=== PATIENT | female | born 1995 | race Caucasian/White ===

== ENCOUNTER 2019-03-18 18:42 | Inpatient (IN) | payer OTHER, SELFPAY ==
[2019-03-18] VITALS (15 sets, daily range): BP systolic 123–134; BP diastolic 72–94; PULSE 91–127; RESP 10–30; TEMP 36.4; O2SAT 100
--- NOTE | ~2019-03-18 | XR_ITS ---
XR chest 1V portable DATE: 03/20/2019 10:14 INDICATION: Tachycardia. Elevated white blood cell count. TECHNIQUE: Portable upright AP chest on 03/20/2019 at 1002 hours COMPARISON: 06/23/2018 portable AP chest FINDINGS: Normal heart size. No hilar or mediastinal enlargement. No pulmonary infiltrate or consolid ation, pleural effusion or pulmonary vascular congestion or pneumothorax. IMPRESSION: No active cardiopulmonary disease Reviewed, dictated and finalized at location A. [employer]
--- NOTE | 2019-03-18 19:00 | ED_ITS ---
I attest that this documentation has been prepared under the direction and in the presence of Anthony Hassan Scribe 03/18/19;19:03 HPI - General Adult General Chief complaint: Abdominal Pain Stated complaint: ?? DKA Time Seen by Provider: 03/18/19 18:54 Source: patient and RN notes reviewed Mode of arrival: ambulatory Limitations: no limitations History of Present Illness HPI narrative: Pt is a 23 y/o female presenting to the ED c/o ABD pain. Pt reports she started experiencing diffuse abdominal pain along with N/V and fatigue earlier today. Pt states she has a Hx of IDDM and reports she has been in DKA previously. Pt notes she has not been missing her doses of Insulin and states her BS's have been both high and low. Onset (ago): unknown (Earlier today) Associated symptoms: malaise and nausea/vomiting Related Data Allergies Allergy/AdvReac Type Severity Reaction Status Date / Time No Known Allergies Allergy Unknown Verified 11/01/18 22:04 Review of Systems Review of Systems: All systems reviewed & are unremarkable except as noted in HPI and below Constitutional: Constitutional: Reports fatigue Gastrointestinal: Gastrointestinal: Reports abdominal pain (Diffuse), Reports nausea and Reports vomiting PMFSH Family History Family History Mother Family history of anemia Other Family history of arthritis Family history of hepatitis Family history of liver disease Social History Social History Smoking status: Never smoker Alcohol intake: never
--- NOTE | 2019-03-18 19:14 | ED.GENADULT ---
HPI - General Adult General Chief complaint: Abdominal Pain Stated complaint: ?? DKA Time Seen by Provider: 03/18/19 18:54 Source: patient Mode of arrival: ambulatory Limitations: no limitations History of Present Illness HPI narrative: Pt is a 23 y/o female presenting to the ED c/o ABD pain. Pt reports she started experiencing diffuse abdominal pain along with N/V and fatigue earlier today. Pt states she has a Hx of IDDM and reports she has been in DKA previously. Pt notes she has not been missing her doses of Insulin and states her BS's have been both high and low. Onset (ago): unknown (Earlier today) Location: abdomen (Diffuse) Associated symptoms: malaise and nausea/vomiting Related Data Allergies Allergy/AdvReac Type Severity Reaction Status Date / Time No Known Allergies Allergy Unknown Verified 03/18/19 19:18 Review of Systems Review of Systems: All systems reviewed & are unremarkable except as noted in HPI and below Constitutional: Constitutional: Reports fatigue Gastrointestinal: Gastrointestinal: Reports abdominal pain (Diffuse), Reports nausea and Reports vomiting PMFSH Family History Family History Mother Family history of anemia Other Family history of arthritis Family history of hepatitis Family history of liver disease Social History Social History Smoking status: Never smoker Alcohol intake: never Gender identity (if verbalized by the patient): Female Exam Narrative: Exam Narrative: APPEARANCE: No acute distress, nontoxic, resting in bed EYES: EOMI HEENT: Normocephalic, atraumatic, oral mucosa dry RESPIRATORY: No respiratory distress Clear to auscultation bilaterally with no rhonchi wheezing or rales. CARDIOVASCULAR: Tachycardic and regular without murmurs rubs or gallops. ABDOMINAL: Soft, nondistended, diffusely tender palpation, no rebound or guarding MUSCULOSKELETAl: Moves all extremities. No clubbing, cyanosis or edema. NEURO: Awake and alert. Following commands, speech normal, no focal deficits SKIN:: Warm, dry. No rashes lesions or abrasions PSYCHIATRIC: Normal affect/mood, Course Course Emergency Course: Reviewed old records Patient continues to have nausea following several doses of nausea medication. Patient p.o. challenged with emesis Discussed with patient and family results of workup and diagnosis. Discussed need for admission. Patient and family understand and agree to current treatment plan Consultations Consultation #1: Discussed case with Hospitalist Dr. Pickering. Accepted the pt for admission. Date: 03/19/19 Time: 00:30 Vital Signs Vital signs: Vital Signs Temperature 97.6 F 03/18/19 19:10 Pulse Rate 116 H 03/18/19 19:10 Respiratory Rate 17 03/18/19 19:10 Blood Pressure 128/94 H 03/18/19 19:10 Pulse Oximetry 100 03/18/19 19:10 Temperature 97.6 F 03/18/19 19:10 Pulse Rate 126 H 03/19/19 00:32 Respiratory Rate 18 03/19/19 00:32 Blood Pressure 138/89 03/19/19 00:32 Pulse Oximetry 98 03/19/19 00:32 Medical Decision Making Vital Signs Vital Signs: Vital Signs Temperature 97.6 F 03/18/19 19:10 Pulse Rate 116 H 03/18/19 19:10 Respiratory Rate 17 03/18/19 19:10 Blood Pressure 128/94 H 03/18/19 19:10 Pulse Oximetry 100 03/18/19 19:10 Temperature 97.6 F 03/18/19 19:10 Pulse Rate 126 H 03/19/19 00:32 Respiratory Rate 18 03/19/19 00:32 Blood Pressure 138/89 03/19/19 00:32 Pulse Oximetry 98 03/19/19 00:32 Lab Data Result diagrams: 03/18/19 20:12 03/18/19 20:12 Labs: Lab Results 03/18/19 03/18/19 03/18/19 Range/Units 19:28 20:11 20:12 WBC 8.5 (4.5-10.0) K/mm3 RBC 4.83 (4.2-5.4) M/mm3 Hgb 13.8 (12.0-15.0) g/dL Hct 40.0 (37.0-47.0) % MCV 82.8 (80-100) fl MCH 28.6 (26-34) pg MCHC 34.5 (32-36) g/dl RDW 14.2 (11.5-14.5) % Plt Count
[2019-03-18 19:32] LABS: Glucose Point of Care 134 (65-105)
[2019-03-18] MEDS: SODIUM CHLORIDE 0.9% IV 1,000 ML 999 ML IV CONT ×2 (20:09→20:39)
--- NOTE | 2019-03-18 20:16 | PC.NURSE ---
Patient unable to provide a urine specimen at this time, refuses catheter.
[2019-03-18 20:17] LABS: Basophils Percent Auto 0.4 % (0.2-1.2); Hemoglobin 13.8 g/dL (12.0-15.0); Immature Granulocyte Absolute 0.03 K/mm3 (0.00-0.031); Immature Granulocyte Percent A 0.4 % (0-0.5); Lymphocytes Absolute Auto 1.18 K/mm3 (0.9-3.2); Lymphocytes Percent Auto 13.9 % (18.3-44.2); Mean Corpuscular HGB Conc 34.5 g/dl (32-36); Mean Corpuscular Hemoglobin 28.6 pg (26-34); Mean Corpuscular Volume 82.8 fl (80-100); Mean Platelet Volume 9.3 fl (7.4-10.4); Monocytes Absolute Auto 0.4 K/mm3 (0.1-0.6); Monocytes Percent Auto 5.2 % (2.6-8.5); Neutrophils Absolute Auto 6.8 K/mm3 (1.3-6.7); Neutrophils Percent Auto 80.1 % (45.5-73.1); Platelet Count Result 422 k/mm3 (150-375); Red Blood Count 4.83 M/mm3 (4.2-5.4); Red Cell Distribution Width 14.2 % (11.5-14.5); White Blood Count 8.5 K/mm3 (4.5-10.0)
[2019-03-18 20:29] LABS: Alanine Aminotransferase 16 U/L (4-35); Albumin Level 4.3 g/dL (3.5-5.1); Alkaline Phosphatase 82 U/L (38-126); Aspartate Amino Transferase 19 U/L (14-36); Bilirubin,Total 0.3 mg/dL (0.2-1.3); Blood Urea Nitrogen 11 mg/dL (7-17); Calcium 9.7 mg/dL (8.4-10.2); Carbon Dioxide 23 mmol/L (22-30); Chloride 101 mmol/L (98-107); Estimated Glomerular Filt Rate > 60; Glucose 146 mg/dL (65-105); Magnesium 1.5 mg/dL (1.6-2.3); Potassium 3.4 mmol/L (3.4-5.0); Sodium 137 mmol/L (137-145)
[2019-03-18 20:30] LABS: Phosphorus < 1.0 mg/dL (2.5-4.5)
[2019-03-18 20:36] LABS: Beta-Hydroxybutyrate/Acetoacetate 0.17 mmol/L (0.02-0.27)
[2019-03-18] MEDS: MAGNESIUM SULF 2 GM/WATER 50ML 2 GM/50 ML BAG IVPB (20:39)
[2019-03-18 21:07] LABS: Add Urine Microscopic? YES; Appearance Urine Clear (Clear); Bilirubin Urine Negative (Negative); Blood Urine Negative (Negative); Color Urine Straw (Yellow); Glucose Urine UA 3+ mg/dL (Negative); Ketones Urine Trace mg/dL (Negative); Leukocyte Esterase Ur Negative LEU/UL (Negative); Nitrate Urine Negative (Negative); Protein Urine Negative (Negative); RBC Urine 0-2 /hpf (0-2); Specific Grav Ur 1.024 (1.001-1.035); Squamous Epithelial Cell Urine Rare /hpf (Few); Urobilinogen Urine Negative mg/dL (<2.0); WBC Urine 0-3
[2019-03-18] MEDS: PROMETHAZINE HCL 25 MG/ML AMPUL 12.5 MG IV PUSH (21:42)
[2019-03-18] MEDS: FAMOTIDINE 20 MG/2 ML VIAL IV PUSH (21:42)
[2019-03-19 00:32] VITALS: BP 138/89; PULSE 126; RESP 18; O2SAT 98
[2019-03-19 01:31] VITALS: BP 150/98; PULSE 115; RESP 17; TEMP 36.8; O2SAT 97
[2019-03-19 01:50] VITALS: BP 136/93; PULSE 110; RESP 14; TEMP 36.2; O2SAT 100; BMI 26.2
[2019-03-19] MEDS: SODIUM CHLORIDE 0.9% IV 1,000 ML 125 ML IV CONT ×3 (01:53→18:21)
[2019-03-19] MEDS: ONDANSETRON INJ 4 MG/2 ML VIAL IV PUSH ×4 (01:54→18:23)
--- NOTE | 2019-03-19 01:59 | PC.NURSE ---
This patient, Karina Fuchs, was admitted to 2 Medical Room 261-01. Patient/family oriented to hospital policies and general routines including ID bracelet, bed and alarms, visiting hours, pain management, procedures, bathroom and other care routines, personal items, smoking policy, room service/diet, and visiting hours. Valuables list has been completed. Information on how to activate the Rapid Response Team has been discussed. Patient/Family are encouraged to report perceived risks to care and to ask questions if they do not understand what they are told or what they should do.
[2019-03-19] MEDS: FAMOTIDINE 20 MG/2 ML VIAL IV PUSH ×2 (08:01→21:14)
[2019-03-19] MEDS: INSULIN ASPART (*BKC) 100 UNITS/ML SUB-Q ×3 (08:47→18:26)
[2019-03-19 09:22] VITALS: BP 110/52; PULSE 100; RESP 16; TEMP 36.8; O2SAT 100
--- NOTE | 2019-03-19 09:25 | HP_ITS ---
DATE OF SERVICE: 03/19/2019 DATE OF PATIENT CONTACT: March 19, 2019, at 5:30 am. CHIEF COMPLAINT: Nausea and vomiting. HISTORY OF PRESENT ILLNESS: The patient is a 23-year-old female with a past medical history of type 1 diabetes mellitus, who frequently comes to the ER for dehydration, ketosis, and intractable nausea and vomiting, who presented back to the ER again with diffuse abdominal pain and nausea and vomiting. The patient's highest glucose before coming to the ER was 386. The patient was seen and evaluated in the ER on the around 7 p.m. The patient reports that she has been having several hours of nausea and vomiting prior to coming to the ER. She denied any hematochezia, emesis, or hematochezia. She has not been having any fevers or chills. She has not missed any of her insulin doses. She reported to the ER staff that her glucoses had been both high and low recently. Her last A1c was 8.7 in October of 2018. The patient has not been having any chest pain or shortness of breath. She denies any dysuria or changes in urinary frequency or hematuria. The patient was last hospitalized for similar symptoms back in October 2018. In the ER, the patient received Zofran and Phenergan with improvement in her nausea, but then she received p.o. challenge and had recurrence of vomiting. At the time of my evaluation, the patient had recently received Zofran and reported that she had no further nausea or vomiting. The patient reports that her abdominal pain has completely resolved. REVIEW OF SYSTEMS: Except as documented, all systems were reviewed and are negative. PAST MEDICAL HISTORY: 1. Type 1 diabetes mellitus since age 14, on Lantus and sliding scale insulin, with mealtime bolus insulin based on carb counting with last hemoglobin A1c of 9.7 in October 2018. 2. Tonsillectomy. 3. in 2017. ALLERGIES: NO KNOWN DRUG ALLERGIES. SOCIAL HISTORY: The patient lives in [place], [place], with her grandfather and her daughter. 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 Bhakta in [place], [place]. She does not drink alcohol or use illicit substances. She is a lifelong nonsmoker. Code status is a full code. Primary care provider is KEANU Torres. FAMILY HISTORY: Mother, siblings, and daughter are healthy. The patient does not know her biological father's family history. HOME MEDICATIONS: 1. Lantus 10 units at bedtime. 2. Humalog sliding scale insulin and bolus based on carb counting. PHYSICAL EXAMINATION: VITAL SIGNS: Temperature is 98.2, pulse 115, respiratory rate 17, blood pressure 150/98, satting 97% on room air. Weight is 62.8 kg. BMI is 26.2. GENERAL: The patient is mildly ill-appearing, appears stated age, well developed, well nourished. HEENT: Mucous membranes are dry. No oropharyngeal erythema. No scleral icterus. No conjunctival pallor. Head is normocephalic, atraumatic. Nares are patent. NECK: No JVD. No lymphadenopathy. No tenderness to palpation. LUNGS: Clear to auscultation bilaterally. No increased work of breathing. CARDIOVASCULAR: Mild sinus tachycardia. No murmurs. 2+ pulses bilateral upper and lower extremities. EXTREMITIES: The patient's hands seem slightly edematous with trace edema. Otherwise, moves all extremities equally. No clubbing or cyanosis. ABDOMEN: Nontender to palpation. Positive bowel sounds. Soft without organomegaly. SKIN: There is a generalized pallor. Cool and dry to touch. PSYCHIATRIC: Flat affect, but cooperative. NEUROLOGIC: The patient is alert and oriented. Speech is clear. No facial asymmetry. LABORATORY DATA: White count 8,500, hemoglobin 13.8, platelet count 422,000. CMP, sodium 137, potassium 3.4, chloride 101, CO2 of 23, BUN 11, creatinine
[2019-03-19 09:52] LABS: Glucose Point of Care 357 (65-105)
[2019-03-19 13:08] LABS: Glucose Point of Care 257 (65-105)
[2019-03-19 14:00] VITALS: BP 108/53; PULSE 118; RESP 16; TEMP 36.6; O2SAT 98
[2019-03-19 16:28] LABS: Blood Urea Nitrogen 14 mg/dL (7-17); Calcium 8.6 mg/dL (8.4-10.2); Carbon Dioxide 14 mmol/L (22-30); Chloride 108 mmol/L (98-107); Estimated CRCL calculation 125 ml/min; Estimated Glomerular Filt Rate > 60; Glucose 234 mg/dL (65-105); Potassium 4.7 mmol/L (3.4-5.0); Sodium 134 mmol/L (137-145)
--- NOTE | 2019-03-19 16:28 | PM.IMPN ---
Subjective Interval history: PT seen earlier today by community outreach advocate pt admitted for intractable nausea and vomiting, history of diabetes type 1 pt has history of several admissions with DKA, presently sugars are @200s pt having ongoing vomiting, Beta hydroxybutyrate was NL, stat BMP ordered, coninue iv fluids and iv antiemetics. Pt may have cyclic vomiting syndrome may benefit from reglan will consult GI tomorrow. Objective Data Vital Signs Vital Signs: Vital Signs - 24 hr 03/18/19 19:10 03/18/19 20:42 03/18/19 21:19 Temperature 36.4 C Pulse Rate 116 H 114 H 109 H Respiratory Rate 17 14 14 Blood Pressure 128/94 H 124/72 Pulse Oximetry 100 100 100 03/18/19 21:30 03/18/19 21:31 03/18/19 21:45 Temperature Pulse Rate 91 127 H 111 H Respiratory Rate 20 30 H 18 Blood Pressure 134/88 Pulse Oximetry 03/18/19 22:00 03/18/19 22:01 03/18/19 22:15 Temperature Pulse Rate 113 H 115 H 110 H Respiratory Rate 11 L 14 17 Blood Pressure 132/88 Pulse Oximetry 03/18/19 22:30 03/18/19 22:31 03/18/19 22:45 Temperature Pulse Rate 109 H 114 H 112 H Respiratory Rate 14 20 21 H Blood Pressure 131/83 Pulse Oximetry 03/18/19 23:00 03/18/19 23:01 03/18/19 23:15 Temperature Pulse Rate 110 H 104 H 111 H Respiratory Rate 10 L 17 15 Blood Pressure 123/82 Pulse Oximetry 03/19/19 00:32 03/19/19 01:31 03/19/19 01:50 Temperature 36.8 C 36.2 C L Pulse Rate 126 H 115 H 110 H Respiratory Rate 18 17 14 Blood Pressure 138/89 150/98 H 136/93 H Pulse Oximetry 98 97 100 03/19/19 09:22 03/19/19 14:00 Temperature 36.8 C 36.6 C Pulse Rate 100 118 H Respiratory Rate 16 16 Blood Pressure 110/52 L 108/53 L Pulse Oximetry 100 98 Intake/Output Intake/Output: Intake & Output 03/16/19 03/17/19 03/18/19 03/19/19 23:59 23:59 23:59 23:59 Intake Total 2049 1580 Balance 2049 1579 Meds/Results Medications: Active Medications Generic Name Dose Route Start Last Admin Trade Name Freq PRN Reason Stop Dose Admin Dextrose 12.5 gm 03/19/19 03:05 Dextrose 50% Syringe IV PUSH PRN PRN Hypoglycemia Protocol Famotidine 20 mg 03/19/19 09:00 03/19/19 08:01 Pepcid Iv IV PUSH 20 mg Q12HR BOB Administration Glucagon 1 mg 03/19/19 03:05 Glucagon For Inj IM PRN PRN Hypoglycemia Protocol Glucose 15 gm 03/19/19 03:05 Glutose 15 PO PRN PRN Hypoglycemia Protocol Sodium Chloride 1,000 mls @ 125 mls/hr 03/19/19 00:35 03/19/19 09:45 Normal Saline Iv IV CONT 125 mls/hr .Q8H BOB Administration Dextrose 1,000 mls @ 100 mls/hr 03/19/19 03:05 Dextrose 5% 1,000 Ml IVPB PRN PRN Hypoglycemia Protocol Insulin Aspart 2 - 5 units 03/19/19 08:00 03/19/19 12:32 Novolog SUB-Q 3 units TIDWM BOB Administration Protocol Insulin Glargine 10 units 03/19/19 21:00 Lantus SUB-Q 04/18/19 21:01 HS BOB Ondansetron HCl 4 mg 03/19/19 00:34 03/19/19 12:37 Zofran Inj IV PUSH 4 mg Q4H PRN Administration Nausea Labs Labs: Laboratory Results - last 24 hr 03/18/19 03/18/19 03/18/19 19:28 20:11 20:12 WBC 8.5 RBC 4.83 Hgb 13.8 Hct 40.0 MCV 82.8 MCH 28.6 MCHC 34.5 RDW 14.2 Plt Count 422 H MPV 9.3 Immature Gran % (Auto) 0.4 Neut % (Auto) 80.1 H Lymph % (Auto) 13.9 L [place] % (Auto) 5.2 Eos % (Auto) 0.0 Baso % (Auto) 0.4 Lymph # (Auto) 1.18 [place] # (Auto) 0.4 Eos # (Auto) 0.0 Baso # (Auto) 0.0 Abs Immat Gran (auto) 0.03 Absolute Neuts (auto) 6.8 H Absolute Nucleated RBC 0.0 Nucleated RBC % 0.0 Sodium Potassium Chloride Carbon Dioxide BUN Creatinine Estim Creat Clear Calc Estimated GFR Glucose POC Capillary Glucose 134 H Calcium Phosphorus Magnesium Total Bilirubin AST ALT Alkaline Phosphatase Total Protein Albumin Beta-Hydroxybuty
[2019-03-19 18:49] LABS: Glucose Point of Care 271 (65-105)
[2019-03-19] MEDS: INSULIN GLARGINE (*BKC) 100 UNITS/ML 10 UNITS SUB-Q (21:14)
[2019-03-19 21:23] LABS: Glucose Point of Care 237 (65-105)
[2019-03-19 22:00] VITALS: BP 142/71; PULSE 123; RESP 18; TEMP 36.9; O2SAT 100
[2019-03-20] MEDS: SODIUM CHLORIDE 0.9% IV 1,000 ML 125 ML IV CONT ×2 (03:26→10:15)
[2019-03-20 05:55] VITALS: BP 123/73; PULSE 122; RESP 16; TEMP 36.4; O2SAT 100
--- NOTE | 2019-03-20 06:55 | PC.NURSE ---
Spoke with daughters mother and she stated that the patients last hospital stay in [place] they did an upper GI scope and found an esophagus ulcer.
[2019-03-20 09:22] LABS: Basophils Absolute Auto 0.1 K/mm3 (0.0-0.1); Basophils Percent Auto 0.3 % (0.2-1.2); Hematocrit 41.2 % (37.0-47.0); Hemoglobin 13.3 g/dL (12.0-15.0); Immature Granulocyte Absolute 0.13 K/mm3 (0.00-0.031); Immature Granulocyte Percent A 0.7 % (0-0.5); Lymphocytes Percent Auto 8.5 % (18.3-44.2); Mean Corpuscular HGB Conc 32.3 g/dl (32-36); Mean Corpuscular Hemoglobin 28.6 pg (26-34); Mean Corpuscular Volume 88.6 fl (80-100); Mean Platelet Volume 9.6 fl (7.4-10.4); Monocytes Absolute Auto 0.6 K/mm3 (0.1-0.6); Monocytes Percent Auto 3.4 % (2.6-8.5); Neutrophils Absolute Auto 15.3 K/mm3 (1.3-6.7); Neutrophils Percent Auto 87.1 % (45.5-73.1); Platelet Count Result 428 k/mm3 (150-375); Red Blood Count 4.65 M/mm3 (4.2-5.4); Red Cell Distribution Width 14.1 % (11.5-14.5); White Blood Count 17.6 K/mm3 (4.5-10.0)
[2019-03-20] MEDS: FAMOTIDINE 20 MG/2 ML VIAL IV PUSH (09:30)
[2019-03-20 09:32] LABS: Alanine Aminotransferase 14 U/L (4-35); Albumin Level 4.3 g/dL (3.5-5.1); Alkaline Phosphatase 100 U/L (38-126); Aspartate Amino Transferase 19 U/L (14-36); Bilirubin,Total 0.7 mg/dL (0.2-1.3); Blood Urea Nitrogen 11 mg/dL (7-17); Calcium 8.9 mg/dL (8.4-10.2); Carbon Dioxide 7 mmol/L (22-30); Chloride 104 mmol/L (98-107); Estimated CRCL calculation 125 ml/min; Estimated Glomerular Filt Rate > 60; Glucose 246 mg/dL (65-105); Sodium 130 mmol/L (137-145)
[2019-03-20 09:38] LABS: Glucose Point of Care 242 (65-105)
[2019-03-20 09:45] VITALS: BP 116/64; PULSE 125; RESP 18; TEMP 36.6; O2SAT 100
[2019-03-20 10:06] LABS: Magnesium 1.7 mg/dL (1.6-2.3)
[2019-03-20] MEDS: INSULIN ASPART (*BKC) 100 UNITS/ML SUB-Q ×2 (10:14→13:22)
[2019-03-20 10:42] LABS: Lactic Acid 1.4 mmol/L (0.7-2.1)
[2019-03-20 11:40] LABS: Add Urine Microscopic? YES; Appearance Urine Clear (Clear); Bilirubin Urine Negative (Negative); Blood Urine Negative (Negative); Color Urine Colorless (Yellow); Glucose Urine UA 3+ mg/dL (Negative); Ketones Urine 2+ mg/dL (Negative); Leukocyte Esterase Ur Negative LEU/UL (Negative); Mucus Urine Rare /lpf; Nitrate Urine Negative (Negative); Protein Urine Negative (Negative); RBC Urine 0-2 /hpf (0-2); Specific Grav Ur 1.018 (1.001-1.035); Squamous Epithelial Cell Urine Rare /hpf (Few); Urobilinogen Urine Negative mg/dL (<2.0); WBC Urine 0-3
--- NOTE | 2019-03-20 12:05 | PC.NURSE ---
Call to Dr. Matthews at 0900 in request that he come evaluate patient. Patient diaphoretic, red cheeks, and very lethargic. Patient only answering to yes/no questions. Obtained vital signs and HR 125, afebrile. Also noted that her WBC has increased significantly from yesterday to 17.8. Received orders from Cassie to obtain CXR, lactic acid, UA w/reflex, and BC stat. He will be up to assess patient.
--- NOTE | 2019-03-20 12:08 | PC.NURSE ---
UA results (positive ketones, glucose) reported to Dr. Matthews. Received verbal orders to obtain stat BMP after bag of fluids has completed and call him with results.
[2019-03-20 12:33] LABS: Glucose Point of Care 223 (65-105)
--- NOTE | 2019-03-20 12:36 | WPDGICN ---
Assessment and Plan Assessment and plan (1) Nausea and vomiting: Qualifiers: Vomiting Intractability: intractable Vomiting type: unspecified Qualified Code(s): R11.2 - Nausea with vomiting, unspecified Code(s): R11.2 - Nausea with vomiting, unspecified Status: Acute Assessment and Plan: multiple admissions with intractable n/v and also DKA. She claims that had recent EGD at [facility] (will get records) and apparently ulcers thus will start ppi. as outpatient can check gastric emptying study to check for gastroparesis. will resume her reglan (2) Diabetes mellitus type 1 with manifestations, uncontrolled: Code(s): E10.8 - Type 1 diabetes mellitus with unspecified complications; E10.65 - Type 1 diabetes mellitus with hyperglycemia Status: Acute Assessment and Plan: monitor labs including bicarb, on insulin. Multiple admissions with DKA (3) Abdominal pain: Code(s): R10.9 - Unspecified abdominal pain Status: Acute Assessment and Plan: pain now is resolved, will advance her diet as tolerated Consult date/time: 03/20/19 12:36 Reason for consult: nausea and vomiting HPI: Karina Fuchs is a 23 year old female female with past medical history of type 1 diabetes mellitus on insulin and multiple ER visits with admissions to the hospital with DKA and intractable N/V, she says that last admission was at [facility] about a month ago where she had EGD with ulcers . She has intermittent nausea at home and has been using reglan at least for a month. She came to ER again with diffuse abdominal pain and nausea and vomiting. Her glucose was 386. Denies hematochezia, fevers or chills. She was admitted and hydrated, receiving zofran as needed with pepcid. She is doing better, no more vomiting and abdominal pain improved. Denies eoth or marihuana use. CXR normal, had leukocytosis and low co2 with normal lactic acid, normal lft's. Review of Systems Constitutional: Constitutional: Reports poor appetite Eyes: Eyes: Denies blurry vision ENT: Reports hearing normal, Denies headache(s) and Denies neck pain Cardiovascular: Cardiovascular: Denies chest pain and Denies dyspnea Respiratory: Respiratory: Denies dyspnea Gastrointestinal: Gastrointestinal: Reports abdominal pain, Reports nausea and Reports vomiting Genitourinary: Genitourinary: Denies dysuria Musculoskeletal: Musculoskeletal: Denies neck pain Integumentary/Breasts: Skin/Breast: Denies dry skin Neurologic: Reports Normal hearing present, Denies headache(s) and Denies weakness Psychiatric: Psychiatric: Denies anxiety Endocrine: Endocrine: Denies change in body appearance Hematologic/Lymphatic: Hematologic/Lymphatic: Denies easy bleeding Allergic/Immunologic: Allergic/Immunologic: Denies urticaria PMFSH Family History Family History Mother Family history of anemia Other Family history of arthritis Family history of hepatitis Family history of liver disease Social History Social History Smoking status: Never smoker Alcohol intake: current Substance use: never Substance use type: does not use Gender identity (if verbalized by the patient): Female Spiritual care concerns: No Agree to blood products: Yes Meds Home Medications and Allergies Home Medications Medication Instructions Recorded Confirmed Type insulin glargine [Basaglar KwikPen 10 unit SUBCUT HS 03/19/19 03/19/19 History U-100 Insulin] insulin lispro [Admelog U-100 See Protocol SUBCUT ACHS 03/19/19 03/19/19 History Insulin lispro] Allergies Allergy/AdvReac Type Severity Reaction Status Date / Time No Known Allergies Allergy Unknown Verified 03/18/19 19:18 Vital Signs Vital Signs - 24 hr 03/19/19 14:00 03/19/19 22:00 03/20/19 05:55 Temperature 97.9 F 98.5 F 97.6 F Pulse Rate 118 H 123 H 122 H Respiratory
[2019-03-20 14:00] VITALS: BP 115/67; PULSE 124; RESP 17; TEMP 36.8; O2SAT 100
[2019-03-20] MEDS: SODIUM CHLORIDE 0.9% IV 1,000 ML 200 ML IV CONT (16:00)
--- NOTE | 2019-03-20 16:12 | PC.NURSE ---
Patient still appearing very ill. Has not tolerated any intake all day, face flushed, diaphoretic. Vital signs stable other than HR 124. Called and notified Dr. Matthews. He is awaiting lab results and may transfer patient. Will continue to monitor.
[2019-03-20 17:45] LABS: Glucose Point of Care 138 (65-105)
[2019-03-20 18:05] LABS: Blood Urea Nitrogen 9 mg/dL (7-17); Calcium 8.8 mg/dL (8.4-10.2); Carbon Dioxide 6 mmol/L (22-30); Chloride 108 mmol/L (98-107); Estimated CRCL calculation 152 ml/min; Estimated Glomerular Filt Rate > 60; Glucose 141 mg/dL (65-105); Potassium 5.4 mmol/L (3.4-5.0); Sodium 132 mmol/L (137-145)
--- NOTE | 2019-03-20 18:27 | PC.NURSE ---
261 lab values called to Dr. Matthews.
[2019-03-20] MEDS: SODIUM CHLORIDE 0.9% IV 2,000 ML 999 ML IV CONT (18:39)
--- NOTE | 2019-03-20 18:46 | PM.IMPN ---
Progress Note: A&P Assessment and Plan (1) Diabetes mellitus type 1 with manifestations, uncontrolled: Code(s): E10.8 - Type 1 diabetes mellitus with unspecified complications; E10.65 - Type 1 diabetes mellitus with hyperglycemia Status: Acute Assessment and Plan: Patient is a 23-year-old female with a history of type 1 diabetes presented emergency department with a complaint of nausea and vomiting patient was started on antiemetic seen by environmental health specialist was clinically stable and her nausea and vomiting had a resolve and patient was started on clear liquid, this morning I was called assess the patient patient appeared quite somnolent but denies any abdominal pain nausea or vomiting fever or chills denies any dysuria or frequency of urination, her white count were elevated I started the patient on Rocephin ordered blood culture, urine and chest x-ray, increase her fluid to 200 cc/hours and order stat BMP unfortunately it was difficult to draw the blood as patient was continuously hemolyzing finally patient's BMP showed metabolic acidosis with mild DKA spoke with the military administrative technician recommended to 2 L bolus and transfer the patient to ICU for low-dose insulin drip. presently her blood glucose is 135. (2) Nausea and vomiting: Qualifiers: Vomiting Intractability: intractable Vomiting type: unspecified Qualified Code(s): R11.2 - Nausea with vomiting, unspecified Code(s): R11.2 - Nausea with vomiting, unspecified Status: Acute Assessment and Plan: plan is above Time Spent With Patient Time with patient: 25 - 35 minutes Subjective Interval history: Patient is a 23-year-old female with a history of type 1 diabetes presented emergency department with a complaint of nausea and vomiting patient was started on antiemetic seen by environmental health specialist was clinically stable and her nausea and vomiting had a resolve and patient was started on clear liquid, this morning I was called assess the patient patient appeared quite somnolent but denies any abdominal pain nausea or vomiting fever or chills denies any dysuria or frequency of urination, her white count were elevated I started the patient on Rocephin ordered blood culture, urine and chest x-ray, increase her fluid to 200 cc/hours and order stat BMP unfortunately it was difficult to draw the blood as patient was continuously hemolyzing finally patient's BMP showed metabolic acidosis with mild DKA spoke with the military administrative technician recommended to 2 L bolus and transfer the patient to ICU for low-dose insulin drip. presently her blood glucose is 135. Also spoke with Dr. Pickering to let her know that patient was transferred to ICU, Review of Systems Constitutional: Constitutional: Reports as per HPI Eyes: Eyes: Reports as per HPI ENT: Reports as per HPI Cardiovascular: Cardiovascular: Reports as per HPI Respiratory: Respiratory: Reports as per HPI Gastrointestinal: Gastrointestinal: Reports as per HPI Genitourinary: Genitourinary: Reports as per HPI Musculoskeletal: Musculoskeletal: Reports as per HPI Integumentary/Breasts: Skin/Breast: Reports as per HPI Neurologic: Reports as per HPI Psychiatric: Psychiatric: Reports as per HPI Exam Const: General: comfortable and no acute distress Other: Patient is somnolent HENMT: General nose exam: nares normal Mouth: Yes moist mucous membranes Eyes: General: appearance normal, both eyes and all related structures Neck: Neck: supple Resp: Effort & Inspection: normal respiratory effort Auscultation: clear to auscultation bilaterally Cardio: Rate: regular rate Rhythm: regular rhythm GI: Palpation (GI): Yes soft Auscultation: normal bowel sounds Skin: General skin exam: normal color and no rashes or lesions noted Neuro: Speech: normal speech Extrem: General: normal to inspection Psych: Affect: normal affect Objective Data Vital Signs Vital Signs: Vital Signs - 24 hr 03/19/19 22:00 03/20/19 05:55
--- NOTE | 2019-03-20 19:21 | PC.NURSE ---
Patient to ICU per bed at 1915. Report given to MARY Sy. Notified patients mother, Karen.
[2019-03-20 19:25] LABS: Glucose Point of Care 138 (65-105)
[2019-03-20 19:35] LABS: Beta-Hydroxybutyrate/Acetoacetate 5.78 mmol/L (0.02-0.27)
[2019-03-20 20:00] VITALS: BP 137/86; PULSE 120; PULSE 124; RESP 20; TEMP 36.4; O2SAT 99
[2019-03-20 20:25] LABS: Glucose Point of Care 136 (65-105)
[2019-03-20] MEDS: KCL 20 MEQ/D5/0.45% SOD CHL 1,000 ML 150 ML IV CONT (21:17)
--- NOTE | 2019-03-20 21:27 | PC.NURSE ---
This patient, Karina Fuchs, was received from [room 261] on 03/20/19 at 1915. Personal belongings list checked and signed. Patient/family oriented to unit policies and routines
[2019-03-20 21:45] LABS: Glucose Point of Care 111 (65-105)
[2019-03-20 22:00] VITALS: BP 131/96; PULSE 118; RESP 20; TEMP 36.6; O2SAT 100
[2019-03-20 22:09] LABS: Blood Urea Nitrogen 7 mg/dL (7-17); Calcium 8.1 mg/dL (8.4-10.2); Carbon Dioxide 7 mmol/L (22-30); Chloride 109 mmol/L (98-107); Estimated CRCL calculation 152 ml/min; Estimated Glomerular Filt Rate > 60; Glucose 110 mg/dL (65-105); Potassium 4.2 mmol/L (3.4-5.0); Sodium 132 mmol/L (137-145)
[2019-03-20 22:52] LABS: Glucose Point of Care 108 (65-105)
[2019-03-21] VITALS (13 sets, daily range): BP systolic 108–165; BP diastolic 68–104; PULSE 105–129; RESP 15–22; TEMP 36.7–36.9; O2SAT 22–100
[2019-03-21 00:03] LABS: Glucose Point of Care 163 (65-105)
[2019-03-21 01:11] LABS: Glucose Point of Care 187 (65-105)
[2019-03-21 02:02] LABS: Glucose Point of Care 182 (65-105)
[2019-03-21 03:02] LABS: Glucose Point of Care 166 (65-105)
[2019-03-21] MEDS: KCL 20 MEQ/D5/0.45% SOD CHL 1,000 ML 150 ML IV CONT ×4 (03:46→23:30)
[2019-03-21 04:19] LABS: Glucose Point of Care 130 (65-105)
[2019-03-21 05:05] LABS: Glucose Point of Care 128 (65-105)
[2019-03-21 05:08] LABS: Blood Urea Nitrogen 5 mg/dL (7-17); Calcium 8.5 mg/dL (8.4-10.2); Carbon Dioxide 13 mmol/L (22-30); Chloride 107 mmol/L (98-107); Estimated CRCL calculation 152 ml/min; Estimated Glomerular Filt Rate > 60; Glucose 123 mg/dL (65-105); Potassium 3.9 mmol/L (3.4-5.0); Sodium 131 mmol/L (137-145)
[2019-03-21 06:09] LABS: Glucose Point of Care 165 (65-105)
[2019-03-21 07:02] LABS: Glucose Point of Care 141 (65-105)
[2019-03-21 08:14] LABS: Glucose Point of Care 148 (65-105)
[2019-03-21] MEDS: LACTATED RINGERS 1,000 ML 999 ML IV CONT (08:26)
[2019-03-21 09:02] LABS: Glucose Point of Care 137 (65-105)
--- NOTE | 2019-03-21 09:07 | WPDCNINT ---
Assessment and Plan Assessment and plan (1) DKA (diabetic ketoacidoses): Code(s): E11.10 - Type 2 diabetes mellitus with ketoacidosis without coma Status: Acute Assessment and Plan: patient admitted with nausea, vomiting, abdominal pain. - Was transferred to the ICU on 03/20/2019 with severe metabolic acidosis, elevated anion gap And increased beta hydroxybutyrate - patient was given 2 L IV fluids and started on insulin infusion per DKA protocol - remains acidotic, will give additional IV fluid bolus and continue insulin infusion (2) Dehydration: Code(s): E86.0 - Dehydration Status: Acute Assessment and Plan: dehydration likely related to nausea and vomiting - continue hydration and monitor urine output (3) Nausea and vomiting: Qualifiers: Vomiting Intractability: intractable Vomiting type: unspecified Qualified Code(s): R11.2 - Nausea with vomiting, unspecified Code(s): R11.2 - Nausea with vomiting, unspecified Status: Acute Assessment and Plan: patient on Reglan, Zofran with improvement in vomiting but continues to have nausea. - GI evaluated the patient, likely gastroparesis, will need gastric emptying study as an outpatient, recommended Reglan and PPI (4) Diabetes mellitus: Qualifiers: Diabetes mellitus complication status: with other specified complication Diabetes mellitus type: type 1 Qualified Code(s): E10.69 - Type 1 diabetes mellitus with other specified complication Code(s): E11.9 - Type 2 diabetes mellitus without complications Status: Acute Assessment and Plan: Patient with history of diabetes type 1 with multiple admissions for DKA - last hemoglobin A1c was 8.7 on 11/03/2018 - will recheck hemoglobin A1c - will transition to long-acting insulin and sliding scale insulin once acidosis resolves (5) Abdominal pain: Code(s): R10.9 - Unspecified abdominal pain Status: Acute Assessment and Plan: resolved, likely related to DKA (6) DVT prophylaxis: Code(s): Z29.9 - Encounter for prophylactic measures, unspecified Status: Acute Assessment and Plan: DVT prophylaxis: SCDs. stress ulcer prophylaxis: Protonix Additional Plan discussed with patient in details and updated her with her condition and plan of care. She is aware that she is going to be on the insulin drip until her acidosis resolves and will be in the ICU until then. Code status; full code critical care time spent: 37 minutes Consult date: 03/21/19 Time Seen: 07:09 Reason for consult: diabetic ketoacidosis, nausea, vomiting, abdominal pain, hydration HPI: Karina Fuchs is a 23 year old female with past medical history of diabetes type 1, history of DKA with multiple admissions to [facility], gastroparesis, history of nausea and vomiting presented the ED on 03/18/2019 with complains of abdominal pain, nausea, vomiting, fatigue this started on the day of admission. Patient denying missing any of her insulin doses. In the ED patient a blood sugar of 386. Patient was complaining of intractable nausea and vomiting. Patient was admitted to the medical floor with antiemetics. Patient's home Lantus was restarted. Last evening on 03/20/2019 the hospitalist as patient appeared somnolent with continuing nausea and vomiting. Patient denied any dysuria or increased urinary frequency. ABGs were obtained and showed a pH of 7.12, pCO2 13.6, PO2 126.9, bicarb 4.4. Beta hydroxybutyrate was elevated to 5.78. Patient was given 2 L IV fluids, transfer the ICU for DKA management. Patient was started on insulin infusion per DKA protocol in the ICU patient seen examined the ICU this morning. Denies any pain, nausea, vomiting. patient states she is tired. Hemodynamically stable, tachycardic, low urine output. Ordered an additional IV fluid bolus this morning. Patient remains severely a
[2019-03-21 10:01] LABS: Glucose Point of Care 114 (65-105)
[2019-03-21 10:22] LABS: Blood Urea Nitrogen 4 mg/dL (7-17); Calcium 8.2 mg/dL (8.4-10.2); Carbon Dioxide 13 mmol/L (22-30); Chloride 103 mmol/L (98-107); Estimated CRCL calculation 195 ml/min; Estimated Glomerular Filt Rate > 60; Glucose 138 mg/dL (65-105); Potassium 3.6 mmol/L (3.4-5.0); Sodium 129 mmol/L (137-145)
[2019-03-21 11:07] LABS: Glucose Point of Care 154 (65-105)
[2019-03-21 11:08] LABS: Hemoglobin A1C 9.4 % (<5.7)
--- NOTE | 2019-03-21 11:22 | PCDIET ---
ICU Rounding Note: Pt current nutrition is NPO. Nutrition recommendation: ADAT Last recorded weight is 63.8 kg. Bowel Motility: Labs Reviewed:Na 129, BUN 4, Cr 0.3, Glu 138 Meds Noted:Rocephin, Insulin, reglan, zofran, protonix, KCl Additional Notes: Following daily in ICU rounds.
[2019-03-21 12:08] LABS: Glucose Point of Care 145 (65-105)
[2019-03-21 13:11] LABS: Glucose Point of Care 147 (65-105)
[2019-03-21 13:45] LABS: Blood Urea Nitrogen 3 mg/dL (7-17); Calcium 8.4 mg/dL (8.4-10.2); Carbon Dioxide 17 mmol/L (22-30); Chloride 101 mmol/L (98-107); Estimated CRCL calculation 195 ml/min; Estimated Glomerular Filt Rate > 60; Glucose 145 mg/dL (65-105); Potassium 3.5 mmol/L (3.4-5.0); Sodium 130 mmol/L (137-145)
[2019-03-21 14:11] LABS: Glucose Point of Care 129 (65-105)
[2019-03-21 15:17] LABS: Glucose Point of Care 151 (65-105)
--- NOTE | 2019-03-21 15:20 | WPDGIPROGNO ---
Progress Note: A&P Assessment and Plan (1) DKA (diabetic ketoacidoses): Code(s): E11.10 - Type 2 diabetes mellitus with ketoacidosis without coma Status: Acute Assessment and Plan: on insulin drip now, she was acidotic yesterday (2) Dehydration: Code(s): E86.0 - Dehydration Status: Acute Assessment and Plan: supportive care, on ivf's (3) Abdominal pain: Code(s): R10.9 - Unspecified abdominal pain Status: Acute (4) Nausea and vomiting: Qualifiers: Vomiting Intractability: intractable Vomiting type: unspecified Qualified Code(s): R11.2 - Nausea with vomiting, unspecified Code(s): R11.2 - Nausea with vomiting, unspecified Status: Acute Assessment and Plan: improved but she does not feeling like eating, on reglan. Pending EGD report from [facility]. Supportive care, antiemetics prn, ? gastroparesis, poorly controlled dm (5) Diabetes mellitus type 1 with manifestations, uncontrolled: Code(s): E10.8 - Type 1 diabetes mellitus with unspecified complications; E10.65 - Type 1 diabetes mellitus with hyperglycemia Status: Acute Subjective Interval history: she is not eating because lack of appetite, denies much nausea. Transferred to ICU because DKA. Denies much abdominal pain. Review of Systems Constitutional: Constitutional: Reports fatigue and Reports malaise Eyes: Eyes: Denies blurry vision ENT: Reports hearing normal, Denies headache(s) and Denies neck pain Cardiovascular: Cardiovascular: Denies chest pain and Denies dyspnea Respiratory: Respiratory: Denies dyspnea Gastrointestinal: Gastrointestinal: Reports nausea Genitourinary: Genitourinary: Denies dysuria Musculoskeletal: Musculoskeletal: Denies neck pain Integumentary/Breasts: Skin/Breast: Denies dry skin Neurologic: Reports Normal hearing present, Denies headache(s) and Denies weakness Psychiatric: Psychiatric: Denies anxiety Endocrine: Endocrine: Denies change in body appearance Hematologic/Lymphatic: Hematologic/Lymphatic: Denies easy bleeding Allergic/Immunologic: Allergic/Immunologic: Denies urticaria Exam Const: General: no acute distress and uncomfortable HENMT: Mouth: Yes dry mucous membranes Eyes: General: appearance normal, both eyes and all related structures Sclera: sclerae normal Pupils: PERRL Neck: Neck: supple and no JVD Resp: Effort & Inspection: normal respiratory effort Auscultation: clear to auscultation bilaterally Cardio: Rate: regular rate and tachycardic GI: Palpation (GI): Yes soft Auscultation: normal bowel sounds Other: non tender, non distended : Other: deferred Urinary Catheter: Urinary Catheter: urine clear Skin: General skin exam: normal color Neuro: Other: patient is awake, alert, answers to questions and follows simple commands Extrem: Other: no edema Psych: Affect: anxious affect Other: depression Objective Data Vital Signs Vital Signs: Vital Signs - 24 hr 03/20/19 20:00 03/20/19 22:00 03/21/19 00:00 Temperature 97.6 F 97.9 F 98.0 F Pulse Rate 120 H 118 H 129 H Respiratory Rate 20 20 20 Blood Pressure 137/86 131/96 H 144/91 H Pulse Oximetry 99 100 100 03/21/19 02:00 03/21/19 04:00 03/21/19 06:00 Temperature 98.2 F 98.0 F 98.4 F Pulse Rate 117 H 118 H 117 H Respiratory Rate 18 18 20 Blood Pressure 137/89 110/68 131/78 Pulse Oximetry 100 97 100 03/21/19 08:00 03/21/19 10:00 03/21/19 10:49 Temperature 98.1 F Pulse Rate 113 H 118 H 112 H Respiratory Rate 22 H 15 Blood Pressure 134/83 134/86 Pulse Oximetry 22 L 100 03/21/19 12:00 Temperature 98.5 F Pulse Rate 118 H Respiratory Rate 19 Blood Pressure 128/87 Pulse Oximetry 99 Intake/Output Intake/Output: Intake & Output 03/18/19 03/19/19 03/20/19 03/21/19 23:59 23:59 23:59 23:59 Intake Total 2049 3130 9445 4071 Balance 2049 3130 5740 4071 Meds/Results Medications: Active Medications Generic Name D
[2019-03-21 16:20] LABS: Glucose Point of Care 178 (65-105)
[2019-03-21 17:18] LABS: Glucose Point of Care 136 (65-105)
[2019-03-21 18:08] LABS: Glucose Point of Care 146 (65-105)
[2019-03-21 19:13] LABS: Glucose Point of Care 137 (65-105)
[2019-03-21 20:42] LABS: Glucose Point of Care 134 (65-105)
[2019-03-21 21:30] LABS: Blood Urea Nitrogen 3 mg/dL (7-17); Calcium 8.5 mg/dL (8.4-10.2); Carbon Dioxide 22 mmol/L (22-30); Chloride 98 mmol/L (98-107); Estimated CRCL calculation 195 ml/min; Estimated Glomerular Filt Rate > 60; Glucose 129 mg/dL (65-105); Sodium 131 mmol/L (137-145)
[2019-03-21 21:32] LABS: Glucose Point of Care 130 (65-105)
[2019-03-21 22:14] LABS: Glucose Point of Care 151 (65-105)
[2019-03-21] MEDS: INSULIN GLARGINE (*BKC) 100 UNITS/ML 20 UNITS SUB-Q (23:30)
[2019-03-21 23:39] LABS: Glucose Point of Care 150 (65-105)
[2019-03-22] VITALS (10 sets, daily range): BP systolic 107–141; BP diastolic 55–99; PULSE 75–138; RESP 16–98; TEMP 36.5–37.1; O2SAT 16–99; BMI 25.4
--- NOTE | 2019-03-22 01:52 | PC.NURSE ---
2300: Call made out to Dr. Sandoval regarding patient's lab results and blood sugars. Patient's blood sugars have been WNL and Anion Gap is less than 12. Orders from Dr. Sandoval are to start patient on Lantus 20 units at night, SSI and d/c Insulin drip 2 hours after giving the patient her night time dose of Lantus. Orders also given for BMP at 0500am, accuchecks to be ACHS and patient can resume a full liquid diet.
[2019-03-22 06:52] LABS: Blood Urea Nitrogen 4 mg/dL (7-17); Carbon Dioxide 23 mmol/L (22-30); Chloride 97 mmol/L (98-107); Estimated CRCL calculation 238 ml/min; Estimated Glomerular Filt Rate > 60; Glucose 48 mg/dL (65-105); Potassium 3.3 mmol/L (3.4-5.0); Sodium 132 mmol/L (137-145)
[2019-03-22] MEDS: DEXTROSE 50% 25 GM/50 ML SYRINGE IV PUSH (06:57)
[2019-03-22 06:58] LABS: Glucose Point of Care 47 (65-105)
--- NOTE | 2019-03-22 07:17 | PC.NURSE ---
0630: Critical Lab Glucose called to me with a value of 48. I got an accucheck and it was 48. Spoke with Dr. Sandoval regarding this critical lab. Orders are to give D50 now and recheck blood sugar in 15 minutes. Patient is alert and orientated x3 and currently eating ice chips and sitting up in the bed. Only complaint from patient is that she feels shaky. This finding was reported to the day shift nurse Hanh.
[2019-03-22 07:28] LABS: Glucose Point of Care 116 (65-105)
--- NOTE | 2019-03-22 07:28 | PC.NURSE ---
0728: Blood sugar rechecked after 1/2 amp of D50 was given. Blood sugar is now 116 and patient has no complaints at this time.
[2019-03-22 08:56] LABS: Glucose Point of Care 99 (65-105)
--- NOTE | 2019-03-22 09:18 | WPDINTPN ---
Progress Note: A&P Assessment and Plan (1) DKA (diabetic ketoacidoses): Code(s): E11.10 - Type 2 diabetes mellitus with ketoacidosis without coma Status: Acute Assessment and Plan: patient admitted with nausea, vomiting, abdominal pain. - Was transferred to the ICU on 03/20/2019 with severe metabolic acidosis, elevated anion gap And increased beta hydroxybutyrate - patient has been transitioned to long-acting insulin Lantus, sliding scale insulin with Accu-Cheks. Insulin infusion was stoppedl (2) Dehydration: Code(s): E86.0 - Dehydration Status: Acute Assessment and Plan: dehydration likely related to nausea and vomiting - patient adequately fluid-resuscitated, continue to encourage p.o. intake (3) Nausea and vomiting: Qualifiers: Vomiting Intractability: intractable Vomiting type: unspecified Qualified Code(s): R11.2 - Nausea with vomiting, unspecified Code(s): R11.2 - Nausea with vomiting, unspecified Status: Acute Assessment and Plan: RESOLVED: patient on Reglan, Zofran with improvement in vomiting but continues to have nausea. - GI evaluated the patient, likely gastroparesis, will need gastric emptying study as an outpatient, recommended Reglan and PPI (4) Diabetes mellitus: Qualifiers: Diabetes mellitus complication status: with other specified complication Diabetes mellitus type: type 1 Qualified Code(s): E10.69 - Type 1 diabetes mellitus with other specified complication Code(s): E11.9 - Type 2 diabetes mellitus without complications Status: Acute Assessment and Plan: Patient with history of diabetes type 1 with multiple admissions for DKA - HEMOGLOBIN A1C 9.4 ON THIS ADMISSION - will have certified adapted physical educator evaluate the patient - will consult dietitian (5) Abdominal pain: Code(s): R10.9 - Unspecified abdominal pain Status: Acute Assessment and Plan: resolved, likely related to DKA (6) DVT prophylaxis: Code(s): Z29.9 - Encounter for prophylactic measures, unspecified Status: Acute Assessment and Plan: DVT prophylaxis: SCDs. stress ulcer prophylaxis: Protonix Additional Plan discussed with patient in details and updated her with her condition and plan of care. Code status; full code critical care time spent: 31 minutes Subjective Interval history: patient seen examined this morning. Has been transitioned to long-acting insulin and sliding scale insulin overnight, denies any nausea, vomiting, abdominal pain. Denies any chest pain, shortness of breath. States she feels a little better this morning. It is not hungry. Patient is hemodynamically stable, adequate urine output. hemoglobin A1c is 9.4 this admission Review of Systems Review of Systems: All systems reviewed & are unremarkable except as noted in HPI and below Eyes: Eyes: Reports no additional eye complaints ENT: Reports system reviewed and no additional complaints, except as documented Cardiovascular: Cardiovascular: Reports no additional cardiovascular complaints Respiratory: Respiratory: Reports no additional respiratory complaints Gastrointestinal: Gastrointestinal: Reports no additional gastrointestinal complaints and Reports nausea Genitourinary: Genitourinary: Reports no additional female genitourinary complaints Musculoskeletal: Musculoskeletal: Reports no additional musculoskeletal complaints Neurologic: Reports system reviewed and no additional complaints, except as documented and Reports weakness Psychiatric: Comments: patient is not anxious or depressed when asked Endocrine: Endocrine: Reports fatigue Exam Const: General: no acute distress and uncomfortable HENMT: Mouth: Yes dry mucous membranes Eyes: General: appearance normal, both eyes and all related structures Sclera: sclerae normal Pupils: PERRL Neck: Neck: supple and no JVD Resp: Effort
--- NOTE | 2019-03-22 12:49 | WPDGIPROGNO ---
Progress Note: A&P Assessment and Plan (1) DKA (diabetic ketoacidoses): Code(s): E11.10 - Type 2 diabetes mellitus with ketoacidosis without coma Status: Acute Assessment and Plan: by primary team, switch now to insulin sq (2) Nausea and vomiting: Qualifiers: Vomiting Intractability: intractable Vomiting type: unspecified Qualified Code(s): R11.2 - Nausea with vomiting, unspecified Code(s): R11.2 - Nausea with vomiting, unspecified Status: Acute Assessment and Plan: continue with reglan, also zofran. Supportive care, ppi. Had EGD at another facility several weeks ago. (3) Abdominal pain: Qualifiers: Abdominal location: unspecified location Qualified Code(s): R10.9 - Unspecified abdominal pain Code(s): R10.9 - Unspecified abdominal pain Status: Acute Assessment and Plan: denies pain now (4) Diabetes mellitus type 1 with manifestations, uncontrolled: Code(s): E10.8 - Type 1 diabetes mellitus with unspecified complications; E10.65 - Type 1 diabetes mellitus with hyperglycemia Status: Acute Assessment and Plan: multiple admissions with DKA Subjective Interval history: she is off insulin drip, just now had episode of emesis, still not very hungry Review of Systems Review of Systems: All systems reviewed & are unremarkable except as noted in HPI and below Eyes: Eyes: Reports no additional eye complaints ENT: Reports system reviewed and no additional complaints, except as documented Cardiovascular: Cardiovascular: Reports no additional cardiovascular complaints Respiratory: Respiratory: Reports no additional respiratory complaints Gastrointestinal: Gastrointestinal: Reports nausea Genitourinary: Genitourinary: Reports no additional female genitourinary complaints Musculoskeletal: Musculoskeletal: Reports no additional musculoskeletal complaints Neurologic: Reports system reviewed and no additional complaints, except as documented and Reports weakness Psychiatric: Comments: patient is not anxious or depressed when asked Endocrine: Endocrine: Reports fatigue Exam Const: General: no acute distress and uncomfortable HENMT: Mouth: Yes dry mucous membranes Eyes: General: appearance normal, both eyes and all related structures Sclera: sclerae normal Pupils: PERRL Neck: Neck: supple and no JVD Resp: Effort & Inspection: normal respiratory effort Auscultation: clear to auscultation bilaterally Cardio: Rate: regular rate and tachycardic GI: Palpation (GI): Yes soft Auscultation: normal bowel sounds Other: non tender, non distended : Other: deferred Urinary Catheter: Urinary Catheter: urine clear Skin: General skin exam: normal color Neuro: Other: patient is awake, alert, answers to questions and follows simple commands Extrem: Other: no edema Psych: Affect: anxious affect Other: depression Objective Data Vital Signs Vital Signs: Vital Signs - 24 hr 03/21/19 14:00 03/21/19 16:00 03/21/19 18:00 Temperature 98.4 F Pulse Rate 105 H 125 H 106 H Respiratory Rate 18 16 20 Blood Pressure 123/86 165/104 H 134/86 Pulse Oximetry 99 100 99 03/21/19 20:00 03/21/19 22:00 03/22/19 00:00 Temperature 98.0 F 98.1 F 98.6 F Pulse Rate 114 H 114 H 121 H Respiratory Rate 16 16 18 Blood Pressure 131/89 108/78 141/99 H Pulse Oximetry 98 98 98 03/22/19 02:00 03/22/19 04:00 03/22/19 06:00 Temperature 98.7 F 98.6 F 98.4 F Pulse Rate 100 75 126 H Respiratory Rate 16 18 18 Blood Pressure 136/96 H 109/66 107/55 L Pulse Oximetry 98 98 97 03/22/19 08:00 03/22/19 10:00 Temperature 98.7 F Pulse Rate 113 H 119 H Respiratory Rate 18 18 Blood Pressure 124/85 119/77 Pulse Oximetry 98 98 Intake/Output Intake/Output: Intake & Output 03/19/19 03/20/19 03/21/19 03/22/19 23:59 23:59 23:59 23:59 Intake Total 3130 5440 6100 500 Output Total 1400 4700 3000 1100 Balance 7078 475 7323 -6
[2019-03-22 13:28] LABS: Glucose Point of Care 171 (65-105)
--- NOTE | 2019-03-22 15:37 | PM.IMPN ---
Progress Note: A&P Assessment and Plan (1) Diabetes mellitus type 1 with manifestations, uncontrolled: Code(s): E10.8 - Type 1 diabetes mellitus with unspecified complications; E10.65 - Type 1 diabetes mellitus with hyperglycemia Status: Acute Assessment and Plan: Patient is a 23-year-old female with a history of type 1 diabetes presented emergency department with a complaint of nausea and vomiting patient was started on antiemetic seen by material reclaimer was clinically stable and her nausea and vomiting had a resolve and patient was started on clear liquid, this morning I was called assess the patient patient appeared quite somnolent but denies any abdominal pain nausea or vomiting fever or chills denies any dysuria or frequency of urination, her white count were elevated I started the patient on Rocephin ordered blood culture, urine and chest x-ray ordered. Pt treated for DKA in icu stable to dischage out today hopeful discharge tomorrow (2) Nausea and vomiting: Qualifiers: Vomiting Intractability: intractable Vomiting type: unspecified Qualified Code(s): R11.2 - Nausea with vomiting, unspecified Code(s): R11.2 - Nausea with vomiting, unspecified Status: Acute Assessment and Plan: plan is above Subjective Interval history: PT seen earlier today by material reclaimer pt admitted for intractable nausea and vomiting, history of diabetes type 1 pt has history of several admissions with DKA, and gastroparesis. Unfortunately pt developed DKA was in ICU is stable to transfer out today Review of Systems Constitutional: Constitutional: Reports as per HPI Exam Narrative: Exam Narrative: Patient is awake alert havig some nausea Resp: Effort & Inspection: normal respiratory effort Auscultation: clear to auscultation bilaterally Cardio: Rate: regular rate Rhythm: regular rhythm GI: Palpation (GI): Yes soft Auscultation: normal bowel sounds Neuro: Speech: normal speech Extrem: General: normal to inspection Objective Data Vital Signs Vital Signs: Vital Signs - 24 hr 03/21/19 16:00 03/21/19 18:00 03/21/19 20:00 Temperature 36.9 C 36.7 C Pulse Rate 125 H 106 H 114 H Respiratory Rate 16 20 16 Blood Pressure 165/104 H 134/86 131/89 Pulse Oximetry 100 99 98 03/21/19 22:00 03/22/19 00:00 03/22/19 02:00 Temperature 36.7 C 37.0 C 37.1 C Pulse Rate 114 H 121 H 100 Respiratory Rate 16 18 16 Blood Pressure 108/78 141/99 H 136/96 H Pulse Oximetry 98 98 98 03/22/19 04:00 03/22/19 06:00 03/22/19 08:00 Temperature 37.0 C 36.9 C 37.1 C Pulse Rate 75 126 H 113 H Respiratory Rate 18 18 18 Blood Pressure 109/66 107/55 L 124/85 Pulse Oximetry 98 97 98 03/22/19 10:00 03/22/19 12:00 Temperature 36.9 C Pulse Rate 119 H 131 H Respiratory Rate 18 98 H Blood Pressure 119/77 135/92 H Pulse Oximetry 98 16 L Intake/Output Intake/Output: Intake & Output 03/19/19 03/20/19 03/21/19 03/22/19 23:59 23:59 23:59 23:59 Intake Total 3130 5440 6100 500 Output Total 1400 4700 3000 1100 Balance 3323 990 2196 -600 Meds/Results Medications: Active Medications Generic Name Dose Route Start Last Admin Trade Name Freq PRN Reason Stop Dose Admin Dextrose 12.5 gm 03/19/19 03:05 03/22/19 06:57 Dextrose 50% Syringe IV PUSH 12.5 gm PRN PRN Administration Hypoglycemia Protocol Glucagon 1 mg 03/19/19 03:05 Glucagon For Inj IM PRN PRN Hypoglycemia Protocol Glucose 15 gm 03/19/19 03:05 Glutose 15 PO PRN PRN Hypoglycemia Protocol Dextrose 1,000 mls @ 100 mls/hr 03/19/19 03:05 Dextrose 5% 1,000 Ml IVPB PRN PRN Hypoglycemia Protocol Ceftriaxone Sodium/Dextrose 1 gm in 50 mls @ 100 mls/hr 03/20/19 10:05 03/22/19 09:30 Rocephin 1 Gm/D5w 50 Ml IVPB Infused QAM BOB Infusion Insulin Aspart 2 - 5 units 03/19/19 08:00 03/22/19 13:23 Novolog SUB-Q Not Given [facility]ID[facility] Protocol Insulin Gl
[2019-03-22 16:15] LABS: Glucose Point of Care 218 (65-105)
[2019-03-22] MEDS: INSULIN ASPART (*BKC) 100 UNITS/ML SUB-Q (17:19)
--- NOTE | 2019-03-22 17:29 | PC.NURSE ---
This patient, Karina Fuchs, was transferred to [facility] on 03/22/19 at 1729. Personal belongings sent with patient. Report given to MARY Zafar. Appropriate documentation sent with patient.
[2019-03-22] MEDS: INSULIN GLARGINE (*BKC) 100 UNITS/ML 20 UNITS SUB-Q (20:30)
[2019-03-22 21:09] LABS: Glucose Point of Care 235 (65-105)
[2019-03-23 06:00] VITALS: BP 116/74; PULSE 121; RESP 18; TEMP 36.1; O2SAT 100
[2019-03-23] MEDS: PANTOPRAZOLE 40 MG TABLET PO (09:13)
[2019-03-23] MEDS: INSULIN ASPART (*BKC) 100 UNITS/ML SUB-Q ×2 (09:14→13:15)
[2019-03-23 10:21] LABS: Glucose Point of Care 251 (65-105)
--- NOTE | 2019-03-23 12:50 | PM.DS ---
DS: Diagnosis Admitting Diagnosis Admitting Diagnosis: Nausea with vomiting, unspecified Discharge Diagnosis (1) Diabetes mellitus type 1 with manifestations, uncontrolled: Code(s): E10.8 - Type 1 diabetes mellitus with unspecified complications; E10.65 - Type 1 diabetes mellitus with hyperglycemia Status: Acute Assessment and Plan: Patient is a 23-year-old female with a history of type 1 diabetes presented emergency department with a complaint of nausea and vomiting patient was started on antiemetic seen by plant health manager was clinically stable and her nausea and vomiting had a resolve and patient was started on clear liquid, this morning I was called assess the patient patient appeared quite somnolent but denies any abdominal pain nausea or vomiting fever or chills denies any dysuria or frequency of urination, her white count were elevated. Pt started on Rocephin ordered blood culture, urine and chest x-ray ordered. Elevated WCC may be secondary to stress of DKA and nausea. Pt went into DKA, Pt treated for DKA in icu transfered to medical floor yesterday, stable to dischage today. Pt to follow with her vocational technical education teacher in [place]. (2) Nausea and vomiting: Qualifiers: Vomiting Intractability: intractable Vomiting type: unspecified Qualified Code(s): R11.2 - Nausea with vomiting, unspecified Code(s): R11.2 - Nausea with vomiting, unspecified Status: Acute Assessment and Plan: Plan is above, pt is found to have gastroparesis and ulcers. Pt seen by Gi here pt to continue on reglan and PPI. Pt appears much better tolerating a diet prior to discharge. Lantus insulin increased to 20 units at night. Pt to follow with GI DR Gorman for ulcers and gastroparesis. DS: Summary Time Spent with Patient Time attestation: Total time spent providing and/or coordinating discharge services:40 minutes on day of discharge Exam Narrative: Exam Narrative: Patient is awake alert Const: General: comfortable and no acute distress Other: Patient is awake alert HENMT: General nose exam: nares normal Mouth: Yes moist mucous membranes Other: Patient is awake alert Resp: Effort & Inspection: normal respiratory effort Auscultation: clear to auscultation bilaterally Cardio: Rate: regular rate Rhythm: regular rhythm Skin: General skin exam: normal color and no rashes or lesions noted Neuro: Speech: normal speech Psych: Affect: normal affect DS: Data Data Completed and Pending Labs on day of discharge: Labs from last 24 hours 03/23/19 03/22/19 03/22/19 09:10 20:28 16:11 POC Capillary Glucose 251 H 235 H 218 H 03/22/19 13:23 POC Capillary Glucose 171 H Preliminary micro results at discharge 03/20/19 10:20 Blood Culture - Preliminary Blood 03/20/19 10:24 Blood Culture - Preliminary Blood Discharge Plan Discharge Attending physician on discharge: Kalie Rodriguez Consulting providers: Jaspreet Miles Discharging Clinician: Kalie Rodriguez Anticipated Discharge Date/Time: 03/23/19 12:45 Patient Disposition: Home, Self-Care Activity: as tolerated Diet: diabetic Wound Care Instructions: follow printed instructions Patient Instructions: Antibiotic Form Stand Alone Forms: General Discharge Information Follow-up/Referrals: Jaspreet Miles MD [Physician] - Discharge Medications: New metoclopramide HCl 5 mg/5 mL Solution 10 mg PO TIDAC 30 Days Qty: 900 RF: 0 pantoprazole 40 mg Tablet,Delayed Release (Dr/Ec) 40 mg PO QAM 30 Days Qty: 30 RF: 0 Lantus U-100 Insulin 100 unit/mL Solution 20 units subcut HS 90 Days Qty: 18 RF: 0 Continued insulin lispro [Admelog U-100 Insulin lispro] 100 unit/mL solution See Protocol sliding scale dose subcut ACHS RF: 0 Discontinued Basaglar KwikPen U-100 Insulin 100 unit/mL (3 mL) insulin pen 10 unit SUBCUT HS RF: 0 Date of admission:
[2019-03-23 13:17] LABS: Hematocrit 46.1 % (37.0-47.0); Hemoglobin 15.8 g/dL (12.0-15.0); Mean Corpuscular HGB Conc 34.3 g/dl (32-36); Mean Corpuscular Hemoglobin 28.7 pg (26-34); Mean Corpuscular Volume 83.8 fl (80-100); Mean Platelet Volume 9.1 fl (7.4-10.4); Platelet Count Result 482 k/mm3 (150-375); Red Cell Distribution Width 13.3 % (11.5-14.5); White Blood Count 7.7 K/mm3 (4.5-10.0)
--- NOTE | 2019-03-23 13:49 | PCDIET ---
Nutrition Consult for DM education complete. Pt current nutrition is full liquid Nutrition recommendation: Agree Last recorded weight is 61.1 kg. Bowel Motility:n/a Labs Reviewed: A1c 9.4 Meds Noted: insulin, reglan Additional Notes: Pt declined education regarding DM. Answered only with yes/no, limited discussion. Handouts with DM meal plans and diet instruction left at bedside along with contact info. I did encourage smaller more frequent meals, limited in fat and fiber due to gastroparesis. Pt denies n/v at this time. We will continue to monitor labs, po intake, and f/u with questions regarding handouts every five days.
[2019-03-23 13:51] LABS: Glucose Point of Care 231 (65-105)
== END 2019-03-23 15:40 | disposition home or self-care (01) | DRG 420 ==
LOC: ANHED 23:20 → ANH2MED 03-19 00:48 → ANHICU 03-20 19:17 → ANH2MED 03-23 12:50 → ANHICU 03-28 14:33
PROVIDERS: Family Medicine; Internal Medicine; Physician Assistant; Admitting Provider Internal Medicine; Emergency Provider Emergency Medicine; Visit Provider Family Medicine
DX: E10.10 Type 1 diabetes mellitus with ketoacidosis without coma (principal); E10.43 Type 1 diabetes mellitus with diabetic autonomic (poly)neuropathy; K31.84 Gastroparesis; E86.0 Dehydration
CPT/HCPCS: 36415; 71045; 80048; 80053; 81001; 81025; 82010; 82947; 83036; 83605; 83735; 84100; 85025; 85027; 87040; 87081; 87185; 96361; 96365; 96366; 96367; 96368; 96374; 96375; 96376; 99285; A9270; G0378; G0379; J0696; J1815; J2405; J2550; J3475; J3480; J7030; J7120

== ENCOUNTER 2020-04-18 19:56 | Inpatient (IN) | payer OTHER, SELFPAY ==
--- NOTE | ~2020-04-18 | US_ITS ---
EXAMINATION: US OB <= 14 weeks fetus DATE: 04/19/2020 07:02 INDICATION: Nausea and vomiting. TECHNIQUE: Real-time transabdominal pelvic ultrasound was performed. COMPARISON: None. FINDINGS: The uterus measures 10.2 x 5.5 x 5.9 cm. There is an intrauterine gestational sac with mean diameter of 3.1 cm. A yolk sac is identified. There is a possible pole with crown rump length diane sures 8 mm, which correlates with an estimated gestational age of 6 weeks and 5 day(s) (+/-) 4 day(s) . heart motion is not identified. The ovaries are not visualized. There is no free fluid in the pelvis. IMPRESSION: 1. Failed . Reviewed, dictated and finalized at location A. CTOR OUTCOMES IMPRESSION: 1. Failed .
[2020-04-18 19:58] VITALS: BP 159/95; PULSE 142; RESP 20; TEMP 36.3; O2SAT 100
[2020-04-18 20:21] LABS: Glucose Point of Care 331 (65-105)
--- NOTE | 2020-04-18 20:28 | ED.RECABL ---
HPI - Recheck/Abnormal Lab/Rx General Chief Complaint: Recheck/Abnormal Lab/Rx <Kita Price PA-C - Last Filed: 04/19/20 02:14> Stated Complaint: DKA <Kita Price PA-C - Last Filed: 04/19/20 02:14> Time Seen by Provider: 04/18/20 20:06 <ALPESH Tyler Last Filed: 04/19/20 02:14> Source: patient <Kita Price PA-C - Last Filed: 04/19/20 02:14> Mode of arrival: ambulatory <ALPESH Tyler Last Filed: 04/19/20 02:14> Limitations: no limitations <Kita Price PA-C - Last Filed: 04/19/20 02:14> History of Present Illness HPI narrative: This is a 24 year old female that presents to the ER for nausea and vomiting today. Reports history of Type 1 DM and that her blood sugars have been in the 200s the last couple of days. Reports she has been taking her insulin. She does not currently have a PCP though. She was recently admitted to another hospital for DKA. Denies fever, cough, abdominal pain, or dysuria. <ALPESH Tyler Last Filed: 04/19/20 02:14> Related Data Home Medications: Home Medications Medication Instructions Recorded Confirmed insulin lispro [Admelog U-100 See Protocol SUBCUT [facility] 03/19/19 04/06/19 Insulin lispro] <ALPESH Tyler Last Filed: 04/19/20 02:14> Allergies/Adverse Reactions: Allergies Allergy/AdvReac Type Severity Reaction Status Date / Time No Known Allergies Allergy Unknown Verified 03/18/19 19:18 <ALPESH Tyler Last Filed: 04/19/20 02:14> Review of Systems Review of Systems: Narrative: CONSTITUTIONAL: Denies fever GASTROINTESTINAL: Reports nausea and vomiting. Denies abdominal pain GENITOURINARY: Denies dysuria <ALPESH Tyler Last Filed: 04/19/20 02:14> All systems reviewed & are unremarkable except as noted in HPI and below <Kita Price PA-C - Last Filed: 04/19/20 02:14> PMFSH Past Medical History Medical History: Medical History (Updated 04/19/20 @ 01:48 by Kita Price PA-C) Abdominal pain Chronic abdominal pain Anxiety Dehydration Diabetes mellitus type 1 with manifestations, uncontrolled DKA (diabetic ketoacidoses) DVT prophylaxis Finger fracture Gastric ulcer On recent EGD at [facility] Hypomagnesemia UTI (urinary tract infection) <Kita Price PA-C - Last Filed: 04/19/20 02:14> Surgical History Surgical History: Surgical History (Updated 04/06/19 @ 04:43 by Winter Pickering DO) Hx of section 2017 Hx of cholecystectomy Hx of tonsillectomy <Kita Price PA-C - Last Filed: 04/19/20 02:14> Family History Family History: Family History (Updated 04/06/19 @ 04:45 by Winter Pickering DO) Mother Family history of anemia Father Unknown family medical history Other Family history of arthritis Family history of hepatitis Family history of liver disease <Kita Price PA-C - Last Filed: 04/19/20 02:14> Social History Social History: Social History (Updated 04/06/19 @ 04:45 by Winter Pickering DO) Social History: The patient lives in [facility] with her grandmother, grandfather and daughter. 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 Bhakta in [facility]. She does not drink alcohol or use illicit substances. She is a lifelong nonsmoker. Code status is full code. Primary care provider is KEANU Torres Smoking status: Never smoker Alcohol intake: current Substance use: never Substance use type: does not use Gender identity (if verbalized by the patient): Female Spiritual care concerns: No Agree to blood products: Yes <Kita Price PA-C - Last Filed: 04/19/20 02:14> Exam Narrative: Exam Narrative: GENERAL: Well-appearing, well-nourished, and in no acute distress. HEAD: Normocephalic, atraumatic. EYES: EOMI. ENT: Mucous membranes moist. Oropharynx without tonsillar hypertrophy exudate or other lesions. NECK: Supple. No adenopathy or
[2020-04-18 20:35] LABS: Alveolar/Arterial O2 Gradient 11.8 mmHg; Carboxyhemoglobin 0.6 % THb (0-2.0); Fractional Inspired Oxygen 21 %; HCO3 ABG 19.8 mEq/l (22.0-26.0); Methemoglobin ABG 0.4 %THb (0-1.5); Oxygen Content ABG 18.9 %vol (16.0-22.0); Oxyhemoglobin 96.7 % THb (90.0-100.0); PCO2 ABG 29.3 mmHg (35.0-45.0); PO2 ABG 102.8 mmHg (80.0-100.0); Reduced Hemoglobin 2.3 %THb (0-5.0); Total Hemoglobin 13.8 g/dL (12.0-18.0); pH ABG 7.447 (7.350-7.450)
[2020-04-18 20:36] LABS: Modified Allen's Test Pass; Site Drawn RIGHT RADIAL
[2020-04-18 21:28] LABS: Basophils Absolute Auto 0.1 K/mm3 (0.0-0.1); Basophils Percent Auto 0.3 % (0.2-1.2); Hematocrit 40.6 % (37.0-47.0); Hemoglobin 13.6 g/dL (12.0-15.0); Immature Granulocyte Absolute 0.16 K/mm3 (0.00-0.031); Lymphocytes Absolute Auto 1.06 K/mm3 (0.9-3.2); Lymphocytes Percent Auto 6.6 % (18.3-44.2); Mean Corpuscular HGB Conc 33.5 g/dl (32-36); Mean Corpuscular Hemoglobin 29.9 pg (26-34); Mean Corpuscular Volume 89.2 fl (80-100); Mean Platelet Volume 8.8 fl (7.4-10.4); Monocytes Absolute Auto 0.5 K/mm3 (0.1-0.6); Monocytes Percent Auto 3.3 % (2.6-8.5); Neutrophils Absolute Auto 14.3 K/mm3 (1.3-6.7); Neutrophils Percent Auto 88.8 % (45.5-73.1); Platelet Count Result 444 k/mm3 (150-375); Red Blood Count 4.55 M/mm3 (4.2-5.4); Red Cell Distribution Width 13.9 % (11.5-14.5); White Blood Count 16.2 K/mm3 (4.5-10.0)
[2020-04-18] MEDS: SODIUM CHLORIDE 0.9% IV 1,000 ML 999 ML IV CONT ×2 (21:30→22:05)
[2020-04-18] MEDS: INSULIN HUMAN REGULAR (*BKC) 100 UNITS/ML 7 UNITS IV PUSH (21:30)
[2020-04-18 21:34] VITALS: BP 132/68; PULSE 130; RESP 16; O2SAT 98
[2020-04-18 21:41] LABS: Alanine Aminotransferase 14 U/L (4-35); Albumin Level 4.2 g/dL (3.5-5.1); Alkaline Phosphatase 104 U/L (38-126); Anion Gap 12 mmol/L (8-16); Aspartate Amino Transferase 19 U/L (14-36); Bilirubin,Total 0.8 mg/dL (0.2-1.3); Blood Urea Nitrogen 7 mg/dL (7-17); Calcium 9.7 mg/dL (8.4-10.2); Carbon Dioxide 21 mmol/L (22-30); Chloride 98 mmol/L (98-107); Estimated CRCL calculation 205 ml/min; Estimated Glomerular Filt Rate > 60; Glucose 326 mg/dL (65-105); Lipase 27 U/L (23-300); Magnesium 1.7 mg/dL (1.6-2.3); Phosphorus 3.6 mg/dL (2.5-4.5); Potassium 4.3 mmol/L (3.4-5.0); Sodium 131 mmol/L (137-145)
[2020-04-18 21:43] LABS: Hemoglobin A1C 6.1 % (<5.7)
[2020-04-18 21:45] LABS: Beta-Hydroxybutyrate/Acetoacetate 2.95 mmol/L (0.02-0.27)
[2020-04-18 21:50] LABS: Add Urine Microscopic? YES; Appearance Urine Clear (Clear); Bacteria Urine Trace /hpf; Bilirubin Urine Negative (Negative); Blood Urine Negative (Negative); Color Urine Straw (Yellow); Glucose Urine UA 3+ mg/dL (Negative); Ketones Urine 2+ mg/dL (Negative); Leukocyte Esterase Ur Negative LEU/UL (Negative); Mucus Urine Rare /lpf; Nitrate Urine Negative (Negative); Protein Urine Negative (Negative); RBC Urine 0-2 /hpf (0-2); Squamous Epithelial Cell Urine Many /hpf (Few); Urobilinogen Urine Negative mg/dL (<2.0)
[2020-04-18 22:33] LABS: Glucose Point of Care 273 (65-105)
[2020-04-19] VITALS (19 sets, daily range): BP systolic 99–141; BP diastolic 51–76; PULSE 88–147; RESP 12–22; TEMP 35.9–37; O2SAT 94–100; BMI 28.0
[2020-04-19] MEDS: SODIUM CHLORIDE 0.9% IV 1,000 ML 999 ML IV CONT ×3 (00:06→12:45)
[2020-04-19 00:10] LABS: Glucose Point of Care 304 (65-105)
--- NOTE | 2020-04-19 00:27 | PC.NURSE ---
This nurse was called by pt's mother who notified this nurse that the pt is currently with a fetus that has no heartbeat. Pt's mother reported that the pt was suppose to have a dnc tomorrow but it was cancelled due to wrong paperwork.
--- NOTE | 2020-04-19 06:01 | ADMGEN ---
This patient, Karina Fuchs, was admitted to IMU Room 206-01 AT 0600. Patient/family oriented to hospital policies and general routines including ID bracelet, bed and alarms, visiting hours, pain management, procedures, bathroom and other care routines, personal items, smoking policy, room service/diet, and visiting hours. Information on how to activate the Rapid Response Team has been discussed. Patient/Family are encouraged to report perceived risks to care and to ask questions if they do not understand what they are told or what they should do.
[2020-04-19 06:16] LABS: Glucose Point of Care 367 (65-105)
--- NOTE | 2020-04-19 06:26 | WPDCN ---
Assessment and Plan Assessment and plan (1) Missed with demise before 20 completed weeks of gestation: Code(s): O02.1 - Missed Status: Acute Assessment and Plan: patient with missed ab approx. 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 Mayfield, at time of discharge to reschedule outpatient D&C should patient begin to experience onset of spontaneous passage of products of conception, heavy vaginal bleeding, or severe pelvic pain/cramping, please contact me patient was offered visit by SHARE coordinator, however, declined support and encouragement given emergency precautions reviewed with patient Thank you for this consult. Please do not hesitate to contact me for any further questions or concerns. HPI Data of Consult Date/Time: 04/19/20 06:26 The patient is a 24-year-old LMP 01/03/20 with a known missed AB at approx. 6 weeks gestation. Per patient, she receives outside care by Dr. Mayfield in [place], [place]. Patient states that she lives in [place] and was visiting mother nearby. She states that she had an ultrasound a few weeks ago showing a missed AB measuring approximately 6 weeks gestation. States that she had a repeat ultrasound earlier this week on 04/16 confirming similar findings and was also seen by Dr. Mayfield the same day. Patient states that she was scheduled for a D&C today, 04/19, in [place] with Dr. Mayfield. The patient, however, presented to the emergency department yesterday with complaints of nausea and vomiting. She has a history of Type 1 DM and was admitted overnight for management of DKA. States that she does take insulin as instructed. Does not take any other medications and does not take vitamins. Patient denies any acute obstetrical complaints. She denies any pelvic pain, cramping, or vaginal bleeding. BHCG is 24,465. US performed overnight here at [facility] confirmed similar findings of a missed AB measuring 6w5d. Requesting Physician: Cody Chandler MD Primary Care Provider: DIGITAL LEARNING PLATFORMS MANAGER PHYSICIAN Consult Narrative Narrative: Karina Fuchs is a 24 year old female Review of Systems Review of Systems: All systems reviewed & are unremarkable except as noted in HPI and below Constitutional: Constitutional: Reports as per HPI and Reports no additional constitutional complaints Gastrointestinal: Gastrointestinal: Reports nausea and Reports vomiting Genitourinary: Genitourinary: Reports no additional female genitourinary complaints, Reports as per HPI, Denies abnormal vaginal bleeding, Denies pelvic pain and Denies vaginal discharge PMFSH Past Medical History Medical History Abdominal pain Chronic abdominal pain Anxiety Dehydration Diabetes mellitus type 1 with manifestations, uncontrolled DKA (diabetic ketoacidoses) DVT prophylaxis Finger fracture Gastric ulcer On recent EGD at [facility] Hypomagnesemia UTI (urinary tract infection) Surgical History Surgical History (Updated 04/19/20 @ 06:43 by Lu Mueller MD) Hx of section 2017 Hx of dilation and curettage 2019 following missed ab Hx of tonsillectomy Family History Family History Mother Family history of anemia Father Unknown family medical history Other Family history of arthritis Family history of hepatitis Family history of liver disease Social History Social History (Updated 04/19/20 @ 06:44 by Lu Mueller MD) Smoking status: Never smoker Alcohol intake: never Substance use: never Substance use type: does not use Gender identity (if
[2020-04-19 06:48] LABS: Hematocrit 37.6 % (37.0-47.0); Hemoglobin 12.5 g/dL (12.0-15.0); Mean Corpuscular HGB Conc 33.2 g/dl (32-36); Mean Corpuscular Hemoglobin 30.4 pg (26-34); Mean Corpuscular Volume 91.5 fl (80-100); Mean Platelet Volume 8.8 fl (7.4-10.4); Platelet Count Result 480 k/mm3 (150-375); Red Blood Count 4.11 M/mm3 (4.2-5.4); Red Cell Distribution Width 14.1 % (11.5-14.5); White Blood Count 24.5 K/mm3 (4.5-10.0)
[2020-04-19 07:01] LABS: Anion Gap 17 mmol/L (8-16); Blood Urea Nitrogen 10 mg/dL (7-17); Calcium 9.2 mg/dL (8.4-10.2); Carbon Dioxide 9 mmol/L (22-30); Chloride 105 mmol/L (98-107); Estimated CRCL calculation 156 ml/min; Estimated Glomerular Filt Rate > 60; Glucose 361 mg/dL (65-105); Potassium 5.3 mmol/L (3.4-5.0); Sodium 131 mmol/L (137-145)
[2020-04-19 07:02] LABS: Lactic Acid Reflex 2.1 mmol/L (0.7-2.1)
[2020-04-19 07:34] LABS: Band Neutrophils Percent 2 % (0-6); Lymphocytes Absolute Manual 1.47 K/mm3 (1.1-4.5); Monocytes Absolute Manual 0.24 K/mm3 (0.1-0.90); Monocytes Percent Manual 1 % (3-9); Neutrophils Absolute Manual 22.78 K/mm3 (1.7-7.2); Neutrophils Percent Manual 91 % (46-73); Total Cells Counted 100
[2020-04-19 07:35] LABS: Crenated RBC 1+ (NORMAL)
[2020-04-19 07:56] LABS: Glucose Point of Care 359 (65-105)
[2020-04-19 07:58] LABS: Platelet Estimate Adequate (Adequate)
[2020-04-19] MEDS: INSULIN ASPART (*BKC) 100 UNITS/ML SUB-Q (09:04)
[2020-04-19] MEDS: SODIUM CHLORIDE 0.9% IV 1,000 ML 125 ML IV CONT (09:04)
[2020-04-19 09:46] LABS: Reflex Lactic Acid Yes or No Add Lactic
--- NOTE | 2020-04-19 10:29 | PM.IMHP ---
H&P: HPI History of Present Illness Date/Time: 04/19/20 10:29 N/VAbdominal pain. Chief Complaint: N/V/Abdominal pain. Narrative: Karina Fuchs is a 24 year old female with PMHx significant for T1DM patient presnted to ED due to n/v/abdominal pain x 1 days, she had been recently discharge from outside facility due to been admitted to DKA. Patient also has a non viable at this time. She denies any bleeding or cramps. Was evaluated by our email producer. Patient denies any fevers, rigors, cough, sputum production chills, weight loss, no new issues overnight, no discomfort at the present time. Review of Systems Review of Systems: Narrative: Patient is a poor historian but denies any discomfort at this time. Constitutional: Comments: No fevers, no chills, no rigors. Eyes: Comments: No vision changes. ENT: Comments: no throat pain, no ear ache. Cardiovascular: Comments: no chest pain. Respiratory: Comments: No sob. Gastrointestinal: Comments: n/v/abdominal pain. Genitourinary: Comments: no bleeding. Musculoskeletal: Comments: no muscle aches or pain. Integumentary/Breasts: Comments: no rashes. Neurologic: Comments: no sensory motor deficit. Hematologic/Lymphatic: Comments: No LAP PMFSH Past Medical History Medical History Abdominal pain Chronic abdominal pain Anxiety Dehydration Diabetes mellitus type 1 with manifestations, uncontrolled DKA (diabetic ketoacidoses) DVT prophylaxis Finger fracture Gastric ulcer On recent EGD at [facility] Hypomagnesemia UTI (urinary tract infection) Surgical History Surgical History (Updated 04/19/20 @ 06:43 by Lu Mueller MD) Hx of section 2017 Hx of dilation and curettage 2019 following missed ab Hx of tonsillectomy Family History Family History Mother Family history of anemia Father Unknown family medical history Other Family history of arthritis Family history of hepatitis Family history of liver disease Social History Social History (Updated 04/19/20 @ 06:44 by Lu Mueller MD) Smoking status: Never smoker Alcohol intake: never Substance use: never Substance use type: does not use Gender identity (if verbalized by the patient): Female Spiritual care concerns: No Agree to blood products: Yes Meds Home Medications and Allergies Home Medications Medication Instructions Recorded Confirmed Type insulin lispro [Admelog U-100 See Protocol SUBCUT ACHS 03/19/19 04/19/20 History Insulin lispro] Lantus U-100 Insulin 12 units SUBCUT HS 04/19/20 04/19/20 History Allergies Allergy/AdvReac Type Severity Reaction Status Date / Time No Known Allergies Allergy Unknown Verified 03/18/19 19:18 Vital Signs Vital Signs - 24 hr 04/18/20 19:58 04/18/20 21:34 04/19/20 00:23 Temperature 97.4 F L Pulse Rate 142 H 130 H 138 H Respiratory Rate 20 16 18 Blood Pressure 159/95 H 132/68 138/76 Pulse Oximetry 100 98 99 04/19/20 01:44 04/19/20 01:53 04/19/20 06:15 Temperature 96.6 F L Pulse Rate 136 H 88 144 H Respiratory Rate 18 22 H Blood Pressure 138/72 118/63 Pulse Oximetry 98 99 04/19/20 08:00 Temperature 97.2 F L Pulse Rate 138 H Respiratory Rate 12 Blood Pressure 141/58 H Pulse Oximetry 100 Exam Narrative: Exam Narrative: Lying in bed. Const: General: comfortable, alert, awake and Physically active Nutritional Appearance: average body habitus Orientation/consciousness: patient oriented x3 Limitations: no limitations HENMT: Head: normal to inspection and normocephalic Ears: hearing grossly normal bilaterally General nose exam: Normal external nose present Face and sinus: normal facial exam Mouth: Yes Normal oral and palatal mucosa present Eyes: General: appearance normal, both eyes and all related structures Pupils: Equal, round and reactive pupils present
[2020-04-19 12:48] LABS: Glucose Point of Care 195 (65-105)
[2020-04-19 13:25] LABS: Anion Gap 17 mmol/L (8-16); Blood Urea Nitrogen 10 mg/dL (7-17); Calcium 8.8 mg/dL (8.4-10.2); Carbon Dioxide 8 mmol/L (22-30); Chloride 109 mmol/L (98-107); Estimated CRCL calculation 128 ml/min; Estimated Glomerular Filt Rate > 60; Glucose 213 mg/dL (65-105); Potassium 4.9 mmol/L (3.4-5.0); Sodium 134 mmol/L (137-145)
[2020-04-19] MEDS: KCL 20 MEQ/D5/0.45% SOD CHL 1,000 ML 150 ML IV CONT (14:13)
[2020-04-19] MEDS: INSULIN HUMAN REGULAR (*BKC) 100 UNITS in SODIUM CHLORIDE 0.9% IV 99 ML IV CONT (14:14)
[2020-04-19 14:32] LABS: Glucose Point of Care 188 (65-105)
[2020-04-19 14:52] LABS: Glucose Point of Care 198 (65-105)
--- NOTE | 2020-04-19 15:20 | WPDCNINT ---
Assessment and Plan Assessment and plan (1) DKA (diabetic ketoacidoses): Qualifiers: Diabetes mellitus complication detail: without coma Diabetes mellitus type: type 1 Qualified Code(s): E10.10 - Type 1 diabetes mellitus with ketoacidosis without coma Code(s): E11.10 - Type 2 diabetes mellitus with ketoacidosis without coma Status: Acute Assessment and Plan: Patient presented with hyperglycemia, not in DKA, overnight did not receive her long-acting insulin, this morning went into diabetic ketoacidosis with elevated anion gap and metabolic acidosis -patient was given 3 L IV fluids -started on insulin infusion per DKA protocol -hemoglobin A1c is 6.1 this admission (2) Dehydration: Code(s): E86.0 - Dehydration Status: Resolved Assessment and Plan: Adequately fluid-resuscitated (3) Missed with demise before 20 completed weeks of gestation: Code(s): O02.1 - Missed Status: Acute Assessment and Plan: Appreciate OBGYN evaluation recommendation -review their note for recommendations (4) DVT prophylaxis: Code(s): Z29.9 - Encounter for prophylactic measures, unspecified Status: Acute Assessment and Plan: SCDs Additional Plan Discussed with patient updated with her condition and plan of care. She is aware of the insulin infusion protocol as she has been through this before multiple times here at [facility] Code status: Full code Critical care time spent: 41 minutes Due to a high probability of clinically significant, life threatening deterioration, the patient required my highest level of preparedness to intervene emergently and I personally spent this critical care time directly and personally managing the patient. This critical care time included obtaining a history; examining the patient; pulse oximetry; ordering and review of studies; arranging urgent treatment with development of a management plan; evaluation of patient's response to treatment; frequent reassessment; and discussions with other providers. It was exclusive of separately billable procedures and treating other patients and teaching time. Please see Assessment and Plan section and the rest of the note for further information on patient assessment and treatment Relish Maker Consult Note Consult date: 04/19/20 Time Seen: 14:20 Reason for consult: Diabetic ketoacidosis, nausea, vomiting HPI: Karina Fuchs is a 24 year old female with past medical history of insulin-dependent type 1 diabetes, anxiety, history of DKA, gastric ulcer, UTI, chronic abdominal pain presented to the ED on 04/18/2020 with complains of nausea, vomiting, abdominal pain for 1 day. Patient was recently discharged from outside facility T to, [facility]. Patient also has a missed at this time and denies any vaginal bleeding or cramps. She was evaluated by OBGYN., cough, sputum, chills. Patient stated that her blood sugars have been in the 200s for the last few days, in the ER she did not have an anion gap, beta hydroxybutyrate was elevated. Patient was admitted to the medical floor. She did not receive a long-acting insulin in this morning patient went to [facility]. Was given 3 L of IV fluid bolus this morning. Patient started on insulin infusion per [facility] protocol along with IV fluids and was made an ICU patient Patient seen and examined, well known to me from previous admissions. Complains more of nausea and vomiting at this time a than abdominal pain which is chronic for her. Patient denies any shortness of breath, chest pain. Complains of weakness. Complains of Decreased urine output, increased thirst. Review of Systems Review of Systems: All systems reviewed & are unremarkable except as noted in HPI and below PMFSH Past Medical History Medical History Abdominal pain Chronic abdominal pain Anxiety Dehydration Diabetes mellitus
[2020-04-19 16:33] LABS: Glucose Point of Care 185 (65-105)
[2020-04-19 17:09] LABS: Glucose Point of Care 134 (65-105)
[2020-04-19 17:55] LABS: Anion Gap 7 mmol/L (8-16); Blood Urea Nitrogen 8 mg/dL (7-17); Calcium 8.5 mg/dL (8.4-10.2); Carbon Dioxide 16 mmol/L (22-30); Chloride 108 mmol/L (98-107); Estimated CRCL calculation 199 ml/min; Estimated Glomerular Filt Rate > 60; Glucose 94 mg/dL (65-105); Potassium 4.2 mmol/L (3.4-5.0); Sodium 131 mmol/L (137-145)
[2020-04-19 18:14] LABS: Glucose Point of Care 100 (65-105)
[2020-04-19] MEDS: INSULIN GLARGINE (*BKC) 100 UNITS/ML 12 UNITS SUB-Q (18:54)
[2020-04-19 19:09] LABS: Glucose Point of Care 153 (65-105)
[2020-04-19 19:56] LABS: Glucose Point of Care 217 (65-105)
[2020-04-19 21:20] LABS: Anion Gap 8 mmol/L (8-16); Blood Urea Nitrogen 7 mg/dL (7-17); Calcium 8.8 mg/dL (8.4-10.2); Carbon Dioxide 17 mmol/L (22-30); Chloride 105 mmol/L (98-107); Estimated CRCL calculation 199 ml/min; Estimated Glomerular Filt Rate > 60; Glucose 136 mg/dL (65-105); Potassium 3.9 mmol/L (3.4-5.0); Sodium 130 mmol/L (137-145)
[2020-04-19 21:21] LABS: Glucose Point of Care 112 (65-105)
[2020-04-19 21:57] LABS: Glucose Point of Care 54 (65-105)
[2020-04-19 22:46] LABS: Glucose Point of Care 151 (65-105)
[2020-04-19 23:59] LABS: Glucose Point of Care 172 (65-105)
[2020-04-20] VITALS (9 sets, daily range): BP systolic 94–114; BP diastolic 57–63; PULSE 108–129; RESP 16–21; TEMP 36.2–37.1; O2SAT 99–100
[2020-04-20 05:20] LABS: Basophils Percent Auto 0.4 % (0.2-1.2); Eosinophils Percent Auto 0.1 % (0-4.4); Hematocrit 34.2 % (37.0-47.0); Hemoglobin 10.8 g/dL (12.0-15.0); Immature Granulocyte Absolute 0.21 K/mm3 (0.00-0.031); Lymphocytes Absolute Auto 2.15 K/mm3 (0.9-3.2); Lymphocytes Percent Auto 20.6 % (18.3-44.2); Mean Corpuscular HGB Conc 31.6 g/dl (32-36); Mean Corpuscular Hemoglobin 29.8 pg (26-34); Mean Corpuscular Volume 94.2 fl (80-100); Mean Platelet Volume 9.2 fl (7.4-10.4); Monocytes Absolute Auto 0.6 K/mm3 (0.1-0.6); Monocytes Percent Auto 5.8 % (2.6-8.5); Neutrophils Absolute Auto 7.4 K/mm3 (1.3-6.7); Neutrophils Percent Auto 71.1 % (45.5-73.1); Platelet Count Result 355 k/mm3 (150-375); Red Blood Count 3.63 M/mm3 (4.2-5.4); Red Cell Distribution Width 14.1 % (11.5-14.5); White Blood Count 10.5 K/mm3 (4.5-10.0)
[2020-04-20 05:56] LABS: Alanine Aminotransferase 10 U/L (4-35); Albumin Level 3.4 g/dL (3.5-5.1); Alkaline Phosphatase 79 U/L (38-126); Anion Gap 11 mmol/L (8-16); Aspartate Amino Transferase 17 U/L (14-36); Bilirubin,Total 0.9 mg/dL (0.2-1.3); Blood Urea Nitrogen 4 mg/dL (7-17); Calcium 8.4 mg/dL (8.4-10.2); Carbon Dioxide 15 mmol/L (22-30); Chloride 102 mmol/L (98-107); Estimated CRCL calculation 200 ml/min; Estimated Glomerular Filt Rate > 60; Glucose 216 mg/dL (65-105); Magnesium 1.6 mg/dL (1.6-2.3); Phosphorus 1.7 mg/dL (2.5-4.5); Potassium 3.7 mmol/L (3.4-5.0); Sodium 128 mmol/L (137-145)
[2020-04-20 06:18] LABS: Glucose Point of Care 212 (65-105)
[2020-04-20 08:18] LABS: Glucose Point of Care 201 (65-105)
[2020-04-20] MEDS: INSULIN ASPART (*BKC) 100 UNITS/ML SUB-Q ×2 (08:50)
[2020-04-20 13:36] LABS: Glucose Point of Care 49 (65-105)
[2020-04-20 13:36] LABS: Glucose Point of Care 93 (65-105)
--- NOTE | 2020-04-20 14:07 | PC.NURSE ---
This patient, Karina Fuchs, was transferred to [facility] on 04/20/20 at 1406. Personal belongings sent with patient. Report given to Winter HERNANDEZ. Appropriate documentation sent with patient.
--- NOTE | 2020-04-20 14:10 | PC.NURSE ---
Patient received from U. Report recievd from Ml HERNANDEZ. Patient oriented to the room. Patient has no needs or concerns at this time.
--- NOTE | 2020-04-20 17:21 | PM.IMPN ---
Progress Note: A&P Assessment and Plan (1) Acute dehydration: Code(s): E86.0 - Dehydration Status: Acute Assessment and Plan: Received 2 L FLUIDS BOLUS + Push for oral intake (2) Missed with demise before 20 completed weeks of gestation: Code(s): O02.1 - Missed Status: Acute Assessment and Plan: Will follow up in the outpatient setting. (3) DKA (diabetic ketoacidoses): Qualifiers: Diabetes mellitus complication detail: without coma Diabetes mellitus type: type 1 Qualified Code(s): E10.10 - Type 1 diabetes mellitus with ketoacidosis without coma Code(s): E11.10 - Type 2 diabetes mellitus with ketoacidosis without coma Status: Acute Assessment and Plan: Resolved Continue Lantus Continue post prandreal coverage (4) Hypomagnesemia: Code(s): E83.42 - Hypomagnesemia Status: Resolved Assessment and Plan: Replace as needed (5) Abdominal pain: Qualifiers: Abdominal location: unspecified location Qualified Code(s): R10.9 - Unspecified abdominal pain Code(s): R10.9 - Unspecified abdominal pain Status: Acute Assessment and Plan: Resolved Likely secondary to DKA (6) Diabetes mellitus type 1 with manifestations, uncontrolled: Code(s): E10.8 - Type 1 diabetes mellitus with unspecified complications; E10.65 - Type 1 diabetes mellitus with hyperglycemia Status: Acute Assessment and Plan: Continue to monitor. Subjective Date/time seen: 04/20/20 17:21 Not feeling well. Review of Systems Review of Systems: Narrative: Unable to get a thorough review as patient is dry heaving. Exam Narrative: Exam Narrative: Sitting in bed. Const: General: healthy appearing, alert, awake, uncomfortable and other (Dry heaving.) Nutritional Appearance: average body habitus Orientation/consciousness: patient oriented x3 Limitations: no limitations HENMT: Head: normal to inspection and normocephalic Ears: hearing grossly normal bilaterally General nose exam: Normal external nose present Face and sinus: normal facial exam Eyes: General: appearance normal, both eyes and all related structures Pupils: Equal, round and reactive pupils present EOM: EOMs intact bilaterally Neck: Neck: no lymphadenopathy, supple and no JVD Resp: Effort & Inspection: normal respiratory effort and able to speak in complete sentences Auscultation: clear to auscultation bilaterally Cardio: Jugular venous distension: no JVD Rate: regular rate Rhythm: regular rhythm GI: Inspection: normal to inspection GI Palp: Yes Soft to palpation and Yes No hepatosplenomegaly present Skin: General skin exam: normal color Lesions: no lesions Rashes: no rashes Wounds: no wounds Neuro: General: patient oriented x3 and CN's II-XI intact bilaterally Cranial nerves: Yes CN's II-XII intact bilaterally and Yes Equal, round and reactive pupils present Cognition (Neuro): normal cognition Speech: normal speech Motor exam (neuro): 5/5 motor strength present throughout Extrem: General: normal to inspection, no joint enlargement and no pedal edema Objective Data Vital Signs Vital Signs: Vital Signs - 24 hr 04/19/20 18:00 04/19/20 18:13 04/19/20 19:26 Temperature 98.4 F 97 F L Pulse Rate 128 H 116 H 126 H Respiratory Rate 14 16 Blood Pressure 104/56 L 107/57 L Pulse Oximetry 100 100 04/19/20 20:00 04/19/20 21:57 04/19/20 22:00 Temperature 96.8 F L Pulse Rate 126 H 130 H 126 H Respiratory Rate 16 16 Blood Pressure 111/61 Pulse Oximetry 100 100 04/19/20 23:49 04/20/20 00:00 04/20/20 01:27 Temperature 97 F L Pulse Rate 122 H 123 H 118 H Respiratory Rate 16 16 Blood Pressure 110/55 L Pulse Oximetry 99 99 04/20/20 03:49 04/20/20 04:00 04/20/20 05:24 Temperature 97.1 F L Pulse Rate 118 H 129 H 123 H Respiratory Rate 16 16 Blood Pressure 114/61 Pulse Oximetry 99 99
[2020-04-20 17:50] LABS: Glucose Point of Care 182 (65-105)
[2020-04-20 21:25] LABS: Glucose Point of Care 221 (65-105)
[2020-04-20] MEDS: INSULIN GLARGINE (*BKC) 100 UNITS/ML 12 UNITS SUB-Q (22:18)
[2020-04-21 05:17] LABS: Glucose Point of Care 244 (65-105)
[2020-04-21 06:00] VITALS: BP 135/89; PULSE 117; RESP 21; TEMP 36.7; O2SAT 100
[2020-04-21 06:11] LABS: Basophils Absolute Auto 0.1 K/mm3 (0.0-0.1); Basophils Percent Auto 0.4 % (0.2-1.2); Hematocrit 36.1 % (37.0-47.0); Hemoglobin 11.8 g/dL (12.0-15.0); Immature Granulocyte Absolute 0.17 K/mm3 (0.00-0.031); Immature Granulocyte Percent A 1.5 % (0-0.5); Lymphocytes Absolute Auto 2.05 K/mm3 (0.9-3.2); Lymphocytes Percent Auto 17.7 % (18.3-44.2); Mean Corpuscular HGB Conc 32.7 g/dl (32-36); Mean Corpuscular Hemoglobin 30.3 pg (26-34); Mean Corpuscular Volume 92.6 fl (80-100); Mean Platelet Volume 9.4 fl (7.4-10.4); Monocytes Absolute Auto 0.8 K/mm3 (0.1-0.6); Monocytes Percent Auto 6.5 % (2.6-8.5); Neutrophils Absolute Auto 8.5 K/mm3 (1.3-6.7); Neutrophils Percent Auto 73.9 % (45.5-73.1); Platelet Count Result 364 k/mm3 (150-375); Red Cell Distribution Width 13.9 % (11.5-14.5); White Blood Count 11.6 K/mm3 (4.5-10.0)
[2020-04-21 06:33] LABS: Anion Gap 15 mmol/L (8-16); Blood Urea Nitrogen 7 mg/dL (7-17); Calcium 8.6 mg/dL (8.4-10.2); Carbon Dioxide 15 mmol/L (22-30); Chloride 99 mmol/L (98-107); Estimated CRCL calculation 200 ml/min; Estimated Glomerular Filt Rate > 60; Glucose 229 mg/dL (65-105); Magnesium 1.7 mg/dL (1.6-2.3); Phosphorus 2.3 mg/dL (2.5-4.5); Potassium 3.6 mmol/L (3.4-5.0); Sodium 129 mmol/L (137-145)
[2020-04-21] MEDS: INSULIN ASPART (*BKC) 100 UNITS/ML SUB-Q (08:42)
[2020-04-21 09:06] LABS: Glucose Point of Care 201 (65-105)
--- NOTE | 2020-04-21 11:54 | PM.DS ---
DS: Admitting Diagnosis Admitting Diagnosis Admitting Diagnosis: DKA Intractable nausea and vomiting Epigastric abdominal pain. DS: Discharge Diagnosis Discharge Diagnosis (1) Acute dehydration: Code(s): E86.0 - Dehydration Status: Acute Assessment and Plan: Secondary to intractable n/v Was placed on fluids. (2) Missed with demise before 20 completed weeks of gestation: Code(s): O02.1 - Missed Status: Acute Assessment and Plan: Will follow up in the outpatient setting with his Director Of Sustainability Programs. (3) DKA (diabetic ketoacidoses): Qualifiers: Diabetes mellitus complication detail: without coma Diabetes mellitus type: type 1 Qualified Code(s): E10.10 - Type 1 diabetes mellitus with ketoacidosis without coma Code(s): E11.10 - Type 2 diabetes mellitus with ketoacidosis without coma Status: Acute Assessment and Plan: Resolved placed on insulin drip. (4) Dehydration: Code(s): E86.0 - Dehydration Status: Resolved Assessment and Plan: Received iv fluids. (5) Abdominal pain: Qualifiers: Abdominal location: unspecified location Qualified Code(s): R10.9 - Unspecified abdominal pain Code(s): R10.9 - Unspecified abdominal pain Status: Acute Assessment and Plan: Secondary to DKA (6) Diabetes mellitus type 1 with manifestations, uncontrolled: Code(s): E10.8 - Type 1 diabetes mellitus with unspecified complications; E10.65 - Type 1 diabetes mellitus with hyperglycemia Status: Acute Assessment and Plan: On Lantus and post prandreal at home Re started (7) Nausea and vomiting: Qualifiers: Vomiting Intractability: non-intractable Vomiting type: unspecified Qualified Code(s): R11.2 - Nausea with vomiting, unspecified Code(s): R11.2 - Nausea with vomiting, unspecified Status: Acute Assessment and Plan: Resolved Patient tolerating po. (8) Diabetes mellitus: Qualifiers: Diabetes mellitus complication status: with other specified complication Diabetes mellitus type: type 1 Qualified Code(s): E10.69 - Type 1 diabetes mellitus with other specified complication Code(s): E11.9 - Type 2 diabetes mellitus without complications Status: Acute Assessment and Plan: Follow up in the outpatient setting. DS: Summary Hospital Course Hospital Course: Patient was admitted to IMU we obtained a consult with Int/CC. Patient was placed on NPO and insulin drip. DKA resolved Patient had some issues with intractable nausea and vomiting that resolved she was tolerating po at the time of discharge Consults obtained: Director Of Sustainability Programs/Int/cc Patient was discharged home EXAMINATION: US OB <= 14 weeks fetus DATE: 04/19/2020 07:02 INDICATION: Nausea and vomiting. TECHNIQUE: Real-time transabdominal pelvic ultrasound was performed. COMPARISON: None. FINDINGS: The uterus measures 10.2 x 5.5 x 5.9 cm. There is an intrauterine gestational sac with mean diameter of 3.1 cm. A yolk sac is identified. There is a possible pole with crown rump length measures 8 mm, which correlates with an estimated gestational age of 6 weeks and 5 day(s) (+/-) 4 day(s). heart motion is not identified. The ovaries are not visualized. There is no free fluid in the pelvis. IMPRESSION: 1. Failed . Status at Discharge Functional status at discharge: independent ambulation Overall status at discharge: patient is back to baseline Time Spent with Patient Time attestation: Total time spent providing and/or coordinating discharge services: Time spent: Greater than 30 minutes Exam Narrative: Exam Narrative: Sitting in bed. Const: General: healthy appearing, comfortable, alert, awake and Physically active Nutritional Appearance: average body habitus Limitations: no limitations HENMT: Head: normocephalic Ears: hearing grossly normal bilaterally
== END 2020-04-21 12:55 | disposition home or self-care (01) | DRG 420 ==
LOC: ANHED 04-19 03:55 → ANHIMU 04-19 08:51 → ANH2MED 04-20 14:02
PROVIDERS: Emergency Medicine; Family Medicine; Internal Medicine; Physician Assistant; Admitting Provider Internal Medicine; Emergency Provider Emergency Medicine; PCP Internal Medicine; Visit Provider Internal Medicine
DX: E10.10 Type 1 diabetes mellitus with ketoacidosis without coma (principal); O02.1 Missed abortion; E86.0 Dehydration; F41.9 Anxiety disorder, unspecified; E83.42 Hypomagnesemia; Z90.49 Acquired absence of other specified parts of digestive tract
CPT/HCPCS: 36415; 36600; 76801; 80048; 80053; 81001; 81025; 82010; 82375; 82805; 82948; 83036; 83050; 83605; 83690; 83735; 84100; 84702; 85025; 86850; 86900; 86901; 96360; 96361; 96374; 99285; J1815; J3480; J7030

== ENCOUNTER → 2022-07-28 13:57 | Outpatient (CLI) | payer BC, MEDICAID, SELFPAY ==
--- NOTE | ~2022-07-28 | US_ITS ---
EXAMINATION: US OB transvaginal DATE: 07/28/2022 14:19 INDICATION: Missed TECHNIQUE: Real-time pelvic transabdominal and transvaginal ultrasound was performed. COMPARISON: None. FINDINGS: The uterus measures 9.8 x 5.2 x 7 cm. There is an intrauterine gestational sac. A yolk sac is identified. heart motion is identified measuring 168 beats per minute (bpm) by M-mode Dopple r. The crown rump length measures 1.7 cm, which correlates with an estimated gestational age of 8 weeks and 0 day(s) (+/-) 5 day(s). The ovaries are not visualized however no adnexal abnormality is seen. There is no free fluid in the pelvis. IMPRESSION: 1. Live intrauterine with an estimated gestational age of 8 weeks and 0 day(s) (+/-) 5 day( s) and an estimated delivery date of 03/09/2023. Reviewed, dictated and finalized at location F. IMPRESSION: 1. Live intrauterine with an estimated gestational age of 8 weeks and 0 day(s) (+/-) 5 day(s) and an estimated delivery date of 03/09/2023.
== END ==
PROVIDERS: PCP Obstetrics & Gynecology Gynecology; Visit Provider Obstetrics & Gynecology Gynecology
DX: O02.1 Missed abortion (principal); Z3A.08 8 weeks gestation of pregnancy
CPT/HCPCS: 76817

== ENCOUNTER 2022-09-14 10:46 | Emergency (ER) | payer BC, SELFPAY ==
[2022-09-14 10:56] VITALS: BP 129/87; PULSE 115; RESP 16; TEMP 36.8; O2SAT 98
[2022-09-14 11:06] LABS: Basophils Absolute Auto 0.1 K/mm3 (0.0-0.1); Basophils Percent Auto 0.6 % (0.2-1.2); Eosinophils Absolute Auto 0.1 K/mm3 (0-0.3); Eosinophils Percent Auto 0.6 % (0-4.4); Hemoglobin 12.3 g/dL (12.0-15.0); Immature Granulocyte Absolute 0.16 K/mm3 (0.00-0.031); Immature Granulocyte Percent A 1.4 % (0-0.5); Lymphocytes Absolute Auto 1.77 K/mm3 (0.9-3.2); Mean Corpuscular HGB Conc 34.2 g/dl (32-36); Mean Corpuscular Volume 87.8 fl (80-100); Mean Platelet Volume 8.7 fl (7.4-10.4); Monocytes Absolute Auto 0.8 K/mm3 (0.1-0.6); Monocytes Percent Auto 7.1 % (2.6-8.5); Neutrophils Absolute Auto 8.2 K/mm3 (1.3-6.7); Neutrophils Percent Auto 74.3 % (45.5-73.1); Platelet Count Result 353 k/mm3 (150-375); Red Cell Distribution Width 13.8 % (11.5-14.5); White Blood Count 11.1 K/mm3 (4.5-10.0)
[2022-09-14] MEDS: ONDANSETRON INJ 4 MG/2 ML VIAL IV PUSH (11:09)
[2022-09-14] MEDS: SODIUM CHLORIDE 0.9% IV 1,000 ML 999 ML IV CONT ×2 (11:09→13:01)
[2022-09-14 11:16] LABS: Alanine Aminotransferase 16 U/L (6-35); Albumin Level 4.1 g/dL (3.5-5.1); Alkaline Phosphatase 71 U/L (38-126); Anion Gap 8 mmol/L (8-16); Aspartate Amino Transferase 23 U/L (14-36); Bilirubin,Total 0.3 mg/dL (0.2-1.3); Blood Urea Nitrogen 5 mg/dL (7-17); Carbon Dioxide 26 mmol/L (22-30); Chloride 102 mmol/L (98-107); Estimated CRCL calculation 210 ml/min; Estimated Glomerular Filt Rate > 60; Glucose 92 mg/dL (65-110); Potassium 3.3 mmol/L (3.4-5.0); Sodium 136 mmol/L (137-145)
[2022-09-14 11:21] LABS: Appearance Urine Cloudy (Clear); Bacteria Urine None Seen /hpf; Bilirubin Urine Negative (Negative); Blood Urine Negative (Negative); Color Urine Yellow (Yellow); Glucose Urine UA Negative (Negative); Ketones Urine Negative (Negative); Leukocyte Esterase Ur 2+ LEU/UL (Negative); Nitrate Urine Negative (Negative); Non Pathogenic Casts 0-2; Protein Urine Trace mg/dL (Negative); RBC Urine 0-2 /hpf (0-2); Specific Grav Ur 1.013 (1.001-1.035); Squamous Epithelial Cell Urine Occasional /hpf (Few); Urobilinogen Urine 0.2 mg/dL (<2.0); WBC Urine >100 /hpf
--- NOTE | 2022-09-14 11:44 | ED.GENADULT ---
HPI - General Adult General Chief complaint: Nausea/Vomiting/Diarrhea Stated complaint: n/v, T1DM, 15 weeks Time Seen by Provider: 09/14/22 10:55 History of Present Illness HPI narrative: 27-year-old female presented the emergency department for evaluation of nausea vomiting. Patient states that the symptoms started this morning. Patient reports she is 15 weeks and does have follow-up with Dr. Velazquez. Patient has had an ultrasound with this . Patient denies any vaginal bleeding vaginal discharge and denies any urinary symptoms This is the patient's fifth and patient has had only 1 go full-term., Patient had 3 miscarriages. Related Data Home Medications Medication Instructions Recorded Confirmed insulin lispro 100 unit/mL See Protocol subcut ACHS 03/19/19 04/19/20 subcutaneous solution (Admelog U-100 Insulin lispro) insulin glargine 100 unit/mL 12 units subcut HS 04/19/20 04/19/20 subcutaneous solution (Lantus U-100 Insulin) Allergies Allergy/AdvReac Type Severity Reaction Status Date / Time No Known Allergies Allergy Unknown Verified 09/14/22 11:01 Review of Systems Review of Systems: All systems reviewed & are unremarkable except as noted in HPI and below PMFSH Past Medical History Medical History (Updated 09/14/22 @ 13:16 by Parminder Walsh MD) Abdominal pain Chronic abdominal pain Anxiety Dehydration Diabetes mellitus type 1 with manifestations, uncontrolled DKA (diabetic ketoacidoses) DVT prophylaxis Finger fracture Gastric ulcer On recent EGD at [facility] Hypomagnesemia UTI (urinary tract infection) Surgical History Surgical History (Updated 04/19/20 @ 06:43 by Lu Mueller MD) Hx of section 2017 Hx of dilation and curettage 2019 following missed ab Hx of tonsillectomy Family History Family History Mother Family history of anemia Father Unknown family medical history Other Family history of arthritis Family history of hepatitis Family history of liver disease Social History Social History (Updated 04/19/20 @ 06:44 by Lu Mueller MD) Smoking status: Never smoker Alcohol intake: never Substance use: never Substance use type: does not use Gender identity (if verbalized by the patient): Female Spiritual care concerns: No Agree to blood products: Yes Exam Narrative: APPEARANCE: Well appearing, no pain, no distress, well-nourished. HEAD: normocephalic, atraumatic. EYES: PERRLA/EOMI, conjunctivae clear. NOSE: Normal no drainage. NECK: Supple. No adenopathy, no masses. RESPIRATORY: Airway patent, respirations nonlabored. Clear to auscultation bilaterally, no rales, rhonchi, wheezing. CARDIOVASCULAR: Regular rate and rhythm without murmurs rubs or gallops. ABDOMINAL: Soft, nontender, nondistended, normal bowel sounds MUSCULOSKELETAL: Moves all extremities. Strength/ROM intact, No edema, No calf tenderness. NEURO: Alert. Cranial nerves II through XII intact. Grossly intact SKIN: Warm, dry. Normal Color Course Course Emergency Course: 27-year-old female that is 15 weeks presented to the ED for evaluation of nausea vomiting. Patient was treated with Zofran and IV fluids. Patient does feel improved with treatment. Patient's UA does show leukoesterase and greater than 100 whites. Patient denies any urinary symptoms. Urine culture was pending and patient was started on Macrobid. Patient continued to have persistent nausea vomiting in the ED. Patient was treated with IV fluids. Patient was offered multiple medications for nausea control but patient declined medications for nausea control stating they would not work. Ultimately patient preferred to be discharged to home since she was declining all intervention. Patient was encouraged of close follow-up with [employer] [facility]ICE PRESIDENT. Patient was also encouraged to return
[2022-09-14] MEDS: NITROFURANTOIN MONOHYD MACROCR 100 MG CAP PO (11:47)
[2022-09-14 11:50] VITALS: BP 128/81; PULSE 105; RESP 14; O2SAT 100
[2022-09-14 12:19] LABS: Add Urine Microscopic? YES
[2022-09-14 13:00] VITALS: BP 117/77; PULSE 100; RESP 16; O2SAT 98
--- NOTE | 2022-09-14 13:40 | PC.NURSE ---
Patient refusing zofran at this time.
--- NOTE | 2022-09-14 14:22 | PC.NURSE ---
pt vomitted x1, refusing zofran, edp aware
[2022-09-14 14:42] VITALS: BP 148/93; PULSE 98; RESP 16; O2SAT 99
== END 2022-09-14 14:44 | disposition home or self-care (01) ==
PROVIDERS: Emergency Provider Emergency Medicine; PCP Obstetrics & Gynecology Gynecology
DX: O21.0 Mild hyperemesis gravidarum (principal); Z3A.15 15 weeks gestation of pregnancy
CPT/HCPCS: 36415; 80053; 81001; 85025; 87077; 87086; 87186; 96361; 96374; 99284; A9270; J2405; J7030

== ENCOUNTER 2022-09-29 08:21 | Observation (INO) | payer BC, SELFPAY ==
[2022-09-29] VITALS (31 sets, daily range): BP systolic 98–171; BP diastolic 44–99; PULSE 95–139; RESP 18–22; TEMP 36.3–36.6; O2SAT 92–100; BMI 34.9
--- NOTE | 2022-09-29 08:57 | ED.NAVMDI ---
HPI - Nausea/Vomiting/Diarrhea General Chief complaint: Nausea/Vomiting/Diarrhea Stated complaint: n/v Time Seen by Provider: 09/29/22 08:22 Source: patient and RN notes reviewed Mode of arrival: ambulatory Limitations: no limitations History of Present Illness HPI Narrative: This is a 27 year old female with history of type 1 DM who is GA 17 weeks and she is here for evaluation of nausea. Patient states this morning she has nausea and dry heaves. She took reglan prior to arrival but she is still nauseated. She denies vomiting but she does report diarrhea yesterday. She denies any abdominal pain, cramping, or vaginal bleeding. Her OBGYN is Dr. Velazquez. Her blood sugar this morning is 150. Related Data Home Medications Medication Instructions Recorded Confirmed insulin pump cartridge 09/29/22 09/29/22 metoclopramide HCl 10 mg tablet 10 mg PO Q6H PRN Nausea And 09/29/22 09/29/22 Vomiting Allergies Allergy/AdvReac Type Severity Reaction Status Date / Time No Known Allergies Allergy Unknown Verified 09/29/22 08:32 Review of Systems Constitutional: Constitutional: Denies weakness Cardiovascular: Cardiovascular: Denies syncope, Denies rapid heart rate, Denies irregular heart rhythm, Denies leg edema and Denies dyspnea Respiratory: Respiratory: Denies chest congestion, Denies hemoptysis, Denies excessive phlegm production and Denies dyspnea Gastrointestinal: Gastrointestinal: Denies abdominal pain, Denies hematochezia, Denies diarrhea, Reports nausea and Denies vomiting Genitourinary: Genitourinary: Denies hematuria and Denies dysuria Musculoskeletal: Musculoskeletal: Denies joint swelling, Denies loss of height and Denies muscle weakness Neurologic: Denies syncope, Denies focal weakness and Denies weakness [facility] Past Medical History Medical History (Updated 09/30/22 @ 11:58 by Delia Tompkins CNM) Abdominal pain Chronic abdominal pain Anxiety Dehydration Diabetes mellitus type 1 with manifestations, uncontrolled DKA (diabetic ketoacidoses) DVT prophylaxis Finger fracture Gastric ulcer On recent EGD at [facility] Hypomagnesemia UTI (urinary tract infection) Surgical History Surgical History (Updated 04/19/20 @ 06:43 by Lu Mueller MD) Hx of section 2017 Hx of dilation and curettage 2019 following missed ab Hx of tonsillectomy Family History Family History Mother Family history of anemia Father Unknown family medical history Other Family history of arthritis Family history of hepatitis Family history of liver disease Social History Social History (Updated 04/19/20 @ 06:44 by Lu Mueller MD) Smoking status: Never smoker Alcohol intake: never Substance use: never Substance use type: does not use Gender identity (if verbalized by the patient): Female Spiritual care concerns: No Agree to blood products: Yes Exam Const: General: no acute distress and alert Nutritional Appearance: well nourished Orientation/consciousness: patient oriented x3 Limitations: no limitations HENMT: Head: normal to inspection Throat: posterior oropharynx normal Eyes: EOM: EOMs intact bilaterally Chest: Chest palpation & inspection: normal inspection of the chest Resp: Effort & Inspection: normal respiratory effort Auscultation: clear to auscultation bilaterally Cardio: Rate: regular rate Rhythm: regular rhythm Heart sounds: no murmurs GI: GI Palp: Yes Soft to palpation, No Tenderness to palpation present (GI), No Guarding due to palpation present (GI) and No Rigid due to palpation Auscultation: normal bowel sounds Skin: General skin exam: normal color Rashes: no rashes Wounds: no wounds Neuro: General: patient oriented x3, moves all extremities and CN's II-XI intact bilaterally Extrem: General: normal to inspection Psych: Mental Status: mental status grossly normal Affect: no
[2022-09-29] MEDS: LACTATED RINGERS 1,000 ML 999 ML IV CONT ×3 (09:07→22:39)
[2022-09-29] MEDS: ONDANSETRON INJ 4 MG/2 ML VIAL IV PUSH ×2 (09:08→11:06)
[2022-09-29 09:21] LABS: Basophils Percent Auto 0.3 % (0.2-1.2); Eosinophils Absolute Auto 0.1 K/mm3 (0-0.3); Eosinophils Percent Auto 0.5 % (0-4.4); Hematocrit 37.2 % (37.0-47.0); Hemoglobin 12.3 g/dL (12.0-15.0); Immature Granulocyte Absolute 0.12 K/mm3 (0.00-0.031); Lymphocytes Absolute Auto 1.43 K/mm3 (0.9-3.2); Lymphocytes Percent Auto 12.2 % (18.3-44.2); Mean Corpuscular HGB Conc 33.1 g/dl (32-36); Mean Corpuscular Hemoglobin 29.4 pg (26-34); Mean Platelet Volume 9.3 fl (7.4-10.4); Monocytes Absolute Auto 0.7 K/mm3 (0.1-0.6); Monocytes Percent Auto 6.1 % (2.6-8.5); Neutrophils Absolute Auto 9.4 K/mm3 (1.3-6.7); Neutrophils Percent Auto 79.9 % (45.5-73.1); Platelet Count Result 296 k/mm3 (150-375); Red Blood Count 4.18 M/mm3 (4.2-5.4); Red Cell Distribution Width 14.2 % (11.5-14.5); White Blood Count 11.7 K/mm3 (4.5-10.0)
[2022-09-29 09:27] LABS: Alanine Aminotransferase 14 U/L (6-35); Albumin Level 4.4 g/dL (3.5-5.1); Alkaline Phosphatase 80 U/L (38-126); Anion Gap 6 mmol/L (8-16); Aspartate Amino Transferase 21 U/L (14-36); Bilirubin,Total 0.4 mg/dL (0.2-1.3); Blood Urea Nitrogen 5 mg/dL (7-17); Calcium 9.4 mg/dL (8.4-10.2); Carbon Dioxide 27 mmol/L (22-30); Chloride 100 mmol/L (98-107); Estimated CRCL calculation 165 ml/min; Estimated Glomerular Filt Rate > 60; Glucose 137 mg/dL (65-110); Magnesium 1.5 mg/dL (1.6-2.3); Potassium 3.8 mmol/L (3.4-5.0); Sodium 133 mmol/L (137-145)
[2022-09-29 09:28] LABS: Appearance Urine Clear (Clear); Bacteria Urine 3+ /hpf; Bilirubin Urine Negative (Negative); Blood Urine Negative (Negative); Color Urine Yellow (Yellow); Glucose Urine UA Negative (Negative); Ketones Urine 1+ mg/dL (Negative); Leukocyte Esterase Ur 3+ LEU/UL (Negative); Nitrate Urine Negative (Negative); Non Pathogenic Casts 0-2; Protein Urine Negative (Negative); RBC Urine 0-2 /hpf (0-2); Specific Grav Ur 1.011 (1.001-1.035); Squamous Epithelial Cell Urine None seen /hpf (Few); Urobilinogen Urine 0.2 mg/dL (<2.0); WBC Urine 51-100 /hpf
[2022-09-29 09:38] LABS: Add Urine Microscopic? YES
--- NOTE | 2022-09-29 11:34 | PC.NURSE ---
RN attempted to give pt magnesium PO but pt refused because she was still vomiting. Notified Dr. Mayer.
[2022-09-29] MEDS: SODIUM CHLORIDE 0.9% IV 50 ML 400 ML (11:42)
[2022-09-29] MEDS: PROMETHAZINE HCL 25 MG/ML AMPUL 12.5 MG IV PUSH ×3 (11:42→18:30)
[2022-09-29] MEDS: FAMOTIDINE 20 MG/2 ML VIAL IV PUSH (13:13)
[2022-09-29 13:17] LABS: Glucose Point of Care 113 mg/dl (65-105)
--- NOTE | 2022-09-29 16:44 | PC.NURSE ---
Pt arrived from ED per wheelchair with significant other at bedside. Pt arrived with small amount thick saliva like mucous in emesis bag. Pt assisted into bed. Dr. Velazquez had called with orders before pt arrived.
--- NOTE | 2022-09-29 17:00 | PC.NURSE ---
Pt lying in bed with eyes closed. Does respond to verbal stimuli. Currently rates nausea 7 out of 10 . Insulin pump site is in left side of abdomen. Informed pt that Dr. Velazquez wants her pump set for basal rate only. Pt states her basal rates change depending on the time of the day. Informed her that when she is feeling a little better I will need to enter what basal rates she is on. Pt also has a continuous glucose monitor on her left upper arm.
[2022-09-29] MEDS: DEXTROSE 5%/LACTATED RINGERS 1,000 ML 100 ML IV CONT ×2 (17:34→23:37)
[2022-09-29] MEDS: METOCLOPRAMIDE HCL INJ 10 MG/2 ML VIAL IV PUSH (17:35)
[2022-09-29 18:20] LABS: Glucose Point of Care 156 mg/dl (65-105)
--- NOTE | 2022-09-29 19:11 | PC.NURSE ---
Pt is sleeping quietly at this time. No complaints. No vomiting. Significant other at bedside and provided history. No vomiting at this time.
--- NOTE | 2022-09-29 20:00 | PC.NURSE ---
Pt continues to sleep. Wakes to voice and answers questions. Dexcome reading 196. Pt states her pump will bolus her. Dr. Velazquez notified of sugar. Orders to attempt to feed patient and bolus for carb ratio per her usual home orders.
--- NOTE | 2022-09-29 20:05 | PC.NURSE ---
Pt turned over in bed and started dry heaving with small amount of mucous when discussing food.
--- NOTE | 2022-09-29 20:10 | PC.NURSE ---
To room to discuss eating and bolus. Pt shakes head no and refuses to open eyes. Pt also refuses to sign consents for home pump therapy and and continuous monitoring. Verbal consent given at this time and pt agrees to sign when she feels better.
[2022-09-29 22:20] LABS: Appearance Urine Clear (Clear); Bacteria Urine None Seen /hpf; Bilirubin Urine Negative (Negative); Blood Urine Negative (Negative); Color Urine Yellow (Yellow); Glucose Urine UA 3+ mg/dL (Negative); Ketones Urine 4+ mg/dL (Negative); Leukocyte Esterase Ur Trace LEU/UL (NEGATIVE); Nitrate Urine Negative (Negative); Non Pathogenic Casts 0-2; Protein Urine Negative (Negative); RBC Urine 0-2 /hpf (0-2); Specific Grav Ur 1.015 (1.001-1.035); Squamous Epithelial Cell Urine None seen /hpf (Few); Urobilinogen Urine 0.2 mg/dL (<2.0); WBC Urine 21-50 /hpf (0-3)
[2022-09-29 22:21] LABS: Add Urine Microscopic? YES
--- NOTE | 2022-09-29 22:22 | PC.NURSE ---
Urine Ketones of 4+ called to Dr. Velazquez. Orders received to give 1000 LR bolus and Pt to eat and bolus on Carb ratio.
--- NOTE | 2022-09-29 22:47 | PC.NURSE ---
Pt refuses to eat. States she is not hungry. No vomiting at this time. IV infusing without difficulty/
[2022-09-29 23:13] LABS: Glucose Point of Care 146 mg/dl (65-105)
[2022-09-30] VITALS (48 sets, daily range): BP systolic 87–139; BP diastolic 46–84; PULSE 80–112; RESP 18; TEMP 36.6–36.8; O2SAT 93–100
[2022-09-30 01:22] LABS: Glucose Point of Care 146 mg/dl (65-105)
--- NOTE | 2022-09-30 02:58 | PC.NURSE ---
Addendum entered by Lucas Kohler RN 09/30/22 03:03: NOTED SHOULD BE TIMED 0000 Original Note: Pt sleeping. IV infusing without difficulty. Pt wakes to voice. Pt had episode of gagging/dry heaving with small. Amt. saliva and bile colored emesis. 50. cc. Pt refuses ordered Reglan or any nausea medication.
[2022-09-30 03:45] LABS: Appearance Urine Cloudy (Clear); Bacteria Urine None Seen /hpf; Bilirubin Urine Negative (Negative); Blood Urine Negative (Negative); Color Urine Yellow (Yellow); Glucose Urine UA 2+ mg/dL (Negative); Ketones Urine 3+ mg/dL (Negative); Leukocyte Esterase Ur Negative LEU/UL (NEGATIVE); Nitrate Urine Negative (Negative); Non Pathogenic Casts 0-2; Protein Urine Negative (Negative); RBC Urine 0-2 /hpf (0-2); Specific Grav Ur 1.012 (1.001-1.035); Squamous Epithelial Cell Urine None seen /hpf (Few); Urobilinogen Urine 0.2 mg/dL (<2.0); WBC Urine 0-5 /hpf (0-3); pH Urine 7.5 (5.0-9.0)
[2022-09-30 03:46] LABS: Glucose Point of Care 134 mg/dl (65-105)
[2022-09-30 04:16] LABS: Add Urine Microscopic? NO
[2022-09-30 06:34] LABS: Anion Gap 4 mmol/L (8-16); Blood Urea Nitrogen 3 mg/dL (7-17); Carbon Dioxide 24 mmol/L (22-30); Chloride 101 mmol/L (98-107); Estimated CRCL calculation 217 ml/min; Estimated Glomerular Filt Rate > 60; Glucose 128 mg/dL (65-110); Potassium 3.3 mmol/L (3.4-5.0); Sodium 129 mmol/L (137-145)
[2022-09-30 07:39] LABS: Glucose Point of Care 130 mg/dl (65-105)
[2022-09-30] MEDS: POTASSIUM CHLORIDE INJ 40 MEQ in SODIUM CHLORIDE 0.9% IV 500 ML 130 MEQ IVPB (08:13)
[2022-09-30] MEDS: PROMETHAZINE HCL 25 MG SUPP.RECT RECTAL ×2 (08:51→16:17)
[2022-09-30 08:52] LABS: Alveolar/Arterial O2 Gradient 19.5 mmHg; Base Excess ABG 0.3 mEq/l (+/-2.0); Fractional Inspired Oxygen 21 %; HCO3 ABG 23.4 mEq/l (22.0-26.0); Oxygen Content ABG 16.1 %vol (16.0-22.0); Oxygen Saturation ABG 97.4 % (95.0-100.0); Oxyhemoglobin 95.6 % THb (90.0-100.0); PO2 ABG 90.7 mmHg (80.0-100.0); PO2 FiO2 Ratio Arterial Blood 4.32 %; Total Hemoglobin 11.9 g/dL (12.0-18.0); pH ABG 7.469 (7.350-7.450)
[2022-09-30 08:55] LABS: Modified Allen's Test Pass; Site Drawn RIGHT RADIAL
[2022-09-30 09:38] LABS: Glucose Point of Care 85 mg/dl (65-105)
[2022-09-30 10:38] LABS: Glucose Point of Care 81 mg/dl (65-105)
[2022-09-30 10:40] LABS: Beta-Hydroxybutyrate/Acetoacetate 0.24 mmol/L (0.02-0.27)
[2022-09-30 11:37] LABS: Glucose Point of Care 84 mg/dl (65-105)
--- NOTE | 2022-09-30 11:50 | PM.OBPNVD ---
OB - PN: Subj Subjective Date/time seen: 09/30/22729 Interval history: Denies vomiting but reports intermittent nausea. Reports movement. Denies pain. Staff reports pt refusing to attempt anything po. Refusing Reglan and Zofran. OB - PN: Obj Data Labs 09/29/22 08:57 09/30/22 05:23 Labs: Laboratory Results - last 24 hr 09/29/22 09/29/22 09/29/22 13:12 17:40 22:10 Puncture Site ABG pH ABG pCO2 ABG pO2 ABG PO2/FiO2 Ratio ABG HCO3 ABG O2 Saturation ABG O2 Content ABG Base Excess A-a Gradient Oxyhemoglobin Total Hemoglobin O2 Delivery Device O2 Liters/Min FiO2 Sodium Potassium Chloride Carbon Dioxide Anion Gap BUN Creatinine Estim Creat Clear Calc Estimated GFR Glucose POC Capillary Glucose 113 H 156 H Calcium Beta-Hydroxybutyrate/Acetoacetate Urine Color Yellow Urine Appearance Clear Urine pH 7.0 Ur Specific Sarah Ann 1.015 Urine Protein Negative Urine Glucose (UA) 3+ H Urine Ketones 4+ H Ur Blood (Man) Negative Urine Nitrate Negative Urine Bilirubin Negative Urine Urobilinogen 0.2 Ur Leukocyte Esterase Trace H Urine RBC 0-2 Urine WBC 21-50 Ur Squamous Epith Cells None seen Urine Bacteria None seen Urine Casts 0-2 09/29/22 09/30/22 09/30/22 23:03 01:18 03:25 Puncture Site ABG pH ABG pCO2 ABG pO2 ABG PO2/FiO2 Ratio ABG HCO3 ABG O2 Saturation ABG O2 Content ABG Base Excess A-a Gradient Oxyhemoglobin Total Hemoglobin O2 Delivery Device O2 Liters/Min FiO2 Sodium Potassium Chloride Carbon Dioxide Anion Gap BUN Creatinine Estim Creat Clear Calc Estimated GFR Glucose POC Capillary Glucose 146 H 146 H 134 H Calcium Beta-Hydroxybutyrate/Acetoacetate Urine Color Urine Appearance Urine pH Ur Specific Sarah Ann Urine Protein Urine Glucose (UA) Urine Ketones Ur Blood (Man) Urine Nitrate Urine Bilirubin Urine Urobilinogen Ur Leukocyte Esterase Urine RBC Urine WBC Ur Squamous Epith Cells Urine Bacteria Urine Casts 09/30/22 09/30/22 09/30/22 03:31 05:23 07:32 Puncture Site ABG pH ABG pCO2 ABG pO2 ABG PO2/FiO2 Ratio ABG HCO3 ABG O2 Saturation ABG O2 Content ABG Base Excess A-a Gradient Oxyhemoglobin Total Hemoglobin O2 Delivery Device O2 Liters/Min FiO2 Sodium 129 L Potassium 3.3 L Chloride 101 Carbon Dioxide 24 Anion Gap 4 L BUN 3 L Creatinine 0.30 L Estim Creat Clear Calc 217 Estimated GFR > 60 Glucose 128 H POC Capillary Glucose 130 H Calcium 8.0 L Beta-Hydroxybutyrate/Acetoacetate Urine Color Yellow Urine Appearance Cloudy H Urine pH 7.5 Ur Specific Sarah Ann 1.012 Urine Protein Negative Urine Glucose (UA) 2+ H Urine Ketones 3+ H Ur Blood (Man) Negative Urine Nitrate Negative Urine Bilirubin Negative Urine Urobilinogen 0.2 Ur Leukocyte Esterase Negative Urine RBC 0-2 Urine WBC 0-5 Ur Squamous Epith Cells None seen Urine Bacteria None seen Urine Casts 0-2 09/30/22 09/30/22 09/30/22 08:32 09:34 09:54 Puncture Site Right radial ABG pH 7.469 H ABG pCO2 33.0 L ABG pO2 90.7 ABG PO2/FiO2 Ratio 4.32 ABG HCO3 23.4 ABG O2 Saturation 97.4 ABG O2 Content 16.1 ABG Base Excess 0.3 A-a Gradient 19.5 Oxyhemoglobin 95.6 Total Hemoglobin 11.9 L O2 Delivery Device Not Reportable O2 Liters/Min Not Reportable FiO2 21 Sodium Potassium Chloride Carbon Dioxide Anion Gap BUN Creatinine Estim Creat Clear Calc Estimated GFR Glucose POC Capillary Glucose 85 Calcium Beta-Hydroxybutyrate/Acetoacetate 0.24 Urine Color Urine Appearance Urine pH
[2022-09-30] MEDS: DEXTROSE 5%/0.9% SOD CHL 1,000 ML 100 ML IV CONT (12:37)
[2022-09-30 13:36] LABS: Glucose Point of Care 116 mg/dl (65-105)
--- NOTE | 2022-09-30 13:36 | PC.NURSE ---
RN at bedside to check BG level. Patient sleeping but arouses to voice. Patient denies nausea but refusing anything PO. Discussed showering/personal hygiene care at 1500 with next med administration.
--- NOTE | 2022-09-30 15:16 | PC.NURSE ---
RN at bedside with hygiene supplies. Patient up to shower. Linens changed. Patient still denying nausea and is now taking ice chips. Patient states when she feels like this, she won't usually eat for 2 days. Discussed importance of trying to eat for BG regulation as well as wellbeing. Patient verbalizes understanding.
[2022-09-30 16:21] LABS: Glucose Point of Care 142 mg/dl (65-105)
--- NOTE | 2022-09-30 16:43 | PC.NURSE ---
Spoke with Dr. Velazquez on telephone. Hospitalist to come round on patient. Per MD, if hospitalist okays it- patient can discharge when she is able to eat. Spoke with patient at bedside-patient is ordering dinner now.
[2022-09-30 18:55] LABS: Glucose Point of Care 200 mg/dl (65-105)
--- NOTE | 2022-09-30 19:41 | PC.NURSE ---
Dr. Gomez updated on PT, orders to get stat CMP, Magnesium, and Hemoglobin A1C labs. Notify when results received and will be to assess PT.
[2022-09-30 20:46] LABS: Alanine Aminotransferase 17 U/L (6-35); Albumin Level 3.3 g/dL (3.5-5.1); Alkaline Phosphatase 53 U/L (38-126); Anion Gap 4 mmol/L (8-16); Aspartate Amino Transferase 20 U/L (14-36); Bilirubin,Total 0.3 mg/dL (0.2-1.3); Blood Urea Nitrogen 4 mg/dL (7-17); Calcium 8.7 mg/dL (8.4-10.2); Carbon Dioxide 27 mmol/L (22-30); Chloride 102 mmol/L (98-107); Estimated CRCL calculation 170 ml/min; Estimated Glomerular Filt Rate > 60; Glucose 162 mg/dL (65-110); Magnesium 1.6 mg/dL (1.6-2.3); Potassium 3.6 mmol/L (3.4-5.0); Sodium 133 mmol/L (137-145)
--- NOTE | 2022-09-30 22:00 | PC.NURSE ---
Dr. Gomez at bedside. Post assessment PT has been cleared for discharge.
--- NOTE | 2022-09-30 22:09 | WPDCN ---
Assessment and Plan Assessment and plan (1) Type 1 diabetes mellitus: Code(s): E10.9 - Type 1 diabetes mellitus without complications Status: Acute (2) Hyponatremia: Code(s): E87.1 - Hypo-osmolality and hyponatremia Status: Acute (3) Nausea and vomiting during : Code(s): O21.9 - Vomiting of , unspecified Status: Acute Plan The patient has ongoing issues with nausea and vomiting throughout her . She was admitted through the emergency department yesterday with the same for hydration and symptom management. She had 3+ ketones in her urine which is likely due to her dehydration from ongoing vomiting and poor appetite due to her nausea. Glucose has remained stable, she did not have an elevated anion gap, and her beta hydroxybutyrate was well within normal limits. Her sodium was a bit low and improved with IV fluids. On review of her chart it looks like she always has a mild hyponatremia of unclear significance. At the time my evaluation she was tolerating p.o. and was no longer feeling nauseated. Labs were repeated this evening and they are reassuring and she should be okay for discharge home this evening. She has Reglan at home if needed. She is followed by maternal specialist at [facility] who has made some changes to her insulin during her . She was instructed to return if her symptoms worsen or if she has any concerns. She should follow-up with her OB and maternal specialists at the earliest interval. HPI Data of Consult Date/Time: 09/30/22 21:45 Requesting Physician: Mireya Velazquez MD Consult Narrative Reason for consult: Hyponatremia, elevated blood surgars. Narrative: This is a pleasant 27-year-old female, at 17 weeks gestation, with type 1 diabetes mellitus whom the hospitalist service has been consulted for our opinion regarding hyponatremia and elevated blood sugars. She is a type 1 diabetic and was diagnosed at the age of 12. She is on insulin pump and recently had some of her settings changed by maternal specialist at [facility]. Since she has been on the pump she has had some issues with lows but not significant hyperglycemia. Her last A1c was reportedly 6.7%. With this she has unfortunately had ongoing issues with nausea and vomiting and she was seen in the ED yesterday morning as p.o. metoclopramide taken at home was not providing her with any relief. Despite IV fluid rehydration antiemetics she continued to be unable to tolerate p.o. and she was admitted to OB for observation overnight. Her last episode of emesis was in the tree marker hours and throughout the morning and afternoon she has been hesitant to try p.o. intake. pertinent labs this morning include a sodium of 129, potassium 3.3, sodium 128, beta hydroxybutyrate 0.24. Her urine yesterday and this morning were both positive for ketones. She was started on dextrose with normal saline and she reports feeling quite a bit better. She is now tolerating p.o. and is anxious to return home. Her glucose has been stable and has not been above 200. Sodium this evening was 133 with no other significant electrolyte abnormalities. She denies fever, chills, sweats, chest pain, hematemesis, abdominal pain, epigastric pain, diarrhea, and dysuria. Review of Systems Review of Systems: Twelve systems were reviewed and are negative except for as per HPI. [facility] Past Medical History Medical History (Updated 09/30/22 @ 22:12 by Renee Gomez PA-C) Abdominal pain Chronic abdominal pain Anxiety Finger fracture Gastric ulcer On recent EGD at [facility] Type 1 diabetes mellitus Surgical History Surgical History (Updated 04/19/20 @ 06:43 by Lu Mueller MD) Hx of section 2017 Hx of dilation and curettage 2019 following missed ab Hx of tonsillectomy Family History Family History Mother Fa
--- NOTE | 2022-09-30 22:17 | PC.NURSE ---
Vladimir Tompkins [facility] notified of maternal status and visit from Dr. Gomez. Orders for discharge received.
[2022-09-30 23:08] LABS: Hemoglobin A1C 5.2 % (<5.7)
--- NOTE | 2022-10-06 07:52 | PM.OBTRLD ---
OB - Triage/Final Diagnosis Visit Information Reason for evaluation: other (Nausea and vomiting. ) Comments/Additional reasons for admission: I have assessed the risk for this patient, Karina Fuchs, and determined that she would benefit from observation care. Evaluation Laboratory results: Laboratory Tests 09/29/22 09/29/22 09/29/22 08:57 13:12 17:40 WBC 11.7 H RBC 4.18 L Hgb 12.3 Hct 37.2 MCV 89.0 MCH 29.4 MCHC 33.1 RDW 14.2 Plt Count 296 MPV 9.3 Immature Gran % (Auto) 1.0 H Neut % (Auto) 79.9 H Lymph % (Auto) 12.2 L [place] % (Auto) 6.1 Eos % (Auto) 0.5 Baso % (Auto) 0.3 Lymph # (Auto) 1.43 [place] # (Auto) 0.7 H Eos # (Auto) 0.1 Baso # (Auto) 0.0 Abs Immat Gran (auto) 0.12 H Absolute Neuts (auto) 9.4 H Absolute Nucleated RBC 0.0 Nucleated RBC % 0.0 Puncture Site ABG pH ABG pCO2 ABG pO2 ABG PO2/FiO2 Ratio ABG HCO3 ABG O2 Saturation ABG O2 Content ABG Base Excess A-a Gradient Oxyhemoglobin Total Hemoglobin O2 Delivery Device O2 Liters/Min FiO2 Sodium 133 L Potassium 3.8 Chloride 100 Carbon Dioxide 27 Anion Gap 6 L BUN 5 L Creatinine 0.40 L Estim Creat Clear Calc 165 Estimated GFR > 60 Glucose 137 H POC Capillary Glucose 113 H 156 H Hemoglobin A1c Calcium 9.4 Magnesium 1.5 L Total Bilirubin 0.4 AST 21 ALT 14 Alkaline Phosphatase 80 Total Protein 8.0 Albumin 4.4 Beta-Hydroxybutyrate/Acetoacetate Urine Color Yellow Urine Appearance Clear Urine pH 7.0 Ur Specific [place] 1.011 Urine Protein Negative Urine Glucose (UA) Negative Urine Ketones 1+ H Ur Blood (Man) Negative Urine Nitrate Negative Urine Bilirubin Negative Urine Urobilinogen 0.2 Ur Leukocyte Esterase Leukocyte Esterase Rfl 3+ H Urine RBC 0-2 Urine WBC 51-100 H Ur Squamous Epith Cells None seen Urine Bacteria 3+ H Urine Casts 0-2 09/29/22 09/29/22 09/30/22 22:10 23:03 01:18 WBC RBC Hgb Hct MCV MCH MCHC RDW Plt Count MPV Immature Gran % (Auto) Neut % (Auto) Lymph % (Auto) [place] % (Auto) Eos % (Auto) Baso % (Auto) Lymph # (Auto) [place] # (Auto) Eos # (Auto) Baso # (Auto) Abs Immat Gran (auto) Absolute Neuts (auto) Absolute Nucleated RBC Nucleated RBC % Puncture Site ABG pH ABG pCO2 ABG pO2 ABG PO2/FiO2 Ratio ABG HCO3 ABG O2 Saturation ABG O2 Content ABG Base Excess A-a Gradient Oxyhemoglobin Total Hemoglobin O2 Delivery Device O2 Liters/Min FiO2 Sodium Potassium Chloride Carbon Dioxide Anion Gap BUN Creatinine Estim Creat Clear Calc Estimated GFR Glucose POC Capillary Glucose 146 H 146 H Hemoglobin A1c Calcium Magnesium Total Bilirubin AST ALT Alkaline Phosphatase Total Protein Albumin Beta-Hydroxybutyrate/Acetoacetate Urine Color Yellow Urine Appearance Clear Urine pH 7.0 Ur Specific [place] 1.015 Urine Protein Negative Urine Glucose (UA) 3+ H Urine Ketones 4+ H Ur Blood (Man) Negative Urine Nitrate Negative Urine Bilirubin Negative Urine Urobilinogen 0.2 Ur Leukocyte Esterase Trace H Leukocyte Esterase Rfl Urine RBC 0-2 Urine WBC 21-50 Ur Squamous Epith Cells None seen Urine Bacteria None seen Urine Casts 0-2 09/30/22 09/30/22 09/30/22 03:25 03:31 05:23 WBC RBC Hgb Hct MCV MCH MCHC RDW Plt Count MPV Immature Gran % (Auto) Neut % (Auto) Lymph % (Auto) [place] % (Auto) Eos % (Auto) Baso % (Auto) Lymph # (Auto) [place] # (Auto) Eos # (Auto) Baso # (Auto) Abs Immat Gran (auto) Absolute Neuts (auto) Absolute Nucleated RBC Nucleated RBC % Punctur
--- NOTE | 2022-10-12 20:38 | PM.OBTRLD ---
OB - Triage/Final Diagnosis Visit Information Reason for evaluation: other (UTI in , N/V in ) Comments/Additional reasons for admission: I have assessed the risk for this patient, Karina Fuchs, and determined that she would benefit from observation care. Evaluation Laboratory results: Laboratory Tests 09/29/22 09/29/22 09/29/22 08:57 13:12 17:40 WBC 11.7 H RBC 4.18 L Hgb 12.3 Hct 37.2 MCV 89.0 MCH 29.4 MCHC 33.1 RDW 14.2 Plt Count 296 MPV 9.3 Immature Gran % (Auto) 1.0 H Neut % (Auto) 79.9 H Lymph % (Auto) 12.2 L [place] % (Auto) 6.1 Eos % (Auto) 0.5 Baso % (Auto) 0.3 Lymph # (Auto) 1.43 [place] # (Auto) 0.7 H Eos # (Auto) 0.1 Baso # (Auto) 0.0 Abs Immat Gran (auto) 0.12 H Absolute Neuts (auto) 9.4 H Absolute Nucleated RBC 0.0 Nucleated RBC % 0.0 Puncture Site ABG pH ABG pCO2 ABG pO2 ABG PO2/FiO2 Ratio ABG HCO3 ABG O2 Saturation ABG O2 Content ABG Base Excess A-a Gradient Oxyhemoglobin Total Hemoglobin O2 Delivery Device O2 Liters/Min FiO2 Sodium 133 L Potassium 3.8 Chloride 100 Carbon Dioxide 27 Anion Gap 6 L BUN 5 L Creatinine 0.40 L Estim Creat Clear Calc 165 Estimated GFR > 60 Glucose 137 H POC Capillary Glucose 113 H 156 H Hemoglobin A1c Calcium 9.4 Magnesium 1.5 L Total Bilirubin 0.4 AST 21 ALT 14 Alkaline Phosphatase 80 Total Protein 8.0 Albumin 4.4 Beta-Hydroxybutyrate/Acetoacetate Urine Color Yellow Urine Appearance Clear Urine pH 7.0 Ur Specific [place] 1.011 Urine Protein Negative Urine Glucose (UA) Negative Urine Ketones 1+ H Ur Blood (Man) Negative Urine Nitrate Negative Urine Bilirubin Negative Urine Urobilinogen 0.2 Ur Leukocyte Esterase Leukocyte Esterase Rfl 3+ H Urine RBC 0-2 Urine WBC 51-100 H Ur Squamous Epith Cells None seen Urine Bacteria 3+ H Urine Casts 0-2 09/29/22 09/29/22 09/30/22 22:10 23:03 01:18 WBC RBC Hgb Hct MCV MCH MCHC RDW Plt Count MPV Immature Gran % (Auto) Neut % (Auto) Lymph % (Auto) [place] % (Auto) Eos % (Auto) Baso % (Auto) Lymph # (Auto) [place] # (Auto) Eos # (Auto) Baso # (Auto) Abs Immat Gran (auto) Absolute Neuts (auto) Absolute Nucleated RBC Nucleated RBC % Puncture Site ABG pH ABG pCO2 ABG pO2 ABG PO2/FiO2 Ratio ABG HCO3 ABG O2 Saturation ABG O2 Content ABG Base Excess A-a Gradient Oxyhemoglobin Total Hemoglobin O2 Delivery Device O2 Liters/Min FiO2 Sodium Potassium Chloride Carbon Dioxide Anion Gap BUN Creatinine Estim Creat Clear Calc Estimated GFR Glucose POC Capillary Glucose 146 H 146 H Hemoglobin A1c Calcium Magnesium Total Bilirubin AST ALT Alkaline Phosphatase Total Protein Albumin Beta-Hydroxybutyrate/Acetoacetate Urine Color Yellow Urine Appearance Clear Urine pH 7.0 Ur Specific [place] 1.015 Urine Protein Negative Urine Glucose (UA) 3+ H Urine Ketones 4+ H Ur Blood (Man) Negative Urine Nitrate Negative Urine Bilirubin Negative Urine Urobilinogen 0.2 Ur Leukocyte Esterase Trace H Leukocyte Esterase Rfl Urine RBC 0-2 Urine WBC 21-50 Ur Squamous Epith Cells None seen Urine Bacteria None seen Urine Casts 0-2 09/30/22 09/30/22 09/30/22 03:25 03:31 05:23 WBC RBC Hgb Hct MCV MCH MCHC RDW Plt Count MPV Immature Gran % (Auto) Neut % (Auto) Lymph % (Auto) [place] % (Auto) Eos % (Auto) Baso % (Auto) Lymph # (Auto) [place] # (Auto) Eos # (Auto) Baso # (Auto) Abs Immat Gran (auto) Absolute Neuts (auto) Absolute Nucleated RBC Nucleated RBC
== END 2022-09-30 22:37 | disposition home or self-care (01) ==
LOC: ANHED 11:03 → ANHOBPP 09-30 06:09
PROVIDERS: Physician Assistant; Admitting Provider Advanced Practice Midwife; Emergency Provider General Practice; PCP Obstetrics & Gynecology Gynecology; Visit Provider Advanced Practice Midwife
DX: O21.8 Other vomiting complicating pregnancy (principal); O99.891 Other specified diseases and conditions complicating pregnancy; N39.0 Urinary tract infection, site not specified; B95.2 Enterococcus as the cause of diseases classified elsewhere; O24.112 Pre-existing type 2 diabetes mellitus, in pregnancy, second trimester; O99.282 Endocrine, nutritional and metabolic diseases complicating pregnancy, second trimester; E87.1 Hypo-osmolality and hyponatremia; E87.6 Hypokalemia; Z3A.19 19 weeks gestation of pregnancy
CPT/HCPCS: 36415; 36600; 80048; 80053; 81001; 81003; 82010; 82805; 82948; 83036; 83735; 85025; 87077; 87086; 87186; 96361; 96365; 96375; 96376; 99285; A9270; G0378; J0696; J2405; J2550; J2765; J3480; J7040; J7042; J7120; J7121

== ENCOUNTER 2022-12-09 20:28 | Observation (INO) | payer OTHER, BC, MEDICAID, SELFPAY ==
[2022-12-09 21:01] VITALS: BP 116/76; PULSE 90
[2022-12-09 21:31] LABS: Appearance Urine Turbid (Clear); Bacteria Urine None Seen /hpf; Bilirubin Urine 1+ (Negative); Blood Urine Negative (Negative); Color Urine Dark Yellow (Yellow); Glucose Urine UA 3+ mg/dL (Negative); Ketones Urine 4+ mg/dL (Negative); Leukocyte Esterase Ur Trace LEU/UL (NEGATIVE); Need Manual Microscopic Reviewed; Nitrate Urine Negative (Negative); Non Pathogenic Casts 0-2; Protein Urine 1+ mg/dL (Negative); RBC Urine 0-2 /hpf (0-2); Specific Grav Ur 1.027 (1.001-1.035); Squamous Epithelial Cell Urine Few /hpf (Few); pH Urine 6.5 (5.0-9.0)
[2022-12-09 21:32] LABS: Add Urine Microscopic? YES
--- NOTE | 2022-12-09 21:32 | OBADM ---
This patient, Karina Fuchs, admitted to the OB room OB Post 115 for observation. Patient/family oriented to hospital policies and general routines including ID bracelet, bed and alarms, visiting hours, pain management, procedures, bathroom and other care routines, personal items, smoking policy, room service/diet, and visiting hours. Patient/Family are encouraged to report perceived risks to care and to ask questions if they do not understand what they are told or what they should do.
--- NOTE | 2022-12-16 07:35 | P.PNOB_ITS ---
OB - Triage/Final Diagnosis Visit Information Date of evaluation: 12/09/22 Comments/Additional reasons for admission: I have assessed the risk for this patient, Karina Fuchs, and determined that she would benefit from observation care. Evaluation Laboratory results: Laboratory Tests 12/09/22 20:49 Urine Color Dark yellow Urine Appearance Turbid H Urine pH 6.5 Ur Specific [place] 1.027 Urine Protein 1+ H Urine Glucose (UA) 3+ H Urine Ketones 4+ H Ur Blood (Man) Negative Urine Nitrate Negative Urine Bilirubin 1+ H Urine Urobilinogen 1.0 Ur Leukocyte Esterase Trace H Add Ur Microanalysis Reviewed Urine RBC 0-2 Urine WBC 6-10 Ur Squamous Epith Cells Few Urine Bacteria None seen Urine Casts 0-2 Comments: FHTs reassuring. Good movement. No vaginal bleeding. Urine very dark in color but no evidence of UTI. Encouraged to increase PO hydration with water (had been drinking gatorade and other liquids, not water.)
--- NOTE | 2022-12-20 09:29 | P.PNOB_ITS ---
OB - Triage/Final Diagnosis Visit Information Date of evaluation: 12/09/22 Reason for evaluation: other (dizziness) Comments/Additional reasons for admission: I have assessed the risk for this patient, Karina Dawson Jef, and determined that she would benefit from observation care. Evaluation Laboratory results: Laboratory Tests 12/09/22 20:49 Urine Color Dark yellow Urine Appearance Turbid H Urine pH 6.5 Ur Specific [place] 1.027 Urine Protein 1+ H Urine Glucose (UA) 3+ H Urine Ketones 4+ H Ur Blood (Man) Negative Urine Nitrate Negative Urine Bilirubin 1+ H Urine Urobilinogen 1.0 Ur Leukocyte Esterase Trace H Add Ur Microanalysis Reviewed Urine RBC 0-2 Urine WBC 6-10 Ur Squamous Epith Cells Few Urine Bacteria None seen Urine Casts 0-2 Final Diagnosis (1) Type 1 diabetes mellitus: Code(s): E10.9 - Type 1 diabetes mellitus without complications Status: Acute (2) Acute dehydration: Code(s): E86.0 - Dehydration Status: Acute
== END 2022-12-09 22:26 | disposition home or self-care (01) ==
PROVIDERS: Admitting Provider Advanced Practice Midwife; Visit Provider Advanced Practice Midwife
DX: O24.012 Pre-existing type 1 diabetes mellitus, in pregnancy, second trimester (principal); E10.69 Type 1 diabetes mellitus with other specified complication; O99.282 Endocrine, nutritional and metabolic diseases complicating pregnancy, second trimester; E86.0 Dehydration; O99.891 Other specified diseases and conditions complicating pregnancy; M54.9 Dorsalgia, unspecified; Z3A.27 27 weeks gestation of pregnancy
CPT/HCPCS: 81001; 87086; 87088; G0378; G0379

== ENCOUNTER 2023-01-26 13:34 | Observation (INO) | payer OTHER, MEDICAID, SELFPAY ==
[2023-01-26] VITALS (13 sets, daily range): BP systolic 89–121; BP diastolic 55–82; PULSE 82–166; O2SAT 83–100
[2023-01-26 14:10] LABS: Appearance Urine Cloudy (Clear); Bacteria Urine None Seen /hpf; Bilirubin Urine Negative (Negative); Blood Urine Negative (Negative); Color Urine Yellow (Yellow); Glucose Urine UA 3+ mg/dL (Negative); Ketones Urine 2+ mg/dL (Negative); Leukocyte Esterase Ur Negative LEU/UL (NEGATIVE); Nitrate Urine Negative (Negative); Non Pathogenic Casts 0-2; Protein Urine Negative (Negative); RBC Urine 0-2 /hpf (0-2); Squamous Epithelial Cell Urine Occasional /hpf (Few); Urobilinogen Urine 0.2 mg/dL (<2.0); WBC Urine 0-5 /hpf (0-3); pH Urine 7.5 (5.0-9.0)
[2023-01-26 14:15] LABS: Add Urine Microscopic? NO
--- NOTE | 2023-01-26 15:17 | PC.NURSE ---
Dr Abdullahi notified of adm c/o, hx of type I DM, uterine irritability and no pattern noted, informed of dexcom reading, informed of transfer of care from Dr Velazquez and reactive fht's. Order to draw a Hg A1C and dc home if patient is being followed for blood sugars with MFM.
[2023-01-26 16:00] LABS: Hemoglobin A1C 5.6 % (<5.7)
--- NOTE | 2023-01-26 16:25 | PC.NURSE ---
Dr Abdullahi notified of Hgb A1C, occasional variable decels, c/o feeling light headed and dizzy, and occasional chest tightening. Order to offer further evaluation in Er for above complaints and Ok to be discharged from OB.
--- NOTE | 2023-01-26 16:35 | PC.NURSE ---
Discharge planning discussed with patient, patient offered further evaluation in ER for light headed, dizziness and intermittent chest tightness, informed that she has been cleared for OB complaints. Patient declining further evaluation at this time. Patient encouraged to go to ER if symptoms don't improve or get worse. Patient wishing to go home.
--- NOTE | 2023-02-19 11:29 | PM.OBTRLD ---
OB - Triage/Final Diagnosis Visit Information Comments/Additional reasons for admission: I have assessed the risk for this patient, Karina Fuchs, and determined that she would benefit from observation care. Evaluation Laboratory results: Laboratory Tests 01/26/23 01/26/23 13:59 15:44 Hemoglobin A1c 5.6 Urine Color Yellow Urine Appearance Cloudy H Urine pH 7.5 Ur Specific [place] 1.010 Urine Protein Negative Urine Glucose (UA) 3+ H Urine Ketones 2+ H Ur Blood (Man) Negative Urine Nitrate Negative Urine Bilirubin Negative Urine Urobilinogen 0.2 Ur Leukocyte Esterase Negative Urine RBC 0-2 Urine WBC 0-5 Ur Squamous Epith Cells Occasional Urine Bacteria None seen Urine Casts 0-2 Final Diagnosis (1) False labor: Code(s): O47.9 - False labor, unspecified Status: Acute
== END 2023-01-26 16:39 | disposition home or self-care (01) ==
PROVIDERS: Admitting Provider Obstetrics & Gynecology; Visit Provider Obstetrics & Gynecology
DX: O47.03 False labor before 37 completed weeks of gestation, third trimester (principal); O26.893 Other specified pregnancy related conditions, third trimester; M54.9 Dorsalgia, unspecified; Z3A.34 34 weeks gestation of pregnancy
CPT/HCPCS: 36415; 81003; 83036; 87086; 87088; G0378; G0379

== ENCOUNTER 2023-04-18 17:04 | Inpatient (IN) | payer MEDICAID, SELFPAY ==
[2023-04-18] VITALS (15 sets, daily range): BP systolic 97–144; BP diastolic 39–115; PULSE 132–157; RESP 22–29; TEMP 36.1–38.1; O2SAT 97–100
--- NOTE | ~2023-04-18 | CT_ITS ---
EXAMINATION: CT chest abdomen pelvis wo con DATE: 04/18/2023 21:20 INDICATION: dka, febrile . TECHNIQUE: Computed tomography (CT) of the chest, abdomen, and pelvis was performed with 100 mL Omnip aque-350 intravenous contrast. Automated exposure control and iterative reconstruction technique were employed. The dose-length product was 1359.35 mGy-cm. COMPARISON: X-ray chest same date; CT abdomen pelvis 04/23/2015 FINDINGS: Exam limited by lack of contrast and arm down positioning. CHEST: Thoracic aorta: No significant dilation or calcification. Lung parenchyma and airways: Mild motion artifact in the lungs. Minimal dependent atelectasis. The ai rways are clear. Thoracic inlet, axillae and chest wall: No thyroid or soft tissue mass. No axillary lymphadenopathy. Right IJ central line terminating at the cavoatrial junction. Mediastinum: No mass or lymphadenopathy. Small hiatal hernia. Residual thymic tissue. Heart and pericardium: Enlarged heart. No pericardial effusion. Coronary artery calcifications: Absent. Pleura: No effusion or mass. Thoracic bones: No acute osseous finding in the chest. ABDOMEN/PELVIS: Liver: Diffuse fatty infiltration. Biliary/Gallbladder: Gallbladder is normal size, filled with hyperdense material. No bile duct dilati on. Pancreas: No mass or duct dilation. Spleen: Normal. Adrenals:No mass. Kidneys: No suspicious mass or significant perinephric stranding. Mild atelectasis, pelviectasis, and ureterectasis on the right, probably stable since the prior study but less well visualized previousl y due to positioning and artefact. GI tract: No small or large bowel dilation. Normal appendix. Mesentery/Peritoneum: No ascites, mass, or free air. Retroperitoneum: No mass Pelvis: Mendoza catheter in the bladder. Gas and residual fluid in the bladder lumen. Moderate urinary bladder wall thickening without inflammatory change. Soft Tissues: Soft tissues and body wall unremarkable. Abdominopelvic bones: No acute osseous finding in the abdomen/pelvis. IMPRESSION: Mild cardiomegaly. Hepatic steatosis. Hyperdense material fills the gallbladder lumen as can be seen with spurious excretion of contrast, w hich limits evaluation, but there is no surrounding inflammatory change. Mild right hydronephrosis, not significantly changed the prior study. No obstructing calcification. Residual fluid in the lateral lumen, correlate with function of the Mendoza catheter. Urinary bladder w all thickening likely due to incomplete distention, cystitis is not excluded. Reviewed, dictated and finalized at location K. FOLDER IMPRESSION: Mild cardiomegaly. Hepatic steatosis. Hyperdense material fills the gallbladder lumen as can be seen with spurious ex cretion of contrast, which limits evaluation, but there is no surrounding infla mmatory change. Mild right hydronephrosis, not significantly changed the prior study. No obstru cting calcification. Residual fluid in the lateral lumen, correlate with function of the Mendoza jose ter. Urinary bladder wall thickening likely due to incomplete distention, cysti tis is not excluded.
--- NOTE | ~2023-04-18 | XR_ITS ---
EXAMINATION: XR chest port-a-cath/central Exam Date/Time: 04/18/2023 17:55 BARREL RIFLER BROACH HISTORY: DKA, CENTRAL LINE PLACEMENT Comparison: 04/26/2019. RESULT: Lines, tubes, and devices: Right IJ central line terminating at the cavoatrial junction. Lungs and pleura: Clear. Cardiomediastinal silhouette: Stable. Other: No acute osseous or upper abdominal finding. IMPRESSION: Right IJ central line in good position. Reviewed, dictated and finalized at location K. EL RIFLER BROACH
--- NOTE | ~2023-04-18 | CT_ITS ---
EXAMINATION: CT brain wo con DATE: 04/18/2023 18:56 INDICATION: AMS, DKA . TECHNIQUE: Computed tomography (CT) of the head was performed without intravenous contrast. The mA wa s adjusted according to patient size. Iterative reconstruction technique was employed. The dose-lengt h product was 605.33 mGy-cm. COMPARISON: 04/23/2015. FINDINGS: No acute intracranial hemorrhage or extra-axial fluid collection. No hydrocephalus, mass, or herniation. No acute ischemic infarct. Unremarkable dural venous sinus attenuation. No acute osseous abnormality. The aerated spaces are clear. IMPRESSION: No acute intracranial process. Reviewed, dictated and finalized at location K. WASHER
[2023-04-18 17:27] LABS: Glucose Point of Care > 500 mg/dl (65-105)
--- NOTE | 2023-04-18 17:39 | ED.RECABL ---
HPI - Recheck/Abnormal Lab/Rx General Chief Complaint: Recheck/Abnormal Lab/Rx Stated Complaint: high blood sugar Time Seen by Provider: 04/18/23 17:11 Related Data Home Medications Medication Instructions Recorded Confirmed insulin pump cartridge 09/29/22 09/29/22 metoclopramide HCl 10 mg tablet 10 mg PO Q6H PRN Nausea And 09/29/22 09/29/22 Vomiting Allergies Allergy/AdvReac Type Severity Reaction Status Date / Time No Known Allergies Allergy Unknown Verified 09/29/22 08:32 [facility] Past Medical History Medical History (Updated 02/19/23 @ 11:30 by Ros Bunch MD) Abdominal pain Chronic abdominal pain Anxiety Finger fracture Gastric ulcer On recent EGD at [facility] Type 1 diabetes mellitus Surgical History Surgical History (Updated 04/19/20 @ 06:43 by Lu Mueller MD) Hx of section 2016 Hx of dilation and curettage 2019 following missed ab Hx of tonsillectomy Family History Family History Mother Family history of anemia Father Unknown family medical history Other Family history of arthritis Family history of hepatitis Family history of liver disease Social History Social History (Updated 10/01/22 @ 00:58 by Renee Gomez PA-C) Smoking status: Never smoker Alcohol intake: never Substance use: never Substance use type: does not use Spiritual care concerns: No Agree to blood products: Yes Course Vital Signs Vital signs: Vital Signs Temperature 97.0 F L 04/18/23 17:17 Pulse Rate 146 H 04/18/23 17:17 Respiratory Rate 28 H 04/18/23 17:17 Temperature 97.0 F L 04/18/23 17:17 Pulse Rate 146 H 04/18/23 17:17 Respiratory Rate 28 H 04/18/23 17:17 MDM - Recheck/Abnormal Lab/Rx Lab Data Labs: Lab Results 04/18/23 Range/Units 17:12 POC Capillary Glucose > 500 H* (65-105) mg/dl Discharge Plan Discharge Prescriptions: No Action metoclopramide HCl 10 mg tablet 10 mg PO Q6H PRN (Reason: Nausea And Vomiting) (DME) insulin pump cartridge Cartridge SUBCUT Follow-up/Referrals: UNKNOWN,DOCTOR [Primary Care Provider] -
[2023-04-18 17:47] LABS: Basophils Percent Auto 0.2 % (0.2-1.2); Hematocrit 41.2 % (37.0-47.0); Hemoglobin 12.2 g/dL (12.0-15.0); Immature Granulocyte Absolute 0.24 K/mm3 (0.00-0.031); Immature Granulocyte Percent A 1.1 % (0-0.5); Lymphocytes Absolute Auto 2.07 K/mm3 (0.9-3.2); Lymphocytes Percent Auto 9.3 % (18.3-44.2); Mean Corpuscular HGB Conc 29.6 g/dl (32-36); Mean Corpuscular Hemoglobin 28.8 pg (26-34); Mean Corpuscular Volume 97.2 fl (80-100); Mean Platelet Volume 9.8 fl (7.4-10.4); Monocytes Absolute Auto 2.4 K/mm3 (0.1-0.6); Monocytes Percent Auto 10.8 % (2.6-8.5); Neutrophils Absolute Auto 17.4 K/mm3 (1.3-6.7); Neutrophils Percent Auto 78.6 % (45.5-73.1); Platelet Count Result 463 k/mm3 (150-375); Red Blood Count 4.24 M/mm3 (4.2-5.4); Red Cell Distribution Width 16.7 % (11.5-14.5); White Blood Count 22.1 K/mm3 (4.5-10.0)
--- NOTE | 2023-04-18 17:50 | ECG_ITS ---
Measurements Intervals [place] Rate: 153 P: 79 MI: 118 QRS: 93 QRSD: 82 T: 14 QT: 282 QTc: 451 Interpretive Statements SINUS TACHYCARDIA ] NONSPECIFIC ST & T-WAVE ABNORMALITY ABNORMAL RHYTHM ECG COMPARED TO ECG 06/28/2018 15:12:23 HEART RATE INCREASED Electronically Signed On 04-19-2023 7:22:26 [employer] THER[employer]IST by Dorian Sanchez M.D.
--- NOTE | 2023-04-18 17:58 | ED.GENADULT ---
HPI - General Adult General Chief complaint: Recheck/Abnormal Lab/Rx <Parminder Walsh MD - Last Filed: 04/21/23 18:28> Stated complaint: high blood sugar <Parminder Walsh MD - Last Filed: 04/21/23 18:28> Time Seen by Provider: 04/18/23 17:11 <Parminder Walsh MD - Last Filed: 04/21/23 18:28> History of Present Illness HPI narrative: 27 y/o F with history of type 1 diabetes reports with her fiance at bedside from home for elevated blood sugar. The patient is somnolent and lethargic and is unable to provide history. The fiancee provides the following history. States the patient was vomiting all day yesterday and was complaining of nausea. States today she became lethargic this morning and noticed that her insulin pump had turned off. He states throughout the day she became more somnolent which prompted him to bring her to the ED. he states she thinks she is in DKA and has been in DKA multiple times before. The patient normally checks her blood glucose with a finger stick and states her last blood sugar at home was 600 prior to arrival. Fiance denies known fevers, cough, or other complaints from the patient. <Trang Lemus PA-C - Last Filed: 04/19/23 00:46> Related Data Home medications: Home Medications Medication Instructions Recorded Confirmed insulin lispro 100 unit/mL See Rx Instructions .Route .COMPLEX 04/18/23 04/18/23 subcutaneous solution <Parminder Walsh MD - Last Filed: 04/21/23 18:28> Allergies/adverse reactions: Allergies Allergy/AdvReac Type Severity Reaction Status Date / Time No Known Allergies Allergy Unknown Verified 09/29/22 08:32 <Parminder Walsh MD - Last Filed: 04/21/23 18:28> Review of Systems Review of Systems: Unable to perform ROS due to patient state <Trang Lemus PA-C - Last Filed: 04/19/23 00:46> [facility] Past Medical History Medical History: Medical History Abdominal pain Chronic abdominal pain Anxiety Finger fracture Gastric ulcer On recent EGD at [facility] Type 1 diabetes mellitus <Parminder Walsh MD - Last Filed: 04/21/23 18:28> Surgical History Surgical History: Surgical History Hx of section 2017 Hx of dilation and curettage 2019 following missed ab Hx of tonsillectomy <Parminder Walsh MD - Last Filed: 04/21/23 18:28> Family History Family History: Family History Mother Family history of anemia Father Unknown family medical history Other Family history of arthritis Family history of hepatitis Family history of liver disease <Parminder Walsh MD - Last Filed: 04/21/23 18:28> Social History Social History: Social History Smoking status: Never smoker Alcohol intake: former Substance use: never Substance use type: does not use Do You Feel Safe in your Home?: Yes Lack of Transportation: No Lack of Food: Never True Current Housing: I Have Housing Concerned About Future Housing: No Difficulty Paying Gas/Electric Bills: No Difficulty Paying for Meds: No Currently Unemployed: No Education: Associate Degree Difficulty w/ Childcare or Family Care: No Spiritual care concerns: No Agree to blood products: Yes <Parminder Walsh MD - Last Filed: 04/21/23 18:28> Exam Narrative: APPEARANCE: Somnolent and ill-appearing HEAD: normocephalic, atraumatic. EYES: PERRLA/EOMI, conjunctivae clear. NOSE: Normal no drainage EARS:TMS clear with good light reflex. THROAT: Pharynx clear, no exudate. NECK: Supple. No adenopathy, no masses. RESPIRATORY: Airway patent, respirations nonlabored. Clear to auscultation bilaterally, no rales, rhonchi, wheezing. CARDIOVASCULAR: tachycardia ABDOMINAL: Soft, nontender, nondistended,
[2023-04-18] MEDS: SODIUM CHLORIDE 0.9% IV 1,000 ML 999 ML IV CONT ×4 (17:59→20:23)
[2023-04-18 18:00] LABS: Hypochromasia 1+ (NORMAL); Ovalocytes 1+ (NORMAL); Platelet Estimate Increased (Adequate)
[2023-04-18 18:01] LABS: Schistocytes None Seen (NORMAL)
[2023-04-18] MEDS: INSULIN HUMAN REGULAR (*BKC) 100 UNITS/ML 11 UNITS IV PUSH (18:03)
[2023-04-18] MEDS: INSULIN HUMAN REGULAR (*BKC) 100 UNITS in SODIUM CHLORIDE 0.9% IV 99 ML 7.5 UNITS IV CONT (18:03)
[2023-04-18 18:07] LABS: Alanine Aminotransferase 64 U/L (6-35); Albumin Level 4.7 g/dL (3.5-5.1); Alkaline Phosphatase 93 U/L (38-126); Anion Gap 32 mmol/L (8-16); Aspartate Amino Transferase 35 U/L (14-36); Bilirubin,Total 1.1 mg/dL (0.2-1.3); Blood Urea Nitrogen 50 mg/dL (7-17); Calcium 9.2 mg/dL (8.4-10.2); Carbon Dioxide 6 mmol/L (22-30); Chloride 97 mmol/L (98-107); Estimated CRCL calculation 24 ml/min; Estimated Glomerular Filt Rate 18; Glucose 995 mg/dL (65-110); Magnesium 2.1 mg/dL (1.6-2.3); Potassium 5.5 mmol/L (3.4-5.0); Sodium 135 mmol/L (137-145)
--- NOTE | 2023-04-18 18:23 | PC.NURSE ---
received verbal consent for central line placement from SO.
[2023-04-18 18:28] LABS: Alveolar/Arterial O2 Gradient 9.8 mmHg; Base Excess ABG -19.6 mEq/l (+/-2.0); Fractional Inspired Oxygen 21 %; HCO3 ABG 6.9 mEq/l (22.0-26.0); Oxygen Content ABG 15.8 %vol (16.0-22.0); Oxygen Saturation ABG 97.3 % (95.0-100.0); Oxyhemoglobin 95.8 % THb (90.0-100.0); PO2 ABG 116.8 mmHg (80.0-100.0); PO2 FiO2 Ratio Arterial Blood 5.56 %; Total Hemoglobin 11.6 g/dL (12.0-18.0)
[2023-04-18 18:29] LABS: Beta-Hydroxybutyrate/Acetoacetate 6.86 mmol/L (0.02-0.27)
[2023-04-18 18:30] LABS: pH ABG 7.173 (7.350-7.450)
[2023-04-18 18:31] LABS: Appearance Urine Clear (Clear); Bilirubin Urine Negative (Negative); Blood Urine Negative (Negative); Color Urine Yellow (Yellow); Glucose Urine UA 3+ mg/dL (Negative); Ketones Urine 3+ mg/dL (Negative); Leukocyte Esterase Ur Negative LEU/UL (Negative); Nitrate Urine Negative (Negative); Protein Urine Negative (Negative); Specific Grav Ur 1.028 (1.001-1.035); Urobilinogen Urine 0.2 mg/dL (<2.0); pH Urine 5.5 (5.0-9.0)
[2023-04-18 18:31] LABS: Device ROOM AIR; Modified Allen's Test Pass; PCO2 ABG 19.3 mmHg (35.0-45.0); Site Drawn LEFT RADIAL
[2023-04-18 18:33] LABS: Add Urine Microscopic? NO
[2023-04-18 18:44] LABS: Acetaminophen < 10 ug/mL (10-30); Ethanol < 10 mg/dL (<10); Salicylate < 1.0 mg/dL (2-20)
[2023-04-18 18:47] LABS: Glucose Point of Care > 500 mg/dl (65-105)
[2023-04-18 18:53] LABS: Amphetamine Screen Urine Negative (Negative); Barbiturate Screen Urine Negative (Negative); Benzodiazepines Screen Urine Negative (Negative); Cannabinoid Screen Urine Negative (Negative); Cocaine Screen Urine Negative (Negative); Methadone Screen Urine Negative (Negative); Opiate Screen Urine Negative (Negative); Phencyclidine Screen Urine Negative (Negative)
[2023-04-18 18:58] LABS: Influenza A QL RT-PCR Negative (Negative); Influenza B QL RT-PCR Negative (Negative); RSV RNA, RT-PCR Negative (Negative); SARS-CoV-2 RNA PCR Negative (Negative)
[2023-04-18 19:19] LABS: Glucose Point of Care > 500 mg/dl (65-105)
--- NOTE | 2023-04-18 19:33 | PC.NURSE ---
Assumed care of pt from MARY Nichols at this time. Pt BG still reading HI . Insulin titrated per DKA protocol. Pt at bedside.
[2023-04-18 19:58] LABS: Creatine Kinase 106 U/L (30-135)
[2023-04-18 20:03] LABS: Glucose Point of Care > 500 mg/dl (65-105)
[2023-04-18 20:20] LABS: Glucose Point of Care 446 mg/dl (65-105)
--- NOTE | 2023-04-18 20:24 | PC.NURSE ---
Pt BG 446. Insulin drip titrated per DKA protocol.
[2023-04-18] MEDS: ACETAMINOPHEN 650 MG SUPPOSITORY RECTAL (20:30)
[2023-04-18 21:31] LABS: Glucose Point of Care 372 mg/dl (65-105)
[2023-04-18 22:00] LABS: Reflex Lactic Acid Yes or No Add Lactic
[2023-04-18 22:33] LABS: Glucose Point of Care 278 mg/dl (65-105)
[2023-04-18 22:33] LABS: Glucose Point of Care 311 mg/dl (65-105)
[2023-04-18 23:08] LABS: Hemoglobin A1C 5.6 % (<5.7)
[2023-04-18] MEDS: NOREPINEPHRINE 8 MG/D5W 250 ML 8 MG/250 ML BAG 9.38 MG IV CONT (23:16)
[2023-04-18] MEDS: PIPERACILLIN/TAZ 2.25G/NS 50ML 2.25 GM/50 ML BAG IVPB (23:19)
[2023-04-18 23:32] LABS: Basophils Percent Auto 0.2 % (0.2-1.2); Eosinophils Percent Auto 0.1 % (0-4.4); Hematocrit 32.1 % (37.0-47.0); Hemoglobin 10.5 g/dL (12.0-15.0); Immature Granulocyte Absolute 0.21 K/mm3 (0.00-0.031); Immature Granulocyte Percent A 1.1 % (0-0.5); Lymphocytes Absolute Auto 2.56 K/mm3 (0.9-3.2); Lymphocytes Percent Auto 13.3 % (18.3-44.2); Mean Corpuscular HGB Conc 32.7 g/dl (32-36); Mean Corpuscular Hemoglobin 29.1 pg (26-34); Mean Corpuscular Volume 88.9 fl (80-100); Mean Platelet Volume 9.2 fl (7.4-10.4); Monocytes Absolute Auto 2.4 K/mm3 (0.1-0.6); Monocytes Percent Auto 12.6 % (2.6-8.5); Neutrophils Absolute Auto 14.1 K/mm3 (1.3-6.7); Neutrophils Percent Auto 72.7 % (45.5-73.1); Platelet Count Result 335 k/mm3 (150-375); Red Blood Count 3.61 M/mm3 (4.2-5.4); Red Cell Distribution Width 15.4 % (11.5-14.5); White Blood Count 19.3 K/mm3 (4.5-10.0)
[2023-04-18 23:41] LABS: Alanine Aminotransferase 25 U/L (6-35); Albumin Level 3.6 g/dL (3.5-5.1); Alkaline Phosphatase 52 U/L (38-126); Anion Gap 9 mmol/L (8-16); Aspartate Amino Transferase 34 U/L (14-36); Bilirubin,Total 0.6 mg/dL (0.2-1.3); Blood Urea Nitrogen 49 mg/dL (7-17); Calcium 8.2 mg/dL (8.4-10.2); Carbon Dioxide 16 mmol/L (22-30); Chloride 119 mmol/L (98-107); Estimated CRCL calculation 43 ml/min; Estimated Glomerular Filt Rate 36; Glucose 206 mg/dL (65-110); Magnesium 1.9 mg/dL (1.6-2.3); Phosphorus 1.8 mg/dL (2.5-4.5); Potassium 3.8 mmol/L (3.4-5.0); Sodium 144 mmol/L (137-145)
--- NOTE | 2023-04-18 23:42 | PC.NURSE ---
report called to MARY Guaman in ICU at 2230. KEANU Steinberg requested admission order to be completed. Pt needed US IV placed to start medications due to not being compatible. levo, insulin, and zosyn. Pt IV US by wired music operator JAcob.
[2023-04-18 23:52] LABS: MRSA (PCR) NOT DETECTED (NOT DETECTE)
[2023-04-18] MEDS: VANCOMYCIN 1,250 MG/NS 250 ML 1,250 MG/250 ML BAG 166.67 MG IVPB (23:53)
[2023-04-18] MEDS: CENTRAL LINE FLUSH 10 ML IV PUSH (23:54)
[2023-04-18 23:56] LABS: Glucose Point of Care 162 mg/dl (65-105)
[2023-04-18 23:57] LABS: Alveolar/Arterial O2 Gradient 21.2 mmHg; Base Excess ABG -4.7 mEq/l (+/-2.0); Fractional Inspired Oxygen 21 %; HCO3 ABG 19.3 mEq/l (22.0-26.0); Oxygen Content ABG 15.1 %vol (16.0-22.0); Oxyhemoglobin 95.3 % THb (90.0-100.0); PCO2 ABG 32.2 mmHg (35.0-45.0); PO2 FiO2 Ratio Arterial Blood 4.29 %; Total Hemoglobin 11.2 g/dL (12.0-18.0); pH ABG 7.396 (7.350-7.450)
[2023-04-18 23:58] LABS: Device ROOM AIR; Modified Allen's Test Pass; Site Drawn RIGHT RADIAL
[2023-04-19] VITALS (35 sets, daily range): BP systolic 81–146; BP diastolic 39–98; PULSE 95–141; RESP 12–30; TEMP 37.7–38; O2SAT 97–100; BMI 30.5
--- NOTE | 2023-04-19 | PM.IMHP ---
H&P: HPI History of Present Illness Date/Time: 04/19/23 00:00 Chief Complaint: AMS Narrative: THIS IS A 27-YEAR-OLD FEMALE WITH PAST MEDICAL HISTORY SIGNIFICANT FOR TYPE 1 DIABETES ON INSULIN PUMP AT WAS BROUGHT TODAY TO THE EMERGENCY ROOM BY HER FIANCE DUE TO ALTERED MENTAL STATUS WITH OBTUNDATION, LETHARGY, POOR PER ORALLY INTAKE ABNORMAL BLOOD SUGAR ELEVATED INSULIN PUMP WAS DETACHED PATIENT HAD VOMITING AND NAUSEA THE DAY BEFORE IN THE MORNING BECAME OBTUNDED AND LETHARGIC WHICH PROGRESSED TO WORSE WORSENING IN THE EARLY AFTERNOON HOURS WHICH PROMPTED HER FIANCE TO BRING HER TO THE EMERGENCY ROOM. AT THE TIME OF MY VISIT PATIENT WAS STILL OBTUNDED, LETHARGIC I WAS UNABLE TO GET ANY HISTORY. PRELIMINARY WORKUP IN EMERGENCY ROOM WAS SIGNIFICANT FOR A LACTIC ACID OF 6, PH WAS 7.1, PCO2 19, PO2 116, BUN 50 CREATININE 3.1, BICARB WAS 6 ANION GAP WAS 32 BLOOD GLUCOSE WAS 995 BETA HYDROXYBUTYRATE WAS 6.8 EXAMINATION:? XR chest port-a-cath/central Exam Date/Time:? 04/18/2023 17:55 LOOM WINDER TENDER HISTORY: DKA, CENTRAL LINE PLACEMENT ? Comparison:? 04/26/2019. RESULT: Lines, tubes, and devices:? Right IJ central line terminating at the cavoatrial junction. Lungs and pleura:? Clear. Cardiomediastinal silhouette:? Stable. Other:? No acute osseous or upper abdominal finding. ? IMPRESSION: Right IJ central line in good position. EXAMINATION: CT brain wo con DATE: 04/18/2023 18:56 INDICATION: AMS, DKA . TECHNIQUE: Computed tomography (CT) of the head was performed without intravenous contrast. The mA was adjusted according to patient size. Iterative reconstruction technique was employed. The dose-length product was 605.33 mGy-cm. COMPARISON: 04/23/2015. FINDINGS: No acute intracranial hemorrhage or extra-axial fluid collection. No hydrocephalus, mass, or herniation. No acute ischemic infarct. Unremarkable dural venous sinus attenuation. No acute osseous abnormality. The? aerated spaces are clear. IMPRESSION:? No acute intracranial process. EXAMINATION: CT chest abdomen pelvis wo con DATE: 04/18/2023 21:20 INDICATION: dka, febrile . TECHNIQUE: Computed tomography (CT) of the chest, abdomen, and pelvis was performed with 100 mL Omnipaque-350 intravenous contrast. Automated exposure control and iterative reconstruction technique were employed. The dose-length product was 1359.35 mGy-cm. COMPARISON: X-ray chest same date; CT abdomen pelvis 04/23/2015 FINDINGS: Exam limited by lack of contrast and arm down positioning. CHEST: Thoracic aorta: No significant dilation or calcification. Lung parenchyma and airways: Mild motion artifact in the lungs. Minimal dependent atelectasis. The airways are clear. Thoracic inlet, axillae and chest wall: No thyroid or soft tissue mass. No axillary lymphadenopathy. Right IJ central line terminating at the cavoatrial junction. Mediastinum: No mass or lymphadenopathy. Small hiatal hernia. Residual thymic tissue. Heart and pericardium: Enlarged heart. No pericardial effusion. Coronary artery calcifications: Absent. Pleura: No effusion or mass. Thoracic bones: No acute osseous finding in the chest. ABDOMEN/PELVIS: Liver: Diffuse fatty infiltration. Biliary/Gallbladder: Gallbladder is normal size, filled with hyperdense material. No bile duct dilation. Pancreas: No mass or duct dilation. Spleen: Normal. Adrenals:No mass. Kidneys: No suspicious mass or significant perinephric stranding. Mild atelectasis, pelviectasis, and ureterectasis on the right, probably stable since the prior study but less well visualized previously due to positioning and artefact. GI tract: No small or large bowel dilation. Normal appendix. Mesentery/Peritoneum: No ascites, mass, or free air. Retroperitoneum: No mass Pelvis: Mendoza catheter in the bladder. Gas and residual fluid in the bladder lumen. Moderate urinary bladder wall thickening without inflammatory change. Soft Tissues: Soft tissues and body wall unrem
--- NOTE | 2023-04-19 00:06 | ADMGEN ---
This patient, Karina Fuchs, was admitted to Intensive Care Unit-9. Patient/family oriented to hospital policies and general routines including ID bracelet, bed and alarms, visiting hours, pain management, procedures, bathroom and other care routines, personal items, smoking policy, room service/diet, and visiting hours. Information on how to activate the Rapid Response Team has been discussed. Patient/Family are encouraged to report perceived risks to care and to ask questions if they do not understand what they are told or what they should do.
[2023-04-19] MEDS: KCL 20 MEQ/D5/0.45% SOD CHL 1,000 ML 150 ML IV CONT ×2 (00:40→04:56)
[2023-04-19 01:05] LABS: Glucose Point of Care 162 mg/dl (65-105)
[2023-04-19 02:03] LABS: Glucose Point of Care 234 mg/dl (65-105)
--- NOTE | 2023-04-19 02:35 | PC.NURSE ---
Dr. Chacon was updated on the patient's condition at 0233. We discussed vitals, fluids, labs, and imaging results. Orders received to leave patient on insulin gtt until he arrives in the morning and continue to monitor.
[2023-04-19 02:43] LABS: Glucose Point of Care 326 mg/dl (65-105)
[2023-04-19] MEDS: SODIUM CHLORIDE 0.9% IV 1,000 ML 150 ML IV CONT (02:57)
[2023-04-19] MEDS: ONDANSETRON INJ 4 MG/2 ML VIAL IV PUSH ×2 (03:20→09:52)
--- NOTE | 2023-04-19 03:23 | PC.NURSE ---
The patient's mom was updated via phone shortly after midnight. Her insulin pump profile reads as follows: Time 0001 1u Basal 1:30 Correct 1:5 Carb 110 Target BG Time 0300 1.55u Basal 1:30 Correct 1:5 Carb 110 Target BG Time 0800 1u Basal 1:30 Correct 1:5 Carb 110 Target BG Time 1900 1u Basal 1:30 Correct 1:5 Carb 110 Target BG
[2023-04-19 03:38] LABS: Anion Gap 13 mmol/L (8-16); Blood Urea Nitrogen 43 mg/dL (7-17); Carbon Dioxide 12 mmol/L (22-30); Chloride 117 mmol/L (98-107); Estimated CRCL calculation 46 ml/min; Estimated Glomerular Filt Rate 39; Glucose 328 mg/dL (65-110); Potassium 3.9 mmol/L (3.4-5.0); Sodium 142 mmol/L (137-145)
[2023-04-19] MEDS: INSULIN HUMAN REGULAR (*BKC) 100 UNITS in SODIUM CHLORIDE 0.9% IV 99 ML IV CONT (04:09)
[2023-04-19 04:47] LABS: Glucose Point of Care 345 mg/dl (65-105)
[2023-04-19 04:47] LABS: Glucose Point of Care 218 mg/dl (65-105)
[2023-04-19] MEDS: CENTRAL LINE FLUSH 10 ML IV PUSH ×3 (05:45→20:33)
[2023-04-19] MEDS: PIPERACILLIN/TAZ 2.25G/NS 50ML 2.25 GM/50 ML BAG IVPB (05:45)
[2023-04-19 06:24] LABS: Glucose Point of Care 149 mg/dl (65-105)
[2023-04-19 06:46] LABS: Glucose Point of Care 171 mg/dl (65-105)
[2023-04-19 07:39] LABS: Anion Gap 9 mmol/L (8-16); Blood Urea Nitrogen 38 mg/dL (7-17); Calcium 8.1 mg/dL (8.4-10.2); Carbon Dioxide 17 mmol/L (22-30); Chloride 117 mmol/L (98-107); Estimated CRCL calculation 56 ml/min; Estimated Glomerular Filt Rate 50; Glucose 181 mg/dL (65-110); Potassium 4.1 mmol/L (3.4-5.0); Sodium 143 mmol/L (137-145)
[2023-04-19 07:47] LABS: Glucose Point of Care 172 mg/dl (65-105)
--- NOTE | 2023-04-19 08:43 | WPDCNINT ---
Assessment and Plan Assessment and plan (1) Acute metabolic encephalopathy: Code(s): G93.41 - Metabolic encephalopathy Status: Acute Assessment and Plan: Acute metabolic encephalopathy likely secondary to DKA which is improving now as patient is now drowsy but arousable and AO x3 Her TSH was normal Head CT was unremarkable (2) DKA (diabetic ketoacidosis): Qualifiers: Diabetes mellitus complication detail: with coma Diabetes mellitus type: type 1 Qualified Code(s): E10.11 - Type 1 diabetes mellitus with ketoacidosis with coma Code(s): E11.10 - Type 2 diabetes mellitus with ketoacidosis without coma Status: Acute Assessment and Plan: Patient was treated with iVF bolus and infusion Patient was started on insulin infusion and Q1H glucose monitoring Serial labs were done Patient's anion gap has now closed and patient denies any nausea vomiting abdominal pain I will transition patient to subcutaneous insulin with Lantus and sliding scale Start diabetic diet and advance as tolerated (3) Sepsis: Code(s): A41.9 - Sepsis, unspecified organism Status: Acute Assessment and Plan: Patient met criteria for sepsis although it could be SIRS from DKA Blood and urine cultures have been sent although UA did not suggest UTI CT scan also does not cease show any objective sign of infection I will discontinue vancomycin but continue Zosyn for another 24 hours until culture results are back and deescalate (4) Shock: Code(s): R57.9 - Shock, unspecified Status: Acute Assessment and Plan: Patient was hypotensive on presentation this is likely secondary to hypovolemia although sepsis is a distant possibility Improved with IV fluids and now Levophed has been weaned off Monitor closely (5) Acute dehydration: Code(s): E86.0 - Dehydration Status: Acute Assessment and Plan: Improved with IV fluids Continue IV fluids but at decreased rate Advance diet Plan DVT prophylaxis -SCDs Nutrition -diabetic diet Code Status - Full Code Total Critical Care Time - 30minutes Due to a high probability of clinically significant, life threatening deterioration, the patient required my highest level of preparedness to intervene emergently and I personally spent this critical care time directly and personally managing the patient. This critical care time included obtaining a history; examining the patient; pulse oximetry; ordering and review of studies; arranging urgent treatment with development of a management plan; evaluation of patient's response to treatment; frequent reassessment; and discussions with other providers. It was exclusive of separately billable procedures and treating other patients and teaching time. Please see Assessment and Plan section and the rest of the note for further information on patient assessment and treatment Ice Cream Maker Consult Note Consult date: 04/19/23 Reason for consult: DKA HPI: Karina Fuchs is a 27 year old female with past medical history of type 1 diabetes and DKA is on insulin pump presented to ER last night with chief complaint altered mental status. Patient was drowsy and history was provided by her fiance who found her insulin pump detached from patient patient had been vomiting the day before and was now very drowsy. In ER patient had elevated lactic acid level of 6 pH of 7.1 pCO2 of 19 creatinine of 3.1 bicarb of 6 anion gap 32 blood sugar of 995 and elevated beta hydroxybutyrate at 6.8. Patient was on IV fluid bolus and was started on IV fluids and IV insulin infusion. Sepsis was suspected and patient was started on empiric antibiotics. Patient had poor IV access and a central venous catheter was placed. She was hypotensive despite IV fluids and was started on vasopressors This morning patient is drowsy but arousable and oriented. She continues to be poor historian and slow to respond but denies any pain shortness a
[2023-04-19] MEDS: INSULIN GLARGINE (*BKC) 100 UNITS/ML 10 UNITS SUB-Q ×3 (09:16→20:32)
[2023-04-19 09:35] LABS: Glucose Point of Care 283 mg/dl (65-105)
[2023-04-19 10:38] LABS: Glucose Point of Care 328 mg/dl (65-105)
[2023-04-19] MEDS: SODIUM CHLORIDE 0.45% 1,000 ML 75 ML IV CONT ×2 (10:43→22:27)
[2023-04-19 11:12] LABS: Anion Gap 9 mmol/L (8-16); Blood Urea Nitrogen 32 mg/dL (7-17); Calcium 8.1 mg/dL (8.4-10.2); Carbon Dioxide 17 mmol/L (22-30); Chloride 114 mmol/L (98-107); Estimated CRCL calculation 66 ml/min; Estimated Glomerular Filt Rate 60; Glucose 329 mg/dL (65-110); Potassium 4.2 mmol/L (3.4-5.0); Sodium 140 mmol/L (137-145)
[2023-04-19] MEDS: PIPERACILLN/TAZ 3.375GM/NS50ML 3.375 GM/50 ML BAG IVPB ×3 (11:43→23:22)
[2023-04-19 11:55] LABS: Glucose Point of Care 292 mg/dl (65-105)
[2023-04-19] MEDS: INSULIN ASPART (*BKC) 100 UNITS/ML SUB-Q ×2 (13:06→20:32)
[2023-04-19 13:16] LABS: Glucose Point of Care 293 mg/dl (65-105)
[2023-04-19 15:51] LABS: Anion Gap 12 mmol/L (8-16); Blood Urea Nitrogen 25 mg/dL (7-17); Calcium 8.3 mg/dL (8.4-10.2); Carbon Dioxide 16 mmol/L (22-30); Chloride 110 mmol/L (98-107); Estimated CRCL calculation 72 ml/min; Estimated Glomerular Filt Rate > 60; Glucose 357 mg/dL (65-110); Potassium 4.1 mmol/L (3.4-5.0); Sodium 138 mmol/L (137-145)
[2023-04-19 17:24] LABS: Glucose Point of Care 389 mg/dl (65-105)
[2023-04-19] MEDS: INSULIN HUMAN REGULAR (*BKC) 100 UNITS/ML 10 UNITS IV PUSH (18:25)
[2023-04-19 20:18] LABS: Anion Gap 10 mmol/L (8-16); Blood Urea Nitrogen 21 mg/dL (7-17); Calcium 8.6 mg/dL (8.4-10.2); Carbon Dioxide 19 mmol/L (22-30); Chloride 109 mmol/L (98-107); Estimated CRCL calculation 79 ml/min; Estimated Glomerular Filt Rate > 60; Glucose 276 mg/dL (65-110); Potassium 3.7 mmol/L (3.4-5.0); Sodium 138 mmol/L (137-145)
--- NOTE | 2023-04-19 21:59 | PC.NURSE ---
The patient's mother Karen called and was updated on her condition.
[2023-04-19] MEDS: SODIUM CHLORIDE 0.9% IV 1,000 ML 999 ML IV CONT (22:27)
[2023-04-19] MEDS: METOCLOPRAMIDE HCL INJ 10 MG/2 ML VIAL IV PUSH (22:28)
[2023-04-20] VITALS: BP 118/83; PULSE 109; PULSE 110; RESP 28; TEMP 37.7; O2SAT 98
[2023-04-20] MEDS: INSULIN ASPART (*BKC) 100 UNITS/ML SUB-Q ×2 (00:31→08:58)
[2023-04-20 00:36] LABS: Glucose Point of Care 241 mg/dl (65-105)
[2023-04-20 04:00] VITALS: PULSE 105
[2023-04-20 04:15] LABS: Hematocrit 31.8 % (37.0-47.0); Hemoglobin 10.5 g/dL (12.0-15.0); Mean Corpuscular Hemoglobin 28.5 pg (26-34); Mean Corpuscular Volume 86.4 fl (80-100); Mean Platelet Volume 8.6 fl (7.4-10.4); Platelet Count Result 231 k/mm3 (150-375); Red Blood Count 3.68 M/mm3 (4.2-5.4); Red Cell Distribution Width 14.9 % (11.5-14.5); White Blood Count 18.4 K/mm3 (4.5-10.0)
[2023-04-20 04:26] LABS: Anion Gap 9 mmol/L (8-16); Blood Urea Nitrogen 14 mg/dL (7-17); Calcium 8.4 mg/dL (8.4-10.2); Carbon Dioxide 21 mmol/L (22-30); Chloride 106 mmol/L (98-107); Estimated CRCL calculation 88 ml/min; Estimated Glomerular Filt Rate > 60; Glucose 181 mg/dL (65-110); Magnesium 1.7 mg/dL (1.6-2.3); Potassium 3.6 mmol/L (3.4-5.0); Sodium 136 mmol/L (137-145)
[2023-04-20] MEDS: PIPERACILLN/TAZ 3.375GM/NS50ML 3.375 GM/50 ML BAG IVPB (06:02)
[2023-04-20] MEDS: CENTRAL LINE FLUSH 10 ML IV PUSH (06:02)
[2023-04-20 07:44] LABS: Glucose Point of Care 246 mg/dl (65-105)
[2023-04-20 07:58] VITALS: BP 136/99; PULSE 107; RESP 22; TEMP 37.4; O2SAT 98
[2023-04-20 08:00] VITALS: PULSE 105
[2023-04-20] MEDS: INSULIN GLARGINE (*BKC) 100 UNITS/ML 10 UNITS SUB-Q (08:58)
--- NOTE | 2023-04-20 11:46 | PM.DS ---
DS: Admitting Diagnosis Discharge Date 04/20/23 Admitting Diagnosis Altered mental status DS: Discharge Diagnosis Discharge Diagnosis (1) Acute metabolic encephalopathy: Code(s): G93.41 - Metabolic encephalopathy Status: Acute Assessment and Plan: Acute metabolic encephalopathy likely secondary to DKA which is improving now as patient is now drowsy but arousable and AO x3 Her TSH was normal Head CT was unremarkable (2) DKA (diabetic ketoacidosis): Qualifiers: Diabetes mellitus complication detail: with coma Diabetes mellitus type: type 1 Qualified Code(s): E10.11 - Type 1 diabetes mellitus with ketoacidosis with coma Code(s): E11.10 - Type 2 diabetes mellitus with ketoacidosis without coma Status: Acute Assessment and Plan: Patient was treated with iVF bolus and infusion Patient was started on insulin infusion and Q1H glucose monitoring Serial labs were done Patient's anion gap has now closed and patient denies any nausea vomiting abdominal pain I will transition patient to subcutaneous insulin with Lantus and sliding scale Start diabetic diet and advance as tolerated (3) Sepsis: Code(s): A41.9 - Sepsis, unspecified organism Status: Acute Assessment and Plan: Patient met criteria for sepsis although it could be SIRS from DKA Blood and urine cultures have been sent although UA did not suggest UTI CT scan also does not cease show any objective sign of infection I will discontinue vancomycin but continue Zosyn for another 24 hours until culture results are back and deescalate (4) Shock: Code(s): R57.9 - Shock, unspecified Status: Acute Assessment and Plan: Patient was hypotensive on presentation this is likely secondary to hypovolemia although sepsis is a distant possibility Improved with IV fluids and now Levophed has been weaned off Monitor closely (5) Acute dehydration: Code(s): E86.0 - Dehydration Status: Acute Assessment and Plan: Improved with IV fluids Continue IV fluids but at decreased rate Advance diet Plan DVT prophylaxis -SCDs Nutrition -diabetic diet Code Status - Full Code Total Critical Care Time - 30minutes Due to a high probability of clinically significant, life threatening deterioration, the patient required my highest level of preparedness to intervene emergently and I personally spent this critical care time directly and personally managing the patient. This critical care time included obtaining a history; examining the patient; pulse oximetry; ordering and review of studies; arranging urgent treatment with development of a management plan; evaluation of patient's response to treatment; frequent reassessment; and discussions with other providers. It was exclusive of separately billable procedures and treating other patients and teaching time. Please see Assessment and Plan section and the rest of the note for further information on patient assessment and treatment DS: Summary Hospital Course Hospital Course: 27-year-old female with history of type 1 diabetes is presenting with altered mental status and found to be in DKA. She is admitted to the ICU with DKA protocol and started on antibiotics due to leukocytosis. No source of infection noted, all symptoms improved. Home Lantus dose was increased and she was discharged in stable condition with close outpatient follow-up. She was sent on antibiotics to complete a 7 day course for possible underlying infection. Please see above and med rec for details. Time Spent with Patient Time attestation: Total time spent providing and/or coordinating discharge services: Exam Narrative: General: No acute distress, alert and oriented per baseline HEENT: Atraumatic, normocephalic, mucous membranes moist CV: Regular rate and rhythm, S1, S2 Lungs: Clear to auscultation bilaterally, no rales or crackles noted, no wheezes, good air entry Abdomen:
[2023-04-20 11:55] LABS: Glucose Point of Care 173 mg/dl (65-105)
== END 2023-04-20 15:23 | disposition home or self-care (01) | DRG 420 ==
LOC: ANHED 22:02 → ANHICU 22:19
PROVIDERS: Internal Medicine; Physician Assistant; Admitting Provider Internal Medicine; Emergency Provider Emergency Medicine; Visit Provider Internal Medicine
DX: E10.10 Type 1 diabetes mellitus with ketoacidosis without coma (principal); R65.10 Systemic inflammatory response syndrome (SIRS) of non-infectious origin without acute organ dysfunction; R57.1 Hypovolemic shock; Z20.822 Contact with and (suspected) exposure to COVID-19; G93.41 Metabolic encephalopathy; E86.0 Dehydration
CPT/HCPCS: 36415; 36556; 36600; 70450; 71250; 74176; 80048; 80053; 80307; 81003; 81025; 82010; 82550; 82805; 82948; 83036; 83605; 83735; 84100; 84443; 85025; 85027; 87040; 87637; 87641; 93005; 96361; 96365; 96366; 96367; 99285; A9270; C1751; G0378; J1815; J2405; J2543; J2765; J3370; J3480; J7030

== ENCOUNTER 2023-05-13 09:26 | Emergency (ER) | payer MEDICAID, SELFPAY ==
[2023-05-13] VITALS (11 sets, daily range): BP systolic 115–131; BP diastolic 74–90; PULSE 83–99; RESP 14–18; TEMP 36.4–37.1; O2SAT 95–100
--- NOTE | ~2023-05-13 | CT_ITS ---
EXAMINATION: CTA brain carotid DATE: 05/13/2023 10:08 INDICATION: Right hemiparesis. TECHNIQUE: Computed tomographic angiography (CTA) of the head was performed without and with 100 mL O mnipaque-350 intravenous contrast. CTA of the neck was performed with intravenous contrast. Automated exposure control and iterative reconstruction technique were employed. The dose-length product was 1 551.41 mGy-cm. Maximum intensity projection and volume rendered 3D-reconstructions were created by pola ho technologist on a separate workstation. COMPARISON: Head CT 04/18/2023 FINDINGS: HEAD CTA: There is no intracranial hemorrhage, acute infarction, or abnormal intracranial mass lesion . The ventricles are normal in size. There are likely changes of ocular lens replacement surgeries. T here is mild mucosal thickening in the paranasal sinuses. The mastoid air cells are normal. The verte bral arteries are codominant. There is no significant stenosis of basilar artery or the posterior cer ebral arteries. There is no significant stenosis of intracranial internal carotid arteries or anterio r or middle cerebral arteries. Anterior communicating artery is normal. The posterior communicating a rteries are normal. There is no aneurysm. NECK CTA: There are no pathologically enlarged lymph nodes. There is no significant stenosis of the v ertebral arteries. The cervical carotid arteries are normal. There is 0% stenosis of the proximal rig ht internal carotid artery relative to normal distal artery lumen diameter (NASCET criteria). There i s 0% stenosis of the proximal left internal carotid artery relative to normal distal artery lumen jordyn meter. There is kyphosis of cervical spine. IMPRESSION: 1. Normal brain. No aneurysm or significant intracranial arterial stenosis. 2. 0% stenosis of the proximal internal carotid arteries relative to normal distal artery lumen diame ters (NASCET criteria). Reviewed, dictated and finalized at location A. N SHAMPOO ASSISTANT IMPRESSION: 1. Normal brain. No aneurysm or significant intracranial arterial stenosis. 2. 0% stenosis of the proximal internal carotid arteries relative to normal dis suri artery lumen diameters (NASCET criteria).
--- NOTE | ~2023-05-13 | XR_ITS ---
EXAMINATION: XR chest 1V INDICATION: Right-sided weakness TECHNIQUE: AP view of the chest is obtained. COMPARISON: 04/18/2023 FINDINGS: The lungs are free of acute opacities. No pleural effusion or pneumothorax. The cardiomedia stinal silhouette is normal. IMPRESSION: 1. No acute cardiopulmonary abnormality. Reviewed, dictated and finalized at location A. ER OPENER
[2023-05-13 09:35] LABS: Glucose Point of Care 38 mg/dl (65-105)
--- NOTE | 2023-05-13 09:38 | ECG_ITS ---
Measurements Intervals [place] Rate: 80 P: 129 AK: 135 QRS: 85 QRSD: 76 T: 143 QT: 355 QTc: 411 Interpretive Statements SINUS RHYTHM LIMB LEAD REVERSAL LEFT ATRIAL ENLARGEMENT MINIMAL Q WAVES- INFERIOR LEADS BORDERLINE ECG COMPARED TO ECG 04/18/2023 18:32:33 SINUS RHYTHM NOW PRESENT Electronically Signed On 05-13-2023 11:44:46 [employer] ENGINE SPECIALIST by Amadeo Silva D.O.
[2023-05-13] MEDS: GLUCOSE ORAL GEL 15 GM OF GLUCSE IN 37.5 GM TUBE (09:42)
[2023-05-13] MEDS: DEXTROSE 50% 25 GM/50 ML SYRINGE IV PUSH (09:48)
[2023-05-13 09:58] LABS: Basophils Percent Auto 0.3 % (0.2-1.2); Eosinophils Percent Auto 0.3 % (0-4.4); Hematocrit 39.9 % (37.0-47.0); Hemoglobin 12.9 g/dL (12.0-15.0); Immature Granulocyte Absolute 0.04 K/mm3 (0.00-0.031); Immature Granulocyte Percent A 0.5 % (0-0.5); Lymphocytes Absolute Auto 1.32 K/mm3 (0.9-3.2); Lymphocytes Percent Auto 17.6 % (18.3-44.2); Mean Corpuscular HGB Conc 32.3 g/dl (32-36); Mean Corpuscular Hemoglobin 28.9 pg (26-34); Mean Corpuscular Volume 89.3 fl (80-100); Mean Platelet Volume 9.1 fl (7.4-10.4); Monocytes Absolute Auto 0.6 K/mm3 (0.1-0.6); Monocytes Percent Auto 8.2 % (2.6-8.5); Neutrophils Absolute Auto 5.5 K/mm3 (1.3-6.7); Neutrophils Percent Auto 73.1 % (45.5-73.1); Platelet Count Result 380 k/mm3 (150-375); Red Blood Count 4.47 M/mm3 (4.2-5.4); Red Cell Distribution Width 14.3 % (11.5-14.5); White Blood Count 7.5 K/mm3 (4.5-10.0)
[2023-05-13 10:00] LABS: Estimated Glomerular Filt Rate > 60
[2023-05-13 10:08] LABS: Prothrombin Time 13.4 Seconds (11.1-14.7)
[2023-05-13 10:09] LABS: Partial Thromboplastin Time 27.7 SECONDS (22.3-36.8)
[2023-05-13 10:12] LABS: Glucose Point of Care 215 mg/dl (65-105)
[2023-05-13 10:12] LABS: Alanine Aminotransferase 16 U/L (6-35); Albumin Level 4.5 g/dL (3.5-5.1); Alkaline Phosphatase 70 U/L (38-126); Anion Gap 10 mmol/L (8-16); Aspartate Amino Transferase 24 U/L (14-36); Bilirubin,Total 0.5 mg/dL (0.2-1.3); Blood Urea Nitrogen 9 mg/dL (7-17); Calcium 9.5 mg/dL (8.4-10.2); Carbon Dioxide 28 mmol/L (22-30); Chloride 104 mmol/L (98-107); Estimated Glomerular Filt Rate > 60; Glucose 42 mg/dL (65-110); Potassium 3.9 mmol/L (3.4-5.0); Sodium 142 mmol/L (137-145)
[2023-05-13 10:12] LABS: Glucose Point of Care 42 mg/dl (65-105)
[2023-05-13 10:20] LABS: Troponin I < 0.012 ng/mL (0.000-0.034)
--- NOTE | 2023-05-13 10:48 | ED.NEUROSD ---
HPI - Neuro Symptoms/Deficit General Chief Complaint: Suspected CVA Stated Complaint: LOW BLOOD SUGAR/SEIZURES,R SIDE WEAK Time Seen by Provider: 05/13/23 09:35 History of Present Illness HPI Narrative: Patient is a 27-year-old female who presents to the ER with reports of stroke-like symptoms. Patient has paralysis of the right upper and lower extremity as well as right facial droop. Has been reports patient has been having frequent low blood sugars at home and has had multiple seizures over the last week. Reports checking blood sugar today and it was 68. No history CVA or clotting disorder. Patient was recently hospitalized for elevated blood sugars in the last month. Related Data Home Medications Medication Instructions Recorded Confirmed insulin lispro 100 unit/mL See Rx Instructions .Route .COMPLEX 04/18/23 04/18/23 subcutaneous solution Allergies Allergy/AdvReac Type Severity Reaction Status Date / Time No Known Allergies Allergy Unknown Verified 09/29/22 08:32 Review of Systems Review of Systems: All systems reviewed & are unremarkable except as noted in HPI and below Constitutional: Constitutional: Reports no additional constitutional complaints Cardiovascular: Cardiovascular: Reports no additional cardiovascular complaints Respiratory: Respiratory: Reports no additional respiratory complaints Gastrointestinal: Gastrointestinal: Reports no additional gastrointestinal complaints Neurologic: Denies headache(s), Reports focal weakness, Denies Sensory deficit (Neuro) and Reports other ( Seizures) [facility] Past Medical History Medical History Abdominal pain Chronic abdominal pain Anxiety Finger fracture Gastric ulcer On recent EGD at [facility] Type 1 diabetes mellitus Surgical History Surgical History Hx of section 2017 Hx of dilation and curettage 2019 following missed ab Hx of tonsillectomy Family History Family History Mother Family history of anemia Father Unknown family medical history Other Family history of arthritis Family history of hepatitis Family history of liver disease Social History Social History Smoking status: Never smoker Alcohol intake: former Substance use: never Substance use type: does not use Do You Feel Safe in your Home?: Yes Lack of Transportation: No Lack of Food: Never True Current Housing: I Have Housing Concerned About Future Housing: No Difficulty Paying Gas/Electric Bills: No Difficulty Paying for Meds: No Currently Unemployed: No Education: Associate Degree Difficulty w/ Childcare or Family Care: No Spiritual care concerns: No Agree to blood products: Yes Exam Narrative: GENERAL: Well-appearing, well-nourished, and in no acute distress. HEAD: Normocephalic, atraumatic. EYES: PERRL and EOMI. ENT: Mucous membranes moist. CHEST: Clear to auscultation. No respiratory distress. HEART: Regular rate and rhythm. Normal peripheral pulses. ABDOMEN: Soft, nontender, nondistended. EXTREMITIES: Normal range of motion. No edema. SKIN: Warm, dry, no rash. NEURO: paralysis of right upper and right lower extremities. There is right-sided facial droop. Sensation intact. No slurred speech. No expressive aphasia. Alert and oriented x3. reports vision is intact. PSYCH: Normal mood and affect. Course Course Emergency Course: Symptoms resolved with oral glucose after was found patient's blood sugar was in the 30s. Discussed admission with patient and significant other. Accepted by hospitalist. 1347: Patient now reporting she has not wished hospital. I have interviewed and examined the patient. I have determined that the patient has the capacity to understand the information relevant t
[2023-05-13 12:04] LABS: Glucose Point of Care 170 mg/dl (65-105)
[2023-05-13 12:08] LABS: Appearance Urine Clear (Clear); Bilirubin Urine Negative (Negative); Blood Urine Negative (Negative); Color Urine Yellow (Yellow); Glucose Urine UA Trace mg/dL (Negative); Ketones Urine 1+ mg/dL (Negative); Leukocyte Esterase Ur Negative LEU/UL (Negative); Nitrate Urine Negative (Negative); Protein Urine Negative (Negative); Urobilinogen Urine 0.2 mg/dL (<2.0)
[2023-05-13 12:16] LABS: Add Urine Microscopic? NO; Specific Grav Ur 1.088 (1.001-1.035)
[2023-05-13 12:22] LABS: Amphetamine Screen Urine Negative (Negative); Barbiturate Screen Urine Negative (Negative); Benzodiazepines Screen Urine Negative (Negative); Cannabinoid Screen Urine Negative (Negative); Cocaine Screen Urine Negative (Negative); Methadone Screen Urine Negative (Negative); Opiate Screen Urine Negative (Negative); Phencyclidine Screen Urine Negative (Negative)
--- NOTE | 2023-05-13 13:29 | PM.IMHP ---
H&P: HPI History of Present Illness Date/Time: 05/13/23 13:29 Chief Complaint: low blood sugar, seizures and right-sided weakness [facility] Past Medical History Medical History Abdominal pain Chronic abdominal pain Anxiety Finger fracture Gastric ulcer On recent EGD at [facility] Type 1 diabetes mellitus Surgical History Surgical History Hx of section 2017 Hx of dilation and curettage 2019 following missed ab Hx of tonsillectomy Family History Family History Mother Family history of anemia Father Unknown family medical history Other Family history of arthritis Family history of hepatitis Family history of liver disease Social History Social History Smoking status: Never smoker Alcohol intake: former Substance use: never Substance use type: does not use Do You Feel Safe in your Home?: Yes Lack of Transportation: No Lack of Food: Never True Current Housing: I Have Housing Concerned About Future Housing: No Difficulty Paying Gas/Electric Bills: No Difficulty Paying for Meds: No Currently Unemployed: No Education: Associate Degree Difficulty w/ Childcare or Family Care: No Spiritual care concerns: No Agree to blood products: Yes Meds Home Medications and Allergies Home Medications Medication Instructions Recorded Confirmed Type insulin lispro 100 unit/mL See Rx Instructions .Route .COMPLEX 04/18/23 04/18/23 History subcutaneous solution amoxicillin 875 mg-potassium 1 tablet PO Q12H 6 days #12 tabs 04/20/23 Rx clavulanate 125 mg tablet insulin glargine 100 unit/mL 10 unit (0.1 mL) subcut Q12HR 1 04/20/23 Rx subcutaneous solution (Lantus month #6 mL U-100 Insulin) ondansetron 4 mg disintegrating 4 mg PO Q6H PRN nausea and 04/20/23 Rx tablet vomiting #10 tabs Allergies Allergy/AdvReac Type Severity Reaction Status Date / Time No Known Allergies Allergy Unknown Verified 09/29/22 08:32 Vital Signs Vital Signs - 24 hr 05/13/23 09:55 05/13/23 10:01 05/13/23 10:31 Temperature 97.6 F Pulse Rate 95 95 99 Respiratory Rate 18 18 18 Blood Pressure 116/74 116/74 Pulse Oximetry 100 99 95 05/13/23 10:38 05/13/23 11:00 05/13/23 11:32 Temperature 98.0 F 97.8 F 97.7 F Pulse Rate 92 91 89 Respiratory Rate 18 16 18 Blood Pressure 131/90 115/75 115/75 Pulse Oximetry 100 97 100 05/13/23 12:15 05/13/23 12:45 Temperature 97.7 F 98.8 F Pulse Rate 89 83 Respiratory Rate 15 14 Blood Pressure 120/81 118/84 Pulse Oximetry 100 100 H&P: Results Labs Labs: Short CBC 05/13/23 Range/Units 09:50 WBC 7.5 (4.5-10.0) K/mm3 Hgb 12.9 (12.0-15.0) g/dL Hct 39.9 (37.0-47.0) % Plt Count 380 H D (150-375) k/mm3 BMP 05/13/23 05/13/23 09:50 09:58 Sodium 142 Potassium 3.9 Chloride 104 Carbon Dioxide 28 BUN 9 D Creatinine 0.50 L 0.50 L Glucose 42 L* Calcium 9.5 Cardiac Enzymes 05/13/23 Range/Units 09:50 Troponin I < 0.012 (0.000-0.034) ng/mL Liver Function 05/13/23 Range/Units 09:50 Total Bilirubin 0.5 (0.2-1.3) mg/dL AST 24 (14-36) U/L ALT 16 (6-35) U/L Alkaline Phosphatase 70 (38-126) U/L Albumin 4.5 (3.5-5.1) g/dL Urine 05/13/23 Range/Units 11:59 Urine Color Yellow (Yellow) Urine Appearance Clear (Clear) Urine pH 7.0 (5.0-9.0) Ur Specific [place] 1.088 H (1.001-1.035) Urine Protein Negative (Negative) mg/dL Urine Glucose (UA) Trace H (Negative) mg/dL
[2023-05-13 13:53] LABS: Glucose Point of Care 210 mg/dl (65-105)
== END 2023-05-13 14:02 | disposition left against medical advice (07) ==
LOC: ANHED 09:52 → ANH3MED 13:53 → ANHED 14:30
PROVIDERS: Internal Medicine; Emergency Provider Emergency Medicine
DX: E10.649 Type 1 diabetes mellitus with hypoglycemia without coma (principal); R53.1 Weakness; R94.31 Abnormal electrocardiogram [ECG] [EKG]; Z79.4 Long term (current) use of insulin
CPT/HCPCS: 36415; 70496; 70498; 71045; 80053; 80307; 81003; 82948; 84484; 85025; 85610; 85730; 93005; 96374; 99284; A9270; Q9967

== ENCOUNTER 2023-05-28 18:37 | Emergency (ER) | payer MEDICAID, SELFPAY ==
[2023-05-28] VITALS (19 sets, daily range): BP systolic 105–137; BP diastolic 52–100; PULSE 92–122; RESP 15; O2SAT 94–100
--- NOTE | ~2023-05-28 | CT_ITS ---
EXAMINATION: CT abdomen pelvis w con DATE: 05/28/2023 21:46 INDICATION: Bilateral flank pain. Vomiting. TECHNIQUE: Computed tomography (CT) of the abdomen and pelvis was performed with 100 mL Omnipaque 350 intravenous contrast. Automated exposure control and iterative reconstruction technique were employe d. The dose-length product was 435.42 mGy-cm. COMPARISON: CT abdomen and pelvis 04/18/2023 FINDINGS: The visualized portions of the lung bases are clear without pneumonia or pleural effusion. The heart size is normal. No pericardial effusion. The liver, spleen, gallbladder, pancreas, adrenal glands, and left kidney are normal. There is a 2.7 cm peripelvic cyst in right kidney. There are no d ilated loops of bowel. The appendix is normal. There are no pathologically enlarged lymph nodes. Ther e is no free intraperitoneal fluid. The bones are unremarkable. IMPRESSION: 1. No etiology for the patient's symptoms. Reviewed, dictated and finalized at location E. [place] BANKER
[2023-05-28 19:33] LABS: Glucose Point of Care 160 mg/dl (65-105)
--- NOTE | 2023-05-28 20:05 | ED.GENADULT ---
HPI - General Adult General Chief complaint: Nausea/Vomiting/Diarrhea Stated complaint: n/v, lower back pain diabetic Time Seen by Provider: 05/28/23 19:27 Source: patient and family Mode of arrival: ambulatory Limitations: no limitations History of Present Illness HPI narrative: this is a 27-year-old female with history of insulin-dependent diabetes who presents to the ED with chief complaint of nausea and vomiting beginning today. reports multiple episodes of emesis without any GI bleeding symptoms. She is accompanied by her fiance who is providing most of the history . Patient not answering most of my questions. She does endorse diarrhea. He reports she has an insulin pump and states that her sugars have been high the last few days. there concern for possible DKA as she has been in this multiple times. She has felt unwell and is not taking in much food or fluids. She does for bilateral flank pain but denies abdominal pain. denies any documented fevers or chills. Joanne notes that her sugars have been in the 200s in the started watching them closer and paying more attention. Related Data Home Medications Medication Instructions Recorded Confirmed insulin lispro 100 unit/mL See Rx Instructions .Route .COMPLEX 04/18/23 04/18/23 subcutaneous solution Allergies Allergy/AdvReac Type Severity Reaction Status Date / Time No Known Allergies Allergy Unknown Verified 05/28/23 19:49 Review of Systems Review of Systems: All systems as dictated in HPI [facility] Past Medical History Medical History Abdominal pain Chronic abdominal pain Anxiety Finger fracture Gastric ulcer On recent EGD at [facility] Type 1 diabetes mellitus Surgical History Surgical History Hx of section 2017 Hx of dilation and curettage 2019 following missed ab Hx of tonsillectomy Family History Family History Mother Family history of anemia Father Unknown family medical history Other Family history of arthritis Family history of hepatitis Family history of liver disease Social History Social History Smoking status: Never smoker Alcohol intake: former Substance use: never Substance use type: does not use Do You Feel Safe in your Home?: Yes Lack of Transportation: No Lack of Food: Never True Current Housing: I Have Housing Concerned About Future Housing: No Difficulty Paying Gas/Electric Bills: No Difficulty Paying for Meds: No Currently Unemployed: No Education: Associate Degree Difficulty w/ Childcare or Family Care: No Spiritual care concerns: No Agree to blood products: Yes Exam Narrative: GENERAL: appears ill. Only answering some of my questions. HEAD: Normocephalic, atraumatic. EYES: PERRLA and EOMI. ENT: Nares clear, no rhinorrhea or epistaxis. Mucous membranes moist. Oropharynx without tonsillar hypertrophy exudate or other lesions. NECK: Supple. No adenopathy or masses. CHEST: No respiratory distress. Clear to auscultation. No wheezes rales or rhonchi HEART: Regular rate and rhythm. No murmur heard. Normal peripheral pulses. ABDOMEN: Soft, nontender, nondistended, normal active bowel sounds. MSK: Normal range of motion. No edema. SKIN: Warm, dry, no rash. NEURO: Alert and oriented x4. No focal deficits. PSYCH: Normal mood and affect. Course Vital Signs Vital signs: Vital Signs Pulse Rate 122 H 05/28/23 19:12 Respiratory Rate 15 05/28/23 19:12 Blood Pressure 137/100 H 05/28/23 19:12 Pulse Oximetry 98 05/28/23 19:12 Pulse Rate 92 05/28/23 21:01 Respiratory Rate 15 05/28/23 19:12 Blood Pressure 105/64 05/28/23 23:45 Pulse Oximetry 100 05/29/23 00:02 Medical Decision Making HEATHER Bowman
[2023-05-28] MEDS: SODIUM CHLORIDE 0.9% IV 1,000 ML 999 ML IV CONT ×2 (20:06→21:08)
[2023-05-28] MEDS: ONDANSETRON INJ 4 MG/2 ML VIAL IV PUSH (20:07)
[2023-05-28 20:10] LABS: Basophils Percent Auto 0.2 % (0.2-1.2); Hematocrit 42.3 % (37.0-47.0); Hemoglobin 14.6 g/dL (12.0-15.0); Immature Granulocyte Absolute 0.06 K/mm3 (0.00-0.031); Immature Granulocyte Percent A 0.5 % (0-0.5); Lymphocytes Percent Auto 13.8 % (18.3-44.2); Mean Corpuscular HGB Conc 34.5 g/dl (32-36); Mean Corpuscular Hemoglobin 29.2 pg (26-34); Mean Corpuscular Volume 84.6 fl (80-100); Mean Platelet Volume 9.1 fl (7.4-10.4); Monocytes Absolute Auto 1.2 K/mm3 (0.1-0.6); Monocytes Percent Auto 9.5 % (2.6-8.5); Neutrophils Absolute Auto 9.4 K/mm3 (1.3-6.7); Platelet Count Result 428 k/mm3 (150-375); Red Cell Distribution Width 14.5 % (11.5-14.5); White Blood Count 12.3 K/mm3 (4.5-10.0)
[2023-05-28 20:34] LABS: Lactic Acid Reflex 1.4 mmol/L (0.7-2.0)
[2023-05-28 20:36] LABS: Alanine Aminotransferase 16 U/L (6-35); Alkaline Phosphatase 78 U/L (38-126); Anion Gap 14 mmol/L (8-16); Aspartate Amino Transferase 22 U/L (14-36); Bilirubin,Total 1.6 mg/dL (0.2-1.3); Blood Urea Nitrogen 24 mg/dL (7-17); Calcium 10.2 mg/dL (8.4-10.2); Carbon Dioxide 22 mmol/L (22-30); Chloride 104 mmol/L (98-107); Estimated CRCL calculation 104 ml/min; Estimated Glomerular Filt Rate > 60; Glucose 152 mg/dL (65-110); Lipase 30 U/L (23-300); Potassium 3.5 mmol/L (3.4-5.0); Sodium 140 mmol/L (137-145)
[2023-05-28 21:26] LABS: Beta HCG Quantitative < 2.39 mIU/ML
[2023-05-28 22:25] LABS: Glucose Point of Care 169 mg/dl (65-105)
[2023-05-28 22:55] LABS: Appearance Urine Clear (Clear); Bacteria Urine None Seen /hpf; Bilirubin Urine Negative (Negative); Blood Urine 2+ (Negative); Color Urine Yellow (Yellow); Glucose Urine UA Trace mg/dL (Negative); Ketones Urine 3+ mg/dL (Negative); Leukocyte Esterase Ur Negative LEU/UL (Negative); Nitrate Urine Negative (Negative); Non Pathogenic Casts 0-2; Protein Urine 1+ mg/dL (Negative); RBC Urine 0-2 /hpf (0-2); Squamous Epithelial Cell Urine None seen /hpf (Few); Urobilinogen Urine 0.2 mg/dL (<2.0); WBC Urine 0-5 /hpf; pH Urine 6.5 (5.0-9.0)
[2023-05-28 23:05] LABS: Add Urine Microscopic? YES
[2023-05-28] MEDS: SODIUM CHLORIDE 0.9% IV 500 ML 999 ML IV CONT (23:07)
[2023-05-28] MEDS: METOCLOPRAMIDE HCL INJ 10 MG/2 ML VIAL IV PUSH (23:22)
[2023-05-29] VITALS: O2SAT 100
[2023-05-29 00:02] VITALS: O2SAT 100
== END 2023-05-29 01:40 | disposition home or self-care (01) ==
PROVIDERS: Emergency Provider Physician Assistant
DX: K52.9 Noninfective gastroenteritis and colitis, unspecified (principal); E10.9 Type 1 diabetes mellitus without complications; Z79.4 Long term (current) use of insulin; Z96.41 Presence of insulin pump (external) (internal)
CPT/HCPCS: 36415; 74177; 80048; 80076; 81001; 82948; 83605; 83690; 84702; 85025; 96361; 96374; 96375; 99284; J2405; J2765; J7030; J7040; Q9967

== ENCOUNTER 2023-12-27 17:49 | Inpatient (IN) | payer BC, SELFPAY ==
--- NOTE | ~2023-12-27 | XR_ITS ---
Portable chest x-ray Comparison: 05/13/2023 Clinical History: Pneumonia Findings: Lungs are clear, without focal consolidation or pleural effusion. Cardiomediastinal silho uette is stable. Bones and soft tissues are unremarkable. Impression: Normal chest. Reviewed, dictated and finalized at [facility]. Impression: Normal chest.
--- NOTE | ~2023-12-27 | CT_ITS ---
CT of the Abdomen and Pelvis: Indication: Nausea and vomiting Technique: 2.5 mm axial scans were obtained through the abdomen and pelvis following intravenous adm inistration of 100 cc of Omnipaque 350. Dose reduction technique was used on this scan by utilizing a utomated exposure control and iterative reconstruction technique. The dose-length product (DLP) was 7 60.04 mGy-cm. COMPARISON: 05/28/2023 Findings: Scans through the lung bases are unremarkable. The liver, spleen, pancreas, gallbladder, adrenals and left kidney are within normal limits. Possible minimal right hydroureteronephrosis. No evidence of aortic aneurysm. No lymphadenopathy. No bowel obstruction or bowel wall thickening. There is no evidence to suggest acute appendicitis. Images through the pelvis were performed. Urinary bladder unremarkable. No pelvic mass seen. No ascit es. Impression: Possible minimal right hydroureteronephrosis. Correlate for any possibility of recently passed stone. Reviewed, dictated and finalized at [facility]. Impression: Possible minimal right hydroureteronephrosis. Correlate for any possibility of recently passed stone.
[2023-12-27 18:03] VITALS: BP 147/97; PULSE 119; RESP 16; TEMP 36.4; O2SAT 100
--- NOTE | 2023-12-27 18:04 | ED.NAVMDI ---
HPI - Nausea/Vomiting/Diarrhea General Chief complaint: Nausea/Vomiting/Diarrhea <Kita Price PA-C - Last Filed: 12/28/23 09:20> Stated complaint: N/V TYPE 1 DIABETIC <Kita Price PA-C - Last Filed: 12/28/23 09:20> Time Seen by Provider: 12/27/23 18:04 <Kita Price PA-C - Last Filed: 12/28/23 09:20> Focused HPI: this is a 28 year old female that presents to the ER for nausea and vomiting. Ongoing today. She has history of Type 1 DM. GENERAL: Uncomfortable, well-nourished, in no acute distress. HEAD: Normocephalic, atraumatic. CHEST: Clear to auscultation. ?No respiratory distress. HEART: Regular rate and rhythm.? NEURO: ?Alert and oriented x3. Patient screened in triage and initial orders placed.? ?Additional care and disposition to be based upon?diagnostic testing and treatment. <Kita Price PA-C - Last Filed: 12/28/23 09:20> Focused HPI: this is a 28 year old female that presents to the ER for nausea and vomiting. Ongoing today. She has history of Type 1 DM. GENERAL: Uncomfortable, well-nourished, in no acute distress. HEAD: Normocephalic, atraumatic. CHEST: Clear to auscultation. ?No respiratory distress. HEART: Regular rate and rhythm.? NEURO: ?Alert and oriented x3. Patient screened in triage and initial orders placed.? ?Additional care and disposition to be based upon?diagnostic testing and treatment. Agree with triage assessment. Patient admits to history of DKA secondary to her insulin-dependent diabetes mellitus. She states that she noticed her blood glucose level running high today. Denies any urinary symptoms, any fevers or chills at home. <Sapna Elias MD - Last Filed: 12/28/23 05:13> Related Data Home medications: Home Medications Medication Instructions Recorded Confirmed insulin lispro 100 unit/mL See Rx Instructions .Route .COMPLEX 12/28/23 12/28/23 subcutaneous solution <Kita Price PA-C - Last Filed: 12/28/23 09:20> Allergies/Adverse reactions: Allergies Allergy/AdvReac Type Severity Reaction Status Date / Time No Known Allergies Allergy Unknown Verified 12/28/23 05:39 <Kita Price PA-C - Last Filed: 12/28/23 09:20> Review of Systems Review of Systems: All systems are reviewed and are negative unless stated otherwise in the HPI. <Sapna Elias MD - Last Filed: 12/28/23 05:13> All systems reviewed & are unremarkable except as noted in HPI and below <Kita Price PA-C - Last Filed: 12/28/23 09:20> PMFSH Past Medical History Medical History: Medical History Abdominal pain Chronic abdominal pain Anxiety Finger fracture Gastric ulcer On recent EGD at [facility] Type 1 diabetes mellitus <Kita Price PA-C - Last Filed: 12/28/23 09:20> Surgical History Surgical History: Surgical History Hx of section 2017 Hx of dilation and curettage 2019 following missed ab Hx of tonsillectomy <Kita Price PA-C - Last Filed: 12/28/23 09:20> Family History Family History: Family History Mother Family history of anemia Father Unknown family medical history Other Family history of arthritis Family history of hepatitis Family history of liver disease <Kita Price PA-C - Last Filed: 12/28/23 09:20> Social History Social History: Social History Smoking status: Never smoker Alcohol intake: never Substance use: never Substance use type: does not use Do You Feel Safe in your Home?: Yes Lack of Transportation: No Lack of Food: Never True Current Housing: I Have Housing Concerned About Future Housing: No Difficulty Paying Gas/Electric Bills: No Difficulty Paying for Meds: No Currently Unemployed: No
[2023-12-28] MEDS: SODIUM CHLORIDE 0.9% IV 1,000 ML 999 ML IV CONT ×2 (01:07→02:12)
[2023-12-28 01:08] VITALS: BP 138/93; PULSE 100; RESP 18; O2SAT 99
--- NOTE | 2023-12-28 01:10 | PC.NURSE ---
Addendum entered by Loretta Whyte RN 12/28/23 02:31: Pt actively throwing up. Pt refused zofran at this time. Original Note: Pt actively throwing up. Pt refused nausea at this time.
[2023-12-28 01:14] LABS: Basophils Percent Auto 0.2 % (0.2-1.2); Eosinophils Percent Auto 0.1 % (0-4.4); Hematocrit 42.6 % (37.0-47.0); Hemoglobin 14.7 g/dL (12.0-15.0); Immature Granulocyte Absolute 0.04 K/mm3 (0.00-0.031); Immature Granulocyte Percent A 0.4 % (0-0.5); Lymphocytes Absolute Auto 1.05 K/mm3 (0.9-3.2); Lymphocytes Percent Auto 9.7 % (18.3-44.2); Mean Corpuscular HGB Conc 34.5 g/dl (32-36); Mean Corpuscular Hemoglobin 30.3 pg (26-34); Mean Corpuscular Volume 87.8 fl (80-100); Mean Platelet Volume 8.8 fl (7.4-10.4); Monocytes Absolute Auto 0.2 K/mm3 (0.1-0.6); Monocytes Percent Auto 1.9 % (2.6-8.5); Neutrophils Absolute Auto 9.5 K/mm3 (1.3-6.7); Neutrophils Percent Auto 87.7 % (45.5-73.1); Platelet Count Result 383 k/mm3 (150-375); Red Blood Count 4.85 M/mm3 (4.2-5.4); Red Cell Distribution Width 13.6 % (11.5-14.5); White Blood Count 10.8 K/mm3 (4.5-10.0)
[2023-12-28 01:17] LABS: Glucose Point of Care 205 mg/dl (65-105)
[2023-12-28 01:47] LABS: Alanine Aminotransferase 17 U/L (6-35); Albumin Level 4.9 g/dL (3.5-5.1); Alkaline Phosphatase 72 U/L (38-126); Anion Gap 16 mmol/L (4-12); Aspartate Amino Transferase 31 U/L (14-36); Bilirubin,Total 0.8 mg/dL (0.2-1.3); Blood Urea Nitrogen 15 mg/dL (7-17); Calcium 9.6 mg/dL (8.4-10.2); Carbon Dioxide 21 mmol/L (22-30); Chloride 100 mmol/L (98-107); Estimated CRCL calculation 167 ml/min; Estimated Glomerular Filt Rate > 60; Glucose 173 mg/dL (65-110); Lipase 18 U/L (23-300); Magnesium 1.6 mg/dL (1.6-2.3); Phosphorus 2.8 mg/dL (2.5-4.5); Sodium 137 mmol/L (137-145)
[2023-12-28 02:08] LABS: BEDSIDEPREGUCG Negative
[2023-12-28 02:12] LABS: Add Urine Microscopic? YES; Appearance Urine Clear (Clear); Bacteria Urine None Seen /hpf; Bilirubin Urine Negative (Negative); Blood Urine Negative (Negative); Color Urine Yellow (Yellow); Glucose Urine UA 1+ mg/dL (Negative); Ketones Urine 2+ mg/dL (Negative); Leukocyte Esterase Ur Negative LEU/UL (Negative); Nitrate Urine Negative (Negative); Non Pathogenic Casts 0-2; Protein Urine Trace mg/dL (Negative); RBC Urine 0-2 /hpf (0-2); Squamous Epithelial Cell Urine None Seen /hpf (Few); Urobilinogen Urine 0.2 mg/dL (<2.0); WBC Urine 0-5 /hpf (0-3); pH Urine 7.5 (5.0-9.0)
--- NOTE | 2023-12-28 02:12 | PC.NURSE ---
Pt refused benadryl and reglan at this time. EDP aware.
[2023-12-28 02:56] VITALS: BP 136/84; PULSE 110; RESP 18; O2SAT 98
[2023-12-28] MEDS: diphenhydrAMINE HCl INJ 50 MG/ML VIAL 25 MG IV PUSH (03:08)
[2023-12-28] MEDS: METOCLOPRAMIDE HCL INJ 10 MG/2 ML VIAL IV PUSH (03:08)
--- NOTE | 2023-12-28 04:30 | PC.NURSE ---
Pt asked to eat crackers and drink water for PO challenge by 2 RNs. Pt refused. EDP aware.
[2023-12-28 06:00] VITALS: BP 150/72; PULSE 116; RESP 18; TEMP 37; O2SAT 100
--- NOTE | 2023-12-28 06:01 | ADMGEN ---
This patient, Karina Fuchs, was admitted to Medical Room 251-01. Patient/family oriented to hospital policies and general routines including ID bracelet, bed and alarms, visiting hours, pain management, procedures, bathroom and other care routines, personal items, smoking policy, room service/diet, and visiting hours. Information on how to activate the Rapid Response Team has been discussed. Patient/Family are encouraged to report perceived risks to care and to ask questions if they do not understand what they are told or what they should do.
[2023-12-28] MEDS: SODIUM CHLORIDE 0.9% IV 1,000 ML 100 ML IV CONT (06:21)
[2023-12-28 08:21] LABS: Glucose Point of Care 178 mg/dl (65-105)
[2023-12-28 08:29] VITALS: RESP 18; O2SAT 100
[2023-12-28 09:15] VITALS: BMI 34.4
--- NOTE | 2023-12-28 10:47 | PM.IMHP ---
H&P: HPI History of Present Illness Date/Time: 12/28/23 0930 Chief Complaint: Nausea, vomiting and diarrhea Hyperglycemia Narrative: This very pleasant 28-year-old female patient with past medical history type 1 diabetes mellitus, anxiety, gastric ulceration and chronic abdominal pain presented to the emergency room overnight with complaints of having 1 day of nausea, vomiting and diarrhea with hyperglycemia. Upon presentation to the emergency room she was found to be tachycardic and afebrile. She received 2 L of IV fluids, Reglan Benadryl. Labs reviewed demonstrate an anion gap of 16 with elevated beta hydroxybutyrate of 0.9 and ketones in the urine. Patient did not feel as though she could go home and maintain her hydration and was therefore admitted to the hospital for further management. At this time patient appears very tired, lying on her right side in the bed and difficult to obtain information from as she does not appear to want to converse. She does not appear to have any acute signs or symptoms of distress at this time. Review of Systems Review of Systems: All systems reviewed & are unremarkable except as noted in HPI and below PMFSH Past Medical History Medical History Abdominal pain Chronic abdominal pain Anxiety Finger fracture Gastric ulcer On recent EGD at [facility] Type 1 diabetes mellitus Surgical History Surgical History Hx of section 2017 Hx of dilation and curettage 2019 following missed ab Hx of tonsillectomy Family History Family History Mother Family history of anemia Father Unknown family medical history Other Family history of arthritis Family history of hepatitis Family history of liver disease Social History Social History Smoking status: Never smoker Alcohol intake: never Substance use: never Substance use type: does not use Do You Feel Safe in your Home?: Yes Lack of Transportation: No Lack of Food: Never True Current Housing: I Have Housing Concerned About Future Housing: No Difficulty Paying Gas/Electric Bills: No Difficulty Paying for Meds: No Currently Unemployed: No Education: Bachelor's Degree Difficulty w/ Childcare or Family Care: No Spiritual care concerns: No Agree to blood products: Yes Meds Home Medications and Allergies Home Medications Medication Instructions Recorded Confirmed Type insulin lispro 100 unit/mL See Rx Instructions .Route .COMPLEX 12/28/23 12/28/23 History subcutaneous solution Allergies Allergy/AdvReac Type Severity Reaction Status Date / Time No Known Allergies Allergy Unknown Verified 12/28/23 05:39 Vital Signs Vital Signs - 24 hr 12/27/23 18:03 12/28/23 01:08 12/28/23 02:56 Temperature 97.5 F L Pulse Rate 119 H 100 110 H Respiratory Rate 16 18 18 Blood Pressure 147/97 H 138/93 H 136/84 Pulse Oximetry 100 99 98 Oxygen Delivery Room Air 12/28/23 06:00 12/28/23 08:29 Temperature 98.6 F Pulse Rate 116 H Respiratory Rate 18 18 Blood Pressure 150/72 H Pulse Oximetry 100 100 Oxygen Delivery Room Air Exam Const: General: comfortable and no acute distress HENMT: Mouth: Yes moist mucous membranes Eyes: General: appearance normal, both eyes and all related structures Neck: Neck: supple and no JVD Lymphatic: lymphadenopathy not noted Chest: Other: Nontender to palpation. Resp: Effort & Inspection: normal respiratory effort Auscultation: clear to auscultation bilaterally Cardio: Rate: regular rate Rhythm: regular rhythm Heart sounds: no gallops, no murmurs and no rubs GI: Inspection: non-distended GI Palp: Yes Soft to palpation and No Tenderness to palpation present (GI) Auscultation
[2023-12-28 11:53] LABS: Glucose Point of Care 274 mg/dl (65-105)
[2023-12-28 12:00] LABS: Hemoglobin A1C 6.5 % (<5.7)
[2023-12-28] MEDS: INSULIN ASPART (*BKC) 100 UNITS/ML SUB-Q ×2 (12:01→17:11)
[2023-12-28 14:00] VITALS: BP 125/76; PULSE 86; RESP 19; TEMP 36.6; O2SAT 100
[2023-12-28 17:08] LABS: Glucose Point of Care 247 mg/dl (65-105)
[2023-12-28 20:17] LABS: Glucose Point of Care 138 mg/dl (65-105)
[2023-12-28 20:22] VITALS: BP 118/74; PULSE 113; RESP 18; TEMP 36.9; O2SAT 100
[2023-12-28] MEDS: INSULIN GLARGINE (*BKC) 100 UNITS/ML 25 UNITS SUB-Q (21:29)
[2023-12-29 05:52] LABS: Basophils Percent Auto 0.2 % (0.2-1.2); Hematocrit 42.4 % (37.0-47.0); Hemoglobin 14.3 g/dL (12.0-15.0); Immature Granulocyte Absolute 0.07 K/mm3 (0.00-0.031); Immature Granulocyte Percent A 0.4 % (0-0.5); Lymphocytes Percent Auto 9.7 % (18.3-44.2); Mean Corpuscular HGB Conc 33.7 g/dl (32-36); Mean Corpuscular Volume 89.1 fl (80-100); Mean Platelet Volume 8.7 fl (7.4-10.4); Monocytes Absolute Auto 0.9 K/mm3 (0.1-0.6); Neutrophils Absolute Auto 14.8 K/mm3 (1.3-6.7); Neutrophils Percent Auto 84.7 % (45.5-73.1); Platelet Count Result 395 k/mm3 (150-375); Red Blood Count 4.76 M/mm3 (4.2-5.4); Red Cell Distribution Width 13.1 % (11.5-14.5); White Blood Count 17.5 K/mm3 (4.5-10.0)
[2023-12-29 06:00] VITALS: BP 133/87; PULSE 113; RESP 20; TEMP 37; O2SAT 100
[2023-12-29 06:05] LABS: Alanine Aminotransferase 14 U/L (6-35); Albumin Level 4.7 g/dL (3.5-5.1); Alkaline Phosphatase 87 U/L (38-126); Anion Gap 22 mmol/L (4-12); Aspartate Amino Transferase 22 U/L (14-36); Bilirubin,Total 1.7 mg/dL (0.2-1.3); Blood Urea Nitrogen 15 mg/dL (7-17); Calcium 8.8 mg/dL (8.4-10.2); Carbon Dioxide 13 mmol/L (22-30); Chloride 97 mmol/L (98-107); Estimated CRCL calculation 137 ml/min; Estimated Glomerular Filt Rate > 60; Glucose 244 mg/dL (65-110); Magnesium 1.9 mg/dL (1.6-2.3); Sodium 132 mmol/L (137-145)
[2023-12-29 08:18] LABS: Glucose Point of Care 238 mg/dl (65-105)
[2023-12-29] MEDS: INSULIN ASPART (*BKC) 100 UNITS/ML SUB-Q ×3 (10:04→20:41)
[2023-12-29 11:54] LABS: Glucose Point of Care 260 mg/dl (65-105)
[2023-12-29 13:20] LABS: Add Urine Microscopic? YES; Appearance Urine Clear (Clear); Bacteria Urine None Seen /hpf; Bilirubin Urine Negative (Negative); Blood Urine Negative (Negative); Color Urine Yellow (Yellow); Glucose Urine UA 3+ mg/dL (Negative); Ketones Urine 4+ mg/dL (Negative); Leukocyte Esterase Ur Negative LEU/UL (Negative); Nitrate Urine Negative (Negative); Non Pathogenic Casts 0-2; Protein Urine Trace mg/dL (Negative); RBC Urine 0-2 /hpf (0-2); Specific Grav Ur 1.037 (1.001-1.035); Squamous Epithelial Cell Urine Occasional /hpf (Few); Urobilinogen Urine 0.2 mg/dL (<2.0); WBC Urine 0-5 /hpf (0-3); pH Urine 5.5 (5.0-9.0)
[2023-12-29 14:00] VITALS: BP 143/87; PULSE 135; RESP 14; TEMP 36.8; O2SAT 100
[2023-12-29 16:01] LABS: Glucose Point of Care 144 mg/dl (65-105)
[2023-12-29] MEDS: PROMETHAZINE HCL 25 MG/ML AMPUL 12.5 MG IV PUSH ×2 (17:04→22:54)
[2023-12-29] MEDS: SODIUM CHLORIDE 0.9% IV 250 ML 50 ML (17:04)
[2023-12-29 18:28] VITALS: PULSE 119
--- NOTE | 2023-12-29 19:02 | PM.IMPN ---
Progress Note: A&P Assessment and Plan (1) Dehydration: Code(s): E86.0 - Dehydration Status: Acute Assessment and Plan: Possibly symptoms related to DKA. Continue aggressive hydration. Continue to monitor and trend labs and vital signs to ensure rehydration. Diet as tolerated. P.r.n. antiemetics are ordered. (2) Nausea and vomiting: Qualifiers: Vomiting type: unspecified Qualified Code(s): R11.2 - Nausea with vomiting, unspecified Code(s): R11.2 - Nausea with vomiting, unspecified Status: Acute Assessment and Plan: Possibly related to DKA. Continue P.r.n. antiemetics Continue monitor labs and vitals Obtained CT abdomen and pelvis -showing possible minimal right hydroureteronephrosis. Correlate for any possibility passed stone. There is no blood noted in patient's urinalysis, low suspicion for any recent passed stone. (3) Type 1 diabetes mellitus: Qualifiers: Diabetes mellitus complication status: with other specified complication Qualified Code(s): E10.69 - Type 1 diabetes mellitus with other specified complication Code(s): E10.9 - Type 1 diabetes mellitus without complications Status: Acute Assessment and Plan: Acute on chronic. Patient endorses compliance with insulin regimen. High-dose sliding scale is ordered at this time and Lantus 25 units at night. Suspect will need adjustment of dosing during her hospitalization. Blood glucose fairly controlled. music educator consulted. A1c 6.5. Time Spent With Patient Time with patient: 15 - 25 minutes Subjective Date/time seen: 12/29/23 10:02 Review of Systems Review of Systems: Patient admitted with dehydration related to vomiting possibly due to DKA. Patient currently laying in bed and non-verbal on questions asked. Nods that she's in pain but doesn't say where. All systems reviewed & are unremarkable except as noted in HPI and below Exam Const: General: uncomfortable Other: Appears to be in some distress. HENMT: Mouth: Yes moist mucous membranes Eyes: General: appearance normal, both eyes and all related structures Neck: Neck: supple and no JVD Lymphatic: lymphadenopathy not noted Chest: Other: Nontender to palpation. Resp: Effort & Inspection: normal respiratory effort Auscultation: clear to auscultation bilaterally Cardio: Rate: regular rate Rhythm: regular rhythm Heart sounds: no gallops, no murmurs and no rubs GI: Inspection: non-distended Auscultation: normal bowel sounds : Other: Deferred Skin: General skin exam: normal color, no rashes or lesions noted, no erythema, No lesion and No rashes Lesions: no lesions noted Rashes: no rashes noted Wounds: no wounds Neuro: Speech: normal speech Motor exam (neuro): 5/5 motor strength present throughout Sensory Exam: normal sensation Extrem: General: normal to inspection, no edema and no pedal edema Psych: Mental Status: mental status grossly normal Affect: Sad affect present (Flat affect) Objective Data Vital Signs Vital Signs: Vital Signs - 24 hr 12/28/23 20:22 12/28/23 21:24 12/29/23 06:00 Temperature 98.4 F 98.6 F Pulse Rate 113 H 113 H Respiratory Rate 18 20 Blood Pressure 118/74 133/87 Pulse Oximetry 100 100 Oxygen Delivery Room Air 12/29/23 14:00 12/29/23 08:00 12/29/23 18:28 Temperature 98.3 F Pulse Rate 135 H 119 H Respiratory Rate 14 Blood Pressure 143/87 H Pulse Oximetry 100 Oxygen Delivery Room Air Intake/Output Intake/Output: Intake & Output 12/26/23 12/27/23 12/28/23 12/29/23 23:59 23:59 23:59 23:59 Intake Total 2208.3 470 Output Total 1200 Balance 2208.3 -730 Meds/Results Medications: Active Medications Generic Name Dose Route Start Last Admin Trade Name Freq PRN Reason Stop Dose Admin Dextrose 12.5 gm 12/28/23 07:19 Dextrose 50% 25 Gm/50 Ml Syringe IV PUSH PRN PRN Hy
[2023-12-29 20:29] LABS: Glucose Point of Care 231 mg/dl (65-105)
[2023-12-29 20:40] VITALS: BP 149/84; PULSE 98; RESP 20; TEMP 36.7; O2SAT 100
[2023-12-29] MEDS: INSULIN GLARGINE (*BKC) 100 UNITS/ML 25 UNITS SUB-Q (20:40)
[2023-12-30 05:45] LABS: Basophils Percent Auto 0.2 % (0.2-1.2); Hematocrit 41.9 % (37.0-47.0); Hemoglobin 14.4 g/dL (12.0-15.0); Immature Granulocyte Absolute 0.06 K/mm3 (0.00-0.031); Immature Granulocyte Percent A 0.4 % (0-0.5); Lymphocytes Absolute Auto 2.29 K/mm3 (0.9-3.2); Lymphocytes Percent Auto 17.1 % (18.3-44.2); Mean Corpuscular HGB Conc 34.4 g/dl (32-36); Mean Corpuscular Hemoglobin 30.2 pg (26-34); Mean Corpuscular Volume 87.8 fl (80-100); Mean Platelet Volume 8.7 fl (7.4-10.4); Monocytes Percent Auto 7.3 % (2.6-8.5); Platelet Count Result 430 k/mm3 (150-375); Red Blood Count 4.77 M/mm3 (4.2-5.4); Red Cell Distribution Width 13.2 % (11.5-14.5); White Blood Count 13.4 K/mm3 (4.5-10.0)
[2023-12-30 05:57] LABS: Alanine Aminotransferase 17 U/L (6-35); Albumin Level 4.9 g/dL (3.5-5.1); Alkaline Phosphatase 87 U/L (38-126); Anion Gap 18 mmol/L (4-12); Aspartate Amino Transferase 22 U/L (14-36); Bilirubin,Total 1.5 mg/dL (0.2-1.3); Blood Urea Nitrogen 20 mg/dL (7-17); Calcium 9.3 mg/dL (8.4-10.2); Carbon Dioxide 21 mmol/L (22-30); Chloride 96 mmol/L (98-107); Estimated CRCL calculation 117 ml/min; Estimated Glomerular Filt Rate > 60; Glucose 211 mg/dL (65-110); Potassium 3.7 mmol/L (3.4-5.0); Sodium 135 mmol/L (137-145)
[2023-12-30 06:00] VITALS: BP 141/75; PULSE 122; RESP 18; TEMP 36.8; O2SAT 100
[2023-12-30 08:01] LABS: Glucose Point of Care 214 mg/dl (65-105)
[2023-12-30 08:04] VITALS: RESP 18; O2SAT 100
[2023-12-30] MEDS: INSULIN ASPART (*BKC) 100 UNITS/ML SUB-Q (08:04)
[2023-12-30 11:50] LABS: Glucose Point of Care 172 mg/dl (65-105)
[2023-12-30 14:00] VITALS: BP 114/73; PULSE 114; RESP 18; TEMP 36.3; O2SAT 99
--- NOTE | 2023-12-30 14:53 | PM.DS ---
DS: Admitting Diagnosis Discharge Date 12/30/2023 Admitting Diagnosis Dehydration DS: Discharge Diagnosis Discharge Diagnosis (1) Dehydration: Code(s): E86.0 - Dehydration Status: Acute Assessment and Plan: Presented with nausea and vomiting. Symptoms likely related to DKA. Treated with aggressive IVF hydration. All electrolytes within acceptable limits at discharge. Patient tolerated diet fairly well prior to discharge. Encouraged with fluids at home and good blood-glucose control. (2) Nausea and vomiting: Qualifiers: Vomiting type: unspecified Qualified Code(s): R11.2 - Nausea with vomiting, unspecified Code(s): R11.2 - Nausea with vomiting, unspecified Status: Acute Assessment and Plan: Likely related to DKA. CT abdomen and pelvis -showing possible minimal right hydroureteronephrosis. Correlate for any possibility passed stone. There is no blood noted in patient's urinalysis, low suspicion for any recent passed stone. Patient reported having symptoms every time before beginning of her menses. Patient referred to OBGYN for outpatient follow-up. Resolved prior to discharge. (3) Type 1 diabetes mellitus: Qualifiers: Diabetes mellitus complication status: with other specified complication Qualified Code(s): E10.69 - Type 1 diabetes mellitus with other specified complication Code(s): E10.9 - Type 1 diabetes mellitus without complications Status: Acute Assessment and Plan: Acute on chronic. A1c 6.5. Patient endorses compliance with insulin regimen at home. High-dose sliding scale initiated inpatient, in addition to home dose of Lantus at night. Blood glucose remained fairly controlled inpatient. visual educator consulted. DS: Summary Hospital Course Reason for hospitalization: Dehydration, Hyperglycemia Hospital Course: Patient with a history of DM 1 presented to the ER with reports of nausea and vomiting that has been ongoing all day prior to her arrival. Patient was evaluated and noted with metabolic derangements, including high blood glucose levels suspected to be from her DM1, low Na, low K, acidotic. She was admitted for hydration and stabilization of her blood-glucose levels. Patient has been hydrated with IV fluids and her electrolytes corrected. Her blood-glucose levels have been stabilized as well. She's been referred to OBGYN as she reports the same symptoms prior to her menses recently, after her last baby delivery 10 months ago. She has been referred to OBGY outpatient for further investigations on her symptoms. She's been able to tolerate meals well and is medically stable for discharge in no acute distress. Status at Discharge Functional status at discharge: independent ambulation Overall status at discharge: patient is progressing back to baseline Time Spent with Patient Time attestation: Total time spent providing and/or coordinating discharge services: Time spent: Greater than 30 minutes Exam Const: General: comfortable, no acute distress and uncomfortable Other: Appears to be comfortable but looks depressed. HENMT: Mouth: Yes moist mucous membranes Eyes: General: appearance normal, both eyes and all related structures Neck: Neck: supple and no JVD Lymphatic: lymphadenopathy not noted Chest: Other: Nontender to palpation. Resp: Effort & Inspection: normal respiratory effort Auscultation: clear to auscultation bilaterally Cardio: Rate: regular rate Rhythm: regular rhythm Heart sounds: no gallops, no murmurs and no rubs GI: Inspection: non-distended Auscultation: normal bowel sounds : Other: Deferred Skin: General skin exam: normal color, no rashes or lesions noted, no erythema, No lesion and No rashes Lesions: no lesions noted Rashes: no rashes noted Wounds: no wounds Neuro: Speech: normal speech Motor exam (neuro): 5/5 motor strength present throughout S
[2023-12-30 16:51] LABS: Glucose Point of Care 200 mg/dl (65-105)
== END 2023-12-30 18:20 | disposition home or self-care (01) | DRG 422 ==
LOC: ANHED 12-28 05:13 → ANH2MED 12-28 05:20
PROVIDERS: Nurse Practitioner Adult Health; Physician Assistant; Admitting Provider Internal Medicine; Emergency Provider Emergency Medicine; Visit Provider Nurse Practitioner Adult Health
DX: E86.0 Dehydration (principal); E10.65 Type 1 diabetes mellitus with hyperglycemia; R11.2 Nausea with vomiting, unspecified; F41.9 Anxiety disorder, unspecified; K25.9 Gastric ulcer, unspecified as acute or chronic, without hemorrhage or perforation; N13.30 Unspecified hydronephrosis; Z79.4 Long term (current) use of insulin
CPT/HCPCS: 36415; 71045; 74177; 80053; 81001; 81025; 82010; 82948; 83036; 83690; 83735; 84100; 85025; 96361; 96374; 96375; 99285; J1200; J1815; J2550; J2765; J7030; J7050; Q9967

== ENCOUNTER 2024-01-19 16:57 | Observation (INO) | payer BC, SELFPAY ==
--- NOTE | ~2024-01-19 | CT_ITS ---
CT abdomen pelvis w con Ordering provider: Roxanna Yu PA-C History: 28 years Female with . N/V/D, abd pain . Comparison: December 28, 2023 Technique: CT abdomen and pelvis with IV and without oral contrast. Automated exposure control and it erative reconstruction technique were employed. The dose-length product was 788.35 mGy-cm. 100 mL Omn ipaque 350 was given IV. Findings: VISUALIZED LOWER CHEST: Normal. UPPER ABDOMINAL ORGANS: Liver: Hypodensity adjacent to the interlobar fissure suggestive of fat infiltration. Gallbladder: Normal. Spleen: Normal. Stomach/duodenum: Sliding hiatus hernia. Pancreas: Normal. Adrenals: Normal. Kidneys: Slightly dilated right pelvicalyceal system with mild dilatation of the left side. Fullness of the ureters bilaterally more on the right side. PELVIC ORGANS: The bladder shows slightly thickened wall with underfilling.. Uterus: Normal. Left ovarian cyst measuring 2 cm. BOWEL AND MESENTERY: Colon: No evidence of diverticulitis. Appendix measures 6 mm which is suggestive of Normal appendix. Small Bowel: Normal. No obstruction. Peritoneum/mesentery: No free air or free fluid. No mesenteric lymphadenopathy. RETROPERITONEUM: Normal aorta. No retroperitoneal lymphadenopathy. MUSCULOSKELETAL: Superficial soft tissues: The superficial soft tissues are normal. Bones: Normal spine. IMPRESSION: 1. Hydronephrotic changes in the right kidney with no definite stones. 2. Left ovarian cyst. 3. Sliding hiatus hernia. Reviewed, dictated and finalized at location A.
[2024-01-19 17:18] VITALS: BP 133/96; PULSE 122; RESP 19; TEMP 36.4; O2SAT 95
[2024-01-19 17:53] LABS: Basophils Percent Auto 0.3 % (0.2-1.2); Eosinophils Percent Auto 0.1 % (0-4.4); Hematocrit 40.7 % (37.0-47.0); Hemoglobin 13.9 g/dL (12.0-15.0); Immature Granulocyte Absolute 0.03 K/mm3 (0.00-0.031); Immature Granulocyte Percent A 0.4 % (0-0.5); Lymphocytes Absolute Auto 1.13 K/mm3 (0.9-3.2); Lymphocytes Percent Auto 14.9 % (18.3-44.2); Mean Corpuscular HGB Conc 34.2 g/dl (32-36); Mean Corpuscular Hemoglobin 30.3 pg (26-34); Mean Corpuscular Volume 88.7 fl (80-100); Mean Platelet Volume 9.4 fl (7.4-10.4); Monocytes Absolute Auto 0.4 K/mm3 (0.1-0.6); Monocytes Percent Auto 4.8 % (2.6-8.5); Neutrophils Percent Auto 79.5 % (45.5-73.1); Platelet Count Result 340 k/mm3 (150-375); Red Blood Count 4.59 M/mm3 (4.2-5.4); Red Cell Distribution Width 13.8 % (11.5-14.5); White Blood Count 7.6 K/mm3 (4.5-10.0)
[2024-01-19 18:01] LABS: Alanine Aminotransferase 14 U/L (6-35); Albumin Level 4.5 g/dL (3.5-5.1); Alkaline Phosphatase 79 U/L (38-126); Anion Gap 10 mmol/L (4-12); Aspartate Amino Transferase 20 U/L (14-36); Bilirubin,Total 0.5 mg/dL (0.2-1.3); Blood Urea Nitrogen 8 mg/dL (7-17); Calcium 9.8 mg/dL (8.4-10.2); Carbon Dioxide 28 mmol/L (22-30); Chloride 101 mmol/L (98-107); Estimated CRCL calculation 135 ml/min; Estimated Glomerular Filt Rate > 60; Glucose 239 mg/dL (65-110); Lipase 23 U/L (23-300); Magnesium 1.5 mg/dL (1.6-2.3); Potassium 3.8 mmol/L (3.4-5.0); Sodium 139 mmol/L (137-145)
[2024-01-19] MEDS: FAMOTIDINE 20 MG/2 ML VIAL IV PUSH (18:06)
[2024-01-19] MEDS: METOCLOPRAMIDE HCL INJ 10 MG/2 ML VIAL IV PUSH (18:06)
[2024-01-19] MEDS: diphenhydrAMINE HCl INJ 50 MG/ML VIAL 25 MG IV PUSH (18:06)
[2024-01-19] MEDS: SODIUM CHLORIDE 0.9% IV 1,000 ML 999 ML IV CONT ×2 (18:07→18:09)
--- NOTE | 2024-01-19 18:09 | ED.NAVMDI ---
HPI - Nausea/Vomiting/Diarrhea General Chief complaint: Nausea/Vomiting/Diarrhea <ALPESH Hickey Last Filed: 01/20/24 01:00> Stated complaint: n/v, inc BG <Roxanna Yu PA-C - Last Filed: 01/20/24 01:00> Time Seen by Provider: 01/19/24 17:22 <ALPESH Hickey Last Filed: 01/20/24 01:00> Source: patient <ALPESH Hickey Last Filed: 01/20/24 01:00> Mode of arrival: ambulatory <ALPESH Hickey Last Filed: 01/20/24 01:00> Limitations: no limitations <ALPESH Hickey Last Filed: 01/20/24 01:00> History of Present Illness HPI Narrative: Patient is a 28-year-old female who presents the ED with report of nausea and vomiting. Patient reports she began having nausea and vomiting this morning. States she has been unable to keep down any food or drink. She does also report having diarrhea. Reports lower abdominal cramping. Denies sick contacts. States she otherwise felt in her normal state of health yesterday. Denies known fevers, cough, congestion. Patient has history of insulin-dependent diabetes, has insulin pump. States her blood sugars have been elevated into the 200s today despite correction doses. <ALPESH Hickey Last Filed: 01/20/24 01:00> Related Data Home medications: Home Medications Medication Instructions Recorded Confirmed insulin lispro 100 unit/mL See Rx Instructions .Route .COMPLEX 12/28/23 12/28/23 subcutaneous solution <ALPESH Hickey Last Filed: 01/20/24 01:00> Allergies/Adverse reactions: Allergies Allergy/AdvReac Type Severity Reaction Status Date / Time No Known Allergies Allergy Unknown Verified 12/28/23 05:39 <ALPESH Hickey Last Filed: 01/20/24 01:00> Review of Systems Review of Systems: All systems reviewed & are unremarkable except as noted in HPI. <Roxanna Yu PA-C - Last Filed: 01/20/24 01:00> All systems reviewed & are unremarkable except as noted in HPI and below <Roxanna Yu PA-C - Last Filed: 01/20/24 01:00> [facility] Past Medical History Medical History: Medical History Abdominal pain Chronic abdominal pain Anxiety Finger fracture Gastric ulcer On recent EGD at [facility] Type 1 diabetes mellitus <Roxanna Yu PA-C - Last Filed: 01/20/24 01:00> Surgical History Surgical History: Surgical History Hx of section 2017 Hx of dilation and curettage 2019 following missed ab Hx of tonsillectomy <Roxanna Yu PA-C - Last Filed: 01/20/24 01:00> Family History Family History: Family History Mother Family history of anemia Father Unknown family medical history Other Family history of arthritis Family history of hepatitis Family history of liver disease <Roxanna Yu PA-C - Last Filed: 01/20/24 01:00> Social History Social History: Social History Smoking status: Never smoker Alcohol intake: never Substance use: never Substance use type: does not use Do You Feel Safe in your Home?: Yes Lack of Transportation: No Lack of Food: Never True Current Housing: I Have Housing Concerned About Future Housing: No Difficulty Paying Gas/Electric Bills: No Difficulty Paying for Meds: No Currently Unemployed: No Education: Bachelor's Degree Difficulty w/ Childcare or Family Care: No Spiritual care concerns: No Agree to blood products: Yes <Roxanna Yu PA-C - Last Filed: 01/20/24 01:00> Exam Narrative: GENERAL: Mildly ill appearing, obese with BMI of 31.0, actively vomiting on exam. HEAD: Normocephalic, atraumatic. RESPIRATORY: Air
[2024-01-19 18:22] LABS: Beta-Hydroxybutyrate/Acetoacetate 1.14 mmol/L (0.02-0.27)
[2024-01-19 18:29] LABS: Influenza A QL RT-PCR Negative (Negative); Influenza B QL RT-PCR Negative (Negative); RSV RNA, RT-PCR Negative (Negative); SARS-CoV-2 RNA PCR Negative (Negative)
[2024-01-19 19:08] VITALS: BP 154/100; PULSE 132; RESP 15; O2SAT 97
[2024-01-19] MEDS: MAGNESIUM SULF 2 GM/WATER 50ML 2 GM/50 ML BAG IVPB (19:08)
[2024-01-19 19:40] LABS: BEDSIDEPREGUCG Negative (Negative)
[2024-01-19 19:43] LABS: Add Urine Microscopic? NO; Appearance Urine Clear (Clear); Bilirubin Urine Negative (Negative); Blood Urine Negative (Negative); Color Urine Yellow (Yellow); Glucose Urine UA 2+ mg/dL (Negative); Ketones Urine 2+ mg/dL (Negative); Leukocyte Esterase Ur Negative LEU/UL (Negative); Nitrate Urine Negative (Negative); Protein Urine Negative (Negative); Specific Grav Ur 1.015 (1.001-1.035); Urobilinogen Urine 0.2 mg/dL (<2.0); pH Urine 7.5 (5.0-9.0)
[2024-01-19 20:00] VITALS: BP 152/92; PULSE 118; RESP 18; O2SAT 100
--- NOTE | 2024-01-19 20:58 | PC.NURSE ---
pt refused zofran at this time.
[2024-01-19 21:00] VITALS: BP 129/83; PULSE 115; RESP 13; O2SAT 100
[2024-01-19 21:30] VITALS: BP 135/82; PULSE 113; RESP 15; O2SAT 100
[2024-01-19] MEDS: SODIUM CHLORIDE 0.9% IV 1,000 ML 999 ML (22:17)
[2024-01-19] MEDS: HALOPERIDOL LACTATE 5 MG/ML VIAL IV PUSH (22:21)
[2024-01-19 23:37] LABS: Amphetamine Screen Urine Negative (Negative); Barbiturate Screen Urine Negative (Negative); Benzodiazepines Screen Urine Negative (Negative); Cannabinoid Screen Urine Negative (Negative); Cocaine Screen Urine Negative (Negative); Methadone Screen Urine Negative (Negative); Opiate Screen Urine Negative (Negative); Phencyclidine Screen Urine Negative (Negative)
[2024-01-19 23:43] VITALS: PULSE 99; RESP 18; O2SAT 100
[2024-01-20] VITALS (8 sets, daily range): BP systolic 101–131; BP diastolic 58–78; PULSE 88–110; RESP 13–20; TEMP 36.2–36.9; O2SAT 98–100; BMI 31.0; BMI 32.8
[2024-01-20] MEDS: KETOROLAC 30 MG/ML VIAL (*BKC) IV PUSH (00:40)
[2024-01-20] MEDS: SODIUM CHLORIDE 0.9% IV 1,000 ML 125 ML IV CONT ×2 (00:42→11:41)
[2024-01-20 00:46] LABS: Glucose Point of Care 220 mg/dl (65-105)
[2024-01-20] MEDS: IBUPROFEN IV 800 MG/200 ML 800 MG/200 ML BAG 400 MG IVPB (01:19)
--- NOTE | 2024-01-20 01:56 | PC.NURSE ---
pt offered a hospital gown, would prefer to stay in home clothes to sleep in.
--- NOTE | 2024-01-20 02:25 | PC.NURSE ---
This patient, Karina Fuchs, was admitted to [address] [place] [address] Room 306-02. Patient/family oriented to hospital policies and general routines including ID bracelet, bed and alarms, visiting hours, pain management, procedures, bathroom and other care routines, personal items, smoking policy, room service/diet, and visiting hours. Information on how to activate the Rapid Response Team has been discussed. Patient/Family are encouraged to report perceived risks to care and to ask questions if they do not understand what they are told or what they should do.
[2024-01-20 03:30] LABS: Glucose Point of Care 189 mg/dl (65-105)
--- NOTE | 2024-01-20 07:37 | PM.IMHP ---
H&P: HPI History of Present Illness Date/Time: 01/20/24 07:37 Chief Complaint: nausea/vomiting/diarrhea Narrative: This is a 28 year old female with a significant past medical history of type 1 DM, gastric ulcer, anxiety who presented to the hospital with reports of nausea, vomiting, and diarrhea. Patient states that her symptoms started yesterday with nausea and vomiting. She correlated her symptoms to 4-5 days prior to her starting her period. She further stated that this happens monthly and does follow with an adventure challenge instructor on an outpatient basis for her Type I DM. Patient reports the following history of presenting illness. Patient denies any fever, chills, nausea, vomiting, diarrhea, abdominal pain, chest pain, shortness of breath. Patient states she is feeling much better today and is wanting to return home. Work up in the hospital includes an abdomen/pelvis CT which shown hydronephrotic changes in the right kidney with no definite stones, left ovarian cyst, sliding hiatus hernia. Initial labs shown a normal WBC 7.6, BG ranging 189-239, Magnesium 1.5, Beta hydroxybutyrate 1.14, Anion gap 10. UA shown 2+ glucose, 2+ urine ketones, otherwise negative. UDS negative. Respiratory panel negative for influenza A and B, RSV, COVID. Patient was given Zofran, Benadryl, Pepcid, Reglan, 2L NS, 2 gm Magnesium, Haldol, and pain medications while in the ER. Review of Systems Review of Systems: All systems reviewed & are unremarkable except as noted in HPI and below Constitutional: Constitutional: Reports as per HPI and Reports no additional constitutional complaints Eyes: Eyes: Reports as per HPI and Reports no additional eye complaints ENT: Reports system reviewed and no additional complaints, except as documented and Reports as per HPI Cardiovascular: Cardiovascular: Reports as per HPI and Reports no additional cardiovascular complaints Respiratory: Respiratory: Reports as per HPI and Reports no additional respiratory complaints Gastrointestinal: Gastrointestinal: Reports as per HPI and Reports no additional gastrointestinal complaints Genitourinary: Genitourinary: Reports no additional female genitourinary complaints and Reports as per HPI Musculoskeletal: Musculoskeletal: Reports no additional musculoskeletal complaints and Reports as per HPI Integumentary/Breasts: Skin/Breast: Reports system reviewed and no additional complaints, except as docu and Reports as per HPI Neurologic: Reports system reviewed and no additional complaints, except as documented and Reports as per HPI Psychiatric: Psychiatric: Reports no additional psychiatric complaints and Reports as per HPI [facility] Past Medical History Medical History Abdominal pain Chronic abdominal pain Anxiety Finger fracture Gastric ulcer On recent EGD at [facility] Type 1 diabetes mellitus Surgical History Surgical History Hx of section 2017 Hx of dilation and curettage 2019 following missed ab Hx of tonsillectomy Family History Family History Mother Family history of anemia Father Unknown family medical history Other Family history of arthritis Family history of hepatitis Family history of liver disease Social History Social History Smoking status: Never smoker Alcohol intake: never Substance use: never Substance use type: does not use Do You Feel Safe in your Home?: Yes Lack of Transportation: No Lack of Food: Never True Current Housing: I Have Housing Concerned About Future Housing: No Difficulty Paying Gas/Electric Bills: No Difficulty Paying for Meds: No Currently Unemployed: No Education: Bachelor's Degree Difficulty w/ Childcare or Family Care: No Spiritual care concerns: No [employer]
[2024-01-20 07:48] LABS: Glucose Point of Care 234 mg/dl (65-105)
[2024-01-20] MEDS: INSULIN ASPART (*BKC) 100 UNITS/ML SUB-Q ×2 (09:47→11:42)
[2024-01-20] MEDS: FAMOTIDINE 20 MG/2 ML VIAL IV PUSH (09:50)
[2024-01-20 10:52] LABS: Hemoglobin A1C 6.2 % (<5.7)
[2024-01-20 11:15] LABS: Glucose Point of Care 237 mg/dl (65-105)
--- NOTE | 2024-01-20 13:56 | PM.DS ---
DS: Admitting Diagnosis Discharge Date 01/20/24 Admitting Diagnosis Dehydration Intractable nausea and vomiting hypomagnesemia DM DS: Summary Hospital Course Reason for hospitalization: Dehydration Intractable nausea and vomiting hypomagnesemia DM Hospital Course: Interval history: This is a 28 year old female with a significant past medical history of type 1 DM, gastric ulcer, anxiety who presented to the hospital with reports of nausea, vomiting, and diarrhea. Patient states that her symptoms started yesterday with nausea and vomiting. She correlated her symptoms to 4-5 days prior to her starting her period. She further stated that this happens monthly and does follow with an fourth hand on an outpatient basis for her Type I DM. Patient reports the following history of presenting illness. Patient denies any fever, chills, nausea, vomiting, diarrhea, abdominal pain, chest pain, shortness of breath. Patient states she is feeling much better today and is wanting to return home. Work up in the hospital includes an abdomen/pelvis CT which shown hydronephrotic changes in the right kidney with no definite stones, left ovarian cyst, sliding hiatus hernia. Initial labs shown a normal WBC 7.6, BG ranging 189-239, Magnesium 1.5, Beta hydroxybutyrate 1.14, Anion gap 10. UA shown 2+ glucose, 2+ urine ketones, otherwise negative. UDS negative. Respiratory panel negative for influenza A and B, RSV, COVID. Patient was given Zofran, Benadryl, Pepcid, Reglan, 2L NS, 2 gm Magnesium, Haldol, and pain medications while in the ER. Patient is holding food and fluid down and is requesting to return home as she has small children at home. clinical trial educator was consulted. Patient is stable for discharge at this time. Final Diagnosis: Dehydration, Electrolyte imbalance Status at Discharge Cognitive/behavioral status at discharge: Alert and oriented x3 Functional status at discharge: independent ambulation Overall status at discharge: patient is progressing back to baseline Time Spent with Patient Time attestation: Total time spent providing and/or coordinating discharge services: Time spent: Greater than 30 minutes Exam Narrative: General: In no acute distress, well nourished Cardiac: Normal S1 and S2. No murmur, gallops or friction rubs, peripheral pulses intact. Respiratory: Lungs clear to auscultation, no adventitious lung sounds, currently on room air Gastrointestinal: soft, non-distended, non-tender, normoactive bowel sounds. : voiding without difficulty. Neuro: Alert and oriented x4 DS: Data Data Completed and Pending Completed studies during hospitalization: Abdomen/Pelvis CT Chest x-ray Abdomen/Pelvis CT Pending studies at discharge: None Labs on day of discharge: Labs from last 24 hours 01/20/24 01/20/24 01/20/24 11:13 07:46 03:28 WBC RBC Hgb Hct MCV MCH MCHC RDW Plt Count MPV Immature Gran % (Auto) Neut % (Auto) Lymph % (Auto) Bartholomew % (Auto) Eos % (Auto) Baso % (Auto) Lymph # (Auto) Bartholomew # (Auto) Eos # (Auto) Baso # (Auto) Abs Immat Gran (auto) Absolute Neuts (auto) Absolute Nucleated RBC Nucleated RBC % Sodium Potassium Chloride Carbon Dioxide Anion Gap BUN Creatinine Estim Creat Clear Calc Estimated GFR Glucose POC Capillary Glucose 237 H 234 H 189 H Hemoglobin A1c Calcium Magnesium Total Bilirubin AST ALT Alkaline Phosphatase Total Protein Albumin Lipase Beta-Hydroxybutyrate/Acetoacetate Urine Color Urine Appearance Urine pH Ur Specific Prue Urine Protein Urine Glucose (UA) Urine Ketones Ur Blood (Man) Urine Nitrate Urine Bilirubin Urine Urobilinogen Leukocyte Esterase Rfl POC Urine HCG, Qual Urine Opiates Screen Urine Methadone Screen Ur Barbiturates Screen Ur Phencyclidine Scrn Ur Amphet
--- NOTE | 2024-01-21 13:00 | PCCDE ---
01/21/24 Attempted to reach patient. Left message on patients cell phone including my direct line.
== END 2024-01-20 16:05 | disposition home or self-care (01) ==
LOC: ANHED 01-20 00:36 → ANH3MEDSUR 01-20 01:53
PROVIDERS: Emergency Medicine; Nurse Practitioner Acute Care; Admitting Provider General Practice; Emergency Provider Physician Assistant; Visit Provider Internal Medicine
DX: R11.2 Nausea with vomiting, unspecified (principal); E86.0 Dehydration; E83.42 Hypomagnesemia; E10.9 Type 1 diabetes mellitus without complications; F41.9 Anxiety disorder, unspecified; Z87.11 Personal history of peptic ulcer disease; Z79.4 Long term (current) use of insulin; Z96.41 Presence of insulin pump (external) (internal); Z20.822 Contact with and (suspected) exposure to COVID-19
CPT/HCPCS: 36415; 74177; 80053; 80307; 81003; 81025; 82010; 82948; 83036; 83690; 83735; 85025; 87637; 93005; 96361; 96365; 96366; 96375; 99285; G0379; J1200; J1630; J1741; J1815; J1885; J2405; J2765; J3475; J7030; Q9967

== ENCOUNTER 2024-02-12 12:06 | Observation (INO) | payer BC, SELFPAY ==
[2024-02-12 12:10] VITALS: BP 161/109; PULSE 127; RESP 19; TEMP 36.4; O2SAT 100
[2024-02-12 12:28] LABS: Glucose Point of Care 197 mg/dl (65-105)
[2024-02-12 12:30] VITALS: BP 143/87; PULSE 110; RESP 18; TEMP 36.5; O2SAT 97
[2024-02-12] MEDS: diphenhydrAMINE HCl INJ 50 MG/ML VIAL 25 MG IV PUSH ×2 (12:33→17:53)
[2024-02-12] MEDS: METOCLOPRAMIDE HCL INJ 10 MG/2 ML VIAL IV PUSH (12:33)
[2024-02-12] MEDS: LACTATED RINGERS 1,000 ML 999 ML IV CONT ×3 (12:34→14:19)
[2024-02-12 12:52] LABS: Basophils Percent Auto 0.4 % (0.2-1.2); Eosinophils Percent Auto 0.1 % (0-4.4); Hematocrit 42.8 % (37.0-47.0); Hemoglobin 14.5 g/dL (12.0-15.0); Immature Granulocyte Absolute 0.05 K/mm3 (0.00-0.031); Immature Granulocyte Percent A 0.5 % (0-0.5); Lymphocytes Absolute Auto 1.06 K/mm3 (0.9-3.2); Lymphocytes Percent Auto 11.4 % (18.3-44.2); Mean Corpuscular HGB Conc 33.9 g/dl (32-36); Mean Corpuscular Volume 88.6 fl (80-100); Mean Platelet Volume 9.2 fl (7.4-10.4); Monocytes Absolute Auto 0.4 K/mm3 (0.1-0.6); Monocytes Percent Auto 4.6 % (2.6-8.5); Neutrophils Absolute Auto 7.7 K/mm3 (1.3-6.7); Platelet Count Result 374 k/mm3 (150-375); Red Blood Count 4.83 M/mm3 (4.2-5.4); Red Cell Distribution Width 13.5 % (11.5-14.5); White Blood Count 9.3 K/mm3 (4.5-10.0)
[2024-02-12 13:06] LABS: Beta-Hydroxybutyrate/Acetoacetate 0.38 mmol/L (0.02-0.27)
[2024-02-12 13:09] LABS: Alanine Aminotransferase 14 U/L (6-35); Albumin Level 4.7 g/dL (3.5-5.1); Alkaline Phosphatase 80 U/L (38-126); Anion Gap 13 mmol/L (4-12); Aspartate Amino Transferase 35 U/L (14-36); Bilirubin,Total 0.6 mg/dL (0.2-1.3); Blood Urea Nitrogen 13 mg/dL (7-17); Calcium 9.6 mg/dL (8.4-10.2); Carbon Dioxide 23 mmol/L (22-30); Chloride 102 mmol/L (98-107); Estimated CRCL calculation 135 ml/min; Estimated Glomerular Filt Rate > 60; Glucose 219 mg/dL (65-110); Magnesium 1.4 mg/dL (1.6-2.3); Phosphorus 2.1 mg/dL (2.5-4.5); Potassium 3.7 mmol/L (3.4-5.0); Sodium 138 mmol/L (137-145)
[2024-02-12 13:40] LABS: Add Urine Microscopic? NO; Appearance Urine Clear (Clear); Bilirubin Urine Negative (Negative); Blood Urine Negative (Negative); Color Urine Yellow (Yellow); Glucose Urine UA 3+ mg/dL (Negative); Ketones Urine 1+ mg/dL (Negative); Leukocyte Esterase Ur Negative LEU/UL (Negative); Nitrate Urine Negative (Negative); Protein Urine Negative (Negative); Specific Grav Ur 1.015 (1.001-1.035); Urobilinogen Urine 0.2 mg/dL (<2.0)
[2024-02-12] MEDS: ONDANSETRON INJ 4 MG/2 ML VIAL IV PUSH (14:15)
--- NOTE | 2024-02-12 16:16 | PC.NURSE ---
Pt refused potassium/phosphorus/sodium, aware.
[2024-02-12 17:00] VITALS: RESP 20; O2SAT 100
[2024-02-12 17:33] LABS: Anion Gap 9 mmol/L (4-12); Blood Urea Nitrogen 10 mg/dL (7-17); Calcium 9.6 mg/dL (8.4-10.2); Carbon Dioxide 27 mmol/L (22-30); Chloride 95 mmol/L (98-107); Estimated CRCL calculation 164 ml/min; Estimated Glomerular Filt Rate > 60; Glucose 183 mg/dL (65-110); Potassium 3.9 mmol/L (3.4-5.0); Sodium 131 mmol/L (137-145)
[2024-02-12 17:50] VITALS: BP 133/75; PULSE 112; RESP 17; O2SAT 98
[2024-02-12] MEDS: MAGNESIUM SULF 2 GM/WATER 50ML 2 GM/50 ML BAG IVPB (17:52)
[2024-02-12] MEDS: HALOPERIDOL LACTATE 5 MG/ML VIAL 2.5 MG IV PUSH (18:01)
--- NOTE | 2024-02-12 18:20 | PM.IMHP ---
H&P: HPI History of Present Illness Date/Time: 02/12/24 18:20 Chief Complaint: nausea vomiting Narrative: 28-year-old female with PMHx: Of type 1 diabetes, anxiety, gastric ulceration, along with chronic abdominal pain, presented to the emergency room with complaints of ongoing abdominal pain along with nausea vomiting for the past day. Patient reports poor oral intake due to ongoing N/V, she denies any fever chills, chest pain, or SOB at this time. She reports managing her compliance with insulin pump and home medications. ED Work-up reveals: Vital Signs Temp Pulse Resp BP Pulse Ox O2 Del Method 97.6 F 127 H 19 161/109 H 100 Room Air 02/12/24 12:10 02/12/24 12:10 02/12/24 12:10 02/12/24 12:10 02/12/24 12:10 02/12/24 12:10 patient presented with s/s that were consistent with DKA, no infectious symptoms, anti emetics were given, IV fluid was initiated, patient continued to have ongoing N/V after 3rd round of antiemetics were given, concern for DKA patient was admitted in the setting of IV hydration in nausea vomiting. Review of Systems Review of Systems: All systems reviewed & are unremarkable except as noted in HPI and below PMFSH Past Medical History Medical History Abdominal pain Chronic abdominal pain Anxiety Finger fracture Gastric ulcer On recent EGD at [facility] Type 1 diabetes mellitus Surgical History Surgical History Hx of section 2017 Hx of dilation and curettage 2019 following missed ab Hx of tonsillectomy Family History Family History Mother Family history of anemia Father Unknown family medical history Other Family history of arthritis Family history of hepatitis Family history of liver disease Social History Social History Smoking status: Never smoker Alcohol intake: never Substance use: never Substance use type: does not use Do You Feel Safe in your Home?: Yes Lack of Transportation: No Lack of Food: Never True Current Housing: I Have Housing Concerned About Future Housing: No Difficulty Paying Gas/Electric Bills: No Difficulty Paying for Meds: No Currently Unemployed: No Education: Bachelor's Degree Difficulty w/ Childcare or Family Care: No Spiritual care concerns: No Agree to blood products: Yes Meds Home Medications and Allergies Home Medications Medication Instructions Recorded Confirmed Type insulin lispro 100 unit/mL See Rx Instructions .Route .COMPLEX 12/28/23 01/20/24 History subcutaneous solution Allergies Allergy/AdvReac Type Severity Reaction Status Date / Time No Known Allergies Allergy Unknown Verified 12/28/23 05:39 Vital Signs Vital Signs - 24 hr 02/12/24 12:10 02/12/24 12:30 02/12/24 17:50 Temperature 97.6 F 97.7 F Pulse Rate 127 H 110 H 112 H Respiratory Rate 19 18 17 Blood Pressure 161/109 H 143/87 H 133/75 Pulse Oximetry 100 97 98 Oxygen Delivery Room Air Exam Narrative: Constitutional: Patient resting in bed, easily arouses in no acute distress HEAD: Normal with no signs of head trauma. EYES: EOMI, conjunctiva normal ENT: Hearing grossly intact LUNGS: Nonlabored breathing. HEART: Regular rate and rhythm ABD: Soft, nontender to palpation EXT: Normal range of motion SKIN: No rashes or lesions. NEURO: Alert and oriented x 3. No gross focal sensory or strength deficits. PSYCH: Normal affect H&P: Results Labs Labs: Short CBC 02/12/24 Range/Units 12:43 WBC 9.3 (4.5-10.0) K/mm3 Hgb 14.5 (12.0-15.0) g/dL Hct 42.8 (37.0-47.0) % Plt Count 374 (150-375) k/mm3 [facility] 02/12/24 02/12/24 12:43 17:17 Sodium 138 131 L Potassium 3.7 3.9 Chloride 102 95 L Carbon Dioxide 23 27 BUN
[2024-02-12 18:37] LABS: Glucose Point of Care 190 mg/dl (65-105)
[2024-02-12 18:54] LABS: Amphetamine Screen Urine Negative (Negative); Barbiturate Screen Urine Negative (Negative); Benzodiazepines Screen Urine Negative (Negative); Cannabinoid Screen Urine Negative (Negative); Cocaine Screen Urine Negative (Negative); Methadone Screen Urine Negative (Negative); Opiate Screen Urine Negative (Negative); Phencyclidine Screen Urine Negative (Negative)
--- NOTE | 2024-02-12 19:33 | ED.RECABL ---
HPI - Recheck/Abnormal Lab/Rx General Chief Complaint: Recheck/Abnormal Lab/Rx Stated Complaint: Vomiting, High Sugars Time Seen by Provider: 02/12/24 12:21 History of Present Illness HPI narrative: Patient with history of diabetes type 1 presents with concern for DKA. She has been throwing up nonstop cannot keep anything down. No cough, runny nose, dysuria, or any other source of infection that she is aware of Related Data Home Medications Medication Instructions Recorded Confirmed insulin lispro 100 unit/mL See Rx Instructions .Route .COMPLEX 12/28/23 01/20/24 subcutaneous solution Allergies Allergy/AdvReac Type Severity Reaction Status Date / Time No Known Allergies Allergy Unknown Verified 12/28/23 05:39 Review of Systems Review of Systems: All systems reviewed & are unremarkable except as noted in HPI and below PMFSH Past Medical History Medical History Abdominal pain Chronic abdominal pain Anxiety Finger fracture Gastric ulcer On recent EGD at [facility] Type 1 diabetes mellitus Surgical History Surgical History Hx of section 2017 Hx of dilation and curettage 2019 following missed ab Hx of tonsillectomy Family History Family History Mother Family history of anemia Father Unknown family medical history Other Family history of arthritis Family history of hepatitis Family history of liver disease Social History Social History Smoking status: Never smoker Alcohol intake: never Substance use: never Substance use type: does not use Do You Feel Safe in your Home?: Yes Lack of Transportation: No Lack of Food: Never True Current Housing: I Have Housing Concerned About Future Housing: No Difficulty Paying Gas/Electric Bills: No Difficulty Paying for Meds: No Currently Unemployed: No Education: Bachelor's Degree Difficulty w/ Childcare or Family Care: No Spiritual care concerns: No Agree to blood products: Yes Exam Narrative: EXAMINATION OF ORGAN SYSTEMS/BODY AREAS: Constitutional: Vital signs per nursing GENERAL: actively retching HEAD: Normal with no signs of head trauma. EYES: EOMI, conjunctiva normal ENT: Hearing grossly intact LUNGS: Nonlabored breathing. HEART: [Regular rate and rhythm] ABD: [Soft], [nontender to palpation] EXT: Normal range of motion SKIN: [No rashes or lesions.] NEURO: [Alert and oriented x 3. No gross focal sensory or strength deficits.] PSYCH: Normal affect Course Vital Signs Vital signs: Vital Signs Temperature 97.6 F 02/12/24 12:10 Pulse Rate 127 H 02/12/24 12:10 Respiratory Rate 19 02/12/24 12:10 Blood Pressure 161/109 H 02/12/24 12:10 Pulse Oximetry 100 02/12/24 12:10 Oxygen Delivery Room Air 02/12/24 12:10 Temperature 97.7 F 02/12/24 12:30 Pulse Rate 112 H 02/12/24 17:50 Respiratory Rate 17 02/12/24 17:50 Blood Pressure 133/75 02/12/24 17:50 Pulse Oximetry 98 02/12/24 17:50 Oxygen Delivery Room Air 02/12/24 12:10 Procedures EJ/Peripheral Line Arm R: EJ/Peripheral Line Date: 02/12/24 EJ/Peripheral Line Time: 18:00 Ultrasound Guided: Yes Size (gauge): 20 IV Secured and Dressing Applied: Yes Patient Tolerated Procedure: well and no complications MDM - Recheck/Abnormal Lab/Rx MDM Narrative Medical decision making narrative: 28-year-old female presents with signs and symptoms consistent with DKA, no infectious symptoms, abdomen soft and nontender. Antiemetics ordered and IV hydration started. On re-evaluation she is still quite nauseous, additional dose of antiemetics provided, additional fluids given. Labs have returned and electrolytes are repleted. On re-
[2024-02-12] MEDS: LACTATED RINGERS 1,000 ML 125 ML IV CONT (20:10)
--- NOTE | 2024-02-12 20:10 | ADMGEN ---
This patient, Karina Fuchs, was admitted to [address] [place] [address] Room 300-01. Patient/family oriented to hospital policies and general routines including ID bracelet, bed and alarms, visiting hours, pain management, procedures, bathroom and other care routines, personal items, smoking policy, room service/diet, and visiting hours. Information on how to activate the Rapid Response Team has been discussed. Patient/Family are encouraged to report perceived risks to care and to ask questions if they do not understand what they are told or what they should do.
[2024-02-12 20:30] VITALS: BP 113/65; PULSE 101; RESP 18; TEMP 36.6; O2SAT 94
[2024-02-12 20:57] LABS: Glucose Point of Care 213 mg/dl (65-105)
[2024-02-12 22:59] VITALS: BMI 34.9
--- NOTE | 2024-02-12 23:02 | PC.NURSE ---
Bedside test negative Pt states that they are still nauseated and dry heaving. Able to walk to the bathroom. However, still not coherent enough to answer admission questions.
[2024-02-13] MEDS: LACTATED RINGERS 1,000 ML 125 ML IV CONT (04:10)
--- NOTE | 2024-02-13 04:25 | PC.NURSE ---
Pt was asked about using her personal Insulin Pump, at this time patient refused to use her personal insulin pump while in the hospital. Pt states that her dexcom is not properly working. nursing staff will manage blood glucose checks and sugar management
[2024-02-13 04:27] LABS: Glucose Point of Care 188 mg/dl (65-105)
[2024-02-13 05:30] VITALS: BP 109/59; PULSE 106; RESP 20; TEMP 37.1; O2SAT 99
[2024-02-13 06:54] LABS: Basophils Percent Auto 0.3 % (0.2-1.2); Eosinophils Percent Auto 0.1 % (0-4.4); Hematocrit 38.5 % (37.0-47.0); Hemoglobin 12.9 g/dL (12.0-15.0); Immature Granulocyte Absolute 0.03 K/mm3 (0.00-0.031); Immature Granulocyte Percent A 0.3 % (0-0.5); Lymphocytes Absolute Auto 2.01 K/mm3 (0.9-3.2); Lymphocytes Percent Auto 17.9 % (18.3-44.2); Mean Corpuscular HGB Conc 33.5 g/dl (32-36); Mean Corpuscular Hemoglobin 30.3 pg (26-34); Mean Corpuscular Volume 90.4 fl (80-100); Mean Platelet Volume 9.3 fl (7.4-10.4); Monocytes Percent Auto 8.8 % (2.6-8.5); Neutrophils Absolute Auto 8.2 K/mm3 (1.3-6.7); Neutrophils Percent Auto 72.6 % (45.5-73.1); Platelet Count Result 257 k/mm3 (150-375); Red Blood Count 4.26 M/mm3 (4.2-5.4); Red Cell Distribution Width 13.3 % (11.5-14.5); White Blood Count 11.3 K/mm3 (4.5-10.0)
[2024-02-13 07:26] LABS: Alanine Aminotransferase 11 U/L (6-35); Alkaline Phosphatase 51 U/L (38-126); Anion Gap 11 mmol/L (4-12); Aspartate Amino Transferase 26 U/L (14-36); Bilirubin,Total 1.4 mg/dL (0.2-1.3); Blood Urea Nitrogen 12 mg/dL (7-17); Calcium 8.8 mg/dL (8.4-10.2); Carbon Dioxide 20 mmol/L (22-30); Chloride 99 mmol/L (98-107); Estimated CRCL calculation 169 ml/min; Estimated Glomerular Filt Rate > 60; Glucose 161 mg/dL (65-110); Potassium 3.9 mmol/L (3.4-5.0); Sodium 130 mmol/L (137-145)
[2024-02-13 07:33] LABS: Glucose Point of Care 164 mg/dl (65-105)
[2024-02-13 09:54] VITALS: O2SAT 96
--- NOTE | 2024-02-13 10:52 | PC.NURSE ---
Addendum entered by Peyton Love RN 02/13/24 10:56: Dr. Gould made aware of patient's refusal to use personal pump this AM. Original Note: pt refuses to use personal insulin pump, reports that her Dexcom is malfunctioning and will not sync with her insulin pump; she does not know her prescription for insulin pump basal rate. She prefers nursing staff to monitor blood sugar and administer insulin. Order for Outdoor Studies Director to meet with patient was ordered upon admission.
--- NOTE | 2024-02-13 11:17 | PM.DS ---
DS: Admitting Diagnosis Discharge Date 02/13/2024 Admitting Diagnosis nausea with emesis DS: Discharge Diagnosis Discharge Diagnosis (1) Intractable nausea and vomiting: Code(s): R11.2 - Nausea with vomiting, unspecified Status: Acute Assessment and Plan: -denies any cannabis use, she is unsure of -check urine -IV hydration LR 125 ml/hr while hospitalized -symptoms resolved (2) Hypomagnesemia: Code(s): E83.42 - Hypomagnesemia Status: Acute Assessment and Plan: -received magnesium 2 g IV in the ED -continue to monitor -02/12 Mag 2.0 (3) Type 1 diabetes mellitus: Qualifiers: Diabetes mellitus complication status: with other specified complication Qualified Code(s): E10.69 - Type 1 diabetes mellitus with other specified complication Code(s): E10.9 - Type 1 diabetes mellitus without complications Status: Acute Assessment and Plan: -patient removed her insulin pump this morning because her Dexcom 7 sensor fell off her arm -she wishes to start a basal bolus regimen until she can see her architectural designer because she is short of Dexcom 7 sensors -her rate on her insulin pump is 1.3 units/hour continuously with bolus of 1 unit per 6 g of carbs consumed plus 1 unit for every 25 mg/dL sugar is over 180 mg/dL -started glargine insulin 16 units q.a.m. on morning of discharge plus list proinsulin 4 units prior to each meal with addition of 1 unit per 6 g of carbohydrate consumed plus 1 unit for every 25 mg/dL glucose is over 180 mg/dL -reviewed in detail with patient and she understands and agrees to follow this regimen until she sees her architectural designer -she has a glucometer lancets and test strips at home and agrees to check her sugar prior to each meal and as needed (4) Hypokalemia: Code(s): E87.6 - Hypokalemia Status: Acute Assessment and Plan: -continue to monitor -received oral replacement K+/phosphorus in the ED - 02/12 3.9 DS: Summary Hospital Course Reason for hospitalization: Nausea with emesis Hospital Course: 28-year-old female with long history of type 1 diabetes was admitted with recurrent nausea with emesis, without pain. Episodes tend to happen monthly. She does not not always come to the hospital but has for the last 3 months. IV fluids and antiemetics tend to help. Her beta hydroxybutyrate is a little elevated with each admission and her ketones are positive in her urine however her anion gap has been normal. Admission this time anion gap was 11 and beta hydroxybutyrate was 0.38 millimoles per L. upper limit of normal was 0.27 millimole per L. Glucose at admission was 219 and at discharge 161. Urine test was negative. On January 19, [address] of the abdomen pelvis revealed mild right hydronephrosis, ovarian cyst, and a sliding hiatal hernia. Imaging of the chest and abdomen were not repeated during this admission. Time Spent with Patient Time attestation: Total time spent providing and/or coordinating discharge services: Exam Narrative: Constitutional: Patient resting in bed, easily arouses in no acute distress HEAD: Normal with no signs of head trauma. EYES: EOMI, conjunctiva normal ENT: Hearing grossly intact LUNGS: Nonlabored breathing. CTA. HEART: Regular rate and rhythm, NL S1,S2, no murmur. ABD: Soft, nontender to palpation, BS present. EXT: Normal range of motion SKIN: No rashes or lesions on exposed skin. NEURO: CN symmetric to inspection. PSYCH: Normal affect. Mood euthymic. A/O x4. Speech clear and coherent. DS: Data Data Completed and Pending Labs on day of discharge: Labs from last 24 hours 02/13/24 02/13/24 02/13/24 07:30 06:48 06:47 WBC 11.3 H RBC 4.26 Hgb 12.9 Hct 38.5 MCV 90.4 MCH 30.3 MCHC 33.5 RDW 13.3 Plt Count 257 MPV 9.3 Immature Gran % (Auto) 0.3 Neut % (Auto) 72.6 Lymph % (Auto) 17.9 L
[2024-02-13] MEDS: INSULIN GLARGINE (*BKC) 100 UNITS/ML 16 UNITS SUB-Q (11:18)
[2024-02-13 12:02] LABS: Glucose Point of Care 203 mg/dl (65-105)
[2024-02-13 12:42] LABS: Pregnancy On Board Control Positive; Urine Pregnancy Test Negative
[2024-02-13 14:00] VITALS: BP 114/63; PULSE 84; RESP 16; TEMP 36.5; O2SAT 98
--- NOTE | 2024-02-21 13:38 | PCCDE ---
02/21/24 Message left on pt voice machine. Pt was seen on previous admission. TITUS
--- NOTE | 2024-02-21 13:53 | PCCDE ---
02/20/: 1:45 pm Pt returned message. States her Glucose is doing much better c/o hyperglycemia week prior to menstruation. Denies menstruation x 2 months -> directed to REVIEW RN (has appt next week) Enc'd to share CGM data with Endo for possible temporary basal week prior to menstruation. Advised pt to ask Endo for DSMT referral zeinabn. TITUS
== END 2024-02-13 14:30 | disposition home or self-care (01) ==
LOC: ANHED 13:03 → ANH3MEDSUR 19:36
PROVIDERS: Nurse Practitioner; Admitting Provider General Practice; Emergency Provider Emergency Medicine; PCP Emergency Medicine; Visit Provider Internal Medicine
DX: R11.2 Nausea with vomiting, unspecified (principal); E10.69 Type 1 diabetes mellitus with other specified complication; E86.0 Dehydration; E87.6 Hypokalemia; E83.42 Hypomagnesemia; Z79.4 Long term (current) use of insulin; Z87.11 Personal history of peptic ulcer disease
CPT/HCPCS: 36415; 80048; 80053; 80307; 81003; 81025; 82010; 82948; 83735; 84100; 85025; 96360; 96361; 96365; 96366; 96375; 99285; G0378; G0379; J1200; J1630; J1815; J2405; J2765; J3475; J7120

== ENCOUNTER 2024-02-27 17:01 | Inpatient (IN) | payer BC, SELFPAY ==
[2024-02-27] VITALS (35 sets, daily range): BP systolic 120–151; BP diastolic 54–99; PULSE 77–143; RESP 11–37; TEMP 36.2–36.6; O2SAT 96–100
--- NOTE | ~2024-02-27 | US_ITS ---
EXAMINATION: US OB <=14 wk fetus w TV DATE: 02/28/2024 10:41 INDICATION: Early . TECHNIQUE: Real-time transabdominal and transvaginal pelvic ultrasound was performed. COMPARISON: None. FINDINGS: TRANSABDOMINAL ULTRASOUND: The uterus measures 9.0 x 4.5 x 4.1 cm. TRANSVAGINAL ULTRASOUND: The endometrial complex measures 11 mm in thickness. There is no visible int rauterine gestational sac. The right ovary measures 2.8 x 1.6 x 1.7 cm. The left ovary measures 2.7 x 2.1 x 2.6 cm. There is normal vascular flow in the ovaries. There is physiologic free fluid in the pelvis. IMPRESSION: 1. No visible intrauterine gestational sac, which may be normal in early . Spontaneous abor tion and ectopic are not excluded. Serial beta-hCGs are recommended. Reviewed, dictated and finalized at location B. IMPRESSION: 1. No visible intrauterine gestational sac, which may be normal in early pregn nahum. Spontaneous and ectopic are not excluded. Serial beta- hCGs are recommended.
--- NOTE | ~2024-02-27 | XR_ITS ---
XR chest 1V portable DATE: 02/27/2024 18:53 INDICATION: Cough TECHNIQUE: Portable upright AP chest on 02/27/2024 at 1851 hours COMPARISON: 05/13/2023 chest FINDINGS: Normal heart size. No hilar or mediastinal enlargement. No pulmonary infiltrate or consolid ation, pleural effusion or pulmonary vascular congestion or pneumothorax. Included skeletal structure s are unremarkable. IMPRESSION: No active cardiopulmonary disease Reviewed, dictated and finalized at location A.
--- NOTE | 2024-02-27 17:26 | ED_ITS ---
HPI - Nausea/Vomiting/Diarrhea General Chief complaint: Nausea/Vomiting/Diarrhea <Franco Caro PA-C - Last Filed: 02/28/24 01:59> Stated complaint: n/v, T1 diabetic <Franco Caro PA-C - Last Filed: 02/28/24 01:59> Time Seen by Provider: 02/27/24 17:15 <Franco Caro PA-C - Last Filed: 02/28/24 01:59> Source: patient <Franco Caro PA-C - Last Filed: 02/28/24 01:59> Mode of arrival: ambulatory <ALPESH Fuentes Last Filed: 02/28/24 01:59> Limitations: no limitations <Franco Caro PA-C Last Filed: 02/28/24 01:59> History of Present Illness HPI Narrative: This is a 28-year-old female who presents to the ED for chief complaint of N/V/D beginning this morning. Patient states current glucose on the Dexcom has been 198. When asked about her sugars she states they have been ?fine. ? Patient states that she has been in DKA a lot in the past and is concern for the same today. <Franco Caro PA-C - Last Filed: 02/28/24 01:59> Related Data Home medications: Home Medications Medication Instructions Recorded Confirmed insulin lispro 100 unit/mL See Rx Instructions .Route .COMPLEX 02/28/24 02/28/24 subcutaneous solution <Franco Caro PA-C Last Filed: 02/28/24 01:59> Allergies/Adverse reactions: Allergies Allergy/AdvReac Type Severity Reaction Status Date / Time No Known Allergies Allergy Unknown Verified 02/28/24 01:52 <Franco Caro PA-C - Last Filed: 02/28/24 01:59> Review of Systems Review of Systems: All systems as dictated in HPI <Franco Caro PA-C Last Filed: 02/28/24 01:59> [facility] Past Medical History Medical History: Medical History Abdominal pain Chronic abdominal pain Anxiety Finger fracture Gastric ulcer On recent EGD at [facility] Type 1 diabetes mellitus <Franco Caro PA-C - Last Filed: 02/28/24 01:59> Surgical History Surgical History: Surgical History Hx of section 2017 Hx of dilation and curettage 2019 following missed ab Hx of tonsillectomy <Franco Caro PA-C - Last Filed: 02/28/24 01:59> Family History Family History: Family History Mother Family history of anemia Father Unknown family medical history Other Family history of arthritis Family history of hepatitis Family history of liver disease <ALPESH Fuentes Last Filed: 02/28/24 01:59> Social History Social History: Social History (Updated 02/28/24 @ 07:31 by Winter Pickering DO) Social History: She lives at home with her 7-year-old daughter and her 1-year-old. She denies any alcohol tobacco or illicit substance use. she is engaged to be . Code status: Full code Surrogate decision maker: Karen Fuchs (mother) Smoking status: Never smoker Alcohol intake: never Substance use: never Substance use type: does not use Do You Feel Safe in your Home?: Yes Lack of Transportation: No Lack of Food: Never True Current Housing: I Have Housing Concerned About Future Housing: No Difficulty Paying Gas/Electric Bills: No Difficulty Paying for Meds: No Currently Unemployed: No Education: Bachelor's Degree Difficulty w/ Childcare or Family Care: No Spiritual care concerns: No Agree to blood products: Yes <ALPESH Fuentes Last Filed: 02/28/24 01:59> Exam Narrative: GENERAL: Generally ill-appearing, lying in the bed on her side. She is alert and oriented HEAD: Normocephalic, atraumatic. EYES: PERRLA and EOMI. ENT: Nares clear, no rhinorrhea or epistaxis. Mucous membranes moist. Oropharynx without tonsillar hypertrophy exudate or other lesions. NECK: Supple. No adenopathy or masses. CHEST: No respiratory distress. Clear to auscultation. No wheezes rales or rhonchi HEART: Tachycardic rate, regular rhythm. No murmur heard. Normal peripheral pulses. ABDOMEN: Soft, nontender, nondistended, normal active bowel sounds. MSK: Normal range of motion. No edema. SKIN: Warm, dry, no rash. NEURO: Alert and oriented x4. No focal deficits. PSYCH: Normal mood and affect. <Franco Caro PA-C - Last Filed: 02/28/24 01:59> Course 911 EMERGENCY DISPATCHER/PA Physician Supervision ZOLTAN and I discussed patient's persistent tachycaria and intractable nausea/vomiting s/p 3 L IV fluids. No complaint of shortness of breath and not hypoxic. No other findings concerning for thyroid crisis. Her tachycardia and her labs had improved but patient was still symptomatic so being admitted. I did not personally examine this patient and was not involved in their care. <Екатерина Carpenter MD - Last Filed: 02/29/24 02:40> Vital Signs Vital signs: Vital Signs Temperature 97.1 F L 02/27/24 17:03 Pulse Rate 119 H 02/27/24 17:03 Respiratory Rate 14 02/27/24 17:03 Blood Pressure 148/74 H 02/27/24 17:03 Pulse Oximetry 100 02/27/24 17:03 Temperature 97.0 F L 02/28/24 22:00 Pulse Rate 99 02/29/24 00:00 Respiratory Rate 14 02/28/24 22:00 Blood Pressure 128/76 02/28/24 22:00 Pulse Oximetry 100 02/28/24 22:00 Oxygen Delivery Room Air 02/28/24 21:41 <Franco Caro PA-C - Last Filed: 02/28/24 01:59> Vital Signs Temperature 97.1 F L 02/27/24 17:03 Pulse Rate 119 H 02/27/24 17:03 Respiratory Rate 14 02/27/24 17:03 Blood Pressure 148/74 H 02/27/24 17:03 Pulse Oximetry 100 02/27/24 17:03 Temperature 97.0 F L 02/28/24 22:00 Pulse Rate 99 02/29/24 00:00 Respiratory Rate 14 02/28/24 22:00 Blood Pressure 128/76 02/28/24 22:00 Pulse Oximetry 100 02/28/24 22:00 Oxygen Delivery Room Air 02/28/24 21:41 <Marie Carpenter MD - Last Filed: 02/29/24 02:40> MDM - Nausea/Vomiting/Diarrhea MDM Narrative Medical decision making narrative: This is a 28-year-old female who presents to the ED for chief complaint of intractable nausea and vomiting. She is a type 1 diabetic. Vitals show elevated heart rate on arrival but hemodynamically stable with no fever. Exam shows no abdominal tenderness. No evidence of acute abdomen on exam. Lab work shows mildly elevated anion gap with slightly low bicarb on the CMP. No significant electrolyte derangements. Blood glucose 199 on arrival. Beta hydroxybutyrate is 1.39, however suspect more starvation ketosis rather than full bone DKA. White count only at 11.1 today. No urinary tract infection on the UA. Chest x-ray without pneumonia, so do not feel there is any infectious component to this visit. Patient has been admitted here multiple times for the same complaint. I attempted Zofran, Reglan, Benadryl and Tigan with no relief of her nausea. She was also given 3 L of fluids which did help bring the tachycardia down to the 110s. Remains hemodynamically stable. Patient was given the option for admission versus discharge and she would prefer to be admitted at this time. Discussed with the hospitalist, Dr. Pickering who will admit the patient for intractable N/V Patient will be admitted in stable condition. <Franco Caro PA-C - Last Filed: 02/28/24 01:59> Lab Data Result diagrams: 02/28/24 05:39 02/28/24 09:55 <Franco Caro PA-C - Last Filed: 02/28/24 01:59> Labs: Lab Results 02/27/24 02/27/24 02/27/24 Range/Units 17:26 17:44 17:44 WBC 11.1 H (4.5-10.0) K/mm3 RBC 4.73 (4.2-5.4) M/mm3 Hgb 14.2 (12.0-15.0) g/dL Hct 41.7 (37.0-47.0) % MCV 88.2 (80-100) fl MCH 30.0 (26-34) pg MCHC 34.1 (32-36) g/dl RDW 13.4 (11.5-14.5) % Plt Count 412 H D (150-375) k/mm3 MPV 8.9 (7.4-10.4) fl Immature Gran % (Auto) 0.4 (0-0.5) % Neut % (Auto) 88.4 H (45.5-73.1) % Lymph % (Auto) 7.5 L (18.3-44.2) % [place] % (Auto) 3.4 (2.6-8.5) % Eos % (Auto) 0.0 (0-4.4) % Baso % (Auto) 0.3 (0.2-1.2) % Lymph # (Auto) 0.83 L (0.9-3.2) K/mm3 [place] # (Auto) 0.4 (0.1-0.6) K/mm3 Eos # (Auto) 0.0 (0-0.3) K/mm3 Baso # (Auto) 0.0 (0.0-0.1) K/mm3 Abs Immat Gran (auto) 0.04 H (0.00-0.031) K/mm3 Absolute Neuts (auto) 9.8 H (1.3-6.7) K/mm3 Absolute Nucleated RBC 0.000 (0.0-0.012) K/mm3 Nucleated RBC % 0.0 (0.0-0.2) % Sodium 137 (137-145) mmol/L Potassium 4.2 (3.4-5.0) mmol/L Chloride 103 (98-107) mmol/L Carbon Dioxide 20 L (22-30) mmol/L Anion Gap 14 H (4-12) mmol/L BUN 16 (7-17) mg/dL Creatinine 0.40 L (0.7-1.0) mg/dL Estim Creat Clear Calc 179 ml/min Estimated GFR > 60 (59 - ) Glucose 198 H (65-110) mg/dL POC Capillary Glucose 199 H (65-105) mg/dl Lactic Acid (0.7-2.0) mmol/L Calcium 9.5 (8.4-10.2) mg/dL Total Bilirubin 0.8 (0.2-1.3) mg/dL AST 23 (14-36) U/L ALT 15 (6-35) U/L Alkaline Phosphatase 74 (38-126) U/L Total Protein 8.0 (6.3-8.2) g/dL Albumin 4.8 (3.5-5.1) g/dL Lipase 28 (23-300) U/L Beta-Hydroxybutyrate/Acetoacetate 1.39 H Cancelled (0.02-0.27) mmol/L TSH (Reflex) 2.650 (0.465-4.68) uIU/mL Serum HCG, Qual Positive A Beta HCG, Quant mIU/ML Urine Color (Yellow) Urine Appearance (Clear) Urine pH (5.0-9.0) Ur Specific Crystal (1.001-1.035) Urine Protein (Negative) mg/dL Urine Glucose (UA) (Negative) mg/dL Urine Ketones (Negative) mg/dL Ur Blood (Man) (Negative) Urine Nitrate (Negative) Urine Bilirubin (Negative) Urine Urobilinogen (<2.0) mg/dL Leukocyte Esterase Rfl (Negative) JEWEL/UL Urine RBC (0-2) /hpf Urine WBC (0-3) /hpf Ur Squamous Epith Cells (Few) /hpf Urine Bacteria /hpf Urine Casts 02/27/24 02/27/24 02/27/24 Range/Units 17:49 20:58 22:46 WBC (4.5-10.0) K/mm3 RBC (4.2-5.4) M/mm3 Hgb (12.0-15.0) g/dL Hct (37.0-47.0) % MCV (80-100) fl MCH (26-34) pg MCHC (32-36) g/dl RDW (11.5-14.5) % Plt Count (150-375) k/mm3 MPV (7.4-10.4) fl Immature Gran % (Auto) (0-0.5) % Neut % (Auto) (45.5-73.1) % Lymph % (Auto) (18.3-44.2) % [place] % (Auto) (2.6-8.5) % Eos % (Auto) (0-4.4) % Baso % (Auto) (0.2-1.2) % Lymph # (Auto) (0.9-3.2) K/mm3 [place] # (Auto) (0.1-0.6) K/mm3 Eos # (Auto) (0-0.3) K/mm3 Baso # (Auto) (0.0-0.1) K/mm3 Abs Immat Gran (auto) (0.00-0.031) K/mm3 Absolute Neuts (auto) (1.3-6.7) K/mm3 Absolute Nucleated RBC (0.0-0.012) K/mm3 Nucleated RBC % (0.0-0.2) % Sodium 133 L (137-145) mmol/L Potassium 4.2 (3.4-5.0) mmol/L Chloride 104 (98-107) mmol/L Carbon Dioxide 18 L (22-30) mmol/L Anion Gap 11 (4-12) mmol/L BUN 13 (7-17) mg/dL Creatinine 0.40 L (0.7-1.0) mg/dL Estim Creat Clear Calc 179 ml/min Estimated GFR > 60 (59 - ) Glucose 111 H (65-110) mg/dL POC Capillary Glucose (65-105) mg/dl Lactic Acid 1.7 (0.7-2.0) mmol/L Calcium 9.3 (8.4-10.2) mg/dL Total Bilirubin (0.2-1.3) mg/dL AST (14-36) U/L ALT (6-35) U/L Alkaline Phosphatase (38-126) U/L Total Protein (6.3-8.2) g/dL Albumin (3.5-5.1) g/dL Lipase (23-300) U/L Beta-Hydroxybutyrate/Acetoacetate (0.02-0.27) mmol/L TSH (Reflex) (0.465-4.68) uIU/mL Serum HCG, Qual Beta HCG, Quant mIU/ML Urine Color Yellow (Yellow) Urine Appearance Clear (Clear) Urine pH 6.5 (5.0-9.0) Ur Specific Crystal 1.023 (1.001-1.035) Urine Protein Trace (Negative) mg/dL Urine Glucose (UA) 3+ H (Negative) mg/dL Urine Ketones 3+ H (Negative) mg/dL Ur Blood (Man) Negative (Negative) Urine Nitrate Negative (Negative) Urine Bilirubin Negative (Negative) Urine Urobilinogen 0.2 (<2.0) mg/dL Leukocyte Esterase Rfl Negative (Negative) JEWEL/UL Urine RBC 0-2 (0-2) /hpf Urine WBC 0-5 (0-3) /hpf Ur Squamous Epith Cells Occasional (Few) /hpf Urine Bacteria None seen /hpf Urine Casts 0-2 02/28/24 02/28/24 Range/Units 04:00 05:39 WBC 14.5 H (4.5-10.0) K/mm3 RBC 4.27 (4.2-5.4) M/mm3 Hgb 13.0 (12.0-15.0) g/dL Hct 37.7 (37.0-47.0) % MCV 88.3 (80-100) fl MCH 30.4 (26-34) pg MCHC 34.5 (32-36) g/dl RDW 13.2 (11.5-14.5) % Plt Count 399 H (150-375) k/mm3 MPV 9.3 (7.4-10.4) fl Immature Gran % (Auto) (0-0.5) % Neut % (Auto) (45.5-73.1) % Lymph % (Auto) (18.3-44.2) % [place] % (Auto) (2.6-8.5) % Eos % (Auto) (0-4.4) % Baso % (Auto) (0.2-1.2) % Lymph # (Auto) (0.9-3.2) K/mm3 [place] # (Auto) (0.1-0.6) K/mm3 Eos # (Auto) (0-0.3) K/mm3 Baso # (Auto) (0.0-0.1) K/mm3 Abs Immat Gran (auto) (0.00-0.031) K/mm3 Absolute Neuts (auto) (1.3-6.7) K/mm3 Absolute Nucleated RBC (0.0-0.012) K/mm3 Nucleated RBC % (0.0-0.2) % Sodium 129 L (137-145) mmol/L Potassium 3.8 (3.4-5.0) mmol/L Chloride 99 (98-107) mmol/L Carbon Dioxide 16 L (22-30) mmol/L Anion Gap 14 H (4-12) mmol/L BUN 10 (7-17) mg/dL Creatinine 0.40 L (0.7-1.0) mg/dL Estim Creat Clear Calc 179 ml/min Estimated GFR > 60 (59 - ) Glucose 262 H (65-110) mg/dL POC Capillary Glucose 163 H (65-105) mg/dl Lactic Acid (0.7-2.0) mmol/L Calcium 8.9 (8.4-10.2) mg/dL Total Bilirubin (0.2-1.3) mg/dL AST (14-36) U/L ALT (6-35) U/L Alkaline Phosphatase (38-126) U/L Total Protein (6.3-8.2) g/dL Albumin (3.5-5.1) g/dL Lipase (23-300) U/L Beta-Hydroxybutyrate/Acetoacetate (0.02-0.27) mmol/L TSH (Reflex) (0.465-4.68) uIU/mL Serum HCG, Qual Beta HCG, Quant 105.06 mIU/ML Urine Color (Yellow) Urine Appearance (Clear) Urine pH (5.0-9.0) Ur Specific Crystal (1.001-1.035) Urine Protein (Negative) mg/dL Urine Glucose (UA) (Negative) mg/dL Urine Ketones (Negative) mg/dL Ur Blood (Man) (Negative) Urine Nitrate (Negative) Urine Bilirubin (Negative) Urine Urobilinogen (<2.0) mg/dL Leukocyte Esterase Rfl (Negative) JEWEL/UL Urine RBC (0-2) /hpf Urine WBC (0-3) /hpf Ur Squamous Epith Cells (Few) /hpf Urine Bacteria /hpf Urine Casts <Franco Caro PA-C - Last Filed: 02/28/24 01:59> Lab Results 02/27/24 02/27/24 02/27/24 Range/Units 17:26 17:44 17:44 WBC 11.1 H (4.5-10.0) K/mm3 RBC 4.73 (4.2-5.4) M/mm3 Hgb 14.2 (12.0-15.0) g/dL Hct 41.7 (37.0-47.0) % MCV 88.2 (80-100) fl MCH 30.0 (26-34) pg MCHC 34.1 (32-36) g/dl RDW 13.4 (11.5-14.5) % Plt Count 412 H D (150-375) k/mm3 MPV 8.9 (7.4-10.4) fl Immature Gran % (Auto) 0.4 (0-0.5) % Neut % (Auto) 88.4 H (45.5-73.1) % Lymph % (Auto) 7.5 L (18.3-44.2) % [place] % (Auto) 3.4 (2.6-8.5) % Eos % (Auto) 0.0 (0-4.4) % Baso % (Auto) 0.3 (0.2-1.2) % Lymph # (Auto) 0.83 L (0.9-3.2) K/mm3 [place] # (Auto) 0.4 (0.1-0.6) K/mm3 Eos # (Auto) 0.0 (0-0.3) K/mm3 Baso # (Auto) 0.0 (0.0-0.1) K/mm3 Abs Immat Gran (auto) 0.04 H (0.00-0.031) K/mm3 Absolute Neuts (auto) 9.8 H (1.3-6.7) K/mm3 Absolute Nucleated RBC 0.000 (0.0-0.012) K/mm3 Nucleated RBC % 0.0 (0.0-0.2) % Sodium 137 (137-145) mmol/L Potassium 4.2 (3.4-5.0) mmol/L Chloride 103 (98-107) mmol/L Carbon Dioxide 20 L (22-30) mmol/L Anion Gap 14 H (4-12) mmol/L BUN 16 (7-17) mg/dL Creatinine 0.40 L (0.7-1.0) mg/dL Estim Creat Clear Calc 179 ml/min Estimated GFR > 60 (59 - ) Glucose 198 H (65-110) mg/dL POC Capillary Glucose 199 H (65-105) mg/dl Lactic Acid (0.7-2.0) mmol/L Calcium 9.5 (8.4-10.2) mg/dL Total Bilirubin 0.8 (0.2-1.3) mg/dL AST 23 (14-36) U/L ALT 15 (6-35) U/L Alkaline Phosphatase 74 (38-126) U/L Total Protein 8.0 (6.3-8.2) g/dL Albumin 4.8 (3.5-5.1) g/dL Lipase 28 (23-300) U/L Beta-Hydroxybutyrate/Acetoacetate 1.39 H Cancelled (0.02-0.27) mmol/L TSH (Reflex) 2.650 (0.465-4.68) uIU/mL Serum HCG, Qual Positive A Beta HCG, Quant mIU/ML Urine Color (Yellow) Urine Appearance (Clear) Urine pH (5.0-9.0) Ur Specific Crystal (1.001-1.035) Urine Protein (Negative) mg/dL Urine Glucose (UA) (Negative) mg/dL Urine Ketones (Negative) mg/dL Ur Blood (Man) (Negative) Urine Nitrate (Negative) Urine Bilirubin (Negative) Urine Urobilinogen (<2.0) mg/dL Leukocyte Esterase Rfl (Negative) JEWEL/UL Urine RBC (0-2) /hpf Urine WBC (0-3) /hpf Ur Squamous Epith Cells (Few) /hpf Urine Bacteria /hpf Urine Casts 02/27/24 02/27/24 02/27/24 Range/Units 17:49 20:58 22:46 WBC (4.5-10.0) K/mm3 RBC (4.2-5.4) M/mm3 Hgb (12.0-15.0) g/dL Hct (37.0-47.0) % MCV (80-100) fl MCH (26-34) pg MCHC (32-36) g/dl RDW (11.5-14.5) % Plt Count (150-375) k/mm3 MPV (7.4-10.4) fl Immature Gran % (Auto) (0-0.5) % Neut % (Auto) (45.5-73.1) % Lymph % (Auto) (18.3-44.2) % [place] % (Auto) (2.6-8.5) % Eos % (Auto) (0-4.4) % Baso % (Auto) (0.2-1.2) % Lymph # (Auto) (0.9-3.2) K/mm3 [place] # (Auto) (0.1-0.6) K/mm3 Eos # (Auto) (0-0.3) K/mm3 Baso # (Auto) (0.0-0.1) K/mm3 Abs Immat Gran (auto) (0.00-0.031) K/mm3 Absolute Neuts (auto) (1.3-6.7) K/mm3 Absolute Nucleated RBC (0.0-0.012) K/mm3 Nucleated RBC % (0.0-0.2) % Sodium 133 L (137-145) mmol/L Potassium 4.2 (3.4-5.0) mmol/L Chloride 104 (98-107) mmol/L Carbon Dioxide 18 L (22-30) mmol/L Anion Gap 11 (4-12) mmol/L BUN 13 (7-17) mg/dL Creatinine 0.40 L (0.7-1.0) mg/dL Estim Creat Clear Calc 179 ml/min Estimated GFR > 60 (59 - ) Glucose 111 H (65-110) mg/dL POC Capillary Glucose (65-105) mg/dl Lactic Acid 1.7 (0.7-2.0) mmol/L Calcium 9.3 (8.4-10.2) mg/dL Total Bilirubin (0.2-1.3) mg/dL AST (14-36) U/L ALT (6-35) U/L Alkaline Phosphatase (38-126) U/L Total Protein (6.3-8.2) g/dL Albumin (3.5-5.1) g/dL Lipase (23-300) U/L Beta-Hydroxybutyrate/Acetoacetate (0.02-0.27) mmol/L TSH (Reflex) (0.465-4.68) uIU/mL Serum HCG, Qual Beta HCG, Quant mIU/ML Urine Color Yellow (Yellow) Urine Appearance Clear (Clear) Urine pH 6.5 (5.0-9.0) Ur Specific Crystal 1.023 (1.001-1.035) Urine Protein Trace (Negative) mg/dL Urine Glucose (UA) 3+ H (Negative) mg/dL Urine Ketones 3+ H (Negative) mg/dL Ur Blood (Man) Negative (Negative) Urine Nitrate Negative (Negative) Urine Bilirubin Negative (Negative) Urine Urobilinogen 0.2 (<2.0) mg/dL Leukocyte Esterase Rfl Negative (Negative) JEWEL/UL Urine RBC 0-2 (0-2) /hpf Urine WBC 0-5 (0-3) /hpf Ur Squamous Epith Cells Occasional (Few) /hpf Urine Bacteria None seen /hpf Urine Casts 0-2 02/28/24 02/28/24 Range/Units 04:00 05:39 WBC 14.5 H (4.5-10.0) K/mm3 RBC 4.27 (4.2-5.4) M/mm3 Hgb 13.0 (12.0-15.0) g/dL Hct 37.7 (37.0-47.0) % MCV 88.3 (80-100) fl MCH 30.4 (26-34) pg MCHC 34.5 (32-36) g/dl RDW 13.2 (11.5-14.5) % Plt Count 399 H (150-375) k/mm3 MPV 9.3 (7.4-10.4) fl Immature Gran % (Auto) (0-0.5) % Neut % (Auto) (45.5-73.1) % Lymph % (Auto) (18.3-44.2) % [place] % (Auto) (2.6-8.5) % Eos % (Auto) (0-4.4) % Baso % (Auto) (0.2-1.2) % Lymph # (Auto) (0.9-3.2) K/mm3 [place] # (Auto) (0.1-0.6) K/mm3 Eos # (Auto) (0-0.3) K/mm3 Baso # (Auto) (0.0-0.1) K/mm3 Abs Immat Gran (auto) (0.00-0.031) K/mm3 Absolute Neuts (auto) (1.3-6.7) K/mm3 Absolute Nucleated RBC (0.0-0.012) K/mm3 Nucleated RBC % (0.0-0.2) % Sodium 129 L (137-145) mmol/L Potassium 3.8 (3.4-5.0) mmol/L Chloride 99 (98-107) mmol/L Carbon Dioxide 16 L (22-30) mmol/L Anion Gap 14 H (4-12) mmol/L BUN 10 (7-17) mg/dL Creatinine 0.40 L (0.7-1.0) mg/dL Estim Creat Clear Calc 179 ml/min Estimated GFR > 60 (59 - ) Glucose 262 H (65-110) mg/dL POC Capillary Glucose 163 H (65-105) mg/dl Lactic Acid (0.7-2.0) mmol/L Calcium 8.9 (8.4-10.2) mg/dL Total Bilirubin (0.2-1.3) mg/dL AST (14-36) U/L ALT (6-35) U/L Alkaline Phosphatase (38-126) U/L Total Protein (6.3-8.2) g/dL Albumin (3.5-5.1) g/dL Lipase (23-300) U/L Beta-Hydroxybutyrate/Acetoacetate (0.02-0.27) mmol/L TSH (Reflex) (0.465-4.68) uIU/mL Serum HCG, Qual Beta HCG, Quant 105.06 mIU/ML Urine Color (Yellow) Urine Appearance (Clear) Urine pH (5.0-9.0) Ur Specific Crystal (1.001-1.035) Urine Protein (Negative) mg/dL Urine Glucose (UA) (Negative) mg/dL Urine Ketones (Negative) mg/dL Ur Blood (Man) (Negative) Urine Nitrate (Negative) Urine Bilirubin (Negative) Urine Urobilinogen (<2.0) mg/dL Leukocyte Esterase Rfl (Negative) JEWEL/UL Urine RBC (0-2) /hpf Urine WBC (0-3) /hpf Ur Squamous Epith Cells (Few) /hpf Urine Bacteria /hpf Urine Casts <Marie Carpenter MD - Last Filed: 02/29/24 02:40> Discharge Plan Discharge Clinical Impression: Intractable nausea and vomiting <Franco Caro PA-C - Last Filed: 02/28/24 01:59> Patient Disposition: Still a Patient <Franco Caro PA-C - Last Filed: 02/28/24 01:59> Condition: Stable <Franco Caro PA-C - Last Filed: 02/28/24 01:59>
[2024-02-27 17:29] LABS: Glucose Point of Care 199 mg/dl (65-105)
[2024-02-27 17:49] LABS: Basophils Percent Auto 0.3 % (0.2-1.2); Hematocrit 41.7 % (37.0-47.0); Hemoglobin 14.2 g/dL (12.0-15.0); Immature Granulocyte Absolute 0.04 K/mm3 (0.00-0.031); Immature Granulocyte Percent A 0.4 % (0-0.5); Lymphocytes Absolute Auto 0.83 K/mm3 (0.9-3.2); Lymphocytes Percent Auto 7.5 % (18.3-44.2); Mean Corpuscular HGB Conc 34.1 g/dl (32-36); Mean Corpuscular Volume 88.2 fl (80-100); Mean Platelet Volume 8.9 fl (7.4-10.4); Monocytes Absolute Auto 0.4 K/mm3 (0.1-0.6); Monocytes Percent Auto 3.4 % (2.6-8.5); Neutrophils Absolute Auto 9.8 K/mm3 (1.3-6.7); Neutrophils Percent Auto 88.4 % (45.5-73.1); Platelet Count Result 412 k/mm3 (150-375); Red Blood Count 4.73 M/mm3 (4.2-5.4); Red Cell Distribution Width 13.4 % (11.5-14.5); White Blood Count 11.1 K/mm3 (4.5-10.0)
--- NOTE | 2024-02-27 17:55 | ECG_ITS ---
Test Date: 2024-02-27 18:35:24 Measurements Intervals [place] Rate: 116 P: 53 CO: 112 QRS: 82 QRSD: 76 T: 25 QT: 318 QTc: 442 Interpretive Statements SINUS TACHYCARDIA WITH SHORT CO INTERVAL POSSIBLE LEFT ATRIAL ENLARGEMENT [-0.1mV P-WAVE IN V1/V2] MODERATE ST DEPRESSION [0.05+ mV ST DEPRESSION] No previous ECG available for comparison Electronically Signed On 02-28-2024 10:53:47 CDT by Chuck Kirk M.D.
[2024-02-27 18:04] LABS: Alanine Aminotransferase 15 U/L (6-35); Albumin Level 4.8 g/dL (3.5-5.1); Alkaline Phosphatase 74 U/L (38-126); Anion Gap 14 mmol/L (4-12); Aspartate Amino Transferase 23 U/L (14-36); Bilirubin,Total 0.8 mg/dL (0.2-1.3); Blood Urea Nitrogen 16 mg/dL (7-17); Calcium 9.5 mg/dL (8.4-10.2); Carbon Dioxide 20 mmol/L (22-30); Chloride 103 mmol/L (98-107); Estimated CRCL calculation 179 ml/min; Estimated Glomerular Filt Rate > 60; Glucose 198 mg/dL (65-110); Lipase 28 U/L (23-300); Potassium 4.2 mmol/L (3.4-5.0); Sodium 137 mmol/L (137-145)
[2024-02-27 18:06] LABS: Lactic Acid Reflex 1.7 mmol/L (0.7-2.0)
[2024-02-27 18:18] LABS: Beta-Hydroxybutyrate/Acetoacetate 1.39 mmol/L (0.02-0.27)
[2024-02-27] MEDS: LACTATED RINGERS 1,000 ML 999 ML IV CONT ×3 (18:39→20:05)
[2024-02-27] MEDS: ONDANSETRON INJ 4 MG/2 ML VIAL IV PUSH (18:39)
--- NOTE | 2024-02-27 19:40 | PC.NURSE ---
Report received from MARY Abraham. Assumed care of patient at this time.
--- NOTE | 2024-02-27 20:18 | PC.NURSE ---
pt continues to refuse to provide urine specimen
[2024-02-27] MEDS: METOCLOPRAMIDE HCL INJ 10 MG/2 ML VIAL IV PUSH (20:39)
[2024-02-27] MEDS: diphenhydrAMINE HCl INJ 50 MG/ML VIAL 25 MG IV PUSH (20:39)
[2024-02-27 21:12] LABS: Add Urine Microscopic? YES; Appearance Urine Clear (Clear); Bacteria Urine None Seen /hpf; Bilirubin Urine Negative (Negative); Blood Urine Negative (Negative); Color Urine Yellow (Yellow); Glucose Urine UA 3+ mg/dL (Negative); Ketones Urine 3+ mg/dL (Negative); Leukocyte Esterase Ur Negative LEU/UL (Negative); Nitrate Urine Negative (Negative); Non Pathogenic Casts 0-2; Protein Urine Trace mg/dL (Negative); RBC Urine 0-2 /hpf (0-2); Specific Grav Ur 1.023 (1.001-1.035); Squamous Epithelial Cell Urine Occasional /hpf (Few); Urobilinogen Urine 0.2 mg/dL (<2.0); WBC Urine 0-5 /hpf (0-3); pH Urine 6.5 (5.0-9.0)
--- NOTE | 2024-02-27 22:22 | PC.NURSE ---
Patients mother calls to get update.
[2024-02-27 23:09] LABS: Anion Gap 11 mmol/L (4-12); Blood Urea Nitrogen 13 mg/dL (7-17); Calcium 9.3 mg/dL (8.4-10.2); Carbon Dioxide 18 mmol/L (22-30); Chloride 104 mmol/L (98-107); Estimated CRCL calculation 179 ml/min; Estimated Glomerular Filt Rate > 60; Glucose 111 mg/dL (65-110); Potassium 4.2 mmol/L (3.4-5.0); Sodium 133 mmol/L (137-145)
[2024-02-27] MEDS: TRIMETHOBENZAMIDE HCL 200 MG/2 ML VIAL IM (23:38)
[2024-02-28] VITALS (23 sets, daily range): BP systolic 114–164; BP diastolic 62–103; PULSE 99–140; RESP 12–32; TEMP 36.1–36.6; O2SAT 98–100; BMI 31.5
--- NOTE | 2024-02-28 02:01 | PC.NURSE ---
Patient non-compliant during admission question/answer. RN repeatedly asked questions; history recalled. Patient denies significant health history aside from diabetes. Patient has a CGM and insulin pump; patient states her basal rate for insulin pump is 8 and refused to answer additional questions pertaining to use of insulin. Patient denies use of home medication other than insulin.
--- NOTE | 2024-02-28 02:13 | ADMGEN ---
This patient, Karina Fuchs, was admitted to 2 Medical Room 241-01. Patient/family oriented to hospital policies and general routines including ID bracelet, bed and alarms, visiting hours, pain management, procedures, bathroom and other care routines, personal items, smoking policy, room service/diet, and visiting hours. Information on how to activate the Rapid Response Team has been discussed. Patient/Family are encouraged to report perceived risks to care and to ask questions if they do not understand what they are told or what they should do.
--- NOTE | 2024-02-28 02:18 | PC.NURSE ---
verified with patient that insulin pump has been removed per self
[2024-02-28] MEDS: FAMOTIDINE 20 MG/2 ML VIAL IV PUSH ×3 (02:36→21:41)
[2024-02-28] MEDS: DEXTROSE 5%/0.45% SOD CHL 1,000 ML 125 ML IV CONT (02:38)
[2024-02-28 03:54] LABS: SPREG INTERNAL CONTROL Positive; Serum Qual hCG Positive
[2024-02-28 04:04] LABS: Glucose Point of Care 163 mg/dl (65-105)
[2024-02-28] MEDS: PROMETHAZINE HCL 25 MG/ML AMPUL IM (04:16)
[2024-02-28 06:17] LABS: Hematocrit 37.7 % (37.0-47.0); Mean Corpuscular HGB Conc 34.5 g/dl (32-36); Mean Corpuscular Hemoglobin 30.4 pg (26-34); Mean Corpuscular Volume 88.3 fl (80-100); Mean Platelet Volume 9.3 fl (7.4-10.4); Platelet Count Result 399 k/mm3 (150-375); Red Blood Count 4.27 M/mm3 (4.2-5.4); Red Cell Distribution Width 13.2 % (11.5-14.5); White Blood Count 14.5 K/mm3 (4.5-10.0)
[2024-02-28 06:29] LABS: Anion Gap 14 mmol/L (4-12); Blood Urea Nitrogen 10 mg/dL (7-17); Calcium 8.9 mg/dL (8.4-10.2); Carbon Dioxide 16 mmol/L (22-30); Chloride 99 mmol/L (98-107); Estimated CRCL calculation 179 ml/min; Estimated Glomerular Filt Rate > 60; Glucose 262 mg/dL (65-110); Potassium 3.8 mmol/L (3.4-5.0); Sodium 129 mmol/L (137-145)
[2024-02-28 06:44] LABS: Beta HCG Quantitative 105.06 mIU/ML
--- NOTE | 2024-02-28 06:48 | P.HP_ITS ---
H&P: HPI History of Present Illness Date/Time: 02/28/24 05:48 Chief Complaint: Nausea vomiting, she was concerned she has been having a lot of DKA Narrative: 28-year-old female with a past medical history of type 1 diabetes mellitus with multiple admissions for DKA, intractable nausea vomiting, dehydration and chronic abdominal pain who presented to the ER with 24 hours of intractable nausea vomiting. the patient reports that she was so nauseated that she was having multiple episodes of dry heaves. She has not had any fevers or chills. She reports intermittent frequent episodes of diarrhea with 1 episode of loose stools yesterday. On arrival to the ER she had heart rates in the 140s. She received 3 L of LR in her heart rate came down into the 110s. She initially had a mild anion gap and a minimally elevated beta hydroxy butyrate but her anion gap closed after receiving fluids. She was euglycemic. She was still having intractable nausea vomiting despite receiving Pepcid,Reglan, Zofran and and Tigan. She denies any hematemesis, coffee-ground emesis or hematochezia. She reports that she still feels extremely nauseated and has no desire to eat or drink. the patient was initially refusing to give staff a urine specimen. Subsequently a serum HCT was ordered but was not obtained until after the patient arrived to the medical floor. The patient's hCG was positive. She reports that she thinks the start of her last menstrual cycle was the 1st week in January But she is not sure. She had a urine test performed during her last hospitalization on the that was negative. on arrival to the medical floor the patient decided of her own accord to remove her insulin pump. She was not instructed to remove her insulin pump. The patient evidently had her insulin pump off for approximately 4 hours prior to time of my evaluation. I requested nursing staff have the patient place insulin pump back on. The patient has an insulin pump that communicates with her continuous glucose monitor to achieve euglycemia. Lab had drawn the patient's most recent BMP just prior to her placing her insulin pump back on. Her repeat BMP demonstrated slightly elevated anion gap and lower serum bicarb. This is likely due to the patient not having insulin for several hours after she removed her insulin pump. It was difficult to obtain history from the patient. Review of Systems Review of Systems: She denies any chest pain, shortness of breath, localizing abdominal pain, lo wer extremity edema, fevers, chills, recent travel, recent ill contacts. She reports that she feels weak and tired. [facility] Past Medical History Medical History Abdominal pain Chronic abdominal pain Anxiety Finger fracture Gastric ulcer On recent EGD at [facility] Type 1 diabetes mellitus Surgical History Surgical History Hx of section 2017 Hx of dilation and curettage 2019 following missed ab Hx of tonsillectomy Family History Family History Mother Family history of anemia Father Unknown family medical history Other Family history of arthritis Family history of hepatitis Family history of liver disease Social History Social History (Updated 02/28/24 @ 07:31 by Winter Pickering DO) Social History: She lives at home with her 7-year-old daughter and her 1-year-old. She denies any alcohol tobacco or illicit substance use. she is engaged to be . Code status: Full code Surrogate decision maker: Karen Fuchs (mother) Smoking status: Never smoker Alcohol intake: never Substance use: never Substance use type: does not use Do You Feel Safe in your Home?: Yes Lack of Transportation: No Lack of Food: Never True Current Housing: I Have Housing Concerned About Future Housing: No Difficulty Paying Gas/Electric Bills: No Difficulty Paying for Meds: No Currently Unemployed: No Education: Bachelor's Degree Difficulty w/ Childcare or Family Care: No Spiritual care concerns: No Agree to blood products: Yes Meds Home Medications and Allergies Home Medications Medication Instructions Recorded Confirmed Type insulin lispro 100 unit/mL See Rx Instructions .Route .COMPLEX 02/28/24 02/28/24 History subcutaneous solution Allergies Allergy/AdvReac Type Severity Reaction Status Date / Time No Known Allergies Allergy Unknown Verified 02/28/24 01:52 Vital Signs Vital Signs - 24 hr 02/27/24 17:17 02/27/24 20:05 02/27/24 17:16 Temperature 98 F Pulse Rate 121 H 119 H Respiratory Rate 15 20 Blood Pressure 136/99 H Pulse Oximetry 99 99 99 Oxygen Delivery Room Air 02/27/24 17:18 02/27/24 17:30 02/27/24 17:45 Temperature Pulse Rate 117 H 120 H 114 H Respiratory Rate 16 24 H 15 Blood Pressure 136/99 H Pulse Oximetry 98 100 Oxygen Delivery 02/27/24 18:00 02/27/24 18:15 02/27/24 18:30 Temperature Pulse Rate 120 H 77 132 H Respiratory Rate 22 H 27 H 34 H Blood Pressure Pulse Oximetry 100 100 100 Oxygen Delivery 02/27/24 18:45 02/27/24 19:00 02/27/24 19:15 Temperature Pulse Rate 113 H 113 H 113 H Respiratory Rate 25 H 20 12 Blood Pressure Pulse Oximetry 100 100 100 Oxygen Delivery 02/27/24 19:30 02/27/24 19:45 02/27/24 20:15 Temperature Pulse Rate 118 H 118 H 126 H Respiratory Rate 26 H 17 27 H Blood Pressure Pulse Oximetry 98 100 96 Oxygen Delivery 02/27/24 20:30 02/27/24 21:29 02/27/24 21:30 Temperature Pulse Rate 114 H 113 H 127 H Respiratory Rate 15 11 L 25 H Blood Pressure 132/71 Pulse Oximetry 99 100 100 Oxygen Delivery 02/27/24 21:31 02/27/24 21:32 02/27/24 21:45 Temperature Pulse Rate 112 H 110 H 143 H Respiratory Rate 16 23 H 25 H Blood Pressure 127/54 L Pulse Oximetry 98 99 100 Oxygen Delivery 02/27/24 22:00 02/27/24 22:01 02/27/24 22:15 Temperature Pulse Rate 121 H 121 H 113 H Respiratory Rate 23 H 27 H 18 Blood Pressure 151/83 H Pulse Oximetry 100 100 100 Oxygen Delivery 02/27/24 22:16 02/27/24 22:30 02/27/24 22:45 Temperature Pulse Rate 111 H 117 H 113 H Respiratory Rate 18 22 H 11 L Blood Pressure 120/54 L Pulse Oximetry 100 100 100 Oxygen Delivery 02/27/24 22:48 02/27/24 23:00 02/27/24 23:01 Temperature Pulse Rate 110 H 118 H 116 H Respiratory Rate 20 20 25 H Blood Pressure 147/70 H 138/97 H Pulse Oximetry 100 99 100 Oxygen Delivery 02/27/24 23:15 02/27/24 23:30 02/27/24 23:31 Temperature Pulse Rate 130 H 119 H 121 H Respiratory Rate 37 H 32 H 23 H Blood Pressure 146/93 H Pulse Oximetry 99 100 100 Oxygen Delivery 02/27/24 23:45 02/28/24 00:00 02/28/24 00:01 Temperature Pulse Rate 116 H 112 H 113 H Respiratory Rate 16 27 H 20 Blood Pressure 141/86 H Pulse Oximetry 100 100 100 Oxygen Delivery 02/28/24 00:15 02/28/24 00:30 02/28/24 00:31 Temperature Pulse Rate 115 H 112 H 112 H Respiratory Rate 26 H 20 12 Blood Pressure 135/71 Pulse Oximetry 100 100 100 Oxygen Delivery 02/28/24 00:45 02/28/24 01:00 02/28/24 01:06 Temperature Pulse Rate 120 H 124 H 122 H Respiratory Rate 17 32 H 12 Blood Pressure 146/69 H Pulse Oximetry 100 99 Oxygen Delivery 02/28/24 01:23 02/28/24 01:59 02/28/24 02:30 Temperature Pulse Rate 105 H 107 H Respiratory Rate 19 20 Blood Pressure 146/69 H 115/62 Pulse Oximetry 99 99 99 Oxygen Delivery Room Air 02/27/24 17:03 02/28/24 05:53 02/28/24 05:54 Temperature 97.1 F L 97.1 F L 97.1 F L Pulse Rate 119 H 133 H 140 H Respiratory Rate 14 14 14 Blood Pressure 148/74 H 164/91 H 156/103 H Pulse Oximetry 100 100 100 Oxygen Delivery Exam Narrative: Weight 83.3 kg BMI 31.5 Const: Other: mildly ill-appearing, obese, appears stated age HENMT: Other: tacky mucous membranes, no oral pharyngeal erythema, fair dentition Eyes: Other: pupils are equal and reactive, no scleral icterus Neck: Other: no JVD, no gross lymphadenopathy, slightly enlarged parotid gland on the right but nontender Resp: Other: no tachypnea, equal breath sounds Cardio: Other: sinus tachycardia, 2+ bilateral radial pedal pulses GI: Other: soft, distended, normoactive bowel sounds, no overt areas of tenderness Skin: Other: normal temperature to touch, non jaundice, no pallor Neuro: Other: patient's was difficult to arouse initially and gave some confused answers, 1 she woke up completely she was alert oriented x4, she has no localizing neurologic deficits noted during the course of conversation Extrem: Other: no clubbing, no cyanosis patient has large ankles but no evidence of pitting edema Psych: Other: no acute distress, difficult to arouse but otherwise oriented, guarded, H&P: Results Labs Labs: Short CBC 02/27/24 02/28/24 Range/Units 17:44 05:39 WBC 11.1 H 14.5 H (4.5-10.0) K/mm3 Hgb 14.2 13.0 (12.0-15.0) g/dL Hct 41.7 37.7 (37.0-47.0) % Plt Count 412 H D 399 H (150-375) k/mm3 BMP 02/27/24 02/27/24 02/28/24 17:44 22:46 05:39 Sodium 137 133 L 129 L Potassium 4.2 4.2 3.8 Chloride 103 104 99 Carbon Dioxide 20 L 18 L 16 L BUN 16 13 10 Creatinine 0.40 L 0.40 L 0.40 L Glucose 198 H 111 H 262 H Calcium 9.5 9.3 8.9 Liver Function 02/27/24 Range/Units 17:44 Total Bilirubin 0.8 (0.2-1.3) mg/dL AST 23 (14-36) U/L ALT 15 (6-35) U/L Alkaline Phosphatase 74 (38-126) U/L Albumin 4.8 (3.5-5.1) g/dL Urine 02/27/24 Range/Units 20:58 Urine Color Yellow (Yellow) Urine Appearance Clear (Clear) Urine pH 6.5 (5.0-9.0) Ur Specific [place] 1.023 (1.001-1.035) Urine Protein Trace (Negative) mg/dL Urine Glucose (UA) 3+ H (Negative) mg/dL Impressions Chest X-Ray 02/27/24 19:00 (personally reviewed and interpreted agree with radiologic interpretation) IMPRESSION: No active cardiopulmonary disease EKG and telemetry personally reviewed and interpreted consistent with sinus tachycardia. Assessment and Plan Assessment and plan (1) Intractable nausea and vomiting: Code(s): R11.2 - Nausea with vomiting, unspecified Status: Acute (2) Dehydration: Code(s): E86.0 - Dehydration Status: Acute (3) Sinus tachycardia: Code(s): R00.0 - Tachycardia, unspecified Status: Acute (4) Nausea and vomiting during : Code(s): O21.9 - Vomiting of , unspecified Status: Acute (5) DKA (diabetic ketoacidoses): Qualifiers: Diabetes mellitus complication detail: without coma Diabetes mellitus type: type 1 Qualified Code(s): E10.10 - Type 1 diabetes mellitus with ketoacidosis without coma Code(s): E11.10 - Type 2 diabetes mellitus with ketoacidosis without coma Status: Acute Plan Initially the patient's labs were consistent with mild DKA a verses starvation ketosis due to intractable nausea vomiting and significant dehydration. Initially with IV fluid hydration the patient's anion gap closed and patient was euglycemic. Her serum bicarb was only minimally low. However ,after arriving to the medical floor the patient removed her insulin pump without staff being aware that she had done so. She subsequently went 4 hours or more without insulin administration. Her pump had just been re-initiated either just prior to lab for drawing her most recent BMP or just after. Due to not having insulin for several hours the patient is now in Mild DKA. Her sinus tachycardia that had been improving as increased again. Will attempt to give the patient 2 L of IV fluids and will repeat BMP and 3 hours. If patient's acidosis is not improved with insulin therapy at that time she will likely need to be transferred to the ICU for insulin drip. Patient has had the best response to will to Phenergan for her nausea. She reports that she is supposed to follow-up with gastroenterology in April for evaluation for possible gastroparesis. Will continue IV Pepcid q.12 hours The patient is currently . I informed the patient of her . Her quantitative hCG is consistent with a 1-10 weeks gestation at 105. Patient has followed with [facility] for prior pregnancies but has always been referred to maternal medicine at [facility] for delivery. Will obtain pelvic ultrasound to evaluate status. Quality VTE Prophylaxis VTE prophylaxis: pharmacologic ordered ( Lovenox 40 mg subQ daily.) Hospitalist [facility] Advance Care Plan I have confirmed that the patient's Advanced Care Plan is present, code status is documented, or surrogate decision maker is listed in patient medical record.: Yes Medication Reconciliation I have utilized all available resources to obtain, update and review the patients current medications (includes all prescriptions, OTC, herbals, cannabis, and nutritional supplements).: Yes
[2024-02-28] MEDS: LACTATED RINGERS 1,000 ML 999 ML IV CONT ×2 (06:52→07:58)
--- NOTE | 2024-02-28 07:39 | P.PNIM_ITS ---
Progress Note: A&P Assessment and Plan (1) Intractable nausea and vomiting: Code(s): R11.2 - Nausea with vomiting, unspecified Status: Acute (2) Dehydration: Code(s): E86.0 - Dehydration Status: Acute (3) DKA (diabetic ketoacidosis): Code(s): E11.10 - Type 2 diabetes mellitus with ketoacidosis without coma Status: Acute Plan DKA Patient has history of diabetes Upon arrival in the ED, patient has ketone 2+ in the urine, metabolic acidosis Patient received fluid resuscitation, Patient is on insulin pump, Monitor glucose a.c. and q.h.s. Intractable nausea vomiting Patient has history of diabetic gastroparesis chronic 1-10 weeks, possible nausea vomiting Continue supportive treatment fluid resuscitation and antiemetic medication Phenergan 25 mg IM q.4 hours p.r.n. Reglan 10 mg q.6 hours p.r.n. IV f/u drug screening Metabolic acidosis, hyponatremia Likely secondary to DKA and starvation Patient is on lactated Ringer IV 15, changed to normal saline 150ml/h Follow-up BMP SIRS Upon arrival in the ED, patient has tachycardia tachypnea, patient is afebrile, leukocytosis 40,500 Urea unremarkable, chest x-ray shows no acute cardiopulmonary issues No obvious sign infection, possible due to dehydration, stress from DKA nausea vomiting Subjective Date/time seen: 02/28/24 07:39 Interval history: I saw and examined the patient today in presents of patient's nurse. Patient still has nausea, but well controlled with antiemetic medication. Appetite is improving. Patient denies abdomen pain, chest pain shortness of breath, patient is afebrile, blood pressure stable, Exam Narrative: GENERAL: Pleasant, in no acute distress. Well-nourished. - EYES: EOMI. Anicteric. - HENT: Moist mucous membranes. - LUNGS: Clear to auscultation bilateral ly, no wheezing, rhonchi, or rales. - CARDIOVASCULAR: Regular rate and rhyth m. No murmur. No JVD. - ABDOMEN: Soft, non-tender and non-dist ended. No palpable masses. - EXTREMITIES: No edema. Peripheral puls es 2+. Non-tender. - NEUROLOGIC: No focal neurological defi cits. CN II-XII grossly intact. - PSYCHIATRIC: Awake, Alert and oriented x 3. Appropriate mood and affect. - SKIN: No rashes or lesions. Warm. - LYMPH: No cervical lymphadenopathy. Objective Data Vital Signs Vital Signs: Vital Signs - 24 hr 02/27/24 17:17 02/27/24 20:05 02/27/24 17:16 Temperature 98 F Pulse Rate 121 H 119 H Respiratory Rate 15 20 Blood Pressure 136/99 H Pulse Oximetry 99 99 99 Oxygen Delivery Room Air 02/27/24 17:18 02/27/24 17:30 02/27/24 17:45 Temperature Pulse Rate 117 H 120 H 114 H Respiratory Rate 16 24 H 15 Blood Pressure 136/99 H Pulse Oximetry 98 100 Oxygen Delivery 02/27/24 18:00 02/27/24 18:15 02/27/24 18:30 Temperature Pulse Rate 120 H 77 132 H Respiratory Rate 22 H 27 H 34 H Blood Pressure Pulse Oximetry 100 100 100 Oxygen Delivery 02/27/24 18:45 02/27/24 19:00 02/27/24 19:15 Temperature Pulse Rate 113 H 113 H 113 H Respiratory Rate 25 H 20 12 Blood Pressure Pulse Oximetry 100 100 100 Oxygen Delivery 02/27/24 19:30 02/27/24 19:45 02/27/24 20:15 Temperature Pulse Rate 118 H 118 H 126 H Respiratory Rate 26 H 17 27 H Blood Pressure Pulse Oximetry 98 100 96 Oxygen Delivery 02/27/24 20:30 02/27/24 21:29 02/27/24 21:30 Temperature Pulse Rate 114 H 113 H 127 H Respiratory Rate 15 11 L 25 H Blood Pressure 132/71 Pulse Oximetry 99 100 100 Oxygen Delivery 02/27/24 21:31 02/27/24 21:32 02/27/24 21:45 Temperature Pulse Rate 112 H 110 H 143 H Respiratory Rate 16 23 H 25 H Blood Pressure 127/54 L Pulse Oximetry 98 99 100 Oxygen Delivery 02/27/24 22:00 02/27/24 22:01 02/27/24 22:15 Temperature Pulse Rate 121 H 121 H 113 H Respiratory Rate 23 H 27 H 18 Blood Pressure 151/83 H Pulse Oximetry 100 100 100 Oxygen Delivery 02/27/24 22:16 02/27/24 22:30 02/27/24 22:45 Temperature Pulse Rate 111 H 117 H 113 H Respiratory Rate 18 22 H 11 L Blood Pressure 120/54 L Pulse Oximetry 100 100 100 Oxygen Delivery 02/27/24 22:48 02/27/24 23:00 02/27/24 23:01 Temperature Pulse Rate 110 H 118 H 116 H Respiratory Rate 20 20 25 H Blood Pressure 147/70 H 138/97 H Pulse Oximetry 100 99 100 Oxygen Delivery 02/27/24 23:15 02/27/24 23:30 02/27/24 23:31 Temperature Pulse Rate 130 H 119 H 121 H Respiratory Rate 37 H 32 H 23 H Blood Pressure 146/93 H Pulse Oximetry 99 100 100 Oxygen Delivery 02/27/24 23:45 02/28/24 00:00 02/28/24 00:01 Temperature Pulse Rate 116 H 112 H 113 H Respiratory Rate 16 27 H 20 Blood Pressure 141/86 H Pulse Oximetry 100 100 100 Oxygen Delivery 02/28/24 00:15 02/28/24 00:30 02/28/24 00:31 Temperature Pulse Rate 115 H 112 H 112 H Respiratory Rate 26 H 20 12 Blood Pressure 135/71 Pulse Oximetry 100 100 100 Oxygen Delivery 02/28/24 00:45 02/28/24 01:00 02/28/24 01:06 Temperature Pulse Rate 120 H 124 H 122 H Respiratory Rate 17 32 H 12 Blood Pressure 146/69 H Pulse Oximetry 100 99 Oxygen Delivery 02/28/24 01:23 02/28/24 01:59 02/28/24 02:30 Temperature Pulse Rate 105 H 107 H Respiratory Rate 19 20 Blood Pressure 146/69 H 115/62 Pulse Oximetry 99 99 99 Oxygen Delivery Room Air 02/27/24 17:03 02/28/24 05:53 02/28/24 05:54 Temperature 97.1 F L 97.1 F L 97.1 F L Pulse Rate 119 H 133 H 140 H Respiratory Rate 14 14 14 Blood Pressure 148/74 H 164/91 H 156/103 H Pulse Oximetry 100 100 100 Oxygen Delivery 02/28/24 04:00 Temperature Pulse Rate 121 H Respiratory Rate Blood Pressure Pulse Oximetry Oxygen Delivery Intake/Output Intake/Output: Intake & Output 02/25/24 02/26/24 02/27/24 02/28/24 23:59 23:59 23:59 23:59 Intake Total 3000 Balance 3000 Meds/Results Medications: Active Medications Generic Name Dose Route Start Last Admin Trade Name Freq PRN Reason Stop Dose Admin Dextrose 12.5 gm 02/28/24 03:57 Dextrose 50% 25 Gm/50 Ml Syringe IV PUSH PRN PRN Hypoglycemia Protocol Enoxaparin Sodium 40 mg 02/28/24 09:00 Enoxaparin 40 Mg/0.4 Ml Syringe SUB-Q DAILY BOB Famotidine 20 mg 02/28/24 09:00 Famotidine 20 Mg/2 Ml Vial IV PUSH Q12HR BOB Glucagon 1 mg 02/28/24 03:57 Glucagon For Inj 1 Mg Vial IM PRN PRN Hypoglycemia Protocol Glucose 15 gm 02/28/24 03:57 Glucose Oral Gel 15 Gm Of Glucse In 37.5 Gm Tube PO PRN PRN Hypoglycemia Protocol Dextrose 1,000 mls @ 100 mls/hr 02/28/24 03:57 Dextrose 5% 1,000 Ml IVPB PRN PRN Hypoglycemia Protocol Lactated Ringer's 1,000 mls @ 999 mls/hr 02/28/24 06:44 02/28/24 06:52 Lr - Lactated Ringers Iv IV CONT 02/28/24 07:44 999 mls/hr .Q1H1M STA Administration Lactated Ringer's 1,000 mls @ 999 mls/hr 02/28/24 06:44 Lr - Lactated Ringers Iv IV CONT 02/28/24 07:44 .Q1H1M STA Lactated Ringer's 1,000 mls @ 15 mls/hr 02/28/24 06:50 Lr - Lactated Ringers Iv IV CONT .Q24H BOB Promethazine HCl 25 mg 02/28/24 01:22 02/28/24 04:16 Promethazine Hcl 25 Mg/Ml Ampul IM 25 mg Q4H PRN Administration Nausea And Vomiting Radiology Results: ITS Impressions Chest X-Ray 02/27/24 19:00 IMPRESSION: No active cardiopulmonary disease Labs Labs: Laboratory Results - last 24 hr 02/27/24 02/27/24 02/27/24 17:26 17:44 17:44 WBC 11.1 H RBC 4.73 Hgb 14.2 Hct 41.7 MCV 88.2 MCH 30.0 MCHC 34.1 RDW 13.4 Plt Count 412 H D MPV 8.9 Immature Gran % (Auto) 0.4 Neut % (Auto) 88.4 H Lymph % (Auto) 7.5 L [place] % (Auto) 3.4 Eos % (Auto) 0.0 Baso % (Auto) 0.3 Lymph # (Auto) 0.83 L [place] # (Auto) 0.4 Eos # (Auto) 0.0 Baso # (Auto) 0.0 Abs Immat Gran (auto) 0.04 H Absolute Neuts (auto) 9.8 H Absolute Nucleated RBC 0.000 Nucleated RBC % 0.0 Sodium 137 Potassium 4.2 Chloride 103 Carbon Dioxide 20 L Anion Gap 14 H BUN 16 Creatinine 0.40 L Estim Creat Clear Calc 179 Estimated GFR > 60 Glucose 198 H POC Capillary Glucose 199 H Lactic Acid Calcium 9.5 Total Bilirubin 0.8 AST 23 ALT 15 Alkaline Phosphatase 74 Total Protein 8.0 Albumin 4.8 Lipase 28 Beta-Hydroxybutyrate/Acetoacetate 1.39 H Cancelled TSH (Reflex) 2.650 Serum HCG, Qual Positive A Beta HCG, Quant Urine Color Urine Appearance Urine pH Ur Specific [place] Urine Protein Urine Glucose (UA) Urine Ketones Ur Blood (Man) Urine Nitrate Urine Bilirubin Urine Urobilinogen Leukocyte Esterase Rfl Urine RBC Urine WBC Ur Squamous Epith Cells Urine Bacteria Urine Casts 02/27/24 02/27/24 02/27/24 17:49 20:58 22:46 WBC RBC Hgb Hct MCV MCH MCHC RDW Plt Count MPV Immature Gran % (Auto) Neut % (Auto) Lymph % (Auto) [place] % (Auto) Eos % (Auto) Baso % (Auto) Lymph # (Auto) [place] # (Auto) Eos # (Auto) Baso # (Auto) Abs Immat Gran (auto) Absolute Neuts (auto) Absolute Nucleated RBC Nucleated RBC % Sodium 133 L Potassium 4.2 Chloride 104 Carbon Dioxide 18 L Anion Gap 11 BUN 13 Creatinine 0.40 L Estim Creat Clear Calc 179 Estimated GFR > 60 Glucose 111 H POC Capillary Glucose Lactic Acid 1.7 Calcium 9.3 Total Bilirubin AST ALT Alkaline Phosphatase Total Protein Albumin Lipase Beta-Hydroxybutyrate/Acetoacetate TSH (Reflex) Serum HCG, Qual Beta HCG, Quant Urine Color Yellow Urine Appearance Clear Urine pH 6.5 Ur Specific [place] 1.023 Urine Protein Trace Urine Glucose (UA) 3+ H Urine Ketones 3+ H Ur Blood (Man) Negative Urine Nitrate Negative Urine Bilirubin Negative Urine Urobilinogen 0.2 Leukocyte Esterase Rfl Negative Urine RBC 0-2 Urine WBC 0-5 Ur Squamous Epith Cells Occasional Urine Bacteria None seen Urine Casts 0-2 02/28/24 02/28/24 04:00 05:39 WBC 14.5 H RBC 4.27 Hgb 13.0 Hct 37.7 MCV 88.3 MCH 30.4 MCHC 34.5 RDW 13.2 Plt Count 399 H MPV 9.3 Immature Gran % (Auto) Neut % (Auto) Lymph % (Auto) [place] % (Auto) Eos % (Auto) Baso % (Auto) Lymph # (Auto) [place] # (Auto) Eos # (Auto) Baso # (Auto) Abs Immat Gran (auto) Absolute Neuts (auto) Absolute Nucleated RBC Nucleated RBC % Sodium 129 L Potassium 3.8 Chloride 99 Carbon Dioxide 16 L Anion Gap 14 H BUN 10 Creatinine 0.40 L Estim Creat Clear Calc 179 Estimated GFR > 60 Glucose 262 H POC Capillary Glucose 163 H Lactic Acid Calcium 8.9 Total Bilirubin AST ALT Alkaline Phosphatase Total Protein Albumin Lipase Beta-Hydroxybutyrate/Acetoacetate TSH (Reflex) Serum HCG, Qual Beta HCG, Quant 105.06 Urine Color Urine Appearance Urine pH Ur Specific [place] Urine Protein Urine Glucose (UA) Urine Ketones Ur Blood (Man) Urine Nitrate Urine Bilirubin Urine Urobilinogen Leukocyte Esterase Rfl Urine RBC Urine WBC Ur Squamous Epith Cells Urine Bacteria Urine Casts
[2024-02-28 08:33] LABS: Glucose Point of Care 173 mg/dl (65-105)
[2024-02-28] MEDS: SODIUM CHLORIDE 0.9% IV 1,000 ML 150 ML IV CONT ×3 (09:09→23:30)
[2024-02-28 10:00] LABS: Amphetamine Screen Urine Negative (Negative); Barbiturate Screen Urine Negative (Negative); Benzodiazepines Screen Urine Negative (Negative); Cannabinoid Screen Urine Negative (Negative); Cocaine Screen Urine Negative (Negative); Methadone Screen Urine Negative (Negative); Opiate Screen Urine Negative (Negative); Phencyclidine Screen Urine Negative (Negative)
[2024-02-28 10:28] LABS: Anion Gap 8 mmol/L (4-12); Blood Urea Nitrogen 8 mg/dL (7-17); Calcium 8.9 mg/dL (8.4-10.2); Carbon Dioxide 23 mmol/L (22-30); Chloride 102 mmol/L (98-107); Estimated CRCL calculation 147 ml/min; Estimated Glomerular Filt Rate > 60; Glucose 124 mg/dL (65-110); Potassium 3.3 mmol/L (3.4-5.0); Sodium 133 mmol/L (137-145)
[2024-02-28 11:46] LABS: Glucose Point of Care 102 mg/dl (65-105)
[2024-02-28 16:54] LABS: Glucose Point of Care 77 mg/dl (65-105)
[2024-02-28 21:11] LABS: Glucose Point of Care 110 mg/dl (65-105)
[2024-02-29] VITALS: PULSE 99
[2024-02-29 00:15] LABS: Glucose Point of Care 94 mg/dl (65-105)
[2024-02-29 04:01] VITALS: PULSE 92
[2024-02-29 06:00] VITALS: BP 125/67; PULSE 88; RESP 12; TEMP 36.4; O2SAT 99
[2024-02-29] MEDS: SODIUM CHLORIDE 0.9% IV 1,000 ML 150 ML IV CONT (06:03)
[2024-02-29 06:11] LABS: Glucose Point of Care 85 mg/dl (65-105)
[2024-02-29 07:57] VITALS: RESP 14; O2SAT 99
[2024-02-29 08:04] VITALS: PULSE 109
[2024-02-29 08:11] LABS: Glucose Point of Care 92 mg/dl (65-105)
[2024-02-29] MEDS: FAMOTIDINE 20 MG/2 ML VIAL IV PUSH (09:01)
[2024-02-29 10:24] LABS: Basophils Percent Auto 0.2 % (0.2-1.2); Hematocrit 36.5 % (37.0-47.0); Hemoglobin 12.8 g/dL (12.0-15.0); Immature Granulocyte Absolute 0.05 K/mm3 (0.00-0.031); Immature Granulocyte Percent A 0.5 % (0-0.5); Lymphocytes Absolute Auto 0.89 K/mm3 (0.9-3.2); Lymphocytes Percent Auto 9.7 % (18.3-44.2); Mean Corpuscular HGB Conc 35.1 g/dl (32-36); Mean Corpuscular Hemoglobin 30.8 pg (26-34); Mean Corpuscular Volume 87.7 fl (80-100); Mean Platelet Volume 8.8 fl (7.4-10.4); Monocytes Absolute Auto 0.5 K/mm3 (0.1-0.6); Neutrophils Absolute Auto 7.8 K/mm3 (1.3-6.7); Neutrophils Percent Auto 84.6 % (45.5-73.1); Platelet Count Result 347 k/mm3 (150-375); Red Blood Count 4.16 M/mm3 (4.2-5.4); White Blood Count 9.2 K/mm3 (4.5-10.0)
[2024-02-29 10:42] LABS: Alanine Aminotransferase 13 U/L (6-35); Albumin Level 3.9 g/dL (3.5-5.1); Alkaline Phosphatase 63 U/L (38-126); Anion Gap 12 mmol/L (4-12); Aspartate Amino Transferase 19 U/L (14-36); Blood Urea Nitrogen 6 mg/dL (7-17); Calcium 8.4 mg/dL (8.4-10.2); Carbon Dioxide 19 mmol/L (22-30); Chloride 102 mmol/L (98-107); Estimated CRCL calculation 179 ml/min; Estimated Glomerular Filt Rate > 60; Glucose 114 mg/dL (65-110); Magnesium 1.5 mg/dL (1.6-2.3); Potassium 3.3 mmol/L (3.4-5.0); Sodium 133 mmol/L (137-145)
[2024-02-29 11:46] LABS: Glucose Point of Care 111 mg/dl (65-105)
--- NOTE | 2024-02-29 11:49 | P.DS_ITS ---
DS: Admitting Diagnosis Discharge Date 02/29/24 Admitting Diagnosis nausea vomiting DS: Discharge Diagnosis Discharge Diagnosis (1) Intractable nausea and vomiting: Code(s): R11.2 - Nausea with vomiting, unspecified Status: Acute (2) DKA (diabetic ketoacidosis): Code(s): E11.10 - Type 2 diabetes mellitus with ketoacidosis without coma Status: Acute DS: Summary Hospital Course Hospital Course: 28-year-old female with a past medical history of type 1 diabetes mellitus with multiple admissions for DKA, intractable nausea vomiting, dehydration and chronic abdominal pain who presented to the ER with 24 hours of intractable nausea vomiting. the patient reports that she was so nauseated that she was having multiple episodes of dry heaves. She has not had any fevers or chills. She reports intermittent frequent episodes of diarrhea with 1 episode of loose stools yesterday. On arrival to the ER she had heart rates in the 140s. She received 3 L of LR in her heart rate came down into the 110s. She initially had a mild anion gap and a minimally elevated beta hydroxy butyrate but her anion gap closed after receiving fluids. She was euglycemic. She was still having intractable nausea vomiting despite receiving Pepcid,Reglan, Zofran and and Tigan. She denies any hematemesis, coffee-ground emesis or hematochezia. She reports that she still feels extremely nauseated and has no desire to eat or drink. the patient was initially refusing to give staff a urine specimen. Subsequently a serum HCT was ordered but was not obtained until after the pat ient arrived to the medical floor. The patient's hCG was positive. She reports that she thinks the start of her last menstrual cycle was the 1st week in January But she is not sure. She had a urine test performed during her last hospitalization on the that was negative. on arrival to the medical floor the patient decided of her own accord to remove her insulin pump. She was not instructed to remove her insulin pump. The patient evidently had her insulin pump off for approximately 4 hours prior to time of my evaluation. I requested nursing staff have the patient place insulin pump back on. The patient has an insulin pump that communicates with her continuous glucose monitor to achieve euglycemia. Lab had drawn the patient's most recent BMP just prior to her placing her insulin pump back on. Her repeat BMP demonstrated slightly elevated anion gap and lower serum bicarb. This is likely due to the patient not having insulin for several hours after she removed her insulin pump. It was difficult to obtain history from the patient. Patient was admitted and continued on IVF, insulin pump was placed back on. anion gap closed and Bicarb resolved. Patient still nauseous however she insisted on being discharged of she will leave AMA. Patient is tolerated full liquid diet however. She was discharged on Doxylamine/Pyridoxine. Continue follow up with PCP in 3-5 days and [facility]. Patient stated she is and HCG was 105 and US abd/pelvis negative. Patient counseled to follow up with PCP and [facility]. DKA Patient has history of diabetes s/p IVF Anion gap resolved and wnl bicarb above 15. continue lnsulin pump f/u with PCP in 3-5 days Intractable nausea vomiting Patient has history of diabetic gastroparesis, 1-10 weeks, possible nausea vomiting s/p Reglan and promethazine Discharged on Doxylamine-Pyridoxine PRN promethazine 12.5mg PRN x 3 tabs f/u with PCP for further care Metabolic acidosis, hyponatremia, resolved Likely secondary to DKA and starvation s/p IVF resolved DM1 continue insulin pump F/u with PCP in 3-5 days F/u with angiography nurse Time Spent with Patient Time attestation: Total time spent providing and/or coordinating discharge services: DS: Data Data Completed and Pending Labs on day of discharge: Labs from last 24 hours 02/29/24 02/29/24 02/29/24 11:30 10:17 08:08 WBC 9.2 RBC 4.16 L Hgb 12.8 Hct 36.5 L MCV 87.7 MCH 30.8 MCHC 35.1 RDW 13.0 Plt Count 347 MPV 8.8 Immature Gran % (Auto) 0.5 Neut % (Auto) 84.6 H Lymph % (Auto) 9.7 L [place] % (Auto) 5.0 Eos % (Auto) 0.0 Baso % (Auto) 0.2 Lymph # (Auto) 0.89 L [place] # (Auto) 0.5 Eos # (Auto) 0.0 Baso # (Auto) 0.0 Abs Immat Gran (auto) 0.05 H Absolute Neuts (auto) 7.8 H Absolute Nucleated RBC 0.000 Nucleated RBC % 0.0 Sodium 133 L Potassium 3.3 L Chloride 102 Carbon Dioxide 19 L Anion Gap 12 BUN 6 L Creatinine 0.40 L Estim Creat Clear Calc 179 Estimated GFR > 60 Glucose 114 H POC Capillary Glucose 111 H 92 Calcium 8.4 Magnesium 1.5 L Total Bilirubin 1.0 AST 19 ALT 13 Alkaline Phosphatase 63 Total Protein 7.0 Albumin 3.9 02/29/24 02/29/24 02/28/24 04:50 00:11 20:07 WBC RBC Hgb Hct MCV MCH MCHC RDW Plt Count MPV Immature Gran % (Auto) Neut % (Auto) Lymph % (Auto) [place] % (Auto) Eos % (Auto) Baso % (Auto) Lymph # (Auto) [place] # (Auto) Eos # (Auto) Baso # (Auto) Abs Immat Gran (auto) Absolute Neuts (auto) Absolute Nucleated RBC Nucleated RBC % Sodium Potassium Chloride Carbon Dioxide Anion Gap BUN Creatinine Estim Creat Clear Calc Estimated GFR Glucose POC Capillary Glucose 85 94 110 H Calcium Magnesium Total Bilirubin AST ALT Alkaline Phosphatase Total Protein Albumin 02/28/24 16:51 WBC RBC Hgb Hct MCV MCH MCHC RDW Plt Count MPV Immature Gran % (Auto) Neut % (Auto) Lymph % (Auto) [place] % (Auto) Eos % (Auto) Baso % (Auto) Lymph # (Auto) [place] # (Auto) Eos # (Auto) Baso # (Auto) Abs Immat Gran (auto) Absolute Neuts (auto) Absolute Nucleated RBC Nucleated RBC % Sodium Potassium Chloride Carbon Dioxide Anion Gap BUN Creatinine Estim Creat Clear Calc Estimated GFR Glucose POC Capillary Glucose 77 Calcium Magnesium Total Bilirubin AST ALT Alkaline Phosphatase Total Protein Albumin Discharge Plan Discharge Attending physician on discharge: Adama Dash Discharging Clinician: Adama Dash Anticipated Discharge Date/Time: 02/29/24 11:43 Patient Disposition: Home, Self-Care Activity: as tolerated Diet: as tolerated Patient Instructions: Antibiotic Form, Pain Management (DC) Stand Alone Forms: General Discharge Information Follow-up/Referrals: Harley Jauregui MD [Primary Care Provider] - (F/u with PCP in 3-5 days ) Discharge Medications: New doxylamine-pyridoxine (vit B6) 20-20 mg tablet,IR,delayed rel,biphasic 1 tablet PO HS Qty: 10 0RF Continued insulin lispro 100 unit/mL solution See Rx Instructions .ROUTE .COMPLEX Rx Instructions: insulin pump; basal rate of 8 Date of admission: 02/28/24 08:23 Primary Care Provider: Harley Jauregui Admitting Provider: Winter Pickering Attending physician on admission: Winter Pickering Condition: Stable
== END 2024-02-29 12:55 | disposition home or self-care (01) | DRG 566 ==
LOC: ANHED 02-28 01:00 → ANH2MED 02-28 01:43
PROVIDERS: Emergency Medicine; Hospitalist; Admitting Provider Internal Medicine; Emergency Provider Physician Assistant; PCP Emergency Medicine; Visit Provider Internal Medicine
DX: O24.011 Pre-existing type 1 diabetes mellitus, in pregnancy, first trimester (principal); E10.10 Type 1 diabetes mellitus with ketoacidosis without coma; O21.1 Hyperemesis gravidarum with metabolic disturbance; Z79.4 Long term (current) use of insulin; E86.0 Dehydration; Z96.41 Presence of insulin pump (external) (internal); Z3A.00 Weeks of gestation of pregnancy not specified; Z28.21 Immunization not carried out because of patient refusal
CPT/HCPCS: 36415; 71045; 76801; 76817; 80048; 80053; 80307; 81001; 82010; 82948; 83605; 83690; 83735; 84443; 84702; 84703; 85025; 85027; 93005; 96361; 96372; 96374; 96375; 99285; G0378; G0379; J1200; J2405; J2550; J2765; J3250; J7030; J7120

== ENCOUNTER 2024-03-21 21:55 | Emergency (ER) | payer BC, SELFPAY ==
[2024-03-21 22:49] LABS: Glucose Point of Care 179 mg/dl (65-105)
[2024-03-21 23:11] VITALS: BP 147/83; PULSE 123; RESP 10; TEMP 36.6; O2SAT 100
[2024-03-21 23:15] VITALS: BP 147/83; PULSE 123; RESP 12; TEMP 36.6; O2SAT 100
[2024-03-21 23:32] LABS: Basophils Percent Auto 0.2 % (0.2-1.2); Hematocrit 38.8 % (37.0-47.0); Hemoglobin 13.6 g/dL (12.0-15.0); Immature Granulocyte Absolute 0.07 K/mm3 (0.00-0.031); Immature Granulocyte Percent A 0.6 % (0-0.5); Lymphocytes Absolute Auto 1.62 K/mm3 (0.9-3.2); Lymphocytes Percent Auto 13.4 % (18.3-44.2); Mean Corpuscular HGB Conc 35.1 g/dl (32-36); Mean Corpuscular Hemoglobin 31.1 pg (26-34); Mean Corpuscular Volume 88.8 fl (80-100); Mean Platelet Volume 8.9 fl (7.4-10.4); Monocytes Absolute Auto 0.8 K/mm3 (0.1-0.6); Monocytes Percent Auto 6.3 % (2.6-8.5); Neutrophils Absolute Auto 9.7 K/mm3 (1.3-6.7); Neutrophils Percent Auto 79.5 % (45.5-73.1); Platelet Count Result 345 k/mm3 (150-375); Red Blood Count 4.37 M/mm3 (4.2-5.4); Red Cell Distribution Width 13.5 % (11.5-14.5); White Blood Count 12.1 K/mm3 (4.5-10.0)
--- NOTE | 2024-03-21 23:40 | ED_ITS ---
HPI - Nausea/Vomiting/Diarrhea General Chief complaint: Nausea/Vomiting/Diarrhea Stated complaint: N/V Time Seen by Provider: 03/21/24 22:44 History of Present Illness HPI Narrative: 28-year-old female with a history of type 1 diabetes presents to the emergency department for nausea and vomiting x1 day. Patient reports a history of DKA and is concerned she is in DKA. She denies chest pain or shortness of breath, cough or congestion, fever, abdominal pain, diarrhea , dysuria. She started her period today. She has a Dexcom to her left upper extremity and insulin pump inserted in the right lower quadrant of her abdomen. Related Data Home Medications Medication Instructions Recorded Confirmed insulin lispro 100 unit/mL See Rx Instructions .Route .COMPLEX 02/28/24 02/28/24 subcutaneous solution Allergies Allergy/AdvReac Type Severity Reaction Status Date / Time No Known Allergies Allergy Unknown Verified 03/21/24 21:57 Review of Systems Review of Systems: All systems reviewed & are unremarkable except as noted in HPI and below PMFSH Past Medical History Medical History Abdominal pain Chronic abdominal pain Anxiety Finger fracture Gastric ulcer On recent EGD at [facility] Type 1 diabetes mellitus Surgical History Surgical History Hx of section 2017 Hx of dilation and curettage 2019 following missed ab Hx of tonsillectomy Family History Family History Mother Family history of anemia Father Unknown family medical history Other Family history of arthritis Family history of hepatitis Family history of liver disease Social History Social History Social History: She lives at home with her 7-year-old daughter and her 1-year-old. She denies any alcohol tobacco or illicit substance use. she is engaged to be . Code status: Full code Surrogate decision maker: Karen Fuchs (mother) Smoking status: Never smoker Alcohol intake: never Substance use: never Substance use type: does not use Do You Feel Safe in your Home?: Yes Lack of Transportation: No Lack of Food: Never True Current Housing: I Have Housing Concerned About Future Housing: No Difficulty Paying Gas/Electric Bills: No Difficulty Paying for Meds: No Currently Unemployed: No Education: Bachelor's Degree Difficulty w/ Childcare or Family Care: No Spiritual care concerns: No Agree to blood products: Yes Exam Narrative: GENERAL: Ill-appearing, well-nourished, and in no acute distress. HEAD: Normocephalic, atraumatic. EYES: PERRLA and EOMI. ENT: Nares clear, no rhinorrhea or epistaxis. Mucous membranes moist. NECK: Supple. CHEST: Clear to auscultation. No respiratory distress. HEART: Regular rate and rhythm. No murmur heard. Normal peripheral pulses. ABDOMEN: Soft, nontender, nondistended, normal active bowel sounds. no rebound, guarding or rigidity. No CVA tenderness. insulin pump in the right lower quadrant EXTREMITIES: Normal range of motion. No edema. Dexcom in the left upper extre mity SKIN: Warm, dry, no rash. NEURO: No focal deficits. Alert and oriented x3 Course Vital Signs Vital signs: Vital Signs Temperature 97.9 F 03/21/24 23:11 Pulse Rate 123 H 03/21/24 23:11 Respiratory Rate 10 L 03/21/24 23:11 Blood Pressure 147/83 H 03/21/24 23:11 Pulse Oximetry 100 03/21/24 23:11 Oxygen Delivery Room Air 03/21/24 23:11 Temperature 97.9 F 03/21/24 23:15 Pulse Rate 104 H 03/22/24 01:09 Respiratory Rate 15 03/22/24 01:09 Blood Pressure 126/84 03/22/24 01:09 Pulse Oximetry 100 03/22/24 01:09 Oxygen Delivery Room Air 03/21/24 23:11 MDM - Nausea/Vomiting/Diarrhea MDM Narrative Medical decision making narrative: 28-year-old female with history of type 1 diabetes presents to the emergency department for nausea vomiting. Vitals are significant for tachycardia of 123. Patient is ill-appearing. Mucous membranes are moist. She has no complaints other than nausea vomiting. Abdomen is soft and nontender. CBC shows leukocytosis of 12.1, no anemia. Chemistries are unremarkable. Normal bicarb, no anion gap acidosis concerning for DKA. Beta hydroxybutyrate is mildly elevated at 1.21, feel this is most consistent with dehydration as opposed to DKA again given no acidosis and no elevated anion gap on chemistries. Her glucose is 163. Creatinine is stable at 0.4 and normal BUN of 7. LFTs and lipase are unremarkable. is negative. Lactic is normal at 1.2. Workup discussed with the patient. Her heart rate has improved. She has received 2 L of fluids, Zofran, Reglan and Haldol. She is tolerating p.o. intake. feel she is safe to be discharged home. Will provide Zofran ODT and encouraged her to follow-up with her PCP. ED return precautions provided. Discharged in stable condition. Lab Data 03/21/24 23:27 03/21/24 23:53 Labs: Lab Results 03/21/24 03/21/24 03/21/24 Range/Units 22:47 23:27 23:53 WBC 12.1 H (4.5-10.0) K/mm3 RBC 4.37 (4.2-5.4) M/mm3 Hgb 13.6 (12.0-15.0) g/dL Hct 38.8 (37.0-47.0) % MCV 88.8 (80-100) fl MCH 31.1 (26-34) pg MCHC 35.1 (32-36) g/dl RDW 13.5 (11.5-14.5) % Plt Count 345 (150-375) k/mm3 MPV 8.9 (7.4-10.4) fl Immature Gran % (Auto) 0.6 H (0-0.5) % Neut % (Auto) 79.5 H (45.5-73.1) % Lymph % (Auto) 13.4 L (18.3-44.2) % [place] % (Auto) 6.3 (2.6-8.5) % Eos % (Auto) 0.0 (0-4.4) % Baso % (Auto) 0.2 (0.2-1.2) % Lymph # (Auto) 1.62 (0.9-3.2) K/mm3 [place] # (Auto) 0.8 H (0.1-0.6) K/mm3 Eos # (Auto) 0.0 (0-0.3) K/mm3 Baso # (Auto) 0.0 (0.0-0.1) K/mm3 Abs Immat Gran (auto) 0.07 H (0.00-0.031) K/mm3 Absolute Neuts (auto) 9.7 H (1.3-6.7) K/mm3 Absolute Nucleated RBC 0.000 (0.0-0.012) K/mm3 Nucleated RBC % 0.0 (0.0-0.2) % Sodium 133 L (137-145) mmol/L Potassium 3.5 (3.4-5.0) mmol/L Chloride 101 (98-107) mmol/L Carbon Dioxide 24 (22-30) mmol/L Anion Gap 8 (4-12) mmol/L BUN 7 (7-17) mg/dL Creatinine 0.40 L (0.7-1.0) mg/dL Estim Creat Clear Calc 162 ml/min Estimated GFR > 60 (59 - ) Glucose 163 H (65-110) mg/dL POC Capillary Glucose 179 H (65-105) mg/dl Lactic Acid 1.2 (0.7-2.0) mmol/L Calcium 9.2 (8.4-10.2) mg/dL Magnesium 1.6 (1.6-2.3) mg/dL Total Bilirubin 0.7 (0.2-1.3) mg/dL AST 19 (14-36) U/L ALT 13 (6-35) U/L Alkaline Phosphatase 59 (38-126) U/L Total Protein 7.0 (6.3-8.2) g/dL Albumin 4.1 (3.5-5.1) g/dL Lipase 24 (23-300) U/L Beta-Hydroxybutyrate/Acetoacetate 1.21 H (0.02-0.27) mmol/L Urine Color (Yellow) Urine Appearance (Clear) Urine pH (5.0-9.0) Ur Specific [place] (1.001-1.035) Urine Protein (Negative) mg/dL Urine Glucose (UA) (Negative) mg/dL Urine Ketones (Negative) mg/dL Ur Blood (Man) (Negative) Urine Nitrate (Negative) Urine Bilirubin (Negative) Urine Urobilinogen (<2.0) mg/dL Leukocyte Esterase Rfl (Negative) JEWEL/UL Urine RBC (0-2) /hpf Urine WBC (0-3) /hpf Ur Squamous Epith Cells (Few) /hpf Urine Bacteria /hpf Urine Casts POC Urine HCG, Qual (Negative) Urine Opiates Screen (Negative) Urine Methadone Screen (Negative) Ur Barbiturates Screen (Negative) Ur Phencyclidine Scrn (Negative) Ur Amphetamine Screen (Negative) U Benzodiazepines Scrn (Negative) Urine Cocaine Screen (Negative) U Cannabinoids Screen (Negative) Influenza A (RT-PCR) Negative (Negative) Influenza B (RT-PCR) Negative (Negative) RSV (RT-PCR) Negative (Negative) SARS-CoV-2 RNA (RT-PCR) Negative (Negative) 03/22/24 03/22/24 Range/Units 01:24 01:26 WBC (4.5-10.0) K/mm3 RBC (4.2-5.4) M/mm3 Hgb (12.0-15.0) g/dL Hct (37.0-47.0) % MCV (80-100) fl MCH (26-34) pg MCHC (32-36) g/dl RDW (11.5-14.5) % Plt Count (150-375) k/mm3 MPV (7.4-10.4) fl Immature Gran % (Auto) (0-0.5) % Neut % (Auto) (45.5-73.1) % Lymph % (Auto) (18.3-44.2) % [place] % (Auto) (2.6-8.5) % Eos % (Auto) (0-4.4) % Baso % (Auto) (0.2-1.2) % Lymph # (Auto) (0.9-3.2) K/mm3 [place] # (Auto) (0.1-0.6) K/mm3 Eos # (Auto) (0-0.3) K/mm3 Baso # (Auto) (0.0-0.1) K/mm3 Abs Immat Gran (auto) (0.00-0.031) K/mm3 Absolute Neuts (auto) (1.3-6.7) K/mm3 Absolute Nucleated RBC (0.0-0.012) K/mm3 Nucleated RBC % (0.0-0.2) % Sodium (137-145) mmol/L Potassium (3.4-5.0) mmol/L Chloride (98-107) mmol/L Carbon Dioxide (22-30) mmol/L Anion Gap (4-12) mmol/L BUN (7-17) mg/dL Creatinine (0.7-1.0) mg/dL Estim Creat Clear Calc ml/min Estimated GFR (59 - ) Glucose (65-110) mg/dL POC Capillary Glucose (65-105) mg/dl Lactic Acid (0.7-2.0) mmol/L Calcium (8.4-10.2) mg/dL Magnesium (1.6-2.3) mg/dL Total Bilirubin (0.2-1.3) mg/dL AST (14-36) U/L ALT (6-35) U/L Alkaline Phosphatase (38-126) U/L Total Protein (6.3-8.2) g/dL Albumin (3.5-5.1) g/dL Lipase (23-300) U/L Beta-Hydroxybutyrate/Acetoacetate (0.02-0.27) mmol/L Urine Color Red H (Yellow) Urine Appearance Turbid H (Clear) Urine pH 6.5 (5.0-9.0) Ur Specific [place] 1.026 (1.001-1.035) Urine Protein 1+ H (Negative) mg/dL Urine Glucose (UA) 3+ H (Negative) mg/dL Urine Ketones 4+ H (Negative) mg/dL Ur Blood (Man) 3+ H (Negative) Urine Nitrate Negative (Negative) Urine Bilirubin 1+ H (Negative) Urine Urobilinogen 1.0 (<2.0) mg/dL Leukocyte Esterase Rfl 1+ H (Negative) JEWEL/UL Urine RBC >100 H (0-2) /hpf Urine WBC 6-10 H (0-3) /hpf Ur Squamous Epith Cells None seen (Few) /hpf Urine Bacteria None seen /hpf Urine Casts 0-2 POC Urine HCG, Qual Negative (Negative) Urine Opiates Screen Negative (Negative) Urine Methadone Screen Negative (Negative) Ur Barbiturates Screen Negative (Negative) Ur Phencyclidine Scrn Negative (Negative) Ur Amphetamine Screen Negative (Negative) U Benzodiazepines Scrn Negative (Negative) Urine Cocaine Screen Negative (Negative) U Cannabinoids Screen Negative (Negative) Influenza A (RT-PCR) (Negative) Influenza B (RT-PCR) (Negative) RSV (RT-PCR) (Negative) SARS-CoV-2 RNA (RT-PCR) (Negative) Discharge Plan Discharge Clinical Impression: Dehydration Nausea & vomiting Qualifiers: Vomiting type: unspecified Qualified Code(s): R11.2 - Nausea with vomiting, unspecified Patient Disposition: Home, Self-Care Condition: Stable Instructions: Antibiotic Form, Dehydration (ED), Acute Nausea and Vomiting (ED) Additional Instructions: Drink plenty of fluids including water, Gatorade and Pedialyte. Eat a clear liquid diet until your vomiting has improved. Follow-up with your primary care provider. Return to the emergency department if you develop a fever, abdominal pain, you cannot tolerate food or fluids, or other concerning symptoms. Prescriptions: New ondansetron 4 mg tablet,disintegrating 4 mg PO Q8H Qty: 14 0RF No Action insulin lispro 100 unit/mL solution See Rx Instructions .ROUTE .COMPLEX Rx Instructions: insulin pump; basal rate of 8 doxylamine-pyridoxine (vit B6) 20-20 mg tablet,IR,delayed rel,biphasic 1 tablet PO HS Qty: 10 0RF promethazine 12.5 mg tablet 12.5 mg PO TID PRN (Reason: nausea and vomiting) Qty: 4 0RF Follow-up/Referrals: Harley Jauregui MD [Primary Care Provider] -
--- NOTE | 2024-03-21 23:41 | ECG_ITS ---
Test Date: 2024-03-22 00:17:19 Measurements Intervals [place] Rate: 104 P: 67 ME: 127 QRS: 96 QRSD: 84 T: 11 QT: 312 QTc: 412 Interpretive Statements SINUS TACHYCARDIA RIGHT AXIS DEVIATION POSSIBLE LEFT ATRIAL ENLARGEMENT MINIMAL Q WAVES- INFERIOR LEADS BORDERLINE ST-T WAVE ABNORMALITY- INFERIOR LEADS BORDERLINE ECG Compared to ECG 02/27/2024 18:35:24 HEART RATE HAS DECREASED Electronically Signed On 03-22-2024 09:19:12 CAN DOFFER by Amadeo Silva D.O.
[2024-03-21] MEDS: LACTATED RINGERS 1,000 ML 999 ML IV CONT (23:55)
[2024-03-22 00:11] LABS: Alanine Aminotransferase 13 U/L (6-35); Albumin Level 4.1 g/dL (3.5-5.1); Alkaline Phosphatase 59 U/L (38-126); Anion Gap 8 mmol/L (4-12); Aspartate Amino Transferase 19 U/L (14-36); Bilirubin,Total 0.7 mg/dL (0.2-1.3); Blood Urea Nitrogen 7 mg/dL (7-17); Calcium 9.2 mg/dL (8.4-10.2); Carbon Dioxide 24 mmol/L (22-30); Chloride 101 mmol/L (98-107); Estimated CRCL calculation 162 ml/min; Estimated Glomerular Filt Rate > 60; Glucose 163 mg/dL (65-110); Lipase 24 U/L (23-300); Potassium 3.5 mmol/L (3.4-5.0); Sodium 133 mmol/L (137-145)
[2024-03-22 00:13] LABS: Lactic Acid Reflex 1.2 mmol/L (0.7-2.0)
--- NOTE | 2024-03-22 00:19 | PC.NURSE ---
Asked pt to try to provide urine sample. She states she would not try because she did not feel like she had to go
[2024-03-22 00:36] LABS: Influenza A QL RT-PCR Negative (Negative); Influenza B QL RT-PCR Negative (Negative); RSV RNA, RT-PCR Negative (Negative); SARS-CoV-2 RNA PCR Negative (Negative)
[2024-03-22 01:01] VITALS: BP 125/83; PULSE 83; RESP 17; O2SAT 100
[2024-03-22] MEDS: LACTATED RINGERS 1,000 ML 999 ML IV CONT (01:04)
[2024-03-22] MEDS: HALOPERIDOL LACTATE 5 MG/ML VIAL IM (01:04)
[2024-03-22 01:05] LABS: Magnesium 1.6 mg/dL (1.6-2.3)
[2024-03-22 01:09] VITALS: BP 126/84; PULSE 104; RESP 15; O2SAT 100
[2024-03-22 01:25] LABS: BEDSIDEPREGUCG Negative (Negative)
[2024-03-22 01:37] LABS: Bacteria Urine None Seen /hpf; Non Pathogenic Casts 0-2; RBC Urine >100 /hpf (0-2); Squamous Epithelial Cell Urine None Seen /hpf (Few)
[2024-03-22 01:39] LABS: Add Urine Microscopic? YES; Appearance Urine Turbid (Clear); Bilirubin Urine 1+ (Negative); Blood Urine 3+ (Negative); Color Urine Red (Yellow); Glucose Urine UA 3+ mg/dL (Negative); Ketones Urine 4+ mg/dL (Negative); Leukocyte Esterase Ur 1+ LEU/UL (Negative); Nitrate Urine Negative (Negative); Protein Urine 1+ mg/dL (Negative); Specific Grav Ur 1.026 (1.001-1.035); pH Urine 6.5 (5.0-9.0)
[2024-03-22 01:48] LABS: Amphetamine Screen Urine Negative (Negative); Barbiturate Screen Urine Negative (Negative); Benzodiazepines Screen Urine Negative (Negative); Cannabinoid Screen Urine Negative (Negative); Cocaine Screen Urine Negative (Negative); Methadone Screen Urine Negative (Negative); Opiate Screen Urine Negative (Negative); Phencyclidine Screen Urine Negative (Negative)
[2024-03-22 02:04] LABS: Beta-Hydroxybutyrate/Acetoacetate 1.21 mmol/L (0.02-0.27)
[2024-03-22] MEDS: METOCLOPRAMIDE HCL INJ 10 MG/2 ML VIAL IV PUSH (02:16)
[2024-03-22 02:55] VITALS: BP 124/82; PULSE 98; RESP 16; O2SAT 100
== END 2024-03-22 02:56 | disposition home or self-care (01) ==
PROVIDERS: Emergency Medicine; Emergency Provider Physician Assistant; PCP Emergency Medicine
DX: E86.0 Dehydration (principal); R11.2 Nausea with vomiting, unspecified; E10.9 Type 1 diabetes mellitus without complications; Z79.4 Long term (current) use of insulin; Z20.822 Contact with and (suspected) exposure to COVID-19
CPT/HCPCS: 36415; 80053; 80307; 81001; 81025; 82010; 82948; 83605; 83690; 83735; 85025; 87086; 87637; 93005; 96361; 96372; 96374; 99284; J1630; J2765; J7120

== ENCOUNTER 2024-04-13 13:19 | Emergency (ER) | payer BC, SELFPAY ==
--- NOTE | ~2024-04-13 | US_ITS ---
EXAMINATION: US OB <= 14 weeks fetus DATE: 04/13/2024 17:46 INDICATION: Miscarriage. High beta-hCG. TECHNIQUE: Real-time transabdominal pelvic ultrasound was performed. COMPARISON: Ultrasound 02/28/2024 FINDINGS: The uterus measures 13.8 x 6.7 x 7.3 cm. There is an intrauterine gestational sac. A yolk sac is iden tified. The crown rump length measures 3.5 cm, which correlates with an estimated gestational age of 10 weeks and 3 day(s) (+/-) 1 week(s) and 0 day(s). heart motion is identified measuring 168 beats per minute (bpm) by M-mode Doppler. The ovaries are normal. There is no free fluid in the pelvis. IMPRESSION: 1. Single living intrauterine gestation with estimated date of delivery of 11/06/2024. Reviewed, dictated and finalized at location A. CTURAL ENGINEER IMPRESSION: 1. Single living intrauterine gestation with estimated date of delivery of 11/06.
--- OUTSIDE RECORDS SUMMARY | 2024-04-13 13:20 | XMS_ITS | Data Portability ---
Author Organization [facility] [place] Address [address] [place] [address] Care Team Providers Care Hand Bulldozer Name Role Phone VICKY SIMENTAL Sanitation Tank Washer Assessment No assessment recorded. Plan of Treatment Reminders Order Date Submit Date Provider Last Modified By Organization Details Last Modified Time Details Appointments MELA BOYD NT 30 2023 09:00A M Cl Harrison MD Not available Not available Not available Lab pregn nahum test, urine 2019 020 [email or web address] In-Office Order, Internal Use Only DO Not Attach Compendium DO Not Attach Compendium, Do Not Delete/merge, [id number] 10/05/2019 12:26:41 prola ctin, serum 2019 020 [facility], [address], [address], 11/17/2019 09:38:48 lh + FSH, serum 2019 020 [facility], [address] [facility], [place], [address], 11/17/2019 09:38:47 TSH, ultra -sens itive , serum 2019 020 [facility], [address] [facility] [address], [place], [address], 11/17/2019 09:38:48 pregn nahum test, urine 2019 020 [email or web address] In-Office Order, Internal Use Only DO Not Attach Compendium DO Not Attach Compendium, Do Not Delete/merge, [id number] 11/16/2019 12:37:00 Referral None recor ded. Procedures None recor ded. Surgeries None recor ded. Imaging None recor ded. Medication Orders Micro gesti n FE 05/22 (28) 1 mg-20 mcg (21)/ 75 mg (7) table t [facility] [address] [place], [address], 10/05/2019 11:59:36 Prove ra 10 mg table t 2019 020 [facility], [address] [facility], [place], [address], 11/16/2019 12:37:09 Patient TargetsNo targets recorded. Patient Instructions Encounter Date Encounter Id Patient Instructions Last Modified By Organization Details Last Modified Time 11/16/2019 [id number] secondary amenorrhea: care instructions [email or web address] Not available 11/16/2019 12:37:00 Reason for Referral None Reported. Results Created Date Observation Date Name Description Value Unit Range Abnormal Flag Note LastModifiedBy Organization Detail LastModifiedTime 10/20/19 19 10/19/2018 pregn nahum test, urine HCG positi ve Not Available In-Office Order Internal Use Only DO Not Attach Compendium DO Not Attach Compendium, Do Not Delete/merge, [id number] 10/19/2018 10:21:23 10/27/19 19 10/28/2018 bacte rial vagin osis + vagin itis panel , vagin al atopobium vaginae Low - 0 score Not Available [facility] ([facility]) [address] [facility], [place], [address], 10/29/2018 16:35:29 10/27/19 19 10/28/2018 bacte rial vagin osis + vagin itis panel , vagin al bvab 2 Low - 0 score Not Available [facility] ([facility]) [address] [facility], [place], [address], 10/29/2018 16:35:29 10/27/19 19 10/28/2018 bacte rial vagin osis + vagin itis panel , vagin al megasphaera 1 Low - 0 score Calcu late total score by linda duran the 3 indiv idual bacte rial vagin osis (BV) marke r score s toget her. Total score is inter prete d as follo ws: Total score 0-1: Indic ates the absen ce of BV. Total score 2: Indet ermin ate for BV. Addit ional clini bety data shoul d be evalu ated to estab mick a diagn osis. Total score 3-6: Indic ates the prese nce of BV. This test was devel oped and its perfo rmanc e miladys cteri stics deter mined by [facility]. It has not been clear ed or appro ronald by the Food and Drug Admin istra tion. The FDA has deter mined that such clear ance or appro tommie is not neces jason. Not Available [facility] ([facility]) [address] [place], [address], 10/29/2018 16:35:29 10/27/19 19 10/28/2018 bacte rial vagin osis + vagin itis panel , vagin al trich vag by HOMERO Negati ve negati ve Not Available [facility] ([facility]) [address] [place], [address], 10/29/2018 16:35:29 10/27/19 19 10/28/2018 bacte rial vagin osis + vagin itis panel , vagin al chlamydia trachomatis, HOMERO Negati ve negati ve Not Available [facility] ([facility]) [address] [place], [address], 10/29/2018 16:35:29 10/27/19 19 10/28/2018 bacte rial vagin osis + vagin itis panel , vagin al neisseria gonorrhoeae, HOMERO Negati ve negati ve Not Available [facility] ([facility]) [address] [place], [address], 10/29/2018 16:35:29 10/27/19 19 10/29/2018 bacte rial vagin osis + vagin itis panel , vagin al nidia albicans, HOMERO Positi ve negati ve abnormal Not Available [facility] ([facility]) [address] [facility], [place], [address], 10/29/2018 16:35:29 10/27/19 19 10/29/2018 bacte rial vagin osis + vagin itis panel , vagin al nidia glabrata, HOMERO Negati ve negati ve This test was devel oped and its perfo rmanc e miladys cteri stics deter mined by [facility]. It has not been clear ed or appro ronald by the Food and Drug Admin istra tion. The FDA has deter mined that such clear ance or appro tommie is not neces jason. Not Available [facility] ([facility]) [address] [facility], [place], [address], 10/29/2018 16:35:29 10/27/19 19 10/26/2018 urina lysis , dipst ick Protein Negati ve Not Available In-Office Order Internal Use Only DO Not Attach Compendium DO Not Attach Compendium, Do Not Delete/merge, [id number] 10/26/2018 11:21:30 10/27/19 19 10/26/2018 urina lysis , dipst ick Glucose Negati ve Not Available In-Office Order Internal Use Only DO Not Attach Compendium DO Not Attach Compendium, Do Not Delete/merge, [id number] 10/26/2018 11:21:30 10/05/19 20 10/05/2019 pregn nahum test, urine HCG negati ve Not Available In-Office Order Internal Use Only DO Not Attach Compendium DO Not Attach Compendium, Do Not Delete/merge, [id number] 10/05/2019 12:14:51 11/16/19 20 11/17/2019 lh + FSH, serum LH 55.3 mIU/m L Adult Femal e: Folli cular phase 2.4 - 12.6 Ovula tion phase 14.0 - 95.6 Lutea l phase 1.0 - 11.4 Postm enopa usal 7.7 - 58.5 Not Available [facility] ([facility]) [address] [place], [address], 11/17/2019 09:38:47 11/16/1911/17/2019 lh + FSH, serum FSH 11.5 mIU/m L Adult Femal e: Folli cular phase 3.5 - 12.5 Ovula tion phase 4.7 - 21.5 Lutea l phase 1.7 - 7.7 Postm enopa usal 25.8 - 134.8 Not Available [facility] ([facility]) [address] [place], [address], 11/17/2019 09:38:47 11/16/1911/17/2019 TSH, ultra -sens itive , serum TSH 2.050 uIU/m L 0.450- 4.500 Not Available [facility] ([facility]) [address] [place], [address], 11/17/2019 09:38:48 11/16/1911/17/2019 prola ctin, serum prolactin 24.4 NG/mL 4.8-23 .3 above high normal Not Available [facility] ([facility]) [address] [place], [address], 11/17/2019 09:38:48 11/16/1911/16/2019 pregn nahum test, urine HCG negati ve Not Available In-Office Order Internal Use Only DO Not Attach Compendium DO Not Attach Compendium, Do Not Delete/merge, [id number] 11/16/2019 12:29:25 11/01/1910/29/2018 US, obste tric, 1st trime ster No observ ation record ed. [email or web address] [facility] (Radiology) [address] [place] [address], [address], 11/09/2018 18:04:47 Result Notes None recorded. 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 995800832 Active Radha collazo, [facility] 9 09:49:34 Microcyt ic anemia 316553982 Active 2017 hgb/hct 10.8/32.5 , MCV 80 Radha collazo [facility] 9 09:49:34 Metaboli c acidosis , increase d anion gap (IAG) 53646420 Active 2017 Radha collazo, [facility] 9 09:49:34 Hypokale shaji 03774723 Active 2017 Radha collazo, [facility] 9 09:49:34 Pregnanc y 08820514 Completed 201811/30/2018 [facility] 09:52:22 Uncontro lled type 1 diabetes mellitus 180082020 Active 2017 Carrie Joseph PA-C Attn: Accountedyta g,[address] [facility], [place], [address], [facility] 9 09:30:16 Metaboli c alkalosi s 5106594 Active 2017 Carrie Joseph PA-C Attn: Accountin g,[address] [facility], [place], [address], [facility] 9 09:31:33 Hypereme sis gravidar um with metaboli c disturba nce 691633075 Active 2018 Carrie Joseph PA-C Attn: Accountin g,[address] [facility], [place], [address], [facility] 9 09:31:33 Notes:multiple admissions fo r DKA and leaving AMA Problem Notes None recorded. Procedures Surgical History Date Name Laterality Status Provider Name and Address Organization Details Recorded Time 11/11/19 19 Dilation and C[facility] 11/30/2018 09:54:12 11/10/19 19 Cerumen Removal completed Carrie Joseph PA-C Attn: Accounting,[address] [facility], [place], [address], [facility] 11/09/2018 08:59:31 08/16/19 19 Date of Last Pap Smear [facility] 10/19/2018 10:17:59 10/11/19 17 Caesarean Section completed [facility] 08/15/2018 14:33:55 05/03/19 11 Tonsillectomy completed KAMI Cool [facility] 01/17/2018 14:10:03 Imaging Results Imaging Date Name Status LastModified by Organiz ation Details LastModified Time 10/29/2018 US, obstetric, 1st trimester completed [email or web address] [facility] (Radiology) [address] [place], [address], 11/09/2018 18:04:47 Procedure Notes None recorded. Medical Equipment None Reported. Allergies No known drug allergies Medications Name Sig Start Date Stop Date Status Note LastModified by Organization Details LastModified Time medroxypro gesterone 10 mg tablet Take 1 tablet every day by oral route. active Not Available Not Available No t Available methylergo novine 0.2 mg tablet 11/30 completed Not Available Not Available Not Available sulfametho xazole 800 mg-trimeth oprim 160 mg tablet Take 1 tablet every 12 hours by oral route for 5 days. 08/10 completed Not Available Not Available Not Available omeprazole 40 mg capsule,de layed release Take 1 capsule every day by oral route. 08/10 completed prn Not Available Not Available Not Available erythromyc in 250 mg tablet Take 1 tablet every 6 hours by oral route as needed. 05/26 completed as needed for nausea Not Available Not Available Not Available Microgesti n FE 05/22 (28) 1 mg-20 mcg (21)/75 mg (7) tablet Take 1 tablet every day by oral route. 10/04 completed Not Available Not Available Not Available doxycyclin e monohydrat e 100 mg capsule 11/30 completed Not Available Not Available Not Available insulin syringe U-100 with needle 0.3 mL 31 gauge x 5/16 USE WITH INSULIN 4 TIMES DAILY active Not Available Not Available No t Available ibuprofen 600 mg tablet 11/30 completed Not Available Not Available Not Available ondansetro n 4 mg disintegra ting tablet active Not Available Not Available Not Available sertraline 50 mg tablet Take 1 tablet every day by oral route. 08/10 completed pt d/c Not Available Not Available Not Available Vitamin 27 mg iron-0.8 mg tablet Take 1 tablet every day by oral route. 11/09 completed Not Available Not Available Not Available insulin lispro (U-100) 100 unit/mL subcutaneo us pen active Not Available Not Available Not Available insulin lispro 4u w/ meals + sliding scale active Not Available Not Available No t Available Lantus Solostar U-100 Insulin 12u qday 05/26 completed Not Available Not Available Not Available pen needle, diabetic 32 gauge x 5/32 11/30 completed Not Available Not Available Not Available OneTouch Verio test strips active Not Available Not Available Not Available insulin syringe U-100 with needle 0.3 mL 31 gauge x 15/64 active Not Available Not Available Not Available Humalog KwikPen U-200 Insulin 200 unit/mL (3 mL) subcutaneo us active Not Available Not Available Not Available Basaglar KwikPen U-100 Insulin 100 unit/mL (3 mL) subcutaneo us INJECT 15 UNITS UNDER THE SKIN EVERY NIGHT AT BEDTIME active Not Available Not Available No t Available Admelog U-100 Insulin lispro 100 unit/mL subcutaneo us solution 4 units SQ with meals plus sliding scale active Not Available Not Available No t Available TechLITE Insulin Syringe (half unit) 0.3 mL 31 gauge x 5/16 USE ONE NEW SYRINGE 4 TIMES active Not Available Not Available No t Available Semglee (insulin glargine-y fgn) Pen 100 unit/mL (3 mL) subcutaneo us INJECT 18 UNITS UNDER THE SKIN EVERY NIGHT active Not Available Not Available No t Available Vitals Date Recorded Body height Body mass index (BMI) Body weight Heart rate Respiratory rate Oxygen saturation Oxygen saturation in Arterial blood by Pulse oximetry Body temperature Systolic blood pressure Diastolic blood pressure Provider Name and Address Organization Details Last Updated DateTime 9 156.21 cm 24.5 kg/m2 01916.1 9 g 114 /min 16 /min 98 % 98 % 114 [degF] 122 mm[Hg] 78 mm[Hg] Mar Menjivar MA [facility] 9 08:46:55 Date Recorded Body height Body mass index (BMI) Body weight Systolic blood pressure Diastolic blood pressure Provider Name and Address Organization Details Last Updated DateTime 11/09/2018 156.21 cm 25.4 kg/m2 92898.08 g 108 mm[Hg] 60 mm[Hg] Radha Perez [facility] 9 14:53:20 Date Recorded Body height Body mass index (BMI) Body weight Systolic blood pressure Diastolic blood pressure Provider Name and Address Organization Details Last Updated DateTime 11/30/2018 156.21 cm 26.5 kg/m2 58470.27 1962 g 110 mm[Hg] 74 mm[Hg] Radha Perez [facility] 9 09:52:01 Date Recorded Body height Body mass index (BMI) Body weight Systolic blood pressure Diastolic blood pressure Provider Name and Address Organization Details Last Updated DateTime 10/05/2019 156.21 cm 30.1 kg/m2 85072.32 g 100 mm[Hg] 80 mm[Hg] Radha Perez MA [facility] 0 11:58:16 Date Recorded Body height Body mass index (BMI) Body weight Systolic blood pressure Diastolic blood pressure Provider Name and Address Organization Details Last Updated DateTime 11/16/2019 156.21 cm 31.9 kg/m2 13056.17 g 106 mm[Hg] 78 mm[Hg] Cortney Lainez [facility] 0 12:12:18 Date Recorded Body height Provider Name an d Address Organization Details Last Updated DateTime 12/12/2019 156.21 cm Radha Perez [place] [facility] 12/11 14:47:30 Social History Question Answer Notes LastModified by Organizat ion Details LastModified Time Tobacco Smoking Status Never Smoker KAMI Cool null, [place] [facility] 01/17/2018 14:07:35 Do You Have An Advance Directive? No Information not available 08/10/2018 What Is Your Level Of Alcohol Consumption? Occasional Information not available 10/05/2019 If You Are , What Was Your Level Of Alcohol Consumption Prior To ? Occasional None Since Information not available 10/19/2018 Is Blood Transfusion Acceptable In An Emergency? Yes Information not available 08/15/2018 What Is Your Level Of Caffeine Consumption? Moderate Unsweet Tea Information not available 01/17/2018 Live With Cats/exposure To Cat Litter Yes Information not available 10/19/2018 How Much Tobacco Do You Chew? None Information not available 01/17/2018 Are You Currently Employed? Yes Information not available 08/15/2018 What Type Of Diet Are You Following? DIABETIC Watches Sugar And Carbs Information not available 01/17/2018 Which Illicit Or Recreational Drugs Have You Used? None Information not available 01/17/2018 Do You Or Have You Ever Used E-cigarettes Or Vape? Never Used Electronic Cigarettes Information not available 10/05/2019 Education 12 2 Years At [employer] Information not available 01/17/2018 What Is Your Occupation? [employer] Information not available 10/05/2019 Frequent Air Travel No Information not available 10/19/2018 Are There Any Guns Present In Your Home? No Information not available 08/10/2018 Hard Of Hearing Or Deaf In One Or Both Ears? No Information not available 01/17/2018 Legally Blind In One Or Both Eyes? No Information not available 01/17/2018 Live Alone Or With Others? With Others Information not available 08/15/2018 Marital Status Single Informatio n not available 01/17/2018 What Was The Date Of Your Most Recent Tobacco Screening? 11/16/2019 [email or web address] Information not available 11/16/2019 How Many Children Do You Have? 1 Information not available 08/15/2018 Performs Monthly Self-breast Exam? No Information not available 08/15/2018 Do You Use Protection During Sex? Usually Information not available 10/05/2019 What Is Your Relationship Status? Single Information not available 08/15/2018 Seat Belts Used Routinely Yes Information not available 08/10/2018 Are You Sexually Active? Yes Information not available 08/15/2018 Smoke Alarm In Home Yes Information not available 08/10/2018 Do You Have Smoke And Carbon Monoxide Detectors In Your Home? Yes Information not available 10/19/2018 Are You Passively Exposed To Smoke? No Information not available 10/19/2018 Do You Or Have You Ever Used Smokeless Tobacco? Never Used Smokeless Tobacco Information not available 10/05/2019 How Much Tobacco Do You Smoke? No [email or web address] Information not available 11/16/2019 Smoking Pre- No Information not available 10/19/2018 General Stress Level Low Information not available 10/19/2018 Do You Use Sunscreen Routinely? Yes Information not available 08/10/2018 Sex: Unknown Functional Status Question Answer Note LastModified by Organizat ion Details LastModified Time What is your exercise level? Occasional walks Information not available 01/17/2018 Mental Status None recorded. Family History Relationship Description Onset Age of this Age Resolved Age Notes LastModified by Organization Details LastModified Time Mother Anemia [email or web address] Not available 0 01/17/2018 14:07:20 Notes:no relationship with d ad Medical History Condition Response Coronary Artery Disease N Other N Atrial Fibrillation N High Blood Pressure N Breast Cancer N Lung Disease N Depression N COPD N Blood Clots N Breast Problem N Anesthesia Complications N Headaches/Migraines N Anxiety Disorder Y Muscle, Joint, or Bone Problems N Infertility N Polyps N Acid Reflux (GERD) Y Cancer N Stroke N Endometriosis N High Cholesterol N Liver Disease N Headaches N Thyroid Problems N Kidney or Bladder Problems N GI Problems Y Acne N Eating Disorder N Skin Problems N Anemia N Heart Attack ([place]) N Diabetes Y Ovarian Cancer N Blood Transfusions N Seizures/Epilepsy N Abuse/Domestic Violence N Asthma N Allergies N Hepatitis N Heart Disease N Pre-Eclampsia N Heart Failure N Osteoporosis N Gynecological History Statement/Question Response Abnormal Pap N Flow Heavy On BCP's at Conception? N STIs/STDs N HPV Vaccine N Age at Menarche 13 Current Control Method None Age at First Child 21 Sexually Active? Y Menses Monthly N Date of Last Pap Smear 08/15/2018 Sexual Problems? N LMP Definite Desired Control Method None Obstetrics History GPAL:G 2 P 1 0 1 1 Type Value Multiple Births 0 Full Term 1 Induced 0 Spontaneous 1 Premature 0 Living 1 Ectopics 0 Total 2 Immunizations Vaccine Type Date Status Note Provider Nam e and Address Organization Details Recorded Time Influenza, split virus, quadrivalent, preservative 9 completed Not Available [facility] 05/20/2019 02:37:03 Past Encounters Encounter ID Performer Location Encounter Start Date Encounter Closed Date Diagnosis/Indication Diagnosis SNOMED-CT Code Diagnosis ICD10 Code [id number] [facility] Torres (Adult Med) [address] [place] [address] 01/17/2018 13:54:22 01/18/2018 15:15:08 Type 1 diabetes mellitus 19744020 E10.9 Microcytic anemia 795892 007 D50.9 Mixed anxi ety and depressive disorder 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 89 Influenza vaccine needed 5061559877 106 Z23 Constipation 58383754 K5 9.00 [id number] MD Malou Adames (Adult Med) [address] [place] [address] 08/10/2018 08:25:31 08/11/2018 09:08:16 Nausea 425795427 R11.0 Amenorrhea 50055618 N91. 2 Type 1 jordyn betjustin mellitus 98718934 E10.69 Abnormal urinalysis 1672 15896 R82.90 Glycosuria 15306598 R81 [id number] Vicky Westfall ([employer] DRIVER) [address] [place] [address] 08/15/2018 14:14:40 08/16/2018 11:45:52 Gynecologic examination 84981698 Z01.419 Fertility care 502265911 Z31.84 Irregular periods 671677 07 N92.6 [id number] iVcky Westfall ([employer] DRIVER) [address] [place] [address] 10/19/2018 10:07:32 10/20/2018 13:18:27 Missed period 95712486 N92.5 Routine an tenatal care 759599418 Z34.81 Pre-existi ng type 1 diabetes mellitus in 292845584 O24.829 [id number] Vicky SUTTON ([employer] DRIVER) [address] [place] [address] 10/26/2018 10:57:05 10/27/2018 11:52:06 Routine care 577330807 Z34.81 [id number] ALPES[facility] Torres (Adult Med) [address] [place] [address] 11/09/2018 08:36:19 11/10/2018 10:43:27 Type 1 diabetes mellitus 60011329 E10.69 Impacted c erumen in right ear 4191639237 556556 H61.21 Mood disorder 74767395 F 39 [id number] Vicky Westfall ([employer] DRIVER) [address] [place] [address] 11/09/2018 14:43:07 11/10/2018 11:37:49 Missed miscarriage 81600066 O02.1 [id number] Vicky SUTTON ([employer] DRIVER) [address] [place] [address] 11/30/2018 09:44:42 11/30/2018 14:02:55 Oral contraceptive prescribed 609552952 Z30.011 Postoperative visit 1836 00859 Z09 [id number] Vicky Westfall [facility] ([employer] DRIVER) [address] [place] [address] 10/05/2019 11:46:51 10/06/2019 09:08:38 Missed period 25426468 N92.5 [id number] Vicky [facility]fall [facility] ([employer] DRIVER) [address] [place] [address] 11/16/2019 12:03:11 11/21/2019 09:33:49 Amenorrhea 90827036 N91.2 [id number] Vicyk Westfall [facility] ([employer] DRIVER) [address] [place] [address] 12/12/2019 08:01:47 12/13/2019 19:23:43 Irregular periods 50551495 N92.6 Health Concerns Section Related Observation LastModified by Organization Detai ls LastModified Time None Recorded Concern Status LastModified by Organization Details LastModified Time None Recorded Advance Directives Directive N: Payers Encounter Date Sequence Insurance Name Policy Number Policy Garcia Covered Member ID Garcia Member ID Guarantor Name 11/09/2018 1 [employer] [place] [id number] Karina Fuchs [id number] Karina Fuchs 11/30/2018 1 [employer] [place] [id number] Karina Fuchs [id number] Karina Fuchs 10/05/2019 1 [employer] [place] [id number] Karina Fuchs [id number] Karina Fuchs 11/16/2019 1 [employer] [place] [id number] Karina Fuchs [id number] Karina Fuchs 12/12/2019 1 [employer] [place] [id number] 0003 Karina Fuhcs [id number] Karina Fuchs Notes Date Note Type Note Provider Name and Address Organization Details Recorded Time 11/09/2018 text/html Pt. presents for follow-up to decreasing beta hCG quant with no bleeding. She denies any pain. Vicky Simental [place], [place] - [place] 11/09/2018 16:57:54 11/09/2018 text/html Went to [facility]; pt says she was d/c yesterday for hyperemesis, had miscarriage. not planned. interested in control.has appt w/ endocrine Wednesday (Dr. Sanches)glucose in low 100s since d/c; checking QID. No med changes. She hasn't made any dietary changes.told A1c was 8.7% denies any constipation, GERD, diarrhea, N/V since she was d/c. Carrie Joseph PA-C Attn: Accounting,[address] [facility], [place], [id number], [facility] 11/09/2018 11:24:58 11/30/2018 text/html Pt presents for post OP visit 2 weeks s/p suction D&C for a missed ab. She denies pain and bleeding. She has no complaints but does want to get on control. Vicky collazo, [facility] 11/30/2018 10:12:44 10/05/2019 text/html Pt presents with c/o missed period. She has not been taking her OCPs since 03/2019 because it messes with her blood sugar. She is using condoms. It has been 36 days since her last cycle and this has never happened to her before. Vicky collazo, [facility] 10/05/2019 12:26:16 11/16/2019 text/html Pt. presents wit h c/o no period for three months. She is sexually active and not on any control. Vicky collazo, [facility] 11/20/2019 11:46:11 12/12/2019 text/html Telephone visit due to COVID-19 pandemic. Pt. called with results of blood work done for amenorrhea. She was supposed to take provera after an negative UPT in office on 11/16/19. However, the patient never took the medication and started her period on her own 12/09/19. She is not on any control. Vicky collazo, [facility] 12/12/2019 15:15:22 OBGyn Episode Ob Episode Information Episode Created Date Number of Fetuses Patient Bloodtype Patient rh Status Prepregnancy Weight lbs Domestic Partner Domestic Partner Phone Father Name Manager Radiation Status 08/16/19 19 1 CLOSED Fetus Data First Name Last Name Admitted to NICU Weight (g) Sex Living Outcome Pediatric Complications Fetus ID Race Codes Race Delivery Type F Full Term [id number] Aarti Calculation AARTI Calculation Method Initial Aarti Date Initial Exam Date Initial Exam Provider Initial Ultrasound Date Last Menstrual Period Date Ultra Sound Weeks Gestation Conception by IVF Embryo Age at Transfer Date of Transfer 0 Eighteen To Twenty Week Aarti Update Ultra Sound Date Fundal Height At Umbil Quickening Date Ultra Sound Latest Weeks Gestation Final Aarti Confirmed By Final Aarti Confirmed Date Final Aarti Date Ultra Sound Latest Days Gestation 0 0 Menstrual History Last Menstrual Date Menses Monthly On Bcp Conception Prior Menses Frequency Hcg Plus Date Menarche Onset Age Delivery Information Delivery Date Delivery Type Labor Anesthesia Weeks Gestation Incision Type Labor Labor Length Hrs Delivered By Post Complications Tubal Sterilization Discharge Date Comments 7 Discharge Information Feeding Method Contraceptive Method Maternal HG B and HCT Levels Ob Episode Information Episode Created Date Number of Fetuses Patient Bloodtype Patient rh Status Prepregnancy Weight lbs Domestic Partner Domestic Partner Phone Father Name Manager Radiation Status 12/01/19 19 1 CLOSED Fetus Data First Name Last Name Admitted to NICU Weight (g) Sex Living Outcome Pediatric Complications Fetus ID Race Codes Race Delivery Type , [place]ont[place] ous [id number] Aarti Calculation AARTI Calculation Method Initial Aarti Date Initial Exam Date Initial Exam Provider Initial Ultrasound Date Last Menstrual Period Date Ultra Sound Weeks Gestation Conception by IVF Embryo Age at Transfer Date of Transfer 0 Eighteen To Twenty Week Aarti Update Ultra Sound Date Fundal Height At Umbil Quickening Date Ultra Sound Latest Weeks Gestation Final Aarti Confirmed By Final Aarti Confirmed Date Final Aarti Date Ultra Sound Latest Days Gestation 0 0 Menstrual History Last Menstrual Date Menses Monthly On Bcp Conception Prior Menses Frequency Hcg Plus Date Menarche Onset Age Delivery Information Delivery Date Delivery Type Labor Anesthesia Weeks Gestation Incision Type Labor Labor Length Hrs Delivered By Post Complications Tubal Sterilization Discharge Date Comments 9 Discharge Information Feeding Method Contraceptive Method Maternal HG B and HCT Levels Ob Episode Information Episode Created Date Number of Fetuses Patient Bloodtype Patient rh Status Prepregnancy Weight lbs Domestic Partner Domestic Partner Phone Father Name Manager Radiation Status 10/20/19 19 1 O Positive sally link CLOSED Fetus Data First Name Last Name Admitted to NICU Weight (g) Sex Living Outcome Pediatric Complications Fetus ID Race Codes Race Delivery Type [id number] Aarti Calculation AARTI Calculation Method Initial Aarti Date Initial Exam Date Initial Exam Provider Initial Ultrasound Date Last Menstrual Period Date Ultra Sound Weeks Gestation Conception by IVF Embryo Age at Transfer Date of Transfer 05/13/19 20 10/20/19 19 [email or web address] 24 08/06/2018 0 Eighteen To Twenty Week Aarti Update Ultra Sound Date Fundal Height At Umbil Quickening Date Ultra Sound Latest Weeks Gestation Final Aarti Confirmed By Final Aarti Confirmed Date Final Aarti Date Ultra Sound Latest Days Gestation 0 05/13/19 20 0 Pre- Flowsheet Flowsheet Date 10/19/2018 Regalado Score Blood Edema Fundus Height Fundus Units Glucose Ketones Leukocytes Nitrite Labor Signs Protein Cervic Dilation Cervic Effacement Cervic Station Type Weight in lbs Pre/Post Dialysis Refused Weight 134.30045857585 BP Diastolic BP Location Tested BP Systolic BP Type 80 108 sitting Fetus Heart Rate Present Fetus Movement Comments Flowsheet Date 10/26/2018 Regalado Score Blood Edema Fundus Height Fundus Units Glucose Ketones Leukocytes Nitrite Labor Signs Protein Cervic Dilation Cervic Effacement Cervic Station Type Weight in lbs Pre/Post Dialysis Refused Weight 138.188907639295 BP Diastolic BP Location Tested BP Systolic BP Type 72 110 sitting Fetus Heart Rate Present Fetus Movement Comments Flowsheet Date 11/09/2018 Regalado Score Blood Edema Fundus Height Fundus Units Glucose Ketones Leukocytes Nitrite Labor Signs Protein Cervic Dilation Cervic Effacement Cervic Station Type Weight in lbs Pre/Post Dialysis Refused With clothes 132.257794715421 BP Diastolic BP Location Tested BP Systolic BP Type 78 R arm 122 sitting Fetus Heart Rate Present Fetus Movement Comments Flowsheet Date 11/09/2018 Regalado Score Blood Edema Fundus Height Fundus Units Glucose Ketones Leukocytes Nitrite Labor Signs Protein Cervic Dilation Cervic Effacement Cervic Station Type Weight in lbs Pre/Post Dialysis Refused Weight 136.370838665762 BP Diastolic BP Location Tested BP Systolic BP Type 60 L arm 108 sitting Fetus Heart Rate Present Fetus Movement Comments Flowsheet Date 11/30/2018 Regalado Score Blood Edema Fundus Height Fundus Units Glucose Ketones Leukocytes Nitrite Labor Signs Protein Cervic Dilation Cervic Effacement Cervic Station Type Weight in lbs Pre/Post Dialysis Refused Weight 142.638497305801 BP Diastolic BP Location Tested BP Systolic BP Type 74 110 sitting Fetus Heart Rate Present Fetus Movement Comments Menstrual History Last Menstrual Date Menses Monthly On Bcp Conception Prior Menses Frequency Hcg Plus Date Menarche Onset Age 0408/06/2018 true 5 201 9 12 Genetic Screening And Infection History Question Response Note Patient's Age Will Be 35 Yea rs Or Older At Estimated Date of Delivery false Thalassemia (Dutch, Slovak, Mediterranean, Or Background): MCV < 80 false Neural Tube Defect (Meningom yelocele, Spina Bifida, Or Anencephaly) false Congenital Heart Defect false Down Syndrome false Tiburcio-Sachs (eg, Buddhist, Cajun, [place]) f alse Darron Disease false Sickle Cell Disease Or Trait () false Hemophilia Or Other Blood Disorders false Muscular Dystrophy false Cystic Fibrosis false Head Waters's Chorea false Mental Retardation/Autism false Other Inherited Genetic Or Chromosomal Disorder false Maternal Metabolic Disorder (eg, Type 1 Diabetes, PKU) true pt has type 1 diabetes Patient Or Baby's Father Had A Child With Defects Not Listed Above false Recurrent Loss, Or A Stillbirth false Medications (including Suppl ements, Vitamins, Herbs, OTC Drugs), Illicit/Recreational Drugs, Alcohol true Any Other Genetic History false Live With Someone With TB Or Exposed To TB false Patient Or Partner Has History Of Genital Herpes false Rash Or Viral Illness Since Last Menstrual Perio d false History Of STD, Gonorrhea, Chlamydia, HPV, Syphi lis false Other Infection History false History of HIV false History of Hepatitis false Prior GBS-infected child false Delivery Information Delivery Date Delivery Type Labor Anesthesia Weeks Gestation Incision Type Labor Labor Length Hrs Delivered By Post Complications Tubal Sterilization Discharge Date Comments Discharge Information Feeding Method Contraceptive Method Maternal HG B and HCT Levels
--- OUTSIDE RECORDS SUMMARY | 2024-04-13 13:20 | XMS_ITS | Data Portability ---
Author Organization [facility] [place] Address [address] [place] [address] Assessment Encounter Date Assessment Date Assessment LastModified by Organization Details LastModified Time 01/28/2023 01/28/2023 Patient is 34 weeks . Discussed T1DM comanagement with MFM. Continue appointments as scheduled with ERNESTINA Darling at [facility]. Not available 01/28/2023 17:57:06 Plan of Treatment Reminders Order Date Submit Date Provider Last Modified By Organization Details Last Modified Time Details Appointments None recorded. [facility]inal[facility], [email or web address] [address], [address], [place], [address], 12:22:58 Referral None recorded. Procedures None recorded. Surgeries None recorded. Imaging US, obstetric, follow-up [email or web address], [address], [address], [place], [address], 19:57:31 US, obstetric, biophysical profile + non-stress test [email or web address], [address], [address], [place], [address], 19:57:31 Medication Orders promethazin e 12.5 mg tablet 2022 023 [id number], [address] [facility], [place], [place], [id number], 11:19:02 Patient TargetsNo targets recorded. Patient InstructionsNo instructions recorded. Reason for Referral None Reported. Results Created Date Observation Date Name Description Value Unit Range Abnormal Flag Note LastModifiedBy Organization Detail LastModifiedTime 01/29/20 23 01/28/2023 urina lysis , dipst ick Leukocytes Negati ve Not Available [facility] [address], [place], [address], 01/28/2023 12:21:38 01/29/20 23 01/28/2023 urina lysis , dipst ick Nitrite Negati ve Not Available [facility] [address], [place], [address], 01/28/2023 12:21:38 01/29/20 23 01/28/2023 urina lysis , dipst ick Urobilinogen Negati ve Not Available [facility] [address], [place], [address], 01/28/2023 12:21:38 01/29/20 23 01/28/2023 urina lysis , dipst ick Protein Trace Not Available [facility] [address], [place], [address], 01/28/2023 12:21:38 01/29/20 23 01/28/2023 urina lysis , dipst ick pH 5 Not Available [facility] [address], [place], [address], 01/28/2023 12:21:38 01/29/20 23 01/28/2023 urina lysis , dipst ick Specific [place] 1.030 Not Available [facility] [address], [place], [address], 01/28/2023 12:21:38 01/29/20 23 01/28/2023 urina lysis , dipst ick Ketone Large Not Available [facility] [address], [place], [address], 01/28/2023 12:21:38 01/29/20 23 01/28/2023 urina lysis , dipst ick Bilirubin Negati ve Not Available [facility] [address], [place], [address], 01/28/2023 12:21:38 01/29/20 23 01/28/2023 urina lysis , dipst ick Glucose 1000 Not Available [facility] [address], [place], [address], 01/28/2023 12:21:38 01/29/20 23 01/28/2023 urina lysis , dipst ick Appearance Cloudy Not Available [facility] [address], [place], [address], 01/28/2023 12:21:38 01/29/20 23 01/28/2023 urina lysis , dipst ick Color Dark Yellow Not Available [facility] [address], [place], [address], 01/28/2023 12:21:38 01/29/20 23 01/28/2023 US, gabriela taverao w-up No observ ation record ed. [email or web address] [facility] [address], [place], [address], 01/28/2023 10:41:08 01/29/20 23 01/28/2023 US, ibis garcia, bioph ysica l profi le + non-s tress test No observ ation record ed. [email or web address] [facility] [address], [place], [address], 01/28/2023 10:41:00 01/29/20 23 01/28/2023 US, obste tric, follo w-up No observ ation record ed. bebeto Kassi [address], [place], [address], 02/02/2023 17:54:42 Result Notes None recorded. Problems Name Problem SNOMED Code Status Onset Date Resolution Date Notes Provider Name and Address Organization Details Recorded Time Pregnanc y 16768743 Completed 202202/19/2023 Manda Yousif [facility] 3 11:10:14 Type 1 diabetes mellitus 19346972 Completed followed by Tatyana DO, last A1c 6.7%, on insulin pump with CGM; hx of DKA at beginnin g of pregnanc y, frequent nausea/v omiting Manda Yousif [facility] 3 11:10:13 Ketoacid osis due to type 1 diabetes mellitus 654248135 Active 2018 Type 1 diabetes mellitus with ketoacid osis without coma;Pra ctice ID: [id number] Not Available [facility] 0 21:12:57 Pregnanc y and type 1 diabetes mellitus 668550139 Active 2018 Pre-exis ting diabetes , type 1, in pregnanc y, first trimeste r;Practi ce ID: [id number] Not Available [facility] 0 21:12:57 Finding of contents of cervix 940219670 Active 2018 Weeks of gestatio n of pregnanc y not specifie d;Practi ce ID: [id number] Not Available [facility] 0 21:12:57 Problem Notes None recorded. Procedures Surgical History Date Name Laterality Status Provider Name and Address Organization Details Recorded Time 0 Dilation and curettage completed [facility] 01/28/2023 11:05:45 9 Dilation and curettage completed [facility] 01/28/2023 11:05:[address] [facility] 01/28/2023 10:33:36 Imaging Results Imaging Date Name Status LastModified by Organiz ation Details LastModified Time 01/28/2023 US, obstetric, follow-up completed [address], [place], [address], 01/28/2023 10:41:08 01/28/2023 US, obstetric, biophysical profile + non-stress test completed [address], [place], [address], 01/28/2023 10:41:00 01/28/2023 US, obstetric, follow-up completed [address]beto [address], [facility], [place], [address], 02/02/2023 17:54:42 Procedure Notes None recorded. Medical Equipment None Reported. Allergies No known drug allergies Medications Name Sig Start Date Stop Date Status Note LastModified by Organization Details LastModified Time promethazin e 12.5 mg tablet TAKE 1 TABLET BY MOUTH FOUR TIMES DAILY active Not Available Not Available No t Available Lantus U-100 Insulin 100 unit/mL subcutaneou s solution INJECT 14 UNITS EVERY NIGHT AT BEDTIME IN THE CASE OF INSULIN PUMP FAILURE. NOTIFY [facility] DM TEAM LUPE IF PUMP FAILS active Not Available Not Available No t Available insulin aspart U-100 100 unit/mL subcutaneou s solution INJECT UP TO 100 UNITS UNDER THE SKIN DAILY VIA INSULIN PUMP active Not Available Not Available No t Available insulin lispro (U-100) 100 unit/mL subcutaneou s solution INJECT UP TO 60 UNITS UNDER THE SKIN PER DAY PER INSULIN PUMP SETTINGS active Not Available Not Available No t Available scopolamine 1 mg over 3 days transdermal patch APPLY 1 PATCH TO THE SKIN DIRECTED EVERY 72 HOURS active Not Available Not Available No t Available ondansetron 4 mg disintegrat ing tablet DISSOLVE 1 TABLET ON THE TONGUE EVERY 8 HOURS NEEDED FOR NAUSEA OR VOMITING active Not Available Not Available No t Available metoclopram leydi 10 mg tablet TAKE 1 TABLET BY MOUTH EVERY 6 HOURS FOR NAUSEA DIRECTED active Not Available Not Available No t Available nitrofurant oin monohydrate /macrocryst als 100 mg capsule TAKE 1 CAPSULE BY MOUTH EVERY 12 HOURS FOR 5 DAYS 01/28 completed Not Available Not Available Not Available Easy Touch Insulin Syringe 0.3 mL 30 gauge x /16 USE 1 SYRINGE TO INJECT INSULIN 5-8 TIMES PER DAY IN CASE OF PUMP FAILURE. NOTIFY DOCTOR LUPE IF PUMP FAILS. active Not Available Not Available No t Available Semglee (insulin glargine-yf gn) Pen 100 unit/mL (3 mL) subcutaneou s INJECT 25 UNITS UNDER THE SKIN EVERY EVENING active Not Available Not Available No t Available Vitals Date Recorded Body height Body mass index (BMI) Body weight Systolic blood pressure Diastolic blood pressure Provider Name and Address Organization Details Last Updated DateTime 01/28/2023 157.48 cm 28.5 kg/m2 17747.40 972 g 130 mm[Hg] 77 mm[Hg] [facility] 10:40:10 Date Recorded Body height Body mass index (BMI) Body weight Systolic blood pressure Diastolic blood pressure Provider Name and Address Organization Details Last Updated DateTime 03/08/2023 157.48 cm 29.6 kg/m2 13920.53 g 101 mm[Hg] 69 mm[Hg] [facility] 3 11:20:49 Social History Question Answer Notes LastModified by Organizat ion Details LastModified Time Tobacco Smoking Status Never Smoker [facility] 01/28/2023 10:33:11 What Is Your Level Of Alcohol Consumption? None Information not available 01/28/2023 If You Are , What Was Your Level Of Alcohol Consumption Prior To ? None Information not available 01/28/2023 What Is Your Level Of Caffeine Consumption? None Information not available 01/28/2023 In The 14 Days Before Symptom Onset, Have You Had Close Contact With A Laboratory-confirm ed COVID-19 While That Case Was Ill? No Information n ot available 01/28/2023 In The 14 Days Before Symptom Onset, Have You Had Close Contact With A Person Who Is Under Investigation For COVID-19 While That Person Was Ill? No Information not available 01/28/2023 Have You Been To An Area Known To Be High Risk For COVID-19? No Information not available 01/28/2023 Has Tobacco Cessation Counseling Been Provided? No Information not available 01/28/2023 Do You Or Have You Ever Used Any Other Forms Of Tobacco Or Nicotine? No Information not available 01/28/2023 Sex: Unknown Functional Status None recorded. Mental Status None recorded. Family History Relationship Description Onset Age of this Age Resolved Age Notes LastModified by Organization Details LastModified Time Mother Cyst of ovary dswayne Not available 2022 10:34:23 Maternal Grandmother Cyst of ovary dswayne Not available 2022 10:34:35 Maternal Grandfather Chronic hepatitis dswayne Not available 2022 10:34:56 Medical History Condition Response Allergies (Food, seasonal, environmental ) N Other N Breast Cancer N Drug/Latex Allergies/Reactions N Blood Transfusion N Dermatologic Disorders N Lung Disease N Defects or Inherited Disease N Breast Problem N Gestational Diabetes N Hematologic disorders N Anesthesia Complications N History of STI N Deep Vein Thrombosis N Polycystic ovary syndrome N Anxiety Disorder N Autoimmune disease N Arthritis N Infertility N Polyps N Acid Reflux (GERD) N History of abnormal pap N Cancer N Stroke N Varicosities N Neurologic/Epilepsy N Endometriosis N High Cholesterol N Headaches N Fibromyalgia N Kidney Disease N Heart Problems N Kidney or Bladder Problems N Thyroid Problems N GI Problems N Eating Disorder N Anemia N Art (IVF or FET) N Psychiatric Illness N Ovarian Cancer N Diabetes Y Pulmonary (TB, Asthma) N Hepatitis/Liver Disease N No Past Medical History N Eczema N Urinary Tract Infection N Abuse/Domestic Violence N Asthma N Trauma/Violence N Depression/ depression N Heart Disease N Pre-Eclampsia N Hypertension N Osteoporosis N Thrombophilias N Gynecological History Statement/Question Response Abnormal Pap N Sexually Active? Y On BCP's at Conception? N STIs/STDs N HPV Vaccine N Date of Last Pap Smear Sexual Problems? N Current Control Method Desired Control Method None Obstetrics History GPAL:G 2 P 0 0 3 1 Type Value Spontaneous 3 Living 1 Total 2 Past Encounters Encounter ID Performer Location Encounter Start Date Encounter Closed Date Diagnosis/Indication Diagnosis SNOMED-CT Code Diagnosis ICD10 Code [id number] I[facility] [address] [address] 01/28/2023 09:49:55 01/28/2023 11:26:01 Pre-existing type 1 diabetes mellitus in 462286529 O24.019 O36.8190 Z3A.34 [id number] TAHIRA BLANC MD [facility] [address],[place] [address] 01/28/2023 10:02:14 01/28/2023 17:59:18 Vomiting of 02367202 O21.9 Urinary tr act infection in 396735594 O23.43 Pre-existi ng type 1 diabetes mellitus in 316924662 O24.019 Gestation period, 34 weeks 78372797 Z3A.34 [id number] TAHIRA BLANC MD [facility] [address],[place] [address] 03/08/2023 10:55:24 03/08/2023 12:17:02 care 761142928 Z39.2 depression 58 598519 F53.0 Pre-existi ng type 1 diabetes mellitus in 559285001 O24.019 Pre-eclampsia 019239078 O14.15 Health Concerns Section Related Observation LastModified by Organization Detai ls LastModified Time None Recorded Concern Status LastModified by Organization Details LastModified Time None Recorded Advance Directives Directive None Recorded Payers Encounter Date Sequence Insurance Name Policy Number Policy Garcia Covered Member ID Garcia Member ID Guarantor Name 01/28/2023 1 [place] [employer] Karina Fuchs [id number] Karina Fuchs 01/28/2023 1 [place] [employer] Karina Fuchs [id number] Karina Fuchs 03/08/2023 1 [place] [employer] Karina Jef [id number] Karina Fuchs Notes Date Note Type Note Provider Name and Address Organization Details Recorded Time 01/28/2023 text/html Presents to establish OB care. Has not been seen by OBGYN since October, however has followed with Dr. Neal with Tatyana DO closely for diabetic control. EDC 03/09/23; US and echo wnl Vasovagal with laying flat, no LOC. Hx of c section; would like repeat c section. T1DM:- Diagnosed at age 12- Managed outside by Dr. Sanches (endocrinology)- Pre- regimen: insulin pump, settings unknown- Antepartum regimen: insulin pump,12-3 basal 1, 1:30, 1:33-8 basal 1.558-7p basal 17-12a basal 1, ICR 1:4- regimen: tbd from [facility]- Last dilated eye exam: 08/2022- Last EKG: has not performed- Evidence of end organ damage: elevated- echo: wnasia Was in ICU for DKA at beginning of , no further admissions.Getting nauseous every 2-3days, throwing up; zofran/reglan not working, scop patch works sometimes, no heartburn, no food triggers, TAHIRA BLANC MD [address], [place], [address], [facility] 01/28/2023 17:58:23 03/08/2023 text/html S/P RLTCS on 02/07 at 35 weeks gestation. was complicated by preeclampsia with severe features and T1DM.??They named her Astrid. ??Complications with delivery: none. Patient denies any specific problems since delivery.?? Patient overall feeling well. Patient is combo feeding without problems. Needs rx for breast pump. Has not had a period yet. No bleeding. Bowel and bladder function are normal. Patient has not been sexually active since delivery. Patient interested in contraception at this time, discussed hormonal vs nonhormonal options. ?? Starting counseling on March 16, [facility], [facility] counseling. Feeling very overwhelmed at home, feels she is not doing enough around the house. Has good support at home, her fiance is very involved. EPDS 19. TAHIRA BLANC MD [address], [place], [address], [facility] 03/08/2023 11:57:41 OBGyn Episode Ob Episode Information Episode Created Date Number of Fetuses Patient Bloodtype Patient rh Status Prepregnancy Weight lbs Domestic Partner Domestic Partner Phone Father Name Derrick Worker Status 01/29/20 23 1 O Positive 174 CLOSED Fetus Data First Name Last Name Admitted to NICU Weight (g) Sex Living Outcome Pediatric Complications Fetus ID Race Codes Race Delivery Type [id number] Repeat Problems Problem Notes Problem Name Start Date End Date Resolution Snomed Code Not e Type 1 diabetes mellitus 24174944 followed by Rita DO, last A1c 6.7%, on insulin pump with CGM; hx of DKA at beginning of , frequent nausea/vomiting Aarti Calculation AARTI Calculation Method Initial Aarti Date Initial Exam Date Initial Exam Provider Initial Ultrasound Date Last Menstrual Period Date Ultra Sound Weeks Gestation Conception by IVF Embryo Age at Transfer Date of Transfer 03/09/20 23 01/29/20 23 0 Eighteen To Twenty Week Aarti Update Ultra Sound Date Fundal Height At Umbil Quickening Date Ultra Sound Latest Weeks Gestation Final Aarti Confirmed By Final Aarti Confirmed Date Final Aarti Date Ultra Sound Latest Days Gestation 0 [email or web address] 01/28/2023 03/09/20 23 0 Pre- Flowsheet Flowsheet Date 01/28/2023 Regalado Score Blood Edema Fundus Height Fundus Units Glucose Ketones Leukocytes Nitrite Labor Signs Protein Cervic Dilation Cervic Effacement Cervic Station none Type Weight in lbs Pre/Post Dialysis Refused Weight 156.975420521691 BP Diastolic BP Location Tested BP Systolic BP Type 77 130 Fetus Heart Rate Present A 153 Fetus Movement Comments Present to establish OB care . Has not seen OBGYN since October, however has been following closely with MFM throughout . See note for details of health history. Hx of c section in G1, desires repeat CS. Will f/u with MFM regarding delivery timing. Warning signs of labor and DKA discussed with patient, who voices understanding. movement decreased, however BPP today 12/08. Kick counts discussed. Follow up with MFM scheduled for 02/01 and 02/03, return to clinic in 2 weeks. Menstrual History Last Menstrual Date Menses Monthly On Bcp Conception Prior Menses Frequency Hcg Plus Date Menarche Onset Age Genetic Screening And Infection History Question Response Note Mental Retardation/Autism false Patient's Age Will Be 35 Years Or Older At Estim ated Date of Delivery false Thalassemia (Belarusian, Turks And Caicos Islander, Mediterranean, Or Background): MCV < 80 false Neural Tube Defect (Meningomyelocele, Spina Bifi da, Or Anencephaly) false Congenital Heart Defect false Down Syndrome false Tiburcio-Sachs (eg, Orthodoxy, Cajun, Serbian-Colby) f alse Darron Disease false Sickle Cell Disease Or Trait () false Hemophilia Or Other Blood Disorders false Muscular Dystrophy false Cystic Fibrosis false Zap's Chorea false Intellectual Disability/Autism false If Yes, Was Person Tested For Fragile X? false Other Inherited Genetic Or Chromosomal Disorder false Maternal Metabolic Disorder (eg, Type 1 Diabetes , PKU) false Patient Or Baby's Father Had A Child With Defects Not Listed Above false Recurrent Loss, Or A Stillbirth false Medications (including Suppl ements, Vitamins, Herbs, OTC Drugs), Illicit/Recreational Drugs, Alcohol false If Yes, Agent(s) And Strength/Dosage false Any Other Genetic History false Live With Someone With TB Or Exposed To TB false Patient Or Partner Has History Of Genital Herpes false Rash Or Viral Illness Since Last Menstrual Perio d false History Of STD, Gonorrhea, Chlamydia, HPV, Syphi lis false Other Infection History false History of HIV false History of Hepatitis false Prior GBS-infected child false Hemoglobinopathy Or Carrier false Other Structural Defect false Recent Travel History Outside of Country false Delivery Information Delivery Date Delivery Type Labor Anesthesia Weeks Gestation Incision Type Labor Labor Length Hrs Delivered By Post Complications Tubal Sterilization Discharge Date Comments 3 35.5 Discharge Information Feeding Method Contraceptive Method Maternal HG B and HCT Levels Ob Episode Information Episode Created Date Number of Fetuses Patient Bloodtype Patient rh Status Prepregnancy Weight lbs Domestic Partner Domestic Partner Phone Father Name Derrick Worker Status 01/29/20 23 1 CLOSED Fetus Data First Name Last Name Admitted to NICU Weight (g) Sex Living Outcome Pediatric Complications Fetus ID Race Codes Race Delivery Type [id number] Primary Aarti Calculation AARTI Calculation Method Initial Aarti [...] Complications Tubal Sterilization Discharge Date Comments 7 Aria Discharge Information Feeding Method Contraceptive Method Maternal HG B and HCT Levels
[2024-04-13 13:30] VITALS: BP 149/83; PULSE 104; RESP 18; TEMP 36.3; O2SAT 99
--- NOTE | 2024-04-13 14:20 | ED_ITS ---
HPI - Recheck/Abnormal Lab/Rx General Chief Complaint: Recheck/Abnormal Lab/Rx Stated Complaint: possibly Time Seen by Provider: 04/13/24 13:59 Source: patient Mode of arrival: ambulatory Limitations: no limitations History of Present Illness HPI narrative: Patient with Type 1 diabetes mellitus presents with nausea and vomiting without abdominal pain. She saw her PCP for this who sent her to the ED because she had a positve urine test in the office. Patient is a female (not including today's test) whose LMP is unknown but in January. She had been seen in the ED and was told her beta HCG was low. On 03/10/24 she underwent US but no IUP was seen at that time, only a gestational sac and pole. She had heavy vaginal bleeding 03/17/24 and 03/21/24 including passing several clots and when she called [facility] clinic about this, she was told she miscarried, estimated GA was 6w2d at that time. IN the past 24 hours she has had approximately 10 episodes of NBNB emesis and this occurs weekly for the past 2 months. Her previous ObGyn was through [facility]. SHe has not been taking anything for her symptoms. She previously required D&C x2 for previous miscarriages. LBM was this morning, no diarrhea, constipation, or blood. Related Data Home Medications ?Medication ?Instructions ?Recorded ?Confirmed ?Last Taken ?Type insulin lispro 100 unit/mL See Rx Instructions .Route .COMPLEX 02/28/24 02/28/24 Unknown History subcutaneous solution Allergies Allergy/AdvReac Type Severity Reaction Status Date / Time No Known Allergies Allergy Unknown Verified 04/13/24 15:12 [facility] Past Medical History Medical History History of premature delivery, currently 35w5d Type 1 diabetes mellitus Gastric ulcer On recent EGD at [facility] Anxiety Finger fracture Abdominal pain Chronic abdominal pain Surgical History Surgical History Hx of dilation and curettage x2 including 2019 following missed ab Hx of section 2017 Hx of tonsillectomy Family History Family History Mother Family history of anemia Father Unknown family medical history Other Family history of arthritis Family history of hepatitis Family history of liver disease Social History Social History Social History: She lives at home with her 7-year-old daughter and her 1-year-old. She denies any alcohol tobacco or illicit substance use. she is engaged to be . Code status: Full code Surrogate decision maker: Karen Fuchs (mother) Smoking status: Never smoker Alcohol intake: never Substance use: never Substance use type: does not use Do You Feel Safe in your Home?: Yes Lack of Transportation: No Lack of Food: Never True Current Housing: I Have Housing Concerned About Future Housing: No Difficulty Paying Gas/Electric Bills: No Difficulty Paying for Meds: No Currently Unemployed: No Education: Bachelor's Degree Difficulty w/ Childcare or Family Care: No Spiritual care concerns: No Agree to blood products: Yes Exam 2 Narrative: GENERAL: Well-appearing, well-nourished, and in no acute distress. HEAD: Normocephalic, atraumatic. EYES: Non injected, non icteric ENT: Nares clear, no rhinorrhea or epistaxis. Moist mucous membranes NECK: Supple. CHEST: Speaking in full sentences. No respiratory distress. HEART: Tachycardic rate and rhythm. . ABDOMEN: Soft, nondistended. EXTREMITIES: Normal range of motion. No lower extremity edema. SKIN: Warm, dry, no rash. NEURO: No focal deficits. Alert and oriented x3. PSYCH: Normal mood and affect. Course Vital Signs Vital signs: Vital Signs Temperature 97.3 F L 04/13/24 13:30 Pulse Rate 104 H 04/13/24 13:30 Respiratory Rate 18 04/13/24 13:30 Blood Pressure 149/83 H 04/13/24 13:30 Pulse Oximetry 99 04/13/24 13:30 Oxygen Delivery Room Air 04/13/24 13:30 Temperature 97.3 F L 04/13/24 13:30 Pulse Rate 80 04/13/24 18:51 Respiratory Rate 20 04/13/24 18:51 Blood Pressure 116/82 04/13/24 18:51 Pulse Oximetry 99 04/13/24 18:51 Oxygen Delivery Room Air 04/13/24 13:30 MDM - Recheck/Abnormal Lab/Rx MDM Narrative Medical decision making narrative: Patient presents from PCP's office. She has been experiencing persistent N/V for the past 2 months, occurring weekly. No associated abdominal pain. At PCP's office, she had a postivie urine test. Patient states she was recently but had been told she had miscarried a 6w2d fetus on approximately 03/21/24 due to the degree of heavy menstrual bleeding with clots. LMP was in January, unknown exact date. In the emergency department she is afebrile with vital signs that show mild tachycardia and mild hypertension. Hyperglycemia without anion gap or acidosis. Patient's hypernatremia only mildly corrects (partial pseudohyponatremia) in the setting of hyperglycemia. Beta hcg is markedly elevated, higher than would be expected for a very early and, if had miscarried in mid March, would have expected it to have returned to zero at this time. US does show an IUP approximately 10w3d by AARTI 11/06/24. In discussion with patient, it seems she was told by her [facility] clinic that she had miscarried based on bleeding but no confirmatory US had been performed nor pelvic exam. For this reason, patient is still with the she thought she lost. New Gs and Ps are : G6 P 1132. She is feeling better and has successfully p.o. challenged after receiving Zofran. The patient was discharged home in stable condition. She is given strict return precautions. Patient will follow-up with icu clerk, either [facility] or [facility] (where she had previously gone) or is also given a referral for ObGyn manager provider relations Dr Bunch. . Patient verifies understanding of her work up at this time. She is given prescription for doxylamine/pyridoxine 10mg/10mg and vitamins. Given return precautions. Differential Diagnosis Differential diagnosis: Likely other (; molar ; abnormal hormone response) Lab Data Attestation: I reviewed the patient's lab results. 04/13/24 15:39 04/13/24 15:39 Labs: Lab Results 04/13/24 04/13/24 Range/Units 14:34 15:39 WBC 7.3 (4.5-10.0) K/mm3 RBC 4.26 (4.2-5.4) M/mm3 Hgb 13.0 (12.0-15.0) g/dL Hct 37.7 (37.0-47.0) % MCV 88.5 (80-100) fl MCH 30.5 (26-34) pg MCHC 34.5 (32-36) g/dl RDW 13.5 (11.5-14.5) % Plt Count 356 (150-375) k/mm3 MPV 9.0 (7.4-10.4) fl Immature Gran % (Auto) 0.8 H (0-0.5) % Neut % (Auto) 68.7 (45.5-73.1) % Lymph % (Auto) 22.0 (18.3-44.2) % [place] % (Auto) 7.9 (2.6-8.5) % Eos % (Auto) 0.3 (0-4.4) % Baso % (Auto) 0.3 (0.2-1.2) % Lymph # (Auto) 1.61 (0.9-3.2) K/mm3 [place] # (Auto) 0.6 (0.1-0.6) K/mm3 Eos # (Auto) 0.0 (0-0.3) K/mm3 Baso # (Auto) 0.0 (0.0-0.1) K/mm3 Abs Immat Gran (auto) 0.06 H (0.00-0.031) K/mm3 Absolute Neuts (auto) 5.0 (1.3-6.7) K/mm3 Absolute Nucleated RBC 0.000 (0.0-0.012) K/mm3 Nucleated RBC % 0.0 (0.0-0.2) % Sodium 131 L (137-145) mmol/L Potassium 3.9 (3.4-5.0) mmol/L Chloride 101 (98-107) mmol/L Carbon Dioxide 26 (22-30) mmol/L Anion Gap 4 (4-12) mmol/L BUN 6 L (7-17) mg/dL Creatinine 0.40 L (0.7-1.0) mg/dL Estim Creat Clear Calc 161 ml/min Estimated GFR > 60 (59 - ) Glucose 139 H (65-110) mg/dL Calcium 9.2 (8.4-10.2) mg/dL Magnesium 2.0 (1.6-2.3) mg/dL Total Bilirubin 0.5 (0.2-1.3) mg/dL AST 18 (14-36) U/L ALT 10 (6-35) U/L Alkaline Phosphatase 72 (38-126) U/L Total Protein 7.0 (6.3-8.2) g/dL Albumin 3.8 (3.5-5.1) g/dL Lipase 17 L (23-300) U/L Beta HCG, Quant 224471.00 mIU/ML Influenza A (RT-PCR) Negative (Negative) Influenza B (RT-PCR) Negative (Negative) SARS-CoV-2 RNA (RT-PCR) Negative (Negative) Imaging Data Radiologist's impression: Impressions Ultrasound 04/13/24 17:48 IMPRESSION: 1. Single living intrauterine gestation with estimated date of delivery of 11/06/2024. Discharge Plan Discharge Clinical Impression: Nausea and vomiting during prior to 22 weeks gestation, Hyperglycemia due to diabetes mellitus, Hyponatremia, First trimester Patient Disposition: Home, Self-Care Condition: Stable Instructions: Antibiotic Form, Nausea and Vomiting in (ED), Hyponatremia (ED), Managing Diabetes During Sick Days (ED), Diabetic Hyperglycemia (ED), at 7 to 10 Weeks (ED) Additional Instructions: You are with an estimated date of delivery of 11/06/2024. You can use the doxylamine/pyridoxine for nausea and vomiting. vitamins have been prescribed. Follow up with the Ob Gyne of your choice. If you need a referral the name of 1 is provided below. Return to the emergency department with any new worsening or unmanaged symptoms. Patient Language: [place]orese Prescriptions: New doxylamine-pyridoxine (vit B6) 10-10 mg tablet,delayed release (DR/EC) 1 tablet PO DAILY Qty: 20 0RF Classic 28 mg iron- 800 mcg tablet 1 tablet PO DAILY 30 Days Qty: 30 0RF No Action insulin lispro 100 unit/mL solution See Rx Instructions .ROUTE .COMPLEX Rx Instructions: insulin pump; basal rate of 8 doxylamine-pyridoxine (vit B6) 20-20 mg tablet,IR,delayed rel,biphasic 1 tablet PO HS Qty: 10 0RF promethazine 12.5 mg tablet 12.5 mg PO TID PRN (Reason: nausea and vomiting) Qty: 4 0RF ondansetron 4 mg tablet,disintegrating 4 mg PO Q8H Qty: 14 0RF Follow-up/Referrals: Bowen Bunch MD [Physician] - (OBGYN) Harley Jauregui MD [Primary Care Provider] - Stand Alone Forms: Work/School Release IP Time of Disposition: 18:28
[2024-04-13 14:42] VITALS: BP 114/83; PULSE 97; RESP 17; O2SAT 100
[2024-04-13 15:26] LABS: Influenza A QL RT-PCR Negative (Negative); Influenza B QL RT-PCR Negative (Negative); SARS-CoV-2 RNA PCR Negative (Negative)
[2024-04-13 15:44] LABS: Basophils Percent Auto 0.3 % (0.2-1.2); Eosinophils Percent Auto 0.3 % (0-4.4); Hematocrit 37.7 % (37.0-47.0); Immature Granulocyte Absolute 0.06 K/mm3 (0.00-0.031); Immature Granulocyte Percent A 0.8 % (0-0.5); Lymphocytes Absolute Auto 1.61 K/mm3 (0.9-3.2); Mean Corpuscular HGB Conc 34.5 g/dl (32-36); Mean Corpuscular Hemoglobin 30.5 pg (26-34); Mean Corpuscular Volume 88.5 fl (80-100); Monocytes Absolute Auto 0.6 K/mm3 (0.1-0.6); Monocytes Percent Auto 7.9 % (2.6-8.5); Neutrophils Percent Auto 68.7 % (45.5-73.1); Platelet Count Result 356 k/mm3 (150-375); Red Blood Count 4.26 M/mm3 (4.2-5.4); Red Cell Distribution Width 13.5 % (11.5-14.5); White Blood Count 7.3 K/mm3 (4.5-10.0)
[2024-04-13 16:11] LABS: Alanine Aminotransferase 10 U/L (6-35); Albumin Level 3.8 g/dL (3.5-5.1); Alkaline Phosphatase 72 U/L (38-126); Anion Gap 4 mmol/L (4-12); Aspartate Amino Transferase 18 U/L (14-36); Bilirubin,Total 0.5 mg/dL (0.2-1.3); Blood Urea Nitrogen 6 mg/dL (7-17); Calcium 9.2 mg/dL (8.4-10.2); Carbon Dioxide 26 mmol/L (22-30); Chloride 101 mmol/L (98-107); Estimated CRCL calculation 161 ml/min; Estimated Glomerular Filt Rate > 60; Glucose 139 mg/dL (65-110); Lipase 17 U/L (23-300); Potassium 3.9 mmol/L (3.4-5.0); Sodium 131 mmol/L (137-145)
[2024-04-13 16:59] VITALS: BP 111/74; PULSE 88; RESP 15; O2SAT 100
[2024-04-13 18:51] VITALS: BP 116/82; PULSE 80; RESP 20; O2SAT 99
== END 2024-04-13 18:53 | disposition home or self-care (01) ==
PROVIDERS: Emergency Provider Student in an Organized Health Care Education/Training Program; PCP Emergency Medicine
DX: O21.9 Vomiting of pregnancy, unspecified (principal); O24.011 Pre-existing type 1 diabetes mellitus, in pregnancy, first trimester; E10.65 Type 1 diabetes mellitus with hyperglycemia; O99.281 Endocrine, nutritional and metabolic diseases complicating pregnancy, first trimester; E87.1 Hypo-osmolality and hyponatremia; Z20.822 Contact with and (suspected) exposure to COVID-19; Z3A.10 10 weeks gestation of pregnancy; Z79.4 Long term (current) use of insulin
CPT/HCPCS: 36415; 76801; 80053; 83690; 83735; 84702; 85025; 87636; 99284

== ENCOUNTER 2024-05-03 20:06 | Emergency (ER) | payer BC, SELFPAY ==
[2024-05-03 20:13] VITALS: BP 136/74; PULSE 114; RESP 20; TEMP 36.3; O2SAT 100
--- NOTE | 2024-05-03 22:40 | ED_ITS ---
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 Reports she is currently about 13 weeks . Started to have bleeding and cramping yesterday. She has had ultrasound this and has a confirmed intrauterine . She has had a couple of visits with an OB provider, but is transferring her care to [facility] due to high risk as she has type 1 diabetes. Related Data Home Medications ?Medication ?Instructions ?Recorded ?Confirmed ?Last Taken ?Type insulin lispro 100 unit/mL See Rx Instructions .Route .COMPLEX 02/28/24 02/28/24 Unknown History subcutaneous solution Allergies Allergy/AdvReac Type Severity Reaction Status Date / Time No Known Allergies Allergy Unknown Verified 05/03/24 20:22 Review of Systems 2 Review of Systems: CONSTITUTIONAL: Denies fever GASTROINTESTINAL: Reports pelvic cramping GENITOURINARY: Reports vaginal bleeding All systems reviewed & are unremarkable except as noted in HPI and below PMFSH Past Medical History Medical History History of premature delivery, currently 35w5d Type 1 diabetes mellitus Gastric ulcer On recent EGD at [facility] Anxiety Finger fracture Abdominal pain Chronic abdominal pain Surgical History Surgical History Hx of dilation and curettage x2 including 2019 following missed ab Hx of section 2017 Hx of tonsillectomy Family History Family History Mother Family history of anemia Father Unknown family medical history Other Family history of arthritis Family history of hepatitis Family history of liver disease Social History Social History Social History: She lives at home with her 7-year-old daughter and her 1-year-old. She denies any alcohol tobacco or illicit substance use. she is engaged to be . Code status: Full code Surrogate decision maker: Karen Fuchs (mother) Smoking status: Never smoker Alcohol intake: never Substance use: never Substance use type: does not use Do You Feel Safe in your Home?: Yes Lack of Transportation: No Lack of Food: Never True Current Housing: I Have Housing Concerned About Future Housing: No Difficulty Paying Gas/Electric Bills: No Difficulty Paying for Meds: No Currently Unemployed: No Education: Bachelor's Degree Difficulty w/ Childcare or Family Care: No Spiritual care concerns: No Agree to blood products: Yes Exam 2 Narrative: GENERAL: Well-appearing, well-nourished, and in no acute distress. HEAD: Normocephalic, atraumatic. EYES: EOMI. CHEST: Clear to auscultation. No respiratory distress. No wheezes rales or rhonchi HEART: Regular rate and rhythm. No murmur heard. Normal peripheral pulses. ABDOMEN: Soft, nontender, nondistended, normal active bowel sounds. EXTREMITIES: Normal range of motion. No edema. SKIN: Warm, dry, no rash. NEURO: No focal deficits. Alert and oriented x3. PSYCH: Normal mood and affect PELVIC: Normal external genitalia. Small amount of dark red blood in the vaginal vault Course Course Emergency Course: Patient and family updated on workup and agree with plan of care Vital Signs Vital signs: Vital Signs Temperature 97.3 F L 05/03/24 20:13 Pulse Rate 114 H 05/03/24 20:13 Respiratory Rate 20 05/03/24 20:13 Blood Pressure 136/74 05/03/24 20:13 Pulse Oximetry 100 05/03/24 20:13 Oxygen Delivery Room Air 05/03/24 20:13 Temperature 97.3 F L 05/03/24 20:13 Pulse Rate 88 05/03/24 23:33 Respiratory Rate 14 05/03/24 23:33 Blood Pressure 119/77 05/03/24 23:33 Pulse Oximetry 100 05/03/24 23:33 Oxygen Delivery Room Air 05/03/24 20:13 MDM - OB/Uterine Contractions MDM Narrative Medical decision making narrative: Patient presents to the emergency department for vaginal bleeding and cramping. Patient is currently about 13 weeks . Has had ultrasound which shows an intrauterine . No concerning amount of bleeding on exam. She was mildly tachycardic upon arrival, this normalized with IV fluids. CBC shows mild normocytic anemia hemoglobin of 11.4. Metabolic panel without concerning findings. Quantitative beta-hCG 15,364. Patient is O positive. Patient and family updated on workup and agree with plan of care. Instructed to have close follow-up with her OB. She was given warnings to return to the ER Differential Diagnosis Differential diagnosis: Likely other (Threatened miscarriage, miscarriage) Lab Data Attestation: I reviewed the patient's lab results. 05/03/24 23:21 05/03/24 23:21 Labs: Lab Results 05/03/24 Range/Units 23:21 WBC 12.0 H (4.5-10.0) K/mm3 RBC 3.80 L (4.2-5.4) M/mm3 Hgb 11.4 L (12.0-15.0) g/dL Hct 33.0 L (37.0-47.0) % MCV 86.8 (80-100) fl MCH 30.0 (26-34) pg MCHC 34.5 (32-36) g/dl RDW 13.3 (11.5-14.5) % Plt Count 392 H (150-375) k/mm3 MPV 8.7 (7.4-10.4) fl Immature Gran % (Auto) 1.3 H (0-0.5) % Neut % (Auto) 68.7 (45.5-73.1) % Lymph % (Auto) 20.8 (18.3-44.2) % [place] % (Auto) 7.8 (2.6-8.5) % Eos % (Auto) 1.0 (0-4.4) % Baso % (Auto) 0.4 (0.2-1.2) % Lymph # (Auto) 2.50 (0.9-3.2) K/mm3 [place] # (Auto) 0.9 H (0.1-0.6) K/mm3 Eos # (Auto) 0.1 (0-0.3) K/mm3 Baso # (Auto) 0.1 (0.0-0.1) K/mm3 Abs Immat Gran (auto) 0.15 H (0.00-0.031) K/mm3 Absolute Neuts (auto) 8.3 H (1.3-6.7) K/mm3 Absolute Nucleated RBC 0.000 (0.0-0.012) K/mm3 Nucleated RBC % 0.0 (0.0-0.2) % PT 13.0 (11.1-14.7) Seconds INR 0.9 APTT 32.5 (22.3-36.8) Seconds Sodium 133 L (137-145) mmol/L Potassium 3.8 (3.4-5.0) mmol/L Chloride 105 (98-107) mmol/L Carbon Dioxide 24 (22-30) mmol/L Anion Gap 4 (4-12) mmol/L BUN 12 D (7-17) mg/dL Creatinine 0.40 L (0.7-1.0) mg/dL Estim Creat Clear Calc 161 ml/min Estimated GFR > 60 (59 - ) Glucose 84 (65-110) mg/dL Calcium 9.2 (8.4-10.2) mg/dL Total Bilirubin 0.3 (0.2-1.3) mg/dL AST 16 (14-36) U/L ALT 9 (6-35) U/L Alkaline Phosphatase 86 (38-126) U/L Total Protein 7.0 (6.3-8.2) g/dL Albumin 3.7 (3.5-5.1) g/dL Beta HCG, Quant 70732.00 mIU/ML Blood Type O Positive Antibody Screen Pending Screen TNP Doses of RhIg Required Pending Critical Care Time Critical Care Time Critical Care Time: No Discharge Plan Discharge Clinical Impression: Threatened miscarriage Anemia Qualifiers: Anemia type: unspecified type Qualified Code(s): D64.9 - Anemia, unspecified Patient Disposition: Home, Self-Care Condition: Stable Instructions: Threatened Miscarriage (ED), Anemia (ED) Additional Instructions: Return to the ER if you experience fever, chest pain, shortness of breath, abdominal pain with nausea and vomiting, you are unable to keep down liquids or solids, you are soaking through a pad/hour, you pass out, or any other symptoms that are concerning to you Pelvic rest, no tampons or sex Follow up with your OB Patient Language: Panamanian Prescriptions: No Action insulin lispro 100 unit/mL solution See Rx Instructions .ROUTE .COMPLEX Rx Instructions: insulin pump; basal rate of 8 doxylamine-pyridoxine (vit B6) 20-20 mg tablet,IR,delayed rel,biphasic 1 tablet PO HS Qty: 10 0RF promethazine 12.5 mg tablet 12.5 mg PO TID PRN (Reason: nausea and vomiting) Qty: 4 0RF ondansetron 4 mg tablet,disintegrating 4 mg PO Q8H Qty: 14 0RF doxylamine-pyridoxine (vit B6) 10-10 mg tablet,delayed release (DR/EC) 1 tablet PO DAILY Qty: 20 0RF Classic 28 mg iron- 800 mcg tablet 1 tablet PO DAILY 30 Days Qty: 30 0RF Follow-up/Referrals: Harley Jauregui MD [Primary Care Provider] -
[2024-05-03 23:26] LABS: Basophils Absolute Auto 0.1 K/mm3 (0.0-0.1); Basophils Percent Auto 0.4 % (0.2-1.2); Eosinophils Absolute Auto 0.1 K/mm3 (0-0.3); Hemoglobin 11.4 g/dL (12.0-15.0); Immature Granulocyte Absolute 0.15 K/mm3 (0.00-0.031); Immature Granulocyte Percent A 1.3 % (0-0.5); Lymphocytes Percent Auto 20.8 % (18.3-44.2); Mean Corpuscular HGB Conc 34.5 g/dl (32-36); Mean Corpuscular Volume 86.8 fl (80-100); Mean Platelet Volume 8.7 fl (7.4-10.4); Monocytes Absolute Auto 0.9 K/mm3 (0.1-0.6); Monocytes Percent Auto 7.8 % (2.6-8.5); Neutrophils Absolute Auto 8.3 K/mm3 (1.3-6.7); Neutrophils Percent Auto 68.7 % (45.5-73.1); Platelet Count Result 392 k/mm3 (150-375); Red Cell Distribution Width 13.3 % (11.5-14.5)
[2024-05-03] MEDS: SODIUM CHLORIDE 0.9% IV 1,000 ML 999 ML IV CONT (23:30)
[2024-05-03 23:32] VITALS: O2SAT 98
[2024-05-03 23:33] VITALS: BP 119/77; PULSE 88; RESP 14; O2SAT 100
[2024-05-03 23:34] VITALS: O2SAT 100
[2024-05-03 23:38] LABS: Alanine Aminotransferase 9 U/L (6-35); Albumin Level 3.7 g/dL (3.5-5.1); Alkaline Phosphatase 86 U/L (38-126); Anion Gap 4 mmol/L (4-12); Aspartate Amino Transferase 16 U/L (14-36); Bilirubin,Total 0.3 mg/dL (0.2-1.3); Blood Urea Nitrogen 12 mg/dL (7-17); Calcium 9.2 mg/dL (8.4-10.2); Carbon Dioxide 24 mmol/L (22-30); Chloride 105 mmol/L (98-107); Estimated CRCL calculation 161 ml/min; Estimated Glomerular Filt Rate > 60; Glucose 84 mg/dL (65-110); Potassium 3.8 mmol/L (3.4-5.0); Sodium 133 mmol/L (137-145)
[2024-05-03 23:45] VITALS: O2SAT 99
[2024-05-03 23:46] VITALS: BP 121/66; O2SAT 100
[2024-05-03 23:58] LABS: INR 0.9
[2024-05-03 23:59] LABS: Partial Thromboplastin Time 32.5 Seconds (22.3-36.8)
[2024-05-04] VITALS: O2SAT 99
[2024-05-04 00:15] VITALS: O2SAT 100
[2024-05-04 00:30] VITALS: BP 118/68; O2SAT 100
[2024-05-04 00:31] VITALS: BP 112/66; PULSE 83; RESP 14; O2SAT 100
[2024-05-04 01:08] VITALS: BP 112/66; PULSE 83; RESP 14; O2SAT 100
--- OUTSIDE RECORDS SUMMARY | 2024-05-10 18:08 | XMS_ITS | Encounter Summary ---
Author Organization [facility] Address [address] [place] [address]. [place] [address] [place] [address] Care Team Providers Care Portable Trackman Name Role Phone Unavailable Primary Care Provider Unavailabl e Encounter Details Date Type Department Care Team (Late st Contact Info) Description 01/07/2017 Orders Only ANY CONVERSION [place], [place] [id number] , Generic Conversion, Social History Tobacco Use Types Packs/Day Years Used Date Smoking Tobacco: Never Assessed Comments Unknown Sex and Gender Information Value Date Recorded Sex Assigned at Not on file Legal Sex Female 11:28 PM CDT Gender Identity Not on file Sexual Orientation Not on file documented as of this encounter Plan of Treatment Not on file documented as of this encounter Procedures Procedure Name Priority Date/Time Associated Diagnosis Comments BETA-HYDROXYBUTYRAT E STAT 01/07/2017 1:54 PM CDT documented in this encounter Results * (ABNORMAL) BETA-HYDROXYBUTYRATE (01/07/2017 1:54 PM CDT) BETA-HYDROXYBU TYRATE 6.2(H) 0.0 - 0.3 MMOL/L 01/07/2017 1:08 PM CDT [facility] SERUM OR PLASMA SPECIMEN / Unknown 01/07/2017 1:54 PM CDT 01/07/2017 12:58 PM CDT us Generic Conversion Md [facility] Final R esult [facility] [address] [place] [address], [id number] documented in this encounter Visit Diagnoses Not on filedocumented in this encounter
--- OUTSIDE RECORDS SUMMARY | 2024-05-10 18:08 | XMS_ITS | Encounter Summary ---
Author Organization [facility] Address [address] [place] [address]. [place] [address] [place] [address] Care Team Providers Care Renovation Plant Supervisor Name Role Phone Unavailable Primary Care Provider Unavailabl e Encounter Details Date Type Department Care Team (Latest Contact Info) Description 05/03/2017 Abstract [facility] Social History Tobacco Use Types Packs/Day Years Used Date Smoking Tobacco: Never Assessed Comments Unknown Sex and Gender Information Value Date Recorded Sex Assigned at Not on file Legal Sex Female 11:28 PM CDT Gender Identity Not on file Sexual Orientation Not on file documented as of this encounter Plan of Treatment Not on file documented as of this encounter Visit Diagnoses Not on filedocumented in this encounter
--- OUTSIDE RECORDS SUMMARY | 2024-05-10 18:08 | XMS_ITS | Encounter Summary ---
Author Organization [facility] Address [address] [place] [address]. [place] [address] [place] [address] Care Team Providers Care Maid Cleaning Cooking Name Role Phone EmeraldCarrie moreland Josette BETTS Primary Care Provider Encounter Details Date Type Department Care Team (Latest Contact Info) Description 04/22/2020 11:00 AM PROJECT MANAGEMENT ANALYST - 04/22/2020 11:59 PM PROJECT MANAGEMENT ANALYST Hospital Encounter [facility] [address] [place] [address] Ector Mayfield MD [address] [place] [address] Discharge Disposition: Home or Self Care (Routine Discharge) Social History Tobacco Use Types Packs/Day Years Used Date Smoking Tobacco: Never Smokeless Tobacco: Never Alcohol Use Standard Drinks/Week Comments Not Currently 0 (1 standard drink = 0.6 oz pur e alcohol) Comments No Sex and Gender Information Value Date Recorded Sex Assigned at Not on file Legal Sex Female 11:28 PM CDT Gender Identity Not on file Sexual Orientation Not on file COVID-19 Exposure Response Date Recorded In the last month, have you been in contact with someone who was confirmed or suspected to have Coronavirus / COVID-19? No / Unsure 04/22/2020 11:06 AM PROJECT MANAGEMENT ANALYST documented as of this encounter Functional Status * RETIRED Are you deaf or do you have serious difficulty hearing Answer Date of Assessment Author Status No 06/25/2019 6:34 AM PROJECT MANAGEMENT ANALYST Activ e * RETIRED Are you blind or do you have serious difficulty seeing, even when wearing glasses? Answer Date of Assessment Author Status No 06/25/2019 6:34 AM PROJECT MANAGEMENT ANALYST Activ e * Do you have serious difficulty walking or climbing stairs? Answer Date of Assessment Author Status No 06/25/2019 6:34 AM Obdulia Rey RN Active * Do you have difficulty dressing or bathing? Answer Date of Assessment Author Status No 06/25/2019 6:34 AM Obdulia Rey RN Active * Because of a physical, mental, or emotional condition, do you have difficulty doing errands alone such as visiting a doctor's office or shopping? Answer Date of Assessment Author Status No 06/25/2019 6:34 AM Obdulia Rey RN Active documented as of this encounter Mental Status * Because of a physical, mental, or emotional condition, do you have serious difficulty concentrating, remembering, or making decisions? Answer Entry Date Author Status No 06/25/2019 6:34 AM Obdulia Rey RN Active documented in this encounter Medications at Time of Discharge BASAGLAR KWIKPEN 100 UNIT/ML injection (PEN)Indications :Diabetes Mellitus Inject 10 Units into the skin nightly at bedtime. Indications: Diabetes 11 12/27/2018 5 ibuprofen 600 MG tablet Take 1 tablet (600 mg total) by mouth every 6 (six) hours as needed for Pain. 20 tablet 04/24/2020 1 insulin lispro, 1 Unit Dial, (HUMALOG KWIKPEN) 100 UNIT/ML injection (PEN)Indications :Diabetes Mellitus Inject into the skin 3 (three) times daily. Indications: Diabetes Insulin - to- carbohydrate ratio 1-8 carbs every meal 1 documented as of this encounter Plan of Treatment Not on file documented as of this encounter Procedures Procedure Name Priority Date/Time Associated Diagnosis Comments CORONAVIRUS (COVID 19) PCR Routine 04/22/2020 11:21 AM PROJECT MANAGEMENT ANALYST documented in this encounter Results * CORONAVIRUS (COVID 19) PCR (04/22/2020 11:21 AM PROJECT MANAGEMENT ANALYST) CORONAVIRUS SARS COV 2 PCR (RESP) NEGATIVE NEGATIVE 04/23/2020 3:31 PM PROJECT MANAGEMENT ANALYST [facility] Comment: NEGATIVE RESULTS DO NOT PRECLUDE SARS-CoV-2 INFECTION AND SHOULD NOT BE USED THE SOLE BASIS FOR PATIENT MANAGEMENT DECISIONS. NEGATIVE RESULTS MUST BE COMBINED WITH CLINICAL OBSERVATIONS, PATIENT HISTORY, AND EPIDEMIOLOGICAL INFORMATION. THE SARS-CoV-2 TEST HAS BEEN AUTHORIZED BY THE FDA UNDER AN EUA FOR USE BY AUTHORIZED LABORATORIES. FIRST TEST NO 04/22/2020 11:10 AM PROJECT MANAGEMENT ANALYST [facility] EMPLOYED IN HEALTHCARE NO 04/22/2020 11:10 AM PROJECT MANAGEMENT ANALYST [facility] SYMPTOMATIC DEFINED BY CDC NO 04/22/2020 11:10 AM PROJECT MANAGEMENT ANALYST [facility] HOSPITALIZATION STATUS NO 04/22/2020 11:10 AM PROJECT MANAGEMENT ANALYST [facility] PATIENT IN ICU NO 04/22/2020 11:10 AM PROJECT MANAGEMENT ANALYST [facility] RESIDENT OF [facility] NO 04/22/2020 11:10 AM PROJECT MANAGEMENT ANALYST [facility] 04/22/2020 11:2 1 AM PROJECT MANAGEMENT ANALYST [facility] Josef Mayfield MD MICROBIOLOGY - GENERAL ORD ERABLES Final Result [facility] [address] [place] [address], [place] [phone] [facility] [address] [place] [address], [place] [phone] documented in this encounter Visit Diagnoses Not on filedocumented in this encounter Additional Health Concerns Infection Onset Date Last Indicated Resolved Time COVID-19 Rule Out 04/16/2020 04/22/2020 04/23/2020 3:31 PM PROJECT MANAGEMENT ANALYST documented as of this encounter Care Teams Maid Cleaning Cooking Relationship Specialty Start Date End Date Carrie Joseph PA-C PCP - General PHYSICIAN CORRESPONDENCE DICTATOR 01/11/19 documented as of this encounter
--- OUTSIDE RECORDS SUMMARY | 2024-05-10 18:08 | XMS_ITS | Encounter Summary ---
Author Organization [facility] Address [address] [place] [address]. [place] [address] [place] [address] Care Team Providers Care Mill Operator Head Name Role Phone Unavailable Primary Care Provider Unavailabl e Reason for Visit * Reason Comments Ultrasound (SCAN) Encounter Details Date Type Department Care Team ([facility] Contact Info) Description 10/29/2018 Scan HEALTH INFO [facility] Scanned, Documents Ultrasound (SCAN) Social History Tobacco Use Types Packs/Day Years [...] Procedure Name Priority Date/Time Associated Diagnosis Comments ULTRASOUND GENERIC (SCAN ORDER) Routine 10/29/2018 documented in this encounter Results * ULTRASOUND (10/29/2018) Anatomical Region Laterality Modality Other us Documents Scanned SCANNING Edited Result - Final documented in this encounter Visit Diagnoses Not on filedocumented in this encounter
--- OUTSIDE RECORDS SUMMARY | 2024-05-10 18:08 | XMS_ITS | Encounter Summary ---
Author Organization [facility] Address [address] [place] [address]. [place] [address] [place] [address] Care Team Providers Care Flight Surveyor Name Role Phone Jake Carrie Finch PA-C Primary Care Provider Encounter Details Date Type Department Care Team (Latest Contact Info) Description 04/22/2020 Travel Social History Tobacco Use Types Packs/Day Years [...] COVID-19? No / Unsure 04/22/2020 11:06 AM SLAUGHTERER RELIGIOUS RITUAL documented as of this encounter Functional Status * RETIRED Are you deaf or do you have serious difficulty hearing Answer Date of Assessment Author Status No 06/25/2019 6:34 AM SLAUGHTERER RELIGIOUS RITUAL Activ e * RETIRED Are you blind or do you have serious difficulty seeing, even when wearing glasses? Answer Date of Assessment Author Status No 06/25/2019 6:34 AM SLAUGHTERER RELIGIOUS RITUAL Activ e * Do you have serious difficulty walking or climbing stairs? Answer Date of Assessment Author Status No 06/25/2019 6:34 AM SLAUGHTERER RELIGIOUS RITUAL Obdulia Guerrier RN Active * Do you have difficulty [...] Rey RN Active documented in this encounter Plan of Treatment Not on file documented as of this encounter Visit Diagnoses Not on filedocumented in this encounter Additional Health Concerns Infection Onset Date Last Indicated Resolved Time COVID-19 Rule Out 04/16/2020 04/22/2020 04/23/2020 3:31 PM SLAUGHTERER RELIGIOUS RITUAL documented as of this encounter Care Teams Flight Surveyor Relationship Specialty Start Date End Date Carrie Joseph PA-C PCP - General PHYSICIAN AVIONICS TEST TECHNICIAN 01/11/19 documented as of this encounter
--- OUTSIDE RECORDS SUMMARY | 2024-05-10 18:08 | XMS_ITS | Encounter Summary ---
Author Organization [facility] Address [address] [place] [address]. [place] [address] [place] [address] Care Team Providers Care Adjunct Faculty For Medical Terminology Name Role Phone Jake Carrie Finch PA-C Primary Care Provider Encounter Details Date Type Department Care Team (Latest Contact Info) Description 06/25/2019 Travel Social History Tobacco Use Types Packs/Day Years Used Date Smoking Tobacco: Never Smokeless Tobacco: Never Alcohol Use Standard Drinks/Week Comments Yes 0 (1 standard drink = 0.6 oz pur e alcohol) Comments No Sex and Gender Information Value Date Recorded Sex Assigned at Not on file Legal Sex Female 11:28 PM CDT Gender Identity Not on file Sexual Orientation Not on file documented as of this encounter Functional Status * Question Answer Date of Assessment Author Status Do you have serious difficul ty walking or climbing stairs? No 06/25/2019 6:34 AM Obdulia Rey RN Active * Question Answer Date of Assessment Author Status Do you have difficulty dressing or bathing? No 06/25/2019 6:34 AM Obdulia Rey RN Ac tive Because of a physical, menta l, or emotional condition, do you have difficulty doing errands alone such as visiting a doctor's office or shopping? No 06/25/2019 6:34 AM Obdulia Rey RN Active * RETIRED Are you deaf or do you have serious difficulty hearing Answer Date of Assessment Author Status No 06/25/2019 6:34 AM OUT OF TOWN COLLECTION CLERK Activ e * RETIRED Are you blind or do you have serious difficulty seeing, even when wearing glasses? Answer Date of Assessment Author Status No 06/25/2019 6:34 AM OUT OF TOWN COLLECTION CLERK Activ e * Do you have serious [...] as of this encounter Mental Status * Question Answer Entry Date Author Status Because of a physical, menta l, or emotional condition, do you have serious difficulty concentrating, remembering, or making decisions? No 06/25/2019 6:34 AM Obdulia Rey RN Activ e * Because of a physical, mental, or emotional condition, do you have serious difficulty concentrating, remembering, or making decisions? Answer Entry Date Author Status No 06/25/2019 6:34 AM Obdulia Rey RN Active documented in this encounter Plan of Treatment Not on file documented as of this encounter Visit Diagnoses Not on filedocumented in this encounter Care Teams Adjunct Faculty For Medical Terminology Relationship Specialty Start Date End Date Carrie Joseph PA-C PCP - General PHYSICIAN MANAGER ENTERPRISE 01/11/19 documented as of this encounter
--- OUTSIDE RECORDS SUMMARY | 2024-05-10 18:08 | XMS_ITS | Encounter Summary ---
Author Organization [facility] Address [address] [place] [address]. [place] [address] [place] [address] Care Team Providers Care Bailer Operators Supervisor Name Role Phone Unavailable Primary Care Provider Unavailabl e Encounter Details Date Type Department Care Team (Late st Contact Info) Description 01/07/2017 Orders Only ANY CONVERSION [place], [place] [id number] , Generic Conversion, Social History Tobacco Use [...] Procedure Name Priority Date/Time Associated Diagnosis Comments PHOSPHORUS, INORGANIC PHOSPHATE STAT 01/07/2017 1:54 PM CDT documented in this encounter Results * PHOSPHORUS, INORGANIC PHOSPHATE (01/07/2017 1:54 PM CDT) PHOSPHORUS 3.1 2.2 - 4.5 MG/DL 01/07/2017 1:[address] [facility] SERUM OR PLASMA SPECIMEN / Unknown 01/07/2017 1:54 PM CDT 01/07/2017 12:58 PM CDT us Generic Conversion Md [facility] Final R esult [facility] [address] [place] [address], [phone] documented in this encounter Visit Diagnoses Not on filedocumented in this encounter
--- OUTSIDE RECORDS SUMMARY | 2024-05-10 18:08 | XMS_ITS | Encounter Summary ---
Author Organization [facility] Address [address] [place] [address]. [place] [address] [place] [address] Care Team Providers Care Supervisor Packing Name Role Phone Unavailable Primary Care Provider Unavailabl e Encounter Details Date Type Department Care Team (Late st Contact Info) Description 01/07/2017 Orders Only ANY CONVERSION [place], [place] [id number] , Generic Conversion, Social History Tobacco Use [...] Procedure Name Priority Date/Time Associated Diagnosis Comments LIPASE STAT 01/07/2017 1:54 PM CDT documented in this encounter Results * (ABNORMAL) LIPASE (01/07/2017 1:54 PM CDT) LIPASE <4(L) 8 - 78 UNITS/L 01/07/2017 1:28 PM CDT [facility] SERUM OR PLASMA SPECIMEN / Unknown 01/07/2017 1:54 PM CDT 01/07/2017 12:58 PM CDT us Generic Conversion Md [facility] Final R esult [facility] [address] [place] [phone] documented in this encounter Visit Diagnoses Not on filedocumented in this encounter
--- OUTSIDE RECORDS SUMMARY | 2024-05-10 18:08 | XMS_ITS | Encounter Summary ---
Author Organization [facility] Address [address] [place] [address]. [place] [address] [place] [address] Care Team Providers Care Car Spotter Name Role Phone Unavailable Primary Care Provider Unavailabl e Encounter Details Date Type Department Care Team (Latest Contact Info) Description 12/26/2016 Abstract [facility] Social History Tobacco Use Types [...]
--- OUTSIDE RECORDS SUMMARY | 2024-05-10 18:08 | XMS_ITS | Encounter Summary ---
Author Organization [facility] Address [address] [place] [address]. [place] [address] [place] [address] Care Team Providers Care Systems Lead Name Role Phone Unavailable Primary Care Provider Unavailabl e Encounter Details Date Type Department Care Team (Latest Contact Info) Description 10/27/2017 Abstract [facility] Social History Tobacco Use Types [...]
--- OUTSIDE RECORDS SUMMARY | 2024-05-10 18:08 | XMS_ITS | Encounter Summary ---
Author Organization [facility] Address [address] [place] [address]. [place] [address] [place] [address] Care Team Providers Care Extractor And Wringer Operator Name Role Phone EmeraldCarrie moreland Josette BETTS Primary Care Provider Reason for Visit * Auth/Cert Specialty Diagnoses / Procedures Referred By Rachael frey Referred To Contact Diagnoses MISSED AB Procedures SURG TX MISSED ,1ST TRIMESTER DILATATION & CURETTAGE SUCTION Referral ID Status Reason Start Date Expiration Date Visits Re quested Visits Authorized [id number] 1 1 Encounter Details Date Type Department Care Team (Late st Contact Info) Description 04/24/2020 10:35 AM FITNESS PROFESSIONAL Anesthesia Event [facility] [address] [place] [address] Ivy Latham MD,PHD [address] [place] [address] Mary Tee, MARY Anesthesia Record Procedure Summary Procedure Name Responsible Anesthesiologist Anesthesia Start Time Anesthesia Stop Time DILATATION & CURETTAGE SUCTION (Uterus) Ivy Latham MD,PHD 04/24/20 1035 04/24/20 1106 Events Date Time Event Comment 04/24/2020 0927 0927 AN Anesthesia Prepped 1035 An Start Patient ID and consent checked and patient reassessed. 1036 An Start Data 1038 Preoxygenation 1039 An Induction 1040 An LMA 1041 Anesthesia Ready 1100 LMA Removed 1100 Face Mask Applied 1103 an stop data 1106 Post Anesthetic Care Handoff I completed my handoff to the receiving nurse during which we: 1. Identified the patient 2. Identified the responsible provider 3. Reviewed the pertinent medical history 4. Discussed the surgical course 5. Reviewed intra-op anesthesia management and issues during anesthesia 6. Set expectations for post-procedure period 7. Allowed opportunity for questions and acknowledgement of understanding. 1106 An Stop 1106 an stop data Meds Name Total midazolam (VERSED) 1 mg/mL injection 2 m g fentaNYL (SUBLIMAZE) 100 mcg/2 mL inject ion 100 mcg propofol (DIPRIVAN) 200 mg/20 mL injecti on 150 mg ondansetron (ZOFRAN) injection 4 mg ketorolac (TORADOL) 30 mg/mL injection 3 0 mg lactated ringers infusion 1,000 mL * Agents Name O2 Air Inspired Sevoflurane Sevoflurane Ancillary O2 * Blood No blood administrations on file. Lines, Drains, and Airways Type Details Placement Removal Peripheral IV Placement Date: 04/24/20; Placement Time: 0930; Size: 18 G; Orientation: Left; Location: Antecubital; Site Prep: Chlorhexidine; Local Anesthetic: None; Inserted By: Dr. Latham; Insertion attempts: 2; Ultrasound-guided Placement?: Yes; Patient Tolerance: Tolerated well; Removal Date: 04/24/20; Removal Time: 1150; Removal Reason: Patient Discharged 04/24/20 0930 by Desirae Jones RN 04/24/20 1150 by Cl You Supraglottic Airway Placement Date: 04/24/20; Placement Time: 1040; Airway Device: LMA; LMA Size: 3.5; Placed Outside of This Facility?: No; Placed By: PURNIMA; Style: AirQ; Insertion Attempts:1; Breath Sounds:Clear bilaterally, Equal bilaterally; Placement Verified By: Capnography, Auscultation, Chest Rise; Removal Date: 04/24/20; Removal Time: 1100 04/24/20 1040 by Charisma Yeager CRNA 04/24/20 1100 by Charisma Yeager CRNA Surgical/Incision 04/24/20; 1053; Surgical Wound; Perineum; Jessi Pad; 04/24/20; 1403 04/24/20 1053 by Mireya Boone RN 04/24/20 1403 by Automatic Discharge Provider documented in this encounter Social History Tobacco Use Types Packs/Day Years [...] have Coronavirus / COVID-19? No / Unsure 04/24/2020 7:52 AM FITNESS PROFESSIONAL documented as of this encounter Functional Status * RETIRED Are you deaf or do you have serious difficulty hearing Answer Date of Assessment Author Status No 06/25/2019 6:34 AM FITNESS PROFESSIONAL Activ e * RETIRED Are you blind or do you have serious difficulty seeing, even when wearing glasses? Answer Date of Assessment Author Status No 06/25/2019 6:34 AM FITNESS PROFESSIONAL Activ e * Do you have serious difficulty walking or climbing stairs? Answer Date of Assessment Author Status No 06/25/2019 6:34 AM FITNESS PROFESSIONAL Obdulia Guerrier RN Active * Do you have difficulty dressing or bathing? Answer Date of Assessment Author Status No 06/25/2019 6:34 AM FITNESS PROFESSIONAL Obdulia Guerrier RN Active * Because of a physical, mental, or emotional condition, do you have difficulty doing errands alone such as visiting a doctor's office or shopping? Answer Date of Assessment Author Status No 06/25/2019 6:34 AM FITNESS PROFESSIONAL Obdulia Guerrier RN Active documented as of this encounter Mental Status * Because of a physical, mental, or emotional condition, do you have serious difficulty concentrating, remembering, or making decisions? Answer Entry Date Author Status No 06/25/2019 6:34 AM FITNESS PROFESSIONAL Obdulia Guerrier RN Active documented in this encounter OR Notes * Anesthesia Postprocedure Evaluation - Ivy Latham MD,PHD - 04/24/2020 11:59 AM CST Anesthesia Post-op Note Karina Fuchs Procedure(s): DILATATION & CURETTAGE SUCTION (N/A Uterus) Anesthesia type: general Vitals: 04/24/20 1150 BP: 116/76 Vitals: 04/24/20 1150 Pulse: 100 Vitals: 04/24/20 1150 Resp: 18 Vitals: 04/24/20 1105 Temp: 36.2 ??C Vitals: 04/24/20 1150 SpO2: 100% Patient Location: PACU Level of Consciousness: awake, alert and oriented Pain Management: adequate analgesia Airway Patency: patent Respiratory Status: acceptable Cardiovascular Status: acceptable Post-Op Nausea: none Postoperative Hydration: euvolemic Complications: no anesthesia complication Comments: Pt evaluated, denies pain/n/v/recall, breathing comfortable, tolerating PO, ready for discharge from PACU. Post op FS 226 ESS PROFESSIONAL * Anesthesia Preprocedure Evaluation - Ivy Latham MD,PHD - 04/23/2020 8:31 AM CST Images from the original note were not included. Anesthesia ROS/MED History Reviewed: Patient summary , Nursing notes , ECG, Family history anesthesia, Anesthesia history , Medications , Labs , Images/Studies Pre-Anesthetic State: alert, awake and responds appropriately no history of anesthetic complications Pulmonary neg pulmonary ROS Cardiovascular neg cardio ROS Neuro/Psych neg neuro/psych ROS GI/Hepatic/Renal neg GI/hepatic/renal ROS Endo/Other (+) diabetes mellitus (special care hospital admission for DKAs), (poorly controlled), (type 1), (sub Q insulin) Comments: Patient is a 24-year-old 3 para 1 who is here with diagnosis of missed AB days onour ultrasound and her reporting of another ultrasound that was similar in finding done on GENERAL COMMENTS Pre-op diagnosis: MISSED AB H&P from 04/16/20 per [facility] 24F here for D&C at 6-8 wks, missed Denies vaginal bleeding or fluid leakage, + cramps Physical Evaluation Airway Mallampati: II TM Distance: >3 FB Neck ROM: normal Dental (chipped) Pulmonary Pulmonary exam normal Breath sounds clear to auscultation (-) wheezing Cardiovascular Rhythm: regular Rate: normal Cardiovascular exam normal (-) murmur Anesthesia Plan ASA 3 Intravenous Induction Anesthesia type: general GA LMA Informed Consent Anesthetic plan and risks discussed with patient of whom consent was obtained. Use of blood products discussed with patient of whom consent was obtained. . ESS PROFESSIONAL ESS PROFESSIONAL ESS PROFESSIONAL ESS PROFESSIONAL ESS PROFESSIONAL ESS PROFESSIONAL documented in this encounter Plan of Treatment Not on file documented as of this encounter Visit Diagnoses Not on filedocumented in this encounter Administered Medications Inactive Administered Medications - up to 3 most recent administrations Medication Order MAR Action Action Date Dose Rate Site fentaNYL (SUBLIMAZE) injection Intravenous, PRN, Starting on Wed04/24/20 at 1039, Until Wed04/24/20 at 1107, Anesthesia Intra-Op Given 04/24/2020 10:47 AM FITNESS PROFESSIONAL 50 mcg Given 04/24/2020 10:39 AM FITNESS PROFESSIONAL 50 mcg ketorolac (TORADOL) injection PRN, Starting on Wed04/24/20 at 1053, Until Wed04/24/20 at 1107, Anesthesia Intra-Op Given 04/24/2020 10:53 AM FITNESS PROFESSIONAL 3 0 mg midazolam (VERSED) injection Intravenous, PRN, Starting on Wed04/24/20 at 1034, Until Wed04/24/20 at 1107, Anesthesia Intra-Op Given 04/24/2020 10:34 AM FITNESS PROFESSIONAL 2 mg ondansetron (ZOFRAN) injection Intravenous, PRN, Starting on Wed04/24/20 at 1046, Until Wed04/24/20 at 1107, Anesthesia Intra-Op Given 04/24/2020 10:46 AM FITNESS PROFESSIONAL 4 mg propofol (DIPRIVAN) IV bolus Intravenous, PRN, Starting on Wed04/24/20 at 1039, Until Wed04/24/20 at 1107, Anesthesia Intra-Op Given 04/24/2020 10:39 AM FITNESS PROFESSIONAL 150 mg documented in this encounter Care Teams Extractor And Wringer Operator Relationship Specialty Start Date End Date Carrie Joseph PA-C PCP - General PHYSICIAN DOUBLE END TENON OPERATOR 01/11/19 documented as of this encounter
--- OUTSIDE RECORDS SUMMARY | 2024-05-10 18:08 | XMS_ITS | Encounter Summary ---
Author Organization [facility] Address [address] [place] [address]. [place] [address] [place] [address] Care Team Providers Care Brake Operator Sheet Metal Name Role Phone Jake Carrie Finch PA-C Primary Care Provider Encounter Details Date Type Department Care Team (Latest Contact Info) Description 04/24/2020 Travel Social History Tobacco Use Types Packs/Day [...] COVID-19? No / Unsure 04/24/2020 7:52 AM MAGNETIC PROSPECTOR documented as of this encounter Functional Status * RETIRED Are you deaf or do you have serious difficulty hearing Answer Date of Assessment Author Status No 06/25/2019 6:34 AM MAGNETIC PROSPECTOR Activ e * RETIRED Are you blind or do you have serious difficulty seeing, even when wearing glasses? Answer Date of Assessment Author Status No 06/25/2019 6:34 AM MAGNETIC PROSPECTOR Activ e * Do you have serious difficulty walking or climbing stairs? Answer Date of Assessment Author Status No 06/25/2019 6:34 AM MAGNETIC PROSPECTOR Obdulia Guerrier RN Active * Do you [...] on filedocumented in this encounter Care Teams Brake Operator Sheet Metal Relationship Specialty Start Date End Date Carrie Joseph PA-C PCP - General PHYSICIAN BIOFUELS PRODUCT DEVELOPMENT MANAGER 01/11/19 documented as of this encounter
--- OUTSIDE RECORDS SUMMARY | 2024-05-10 18:08 | XMS_ITS | Encounter Summary ---
Author Organization [facility] Address [address] [place] [address]. [place] [address] [place] [address] Care Team Providers Care Director Of Instructional Technology Name Role Phone Unavailable Primary Care Provider Unavailabl e Encounter Details Date Type Department Care Team (Late st Contact Info) Description 01/07/2017 Orders Only [place] [address] , Generic Conversion, Social History Tobacco Use [...] Procedure Name Priority Date/Time Associated Diagnosis Comments URINALYSIS TIMED 01/07/2017 1:45 PM CDT documented in this encounter Results * (ABNORMAL) URINALYSIS (01/07/2017 1:45 PM CDT) COLOR (U) LIGHT YELLOW 01/07/2017 1:08 PM CDT [facility] TRANSPARENCY HAZY 01/07/2017 1:08 PM CDT [facility] SPECIFIC GRAVITY (U) 1.016 1.002 - 1.035 01/07/2017 1:08 PM CDT [facility] U PH 6.0 5 - 8 01/07/2017 1:08 PM CDT [facility] PROTEIN (U) NEGATIVE NEGATIVE 01/07/2017 1:08 PM CDT [facility] URINE GLUCOSE >=500(A) NEGATIVE MG/DL 01/07/2017 1:08 PM CDT [facility] KETONES MG/DL (U) 80(A) NEGATIVE 01/07/2017 1:08 PM CDT [facility] BILIRUBIN (U) NEGATIVE NEGATIVE 01/07/2017 1:08 PM CDT [facility] BLOOD (U) MODERATE(A) NEGATIVE 01/07/2017 1:08 PM CDT [facility] NITRITES NEGATIVE NEGATIVE 01/07/2017 1:08 PM CDT [facility] UROBILINOGEN NORMAL 0 - 1 EU/DL 01/07/2017 1:08 PM CDT [facility] LEUKOCYTES (U) NEGATIVE NEGATIVE 01/07/2017 1:08 PM CDT [facility] RBC/HPF 4 /HPF 01/07/2017 1:08 PM CDT [facility] WBC/HPF 2 /HPF 01/07/2017 1:08 PM CDT [facility] BACTERIA (U) PRESENT /HPF 01/07/2017 1:08 PM CDT [facility] SQUAMOUS EPITHELIALS 1 01/07/2017 1:08 PM CDT [facility] URINE SPECIMEN / Unknown 01/07/2017 1:45 PM CDT 01/07/2017 12:58 PM CDT us Generic Conversion Md PASTRANA URINE ORDERABLES Final Result [facility] [address] [place] [address], [id number] documented in this encounter Visit Diagnoses Not on filedocumented in this encounter
--- OUTSIDE RECORDS SUMMARY | 2024-05-10 18:08 | XMS_ITS | Encounter Summary ---
Author Organization [facility] Address [address] [place] [address]. 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 Answer Date of Assessment Author Status No 06/25/2019 6:34 AM SENIOR INSTRUMENTATION ENGINEER Activ e * Do you have serious [...] Procedure Name Priority Date/Time Associated Diagnosis Comments PROCEDURE GENERIC (SCAN ORDER) 01/02/2020 documented in this encounter Results * PROCEDURE GENERIC (01/02/2020) 01/02/2020 Narrative 01/02/2020 Ordered by an unspecified provider. us Documents Scanned SCANNING Final Result documented in this encounter Visit Diagnoses Not on filedocumented in this encounter Care Teams Cafeteria Attendant Relationship Specialty Start Date End Date Carrie Joseph PA-C PCP - General PHYSICIAN BIN FILLER 01/11/19 documented as of this encounter
--- OUTSIDE RECORDS SUMMARY | 2024-05-10 18:08 | XMS_ITS | Encounter Summary ---
Author Organization [facility] Address [address] [place] [address]. [place] [address] [place] [address] Care Team Providers Care Emergency Medicine Name Role Phone EmeraldCarrie moreland Josette BETTS Primary Care Provider Reason for Visit * Reason Comments Vomiting * Auth/Cert Specialty Diagnoses / Procedures Referred By Contac t Referred To Contact Diagnoses Dehydration Vomiting Hyperglycemia Vomiting Referral ID Status Reason Start Date Expiration Date Visits Re quested Visits Authorized [id number] 1 1 Encounter Details Date Type Department Care Team (Late st Contact Info) Description 06/25/2019 2:49 AM SPECIAL EDUCATION BUS DRIVER - 06/25/2019 4:45 PM SPECIAL EDUCATION BUS DRIVER Emergency [place] [facility] [address] [facility] [place] [address] Cody Fonseca MD [address] [place] [address] Zbigniew Mendoza MD [address] [place] [address] Vomiting Discharge Disposition: Home or Self Care (Routine [...] on file documented as of this encounter Last Filed Vital Signs Vital Sign Reading Time Taken Comments Blood Pressure 107/56 06/25/2019 1:00 PM SPECIAL EDUCATION BUS DRIVER Pulse 113 06/25/2019 1:00 PM SPECIAL EDUCATION BUS DRIVER Temperature 36.9 ??C (98.5 ??F) 06/25/2019 1:00 PM CS T Respiratory Rate 20 06/25/2019 1:00 PM SPECIAL EDUCATION BUS DRIVER Oxygen Saturation 100% 06/25/2019 1:00 PM SPECIAL EDUCATION BUS DRIVER Inhaled Oxygen Concentration - - Weight 59.6 kg (131 lb 6.4 oz) 06/25/2019 5:35 A M SPECIAL EDUCATION BUS DRIVER Height 154.9 cm (5' 1 ) 06/25/2019 5:35 AM SPECIAL EDUCATION BUS DRIVER Body Mass Index 24.83 06/25/2019 5:35 AM SPECIAL EDUCATION BUS DRIVER documented in this encounter Functional Status * Question Answer [...] Assessment Author Status No 06/25/2019 6:34 AM SPECIAL EDUCATION BUS DRIVER Activ e * RETIRED Are you blind or do you have serious difficulty seeing, even when wearing glasses? Answer Date of Assessment Author Status No 06/25/2019 6:34 AM SPECIAL EDUCATION BUS DRIVER Activ e * Do you have serious [...] Rey RN Active documented in this encounter Discharge Summaries * Nhung Boyce NP - 06/25/2019 3:23 PM CST Physician Discharge Summary Patient ID: Karina Fuchs [id number] 23-year-old 1995 Primary Care Physician: CARRIE JOSEPH PA-C Admit date: 06/25/2019 Expected Discharge Date: 06/25/2019 Admitting Physician: Zbigniew Mendoza MD Discharge Physician: Jaime Mendoza MD Admission Diagnoses: Dehydration [E86.0] Vomiting [R11.10] Hyperglycemia [R73.9] Discharge Diagnoses: Dehydration, Vomiting, Hyperglycemia Hospital Course: Karina Fuchs is a 23-year-old female who presented to the emergency room for evaluation of vomiting. ??Patient has a history of Type 1 Diabetes Mellitus. Symptoms began in the evening. She reported 3 episodes of vomiting after having 1 drink last night. She denies any fevers or chills, diarrhea or constipation. No focal neurologic complaints. Patient states that she has been taking her insulin as prescribed. She states she was hospitalized at [facility] for DKA for 2 days last week. Her PCP, Kathy COLUNGA, is in [place], and she does not remember the last time she followed up with her. ?? Her WBC count is elevated at 11, 800. Glucose was 305 in the ER. Her alcohol level is <0.003. Beta hydroxybutyrate was elevated at 29 and Anion gap of 17.3. She was given insulin, Zofran, and Haldol in the ER and admitted for further evaluation and treatment.?? Patient is now alert and oriented. She has had no further episodes of nausea or vomiting. She is tolerating a diet. Patient will be discharged home on her current insulin regimen. Encouraged patient to follow up with her PCP after discharge and consider finding a physician closer to her home. She recently moved to [place]. Consults: none Code Status: Full Code Procedures: Procedures (From admission, onward) BASIC METABOLIC PANEL Routine BASIC METABOLIC PANEL TIMED RAPID DRUG SCREEN STAT ETHANOL Routine BETA-HYDROXYBUTYRATE STAT CBC W/DIFF AUTOMATED Routine COMPREHENSIVE METABOLIC PANEL Routine BLOOD GAS VENOUS Routine CHORIONIC GONADOTROPIN HCG SERUM STAT Referrals: No orders of the defined types were placed in this encounter. Significant Diagnostic Studies: see History and Physical Treatments: IV hydration, insulin Discharge Exam: Physical Exam Constitutional: She is oriented to person, place, and time. No distress. Cardiovascular: Normal rate and regular rhythm. Pulmonary/Chest: Effort normal and breath sounds normal. Abdominal: Soft. Bowel sounds are normal. Musculoskeletal: She exhibits no edema. Neurological: She is alert and oriented to person, place, and time. Vitals reviewed. Disposition: Home, self care Patient Instructions: Current Discharge Medication List CONTINUE these medications which have NOT CHANGED Details ADMELOG 100 UNIT/ML injection (VIAL) INJECT 6 UNITS SUBCUTANEOUSLY 3 TIMES DAILY BEFORE MEALS. PATIENT SPECIFIC SLIDING SCALE BASED OFF DIET Refills: 11 BASAGLAR KWIKPEN 100 UNIT/ML injection (PEN) INJECT 10 UNITS SUBCUTANEOUSLY AT BEDTIME Refills: 11 Activity: activity as tolerated Diet: diabetic diet Wound Care: none needed Follow-up with her PCP KEANU Torres within 1 week. Signed: Nhung Boyce NP 06/25/2019 3:23 PM Cosigned by Zbigniew Mendoza MD at 06/26/2019 8:32 AM SPECIAL EDUCATION BUS DRIVER IAL EDUCATION BUS DRIVER IAL EDUCATION BUS DRIVER Associated attestation - Zbigniew Mendoza MD - 06/26/2019 8:32 AM SPECIAL EDUCATION BUS DRIVER I, ZBIGNIEW MENDOZA MD, performed an examination of the patient on the day of discharge and discussed the discharge plans and disposition with the Advanced Practice Provider (ZOLTAN). I reviewed the ZOLTAN's note and agree with the findings and discharge plan of care, except as I have documented. I personally spent over 30 minutes in the discharge planning process. documented in this encounter Discharge Instructions * Attachments The following attachments cannot be sent through Care Everywhere. * Nausea and Vomiting Discharge Instructions, Adult (Malawian) documented in this encounter Medications at Time of Discharge ADMELOG 100 UNIT/ML injection (VIAL) INJECT 6 UNITS SUBCUTANEOUSLY 3 TIMES DAILY BEFORE MEALS. PATIENT SPECIFIC SLIDING SCALE BASED OFF DIET 12/27/2018 0 BASAGLAR KWIKPEN 100 UNIT/ML injection (PEN)Indication s:Diabetes Mellitus Inject 10 Units into the skin nightly at bedtime. Indications: Diabetes 12/27/2018 5 documented as of this encounter Progress Notes * Herlinda Arana RN - 06/25/2019 4:24 PM CST Dc home IAL EDUCATION BUS DRIVER documented in this encounter H&P Notes * Nhung Boyce NP - 06/25/2019 12:00 PM CST Attending Provider: Zbigniew Mendoza MD PCP: CARRIE JOSEPH PA-C Karina Fuchs is an 23-year-old female. Reason for Admission: Vomiting HPI: Karina Fuchs is a 23-year-old female who presented to the emergency room for evaluation of vomiting. Patient has a history of Type 1 Diabetes Mellitus. Symptoms began in the evening. She reported 3 episodes of vomiting after having a drink in the evening She denies any fevers or chills, diarrhea or constipation. No focal neurologic complaints. Patient states that she has been taking her insulin as prescribed. She states she was hospitalized at [facility] for DKA for 2 days last week. Her PCP, KEANU Burns, is in [place], and she does not remember the last time she followed up with her PCP. Her WBC count is elevated at 11, 800. Glucose was 305 in the ER. Her alcohol level is <0.003. Beta hydroxybutyrate was elevated at 29 and Anion gap of 17.3. She was given insulin, Zofran, and Haldol in the ER and admitted for further evaluation and treatment. Past Medical History: Diagnosis Date ??? 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 Smoking status: Never Smoker ??? Smokeless tobacco: Never Used Substance Use Topics ??? Alcohol use: Yes Past Surgical History: Procedure Laterality Date ??? ABDOMINAL SURGERY ??? TONSILLECTOMY No family history on file. Travel Exposure: No current facility-administered medications on file prior to encounter. Current Outpatient Medications on File Prior to Encounter Medication Sig ??? ADMELOG 100 UNIT/ML injection (VIAL) INJECT 6 UNITS SUBCUTANEOUSLY 3 TIMES DAILY BEFORE MEALS. PATIENT SPECIFIC SLIDING SCALE BASED OFF DIET ??? BASAGLAR KWIKPEN 100 UNIT/ML injection (PEN) INJECT 10 UNITS SUBCUTANEOUSLY AT BEDTIME Blood pressure (!) 144/72, pulse 128, temperature 98.5 ??F (36.9 ??C), temperature source Tympanic,resp. rate 18, height 5' 1 (1.549 m), weight 59.6 kg (131 lb 6.4 oz), last menstrual period 06/11/2019, SpO2 99 %. No results found for this visit on 06/25/19. No results found. Labs Reviewed CBC W/DIFF AUTOMATED - Abnormal; Notable for the following components: Result Value WBC 11.8 (*) PLT 373 (*) ABS. NEUTROPHILS 11.11 (*) ABS. LYMPHOCYTES 0.24 (*) ABS. IMMATURE GRANULOCYTES 0.05 (*) All other components within normal limits COMPREHENSIVE METABOLIC PANEL - Abnormal; Notable for the following components: GLUCOSE 305 (*) BUN 1 (*) AST 12 (*) ANION GAP 17.3 (*) All other components within normal limits BLOOD GAS, VENOUS - Abnormal; Notable for the following components: O2 Sat.-Venous 82 (*) pH-Venous 7.48 (*) PC02 VENOUS 29.2 (*) PO2 VENOUS 48.0 (*) Bicarb-Venous 21.7 (*) TCO2 22.6 (*) All other components within normal limits ETHANOL - Abnormal; Notable for the following components: Alcohol <0.003 (*) All other components within normal limits BETA-HYDROXYBUTYRATE - Abnormal; Notable for the following components: BETA-HYDROXYBUTYRATE 2.9 (*) All other components within normal limits BASIC METABOLIC PANEL - Abnormal; Notable for the following components: GLUCOSE 294 (*) CREATININE 0.44 (*) CALCIUM 8.3 (*) All other components within normal limits BASIC METABOLIC PANEL - Abnormal; Notable for the following components: GLUCOSE 274 (*) CREATININE 0.47 (*) CALCIUM 8.0 (*) All other components within normal limits POCT GLUCOSE - MCCORMICK DOCKED DEVICE - Abnormal; Notable for the following components: GLUCOSE POC 278 (*) All other components within normal limits POCT GLUCOSE - MCCORMICK DOCKED DEVICE - Abnormal; Notable for the following components: GLUCOSE POC 258 (*) All other components within normal limits POCT GLUCOSE - MCCORMICK DOCKED DEVICE - Abnormal; Notable for the following components: GLUCOSE POC 264 (*) All other components within normal limits POCT GLUCOSE - MCCORMICK DOCKED DEVICE - Abnormal; Notable for the following components: GLUCOSE POC 273 (*) All other components within normal limits POCT GLUCOSE - MCCORMICK DOCKED DEVICE - Abnormal; Notable for the following components: GLUCOSE POC 242 (*) All other components within normal limits HCG QUANT (SERUM)-CHORIONIC GONADOTROPIN DRUG SCREEN RAPID BASIC METABOLIC PANEL Microbiology Results (last 14 days) No results found for the last 336 hours. Review of Systems Gastrointestinal: Positive for vomiting. All other systems reviewed and are negative. Physical Exam Constitutional: She is oriented to person, place, and time. She appears lethargic. She is sleeping.No distress. HENT: Head: Normocephalic. Eyes: Pupils are equal, round, and reactive to light. Neck: Normal range of motion. Cardiovascular: Regular rhythm. Tachycardia present. Pulmonary/Chest: Effort normal and breath sounds normal. Abdominal: Soft. Bowel sounds are normal. Musculoskeletal: Normal range of motion. She exhibits no edema. Neurological: She is oriented to person, place, and time. She appears lethargic. Skin: Skin is warm and dry. Vitals reviewed. Assessment and Plan: Primary Problems: Vomiting, resolved. Continue antiemetics PRN. Active Problems: Diabetes Mellitus, Type 1. Continue insulin regimen ACHS. BMP in AM. Advance diet as tolerated. Anticipate discharge home later today if patient is tolerating diet. Nhung Boyce NP 06/25/2019 Cosigned by Zbigniew Mendoza MD at 06/26/2019 8:31 AM SPECIAL EDUCATION BUS DRIVER IAL EDUCATION BUS DRIVER IAL EDUCATION BUS DRIVER IAL EDUCATION BUS DRIVER Associated attestation - Zbigniew Mendoza MD - 06/26/2019 8:31 AM SPECIAL EDUCATION BUS DRIVER I, ZBIGNIEW MENDOZA MD, performed a History and Physical examination of the patient and discussed the management with the Advanced Practice Provider (ZOLTAN). I reviewed the ZOLTAN's note and agree with thefindings and plan of care, except as I have documented. documented in this encounter ED Notes * Krystyna Salvador RN - 06/25/2019 5:20 AM CST Report given to MARY Golden IAL EDUCATION BUS DRIVER * Cody Fonseca MD - 06/25/2019 5:10 AM CST Chief Complaint Chief Complaint Patient presents with ??? Vomiting History of Present Illness 23-year-old female presents with vomiting. Symptoms began this evening she has had roughly 3 episodes of emesis. She denies any fevers or chills. No back or abdominal pain. No focal neurologic complaint. No diarrhea. No melena or hematochezia. No hematemesis. No travel history or known sick contacts. Patient states that she has been taking her insulin as prescribed. She does admit to drinking 1 cocktail this evening. She denies any other complaints at this time. Medical History ALLERGIES: No Known Allergies MEDICATIONS: Prior to Admission medications Medication Sig Start Date End Date Taking? Authorizing Provider ADMELOG 100 UNIT/ML injection (VIAL) INJECT 6 UNITS SUBCUTANEOUSLY 3 TIMES DAILY BEFORE MEALS. PATIENT SPECIFIC SLIDING SCALE BASED OFF DIET 12/27/18 Yes Doc Abstract BASAGLAR KWIKPEN 100 UNIT/ML injection (PEN) INJECT 10 UNITS SUBCUTANEOUSLY AT BEDTIME 12/27/18 Doc Abstract PAST MEDICAL HISTORY: Past Medical History: Diagnosis Date ??? 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 ABDOMINAL SURGERY ??? TONSILLECTOMY FAMILY HISTORY: No family history on file. SOCIAL HISTORY: Social History Tobacco Use ??? Smoking status: Never Smoker ??? Smokeless tobacco: Never Used Substance Use Topics ??? Alcohol use: Yes ??? Drug use: Never Review of Systems Review of Systems All other systems reviewed and are negative. Physical Exam Filed Vitals: 06/25/19 0246 BP: 136/88 Pulse: 124 Resp: 18 Temp: 98.1 ??F (36.7 ??C) TempSrc: Oral SpO2: 100% Weight: 59 kg (130 lb) Height: 5' 1 (1.549 m) Physical Exam Gen: alert and oriented x 3. GCS 15. Well nourished, slightly dehydrated in mild distress. Heent: perrl, eomi, op clear, mucosa dry, neck supple no meningismus/meningitic signs, no lad Cardiac: Nl S1/S2, RR, heart rate 110, no murmurs rubs gallops. Pulmonary: Clear to auscultation b/l. No wheeze, rhonchi, crackles Abdomen: s/nt/nd NABS. No rebound, guarding or rigidity Extremity: Pt. able to move all four extremities. No rash, Cyanosis, Edema Neuro: Moves all four extremities equally Diagnostic Studies / Procedures ELECTROCARDIOGRAMS: No results found for this visit on 06/25/19. LABORATORY STUDIES: Results for orders placed or performed during the hospital encounter of 06/25/19 CBC W/DIFF AUTOMATED Result Value Ref Range WBC 11.8 (H) 4.5 - 10.8 x10'3/uL RBC 4.78 4.10 - 5.40 x10'6/uL HGB 14.0 12.0 - 16.0 G/DL HCT 41.1 36.0 - 47.0 % MCV 86.0 78.0 - 100.0 FL MCH 29.3 27.0 - 31.0 PG MCHC 34.1 33.0 - 36.0 G/DL RDW 13.5 11.5 - 14.5 % PLT 373 (H) 150 - 350 x10'3/uL MPV 9.2 7.4 - 10.4 FL Differential Comment NORMAL REFERENCE RANGE NOT ESTABLISHED FOR THE PROPORTIONAL LEUKOCYTE DIFFERENTIAL. SEG NEUTROPHILS 94.5 % LYMPHOCYTES 2.0 % MONOCYTES 2.9 % EOSINOPHILS 0.0 % BASOPHILS 0.2 % IMMATURE GRANS 0.4 % NRBC 0.0 % ABS. NEUTROPHILS 11.11 (H) 1.60 - 8.30 x10'3/uL ABS. LYMPHOCYTES 0.24 (L) 0.80 - 4.70 x10'3/uL ABS. MONOCYTES 0.34 0.00 - 1.50 x10'3/uL ABS. EOSINOPHILS 0.00 0.00 - 0.40 x10'3/uL ABS. BASOPHILS 0.02 0.00 - 0.20 x10'3/uL ABS. IMMATURE GRANULOCYTES 0.05 (H) 0.00 - 0.03 x10'3/uL ABS. NUCLEATED RBC'S 0.00 0.00 x10'3/uL COMPREHENSIVE METABOLIC PANEL Result Value Ref Range SODIUM 138 136 - 145 MMOL/L POTASSIUM 3.9 3.5 - 5.1 MMOL/L CHLORIDE 99 98 - 107 MMOL/L CO2 21.7 21.0 - 32.0 MMOL/L GLUCOSE 305 (H) 70 - 99 MG/DL BUN 1 (L) 6 - 24 MG/DL CREATININE 0.66 0.55 - 1.02 MG/DL CALCIUM 8.5 8.4 - 10.5 MG/DL TOTAL BILIRUBIN 0.9 0.2 - 1.0 MG/DL ALK PHOS 75 52 - 144 U/L AST 12 (L) 15 - 37 U/L ALT 14 14 - 59 U/L TOTAL PROTEIN 7.1 6.4 - 8.2 G/DL ALBUMIN 3.8 3.4 - 5.0 G/DL ANION GAP 17.3 (H) 5.0 - 15.0 MMOL/L OSMOLALITY (CALC) 293 MOSM/KG eGFR Non-Afr. Amer. >90 >89 ML/MIN/1.73 M2 eGFR Afr. Amer. >90 >89 ML/MIN/1.73 M2 GFR NOTES GFR REFERENCES: Blood gas, venous Result Value Ref Range O2 Sat.-Venous 82 (H) 40 - 70 % pH-Venous 7.48 (H) 7.35 - 7.45 PC02 VENOUS 29.2 (L) 41.0 - 51.0 MMHG PO2 VENOUS 48.0 (H) 20.0 - 40.0 MM HG Base Deficit,Venous 0.3 MMOL/L Bicarb-Venous 21.7 (L) 22.0 - 29.0 MMOL/L TCO2 22.6 (L) 25.0 - 29.0 MMOL/L LITER FLOW ROOM AIR HCG QUANT (SERUM)-CHORIONIC GONADOTROPIN Result Value Ref Range HCG, QUANTITATIVE <1 0.0 - 6.0 MIU/ML ETHANOL Result Value Ref Range Alcohol <0.003 (H) 0 G/DL BETA-HYDROXYBUTYRATE Result Value Ref Range BETA-HYDROXYBUTYRATE 2.9 (H) 0.0 - 0.3 MMOL/L POCT glucose Result Value Ref Range GLUCOSE POC 278 (H) 70 - 99 MG/DL IMAGING STUDIES No orders to display ED Course / Medical Decision Making Patient had IV placed and was given 2 L of normal saline. Basic labs were reviewed. Blood sugar is elevated at 305. pH and bicarb are currently within the normal range. She was ordered insulin 10 units subcutaneous. No overt signs of DKA at this time. She does have persistent vomiting however and has been given Zofran, Reglan, Haldol. She will be admitted under the care of Dr. Jaime Mendoza for IV hydration and further evaluation. Multiple diagnoses were considered in this patient. Clinical Impression Vomiting (Primary) Dehydration Hyperglycemia Disposition: Observation Cody Fonseca MD 06/25/19 0514 IAL EDUCATION BUS DRIVER * Krystyna Salvador RN - 06/25/2019 4:13 AM CST Pt uncooperative and urinated pants than to give a urine specimen. IAL EDUCATION BUS DRIVER * Krystyna Salvador RN - 06/25/2019 3:00 AM CST Asked pt for urine specimen. Pt states she is unable to urinate now. IAL EDUCATION BUS DRIVER * Krystyna Salvador RN - 06/25/2019 2:45 AM CST Also noted that she drank yesterday, a glass of mixed etoh. IAL EDUCATION BUS DRIVER * Krystyna Salvador RN - 06/25/2019 2:43 AM CST Arrives w vomiting onset 0000, denies abdominal pain. States blood sugar has been ok lately. IAL EDUCATION BUS DRIVER documented in this encounter Plan of Treatment Not on file documented as of this encounter Procedures Procedure Name Priority Date/Time Associated Diagnosis Comments POCT GLUCOSE - MCCORMICK DOCKED DEVICE Routine 06/25/2019 3:54 PM SPECIAL EDUCATION BUS DRIVER BASIC METABOLIC PANEL TIMED 06/25/2019 2:58 PM SPECIAL EDUCATION BUS DRIVER POCT GLUCOSE - MCCORMICK DOCKED DEVICE Routine 06/25/2019 11:44 AM SPECIAL EDUCATION BUS DRIVER BASIC METABOLIC PANEL TIMED 06/25/2019 10:30 AM SPECIAL EDUCATION BUS DRIVER DRUG SCREEN RAPID STAT 06/25/2019 10: 00 AM SPECIAL EDUCATION BUS DRIVER POCT GLUCOSE - MCCORMICK DOCKED DEVICE Routine 06/25/2019 8:30 AM SPECIAL EDUCATION BUS DRIVER BASIC METABOLIC PANEL TIMED 06/25/2019 6:42 AM SPECIAL EDUCATION BUS DRIVER POCT GLUCOSE - MCCORMICK DOCKED DEVICE Routine 06/25/2019 5:58 AM SPECIAL EDUCATION BUS DRIVER POCT GLUCOSE - MCCORMICK DOCKED DEVICE Routine 06/25/2019 5:13 AM SPECIAL EDUCATION BUS DRIVER BETA-HYDROXYBUTYRATE STAT 06/25/2019 2:59 AM SPECIAL EDUCATION BUS DRIVER BLOOD GAS, VENOUS STAT 06/25/2019 2:5 9 AM SPECIAL EDUCATION BUS DRIVER COMPREHENSIVE METABOLIC PANEL STAT 06/25/2019 2:59 AM SPECIAL EDUCATION BUS DRIVER HCG QUANT (SERUM)-CHORIONIC GONADOTROPIN STAT 06/25/2019 2:59 AM SPECIAL EDUCATION BUS DRIVER CBC W/DIFF AUTOMATED STAT 06/25/2019 2:59 AM SPECIAL EDUCATION BUS DRIVER ETHANOL STAT 06/25/2019 2:59 AM SPECIAL EDUCATION BUS DRIVER POCT GLUCOSE - MCCORMICK DOCKED DEVICE Routine 06/25/2019 2:48 AM SPECIAL EDUCATION BUS DRIVER documented in this encounter Results * (ABNORMAL) POCT glucose (06/25/2019 3:54 PM SPECIAL EDUCATION BUS DRIVER) GLUCOSE POC 107(H) 70 - 99 MG/DL 06/25/2019 4:00 PM SPECIAL EDUCATION BUS DRIVER [facility] ORDERS INTERFACE 06/25/2019 3:54 PM SPECIAL EDUCATION BUS DRIVER us Zbigniew Mendoza MD POCT ORDERABLES - DEVICE Final Result [facility] ORDERS INTERFACE US * (ABNORMAL) BASIC METABOLIC PANEL (06/25/2019 2:58 PM SPECIAL EDUCATION BUS DRIVER) Pathologist [facility] SODIUM S/P/B 140 136 - 145 MMOL/L 06/25/2019 3:16 PM [facility] POTASSIUM S/P/B 4.1 3.5 - 5.1 MMOL/L 06/25/2019 3:16 PM [facility] Comment:MILD HEMOLYSIS, RESU LT MAY BE AFFECTED. CHLORIDE S/P/B 106 98 - 107 MMOL/L 06/25/2019 3:16 PM [facility] CO2 16.7(L) 21.0 - 32.0 MMOL/L 06/25/2019 3:16 PM [facility] GLUCOSE 132(H) 70 - 99 MG/DL 06/25/2019 3:16 PM [facility] Comment: FASTING GLUCOSE 100 TO 125 MG/DL IS CONSISTENT WITH IMPAIRED FASTING GLUCOSE. FASTING GLUCOSE >125 MG/DL IS CONSISTENT WITH DIABETES. RANDOM GLUCOSE >200 MG/DL WITH HYPERGLYCEMIC SYMPTOMS IS CONSISTENT WITH DIABETES. PER ADA GUIDELINES BUN 14 6 - 24 MG/DL 06/25/2019 3:16 PM [facility] CREATININE S/P/B 0.46(L) 0.55 - 1.02 MG/DL 06/25/2019 3:16 PM [facility] CALCIUM S/P/B 8.1(L) 8.4 - 10.5 MG/DL 06/25/2019 3:16 PM [facility] ANION GAP 17.3(H) 5.0 - 15.0 MMOL/L 06/25/2019 3:16 PM SPECIAL EDUCATION BUS DRIVER [facility] OSMOLALITY (CALC) 292 MOSM/KG 020 3:16 PM [facility] Comment:REFERENCE RANGE NOT ESTABLISHED EGFR NON-AFR. AMER. >90 >89 ML/MIN/1. 73 M2 06/25/2019 3:16 PM SPECIAL EDUCATION BUS DRIVER [facility] EGFR AFR. AMER. >90 >89 ML/MIN/1. 73 M2 06/25/2019 3:16 PM SPECIAL EDUCATION BUS DRIVER [facility] GFR NOTES GFR REFERENCE S: 06/25/2019 3:16 PM [facility] Comment: THE ESTIMATED GFR IS CALCULATED USING THE 2009 CKD-EPI EQUATION. THE FOLLOWING CATEGORIES FOR GRADING RENAL FUNCTION ARE RECOMMENDED BY THE INTERNATIONAL SOCIETY OF NEPHROLOGY (KDIGO 2012 CLINICAL PRACTICE GUIDELINE). G1,NORMAL OR HIGH: >89 ml/min/1.73 m2 G2,MILDLY DECREASED: 60-89 ml/min/1.73 m2 G3A,MILDLY TO MODERATELY DECREASED: 45-59 ml/min/1.73 m2 G3B,MODERATELY TO SEVERELY DECREASED: 30-44 ml/min/1.73 m2 G4,SEVERELY DECREASED: 15-29 ml/min/1.73 m2 G5,KIDNEY FAILURE: <15 ml/min/1.73 m2 06/25/2019 2:58 PM SPECIAL EDUCATION BUS DRIVER Cody Fonseca MD LABORATORY Final Resul t Performing Organization Address City/Va Hospital/ZIP Co de Phone Number [facility] [address] [place] [address], * (ABNORMAL) POCT glucose (06/25/2019 11:44 AM SPECIAL EDUCATION BUS DRIVER) GLUCOSE POC 242(H) 70 - 99 MG/DL 06/25/2019 11:50 AM SPECIAL EDUCATION BUS DRIVER [facility] ORDERS INTERFACE 06/25/2019 11:4 4 AM SPECIAL EDUCATION BUS DRIVER Zbigniew Mendoza MD POCT ORDERABLES - DEVICE Final Result [facility] ORDERS INTERFACE US * (ABNORMAL) BASIC METABOLIC PANEL (06/25/2019 10:30 AM [facility]) SODIUM S/P/B 141 136 - 145 MMOL/L 06/25/2019 11:20 AM [facility] POTASSIUM S/P/B 3.9 3.5 - 5.1 MMOL/L 06/25/2019 11:20 AM [facility] CHLORIDE S/P/B 105 98 - 107 MMOL/L 06/25/2019 11:20 AM [facility] CO2 22.8 21.0 - 32.0 MMOL/L 06/25/2019 11:20 AM [facility] GLUCOSE 274(H) 70 - 99 MG/DL 06/25/2019 11:20 AM [facility] Comment: FASTING GLUCOSE 100 TO 125 MG/DL IS CONSISTENT WITH IMPAIRED FASTING GLUCOSE. FASTING GLUCOSE >125 MG/DL IS CONSISTENT WITH DIABETES. RANDOM GLUCOSE >200 MG/DL WITH HYPERGLYCEMIC SYMPTOMS IS CONSISTENT WITH DIABETES. PER ADA GUIDELINES BUN 14 6 - 24 MG/DL 06/25/2019 11:20 AM [facility] CREATININE S/P/B 0.47(L) 0.55 - 1.02 MG/DL 06/25/2019 11:20 AM [facility] CALCIUM S/P/B 8.0(L) 8.4 - 10.5 MG/DL 06/25/2019 11:20 AM [facility] ANION GAP 13.2 5.0 - 15.0 MMOL/L 06/25/2019 11:20 AM [facility] OSMOLALITY (CALC) 302 MOSM/KG 020 11:20 AM [facility] Comment:REFERENCE RANGE NOT ESTABLISHED EGFR NON-AFR. AMER. >90 >89 ML/MIN/1. 73 M2 06/25/2019 11:20 AM [facility] EGFR AFR. AMER. >90 >89 ML/MIN/1. 73 M2 06/25/2019 11:20 AM [facility] GFR NOTES GFR REFERENCE S: 06/25/2019 11:20 AM [employer] EDUCATION [employer] DRIVER [facility] Comment: THE ESTIMATED GFR IS CALCULATED USING THE 2009 CKD-EPI EQUATION. THE FOLLOWING CATEGORIES FOR GRADING RENAL FUNCTION ARE RECOMMENDED BY THE INTERNATIONAL SOCIETY OF NEPHROLOGY (KDIGO 2012 CLINICAL PRACTICE GUIDELINE). G1,NORMAL OR HIGH: >89 ml/min/1.73 m2 G2,MILDLY DECREASED: 60-89 ml/min/1.73 m2 G3A,MILDLY TO MODERATELY DECREASED: 45-59 ml/min/1.73 m2 G3B,MODERATELY TO SEVERELY DECREASED: 30-44 ml/min/1.73 m2 G4,SEVERELY DECREASED: 15-29 ml/min/1.73 m2 G5,KIDNEY FAILURE: <15 ml/min/1.73 m2 06/25/2019 10:3 0 AM [employer] EDUCATION BUS DRIVER us Cody Fonseca MD LABORATORY Final Resul t [facility] [place] [address], * DRUG SCREEN RAPID (06/25/2019 10:00 AM SPECIAL EDUCATION BUS DRIVER) CANNABINOIDS SCREEN (U) NEGATIVE NEGATIVE 06/25/2019 10:23 AM [facility] PHENCYCLIDINE PCP (U) NEGATIVE NEGATIVE 06/25/2019 10:23 AM [facility] COCAINE METABOLITES (U) NEGATIVE NEGATIVE 06/25/2019 10:23 AM [facility] METHAMPHETAMINE (U) NEGATIVE NEGATIVE 06/25/2019 10:23 AM [facility] OPIATE SCREEN (U) NEGATIVE NEGATIVE 020 10:23 AM [employer]UCATION [employer] DRIVER [facility] AMPHETAMINE (U) NEGATIVE NEGATIVE 0 10:23 AM [facility] BENZODIAZEPINES SCREEN (U) NEGATIVE NEGATIVE 06/25/2019 10:23 AM [facility] TRICYCLIC ANTIDEPRESSANT SCREEN (U) NEGATIVE NEGATIVE 06/25/2019 10:23 AM [facility] METHADONE (U) NEGATIVE NEGATIVE 06/25/2019 10:23 AM [facility] BARBITURATES SCREEN (U) NEGATIVE NEGATIVE 06/25/2019 10:23 AM [facility] OXYCODONE SCREEN (U) NEGATIVE NEGATIVE 06/25/2019 10:23 AM [facility] PROPOXYPHENE SCREEN (U) NEGATIVE NEGATIVE 06/25/2019 10:23 AM [facility] URINE TOX COMMENT THIS TEST METHODOLOGY IS DESIGNED AND OFFERED A RAPID TURNAROUND, QUALITATIVE SCREENING PROCEDURE TO AID IN THE IMMEDIATE MEDICAL ASSESSMENT OF PATIENTS SUSPECTED OF SUBSTANCE ABUSE. 06/25/2019 10:04 AM [employer] EDUCATION BUS DRIVER [facility] Comment: CLINICAL CONSIDERATION AND PROFESSIONAL JUDGMENT MUST BE APPLIED TO ANY DRUG OF ABUSE TEST RESULT, BOTH POSITIVE AND NEGATIVE. CONFIRMATORY QUANTITATIVE RESULTS ARE AVAILABLE THROUGH OUR REFERENCE LABORATORY. Urine specimen (specimen) URINE SPECIMEN / Unknown 06/25/2019 10:00 AM [employer] EDUCATION BUS DRIVER us Cody Fonseca MD URINE ORDERABLES Final Resu lt Performing Organization Address City/Va Hospital/ZIP Co de Phone Number [facility] [address] [place] [address], * (ABNORMAL) POCT glucose (06/25/2019 8:30 AM SPECIAL EDUCATION BUS DRIVER) GLUCOSE POC 273(H) 70 - 99 MG/DL 06/25/2019 8:34 AM [employer] EDUCATION BUS DRIVER [facility] ORDERS INTERFACE 06/25/2019 8:30 AM [employer] EDUCATION BUS DRIVER us Zbigniew Mendoza MD POCT ORDERABLES - DEVICE Final Result Performing Organization Address City/[facility] Hospital/ZIP Co de Phone Number [facility] ORDERS INTERFACE US * (ABNORMAL) BASIC METABOLIC PANEL (06/25/2019 6:42 AM SPECIAL EDUCATION BUS DRIVER) SODIUM S/P/B 141 136 - 145 MMOL/L 06/25/2019 6:58 AM [facility] POTASSIUM S/P/B 4.0 3.5 - 5.1 MMOL/L 06/25/2019 6:58 AM [facility] CHLORIDE S/P/B 105 98 - 107 MMOL/L 06/25/2019 6:58 AM [facility] CO2 21.3 21.0 - 32.0 MMOL/L 06/25/2019 6:58 AM [facility] GLUCOSE 294(H) 70 - 99 MG/DL 06/25/2019 6:58 AM [facility] Comment: FASTING GLUCOSE 100 TO 125 MG/DL IS CONSISTENT WITH IMPAIRED FASTING GLUCOSE. FASTING GLUCOSE >125 MG/DL IS CONSISTENT WITH DIABETES. RANDOM GLUCOSE >200 MG/DL WITH HYPERGLYCEMIC SYMPTOMS IS CONSISTENT WITH DIABETES. PER ADA GUIDELINES BUN 15 6 - 24 MG/DL 06/25/2019 6:58 AM [facility] CREATININE S/P/B 0.44(L) 0.55 - 1.02 MG/DL 06/25/2019 6:58 AM [facility] CALCIUM S/P/B 8.3(L) 8.4 - 10.5 MG/DL 06/25/2019 6:58 AM [facility] ANION GAP 14.7 5.0 - 15.0 MMOL/L 06/25/2019 6:58 AM [facility] OSMOLALITY (CALC) 304 MOSM/KG 020 6:58 AM [facility] Comment:REFERENCE RANGE NOT ESTABLISHED EGFR NON-AFR. AMER. >90 >89 ML/MIN/1. 73 M2 06/25/2019 6:58 AM [facility] EGFR AFR. AMER. >90 >89 ML/MIN/1. 73 M2 06/25/2019 6:58 AM [facility] GFR NOTES GFR REFERENCE S: 06/25/2019 6:58 AM [facility] Comment: THE ESTIMATED GFR IS CALCULATED USING THE 2009 CKD-EPI EQUATION. THE FOLLOWING CATEGORIES FOR GRADING RENAL FUNCTION ARE RECOMMENDED BY THE INTERNATIONAL SOCIETY OF NEPHROLOGY (KDIGO 2012 CLINICAL PRACTICE GUIDELINE). G1,NORMAL OR HIGH: >89 ml/min/1.73 m2 G2,MILDLY DECREASED: 60-89 ml/min/1.73 m2 G3A,MILDLY TO MODERATELY DECREASED: 45-59 ml/min/1.73 m2 G3B,MODERATELY TO SEVERELY DECREASED: 30-44 ml/min/1.73 m2 G4,SEVERELY DECREASED: 15-29 ml/min/1.73 m2 G5,KIDNEY FAILURE: <15 ml/min/1.73 m2 06/25/2019 6:42 AM [employer] EDUCATION BUS DRIVER us Cody Fonseca MD LABORATORY Final Resul t Performing Organization Address [facility] Co de Phone Number [facility] [address] [place] [address], [place] [phone] * (ABNORMAL) POCT glucose (06/25/2019 5:58 AM SPECIAL EDUCATION BUS DRIVER) GLUCOSE POC 264(H) 70 - 99 MG/DL 06/25/2019 6:01 AM [employer] EDUCATION BUS DRIVER [facility] ORDERS INTERFACE 06/25/2019 5:58 AM [employer] EDUCATION BUS DRIVER us Cody Fonseca MD POCT ORDERABLES - DEVICE Fi nal Result Performing Organization Address [facility] de Phone Number [facility] ORDERS INTERFACE US * (ABNORMAL) POCT glucose (06/25/2019 5:13 AM SPECIAL EDUCATION BUS DRIVER) GLUCOSE POC 258(H) 70 - 99 MG/DL 06/25/2019 5:14 AM SPECIAL EDUCATION BUS DRIVER [facility] ORDERS INTERFACE 06/25/2019 5:13 AM SPECIAL EDUCATION BUS DRIVER us Cody Fonseca MD POCT ORDERABLES - DEVICE Fi nal Result Performing Organization Address [facility] de Phone Number [facility] ORDERS INTERFACE US * (ABNORMAL) BETA-HYDROXYBUTYRATE (06/25/2019 2:59 AM SPECIAL EDUCATION BUS DRIVER) BETA-HYDROXYBU TYRATE 2.9(H) 0.0 - 0.3 MMOL/L 06/25/2019 3:10 AM [employer] EDUCATION [employer] DRIVER [facility] 06/25/2019 2:59 AM SPECIAL EDUCATION BUS DRIVER us Cody Fonseca MD LABORATORY Final Resul t Performing Organization Address [facility] Co de Phone Number [facility] [address] [place] [address], [place] [phone] * (ABNORMAL) ETHANOL (06/25/2019 2:59 AM SPECIAL EDUCATION BUS DRIVER) [facility] ALCOHOL S/P/B <0.003(H) 0 G/DL 06/25/2019 3:39 AM SPECIAL EDUCATION BUS DRIVER [facility] 06/25/2019 2:59 AM SPECIAL EDUCATION BUS DRIVER us Cody Fonseca MD LABORATORY Final Resul t Performing Organization Address City/[facility] Hospital/ZIP Co de Phone Number [facility] [address] [place] [address], * HCG QUANT (SERUM)-CHORIONIC GONADOTROPIN (06/25/2019 2:59 AM SPECIAL EDUCATION BUS DRIVER) [facility] HCG QUANTITATIVE <1 0.0 - 6.0 MIU/ML 06/25/2019 3:39 AM SPECIAL EDUCATION BUS DRIVER [facility] Comment:NON- FEMALE 0-6 06/25/2019 2:59 AM SPECIAL EDUCATION BUS DRIVER Coyd Fonseca MD LABORATORY Final Resul t Performing Organization Address [facility]/ZIP Co de Phone Number [facility] [address] [place] [address], * (ABNORMAL) Blood gas, venous (06/25/2019 2:59 AM SPECIAL EDUCATION BUS DRIVER) [facility] O2 SAT VENOUS 82(H) 40 - 70 % 06/25/2019 3:10 AM [facility] PH VENOUS 7.48(H) 7.35 - 7.45 06/25/2019 3:10 AM [facility] PCO2 VENOUS 29.2(L) 41.0 - 51.0 MMHG 06/25/2019 3:10 AM [facility] PO2 VENOUS 48.0(H) 20.0 - 40.0 MM HG 06/25/2019 3:10 AM SPECIAL EDUCATION BUS DRIVER [facility] BASE DEFICIT VENOUS 0.3 MMOL/L 06/25/2019 3:10 AM [facility] BICARB VENOUS 21.7(L) 22.0 - 29.0 MMOL/L 06/25/2019 3:10 AM [facility] TCO2 22.6(L) 25.0 - 29.0 MMOL/L 06/25/2019 3:10 AM [facility] LITER FLOW ROOM AIR 06/25/2019 3:02 AM [facility] Blood specimen (specimen) 06/25/2019 2:59 AM [employer] EDUCATION BUS DRIVER Cody Fonseca MD LABORATORY Final Resul t [facility] [address] [place] [address], * (ABNORMAL) COMPREHENSIVE METABOLIC PANEL (06/25/2019 2:59 AM SPECIAL EDUCATION BUS DRIVER) SODIUM S/P/B 138 136 - 145 MMOL/L 06/25/2019 3:39 AM [facility] POTASSIUM S/P/B 3.9 3.5 - 5.1 MMOL/L 06/25/2019 3:39 AM [facility] CHLORIDE S/P/B 99 98 - 107 MMOL/L 06/25/2019 3:39 AM [facility] CO2 21.7 21.0 - 32.0 MMOL/L 06/25/2019 3:39 AM [facility] GLUCOSE 305(H) 70 - 99 MG/DL 06/25/2019 3:39 AM [facility] Comment: FASTING GLUCOSE 100 TO 125 MG/DL IS CONSISTENT WITH IMPAIRED FASTING GLUCOSE. FASTING GLUCOSE >125 MG/DL IS CONSISTENT WITH DIABETES. RANDOM GLUCOSE >200 MG/DL WITH HYPERGLYCEMIC SYMPTOMS IS CONSISTENT WITH DIABETES. PER ADA GUIDELINES BUN 1(L) 6 - 24 MG/DL 06/25/2019 3:39 AM [facility] CREATININE S/P/B 0.66 0.55 - 1.02 MG/DL 06/25/2019 3:39 AM [facility] CALCIUM S/P/B 8.5 8.4 - 10.5 MG/DL 06/25/2019 3:39 AM [facility] BILIRUBIN TOTAL S/P/B 0.9 0.2 - 1.0 MG/DL 06/25/2019 3:39 AM [facility] Comment: THIS ASSAY IS NOT RECOMMENDED FOR PATIENTS UNDERGOING TREATMENT WITH ELTROMBOPAG DUE TO THE POTENTIAL FOR FALSELY ELEVATED RESULTS. ALKALINE PHOSPHATASE S/P/B 75 52 - 144 U/L 06/25/2019 3:39 AM [facility] AST 12(L) 15 - 37 U/L 06/25/2019 3:39 AM [facility] ALT 14 14 - 59 U/L 06/25/2019 3:39 AM [facility] TOTAL PROTEIN S/P/B 7.1 6.4 - 8.2 G/DL 06/25/2019 3:39 AM [facility] ALBUMIN S/P/B 3.8 3.4 - 5.0 G/DL 06/25/2019 3:39 AM [facility] ANION GAP 17.3(H) 5.0 - 15.0 MMOL/L 06/25/2019 3:39 AM [facility] OSMOLALITY (CALC) 293 MOSM/KG 020 3:39 AM [facility] Comment:REFERENCE RANGE NOT ESTABLISHED EGFR NON-AFR. AMER. >90 >89 ML/MIN/1. 73 M2 06/25/2019 3:39 AM [facility] EGFR AFR. AMER. >90 >89 ML/MIN/1. 73 M2 06/25/2019 3:39 AM [facility] GFR NOTES GFR REFERENCE S: 06/25/2019 3:39 AM [facility] Comment: THE ESTIMATED GFR IS CALCULATED USING THE 2009 CKD-EPI EQUATION. THE FOLLOWING CATEGORIES FOR GRADING RENAL FUNCTION ARE RECOMMENDED BY THE INTERNATIONAL SOCIETY OF NEPHROLOGY (KDIGO 2012 CLINICAL PRACTICE GUIDELINE). G1,NORMAL OR HIGH: >89 ml/min/1.73 m2 G2,MILDLY DECREASED: 60-89 ml/min/1.73 m2 G3A,MILDLY TO MODERATELY DECREASED: 45-59 ml/min/1.73 m2 G3B,MODERATELY TO SEVERELY DECREASED: 30-44 ml/min/1.73 m2 G4,SEVERELY DECREASED: 15-29 ml/min/1.73 m2 G5,KIDNEY FAILURE: <15 ml/min/1.73 m2 06/25/2019 2:59 AM SPECIAL EDUCATION BUS DRIVER us Cody Fonseca MD LABORATORY Final Resul t [facility] [address] [place] [address], * (ABNORMAL) CBC W/DIFF AUTOMATED (06/25/2019 2:59 AM SPECIAL EDUCATION BUS DRIVER) WBC 11.8(H) 4.5 - 10.8 x10'3/uL 06/25/2019 3:10 AM [facility] RBC 4.78 4.10 - 5.40 x10'6/uL 06/25/2019 3:10 AM [facility] HGB 14.0 12.0 - 16.0 G/DL 06/25/2019 3:10 AM [facility] HCT 41.1 36.0 - 47.0 % 06/25/2019 3:10 AM [facility] MCV 86.0 78.0 - 100.0 FL 06/25/2019 3:10 AM [facility] MCH 29.3 27.0 - 31.0 PG 06/25/2019 3:10 AM [facility] MCHC 34.1 33.0 - 36.0 G/DL 06/25/2019 3:10 AM [facility] RDW 13.5 11.5 - 14.5 % 06/25/2019 3:10 AM [facility] PLT 373(H) 150 - 350 x10'3/uL 06/25/2019 3:10 AM [facility] MPV 9.2 7.4 - 10.4 FL 06/25/2019 3:10 AM [facility] DIFFERENTIAL COMMENT NORMAL REFERENCE RANGE NOT ESTABLISHED FOR THE PROPORTIONAL LEUKOCYTE DIFFERENTIAL. 06/25/2019 3:10 AM [facility] SEG NEUTROPHILS 94.5 % 0 3:10 AM [facility] LYMPHOCYTES 2.0 % 06/25/2019 3:10 AM [employer]UCATION [employer] DRIVER [facility] MONOCYTES 2.9 % 06/25/2019 3:10 AM [facility] EOSINOPHILS 0.0 % 06/25/2019 3:10 AM [facility] BASOPHILS 0.2 % 06/25/2019 3:10 AM [facility] IMMATURE GRANS % 0.4 % 06/25/19 20 3:10 AM [employer] EDUCATION BUS DRIVER [facility] NRBC 0.0 % 06/25/2019 3:10 AM [facility] ABS. NEUTROPHILS 11.11(H) 1.60 - 8.30 x10'3/uL 06/25/2019 3:10 AM [facility] ABS. LYMPHOCYTES 0.24(L) 0.80 - 4.70 x10'3/uL 06/25/2019 3:10 AM [facility] ABS. MONOCYTES 0.34 0.00 - 1.50 x10'3/uL 06/25/2019 3:10 AM [facility] ABS. EOSINOPHILS 0.00 0.00 - 0.40 x10'3/uL 06/25/2019 3:10 AM [facility] ABS. BASOPHILS 0.02 0.00 - 0.20 x10'3/uL 06/25/2019 3:10 AM [facility] ABS. IMMATURE GRANULOCYTES 0.05(H) 0.00 - 0.03 x10'3/uL 06/25/2019 3:10 AM [facility] ABS. NUCLEATED RBC'S 0.00 0.00 x10'3/uL 06/25/2019 3:10 AM [facility] 06/25/2019 2:59 AM [employer] EDUCATION [employer] DRIVER us Cody Fonseca MD LABORATORY Final Resul t [facility] [address] [place] [address], * (ABNORMAL) POCT glucose (06/25/2019 2:48 AM SPECIAL EDUCATION BUS DRIVER) GLUCOSE POC 278(H) 70 - 99 MG/DL 06/25/2019 2:49 AM [employer]UCATION [employer] DRIVER [facility] ORDERS INTERFACE 06/25/2019 2:48 AM [employer] EDUCATION BUS DRIVER us Cody Fonseca MD POCT ORDERABLES - DEVICE Fi nal Result [facility] ORDERS INTERFACE US documented in this encounter Visit Diagnoses Diagnosis Vomiting- Primary Vomiting alone Vomiting Vomiting alone Dehydration Hyperglycemia Other abnormal glucose documented in this encounter Admitting Diagnoses Diagnosis Vomiting Vomiting alone documented in this encounter Administered Medications Inactive Administered Medications - up to 3 most recent administrations Medication Order MAR Action Action Date Dose Rate Site haloperidol lactate (HALDOL) injection 2 mg 2 mg, Intravenous, Once, 1 dose, On 06/25/19 at 0500, IF giving IV, do not give faster than 5 mg/min IV; observe for hypotension. Given 06/25/2019 5:15 AM [employer]UCATION [employer] DRIVER 2 mg insulin regular (NOVOLIN R/HUMULIN R) injection 0-15 Units 0-15 Units, Subcutaneous, 4 times daily before meals and nightly, First dose on 06/25/19 at 0700, Until Discontinued, Blood Glucose: (Less than 70, Notify Provider and Initiate Hypoglycemia Protocol) (150 - 199, administer 0 units) (200 - 219, administer 3 units) (220 - 239, administer 5 units) (240 - 259, administer 6 units) (260 - 279, administer 8 units) (280 - 299, administer 10 units) (300 - 349, administer 12 units) (350 - 399, administer 15 units) (Greater than 400 - Notify Provider) Given 06/25/2019 12:22 PM [employer]UCATION [employer] DRIVER 6 Units Left Arm Given 06/25/2019 9:18 AM [employer] EDUCATION BUS DRIVER 8 Units Ri ght Arm insulin regular (NOVOLIN R/HUMULIN R) injection 10 Units 10 Units, Subcutaneous, Once, 1 dose, On 06/25/19 at 0415, For sliding scale, activate Sliding Scale Insulin order set. Given 06/25/2019 4:38 AM [employer] EDUCATION [employer] DRIVER 10 Units Left Lower Abdomen metoclopramide (REGLAN) 5 MG/ML injection 1 dose, Starting on 06/25/19 at 0431, Until 06/25/19 at 0439, Created by cabinet override metoclopramide (REGLAN) injection 10 mg 10 mg, Intravenous, Once, 1 dose, On 06/25/19 at 0430, Administer IV over 1-2 minutes Given 06/25/2019 4:39 AM [employer]UCATION [employer] DRIVER 10 mg ondansetron (ZOFRAN) 4 MG/2ML injection 1 dose, Starting on 06/25/19 at 0431, Until 06/25/19 at 0439, Created by cabinet override ondansetron (ZOFRAN) injection 4 mg 4 mg, Intravenous, Once, 1 dose, On 06/25/19 at 0300, IV push over 2-5 minutes. Given 06/25/2019 2:58 AM [employer]UCATION BUS DRIVER 4 mg ondansetron (ZOFRAN) injection 4 mg 4 mg, Intravenous, Once, 1 dose, On 06/25/19 at 0430, IV push over 2-5 minutes. Given 06/25/2019 4:39 AM [employer] EDUCATION [employer] DRIVER 4 mg ondansetron (ZOFRAN) injection 4 mg 4 mg, Intravenous, Every 4 hours PRN, Nausea, Starting on 06/25/19 at 1158, Until 06/25/19 at 1846, IV push over 2-5 minutes. sodium chloride 0.9% bolus infusion SOLN 1,000 mL 1,000 mL, Intravenous, Administer over 15 Minutes, Bolus (Once), 1 dose, On 06/25/19 at 0300 New Bag 06/25/2019 2:58 AM [employer] EDUCATION BUS DRIVER 1,000 mLs sodium chloride 0.9% bolus infusion SOLN 1,000 mL 1,000 mL, Intravenous, Administer over 15 Minutes, Bolus (Once), 1 dose, On 06/25/19 at 0415 New Bag 06/25/2019 4:39 AM [employer] EDUCATION BUS DRIVER 1,000 mLs sodium chloride 0.9% infusion at 125 mL/hr, Intravenous, Continuous, Starting on 06/25/19 at 0630, Until 06/25/19 at 1829 New Bag 06/25/2019 4:06 PM [employer] EDUCATION BUS DRIVER 125 mL/hr New Bag 06/25/2019 6:33 AM [employer] EDUCATION BUS DRIVER 125 mL/hr documented in this encounter Active and Recently Administered Medications Times are shown in SPECIAL EDUCATION BUS DRIVER. Scheduled Medication Order 06/23/2019 06/24/2019 06/25/2019 haloperidol lactate (HALDOL) injection 2 mg (COMPLETED) 2 mg, Intravenous, Once, 1 dose, On 06/25/19 at 0500, IF giving IV, do not give faster than 5 mg/min IV; observe for hypotension. 0515 (Given - Provid er: Krystyna Salvador, MARY) insulin glargine (LANTUS) injection 10 Units 10 Units, Subcutaneous, Nightly at bedtime, First dose on 06/25/19 at 2100, Until Discontinued insulin regular (NOVOLIN R/HUMULIN R) injection 0-15 Units 0-15 Units, Subcutaneous, 4 times daily before meals and nightly, First dose on 06/25/19 at 0700, Until Discontinued, Blood Glucose: (Less than 70, Notify Provider and Initiate Hypoglycemia Protocol) (150 - 199, administer 0 units) (200 - 219, administer 3 units) (220 - 239, administer 5 units) (240 - 259, administer 6 units) (260 - 279, administer 8 units) (280 - 299, administer 10 units) (300 - 349, administer 12 units) (350 - 399, administer 15 units) (Greater than 400 - Notify Provider) 0918 (Given - Provid er: Amanda Jimenez RN)1222 (Given - Provider: Amanda Jimenez RN)1600 (Canceled Entry - Provider: Automatic Discharge Provider - Comment: Automatically canceled at discontinue of medication order) insulin regular (NOVOLIN R/HUMULIN R) injection 10 Units (COMPLETED) 10 Units, Subcutaneous, Once, 1 dose, On 06/25/19 at 0415, For sliding scale, activate Sliding Scale Insulin order set. 0438 (Given - Provid er: Krystyna Salvador, MARY) metoclopramide (REGLAN) injection 10 mg (COMPLETED) 10 mg, Intravenous, Once, 1 dose, On 06/25/19 at 0430, Administer IV over 1-2 minutes 0439 (Given - Provid er: Krysytna Salvador, MARY) ondansetron (ZOFRAN) injection 4 mg (COMPLETED) 4 mg, Intravenous, Once, 1 dose, On 06/25/19 at 0300, IV push over 2-5 minutes. 0258 (Given - Provid er: Marjan Hunter, MARY) ondansetron (ZOFRAN) injection 4 mg (COMPLETED) 4 mg, Intravenous, Once, 1 dose, On 06/25/19 at 0430, IV push over 2-5 minutes. 0439 (Given - Provid er: Krystyna Salvador, RN) sodium chloride 0.9% bolus infusion SOLN 1,000 mL (COMPLETED) 1,000 mL, Intravenous, Administer over 15 Minutes, Bolus (Once), 1 dose, On 06/25/19 at 0300 0258 (New Bag - Prov ider: Marjan Hunter, MARY)0754 (Infusion Stop Time - Provider: Amanda Jimenez, MARY) sodium chloride 0.9% bolus infusion SOLN 1,000 mL (COMPLETED) 1,000 mL, Intravenous, Administer over 15 Minutes, Bolus (Once), 1 dose, On 06/25/19 at 0415 0439 (New Bag - Prov ider: Krystyna Salvador, MARY)0754 (Infusion Stop Time - Provider: Amanda Jimenez, MARY) Continuous Medication Order 06/23/2019 06/24/2019 06/25/2019 sodium chloride 0.9% infusion at 125 mL/hr, Intravenous, Continuous, Starting on 06/25/19 at 0630, Until 06/25/19 at 1829 0633 (New Bag - Prov ider: Chico Stein, MARY)1605 (Infusion Stop Time - Provider: Herlinda Arana, RN)1606 (New Bag - Provider: Herlinda Arana, MARY) PRN Medication Order 06/23/2019 06/24/2019 06/25/2019 ondansetron (ZOFRAN) injection 4 mg 4 mg, Intravenous, Every 4 hours PRN, Nausea, Starting on 06/25/19 at 1158, Until 06/25/19 at 1846, IV push over 2-5 minutes. documented in this encounter Care Teams Emergency Medicine Relationship Specialty Start Date End Date Carrie Joseph PA-C PCP - General PHYSICIAN SR. OPERATIONS MANAGER 01/11/19 documented as of this encounter
--- OUTSIDE RECORDS SUMMARY | 2024-05-10 18:08 | XMS_ITS | Encounter Summary ---
Author Organization [facility] Address [address] [place] [address]. [place] [address] [place] [address] Care Team Providers Care Criminal Researcher Name Role Phone Unavailable Primary Care Provider Unavailabl e Encounter Details Date Type Department Care Team (Late st Contact Info) Description 01/07/2017 Orders [place] [address] , Generic Conversion, Social History [...] Procedure Name Priority Date/Time Associated Diagnosis Comments HEPATIC FUNCTION PANEL STAT 01/07/2017 1:54 PM CDT documented in this encounter Results * HEPATIC FUNCTION PANEL (01/07/2017 1:54 PM CDT) TOTAL PROTEIN S/P/B 7.7 6.0 - 8.3 G/DL 01/07/2017 1:25 PM CDT [facility] ALBUMIN S/P/B 4.2 3.4 - 4.9 G/DL 01/07/2017 1:25 PM CDT [facility] BILIRUBIN TOTAL S/P/B 0.8 0.2 - 1.2 MG/DL 01/07/2017 1:25 PM CDT [facility] BILIRUBIN DIRECT S/P/B 0.2 0.0 - 0.5 MG/DL 01/07/2017 1:25 PM CDT [facility] Comment:MILD HEMOLYSIS, RESU LT MAY BE AFFECTED. ALKALINE PHOSPHATASE S/P/B 89 52 - 144 U/L 01/07/2017 1:25 PM CDT [facility] AST 23 5 - 35 U/L 01/07/2017 1:25 PM CDT [facility] Comment:RESULT QUESTIONABLE DUE TO HEMOLYSIS, CONSIDER RECOLLECTION. ALT 13 0 - 55 U/L 01/07/2017 1:25 PM CDT [facility] PLASMA SPECIMEN / Unknown 01/07/2017 1:54 PM CDT 01/07/2017 12:58 PM CDT us Generic Conversion Md [facility] Final R esult [facility] [address] [place] [address], [place] [phone] [id number] documented in this encounter Visit Diagnoses Not on filedocumented in this encounter
--- OUTSIDE RECORDS SUMMARY | 2024-05-10 18:08 | XMS_ITS | Encounter Summary ---
Author Organization [facility] Address [address] [place] [address]. [place] [address] [place] [address] Care Team Providers Care Assistant Golf Course Superintendent Name Role Phone Unavailable Primary Care Provider Unavailabl e Encounter Details Date Type Department Care Team (Latest Contact Info) Description 10/28/2017 Abstract [facility] Social History Tobacco Use [...]
--- OUTSIDE RECORDS SUMMARY | 2024-05-10 18:08 | XMS_ITS | Encounter Summary ---
Author Organization [facility] Address [address] [place] [address]. [place] [address] [place] [address] Care Team Providers Care Towerman Name Role Phone EmeraldCarrie moreland Josette BETTS Primary Care Provider Reason for Visit * Auth/Cert Specialty Diagnoses / Procedures Referred By Rachael frey Referred To Contact Diagnoses MISSED AB Procedures SURG TX MISSED ,1ST TRIMESTER DILATATION & CURETTAGE SUCTION Referral ID Status Reason Start Date Expiration Date Visits Re quested Visits Authorized [id number] 1 1 Encounter Details Date Type Department Care Team (Late st Contact Info) Description 04/24/2020 10:05 AM [facility] - 04/24/2020 11:08 AM [facility] Surgery [facility] OR - OSC [address] [place] [address] Ector Smith MD [address] [place] [address] DILATATION & CURETTAGE SUCTION Surgery Details Date/Time Status Location OR Service Patient Class Case Class Case Type Trauma Case? 04/24/2020 10:05 AM Posted [facility] OR DS 2 Gynecology Short Stay/Outpat ient Surgery E - Elective No Panel 1 Procedure LRB Anes Op Region Wound Class Comments DILATATION & CURETTAGE SUCTION N/A General Uterus Clean Contaminated Surgeon Surgeon Role Service Panel Ector Smith MD Primary Gynecology 1 Saumya Faulkner MD Resident - Assisting Gynecology 1 documented in this encounter Social History Tobacco [...] COVID-19? No / Unsure 04/24/2020 7:52 AM [facility] documented as of this encounter Last Filed Vital Signs Vital Sign Reading Time Taken Comments Blood Pressure 94/49 04/24/2020 11:05 AM [facility] Pulse 85 04/24/2020 11:05 AM [facility] Temperature 36.2 ??C (97.2 ??F) 04/24/2020 11:[address] Respiratory Rate 18 04/24/2020 11:05 AM [facility] Oxygen Saturation 100% 04/24/2020 11:05 AM [facility] Inhaled Oxygen Concentration - - Weight 69.9 kg (154 lb) 04/22/2020 10:21 AM [facility] Height 154.9 cm (5' 1 ) 04/22/2020 10:21 AM [facility] Body Mass Index 29.1 04/22/2020 10:21 AM [facility] documented in this encounter Functional Status * RETIRED Are you deaf or do you have serious difficulty hearing Answer Date of Assessment Author Status No 06/25/2019 6:34 AM [facility] Activ e * RETIRED Are you blind or do you have serious difficulty seeing, even when wearing glasses? Answer Date of Assessment Author Status No 06/25/2019 6:34 AM [facility] Activ e * Do you have serious difficulty walking or climbing stairs? Answer Date of Assessment Author Status No 06/25/2019 6:34 AM [facility] Obdulia Guerrier RN Active * Do you have difficulty dressing or bathing? Answer Date of Assessment Author Status No 06/25/2019 6:34 AM [facility] Obdulia Guerrier RN Active * Because of a physical, mental, or emotional condition, do you have difficulty doing errands alone such as visiting a doctor's office or shopping? Answer Date of Assessment Author Status No 06/25/2019 6:34 AM [facility] Obdulia Guerrier RN Active documented as of this encounter Mental Status * Because of a physical, mental, or emotional condition, do you have serious difficulty concentrating, remembering, or making decisions? Answer Entry Date Author Status No 06/25/2019 6:34 AM [facility] Obdulia Guerrier RN Active documented in this encounter Discharge Instructions * Discharge Instructions* Cl You RN - 04/24/2020 11:20 AM [facility] ANESTHESIA ADULT DISCHARGE INSTRUCTIONS The effects of the medication may last 24 hours. You SHOULD NOT: *Drive a vehicle or operate hazardous machinery *Drink any alcoholic beverages *Sign any legal documents or make important decisions *Take medication that causes drowsiness (sleeping pills/tranquilizers) Avoid strenuous activity Return home by a responsible person. Someone should stay with you for the remainder of they day (6-8 hours) as you may be slightly dizzy or forgetful You may experience tenderness and/or redness of the IV site due the medication used in sedation. Ifthis persists more than 24 hours, notify your physician Discharge Instructions: Take 1 tablet (600 mg total) of ibuprofen by mouth every 6 (six) hours as needed for Pain. Follow-up with Dr. Smith in the first week of May Call for Temperature greater than 100.4 times 2, or Bleeding greater than 1 max pad per hour, or Abdominal pain not controlled on your pain medication. No work / school for 3 days No intercourse until bleeding subsides No Driving for at least 24 hours and until pain free Toradol given at 11am, next dose of ibuprofen at 5pm Can take tylenol at 2pm Follow up with Dr. Smith in the office during the first week of May 2020. SPECIALTY * Attachments The following attachments cannot be sent through Care Everywhere. * Dilation and Curettage (D and C) (Zambian) * Dilation and Curettage Discharge Instructions (Zambian) documented in this encounter Medications at Time of Discharge BASAGLANIKA BUITRAGOIKPEN 100 UNIT/ML injection (PEN)Indications :Diabetes Mellitus Inject [...] meal 1 documented as of this encounter H&P Notes * Saumya Faulkner MD - 04/24/2020 9:44 AM CST HISTORY AND PHYSICAL INTERVAL NOTE: I have reviewed Karina Menjivar History & Physical which was performed within the past 30 days. After examining Karina Menjivar, the following was not mentioned in the patient's H&P: Patient was hospitalized at [facility] on 04/11/20 for vomiting and found to be in DKA. Discharged on04/13 in stable condition. Insulin regimen was increased on discharge, and patient should follow-upwith endocrinology outpatient. Patient is feeling well this morning and has no acute concerns. Informed Consent Discussion: Potential benefits, risks, and side effects of the patient's procedure/surgery; the likelihood of the patient achieving his or her goals; and any potential problems that might occur during recuperation were discussed with the patient/family/personal printing supplies sales representative. Reasonable alternatives to the patient's proposed procedure/surgery including benefits, risks, and side effects related to the alternatives and the risks related to not receiving the proposed care were also discussed with the patient/family/personal printing supplies sales representative. Questions were answered and the patient/family/personal printing supplies sales representative verbalized understanding and desires to proceed. Cosigned by Ector Smith MD at 04/24/2020 11:53 AM [facility] SPECIALTY SPECIALTY documented in this encounter OR Notes * Op Note - Saumya Faulkner MD - 04/24/2020 11:09 AM CST Operative Report Patient Name: Karina Menjivar Date of : 1995 Admission Date: 04/24/2020 Date of Surgery: 04/24/2020 Preop Diagnosis: MISSED AB Postop Diagnosis: MISSED AB Procedure: Procedure(s) (LRB): DILATATION & CURETTAGE SUCTION (N/A) Attending Physician: Ector Smith MD Resident Physician: Saumya Faulkner MD Anesthesia: General EBL: 100 mL Findings: Normal appearing external genitalia, vagina, cervix. Products of conception identified insuction tubing. Complications: None Specimens: Products of conception Disposition: Stable to post-op recovery Indications for the Procedure: Karina Menjivar is a 24-year-old female dated as 16w0d gestational age by LMP but fetus measuring about 6 weeks presented with a missed . Surgical Risks: The patient was informed of the risks and benefits of the procedure. These risks include, but are not limited to, bleeding with possible need for blood transfusion, infection, injury to the vulva, vagina, cervix, or uterus. There are also general risks of surgery and anesthesia which includes small risk of PE, ND, stroke, or even . She voiced understanding and all questions were answered. The patient consented to the procedure. Description of the Procedure: Patient voided before procedure. Pre-op glucose noted to be 303, and patient was given 6 units of regular insulin. The patient was then taken to the operating room where a timeout was performed to confirm correct patient and correct procedure. The patient was given doxycycline as preoperative prophylactic antibiotics. General anesthesia was adequately established. The patient was then positioned on the operating table in dorsal lithotomy position with the legs supported using stirrups. Pressurepoints were padded and a ángel hugger was placed to maintain control of core body temperature. The patient was then prepped and draped in usual sterile fashion. Another timeout was performed again to confirm correct patient and correct procedure. Operative Technique: A bivalve speculum was inserted into the vagina and the cervix was visualized and grasped using thesingle tooth tenaculum. The cervix was then adequately dilated up to 20 norwegian using Roberto dilators for the introduction of the suction curette. Suction was set to a pressure of 60. The suction curette was advanced to the fundus. Suction was then applied and curette was rotated in a circular fashionas the curette was withdrawn. Suction was relieved at the internal os and the curette was again advanced to the fundus. This was repeated 4 times. When no further products were obtained, the suction curette was withdrawn, and a sharp curette was advanced to the fundus. The uterus was curetted in a systematic manner covering all surfaces until a gritty texture was noted throughout. The suction curette was then introduced once final time and the uterine cavity was cleared of any remaining production or curettings. The suction curette was then withdrawn and the single tooth tenaculum was removedfrom the anterior lip of the cervix. Good hemostasis was noted. The bivalve speculum was then removed from the vagina. At the end of the procedure all needles, sponges, and instruments were accounted for and all countswere correct. The patient tolerated procedure well and was transported to the recovery room in stable condition. Ector Smith MD was present and active for the entire procedure. Saumya Faulkner MD 04/24/2020 11:09 AM Cosigned by Ector Smith MD at 04/24/2020 11:54 AM [facility] SPECIALTY SPECIALTY SPECIALTY Associated attestation - Ector Smith MD - 04/24/2020 11:54 AM [facility] I was present for the entirety of the procedure(s). * Brief Op Note - Saumya Faulkner MD - 04/24/2020 11:08 AM CST [facility] Brief Op HSHSDILATATION & CURETTAGE SUCTION Procedure Note Karina Menjivar 04/24/2020 1005 Procedure(s) (LRB): DILATATION & CURETTAGE SUCTION (N/A) Surgeon(s): MD Saumya Pat MD Invasive Manager: None Anesthesia: General Pre-Op Diagnosis: MISSED AB Post-Op Diagnosis: Same Findings: Normal appearing external genitalia, vagina, cervix. Products of conception identified insuction tubing. Estimated Blood Loss: 100 mL Specimens: ID Type Source Tests Collected by Time A : Products of Conception TISSUE PRODUCTS OF CONCEPTION PATHOLOGY Ector Smith MD 04/24/2020 1054 Saumya Faulkner MD Date: 04/24/2020 Time: 11:08 AM Cosigned by Ector Smith MD at 04/24/2020 11:53 AM [facility] SPECIALTY SPECIALTY SPECIALTY documented in this encounter Plan of Treatment Not on file documented as of this encounter Procedures Procedure Name Priority Date/Time Associated Diagnosis Comments POCT GLUCOSE - MCCORMICK DOCKED DEVICE Routine 04/24/2020 11:10 AM [facility] DILATATION & CURETTAGE SUCTION 04/24/2020 10:20 AM [facility] MISSED AB POCT GLUCOSE - MCCORMICK DOCKED DEVICE Routine 04/24/2020 9:58 AM [facility] TYPE & SCREEN Routine 04/24/2020 9:26 AM [facility] BASIC METABOLIC PANEL Routine 04/24/2020 9:26 AM [facility] CBC W/DIFF AUTOMATED Routine 04/24/2020 9:26 AM [facility] PATHOLOGY Routine 04/24/2020 12:00 AM [facility] documented in this encounter Results * (ABNORMAL) POCT glucose (04/24/2020 11:10 AM [facility]) GLUCOSE POC 226(H) 70 - 109 04/24/2020 11:12 AM [facility] 04/24/2020 11:1 0 AM [facility] us Ector Smith MD POCT ORDERABLES - DEVICE F inal Result Performing Organization Address City/[facility]/ZIP Co de Phone Number [facility] [address] [place] [address], [phone] * (ABNORMAL) POCT glucose (04/24/2020 9:58 AM [facility]) GLUCOSE POC 303(H) 70 - 109 04/24/2020 10:09 AM [facility] Comment:RN Notified 04/24/2020 9:58 AM [facility] Josef Smith MD POCT ORDERABLES - DEVICE F inal Result Performing Organization Address [facility] Co de Phone Number [facility] [address] [place] [address], [phone] * (ABNORMAL) CBC W/DIFF AUTOMATED (04/24/2020 9:26 AM [facility]) WBC 8.9 4.0 - 10.8 x10'3/uL 04/24/2020 9:45 AM [facility] RBC 4.23 4.10 - 5.40 x10'6/uL 04/24/2020 9:45 AM [facility] HGB 12.9 12.0 - 16.0 G/DL 04/24/2020 9:45 AM [facility] HCT 38.4 36.0 - 47.0 % 04/24/2020 9:45 AM [facility] MCV 90.8 78.0 - 100.0 FL 04/24/2020 9:45 AM [facility] MCH 30.5 27.0 - 31.0 PG 04/24/2020 9:45 AM [facility] MCHC 33.6 33.0 - 36.0 G/DL 04/24/2020 9:45 AM [facility] RDW 14.5 11.5 - 14.5 % 04/24/2020 9:45 AM [facility] PLT 399(H) 150 - 350 x10'3/uL 04/24/2020 9:45 AM [facility] MPV 9.0 7.4 - 10.4 FL 04/24/2020 9:45 AM [facility] ABS. NEUTROPHILS TOTAL 5.95 1.60 - 8.30 x10'3/uL 04/24/2020 9:45 AM [facility] ABS. LYMPHOCYTES 2.00 0.80 - 4.70 x10'3/uL 04/24/2020 9:45 AM [facility] ABS. MONOCYTES 0.76 0.00 - 1.50 x10'3/uL 04/24/2020 9:45 AM [facility] ABS. EOSINOPHILS 0.02 0.00 - 0.40 x10'3/uL 04/24/2020 9:45 AM [facility] ABS. BASOPHILS 0.03 0.00 - 0.20 x10'3/uL 04/24/2020 9:45 AM [facility] ABS. IMMATURE GRANULOCYTES 0.15(H) 0.00 - 0.03 x10'3/uL 04/24/2020 9:45 AM [facility] ABS. NUCLEATED RBC'S 0.00 0.0 x10'3/uL 04/24/2020 9:45 AM [facility] 04/24/2020 9:26 AM [facility] us d Josef Smith MD LABORATORY Final Resu lt [facility] [address] [place] [address], [phone] * (ABNORMAL) BASIC METABOLIC PANEL (04/24/2020 9:26 AM [facility]) SODIUM S/P/B 133(L) 136 - 145 MMOL/L 04/24/2020 10:27 AM [facility] POTASSIUM S/P/B 4.0 3.5 - 5.1 MMOL/L 04/24/2020 10:27 AM [facility] CHLORIDE S/P/B 99 98 - 107 MMOL/L 04/24/2020 10:27 AM [facility] CO2 27.3 21.0 - 32.0 MMOL/L 04/24/2020 10:27 AM [facility] GLUCOSE 270(H) 74 - 106 MG/DL 04/24/2020 10:27 AM [facility] BUN 10 7 - 18 MG/DL 04/24/2020 10:27 AM [facility] CREATININE S/P/B 0.48(L) 0.55 - 1.02 MG/DL 04/24/2020 10:27 AM [facility] CALCIUM S/P/B 8.9 8.5 - 10.1 MG/DL 04/24/2020 10:27 AM [facility] ANION GAP 6.7 5.0 - 15.0 MMOL/L 04/24/2020 10:27 AM [facility] Comment:REFERENCE RANGE NOT ESTABLISHED OSMOLALITY (CALC) 285 MOSM/KG 020 10:27 AM [facility] Comment:REFERENCE RANGE NOT ESTABLISHED EGFR NON-AFR. AMER. >90 >90 ML/MIN/1. 73 M2 04/24/2020 10:27 AM [facility] EGFR AFR. AMER. >90 >90 ML/MIN/1. 73 M2 04/24/2020 10:27 AM [facility] GFR NOTES GFR REFERENCE S: 04/24/2020 10:27 AM [facility] Comment: THE ESTIMATED GFR IS CALCULATED [...] ml/min/1.73 m2 G5,KIDNEY FAILURE: <15 ml/min/1.73 m2 04/24/2020 9:26 AM [facility] Ector Smith MD LABORATORY Final Resu lt Performing Organization Address [facility] de Phone Number [facility] [address] [place] [address], [phone] * TYPE & SCREEN - Verify expiration date is current (04/24/2020 9:26 AM [facility]) ABO/RH O POSITIVE 04/24/2020 10:26 AM [facility] ANTIBODY SCREEN NEGATIVE 04/24/2020 10:26 AM [facility] SAMPLE EXPIRATION 04/27/2020,2 359 04/24/2020 9:45 AM [facility] 04/24/2020 9:26 AM [facility] us Ector Smith MD BLOOD BANK TEST ORDERABLES Final Result Performing Organization Address [facility] de Phone Number [facility] [address] [place] [address], [phone] * Pathology (04/24/2020 12:00 AM [facility]) PATHOLOGY [facility] ? Department of Laboratory Medicine ?[address] [facility] ?[place] [id number] ? , extension [phone] ? Pathology Report ? Surgical Pathology Report Name: KARINA MENJIVAR ? Specimen #: [id number] Age: 2 1995 (Age: 24) ?Location: [facility] Sex: F ?Procedure Date: 04/24/2020 Hospital #: [id number] ?Date Received: 04/24/2020 Date Reported: 04/29/2020 Provider: ECTOR SMITH MD Source: Products of conception Clinical History: Missed . Gross Description: Received in formalin, labeled with a patient label and as products of conception is a 6 x 4 x 2 cm aggregate of pieces of pink-castaneda tissue intermixed with a small amount of clotted blood. ??The tissue is quite firm. ??No parts are grossly identified. ??[employer] tissue is submitted in cassettes 1 through 3. Please note: ??The specimen is accompanied by a disposition form. FINAL DIAGNOSIS: PRODUCTS OF CONCEPTION, CURETTAGE: ? - DECIDUAL TISSUE WITH DEGENERATIVE CHANGES AND CHORIONIC VILLI IDENTIFIED. Electronically Signed Out ? Kyrie Ocampo M.D. [facility] Tissue specimen (specimen) PRODUCTS OF CONCEPTION TISSUE SPECIMEN / Unknown 04/24/2020 10:54 AM [facility] Josef Smith MD PATHOLOGY/CYTOLOGY ORDERAB LES Final Result [facility] [address] [place] [address], [place] [phone] documented in this encounter Visit Diagnoses Not on filedocumented in this encounter Administered Medications Inactive Administered Medications - up to 3 most recent administrations Medication Order MAR Action Action Date Dose Rate Site acetaminophen (TYLENOL) tablet 650 mg 650 mg, Oral, Once as needed, Mild pain (Scale 1 - 3), 1 dose, Starting on Wed04/24/20 at 1118, Until Wed04/24/20 at 1403, Maximum dose of acetaminophen is 4000 mg from all sources in 24 hours., PACU doxycycline hyclate (VIBRA-TABS) tablet 100 mg 100 mg, Oral, Once, 1 dose, On Wed04/24/20 at 0930, Order reads 100mg pre-op and 200mg post-op before disch home, Pre-Op Given 04/24/2020 9:29 AM [facility] 100 mg doxycycline hyclate (VIBRA-TABS) tablet 200 mg 200 mg, Oral, Once, 1 dose, On Wed04/24/20 at 1145, Post-Op Given 04/24/2020 11:49 AM [facility] 200 mg fentaNYL (SUBLIMAZE) injection 25 mcg 25 mcg, Intravenous, Every 5 min PRN, Other, Moderate pain (Scale 4-7), 4 doses, Starting on Wed04/24/20 at 1118, Until Wed04/24/20 at 1403, Maximum cumulative dose 100 mcg. Do not administer if patient is overly sedated, SpO2 less than 90%, or Respiratory Rate less than 12. If more than one IV analgesic is ordered per pain level, use in this order: fentaNYL, morphine, HYDROmorphone. If desired pain control is not reached, move to next ordered medication at next dosing interval., PACU HYDROmorphone (DILAUDID) injection 0.4 mg 0.4 mg, Intravenous, Every 15 min PRN, Severe pain (Scale 8 - 10), 5 doses, Starting on Wed04/24/20 at 1118, Until Wed04/24/20 at 1403, Maximum cumulative dose 2 mg. Do not administer if patient is overly sedated, SpO2 less than 90%, or Respiratory Rate less than 12. If more than one IV analgesic is ordered per pain level, use in this order: fentaNYL, morphine, HYDROmorphone. If desired pain control is not reached, move to next ordered medication at next dosing interval., PACU insulin regular (NOVOLIN R/HUMULIN R) injection 6 Units 6 Units, Subcutaneous, Once, 1 dose, On Wed04/24/20 at 1030, For sliding scale, activate Sliding Scale Insulin order set., Pre-Op Given 04/24/2020 10:07 AM [facility] 6 Units Left Arm lactated ringers infusion at 10 mL/hr, Intravenous, Continuous, Starting on Wed04/24/20 at 0845, Until Wed04/24/20 at 1403, Pre-Op New Bag 04/24/2020 9:34 AM [facility] 10 mL/hr ondansetron (ZOFRAN) injection 4 mg 4 mg, Intravenous, Every 8 hours PRN, Nausea, Starting on Wed04/24/20 at 0828, Until Wed04/24/20 at 1100, IV push over 2-5 minutes., Pre-Op Given 04/24/2020 9:30 AM [facility] 4 mg ondansetron (ZOFRAN) injection 4 mg 4 mg, Intravenous, Once as needed, Nausea, Vomiting, 1 dose, Starting on Wed04/24/20 at 1118, Until Wed04/24/20 at 1403, Administer slowly over 3-4 minutes. If more than one antiemetic is ordered, use in this order: ondansetron, diphenhydramine, metoclopramide, haloperidol, promethazine. If nausea / vomiting still not controlled, move to next ordered medication., PACU documented in this encounter Active and Recently Administered Medications Times are shown in [facility]. Scheduled Medication Order 04/22/2020 04/23/2020 04/24/2020 doxycycline hyclate (VIBRA-TABS) tablet 100 mg (COMPLETED) 100 mg, Oral, Once, 1 dose, On Wed04/24/20 at 0930, Order reads 100mg pre-op and 200mg post-op before disch home, Pre-Op 0929 (Given - Provid er: Desirae Jones RN) doxycycline hyclate (VIBRA-TABS) tablet 200 mg (COMPLETED) 200 mg, Oral, Once, 1 dose, On Wed04/24/20 at 1145, Post-Op 1149 (Given - Provid er: Cl You RN) insulin regular (NOVOLIN R/HUMULIN R) injection 6 Units (COMPLETED) 6 Units, Subcutaneous, Once, 1 dose, On Wed04/24/20 at 1030, For sliding scale, activate Sliding Scale Insulin order set., Pre-Op 1007 (Given - Provid er: Desirae Jones RN) Continuous Medication Order 04/22/2020 04/23/2020 04/24/2020 lactated ringers infusion at 10 mL/hr, Intravenous, Continuous, Starting on Wed04/24/20 at 0845, Until Wed04/24/20 at 1403, Pre-Op 0934 (New Bag - Prov ider: Desirae Jones RN)1035 (Anesthesia Volume Adjustment - Provider: Charisma Yeager CRNA)1102 (Anesthesia Volume Adjustment - Provider: Charisma Yeager CRNA) PRN Medication Order 04/22/2020 04/23/2020 04/24/2020 acetaminophen (TYLENOL) tablet 650 mg 650 mg, Oral, Once as needed, Mild pain (Scale 1 - 3), 1 dose, Starting on Wed04/24/20 at 1118, Until Wed04/24/20 at 1403, Maximum dose of acetaminophen is 4000 mg from all sources in 24 hours., PACU fentaNYL (SUBLIMAZE) injection 25 mcg 25 mcg, Intravenous, Every 5 min PRN, Other, Moderate pain (Scale 4-7), 4 doses, Starting on Wed04/24/20 at 1118, Until Wed04/24/20 at 1403, Maximum cumulative dose 100 mcg. Do not administer if patient is overly sedated, SpO2 less than 90%, or Respiratory Rate less than 12. If more than one IV analgesic is ordered per pain level, use in this order: fentaNYL, morphine, HYDROmorphone. If desired pain control is not reached, move to next ordered medication at next dosing interval., PACU HYDROmorphone (DILAUDID) injection 0.4 mg 0.4 mg, Intravenous, Every 15 min PRN, Severe pain (Scale 8 - 10), 5 doses, Starting on Wed04/24/20 at 1118, Until Wed04/24/20 at 1403, Maximum cumulative dose 2 mg. Do not administer if patient is overly sedated, SpO2 less than 90%, or Respiratory Rate less than 12. If more than one IV analgesic is ordered per pain level, use in this order: fentaNYL, morphine, HYDROmorphone. If desired pain control is not reached, move to next ordered medication at next dosing interval., PACU ondansetron (ZOFRAN) injection 4 mg (CANCELED) 4 mg, Intravenous, Every 8 hours PRN, Nausea, Starting on Wed04/24/20 at 0828, Until Wed04/24/20 at 1100, IV push over 2-5 minutes., Pre-Op 0930 (Given - Provid er: Desirae Jones RN) ondansetron (ZOFRAN) injection 4 mg 4 mg, Intravenous, Once as needed, Nausea, Vomiting, 1 dose, Starting on Wed04/24/20 at 1118, Until Wed04/24/20 at 1403, Administer slowly over 3-4 minutes. If more than one antiemetic is ordered, use in this order: ondansetron, diphenhydramine, metoclopramide, haloperidol, promethazine. If nausea / vomiting still not controlled, move to next ordered medication., PACU documented in this encounter Care Teams Towerman Relationship Specialty Start Date End Date Carrie Joseph PA-C PCP - General PHYSICIAN HVAC MAINTENANCE TECHNICIAN 01/11/19 documented as of this encounter
--- OUTSIDE RECORDS SUMMARY | 2024-05-10 18:08 | XMS_ITS | Encounter Summary ---
Author Organization [facility] Address [address] [place] [address]. [place] [address] [place] [address] Care Team Providers Care Front Office Attendant Name Role Phone Unavailable Primary Care Provider Unavailabl e Encounter Details Date Type Department Care Team (Late st Contact Info) Description 01/07/2017 Orders Only ANY CONVERSION ONE [place], [place] [id number] , Generic Conversion, Social History Tobacco Use [...] Procedure Name Priority Date/Time Associated Diagnosis Comments THYROID STIM HORMONE TSH TIMED 01/07/2017 3:14 PM CDT documented in this encounter Results * THYROID STIM HORMONE, TSH (01/07/2017 3:14 PM CDT) TSH 0.833 0.35 - 4.94 uIU/ML 01/07/2017 2:58 PM CDT [facility] SERUM OR PLASMA SPECIMEN / Unknown 01/07/2017 3:14 PM CDT 01/07/2017 2:15 PM CDT us Generic Conversion Md [facility] Final R esult [facility] [address] [place] [address], [id number] documented in this encounter Visit Diagnoses Not on filedocumented in this encounter
--- OUTSIDE RECORDS SUMMARY | 2024-05-10 18:08 | XMS_ITS | Encounter Summary ---
Author Organization [facility] Address [address] [place] [address]. [place] [address] [place] [address] Care Team Providers Care Renal Case Manager Name Role Phone Jake Carrie Finch PA-C Primary Care Provider Encounter Details Date Type Department Care Team (Latest Contact Info) Description 04/01/2020 Scan [facility] Scanned, Documents Social History Tobacco Use Types Packs/Day Years [...] Assessment Author Status No 06/25/2019 6:34 AM EMERGENCY MEDICINE PHYSICIAN Activ e * RETIRED Are you blind or do you have serious difficulty seeing, even when wearing glasses? Answer Date of Assessment Author Status No 06/25/2019 6:34 AM EMERGENCY MEDICINE PHYSICIAN Activ e * Do you have serious [...] on filedocumented in this encounter Care Teams Renal Case Manager Relationship Specialty Start Date End Date Carrie Joseph PA-C PCP - General PHYSICIAN MEMBERSHIP SALES ADVISOR 01/11/19 documented as of this encounter
--- OUTSIDE RECORDS SUMMARY | 2024-05-10 18:08 | XMS_ITS | Encounter Summary ---
Author Organization [facility] Address [address] [place] [address]. [place] [address] [place] [address] Care Team Providers Care Clinical Manager Name Role Phone Unavailable Primary Care Provider Unavailabl e Encounter Details Date Type Department Care Team (Late st Contact Info) Description 01/07/2017 Orders [place] [address] , Generic Conversion, Social History Tobacco Use [...] Procedure Name Priority Date/Time Associated Diagnosis Comments LACTIC ACID STAT 01/07/2017 1:54 PM CDT documented in this encounter Results * LACTIC ACID (01/07/2017 1:54 PM CDT) LACTIC ACID VENOUS 1.4 0.5 - 2.0 MMOL/L 01/07/2017 1:19 PM CDT [facility] PLASMA SPECIMEN / Unknown 01/07/2017 1:54 PM CDT 01/07/2017 12:58 PM CDT us Generic Conversion Md [facility] Final R esult [facility] [address] [place] [address], [id number] documented in this encounter Visit Diagnoses Not on filedocumented in this encounter
--- OUTSIDE RECORDS SUMMARY | 2024-05-10 18:08 | XMS_ITS | Encounter Summary ---
Author Organization [facility] Address [address] [place] [address]. [place] [address] [place] [address] Care Team Providers Care Deputy County Clerk Name Role Phone Unavailable Primary Care Provider Unavailabl e Encounter Details Date Type Department Care Team (Late st Contact Info) Description 06/08/2017 Orders [place] [address] , Generic Conversion, Social History Tobacco Use [...] Procedure Name Priority Date/Time Associated Diagnosis Comments CHLAMYDIA GC BY PCR TIMED 03/19/2016 2 :51 PM STRIKER OUT documented in this encounter Results * CHLAMYDIA GC BY PCR (03/19/2016 2:51 PM STRIKER OUT) N.GONORRHOEAE RNA TMA NEGATIVE NEGATIVE 03/19/2016 2:51 PM STRIKER OUT [facility] CHLAMYDIA PCR NEGATIVE NEGATIVE 03/19/2016 2:51 PM STRIKER OUT [facility] SPECIMEN SOURCE GENITAL 03/18/2016 5:00 PM STRIKER OUT [facility] 03/19/2016 8:0 0 AM STRIKER OUT us Generic Conversion Md [facility] MICROBIOLOGY - GENERAL ORDERABLES Final Result [facility] [address] [place] [address], [id number] documented in this encounter Visit Diagnoses Not on filedocumented in this encounter
--- OUTSIDE RECORDS SUMMARY | 2024-05-10 18:08 | XMS_ITS | Encounter Summary ---
Author Organization [facility] Address [address] [place] [address]. [place] [address] [place] [address] Care Team Providers Care Inspection Supervisor Name Role Phone Unavailable Primary Care Provider Unavailabl e Encounter Details Date Type Department Care Team (Late st Contact Info) Description 01/07/2017 Orders [place] [address] , Generic Conversion, Social History [...] Procedure Name Priority Date/Time Associated Diagnosis Comments DRUG SCREEN RAPID TIMED 01/07/2017 1:4 5 PM CDT documented in this encounter Results * DRUG SCREEN RAPID (01/07/2017 1:45 PM CDT) PHENCYCLIDINE PCP (U) NEGATIVE NEGATIVE 01/07/2017 2:44 PM CDT [facility] BENZODIAZEPINES SCREEN (U) NEGATIVE NEGATIVE 01/07/2017 2:44 PM CDT [facility] COCAINE METABOLITES (U) NEGATIVE NEGATIVE 01/07/2017 2:44 PM CDT [facility] AMPHETAMINE (U) NEGATIVE NEGATIVE 7 2:44 PM CDT [facility] CANNABINOIDS SCREEN (U) NEGATIVE NEGATIVE 01/07/2017 2:44 PM CDT [facility] OPIATE SCREEN (U) NEGATIVE NEGATIVE 017 2:44 PM CDT [facility] BARBITURATES SCREEN (U) NEGATIVE NEGATIVE 01/07/2017 2:44 PM CDT [facility] TRICYCLIC ANTIDEPRESSANT SCREEN (U) NEGATIVE NEGATIVE 01/07/2017 2:44 PM CDT [facility] URINE TOX COMMENT Unconfirmed screening results are to be used only for medical purposes. 01/07/2017 2:04 PM CDT [facility] CUTOFF CONCENTRATION (U) Cut-off Concentration for a positive result 01/07/2017 2:04 PM CDT [facility] Comment: Phencyclidine ? 25 ng/mL Benzodiazepines ? 300 ng/mL Cocaine ? 300 ng/mL Amphetamine ? 1000 ng/mL Cannabinoids ?50 ng/mL Opiates ? 300 ng/mL Barbiturates ?300 ng/mL TSA ? 1000 ng/mL URINE SPECIMEN / Unknown 01/07/2017 1:45 PM CDT 01/07/2017 2:22 PM CDT us Generic Conversion Md [facility] URINE ORDERABLES Final Result [facility] [address] [place] [address], [id number] documented in this encounter Visit Diagnoses Not on filedocumented in this encounter
--- OUTSIDE RECORDS SUMMARY | 2024-05-10 18:08 | XMS_ITS | Encounter Summary ---
Author Organization [facility] Address [address] [place] [address]. [place] [address] [place] [address] Care Team Providers Care Guzzler Builder Name Role Phone Unavailable Primary Care Provider Unavailabl e Encounter Details Date Type Department Care Team (Latest Contact Info) Description 10/25/2017 Abstract [facility] Social History Tobacco [...]
--- OUTSIDE RECORDS SUMMARY | 2024-05-10 18:08 | XMS_ITS | Encounter Summary ---
Author Organization [facility] Address [address] [place] [address]. [place] [address] [place] [address] Care Team Providers Care Tool And Die Maker Apprentice Name Role Phone Unavailable Primary Care Provider Unavailabl e Encounter Details Date Type Department Care Team (Late st Contact Info) Description 01/07/2017 Orders Only ANY CONVERSION ONE [place], [place] [id number] , Generic Conversion, Social History Tobacco Use [...] POCT GLUCOSE - MCCORMICK DOCKED DEVICE Routine 01/07/2017 3:34 PM CDT documented in this encounter Results * (ABNORMAL) POCT glucose (01/07/2017 3:34 PM CDT) GLUCOSE POC 191(H) 70 - 109 01/08/2017 3:15 PM CDT [facility] ORDERS INTERFACE WHOLE BLOOD SPECIMEN / Unknown 01/07/2017 3:34 PM CDT 01/08/2017 3:15 PM CDT us Generic Conversion Md [facility] POCT ORDERABLES - DEVIC E Final Result [facility] ORDERS INTERFACE US documented in this encounter Visit Diagnoses Not on filedocumented in this encounter
--- OUTSIDE RECORDS SUMMARY | 2024-05-10 18:08 | XMS_ITS | Encounter Summary ---
Author Organization [facility] Address [address] [place] [address]. [place] [address] [place] [address] Care Team Providers Care Forming Process Line Worker Name Role Phone Unavailable Primary Care Provider Unavailabl e Encounter Details Date Type Department Care Team (Late st Contact Info) Description 01/07/2017 Orders [place] [address] , Generic Conversion, Social History [...] Procedure Name Priority Date/Time Associated Diagnosis Comments TEST URINE TIMED 01/07/2017 1:45 PM CDT documented in this encounter Results * TEST URINE (01/07/2017 1:45 PM CDT) PREG TEST NEGATIVE 01/07/2017 1:03 PM CDT [facility] URINE SPECIMEN / Unknown 01/07/2017 1:45 PM CDT 01/07/2017 12:57 PM CDT us Generic Conversion Md [facility] URINE ORDERABLES Final Result [facility] [address] [place] [address], [id number] documented in this encounter Visit Diagnoses Not on filedocumented in this encounter
--- OUTSIDE RECORDS SUMMARY | 2024-05-10 18:08 | XMS_ITS | Encounter Summary ---
Author Organization [facility] Address [address] [place] [address]. [place] [address] [place] [address] Care Team Providers Care Child Guidance Counselor Name Role Phone Unavailable Primary Care Provider Unavailabl e Encounter Details Date Type Department Care Team (Late st Contact Info) Description 01/07/2017 Emergency [facility] Emergency [address] [place] [address] Franco Mesa DO Social History Tobacco Use Types Packs/Day Years Used Date Smoking Tobacco: Never Assessed Comments Unknown Sex and Gender Information Value Date Recorded Sex Assigned at Not on file Legal Sex Female 11:28 PM CDT Gender Identity Not on file Sexual Orientation Not on file documented as of this encounter Plan of Treatment Not on file documented as of this encounter Visit Diagnoses Diagnosis Type 1 diabetes mellitus with hyperglycemia (CMS/HCC HHS/HCC) Type I (juvenile type) diabetes mellitus without mention of complication, not stated as uncontrolled documented in this encounter
--- OUTSIDE RECORDS SUMMARY | 2024-05-10 18:08 | XMS_ITS | Encounter Summary ---
Author Organization [facility] Address [address] [place] [address]. [place] [address] [place] [address] Care Team Providers Care Counter Pocket Sewer Name Role Phone Unavailable Primary Care Provider Unavailabl e Encounter Details Date Type Department Care Team (Late st Contact Info) Description 01/07/2017 Orders [place] [address] , Generic Conversion, Social History [...] Procedure Name Priority Date/Time Associated Diagnosis Comments BASIC METABOLIC PANEL STAT 01/07/2017 1:54 PM CDT documented in this encounter Results * (ABNORMAL) BASIC METABOLIC PANEL (01/07/2017 1:54 PM CDT) SODIUM S/P/B 135 135 - 147 MMOL/L 01/07/2017 1:23 PM CDT [facility] POTASSIUM S/P/B 4.1 3.5 - 5.0 MMOL/L 01/07/2017 1:23 PM CDT [facility] Comment:MILD HEMOLYSIS, RESU LT MAY BE AFFECTED. CHLORIDE S/P/B 99 98 - 107 MMOL/L 01/07/2017 1:23 PM CDT [facility] CALCIUM S/P/B 9.6 8.4 - 10.2 MG/DL 01/07/2017 1:23 PM CDT [facility] CO2 19.0(L) 22 - 29 MMOL/L 01/07/2017 1:23 PM CDT [facility] GLUCOSE 242(H) 70 - 109 MG/DL 01/07/2017 1:23 PM CDT [facility] BUN 7 7 - 19 MG/DL 01/07/2017 1:23 PM CDT [facility] CREATININE S/P/B 0.69 0.60 - 1.10 MG/DL 01/07/2017 1:23 PM CDT [facility] OSMOLALITY (CALC) 276 01/07/2017 1:23 PM CDT [facility] ANION GAP 17 MMOL/L 01/07/2017 1:23 PM CDT [facility] PLASMA SPECIMEN / Unknown 01/07/2017 1:54 PM CDT 01/07/2017 12:58 PM CDT us Generic Conversion Md [facility] Final R esult [facility] [address] [place] [address], [id number] documented in this encounter Visit Diagnoses Not on filedocumented in this encounter
--- OUTSIDE RECORDS SUMMARY | 2024-05-10 18:08 | XMS_ITS | Encounter Summary ---
Author Organization [facility] Address [address] [place] [address]. [place] [address] [place] [address] Care Team Providers Care Radiator Mechanic Name Role Phone Emeraldaniceto Carrie Josette BETTS Primary Care Provider Reason for Visit * Reason Comments Echo (SCAN) Encounter Details Date Type Department Care Team ([facility] st Contact Info) Description 02/12/2020 Scan [facility] Information [facility] [address] [place] [address] Scanned, Documents Echo (SCAN) Social History Tobacco Use Types Packs/Day [...] COVID-19? No / Unsure 04/22/2020 11:06 AM SYSTEM ARCHIVE ANALYST documented as of this encounter Functional Status * RETIRED Are you deaf or do you have serious difficulty hearing Answer Date of Assessment Author Status No 06/25/2019 6:34 AM SYSTEM ARCHIVE ANALYST Activ e * RETIRED Are you blind or do you have serious difficulty seeing, even when wearing glasses? Answer Date of Assessment Author Status No 06/25/2019 6:34 AM SYSTEM ARCHIVE ANALYST Activ e * Do you have [...] Procedure Name Priority Date/Time Associated Diagnosis Comments ECHO GENERIC (SCAN ORDER) Routine 02/12/2020 12:00 AM CDT documented in this encounter Results * ECHO (02/12/2020 12:00 AM CDT) Anatomical Region Laterality Modality Other 02/12/2020 us Documents Scanned SCANNING Final Result documented in this encounter Visit Diagnoses Not on filedocumented in this encounter Additional Health Concerns Infection Onset Date Last Indicated Resolved Time COVID-19 Rule Out 04/16/2020 04/22/2020 04/23/2020 3:31 PM SYSTEM ARCHIVE ANALYST documented as of this encounter Care Teams Radiator Mechanic Relationship Specialty Start Date End Date Carrie Joseph PA-C PCP - General PHYSICIAN FISH ROE PROCESSOR 01/11/19 documented as of this encounter
--- OUTSIDE RECORDS SUMMARY | 2024-05-10 18:08 | XMS_ITS | Encounter Summary ---
Author Organization [facility] Address [address] [place] [address]. [place] [address] [place] [address] Care Team Providers Care Nuclear Logging Engineer Name Role Phone Carrie Joseph PA-C Primary Care Provider Encounter Details Date Type Department Care Team (Late st Contact Info) Description 07/17/2017 Abstract [facility] CONVERSION [address] [place] [address] , Generic Conversion, Social History Tobacco Use [...] Rule Out 04/16/2020 04/22/2020 04/23/2020 3:31 PM RESIDENTIAL DOOR UNIT INSTALLER documented as of this encounter Care Teams Nuclear Logging Engineer Relationship Specialty Start Date End Date Carrie Joseph PA-C PCP - General PHYSICIAN MILLING/POLISHING OPERATOR 01/11/19 documented as of this encounter
--- OUTSIDE RECORDS SUMMARY | 2024-05-10 18:08 | XMS_ITS | Encounter Summary ---
Author Organization [facility] Address [address] [place] [address]. [place] [address] [place] [address] Care Team Providers Care Food And Drink Factory Workers Name Role Phone Unavailable Primary Care Provider Unavailabl e Encounter Details Date Type Department Care Team (Latest Contact Info) Description 04/28/2017 Abstract [facility] Social History Tobacco Use [...]
--- OUTSIDE RECORDS SUMMARY | 2024-05-10 18:08 | XMS_ITS | Encounter Summary ---
Author Organization [facility] Address [address] [place] [address]. [place] [address] [place] [address] Care Team Providers Care Gold Blower Name Role Phone Jake Carrie Finch PA-C Primary Care Provider Encounter Details Date Type Department Care Team (Late st Contact Info) Description 04/02/2020 Orders Only [facility] [address] [place] [address] [place] [address] [address] Social History Tobacco Use Types Packs/Day Years [...] Assessment Author Status No 06/25/2019 6:34 AM ACADEMIC GUIDANCE SPECIALIST Acti ve * RETIRED Are you blind or do you have serious difficulty seeing, even when wearing glasses? Answer Date of Assessment Author Status No 06/25/2019 6:34 AM ACADEMIC GUIDANCE SPECIALIST Activ e * Do you have serious difficulty walking or climbing stairs? Answer Date of Assessment Author Status No 06/25/2019 6:34 AM ACADEMIC GUIDANCE SPECIALIST Nail, Obdulia D, RN Active * Do you have difficulty [...] as of this encounter Visit Diagnoses Diagnosis Missed (HHS/HCC) Missed documented in this encounter Care Teams Gold Blower Relationship Specialty Start Date End Date Carrie Joseph PA-C PCP - General PHYSICIAN UNIVERSITY RELATIONS VICE PRESIDENT 01/11/19 documented as of this encounter
--- OUTSIDE RECORDS SUMMARY | 2024-05-10 18:08 | XMS_ITS | Clinical Summary ---
Author Organization [facility] Address [address] [place] [address]. [place] [address] [place] [address] Care Team Providers Care Sweater Designer Name Role Phone EmeraldCarrie moreland Josette BETTS Primary Care Provider Allergies No known active allergies Medications insulin lispro (HUMALOG) 100 UNIT/ML patient supplied PUMP Inject into the skin continuous. Active BASAGLAR KWIKPEN 100 UNIT/ML injection (PEN)Indication s:Diabetes Mellitus Inject 10 Units into the skin nightly at bedtime. Indications: Diabetes 11 9 05/05/19 25 Discontinu ed(Error) Active Problems No known active problems Resolved Problems Problem Noted Date Diagnosed Date Resolved Date Vomiting 06/25/2019 06/25/2019 Encounters Date Type Department Care Team Description 05/10/2024 7:35 AM [facility] Anesthesia [place] [address] Lex Perea CRNA Portera Mankins, Sally B, MD 05/10/2024 7:30 AM [facility] - 05/10/2024 8:19 AM [facility] [place] [address] Genie Reid MD DILATATION & CURETTAGE SUCTION WITH 12 CURVED VACUUM CURETTE, TRANSVAGINAL ULTRASOUND 05/10/2024 6:42 AM [facility] [employer] CONCIER[facility] - 05/10/2024 10:30 AM [facility] Hospital Encounter [place] [address] [facility] [address] Genie Reid MD Discharge Disposition: Home or Self Care (Routine Discharge) 05/10/2024 Travel 05/05/2024 Travel 05/04/2024 12:03 PM [facility] [employer] [facility] - 05/04/2024 11:59 PM [facility] Hospital [facility] [place] [address] [facility] [place] [address] Genie Reid MD Discharge Disposition: Home or Self Care (Routine Discharge) 05/04/2024 Orders Only [place] [address] [facility] [place] [address] Genie Reid MD 05/04/2024 Travel from Last 3 Months Family History Relation Status Comments Father Alive Mother Alive Social History Tobacco Use Types Packs/Day Years Used Date Smoking Tobacco: Never Smokeless Tobacco: Never Alcohol Use Standard Drinks/Week Comments Not Currently 0 (1 standard drink = 0.6 oz pur e alcohol) Comments No Sex and Gender Information Value Date Recorded Sex Assigned at Not on file Legal Sex Female 11:28 PM CDT Gender Identity Not on file Sexual Orientation Not on file Last Filed Vital Signs Vital Sign Reading Time Taken Comments Blood Pressure 98/45 05/10/2024 9:45 AM [facility] [employer]ER[facility] Pulse 105 05/10/2024 8:22 AM [facility] [employer]CIER[facility] Temperature 36.7 ??C (98 ??F) 05/10/2024 9:15 AM [facility] [employer] Respiratory Rate 18 05/10/2024 8:22 AM [facility] [facility] Oxygen Saturation 99% 05/10/2024 9:45 AM [facility] [employer] Inhaled Oxygen Concentration - - Weight 77.1 kg (170 lb) 05/10/2024 6:54 AM [facility] [employer] Height 154.9 cm (5' 1 ) 05/10/2024 6:54 AM [facility] Body Mass Index 32.12 05/10/2024 6:54 AM [facility] [employer] Plan of Treatment Health Maintenance Due Date Last Done Comments Cervical Cancer Screening Pap Smear (Age 21 to 29) Every 3 Years 1996 Cervical Cancer Screening 1996 Hepatitis B Vaccines (3 of 3 - 3-dose series) 1996 1996, 1996 Annual Physical 1999 Hepatitis C 2014 COVID-19 Vaccine ( season) 2024 05/11/2021 Influenza Adult (#1) 2024 05/26/2018, 01/01/2017, 05/13/2016 DTaP, Tdap and Td Vaccines (5 - Td or Tdap) 02/04/2033 02/04/2023, 09/09/2016, 12/11/2009, Additional history exists Meningococcal Vaccine Completed 10/25/2012, 010 HPV Vaccines Aged Out No longer eligi ble based on patient's age to complete this topic Pneumococcal Vaccine: Pediatrics (0 to 5 Years) and At-Risk Patients (6 to 64 Years) Aged Out No longer eligible based on patient's age to complete this topic RSV Immunizations Under 20 Months Aged Out No longer eligible based on patient's age to complete this topic Procedures Procedure Name Priority Date/Time Associated Diagnosis Comments DILATATION & CURETTAGE SUCTION 05/10/2024 7:35 AM [facility] [employer] MISSED Case Notes IDDM-has insulin pump URINE BACTERIA CULTURE Routine 05/04/2024 12:17 PM [facility] [employer] Pre-operative laboratory examination TYPE & SCREEN Routine 05/04/2024 12:17 PM [facility] [employer] Pre-operative laboratory examination HC URINALYSIS AUTO W/O MICRO Routine 05/04/2024 12:17 PM [employer]ER[facility] Pre-operative laboratory examination CBC W/DIFF AUTOMATED Routine 05/04/2024 12:17 PM [facility] Pre-operative laboratory examination from Last 3 Months Results * TYPE & SCREEN (05/04/2024 12:17 PM [facility] [employer]ER[facility]) ABO/RH O POSITIVE 05/04/2024 4:37 PM [facility] [facility] ANTIBODY SCREEN NEGATIVE 05/04/2024 4:37 PM [facility] [employer] SAMPLE EXPIRATION 05/18/2024,2 359 05/06/2024 7:40 AM [facility] [employer] 05/04/2024 12:1 7 PM [employer]ER[employer] Genie Reid MD BLOOD BANK TEST ORDERABLES Fin al Result [facility] [address] [place] [address], [place] [phone] * (ABNORMAL) URINALYSIS (05/04/2024 12:17 PM [facility]ER[facility]) COLOR (U) YELLOW 05/04/2024 1:48 PM [facility] [employer] TRANSPARENCY CLEAR 05/04/2024 1:48 PM [facility] [employer] SPECIFIC GRAVITY (U) 1.010 1.002 - 1.030 05/04/2024 1:48 PM [facility] [employer] U PH 7.0 4.5 - 8.0 05/04/2024 1:48 PM [facility] [employer] LEUKOCYTES (U) 1+(A) NEGATIVE 05/04/2024 1:48 PM [facility] [employer] NITRITES NEGATIVE NEGATIVE 05/04/2024 1:48 PM [facility] [employer] PROTEIN RANDOM (U) 1+(A) NEGATIVE 05/04/2024 1:48 PM [facility] [employer] GLUCOSE (U) 4+(A) NEGATIVE 05/04/2024 1:48 PM [facility] [employer] KETONES MG/DL (U) NEGATIVE NEGATIVE 05/04/2024 1:48 PM [facility] [employer] UROBILINOGEN NORMAL NORMAL EU/DL 05/04/2024 1:48 PM [facility] [employer] BILIRUBIN (U) NEGATIVE NEGATIVE 05/04/2024 1:48 PM [facility] [employer] BLOOD (U) 3+(A) NEGATIVE 05/04/2024 1:48 PM [facility] [employer] WBC/HPF 0-5 /HPF 05/04/2024 1:48 PM [facility] [employer] RBC/HPF 5-10 /HPF 05/04/2024 1:48 PM [facility] EPI/HPF 5-10 /HPF 05/04/2024 1:48 PM [facility] BACTERIA (U) 1+ /HPF 05/04/2024 1:48 PM [facility] [employer] MUCUS 2+ 05/04/2024 1:48 PM [facility] [employer] URINE SPECIMEN OBTAINED BY CLEAN CATCH PROCEDURE / Unknown 05/04/2024 12:17 PM [facility]ER[facility] us Genie Reid MD URINE ORDERABLES Final Result Performing Organization Address City/[facility]/ZIP Co de Phone Number [facility] [address] [place] [address], [place] [phone] * (ABNORMAL) URINE BACTERIA CULTURE (05/04/2024 12:17 PM [facility] CONCIERGE) SPEC DESCRIPTION URINE CLEAN CATCH 05/04/2024 12:28 PM [facility] SPECIAL REQUESTS NO SPECIAL REQUEST 05/04/2024 12:28 PM [facility] CULTURE RESULT 10,000-49,000 COL/ML STREPTOCOCCUS GROUP D-NOT ENTEROCOCCUS SUSCEPTIBILTY NOT ROUTINELY PERFORMED. SAVING ISOLATE FOR 5 DAYS. CONTACT MICROBIOLOGY DEPARTMENT IF FURTHER WORKUP IS INDICATED. (A) 05/07/2024 8:24 AM [facility] CONCIER[facility] URINE SPECIMEN OBTAINED BY CLEAN CATCH PROCEDURE / Unknown 05/04/2024 12:17 PM [facility] [facility] 05/04/2024 12:28 PM [facility] [employer] us Genie Reid MD MICROBIOLOGY - GENERAL ORDERAB LES Final Result Performing Organization Address City/[facility]/ZIP Co de Phone Number [facility] [address] [place] [address], [place] [phone] [facility] [address] [place] [address], [place] [phone] * (ABNORMAL) CBC W/DIFF AUTOMATED (05/04/2024 12:17 PM HOTEL LOBBY CONCIERGE) [facility] WBC 10.70 4.50 - 11.00 x10'3/uL 05/04/2024 12:36 PM [facility] [employer] RBC 3.94(L) 4.20 - 5.40 x10'6/uL 05/04/2024 12:36 PM [facility] HGB 11.8(L) 12.0 - 16.0 G/DL 05/04/2024 12:36 PM [facility] HCT 35.2(L) 38.0 - 48.0 % 05/04/2024 12:36 PM [facility] MCV 89.3 81.0 - 99.0 FL 05/04/2024 12:36 PM [facility] MCH 29.9 27.0 - 31.0 PG 05/04/2024 12:36 PM [facility] MCHC 33.5 32.0 - 36.0 G/DL 05/04/2024 12:36 PM [facility] RDW 13.2 11.5 - 14.5 % 05/04/2024 12:36 PM [facility] PLT 378 130 - 400 x10'3/uL 05/04/2024 12:36 PM [facility] MPV 8.8(L) 9.3 - 12.2 FL 05/04/2024 12:36 PM [facility] CBC COMMENT AUTOMATED RBC MORPHOLOGY AND PLATELET EVALUATION NORMAL 05/04/2024 12:36 PM [facility] NEUTROPHILS % 77.5 % 05/04/2024 12:36 PM [facility] LYMPHOCYTES % 13.9 % 05/04/2024 12:36 PM [facility] MONOCYTES % 6.9 % 05/04/2024 12:36 PM [facility] EOSINOPHILS 0.4 % 05/04/2024 12:36 PM [facility] BASOPHILS 0.3 % 05/04/2024 12:36 PM [facility] IMMATURE GRANS % 1.0 % 05/04/19 25 12:36 PM [facility] NRBC % 0.0 % 05/04/2024 12:36 PM [facility] ABS. NEUTROPHILS TOTAL 8.29(H) 1.80 - 7.70 x10'3/uL 05/04/2024 12:36 PM [facility] ABS. LYMPHOCYTES 1.49 1.00 - 4.80 x10'3/uL 05/04/2024 12:36 PM [facility] ABS. MONOCYTES 0.74 0.24 - 0.86 x10'3/uL 05/04/2024 12:36 PM [facility] ABS. EOSINOPHILS 0.04 0.04 - 0.36 x10'3/uL 05/04/2024 12:36 PM [facility] ABS. BASOPHILS 0.03 0.01 - 0.08 x10'3/uL 05/04/2024 12:36 PM [facility] ABS. IMMATURE GRANULOCYTES 0.11 0.00 - 0.49 x10'3/uL 05/04/2024 12:36 PM [facility] ABS. NUCLEATED RBC'S 0.00 0.00 - 0.01 x10'3/uL 05/04/2024 12:36 PM [facility] [employer] [facility] 05/04/2024 12:1 7 PM [employer] Genie Reid MD LABORATORY Final Result [facility] [address] [place] [address], from Last [address] [place] [address] C/O PROVIDER SERVICES KEANU BAIRES [id number] Advance Directives Documents on File Type Date Recorded Patient Bureau Chief Expl anation Advance Directives and Living Will 04/18/2020 9:10 AM 01/10/2007 LIVING [place] Advance Directives and Living Will 04/18/2020 9:09 AM 01/10/2007 HC POA Advance Directives and Living Will 01/07/2017 SHORT FORM POWER OF IRON CARRIER Advance Directives and Living Will 01/07/2017 LIVING WILL Advance Directives and Living Will 12/22/2016 LIVING WILL Advance Directives and Living Will 12/22/2016 SHORT FORM POWER OF IRON CARRIER * Full Code (Latest Code Status on File) Date Activated Date Inactivated Comments 05/10/2024 8:24 AM 05/10/2024 12:51 PM * Full Code Date Activated Date Inactivated Comments 04/24/2020 11:18 AM 04/24/2020 2:03 PM * Full Code Date Activated Date Inactivated Comments 06/25/2019 6:14 AM 06/25/2019 6:51 PM Care Teams Sweater Designer Relationship Specialty Start Date End Date Carrie Joseph PA-C PCP - General PHYSICIAN MARKETING PROJECT SPECIALIST 01/11/19
--- OUTSIDE RECORDS SUMMARY | 2024-05-10 18:08 | XMS_ITS | Encounter Summary ---
Author Organization [facility] Address [address] [place] [address]. [place] [address] [place] [address] Care Team Providers Care Seo Manager Name Role Phone Unavailable Primary Care Provider Unavailabl e Encounter Details Date Type Department Care Team (Late st Contact Info) Description 06/16/2017 Orders [place] [address] , Generic Conversion, Social History Tobacco Use [...] Name Priority Date/Time Associated Diagnosis Comments CHLAMYDIA TRACH PCR Routine 11/17/2016 2 :04 PM CDT documented in this encounter Results * CHLAMYDIA TRACH PCR (11/17/2016 2:04 PM CDT) CHLAMYDIA PCR NEGATIVE NEGATIVE 11/17/2016 2:04 PM CDT [facility] SPECIMEN SOURCE GENITAL 11/17/2016 4:42 AM CDT [facility] GENITAL SWAB / Unknown 11/17/2016 6:23 AM CDT us Generic Conversion Md [facility] MICROBIOLOGY - GENERAL ORDERABLES Final Result [facility] [address] [place] [address], [id number] documented in this encounter Visit Diagnoses Not on filedocumented in this encounter
--- OUTSIDE RECORDS SUMMARY | 2024-05-10 18:08 | XMS_ITS | Encounter Summary ---
Author Organization [facility] Address [address] [place] [address]. [place] [address] [place] [address] Care Team Providers Care Sr Technical Sales Consultant Name Role Phone Unavailable Primary Care Provider Unavailabl e Encounter Details Date Type Department Care Team (Latest Contact Info) Description 10/26/2017 Abstract [facility] Social History Tobacco [...]
--- OUTSIDE RECORDS SUMMARY | 2024-05-10 18:08 | XMS_ITS | Encounter Summary ---
Author Organization [facility] Address [address] [place] [address]. [place] [address] [place] [address] Care Team Providers Care Maintenance Repairer Name Role Phone Unavailable Primary Care Provider Unavailabl e Encounter Details Date Type Department Care Team (Late st Contact Info) Description 01/07/2017 Orders [place] [address] , Generic Conversion, Social History [...] Procedure Name Priority Date/Time Associated Diagnosis Comments CBC W/DIFF AUTOMATED STAT 01/07/2017 1:54 PM CDT documented in this encounter Results * (ABNORMAL) CBC W/DIFF AUTOMATED (01/07/2017 1:54 PM CDT) WBC 3.4(L) 4.0 - 10.8 x10'3/uL 01/07/2017 1:11 PM CDT [facility] RBC 4.82 4.10 - 5.40 x10'6/uL 01/07/2017 1:11 PM CDT [facility] HGB 14.4 12.0 - 16.0 G/DL 01/07/2017 1:11 PM CDT [facility] HCT 40.3 36.0 - 47.0 % 01/07/2017 1:11 PM CDT [facility] MCV 83.6 78.0 - 100.0 FL 01/07/2017 1:11 PM CDT [facility] MCH 29.9 27.0 - 31.0 PG 01/07/2017 1:11 PM CDT [facility] MCHC 35.7 33.0 - 36.0 G/DL 01/07/2017 1:11 PM CDT [facility] RDW 13.6 11.5 - 14.5 % 01/07/2017 1:11 PM CDT [facility] PLT 337 150 - 350 x10'3/uL 01/07/2017 1:11 PM CDT [facility] MPV 9.1 7.4 - 10.4 FL 01/07/2017 1:11 PM CDT [facility] ABS. NEUTROPHILS TOTAL 2.36 1.60 - 8.30 x10'3/uL 01/07/2017 1:11 PM CDT [facility] ABS. LYMPHOCYTES 0.80 0.80 - 4.70 x10'3/uL 01/07/2017 1:11 PM CDT [facility] ABS. MONOCYTES 0.21 0.00 - 1.50 x10'3/uL 01/07/2017 1:11 PM CDT [facility] ABS. EOSINOPHILS 0.00 0.00 - 0.40 x10'3/uL 01/07/2017 1:11 PM CDT [facility] ABS. BASOPHILS 0.01 0.00 - 0.20 x10'3/uL 01/07/2017 1:11 PM CDT [facility] ABS. IMMATURE GRANULOCYTES 0.02 0.00 - 0.03 x10'3/uL 01/07/2017 1:11 PM CDT [facility] ABS. NUCLEATED RBC'S 0.00 0.0 x10'3/uL 01/07/2017 1:11 PM CDT [facility] PLASMA SPECIMEN / Unknown 01/07/2017 1:54 PM CDT 01/07/2017 12:58 PM CDT us Generic Conversion Md [facility] Final R esult Performing Organization Address City/State/[facility] Co de Phone Number [facility] [address] [place] [address], [id number] documented in this encounter Visit Diagnoses Not on filedocumented in this encounter
--- OUTSIDE RECORDS SUMMARY | 2024-05-10 18:08 | XMS_ITS | Encounter Summary ---
Author Organization [facility] Address [address] [place] [address]. [place] [address] [place] [address] Care Team Providers Care Locomotive Mechanic Apprentice Name Role Phone Unavailable Primary Care Provider Unavailabl e Encounter Details Date Type Department Care Team (Late st Contact Info) Description 10/15/2017 Abstract [facility] [address] [place] [address] Kim Atwood NP [address] [place], [place] [id number] Social History Tobacco Use Types Packs/Day Years Used Date Smoking Tobacco: Never Assessed Comments Unknown Sex and Gender Information Value Date Recorded Sex Assigned at Not on file Legal Sex Female 11:28 PM CDT Gender Identity Not on file Sexual Orientation Not on file documented as of this encounter Last Filed Vital Signs Vital Sign Reading Time Taken Comments Blood Pressure 92/66 10/15/2017 10:17 AM CDT Pulse 105 10/15/2017 10:17 AM CDT Temperature - - Respiratory Rate - - Oxygen Saturation - - Inhaled Oxygen Concentration - - Weight 55.3 kg (121 lb 14.4 oz) 018 10:17 AM CDT Height - - Body Mass Index 23.03 05/06/2017 10:21 AM CHROME PLATER HELPER documented in this encounter Progress Notes * Kim Atwood NP - 10/15/2017 10:00 AM CDT Reason For Visit Patient here to have paper filled out for her drivers license. 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 States she forgot to renew it before it , and they sent her a form that needs to be completed by us. Her only medical issue id Type 1 DM. She sees endocrinology every 3 months and has an apptlater this month. States her DM is well controlled. Denies any episodes of LOC or seizures. Review of Systems See HPI for pertinent positives. Active Problems 1. Diabetes mellitus (250.00) (E11.9) 2. 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 History of hydronephrosis (V13.09) (Z87.448) Family History Grandmother 1. Family history of hypertension (V17.49) (Z82.49) 2. Family history of Heart problem Grandfather 3. Family history of Alzheimer's disease (V17.2) (Z82.0) 4. Family history of cerebrovascular accident (CVA) (V17.1) (Z82.3) Social History ?? Never a smoker Current Meds 1. HumaLOG 100 UNIT/ML Subcutaneous Solution; Patient is to inject 6 units every 60g of carbs; Therapy: 06May2017 to Recorded Dispense: 0 Days ; #: Sufficient X 3 ML Vial; Refill: 0; NIYA = N; Record; Last Updated By: Loli Solis; 05/06/2017 10:46:22 AM 2. Lantus 100 UNIT/ML Subcutaneous Solution; 12 units at bedtime; Therapy: 06May2017 to Recorded Dispense: 0 Days ; #: Sufficient X 10 ML Vial; Refill: 0; NIYA = N; Record; Last Updated By: Loli Solis; 05/06/2017 10:46:22 AM Allergies 1. No Known Drug Allergies Recorded By: Loli Solis; 05/06/2017 10:26:18 AM Vitals Recorded: 15Oct2017 10:17AM Temperature 98 F, Temporal Heart Rate 105 Systolic 92, LUE, Sitting Diastolic 66, LUE, Sitting O2 Saturation 96 Weight 121 lb 14.4 oz Physical Exam Constitutional General appearance: No acute distress, well appearing and well nourished. Eyes Conjunctiva and lids: No swelling, erythema or discharge. Ears, Nose, Mouth, and Throat External inspection of ears and nose: Normal. Pulmonary Respiratory effort: No increased work of breathing or signs of respiratory distress. Cardiovascular Palpation of heart: Normal PMI, no thrills. Auscultation of heart: Normal rate and rhythm, normal S1 and S2, without murmurs. Musculoskeletal Gait and station: Normal. Skin Skin and subcutaneous tissue: Normal without rashes or lesions. Psychiatric Orientation to person, place, and time: Normal. Mood and affect: Normal. Assessment 1. Diabetes mellitus (250.00) (E11.9) 2. 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 Copy given to pt and scanned into chart. F/U PRN. Signatures Electronically signed by : WOJCIECH Barrientos; Oct 15 2017 11:31AM CHROME PLATER HELPER (Author) documented in this encounter Plan of Treatment Not on file documented as of this encounter Visit Diagnoses Not on filedocumented in this encounter
--- OUTSIDE RECORDS SUMMARY | 2024-05-10 18:08 | XMS_ITS | Encounter Summary ---
Author Organization [facility] Address [address] [place] [address]. [place] [address] [place] [address] Care Team Providers Care Rf Test Technician Name Role Phone Unavailable Primary Care Provider Unavailabl e Encounter Details Date Type Department Care Team (Late st Contact Info) Description 01/07/2017 Orders Only ANY CONVERSION ONE [place], [place] [id number] , Generic Conversion, Social History Tobacco Use [...] Procedure Name Priority Date/Time Associated Diagnosis Comments MAGNESIUM STAT 01/07/2017 1:54 PM CDT documented in this encounter Results * MAGNESIUM (01/07/2017 1:54 PM CDT) MAGNESIUM 2.0 1.7 - 2.2 MG/DL 01/07/2017 1:25 PM CDT [facility] Comment:RESULT QUESTIONABLE DUE TO HEMOLYSIS, RECOMMEND RECOLLECTION. SERUM OR PLASMA SPECIMEN / Unknown 01/07/2017 1:54 PM CDT 01/07/2017 12:58 PM CDT Generic Conversion Md [facility] Final R esult [facility] [address] [place] [address], [id number] documented in this encounter Visit Diagnoses Not on filedocumented in this encounter
--- OUTSIDE RECORDS SUMMARY | 2024-05-10 18:08 | XMS_ITS | Encounter Summary ---
Author Organization [facility] Address [address] [place] [address]. [place] [address] [place] [address] Care Team Providers Care Still Operator Helper Name Role Phone Emeraldaniceto Carrie Josette EBTTS Primary Care Provider Reason for Visit * Reason Comments Skin Problem left ankle Encounter Details Date Type Department Care Team (Late st Contact Info) Description 01/11/2019 12:00 PM CDT Office Visit [facility] Priority Care - [address]. [address] [place] [address] Stacey Romero NP [address] [place] [address] [place] [address] Skin Problem (left ankle) Social History Tobacco Use Types Packs/Day Years Used Date Smoking Tobacco: Never Assessed Comments Unknown Sex and Gender Information Value Date Recorded Sex Assigned at Not on file Legal Sex Female 11:28 PM CDT Gender Identity Not on file Sexual Orientation Not on file documented as of this encounter Last Filed Vital Signs Vital Sign Reading Time Taken Comments Blood Pressure 102/60 01/11/2019 12:48 PM CDT Pulse 98 01/11/2019 12:48 PM CDT Temperature 37 ??C (98.6 ??F) 01/11/2019 12:48 PM CDT Respiratory Rate 20 01/11/2019 12:48 PM CDT Oxygen Saturation 99% 01/11/2019 12:48 PM CDT Inhaled Oxygen Concentration - - Weight - - Height - - Body Mass Index - - documented in this encounter Patient Instructions * Patient Instructions* Stacey Romero NP - 01/11/2019 12:00 PM CDT Take medication as directed. Be sure and finish all the medication. Follow up with pcp for worsening or failure to improve. documented in this encounter Progress Notes * Stacey Romero NP - 01/11/2019 12:00 PM CDT Reason for Visit: Skin Problem (left ankle) History of Present Illness: Multiple insect bites on lower extremities bilaterally ROS: Review of Systems Constitutional: Negative for chills and fever. HENT: Negative for ear pain. Respiratory: Negative for cough and shortness of breath. Cardiovascular: Negative for chest pain and palpitations. Gastrointestinal: Negative for abdominal pain. Musculoskeletal: Negative for myalgias. Skin: Insect bites, one looking infected Neurological: Negative for dizziness and headaches. Psychiatric/Behavioral: Negative for depression. Medications: Current Outpatient Medications: ??? sulfamethoxazole-trimethoprim (BACTRIM DS) 800-160 MG tablet, Take 1 tablet by mouth 2 (two) times daily for 10 days., Disp: 20 tablet, Rfl: 0 ??? ADMELOG 100 UNIT/ML injection (VIAL), INJECT 6 UNITS SUBCUTANEOUSLY 3 TIMES DAILY BEFORE MEALS.PATIENT SPECIFIC SLIDING SCALE BASED OFF DIET, Disp: , Rfl: 11 ??? BASAGLAR KWIKPEN 100 UNIT/ML injection (PEN), INJECT 10 UNITS SUBCUTANEOUSLY AT BEDTIME, Disp: , Rfl: 11 ??? 05/22 1-20 MG-MCG tablet, Take 1 tablet by mouth daily., Disp: , Rfl: 14 No Known Allergies History reviewed. No pertinent past medical history. History reviewed. No pertinent surgical history. Social History Socioeconomic History ??? Marital status: Single Spouse name: Not on file ??? Number of children: Not on file ??? Years of education: Not on file ??? Highest education level: Not on file Occupational History ??? Not on file Social Needs ??? Financial resource strain: Not on file ??? Food insecurity: Worry: Not on file Inability: Not on file ??? Transportation needs: Medical: Not on file Non-medical: Not on file Tobacco Use ??? Smoking status: Not on file Substance and Sexual Activity ??? Alcohol use: Not on file ??? Drug use: Not on file ??? Sexual activity: Not on file Lifestyle ??? Physical activity: Days per week: Not on file Minutes per session: Not on file ??? Stress: Not on file Relationships ??? Social connections: Talks on phone: Not on file Gets together: Not on file Attends episcopalian service: Not on file Active member of club or organization: Not on file Attends meetings of clubs or organizations: Not on file Relationship status: Not on file ??? Intimate partner violence: Fear of current or ex partner: Not on file Emotionally abused: Not on file Physically abused: Not on file Forced sexual activity: Not on file Other Topics Concern ??? Not on file Social History Narrative ??? Not on file No family history on file. No family status information on file. Physical Exam Constitutional: She appears well-developed and well-nourished. Cardiovascular: Normal rate, regular rhythm and normal heart sounds. Pulmonary/Chest: Effort normal and breath sounds normal. Abdominal: Soft. Bowel sounds are normal. Skin: Small, pea sized papular lesion, looks like a bug bite, on left ankle. Skin surrounding is inflammed and erythematous. Small dark red center punctum. No drainage or exudate. No red streaks. Is painful to palpation. Nursing note and vitals reviewed. Filed Vitals: 01/11/19 1248 BP: 102/60 Pulse: 98 Resp: 20 Temp: 98.6 ??F (37 ??C) SpO2: 99% Diagnoses/Impression: 1. Cellulitis of left lower extremity sulfamethoxazole-trimethoprim (BACTRIM DS) 800-160 MG tablet 2. Bug bite with infection, initial encounter sulfamethoxazole-trimethoprim (BACTRIM DS) 800-160 MGtablet Recommendations and Plan: Take medication as directed. Be sure and finish all the medication. Follow up with pcp for worsening or failure to improve. STACEY ROMERO NP Referring Provider: No ref. provider found PCP: CARRIE MATUTE PA-C documented in this encounter Plan of Treatment Not on file documented as of this encounter Visit Diagnoses Diagnosis Cellulitis of left lower extremity- Primary Cellulitis and abscess of leg, except foot Bug bite with infection, initial encounter documented in this encounter Care Teams Still Operator Helper Relationship Specialty Start Date End Date Carrie Matute PA-C PCP - General PHYSICIAN DENTURE PROCESSOR 01/11/19 documented as of this encounter
--- OUTSIDE RECORDS SUMMARY | 2024-05-10 18:08 | XMS_ITS | Encounter Summary ---
Author Organization [facility] Address [address] [place] [address]. [place] [address] [place] [address] Care Team Providers Care Meter/Relay Technician Name Role Phone Unavailable Primary Care Provider Unavailabl e Encounter Details Date Type Department Care Team (Late st Contact Info) Description 11/04/2017 Abstract [facility] Medical [facility] [address] [place] [address] Juana Cespedes PA-C [address] [place] [phone] Social History Tobacco Use Types Packs/Day Years [...]
--- OUTSIDE RECORDS SUMMARY | 2024-05-10 18:08 | XMS_ITS | Encounter Summary ---
Author Organization [facility] Address [address] [place] [address]. [place] [address] [place] [address] Care Team Providers Care Hot Air Furnace Installer And Repairer Name Role Phone Unavailable Primary Care Provider Unavailabl e Encounter Details Date Type Department Care Team (Late st Contact Info) Description 01/07/2017 Orders Only ANY CONVERSION [place], [place] [id number] Md, Generic Conversion, Social History Tobacco Use Types [...] Procedure Name Priority Date/Time Associated Diagnosis Comments THYROXINE, FREE (FT4) TIMED 01/07/2017 3:14 PM CDT documented in this encounter Results * THYROXINE, FREE (FT4) (01/07/2017 3:14 PM CDT) FREE T4 1.22 0.9 - 1.5 NG/DL 01/07/2017 2:58 PM CDT [facility] SERUM OR PLASMA SPECIMEN / Unknown 01/07/2017 3:14 PM CDT 01/07/2017 2:15 PM CDT us Generic Conversion Md [facility] Final R esult [facility] [address] [place] [address], [id number] documented in this encounter Visit Diagnoses Not on filedocumented in this encounter
--- OUTSIDE RECORDS SUMMARY | 2024-05-10 18:08 | XMS_ITS | Encounter Summary ---
Author Organization [facility] Address [address] [place] [address]. [place] [address] [place] [address] Care Team Providers Care Plastic Outfitter Name Role Phone EmeraldCarrie moreland Josette BETTS Primary Care Provider Encounter Details Date Type Department Care Team (Late st Contact Info) Description 04/22/2020 Orders Only [facility] Pre-Admission Testing [address] [place], [place] [id number] Ector Mayfield MD [address] [place] [address] Social History Tobacco Use Types Packs/Day Years [...] COVID-19? No / Unsure 04/24/2020 7:52 AM JET DYEING MACHINE OPERATOR documented as of this encounter Functional Status * RETIRED Are you deaf or do you have serious difficulty hearing Answer Date of Assessment Author Status No 06/25/2019 6:34 AM JET DYEING MACHINE OPERATOR Activ e * RETIRED Are you blind or do you have serious difficulty seeing, even when wearing glasses? Answer Date of Assessment Author Status No 06/25/2019 6:34 AM JET DYEING MACHINE OPERATOR Activ e * Do you have serious difficulty walking or climbing stairs? Answer Date of Assessment Author Status No 06/25/2019 6:34 AM JET DYEING MACHINE OPERATOR Obdulia Guerrier RN Active * Do you have difficulty dressing or bathing? Answer Date of Assessment Author Status No 06/25/2019 6:34 AM JET DYEING MACHINE OPERATOR Obdulia Guerrier RN Active * Because of [...] as of this encounter Visit Diagnoses Diagnosis Pre-operative laboratory examination- Primary Pre-procedural laboratory examination documented in this encounter Additional Health Concerns Infection Onset Date Last Indicated Resolved Time COVID-19 Rule Out 04/16/2020 04/22/2020 04/23/2020 3:31 PM JET DYEING MACHINE OPERATOR documented as of this encounter Care Teams Plastic Outfitter Relationship Specialty Start Date End Date Carrie Joseph PA-C PCP - General PHYSICIAN PROJECT ANALYST 01/11/19 documented as of this encounter
--- OUTSIDE RECORDS SUMMARY | 2024-05-10 18:08 | XMS_ITS | Encounter Summary ---
Author Organization [facility] Address [address] [place] [address]. [place] [address] [place] [address] Care Team Providers Care Rn Infusion Name Role Phone Jake Carrie Finch PA-C Primary Care Provider Encounter Details Date Type Department Care Team (Latest Contact Info) Description 04/17/2020 Travel Social History Tobacco Use Types Packs/Day [...] have Coronavirus / COVID-19? No / Unsure 04/17/2020 1:20 PM FROG SHAKER documented as of this encounter Functional Status * RETIRED Are you deaf or do you have serious difficulty hearing Answer Date of Assessment Author Status No 06/25/2019 6:34 AM FROG SHAKER Activ e * RETIRED Are you blind or do you have serious difficulty seeing, even when wearing glasses? Answer Date of Assessment Author Status No 06/25/2019 6:34 AM FROG SHAKER Activ e * Do you have serious difficulty walking or climbing stairs? Answer Date of Assessment Author Status No 06/25/2019 6:34 AM FROG SHAKER Obdulia Guerrier RN Active * Do you [...] on filedocumented in this encounter Care Teams Rn Infusion Relationship Specialty Start Date End Date Carrie Joseph PA-C PCP - General PHYSICIAN GERIATRIC ASSISTANT 01/11/19 documented as of this encounter
--- OUTSIDE RECORDS SUMMARY | 2024-05-10 18:08 | XMS_ITS | Data Portability ---
[facility] Address [address] [place] [address] Care Team Providers Care Director Plans Name Role Phone VICKY SIMENTAL Credit Risk Analytics Manager Assessment No assessment recorded. Plan of Treatment Reminders Order Date Submit Date Provider Last Modified By Organization Details Last Modified Time Details Appointments None recorded. Lab test, urine 2019 020 [email or web address] In-Office Order, Internal Use Only DO Not Attach Compendium DO Not Attach Compendium, Do Not Delete/merge, [id number] 12:26:41 prolactin , serum 2019 020 [facility], [address] [facility] [address], [address], 0 09:38:48 lh + FSH, serum 2019 020 [facility], [address] [facility] [address], [place], [address], 0 09:38:47 TSH, ultra-sen sitive, serum 2019 020 [facility], [address] [facility] [address], [place], [address], 0 09:38:48 test, urine 2019 020 [email or web address] In-Office Order, Internal Use Only DO Not Attach Compendium DO Not Attach Compendium, Do Not Delete/merge, [id number] 0 12:37:00 Referral None recorded. Procedures None recorded. Surgeries None recorded. Imaging None recorded. Medication Orders Microgest in FE 05/22 (28) 1 mg-20 mcg (21)/75 mg (7) tablet 2018 019 [facility], [address] [place], [address], 0 11:59:36 Provera 10 mg tablet 2019 020 [facility], [address] [facility], [place], [address], 0 12:37:09 Patient TargetsNo targets recorded. Patient Instructions Encounter Date Encounter Id Patient Instructions Last Modified By Organization Details Last Modified Time 11/16/2019 [id number] secondary amenorrhea: care instructions [email or web address] Not available 11/16/2019 12:37:00 Reason for Referral None Reported. Results Created Date Observation Date Name Description Value Unit Range Abnormal Flag Note LastModifiedBy Organization Detail LastModifiedTime 10/20/19 19 10/19/2018 pregn nahum test, urine HCG positi ve Not Available In-Office Order Internal Use Only DO Not Attach Compendium DO Not Attach Compendium, Do Not Delete/merge, [id number] 10/19/2018 10:21:23 10/27/19 19 10/28/2018 bacte rial vagin osis + vagin itis panel , vagin al atopobium vaginae Low - 0 score Not Available [facility] ([facility]) [address] [facility], [place], [address], 10/29/2018 16:35:29 10/27/19 19 10/28/2018 bacte rial vagin osis + vagin itis panel , vagin al bvab 2 Low - 0 score Not Available [facility] ([facility]) [address] [facility], [place], [address], 10/29/2018 16:35:29 10/27/19 19 10/28/2018 bacte rial [...] is not neces jason. Not Available [facility] ([facility]) [address] [place], [address], 10/29/2018 16:35:29 10/27/19 19 10/28/2018 bacte rial vagin osis + vagin itis panel , vagin al trich vag by HOMERO Negati ve negati ve Not Available [facility] ([facility]) [address] [place], [address], 10/29/2018 16:35:29 10/27/19 19 10/28/2018 bacte rial vagin osis + vagin itis panel , vagin al chlamydia trachomatis, HOMERO Negati ve negati ve Not Available [facility] ([facility]) [address] [place], [address], 10/29/2018 16:35:29 10/27/19 19 10/28/2018 bacte rial vagin osis + vagin itis panel , vagin al neisseria gonorrhoeae, HOMERO Negati ve negati ve Not Available [facility] ([facility]) [address] [place], [address], 10/29/2018 16:35:29 10/27/19 19 10/29/2018 bacte rial vagin osis + vagin itis panel , vagin al nidia albicans, HOMERO Positi ve negati ve abnormal Not Available [facility] ([facility]) [address] [facility], [place], [address], 10/29/2018 16:35:29 10/27/19 19 10/29/2018 bacte rial [...] is not neces jason. Not Available [facility] ([facility]) [address] [facility], [place], [address], 10/29/2018 16:35:29 10/27/19 19 10/26/2018 urina lysis , dipst ick Protein Negati ve Not Available In-Office Order Internal Use Only DO Not Attach Compendium DO Not Attach Compendium, Do Not Delete/merge, [id number] 10/26/2018 11:21:30 10/27/1910/26/2018 urina lysis , dipst ick Glucose Negati ve Not Available In-Office Order Internal Use Only DO Not Attach Compendium DO Not Attach Compendium, Do Not Delete/merge, [id number] 10/26/2018 11:21:30 10/05/19 20 10/05/2019 pregn nahum test, urine HCG negati ve Not Available In-Office Order Internal Use Only DO Not Attach Compendium DO Not Attach Compendium, Do Not Delete/merge, [id number] 10/05/2019 12:14:51 11/16/1911/17/2019 lh + FSH, serum LH 55.3 mIU/m L Adult Femal e: Folli cular phase 2.4 - 12.6 Ovula tion phase 14.0 - 95.6 Lutea l phase 1.0 - 11.4 Postm enopa usal 7.7 - 58.5 Not Available [facility] ([facility]) [address] [facility], [place], [address], 11/17/2019 09:38:47 11/16/1911/17/2019 lh + FSH, serum FSH 11.5 mIU/m L Adult Femal e: Folli cular phase 3.5 - 12.5 Ovula tion phase 4.7 - 21.5 Lutea l phase 1.7 - 7.7 Postm enopa usal 25.8 - 134.8 Not Available [facility] ([facility]) [address] [place], [address], 11/17/2019 09:38:47 11/16/1911/17/2019 TSH, ultra -sens itive , serum TSH 2.050 uIU/m L 0.450- 4.500 Not Available [facility] ([facility]) [address] [place], [address], 11/17/2019 09:38:48 11/16/1911/17/2019 prola ctin, serum prolactin 24.4 NG/mL 4.8-23 .3 above high normal Not Available [facility] ([facility]) [address] [place], [address], 11/17/2019 09:38:48 11/16/1911/16/2019 pregn nahum test, urine HCG negati ve Not Available In-Office Order Internal Use Only DO Not Attach Compendium DO Not Attach Compendium, Do Not Delete/merge, [id number] 11/16/2019 12:29:25 11/01/19 19 10/29/2018 US, obste tric, 1st trime ster No observ ation record ed. [email or web address] [facility] (Radiology) [address] [place], [address], 11/09/2018 18:04:47 Result Notes None recorded. 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 692632427 Active Radha [place] [facility] 9 09:49:34 Microcyt ic anemia 715029531 Active 2017 hgb/hct 10.8/32.5 , MCV 80 Radha [place] [facility] 9 09:49:34 Metaboli c acidosis , increase d anion gap (IAG) 87682710 Active 2017 Radha [place] [facility] 9 09:49:34 Hypokale shaji 40450472 Active 2017 Radha [place] [facility] 9 09:49:34 Pregnanc y 85253066 Completed 201811/30/2018 Radha [place] - [facility] 9 09:52:22 Uncontro lled type 1 diabetes mellitus 508233501 Active 2017 Carrie Joseph PA-C Attn: Accountin g,[address] [facility], [place], [address], [place] [facility] 9 09:30:16 Metaboli c alkalosi s 0681005 Active 2017 Carrie Joseph PA-C Attn: Accountin g,[address] [facility], [place], [address], [place] [facility] 9 09:31:33 Hypereme sis gravidar um with metaboli c disturba nce 250260689 Active 2018 Carrie Joseph PA-C Attn: Accountin g,[address] [facility], [place], [address], [place] - [facility] 9 09:31:33 Notes:multiple admissions fo r DKA and leaving AMA Problem Notes None recorded. Procedures Surgical History Date Name Laterality Status Provider Name and Address Organization Details Recorded Time 11/11/19 19 Dilation and Curettage completed Radha Perez [facility] 11/30/2018 09:54:12 11/10/19 19 Cerumen Removal completed Carrie Joseph PA-C Attn: Accounting,[address] [facility], [place], [address], [facility] 11/09/2018 08:59:31 08/16/19 19 Date of [facility] 10/19/2018 10:17:59 10/11/19 17 Caesarean Section completed Radha [facility] 08/15/2018 14:33:55 05/03/19 11 Tonsillectomy completed KAMI Cool [place] 01/17/2018 14:10:03 Imaging Results Imaging Date Name Status LastModified by Organiz ation Details LastModified Time 10/29/2018 US, obstetric, 1st trimester completed [email or web address] [facility] (Radiology) [address] [place] [address], [address], 11/09/2018 18:04:47 Procedure Notes None recorded. Medical Equipment None Reported. Allergies No known drug allergies Medications Name Sig Start Date Stop Date Status Note LastModified by Organization Details LastModified Time medroxypro gesterone 10 mg tablet Take 1 tablet every day by oral route. active Not Available Not Available No t Available promethazi ne 12.5 mg tablet TAKE 1 TABLET BY MOUTH THREE TIMES DAILY NEEDED FOR FOR NAUSEA AND VOMITING active Not Available Not Available No t Available Lantus U-100 Insulin 100 unit/mL subcutaneo us solution ADMINIST ER 16 UNITS UNDER THE SKIN EVERY MORNING active Not Available Not Available No t Available methylergo novine 0.2 mg tablet 11/30 completed Not Available Not Available Not Available metronidaz ole 500 mg tablet TAKE 1 TABLET BY MOUTH TWICE DAILY FOR 3 DAYS active Not Available Not Available No t Available sulfametho xazole 800 mg-trimeth oprim 160 [...] t Available insulin lispro (U-100) 100 unit/mL subcutaneo us solution ADMINIST ER UP TO 60 UNITS UNDER THE SKIN DAILY. INSULIN PUMP SETTINGS active Not Available Not Available No t Available ibuprofen 600 mg tablet 11/30 completed Not Available Not Available Not Available scopolamin e 1 mg over 3 days transderma l patch APPLY 1 PATCH TO THE SKIN DIRECTED EVERY 72 HOURS active Not Available Not Available No t Available ondansetro n 4 mg disintegra ting tablet DISSOLVE 1 TABLET BY MOUTH EVERY 8 HOURS NEEDED FOR NAUSEA active Not Available Not Available No t Available sertraline 50 mg tablet Take 1 [...] active Not Available Not Available Not Available Classic 28 mg iron-800 mcg tablet TAKE 1 TABLET BY MOUTH DAILY active Not Available Not Available No t Available Humalog KwikPen U-200 Insulin 200 unit/mL [...] Not Available Not Available No t Available Dexcom G7 Curing Press Maintainer USE TO MONITOR BLOOD GLUCOSE CONTINUO USLY active Not Available Not Available No t Available Dexcom G7 Sensor device USE EVERY 10 DAYS active Not Available Not Available No t Available Vitals Date Recorded Body height Body mass index (BMI) Body weight Heart rate Respiratory rate Oxygen saturation Oxygen saturation in Arterial blood by Pulse oximetry Body temperature Systolic blood pressure Diastolic blood pressure Provider Name and Address Organization Details Last Updated DateTime 9 156.21 cm 24.5 kg/m2 95042.1 9 g 114 /min 16 /min 98 % 98 % 114 [degF] 122 mm[Hg] 78 mm[Hg] Mar Menjivar [place] - [facility] 9 08:46:55 Date Recorded Body height Body mass index (BMI) Body weight Systolic blood pressure Diastolic blood pressure Provider Name and Address Organization Details Last Updated DateTime 11/09/2018 156.21 cm 25.4 kg/m2 61051.08 g 108 mm[Hg] 60 mm[Hg] [facility] 9 14:53:20 Date Recorded Body height Body mass index (BMI) Body weight Systolic blood pressure Diastolic blood pressure Provider Name and Address Organization Details Last Updated DateTime 11/30/2018 156.21 cm 26.5 kg/m2 75279.27 1962 g 110 mm[Hg] 74 mm[Hg] [facility] 9 09:52:01 Date Recorded Body height Body mass index (BMI) Body weight Systolic blood pressure Diastolic blood pressure Provider Name and Address Organization Details Last Updated DateTime 10/05/2019 156.21 cm 30.1 kg/m2 88535.32 g 100 mm[Hg] 80 mm[Hg] Radha Perez MA [facility] 0 11:58:16 Date Recorded Body height Body mass index (BMI) Body weight Systolic blood pressure Diastolic blood pressure Provider Name and Address Organization Details Last Updated DateTime 11/16/2019 156.21 cm 31.9 kg/m2 66361.17 g 106 mm[Hg] 78 mm[Hg] Cortney Lainez [facility] 0 12:12:18 Date Recorded Body height Provider Name an d Address Organization Details Last Updated DateTime 12/12/2019 156.21 cm Radha Perez MA [facility] 12/11 14:47:30 Social History Question Answer Notes LastModified by Organizat ion Details LastModified Time Tobacco Smoking Status Never Smoker KAMI Cool, [facility] 01/17/2018 14:07:35 Do You Have An Advance [...] available 10/05/2019 Education 12 2 Years At [employer] Information not available 01/17/2018 What Is Your Occupation? [employer] Information not available 10/05/2019 Frequent Air [...] Of Your Most Recent Tobacco Screening? 11/16/2019 [email or web address] Information not available 11/16/2019 How Many Children [...] How Much Tobacco Do You Smoke? No [email or web address] Information not available 11/16/2019 Smoking Pre- No [...] by Organization Details LastModified Time Mother Anemia [email or web address] Not available 0 01/17/2018 14:07:20 Notes:no relationship with d ad Medical History Condition Response Coronary Artery Disease N Other N High Blood Pressure N Atrial Fibrillation N Breast Cancer N Lung Disease N Depression N COPD N Blood Clots N Breast Problem N Anesthesia Complications N Headaches/Migraines N Anxiety Disorder Y Muscle, Joint, or Bone Problems N Polyps N Infertility N Acid Reflux (GERD) Y Cancer N Stroke N Endometriosis N High Cholesterol N Liver Disease N Headaches N Thyroid Problems N Kidney or Bladder Problems N GI Problems Y Acne N Skin Problems N Eating Disorder N Anemia N Heart Attack ([place]) N Ovarian Cancer N Diabetes Y Blood Transfusions N Seizures/Epilepsy N Abuse/Domestic Violence N Asthma N Allergies N Hepatitis N Heart Disease N Pre-Eclampsia N Osteoporosis N Heart Failure N Gynecological History Statement/Question Response Abnormal Pap [...] virus, quadrivalent, preservative 9 completed Not Available [facility] 05/20/2019 02:37:03 Past Encounters Encounter ID Performer Location Encounter Start Date Encounter Closed Date Diagnosis/Indication Diagnosis SNOMED-CT Code Diagnosis ICD10 Code Diagnosis Note [id number] [facility] (Adult Med) [address] [place] [address] 01/17/2018 13:54:22 01/18/2018 15:15:08 Type 1 diabetes mellitus 82585697 E10.9 reviewed hospital records. Pt instructed to continue current insulin regimen w/ humalog and Lantus, will refill humalog until she can get in with endocrine. She is traveling to [place] next month, not sure what she needs for her insulin needles to take on plane, she has never flown before. Will write letter of medical necessity Microcytic anemia 352340 007 D50.9 reviewed labs from [facility] with patient, will need to review [facility] records from earlier in the year to see if stable or getting worse. Pt is asymptomat ic. Mixed anxi ety and depressive disorder 855743995 F41.8 started on zoloft this last hospital stay; she has appt w/ psych in Mar. Cont current dose, call here if any problems while waiting for appt. Gastropare sis due to type 1 diabetes mellitus 471353207 E10.43 if she develops new N/V or regurgitat ion of foods or constipati on, would recommend gastric emptying study. Gastroesop hageal reflux disease without esophagitis 225472914 K21.9 controlled , cont low acid diet, control DM and cont PPI prn. [id number] [facility] (Adult Med) [address] [place] [address] 05/26/2018 09:45:55 05/30/2018 10:05:02 Type 1 diabetes mellitus 39701734 E10.9 pt reports blood sugars in 100s, but few months ago was hospitaliz ed for DKA. discussed control, frequent testing, bring meter to next visit. Dysuria-fr equency syndrome 1854729 R30.0 w/ DM, tx for UTI, will get cx. discussed controllin g glucose to minimize infections . Generalize d anxiety disorder 64310512 F41.1 reports no anxiety attacks, says sertraline working. Chest pain 05210378 R07. 89 not likely cardiac, but w/ DM recommend stress test. Influenza vaccine needed 5337235712 106 Z23 Constipation 52476022 K5 9.00 discussed how this can contribute to chest pain sxs. Advised her to increase fiber, start stool softener and/or miralax, all available OTC. Drink plenty of water. possible gastropare sis from uncontroll ed DM. [id number] MD Malou Adames (Adult Med) [address] [place] [address] 08/10/2018 08:25:31 08/11/2018 09:08:16 Nausea 987285331 R11.0 pt feels similar to when she was last , neg tests at home. Neg here, will check for other causes of nausea including UTI. Also recommend pt monitor glucose closely since she has high levels in her urine w/c doesn't coincide w/ her glucose values of 100-200s. One of the hospitalis t notes mentioned suspected gastropare sis. We will evaluate with gastric emptying study if negative for Amenorrhea 00760099 N91. 2 pt feels similar to when she was last , neg tests at home. Neg here as well. Recommend serum Hcg quantitati ve. Advised her to maintain tight glucose control. Make appt to see gynecologi st for amenorrhea whether or not she is . Type 1 jordyn betes mellitus 12187395 E10.69 recurrent UTI, DKA admission to hospital in late May and Jun. signed out AMA 06/26. She had glucose in 300s during hospital stay, A1c of 9.4% Abnormal urinalysis 1672 38495 R82.90 trace LE, will send for cx due to recurrent hospitaliz ations for UTI and DKA. Glycosuria 48715230 R81 pt reports glucose in 100-200s at home since she was d/c from hospital. Advised her to drink more water, call her endocrinol ogist to discuss high glucose in urine. [id number] Vicky Westfall ([employer]) [address] [place] [address] 08/15/2018 14:14:40 08/16/2018 11:45:52 Gynecologic examination 68243735 Z01.419 First pap today Fertility care 188518618 Z31.84 Pt. not preventing . Pt. encouraged to get glucose under tight control prior to getting . Pt. also advised to start taking vitamins now because need to be taking them before she would know she is . Rx sent to pharmacy. Irregular periods 988403 07 N92.6 Pt. missed her period in Jun. and July. She had negative serum beta hCG quant on 08/10/18. On period now. Will check hormones d/t Type I DM as well. [id number] Vicky Westfall ([employer]) [address] [place] [address] 10/19/2018 10:07:32 10/20/2018 13:18:27 Missed period 38218887 N92.5 UTP positive. Routine an tenatal care 665227495 Z34.[address] [facility], beta hCG quant was 7000 and US showed a 2.5 mm GS with yolk sac. Repeat US ordered. Pre-existi ng type 1 diabetes mellitus in 206525955 O24.019 Poor glucose control. HbA1c 9.4 at [facility] on 10/05/18. DKA x 3 this year (05/21=[facility], 06/21 = [facility], 10/19 = [facility] transferre d to [facility]). Referral to [facility] for transfer of care generated, marii. [id number] Vicky Westfall ([employer]) [address] [place] [address] 10/26/2018 10:57:05 10/27/2018 11:52:06 Routine care 045314203 Z34.81 Repeat US not until Sat at [facility]. [facility] appt. pending viable by US. RTTee Butcher. for results and POC, marii. [id number] [facility] Torres (Adult Med) [address] [place] [address] 11/09/2018 08:36:19 11/10/2018 10:43:27 Type 1 diabetes mellitus 21878134 E10.69 recurrent UTI, DKA admission to hospital in late May and Jun. signed out AMA 06/26. She had glucose in 300s during hospital stay, A1c of 9.4%. Then hospitaliz ed w/ DKA in October, then hyperemesi s and metabolic alkalosis w/ DKA last week and again left AMA, but pt did not acknowledg e that. Reviewed most recent hospital records at [facility] and [facility]. Advised her to keep f/u with endocrine this Wednesday; ask them about pneumonia vaccine. Impacted c erumen in right ear 5272877968 676398 H61.21 resolved w/ lavage Mood disorder 99505278 F 40 pt has very flat affect and denies any problems when she is here for visits but has had 4 hospitaliz ations for DKA. She would benefit from psychology /psychiatr y referral. Revisit at f/u. [id number] Vicky Westfall ([employer]) [address] [place] [address] 11/09/2018 14:43:07 11/10/2018 11:37:49 Missed miscarriage 91206190 O02.1 While in the hospital for DKA at [facility] pt. [place] [address] [place] [address] confirming miscarriag e. She has not had any vaginal bleeding. Dx d/w pt. Option of waiting up to 4 weeks for body to expel tissue, placing a medication inside the vagina to precipitat e expulsion of tissue, and dilation and curettage d/w pt. Pt. wants the dilation and curettage. Benefits, risks, and alternativ es to suction dilation and curettage d/w pt. Pt. expressed understand ing. All pt. questions answered. Pt. scheduled for suction D&C tomorrow pending insurance authorizat ion. Pre and post-OP expectatio ns discussed. [id number] Vicky Westfall ([employer]) [address] [place] [address] 11/30/2018 09:44:42 11/30/2018 14:02:55 Oral contraceptive prescribed 763611061 Z30.011 control options discussed. Pt. wants pills. Rx sent to pharmacy. Instructio ns discussed. Possible changes in blood glucose with OCPs discussed. Pt. to manage glucose accordingmarii pena. Postoperative visit 9134 69186 Z09 Pt. recovered. Pathology shows immature POCs, dwp. Pt. does not desire at this time. See below. [id number] Vicky Westfall ([employer]) [address] [place] [address] 10/05/2019 11:46:51 10/06/2019 09:08:38 Missed period 51503274 N92.5 UPT was negative, dwp. If pt. misses next period, take UPT at home and come in for TSH, FSH, prolactin check, dwp. Pt. already does not drink alcohol and she is taking gummie vitamins. [id number] Vicky Westfall (SUPER[employer]) [address] [facility] [place] [address] 11/16/2019 12:03:11 11/21/2019 09:33:49 Amenorrhea 89889814 N91.2 UPT is negative, dwp. Will check hormones and do a progestero ne challenge. Rx sent. Lokesh ma discussed. [id number] Vicky Simental [facility] ([employer]) [address] [place] [address] 12/12/2019 08:01:47 12/13/2019 19:23:43 Irregular periods 79028887 N92.6 TSH, FSH, and prolactin within normal limits, dwp. If no period around Jan.08, pt. to take test and if negative, take the provera, dwp. Pt. expressed understand ing and agreement. Health Concerns Section Related Observation LastModified by Organization Detai ls LastModified Time None Recorded Concern Status LastModified by Organization Details LastModified Time None Recorded Advance Directives Directive N: Payers Encounter Date Sequence Insurance Name Policy Number Policy Garcia Covered Member ID Garcia Member ID Guarantor Name 11/09/2018 1 [facility] (MEDICAID HM) [id number] Karina Fuchs [id number] Karina Fuchs 11/30/2018 1 [facility] (MEDICAID HMO) [id number] Karina Fuchs [id number] Karina Fuchs 10/05/2019 1 [facility] (MEDICAID HMO) [id number] Karina Fuchs [id number] Karina Fuchs 11/16/2019 1 [facility] (MEDICAID HMO) [id number] Karina Fuchs [id number] Karina Fuchs 12/12/2019 1 [facility] (MEDICAID HMO) [id number] Karina Fuchs [id number] Karina Fuchs Notes Date Note Type Note Provider Name and Address Organization Details Recorded Time 11/09/2018 text/html Pt. presents for follow-up to decreasing beta hCG quant with no bleeding. She denies any pain. Vicky Simental [place], [place] 11/09/2018 16:57:54 11/09/2018 text/html Went to [facility] then [facility]; pt says she was d/c yesterday for hyperemesis, had miscarriage. not planned. interested in control.has appt w/ endocrine Wednesday (Dr. Sanches)glucose in low 100s since d/c; checking QID. No med changes. She hasn't made any dietary changes.told A1c was 8.7% denies any constipation, GERD, diarrhea, N/V since she was d/c. Carrie Joseph PA-C Attn: Accounting,[address] [place], [address], [place] 11/09/2018 11:24:58 11/30/2018 text/html Pt presents for post OP visit 2 weeks s/p suction D&C for a missed ab. She denies pain and bleeding. She has no complaints but does want to get on control. Vicky collazo, [place] - SI 11/30/2018 10:12:44 10/05/2019 text/html Pt presents with c/o missed period. She has not been taking her OCPs since 03/2019 because it messes with her blood sugar. She is using condoms. It has been 36 days since her last cycle and this has never happened to her before. Vicky collazo, [place] - [place] 10/05/2019 12:26:16 11/16/2019 text/html Pt. presents wit h c/o no period for three months. She is sexually active and not on any control. Vicky collazo, TRISH Theodore SI 11/20/2019 11:46:11 12/12/2019 text/html Telephone visit due to COVID-19 pandemic. Pt. called with results of blood work done for amenorrhea. She was supposed to take provera after an negative UPT in office on 11/16/19. However, the patient never took the medication and started her period on her own 12/09/19. She is not on any control. Vicky collazo, TRISH Theodore SI 12/12/2019 15:15:22 OBGyn Episode Ob Episode Information Episode Created Date Number of Fetuses Patient Bloodtype Patient rh Status Prepregnancy Weight lbs Domestic Partner Domestic Partner Phone Father Name Machine Helper Status 08/16/19 19 1 CLOSED Fetus Data First Name Last Name Admitted to NICU Weight (g) Sex Living Outcome Pediatric Complications Fetus ID Race Codes Race Delivery Type F Full Term [id number] Héctor Calculation Initial Héctor Date Initial Exam Date Initial Exam Provider Initial Ultrasound Date Last Menstrual Period Date Ultra Sound Weeks Gestation 0 Eighteen To Twenty Week Héctor Update Ultra Sound Date Fundal Height At Umbil Quickening Date Ultra Sound Latest Weeks Gestation Final Héctor Confirmed By Final Héctor Confirmed Date Final Héctor Date Ultra Sound Latest Days Gestation 0 [...] Domestic Partner Domestic Partner Phone Father Name Machine Helper Status 12/01/19 19 1 CLOSED Fetus Data First Name Last Name Admitted to NICU Weight (g) Sex Living Outcome Pediatric Complications Fetus ID Race Codes Race Delivery Type , Spontane ous [id number] Héctor Calculation Initial Héctor Date Initial Exam Date Initial Exam Provider Initial Ultrasound Date Last Menstrual Period Date Ultra Sound Weeks Gestation 0 Eighteen To Twenty Week Héctor Update Ultra Sound Date Fundal Height At Umbil Quickening Date Ultra Sound Latest Weeks Gestation Final Héctor Confirmed By Final Héctor Confirmed Date Final Héctor Date Ultra Sound Latest Days Gestation 0 [...] Domestic Partner Domestic Partner Phone Father Name Machine Helper Status 10/20/19 19 1 O Positive sally link CLOSED Fetus Data First Name Last Name Admitted to NICU Weight (g) Sex Living Outcome Pediatric Complications Fetus ID Race Codes Race Delivery Type [id number] Héctor Calculation Initial Héctor Date Initial Exam Date Initial Exam Provider Initial Ultrasound Date Last Menstrual Period Date Ultra Sound Weeks Gestation 05/13/2019 10/19/2018 [email or web address] 08/06/2018 0 Eighteen To Twenty Week Héctor Update Ultra Sound Date Fundal Height At Umbil Quickening Date Ultra Sound Latest Weeks Gestation Final Héctor Confirmed By Final Héctor Confirmed Date Final Héctor Date Ultra Sound Latest Days Gestation 0 05/13/19 20 0 Pre- Flowsheet Flowsheet Date 10/19/2018 Regalado Score Blood Edema Fundus Height Fundus Units Glucose Ketones Leukocytes Nitrite Labor Signs Protein Cervic Dilation Cervic Effacement Cervic Station Type Weight in lbs Pre/Post Dialysis Refused Weight 134.48136917028 BP Diastolic BP Location Tested BP Systolic BP Type 80 108 sitting Fetus Heart Rate Present Fetus Movement Comments Flowsheet Date 10/26/2018 Regalado Score Blood Edema Fundus Height Fundus Units Glucose Ketones Leukocytes Nitrite Labor Signs Protein Cervic Dilation Cervic Effacement Cervic Station Type Weight in lbs Pre/Post Dialysis Refused Weight 138.676130951395 BP Diastolic BP Location Tested BP Systolic BP Type 72 110 sitting Fetus Heart Rate Present Fetus Movement Comments Flowsheet Date 11/09/2018 Regalado Score Blood Edema Fundus Height Fundus Units Glucose Ketones Leukocytes Nitrite Labor Signs Protein Cervic Dilation Cervic Effacement Cervic Station Type Weight in lbs Pre/Post Dialysis Refused With clothes 132.608019024481 BP Diastolic BP Location Tested BP Systolic BP Type 78 R arm 122 sitting Fetus Heart Rate Present Fetus Movement Comments Flowsheet Date 11/09/2018 Regalado Score Blood Edema Fundus Height Fundus Units Glucose Ketones Leukocytes Nitrite Labor Signs Protein Cervic Dilation Cervic Effacement Cervic Station Type Weight in lbs Pre/Post Dialysis Refused Weight 136.113972251214 BP Diastolic BP Location Tested BP Systolic BP Type 60 L arm 108 sitting Fetus Heart Rate Present Fetus Movement Comments Flowsheet Date 11/30/2018 Regalado Score Blood Edema Fundus Height Fundus Units Glucose Ketones Leukocytes Nitrite Labor Signs Protein Cervic Dilation Cervic Effacement Cervic Station Type Weight in lbs Pre/Post Dialysis Refused Weight 142.421643722889 BP Diastolic BP Location Tested BP Systolic BP Type 74 110 sitting Fetus Heart Rate Present Fetus Movement Comments Menstrual History Last Menstrual Date Menses Monthly On Bcp Conception Prior Menses Frequency Hcg Plus Date Menarche Onset Age 0408/06/2018 true 5 9 12 Genetic Screening And Infection History Question Response Note Patient's Age Will Be 35 Yea rs Or Older At Estimated Date of Delivery false Thalassemia (Yi, Sri Lankan, Mediterranean, Or Background): MCV < 80 false Neural Tube Defect (Meningom yelocele, Spina Bifida, Or Anencephaly) false Congenital Heart Defect false Down Syndrome false Tiburcio-Sachs (eg, Pentecostal, Cajun, Hebrew-Payne) f alse Darron Disease false Sickle Cell Disease Or Trait () false Hemophilia Or Other Blood Disorders false Muscular Dystrophy false Cystic Fibrosis false [place]'s Chorea false Mental Retardation/Autism false Other Inherited [...]
--- OUTSIDE RECORDS SUMMARY | 2024-05-10 18:08 | XMS_ITS | Encounter Summary ---
Author Organization [facility] Address [address] [place] [address]. [place] [address] [place] [address] Care Team Providers Care Ear Nose Throat Physician Name Role Phone Unavailable Primary Care Provider Unavailabl e Encounter Details Date Type Department Care Team (Late st Contact Info) Description 01/07/2017 Orders Only ANY CONVERSION ONE [place], [place] [id number] , Generic Conversion, Social History Tobacco Use [...] GLUCOSE - MCCORMICK DOCKED DEVICE Routine 01/07/2017 6:29 PM CDT documented in this encounter Results * (ABNORMAL) POCT glucose (01/07/2017 6:29 PM CDT) GLUCOSE POC 129(H) 70 - 109 01/07/2017 5:36 PM CDT [facility] ORDERS INTERFACE WHOLE BLOOD SPECIMEN / Unknown 01/07/2017 6:29 PM CDT 01/07/2017 5:36 PM CDT us Generic Conversion Md PASTRANA POCT ORDERABLES - DEVIC E Final Result [facility] ORDERS INTERFACE US documented in this encounter Visit Diagnoses Not on filedocumented in this encounter
--- OUTSIDE RECORDS SUMMARY | 2024-05-10 18:08 | XMS_ITS | Encounter Summary ---
Author Organization [facility] Address [address] [place] [address]. [place] [address] [place] [address] Care Team Providers Care Delicatessen Manager Name Role Phone Emeraldaniceto Carrie Finch PA-C Primary Care Provider Encounter Details Date Type Department Care Team (Latest Contact Info) Description 04/11/2020 Scan HEALTH INFO SRVCS Scanned, Documents Social [...] COVID-19? No / Unsure 04/17/2020 1:20 PM JOB ANALYSIS MANAGER documented as of this encounter Functional Status * RETIRED Are you deaf or do you have serious difficulty hearing Answer Date of Assessment Author Status No 06/25/2019 6:34 AM JOB ANALYSIS MANAGER Activ e * RETIRED Are you blind or do you have serious difficulty seeing, even when wearing glasses? Answer Date of Assessment Author Status No 06/25/2019 6:34 AM JOB ANALYSIS MANAGER Activ e * Do you have serious difficulty walking or climbing stairs? Answer Date of Assessment Author Status No 06/25/2019 6:34 AM JOB ANALYSIS MANAGER Obdulia Guerrier RN Active * Do you [...] on filedocumented in this encounter Care Teams Delicatessen Manager Relationship Specialty Start Date End Date Carrie Joseph PA-C PCP - General PHYSICIAN MED ASST 01/11/19 documented as of this encounter
--- OUTSIDE RECORDS SUMMARY | 2024-05-10 18:08 | XMS_ITS | Encounter Summary ---
Author Organization [facility] Address [address] [place] [address]. [place] [address] [place] [address] Care Team Providers Care Sleep Lab Technician Name Role Phone Emeraldaniceto Carrie Josette BETTS Primary Care Provider Reason for Visit * Reason Comments Ultrasound (SCAN) Encounter Details Date Type Department Care Team ([facility] Contact Info) Description 04/02/2020 Scan HEALTH INFO SRVCS Scanned, Documents Ultrasound [...] Assessment Author Status No 06/25/2019 6:34 AM E COMMERCE MANAGER Activ e * RETIRED Are you blind or do you have serious difficulty seeing, even when wearing glasses? Answer Date of Assessment Author Status No 06/25/2019 6:34 AM E COMMERCE MANAGER Activ e * Do you have [...] Associated Diagnosis Comments ULTRASOUND GENERIC (SCAN ORDER) 04/02/2020 documented in this encounter Results * ULTRASOUND GENERIC (04/02/2020) Anatomical Region Laterality Modality Other 04/02/2020 Narrative 04/02/2020 Ordered by an unspecified provider. us Documents Scanned SCANNING Final Result documented in this encounter Visit Diagnoses Not on filedocumented in this encounter Care Teams Sleep Lab Technician Relationship Specialty Start Date End Date Carrie Joseph PA-C PCP - General PHYSICIAN MANAGER AUTOMOTIVE 01/11/19 documented as of this encounter
--- OUTSIDE RECORDS SUMMARY | 2024-05-10 18:08 | XMS_ITS | Encounter Summary ---
Author Organization [facility] Address [address] [place] [address]. [place] [address] [place] [address] Care Team Providers Care Director Of Development And Marketing Name Role Phone Unavailable Primary Care Provider Unavailabl e Encounter Details Date Type Department Care Team (Latest Contact Info) Description 10/24/2017 Abstract [facility] Medical Group Social History Tobacco [...]
--- OUTSIDE RECORDS SUMMARY | 2024-05-10 18:08 | XMS_ITS | Encounter Summary ---
Author Organization [facility] Address [address] [place] [address]. [place] [address] [place] [address] Care Team Providers Care Fuse Coiler Name Role Phone Unavailable Primary Care Provider Unavailabl e Encounter Details Date Type Department Care Team (Late st Contact Info) Description 01/07/2017 Orders [place] [address] , Generic Conversion, Social History [...] Procedure Name Priority Date/Time Associated Diagnosis Comments URINE BACTERIA CULTURE Routine 01/07/2017 1:45 PM CDT documented in this encounter Results * CULTURE URINE (01/07/2017 1:45 PM CDT) SPEC DESCRIPTION URINE 01/07/2017 12:48 PM CDT [facility] SPECIAL REQUESTS NO SPECIAL REQUEST 01/07/2017 12:48 PM CDT [facility] CULTURE RESULT >25,000 TO 50,000 CFU/mL BETA STREPTOCOCCUS GROUP B 01/09/2017 10:02 PM CDT [facility] URINE SPECIMEN / Unknown 01/07/2017 1:45 PM CDT 01/07/2017 1:02 PM CDT Comment:URINE CLEAN CATCH Narrative Organism Antibiotic Method Susceptibility Beta streptococcus group b CEFOTAXIME ORQUIDEA (KB) Sensitive Beta streptococcus group b LEVOFLOXACIN ORQUIDEA (KB) Sensitive Beta streptococcus group b PENICILLIN G ORQUIDEA (KB) Sensitive Beta streptococcus group b VANCOMYCIN ORQUIDEA (KB) Sensitive us Generic Conversion Md PASTRANA MICROBIOLOGY - GENERAL ORDERABLES Final Result Performing Organization Address City/State/[facility] Co de Phone Number [facility] [address] [place] [phone], [id number] documented in this encounter Visit Diagnoses Not on filedocumented in this encounter
--- OUTSIDE RECORDS SUMMARY | 2024-05-10 18:08 | XMS_ITS | Encounter Summary ---
Author Organization [facility] Address [address] [place] [address]. [place] [address] [place] [address] Care Team Providers Care Manager Biostatistics Name Role Phone Unavailable Primary Care Provider Unavailabl e Encounter Details Date Type Department Care Team (Late st Contact Info) Description 05/06/2017 Abstract [facility] [address] [place] [id number] Mann Ramirez MD Social History Tobacco Use Types Packs/Day Years Used Date Smoking Tobacco: Never Assessed Comments Unknown Sex and Gender Information Value Date Recorded Sex Assigned at Not on file Legal Sex Female 11:28 PM CDT Gender Identity Not on file Sexual Orientation Not on file documented as of this encounter Last Filed Vital Signs Vital Sign Reading Time Taken Comments Blood Pressure 98/62 05/06/2017 10:21 AM VACUUM WORKER Pulse 98 05/06/2017 10:21 AM VACUUM WORKER Temperature - - Respiratory Rate - - Oxygen Saturation - - Inhaled Oxygen Concentration - - Weight 51.3 kg (113 lb) 05/06/2017 10:21 AM VACUUM WORKER Height 154.9 cm (5' 1 ) 05/06/2017 10:21 AM VACUUM WORKER Body Mass Index 21.35 05/06/2017 10:21 AM VACUUM WORKER documented in this encounter Progress Notes * Mann Ramirez MD - 05/06/2017 10:00 AM CST Date: May 06, 2017 To Whom It May Concern: This is to advise that Karina Fuchs was seen in my office today, has been under my care, and 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 ___Mann Ramirez MD___ Electronically signed by:Loli Solis MA May 06 2017 10:48AM VACUUM WORKER Author * Mann Ramirez MD - 05/06/2017 10:00 AM CST Reason For Visit New Patient Visit Chief Complaint Patient is here today to establish care. She states she has been having issues with diabetes a lot and also hair loss. Since October she has been in the ER for DKA 13 times. She sees developer prover upholstering Dr Bhakta. DM, renal issues, school note, History of Present Illness HPI Free Text: needs note to return to school for the new semester, diabets under good control now but has been hospitalized a number of times for DKA, feels good today, Review of Systems Constitutional: negative. Head and Face: negative. Eyes: negative. ENT: negative. Cardiovascular: negative. Respiratory: negative. Gastrointestinal: negative. Genitourinary: negative. Musculoskeletal: negative. Integumentary negative. Psychiatric: negative. Neurological Negative. Endocrine muscle weakness. Family History Grandmother 1. Family history of hypertension (V17.49) (Z82.49) 2. Family history of Heart problem Grandfather 3. Family history of Alzheimer's disease (V17.2) (Z82.0) 4. Family history of cerebrovascular accident (CVA) (V17.1) (Z82.3) Current Meds 1. HumaLOG 100 UNIT/ML Subcutaneous [...] Loli Solis; 05/06/2017 10:26:18 AM Vitals Recorded: 06May2017 10:21AM Heart Rate 98 Systolic 98 Diastolic 62 O2 Saturation 99 Height 5 ft 1 in Weight 113 lb BMI Calculated 21.35 BSA Calculated 1.48 Physical Exam Constitutional General appearance: No acute distress, well appearing and well nourished. Ears, Nose, Mouth, and Throat External inspection of ears and nose: Normal. Otoscopic examination: Tympanic membranes translucent with normal light reflex. Canals patent without erythema. Hearing: Normal. Oropharynx: Normal with no erythema, edema, exudate or lesions. Neck Neck: Supple, symmetric, trachea midline, no masses. Thyroid: Normal, no thyromegaly. Pulmonary Auscultation of lungs: Clear to auscultation. Cardiovascular Auscultation of heart: Normal rate and rhythm, normal S1 and S2, no murmurs. Abdomen Abdomen: Non-tender, no masses. Lymphatic Palpation of lymph nodes in other areas: No lymphadenopathy. Musculoskeletal Gait and station: Normal. Range of motion: Normal. Skin Skin and subcutaneous tissue: Normal without rashes or lesions. Neurologic Sensation: No sensory loss. Psychiatric Judgment and insight: Normal. Orientation to person, place, and time: Normal. Recent and remote memory: Intact. Mood and affect: Normal. Counseling The patient was counseled regarding impressions, risks and benefits of treatment options and importance of compliance with treatment. Assessment 1. Renal diabetes (271.4) (E74.8) 2. Diabetes mellitus (250.00) (E11.9) Plan will sign for records from endocrine, will need urology followup from december hospitalization with [facility] urology, Signatures Electronically signed by : Mann Ramirez M.D.; May 06 2017 10:55AM VACUUM WORKER (Author) documented in this encounter Plan of Treatment Not on file documented as of this encounter Visit Diagnoses Not on filedocumented in this encounter
--- OUTSIDE RECORDS SUMMARY | 2024-05-10 18:08 | XMS_ITS | Encounter Summary ---
Author Organization [facility] Address [address] [place] [address]. [place] [address] [place] [address] Care Team Providers Care Stitcher Set Up Operator Automatic Name Role Phone Unavailable Primary Care Provider Unavailabl e Encounter Details Date Type Department Care Team (Late st Contact Info) Description 01/07/2017 Orders [place] [address] , Generic Conversion, Social History [...] Procedure Name Priority Date/Time Associated Diagnosis Comments BLOOD GAS, VENOUS STAT 01/07/2017 1:5 6 PM CDT documented in this encounter Results * (ABNORMAL) Blood gas, venous (01/07/2017 1:56 PM CDT) PH VENOUS 7.45(H) 7.32 - 7.42 01/07/2017 1:09 PM CDT [facility] PCO2 32.2(L) 41 - 51 MMHG 01/07/2017 1:09 PM CDT [facility] PO2 VENOUS 29.2 25 - 40 MM HG 01/07/2017 1:09 PM CDT [facility] BICARB VENOUS 21.8(L) 24 - 28 MMOL/L 01/07/2017 1:09 PM CDT [facility] TCO2 22.8(L) 25 - 40 MMOL/L 01/07/2017 1:09 PM CDT [facility] BASE DEFICIT VENOUS 0.9 0 - 2 MMOL/L 01/07/2017 1:09 PM CDT [facility] CARBONIC ACID VENOUS 1.0 MMOL/L 01/07/2017 1:09 PM CDT [facility] OXYGEN STATUS ROOM AIR 01/07/2017 1:09 PM CDT [facility] LITER FLOW ROOM AIR L/M 01/07/2017 1:09 PM CDT [facility] 01/07/2017 1:56 PM CDT 01/07/2017 12:58 PM CDT us Generic Conversion Md PA[facility]NA LABORAT[facility] Final R esult [facility] [address] [place] [address], [id number] documented in this encounter Visit Diagnoses Not on filedocumented in this encounter
--- OUTSIDE RECORDS SUMMARY | 2024-05-10 18:08 | XMS_ITS | Encounter Summary ---
Author Organization [facility] Address [address] [place] [address]. [place] [address] [place] [address] Care Team Providers Care Claims Adjuster Supervisor Name Role Phone Unavailable Primary Care Provider Unavailabl e Encounter Details Date Type Department Care Team (Late st Contact Info) Description 06/15/2017 Orders Only ANY CONVERSION ONE [place], [place] [id number] Md, Generic Conversion, Social History Tobacco Use [...] Procedure Name Priority Date/Time Associated Diagnosis Comments ORGANISM ID SENSITIVITY Routine 09/30/2016 11:24 AM CDT documented in this encounter Results * ORGANISM ID SENSITIVITY (09/30/2016 11:24 AM CDT) SPEC DESCRIPTION GENITAL 09/29/2016 2:42 PM CDT [facility] SPECIAL REQUESTS NO SPECIAL REQUEST 09/29/2016 2:42 PM CDT [facility] CULTURE RESULT BETA STREPTOCOCCUS GROUP B ISOLATED 09/30/2016 11:24 AM CDT [facility] GENITAL SWAB / Unknown 09/29/2016 2:42 PM CDT Comment:VAGINAL SPECIMEN Narrative Organism Antibiotic Method Susceptibility Beta streptococcus group b CLINDAMYCIN ORQUIDEA (KB) Resistant Beta streptococcus group b ERYTHROMYCIN ORQUIDEA (KB) Resistant us Generic Conversion Md PASTRANA MICROBIOLOGY - GENERAL ORDERABLES Final Result Performing Organization Address City/State/[facility] Co de Phone Number [facility] [address] [place] [address], [id number] documented in this encounter Visit Diagnoses Not on filedocumented in this encounter
--- OUTSIDE RECORDS SUMMARY | 2024-05-10 18:08 | XMS_ITS | Encounter Summary ---
Author Organization [facility] Address [address] [place] [address]. [place] [address] [place] [address] Care Team Providers Care Convalescent Sitter Name Role Phone Unavailable Primary Care Provider Unavailabl e Encounter Details Date Type Department Care Team (Latest Contact Info) Description 11/08/2017 Abstract [facility] Medical Group Social History Tobacco [...]
--- OUTSIDE RECORDS SUMMARY | 2024-05-10 18:08 | XMS_ITS | Encounter Summary ---
Author Organization [facility] Address [address] [place] [address]. [place] [address] [place] [address] Care Team Providers Care Creative Arts Music Therapist Name Role Phone Unavailable Primary Care Provider Unavailabl e Encounter Details Date Type Department Care Team (Late st Contact Info) Description 01/07/2017 Orders [place] [address] , Generic Conversion, Social History Tobacco Use [...] Procedure Name Priority Date/Time Associated Diagnosis Comments ETHANOL STAT 01/07/2017 3:27 PM CDT documented in this encounter Results * ETHANOL (01/07/2017 3:27 PM CDT) ALCOHOL S/P/B ZERO 0 G/DL 01/07/2017 2:52 PM CDT [facility] SERUM OR PLASMA SPECIMEN / Unknown 01/07/2017 3:27 PM CDT 01/07/2017 2:28 PM CDT us Generic Conversion Md PASTARNA LABORATORY Final R esult [facility] [address] [place] [id number], [id number] documented in this encounter Visit Diagnoses Not on filedocumented in this encounter
--- OUTSIDE RECORDS SUMMARY | 2024-05-10 18:08 | XMS_ITS | Encounter Summary ---
Author Organization [facility] Address [address] [place] [address]. [place] [address] [place] [address] Care Team Providers Care Fine Grade Operator Name Role Phone EmeraldCarrie moreland Josette BETTS Primary Care Provider Reason for Visit * Reason Comments Image (SCAN) Encounter Details Date Type Department Care Team (Latest Contact Info) Description 01/01/2020 Scan HEALTH INFO SRVCS Scanned, Documents Image (SCAN) Social History Tobacco Use Types Packs/Day [...] Assessment Author Status No 06/25/2019 6:34 AM CASE FINISHING MACHINE ADJUSTER Activ e * RETIRED Are you blind or do you have serious difficulty seeing, even when wearing glasses? Answer Date of Assessment Author Status No 06/25/2019 6:34 AM CASE FINISHING MACHINE ADJUSTER Activ e * Do you have serious [...] Procedure Name Priority Date/Time Associated Diagnosis Comments IMAGE GENERIC 01/01/2020 IMAGE GENERIC 01/01/2020 documented in this encounter Results * IMAGE GENERIC (01/01/2020) Anatomical Region Laterality Modality Other 01/01/2020 Narrative 01/01/2020 Ordered by an unspecified provider. us Documents Scanned SCANNING Final Result * IMAGE GENERIC (01/01/2020) Anatomical Region Laterality Modality Other 01/01/2020 Narrative 01/01/2020 Ordered by an unspecified provider. us Documents Scanned SCANNING Final Result documented in this encounter Visit Diagnoses Not on filedocumented in this encounter Care Teams Fine Grade Operator Relationship Specialty Start Date End Date Carrie Joseph PA-C PCP - General PHYSICIAN SAND CASTER 01/11/19 documented as of this encounter
--- OUTSIDE RECORDS SUMMARY | 2024-05-10 18:08 | XMS_ITS | Encounter Summary ---
Author Organization [facility] Address [address] [place] [address]. [place] [address] [place] [address] Care Team Providers Care Lactation Nurse Name Role Phone EmeraldCarrie moreland Josette BETTS Primary Care Provider Reason for Visit * Auth/Cert Specialty Diagnoses / Procedures Referred By Rachael frey Referred To Contact Diagnoses MISSED AB Procedures SURG TX MISSED ,1ST TRIMESTER DILATATION & CURETTAGE SUCTION Referral ID Status Reason Start Date Expiration Date Visits Re quested Visits Authorized [id number] 1 1 Encounter Details Date Type Department Care Team (Latest Contact Info) Description 04/24/2020 7:52 AM CIGARETTE SELLER - 04/24/2020 12:03 PM [facility] Hospital Encounter [facility] [address] [place] [address] Ector Smith MD [address] [place] [address] Discharge Disposition: Home or Self [...] COVID-19? No / Unsure 04/24/2020 7:52 AM CIGARETTE SELLER documented as of this encounter Last Filed Vital Signs Vital Sign Reading Time Taken Comments Blood Pressure 116/76 04/24/2020 11:50 AM CIGARETTE SELLER Pulse 100 04/24/2020 11:50 AM CIGARETTE SELLER Temperature 36.2 ??C (97.2 ??F) 04/24/2020 11:[address] Respiratory Rate 18 04/24/2020 11:50 AM CIGARETTE SELLER Oxygen Saturation 100% 04/24/2020 11:50 AM CIGARETTE SELLER Inhaled Oxygen Concentration - - Weight 69.9 kg (154 lb) 04/22/2020 10:21 AM CIGARETTE SELLER Height 154.9 cm (5' 1 ) 04/22/2020 10:21 AM CIGARETTE SELLER Body Mass Index 29.1 04/22/2020 10:21 AM CIGARETTE SELLER documented in this encounter Functional Status * RETIRED Are you deaf or do you have serious difficulty hearing Answer Date of Assessment Author Status No 06/25/2019 6:34 AM CIGARETTE SELLER Activ e * RETIRED Are you blind or do you have serious difficulty seeing, even when wearing glasses? Answer Date of Assessment Author Status No 06/25/2019 6:34 AM CIGARETTE SELLER Activ e * Do you have serious difficulty walking or climbing stairs? Answer Date of Assessment Author Status No 06/25/2019 6:34 AM CIGARETTE SELLER Obdulia Guerrier RN Active * Do you have difficulty dressing or bathing? Answer Date of Assessment Author Status No 06/25/2019 6:34 AM CIGARETTE SELLER Obdulia Guerrier RN Active * Because of a physical, mental, or emotional condition, do you have difficulty doing errands alone such as visiting a doctor's office or shopping? Answer Date of Assessment Author Status No 06/25/2019 6:34 AM CIGARETTE SELLER Obdulia Guerrier RN Active documented as of this encounter Mental Status * Because of a physical, mental, or emotional condition, do you have serious difficulty concentrating, remembering, or making decisions? Answer Entry Date Author Status No 06/25/2019 6:34 AM Obdulia Rey RN Active documented in this encounter Discharge Instructions * Discharge Instructions* Cl You RN - 04/24/2020 11:20 AM CIGARETTE SELLER ANESTHESIA ADULT DISCHARGE INSTRUCTIONS The effects of [...] during the first week of May 2020. RETTE SELLER * Attachments The following attachments cannot be sent through Care Everywhere. * Dilation and Curettage (D and C) (Kittitian) * Dilation and Curettage Discharge Instructions (Kittitian) documented in this encounter Medications at Time [...] the patient's H&P: Patient was hospitalized at [facility] on 04/11/20 for vomiting and found to [...] during recuperation were discussed with the patient/family/personal personal service representative. Reasonable alternatives to the patient's proposed procedure/surgery including benefits, risks, and side effects related to the alternatives and the risks related to not receiving the proposed care were also discussed with the patient/family/personal personal service representative. Questions were answered and the patient/family/personal personal service representative verbalized understanding and desires to proceed. Cosigned by Ector Smith MD at 04/24/2020 11:53 AM CIGARETTE SELLER RETTE SELLER RETTE SELLER documented in this encounter OR Notes * [...] anesthesia which includes small risk of PE, WI, stroke, or even . She voiced understanding [...] was then adequately dilated up to 20 thai using Roberto dilators for the introduction of [...] Ector Smith MD at 04/24/2020 11:54 AM CIGARETTE SELLER RETTE SELLER RETTE SELLER RETTE SELLER Associated attestation - Ector Smith MD - 04/24/2020 11:54 AM CIGARETTE SELLER I was present for the entirety of the procedure(s). * Brief Op Note - Saumya Faulkner MD - 04/24/2020 11:08 AM CST [facility] Brief Op HSHSDILATATION & CURETTAGE SUCTION Procedure Note Karinasandi Selby Jfe 04/24/2020 1005 Procedure(s) (LRB): DILATATION & CURETTAGE SUCTION (N/A) Surgeon(s): MD Saumya Pat MD Breaker Table Worker: None Anesthesia: General Pre-Op Diagnosis: MISSED AB [...] Ector Smith MD at 04/24/2020 11:53 AM CIGARETTE SELLER RETTE SELLER RETTE SELLER RETTE SELLER documented in this encounter Plan of Treatment Not on file documented as of this encounter Procedures Procedure Name Priority Date/Time Associated Diagnosis Comments POCT GLUCOSE - MCCORMICK DOCKED DEVICE Routine 04/24/2020 11:10 AM CIGARETTE SELLER DILATATION & CURETTAGE SUCTION 04/24/2020 10:20 AM CIGARETTE SELLER MISSED AB POCT GLUCOSE - MCCORMICK DOCKED DEVICE Routine 04/24/2020 9:58 AM CIGARETTE SELLER TYPE & SCREEN Routine 04/24/2020 9:26 AM CIGARETTE SELLER BASIC METABOLIC PANEL Routine 04/24/2020 9:26 AM CIGARETTE SELLER CBC W/DIFF AUTOMATED Routine 04/24/2020 9:26 AM CIGARETTE SELLER PATHOLOGY Routine 04/24/2020 12:00 AM CIGARETTE SELLER documented in this encounter Results * (ABNORMAL) POCT glucose (04/24/2020 11:10 AM CIGARETTE SELLER) GLUCOSE POC 226(H) 70 - 109 04/24/2020 11:12 AM CIGARETTE SELLER [facility] 04/24/2020 11:1 0 AM CIGARETTE SELLER us Ector Smith MD POCT ORDERABLES - DEVICE F inal Result [facility] [address] [place] [address], [phone] * (ABNORMAL) POCT glucose (04/24/2020 9:58 AM CIGARETTE SELLER) GLUCOSE POC 303(H) 70 - 109 04/24/2020 10:09 AM [facility] Comment:RN Notified 04/24/2020 9:58 AM CIGARETTE SELLER [facility] Josef Smith MD POCT ORDERABLES - DEVICE F inal Result [facility] [address] [place] [address], [phone] * (ABNORMAL) CBC W/DIFF AUTOMATED (04/24/2020 9:26 AM CIGARETTE SELLER) WBC 8.9 4.0 - 10.8 x10'3/uL 04/24/2020 9:45 AM [facility] RBC 4.23 4.10 - 5.40 x10'6/uL 04/24/2020 9:45 AM [facility] HGB 12.9 12.0 - 16.0 G/DL 04/24/2020 9:45 AM [facility] HCT 38.4 36.0 - 47.0 % 04/24/2020 9:45 AM [facility] MCV 90.8 78.0 - 100.0 FL 04/24/2020 9:45 AM [facility] MCH 30.5 27.0 - 31.0 PG 04/24/2020 9:45 AM [facility] MCHC 33.6 33.0 - 36.0 G/DL 04/24/2020 9:45 AM CIGARETTE SELLER [facility] RDW 14.5 11.5 - 14.5 % 04/24/2020 9:45 AM [facility] PLT 399(H) 150 - 350 x10'3/uL 04/24/2020 9:45 AM [facility] MPV 9.0 7.4 - 10.4 FL 04/24/2020 9:45 AM [facility] ABS. NEUTROPHILS TOTAL 5.95 1.60 - 8.30 x10'3/uL 04/24/2020 9:45 AM CIGARETTE SELLER [facility] ABS. LYMPHOCYTES 2.00 0.80 - 4.70 x10'3/uL 04/24/2020 9:45 AM CIGARETTE SELLER [facility] ABS. MONOCYTES 0.76 0.00 - 1.50 x10'3/uL 04/24/2020 9:45 AM [facility] ABS. EOSINOPHILS 0.02 0.00 - 0.40 x10'3/uL 04/24/2020 9:45 AM CIGARETTE SELLER [facility] ABS. BASOPHILS 0.03 0.00 - 0.20 x10'3/uL 04/24/2020 9:45 AM [facility] ABS. IMMATURE GRANULOCYTES 0.15(H) 0.00 - 0.03 x10'3/uL 04/24/2020 9:45 AM [facility] ABS. NUCLEATED RBC'S 0.00 0.0 x10'3/uL 04/24/2020 9:45 AM [facility] 04/24/2020 9:26 AM CIGARETTE SELLER [facility] Josef Smith MD LABORATORY Final Resu lt [facility] [address] [place] [address], [phone] * (ABNORMAL) BASIC METABOLIC PANEL (04/24/2020 9:26 AM CIGARETTE SELLER) SODIUM S/P/B 133(L) 136 - 145 MMOL/L 04/24/2020 10:27 AM CIGARETTE SELLER [facility] POTASSIUM S/P/B 4.0 3.5 - 5.1 MMOL/L 04/24/2020 10:27 AM [facility] CHLORIDE S/P/B 99 98 - 107 MMOL/L 04/24/2020 10:27 AM [facility] CO2 27.3 21.0 - 32.0 MMOL/L 04/24/2020 10:27 AM [facility] GLUCOSE 270(H) 74 - 106 MG/DL 04/24/2020 10:27 AM [facility] BUN 10 7 - 18 MG/DL 04/24/2020 10:27 AM [facility] CREATININE S/P/B 0.48(L) 0.55 - 1.02 MG/DL 04/24/2020 10:27 AM [facility] CALCIUM S/P/B 8.9 8.5 - 10.1 MG/DL 04/24/2020 10:27 AM [facility] ANION GAP 6.7 5.0 - 15.0 MMOL/L 04/24/2020 10:27 AM [facility] Comment:REFERENCE RANGE NOT ESTABLISHED OSMOLALITY (CALC) 285 MOSM/KG 020 10:27 AM [facility] Comment:REFERENCE RANGE NOT ESTABLISHED EGFR NON-AFR. AMER. >90 >90 ML/MIN/1. 73 M2 04/24/2020 10:27 AM [facility] EGFR AFR. AMER. >90 >90 ML/MIN/1. 73 M2 04/24/2020 10:27 AM [facility] GFR NOTES GFR REFERENCE S: 04/24/2020 10:27 AM [facility] Comment: THE ESTIMATED GFR [...] FAILURE: <15 ml/min/1.73 m2 04/24/2020 9:26 AM CIGARETTE SELLER us Ector Smith MD LABORATORY Final Resu lt Performing Organization Address [facility] de Phone Number [facility] [address] [place] [address], [phone] * TYPE & SCREEN - Verify expiration date is current (04/24/2020 9:26 AM CIGARETTE SELLER) ABO/RH O POSITIVE 04/24/2020 10:26 AM CIGARETTE SELLER [facility] ANTIBODY SCREEN NEGATIVE 04/24/2020 10:26 AM CIGARETTE SELLER [facility] SAMPLE EXPIRATION 04/27/2020,2 359 04/24/2020 9:45 AM CIGARETTE SELLER [facility] 04/24/2020 9:26 AM CIGARETTE SELLER Ector Smith MD BLOOD BANK TEST ORDERABLES Final Result Performing Organization Address [facility] de Phone Number [facility] [address] [place] [address], [phone] * Pathology (04/24/2020 12:00 AM CIGARETTE SELLER) PATHOLOGY [facility] ? Department of Laboratory Medicine ?[address] [place] [address] ?[place] [address] ? , extension [phone] ? Pathology Report ? Surgical Pathology Report Name: KARINA MENJIVAR ? Specimen #: [id number] Age: 2 1995 (Age: 24) ?Location: [facility] Sex: F ?Procedure Date: 04/24/2020 Hospital #: [id number] ?Date Received: 04/24/2020 Date Reported: 04/29/2020 Provider: [...] quite firm. ??No parts are grossly identified. ??Chocolate Finisher tissue is submitted in cassettes 1 through 3. Please note: ??The specimen is accompanied by a disposition form. FINAL DIAGNOSIS: PRODUCTS OF CONCEPTION, CURETTAGE: ? - DECIDUAL TISSUE WITH DEGENERATIVE CHANGES AND CHORIONIC VILLI IDENTIFIED. Electronically Signed Out ? Kyrie Ocampo M.D. [facility] Tissue specimen (specimen) PRODUCTS OF CONCEPTION TISSUE SPECIMEN / Unknown 04/24/2020 10:54 AM CIGARETTE SELLER us Ector Smith MD PATHOLOGY/CYTOLOGY ORDERAB LES Final Result [facility] [address] [place] [address], [place] [phone] documented in this encounter Visit Diagnoses Not [...] disch home, Pre-Op Given 04/24/2020 9:29 AM CIGARETTE SELLER 100 mg doxycycline hyclate (VIBRA-TABS) tablet 200 mg 200 mg, Oral, Once, 1 dose, On Wed04/24/20 at 1145, Post-Op Given 04/24/2020 11:49 AM CIGARETTE SELLER 200 mg fentaNYL (SUBLIMAZE) injection 25 mcg [...] order set., Pre-Op Given 04/24/2020 10:07 AM CIGARETTE SELLER 6 Units Left Arm lactated ringers infusion at 10 mL/hr, Intravenous, Continuous, Starting on Wed04/24/20 at 0845, Until Wed04/24/20 at 1403, Pre-Op New Bag 04/24/2020 9:34 AM CIGARETTE SELLER 10 mL/hr ondansetron (ZOFRAN) injection 4 mg 4 mg, Intravenous, Every 8 hours PRN, Nausea, Starting on Wed04/24/20 at 0828, Until Wed04/24/20 at 1100, IV push over 2-5 minutes., Pre-Op Given 04/24/2020 9:30 AM CIGARETTE SELLER 4 mg ondansetron (ZOFRAN) injection 4 mg [...] Recently Administered Medications Times are shown in CIGARETTE SELLER. Scheduled Medication Order 04/22/2020 04/23/2020 04/24/2020 doxycycline [...] PACU documented in this encounter Care Teams Lactation Nurse Relationship Specialty Start Date End Date Carrie Joseph PA-C PCP - General PHYSICIAN AUTOMOTIVE PARTS SALESPERSON 01/11/19 documented as of this encounter
--- OUTSIDE RECORDS SUMMARY | 2024-05-10 18:08 | XMS_ITS | Encounter Summary ---
Author Organization [facility] Address [address] [place] [address]. [place] [address] [place] [address] Care Team Providers Care Fruit And Vegetable Packer Name Role Phone Emeraldaniceto Carrie Josette EBTTS Primary Care Provider Reason for Visit * Reason Comments Lab (SCAN) Encounter Details Date Type Department Care Team ([facility] st Contact Info) Description 04/16/2020 Scan [facility] [address] [place] [address] Scanned, Documents Lab (SCAN) Social History Tobacco Use Types Packs/Day [...] COVID-19? No / Unsure 04/22/2020 11:06 AM CEILING INSTALLER documented as of this encounter Functional Status * RETIRED Are you deaf or do you have serious difficulty hearing Answer Date of Assessment Author Status No 06/25/2019 6:34 AM CEILING INSTALLER Activ e * RETIRED Are you blind or do you have serious difficulty seeing, even when wearing glasses? Answer Date of Assessment Author Status No 06/25/2019 6:34 AM CEILING INSTALLER Activ e * Do you have serious difficulty walking or climbing stairs? Answer Date of Assessment Author Status No 06/25/2019 6:34 AM CEILING INSTALLER Obdulia Guerrier RN Active * Do you [...] Procedure Name Priority Date/Time Associated Diagnosis Comments OUTSIDE LAB COVID-19 (SCAN ORDER) Routine 04/16/2020 12:00 AM CEILING INSTALLER documented in this encounter Results * OUTSIDE LAB COVID-19 (SCAN) (04/16/2020 12:00 AM CEILING INSTALLER) 04/16/2020 us Documents Scanned SCANNING Final Result [facility] documented in this encounter Visit Diagnoses Not on filedocumented in this encounter Additional Health Concerns Infection Onset Date Last Indicated Resolved Time COVID-19 Rule Out 04/16/2020 04/22/2020 04/23/2020 3:31 PM CEILING INSTALLER documented as of this encounter Care Teams Fruit And Vegetable Packer Relationship Specialty Start Date End Date Carrie Joseph PA-C PCP - General PHYSICIAN GENERAL PEDIATRICIAN 01/11/19 documented as of this encounter
--- OUTSIDE RECORDS SUMMARY | 2024-05-10 18:08 | XMS_ITS | Encounter Summary ---
Author Organization [facility] Address [address] [place] [address]. [place] [address] [place] [address] Care Team Providers Care Facility Coordinator Name Role Phone Unavailable Primary Care Provider Unavailabl e Encounter Details Date Type Department Care Team (Late st Contact Info) Description 06/16/2017 Orders [place] [address] , Generic Conversion, Social History Tobacco Use [...] Procedure Name Priority Date/Time Associated Diagnosis Comments N. GONORRHOEAE PCR Routine 11/17/2016 2: 04 PM CDT documented in this encounter Results * N. GONORRHOEAE PCR (11/17/2016 2:04 PM CDT) N.GONORRHOEAE RNA TMA NEGATIVE NEGATIVE 11/17/2016 2:[address] [facility] SPECIMEN GENITAL 11/17/2016 4:[address] [facility] 11/17/2016 6:2 3 AM CDT us Generic Conversion Md PASTRANA LABORATORY Final R esult [facility] [address] [place] [address], [id number] documented in this encounter Visit Diagnoses Not on filedocumented in this encounter
--- OUTSIDE RECORDS SUMMARY | 2024-05-10 18:08 | XMS_ITS | Encounter Summary ---
Author Organization [facility] Address [address] [place] [address]. [place] [address] [place] [address] Care Team Providers Care Foundry Worker General Name Role Phone Unavailable Primary Care Provider Unavailabl e Encounter Details Date Type Department Care Team (Late st Contact Info) Description 12/26/2016 Orders [place] [address] , Generic Conversion, Social History Tobacco Use [...] POCT GLUCOSE - MCCORMICK DOCKED DEVICE Routine 12/26/2016 3:56 PM CDT documented in this encounter Results * (ABNORMAL) POCT glucose (12/26/2016 3:56 PM CDT) GLUCOSE POC 118(H) 70 - 109 12/26/2016 4:[address] [facility] ORDERS INTERFACE WHOLE BLOOD SPECIMEN / Unknown 12/26/2016 3:56 PM CDT 12/26/2016 4:36 PM CDT us Generic Conversion Md PASTRANA POCT ORDERABLES - DEVIC E Final Result [facility] ORDERS INTERFACE US documented in this encounter Visit Diagnoses Not on filedocumented in this encounter
--- OUTSIDE RECORDS SUMMARY | 2024-05-10 18:09 | XMS_ITS | Encounter Summary ---
Author Organization [facility] Address [address] [place] [address]. [place] [address] [place] [address] Care Team Providers Care Dietary Server Name Role Phone Unavailable Primary Care Provider Unavailabl e Encounter Details Date Type Department Care Team (Late st Contact Info) Description 12/25/2016 Orders [place] [address] , Generic Conversion, Social History [...] Date/Time Associated Diagnosis Comments BASIC METABOLIC PANEL TIMED 12/25/2016 9:50 AM CDT documented in this encounter Results * (ABNORMAL) BASIC METABOLIC PANEL (12/25/2016 9:50 AM CDT) SODIUM S/P/B 135 135 - 147 MMOL/L 12/25/2016 9:37 AM CDT [facility] POTASSIUM S/P/B 3.7 3.5 - 5.0 MMOL/L 12/25/2016 9:37 AM CDT [facility] CHLORIDE S/P/B 101 98 - 107 MMOL/L 12/25/2016 9:37 AM CDT [facility] CO2 25.2 22 - 29 MMOL/L 12/25/2016 9:37 AM CDT [facility] GLUCOSE 176(H) 70 - 109 MG/DL 12/25/2016 9:37 AM CDT [facility] BUN 2(L) 7 - 19 MG/DL 12/25/2016 9:37 AM CDT [facility] CREATININE S/P/B 0.57(L) 0.60 - 1.10 MG/DL 12/25/2016 9:37 AM CDT [facility] CALCIUM S/P/B 8.8 8.4 - 10.2 MG/DL 12/25/2016 9:37 AM CDT [facility] EGFR NON-AFR. AMER. 135 >60 ML/MIN/1.7 3 M2 12/25/2016 9:37 AM T [facility] EGFR AFR. AMER. 164 >60 ML/MIN/1.7 3 M2 12/25/2016 9:37 AM CDT [facility] ANION GAP 8.8 MMOL/L 12/25/2016 9:37 AM T [facility] OSMOLALITY (CALC) 271 MOSM/KG 12/25/2016 9:37 AM T [facility] PLASMA SPECIMEN / Unknown 12/25/2016 9:50 AM CDT 12/25/2016 8:51 AM CDT us Generic Conversion Md PASTRANA LABORATORY Final R esult [facility] [address] [place] [address], [id number] documented in this encounter Visit Diagnoses Not on filedocumented in this encounter
--- OUTSIDE RECORDS SUMMARY | 2024-05-10 18:09 | XMS_ITS | Encounter Summary ---
Author Organization [facility] Address [address] [place] [address]. [place] [address] [place] [address] Care Team Providers Care Account Clerk Name Role Phone Unavailable Primary Care Provider Unavailabl e Encounter Details Date Type Department Care Team (Late st Contact Info) Description 12/26/2016 Orders Only ANY CONVERSION ONE [place], [place] [id number] , Generic Conversion, Social History Tobacco Use [...] Name Priority Date/Time Associated Diagnosis Comments MAGNESIUM Routine 12/26/2016 6:18 AM CDT documented in this encounter Results * MAGNESIUM (12/26/2016 6:18 AM CDT) MAGNESIUM 1.8 1.7 - 2.2 MG/DL 12/26/2016 5:53 AM CDT [facility] SERUM OR PLASMA SPECIMEN / Unknown 12/26/2016 6:18 AM CDT 12/26/2016 5:21 AM CDT us Generic Conversion Md PASTRANA LABORATORY Final R esult [facility] [address] [place] [phone], [id number] documented in this encounter Visit Diagnoses Not on filedocumented in this encounter
--- OUTSIDE RECORDS SUMMARY | 2024-05-10 18:09 | XMS_ITS | Encounter Summary ---
Author Organization [facility] Address [address] [place] [address]. [place] [address] [place] [address] Care Team Providers Care Car Driver Name Role Phone Unavailable Primary Care Provider Unavailabl e Encounter Details Date Type Department Care Team (Late st Contact Info) Description 12/24/2016 Orders Only AYN CONVERSION ONE [place], [place] [id number] , Generic Conversion, Social History Tobacco Use [...] POCT GLUCOSE - MCCORMICK DOCKED DEVICE Routine 12/24/2016 3:09 PM CDT documented in this encounter Results * POCT glucose (12/24/2016 3:09 PM CDT) GLUCOSE POC 83 70 - 109 12/24/2016 2:13 PM CDT [facility] ORDERS INTERFACE WHOLE BLOOD SPECIMEN / Unknown 12/24/2016 3:09 PM CDT 12/24/2016 2:13 PM CDT us Generic Conversion Md PASTRANA POCT ORDERABLES - DEVIC E Final Result [facility] ORDERS INTERFACE US documented in this encounter Visit Diagnoses Not on filedocumented in this encounter
--- OUTSIDE RECORDS SUMMARY | 2024-05-10 18:09 | XMS_ITS | Encounter Summary ---
Author Organization [facility] Address [address] [place] [address]. [place] [address] [place] [address] Care Team Providers Care Foot Cutter Name Role Phone Unavailable Primary Care Provider Unavailabl e Encounter Details Date Type Department Care Team (Late st Contact Info) Description 12/25/2016 Orders [place] [address] , Generic Conversion, Social History Tobacco Use [...] Name Priority Date/Time Associated Diagnosis Comments MAGNESIUM TIMED 12/25/2016 5:15 AM CDT documented in this encounter Results * MAGNESIUM (12/25/2016 5:15 AM CDT) MAGNESIUM 1.7 1.7 - 2.2 MG/DL 12/25/2016 4:46 AM CDT [facility] Comment:RESULT QUESTIONABLE DUE TO HEMOLYSIS, CONSIDER RECOLLECTION. SERUM OR PLASMA SPECIMEN / Unknown 12/25/2016 5:15 AM CDT 12/25/2016 4:16 AM CDT us Generic Conversion Md PASTRANA LABORATORY Final R esult [facility] [address] [place] [address], [phone] documented in this encounter Visit Diagnoses Not on filedocumented in this encounter
--- OUTSIDE RECORDS SUMMARY | 2024-05-10 18:09 | XMS_ITS | Encounter Summary ---
Author Organization [facility] Address [address] [place] [address]. [place] [address] [place] [address] Care Team Providers Care Airborne Sensor Specialist Name Role Phone Unavailable Primary Care Provider Unavailabl e Encounter Details Date Type Department Care Team (Late st Contact Info) Description 12/25/2016 Orders Only ANY CONVERSION ONE [place], [place] [id number] , Generic Conversion, Social History Tobacco Use [...] POCT GLUCOSE - MCCORMICK DOCKED DEVICE Routine 12/25/2016 2:22 PM CDT documented in this encounter Results * (ABNORMAL) POCT glucose (12/25/2016 2:22 PM CDT) GLUCOSE POC 143(H) 70 - 109 12/25/2016 4:08 PM CDT [facility] ORDERS INTERFACE WHOLE BLOOD SPECIMEN / Unknown 12/25/2016 2:22 PM CDT 12/25/2016 4:08 PM CDT us Generic Conversion Md PASTRANA POCT ORDERABLES - DEVIC E Final Result [facility] ORDERS INTERFACE US documented in this encounter Visit Diagnoses Not on filedocumented in this encounter
--- OUTSIDE RECORDS SUMMARY | 2024-05-10 18:09 | XMS_ITS | Encounter Summary ---
Author Organization [facility] - [facility] Address [address] [place] [address]. [place] [address] [place] [address] Care Team Providers Care In Process Inspector Name Role Phone Unavailable Primary Care Provider Unavailabl e Encounter Details Date Type Department Care Team (Late st Contact Info) Description 12/24/2016 Orders Only ANY CONVERSION ONE [place], [place] [id number] , Generic Conversion, Social History Tobacco Use [...] GLUCOSE - MCCORMICK DOCKED DEVICE Routine 12/24/2016 1:30 PM CDT documented in this encounter Results * POCT glucose (12/24/2016 1:30 PM CDT) GLUCOSE POC 107 70 - 109 12/24/2016 4:50 PM CDT [facility] ORDERS INTERFACE WHOLE BLOOD SPECIMEN / Unknown 12/24/2016 1:30 PM CDT 12/24/2016 4:50 PM CDT us Generic Conversion Md PASTRANA POCT ORDERABLES - DEVIC E Final Result [facility] LAB ORDERS INTERFACE US documented in this encounter Visit Diagnoses Not on filedocumented in this encounter
--- OUTSIDE RECORDS SUMMARY | 2024-05-10 18:09 | XMS_ITS | Encounter Summary ---
Author Organization [facility] - [facility] Address [address] [place] [address]. [place] [address] [place] [address] Care Team Providers Care Cementer Machine Joiner Name Role Phone Unavailable Primary Care Provider Unavailabl e Encounter Details Date Type Department Care Team (Late st Contact Info) Description 12/25/2016 [place] [address] , Generic Conversion, Social History Tobacco Use [...] GLUCOSE - MCCORMICK DOCKED DEVICE Routine 12/25/2016 1:37 AM CDT documented in this encounter Results * (ABNORMAL) POCT glucose (12/25/2016 1:37 AM CDT) GLUCOSE POC 113(H) 70 - 109 12/25/2016 12:39 AM CDT [facility] LAB ORDERS INTERFACE WHOLE BLOOD SPECIMEN / Unknown 12/25/2016 1:37 AM CDT 12/25/2016 12:39 AM CDT us Generic Conversion Md PASTRANA POCT ORDERABLES - DEVIC E Final Result [facility] LAB ORDERS INTERFACE US documented in this encounter Visit Diagnoses Not on filedocumented in this encounter
--- OUTSIDE RECORDS SUMMARY | 2024-05-10 18:09 | XMS_ITS | Encounter Summary ---
Author Organization [facility] Address [address] [place] [address]. [place] [address] [place] [address] Care Team Providers Care Log Chain Feeder Name Role Phone Unavailable Primary Care Provider Unavailabl e Encounter Details Date Type Department Care Team (Late st Contact Info) Description 12/26/2016 Orders [place] [address] , Generic Conversion, Social History [...] Date/Time Associated Diagnosis Comments BASIC METABOLIC PANEL Routine 12/26/2016 6:18 AM CDT documented in this encounter Results * (ABNORMAL) BASIC METABOLIC PANEL (12/26/2016 6:18 AM CDT) SODIUM S/P/B 136 135 - 147 MMOL/L 12/26/2016 5:53 AM CDT [facility] POTASSIUM S/P/B 4.1 3.5 - 5.0 MMOL/L 12/26/2016 5:53 AM CDT [facility] CHLORIDE S/P/B 102 98 - 107 MMOL/L 12/26/2016 5:53 AM CDT [facility] CO2 23.1 22 - 29 MMOL/L 12/26/2016 5:53 AM CDT [facility] GLUCOSE 201(H) 70 - 109 MG/DL 12/26/2016 5:53 AM CDT [facility] BUN 2(L) 7 - 19 MG/DL 12/26/2016 5:53 AM CDT [facility] CREATININE S/P/B 0.58(L) 0.60 - 1.10 MG/DL 12/26/2016 5:53 AM CDT [facility] CALCIUM S/P/B 9.1 8.4 - 10.2 MG/DL 12/26/2016 5:53 AM CDT [facility] EGFR NON-AFR. AMER. 133 >60 ML/MIN/1.7 3 M2 12/26/2016 5:53 AM CDT [facility] EGFR AFR. AMER. 161 >60 ML/MIN/1.7 3 M2 12/26/2016 5:53 AM CDT [facility] ANION GAP 10.9 MMOL/L 12/26/2016 5:53 AM CDT [facility] OSMOLALITY (CALC) 274 MOSM/KG 12/26/2016 5:53 AM T [facility] PLASMA SPECIMEN / Unknown 12/26/2016 6:18 AM CDT 12/26/2016 5:21 AM CDT us Generic Conversion Md [facility] Final R esult [facility] [address] [place] [address], [id number] documented in this encounter Visit Diagnoses Not on filedocumented in this encounter
--- OUTSIDE RECORDS SUMMARY | 2024-05-10 18:09 | XMS_ITS | Encounter Summary ---
Author Organization [facility] Address [address] [place] [address]. [place] [address] [place] [address] Care Team Providers Care Substation Designer Name Role Phone Unavailable Primary Care Provider Unavailabl e Encounter Details Date Type Department Care Team (Latest Contact Info) Description 12/24/2016 Abstract [facility] , Veena Sepulveda MD Social History Tobacco Use Types Packs/Day [...] Procedure Name Priority Date/Time Associated Diagnosis Comments CT CHEST+ABD+PEL WO CON Routine 12/24/2016 12:18 PM CDT documented in this encounter Results * CT CHEST+ABD+PEL WO CON (12/24/2016 12:18 PM CDT) Anatomical Region Laterality Modality Chest, Abdomen, Pelvis Computed Tomography 12/24/2016 12:1 8 PM CDT 12/24/2016 12:18 PM CDT Narrative 12/24/2016 12:29 PM CDT [facility] ?? [place], [place] ?? Department of Radiology ? KARY FUCHS Ordering MD: CHARLENE GILLILAND [employer] ?? Acct: [id number] ?? : 1995 Pt Type: ADM IN ?? Sex: F Ord Site: MAIN ? Study Date Accession # Procedure Code Procedure ?? 12/24/16 [id number] CHWO[address]WO+ CT Chest WO Abd Pel WO+ ? Signed ? Examination: CT Chest WO Abd Pel WO+ ? Exam time: 12/24/2016 9:50 AM ? Clinical history: Diabetic ketoacidosis. Possible infection. ? Comparison: There are no prior identical studies. ? Technique: Examination: A dose lowering technique was used for this procedure, which may ?? include, but is not limited to dose reduction technique, automated exposure control and the ?? use of a iterative reconstruction and ALARA (as low as reasonably achievable)/image gently ?? techniques. The studies are performed without contrast. ? FINDINGS: ? CT CHEST: The heart size is within normal limits. In the mediastinum there are no enlarged ?? lymph nodes. The major vessels as visualized without contrast there are unremarkable. Thoracic ?? esophagus shows no abnormalities. The main airways are patent. ? In the lung parenchyma there are no active infiltrates. There is no effusion or free air. ?? There are no masses or fluid collections. No pneumothorax. ? In the axilla no enlarged lymph nodes. The chest wall structures are unremarkable. ?? Heterogeneously dense breasts. ? MUSCULOSKELETAL: In the rib cage there are no acute abnormalities. The thoracic vertebra ?? demonstrate no acute abnormalities. ? CT abdomen pelvis: ?? Liver: The size of the liver is borderline. There are no focal lesions within the liver. No ?? fluid around the liver. ?? Spleen: No organomegaly. No masses in the spleen. ?? Gallbladder: Gallbladder has normal size. There are no stones. The study is somewhat limited ?? due to position of the upper extremities with artifacts. There is no biliary distention. ? Pancreas: Normal shape and size. No masses or fluid collections. ? Adrenal glands: No masses. ? Kidneys: ?? Right kidney: The right kidney appears mildly prominent. There is mild dilatation of the right ?? renal pelvis with AP dimension of about 1.8 cm of unknown age. There is further mild to ?? moderate dilatation of the right ureter which measures approximately 1.3 cm proximally and at ?? the mid levels. The dilatation of the right ureter is seen down to the right lower quadrant. ?? The distal segments of the right ureter are normal. There is no stone identified. There is no ?? definite mass around the urinary bladder. The etiology and age of these findings is ?? indeterminate. Please also correlate clinically for possibility of underlying urinary tract ?? infection. If further needed CT with IVP protocol can BE considered. ? Left kidney: No hydronephrosis or stones. The left ureter is unremarkable. ? Urinary bladder: The urinary bladder is mildly distended. No abnormal densities in the urinary ?? bladder. ? Pelvis: Small amount of fluid in the cul-de-sac. The uterus is deviated to the left with an ?? IUD in place. No adnexal mass. There is a cyst suggested in the right ovary of 1.5 cm. ? Aorta: Normal size of the abdominal aorta. No retroperitoneal mass or enlarged lymph nodes. In ?? the groin and there is no lymphadenopathy. ? Mesentery: Upper abdominal mesentery shows no free air or free fluid. Peritoneal reflections ?? are smooth. In the root of the mesentery no abnormalities. ? GI tract: The stomach is unremarkable. The small bowel loops are also unremarkable including ?? the appendix. ?? Colon: Redundant colon with zepl-as-uzdhvymc stool. Mild spasm in the distal colon. ? MUSCULOSKELETAL: Involving the lumbar spine there are no acute changes. Mild scoliosis. The ?? bony pelvis demonstrates no acute abnormalities. In the abdominal wall there are no masses or ?? hernia. ? IMPRESSION: ?? 1.CT CHEST: In the lung parenchyma there are no active infiltrates, masses or other acute ?? findings. The central chest is unremarkable. ?? 2. CT abdomen pelvis: There is mild to moderate dilatation of the right upper and mid ureter ?? of unknown age and etiology. No stones can be seen. Mildly prominent size of the right kidney. ?? Please correlate clinically for possibility of underlying infection. If further indicated CT ?? scan of the urinary tract with IVP protocol will be helpful. ?? 3. IUD in the uterus. No pelvic mass. Small amount of free fluid. ?? 4. Nonspecific GI tract. ? Electronically Signed By: CEDRIC MORENO MD 12/24/16 1226 ? Dictated On: 12/24/16 1218 ?? Interpreted By: CEDRIC MORENO MD ?? Transcribed On: 12/24/16 1218 - INFCE ? CC: ? CHARLENE GILLILAND NP Procedure Note Veena Pastrana MD - 02/24/2018 [place], [place] Department of Radiology KARY FUCHS Ordering MD: CHARLENE GILLILAND [employer] Acct: [id number] : 1995 Pt Type: ADM IN Sex: F Ord Site: MAIN Study Date Accession # Procedure Code Procedure 12/24/16 [id number] CHWOABPWO+ CT Chest WO Abd Pel WO+ Signed Examination: CT Chest WO Abd Pel WO+ Exam time: 12/24/2016 9:50 AM Clinical history: Diabetic ketoacidosis. Possible infection. Comparison: There are no prior identical studies. Technique: Examination: A dose lowering technique was used for thisprocedure, which may include, but is not limited to dose reduction technique, automatedexposure control and the use of a iterative reconstruction and ALARA (as low as reasonablyachievable)/image gently techniques. The studies are performed without contrast. FINDINGS: CT CHEST: The heart size is within normal limits. In the mediastinumthere are no enlarged lymph nodes. The major vessels as visualized without contrast there areunremarkable. Thoracic esophagus shows no abnormalities. The main airways are patent. In the lung parenchyma there are no active infiltrates. There is noeffusion or free air. There are no masses or fluid collections. No pneumothorax. In the axilla no enlarged lymph nodes. The chest wall structures areunremarkable. Heterogeneously dense breasts. MUSCULOSKELETAL: In the rib cage there are no acute abnormalities. Thethoracic vertebra demonstrate no acute abnormalities. CT abdomen pelvis: Liver: The size of the liver is borderline. There are no focal lesionswithin the liver. No fluid around the liver. Spleen: No organomegaly. No masses in the spleen. Gallbladder: Gallbladder has normal size. There are no stones. The studyis somewhat limited due to position of the upper extremities with artifacts. There is nobiliary distention. Pancreas: Normal shape and size. No masses or fluid collections. Adrenal glands: No masses. Kidneys: Right kidney: The right kidney appears mildly prominent. There is milddilatation of the right renal pelvis with AP dimension of about 1.8 cm of unknown age. There isfurther mild to moderate dilatation of the right ureter which measures approximately 1.3cm proximally and at the mid levels. The dilatation of the right ureter is seen down to theright lower quadrant. The distal segments of the right ureter are normal. There is no stoneidentified. There is no definite mass around the urinary bladder. The etiology and age of thesefindings is indeterminate. Please also correlate clinically for possibility ofunderlying urinary tract infection. If further needed CT with IVP protocol can BE considered. Left kidney: No hydronephrosis or stones. The left ureter isunremarkable. Urinary bladder: The urinary bladder is mildly distended. No abnormaldensities in the urinary bladder. Pelvis: Small amount of fluid in the cul-de-sac. The uterus is deviatedto the left with an IUD in place. No adnexal mass. There is a cyst suggested in the rightovary of 1.5 cm. Aorta: Normal size of the abdominal aorta. No retroperitoneal mass orenlarged lymph nodes. In the groin and there is no lymphadenopathy. Mesentery: Upper abdominal mesentery shows no free air or free fluid.Peritoneal reflections are smooth. In the root of the mesentery no abnormalities. GI tract: The stomach is unremarkable. The small bowel loops are alsounremarkable including the appendix. Colon: Redundant colon with gjzl-ap-vgqdldcj stool. Mild spasm in thedistal colon. MUSCULOSKELETAL: Involving the lumbar spine there are no acute changes.Mild scoliosis. The bony pelvis demonstrates no acute abnormalities. In the abdominal wallthere are no masses or hernia. IMPRESSION: 1.CT CHEST: In the lung parenchyma there are no active infiltrates,masses or other acute findings. The central chest is unremarkable. 2. CT abdomen pelvis: There is mild to moderate dilatation of the rightupper and mid ureter of unknown age and etiology. No stones can be seen. Mildly prominent sizeof the right kidney. Please correlate clinically for possibility of underlying infection. Iffurther indicated CT scan of the urinary tract with IVP protocol will be helpful. 3. IUD in the uterus. No pelvic mass. Small amount of free fluid. 4. Nonspecific GI tract. Electronically Signed By: CEDRIC MORENO MD 12/24/16 1226 Dictated On: 12/24/16 1218 Interpreted By: CEDRIC MORENO MD Transcribed On: 12/24/16 1218 - INFCE CC: CHARLENE GILLILAND [employer] us Generic Conversion Md PASTRANA CT Final R esult documented in this encounter Visit Diagnoses Not on filedocumented in this encounter
--- OUTSIDE RECORDS SUMMARY | 2024-05-10 18:09 | XMS_ITS | Encounter Summary ---
Author Organization [facility] Address [address] [place] [address]. [place] [address] [place] [address] Care Team Providers Care Can Bander Operator Name Role Phone Unavailable Primary Care Provider Unavailabl e Encounter Details Date Type Department Care Team (Late st Contact Info) Description 12/24/2016 Orders Only ANY CONVERSION ONE [place], [place] [id number] , Generic Conversion, Social History Tobacco Use [...] GLUCOSE - MCCORMICK DOCKED DEVICE Routine 12/24/2016 5:23 PM CDT documented in this encounter Results * (ABNORMAL) POCT glucose (12/24/2016 5:23 PM CDT) GLUCOSE POC 123(H) 70 - 109 12/24/2016 5:45 PM CDT [facility] LAB ORDERS INTERFACE WHOLE BLOOD SPECIMEN / Unknown 12/24/2016 5:23 PM CDT 12/24/2016 5:44 PM CDT us Generic Conversion Md PASTRANA POCT ORDERABLES - DEVIC E Final Result [facility] LAB ORDERS INTERFACE US documented in this encounter Visit Diagnoses Not on filedocumented in this encounter
--- OUTSIDE RECORDS SUMMARY | 2024-05-10 18:09 | XMS_ITS | Encounter Summary ---
Author Organization [facility] - [facility] Address [address] [place] [address]. [place] [address] [place] [address] Care Team Providers Care Stiff Neck Loader Name Role Phone Unavailable Primary Care Provider Unavailabl e Encounter Details Date Type Department Care Team (Late st Contact Info) Description 12/24/2016 Orders Only ANY CONVERSION ONE [place], [place] [id number] , Generic Conversion, Social History Tobacco Use [...] GLUCOSE - MCCORMICK DOCKED DEVICE Routine 12/24/2016 10:26 PM CDT documented in this encounter Results * (ABNORMAL) POCT glucose (12/24/2016 10:26 PM CDT) GLUCOSE POC 135(H) 70 - 109 12/24/2016 9:28 PM CDT [facility] LAB ORDERS INTERFACE WHOLE BLOOD SPECIMEN / Unknown 12/24/2016 10:26 PM CDT 12/24/2016 9:28 PM CDT us Generic Conversion Md PASTRANA POCT ORDERABLES - DEVIC E Final Result [facility] ORDERS INTERFACE US documented in this encounter Visit Diagnoses Not on filedocumented in this encounter
--- OUTSIDE RECORDS SUMMARY | 2024-05-10 18:09 | XMS_ITS | Encounter Summary ---
Author Organization [facility] Address [address] [place] [address]. [place] [address] [place] [address] Care Team Providers Care Semiautomatic Stitcher Operator Name Role Phone Unavailable Primary Care Provider Unavailabl e Encounter Details Date Type Department Care Team (Late st Contact Info) Description 12/25/2016 Orders [place] [address] , Generic Conversion, Social History [...] Diagnosis Comments BASIC METABOLIC PANEL TIMED 12/25/2016 5:15 AM CDT documented in this encounter Results * (ABNORMAL) BASIC METABOLIC PANEL (12/25/2016 5:15 AM CDT) SODIUM S/P/B 133(L) 135 - 147 MMOL/L 12/25/2016 4:46 AM CDT [facility] POTASSIUM S/P/B 3.9 3.5 - 5.0 MMOL/L 12/25/2016 4:46 AM CDT [facility] Comment:SLIGHT HEMOLYSIS, RE SULT MAY BE AFFECTED. CHLORIDE S/P/B 101 98 - 107 MMOL/L 12/25/2016 4:46 AM CDT [facility] CO2 22.6 22 - 29 MMOL/L 12/25/2016 4:46 AM CDT [facility] GLUCOSE 204(H) 70 - 109 MG/DL 12/25/2016 4:46 AM CDT [facility] BUN 2(L) 7 - 19 MG/DL 12/25/2016 4:46 AM CDT [facility] CREATININE S/P/B 0.56(L) 0.60 - 1.10 MG/DL 12/25/2016 4:46 AM CDT [facility] CALCIUM S/P/B 8.9 8.4 - 10.2 MG/DL 12/25/2016 4:46 AM CDT [facility] EGFR NON-AFR. AMER. 138 >60 ML/MIN/1.7 3 M2 12/25/2016 4:46 AM CDT [facility] EGFR AFR. AMER. 167 >60 ML/MIN/1.7 3 M2 12/25/2016 4:46 AM CDT [facility] ANION GAP 9.4 MMOL/L 12/25/2016 4:46 AM CDT [facility] OSMOLALITY (CALC) 268 MOSM/KG 12/25/2016 4:46 AM CDT [facility] PLASMA SPECIMEN / Unknown 12/25/2016 5:15 AM CDT 12/25/2016 4:16 AM CDT us Generic Conversion Md PASTRANA LABORAT[facility] Final R esult [facility] [address] [place] [address], [id number] documented in this encounter Visit Diagnoses Not on filedocumented in this encounter
--- OUTSIDE RECORDS SUMMARY | 2024-05-10 18:09 | XMS_ITS | Encounter Summary ---
Author Organization [facility] Address [address] [place] [address]. [place] [address] [place] [address] Care Team Providers Care Director Inbound Sales Name Role Phone Unavailable Primary Care Provider Unavailabl e Encounter Details Date Type Department Care Team (Late st Contact Info) Description 12/24/2016 Orders Only ANY CONVERSION ONE [place], [place] [id number] , Generic Conversion, Social History Tobacco Use [...] Priority Date/Time Associated Diagnosis Comments MAGNESIUM TIMED 12/24/2016 7:42 PM CDT documented in this encounter Results * MAGNESIUM (12/24/2016 7:42 PM CDT) MAGNESIUM 1.8 1.7 - 2.2 MG/DL 12/24/2016 7:26 PM CDT [facility] SERUM OR PLASMA SPECIMEN / Unknown 12/24/2016 7:42 PM CDT 12/24/2016 6:43 PM CDT us Generic Conversion Md PASTRANA LABORAT[facility] Final R esult [facility] [address] [place] [id number], [id number] documented in this encounter Visit Diagnoses Not on filedocumented in this encounter
--- OUTSIDE RECORDS SUMMARY | 2024-05-10 18:09 | XMS_ITS | Encounter Summary ---
Author Organization [facility] Address [address] [place] [address]. [place] [address] [place] [address] Care Team Providers Care Marshmallow Machine Operator Name Role Phone Unavailable Primary Care Provider Unavailabl e Encounter Details Date Type Department Care Team (Late st Contact Info) Description 12/25/2016 Orders [place] [address] , Generic Conversion, Social History Tobacco Use [...] GLUCOSE - MCCORMICK DOCKED DEVICE Routine 12/25/2016 9:49 AM CDT documented in this encounter Results * (ABNORMAL) POCT glucose (12/25/2016 9:49 AM CDT) GLUCOSE POC 189(H) 70 - 109 12/25/2016 8:51 AM CDT [facility] LAB ORDERS INTERFACE WHOLE BLOOD SPECIMEN / Unknown 12/25/2016 9:49 AM CDT 12/25/2016 8:51 AM CDT us Generic Conversion Md PASTRANA POCT ORDERABLES - DEVIC E Final Result [facility] LAB ORDERS INTERFACE US documented in this encounter Visit Diagnoses Not on filedocumented in this encounter
--- OUTSIDE RECORDS SUMMARY | 2024-05-10 18:09 | XMS_ITS | Encounter Summary ---
Author Organization [facility] Address [address] [place] [address]. [place] [address] [place] [address] Care Team Providers Care Leather Cleaner Name Role Phone Unavailable Primary Care Provider Unavailabl e Encounter Details Date Type Department Care Team (Late st Contact Info) Description 12/25/2016 Orders Only ANY CONVERSION ONE [place], [place] [id number] , Generic Conversion, Social History Tobacco Use [...] Priority Date/Time Associated Diagnosis Comments BETA-HYDROXYBUTYRAT E TIMED 12/25/2016 12:50 AM CDT documented in this encounter Results * BETA-HYDROXYBUTYRATE (12/25/2016 12:50 AM CDT) BETA-HYDROXYBUT YRATE 0.2 0.0 - 0.3 MMOL/L 12/25/2016 12:01 AM CDT [facility] SERUM OR PLASMA SPECIMEN / Unknown 12/25/2016 12:50 AM CDT 12/24/2016 11:51 PM CDT us Generic Conversion Md PASTRANA LABORAT[facility] Final R esult [facility] [address] [place] [address], [id number] documented in this encounter Visit Diagnoses Not on filedocumented in this encounter
--- OUTSIDE RECORDS SUMMARY | 2024-05-10 18:09 | XMS_ITS | Encounter Summary ---
Author Organization [facility] Address [address] [place] [address]. [place] [address] [place] [address] Care Team Providers Care Embroiderer Name Role Phone Unavailable Primary Care Provider Unavailabl e Encounter Details Date Type Department Care Team (Late st Contact Info) Description 12/24/2016 Orders Only ANY CONVERSION ONE [place], [place] [id number] , Generic Conversion, Social History Tobacco Use [...] Date/Time Associated Diagnosis Comments PHOSPHORUS, INORGANIC PHOSPHATE TIMED 12/24/2016 7:42 PM CDT documented in this encounter Results * PHOSPHORUS, INORGANIC PHOSPHATE (12/24/2016 7:42 PM CDT) PHOSPHORUS 2.3 2.2 - 4.5 MG/DL 12/24/2016 7:26 PM CDT [facility] SERUM OR PLASMA SPECIMEN / Unknown 12/24/2016 7:42 PM CDT 12/24/2016 6:43 PM CDT us Generic Conversion Md PASTRANA LABORAT[facility] Final R esult [facility] [address] [place] [address], [id number] documented in this encounter Visit Diagnoses Not on filedocumented in this encounter
--- OUTSIDE RECORDS SUMMARY | 2024-05-10 18:09 | XMS_ITS | Encounter Summary ---
Author Organization [facility] Address [address] [place] [address]. [place] [address] [place] [address] Care Team Providers Care Pattern Maker Name Role Phone Unavailable Primary Care Provider Unavailabl e Encounter Details Date Type Department Care Team (Late st Contact Info) Description 12/25/2016 Orders Only ANY CONVERSION ONE [place], [place] [id number] , Generic Conversion, Social History Tobacco Use [...] Associated Diagnosis Comments BETA-HYDROXYBUTYRAT E TIMED 12/25/2016 5:15 AM CDT documented in this encounter Results * (ABNORMAL) BETA-HYDROXYBUTYRATE (12/25/2016 5:15 AM CDT) BETA-HYDROXYBU TYRATE 1.2(H) 0.0 - 0.3 MMOL/L 12/25/2016 4:21 AM CDT [facility] SERUM OR PLASMA SPECIMEN / Unknown 12/25/2016 5:15 AM CDT 12/25/2016 4:16 AM CDT us Generic Conversion Md PASTRANA LABORAT[facility] Final R esult [facility] [address] [place] [address], [id number] documented in this encounter Visit Diagnoses Not on filedocumented in this encounter
--- OUTSIDE RECORDS SUMMARY | 2024-05-10 18:09 | XMS_ITS | Encounter Summary ---
Author Organization [facility] Address [address] [place] [address]. [place] [address] [place] [address] Care Team Providers Care Hospice Community Liaison Name Role Phone Unavailable Primary Care Provider Unavailabl e Encounter Details Date Type Department Care Team (Late st Contact Info) Description 12/26/2016 Orders Only [place] [address] , Generic Conversion, Social History [...] Date/Time Associated Diagnosis Comments CBC W/DIFF AUTOMATED Routine 12/26/2016 6:18 AM CDT documented in this encounter Results * (ABNORMAL) CBC W/DIFF AUTOMATED (12/26/2016 6:18 AM CDT) WBC 4.7 4.0 - 10.8 x10'3/uL 12/26/2016 5:30 AM CDT [facility] RBC 4.52 4.10 - 5.40 x10'6/uL 12/26/2016 5:30 AM CDT [facility] HGB 13.5 12.0 - 16.0 G/DL 12/26/2016 5:30 AM CDT [facility] HCT 38.1 36.0 - 47.0 % 12/26/2016 5:30 AM CDT [facility] MCV 84.3 78.0 - 100.0 FL 12/26/2016 5:30 AM CDT [facility] MCH 29.9 27.0 - 31.0 PG 12/26/2016 5:30 AM CDT [facility] MCHC 35.4 33.0 - 36.0 G/DL 12/26/2016 5:30 AM CDT [facility] RDW 14.4 11.5 - 14.5 % 12/26/2016 5:30 AM CDT [facility] PLT 314 150 - 350 x10'3/uL 12/26/2016 5:30 AM CDT [facility] MPV 8.7 7.4 - 10.4 FL 12/26/2016 5:30 AM CDT [facility] ABS. NEUTROPHILS TOTAL 1.85 1.60 - 8.30 x10'3/uL 12/26/2016 5:30 AM CDT [facility] ABS. LYMPHOCYTES 2.13 0.80 - 4.70 x10'3/uL 12/26/2016 5:30 AM CDT [facility] ABS. MONOCYTES 0.67 0.00 - 1.50 x10'3/uL 12/26/2016 5:30 AM CDT [facility] ABS. EOSINOPHILS 0.01 0.00 - 0.40 x10'3/uL 12/26/2016 5:30 AM CDT [facility] ABS. BASOPHILS 0.01 0.00 - 0.20 x10'3/uL 12/26/2016 5:30 AM CDT [facility] ABS. IMMATURE GRANULOCYTES 0.04(H) 0.00 - 0.03 x10'3/uL 12/26/2016 5:30 AM CDT [facility] ABS. NUCLEATED RBC'S 0.00 0.0 x10'3/uL 12/26/2016 5:30 AM CDT [facility] PLASMA SPECIMEN / Unknown 12/26/2016 6:18 AM CDT 12/26/2016 5:21 AM CDT us Generic Conversion Md [facility] Final R esult Performing Organization Address City/State/[facility] Co de Phone Number [facility] [address] [place] [address], [id number] documented in this encounter Visit Diagnoses Not on filedocumented in this encounter
--- OUTSIDE RECORDS SUMMARY | 2024-05-10 18:09 | XMS_ITS | Encounter Summary ---
Author Organization [facility] Address [address] [place] [address]. [place] [address] [place] [address] Care Team Providers Care Automobile Tire Builder Name Role Phone Unavailable Primary Care Provider Unavailabl e Encounter Details Date Type Department Care Team (Late st Contact Info) Description 12/24/2016 Orders Only ANY CONVERSION ONE [place], [place] [id number] , Generic Conversion, Social History Tobacco Use [...] GLUCOSE - MCCORMICK DOCKED DEVICE Routine 12/24/2016 5:54 PM CDT documented in this encounter Results * (ABNORMAL) POCT glucose (12/24/2016 5:54 PM CDT) GLUCOSE POC 115(H) 70 - 109 12/24/2016 5:45 PM CDT [facility] ORDERS INTERFACE WHOLE BLOOD SPECIMEN / Unknown 12/24/2016 5:54 PM CDT 12/24/2016 5:45 PM CDT us Generic Conversion Md PA[facility] POCT ORDERABLES - DEVIC E Final Result [facility] ORDERS INTERFACE US documented in this encounter Visit Diagnoses Not on filedocumented in this encounter
--- OUTSIDE RECORDS SUMMARY | 2024-05-10 18:09 | XMS_ITS | Encounter Summary ---
Author Organization [facility] Address [address] [place] [address]. [place] [address] [place] [address] Care Team Providers Care Reinforcing Bar Setter Name Role Phone Unavailable Primary Care Provider Unavailabl e Encounter Details Date Type Department Care Team (Late st Contact Info) Description 12/25/2016 Orders Only ANY CONVERSION ONE [place], [place] [id number] , Generic Conversion, Social History Tobacco Use [...] GLUCOSE - MCCORMICK DOCKED DEVICE Routine 12/25/2016 9:16 PM CDT documented in this encounter Results * POCT glucose (12/25/2016 9:16 PM CDT) GLUCOSE POC 73 70 - 109 12/25/2016 8:21 PM CDT [facility] ORDERS INTERFACE WHOLE BLOOD SPECIMEN / Unknown 12/25/2016 9:16 PM CDT 12/25/2016 8:21 PM CDT us Generic Conversion Md PA[facility] POCT ORDERABLES - DEVIC E Final Result [facility] ORDERS INTERFACE US documented in this encounter Visit Diagnoses Not on filedocumented in this encounter
--- OUTSIDE RECORDS SUMMARY | 2024-05-10 18:09 | XMS_ITS | Encounter Summary ---
Author Organization [facility] Address [address] [place] [address]. [place] [address] [place] [address] Care Team Providers Care Supervisor Fabrication Name Role Phone Unavailable Primary Care Provider Unavailabl e Encounter Details Date Type Department Care Team (Late st Contact Info) Description 12/25/2016 Orders Only ANY CONVERSION ONE [place], [place] [id number] , Generic Conversion, Social History Tobacco Use [...] Date/Time Associated Diagnosis Comments MAGNESIUM TIMED 12/25/2016 12:50 AM CDT documented in this encounter Results * (ABNORMAL) MAGNESIUM (12/25/2016 12:50 AM CDT) MAGNESIUM 1.6(L) 1.7 - 2.2 MG/DL 12/25/2016 12:17 AM CDT [facility] SERUM OR PLASMA SPECIMEN / Unknown 12/25/2016 12:50 AM CDT 12/24/2016 11:51 PM CDT us Generic Conversion Md [facility] Final R esult [facility] [address] [place] [address], [id number] documented in this encounter Visit Diagnoses Not on filedocumented in this encounter
--- OUTSIDE RECORDS SUMMARY | 2024-05-10 18:09 | XMS_ITS | Encounter Summary ---
Author Organization [facility] Address [address] [place] [address]. [place] [address] [place] [address] Care Team Providers Care Machine Setter Sheet Metal Name Role Phone Unavailable Primary Care Provider Unavailabl e Encounter Details Date Type Department Care Team (Late st Contact Info) Description 12/25/2016 Orders [place] [address] , Generic Conversion, Social History Tobacco Use [...] GLUCOSE - MCCORMICK DOCKED DEVICE Routine 12/25/2016 4:17 AM CDT documented in this encounter Results * (ABNORMAL) POCT glucose (12/25/2016 4:17 AM CDT) GLUCOSE POC 150(H) 70 - 109 12/25/2016 3:21 AM CDT [facility] ORDERS INTERFACE WHOLE BLOOD SPECIMEN / Unknown 12/25/2016 4:17 AM CDT 12/25/2016 3:21 AM CDT us Generic Conversion Md PASTRANA POCT ORDERABLES - DEVIC E Final Result [facility] ORDERS INTERFACE US documented in this encounter Visit Diagnoses Not on filedocumented in this encounter
--- OUTSIDE RECORDS SUMMARY | 2024-05-10 18:09 | XMS_ITS | Encounter Summary ---
Author Organization [facility] Address [address] [place] [address]. [place] [address] [place] [address] Care Team Providers Care Excelsior Picker Name Role Phone Unavailable Primary Care Provider Unavailabl e Encounter Details Date Type Department Care Team (Late st Contact Info) Description 12/24/2016 Orders Only ANY CONVERSION ONE [place], [place] [id number] , Generic Conversion, Social History Tobacco Use [...] GLUCOSE - MCCORMICK DOCKED DEVICE Routine 12/24/2016 8:57 PM CDT documented in this encounter Results * (ABNORMAL) POCT glucose (12/24/2016 8:57 PM CDT) GLUCOSE POC 115(H) 70 - 109 12/24/2016 7:58 PM CDT [facility] ORDERS INTERFACE WHOLE BLOOD SPECIMEN / Unknown 12/24/2016 8:57 PM CDT 12/24/2016 7:58 PM CDT us Generic Conversion Md PASTRA[facility] POCT ORDERABLES - DEVIC E Final Result [facility] ORDERS INTERFACE US documented in this encounter Visit Diagnoses Not on filedocumented in this encounter
--- OUTSIDE RECORDS SUMMARY | 2024-05-10 18:09 | XMS_ITS | Encounter Summary ---
Author Organization [facility] Address [address] [place] [address]. [place] [address] [place] [address] Care Team Providers Care Protocol Manager Name Role Phone Unavailable Primary Care Provider Unavailabl e Encounter Details Date Type Department Care Team (Late st Contact Info) Description 12/26/2016 Orders Only ANY CONVERSION ONE [place], [place] [id number] , Generic Conversion, Social History Tobacco Use [...] Date/Time Associated Diagnosis Comments PHOSPHORUS, INORGANIC PHOSPHATE Routine 12/26/2016 6:18 AM CDT documented in this encounter Results * PHOSPHORUS, INORGANIC PHOSPHATE (12/26/2016 6:18 AM CDT) PHOSPHORUS 3.6 2.2 - 4.5 MG/DL 12/26/2016 5:55 AM CDT [facility] SERUM OR PLASMA SPECIMEN / Unknown 12/26/2016 6:18 AM CDT 12/26/2016 5:21 AM CDT us Generic Conversion Md [facility] Final R esult [facility] [address] [place] [address], [id number] documented in this encounter Visit Diagnoses Not on filedocumented in this encounter
--- OUTSIDE RECORDS SUMMARY | 2024-05-10 18:09 | XMS_ITS | Encounter Summary ---
Author Organization [facility] Address [address] [place] [address]. [place] [address] [place] [address] Care Team Providers Care Electrical Worker Name Role Phone Unavailable Primary Care Provider Unavailabl e Encounter Details Date Type Department Care Team (Late st Contact Info) Description 12/26/2016 [place] [address] , Generic Conversion, Social History Tobacco Use [...] GLUCOSE - MCCORMICK DOCKED DEVICE Routine 12/26/2016 3:34 AM CDT documented in this encounter Results * (ABNORMAL) POCT glucose (12/26/2016 3:34 AM CDT) GLUCOSE POC 156(H) 70 - 109 12/26/2016 2:36 AM CDT [facility] ORDERS INTERFACE WHOLE BLOOD SPECIMEN / Unknown 12/26/2016 3:34 AM CDT 12/26/2016 2:36 AM CDT us Generic Conversion Md PASTRA[facility] POCT ORDERABLES - DEVIC E Final Result [facility] ORDERS INTERFACE US documented in this encounter Visit Diagnoses Not on filedocumented in this encounter
--- OUTSIDE RECORDS SUMMARY | 2024-05-10 18:09 | XMS_ITS | Encounter Summary ---
Author Organization [facility] Address [address] [place] [address]. [place] [address] [place] [address] Care Team Providers Care Hauling Contractor Name Role Phone Unavailable Primary Care Provider Unavailabl e Encounter Details Date Type Department Care Team (Late st Contact Info) Description 12/25/2016 Orders Only [place] [address] , Generic Conversion, Social History [...] Diagnosis Comments BASIC METABOLIC PANEL TIMED 12/25/2016 12:50 AM CDT documented in this encounter Results * (ABNORMAL) BASIC METABOLIC PANEL (12/25/2016 12:50 AM CDT) SODIUM S/P/B 135 135 - 147 MMOL/L 12/25/2016 12:17 AM CDT [facility] POTASSIUM S/P/B 3.3(L) 3.5 - 5.0 MMOL/L 12/25/2016 12:17 AM CDT [facility] CHLORIDE S/P/B 104 98 - 107 MMOL/L 12/25/2016 12:17 AM CDT [facility] CO2 20.3(L) 22 - 29 MMOL/L 12/25/2016 12:17 AM CDT [facility] GLUCOSE 100 70 - 109 MG/DL 12/25/2016 12:17 AM CDT [facility] BUN 3(L) 7 - 19 MG/DL 12/25/2016 12:17 AM CDT [facility] CREATININE S/P/B 0.57(L) 0.60 - 1.10 MG/DL 12/25/2016 12:17 AM CDT [facility] CALCIUM S/P/B 8.6 8.4 - 10.2 MG/DL 12/25/2016 12:17 AM CDT [facility] EGFR NON-AFR. AMER. 135 >60 ML/MIN/1.7 3 M2 12/25/2016 12:17 AM CDT [facility] EGFR AFR. AMER. 164 >60 ML/MIN/1.7 3 M2 12/25/2016 12:17 AM CDT [facility] ANION GAP 10.7 MMOL/L 12/25/2016 12:17 AM CDT [facility] OSMOLALITY (CALC) 267 MOSM/KG 12/25/2016 12:17 AM T [facility] PLASMA SPECIMEN / Unknown 12/25/2016 12:50 AM CDT 12/24/2016 11:51 PM CDT us Generic Conversion Md [facility] Final R esult [facility] [address] [place] [address], [id number] documented in this encounter Visit Diagnoses Not on filedocumented in this encounter
--- OUTSIDE RECORDS SUMMARY | 2024-05-10 18:09 | XMS_ITS | Encounter Summary ---
Author Organization [facility] Address [address] [place] [address]. [place] [address] [place] [address] Care Team Providers Care Hr Shared Services Consultant Name Role Phone Unavailable Primary Care Provider Unavailabl e Encounter Details Date Type Department Care Team (Late st Contact Info) Description 12/26/2016 Orders [place] [address] , Generic Conversion, Social History Tobacco Use [...] GLUCOSE - MCCORMICK DOCKED DEVICE Routine 12/26/2016 9:20 AM CDT documented in this encounter Results * (ABNORMAL) POCT glucose (12/26/2016 9:20 AM CDT) GLUCOSE POC 167(H) 70 - 109 12/26/2016 8:21 AM CDT [facility] ORDERS INTERFACE WHOLE BLOOD SPECIMEN / Unknown 12/26/2016 9:20 AM CDT 12/26/2016 8:21 AM CDT us Generic Conversion Md PASTRANA POCT ORDERABLES - DEVIC E Final Result [facility] ORDERS INTERFACE US documented in this encounter Visit Diagnoses Not on filedocumented in this encounter
--- OUTSIDE RECORDS SUMMARY | 2024-05-10 18:09 | XMS_ITS | Encounter Summary ---
Author Organization [facility] Address [address] [place] [address]. [place] [address] [place] [address] Care Team Providers Care Copy Manager Name Role Phone Unavailable Primary Care Provider Unavailabl e Encounter Details Date Type Department Care Team (Late st Contact Info) Description 12/26/2016 Orders [place] [address] , Generic Conversion, Social History Tobacco Use [...] GLUCOSE - MCCORMICK DOCKED DEVICE Routine 12/26/2016 7:16 AM CDT documented in this encounter Results * (ABNORMAL) POCT glucose (12/26/2016 7:16 AM CDT) GLUCOSE POC 205(H) 70 - 109 12/26/2016 6:46 AM CDT [facility] ORDERS INTERFACE WHOLE BLOOD SPECIMEN / Unknown 12/26/2016 7:16 AM CDT 12/26/2016 6:46 AM CDT us Generic Conversion Md [facility] POCT ORDERABLES - DEVIC E Final Result [facility] ORDERS INTERFACE US documented in this encounter Visit Diagnoses Not on filedocumented in this encounter
--- OUTSIDE RECORDS SUMMARY | 2024-05-10 18:09 | XMS_ITS | Encounter Summary ---
Author Organization [facility] Address [address] [place] [address]. [place] [address] [place] [address] Care Team Providers Care Application Packager Name Role Phone Unavailable Primary Care Provider Unavailabl e Encounter Details Date Type Department Care Team (Late st Contact Info) Description 12/24/2016 Orders Only ANY CONVERSION ONE [place], [place] [id number] , Generic Conversion, Social History Tobacco Use [...] GLUCOSE - MCCORMICK DOCKED DEVICE Routine 12/24/2016 4:25 PM CDT documented in this encounter Results * (ABNORMAL) POCT glucose (12/24/2016 4:25 PM CDT) GLUCOSE POC 113(H) 70 - 109 12/24/2016 5:45 PM CDT [facility] ORDERS INTERFACE WHOLE BLOOD SPECIMEN / Unknown 12/24/2016 4:25 PM CDT 12/24/2016 5:44 PM CDT us Generic Conversion Md PASTRA[facility] POCT ORDERABLES - DEVIC E Final Result [facility] ORDERS INTERFACE US documented in this encounter Visit Diagnoses Not on filedocumented in this encounter
--- OUTSIDE RECORDS SUMMARY | 2024-05-10 18:09 | XMS_ITS | Encounter Summary ---
Author Organization [facility] Address [address] [place] [address]. [place] [address] [place] [address] Care Team Providers Care Mechanical Insulator Name Role Phone Unavailable Primary Care Provider Unavailabl e Encounter Details Date Type Department Care Team (Late st Contact Info) Description 12/24/2016 Orders Only ANY CONVERSION ONE [place], [place] [id number] , Generic Conversion, Social History Tobacco Use [...] Date/Time Associated Diagnosis Comments BETA-HYDROXYBUTYRAT E TIMED 12/24/2016 7:42 PM CDT documented in this encounter Results * (ABNORMAL) BETA-HYDROXYBUTYRATE (12/24/2016 7:42 PM CDT) BETA-HYDROXYBU TYRATE 1.8(H) 0.0 - 0.3 MMOL/L 12/24/2016 7:07 PM CDT [facility] SERUM OR PLASMA SPECIMEN / Unknown 12/24/2016 7:42 PM CDT 12/24/2016 6:43 PM CDT us Generic Conversion Md [facility] Final R esult [facility] [address] [place] [address], [id number] documented in this encounter Visit Diagnoses Not on filedocumented in this encounter
--- OUTSIDE RECORDS SUMMARY | 2024-05-10 18:09 | XMS_ITS | Encounter Summary ---
Author Organization [facility] Address [address] [place] [address]. [place] [address] [place] [address] Care Team Providers Care Branch Operations Coordinator Name Role Phone Unavailable Primary Care Provider Unavailabl e Encounter Details Date Type Department Care Team (Late st Contact Info) Description 12/25/2016 Orders Only ANY CONVERSION ONE [place], [place] [id number] , Generic Conversion, Social History Tobacco Use [...] GLUCOSE - MCCORMICK DOCKED DEVICE Routine 12/25/2016 5:37 PM CDT documented in this encounter Results * POCT glucose (12/25/2016 5:37 PM CDT) GLUCOSE POC 82 70 - 109 12/25/2016 5:42 PM CDT [facility] ORDERS INTERFACE WHOLE BLOOD SPECIMEN / Unknown 12/25/2016 5:37 PM CDT 12/25/2016 5:42 PM CDT us Generic Conversion Md PASTRANA POCT ORDERABLES - DEVIC E Final Result [facility] ORDERS INTERFACE US documented in this encounter Visit Diagnoses Not on filedocumented in this encounter
--- OUTSIDE RECORDS SUMMARY | 2024-05-10 18:09 | XMS_ITS | Encounter Summary ---
Author Organization [facility] Address [address] [place] [address]. [place] [address] [place] [address] Care Team Providers Care Press Assistant Name Role Phone Unavailable Primary Care Provider Unavailabl e Encounter Details Date Type Department Care Team (Late st Contact Info) Description 12/25/2016 Orders Only ANY CONVERSION ONE [place], [place] [id number] , Generic Conversion, Social History Tobacco Use [...] Associated Diagnosis Comments PHOSPHORUS, INORGANIC PHOSPHATE TIMED 12/25/2016 12:50 AM CDT documented in this encounter Results * (ABNORMAL) PHOSPHORUS, INORGANIC PHOSPHATE (12/25/2016 12:50 AM CDT) PHOSPHORUS 1.9(L) 2.2 - 4.5 MG/DL 12/25/2016 12:17 AM CDT [facility] SERUM OR PLASMA SPECIMEN / Unknown 12/25/2016 12:50 AM CDT 12/24/2016 11:51 PM CDT us Generic Conversion Md [facility] Final R esult [facility] [address] [place] [address], [id number] documented in this encounter Visit Diagnoses Not on filedocumented in this encounter
--- OUTSIDE RECORDS SUMMARY | 2024-05-10 18:09 | XMS_ITS | Encounter Summary ---
Author Organization [facility] Address [address] [place] [address]. [place] [address] [place] [address] Care Team Providers Care Makeup Editor Name Role Phone Unavailable Primary Care Provider Unavailabl e Encounter Details Date Type Department Care Team (Late st Contact Info) Description 12/25/2016 Orders [place] [address] , Generic Conversion, Social History Tobacco Use [...] GLUCOSE - MCCORMICK DOCKED DEVICE Routine 12/25/2016 7:00 AM CDT documented in this encounter Results * (ABNORMAL) POCT glucose (12/25/2016 7:00 AM CDT) GLUCOSE POC 189(H) 70 - 109 12/25/2016 6:02 AM CDT [facility] ORDERS INTERFACE WHOLE BLOOD SPECIMEN / Unknown 12/25/2016 7:00 AM CDT 12/25/2016 6:02 AM CDT us Generic Conversion Md PASTARNA POCT ORDERABLES - DEVIC E Final Result [facility] ORDERS INTERFACE US documented in this encounter Visit Diagnoses Not on filedocumented in this encounter
--- OUTSIDE RECORDS SUMMARY | 2024-05-10 18:09 | XMS_ITS | Encounter Summary ---
Author Organization [facility] Address [address] [place] [address]. [place] [address] [place] [address] Care Team Providers Care Student Success Counselor Name Role Phone Unavailable Primary Care Provider Unavailabl e Encounter Details Date Type Department Care Team (Late st Contact Info) Description 12/25/2016 Orders Only ANY CONVERSION ONE [place], [place] [id number] , Generic Conversion, Social History Tobacco Use [...] Diagnosis Comments PHOSPHORUS, INORGANIC PHOSPHATE TIMED 12/25/2016 5:15 AM CDT documented in this encounter Results * PHOSPHORUS, INORGANIC PHOSPHATE (12/25/2016 5:15 AM CDT) PHOSPHORUS 2.8 2.2 - 4.5 MG/DL 12/25/2016 4:[address] [facility] SERUM OR PLASMA SPECIMEN / Unknown 12/25/2016 5:15 AM CDT 12/25/2016 4:16 AM CDT us Generic Conversion Md [facility] Final R esult [facility] [address] [place] [address], [id number] documented in this encounter Visit Diagnoses Not on filedocumented in this encounter
--- OUTSIDE RECORDS SUMMARY | 2024-05-10 18:09 | XMS_ITS | Encounter Summary ---
Author Organization [facility] Address [address] [place] [address]. [place] [address] [place] [address] Care Team Providers Care Union Carpenter Name Role Phone Unavailable Primary Care Provider Unavailabl e Encounter Details Date Type Department Care Team (Late st Contact Info) Description 12/25/2016 Orders Only ANY CONVERSION ONE [place], [place] [id number] , Generic Conversion, Social History Tobacco Use [...] GLUCOSE - MCCORMICK DOCKED DEVICE Routine 12/25/2016 10:22 PM CDT documented in this encounter Results * POCT glucose (12/25/2016 10:22 PM CDT) GLUCOSE POC 86 70 - 109 12/25/2016 9:25 PM CDT [facility] ORDERS INTERFACE WHOLE BLOOD SPECIMEN / Unknown 12/25/2016 10:22 PM CDT 12/25/2016 9:25 PM CDT us Generic Conversion Md PASTRANA POCT ORDERABLES - DEVIC E Final Result [facility] ORDERS INTERFACE US documented in this encounter Visit Diagnoses Not on filedocumented in this encounter
--- OUTSIDE RECORDS SUMMARY | 2024-05-10 18:09 | XMS_ITS | Encounter Summary ---
Author Organization [facility] Address [address] [place] [address]. [place] [address] [place] [address] Care Team Providers Care Fleet Technician Name Role Phone Unavailable Primary Care Provider Unavailabl e Encounter Details Date Type Department Care Team (Latest Contact Info) Description 12/24/2016 Abstract [facility] Social History Tobacco Use [...]
--- OUTSIDE RECORDS SUMMARY | 2024-05-10 18:09 | XMS_ITS | Encounter Summary ---
Author Organization [facility] - [facility] Address [address] [place] [address]. [place] [address] [place] [address] Care Team Providers Care Pattern Chain Builder Name Role Phone Unavailable Primary Care Provider Unavailabl e Encounter Details Date Type Department Care Team (Late st Contact Info) Description 12/26/2016 Orders Only [place] [address] , Generic Conversion, Social History Tobacco Use [...] GLUCOSE - MCCORMICK DOCKED DEVICE Routine 12/26/2016 11:47 AM CDT documented in this encounter Results * (ABNORMAL) POCT glucose (12/26/2016 11:47 AM CDT) GLUCOSE POC 159(H) 70 - 109 12/26/2016 10:53 AM CDT [facility] ORDERS INTERFACE WHOLE BLOOD SPECIMEN / Unknown 12/26/2016 11:47 AM CDT 12/26/2016 10:53 AM CDT us Generic Conversion Md PASTRANA POCT ORDERABLES - DEVIC E Final Result [facility] ORDERS INTERFACE US documented in this encounter Visit Diagnoses Not on filedocumented in this encounter
--- OUTSIDE RECORDS SUMMARY | 2024-05-10 18:09 | XMS_ITS | Encounter Summary ---
Author Organization [facility] Address [address] [place] [address]. [place] [address] [place] [address] Care Team Providers Care Hatchery Laborer Name Role Phone Unavailable Primary Care Provider Unavailabl e Encounter Details Date Type Department Care Team (Late st Contact Info) Description 12/25/2016 [place] [address] , Generic Conversion, Social History [...] Associated Diagnosis Comments CBC W/DIFF AUTOMATED Routine 12/25/2016 12:50 AM CDT documented in this encounter Results * (ABNORMAL) CBC W/DIFF AUTOMATED (12/25/2016 12:50 AM CDT) WBC 5.8 4.0 - 10.8 x10'3/uL 12/24/2016 11:59 PM CDT [facility] RBC 4.41 4.10 - 5.40 x10'6/uL 12/24/2016 11:59 PM CDT [facility] HGB 13.3 12.0 - 16.0 G/DL 12/24/2016 11:59 PM CDT [facility] HCT 36.9 36.0 - 47.0 % 12/24/2016 11:59 PM CDT [facility] MCV 83.7 78.0 - 100.0 FL 12/24/2016 11:59 PM CDT [facility] MCH 30.2 27.0 - 31.0 PG 12/24/2016 11:59 PM CDT [facility] MCHC 36.0 33.0 - 36.0 G/DL 12/24/2016 11:59 PM CDT [facility] RDW 14.6(H) 11.5 - 14.5 % 12/24/2016 11:59 PM CDT [facility] PLT 295 150 - 350 x10'3/uL 12/24/2016 11:59 PM CDT [facility] MPV 8.8 7.4 - 10.4 FL 12/24/2016 11:59 PM CDT [facility] ABS. NEUTROPHILS TOTAL 2.86 1.60 - 8.30 x10'3/uL 12/24/2016 11:59 PM CDT [facility] ABS. LYMPHOCYTES 2.13 0.80 - 4.70 x10'3/uL 12/24/2016 11:59 PM CDT [facility] ABS. MONOCYTES 0.74 0.00 - 1.50 x10'3/uL 12/24/2016 11:59 PM CDT [facility] ABS. EOSINOPHILS 0.00 0.00 - 0.40 x10'3/uL 12/24/2016 11:59 PM CDT [facility] ABS. BASOPHILS 0.01 0.00 - 0.20 x10'3/uL 12/24/2016 11:59 PM CDT [facility] ABS. IMMATURE GRANULOCYTES 0.01 0.00 - 0.03 x10'3/uL 12/24/2016 11:59 PM CDT [facility] ABS. NUCLEATED RBC'S 0.00 0.0 x10'3/uL 12/24/2016 11:59 PM CDT [facility] PLASMA SPECIMEN / Unknown 12/25/2016 12:50 AM CDT 12/24/2016 11:51 PM CDT us Generic Conversion Md [facility] Final R esult Performing Organization Address City/State/[facility] Co de Phone Number [facility] [address] [place] [address], [id number] documented in this encounter Visit Diagnoses Not on filedocumented in this encounter
--- OUTSIDE RECORDS SUMMARY | 2024-05-10 18:09 | XMS_ITS | Encounter Summary ---
Author Organization [facility] Address [address] [place] [address]. [place] [address] [place] [address] Care Team Providers Care Distribution Estimator Name Role Phone Unavailable Primary Care Provider Unavailabl e Encounter Details Date Type Department Care Team (Latest Contact Info) Description 12/25/2016 Abstract [facility] Social History Tobacco Use Types [...]
--- OUTSIDE RECORDS SUMMARY | 2024-05-10 18:09 | XMS_ITS | Encounter Summary ---
Author Organization [facility] Address [address] [place] [address]. [place] [address] [place] [address] Care Team Providers Care Customer Pricing Manager Name Role Phone Unavailable Primary Care Provider Unavailabl e Encounter Details Date Type Department Care Team (Late st Contact Info) Description 12/26/2016 Orders [place] [address] , Generic Conversion, Social History Tobacco Use [...] GLUCOSE - MCCORMICK DOCKED DEVICE Routine 12/26/2016 12:27 AM CDT documented in this encounter Results * (ABNORMAL) POCT glucose (12/26/2016 12:27 AM CDT) GLUCOSE POC 126(H) 70 - 109 12/25/2016 11:31 PM CDT [facility] ORDERS INTERFACE WHOLE BLOOD SPECIMEN / Unknown 12/26/2016 12:27 AM CDT 12/25/2016 11:31 PM CDT us Generic Conversion Md [facility] POCT ORDERABLES - DEVIC E Final Result [facility] ORDERS INTERFACE US documented in this encounter Visit Diagnoses Not on filedocumented in this encounter
--- OUTSIDE RECORDS SUMMARY | 2024-05-10 18:09 | XMS_ITS | Encounter Summary ---
Author Organization [facility] Address [address] [place] [address]. [place] [address] [place] [address] Care Team Providers Care Wind Turbine Erector Name Role Phone Unavailable Primary Care Provider Unavailabl e Encounter Details Date Type Department Care Team (Late st Contact Info) Description 12/24/2016 Orders [place] [address] , Generic Conversion, Social History [...] Associated Diagnosis Comments BASIC METABOLIC PANEL TIMED 12/24/2016 7:42 PM CDT documented in this encounter Results * (ABNORMAL) BASIC METABOLIC PANEL (12/24/2016 7:42 PM CDT) SODIUM S/P/B 136 135 - 147 MMOL/L 12/24/2016 7:26 PM CDT [facility] POTASSIUM S/P/B 3.7 3.5 - 5.0 MMOL/L 12/24/2016 7:26 PM CDT [facility] CHLORIDE S/P/B 107 98 - 107 MMOL/L 12/24/2016 7:26 PM CDT [facility] CO2 18.6(L) 22 - 29 MMOL/L 12/24/2016 7:26 PM CDT [facility] GLUCOSE 132(H) 70 - 109 MG/DL 12/24/2016 7:26 PM CDT [facility] BUN 3(L) 7 - 19 MG/DL 12/24/2016 7:26 PM CDT [facility] CREATININE S/P/B 0.52(L) 0.60 - 1.10 MG/DL 12/24/2016 7:26 PM CDT [facility] CALCIUM S/P/B 8.1(L) 8.4 - 10.2 MG/DL 12/24/2016 7:26 PM CDT [facility] EGFR NON-AFR. AMER. 150 >60 ML/MIN/1.7 3 M2 12/24/2016 7:26 PM CDT [facility] EGFR AFR. AMER. 182 >60 ML/MIN/1.7 3 M2 12/24/2016 7:26 PM CDT [facility] ANION GAP 10.4 MMOL/L 12/24/2016 7:26 PM CDT [facility] OSMOLALITY (CALC) 270 MOSM/KG 12/24/2016 7:26 PM T [facility] PLASMA SPECIMEN / Unknown 12/24/2016 7:42 PM CDT 12/24/2016 6:43 PM CDT us Generic Conversion Md [facility] Final R esult [facility] [address] [place] [address], [id number] documented in this encounter Visit Diagnoses Not on filedocumented in this encounter
--- OUTSIDE RECORDS SUMMARY | 2024-05-10 18:10 | XMS_ITS | Encounter Summary ---
Author Organization [facility] Address [address] [place] [address]. [place] [address] [place] [address] Care Team Providers Care Scaler Name Role Phone Unavailable Primary Care Provider Unavailabl e Encounter Details Date Type Department Care Team (Late st Contact Info) Description 12/23/2016 Orders Only ANY CONVERSION ONE [place], [place] [id number] , Generic Conversion, Social History Tobacco Use [...] POCT GLUCOSE - MCCORMICK DOCKED DEVICE Routine 12/23/2016 5:13 PM CDT documented in this encounter Results * (ABNORMAL) POCT glucose (12/23/2016 5:13 PM CDT) GLUCOSE POC 315(H) 70 - 109 12/23/2016 4:22 PM CDT [facility] ORDERS INTERFACE WHOLE BLOOD SPECIMEN / Unknown 12/23/2016 5:13 PM CDT 12/23/2016 4:22 PM CDT us Generic Conversion Md [facility] POCT ORDERABLES - DEVIC E Final Result [facility] ORDERS INTERFACE US documented in this encounter Visit Diagnoses Not on filedocumented in this encounter
--- OUTSIDE RECORDS SUMMARY | 2024-05-10 18:10 | XMS_ITS | Encounter Summary ---
Author Organization [facility] Address [address] [place] [address]. [place] [address] [place] [address] Care Team Providers Care Cmo Name Role Phone Unavailable Primary Care Provider Unavailabl e Encounter Details Date Type Department Care Team (Late st Contact Info) Description 12/22/2016 Orders [place] [address] , Generic Conversion, Social History [...] Associated Diagnosis Comments BLOOD GAS, VENOUS STAT 12/22/2016 5:2 7 AM CDT documented in this encounter Results * (ABNORMAL) Blood gas, venous (12/22/2016 5:27 AM CDT) PH VENOUS 7.20(L) 7.32 - 7.42 12/22/2016 4:35 AM CDT [facility] PCO2 26.0(L) 41 - 51 MMHG 12/22/2016 4:35 AM CDT [facility] PO2 VENOUS 47.2(H) 25 - 40 MM HG 12/22/2016 4:35 AM CDT [facility] BICARB VENOUS 9.8(L) 24 - 28 MMOL/L 12/22/2016 4:35 AM CDT [facility] TCO2 10.6(L) 25 - 40 MMOL/L 12/22/2016 4:35 AM CDT [facility] BASE DEFICIT VENOUS 17.1(H) 0 - 2 MMOL/L 12/22/2016 4:35 AM CDT [facility] CARBONIC ACID VENOUS 0.8 MMOL/L 12/22/2016 4:35 AM CDT [facility] LITER FLOW ROOM AIR L/M 12/22/2016 4:35 AM CDT [facility] 12/22/2016 5:27 AM CDT 12/22/2016 4:28 AM CDT us Generic Conversion Md [facility] Final R esult [facility] [address] [place] [address], [id number] documented in this encounter Visit Diagnoses Not on filedocumented in this encounter
--- OUTSIDE RECORDS SUMMARY | 2024-05-10 18:10 | XMS_ITS | Encounter Summary ---
Author Organization [facility] Address [address] [place] [address]. [place] [address] [place] [address] Care Team Providers Care Export Coordinator Name Role Phone Unavailable Primary Care Provider Unavailabl e Encounter Details Date Type Department Care Team (Late st Contact Info) Description 12/23/2016 Orders [place] [address] , Generic Conversion, Social History [...] Associated Diagnosis Comments BASIC METABOLIC PANEL TIMED 12/23/2016 8:40 PM CDT documented in this encounter Results * (ABNORMAL) BASIC METABOLIC PANEL (12/23/2016 8:40 PM CDT) SODIUM S/P/B 135 135 - 147 MMOL/L 12/23/2016 8:21 PM CDT [facility] POTASSIUM S/P/B 3.9 3.5 - 5.0 MMOL/L 12/23/2016 8:21 PM CDT [facility] Comment:SLIGHT HEMOLYSIS, RE SULT MAY BE AFFECTED. CHLORIDE S/P/B 104 98 - 107 MMOL/L 12/23/2016 8:21 PM CDT [facility] CO2 19.8(L) 22 - 29 MMOL/L 12/23/2016 8:21 PM CDT [facility] GLUCOSE 196(H) 70 - 109 MG/DL 12/23/2016 8:21 PM CDT [facility] BUN 3(L) 7 - 19 MG/DL 12/23/2016 8:21 PM CDT [facility] CREATININE S/P/B 0.58(L) 0.60 - 1.10 MG/DL 12/23/2016 8:21 PM CDT [facility] CALCIUM S/P/B 8.9 8.4 - 10.2 MG/DL 12/23/2016 8:21 PM CDT [facility] EGFR NON-AFR. AMER. 133 >60 ML/MIN/1.7 3 M2 12/23/2016 8:21 PM CDT [facility] EGFR AFR. AMER. 161 >60 ML/MIN/1.7 3 M2 12/23/2016 8:21 PM CDT [facility] ANION GAP 11.2 MMOL/L 12/23/2016 8:21 PM CDT [facility] OSMOLALITY (CALC) 272 MOSM/KG 12/23/2016 8:21 PM CDT [facility] PLASMA SPECIMEN / Unknown 12/23/2016 8:40 PM CDT 12/23/2016 7:49 PM CDT us Generic Conversion Md [facility] Final R esult [facility] [address] [place] [address], [id number] documented in this encounter Visit Diagnoses Not on filedocumented in this encounter
--- OUTSIDE RECORDS SUMMARY | 2024-05-10 18:10 | XMS_ITS | Encounter Summary ---
Author Organization [facility] Address [address] [place] [address]. [place] [address] [place] [address] Care Team Providers Care Manager Retail Name Role Phone Unavailable Primary Care Provider Unavailabl e Encounter Details Date Type Department Care Team (Late st Contact Info) Description 12/22/2016 Orders Only [place] [address] , Generic Conversion, Social History [...] Date/Time Associated Diagnosis Comments CBC W/DIFF AUTOMATED Nurse Collected Priority 12/22/2016 4:19 AM CDT documented in this encounter Results * (ABNORMAL) CBC W/DIFF AUTOMATED (12/22/2016 4:19 AM CDT) WBC 11.4(H) 4.0 - 10.8 x10'3/uL 12/22/2016 3:34 AM CDT [facility] RBC 5.18 4.10 - 5.40 x10'6/uL 12/22/2016 3:34 AM CDT [facility] HGB 15.3 12.0 - 16.0 G/DL 12/22/2016 3:34 AM CDT [facility] HCT 45.7 36.0 - 47.0 % 12/22/2016 3:34 AM CDT [facility] MCV 88.2 78.0 - 100.0 FL 12/22/2016 3:34 AM CDT [facility] MCH 29.5 27.0 - 31.0 PG 12/22/2016 3:34 AM CDT [facility] MCHC 33.5 33.0 - 36.0 G/DL 12/22/2016 3:34 AM CDT [facility] RDW 15.2(H) 11.5 - 14.5 % 12/22/2016 3:34 AM CDT [facility] PLT 396(H) 150 - 350 x10'3/uL 12/22/2016 3:34 AM CDT [facility] MPV 9.0 7.4 - 10.4 FL 12/22/2016 3:34 AM CDT [facility] ABS. NEUTROPHILS TOTAL 10.04(H) 1.60 - 8.30 x10'3/uL 12/22/2016 3:34 AM CDT [facility] ABS. LYMPHOCYTES 0.86 0.80 - 4.70 x10'3/uL 12/22/2016 3:34 AM CDT [facility] ABS. MONOCYTES 0.26 0.00 - 1.50 x10'3/uL 12/22/2016 3:34 AM CDT [facility] ABS. EOSINOPHILS 0.00 0.00 - 0.40 x10'3/uL 12/22/2016 3:34 AM CDT [facility] ABS. BASOPHILS 0.04 0.00 - 0.20 x10'3/uL 12/22/2016 3:34 AM CDT [facility] ABS. IMMATURE GRANULOCYTES 0.16(H) 0.00 - 0.03 x10'3/uL 12/22/2016 3:34 AM CDT [facility] ABS. NUCLEATED RBC'S 0.00 0.0 x10'3/uL 12/22/2016 3:34 AM CDT [facility] PLASMA SPECIMEN / Unknown 12/22/2016 4:19 AM CDT 12/22/2016 3:22 AM CDT us Generic Conversion Md [facility] Final R esult Performing Organization Address City/State/[facility] Co de Phone Number [facility] [address] [place] [address], [id number] documented in this encounter Visit Diagnoses Not on filedocumented in this encounter
--- OUTSIDE RECORDS SUMMARY | 2024-05-10 18:10 | XMS_ITS | Encounter Summary ---
Author Organization [facility] Address [address] [place] [address]. [place] [address] [place] [address] Care Team Providers Care Software Maintenance Engineer Name Role Phone Unavailable Primary Care Provider Unavailabl e Encounter Details Date Type Department Care Team (Late st Contact Info) Description 12/23/2016 Orders Only ANY CONVERSION ONE [place], [place] [id number] , Generic Conversion, Social History Tobacco Use [...] GLUCOSE - MCCORMICK DOCKED DEVICE Routine 12/23/2016 7:06 PM CDT documented in this encounter Results * (ABNORMAL) POCT glucose (12/23/2016 7:06 PM CDT) GLUCOSE POC 191(H) 70 - 109 12/23/2016 6:08 PM CDT [facility] ORDERS INTERFACE WHOLE BLOOD SPECIMEN / Unknown 12/23/2016 7:06 PM CDT 12/23/2016 6:08 PM CDT us Generic Conversion Md [facility] POCT ORDERABLES - DEVIC E Final Result [facility] ORDERS INTERFACE US documented in this encounter Visit Diagnoses Not on filedocumented in this encounter
--- OUTSIDE RECORDS SUMMARY | 2024-05-10 18:10 | XMS_ITS | Encounter Summary ---
Author Organization [facility] Address [address] [place] [address]. [place] [address] [place] [address] Care Team Providers Care Clothing Room Supervisor Name Role Phone Unavailable Primary Care Provider Unavailabl e Encounter Details Date Type Department Care Team (Late st Contact Info) Description 12/22/2016 Orders [place] [address] , Generic Conversion, Social History [...] Associated Diagnosis Comments BASIC METABOLIC PANEL Routine 12/22/2016 8:01 AM CDT documented in this encounter Results * (ABNORMAL) BASIC METABOLIC PANEL (12/22/2016 8:01 AM CDT) SODIUM S/P/B 140 135 - 147 MMOL/L 12/22/2016 2:24 PM CDT [facility] POTASSIUM S/P/B 3.1(L) 3.5 - 5.0 MMOL/L 12/22/2016 2:24 PM CDT [facility] CHLORIDE S/P/B 122(H) 98 - 107 MMOL/L 12/22/2016 2:24 PM CDT [facility] CO2 7.5(LL) 22 - 29 MMOL/L 12/22/2016 2:24 PM CDT [facility] Comment:Critical results bety led to and read back by VAMSHI RN AT 0955. DC GLUCOSE 112(H) 70 - 109 MG/DL 12/22/2016 2:24 PM CDT [facility] BUN 9 7 - 19 MG/DL 12/22/2016 2:24 PM CDT [facility] CREATININE S/P/B 0.52(L) 0.60 - 1.10 MG/DL 12/22/2016 2:24 PM CDT [facility] CALCIUM S/P/B 6.2(LL) 8.4 - 10.2 MG/DL 12/22/2016 2:24 PM CDT [facility] Comment:Critical results bety led to and read back by VAMSHI HERNANDEZ AT 0955. DC EGFR NON-AFR. AMER. 150 >60 ML/MIN/1.7 3 M2 12/22/2016 2:24 PM CDT [facility] EGFR AFR. AMER. 182 >60 ML/MIN/1.7 3 M2 12/22/2016 2:24 PM CDT [facility] ANION GAP 10.5 MMOL/L 12/22/2016 2:24 PM CDT [facility] OSMOLALITY (CALC) 279 MOSM/KG 12/22/2016 2:24 PM CDT [facility] PLASMA SPECIMEN / Unknown 12/22/2016 8:01 AM CDT 12/22/2016 7:52 AM CDT us Generic Conversion Md [facility] Final R esult [facility] [address] [place] [address], [id number] documented in this encounter Visit Diagnoses Not on filedocumented in this encounter
--- OUTSIDE RECORDS SUMMARY | 2024-05-10 18:10 | XMS_ITS | Encounter Summary ---
Author Organization [facility] Address [address] [place] [address]. [place] [address] [place] [address] Care Team Providers Care Cod Clerk Name Role Phone Unavailable Primary Care Provider Unavailabl e Encounter Details Date Type Department Care Team (Late st Contact Info) Description 12/24/2016 Orders [place] [address] , Generic Conversion, Social History Tobacco Use [...] GLUCOSE - MCCORMICK DOCKED DEVICE Routine 12/24/2016 1:19 AM CDT documented in this encounter Results * (ABNORMAL) POCT glucose (12/24/2016 1:19 AM CDT) GLUCOSE POC 169(H) 70 - 109 12/24/2016 12:21 AM CDT [facility] ORDERS INTERFACE WHOLE BLOOD SPECIMEN / Unknown 12/24/2016 1:19 AM CDT 12/24/2016 12:21 AM CDT us Generic Conversion Md [facility] POCT ORDERABLES - DEVIC E Final Result [facility] ORDERS INTERFACE US documented in this encounter Visit Diagnoses Not on filedocumented in this encounter
--- OUTSIDE RECORDS SUMMARY | 2024-05-10 18:10 | XMS_ITS | Encounter Summary ---
Author Organization [facility] Address [address] [place] [address]. [place] [address] [place] [address] Care Team Providers Care Enamel Drier Name Role Phone Unavailable Primary Care Provider Unavailabl e Encounter Details Date Type Department Care Team (Late st Contact Info) Description 12/24/2016 Orders Only ANY CONVERSION ONE [place], [place] [id number] , Generic Conversion, Social History Tobacco Use [...] Date/Time Associated Diagnosis Comments MAGNESIUM TIMED 12/24/2016 1:29 PM CDT documented in this encounter Results * (ABNORMAL) MAGNESIUM (12/24/2016 1:29 PM CDT) MAGNESIUM 2.3(H) 1.7 - 2.2 MG/DL 12/24/2016 1:28 PM CDT [facility] Comment:RESULT QUESTIONABLE DUE TO HEMOLYSIS, CONSIDER RECOLLECTION. SERUM OR PLASMA SPECIMEN / Unknown 12/24/2016 1:29 PM CDT 12/24/2016 12:30 PM CDT us Generic Conversion Md [facility] Final R esult [facility] [address] [place] [address], [id number] documented in this encounter Visit Diagnoses Not on filedocumented in this encounter
--- OUTSIDE RECORDS SUMMARY | 2024-05-10 18:10 | XMS_ITS | Encounter Summary ---
Author Organization [facility] Address [address] [place] [address]. [place] [address] [place] [address] Care Team Providers Care Machinist Mate Name Role Phone Unavailable Primary Care Provider Unavailabl e Encounter Details Date Type Department Care Team (Late st Contact Info) Description 12/22/2016 Orders Only ANY CONVERSION ONE [place], [place] [id number] , Generic Conversion, Social History Tobacco Use [...] POCT GLUCOSE - MCCORMICK DOCKED DEVICE Routine 12/22/2016 8:25 AM CDT documented in this encounter Results * (ABNORMAL) POCT glucose (12/22/2016 8:25 AM CDT) GLUCOSE POC 135(H) 70 - 109 12/22/2016 7:42 AM CDT [facility] ORDERS INTERFACE WHOLE BLOOD SPECIMEN / Unknown 12/22/2016 8:25 AM CDT 12/22/2016 7:42 AM CDT us Generic Conversion Md [facility] POCT ORDERABLES - DEVIC E Final Result [facility] ORDERS INTERFACE US documented in this encounter Visit Diagnoses Not on filedocumented in this encounter
--- OUTSIDE RECORDS SUMMARY | 2024-05-10 18:10 | XMS_ITS | Encounter Summary ---
Author Organization [facility] Address [address] [place] [address]. [place] [address] [place] [address] Care Team Providers Care Production Team Advisor Name Role Phone Unavailable Primary Care Provider Unavailabl e Encounter Details Date Type Department Care Team (Late st Contact Info) Description 12/24/2016 Orders [place] [address] , Generic Conversion, Social History Tobacco Use [...] GLUCOSE - MCCORMICK DOCKED DEVICE Routine 12/24/2016 10:59 AM CDT documented in this encounter Results * (ABNORMAL) POCT glucose (12/24/2016 10:59 AM CDT) GLUCOSE POC 212(H) 70 - 109 12/24/2016 12:28 PM CDT [facility] ORDERS INTERFACE WHOLE BLOOD SPECIMEN / Unknown 12/24/2016 10:59 AM CDT 12/24/2016 12:27 PM CDT us Generic Conversion Md [facility] POCT ORDERABLES - DEVIC E Final Result [facility] ORDERS INTERFACE US documented in this encounter Visit Diagnoses Not on filedocumented in this encounter
--- OUTSIDE RECORDS SUMMARY | 2024-05-10 18:10 | XMS_ITS | Encounter Summary ---
Author Organization [facility] Address [address] [place] [address]. [place] [address] [place] [address] Care Team Providers Care Local Delivery Driver Name Role Phone Unavailable Primary Care Provider Unavailabl e Encounter Details Date Type Department Care Team (Late st Contact Info) Description 12/23/2016 Orders Only ANY CONVERSION ONE [place], [place] [id number] , Generic Conversion, Social History Tobacco Use [...] GLUCOSE - MCCORMICK DOCKED DEVICE Routine 12/23/2016 2:45 AM CDT documented in this encounter Results * POCT glucose (12/23/2016 2:45 AM CDT) GLUCOSE POC 78 70 - 109 12/23/2016 1:53 AM CDT [facility] ORDERS INTERFACE WHOLE BLOOD SPECIMEN / Unknown 12/23/2016 2:45 AM CDT 12/23/2016 1:53 AM CDT us Generic Conversion Md PASTRA[facility] POCT ORDERABLES - DEVIC E Final Result [facility] ORDERS INTERFACE US documented in this encounter Visit Diagnoses Not on filedocumented in this encounter
--- OUTSIDE RECORDS SUMMARY | 2024-05-10 18:10 | XMS_ITS | Encounter Summary ---
Author Organization [facility] Address [address] [place] [address]. [place] [address] [place] [address] Care Team Providers Care Eyedotter Name Role Phone Unavailable Primary Care Provider Unavailabl e Encounter Details Date Type Department Care Team (Late st Contact Info) Description 12/22/2016 Orders [place] [address] , Generic Conversion, Social History Tobacco Use [...] GLUCOSE - MCCORMICK DOCKED DEVICE Routine 12/22/2016 8:59 AM CDT documented in this encounter Results * (ABNORMAL) POCT glucose (12/22/2016 8:59 AM CDT) GLUCOSE POC 134(H) 70 - 109 12/22/2016 8:01 AM CDT [facility] ORDERS INTERFACE WHOLE BLOOD SPECIMEN / Unknown 12/22/2016 8:59 AM CDT 12/22/2016 8:01 AM CDT us Generic Conversion Md PA[facility] POCT ORDERABLES - DEVIC E Final Result [facility] ORDERS INTERFACE US documented in this encounter Visit Diagnoses Not on filedocumented in this encounter
--- OUTSIDE RECORDS SUMMARY | 2024-05-10 18:10 | XMS_ITS | Encounter Summary ---
Author Organization [facility] Address [address] [place] [address]. [place] [address] [place] [address] Care Team Providers Care Machine Operator Slitter Technician Name Role Phone Unavailable Primary Care Provider Unavailabl e Encounter Details Date Type Department Care Team (Late st Contact Info) Description 12/22/2016 Orders Only ANY CONVERSION ONE [place], [place] [id number] , Generic Conversion, Social History Tobacco Use [...] GLUCOSE - MCCORMICK DOCKED DEVICE Routine 12/22/2016 9:52 PM CDT documented in this encounter Results * (ABNORMAL) POCT glucose (12/22/2016 9:52 PM CDT) GLUCOSE POC 141(H) 70 - 109 12/23/2016 1:52 AM CDT [facility] ORDERS INTERFACE WHOLE BLOOD SPECIMEN / Unknown 12/22/2016 9:52 PM CDT 12/23/2016 1:52 AM CDT us Generic Conversion Md PASTRANA POCT ORDERABLES - DEVIC E Final Result [facility] ORDERS INTERFACE US documented in this encounter Visit Diagnoses Not on filedocumented in this encounter
--- OUTSIDE RECORDS SUMMARY | 2024-05-10 18:10 | XMS_ITS | Encounter Summary ---
Author Organization [facility] Address [address] [place] [address]. [place] [address] [place] [address] Care Team Providers Care Data Integration Architect Name Role Phone Unavailable Primary Care Provider Unavailabl e Encounter Details Date Type Department Care Team (Late st Contact Info) Description 12/22/2016 Orders Only ANY CONVERSION ONE [place], [place] [id number] , Generic Conversion, Social History Tobacco Use [...] Name Priority Date/Time Associated Diagnosis Comments MAGNESIUM Nurse Collected Priority 12/22/2016 4:19 AM CDT documented in this encounter Results * MAGNESIUM (12/22/2016 4:19 AM CDT) MAGNESIUM 1.7 1.7 - 2.2 MG/DL 12/22/2016 3:50 AM CDT [facility] SERUM OR PLASMA SPECIMEN / Unknown 12/22/2016 4:19 AM CDT 12/22/2016 3:22 AM CDT us Generic Conversion Md [facility] Final R esult [facility] [address] [place] [address], [id number] documented in this encounter Visit Diagnoses Not on filedocumented in this encounter
--- OUTSIDE RECORDS SUMMARY | 2024-05-10 18:10 | XMS_ITS | Encounter Summary ---
Author Organization [facility] Address [address] [place] [address]. [place] [address] [place] [address] Care Team Providers Care Video Recorder Mechanic Name Role Phone Unavailable Primary Care Provider Unavailabl e Encounter Details Date Type Department Care Team (Late st Contact Info) Description 12/22/2016 [place] [address] , Generic Conversion, Social History [...] Associated Diagnosis Comments BASIC METABOLIC PANEL TIMED 12/22/2016 4:19 AM CDT documented in this encounter Results * (ABNORMAL) BASIC METABOLIC PANEL (12/22/2016 4:19 AM CDT) SODIUM S/P/B 133(L) 135 - 147 MMOL/L 12/22/2016 3:50 AM CDT [facility] POTASSIUM S/P/B 5.6(H) 3.5 - 5.0 MMOL/L 12/22/2016 3:50 AM CDT [facility] CHLORIDE S/P/B 105 98 - 107 MMOL/L 12/22/2016 3:50 AM CDT [facility] CO2 5.3(LL) 22 - 29 MMOL/L 12/22/2016 3:56 AM CDT [facility] Comment:Critical results bety led to and read back by [email or web address] GLUCOSE 417(H) 70 - 109 MG/DL 12/22/2016 3:50 AM CDT [facility] BUN 13 7 - 19 MG/DL 12/22/2016 3:50 AM CDT [facility] CREATININE S/P/B 1.09 0.60 - 1.10 MG/DL 12/22/2016 3:50 AM CDT [facility] CALCIUM S/P/B 9.3 8.4 - 10.2 MG/DL 12/22/2016 3:50 AM CDT [facility] EGFR NON-AFR. AMER. 64 >60 ML/MIN/1.7 3 M2 12/22/2016 3:50 AM CDT [facility] EGFR AFR. AMER. 78 >60 ML/MIN/1.7 3 M2 12/22/2016 3:50 AM CDT [facility] ANION GAP 22.7 MMOL/L 12/22/2016 3:56 AM CDT [facility] OSMOLALITY (CALC) 284 MOSM/KG 12/22/2016 3:50 AM CDT [facility] PLASMA SPECIMEN / Unknown 12/22/2016 4:19 AM CDT 12/22/2016 3:22 AM CDT us Generic Conversion Md [facility] Final R esult [facility] [address] [place] [address], [id number] documented in this encounter Visit Diagnoses Not on filedocumented in this encounter
--- OUTSIDE RECORDS SUMMARY | 2024-05-10 18:10 | XMS_ITS | Encounter Summary ---
Author Organization [facility] Address [address] [place] [address]. [place] [address] [place] [address] Care Team Providers Care Nurse Ldr Name Role Phone Unavailable Primary Care Provider Unavailabl e Encounter Details Date Type Department Care Team (Late st Contact Info) Description 12/24/2016 Orders [place] [address] , Generic Conversion, Social History [...] Diagnosis Comments BASIC METABOLIC PANEL TIMED 12/24/2016 8:43 AM CDT documented in this encounter Results * (ABNORMAL) BASIC METABOLIC PANEL (12/24/2016 8:43 AM CDT) SODIUM S/P/B 130(L) 135 - 147 MMOL/L 12/24/2016 8:09 AM CDT [facility] POTASSIUM S/P/B 4.2 3.5 - 5.0 MMOL/L 12/24/2016 8:09 AM CDT [facility] Comment:SLIGHT HEMOLYSIS, RE SULT MAY BE AFFECTED. CHLORIDE S/P/B 96(L) 98 - 107 MMOL/L 12/24/2016 8:09 AM CDT [facility] CO2 11.7(L) 22 - 29 MMOL/L 12/24/2016 8:09 AM CDT [facility] GLUCOSE 405(H) 70 - 109 MG/DL 12/24/2016 8:09 AM T [facility] BUN 6(L) 7 - 19 MG/DL 12/24/2016 8:10 AM CDT [facility] CREATININE S/P/B 0.75 0.60 - 1.10 MG/DL 12/24/2016 8:09 AM T [facility] CALCIUM S/P/B 9.5 8.4 - 10.2 MG/DL 12/24/2016 8:09 AM T [facility] EGFR NON-AFR. AMER. 99 >60 ML/MIN/1.7 3 M2 12/24/2016 8:09 AM CDT [facility] EGFR AFR. AMER. 119 >60 ML/MIN/1.7 3 M2 12/24/2016 8:09 AM CDT [facility] ANION GAP 22.3 MMOL/L 12/24/2016 8:09 AM CDT [facility] OSMOLALITY (CALC) 275 MOSM/KG 12/24/2016 8:10 AM T [facility] PLASMA SPECIMEN / Unknown 12/24/2016 8:43 AM CDT 12/24/2016 7:46 AM CDT us Generic Conversion Md [facility] Final R esult [facility] [address] [place] [address], [id number] documented in this encounter Visit Diagnoses Not on filedocumented in this encounter
--- OUTSIDE RECORDS SUMMARY | 2024-05-10 18:10 | XMS_ITS | Encounter Summary ---
Author Organization [facility] Address [address] [place] [address]. [place] [address] [place] [address] Care Team Providers Care Seismic Interpreter Name Role Phone Unavailable Primary Care Provider Unavailabl e Encounter Details Date Type Department Care Team (Late st Contact Info) Description 12/22/2016 Orders Only ANY CONVERSION ONE [place], [place] [id number] , Generic Conversion, Social History Tobacco Use [...] Priority Date/Time Associated Diagnosis Comments MAGNESIUM TIMED 12/22/2016 5:00 PM CDT documented in this encounter Results * MAGNESIUM (12/22/2016 5:00 PM CDT) MAGNESIUM 1.8 1.7 - 2.2 MG/DL 12/22/2016 4:[address] [facility] SERUM OR PLASMA SPECIMEN / Unknown 12/22/2016 5:00 PM CDT 12/22/2016 4:13 PM CDT us Generic Conversion Md [facility] Final R esult [facility] [address] [place] [id number], [id number] documented in this encounter Visit Diagnoses Not on filedocumented in this encounter
--- OUTSIDE RECORDS SUMMARY | 2024-05-10 18:10 | XMS_ITS | Encounter Summary ---
Author Organization [facility] Address [address] [place] [address]. [place] [address] [place] [address] Care Team Providers Care Packing Floor Worker Name Role Phone Unavailable Primary Care Provider Unavailabl e Encounter Details Date Type Department Care Team (Late st Contact Info) Description 12/22/2016 Orders Only ANY CONVERSION ONE [place], [place] [id number] , Generic Conversion, Social History Tobacco Use [...] Associated Diagnosis Comments PHOSPHORUS, INORGANIC PHOSPHATE TIMED 12/22/2016 8:00 AM CDT documented in this encounter Results * (ABNORMAL) PHOSPHORUS, INORGANIC PHOSPHATE (12/22/2016 8:00 AM CDT) PHOSPHORUS 1.5(L) 2.2 - 4.5 MG/DL 12/22/2016 8:56 AM CDT [facility] SERUM OR PLASMA SPECIMEN / Unknown 12/22/2016 8:00 AM CDT 12/22/2016 7:52 AM CDT us Generic Conversion Md [facility] Final R esult [facility] [address] [place] [address], [phone] documented in this encounter Visit Diagnoses Not on filedocumented in this encounter
--- OUTSIDE RECORDS SUMMARY | 2024-05-10 18:10 | XMS_ITS | Encounter Summary ---
Author Organization [facility] Address [address] [place] [address]. [place] [address] [place] [address] Care Team Providers Care Building Estimator Name Role Phone Unavailable Primary Care Provider Unavailabl e Encounter Details Date Type Department Care Team (Late st Contact Info) Description 12/24/2016 Orders Only ANY CONVERSION ONE [place], [place] [id number] , Generic Conversion, Social History Tobacco Use [...] GLUCOSE - MCCORMICK DOCKED DEVICE Routine 12/24/2016 7:49 AM CDT documented in this encounter Results * (ABNORMAL) POCT glucose (12/24/2016 7:49 AM CDT) GLUCOSE POC 321(H) 70 - 109 12/24/2016 6:51 AM CDT [facility] ORDERS INTERFACE WHOLE BLOOD SPECIMEN / Unknown 12/24/2016 7:49 AM CDT 12/24/2016 6:51 AM CDT us Generic Conversion Md PASTRANA POCT ORDERABLES - DEVIC E Final Result [facility] ORDERS INTERFACE US documented in this encounter Visit Diagnoses Not on filedocumented in this encounter
--- OUTSIDE RECORDS SUMMARY | 2024-05-10 18:10 | XMS_ITS | Encounter Summary ---
Author Organization [facility] Address [address] [place] [address]. [place] [address] [place] [address] Care Team Providers Care Emulsion Operator Name Role Phone Unavailable Primary Care Provider Unavailabl e Encounter Details Date Type Department Care Team (Late st Contact Info) Description 12/22/2016 Orders Only [place] [address] , Generic Conversion, Social History [...] Diagnosis Comments BASIC METABOLIC PANEL TIMED 12/22/2016 8:00 AM CDT documented in this encounter Results * (ABNORMAL) BASIC METABOLIC PANEL (12/22/2016 8:00 AM CDT) SODIUM S/P/B 140 135 - 147 MMOL/L 12/22/2016 8:56 AM CDT [facility] POTASSIUM S/P/B 3.1(L) 3.5 - 5.0 MMOL/L 12/22/2016 8:56 AM CDT [facility] CHLORIDE S/P/B 122(H) 98 - 107 MMOL/L 12/22/2016 8:56 AM CDT [facility] CO2 7.5(LL) 22 - 29 MMOL/L 12/22/2016 8:56 AM CDT [facility] Comment:Critical results bety led to and read back by VAMSHI RN AT 0955. DC GLUCOSE 112(H) 70 - 109 MG/DL 12/22/2016 8:56 AM CDT [facility] BUN 9 7 - 19 MG/DL 12/22/2016 8:56 AM CDT [facility] CREATININE S/P/B 0.52(L) 0.60 - 1.10 MG/DL 12/22/2016 8:56 AM CDT [facility] CALCIUM S/P/B 6.2(LL) 8.4 - 10.2 MG/DL 12/22/2016 8:56 AM CDT [facility] Comment:Critical results bety led to and read back by VAMSHI HERNANDEZ AT 0955. DC EGFR NON-AFR. AMER. 150 >60 ML/MIN/1.7 3 M2 12/22/2016 8:56 AM CDT [facility] EGFR AFR. AMER. 182 >60 ML/MIN/1.7 3 M2 12/22/2016 8:56 AM CDT [facility] ANION GAP 10.5 MMOL/L 12/22/2016 8:56 AM CDT [facility] OSMOLALITY (CALC) 279 MOSM/KG 12/22/2016 8:56 AM CDT [facility] PLASMA SPECIMEN / Unknown 12/22/2016 8:00 AM CDT 12/22/2016 7:52 AM CDT us Generic Conversion Md [facility] Final R esult [facility] [address] [place] [address], [id number] documented in this encounter Visit Diagnoses Not on filedocumented in this encounter
--- OUTSIDE RECORDS SUMMARY | 2024-05-10 18:10 | XMS_ITS | Encounter Summary ---
Author Organization [facility] Address [address] [place] [address]. [place] [address] [place] [address] Care Team Providers Care Formula Weigher Name Role Phone Unavailable Primary Care Provider Unavailabl e Encounter Details Date Type Department Care Team (Late st Contact Info) Description 12/23/2016 Orders Only ANY CONVERSION ONE [place], [place] [id number] , Generic Conversion, Social History Tobacco Use [...] GLUCOSE - MCCORMICK DOCKED DEVICE Routine 12/23/2016 10:35 AM CDT documented in this encounter Results * POCT glucose (12/23/2016 10:35 AM CDT) GLUCOSE POC 104 70 - 109 12/23/2016 9:38 AM CDT [facility] ORDERS INTERFACE WHOLE BLOOD SPECIMEN / Unknown 12/23/2016 10:35 AM CDT 12/23/2016 9:38 AM CDT us Generic Conversion Md PASTRANA POCT ORDERABLES - DEVIC E Final Result [facility] ORDERS INTERFACE US documented in this encounter Visit Diagnoses Not on filedocumented in this encounter
--- OUTSIDE RECORDS SUMMARY | 2024-05-10 18:10 | XMS_ITS | Encounter Summary ---
Author Organization [facility] Address [address] [place] [address]. [place] [address] [place] [address] Care Team Providers Care Roll Plugger Name Role Phone Unavailable Primary Care Provider Unavailabl e Encounter Details Date Type Department Care Team (Late st Contact Info) Description 12/22/2016 Orders [place] [address] , Generic Conversion, Social History [...] Priority Date/Time Associated Diagnosis Comments LACTIC ACID Routine 12/22/2016 4:19 AM CDT documented in this encounter Results * (ABNORMAL) LACTIC ACID (12/22/2016 4:19 AM CDT) LACTIC ACID VENOUS 2.4(H) 0.5 - 2.0 MMOL/L 12/22/2016 3:50 AM CDT [facility] Comment: AN ORDER FOR A REPEAT LACTIC ACID TEST IS REQUIRED WITHIN 6 HOURS OF DIAGNOSIS ON A PATIENT WITH SEVERE SEPSIS. IN A PATIENT WITHOUT SEPSIS, A LACTIC ACID VALUE UP TO 2.2 MMOL/L MAY BE NORMAL. PLASMA SPECIMEN / Unknown 12/22/2016 4:19 AM CDT 12/22/2016 3:22 AM CDT us Generic Conversion Md [facility] Final R esult Performing Organization Address City/State/[facility] Co de Phone Number [facility] [address] [place] [address], [id number] documented in this encounter Visit Diagnoses Not on filedocumented in this encounter
--- OUTSIDE RECORDS SUMMARY | 2024-05-10 18:10 | XMS_ITS | Encounter Summary ---
Author Organization [facility] Address [address] [place] [address]. [place] [address] [place] [address] Care Team Providers Care Caseworker Protective Services Name Role Phone Unavailable Primary Care Provider Unavailabl e Encounter Details Date Type Department Care Team (Late st Contact Info) Description 12/24/2016 Orders Only [place] [address] , Generic Conversion, Social History [...] Diagnosis Comments BASIC METABOLIC PANEL TIMED 12/24/2016 1:20 AM CDT documented in this encounter Results * (ABNORMAL) BASIC METABOLIC PANEL (12/24/2016 1:20 AM CDT) SODIUM S/P/B 134(L) 135 - 147 MMOL/L 12/24/2016 1:09 AM CDT [facility] POTASSIUM S/P/B 4.0 3.5 - 5.0 MMOL/L 12/24/2016 1:09 AM CDT [facility] CHLORIDE S/P/B 100 98 - 107 MMOL/L 12/24/2016 1:09 AM CDT [facility] CO2 20.3(L) 22 - 29 MMOL/L 12/24/2016 1:09 AM CDT [facility] GLUCOSE 169(H) 70 - 109 MG/DL 12/24/2016 1:09 AM T [facility] BUN 3(L) 7 - 19 MG/DL 12/24/2016 1:09 AM CDT [facility] CREATININE S/P/B 0.64 0.60 - 1.10 MG/DL 12/24/2016 1:09 AM CDT [facility] CALCIUM S/P/B 9.5 8.4 - 10.2 MG/DL 12/24/2016 1:09 AM CDT [facility] EGFR NON-AFR. AMER. 118 >60 ML/MIN/1.7 3 M2 12/24/2016 1:09 AM CDT [facility] EGFR AFR. AMER. 143 >60 ML/MIN/1.7 3 M2 12/24/2016 1:09 AM CDT [facility] ANION GAP 13.7 MMOL/L 12/24/2016 1:09 AM CDT [facility] OSMOLALITY (CALC) 269 MOSM/KG 12/24/2016 1:09 AM T [facility] PLASMA SPECIMEN / Unknown 12/24/2016 1:20 AM CDT 12/24/2016 12:28 AM CDT us Generic Conversion Md [facility] Final R esult [facility] [address] [place] [address], [id number] documented in this encounter Visit Diagnoses Not on filedocumented in this encounter
--- OUTSIDE RECORDS SUMMARY | 2024-05-10 18:10 | XMS_ITS | Encounter Summary ---
Author Organization [facility] Address [address] [place] [address]. [place] [address] [place] [address] Care Team Providers Care Junior Administrative Assistant Name Role Phone Unavailable Primary Care Provider Unavailabl e Encounter Details Date Type Department Care Team (Late st Contact Info) Description 12/22/2016 Orders Only ANY CONVERSION ONE [place], [place] [id number] , Generic Conversion, Social History Tobacco Use [...] Diagnosis Comments PHOSPHORUS, INORGANIC PHOSPHATE TIMED 12/22/2016 12:00 PM CDT documented in this encounter Results * (ABNORMAL) PHOSPHORUS, INORGANIC PHOSPHATE (12/22/2016 12:00 PM CDT) PHOSPHORUS 1.7(L) 2.2 - 4.5 MG/DL 12/22/2016 12:41 PM CDT [facility] SERUM OR PLASMA SPECIMEN / Unknown 12/22/2016 12:00 PM CDT 12/22/2016 12:29 PM CDT us Generic Conversion Md [facility] Final R esult [facility] [address] [place] [address], [id number] documented in this encounter Visit Diagnoses Not on filedocumented in this encounter
--- OUTSIDE RECORDS SUMMARY | 2024-05-10 18:10 | XMS_ITS | Encounter Summary ---
Author Organization [facility] Address [address] [place] [address]. [place] [address] [place] [address] Care Team Providers Care Linux Security Administrator Name Role Phone Unavailable Primary Care Provider Unavailabl e Encounter Details Date Type Department Care Team (Late st Contact Info) Description 12/22/2016 Orders Only [place] [address] , Generic Conversion, Social History [...] Diagnosis Comments BASIC METABOLIC PANEL TIMED 12/22/2016 3:00 PM CDT documented in this encounter Results * (ABNORMAL) BASIC METABOLIC PANEL (12/22/2016 3:00 PM CDT) SODIUM S/P/B 136 135 - 147 MMOL/L 12/22/2016 2:[address] [facility] POTASSIUM S/P/B 3.2(L) 3.5 - 5.0 MMOL/L 12/22/2016 2:[address] [facility] CHLORIDE S/P/B 111(H) 98 - 107 MMOL/L 12/22/2016 2:[address] [facility] CO2 14.7(L) 22 - 29 MMOL/L 12/22/2016 2:[address] [facility] GLUCOSE 136(H) 70 - 109 MG/DL 12/22/2016 2:[address] [facility] BUN 5(L) 7 - 19 MG/DL 12/22/2016 2:[address] [facility] CREATININE S/P/B 0.68 0.60 - 1.10 MG/DL 12/22/2016 2:[address] [facility] CALCIUM S/P/B 8.3(L) 8.4 - 10.2 MG/DL 12/22/2016 2:[address] [facility] EGFR NON-AFR. AMER. 110 >60 ML/MIN/1.7 3 M2 12/22/2016 2:[address] [facility] EGFR AFR. AMER. 134 >60 ML/MIN/1.7 3 M2 12/22/2016 2:[address] [facility] ANION GAP 10.3 MMOL/L 12/22/2016 2:[address] [facility] OSMOLALITY (CALC) 271 MOSM/KG 12/22/2016 2:[address] [facility] PLASMA SPECIMEN / Unknown 12/22/2016 3:00 PM CDT 12/22/2016 2:24 PM CDT us Generic Conversion Md [facility] Final R esult [facility] [address] [place] [address], [phone] documented in this encounter Visit Diagnoses Not on filedocumented in this encounter
--- OUTSIDE RECORDS SUMMARY | 2024-05-10 18:10 | XMS_ITS | Encounter Summary ---
Author Organization [facility] Address [address] [place] [address]. [place] [address] [place] [address] Care Team Providers Care Club Lounge Attendant Name Role Phone Unavailable Primary Care Provider Unavailabl e Encounter Details Date Type Department Care Team (Late st Contact Info) Description 12/23/2016 Orders [place] [address] , Generic Conversion, Social History [...] Procedure Name Priority Date/Time Associated Diagnosis Comments COMPREHENSIVE METABOLIC PANEL Routine 12/23/2016 3:02 AM CDT documented in this encounter Results * (ABNORMAL) COMPREHENSIVE METABOLIC PANEL (12/23/2016 3:02 AM CDT) SODIUM S/P/B 139 135 - 147 MMOL/L 12/23/2016 2:54 AM CDT [facility] POTASSIUM S/P/B 3.8 3.5 - 5.0 MMOL/L 12/23/2016 2:54 AM CDT [facility] Comment:SLIGHT HEMOLYSIS, RE SULT MAY BE AFFECTED. CHLORIDE S/P/B 113(H) 98 - 107 MMOL/L 12/23/2016 2:54 AM [facility] CO2 16.0(L) 22 - 29 MMOL/L 12/23/2016 2:54 AM T [facility] GLUCOSE 70 70 - 109 MG/DL 12/23/2016 2:54 AM [facility] BUN 3(L) 7 - 19 MG/DL 12/23/2016 2:54 AM T [facility] CREATININE S/P/B 0.56(L) 0.60 - 1.10 MG/DL 12/23/2016 2:54 AM [facility] CALCIUM S/P/B 8.3(L) 8.4 - 10.2 MG/DL 12/23/2016 2:54 AM [facility] BILIRUBIN TOTAL S/P/B 0.4 0.2 - 1.2 MG/DL 12/23/2016 2:54 AM [facility] ALKALINE PHOSPHATASE S/P/B 61 52 - 144 U/L 12/23/2016 2:54 AM [facility] AST 20 5 - 35 U/L 12/23/2016 2:54 AM [facility] ALT 11 0 - 55 U/L 12/23/2016 2:54 AM [facility] TOTAL PROTEIN S/P/B 5.7(L) 6.0 - 8.3 G/DL 12/23/2016 2:55 AM [facility] ALBUMIN S/P/B 3.1(L) 3.4 - 4.9 G/DL 12/23/2016 2:54 AM [facility] ANION GAP 10.0 MMOL/L 12/23/2016 2:54 AM [facility] OSMOLALITY (CALC) 273 MOSM/KG 12/23/2016 2:54 AM [facility] EGFR NON-AFR. AMER. 138 >60 ML/MIN/1.7 3 M2 12/23/2016 2:54 AM T [facility] EGFR AFR. AMER. 167 >60 ML/MIN/1.7 3 M2 12/23/2016 2:54 AM CDT [facility] PLASMA SPECIMEN / Unknown 12/23/2016 3:02 AM CDT 12/23/2016 2:29 AM CDT us Generic Conversion Md [facility] Final R esult Performing Organization Address City/State/[facility] Co de Phone Number [facility] [address] [place] [address], [phone] documented in this encounter Visit Diagnoses Not on filedocumented in this encounter
--- OUTSIDE RECORDS SUMMARY | 2024-05-10 18:10 | XMS_ITS | Encounter Summary ---
Author Organization [facility] Address [address] [place] [address]. [place] [address] [place] [address] Care Team Providers Care Hydrologic Engineer Name Role Phone Unavailable Primary Care Provider Unavailabl e Encounter Details Date Type Department Care Team (Late st Contact Info) Description 12/22/2016 Orders Only [place] [address] , Generic Conversion, Social History Tobacco Use [...] Procedure Name Priority Date/Time Associated Diagnosis Comments TROPONIN, QUANT NOW 12/22/2016 4:19 AM CDT documented in this encounter Results * TROPONIN, QUANT (12/22/2016 4:19 AM CDT) TROPONIN I 0.002 0.000 - 0.028 ng/mL. 12/22/2016 3:57 AM CDT [facility] SERUM OR PLASMA SPECIMEN / Unknown 12/22/2016 4:19 AM CDT 12/22/2016 3:22 AM CDT us Generic Conversion Md [facility] Final R esult [facility] [address] [place] [address], [id number] documented in this encounter Visit Diagnoses Not on filedocumented in this encounter
--- OUTSIDE RECORDS SUMMARY | 2024-05-10 18:10 | XMS_ITS | Encounter Summary ---
Author Organization [facility] Address [address] [place] [address]. [place] [address] [place] [address] Care Team Providers Care Salad Counter Attendant Name Role Phone Unavailable Primary Care Provider Unavailabl e Encounter Details Date Type Department Care Team (Late st Contact Info) Description 12/23/2016 Orders Only ANY CONVERSION ONE [place], [place] [id number] , Generic Conversion, Social History Tobacco Use [...] GLUCOSE - MCCORMICK DOCKED DEVICE Routine 12/23/2016 8:44 PM CDT documented in this encounter Results * (ABNORMAL) POCT glucose (12/23/2016 8:44 PM CDT) GLUCOSE POC 197(H) 70 - 109 12/23/2016 7:46 PM CDT [facility] ORDERS INTERFACE WHOLE BLOOD SPECIMEN / Unknown 12/23/2016 8:44 PM CDT 12/23/2016 7:45 PM CDT us Generic Conversion Md PASTRANA POCT ORDERABLES - DEVIC E Final Result [facility] ORDERS INTERFACE US documented in this encounter Visit Diagnoses Not on filedocumented in this encounter
--- OUTSIDE RECORDS SUMMARY | 2024-05-10 18:10 | XMS_ITS | Encounter Summary ---
Author Organization [facility] Address [address] [place] [address]. [place] [address] [place] [address] Care Team Providers Care Spouter Name Role Phone Unavailable Primary Care Provider Unavailabl e Encounter Details Date Type Department Care Team (Late st Contact Info) Description 12/22/2016 Orders Only ANY CONVERSION ONE [place], [place] [id number] , Generic Conversion, Social History Tobacco Use [...] GLUCOSE - MCCORMICK DOCKED DEVICE Routine 12/22/2016 4:28 PM CDT documented in this encounter Results * POCT glucose (12/22/2016 4:28 PM CDT) GLUCOSE POC 98 70 - 109 12/22/2016 3:32 PM CDT [facility] ORDERS INTERFACE WHOLE BLOOD SPECIMEN / Unknown 12/22/2016 4:28 PM CDT 12/22/2016 3:32 PM CDT us Generic Conversion Md PASTRANA POCT ORDERABLES - DEVIC E Final Result [facility] ORDERS INTERFACE US documented in this encounter Visit Diagnoses Not on filedocumented in this encounter
--- OUTSIDE RECORDS SUMMARY | 2024-05-10 18:10 | XMS_ITS | Encounter Summary ---
Author Organization [facility] Address [address] [place] [address]. [place] [address] [place] [address] Care Team Providers Care Hand Candle Molder Name Role Phone Unavailable Primary Care Provider Unavailabl e Encounter Details Date Type Department Care Team (Late st Contact Info) Description 12/22/2016 Orders [place] [address] , Generic Conversion, Social History [...] Associated Diagnosis Comments BASIC METABOLIC PANEL STAT 12/22/2016 2:00 AM CDT documented in this encounter Results * (ABNORMAL) BASIC METABOLIC PANEL (12/22/2016 2:00 AM CDT) SODIUM S/P/B 135 135 - 147 MMOL/L 12/22/2016 1:21 AM CDT [facility] POTASSIUM S/P/B 4.6 3.5 - 5.0 MMOL/L 12/22/2016 1:27 AM CDT [facility] Comment:SLIGHT HEMOLYSIS, RE SULT MAY BE AFFECTED. CHLORIDE S/P/B 100 98 - 107 MMOL/L 12/22/2016 1:21 AM CDT [facility] CO2 10.9(L) 22 - 29 MMOL/L 12/22/2016 1:21 AM CDT [facility] GLUCOSE 322(H) 70 - 109 MG/DL 12/22/2016 1:21 AM CDT [facility] BUN 15 7 - 19 MG/DL 12/22/2016 1:21 AM T [facility] CREATININE S/P/B 0.87 0.60 - 1.10 MG/DL 12/22/2016 1:21 AM CDT [facility] CALCIUM S/P/B 9.4 8.4 - 10.2 MG/DL 12/22/2016 1:21 AM CDT [facility] EGFR NON-AFR. AMER. 83 >60 ML/MIN/1.7 3 M2 12/22/2016 1:21 AM T [facility] EGFR AFR. AMER. 101 >60 ML/MIN/1.7 3 M2 12/22/2016 1:21 AM CDT [facility] ANION GAP 24.1 MMOL/L 12/22/2016 1:21 AM T [facility] OSMOLALITY (CALC) 283 MOSM/KG 12/22/2016 1:21 AM T [facility] PLASMA SPECIMEN / Unknown 12/22/2016 2:00 AM CDT 12/22/2016 1:01 AM CDT us Generic Conversion Md [facility] Final R esult [facility] [address] [place] [address], [phone] documented in this encounter Visit Diagnoses Not on filedocumented in this encounter
--- OUTSIDE RECORDS SUMMARY | 2024-05-10 18:10 | XMS_ITS | Encounter Summary ---
Author Organization [facility] Address [address] [place] [address]. [place] [address] [place] [address] Care Team Providers Care Barrel Handler Name Role Phone Unavailable Primary Care Provider Unavailabl e Encounter Details Date Type Department Care Team (Late st Contact Info) Description 12/22/2016 Orders [place] [address] , Generic Conversion, Social History [...] Diagnosis Comments BASIC METABOLIC PANEL TIMED 12/22/2016 7:00 PM CDT documented in this encounter Results * (ABNORMAL) BASIC METABOLIC PANEL (12/22/2016 7:00 PM CDT) SODIUM S/P/B 141 135 - 147 MMOL/L 12/22/2016 6:50 PM CDT [facility] POTASSIUM S/P/B 3.3(L) 3.5 - 5.0 MMOL/L 12/22/2016 6:50 PM CDT [facility] CHLORIDE S/P/B 118(H) 98 - 107 MMOL/L 12/22/2016 6:50 PM CDT [facility] CO2 16.7(L) 22 - 29 MMOL/L 12/22/2016 6:50 PM CDT [facility] GLUCOSE 49(LL) 70 - 109 MG/DL 12/22/2016 7:03 PM CDT [facility] Comment:Critical results bety led to and read back by CINTHIA HERNANDEZ @ 2002. [facility] BUN 4(L) 7 - 19 MG/DL 12/22/2016 6:50 PM CDT [facility] CREATININE S/P/B 0.55(L) 0.60 - 1.10 MG/DL 12/22/2016 6:50 PM CDT [facility] CALCIUM S/P/B 8.3(L) 8.4 - 10.2 MG/DL 12/22/2016 6:50 PM CDT [facility] EGFR NON-AFR. AMER. 141 >60 ML/MIN/1.7 3 M2 12/22/2016 6:50 PM CDT [facility] EGFR AFR. AMER. 171 >60 ML/MIN/1.7 3 M2 12/22/2016 6:50 PM CDT [facility] ANION GAP 6.3 MMOL/L 12/22/2016 6:50 PM CDT [facility] OSMOLALITY (CALC) 275 MOSM/KG 12/22/2016 7:03 PM CDT [facility] PLASMA SPECIMEN / Unknown 12/22/2016 7:00 PM CDT 12/22/2016 6:28 PM CDT us Generic Conversion Md [facility] Final R esult [facility] [address] [place] [address], [place] [phone] documented in this encounter Visit Diagnoses Not on filedocumented in this encounter
--- OUTSIDE RECORDS SUMMARY | 2024-05-10 18:10 | XMS_ITS | Encounter Summary ---
Author Organization [facility] Address [address] [place] [address]. [place] [address] [place] [address] Care Team Providers Care Md Pediatric Allergist Name Role Phone Unavailable Primary Care Provider Unavailabl e Encounter Details Date Type Department Care Team (Late st Contact Info) Description 12/24/2016 Orders Only ANY CONVERSION ONE [place], [place] [id number] , Generic Conversion, Social History Tobacco Use [...] Date/Time Associated Diagnosis Comments MAGNESIUM TIMED 12/24/2016 1:20 AM CDT documented in this encounter Results * MAGNESIUM (12/24/2016 1:20 AM CDT) MAGNESIUM 1.7 1.7 - 2.2 MG/DL 12/24/2016 1:09 AM CDT [facility] SERUM OR PLASMA SPECIMEN / Unknown 12/24/2016 1:20 AM CDT 12/24/2016 12:28 AM CDT us Generic Conversion Md [facility] Final R esult [facility] [address] [place] [id number], [id number] documented in this encounter Visit Diagnoses Not on filedocumented in this encounter
--- OUTSIDE RECORDS SUMMARY | 2024-05-10 18:10 | XMS_ITS | Encounter Summary ---
Author Organization [facility] Address [address] [place] [address]. [place] [address] [place] [address] Care Team Providers Care Supervisor Capacitor Processing Name Role Phone Unavailable Primary Care Provider Unavailabl e Encounter Details Date Type Department Care Team (Late st Contact Info) Description 12/24/2016 Orders Only ANY CONVERSION ONE [place], [place] [id number] , Generic Conversion, Social History Tobacco Use [...] Diagnosis Comments PHOSPHORUS, INORGANIC PHOSPHATE TIMED 12/24/2016 8:43 AM CDT documented in this encounter Results * PHOSPHORUS, INORGANIC PHOSPHATE (12/24/2016 8:43 AM CDT) PHOSPHORUS 2.9 2.2 - 4.5 MG/DL 12/24/2016 8:10 AM CDT [facility] SERUM OR PLASMA SPECIMEN / Unknown 12/24/2016 8:43 AM CDT 12/24/2016 7:46 AM CDT us Generic Conversion Md [facility] Final R esult [facility] [address] [place] [address], [id number] documented in this encounter Visit Diagnoses Not on filedocumented in this encounter
--- OUTSIDE RECORDS SUMMARY | 2024-05-10 18:10 | XMS_ITS | Encounter Summary ---
Author Organization [facility] Address [address] [place] [address]. [place] [address] [place] [address] Care Team Providers Care Sharebroker Name Role Phone Unavailable Primary Care Provider Unavailabl e Encounter Details Date Type Department Care Team (Late st Contact Info) Description 12/23/2016 Orders [place] [address] , Generic Conversion, Social History Tobacco Use [...] GLUCOSE - MCCORMICK DOCKED DEVICE Routine 12/23/2016 5:54 AM CDT documented in this encounter Results * POCT glucose (12/23/2016 5:54 AM CDT) GLUCOSE POC 95 70 - 109 12/23/2016 4:56 AM CDT [facility] ORDERS INTERFACE WHOLE BLOOD SPECIMEN / Unknown 12/23/2016 5:54 AM CDT 12/23/2016 4:56 AM CDT us Generic Conversion Md PASTRANA POCT ORDERABLES - DEVIC E Final Result [facility] ORDERS INTERFACE US documented in this encounter Visit Diagnoses Not on filedocumented in this encounter
--- OUTSIDE RECORDS SUMMARY | 2024-05-10 18:10 | XMS_ITS | Encounter Summary ---
Author Organization [facility] Address [address] [place] [address]. [place] [address] [place] [address] Care Team Providers Care Dairy Associate Name Role Phone Unavailable Primary Care Provider Unavailabl e Encounter Details Date Type Department Care Team (Late st Contact Info) Description 12/24/2016 Orders Only ANY CONVERSION ONE [place], [place] [id number] , Generic Conversion, Social History Tobacco Use [...] GLUCOSE - MCCORMICK DOCKED DEVICE Routine 12/24/2016 6:58 AM CDT documented in this encounter Results * (ABNORMAL) POCT glucose (12/24/2016 6:58 AM CDT) GLUCOSE POC 274(H) 70 - 109 12/24/2016 6:00 AM CDT [facility] ORDERS INTERFACE WHOLE BLOOD SPECIMEN / Unknown 12/24/2016 6:58 AM CDT 12/24/2016 6:00 AM CDT us Generic Conversion Md PASTRANA POCT ORDERABLES - DEVIC E Final Result [facility] ORDERS INTERFACE US documented in this encounter Visit Diagnoses Not on filedocumented in this encounter
--- OUTSIDE RECORDS SUMMARY | 2024-05-10 18:10 | XMS_ITS | Encounter Summary ---
Author Organization [facility] Address [address] [place] [address]. [place] [address] [place] [address] Care Team Providers Care Electrical Unit Rebuilder Name Role Phone Unavailable Primary Care Provider Unavailabl e Encounter Details Date Type Department Care Team (Late st Contact Info) Description 12/23/2016 Orders Only [place] [address] , Generic Conversion, Social History [...] Diagnosis Comments BASIC METABOLIC PANEL TIMED 12/23/2016 8:30 AM CDT documented in this encounter Results * (ABNORMAL) BASIC METABOLIC PANEL (12/23/2016 8:30 AM CDT) SODIUM S/P/B 138 135 - 147 MMOL/L 12/23/2016 8:34 AM CDT [facility] POTASSIUM S/P/B 3.6 3.5 - 5.0 MMOL/L 12/23/2016 8:34 AM CDT [facility] CHLORIDE S/P/B 113(H) 98 - 107 MMOL/L 12/23/2016 8:34 AM CDT [facility] CO2 18.1(L) 22 - 29 MMOL/L 12/23/2016 8:34 AM CDT [facility] GLUCOSE 66(L) 70 - 109 MG/DL 12/23/2016 8:34 AM CDT [facility] BUN 3(L) 7 - 19 MG/DL 12/23/2016 8:34 AM CDT [facility] CREATININE S/P/B 0.46(L) 0.60 - 1.10 MG/DL 12/23/2016 8:34 AM CDT [facility] CALCIUM S/P/B 8.1(L) 8.4 - 10.2 MG/DL 12/23/2016 8:34 AM CDT [facility] EGFR NON-AFR. AMER. 173 >60 ML/MIN/1.7 3 M2 12/23/2016 8:34 AM CDT [facility] EGFR AFR. AMER. 210 >60 ML/MIN/1.7 3 M2 12/23/2016 8:34 AM CDT [facility] ANION GAP 6.9 MMOL/L 12/23/2016 8:34 AM CDT [facility] OSMOLALITY (CALC) 270 MOSM/KG 12/23/2016 8:34 AM T [facility] PLASMA SPECIMEN / Unknown 12/23/2016 8:30 AM CDT 12/23/2016 7:59 AM CDT us Generic Conversion Md [facility] Final R esult [facility] [address] [place] [address], [id number] documented in this encounter Visit Diagnoses Not on filedocumented in this encounter
--- OUTSIDE RECORDS SUMMARY | 2024-05-10 18:10 | XMS_ITS | Encounter Summary ---
Author Organization [facility] Address [address] [place] [address]. [place] [address] [place] [address] Care Team Providers Care Printing Press Machine Operator Name Role Phone Unavailable Primary Care Provider Unavailabl e Encounter Details Date Type Department Care Team (Late st Contact Info) Description 12/24/2016 Orders Only ANY CONVERSION ONE [place], [place] [id number] , Generic Conversion, Social History Tobacco Use [...] Associated Diagnosis Comments BETA-HYDROXYBUTYRAT E TIMED 12/24/2016 1:29 PM CDT documented in this encounter Results * (ABNORMAL) BETA-HYDROXYBUTYRATE (12/24/2016 1:29 PM CDT) BETA-HYDROXYBU TYRATE 0.8(H) 0.0 - 0.3 MMOL/L 12/24/2016 12:59 PM CDT [facility] SERUM OR PLASMA SPECIMEN / Unknown 12/24/2016 1:29 PM CDT 12/24/2016 12:30 PM CDT us Generic Conversion Md [facility] Final R esult [facility] [address] [place] [address], [id number] documented in this encounter Visit Diagnoses Not on filedocumented in this encounter
--- OUTSIDE RECORDS SUMMARY | 2024-05-10 18:10 | XMS_ITS | Encounter Summary ---
Author Organization [facility] Address [address] [place] [address]. [place] [address] [place] [address] Care Team Providers Care Inspection Clerk Name Role Phone Unavailable Primary Care Provider Unavailabl e Encounter Details Date Type Department Care Team (Late st Contact Info) Description 12/22/2016 Orders [place] [address] , Generic Conversion, Social History Tobacco Use [...] GLUCOSE - MCCORMICK DOCKED DEVICE Routine 12/22/2016 10:15 AM CDT documented in this encounter Results * (ABNORMAL) POCT glucose (12/22/2016 10:15 AM CDT) GLUCOSE POC 236(H) 70 - 109 12/22/2016 9:19 AM CDT [facility] ORDERS INTERFACE WHOLE BLOOD SPECIMEN / Unknown 12/22/2016 10:15 AM CDT 12/22/2016 9:18 AM CDT us Generic Conversion Md PASTRANA POCT ORDERABLES - DEVIC E Final Result [facility] ORDERS INTERFACE US documented in this encounter Visit Diagnoses Not on filedocumented in this encounter
--- OUTSIDE RECORDS SUMMARY | 2024-05-10 18:10 | XMS_ITS | Encounter Summary ---
Author Organization [facility] Address [address] [place] [address]. [place] [address] [place] [address] Care Team Providers Care Animal Stunner Name Role Phone Unavailable Primary Care Provider Unavailabl e Encounter Details Date Type Department Care Team (Late st Contact Info) Description 12/22/2016 Orders Only ANY CONVERSION ONE [place], [place] [id number] , Generic Conversion, Social History Tobacco Use [...] GLUCOSE - MCCORMICK DOCKED DEVICE Routine 12/22/2016 9:17 PM CDT documented in this encounter Results * (ABNORMAL) POCT glucose (12/22/2016 9:17 PM CDT) GLUCOSE POC 194(H) 70 - 109 12/23/2016 1:52 AM CDT [facility] ORDERS INTERFACE WHOLE BLOOD SPECIMEN / Unknown 12/22/2016 9:17 PM CDT 12/23/2016 1:52 AM CDT us Generic Conversion Md PASTRANA POCT ORDERABLES - DEVIC E Final Result [facility] ORDERS INTERFACE US documented in this encounter Visit Diagnoses Not on filedocumented in this encounter
--- OUTSIDE RECORDS SUMMARY | 2024-05-10 18:10 | XMS_ITS | Encounter Summary ---
Author Organization [facility] Address [address] [place] [address]. [place] [address] [place] [address] Care Team Providers Care Obstetrics/Gynecology Nurse Name Role Phone Unavailable Primary Care Provider Unavailabl e Encounter Details Date Type Department Care Team (Late st Contact Info) Description 12/24/2016 Orders Only ANY CONVERSION ONE [place], [place] [id number] , Generic Conversion, Social History Tobacco Use [...] Associated Diagnosis Comments BETA-HYDROXYBUTYRAT E TIMED 12/24/2016 1:20 AM CDT documented in this encounter Results * (ABNORMAL) BETA-HYDROXYBUTYRATE (12/24/2016 1:20 AM CDT) BETA-HYDROXYBU TYRATE 3.3(H) 0.0 - 0.3 MMOL/L 12/24/2016 12:39 AM CDT [facility] SERUM OR PLASMA SPECIMEN / Unknown 12/24/2016 1:20 AM CDT 12/24/2016 12:27 AM CDT us Generic Conversion Md [facility] Final R esult [facility] [address] [place] [address], [id number] documented in this encounter Visit Diagnoses Not on filedocumented in this encounter
--- OUTSIDE RECORDS SUMMARY | 2024-05-10 18:10 | XMS_ITS | Encounter Summary ---
Author Organization [facility] Address [address] [place] [address]. [place] [address] [place] [address] Care Team Providers Care Pastry Finisher Name Role Phone Unavailable Primary Care Provider Unavailabl e Encounter Details Date Type Department Care Team (Late st Contact Info) Description 12/23/2016 Orders [place] [address], Generic Conversion, Social History Tobacco Use [...] Procedure Name Priority Date/Time Associated Diagnosis Comments CBC, AUTO, NO DIFF Routine 12/23/2016 3: 05 AM CDT documented in this encounter Results * (ABNORMAL) CBC, AUTO, NO DIFF (12/23/2016 3:05 AM CDT) WBC 10.4 4.0 - 10.8 x10'3/uL 12/23/2016 3:08 AM CDT [facility] RBC 3.65(L) 4.10 - 5.40 x10'6/uL 12/23/2016 3:08 AM CDT [facility] HGB 10.9(L) 12.0 - 16.0 G/DL 12/23/2016 3:08 AM CDT [facility] HCT 31.3(L) 36.0 - 47.0 % 12/23/2016 3:08 AM CDT [facility] MCV 85.8 78.0 - 100.0 FL 12/23/2016 3:08 AM CDT [facility] MCH 29.9 27.0 - 31.0 PG 12/23/2016 3:08 AM CDT [facility] MCHC 34.8 33.0 - 36.0 G/DL 12/23/2016 3:08 AM CDT [facility] RDW 15.2(H) 11.5 - 14.5 % 12/23/2016 3:08 AM CDT [facility] PLT 273 150 - 350 x10'3/uL 12/23/2016 3:08 AM CDT [facility] MPV 8.8 7.4 - 10.4 FL 12/23/2016 3:08 AM CDT [facility] PLASMA SPECIMEN / Unknown 12/23/2016 3:05 AM CDT 12/23/2016 2:09 AM CDT us Generic Conversion Md [facility] Final R esult [facility] [address] [place] [address], [id number] documented in this encounter Visit Diagnoses Not on filedocumented in this encounter
--- OUTSIDE RECORDS SUMMARY | 2024-05-10 18:10 | XMS_ITS | Encounter Summary ---
Author Organization [facility] Address [address] [place] [address]. [place] [address] [place] [address] Care Team Providers Care Bus Matron Name Role Phone Unavailable Primary Care Provider Unavailabl e Encounter Details Date Type Department Care Team (Late st Contact Info) Description 12/22/2016 Orders [place] [address] , Generic Conversion, Social History [...] Diagnosis Comments BASIC METABOLIC PANEL TIMED 12/22/2016 5:00 PM CDT documented in this encounter Results * (ABNORMAL) BASIC METABOLIC PANEL (12/22/2016 5:00 PM CDT) SODIUM S/P/B 139 135 - 147 MMOL/L 12/22/2016 4:34 PM CDT [facility] POTASSIUM S/P/B 3.2(L) 3.5 - 5.0 MMOL/L 12/22/2016 4:34 PM CDT [facility] CHLORIDE S/P/B 117(H) 98 - 107 MMOL/L 12/22/2016 4:34 PM CDT [facility] CO2 15.9(L) 22 - 29 MMOL/L 12/22/2016 4:34 PM CDT [facility] GLUCOSE 72 70 - 109 MG/DL 12/22/2016 4:34 PM CDT [facility] BUN 4(L) 7 - 19 MG/DL 12/22/2016 4:34 PM CDT [facility] CREATININE S/P/B 0.60 0.60 - 1.10 MG/DL 12/22/2016 4:34 PM CDT [facility] CALCIUM S/P/B 7.7(L) 8.4 - 10.2 MG/DL 12/22/2016 4:34 PM CDT [facility] EGFR NON-AFR. AMER. 127 >60 ML/MIN/1.7 3 M2 12/22/2016 4:34 PM CDT [facility] EGFR AFR. AMER. 154 >60 ML/MIN/1.7 3 M2 12/22/2016 4:34 PM CDT [facility] ANION GAP 6.1 MMOL/L 12/22/2016 4:34 PM CDT [facility] OSMOLALITY (CALC) 273 MOSM/KG 12/22/2016 4:34 PM CDT [facility] PLASMA SPECIMEN / Unknown 12/22/2016 5:00 PM CDT 12/22/2016 4:13 PM CDT us Generic Conversion Md [facility] Final R esult [facility] [address] [place] [address], [id number] documented in this encounter Visit Diagnoses Not on filedocumented in this encounter
--- OUTSIDE RECORDS SUMMARY | 2024-05-10 18:10 | XMS_ITS | Encounter Summary ---
Author Organization [facility] Address [address] [place] [address]. [place] [address] [place] [address] Care Team Providers Care Director Of Labor Relations Name Role Phone Unavailable Primary Care Provider Unavailabl e Encounter Details Date Type Department Care Team (Late st Contact Info) Description 12/23/2016 Orders Only ANY CONVERSION ONE [place], [place] [id number] , Generic Conversion, Social History Tobacco Use [...] GLUCOSE - MCCORMICK DOCKED DEVICE Routine 12/23/2016 11:53 AM CDT documented in this encounter Results * (ABNORMAL) POCT glucose (12/23/2016 11:53 AM CDT) GLUCOSE POC 176(H) 70 - 109 12/23/2016 11:03 AM CDT [facility] ORDERS INTERFACE WHOLE BLOOD SPECIMEN / Unknown 12/23/2016 11:53 AM CDT 12/23/2016 11:03 AM CDT us Generic Conversion Md PA[facility] POCT ORDERABLES - DEVIC E Final Result [facility] ORDERS INTERFACE US documented in this encounter Visit Diagnoses Not on filedocumented in this encounter
--- OUTSIDE RECORDS SUMMARY | 2024-05-10 18:10 | XMS_ITS | Encounter Summary ---
Author Organization [facility] Address [address] [place] [address]. [place] [address] [place] [address] Care Team Providers Care Cash Posting Representative Name Role Phone Unavailable Primary Care Provider Unavailabl e Encounter Details Date Type Department Care Team (Latest Contact Info) Description 12/22/2016 Abstract [facility] Social History Tobacco Use Types [...]
--- OUTSIDE RECORDS SUMMARY | 2024-05-10 18:10 | XMS_ITS | Encounter Summary ---
Author Organization [facility] Address [address] [place] [address]. [place] [address] [place] [address] Care Team Providers Care Studio Owner Name Role Phone Unavailable Primary Care Provider Unavailabl e Encounter Details Date Type Department Care Team (Late st Contact Info) Description 12/24/2016 Orders Only ANY CONVERSION ONE [place], [place] [id number] , Generic Conversion, Social History Tobacco Use [...] GLUCOSE - MCCORMICK DOCKED DEVICE Routine 12/24/2016 10:15 AM CDT documented in this encounter Results * (ABNORMAL) POCT glucose (12/24/2016 10:15 AM CDT) GLUCOSE POC 308(H) 70 - 109 12/24/2016 10:28 AM CDT [facility] ORDERS INTERFACE WHOLE BLOOD SPECIMEN / Unknown 12/24/2016 10:15 AM CDT 12/24/2016 10:28 AM CDT us Generic Conversion Md PA[facility] POCT ORDERABLES - DEVIC E Final Result [facility] ORDERS INTERFACE US documented in this encounter Visit Diagnoses Not on filedocumented in this encounter
--- OUTSIDE RECORDS SUMMARY | 2024-05-10 18:10 | XMS_ITS | Encounter Summary ---
Author Organization [facility] - [facility] Address [address] [place] [address]. [place] [address] [place] [address] Care Team Providers Care Boat Rigger Name Role Phone Unavailable Primary Care Provider Unavailabl e Encounter Details Date Type Department Care Team (Late st Contact Info) Description 12/22/2016 [place] [address] , Generic Conversion, Social History Tobacco Use [...] GLUCOSE - MCCORMICK DOCKED DEVICE Routine 12/22/2016 7:03 AM CDT documented in this encounter Results * (ABNORMAL) POCT glucose (12/22/2016 7:03 AM CDT) GLUCOSE POC 128(H) 70 - 109 12/22/2016 7:42 AM CDT [facility] ORDERS INTERFACE WHOLE BLOOD SPECIMEN / Unknown 12/22/2016 7:03 AM CDT 12/22/2016 7:42 AM CDT us Generic Conversion Md PASTRANA POCT ORDERABLES - DEVIC E Final Result [facility] ORDERS INTERFACE US documented in this encounter Visit Diagnoses Not on filedocumented in this encounter
--- OUTSIDE RECORDS SUMMARY | 2024-05-10 18:10 | XMS_ITS | Encounter Summary ---
Author Organization [facility] Address [address] [place] [address]. [place] [address] [place] [address] Care Team Providers Care Dredge Hand Name Role Phone Unavailable Primary Care Provider Unavailabl e Encounter Details Date Type Department Care Team (Late st Contact Info) Description 12/23/2016 Orders Only ANY CONVERSION ONE [place], [place] [id number] , Generic Conversion, Social History Tobacco Use [...] Associated Diagnosis Comments PHOSPHORUS, INORGANIC PHOSPHATE Routine 12/23/2016 3:02 AM CDT documented in this encounter Results * PHOSPHORUS, INORGANIC PHOSPHATE (12/23/2016 3:02 AM CDT) PHOSPHORUS 2.6 2.2 - 4.5 MG/DL 12/23/2016 2:[address] [facility] SERUM OR PLASMA SPECIMEN / Unknown 12/23/2016 3:02 AM CDT 12/23/2016 2:29 AM CDT us Generic Conversion Md PASTRANA LABORATORY Final R esult [facility] [address] [place] [address], [id number] documented in this encounter Visit Diagnoses Not on filedocumented in this encounter
--- OUTSIDE RECORDS SUMMARY | 2024-05-10 18:10 | XMS_ITS | Encounter Summary ---
Author Organization [facility] - [facility] Address [address] [place] [address]. [place] [address] [place] [address] Care Team Providers Care Vault Teller Name Role Phone Unavailable Primary Care Provider Unavailabl e Encounter Details Date Type Department Care Team (Late st Contact Info) Description 12/22/2016 Orders [place] [address] , Generic Conversion, Social History Tobacco Use [...] GLUCOSE - MCCORMICK DOCKED DEVICE Routine 12/22/2016 3:25 AM CDT documented in this encounter Results * (ABNORMAL) POCT glucose (12/22/2016 3:25 AM CDT) GLUCOSE POC 384(H) 70 - 109 12/22/2016 2:49 AM CDT [facility] LAB ORDERS INTERFACE WHOLE BLOOD SPECIMEN / Unknown 12/22/2016 3:25 AM CDT 12/22/2016 2:49 AM CDT us Generic Conversion Md PASTRANA POCT ORDERABLES - DEVIC E Final Result [facility] LAB ORDERS INTERFACE US documented in this encounter Visit Diagnoses Not on filedocumented in this encounter
--- OUTSIDE RECORDS SUMMARY | 2024-05-10 18:10 | XMS_ITS | Encounter Summary ---
Author Organization [facility] Address [address] [place] [address]. [place] [address] [place] [address] Care Team Providers Care Client Resource Specialist Name Role Phone Unavailable Primary Care Provider Unavailabl e Encounter Details Date Type Department Care Team (Late st Contact Info) Description 12/22/2016 Orders Only ANY CONVERSION ONE [place], [place] [id number] , Generic Conversion, Social History Tobacco Use [...] GLUCOSE - MCCORMICK DOCKED DEVICE Routine 12/22/2016 7:08 PM CDT documented in this encounter Results * (ABNORMAL) POCT glucose (12/22/2016 7:08 PM CDT) GLUCOSE POC 58(L) 70 - 109 12/22/2016 6:41 PM CDT [facility] LAB ORDERS INTERFACE WHOLE BLOOD SPECIMEN / Unknown 12/22/2016 7:08 PM CDT 12/22/2016 6:41 PM CDT us Generic Conversion Md PASTRANA POCT ORDERABLES - DEVIC E Final Result [facility] LAB ORDERS INTERFACE US documented in this encounter Visit Diagnoses Not on filedocumented in this encounter
--- OUTSIDE RECORDS SUMMARY | 2024-05-10 18:10 | XMS_ITS | Encounter Summary ---
Author Organization [facility] Address [address] [place] [address]. [place] [address] [place] [address] Care Team Providers Care Quality Control Lead Name Role Phone Unavailable Primary Care Provider Unavailabl e Encounter Details Date Type Department Care Team (Late st Contact Info) Description 12/22/2016 Orders Only ANY CONVERSION ONE [place], [place] [id number] , Generic Conversion, Social History Tobacco Use [...] GLUCOSE - MCCORMICK DOCKED DEVICE Routine 12/22/2016 1:29 PM CDT documented in this encounter Results * (ABNORMAL) POCT glucose (12/22/2016 1:29 PM CDT) GLUCOSE POC 203(H) 70 - 109 12/22/2016 12:31 PM CDT [facility] LAB ORDERS INTERFACE WHOLE BLOOD SPECIMEN / Unknown 12/22/2016 1:29 PM CDT 12/22/2016 12:31 PM CDT us Generic Conversion Md APSTRANA POCT ORDERABLES - DEVIC E Final Result [facility] ORDERS INTERFACE US documented in this encounter Visit Diagnoses Not on filedocumented in this encounter
--- OUTSIDE RECORDS SUMMARY | 2024-05-10 18:10 | XMS_ITS | Encounter Summary ---
Author Organization [facility] Address [address] [place] [address]. [place] [address] [place] [address] Care Team Providers Care Darkroom Technician Name Role Phone Unavailable Primary Care Provider Unavailabl e Encounter Details Date Type Department Care Team (Late st Contact Info) Description 12/24/2016 Orders Only ANY CONVERSION ONE [place], [place] [id number] , Generic Conversion, Social History Tobacco Use [...] Associated Diagnosis Comments BETA-HYDROXYBUTYRAT E TIMED 12/24/2016 8:43 AM CDT documented in this encounter Results * (ABNORMAL) BETA-HYDROXYBUTYRATE (12/24/2016 8:43 AM CDT) BETA-HYDROXYBU TYRATE 6.1(H) 0.0 - 0.3 MMOL/L 12/24/2016 7:[address] [facility] SERUM OR PLASMA SPECIMEN / Unknown 12/24/2016 8:43 AM CDT 12/24/2016 7:46 AM CDT us Generic Conversion Md PASTRANA LABORATORY Final R esult [facility] [address] [place] [address], [id number] documented in this encounter Visit Diagnoses Not on filedocumented in this encounter
--- OUTSIDE RECORDS SUMMARY | 2024-05-10 18:10 | XMS_ITS | Encounter Summary ---
Author Organization [facility] Address [address] [place] [address]. [place] [address] [place] [address] Care Team Providers Care Customer Engagement Analyst Name Role Phone Unavailable Primary Care Provider Unavailabl e Encounter Details Date Type Department Care Team (Latest Contact Info) Description 12/23/2016 Abstract [facility] Social [...]
--- OUTSIDE RECORDS SUMMARY | 2024-05-10 18:10 | XMS_ITS | Encounter Summary ---
Author Organization [facility] Address [address] [place] [address]. [place] [address] [place] [address] Care Team Providers Care Operations Manager Name Role Phone Unavailable Primary Care Provider Unavailabl e Encounter Details Date Type Department Care Team (Late st Contact Info) Description 12/22/2016 Orders Only ANY CONVERSION ONE [place], [place] [id number] , Generic Conversion, Social History Tobacco Use [...] Procedure Name Priority Date/Time Associated Diagnosis Comments CULTURE, BACTERIA, BLOOD NOW 12/22/2016 12:21 AM CDT documented in this encounter Results * CULTURE, BACTERIA, BLOOD (12/22/2016 12:21 AM CDT) SPEC DESCRIPTION BLOOD 12/21/2016 10:59 PM CDT [facility] SPECIAL REQUESTS NO SPECIAL REQUEST 12/21/2016 10:59 PM CDT [facility] CULTURE RESULT NO GROWTH 5 DAYS 12/26/2016 11:00 PM CDT [facility] BLOOD SPECIMEN OBTAINED FOR BLOOD CULTURE / Unknown 12/22/2016 12:21 AM CDT 12/21/2016 11:25 PM CDT us Generic Conversion Md PASTRANA MICROBIOLOGY - GENERAL ORDERABLES Final Result Performing Organization Address City/State/[facility] Co de Phone Number [facility] [address] [place] [id number], [id number] documented in this encounter Visit Diagnoses Not on filedocumented in this encounter
--- OUTSIDE RECORDS SUMMARY | 2024-05-10 18:10 | XMS_ITS | Encounter Summary ---
Author Organization [facility] Address [address] [place] [address]. [place] [address] [place] [address] Care Team Providers Care Pound Attendant Name Role Phone Unavailable Primary Care Provider Unavailabl e Encounter Details Date Type Department Care Team (Late st Contact Info) Description 12/22/2016 Orders Only ANY CONVERSION ONE [place], [place] [id number] , Generic Conversion, Social History Tobacco Use [...] Diagnosis Comments PHOSPHORUS, INORGANIC PHOSPHATE TIMED 12/22/2016 5:00 PM CDT documented in this encounter Results * (ABNORMAL) PHOSPHORUS, INORGANIC PHOSPHATE (12/22/2016 5:00 PM CDT) PHOSPHORUS 1.4(L) 2.2 - 4.5 MG/DL 12/22/2016 4:34 PM CDT [facility] SERUM OR PLASMA SPECIMEN / Unknown 12/22/2016 5:00 PM CDT 12/22/2016 4:13 PM CDT us Generic Conversion Md PASTRANA LABORATORY Final R esult [facility] [address] [place] [address], [id number] documented in this encounter Visit Diagnoses Not on filedocumented in this encounter
--- OUTSIDE RECORDS SUMMARY | 2024-05-10 18:10 | XMS_ITS | Encounter Summary ---
Author Organization [facility] Address [address] [place] [address]. [place] [address] [place] [address] Care Team Providers Care Physician Office Specialist Name Role Phone Unavailable Primary Care Provider Unavailabl e Encounter Details Date Type Department Care Team (Late st Contact Info) Description 12/23/2016 Orders Only ANY CONVERSION ONE [place], [place] [id number] , Generic Conversion, Social History Tobacco Use [...] Associated Diagnosis Comments PHOSPHORUS, INORGANIC PHOSPHATE TIMED 12/23/2016 5:00 PM CDT documented in this encounter Results * PHOSPHORUS, INORGANIC PHOSPHATE (12/23/2016 5:00 PM CDT) PHOSPHORUS 2.5 2.2 - 4.5 MG/DL 12/23/2016 9:50 PM CDT [facility] SERUM OR PLASMA SPECIMEN / Unknown 12/23/2016 5:00 PM CDT 12/23/2016 9:28 PM CDT us Generic Conversion Md PASTRANA LABORATORY Final R esult [facility] [address] [place] [address], [id number] documented in this encounter Visit Diagnoses Not on filedocumented in this encounter
--- OUTSIDE RECORDS SUMMARY | 2024-05-10 18:10 | XMS_ITS | Encounter Summary ---
Author Organization [facility] Address [address] [place] [address]. [place] [address] [place] [address] Care Team Providers Care Packer Name Role Phone Unavailable Primary Care Provider Unavailabl e Encounter Details Date Type Department Care Team (Late st Contact Info) Description 12/22/2016 Orders Only [place] [address] , Generic Conversion, Social History Tobacco Use [...] GLUCOSE - MCCORMICK DOCKED DEVICE Routine 12/22/2016 6:04 PM CDT documented in this encounter Results * POCT glucose (12/22/2016 6:04 PM CDT) GLUCOSE POC 75 70 - 109 12/22/2016 5:10 PM CDT [facility] ORDERS INTERFACE WHOLE BLOOD SPECIMEN / Unknown 12/22/2016 6:04 PM CDT 12/22/2016 5:09 PM CDT us Generic Conversion Md PASTRANA POCT ORDERABLES - DEVIC E Final Result [facility] ORDERS INTERFACE US documented in this encounter Visit Diagnoses Not on filedocumented in this encounter
--- OUTSIDE RECORDS SUMMARY | 2024-05-10 18:10 | XMS_ITS | Encounter Summary ---
Author Organization [facility] Address [address] [place] [address]. [place] [address] [place] [address] Care Team Providers Care Vault Cashier Name Role Phone Unavailable Primary Care Provider Unavailabl e Encounter Details Date Type Department Care Team (Late st Contact Info) Description 12/22/2016 Orders Only ANY CONVERSION ONE [place], [place] [id number] , Generic Conversion, Social History Tobacco Use [...] GLUCOSE - MCCORMICK DOCKED DEVICE Routine 12/22/2016 8:11 PM CDT documented in this encounter Results * (ABNORMAL) POCT glucose (12/22/2016 8:11 PM CDT) GLUCOSE POC 180(H) 70 - 109 12/23/2016 1:52 AM CDT [facility] ORDERS INTERFACE WHOLE BLOOD SPECIMEN / Unknown 12/22/2016 8:11 PM CDT 12/23/2016 1:52 AM CDT us Generic Conversion Md PASTRANA POCT ORDERABLES - DEVIC E Final Result [facility] ORDERS INTERFACE US documented in this encounter Visit Diagnoses Not on filedocumented in this encounter
--- OUTSIDE RECORDS SUMMARY | 2024-05-10 18:10 | XMS_ITS | Encounter Summary ---
Author Organization [facility] Address [address] [place] [address]. [place] [address] [place] [address] Care Team Providers Care Substance Abuse Technician Name Role Phone Unavailable Primary Care Provider Unavailabl e Encounter Details Date Type Department Care Team (Late st Contact Info) Description 12/22/2016 Orders [place] [address] , Generic Conversion, Social History Tobacco Use [...] GLUCOSE - MCCORMICK DOCKED DEVICE Routine 12/22/2016 6:16 AM CDT documented in this encounter Results * (ABNORMAL) POCT glucose (12/22/2016 6:16 AM CDT) GLUCOSE POC 170(H) 70 - 109 12/22/2016 7:42 AM CDT [facility] ORDERS INTERFACE WHOLE BLOOD SPECIMEN / Unknown 12/22/2016 6:16 AM CDT 12/22/2016 7:42 AM CDT us Generic Conversion Md PASTRANA POCT ORDERABLES - DEVIC E Final Result [facility] ORDERS INTERFACE US documented in this encounter Visit Diagnoses Not on filedocumented in this encounter
--- OUTSIDE RECORDS SUMMARY | 2024-05-10 18:10 | XMS_ITS | Encounter Summary ---
Author Organization [facility] Address [address] [place] [address]. [place] [address] [place] [address] Care Team Providers Care Tester Printed Circuit Boards Name Role Phone Unavailable Primary Care Provider Unavailabl e Encounter Details Date Type Department Care Team (Late st Contact Info) Description 12/22/2016 Orders Only ANY CONVERSION ONE [place], [place] [id number] , Generic Conversion, Social History Tobacco Use [...] GLUCOSE - MCCORMICK DOCKED DEVICE Routine 12/22/2016 5:03 PM CDT documented in this encounter Results * POCT glucose (12/22/2016 5:03 PM CDT) GLUCOSE POC 79 70 - 109 12/22/2016 4:08 PM CDT [facility] ORDERS INTERFACE WHOLE BLOOD SPECIMEN / Unknown 12/22/2016 5:03 PM CDT 12/22/2016 4:08 PM CDT us Generic Conversion Md PASTRANA POCT ORDERABLES - DEVIC E Final Result [facility] ORDERS INTERFACE US documented in this encounter Visit Diagnoses Not on filedocumented in this encounter
--- OUTSIDE RECORDS SUMMARY | 2024-05-10 18:10 | XMS_ITS | Encounter Summary ---
Author Organization [facility] Address [address] [place] [address]. [place] [address] [place] [address] Care Team Providers Care Drivability Technician Name Role Phone Unavailable Primary Care Provider Unavailabl e Encounter Details Date Type Department Care Team (Late st Contact Info) Description 12/22/2016 Orders Only ANY CONVERSION ONE [place], [place] [id number] , Generic Conversion, Social History Tobacco Use [...] Diagnosis Comments PHOSPHORUS, INORGANIC PHOSPHATE TIMED 12/22/2016 4:19 AM CDT documented in this encounter Results * PHOSPHORUS, INORGANIC PHOSPHATE (12/22/2016 4:19 AM CDT) PHOSPHORUS 3.4 2.2 - 4.5 MG/DL 12/22/2016 3:[address] [facility] SERUM OR PLASMA SPECIMEN / Unknown 12/22/2016 4:19 AM CDT 12/22/2016 3:22 AM CDT us Generic Conversion Md PASTRANA LABORATORY Final R esult [facility] [address] [place] [address], [id number] documented in this encounter Visit Diagnoses Not on filedocumented in this encounter
--- OUTSIDE RECORDS SUMMARY | 2024-05-10 18:10 | XMS_ITS | Encounter Summary ---
Author Organization [facility] Address [address] [place] [address]. [place] [address] [place] [address] Care Team Providers Care Prepared Foods Supervisor Name Role Phone Unavailable Primary Care Provider Unavailabl e Encounter Details Date Type Department Care Team (Late st Contact Info) Description 12/22/2016 Orders Only ANY CONVERSION ONE [place], [place] [id number] , Generic Conversion, Social History Tobacco Use [...] GLUCOSE - MCCORMICK DOCKED DEVICE Routine 12/22/2016 11:25 AM CDT documented in this encounter Results * (ABNORMAL) POCT glucose (12/22/2016 11:25 AM CDT) GLUCOSE POC 195(H) 70 - 109 12/22/2016 10:28 AM CDT [facility] ORDERS INTERFACE WHOLE BLOOD SPECIMEN / Unknown 12/22/2016 11:25 AM CDT 12/22/2016 10:28 AM CDT us Generic Conversion Md PASTRANA POCT ORDERABLES - DEVIC E Final Result [facility] ORDERS INTERFACE US documented in this encounter Visit Diagnoses Not on filedocumented in this encounter
--- OUTSIDE RECORDS SUMMARY | 2024-05-10 18:10 | XMS_ITS | Encounter Summary ---
Author Organization [facility] Address [address] [place] [address]. [place] [address] [place] [address] Care Team Providers Care Shingle Carrier Name Role Phone Unavailable Primary Care Provider Unavailabl e Encounter Details Date Type Department Care Team (Late st Contact Info) Description 12/23/2016 Orders [place] [address] , Generic Conversion, Social History [...] Diagnosis Comments BASIC METABOLIC PANEL TIMED 12/23/2016 5:00 PM CDT documented in this encounter Results * (ABNORMAL) BASIC METABOLIC PANEL (12/23/2016 5:00 PM CDT) SODIUM S/P/B 131(L) 135 - 147 MMOL/L 12/23/2016 4:48 PM CDT [facility] POTASSIUM S/P/B 4.5 3.5 - 5.0 MMOL/L 12/23/2016 4:48 PM CDT [facility] CHLORIDE S/P/B 100 98 - 107 MMOL/L 12/23/2016 4:48 PM CDT [facility] CO2 15.4(L) 22 - 29 MMOL/L 12/23/2016 4:48 PM CDT [facility] GLUCOSE 321(H) 70 - 109 MG/DL 12/23/2016 4:48 PM CDT [facility] BUN 3(L) 7 - 19 MG/DL 12/23/2016 4:48 PM CDT [facility] CREATININE S/P/B 0.68 0.60 - 1.10 MG/DL 12/23/2016 4:48 PM CDT [facility] CALCIUM S/P/B 8.9 8.4 - 10.2 MG/DL 12/23/2016 4:48 PM CDT [facility] EGFR NON-AFR. AMER. 110 >60 ML/MIN/1.7 3 M2 12/23/2016 4:48 PM CDT [facility] EGFR AFR. AMER. 134 >60 ML/MIN/1.7 3 M2 12/23/2016 4:48 PM CDT [facility] ANION GAP 15.6 MMOL/L 12/23/2016 4:48 PM CDT [facility] OSMOLALITY (CALC) 272 MOSM/KG 12/23/2016 4:48 PM CDT [facility] PLASMA SPECIMEN / Unknown 12/23/2016 5:00 PM CDT 12/23/2016 4:24 PM CDT us Generic Conversion Md PASTRANA LABORATORY Final R esult [facility] [address] [place] [address], [id number] documented in this encounter Visit Diagnoses Not on filedocumented in this encounter
--- OUTSIDE RECORDS SUMMARY | 2024-05-10 18:10 | XMS_ITS | Encounter Summary ---
Author Organization [facility] Address [address] [place] [address]. [place] [address] [place] [address] Care Team Providers Care Rolling Mill Operator Helper Name Role Phone Unavailable Primary Care Provider Unavailabl e Encounter Details Date Type Department Care Team (Late st Contact Info) Description 12/24/2016 Orders Only ANY CONVERSION ONE [place], [place] [id number] , Generic Conversion, Social History Tobacco Use [...] Date/Time Associated Diagnosis Comments MAGNESIUM TIMED 12/24/2016 8:43 AM CDT documented in this encounter Results * (ABNORMAL) MAGNESIUM (12/24/2016 8:43 AM CDT) MAGNESIUM 1.4(L) 1.7 - 2.2 MG/DL 12/24/2016 8:09 AM CDT [facility] Comment:RESULT QUESTIONABLE DUE TO HEMOLYSIS, CONSIDER RECOLLECTION. SERUM OR PLASMA SPECIMEN / Unknown 12/24/2016 8:43 AM CDT 12/24/2016 7:46 AM CDT us Generic Conversion Md PASTRANA LABORATORY Final R esult [facility] [address] [place] [address], [id number] documented in this encounter Visit Diagnoses Not on filedocumented in this encounter
--- OUTSIDE RECORDS SUMMARY | 2024-05-10 18:10 | XMS_ITS | Encounter Summary ---
Author Organization [facility] Address [address] [place] [address]. [place] [address] [place] [address] Care Team Providers Care Mult Au Matic Operator Name Role Phone Unavailable Primary Care Provider Unavailabl e Encounter Details Date Type Department Care Team (Late st Contact Info) Description 12/22/2016 Orders [place] [address] , Generic Conversion, Social History Tobacco Use [...] GLUCOSE - MCCORMICK DOCKED DEVICE Routine 12/22/2016 3:02 PM CDT documented in this encounter Results * (ABNORMAL) POCT glucose (12/22/2016 3:02 PM CDT) GLUCOSE POC 139(H) 70 - 109 12/22/2016 2:12 PM CDT [facility] ORDERS INTERFACE WHOLE BLOOD SPECIMEN / Unknown 12/22/2016 3:02 PM CDT 12/22/2016 2:12 PM CDT us Generic Conversion Md PASTRANA POCT ORDERABLES - DEVIC E Final Result [facility] ORDERS INTERFACE US documented in this encounter Visit Diagnoses Not on filedocumented in this encounter
--- OUTSIDE RECORDS SUMMARY | 2024-05-10 18:10 | XMS_ITS | Encounter Summary ---
Author Organization [facility] Address [address] [place] [address]. [place] [address] [place] [address] Care Team Providers Care Job Boss Name Role Phone Unavailable Primary Care Provider Unavailabl e Encounter Details Date Type Department Care Team (Late st Contact Info) Description 12/24/2016 Orders Only ANY CONVERSION ONE [place], [place] [id number] , Generic Conversion, Social History Tobacco Use [...] Diagnosis Comments PHOSPHORUS, INORGANIC PHOSPHATE TIMED 12/24/2016 1:20 AM CDT documented in this encounter Results * (ABNORMAL) PHOSPHORUS, INORGANIC PHOSPHATE (12/24/2016 1:20 AM CDT) PHOSPHORUS 2.1(L) 2.2 - 4.5 MG/DL 12/24/2016 1:09 AM CDT [facility] SERUM OR PLASMA SPECIMEN / Unknown 12/24/2016 1:20 AM CDT 12/24/2016 12:28 AM CDT us Generic Conversion Md PASTRANA LABORATORY Final R esult [facility] [address] [place] [address], [id number] documented in this encounter Visit Diagnoses Not on filedocumented in this encounter
--- OUTSIDE RECORDS SUMMARY | 2024-05-10 18:10 | XMS_ITS | Encounter Summary ---
Author Organization [facility] Address [address] [place] [address]. [place] [address] [place] [address] Care Team Providers Care Oil Speculator Name Role Phone Unavailable Primary Care Provider Unavailabl e Encounter Details Date Type Department Care Team (Late st Contact Info) Description 12/23/2016 Orders Only [place] [address] , Generic Conversion, Social History Tobacco Use [...] GLUCOSE - MCCORMICK DOCKED DEVICE Routine 12/23/2016 12:44 AM CDT documented in this encounter Results * POCT glucose (12/23/2016 12:44 AM CDT) GLUCOSE POC 90 70 - 109 12/23/2016 1:53 AM CDT [facility] ORDERS INTERFACE WHOLE BLOOD SPECIMEN / Unknown 12/23/2016 12:44 AM CDT 12/23/2016 1:52 AM CDT us Generic Conversion Md PASTRANA POCT ORDERABLES - DEVIC E Final Result [facility] ORDERS INTERFACE US documented in this encounter Visit Diagnoses Not on filedocumented in this encounter
--- OUTSIDE RECORDS SUMMARY | 2024-05-10 18:10 | XMS_ITS | Encounter Summary ---
Author Organization [facility] Address [address] [place] [address]. [place] [address] [place] [address] Care Team Providers Care Senior Director Marketing Name Role Phone Unavailable Primary Care Provider Unavailabl e Encounter Details Date Type Department Care Team (Late st Contact Info) Description 12/22/2016 Orders Only ANY CONVERSION ONE [place], [place] [id number] , Generic Conversion, Social History Tobacco Use [...] GLUCOSE - MCCORMICK DOCKED DEVICE Routine 12/22/2016 7:36 PM CDT documented in this encounter Results * (ABNORMAL) POCT glucose (12/22/2016 7:36 PM CDT) GLUCOSE POC 173(H) 70 - 109 12/22/2016 6:41 PM CDT [facility] ORDERS INTERFACE WHOLE BLOOD SPECIMEN / Unknown 12/22/2016 7:36 PM CDT 12/22/2016 6:41 PM CDT us Generic Conversion Md PASTRANA POCT ORDERABLES - DEVIC E Final Result [facility] ORDERS INTERFACE US documented in this encounter Visit Diagnoses Not on filedocumented in this encounter
--- OUTSIDE RECORDS SUMMARY | 2024-05-10 18:10 | XMS_ITS | Encounter Summary ---
Author Organization [facility] Address [address] [place] [address]. [place] [address] [place] [address] Care Team Providers Care Steam Shovel Runner Name Role Phone Unavailable Primary Care Provider Unavailabl e Encounter Details Date Type Department Care Team (Late st Contact Info) Description 12/23/2016 [place] [address] , Generic Conversion, Social History Tobacco Use [...] Priority Date/Time Associated Diagnosis Comments MAGNESIUM Routine 12/23/2016 3:02 AM CDT documented in this encounter Results * MAGNESIUM (12/23/2016 3:02 AM CDT) MAGNESIUM 2.1 1.7 - 2.2 MG/DL 12/23/2016 2:54 AM CDT [facility] Comment:RESULT QUESTIONABLE DUE TO HEMOLYSIS, CONSIDER RECOLLECTION. SERUM OR PLASMA SPECIMEN / Unknown 12/23/2016 3:02 AM CDT 12/23/2016 2:29 AM CDT us Generic Conversion Md [facility] Final R esult [facility] [address] [place] [address], [id number] documented in this encounter Visit Diagnoses Not on filedocumented in this encounter
--- OUTSIDE RECORDS SUMMARY | 2024-05-10 18:10 | XMS_ITS | Encounter Summary ---
Author Organization [facility] Address [address] [place] [address]. [place] [address] [place] [address] Care Team Providers Care Rn Medication Name Role Phone Unavailable Primary Care Provider Unavailabl e Encounter Details Date Type Department Care Team (Late st Contact Info) Description 12/23/2016 Orders Only ANY CONVERSION ONE [place], [place] [id number] , Generic Conversion, Social History Tobacco Use [...] GLUCOSE - MCCORMICK DOCKED DEVICE Routine 12/23/2016 5:33 AM CDT documented in this encounter Results * (ABNORMAL) POCT glucose (12/23/2016 5:33 AM CDT) GLUCOSE POC 49(L) 70 - 109 12/23/2016 4:56 AM CDT [facility] ORDERS INTERFACE WHOLE BLOOD SPECIMEN / Unknown 12/23/2016 5:33 AM CDT 12/23/2016 4:56 AM CDT us Generic Conversion Md PASTRANA POCT ORDERABLES - DEVIC E Final Result [facility] ORDERS INTERFACE US documented in this encounter Visit Diagnoses Not on filedocumented in this encounter
--- OUTSIDE RECORDS SUMMARY | 2024-05-10 18:10 | XMS_ITS | Encounter Summary ---
Author Organization [facility] Address [address] [place] [address]. [place] [address] [place] [address] Care Team Providers Care Teradata Developer Name Role Phone Unavailable Primary Care Provider Unavailabl e Encounter Details Date Type Department Care Team (Late st Contact Info) Description 12/22/2016 Orders Only ANY CONVERSION ONE [place], [place] [id number] , Generic Conversion, Social History Tobacco Use [...] GLUCOSE - MCCORMICK DOCKED DEVICE Routine 12/22/2016 12:32 PM CDT documented in this encounter Results * (ABNORMAL) POCT glucose (12/22/2016 12:32 PM CDT) GLUCOSE POC 194(H) 70 - 109 12/22/2016 11:38 AM CDT [facility] ORDERS INTERFACE WHOLE BLOOD SPECIMEN / Unknown 12/22/2016 12:32 PM CDT 12/22/2016 11:38 AM CDT us Generic Conversion Md PASTRANA POCT ORDERABLES - DEVIC E Final Result [facility] ORDERS INTERFACE US documented in this encounter Visit Diagnoses Not on filedocumented in this encounter
--- OUTSIDE RECORDS SUMMARY | 2024-05-10 18:10 | XMS_ITS | Encounter Summary ---
Author Organization [facility] Address [address] [place] [address]. [place] [address] [place] [address] Care Team Providers Care Buzzsaw Operator Helper Name Role Phone Unavailable Primary Care Provider Unavailabl e Encounter Details Date Type Department Care Team (Late st Contact Info) Description 12/24/2016 Orders Only ANY CONVERSION ONE [place], [place] [id number] , Generic Conversion, Social History Tobacco Use [...] Diagnosis Comments PHOSPHORUS, INORGANIC PHOSPHATE TIMED 12/24/2016 1:29 PM CDT documented in this encounter Results * PHOSPHORUS, INORGANIC PHOSPHATE (12/24/2016 1:29 PM CDT) PHOSPHORUS 2.3 2.2 - 4.5 MG/DL 12/24/2016 1:33 PM CDT [facility] SERUM OR PLASMA SPECIMEN / Unknown 12/24/2016 1:29 PM CDT 12/24/2016 12:30 PM CDT us Generic Conversion Md [facility] Final R esult [facility] [address] [place] [address], [id number] documented in this encounter Visit Diagnoses Not on filedocumented in this encounter
--- OUTSIDE RECORDS SUMMARY | 2024-05-10 18:10 | XMS_ITS | Encounter Summary ---
Author Organization [facility] Address [address] [place] [address]. [place] [address] [place] [address] Care Team Providers Care Bun Machine Operator Name Role Phone Unavailable Primary Care Provider Unavailabl e Encounter Details Date Type Department Care Team (Late st Contact Info) Description 12/23/2016 Orders Only ANY CONVERSION ONE [place], [place] [id number] , Generic Conversion, Social History Tobacco Use [...] Priority Date/Time Associated Diagnosis Comments MAGNESIUM TIMED 12/23/2016 5:00 PM CDT documented in this encounter Results * MAGNESIUM (12/23/2016 5:00 PM CDT) MAGNESIUM 1.7 1.7 - 2.2 MG/DL 12/23/2016 9:50 PM CDT [facility] SERUM OR PLASMA SPECIMEN / Unknown 12/23/2016 5:00 PM CDT 12/23/2016 9:28 PM CDT us Generic Conversion Md [facility] Final R esult [facility] [address] [place] [id number], [id number] documented in this encounter Visit Diagnoses Not on filedocumented in this encounter
--- OUTSIDE RECORDS SUMMARY | 2024-05-10 18:10 | XMS_ITS | Encounter Summary ---
Author Organization [facility] Address [address] [place] [address]. [place] [address] [place] [address] Care Team Providers Care Hospitality Ambassador Name Role Phone Unavailable Primary Care Provider Unavailabl e Encounter Details Date Type Department Care Team (Late st Contact Info) Description 12/22/2016 Orders [place] [address] , Generic Conversion, Social History [...] Diagnosis Comments BASIC METABOLIC PANEL TIMED 12/22/2016 10:00 AM CDT documented in this encounter Results * (ABNORMAL) BASIC METABOLIC PANEL (12/22/2016 10:00 AM CDT) SODIUM S/P/B 134(L) 135 - 147 MMOL/L 12/22/2016 9:53 AM CDT [facility] POTASSIUM S/P/B 4.3 3.5 - 5.0 MMOL/L 12/22/2016 9:53 AM CDT [facility] CHLORIDE S/P/B 107 98 - 107 MMOL/L 12/22/2016 9:53 AM CDT [facility] CO2 10.4(L) 22 - 29 MMOL/L 12/22/2016 9:53 AM CDT [facility] GLUCOSE 220(H) 70 - 109 MG/DL 12/22/2016 9:53 AM CDT [facility] BUN 10 7 - 19 MG/DL 12/22/2016 9:53 AM CDT [facility] CREATININE S/P/B 0.79 0.60 - 1.10 MG/DL 12/22/2016 9:53 AM CDT [facility] CALCIUM S/P/B 8.6 8.4 - 10.2 MG/DL 12/22/2016 10:02 AM CDT [facility] EGFR NON-AFR. AMER. 93 >60 ML/MIN/1.7 3 M2 12/22/2016 9:53 AM CDT [facility] EGFR AFR. AMER. 112 >60 ML/MIN/1.7 3 M2 12/22/2016 9:53 AM CDT [facility] ANION GAP 16.6 MMOL/L 12/22/2016 9:53 AM CDT [facility] OSMOLALITY (CALC) 274 MOSM/KG 12/22/2016 9:53 AM T [facility] PLASMA SPECIMEN / Unknown 12/22/2016 10:00 AM CDT 12/22/2016 9:25 AM CDT us Generic Conversion Md [facility] Final R esult [facility] [address] [place] [address], [id number] documented in this encounter Visit Diagnoses Not on filedocumented in this encounter
--- OUTSIDE RECORDS SUMMARY | 2024-05-10 18:10 | XMS_ITS | Encounter Summary ---
Author Organization [facility] Address [address] [place] [address]. [place] [address] [place] [address] Care Team Providers Care Gun Tester Name Role Phone Unavailable Primary Care Provider Unavailabl e Encounter Details Date Type Department Care Team (Late st Contact Info) Description 12/23/2016 Orders Only ANY CONVERSION ONE [place], [place] [id number] , Generic Conversion, Social History Tobacco Use [...] Date/Time Associated Diagnosis Comments BETA-HYDROXYBUTYRAT E TIMED 12/23/2016 8:40 PM CDT documented in this encounter Results * (ABNORMAL) BETA-HYDROXYBUTYRATE (12/23/2016 8:40 PM CDT) BETA-HYDROXYBU TYRATE 0.7(H) 0.0 - 0.3 MMOL/L 12/23/2016 7:56 PM CDT [facility] SERUM OR PLASMA SPECIMEN / Unknown 12/23/2016 8:40 PM CDT 12/23/2016 7:49 PM CDT us Generic Conversion Md [facility] Final R esult [facility] [address] [place] [address], [id number] documented in this encounter Visit Diagnoses Not on filedocumented in this encounter
--- OUTSIDE RECORDS SUMMARY | 2024-05-10 18:10 | XMS_ITS | Encounter Summary ---
Author Organization [facility] Address [address] [place] [address]. [place] [address] [place] [address] Care Team Providers Care Director Of Events Name Role Phone Unavailable Primary Care Provider Unavailabl e Encounter Details Date Type Department Care Team (Late st Contact Info) Description 12/22/2016 Orders Only [place] [address] , Generic Conversion, Social History [...] Date/Time Associated Diagnosis Comments LACTIC ACID STAT 12/22/2016 12:17 AM CDT documented in this encounter Results * (ABNORMAL) LACTIC ACID (12/22/2016 12:17 AM CDT) LACTIC ACID VENOUS 2.4(H) 0.5 - 2.0 MMOL/L 12/21/2016 11:46 PM CDT [facility] Comment: AN ORDER FOR A REPEAT LACTIC ACID TEST IS REQUIRED WITHIN 6 HOURS OF DIAGNOSIS ON A PATIENT WITH SEVERE SEPSIS. IN A PATIENT WITHOUT SEPSIS, A LACTIC ACID VALUE UP TO 2.2 MMOL/L MAY BE NORMAL. PLASMA SPECIMEN / Unknown 12/22/2016 12:17 AM CDT 12/21/2016 11:18 PM CDT us Generic Conversion Md [facility] Final R esult Performing Organization Address City/State/[facility] [[email or web address]] Co de Phone Number [facility] [address] [place] [address], [id number] documented in this encounter Visit Diagnoses Not on filedocumented in this encounter
--- OUTSIDE RECORDS SUMMARY | 2024-05-10 18:10 | XMS_ITS | Encounter Summary ---
Author Organization [facility] Address [address] [place] [address]. [place] [address] [place] [address] Care Team Providers Care Tire Regrooving Machine Operator Name Role Phone Unavailable Primary Care Provider Unavailabl e Encounter Details Date Type Department Care Team (Late st Contact Info) Description 12/23/2016 Orders Only [place] [address] , Generic Conversion, Social History Tobacco Use [...] GLUCOSE - MCCORMICK DOCKED DEVICE Routine 12/23/2016 3:07 PM CDT documented in this encounter Results * (ABNORMAL) POCT glucose (12/23/2016 3:07 PM CDT) GLUCOSE POC 231(H) 70 - 109 12/23/2016 2:11 PM CDT [facility] ORDERS INTERFACE WHOLE BLOOD SPECIMEN / Unknown 12/23/2016 3:07 PM CDT 12/23/2016 2:11 PM CDT us Generic Conversion Md PA[facility] POCT ORDERABLES - DEVIC E Final Result [facility] ORDERS INTERFACE US documented in this encounter Visit Diagnoses Not on filedocumented in this encounter
--- OUTSIDE RECORDS SUMMARY | 2024-05-10 18:10 | XMS_ITS | Encounter Summary ---
Author Organization [facility] Address [address] [place] [address]. [place] [address] [place] [address] Care Team Providers Care Well Blower Name Role Phone Unavailable Primary Care Provider Unavailabl e Encounter Details Date Type Department Care Team (Late st Contact Info) Description 12/23/2016 Orders Only ANY CONVERSION ONE [place], [place] [id number] , Generic Conversion, Social History Tobacco Use [...] Procedure Name Priority Date/Time Associated Diagnosis Comments BETA-HYDROXYBUTYR ATE Nurse Collected Priority 12/23/2016 3:00 PM CDT documented in this encounter Results * (ABNORMAL) BETA-HYDROXYBUTYRATE (12/23/2016 3:00 PM CDT) BETA-HYDROXYBU TYRATE 5.2(H) 0.0 - 0.3 MMOL/L 12/23/2016 2:29 PM CDT [facility] SERUM OR PLASMA SPECIMEN / Unknown 12/23/2016 3:00 PM CDT 12/23/2016 2:20 PM CDT us Generic Conversion Md [facility] Final R esult [facility] [address] [place] [address], [id number] documented in this encounter Visit Diagnoses Not on filedocumented in this encounter
--- OUTSIDE RECORDS SUMMARY | 2024-05-10 18:10 | XMS_ITS | Encounter Summary ---
Author Organization [facility] Address [address] [place] [address]. [place] [address] [place] [address] Care Team Providers Care Acetylene Plant Operator Name Role Phone Unavailable Primary Care Provider Unavailabl e Encounter Details Date Type Department Care Team (Late st Contact Info) Description 12/24/2016 Orders Only ANY CONVERSION ONE [place], [place] [id number] , Generic Conversion, Social History Tobacco Use [...] GLUCOSE - MCCORMICK DOCKED DEVICE Routine 12/24/2016 11:59 AM CDT documented in this encounter Results * (ABNORMAL) POCT glucose (12/24/2016 11:59 AM CDT) GLUCOSE POC 164(H) 70 - 109 12/24/2016 12:28 PM CDT [facility] ORDERS INTERFACE WHOLE BLOOD SPECIMEN / Unknown 12/24/2016 11:59 AM CDT 12/24/2016 12:28 PM CDT us Generic Conversion Md PASTRANA POCT ORDERABLES - DEVIC E Final Result [facility] ORDERS INTERFACE US documented in this encounter Visit Diagnoses Not on filedocumented in this encounter
--- OUTSIDE RECORDS SUMMARY | 2024-05-10 18:10 | XMS_ITS | Encounter Summary ---
Author Organization [facility] Address [address] [place] [address]. [place] [address] [place] [address] Care Team Providers Care Corduroy Cutting Supervisor Name Role Phone Unavailable Primary Care Provider Unavailabl e Encounter Details Date Type Department Care Team (Late st Contact Info) Description 12/22/2016 Orders [place] [address] , Generic Conversion, Social History Tobacco Use [...] GLUCOSE - MCCORMICK DOCKED DEVICE Routine 12/22/2016 4:37 AM CDT documented in this encounter Results * (ABNORMAL) POCT glucose (12/22/2016 4:37 AM CDT) GLUCOSE POC 297(H) 70 - 109 12/22/2016 3:39 AM CDT [facility] ORDERS INTERFACE WHOLE BLOOD SPECIMEN / Unknown 12/22/2016 4:37 AM CDT 12/22/2016 3:39 AM CDT us Generic Conversion Md PASTRANA POCT ORDERABLES - DEVIC E Final Result [facility] ORDERS INTERFACE US documented in this encounter Visit Diagnoses Not on filedocumented in this encounter
--- OUTSIDE RECORDS SUMMARY | 2024-05-10 18:10 | XMS_ITS | Encounter Summary ---
Author Organization [facility] Address [address] [place] [address]. [place] [address] [place] [address] Care Team Providers Care Peer Educator Name Role Phone Unavailable Primary Care Provider Unavailabl e Encounter Details Date Type Department Care Team (Late st Contact Info) Description 12/23/2016 Orders Only ANY CONVERSION ONE [place], [place] [id number] , Generic Conversion, Social History Tobacco Use [...] GLUCOSE - MCCORMICK DOCKED DEVICE Routine 12/23/2016 10:32 PM CDT documented in this encounter Results * (ABNORMAL) POCT glucose (12/23/2016 10:32 PM CDT) GLUCOSE POC 141(H) 70 - 109 12/24/2016 12:21 AM CDT [facility] ORDERS INTERFACE WHOLE BLOOD SPECIMEN / Unknown 12/23/2016 10:32 PM CDT 12/24/2016 12:21 AM CDT us Generic Conversion Md PASTRANA POCT ORDERABLES - DEVIC E Final Result [facility] ORDERS INTERFACE US documented in this encounter Visit Diagnoses Not on filedocumented in this encounter
--- OUTSIDE RECORDS SUMMARY | 2024-05-10 18:10 | XMS_ITS | Encounter Summary ---
Author Organization [facility] Address [address] [place] [address]. [place] [address] [place] [address] Care Team Providers Care Magisterial District Judge Name Role Phone Unavailable Primary Care Provider Unavailabl e Encounter Details Date Type Department Care Team (Late st Contact Info) Description 12/24/2016 Orders Only [place] [address] , Generic Conversion, Social History [...] Diagnosis Comments BASIC METABOLIC PANEL TIMED 12/24/2016 1:29 PM CDT documented in this encounter Results * (ABNORMAL) BASIC METABOLIC PANEL (12/24/2016 1:29 PM CDT) SODIUM S/P/B 137 135 - 147 MMOL/L 12/24/2016 1:28 PM CDT [facility] POTASSIUM S/P/B 3.5 3.5 - 5.0 MMOL/L 12/24/2016 1:28 PM CDT [facility] Comment:SLIGHT HEMOLYSIS, RE SULT MAY BE AFFECTED. CHLORIDE S/P/B 107 98 - 107 MMOL/L 12/24/2016 1:28 PM CDT [facility] CO2 21.7(L) 22 - 29 MMOL/L 12/24/2016 1:28 PM CDT [facility] GLUCOSE 110(H) 70 - 109 MG/DL 12/24/2016 1:28 PM CDT [facility] BUN 4(L) 7 - 19 MG/DL 12/24/2016 1:28 PM CDT [facility] CREATININE S/P/B 0.55(L) 0.60 - 1.10 MG/DL 12/24/2016 1:28 PM CDT [facility] CALCIUM S/P/B 8.4 8.4 - 10.2 MG/DL 12/24/2016 1:28 PM CDT [facility] EGFR NON-AFR. AMER. 141 >60 ML/MIN/1.7 3 M2 12/24/2016 1:28 PM CDT [facility] EGFR AFR. AMER. 171 >60 ML/MIN/1.7 3 M2 12/24/2016 1:28 PM CDT [facility] ANION GAP 8.3 MMOL/L 12/24/2016 1:28 PM CDT [facility] OSMOLALITY (CALC) 271 MOSM/KG 12/24/2016 1:28 PM CDT [facility] PLASMA SPECIMEN / Unknown 12/24/2016 1:29 PM CDT 12/24/2016 12:30 PM CDT us Generic Conversion Md [facility] Final R esult [facility] [address] [place] [address], [id number] documented in this encounter Visit Diagnoses Not on filedocumented in this encounter
--- OUTSIDE RECORDS SUMMARY | 2024-05-10 18:10 | XMS_ITS | Encounter Summary ---
Author Organization [facility] Address [address] [place] [address]. [place] [address] [place] [address] Care Team Providers Care Despatching And Receiving Clerk Name Role Phone Unavailable Primary Care Provider Unavailabl e Encounter Details Date Type Department Care Team (Late st Contact Info) Description 12/23/2016 Orders Only [place] [address] , Generic Conversion, Social History [...] Date/Time Associated Diagnosis Comments BASIC METABOLIC PANEL Nurse Collected Priority 12/23/2016 1:00 PM CDT documented in this encounter Results * (ABNORMAL) BASIC METABOLIC PANEL (12/23/2016 1:00 PM CDT) SODIUM S/P/B 135 135 - 147 MMOL/L 12/23/2016 12:54 PM CDT [facility] POTASSIUM S/P/B 4.3 3.5 - 5.0 MMOL/L 12/23/2016 12:54 PM CDT [facility] CHLORIDE S/P/B 106 98 - 107 MMOL/L 12/23/2016 12:54 PM CDT [facility] CO2 15.1(L) 22 - 29 MMOL/L 12/23/2016 12:54 PM CDT [facility] GLUCOSE 219(H) 70 - 109 MG/DL 12/23/2016 12:54 PM CDT [facility] BUN 3(L) 7 - 19 MG/DL 12/23/2016 12:54 PM CDT [facility] CREATININE S/P/B 0.58(L) 0.60 - 1.10 MG/DL 12/23/2016 12:54 PM CDT [facility] CALCIUM S/P/B 8.6 8.4 - 10.2 MG/DL 12/23/2016 12:54 PM CDT [facility] EGFR NON-AFR. AMER. 133 >60 ML/MIN/1.7 3 M2 12/23/2016 12:54 PM CDT [facility] EGFR AFR. AMER. 161 >60 ML/MIN/1.7 3 M2 12/23/2016 12:54 PM CDT [facility] ANION GAP 13.9 MMOL/L 12/23/2016 12:54 PM CDT [facility] OSMOLALITY (CALC) 273 MOSM/KG 12/23/2016 12:54 PM CDT [facility] PLASMA SPECIMEN / Unknown 12/23/2016 1:00 PM CDT 12/23/2016 12:20 PM CDT us Generic Conversion Md [facility] Final R esult [facility] [address] [place] [address], [id number] documented in this encounter Visit Diagnoses Not on filedocumented in this encounter
--- OUTSIDE RECORDS SUMMARY | 2024-05-10 18:10 | XMS_ITS | Encounter Summary ---
Author Organization [facility] Address [address] [place] [address]. [place] [address] [place] [address] Care Team Providers Care Neurology Professor Name Role Phone Unavailable Primary Care Provider Unavailabl e Encounter Details Date Type Department Care Team (Late st Contact Info) Description 12/24/2016 Orders Only ANY [place] [address] , Generic Conversion, Social History [...] Associated Diagnosis Comments CBC W/DIFF AUTOMATED Routine 12/24/2016 1:20 AM CDT documented in this encounter Results * (ABNORMAL) CBC W/DIFF AUTOMATED (12/24/2016 1:20 AM CDT) WBC 7.7 4.0 - 10.8 x10'3/uL 12/24/2016 12:51 AM CDT [facility] RBC 4.85 4.10 - 5.40 x10'6/uL 12/24/2016 12:51 AM CDT [facility] HGB 14.7 12.0 - 16.0 G/DL 12/24/2016 12:51 AM CDT [facility] HCT 40.8 36.0 - 47.0 % 12/24/2016 12:51 AM CDT [facility] MCV 84.1 78.0 - 100.0 FL 12/24/2016 12:51 AM CDT [facility] MCH 30.3 27.0 - 31.0 PG 12/24/2016 12:51 AM CDT [facility] MCHC 36.0 33.0 - 36.0 G/DL 12/24/2016 12:51 AM CDT [facility] RDW 14.7(H) 11.5 - 14.5 % 12/24/2016 12:51 AM CDT [facility] PLT 328 150 - 350 x10'3/uL 12/24/2016 12:51 AM CDT [facility] MPV 8.8 7.4 - 10.4 FL 12/24/2016 12:51 AM CDT [facility] ABS. NEUTROPHILS TOTAL 5.10 1.60 - 8.30 x10'3/uL 12/24/2016 12:51 AM CDT [facility] ABS. LYMPHOCYTES 1.61 0.80 - 4.70 x10'3/uL 12/24/2016 12:51 AM CDT [facility] ABS. MONOCYTES 0.88 0.00 - 1.50 x10'3/uL 12/24/2016 12:51 AM CDT [facility] ABS. EOSINOPHILS 0.01 0.00 - 0.40 x10'3/uL 12/24/2016 12:51 AM CDT [facility] ABS. BASOPHILS 0.03 0.00 - 0.20 x10'3/uL 12/24/2016 12:51 AM CDT [facility] ABS. IMMATURE GRANULOCYTES 0.04(H) 0.00 - 0.03 x10'3/uL 12/24/2016 12:51 AM CDT [facility] ABS. NUCLEATED RBC'S 0.00 0.0 x10'3/uL 12/24/2016 12:51 AM CDT [facility] PLASMA SPECIMEN / Unknown 12/24/2016 1:20 AM CDT 12/24/2016 12:27 AM CDT us Generic Conversion Md [facility] Final R esult Performing Organization Address City/State/[facility] Co de Phone Number [facility] [address] [place] [address], [id number] documented in this encounter Visit Diagnoses Not on filedocumented in this encounter
--- OUTSIDE RECORDS SUMMARY | 2024-05-10 18:10 | XMS_ITS | Encounter Summary ---
Author Organization [facility] Address [address] [place] [address]. [place] [address] [place] [address] Care Team Providers Care Power Generation Technician Name Role Phone Unavailable Primary Care Provider Unavailabl e Encounter Details Date Type Department Care Team (Late st Contact Info) Description 12/22/2016 Orders [place] [address] , Generic Conversion, Social History [...] Diagnosis Comments BASIC METABOLIC PANEL TIMED 12/22/2016 12:00 PM CDT documented in this encounter Results * (ABNORMAL) BASIC METABOLIC PANEL (12/22/2016 12:00 PM CDT) SODIUM S/P/B 136 135 - 147 MMOL/L 12/22/2016 12:42 PM CDT [facility] POTASSIUM S/P/B 3.9 3.5 - 5.0 MMOL/L 12/22/2016 12:42 PM CDT [facility] Comment:SLIGHT HEMOLYSIS, RE SULT MAY BE AFFECTED. CHLORIDE S/P/B 111(H) 98 - 107 MMOL/L 12/22/2016 12:42 PM CDT [facility] CO2 13.3(L) 22 - 29 MMOL/L 12/22/2016 12:42 PM CDT [facility] GLUCOSE 149(H) 70 - 109 MG/DL 12/22/2016 12:42 PM CDT [facility] BUN 7 7 - 19 MG/DL 12/22/2016 12:42 PM CDT [facility] CREATININE S/P/B 0.70 0.60 - 1.10 MG/DL 12/22/2016 12:42 PM CDT [facility] CALCIUM S/P/B 7.9(L) 8.4 - 10.2 MG/DL 12/22/2016 12:42 PM CDT [facility] EGFR NON-AFR. AMER. 107 >60 ML/MIN/1.7 3 M2 12/22/2016 12:42 PM CDT [facility] EGFR AFR. AMER. 129 >60 ML/MIN/1.7 3 M2 12/22/2016 12:42 PM CDT [facility] ANION GAP 11.7 MMOL/L 12/22/2016 12:42 PM CDT [facility] OSMOLALITY (CALC) 273 MOSM/KG 12/22/2016 12:42 PM CDT [facility] PLASMA SPECIMEN / Unknown 12/22/2016 12:00 PM CDT 12/22/2016 12:01 PM CDT us Generic Conversion Md [facility] Final R esult [facility] [address] [place] [address], [id number] documented in this encounter Visit Diagnoses Not on filedocumented in this encounter
--- OUTSIDE RECORDS SUMMARY | 2024-05-10 18:10 | XMS_ITS | Encounter Summary ---
Author Organization [facility] Address [address] [place] [address]. [place] [address] [place] [address] Care Team Providers Care Inventory Worker Name Role Phone Unavailable Primary Care Provider Unavailabl e Encounter Details Date Type Department Care Team (Late st Contact Info) Description 12/22/2016 [place] [address] , Generic Conversion, Social History [...] Diagnosis Comments BASIC METABOLIC PANEL Routine 12/22/2016 4:20 AM CDT documented in this encounter Results * (ABNORMAL) BASIC METABOLIC PANEL (12/22/2016 4:20 AM CDT) SODIUM S/P/B 133(L) 135 - 147 MMOL/L 12/23/2016 10:40 AM CDT [facility] POTASSIUM S/P/B 5.6(H) 3.5 - 5.0 MMOL/L 12/23/2016 10:40 AM CDT [facility] CHLORIDE S/P/B 105 98 - 107 MMOL/L 12/23/2016 10:40 AM CDT [facility] CO2 5.3(LL) 22 - 29 MMOL/L 12/23/2016 10:40 AM CDT [facility] Comment:Critical results bety led to and read back by [email or web address]. WW GLUCOSE 417(H) 70 - 109 MG/DL 12/23/2016 10:40 AM CDT [facility] BUN 13 7 - 19 MG/DL 12/23/2016 10:40 AM CDT [facility] CREATININE S/P/B 1.09 0.60 - 1.10 MG/DL 12/23/2016 10:40 AM CDT [facility] CALCIUM S/P/B 9.3 8.4 - 10.2 MG/DL 12/23/2016 10:40 AM CDT [facility] EGFR NON-AFR. AMER. 64 >60 ML/MIN/1.7 3 M2 12/23/2016 10:40 AM CDT [facility] EGFR AFR. AMER. 78 >60 ML/MIN/1.7 3 M2 12/23/2016 10:40 AM CDT [facility] ANION GAP 22.7 MMOL/L 12/23/2016 10:40 AM CDT [facility] OSMOLALITY (CALC) 284 MOSM/KG 12/23/2016 10:40 AM CDT [facility] PLASMA SPECIMEN / Unknown 12/22/2016 4:20 AM CDT 12/22/2016 3:22 AM CDT us Generic Conversion Md [facility] Final R esult [facility] [address] [place] [address], [id number] documented in this encounter Visit Diagnoses Not on filedocumented in this encounter
--- OUTSIDE RECORDS SUMMARY | 2024-05-10 18:11 | XMS_ITS | Encounter Summary ---
Author Organization [facility] Address [address] [place] [address]. [place] [address] [place] [address] Care Team Providers Care Security Monitor Name Role Phone Unavailable Primary Care Provider Unavailabl e Encounter Details Date Type Department Care Team (Late st Contact Info) Description 12/21/2016 Orders [place] [address] , Generic Conversion, Social History [...] Priority Date/Time Associated Diagnosis Comments URINALYSIS TIMED 12/21/2016 11:05 PM CDT documented in this encounter Results * (ABNORMAL) URINALYSIS (12/21/2016 11:05 PM CDT) COLOR (U) YELLOW 12/21/2016 10:27 PM CDT [facility] TRANSPARENCY HAZY 12/21/2016 10:27 PM CDT [facility] SPECIFIC GRAVITY (U) 1.024 1.002 - 1.035 12/21/2016 10:27 PM CDT [facility] U PH 5.0 5 - 8 12/21/2016 10:27 PM CDT [facility] PROTEIN (U) 100(A) NEGATIVE 12/21/2016 10:27 PM CDT [facility] URINE GLUCOSE >=500(A) NEGATIVE MG/DL 12/21/2016 10:27 PM CDT [facility] KETONES MG/DL (U) 80(A) NEGATIVE 12/21/2016 10:27 PM CDT [facility] BILIRUBIN (U) NEGATIVE NEGATIVE 12/21/2016 10:27 PM CDT [facility] BLOOD (U) LARGE(A) NEGATIVE 12/21/2016 10:27 PM CDT [facility] NITRITES NEGATIVE NEGATIVE 12/21/2016 10:27 PM CDT [facility] UROBILINOGEN NORMAL 0 - 1 EU/DL 12/21/2016 10:27 PM CDT [facility] LEUKOCYTES (U) MODERATE(A) NEGATIVE 7 10:27 PM CDT [facility] RBC/HPF >182 /HPF 12/21/2016 10:27 PM CDT [facility] Comment:PLEASE CALL THE LAB WITHIN 2 HOURS IF ACTUAL NUMBER OF CELLS IS REQUIRED. WBC/HPF 43 /HPF 12/21/2016 10:27 PM CDT [facility] BACTERIA (U) NONE /HPF 12/21/2016 10:27 PM CDT [facility] SQUAMOUS EPITHELIALS 3 12/21/2016 10:27 PM CDT [facility] URINE SPECIMEN / Unknown 12/21/2016 11:05 PM CDT 12/21/2016 10:13 PM CDT us Generic Conversion Md [facility] URINE ORDERABLES Final Result [facility] [address] [place] [address], [place] [phone] [id number] documented in this encounter Visit Diagnoses Not on filedocumented in this encounter
--- OUTSIDE RECORDS SUMMARY | 2024-05-10 18:11 | XMS_ITS | Encounter Summary ---
Author Organization [facility] Address [address] [place] [address]. [place] [address] [place] [address] Care Team Providers Care Carpenter'S Helper Name Role Phone Unavailable Primary Care Provider Unavailabl e Encounter Details Date Type Department Care Team (Late st Contact Info) Description 10/13/2016 Orders [place] [address] , Generic Conversion, Social History Tobacco Use [...] POCT GLUCOSE - MCCORMICK DOCKED DEVICE Routine 10/13/2016 3:17 AM CDT documented in this encounter Results * (ABNORMAL) POCT glucose (10/13/2016 3:17 AM CDT) GLUCOSE POC 129(H) 70 - 109 10/15/2016 10:34 AM CDT [facility] ORDERS INTERFACE WHOLE BLOOD SPECIMEN / Unknown 10/13/2016 3:17 AM CDT 10/15/2016 10:34 AM CDT us Generic Conversion Md [facility] POCT ORDERABLES - DEVIC E Final Result [facility] ORDERS INTERFACE US documented in this encounter Visit Diagnoses Not on filedocumented in this encounter
--- OUTSIDE RECORDS SUMMARY | 2024-05-10 18:11 | XMS_ITS | Encounter Summary ---
Author Organization [facility] Address [address] [place] [address]. [place] [address] [place] [address] Care Team Providers Care Kiln Tester Name Role Phone Unavailable Primary Care Provider Unavailabl e Encounter Details Date Type Department Care Team (Late st Contact Info) Description 10/12/2016 Orders [place] [address] , Generic Conversion, Social History Tobacco Use [...] POCT GLUCOSE - MCCORMICK DOCKED DEVICE Routine 10/12/2016 5:59 AM CDT documented in this encounter Results * (ABNORMAL) POCT glucose (10/12/2016 5:59 AM CDT) GLUCOSE POC 134(H) 70 - 109 10/12/2016 5:03 AM CDT [facility] ORDERS INTERFACE Comment:RN Notified WHOLE BLOOD SPECIMEN / Unknown 10/12/2016 5:59 AM CDT 10/12/2016 5:03 AM CDT us Generic Conversion Md [facility] POCT ORDERABLES - DEVIC E Final Result [facility] ORDERS INTERFACE US documented in this encounter Visit Diagnoses Not on filedocumented in this encounter
--- OUTSIDE RECORDS SUMMARY | 2024-05-10 18:11 | XMS_ITS | Encounter Summary ---
Author Organization [facility] Address [address] [place] [address]. [place] [address] [place] [address] Care Team Providers Care Mobile Heavy Equipment Mechanic Name Role Phone Unavailable Primary Care Provider Unavailabl e Encounter Details Date Type Department Care Team (Late st Contact Info) Description 10/13/2016 Orders [place] [address] , Generic Conversion, Social History Tobacco Use [...] GLUCOSE - MCCORMICK DOCKED DEVICE Routine 10/13/2016 2:35 PM CDT documented in this encounter Results * (ABNORMAL) POCT glucose (10/13/2016 2:35 PM CDT) GLUCOSE POC 159(H) 70 - 109 10/13/2016 1:37 PM CDT [facility] ORDERS INTERFACE WHOLE BLOOD SPECIMEN / Unknown 10/13/2016 2:35 PM CDT 10/13/2016 1:37 PM CDT us Generic Conversion Md [facility] POCT ORDERABLES - DEVIC E Final Result [facility] ORDERS INTERFACE US documented in this encounter Visit Diagnoses Not on filedocumented in this encounter
--- OUTSIDE RECORDS SUMMARY | 2024-05-10 18:11 | XMS_ITS | Encounter Summary ---
Author Organization [facility] Address [address] [place] [address]. [place] [address] [place] [address] Care Team Providers Care Filterer Name Role Phone Unavailable Primary Care Provider Unavailabl e Encounter Details Date Type Department Care Team (Late st Contact Info) Description 12/21/2016 Orders [place] [address] , Generic Conversion, Social History [...] Associated Diagnosis Comments CBC W/DIFF AUTOMATED STAT 12/21/2016 7:29 PM CDT documented in this encounter Results * (ABNORMAL) CBC W/DIFF AUTOMATED (12/21/2016 7:29 PM CDT) WBC 8.5 4.0 - 10.8 x10'3/uL 12/21/2016 6:46 PM CDT [facility] RBC 5.10 4.10 - 5.40 x10'6/uL 12/21/2016 6:46 PM CDT [facility] HGB 14.9 12.0 - 16.0 G/DL 12/21/2016 6:46 PM CDT [facility] HCT 43.0 36.0 - 47.0 % 12/21/2016 6:46 PM CDT [facility] MCV 84.3 78.0 - 100.0 FL 12/21/2016 6:46 PM CDT [facility] MCH 29.2 27.0 - 31.0 PG 12/21/2016 6:46 PM CDT [facility] MCHC 34.7 33.0 - 36.0 G/DL 12/21/2016 6:46 PM CDT [facility] RDW 14.5 11.5 - 14.5 % 12/21/2016 6:46 PM CDT [facility] PLT 420(H) 150 - 350 x10'3/uL 12/21/2016 6:46 PM CDT [facility] MPV 8.8 7.4 - 10.4 FL 12/21/2016 6:46 PM CDT [facility] ABS. NEUTROPHILS TOTAL 5.10 1.60 - 8.30 x10'3/uL 12/21/2016 6:46 PM CDT [facility] ABS. LYMPHOCYTES 2.36 0.80 - 4.70 x10'3/uL 12/21/2016 6:46 PM CDT [facility] ABS. MONOCYTES 0.91 0.00 - 1.50 x10'3/uL 12/21/2016 6:46 PM CDT [facility] ABS. EOSINOPHILS 0.00 0.00 - 0.40 x10'3/uL 12/21/2016 6:46 PM CDT [facility] ABS. BASOPHILS 0.03 0.00 - 0.20 x10'3/uL 12/21/2016 6:46 PM CDT [facility] ABS. IMMATURE GRANULOCYTES 0.08(H) 0.00 - 0.03 x10'3/uL 12/21/2016 6:46 PM CDT [facility] ABS. NUCLEATED RBC'S 0.00 0.0 x10'3/uL 12/21/2016 6:46 PM CDT [facility] PLASMA SPECIMEN / Unknown 12/21/2016 7:29 PM CDT 12/21/2016 6:32 PM CDT us Generic Conversion Md [facility] Final R esult Performing Organization Address City/State/[facility] Co de Phone Number [facility] [address] [place] [address], [id number] documented in this encounter Visit Diagnoses Not on filedocumented in this encounter
--- OUTSIDE RECORDS SUMMARY | 2024-05-10 18:11 | XMS_ITS | Encounter Summary ---
Author Organization [facility] Address [address] [place] [address]. [place] [address] [place] [address] Care Team Providers Care Staffing Rn Name Role Phone Unavailable Primary Care Provider Unavailabl e Encounter Details Date Type Department Care Team (Late st Contact Info) Description 10/13/2016 Orders [place] [address] , Generic Conversion, Social History Tobacco Use [...] GLUCOSE - MCCORMICK DOCKED DEVICE Routine 10/13/2016 9:42 AM CDT documented in this encounter Results * (ABNORMAL) POCT glucose (10/13/2016 9:42 AM CDT) GLUCOSE POC 161(H) 70 - 109 10/13/2016 8:46 AM CDT [facility] ORDERS INTERFACE WHOLE BLOOD SPECIMEN / Unknown 10/13/2016 9:42 AM CDT 10/13/2016 8:46 AM CDT us Generic Conversion Md [facility] POCT ORDERABLES - DEVIC E Final Result [facility] ORDERS INTERFACE US documented in this encounter Visit Diagnoses Not on filedocumented in this encounter
--- OUTSIDE RECORDS SUMMARY | 2024-05-10 18:11 | XMS_ITS | Encounter Summary ---
Author Organization [facility] Address [address] [place] [address]. [place] [address] [place] [address] Care Team Providers Care Trauma Director Name Role Phone Unavailable Primary Care Provider Unavailabl e Encounter Details Date Type Department Care Team (Late st Contact Info) Description 10/13/2016 Orders [place] [address] , Generic Conversion, Social History Tobacco Use [...] GLUCOSE - MCCORMICK DOCKED DEVICE Routine 10/13/2016 7:42 PM CDT documented in this encounter Results * POCT glucose (10/13/2016 7:42 PM CDT) GLUCOSE POC 105 70 - 109 10/13/2016 7:00 PM CDT [facility] ORDERS INTERFACE WHOLE BLOOD SPECIMEN / Unknown 10/13/2016 7:42 PM CDT 10/13/2016 7:00 PM CDT us Generic Conversion Md [facility] POCT ORDERABLES - DEVIC E Final Result [facility] ORDERS INTERFACE US documented in this encounter Visit Diagnoses Not on filedocumented in this encounter
--- OUTSIDE RECORDS SUMMARY | 2024-05-10 18:11 | XMS_ITS | Encounter Summary ---
Author Organization [facility] Address [address] [place] [address]. [place] [address] [place] [address] Care Team Providers Care Manager Gallery Name Role Phone Unavailable Primary Care Provider Unavailabl e Encounter Details Date Type Department Care Team (Late st Contact Info) Description 10/12/2016 Orders Only ANY CONVERSION ONE [place], [place] [id number] , Generic Conversion, Social History Tobacco Use [...] GLUCOSE - MCCORMICK DOCKED DEVICE Routine 10/12/2016 11:56 PM CDT documented in this encounter Results * POCT glucose (10/12/2016 11:56 PM CDT) GLUCOSE POC 81 70 - 109 10/12/2016 10:58 PM CDT [facility] ORDERS INTERFACE WHOLE BLOOD SPECIMEN / Unknown 10/12/2016 11:56 PM CDT 10/12/2016 10:58 PM CDT us Generic Conversion Md [facility] POCT ORDERABLES - DEVIC E Final Result [facility] ORDERS INTERFACE US documented in this encounter Visit Diagnoses Not on filedocumented in this encounter
--- OUTSIDE RECORDS SUMMARY | 2024-05-10 18:11 | XMS_ITS | Encounter Summary ---
Author Organization [facility] Address [address] [place] [address]. [place] [address] [place] [address] Care Team Providers Care On Call Pharmacy Technician Name Role Phone Unavailable Primary Care Provider Unavailabl e Encounter Details Date Type Department Care Team (Latest Contact Info) Description 10/14/2016 Abstract [facility] Social History Tobacco [...]
--- OUTSIDE RECORDS SUMMARY | 2024-05-10 18:11 | XMS_ITS | Encounter Summary ---
Author Organization [facility] Address [address] [place] [address]. [place] [address] [place] [address] Care Team Providers Care Etl Application Developer Name Role Phone Unavailable Primary Care Provider Unavailabl e Encounter Details Date Type Department Care Team (Late st Contact Info) Description 12/21/2016 Orders [place] [address] , Generic Conversion, Social History [...] Associated Diagnosis Comments BLOOD GAS, VENOUS STAT 12/21/2016 7:3 1 PM CDT documented in this encounter Results * (ABNORMAL) Blood gas, venous (12/21/2016 7:31 PM CDT) PH VENOUS 7.32 7.32 - 7.42 12/21/2016 6:57 PM CDT [facility] PCO2 40.9(L) 41 - 51 MMHG 12/21/2016 6:57 PM CDT [facility] PO2 VENOUS 34.5 25 - 40 MM HG 12/21/2016 6:57 PM CDT [facility] BICARB VENOUS 20.6(L) 24 - 28 MMOL/L 12/21/2016 6:57 PM CDT [facility] TCO2 21.9(L) 25 - 40 MMOL/L 12/21/2016 6:57 PM CDT [facility] BASE DEFICIT VENOUS 4.7(H) 0 - 2 MMOL/L 12/21/2016 6:57 PM CDT [facility] CARBONIC ACID VENOUS 1.3 MMOL/L 12/21/2016 6:57 PM CDT [facility] LITER FLOW ROOM AIR L/M 12/21/2016 6:57 PM CDT [facility] 12/21/2016 7:31 PM CDT 12/21/2016 6:32 PM CDT us Generic Conversion Md [facility] Final R esult [facility] [address] [place] [address], [id number] documented in this encounter Visit Diagnoses Not on filedocumented in this encounter
--- OUTSIDE RECORDS SUMMARY | 2024-05-10 18:11 | XMS_ITS | Encounter Summary ---
Author Organization [facility] - [facility] Address [address] [place] [address]. [place] [address] [place] [address] Care Team Providers Care Cot Assembler Name Role Phone Unavailable Primary Care Provider Unavailabl e Encounter Details Date Type Department Care Team (Late st Contact Info) Description 10/13/2016 Orders [place] [address] , Generic Conversion, Social History Tobacco Use [...] GLUCOSE - MCCORMICK DOCKED DEVICE Routine 10/13/2016 5:58 AM CDT documented in this encounter Results * (ABNORMAL) POCT glucose (10/13/2016 5:58 AM CDT) GLUCOSE POC 122(H) 70 - 109 10/13/2016 5:09 AM CDT [facility] ORDERS INTERFACE WHOLE BLOOD SPECIMEN / Unknown 10/13/2016 5:58 AM CDT 10/13/2016 5:09 AM CDT us Generic Conversion Md [facility] POCT ORDERABLES - DEVIC E Final Result [facility] ORDERS INTERFACE US documented in this encounter Visit Diagnoses Not on filedocumented in this encounter
--- OUTSIDE RECORDS SUMMARY | 2024-05-10 18:11 | XMS_ITS | Encounter Summary ---
Author Organization [facility] Address [address] [place] [address]. [place] [address] [place] [address] Care Team Providers Care Cafe Team Member Name Role Phone Unavailable Primary Care Provider Unavailabl e Encounter Details Date Type Department Care Team (Late st Contact Info) Description 12/21/2016 Orders Only ANY CONVERSION ONE [place], [place] [id number] , Generic Conversion, Social History Tobacco Use [...] POCT GLUCOSE - MCCORMICK DOCKED DEVICE Routine 12/21/2016 11:59 PM CDT documented in this encounter Results * (ABNORMAL) POCT glucose (12/21/2016 11:59 PM CDT) GLUCOSE POC 176(H) 70 - 109 12/21/2016 11:01 PM CDT [facility] ORDERS INTERFACE WHOLE BLOOD SPECIMEN / Unknown 12/21/2016 11:59 PM CDT 12/21/2016 11:01 PM CDT us Generic Conversion Md PASTRANA POCT ORDERABLES - DEVIC E Final Result [facility] ORDERS INTERFACE US documented in this encounter Visit Diagnoses Not on filedocumented in this encounter
--- OUTSIDE RECORDS SUMMARY | 2024-05-10 18:11 | XMS_ITS | Encounter Summary ---
Author Organization [facility] Address [address] [place] [address]. [place] [address] [place] [address] Care Team Providers Care Assurance Senior Name Role Phone Unavailable Primary Care Provider Unavailabl e Encounter Details Date Type Department Care Team (Late st Contact Info) Description 12/21/2016 Orders Only [place] [address] , Generic Conversion, Social History [...] Associated Diagnosis Comments BASIC METABOLIC PANEL STAT 12/21/2016 7:29 PM CDT documented in this encounter Results * (ABNORMAL) BASIC METABOLIC PANEL (12/21/2016 7:29 PM CDT) SODIUM S/P/B 139 135 - 147 MMOL/L 12/21/2016 7:04 PM CDT [facility] POTASSIUM S/P/B 3.0(L) 3.5 - 5.0 MMOL/L 12/21/2016 7:04 PM CDT [facility] CHLORIDE S/P/B 103 98 - 107 MMOL/L 12/21/2016 7:04 PM CDT [facility] CALCIUM S/P/B 10.0 8.4 - 10.2 MG/DL 12/21/2016 7:04 PM CDT [facility] CO2 14.7(L) 22 - 29 MMOL/L 12/21/2016 7:04 PM CDT [facility] GLUCOSE 81 70 - 109 MG/DL 12/21/2016 7:04 PM CDT [facility] BUN 17 7 - 19 MG/DL 12/21/2016 7:04 PM CDT [facility] CREATININE S/P/B 0.81 0.60 - 1.10 MG/DL 12/21/2016 7:04 PM CDT [facility] OSMOLALITY (CALC) 278 12/21/2016 7:04 PM CDT [facility] ANION GAP 21 MMOL/L 12/21/2016 7:04 PM CDT [facility] PLASMA SPECIMEN / Unknown 12/21/2016 7:29 PM CDT 12/21/2016 6:32 PM CDT us Generic Conversion Md [facility] Final R esult [facility] [address] [place] [address], [id number] documented in this encounter Visit Diagnoses Not on filedocumented in this encounter
--- OUTSIDE RECORDS SUMMARY | 2024-05-10 18:11 | XMS_ITS | Encounter Summary ---
Author Organization [facility] Address [address] [place] [address]. [place] [address] [place] [address] Care Team Providers Care Control Room Tender Name Role Phone Unavailable Primary Care Provider Unavailabl e Encounter Details Date Type Department Care Team (Late st Contact Info) Description 10/12/2016 Orders Only ANY CONVERSION ONE [place], [place] [id number] , Generic Conversion, Social History Tobacco Use [...] GLUCOSE - MCCORMICK DOCKED DEVICE Routine 10/12/2016 12:15 PM CDT documented in this encounter Results * (ABNORMAL) POCT glucose (10/12/2016 12:15 PM CDT) GLUCOSE POC 111(H) 70 - 109 10/12/2016 11:40 AM CDT [facility] ORDERS INTERFACE WHOLE BLOOD SPECIMEN / Unknown 10/12/2016 12:15 PM CDT 10/12/2016 11:40 AM CDT us Generic Conversion Md PASTRANA POCT ORDERABLES - DEVIC E Final Result [facility] ORDERS INTERFACE US documented in this encounter Visit Diagnoses Not on filedocumented in this encounter
--- OUTSIDE RECORDS SUMMARY | 2024-05-10 18:11 | XMS_ITS | Encounter Summary ---
Author Organization [facility] Address [address] [place] [address]. [place] [address] [place] [address] Care Team Providers Care Communications Controller Name Role Phone Unavailable Primary Care Provider Unavailabl e Encounter Details Date Type Department Care Team (Late st Contact Info) Description 10/14/2016 Orders [place] [address] , Generic Conversion, Social History Tobacco Use [...] POCT GLUCOSE - MCCORMICK DOCKED DEVICE Routine 10/14/2016 2:40 PM CDT documented in this encounter Results * (ABNORMAL) POCT glucose (10/14/2016 2:40 PM CDT) GLUCOSE POC 129(H) 70 - 109 10/14/2016 1:42 PM CDT [facility] ORDERS INTERFACE Comment:RN Notified WHOLE BLOOD SPECIMEN / Unknown 10/14/2016 2:40 PM CDT 10/14/2016 1:42 PM CDT us Generic Conversion Md PASTRANA POCT ORDERABLES - DEVIC E Final Result [facility] ORDERS INTERFACE US documented in this encounter Visit Diagnoses Not on filedocumented in this encounter
--- OUTSIDE RECORDS SUMMARY | 2024-05-10 18:11 | XMS_ITS | Encounter Summary ---
Author Organization [facility] - [facility] Address [address] [place] [address]. [place] [address] [place] [address] Care Team Providers Care Holistic Nutritionist Name Role Phone Unavailable Primary Care Provider Unavailabl e Encounter Details Date Type Department Care Team (Late st Contact Info) Description 10/12/2016 Orders [place] [address] , Generic Conversion, Social History Tobacco Use [...] GLUCOSE - MCCORMICK DOCKED DEVICE Routine 10/12/2016 9:46 AM CDT documented in this encounter Results * POCT glucose (10/12/2016 9:46 AM CDT) GLUCOSE POC 81 70 - 109 10/12/2016 9:10 AM CDT [facility] ORDERS INTERFACE WHOLE BLOOD SPECIMEN / Unknown 10/12/2016 9:46 AM CDT 10/12/2016 9:10 AM CDT us Generic Conversion Md PASTRANA POCT ORDERABLES - DEVIC E Final Result [facility] ORDERS INTERFACE US documented in this encounter Visit Diagnoses Not on filedocumented in this encounter
--- OUTSIDE RECORDS SUMMARY | 2024-05-10 18:11 | XMS_ITS | Encounter Summary ---
Author Organization [facility] Address [address] [place] [address]. [place] [address] [place] [address] Care Team Providers Care Linux System Engineer Name Role Phone Unavailable Primary Care Provider Unavailabl e Encounter Details Date Type Department Care Team (Late st Contact Info) Description 12/21/2016 Orders [place] [address] , Generic Conversion, Social History [...] Associated Diagnosis Comments HEPATIC FUNCTION PANEL STAT 12/21/2016 7:29 PM CDT documented in this encounter Results * HEPATIC FUNCTION PANEL (12/21/2016 7:29 PM CDT) TOTAL PROTEIN S/P/B 7.8 6.0 - 8.3 G/DL 12/21/2016 7:08 PM CDT [facility] ALBUMIN S/P/B 4.5 3.4 - 4.9 G/DL 12/21/2016 7:08 PM CDT [facility] BILIRUBIN TOTAL S/P/B 0.4 0.2 - 1.2 MG/DL 12/21/2016 7:08 PM CDT [facility] BILIRUBIN DIRECT S/P/B 0.2 0.0 - 0.5 MG/DL 12/21/2016 7:08 PM CDT [facility] ALKALINE PHOSPHATASE S/P/B 86 52 - 144 U/L 12/21/2016 7:08 PM CDT [facility] AST 17 5 - 35 U/L 12/21/2016 7:08 PM CDT [facility] ALT 14 0 - 55 U/L 12/21/2016 7:08 PM CDT [facility] PLASMA SPECIMEN / Unknown 12/21/2016 7:29 PM CDT 12/21/2016 6:32 PM CDT us Generic Conversion Md [facility] LAB[facility]AT[facility] Final R esult [facility] [address] [place] [address], [place] [phone] [id number] documented in this encounter Visit Diagnoses Not on filedocumented in this encounter
--- OUTSIDE RECORDS SUMMARY | 2024-05-10 18:11 | XMS_ITS | Encounter Summary ---
Author Organization [facility] Address [address] [place] [address]. [place] [address] [place] [address] Care Team Providers Care Crate Tier Name Role Phone Unavailable Primary Care Provider Unavailabl e Encounter Details Date Type Department Care Team (Late st Contact Info) Description 11/16/2016 Abstract [facility] [address] [place] [address] Ector Mayfield MD [address] [place] [address] Social History Tobacco Use Types [...] as of this encounter Visit Diagnoses Diagnosis Encounter for contraceptive management Unspecified contraceptive management documented in this encounter
--- OUTSIDE RECORDS SUMMARY | 2024-05-10 18:11 | XMS_ITS | Encounter Summary ---
Author Organization [facility] Address [address] [place] [address]. [place] [address] [place] [address] Care Team Providers Care Internet Marketing Strategist Name Role Phone Unavailable Primary Care Provider Unavailabl e Encounter Details Date Type Department Care Team (Latest Contact Info) Description 12/21/2016 Abstract [facility] , Veena Sepulveda [...] Procedure Name Priority Date/Time Associated Diagnosis Comments ECG 12-LEAD Routine 12/21/2016 7:31 PM CDT CARDIOLOGY GENERIC Routine 12/21/2016 7: 31 PM CDT documented in this encounter Results * ECG 12 lead (12/21/2016 7:31 PM CDT) 12/21/2016 7:31 PM CDT Narrative [facility] - 12/22/2016 3:16 PM CDT ?SJS-ED ? Test Date: ?2016-12-21 Pat Name: ? KARINALILIBETH FUCHS ? Department: ?? 70 ? Room: ? ICUA Gender: ? Female ? Quill Stripper: ?? [facility] : ?1995 ? Requested By: JOSE ALARCON-OSORIO Order Number: [id number] ? Reading MD: ?? Luis M Hair ? Measurements Intervals ?[place] ? Rate: ? 116 ?P: ?69 CA: ? 127 ?QRS: ?87 QRSD: ? 78 ? T: ?39 QT: ? 341 ? QTc: ?475 ? Interpretive Statements SINUS TACHYCARDIA RIGHT ATRIAL ENLARGEMENT ??[0.3mV P WAVE] LEFT ATRIAL ENLARGEMENT ??[-0.15mV P WAVE IN V1/V2] NONSPECIFIC T-WAVE ABNORMALITY Procedure Note , Generic Conversion, - 12/26/2018 SJS-ED Test Date: 2016-12-21 Pat Name: KARINA FUCHS Department: 70 Room: [facility] Gender: Female Quill Stripper: [facility] : 1995 Requested By: JOSE DE LA CRUZ Order Number: [id number] Reading MD: Luis M Hair Measurements Intervals [place] Rate: 116 P: 69 CA: 127 QRS: 87 QRSD: 78 T: 39 QT: 341 QTc: 475 Interpretive Statements SINUS TACHYCARDIA RIGHT ATRIAL ENLARGEMENT [0.3mV P WAVE] LEFT ATRIAL ENLARGEMENT [-0.15mV P WAVE IN V1/V2] NONSPECIFIC T-WAVE ABNORMALITY us Generic Conversion Md PASTRANA ECG ORDERABLES Final R esult [facility] * CARDIOLOGY GENERIC (12/21/2016 7:31 PM CDT) 12/21/2016 7:31 PM CDT 12/21/2016 7:31 PM CDT Narrative [facility] TO EPIC CONVERSION - 12/22/2016 3:17 PM CDT SJS-ED ? Test Date: ?2016-12-21 Pat Name: ? KARINA FUCHS ? Department: ?? 70 ? Room: ? ICUA Gender: ? Female ? Quill Stripper: ?? [facility]C : ?1995 ? Requested By: JOSE ALARCON-JO Order Number: [id number] ? Reading MD: ?? Luis M Hair ? Measurements Intervals ?[place] ? Rate: ? 116 ?P: ?69 CA: ? 127 ?QRS: ?87 QRSD: ? 78 ? T: ?39 QT: ? 341 ? QTc: ?475 ? Interpretive Statements SINUS TACHYCARDIA RIGHT ATRIAL ENLARGEMENT ??[0.3mV P WAVE] LEFT ATRIAL ENLARGEMENT ??[-0.15mV P WAVE IN V1/V2] NONSPECIFIC T-WAVE ABNORMALITY Procedure Note , Generic Conversion, - 02/23/2018 SJS-ED Test Date: 2016-12-21 Pat Name: KARINA FUCHS Department: 70 Room: ICUA Gender: Female Quill Stripper: [facility] : 1995 Requested By: JOSE DE LA CRUZ Order Number: [id number] Reading MD: Luis M Hair Measurements Intervals [place] Rate: 116 P: 69 CA: 127 QRS: 87 QRSD: 78 T: 39 QT: 341 QTc: 475 Interpretive Statements SINUS TACHYCARDIA RIGHT ATRIAL ENLARGEMENT [0.3mV P WAVE] LEFT ATRIAL ENLARGEMENT [-0.15mV P WAVE IN V1/V2] NONSPECIFIC T-WAVE ABNORMALITY us Generic Conversion Md [facility] Final Result [facility] TO EP[facility] CONVERSION documented in this encounter Visit Diagnoses Not on filedocumented in this encounter
--- OUTSIDE RECORDS SUMMARY | 2024-05-10 18:11 | XMS_ITS | Encounter Summary ---
Author Organization [facility] Address [address] [place] [address]. [place] [address] [place] [address] Care Team Providers Care Structural Steel Painter Name Role Phone Unavailable Primary Care Provider Unavailabl e Encounter Details Date Type Department Care Team (Late st Contact Info) Description 12/21/2016 Orders Only ANY CONVERSION ONE [place], [place] [id number] , Generic Conversion, Social History Tobacco Use [...] Priority Date/Time Associated Diagnosis Comments MAGNESIUM TIMED 12/21/2016 7:29 PM CDT documented in this encounter Results * (ABNORMAL) MAGNESIUM (12/21/2016 7:29 PM CDT) MAGNESIUM 1.5(L) 1.7 - 2.2 MG/DL 12/22/2016 12:05 AM CDT [facility] SERUM OR PLASMA SPECIMEN / Unknown 12/21/2016 7:29 PM CDT 12/21/2016 11:53 PM CDT us Generic Conversion Md [facility] Final R esult [facility] [address] [place] [address], [id number] documented in this encounter Visit Diagnoses Not on filedocumented in this encounter
--- OUTSIDE RECORDS SUMMARY | 2024-05-10 18:11 | XMS_ITS | Encounter Summary ---
Author Organization [facility] Address [address] [place] [address]. [place] [address] [place] [address] Care Team Providers Care Event Marketing Intern Name Role Phone Unavailable Primary Care Provider Unavailabl e Encounter Details Date Type Department Care Team (Late st Contact Info) Description 12/21/2016 Orders [place] [address] , Generic Conversion, Social History Tobacco Use [...] GLUCOSE - MCCORMICK DOCKED DEVICE Routine 12/21/2016 11:01 PM CDT documented in this encounter Results * (ABNORMAL) POCT glucose (12/21/2016 11:01 PM CDT) GLUCOSE POC 264(H) 70 - 109 12/22/2016 2:10 AM CDT [facility] ORDERS INTERFACE Comment:Will Repeat Test WHOLE BLOOD SPECIMEN / Unknown 12/21/2016 11:01 PM CDT 12/22/2016 2:10 AM CDT us Generic Conversion Md PASTRANA POCT ORDERABLES - DEVIC E Final Result [facility] ORDERS INTERFACE US documented in this encounter Visit Diagnoses Not on filedocumented in this encounter
--- OUTSIDE RECORDS SUMMARY | 2024-05-10 18:11 | XMS_ITS | Encounter Summary ---
Author Organization [facility] Address [address] [place] [address]. [place] [address] [place] [address] Care Team Providers Care Printing Specialist Name Role Phone Unavailable Primary Care Provider Unavailabl e Encounter Details Date Type Department Care Team (Late st Contact Info) Description 12/21/2016 Orders Only ANY CONVERSION ONE [place], [place] [id number] , Generic Conversion, Social History Tobacco Use [...] Priority Date/Time Associated Diagnosis Comments LIPASE STAT 12/21/2016 7:29 PM CDT documented in this encounter Results * LIPASE (12/21/2016 7:29 PM CDT) LIPASE 8 8 - 78 UNITS/L 12/21/2016 7:08 PM CDT [facility] SERUM OR PLASMA SPECIMEN / Unknown 12/21/2016 7:29 PM CDT 12/21/2016 6:32 PM CDT us Generic Conversion Md [facility] LABORAT[facility] Final R esult [facility] [address] [place] [id number], [id number] documented in this encounter Visit Diagnoses Not on filedocumented in this encounter
--- OUTSIDE RECORDS SUMMARY | 2024-05-10 18:11 | XMS_ITS | Encounter Summary ---
Author Organization [facility] Address [address] [place] [address]. [place] [address] [place] [address] Care Team Providers Care Motor Coach Driver Name Role Phone Unavailable Primary Care Provider Unavailabl e Encounter Details Date Type Department Care Team (Late st Contact Info) Description 10/14/2016 Orders [place] [address] , Generic Conversion, Social History Tobacco Use [...] GLUCOSE - MCCORMICK DOCKED DEVICE Routine 10/14/2016 11:59 AM CDT documented in this encounter Results * (ABNORMAL) POCT glucose (10/14/2016 11:59 AM CDT) GLUCOSE POC 217(H) 70 - 109 10/14/2016 11:02 AM CDT [facility] ORDERS INTERFACE Comment:RN Notified WHOLE BLOOD SPECIMEN / Unknown 10/14/2016 11:59 AM CDT 10/14/2016 11:02 AM CDT us Generic Conversion Md PASTRANA POCT ORDERABLES - DEVIC E Final Result [facility] ORDERS INTERFACE US documented in this encounter Visit Diagnoses Not on filedocumented in this encounter
--- OUTSIDE RECORDS SUMMARY | 2024-05-10 18:11 | XMS_ITS | Encounter Summary ---
Author Organization [facility] Address [address] [place] [address]. [place] [address] [place] [address] Care Team Providers Care Slot Router Name Role Phone Unavailable Primary Care Provider Unavailabl e Encounter Details Date Type Department Care Team (Late st Contact Info) Description 12/22/2016 Abstract [facility] [address] [place] [address] Aram Lainez MD [address] [place] [address] Soniya Angel MD Social History Tobacco Use Types Packs/Day [...] Diagnoses Diagnosis Type 1 diabetes mellitus with ketoacidosis and without coma ([facility]) Type I (juvenile type) diabetes mellitus with ketoacidosis, not stated as uncontrolled documented in this encounter
--- OUTSIDE RECORDS SUMMARY | 2024-05-10 18:11 | XMS_ITS | Encounter Summary ---
Author Organization [facility] - [facility] Address [address] [place] [address]. [place] [address] [place] [address] Care Team Providers Care Making Machine Operator Name Role Phone Unavailable Primary Care Provider Unavailabl e Encounter Details Date Type Department Care Team (Late st Contact Info) Description 10/12/2016 Orders [place] [address] , Generic Conversion, Social History Tobacco Use [...] GLUCOSE - MCCORMICK DOCKED DEVICE Routine 10/12/2016 4:36 PM CDT documented in this encounter Results * (ABNORMAL) POCT glucose (10/12/2016 4:36 PM CDT) GLUCOSE POC 151(H) 70 - 109 10/12/2016 5:18 PM CDT [facility] LAB ORDERS INTERFACE WHOLE BLOOD SPECIMEN / Unknown 10/12/2016 4:36 PM CDT 10/12/2016 5:18 PM CDT us Generic Conversion Md PASTRANA POCT ORDERABLES - DEVIC E Final Result [facility] LAB ORDERS INTERFACE US documented in this encounter Visit Diagnoses Not on filedocumented in this encounter
--- OUTSIDE RECORDS SUMMARY | 2024-05-10 18:11 | XMS_ITS | Encounter Summary ---
Author Organization [facility] - [facility] Address [address] [place] [address]. [place] [address] [place] [address] Care Team Providers Care Automobile Club Membership Sales Agent Name Role Phone Unavailable Primary Care Provider Unavailabl e Encounter Details Date Type Department Care Team (Late st Contact Info) Description 10/14/2016 Orders [place] [address] , Generic Conversion, Social History Tobacco Use [...] GLUCOSE - MCCORMICK DOCKED DEVICE Routine 10/14/2016 6:36 AM CDT documented in this encounter Results * (ABNORMAL) POCT glucose (10/14/2016 6:36 AM CDT) GLUCOSE POC 165(H) 70 - 109 10/14/2016 5:38 AM CDT [facility] ORDERS INTERFACE WHOLE BLOOD SPECIMEN / Unknown 10/14/2016 6:36 AM CDT 10/14/2016 5:38 AM CDT us Generic Conversion Md PASTRANA POCT ORDERABLES - DEVIC E Final Result [facility] ORDERS INTERFACE US documented in this encounter Visit Diagnoses Not on filedocumented in this encounter
--- OUTSIDE RECORDS SUMMARY | 2024-05-10 18:11 | XMS_ITS | Encounter Summary ---
Author Organization [facility] Address [address] [place] [address]. [place] [address] [place] [address] Care Team Providers Care Supervisor Fertilizer Processing Name Role Phone Unavailable Primary Care Provider Unavailabl e Encounter Details Date Type Department Care Team (Late st Contact Info) Description 12/21/2016 Orders Only ANY CONVERSION ONE [place], [place] [id number] , Generic Conversion, Social History Tobacco Use [...] Associated Diagnosis Comments PHOSPHORUS, INORGANIC PHOSPHATE TIMED 12/21/2016 7:29 PM CDT documented in this encounter Results * PHOSPHORUS, INORGANIC PHOSPHATE (12/21/2016 7:29 PM CDT) PHOSPHORUS 2.6 2.2 - 4.5 MG/DL 12/22/2016 12:05 AM CDT [facility] SERUM OR PLASMA SPECIMEN / Unknown 12/21/2016 7:29 PM CDT 12/21/2016 11:53 PM CDT us Generic Conversion Md [facility] Final R esult [facility] [address] [place] [address], [id number] documented in this encounter Visit Diagnoses Not on filedocumented in this encounter
--- OUTSIDE RECORDS SUMMARY | 2024-05-10 18:11 | XMS_ITS | Encounter Summary ---
Author Organization [facility] Address [address] [place] [address]. [place] [address] [place] [address] Care Team Providers Care Accountant Manager Name Role Phone Unavailable Primary Care Provider Unavailabl e Encounter Details Date Type Department Care Team (Latest Contact Info) Description 10/12/2016 Abstract [facility] Social History Tobacco Use Types [...]
--- OUTSIDE RECORDS SUMMARY | 2024-05-10 18:11 | XMS_ITS | Encounter Summary ---
Author Organization [facility] Address [address] [place] [address]. [place] [address] [place] [address] Care Team Providers Care Project Program Manager Name Role Phone Unavailable Primary Care Provider Unavailabl e Encounter Details Date Type Department Care Team (Late st Contact Info) Description 12/22/2016 Orders Only ANY CONVERSION ONE [place], [place] [id number] , Generic Conversion, Social History Tobacco Use [...] Date/Time Associated Diagnosis Comments CULTURE, BACTERIA, BLOOD STAT 12/22/2016 12:17 AM CDT documented in this encounter Results * CULTURE, BACTERIA, BLOOD (12/22/2016 12:17 AM CDT) SPEC DESCRIPTION BLOOD 12/21/2016 10:59 PM CDT [facility] SPECIAL REQUESTS NO SPECIAL REQUEST 12/21/2016 10:59 PM CDT [facility] CULTURE RESULT NO GROWTH 5 DAYS 12/26/2016 11:00 PM CDT [facility] BLOOD SPECIMEN OBTAINED FOR BLOOD CULTURE / Unknown 12/22/2016 12:17 AM CDT 12/21/2016 11:18 PM CDT us Generic Conversion Md PA[facility] MICROBIOLOGY - GENERAL ORDERABLES Final Result Performing Organization Address City/State/[facility] Co de Phone Number [facility] [address] [place] [phone], [id number] documented in this encounter Visit Diagnoses Not on filedocumented in this encounter
--- OUTSIDE RECORDS SUMMARY | 2024-05-10 18:11 | XMS_ITS | Encounter Summary ---
Author Organization [facility] Address [address] [place] [address]. [place] [address] [place] [address] Care Team Providers Care Roof Service Technician Name Role Phone Unavailable Primary Care Provider Unavailabl e Encounter Details Date Type Department Care Team (Late st Contact Info) Description 10/14/2016 Orders Only [place] [address] , Generic Conversion, Social History Tobacco Use [...] GLUCOSE - MCCORMICK DOCKED DEVICE Routine 10/14/2016 3:04 AM CDT documented in this encounter Results * (ABNORMAL) POCT glucose (10/14/2016 3:04 AM CDT) GLUCOSE POC 123(H) 70 - 109 10/14/2016 2:05 AM CDT [facility] ORDERS INTERFACE WHOLE BLOOD SPECIMEN / Unknown 10/14/2016 3:04 AM CDT 10/14/2016 2:05 AM CDT us Generic Conversion Md PASTRANA POCT ORDERABLES - DEVIC E Final Result [facility] ORDERS INTERFACE US documented in this encounter Visit Diagnoses Not on filedocumented in this encounter
--- OUTSIDE RECORDS SUMMARY | 2024-05-10 18:11 | XMS_ITS | Encounter Summary ---
Author Organization [facility] Address [address] [place] [address]. [place] [address] [place] [address] Care Team Providers Care Director Clinical Operations Name Role Phone Unavailable Primary Care Provider Unavailabl e Encounter Details Date Type Department Care Team (Late st Contact Info) Description 12/21/2016 Orders [place] [address] , Generic Conversion, Social History [...] Associated Diagnosis Comments DRUG SCREEN RAPID TIMED 12/21/2016 11: 05 PM CDT documented in this encounter Results * DRUG SCREEN RAPID (12/21/2016 11:05 PM CDT) PHENCYCLIDINE PCP (U) NEGATIVE NEGATIVE 12/21/2016 10:35 PM CDT [facility] BENZODIAZEPINES SCREEN (U) NEGATIVE NEGATIVE 12/21/2016 10:35 PM CDT [facility] COCAINE METABOLITES (U) NEGATIVE NEGATIVE 12/21/2016 10:35 PM CDT [facility] AMPHETAMINE (U) NEGATIVE NEGATIVE 7 10:35 PM CDT [facility] CANNABINOIDS SCREEN (U) NEGATIVE NEGATIVE 12/21/2016 10:35 PM CDT [facility] OPIATE SCREEN (U) NEGATIVE NEGATIVE 017 10:35 PM CDT [facility] BARBITURATES SCREEN (U) NEGATIVE NEGATIVE 12/21/2016 10:35 PM CDT [facility] TRICYCLIC ANTIDEPRESSANT SCREEN (U) NEGATIVE NEGATIVE 12/21/2016 10:35 PM CDT [facility] URINE TOX COMMENT Unconfirmed screening results are to be used only for medical purposes. 12/21/2016 10:09 PM CDT [facility] CUTOFF CONCENTRATION (U) Cut-off Concentration for a positive result 12/21/2016 10:09 PM CDT [facility] Comment: Phencyclidine ? 25 ng/mL Benzodiazepines ? 300 ng/mL Cocaine ? 300 ng/mL Amphetamine ? 1000 ng/mL Cannabinoids ?50 ng/mL Opiates ? 300 ng/mL Barbiturates ?300 ng/mL TSA ? 1000 ng/mL URINE SPECIMEN / Unknown 12/21/2016 11:05 PM CDT 12/21/2016 10:13 PM CDT us Generic Conversion Md PASTRANA URINE ORDERABLES Final Result [facility] [address] [place] [address], [id number] documented in this encounter Visit Diagnoses Not on filedocumented in this encounter
--- OUTSIDE RECORDS SUMMARY | 2024-05-10 18:11 | XMS_ITS | Encounter Summary ---
Author Organization [facility] Address [address] [place] [address]. [place] [address] [place] [address] Care Team Providers Care Telecommunications Clerk Name Role Phone Unavailable Primary Care Provider Unavailabl e Encounter Details Date Type Department Care Team (Late st Contact Info) Description 10/12/2016 Orders [place] [address] , Generic Conversion, Social History Tobacco Use [...] GLUCOSE - MCCORMICK DOCKED DEVICE Routine 10/12/2016 7:03 PM CDT documented in this encounter Results * (ABNORMAL) POCT glucose (10/12/2016 7:03 PM CDT) GLUCOSE POC 157(H) 70 - 109 10/12/2016 6:07 PM CDT [facility] ORDERS INTERFACE WHOLE BLOOD SPECIMEN / Unknown 10/12/2016 7:03 PM CDT 10/12/2016 6:07 PM CDT us Generic Conversion Md PASTRANA POCT ORDERABLES - DEVIC E Final Result [facility] ORDERS INTERFACE US documented in this encounter Visit Diagnoses Not on filedocumented in this encounter
--- OUTSIDE RECORDS SUMMARY | 2024-05-10 18:11 | XMS_ITS | Encounter Summary ---
Author Organization [facility] Address [address] [place] [address]. [place] [address] [place] [address] Care Team Providers Care Cook Specialty Name Role Phone Unavailable Primary Care Provider Unavailabl e Encounter Details Date Type Department Care Team (Late st Contact Info) Description 10/11/2016 Orders [place] [address] , Generic Conversion, Social History Tobacco Use [...] POCT GLUCOSE - MCCORMICK DOCKED DEVICE Routine 10/11/2016 10:10 PM CDT documented in this encounter Results * (ABNORMAL) POCT glucose (10/11/2016 10:10 PM CDT) GLUCOSE POC 136(H) 70 - 109 10/11/2016 9:17 PM CDT [facility] ORDERS INTERFACE Comment:RN Notified WHOLE BLOOD SPECIMEN / Unknown 10/11/2016 10:10 PM CDT 10/11/2016 9:17 PM CDT us Generic Conversion Md PASTRANA POCT ORDERABLES - DEVIC E Final Result [facility] ORDERS INTERFACE US documented in this encounter Visit Diagnoses Not on filedocumented in this encounter
--- OUTSIDE RECORDS SUMMARY | 2024-05-10 18:11 | XMS_ITS | Encounter Summary ---
Author Organization [facility] Address [address] [place] [address]. [place] [address] [place] [address] Care Team Providers Care Sales Support Coordinator Name Role Phone Unavailable Primary Care Provider Unavailabl e Encounter Details Date Type Department Care Team (Late st Contact Info) Description 10/12/2016 Orders Only [place] [address] , Generic Conversion, Social History Tobacco Use [...] GLUCOSE - MCCORMICK DOCKED DEVICE Routine 10/12/2016 3:13 AM CDT documented in this encounter Results * POCT glucose (10/12/2016 3:13 AM CDT) GLUCOSE POC 74 70 - 109 10/12/2016 2:15 AM CDT [facility] ORDERS INTERFACE Comment:RN Notified WHOLE BLOOD SPECIMEN / Unknown 10/12/2016 3:13 AM CDT 10/12/2016 2:15 AM CDT us Generic Conversion Md PASTRANA POCT ORDERABLES - DEVIC E Final Result [facility] ORDERS INTERFACE US documented in this encounter Visit Diagnoses Not on filedocumented in this encounter
--- OUTSIDE RECORDS SUMMARY | 2024-05-10 18:11 | XMS_ITS | Encounter Summary ---
Author Organization [facility] Address [address] [place] [address]. [place] [address] [place] [address] Care Team Providers Care Information Technology Administrator Name Role Phone Unavailable Primary Care Provider Unavailabl e Encounter Details Date Type Department Care Team (Latest Contact Info) Description 10/27/2016 Abstract [facility] Social History Tobacco Use Types [...]
--- OUTSIDE RECORDS SUMMARY | 2024-05-10 18:11 | XMS_ITS | Encounter Summary ---
Author Organization [facility] Address [address] [place] [address]. [place] [address] [place] [address] Care Team Providers Care Medical Certification Specialist Name Role Phone Unavailable Primary Care Provider Unavailabl e Encounter Details Date Type Department Care Team (Late st Contact Info) Description 10/13/2016 Orders Only [place] [address] , Generic Conversion, Social History Tobacco Use [...] GLUCOSE - MCCORMICK DOCKED DEVICE Routine 10/13/2016 4:53 PM CDT documented in this encounter Results * (ABNORMAL) POCT glucose (10/13/2016 4:53 PM CDT) GLUCOSE POC 127(H) 70 - 109 10/13/2016 4:01 PM CDT [facility] LAB ORDERS INTERFACE WHOLE BLOOD SPECIMEN / Unknown 10/13/2016 4:53 PM CDT 10/13/2016 4:01 PM CDT us Generic Conversion Md PASTRANA POCT ORDERABLES - DEVIC E Final Result [facility] ORDERS INTERFACE US documented in this encounter Visit Diagnoses Not on filedocumented in this encounter
--- OUTSIDE RECORDS SUMMARY | 2024-05-10 18:11 | XMS_ITS | Encounter Summary ---
Author Organization [facility] Address [address] [place] [address]. [place] [address] [place] [address] Care Team Providers Care Rubber Cutting Machine Tender Name Role Phone Unavailable Primary Care Provider Unavailabl e Encounter Details Date Type Department Care Team (Late st Contact Info) Description 10/12/2016 Orders Only ANY CONVERSION ONE [place], [place] [id number] , Generic Conversion, Social History Tobacco Use [...] GLUCOSE - MCCORMICK DOCKED DEVICE Routine 10/12/2016 9:10 PM CDT documented in this encounter Results * POCT glucose (10/12/2016 9:10 PM CDT) GLUCOSE POC 75 70 - 109 10/12/2016 8:39 PM CDT [facility] LAB ORDERS INTERFACE WHOLE BLOOD SPECIMEN / Unknown 10/12/2016 9:10 PM CDT 10/12/2016 8:39 PM CDT us Generic Conversion Md PASTRANA POCT ORDERABLES - DEVIC E Final Result [facility] LAB ORDERS INTERFACE US documented in this encounter Visit Diagnoses Not on filedocumented in this encounter
--- OUTSIDE RECORDS SUMMARY | 2024-05-10 18:11 | XMS_ITS | Encounter Summary ---
Author Organization [facility] Address [address] [place] [address]. [place] [address] [place] [address] Care Team Providers Care Towboat Engineer Name Role Phone Unavailable Primary Care Provider Unavailabl e Encounter Details Date Type Department Care Team (Late st Contact Info) Description 10/12/2016 Orders [place] [address] , Generic Conversion, Social History Tobacco Use [...] GLUCOSE - MCCORMICK DOCKED DEVICE Routine 10/12/2016 2:26 PM CDT documented in this encounter Results * (ABNORMAL) POCT glucose (10/12/2016 2:26 PM CDT) GLUCOSE POC 157(H) 70 - 109 10/12/2016 1:28 PM CDT [facility] LAB ORDERS INTERFACE Comment:RN Notified WHOLE BLOOD SPECIMEN / Unknown 10/12/2016 2:26 PM CDT 10/12/2016 1:28 PM CDT us Generic Conversion Md PASTRANA POCT ORDERABLES - DEVIC E Final Result [facility] LAB ORDERS INTERFACE US documented in this encounter Visit Diagnoses Not on filedocumented in this encounter
--- OUTSIDE RECORDS SUMMARY | 2024-05-10 18:11 | XMS_ITS | Encounter Summary ---
Author Organization [facility] Address [address] [place] [address]. [place] [address] [place] [address] Care Team Providers Care Shot Core Drill Operator Name Role Phone Unavailable Primary Care Provider Unavailabl e Encounter Details Date Type Department Care Team (Late st Contact Info) Description 10/14/2016 Orders [place] [address] , Generic Conversion, Social History Tobacco Use [...] GLUCOSE - MCCORMICK DOCKED DEVICE Routine 10/14/2016 10:20 AM CDT documented in this encounter Results * (ABNORMAL) POCT glucose (10/14/2016 10:20 AM CDT) GLUCOSE POC 127(H) 70 - 109 10/14/2016 9:25 AM CDT [facility] LAB ORDERS INTERFACE WHOLE BLOOD SPECIMEN / Unknown 10/14/2016 10:20 AM CDT 10/14/2016 9:25 AM CDT us Generic Conversion Md PASTRANA POCT ORDERABLES - DEVIC E Final Result [facility] LAB ORDERS INTERFACE US documented in this encounter Visit Diagnoses Not on filedocumented in this encounter
--- OUTSIDE RECORDS SUMMARY | 2024-05-10 18:11 | XMS_ITS | Encounter Summary ---
Author Organization [facility] Address [address] [place] [address]. [place] [address] [place] [address] Care Team Providers Care Physical Trainer Name Role Phone Unavailable Primary Care Provider Unavailabl e Encounter Details Date Type Department Care Team (Late st Contact Info) Description 12/21/2016 Orders Only [place] [address] , Generic Conversion, Social History [...] Date/Time Associated Diagnosis Comments URINE BACTERIA CULTURE TIMED 12/21/2016 11:05 PM CDT documented in this encounter Results * CULTURE URINE (12/21/2016 11:05 PM CDT) SPEC DESCRIPTION URINE 12/21/2016 10:09 PM CDT [facility] SPECIAL REQUESTS NO SPECIAL REQUEST 12/21/2016 10:09 PM CDT [facility] CULTURE RESULT FEW CONTAMINANTS 12/02 1:56 AM CDT [facility] URINE SPECIMEN / Unknown 12/21/2016 11:05 PM CDT 12/21/2016 10:19 PM CDT Comment:URINE CLEAN CATCH us Generic Conversion Md PASTRANA MICROBIOLOGY - GENERAL ORDERABLES Final Result Performing Organization Address City/State/[facility] Co de Phone Number [facility] [address] [place] [address], [id number] documented in this encounter Visit Diagnoses Not on filedocumented in this encounter
--- OUTSIDE RECORDS SUMMARY | 2024-05-10 18:11 | XMS_ITS | Encounter Summary ---
Author Organization [facility] Address [address] [place] [address]. [place] [address] [place] [address] Care Team Providers Care Polymerization Engineer Name Role Phone Unavailable Primary Care Provider Unavailabl e Encounter Details Date Type Department Care Team (Late st Contact Info) Description 12/22/2016 Orders Only ANY CONVERSION ONE [place], [place] [id number] , Generic Conversion, Social History Tobacco Use [...] Date/Time Associated Diagnosis Comments BETA-HYDROXYBUTYRAT E TIMED 12/22/2016 12:17 AM CDT documented in this encounter Results * (ABNORMAL) BETA-HYDROXYBUTYRATE (12/22/2016 12:17 AM CDT) BETA-HYDROXYBU TYRATE 6.4(H) 0.0 - 0.3 MMOL/L 12/21/2016 11:36 PM CDT [facility] SERUM OR PLASMA SPECIMEN / Unknown 12/22/2016 12:17 AM CDT 12/21/2016 11:18 PM CDT us Generic Conversion Md PASTRANA LABORATORY Final R esult [facility] [address] [place] [address], [id number] documented in this encounter Visit Diagnoses Not on filedocumented in this encounter
--- OUTSIDE RECORDS SUMMARY | 2024-05-10 18:11 | XMS_ITS | Encounter Summary ---
Author Organization [facility] Address [address] [place] [address]. [place] [address] [place] [address] Care Team Providers Care Enameler Name Role Phone Unavailable Primary Care Provider Unavailabl e Encounter Details Date Type Department Care Team (Late st Contact Info) Description 10/13/2016 Orders [place] [address] , Generic Conversion, Social History Tobacco Use [...] GLUCOSE - MCCORMICK DOCKED DEVICE Routine 10/13/2016 12:06 PM CDT documented in this encounter Results * POCT glucose (10/13/2016 12:06 PM CDT) GLUCOSE POC 97 70 - 109 10/13/2016 11:08 AM CDT [facility] ORDERS INTERFACE WHOLE BLOOD SPECIMEN / Unknown 10/13/2016 12:06 PM CDT 10/13/2016 11:08 AM CDT us Generic Conversion Md PASTRANA POCT ORDERABLES - DEVIC E Final Result [facility] LAB ORDERS INTERFACE US documented in this encounter Visit Diagnoses Not on filedocumented in this encounter
--- OUTSIDE RECORDS SUMMARY | 2024-05-10 18:11 | XMS_ITS | Encounter Summary ---
Author Organization [facility] Address [address] [place] [address]. [place] [address] [place] [address] Care Team Providers Care Director Custom Name Role Phone Unavailable Primary Care Provider Unavailabl e Encounter Details Date Type Department Care Team (Late st Contact Info) Description 12/21/2016 Orders Only [place] [address] , Generic Conversion, Social History [...] Procedure Name Priority Date/Time Associated Diagnosis Comments HCG QUANT (SERUM)-CHORIONIC GONADOTROPIN STAT 12/21/2016 7:29 PM CDT documented in this encounter Results * BHCG QUANT (SERUM)-CHORIONIC GONADOTROPIN (12/21/2016 7:29 PM CDT) HCG QUANTITATIVE <1 MIU/ML 12/22/19 17 7:11 PM CDT [facility] Comment: <5 IS NEGATIVE 5-25 IS BORDERLINE >25 IS POSITIVE SERUM OR PLASMA SPECIMEN / Unknown 12/21/2016 7:29 PM CDT 12/21/2016 6:32 PM CDT Generic Conversion Md PASTRANA LABORATORY Final R esult [facility] [address] [place] [address], [id number] documented in this encounter Visit Diagnoses Not on filedocumented in this encounter
--- OUTSIDE RECORDS SUMMARY | 2024-05-10 18:11 | XMS_ITS | Encounter Summary ---
Author Organization [facility] Address [address] [place] [address]. [place] [address] [place] [address] Care Team Providers Care Customer Relations Specialist Name Role Phone Unavailable Primary Care Provider Unavailabl e Encounter Details Date Type Department Care Team (Latest Contact Info) Description 10/18/2016 Abstract [facility] Social History Tobacco Use [...]
--- OUTSIDE RECORDS SUMMARY | 2024-05-10 18:11 | XMS_ITS | Encounter Summary ---
Author Organization [facility] Address [address] [place] [address]. [place] [address] [place] [address] Care Team Providers Care Electoral Officer Name Role Phone Unavailable Primary Care Provider Unavailabl e Encounter Details Date Type Department Care Team (Latest Contact Info) Description 10/13/2016 Abstract [facility] Medical [facility] Social History Tobacco Use Types [...]
--- OUTSIDE RECORDS SUMMARY | 2024-05-10 18:11 | XMS_ITS | Encounter Summary ---
Author Organization [facility] Address [address] [place] [address]. [place] [address] [place] [address] Care Team Providers Care Spring Coiling Machine Setter Name Role Phone Unavailable Primary Care Provider Unavailabl e Encounter Details Date Type Department Care Team (Late st Contact Info) Description 10/13/2016 Orders Only ANY CONVERSION ONE [place], [place] [id number] , Generic Conversion, Social History Tobacco Use [...] GLUCOSE - MCCORMICK DOCKED DEVICE Routine 10/13/2016 10:05 PM CDT documented in this encounter Results * (ABNORMAL) POCT glucose (10/13/2016 10:05 PM CDT) GLUCOSE POC 66(L) 70 - 109 10/13/2016 9:15 PM CDT [facility] ORDERS INTERFACE WHOLE BLOOD SPECIMEN / Unknown 10/13/2016 10:05 PM CDT 10/13/2016 9:15 PM CDT us Generic Conversion Md PASTRANA POCT ORDERABLES - DEVIC E Final Result [facility] LAB ORDERS INTERFACE US documented in this encounter Visit Diagnoses Not on filedocumented in this encounter
--- OUTSIDE RECORDS SUMMARY | 2024-05-10 18:12 | XMS_ITS | Encounter Summary ---
Author Organization [facility] Address [address] [place] [address]. [place] [address] [place] [address] Care Team Providers Care Master Lay Out Specialist Name Role Phone Unavailable Primary Care Provider Unavailabl e Encounter Details Date Type Department Care Team (Late st Contact Info) Description 10/08/2016 Orders Only [place] [address] , Generic Conversion, Social History Tobacco Use [...] POCT GLUCOSE - MCCORMICK DOCKED DEVICE Routine 10/08/2016 3:18 AM CDT documented in this encounter Results * (ABNORMAL) POCT glucose (10/08/2016 3:18 AM CDT) GLUCOSE POC 146(H) 70 - 109 10/08/2016 2:23 AM CDT [facility] ORDERS INTERFACE Comment:RN Notified WHOLE BLOOD SPECIMEN / Unknown 10/08/2016 3:18 AM CDT 10/08/2016 2:23 AM CDT us Generic Conversion Md PASTRANA POCT ORDERABLES - DEVIC E Final Result [facility] ORDERS INTERFACE US documented in this encounter Visit Diagnoses Not on filedocumented in this encounter
--- OUTSIDE RECORDS SUMMARY | 2024-05-10 18:12 | XMS_ITS | Encounter Summary ---
Author Organization [facility] Address [address] [place] [address]. [place] [address] [place] [address] Care Team Providers Care Director Foundation Name Role Phone Unavailable Primary Care Provider Unavailabl e Encounter Details Date Type Department Care Team (Late st Contact Info) Description 10/09/2016 Orders [place] [address] , Generic Conversion, Social History Tobacco Use [...] POCT GLUCOSE - MCCORMICK DOCKED DEVICE Routine 10/09/2016 5:04 PM CDT documented in this encounter Results * POCT glucose (10/09/2016 5:04 PM CDT) GLUCOSE POC 85 70 - 109 10/09/2016 4:07 PM CDT [facility] LAB ORDERS INTERFACE WHOLE BLOOD SPECIMEN / Unknown 10/09/2016 5:04 PM CDT 10/09/2016 4:06 PM CDT us Generic Conversion Md PASTRANA POCT ORDERABLES - DEVIC E Final Result [facility] LAB ORDERS INTERFACE US documented in this encounter Visit Diagnoses Not on filedocumented in this encounter
--- OUTSIDE RECORDS SUMMARY | 2024-05-10 18:12 | XMS_ITS | Encounter Summary ---
Author Organization [facility] Address [address] [place] [address]. [place] [address] [place] [address] Care Team Providers Care Social Worker Palliative Care Name Role Phone Unavailable Primary Care Provider Unavailabl e Encounter Details Date Type Department Care Team (Late st Contact Info) Description 10/10/2016 Orders [place] [address] , Generic Conversion, Social History Tobacco Use [...] POCT GLUCOSE - MCCORMICK DOCKED DEVICE Routine 10/10/2016 3:08 AM CDT documented in this encounter Results * (ABNORMAL) POCT glucose (10/10/2016 3:08 AM CDT) GLUCOSE POC 177(H) 70 - 109 10/10/2016 3:38 AM CDT [facility] LAB ORDERS INTERFACE WHOLE BLOOD SPECIMEN / Unknown 10/10/2016 3:08 AM CDT 10/10/2016 3:38 AM CDT us Generic Conversion Md PASTRANA POCT ORDERABLES - DEVIC E Final Result [facility] ORDERS INTERFACE US documented in this encounter Visit Diagnoses Not on filedocumented in this encounter
--- OUTSIDE RECORDS SUMMARY | 2024-05-10 18:12 | XMS_ITS | Encounter Summary ---
Author Organization [facility] Address [address] [place] [address]. [place] [address] [place] [address] Care Team Providers Care Meat Packager Name Role Phone Unavailable Primary Care Provider Unavailabl e Encounter Details Date Type Department Care Team (Late st Contact Info) Description 10/07/2016 Orders [place] [address] , Generic Conversion, Social History Tobacco Use [...] POCT GLUCOSE - MCCORMICK DOCKED DEVICE Routine 10/07/2016 9:40 PM CDT documented in this encounter Results * POCT glucose (10/07/2016 9:40 PM CDT) GLUCOSE POC 89 70 - 109 10/07/2016 9:16 PM CDT [facility] LAB ORDERS INTERFACE WHOLE BLOOD SPECIMEN / Unknown 10/07/2016 9:40 PM CDT 10/07/2016 9:16 PM CDT us Generic Conversion Md PASTRANA POCT ORDERABLES - DEVIC E Final Result [facility] LAB ORDERS INTERFACE US documented in this encounter Visit Diagnoses Not on filedocumented in this encounter
--- OUTSIDE RECORDS SUMMARY | 2024-05-10 18:12 | XMS_ITS | Encounter Summary ---
Author Organization [facility] Address [address] [place] [address]. [place] [address] [place] [address] Care Team Providers Care Oriental Rug Repairer Name Role Phone Unavailable Primary Care Provider Unavailabl e Encounter Details Date Type Department Care Team (Latest Contact Info) Description 10/07/2016 Abstract [facility] Medical [facility] Social History Tobacco Use Types [...]
--- OUTSIDE RECORDS SUMMARY | 2024-05-10 18:12 | XMS_ITS | Encounter Summary ---
Author Organization [facility] Address [address] [place] [address]. [place] [address] [place] [address] Care Team Providers Care Inter Com Installer Name Role Phone Unavailable Primary Care Provider Unavailabl e Encounter Details Date Type Department Care Team (Late st Contact Info) Description 10/08/2016 Orders [place] [address] , Generic Conversion, Social History Tobacco Use [...] GLUCOSE - MCCORMICK DOCKED DEVICE Routine 10/08/2016 5:50 AM CDT documented in this encounter Results * (ABNORMAL) POCT glucose (10/08/2016 5:50 AM CDT) GLUCOSE POC 139(H) 70 - 109 10/08/2016 4:53 AM CDT [facility] LAB ORDERS INTERFACE WHOLE BLOOD SPECIMEN / Unknown 10/08/2016 5:50 AM CDT 10/08/2016 4:53 AM CDT us Generic Conversion Md PASTRANA POCT ORDERABLES - DEVIC E Final Result [facility] ORDERS INTERFACE US documented in this encounter Visit Diagnoses Not on filedocumented in this encounter
--- OUTSIDE RECORDS SUMMARY | 2024-05-10 18:12 | XMS_ITS | Encounter Summary ---
Author Organization [facility] Address [address] [place] [address]. [place] [address] [place] [address] Care Team Providers Care Dam Tender Name Role Phone Unavailable Primary Care Provider Unavailabl e Encounter Details Date Type Department Care Team (Late st Contact Info) Description 10/09/2016 Orders [place] [address] , Generic Conversion, Social History Tobacco Use [...] GLUCOSE - MCCORMICK DOCKED DEVICE Routine 10/09/2016 8:12 AM CDT documented in this encounter Results * (ABNORMAL) POCT glucose (10/09/2016 8:12 AM CDT) GLUCOSE POC 121(H) 70 - 109 10/09/2016 7:15 AM CDT [facility] ORDERS INTERFACE WHOLE BLOOD SPECIMEN / Unknown 10/09/2016 8:12 AM CDT 10/09/2016 7:15 AM CDT us Generic Conversion Md PASTRANA POCT ORDERABLES - DEVIC E Final Result [facility] ORDERS INTERFACE US documented in this encounter Visit Diagnoses Not on filedocumented in this encounter
--- OUTSIDE RECORDS SUMMARY | 2024-05-10 18:12 | XMS_ITS | Encounter Summary ---
Author Organization [facility] Address [address] [place] [address]. [place] [address] [place] [address] Care Team Providers Care Solar Resource Assessor Name Role Phone Unavailable Primary Care Provider Unavailabl e Encounter Details Date Type Department Care Team (Late st Contact Info) Description 10/10/2016 Orders [place] [address] , Generic Conversion, Social History Tobacco Use [...] GLUCOSE - MCCORMICK DOCKED DEVICE Routine 10/10/2016 12:03 AM CDT documented in this encounter Results * POCT glucose (10/10/2016 12:03 AM CDT) GLUCOSE POC 83 70 - 109 10/09/2016 11:26 PM CDT [facility] ORDERS INTERFACE WHOLE BLOOD SPECIMEN / Unknown 10/10/2016 12:03 AM CDT 10/09/2016 11:26 PM CDT us Generic Conversion Md PASTRANA POCT ORDERABLES - DEVIC E Final Result [facility] ORDERS INTERFACE US documented in this encounter Visit Diagnoses Not on filedocumented in this encounter
--- OUTSIDE RECORDS SUMMARY | 2024-05-10 18:12 | XMS_ITS | Encounter Summary ---
Author Organization [facility] Address [address] [place] [address]. [place] [address] [place] [address] Care Team Providers Care Hand Winder Name Role Phone Unavailable Primary Care Provider Unavailabl e Encounter Details Date Type Department Care Team (Late st Contact Info) Description 10/08/2016 Orders [place] [address] , Generic Conversion, Social History Tobacco Use [...] GLUCOSE - MCCORMICK DOCKED DEVICE Routine 10/08/2016 5:27 PM CDT documented in this encounter Results * POCT glucose (10/08/2016 5:27 PM CDT) GLUCOSE POC 105 70 - 109 10/08/2016 4:51 PM CDT [facility] LAB ORDERS INTERFACE Comment:RN Notified WHOLE BLOOD SPECIMEN / Unknown 10/08/2016 5:27 PM CDT 10/08/2016 4:51 PM CDT us Generic Conversion Md PASTRANA POCT ORDERABLES - DEVIC E Final Result [facility] ORDERS INTERFACE US documented in this encounter Visit Diagnoses Not on filedocumented in this encounter
--- OUTSIDE RECORDS SUMMARY | 2024-05-10 18:12 | XMS_ITS | Encounter Summary ---
Author Organization [facility] Address [address] [place] [address]. [place] [address] [place] [address] Care Team Providers Care Stoner Hand Name Role Phone Unavailable Primary Care Provider Unavailabl e Encounter Details Date Type Department Care Team (Late st Contact Info) Description 10/09/2016 Orders [place] [address] , Generic Conversion, Social History Tobacco Use [...] GLUCOSE - MCCORMICK DOCKED DEVICE Routine 10/09/2016 7:01 AM CDT documented in this encounter Results * (ABNORMAL) POCT glucose (10/09/2016 7:01 AM CDT) GLUCOSE POC 46(L) 70 - 109 10/09/2016 6:05 AM CDT [facility] LAB ORDERS INTERFACE WHOLE BLOOD SPECIMEN / Unknown 10/09/2016 7:01 AM CDT 10/09/2016 6:05 AM CDT us Generic Conversion Md PASTRANA POCT ORDERABLES - DEVIC E Final Result [facility] ORDERS INTERFACE US documented in this encounter Visit Diagnoses Not on filedocumented in this encounter
--- OUTSIDE RECORDS SUMMARY | 2024-05-10 18:12 | XMS_ITS | Encounter Summary ---
Author Organization [facility] - [facility] Address [address] [place] [address]. [place] [address] [place] [address] Care Team Providers Care Assistant Professor Of Music Name Role Phone Unavailable Primary Care Provider Unavailabl e Encounter Details Date Type Department Care Team (Late st Contact Info) Description 10/10/2016 Orders Only [place] [address] , Generic Conversion, Social History Tobacco Use [...] GLUCOSE - MCCORMICK DOCKED DEVICE Routine 10/10/2016 8:59 PM CDT documented in this encounter Results * (ABNORMAL) POCT glucose (10/10/2016 8:59 PM CDT) GLUCOSE POC 164(H) 70 - 109 10/10/2016 8:02 PM CDT [facility] ORDERS INTERFACE Comment:RN Notified WHOLE BLOOD SPECIMEN / Unknown 10/10/2016 8:59 PM CDT 10/10/2016 8:02 PM CDT us Generic Conversion Md PASTRANA POCT ORDERABLES - DEVIC E Final Result [facility] ORDERS INTERFACE US documented in this encounter Visit Diagnoses Not on filedocumented in this encounter
--- OUTSIDE RECORDS SUMMARY | 2024-05-10 18:12 | XMS_ITS | Encounter Summary ---
Author Organization [facility] - [facility] Address [address] [place] [address]. [place] [address] [place] [address] Care Team Providers Care Mixing Place Supervisor Name Role Phone Unavailable Primary Care Provider Unavailabl e Encounter Details Date Type Department Care Team (Late st Contact Info) Description 10/07/2016 Orders Only [place] [address] , Generic Conversion, Social History Tobacco Use [...] GLUCOSE - MCCORMICK DOCKED DEVICE Routine 10/07/2016 3:02 AM CDT documented in this encounter Results * (ABNORMAL) POCT glucose (10/07/2016 3:02 AM CDT) GLUCOSE POC 143(H) 70 - 109 10/07/2016 2:04 AM CDT [facility] LAB ORDERS INTERFACE WHOLE BLOOD SPECIMEN / Unknown 10/07/2016 3:02 AM CDT 10/07/2016 2:04 AM CDT us Generic Conversion Md PASTRANA POCT ORDERABLES - DEVIC E Final Result [facility] LAB ORDERS INTERFACE US documented in this encounter Visit Diagnoses Not on filedocumented in this encounter
--- OUTSIDE RECORDS SUMMARY | 2024-05-10 18:12 | XMS_ITS | Encounter Summary ---
Author Organization [facility] - [facility] Address [address] [place] [address]. [place] [address] [place] [address] Care Team Providers Care Farmworkers Name Role Phone Unavailable Primary Care Provider Unavailabl e Encounter Details Date Type Department Care Team (Late st Contact Info) Description 10/09/2016 Orders [place] [address] , Generic Conversion, Social History Tobacco Use [...] GLUCOSE - MCCORMICK DOCKED DEVICE Routine 10/09/2016 4:02 PM CDT documented in this encounter Results * POCT glucose (10/09/2016 4:02 PM CDT) GLUCOSE POC 98 70 - 109 10/09/2016 3:04 PM CDT [facility] LAB ORDERS INTERFACE WHOLE BLOOD SPECIMEN / Unknown 10/09/2016 4:02 PM CDT 10/09/2016 3:03 PM CDT us Generic Conversion Md PASTRANA POCT ORDERABLES - DEVIC E Final Result [facility] LAB ORDERS INTERFACE US documented in this encounter Visit Diagnoses Not on filedocumented in this encounter
--- OUTSIDE RECORDS SUMMARY | 2024-05-10 18:12 | XMS_ITS | Encounter Summary ---
Author Organization [facility] Address [address] [place] [address]. [place] [address] [place] [address] Care Team Providers Care Stapling Machine Operator Name Role Phone Unavailable Primary Care Provider Unavailabl e Encounter Details Date Type Department Care Team (Late st Contact Info) Description 10/09/2016 Orders [place] [address] , Generic Conversion, Social History Tobacco Use [...] GLUCOSE - MCCORMICK DOCKED DEVICE Routine 10/09/2016 3:02 PM CDT documented in this encounter Results * POCT glucose (10/09/2016 3:02 PM CDT) GLUCOSE POC 96 70 - 109 10/09/2016 2:06 PM CDT [facility] LAB ORDERS INTERFACE WHOLE BLOOD SPECIMEN / Unknown 10/09/2016 3:02 PM CDT 10/09/2016 2:06 PM CDT us Generic Conversion Md PASTRANA POCT ORDERABLES - DEVIC E Final Result [facility] LAB ORDERS INTERFACE US documented in this encounter Visit Diagnoses Not on filedocumented in this encounter
--- OUTSIDE RECORDS SUMMARY | 2024-05-10 18:12 | XMS_ITS | Encounter Summary ---
Author Organization [facility] - [facility] Address [address] [place] [address]. [place] [address] [place] [address] Care Team Providers Care Floral Arranger Name Role Phone Unavailable Primary Care Provider Unavailabl e Encounter Details Date Type Department Care Team (Late st Contact Info) Description 10/10/2016 Orders [place] [address] , Generic Conversion, Social History Tobacco Use [...] GLUCOSE - MCCORMICK DOCKED DEVICE Routine 10/10/2016 6:59 AM CDT documented in this encounter Results * (ABNORMAL) POCT glucose (10/10/2016 6:59 AM CDT) GLUCOSE POC 229(H) 70 - 109 10/10/2016 6:05 AM CDT [facility] LAB ORDERS INTERFACE WHOLE BLOOD SPECIMEN / Unknown 10/10/2016 6:59 AM CDT 10/10/2016 6:05 AM CDT us Generic Conversion Md PASTRANA POCT ORDERABLES - DEVIC E Final Result [facility] LAB ORDERS INTERFACE US documented in this encounter Visit Diagnoses Not on filedocumented in this encounter
--- OUTSIDE RECORDS SUMMARY | 2024-05-10 18:12 | XMS_ITS | Encounter Summary ---
Author Organization [facility] - [facility] Address [address] [place] [address]. [place] [address] [place] [address] Care Team Providers Care Glassblower Name Role Phone Unavailable Primary Care Provider Unavailabl e Encounter Details Date Type Department Care Team (Late st Contact Info) Description 10/04/2016 Orders [place] [address] , Generic Conversion, Social History Tobacco Use [...] POCT GLUCOSE - MCCORMICK DOCKED DEVICE Routine 10/04/2016 10:08 PM CDT documented in this encounter Results * (ABNORMAL) POCT glucose (10/04/2016 10:08 PM CDT) GLUCOSE POC 137(H) 70 - 109 10/04/2016 9:11 PM CDT [facility] LAB ORDERS INTERFACE WHOLE BLOOD SPECIMEN / Unknown 10/04/2016 10:08 PM CDT 10/04/2016 9:10 PM CDT us Generic Conversion Md PASTRANA POCT ORDERABLES - DEVIC E Final Result [facility] LAB ORDERS INTERFACE US documented in this encounter Visit Diagnoses Not on filedocumented in this encounter
--- OUTSIDE RECORDS SUMMARY | 2024-05-10 18:12 | XMS_ITS | Encounter Summary ---
Author Organization [facility] - [facility] Address [address] [place] [address]. [place] [address] [place] [address] Care Team Providers Care Talkback Host Name Role Phone Unavailable Primary Care Provider Unavailabl e Encounter Details Date Type Department Care Team (Late st Contact Info) Description 10/07/2016 Orders [place] [address] , Generic Conversion, Social History Tobacco Use [...] GLUCOSE - MCCORMICK DOCKED DEVICE Routine 10/07/2016 7:06 PM CDT documented in this encounter Results * (ABNORMAL) POCT glucose (10/07/2016 7:06 PM CDT) GLUCOSE POC 113(H) 70 - 109 10/07/2016 6:33 PM CDT [facility] LAB ORDERS INTERFACE WHOLE BLOOD SPECIMEN / Unknown 10/07/2016 7:06 PM CDT 10/07/2016 6:33 PM CDT us Generic Conversion Md PASTRANA POCT ORDERABLES - DEVIC E Final Result [facility] LAB ORDERS INTERFACE US documented in this encounter Visit Diagnoses Not on filedocumented in this encounter
--- OUTSIDE RECORDS SUMMARY | 2024-05-10 18:12 | XMS_ITS | Encounter Summary ---
Author Organization [facility] - [facility] Address [address] [place] [address]. [place] [address] [place] [address] Care Team Providers Care Chief Vendor Quality Name Role Phone Unavailable Primary Care Provider Unavailabl e Encounter Details Date Type Department Care Team (Late st Contact Info) Description 10/08/2016 Orders [place] [address] , Generic Conversion, Social History Tobacco Use [...] GLUCOSE - MCCORMICK DOCKED DEVICE Routine 10/08/2016 9:22 PM CDT documented in this encounter Results * (ABNORMAL) POCT glucose (10/08/2016 9:22 PM CDT) GLUCOSE POC 120(H) 70 - 109 10/08/2016 8:27 PM CDT [facility] LAB ORDERS INTERFACE Comment:RN Notified WHOLE BLOOD SPECIMEN / Unknown 10/08/2016 9:22 PM CDT 10/08/2016 8:27 PM CDT us Generic Conversion Md PASTRANA POCT ORDERABLES - DEVIC E Final Result [facility] LAB ORDERS INTERFACE US documented in this encounter Visit Diagnoses Not on filedocumented in this encounter
--- OUTSIDE RECORDS SUMMARY | 2024-05-10 18:12 | XMS_ITS | Encounter Summary ---
Author Organization [facility] - [facility] Address [address] [place] [address]. [place] [address] [place] [address] Care Team Providers Care Real Estate Utilization Officer Name Role Phone Unavailable Primary Care Provider Unavailabl e Encounter Details Date Type Department Care Team (Late st Contact Info) Description 10/05/2016 Orders Only [place] [address] , Generic Conversion, Social History Tobacco Use [...] POCT GLUCOSE - MCCORMICK DOCKED DEVICE Routine 10/05/2016 4:22 PM CDT documented in this encounter Results * (ABNORMAL) POCT glucose (10/05/2016 4:22 PM CDT) GLUCOSE POC 200(H) 70 - 109 10/05/2016 3:[address] [facility] LAB ORDERS INTERFACE WHOLE BLOOD SPECIMEN / Unknown 10/05/2016 4:22 PM CDT 10/05/2016 3:24 PM CDT us Generic Conversion Md PASTRANA POCT ORDERABLES - DEVIC E Final Result [facility] LAB ORDERS INTERFACE US documented in this encounter Visit Diagnoses Not on filedocumented in this encounter
--- OUTSIDE RECORDS SUMMARY | 2024-05-10 18:12 | XMS_ITS | Encounter Summary ---
Author Organization [facility] Address [address] [place] [address]. [place] [address] [place] [address] Care Team Providers Care Cfo Name Role Phone Unavailable Primary Care Provider Unavailabl e Encounter Details Date Type Department Care Team (Late st Contact Info) Description 10/04/2016 Orders Only ANY CONVERSION ONE [place] [id number] , Generic Conversion, Social History Tobacco Use [...] Procedure Name Priority Date/Time Associated Diagnosis Comments TYPE & SCREEN TIMED 10/04/2016 9:38 AM CDT documented in this encounter Results * TYPE & SCREEN (10/04/2016 9:38 AM CDT) ABO/RH O POSITIVE 10/04/2016 10:18 AM CDT [facility] ANTIBODY SCREEN NEGATIVE 10:18 AM CDT [facility] SAMPLE EXPIRATION 10/07/2016 10/04/2016 8:49 AM CDT [facility] 10/04/2016 9:38 AM CDT 10/04/2016 8:40 AM CDT us Generic Conversion Md PASTRANA BLOOD BANK TEST ORDERAB LES Final Result Performing Organization Address City/State/[facility] Co de Phone Number [facility] [address] [place] [address], [id number] documented in this encounter Visit Diagnoses Not on filedocumented in this encounter
--- OUTSIDE RECORDS SUMMARY | 2024-05-10 18:12 | XMS_ITS | Encounter Summary ---
Author Organization [facility] - [facility] Address [address] [place] [address]. [place] [address] [place] [address] Care Team Providers Care Resident Advisor Name Role Phone Unavailable Primary Care Provider Unavailabl e Encounter Details Date Type Department Care Team (Late st Contact Info) Description 10/06/2016 Orders [place] [address] , Generic Conversion, Social History Tobacco Use [...] POCT GLUCOSE - MCCORMICK DOCKED DEVICE Routine 10/06/2016 12:05 PM CDT documented in this encounter Results * (ABNORMAL) POCT glucose (10/06/2016 12:05 PM CDT) GLUCOSE POC 161(H) 70 - 109 10/06/2016 11:08 AM CDT [facility] LAB ORDERS INTERFACE WHOLE BLOOD SPECIMEN / Unknown 10/06/2016 12:05 PM CDT 10/06/2016 11:08 AM CDT us Generic Conversion Md PASTRANA POCT ORDERABLES - DEVIC E Final Result [facility] LAB ORDERS INTERFACE US documented in this encounter Visit Diagnoses Not on filedocumented in this encounter
--- OUTSIDE RECORDS SUMMARY | 2024-05-10 18:12 | XMS_ITS | Encounter Summary ---
Author Organization [facility] - [facility] Address [address] [place] [address]. [place] [address] [place] [address] Care Team Providers Care Men'S Leather Dress Belt Maker Name Role Phone Unavailable Primary Care Provider Unavailabl e Encounter Details Date Type Department Care Team (Late st Contact Info) Description 10/04/2016 Orders [place] [address] , Generic Conversion, Social History Tobacco Use [...] GLUCOSE - MCCORMICK DOCKED DEVICE Routine 10/04/2016 3:42 PM CDT documented in this encounter Results * (ABNORMAL) POCT glucose (10/04/2016 3:42 PM CDT) GLUCOSE POC 126(H) 70 - 109 10/04/2016 2:44 PM CDT [facility] LAB ORDERS INTERFACE WHOLE BLOOD SPECIMEN / Unknown 10/04/2016 3:42 PM CDT 10/04/2016 2:44 PM CDT us Generic Conversion Md PASTRANA POCT ORDERABLES - DEVIC E Final Result [facility] ORDERS INTERFACE US documented in this encounter Visit Diagnoses Not on filedocumented in this encounter
--- OUTSIDE RECORDS SUMMARY | 2024-05-10 18:12 | XMS_ITS | Encounter Summary ---
Author Organization [facility] Address [address] [place] [address]. [place] [address] [place] [address] Care Team Providers Care Bar Finish Operator Name Role Phone Unavailable Primary Care Provider Unavailabl e Encounter Details Date Type Department Care Team (Late st Contact Info) Description 10/06/2016 Orders [place] [address] , Generic Conversion, Social History Tobacco Use [...] GLUCOSE - MCCORMICK DOCKED DEVICE Routine 10/06/2016 2:07 PM CDT documented in this encounter Results * (ABNORMAL) POCT glucose (10/06/2016 2:07 PM CDT) GLUCOSE POC 206(H) 70 - 109 10/06/2016 1:09 PM CDT [facility] LAB ORDERS INTERFACE WHOLE BLOOD SPECIMEN / Unknown 10/06/2016 2:07 PM CDT 10/06/2016 1:09 PM CDT us Generic Conversion Md PASTRANA POCT ORDERABLES - DEVIC E Final Result [facility] LAB ORDERS INTERFACE US documented in this encounter Visit Diagnoses Not on filedocumented in this encounter
--- OUTSIDE RECORDS SUMMARY | 2024-05-10 18:12 | XMS_ITS | Encounter Summary ---
Author Organization [facility] - [facility] Address [address] [place] [address]. [place] [address] [place] [address] Care Team Providers Care Clinical Operations Leader Name Role Phone Unavailable Primary Care Provider Unavailabl e Encounter Details Date Type Department Care Team (Late st Contact Info) Description 10/09/2016 Orders [place] [address] , Generic Conversion, Social History Tobacco Use [...] GLUCOSE - MCCORMICK DOCKED DEVICE Routine 10/09/2016 6:33 AM CDT documented in this encounter Results * (ABNORMAL) POCT glucose (10/09/2016 6:33 AM CDT) GLUCOSE POC 67(L) 70 - 109 10/09/2016 5:38 AM CDT [facility] LAB ORDERS INTERFACE WHOLE BLOOD SPECIMEN / Unknown 10/09/2016 6:33 AM CDT 10/09/2016 5:38 AM CDT us Generic Conversion Md PASTRANA POCT ORDERABLES - DEVIC E Final Result [facility] LAB ORDERS INTERFACE US documented in this encounter Visit Diagnoses Not on filedocumented in this encounter
--- OUTSIDE RECORDS SUMMARY | 2024-05-10 18:12 | XMS_ITS | Encounter Summary ---
Author Organization [facility] - [facility] Address [address] [place] [address]. [place] [address] [place] [address] Care Team Providers Care Flight Nurse Name Role Phone Unavailable Primary Care Provider Unavailabl e Encounter Details Date Type Department Care Team (Late st Contact Info) Description 10/04/2016 Orders [place] [address] , Generic Conversion, Social History Tobacco Use [...] GLUCOSE - MCCORMICK DOCKED DEVICE Routine 10/04/2016 2:45 AM CDT documented in this encounter Results * (ABNORMAL) POCT glucose (10/04/2016 2:45 AM CDT) GLUCOSE POC 173(H) 70 - 109 10/04/2016 1:47 AM CDT [facility] LAB ORDERS INTERFACE WHOLE BLOOD SPECIMEN / Unknown 10/04/2016 2:45 AM CDT 10/04/2016 1:46 AM CDT us Generic Conversion Md PASTRANA POCT ORDERABLES - DEVIC E Final Result [facility] ORDERS INTERFACE US documented in this encounter Visit Diagnoses Not on filedocumented in this encounter
--- OUTSIDE RECORDS SUMMARY | 2024-05-10 18:12 | XMS_ITS | Encounter Summary ---
Author Organization [facility] - [facility] Address [address] [place] [address]. [place] [address] [place] [address] Care Team Providers Care Retail Selling Floor Leader Name Role Phone Unavailable Primary Care Provider Unavailabl e Encounter Details Date Type Department Care Team (Late st Contact Info) Description 10/10/2016 Orders [place] [address] , Generic Conversion, Social History Tobacco Use [...] GLUCOSE - MCCORMICK DOCKED DEVICE Routine 10/10/2016 8:29 AM CDT documented in this encounter Results * (ABNORMAL) POCT glucose (10/10/2016 8:29 AM CDT) GLUCOSE POC 207(H) 70 - 109 10/10/2016 7:36 AM CDT [facility] LAB ORDERS INTERFACE Comment:RN Notified WHOLE BLOOD SPECIMEN / Unknown 10/10/2016 8:29 AM CDT 10/10/2016 7:36 AM CDT us Generic Conversion Md PASTRANA POCT ORDERABLES - DEVIC E Final Result [facility] LAB ORDERS INTERFACE US documented in this encounter Visit Diagnoses Not on filedocumented in this encounter
--- OUTSIDE RECORDS SUMMARY | 2024-05-10 18:12 | XMS_ITS | Encounter Summary ---
Author Organization [facility] - [facility] Address [address] [place] [address]. [place] [address] [place] [address] Care Team Providers Care High School Coordinator Name Role Phone Unavailable Primary Care Provider Unavailabl e Encounter Details Date Type Department Care Team (Late st Contact Info) Description 10/05/2016 Orders [place] [address] , Generic Conversion, Social History Tobacco Use [...] GLUCOSE - MCCORMICK DOCKED DEVICE Routine 10/05/2016 6:26 PM CDT documented in this encounter Results * (ABNORMAL) POCT glucose (10/05/2016 6:26 PM CDT) GLUCOSE POC 174(H) 70 - 109 10/05/2016 5:31 PM CDT [facility] LAB ORDERS INTERFACE WHOLE BLOOD SPECIMEN / Unknown 10/05/2016 6:26 PM CDT 10/05/2016 5:31 PM CDT us Generic Conversion Md PASTRANA POCT ORDERABLES - DEVIC E Final Result [facility] ORDERS INTERFACE US documented in this encounter Visit Diagnoses Not on filedocumented in this encounter
--- OUTSIDE RECORDS SUMMARY | 2024-05-10 18:12 | XMS_ITS | Encounter Summary ---
Author Organization [facility] Address [address] [place] [address]. [place] [address] [place] [address] Care Team Providers Care Lathe Set Up Person Name Role Phone Unavailable Primary Care Provider Unavailabl e Encounter Details Date Type Department Care Team (Late st Contact Info) Description 10/11/2016 Orders [place] [address] , Generic Conversion, Social History Tobacco Use [...] GLUCOSE - MCCORMICK DOCKED DEVICE Routine 10/11/2016 2:29 AM CDT documented in this encounter Results * (ABNORMAL) POCT glucose (10/11/2016 2:29 AM CDT) GLUCOSE POC 152(H) 70 - 109 10/11/2016 1:37 AM CDT [facility] ORDERS INTERFACE Comment:RN Notified WHOLE BLOOD SPECIMEN / Unknown 10/11/2016 2:29 AM CDT 10/11/2016 1:37 AM CDT us Generic Conversion Md PASTRANA POCT ORDERABLES - DEVIC E Final Result [facility] ORDERS INTERFACE US documented in this encounter Visit Diagnoses Not on filedocumented in this encounter
--- OUTSIDE RECORDS SUMMARY | 2024-05-10 18:12 | XMS_ITS | Encounter Summary ---
Author Organization [facility] Address [address] [place] [address]. [place] [address] [place] [address] Care Team Providers Care Home Care Aide Name Role Phone Unavailable Primary Care Provider Unavailabl e Encounter Details Date Type Department Care Team (Late st Contact Info) Description 10/09/2016 Orders Only [place] [address] , Generic Conversion, Social History Tobacco Use [...] GLUCOSE - MCCORMICK DOCKED DEVICE Routine 10/09/2016 3:05 AM CDT documented in this encounter Results * (ABNORMAL) POCT glucose (10/09/2016 3:05 AM CDT) GLUCOSE POC 166(H) 70 - 109 10/09/2016 2:10 AM CDT [facility] ORDERS INTERFACE WHOLE BLOOD SPECIMEN / Unknown 10/09/2016 3:05 AM CDT 10/09/2016 2:10 AM CDT us Generic Conversion Md PASTRANA POCT ORDERABLES - DEVIC E Final Result [facility] ORDERS INTERFACE US documented in this encounter Visit Diagnoses Not on filedocumented in this encounter
--- OUTSIDE RECORDS SUMMARY | 2024-05-10 18:12 | XMS_ITS | Encounter Summary ---
Author Organization [facility] Address [address] [place] [address]. [place] [address] [place] [address] Care Team Providers Care Developmental Education Instructor Name Role Phone Unavailable Primary Care Provider Unavailabl e Encounter Details Date Type Department Care Team (Late st Contact Info) Description 10/07/2016 Orders Only [place] [address] , Generic Conversion, Social History Tobacco Use [...] GLUCOSE - MCCORMICK DOCKED DEVICE Routine 10/07/2016 5:19 PM CDT documented in this encounter Results * (ABNORMAL) POCT glucose (10/07/2016 5:19 PM CDT) GLUCOSE POC 126(H) 70 - 109 10/07/2016 4:22 PM CDT [facility] ORDERS INTERFACE WHOLE BLOOD SPECIMEN / Unknown 10/07/2016 5:19 PM CDT 10/07/2016 4:22 PM CDT us Generic Conversion Md PASTRANA POCT ORDERABLES - DEVIC E Final Result [facility] ORDERS INTERFACE US documented in this encounter Visit Diagnoses Not on filedocumented in this encounter
--- OUTSIDE RECORDS SUMMARY | 2024-05-10 18:12 | XMS_ITS | Encounter Summary ---
Author Organization [facility] - [facility] Address [address] [place] [address]. [place] [address] [place] [address] Care Team Providers Care Lidar Scientist Name Role Phone Unavailable Primary Care Provider Unavailabl e Encounter Details Date Type Department Care Team (Late st Contact Info) Description 10/06/2016 Orders Only [place] [address] , Generic Conversion, Social History Tobacco Use [...] GLUCOSE - MCCORMICK DOCKED DEVICE Routine 10/06/2016 4:35 PM CDT documented in this encounter Results * (ABNORMAL) POCT glucose (10/06/2016 4:35 PM CDT) GLUCOSE POC 182(H) 70 - 109 10/06/2016 3:37 PM CDT [facility] ORDERS INTERFACE WHOLE BLOOD SPECIMEN / Unknown 10/06/2016 4:35 PM CDT 10/06/2016 3:37 PM CDT us Generic Conversion Md PASTRANA POCT ORDERABLES - DEVIC E Final Result [facility] ORDERS INTERFACE US documented in this encounter Visit Diagnoses Not on filedocumented in this encounter
--- OUTSIDE RECORDS SUMMARY | 2024-05-10 18:12 | XMS_ITS | Encounter Summary ---
Author Organization [facility] - [facility] Address [address] [place] [address]. [place] [address] [place] [address] Care Team Providers Care General Car Yard Supervisor Name Role Phone Unavailable Primary Care Provider Unavailabl e Encounter Details Date Type Department Care Team (Late st Contact Info) Description 10/06/2016 Orders Only [place] [address] , Generic Conversion, Social History Tobacco Use [...] GLUCOSE - MCCORMICK DOCKED DEVICE Routine 10/06/2016 6:08 AM CDT documented in this encounter Results * (ABNORMAL) POCT glucose (10/06/2016 6:08 AM CDT) GLUCOSE POC 138(H) 70 - 109 10/06/2016 5:12 AM CDT [facility] LAB ORDERS INTERFACE WHOLE BLOOD SPECIMEN / Unknown 10/06/2016 6:08 AM CDT 10/06/2016 5:10 AM CDT us Generic Conversion Md PASTRANA POCT ORDERABLES - DEVIC E Final Result [facility] LAB ORDERS INTERFACE US documented in this encounter Visit Diagnoses Not on filedocumented in this encounter
--- OUTSIDE RECORDS SUMMARY | 2024-05-10 18:12 | XMS_ITS | Encounter Summary ---
Author Organization [facility] - [facility] Address [address] [place] [address]. [place] [address] [place] [address] Care Team Providers Care Senior Vice President And Chief Information Officer Name Role Phone Unavailable Primary Care Provider Unavailabl e Encounter Details Date Type Department Care Team (Late st Contact Info) Description 10/04/2016 Orders [place] [address] , Generic Conversion, Social History Tobacco Use [...] GLUCOSE - MCCORMICK DOCKED DEVICE Routine 10/04/2016 8:15 PM CDT documented in this encounter Results * (ABNORMAL) POCT glucose (10/04/2016 8:15 PM CDT) GLUCOSE POC 189(H) 70 - 109 10/04/2016 7:17 PM CDT [facility] LAB ORDERS INTERFACE Comment:RN Notified WHOLE BLOOD SPECIMEN / Unknown 10/04/2016 8:15 PM CDT 10/04/2016 7:17 PM CDT us Generic Conversion Md PASTRANA POCT ORDERABLES - DEVIC E Final Result [facility] LAB ORDERS INTERFACE US documented in this encounter Visit Diagnoses Not on filedocumented in this encounter
--- OUTSIDE RECORDS SUMMARY | 2024-05-10 18:12 | XMS_ITS | Encounter Summary ---
Author Organization [facility] Address [address] [place] [address]. [place] [address] [place] [address] Care Team Providers Care Aircraft Electrician Name Role Phone Unavailable Primary Care Provider Unavailabl e Encounter Details Date Type Department Care Team (Latest Contact Info) Description 10/05/2016 Abstract [facility] Medical Group Social History Tobacco Use [...]
--- OUTSIDE RECORDS SUMMARY | 2024-05-10 18:12 | XMS_ITS | Encounter Summary ---
Author Organization [facility] - [facility] Address [address] [place] [address]. [place] [address] [place] [address] Care Team Providers Care Caustic Plant Worker Name Role Phone Unavailable Primary Care Provider Unavailabl e Encounter Details Date Type Department Care Team (Late st Contact Info) Description 10/07/2016 Orders Only [place] [address] , Generic Conversion, Social History Tobacco Use [...] GLUCOSE - MCCORMICK DOCKED DEVICE Routine 10/07/2016 2:12 PM CDT documented in this encounter Results * (ABNORMAL) POCT glucose (10/07/2016 2:12 PM CDT) GLUCOSE POC 181(H) 70 - 109 10/07/2016 1:13 PM CDT [facility] LAB ORDERS INTERFACE Comment:RN Notified WHOLE BLOOD SPECIMEN / Unknown 10/07/2016 2:12 PM CDT 10/07/2016 1:13 PM CDT us Generic Conversion Md PASTRANA POCT ORDERABLES - DEVIC E Final Result [facility] LAB ORDERS INTERFACE US documented in this encounter Visit Diagnoses Not on filedocumented in this encounter
--- OUTSIDE RECORDS SUMMARY | 2024-05-10 18:12 | XMS_ITS | Encounter Summary ---
Author Organization [facility] - [facility] Address [address] [place] [address]. [place] [address] [place] [address] Care Team Providers Care Novelty Twister Tender Name Role Phone Unavailable Primary Care Provider Unavailabl e Encounter Details Date Type Department Care Team (Late st Contact Info) Description 10/05/2016 Orders [place] [address] , Generic Conversion, Social History Tobacco Use [...] GLUCOSE - MCCORMICK DOCKED DEVICE Routine 10/05/2016 9:43 PM CDT documented in this encounter Results * (ABNORMAL) POCT glucose (10/05/2016 9:43 PM CDT) GLUCOSE POC 152(H) 70 - 109 10/05/2016 8:50 PM CDT [facility] LAB ORDERS INTERFACE WHOLE BLOOD SPECIMEN / Unknown 10/05/2016 9:43 PM CDT 10/05/2016 8:50 PM CDT us Generic Conversion Md PASTRANA POCT ORDERABLES - DEVIC E Final Result [facility] LAB ORDERS INTERFACE US documented in this encounter Visit Diagnoses Not on filedocumented in this encounter
--- OUTSIDE RECORDS SUMMARY | 2024-05-10 18:12 | XMS_ITS | Encounter Summary ---
Author Organization [facility] Address [address] [place] [address]. [place] [address] [place] [address] Care Team Providers Care Cotton Header Name Role Phone Unavailable Primary Care Provider Unavailabl e Encounter Details Date Type Department Care Team (Latest Contact Info) Description 10/10/2016 Abstract [facility] Medical Group Social History Tobacco [...]
--- OUTSIDE RECORDS SUMMARY | 2024-05-10 18:12 | XMS_ITS | Encounter Summary ---
Author Organization [facility] - [facility] Address [address] [place] [address]. [place] [address] [place] [address] Care Team Providers Care Storm Sash Maker Name Role Phone Unavailable Primary Care Provider Unavailabl e Encounter Details Date Type Department Care Team (Late st Contact Info) Description 10/09/2016 Orders [place] [address] , Generic Conversion, Social History Tobacco Use [...] GLUCOSE - MCCORMICK DOCKED DEVICE Routine 10/09/2016 11:10 PM CDT documented in this encounter Results * POCT glucose (10/09/2016 11:10 PM CDT) GLUCOSE POC 80 70 - 109 10/09/2016 10:12 PM CDT [facility] LAB ORDERS INTERFACE WHOLE BLOOD SPECIMEN / Unknown 10/09/2016 11:10 PM CDT 10/09/2016 10:12 PM CDT us Generic Conversion Md PASTRANA POCT ORDERABLES - DEVIC E Final Result [facility] LAB ORDERS INTERFACE US documented in this encounter Visit Diagnoses Not on filedocumented in this encounter
--- OUTSIDE RECORDS SUMMARY | 2024-05-10 18:12 | XMS_ITS | Encounter Summary ---
Author Organization [facility] - [facility] Address [address] [place] [address]. [place] [address] [place] [address] Care Team Providers Care Lining Parts Sewer Name Role Phone Unavailable Primary Care Provider Unavailabl e Encounter Details Date Type Department Care Team (Late st Contact Info) Description 10/11/2016 Orders Only [place] [address] , Generic Conversion, Social History Tobacco Use [...] GLUCOSE - MCCORMICK DOCKED DEVICE Routine 10/11/2016 4:21 PM CDT documented in this encounter Results * (ABNORMAL) POCT glucose (10/11/2016 4:21 PM CDT) GLUCOSE POC 183(H) 70 - 109 10/11/2016 3:25 PM CDT [facility] LAB ORDERS INTERFACE Comment:RN Notified WHOLE BLOOD SPECIMEN / Unknown 10/11/2016 4:21 PM CDT 10/11/2016 3:25 PM CDT us Generic Conversion Md PASTRANA POCT ORDERABLES - DEVIC E Final Result [facility] LAB ORDERS INTERFACE US documented in this encounter Visit Diagnoses Not on filedocumented in this encounter
--- OUTSIDE RECORDS SUMMARY | 2024-05-10 18:12 | XMS_ITS | Encounter Summary ---
Author Organization [facility] - [facility] Address [address] [place] [address]. [place] [address] [place] [address] Care Team Providers Care Fur Trapper Name Role Phone Unavailable Primary Care Provider Unavailabl e Encounter Details Date Type Department Care Team (Late st Contact Info) Description 10/09/2016 Orders [place] [address] , Generic Conversion, Social History Tobacco Use [...] GLUCOSE - MCCORMICK DOCKED DEVICE Routine 10/09/2016 4:46 AM CDT documented in this encounter Results * (ABNORMAL) POCT glucose (10/09/2016 4:46 AM CDT) GLUCOSE POC 167(H) 70 - 109 10/09/2016 3:49 AM CDT [facility] LAB ORDERS INTERFACE WHOLE BLOOD SPECIMEN / Unknown 10/09/2016 4:46 AM CDT 10/09/2016 3:49 AM CDT us Generic Conversion Md PASTRANA POCT ORDERABLES - DEVIC E Final Result [facility] LAB ORDERS INTERFACE US documented in this encounter Visit Diagnoses Not on filedocumented in this encounter
--- OUTSIDE RECORDS SUMMARY | 2024-05-10 18:12 | XMS_ITS | Encounter Summary ---
Author Organization [facility] Address [address] [place] [address]. [place] [address] [place] [address] Care Team Providers Care Stonemason Helper Name Role Phone Unavailable Primary Care Provider Unavailabl e Encounter Details Date Type Department Care Team (Latest Contact Info) Description 10/06/2016 Abstract [facility] Medical Group Social History Tobacco [...]
--- OUTSIDE RECORDS SUMMARY | 2024-05-10 18:12 | XMS_ITS | Encounter Summary ---
Author Organization [facility] - [facility] Address [address] [place] [address]. [place] [address] [place] [address] Care Team Providers Care Race Car Mechanic Name Role Phone Unavailable Primary Care Provider Unavailabl e Encounter Details Date Type Department Care Team (Late st Contact Info) Description 10/10/2016 Orders Only ANY CONVERSION ONE [place], [place] [id number] , Generic Conversion, Social History Tobacco Use [...] GLUCOSE - MCCORMICK DOCKED DEVICE Routine 10/10/2016 4:35 PM CDT documented in this encounter Results * (ABNORMAL) POCT glucose (10/10/2016 4:35 PM CDT) GLUCOSE POC 220(H) 70 - 109 10/10/2016 3:38 PM CDT [facility] LAB ORDERS INTERFACE WHOLE BLOOD SPECIMEN / Unknown 10/10/2016 4:35 PM CDT 10/10/2016 3:38 PM CDT us Generic Conversion Md PASTRANA POCT ORDERABLES - DEVIC E Final Result [facility] LAB ORDERS INTERFACE US documented in this encounter Visit Diagnoses Not on filedocumented in this encounter
--- OUTSIDE RECORDS SUMMARY | 2024-05-10 18:12 | XMS_ITS | Encounter Summary ---
Author Organization [facility] - [facility] Address [address] [place] [address]. [place] [address] [place] [address] Care Team Providers Care Placement Secretary Name Role Phone Unavailable Primary Care Provider Unavailabl e Encounter Details Date Type Department Care Team (Late st Contact Info) Description 10/08/2016 Orders Only [place] [address] , Generic Conversion, Social History Tobacco Use [...] GLUCOSE - MCCORMICK DOCKED DEVICE Routine 10/08/2016 12:50 PM CDT documented in this encounter Results * (ABNORMAL) POCT glucose (10/08/2016 12:50 PM CDT) GLUCOSE POC 227(H) 70 - 109 10/08/2016 11:53 AM CDT [facility] LAB ORDERS INTERFACE WHOLE BLOOD SPECIMEN / Unknown 10/08/2016 12:50 PM CDT 10/08/2016 11:53 AM CDT us Generic Conversion Md PASTRANA POCT ORDERABLES - DEVIC E Final Result [facility] LAB ORDERS INTERFACE US documented in this encounter Visit Diagnoses Not on filedocumented in this encounter
--- OUTSIDE RECORDS SUMMARY | 2024-05-10 18:12 | XMS_ITS | Encounter Summary ---
Author Organization [facility] - [facility] Address [address] [place] [address]. [place] [address] [place] [address] Care Team Providers Care Crnp Name Role Phone Unavailable Primary Care Provider Unavailabl e Encounter Details Date Type Department Care Team (Late st Contact Info) Description 10/06/2016 Orders [place] [address] , Generic Conversion, Social History Tobacco Use [...] GLUCOSE - MCCORMICK DOCKED DEVICE Routine 10/06/2016 9:49 AM CDT documented in this encounter Results * (ABNORMAL) POCT glucose (10/06/2016 9:49 AM CDT) GLUCOSE POC 177(H) 70 - 109 10/06/2016 11:08 AM CDT [facility] LAB ORDERS INTERFACE WHOLE BLOOD SPECIMEN / Unknown 10/06/2016 9:49 AM CDT 10/06/2016 11:08 AM CDT us Generic Conversion Md PASTRANA POCT ORDERABLES - DEVIC E Final Result [facility] LAB ORDERS INTERFACE US documented in this encounter Visit Diagnoses Not on filedocumented in this encounter
--- OUTSIDE RECORDS SUMMARY | 2024-05-10 18:12 | XMS_ITS | Encounter Summary ---
Author Organization [facility] - [facility] Address [address] [place] [address]. [place] [address] [place] [address] Care Team Providers Care Merchandise Appraiser Name Role Phone Unavailable Primary Care Provider Unavailabl e Encounter Details Date Type Department Care Team (Late st Contact Info) Description 10/05/2016 Orders Only [place] [address] , Generic Conversion, Social History Tobacco Use [...] GLUCOSE - MCCORMICK DOCKED DEVICE Routine 10/05/2016 5:08 AM CDT documented in this encounter Results * (ABNORMAL) POCT glucose (10/05/2016 5:08 AM CDT) GLUCOSE POC 128(H) 70 - 109 10/05/2016 4:39 AM CDT [facility] LAB ORDERS INTERFACE WHOLE BLOOD SPECIMEN / Unknown 10/05/2016 5:08 AM CDT 10/05/2016 4:39 AM CDT us Generic Conversion Md PASTRANA POCT ORDERABLES - DEVIC E Final Result [facility] LAB ORDERS INTERFACE US documented in this encounter Visit Diagnoses Not on filedocumented in this encounter
--- OUTSIDE RECORDS SUMMARY | 2024-05-10 18:12 | XMS_ITS | Encounter Summary ---
Author Organization [facility] - [facility] Address [address] [place] [address]. [place] [address] [place] [address] Care Team Providers Care Cable Tower Operator Name Role Phone Unavailable Primary Care Provider Unavailabl e Encounter Details Date Type Department Care Team (Late st Contact Info) Description 10/10/2016 Orders Only ANY CONVERSION ONE [place], [place] [id number] , Generic Conversion, Social History Tobacco Use [...] GLUCOSE - MCCORMICK DOCKED DEVICE Routine 10/10/2016 1:29 PM CDT documented in this encounter Results * (ABNORMAL) POCT glucose (10/10/2016 1:29 PM CDT) GLUCOSE POC 197(H) 70 - 109 10/10/2016 12:31 PM CDT [facility] LAB ORDERS INTERFACE Comment:RN Notified WHOLE BLOOD SPECIMEN / Unknown 10/10/2016 1:29 PM CDT 10/10/2016 12:31 PM CDT us Generic Conversion Md PASTRANA POCT ORDERABLES - DEVIC E Final Result [facility] LAB ORDERS INTERFACE US documented in this encounter Visit Diagnoses Not on filedocumented in this encounter
--- OUTSIDE RECORDS SUMMARY | 2024-05-10 18:12 | XMS_ITS | Encounter Summary ---
Author Organization [facility] - [facility] Address [address] [place] [address]. [place] [address] [place] [address] Care Team Providers Care Main Line Station Engineer Name Role Phone Unavailable Primary Care Provider Unavailabl e Encounter Details Date Type Department Care Team (Late st Contact Info) Description 10/07/2016 Orders [place] [address] , Generic Conversion, Social History Tobacco Use [...] Date/Time Associated Diagnosis Comments POCT GLUCOSE - MCCORIMCK DOCKED DEVICE Routine 10/07/2016 12:04 PM CDT documented in this encounter Results * (ABNORMAL) POCT glucose (10/07/2016 12:04 PM CDT) GLUCOSE POC 192(H) 70 - 109 10/07/2016 11:07 AM CDT [facility] LAB ORDERS INTERFACE Comment:RN Notified WHOLE BLOOD SPECIMEN / Unknown 10/07/2016 12:04 PM CDT 10/07/2016 11:06 AM CDT us Generic Conversion Md PASTRANA POCT ORDERABLES - DEVIC E Final Result [facility] LAB ORDERS INTERFACE US documented in this encounter Visit Diagnoses Not on filedocumented in this encounter
--- OUTSIDE RECORDS SUMMARY | 2024-05-10 18:12 | XMS_ITS | Encounter Summary ---
Author Organization [facility] Address [address] [place] [address]. [place] [address] [place] [address] Care Team Providers Care Filtering Machine Tender Name Role Phone Unavailable Primary Care Provider Unavailabl e Encounter Details Date Type Department Care Team (Late st Contact Info) Description 10/07/2016 Orders Only ANY CONVERSION ONE [place], [place] [id number] , Generic Conversion, Social History Tobacco Use [...] Associated Diagnosis Comments TYPE & SCREEN TIMED 10/07/2016 5:36 AM CDT documented in this encounter Results * TYPE & SCREEN (10/07/2016 5:36 AM CDT) ABO/RH O POSITIVE 10/07/2016 6:12 AM CDT [facility] ANTIBODY SCREEN NEGATIVE 7 6:12 AM CDT [facility] SAMPLE EXPIRATION 10/10/2016 10/07/2016 5:12 AM CDT [facility] BABY RH O POSITIVE 10/10/2016 11:59 AM CDT [facility] DIRECT JASEN-IGG NEGATIVE 10/10/2016 11:59 AM CDT [facility] PATIENT ID [id number] 10/10/2016 11:59 AM CDT [facility] 10/07/2016 5:36 AM CDT 10/07/2016 4:39 AM CDT us Generic Conversion Md PASTRANA BLOOD BANK TEST ORDERAB LES Final Result [facility] [address] [place] [address], [place] [phone] [id number] documented in this encounter Visit Diagnoses Not on filedocumented in this encounter
--- OUTSIDE RECORDS SUMMARY | 2024-05-10 18:12 | XMS_ITS | Encounter Summary ---
Author Organization [facility] - [facility] Address [address] [place] [address]. [place] [address] [place] [address] Care Team Providers Care Mud Analysis Supervisor Name Role Phone Unavailable Primary Care Provider Unavailabl e Encounter Details Date Type Department Care Team (Late st Contact Info) Description 10/07/2016 Orders [place] [address] , Generic Conversion, Social History Tobacco Use [...] GLUCOSE - MCCORMICK DOCKED DEVICE Routine 10/07/2016 5:54 AM CDT documented in this encounter Results * (ABNORMAL) POCT glucose (10/07/2016 5:54 AM CDT) GLUCOSE POC 120(H) 70 - 109 10/07/2016 4:59 AM CDT [facility] LAB ORDERS INTERFACE WHOLE BLOOD SPECIMEN / Unknown 10/07/2016 5:54 AM CDT 10/07/2016 4:59 AM CDT us Generic Conversion Md PASTRANA POCT ORDERABLES - DEVIC E Final Result [facility] LAB ORDERS INTERFACE US documented in this encounter Visit Diagnoses Not on filedocumented in this encounter
--- OUTSIDE RECORDS SUMMARY | 2024-05-10 18:12 | XMS_ITS | Encounter Summary ---
Author Organization [facility] Address [address] [place] [address]. [place] [address] [place] [address] Care Team Providers Care Knifeman Name Role Phone Unavailable Primary Care Provider Unavailabl e Encounter Details Date Type Department Care Team (Late st Contact Info) Description 10/11/2016 Orders Only ANY CONVERSION ONE [place], [place] [id number] , Generic Conversion, Social History Tobacco Use [...] GLUCOSE - MCCORMICK DOCKED DEVICE Routine 10/11/2016 7:45 PM CDT documented in this encounter Results * (ABNORMAL) POCT glucose (10/11/2016 7:45 PM CDT) GLUCOSE POC 204(H) 70 - 109 10/11/2016 7:07 PM CDT [facility] LAB ORDERS INTERFACE Comment:RN Notified WHOLE BLOOD SPECIMEN / Unknown 10/11/2016 7:45 PM CDT 10/11/2016 7:07 PM CDT us Generic Conversion Md PASTRANA POCT ORDERABLES - DEVIC E Final Result [facility] LAB ORDERS INTERFACE US documented in this encounter Visit Diagnoses Not on filedocumented in this encounter
--- OUTSIDE RECORDS SUMMARY | 2024-05-10 18:12 | XMS_ITS | Encounter Summary ---
Author Organization [facility] - [facility] Address [address] [place] [address]. [place] [address] [place] [address] Care Team Providers Care Minute Clerk Name Role Phone Unavailable Primary Care Provider Unavailabl e Encounter Details Date Type Department Care Team (Late st Contact Info) Description 10/10/2016 Orders Only [place] [address] , Generic Conversion, Social History Tobacco Use [...] GLUCOSE - MCCORMICK DOCKED DEVICE Routine 10/10/2016 11:08 PM CDT documented in this encounter Results * (ABNORMAL) POCT glucose (10/10/2016 11:08 PM CDT) GLUCOSE POC 184(H) 70 - 109 10/10/2016 10:41 PM CDT [facility] LAB ORDERS INTERFACE Comment:RN Notified WHOLE BLOOD SPECIMEN / Unknown 10/10/2016 11:08 PM CDT 10/10/2016 10:41 PM CDT us Generic Conversion Md PASTRANA POCT ORDERABLES - DEVIC E Final Result [facility] LAB ORDERS INTERFACE US documented in this encounter Visit Diagnoses Not on filedocumented in this encounter
--- OUTSIDE RECORDS SUMMARY | 2024-05-10 18:12 | XMS_ITS | Encounter Summary ---
Author Organization [facility] - [facility] Address [address] [place] [address]. [place] [address] [place] [address] Care Team Providers Care Rubber Tubing Splicer Name Role Phone Unavailable Primary Care Provider Unavailabl e Encounter Details Date Type Department Care Team (Late st Contact Info) Description 10/09/2016 Orders Only [place] [address] , Generic Conversion, Social History Tobacco Use [...] GLUCOSE - MCCORMICK DOCKED DEVICE Routine 10/09/2016 12:50 PM CDT documented in this encounter Results * (ABNORMAL) POCT glucose (10/09/2016 12:50 PM CDT) GLUCOSE POC 175(H) 70 - 109 10/09/2016 12:39 PM CDT [facility] LAB ORDERS INTERFACE WHOLE BLOOD SPECIMEN / Unknown 10/09/2016 12:50 PM CDT 10/09/2016 12:38 PM CDT us Generic Conversion Md PASTRANA POCT ORDERABLES - DEVIC E Final Result [facility] LAB ORDERS INTERFACE US documented in this encounter Visit Diagnoses Not on filedocumented in this encounter
--- OUTSIDE RECORDS SUMMARY | 2024-05-10 18:12 | XMS_ITS | Encounter Summary ---
Author Organization [facility] - [facility] Address [address] [place] [address]. [place] [address] [place] [address] Care Team Providers Care Barometers Calibrator Name Role Phone Unavailable Primary Care Provider Unavailabl e Encounter Details Date Type Department Care Team (Late st Contact Info) Description 10/10/2016 Orders [place] [address] , Generic Conversion, Social History Tobacco Use [...] GLUCOSE - MCCORMICK DOCKED DEVICE Routine 10/10/2016 2:06 AM CDT documented in this encounter Results * (ABNORMAL) POCT glucose (10/10/2016 2:06 AM CDT) GLUCOSE POC 150(H) 70 - 109 10/10/2016 3:38 AM CDT [facility] LAB ORDERS INTERFACE WHOLE BLOOD SPECIMEN / Unknown 10/10/2016 2:06 AM CDT 10/10/2016 3:38 AM CDT us Generic Conversion Md PASTRANA POCT ORDERABLES - DEVIC E Final Result [facility] LAB ORDERS INTERFACE US documented in this encounter Visit Diagnoses Not on filedocumented in this encounter
--- OUTSIDE RECORDS SUMMARY | 2024-05-10 18:12 | XMS_ITS | Encounter Summary ---
Author Organization [facility] - [facility] Address [address] [place] [address]. [place] [address] [place] [address] Care Team Providers Care Clipping Marker Name Role Phone Unavailable Primary Care Provider Unavailabl e Encounter Details Date Type Department Care Team (Late st Contact Info) Description 10/09/2016 Orders [place] [address] , Generic Conversion, Social History Tobacco Use [...] GLUCOSE - MCCORMICK DOCKED DEVICE Routine 10/09/2016 6:07 PM CDT documented in this encounter Results * (ABNORMAL) POCT glucose (10/09/2016 6:07 PM CDT) GLUCOSE POC 69(L) 70 - 109 10/09/2016 5:09 PM CDT [facility] LAB ORDERS INTERFACE WHOLE BLOOD SPECIMEN / Unknown 10/09/2016 6:07 PM CDT 10/09/2016 5:09 PM CDT us Generic Conversion Md PASTRANA POCT ORDERABLES - DEVIC E Final Result [facility] LAB ORDERS INTERFACE US documented in this encounter Visit Diagnoses Not on filedocumented in this encounter
--- OUTSIDE RECORDS SUMMARY | 2024-05-10 18:12 | XMS_ITS | Encounter Summary ---
Author Organization [facility] - [facility] Address [address] [place] [address]. [place] [address] [place] [address] Care Team Providers Care Spar Cap Beveler Name Role Phone Unavailable Primary Care Provider Unavailabl e Encounter Details Date Type Department Care Team (Late st Contact Info) Description 10/06/2016 Orders [place] [address] , Generic Conversion, Social History Tobacco Use [...] GLUCOSE - MCCORMICK DOCKED DEVICE Routine 10/06/2016 6:55 PM CDT documented in this encounter Results * (ABNORMAL) POCT glucose (10/06/2016 6:55 PM CDT) GLUCOSE POC 133(H) 70 - 109 10/06/2016 5:57 PM CDT [facility] LAB ORDERS INTERFACE WHOLE BLOOD SPECIMEN / Unknown 10/06/2016 6:55 PM CDT 10/06/2016 5:57 PM CDT us Generic Conversion Md PASTRANA POCT ORDERABLES - DEVIC E Final Result [facility] LAB ORDERS INTERFACE US documented in this encounter Visit Diagnoses Not on filedocumented in this encounter
--- OUTSIDE RECORDS SUMMARY | 2024-05-10 18:12 | XMS_ITS | Encounter Summary ---
Author Organization [facility] - [facility] Address [address] [place] [address]. [place] [address] [place] [address] Care Team Providers Care Conference Concierge Name Role Phone Unavailable Primary Care Provider Unavailabl e Encounter Details Date Type Department Care Team (Late st Contact Info) Description 10/10/2016 Orders Only [place] [address] , Generic Conversion, Social History Tobacco Use [...] GLUCOSE - MCCORMICK DOCKED DEVICE Routine 10/10/2016 1:10 AM CDT documented in this encounter Results * (ABNORMAL) POCT glucose (10/10/2016 1:10 AM CDT) GLUCOSE POC 111(H) 70 - 109 10/10/2016 12:12 AM CDT [facility] LAB ORDERS INTERFACE WHOLE BLOOD SPECIMEN / Unknown 10/10/2016 1:10 AM CDT 10/10/2016 12:12 AM CDT us Generic Conversion Md PASTRANA POCT ORDERABLES - DEVIC E Final Result [facility] LAB ORDERS INTERFACE US documented in this encounter Visit Diagnoses Not on filedocumented in this encounter
--- OUTSIDE RECORDS SUMMARY | 2024-05-10 18:12 | XMS_ITS | Encounter Summary ---
Author Organization [facility] - [facility] Address [address] [place] [address]. [place] [address] [place] [address] Care Team Providers Care Wholesale Account Manager Name Role Phone Unavailable Primary Care Provider Unavailabl e Encounter Details Date Type Department Care Team (Late st Contact Info) Description 10/05/2016 Orders [place] [address] , Generic Conversion, Social History Tobacco Use [...] GLUCOSE - MCCORMICK DOCKED DEVICE Routine 10/05/2016 9:57 AM CDT documented in this encounter Results * (ABNORMAL) POCT glucose (10/05/2016 9:57 AM CDT) GLUCOSE POC 160(H) 70 - 109 10/05/2016 9:13 AM CDT [facility] LAB ORDERS INTERFACE Comment:RN Notified WHOLE BLOOD SPECIMEN / Unknown 10/05/2016 9:57 AM CDT 10/05/2016 9:12 AM CDT us Generic Conversion Md PASTRANA POCT ORDERABLES - DEVIC E Final Result [facility] LAB ORDERS INTERFACE US documented in this encounter Visit Diagnoses Not on filedocumented in this encounter
--- OUTSIDE RECORDS SUMMARY | 2024-05-10 18:12 | XMS_ITS | Encounter Summary ---
Author Organization [facility] Address [address] [place] [address]. [place] [address] [place] [address] Care Team Providers Care Tankman Name Role Phone Unavailable Primary Care Provider Unavailabl e Encounter Details Date Type Department Care Team (Latest Contact Info) Description 10/08/2016 Abstract [facility] Medical [facility] Social History Tobacco Use [...]
--- OUTSIDE RECORDS SUMMARY | 2024-05-10 18:12 | XMS_ITS | Encounter Summary ---
Author Organization [facility] - [facility] Address [address] [place] [address]. [place] [address] [place] [address] Care Team Providers Care Marketing Pr Intern Name Role Phone Unavailable Primary Care Provider Unavailabl e Encounter Details Date Type Department Care Team (Late st Contact Info) Description 10/09/2016 Orders [place] [address] , Generic Conversion, Social History Tobacco Use [...] GLUCOSE - MCCORMICK DOCKED DEVICE Routine 10/09/2016 10:21 AM CDT documented in this encounter Results * (ABNORMAL) POCT glucose (10/09/2016 10:21 AM CDT) GLUCOSE POC 172(H) 70 - 109 10/09/2016 9:23 AM CDT [facility] LAB ORDERS INTERFACE WHOLE BLOOD SPECIMEN / Unknown 10/09/2016 10:21 AM CDT 10/09/2016 9:23 AM CDT us Generic Conversion Md PASTRANA POCT ORDERABLES - DEVIC E Final Result [facility] LAB ORDERS INTERFACE US documented in this encounter Visit Diagnoses Not on filedocumented in this encounter
--- OUTSIDE RECORDS SUMMARY | 2024-05-10 18:12 | XMS_ITS | Encounter Summary ---
Author Organization [facility] - [facility] Address [address] [place] [address]. [place] [address] [place] [address] Care Team Providers Care Peoplesoft Name Role Phone Unavailable Primary Care Provider Unavailabl e Encounter Details Date Type Department Care Team (Late st Contact Info) Description 10/09/2016 Orders [place] [address] , Generic Conversion, Social History Tobacco Use [...] GLUCOSE - MCCORMICK DOCKED DEVICE Routine 10/09/2016 11:14 AM CDT documented in this encounter Results * (ABNORMAL) POCT glucose (10/09/2016 11:14 AM CDT) GLUCOSE POC 183(H) 70 - 109 10/09/2016 10:17 AM CDT [facility] LAB ORDERS INTERFACE WHOLE BLOOD SPECIMEN / Unknown 10/09/2016 11:14 AM CDT 10/09/2016 10:17 AM CDT us Generic Conversion Md PASTRANA POCT ORDERABLES - DEVIC E Final Result [facility] LAB ORDERS INTERFACE US documented in this encounter Visit Diagnoses Not on filedocumented in this encounter
--- OUTSIDE RECORDS SUMMARY | 2024-05-10 18:12 | XMS_ITS | Encounter Summary ---
Author Organization [facility] - [facility] Address [address] [place] [address]. [place] [address] [place] [address] Care Team Providers Care Watch Repair Person Name Role Phone Unavailable Primary Care Provider Unavailabl e Encounter Details Date Type Department Care Team (Late st Contact Info) Description 10/05/2016 Orders [place] [address] , Generic Conversion, Social History Tobacco Use [...] GLUCOSE - MCCORMICK DOCKED DEVICE Routine 10/05/2016 2:06 PM CDT documented in this encounter Results * (ABNORMAL) POCT glucose (10/05/2016 2:06 PM CDT) GLUCOSE POC 173(H) 70 - 109 10/05/2016 1:07 PM CDT [facility] LAB ORDERS INTERFACE WHOLE BLOOD SPECIMEN / Unknown 10/05/2016 2:06 PM CDT 10/05/2016 1:07 PM CDT us Generic Conversion Md PASTRANA POCT ORDERABLES - DEVIC E Final Result [facility] LAB ORDERS INTERFACE US documented in this encounter Visit Diagnoses Not on filedocumented in this encounter
--- OUTSIDE RECORDS SUMMARY | 2024-05-10 18:12 | XMS_ITS | Encounter Summary ---
Author Organization [facility] Address [address] [place] [address]. [place] [address] [place] [address] Care Team Providers Care Program Coordinator Executive Education Name Role Phone Unavailable Primary Care Provider Unavailabl e Encounter Details Date Type Department Care Team (Latest Contact Info) Description 10/09/2016 Abstract [facility] Medical Group Social [...]
--- OUTSIDE RECORDS SUMMARY | 2024-05-10 18:12 | XMS_ITS | Encounter Summary ---
Author Organization [facility] - [facility] Address [address] [place] [address]. [place] [address] [place] [address] Care Team Providers Care Liquor Blender Name Role Phone Unavailable Primary Care Provider Unavailabl e Encounter Details Date Type Department Care Team (Late st Contact Info) Description 10/05/2016 Orders Only [place] [address] , Generic Conversion, Social History Tobacco Use [...] GLUCOSE - MCCORMICK DOCKED DEVICE Routine 10/05/2016 12:33 PM CDT documented in this encounter Results * (ABNORMAL) POCT glucose (10/05/2016 12:33 PM CDT) GLUCOSE POC 238(H) 70 - 109 10/05/2016 11:34 AM CDT [facility] LAB ORDERS INTERFACE WHOLE BLOOD SPECIMEN / Unknown 10/05/2016 12:33 PM CDT 10/05/2016 11:34 AM CDT us Generic Conversion Md PASTRANA POCT ORDERABLES - DEVIC E Final Result [facility] LAB ORDERS INTERFACE US documented in this encounter Visit Diagnoses Not on filedocumented in this encounter
--- OUTSIDE RECORDS SUMMARY | 2024-05-10 18:12 | XMS_ITS | Encounter Summary ---
Author Organization [facility] - [facility] Address [address] [place] [address]. [place] [address] [place] [address] Care Team Providers Care Diamond Cleaver Name Role Phone Unavailable Primary Care Provider Unavailabl e Encounter Details Date Type Department Care Team (Late st Contact Info) Description 10/08/2016 Orders [place] [address] , Generic Conversion, Social History Tobacco Use [...] GLUCOSE - MCCORMICK DOCKED DEVICE Routine 10/08/2016 7:18 PM CDT documented in this encounter Results * POCT glucose (10/08/2016 7:18 PM CDT) GLUCOSE POC 105 70 - 109 10/08/2016 6:49 PM CDT [facility] LAB ORDERS INTERFACE Comment:RN Notified WHOLE BLOOD SPECIMEN / Unknown 10/08/2016 7:18 PM CDT 10/08/2016 6:49 PM CDT us Generic Conversion Md PASTRANA POCT ORDERABLES - DEVIC E Final Result [facility] LAB ORDERS INTERFACE US documented in this encounter Visit Diagnoses Not on filedocumented in this encounter
--- OUTSIDE RECORDS SUMMARY | 2024-05-10 18:12 | XMS_ITS | Encounter Summary ---
Author Organization [facility] - [facility] Address [address] [place] [address]. [place] [address] [place] [address] Care Team Providers Care Branch Service Representative Name Role Phone Unavailable Primary Care Provider Unavailabl e Encounter Details Date Type Department Care Team (Late st Contact Info) Description 10/08/2016 Orders Only [place] [address] , Generic Conversion, Social History Tobacco Use [...] GLUCOSE - MCCORMICK DOCKED DEVICE Routine 10/08/2016 9:52 AM CDT documented in this encounter Results * (ABNORMAL) POCT glucose (10/08/2016 9:52 AM CDT) GLUCOSE POC 178(H) 70 - 109 10/08/2016 8:53 AM CDT [facility] LAB ORDERS INTERFACE Comment:RN Notified WHOLE BLOOD SPECIMEN / Unknown 10/08/2016 9:52 AM CDT 10/08/2016 8:53 AM CDT us Generic Conversion Md PASTRANA POCT ORDERABLES - DEVIC E Final Result [facility] LAB ORDERS INTERFACE US documented in this encounter Visit Diagnoses Not on filedocumented in this encounter
--- OUTSIDE RECORDS SUMMARY | 2024-05-10 18:12 | XMS_ITS | Encounter Summary ---
Author Organization [facility] - [facility] Address [address] [place] [address]. [place] [address] [place] [address] Care Team Providers Care Automation Tester Name Role Phone Unavailable Primary Care Provider Unavailabl e Encounter Details Date Type Department Care Team (Late st Contact Info) Description 10/06/2016 Orders Only [place] [address] , Generic Conversion, Social History Tobacco Use [...] GLUCOSE - MCCORMICK DOCKED DEVICE Routine 10/06/2016 3:06 AM CDT documented in this encounter Results * (ABNORMAL) POCT glucose (10/06/2016 3:06 AM CDT) GLUCOSE POC 134(H) 70 - 109 10/06/2016 4:58 AM CDT [facility] LAB ORDERS INTERFACE WHOLE BLOOD SPECIMEN / Unknown 10/06/2016 3:06 AM CDT 10/06/2016 4:58 AM CDT us Generic Conversion Md PASTRANA POCT ORDERABLES - DEVIC E Final Result [facility] LAB ORDERS INTERFACE US documented in this encounter Visit Diagnoses Not on filedocumented in this encounter
--- OUTSIDE RECORDS SUMMARY | 2024-05-10 18:12 | XMS_ITS | Encounter Summary ---
Author Organization [facility] - [facility] Address [address] [place] [address]. [place] [address] [place] [address] Care Team Providers Care Parking Lot Signaler Name Role Phone Unavailable Primary Care Provider Unavailabl e Encounter Details Date Type Department Care Team (Late st Contact Info) Description 10/11/2016 Orders [place] [address] , Generic Conversion, Social History Tobacco Use [...] GLUCOSE - MCCORMICK DOCKED DEVICE Routine 10/11/2016 6:09 AM CDT documented in this encounter Results * (ABNORMAL) POCT glucose (10/11/2016 6:09 AM CDT) GLUCOSE POC 173(H) 70 - 109 10/11/2016 6:31 AM CDT [facility] LAB ORDERS INTERFACE Comment:RN Notified WHOLE BLOOD SPECIMEN / Unknown 10/11/2016 6:09 AM CDT 10/11/2016 6:31 AM CDT us Generic Conversion Md PASTRANA POCT ORDERABLES - DEVIC E Final Result [facility] LAB ORDERS INTERFACE US documented in this encounter Visit Diagnoses Not on filedocumented in this encounter
--- OUTSIDE RECORDS SUMMARY | 2024-05-10 18:12 | XMS_ITS | Encounter Summary ---
Author Organization [facility] Address [address] [place] [address]. [place] [address] [place] [address] Care Team Providers Care Teasel Gig Operator Name Role Phone Unavailable Primary Care Provider Unavailabl e Encounter Details Date Type Department Care Team (Late st Contact Info) Description 10/11/2016 Orders [place] [address] , Generic Conversion, Social History [...] Date/Time Associated Diagnosis Comments CBC W/DIFF AUTOMATED TIMED 10/11/2016 5:57 AM CDT documented in this encounter Results * (ABNORMAL) CBC W/DIFF AUTOMATED (10/11/2016 5:57 AM CDT) WBC 17.0(H) 4.0 - 10.8 x10'3/uL 10/11/2016 5:23 AM CDT [facility] RBC 3.61(L) 4.10 - 5.40 x10'6/uL 10/11/2016 5:23 AM CDT [facility] HGB 10.0(L) 12.0 - 16.0 G/DL 10/11/2016 5:23 AM CDT [facility] HCT 29.6(L) 36.0 - 47.0 % 10/11/2016 5:23 AM CDT [facility] MCV 82.0 78.0 - 100.0 FL 10/11/2016 5:23 AM CDT [facility] MCH 27.7 27.0 - 31.0 PG 10/11/2016 5:23 AM CDT [facility] MCHC 33.8 33.0 - 36.0 G/DL 10/11/2016 5:23 AM CDT [facility] RDW 13.9 11.5 - 14.5 % 10/11/2016 5:23 AM CDT [facility] PLT 233 150 - 350 x10'3/uL 10/11/2016 5:23 AM CDT [facility] MPV 11.1(H) 7.4 - 10.4 FL 10/11/2016 5:23 AM CDT [facility] ABS. NEUTROPHILS TOTAL 12.66(H) 1.60 - 8.30 x10'3/uL 10/11/2016 5:23 AM CDT [facility] ABS. LYMPHOCYTES 2.89 0.80 - 4.70 x10'3/uL 10/11/2016 5:23 AM CDT [facility] ABS. MONOCYTES 1.24 0.00 - 1.50 x10'3/uL 10/11/2016 5:23 AM CDT [facility] ABS. EOSINOPHILS 0.05 0.00 - 0.40 x10'3/uL 10/11/2016 5:23 AM CDT [facility] ABS. BASOPHILS 0.04 0.00 - 0.20 x10'3/uL 10/11/2016 5:23 AM CDT [facility] ABS. IMMATURE GRANULOCYTES 0.14(H) 0.00 - 0.03 x10'3/uL 10/11/2016 5:23 AM CDT [facility] ABS. NUCLEATED RBC'S 0.00 0.0 x10'3/uL 10/11/2016 5:23 AM CDT [facility] PLASMA SPECIMEN / Unknown 10/11/2016 5:57 AM CDT 10/11/2016 4:58 AM CDT us Generic Conversion Md PASTRANA LABORATORY Final R esult [facility] [address] [place] [address], [id number] documented in this encounter Visit Diagnoses Not on filedocumented in this encounter
--- OUTSIDE RECORDS SUMMARY | 2024-05-10 18:12 | XMS_ITS | Encounter Summary ---
Author Organization [facility] - [facility] Address [address] [place] [address]. [place] [address] [place] [address] Care Team Providers Care Toll Settlement Clerk Name Role Phone Unavailable Primary Care Provider Unavailabl e Encounter Details Date Type Department Care Team (Late st Contact Info) Description 10/06/2016 Orders [place] [address] , Generic Conversion, Social History Tobacco Use [...] GLUCOSE - MCCORMICK DOCKED DEVICE Routine 10/06/2016 9:33 PM CDT documented in this encounter Results * (ABNORMAL) POCT glucose (10/06/2016 9:33 PM CDT) GLUCOSE POC 162(H) 70 - 109 10/06/2016 8:35 PM CDT [facility] LAB ORDERS INTERFACE WHOLE BLOOD SPECIMEN / Unknown 10/06/2016 9:33 PM CDT 10/06/2016 8:35 PM CDT us Generic Conversion Md PASTRANA POCT ORDERABLES - DEVIC E Final Result [facility] LAB ORDERS INTERFACE US documented in this encounter Visit Diagnoses Not on filedocumented in this encounter
--- OUTSIDE RECORDS SUMMARY | 2024-05-10 18:12 | XMS_ITS | Encounter Summary ---
Author Organization [facility] Address [address] [place] [address]. [place] [address] [place] [address] Care Team Providers Care Glazier Apprentice Name Role Phone Unavailable Primary Care Provider Unavailabl e Encounter Details Date Type Department Care Team (Late st Contact Info) Description 10/11/2016 Orders [place] [address] , Generic Conversion, Social History Tobacco Use [...] GLUCOSE - MCCORMICK DOCKED DEVICE Routine 10/11/2016 1:34 PM CDT documented in this encounter Results * (ABNORMAL) POCT glucose (10/11/2016 1:34 PM CDT) GLUCOSE POC 183(H) 70 - 109 10/11/2016 12:37 PM CDT [facility] LAB ORDERS INTERFACE Comment:RN Notified WHOLE BLOOD SPECIMEN / Unknown 10/11/2016 1:34 PM CDT 10/11/2016 12:37 PM CDT us Generic Conversion Md PASTRANA POCT ORDERABLES - DEVIC E Final Result [facility] LAB ORDERS INTERFACE US documented in this encounter Visit Diagnoses Not on filedocumented in this encounter
--- OUTSIDE RECORDS SUMMARY | 2024-05-10 18:12 | XMS_ITS | Encounter Summary ---
Author Organization [facility] Address [address] [place] [address]. [place] [address] [place] [address] Care Team Providers Care Women'S Basketball Coach Name Role Phone Unavailable Primary Care Provider Unavailabl e Encounter Details Date Type Department Care Team (Late st Contact Info) Description 10/08/2016 Orders [place] [address] , Generic Conversion, Social History Tobacco Use [...] GLUCOSE - MCCORMICK DOCKED DEVICE Routine 10/08/2016 2:34 PM CDT documented in this encounter Results * (ABNORMAL) POCT glucose (10/08/2016 2:34 PM CDT) GLUCOSE POC 135(H) 70 - 109 10/08/2016 1:38 PM CDT [facility] LAB ORDERS INTERFACE WHOLE BLOOD SPECIMEN / Unknown 10/08/2016 2:34 PM CDT 10/08/2016 1:36 PM CDT us Generic Conversion Md PASTRANA POCT ORDERABLES - DEVIC E Final Result [facility] LAB ORDERS INTERFACE US documented in this encounter Visit Diagnoses Not on filedocumented in this encounter
--- OUTSIDE RECORDS SUMMARY | 2024-05-10 18:12 | XMS_ITS | Encounter Summary ---
Author Organization [facility] Address [address] [place] [address]. [place] [address] [place] [address] Care Team Providers Care Fiber Heel Piece Shaper Name Role Phone Unavailable Primary Care Provider Unavailabl e Encounter Details Date Type Department Care Team (Late st Contact Info) Description 10/09/2016 Orders Only ANY CONVERSION ONE [place], [place] [id number] , Generic Conversion, Social History Tobacco Use [...] GLUCOSE - MCCORMICK DOCKED DEVICE Routine 10/09/2016 9:15 PM CDT documented in this encounter Results * (ABNORMAL) POCT glucose (10/09/2016 9:15 PM CDT) GLUCOSE POC 116(H) 70 - 109 10/09/2016 8:17 PM CDT [facility] LAB ORDERS INTERFACE WHOLE BLOOD SPECIMEN / Unknown 10/09/2016 9:15 PM CDT 10/09/2016 8:17 PM CDT us Generic Conversion Md PASTRANA POCT ORDERABLES - DEVIC E Final Result [facility] LAB ORDERS INTERFACE US documented in this encounter Visit Diagnoses Not on filedocumented in this encounter
--- OUTSIDE RECORDS SUMMARY | 2024-05-10 18:12 | XMS_ITS | Encounter Summary ---
Author Organization [facility] - [facility] Address [address] [place] [address]. [place] [address] [place] [address] Care Team Providers Care Accounts Payable Professional Name Role Phone Unavailable Primary Care Provider Unavailabl e Encounter Details Date Type Department Care Team (Late st Contact Info) Description 10/09/2016 Orders [place] [address] , Generic Conversion, Social History Tobacco Use [...] GLUCOSE - MCCORMICK DOCKED DEVICE Routine 10/09/2016 7:27 AM CDT documented in this encounter Results * POCT glucose (10/09/2016 7:27 AM CDT) GLUCOSE POC 91 70 - 109 10/09/2016 6:29 AM CDT [facility] LAB ORDERS INTERFACE WHOLE BLOOD SPECIMEN / Unknown 10/09/2016 7:27 AM CDT 10/09/2016 6:29 AM CDT us Generic Conversion Md PASTRANA POCT ORDERABLES - DEVIC E Final Result [facility] LAB ORDERS INTERFACE US documented in this encounter Visit Diagnoses Not on filedocumented in this encounter
--- OUTSIDE RECORDS SUMMARY | 2024-05-10 18:12 | XMS_ITS | Encounter Summary ---
Author Organization [facility] - [facility] Address [address] [place] [address]. [place] [address] [place] [address] Care Team Providers Care Transformation Manager Name Role Phone Unavailable Primary Care Provider Unavailabl e Encounter Details Date Type Department Care Team (Late st Contact Info) Description 10/10/2016 Orders [place] [address] , Generic Conversion, Social History Tobacco Use [...] GLUCOSE - MCCORMICK DOCKED DEVICE Routine 10/10/2016 10:36 AM CDT documented in this encounter Results * (ABNORMAL) POCT glucose (10/10/2016 10:36 AM CDT) GLUCOSE POC 200(H) 70 - 109 10/10/2016 9:38 AM CDT [facility] LAB ORDERS INTERFACE Comment:RN Notified WHOLE BLOOD SPECIMEN / Unknown 10/10/2016 10:36 AM CDT 10/10/2016 9:38 AM CDT us Generic Conversion Md PASTRANA POCT ORDERABLES - DEVIC E Final Result [facility] LAB ORDERS INTERFACE US documented in this encounter Visit Diagnoses Not on filedocumented in this encounter
--- OUTSIDE RECORDS SUMMARY | 2024-05-10 18:12 | XMS_ITS | Encounter Summary ---
Author Organization [facility] - [facility] Address [address] [place] [address]. [place] [address] [place] [address] Care Team Providers Care Foundry Molder Name Role Phone Unavailable Primary Care Provider Unavailabl e Encounter Details Date Type Department Care Team (Late st Contact Info) Description 10/09/2016 Orders [place] [address] , Generic Conversion, Social History Tobacco Use [...] GLUCOSE - MCCORMICK DOCKED DEVICE Routine 10/09/2016 8:08 PM CDT documented in this encounter Results * POCT glucose (10/09/2016 8:08 PM CDT) GLUCOSE POC 98 70 - 109 10/09/2016 7:12 PM CDT [facility] LAB ORDERS INTERFACE WHOLE BLOOD SPECIMEN / Unknown 10/09/2016 8:08 PM CDT 10/09/2016 7:12 PM CDT us Generic Conversion Md PASTRANA POCT ORDERABLES - DEVIC E Final Result [facility] LAB ORDERS INTERFACE US documented in this encounter Visit Diagnoses Not on filedocumented in this encounter
--- OUTSIDE RECORDS SUMMARY | 2024-05-10 18:12 | XMS_ITS | Encounter Summary ---
Author Organization [facility] - [facility] Address [address] [place] [address]. [place] [address] [place] [address] Care Team Providers Care Linen Clerk Name Role Phone Unavailable Primary Care Provider Unavailabl e Encounter Details Date Type Department Care Team (Late st Contact Info) Description 10/09/2016 Orders [place] [address] , Generic Conversion, Social History Tobacco Use [...] GLUCOSE - MCCORMICK DOCKED DEVICE Routine 10/09/2016 2:02 PM CDT documented in this encounter Results * POCT glucose (10/09/2016 2:02 PM CDT) GLUCOSE POC 104 70 - 109 10/09/2016 1:04 PM CDT [facility] LAB ORDERS INTERFACE WHOLE BLOOD SPECIMEN / Unknown 10/09/2016 2:02 PM CDT 10/09/2016 1:04 PM CDT us Generic Conversion Md PASTRANA POCT ORDERABLES - DEVIC E Final Result [facility] LAB ORDERS INTERFACE US documented in this encounter Visit Diagnoses Not on filedocumented in this encounter
--- OUTSIDE RECORDS SUMMARY | 2024-05-10 18:12 | XMS_ITS | Encounter Summary ---
Author Organization [facility] - [facility] Address [address] [place] [address]. [place] [address] [place] [address] Care Team Providers Care Manager Location Name Role Phone Unavailable Primary Care Provider Unavailabl e Encounter Details Date Type Department Care Team (Late st Contact Info) Description 10/07/2016 Orders [place] [address] , Generic Conversion, Social History Tobacco Use [...] GLUCOSE - MCCORMICK DOCKED DEVICE Routine 10/07/2016 9:07 AM CDT documented in this encounter Results * (ABNORMAL) POCT glucose (10/07/2016 9:07 AM CDT) GLUCOSE POC 157(H) 70 - 109 10/07/2016 11:06 AM CDT [facility] LAB ORDERS INTERFACE WHOLE BLOOD SPECIMEN / Unknown 10/07/2016 9:07 AM CDT 10/07/2016 11:06 AM CDT us Generic Conversion Md PASTRANA POCT ORDERABLES - DEVIC E Final Result [facility] LAB ORDERS INTERFACE US documented in this encounter Visit Diagnoses Not on filedocumented in this encounter
--- OUTSIDE RECORDS SUMMARY | 2024-05-10 18:12 | XMS_ITS | Encounter Summary ---
Author Organization [facility] - [facility] Address [address] [place] [address]. [place] [address] [place] [address] Care Team Providers Care Central Office Operator Name Role Phone Unavailable Primary Care Provider Unavailabl e Encounter Details Date Type Department Care Team (Late st Contact Info) Description 10/04/2016 Orders [place] [address] , Generic Conversion, Social History Tobacco Use [...] GLUCOSE - MCCORMICK DOCKED DEVICE Routine 10/04/2016 1:38 PM CDT documented in this encounter Results * (ABNORMAL) POCT glucose (10/04/2016 1:38 PM CDT) GLUCOSE POC 190(H) 70 - 109 10/04/2016 12:52 PM CDT [facility] LAB ORDERS INTERFACE WHOLE BLOOD SPECIMEN / Unknown 10/04/2016 1:38 PM CDT 10/04/2016 12:52 PM CDT us Generic Conversion Md PASTRANA POCT ORDERABLES - DEVIC E Final Result [facility] LAB ORDERS INTERFACE US documented in this encounter Visit Diagnoses Not on filedocumented in this encounter
--- OUTSIDE RECORDS SUMMARY | 2024-05-10 18:12 | XMS_ITS | Encounter Summary ---
Author Organization [facility] - [facility] Address [address] [place] [address]. [place] [address] [place] [address] Care Team Providers Care Ladle Liner Helper Name Role Phone Unavailable Primary Care Provider Unavailabl e Encounter Details Date Type Department Care Team (Late st Contact Info) Description 10/09/2016 Orders Only [place] [address] , Generic Conversion, Social History Tobacco Use [...] GLUCOSE - MCCORMICK DOCKED DEVICE Routine 10/09/2016 9:18 AM CDT documented in this encounter Results * (ABNORMAL) POCT glucose (10/09/2016 9:18 AM CDT) GLUCOSE POC 155(H) 70 - 109 10/09/2016 8:20 AM CDT [facility] LAB ORDERS INTERFACE WHOLE BLOOD SPECIMEN / Unknown 10/09/2016 9:18 AM CDT 10/09/2016 8:20 AM CDT us Generic Conversion Md PASTRANA POCT ORDERABLES - DEVIC E Final Result [facility] LAB ORDERS INTERFACE US documented in this encounter Visit Diagnoses Not on filedocumented in this encounter
--- OUTSIDE RECORDS SUMMARY | 2024-05-10 18:12 | XMS_ITS | Encounter Summary ---
Author Organization [facility] - [facility] Address [address] [place] [address]. [place] [address] [place] [address] Care Team Providers Care Communications Planner Name Role Phone Unavailable Primary Care Provider Unavailabl e Encounter Details Date Type Department Care Team (Late st Contact Info) Description 10/04/2016 Orders [place] [address] , Generic Conversion, Social History Tobacco Use [...] GLUCOSE - MCCORMICK DOCKED DEVICE Routine 10/04/2016 12:14 PM CDT documented in this encounter Results * (ABNORMAL) POCT glucose (10/04/2016 12:14 PM CDT) GLUCOSE POC 208(H) 70 - 109 10/04/2016 12:38 PM CDT [facility] LAB ORDERS INTERFACE WHOLE BLOOD SPECIMEN / Unknown 10/04/2016 12:14 PM CDT 10/04/2016 11:15 AM CDT us Generic Conversion Md PASTRANA POCT ORDERABLES - DEVIC E Final Result [facility] LAB ORDERS INTERFACE US documented in this encounter Visit Diagnoses Not on filedocumented in this encounter
--- OUTSIDE RECORDS SUMMARY | 2024-05-10 18:12 | XMS_ITS | Encounter Summary ---
Author Organization [facility] - [facility] Address [address] [place] [address]. [place] [address] [place] [address] Care Team Providers Care Smoking Pipe Maker Name Role Phone Unavailable Primary Care Provider Unavailabl e Encounter Details Date Type Department Care Team (Late st Contact Info) Description 10/04/2016 Orders [place] [address] , Generic Conversion, Social History Tobacco Use [...] GLUCOSE - MCCORMICK DOCKED DEVICE Routine 10/04/2016 5:58 AM CDT documented in this encounter Results * (ABNORMAL) POCT glucose (10/04/2016 5:58 AM CDT) GLUCOSE POC 139(H) 70 - 109 10/04/2016 5:04 AM CDT [facility] LAB ORDERS INTERFACE WHOLE BLOOD SPECIMEN / Unknown 10/04/2016 5:58 AM CDT 10/04/2016 5:04 AM CDT us Generic Conversion Md PASTRANA POCT ORDERABLES - DEVIC E Final Result [facility] LAB ORDERS INTERFACE US documented in this encounter Visit Diagnoses Not on filedocumented in this encounter
--- OUTSIDE RECORDS SUMMARY | 2024-05-10 18:12 | XMS_ITS | Encounter Summary ---
Author Organization [facility] - [facility] Address [address] [place] [address]. [place] [address] [place] [address] Care Team Providers Care It Service Manager Name Role Phone Unavailable Primary Care Provider Unavailabl e Encounter Details Date Type Department Care Team (Late st Contact Info) Description 10/04/2016 Orders Only [place] [address] , Generic Conversion, Social History Tobacco Use [...] GLUCOSE - MCCORMICK DOCKED DEVICE Routine 10/04/2016 9:48 AM CDT documented in this encounter Results * (ABNORMAL) POCT glucose (10/04/2016 9:48 AM CDT) GLUCOSE POC 167(H) 70 - 109 10/04/2016 8:52 AM CDT [facility] LAB ORDERS INTERFACE WHOLE BLOOD SPECIMEN / Unknown 10/04/2016 9:48 AM CDT 10/04/2016 8:52 AM CDT us Generic Conversion Md PASTRANA POCT ORDERABLES - DEVIC E Final Result [facility] LAB ORDERS INTERFACE US documented in this encounter Visit Diagnoses Not on filedocumented in this encounter
--- OUTSIDE RECORDS SUMMARY | 2024-05-10 18:12 | XMS_ITS | Encounter Summary ---
Author Organization [facility] - [facility] Address [address] [place] [address]. [place] [address] [place] [address] Care Team Providers Care Rubber Splicer Name Role Phone Unavailable Primary Care Provider Unavailabl e Encounter Details Date Type Department Care Team (Late st Contact Info) Description 10/04/2016 Orders Only [place] [address] , Generic Conversion, Social History Tobacco Use [...] GLUCOSE - MCCORMICK DOCKED DEVICE Routine 10/04/2016 5:42 PM CDT documented in this encounter Results * (ABNORMAL) POCT glucose (10/04/2016 5:42 PM CDT) GLUCOSE POC 171(H) 70 - 109 10/04/2016 4:44 PM CDT [facility] LAB ORDERS INTERFACE Comment:RN Notified WHOLE BLOOD SPECIMEN / Unknown 10/04/2016 5:42 PM CDT 10/04/2016 4:44 PM CDT us Generic Conversion Md PASTRANA POCT ORDERABLES - DEVIC E Final Result [facility] LAB ORDERS INTERFACE US documented in this encounter Visit Diagnoses Not on filedocumented in this encounter
--- OUTSIDE RECORDS SUMMARY | 2024-05-10 18:12 | XMS_ITS | Encounter Summary ---
Author Organization [facility] - [facility] Address [address] [place] [address]. [place] [address] [place] [address] Care Team Providers Care Photographic Technician Name Role Phone Unavailable Primary Care Provider Unavailabl e Encounter Details Date Type Department Care Team (Late st Contact Info) Description 10/09/2016 Orders Only [place] [address] , Generic Conversion, Social History Tobacco Use [...] GLUCOSE - MCCORMICK DOCKED DEVICE Routine 10/09/2016 10:11 PM CDT documented in this encounter Results * POCT glucose (10/09/2016 10:11 PM CDT) GLUCOSE POC 89 70 - 109 10/09/2016 9:14 PM CDT [facility] LAB ORDERS INTERFACE WHOLE BLOOD SPECIMEN / Unknown 10/09/2016 10:11 PM CDT 10/09/2016 9:14 PM CDT us Generic Conversion Md PASTRANA POCT ORDERABLES - DEVIC E Final Result [facility] LAB ORDERS INTERFACE US documented in this encounter Visit Diagnoses Not on filedocumented in this encounter
--- OUTSIDE RECORDS SUMMARY | 2024-05-10 18:12 | XMS_ITS | Encounter Summary ---
Author Organization [facility] - [facility] Address [address] [place] [address]. [place] [address] [place] [address] Care Team Providers Care Director Instrumentation Name Role Phone Unavailable Primary Care Provider Unavailabl e Encounter Details Date Type Department Care Team (Late st Contact Info) Description 10/09/2016 Orders [place] [address] , Generic Conversion, Social History Tobacco Use [...] GLUCOSE - MCCORMICK DOCKED DEVICE Routine 10/09/2016 7:22 PM CDT documented in this encounter Results * POCT glucose (10/09/2016 7:22 PM CDT) GLUCOSE POC 78 70 - 109 10/09/2016 6:32 PM CDT [facility] LAB ORDERS INTERFACE WHOLE BLOOD SPECIMEN / Unknown 10/09/2016 7:22 PM CDT 10/09/2016 6:31 PM CDT us Generic Conversion Md PASTRANA POCT ORDERABLES - DEVIC E Final Result [facility] LAB ORDERS INTERFACE US documented in this encounter Visit Diagnoses Not on filedocumented in this encounter
--- OUTSIDE RECORDS SUMMARY | 2024-05-10 18:13 | XMS_ITS | Encounter Summary ---
Author Organization [facility] - [facility] Address [address] [place] [address]. [place] [address] [place] [address] Care Team Providers Care Health Editor Name Role Phone Unavailable Primary Care Provider Unavailabl e Encounter Details Date Type Department Care Team (Late st Contact Info) Description 10/03/2016 Orders [place] [address] , Generic Conversion, Social History Tobacco Use [...] POCT GLUCOSE - MCCORMICK DOCKED DEVICE Routine 10/03/2016 2:08 PM CDT documented in this encounter Results * (ABNORMAL) POCT glucose (10/03/2016 2:08 PM CDT) GLUCOSE POC 264(H) 70 - 109 10/03/2016 1:11 PM CDT [facility] LAB ORDERS INTERFACE Comment:RN Notified WHOLE BLOOD SPECIMEN / Unknown 10/03/2016 2:08 PM CDT 10/03/2016 1:11 PM CDT us Generic Conversion Md PASTRANA POCT ORDERABLES - DEVIC E Final Result [facility] LAB ORDERS INTERFACE US documented in this encounter Visit Diagnoses Not on filedocumented in this encounter
--- OUTSIDE RECORDS SUMMARY | 2024-05-10 18:13 | XMS_ITS | Encounter Summary ---
Author Organization [facility] - [facility] Address [address] [place] [address]. [place] [address] [place] [address] Care Team Providers Care Counter Tender Name Role Phone Unavailable Primary Care Provider Unavailabl e Encounter Details Date Type Department Care Team (Late st Contact Info) Description 09/30/2016 Orders Only ANY CONVERSION ONE [place], [place] [id number] , Generic Conversion, Social History Tobacco Use [...] POCT GLUCOSE - MCCORMICK DOCKED DEVICE Routine 09/30/2016 10:45 PM CDT documented in this encounter Results * POCT glucose (09/30/2016 10:45 PM CDT) GLUCOSE POC 83 70 - 109 09/30/2016 9:49 PM CDT [facility] LAB ORDERS INTERFACE WHOLE BLOOD SPECIMEN / Unknown 09/30/2016 10:45 PM CDT 09/30/2016 9:49 PM CDT us Generic Conversion Md PASTRANA POCT ORDERABLES - DEVIC E Final Result [facility] LAB ORDERS INTERFACE US documented in this encounter Visit Diagnoses Not on filedocumented in this encounter
--- OUTSIDE RECORDS SUMMARY | 2024-05-10 18:13 | XMS_ITS | Encounter Summary ---
Author Organization [facility] - [facility] Address [address] [place] [address]. [place] [address] [place] [address] Care Team Providers Care Accreditation Specialist Name Role Phone Unavailable Primary Care Provider Unavailabl e Encounter Details Date Type Department Care Team (Late st Contact Info) Description 09/30/2016 Orders Only ANY CONVERSION ONE [place], [place] [id number] , Generic Conversion, Social History Tobacco Use [...] GLUCOSE - MCCORMICK DOCKED DEVICE Routine 09/30/2016 11:52 PM CDT documented in this encounter Results * (ABNORMAL) POCT glucose (09/30/2016 11:52 PM CDT) GLUCOSE POC 57(L) 70 - 109 09/30/2016 11:11 PM CDT [facility] LAB ORDERS INTERFACE WHOLE BLOOD SPECIMEN / Unknown 09/30/2016 11:52 PM CDT 09/30/2016 11:11 PM CDT us Generic Conversion Md PASTRANA POCT ORDERABLES - DEVIC E Final Result [facility] LAB ORDERS INTERFACE US documented in this encounter Visit Diagnoses Not on filedocumented in this encounter
--- OUTSIDE RECORDS SUMMARY | 2024-05-10 18:13 | XMS_ITS | Encounter Summary ---
Author Organization [facility] Address [address] [place] [address]. [place] [address] [place] [address] Care Team Providers Care Hall Clerk Name Role Phone Unavailable Primary Care Provider Unavailabl e Encounter Details Date Type Department Care Team (Late st Contact Info) Description 10/01/2016 Orders [place] [address] , Generic Conversion, Social History [...] Associated Diagnosis Comments BASIC METABOLIC PANEL TIMED 10/01/2016 10:26 AM CDT documented in this encounter Results * (ABNORMAL) BASIC METABOLIC PANEL (10/01/2016 10:26 AM CDT) SODIUM S/P/B 133(L) 135 - 147 MMOL/L 10/01/2016 10:18 AM CDT [facility] POTASSIUM S/P/B 3.9 3.5 - 5.0 MMOL/L 10/01/2016 10:18 AM CDT [facility] CHLORIDE S/P/B 107 98 - 107 MMOL/L 10/01/2016 10:18 AM CDT [facility] CO2 17.9(L) 22 - 29 MMOL/L 10/01/2016 10:18 AM CDT [facility] GLUCOSE 187(H) 70 - 109 MG/DL 10/01/2016 10:18 AM CDT [facility] BUN 4(L) 7 - 19 MG/DL 10/01/2016 10:18 AM CDT [facility] CREATININE S/P/B 0.57(L) 0.60 - 1.10 MG/DL 10/01/2016 10:18 AM CDT [facility] CALCIUM S/P/B 8.9 8.4 - 10.2 MG/DL 10/01/2016 10:18 AM CDT [facility] EGFR NON-AFR. AMER. 135 >60 ML/MIN/1.7 3 M2 10/01/2016 10:18 AM CDT [facility] EGFR AFR. AMER. 164 >60 ML/MIN/1.7 3 M2 10/01/2016 10:18 AM CDT [facility] ANION GAP 8.1 MMOL/L 10/01/2016 10:18 AM T [facility] OSMOLALITY (CALC) 268 MOSM/KG 10/01/2016 10:18 AM T [facility] PLASMA SPECIMEN / Unknown 10/01/2016 10:26 AM CDT 10/01/2016 9:27 AM CDT us Generic Conversion Md PASTRANA LABORATORY Final R esult [facility] [address] [place] [address], [id number] documented in this encounter Visit Diagnoses Not on filedocumented in this encounter
--- OUTSIDE RECORDS SUMMARY | 2024-05-10 18:13 | XMS_ITS | Encounter Summary ---
Author Organization [facility] - [facility] Address [address] [place] [address]. [place] [address] [place] [address] Care Team Providers Care Inside Sales Recruiter Name Role Phone Unavailable Primary Care Provider Unavailabl e Encounter Details Date Type Department Care Team (Late st Contact Info) Description 09/30/2016 Orders Only ANY CONVERSION ONE [place], [place] [id number] , Generic Conversion, Social History Tobacco Use [...] GLUCOSE - MCCORMICK DOCKED DEVICE Routine 09/30/2016 5:49 PM CDT documented in this encounter Results * (ABNORMAL) POCT glucose (09/30/2016 5:49 PM CDT) GLUCOSE POC 118(H) 70 - 109 09/30/2016 5:08 PM CDT [facility] LAB ORDERS INTERFACE WHOLE BLOOD SPECIMEN / Unknown 09/30/2016 5:49 PM CDT 09/30/2016 5:07 PM CDT us Generic Conversion Md PASTRANA POCT ORDERABLES - DEVIC E Final Result [facility] LAB ORDERS INTERFACE US documented in this encounter Visit Diagnoses Not on filedocumented in this encounter
--- OUTSIDE RECORDS SUMMARY | 2024-05-10 18:13 | XMS_ITS | Encounter Summary ---
Author Organization [facility] Address [address] [place] [address]. [place] [address] [place] [address] Care Team Providers Care Machine Learning Intern Name Role Phone Unavailable Primary Care Provider Unavailabl e Encounter Details Date Type Department Care Team (Late st Contact Info) Description 10/03/2016 Orders [place] [address] , Generic Conversion, Social History [...] GLUCOSE - MCCORMICK DOCKED DEVICE Routine 10/03/2016 10:14 AM CDT documented in this encounter Results * (ABNORMAL) POCT glucose (10/03/2016 10:14 AM CDT) GLUCOSE POC 172(H) 70 - 109 10/03/2016 9:[address] [facility] LAB ORDERS INTERFACE Comment:RN Notified WHOLE BLOOD SPECIMEN / Unknown 10/03/2016 10:14 AM CDT 10/03/2016 9:17 AM CDT us Generic Conversion Md PASTRANA POCT ORDERABLES - DEVIC E Final Result [facility] LAB ORDERS INTERFACE US documented in this encounter Visit Diagnoses Not on filedocumented in this encounter
--- OUTSIDE RECORDS SUMMARY | 2024-05-10 18:13 | XMS_ITS | Encounter Summary ---
Author Organization [facility] - [facility] Address [address] [place] [address]. [place] [address] [place] [address] Care Team Providers Care Crop Picker Name Role Phone Unavailable Primary Care Provider Unavailabl e Encounter Details Date Type Department Care Team (Late st Contact Info) Description 10/02/2016 Orders Only [place] [address] , Generic Conversion, Social History Tobacco Use [...] POCT GLUCOSE - MCCORMICK DOCKED DEVICE Routine 10/02/2016 7:41 PM CDT documented in this encounter Results * (ABNORMAL) POCT glucose (10/02/2016 7:41 PM CDT) GLUCOSE POC 113(H) 70 - 109 10/02/2016 6:44 PM CDT [facility] LAB ORDERS INTERFACE WHOLE BLOOD SPECIMEN / Unknown 10/02/2016 7:41 PM CDT 10/02/2016 6:44 PM CDT us Generic Conversion Md PASTRANA POCT ORDERABLES - DEVIC E Final Result [facility] LAB ORDERS INTERFACE US documented in this encounter Visit Diagnoses Not on filedocumented in this encounter
--- OUTSIDE RECORDS SUMMARY | 2024-05-10 18:13 | XMS_ITS | Encounter Summary ---
Author Organization [facility] - [facility] Address [address] [place] [address]. [place] [address] [place] [address] Care Team Providers Care Electrical Engineering Manager Name Role Phone Unavailable Primary Care Provider Unavailabl e Encounter Details Date Type Department Care Team (Late st Contact Info) Description 10/01/2016 Orders [place] [address] , Generic Conversion, Social History Tobacco Use [...] POCT GLUCOSE - MCCORMICK DOCKED DEVICE Routine 10/01/2016 8:09 AM CDT documented in this encounter Results * POCT glucose (10/01/2016 8:09 AM CDT) GLUCOSE POC 96 70 - 109 10/01/2016 7:13 AM CDT [facility] LAB ORDERS INTERFACE Comment:RN Notified WHOLE BLOOD SPECIMEN / Unknown 10/01/2016 8:09 AM CDT 10/01/2016 7:13 AM CDT us Generic Conversion Md PASTRANA POCT ORDERABLES - DEVIC E Final Result [facility] LAB ORDERS INTERFACE US documented in this encounter Visit Diagnoses Not on filedocumented in this encounter
--- OUTSIDE RECORDS SUMMARY | 2024-05-10 18:13 | XMS_ITS | Encounter Summary ---
Author Organization [facility] - [facility] Address [address] [place] [address]. [place] [address] [place] [address] Care Team Providers Care Fruit Worker Name Role Phone Unavailable Primary Care Provider Unavailabl e Encounter Details Date Type Department Care Team (Late st Contact Info) Description 10/01/2016 Orders [place] [address] , Generic Conversion, Social History Tobacco Use [...] GLUCOSE - MCCORMICK DOCKED DEVICE Routine 10/01/2016 4:02 AM CDT documented in this encounter Results * (ABNORMAL) POCT glucose (10/01/2016 4:02 AM CDT) GLUCOSE POC 112(H) 70 - 109 10/01/2016 3:04 AM CDT [facility] LAB ORDERS INTERFACE WHOLE BLOOD SPECIMEN / Unknown 10/01/2016 4:02 AM CDT 10/01/2016 3:04 AM CDT us Generic Conversion Md PASTRANA POCT ORDERABLES - DEVIC E Final Result [facility] LAB ORDERS INTERFACE US documented in this encounter Visit Diagnoses Not on filedocumented in this encounter
--- OUTSIDE RECORDS SUMMARY | 2024-05-10 18:13 | XMS_ITS | Encounter Summary ---
Author Organization [facility] - [facility] Address [address] [place] [address]. [place] [address] [place] [address] Care Team Providers Care Supersonic Engineer Name Role Phone Unavailable Primary Care Provider Unavailabl e Encounter Details Date Type Department Care Team (Late st Contact Info) Description 10/02/2016 Orders [place] [address] , Generic Conversion, Social History Tobacco Use [...] GLUCOSE - MCCORMICK DOCKED DEVICE Routine 10/02/2016 2:22 PM CDT documented in this encounter Results * (ABNORMAL) POCT glucose (10/02/2016 2:22 PM CDT) GLUCOSE POC 159(H) 70 - 109 10/02/2016 1:23 PM CDT [facility] LAB ORDERS INTERFACE WHOLE BLOOD SPECIMEN / Unknown 10/02/2016 2:22 PM CDT 10/02/2016 1:23 PM CDT us Generic Conversion Md PASTRANA POCT ORDERABLES - DEVIC E Final Result [facility] ORDERS INTERFACE US documented in this encounter Visit Diagnoses Not on filedocumented in this encounter
--- OUTSIDE RECORDS SUMMARY | 2024-05-10 18:13 | XMS_ITS | Encounter Summary ---
Author Organization [facility] Address [address] [place] [address]. [place] [address] [place] [address] Care Team Providers Care Washing Machine Loader Name Role Phone Unavailable Primary Care Provider Unavailabl e Encounter Details Date Type Department Care Team (Latest Contact Info) Description 09/30/2016 Abstract [facility] Medical [facility] Social [...]
--- OUTSIDE RECORDS SUMMARY | 2024-05-10 18:13 | XMS_ITS | Encounter Summary ---
Author Organization [facility] Address [address] [place] [address]. [place] [address] [place] [address] Care Team Providers Care Financial Wellness Coach Name Role Phone Unavailable Primary Care Provider Unavailabl e Encounter Details Date Type Department Care Team (Late st Contact Info) Description 10/01/2016 Orders Only [place] [address] , Generic Conversion, Social History [...] Diagnosis Comments BASIC METABOLIC PANEL TIMED 10/01/2016 2:44 AM CDT documented in this encounter Results * (ABNORMAL) BASIC METABOLIC PANEL (10/01/2016 2:44 AM CDT) SODIUM S/P/B 133(L) 135 - 147 MMOL/L 10/01/2016 2:21 AM CDT [facility] POTASSIUM S/P/B 3.8 3.5 - 5.0 MMOL/L 10/01/2016 2:21 AM CDT [facility] CHLORIDE S/P/B 108(H) 98 - 107 MMOL/L 10/01/2016 2:21 AM CDT [facility] CO2 17.0(L) 22 - 29 MMOL/L 10/01/2016 2:21 AM CDT [facility] GLUCOSE 109 70 - 109 MG/DL 10/01/2016 2:21 AM CDT [facility] BUN 5(L) 7 - 19 MG/DL 10/01/2016 2:21 AM CDT [facility] CREATININE S/P/B 0.56(L) 0.60 - 1.10 MG/DL 10/01/2016 2:21 AM CDT [facility] CALCIUM S/P/B 9.1 8.4 - 10.2 MG/DL 10/01/2016 2:21 AM CDT [facility] EGFR NON-AFR. AMER. 138 >60 ML/MIN/1.7 3 M2 10/01/2016 2:21 AM CDT [facility] EGFR AFR. AMER. 167 >60 ML/MIN/1.7 3 M2 10/01/2016 2:21 AM CDT [facility] ANION GAP 8.0 MMOL/L 10/01/2016 2:21 AM CDT [facility] OSMOLALITY (CALC) 264 MOSM/KG 10/01/2016 2:21 AM T [facility] PLASMA SPECIMEN / Unknown 10/01/2016 2:44 AM CDT 10/01/2016 1:47 AM CDT us Generic Conversion Md PA[facility] LABORAT[facility] Final R esult [facility] [address] [place] [address], [id number] documented in this encounter Visit Diagnoses Not on filedocumented in this encounter
--- OUTSIDE RECORDS SUMMARY | 2024-05-10 18:13 | XMS_ITS | Encounter Summary ---
Author Organization [facility] Address [address] [place] [address]. [place] [address] [place] [address] Care Team Providers Care Documentation Writer Name Role Phone Unavailable Primary Care Provider Unavailabl e Encounter Details Date Type Department Care Team (Late st Contact Info) Description 10/01/2016 Orders [place] [address] , Generic Conversion, Social History [...] Diagnosis Comments BASIC METABOLIC PANEL TIMED 10/01/2016 6:28 AM CDT documented in this encounter Results * (ABNORMAL) BASIC METABOLIC PANEL (10/01/2016 6:28 AM CDT) SODIUM S/P/B 132(L) 135 - 147 MMOL/L 10/01/2016 5:[address] [facility] POTASSIUM S/P/B 3.7 3.5 - 5.0 MMOL/L 10/01/2016 5:[address] [facility] CHLORIDE S/P/B 107 98 - 107 MMOL/L 10/01/2016 5:[address] [facility] CO2 18.7(L) 22 - 29 MMOL/L 10/01/2016 5:[address] [facility] GLUCOSE 104 70 - 109 MG/DL 10/01/2016 5:[address] [facility] BUN 4(L) 7 - 19 MG/DL 10/01/2016 5:[address] [facility] CREATININE S/P/B 0.54(L) 0.60 - 1.10 MG/DL 10/01/2016 5:[address] [facility] CALCIUM S/P/B 8.8 8.4 - 10.2 MG/DL 10/01/2016 5:[address] [facility] EGFR NON-AFR. AMER. 144 >60 ML/MIN/1.7 3 M2 10/01/2016 5:[address] [facility] EGFR AFR. AMER. 174 >60 ML/MIN/1.7 3 M2 10/01/2016 5:[address] [facility] ANION GAP 6.3 MMOL/L 10/01/2016 5:[address] [facility] OSMOLALITY (CALC) 262 MOSM/KG 10/01/2016 5:[address] [facility] PLASMA SPECIMEN / Unknown 10/01/2016 6:28 AM CDT 10/01/2016 5:29 AM CDT us Generic Conversion Md PASTRANA LABORATORY Final R esult [facility] [address] [place] [address], [id number] documented in this encounter Visit Diagnoses Not on filedocumented in this encounter
--- OUTSIDE RECORDS SUMMARY | 2024-05-10 18:13 | XMS_ITS | Encounter Summary ---
Author Organization [facility] - [facility] Address [address] [place] [address]. [place] [address] [place] [address] Care Team Providers Care Client Development Consultant Name Role Phone Unavailable Primary Care Provider Unavailabl e Encounter Details Date Type Department Care Team (Late st Contact Info) Description 09/30/2016 Orders [place] [address] , Generic Conversion, Social History Tobacco Use [...] GLUCOSE - MCCORMICK DOCKED DEVICE Routine 09/30/2016 4:43 PM CDT documented in this encounter Results * (ABNORMAL) POCT glucose (09/30/2016 4:43 PM CDT) GLUCOSE POC 110(H) 70 - 109 09/30/2016 3:46 PM CDT [facility] LAB ORDERS INTERFACE WHOLE BLOOD SPECIMEN / Unknown 09/30/2016 4:43 PM CDT 09/30/2016 3:46 PM CDT us Generic Conversion Md PASTRANA POCT ORDERABLES - DEVIC E Final Result [facility] LAB ORDERS INTERFACE US documented in this encounter Visit Diagnoses Not on filedocumented in this encounter
--- OUTSIDE RECORDS SUMMARY | 2024-05-10 18:13 | XMS_ITS | Encounter Summary ---
Author Organization [facility] - [facility] Address [address] [place] [address]. [place] [address] [place] [address] Care Team Providers Care Stiff Straw Hat Washer Name Role Phone Unavailable Primary Care Provider Unavailabl e Encounter Details Date Type Department Care Team (Late st Contact Info) Description 10/01/2016 Orders [place] [address] , Generic Conversion, Social History Tobacco Use [...] GLUCOSE - MCCORMICK DOCKED DEVICE Routine 10/01/2016 5:04 AM CDT documented in this encounter Results * POCT glucose (10/01/2016 5:04 AM CDT) GLUCOSE POC 88 70 - 109 10/01/2016 4:07 AM CDT [facility] LAB ORDERS INTERFACE WHOLE BLOOD SPECIMEN / Unknown 10/01/2016 5:04 AM CDT 10/01/2016 4:07 AM CDT us Generic Conversion Md PASTRANA POCT ORDERABLES - DEVIC E Final Result [facility] LAB ORDERS INTERFACE US documented in this encounter Visit Diagnoses Not on filedocumented in this encounter
--- OUTSIDE RECORDS SUMMARY | 2024-05-10 18:13 | XMS_ITS | Encounter Summary ---
Author Organization [facility] - [facility] Address [address] [place] [address]. [place] [address] [place] [address] Care Team Providers Care Clinical Medical Transcriptionist Name Role Phone Unavailable Primary Care Provider Unavailabl e Encounter Details Date Type Department Care Team (Late st Contact Info) Description 10/01/2016 Orders [place] [address] , Generic Conversion, Social History Tobacco Use [...] GLUCOSE - MCCORMICK DOCKED DEVICE Routine 10/01/2016 12:50 AM CDT documented in this encounter Results * (ABNORMAL) POCT glucose (10/01/2016 12:50 AM CDT) GLUCOSE POC 59(L) 70 - 109 09/30/2016 11:53 PM CDT [facility] LAB ORDERS INTERFACE Comment:RN Notified WHOLE BLOOD SPECIMEN / Unknown 10/01/2016 12:50 AM CDT 09/30/2016 11:53 PM CDT us Generic Conversion Md PASTRANA POCT ORDERABLES - DEVIC E Final Result [facility] LAB ORDERS INTERFACE US documented in this encounter Visit Diagnoses Not on filedocumented in this encounter
--- OUTSIDE RECORDS SUMMARY | 2024-05-10 18:13 | XMS_ITS | Encounter Summary ---
Author Organization [facility] Address [address] [place] [address]. [place] [address] [place] [address] Care Team Providers Care Cook Box Filler Name Role Phone Unavailable Primary Care Provider Unavailabl e Encounter Details Date Type Department Care Team (Late st Contact Info) Description 10/03/2016 Orders [place] [address] , Generic Conversion, Social History Tobacco Use [...] GLUCOSE - MCCORMICK DOCKED DEVICE Routine 10/03/2016 6:10 AM CDT documented in this encounter Results * (ABNORMAL) POCT glucose (10/03/2016 6:10 AM CDT) GLUCOSE POC 133(H) 70 - 109 10/03/2016 5:[address] [facility] LAB ORDERS INTERFACE Comment:RN Notified WHOLE BLOOD SPECIMEN / Unknown 10/03/2016 6:10 AM CDT 10/03/2016 5:12 AM CDT us Generic Conversion Md PASTRANA POCT ORDERABLES - DEVIC E Final Result [facility] LAB ORDERS INTERFACE US documented in this encounter Visit Diagnoses Not on filedocumented in this encounter
--- OUTSIDE RECORDS SUMMARY | 2024-05-10 18:13 | XMS_ITS | Encounter Summary ---
Author Organization [facility] - [facility] Address [address] [place] [address]. [place] [address] [place] [address] Care Team Providers Care Newspaper Copy Editor Name Role Phone Unavailable Primary Care Provider Unavailabl e Encounter Details Date Type Department Care Team (Late st Contact Info) Description 10/03/2016 Orders [place] [address] , Generic Conversion, Social History Tobacco Use [...] GLUCOSE - MCCORMICK DOCKED DEVICE Routine 10/03/2016 3:06 AM CDT documented in this encounter Results * (ABNORMAL) POCT glucose (10/03/2016 3:06 AM CDT) GLUCOSE POC 160(H) 70 - 109 10/03/2016 2:08 AM CDT [facility] LAB ORDERS INTERFACE Comment:RN Notified WHOLE BLOOD SPECIMEN / Unknown 10/03/2016 3:06 AM CDT 10/03/2016 2:08 AM CDT us Generic Conversion Md PASTRANA POCT ORDERABLES - DEVIC E Final Result [facility] LAB ORDERS INTERFACE US documented in this encounter Visit Diagnoses Not on filedocumented in this encounter
--- OUTSIDE RECORDS SUMMARY | 2024-05-10 18:13 | XMS_ITS | Encounter Summary ---
Author Organization [facility] - [facility] Address [address] [place] [address]. [place] [address] [place] [address] Care Team Providers Care Sighter Name Role Phone Unavailable Primary Care Provider Unavailabl e Encounter Details Date Type Department Care Team (Late st Contact Info) Description 10/02/2016 Orders Only [place] [address] , Generic Conversion, Social History Tobacco Use [...] GLUCOSE - MCCORMICK DOCKED DEVICE Routine 10/02/2016 4:05 AM CDT documented in this encounter Results * POCT glucose (10/02/2016 4:05 AM CDT) GLUCOSE POC 106 70 - 109 10/02/2016 3:06 AM CDT [facility] LAB ORDERS INTERFACE Comment:RN Notified WHOLE BLOOD SPECIMEN / Unknown 10/02/2016 4:05 AM CDT 10/02/2016 3:06 AM CDT us Generic Conversion Md PASTRANA POCT ORDERABLES - DEVIC E Final Result [facility] LAB ORDERS INTERFACE US documented in this encounter Visit Diagnoses Not on filedocumented in this encounter
--- OUTSIDE RECORDS SUMMARY | 2024-05-10 18:13 | XMS_ITS | Encounter Summary ---
Author Organization [facility] Address [address] [place] [address]. [place] [address] [place] [address] Care Team Providers Care Petroleum Products District Supervisor Name Role Phone Unavailable Primary Care Provider Unavailabl e Encounter Details Date Type Department Care Team (Late st Contact Info) Description 10/02/2016 Orders [place] [address] , Generic Conversion, Social History Tobacco Use [...] GLUCOSE - MCCORMICK DOCKED DEVICE Routine 10/02/2016 2:57 AM CDT documented in this encounter Results * (ABNORMAL) POCT glucose (10/02/2016 2:57 AM CDT) GLUCOSE POC 40(L) 70 - 109 10/02/2016 1:59 AM CDT [facility] LAB ORDERS INTERFACE Comment:RN Notified WHOLE BLOOD SPECIMEN / Unknown 10/02/2016 2:57 AM CDT 10/02/2016 1:59 AM CDT us Generic Conversion Md PASTRANA POCT ORDERABLES - DEVIC E Final Result [facility] LAB ORDERS INTERFACE US documented in this encounter Visit Diagnoses Not on filedocumented in this encounter
--- OUTSIDE RECORDS SUMMARY | 2024-05-10 18:13 | XMS_ITS | Encounter Summary ---
Author Organization [facility] Address [address] [place] [address]. [place] [address] [place] [address] Care Team Providers Care Instructor Bridge Name Role Phone Unavailable Primary Care Provider Unavailabl e Encounter Details Date Type Department Care Team (Late st Contact Info) Description 10/02/2016 Orders [place] [address] , Generic Conversion, Social History Tobacco Use [...] GLUCOSE - MCCORMICK DOCKED DEVICE Routine 10/02/2016 8:56 AM CDT documented in this encounter Results * POCT glucose (10/02/2016 8:56 AM CDT) GLUCOSE POC 100 70 - 109 10/02/2016 7:58 AM CDT [facility] LAB ORDERS INTERFACE WHOLE BLOOD SPECIMEN / Unknown 10/02/2016 8:56 AM CDT 10/02/2016 7:58 AM CDT us Generic Conversion Md PASTRANA POCT ORDERABLES - DEVIC E Final Result [facility] LAB ORDERS INTERFACE US documented in this encounter Visit Diagnoses Not on filedocumented in this encounter
--- OUTSIDE RECORDS SUMMARY | 2024-05-10 18:13 | XMS_ITS | Encounter Summary ---
Author Organization [facility] Address [address] [place] [address]. [place] [address] [place] [address] Care Team Providers Care Upper Cutter Out Name Role Phone Unavailable Primary Care Provider Unavailabl e Encounter Details Date Type Department Care Team (Latest Contact Info) Description 10/01/2016 Abstract [facility] Medical Group Social History Tobacco [...]
--- OUTSIDE RECORDS SUMMARY | 2024-05-10 18:13 | XMS_ITS | Encounter Summary ---
Author Organization [facility] Address [address] [place] [address]. [place] [address] [place] [address] Care Team Providers Care Conductor Pullman Name Role Phone Unavailable Primary Care Provider Unavailabl e Encounter Details Date Type Department Care Team (Late st Contact Info) Description 10/01/2016 Orders Only [place] [address] , Generic Conversion, Social History Tobacco Use [...] GLUCOSE - MCCORMICK DOCKED DEVICE Routine 10/01/2016 2:53 AM CDT documented in this encounter Results * POCT glucose (10/01/2016 2:53 AM CDT) GLUCOSE POC 98 70 - 109 10/01/2016 2:00 AM CDT [facility] LAB ORDERS INTERFACE WHOLE BLOOD SPECIMEN / Unknown 10/01/2016 2:53 AM CDT 10/01/2016 2:00 AM CDT us Generic Conversion Md PASTRANA POCT ORDERABLES - DEVIC E Final Result [facility] LAB ORDERS INTERFACE US documented in this encounter Visit Diagnoses Not on filedocumented in this encounter
--- OUTSIDE RECORDS SUMMARY | 2024-05-10 18:13 | XMS_ITS | Encounter Summary ---
Author Organization [facility] Address [address] [place] [address]. [place] [address] [place] [address] Care Team Providers Care Store Person Name Role Phone Unavailable Primary Care Provider Unavailabl e Encounter Details Date Type Department Care Team (Latest Contact Info) Description 10/03/2016 Abstract [facility] Medical Group [...]
--- OUTSIDE RECORDS SUMMARY | 2024-05-10 18:13 | XMS_ITS | Encounter Summary ---
Author Organization [facility] Address [address] [place] [address]. [place] [address] [place] [address] Care Team Providers Care Hearing Aide Technician Name Role Phone Unavailable Primary Care Provider Unavailabl e Encounter Details Date Type Department Care Team (Late st Contact Info) Description 10/03/2016 Orders [place] [address] , Generic Conversion, Social History Tobacco Use [...] GLUCOSE - MCCORMICK DOCKED DEVICE Routine 10/03/2016 4:29 PM CDT documented in this encounter Results * (ABNORMAL) POCT glucose (10/03/2016 4:29 PM CDT) GLUCOSE POC 137(H) 70 - 109 10/03/2016 3:31 PM CDT [facility] LAB ORDERS INTERFACE Comment:RN Notified WHOLE BLOOD SPECIMEN / Unknown 10/03/2016 4:29 PM CDT 10/03/2016 3:31 PM CDT us Generic Conversion Md PASTRANA POCT ORDERABLES - DEVIC E Final Result [facility] LAB ORDERS INTERFACE US documented in this encounter Visit Diagnoses Not on filedocumented in this encounter
--- OUTSIDE RECORDS SUMMARY | 2024-05-10 18:13 | XMS_ITS | Encounter Summary ---
Author Organization [facility] Address [address] [place] [address]. [place] [address] [place] [address] Care Team Providers Care Life Skills Instructor Name Role Phone Unavailable Primary Care Provider Unavailabl e Encounter Details Date Type Department Care Team (Latest Contact Info) Description 10/02/[address] [facility] Medical Group Social History Tobacco Use Types [...]
--- OUTSIDE RECORDS SUMMARY | 2024-05-10 18:13 | XMS_ITS | Encounter Summary ---
Author Organization [facility] Address [address] [place] [address]. [place] [address] [place] [address] Care Team Providers Care Collection Systems Worker Name Role Phone Unavailable Primary Care Provider Unavailabl e Encounter Details Date Type Department Care Team (Late st Contact Info) Description 10/01/2016 Orders [place] [address] , Generic Conversion, Social History Tobacco Use [...] GLUCOSE - MCCORMICK DOCKED DEVICE Routine 10/01/2016 5:54 AM CDT documented in this encounter Results * POCT glucose (10/01/2016 5:54 AM CDT) GLUCOSE POC 107 70 - 109 10/01/2016 4:57 AM CDT [facility] LAB ORDERS INTERFACE WHOLE BLOOD SPECIMEN / Unknown 10/01/2016 5:54 AM CDT 10/01/2016 4:57 AM CDT us Generic Conversion Md PASTRANA POCT ORDERABLES - DEVIC E Final Result [facility] LAB ORDERS INTERFACE US documented in this encounter Visit Diagnoses Not on filedocumented in this encounter
--- OUTSIDE RECORDS SUMMARY | 2024-05-10 18:13 | XMS_ITS | Encounter Summary ---
Author Organization [facility] Address [address] [place] [address]. [place] [address] [place] [address] Care Team Providers Care [employer] Agent Team Member Name Role Phone Unavailable Primary Care Provider Unavailabl e Encounter Details Date Type Department Care Team (Late st Contact Info) Description 10/01/2016 Orders Only ANY CONVERSION ONE [place], [place] [id number] , Generic Conversion, Social History Tobacco Use [...] GLUCOSE - MCCORMICK DOCKED DEVICE Routine 10/01/2016 2:29 PM CDT documented in this encounter Results * (ABNORMAL) POCT glucose (10/01/2016 2:29 PM CDT) GLUCOSE POC 294(H) 70 - 109 10/01/2016 1:33 PM CDT [facility] LAB ORDERS INTERFACE WHOLE BLOOD SPECIMEN / Unknown 10/01/2016 2:29 PM CDT 10/01/2016 1:33 PM CDT us Generic Conversion Md PASTRANA POCT ORDERABLES - DEVIC E Final Result [facility] LAB ORDERS INTERFACE US documented in this encounter Visit Diagnoses Not on filedocumented in this encounter
--- OUTSIDE RECORDS SUMMARY | 2024-05-10 18:13 | XMS_ITS | Encounter Summary ---
Author Organization [facility] Address [address] [place] [address]. [place] [address] [place] [address] Care Team Providers Care Feature Writer Name Role Phone Unavailable Primary Care Provider Unavailabl e Encounter Details Date Type Department Care Team (Late st Contact Info) Description 10/02/2016 Orders Only [place] [address] , Generic Conversion, Social History Tobacco Use [...] GLUCOSE - MCCORMICK DOCKED DEVICE Routine 10/02/2016 3:31 AM CDT documented in this encounter Results * POCT glucose (10/02/2016 3:31 AM CDT) GLUCOSE POC 72 70 - 109 10/02/2016 6:14 AM CDT [facility] LAB ORDERS INTERFACE Comment:RN Notified WHOLE BLOOD SPECIMEN / Unknown 10/02/2016 3:31 AM CDT 10/02/2016 6:14 AM CDT us Generic Conversion Md PASTRANA POCT ORDERABLES - DEVIC E Final Result [facility] LAB ORDERS INTERFACE US documented in this encounter Visit Diagnoses Not on filedocumented in this encounter
--- OUTSIDE RECORDS SUMMARY | 2024-05-10 18:13 | XMS_ITS | Encounter Summary ---
Author Organization [facility] Address [address] [place] [address]. [place] [address] [place] [address] Care Team Providers Care Pilot Captain Name Role Phone Unavailable Primary Care Provider Unavailabl e Encounter Details Date Type Department Care Team (Late st Contact Info) Description 10/02/2016 Orders Only [place] [address] , Generic Conversion, Social History Tobacco Use [...] GLUCOSE - MCCORMICK DOCKED DEVICE Routine 10/02/2016 6:02 AM CDT documented in this encounter Results * (ABNORMAL) POCT glucose (10/02/2016 6:02 AM CDT) GLUCOSE POC 156(H) 70 - 109 10/02/2016 5:08 AM CDT [facility] LAB ORDERS INTERFACE Comment:RN Notified WHOLE BLOOD SPECIMEN / Unknown 10/02/2016 6:02 AM CDT 10/02/2016 5:08 AM CDT us Generic Conversion Md PASTRANA POCT ORDERABLES - DEVIC E Final Result [facility] LAB ORDERS INTERFACE US documented in this encounter Visit Diagnoses Not on filedocumented in this encounter
--- OUTSIDE RECORDS SUMMARY | 2024-05-10 18:13 | XMS_ITS | Encounter Summary ---
Author Organization [facility] - [facility] Address [address] [place] [address]. [place] [address] [place] [address] Care Team Providers Care Overhauler Name Role Phone Unavailable Primary Care Provider Unavailabl e Encounter Details Date Type Department Care Team (Late st Contact Info) Description 10/02/2016 Orders [place] [address] , Generic Conversion, Social History Tobacco Use [...] GLUCOSE - MCCORMICK DOCKED DEVICE Routine 10/02/2016 11:42 AM CDT documented in this encounter Results * (ABNORMAL) POCT glucose (10/02/2016 11:42 AM CDT) GLUCOSE POC 177(H) 70 - 109 10/02/2016 10:44 AM CDT [facility] LAB ORDERS INTERFACE WHOLE BLOOD SPECIMEN / Unknown 10/02/2016 11:42 AM CDT 10/02/2016 10:43 AM CDT us Generic Conversion Md PASTRANA POCT ORDERABLES - DEVIC E Final Result [facility] LAB ORDERS INTERFACE US documented in this encounter Visit Diagnoses Not on filedocumented in this encounter
--- OUTSIDE RECORDS SUMMARY | 2024-05-10 18:13 | XMS_ITS | Encounter Summary ---
Author Organization [facility] - [facility] Address [address] [place] [address]. [place] [address] [place] [address] Care Team Providers Care Elementary [employer] Science Teacher Name Role Phone Unavailable Primary Care Provider Unavailabl e Encounter Details Date Type Department Care Team (Late st Contact Info) Description 10/02/2016 Orders Only [place] [address] , Generic Conversion, Social History Tobacco Use [...] GLUCOSE - MCCORMICK DOCKED DEVICE Routine 10/02/2016 4:51 PM CDT documented in this encounter Results * POCT glucose (10/02/2016 4:51 PM CDT) GLUCOSE POC 96 70 - 109 10/02/2016 4:00 PM CDT [facility] LAB ORDERS INTERFACE WHOLE BLOOD SPECIMEN / Unknown 10/02/2016 4:51 PM CDT 10/02/2016 4:00 PM CDT us Generic Conversion Md PASTRANA POCT ORDERABLES - DEVIC E Final Result [facility] LAB ORDERS INTERFACE US documented in this encounter Visit Diagnoses Not on filedocumented in this encounter
--- OUTSIDE RECORDS SUMMARY | 2024-05-10 18:13 | XMS_ITS | Encounter Summary ---
Author Organization [facility] - [facility] Address [address] [place] [address]. [place] [address] [place] [address] Care Team Providers Care Front Office Coordinator Name Role Phone Unavailable Primary Care Provider Unavailabl e Encounter Details Date Type Department Care Team (Late st Contact Info) Description 10/01/2016 Orders [place] [address] , Generic Conversion, Social History Tobacco Use [...] GLUCOSE - MCCORMICK DOCKED DEVICE Routine 10/01/2016 9:00 PM CDT documented in this encounter Results * (ABNORMAL) POCT glucose (10/01/2016 9:00 PM CDT) GLUCOSE POC 149(H) 70 - 109 10/01/2016 8:59 PM CDT [facility] LAB ORDERS INTERFACE WHOLE BLOOD SPECIMEN / Unknown 10/01/2016 9:00 PM CDT 10/01/2016 8:59 PM CDT us Generic Conversion Md PASTRANA POCT ORDERABLES - DEVIC E Final Result [facility] LAB ORDERS INTERFACE US documented in this encounter Visit Diagnoses Not on filedocumented in this encounter
--- OUTSIDE RECORDS SUMMARY | 2024-05-10 18:13 | XMS_ITS | Encounter Summary ---
Author Organization [facility] - [facility] Address [address] [place] [address]. [place] [address] [place] [address] Care Team Providers Care Fire Hydrant Operator Name Role Phone Unavailable Primary Care Provider Unavailabl e Encounter Details Date Type Department Care Team (Late st Contact Info) Description 10/01/2016 Orders [place] [address] , Generic Conversion, Social History Tobacco Use [...] GLUCOSE - MCCORMICK DOCKED DEVICE Routine 10/01/2016 4:15 PM CDT documented in this encounter Results * (ABNORMAL) POCT glucose (10/01/2016 4:15 PM CDT) GLUCOSE POC 221(H) 70 - 109 10/01/2016 3:18 PM CDT [facility] LAB ORDERS INTERFACE WHOLE BLOOD SPECIMEN / Unknown 10/01/2016 4:15 PM CDT 10/01/2016 3:18 PM CDT us Generic Conversion Md PASTRANA POCT ORDERABLES - DEVIC E Final Result [facility] LAB ORDERS INTERFACE US documented in this encounter Visit Diagnoses Not on filedocumented in this encounter
--- OUTSIDE RECORDS SUMMARY | 2024-05-10 18:13 | XMS_ITS | Encounter Summary ---
Author Organization [facility] - [facility] Address [address] [place] [address]. [place] [address] [place] [address] Care Team Providers Care Reptile Keeper Name Role Phone Unavailable Primary Care Provider Unavailabl e Encounter Details Date Type Department Care Team (Late st Contact Info) Description 09/30/2016 Orders Only ANY CONVERSION ONE [place], [place] [id number] , Generic Conversion, Social History Tobacco Use [...] GLUCOSE - MCCORMICK DOCKED DEVICE Routine 09/30/2016 7:49 PM CDT documented in this encounter Results * POCT glucose (09/30/2016 7:49 PM CDT) GLUCOSE POC 105 70 - 109 09/30/2016 7:50 PM CDT [facility] LAB ORDERS INTERFACE WHOLE BLOOD SPECIMEN / Unknown 09/30/2016 7:49 PM CDT 09/30/2016 7:50 PM CDT us Generic Conversion Md PASTRANA POCT ORDERABLES - DEVIC E Final Result [facility] LAB ORDERS INTERFACE US documented in this encounter Visit Diagnoses Not on filedocumented in this encounter
--- OUTSIDE RECORDS SUMMARY | 2024-05-10 18:13 | XMS_ITS | Encounter Summary ---
Author Organization [facility] - [facility] Address [address] [place] [address]. [place] [address] [place] [address] Care Team Providers Care Surface Room Shop Optician Name Role Phone Unavailable Primary Care Provider Unavailabl e Encounter Details Date Type Department Care Team (Late st Contact Info) Description 10/03/2016 Orders [place] [address] , Generic Conversion, Social History Tobacco Use [...] GLUCOSE - MCCORMICK DOCKED DEVICE Routine 10/03/2016 6:38 PM CDT documented in this encounter Results * (ABNORMAL) POCT glucose (10/03/2016 6:38 PM CDT) GLUCOSE POC 131(H) 70 - 109 10/03/2016 5:39 PM CDT [facility] LAB ORDERS INTERFACE WHOLE BLOOD SPECIMEN / Unknown 10/03/2016 6:38 PM CDT 10/03/2016 5:39 PM CDT us Generic Conversion Md PASTRANA POCT ORDERABLES - DEVIC E Final Result [facility] LAB ORDERS INTERFACE US documented in this encounter Visit Diagnoses Not on filedocumented in this encounter
--- OUTSIDE RECORDS SUMMARY | 2024-05-10 18:13 | XMS_ITS | Encounter Summary ---
Author Organization [facility] - [facility] Address [address] [place] [address]. [place] [address] [place] [address] Care Team Providers Care Commutator Presser Name Role Phone Unavailable Primary Care Provider Unavailabl e Encounter Details Date Type Department Care Team (Late st Contact Info) Description 09/30/2016 Orders Only ANY CONVERSION ONE [place], [place] [id number] , Generic Conversion, Social History Tobacco Use [...] GLUCOSE - MCCORMICK DOCKED DEVICE Routine 09/30/2016 6:50 PM CDT documented in this encounter Results * (ABNORMAL) POCT glucose (09/30/2016 6:50 PM CDT) GLUCOSE POC 122(H) 70 - 109 09/30/2016 6:[address] [facility] LAB ORDERS INTERFACE WHOLE BLOOD SPECIMEN / Unknown 09/30/2016 6:50 PM CDT 09/30/2016 6:00 PM CDT us Generic Conversion Md PASTRANA POCT ORDERABLES - DEVIC E Final Result [facility] LAB ORDERS INTERFACE US documented in this encounter Visit Diagnoses Not on filedocumented in this encounter
--- OUTSIDE RECORDS SUMMARY | 2024-05-10 18:13 | XMS_ITS | Encounter Summary ---
Author Organization [facility] - [facility] Address [address] [place] [address]. [place] [address] [place] [address] Care Team Providers Care Bench Tool Maker Name Role Phone Unavailable Primary Care Provider Unavailabl e Encounter Details Date Type Department Care Team (Late st Contact Info) Description 10/01/2016 Orders Only [place] [address] , Generic Conversion, Social History Tobacco Use [...] GLUCOSE - MCCORMICK DOCKED DEVICE Routine 10/01/2016 2:01 AM CDT documented in this encounter Results * POCT glucose (10/01/2016 2:01 AM CDT) GLUCOSE POC 101 70 - 109 10/01/2016 1:03 AM CDT [facility] LAB ORDERS INTERFACE WHOLE BLOOD SPECIMEN / Unknown 10/01/2016 2:01 AM CDT 10/01/2016 1:03 AM CDT us Generic Conversion Md PASTRANA POCT ORDERABLES - DEVIC E Final Result [facility] LAB ORDERS INTERFACE US documented in this encounter Visit Diagnoses Not on filedocumented in this encounter
--- OUTSIDE RECORDS SUMMARY | 2024-05-10 18:13 | XMS_ITS | Encounter Summary ---
Author Organization [facility] - [facility] Address [address] [place] [address]. [place] [address] [place] [address] Care Team Providers Care Draw In Hand Name Role Phone Unavailable Primary Care Provider Unavailabl e Encounter Details Date Type Department Care Team (Late st Contact Info) Description 09/30/2016 Orders [place] [address] , Generic Conversion, Social History Tobacco Use [...] GLUCOSE - MCCORMICK DOCKED DEVICE Routine 09/30/2016 9:44 PM CDT documented in this encounter Results * POCT glucose (09/30/2016 9:44 PM CDT) GLUCOSE POC 95 70 - 109 09/30/2016 8:46 PM CDT [facility] LAB ORDERS INTERFACE WHOLE BLOOD SPECIMEN / Unknown 09/30/2016 9:44 PM CDT 09/30/2016 8:46 PM CDT us Generic Conversion Md PASTRANA POCT ORDERABLES - DEVIC E Final Result [facility] LAB ORDERS INTERFACE US documented in this encounter Visit Diagnoses Not on filedocumented in this encounter
--- OUTSIDE RECORDS SUMMARY | 2024-05-10 18:13 | XMS_ITS | Encounter Summary ---
Author Organization [facility] - [facility] Address [address] [place] [address]. [place] [address] [place] [address] Care Team Providers Care Engine Repairer Production Name Role Phone Unavailable Primary Care Provider Unavailabl e Encounter Details Date Type Department Care Team (Late st Contact Info) Description 10/03/2016 Orders [place] [address] , Generic Conversion, Social History Tobacco Use [...] GLUCOSE - MCCORMICK DOCKED DEVICE Routine 10/03/2016 12:28 PM CDT documented in this encounter Results * (ABNORMAL) POCT glucose (10/03/2016 12:28 PM CDT) GLUCOSE POC 196(H) 70 - 109 10/03/2016 11:31 AM CDT [facility] LAB ORDERS INTERFACE WHOLE BLOOD SPECIMEN / Unknown 10/03/2016 12:28 PM CDT 10/03/2016 11:30 AM CDT us Generic Conversion Md PASTRANA POCT ORDERABLES - DEVIC E Final Result [facility] LAB ORDERS INTERFACE US documented in this encounter Visit Diagnoses Not on filedocumented in this encounter
--- OUTSIDE RECORDS SUMMARY | 2024-05-10 18:13 | XMS_ITS | Encounter Summary ---
Author Organization [facility] - [facility] Address [address] [place] [address]. [place] [address] [place] [address] Care Team Providers Care Signal System Testing Maintainer Name Role Phone Unavailable Primary Care Provider Unavailabl e Encounter Details Date Type Department Care Team (Late st Contact Info) Description 09/30/2016 Orders Only ANY CONVERSION ONE [place], [place] [id number] , Generic Conversion, Social History Tobacco Use [...] GLUCOSE - MCCORMICK DOCKED DEVICE Routine 09/30/2016 8:48 PM CDT documented in this encounter Results * POCT glucose (09/30/2016 8:48 PM CDT) GLUCOSE POC 103 70 - 109 09/30/2016 7:57 PM CDT [facility] LAB ORDERS INTERFACE WHOLE BLOOD SPECIMEN / Unknown 09/30/2016 8:48 PM CDT 09/30/2016 7:56 PM CDT us Generic Conversion Md PASTRANA POCT ORDERABLES - DEVIC E Final Result [facility] LAB ORDERS INTERFACE US documented in this encounter Visit Diagnoses Not on filedocumented in this encounter
--- OUTSIDE RECORDS SUMMARY | 2024-05-10 18:13 | XMS_ITS | Encounter Summary ---
Author Organization [facility] Address [address] [place] [address]. [place] [address] [place] [address] Care Team Providers Care Instructor Nurse Name Role Phone Unavailable Primary Care Provider Unavailabl e Encounter Details Date Type Department Care Team (Late st Contact Info) Description 09/30/2016 Orders Only ANY CONVERSION ONE [place], [place] [id number] , Generic Conversion, Social History Tobacco Use [...] Associated Diagnosis Comments TYPE & SCREEN TIMED 09/30/2016 10:39 PM CDT documented in this encounter Results * TYPE & SCREEN (09/30/2016 10:39 PM CDT) ABO/RH O POSITIVE 09/30/2016 11:[address] [facility] ANTIBODY SCREEN NEGATIVE 7 11:[address] [facility] SAMPLE EXPIRATION 10/03/2016 09/30/2016 10:[address] [facility] 09/30/2016 10:3 9 PM CDT 09/30/2016 9:41 PM CDT us Generic Conversion Md PASTRANA BLOOD BANK TEST ORDERAB LES Final Result Performing Organization Address City/State/[facility] Co de Phone Number [facility] [address] [place] [address], [id number] documented in this encounter Visit Diagnoses Not on filedocumented in this encounter
--- OUTSIDE RECORDS SUMMARY | 2024-05-10 18:13 | XMS_ITS | Encounter Summary ---
Author Organization [facility] Address [address] [place] [address]. [place] [address] [place] [address] Care Team Providers Care Rn Emergency Name Role Phone Unavailable Primary Care Provider Unavailabl e Encounter Details Date Type Department Care Team (Late st Contact Info) Description 10/01/2016 Orders [place] [address] , Generic Conversion, Social History [...] Diagnosis Comments BASIC METABOLIC PANEL TIMED 10/01/2016 2:28 PM CDT documented in this encounter Results * (ABNORMAL) BASIC METABOLIC PANEL (10/01/2016 2:28 PM CDT) SODIUM S/P/B 132(L) 135 - 147 MMOL/L 10/01/2016 2:03 PM CDT [facility] POTASSIUM S/P/B 4.2 3.5 - 5.0 MMOL/L 10/01/2016 2:03 PM CDT [facility] CHLORIDE S/P/B 105 98 - 107 MMOL/L 10/01/2016 2:03 PM CDT [facility] CO2 18.9(L) 22 - 29 MMOL/L 10/01/2016 2:03 PM CDT [facility] GLUCOSE 299(H) 70 - 109 MG/DL 10/01/2016 2:03 PM CDT [facility] BUN 4(L) 7 - 19 MG/DL 10/01/2016 2:03 PM CDT [facility] CREATININE S/P/B 0.64 0.60 - 1.10 MG/DL 10/01/2016 2:03 PM CDT [facility] CALCIUM S/P/B 8.9 8.4 - 10.2 MG/DL 10/01/2016 2:03 PM CDT [facility] EGFR NON-AFR. AMER. 118 >60 ML/MIN/1.7 3 M2 10/01/2016 2:03 PM CDT [facility] EGFR AFR. AMER. 143 >60 ML/MIN/1.7 3 M2 10/01/2016 2:03 PM CDT [facility] ANION GAP 8.1 MMOL/L 10/01/2016 2:03 PM CDT [facility] OSMOLALITY (CALC) 273 MOSM/KG 10/01/2016 2:03 PM CDT [facility] PLASMA SPECIMEN / Unknown 10/01/2016 2:28 PM CDT 10/01/2016 1:37 PM CDT us Generic Conversion Md PASTRANA LABORATORY Final R esult [facility] [address] [place] [address], [id number] documented in this encounter Visit Diagnoses Not on filedocumented in this encounter
--- OUTSIDE RECORDS SUMMARY | 2024-05-10 18:13 | XMS_ITS | Encounter Summary ---
Author Organization [facility] Address [address] [place] [address]. [place] [address] [place] [address] Care Team Providers Care Solutions Executive Cloud Sales Name Role Phone Unavailable Primary Care Provider Unavailabl e Encounter Details Date Type Department Care Team (Late st Contact Info) Description 09/30/2016 Orders [place] [address] , Generic Conversion, Social History [...] Associated Diagnosis Comments BASIC METABOLIC PANEL STAT 09/30/2016 10:37 PM CDT documented in this encounter Results * (ABNORMAL) BASIC METABOLIC PANEL (09/30/2016 10:37 PM CDT) SODIUM S/P/B 133(L) 135 - 147 MMOL/L 09/30/2016 10:[address] [facility] POTASSIUM S/P/B 3.8 3.5 - 5.0 MMOL/L 09/30/2016 10:[address] [facility] CHLORIDE S/P/B 107 98 - 107 MMOL/L 09/30/2016 10:[address] [facility] CO2 15.6(L) 22 - 29 MMOL/L 09/30/2016 10:[address] [facility] GLUCOSE 94 70 - 109 MG/DL 09/30/2016 10:[address] [facility] BUN 5(L) 7 - 19 MG/DL 09/30/2016 10:[address] [facility] CREATININE S/P/B 0.61 0.60 - 1.10 MG/DL 09/30/2016 10:[address] [facility] CALCIUM S/P/B 9.5 8.4 - 10.2 MG/DL 09/30/2016 10:[address] [facility] EGFR NON-AFR. AMER. 125 >60 ML/MIN/1.7 3 M2 09/30/2016 10:[address] [facility] EGFR AFR. AMER. 152 >60 ML/MIN/1.7 3 M2 09/30/2016 10:[address] [facility] ANION GAP 10.4 MMOL/L 09/30/2016 10:[address] [facility] OSMOLALITY (CALC) 263 MOSM/KG 09/30/2016 10:[address] [facility] PLASMA SPECIMEN / Unknown 09/30/2016 10:37 PM CDT 09/30/2016 9:41 PM CDT us Generic Conversion Md PASTRANA LABORATORY Final R esult [facility] [address] [place] [address], [id number] documented in this encounter Visit Diagnoses Not on filedocumented in this encounter
--- OUTSIDE RECORDS SUMMARY | 2024-05-10 18:13 | XMS_ITS | Encounter Summary ---
Author Organization [facility] - [facility] Address [address] [place] [address]. [place] [address] [place] [address] Care Team Providers Care Manager Strategic Alliances Name Role Phone Unavailable Primary Care Provider Unavailabl e Encounter Details Date Type Department Care Team (Late st Contact Info) Description 10/01/2016 Orders Only [place] [address] , Generic Conversion, Social History Tobacco Use [...] GLUCOSE - MCCORMICK DOCKED DEVICE Routine 10/01/2016 7:06 AM CDT documented in this encounter Results * POCT glucose (10/01/2016 7:06 AM CDT) GLUCOSE POC 100 70 - 109 10/01/2016 6:08 AM CDT [facility] LAB ORDERS INTERFACE WHOLE BLOOD SPECIMEN / Unknown 10/01/2016 7:06 AM CDT 10/01/2016 6:08 AM CDT us Generic Conversion Md PASTRANA POCT ORDERABLES - DEVIC E Final Result [facility] LAB ORDERS INTERFACE US documented in this encounter Visit Diagnoses Not on filedocumented in this encounter
--- OUTSIDE RECORDS SUMMARY | 2024-05-10 18:14 | XMS_ITS | Encounter Summary ---
Author Organization [facility] Address [address] [place] [address]. [place] [address] [place] [address] Care Team Providers Care Liner Helper Name Role Phone Unavailable Primary Care Provider Unavailabl e Encounter Details Date Type Department Care Team (Latest Contact Info) Description 09/27/2016 Abstract [facility] Social History Tobacco Use Types [...]
--- OUTSIDE RECORDS SUMMARY | 2024-05-10 18:14 | XMS_ITS | Encounter Summary ---
Author Organization [facility] - [facility] Address [address] [place] [address]. [place] [address] [place] [address] Care Team Providers Care Assistant Professor Of Life Sciences Name Role Phone Unavailable Primary Care Provider Unavailabl e Encounter Details Date Type Department Care Team (Late st Contact Info) Description 09/28/2016 Orders Only ANY CONVERSION ONE [place], [place] [id number] , Generic Conversion, Social History Tobacco Use [...] POCT GLUCOSE - MCCORMICK DOCKED DEVICE Routine 09/28/2016 7:32 PM CDT documented in this encounter Results * (ABNORMAL) POCT glucose (09/28/2016 7:32 PM CDT) GLUCOSE POC 118(H) 70 - 109 09/28/2016 6:34 PM CDT [facility] LAB ORDERS INTERFACE WHOLE BLOOD SPECIMEN / Unknown 09/28/2016 7:32 PM CDT 09/28/2016 6:34 PM CDT us Generic Conversion Md PASTRANA POCT ORDERABLES - DEVIC E Final Result [facility] LAB ORDERS INTERFACE US documented in this encounter Visit Diagnoses Not on filedocumented in this encounter
--- OUTSIDE RECORDS SUMMARY | 2024-05-10 18:14 | XMS_ITS | Encounter Summary ---
Author Organization [facility] - [facility] Address [address] [place] [address]. [place] [address] [place] [address] Care Team Providers Care Clay Molder Name Role Phone Unavailable Primary Care Provider Unavailabl e Encounter Details Date Type Department Care Team (Late st Contact Info) Description 09/25/2016 Orders [place] [address] , Generic Conversion, Social History Tobacco Use [...] POCT GLUCOSE - MCCORMICK DOCKED DEVICE Routine 09/25/2016 2:06 AM CDT documented in this encounter Results * (ABNORMAL) POCT glucose (09/25/2016 2:06 AM CDT) GLUCOSE POC 150(H) 70 - 109 09/25/2016 1:09 AM CDT [facility] LAB ORDERS INTERFACE WHOLE BLOOD SPECIMEN / Unknown 09/25/2016 2:06 AM CDT 09/25/2016 1:08 AM CDT us Generic Conversion Md PASTRANA POCT ORDERABLES - DEVIC E Final Result [facility] ORDERS INTERFACE US documented in this encounter Visit Diagnoses Not on filedocumented in this encounter
--- OUTSIDE RECORDS SUMMARY | 2024-05-10 18:14 | XMS_ITS | Encounter Summary ---
Author Organization [facility] - [facility] Address [address] [place] [address]. [place] [address] [place] [address] Care Team Providers Care Assignment Manager Name Role Phone Unavailable Primary Care Provider Unavailabl e Encounter Details Date Type Department Care Team (Late st Contact Info) Description 09/28/2016 Orders [place] [address] , Generic Conversion, Social History Tobacco Use [...] GLUCOSE - MCCORMICK DOCKED DEVICE Routine 09/28/2016 3:18 PM CDT documented in this encounter Results * (ABNORMAL) POCT glucose (09/28/2016 3:18 PM CDT) GLUCOSE POC 175(H) 70 - 109 09/28/2016 2:20 PM CDT [facility] ORDERS INTERFACE WHOLE BLOOD SPECIMEN / Unknown 09/28/2016 3:18 PM CDT 09/28/2016 2:20 PM CDT us Generic Conversion Md PASTRANA POCT ORDERABLES - DEVIC E Final Result [facility] ORDERS INTERFACE US documented in this encounter Visit Diagnoses Not on filedocumented in this encounter
--- OUTSIDE RECORDS SUMMARY | 2024-05-10 18:14 | XMS_ITS | Encounter Summary ---
Author Organization [facility] Address [address] [place] [address]. [place] [address] [place] [address] Care Team Providers Care Emergency Vehicle Dispatcher Name Role Phone Unavailable Primary Care Provider Unavailabl e Encounter Details Date Type Department Care Team (Latest Contact Info) Description 09/24/2016 Abstract [facility] Social [...]
--- OUTSIDE RECORDS SUMMARY | 2024-05-10 18:14 | XMS_ITS | Encounter Summary ---
Author Organization [facility] Address [address] [place] [address]. [place] [address] [place] [address] Care Team Providers Care Gas Stove Servicer Helper Name Role Phone Unavailable Primary Care Provider Unavailabl e Encounter Details Date Type Department Care Team (Late st Contact Info) Description 09/30/2016 Orders [place] [address] , Generic Conversion, Social History [...] Associated Diagnosis Comments BASIC METABOLIC PANEL TIMED 09/30/2016 3:41 PM CDT documented in this encounter Results * (ABNORMAL) BASIC METABOLIC PANEL (09/30/2016 3:41 PM CDT) SODIUM S/P/B 133(L) 135 - 147 MMOL/L 09/30/2016 3:22 PM CDT [facility] POTASSIUM S/P/B 4.2 3.5 - 5.0 MMOL/L 09/30/2016 3:22 PM CDT [facility] CHLORIDE S/P/B 105 98 - 107 MMOL/L 09/30/2016 3:22 PM CDT [facility] CO2 12.8(L) 22 - 29 MMOL/L 09/30/2016 3:22 PM CDT [facility] GLUCOSE 143(H) 70 - 109 MG/DL 09/30/2016 3:22 PM CDT [facility] BUN 4(L) 7 - 19 MG/DL 09/30/2016 3:22 PM CDT [facility] CREATININE S/P/B 0.68 0.60 - 1.10 MG/DL 09/30/2016 3:22 PM CDT [facility] CALCIUM S/P/B 10.2 8.4 - 10.2 MG/DL 09/30/2016 3:22 PM CDT [facility] EGFR NON-AFR. AMER. 110 >60 ML/MIN/1.7 3 M2 09/30/2016 3:22 PM CDT [facility] EGFR AFR. AMER. 134 >60 ML/MIN/1.7 3 M2 09/30/2016 3:22 PM CDT [facility] ANION GAP 15.2 MMOL/L 09/30/2016 3:22 PM CDT [facility] OSMOLALITY (CALC) 266 MOSM/KG 09/30/2016 3:22 PM CDT [facility] PLASMA SPECIMEN / Unknown 09/30/2016 3:41 PM CDT 09/30/2016 3:09 PM CDT us Generic Conversion Md PASTRANA LABORATORY Final R esult [facility] [address] [place] [address], [id number] documented in this encounter Visit Diagnoses Not on filedocumented in this encounter
--- OUTSIDE RECORDS SUMMARY | 2024-05-10 18:14 | XMS_ITS | Encounter Summary ---
Author Organization [facility] - [facility] Address [address] [place] [address]. [place] [address] [place] [address] Care Team Providers Care Restaurant Line Cook Name Role Phone Unavailable Primary Care Provider Unavailabl e Encounter Details Date Type Department Care Team (Late st Contact Info) Description 09/30/2016 Orders Only ANY CONVERSION ONE [place], [place] [id number] , Generic Conversion, Social History Tobacco Use [...] GLUCOSE - MCCORMICK DOCKED DEVICE Routine 09/30/2016 1:45 PM CDT documented in this encounter Results * (ABNORMAL) POCT glucose (09/30/2016 1:45 PM CDT) GLUCOSE POC 173(H) 70 - 109 09/30/2016 12:47 PM CDT [facility] LAB ORDERS INTERFACE WHOLE BLOOD SPECIMEN / Unknown 09/30/2016 1:45 PM CDT 09/30/2016 12:47 PM CDT us Generic Conversion Md PASTRANA POCT ORDERABLES - DEVIC E Final Result [facility] LAB ORDERS INTERFACE US documented in this encounter Visit Diagnoses Not on filedocumented in this encounter
--- OUTSIDE RECORDS SUMMARY | 2024-05-10 18:14 | XMS_ITS | Encounter Summary ---
Author Organization [facility] - [facility] Address [address] [place] [address]. [place] [address] [place] [address] Care Team Providers Care Tutor Coordinator Name Role Phone Unavailable Primary Care Provider Unavailabl e Encounter Details Date Type Department Care Team (Late st Contact Info) Description 09/29/2016 [place] [address] , Generic Conversion, Social History Tobacco Use [...] POCT GLUCOSE - MCCORMICK DOCKED DEVICE Routine 09/29/2016 10:22 AM CDT documented in this encounter Results * (ABNORMAL) POCT glucose (09/29/2016 10:22 AM CDT) GLUCOSE POC 150(H) 70 - 109 09/29/2016 2:00 PM CDT [facility] LAB ORDERS INTERFACE WHOLE BLOOD SPECIMEN / Unknown 09/29/2016 10:22 AM CDT 09/29/2016 2:00 PM CDT us Generic Conversion Md PASTRANA POCT ORDERABLES - DEVIC E Final Result [facility] LAB ORDERS INTERFACE US documented in this encounter Visit Diagnoses Not on filedocumented in this encounter
--- OUTSIDE RECORDS SUMMARY | 2024-05-10 18:14 | XMS_ITS | Encounter Summary ---
Author Organization [facility] - [facility] Address [address] [place] [address]. [place] [address] [place] [address] Care Team Providers Care Supervisor Screen Printing Name Role Phone Unavailable Primary Care Provider Unavailabl e Encounter Details Date Type Department Care Team (Late st Contact Info) Description 09/24/2016 Orders [place] [address] , Generic Conversion, Social History Tobacco Use [...] POCT GLUCOSE - MCCORMICK DOCKED DEVICE Routine 09/24/2016 5:56 AM CDT documented in this encounter Results * POCT glucose (09/24/2016 5:56 AM CDT) GLUCOSE POC 98 70 - 109 09/24/2016 4:58 AM CDT [facility] LAB ORDERS INTERFACE WHOLE BLOOD SPECIMEN / Unknown 09/24/2016 5:56 AM CDT 09/24/2016 4:58 AM CDT us Generic Conversion Md PASTRANA POCT ORDERABLES - DEVIC E Final Result [facility] LAB ORDERS INTERFACE US documented in this encounter Visit Diagnoses Not on filedocumented in this encounter
--- OUTSIDE RECORDS SUMMARY | 2024-05-10 18:14 | XMS_ITS | Encounter Summary ---
Author Organization [facility] - [facility] Address [address] [place] [address]. [place] [address] [place] [address] Care Team Providers Care Systems Software Developer Name Role Phone Unavailable Primary Care Provider Unavailabl e Encounter Details Date Type Department Care Team (Late st Contact Info) Description 09/25/2016 Orders [place] [address] , Generic Conversion, Social History Tobacco Use [...] GLUCOSE - MCCORMICK DOCKED DEVICE Routine 09/25/2016 11:34 AM CDT documented in this encounter Results * POCT glucose (09/25/2016 11:34 AM CDT) GLUCOSE POC 96 70 - 109 09/25/2016 10:36 AM CDT [facility] LAB ORDERS INTERFACE WHOLE BLOOD SPECIMEN / Unknown 09/25/2016 11:34 AM CDT 09/25/2016 10:36 AM CDT us Generic Conversion Md PASTRANA POCT ORDERABLES - DEVIC E Final Result [facility] LAB ORDERS INTERFACE US documented in this encounter Visit Diagnoses Not on filedocumented in this encounter
--- OUTSIDE RECORDS SUMMARY | 2024-05-10 18:14 | XMS_ITS | Encounter Summary ---
Author Organization [facility] Address [address] [place] [address]. [place] [address] [place] [address] Care Team Providers Care Shank Pinner Name Role Phone Unavailable Primary Care Provider Unavailabl e Encounter Details Date Type Department Care Team (Latest Contact Info) Description 09/26/2016 Abstract [facility] Social History Tobacco Use [...]
--- OUTSIDE RECORDS SUMMARY | 2024-05-10 18:14 | XMS_ITS | Encounter Summary ---
Author Organization [facility] / [facility] Address [address] [place] [address]. [place] [address] [place] [address] Care Team Providers Care Flask Handler Name Role Phone Unavailable Primary Care Provider Unavailabl e Encounter Details Date Type Department Care Team (Latest Contact Info) Description 09/28/2016 Abstract [facility] Social History Tobacco Use Types [...]
--- OUTSIDE RECORDS SUMMARY | 2024-05-10 18:14 | XMS_ITS | Encounter Summary ---
Author Organization [facility] - [facility] / [facility] Address [address] [place] [address]. [place] [address] [place] [address] Care Team Providers Care Warehouse Coordinator Name Role Phone Unavailable Primary Care Provider Unavailabl e Encounter Details Date Type Department Care Team (Late st Contact Info) Description 09/27/2016 Orders [place] [address] , Generic Conversion, Social History Tobacco Use [...] POCT GLUCOSE - MCCORMICK DOCKED DEVICE Routine 09/27/2016 9:27 PM CDT documented in this encounter Results * (ABNORMAL) POCT glucose (09/27/2016 9:27 PM CDT) GLUCOSE POC 64(L) 70 - 109 09/27/2016 9:00 PM CDT [facility] LAB ORDERS INTERFACE Comment:RN Notified WHOLE BLOOD SPECIMEN / Unknown 09/27/2016 9:27 PM CDT 09/27/2016 9:00 PM CDT us Generic Conversion Md PASTRANA POCT ORDERABLES - DEVIC E Final Result [facility] LAB ORDERS INTERFACE US documented in this encounter Visit Diagnoses Not on filedocumented in this encounter
--- OUTSIDE RECORDS SUMMARY | 2024-05-10 18:14 | XMS_ITS | Encounter Summary ---
Author Organization [facility] - [facility] Address [address] [place] [address]. [place] [address] [place] [address] Care Team Providers Care Green Building Materials Designer Name Role Phone Unavailable Primary Care Provider Unavailabl e Encounter Details Date Type Department Care Team (Late st Contact Info) Description 09/23/2016 Orders Only ANY CONVERSION ONE [place], [place] [id number] , Generic Conversion, Social History Tobacco Use [...] POCT GLUCOSE - MCCORMICK DOCKED DEVICE Routine 09/23/2016 11:23 PM CDT documented in this encounter Results * POCT glucose (09/23/2016 11:23 PM CDT) GLUCOSE POC 89 70 - 109 09/23/2016 10:25 PM CDT [facility] LAB ORDERS INTERFACE WHOLE BLOOD SPECIMEN / Unknown 09/23/2016 11:23 PM CDT 09/23/2016 10:25 PM CDT us Generic Conversion Md PASTRANA POCT ORDERABLES - DEVIC E Final Result [facility] LAB ORDERS INTERFACE US documented in this encounter Visit Diagnoses Not on filedocumented in this encounter
--- OUTSIDE RECORDS SUMMARY | 2024-05-10 18:14 | XMS_ITS | Encounter Summary ---
Author Organization [facility] Address [address] [place] [address]. [place] [address] [place] [address] Care Team Providers Care Terrazzo Installer Name Role Phone Unavailable Primary Care Provider Unavailabl e Encounter Details Date Type Department Care Team (Late st Contact Info) Description 09/23/2016 Orders Only [place] [address] , Generic Conversion, Social History [...] Associated Diagnosis Comments BASIC METABOLIC PANEL TIMED 09/23/2016 9:43 PM CDT documented in this encounter Results * (ABNORMAL) BASIC METABOLIC PANEL (09/23/2016 9:43 PM CDT) SODIUM S/P/B 135 135 - 147 MMOL/L 09/23/2016 9:[address] [facility] POTASSIUM S/P/B 3.9 3.5 - 5.0 MMOL/L 09/23/2016 9:[address] [facility] CHLORIDE S/P/B 111(H) 98 - 107 MMOL/L 09/23/2016 9:[address] [facility] CO2 18.4(L) 22 - 29 MMOL/L 09/23/2016 9:[address] [facility] GLUCOSE 101 70 - 109 MG/DL 09/23/2016 9:[address] [facility] BUN <2(L) 7 - 19 MG/DL 09/23/2016 9:[address] [facility] CREATININE S/P/B 0.55(L) 0.60 - 1.10 MG/DL 09/23/2016 9:[address] [facility] CALCIUM S/P/B 9.6 8.4 - 10.2 MG/DL 09/23/2016 9:[address] [facility] EGFR NON-AFR. AMER. 141 >60 ML/MIN/1. 73 M2 09/23/2016 10:[address] [facility] EGFR AFR. AMER. 171 >60 ML/MIN/1. 73 M2 09/23/2016 10:[address] [facility] ANION GAP 5.6 MMOL/L 09/23/2016 10:[address] [facility] OSMOLALITY (CALC) UNABLE TO PERFORM TEST 262 - 277 MOSM/KG 09/23/2016 11:[address] [facility] PLASMA SPECIMEN / Unknown 09/23/2016 9:43 PM CDT 09/23/2016 8:50 PM CDT us Generic Conversion Md PASTRANA LABORATORY Final R esult [facility] [address] [place] [address], [id number] documented in this encounter Visit Diagnoses Not on filedocumented in this encounter
--- OUTSIDE RECORDS SUMMARY | 2024-05-10 18:14 | XMS_ITS | Encounter Summary ---
Author Organization [facility] - [facility] Address [address] [place] [address]. [place] [address] [place] [address] Care Team Providers Care Honing Machine Try Out Setter Name Role Phone Unavailable Primary Care Provider Unavailabl e Encounter Details Date Type Department Care Team (Late st Contact Info) Description 09/24/2016 Orders [place] [address] , Generic Conversion, Social History Tobacco Use [...] GLUCOSE - MCCORMICK DOCKED DEVICE Routine 09/24/2016 4:24 AM CDT documented in this encounter Results * POCT glucose (09/24/2016 4:24 AM CDT) GLUCOSE POC 92 70 - 109 09/24/2016 3:25 AM CDT [facility] LAB ORDERS INTERFACE WHOLE BLOOD SPECIMEN / Unknown 09/24/2016 4:24 AM CDT 09/24/2016 3:25 AM CDT us Generic Conversion Md PASTRANA POCT ORDERABLES - DEVIC E Final Result [facility] LAB ORDERS INTERFACE US documented in this encounter Visit Diagnoses Not on filedocumented in this encounter
--- OUTSIDE RECORDS SUMMARY | 2024-05-10 18:14 | XMS_ITS | Encounter Summary ---
Author Organization [facility] - [facility] Address [address] [place] [address]. [place] [address] [place] [address] Care Team Providers Care Smoke Control Supervisor Name Role Phone Unavailable Primary Care Provider Unavailabl e Encounter Details Date Type Department Care Team (Late st Contact Info) Description 09/26/2016 Orders [place] [address] , Generic Conversion, Social History Tobacco Use [...] POCT GLUCOSE - MCCORMICK DOCKED DEVICE Routine 09/26/2016 2:11 PM CDT documented in this encounter Results * (ABNORMAL) POCT glucose (09/26/2016 2:11 PM CDT) GLUCOSE POC 45(L) 70 - 109 09/26/2016 1:13 PM CDT [facility] LAB ORDERS INTERFACE Comment:RN Notified WHOLE BLOOD SPECIMEN / Unknown 09/26/2016 2:11 PM CDT 09/26/2016 1:13 PM CDT us Generic Conversion Md PASTRANA POCT ORDERABLES - DEVIC E Final Result [facility] LAB ORDERS INTERFACE US documented in this encounter Visit Diagnoses Not on filedocumented in this encounter
--- OUTSIDE RECORDS SUMMARY | 2024-05-10 18:14 | XMS_ITS | Encounter Summary ---
Author Organization [facility] - [facility] Address [address] [place] [address]. [place] [address] [place] [address] Care Team Providers Care Staff Electronic Warfare Officer Name Role Phone Unavailable Primary Care Provider Unavailabl e Encounter Details Date Type Department Care Team (Late st Contact Info) Description 09/24/2016 Orders Only ANY CONVERSION ONE [place], [place] [id number] , Generic Conversion, Social History Tobacco Use [...] GLUCOSE - MCCORMICK DOCKED DEVICE Routine 09/24/2016 7:13 PM CDT documented in this encounter Results * (ABNORMAL) POCT glucose (09/24/2016 7:13 PM CDT) GLUCOSE POC 132(H) 70 - 109 09/24/2016 6:15 PM CDT [facility] LAB ORDERS INTERFACE Comment:RN Notified WHOLE BLOOD SPECIMEN / Unknown 09/24/2016 7:13 PM CDT 09/24/2016 6:15 PM CDT us Generic Conversion Md PASTRANA POCT ORDERABLES - DEVIC E Final Result [facility] LAB ORDERS INTERFACE US documented in this encounter Visit Diagnoses Not on filedocumented in this encounter
--- OUTSIDE RECORDS SUMMARY | 2024-05-10 18:14 | XMS_ITS | Encounter Summary ---
Author Organization [facility] - [facility] Address [address] [place] [address]. [place] [address] [place] [address] Care Team Providers Care Rn Gynecology Name Role Phone Unavailable Primary Care Provider Unavailabl e Encounter Details Date Type Department Care Team (Late st Contact Info) Description 09/30/2016 Orders [place] [address] , Generic Conversion, Social History Tobacco Use [...] GLUCOSE - MCCORMICK DOCKED DEVICE Routine 09/30/2016 6:16 AM CDT documented in this encounter Results * (ABNORMAL) POCT glucose (09/30/2016 6:16 AM CDT) GLUCOSE POC 131(H) 70 - 109 09/30/2016 5:19 AM CDT [facility] LAB ORDERS INTERFACE WHOLE BLOOD SPECIMEN / Unknown 09/30/2016 6:16 AM CDT 09/30/2016 5:19 AM CDT us Generic Conversion Md PASTRANA POCT ORDERABLES - DEVIC E Final Result [facility] LAB ORDERS INTERFACE US documented in this encounter Visit Diagnoses Not on filedocumented in this encounter
--- OUTSIDE RECORDS SUMMARY | 2024-05-10 18:14 | XMS_ITS | Encounter Summary ---
Author Organization [facility] - [facility] Address [address] [place] [address]. [place] [address] [place] [address] Care Team Providers Care Hogshead Salvage Name Role Phone Unavailable Primary Care Provider Unavailabl e Encounter Details Date Type Department Care Team (Late st Contact Info) Description 09/23/2016 Orders Only ANY CONVERSION ONE [place], [place] [id number] , Generic Conversion, Social History Tobacco Use [...] GLUCOSE - MCCORMICK DOCKED DEVICE Routine 09/23/2016 9:17 PM CDT documented in this encounter Results * (ABNORMAL) POCT glucose (09/23/2016 9:17 PM CDT) GLUCOSE POC 112(H) 70 - 109 09/23/2016 8:18 PM CDT [facility] LAB ORDERS INTERFACE WHOLE BLOOD SPECIMEN / Unknown 09/23/2016 9:17 PM CDT 09/23/2016 8:18 PM CDT us Generic Conversion Md PASTRANA POCT ORDERABLES - DEVIC E Final Result [facility] LAB ORDERS INTERFACE US documented in this encounter Visit Diagnoses Not on filedocumented in this encounter
--- OUTSIDE RECORDS SUMMARY | 2024-05-10 18:14 | XMS_ITS | Encounter Summary ---
Author Organization [facility] - [facility] Address [address] [place] [address]. [place] [address] [place] [address] Care Team Providers Care Division Supervisor Name Role Phone Unavailable Primary Care Provider Unavailabl e Encounter Details Date Type Department Care Team (Late st Contact Info) Description 09/24/2016 Orders [place] [address] , Generic Conversion, Social History Tobacco Use [...] GLUCOSE - MCCORMICK DOCKED DEVICE Routine 09/24/2016 8:20 AM CDT documented in this encounter Results * POCT glucose (09/24/2016 8:20 AM CDT) GLUCOSE POC 94 70 - 109 09/24/2016 7:29 AM CDT [facility] LAB ORDERS INTERFACE Comment:RN Notified WHOLE BLOOD SPECIMEN / Unknown 09/24/2016 8:20 AM CDT 09/24/2016 7:28 AM CDT us Generic Conversion Md PASTRANA POCT ORDERABLES - DEVIC E Final Result [facility] LAB ORDERS INTERFACE US documented in this encounter Visit Diagnoses Not on filedocumented in this encounter
--- OUTSIDE RECORDS SUMMARY | 2024-05-10 18:14 | XMS_ITS | Encounter Summary ---
Author Organization [facility] - [facility] Address [address] [place] [address]. [place] [address] [place] [address] Care Team Providers Care Aircraft Worker Name Role Phone Unavailable Primary Care Provider Unavailabl e Encounter Details Date Type Department Care Team (Late st Contact Info) Description 09/30/2016 Orders Only ANY CONVERSION ONE [place], [place] [id number] , Generic Conversion, Social History Tobacco Use [...] GLUCOSE - MCCORMICK DOCKED DEVICE Routine 09/30/2016 12:22 AM CDT documented in this encounter Results * POCT glucose (09/30/2016 12:22 AM CDT) GLUCOSE POC 85 70 - 109 09/29/2016 11:24 PM CDT [facility] LAB ORDERS INTERFACE WHOLE BLOOD SPECIMEN / Unknown 09/30/2016 12:22 AM CDT 09/29/2016 11:24 PM CDT us Generic Conversion Md PASTRANA POCT ORDERABLES - DEVIC E Final Result [facility] LAB ORDERS INTERFACE US documented in this encounter Visit Diagnoses Not on filedocumented in this encounter
--- OUTSIDE RECORDS SUMMARY | 2024-05-10 18:14 | XMS_ITS | Encounter Summary ---
Author Organization [facility] - [facility] Address [address] [place] [address]. [place] [address] [place] [address] Care Team Providers Care Gameplay Programmer Name Role Phone Unavailable Primary Care Provider Unavailabl e Encounter Details Date Type Department Care Team (Late st Contact Info) Description 09/24/2016 Orders [place] [address] , Generic Conversion, Social History Tobacco Use [...] GLUCOSE - MCCORMICK DOCKED DEVICE Routine 09/24/2016 4:09 PM CDT documented in this encounter Results * POCT glucose (09/24/2016 4:09 PM CDT) GLUCOSE POC 94 70 - 109 09/24/2016 3:14 PM CDT [facility] LAB ORDERS INTERFACE Comment:RN Notified WHOLE BLOOD SPECIMEN / Unknown 09/24/2016 4:09 PM CDT 09/24/2016 3:14 PM CDT us Generic Conversion Md PASTRANA POCT ORDERABLES - DEVIC E Final Result [facility] LAB ORDERS INTERFACE US documented in this encounter Visit Diagnoses Not on filedocumented in this encounter
--- OUTSIDE RECORDS SUMMARY | 2024-05-10 18:14 | XMS_ITS | Encounter Summary ---
Author Organization [facility] Address [address] [place] [address]. [place] [address] [place] [address] Care Team Providers Care Thermo Cementing Folder Operator Name Role Phone Unavailable Primary Care Provider Unavailabl e Encounter Details Date Type Department Care Team (Latest Contact Info) Description 09/23/2016 Abstract [facility] Social History Tobacco Use [...]
--- OUTSIDE RECORDS SUMMARY | 2024-05-10 18:14 | XMS_ITS | Encounter Summary ---
Author Organization [facility] - [facility] Address [address] [place] [address]. [place] [address] [place] [address] Care Team Providers Care Reporting Analyst Name Role Phone Unavailable Primary Care Provider Unavailabl e Encounter Details Date Type Department Care Team (Late st Contact Info) Description 09/27/2016 Orders [place] [address] , Generic Conversion, Social History Tobacco Use [...] GLUCOSE - MCCORMICK DOCKED DEVICE Routine 09/27/2016 9:52 PM CDT documented in this encounter Results * POCT glucose (09/27/2016 9:52 PM CDT) GLUCOSE POC 106 70 - 109 09/27/2016 9:00 PM CDT [facility] LAB ORDERS INTERFACE Comment:RN Notified WHOLE BLOOD SPECIMEN / Unknown 09/27/2016 9:52 PM CDT 09/27/2016 9:00 PM CDT us Generic Conversion Md PASTRANA POCT ORDERABLES - DEVIC E Final Result [facility] LAB ORDERS INTERFACE US documented in this encounter Visit Diagnoses Not on filedocumented in this encounter
--- OUTSIDE RECORDS SUMMARY | 2024-05-10 18:14 | XMS_ITS | Encounter Summary ---
Author Organization [facility] - [facility] Address [address] [place] [address]. [place] [address] [place] [address] Care Team Providers Care Collection Team Lead Name Role Phone Unavailable Primary Care Provider Unavailabl e Encounter Details Date Type Department Care Team (Late st Contact Info) Description 09/29/2016 Orders [place] [address] , Generic Conversion, Social History Tobacco Use [...] GLUCOSE - MCCORMICK DOCKED DEVICE Routine 09/29/2016 12:27 AM CDT documented in this encounter Results * (ABNORMAL) POCT glucose (09/29/2016 12:27 AM CDT) GLUCOSE POC 170(H) 70 - 109 09/28/2016 11:30 PM CDT [facility] LAB ORDERS INTERFACE WHOLE BLOOD SPECIMEN / Unknown 09/29/2016 12:27 AM CDT 09/28/2016 11:30 PM CDT us Generic Conversion Md PASTRANA POCT ORDERABLES - DEVIC E Final Result [facility] LAB ORDERS INTERFACE US documented in this encounter Visit Diagnoses Not on filedocumented in this encounter
--- OUTSIDE RECORDS SUMMARY | 2024-05-10 18:14 | XMS_ITS | Encounter Summary ---
Author Organization [facility] Address [address] [place] [address]. [place] [address] [place] [address] Care Team Providers Care Full Decator Operator Name Role Phone Unavailable Primary Care Provider Unavailabl e Encounter Details Date Type Department Care Team (Late st Contact Info) Description 09/27/2016 Orders [place] [address] Md, Generic Conversion, Social History [...] Procedure Name Priority Date/Time Associated Diagnosis Comments STREP GROUP B RAPID Nurse Collected Priority 09/27/2016 6:30 PM CDT documented in this encounter Results * STREP GROUP B RAPID (09/27/2016 6:30 PM CDT) GROUP B STREP DNA Beta Strep Group B detected. 09/29/2016 2:[address] [facility] Comment: RESULTS, SPECIMEN DATE, TIME WERE READ BACK BY BENJAMIN HERNANDEZ AT 1526.[facility] SOURCE GENITAL/RE CTAL 09/27/2016 4:[address] [facility] 09/27/2016 6:30 PM CDT 09/27/2016 5:44 PM CDT us Generic Conversion Md PASTRANA MICROBIOLOGY - GENERAL ORDERABLES Final Result Performing Organization Address City/State/[facility] Co de Phone Number [facility] [address] [place] [address], [id number] documented in this encounter Visit Diagnoses Not on filedocumented in this encounter
--- OUTSIDE RECORDS SUMMARY | 2024-05-10 18:14 | XMS_ITS | Encounter Summary ---
Author Organization [facility] - [facility] Address [address] [place] [address]. [place] [address] [place] [address] Care Team Providers Care Automobile Parts Assembler Name Role Phone Unavailable Primary Care Provider Unavailabl e Encounter Details Date Type Department Care Team (Late st Contact Info) Description 09/25/2016 Orders Only ANY CONVERSION ONE [place], [place] [id number] , Generic Conversion, Social History Tobacco Use [...] GLUCOSE - MCCORMICK DOCKED DEVICE Routine 09/25/2016 2:29 PM CDT documented in this encounter Results * (ABNORMAL) POCT glucose (09/25/2016 2:29 PM CDT) GLUCOSE POC 152(H) 70 - 109 09/25/2016 1:31 PM CDT [facility] LAB ORDERS INTERFACE WHOLE BLOOD SPECIMEN / Unknown 09/25/2016 2:29 PM CDT 09/25/2016 1:31 PM CDT us Generic Conversion Md PASTRANA POCT ORDERABLES - DEVIC E Final Result [facility] LAB ORDERS INTERFACE US documented in this encounter Visit Diagnoses Not on filedocumented in this encounter
--- OUTSIDE RECORDS SUMMARY | 2024-05-10 18:14 | XMS_ITS | Encounter Summary ---
Author Organization [facility] Address [address] [place] [address]. [place] [address] [place] [address] Care Team Providers Care Mosaic Floor Layer Name Role Phone Unavailable Primary Care Provider Unavailabl e Encounter Details Date Type Department Care Team (Late st Contact Info) Description 09/24/2016 Orders [place] [address] , Generic Conversion, Social History [...] Associated Diagnosis Comments BASIC METABOLIC PANEL TIMED 09/24/2016 4:35 AM CDT documented in this encounter Results * (ABNORMAL) BASIC METABOLIC PANEL (09/24/2016 4:35 AM CDT) SODIUM S/P/B 134(L) 135 - 147 MMOL/L 09/24/2016 4:10 AM CDT [facility] POTASSIUM S/P/B 4.1 3.5 - 5.0 MMOL/L 09/24/2016 4:10 AM CDT [facility] CHLORIDE S/P/B 110(H) 98 - 107 MMOL/L 09/24/2016 4:10 AM CDT [facility] CO2 18.8(L) 22 - 29 MMOL/L 09/24/2016 4:10 AM CDT [facility] GLUCOSE 93 70 - 109 MG/DL 09/24/2016 4:10 AM CDT [facility] BUN <2(L) 7 - 19 MG/DL 09/24/2016 4:13 AM CDT [facility] CREATININE S/P/B 0.55(L) 0.60 - 1.10 MG/DL 09/24/2016 4:10 AM CDT [facility] CALCIUM S/P/B 9.2 8.4 - 10.2 MG/DL 09/24/2016 4:10 AM CDT [facility] EGFR NON-AFR. AMER. 141 >60 ML/MIN/1. 73 M2 09/24/2016 4:10 AM CDT [facility] EGFR AFR. AMER. 171 >60 ML/MIN/1. 73 M2 09/24/2016 4:10 AM CDT [facility] ANION GAP 5.2 MMOL/L 09/24/2016 4:10 AM CDT [facility] OSMOLALITY (CALC) UNABLE TO PERFORM TEST MOSM/KG 09/24/2016 5:36 AM CDT [facility] PLASMA SPECIMEN / Unknown 09/24/2016 4:35 AM CDT 09/24/2016 3:36 AM CDT us Generic Conversion Md [facility] Final R esult [facility] [address] [place] [address], [id number] documented in this encounter Visit Diagnoses Not on filedocumented in this encounter
--- OUTSIDE RECORDS SUMMARY | 2024-05-10 18:14 | XMS_ITS | Encounter Summary ---
Author Organization [facility] - [facility] Address [address] [place] [address]. [place] [address] [place] [address] Care Team Providers Care Waterworks Chief Engineer Name Role Phone Unavailable Primary Care Provider Unavailabl e Encounter Details Date Type Department Care Team (Late st Contact Info) Description 09/27/2016 [place] [address] , Generic Conversion, Social History Tobacco Use [...] GLUCOSE - MCCORMICK DOCKED DEVICE Routine 09/27/2016 4:44 PM CDT documented in this encounter Results * (ABNORMAL) POCT glucose (09/27/2016 4:44 PM CDT) GLUCOSE POC 55(L) 70 - 109 09/27/2016 3:45 PM CDT [facility] ORDERS INTERFACE Comment:RN Notified WHOLE BLOOD SPECIMEN / Unknown 09/27/2016 4:44 PM CDT 09/27/2016 3:45 PM CDT us Generic Conversion Md [facility] POCT ORDERABLES - DEVIC E Final Result [facility] ORDERS INTERFACE US documented in this encounter Visit Diagnoses Not on filedocumented in this encounter
--- OUTSIDE RECORDS SUMMARY | 2024-05-10 18:14 | XMS_ITS | Encounter Summary ---
Author Organization [facility] - [facility] Address [address] [place] [address]. [place] [address] [place] [address] Care Team Providers Care Child Health Associate Name Role Phone Unavailable Primary Care Provider Unavailabl e Encounter Details Date Type Department Care Team (Late st Contact Info) Description 09/27/2016 Orders [place] [address] , Generic Conversion, Social History Tobacco Use [...] GLUCOSE - MCCORMICK DOCKED DEVICE Routine 09/27/2016 3:06 AM CDT documented in this encounter Results * POCT glucose (09/27/2016 3:06 AM CDT) GLUCOSE POC 82 70 - 109 09/27/2016 2:08 AM CDT [facility] ORDERS INTERFACE WHOLE BLOOD SPECIMEN / Unknown 09/27/2016 3:06 AM CDT 09/27/2016 2:07 AM CDT us Generic Conversion Md [facility] POCT ORDERABLES - DEVIC E Final Result [facility] ORDERS INTERFACE US documented in this encounter Visit Diagnoses Not on filedocumented in this encounter
--- OUTSIDE RECORDS SUMMARY | 2024-05-10 18:14 | XMS_ITS | Encounter Summary ---
Author Organization [facility] - [facility] Address [address] [place] [address]. [place] [address] [place] [address] Care Team Providers Care Wire Steward Name Role Phone Unavailable Primary Care Provider Unavailabl e Encounter Details Date Type Department Care Team (Late st Contact Info) Description 09/23/2016 Orders Only ANY CONVERSION ONE [place], [place] [id number] , Generic Conversion, Social History Tobacco Use [...] GLUCOSE - MCCORMICK DOCKED DEVICE Routine 09/23/2016 8:19 PM CDT documented in this encounter Results * POCT glucose (09/23/2016 8:19 PM CDT) GLUCOSE POC 99 70 - 109 09/23/2016 7:22 PM CDT [facility] ORDERS INTERFACE WHOLE BLOOD SPECIMEN / Unknown 09/23/2016 8:19 PM CDT 09/23/2016 7:22 PM CDT us Generic Conversion Md [facility] POCT ORDERABLES - DEVIC E Final Result [facility] ORDERS INTERFACE US documented in this encounter Visit Diagnoses Not on filedocumented in this encounter
--- OUTSIDE RECORDS SUMMARY | 2024-05-10 18:14 | XMS_ITS | Encounter Summary ---
Author Organization [facility] - [facility] Address [address] [place] [address]. [place] [address] [place] [address] Care Team Providers Care Behavioral Therapy Coordinator Name Role Phone Unavailable Primary Care Provider Unavailabl e Encounter Details Date Type Department Care Team (Late st Contact Info) Description 09/23/2016 Orders [place] [address] , Generic Conversion, Social History Tobacco Use [...] GLUCOSE - MCCORMICK DOCKED DEVICE Routine 09/23/2016 4:04 PM CDT documented in this encounter Results * POCT glucose (09/23/2016 4:04 PM CDT) GLUCOSE POC 76 70 - 109 09/23/2016 3:08 PM CDT [facility] ORDERS INTERFACE WHOLE BLOOD SPECIMEN / Unknown 09/23/2016 4:04 PM CDT 09/23/2016 3:08 PM CDT us Generic Conversion Md [facility] POCT ORDERABLES - DEVIC E Final Result [facility] ORDERS INTERFACE US documented in this encounter Visit Diagnoses Not on filedocumented in this encounter
--- OUTSIDE RECORDS SUMMARY | 2024-05-10 18:14 | XMS_ITS | Encounter Summary ---
Author Organization [facility] - [facility] Address [address] [place] [address]. [place] [address] [place] [address] Care Team Providers Care Visual Basic Developer Name Role Phone Unavailable Primary Care Provider Unavailabl e Encounter Details Date Type Department Care Team (Late st Contact Info) Description 09/26/2016 Orders Only ANY CONVERSION ONE [place], [place] [id number] , Generic Conversion, Social History Tobacco Use [...] GLUCOSE - MCCORMICK DOCKED DEVICE Routine 09/26/2016 11:31 PM CDT documented in this encounter Results * (ABNORMAL) POCT glucose (09/26/2016 11:31 PM CDT) GLUCOSE POC 40(L) 70 - 109 09/26/2016 10:35 PM CDT [facility] ORDERS INTERFACE Comment:RN Notified WHOLE BLOOD SPECIMEN / Unknown 09/26/2016 11:31 PM CDT 09/26/2016 10:35 PM CDT us Generic Conversion Md [facility] POCT ORDERABLES - DEVIC E Final Result [facility] ORDERS INTERFACE US documented in this encounter Visit Diagnoses Not on filedocumented in this encounter
--- OUTSIDE RECORDS SUMMARY | 2024-05-10 18:14 | XMS_ITS | Encounter Summary ---
Author Organization [facility] - [facility] Address [address] [place] [address]. [place] [address] [place] [address] Care Team Providers Care Loom Fixer Helper Name Role Phone Unavailable Primary Care Provider Unavailabl e Encounter Details Date Type Department Care Team (Late st Contact Info) Description 09/23/2016 Orders Only ANY CONVERSION ONE [place], [place] [id number] , Generic Conversion, Social History Tobacco Use [...] GLUCOSE - MCCORMICK DOCKED DEVICE Routine 09/23/2016 6:03 PM CDT documented in this encounter Results * (ABNORMAL) POCT glucose (09/23/2016 6:03 PM CDT) GLUCOSE POC 112(H) 70 - 109 09/23/2016 5:07 PM CDT [facility] ORDERS INTERFACE WHOLE BLOOD SPECIMEN / Unknown 09/23/2016 6:03 PM CDT 09/23/2016 5:07 PM CDT us Generic Conversion Md [facility] POCT ORDERABLES - DEVIC E Final Result [facility] ORDERS INTERFACE US documented in this encounter Visit Diagnoses Not on filedocumented in this encounter
--- OUTSIDE RECORDS SUMMARY | 2024-05-10 18:14 | XMS_ITS | Encounter Summary ---
Author Organization [facility] - [facility] Address [address] [place] [address]. [place] [address] [place] [address] Care Team Providers Care Java Web User Interface Developer Name Role Phone Unavailable Primary Care Provider Unavailabl e Encounter Details Date Type Department Care Team (Late st Contact Info) Description 09/28/2016 Orders [place] [address] , Generic Conversion, Social History Tobacco Use [...] GLUCOSE - MCCORMICK DOCKED DEVICE Routine 09/28/2016 9:13 AM CDT documented in this encounter Results * (ABNORMAL) POCT glucose (09/28/2016 9:13 AM CDT) GLUCOSE POC 122(H) 70 - 109 09/28/2016 8:16 AM CDT [facility] ORDERS INTERFACE WHOLE BLOOD SPECIMEN / Unknown 09/28/2016 9:13 AM CDT 09/28/2016 8:15 AM CDT us Generic Conversion Md [facility] POCT ORDERABLES - DEVIC E Final Result [facility] ORDERS INTERFACE US documented in this encounter Visit Diagnoses Not on filedocumented in this encounter
--- OUTSIDE RECORDS SUMMARY | 2024-05-10 18:14 | XMS_ITS | Encounter Summary ---
Author Organization [facility] - [facility] Address [address] [place] [address]. [place] [address] [place] [address] Care Team Providers Care Road Inspector Name Role Phone Unavailable Primary Care Provider Unavailabl e Encounter Details Date Type Department Care Team (Late st Contact Info) Description 09/27/2016 Orders [place] [address] , Generic Conversion, Social History Tobacco Use [...] GLUCOSE - MCCORMICK DOCKED DEVICE Routine 09/27/2016 8:42 AM CDT documented in this encounter Results * POCT glucose (09/27/2016 8:42 AM CDT) GLUCOSE POC 75 70 - 109 09/27/2016 7:46 AM CDT [facility] ORDERS INTERFACE Comment:RN Notified WHOLE BLOOD SPECIMEN / Unknown 09/27/2016 8:42 AM CDT 09/27/2016 7:45 AM CDT us Generic Conversion Md [facility] POCT ORDERABLES - DEVIC E Final Result [facility] ORDERS INTERFACE US documented in this encounter Visit Diagnoses Not on filedocumented in this encounter
--- OUTSIDE RECORDS SUMMARY | 2024-05-10 18:14 | XMS_ITS | Encounter Summary ---
Author Organization [facility] - [facility] Address [address] [place] [address]. [place] [address] [place] [address] Care Team Providers Care Bicycle Repairer Name Role Phone Unavailable Primary Care Provider Unavailabl e Encounter Details Date Type Department Care Team (Late st Contact Info) Description 09/26/2016 Orders Only ANY CONVERSION ONE [place], [place] [id number] , Generic Conversion, Social History Tobacco Use [...] GLUCOSE - MCCORMICK DOCKED DEVICE Routine 09/26/2016 10:49 PM CDT documented in this encounter Results * (ABNORMAL) POCT glucose (09/26/2016 10:49 PM CDT) GLUCOSE POC 58(L) 70 - 109 09/26/2016 9:55 PM CDT [facility] ORDERS INTERFACE WHOLE BLOOD SPECIMEN / Unknown 09/26/2016 10:49 PM CDT 09/26/2016 9:55 PM CDT us Generic Conversion Md [facility] POCT ORDERABLES - DEVIC E Final Result [facility] ORDERS INTERFACE US documented in this encounter Visit Diagnoses Not on filedocumented in this encounter
--- OUTSIDE RECORDS SUMMARY | 2024-05-10 18:14 | XMS_ITS | Encounter Summary ---
Author Organization [facility] - [facility] Address [address] [place] [address]. [place] [address] [place] [address] Care Team Providers Care Photographic Plate Maker Name Role Phone Unavailable Primary Care Provider Unavailabl e Encounter Details Date Type Department Care Team (Late st Contact Info) Description 09/25/2016 Orders Only ANY CONVERSION ONE [place], [place] [id number] , Generic Conversion, Social History Tobacco Use [...] GLUCOSE - MCCORMICK DOCKED DEVICE Routine 09/25/2016 7:20 PM CDT documented in this encounter Results * (ABNORMAL) POCT glucose (09/25/2016 7:20 PM CDT) GLUCOSE POC 167(H) 70 - 109 09/25/2016 6:22 PM CDT [facility] ORDERS INTERFACE WHOLE BLOOD SPECIMEN / Unknown 09/25/2016 7:20 PM CDT 09/25/2016 6:22 PM CDT us Generic Conversion Md [facility] POCT ORDERABLES - DEVIC E Final Result [facility] ORDERS INTERFACE US documented in this encounter Visit Diagnoses Not on filedocumented in this encounter
--- OUTSIDE RECORDS SUMMARY | 2024-05-10 18:14 | XMS_ITS | Encounter Summary ---
Author Organization [facility] - [facility] Address [address] [place] [address]. [place] [address] [place] [address] Care Team Providers Care Weather Clerk Name Role Phone Unavailable Primary Care Provider Unavailabl e Encounter Details Date Type Department Care Team (Late st Contact Info) Description 09/28/2016 Orders Only ANY [place] [address] , Generic Conversion, Social History Tobacco Use [...] GLUCOSE - MCCORMICK DOCKED DEVICE Routine 09/28/2016 10:45 AM CDT documented in this encounter Results * (ABNORMAL) POCT glucose (09/28/2016 10:45 AM CDT) GLUCOSE POC 165(H) 70 - 109 09/28/2016 9:47 AM CDT [facility] ORDERS INTERFACE WHOLE BLOOD SPECIMEN / Unknown 09/28/2016 10:45 AM CDT 09/28/2016 9:47 AM CDT us Generic Conversion Md PA[facility] POCT ORDERABLES - DEVIC E Final Result [facility] ORDERS INTERFACE US documented in this encounter Visit Diagnoses Not on filedocumented in this encounter
--- OUTSIDE RECORDS SUMMARY | 2024-05-10 18:14 | XMS_ITS | Encounter Summary ---
Author Organization [facility] - [facility] Address [address] [place] [address]. [place] [address] [place] [address] Care Team Providers Care Fabric Inspector Name Role Phone Unavailable Primary Care Provider Unavailabl e Encounter Details Date Type Department Care Team (Late st Contact Info) Description 09/24/2016 Orders [place] [address] , Generic Conversion, Social History Tobacco Use [...] GLUCOSE - MCCORMICK DOCKED DEVICE Routine 09/24/2016 3:07 AM CDT documented in this encounter Results * POCT glucose (09/24/2016 3:07 AM CDT) GLUCOSE POC 83 70 - 109 09/24/2016 2:09 AM CDT [facility] ORDERS INTERFACE WHOLE BLOOD SPECIMEN / Unknown 09/24/2016 3:07 AM CDT 09/24/2016 2:09 AM CDT us Generic Conversion Md [facility] POCT ORDERABLES - DEVIC E Final Result [facility] ORDERS INTERFACE US documented in this encounter Visit Diagnoses Not on filedocumented in this encounter
--- OUTSIDE RECORDS SUMMARY | 2024-05-10 18:14 | XMS_ITS | Encounter Summary ---
Author Organization [facility] - [facility] Address [address] [place] [address]. [place] [address] [place] [address] Care Team Providers Care Gas Stove Servicer Helper Name Role Phone Unavailable Primary Care Provider Unavailabl e Encounter Details Date Type Department Care Team (Late st Contact Info) Description 09/27/2016 Orders Only [place] [address] , Generic Conversion, Social History Tobacco Use [...] GLUCOSE - MCCORMICK DOCKED DEVICE Routine 09/27/2016 12:04 AM CDT documented in this encounter Results * POCT glucose (09/27/2016 12:04 AM CDT) GLUCOSE POC 72 70 - 109 09/27/2016 12:02 AM CDT [facility] ORDERS INTERFACE WHOLE BLOOD SPECIMEN / Unknown 09/27/2016 12:04 AM CDT 09/27/2016 12:02 AM CDT us Generic Conversion Md [facility] POCT ORDERABLES - DEVIC E Final Result [facility] ORDERS INTERFACE US documented in this encounter Visit Diagnoses Not on filedocumented in this encounter
--- OUTSIDE RECORDS SUMMARY | 2024-05-10 18:14 | XMS_ITS | Encounter Summary ---
Author Organization [facility] - [facility] Address [address] [place] [address]. [place] [address] [place] [address] Care Team Providers Care Traffic Court Magistrate Name Role Phone Unavailable Primary Care Provider Unavailabl e Encounter Details Date Type Department Care Team (Late st Contact Info) Description 09/30/2016 Orders Only [place] [address] , Generic Conversion, Social History Tobacco Use [...] GLUCOSE - MCCORMICK DOCKED DEVICE Routine 09/30/2016 2:09 PM CDT documented in this encounter Results * (ABNORMAL) POCT glucose (09/30/2016 2:09 PM CDT) GLUCOSE POC 188(H) 70 - 109 09/30/2016 1:12 PM CDT [facility] ORDERS INTERFACE Comment:RN Notified WHOLE BLOOD SPECIMEN / Unknown 09/30/2016 2:09 PM CDT 09/30/2016 1:12 PM CDT us Generic Conversion Md [facility] POCT ORDERABLES - DEVIC E Final Result [facility] ORDERS INTERFACE US documented in this encounter Visit Diagnoses Not on filedocumented in this encounter
--- OUTSIDE RECORDS SUMMARY | 2024-05-10 18:14 | XMS_ITS | Encounter Summary ---
Author Organization [facility] - [facility] Address [address] [place] [address]. [place] [address] [place] [address] Care Team Providers Care Hedis Manager Name Role Phone Unavailable Primary Care Provider Unavailabl e Encounter Details Date Type Department Care Team (Late st Contact Info) Description 09/23/2016 Orders [place] [address] , Generic Conversion, Social History Tobacco Use [...] GLUCOSE - MCCORMICK DOCKED DEVICE Routine 09/23/2016 3:03 PM CDT documented in this encounter Results * POCT glucose (09/23/2016 3:03 PM CDT) GLUCOSE POC 85 70 - 109 09/23/2016 2:05 PM CDT [facility] ORDERS INTERFACE WHOLE BLOOD SPECIMEN / Unknown 09/23/2016 3:03 PM CDT 09/23/2016 2:05 PM CDT us Generic Conversion Md PASTRANA POCT ORDERABLES - DEVIC E Final Result [facility] ORDERS INTERFACE US documented in this encounter Visit Diagnoses Not on filedocumented in this encounter
--- OUTSIDE RECORDS SUMMARY | 2024-05-10 18:14 | XMS_ITS | Encounter Summary ---
Author Organization [facility] - [facility] Address [address] [place] [address]. [place] [address] [place] [address] Care Team Providers Care Credit Reference Clerk Name Role Phone Unavailable Primary Care Provider Unavailabl e Encounter Details Date Type Department Care Team (Late st Contact Info) Description 09/28/2016 Orders Only ANY CONVERSION ONE [place], [place] [id number] , Generic Conversion, Social History Tobacco Use [...] GLUCOSE - MCCORMICK DOCKED DEVICE Routine 09/28/2016 10:21 PM CDT documented in this encounter Results * (ABNORMAL) POCT glucose (09/28/2016 10:21 PM CDT) GLUCOSE POC 201(H) 70 - 109 09/28/2016 11:29 PM CDT [facility] ORDERS INTERFACE WHOLE BLOOD SPECIMEN / Unknown 09/28/2016 10:21 PM CDT 09/28/2016 11:29 PM CDT us Generic Conversion Md PASTRANA POCT ORDERABLES - DEVIC E Final Result [facility] ORDERS INTERFACE US documented in this encounter Visit Diagnoses Not on filedocumented in this encounter
--- OUTSIDE RECORDS SUMMARY | 2024-05-10 18:14 | XMS_ITS | Encounter Summary ---
Author Organization [facility] - [facility] Address [address] [place] [address]. [place] [address] [place] [address] Care Team Providers Care Sow Farm Technician Name Role Phone Unavailable Primary Care Provider Unavailabl e Encounter Details Date Type Department Care Team (Late st Contact Info) Description 09/26/2016 Orders [place] [address] , Generic Conversion, Social History Tobacco Use [...] GLUCOSE - MCCORMICK DOCKED DEVICE Routine 09/26/2016 10:31 AM CDT documented in this encounter Results * POCT glucose (09/26/2016 10:31 AM CDT) GLUCOSE POC 88 70 - 109 09/26/2016 9:40 AM CDT [facility] ORDERS INTERFACE WHOLE BLOOD SPECIMEN / Unknown 09/26/2016 10:31 AM CDT 09/26/2016 9:40 AM CDT us Generic Conversion Md PA[facility] POCT ORDERABLES - DEVIC E Final Result [facility] LAB ORDERS INTERFACE US documented in this encounter Visit Diagnoses Not on filedocumented in this encounter
--- OUTSIDE RECORDS SUMMARY | 2024-05-10 18:14 | XMS_ITS | Encounter Summary ---
Author Organization [facility] - [facility] Address [address] [place] [address]. [place] [address] [place] [address] Care Team Providers Care Glass Selector Name Role Phone Unavailable Primary Care Provider Unavailabl e Encounter Details Date Type Department Care Team (Late st Contact Info) Description 09/23/2016 Orders Only ANY CONVERSION ONE [place], [place] [id number] , Generic Conversion, Social History Tobacco Use [...] GLUCOSE - MCCORMICK DOCKED DEVICE Routine 09/23/2016 1:58 PM CDT documented in this encounter Results * (ABNORMAL) POCT glucose (09/23/2016 1:58 PM CDT) GLUCOSE POC 62(L) 70 - 109 09/23/2016 1:00 PM CDT [facility] LAB ORDERS INTERFACE Comment:RN Notified WHOLE BLOOD SPECIMEN / Unknown 09/23/2016 1:58 PM CDT 09/23/2016 1:00 PM CDT us Generic Conversion Md PASTRANA POCT ORDERABLES - DEVIC E Final Result [facility] LAB ORDERS INTERFACE US documented in this encounter Visit Diagnoses Not on filedocumented in this encounter
--- OUTSIDE RECORDS SUMMARY | 2024-05-10 18:14 | XMS_ITS | Encounter Summary ---
Author Organization [facility] - [facility] Address [address] [place] [address]. [place] [address] [place] [address] Care Team Providers Care Steam Press Operator Name Role Phone Unavailable Primary Care Provider Unavailabl e Encounter Details Date Type Department Care Team (Late st Contact Info) Description 09/25/2016 Orders [place] [address] , Generic Conversion, Social History Tobacco Use [...] GLUCOSE - MCCORMICK DOCKED DEVICE Routine 09/25/2016 8:34 AM CDT documented in this encounter Results * (ABNORMAL) POCT glucose (09/25/2016 8:34 AM CDT) GLUCOSE POC 126(H) 70 - 109 09/25/2016 7:40 AM CDT [facility] ORDERS INTERFACE Comment:RN Notified WHOLE BLOOD SPECIMEN / Unknown 09/25/2016 8:34 AM CDT 09/25/2016 7:40 AM CDT us Generic Conversion Md PASTRANA POCT ORDERABLES - DEVIC E Final Result [facility] ORDERS INTERFACE US documented in this encounter Visit Diagnoses Not on filedocumented in this encounter
--- OUTSIDE RECORDS SUMMARY | 2024-05-10 18:14 | XMS_ITS | Encounter Summary ---
Author Organization [facility] - [facility] Address [address] [place] [address]. [place] [address] [place] [address] Care Team Providers Care Gifted Program Teacher Name Role Phone Unavailable Primary Care Provider Unavailabl e Encounter Details Date Type Department Care Team (Late st Contact Info) Description 09/27/2016 Orders Only ANY CONVERSION [place], [place] [id number] , Generic Conversion, Social History Tobacco Use [...] GLUCOSE - MCCORMICK DOCKED DEVICE Routine 09/27/2016 11:19 PM CDT documented in this encounter Results * POCT glucose (09/27/2016 11:19 PM CDT) GLUCOSE POC 109 70 - 109 09/27/2016 10:24 PM CDT [facility] LAB ORDERS INTERFACE Comment:RN Notified WHOLE BLOOD SPECIMEN / Unknown 09/27/2016 11:19 PM CDT 09/27/2016 10:24 PM CDT us Generic Conversion Md PASTRANA POCT ORDERABLES - DEVIC E Final Result [facility] LAB ORDERS INTERFACE US documented in this encounter Visit Diagnoses Not on filedocumented in this encounter
--- OUTSIDE RECORDS SUMMARY | 2024-05-10 18:14 | XMS_ITS | Encounter Summary ---
Author Organization [facility] - [facility] Address [address] [place] [address]. [place] [address] [place] [address] Care Team Providers Care Primary Counselor Name Role Phone Unavailable Primary Care Provider Unavailabl e Encounter Details Date Type Department Care Team (Late st Contact Info) Description 09/26/2016 Orders Only [place] [address] , Generic Conversion, Social History Tobacco Use [...] GLUCOSE - MCCORMICK DOCKED DEVICE Routine 09/26/2016 4:32 AM CDT documented in this encounter Results * POCT glucose (09/26/2016 4:32 AM CDT) GLUCOSE POC 85 70 - 109 09/26/2016 4:04 AM CDT [facility] LAB ORDERS INTERFACE WHOLE BLOOD SPECIMEN / Unknown 09/26/2016 4:32 AM CDT 09/26/2016 4:04 AM CDT us Generic Conversion Md PASTRANA POCT ORDERABLES - DEVIC E Final Result [facility] LAB ORDERS INTERFACE US documented in this encounter Visit Diagnoses Not on filedocumented in this encounter
--- OUTSIDE RECORDS SUMMARY | 2024-05-10 18:14 | XMS_ITS | Encounter Summary ---
Author Organization [facility] - [facility] Address [address] [place] [address]. [place] [address] [place] [address] Care Team Providers Care Landfill Grader Name Role Phone Unavailable Primary Care Provider Unavailabl e Encounter Details Date Type Department Care Team (Late st Contact Info) Description 09/27/2016 [place] [address] , Generic Conversion, Social History Tobacco Use [...] GLUCOSE - MCCORMICK DOCKED DEVICE Routine 09/27/2016 5:47 AM CDT documented in this encounter Results * (ABNORMAL) POCT glucose (09/27/2016 5:47 AM CDT) GLUCOSE POC 49(L) 70 - 109 09/27/2016 4:52 AM CDT [facility] LAB ORDERS INTERFACE WHOLE BLOOD SPECIMEN / Unknown 09/27/2016 5:47 AM CDT 09/27/2016 4:52 AM CDT us Generic Conversion Md PASTRANA POCT ORDERABLES - DEVIC E Final Result [facility] LAB ORDERS INTERFACE US documented in this encounter Visit Diagnoses Not on filedocumented in this encounter
--- OUTSIDE RECORDS SUMMARY | 2024-05-10 18:14 | XMS_ITS | Encounter Summary ---
Author Organization [facility] Address [address] [place] [address]. [place] [address] [place] [address] Care Team Providers Care Tag Writer Name Role Phone Unavailable Primary Care Provider Unavailabl e Encounter Details Date Type Department Care Team (Latest Contact Info) Description 09/29/2016 Abstract [facility] Social History Tobacco Use [...]
--- OUTSIDE RECORDS SUMMARY | 2024-05-10 18:14 | XMS_ITS | Encounter Summary ---
Author Organization [facility] - [facility] Address [address] [place] [address]. [place] [address] [place] [address] Care Team Providers Care Pneumatic Deicer Inspector Name Role Phone Unavailable Primary Care Provider Unavailabl e Encounter Details Date Type Department Care Team (Late st Contact Info) Description 09/26/2016 Orders [place] [address] , Generic Conversion, Social History Tobacco Use [...] GLUCOSE - MCCORMICK DOCKED DEVICE Routine 09/26/2016 1:40 AM CDT documented in this encounter Results * POCT glucose (09/26/2016 1:40 AM CDT) GLUCOSE POC 83 70 - 109 09/26/2016 12:41 AM CDT [facility] LAB ORDERS INTERFACE WHOLE BLOOD SPECIMEN / Unknown 09/26/2016 1:40 AM CDT 09/26/2016 12:41 AM CDT us Generic Conversion Md PASTRANA POCT ORDERABLES - DEVIC E Final Result [facility] LAB ORDERS INTERFACE US documented in this encounter Visit Diagnoses Not on filedocumented in this encounter
--- OUTSIDE RECORDS SUMMARY | 2024-05-10 18:14 | XMS_ITS | Encounter Summary ---
Author Organization [facility] - [facility] Address [address] [place] [address]. [place] [address] [place] [address] Care Team Providers Care Corner Brace Block Machine Operator Name Role Phone Unavailable Primary Care Provider Unavailabl e Encounter Details Date Type Department Care Team (Late st Contact Info) Description 09/26/2016 Orders Only ANY CONVERSION ONE [place], [place] [id number] , Generic Conversion, Social History Tobacco Use [...] GLUCOSE - MCCORMICK DOCKED DEVICE Routine 09/26/2016 10:22 PM CDT documented in this encounter Results * (ABNORMAL) POCT glucose (09/26/2016 10:22 PM CDT) GLUCOSE POC 42(L) 70 - 109 09/26/2016 9:25 PM CDT [facility] LAB ORDERS INTERFACE WHOLE BLOOD SPECIMEN / Unknown 09/26/2016 10:22 PM CDT 09/26/2016 9:25 PM CDT us Generic Conversion Md PASTRANA POCT ORDERABLES - DEVIC E Final Result [facility] LAB ORDERS INTERFACE US documented in this encounter Visit Diagnoses Not on filedocumented in this encounter
--- OUTSIDE RECORDS SUMMARY | 2024-05-10 18:14 | XMS_ITS | Encounter Summary ---
Author Organization [facility] - [facility] Address [address] [place] [address]. [place] [address] [place] [address] Care Team Providers Care Quality Control Head Name Role Phone Unavailable Primary Care Provider Unavailabl e Encounter Details Date Type Department Care Team (Late st Contact Info) Description 09/29/2016 Orders Only ANY CONVERSION ONE [place], [place] [id number] , Generic Conversion, Social History Tobacco Use [...] GLUCOSE - MCCORMICK DOCKED DEVICE Routine 09/29/2016 9:23 PM CDT documented in this encounter Results * (ABNORMAL) POCT glucose (09/29/2016 9:23 PM CDT) GLUCOSE POC 170(H) 70 - 109 09/29/2016 8:48 PM CDT [facility] LAB ORDERS INTERFACE WHOLE BLOOD SPECIMEN / Unknown 09/29/2016 9:23 PM CDT 09/29/2016 8:48 PM CDT us Generic Conversion Md PASTRANA POCT ORDERABLES - DEVIC E Final Result [facility] LAB ORDERS INTERFACE US documented in this encounter Visit Diagnoses Not on filedocumented in this encounter
--- OUTSIDE RECORDS SUMMARY | 2024-05-10 18:14 | XMS_ITS | Encounter Summary ---
Author Organization [facility] - [facility] Address [address] [place] [address]. [place] [address] [place] [address] Care Team Providers Care Public Affairs Director Name Role Phone Unavailable Primary Care Provider Unavailabl e Encounter Details Date Type Department Care Team (Late st Contact Info) Description 09/27/2016 Orders Only [place] [address] , Generic Conversion, Social History Tobacco Use [...] GLUCOSE - MCCORMICK DOCKED DEVICE Routine 09/27/2016 1:00 AM CDT documented in this encounter Results * POCT glucose (09/27/2016 1:00 AM CDT) GLUCOSE POC 77 70 - 109 09/27/2016 12:02 AM CDT [facility] LAB ORDERS INTERFACE WHOLE BLOOD SPECIMEN / Unknown 09/27/2016 1:00 AM CDT 09/27/2016 12:02 AM CDT us Generic Conversion Md PASTRANA POCT ORDERABLES - DEVIC E Final Result [facility] LAB ORDERS INTERFACE US documented in this encounter Visit Diagnoses Not on filedocumented in this encounter
--- OUTSIDE RECORDS SUMMARY | 2024-05-10 18:14 | XMS_ITS | Encounter Summary ---
Author Organization [facility] - [facility] Address [address] [place] [address]. [place] [address] [place] [address] Care Team Providers Care Program Director/Morning Show Host Name Role Phone Unavailable Primary Care Provider Unavailabl e Encounter Details Date Type Department Care Team (Late st Contact Info) Description 09/25/2016 Orders Only ANY CONVERSION ONE [place], [place] [id number] , Generic Conversion, Social History Tobacco Use [...] GLUCOSE - MCCORMICK DOCKED DEVICE Routine 09/25/2016 10:48 PM CDT documented in this encounter Results * POCT glucose (09/25/2016 10:48 PM CDT) GLUCOSE POC 72 70 - 109 09/25/2016 9:50 PM CDT [facility] LAB ORDERS INTERFACE WHOLE BLOOD SPECIMEN / Unknown 09/25/2016 10:48 PM CDT 09/25/2016 9:50 PM CDT us Generic Conversion Md PASTRANA POCT ORDERABLES - DEVIC E Final Result [facility] LAB ORDERS INTERFACE US documented in this encounter Visit Diagnoses Not on filedocumented in this encounter
--- OUTSIDE RECORDS SUMMARY | 2024-05-10 18:14 | XMS_ITS | Encounter Summary ---
Author Organization [facility] - [facility] Address [address] [place] [address]. [place] [address] [place] [address] Care Team Providers Care Mounting Machine Operator Name Role Phone Unavailable Primary Care Provider Unavailabl e Encounter Details Date Type Department Care Team (Late st Contact Info) Description 09/27/2016 Orders Only [place] [address] , Generic Conversion, Social History Tobacco Use [...] GLUCOSE - MCCORMICK DOCKED DEVICE Routine 09/27/2016 6:37 AM CDT documented in this encounter Results * (ABNORMAL) POCT glucose (09/27/2016 6:37 AM CDT) GLUCOSE POC 65(L) 70 - 109 09/27/2016 5:39 AM CDT [facility] LAB ORDERS INTERFACE WHOLE BLOOD SPECIMEN / Unknown 09/27/2016 6:37 AM CDT 09/27/2016 5:38 AM CDT us Generic Conversion Md PASTRANA POCT ORDERABLES - DEVIC E Final Result [facility] LAB ORDERS INTERFACE US documented in this encounter Visit Diagnoses Not on filedocumented in this encounter
--- OUTSIDE RECORDS SUMMARY | 2024-05-10 18:14 | XMS_ITS | Encounter Summary ---
Author Organization [facility] - [facility] Address [address] [place] [address]. [place] [address] [place] [address] Care Team Providers Care Commodity Director Name Role Phone Unavailable Primary Care Provider Unavailabl e Encounter Details Date Type Department Care Team (Late st Contact Info) Description 09/27/2016 Orders [place] [address] , Generic Conversion, Social History Tobacco Use [...] GLUCOSE - MCCORMICK DOCKED DEVICE Routine 09/27/2016 6:29 PM CDT documented in this encounter Results * POCT glucose (09/27/2016 6:29 PM CDT) GLUCOSE POC 71 70 - 109 09/27/2016 5:31 PM CDT [facility] LAB ORDERS INTERFACE Comment:RN Notified WHOLE BLOOD SPECIMEN / Unknown 09/27/2016 6:29 PM CDT 09/27/2016 5:31 PM CDT us Generic Conversion Md PASTRANA POCT ORDERABLES - DEVIC E Final Result [facility] LAB ORDERS INTERFACE US documented in this encounter Visit Diagnoses Not on filedocumented in this encounter
--- OUTSIDE RECORDS SUMMARY | 2024-05-10 18:14 | XMS_ITS | Encounter Summary ---
Author Organization [facility] - [facility] Address [address] [place] [address]. [place] [address] [place] [address] Care Team Providers Care Motion Picture Camera Operator Name Role Phone Unavailable Primary Care Provider Unavailabl e Encounter Details Date Type Department Care Team (Late st Contact Info) Description 09/28/2016 Orders Only ANY CONVERSION ONE [place], [place] [id number] , Generic Conversion, Social History Tobacco Use [...] GLUCOSE - MCCORMICK DOCKED DEVICE Routine 09/28/2016 12:31 PM CDT documented in this encounter Results * (ABNORMAL) POCT glucose (09/28/2016 12:31 PM CDT) GLUCOSE POC 184(H) 70 - 109 09/28/2016 11:34 AM CDT [facility] LAB ORDERS INTERFACE WHOLE BLOOD SPECIMEN / Unknown 09/28/2016 12:31 PM CDT 09/28/2016 11:34 AM CDT us Generic Conversion Md PASTRANA POCT ORDERABLES - DEVIC E Final Result [facility] LAB ORDERS INTERFACE US documented in this encounter Visit Diagnoses Not on filedocumented in this encounter
--- OUTSIDE RECORDS SUMMARY | 2024-05-10 18:14 | XMS_ITS | Encounter Summary ---
Author Organization [facility] Address [address] [place] [address]. [place] [address] [place] [address] Care Team Providers Care Wheelchair Van Operator First Responder Name Role Phone Unavailable Primary Care Provider Unavailabl e Encounter Details Date Type Department Care Team (Late st Contact Info) Description 09/26/2016 Orders [place] [address] , Generic Conversion, Social History [...] Associated Diagnosis Comments BASIC METABOLIC PANEL Routine 09/26/2016 10:40 AM CDT documented in this encounter Results * (ABNORMAL) BASIC METABOLIC PANEL (09/26/2016 10:40 AM CDT) SODIUM S/P/B 137 135 - 147 MMOL/L 09/26/2016 10:17 AM CDT [facility] POTASSIUM S/P/B 3.8 3.5 - 5.0 MMOL/L 09/26/2016 10:17 AM CDT [facility] Comment:SLIGHT HEMOLYSIS, RE SULT MAY BE AFFECTED. CHLORIDE S/P/B 109(H) 98 - 107 MMOL/L 09/26/2016 10:17 AM CDT [facility] CO2 20.6(L) 22 - 29 MMOL/L 09/26/2016 10:17 AM CDT [facility] GLUCOSE 82 70 - 109 MG/DL 09/26/2016 10:17 AM T [facility] BUN 2(L) 7 - 19 MG/DL 09/26/2016 10:26 AM CDT [facility] CREATININE S/P/B 0.60 0.60 - 1.10 MG/DL 09/26/2016 10:17 AM T [facility] CALCIUM S/P/B 8.6 8.4 - 10.2 MG/DL 09/26/2016 10:17 AM CDT [facility] EGFR NON-AFR. AMER. 127 >60 ML/MIN/1.7 3 M2 09/26/2016 10:17 AM T [facility] EGFR AFR. AMER. 154 >60 ML/MIN/1.7 3 M2 09/26/2016 10:17 AM CDT [facility] ANION GAP 7.4 MMOL/L 09/26/2016 10:17 AM T [facility] OSMOLALITY (CALC) 269 MOSM/KG 09/26/2016 10:26 AM T [facility] PLASMA SPECIMEN / Unknown 09/26/2016 10:40 AM CDT 09/26/2016 9:41 AM CDT us Generic Conversion Md PASTRANA LABORATORY Final R esult [facility] [address] [place] [address], [id number] documented in this encounter Visit Diagnoses Not on filedocumented in this encounter
--- OUTSIDE RECORDS SUMMARY | 2024-05-10 18:14 | XMS_ITS | Encounter Summary ---
Author Organization [facility] - [facility] Address [address] [place] [address]. [place] [address] [place] [address] Care Team Providers Care Check Out Cashier Name Role Phone Unavailable Primary Care Provider Unavailabl e Encounter Details Date Type Department Care Team (Late st Contact Info) Description 09/24/2016 Orders Only [place] [address] , Generic Conversion, Social History Tobacco Use [...] GLUCOSE - MCCORMICK DOCKED DEVICE Routine 09/24/2016 1:37 AM CDT documented in this encounter Results * POCT glucose (09/24/2016 1:37 AM CDT) GLUCOSE POC 76 70 - 109 09/24/2016 12:38 AM CDT [facility] LAB ORDERS INTERFACE WHOLE BLOOD SPECIMEN / Unknown 09/24/2016 1:37 AM CDT 09/24/2016 12:38 AM CDT us Generic Conversion Md PASTRANA POCT ORDERABLES - DEVIC E Final Result [facility] LAB ORDERS INTERFACE US documented in this encounter Visit Diagnoses Not on filedocumented in this encounter
--- OUTSIDE RECORDS SUMMARY | 2024-05-10 18:14 | XMS_ITS | Encounter Summary ---
Author Organization [facility] - [facility] Address [address] [place] [address]. [place] [address] [place] [address] Care Team Providers Care Nursing Home Admissions Director Name Role Phone Unavailable Primary Care Provider Unavailabl e Encounter Details Date Type Department Care Team (Late st Contact Info) Description 09/26/2016 Orders Only ANY CONVERSION ONE [place], [place] [id number] , Generic Conversion, Social History Tobacco Use [...] GLUCOSE - MCCORMICK DOCKED DEVICE Routine 09/26/2016 2:43 PM CDT documented in this encounter Results * POCT glucose (09/26/2016 2:43 PM CDT) GLUCOSE POC 82 70 - 109 09/26/2016 1:46 PM CDT [facility] LAB ORDERS INTERFACE Comment:RN Notified WHOLE BLOOD SPECIMEN / Unknown 09/26/2016 2:43 PM CDT 09/26/2016 1:46 PM CDT us Generic Conversion Md PASTRANA POCT ORDERABLES - DEVIC E Final Result [facility] LAB ORDERS INTERFACE US documented in this encounter Visit Diagnoses Not on filedocumented in this encounter
--- OUTSIDE RECORDS SUMMARY | 2024-05-10 18:14 | XMS_ITS | Encounter Summary ---
Author Organization [facility] - [facility] Address [address] [place] [address]. [place] [address] [place] [address] Care Team Providers Care Reclamation Kettle Tender Name Role Phone Unavailable Primary Care Provider Unavailabl e Encounter Details Date Type Department Care Team (Late st Contact Info) Description 09/28/2016 Orders [place] [address] , Generic Conversion, Social History Tobacco Use [...] GLUCOSE - MCCORMICK DOCKED DEVICE Routine 09/28/2016 2:03 AM CDT documented in this encounter Results * POCT glucose (09/28/2016 2:03 AM CDT) GLUCOSE POC 106 70 - 109 09/28/2016 1:09 AM CDT [facility] LAB ORDERS INTERFACE Comment:RN Notified WHOLE BLOOD SPECIMEN / Unknown 09/28/2016 2:03 AM CDT 09/28/2016 1:09 AM CDT us Generic Conversion Md PASTRANA POCT ORDERABLES - DEVIC E Final Result [facility] LAB ORDERS INTERFACE US documented in this encounter Visit Diagnoses Not on filedocumented in this encounter
--- OUTSIDE RECORDS SUMMARY | 2024-05-10 18:14 | XMS_ITS | Encounter Summary ---
Author Organization [facility] - [facility] Address [address] [place] [address]. [place] [address] [place] [address] Care Team Providers Care Research Physiologist Name Role Phone Unavailable Primary Care Provider Unavailabl e Encounter Details Date Type Department Care Team (Late st Contact Info) Description 09/27/2016 Orders [place] [address] , Generic Conversion, Social History Tobacco Use [...] GLUCOSE - MCCORMICK DOCKED DEVICE Routine 09/27/2016 8:59 PM CDT documented in this encounter Results * (ABNORMAL) POCT glucose (09/27/2016 8:59 PM CDT) GLUCOSE POC 51(L) 70 - 109 09/27/2016 8:12 PM CDT [facility] LAB ORDERS INTERFACE Comment:RN Notified WHOLE BLOOD SPECIMEN / Unknown 09/27/2016 8:59 PM CDT 09/27/2016 8:12 PM CDT us Generic Conversion Md PASTRANA POCT ORDERABLES - DEVIC E Final Result [facility] LAB ORDERS INTERFACE US documented in this encounter Visit Diagnoses Not on filedocumented in this encounter
--- OUTSIDE RECORDS SUMMARY | 2024-05-10 18:14 | XMS_ITS | Encounter Summary ---
Author Organization [facility] - [facility] Address [address] [place] [address]. [place] [address] [place] [address] Care Team Providers Care Modeling Analyst Name Role Phone Unavailable Primary Care Provider Unavailabl e Encounter Details Date Type Department Care Team (Late st Contact Info) Description 09/25/2016 Orders [place] [address] , Generic Conversion, Social History Tobacco Use [...] GLUCOSE - MCCORMICK DOCKED DEVICE Routine 09/25/2016 5:05 AM CDT documented in this encounter Results * (ABNORMAL) POCT glucose (09/25/2016 5:05 AM CDT) GLUCOSE POC 198(H) 70 - 109 09/25/2016 4:10 AM CDT [facility] LAB ORDERS INTERFACE WHOLE BLOOD SPECIMEN / Unknown 09/25/2016 5:05 AM CDT 09/25/2016 4:10 AM CDT us Generic Conversion Md PASTRANA POCT ORDERABLES - DEVIC E Final Result [facility] LAB ORDERS INTERFACE US documented in this encounter Visit Diagnoses Not on filedocumented in this encounter
--- OUTSIDE RECORDS SUMMARY | 2024-05-10 18:14 | XMS_ITS | Encounter Summary ---
Author Organization [facility] - [facility] Address [address] [place] [address]. [place] [address] [place] [address] Care Team Providers Care Records Management Director Name Role Phone Unavailable Primary Care Provider Unavailabl e Encounter Details Date Type Department Care Team (Late st Contact Info) Description 09/27/2016 Orders Only ANY CONVERSION ONE [place], [place] [id number] , Generic Conversion, Social History Tobacco Use [...] GLUCOSE - MCCORMICK DOCKED DEVICE Routine 09/27/2016 12:24 PM CDT documented in this encounter Results * POCT glucose (09/27/2016 12:24 PM CDT) GLUCOSE POC 71 70 - 109 09/27/2016 11:25 AM CDT [facility] LAB ORDERS INTERFACE Comment:RN Notified WHOLE BLOOD SPECIMEN / Unknown 09/27/2016 12:24 PM CDT 09/27/2016 11:25 AM CDT us Generic Conversion Md PASTRANA POCT ORDERABLES - DEVIC E Final Result [facility] LAB ORDERS INTERFACE US documented in this encounter Visit Diagnoses Not on filedocumented in this encounter
--- OUTSIDE RECORDS SUMMARY | 2024-05-10 18:14 | XMS_ITS | Encounter Summary ---
Author Organization [facility] - [facility] Address [address] [place] [address]. [place] [address] [place] [address] Care Team Providers Care Seismic Prospecting Observer Name Role Phone Unavailable Primary Care Provider Unavailabl e Encounter Details Date Type Department Care Team (Late st Contact Info) Description 09/26/2016 Orders [place] [address] , Generic Conversion, Social History Tobacco Use [...] GLUCOSE - MCCORMICK DOCKED DEVICE Routine 09/26/2016 11:39 AM CDT documented in this encounter Results * (ABNORMAL) POCT glucose (09/26/2016 11:39 AM CDT) GLUCOSE POC 63(L) 70 - 109 09/26/2016 10:42 AM CDT [facility] LAB ORDERS INTERFACE Comment:RN Notified WHOLE BLOOD SPECIMEN / Unknown 09/26/2016 11:39 AM CDT 09/26/2016 10:42 AM CDT us Generic Conversion Md PASTRANA POCT ORDERABLES - DEVIC E Final Result [facility] LAB ORDERS INTERFACE US documented in this encounter Visit Diagnoses Not on filedocumented in this encounter
--- OUTSIDE RECORDS SUMMARY | 2024-05-10 18:14 | XMS_ITS | Encounter Summary ---
Author Organization [facility] Address [address] [place] [address]. [place] [address] [place] [address] Care Team Providers Care C Software Developer Name Role Phone Unavailable Primary Care Provider Unavailabl e Encounter Details Date Type Department Care Team (Late st Contact Info) Description 09/28/2016 Orders Only ANY CONVERSION ONE [place], [place] [id number] , Generic Conversion, Social History Tobacco Use [...] Procedure Name Priority Date/Time Associated Diagnosis Comments FIBRONECTIN, SEMI-QUANT TIMED 09/28/2016 8:30 PM CDT documented in this encounter Results * FIBRONECTIN, SEMI-QUANT (09/28/2016 8:30 PM CDT) FIBRONECTIN NEGATIVE 09/29/2016 3:00 AM CDT [facility] Comment: CALLED TO MELODIE HERNANDEZ AT 0400. DC BODY FLUID SPECIMEN / Unknown 09/28/2016 8:30 PM CDT 09/29/2016 2:27 AM CDT Generic Conversion Md PASTRANA BODY FLUIDS AND STOOLS ORDERABLES Final Result [facility] [address] [place] [address], [id number] documented in this encounter Visit Diagnoses Not on filedocumented in this encounter
--- OUTSIDE RECORDS SUMMARY | 2024-05-10 18:14 | XMS_ITS | Encounter Summary ---
Author Organization [facility] Address [address] [place] [address]. [place] [address] [place] [address] Care Team Providers Care Kitman Name Role Phone Unavailable Primary Care Provider Unavailabl e Encounter Details Date Type Department Care Team (Late st Contact Info) Description 09/26/2016 Orders [place] [address] , Generic Conversion, Social History Tobacco Use [...] GLUCOSE - MCCORMICK DOCKED DEVICE Routine 09/26/2016 7:32 AM CDT documented in this encounter Results * POCT glucose (09/26/2016 7:32 AM CDT) GLUCOSE POC 85 70 - 109 09/26/2016 6:35 AM CDT [facility] ORDERS INTERFACE Comment:RN Notified WHOLE BLOOD SPECIMEN / Unknown 09/26/2016 7:32 AM CDT 09/26/2016 6:35 AM CDT us Generic Conversion Md PASTRANA POCT ORDERABLES - DEVIC E Final Result [facility] ORDERS INTERFACE US documented in this encounter Visit Diagnoses Not on filedocumented in this encounter
--- OUTSIDE RECORDS SUMMARY | 2024-05-10 18:14 | XMS_ITS | Encounter Summary ---
Author Organization [facility] Address [address] [place] [address]. [place] [address] [place] [address] Care Team Providers Care Instrument Lens Inspector Name Role Phone Unavailable Primary Care Provider Unavailabl e Encounter Details Date Type Department Care Team (Late st Contact Info) Description 09/24/2016 Orders Only ANY CONVERSION ONE [place], [place] [id number] , Generic Conversion, Social History Tobacco Use [...] GLUCOSE - MCCORMICK DOCKED DEVICE Routine 09/24/2016 2:33 PM CDT documented in this encounter Results * (ABNORMAL) POCT glucose (09/24/2016 2:33 PM CDT) GLUCOSE POC 65(L) 70 - 109 09/24/2016 2:02 PM CDT [facility] ORDERS INTERFACE Comment:RN Notified WHOLE BLOOD SPECIMEN / Unknown 09/24/2016 2:33 PM CDT 09/24/2016 2:02 PM CDT us Generic Conversion Md PASTRANA POCT ORDERABLES - DEVIC E Final Result [facility] ORDERS INTERFACE US documented in this encounter Visit Diagnoses Not on filedocumented in this encounter
--- OUTSIDE RECORDS SUMMARY | 2024-05-10 18:14 | XMS_ITS | Encounter Summary ---
Author Organization [facility] Address [address] [place] [address]. [place] [address] [place] [address] Care Team Providers Care Wood Barker Name Role Phone Unavailable Primary Care Provider Unavailabl e Encounter Details Date Type Department Care Team (Late st Contact Info) Description 09/25/2016 Orders [place] [address] , Generic Conversion, Social History [...] Associated Diagnosis Comments BASIC METABOLIC PANEL Routine 09/25/2016 5:05 AM CDT documented in this encounter Results * (ABNORMAL) BASIC METABOLIC PANEL (09/25/2016 5:05 AM CDT) SODIUM S/P/B 134(L) 135 - 147 MMOL/L 09/25/2016 4:[address] [facility] POTASSIUM S/P/B 4.3 3.5 - 5.0 MMOL/L 09/25/2016 4:[address] [facility] Comment:SLIGHT HEMOLYSIS, RE SULT MAY BE AFFECTED. CHLORIDE S/P/B 107 98 - 107 MMOL/L 09/25/2016 4:[address] [facility] CO2 18.8(L) 22 - 29 MMOL/L 09/25/2016 4:[address] [facility] GLUCOSE 178(H) 70 - 109 MG/DL 09/25/2016 4:[address] [facility] BUN <2(L) 7 - 19 MG/DL 09/25/2016 5:[address] [facility] CREATININE S/P/B 0.60 0.60 - 1.10 MG/DL 09/25/2016 4:[address] [facility] CALCIUM S/P/B 8.4 8.4 - 10.2 MG/DL 09/25/2016 4:[address] [facility] EGFR NON-AFR. AMER. 127 >60 ML/MIN/1.7 3 M2 09/25/2016 4:[address] [facility] EGFR AFR. AMER. 154 >60 ML/MIN/1.7 3 M2 09/25/2016 4:[address] [facility] ANION GAP 8.2 MMOL/L 09/25/2016 4:[address] [facility] PLASMA SPECIMEN / Unknown 09/25/2016 5:05 AM CDT 09/25/2016 4:12 AM CDT us Generic Conversion Md [facility] LAB[facility]AT[facility] Final R esult [facility] [address] [place] [address], [id number] documented in this encounter Visit Diagnoses Not on filedocumented in this encounter
--- OUTSIDE RECORDS SUMMARY | 2024-05-10 18:14 | XMS_ITS | Encounter Summary ---
Author Organization [facility] Address [address] [place] [address]. [place] [address] [place] [address] Care Team Providers Care Nutrition Teacher Name Role Phone Unavailable Primary Care Provider Unavailabl e Encounter Details Date Type Department Care Team (Late st Contact Info) Description 09/29/2016 Orders Only ANY CONVERSION ONE [place], [place] [id number] , Generic Conversion, Social History Tobacco Use [...] GLUCOSE - MCCORMICK DOCKED DEVICE Routine 09/29/2016 2:59 PM CDT documented in this encounter Results * (ABNORMAL) POCT glucose (09/29/2016 2:59 PM CDT) GLUCOSE POC 130(H) 70 - 109 09/29/2016 2:00 PM CDT [facility] ORDERS INTERFACE WHOLE BLOOD SPECIMEN / Unknown 09/29/2016 2:59 PM CDT 09/29/2016 2:00 PM CDT us Generic Conversion Md PASTRANA POCT ORDERABLES - DEVIC E Final Result [facility] ORDERS INTERFACE US documented in this encounter Visit Diagnoses Not on filedocumented in this encounter
--- OUTSIDE RECORDS SUMMARY | 2024-05-10 18:14 | XMS_ITS | Encounter Summary ---
Author Organization [facility] Address [address] [place] [address]. [place] [address] [place] [address] Care Team Providers Care Digester Cook Name Role Phone Unavailable Primary Care Provider Unavailabl e Encounter Details Date Type Department Care Team (Late st Contact Info) Description 09/27/2016 Orders [place] [address] , Generic Conversion, Social History Tobacco Use [...] GLUCOSE - MCCORMICK DOCKED DEVICE Routine 09/27/2016 3:36 PM CDT documented in this encounter Results * (ABNORMAL) POCT glucose (09/27/2016 3:36 PM CDT) GLUCOSE POC 60(L) 70 - 109 09/27/2016 2:37 PM CDT [facility] INTERFACE Comment:RN Notified WHOLE BLOOD SPECIMEN / Unknown 09/27/2016 3:36 PM CDT 09/27/2016 2:37 PM CDT us Generic Conversion Md PASTRANA POCT ORDERABLES - DEVIC E Final Result [facility] ORD[facility] INTERFACE US documented in this encounter Visit Diagnoses Not on filedocumented in this encounter
--- OUTSIDE RECORDS SUMMARY | 2024-05-10 18:14 | XMS_ITS | Encounter Summary ---
Author Organization [facility] Address [address] [place] [address]. [place] [address] [place] [address] Care Team Providers Care Scientific Informatics Leader Name Role Phone Unavailable Primary Care Provider Unavailabl e Encounter Details Date Type Department Care Team (Late st Contact Info) Description 09/23/2016 Orders Only ANY CONVERSION ONE [place], [place] [id number] , Generic Conversion, Social History Tobacco Use [...] GLUCOSE - MCCORMICK DOCKED DEVICE Routine 09/23/2016 5:05 PM CDT documented in this encounter Results * POCT glucose (09/23/2016 5:05 PM CDT) GLUCOSE POC 92 70 - 109 09/23/2016 4:15 PM CDT [facility] ORDERS INTERFACE WHOLE BLOOD SPECIMEN / Unknown 09/23/2016 5:05 PM CDT 09/23/2016 4:15 PM CDT us Generic Conversion Md PASTRANA POCT ORDERABLES - DEVIC E Final Result [facility] ORDERS INTERFACE US documented in this encounter Visit Diagnoses Not on filedocumented in this encounter
--- OUTSIDE RECORDS SUMMARY | 2024-05-10 18:14 | XMS_ITS | Encounter Summary ---
Author Organization [facility] Address [address] [place] [address]. [place] [address] [place] [address] Care Team Providers Care Internet Systems Administrator Name Role Phone Unavailable Primary Care Provider Unavailabl e Encounter Details Date Type Department Care Team (Late st Contact Info) Description 09/24/2016 Orders [place] [address] , Generic Conversion, Social History Tobacco Use [...] GLUCOSE - MCCORMICK DOCKED DEVICE Routine 09/24/2016 12:06 PM CDT documented in this encounter Results * POCT glucose (09/24/2016 12:06 PM CDT) GLUCOSE POC 96 70 - 109 09/24/2016 11:10 AM CDT [facility] ORDERS INTERFACE Comment:RN Notified WHOLE BLOOD SPECIMEN / Unknown 09/24/2016 12:06 PM CDT 09/24/2016 11:10 AM CDT us Generic Conversion Md PASTRANA POCT ORDERABLES - DEVIC E Final Result [facility] ORDERS INTERFACE US documented in this encounter Visit Diagnoses Not on filedocumented in this encounter
--- OUTSIDE RECORDS SUMMARY | 2024-05-10 18:14 | XMS_ITS | Encounter Summary ---
Author Organization [facility] Address [address] [place] [address]. [place] [address] [place] [address] Care Team Providers Care Casing In Line Setter Name Role Phone Unavailable Primary Care Provider Unavailabl e Encounter Details Date Type Department Care Team (Late st Contact Info) Description 09/26/2016 Orders [place] [address] , Generic Conversion, Social History Tobacco Use [...] GLUCOSE - MCCORMICK DOCKED DEVICE Routine 09/26/2016 6:44 PM CDT documented in this encounter Results * (ABNORMAL) POCT glucose (09/26/2016 6:44 PM CDT) GLUCOSE POC 65(L) 70 - 109 09/26/2016 5:47 PM CDT [facility] ORDERS INTERFACE Comment:RN Notified WHOLE BLOOD SPECIMEN / Unknown 09/26/2016 6:44 PM CDT 09/26/2016 5:46 PM CDT us Generic Conversion Md PASTRANA POCT ORDERABLES - DEVIC E Final Result [facility] LAB ORDERS INTERFACE US documented in this encounter Visit Diagnoses Not on filedocumented in this encounter
--- OUTSIDE RECORDS SUMMARY | 2024-05-10 18:14 | XMS_ITS | Encounter Summary ---
Author Organization [facility] Address [address] [place] [address]. [place] [address] [place] [address] Care Team Providers Care Sander And Polisher Name Role Phone Unavailable Primary Care Provider Unavailabl e Encounter Details Date Type Department Care Team (Late st Contact Info) Description 09/24/2016 Orders Only ANY CONVERSION ONE [place] [place], [place] [id number] , Generic Conversion, Social History Tobacco Use [...] GLUCOSE - MCCORMICK DOCKED DEVICE Routine 09/24/2016 10:16 AM CDT documented in this encounter Results * POCT glucose (09/24/2016 10:16 AM CDT) GLUCOSE POC 101 70 - 109 09/24/2016 9:25 AM CDT [facility] ORDERS INTERFACE Comment:RN Notified WHOLE BLOOD SPECIMEN / Unknown 09/24/2016 10:16 AM CDT 09/24/2016 9:25 AM CDT us Generic Conversion Md PASTRANA POCT ORDERABLES - DEVIC E Final Result [facility] ORDERS INTERFACE US documented in this encounter Visit Diagnoses Not on filedocumented in this encounter
--- OUTSIDE RECORDS SUMMARY | 2024-05-10 18:14 | XMS_ITS | Encounter Summary ---
Author Organization [facility] Address [address] [place] [address]. [place] [address] [place] [address] Care Team Providers Care Enamel Finisher Name Role Phone Unavailable Primary Care Provider Unavailabl e Encounter Details Date Type Department Care Team (Late st Contact Info) Description 09/23/2016 Orders Only ANY CONVERSION ONE [place], [place] [id number] , Generic Conversion, Social History Tobacco Use [...] GLUCOSE - MCCORMICK DOCKED DEVICE Routine 09/23/2016 7:09 PM CDT documented in this encounter Results * POCT glucose (09/23/2016 7:09 PM CDT) GLUCOSE POC 109 70 - 109 09/23/2016 6:13 PM CDT [facility] ORDERS INTERFACE WHOLE BLOOD SPECIMEN / Unknown 09/23/2016 7:09 PM CDT 09/23/2016 6:12 PM CDT us Generic Conversion Md PASTRANA POCT ORDERABLES - DEVIC E Final Result [facility] ORDERS INTERFACE US documented in this encounter Visit Diagnoses Not on filedocumented in this encounter
--- OUTSIDE RECORDS SUMMARY | 2024-05-10 18:14 | XMS_ITS | Encounter Summary ---
Author Organization [facility] Address [address] [place] [address]. [place] [address] [place] [address] Care Team Providers Care Hand Baseball Sewer Name Role Phone Unavailable Primary Care Provider Unavailabl e Encounter Details Date Type Department Care Team (Late st Contact Info) Description 09/24/2016 Abstract [facility] Outpatient Labor & Delivery [address] [place] [address] Ector Mayfield MD [address] [place] [address] Social History Tobacco Use Types [...]
--- OUTSIDE RECORDS SUMMARY | 2024-05-10 18:14 | XMS_ITS | Encounter Summary ---
Author Organization [facility] Address [address] [place] [address]. [place] [address] [place] [address] Care Team Providers Care Apartment Manager Name Role Phone Unavailable Primary Care Provider Unavailabl e Encounter Details Date Type Department Care Team (Latest Contact Info) Description 09/25/2016 Abstract [facility] Medical Group Social History Tobacco Use [...]
--- OUTSIDE RECORDS SUMMARY | 2024-05-10 18:14 | XMS_ITS | Encounter Summary ---
Author Organization [facility] Address [address] [place] [address]. [place] [address] [place] [address] Care Team Providers Care Environmental Epidemiologist Name Role Phone Unavailable Primary Care Provider Unavailabl e Encounter Details Date Type Department Care Team (Late st Contact Info) Description 09/24/2016 Orders Only ANY CONVERSION ONE [place], [place] [id number] , Generic Conversion, Social History Tobacco Use [...] GLUCOSE - MCCORMICK DOCKED DEVICE Routine 09/24/2016 10:43 PM CDT documented in this encounter Results * POCT glucose (09/24/2016 10:43 PM CDT) GLUCOSE POC 83 70 - 109 09/24/2016 9:47 PM CDT [facility] ORDERS INTERFACE WHOLE BLOOD SPECIMEN / Unknown 09/24/2016 10:43 PM CDT 09/24/2016 9:47 PM CDT us Generic Conversion Md PASTRANA POCT ORDERABLES - DEVIC E Final Result [facility] ORDERS INTERFACE US documented in this encounter Visit Diagnoses Not on filedocumented in this encounter
--- OUTSIDE RECORDS SUMMARY | 2024-05-10 18:14 | XMS_ITS | Encounter Summary ---
Author Organization [facility] Address [address] [place] [address]. [place] [address] [place] [address] Care Team Providers Care Claim Processor Name Role Phone Unavailable Primary Care Provider Unavailabl e Encounter Details Date Type Department Care Team (Late st Contact Info) Description 09/23/2016 Orders [place] [address] , Generic Conversion, Social History [...] Diagnosis Comments BASIC METABOLIC PANEL TIMED 09/23/2016 1:59 PM CDT documented in this encounter Results * (ABNORMAL) BASIC METABOLIC PANEL (09/23/2016 1:59 PM CDT) SODIUM S/P/B 135 135 - 147 MMOL/L 09/23/2016 1:56 PM CDT [facility] POTASSIUM S/P/B 4.7 3.5 - 5.0 MMOL/L 09/23/2016 1:56 PM CDT [facility] Comment:MILD HEMOLYSIS, RESU LT MAY BE AFFECTED. CHLORIDE S/P/B 113(H) 98 - 107 MMOL/L 09/23/2016 1:56 PM CDT [facility] CO2 17.1(L) 22 - 29 MMOL/L 09/23/2016 1:56 PM CDT [facility] GLUCOSE 70 70 - 109 MG/DL 09/23/2016 1:56 PM CDT [facility] BUN 2(L) 7 - 19 MG/DL 09/23/2016 1:56 PM CDT [facility] CREATININE S/P/B 0.56(L) 0.60 - 1.10 MG/DL 09/23/2016 1:56 PM CDT [facility] CALCIUM S/P/B 9.7 8.4 - 10.2 MG/DL 09/23/2016 1:56 PM CDT [facility] EGFR NON-AFR. AMER. 138 >60 ML/MIN/1.7 3 M2 09/23/2016 1:56 PM CDT [facility] EGFR AFR. AMER. 167 >60 ML/MIN/1.7 3 M2 09/23/2016 1:56 PM CDT [facility] ANION GAP 4.9 MMOL/L 09/23/2016 1:56 PM CDT [facility] OSMOLALITY (CALC) 265 MOSM/KG 09/23/2016 1:56 PM CDT [facility] PLASMA SPECIMEN / Unknown 09/23/2016 1:59 PM CDT 09/23/2016 1:04 PM CDT us Generic Conversion Md [facility] LABORATORY Final R esult [facility] [address] [place] [address], [id number] documented in this encounter Visit Diagnoses Not on filedocumented in this encounter
--- OUTSIDE RECORDS SUMMARY | 2024-05-10 18:14 | XMS_ITS | Encounter Summary ---
Author Organization [facility] Address [address] [place] [address]. [place] [address] [place] [address] Care Team Providers Care Loan Analyst Name Role Phone Unavailable Primary Care Provider Unavailabl e Encounter Details Date Type Department Care Team (Late st Contact Info) Description 09/23/2016 Orders Only ANY CONVERSION ONE [place], [place] [id number] , Generic Conversion, Social History Tobacco Use [...] Date/Time Associated Diagnosis Comments BETA-HYDROXYBUTYRAT E TIMED 09/23/2016 2:04 PM CDT documented in this encounter Results * BETA-HYDROXYBUTYRATE (09/23/2016 2:04 PM CDT) BETA-HYDROXYBUT YRATE 0.1 0.0 - 0.3 MMOL/L 09/23/2016 1:16 PM CDT [facility] SERUM OR PLASMA SPECIMEN / Unknown 09/23/2016 2:04 PM CDT 09/23/2016 1:05 PM CDT us Generic Conversion Md [facility] LABORAT[facility] Final R esult [facility] [address] [place] [address], [id number] documented in this encounter Visit Diagnoses Not on filedocumented in this encounter
--- OUTSIDE RECORDS SUMMARY | 2024-05-10 18:14 | XMS_ITS | Encounter Summary ---
Author Organization [facility] Address [address] [place] [address]. [place] [address] [place] [address] Care Team Providers Care Net Technical Architect Name Role Phone Unavailable Primary Care Provider Unavailabl e Encounter Details Date Type Department Care Team (Late st Contact Info) Description 09/30/2016 Orders [place] [address] , Generic Conversion, Social History [...] Diagnosis Comments BASIC METABOLIC PANEL STAT 09/30/2016 2:28 PM CDT documented in this encounter Results * (ABNORMAL) BASIC METABOLIC PANEL (09/30/2016 2:28 PM CDT) SODIUM S/P/B 130(L) 135 - 147 MMOL/L 09/30/2016 2:12 PM CDT [facility] POTASSIUM S/P/B 4.3 3.5 - 5.0 MMOL/L 09/30/2016 2:12 PM CDT [facility] CHLORIDE S/P/B 101 98 - 107 MMOL/L 09/30/2016 2:12 PM CDT [facility] CO2 10.2(L) 22 - 29 MMOL/L 09/30/2016 2:12 PM CDT [facility] GLUCOSE 184(H) 70 - 109 MG/DL 09/30/2016 2:12 PM CDT [facility] BUN 5(L) 7 - 19 MG/DL 09/30/2016 2:12 PM CDT [facility] CREATININE S/P/B 0.73 0.60 - 1.10 MG/DL 09/30/2016 2:12 PM CDT [facility] CALCIUM S/P/B 10.1 8.4 - 10.2 MG/DL 09/30/2016 2:12 PM CDT [facility] EGFR NON-AFR. AMER. 102 >60 ML/MIN/1.7 3 M2 09/30/2016 2:12 PM CDT [facility] EGFR AFR. AMER. 123 >60 ML/MIN/1.7 3 M2 09/30/2016 2:12 PM CDT [facility] ANION GAP 18.8 MMOL/L 09/30/2016 2:12 PM CDT [facility] OSMOLALITY (CALC) 263 MOSM/KG 09/30/2016 2:12 PM CDT [facility] PLASMA SPECIMEN / Unknown 09/30/2016 2:28 PM CDT 09/30/2016 1:33 PM CDT us Generic Conversion Md [facility] LABORAT[facility] Final R esult [facility] [address] [place] [address], [id number] documented in this encounter Visit Diagnoses Not on filedocumented in this encounter
--- OUTSIDE RECORDS SUMMARY | 2024-05-10 18:14 | XMS_ITS | Encounter Summary ---
Author Organization [facility] Address [address] [place] [address]. [place] [address] [place] [address] Care Team Providers Care Dog Handler Or Trainer Name Role Phone Unavailable Primary Care Provider Unavailabl e Encounter Details Date Type Department Care Team (Late st Contact Info) Description 09/24/2016 Orders Only [place] [address] , Generic Conversion, Social History [...] Diagnosis Comments BASIC METABOLIC PANEL TIMED 09/24/2016 10:04 AM CDT documented in this encounter Results * (ABNORMAL) BASIC METABOLIC PANEL (09/24/2016 10:04 AM CDT) SODIUM S/P/B 135 135 - 147 MMOL/L 09/24/2016 9:29 AM CDT [facility] POTASSIUM S/P/B 4.2 3.5 - 5.0 MMOL/L 09/24/2016 9:29 AM CDT [facility] CHLORIDE S/P/B 110(H) 98 - 107 MMOL/L 09/24/2016 9:29 AM CDT [facility] CO2 19.3(L) 22 - 29 MMOL/L 09/24/2016 9:29 AM CDT [facility] GLUCOSE 104 70 - 109 MG/DL 09/24/2016 9:29 AM T [facility] BUN <2(L) 7 - 19 MG/DL 09/24/2016 9:34 AM CDT [facility] CREATININE S/P/B 0.54(L) 0.60 - 1.10 MG/DL 09/24/2016 9:29 AM CDT [facility] CALCIUM S/P/B 8.8 8.4 - 10.2 MG/DL 09/24/2016 9:29 AM CDT [facility] EGFR NON-AFR. AMER. 144 >60 ML/MIN/1. 73 M2 09/24/2016 9:29 AM CDT [facility] EGFR AFR. AMER. 174 >60 ML/MIN/1. 73 M2 09/24/2016 9:29 AM CDT [facility] ANION GAP 5.7 MMOL/L 09/24/2016 9:29 AM T [facility] OSMOLALITY (CALC) UNABLE TO CALCULATE MOSM/KG 09/24/2016 12:39 PM T [facility] PLASMA SPECIMEN / Unknown 09/24/2016 10:04 AM CDT 09/24/2016 9:05 AM CDT us Generic Conversion Md [facility] Final R esult [facility] [address] [place] [address], [id number] documented in this encounter Visit Diagnoses Not on filedocumented in this encounter
--- OUTSIDE RECORDS SUMMARY | 2024-05-10 18:15 | XMS_ITS | Encounter Summary ---
Author Organization [facility] Address [address] [place] [address]. [place] [address] [place] [address] Care Team Providers Care Data Management Specialist Name Role Phone Unavailable Primary Care Provider Unavailabl e Encounter Details Date Type Department Care Team (Latest Contact Info) Description 08/25/2016 Abstract [facility] Social History Tobacco Use [...]
--- OUTSIDE RECORDS SUMMARY | 2024-05-10 18:15 | XMS_ITS | Encounter Summary ---
Author Organization [facility] Address [address] [place] [address]. [place] [address] [place] [address] Care Team Providers Care Professor Of French Name Role Phone Unavailable Primary Care Provider Unavailabl e Encounter Details Date Type Department Care Team (Late st Contact Info) Description 09/22/2016 Orders Only [place] [address] , Generic Conversion, Social History [...] Associated Diagnosis Comments URINE BACTERIA CULTURE TIMED 09/22/2016 8:15 AM CDT documented in this encounter Results * CULTURE URINE (09/22/2016 8:15 AM CDT) SPEC DESCRIPTION URINE 09/22/2016 8:21 AM CDT [facility] SPECIAL REQUESTS NO SPECIAL REQUEST 09/22/2016 8:21 AM CDT [facility] CULTURE RESULT FEW CONTAMINANTS 09/01 2:51 AM CDT [facility] URINE SPECIMEN / Unknown 09/22/2016 8:15 AM CDT 09/22/2016 8:28 AM CDT Comment:URINE CLEAN CATCH us Generic Conversion Md PA[facility] MICROBIOLOGY - GENERAL ORDERABLES Final Result Performing Organization Address City/State/[facility] Co de Phone Number [facility] [address] [place] [address], [id number] documented in this encounter Visit Diagnoses Not on filedocumented in this encounter
--- OUTSIDE RECORDS SUMMARY | 2024-05-10 18:15 | XMS_ITS | Encounter Summary ---
Author Organization [facility] Address [address] [place] [address]. [place] [address] [place] [address] Care Team Providers Care Fire Management Technician Name Role Phone Unavailable Primary Care Provider Unavailabl e Encounter Details Date Type Department Care Team (Late st Contact Info) Description 09/22/2016 Orders Only ANY CONVERSION ONE [place], [place] [id number] , Generic Conversion, Social History Tobacco Use [...] Date/Time Associated Diagnosis Comments BETA-HYDROXYBUTYRAT E TIMED 09/22/2016 2:46 PM CDT documented in this encounter Results * BETA-HYDROXYBUTYRATE (09/22/2016 2:46 PM CDT) BETA-HYDROXYBUT YRATE 0.1 0.0 - 0.3 MMOL/L 09/22/2016 2:04 PM CDT [facility] SERUM OR PLASMA SPECIMEN / Unknown 09/22/2016 2:46 PM CDT 09/22/2016 1:47 PM CDT us Generic Conversion Md [facility] Final R esult [facility] [address] [place] [address], [id number] documented in this encounter Visit Diagnoses Not on filedocumented in this encounter
--- OUTSIDE RECORDS SUMMARY | 2024-05-10 18:15 | XMS_ITS | Encounter Summary ---
Author Organization [facility] Address [address] [place] [address]. [place] [address] [place] [address] Care Team Providers Care Bacteriologist Fishery Name Role Phone Unavailable Primary Care Provider Unavailabl e Encounter Details Date Type Department Care Team (Late st Contact Info) Description 09/22/2016 Orders [place] [address] , Generic Conversion, Social History Tobacco Use [...] POCT GLUCOSE - MCCORMICK DOCKED DEVICE Routine 09/22/2016 12:02 PM CDT documented in this encounter Results * (ABNORMAL) POCT glucose (09/22/2016 12:02 PM CDT) GLUCOSE POC 173(H) 70 - 109 09/22/2016 11:07 AM CDT [facility] ORDERS INTERFACE WHOLE BLOOD SPECIMEN / Unknown 09/22/2016 12:02 PM CDT 09/22/2016 11:07 AM CDT us Generic Conversion Md PA[facility] POCT ORDERABLES - DEVIC E Final Result [facility] ORDERS INTERFACE US documented in this encounter Visit Diagnoses Not on filedocumented in this encounter
--- OUTSIDE RECORDS SUMMARY | 2024-05-10 18:15 | XMS_ITS | Encounter Summary ---
Author Organization [facility] Address [address] [place] [address]. [place] [address] [place] [address] Care Team Providers Care Pretzel Twister Name Role Phone Unavailable Primary Care Provider Unavailabl e Encounter Details Date Type Department Care Team (Late st Contact Info) Description 09/23/2016 Orders Only ANY CONVERSION ONE [place], [place] [id number] , Generic Conversion, Social History Tobacco Use [...] Associated Diagnosis Comments BETA-HYDROXYBUTYRAT E TIMED 09/23/2016 8:01 AM CDT documented in this encounter Results * (ABNORMAL) BETA-HYDROXYBUTYRATE (09/23/2016 8:01 AM CDT) BETA-HYDROXYBU TYRATE 2.5(H) 0.0 - 0.3 MMOL/L 09/23/2016 7:39 AM CDT [facility] SERUM OR PLASMA SPECIMEN / Unknown 09/23/2016 8:01 AM CDT 09/23/2016 7:02 AM CDT us Generic Conversion Md [facility] Final R esult [facility] [address] [place] [address], [id number] documented in this encounter Visit Diagnoses Not on filedocumented in this encounter
--- OUTSIDE RECORDS SUMMARY | 2024-05-10 18:15 | XMS_ITS | Encounter Summary ---
Author Organization [facility] Address [address] [place] [address]. [place] [address] [place] [address] Care Team Providers Care Chief Technologist Name Role Phone Unavailable Primary Care Provider Unavailabl e Encounter Details Date Type Department Care Team (Latest Contact Info) Description 08/27/2016 Abstract [facility] , Generic ConversionMD Social History Tobacco Use Types Packs/Day Years Used Date Smoking Tobacco: Never Assessed Comments Unknown Sex and Gender Information Value Date Recorded Sex Assigned at Not on file Legal Sex Female 11:28 PM CDT Gender Identity Not on file Sexual Orientation Not on file documented as of this encounter Progress Notes * Generic Conversion MD Eddie - 08/25/2016 1:56 PM CDT [place] CLINICAL RESUME Patient Name: KAIRNA FUCHS Patient Location: [address] Date of : 1995 Med Rec #: [id number] Admit/Service Date: 08/19/2016 Disch Date: 08/25/2016 Attending Physician: Ector Mayfield M.D. Date/Time Dictated: 08/25/2016 13:56 p.m. Transcribed Date/Time: 08/27/2016 06:51 a.m. Surgery Date: cc: Mima Crane M.D. Mhd Yahia Zeino, M.D. DISCHARGE DATE:08/25/2016 Chart Document DISCHARGE DATE:08/25/2016 DISCHARGE MEDICATIONS (DICYCLOMINE) DICYCLOMINE (20 MG) (ORAL) (3 TIMES A DAY) (PROTONIX) PANTOPRAZOLE (40 MG) (ORAL) (ONCE DAILY BEFORE BREAKFAST) (RANITIDINE HCL) RANITIDINE TAB (150 MG) (ORAL) (TWICE A DAY) (CARAFATE SUSPENSION) SUCRALFATE SUSPENSION (1 GM) (ORAL) (3 TIMES DAILY BEFORE MEALS) DISCHARGE DISPOSITION Home in stable condition. PRIMARY DISCHARGE DIAGNOSES Diabetic ketoacidosis. SECONDARY DISCHARGE DIAGNOSES: 1.Type 1 diabetes. 2.29 weeks 0 days gestational age. 3.Primigravida. INPATIENT CONSULTS [facility] Endocrinology and Gastroenterology. HOSPITAL COURSE This is a 21-year-old G1, P0, that was admitted at 28 weeks 1 day gestational age for diabetic ketoacidosis. Her diabetes management per Dr. Bryant from the [facility] Endocrinology. She was initially on insulin pump prior to . This was discontinued and her current regimen of insulin prior to admission was Levemir 10 units in the morning as well as 10 units in the evening and then Humalog with 1:7 insulin to carb ratio with meals. While she was here she was in diabetic ketoacidosis that ultimately resolved with treatment. Per [facility], she had multiple days of severe nausea and heartburn. She was started on Protonix IV drip, ranitidine 150 mg p.o. b.i.d. She was scheduled on Reglan as well as Zofran and then gastroenterology saw her and started her on benzo IM. On the date of discharge, the patient had been tolerating p.o. intake with a full diet for the last 24 hours. She had been switched to p.o. Bentyl. Her blood sugars were well controlled. She was not in DKA. Her ultimate discharge regimen for insulin was, by [facility] Endocrinology, 8 units of Levemir in the morning as well as in the evening and insulin to carb ratio of 1:9 with an average carbohydrate requirement for coverage of 6, 7 and 7 units of Humalog with breakfast, lunch and dinner, respectively. DISCHARGE PLAN The patient is to follow up with her primary [employer] for her routine care. She is to follow up with [facility]aternal- Medicine on August 27, [address] Gilliland for echocardiogram. She is to follow up with Dr. Bryant with an appointment that has not yet been made. Dr. Bryant will call the patient with his appointment. She is to take her medicines as prescribed. MEDICATIONS AT DISCHARGE Include. 1.Dicyclomine 20 mg p.o. t.i.d. 2.Pantoprazole 40 mg p.o. daily. 3.Ranitidine 150 mg p.o. b.i.d. 4.Sucralfate 1 g p.o. t.i.d. 5.Levemir 8 units in the morning, 8 units in the p.m. and then Humalog 6 units with breakfast, 7 units with lunch and 7 units with dinner. DISCHARGE TIME SPENT I spent 40 minutes coordinating the discharge of this patient. Electronically Signed By: Lorenzo Melendez M.D. 08/31/2016 02:55 P Lorenzo Melendez M.D. Dictated by: Parminder Roberts D.O. documented in this encounter Plan of Treatment Not on file documented as of this encounter Visit Diagnoses Not on filedocumented in this encounter
--- OUTSIDE RECORDS SUMMARY | 2024-05-10 18:15 | XMS_ITS | Encounter Summary ---
Author Organization [facility] Address [address] [place] [address]. [place] [address] [place] [address] Care Team Providers Care Metal Tester Name Role Phone Unavailable Primary Care Provider Unavailabl e Encounter Details Date Type Department Care Team (Late st Contact Info) Description 09/23/2016 Orders Only [place] [address] , Generic Conversion, Social History [...] Diagnosis Comments BASIC METABOLIC PANEL TIMED 09/23/2016 11:50 AM CDT documented in this encounter Results * (ABNORMAL) BASIC METABOLIC PANEL (09/23/2016 11:50 AM CDT) SODIUM S/P/B 133(L) 135 - 147 MMOL/L 09/23/2016 11:55 AM CDT [facility] POTASSIUM S/P/B 3.8 3.5 - 5.0 MMOL/L 09/23/2016 11:55 AM CDT [facility] CHLORIDE S/P/B 111(H) 98 - 107 MMOL/L 09/23/2016 11:55 AM CDT [facility] CO2 16.6(L) 22 - 29 MMOL/L 09/23/2016 11:55 AM CDT [facility] GLUCOSE 128(H) 70 - 109 MG/DL 09/23/2016 11:55 AM CDT [facility] BUN 2(L) 7 - 19 MG/DL 09/23/2016 11:55 AM CDT [facility] CREATININE S/P/B 0.58(L) 0.60 - 1.10 MG/DL 09/23/2016 11:55 AM CDT [facility] CALCIUM S/P/B 9.5 8.4 - 10.2 MG/DL 09/23/2016 11:55 AM CDT [facility] EGFR NON-AFR. AMER. 133 >60 ML/MIN/1.7 3 M2 09/23/2016 11:55 AM CDT [facility] EGFR AFR. AMER. 161 >60 ML/MIN/1.7 3 M2 09/23/2016 11:55 AM CDT [facility] ANION GAP 5.4 MMOL/L 09/23/2016 11:55 AM T [facility] OSMOLALITY (CALC) 264 MOSM/KG 09/23/2016 11:55 AM T [facility] PLASMA SPECIMEN / Unknown 09/23/2016 11:50 AM CDT 09/23/2016 10:51 AM CDT us Generic Conversion Md [facility] Final R esult [facility] [address] [place] [address], [id number] documented in this encounter Visit Diagnoses Not on filedocumented in this encounter
--- OUTSIDE RECORDS SUMMARY | 2024-05-10 18:15 | XMS_ITS | Encounter Summary ---
Author Organization [facility] Address [address] [place] [address]. [place] [address] [place] [address] Care Team Providers Care Rural Electrification Engineer Name Role Phone Unavailable Primary Care Provider Unavailabl e Encounter Details Date Type Department Care Team (Late st Contact Info) Description 09/23/2016 Orders [place] [address] , Generic Conversion, Social History [...] Diagnosis Comments BASIC METABOLIC PANEL TIMED 09/23/2016 4:04 AM CDT documented in this encounter Results * (ABNORMAL) BASIC METABOLIC PANEL (09/23/2016 4:04 AM CDT) SODIUM S/P/B 133(L) 135 - 147 MMOL/L 09/23/2016 3:29 AM CDT [facility] POTASSIUM S/P/B 4.2 3.5 - 5.0 MMOL/L 09/23/2016 3:29 AM CDT [facility] CHLORIDE S/P/B 108(H) 98 - 107 MMOL/L 09/23/2016 3:29 AM CDT [facility] CO2 13.0(L) 22 - 29 MMOL/L 09/23/2016 3:29 AM CDT [facility] GLUCOSE 179(H) 70 - 109 MG/DL 09/23/2016 3:29 AM CDT [facility] BUN 4(L) 7 - 19 MG/DL 09/23/2016 3:29 AM CDT [facility] CREATININE S/P/B 0.60 0.60 - 1.10 MG/DL 09/23/2016 3:29 AM CDT [facility] CALCIUM S/P/B 9.6 8.4 - 10.2 MG/DL 09/23/2016 3:29 AM CDT [facility] EGFR NON-AFR. AMER. 127 >60 ML/MIN/1.7 3 M2 09/23/2016 3:29 AM CDT [facility] EGFR AFR. AMER. 154 >60 ML/MIN/1.7 3 M2 09/23/2016 3:29 AM CDT [facility] ANION GAP 12.0 MMOL/L 09/23/2016 3:29 AM CDT [facility] OSMOLALITY (CALC) 268 MOSM/KG 09/23/2016 3:29 AM T [facility] PLASMA SPECIMEN / Unknown 09/23/2016 4:04 AM CDT 09/23/2016 3:05 AM CDT us Generic Conversion Md [facility] Final R esult [facility] [address] [place] [address], [id number] documented in this encounter Visit Diagnoses Not on filedocumented in this encounter
--- OUTSIDE RECORDS SUMMARY | 2024-05-10 18:15 | XMS_ITS | Encounter Summary ---
Author Organization [facility] Address [address] [place] [address]. [place] [address] [place] [address] Care Team Providers Care Steel Shot Header Operator Name Role Phone Unavailable Primary Care Provider Unavailabl e Encounter Details Date Type Department Care Team (Late st Contact Info) Description 09/22/2016 Orders [place] [address] , Generic Conversion, Social History [...] Associated Diagnosis Comments BASIC METABOLIC PANEL TIMED 09/22/2016 2:46 PM CDT documented in this encounter Results * (ABNORMAL) BASIC METABOLIC PANEL (09/22/2016 2:46 PM CDT) SODIUM S/P/B 134(L) 135 - 147 MMOL/L 09/22/2016 2:10 PM CDT [facility] POTASSIUM S/P/B 3.5 3.5 - 5.0 MMOL/L 09/22/2016 2:10 PM CDT [facility] CHLORIDE S/P/B 114(H) 98 - 107 MMOL/L 09/22/2016 2:10 PM CDT [facility] CO2 12.9(L) 22 - 29 MMOL/L 09/22/2016 2:10 PM CDT [facility] GLUCOSE 227(H) 70 - 109 MG/DL 09/22/2016 2:10 PM CDT [facility] BUN 6(L) 7 - 19 MG/DL 09/22/2016 2:10 PM CDT [facility] CREATININE S/P/B 0.62 0.60 - 1.10 MG/DL 09/22/2016 2:10 PM CDT [facility] CALCIUM S/P/B 8.4 8.4 - 10.2 MG/DL 09/22/2016 2:10 PM CDT [facility] EGFR NON-AFR. AMER. 123 >60 ML/MIN/1.7 3 M2 09/22/2016 2:10 PM CDT [facility] EGFR AFR. AMER. 149 >60 ML/MIN/1.7 3 M2 09/22/2016 2:10 PM CDT [facility] ANION GAP 7.1 MMOL/L 09/22/2016 2:10 PM CDT [facility] OSMOLALITY (CALC) 273 MOSM/KG 09/22/2016 2:10 PM CDT [facility] PLASMA SPECIMEN / Unknown 09/22/2016 2:46 PM CDT 09/22/2016 1:47 PM CDT us Generic Conversion Md [facility] Final R esult [facility] [address] [place] [address], [id number] documented in this encounter Visit Diagnoses Not on filedocumented in this encounter
--- OUTSIDE RECORDS SUMMARY | 2024-05-10 18:15 | XMS_ITS | Encounter Summary ---
Author Organization [facility] Address [address] [place] [address]. [place] [address] [place] [address] Care Team Providers Care Short Order Cook Name Role Phone Unavailable Primary Care Provider Unavailabl e Encounter Details Date Type Department Care Team (Late st Contact Info) Description 09/22/2016 Orders Only ANY CONVERSION ONE [place], [place] [id number] , Generic Conversion, Social History Tobacco Use [...] Date/Time Associated Diagnosis Comments TYPE & SCREEN NOW 09/22/2016 12:26 PM CDT documented in this encounter Results * TYPE & SCREEN (09/22/2016 12:26 PM CDT) ABO/RH O POSITIVE 09/22/2016 12:46 PM CDT [facility] ANTIBODY SCREEN NEGATIVE 12:46 PM CDT [facility] SAMPLE EXPIRATION 09/25/2016 09/22/2016 11:57 AM CDT [facility] 09/22/2016 12:2 6 PM CDT 09/22/2016 11:34 AM CDT us Generic Conversion Md [facility] BLOOD BANK TEST ORDERAB LES Final Result Performing Organization Address City/State/[facility] Co de Phone Number [facility] [address] [place] [address], [phone] documented in this encounter Visit Diagnoses Not on filedocumented in this encounter
--- OUTSIDE RECORDS SUMMARY | 2024-05-10 18:15 | XMS_ITS | Encounter Summary ---
Author Organization [facility] Address [address] [place] [address]. [place] [address] [place] [address] Care Team Providers Care Cattyman Name Role Phone Unavailable Primary Care Provider Unavailabl e Encounter Details Date Type Department Care Team (Late st Contact Info) Description 09/22/2016 Orders [place] [address] , Generic Conversion, Social History Tobacco Use [...] GLUCOSE - MCCORMICK DOCKED DEVICE Routine 09/22/2016 9:06 AM CDT documented in this encounter Results * (ABNORMAL) POCT glucose (09/22/2016 9:06 AM CDT) GLUCOSE POC 151(H) 70 - 109 09/22/2016 8:08 AM CDT [facility] ORDERS INTERFACE Comment: Notified WHOLE BLOOD SPECIMEN / Unknown 09/22/2016 9:06 AM CDT 09/22/2016 8:08 AM CDT us Generic Conversion Md [facility] POCT ORDERABLES - DEVIC E Final Result [facility] ORDERS INTERFACE US documented in this encounter Visit Diagnoses Not on filedocumented in this encounter
--- OUTSIDE RECORDS SUMMARY | 2024-05-10 18:15 | XMS_ITS | Encounter Summary ---
Author Organization [facility] Address [address] [place] [address]. 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
--- OUTSIDE RECORDS SUMMARY | 2024-05-10 18:15 | XMS_ITS | Encounter Summary ---
Author Organization [facility] Address [address] [place] [address]. [place] [address] [place] [address] Care Team Providers Care Cnc Cutting Operator Name Role Phone Unavailable Primary Care Provider Unavailabl e Encounter Details Date Type Department Care Team (Late st Contact Info) Description 08/25/2016 Orders [place] [address] , Generic Conversion, Social History Tobacco Use [...] POCT GLUCOSE - MCCORMICK DOCKED DEVICE Routine 08/25/2016 9:05 AM CDT documented in this encounter Results * POCT glucose (08/25/2016 9:05 AM CDT) GLUCOSE POC 107 70 - 109 08/25/2016 8:07 AM CDT [facility] ORDERS INTERFACE WHOLE BLOOD SPECIMEN / Unknown 08/25/2016 9:05 AM CDT 08/25/2016 8:07 AM CDT us Generic Conversion Md [facility] POCT ORDERABLES - DEVIC E Final Result [facility] ORDERS INTERFACE US documented in this encounter Visit Diagnoses Not on filedocumented in this encounter
--- OUTSIDE RECORDS SUMMARY | 2024-05-10 18:15 | XMS_ITS | Encounter Summary ---
Author Organization [facility] Address [address] [place] [address]. [place] [address] [place] [address] Care Team Providers Care Admitting Clerk Name Role Phone Unavailable Primary Care Provider Unavailabl e Encounter Details Date Type Department Care Team (Late st Contact Info) Description 09/22/2016 Orders [place] [address] , Generic Conversion, Social History [...] Diagnosis Comments BASIC METABOLIC PANEL TIMED 09/22/2016 8:08 PM CDT documented in this encounter Results * (ABNORMAL) BASIC METABOLIC PANEL (09/22/2016 8:08 PM CDT) SODIUM S/P/B 135 135 - 147 MMOL/L 09/22/2016 7:43 PM CDT [facility] POTASSIUM S/P/B 4.2 3.5 - 5.0 MMOL/L 09/22/2016 7:43 PM CDT [facility] CHLORIDE S/P/B 112(H) 98 - 107 MMOL/L 09/22/2016 7:43 PM CDT [facility] CO2 10.1(L) 22 - 29 MMOL/L 09/22/2016 7:43 PM CDT [facility] GLUCOSE 136(H) 70 - 109 MG/DL 09/22/2016 7:43 PM CDT [facility] BUN 4(L) 7 - 19 MG/DL 09/22/2016 7:43 PM CDT [facility] CREATININE S/P/B 0.58(L) 0.60 - 1.10 MG/DL 09/22/2016 7:43 PM CDT [facility] CALCIUM S/P/B 9.1 8.4 - 10.2 MG/DL 09/22/2016 7:43 PM CDT [facility] EGFR NON-AFR. AMER. 133 >60 ML/MIN/1.7 3 M2 09/22/2016 7:43 PM CDT [facility] EGFR AFR. AMER. 161 >60 ML/MIN/1.7 3 M2 09/22/2016 7:43 PM CDT [facility] ANION GAP 12.9 MMOL/L 09/22/2016 7:43 PM CDT [facility] OSMOLALITY (CALC) 269 MOSM/KG 09/22/2016 7:43 PM CDT [facility] PLASMA SPECIMEN / Unknown 09/22/2016 8:08 PM CDT 09/22/2016 7:09 PM CDT us Generic Conversion Md [facility] Final R esult [facility] [address] [place] [address], [id number] documented in this encounter Visit Diagnoses Not on filedocumented in this encounter
--- OUTSIDE RECORDS SUMMARY | 2024-05-10 18:15 | XMS_ITS | Encounter Summary ---
Author Organization [facility] Address [address] [place] [address]. [place] [address] [place] [address] Care Team Providers Care Customer Counter Associate Name Role Phone Unavailable Primary Care Provider Unavailabl e Encounter Details Date Type Department Care Team (Late st Contact Info) Description 09/23/2016 Orders Only ANY CONVERSION ONE [place], [place] [id number] , Generic Conversion, Social History Tobacco Use [...] GLUCOSE - MCCORMICK DOCKED DEVICE Routine 09/23/2016 12:41 PM CDT documented in this encounter Results * POCT glucose (09/23/2016 12:41 PM CDT) GLUCOSE POC 109 70 - 109 09/23/2016 11:43 AM CDT [facility] ORDERS INTERFACE WHOLE BLOOD SPECIMEN / Unknown 09/23/2016 12:41 PM CDT 09/23/2016 11:43 AM CDT us Generic Conversion Md PA[facility] POCT ORDERABLES - DEVIC E Final Result [facility] ORDERS INTERFACE US documented in this encounter Visit Diagnoses Not on filedocumented in this encounter
--- OUTSIDE RECORDS SUMMARY | 2024-05-10 18:15 | XMS_ITS | Encounter Summary ---
Author Organization [facility] Address [address] [place] [address]. [place] [address] [place] [address] Care Team Providers Care Immigration Case Manager Name Role Phone Unavailable Primary Care Provider Unavailabl e Encounter Details Date Type Department Care Team (Late st Contact Info) Description 09/22/2016 Orders Only ANY CONVERSION ONE [place], [place] [id number] , Generic Conversion, Social History Tobacco Use [...] GLUCOSE - MCCORMICK DOCKED DEVICE Routine 09/22/2016 6:31 PM CDT documented in this encounter Results * POCT glucose (09/22/2016 6:31 PM CDT) GLUCOSE POC 99 70 - 109 09/22/2016 5:36 PM CDT [facility] ORDERS INTERFACE WHOLE BLOOD SPECIMEN / Unknown 09/22/2016 6:31 PM CDT 09/22/2016 5:36 PM CDT us Generic Conversion Md PA[facility] POCT ORDERABLES - DEVIC E Final Result [facility] ORDERS INTERFACE US documented in this encounter Visit Diagnoses Not on filedocumented in this encounter
--- OUTSIDE RECORDS SUMMARY | 2024-05-10 18:15 | XMS_ITS | Encounter Summary ---
Author Organization [facility] Address [address] [place] [address]. [place] [address] [place] [address] Care Team Providers Care Photoresist Printer Name Role Phone Unavailable Primary Care Provider Unavailabl e Encounter Details Date Type Department Care Team (Late st Contact Info) Description 09/22/2016 Orders [place] [address] , Generic Conversion, Social History Tobacco Use [...] GLUCOSE - MCCORMICK DOCKED DEVICE Routine 09/22/2016 4:02 PM CDT documented in this encounter Results * (ABNORMAL) POCT glucose (09/22/2016 4:02 PM CDT) GLUCOSE POC 184(H) 70 - 109 09/22/2016 3:09 PM CDT [facility] ORDERS INTERFACE WHOLE BLOOD SPECIMEN / Unknown 09/22/2016 4:02 PM CDT 09/22/2016 3:09 PM CDT us Generic Conversion Md PASTRA[facility] POCT ORDERABLES - DEVIC E Final Result [facility] ORDERS INTERFACE US documented in this encounter Visit Diagnoses Not on filedocumented in this encounter
--- OUTSIDE RECORDS SUMMARY | 2024-05-10 18:15 | XMS_ITS | Encounter Summary ---
Author Organization [facility] Address [address] [place] [address]. [place] [address] [place] [address] Care Team Providers Care Raw Material Planner Name Role Phone Unavailable Primary Care Provider Unavailabl e Encounter Details Date Type Department Care Team (Latest Contact Info) Description 09/01/2016 Abstract [facility] Social History Tobacco Use Types [...]
--- OUTSIDE RECORDS SUMMARY | 2024-05-10 18:15 | XMS_ITS | Encounter Summary ---
Author Organization [facility] Address [address] [place] [address]. [place] [address] [place] [address] Care Team Providers Care Insurance Billing Specialist Name Role Phone Unavailable Primary Care Provider Unavailabl e Encounter Details Date Type Department Care Team (Late st Contact Info) Description 09/23/2016 Orders Only ANY CONVERSION ONE [place], [place] [id number] , Generic Conversion, Social History Tobacco Use [...] GLUCOSE - MCCORMICK DOCKED DEVICE Routine 09/23/2016 6:29 AM CDT documented in this encounter Results * (ABNORMAL) POCT glucose (09/23/2016 6:29 AM CDT) GLUCOSE POC 192(H) 70 - 109 09/23/2016 5:31 AM CDT [facility] ORDERS INTERFACE WHOLE BLOOD SPECIMEN / Unknown 09/23/2016 6:29 AM CDT 09/23/2016 5:31 AM CDT us Generic Conversion Md PASTRANA POCT ORDERABLES - DEVIC E Final Result [facility] ORDERS INTERFACE US documented in this encounter Visit Diagnoses Not on filedocumented in this encounter
--- OUTSIDE RECORDS SUMMARY | 2024-05-10 18:15 | XMS_ITS | Encounter Summary ---
Author Organization [facility] - [facility] Address [address] [place] [address]. [place] [address] [place] [address] Care Team Providers Care Ammunition Assembly I Laborer Name Role Phone Unavailable Primary Care Provider Unavailabl e Encounter Details Date Type Department Care Team (Late st Contact Info) Description 09/22/2016 Orders Only [place] [address] , Generic Conversion, Social History Tobacco Use [...] GLUCOSE - MCCORMICK DOCKED DEVICE Routine 09/22/2016 2:06 PM CDT documented in this encounter Results * (ABNORMAL) POCT glucose (09/22/2016 2:06 PM CDT) GLUCOSE POC 224(H) 70 - 109 09/22/2016 1:09 PM CDT [facility] ORDERS INTERFACE Comment: Notified WHOLE BLOOD SPECIMEN / Unknown 09/22/2016 2:06 PM CDT 09/22/2016 1:09 PM CDT us Generic Conversion Md PASTRANA POCT ORDERABLES - DEVIC E Final Result [facility] ORDERS INTERFACE US documented in this encounter Visit Diagnoses Not on filedocumented in this encounter
--- OUTSIDE RECORDS SUMMARY | 2024-05-10 18:15 | XMS_ITS | Encounter Summary ---
Author Organization [facility] Address [address] [place] [address]. [place] [address] [place] [address] Care Team Providers Care Workforce Manager Name Role Phone Unavailable Primary Care Provider Unavailabl e Encounter Details Date Type Department Care Team (Late st Contact Info) Description 08/25/2016 Orders Only ANY CONVERSION ONE [place], [place] [id number] , Generic Conversion, Social History Tobacco Use [...] Associated Diagnosis Comments TYPE & SCREEN TIMED 08/25/2016 6:47 AM CDT documented in this encounter Results * TYPE & SCREEN (08/25/2016 6:47 AM CDT) ABO/RH O POSITIVE 08/25/2016 8:05 AM CDT [facility] ANTIBODY SCREEN NEGATIVE 7 8:05 AM CDT [facility] SAMPLE EXPIRATION 08/28/2016 08/25/2016 6:59 AM CDT [facility] 08/25/2016 6:47 AM CDT 08/25/2016 6:12 AM CDT us Generic Conversion Md PASTRANA BLOOD BANK TEST ORDERAB LES Final Result [facility] [address] [place] [address], [id number] documented in this encounter Visit Diagnoses Not on filedocumented in this encounter
--- OUTSIDE RECORDS SUMMARY | 2024-05-10 18:15 | XMS_ITS | Encounter Summary ---
Author Organization [facility] Address [address] [place] [address]. [place] [address] [place] [address] Care Team Providers Care Wire Bound Box Machine Operator Name Role Phone Unavailable Primary Care Provider Unavailabl e Encounter Details Date Type Department Care Team (Late st Contact Info) Description 09/22/2016 Orders [place] [address] , Generic Conversion, Social History Tobacco Use [...] GLUCOSE - MCCORMICK DOCKED DEVICE Routine 09/22/2016 7:50 AM CDT documented in this encounter Results * (ABNORMAL) POCT glucose (09/22/2016 7:50 AM CDT) GLUCOSE POC 145(H) 70 - 109 09/22/2016 6:56 AM CDT [facility] ORDERS INTERFACE WHOLE BLOOD SPECIMEN / Unknown 09/22/2016 7:50 AM CDT 09/22/2016 6:56 AM CDT us Generic Conversion Md PASTRANA POCT ORDERABLES - DEVIC E Final Result [facility] ORDERS INTERFACE US documented in this encounter Visit Diagnoses Not on filedocumented in this encounter
--- OUTSIDE RECORDS SUMMARY | 2024-05-10 18:15 | XMS_ITS | Encounter Summary ---
Author Organization [facility] Address [address] [place] [address]. [place] [address] [place] [address] Care Team Providers Care Shot Peening Operator Name Role Phone Unavailable Primary Care Provider Unavailabl e Encounter Details Date Type Department Care Team (Latest Contact Info) Description 08/26/2016 Abstract [facility] Social History Tobacco [...]
--- OUTSIDE RECORDS SUMMARY | 2024-05-10 18:15 | XMS_ITS | Encounter Summary ---
Author Organization [facility] Address [address] [place] [address]. [place] [address] [place] [address] Care Team Providers Care Science Technicians Name Role Phone Unavailable Primary Care Provider Unavailabl e Encounter Details Date Type Department Care Team (Latest Contact Info) Description 09/22/2016 Abstract [facility] [...]
--- OUTSIDE RECORDS SUMMARY | 2024-05-10 18:15 | XMS_ITS | Encounter Summary ---
Author Organization [facility] Address [address] [place] [address]. [place] [address] [place] [address] Care Team Providers Care Fabricator Foam Rubber Name Role Phone Unavailable Primary Care Provider Unavailabl e Encounter Details Date Type Department Care Team (Late st Contact Info) Description 09/22/2016 Orders Only ANY CONVERSION ONE [place], [place] [id number] , Generic Conversion, Social History Tobacco Use [...] Associated Diagnosis Comments BETA-HYDROXYBUTYRAT E TIMED 09/22/2016 8:08 PM CDT documented in this encounter Results * (ABNORMAL) BETA-HYDROXYBUTYRATE (09/22/2016 8:08 PM CDT) BETA-HYDROXYBU TYRATE 2.9(H) 0.0 - 0.3 MMOL/L 09/22/2016 7:20 PM CDT [facility] SERUM OR PLASMA SPECIMEN / Unknown 09/22/2016 8:08 PM CDT 09/22/2016 7:09 PM CDT us Generic Conversion Md PASTRANA LABORATORY Final R esult [facility] [address] [place] [address], [id number] documented in this encounter Visit Diagnoses Not on filedocumented in this encounter
--- OUTSIDE RECORDS SUMMARY | 2024-05-10 18:15 | XMS_ITS | Encounter Summary ---
Author Organization [facility] Address [address] [place] [address]. [place] [address] [place] [address] Care Team Providers Care Grading Machine Operator Name Role Phone Unavailable Primary Care Provider Unavailabl e Encounter Details Date Type Department Care Team (Late st Contact Info) Description 09/22/2016 Orders [place] [address] , Generic Conversion, Social History [...] Name Priority Date/Time Associated Diagnosis Comments URINALYSIS Nurse Collected Priority 09/22/2016 7:45 AM CDT documented in this encounter Results * (ABNORMAL) URINALYSIS (09/22/2016 7:45 AM CDT) COLOR (U) LIGHT YELLOW 09/22/2016 8:11 AM CDT [facility] TRANSPARENCY CLEAR 09/22/2016 8:11 AM CDT [facility] SPECIFIC GRAVITY (U) 1.020 1.002 - 1.035 09/22/2016 8:11 AM CDT [facility] U PH 5.0 5 - 8 09/22/2016 8:11 AM CDT [facility] PROTEIN (U) 30(A) NEGATIVE 09/22/2016 8:11 AM CDT [facility] URINE GLUCOSE >=500(A) NEGATIVE MG/DL 09/22/2016 8:11 AM CDT [facility] KETONES MG/DL (U) 80(A) NEGATIVE 09/22/2016 8:11 AM CDT [facility] BILIRUBIN (U) NEGATIVE NEGATIVE 09/22/2016 8:11 AM CDT [facility] BLOOD (U) NEGATIVE NEGATIVE 09/22/2016 8:11 AM CDT [facility] NITRITES NEGATIVE NEGATIVE 09/22/2016 8:11 AM T [facility] UROBILINOGEN NORMAL 0 - 1 EU/DL 09/22/2016 8:11 AM CDT [facility] LEUKOCYTES (U) NEGATIVE NEGATIVE 09/22/2016 8:11 AM CDT [facility] RBC/HPF NONE /HPF 09/22/2016 8:11 AM T [facility] WBC/HPF 1 /HPF 09/22/2016 8:11 AM CDT [facility] BACTERIA (U) NONE /HPF 09/22/2016 8:11 AM CDT [facility] SQUAMOUS EPITHELIALS 1 09/22/2016 8:11 AM T [facility] URINE SPECIMEN / Unknown 09/22/2016 7:45 AM CDT 09/22/2016 8:03 AM CDT us Generic Conversion Md PASTRANA URINE ORDERABLES Final Result [facility] [address] [place] [address], [id number] documented in this encounter Visit Diagnoses Not on filedocumented in this encounter
--- OUTSIDE RECORDS SUMMARY | 2024-05-10 18:15 | XMS_ITS | Encounter Summary ---
Author Organization [facility] Address [address] [place] [address]. [place] [address] [place] [address] Care Team Providers Care Jig Fitter Name Role Phone Unavailable Primary Care Provider Unavailabl e Encounter Details Date Type Department Care Team (Late st Contact Info) Description 09/22/2016 Orders [place] [address] , Generic Conversion, Social History [...] Comments CBC W/DIFF AUTOMATED Nurse Collected Priority 09/22/2016 8:48 AM CDT documented in this encounter Results * (ABNORMAL) CBC W/DIFF AUTOMATED (09/22/2016 8:48 AM CDT) WBC 18.5(H) 4.0 - 10.8 x10'3/uL 09/22/2016 7:53 AM CDT [facility] RBC 3.96(L) 4.10 - 5.40 x10'6/uL 09/22/2016 7:53 AM CDT [facility] HGB 11.3(L) 12.0 - 16.0 G/DL 09/22/2016 7:53 AM CDT [facility] HCT 33.0(L) 36.0 - 47.0 % 09/22/2016 7:53 AM CDT [facility] MCV 83.3 78.0 - 100.0 FL 09/22/2016 7:53 AM CDT [facility] MCH 28.5 27.0 - 31.0 PG 09/22/2016 7:53 AM CDT [facility] MCHC 34.2 33.0 - 36.0 G/DL 09/22/2016 7:53 AM CDT [facility] RDW 12.4 11.5 - 14.5 % 09/22/2016 7:53 AM CDT [facility] PLT 339 150 - 350 x10'3/uL 09/22/2016 7:53 AM CDT [facility] MPV 10.0 7.4 - 10.4 FL 09/22/2016 7:53 AM CDT [facility] ABS. NEUTROPHILS TOTAL 15.55(H) 1.60 - 8.30 x10'3/uL 09/22/2016 7:53 AM CDT [facility] ABS. LYMPHOCYTES 1.60 0.80 - 4.70 x10'3/uL 09/22/2016 7:53 AM CDT [facility] ABS. MONOCYTES 1.10 0.00 - 1.50 x10'3/uL 09/22/2016 7:53 AM CDT [facility] ABS. EOSINOPHILS 0.00 0.00 - 0.40 x10'3/uL 09/22/2016 7:53 AM CDT [facility] ABS. BASOPHILS 0.02 0.00 - 0.20 x10'3/uL 09/22/2016 7:53 AM CDT [facility] ABS. IMMATURE GRANULOCYTES 0.26(H) 0.00 - 0.03 x10'3/uL 09/22/2016 7:53 AM CDT [facility] ABS. NUCLEATED RBC'S 0.00 0.0 x10'3/uL 09/22/2016 7:53 AM CDT [facility] PLASMA SPECIMEN / Unknown 09/22/2016 8:48 AM CDT 09/22/2016 7:49 AM CDT us Generic Conversion Md PASTRANA LABORATORY Final R esult [facility] [address] [place] [address], [id number] documented in this encounter Visit Diagnoses Not on filedocumented in this encounter
--- OUTSIDE RECORDS SUMMARY | 2024-05-10 18:15 | XMS_ITS | Encounter Summary ---
Author Organization [facility] Address [address] [place] [address]. [place] [address] [place] [address] Care Team Providers Care Emergency Medical Technician Basic Name Role Phone Unavailable Primary Care Provider Unavailabl e Encounter Details Date Type Department Care Team (Late st Contact Info) Description 09/22/2016 Orders [place] [address] , Generic Conversion, Social History [...] Priority Date/Time Associated Diagnosis Comments BLOOD GAS, [facility] LAB TIMED 09/22/2016 2:46 PM CDT documented in this encounter Results * (ABNORMAL) ARTERIAL BLOOD GAS (09/22/2016 2:46 PM CDT) PH ARTERIAL 7.37 7.35 - 7.45 09/22/2016 2:05 PM CDT [facility] PCO2 26.2(L) 35 - 45 MMHG 09/22/2016 2:05 PM CDT [facility] PO2 134.0(H) 80 - 90 MMHG 09/22/2016 2:05 PM CDT [facility] BICARB ARTERIAL 14.7(L) 22 - 26 MMOL/L 09/22/2016 2:05 PM CDT [facility] TCO2 15.5(L) 23 - 27 MMOL/L 09/22/2016 2:05 PM CDT [facility] BASE DEFICIT 9.0(H) 0 - 2 MMOL/L 09/22/2016 2:05 PM CDT [facility] CARBONIC ACID ARTERIAL 0.8 MMOL/L 09/22/2016 2:05 PM CDT [facility] LITER FLOW ROOM AIR L/M 09/22/2016 2:05 PM CDT [facility] 09/22/2016 2:46 PM CDT 09/22/2016 1:47 PM CDT us Generic Conversion Md PASTRANA LABORATORY Final R esult [facility] [address] [place] [address], [id number] documented in this encounter Visit Diagnoses Not on filedocumented in this encounter
--- OUTSIDE RECORDS SUMMARY | 2024-05-10 18:15 | XMS_ITS | Encounter Summary ---
Author Organization [facility] Address [address] [place] [address]. [place] [address] [place] [address] Care Team Providers Care Schedule Clerk Name Role Phone Unavailable Primary Care Provider Unavailabl e Encounter Details Date Type Department Care Team (Late st Contact Info) Description 09/23/2016 Orders [place] [address] , Generic Conversion, Social History [...] Diagnosis Comments BASIC METABOLIC PANEL TIMED 09/23/2016 12:03 AM CDT documented in this encounter Results * (ABNORMAL) BASIC METABOLIC PANEL (09/23/2016 12:03 AM CDT) SODIUM S/P/B 134(L) 135 - 147 MMOL/L 09/22/2016 11:23 PM CDT [facility] POTASSIUM S/P/B 4.4 3.5 - 5.0 MMOL/L 09/22/2016 11:23 PM CDT [facility] CHLORIDE S/P/B 110(H) 98 - 107 MMOL/L 09/22/2016 11:23 PM CDT [facility] CO2 10.5(L) 22 - 29 MMOL/L 09/22/2016 11:23 PM CDT [facility] GLUCOSE 202(H) 70 - 109 MG/DL 09/22/2016 11:23 PM CDT [facility] BUN 4(L) 7 - 19 MG/DL 09/22/2016 11:23 PM CDT [facility] CREATININE S/P/B 0.57(L) 0.60 - 1.10 MG/DL 09/22/2016 11:23 PM CDT [facility] CALCIUM S/P/B 9.3 8.4 - 10.2 MG/DL 09/22/2016 11:23 PM CDT [facility] EGFR NON-AFR. AMER. 135 >60 ML/MIN/1.7 3 M2 09/22/2016 11:23 PM CDT [facility] EGFR AFR. AMER. 164 >60 ML/MIN/1.7 3 M2 09/22/2016 11:23 PM CDT [facility] ANION GAP 13.5 MMOL/L 09/22/2016 11:23 PM CDT [facility] OSMOLALITY (CALC) 271 MOSM/KG 09/22/2016 11:23 PM CDT [facility] PLASMA SPECIMEN / Unknown 09/23/2016 12:03 AM CDT 09/22/2016 11:04 PM CDT us Generic Conversion Md PA[facility]NA LABORATORY Final R esult [facility] [address] [place] [address], [id number] documented in this encounter Visit Diagnoses Not on filedocumented in this encounter
--- OUTSIDE RECORDS SUMMARY | 2024-05-10 18:15 | XMS_ITS | Encounter Summary ---
Author Organization [facility] Address [address] [place] [address]. [place] [address] [place] [address] Care Team Providers Care Wall Taper Name Role Phone Unavailable Primary Care Provider Unavailabl e Encounter Details Date Type Department Care Team (Late st Contact Info) Description 09/23/2016 Orders [place] [address] , Generic Conversion, Social History Tobacco Use [...] GLUCOSE - MCCORMICK DOCKED DEVICE Routine 09/23/2016 10:40 AM CDT documented in this encounter Results * (ABNORMAL) POCT glucose (09/23/2016 10:40 AM CDT) GLUCOSE POC 185(H) 70 - 109 09/23/2016 9:45 AM CDT [facility] ORDERS INTERFACE WHOLE BLOOD SPECIMEN / Unknown 09/23/2016 10:40 AM CDT 09/23/2016 9:45 AM CDT us Generic Conversion Md PASTRANA POCT ORDERABLES - DEVIC E Final Result [facility] ORDERS INTERFACE US documented in this encounter Visit Diagnoses Not on filedocumented in this encounter
--- OUTSIDE RECORDS SUMMARY | 2024-05-10 18:15 | XMS_ITS | Encounter Summary ---
Author Organization [facility] Address [address] [place] [address]. [place] [address] [place] [address] Care Team Providers Care Commercial Loan Administrator Name Role Phone Unavailable Primary Care Provider Unavailabl e Encounter Details Date Type Department Care Team (Late st Contact Info) Description 09/23/2016 Orders [place] [address] , Generic Conversion, Social History [...] Procedure Name Priority Date/Time Associated Diagnosis Comments CREATININE URINE 24 HR Nurse Collected Priority 09/23/2016 7:39 AM CDT documented in this encounter Results * (ABNORMAL) CREATININE URINE 24 HR (09/23/2016 7:39 AM CDT) CREATININE 24HR (U) 0.8(L) 0.95 - 2.49 GM/24HR 09/23/2016 9:00 AM CDT [facility] 24 HR VOL (MLS) 2,975 ML 7 8:39 AM CDT [facility] 09/23/2016 7:39 AM CDT 09/23/2016 8:18 AM CDT us Generic Conversion Md PASTRANA URINE ORDERABLES Final Result Performing Organization Address City/State/[facility] Co de Phone Number [facility] [address] [place] [address], [id number] documented in this encounter Visit Diagnoses Not on filedocumented in this encounter
--- OUTSIDE RECORDS SUMMARY | 2024-05-10 18:15 | XMS_ITS | Encounter Summary ---
Author Organization [facility] Address [address] [place] [address]. [place] [address] [place] [address] Care Team Providers Care Broom Builder Name Role Phone Unavailable Primary Care Provider Unavailabl e Encounter Details Date Type Department Care Team (Late st Contact Info) Description 09/22/2016 Orders [place] [address] , Generic Conversion, Social History [...] Diagnosis Comments BASIC METABOLIC PANEL TIMED 09/22/2016 12:26 PM CDT documented in this encounter Results * (ABNORMAL) BASIC METABOLIC PANEL (09/22/2016 12:26 PM CDT) SODIUM S/P/B 134(L) 135 - 147 MMOL/L 09/22/2016 12:13 PM CDT [facility] POTASSIUM S/P/B 3.7 3.5 - 5.0 MMOL/L 09/22/2016 12:13 PM CDT [facility] CHLORIDE S/P/B 113(H) 98 - 107 MMOL/L 09/22/2016 12:13 PM CDT [facility] CO2 13.3(L) 22 - 29 MMOL/L 09/22/2016 12:13 PM CDT [facility] GLUCOSE 185(H) 70 - 109 MG/DL 09/22/2016 12:13 PM CDT [facility] BUN 5(L) 7 - 19 MG/DL 09/22/2016 12:13 PM CDT [facility] CREATININE S/P/B 0.63 0.60 - 1.10 MG/DL 09/22/2016 12:13 PM CDT [facility] CALCIUM S/P/B 8.5 8.4 - 10.2 MG/DL 09/22/2016 12:13 PM CDT [facility] EGFR NON-AFR. AMER. 120 >60 ML/MIN/1.7 3 M2 09/22/2016 12:13 PM CDT [facility] EGFR AFR. AMER. 146 >60 ML/MIN/1.7 3 M2 09/22/2016 12:13 PM CDT [facility] ANION GAP 7.7 MMOL/L 09/22/2016 12:13 PM CDT [facility] OSMOLALITY (CALC) 270 MOSM/KG 09/22/2016 12:13 PM CDT [facility] PLASMA SPECIMEN / Unknown 09/22/2016 12:26 PM CDT 09/22/2016 11:34 AM CDT us Generic Conversion Md [facility] LABORAT[facility] Final R esult [facility] [address] [place] [address], [id number] documented in this encounter Visit Diagnoses Not on filedocumented in this encounter
--- OUTSIDE RECORDS SUMMARY | 2024-05-10 18:15 | XMS_ITS | Encounter Summary ---
Author Organization [facility] Address [address] [place] [address]. [place] [address] [place] [address] Care Team Providers Care Sterile Preparation Technician Name Role Phone Unavailable Primary Care Provider Unavailabl e Encounter Details Date Type Department Care Team (Late st Contact Info) Description 09/22/2016 Orders Only ANY CONVERSION ONE [place], [place] [id number] , Generic Conversion, Social History Tobacco Use [...] GLUCOSE - MCCORMICK DOCKED DEVICE Routine 09/22/2016 9:32 PM CDT documented in this encounter Results * (ABNORMAL) POCT glucose (09/22/2016 9:32 PM CDT) GLUCOSE POC 162(H) 70 - 109 09/22/2016 8:42 PM CDT [facility] ORDERS INTERFACE WHOLE BLOOD SPECIMEN / Unknown 09/22/2016 9:32 PM CDT 09/22/2016 8:42 PM CDT us Generic Conversion Md PASTRANA POCT ORDERABLES - DEVIC E Final Result [facility] ORDERS INTERFACE US documented in this encounter Visit Diagnoses Not on filedocumented in this encounter
--- OUTSIDE RECORDS SUMMARY | 2024-05-10 18:15 | XMS_ITS | Encounter Summary ---
Author Organization [facility] Address [address] [place] [address]. [place] [address] [place] [address] Care Team Providers Care Business Instructor Name Role Phone Unavailable Primary Care Provider Unavailabl e Encounter Details Date Type Department Care Team (Late st Contact Info) Description 09/23/2016 Orders Only [place] [address] , Generic Conversion, Social History Tobacco Use [...] GLUCOSE - MCCORMICK DOCKED DEVICE Routine 09/23/2016 3:28 AM CDT documented in this encounter Results * (ABNORMAL) POCT glucose (09/23/2016 3:28 AM CDT) GLUCOSE POC 182(H) 70 - 109 09/23/2016 5:[address] [facility] ORDERS INTERFACE WHOLE BLOOD SPECIMEN / Unknown 09/23/2016 3:28 AM CDT 09/23/2016 5:40 AM CDT us Generic Conversion Md PASTRANA POCT ORDERABLES - DEVIC E Final Result [facility] ORDERS INTERFACE US documented in this encounter Visit Diagnoses Not on filedocumented in this encounter
--- OUTSIDE RECORDS SUMMARY | 2024-05-10 18:15 | XMS_ITS | Encounter Summary ---
Author Organization [facility] Address [address] [place] [address]. [place] [address] [place] [address] Care Team Providers Care Fashion Patternmaker Name Role Phone Unavailable Primary Care Provider Unavailabl e Encounter Details Date Type Department Care Team (Late st Contact Info) Description 09/22/2016 Orders Only [place] [address] , Generic Conversion, Social History Tobacco Use [...] GLUCOSE - MCCORMICK DOCKED DEVICE Routine 09/22/2016 9:59 AM CDT documented in this encounter Results * (ABNORMAL) POCT glucose (09/22/2016 9:59 AM CDT) GLUCOSE POC 168(H) 70 - 109 09/22/2016 9:04 AM CDT [facility] ORDERS INTERFACE WHOLE BLOOD SPECIMEN / Unknown 09/22/2016 9:59 AM CDT 09/22/2016 9:04 AM CDT us Generic Conversion Md PASTRANA POCT ORDERABLES - DEVIC E Final Result [facility] ORDERS INTERFACE US documented in this encounter Visit Diagnoses Not on filedocumented in this encounter
--- OUTSIDE RECORDS SUMMARY | 2024-05-10 18:15 | XMS_ITS | Encounter Summary ---
Author Organization [facility] Address [address] [place] [address]. [place] [address] [place] [address] Care Team Providers Care Photo Lab Specialist Name Role Phone Unavailable Primary Care Provider Unavailabl e Encounter Details Date Type Department Care Team (Late st Contact Info) Description 09/22/2016 [place] [address] , Generic Conversion, Social History [...] Date/Time Associated Diagnosis Comments DRUG SCREEN RAPID Nurse Collected Priority 09/22/2016 5:10 PM CDT documented in this encounter Results * DRUG SCREEN RAPID (09/22/2016 5:10 PM CDT) PHENCYCLIDINE PCP (U) NEGATIVE NEGATIVE 09/22/2016 5:50 PM CDT [facility] BENZODIAZEPINES SCREEN (U) NEGATIVE NEGATIVE 09/22/2016 5:50 PM CDT [facility] COCAINE METABOLITES (U) NEGATIVE NEGATIVE 09/22/2016 5:50 PM CDT [facility] AMPHETAMINE (U) NEGATIVE NEGATIVE 7 5:50 PM CDT [facility] CANNABINOIDS SCREEN (U) NEGATIVE NEGATIVE 09/22/2016 5:50 PM CDT [facility] OPIATE SCREEN (U) NEGATIVE NEGATIVE 017 5:50 PM CDT [facility] BARBITURATES SCREEN (U) NEGATIVE NEGATIVE 09/22/2016 5:50 PM CDT [facility] TRICYCLIC ANTIDEPRESSANT SCREEN (U) NEGATIVE NEGATIVE 09/22/2016 5:50 PM CDT [facility] URINE TOX COMMENT Unconfirmed screening results are to be used only for medical purposes. 09/22/2016 5:02 PM CDT [facility] CUTOFF CONCENTRATION (U) Cut-off Concentration for a positive result 09/22/2016 5:02 PM CDT [facility] Comment: Phencyclidine ? 25 ng/mL Benzodiazepines ? 300 ng/mL Cocaine ? 300 ng/mL Amphetamine ? 1000 ng/mL Cannabinoids ?50 ng/mL Opiates ? 300 ng/mL Barbiturates ?300 ng/mL TSA ? 1000 ng/mL URINE SPECIMEN / Unknown 09/22/2016 5:10 PM CDT 09/22/2016 5:28 PM CDT us Generic Conversion Md PASTRANA URINE ORDERABLES Final Result [facility] [address] [place] [address], [phone] documented in this encounter Visit Diagnoses Not on filedocumented in this encounter
--- OUTSIDE RECORDS SUMMARY | 2024-05-10 18:15 | XMS_ITS | Encounter Summary ---
Author Organization [facility] Address [address] [place] [address]. [place] [address] [place] [address] Care Team Providers Care Cement Finishing Supervisor Name Role Phone Unavailable Primary Care Provider Unavailabl e Encounter Details Date Type Department Care Team (Late st Contact Info) Description 09/23/2016 Orders [place] [address] , Generic Conversion, Social History Tobacco Use [...] GLUCOSE - MCCORMICK DOCKED DEVICE Routine 09/23/2016 11:44 AM CDT documented in this encounter Results * (ABNORMAL) POCT glucose (09/23/2016 11:44 AM CDT) GLUCOSE POC 143(H) 70 - 109 09/23/2016 10:47 AM CDT [facility] ORDERS INTERFACE WHOLE BLOOD SPECIMEN / Unknown 09/23/2016 11:44 AM CDT 09/23/2016 10:47 AM CDT us Generic Conversion Md PASTRANA POCT ORDERABLES - DEVIC E Final Result [facility] ORDERS INTERFACE US documented in this encounter Visit Diagnoses Not on filedocumented in this encounter
--- OUTSIDE RECORDS SUMMARY | 2024-05-10 18:15 | XMS_ITS | Encounter Summary ---
Author Organization [facility] Address [address] [place] [address]. [place] [address] [place] [address] Care Team Providers Care Welder Setter Resistance Machine Name Role Phone Unavailable Primary Care Provider Unavailabl e Encounter Details Date Type Department Care Team (Late st Contact Info) Description 09/23/2016 Orders [place] [address] , Generic Conversion, Social History [...] Procedure Name Priority Date/Time Associated Diagnosis Comments PROTEIN TOTAL URINE 24 HR Nurse Collected Priority 09/23/2016 7:39 AM CDT documented in this encounter Results * (ABNORMAL) PROTEIN TOTAL URINE 24 HR (09/23/2016 7:39 AM CDT) TOTAL PROTEIN 24HR (U) 404.6(H) 0 - 300 mg/24hr 09/23/2016 9:[address] [facility] VOLUME (U) 2,975 ML 09/23/2016 8:[address] [facility] 09/23/2016 7:39 AM CDT 09/23/2016 8:18 AM CDT us Generic Conversion Md PASTRANA URINE ORDERABLES Final Result Performing Organization Address City/State/[facility] Co de Phone Number [facility] [address] [place] [address], [phone] documented in this encounter Visit Diagnoses Not on filedocumented in this encounter
--- OUTSIDE RECORDS SUMMARY | 2024-05-10 18:15 | XMS_ITS | Encounter Summary ---
Author Organization [facility] Address [address] [place] [address]. [place] [address] [place] [address] Care Team Providers Care Internet Researcher Name Role Phone Unavailable Primary Care Provider Unavailabl e Encounter Details Date Type Department Care Team (Late st Contact Info) Description 09/23/2016 Orders Only [place] [address] , Generic Conversion, Social History Tobacco Use [...] GLUCOSE - MCCORMICK DOCKED DEVICE Routine 09/23/2016 9:00 AM CDT documented in this encounter Results * (ABNORMAL) POCT glucose (09/23/2016 9:00 AM CDT) GLUCOSE POC 186(H) 70 - 109 09/23/2016 8:06 AM CDT [facility] ORDERS INTERFACE WHOLE BLOOD SPECIMEN / Unknown 09/23/2016 9:00 AM CDT 09/23/2016 8:06 AM CDT us Generic Conversion Md PASTRANA POCT ORDERABLES - DEVIC E Final Result [facility] ORDERS INTERFACE US documented in this encounter Visit Diagnoses Not on filedocumented in this encounter
--- OUTSIDE RECORDS SUMMARY | 2024-05-10 18:15 | XMS_ITS | Encounter Summary ---
Author Organization [facility] Address [address] [place] [address]. [place] [address] [place] [address] Care Team Providers Care Treasury Management Sales Consultant Name Role Phone Unavailable Primary Care Provider Unavailabl e Encounter Details Date Type Department Care Team (Latest Contact Info) Description 08/24/2016 Abstract [facility] , Veena Sepulveda MD Social [...] Procedure Name Priority Date/Time Associated Diagnosis Comments IR PICC PLC GREATER 5YR Routine 08/24/2016 7:26 AM CDT documented in this encounter Results * IR PICC PLC GREATER 5YR (08/24/2016 7:26 AM CDT) Anatomical Region Laterality Modality Chest Interventional R adiology 08/24/2016 7:26 AM CDT 08/24/2016 7:26 AM CDT Narrative 08/24/2016 7:27 AM CDT [facility] ?? [place], [place] ?? Department of Radiology ? KARINA FUCHS ??Ordering MD: ??PRINCESS SANDERS MD, RES ?Acct: ??[id number] ?? : ??1995 ??Pt Type: ??ADM IN ?? Sex: ??F ? Study Date Accesssion # Procedure Code Procedure ?? 08/22/16 [id number] IR Ins PICC over 5 Yrs VAST ? PICC placed with ultrasound guidance by Vascular Access Team. Procedure note will reside in patient' s permanent medical record. ? Dictated On: 08/24/16725 ?? Dictated By: ?? Transcribed On: 08/24/16725 - [facility] ?? Procedure Note Veena Morgan MD - 02/23/2018 [place], [place] Department of Radiology KARINA FUCHS MD: PRINCESS SANDERS MD, RES Acct: [id number] : 1995 Pt Type: ADM IN Sex: F Study Date Accesssion # Procedure Code Procedure 08/22/[id number] IR Ins PICC over 5 Yrs VAST PICC placed with ultrasound guidance by Vascular Access Team. Procedurenote will reside in patient' s permanent medical record. Dictated On: 08/24/16725 Dictated By: Transcribed On: 08/24/16725 - [facility] us Veena Sepulveda Md, MD INTERVENTIONAL RADIOLOG Y Final Result documented in this encounter Visit Diagnoses Not on filedocumented in this encounter
--- OUTSIDE RECORDS SUMMARY | 2024-05-10 18:15 | XMS_ITS | Encounter Summary ---
Author Organization [facility] Address [address] [place] [address]. [place] [address] [place] [address] Care Team Providers Care Resume Writer Name Role Phone Unavailable Primary Care Provider Unavailabl e Encounter Details Date Type Department Care Team (Late st Contact Info) Description 09/22/2016 Orders Only [place] [address] , Generic Conversion, Social History Tobacco Use [...] GLUCOSE - MCCORMICK DOCKED DEVICE Routine 09/22/2016 1:08 PM CDT documented in this encounter Results * (ABNORMAL) POCT glucose (09/22/2016 1:08 PM CDT) GLUCOSE POC 205(H) 70 - 109 09/22/2016 12:13 PM CDT [facility] ORDERS INTERFACE Comment: Notified WHOLE BLOOD SPECIMEN / Unknown 09/22/2016 1:08 PM CDT 09/22/2016 12:12 PM CDT us Generic Conversion Md PASTRANA POCT ORDERABLES - DEVIC E Final Result [facility] ORDERS INTERFACE US documented in this encounter Visit Diagnoses Not on filedocumented in this encounter
--- OUTSIDE RECORDS SUMMARY | 2024-05-10 18:15 | XMS_ITS | Encounter Summary ---
Author Organization [facility] Address [address] [place] [address]. [place] [address] [place] [address] Care Team Providers Care Training Consultant Name Role Phone Unavailable Primary Care Provider Unavailabl e Encounter Details Date Type Department Care Team (Late st Contact Info) Description 09/22/2016 Orders Only ANY CONVERSION ONE [place], [place] [id number] , Generic Conversion, Social History Tobacco Use [...] Associated Diagnosis Comments PHOSPHORUS, INORGANIC PHOSPHATE TIMED 09/22/2016 12:26 PM CDT documented in this encounter Results * (ABNORMAL) PHOSPHORUS, INORGANIC PHOSPHATE (09/22/2016 12:26 PM CDT) PHOSPHORUS 1.9(L) 2.2 - 4.5 MG/DL 09/22/2016 12:30 PM CDT [facility] SERUM OR PLASMA SPECIMEN / Unknown 09/22/2016 12:26 PM CDT 09/22/2016 11:34 AM CDT us Generic Conversion Md PASTRANA LABORATORY Final R esult [facility] [address] [place] [address], [phone] documented in this encounter Visit Diagnoses Not on filedocumented in this encounter
--- OUTSIDE RECORDS SUMMARY | 2024-05-10 18:15 | XMS_ITS | Encounter Summary ---
Author Organization [facility] Address [address] [place] [address]. [place] [address] [place] [address] Care Team Providers Care Fruit Pitter Name Role Phone Unavailable Primary Care Provider Unavailabl e Encounter Details Date Type Department Care Team (Late st Contact Info) Description 09/22/2016 Orders [place] [address] , Generic Conversion, Social History [...] Associated Diagnosis Comments BLOOD GAS, ARTERIAL LAB Nurse Collected Priority 09/22/2016 8:48 AM CDT documented in this encounter Results * (ABNORMAL) ARTERIAL BLOOD GAS (09/22/2016 8:48 AM CDT) PH ARTERIAL 7.30(L) 7.35 - 7.45 09/22/2016 7:57 AM CDT [facility] PCO2 25.7(L) 35 - 45 MMHG 09/22/2016 7:57 AM CDT [facility] PO2 58.5(L) 80 - 90 MMHG 09/22/2016 7:57 AM CDT [facility] BICARB ARTERIAL 12.2(L) 22 - 26 MMOL/L 09/22/2016 7:57 AM CDT [facility] TCO2 13.0(L) 23 - 27 MMOL/L 09/22/2016 7:57 AM CDT [facility] BASE DEFICIT 12.7(H) 0 - 2 MMOL/L 09/22/2016 7:57 AM CDT [facility] CARBONIC ACID ARTERIAL 0.8 MMOL/L 09/22/2016 7:57 AM CDT [facility] LITER FLOW ROOM AIR L/M 09/22/2016 7:57 AM CDT [facility] 09/22/2016 8:48 AM CDT 09/22/2016 7:49 AM CDT us Generic Conversion Md PASTRANA LABORATORY Final R esult [facility] [address] [place] [address], [id number] documented in this encounter Visit Diagnoses Not on filedocumented in this encounter
--- OUTSIDE RECORDS SUMMARY | 2024-05-10 18:15 | XMS_ITS | Encounter Summary ---
Author Organization [facility] Address [address] [place] [address]. [place] [address] [place] [address] Care Team Providers Care Colorist Formulator Name Role Phone Unavailable Primary Care Provider Unavailabl e Encounter Details Date Type Department Care Team (Late st Contact Info) Description 09/22/2016 Orders Only ANY CONVERSION ONE [place], [place] [id number] , Generic Conversion, Social History Tobacco Use [...] Diagnosis Comments THYROID STIM HORMONE TSH TIMED 09/22/2016 12:26 PM CDT documented in this encounter Results * THYROID STIM HORMONE, TSH (09/22/2016 12:26 PM CDT) TSH 2.278 0.35 - 4.94 uIU/ML 09/22/2016 12:51 PM CDT [facility] SERUM OR PLASMA SPECIMEN / Unknown 09/22/2016 12:26 PM CDT 09/22/2016 11:34 AM CDT us Generic Conversion Md PASTRANA LABORATORY Final R esult [facility] [address] [place] [address], [id number] documented in this encounter Visit Diagnoses Not on filedocumented in this encounter
--- OUTSIDE RECORDS SUMMARY | 2024-05-10 18:15 | XMS_ITS | Encounter Summary ---
Author Organization [facility] Address [address] [place] [address]. [place] [address] [place] [address] Care Team Providers Care Certified Wellness Program Coordinator Name Role Phone Unavailable Primary Care Provider Unavailabl e Encounter Details Date Type Department Care Team (Late st Contact Info) Description 09/23/2016 Orders Only ANY CONVERSION ONE [place], [place] [id number] , Generic Conversion, Social History Tobacco Use [...] GLUCOSE - MCCORMICK DOCKED DEVICE Routine 09/23/2016 12:32 AM CDT documented in this encounter Results * (ABNORMAL) POCT glucose (09/23/2016 12:32 AM CDT) GLUCOSE POC 219(H) 70 - 109 09/23/2016 12:23 AM CDT [facility] ORDERS INTERFACE WHOLE BLOOD SPECIMEN / Unknown 09/23/2016 12:32 AM CDT 09/23/2016 12:23 AM CDT us Generic Conversion Md PASTRANA POCT ORDERABLES - DEVIC E Final Result [facility] ORDERS INTERFACE US documented in this encounter Visit Diagnoses Not on filedocumented in this encounter
--- OUTSIDE RECORDS SUMMARY | 2024-05-10 18:15 | XMS_ITS | Encounter Summary ---
Author Organization [facility] Address [address] [place] [address]. [place] [address] [place] [address] Care Team Providers Care Kettle Tender Name Role Phone Unavailable Primary Care Provider Unavailabl e Encounter Details Date Type Department Care Team (Late st Contact Info) Description 09/22/2016 Orders Only ANY CONVERSION ONE [place], [place] [id number] , Generic Conversion, Social History Tobacco Use [...] Associated Diagnosis Comments BETA-HYDROXYBUTYRAT E TIMED 09/22/2016 8:47 AM CDT documented in this encounter Results * (ABNORMAL) BETA-HYDROXYBUTYRATE (09/22/2016 8:47 AM CDT) BETA-HYDROXYBU TYRATE 2.6(H) 0.0 - 0.3 MMOL/L 09/22/2016 7:57 AM CDT [facility] SERUM OR PLASMA SPECIMEN / Unknown 09/22/2016 8:47 AM CDT 09/22/2016 7:48 AM CDT us Generic Conversion Md PASTRANA LABORATORY Final R esult [facility] [address] [place] [address], [id number] documented in this encounter Visit Diagnoses Not on filedocumented in this encounter
--- OUTSIDE RECORDS SUMMARY | 2024-05-10 18:15 | XMS_ITS | Encounter Summary ---
Author Organization [facility] Address [address] [place] [address]. [place] [address] [place] [address] Care Team Providers Care Second Language Tutor Name Role Phone Unavailable Primary Care Provider Unavailabl e Encounter Details Date Type Department Care Team (Late st Contact Info) Description 09/22/2016 Orders Only ANY CONVERSION ONE [place], [place] [id number] , Generic Conversion, Social History Tobacco Use [...] Associated Diagnosis Comments MAGNESIUM Nurse Collected Priority 09/22/2016 8:48 AM CDT documented in this encounter Results * (ABNORMAL) MAGNESIUM (09/22/2016 8:48 AM CDT) MAGNESIUM 1.6(L) 1.7 - 2.2 MG/DL 09/22/2016 8:18 AM CDT [facility] SERUM OR PLASMA SPECIMEN / Unknown 09/22/2016 8:48 AM CDT 09/22/2016 7:49 AM CDT us Generic Conversion Md PASTRANA LABORATORY Final R esult [facility] [address] [place] [address], [id number] documented in this encounter Visit Diagnoses Not on filedocumented in this encounter
--- OUTSIDE RECORDS SUMMARY | 2024-05-10 18:15 | XMS_ITS | Encounter Summary ---
Author Organization [facility] Address [address] [place] [address]. [place] [address] [place] [address] Care Team Providers Care Can Operator Name Role Phone Unavailable Primary Care Provider Unavailabl e Encounter Details Date Type Department Care Team (Late st Contact Info) Description 09/22/2016 Orders [place] [address] , Generic Conversion, Social History Tobacco Use [...] GLUCOSE - MCCORMICK DOCKED DEVICE Routine 09/22/2016 11:02 AM CDT documented in this encounter Results * (ABNORMAL) POCT glucose (09/22/2016 11:02 AM CDT) GLUCOSE POC 172(H) 70 - 109 09/22/2016 10:06 AM CDT [facility] ORDERS INTERFACE WHOLE BLOOD SPECIMEN / Unknown 09/22/2016 11:02 AM CDT 09/22/2016 10:06 AM CDT us Generic Conversion Md PASTRANA POCT ORDERABLES - DEVIC E Final Result [facility] ORDERS INTERFACE US documented in this encounter Visit Diagnoses Not on filedocumented in this encounter
--- OUTSIDE RECORDS SUMMARY | 2024-05-10 18:15 | XMS_ITS | Encounter Summary ---
Author Organization [facility] Address [address] [place] [address]. [place] [address] [place] [address] Care Team Providers Care Regional Education Manager Name Role Phone Unavailable Primary Care Provider Unavailabl e Encounter Details Date Type Department Care Team (Late st Contact Info) Description 09/23/2016 Orders Only [place] [address] , Generic Conversion, Social History [...] Diagnosis Comments BASIC METABOLIC PANEL TIMED 09/23/2016 8:01 AM CDT documented in this encounter Results * (ABNORMAL) BASIC METABOLIC PANEL (09/23/2016 8:01 AM CDT) SODIUM S/P/B 133(L) 135 - 147 MMOL/L 09/23/2016 7:[address] [facility] POTASSIUM S/P/B 4.1 3.5 - 5.0 MMOL/L 09/23/2016 7:[address] [facility] CHLORIDE S/P/B 110(H) 98 - 107 MMOL/L 09/23/2016 7:[address] [facility] CO2 12.6(L) 22 - 29 MMOL/L 09/23/2016 7:[address] [facility] GLUCOSE 179(H) 70 - 109 MG/DL 09/23/2016 7:[address] [facility] BUN 3(L) 7 - 19 MG/DL 09/23/2016 7:[address] [facility] CREATININE S/P/B 0.57(L) 0.60 - 1.10 MG/DL 09/23/2016 7:[address] [facility] CALCIUM S/P/B 8.8 8.4 - 10.2 MG/DL 09/23/2016 7:[address] [facility] EGFR NON-AFR. AMER. 135 >60 ML/MIN/1.7 3 M2 09/23/2016 7:[address] [facility] EGFR AFR. AMER. 164 >60 ML/MIN/1.7 3 M2 09/23/2016 7:[address] [facility] ANION GAP 10.4 MMOL/L 09/23/2016 7:[address] [facility] OSMOLALITY (CALC) 267 MOSM/KG 09/23/2016 7:[address] [facility] PLASMA SPECIMEN / Unknown 09/23/2016 8:01 AM CDT 09/23/2016 7:02 AM CDT us Generic Conversion Md PASTRANA LABORATORY Final R esult [facility] [address] [place] [address], [phone] documented in this encounter Visit Diagnoses Not on filedocumented in this encounter
--- OUTSIDE RECORDS SUMMARY | 2024-05-10 18:15 | XMS_ITS | Encounter Summary ---
Author Organization [facility] Address [address] [place] [address]. [place] [address] [place] [address] Care Team Providers Care Public Affairs Director Name Role Phone Unavailable Primary Care Provider Unavailabl e Encounter Details Date Type Department Care Team (Late st Contact Info) Description 09/22/2016 Orders [place] [address] , Generic Conversion, Social History [...] Date/Time Associated Diagnosis Comments COMPREHENSIVE METABOLIC PANEL Nurse Collected Priority 09/22/2016 8:48 AM CDT documented in this encounter Results * (ABNORMAL) COMPREHENSIVE METABOLIC PANEL (09/22/2016 8:48 AM CDT) SODIUM S/P/B 134(L) 135 - 147 MMOL/L 09/22/2016 8:18 AM CDT [facility] POTASSIUM S/P/B 4.0 3.5 - 5.0 MMOL/L 09/22/2016 8:18 AM CDT [facility] CHLORIDE S/P/B 113(H) 98 - 107 MMOL/L 09/22/2016 8:18 AM CDT [facility] CO2 9.6(LL) 22 - 29 MMOL/L 09/22/2016 8:[address] [facility] Comment:Critical results bety led to and read back by KIKA HERNANDEZ @ [id number]. GLUCOSE 131(H) 70 - 109 MG/DL 09/22/2016 8:18 AM T [facility] BUN 6(L) 7 - 19 MG/DL 09/22/2016 8:18 AM T [facility] CREATININE S/P/B 0.60 0.60 - 1.10 MG/DL 09/22/2016 8:18 AM T [facility] CALCIUM S/P/B 8.7 8.4 - 10.2 MG/DL 09/22/2016 8:18 AM T [facility] BILIRUBIN TOTAL S/P/B 0.4 0.2 - 1.2 MG/DL 09/22/2016 8:18 AM T [facility] ALKALINE PHOSPHATASE S/P/B 109 52 - 144 U/L 09/22/2016 8:18 AM T [facility] AST 10 5 - 35 U/L 09/22/2016 8:[address] [facility] ALT <6 0 - 55 U/L 09/22/2016 8:[address] [facility] TOTAL PROTEIN S/P/B 6.1 6.0 - 8.3 G/DL 09/22/2016 8:[address] [facility] ALBUMIN S/P/B 3.1(L) 3.4 - 4.9 G/DL 09/22/2016 8:[address] [facility] ANION GAP 11.4 MMOL/L 09/22/2016 8:[address] [facility] OSMOLALITY (CALC) 268 MOSM/KG 09/22/2016 8:[address] [facility] EGFR NON-AFR. AMER. 127 >60 ML/MIN/1.7 3 M2 09/22/2016 8:18 AM CDT [facility] EGFR AFR. AMER. 154 >60 ML/MIN/1.7 3 M2 09/22/2016 8:18 AM CDT [facility] PLASMA SPECIMEN / Unknown 09/22/2016 8:48 AM CDT 09/22/2016 7:49 AM CDT us Generic Conversion Md PA[facility]NA LABORATORY Final R esult [facility] [address] [place] [address], [place] [phone] documented in this encounter Visit Diagnoses Not on filedocumented in this encounter
--- OUTSIDE RECORDS SUMMARY | 2024-05-10 18:15 | XMS_ITS | Encounter Summary ---
Author Organization [facility] Address [address] [place] [address]. [place] [address] [place] [address] Care Team Providers Care Agent Broker Name Role Phone Unavailable Primary Care Provider Unavailabl e Encounter Details Date Type Department Care Team (Late st Contact Info) Description 09/22/2016 Orders [place] [address] , Generic Conversion, Social History Tobacco Use [...] GLUCOSE - MCCORMICK DOCKED DEVICE Routine 09/22/2016 3:06 PM CDT documented in this encounter Results * (ABNORMAL) POCT glucose (09/22/2016 3:06 PM CDT) GLUCOSE POC 213(H) 70 - 109 09/22/2016 2:10 PM CDT [facility] ORDERS INTERFACE Comment: Notified WHOLE BLOOD SPECIMEN / Unknown 09/22/2016 3:06 PM CDT 09/22/2016 2:10 PM CDT us Generic Conversion Md PASTRANA POCT ORDERABLES - DEVIC E Final Result [facility] ORDERS INTERFACE US documented in this encounter Visit Diagnoses Not on filedocumented in this encounter
--- OUTSIDE RECORDS SUMMARY | 2024-05-10 18:15 | XMS_ITS | Encounter Summary ---
Author Organization [facility] Address [address] [place] [address]. [place] [address] [place] [address] Care Team Providers Care Data Management Associate Name Role Phone Unavailable Primary Care Provider Unavailabl e Encounter Details Date Type Department Care Team (Late st Contact Info) Description 09/23/2016 Orders Only ANY CONVERSION ONE [place], [place] [id number] , Generic Conversion, Social History Tobacco Use [...] Associated Diagnosis Comments BETA-HYDROXYBUTYRAT E TIMED 09/23/2016 1:59 AM CDT documented in this encounter Results * (ABNORMAL) BETA-HYDROXYBUTYRATE (09/23/2016 1:59 AM CDT) BETA-HYDROXYBU TYRATE 3.1(H) 0.0 - 0.3 MMOL/L 09/23/2016 1:06 AM CDT [facility] SERUM OR PLASMA SPECIMEN / Unknown 09/23/2016 1:59 AM CDT 09/23/2016 1:00 AM CDT us Generic Conversion Md [facility] LABORAT[facility] Final R esult [facility] [address] [place] [address], [id number] documented in this encounter Visit Diagnoses Not on filedocumented in this encounter
--- OUTSIDE RECORDS SUMMARY | 2024-05-10 18:16 | XMS_ITS | Encounter Summary ---
Author Organization [facility] Address [address] [place] [address]. [place] [address] [place] [address] Care Team Providers Care Clinical Research Manager Name Role Phone Unavailable Primary Care Provider Unavailabl e Encounter Details Date Type Department Care Team (Latest Contact Info) Description 08/19/2016 Abstract [facility] , Veena Sepulveda MD Social History Tobacco Use Types Packs/Day Years Used Date Smoking Tobacco: Never Assessed Comments Unknown Sex and Gender Information Value Date Recorded Sex Assigned at Not on file Legal Sex Female 11:28 PM CDT Gender Identity Not on file Sexual Orientation Not on file documented as of this encounter H&P Notes * Generic Conversion MD Eddie - 08/19/2016 1:52 PM CDT [place], [place] HISTORY AND PHYSICAL Patient Name: KARINA FUCHS Patient Location: Date of : 1995 Med Rec #: [id number] Admit/Service Date: 08/19/2016 Disch Date: 08/25/2016 Attending Physician: Ector Mayfield M.D. Date/Time Dictated: 08/19/2016 13:52 p.m. Transcribed Date/Time: 08/19/2016 15:23 p.m. Surgery Date: cc: Mima Crane M.D. Mhd Yahia Zeino, M.D. Chart Document REASON FOR ADMISSION Diabetic ketoacidosis. HISTORY OF PRESENT ILLNESS This is a 21-year-old, G1, P0, at 28 weeks 1 day gestational age who comes in with a complaint of 12 hours of nausea, vomiting and abdominal pain. She is a type 1 diabetic. Her diabetes managed by Dr. Bryant from [facility] Endocrinology. She was previously on insulin pump prior to . Her insulin regimen currently is Levemir 10 units in the morning and 10 units in the evening and then Humalog with 1:7 insulin to carb ratio with meals. She states that her symptoms began last night. She is unable to eat any dinner. She woke up this morning with typical DKA symptoms. Her blood sugar this morning was significantly elevated at 343. She denies any history of respiratory infection, fevers, chills, diarrhea, shortness of breath, chest pain or any other source of infection. She has not been around anybody who has been sick. REVIEW OF SYSTEMS A full 12-point review of systems is negative unless otherwise specified in history of present illness. PAST MEDICAL HISTORY Type 1 diabetes. PAST SURGICAL HISTORY Tonsillectomy. MEDICATIONS 1.Levemir 10 in the morning and 10 in the evening. 2.Humalog 1:7 insulin to carb ratio. ALLERGIES No known drug allergies. SOCIAL HISTORY She denies any tobacco, alcohol or drug use. FAMILY HISTORY She denies any history of blood clots or bleeding disorders. PHYSICAL EXAMINATION VITAL SIGNS: Blood pressure is 118/64, heart rate 113, respiratory rate 18 and temperature is 36.8 degrees Celsius. GENERAL: The patient looks in [id number] distress. PULMONARY: Respirations are nonlabored. They are clear to auscultation bilaterally. CARDIOVASCULAR: Regular rhythm, tachycardic rate. No murmurs, rubs or gallops are auscultated. ABDOMEN: Soft, gravid, slightly tender to palpation of the epigastric area. HEART TONES: 140 baseline, moderate variability, no accelerations, no decelerations. TOCOMETRY: Every 2 minutes contractions. LABORATORY DATA CBC shows a white blood cell count of 12.7, hemoglobin 13.8, hematocrit 39.8 and platelet count 341,000. CMP comes back showing sodium of 132 with a carbon dioxide of 8.8 and anion gap of 18.2. Her initial glucose was 264 with a beta hydroxybutyric acid that was collected at 5.2, which is significantly elevated. Urinalysis was collected, which was significant for > glucose, 80 ketones, negative for any urinary tract infection ASSESSMENT AND PLAN 1.A 21-year-old, G1, P0, 28 weeks 1 day gestational age, admitted for diabetic ketoacidosis. 2.We will consult [facility] for management of DKA. The patient was given a liter bolus of normal saline. We will continue IV fluids at 250 mL per hour normal saline at this time. We will continue with continuous heart rate monitoring. DISPOSITION It is my expectation that the patient will be inpatient stay. She will be requiring at least 2 hospital day admissions. This patient has been discussed with Dr. Arik Castro. Electronically Signed By: Arik Castro M.D. 08/27/2016 06:45 A Arik Castro M.D. Dictated by: Parminder Roberts D.O. documented in this encounter Plan of Treatment Not on file documented as of this encounter Visit Diagnoses Not on filedocumented in this encounter
--- OUTSIDE RECORDS SUMMARY | 2024-05-10 18:16 | XMS_ITS | Encounter Summary ---
Author Organization [facility] Address [address] [place] [address]. [place] [address] [place] [address] Care Team Providers Care Coordinate Measuring Machine Programmer Name Role Phone Unavailable Primary Care Provider Unavailabl e Encounter Details Date Type Department Care Team (Late st Contact Info) Description 08/24/2016 Orders Only ANY CONVERSION ONE [place], [place] [id number] , Generic Conversion, Social History Tobacco Use [...] POCT GLUCOSE - MCCORMICK DOCKED DEVICE Routine 08/24/2016 6:37 PM CDT documented in this encounter Results * POCT glucose (08/24/2016 6:37 PM CDT) GLUCOSE POC 94 70 - 109 08/24/2016 5:38 PM CDT [facility] WHOLE BLOOD SPECIMEN / Unknown 08/24/2016 6:37 PM CDT 08/24/2016 5:38 PM CDT us Generic Conversion Md PASTRANA POCT ORDERABLES - DEVIC E Final Result [facility] ORDERS INTERFACE US documented in this encounter Visit Diagnoses Not on filedocumented in this encounter
--- OUTSIDE RECORDS SUMMARY | 2024-05-10 18:16 | XMS_ITS | Encounter Summary ---
Author Organization [facility] Address [address] [place] [address]. [place] [address] [place] [address] Care Team Providers Care Form Layer Name Role Phone Unavailable Primary Care Provider Unavailabl e Encounter Details Date Type Department Care Team (Late st Contact Info) Description 08/23/2016 Orders [place] [address] , Generic Conversion, Social History [...] Associated Diagnosis Comments COMPREHENSIVE METABOLIC PANEL Routine 08/23/2016 7:06 AM CDT documented in this encounter Results * (ABNORMAL) COMPREHENSIVE METABOLIC PANEL (08/23/2016 7:06 AM CDT) SODIUM S/P/B 140 135 - 147 MMOL/L 08/23/2016 6:42 AM CDT [facility] POTASSIUM S/P/B 3.5 3.5 - 5.0 MMOL/L 08/23/2016 6:42 AM CDT [facility] CHLORIDE S/P/B 114(H) 98 - 107 MMOL/L 08/23/2016 6:42 AM CDT [facility] CO2 19.4(L) 22 - 29 MMOL/L 08/23/2016 6:42 AM [facility] GLUCOSE 83 70 - 109 MG/DL 08/23/2016 6:42 AM [facility] BUN 5(L) 7 - 19 MG/DL 08/23/2016 6:42 AM [facility] CREATININE S/P/B 0.51(L) 0.60 - 1.10 MG/DL 08/23/2016 6:42 AM [facility] CALCIUM S/P/B 8.0(L) 8.4 - 10.2 MG/DL 08/23/2016 6:42 AM [facility] BILIRUBIN TOTAL S/P/B 0.4 0.2 - 1.2 MG/DL 08/23/2016 6:42 AM [facility] ALKALINE PHOSPHATASE S/P/B 61 52 - 144 U/L 08/23/2016 6:42 AM [facility] AST 10 5 - 35 U/L 08/23/2016 6:42 AM [facility] ALT <6 0 - 55 U/L 08/23/2016 6:46 AM [facility] TOTAL PROTEIN S/P/B 5.3(L) 6.0 - 8.3 G/DL 08/23/2016 6:42 AM [facility] ALBUMIN S/P/B 2.9(L) 3.4 - 4.9 G/DL 08/23/2016 6:42 AM [facility] ANION GAP 6.6 MMOL/L 08/23/2016 6:42 AM [facility] OSMOLALITY (CALC) 276 MOSM/KG 08/23/2016 6:42 AM [facility] EGFR NON-AFR. AMER. 154 >60 ML/MIN/1.7 3 M2 08/23/2016 6:42 AM T [facility] EGFR AFR. AMER. 186 >60 ML/MIN/1.7 3 M2 08/23/2016 6:42 AM CDT [facility] PLASMA SPECIMEN / Unknown 08/23/2016 7:06 AM CDT 08/23/2016 6:08 AM CDT us Generic Conversion Md [facility] Final R esult [facility] [address] [place] [address], [id number] documented in this encounter Visit Diagnoses Not on filedocumented in this encounter
--- OUTSIDE RECORDS SUMMARY | 2024-05-10 18:16 | XMS_ITS | Encounter Summary ---
Author Organization [facility] Address [address] [place] [address]. [place] [address] [place] [address] Care Team Providers Care Junior Accountant Bookkeeper Name Role Phone Unavailable Primary Care Provider Unavailabl e Encounter Details Date Type Department Care Team (Late st Contact Info) Description 08/23/2016 Orders [place] [address] , Generic Conversion, Social History Tobacco Use [...] POCT GLUCOSE - MCCORMICK DOCKED DEVICE Routine 08/23/2016 6:13 AM CDT documented in this encounter Results * POCT glucose (08/23/2016 6:13 AM CDT) GLUCOSE POC 73 70 - 109 08/23/2016 5:16 AM CDT [facility] ORDERS INTERFACE WHOLE BLOOD SPECIMEN / Unknown 08/23/2016 6:13 AM CDT 08/23/2016 5:16 AM CDT us Generic Conversion Md PASTRANA POCT ORDERABLES - DEVIC E Final Result [facility] ORDERS INTERFACE US documented in this encounter Visit Diagnoses Not on filedocumented in this encounter
--- OUTSIDE RECORDS SUMMARY | 2024-05-10 18:16 | XMS_ITS | Encounter Summary ---
Author Organization [facility] Address [address] [place] [address]. [place] [address] [place] [address] Care Team Providers Care Brake Lining Maker Name Role Phone Unavailable Primary Care Provider Unavailabl e Encounter Details Date Type Department Care Team (Latest Contact Info) Description 08/23/2016 Abstract [facility] Social History Tobacco [...]
--- OUTSIDE RECORDS SUMMARY | 2024-05-10 18:16 | XMS_ITS | Encounter Summary ---
Author Organization [facility] Address [address] [place] [address]. [place] [address] [place] [address] Care Team Providers Care Software Support Representative Name Role Phone Unavailable Primary Care Provider Unavailabl e Encounter Details Date Type Department Care Team (Late st Contact Info) Description 08/23/2016 Orders [place] [address] , Generic Conversion, Social History [...] Associated Diagnosis Comments CBC W/DIFF AUTOMATED Routine 08/23/2016 7:06 AM CDT documented in this encounter Results * (ABNORMAL) CBC W/DIFF AUTOMATED (08/23/2016 7:06 AM CDT) WBC 7.7 4.0 - 10.8 x10'3/uL 08/23/2016 6:31 AM CDT [facility] RBC 3.90(L) 4.10 - 5.40 x10'6/uL 08/23/2016 6:31 AM CDT [facility] HGB 11.7(L) 12.0 - 16.0 G/DL 08/23/2016 6:31 AM CDT [facility] HCT 33.0(L) 36.0 - 47.0 % 08/23/2016 6:31 AM CDT [facility] MCV 84.6 78.0 - 100.0 FL 08/23/2016 6:31 AM CDT [facility] MCH 30.0 27.0 - 31.0 PG 08/23/2016 6:31 AM CDT [facility] MCHC 35.5 33.0 - 36.0 G/DL 08/23/2016 6:31 AM CDT [facility] RDW 12.7 11.5 - 14.5 % 08/23/2016 6:31 AM CDT [facility] PLT 264 150 - 350 x10'3/uL 08/23/2016 6:31 AM CDT [facility] MPV 9.4 7.4 - 10.4 FL 08/23/2016 6:31 AM CDT [facility] ABS. NEUTROPHILS TOTAL 3.97 1.60 - 8.30 x10'3/uL 08/23/2016 6:31 AM CDT [facility] ABS. LYMPHOCYTES 2.55 0.80 - 4.70 x10'3/uL 08/23/2016 6:31 AM CDT [facility] ABS. MONOCYTES 1.05 0.00 - 1.50 x10'3/uL 08/23/2016 6:31 AM CDT [facility] ABS. EOSINOPHILS 0.01 0.00 - 0.40 x10'3/uL 08/23/2016 6:31 AM CDT [facility] ABS. BASOPHILS 0.02 0.00 - 0.20 x10'3/uL 08/23/2016 6:31 AM T [facility] ABS. IMMATURE GRANULOCYTES 0.10(H) 0.00 - 0.03 x10'3/uL 08/23/2016 6:31 AM CDT [facility] ABS. NUCLEATED RBC'S 0.00 0.0 x10'3/uL 08/23/2016 6:31 AM CDT [facility] PLASMA SPECIMEN / Unknown 08/23/2016 7:06 AM CDT 08/23/2016 6:08 AM CDT us Generic Conversion Md [facility] Final R esult [facility] [address] [place] [address], [id number] documented in this encounter Visit Diagnoses Not on filedocumented in this encounter
--- OUTSIDE RECORDS SUMMARY | 2024-05-10 18:16 | XMS_ITS | Encounter Summary ---
Author Organization [facility] Address [address] [place] [address]. [place] [address] [place] [address] Care Team Providers Care Emergency Specialist Name Role Phone Unavailable Primary Care Provider Unavailabl e Encounter Details Date Type Department Care Team (Late st Contact Info) Description 08/20/2016 Orders Only ANY CONVERSION ONE [place], [place] [id number] , Generic Conversion, Social History Tobacco Use [...] POCT GLUCOSE - MCCORMICK DOCKED DEVICE Routine 08/20/2016 4:17 PM CDT documented in this encounter Results * (ABNORMAL) POCT glucose (08/20/2016 4:17 PM CDT) GLUCOSE POC 161(H) 70 - 109 08/20/2016 3:19 PM CDT [facility] ORDERS INTERFACE WHOLE BLOOD SPECIMEN / Unknown 08/20/2016 4:17 PM CDT 08/20/2016 3:19 PM CDT us Generic Conversion Md PASTRANA POCT ORDERABLES - DEVIC E Final Result [facility] ORDERS INTERFACE US documented in this encounter Visit Diagnoses Not on filedocumented in this encounter
--- OUTSIDE RECORDS SUMMARY | 2024-05-10 18:16 | XMS_ITS | Encounter Summary ---
Author Organization [facility] Address [address] [place] [address]. [place] [address] [place] [address] Care Team Providers Care Stamping Machine Operator Name Role Phone Unavailable Primary Care Provider Unavailabl e Encounter Details Date Type Department Care Team (Late st Contact Info) Description 08/23/2016 Orders [place] [address] , Generic Conversion, Social History Tobacco Use [...] GLUCOSE - MCCORMICK DOCKED DEVICE Routine 08/23/2016 6:02 PM CDT documented in this encounter Results * (ABNORMAL) POCT glucose (08/23/2016 6:02 PM CDT) GLUCOSE POC 65(L) 70 - 109 08/23/2016 5:04 PM CDT [facility] ORDERS INTERFACE Comment:RN Notified WHOLE BLOOD SPECIMEN / Unknown 08/23/2016 6:02 PM CDT 08/23/2016 5:04 PM CDT us Generic Conversion Md PASTRANA POCT ORDERABLES - DEVIC E Final Result [facility] ORDERS INTERFACE US documented in this encounter Visit Diagnoses Not on filedocumented in this encounter
--- OUTSIDE RECORDS SUMMARY | 2024-05-10 18:16 | XMS_ITS | Encounter Summary ---
Author Organization [facility] Address [address] [place] [address]. [place] [address] [place] [address] Care Team Providers Care Assistant Floor Covering Printer Name Role Phone Unavailable Primary Care Provider Unavailabl e Encounter Details Date Type Department Care Team (Late st Contact Info) Description 08/22/2016 Orders [place] [address] , Generic Conversion, Social History Tobacco Use [...] POCT GLUCOSE - MCCORMICK DOCKED DEVICE Routine 08/22/2016 11:37 AM CDT documented in this encounter Results * (ABNORMAL) POCT glucose (08/22/2016 11:37 AM CDT) GLUCOSE POC 65(L) 70 - 109 08/22/2016 10:39 AM CDT [facility] ORDERS INTERFACE Comment:RN Notified WHOLE BLOOD SPECIMEN / Unknown 08/22/2016 11:37 AM CDT 08/22/2016 10:39 AM CDT us Generic Conversion Md PASTRANA POCT ORDERABLES - DEVIC E Final Result [facility] ORDERS INTERFACE US documented in this encounter Visit Diagnoses Not on filedocumented in this encounter
--- OUTSIDE RECORDS SUMMARY | 2024-05-10 18:16 | XMS_ITS | Encounter Summary ---
Author Organization [facility] Address [address] [place] [address]. [place] [address] [place] [address] Care Team Providers Care Real Estate Listing Consultant Name Role Phone Unavailable Primary Care Provider Unavailabl e Encounter Details Date Type Department Care Team (Late st Contact Info) Description 08/21/2016 Orders [place] [address] , Generic Conversion, Social History [...] Associated Diagnosis Comments BASIC METABOLIC PANEL TIMED 08/21/2016 5:10 AM CDT documented in this encounter Results * (ABNORMAL) BASIC METABOLIC PANEL (08/21/2016 5:10 AM CDT) SODIUM S/P/B 134(L) 135 - 147 MMOL/L 08/21/2016 4:59 AM CDT [facility] POTASSIUM S/P/B 4.2 3.5 - 5.0 MMOL/L 08/21/2016 4:59 AM CDT [facility] CHLORIDE S/P/B 111(H) 98 - 107 MMOL/L 08/21/2016 4:59 AM CDT [facility] CO2 11.0(L) 22 - 29 MMOL/L 08/21/2016 4:59 AM CDT [facility] GLUCOSE 164(H) 70 - 109 MG/DL 08/21/2016 4:59 AM CDT [facility] BUN 5(L) 7 - 19 MG/DL 08/21/2016 4:59 AM CDT [facility] CREATININE S/P/B 0.60 0.60 - 1.10 MG/DL 08/21/2016 4:59 AM CDT [facility] CALCIUM S/P/B 8.8 8.4 - 10.2 MG/DL 08/21/2016 4:59 AM CDT [facility] EGFR NON-AFR. AMER. 127 >60 ML/MIN/1.7 3 M2 08/21/2016 4:59 AM CDT [facility] EGFR AFR. AMER. 154 >60 ML/MIN/1.7 3 M2 08/21/2016 4:59 AM CDT [facility] ANION GAP 12.0 MMOL/L 08/21/2016 4:59 AM CDT [facility] OSMOLALITY (CALC) 269 MOSM/KG 08/21/2016 4:59 AM CDT [facility] PLASMA SPECIMEN / Unknown 08/21/2016 5:10 AM CDT 08/21/2016 4:11 AM CDT us Generic Conversion Md [facility] Final R esult [facility] [address] [place] [address], [id number] documented in this encounter Visit Diagnoses Not on filedocumented in this encounter
--- OUTSIDE RECORDS SUMMARY | 2024-05-10 18:16 | XMS_ITS | Encounter Summary ---
Author Organization [facility] Address [address] [place] [address]. [place] [address] [place] [address] Care Team Providers Care Security Researcher Name Role Phone Unavailable Primary Care Provider Unavailabl e Encounter Details Date Type Department Care Team (Latest Contact Info) Description 08/21/2016 Abstract [facility] Social History [...]
--- OUTSIDE RECORDS SUMMARY | 2024-05-10 18:16 | XMS_ITS | Encounter Summary ---
Author Organization [facility] Address [address] [place] [address]. [place] [address] [place] [address] Care Team Providers Care Car Builder Name Role Phone Unavailable Primary Care Provider Unavailabl e Encounter Details Date Type Department Care Team (Late st Contact Info) Description 08/24/2016 Orders Only ANY CONVERSION ONE [place], [place] [id number] , Generic Conversion, Social History Tobacco Use [...] GLUCOSE - MCCORMICK DOCKED DEVICE Routine 08/24/2016 11:28 PM CDT documented in this encounter Results * POCT glucose (08/24/2016 11:28 PM CDT) GLUCOSE POC 91 70 - 109 08/24/2016 10:31 PM CDT [facility] ORDERS INTERFACE Comment:RN Notified WHOLE BLOOD SPECIMEN / Unknown 08/24/2016 11:28 PM CDT 08/24/2016 10:31 PM CDT us Generic Conversion Md PASTRANA POCT ORDERABLES - DEVIC E Final Result [facility] ORDERS INTERFACE US documented in this encounter Visit Diagnoses Not on filedocumented in this encounter
--- OUTSIDE RECORDS SUMMARY | 2024-05-10 18:16 | XMS_ITS | Encounter Summary ---
Author Organization [facility] Address [address] [place] [address]. [place] [address] [place] [address] Care Team Providers Care Elementary Assistant Teacher Name Role Phone Unavailable Primary Care Provider Unavailabl e Encounter Details Date Type Department Care Team (Late st Contact Info) Description 08/20/2016 Orders Only ANY CONVERSION ONE [place], [place] [id number] , Generic Conversion, Social History Tobacco Use [...] GLUCOSE - MCCORMICK DOCKED DEVICE Routine 08/20/2016 2:38 AM CDT documented in this encounter Results * (ABNORMAL) POCT glucose (08/20/2016 2:38 AM CDT) GLUCOSE POC 127(H) 70 - 109 08/20/2016 1:41 AM CDT [facility] ORDERS INTERFACE WHOLE BLOOD SPECIMEN / Unknown 08/20/2016 2:38 AM CDT 08/20/2016 1:41 AM CDT us Generic Conversion Md PASTRANA POCT ORDERABLES - DEVIC E Final Result [facility] ORDERS INTERFACE US documented in this encounter Visit Diagnoses Not on filedocumented in this encounter
--- OUTSIDE RECORDS SUMMARY | 2024-05-10 18:16 | XMS_ITS | Encounter Summary ---
Author Organization [facility] Address [address] [place] [address]. [place] [address] [place] [address] Care Team Providers Care Ore Bridge Operator Name Role Phone Unavailable Primary Care Provider Unavailabl e Encounter Details Date Type Department Care Team (Late st Contact Info) Description 08/21/2016 Orders Only ANY CONVERSION ONE [place], [place] [id number] , Generic Conversion, Social History Tobacco Use [...] Priority Date/Time Associated Diagnosis Comments LIPASE STAT 08/21/2016 8:40 AM CDT documented in this encounter Results * (ABNORMAL) LIPASE (08/21/2016 8:40 AM CDT) LIPASE <4(L) 8 - 78 UNITS/L 08/21/2016 8:44 AM CDT [facility] SERUM OR PLASMA SPECIMEN / Unknown 08/21/2016 8:40 AM CDT 08/21/2016 7:41 AM CDT us Generic Conversion Md [facility] Final R esult [facility] [address] [place] [address], [id number] documented in this encounter Visit Diagnoses Not on filedocumented in this encounter
--- OUTSIDE RECORDS SUMMARY | 2024-05-10 18:16 | XMS_ITS | Encounter Summary ---
Author Organization [facility] Address [address] [place] [address]. [place] [address] [place] [address] Care Team Providers Care Arrt Technologist Name Role Phone Unavailable Primary Care Provider Unavailabl e Encounter Details Date Type Department Care Team (Latest Contact Info) Description 08/22/2016 Abstract [facility] Social History Tobacco Use Types [...]
--- OUTSIDE RECORDS SUMMARY | 2024-05-10 18:16 | XMS_ITS | Encounter Summary ---
Author Organization [facility] Address [address] [place] [address]. [place] [address] [place] [address] Care Team Providers Care Film Projector Operator Name Role Phone Unavailable Primary Care Provider Unavailabl e Encounter Details Date Type Department Care Team (Late st Contact Info) Description 08/21/2016 [place] [address] , Generic Conversion, Social History Tobacco Use [...] Procedure Name Priority Date/Time Associated Diagnosis Comments AMYLASE STAT 08/21/2016 8:40 AM CDT documented in this encounter Results * AMYLASE (08/21/2016 8:40 AM CDT) AMYLASE S/P/B 27 25 - 125 UNITS/L 08/21/2016 8:35 AM CDT [facility] SERUM OR PLASMA SPECIMEN / Unknown 08/21/2016 8:40 AM CDT 08/21/2016 7:41 AM CDT us Generic Conversion Md [facility] Final R esult [facility] [address] [place] [id number], [id number] documented in this encounter Visit Diagnoses Not on filedocumented in this encounter
--- OUTSIDE RECORDS SUMMARY | 2024-05-10 18:16 | XMS_ITS | Encounter Summary ---
Author Organization [facility] Address [address] [place] [address]. [place] [address] [place] [address] Care Team Providers Care Boot Lace Cutter Machine Name Role Phone Unavailable Primary Care Provider Unavailabl e Encounter Details Date Type Department Care Team (Latest Contact Info) Description 08/20/2016 Abstract [facility] Medical Group [...]
--- OUTSIDE RECORDS SUMMARY | 2024-05-10 18:16 | XMS_ITS | Encounter Summary ---
Author Organization [facility] - [facility] Address [address] [place] [address]. [place] [address] [place] [address] Care Team Providers Care Area Field Person Name Role Phone Unavailable Primary Care Provider Unavailabl e Encounter Details Date Type Department Care Team (Late st Contact Info) Description 08/24/2016 [place] [address] , Generic Conversion, Social History Tobacco Use [...] GLUCOSE - MCCORMICK DOCKED DEVICE Routine 08/24/2016 5:00 AM CDT documented in this encounter Results * POCT glucose (08/24/2016 5:00 AM CDT) GLUCOSE POC 105 70 - 109 08/24/2016 4:05 AM CDT [facility] LAB ORDERS INTERFACE WHOLE BLOOD SPECIMEN / Unknown 08/24/2016 5:00 AM CDT 08/24/2016 4:05 AM CDT us Generic Conversion Md PASTRANA POCT ORDERABLES - DEVIC E Final Result [facility] LAB ORDERS INTERFACE US documented in this encounter Visit Diagnoses Not on filedocumented in this encounter
--- OUTSIDE RECORDS SUMMARY | 2024-05-10 18:16 | XMS_ITS | Encounter Summary ---
Author Organization [facility] - [facility] Address [address] [place] [address]. [place] [address] [place] [address] Care Team Providers Care Shipping Lead Person Name Role Phone Unavailable Primary Care Provider Unavailabl e Encounter Details Date Type Department Care Team (Late st Contact Info) Description 08/20/2016 Orders Only ANY CONVERSION ONE [place], [place] [id number] , Generic Conversion, Social History Tobacco Use [...] GLUCOSE - MCCORMICK DOCKED DEVICE Routine 08/20/2016 7:33 PM CDT documented in this encounter Results * (ABNORMAL) POCT glucose (08/20/2016 7:33 PM CDT) GLUCOSE POC 184(H) 70 - 109 08/20/2016 6:34 PM CDT [facility] LAB ORDERS INTERFACE WHOLE BLOOD SPECIMEN / Unknown 08/20/2016 7:33 PM CDT 08/20/2016 6:34 PM CDT us Generic Conversion Md PASTRANA POCT ORDERABLES - DEVIC E Final Result [facility] LAB ORDERS INTERFACE US documented in this encounter Visit Diagnoses Not on filedocumented in this encounter
--- OUTSIDE RECORDS SUMMARY | 2024-05-10 18:16 | XMS_ITS | Encounter Summary ---
Author Organization [facility] - [facility] Address [address] [place] [address]. [place] [address] [place] [address] Care Team Providers Care System Programmer Name Role Phone Unavailable Primary Care Provider Unavailabl e Encounter Details Date Type Department Care Team (Late st Contact Info) Description 08/20/2016 Orders Only [place] [address] , Generic Conversion, Social History Tobacco Use [...] GLUCOSE - MCCORMICK DOCKED DEVICE Routine 08/20/2016 3:46 AM CDT documented in this encounter Results * (ABNORMAL) POCT glucose (08/20/2016 3:46 AM CDT) GLUCOSE POC 149(H) 70 - 109 08/20/2016 2:50 AM CDT [facility] LAB ORDERS INTERFACE WHOLE BLOOD SPECIMEN / Unknown 08/20/2016 3:46 AM CDT 08/20/2016 2:50 AM CDT us Generic Conversion Md PASTRANA POCT ORDERABLES - DEVIC E Final Result [facility] LAB ORDERS INTERFACE US documented in this encounter Visit Diagnoses Not on filedocumented in this encounter
--- OUTSIDE RECORDS SUMMARY | 2024-05-10 18:16 | XMS_ITS | Encounter Summary ---
Author Organization [facility] - [facility] Address [address] [place] [address]. [place] [address] [place] [address] Care Team Providers Care Certified Neurodiagnostic Technologist Name Role Phone Unavailable Primary Care Provider Unavailabl e Encounter Details Date Type Department Care Team (Late st Contact Info) Description 08/21/2016 Orders Only ANY CONVERSION ONE [place], [place] [id number] , Generic Conversion, Social History Tobacco Use [...] POCT GLUCOSE - MCCORMICK DOCKED DEVICE Routine 08/21/2016 10:30 AM CDT documented in this encounter Results * (ABNORMAL) POCT glucose (08/21/2016 10:30 AM CDT) GLUCOSE POC 173(H) 70 - 109 08/21/2016 9:34 AM CDT [facility] LAB ORDERS INTERFACE Comment:RN Notified WHOLE BLOOD SPECIMEN / Unknown 08/21/2016 10:30 AM CDT 08/21/2016 9:34 AM CDT us Generic Conversion Md PASTRANA POCT ORDERABLES - DEVIC E Final Result [facility] LAB ORDERS INTERFACE US documented in this encounter Visit Diagnoses Not on filedocumented in this encounter
--- OUTSIDE RECORDS SUMMARY | 2024-05-10 18:16 | XMS_ITS | Encounter Summary ---
Author Organization [facility] - [facility] Address [address] [place] [address]. [place] [address] [place] [address] Care Team Providers Care Combat Systems Officer Name Role Phone Unavailable Primary Care Provider Unavailabl e Encounter Details Date Type Department Care Team (Late st Contact Info) Description 08/20/2016 Orders Only ANY CONVERSION ONE [place], [place] [id number] , Generic Conversion, Social History Tobacco Use [...] GLUCOSE - MCCORMICK DOCKED DEVICE Routine 08/20/2016 2:05 AM CDT documented in this encounter Results * (ABNORMAL) POCT glucose (08/20/2016 2:05 AM CDT) GLUCOSE POC 41(L) 70 - 109 08/20/2016 1:07 AM CDT [facility] LAB ORDERS INTERFACE Comment:RN Notified WHOLE BLOOD SPECIMEN / Unknown 08/20/2016 2:05 AM CDT 08/20/2016 1:07 AM CDT us Generic Conversion Md PASTRANA POCT ORDERABLES - DEVIC E Final Result [facility] LAB ORDERS INTERFACE US documented in this encounter Visit Diagnoses Not on filedocumented in this encounter
--- OUTSIDE RECORDS SUMMARY | 2024-05-10 18:16 | XMS_ITS | Encounter Summary ---
Author Organization [facility] Address [address] [place] [address]. [place] [address] [place] [address] Care Team Providers Care Weapons Mechanic Name Role Phone Unavailable Primary Care Provider Unavailabl e Encounter Details Date Type Department Care Team (Late st Contact Info) Description 08/23/2016 Orders [place] [address] , Generic Conversion, Social History [...] Name Priority Date/Time Associated Diagnosis Comments URINALYSIS Routine 08/23/2016 12:11 AM CDT documented in this encounter Results * (ABNORMAL) URINALYSIS (08/23/2016 12:11 AM CDT) COLOR (U) YELLOW 08/22/2016 11:31 PM CDT [facility] TRANSPARENCY HAZY 08/22/2016 11:31 PM CDT [facility] SPECIFIC GRAVITY (U) 1.012 1.002 - 1.035 08/22/2016 11:31 PM CDT [facility] U PH 5.0 5 - 8 08/22/2016 11:31 PM CDT [facility] PROTEIN (U) NEGATIVE NEGATIVE 08/22/2016 11:31 PM CDT [facility] URINE GLUCOSE 50(A) NEGATIVE MG/DL 08/22/2016 11:31 PM CDT [facility] KETONES MG/DL (U) NEGATIVE NEGATIVE 08/22/2016 11:31 PM CDT [facility] BILIRUBIN (U) NEGATIVE NEGATIVE 08/22/2016 11:31 PM CDT [facility] BLOOD (U) NEGATIVE NEGATIVE 08/22/2016 11:31 PM CDT [facility] NITRITES NEGATIVE NEGATIVE 08/22/2016 11:31 PM CDT [facility] UROBILINOGEN NORMAL 0 - 1 EU/DL 08/22/2016 11:31 PM CDT [facility] LEUKOCYTES (U) TRACE(A) NEGATIVE 08/22/2016 11:31 PM CDT [facility] RBC/HPF 1 /HPF 08/22/2016 11:31 PM CDT [facility] WBC/HPF 6 /HPF 08/22/2016 11:31 PM CDT [facility] BACTERIA (U) PRESENT /HPF 08/22/2016 11:31 PM CDT [facility] SQUAMOUS EPITHELIALS 4 08/22/2016 11:31 PM CDT [facility] NON SQUAMOUS EPITHELIAL <1 /HPF 08/22/2016 11:31 PM CDT [facility] URINE SPECIMEN / Unknown 08/23/2016 12:11 AM CDT 08/22/2016 11:16 PM CDT us Generic Conversion Md PASTRANA URINE ORDERABLES Final Result [facility] [address] [place] [address], [place] [phone] [id number] documented in this encounter Visit Diagnoses Not on filedocumented in this encounter
--- OUTSIDE RECORDS SUMMARY | 2024-05-10 18:16 | XMS_ITS | Encounter Summary ---
Author Organization [facility] - [facility] Address [address] [place] [address]. [place] [address] [place] [address] Care Team Providers Care Hyperbaric Nurse Name Role Phone Unavailable Primary Care Provider Unavailabl e Encounter Details Date Type Department Care Team (Late st Contact Info) Description 08/24/2016 Orders Only ANY CONVERSION ONE [place], [place] [id number] , Generic Conversion, Social History Tobacco Use [...] GLUCOSE - MCCORMICK DOCKED DEVICE Routine 08/24/2016 3:34 PM CDT documented in this encounter Results * POCT glucose (08/24/2016 3:34 PM CDT) GLUCOSE POC 71 70 - 109 08/24/2016 2:35 PM CDT [facility] LAB ORDERS INTERFACE Comment:RN Notified WHOLE BLOOD SPECIMEN / Unknown 08/24/2016 3:34 PM CDT 08/24/2016 2:35 PM CDT us Generic Conversion Md PASTRANA POCT ORDERABLES - DEVIC E Final Result [facility] LAB ORDERS INTERFACE US documented in this encounter Visit Diagnoses Not on filedocumented in this encounter
--- OUTSIDE RECORDS SUMMARY | 2024-05-10 18:16 | XMS_ITS | Encounter Summary ---
Author Organization [facility] Address [address] [place] [address]. [place] [address] [place] [address] Care Team Providers Care Senior Python Developer Name Role Phone Unavailable Primary Care Provider Unavailabl e Encounter Details Date Type Department Care Team (Late st Contact Info) Description 08/22/2016 Orders Only [place] [address] , Generic Conversion, Social History [...] Associated Diagnosis Comments BASIC METABOLIC PANEL TIMED 08/22/2016 7:32 AM CDT documented in this encounter Results * (ABNORMAL) BASIC METABOLIC PANEL (08/22/2016 7:32 AM CDT) SODIUM S/P/B 135 135 - 147 MMOL/L 08/22/2016 7:10 AM CDT [facility] POTASSIUM S/P/B 3.5 3.5 - 5.0 MMOL/L 08/22/2016 7:10 AM CDT [facility] CHLORIDE S/P/B 111(H) 98 - 107 MMOL/L 08/22/2016 7:10 AM CDT [facility] CO2 16.5(L) 22 - 29 MMOL/L 08/22/2016 7:10 AM CDT [facility] GLUCOSE 101 70 - 109 MG/DL 08/22/2016 7:10 AM CDT [facility] BUN 6(L) 7 - 19 MG/DL 08/22/2016 7:10 AM CDT [facility] CREATININE S/P/B 0.57(L) 0.60 - 1.10 MG/DL 08/22/2016 7:10 AM CDT [facility] CALCIUM S/P/B 8.3(L) 8.4 - 10.2 MG/DL 08/22/2016 7:10 AM CDT [facility] EGFR NON-AFR. AMER. 135 >60 ML/MIN/1.7 3 M2 08/22/2016 7:10 AM CDT [facility] EGFR AFR. AMER. 164 >60 ML/MIN/1.7 3 M2 08/22/2016 7:10 AM CDT [facility] ANION GAP 7.5 MMOL/L 08/22/2016 7:10 AM CDT [facility] OSMOLALITY (CALC) 268 MOSM/KG 08/22/2016 7:10 AM T [facility] PLASMA SPECIMEN / Unknown 08/22/2016 7:32 AM CDT 08/22/2016 6:34 AM CDT us Generic Conversion Md PASTRANA LABORATORY Final R esult [facility] [address] [place] [address], [id number] documented in this encounter Visit Diagnoses Not on filedocumented in this encounter
--- OUTSIDE RECORDS SUMMARY | 2024-05-10 18:16 | XMS_ITS | Encounter Summary ---
Author Organization [facility] - [facility] Address [address] [place] [address]. [place] [address] [place] [address] Care Team Providers Care Sports Reporter Name Role Phone Unavailable Primary Care Provider Unavailabl e Encounter Details Date Type Department Care Team (Late st Contact Info) Description 08/22/2016 Orders Only [place] [address] , Generic Conversion, Social History Tobacco Use [...] GLUCOSE - MCCORMICK DOCKED DEVICE Routine 08/22/2016 10:43 AM CDT documented in this encounter Results * (ABNORMAL) POCT glucose (08/22/2016 10:43 AM CDT) GLUCOSE POC 68(L) 70 - 109 08/22/2016 9:45 AM CDT [facility] LAB ORDERS INTERFACE Comment:RN Notified WHOLE BLOOD SPECIMEN / Unknown 08/22/2016 10:43 AM CDT 08/22/2016 9:45 AM CDT us Generic Conversion Md PASTRANA POCT ORDERABLES - DEVIC E Final Result [facility] LAB ORDERS INTERFACE US documented in this encounter Visit Diagnoses Not on filedocumented in this encounter
--- OUTSIDE RECORDS SUMMARY | 2024-05-10 18:16 | XMS_ITS | Encounter Summary ---
Author Organization [facility] - [facility] Address [address] [place] [address]. [place] [address] [place] [address] Care Team Providers Care Associate Technician Name Role Phone Unavailable Primary Care Provider Unavailabl e Encounter Details Date Type Department Care Team (Late st Contact Info) Description 08/22/2016 Orders Only ANY CONVERSION ONE [place], [place] [id number] , Generic Conversion, Social History Tobacco Use [...] GLUCOSE - MCCORMICK DOCKED DEVICE Routine 08/22/2016 1:50 PM CDT documented in this encounter Results * (ABNORMAL) POCT glucose (08/22/2016 1:50 PM CDT) GLUCOSE POC 111(H) 70 - 109 08/22/2016 12:54 PM CDT [facility] LAB ORDERS INTERFACE Comment:RN Notified WHOLE BLOOD SPECIMEN / Unknown 08/22/2016 1:50 PM CDT 08/22/2016 12:54 PM CDT us Generic Conversion Md PASTRANA POCT ORDERABLES - DEVIC E Final Result [facility] LAB ORDERS INTERFACE US documented in this encounter Visit Diagnoses Not on filedocumented in this encounter
--- OUTSIDE RECORDS SUMMARY | 2024-05-10 18:16 | XMS_ITS | Encounter Summary ---
Author Organization [facility] Address [address] [place] [address]. [place] [address] [place] [address] Care Team Providers Care Maintenance Job Titles Name Role Phone Unavailable Primary Care Provider Unavailabl e Encounter Details Date Type Department Care Team (Late st Contact Info) Description 08/21/2016 Orders Only ANY CONVERSION ONE [place], [place] [id number] , Generic Conversion, Social History Tobacco Use [...] Date/Time Associated Diagnosis Comments BETA-HYDROXYBUTYRAT E TIMED 08/21/2016 9:10 PM CDT documented in this encounter Results * (ABNORMAL) BETA-HYDROXYBUTYRATE (08/21/2016 9:10 PM CDT) BETA-HYDROXYBU TYRATE 3.0(H) 0.0 - 0.3 MMOL/L 08/21/2016 8:25 PM CDT [facility] SERUM OR PLASMA SPECIMEN / Unknown 08/21/2016 9:10 PM CDT 08/21/2016 8:17 PM CDT us Generic Conversion Md PASTRANA LABORATORY Final R esult [facility] [address] [place] [address], [id number] documented in this encounter Visit Diagnoses Not on filedocumented in this encounter
--- OUTSIDE RECORDS SUMMARY | 2024-05-10 18:16 | XMS_ITS | Encounter Summary ---
Author Organization [facility] - [facility] Address [address] [place] [address]. [place] [address] [place] [address] Care Team Providers Care Ice Cream Vault Worker Name Role Phone Unavailable Primary Care Provider Unavailabl e Encounter Details Date Type Department Care Team (Late st Contact Info) Description 08/24/2016 Orders [place] [address] , Generic Conversion, Social History Tobacco Use [...] GLUCOSE - MCCORMICK DOCKED DEVICE Routine 08/24/2016 8:07 AM CDT documented in this encounter Results * POCT glucose (08/24/2016 8:07 AM CDT) GLUCOSE POC 94 70 - 109 08/24/2016 7:10 AM CDT [facility] LAB ORDERS INTERFACE Comment:RN Notified WHOLE BLOOD SPECIMEN / Unknown 08/24/2016 8:07 AM CDT 08/24/2016 7:10 AM CDT us Generic Conversion Md PASTRANA POCT ORDERABLES - DEVIC E Final Result [facility] LAB ORDERS INTERFACE US documented in this encounter Visit Diagnoses Not on filedocumented in this encounter
--- OUTSIDE RECORDS SUMMARY | 2024-05-10 18:16 | XMS_ITS | Encounter Summary ---
Author Organization [facility] - [facility] Address [address] [place] [address]. [place] [address] [place] [address] Care Team Providers Care Pipe Liner Name Role Phone Unavailable Primary Care Provider Unavailabl e Encounter Details Date Type Department Care Team (Late st Contact Info) Description 08/22/2016 Orders Only ANY CONVERSION ONE [place], [place] [id number] , Generic Conversion, Social History Tobacco Use [...] GLUCOSE - MCCORMICK DOCKED DEVICE Routine 08/22/2016 6:33 AM CDT documented in this encounter Results * (ABNORMAL) POCT glucose (08/22/2016 6:33 AM CDT) GLUCOSE POC 118(H) 70 - 109 08/22/2016 5:37 AM CDT [facility] LAB ORDERS INTERFACE WHOLE BLOOD SPECIMEN / Unknown 08/22/2016 6:33 AM CDT 08/22/2016 5:36 AM CDT us Generic Conversion Md PASTRANA POCT ORDERABLES - DEVIC E Final Result [facility] ORDERS INTERFACE US documented in this encounter Visit Diagnoses Not on filedocumented in this encounter
--- OUTSIDE RECORDS SUMMARY | 2024-05-10 18:16 | XMS_ITS | Encounter Summary ---
Author Organization [facility] - [facility] Address [address] [place] [address]. [place] [address] [place] [address] Care Team Providers Care Pbx Teacher Name Role Phone Unavailable Primary Care Provider Unavailabl e Encounter Details Date Type Department Care Team (Late st Contact Info) Description 08/24/2016 Orders Only ANY CONVERSION ONE [place], [place] [id number] , Generic Conversion, Social History Tobacco Use [...] GLUCOSE - MCCORMICK DOCKED DEVICE Routine 08/24/2016 2:03 PM CDT documented in this encounter Results * (ABNORMAL) POCT glucose (08/24/2016 2:03 PM CDT) GLUCOSE POC 125(H) 70 - 109 08/24/2016 1:05 PM CDT [facility] LAB ORDERS INTERFACE WHOLE BLOOD SPECIMEN / Unknown 08/24/2016 2:03 PM CDT 08/24/2016 1:05 PM CDT us Generic Conversion Md PASTRANA POCT ORDERABLES - DEVIC E Final Result [facility] LAB ORDERS INTERFACE US documented in this encounter Visit Diagnoses Not on filedocumented in this encounter
--- OUTSIDE RECORDS SUMMARY | 2024-05-10 18:16 | XMS_ITS | Encounter Summary ---
Author Organization [facility] Address [address] [place] [address]. [place] [address] [place] [address] Care Team Providers Care Firer Watertender Name Role Phone Unavailable Primary Care Provider Unavailabl e Encounter Details Date Type Department Care Team (Latest Contact Info) Description 08/24/2016 Abstract [facility] Social History Tobacco [...]
--- OUTSIDE RECORDS SUMMARY | 2024-05-10 18:16 | XMS_ITS | Encounter Summary ---
Author Organization [facility] - [facility] Address [address] [place] [address]. [place] [address] [place] [address] Care Team Providers Care Veterinary Epidemiologist Name Role Phone Unavailable Primary Care Provider Unavailabl e Encounter Details Date Type Department Care Team (Late st Contact Info) Description 08/24/2016 Orders Only ANY CONVERSION ONE [place], [place] [id number] , Generic Conversion, Social History Tobacco Use [...] GLUCOSE - MCCORMICK DOCKED DEVICE Routine 08/24/2016 4:05 PM CDT documented in this encounter Results * POCT glucose (08/24/2016 4:05 PM CDT) GLUCOSE POC 82 70 - 109 08/24/2016 3:24 PM CDT [facility] ORDERS INTERFACE WHOLE BLOOD SPECIMEN / Unknown 08/24/2016 4:05 PM CDT 08/24/2016 3:24 PM CDT us Generic Conversion Md PASTRANA POCT ORDERABLES - DEVIC E Final Result [facility] LAB ORDERS INTERFACE US documented in this encounter Visit Diagnoses Not on filedocumented in this encounter
--- OUTSIDE RECORDS SUMMARY | 2024-05-10 18:16 | XMS_ITS | Encounter Summary ---
Author Organization [facility] Address [address] [place] [address]. [place] [address] [place] [address] Care Team Providers Care Gerontology Aide Name Role Phone Unavailable Primary Care Provider Unavailabl e Encounter Details Date Type Department Care Team (Late st Contact Info) Description 08/22/2016 Orders Only ANY CONVERSION ONE [place], [place] [id number] , Generic Conversion, Social History Tobacco Use [...] Associated Diagnosis Comments TYPE & SCREEN TIMED 08/22/2016 7:32 AM CDT documented in this encounter Results * TYPE & SCREEN (08/22/2016 7:32 AM CDT) ABO/RH O POSITIVE 08/22/2016 8:09 AM CDT [facility] ANTIBODY SCREEN NEGATIVE 7 8:09 AM CDT [facility] SAMPLE EXPIRATION 08/25/2016 08/22/2016 7:06 AM CDT [facility] 08/22/2016 7:32 AM CDT 08/22/2016 6:34 AM CDT us Generic Conversion Md PASTRANA BLOOD BANK TEST ORDERAB LES Final Result Performing Organization Address City/State/[facility] Co de Phone Number [facility] [address] [place] [address], [id number] documented in this encounter Visit Diagnoses Not on filedocumented in this encounter
--- OUTSIDE RECORDS SUMMARY | 2024-05-10 18:16 | XMS_ITS | Encounter Summary ---
Author Organization [facility] - [facility] Address [address] [place] [address]. [place] [address] [place] [address] Care Team Providers Care Dairy Feed Worker Name Role Phone Unavailable Primary Care Provider Unavailabl e Encounter Details Date Type Department Care Team (Late st Contact Info) Description 08/21/2016 Orders Only ANY CONVERSION ONE [place], [place] [id number] , Generic Conversion, Social History Tobacco Use [...] GLUCOSE - MCCORMICK DOCKED DEVICE Routine 08/21/2016 10:37 PM CDT documented in this encounter Results * (ABNORMAL) POCT glucose (08/21/2016 10:37 PM CDT) GLUCOSE POC 117(H) 70 - 109 08/21/2016 9:39 PM CDT [facility] LAB ORDERS INTERFACE WHOLE BLOOD SPECIMEN / Unknown 08/21/2016 10:37 PM CDT 08/21/2016 9:39 PM CDT us Generic Conversion Md PASTRANA POCT ORDERABLES - DEVIC E Final Result [facility] ORDERS INTERFACE US documented in this encounter Visit Diagnoses Not on filedocumented in this encounter
--- OUTSIDE RECORDS SUMMARY | 2024-05-10 18:16 | XMS_ITS | Encounter Summary ---
Author Organization [facility] - [facility] Address [address] [place] [address]. [place] [address] [place] [address] Care Team Providers Care Collar Padder Blindstitch Name Role Phone Unavailable Primary Care Provider Unavailabl e Encounter Details Date Type Department Care Team (Late st Contact Info) Description 08/20/2016 Orders Only ANY CONVERSION ONE [place], [place] [id number] , Generic Conversion, Social History Tobacco Use [...] GLUCOSE - MCCORMICK DOCKED DEVICE Routine 08/20/2016 11:13 AM CDT documented in this encounter Results * (ABNORMAL) POCT glucose (08/20/2016 11:13 AM CDT) GLUCOSE POC 173(H) 70 - 109 08/20/2016 10:15 AM CDT [facility] LAB ORDERS INTERFACE WHOLE BLOOD SPECIMEN / Unknown 08/20/2016 11:13 AM CDT 08/20/2016 10:15 AM CDT us Generic Conversion Md PASTRANA POCT ORDERABLES - DEVIC E Final Result [facility] ORDERS INTERFACE US documented in this encounter Visit Diagnoses Not on filedocumented in this encounter
--- OUTSIDE RECORDS SUMMARY | 2024-05-10 18:16 | XMS_ITS | Encounter Summary ---
Author Organization [facility] Address [address] [place] [address]. [place] [address] [place] [address] Care Team Providers Care Analytic Manager Name Role Phone Unavailable Primary Care Provider Unavailabl e Encounter Details Date Type Department Care Team (Latest Contact Info) Description 08/22/2016 Abstract [facility] Medical [facility] [...] Procedure Name Priority Date/Time Associated Diagnosis Comments US ABD LIMITED Routine 08/22/2016 5:20 PM CDT documented in this encounter Results * US ABD LIMITED (08/22/2016 5:20 PM CDT) Anatomical Region Laterality Modality Abdomen Ultrasound 08/22/2016 5:20 PM CDT 08/22/2016 5:20 PM CDT Narrative 08/22/2016 5:31 PM CDT [facility] ?? [place], [place] ?? Department of Radiology ? KARY FUCHS Ordering MD: PRINCESS SANDERS MD, RES ?? Acct: [id number] ?? : 1995 Pt Type: ADM IN ?? Sex: F Ord Site: MAIN ? Study Date Accession # Procedure Code Procedure ?? 04/22/17 [id number] LVPSN US Right Upper Quadrant ? Signed ? EXAMINATION: Limited abdomen ultrasound: Gallbladder ? CLINICAL HISTORY: Epigastric pain and decreased appetite. 28 weeks . ? COMPARISON: CTA of the chest following the pulmonary embolism protocol dated 03/13/2015 ? TECHNIQUE: Ultrasound of the right upper quadrant was performed to assess grayscale appearance ?? and color-flow characteristics. ? FINDINGS: ?? Liver: Normal in size. Mild increased echogenicity, which can be seen with hepatic steatosis. ?? Normal hepatopetal flow of the portal vein. ?? Pancreas is not well visualized due to overlying bowel gas. ?? Gallbladder: No wall thickening, cholecystic fluid, stones or sludge. ??Negative sonographic ?? Schroeder's sign. ?? Common hepatic duct: Measure up to 4 mm. in diameter. ??No distinct intraluminal stone. ?? Common bile duct ??Suboptimally visualized due to overlying bowel gas. ?? IVC is patent. ?? Right kidney exhibits hydronephrosis it measures 10.7 x 5.0 x 5.1 cm. ? Other findings: No ascites. ? IMPRESSION: ?? 1. No evidence of cholelithiasis or acute cholecystitis is observed. ?? 2. Right-sided hydronephrosis. This could be secondary to or a nonvisualized distal ?? stone. ? The attending radiologist has reviewed the image(s) and agrees with the content of this report. ? Electronically Signed By: KELBY MARADIAGA MD 08/22/161728 ? Dictated On: 08/22/16 1720 ?? Interpreted By: ANA SHAIKH MD, RES ?? Transcribed On: 08/22/161724 - INFCE ? CC: ? PRINCESS SANDERS MD, RES Procedure Note Veena Pastrana MD - 02/24/2018 [place], [place] Department of Radiology KARY FUCHS MD: PRINCESS SANDERS MD, RES Acct: [id number] : 1995 Pt Type: ADM IN Sex: F Ord Site: MAIN Study Date Accession # Procedure Code Procedure 08/22/16 [id number] LVPSN US Right Upper Quadrant Signed EXAMINATION: Limited abdomen ultrasound: Gallbladder CLINICAL HISTORY: Epigastric pain and decreased appetite. 28 weeks. COMPARISON: CTA of the chest following the pulmonary embolism protocoldated 03/13/2015 TECHNIQUE: Ultrasound of the right upper quadrant was performed to assessgrayscale appearance and color-flow characteristics. FINDINGS: Liver: Normal in size. Mild increased echogenicity, which can be seenwith hepatic steatosis. Normal hepatopetal flow of the portal vein. Pancreas is not well visualized due to overlying bowel gas. Gallbladder: No wall thickening, cholecystic fluid, stones or sludge.Negative sonographic Schroeder's sign. Common hepatic duct: Measure up to 4 mm. in diameter. No distinctintraluminal stone. Common bile duct Suboptimally visualized due to overlying bowel gas. IVC is patent. Right kidney exhibits hydronephrosis it measures 10.7 x 5.0 x 5.1 cm. Other findings: No ascites. IMPRESSION: 1. No evidence of cholelithiasis or acute cholecystitis is observed. 2. Right-sided hydronephrosis. This could be secondary to or anonvisualized distal stone. The attending radiologist has reviewed the image(s) and agrees with thecontent of this report. Electronically Signed By: KELBY MARADIAGA MD 08/22/161728 Dictated On: 08/22/161719 Interpreted By: ANA SHAIKH MD, RES Transcribed On: 08/22/161724 - INF[facility] CC: PRINCESS SANDERS MD, RES us Generic Conversion Md PASTRANA ULTRASOUND Final R esult documented in this encounter Visit Diagnoses Not on filedocumented in this encounter
--- OUTSIDE RECORDS SUMMARY | 2024-05-10 18:16 | XMS_ITS | Encounter Summary ---
Author Organization [facility] Address [address] [place] [address]. [place] [address] [place] [address] Care Team Providers Care Paralegal Supervisor Name Role Phone Unavailable Primary Care Provider Unavailabl e Encounter Details Date Type Department Care Team (Late st Contact Info) Description 08/21/2016 Orders Only ANY CONVERSION ONE [place], [place] [id number] , Generic Conversion, Social History Tobacco Use [...] Priority Date/Time Associated Diagnosis Comments MAGNESIUM STAT 08/21/2016 9:10 PM CDT documented in this encounter Results * (ABNORMAL) MAGNESIUM (08/21/2016 9:10 PM CDT) MAGNESIUM 1.4(L) 1.7 - 2.2 MG/DL 08/21/2016 10:01 PM CDT [facility] SERUM OR PLASMA SPECIMEN / Unknown 08/21/2016 9:10 PM CDT 08/21/2016 9:52 PM CDT us Generic Conversion Md [facility] Final R esult [facility] [address] [place] [address], [id number] documented in this encounter Visit Diagnoses Not on filedocumented in this encounter
--- OUTSIDE RECORDS SUMMARY | 2024-05-10 18:16 | XMS_ITS | Encounter Summary ---
Author Organization [facility] Address [address] [place] [address]. [place] [address] [place] [address] Care Team Providers Care Day Light Relief Operator Name Role Phone Unavailable Primary Care Provider Unavailabl e Encounter Details Date Type Department Care Team (Late st Contact Info) Description 08/21/2016 Orders Only ANY CONVERSION ONE [place], [place] [id number] , Generic Conversion, Social History Tobacco Use [...] GLUCOSE - MCCORMICK DOCKED DEVICE Routine 08/21/2016 6:31 PM CDT documented in this encounter Results * (ABNORMAL) POCT glucose (08/21/2016 6:31 PM CDT) GLUCOSE POC 124(H) 70 - 109 08/21/2016 5:33 PM CDT [facility] ORDERS INTERFACE WHOLE BLOOD SPECIMEN / Unknown 08/21/2016 6:31 PM CDT 08/21/2016 5:33 PM CDT us Generic Conversion Md PASTRANA POCT ORDERABLES - DEVIC E Final Result [facility] ORDERS INTERFACE US documented in this encounter Visit Diagnoses Not on filedocumented in this encounter
--- OUTSIDE RECORDS SUMMARY | 2024-05-10 18:16 | XMS_ITS | Encounter Summary ---
Author Organization [facility] Address [address] [place] [address]. [place] [address] [place] [address] Care Team Providers Care Lumber Kiln Operator Name Role Phone Unavailable Primary Care Provider Unavailabl e Encounter Details Date Type Department Care Team (Late st Contact Info) Description 08/23/2016 [place] [address] , Generic Conversion, Social History Tobacco Use [...] GLUCOSE - MCCORMICK DOCKED DEVICE Routine 08/23/2016 9:50 AM CDT documented in this encounter Results * (ABNORMAL) POCT glucose (08/23/2016 9:50 AM CDT) GLUCOSE POC 121(H) 70 - 109 08/23/2016 8:52 AM CDT [facility] ORDERS INTERFACE WHOLE BLOOD SPECIMEN / Unknown 08/23/2016 9:50 AM CDT 08/23/2016 8:52 AM CDT us Generic Conversion Md PASTRANA POCT ORDERABLES - DEVIC E Final Result [facility] ORDERS INTERFACE US documented in this encounter Visit Diagnoses Not on filedocumented in this encounter
--- OUTSIDE RECORDS SUMMARY | 2024-05-10 18:16 | XMS_ITS | Encounter Summary ---
Author Organization [facility] Address [address] [place] [address]. [place] [address] [place] [address] Care Team Providers Care Digital Advertising Analyst Name Role Phone Unavailable Primary Care Provider Unavailabl e Encounter Details Date Type Department Care Team (Late st Contact Info) Description 08/20/2016 Orders [place] [address] , Generic Conversion, Social History Tobacco Use [...] GLUCOSE - MCCORMICK DOCKED DEVICE Routine 08/20/2016 4:49 AM CDT documented in this encounter Results * (ABNORMAL) POCT glucose (08/20/2016 4:49 AM CDT) GLUCOSE POC 144(H) 70 - 109 08/20/2016 3:50 AM CDT [facility] ORDERS INTERFACE WHOLE BLOOD SPECIMEN / Unknown 08/20/2016 4:49 AM CDT 08/20/2016 3:50 AM CDT us Generic Conversion Md PASTRANA POCT ORDERABLES - DEVIC E Final Result [facility] ORDERS INTERFACE US documented in this encounter Visit Diagnoses Not on filedocumented in this encounter
--- OUTSIDE RECORDS SUMMARY | 2024-05-10 18:16 | XMS_ITS | Encounter Summary ---
Author Organization [facility] Address [address] [place] [address]. [place] [address] [place] [address] Care Team Providers Care Hydrochloric Acid Operator Name Role Phone Unavailable Primary Care Provider Unavailabl e Encounter Details Date Type Department Care Team (Late st Contact Info) Description 08/22/2016 Orders Only ANY CONVERSION ONE [place], [place] [id number] , Generic Conversion, Social History Tobacco Use [...] GLUCOSE - MCCORMICK DOCKED DEVICE Routine 08/22/2016 11:26 PM CDT documented in this encounter Results * POCT glucose (08/22/2016 11:26 PM CDT) GLUCOSE POC 91 70 - 109 08/22/2016 10:[address] [facility] ORDERS INTERFACE WHOLE BLOOD SPECIMEN / Unknown 08/22/2016 11:26 PM CDT 08/22/2016 10:32 PM CDT us Generic Conversion Md PASTRANA POCT ORDERABLES - DEVIC E Final Result [facility] ORDERS INTERFACE US documented in this encounter Visit Diagnoses Not on filedocumented in this encounter
--- OUTSIDE RECORDS SUMMARY | 2024-05-10 18:16 | XMS_ITS | Encounter Summary ---
Author Organization [facility] Address [address] [place] [address]. [place] [address] [place] [address] Care Team Providers Care Substance Abuse Services Director Name Role Phone Unavailable Primary Care Provider Unavailabl e Encounter Details Date Type Department Care Team (Late st Contact Info) Description 08/21/2016 Orders Only ANY CONVERSION ONE [place], [place] [id number] , Generic Conversion, Social History Tobacco Use [...] Priority Date/Time Associated Diagnosis Comments MAGNESIUM TIMED 08/21/2016 5:10 AM CDT documented in this encounter Results * (ABNORMAL) MAGNESIUM (08/21/2016 5:10 AM CDT) MAGNESIUM 1.3(L) 1.7 - 2.2 MG/DL 08/21/2016 4:59 AM CDT [facility] SERUM OR PLASMA SPECIMEN / Unknown 08/21/2016 5:10 AM CDT 08/21/2016 4:11 AM CDT us Generic Conversion Md [facility] Final R esult [facility] [address] [place] [address], [id number] documented in this encounter Visit Diagnoses Not on filedocumented in this encounter
--- OUTSIDE RECORDS SUMMARY | 2024-05-10 18:16 | XMS_ITS | Encounter Summary ---
Author Organization [facility] Address [address] [place] [address]. [place] [address] [place] [address] Care Team Providers Care Development Eng Name Role Phone Unavailable Primary Care Provider Unavailabl e Encounter Details Date Type Department Care Team (Late st Contact Info) Description 08/24/2016 Orders Only ANY CONVERSION ONE [place], [place] [id number] , Generic Conversion, Social History Tobacco Use [...] GLUCOSE - MCCORMICK DOCKED DEVICE Routine 08/24/2016 10:44 PM CDT documented in this encounter Results * (ABNORMAL) POCT glucose (08/24/2016 10:44 PM CDT) GLUCOSE POC 44(L) 70 - 109 08/24/2016 9:[address] [facility] ORDERS INTERFACE Comment:Will Repeat Test WHOLE BLOOD SPECIMEN / Unknown 08/24/2016 10:44 PM CDT 08/24/2016 9:48 PM CDT us Generic Conversion Md PASTRANA POCT ORDERABLES - DEVIC E Final Result [facility] ORDERS INTERFACE US documented in this encounter Visit Diagnoses Not on filedocumented in this encounter
--- OUTSIDE RECORDS SUMMARY | 2024-05-10 18:16 | XMS_ITS | Encounter Summary ---
Author Organization [facility] Address [address] [place] [address]. [place] [address] [place] [address] Care Team Providers Care Medical Education Specialist Name Role Phone Unavailable Primary Care Provider Unavailabl e Encounter Details Date Type Department Care Team (Late st Contact Info) Description 08/24/2016 Orders Only [place] [address] , Generic Conversion, Social History Tobacco Use [...] GLUCOSE - MCCORMICK DOCKED DEVICE Routine 08/24/2016 10:56 AM CDT documented in this encounter Results * POCT glucose (08/24/2016 10:56 AM CDT) GLUCOSE POC 93 70 - 109 08/24/2016 9:58 AM CDT [facility] ORDERS INTERFACE WHOLE BLOOD SPECIMEN / Unknown 08/24/2016 10:56 AM CDT 08/24/2016 9:58 AM CDT us Generic Conversion Md PASTRANA POCT ORDERABLES - DEVIC E Final Result [facility] ORDERS INTERFACE US documented in this encounter Visit Diagnoses Not on filedocumented in this encounter
--- OUTSIDE RECORDS SUMMARY | 2024-05-10 18:16 | XMS_ITS | Encounter Summary ---
Author Organization [facility] Address [address] [place] [address]. [place] [address] [place] [address] Care Team Providers Care Desk Lieutenant Name Role Phone Unavailable Primary Care Provider Unavailabl e Encounter Details Date Type Department Care Team (Late st Contact Info) Description 08/23/2016 Orders Only ANY CONVERSION ONE [place], [place] [id number] , Generic Conversion, Social History Tobacco Use [...] Priority Date/Time Associated Diagnosis Comments MAGNESIUM TIMED 08/23/2016 7:06 AM CDT documented in this encounter Results * (ABNORMAL) MAGNESIUM (08/23/2016 7:06 AM CDT) MAGNESIUM 1.5(L) 1.7 - 2.2 MG/DL 08/23/2016 6:38 AM CDT [facility] SERUM OR PLASMA SPECIMEN / Unknown 08/23/2016 7:06 AM CDT 08/23/2016 6:08 AM CDT us Generic Conversion Md [facility] Final R esult [facility] [address] [place] [address], [id number] documented in this encounter Visit Diagnoses Not on filedocumented in this encounter
--- OUTSIDE RECORDS SUMMARY | 2024-05-10 18:16 | XMS_ITS | Encounter Summary ---
Author Organization [facility] Address [address] [place] [address]. [place] [address] [place] [address] Care Team Providers Care Preventative Maintenance Technician Name Role Phone Unavailable Primary Care Provider Unavailabl e Encounter Details Date Type Department Care Team (Late st Contact Info) Description 08/20/2016 Orders [place] [address] , Generic Conversion, Social History [...] Associated Diagnosis Comments BASIC METABOLIC PANEL TIMED 08/20/2016 9:41 PM CDT documented in this encounter Results * (ABNORMAL) BASIC METABOLIC PANEL (08/20/2016 9:41 PM CDT) SODIUM S/P/B 134(L) 135 - 147 MMOL/L 08/20/2016 9:12 PM CDT [facility] POTASSIUM S/P/B 3.8 3.5 - 5.0 MMOL/L 08/20/2016 9:12 PM CDT [facility] CHLORIDE S/P/B 112(H) 98 - 107 MMOL/L 08/20/2016 9:12 PM CDT [facility] CO2 9.9(LL) 22 - 29 MMOL/L 08/20/2016 9:19 PM CDT [facility] Comment:Critical results bety led to and read back by KIKA (RN) @ [id number]. GLUCOSE 133(H) 70 - 109 MG/DL 08/20/2016 9:12 PM CDT [facility] BUN 4(L) 7 - 19 MG/DL 08/20/2016 9:12 PM CDT [facility] CREATININE S/P/B 0.58(L) 0.60 - 1.10 MG/DL 08/20/2016 9:12 PM CDT [facility] CALCIUM S/P/B 8.9 8.4 - 10.2 MG/DL 08/20/2016 9:12 PM CDT [facility] EGFR NON-AFR. AMER. 133 >60 ML/MIN/1.7 3 M2 08/20/2016 9:12 PM CDT [facility] EGFR AFR. AMER. 161 >60 ML/MIN/1.7 3 M2 08/20/2016 9:12 PM CDT [facility] ANION GAP 12.1 MMOL/L 08/20/2016 9:19 PM CDT [facility] OSMOLALITY (CALC) 267 MOSM/KG 08/20/2016 9:12 PM CDT [facility] PLASMA SPECIMEN / Unknown 08/20/2016 9:41 PM CDT 08/20/2016 8:46 PM CDT us Generic Conversion Md [facility] LAB[facility]AT[facility] Final R esult [facility] [address] [place] [address], [id number] documented in this encounter Visit Diagnoses Not on filedocumented in this encounter
--- OUTSIDE RECORDS SUMMARY | 2024-05-10 18:16 | XMS_ITS | Encounter Summary ---
Author Organization [facility] Address [address] [place] [address]. [place] [address] [place] [address] Care Team Providers Care Computer Systems Security Analyst Name Role Phone Unavailable Primary Care Provider Unavailabl e Encounter Details Date Type Department Care Team (Late st Contact Info) Description 08/21/2016 Orders Only ANY CONVERSION ONE [place], [place] [id number] , Generic Conversion, Social History Tobacco Use [...] GLUCOSE - MCCORMICK DOCKED DEVICE Routine 08/21/2016 7:29 AM CDT documented in this encounter Results * (ABNORMAL) POCT glucose (08/21/2016 7:29 AM CDT) GLUCOSE POC 173(H) 70 - 109 08/21/2016 6:40 AM CDT [facility] ORDERS INTERFACE WHOLE BLOOD SPECIMEN / Unknown 08/21/2016 7:29 AM CDT 08/21/2016 6:40 AM CDT us Generic Conversion Md PASTRANA POCT ORDERABLES - DEVIC E Final Result [facility] ORDERS INTERFACE US documented in this encounter Visit Diagnoses Not on filedocumented in this encounter
--- OUTSIDE RECORDS SUMMARY | 2024-05-10 18:16 | XMS_ITS | Encounter Summary ---
Author Organization [facility] Address [address] [place] [address]. [place] [address] [place] [address] Care Team Providers Care Epic Cupid Analyst Name Role Phone Unavailable Primary Care Provider Unavailabl e Encounter Details Date Type Department Care Team (Late st Contact Info) Description 08/20/2016 Orders [place] [address] , Generic Conversion, Social History [...] Diagnosis Comments BASIC METABOLIC PANEL TIMED 08/20/2016 6:03 AM CDT documented in this encounter Results * (ABNORMAL) BASIC METABOLIC PANEL (08/20/2016 6:03 AM CDT) SODIUM S/P/B 134(L) 135 - 147 MMOL/L 08/20/2016 6:25 AM CDT [facility] POTASSIUM S/P/B 4.2 3.5 - 5.0 MMOL/L 08/20/2016 6:25 AM CDT [facility] CHLORIDE S/P/B 112(H) 98 - 107 MMOL/L 08/20/2016 6:25 AM CDT [facility] CO2 13.4(L) 22 - 29 MMOL/L 08/20/2016 6:25 AM CDT [facility] GLUCOSE 125(H) 70 - 109 MG/DL 08/20/2016 6:25 AM CDT [facility] BUN 3(L) 7 - 19 MG/DL 08/20/2016 6:25 AM CDT [facility] CREATININE S/P/B 0.54(L) 0.60 - 1.10 MG/DL 08/20/2016 6:25 AM CDT [facility] CALCIUM S/P/B 8.8 8.4 - 10.2 MG/DL 08/20/2016 6:25 AM CDT [facility] EGFR NON-AFR. AMER. 144 >60 ML/MIN/1.7 3 M2 08/20/2016 6:25 AM CDT [facility] EGFR AFR. AMER. 174 >60 ML/MIN/1.7 3 M2 08/20/2016 6:25 AM CDT [facility] ANION GAP 8.6 MMOL/L 08/20/2016 6:25 AM CDT [facility] OSMOLALITY (CALC) 266 MOSM/KG 08/20/2016 6:25 AM CDT [facility] PLASMA SPECIMEN / Unknown 08/20/2016 6:03 AM CDT 08/20/2016 5:37 AM CDT us Generic Conversion Md [facility] Final R esult [facility] [address] [place] [address], [id number] documented in this encounter Visit Diagnoses Not on filedocumented in this encounter
--- OUTSIDE RECORDS SUMMARY | 2024-05-10 18:16 | XMS_ITS | Encounter Summary ---
Author Organization [facility] Address [address] [place] [address]. [place] [address] [place] [address] Care Team Providers Care Unit Director Name Role Phone Unavailable Primary Care Provider Unavailabl e Encounter Details Date Type Department Care Team (Late st Contact Info) Description 08/21/2016 Orders Only [place] [address] , Generic Conversion, Social History [...] Diagnosis Comments BASIC METABOLIC PANEL TIMED 08/21/2016 1:50 PM CDT documented in this encounter Results * (ABNORMAL) BASIC METABOLIC PANEL (08/21/2016 1:50 PM CDT) SODIUM S/P/B 134(L) 135 - 147 MMOL/L 08/21/2016 1:14 PM CDT [facility] POTASSIUM S/P/B 4.4 3.5 - 5.0 MMOL/L 08/21/2016 1:14 PM CDT [facility] CHLORIDE S/P/B 108(H) 98 - 107 MMOL/L 08/21/2016 1:14 PM CDT [facility] CO2 14.3(L) 22 - 29 MMOL/L 08/21/2016 1:14 PM CDT [facility] GLUCOSE 122(H) 70 - 109 MG/DL 08/21/2016 1:14 PM CDT [facility] BUN 5(L) 7 - 19 MG/DL 08/21/2016 1:14 PM CDT [facility] CREATININE S/P/B 0.61 0.60 - 1.10 MG/DL 08/21/2016 1:14 PM CDT [facility] CALCIUM S/P/B 9.3 8.4 - 10.2 MG/DL 08/21/2016 1:14 PM CDT [facility] EGFR NON-AFR. AMER. 125 >60 ML/MIN/1.7 3 M2 08/21/2016 1:14 PM CDT [facility] EGFR AFR. AMER. 152 >60 ML/MIN/1.7 3 M2 08/21/2016 1:14 PM CDT [facility] ANION GAP 11.7 MMOL/L 08/21/2016 1:14 PM CDT [facility] OSMOLALITY (CALC) 267 MOSM/KG 08/21/2016 1:14 PM CDT [facility] PLASMA SPECIMEN / Unknown 08/21/2016 1:50 PM CDT 08/21/2016 12:51 PM CDT us Generic Conversion Md [facility] Final R esult [facility] [address] [place] [address], [id number] documented in this encounter Visit Diagnoses Not on filedocumented in this encounter
--- OUTSIDE RECORDS SUMMARY | 2024-05-10 18:16 | XMS_ITS | Encounter Summary ---
Author Organization [facility] Address [address] [place] [address]. [place] [address] [place] [address] Care Team Providers Care Director Of Casino Marketing Name Role Phone Unavailable Primary Care Provider Unavailabl e Encounter Details Date Type Department Care Team (Late st Contact Info) Description 08/21/2016 Orders [place] [address] , Generic Conversion, Social History Tobacco Use [...] GLUCOSE - MCCORMICK DOCKED DEVICE Routine 08/21/2016 4:07 PM CDT documented in this encounter Results * (ABNORMAL) POCT glucose (08/21/2016 4:07 PM CDT) GLUCOSE POC 116(H) 70 - 109 08/21/2016 3:09 PM CDT [facility] ORDERS INTERFACE Comment:RN Notified WHOLE BLOOD SPECIMEN / Unknown 08/21/2016 4:07 PM CDT 08/21/2016 3:09 PM CDT us Generic Conversion Md PASTRANA POCT ORDERABLES - DEVIC E Final Result [facility] ORDERS INTERFACE US documented in this encounter Visit Diagnoses Not on filedocumented in this encounter
--- OUTSIDE RECORDS SUMMARY | 2024-05-10 18:16 | XMS_ITS | Encounter Summary ---
Author Organization [facility] Address [address] [place] [address]. [place] [address] [place] [address] Care Team Providers Care Books Binder Name Role Phone Unavailable Primary Care Provider Unavailabl e Encounter Details Date Type Department Care Team (Late st Contact Info) Description 08/23/2016 Orders Only ANY CONVERSION ONE [place], [place] [id number] , Generic Conversion, Social History Tobacco Use [...] GLUCOSE - MCCORMICK DOCKED DEVICE Routine 08/23/2016 10:57 PM CDT documented in this encounter Results * (ABNORMAL) POCT glucose (08/23/2016 10:57 PM CDT) GLUCOSE POC 131(H) 70 - 109 08/23/2016 10:15 PM CDT [facility] ORDERS INTERFACE WHOLE BLOOD SPECIMEN / Unknown 08/23/2016 10:57 PM CDT 08/23/2016 10:15 PM CDT us Generic Conversion Md PASTRANA POCT ORDERABLES - DEVIC E Final Result [facility] ORDERS INTERFACE US documented in this encounter Visit Diagnoses Not on filedocumented in this encounter
--- OUTSIDE RECORDS SUMMARY | 2024-05-10 18:16 | XMS_ITS | Encounter Summary ---
Author Organization [facility] - [facility] Address [address] [place] [address]. [place] [address] [place] [address] Care Team Providers Care Orthodontist Name Role Phone Unavailable Primary Care Provider Unavailabl e Encounter Details Date Type Department Care Team (Late st Contact Info) Description 08/22/2016 Orders Only [place] [address] , Generic Conversion, Social History Tobacco Use [...] GLUCOSE - MCCORMICK DOCKED DEVICE Routine 08/22/2016 3:03 AM CDT documented in this encounter Results * (ABNORMAL) POCT glucose (08/22/2016 3:03 AM CDT) GLUCOSE POC 133(H) 70 - 109 08/22/2016 2:05 AM CDT [facility] LAB ORDERS INTERFACE WHOLE BLOOD SPECIMEN / Unknown 08/22/2016 3:03 AM CDT 08/22/2016 2:05 AM CDT us Generic Conversion Md PASTRANA POCT ORDERABLES - DEVIC E Final Result [facility] ORDERS INTERFACE US documented in this encounter Visit Diagnoses Not on filedocumented in this encounter
--- OUTSIDE RECORDS SUMMARY | 2024-05-10 18:16 | XMS_ITS | Encounter Summary ---
Author Organization [facility] - [facility] Address [address] [place] [address]. [place] [address] [place] [address] Care Team Providers Care Ice Carver Name Role Phone Unavailable Primary Care Provider Unavailabl e Encounter Details Date Type Department Care Team (Late st Contact Info) Description 08/21/2016 Orders Only ANY CONVERSION ONE [place], [place] [id number] , Generic Conversion, Social History Tobacco Use [...] GLUCOSE - MCCORMICK DOCKED DEVICE Routine 08/21/2016 1:41 PM CDT documented in this encounter Results * POCT glucose (08/21/2016 1:41 PM CDT) GLUCOSE POC 107 70 - 109 08/21/2016 12:46 PM CDT [facility] LAB ORDERS INTERFACE WHOLE BLOOD SPECIMEN / Unknown 08/21/2016 1:41 PM CDT 08/21/2016 12:46 PM CDT us Generic Conversion Md PASTRANA POCT ORDERABLES - DEVIC E Final Result [facility] LAB ORDERS INTERFACE US documented in this encounter Visit Diagnoses Not on filedocumented in this encounter
--- OUTSIDE RECORDS SUMMARY | 2024-05-10 18:16 | XMS_ITS | Encounter Summary ---
Author Organization [facility] Address [address] [place] [address]. [place] [address] [place] [address] Care Team Providers Care Paint Pourer Name Role Phone Unavailable Primary Care Provider Unavailabl e Encounter Details Date Type Department Care Team (Late st Contact Info) Description 08/23/2016 Orders [place] [address] , Generic Conversion, Social History Tobacco Use [...] GLUCOSE - MCCORMICK DOCKED DEVICE Routine 08/23/2016 3:55 AM CDT documented in this encounter Results * POCT glucose (08/23/2016 3:55 AM CDT) GLUCOSE POC 80 70 - 109 08/23/2016 2:56 AM CDT [facility] INTERFACE WHOLE BLOOD SPECIMEN / Unknown 08/23/2016 3:55 AM CDT 08/23/2016 2:56 AM CDT us Generic Conversion Md PASTRANA POCT ORDERABLES - DEVIC E Final Result [facility] ORDERS INTERFACE US documented in this encounter Visit Diagnoses Not on filedocumented in this encounter
--- OUTSIDE RECORDS SUMMARY | 2024-05-10 18:16 | XMS_ITS | Encounter Summary ---
Author Organization [facility] - [facility] Address [address] [place] [address]. [place] [address] [place] [address] Care Team Providers Care Beamer Hand Name Role Phone Unavailable Primary Care Provider Unavailabl e Encounter Details Date Type Department Care Team (Late st Contact Info) Description 08/22/2016 Orders Only ANY CONVERSION ONE [place], [place] [id number] , Generic Conversion, Social History Tobacco Use [...] GLUCOSE - MCCORMICK DOCKED DEVICE Routine 08/22/2016 12:17 PM CDT documented in this encounter Results * POCT glucose (08/22/2016 12:17 PM CDT) GLUCOSE POC 85 70 - 109 08/22/2016 11:33 AM CDT [facility] LAB ORDERS INTERFACE WHOLE BLOOD SPECIMEN / Unknown 08/22/2016 12:17 PM CDT 08/22/2016 11:33 AM CDT us Generic Conversion Md PASTRANA POCT ORDERABLES - DEVIC E Final Result [facility] LAB ORDERS INTERFACE US documented in this encounter Visit Diagnoses Not on filedocumented in this encounter
--- OUTSIDE RECORDS SUMMARY | 2024-05-10 18:16 | XMS_ITS | Encounter Summary ---
Author Organization [facility] - [facility] Address [address] [place] [address]. [place] [address] [place] [address] Care Team Providers Care Seed Cone Picker Name Role Phone Unavailable Primary Care Provider Unavailabl e Encounter Details Date Type Department Care Team (Late st Contact Info) Description 08/21/2016 Orders [place] [address] , Generic Conversion, Social History Tobacco Use [...] GLUCOSE - MCCORMICK DOCKED DEVICE Routine 08/21/2016 4:40 AM CDT documented in this encounter Results * (ABNORMAL) POCT glucose (08/21/2016 4:40 AM CDT) GLUCOSE POC 140(H) 70 - 109 08/21/2016 3:44 AM CDT [facility] LAB ORDERS INTERFACE WHOLE BLOOD SPECIMEN / Unknown 08/21/2016 4:40 AM CDT 08/21/2016 3:44 AM CDT us Generic Conversion Md PASTRANA POCT ORDERABLES - DEVIC E Final Result [facility] LAB ORDERS INTERFACE US documented in this encounter Visit Diagnoses Not on filedocumented in this encounter
--- OUTSIDE RECORDS SUMMARY | 2024-05-10 18:16 | XMS_ITS | Encounter Summary ---
Author Organization [facility] - [facility] Address [address] [place] [address]. [place] [address] [place] [address] Care Team Providers Care Cullet Crusher And Washer Name Role Phone Unavailable Primary Care Provider Unavailabl e Encounter Details Date Type Department Care Team (Late st Contact Info) Description 08/22/2016 Orders Only ANY CONVERSION ONE [place], [place] [id number] , Generic Conversion, Social History Tobacco Use [...] GLUCOSE - MCCORMICK DOCKED DEVICE Routine 08/22/2016 6:32 PM CDT documented in this encounter Results * POCT glucose (08/22/2016 6:32 PM CDT) GLUCOSE POC 89 70 - 109 08/22/2016 5:38 PM CDT [facility] LAB ORDERS INTERFACE Comment:RN Notified WHOLE BLOOD SPECIMEN / Unknown 08/22/2016 6:32 PM CDT 08/22/2016 5:38 PM CDT us Generic Conversion Md PASTRANA POCT ORDERABLES - DEVIC E Final Result [facility] LAB ORDERS INTERFACE US documented in this encounter Visit Diagnoses Not on filedocumented in this encounter
--- OUTSIDE RECORDS SUMMARY | 2024-05-10 18:16 | XMS_ITS | Encounter Summary ---
Author Organization [facility] Address [address] [place] [address]. [place] [address] [place] [address] Care Team Providers Care Linen Worker Name Role Phone Unavailable Primary Care Provider Unavailabl e Encounter Details Date Type Department Care Team (Late st Contact Info) Description 08/21/2016 Orders Only [place] [address] , Generic Conversion, Social History [...] Diagnosis Comments BASIC METABOLIC PANEL TIMED 08/21/2016 9:10 PM CDT documented in this encounter Results * (ABNORMAL) BASIC METABOLIC PANEL (08/21/2016 9:10 PM CDT) SODIUM S/P/B 133(L) 135 - 147 MMOL/L 08/21/2016 8:43 PM CDT [facility] POTASSIUM S/P/B 3.5 3.5 - 5.0 MMOL/L 08/21/2016 8:43 PM CDT [facility] CHLORIDE S/P/B 109(H) 98 - 107 MMOL/L 08/21/2016 8:43 PM CDT [facility] CO2 12.1(L) 22 - 29 MMOL/L 08/21/2016 8:43 PM CDT [facility] GLUCOSE 126(H) 70 - 109 MG/DL 08/21/2016 8:43 PM CDT [facility] BUN 5(L) 7 - 19 MG/DL 08/21/2016 8:43 PM CDT [facility] CREATININE S/P/B 0.56(L) 0.60 - 1.10 MG/DL 08/21/2016 8:43 PM CDT [facility] CALCIUM S/P/B 8.8 8.4 - 10.2 MG/DL 08/21/2016 8:43 PM CDT [facility] EGFR NON-AFR. AMER. 138 >60 ML/MIN/1.7 3 M2 08/21/2016 8:43 PM CDT [facility] EGFR AFR. AMER. 167 >60 ML/MIN/1.7 3 M2 08/21/2016 8:43 PM CDT [facility] ANION GAP 11.9 MMOL/L 08/21/2016 8:43 PM CDT [facility] OSMOLALITY (CALC) 265 MOSM/KG 08/21/2016 8:43 PM CDT [facility] PLASMA SPECIMEN / Unknown 08/21/2016 9:10 PM CDT 08/21/2016 8:17 PM CDT us Generic Conversion Md [facility] Final R esult [facility] [address] [place] [address], [id number] documented in this encounter Visit Diagnoses Not on filedocumented in this encounter
--- OUTSIDE RECORDS SUMMARY | 2024-05-10 18:16 | XMS_ITS | Encounter Summary ---
Author Organization [facility] - [facility] Address [address] [place] [address]. [place] [address] [place] [address] Care Team Providers Care Pickling Tank Operator Name Role Phone Unavailable Primary Care Provider Unavailabl e Encounter Details Date Type Department Care Team (Late st Contact Info) Description 08/24/2016 Orders Only ANY CONVERSION ONE [place], [place] [id number] , Generic Conversion, Social History Tobacco Use [...] GLUCOSE - MCCORMICK DOCKED DEVICE Routine 08/24/2016 2:05 AM CDT documented in this encounter Results * (ABNORMAL) POCT glucose (08/24/2016 2:05 AM CDT) GLUCOSE POC 130(H) 70 - 109 08/24/2016 1:53 AM CDT [facility] LAB ORDERS INTERFACE WHOLE BLOOD SPECIMEN / Unknown 08/24/2016 2:05 AM CDT 08/24/2016 1:53 AM CDT us Generic Conversion Md PASTRANA POCT ORDERABLES - DEVIC E Final Result [facility] LAB ORDERS INTERFACE US documented in this encounter Visit Diagnoses Not on filedocumented in this encounter
--- OUTSIDE RECORDS SUMMARY | 2024-05-10 18:16 | XMS_ITS | Encounter Summary ---
Author Organization [facility] Address [address] [place] [address]. [place] [address] [place] [address] Care Team Providers Care Advisory Software Engineer Name Role Phone Unavailable Primary Care Provider Unavailabl e Encounter Details Date Type Department Care Team (Late st Contact Info) Description 08/23/2016 Orders Only ANY CONVERSION ONE [place], [place] [id number] , Generic Conversion, Social History Tobacco Use [...] GLUCOSE - MCCORMICK DOCKED DEVICE Routine 08/23/2016 8:09 PM CDT documented in this encounter Results * (ABNORMAL) POCT glucose (08/23/2016 8:09 PM CDT) GLUCOSE POC 132(H) 70 - 109 08/23/2016 7:11 PM CDT [facility] LAB ORDERS INTERFACE WHOLE BLOOD SPECIMEN / Unknown 08/23/2016 8:09 PM CDT 08/23/2016 7:11 PM CDT us Generic Conversion Md PASTRANA POCT ORDERABLES - DEVIC E Final Result [facility] LAB ORDERS INTERFACE US documented in this encounter Visit Diagnoses Not on filedocumented in this encounter
--- OUTSIDE RECORDS SUMMARY | 2024-05-10 18:16 | XMS_ITS | Encounter Summary ---
Author Organization [facility] - [facility] Address [address] [place] [address]. [place] [address] [place] [address] Care Team Providers Care Diet Tech Name Role Phone Unavailable Primary Care Provider Unavailabl e Encounter Details Date Type Department Care Team (Late st Contact Info) Description 08/21/2016 Orders [place] [address] , Generic Conversion, Social History Tobacco Use [...] GLUCOSE - MCCORMICK DOCKED DEVICE Routine 08/21/2016 1:46 AM CDT documented in this encounter Results * (ABNORMAL) POCT glucose (08/21/2016 1:46 AM CDT) GLUCOSE POC 127(H) 70 - 109 08/21/2016 12:58 AM CDT [facility] LAB ORDERS INTERFACE WHOLE BLOOD SPECIMEN / Unknown 08/21/2016 1:46 AM CDT 08/21/2016 12:58 AM CDT us Generic Conversion Md PASTRANA POCT ORDERABLES - DEVIC E Final Result [facility] LAB ORDERS INTERFACE US documented in this encounter Visit Diagnoses Not on filedocumented in this encounter
--- OUTSIDE RECORDS SUMMARY | 2024-05-10 18:16 | XMS_ITS | Encounter Summary ---
Author Organization [facility] - [facility] Address [address] [place] [address]. [place] [address] [place] [address] Care Team Providers Care Costume Draper Name Role Phone Unavailable Primary Care Provider Unavailabl e Encounter Details Date Type Department Care Team (Late st Contact Info) Description 08/20/2016 Orders Only ANY CONVERSION ONE [place], [place] [id number] , Generic Conversion, Social History Tobacco Use [...] GLUCOSE - MCCORMICK DOCKED DEVICE Routine 08/20/2016 10:00 PM CDT documented in this encounter Results * (ABNORMAL) POCT glucose (08/20/2016 10:00 PM CDT) GLUCOSE POC 122(H) 70 - 109 08/20/2016 9:03 PM CDT [facility] LAB ORDERS INTERFACE WHOLE BLOOD SPECIMEN / Unknown 08/20/2016 10:00 PM CDT 08/20/2016 9:03 PM CDT us Generic Conversion Md PASTRANA POCT ORDERABLES - DEVIC E Final Result [facility] LAB ORDERS INTERFACE US documented in this encounter Visit Diagnoses Not on filedocumented in this encounter
--- OUTSIDE RECORDS SUMMARY | 2024-05-10 18:16 | XMS_ITS | Encounter Summary ---
Author Organization [facility] Address [address] [place] [address]. [place] [address] [place] [address] Care Team Providers Care Mutual Fund Sales Agent Name Role Phone Unavailable Primary Care Provider Unavailabl e Encounter Details Date Type Department Care Team (Late st Contact Info) Description 08/21/2016 Orders [place] [address] , Generic Conversion, Social History [...] Date/Time Associated Diagnosis Comments COMPREHENSIVE METABOLIC PANEL STAT 08/21/2016 8:40 AM CDT documented in this encounter Results * (ABNORMAL) COMPREHENSIVE METABOLIC PANEL (08/21/2016 8:40 AM CDT) SODIUM S/P/B 131(L) 135 - 147 MMOL/L 08/21/2016 8:35 AM CDT [facility] POTASSIUM S/P/B 4.1 3.5 - 5.0 MMOL/L 08/21/2016 8:35 AM CDT [facility] CHLORIDE S/P/B 109(H) 98 - 107 MMOL/L 08/21/2016 8:35 AM CDT [facility] CO2 12.3(L) 22 - 29 MMOL/L 08/21/2016 8:35 AM T [facility] GLUCOSE 175(H) 70 - 109 MG/DL 08/21/2016 8:35 AM [facility] BUN 6(L) 7 - 19 MG/DL 08/21/2016 8:35 AM T [facility] CREATININE S/P/B 0.61 0.60 - 1.10 MG/DL 08/21/2016 8:35 AM T [facility] CALCIUM S/P/B 8.8 8.4 - 10.2 MG/DL 08/21/2016 8:35 AM T [facility] BILIRUBIN TOTAL S/P/B 0.5 0.2 - 1.2 MG/DL 08/21/2016 8:35 AM [facility] ALKALINE PHOSPHATASE S/P/B 71 52 - 144 U/L 08/21/2016 8:35 AM T [facility] AST 10 5 - 35 U/L 08/21/2016 8:35 AM [facility] ALT <6 0 - 55 U/L 08/21/2016 8:44 AM [facility] TOTAL PROTEIN S/P/B 5.9(L) 6.0 - 8.3 G/DL 08/21/2016 8:35 AM [facility] ALBUMIN S/P/B 3.1(L) 3.4 - 4.9 G/DL 08/21/2016 8:35 AM T [facility] ANION GAP 9.7 MMOL/L 08/21/2016 8:35 AM T [facility] OSMOLALITY (CALC) 265 MOSM/KG 08/21/2016 8:35 AM T [facility] EGFR NON-AFR. AMER. 125 >60 ML/MIN/1.7 3 M2 08/21/2016 8:35 AM T [facility] EGFR AFR. AMER. 152 >60 ML/MIN/1.7 3 M2 08/21/2016 8:35 AM CDT [facility] PLASMA SPECIMEN / Unknown 08/21/2016 8:40 AM CDT 08/21/2016 7:41 AM CDT us Generic Conversion Md [facility] Final R esult [facility] [address] [place] [address], [id number] documented in this encounter Visit Diagnoses Not on filedocumented in this encounter
--- OUTSIDE RECORDS SUMMARY | 2024-05-10 18:16 | XMS_ITS | Encounter Summary ---
Author Organization [facility] Address [address] [place] [address]. [place] [address] [place] [address] Care Team Providers Care Shear Operator Automatic Name Role Phone Unavailable Primary Care Provider Unavailabl e Encounter Details Date Type Department Care Team (Latest Contact Info) Description 08/19/2016 Abstract [facility] Medical Group Social History [...]
--- OUTSIDE RECORDS SUMMARY | 2024-05-10 18:16 | XMS_ITS | Encounter Summary ---
Author Organization [facility] - [facility] Address [address] [place] [address]. [place] [address] [place] [address] Care Team Providers Care Performance Manager Name Role Phone Unavailable Primary Care Provider Unavailabl e Encounter Details Date Type Department Care Team (Late st Contact Info) Description 08/22/2016 Orders Only ANY CONVERSION ONE [place], [place] [id number] , Generic Conversion, Social History Tobacco Use [...] GLUCOSE - MCCORMICK DOCKED DEVICE Routine 08/22/2016 12:39 PM CDT documented in this encounter Results * POCT glucose (08/22/2016 12:39 PM CDT) GLUCOSE POC 87 70 - 109 08/22/2016 11:46 AM CDT [facility] LAB ORDERS INTERFACE Comment:RN Notified WHOLE BLOOD SPECIMEN / Unknown 08/22/2016 12:39 PM CDT 08/22/2016 11:46 AM CDT us Generic Conversion Md PASTRANA POCT ORDERABLES - DEVIC E Final Result [facility] LAB ORDERS INTERFACE US documented in this encounter Visit Diagnoses Not on filedocumented in this encounter
--- OUTSIDE RECORDS SUMMARY | 2024-05-10 18:16 | XMS_ITS | Encounter Summary ---
Author Organization [facility] - [facility] Address [address] [place] [address]. [place] [address] [place] [address] Care Team Providers Care Cafe Attendant Name Role Phone Unavailable Primary Care Provider Unavailabl e Encounter Details Date Type Department Care Team (Late st Contact Info) Description 08/20/2016 Orders Only ANY CONVERSION ONE [place], [place] [id number] , Generic Conversion, Social History Tobacco Use [...] GLUCOSE - MCCORMICK DOCKED DEVICE Routine 08/20/2016 8:20 AM CDT documented in this encounter Results * (ABNORMAL) POCT glucose (08/20/2016 8:20 AM CDT) GLUCOSE POC 161(H) 70 - 109 08/20/2016 7:22 AM CDT [facility] LAB ORDERS INTERFACE WHOLE BLOOD SPECIMEN / Unknown 08/20/2016 8:20 AM CDT 08/20/2016 7:22 AM CDT us Generic Conversion Md PASTRANA POCT ORDERABLES - DEVIC E Final Result [facility] LAB ORDERS INTERFACE US documented in this encounter Visit Diagnoses Not on filedocumented in this encounter
--- OUTSIDE RECORDS SUMMARY | 2024-05-10 18:16 | XMS_ITS | Encounter Summary ---
Author Organization [facility] Address [address] [place] [address]. [place] [address] [place] [address] Care Team Providers Care Group Therapist Name Role Phone Unavailable Primary Care Provider Unavailabl e Encounter Details Date Type Department Care Team (Late st Contact Info) Description 08/22/2016 Orders Only [place] [address] , Generic Conversion, Social History [...] Diagnosis Comments BASIC METABOLIC PANEL TIMED 08/22/2016 9:14 PM CDT documented in this encounter Results * (ABNORMAL) BASIC METABOLIC PANEL (08/22/2016 9:14 PM CDT) SODIUM S/P/B 137 135 - 147 MMOL/L 08/22/2016 8:44 PM CDT [facility] POTASSIUM S/P/B 3.7 3.5 - 5.0 MMOL/L 08/22/2016 8:44 PM CDT [facility] CHLORIDE S/P/B 112(H) 98 - 107 MMOL/L 08/22/2016 8:44 PM CDT [facility] CO2 17.5(L) 22 - 29 MMOL/L 08/22/2016 8:44 PM CDT [facility] GLUCOSE 108 70 - 109 MG/DL 08/22/2016 8:44 PM CDT [facility] BUN 5(L) 7 - 19 MG/DL 08/22/2016 8:44 PM CDT [facility] CREATININE S/P/B 0.54(L) 0.60 - 1.10 MG/DL 08/22/2016 8:44 PM CDT [facility] CALCIUM S/P/B 8.2(L) 8.4 - 10.2 MG/DL 08/22/2016 8:44 PM CDT [facility] EGFR NON-AFR. AMER. 144 >60 ML/MIN/1.7 3 M2 08/22/2016 8:44 PM CDT [facility] EGFR AFR. AMER. 174 >60 ML/MIN/1.7 3 M2 08/22/2016 8:44 PM CDT [facility] ANION GAP 7.5 MMOL/L 08/22/2016 8:44 PM CDT [facility] OSMOLALITY (CALC) 272 MOSM/KG 08/22/2016 8:44 PM CDT [facility] PLASMA SPECIMEN / Unknown 08/22/2016 9:14 PM CDT 08/22/2016 8:21 PM CDT us Generic Conversion Md [facility] Final R esult [facility] [address] [place] [address], [id number] documented in this encounter Visit Diagnoses Not on filedocumented in this encounter
--- OUTSIDE RECORDS SUMMARY | 2024-05-10 18:16 | XMS_ITS | Encounter Summary ---
Author Organization [facility] - [facility] Address [address] [place] [address]. [place] [address] [place] [address] Care Team Providers Care Tool Setter Apprentice Name Role Phone Unavailable Primary Care Provider Unavailabl e Encounter Details Date Type Department Care Team (Late st Contact Info) Description 08/23/2016 Orders Only ANY CONVERSION ONE [place], [place] [id number] , Generic Conversion, Social History Tobacco Use [...] GLUCOSE - MCCORMICK DOCKED DEVICE Routine 08/23/2016 1:48 PM CDT documented in this encounter Results * (ABNORMAL) POCT glucose (08/23/2016 1:48 PM CDT) GLUCOSE POC 112(H) 70 - 109 08/23/2016 12:50 PM CDT [facility] ORDERS INTERFACE WHOLE BLOOD SPECIMEN / Unknown 08/23/2016 1:48 PM CDT 08/23/2016 12:50 PM CDT us Generic Conversion Md PASTRANA POCT ORDERABLES - DEVIC E Final Result [facility] ORDERS INTERFACE US documented in this encounter Visit Diagnoses Not on filedocumented in this encounter
--- OUTSIDE RECORDS SUMMARY | 2024-05-10 18:16 | XMS_ITS | Encounter Summary ---
Author Organization [facility] - [facility] Address [address] [place] [address]. [place] [address] [place] [address] Care Team Providers Care Hydrologic Modeler Name Role Phone Unavailable Primary Care Provider Unavailabl e Encounter Details Date Type Department Care Team (Late st Contact Info) Description 08/22/2016 Orders Only ANY CONVERSION ONE [place], [place] [id number] , Generic Conversion, Social History Tobacco Use [...] GLUCOSE - MCCORMICK DOCKED DEVICE Routine 08/22/2016 7:28 PM CDT documented in this encounter Results * (ABNORMAL) POCT glucose (08/22/2016 7:28 PM CDT) GLUCOSE POC 114(H) 70 - 109 08/22/2016 6:31 PM CDT [facility] LAB ORDERS INTERFACE WHOLE BLOOD SPECIMEN / Unknown 08/22/2016 7:28 PM CDT 08/22/2016 6:31 PM CDT us Generic Conversion Md PASTRANA POCT ORDERABLES - DEVIC E Final Result [facility] ORDERS INTERFACE US documented in this encounter Visit Diagnoses Not on filedocumented in this encounter
--- OUTSIDE RECORDS SUMMARY | 2024-05-10 18:16 | XMS_ITS | Encounter Summary ---
Author Organization [facility] Address [address] [place] [address]. [place] [address] [place] [address] Care Team Providers Care Handle Rounder Operator Name Role Phone Unavailable Primary Care Provider Unavailabl e Encounter Details Date Type Department Care Team (Late st Contact Info) Description 08/23/2016 Orders [place] [address] , Generic Conversion, Social History [...] Procedure Name Priority Date/Time Associated Diagnosis Comments HEMOGLOBIN, GLYCOSYLATED Routine 08/23/2016 7:06 AM CDT documented in this encounter Results * (ABNORMAL) HEMOGLOBIN, GLYCOSYLATED (08/23/2016 7:06 AM CDT) HGB A1C 8.4(H) 4.5 - 6.0 % 08/23/2016 6:42 AM CDT [facility] ESTIMATED AVG GLUCOSE 194 MG/DL 08/23/2016 6:42 AM CDT [facility] 08/23/2016 7:06 AM CDT 08/23/2016 6:08 AM CDT us Generic Conversion Md [facility] Final R esult [facility] [address] [place] [address], [place] [phone] [id number] documented in this encounter Visit Diagnoses Not on filedocumented in this encounter
--- OUTSIDE RECORDS SUMMARY | 2024-05-10 18:17 | XMS_ITS | Encounter Summary ---
Author Organization [facility] Address [address] [place] [address]. [place] [address] [place] [address] Care Team Providers Care Dominatrix Name Role Phone Unavailable Primary Care Provider Unavailabl e Encounter Details Date Type Department Care Team (Late st Contact Info) Description 07/21/2016 Orders [place] [address] , Generic Conversion, Social History [...] Associated Diagnosis Comments CBC W/DIFF AUTOMATED STAT 07/21/2016 3:49 AM CDT documented in this encounter Results * (ABNORMAL) CBC W/DIFF AUTOMATED (07/21/2016 3:49 AM CDT) WBC 14.0(H) 4.0 - 10.8 x10'3/uL 07/21/2016 3:07 AM CDT [facility] RBC 4.33 4.10 - 5.40 x10'6/uL 07/21/2016 3:07 AM CDT [facility] HGB 13.6 12.0 - 16.0 G/DL 07/21/2016 3:07 AM CDT [facility] HCT 36.6 36.0 - 47.0 % 07/21/2016 3:07 AM CDT [facility] MCV 84.5 78.0 - 100.0 FL 07/21/2016 3:07 AM CDT [facility] MCH 31.4(H) 27.0 - 31.0 PG 07/21/2016 3:07 AM CDT [facility] MCHC 37.2(H) 33.0 - 36.0 G/DL 07/21/2016 3:07 AM CDT [facility] RDW 11.9 11.5 - 14.5 % 07/21/2016 3:07 AM CDT [facility] PLT 319 150 - 350 x10'3/uL 07/21/2016 3:07 AM CDT [facility] MPV 9.0 7.4 - 10.4 FL 07/21/2016 3:07 AM CDT [facility] ABS. NEUTROPHILS TOTAL 11.87(H) 1.60 - 8.30 x10'3/uL 07/21/2016 3:07 AM CDT [facility] ABS. LYMPHOCYTES 1.33 0.80 - 4.70 x10'3/uL 07/21/2016 3:07 AM CDT [facility] ABS. MONOCYTES 0.61 0.00 - 1.50 x10'3/uL 07/21/2016 3:07 AM CDT [facility] ABS. EOSINOPHILS 0.00 0.00 - 0.40 x10'3/uL 07/21/2016 3:07 AM CDT [facility] ABS. BASOPHILS 0.03 0.00 - 0.20 x10'3/uL 07/21/2016 3:07 AM CDT [facility] ABS. IMMATURE GRANULOCYTES 0.16(H) 0.00 - 0.03 x10'3/uL 07/21/2016 3:07 AM CDT [facility] ABS. NUCLEATED RBC'S 0.00 0.0 x10'3/uL 07/21/2016 3:07 AM CDT [facility] PLASMA SPECIMEN / Unknown 07/21/2016 3:49 AM CDT 07/21/2016 2:54 AM CDT us Generic Conversion Md [facility] Final R esult Performing Organization Address City/State/[facility] Co de Phone Number [facility] [address] [place] [address], [place] [phone] [id number] documented in this encounter Visit Diagnoses Not on filedocumented in this encounter
--- OUTSIDE RECORDS SUMMARY | 2024-05-10 18:17 | XMS_ITS | Encounter Summary ---
Author Organization [facility] Address [address] [place] [address]. [place] [address] [place] [address] Care Team Providers Care Energy Sales Consultant Name Role Phone Unavailable Primary Care Provider Unavailabl e Encounter Details Date Type Department Care Team (Late st Contact Info) Description 08/19/2016 Orders Only ANY CONVERSION ONE [place], [place] [id number] , Generic Conversion, Social History Tobacco Use [...] POCT GLUCOSE - MCCORMICK DOCKED DEVICE Routine 08/19/2016 9:49 PM CDT documented in this encounter Results * (ABNORMAL) POCT glucose (08/19/2016 9:49 PM CDT) GLUCOSE POC 143(H) 70 - 109 08/19/2016 9:09 PM CDT [facility] ORDERS INTERFACE WHOLE BLOOD SPECIMEN / Unknown 08/19/2016 9:49 PM CDT 08/19/2016 9:08 PM CDT us Generic Conversion Md [facility] POCT ORDERABLES - DEVIC E Final Result [facility] ORDERS INTERFACE US documented in this encounter Visit Diagnoses Not on filedocumented in this encounter
--- OUTSIDE RECORDS SUMMARY | 2024-05-10 18:17 | XMS_ITS | Encounter Summary ---
Author Organization [facility] Address [address] [place] [address]. [id number] Care Team Providers Care Pelt Inspector Name Role Phone Unavailable Primary Care Provider Unavailabl e Encounter Details Date Type Department Care Team (Late st Contact Info) Description 07/22/2016 Orders Only ANY CONVERSION ONE [place], [place] [id number] , Generic Conversion, Social History Tobacco Use [...] POCT GLUCOSE - MCCORMICK DOCKED DEVICE Routine 07/22/2016 2:12 AM CDT documented in this encounter Results * (ABNORMAL) POCT glucose (07/22/2016 2:12 AM CDT) GLUCOSE POC 117(H) 70 - 109 07/22/2016 1:20 AM CDT [facility] ORDERS INTERFACE WHOLE BLOOD SPECIMEN / Unknown 07/22/2016 2:12 AM CDT 07/22/2016 1:20 AM CDT us Generic Conversion Md [facility] POCT ORDERABLES - DEVIC E Final Result [facility] ORDERS INTERFACE US documented in this encounter Visit Diagnoses Not on filedocumented in this encounter
--- OUTSIDE RECORDS SUMMARY | 2024-05-10 18:17 | XMS_ITS | Encounter Summary ---
Author Organization [facility] Address [address] [place] [address]. [place] [address] [place] [address] Care Team Providers Care Aoc Operations Intelligence Chief Name Role Phone Unavailable Primary Care Provider Unavailabl e Encounter Details Date Type Department Care Team (Late st Contact Info) Description 08/19/2016 Orders Only ANY CONVERSION ONE [place], [place] [id number] , Generic Conversion, Social History Tobacco Use [...] GLUCOSE - MCCORMICK DOCKED DEVICE Routine 08/19/2016 2:26 PM CDT documented in this encounter Results * (ABNORMAL) POCT glucose (08/19/2016 2:26 PM CDT) GLUCOSE POC 198(H) 70 - 109 08/19/2016 1:34 PM CDT [facility] ORDERS INTERFACE WHOLE BLOOD SPECIMEN / Unknown 08/19/2016 2:26 PM CDT 08/19/2016 1:33 PM CDT us Generic Conversion Md [facility] POCT ORDERABLES - DEVIC E Final Result [facility] ORDERS INTERFACE US documented in this encounter Visit Diagnoses Not on filedocumented in this encounter
--- OUTSIDE RECORDS SUMMARY | 2024-05-10 18:17 | XMS_ITS | Encounter Summary ---
Author Organization [facility] Address [address] [place] [address]. [place] [address] [place] [address] Care Team Providers Care Harpooner Name Role Phone Unavailable Primary Care Provider Unavailabl e Encounter Details Date Type Department Care Team (Late st Contact Info) Description 07/23/2016 Orders Only ANY CONVERSION ONE [place], [place] [id number] , Generic Conversion, Social History Tobacco Use [...] POCT GLUCOSE - MCCORMICK DOCKED DEVICE Routine 07/23/2016 1:50 PM CDT documented in this encounter Results * (ABNORMAL) POCT glucose (07/23/2016 1:50 PM CDT) GLUCOSE POC 165(H) 70 - 109 07/23/2016 12:52 PM CDT [facility] ORDERS INTERFACE WHOLE BLOOD SPECIMEN / Unknown 07/23/2016 1:50 PM CDT 07/23/2016 12:52 PM CDT us Generic Conversion Md PA[facility] POCT ORDERABLES - DEVIC E Final Result [facility] ORDERS INTERFACE US documented in this encounter Visit Diagnoses Not on filedocumented in this encounter
--- OUTSIDE RECORDS SUMMARY | 2024-05-10 18:17 | XMS_ITS | Encounter Summary ---
Author Organization [facility] Address [address] [place] [address]. [place] [address] [place] [address] Care Team Providers Care Woodwork Teacher Name Role Phone Unavailable Primary Care Provider Unavailabl e Encounter Details Date Type Department Care Team (Late st Contact Info) Description 08/19/2016 Orders [place] [address] , Generic Conversion, Social History [...] Associated Diagnosis Comments BASIC METABOLIC PANEL TIMED 08/19/2016 12:00 PM CDT documented in this encounter Results * (ABNORMAL) BASIC METABOLIC PANEL (08/19/2016 12:00 PM CDT) SODIUM S/P/B 132(L) 135 - 147 MMOL/L 08/19/2016 11:37 AM CDT [facility] POTASSIUM S/P/B 4.8 3.5 - 5.0 MMOL/L 08/19/2016 11:37 AM CDT [facility] CHLORIDE S/P/B 110(H) 98 - 107 MMOL/L 08/19/2016 11:37 AM CDT [facility] CO2 7.4(LL) 22 - 29 MMOL/L 08/19/2016 11:40 AM CDT [facility] Comment:Critical results bety led to and read back by MARY PARNELL AT 1240.SB GLUCOSE 247(H) 70 - 109 MG/DL 08/19/2016 11:37 AM CDT [facility] BUN 9 7 - 19 MG/DL 08/19/2016 11:37 AM CDT [facility] CREATININE S/P/B 0.70 0.60 - 1.10 MG/DL 08/19/2016 11:37 AM CDT [facility] CALCIUM S/P/B 8.5 8.4 - 10.2 MG/DL 08/19/2016 11:37 AM CDT [facility] EGFR NON-AFR. AMER. 107 >60 ML/MIN/1.7 3 M2 08/19/2016 11:37 AM CDT [facility] EGFR AFR. AMER. 129 >60 ML/MIN/1.7 3 M2 08/19/2016 11:37 AM CDT [facility] ANION GAP 14.6 MMOL/L 08/19/2016 11:40 AM CDT [facility] OSMOLALITY (CALC) 271 MOSM/KG 08/19/2016 11:37 AM CDT [facility] PLASMA SPECIMEN / Unknown 08/19/2016 12:00 PM CDT 08/19/2016 11:02 AM CDT us Generic Conversion Md [facility] Final R esult [facility] [address] [place] [address], [id number] documented in this encounter Visit Diagnoses Not on filedocumented in this encounter
--- OUTSIDE RECORDS SUMMARY | 2024-05-10 18:17 | XMS_ITS | Encounter Summary ---
Author Organization [facility] Address [address] [place] [address]. [place] [address] [place] [address] Care Team Providers Care Proof Machine Operator Name Role Phone Unavailable Primary Care Provider Unavailabl e Encounter Details Date Type Department Care Team (Late st Contact Info) Description 08/19/2016 Orders [place] [address] , Generic Conversion, Social History [...] Priority Date/Time Associated Diagnosis Comments URINALYSIS TIMED 08/19/2016 6:53 AM CDT documented in this encounter Results * (ABNORMAL) URINALYSIS (08/19/2016 6:53 AM CDT) COLOR (U) STRAW 08/19/2016 7:08 AM CDT [facility] TRANSPARENCY CLEAR 08/19/2016 7:08 AM CDT [facility] SPECIFIC GRAVITY (U) 1.018 1.002 - 1.035 08/19/2016 7:08 AM CDT [facility] U PH 5.0 5 - 8 08/19/2016 7:08 AM CDT [facility] PROTEIN (U) NEGATIVE NEGATIVE 08/19/2016 7:08 AM CDT [facility] URINE GLUCOSE >=500(A) NEGATIVE MG/DL 08/19/2016 7:08 AM CDT [facility] KETONES MG/DL (U) 80(A) NEGATIVE 08/19/2016 7:08 AM CDT [facility] BILIRUBIN (U) NEGATIVE NEGATIVE 08/19/2016 7:08 AM CDT [facility] BLOOD (U) NEGATIVE NEGATIVE 08/19/2016 7:08 AM CDT [facility] NITRITES NEGATIVE NEGATIVE 08/19/2016 7:08 AM CDT [facility] UROBILINOGEN NORMAL 0 - 1 EU/DL 08/19/2016 7:08 AM CDT [facility] LEUKOCYTES (U) NEGATIVE NEGATIVE 08/19/2016 7:08 AM CDT [facility] RBC/HPF <1 /HPF 08/19/2016 7:08 AM CDT [facility] WBC/HPF 4 /HPF 08/19/2016 7:08 AM CDT [facility] BACTERIA (U) NONE /HPF 08/19/2016 7:08 AM CDT [facility] SQUAMOUS EPITHELIALS 4 08/19/2016 7:08 AM CDT [facility] URINE SPECIMEN / Unknown 08/19/2016 6:53 AM CDT 08/19/2016 6:12 AM CDT us Generic Conversion Md [facility] URINE ORDERABLES Final Result [facility] [address] [place] [address], [id number] documented in this encounter Visit Diagnoses Not on filedocumented in this encounter
--- OUTSIDE RECORDS SUMMARY | 2024-05-10 18:17 | XMS_ITS | Encounter Summary ---
Author Organization [facility] Address [address] [place] [address]. [place] [address] [place] [address] Care Team Providers Care Operations Project Manager Name Role Phone Unavailable Primary Care Provider Unavailabl e Encounter Details Date Type Department Care Team (Late st Contact Info) Description 08/19/2016 Orders [place] [address] , Generic Conversion, Social History Tobacco Use [...] GLUCOSE - MCCORMICK DOCKED DEVICE Routine 08/19/2016 4:02 PM CDT documented in this encounter Results * (ABNORMAL) POCT glucose (08/19/2016 4:02 PM CDT) GLUCOSE POC 190(H) 70 - 109 08/19/2016 3:06 PM CDT [facility] ORDERS INTERFACE WHOLE BLOOD SPECIMEN / Unknown 08/19/2016 4:02 PM CDT 08/19/2016 3:06 PM CDT us Generic Conversion Md [facility] POCT ORDERABLES - DEVIC E Final Result [facility] ORDERS INTERFACE US documented in this encounter Visit Diagnoses Not on filedocumented in this encounter
--- OUTSIDE RECORDS SUMMARY | 2024-05-10 18:17 | XMS_ITS | Encounter Summary ---
Author Organization [facility] Address [address] [place] [address]. [place] [address] [place] [address] Care Team Providers Care Sheeter Waxer Operator Name Role Phone Unavailable Primary Care Provider Unavailabl e Encounter Details Date Type Department Care Team (Late st Contact Info) Description 08/19/2016 Orders Only ANY CONVERSION ONE [place], [place] [id number] , Generic Conversion, Social History Tobacco Use [...] GLUCOSE - MCCORMICK DOCKED DEVICE Routine 08/19/2016 8:46 PM CDT documented in this encounter Results * POCT glucose (08/19/2016 8:46 PM CDT) GLUCOSE POC 70 70 - 109 08/19/2016 7:49 PM CDT [facility] ORDERS INTERFACE WHOLE BLOOD SPECIMEN / Unknown 08/19/2016 8:46 PM CDT 08/19/2016 7:49 PM CDT us Generic Conversion Md [facility] POCT ORDERABLES - DEVIC E Final Result [facility] ORDERS INTERFACE US documented in this encounter Visit Diagnoses Not on filedocumented in this encounter
--- OUTSIDE RECORDS SUMMARY | 2024-05-10 18:17 | XMS_ITS | Encounter Summary ---
Author Organization [facility] Address [address] [place] [address]. [place] [address] [place] [address] Care Team Providers Care Weaving Machine Operator Name Role Phone Unavailable Primary Care Provider Unavailabl e Encounter Details Date Type Department Care Team (Late st Contact Info) Description 08/19/2016 Orders [place] [address] , Generic Conversion, Social History [...] Diagnosis Comments BASIC METABOLIC PANEL TIMED 08/19/2016 9:56 PM CDT documented in this encounter Results * (ABNORMAL) BASIC METABOLIC PANEL (08/19/2016 9:56 PM CDT) SODIUM S/P/B 133(L) 135 - 147 MMOL/L 08/19/2016 9:25 PM CDT [facility] POTASSIUM S/P/B 4.1 3.5 - 5.0 MMOL/L 08/19/2016 9:25 PM CDT [facility] CHLORIDE S/P/B 116(H) 98 - 107 MMOL/L 08/19/2016 9:25 PM CDT [facility] CO2 10.8(L) 22 - 29 MMOL/L 08/19/2016 9:25 PM CDT [facility] GLUCOSE 131(H) 70 - 109 MG/DL 08/19/2016 9:25 PM CDT [facility] BUN 4(L) 7 - 19 MG/DL 08/19/2016 9:25 PM CDT [facility] CREATININE S/P/B 0.57(L) 0.60 - 1.10 MG/DL 08/19/2016 9:25 PM CDT [facility] CALCIUM S/P/B 8.3(L) 8.4 - 10.2 MG/DL 08/19/2016 9:25 PM CDT [facility] EGFR NON-AFR. AMER. 135 >60 ML/MIN/1.7 3 M2 08/19/2016 9:25 PM CDT [facility] EGFR AFR. AMER. 164 >60 ML/MIN/1.7 3 M2 08/19/2016 9:25 PM CDT [facility] ANION GAP 6.2 MMOL/L 08/19/2016 9:25 PM CDT [facility] OSMOLALITY (CALC) 265 MOSM/KG 08/19/2016 9:25 PM CDT [facility] PLASMA SPECIMEN / Unknown 08/19/2016 9:56 PM CDT 08/19/2016 9:05 PM CDT us Generic Conversion Md [facility] Final R esult [facility] [address] [place] [address], [id number] documented in this encounter Visit Diagnoses Not on filedocumented in this encounter
--- OUTSIDE RECORDS SUMMARY | 2024-05-10 18:17 | XMS_ITS | Encounter Summary ---
Author Organization [facility] Address [address] [place] [address]. [place] [address] [place] [address] Care Team Providers Care Electrical Tech/Project Manager Name Role Phone Unavailable Primary Care Provider Unavailabl e Encounter Details Date Type Department Care Team (Late st Contact Info) Description 08/19/2016 Orders [place] [address] , Generic Conversion, Social History [...] Diagnosis Comments BASIC METABOLIC PANEL TIMED 08/19/2016 5:58 PM CDT documented in this encounter Results * (ABNORMAL) BASIC METABOLIC PANEL (08/19/2016 5:58 PM CDT) SODIUM S/P/B 133(L) 135 - 147 MMOL/L 08/19/2016 5:29 PM CDT [facility] POTASSIUM S/P/B 4.2 3.5 - 5.0 MMOL/L 08/19/2016 5:29 PM CDT [facility] CHLORIDE S/P/B 112(H) 98 - 107 MMOL/L 08/19/2016 5:29 PM CDT [facility] CO2 13.0(L) 22 - 29 MMOL/L 08/19/2016 5:29 PM CDT [facility] GLUCOSE 153(H) 70 - 109 MG/DL 08/19/2016 5:29 PM CDT [facility] BUN 6(L) 7 - 19 MG/DL 08/19/2016 5:29 PM CDT [facility] CREATININE S/P/B 0.66 0.60 - 1.10 MG/DL 08/19/2016 5:29 PM CDT [facility] CALCIUM S/P/B 8.6 8.4 - 10.2 MG/DL 08/19/2016 5:29 PM CDT [facility] EGFR NON-AFR. AMER. 114 >60 ML/MIN/1.7 3 M2 08/19/2016 5:29 PM CDT [facility] EGFR AFR. AMER. 138 >60 ML/MIN/1.7 3 M2 08/19/2016 5:29 PM CDT [facility] ANION GAP 8.0 MMOL/L 08/19/2016 5:29 PM CDT [facility] OSMOLALITY (CALC) 267 MOSM/KG 08/19/2016 5:29 PM CDT [facility] PLASMA SPECIMEN / Unknown 08/19/2016 5:58 PM CDT 08/19/2016 4:59 PM CDT us Generic Conversion Md [facility] Final R esult [facility] [address] [place] [address], [id number] documented in this encounter Visit Diagnoses Not on filedocumented in this encounter
--- OUTSIDE RECORDS SUMMARY | 2024-05-10 18:17 | XMS_ITS | Encounter Summary ---
Author Organization [facility] Address [address] [place] [address]. [place] [address] [place] [address] Care Team Providers Care Community Liaison Officer Name Role Phone Unavailable Primary Care Provider Unavailabl e Encounter Details Date Type Department Care Team (Late st Contact Info) Description 07/22/2016 Orders [place] [address] , Generic Conversion, Social History Tobacco Use [...] GLUCOSE - MCCORMICK DOCKED DEVICE Routine 07/22/2016 6:08 AM CDT documented in this encounter Results * POCT glucose (07/22/2016 6:08 AM CDT) GLUCOSE POC 94 70 - 109 07/22/2016 5:16 AM CDT [facility] ORDERS INTERFACE WHOLE BLOOD SPECIMEN / Unknown 07/22/2016 6:08 AM CDT 07/22/2016 5:16 AM CDT us Generic Conversion Md [facility] POCT ORDERABLES - DEVIC E Final Result [facility] ORDERS INTERFACE US documented in this encounter Visit Diagnoses Not on filedocumented in this encounter
--- OUTSIDE RECORDS SUMMARY | 2024-05-10 18:17 | XMS_ITS | Encounter Summary ---
Author Organization [facility] - [facility] Address [address] [place] [address]. [place] [address] [place] [address] Care Team Providers Care Wine Steward Name Role Phone Unavailable Primary Care Provider Unavailabl e Encounter Details Date Type Department Care Team (Late st Contact Info) Description 07/23/2016 Orders [place] [address] , Generic Conversion, Social History Tobacco Use [...] GLUCOSE - MCCORMICK DOCKED DEVICE Routine 07/23/2016 10:41 AM CDT documented in this encounter Results * POCT glucose (07/23/2016 10:41 AM CDT) GLUCOSE POC 96 70 - 109 07/23/2016 9:43 AM CDT [facility] ORDERS INTERFACE WHOLE BLOOD SPECIMEN / Unknown 07/23/2016 10:41 AM CDT 07/23/2016 9:43 AM CDT us Generic Conversion Md PASTRA[facility] POCT ORDERABLES - DEVIC E Final Result [facility] ORDERS INTERFACE US documented in this encounter Visit Diagnoses Not on filedocumented in this encounter
--- OUTSIDE RECORDS SUMMARY | 2024-05-10 18:17 | XMS_ITS | Encounter Summary ---
Author Organization [facility] Address [address] [place] [address]. [place] [address] [place] [address] Care Team Providers Care Head Of Research & Insights Name Role Phone Unavailable Primary Care Provider Unavailabl e Encounter Details Date Type Department Care Team (Late st Contact Info) Description 07/21/2016 Orders Only ANY CONVERSION ONE [place], [place] [id number] , Generic Conversion, Social History Tobacco Use [...] POCT GLUCOSE - MCCORMICK DOCKED DEVICE Routine 07/21/2016 8:01 AM CDT documented in this encounter Results * (ABNORMAL) POCT glucose (07/21/2016 8:01 AM CDT) GLUCOSE POC 234(H) 70 - 109 07/21/2016 7:05 AM CDT [facility] ORDERS INTERFACE WHOLE BLOOD SPECIMEN / Unknown 07/21/2016 8:01 AM CDT 07/21/2016 7:05 AM CDT us Generic Conversion Md PA[facility] POCT ORDERABLES - DEVIC E Final Result [facility] ORDERS INTERFACE US documented in this encounter Visit Diagnoses Not on filedocumented in this encounter
--- OUTSIDE RECORDS SUMMARY | 2024-05-10 18:17 | XMS_ITS | Encounter Summary ---
Author Organization [facility] Address [address] [place] [address]. [place] [address] [place] [address] Care Team Providers Care Electronic Commerce Specialist Name Role Phone Unavailable Primary Care Provider Unavailabl e Encounter Details Date Type Department Care Team (Late st Contact Info) Description 07/21/2016 Orders [place] [address] , Generic Conversion, Social History Tobacco Use [...] GLUCOSE - MCCORMICK DOCKED DEVICE Routine 07/21/2016 9:01 AM CDT documented in this encounter Results * (ABNORMAL) POCT glucose (07/21/2016 9:01 AM CDT) GLUCOSE POC 206(H) 70 - 109 07/21/2016 8:13 AM CDT [facility] ORDERS INTERFACE WHOLE BLOOD SPECIMEN / Unknown 07/21/2016 9:01 AM CDT 07/21/2016 8:13 AM CDT us Generic Conversion Md PASTRANA POCT ORDERABLES - DEVIC E Final Result [facility] ORDERS INTERFACE US documented in this encounter Visit Diagnoses Not on filedocumented in this encounter
--- OUTSIDE RECORDS SUMMARY | 2024-05-10 18:17 | XMS_ITS | Encounter Summary ---
Author Organization [facility] Address [address] [place] [address]. [place] [address] [place] [address] Care Team Providers Care Editorial Project Manager Name Role Phone Unavailable Primary Care Provider Unavailabl e Encounter Details Date Type Department Care Team (Late st Contact Info) Description 07/21/2016 Orders Only ANY CONVERSION ONE [place], [place] [id number] , Generic Conversion, Social History Tobacco Use [...] GLUCOSE - MCCORMICK DOCKED DEVICE Routine 07/21/2016 5:43 PM CDT documented in this encounter Results * POCT glucose (07/21/2016 5:43 PM CDT) GLUCOSE POC 86 70 - 109 07/21/2016 4:46 PM CDT [facility] ORDERS INTERFACE WHOLE BLOOD SPECIMEN / Unknown 07/21/2016 5:43 PM CDT 07/21/2016 4:46 PM CDT us Generic Conversion Md PASTRANA POCT ORDERABLES - DEVIC E Final Result [facility] ORDERS INTERFACE US documented in this encounter Visit Diagnoses Not on filedocumented in this encounter
--- OUTSIDE RECORDS SUMMARY | 2024-05-10 18:17 | XMS_ITS | Encounter Summary ---
Author Organization [facility] - [facility] Address [address] [place] [address]. [place] [address] [place] [address] Care Team Providers Care Timber Sizer Name Role Phone Unavailable Primary Care Provider Unavailabl e Encounter Details Date Type Department Care Team (Late st Contact Info) Description 07/21/2016 Orders Only ANY CONVERSION ONE [place], [place] [id number] , Generic Conversion, Social History Tobacco Use [...] GLUCOSE - MCCORMICK DOCKED DEVICE Routine 07/21/2016 1:31 PM CDT documented in this encounter Results * (ABNORMAL) POCT glucose (07/21/2016 1:31 PM CDT) GLUCOSE POC 168(H) 70 - 109 07/21/2016 12:34 PM CDT [facility] LAB ORDERS INTERFACE WHOLE BLOOD SPECIMEN / Unknown 07/21/2016 1:31 PM CDT 07/21/2016 12:34 PM CDT us Generic Conversion Md PASTRANA POCT ORDERABLES - DEVIC E Final Result [facility] LAB ORDERS INTERFACE US documented in this encounter Visit Diagnoses Not on filedocumented in this encounter
--- OUTSIDE RECORDS SUMMARY | 2024-05-10 18:17 | XMS_ITS | Encounter Summary ---
Author Organization [facility] - [facility] Address [address] [place] [address]. [place] [address] [place] [address] Care Team Providers Care Carton Forming Machine Adjuster Name Role Phone Unavailable Primary Care Provider Unavailabl e Encounter Details Date Type Department Care Team (Late st Contact Info) Description 07/21/2016 Orders Only ANY CONVERSION ONE [place], [place] [id number] , Generic Conversion, Social History Tobacco Use [...] GLUCOSE - MCCORMICK DOCKED DEVICE Routine 07/21/2016 4:35 PM CDT documented in this encounter Results * POCT glucose (07/21/2016 4:35 PM CDT) GLUCOSE POC 108 70 - 109 07/21/2016 3:43 PM CDT [facility] LAB ORDERS INTERFACE WHOLE BLOOD SPECIMEN / Unknown 07/21/2016 4:35 PM CDT 07/21/2016 3:43 PM CDT us Generic Conversion Md PASTRANA POCT ORDERABLES - DEVIC E Final Result [facility] LAB ORDERS INTERFACE US documented in this encounter Visit Diagnoses Not on filedocumented in this encounter
--- OUTSIDE RECORDS SUMMARY | 2024-05-10 18:17 | XMS_ITS | Encounter Summary ---
Author Organization [facility] - [facility] Address [address] [place] [address]. [place] [address] [place] [address] Care Team Providers Care Doughnut Maker Name Role Phone Unavailable Primary Care Provider Unavailabl e Encounter Details Date Type Department Care Team (Late st Contact Info) Description 08/19/2016 Orders Only ANY CONVERSION ONE [place], [place] [id number] , Generic Conversion, Social History Tobacco Use [...] GLUCOSE - MCCORMICK DOCKED DEVICE Routine 08/19/2016 5:04 PM CDT documented in this encounter Results * (ABNORMAL) POCT glucose (08/19/2016 5:04 PM CDT) GLUCOSE POC 169(H) 70 - 109 08/19/2016 4:07 PM CDT [facility] LAB ORDERS INTERFACE WHOLE BLOOD SPECIMEN / Unknown 08/19/2016 5:04 PM CDT 08/19/2016 4:07 PM CDT us Generic Conversion Md PASTRANA POCT ORDERABLES - DEVIC E Final Result [facility] LAB ORDERS INTERFACE US documented in this encounter Visit Diagnoses Not on filedocumented in this encounter
--- OUTSIDE RECORDS SUMMARY | 2024-05-10 18:17 | XMS_ITS | Encounter Summary ---
Author Organization [facility] - [facility] Address [address] [place] [address]. [place] [address] [place] [address] Care Team Providers Care Morgue Attendant Name Role Phone Unavailable Primary Care Provider Unavailabl e Encounter Details Date Type Department Care Team (Late st Contact Info) Description 07/21/2016 Orders Only ANY CONVERSION ONE [place], [place] [id number] , Generic Conversion, Social History Tobacco Use [...] GLUCOSE - MCCORMICK DOCKED DEVICE Routine 07/21/2016 3:39 PM CDT documented in this encounter Results * (ABNORMAL) POCT glucose (07/21/2016 3:39 PM CDT) GLUCOSE POC 143(H) 70 - 109 07/21/2016 2:46 PM CDT [facility] LAB ORDERS INTERFACE WHOLE BLOOD SPECIMEN / Unknown 07/21/2016 3:39 PM CDT 07/21/2016 2:46 PM CDT us Generic Conversion Md PASTRANA POCT ORDERABLES - DEVIC E Final Result [facility] LAB ORDERS INTERFACE US documented in this encounter Visit Diagnoses Not on filedocumented in this encounter
--- OUTSIDE RECORDS SUMMARY | 2024-05-10 18:17 | XMS_ITS | Encounter Summary ---
Author Organization [facility] Address [address] [place] [address]. [place] [address] [place] [address] Care Team Providers Care Business Machine Mechanic Name Role Phone Unavailable Primary Care Provider Unavailabl e Encounter Details Date Type Department Care Team (Late st Contact Info) Description 07/21/2016 Orders Only [place] [address] , Generic Conversion, Social [...] Associated Diagnosis Comments COMPREHENSIVE METABOLIC PANEL STAT 07/21/2016 3:49 AM CDT documented in this encounter Results * (ABNORMAL) COMPREHENSIVE METABOLIC PANEL (07/21/2016 3:49 AM CDT) SODIUM S/P/B 135 135 - 147 MMOL/L 07/21/2016 3:21 AM CDT [facility] POTASSIUM S/P/B 3.4(L) 3.5 - 5.0 MMOL/L 07/21/2016 3:21 AM CDT [facility] CHLORIDE S/P/B 100 98 - 107 MMOL/L 07/21/2016 3:21 AM CDT [facility] CO2 22.6 22 - 29 MMOL/L 07/21/2016 3:21 AM T [facility] GLUCOSE 216(H) 70 - 109 MG/DL 07/21/2016 3:21 AM [facility] BUN 6(L) 7 - 19 MG/DL 07/21/2016 3:21 AM [facility] CREATININE S/P/B 0.63 0.60 - 1.10 MG/DL 07/21/2016 3:21 AM T [facility] CALCIUM S/P/B 9.0 8.4 - 10.2 MG/DL 07/21/2016 3:21 AM [facility] BILIRUBIN TOTAL S/P/B 0.4 0.2 - 1.2 MG/DL 07/21/2016 3:21 AM [facility] ALKALINE PHOSPHATASE S/P/B 78 52 - 144 U/L 07/21/2016 3:21 AM [facility] AST 8 5 - 35 U/L 07/21/2016 3:21 AM [facility] ALT 6 0 - 55 U/L 07/21/2016 3:21 AM [facility] TOTAL PROTEIN S/P/B 6.9 6.0 - 8.3 G/DL 07/21/2016 3:21 AM [facility] ALBUMIN S/P/B 3.5 3.4 - 4.9 G/DL 07/21/2016 3:21 AM T [facility] ANION GAP 12.4 MMOL/L 07/21/2016 3:21 AM [facility] OSMOLALITY (CALC) 274 MOSM/KG 07/21/2016 3:21 AM [facility] EGFR NON-AFR. AMER. 120 >60 ML/MIN/1.7 3 M2 07/21/2016 3:21 AM T [facility] EGFR AFR. AMER. 146 >60 ML/MIN/1.7 3 M2 07/21/2016 3:21 AM CDT [facility] PLASMA SPECIMEN / Unknown 07/21/2016 3:49 AM CDT 07/21/2016 2:54 AM CDT us Generic Conversion Md PA[facility] LABORATORY Final R esult Performing Organization Address City/State/[facility] Co de Phone Number [facility] [address] [place] [address], [place] [phone] [id number] documented in this encounter Visit Diagnoses Not on filedocumented in this encounter
--- OUTSIDE RECORDS SUMMARY | 2024-05-10 18:17 | XMS_ITS | Encounter Summary ---
Author Organization [facility] - [facility] Address [address] [place] [address]. [place] [address] [place] [address] Care Team Providers Care Plumbing Instructor Name Role Phone Unavailable Primary Care Provider Unavailabl e Encounter Details Date Type Department Care Team (Late st Contact Info) Description 07/21/2016 Orders Only ANY CONVERSION ONE [place], [place] [id number] , Generic Conversion, Social History Tobacco Use [...] GLUCOSE - MCCORMICK DOCKED DEVICE Routine 07/21/2016 8:30 AM CDT documented in this encounter Results * (ABNORMAL) POCT glucose (07/21/2016 8:30 AM CDT) GLUCOSE POC 217(H) 70 - 109 07/21/2016 7:34 AM CDT [facility] LAB ORDERS INTERFACE WHOLE BLOOD SPECIMEN / Unknown 07/21/2016 8:30 AM CDT 07/21/2016 7:33 AM CDT us Generic Conversion Md PASTRANA POCT ORDERABLES - DEVIC E Final Result [facility] LAB ORDERS INTERFACE US documented in this encounter Visit Diagnoses Not on filedocumented in this encounter
--- OUTSIDE RECORDS SUMMARY | 2024-05-10 18:17 | XMS_ITS | Encounter Summary ---
Author Organization [facility] Address [address] [place] [address]. [place] [address] [place] [address] Care Team Providers Care Junior Web Developer Name Role Phone Unavailable Primary Care Provider Unavailabl e Encounter Details Date Type Department Care Team (Late st Contact Info) Description 07/21/2016 Orders Only ANY CONVERSION ONE [place], [place] [id number] , Generic Conversion, Social History Tobacco Use [...] Procedure Name Priority Date/Time Associated Diagnosis Comments SYPHILIS/RPR/VDRL; QUAL NOW 07/21/2016 6:10 AM CDT documented in this encounter Results * SYPHILIS/RPR/VDRL; QUAL (07/21/2016 6:10 AM CDT) RPR NON-REACTIV E NON-REACTI VE 07/22/2016 10:48 AM CDT [facility] SERUM SPECIMEN / Unknown 07/21/2016 6:10 AM CDT 07/21/2016 5:32 AM CDT us Generic Conversion Md PA[facility] LABORAT[facility] Final R esult [facility] [address] [place] [address], [id number] documented in this encounter Visit Diagnoses Not on filedocumented in this encounter
--- OUTSIDE RECORDS SUMMARY | 2024-05-10 18:17 | XMS_ITS | Encounter Summary ---
Author Organization [facility] - [facility] Address [address] [place] [address]. [place] [address] [place] [address] Care Team Providers Care Metal Ceiling Hanger Name Role Phone Unavailable Primary Care Provider Unavailabl e Encounter Details Date Type Department Care Team (Late st Contact Info) Description 07/21/2016 Orders Only ANY CONVERSION ONE [place], [place] [id number] , Generic Conversion, Social History Tobacco Use [...] GLUCOSE - MCCORMICK DOCKED DEVICE Routine 07/21/2016 8:39 PM CDT documented in this encounter Results * (ABNORMAL) POCT glucose (07/21/2016 8:39 PM CDT) GLUCOSE POC 157(H) 70 - 109 07/21/2016 7:42 PM CDT [facility] LAB ORDERS INTERFACE Comment:RN Notified WHOLE BLOOD SPECIMEN / Unknown 07/21/2016 8:39 PM CDT 07/21/2016 7:42 PM CDT us Generic Conversion Md PASTRANA POCT ORDERABLES - DEVIC E Final Result [facility] LAB ORDERS INTERFACE US documented in this encounter Visit Diagnoses Not on filedocumented in this encounter
--- OUTSIDE RECORDS SUMMARY | 2024-05-10 18:17 | XMS_ITS | Encounter Summary ---
Author Organization [facility] Address [address] [place] [address]. [place] [address] [place] [address] Care Team Providers Care Agricultural Service Worker Name Role Phone Unavailable Primary Care Provider Unavailabl e Encounter Details Date Type Department Care Team (Late st Contact Info) Description 07/21/2016 Orders [place] [address] , Generic Conversion, Social History [...] Associated Diagnosis Comments BLOOD GAS, ARTERIAL LAB STAT 07/21/2016 12:31 PM CDT documented in this encounter Results * (ABNORMAL) ARTERIAL BLOOD GAS (07/21/2016 12:31 PM CDT) PH ARTERIAL 7.44 7.35 - 7.45 07/21/2016 11:52 AM CDT [facility] PCO2 33.2(L) 35 - 45 MMHG 07/21/2016 11:52 AM CDT [facility] PO2 108.0(H) 80 - 90 MMHG 07/21/2016 11:52 AM CDT [facility] BICARB ARTERIAL 22.2 22 - 26 MMOL/L 07/21/2016 11:52 AM CDT [facility] TCO2 23.2 23 - 27 MMOL/L 07/21/2016 11:52 AM CDT [facility] BASE DEFICIT 0.4 0 - 2 MMOL/L 07/21/2016 11:52 AM CDT [facility] CARBONIC ACID ARTERIAL 1.0 MMOL/L 07/21/2016 11:52 AM CDT [facility] LITER FLOW ROOM AIR L/M 07/21/2016 11:52 AM CDT [facility] 07/21/2016 12:3 1 PM CDT 07/21/2016 11:33 AM CDT us Generic Conversion Md PA[facility]NA LABORATORY Final R esult [facility] [address] [place] [address], [id number] documented in this encounter Visit Diagnoses Not on filedocumented in this encounter
--- OUTSIDE RECORDS SUMMARY | 2024-05-10 18:17 | XMS_ITS | Encounter Summary ---
Author Organization [facility] Address [address] [place] [address]. [place] [address] [place] [address] Care Team Providers Care Brim Flexer Name Role Phone Unavailable Primary Care Provider Unavailabl e Encounter Details Date Type Department Care Team (Latest Contact Info) Description 07/24/2016 Abstract [facility] Medical [facility] Social History Tobacco Use Types [...]
--- OUTSIDE RECORDS SUMMARY | 2024-05-10 18:17 | XMS_ITS | Encounter Summary ---
Author Organization [facility] Address [address] [place] [address]. [place] [address] [place] [address] Care Team Providers Care Switch Coupler Name Role Phone Unavailable Primary Care Provider Unavailabl e Encounter Details Date Type Department Care Team (Late st Contact Info) Description 07/22/2016 Orders [place] [address] , Generic Conversion, Social History Tobacco Use [...] GLUCOSE - MCCORMICK DOCKED DEVICE Routine 07/22/2016 10:38 AM CDT documented in this encounter Results * POCT glucose (07/22/2016 10:38 AM CDT) GLUCOSE POC 91 70 - 109 07/22/2016 9:41 AM CDT [facility] ORDERS INTERFACE WHOLE BLOOD SPECIMEN / Unknown 07/22/2016 10:38 AM CDT 07/22/2016 9:41 AM CDT us Generic Conversion Md PASTRANA POCT ORDERABLES - DEVIC E Final Result [facility] LAB ORDERS INTERFACE US documented in this encounter Visit Diagnoses Not on filedocumented in this encounter
--- OUTSIDE RECORDS SUMMARY | 2024-05-10 18:17 | XMS_ITS | Encounter Summary ---
Author Organization [facility] Address [address] [place] [address]. [place] [address] [place] [address] Care Team Providers Care Compliance Tester Name Role Phone Unavailable Primary Care Provider Unavailabl e Encounter Details Date Type Department Care Team (Latest Contact Info) Description 07/23/2016 Abstract [facility] Medical [facility] Social History Tobacco Use Types [...]
--- OUTSIDE RECORDS SUMMARY | 2024-05-10 18:17 | XMS_ITS | Encounter Summary ---
Author Organization [facility] - [facility] Address [address] [place] [address]. [place] [address] [place] [address] Care Team Providers Care Steward Dishwasher Name Role Phone Unavailable Primary Care Provider Unavailabl e Encounter Details Date Type Department Care Team (Late st Contact Info) Description 07/21/2016 Orders Only ANY CONVERSION ONE [place], [place] [id number] , Generic Conversion, Social History Tobacco Use [...] GLUCOSE - MCCORMICK DOCKED DEVICE Routine 07/21/2016 1:01 PM CDT documented in this encounter Results * (ABNORMAL) POCT glucose (07/21/2016 1:01 PM CDT) GLUCOSE POC 189(H) 70 - 109 07/21/2016 12:10 PM CDT [facility] LAB ORDERS INTERFACE WHOLE BLOOD SPECIMEN / Unknown 07/21/2016 1:01 PM CDT 07/21/2016 12:10 PM CDT us Generic Conversion Md PASTRANA POCT ORDERABLES - DEVIC E Final Result [facility] LAB ORDERS INTERFACE US documented in this encounter Visit Diagnoses Not on filedocumented in this encounter
--- OUTSIDE RECORDS SUMMARY | 2024-05-10 18:17 | XMS_ITS | Encounter Summary ---
Author Organization [facility] Address [address] [place] [address]. [place] [address] [place] [address] Care Team Providers Care Strip Cutter Name Role Phone Unavailable Primary Care Provider Unavailabl e Encounter Details Date Type Department Care Team (Late st Contact Info) Description 08/19/2016 Orders [place] [address] , Generic Conversion, Social History Tobacco Use [...] GLUCOSE - MCCORMICK DOCKED DEVICE Routine 08/19/2016 1:01 PM CDT documented in this encounter Results * (ABNORMAL) POCT glucose (08/19/2016 1:01 PM CDT) GLUCOSE POC 212(H) 70 - 109 08/19/2016 12:05 PM CDT [facility] ORDERS INTERFACE WHOLE BLOOD SPECIMEN / Unknown 08/19/2016 1:01 PM CDT 08/19/2016 12:05 PM CDT us Generic Conversion Md PASTRANA POCT ORDERABLES - DEVIC E Final Result [facility] ORDERS INTERFACE US documented in this encounter Visit Diagnoses Not on filedocumented in this encounter
--- OUTSIDE RECORDS SUMMARY | 2024-05-10 18:17 | XMS_ITS | Encounter Summary ---
Author Organization [facility] Address [address] [place] [address]. [place] [address] [place] [address] Care Team Providers Care Process Tank Tender Name Role Phone Unavailable Primary Care Provider Unavailabl e Encounter Details Date Type Department Care Team (Late st Contact Info) Description 08/19/2016 Orders Only [place] [address] , Generic Conversion, Social History [...] Associated Diagnosis Comments COMPREHENSIVE METABOLIC PANEL STAT 08/19/2016 7:21 AM CDT documented in this encounter Results * (ABNORMAL) COMPREHENSIVE METABOLIC PANEL (08/19/2016 7:21 AM CDT) SODIUM S/P/B 132(L) 135 - 147 MMOL/L 08/19/2016 6:54 AM CDT [facility] POTASSIUM S/P/B 4.3 3.5 - 5.0 MMOL/L 08/19/2016 6:54 AM CDT [facility] CHLORIDE S/P/B 105 98 - 107 MMOL/L 08/19/2016 6:54 AM CDT [facility] CO2 8.8(LL) 22 - 29 MMOL/L 08/19/2016 7:12 AM T [facility] Comment:Critical results bety led to and read back by MARY LOPEZ AT [id number].[id number] GLUCOSE 264(H) 70 - 109 MG/DL 08/19/2016 6:54 AM T [facility] BUN 9 7 - 19 MG/DL 08/19/2016 6:54 AM T [facility] CREATININE S/P/B 0.72 0.60 - 1.10 MG/DL 08/19/2016 6:54 AM T [facility] CALCIUM S/P/B 9.2 8.4 - 10.2 MG/DL 08/19/2016 6:54 AM [facility] BILIRUBIN TOTAL S/P/B 0.6 0.2 - 1.2 MG/DL 08/19/2016 6:54 AM [facility] ALKALINE PHOSPHATASE S/P/B 78 52 - 144 U/L 08/19/2016 6:54 AM [facility] AST 10 5 - 35 U/L 08/19/2016 6:54 AM [facility] ALT 6 0 - 55 U/L 08/19/2016 6:54 AM [facility] TOTAL PROTEIN S/P/B 7.3 6.0 - 8.3 G/DL 08/19/2016 6:54 AM [facility] ALBUMIN S/P/B 3.9 3.4 - 4.9 G/DL 08/19/2016 6:54 AM T [facility] ANION GAP 18.2 MMOL/L 08/19/2016 7:12 AM [facility] OSMOLALITY (CALC) 272 MOSM/KG 08/19/2016 6:54 AM [facility] EGFR NON-AFR. AMER. 103 >60 ML/MIN/1.7 3 M2 08/19/2016 6:54 AM T [facility] EGFR AFR. AMER. 125 >60 ML/MIN/1.7 3 M2 08/19/2016 6:54 AM CDT [facility] PLASMA SPECIMEN / Unknown 08/19/2016 7:21 AM CDT 08/19/2016 6:24 AM CDT us Generic Conversion Md [facility] Final R esult [facility] [address] [place] [address], [id number] documented in this encounter Visit Diagnoses Not on filedocumented in this encounter
--- OUTSIDE RECORDS SUMMARY | 2024-05-10 18:17 | XMS_ITS | Encounter Summary ---
Author Organization [facility] Address [address] [place] [address]. [place] [address] [place] [address] Care Team Providers Care Neurology Tech Name Role Phone Unavailable Primary Care Provider Unavailabl e Encounter Details Date Type Department Care Team (Late st Contact Info) Description 07/23/2016 Orders [place] [address] , Generic Conversion, Social History Tobacco Use [...] GLUCOSE - MCCORMICK DOCKED DEVICE Routine 07/23/2016 9:05 AM CDT documented in this encounter Results * POCT glucose (07/23/2016 9:05 AM CDT) GLUCOSE POC 83 70 - 109 07/23/2016 8:26 AM CDT [facility] INTERFACE WHOLE BLOOD SPECIMEN / Unknown 07/23/2016 9:05 AM CDT 07/23/2016 8:26 AM CDT us Generic Conversion Md PASTRANA POCT ORDERABLES - DEVIC E Final Result [facility] LAB ORDERS INTERFACE US documented in this encounter Visit Diagnoses Not on filedocumented in this encounter
--- OUTSIDE RECORDS SUMMARY | 2024-05-10 18:17 | XMS_ITS | Encounter Summary ---
Author Organization [facility] Address [address] [place] [address]. [place] [address] [place] [address] Care Team Providers Care Wrapper Stripper Name Role Phone Unavailable Primary Care Provider Unavailabl e Encounter Details Date Type Department Care Team (Late st Contact Info) Description 08/19/2016 Orders Only ANY CONVERSION ONE [place], [place] [id number] , Generic Conversion, Social History Tobacco Use [...] GLUCOSE - MCCORMICK DOCKED DEVICE Routine 08/19/2016 5:57 PM CDT documented in this encounter Results * (ABNORMAL) POCT glucose (08/19/2016 5:57 PM CDT) GLUCOSE POC 162(H) 70 - 109 08/19/2016 4:59 PM CDT [facility] ORDERS INTERFACE WHOLE BLOOD SPECIMEN / Unknown 08/19/2016 5:57 PM CDT 08/19/2016 4:59 PM CDT us Generic Conversion Md PASTRANA POCT ORDERABLES - DEVIC E Final Result [facility] ORDERS INTERFACE US documented in this encounter Visit Diagnoses Not on filedocumented in this encounter
--- OUTSIDE RECORDS SUMMARY | 2024-05-10 18:17 | XMS_ITS | Encounter Summary ---
Author Organization [facility] Address [address] [place] [address]. [place] [address] [place] [address] Care Team Providers Care Superintendent Job Name Role Phone Unavailable Primary Care Provider Unavailabl e Encounter Details Date Type Department Care Team (Late st Contact Info) Description 08/19/2016 Abstract [facility] [address] [place] [address] Lorenzo Melendez MD [address] [place] [address] Ector Mayfield MD [address] [place] [address] Social History Tobacco Use Types [...] Diagnoses Diagnosis Pre-existing type 1 diabetes mellitus during in third trimester (HHS/HCC) documented in this encounter
--- OUTSIDE RECORDS SUMMARY | 2024-05-10 18:17 | XMS_ITS | Encounter Summary ---
Author Organization [facility] Address [address] [place] [address]. [place] [address] [place] [address] Care Team Providers Care School Cafeteria Cook Head Name Role Phone Unavailable Primary Care Provider Unavailabl e Encounter Details Date Type Department Care Team (Late st Contact Info) Description 07/21/2016 Orders Only ANY CONVERSION ONE [place], [place] [id number] , Generic Conversion, Social History Tobacco Use [...] GLUCOSE - MCCORMICK DOCKED DEVICE Routine 07/21/2016 10:38 PM CDT documented in this encounter Results * POCT glucose (07/21/2016 10:38 PM CDT) GLUCOSE POC 108 70 - 109 07/21/2016 9:[address] [facility] ORDERS INTERFACE WHOLE BLOOD SPECIMEN / Unknown 07/21/2016 10:38 PM CDT 07/21/2016 9:43 PM CDT us Generic Conversion Md PASTRANA POCT ORDERABLES - DEVIC E Final Result [facility] LAB ORDERS INTERFACE US documented in this encounter Visit Diagnoses Not on filedocumented in this encounter
--- OUTSIDE RECORDS SUMMARY | 2024-05-10 18:17 | XMS_ITS | Encounter Summary ---
Author Organization [facility] Address [address] [place] [address]. [place] [address] [place] [address] Care Team Providers Care Load Tallier Name Role Phone Unavailable Primary Care Provider Unavailabl e Encounter Details Date Type Department Care Team (Late st Contact Info) Description 08/19/2016 Orders Only ANY CONVERSION ONE [place], [place] [id number] , Generic Conversion, Social History Tobacco Use [...] GLUCOSE - MCCORMICK DOCKED DEVICE Routine 08/19/2016 11:18 PM CDT documented in this encounter Results * (ABNORMAL) POCT glucose (08/19/2016 11:18 PM CDT) GLUCOSE POC 158(H) 70 - 109 08/19/2016 10:21 PM CDT [facility] ORDERS INTERFACE WHOLE BLOOD SPECIMEN / Unknown 08/19/2016 11:18 PM CDT 08/19/2016 10:21 PM CDT us Generic Conversion Md PASTRANA POCT ORDERABLES - DEVIC E Final Result [facility] ORDERS INTERFACE US documented in this encounter Visit Diagnoses Not on filedocumented in this encounter
--- OUTSIDE RECORDS SUMMARY | 2024-05-10 18:17 | XMS_ITS | Encounter Summary ---
Author Organization [facility] - [facility] Address [address] [place] [address]. [place] [address] [place] [address] Care Team Providers Care Radio Intelligence Operator Name Role Phone Unavailable Primary Care Provider Unavailabl e Encounter Details Date Type Department Care Team (Late st Contact Info) Description 07/21/2016 [place] [address] , Generic Conversion, Social History Tobacco Use [...] GLUCOSE - MCCORMICK DOCKED DEVICE Routine 07/21/2016 7:02 AM CDT documented in this encounter Results * (ABNORMAL) POCT glucose (07/21/2016 7:02 AM CDT) GLUCOSE POC 260(H) 70 - 109 07/21/2016 6:06 AM CDT [facility] LAB ORDERS INTERFACE WHOLE BLOOD SPECIMEN / Unknown 07/21/2016 7:02 AM CDT 07/21/2016 6:06 AM CDT us Generic Conversion Md PASTRANA POCT ORDERABLES - DEVIC E Final Result [facility] LAB ORDERS INTERFACE US documented in this encounter Visit Diagnoses Not on filedocumented in this encounter
--- OUTSIDE RECORDS SUMMARY | 2024-05-10 18:17 | XMS_ITS | Encounter Summary ---
Author Organization [facility] - [facility] Address [address] [place] [address]. [place] [address] [place] [address] Care Team Providers Care Powerhouse Attendant Name Role Phone Unavailable Primary Care Provider Unavailabl e Encounter Details Date Type Department Care Team (Late st Contact Info) Description 08/19/2016 Orders Only ANY CONVERSION ONE [place], [place] [id number] , Generic Conversion, Social History Tobacco Use [...] GLUCOSE - MCCORMICK DOCKED DEVICE Routine 08/19/2016 10:54 AM CDT documented in this encounter Results * (ABNORMAL) POCT glucose (08/19/2016 10:54 AM CDT) GLUCOSE POC 217(H) 70 - 109 08/19/2016 10:14 AM CDT [facility] LAB ORDERS INTERFACE WHOLE BLOOD SPECIMEN / Unknown 08/19/2016 10:54 AM CDT 08/19/2016 10:14 AM CDT us Generic Conversion Md PASTRANA POCT ORDERABLES - DEVIC E Final Result [facility] ORDERS INTERFACE US documented in this encounter Visit Diagnoses Not on filedocumented in this encounter
--- OUTSIDE RECORDS SUMMARY | 2024-05-10 18:17 | XMS_ITS | Encounter Summary ---
Author Organization [facility] - [facility] Address [address] [place] [address]. [place] [address] [place] [address] Care Team Providers Care Ceramic Engineer Name Role Phone Unavailable Primary Care Provider Unavailabl e Encounter Details Date Type Department Care Team (Late st Contact Info) Description 07/21/2016 Orders Only ANY CONVERSION ONE [place], [place] [id number] , Generic Conversion, Social History Tobacco Use [...] GLUCOSE - MCCORMICK DOCKED DEVICE Routine 07/21/2016 9:32 AM CDT documented in this encounter Results * (ABNORMAL) POCT glucose (07/21/2016 9:32 AM CDT) GLUCOSE POC 211(H) 70 - 109 07/21/2016 8:35 AM CDT [facility] LAB ORDERS INTERFACE WHOLE BLOOD SPECIMEN / Unknown 07/21/2016 9:32 AM CDT 07/21/2016 8:35 AM CDT us Generic Conversion Md PASTRANA POCT ORDERABLES - DEVIC E Final Result [facility] ORDERS INTERFACE US documented in this encounter Visit Diagnoses Not on filedocumented in this encounter
--- OUTSIDE RECORDS SUMMARY | 2024-05-10 18:17 | XMS_ITS | Encounter Summary ---
Author Organization [facility] - [facility] Address [address] [place] [address]. [place] [address] [place] [address] Care Team Providers Care Hedge Fund Trader Name Role Phone Unavailable Primary Care Provider Unavailabl e Encounter Details Date Type Department Care Team (Late st Contact Info) Description 08/19/2016 Orders Only ANY CONVERSION ONE [place], [place] [id number] , Generic Conversion, Social History Tobacco Use [...] GLUCOSE - MCCORMICK DOCKED DEVICE Routine 08/19/2016 12:05 PM CDT documented in this encounter Results * (ABNORMAL) POCT glucose (08/19/2016 12:05 PM CDT) GLUCOSE POC 228(H) 70 - 109 08/19/2016 11:09 AM CDT [facility] LAB ORDERS INTERFACE WHOLE BLOOD SPECIMEN / Unknown 08/19/2016 12:05 PM CDT 08/19/2016 11:09 AM CDT us Generic Conversion Md PASTRANA POCT ORDERABLES - DEVIC E Final Result [facility] LAB ORDERS INTERFACE US documented in this encounter Visit Diagnoses Not on filedocumented in this encounter
--- OUTSIDE RECORDS SUMMARY | 2024-05-10 18:17 | XMS_ITS | Encounter Summary ---
Author Organization [facility] - [facility] Address [address] [place] [address]. [place] [address] [place] [address] Care Team Providers Care Sales Service Route Manager Name Role Phone Unavailable Primary Care Provider Unavailabl e Encounter Details Date Type Department Care Team (Late st Contact Info) Description 08/19/2016 Orders Only ANY CONVERSION ONE [place], [place] [id number] , Generic Conversion, Social History Tobacco Use [...] GLUCOSE - MCCORMICK DOCKED DEVICE Routine 08/19/2016 7:42 PM CDT documented in this encounter Results * (ABNORMAL) POCT glucose (08/19/2016 7:42 PM CDT) GLUCOSE POC 123(H) 70 - 109 08/19/2016 6:46 PM CDT [facility] LAB ORDERS INTERFACE WHOLE BLOOD SPECIMEN / Unknown 08/19/2016 7:42 PM CDT 08/19/2016 6:46 PM CDT us Generic Conversion Md PASTRANA POCT ORDERABLES - DEVIC E Final Result [facility] LAB ORDERS INTERFACE US documented in this encounter Visit Diagnoses Not on filedocumented in this encounter
--- OUTSIDE RECORDS SUMMARY | 2024-05-10 18:17 | XMS_ITS | Encounter Summary ---
Author Organization [facility] - [facility] Address [address] [place] [address]. [place] [address] [place] [address] Care Team Providers Care Operations And Maintenance Specialist Name Role Phone Unavailable Primary Care Provider Unavailabl e Encounter Details Date Type Department Care Team (Late st Contact Info) Description 07/22/2016 Orders Only [place] [address] , Generic Conversion, Social History Tobacco Use [...] GLUCOSE - MCCORMICK DOCKED DEVICE Routine 07/22/2016 2:04 PM CDT documented in this encounter Results * (ABNORMAL) POCT glucose (07/22/2016 2:04 PM CDT) GLUCOSE POC 142(H) 70 - 109 07/22/2016 1:08 PM CDT [facility] ORDERS INTERFACE WHOLE BLOOD SPECIMEN / Unknown 07/22/2016 2:04 PM CDT 07/22/2016 1:07 PM CDT us Generic Conversion Md PASTRANA POCT ORDERABLES - DEVIC E Final Result [facility] ORDERS INTERFACE US documented in this encounter Visit Diagnoses Not on filedocumented in this encounter
--- OUTSIDE RECORDS SUMMARY | 2024-05-10 18:17 | XMS_ITS | Encounter Summary ---
Author Organization [facility] - [facility] Address [address] [place] [address]. [place] [address] [place] [address] Care Team Providers Care Lens Grinder And Polisher Name Role Phone Unavailable Primary Care Provider Unavailabl e Encounter Details Date Type Department Care Team (Late st Contact Info) Description 07/22/2016 Orders [place] [address] , Generic Conversion, Social History Tobacco Use [...] GLUCOSE - MCCORMICK DOCKED DEVICE Routine 07/22/2016 4:27 PM CDT documented in this encounter Results * (ABNORMAL) POCT glucose (07/22/2016 4:27 PM CDT) GLUCOSE POC 59(L) 70 - 109 07/22/2016 3:31 PM CDT [facility] LAB ORDERS INTERFACE WHOLE BLOOD SPECIMEN / Unknown 07/22/2016 4:27 PM CDT 07/22/2016 3:30 PM CDT us Generic Conversion Md PASTRANA POCT ORDERABLES - DEVIC E Final Result [facility] ORDERS INTERFACE US documented in this encounter Visit Diagnoses Not on filedocumented in this encounter
--- OUTSIDE RECORDS SUMMARY | 2024-05-10 18:17 | XMS_ITS | Encounter Summary ---
Author Organization [facility] - [facility] Address [address] [place] [address]. [place] [address] [place] [address] Care Team Providers Care Bank Messenger Name Role Phone Unavailable Primary Care Provider Unavailabl e Encounter Details Date Type Department Care Team (Late st Contact Info) Description 07/23/2016 Orders Only ANY CONVERSION ONE [place], [place] [id number] , Generic Conversion, Social History Tobacco Use [...] GLUCOSE - MCCORMICK DOCKED DEVICE Routine 07/23/2016 5:40 AM CDT documented in this encounter Results * POCT glucose (07/23/2016 5:40 AM CDT) GLUCOSE POC 76 70 - 109 07/23/2016 4:41 AM CDT [facility] LAB ORDERS INTERFACE WHOLE BLOOD SPECIMEN / Unknown 07/23/2016 5:40 AM CDT 07/23/2016 4:41 AM CDT us Generic Conversion Md PASTRANA POCT ORDERABLES - DEVIC E Final Result [facility] LAB ORDERS INTERFACE US documented in this encounter Visit Diagnoses Not on filedocumented in this encounter
--- OUTSIDE RECORDS SUMMARY | 2024-05-10 18:17 | XMS_ITS | Encounter Summary ---
Author Organization [facility] Address [address] [place] [address]. [place] [address] [place] [address] Care Team Providers Care Middle School Humanities Teacher Name Role Phone Unavailable Primary Care Provider Unavailabl e Encounter Details Date Type Department Care Team (Late st Contact Info) Description 08/19/2016 Orders [place] [address] , Generic Conversion, Social History [...] Diagnosis Comments BASIC METABOLIC PANEL TIMED 08/19/2016 7:58 PM CDT documented in this encounter Results * (ABNORMAL) BASIC METABOLIC PANEL (08/19/2016 7:58 PM CDT) SODIUM S/P/B 133(L) 135 - 147 MMOL/L 08/19/2016 7:33 PM CDT [facility] POTASSIUM S/P/B 4.6 3.5 - 5.0 MMOL/L 08/19/2016 7:33 PM CDT [facility] CHLORIDE S/P/B 114(H) 98 - 107 MMOL/L 08/19/2016 7:33 PM CDT [facility] CO2 13.6(L) 22 - 29 MMOL/L 08/19/2016 7:33 PM CDT [facility] GLUCOSE 123(H) 70 - 109 MG/DL 08/19/2016 7:33 PM CDT [facility] BUN 5(L) 7 - 19 MG/DL 08/19/2016 7:33 PM CDT [facility] CREATININE S/P/B 0.63 0.60 - 1.10 MG/DL 08/19/2016 7:33 PM CDT [facility] CALCIUM S/P/B 8.3(L) 8.4 - 10.2 MG/DL 08/19/2016 7:33 PM CDT [facility] EGFR NON-AFR. AMER. 120 >60 ML/MIN/1.7 3 M2 08/19/2016 7:33 PM CDT [facility] EGFR AFR. AMER. 146 >60 ML/MIN/1.7 3 M2 08/19/2016 7:33 PM CDT [facility] ANION GAP 5.4 MMOL/L 08/19/2016 7:33 PM CDT [facility] OSMOLALITY (CALC) 265 MOSM/KG 08/19/2016 7:33 PM CDT [facility] PLASMA SPECIMEN / Unknown 08/19/2016 7:58 PM CDT 08/19/2016 6:59 PM CDT us Generic Conversion Md PA[facility] LABORATORY Final R esult [facility] [address] [place] [address], [id number] documented in this encounter Visit Diagnoses Not on filedocumented in this encounter
--- OUTSIDE RECORDS SUMMARY | 2024-05-10 18:17 | XMS_ITS | Encounter Summary ---
Author Organization [facility] - [facility] Address [address] [place] [address]. [place] [address] [place] [address] Care Team Providers Care Automobile Body Worker Name Role Phone Unavailable Primary Care Provider Unavailabl e Encounter Details Date Type Department Care Team (Late st Contact Info) Description 07/21/2016 Orders Only ANY CONVERSION ONE [place], [place] [id number] , Generic Conversion, Social History Tobacco Use [...] GLUCOSE - MCCORMICK DOCKED DEVICE Routine 07/21/2016 12:37 PM CDT documented in this encounter Results * (ABNORMAL) POCT glucose (07/21/2016 12:37 PM CDT) GLUCOSE POC 202(H) 70 - 109 07/21/2016 11:39 AM CDT [facility] LAB ORDERS INTERFACE WHOLE BLOOD SPECIMEN / Unknown 07/21/2016 12:37 PM CDT 07/21/2016 11:39 AM CDT us Generic Conversion Md PASTRANA POCT ORDERABLES - DEVIC E Final Result [facility] ORDERS INTERFACE US documented in this encounter Visit Diagnoses Not on filedocumented in this encounter
--- OUTSIDE RECORDS SUMMARY | 2024-05-10 18:17 | XMS_ITS | Encounter Summary ---
Author Organization [facility] Address [address] [place] [address]. [place] [address] [place] [address] Care Team Providers Care Tree Trimming Supervisor Name Role Phone Unavailable Primary Care Provider Unavailabl e Encounter Details Date Type Department Care Team (Late st Contact Info) Description 08/19/2016 Orders Only [place] [address] , Generic Conversion, Social History [...] Diagnosis Comments BASIC METABOLIC PANEL TIMED 08/19/2016 4:01 PM CDT documented in this encounter Results * (ABNORMAL) BASIC METABOLIC PANEL (08/19/2016 4:01 PM CDT) SODIUM S/P/B 132(L) 135 - 147 MMOL/L 08/19/2016 3:38 PM CDT [facility] POTASSIUM S/P/B 4.7 3.5 - 5.0 MMOL/L 08/19/2016 3:38 PM CDT [facility] CHLORIDE S/P/B 112(H) 98 - 107 MMOL/L 08/19/2016 3:38 PM CDT [facility] CO2 12.2(L) 22 - 29 MMOL/L 08/19/2016 3:38 PM CDT [facility] GLUCOSE 181(H) 70 - 109 MG/DL 08/19/2016 3:38 PM CDT [facility] BUN 7 7 - 19 MG/DL 08/19/2016 3:38 PM CDT [facility] CREATININE S/P/B 0.66 0.60 - 1.10 MG/DL 08/19/2016 3:38 PM CDT [facility] CALCIUM S/P/B 8.5 8.4 - 10.2 MG/DL 08/19/2016 3:38 PM CDT [facility] EGFR NON-AFR. AMER. 114 >60 ML/MIN/1.7 3 M2 08/19/2016 3:38 PM CDT [facility] EGFR AFR. AMER. 138 >60 ML/MIN/1.7 3 M2 08/19/2016 3:38 PM CDT [facility] ANION GAP 7.8 MMOL/L 08/19/2016 3:38 PM CDT [facility] OSMOLALITY (CALC) 267 MOSM/KG 08/19/2016 3:38 PM CDT [facility] PLASMA SPECIMEN / Unknown 08/19/2016 4:01 PM CDT 08/19/2016 3:02 PM CDT us Generic Conversion Md PASTRANA LABORATORY Final R esult [facility] [address] [place] [address], [id number] documented in this encounter Visit Diagnoses Not on filedocumented in this encounter
--- OUTSIDE RECORDS SUMMARY | 2024-05-10 18:17 | XMS_ITS | Encounter Summary ---
Author Organization [facility] - [facility] Address [address] [place] [address]. [id number] Care Team Providers Care Deputy Manager Name Role Phone Unavailable Primary Care Provider Unavailabl e Encounter Details Date Type Department Care Team (Late st Contact Info) Description 07/21/2016 Orders Only ANY CONVERSION ONE [place], [place] [id number] , Generic Conversion, Social History Tobacco Use [...] GLUCOSE - MCCORMICK DOCKED DEVICE Routine 07/21/2016 7:26 AM CDT documented in this encounter Results * (ABNORMAL) POCT glucose (07/21/2016 7:26 AM CDT) GLUCOSE POC 243(H) 70 - 109 07/21/2016 6:28 AM CDT [facility] LAB ORDERS INTERFACE WHOLE BLOOD SPECIMEN / Unknown 07/21/2016 7:26 AM CDT 07/21/2016 6:28 AM CDT us Generic Conversion Md PASTRANA POCT ORDERABLES - DEVIC E Final Result [facility] LAB ORDERS INTERFACE US documented in this encounter Visit Diagnoses Not on filedocumented in this encounter
--- OUTSIDE RECORDS SUMMARY | 2024-05-10 18:17 | XMS_ITS | Encounter Summary ---
Author Organization [facility] - [facility] Address [address] [place] [address]. [place] [address] [place] [address] Care Team Providers Care Photographer Apprentice Name Role Phone Unavailable Primary Care Provider Unavailabl e Encounter Details Date Type Department Care Team (Late st Contact Info) Description 07/21/2016 Orders Only ANY CONVERSION ONE [place], [place] [id number] , Generic Conversion, Social History Tobacco Use [...] GLUCOSE - MCCORMICK DOCKED DEVICE Routine 07/21/2016 9:38 PM CDT documented in this encounter Results * (ABNORMAL) POCT glucose (07/21/2016 9:38 PM CDT) GLUCOSE POC 137(H) 70 - 109 07/21/2016 8:41 PM CDT [facility] LAB ORDERS INTERFACE WHOLE BLOOD SPECIMEN / Unknown 07/21/2016 9:38 PM CDT 07/21/2016 8:41 PM CDT us Generic Conversion Md PASTRANA POCT ORDERABLES - DEVIC E Final Result [facility] ORDERS INTERFACE US documented in this encounter Visit Diagnoses Not on filedocumented in this encounter
--- OUTSIDE RECORDS SUMMARY | 2024-05-10 18:17 | XMS_ITS | Encounter Summary ---
Author Organization [facility] Address [address] [place] [address]. [place] [address] [place] [address] Care Team Providers Care Land Surveying Manager Name Role Phone Unavailable Primary Care Provider Unavailabl e Encounter Details Date Type Department Care Team (Late st Contact Info) Description 08/19/2016 Orders [place] [address] , Generic Conversion, Social History [...] Associated Diagnosis Comments CBC W/DIFF AUTOMATED STAT 08/19/2016 7:20 AM CDT documented in this encounter Results * (ABNORMAL) CBC W/DIFF AUTOMATED (08/19/2016 7:20 AM CDT) WBC 12.7(H) 4.0 - 10.8 x10'3/uL 08/19/2016 6:31 AM CDT [facility] RBC 4.62 4.10 - 5.40 x10'6/uL 08/19/2016 6:31 AM CDT [facility] HGB 13.8 12.0 - 16.0 G/DL 08/19/2016 6:31 AM CDT [facility] HCT 39.8 36.0 - 47.0 % 08/19/2016 6:31 AM CDT [facility] MCV 86.1 78.0 - 100.0 FL 08/19/2016 6:31 AM CDT [facility] MCH 29.9 27.0 - 31.0 PG 08/19/2016 6:31 AM CDT [facility] MCHC 34.7 33.0 - 36.0 G/DL 08/19/2016 6:31 AM CDT [facility] RDW 12.4 11.5 - 14.5 % 08/19/2016 6:31 AM CDT [facility] PLT 341 150 - 350 x10'3/uL 08/19/2016 6:31 AM CDT [facility] MPV 9.3 7.4 - 10.4 FL 08/19/2016 6:31 AM CDT [facility] ABS. NEUTROPHILS TOTAL 10.30(H) 1.60 - 8.30 x10'3/uL 08/19/2016 6:31 AM CDT [facility] ABS. LYMPHOCYTES 1.76 0.80 - 4.70 x10'3/uL 08/19/2016 6:31 AM CDT [facility] ABS. MONOCYTES 0.49 0.00 - 1.50 x10'3/uL 08/19/2016 6:31 AM CDT [facility] ABS. EOSINOPHILS 0.00 0.00 - 0.40 x10'3/uL 08/19/2016 6:31 AM CDT [facility] ABS. BASOPHILS 0.03 0.00 - 0.20 x10'3/uL 08/19/2016 6:31 AM CDT [facility] ABS. IMMATURE GRANULOCYTES 0.13(H) 0.00 - 0.03 x10'3/uL 08/19/2016 6:31 AM CDT [facility] ABS. NUCLEATED RBC'S 0.00 0.0 x10'3/uL 08/19/2016 6:31 AM CDT [facility] PLASMA SPECIMEN / Unknown 08/19/2016 7:20 AM CDT 08/19/2016 6:24 AM CDT us Generic Conversion Md [facility] LABORAT[facility] Final R esult Performing Organization Address City/State/[facility] Co de Phone Number [facility] [address] [place] [address], [id number] documented in this encounter Visit Diagnoses Not on filedocumented in this encounter
--- OUTSIDE RECORDS SUMMARY | 2024-05-10 18:17 | XMS_ITS | Encounter Summary ---
Author Organization [facility] - [facility] Address [address] [place] [address]. [place] [address] [place] [address] Care Team Providers Care Still Operator Batch Or Continuous Name Role Phone Unavailable Primary Care Provider Unavailabl e Encounter Details Date Type Department Care Team (Late st Contact Info) Description 07/21/2016 Orders [place] [address] , Generic Conversion, Social History Tobacco Use [...] Date/Time Associated Diagnosis Comments POCT GLUCOSE - MCCROMICK DOCKED DEVICE Routine 07/21/2016 10:03 AM CDT documented in this encounter Results * (ABNORMAL) POCT glucose (07/21/2016 10:03 AM CDT) GLUCOSE POC 224(H) 70 - 109 07/21/2016 9:06 AM CDT [facility] ORDERS INTERFACE WHOLE BLOOD SPECIMEN / Unknown 07/21/2016 10:03 AM CDT 07/21/2016 9:06 AM CDT us Generic Conversion Md PASTRANA POCT ORDERABLES - DEVIC E Final Result [facility] ORDERS INTERFACE US documented in this encounter Visit Diagnoses Not on filedocumented in this encounter
--- OUTSIDE RECORDS SUMMARY | 2024-05-10 18:17 | XMS_ITS | Encounter Summary ---
Author Organization [facility] - [facility] Address [address] [place] [address]. [place] [address] [place] [address] Care Team Providers Care Loan Review Officer Name Role Phone Unavailable Primary Care Provider Unavailabl e Encounter Details Date Type Department Care Team (Late st Contact Info) Description 07/21/2016 Orders Only [place] [address] , Generic Conversion, Social History Tobacco Use [...] GLUCOSE - MCCORMICK DOCKED DEVICE Routine 07/21/2016 6:31 AM CDT documented in this encounter Results * (ABNORMAL) POCT glucose (07/21/2016 6:31 AM CDT) GLUCOSE POC 255(H) 70 - 109 07/21/2016 6:06 AM CDT [facility] ORDERS INTERFACE WHOLE BLOOD SPECIMEN / Unknown 07/21/2016 6:31 AM CDT 07/21/2016 6:06 AM CDT us Generic Conversion Md PASTRANA POCT ORDERABLES - DEVIC E Final Result [facility] ORDERS INTERFACE US documented in this encounter Visit Diagnoses Not on filedocumented in this encounter
--- OUTSIDE RECORDS SUMMARY | 2024-05-10 18:17 | XMS_ITS | Encounter Summary ---
Author Organization [facility] - [facility] Address [address] [place] [address]. [place] [address] [place] [address] Care Team Providers Care Preventive Maintenance Coordinator Name Role Phone Unavailable Primary Care Provider Unavailabl e Encounter Details Date Type Department Care Team (Late st Contact Info) Description 08/19/2016 Orders Only ANY CONVERSION ONE [place], [place] [id number] , Generic Conversion, Social History Tobacco Use [...] GLUCOSE - MCCORMICK DOCKED DEVICE Routine 08/19/2016 3:19 PM CDT documented in this encounter Results * (ABNORMAL) POCT glucose (08/19/2016 3:19 PM CDT) GLUCOSE POC 202(H) 70 - 109 08/19/2016 2:26 PM CDT [facility] ORDERS INTERFACE WHOLE BLOOD SPECIMEN / Unknown 08/19/2016 3:19 PM CDT 08/19/2016 2:26 PM CDT us Generic Conversion Md PASTRANA POCT ORDERABLES - DEVIC E Final Result [facility] ORDERS INTERFACE US documented in this encounter Visit Diagnoses Not on filedocumented in this encounter
--- OUTSIDE RECORDS SUMMARY | 2024-05-10 18:17 | XMS_ITS | Encounter Summary ---
Author Organization [facility] Address [address] [place] [address]. [place] [address] [place] [address] Care Team Providers Care Principal Technical Architect Name Role Phone Unavailable Primary Care Provider Unavailabl e Encounter Details Date Type Department Care Team (Late st Contact Info) Description 07/21/2016 Orders Only ANY CONVERSION ONE [place], [place] [id number] , Generic Conversion, Social History Tobacco Use [...] Date/Time Associated Diagnosis Comments BETA-HYDROXYBUTYRAT E STAT 07/21/2016 3:49 AM CDT documented in this encounter Results * (ABNORMAL) BETA-HYDROXYBUTYRATE (07/21/2016 3:49 AM CDT) BETA-HYDROXYBU TYRATE 1.8(H) 0.0 - 0.3 MMOL/L 07/21/2016 3:02 AM CDT [facility] SERUM OR PLASMA SPECIMEN / Unknown 07/21/2016 3:49 AM CDT 07/21/2016 2:54 AM CDT us Generic Conversion Md [facility] Final R esult [facility] [address] [place] [address], [id number] documented in this encounter Visit Diagnoses Not on filedocumented in this encounter
--- OUTSIDE RECORDS SUMMARY | 2024-05-10 18:17 | XMS_ITS | Encounter Summary ---
Author Organization [facility] - [facility] Address [address] [place] [address]. [place] [address] [place] [address] Care Team Providers Care Panama Hat Hydraulic Press Operator Name Role Phone Unavailable Primary Care Provider Unavailabl e Encounter Details Date Type Department Care Team (Late st Contact Info) Description 07/22/2016 Orders Only ANY CONVERSION ONE [place], [place] [id number] , Generic Conversion, Social History Tobacco Use [...] GLUCOSE - MCCORMICK DOCKED DEVICE Routine 07/22/2016 11:49 AM CDT documented in this encounter Results * POCT glucose (07/22/2016 11:49 AM CDT) GLUCOSE POC 92 70 - 109 07/22/2016 10:59 AM CDT [facility] LAB ORDERS INTERFACE WHOLE BLOOD SPECIMEN / Unknown 07/22/2016 11:49 AM CDT 07/22/2016 10:59 AM CDT us Generic Conversion Md PASTRANA POCT ORDERABLES - DEVIC E Final Result [facility] LAB ORDERS INTERFACE US documented in this encounter Visit Diagnoses Not on filedocumented in this encounter
--- OUTSIDE RECORDS SUMMARY | 2024-05-10 18:17 | XMS_ITS | Encounter Summary ---
Author Organization [facility] Address [address] [place] [address]. [place] [address] [place] [address] Care Team Providers Care Electronics Worker Name Role Phone Unavailable Primary Care Provider Unavailabl e Encounter Details Date Type Department Care Team (Late st Contact Info) Description 08/19/2016 [place] [address] , Generic Conversion, Social History [...] Diagnosis Comments BASIC METABOLIC PANEL TIMED 08/19/2016 2:19 PM CDT documented in this encounter Results * (ABNORMAL) BASIC METABOLIC PANEL (08/19/2016 2:19 PM CDT) SODIUM S/P/B 133(L) 135 - 147 MMOL/L 08/19/2016 1:48 PM CDT [facility] POTASSIUM S/P/B 4.5 3.5 - 5.0 MMOL/L 08/19/2016 1:48 PM CDT [facility] CHLORIDE S/P/B 113(H) 98 - 107 MMOL/L 08/19/2016 1:48 PM CDT [facility] CO2 9.2(LL) 22 - 29 MMOL/L 08/19/2016 1:51 PM CDT [facility] Comment:Critical results bety led to and read back by MARY POND AT 1450.SB GLUCOSE 196(H) 70 - 109 MG/DL 08/19/2016 1:48 PM CDT [facility] BUN 7 7 - 19 MG/DL 08/19/2016 1:48 PM CDT [facility] CREATININE S/P/B 0.67 0.60 - 1.10 MG/DL 08/19/2016 1:48 PM CDT [facility] CALCIUM S/P/B 8.6 8.4 - 10.2 MG/DL 08/19/2016 1:48 PM CDT [facility] EGFR NON-AFR. AMER. 112 >60 ML/MIN/1.7 3 M2 08/19/2016 1:48 PM CDT [facility] EGFR AFR. AMER. 136 >60 ML/MIN/1.7 3 M2 08/19/2016 1:48 PM CDT [facility] ANION GAP 10.8 MMOL/L 08/19/2016 1:51 PM CDT [facility] OSMOLALITY (CALC) 270 MOSM/KG 08/19/2016 1:48 PM CDT [facility] PLASMA SPECIMEN / Unknown 08/19/2016 2:19 PM CDT 08/19/2016 1:20 PM CDT us Generic Conversion Md [facility] LABORATORY Final R esult [facility] [address] [place] [address], [id number] documented in this encounter Visit Diagnoses Not on filedocumented in this encounter
--- OUTSIDE RECORDS SUMMARY | 2024-05-10 18:17 | XMS_ITS | Encounter Summary ---
Author Organization [facility] - [facility] Address [address] [place] [address]. [place] [address] [place] [address] Care Team Providers Care Architectural Draftsman Name Role Phone Unavailable Primary Care Provider Unavailabl e Encounter Details Date Type Department Care Team (Late st Contact Info) Description 07/23/2016 Orders [place] [address] , Generic Conversion, Social History Tobacco Use [...] GLUCOSE - MCCORMICK DOCKED DEVICE Routine 07/23/2016 3:03 AM CDT documented in this encounter Results * POCT glucose (07/23/2016 3:03 AM CDT) GLUCOSE POC 95 70 - 109 07/23/2016 2:04 AM CDT [facility] LAB ORDERS INTERFACE WHOLE BLOOD SPECIMEN / Unknown 07/23/2016 3:03 AM CDT 07/23/2016 2:04 AM CDT us Generic Conversion Md PASTRANA POCT ORDERABLES - DEVIC E Final Result [facility] LAB ORDERS INTERFACE US documented in this encounter Visit Diagnoses Not on filedocumented in this encounter
--- OUTSIDE RECORDS SUMMARY | 2024-05-10 18:17 | XMS_ITS | Encounter Summary ---
Author Organization [facility] Address [address] [place] [address]. [place] [address] [place] [address] Care Team Providers Care Food Service Specialist Name Role Phone Unavailable Primary Care Provider Unavailabl e Encounter Details Date Type Department Care Team (Latest Contact Info) Description 07/29/2016 Abstract [facility] Social History Tobacco Use [...]
--- OUTSIDE RECORDS SUMMARY | 2024-05-10 18:17 | XMS_ITS | Encounter Summary ---
Author Organization [facility] Address [address] [place] [address]. [place] [address] [place] [address] Care Team Providers Care Data Warehouse Consultant Name Role Phone Unavailable Primary Care Provider Unavailabl e Encounter Details Date Type Department Care Team (Late st Contact Info) Description 07/21/2016 Orders [place] [address] , Generic Conversion, Social History [...] Date/Time Associated Diagnosis Comments BASIC METABOLIC PANEL NOW 07/21/2016 8:01 PM CDT documented in this encounter Results * (ABNORMAL) BASIC METABOLIC PANEL (07/21/2016 8:01 PM CDT) SODIUM S/P/B 138 135 - 147 MMOL/L 07/21/2016 7:34 PM CDT [facility] POTASSIUM S/P/B 3.9 3.5 - 5.0 MMOL/L 07/21/2016 7:34 PM CDT [facility] Comment:SLIGHT HEMOLYSIS, RE SULT MAY BE AFFECTED. CHLORIDE S/P/B 111(H) 98 - 107 MMOL/L 07/21/2016 7:34 PM CDT [facility] CO2 18.3(L) 22 - 29 MMOL/L 07/21/2016 7:34 PM CDT [facility] GLUCOSE 142(H) 70 - 109 MG/DL 07/21/2016 7:34 PM CDT [facility] BUN 4(L) 7 - 19 MG/DL 07/21/2016 7:34 PM CDT [facility] CREATININE S/P/B 0.49(L) 0.60 - 1.10 MG/DL 07/21/2016 7:34 PM CDT [facility] CALCIUM S/P/B 7.6(L) 8.4 - 10.2 MG/DL 07/21/2016 7:34 PM CDT [facility] EGFR NON-AFR. AMER. 161 >60 ML/MIN/1.7 3 M2 07/21/2016 7:34 PM CDT [facility] EGFR AFR. AMER. 195 >60 ML/MIN/1.7 3 M2 07/21/2016 7:34 PM CDT [facility] ANION GAP 8.7 MMOL/L 07/21/2016 7:34 PM CDT [facility] OSMOLALITY (CALC) 275 MOSM/KG 07/21/2016 7:34 PM CDT [facility] PLASMA SPECIMEN / Unknown 07/21/2016 8:01 PM CDT 07/21/2016 7:03 PM CDT us Generic Conversion Md [facility] LABORAT[facility] Final R esult [facility] [address] [place] [address], [id number] documented in this encounter Visit Diagnoses Not on filedocumented in this encounter
--- OUTSIDE RECORDS SUMMARY | 2024-05-10 18:17 | XMS_ITS | Encounter Summary ---
Author Organization [facility] Address [address] [place] [address]. [place] [address] [place] [address] Care Team Providers Care Chair Pad Maker Name Role Phone Unavailable Primary Care Provider Unavailabl e Encounter Details Date Type Department Care Team (Late st Contact Info) Description 08/19/2016 Orders Only [place] [address] , Generic Conversion, Social History [...] Diagnosis Comments BLOOD GAS, ARTERIAL LAB STAT 08/19/2016 7:21 AM CDT documented in this encounter Results * (ABNORMAL) ARTERIAL BLOOD GAS (08/19/2016 7:21 AM CDT) PH ARTERIAL 7.26(L) 7.35 - 7.45 08/19/2016 6:41 AM CDT [facility] PCO2 22.0(L) 35 - 45 MMHG 08/19/2016 6:41 AM CDT [facility] PO2 62.3(L) 80 - 90 MMHG 08/19/2016 6:41 AM CDT [facility] BICARB ARTERIAL 9.6(L) 22 - 26 MMOL/L 08/19/2016 6:41 AM CDT [facility] TCO2 10.2(L) 23 - 27 MMOL/L 08/19/2016 6:41 AM CDT [facility] BASE DEFICIT 15.9(H) 0 - 2 MMOL/L 08/19/2016 6:41 AM CDT [facility] CARBONIC ACID ARTERIAL 0.6 MMOL/L 08/19/2016 6:41 AM CDT [facility] LITER FLOW ROOM AIR L/M 08/19/2016 6:41 AM CDT [facility] OXYGEN STATUS ROOM AIR 08/19/2016 6:41 AM CDT [facility] 08/19/2016 7:21 AM CDT 08/19/2016 6:24 AM CDT us Generic Conversion Md [facility] LABORAT[facility] Final R esult [facility] [address] [place] [address], [id number] documented in this encounter Visit Diagnoses Not on filedocumented in this encounter
--- OUTSIDE RECORDS SUMMARY | 2024-05-10 18:17 | XMS_ITS | Encounter Summary ---
Author Organization [facility] Address [address] [place] [address]. [place] [address] [place] [address] Care Team Providers Care Sewer Builder Name Role Phone Unavailable Primary Care Provider Unavailabl e Encounter Details Date Type Department Care Team (Late st Contact Info) Description 07/23/2016 Orders [place] [address] , Generic Conversion, Social History Tobacco Use [...] GLUCOSE - MCCORMICK DOCKED DEVICE Routine 07/23/2016 1:21 AM CDT documented in this encounter Results * (ABNORMAL) POCT glucose (07/23/2016 1:21 AM CDT) GLUCOSE POC 56(L) 70 - 109 07/23/2016 12:57 AM CDT [facility] ORDERS INTERFACE WHOLE BLOOD SPECIMEN / Unknown 07/23/2016 1:21 AM CDT 07/23/2016 12:57 AM CDT us Generic Conversion Md PASTRANA POCT ORDERABLES - DEVIC E Final Result [facility] LAB ORDERS INTERFACE US documented in this encounter Visit Diagnoses Not on filedocumented in this encounter
--- OUTSIDE RECORDS SUMMARY | 2024-05-10 18:17 | XMS_ITS | Encounter Summary ---
Author Organization [facility] Address [address] [place] [address]. [place] [address] [place] [address] Care Team Providers Care Chauffeur Airport Limousine Name Role Phone Unavailable Primary Care Provider Unavailabl e Encounter Details Date Type Department Care Team (Late st Contact Info) Description 07/21/2016 Orders Only ANY CONVERSION ONE [place], [place] [id number] , Generic Conversion, Social History Tobacco Use [...] GLUCOSE - MCCORMICK DOCKED DEVICE Routine 07/21/2016 12:04 PM CDT documented in this encounter Results * (ABNORMAL) POCT glucose (07/21/2016 12:04 PM CDT) GLUCOSE POC 201(H) 70 - 109 07/21/2016 11:14 AM CDT [facility] LAB ORDERS INTERFACE WHOLE BLOOD SPECIMEN / Unknown 07/21/2016 12:04 PM CDT 07/21/2016 11:14 AM CDT us Generic Conversion Md PASTRANA POCT ORDERABLES - DEVIC E Final Result [facility] LAB ORDERS INTERFACE US documented in this encounter Visit Diagnoses Not on filedocumented in this encounter
--- OUTSIDE RECORDS SUMMARY | 2024-05-10 18:17 | XMS_ITS | Encounter Summary ---
Author Organization [facility] Address [address] [place] [address]. [place] [address] [place] [address] Care Team Providers Care Gear Repair Supervisor Name Role Phone Unavailable Primary Care Provider Unavailabl e Encounter Details Date Type Department Care Team (Late st Contact Info) Description 07/21/2016 Orders Only ANY CONVERSION ONE [place], [place] [id number] , Generic Conversion, Social History Tobacco Use [...] GLUCOSE - MCCORMICK DOCKED DEVICE Routine 07/21/2016 6:42 PM CDT documented in this encounter Results * POCT glucose (07/21/2016 6:42 PM CDT) GLUCOSE POC 71 70 - 109 07/21/2016 5:46 PM CDT [facility] LAB ORDERS INTERFACE WHOLE BLOOD SPECIMEN / Unknown 07/21/2016 6:42 PM CDT 07/21/2016 5:46 PM CDT us Generic Conversion Md PASTRANA POCT ORDERABLES - DEVIC E Final Result [facility] LAB ORDERS INTERFACE US documented in this encounter Visit Diagnoses Not on filedocumented in this encounter
--- OUTSIDE RECORDS SUMMARY | 2024-05-10 18:17 | XMS_ITS | Encounter Summary ---
Author Organization [facility] Address [address] [place] [address]. [place] [address] [place] [address] Care Team Providers Care User Experience Designer Name Role Phone Unavailable Primary Care Provider Unavailabl e Encounter Details Date Type Department Care Team (Late st Contact Info) Description 07/21/2016 Orders Only ANY CONVERSION ONE [place], [place] [id number] , Generic Conversion, Social History Tobacco Use [...] Associated Diagnosis Comments TYPE & SCREEN NOW 07/21/2016 6:10 AM CDT documented in this encounter Results * TYPE & SCREEN (07/21/2016 6:10 AM CDT) ABO/RH O POSITIVE 07/21/2016 6:36 AM CDT [facility] ANTIBODY SCREEN NEGATIVE 7 6:36 AM CDT [facility] SAMPLE EXPIRATION 07/24/2016 07/21/2016 5:34 AM CDT [facility] 07/21/2016 6:10 AM CDT 07/21/2016 5:33 AM CDT us Generic Conversion Md PASTRANA BLOOD BANK TEST ORDERAB LES Final Result [facility] [address] [place] [address], [id number] documented in this encounter Visit Diagnoses Not on filedocumented in this encounter
--- OUTSIDE RECORDS SUMMARY | 2024-05-10 18:17 | XMS_ITS | Encounter Summary ---
Author Organization [facility] Address [address] [place] [address]. [place] [address] [place] [address] Care Team Providers Care Expeller Worker Name Role Phone Unavailable Primary Care Provider Unavailabl e Encounter Details Date Type Department Care Team (Late st Contact Info) Description 07/21/2016 Orders [place] [address] , Generic Conversion, Social History [...] Associated Diagnosis Comments BASIC METABOLIC PANEL STAT 07/21/2016 12:31 PM CDT documented in this encounter Results * (ABNORMAL) BASIC METABOLIC PANEL (07/21/2016 12:31 PM CDT) SODIUM S/P/B 136 135 - 147 MMOL/L 07/21/2016 12:11 PM CDT [facility] POTASSIUM S/P/B 3.2(L) 3.5 - 5.0 MMOL/L 07/21/2016 12:11 PM CDT [facility] CHLORIDE S/P/B 105 98 - 107 MMOL/L 07/21/2016 12:11 PM CDT [facility] CO2 21.6(L) 22 - 29 MMOL/L 07/21/2016 12:11 PM CDT [facility] GLUCOSE 181(H) 70 - 109 MG/DL 07/21/2016 12:11 PM CDT [facility] BUN 5(L) 7 - 19 MG/DL 07/21/2016 12:11 PM CDT [facility] CREATININE S/P/B 0.48(L) 0.60 - 1.10 MG/DL 07/21/2016 12:11 PM CDT [facility] CALCIUM S/P/B 8.0(L) 8.4 - 10.2 MG/DL 07/21/2016 12:11 PM CDT [facility] EGFR NON-AFR. AMER. 165 >60 ML/MIN/1.7 3 M2 07/21/2016 12:11 PM CDT [facility] EGFR AFR. AMER. 200 >60 ML/MIN/1.7 3 M2 07/21/2016 12:11 PM CDT [facility] ANION GAP 9.4 MMOL/L 07/21/2016 12:11 PM CDT [facility] OSMOLALITY (CALC) 274 MOSM/KG 07/21/2016 12:11 PM CDT [facility] PLASMA SPECIMEN / Unknown 07/21/2016 12:31 PM CDT 07/21/2016 11:33 AM CDT us Generic Conversion Md [facility] Final R esult [facility] [address] [place] [address], [id number] documented in this encounter Visit Diagnoses Not on filedocumented in this encounter
--- OUTSIDE RECORDS SUMMARY | 2024-05-10 18:17 | XMS_ITS | Encounter Summary ---
Author Organization [facility] Address [address] [place] [address]. [place] [address] [place] [address] Care Team Providers Care Project Buyer Name Role Phone Unavailable Primary Care Provider Unavailabl e Encounter Details Date Type Department Care Team (Late st Contact Info) Description 07/21/2016 Orders Only [place] [address] , Generic Conversion, Social History [...] Procedure Name Priority Date/Time Associated Diagnosis Comments BMP WITHOUT GLUCOSE TIMED 07/21/2016 3 :01 PM CDT documented in this encounter Results * (ABNORMAL) BMP WITHOUT GLUCOSE (07/21/2016 3:01 PM CDT) SODIUM S/P/B 136 135 - 147 MMOL/L 07/21/2016 3:09 PM CDT [facility] POTASSIUM S/P/B 3.4(L) 3.5 - 5.0 MMOL/L 07/21/2016 3:09 PM CDT [facility] CHLORIDE S/P/B 106 98 - 107 MMOL/L 07/21/2016 3:09 PM CDT [facility] CO2 22.0 22 - 29 MMOL/L 07/21/2016 3:09 PM CDT [facility] BUN 4(L) 7 - 19 MG/DL 07/21/2016 3:09 PM CDT [facility] CREATININE S/P/B 0.52(L) 0.60 - 1.10 MG/DL 07/21/2016 3:09 PM CDT [facility] CALCIUM S/P/B 7.8(L) 8.4 - 10.2 MG/DL 07/21/2016 3:09 PM CDT [facility] ANION GAP 8.0 MMOL/L 07/21/2016 3:09 PM CDT [facility] EGFR NON-AFR. AMER. 150 >60 ML/MIN/1.7 3 M2 07/21/2016 3:09 PM CDT [facility] EGFR AFR. AMER. 182 >60 ML/MIN/1.7 3 M2 07/21/2016 3:09 PM CDT [facility] PLASMA SPECIMEN / Unknown 07/21/2016 3:01 PM CDT 07/21/2016 2:02 PM CDT us Generic Conversion Md [facility] LAB[facility] Final R esult [facility] [address] [place] [address], [id number] documented in this encounter Visit Diagnoses Not on filedocumented in this encounter
--- OUTSIDE RECORDS SUMMARY | 2024-05-10 18:17 | XMS_ITS | Encounter Summary ---
Author Organization [facility] Address [address] [place] [address]. [place] [address] [place] [address] Care Team Providers Care Drapery Seamstress Name Role Phone Unavailable Primary Care Provider Unavailabl e Encounter Details Date Type Department Care Team (Late st Contact Info) Description 07/22/2016 Orders Only ANY CONVERSION ONE [place], [place] [id number] , Generic Conversion, Social History Tobacco Use [...] GLUCOSE - MCCORMICK DOCKED DEVICE Routine 07/22/2016 5:04 PM CDT documented in this encounter Results * (ABNORMAL) POCT glucose (07/22/2016 5:04 PM CDT) GLUCOSE POC 118(H) 70 - 109 07/22/2016 4:07 PM CDT [facility] ORDERS INTERFACE WHOLE BLOOD SPECIMEN / Unknown 07/22/2016 5:04 PM CDT 07/22/2016 4:07 PM CDT us Generic Conversion Md PASTRANA POCT ORDERABLES - DEVIC E Final Result [facility] LAB ORDERS INTERFACE US documented in this encounter Visit Diagnoses Not on filedocumented in this encounter
--- OUTSIDE RECORDS SUMMARY | 2024-05-10 18:17 | XMS_ITS | Encounter Summary ---
Author Organization [facility] Address [address] [place] [address]. [place] [address] [place] [address] Care Team Providers Care Alum Operator Name Role Phone Unavailable Primary Care Provider Unavailabl e Encounter Details Date Type Department Care Team (Late st Contact Info) Description 08/19/2016 Orders Only ANY CONVERSION ONE [place], [place] [id number] , Generic Conversion, Social History Tobacco Use [...] Date/Time Associated Diagnosis Comments BETA-HYDROXYBUTYRAT E TIMED 08/19/2016 9:56 PM CDT documented in this encounter Results * BETA-HYDROXYBUTYRATE (08/19/2016 9:56 PM CDT) BETA-HYDROXYBUT YRATE 0.1 0.0 - 0.3 MMOL/L 08/19/2016 9:11 PM CDT [facility] SERUM OR PLASMA SPECIMEN / Unknown 08/19/2016 9:56 PM CDT 08/19/2016 9:05 PM CDT us Generic Conversion Md PA[facility] LABORAT[facility] Final R esult [facility] [address] [place] [address], [id number] documented in this encounter Visit Diagnoses Not on filedocumented in this encounter
--- OUTSIDE RECORDS SUMMARY | 2024-05-10 18:17 | XMS_ITS | Encounter Summary ---
Author Organization [facility] Address [address] [place] [address]. [place] [address] [place] [address] Care Team Providers Care Acid Tank Liner Name Role Phone Unavailable Primary Care Provider Unavailabl e Encounter Details Date Type Department Care Team (Late st Contact Info) Description 08/19/2016 Orders Only ANY CONVERSION ONE [place], [place] [id number] , Generic Conversion, Social History Tobacco Use [...] GLUCOSE - MCCORMICK DOCKED DEVICE Routine 08/19/2016 9:10 AM CDT documented in this encounter Results * (ABNORMAL) POCT glucose (08/19/2016 9:10 AM CDT) GLUCOSE POC 254(H) 70 - 109 08/19/2016 8:12 AM CDT [facility] ORDERS INTERFACE WHOLE BLOOD SPECIMEN / Unknown 08/19/2016 9:10 AM CDT 08/19/2016 8:12 AM CDT us Generic Conversion Md PASTRANA POCT ORDERABLES - DEVIC E Final Result [facility] ORDERS INTERFACE US documented in this encounter Visit Diagnoses Not on filedocumented in this encounter
--- OUTSIDE RECORDS SUMMARY | 2024-05-10 18:17 | XMS_ITS | Encounter Summary ---
Author Organization [facility] Address [address] [place] [address]. [place] [address] [place] [address] Care Team Providers Care Registered Mail Clerk Name Role Phone Unavailable Primary Care Provider Unavailabl e Encounter Details Date Type Department Care Team (Late st Contact Info) Description 08/19/2016 Orders Only ANY CONVERSION ONE [place], [place] [id number] , Generic Conversion, Social History Tobacco Use [...] Date/Time Associated Diagnosis Comments BETA-HYDROXYBUTYRAT E STAT 08/19/2016 7:21 AM CDT documented in this encounter Results * (ABNORMAL) BETA-HYDROXYBUTYRATE (08/19/2016 7:21 AM CDT) BETA-HYDROXYBU TYRATE 5.2(H) 0.0 - 0.3 MMOL/L 08/19/2016 6:33 AM CDT [facility] SERUM OR PLASMA SPECIMEN / Unknown 08/19/2016 7:21 AM CDT 08/19/2016 6:24 AM CDT us Generic Conversion Md [facility] Final R esult [facility] [address] [place] [address], [id number] documented in this encounter Visit Diagnoses Not on filedocumented in this encounter
--- OUTSIDE RECORDS SUMMARY | 2024-05-10 18:17 | XMS_ITS | Encounter Summary ---
Author Organization [facility] Address [address] [place] [address]. [place] [address] [place] [address] Care Team Providers Care Needle Control Cheniller Name Role Phone Unavailable Primary Care Provider Unavailabl e Encounter Details Date Type Department Care Team (Late st Contact Info) Description 07/21/2016 Orders Only ANY CONVERSION ONE [place], [place] [id number] , Generic Conversion, Social History Tobacco Use [...] GLUCOSE - MCCORMICK DOCKED DEVICE Routine 07/21/2016 11:36 AM CDT documented in this encounter Results * (ABNORMAL) POCT glucose (07/21/2016 11:36 AM CDT) GLUCOSE POC 161(H) 70 - 109 07/21/2016 10:39 AM CDT [facility] ORDERS INTERFACE WHOLE BLOOD SPECIMEN / Unknown 07/21/2016 11:36 AM CDT 07/21/2016 10:39 AM CDT us Generic Conversion Md PASTRANA POCT ORDERABLES - DEVIC E Final Result [facility] ORDERS INTERFACE US documented in this encounter Visit Diagnoses Not on filedocumented in this encounter
--- OUTSIDE RECORDS SUMMARY | 2024-05-10 18:17 | XMS_ITS | Encounter Summary ---
Author Organization [facility] Address [address] [place] [address]. [place] [address] [place] [address] Care Team Providers Care Block Saw Operator Name Role Phone Unavailable Primary Care Provider Unavailabl e Encounter Details Date Type Department Care Team (Late st Contact Info) Description 08/19/2016 [place] [address] , Generic Conversion, Social History [...] Associated Diagnosis Comments BASIC METABOLIC PANEL STAT 08/19/2016 9:47 AM CDT documented in this encounter Results * (ABNORMAL) BASIC METABOLIC PANEL (08/19/2016 9:47 AM CDT) SODIUM S/P/B 132(L) 135 - 147 MMOL/L 08/19/2016 9:41 AM CDT [facility] POTASSIUM S/P/B 4.6 3.5 - 5.0 MMOL/L 08/19/2016 9:41 AM CDT [facility] CHLORIDE S/P/B 107 98 - 107 MMOL/L 08/19/2016 9:41 AM CDT [facility] CO2 6.4(LL) 22 - 29 MMOL/L 08/19/2016 9:44 AM CDT [facility] Comment:Critical results bety led to and read back by MARY PARNELL AT 1044.SB GLUCOSE 254(H) 70 - 109 MG/DL 08/19/2016 9:41 AM CDT [facility] BUN 10 7 - 19 MG/DL 08/19/2016 9:41 AM CDT [facility] CREATININE S/P/B 0.74 0.60 - 1.10 MG/DL 08/19/2016 9:41 AM CDT [facility] CALCIUM S/P/B 8.9 8.4 - 10.2 MG/DL 08/19/2016 9:41 AM CDT [facility] EGFR NON-AFR. AMER. 100 >60 ML/MIN/1.7 3 M2 08/19/2016 9:41 AM CDT [facility] EGFR AFR. AMER. 121 >60 ML/MIN/1.7 3 M2 08/19/2016 9:41 AM CDT [facility] ANION GAP 18.6 MMOL/L 08/19/2016 9:44 AM CDT [facility] OSMOLALITY (CALC) 272 MOSM/KG 08/19/2016 9:41 AM T [facility] PLASMA SPECIMEN / Unknown 08/19/2016 9:47 AM CDT 08/19/2016 8:51 AM CDT us Generic Conversion Md [facility] Final R esult [facility] [address] [place] [address], [id number] documented in this encounter Visit Diagnoses Not on filedocumented in this encounter
--- OUTSIDE RECORDS SUMMARY | 2024-05-10 18:17 | XMS_ITS | Encounter Summary ---
Author Organization [facility] Address [address] [place] [address]. [place] [address] [place] [address] Care Team Providers Care Cnc Cutting Operator Name Role Phone Unavailable Primary Care Provider Unavailabl e Encounter Details Date Type Department Care Team (Late st Contact Info) Description 07/21/2016 Orders Only ANY CONVERSION ONE [place], [place] [id number] , Generic Conversion, Social History Tobacco Use [...] GLUCOSE - MCCORMICK DOCKED DEVICE Routine 07/21/2016 7:29 PM CDT documented in this encounter Results * (ABNORMAL) POCT glucose (07/21/2016 7:29 PM CDT) GLUCOSE POC 138(H) 70 - 109 07/21/2016 6:39 PM CDT [facility] ORDERS INTERFACE WHOLE BLOOD SPECIMEN / Unknown 07/21/2016 7:29 PM CDT 07/21/2016 6:39 PM CDT us Generic Conversion Md [facility] POCT ORDERABLES - DEVIC E Final Result [facility] ORDERS INTERFACE US documented in this encounter Visit Diagnoses Not on filedocumented in this encounter
--- OUTSIDE RECORDS SUMMARY | 2024-05-10 18:17 | XMS_ITS | Encounter Summary ---
Author Organization [facility] Address [address] [place] [address]. [place] [address] [place] [address] Care Team Providers Care Fws Faculty Assistant Name Role Phone Unavailable Primary Care Provider Unavailabl e Encounter Details Date Type Department Care Team (Latest Contact Info) Description 07/21/2016 Abstract [facility] Social History Tobacco [...] Date/Time Associated Diagnosis Comments ECG 12-LEAD Routine 07/21/2016 12:00 PM CDT documented in this encounter Results * ECG 12 lead (07/21/2016 12:00 PM CDT) 07/21/2016 12:0 0 PM CDT Narrative [facility] - 07/21/2016 12:59 PM CDT ? [facility] ? [address] [place], [place] ??[address] ? Test Date: ?2016-07-21 Pat Name: ? KARINA FUCHS ? Department: ?? 1 ? Room: ? W32 Gender: ? Female ? Sewer Pipe Cleaner: ?? gs : ?1995 ? Requested By: LETTY HANSONVINCENT Order Number: [id number] ? Reading MD: ?? Luis M Hair ? Measurements Intervals ?[place] ? Rate: ? 101 ?P: ?55 NJ: ? 137 ?QRS: ?81 QRSD: ? 80 ? T: ?-8 QT: ? 336 ? QTc: ?436 ? Interpretive Statements SINUS TACHYCARDIA NONSPECIFIC ST & T-WAVE ABNORMALITY Procedure Note , Generic Conversion, - 12/26/2018 [place] [address] [place] [address] Test Date: 2016-07-21 Pat Name: KARINA FUCHS Department: 1 Room: [facility] Gender: Female Sewer Pipe Cleaner: : 1995 Requested By: LETTY WILLIAMSON Order Number: [id number] Reading MD: Luis M Hair Measurements Intervals [place] Rate: 101 P: 55 NJ: 137 QRS: 81 QRSD: 80 T: -8 QT: 336 QTc: 436 Interpretive Statements SINUS TACHYCARDIA NONSPECIFIC ST & T-WAVE ABNORMALITY us Generic Conversion Md [facility] ECG ORDERABLES Final R esult [facility] documented in this encounter Visit Diagnoses Not on filedocumented in this encounter
--- OUTSIDE RECORDS SUMMARY | 2024-05-10 18:17 | XMS_ITS | Encounter Summary ---
Author Organization [facility] Address [address] [place] [address]. [place] [address] [place] [address] Care Team Providers Care Mine Analyst Name Role Phone Unavailable Primary Care Provider Unavailabl e Encounter Details Date Type Department Care Team (Late st Contact Info) Description 08/19/2016 Orders [place] [address] , Generic Conversion, Social History Tobacco Use [...] GLUCOSE - MCCORMICK DOCKED DEVICE Routine 08/19/2016 6:43 AM CDT documented in this encounter Results * (ABNORMAL) POCT glucose (08/19/2016 6:43 AM CDT) GLUCOSE POC 257(H) 70 - 109 08/19/2016 5:47 AM CDT [facility] ORDERS INTERFACE WHOLE BLOOD SPECIMEN / Unknown 08/19/2016 6:43 AM CDT 08/19/2016 5:47 AM CDT us Generic Conversion Md PA[facility] POCT ORDERABLES - DEVIC E Final Result [facility] ORDERS INTERFACE US documented in this encounter Visit Diagnoses Not on filedocumented in this encounter
--- OUTSIDE RECORDS SUMMARY | 2024-05-10 18:17 | XMS_ITS | Encounter Summary ---
Author Organization [facility] Address [address] [place] [address]. [place] [address] [place] [address] Care Team Providers Care Cover Marker Name Role Phone Unavailable Primary Care Provider Unavailabl e Encounter Details Date Type Department Care Team (Late st Contact Info) Description 07/21/2016 Orders [place] [address] , Generic Conversion, Social History Tobacco Use [...] GLUCOSE - MCCORMICK DOCKED DEVICE Routine 07/21/2016 10:59 AM CDT documented in this encounter Results * (ABNORMAL) POCT glucose (07/21/2016 10:59 AM CDT) GLUCOSE POC 165(H) 70 - 109 07/21/2016 10:08 AM CDT [facility] ORDERS INTERFACE WHOLE BLOOD SPECIMEN / Unknown 07/21/2016 10:59 AM CDT 07/21/2016 10:08 AM CDT us Generic Conversion Md [facility] POCT ORDERABLES - DEVIC E Final Result [facility] ORDERS INTERFACE US documented in this encounter Visit Diagnoses Not on filedocumented in this encounter
--- OUTSIDE RECORDS SUMMARY | 2024-05-10 18:17 | XMS_ITS | Encounter Summary ---
Author Organization [facility] Address [address] [place] [address]. [place] [address] [place] [address] Care Team Providers Care Clinical Data Management Manager Name Role Phone Unavailable Primary Care Provider Unavailabl e Encounter Details Date Type Department Care Team (Late st Contact Info) Description 07/23/2016 Orders [place] [address] , Generic Conversion, Social History Tobacco Use [...] GLUCOSE - MCCORMICK DOCKED DEVICE Routine 07/23/2016 1:56 AM CDT documented in this encounter Results * POCT glucose (07/23/2016 1:56 AM CDT) GLUCOSE POC 107 70 - 109 07/23/2016 12:57 AM CDT [facility] ORDERS INTERFACE WHOLE BLOOD SPECIMEN / Unknown 07/23/2016 1:56 AM CDT 07/23/2016 12:57 AM CDT us Generic Conversion Md [facility] POCT ORDERABLES - DEVIC E Final Result [facility] ORDERS INTERFACE US documented in this encounter Visit Diagnoses Not on filedocumented in this encounter
--- OUTSIDE RECORDS SUMMARY | 2024-05-10 18:17 | XMS_ITS | Encounter Summary ---
Author Organization [facility] Address [address] [place] [address]. [place] [address] [place] [address] Care Team Providers Care Stock Transfer Clerk Name Role Phone Unavailable Primary Care Provider Unavailabl e Encounter Details Date Type Department Care Team (Late st Contact Info) Description 07/24/2016 Abstract [facility] Outpatient Labor & Delivery [address] [place] [address] Ector Mayfield MD [address] [place] [address] Social History Tobacco Use Types [...]
--- OUTSIDE RECORDS SUMMARY | 2024-05-10 18:17 | XMS_ITS | Encounter Summary ---
Author Organization [facility] Address [address] [place] [address]. [place] [address] [place] [address] Care Team Providers Care Manager Heavy Equipment Name Role Phone Unavailable Primary Care Provider Unavailabl e Encounter Details Date Type Department Care Team (Late st Contact Info) Description 07/22/2016 Orders Only ANY CONVERSION ONE [place], [place] [id number] , Generic Conversion, Social History Tobacco Use [...] GLUCOSE - MCCORMICK DOCKED DEVICE Routine 07/22/2016 8:22 PM CDT documented in this encounter Results * (ABNORMAL) POCT glucose (07/22/2016 8:22 PM CDT) GLUCOSE POC 188(H) 70 - 109 07/22/2016 10:12 PM CDT [facility] ORDERS INTERFACE WHOLE BLOOD SPECIMEN / Unknown 07/22/2016 8:22 PM CDT 07/22/2016 10:12 PM CDT us Generic Conversion Md [facility] POCT ORDERABLES - DEVIC E Final Result [facility] ORDERS INTERFACE US documented in this encounter Visit Diagnoses Not on filedocumented in this encounter
--- OUTSIDE RECORDS SUMMARY | 2024-05-10 18:17 | XMS_ITS | Encounter Summary ---
Author Organization [facility] Address [address] [place] [address]. [place] [address] [place] [address] Care Team Providers Care Life Enrichment Manager Name Role Phone Unavailable Primary Care Provider Unavailabl e Encounter Details Date Type Department Care Team (Late st Contact Info) Description 07/21/2016 Orders Only ANY CONVERSION ONE [place], [place] [id number] , Generic Conversion, Social History Tobacco Use [...] GLUCOSE - MCCORMICK DOCKED DEVICE Routine 07/21/2016 10:30 AM CDT documented in this encounter Results * (ABNORMAL) POCT glucose (07/21/2016 10:30 AM CDT) GLUCOSE POC 200(H) 70 - 109 07/21/2016 9:33 AM CDT [facility] ORDERS INTERFACE WHOLE BLOOD SPECIMEN / Unknown 07/21/2016 10:30 AM CDT 07/21/2016 9:33 AM CDT us Generic Conversion Md [facility] POCT ORDERABLES - DEVIC E Final Result [facility] ORDERS INTERFACE US documented in this encounter Visit Diagnoses Not on filedocumented in this encounter
--- OUTSIDE RECORDS SUMMARY | 2024-05-10 18:17 | XMS_ITS | Encounter Summary ---
Author Organization [facility] Address [address] [place] [address]. [place] [address] [place] [address] Care Team Providers Care Game And Fish Protector Name Role Phone Unavailable Primary Care Provider Unavailabl e Encounter Details Date Type Department Care Team (Late st Contact Info) Description 07/23/2016 Orders Only ANY CONVERSION ONE [place], [place] [id number] , Generic Conversion, Social History Tobacco Use [...] GLUCOSE - MCCORMICK DOCKED DEVICE Routine 07/23/2016 3:47 PM CDT documented in this encounter Results * (ABNORMAL) POCT glucose (07/23/2016 3:47 PM CDT) GLUCOSE POC 149(H) 70 - 109 07/23/2016 2:[address] [facility] ORDERS INTERFACE WHOLE BLOOD SPECIMEN / Unknown 07/23/2016 3:47 PM CDT 07/23/2016 2:49 PM CDT us Generic Conversion Md PASTRANA POCT ORDERABLES - DEVIC E Final Result [facility] ORDERS INTERFACE US documented in this encounter Visit Diagnoses Not on filedocumented in this encounter
--- OUTSIDE RECORDS SUMMARY | 2024-05-10 18:17 | XMS_ITS | Encounter Summary ---
Author Organization [facility] Address [address] [place] [address]. [place] [address] [place] [address] Care Team Providers Care Line Painting Machine Operator Name Role Phone Unavailable Primary Care Provider Unavailabl e Encounter Details Date Type Department Care Team (Late st Contact Info) Description 07/22/2016 Orders Only ANY CONVERSION ONE [place], [place] [id number] , Generic Conversion, Social History Tobacco Use [...] GLUCOSE - MCCORMICK DOCKED DEVICE Routine 07/22/2016 5:37 PM CDT documented in this encounter Results * POCT glucose (07/22/2016 5:37 PM CDT) GLUCOSE POC 99 70 - 109 07/22/2016 4:56 PM CDT [facility] ORDERS INTERFACE WHOLE BLOOD SPECIMEN / Unknown 07/22/2016 5:37 PM CDT 07/22/2016 4:56 PM CDT us Generic Conversion Md PA[facility] POCT ORDERABLES - DEVIC E Final Result [facility] ORDERS INTERFACE US documented in this encounter Visit Diagnoses Not on filedocumented in this encounter
--- OUTSIDE RECORDS SUMMARY | 2024-05-10 18:17 | XMS_ITS | Encounter Summary ---
Author Organization [facility] Address [address] [place] [address]. [place] [address] [place] [address] Care Team Providers Care Video Manager Name Role Phone Unavailable Primary Care Provider Unavailabl e Encounter Details Date Type Department Care Team (Late st Contact Info) Description 07/21/2016 Orders Only ANY CONVERSION ONE [place], [place] [id number] , Generic Conversion, Social History Tobacco Use [...] GLUCOSE - MCCORMICK DOCKED DEVICE Routine 07/21/2016 2:37 PM CDT documented in this encounter Results * (ABNORMAL) POCT glucose (07/21/2016 2:37 PM CDT) GLUCOSE POC 161(H) 70 - 109 07/21/2016 1:39 PM CDT [facility] ORDERS INTERFACE WHOLE BLOOD SPECIMEN / Unknown 07/21/2016 2:37 PM CDT 07/21/2016 1:38 PM CDT us Generic Conversion Md [facility] POCT ORDERABLES - DEVIC E Final Result [facility] ORDERS INTERFACE US documented in this encounter Visit Diagnoses Not on filedocumented in this encounter
--- OUTSIDE RECORDS SUMMARY | 2024-05-10 18:18 | XMS_ITS | Encounter Summary ---
Author Organization [facility] Address [address] [place] [address]. [place] [address] [place] [address] Care Team Providers Care Membership Sales Manager Name Role Phone Unavailable Primary Care Provider Unavailabl e Encounter Details Date Type Department Care Team (Late st Contact Info) Description 07/21/2016 Orders [place] [address] , Generic Conversion, Social History [...] Associated Diagnosis Comments URINALYSIS Nurse Collected Priority 07/21/2016 3:20 AM CDT documented in this encounter Results * (ABNORMAL) URINALYSIS (07/21/2016 3:20 AM CDT) COLOR (U) YELLOW 07/21/2016 3:08 AM CDT [facility] TRANSPARENCY SLIGHTLY CLOUDY 07/21/2016 3:08 AM CDT [facility] SPECIFIC GRAVITY (U) 1.029 1.002 - 1.035 07/21/2016 3:08 AM CDT [facility] U PH 7.0 5 - 8 07/21/2016 3:08 AM CDT [facility] PROTEIN (U) 100(A) NEGATIVE 07/21/2016 3:08 AM CDT [facility] URINE GLUCOSE >=500(A) NEGATIVE MG/DL 07/21/2016 3:08 AM CDT [facility] KETONES MG/DL (U) 20(A) NEGATIVE 07/21/2016 3:08 AM CDT [facility] BILIRUBIN (U) NEGATIVE NEGATIVE 07/21/2016 3:08 AM CDT [facility] BLOOD (U) NEGATIVE NEGATIVE 07/21/2016 3:08 AM CDT [facility] NITRITES POSITIVE(A) NEGATIVE 07/21/2016 3:08 AM CDT [facility] UROBILINOGEN NORMAL 0 - 1 EU/DL 07/21/2016 3:08 AM CDT [facility] LEUKOCYTES (U) LARGE(A) NEGATIVE 07/21/2016 3:08 AM CDT [facility] RBC/HPF 11 /HPF 07/21/2016 3:08 AM CDT [facility] WBC/HPF >182 /HPF 07/21/2016 3:08 AM CDT [facility] Comment:PLEASE CALL THE LAB WITHIN 2 HOURS IF ACTUAL NUMBER OF CELLS IS REQUIRED. BACTERIA (U) PRESENT /HPF 07/21/2016 3:08 AM CDT [facility] SQUAMOUS EPITHELIALS 3 07/21/2016 3:08 AM CDT [facility] URINE SPECIMEN / Unknown 07/21/2016 3:20 AM CDT 07/21/2016 2:46 AM CDT us Generic Conversion Md PASTRANA URINE ORDERABLES Final Result [facility] [address] [place] [address], [place] [phone] [id number] documented in this encounter Visit Diagnoses Not on filedocumented in this encounter
--- OUTSIDE RECORDS SUMMARY | 2024-05-10 18:18 | XMS_ITS | Encounter Summary ---
Author Organization [facility] Address [address] [place] [address]. [place] [address] [place] [address] Care Team Providers Care Professor Of Mechanical Engineering Name Role Phone Unavailable Primary Care Provider Unavailabl e Encounter Details Date Type Department Care Team (Late st Contact Info) Description 07/15/2016 Orders [place] [address] , Generic Conversion, Social History [...] Date/Time Associated Diagnosis Comments HEMOGLOBIN, GLYCOSYLATED Routine 07/15/2016 3:04 PM CDT documented in this encounter Results * (ABNORMAL) HEMOGLOBIN, GLYCOSYLATED (07/15/2016 3:04 PM CDT) HGB A1C 9.3(H) 4.5 - 6.0 % 07/15/2016 4:48 PM CDT [facility] ESTIMATED AVG GLUCOSE 220 MG/DL 07/15/2016 4:48 PM CDT [facility] 07/15/2016 3:04 PM CDT 07/15/2016 3:35 PM CDT us Generic Conversion Md [facility] Final R esult [facility] [address] [place] [address], [place] [phone] [id number] documented in this encounter Visit Diagnoses Not on filedocumented in this encounter
--- OUTSIDE RECORDS SUMMARY | 2024-05-10 18:18 | XMS_ITS | Encounter Summary ---
Author Organization [facility] Address [address] [place] [address]. [place] [address] [place] [address] Care Team Providers Care Refueling Ramp Supervisor Name Role Phone Unavailable Primary Care Provider Unavailabl e Encounter Details Date Type Department Care Team (Late st Contact Info) Description 03/18/2016 Orders Only ANY CONVERSION ONE [place], [place] [id number] , Generic Conversion, Social History Tobacco Use [...] Priority Date/Time Associated Diagnosis Comments SYPHILIS/RPR/VDRL; QUAL TIMED 03/18/2016 3:30 PM LEARNING OPERATIONS SPECIALIST documented in this encounter Results * SYPHILIS/RPR/VDRL; QUAL (03/18/2016 3:30 PM LEARNING OPERATIONS SPECIALIST) RPR NON-REACTIV E NON-REACTI VE 03/20/2016 11:15 AM LEARNING OPERATIONS SPECIALIST [facility] SERUM SPECIMEN / Unknown 03/18/2016 3:30 PM LEARNING OPERATIONS SPECIALIST 03/18/2016 6:15 PM LEARNING OPERATIONS SPECIALIST us Generic Conversion Md [facility] Final R esult [facility] [address] [place] [address], [id number] documented in this encounter Visit Diagnoses Not on filedocumented in this encounter
--- OUTSIDE RECORDS SUMMARY | 2024-05-10 18:18 | XMS_ITS | Encounter Summary ---
Author Organization [facility] Address [address] [place] [address]. [place] [address] [place] [address] Care Team Providers Care Patient Financial Counselor Name Role Phone Unavailable Primary Care Provider Unavailabl e Encounter Details Date Type Department Care Team (Late st Contact Info) Description 07/21/2016 Orders Only ANY CONVERSION ONE [place], [place] [id number] , Generic Conversion, Social History Tobacco Use [...] Associated Diagnosis Comments URINE BACTERIA CULTURE TIMED 07/21/2016 3:26 AM CDT documented in this encounter Results * CULTURE URINE (07/21/2016 3:26 AM CDT) SPEC DESCRIPTION URINE 07/21/2016 7:27 AM CDT [facility] SPECIAL REQUESTS NO SPECIAL REQUEST 07/21/2016 7:27 AM CDT [facility] CULTURE RESULT NO GROWTH (< OR = 1,000 CFU/ML) 07/21/2016 11:48 PM CDT [facility] URINE SPECIMEN / Unknown 07/21/2016 3:26 AM CDT 07/21/2016 2:30 PM CDT Comment:URINE CLEAN CATCH us Generic Conversion Md PA[facility] MICROBIOLOGY - GENERAL ORDERABLES Final Result Performing Organization Address City/State/[facility] Co de Phone Number [facility] [address] [place] [address], [place] [phone] [id number] documented in this encounter Visit Diagnoses Not on filedocumented in this encounter
--- OUTSIDE RECORDS SUMMARY | 2024-05-10 18:18 | XMS_ITS | Encounter Summary ---
Author Organization [facility] Address [address] [place] [address]. [place] [address] [place] [address] Care Team Providers Care Tubing Oiler Name Role Phone Unavailable Primary Care Provider Unavailabl e Encounter Details Date Type Department Care Team (Late st Contact Info) Description 07/21/2016 Abstract [facility] [address] [place] [address] Shell Kitchen MD [address] [place] [address] [place] [address] Ector Mayfield MD [address] [place] [address] Social History Tobacco Use Types [...] Pre-existing type 1 diabetes mellitus during in second trimester (HHS/HCC) documented in this encounter
--- OUTSIDE RECORDS SUMMARY | 2024-05-10 18:18 | XMS_ITS | Encounter Summary ---
Author Organization [facility] Address [address] [place] [address]. [place] [address] [place] [address] Care Team Providers Care Senior Electrical Design Engineer Name Role Phone Unavailable Primary Care Provider Unavailabl e Encounter Details Date Type Department Care Team (Late st Contact Info) Description 03/13/2015 [facility] [address] [place] [id number] , Veena Sepulveda MD Social History Tobacco [...]
--- OUTSIDE RECORDS SUMMARY | 2024-05-10 18:18 | XMS_ITS | Encounter Summary ---
Author Organization [facility] Address [address] [place] [address]. [place] [address] [place] [address] Care Team Providers Care Die Cast Operator Name Role Phone Unavailable Primary Care Provider Unavailabl e Encounter Details Date Type Department Care Team (Latest Contact Info) Description 03/13/2015 Abstract [facility] Social History Tobacco Use [...]
--- OUTSIDE RECORDS SUMMARY | 2024-05-10 18:18 | XMS_ITS | Encounter Summary ---
Author Organization [facility] Address [address] [place] [address]. [place] [address] [place] [address] Care Team Providers Care Business Banking Sales Assistant Name Role Phone Unavailable Primary Care Provider Unavailabl e Encounter Details Date Type Department Care Team (Late st Contact Info) Description 03/18/2016 [place] [address] , Generic Conversion, Social History [...] Associated Diagnosis Comments CBC W/DIFF AUTOMATED TIMED 03/18/2016 3:30 PM MANAGER LOGISTIC documented in this encounter Results * (ABNORMAL) CBC W/DIFF AUTOMATED (03/18/2016 3:30 PM MANAGER LOGISTIC) WBC 9.7 4.0 - 10.8 x10'3/uL 03/18/2016 7:17 PM MANAGER LOGISTIC [facility] RBC 4.83 4.10 - 5.40 x10'6/uL 03/18/2016 7:17 PM MANAGER LOGISTIC [facility] HGB 14.4 12.0 - 16.0 G/DL 03/18/2016 7:17 PM MANAGER LOGISTIC [facility] HCT 41.7 36.0 - 47.0 % 03/18/2016 7:17 PM [facility] MCV 86.3 78.0 - 100.0 FL 03/18/2016 7:17 PM [facility] MCH 29.8 27.0 - 31.0 PG 03/18/2016 7:17 PM [facility] MCHC 34.5 33.0 - 36.0 G/DL 03/18/2016 7:17 PM [facility] RDW 14.0 11.5 - 14.5 % 03/18/2016 7:17 PM [facility] PLT 386(H) 150 - 350 x10'3/uL 03/18/2016 7:17 PM [facility] MPV 9.1 7.4 - 10.4 FL 03/18/2016 7:17 PM [facility] ABS. NEUTROPHILS TOTAL 5.78 1.60 - 8.30 x10'3/uL 03/18/2016 7:17 PM [facility] ABS. LYMPHOCYTES 2.99 0.80 - 4.70 x10'3/uL 03/18/2016 7:17 PM [facility] ABS. MONOCYTES 0.77 0.00 - 1.50 x10'3/uL 03/18/2016 7:17 PM [facility] ABS. EOSINOPHILS 0.04 0.00 - 0.40 x10'3/uL 03/18/2016 7:17 PM [facility] ABS. BASOPHILS 0.03 0.00 - 0.20 x10'3/uL 03/18/2016 7:17 PM [facility] ABS. IMMATURE GRANULOCYTES 0.04(H) 0.00 - 0.03 x10'3/uL 03/18/2016 7:17 PM [facility] ABS. NUCLEATED RBC'S 0.00 0.0 x10'3/uL 03/18/2016 7:17 PM [facility] PLASMA SPECIMEN / Unknown 03/18/2016 3:30 PM MANAGER LOGISTIC 03/18/2016 6:14 PM MANAGER LOGISTIC us Generic Conversion Md [facility] Final R esult Performing Organization Address City/State/[facility] Co de Phone Number [facility] [address] [place] [address], [id number] documented in this encounter Visit Diagnoses Not on filedocumented in this encounter
--- OUTSIDE RECORDS SUMMARY | 2024-05-10 18:18 | XMS_ITS | Encounter Summary ---
Author Organization [facility] [place] [facility] Address [address] [place] [address]. [place] [address] [place] [address] Care Team Providers Care Commissary Superintendent Name Role Phone Unavailable Primary Care Provider Unavailabl e Encounter Details Date Type Department Care Team (Late st Contact Info) Description 03/18/2016 Abstract [facility] [address] [place] [address] Ector Mayfield MD [address] [place] [address] Social History Tobacco Use Types [...] this encounter Visit Diagnoses Diagnosis Encounter for supervision of normal first ([facility]) Supervision of normal first documented in this encounter
--- OUTSIDE RECORDS SUMMARY | 2024-05-10 18:18 | XMS_ITS | Encounter Summary ---
Author Organization [facility] Address [address] [place] [address]. [place] [address] [place] [address] Care Team Providers Care Mincemeat Maker Name Role Phone Unavailable Primary Care Provider Unavailabl e Encounter Details Date Type Department Care Team (Latest Contact Info) Description 04/10/2016 Abstract [facility] Medical Group Social [...]
--- OUTSIDE RECORDS SUMMARY | 2024-05-10 18:18 | XMS_ITS | Encounter Summary ---
Author Organization [facility] Address [address] [place] [address]. [place] [address] [place] [address] Care Team Providers Care Press Clipper Name Role Phone Unavailable Primary Care Provider Unavailabl e Encounter Details Date Type Department Care Team (Late st Contact Info) Description 03/18/2016 [place] [address] , Generic Conversion, Social History Tobacco Use [...] Name Priority Date/Time Associated Diagnosis Comments TYPE AND SCREEN TIMED 03/18/2016 5:52 PM RETURN CLERK documented in this encounter Results * TYPE AND SCREEN (03/18/2016 5:52 PM RETURN CLERK) ABO/RH O POSITIVE 03/18/2016 8:45 PM RETURN CLERK [facility] ANTIBODY SCREEN NEGATIVE 03/18/2016 8:45 PM RETURN CLERK [facility] 03/18/2016 5:52 PM RETURN CLERK 03/18/2016 7:53 PM RETURN CLERK us Generic Conversion Md [facility] BLOOD BANK TEST ORDERAB LES Final Result [facility] [address] [place] [address], [id number] documented in this encounter Visit Diagnoses Not on filedocumented in this encounter
--- OUTSIDE RECORDS SUMMARY | 2024-05-10 18:18 | XMS_ITS | Encounter Summary ---
Author Organization [facility] Address [address] [place] [address]. [place] [address] [place] [address] Care Team Providers Care Maintenance Advisor Name Role Phone Unavailable Primary Care Provider Unavailabl e Encounter Details Date Type Department Care Team (Late st Contact Info) Description 03/13/2015 Abstract [facility] [address] [place] [id number] , Veena Sepulveda MD Social History Tobacco [...] Procedure Name Priority Date/Time Associated Diagnosis Comments EXTERNAL EJECTION FRACTION Routine 03/13/2015 12:00 AM BACK TENDER CLOTH PRINTING documented in this encounter Results * EXTERNAL EJECTION FRACTION (03/13/2015 12:00 AM BACK TENDER CLOTH PRINTING) EJECTION FRACTION 62 HS HS LAB ORDERS INTERFACE Comment: The left ventricular size is normal. The left ventricular systolic function is normal. The calculated ejection fraction is 62%. Wall motion appears normal in all segments. The left atrial size is normal. The mitral valve is structurally normal. There is trace mitral regurgitation. Anatomical Region Laterality Modality Other 03/13/2015 03/13/2015 Narrative 03/13/2015 12:00 AM BACK TENDER CLOTH PRINTING Echo with Cardiac Doppler, us Generic Conversion Md [facility] OTHER Final R esult documented in this encounter Visit Diagnoses Not on filedocumented in this encounter
--- OUTSIDE RECORDS SUMMARY | 2024-05-10 18:18 | XMS_ITS | Encounter Summary ---
Author Organization [facility] Address [address] [place] [address]. [place] [address] [place] [address] Care Team Providers Care Director Of Business Continuity Name Role Phone Unavailable Primary Care Provider Unavailabl e Encounter Details Date Type Department Care Team (Late st Contact Info) Description 03/18/2016 Orders [place] [address] , Generic Conversion, Social History [...] Procedure Name Priority Date/Time Associated Diagnosis Comments HIV 1 ANTIGEN(S), WITH HIV-1 AND HIV-2 ANTIBODIES TIMED 03/18/2016 3:30 PM CHANNELER INSOLE documented in this encounter Results * HIV 1 ANTIGEN(S), WITH HIV-1 AND HIV-2 ANTIBODIES (03/18/2016 3:30 PM CHANNELER INSOLE) HIV 1/2 ANTIBODY NON-REACTI VE NON-REACTI VE 03/19/2016 10:26 AM CHANNELER INSOLE [facility] Comment:HIV 1 p24 Ag and HIV 1/ HIV 2 Ab not detected. SERUM OR PLASMA SPECIMEN / Unknown 03/18/2016 3:30 PM CHANNELER INSOLE 03/18/2016 6:14 PM CHANNELER INSOLE us Generic Conversion Md [facility] Final R esult [facility] [address] [place] [address], [id number] documented in this encounter Visit Diagnoses Not on filedocumented in this encounter
--- OUTSIDE RECORDS SUMMARY | 2024-05-10 18:18 | XMS_ITS | Encounter Summary ---
Author Organization [facility] Address [address] [place] [address]. [place] [address] [place] [address] Care Team Providers Care Body Welder Name Role Phone Unavailable Primary Care Provider Unavailabl e Encounter Details Date Type Department Care Team (Late st Contact Info) Description 03/18/2016 Orders [place] [address] Md, Generic Conversion, Social History Tobacco Use [...] Procedure Name Priority Date/Time Associated Diagnosis Comments RUBELLA IGG TIMED 03/18/2016 3:30 PM FIRE TOWER KEEPER documented in this encounter Results * RUBELLA IGG (03/18/2016 3:30 PM FIRE TOWER KEEPER) RUBELLA IGG AB 13.8 IU/ML 03/19/2016 12:40 PM FIRE TOWER KEEPER [facility] Comment: In the absence of acute symptoms, a result of 10.0 or greater indicates past immunity. SERUM SPECIMEN / Unknown 03/18/2016 3:30 PM FIRE TOWER KEEPER 03/18/2016 6:15 PM FIRE TOWER KEEPER us Generic Conversion Md [facility] Final R esult [facility] [address] [place] [address], [id number] documented in this encounter Visit Diagnoses Not on filedocumented in this encounter
--- OUTSIDE RECORDS SUMMARY | 2024-05-10 18:18 | XMS_ITS | Encounter Summary ---
Author Organization [facility] Address [address] [place] [address]. [place] [address] [place] [address] Care Team Providers Care Police [employer] Program Coordinator Name Role Phone Unavailable Primary Care Provider Unavailabl e Encounter Details Date Type Department Care Team (Late st Contact Info) Description 07/15/2016 Abstract [facility] [address] [place] [address] Ector Mayfield MD [address] [place] [address] Social History Tobacco Use Types [...] Diagnosis Pre-existing type 1 diabetes mellitus during (HHS/HCC) documented in this encounter
--- OUTSIDE RECORDS SUMMARY | 2024-05-10 18:18 | XMS_ITS | Encounter Summary ---
Author Organization [facility] Address [address] [place] [address]. [place] [address] [place] [address] Care Team Providers Care Cath Lab Technologist Name Role Phone Unavailable Primary Care Provider Unavailabl e Encounter Details Date Type Department Care Team (Late st Contact Info) Description 03/18/2016 Orders [place] [address] , Generic Conversion, Social History Tobacco Use [...] Procedure Name Priority Date/Time Associated Diagnosis Comments HEPATITIS B SURFACE AG, EIA TIMED 03/18/2016 3:30 PM VESSEL CREW MEMBER documented in this encounter Results * HEPATITIS B SURFACE AG, EIA (03/18/2016 3:30 PM VESSEL CREW MEMBER) HEPATITIS B SURFACE AG NON-REACTI VE NON-REACTI VE 03/19/2016 10:26 AM VESSEL CREW MEMBER [facility] Comment:HBsAg NOT DETECTED. SERUM OR PLASMA SPECIMEN / Unknown 03/18/2016 3:30 PM VESSEL CREW MEMBER 03/18/2016 6:14 PM VESSEL CREW MEMBER us Generic Conversion Md [facility] Final R esult [facility] [address] [place] [address], [id number] documented in this encounter Visit Diagnoses Not on filedocumented in this encounter
--- OUTSIDE RECORDS SUMMARY | 2024-05-10 18:18 | XMS_ITS | Encounter Summary ---
Author Organization [facility] Address [address] [place] [address]. [place] [address] [place] [address] Care Team Providers Care Landscape Crew Leader Name Role Phone Unavailable Primary Care Provider Unavailabl e Encounter Details Date Type Department Care Team (Late st Contact Info) Description 03/18/2016 Orders [place] [address] , Generic Conversion, Social History [...] Name Priority Date/Time Associated Diagnosis Comments RUBELLA IGM TIMED 03/18/2016 3:30 PM PATIENT CARE PROVIDER documented in this encounter Results * RUBELLA IGM (03/18/2016 3:30 PM PATIENT CARE PROVIDER) RUBELLA IGM AB <0.90 <0.90 03/21/2016 3:43 PM PATIENT CARE PROVIDER EDA HANDY Comment: <0.90 ?Negative 0.90 - 1.09 ?Equivocal > or = 1.10 ?Positive Test Performed by Edin Veras, Eda Bolden [facility], [address] [place] [address] Kyrie Ellis M.D., Ph.D., Director of Laboratories , [place] [id number] SERUM SPECIMEN / Unknown 03/18/2016 3:30 PM PATIENT CARE PROVIDER 03/18/2016 6:15 PM PATIENT CARE PROVIDER us Generic Conversion Md [facility] Final R esult Conject[facility] [address] [place] [address], [place] [phone] documented in this encounter Visit Diagnoses Not on filedocumented in this encounter
--- OUTSIDE RECORDS SUMMARY | 2024-05-10 18:18 | XMS_ITS | Encounter Summary ---
Author Organization [facility] Address [address] [place] [address]. [place] [address] [place] [address] Care Team Providers Care Aircraft Refueler Name Role Phone Unavailable Primary Care Provider Unavailabl e Encounter Details Date Type Department Care Team (Late st Contact Info) Description 03/18/2016 Orders Only ANY CONVERSION [place], [place] [id number] , Generic Conversion, Social History Tobacco Use [...] Procedure Name Priority Date/Time Associated Diagnosis Comments CULTURE URINE (OUTPATIENTS) Nurse Collected Priority 03/18/2016 3:30 PM TRAIN CREW MEMBER documented in this encounter Results * CULTURE URINE (OUTPATIENTS) (03/18/2016 3:30 PM TRAIN CREW MEMBER) SPEC DESCRIPTION URINE 03/18/2016 5:55 PM TRAIN CREW MEMBER [facility] SPECIAL REQUESTS NO SPECIAL REQUEST 03/18/2016 5:55 PM TRAIN CREW MEMBER [facility] CULTURE RESULT FEW CONTAMINANTS 03/03 3:51 AM TRAIN CREW MEMBER [facility] URINE SPECIMEN / Unknown 03/18/2016 3:30 PM TRAIN CREW MEMBER 03/18/2016 7:51 PM TRAIN CREW MEMBER Comment:URINE CLEAN CATCH us Generic Conversion Md [facility] MICROBIOLOGY - GENERAL ORDERABLES Final Result Performing Organization Address City/State/[facility] Co de Phone Number [facility] [address] [place] [address], [id number] documented in this encounter Visit Diagnoses Not on filedocumented in this encounter
--- OUTSIDE RECORDS SUMMARY | 2024-05-10 18:18 | XMS_ITS | Encounter Summary ---
Author Organization [facility] Address [address] [place] [address]. [place] [address] [place] [address] Care Team Providers Care Metal Bumper Name Role Phone Unavailable Primary Care Provider Unavailabl e Encounter Details Date Type Department Care Team (Latest Contact Info) Description 03/15/2015 Abstract [facility] Medical Group Social History Tobacco [...]
--- OUTSIDE RECORDS SUMMARY | 2024-05-10 18:18 | XMS_ITS | Encounter Summary ---
Author Organization [facility] Address [address] [place] [address]. [place] [address] [place] [address] Care Team Providers Care Security Specialist Name Role Phone Unavailable Primary Care Provider Unavailabl e Encounter Details Date Type Department Care Team (Late st Contact Info) Description 03/13/2015 Abstract [facility] [address] [place] [address] Edenilson Abrams MD Social History Tobacco Use Types Packs/Day [...] as of this encounter Visit Diagnoses Diagnosis Chest pain Chest pain, unspecified documented in this encounter
--- OUTSIDE RECORDS SUMMARY | 2024-05-10 18:36 | XMS_ITS | Encounter Summary ---
Author Organization [facility] Address [address] [place] [address] Care Team Providers Care Biscuit Machine Operator Name Role Phone Warren Phillips MD Unavailable [phone] Miscellaneous, Not In File Unavailable Unava ilable Nicole Lopez DO Unavailable [phone] Naomi Sanches MD Unavailable Teresita Marquez MD Primary Care Provide r Reason for Visit * Reason Onset Date Comments [facility] 05/14/2022 Encounter Details Date Type Department Care Team (Late st Contact Info) Description 05/14/2022 Telephone [facility] Primary Care at [address] [place] [address] Teresita Marquez MD [address] [place] [address] [address] [place] [address] [facility] Social History Tobacco Use Types Packs/Day Years Used Date Smoking Tobacco: Never Smokeless Tobacco: Never Alcohol Use Standard Drinks/Week Comments Not Currently 0 (1 standard drink = 0.6 oz pur e alcohol) Social Connection and Isolat ion Panel [NHANES] Answer Date Recorded In a typical week, how many times do you talk on the phone with family, friends, or neighbors? More than three times a week 01/20/2022 How often do you get togethe r with friends or relatives? Three times a week 01/20/2022 How often do you attend chur ch or lutheran services? Never 01/20/2022 Do you belong to any clubs o r organizations such as mandaeism groups, unions, fraternal or athletic groups, or school groups? No 01/20/2022 How often do you attend meet ings of the clubs or organizations you belong to? Never 01/20/2022 Are you , , di vorced, , never , or living with a partner? Never 01/20/2022 AUDIT-C Answer Date Recorded Q1: How often do you have a drink containing alcohol? Never 01/18/2022 Q2: How many drinks containi ng alcohol do you have on a typical day when you are drinking? Patient does not drink Q3: How often do you have si x or more drinks on one occasion? Never 01/18/2022 Overall Financial Resource Strain (CARDIA) Answe r Date Recorded How hard is it for you to pa y for the very basics like food, housing, medical care, and heating? Not very hard 01/20/2022 PHQ-2 Answer Date Recorded PHQ-2 Total Score (If total score is 3 or more points, staff should administer the PHQ-9) 0 02/02/2022 Hunger Vital Sign Answer Date Recorded Within the past 12 months, y ou worried that your food would run out before you got the money to buy more. Never true 01/21/20 22 Within the past 12 months, t he food you bought just didn't last and you didn't have money to get more. Never true 01/20/2022 PRAPARE - Transportation Answer Date Re corded In the past 12 months, has l ack of transportation kept you from medical appointments or from getting medications? No 01/02 In the past 12 months, has l ack of transportation kept you from meetings, work, or from getting things needed for daily living? No 01/20/2022 Comments No Sex and Gender Information Value Date Recorded Sex Assigned at Not on file Legal Sex Female 3:13 AM BUILDING MANAGER Gender Identity Not on file Sexual Orientation Not on file documented as of this encounter Miscellaneous Notes * Telephone Encounter - Jerrica Escalera MA - 05/14/2022 10:42 AM BUILDING MANAGER Attempted to contact patient to inform them about their overdue labs that need to be completed. Left a detailed message stating this and instructing patient to give the office a call back with any questions. DING MANAGER documented in this encounter Plan of Treatment Not on file documented as of this encounter Visit Diagnoses Not on filedocumented in this encounter Care Teams Biscuit Machine Operator Relationship Specialty Start Date End Date Teresita Marquez MD [address] [place] [address] [address] [place] [address] PCP - General Family Medicine 02/02/22 Warren Phillips MD Consulting Physician Gastroenterology 02/16/19 Miscellaneous, Not In File 07/23/21 Nicole Lopez DO [address] [place] [address] [address] [place] [address] Resident Family Medicine 11/22/21 Naomi Sanches MD [address] [place] [address] [address] [place] [address] Referring Physician General Surgery 11/22/21 documented as of this encounter
--- OUTSIDE RECORDS SUMMARY | 2024-05-10 18:36 | XMS_ITS | Encounter Summary ---
Author Organization [facility] Address [address] [place] [address] Care Team Providers Care Logistics Project Manager Name Role Phone Warren Phillips MD Unavailable [phone] Miscellaneous, Not In File Unavailable Unava ilable Nicole Lopez DO Unavailable Naomi Sanches MD Unavailable Teresita Marquez MD Primary Care Provide r Reason for Visit * Reason Comments paperwork for Fitness for Drivers Licens e Due to being a diabetic. Encounter Details Date Type Department Care Team (Late st Contact Info) Description 07/15/2022 2:45 PM CDT Office Visit [facility] Primary Care at [address] [place] [address] Teresita Marquez MD [address] [place] [address] [address] [place] [address] Encounter for completion of form with patient (Primary Dx); Type 1 diabetes mellitus with hyperglycemia (HCC) Social History Tobacco Use Types Packs/Day Years Used Date Smoking Tobacco: Never Smokeless Tobacco: Never Tobacco Cessation:Counseling Given: Not Answered Alcohol Use Standard Drinks/Week Comments Not Currently [...] often do you attend chur ch or buddhism services? Never 01/20/2022 Do you belong to any clubs o r organizations such as mosque groups, unions, fraternal or athletic groups, or [...] points, staff should administer the PHQ-9) 0 07/15/2022 Hunger Vital Sign Answer Date Recorded Within [...] on file Legal Sex Female 3:13 AM WAFER POLISHER Gender Identity Not on file Sexual Orientation Not on file documented as of this encounter Last Filed Vital Signs Vital Sign Reading Time Taken Comments Blood Pressure 116/78 07/15/2022 2:54 PM CDT Pulse 88 07/15/2022 2:54 PM CDT Temperature 36.3 ??C (97.4 ??F) 07/15/2022 2:54 PM CD T Respiratory Rate 16 07/15/2022 2:54 PM CDT Oxygen Saturation 100% 07/15/2022 2:54 PM CDT Inhaled Oxygen Concentration - - Weight 81.4 kg (179 lb 6.4 oz) 07/15/2022 2:54 P M CDT Height 157.5 cm (5' 2 ) 07/15/2022 2:54 PM CDT Body Mass Index 32.81 07/15/2022 2:54 PM CDT documented in this encounter Progress Notes * Teresita Marquez MD - 07/15/2022 2:45 PM CDT Images from the original note were not included. Subjective/Objective Patient ID: Karina Fuchs is a 27 y.o. female. Chief Complaint paperwork for Fitness for Drivers License (Due to being a diabetic. /) HPI She is coming in as she needs a form for her driving license because of her diabetes. Review of Systems Constitutional: Negative for chills and fever. Respiratory: Negative for cough and shortness of breath. Cardiovascular: Negative for chest pain. Gastrointestinal: Negative for abdominal pain. Vitals: 07/15/22 1454 BP: 116/78 BP Location: Left arm Patient Position: Sitting Pulse: 88 Resp: 16 Temp: 36.3 ??C (97.4 ??F) SpO2: 100% Weight: 81.4 kg (179 lb 6.4 oz) Height: 157.5 cm (5' 2 ) No visits with results within 1 Month(s) from this visit. Latest known visit with results is: Admission on 03/10/2022, Discharged on 03/10/2022 Component Date Value Glucose, POC 03/09/2022 182 (H) Sodium 03/09/2022 134 (L) Potassium, pl 03/09/2022 4.5 Chloride 03/09/2022 98 CO2 03/09/2022 16 (L) Anion gap 03/09/2022 20 (H) BUN 03/09/2022 23 Creatinine 03/09/2022 0.41 (L) Glucose 03/09/2022 198 Calcium 03/09/2022 9.6 Bilirubin, total 03/09/2022 0.9 Protein, pl 03/09/2022 7.5 Albumin 03/09/2022 4.5 Alk phos 03/09/2022 93 ALT 03/09/2022 10 AST 03/09/2022 15 eGFR 03/09/2022 140 pH, Venous 03/10/2022 7.40 PCO2, Venous 03/10/2022 28 (L) PO2, Venous 03/10/2022 206 HCO3 Venous, Calculated 03/10/2022 17 (L) BE, venous 03/10/2022 -6 WBC 03/10/2022 15.5 (H) Hgb 03/10/2022 14.3 Hct 03/10/2022 41.7 Plt 03/10/2022 195 MPV 03/10/2022 10.0 RBC 03/10/2022 4.94 MCV 03/10/2022 84.4 MCH 03/10/2022 28.9 MCHC 03/10/2022 34.3 RDW CV 03/10/2022 13.5 RDW SD 03/10/2022 41.6 NRBC abs 03/10/2022 0.00 Lactate 03/10/2022 1.4 hCG, quant 03/10/2022 <5.0 Color, ur 03/10/2022 Yellow Clarity, ur 03/10/2022 Clear Specific gravity, ur 03/10/2022 1.035 (H) pH, urine 03/10/2022 5.5 Protein, ur ql 03/10/2022 1+ (A) Glucose, ur ql 03/10/2022 4+ (A) Ketones, ur 03/10/2022 4+ (A) Bilirubin, ur 03/10/2022 Negative Blood, ur 03/10/2022 Negative Urobilinogen, ur 03/10/2022 <2.0 Nitrite, ur 03/10/2022 Negative Leukocyte esterase, ur 03/10/2022 Negative UA reflex comment 03/10/2022 Reflex to microscopic UA will be performed. Beta-Hydroxybutyrate 03/10/2022 4.7 (H) Glucose, POC 03/10/2022 206 (H) Neutrophil abs 03/10/2022 13.2 (H) Imm gran abs 03/10/2022 0.1 Lymphocyte abs 03/10/2022 1.3 Monocyte abs 03/10/2022 0.8 Eosinophil abs 03/10/2022 0.0 Basophil abs 03/10/2022 0.0 Neutrophil pct 03/10/2022 85.3 Imm gran pct 03/10/2022 0.5 Lymphocyte pct 03/10/2022 8.5 Monocyte pct 03/10/2022 5.3 Eosinophil pct 03/10/2022 0.1 Basophil pct 03/10/2022 0.3 Glucose, POC 03/10/2022 205 (H) Glucose, POC 03/10/2022 200 (H) WBC, ur 03/10/2022 6-10 (A) RBC, ur 03/10/2022 0-2 Epithelial cells, squamo* 03/10/2022 1-5 Bacteria, ur 03/10/2022 Trace (A) Mucous, ur 03/10/2022 Present (A) Culture Reflex Comment 03/10/2022 Reflex conditions for urine culture (WBC >10) not met. Physical Exam Constitutional: General: She is not in acute distress. Appearance: She is well-developed. Neck: Thyroid: No thyromegaly. Cardiovascular: Rate and Rhythm: Normal rate and regular rhythm. Heart sounds: Normal heart sounds. No murmur (no edema) heard. Pulmonary: Effort: Pulmonary effort is normal. No respiratory distress. Breath sounds: Normal breath sounds. No wheezing or rales. Musculoskeletal: Cervical back: Normal range of motion and neck supple. Lymphadenopathy: Cervical: No cervical adenopathy (no bruits). Assessment/Plan Diagnoses and all orders for this visit: Encounter for completion of form with patient (Primary) Assessment & Plan: Forms filled out and given back to the patient Type 1 diabetes mellitus with hyperglycemia (HCC) Assessment & Plan: The patient was counseled on a heart-healthy, diabetic-friendly diet, as well as life-style modification. Education provided on the diagnosis and risks of the disease. We will continue to monitor routine labs. Additionally, She was counseled on routine diabetic eye exams, foot exams, and other preventive care. Most recent A1c on file: Continue regimen of glargine 25 units nightly and sliding scale A1c ordered today Micro/Cr ur ratio ordered Continue following with endocrinology F/u in 3 months Side effects, risks, interactions reviewed with patient. Indications for testing discussed. Any further problems to contact us. She was told what to look out for and verbalized understanding. The patient was given the opportunity to have all questions answered today and was in agreement with the plan of care. Teresita Marquez MD documented in this encounter Miscellaneous Notes * Assessment & Plan Note - Teresita Marquez MD - 07/15/2022 3:04 PM CDT Associated Problem(s): Type 1 diabetes mellitus with hyperglycemia (HCC) The patient was counseled on a heart-healthy, diabetic-friendly diet, as well as life-style modification. Education provided on the diagnosis and risks of the disease. We will continue to monitor routine labs. Additionally, She was counseled on routine diabetic eye exams, foot exams, and other preventive care. Most recent A1c on file: Continue regimen of glargine 25 units nightly and sliding scale A1c ordered today Micro/Cr ur ratio ordered Continue following with endocrinology F/u in 3 months * Assessment & Plan Note - Teresita Marquez MD - 07/15/2022 3:04 PM CDT Associated Problem(s): Encounter for completion of form with patient Forms filled out and given back to the patient documented in this encounter Plan of Treatment Not on file documented as of this encounter Visit Diagnoses Diagnosis Encounter for completion of form with patient- Primary Type 1 diabetes mellitus with hyperglycemia (HCC) documented in this encounter Discontinued Medications Medication Sig Discontinue Reason Start Date End Da te insulin glargine 100 unit/mL vial for injection Inject 25 Units under the skin nightly Patient Discharge 07/15/2022 documented as of this encounter Care Teams Logistics Project Manager Relationship Specialty Start Date End Date Teresita Marquez MD [address] [place] [address] PCP - General Family Medicine 02/02/22 Warren Phillips MD Consulting Physician Gastroenterology 02/16/19 Miscellaneous, Not In File 07/23/21 Nicole Lopez DO [address] [place] [address] Resident Family Medicine 11/22/21 Naomi Sanches MD [address] [place] [address] Referring Physician General Surgery 11/22/21 documented as of this encounter
--- OUTSIDE RECORDS SUMMARY | 2024-05-10 18:36 | XMS_ITS | Encounter Summary ---
Author Organization [facility] Address [address] [place] [address] Care Team Providers Care Addictions Therapist Name Role Phone Warren Phillips MD Unavailable [phone] Miscellaneous, Not In File Unavailable Unava ilable Nicole Lopez DO Unavailable Naomi Sanches MD Unavailable Teresita Marquez MD Primary Care Provide r Encounter Details Date Type Department Care Team (Late st Contact Info) Description 03/09/2023 Telephone [facility] Primary Care at [address] [place] [address] Teresita Marquez MD [address] [place] [address] [address] [place], [place] [id number] Social History Tobacco Use Types Packs/Day Years [...] often do you attend chur ch or rastafarian services? Never 01/20/2022 Do you belong to any clubs o r organizations such as voodoo groups, unions, fraternal or athletic groups, or [...] things needed for daily living? No 01/20/2022 Personal Safety Answer Date Recorded Have you ever been in or are you currently in a harmful physical or emotional relationship or is someone making you feel afraid or unsafe? Denies 07/17/2022 Comments No Sex and Gender Information Value Date Recorded Sex Assigned at Not on file Legal Sex Female 3:13 AM PRODUCT DEVELOPMENT DIRECTOR Gender Identity Not on file Sexual Orientation Not on file documented as of this encounter Miscellaneous Notes * Telephone Encounter - Jd Daley - 03/09/2023 10:51 AM CST No show letter sent to pt regarding 02/04/2023 appt. NB 03/09/2023 UCT DEVELOPMENT DIRECTOR documented in this encounter Plan of Treatment Not on file documented as of this encounter Visit Diagnoses Not on filedocumented in this encounter Care Teams Addictions Therapist Relationship Specialty Start Date End Date Teresita Marquez MD [address] [place] [address] [address] [place] [address] PCP - General Family Medicine 02/02/22 Warren Phillips MD Consulting Physician Gastroenterology 02/16/19 Miscellaneous, Not In File 07/23/21 Nicole Lopez DO [address] [place] [address] [address] [place] [address] Resident Family Medicine 11/22/21 Naomi Sanches MD [address] [place] [address] [address] [place] [address] Referring Physician General Surgery 11/22/21 documented as of this encounter
--- OUTSIDE RECORDS SUMMARY | 2024-05-10 18:36 | XMS_ITS | Clinical Summary ---
Author Organization [facility] Address [address] [place] [address] Care Team Providers Care Engagement Specialist Name Role Phone Warren Phillips MD Unavailable [phone] Miscellaneous, Not In File Unavailable Unava ilable Nicole Lopez DO Unavailable Naomi Sanches MD Unavailable Teresita Marquez MD Primary Care Provide r Allergies No known active allergies Medications insulin lispro (HumaLOG) 100 unit/mL injection Inject under the skin 3 (three) times a day before meals Uses per sliding scale 1 unit per every 7-8 grams of carb max of 50 units per day Active metoclopramide (REGLAN) 10 mg tablet Take 1 tablet (10 mg total) by mouth every 6 (six) hours Take as directed for nausea. Collaborating physician Cody Case MD 30 tablet 3 Active nitrofurantoin monohydrate (MACROBID) 100 mg capsule Take 1 capsule (100 mg total) by mouth 2 (two) times a day Antibiotic to treat urinary tract infection. Collaborating physician Cody Case MD 10 capsule 3 Active Active Problems Problem Noted Date Diagnosed Date before 22 weeks with retention of de ad fetus 07/17/2022 Urinary tract infection in female 07/17/2022 Encounter for completion of form with patient Assessment & Plan (07/15/2022 3:04 PM CDT): Forms filled out and given back to the patient Encounter for wellness examination 02/02/2022 Assessment & Plan (02/02/2022 9:42 AM CDT): Ordered CBC, cmp, lipid, hgb a1c, HIV, hep c, TSH, and free t4 albumin cr urine Pap smear: referral to ob given F/u in 1 year for annual Nausea and vomiting, unspecified vomiting type 0 01/18/2022 Hyponatremia 11/21/2021 Constipation 11/21/2021 Nausea and vomiting 11/20/2021 Thrombocytopenia 10/28/2021 Leukocytosis 04/29/2021 Assessment & Plan (04/29/2021 8:51 AM STAFFING SPECIALIST): This may be reactive, no source of infection. -pending urine cultures, pending blood culture -sterile pyuria on urinalysis Altered mental status 03/04/2021 Diabetic ketoacidosis with c jorge associated with type 1 diabetes mellitus ([facility]) 11/16/2020 Marijuana abuse 11/16/2020 Intractable vomiting 03/13/2020 T1DM in 03/06/2020 Overview (03/07/2020): - History DKA (multiple admission during and outside of ) - Pre- regimen: Humalog 1u:8carbs TID before meals, Basaglar 14u qHS, CF 1:50 over 150 - Last Hgb A1c: POCA1c 03/07 7.8. 03/07: We discussed the implications of T1DM and . We discussed that favorable outcomes in the setting of overt diabetes are possible with close monitoring. I counseled pt about risks of hyperglycemia and including increased rates of SAB, anomalies (10-15% risk given A1C of 7.7%), macrosomia, shoulder dystocia, IUGR, polyhydramnios, labor, delivery, preeclampsia, need for operative delivery, hypoglycemia/RDS/electrolyte abnormalities, and stillbirth. Preconception A1c is elevated, placing her at increased risk for malformations (15%), so we discussed the plan for detailed anatomy US with possible echocardiogram. We also addressed the risk of DKA and the risk of severe maternal morbidity, SAB and stillbirth associated with DKA in . We discussed that DKA can occur in at a much lower BS (as low as 200). I reviewed the mangement plan for women with diabetes which includes: a baseline Ophtho exam, preE labs, and 24 hour urine; frequent visits, regimentation of lifestyle and meals, as well as CBG monitoring to optimize glycemic control and achieve fasting BS of 70-95 mg/dl and 1hr pp of < 130-140 mg/dL; serial U/S for growth after anatomy US; testing at 32 weeks gestation or sooner prn; delivery by 39 weeks gestation or sooner. If the EFW at term is greater than 4500gm a primary C/S should be offered to reduce the risk of permanent brachial plexus injury. Finally I reviewed that excellent blood sugar control decreases the risk of these complications. Patient seen by DM educator. She would like to try and get a CGM and is also interested in an insulin pump. Tried these in the past but unable to obtain due to insurance. Will work on obtaining these for the patient. Patient would like to continue co-management with [facility] and Endocrinology. Pt to call [employer] and see if they are comfortable treating patients during , and will let us know. PLAN 03/07: Given that the patient does not yet have a determined viable IUP, will wait for confirmation prior to ordering IOB labs and baseline workup. Will however continue to work on glycemic control. CURRENT REGIMEN: Humalog 1u:8carbs TID before meals, Basaglar 14u qHS, CF 1:50 over 120 Plan: [x] Risks and management in previously discussed [] Baseline preE labs [] Baby aspirin to start at 12 weeks [] Baseline EKG [] Opthalmology referral [] Specialized anatomy scan at 18-20 weeks [] echo if Hgb A1c >8.5 [] Serial growth ultrasound [] Twice weekly surveillance starting at 32 weeks [] Delivery at 37-39 weeks pending glycemic control. An insulin drip will likely be required during labor [] A1c likely to be rechecked via card seller but if not, will check qtrimester Noncompliance with medication regimen 04/26/2019 Tachycardia 03/24/2019 Diabetic gastroparesis ([facility]) 02/14/2019 Depression 02/11/2019 Hypokalemia 11/08/2018 Assessment & Plan (11/08/2018 5:11 AM CDT): Will correct with KCl 40 mg IV as needed Cannabinoid hyperemesis syndrome 01/02/2018 Assessment & Plan (01/02/2018 2:40 AM CDT): Nausea vomiting. Patient presents with ketonuria, however ABGs are consistent with metabolic alkalosis. Less likely patient is symptoms to be related to DKA. Will correct underlying causes. Start on IV fluids with normal saline, will bolus 1 L in addition to another L of bolus with normal saline in the emergency department. Them follow with lactated Ringer solution. Strict I&Os. Reglan and Zofran as needed for nausea and vomiting. Dehydration 01/02/2018 Assessment & Plan (11/08/2018 5:10 AM CDT): Continue IV fluids with D5 half-normal saline Monitor strict I&Os Assessment & Plan (01/02/2018 2:43 AM CDT): Urine is not concentrated, however patient clinically looks dehydrated she did with dry lips. Bolus with normal saline, and follow with LR Strict I&Os Monitor kidney function with daily BMP Repeat ABGs at 5:00 a.m. Will check for beta hydroxybutyrate Uncontrolled type 1 diabetes mellitus with hyperglycemia ([facility]) 01/02/2018 Assessment & Plan (11/27/2019 5:40 AM CDT): Sugars are in the 200s and slowly improving with insulin. Patient is on Lantus 10 units nightly however as she is actively vomiting, will reduce dose to 5 units nightly. Will monitor on a mid dose sliding scale. Patient follows with Dr. Sanches. Assessment & Plan (01/02/2018 2:50 AM CDT): Blood sugars are elevated Reportedly patient had been compliant with her medications. ABGs were consistent with alkalosis, less likely to be DKA state. Will admit per hyperglycemia protocol D/c IV fluids with dextrose Patient is dehydrated-will bolus normal saline Continue with Lantus and Humalog Will start on medium dose insulin sliding scale. Type 1 diabetes mellitus with ketoacidosis witho ut coma Hypophosphatemia Intractable vomiting with nausea Acute renal failure Type 1 diabetes mellitus with hyperglycemia Overview (01/29/2022): T1DM Assessment & Plan (07/15/2022 3:04 PM CDT): The patient was counseled on a heart-healthy, [...] following with endocrinology F/u in 3 months Assessment & Plan (02/02/2022 9:44 AM CDT): The patient was counseled on a heart-healthy, [...] following with endocrinology F/u in 3 months Resolved Problems Problem Noted Date Diagnosed Date Resolved Date Currently in first trimester with unknown gestational age 1103/26/2020 01/21/2022 Supervision of high-risk 03/06/2020 01/21/2022 Overview (03/07/2020): First Trimester: [x] Dating Criteria: 1T US - viability not yet confirmed [] Labs: to be obtained after viable IUP confirmed [] Genetic Screening: [] Hgb electrophoresis (if indicated): [] GC/CT/trich [] UCx: [] Pap: pt reports normal in May 2019, pt to obtain records and bring to [facility] [] ASA ppx [] PNBHS referral (if indicated) [] Provided info on classes 2nd Trimester: [] Anatomy ultrasound [] CBC [] 1hr gtt at 24-28wks: [] Flu Shot (Jan-Dec) [] Tdap (27-36wks) [] Rhogam (if Rh neg): 3rd Trimester: [] CBC/HIV/RPR/T&S [] GBS at 36 weeks [] GC/CT/trich Counseling: [] Method of delivery: [] Method of contraception: [] Method of feeding: Hypomagnesemia 04/25/2019 03/06/2020 Metabolic acidosis 04/25/2019 0 Pharyngitis 04/25/2019 03/06/2020 Hypophosphatemia 03/24/2019 03/06/2020 Diabetic ketoacidosis withou t coma associated with type 1 diabetes mellitus ([facility]) 03/24/2019 11/20/2021 Assessment & Plan (04/29/2021 8:50 AM STAFFING SPECIALIST): Patient with multiple admissions for DKA. Patient states that she has been compliant with her insulin and has not missed any doses. Unclear trigger: Viral panel negative On admission patient's glucose was 259, anion gap of 23. Lactate normal. Urinalysis with 4+ ketones, 2+ leukocyte esterase pending the urine culture -beta hydroxybutyrate 1.5 -pot annealer -consulted Endocrine appreciate assistance possibly needing insulin pump -continue with Lantus 20 units, and lispro 3 units t.i.d. -hemoglobin A1c 6.7 Esophagitis 02/15/2019 03/06/2020 Assessment & Plan (11/27/2019 5:36 AM CDT): Patient diagnosed with ulcerative esophagitis in January 2019. She was supposed to follow-up with Dr. Phillips in 1 month's time after discharge but does not seem like she has. She also is not on any Protonix. Will start patient on IV Protonix. May need GI evaluation during this stay. Lactic acidosis 02/11/2019 03/06/2020 Assessment & Plan (11/27/2019 5:36 AM CDT): Slowly trending down. Patient still actively vomiting. Continue with IV fluids. Hematemesis 02/11/2019 03/06/2020 Bilious vomiting with nausea 02/10/2019 03/06/2020 Overview (02/13/2019): Added automatically from request for surgery [id number] Assessment & Plan (11/27/2019 5:37 AM CDT): Patient has a history of gastroparesis and ulcerative esophagitis. She denies any bloody or coffee-ground emesis. Will start patient on IV Reglan and Protonix. If this regimen does not help, may need GI consult. Continue to monitor. Supportive care. NPO for now. Will also check a urine drug screen. Hyperemesis gravidarum with metabolic disturbance 11/08/2018 03/06/2020 Assessment & Plan (11/08/2018 5:11 AM CDT): Continue with IV Reglan Sepsis due to gram-negative UTI ([facility]) 05/27/2018 03/06/2020 Metabolic alkalosis 01/02/2018 03/06/20 20 Assessment & Plan (01/02/2018 2:44 AM CDT): ABGs are consistent with metabolic alkalosis, most likely due to persistent nausea and vomiting. The Replete IV fluids Check for electrolytes, replete as needed. Ketonuria 01/02/2018 03/06/2020 Assessment & Plan (01/02/2018 2:51 AM CDT): Ketonuria present. Patient with persistent nausea and vomiting possibly starvation ketones versus DKA related. Will confirm the test with beta hydroxy butyrate Continue with IV fluids and insulin as stated above Strict I&Os Thrombocytosis 01/02/2018 03/06/2020 Assessment & Plan (01/02/2018 2:53 AM CDT): Slightly elevated platelet counts. Possibly acute reactant reaction due to possibly gastroenteritis versus DKA Will repeat CBC in a.m. Gastroenteritis 03/06/2020 Sinus tachycardia 03/06/2020 Normocytic anemia 03/06/2020 Less than 8 weeks gestation of 03/06/2020 Diabetic ketoacidosis withou t coma associated with type 1 diabetes mellitus ([facility]) 03/06/2020 Increased lactic acid level 03/06/2020 Immunizations Name Administration Dates Next Due DTP / HiB 1996,1996 DTaP 10/31/2001 Hep A, Ped Unspecified 07/14/2010 Hep A, Pediatric 03/13/2011,07/14/2010 Hep B, Adolescent or Pediatric 1996,1996 IPV 11/01/2001 Influenza, Quadrivalent, Spl it, Intramuscular 05/26/2018 Influenza, Trivalent, IM (MDV) 01/01/2017,2016 Influenza, Unspecified 07/15/2022(Deferr ed: Patient Refused),07/01/2021(Deferred: Patient Refused) MMR 11/01/2001 Meningococcal C Conjugate 12/11/2009 Meningococcal MCV4P (Menactra) 10/25/2012 OPV 1996,1996 Pfizer SARS-CoV-2 Monovalent Vaccination (12+ Yrs) PURPLE 05/11/2021,03/26/2021(Deferred: Patient Refused) Tdap 09/09/2016,12/11/2009 Varicella 07/14/2010 Surgical History Surgery Date Site/Laterality Comments TONSILLECTOMY 05/03/2002 - 05/02/2003 Bilateral SECTION, CLASSIC 05/03/2016 - 05/02/2017 DILATION AND CURETTAGE OF UTERUS Medical History Medical History Date Comments Depression Miscarriage Diabetes mellitus ([facility]) T1DM Diabetic ketoacidosis ([facility]) ([facility]) Cannabinoid hyperemesis syndrome Dehydration 01/02/2018 Uncontrolled type 1 diabetes mellitus with hyperglycemia ([facility]) ([facility]) 01/02/2018 Family History Medical History Relation Name Comments Autism Brother Anemia Mother Relation Name Status Comments Brother Alive Father Alive Mother Alive Sister Alive Social History Tobacco Use Types Packs/Day [...] often do you attend chur ch or episcopalian services? Never 01/20/2022 Do you belong to [...] on file Legal Sex Female 3:13 AM STAFFING SPECIALIST Gender Identity Not on file Sexual Orientation Not on file Obstetrics History Para Term AB IAB SAB Ectopic Multiple Livin g Live Births 3 1 1 2 2 1 1 Date Outcome GA Total Labor Labor/2nd/3rd Weight Sex Type Anes PTL Estelle A1 A5 Name Clin 017 Term 3.204 kg (7 lb 1 oz) F CS-Un spec Living Complications: Intolera nce,Cephalopelvic Disproportion 019 SAB 10w 0d D&C 2020 SAB 6w1 d D&C Comments G1 - Hospitalized for DKA x 3 during Last Filed Vital Signs Vital Sign Reading Time Taken Comments Blood Pressure 141/82 07/17/2022 6:46 PM CDT Pulse 113 07/17/2022 6:46 PM CDT Temperature 36.7 ??C (98.1 ??F) 07/17/2022 1:09 PM CD T Respiratory Rate 18 07/17/2022 6:46 PM CDT Oxygen Saturation 100% 07/17/2022 6:46 PM CDT Inhaled Oxygen Concentration - - Weight 81.6 kg (180 lb) 07/17/2022 1:09 PM CDT Height 157.5 cm (5' 2 ) 07/15/2022 2:54 PM CDT Body Mass Index 32.92 07/15/2022 2:54 PM CDT Plan of Treatment Health Maintenance Due Date Last Done Comments Albumin Creatinine Ratio, Urine 1996 Cervical Cancer Screening 1996 Foot Exam 1996 Hepatitis C Screening 1996 Pneumococcal vaccine <65 (1 of 2 - PCV) 2002 Dilated Eye Exam 2006 Varicella Vaccines (2 of 2 - 13+ 2-dose series) 08/11/2010 07/14/2010 Lipid Panel 02/08/2018 02/08/2017, 07/01, 07/01/2012 Hemoglobin A1C 07/29/2022 01/29/2022, 10/02, 04/28/2021, Additional history exists TSH Level 01/29/2023 01/29/2022, 11/0 06/2020, 03/21/2020, Additional history exists Regular Well Visit/Exam 18-64 02/02/2023 02/02/2022 Depression Screening 07/16/2023 07/15/2022, 02/02/2022, 03/12/2020, Additional history exists eGFR 07/18/2023 07/17/2022, 11/0 10/2021, 01/29/2022, Additional history exists Covid-19 Vaccine ( season) 2024 05/11/2021 Influenza Vaccine (#1) 2024 9, 01/01/2017, 05/13/2016 DTaP/Tdap/Td Vaccine (6 - Td or Tdap) 09/09/2026 09/09/2016, 12/11/2009, 10/31/2001, Additional history exists HPV Vaccines Aged Out No longer eligi ble based on patient's age to complete this topic Procedures Procedure Name Priority Date/Time Associated Diagnosis Comments EGFR STAT 07/17/2022 1:22 PM CDT HEMOGLOBIN A1C Routine 01/29/2022 10:34 PM CDT THYROID FUNCTION CASCADE Routine 01/29/2022 10:34 PM CDT LIPID PANEL Routine Gen Lab 02/08/2017 8:46 PM CDT from Last 3 Months or Most Recently Relevant to Health Maintenance Results * eGFR (07/17/2022 1:22 PM CDT) eGFR 137 mL/min/1. 73 m2 TOMY SAHU ([place]) Comment: Interpretive Data Reference Interval Normal ?>/= 90 mL/min/1.73m2 Mildly decreased* ? 60 - 89 mL/min/1.73m2 Mildly to moderately decreased ?45 - 59 mL/min/1.73m2 Moderately to severely decreased ??30 - 44 mL/min/1.73m2 Severely decreased ?15 - 29 mL/min/1.73m2 Kidney Failure ?< 15 ??mL/min/1.73m2 *Relative to young adult level Estimated glomerular filtration rate is determined by the 2020 CKD-EPI equation recommended by the National Kidney Foundation (A Unifying Approach to GFR Estimation: Recommendations of the NKF-ASK Task Force on Reassessing the Inclusion of Race in Diagnosing Kidney Disease, JASN 2020). The CKD-EPI equation should not be used for patients with unstable renal function and has not been validated in children and those over 70. Current interpretive data was last reviewed 2021. Blood 07/17/2022 1:22 PM CDT 07/17/2022 1:29 PM CDT us Dre Mancuso MD LAB BLOOD ORDERABLES Final Res ult Performing Organization Address City/[facility]/ZIP Co de Phone Number TOMY SAHU ([place]) [address] [facility] [employer] (acquired by [employer] in 2014) [place] [address] * TSH reflex to free T4 (01/29/2022 10:34 PM CDT) TSH 1.69 0.30 - 4.20 mcIUnit/mL TOMY SAHU ([place]) Blood 01/29/2022 10:3 4 PM CDT 01/29/2022 10:41 PM CDT us Gio Sewell MD LAB BLOOD ORDERABLES Final Re sult Performing Organization Address [facility]/ZIP Co de Phone Number TOMY SAHU ([place]) [address] [facility] [employer] (acquired by [employer] in 2014) [place] [address] * (ABNORMAL) Hemoglobin A1c (01/29/2022 10:34 PM CDT) Hgb A1C 6.6(H) 4.0 - 5.6 % TOMY SAHU ([place]) Estimated Average Glucose 143 mg/dL TOMY SAHU ([place]) Comment: The ADA recommends reporting an estimated Average Glucose (eAG) with all Hemoglobin A1c results using the equation derived from a study of 507 normal and diabetic adults. ??Minority populations were underrepresented and children were not included. ?? (Diabetes Care 31:0901-7327, 2008). ??The eAG is not equivalent to a fasting glucose. Blood 01/29/2022 10:3 4 PM CDT 01/29/2022 10:41 PM CDT us Gio Sewell MD LAB BLOOD ORDERABLES Final Re sult TOMY [facility] ([place]) [address] [facility] Department [place] [address] * Lipid panel (02/08/2017 8:46 PM CDT) Cholesterol 160 30 - 200 mg/dL TOMY MITCHELL Comment: Interpretive Data Desirable: ?<200 mg/dL Borderline high: ??200-239 mg/dL High: ? > or = 240 mg/dL Literature Reference: National Cholesterol Education Program (NCEP) Expert Panel on Detection, Evaluation, and Treatment of High Blood Cholesterol in Adults (Adult Treatment Panel III). ??Circulation 2004; 110:227. Current interpretive data was last revised on 2015. Triglycerides 66 0 - 150 mg/dL TOMY MITCHELL Comment: Interpretive Data Desirable: ? < 150 mg/dL Borderline High: ? 150 - 199 mg/dL High: ?200 - 499 mg/dL Very High: ? > or = 499 mg/dL Literature Reference: See Cholesterol Current interpretive data was last revised on 2015. HDL 57 >=40 mg/dL TOMY MITCHELL Comment: Interpretive Data Less than 40 mg/dL - low; A major risk factor for heart disease. Greater than or equal to 60 mg/dL - High; ??considered protective of heart disease. Literature Reference: See Cholesterol Current interpretive data was last revised on 2015. LDL, calculated 90 10 - 129 mg/dL TOMY [facility] Comment: Interpretive Data Optimal: ? < 100 mg/dL Near Optimal: ?100 - 129 mg/dL Borderline High: ?? 130 - 159 mg/dL High: ?160 - 189 mg/dL Very high: ? > or = 190 mg/dL Literature Reference: See Cholesterol Current interpretive data was last revised on 2015. Non-HDL Cholesterol 103 mg/dL TOMY [facility] Comment: Interpretive Data When triglycerides are >200 mg/dL, non-HDL C is a secondary target of therapy, with a goal 30 mg/dL higher than the identified LDL-C goal. Reference: ??See Cholesterol Reference. Current interpretive data was last revised 2015. Blood specimen (specimen) 02/08/2017 8:46 PM CDT 02/08/2017 9:09 PM CDT us Tessacamille Pinto LAB BLOOD ORDERABLES Final Resul t [facility] [place] [address] from Last 3 Months or Most Recently Relevant to Health Maintenance Insurance [facility] [employer] [facility] [place] Advance Directives For more information, please contact: [phone] * Full Code (Latest Code Status on File) Date Activated Date Inactivated Comments 01/29/2022 6:00 PM 01/30/2022 5:36 PM * Full Code Date Activated Date Inactivated Comments 01/18/2022 11:07 PM 01/21/2022 8:17 PM * Full Code Date Activated Date Inactivated Comments 11/20/2021 3:51 AM 11/22/2021 6:21 PM * Full Code Date Activated Date Inactivated Comments 10/24/2021 11:54 AM 10/28/2021 10:05 PM * Full Code Date Activated Date Inactivated Comments 07/20/2021 3:36 PM 07/23/2021 8:41 PM Healthcare Agents on File Name Relationship Healthcare Agent [facility] Communication Karen Fuchs Mother First Alternate Health Care Agent Care Teams Engagement Specialist Relationship Specialty Start Date End Date Teresita Marquez MD [address] [place] [address] PCP - General Family Medicine 02/02/22 Warren Phillips MD Consulting Physician Gastroenterology 02/16/19 Miscellaneous, Not In File 07/23/21 Nicole Lopez DO [address] [place] [address] Resident Family Medicine 11/22/21 Namoi Sanches MD [address] [place] [address] Referring Physician General Surgery 11/22/21
--- OUTSIDE RECORDS SUMMARY | 2024-05-10 18:36 | XMS_ITS | Encounter Summary ---
Author Organization [facility] Address [address] [place] [address] Care Team Providers Care Pearl Fisherman Name Role Phone Warren Phillips MD Unavailable [phone] Miscellaneous, Not In File Unavailable Unava ilable Nicole Lpoez DO Unavailable [phone] Naomi Sanches MD Unavailable Teresita Marquez MD Primary Care Provide r Encounter Details Date Type Department Care Team (Late st Contact Info) Description 02/02/2022 Orders Only [facility] Primary Care at [address] [place] [address] Teresita Marquez MD [address] [place] [address] [address] [place], [place] [id number] Health maintenance examination (Primary Dx); Encounter for well woman exam with routine gynecological exam; Encounter for screening for cervical cancer; Uncontrolled type 1 diabetes mellitus with hyperglycemia (CMS/HCC) (HCC); Need for hepatitis C screening test; Encounter for screening for HIV Social History Tobacco Use Types Packs/Day Years [...] often do you attend chur ch or moravian services? 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 Gender Identity Not on file Sexual Orientation Not on file documented as of this encounter Miscellaneous Notes * Addendum Note - Tahira Teran CPhT - 02/02/2022 8:43 AM CDTAddended by: TAHIRA TERAN on: 02/06/2022 09:52 AM Modules accepted: Orders documented in this encounter Plan of Treatment Not on file documented as of this encounter Visit Diagnoses Diagnosis Health maintenance examination- Primary Unspecified general medical examination Encounter for well woman exam with routine gynecological exam Encounter for screening for cervical cancer Uncontrolled type 1 diabetes mellitus with hyperglycemia (CMS/HCC) (HCC) Need for hepatitis C screening test Special screening examination for other specified viral diseases Encounter for screening for HIV documented in this encounter Care Teams Pearl Fisherman Relationship Specialty Start Date End Date Teresita Marquez MD [address] [facility] [address] [place] [address] PCP - General Family Medicine 02/02/22 Warren Phillips MD Consulting Physician Gastroenterology 02/16/19 Miscellaneous, Not In File 07/23/21 Nicole Lopez DO [address] [facility] [address] [place] [address] Resident Family Medicine 11/22/21 Naomi Sanches MD [address] [facility] [address] [place] [address] Referring Physician General Surgery 11/22/21 documented as of this encounter
--- OUTSIDE RECORDS SUMMARY | 2024-05-10 18:36 | XMS_ITS | Encounter Summary ---
Author Organization [facility] Address [address] [facility] [address] [place] [address] Care Team Providers Care Firewall Security Engineer Name Role Phone Warren Phillips MD Unavailable [phone] Miscellaneous, Not In File Unavailable Unava ilable Nicole Lopez DO Unavailable Naomi Sanches MD Unavailable Teresita Marquez MD Primary Care Provide r Reason for Visit * Reason Onset Date Comments Overdue Labs 03/04/2022 Encounter Details Date Type Department Care Team (Late st Contact Info) Description 03/04/2022 Telephone [facility] Primary Care at [address] [place] [address] Teresita Marquez MD [address] [place] [address] [address] [place] [address] Overdue Labs Social History Tobacco [...] often do you attend chur ch or synagogue services? Never 01/20/2022 Do you belong to any clubs o r organizations such as roman catholic groups, unions, fraternal or athletic groups, or [...] on file Legal Sex Female 3:13 AM DEVELOPMENT EDUCATOR Gender Identity Not on file Sexual Orientation Not on file documented as of this encounter Miscellaneous Notes * Telephone Encounter - Jerrica Escalera MA - 03/04/2022 3:01 PM CDT Attempted to contact patient to inform them about their overdue labs that need to be collected. Left a detailed message stating this and informing patient about lab at [facility] and their hours of operation to complete blood work (Mon-Fri 7am-5pm, Sat 7am-12pm). documented in this encounter Plan of Treatment Not on file documented as of this encounter Visit Diagnoses Not on filedocumented in this encounter Care Teams Firewall Security Engineer Relationship Specialty Start Date End Date Teresita Marquez MD [address] [place] [address] [address] [place] [address] PCP - General Family Medicine 02/02/22 Warren Phillips MD Consulting Physician Gastroenterology 02/16/19 Miscellaneous, Not In File 07/23/21 Nicole Lopez DO [address] [place] [address] [address] [place] [address] Resident Family Medicine 11/22/21 Naomi Sanches MD [address] [place] [address] [address] [place] [address] Referring Physician General Surgery 11/22/21 documented as of this encounter
--- OUTSIDE RECORDS SUMMARY | 2024-05-10 18:36 | XMS_ITS | Referral Summary ---
Author Organization [facility] Address [address] [place] [address] Care Team Providers Care Acquisition Marketing Coordinator Name Role Phone Warren Phillips MD Unavailable [phone] Miscellaneous, Not In File Unavailable Unava ilable [...] 04/29/2021 Assessment & Plan (04/29/2021 8:51 AM INSTALLER): This may be reactive, no source of infection. -pending urine cultures, pending blood culture -sterile pyuria on urinalysis Altered mental status 03/04/2021 Diabetic ketoacidosis with c jorge associated with type 1 diabetes mellitus ([facility]) 11/16/2020 Marijuana abuse 11/16/2020 Intractable vomiting 03/13/2020 [...] with [facility] and Endocrinology. Pt to call [facility] and see if they are comfortable treating [...] [] A1c likely to be rechecked via wolf hunter but if not, will check qtrimester Noncompliance with medication regimen 04/26/2019 Tachycardia 03/24/2019 Diabetic gastroparesis ([facility]/HCC) 02/14/2019 Depression 02/11/2019 Hypokalemia 11/08/2018 Assessment [...] Uncontrolled type 1 diabetes mellitus with hyperglycemia ([facility]) 01/02/2018 Assessment & Plan (11/27/2019 5:40 AM [...] coma associated with type 1 diabetes mellitus ([facility]) 03/24/2019 11/20/2021 Assessment & Plan (04/29/2021 8:50 AM INSTALLER): Patient with multiple admissions for DKA. Patient states that she has been compliant with her insulin and has not missed any doses. Unclear trigger: Viral panel negative On admission patient's glucose was 259, anion gap of 23. Lactate normal. Urinalysis with 4+ ketones, 2+ leukocyte esterase pending the urine culture -beta hydroxybutyrate 1.5 -asthma educator -consulted Endocrine appreciate assistance possibly needing insulin [...] (02/13/2019): Added automatically from request for surgery [id number] Assessment & Plan (11/27/2019 5:37 AM CDT): [...] IV Reglan Sepsis due to gram-negative UTI ([facility]) 05/27/2018 03/06/2020 Metabolic alkalosis 01/02/2018 03/06/20 20 [...] coma associated with type 1 diabetes mellitus ([facility]) 03/06/2020 Increased lactic acid level 03/06/2020 Immunizations [...] 05/11/2021,03/26/2021(Deferred: Patient Refused) Tdap 09/09/2016,12/11/2009 Varicella 07/14/2010 Social History Tobacco Use Types Packs/Day Years [...] often do you attend chur ch or mormonism services? Never 01/20/2022 Do you belong to any clubs o r organizations such as evangelical groups, unions, fraternal or athletic groups, or [...] on file Legal Sex Female 3:13 AM INSTALLER Gender Identity Not on file Sexual Orientation [...] 07/15/2022 2:54 PM CDT Plan of Treatment Not on file Procedures Procedure Name Priority Date/Time Associated Diagnosis [...] 1:22 PM CDT 07/17/2022 1:29 PM CDT Dre Mancuso MD LAB BLOOD ORDERABLES Final Res ult [facility] ([place]) [address] [facility] [place] [address] * TSH reflex to free T4 (01/29/2022 10:34 PM CDT) TSH 1.69 0.30 - 4.20 mcIUnit/mL [facility] ([place]) Blood 01/29/2022 10:3 4 PM CDT 01/29/2022 10:41 PM CDT Result [facility] Gio Sewell MD LAB BLOOD ORDERABLES Final Re sult Performing Organization Address City/[facility]/ZIP Co de Phone Number [facility] ([place]) [address] [place] [address] [place] [address] * (ABNORMAL) Hemoglobin A1c (01/29/2022 10:34 PM CDT) Hgb A1C 6.6(H) 4.0 - 5.6 % [facility] ([place]) Estimated Average Glucose 143 mg/dL [facility]) Comment: The ADA recommends reporting an estimated Average Glucose (eAG) with all Hemoglobin A1c results using the equation derived from a study of 507 normal and diabetic adults. ??Minority populations were underrepresented and children were not included. ?? (Diabetes Care 31:6143-5231, 2008). ??The eAG is not equivalent to a fasting glucose. Blood 01/29/2022 10:3 4 PM CDT 01/29/2022 10:41 PM CDT Gio Sewell MD LAB BLOOD ORDERABLES Final Re sult [facility] [place]) [address] [facility] [place] [address] * Lipid panel (02/08/2017 8:46 PM CDT) Cholesterol 160 30 - 200 mg/dL [facility] Comment: Interpretive Data Desirable: ?<200 mg/dL Borderline high: ??200-239 mg/dL High: ? > or = 240 mg/dL Literature Reference: National Cholesterol Education Program (NCEP) Expert Panel on Detection, Evaluation, and Treatment of High Blood Cholesterol in Adults (Adult Treatment Panel III). ??Circulation 2004; 110:227. Current interpretive data was last revised on 2015. Triglycerides 66 0 - 150 mg/dL [facility] Comment: Interpretive Data Desirable: ? < 150 mg/dL Borderline High: ? 150 - 199 mg/dL High: ?200 - 499 mg/dL Very High: ? > or = 499 mg/dL Literature Reference: See Cholesterol Current interpretive data was last revised on 2015. HDL 57 >=40 mg/dL [facility] Comment: Interpretive Data Less than 40 mg/dL - low; A major risk factor for heart disease. Greater than or equal to 60 mg/dL - High; ??considered protective of heart disease. Literature Reference: See Cholesterol Current interpretive data was last revised on 2015. LDL, calculated 90 10 - 129 mg/dL T[facility] Comment: Interpretive Data Optimal: ? < 100 mg/dL Near Optimal: ?100 - 129 mg/dL Borderline High: ?? 130 - 159 mg/dL High: ?160 - 189 mg/dL Very high: ? > or = 190 mg/dL Literature Reference: See Cholesterol Current interpretive data was last revised on 2015. Non-HDL Cholesterol 103 mg/dL [facility] Comment: Interpretive Data When triglycerides are >200 mg/dL, non-HDL C is a secondary target of therapy, with a goal 30 mg/dL higher than the identified LDL-C goal. Reference: ??See Cholesterol Reference. Current interpretive data was last revised 2015. Blood specimen (specimen) 02/08/2017 8:46 PM CDT 02/08/2017 9:09 PM CDT us Antonieta Pinto LAB BLOOD ORDERABLES Final Resul t TOM[facility] [address] [facility] [place] [address] from Last 3 Months or Most Recently Relevant to Health Maintenance Insurance [facility] Advance Directives For more information, please contact: [phone] * Full Code (Latest Code Status on [...] Agents on File Name Relationship Healthcare Agent Relationshi p Communication Karen Fuchs Mother First Alternate Health Care Agent Care Teams Acquisition Marketing Coordinator Relationship Specialty Start Date End Date Teresita Marquez MD [address] [facility] [address] [place] [address] PCP - General Family Medicine 02/02/22 Warren Phillips MD Consulting Physician Gastroenterology 02/16/19 Miscellaneous, Not In File 07/23/21 Nicole Lopez DO [address] [facility] [address] [place] [address] Resident Family Medicine 11/22/21 Naomi Sanches MD [address] [facility] [address] [place] [address] Referring Physician General Surgery 11/22/21
--- OUTSIDE RECORDS SUMMARY | 2024-05-10 18:36 | XMS_ITS | Encounter Summary ---
Author Organization [facility] Address [address] [facility] [address] [place] [address] Care Team Providers Care Thermal Cutting Tracer Machine Operator Name Role Phone Warren Phillips MD Unavailable [phone] Miscellaneous, Not In File Unavailable Unava ilable Nicole Lopez DO Unavailable Naomi Sanches MD Unavailable Teresita Marquez MD Primary Care Provide r Reason for Visit * Reason Comments LEVY New pt to establish AHM stay fu LEVY (dm,nausea,vomiting). Encounter Details Date Type Department Care Team (Late st Contact Info) Description 02/02/2022 8:00 AM CDT Office Visit [facility] Primary Care at [address] [place] [address] Teresita Marquez MD [address] [place] [address] [address] [place] [address] Encounter for wellness examination (Primary Dx); BMI 27.0-27.9,adult; Type 1 diabetes mellitus with hyperglycemia (HCC) Social History Tobacco Use Types Packs/Day Years Used Date Smoking Tobacco: Never Smokeless Tobacco: Never Tobacco Cessation:Counseling Given: Yes Alcohol Use Standard Drinks/Week Comments Not Currently [...] often do you attend chur ch or denominational services? Never 01/20/2022 Do you belong to [...] on file Legal Sex Female 3:13 AM SILVER CLEANER Gender Identity Not on file Sexual Orientation Not on file documented as of this encounter Last Filed Vital Signs Vital Sign Reading Time Taken Comments Blood Pressure 104/68 02/02/2022 8:10 AM CDT Pulse 109 02/02/2022 8:10 AM CDT Temperature - - Respiratory Rate 20 02/02/2022 8:10 AM CDT Oxygen Saturation 100% 02/02/2022 8:10 AM CDT Inhaled Oxygen Concentration - - Weight 69.4 kg (153 lb) 02/02/2022 8:10 AM CDT Height 157.5 cm (5' 2 ) 02/02/2022 8:10 AM CDT Body Mass Index 27.98 02/02/2022 8:10 AM CDT documented in this encounter Progress Notes * Teresita Marquez MD - 02/02/2022 8:00 AM CDT Images from the original note were not included. Subjective/Objective Patient ID: Karina Fuchs is a 26 y.o. female. Chief Complaint LEVY (New pt to establish /M stay fu LEVY (dm,nausea,vomiting).) HPI 26-year-old female with history of type 1 diabetes who is coming in for her annual visit. She was recently in the hospital on January 29 for nausea and vomiting. She was concern for DKA. She has a follow up on Wednesday with Dr. Jennings. She states that her numbers are usually between 100 to 150. She did notice that prior to her cycle starting her fingersticks will go into the 200s. No low numbers She has no concerns today. Past Medical History: Diagnosis Date ??? Cannabinoid hyperemesis syndrome ??? Dehydration 01/02/2018 ??? Depression ??? Diabetes mellitus (HCC) T1DM ??? Diabetic ketoacidosis (CMS/HCC) (HCC) ??? Miscarriage ??? Uncontrolled type 1 diabetes mellitus with hyperglycemia (CMS/HCC) (HCC) 01/02/2018 No Known Allergies Past Surgical History: Procedure Laterality Date ??? SECTION, CLASSIC 2016 ??? DILATION AND CURETTAGE OF UTERUS ??? TONSILLECTOMY Bilateral 2002 Family History Problem Relation Age of Onset ??? Anemia Mother ??? Autism Brother Social History Tobacco Use ??? Smoking status: Never ??? Smokeless tobacco: Never Substance and Sexual Activity ??? Drug use: Yes Types: Marijuana ??? Sexual activity: Yes Partners: Male Alcohol Use: Not At Risk ??? Frequency of Alcohol Consumption: Never ??? Average Number of Drinks: Patient does not drink ??? Frequency of Binge Drinking: Never Review of Systems Constitutional: Negative for appetite change, chills, fatigue, fever and unexpected weight change. HENT: Negative for hearing loss, rhinorrhea, sore throat and trouble swallowing. No odynophagia, dysphagia Eyes: Negative for visual disturbance. Respiratory: Negative for cough, chest tightness, shortness of breath and wheezing. Cardiovascular: Negative for chest pain, palpitations and leg swelling. Gastrointestinal: Negative for abdominal pain, blood in stool, constipation, diarrhea, nausea and vomiting. Endocrine: Negative for polydipsia and polyuria. Genitourinary: Negative for difficulty urinating, dysuria, frequency, hematuria and urgency. Musculoskeletal: Negative for arthralgias, back pain, gait problem, joint swelling, myalgias and neck stiffness. Skin: Negative for rash. Neurological: Negative for dizziness, syncope, weakness, light-headedness and headaches. Hematological: Negative for adenopathy. Does not bruise/bleed easily. Psychiatric/Behavioral: Negative for agitation and sleep disturbance. The patient is not nervous/anxious. Vitals: 02/02/22 0810 BP: 104/68 BP Location: Right arm Patient Position: Sitting Pulse: 109 Resp: 20 SpO2: 100% Weight: 69.4 kg (153 lb) Height: 157.5 cm (5' 2 ) Admission on 01/29/2022, Discharged on 01/30/2022 Component Date Value ??? WBC 01/29/2022 9.0 ??? Hgb 01/29/2022 13.3 ??? Hct 01/29/2022 39.0 ??? Plt 01/29/2022 520 (A) ??? MPV 01/29/2022 8.9 (A) ??? RBC 01/29/2022 4.60 ??? MCV 01/29/2022 84.8 ??? MCH 01/29/2022 28.9 ??? MCHC 01/29/2022 34.1 ??? RDW CV 01/29/2022 14.7 ??? RDW SD 01/29/2022 45.5 ??? NRBC abs 01/29/2022 0.00 ??? Sodium 01/29/2022 137 ??? Potassium, pl 01/29/2022 3.8 ??? Chloride 01/29/2022 101 ??? CO2 01/29/2022 23 ??? Anion gap 01/29/2022 13 ??? BUN 01/29/2022 17 ??? Creatinine 01/29/2022 0.45 (A) ??? Glucose 01/29/2022 218 (A) ??? Calcium 01/29/2022 9.8 ??? Bilirubin, total 01/29/2022 0.4 ??? Protein, pl 01/29/2022 7.4 ??? Albumin 01/29/2022 4.5 ??? Alk phos 01/29/2022 74 ??? ALT 01/29/2022 21 ??? AST 01/29/2022 13 ??? Glucose, POC 01/29/2022 196 (A) ??? Neutrophil abs 01/29/2022 7.4 (A) ??? Imm gran abs 01/29/2022 0.0 ??? Lymphocyte abs 01/29/2022 1.1 ??? Monocyte abs 01/29/2022 0.5 ??? Eosinophil abs 01/29/2022 0.0 ??? Basophil abs 01/29/2022 0.0 ??? Neutrophil pct 01/29/2022 81.7 ??? Imm gran pct 01/29/2022 0.4 ??? Lymphocyte pct 01/29/2022 12.2 ??? Monocyte pct 01/29/2022 5.4 ??? Eosinophil pct 01/29/2022 0.0 ??? Basophil pct 01/29/2022 0.3 ??? Sepsis Lactate 01/29/2022 1.6 ??? eGFR 01/29/2022 137 ? ? hCG, quant 01/29/2022 <5.0 ??? pH, Venous 01/29/2022 7.47 (A) ??? PCO2, Venous 01/29/2022 31 (A) ??? PO2, Venous 01/29/2022 135 ??? HCO3 Venous, Calculated 01/29/2022 22 ??? BE, venous 01/29/2022 -1 ??? Color, ur 01/29/2022 Yellow ??? Clarity, ur 01/29/2022 Clear ??? Specific gravity, ur 01/29/2022 1.034 (A) ??? pH, urine 01/29/2022 7.5 ??? Protein, ur ql 01/29/2022 Negative ??? Glucose, ur ql 01/29/2022 4+ (A) ??? Ketones, ur 01/29/2022 3+ (A) ??? Bilirubin, ur 01/29/2022 Negative ??? Blood, ur 01/29/2022 Negative ? ? Urobilinogen, ur 01/29/2022 <2.0 ??? Nitrite, ur 01/29/2022 Negative ??? Leukocyte esterase, ur 01/29/2022 1+ (A) ??? UA reflex comment 01/29/2022 Reflex to microscopic UA will be performed. ??? Amphetamine, ur 01/29/2022 Not Detected ??? Barbiturates, ur 01/29/2022 Not Detected ??? Benzodiazepines, ur 01/29/2022 Not Detected ??? Cannabinoids, ur 01/29/2022 Not Detected ??? Cocaine, ur 01/29/2022 Not Detected ??? Fentanyl, Ur 01/29/2022 Not Detected ??? Methadone, ur 01/29/2022 Not Detected ??? Opiates, ur 01/29/2022 Not Detected ??? Oxycodone, ur 01/29/2022 Not Detected ??? Phencyclidine, ur 01/29/2022 Not Detected ??? Urine Creatinine 01/29/2022 61 ??? WBC, ur 01/29/2022 0-5 ??? RBC, ur 01/29/2022 0-2 ??? Epithelial cells, squamo* 01/29/2022 1-5 ??? Mucous, ur 01/29/2022 Present (A) ? ? Culture Reflex Comment 01/29/2022 Reflex conditions for urine culture (WBC >10) not met. ??? Glucose, POC 01/29/2022 261 (A) ??? Sodium 01/30/2022 137 ??? Phosphorus, pl 01/30/2022 2.6 ??? Potassium, pl 01/30/2022 3.5 ??? Magnesium 01/30/2022 1.8 ??? Lipase 01/29/2022 12 ??? Hgb A1C 01/29/2022 6.6 (A) ??? Estimated Average Glucose 01/29/2022 143 ??? TSH 01/29/2022 1.69 ??? Glucose, POC 01/29/2022 172 (A) ??? Glucose, POC 01/30/2022 81 ??? Glucose, POC 01/30/2022 119 (A) ??? Glucose, POC 01/30/2022 158 (A) No results displayed because visit has over 200 results. Physical Exam Constitutional: General: She is not in acute distress. HENT: Head: Normocephalic and atraumatic. Right Ear: External ear normal. Left Ear: External ear normal. Mouth/Throat: Pharynx: No oropharyngeal exudate (TMs normal, nose and throat clear). Eyes: Pupils: Pupils are equal, round, and reactive to light. Neck: Thyroid: No thyromegaly. Comments: No carotid bruits Cardiovascular: Rate and Rhythm: Normal rate and regular rhythm. Heart sounds: Normal heart sounds. No murmur (no edema) heard. No friction rub. No gallop. Pulmonary: Effort: Pulmonary effort is normal. Breath sounds: Normal breath sounds. No wheezing or rales. Chest: Chest wall: No tenderness. Abdominal: General: Bowel sounds are normal. Palpations: Abdomen is soft. There is no mass. Tenderness: There is no abdominal tenderness. There is no guarding. Comments: Tympanic, soft, NT Musculoskeletal: General: No deformity. Normal range of motion. Cervical back: Neck supple. Lymphadenopathy: Cervical: No cervical adenopathy (no bruits). Skin: General: Skin is warm. Findings: No rash. Neurological: Mental Status: She is alert and oriented to person, place, and time. Cranial Nerves: No cranial nerve deficit. Deep Tendon Reflexes: Reflexes normal. Psychiatric: Judgment: Judgment normal. Assessment/Plan Diagnoses and all orders for this visit: Encounter for wellness examination (Primary) Assessment & Plan: Ordered CBC, cmp, lipid, hgb a1c, HIV, hep c, TSH, and free t4 albumin cr urine Pap smear: referral to ob given F/u in 1 year for annual BMI 27.0-27.9,adult Type 1 diabetes mellitus with hyperglycemia (HCC) [...] Plan Note - Teresita Marquez MD - 02/02/2022 9:43 AM CDT Associated Problem(s): Type 1 diabetes mellitus [...] Plan Note - Teresita Marquez MD - 02/02/2022 9:42 AM CDT Associated Problem(s): Encounter for wellness examination Ordered CBC, cmp, lipid, hgb a1c, HIV, hep c, TSH, and free t4 albumin cr urine Pap smear: referral to ob given F/u in 1 year for annual documented in this encounter Plan of Treatment Not on file documented as of this encounter Visit Diagnoses Diagnosis Encounter for wellness examination- Primary BMI 27.0-27.9,adult Type 1 diabetes mellitus with hyperglycemia (HCC) documented in this encounter Care Teams Thermal Cutting Tracer Machine Operator Relationship Specialty Start Date End Date Teresita Marquez MD [address] [place] [address] [address] [place] [address] PCP - General Family Medicine 02/02/22 Warren Phillips MD Consulting Physician Gastroenterology 02/16/19 Miscellaneous, Not In File 07/23/21 Nicole Lopez DO [address] [place] [address] [address] [place] [address] Resident Family Medicine 11/22/21 Naomi Sanches MD [address] [place] [address] [address] [place] [address] Referring Physician General Surgery 11/22/21 documented as of this encounter
--- OUTSIDE RECORDS SUMMARY | 2024-05-10 18:36 | XMS_ITS | Encounter Summary ---
Author Organization [facility] Healthcare Address [address] [place] [address] Care Team Providers Care Cesspool Cleaner Name Role Phone Warren Phillips MD Unavailable [phone] Miscellaneous, Not In File Unavailable Unava ilable Nicole Lopez DO Unavailable Naomi Sanches MD Unavailable Teresita Marquez MD Primary Care Provide r Reason for Visit * Reason Comments Vomiting Encounter Details Date Type Department Care Team (Late st Contact Info) Description 03/10/2022 12:33 AM MEASUREMENT OPERATOR - 03/10/2022 10:31 AM MEASUREMENT OPERATOR Emergency [facility] Emergency Department [address] [facility] [place] [address] Miryam Medley MD [address] [place] [address] [place] [address] Dre Mancuso MD [address] [facility] [address] [place] [address] [place] [id number] Vomiting, unspecified vomiting type, unspecified whether nausea present (Primary Dx) Discharge Disposition: Discharge to home or self care Social History Tobacco Use Types Packs/Day Years [...] often do you attend chur ch or anglican services? Never 01/20/2022 Do you belong to [...] on file Legal Sex Female 3:13 AM MEASUREMENT OPERATOR Gender Identity Not on file Sexual Orientation Not on file documented as of this encounter Last Filed Vital Signs Vital Sign Reading Time Taken Comments Blood Pressure 118/81 03/10/2022 10:00 AM MEASUREMENT OPERATOR Pulse 104 03/10/2022 10:00 AM MEASUREMENT OPERATOR Temperature 36.9 ??C (98.5 ??F) 03/09/2022 7:31 PM CS T Respiratory Rate 17 03/10/2022 7:00 AM MEASUREMENT OPERATOR Oxygen Saturation 96% 03/10/2022 10:00 AM MEASUREMENT OPERATOR Inhaled Oxygen Concentration - - Weight 63.5 kg (140 lb) 03/09/2022 7:31 PM MEASUREMENT OPERATOR Height - - Body Mass Index 25.61 02/02/2022 8:10 AM CDT documented in this encounter Discharge Instructions * Discharge Instructions* Dre Mancuso MD - 03/10/2022 10:15 AM MEASUREMENT OPERATOR Continue home medications, follow with your primary doctor. UREMENT OPERATOR * Attachments The following attachments cannot be sent through Care Everywhere. * Acute Nausea and Vomiting (Wet Inspector Optical Glass) (Ecuadorean) documented in this encounter Medications at Time of Discharge insulin lispro (HumaLOG) 100 unit/mL injection Inject under the skin 3 (three) times a day before meals Uses per sliding scale 1 unit per every 7-8 grams of carb max of 50 units per day insulin glargine 100 unit/mL vial for injection Inject 25 Units under the skin nightly 07/15/2022 documented as of this encounter Discharge Disposition Disposition Code Departure Means Destination Discharge to home or self care documented in this encounter ED Notes * Miryam Medley MD - 03/10/2022 12:55 AM CSTAssociated Order(s): Critical Care Triage Chief Complaint: Chief Complaint Patient presents with ??? Vomiting Portions of the record may have been created with voice recognition software. Occasional wrong-word or '[id number]' substitutions may have occurred due to the inherent limitations of voice recognition software. Read the chart carefully and recognize, using context, where substitutions have occurred. H&P: Karina Fuchs is a 26 y.o. female with h/o diabetes, DKA, diabetic gastroparesis, cyclical vomiting syndrome, presents for nausea, vomiting. It started on Wednesday, 3 days ago. It started to improveand she thought that she would be able to manage it at home, but then recurred. She denies any associated symptoms. No chest pain. No shortness of breath. No cough. No fever. No abdominal pain. No diarrhea. No dysuria frequency urgency or vaginal complaints. Denies recent illness. Reports feeling as though she is in DKA. ROS: At least 10 systems reviewed and otherwise negative except as in the HPI. Past Medical History: Diagnosis Date ??? Cannabinoid hyperemesis syndrome ??? Dehydration 01/02/2018 ??? Depression ??? Diabetes mellitus ([facility]) T1DM ??? Diabetic ketoacidosis ([facility]) ([facility]) ??? Miscarriage ??? Uncontrolled type 1 diabetes mellitus with hyperglycemia (CMS/HCC) ([facility]) 01/02/2018 Past Surgical History: Procedure Laterality Date ??? SECTION, CLASSIC 2016 ??? DILATION AND CURETTAGE OF UTERUS ??? TONSILLECTOMY Bilateral 2002 HOME MEDICATIONS : insulin glargine 100 unit/mL vial for injection insulin lispro (HumaLOG) 100 unit/mL injection No Known Allergies Nursing Notes Reviewed. Physical Exam: ED Triage Vitals [03/09/22 1931] Temp Pulse Resp BP SpO2 36.9 ??C (98.5 ??F) (!) 150 18 136/93 100 % Temp src Heart Rate Source Patient Position BP Location FiO2 (%) -- -- -- -- -- Height Height Method Weight Weight Method -- -- 63.5 kg (140 lb) -- GENERAL APPEARANCE: Awake and alert. Appears uncomfortable. On re-evaluation: Sleeping comfortably. HEAD: Atraumatic. EYES: Sclera anicteric. EOMI. ENT: Tolerates saliva. Dry mucous membranes NECK: Supple. Trachea midline. HEART: RRR. Radial pulses 2+. LUNGS: Respirations unlabored. CTAB. ABDOMEN: Soft. Non-tender. No guarding or rebound. EXTREMITIES: No acute deformities. SKIN: Warm and dry. NEUROLOGICAL: No gross facial drooping. Moves all 4 extremities spontaneously. Normal speech and mental status. No ataxia noted. PSYCHIATRIC: Normal mood. I have reviewed and interpreted all of the currently available lab results from this visit (if applicable): Labs Reviewed COMPREHENSIVE METABOLIC PANEL - Abnormal Result Value Sodium 134 (*) Potassium, pl 4.5 Chloride 98 CO2 16 (*) Anion gap 20 (*) BUN 23 Creatinine 0.41 (*) Glucose 198 Calcium 9.6 Bilirubin, total 0.9 Protein, pl 7.5 Albumin 4.5 Alk phos 93 ALT 10 AST 15 BLOOD GAS, VENOUS - Abnormal pH, Venous 7.40 PCO2, Venous 28 (*) PO2, Venous 206 HCO3 Venous, Calculated 17 (*) BE, venous -6 CBC WITH AUTO DIFFERENTIAL - Abnormal WBC 15.5 (*) Hgb 14.3 Hct 41.7 Plt 195 MPV 10.0 RBC 4.94 MCV 84.4 MCH 28.9 MCHC 34.3 RDW CV 13.5 RDW SD 41.6 NRBC abs 0.00 DIFFERENTIAL AUTO - Abnormal Neutrophil abs 13.2 (*) Imm gran abs 0.1 Lymphocyte abs 1.3 Monocyte abs 0.8 Eosinophil abs 0.0 Basophil abs 0.0 Neutrophil pct 85.3 Imm gran pct 0.5 Lymphocyte pct 8.5 Monocyte pct 5.3 Eosinophil pct 0.1 Basophil pct 0.3 POCT GLUCOSE DEVICE - Abnormal Glucose, POC 182 (*) POCT GLUCOSE DEVICE - Abnormal Glucose, POC 206 (*) POCT GLUCOSE DEVICE - Abnormal Glucose, POC 205 (*) URINALYSIS AND REFLEX TO MICROSCOPIC AND CULTURE EGFR eGFR 140 LACTATE Lactate 1.4 HCG, BLOOD, QUANTITATIVE hCG, quant <5.0 BETA-HYDROXYBUTYRATE Radiographs (if obtained): Report Reviewed: No orders to display EKG (if obtained): (All EKGs are interpreted by myself in the absence of a pocket grinder operator) Sinus tachycardia with a rate of 114, normal intervals, normal axis, normal ST segments and T-waves. Inverted P-waves in V1 V2 that looks new from previous. Previously had some ST depressions, likelyrate related. Not so obvious today. Impression: Sinus tachycardia. No STEMI. Critical Care Performed by: Miryam Medley MD Authorized by: Dre Mancuso MD Critical care provider statement: As reflected in the history, physical exam, orders, notes, and/or MDM, I was personally present while the patient was critically ill and provided critical care services for 38 minutes, excluding timeinvolved in separately billable procedures. Critical care was necessary to treat or prevent imminent or life- threatening deterioration of the following condition(s): hyperemesis acid-base disturbance and hypo/hyper glycemic control ED course/MDM: Vitals: 03/10/22 0545 03/10/22 0550 03/10/22 0555 03/10/22 0600 BP: 124/89 Pulse: 109 102 102 93 Resp: Temp: SpO2: 97% 97% 97% 97% Weight: ED Course as of 03/10/22 1015 Time: 03/10 3 Value: Anion gap(!): 20 Comment: (Reviewed) By: Miryam Medley MD Time: 03/10 3 Value: CO2(!): 16 Comment: (Reviewed) By: Miryam Medley MD Time: 03/10 314 Value: pH, Venous: 7.40 Comment: (Reviewed) By: Miryam Medley MD Time: 03/107 Comment: Patient declined Reglan. Reports she feels better. Is drinking water. Tolerating p.o.. Notacidotic with normal pH on VBG - so doubt DKA. Possibly related to history of gastroparesis or cyclical vomiting syndrome. By: Miryam Medley MD Time: 03/10 0517 Value: WBC(!): 15.5 Comment: Nonspecific and nondiagnostic. Likely demargination in the setting of vomiting. By: Miryam Medley MD Time: 03/10 612 Comment: Patient signed out to Dr. Mancuso. She is tolerating p.o. and drinking fluids. Pending UAat this time. By: Miryam Medley MD Time: 03/10 101 Comment: Patient states she is feeling much better she prefers to go home. Informed her about her lab work. Recommended to continue her home medications, follow with primary doctor By: Dre Mancuso MD Clinical Impression: 1. Vomiting, unspecified vomiting type, unspecified whether nausea present Disposition: Pending further ED evaluation (Please note that portions of this note may have been completed with a voice recognition program. Automobiles Salesperson errors occur. Please contact me for any clarification.) Miryam Medley MD 03/10/22613 UREMENT OPERATOR * Neeta Davison RN - 03/09/2022 7:28 PM CST Patient arrives for evaluation of nausea and vomiting since Wednesday. Patient states that she thinks she's in dka. UREMENT OPERATOR documented in this encounter Miscellaneous Notes * ED Re-evaluation Note - Dre Mancuso MD - 03/10/2022 10:16 AM MEASUREMENT OPERATOR ED Re-evaluation I assumed care of this patient at shift change with pending lab and disposition. I have re-examinedthe patient she is comfortably lying on the bed in no discomfort. She states that she is able to tolerate fluids well and would like to go home. Dre Mancuso MD 03/10/22 1016 UREMENT OPERATOR documented in this encounter Plan of Treatment Not on file documented as of this encounter Procedures Procedure Name Priority Date/Time Associated Diagnosis Comments URINALYSIS AND REFLEX TO MICROSCOPIC AND CULTURE STAT 03/10/2022 9:10 AM MEASUREMENT OPERATOR URINALYSIS, MICROSCOPIC ONLY STAT 03/10/2022 9:10 AM MEASUREMENT OPERATOR POCT GLUCOSE DEVICE Routine 03/10/2022 7 :10 AM MEASUREMENT OPERATOR POCT GLUCOSE DEVICE Routine 03/10/2022 3 :40 AM MEASUREMENT OPERATOR LACTATE STAT 03/10/2022 2:01 AM MEASUREMENT OPERATOR DIFFERENTIAL AUTO STAT 03/10/2022 2:0 1 AM MEASUREMENT OPERATOR BETA-HYDROXYBUTYRATE Routine 03/10/2022 2:01 AM MEASUREMENT OPERATOR CBC WITH AUTO DIFFERENTIAL STAT 03/10/2022 2:01 AM MEASUREMENT OPERATOR HCG, BLOOD, QUANTITATIVE STAT 03/10/2022 2:01 AM MEASUREMENT OPERATOR BLOOD GAS, VENOUS STAT 03/10/2022 2:0 1 AM MEASUREMENT OPERATOR POCT GLUCOSE DEVICE Routine 03/10/2022 1 :22 AM MEASUREMENT OPERATOR ECG 12-LEAD Routine 03/10/2022 1:12 AM MEASUREMENT OPERATOR [place] CRITICAL CARE ILL/INJURED PATIENT INIT 30-74 MIN Routine 03/10/2022 12:55 AM MEASUREMENT OPERATOR EGFR STAT 03/09/2022 10:25 PM MEASUREMENT OPERATOR COMPREHENSIVE METABOLIC PANEL STAT 03/09/2022 10:25 PM MEASUREMENT OPERATOR POCT GLUCOSE DEVICE Routine 03/09/2022 7 :29 PM MEASUREMENT OPERATOR documented in this encounter Results * (ABNORMAL) Urinalysis, microscopic only (03/10/2022 9:10 AM MEASUREMENT OPERATOR) WBC, ur 6-10(A) 0 - 5 /HPF [facility] ([place]) RBC, ur 0-2 0 - 2 /HPF [facility] ([place]) Epithelial cells, squamous, ur 1-5 0 - 5 /HPF [facility] ([place]) Bacteria, ur Trace(A) [facility] ([place] Mucous, ur Present(A) [facility] A ([place]) Culture Reflex Comment Reflex conditions for urine culture (WBC >10) not met. [facility] ([place]) Urine 03/10/2022 9:10 AM MEASUREMENT OPERATOR 03/10/2022 9:15 AM MEASUREMENT OPERATOR us Miryam Medley MD LAB URINE ORDERABLES Fin al Result [facility]OMY [facility] ([place]) 1 [facility] Department [place] [address] * (ABNORMAL) Urinalysis reflex to microscopic and culture Urine (03/10/2022 9:10 AM MEASUREMENT OPERATOR) Color, ur Yellow Yellow [facility] ([place]) Clarity, ur Clear Clear [facility] ([place]) Specific gravity, ur 1.035(H) 1.003 - 1.030 [facility] ([place]) pH, urine 5.5 [facility] ([place]) Protein, ur ql 1+(A) Negative [facility] ([place]) Glucose, ur ql 4+(A) Negative [facility] ([place]) Ketones, ur 4+(A) Negative [facility] ([place]) Bilirubin, ur Negative Negative [facility] ([place]) Blood, ur Negative Negative [facility] ([place]) Urobilinogen, ur <2.0 <2.0 mg/dL [facility] ([place]) Nitrite, ur Negative Negative [facility] ([place]) Leukocyte esterase, ur Negative Negative [facility] ([place]) UA reflex comment Reflex to microscopic UA will be performed. [facility] ([place]) Urine 03/10/2022 9:10 AM MEASUREMENT OPERATOR 03/10/2022 9:15 AM MEASUREMENT OPERATOR Narrative [facility] ([place]) - 03/10/2022 9:31 AM MEASUREMENT OPERATOR ?? Urine pH is affected by diet, medications, systemic acid-base disturbances, and renal tubular function. ??pH may affect urinary stone formation. ??For example, urine pH below 6.0 may help reduce the tendency for calcium phosphate stones and pH greater than 6.0 may reduce the tendency for uric acid stone formation. Source: [employer]. Last revised 05-13-2017 Urine pH is affected by diet, medications, systemic acid-base disturbances, and renal tubular function. ??pH may affect urinary stone formation. ??For example, urine pH below 6.0 may help reduce the tendency for calcium phosphate stones and pH greater than 6.0 may reduce the tendency for uric acid stone formation. Source: [employer]. Last revised 05-13-2017 us Miryam Medley MD LAB MICROBIOLOGY - GENER AL ORDERABLES Final Result [facility] ([place]) 1 [facility] Department [place] [address] * (ABNORMAL) POCT glucose (03/10/2022 7:10 AM MEASUREMENT OPERATOR) Glucose, POC 200(H) 71 - 98 mg/dL [facility] ([place]) Comment:Glu2: RN/MD Notified Blood 03/10/2022 7:10 AM MEASUREMENT OPERATOR 03/10/2022 7:10 AM MEASUREMENT OPERATOR Dre Mancuso MD LAB POCT ORDERABLES - DEVICE F inal Result [facility] ([place]) 1 [facility] [place] [address] * (ABNORMAL) POCT glucose (03/10/2022 3:40 AM MEASUREMENT OPERATOR) Glucose, POC 205(H) 71 - 98 mg/dL [facility] ([place]) Blood 03/10/2022 3:40 AM MEASUREMENT OPERATOR 03/10/2022 3:40 AM MEASUREMENT OPERATOR us Miryam Medley MD LAB POCT ORDERABLES - DE VICE Final Result Performing Organization Address City/[facility] Co de Phone Number [facility] ([place]) 1 [facility] [place] [address] * (ABNORMAL) Differential, auto (03/10/2022 2:01 AM MEASUREMENT OPERATOR) Neutrophil abs 13.2(H) 1.7 - 6.5 K/cumm [facility] ([place]) Imm gran abs 0.1 0.0 - 0.1 K/cumm [facility] ([place]) Lymphocyte abs 1.3 0.8 - 3.3 K/cumm [facility] ([place]) Monocyte abs 0.8 0.2 - 0.8 K/cumm [facility] ([place]) Eosinophil abs 0.0 0.0 - 0.5 K/cumm [facility] ([place]) Basophil abs 0.0 0.0 - 0.1 K/cumm [facility] ([place]) Neutrophil pct 85.3 % [facility] ([place]) Comment: Interpretive Data Percent cell count reference ranges are not reported, since discordance with absolute values may lead to misinterpretation of CBC data. Current Interpretive Data was last revised on 2017. Imm gran pct 0.5 % [facility] ([place]) Comment: Interpretive Data Percent cell count reference ranges are not reported, since discordance with absolute values may lead to misinterpretation of CBC data. Current Interpretive Data was last revised on 2017. Lymphocyte pct 8.5 % [facility] ([place]) Comment: Interpretive Data Percent cell count reference ranges are not reported, since discordance with absolute values may lead to misinterpretation of CBC data. Current Interpretive Data was last revised on 2017. Monocyte pct 5.3 % [facility] ([place]) Comment: Interpretive Data Percent cell count reference ranges are not reported, since discordance with absolute values may lead to misinterpretation of CBC data. Current Interpretive Data was last revised on 2017. Eosinophil pct 0.1 % [facility] ([place]) Comment: Interpretive Data Percent cell count reference ranges are not reported, since discordance with absolute values may lead to misinterpretation of CBC data. Current Interpretive Data was last revised on 2017. Basophil pct 0.3 % [facility] ([place]) Comment: Interpretive Data Percent cell count reference ranges are not reported, since discordance with absolute values may lead to misinterpretation of CBC data. Current Interpretive Data was last revised on 2017. Blood 03/10/2022 2:01 AM MEASUREMENT OPERATOR 03/10/2022 2:06 AM MEASUREMENT OPERATOR us Miryam Medley MD LAB BLOOD ORDERABLES Fin al Result [facility] ([place]) 1 [facility] Department [place] [address] * (ABNORMAL) Beta-hydroxybutyrate (03/10/2022 2:01 AM MEASUREMENT OPERATOR) Beta-Hydroxybu tyrate 4.7(H) <=0.5 mmol/L [facility] ([place]) Comment: Hemolysis present. ??Results may be affected. Testing performed by: [facility], [address] [place] [address]., [id number] Blood 03/10/2022 2:01 AM MEASUREMENT OPERATOR 03/10/2022 9:02 AM MEASUREMENT OPERATOR Miryam Medley MD LAB BLOOD ORDERABLES Fin al Result Performing Organization Address [facility] Co de Phone Number TOMY [facility] ([place]) 1 [facility] [employer] [place] [address] * hCG, blood, quantitative (03/10/2022 2:01 AM MEASUREMENT OPERATOR) hCG, quant <5.0 0.0 - 5.0 IUnits/L [facility] ([place]) Comment: Interpretive Data Non- Female premenopausal: < or = 5.0 IUnits/L Men: < 5.0 IUnits/L Weeks of Gestation ? Reference Interval ?? 3 to 6 ? 5.8-31,795 IUnits/L ?? 7 to 10 ? 3,697-186,977 IUnits/L ??12 to 15 ?27,832- 70,791 IUnits/L ??16 to 18 ? 9,040- 58,179 IUnits/L The Michelle hCG Beta Quant assay procedure was used. Results from different manufacturers or methods may not be comparable. Serial testing should be performed using the same method. Current Interpretive Data was last revised on 2021. Blood 03/10/2022 2:01 AM MEASUREMENT OPERATOR 03/10/2022 2:06 AM MEASUREMENT OPERATOR Miryam Medley MD LAB BLOOD ORDERABLES Ruddy leila Result - Final Performing Organization Address City/[facility]/ZIP Co de Phone Number [facility]OM[facility] ([place]) 1 [facility] [employer] [place] [address] * Lactate (03/10/2022 2:01 AM MEASUREMENT OPERATOR) Lactate 1.4 0.7 - 2.0 mmol/L [facility] ([place]) Blood 03/10/2022 2:01 AM MEASUREMENT OPERATOR 03/10/2022 2:06 AM MEASUREMENT OPERATOR Miryam Medley MD LAB BLOOD ORDERABLES Fin al Result Performing Organization Address City/[facility] Co de Phone Number [facility] ([place]) 1 [facility] Department [place] [address] * (ABNORMAL) CBC with auto differential (03/10/2022 2:01 AM MEASUREMENT OPERATOR) Pathologist [facility] WBC 15.5(H) 3.8 - 9.9 K/cumm [facility] ([place]) Hgb 14.3 11.9 - 15.5 g/dL [facility] ([place]) Hct 41.7 35.6 - 45.5 % [facility] ([place]) Plt 195 150 - 400 K/cumm [facility] ([place]) Comment:No clot detected in sample. MPV 10.0 9.1 - 12.3 fL [facility] ([place]) RBC 4.94 3.90 - 5.20 M/cumm [facility] ([place]) MCV 84.4 81.3 - 96.4 fL [facility] ([place]) MCH 28.9 27.1 - 33.3 pg [facility] ([place]) MCHC 34.3 32.3 - 35.7 g/dL [facility] ([place]) RDW CV 13.5 11.1 - 14.9 % [facility] ([place]) RDW SD 41.6 35.7 - 48.1 fL [facility] ([place]) NRBC abs 0.00 0.00 - 0.01 K/cumm [facility] ([place]) Blood 03/10/2022 2:01 AM MEASUREMENT OPERATOR 03/10/2022 2:06 AM MEASUREMENT OPERATOR us Miryam Medley MD LAB BLOOD ORDERABLES Fin al Result Performing Organization Address City/State/[facility] Co de Phone Number TOMY [facility] ([place]) 1 [facility] [place] [address] * (ABNORMAL) Blood gas, venous (03/10/2022 2:01 AM MEASUREMENT OPERATOR) pH, Venous 7.40 7.32 - 7.43 [facility] ([place] PCO2, Venous 28(L) 40 - 50 mmHg [facility] ([place]) PO2, Venous 206 mmHg [facility] A ([place]) Comment: Interpretive Data No Reference Range Established Current Interpretive Data was last revised on 2017. HCO3 Venous, Calculated 17(L) 20 - 30 mmol/L [facility] ([place]) BE, venous -6 mmol/L [facility] ([place]) Comment: Interpretive Data No Reference Range Established Current Interpretive Data was last revised on 2017. Blood 03/10/2022 2:01 AM MEASUREMENT OPERATOR 03/10/2022 2:06 AM MEASUREMENT OPERATOR us Miryam Medley MD LAB BLOOD ORDERABLES Fin al Result [facility] ([place]) 1 [facility] [place] [address] * (ABNORMAL) POCT glucose (03/10/2022 1:22 AM MEASUREMENT OPERATOR) Glucose, POC 206(H) 71 - 98 mg/dL [facility] ([place] Blood 03/10/2022 1:22 AM MEASUREMENT OPERATOR 03/10/2022 1:22 AM MEASUREMENT OPERATOR us Miryam Medley MD LAB POCT ORDERABLES - DE VICE Final Result [facility] ([place]) 1 [place] [address] * ECG 12 lead (03/10/2022 1:12 AM MEASUREMENT OPERATOR) 03/10/2022 1:12 AM MEASUREMENT OPERATOR Narrative [facility] - 03/10/2022 8:57 AM MEASUREMENT OPERATOR Vent Rate: 114 bpm RR Interval: 524 msec [place] Interval: 125 msec QRS Duration: 73 msec QT Interval: 309 msec QTC Interval: 377 msec P-R-T [place]: 65 - 83 - 46 degrees SINUS TACHYCARDIA RIGHT ATRIAL ENLARGEMENT ??[0.3mV P WAVE] LEFT ATRIAL ENLARGEMENT ??[-0.15mV P WAVE IN V1/V2] ABNORMAL ECG No change from prior EKG Electronically Signed By: Dariel Hsu MD us Miryam Medley MD ECG ORDERABLES Final Re sult [facility] * [place] CRITICAL CARE ILL/INJURED PATIENT INIT 30-74 MIN (03/10/2022 12:55 AM MEASUREMENT OPERATOR) Narrative Miryam Medley MD - 03/10/2022 12:55 AM MEASUREMENT OPERATOR Miryam Medley MD ? 03/10/2022 ??6:14 AM Critical Care Performed by: Miryam Medley MD Authorized by: Dre Mancuso MD Critical care provider statement: As reflected in the history, physical exam, orders, notes, and/or MDM, I was personally present while the patient was critically ill and provided critical care services for 38 minutes, excluding time involved in separately billable procedures. ??Critical care was necessary to treat or prevent imminent or life-threatening deterioration of the following condition(s): ?? hyperemesis ?? acid-base disturbance and hypo/hyper glycemic control Dre Mancuso MD IN CLINIC/BEDSIDE ORDERABLES F inal Result * eGFR (03/09/2022 10:25 PM MEASUREMENT OPERATOR) eGFR 140 mL/min/1. 73 m2 [facility] ([place]) Comment: [...] interpretive data was last reviewed 2021. Blood 03/09/2022 10:2 5 PM MEASUREMENT OPERATOR 03/09/2022 10:39 PM MEASUREMENT OPERATOR us Miryam Medley MD LAB BLOOD ORDERABLES Fin al Result [facility] ([place]) 1 [facility] Department [place] [address] * (ABNORMAL) Comprehensive metabolic panel (03/09/2022 10:25 PM MEASUREMENT OPERATOR) Sodium 134(L) 135 - 145 mmol/L [facility] ([place] Potassium, pl 4.5 3.3 - 4.9 mmol/L [facility] ([place]) Chloride 98 97 - 110 mmol/L [facility] ([place]) CO2 16(L) 22 - 32 mmol/L [facility] ([place]) Anion gap 20(H) 2 - 15 mmol/L [facility] ([place]) BUN 23 8 - 25 mg/dL [facility] ([place]) Creatinine 0.41(L) 0.60 - 1.10 mg/dL [facility] ([place]) Glucose 198 70 - 199 mg/dL [facility] ([place]) Comment: Interpretive Data Fasting glucose >/= 126 mg/dl is diagnostic for diabetes. ?? Fasting is defined as no caloric intake for at least 8 hours. Fasting glucose between 100 mg/dl to 125 mg/dl is diagnostic of prediabetes. In a patient with classic symptoms of hyperglycemia or hyperglycemic crisis, a random glucose >/= 200 mg/dl is diagnostic for diabetes. In the absence of unequivocal hyperglycemia, results should be confirmed by repeat testing. The classification and Diagnosis of Diabetes Diabetes Care 2017;40 (Suppl. 1):S11. Current interpretive data was last revised 2017. Calcium 9.6 8.5 - 10.3 mg/dL [facility] Bilirubin, total 0.9 0.1 - 1.2 mg/dL [facility] Protein, pl 7.5 6.5 - 8.5 g/dL [facility] ([place]) Albumin 4.5 3.5 - 5.0 g/dL [facility] Alk phos 93 40 - 130 Units/L [facility] ALT 10 7 - 45 Units/L [facility] AST 15 10 - 45 Units/L [facility] ([place]) Comment:Slightly Hemolyzed S pecimen Blood 03/09/2022 10:2 5 PM MEASUREMENT OPERATOR 03/09/2022 10:39 PM MEASUREMENT OPERATOR us Miryam Medley MD LAB BLOOD ORDERABLES Fin al Result Performing Organization Address City/[facility]/ZIP Co de Phone Number [facility] ([place]) [address] [facility] [employer] [place] [address] * (ABNORMAL) POCT glucose (03/09/2022 7:29 PM MEASUREMENT OPERATOR) Glucose, POC 182(H) 71 - 98 mg/dL [facility] ([place]) Blood 03/09/2022 7:29 PM MEASUREMENT OPERATOR 03/09/2022 7:29 PM MEASUREMENT OPERATOR us Notinfile Unknown LAB POCT ORDERABLES - DEVICE F inal Result Performing Organization Address City/[facility] Co de Phone Number [facility] ([place]) [address] Department [place] [address] documented in this encounter Visit Diagnoses Diagnosis Vomiting, unspecified vomiting type, unspecified whether nausea present- Primary documented in this encounter Administered Medications Inactive Administered Medications - up to 3 most recent administrations Medication Order MAR Action Action Date Dose Rate Site dextrose (D10W) 10% bolus 250 mL 250 mL, intravenous, at 1,000 mL/hr, Administer over 15 Minutes, Every 15 min PRN, blood glucose less than 70 mg/dL and UNABLE to swallow/take PO glucose/juice., Starting on Wed03/10/22 at 0315, After treatment for hypoglycemia, recheck BG followed by treatment every 15 minutes until the BG is greater than 100 mg/dL. Then check BG 1 hour post treatment. If BG is less than 100 mg/dL, repeat Q15 minute BG checks and treatment. Call MD for each episode of hypoglycemia., Indications: hypoglycemic disorderIndications:hypo glycemic disorder dextrose gel in packet 15 g 15 g, oral, Every 15 min PRN, low blood sugar, blood glucose less than 70 mg/dL, Starting on Wed03/10/22 at 0315, If patient is alert and able to eat/drink, give 15 gm glucose or one juice (4 fluid ounces) NOT ORANGE JUICE. After treatment for hypoglycemia, recheck BG followed by treatment every 15 minutes until the BG is greater than 100 mg/dL. Then check BG 1 hour post-treatment. If BG is less than 100 mg/dL, repeat Q15 minute BG checks and treatment. Call MD for each episode of hypoglycemia., Indications: hypoglycemic disorderIndications:hypo glycemic disorder glucagon injection 1 mg 1 mg, intramuscular, Every 30 min PRN, low blood sugar, blood glucose less than 70 mg/dL AND no IV access AND unable to take PO glucose/juice., Starting on Wed03/10/22 at 0315, After Glucagon is administered, position patient on side if possible to avoid aspiration. Obtain IV access. Follow glucagon treatment with glucose treatment or IV dextrose. After treatment for hypoglycemia, recheck BG followed by treatment every 15 minutes until the BG is greater than 100 mg/dL. Then check BG 1 hour post treatment. If BG is less than 100 mg/dL, repeat Q15 minute BG checks and treatment. Call MD for each episode of hypoglycemia. Reconstitute 1 mg vial with 1 mL SWFI. Use immediately following reconstitution. insulin lispro (HumaLOG, ADMELOG) 100 unit/mL pen injection 0-5 Units 0-5 Units, subcutaneous, Every 4 hours scheduled, First dose on Wed03/10/22 at 0400, Blood glucose mg/dL: 149 or less: No insulin 150-199: add 1 unit 200-249: add 2 units 250-299: add 3 units 300-349: add 4 units and notify physician for adjustment of insulin orders. 350-399: add 5 units and notify physician for adjustment of insulin orders. Over 400: Notify physician for adjustment of insulin orders. Do NOT hold for NPO Status Attach new pen needle required for each administration. 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 Scheduled Medication Order 03/08/2022 03/09/2022 03/10/2022 insulin lispro (HumaLOG, ADMELOG) 100 unit/mL pen injection 0-5 Units 0-5 Units, subcutaneous, Every 4 hours scheduled, First dose on Wed03/10/22 at 0400, Blood glucose mg/dL: 149 or less: No insulin 150-199: add 1 unit 200-249: add 2 units 250-299: add 3 units 300-349: add 4 units and notify physician for adjustment of insulin orders. 350-399: add 5 units and notify physician for adjustment of insulin orders. Over 400: Notify physician for adjustment of insulin orders. Do NOT hold for NPO Status Attach new pen needle required for each administration. Each new pen needle must be primed with 2 units prior to administration., Indications: Diabetes Mellitus 0350 (Given - Provid er: aLkeshia Moreno RN)0710 (Given - Provider: Ml Aguilar RN) metoclopramide (REGLAN) tablet 10 mg 10 mg, oral, Once, On Wed03/10/22 at 0316, For 1 dose 0341 (Not Given - Pr ovider: Lakeshia Moreno RN - Reason: Patient/family refused) ondansetron (ZOFRAN) injection 4 mg 4 mg, intravenous, Administer over 2 Minutes, Once, On Wed03/10/22 at 0004, For 1 dose, Indications: Nausea, Vomiting 0145 (Not Given - Pr ovider: Jenifer Friend RN - Reason: Order Discontinued) ondansetron (ZOFRAN) injection 4 mg (COMPLETED) 4 mg, intravenous, Administer over 2 Minutes, Once, On Wed03/10/22 at 0147, For 1 dose 0151 (Given - Provid er: Lakeshia Moreno RN - Comment: given IM per ERP) ondansetron ODT (ZOFRAN-ODT) disintegrating tablet 4 mg 4 mg, oral, Once, On Wed03/10/22 at 0147, For 1 dose 0147 (Not Given - Pr ovider: Jenifer Friend RN - Reason: Order Discontinued) sodium chloride 0.9% bolus 1,000 mL 1,000 mL, intravenous, at 1,000 mL/hr, Administer over 1 Hours, Once, On Wed03/10/22 at 0004, For 1 dose 0152 (Not Given - Pr ovider: Lakeshia Moreno RN - Reason: Other - Comment: no iv access) PRN Medication Order 03/08/2022 03/09/2022 03/10/2022 dextrose (D10W) 10% bolus 250 mL(Linked Group 1) 250 mL, intravenous, at 1,000 mL/hr, Administer over 15 Minutes, Every 15 min PRN, blood glucose less than 70 mg/dL and UNABLE to swallow/take PO glucose/juice., Starting on Wed03/10/22 at 0315, After treatment for hypoglycemia, recheck BG followed by treatment every 15 minutes until the BG is greater than 100 mg/dL. Then check BG 1 hour post treatment. If BG is less than 100 mg/dL, repeat Q15 minute BG checks and treatment. Call MD for each episode of hypoglycemia., Indications: hypoglycemic disorder dextrose gel in packet 15 g(Linked Group 1) 15 g, oral, Every 15 min PRN, low blood sugar, blood glucose less than 70 mg/dL, Starting on Wed03/10/22 at 031, If patient is alert and able to eat/drink, give 15 gm glucose or one juice (4 fluid ounces) NOT ORANGE JUICE. After treatment for hypoglycemia, recheck BG followed by treatment every 15 minutes until the BG is greater than 100 mg/dL. Then check BG 1 hour post-treatment. If BG is less than 100 mg/dL, repeat Q15 minute BG checks and treatment. Call MD for each episode of hypoglycemia., Indications: hypoglycemic disorder glucagon injection 1 mg 1 mg, intramuscular, Every 30 min PRN, low blood sugar, blood glucose less than 70 mg/dL AND no IV access AND unable to take PO glucose/juice., Starting on Wed03/10/22 at 314, After Glucagon is administered, position patient on side if possible to avoid aspiration. Obtain IV access. Follow glucagon treatment with glucose treatment or IV dextrose. After treatment for hypoglycemia, recheck BG followed by treatment every 15 minutes until the BG is greater than 100 mg/dL. Then check BG 1 hour post treatment. If BG is less than 100 mg/dL, repeat Q15 minute BG checks and treatment. Call MD for each episode of hypoglycemia. Reconstitute 1 mg vial with 1 mL SWFI. Use immediately following reconstitution. Linked Groups Order Group 1: dextrose gel in packet 15 gJump to med 15 g, oral, Every 15 min PRN, low blood sugar, blood glucose less than 70 mg/dL, Starting on Wed03/10/22 at 031, If patient is alert and able to eat/drink, give 15 gm glucose or one juice (4 fluid ounces) NOT ORANGE JUICE. After treatment for hypoglycemia, recheck BG followed by treatment every 15 minutes until the BG is greater than 100 mg/dL. Then check BG 1 hour post-treatment. If BG is less than 100 mg/dL, repeat Q15 minute BG checks and treatment. Call MD for each episode of hypoglycemia., Indications: hypoglycemic disorder Or dextrose (D10W) 10% bolus 250 mLJump to med 250 mL, intravenous, at 1,000 mL/hr, Administer over 15 Minutes, Every 15 min PRN, blood glucose less than 70 mg/dL and UNABLE to swallow/take PO glucose/juice., Starting on Wed03/10/22 at 0315, After treatment for hypoglycemia, recheck BG followed by treatment every 15 minutes until the BG is greater than 100 mg/dL. Then check BG 1 hour post treatment. If BG is less than 100 mg/dL, repeat Q15 minute BG checks and treatment. Call MD for each episode of hypoglycemia., Indications: hypoglycemic disorder documented in this encounter Orders Medications Ordered That Evan ht Not Have Been Administered Count Last Ordered Date First Ordered Date dextrose (D10W) 10% bolus 250 mL 1 03/10/20 dextrose gel in packet 15 g 1 03/10/2022 glucagon injection 1 mg 1 03/10/2022 metoclopramide (REGLAN) tablet 10 mg 1 12/2021 ondansetron (ZOFRAN) injection 4 mg 1 03/10 ondansetron ODT (ZOFRAN-ODT) disintegrating tablet 4 mg 1 03/10/2022 sodium chloride 0.9% bolus 1,000 mL 1 03/10 Nursing Count Last Ordered Date First Orde red Date ENCOURAGE FLUIDS 2 03/10/2022 documented in this encounter Care Teams Cesspool Cleaner Relationship Specialty Start Date End Date Teresita Marquez MD [address] [facility] [place] [address] PCP - General Family Medicine 02/02/22 Warren Phillips MD Consulting Physician Gastroenterology 02/16/19 Miscellaneous, Not In File 07/23/21 Nicole Lopez DO [address] [facility] [place] [address] Resident Family Medicine 11/22/21 Naomi Sanches MD [address] [facility] [place] [address] Referring Physician General Surgery 11/22/21 documented as of this encounter
--- OUTSIDE RECORDS SUMMARY | 2024-05-10 18:36 | XMS_ITS | Encounter Summary ---
Author Organization [facility] Address [address] [place] [address] Care Team Providers Care Pattern Shop Supervisor Name Role Phone Warren Phillips MD Unavailable [phone] Miscellaneous, Not In File Unavailable Unava ilable Nicole Lopez DO Unavailable [phone] Naomi Sanches MD Unavailable Teresita Marquez MD Primary Care Provide r Encounter Details Date Type Department Care Team (Late st Contact Info) Description 12/09/2022 Orders Only [facility] Primary Care at [address] [place] [address] Teresita Marquez MD [address] [place] [address] [address] [place] [address] Preventative health care (Primary Dx) Social History Tobacco Use Types Packs/Day Years [...] any clubs o r organizations such as gnosticism groups, unions, fraternal or athletic groups, or [...] on file 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 Gender Identity Not on file Sexual Orientation Not on file documented as of this encounter Plan of Treatment Not on file documented as of this encounter Visit Diagnoses Diagnosis Preventative health care- Primary Routine general medical examination at a health care facility documented in this encounter Care Teams Pattern Shop Supervisor Relationship Specialty Start Date End Date Teresita Marquez MD [address] [place] [address] PCP - General Family Medicine 02/02/22 Warren Phillips MD Consulting Physician Gastroenterology 02/16/19 Miscellaneous, Not In File 07/23/21 Nicole Lopez DO [address] [place] [address] Resident Family Medicine 11/22/21 Naomi Sanches MD [address] [place] [address] [address] [place] [address] Referring Physician General Surgery 11/22/21 documented as of this encounter
--- OUTSIDE RECORDS SUMMARY | 2024-05-10 18:36 | XMS_ITS | Encounter Summary ---
Author Organization [facility] Healthcare Address [address] [place] [address] Care Team Providers Care Meat Boner Name Role Phone Warren Phillips MD Unavailable [phone] Miscellaneous, Not In File Unavailable Unava ilable Nicole Lopez DO Unavailable Naomi Sanches MD Unavailable Teresita Marquez MD Primary Care Provide r Reason for Visit * Reason Comments Vomiting Encounter Details Date Type Department Care Team (Late st Contact Info) Description 07/17/2022 1:24 PM CDT - 07/17/2022 7:53 PM CDT Emergency [facility] Emergency Department [address] [place] [id number] Nausea and vomiting, unspecified vomiting type (Primary Dx); before 22 weeks with retention of fetus; Urinary tract infection in female Discharge Disposition: Discharge to home or self [...] often do you attend chur ch or episcopal services? Never 01/20/2022 Do you belong to any clubs o r organizations such as taoist groups, unions, fraternal or athletic groups, or [...] on file Legal Sex Female 3:13 AM [employer]LECT[employer] INST[employer] Gender Identity Not on file Sexual [...] (180 lb) 07/17/2022 1:09 PM CDT Height - - Body Mass Index 32.92 07/15/2022 2:54 PM CDT documented in this encounter Discharge Instructions * Attachments The following attachments cannot be sent through Care Everywhere. * Vomiting (Adult) ([place]) * Miscarriage, Incomplete ([place]) * Bladder Infection, Female (Adult) ([place]) documented in this encounter Medications at Time of Discharge insulin lispro (HumaLOG) 100 unit/mL injection Inject under the skin 3 (three) times a day before meals Uses per sliding scale 1 unit per every 7-8 grams of carb max of 50 units per day metoclopramide (REGLAN) 10 mg tablet Take 1 tablet (10 mg total) by mouth every 6 (six) hours Take as directed for nausea. Collaborating physician Cody Case MD 30 tablet 07/17/2022 nitrofurantoin monohydrate (MACROBID) 100 mg capsule Take 1 capsule (100 mg total) by mouth 2 (two) times a day Antibiotic to treat urinary tract infection. Collaborating physician Cody Case MD 10 capsule 07/17/2022 documented as of this encounter Ordered Prescriptions Prescription Sig Dispense Quantity Refills Last Filled Start Date End Date nitrofurantoin monohydrate (MACROBID) 100 mg capsule Take 1 capsule (100 mg total) by mouth 2 (two) times a day Antibiotic to treat urinary tract infection. Collaborating physician Cody Case MD 10 capsule 07/17/2022 metoclopramide (REGLAN) 10 mg tablet Take 1 tablet (10 mg total) by mouth every 6 (six) hours Take as directed for nausea. Collaborating physician Cody Case MD 30 tablet 07/17/2022 documented in this encounter Discharge Disposition Disposition Code Departure Means Destination Comment s Discharge to home or self care documented in this encounter ED Notes * Kevin Bower PA - 07/17/2022 1:25 PM CDT HPI Chief Complaint Patient presents with Vomiting 27-year-old female G4,P1,AB3 with past medical history of type 1 diabetes with Dexcom, depression, and previous diabetic gastroparesis presents with chief complaint of nausea and vomiting. Onset thismorning. Patient states that she is and her last normal menstrual period was April 2022. Her significant other states that she recently had an obstetric ultrasound but I do not see any record of this in the medical record. He also states that patient has been very tired and sluggish. Patient states her OBGYN is Mireya Velazquez MD. Patient denies fever or chills. Denies upper or lower respiratory infection symptoms. Denies abdominal pain. Denies urinary symptoms. Patient History: Patient Active Problem List Diagnosis Date Noted before 22 weeks with retention of fetus 07/17/2022 Urinary tract infection in female 07/17/2022 Encounter for completion of form with patient 07/15/2022 Encounter for wellness examination 02/02/2022 Type 1 diabetes mellitus with hyperglycemia (HCC) Nausea and vomiting, unspecified vomiting type 01/18/2022 Hyponatremia 11/21/2021 Constipation 11/21/2021 Nausea and vomiting 11/20/2021 Acute renal failure (CMS/HCC) (HCC) Thrombocytopenia (HCC) 10/28/2021 Leukocytosis 04/29/2021 Hypophosphatemia Intractable vomiting with nausea Altered mental status 03/04/2021 Diabetic ketoacidosis with coma associated with type 1 diabetes mellitus (CMS/HCC) (HCC) 11/16/2020 Marijuana abuse 11/16/2020 Intractable vomiting 03/13/2020 T1DM in 03/06/2020 Noncompliance with medication regimen 04/26/2019 Tachycardia 03/24/2019 Diabetic gastroparesis (CMS/HCC) (HCC) 02/14/2019 Depression 02/11/2019 Hypokalemia 11/08/2018 Type 1 diabetes mellitus with ketoacidosis without coma (CMS/[facility]) ([facility]) Cannabinoid hyperemesis syndrome 01/02/2018 Dehydration 01/02/2018 Uncontrolled type 1 diabetes mellitus with hyperglycemia ([facility]) ([facility]) 01/02/2018 Past Medical History: Diagnosis Date Cannabinoid hyperemesis syndrome Dehydration 01/02/2018 Depression Diabetes mellitus ([facility]) T1DM Diabetic ketoacidosis ([facility]) ([facility]) Miscarriage Uncontrolled type 1 diabetes mellitus with hyperglycemia ([facility]) ([facility]) 01/02/2018 Past Surgical History: Procedure Laterality Date SECTION, CLASSIC 2017 DILATION AND CURETTAGE OF UTERUS TONSILLECTOMY Bilateral 2002 Family History Problem Relation Age of Onset Anemia Mother Autism Brother Social History Tobacco Use Smoking status: Never Smokeless tobacco: Never Substance and Sexual Activity Alcohol use: Not Currently Drug use: Yes Types: Marijuana Sexual activity: Yes Partners: Male Social History Social History Narrative Not on file Review of Systems Review of Systems All other systems reviewed negative. All available allergies, past medical history, past surgical history, social history, and medications reviewed from the medical record, nursing notes, and with patient Physical Exam ED Triage Vitals [07/17/22 1309] Temp Pulse Resp BP SpO2 36.7 ??C (98.1 ??F) 108 20 145/80 100 % Temp src Heart Rate Source Patient Position BP Location FiO2 (%) -- -- -- -- -- Height Height Method Weight Weight Method -- -- 81.6 kg (180 lb) -- Physical Exam Vitals and nursing note reviewed. Constitutional: Appearance: Normal appearance. HENT: Head: Normocephalic and atraumatic. Right Ear: Ear canal and external ear normal. Left Ear: Ear canal and external ear normal. Nose: Nose normal. Mouth/Throat: Mouth: Mucous membranes are dry. Pharynx: Oropharynx is clear. Eyes: General: No scleral icterus. Right eye: No discharge. Left eye: No discharge. Conjunctiva/sclera: Conjunctivae normal. Pupils: Pupils are equal, round, and reactive to light. Cardiovascular: Rate and Rhythm: Regular rhythm. Tachycardia present. Pulses: Normal pulses. Heart sounds: Normal heart sounds. Pulmonary: Effort: Pulmonary effort is normal. Breath sounds: Normal breath sounds. Abdominal: General: Bowel sounds are normal. Palpations: Abdomen is soft. Tenderness: There is no abdominal tenderness. There is no right CVA tenderness, left CVA tendernessor guarding. Musculoskeletal: Cervical back: Normal range of motion. Skin: General: Skin is warm and dry. Neurological: General: No focal deficit present. Mental Status: She is alert and oriented to person, place, and time. Psychiatric: Thought Content: Thought content normal. Judgment: Judgment normal. Comments: Flat affect Voice recognition software [employer] was used to dictate and transcribe this document. Wire Machine Operator variances may occur. Despite proofreading, typographical errors may occur. MDM Medical Decision Making Differential diagnosis: Nausea of /morning sickness, hyperemesis gravidarum, acute viral syndrome, food poisoning, diabetic gastroparesis, gastritis, gastroenteritis, hyperosmolar, DKA Emergency department plan: IV, labs, IV fluids, IV antiemetics, pelvic ultrasound. Amount and/or Complexity of Data Reviewed Labs: ordered. Decision-making details documented in ED Course. Radiology: ordered. Risk Prescription drug management. Risk Details: Discharge plan: Prescriptions for nitrofurantoin and metoclopramide sent to patient'spreferred pharmacy. Clear liquid diet. Advance diet slowly. Careful attention to blood sugar. Follow-up with PCP and OBGYN. Return if worse. ED Course as of 07/17/221926 Time: 07/17 1717 Value: HCG, quant(!): 54,341.0 Comment: Positive test. Ordered obstetric ultrasound. By: Kevin Bower PA Time: 07/17 1717 Value: WBC(!): 11.8 Comment: (Reviewed) By: Kevin Bower PA Time: 07/17 1717 Value: Neutrophil abs(!): 10.4 Comment: Mild elevation in WBC count with shift in neutrophils. By: Kevin Bower PA Time: 07/17 1717 Value: Sodium: 136 Comment: (Reviewed) By: Kevin Bower PA Time: 07/17 1717 Value: Potassium, pl: 3.6 Comment: (Reviewed) By: Kevin Bower PA Time: 07/17 1717 Value: Calcium: 9.8 Comment: Electrolytes within normal limits. By: Kevin Bower PA Time: 07/17 1717 Value: Anion gap: 15 Comment: Negative elevation in anion gap By: Kevin Bower PA Time: 07/17 1718 Value: Alk phos: 71 Comment: (Reviewed) By: Kevin Bower PA Time: 07/17 1718 Value: ALT: 15 Comment: (Reviewed) By: Kevin Bower PA Time: 07/17 1718 Value: AST: 20 Comment: Negative elevation in LFTs By: Kevin Bower PA Time: 07/17 1718 Value: Bilirubin, total: 0.3 Comment: Negative elevation in total bilirubin By: Kevin Bower PA Time: 07/17 1718 Value: Glucose: 181 Comment: Hyperglycemia By: Kevin Bower PA Time: 07/17 1718 Value: BUN: 8 Comment: (Reviewed) By: Kevin Bower PA Time: 07/17 1718 Value: Creatinine(!): 0.43 Comment: (Reviewed) By: Kevin Bower PA Time: 07/17 1718 Value: eGFR: 137 Comment: Kidney function intact By: Kevin Bower PA Time: 07/17 1718 Value: COVID-19 RNA: Negative Comment: (Reviewed) By: Kevin Bower PA Time: 07/17 1718 Value: Influenza A RNA: Negative Comment: (Reviewed) By: Kevin Bower PA Time: 07/17 1718 Value: Influenza B RNA: Negative Comment: (Reviewed) By: Kevin Bowre PA Time: 07/17 1718 Value: RSV RNA: Negative Comment: Negative viral PCR By: Kevin Bower PA Time: 07/18 1719 Value: pH, Venous: 7.358 Comment: Negative for acidosis By: Kevin Bower PA Time: 07/17 1754 Comment: Obstetric ultrasound: IMPRESSION: 1 cm presumed pole adjacent to the gestational sac demonstrates no heart tones, evidence for demise. By: Kevin Bower PA Time: 07/17 1757 Comment: Reviewed patient case with JALEN Mancuso. He recommended that patient follow-up with their OBGYN. By: Kevin Bower PA Time: 07/17 1802 Comment: Re-evaluated patient. Patient states she is feeling significantly better. No nausea at this time. Approximately 1500 mL of IV fluids in total given. Reviewed lab/ultrasound results with patient and her significant other. Patient stated she felt like she was feeling good enough to go home. By: Kevin Bower PA Time: 07/17 1921 Value: Ketones, ur(!): 2+ Comment: (Reviewed) By: Kevin Bower PA Time: 07/17 1921 Value: Blood, ur(!): Trace Comment: (Reviewed) By: Kevin Bower PA Time: 07/17 1921 Value: Bacteria, ur(!): Trace Comment: (Reviewed) By: Kevin Bower PA Time: 07/17 1921 Value: UA reflex comment: Reflex to microscopic UA will be performed. Comment: Possible UTI By: Kevin Bower PA Final diagnoses: Nausea and vomiting, unspecified vomiting type before 22 weeks with retention of fetus Urinary tract infection in female Kevin Bower PA 07/17/221926 Cosigned by Dre Mancuso MD at 07/17/2022 7:46 PM CDT * Neeta Gu RN - 07/17/2022 1:07 PM CDT Patient arrives for evaluation of vomiting that started this morning. Patient denies abdominal pain. Patients' blood sugar is 166 per her dexicom. Patient's boyfriend also reports she's been very tired and slow to respond documented in this encounter Miscellaneous Notes * Post-Procedure Note - Arlen Hanson RN - 07/17/2022 3:55 PM CDT Single lumen midline inserted without difficulty using sterile technique. Flushes easily with good blood return. No bleeding or hematoma noted at this time. Pt tolerated procedure well. documented in this encounter Plan of Treatment Not on file documented as of this encounter Procedures Procedure Name Priority Date/Time Associated Diagnosis Comments URINALYSIS AND REFLEX TO MICROSCOPIC AND CULTURE STAT 07/17/2022 6:52 PM CDT URINALYSIS, MICROSCOPIC ONLY STAT 07/17/2022 6:52 PM CDT US OB UNDER 14 WEEKS W ENDOVAGINAL ED 07/17/2022 5:09 PM CDT INFLUENZA A/B, RSV, AND COVID-19 PCR Routine 07/17/2022 2:01 PM CDT BLOOD GAS, VENOUS STAT 07/17/2022 1:4 5 PM CDT EGFR STAT 07/17/2022 1:22 PM CDT DIFFERENTIAL AUTO STAT 07/17/2022 1:2 2 PM CDT CBC WITH AUTO DIFFERENTIAL STAT 07/17/2022 1:22 PM CDT HCG, BLOOD, QUANTITATIVE STAT 07/17/2022 1:22 PM CDT COMPREHENSIVE METABOLIC PANEL STAT 07/17/2022 1:22 PM CDT POCT GLUCOSE DEVICE Routine 07/17/2022 1 :16 PM CDT documented in this encounter Results * (ABNORMAL) Urinalysis, microscopic only (07/17/2022 6:52 PM CDT) WBC, ur 0-5 0 - 5 /HPF [facility] ([place]) RBC, ur 0-2 0 - 2 /HPF [facility] ([place]) Epithelial cells, squamous, ur 1-5 0 - 5 /HPF [facility] ([place]) Bacteria, ur Trace(A) [facility] ([place]) Culture Reflex Comment Reflex conditions for urine culture (WBC >10) not met. [facility] ([place]) Urine 07/17/2022 6:52 PM CDT 07/17/2022 6:53 PM CDT us Dre Mancuso MD LAB URINE ORDERABLES Final Res ult [facility] ([place]) [facility] [place] [address] * (ABNORMAL) Urinalysis reflex to microscopic and culture Urine (07/17/2022 6:52 PM CDT) Color, ur Straw Yellow [facility] ([place]) Clarity, ur Clear Clear [facility] ([place]) Specific gravity, ur 1.011 1.003 - 1.030 [facility] ([place]) pH, urine 7.0 [facility] ([place]) Protein, ur ql Negative Negative [facility] ([place]) Glucose, ur ql 4+(A) Negative [facility] ([place]) Ketones, ur 2+(A) Negative [facility] ([place]) Bilirubin, ur Negative Negative [facility] ([place]) Blood, ur Trace(A) Negative [facility] ([place]) Urobilinogen, ur <2.0 <2.0 mg/dL [facility] ([place]) Nitrite, ur Negative Negative [facility] ([place]) Leukocyte esterase, ur Negative Negative [facility] ([place]) UA reflex comment Reflex to microscopic UA will be performed. [facility] ([place]) Urine 07/17/2022 6:52 PM CDT 07/17/2022 6:53 PM CDT Narrative [facility] ([place]) - 07/17/2022 7:05 PM CDT ?? Urine pH is affected by diet, medications, systemic acid-base disturbances, and renal tubular function. ??pH may affect urinary stone formation. ??For example, urine pH below 6.0 may help reduce the tendency for calcium phosphate stones and pH greater than 6.0 may reduce the tendency for uric acid stone formation. Source: [employer]. Last revised 05-13-2017 Urine pH is affected by diet, medications, systemic acid-base disturbances, and renal tubular function. ??pH may affect urinary stone formation. ??For example, urine pH below 6.0 may help reduce the tendency for calcium phosphate stones and pH greater than 6.0 may reduce the tendency for uric acid stone formation. Source: [employer]. Last revised 05-13-2017 Dre Mancuso MD LAB MICROBIOLOGY - GENERAL ORD ERABLES Final Result [facility] ([place]) [facility] of Laboratories [place], [place] [id number] * US Ob Under 14 Weeks W Endovaginal (07/17/2022 5:09 PM CDT) Anatomical Region Laterality Modality Abdomen N/A Ultrasound 07/17/2022 5:21 PM CDT Narrative 07/17/2022 5:23 PM CDT EXAM DESCRIPTION: ?? US OB UNDER 14 WEEKS W ENDOVAGINAL REASON FOR STUDY: ?? Intractable nausea. TECHNIQUE: ?? Transabdominal and transvaginal ??images acquired of the pelvis. COMPARISON: ?? 01/29/2022 FINDINGS: UTERUS: ??Intrauterine gestation with 1 cm crown-rump length corresponding to 7 weeks 0 day gestational age, no heart tones. ??Small subchorionic bleed. OTHER PELVIS: ??No free fluid. IMPRESSION: 1 cm presumed pole adjacent to the gestational sac demonstrates no heart tones, evidence for demise. ?? THIS IS AN ELECTRONICALLY VERIFIED FINAL REPORT 07/17/2022 5:23 PM - Electronically signed by ??Thai Cerda M.D. AR: ANIKA D: ??07/17/2022 5:23 PM T: ??07/17/2022 5:23 PM Report ID: [id number] Reading Location: ??[id number] Procedure Note Thai Cerda MD - 07/17/2022 EXAM DESCRIPTION: US OB UNDER 14 WEEKS W ENDOVAGINAL REASON FOR STUDY: Intractable nausea. TECHNIQUE: Transabdominal and transvaginal images acquired of thepelvis. COMPARISON: 01/29/2022 FINDINGS: UTERUS: Intrauterine gestation with 1 cm crown-rump length correspondingto 7 weeks 0 day gestational age, no heart tones. Small subchorionic bleed. OTHER PELVIS: No free fluid. IMPRESSION: 1 cm presumed pole adjacent to the gestational sac demonstrates nofetal heart tones, evidence for demise. THIS IS AN ELECTRONICALLY VERIFIED FINAL REPORT 07/17/2022 5:23 PM - Electronically signed by Thai Cerda M.D. AR: ANIKA Report ID: [id number] Reading Location: [id number] Kevin COLUNGA IMG OB US PROCEDURES Final R esult * Influenza A/B, RSV, and COVID-19 PCR Nasopharyngeal (07/17/2022 2:01 PM CDT) COVID-19 RNA Negative Negative [facility] ([place]) Influenza A RNA Negative Negative [facility] ([place]) Influenza B RNA Negative Negative [facility] ([place]) RSV RNA Negative Negative [facility] ([place]) Comment: Interpretive data: This test is performed using the [employer] Xpert Xpress CoV-2/Flu/RSV plus assay. This is a multiplex, real-time reverse transcriptase PCR assay intended for the qualitative detection of nucleic acid from SARS-CoV-2, influenza A, influenza B, and respiratory syncytial virus. This assay has been reviewed by the FDA for Emergency Use Authorization (EUA). The performance characteristics have been verified by the performing laboratory. Results must be considered in the clinical context, and a negative result does not rule out infection. Interpretive Data last revised 2021. Nasopharyngeal 07/17/2022 2: 01 PM CDT 07/17/2022 2:03 PM CDT Narrative [facility] ([place]) - 07/17/2022 2:43 PM CDT Is the Patient experiencing symptoms consistent with COVID?->Yes Date of Symptom Onset->07/16/22 Reason for testing?->Symptomatic Kevin COLUNGA LAB MICROBIOLOGY - GENERAL O RDERABLES Final Result [facility] ([place]) [address] [facility] [employer] [place] [address] * Blood gas, venous (07/17/2022 1:45 PM CDT) pH, Venous 7.358 7.32 - 7.43 [facility] ([place]) PCO2, Venous 35.8 40 - 50 mmHg [facility] ([place]) PO2, Venous 36.8 mmHg [facility] ([place]) Comment: Interpretive Data No Reference Range Established Current Interpretive Data was last revised on 2017. HCO3 Venous, Calculated 19.7 20 - 30 mmol/L [facility] ([place]) BE, venous -4.6 mmol/L [facility] ([place]) Comment: Interpretive Data No Reference Range Established Current Interpretive Data was last revised on 2017. Blood 07/17/2022 1:45 PM CDT 07/17/2022 2:04 PM CDT Kevin COLUNGA LAB BLOOD ORDERABLES Edited Result - Final [facility] ([place]) [address] [facility] [employer] [place] [address] * eGFR (07/17/2022 1:22 PM CDT) eGFR 137 mL/min/1. 73 m2 [facility] ([place]) Comment: Interpretive Data Reference Interval Normal [...] MD LAB BLOOD ORDERABLES Final Res ult [facility] ([place]) [facility] [place] [address] * (ABNORMAL) Differential, auto (07/17/2022 1:22 PM CDT) Neutrophil abs 10.4(H) 1.7 - 6.5 K/cumm [facility] ([place]) Imm gran abs 0.1 0.0 - 0.1 K/cumm [facility] ([place]) Lymphocyte abs 1.0 0.8 - 3.3 K/cumm [facility] ([place]) Monocyte abs 0.3 0.2 - 0.8 K/cumm [facility] ([place]) Eosinophil abs 0.0 0.0 - 0.5 K/cumm [facility] ([place]) Basophil abs 0.0 0.0 - 0.1 K/cumm [facility] ([place]) Neutrophil pct 88.4 % [facility] ([place]) Comment: Interpretive [...] was last revised on 2017. Lymphocyte pct 8.1 % [facility] ([place]) Comment: Interpretive Data Percent cell count reference ranges are not reported, since discordance with absolute values may lead to misinterpretation of CBC data. Current Interpretive Data was last revised on 2017. Monocyte pct 2.7 % [facility] ([place]) Comment: Interpretive Data Percent cell count reference ranges are not reported, since discordance with absolute values may lead to misinterpretation of CBC data. Current Interpretive Data was last revised on 2017. Eosinophil pct 0.0 % [facility] ([place]) Comment: Interpretive [...] Data was last revised on 2017. Blood 07/17/2022 1:22 PM CDT 07/17/2022 1:27 PM CDT us Dre Mancuso MD LAB BLOOD ORDERABLES Final Res ult [facility] ([place]) [address] [facility] [place] [address] * (ABNORMAL) hCG, blood, quantitative (07/17/2022 1:22 PM CDT) hCG, quant 54,341.0( H) 0.0 - 5.0 IUnits/L [facility] ([place]) Comment: Interpretive Data Non- Female premenopausal: < [...] Data was last revised on 2021. Blood 07/17/2022 1:22 PM CDT 07/17/2022 2:58 PM CDT us Kevin [facility]GA LAB BLOOD ORDERABLES Final R esult [facility] ([place]) [address] [facility] [place] [address] * (ABNORMAL) Comprehensive metabolic panel (07/17/2022 1:22 PM CDT) Pathologist [facility] Sodium 136 135 - 145 mmol/L [facility] ([place]) Potassium, pl 3.6 3.3 - 4.9 mmol/L [facility] ([place]) Chloride 102 97 - 110 mmol/L [facility] ([place]) CO2 19(L) 22 - 32 mmol/L [facility] ([place]) Anion gap 15 2 - 15 mmol/L [facility] ([place]) BUN 8 8 - 25 mg/dL [facility] ([place]) Creatinine 0.43(L) 0.60 - 1.10 mg/dL [facility] ([place]) Glucose 181 70 - 199 mg/dL [facility] ([place]) Comment: Interpretive Data Fasting glucose [...] classification and Diagnosis of Diabetes Diabetes Care 202; 46: S19-S40. Current interpretive data was last revised 2022. Calcium 9.8 8.5 - 10.3 mg/dL [facility] ([place]) Bilirubin, total 0.3 0.1 - 1.2 mg/dL [facility] ([place]) Protein, pl 7.3 6.5 - 8.5 g/dL [facility] ([place]) Albumin 4.6 3.5 - 5.0 g/dL [facility] ([place]) Alk phos 71 40 - 130 Units/L [facility] ([place]) ALT 15 7 - 45 Units/L [facility] ([place]) AST 20 10 - 45 Units/L [facility] ([place]) Blood (Blood, Venous) 07/17/2022 1:22 PM CDT 07/17/2022 1:27 PM CDT us Dre Mancuso MD LAB BLOOD ORDERABLES Final Res ult [facility] ([place]) [address] [facility] [place] [address] * (ABNORMAL) CBC with auto differential (07/17/2022 1:22 PM CDT) WBC 11.8(H) 3.8 - 9.9 K/cumm [facility] ([place]) Hgb 13.7 11.9 - 15.5 g/dL [facility] ([place]) Hct 41.7 35.6 - 45.5 % [facility] ([place]) Plt 307 150 - 400 K/cumm [facility] ([place]) MPV 9.2 9.1 - 12.3 fL [facility] ([place]) RBC 4.67 3.90 - 5.20 M/cumm [facility] ([place]) MCV 89.3 81.3 - 96.4 fL [facility] ([place]) MCH 29.3 27.1 - 33.3 pg [facility] ([place]) MCHC 32.9 32.3 - 35.7 g/dL [facility] ([place]) RDW CV 15.4(H) 11.1 - 14.9 % [facility] ([place]) RDW SD 50.7(H) 35.7 - 48.1 fL [facility] ([place]) NRBC abs 0.05(H) 0.00 - 0.01 K/cumm [facility] ([place]) Blood (Blood, Venous) 07/17/2022 1:22 PM CDT 07/17/2022 1:27 PM CDT us Dre Mancuso MD LAB BLOOD ORDERABLES Final Res ult [facility] ([place]) [address] [facility] [employer] [place] [address] * (ABNORMAL) POCT glucose (07/17/2022 1:16 PM CDT) Glucose, POC 171(H) 71 - 98 mg/dL [facility] ([place]) Blood 07/17/2022 1:16 PM CDT 07/17/2022 1:16 PM CDT us Notinfile Unknown LAB POCT ORDERABLES - DEVICE F inal Result Performing Organization Address City/[facility]/ZIP Co de Phone Number [facility] ([place]) [address] [facility] [place] [address] documented in this encounter Visit Diagnoses Diagnosis Nausea and vomiting, unspecified vomiting type- Primary before 22 weeks with retention of fetus Missed Urinary tract infection in female before 22 weeks with retention of fetus Missed Urinary tract infection in female documented in this encounter Administered Medications Inactive Administered Medications - up to 3 most recent administrations Medication Order MAR Action Action Date Dose Rate Site diphenhydrAMINE (BENADRYL) injection 25 mg 25 mg, intravenous, Administer over 2 Minutes, Once, On Wed07/17/22 at 1628, For 1 dose Given 07/17/2022 4:31 PM CDT 25 mg Lactated Ringer's (LR) bolus 1,000 mL 1,000 mL, intravenous, Once, On Wed07/17/22 at 1319, For 1 dose Restarted 07/17/2022 3:52 PM CDT Lactated Ringer's (LR) bolus 1,000 mL 1,000 mL, intravenous, Once, On Wed07/17/22 at 1729, For 1 dose New Bag 07/17/2022 5:34 PM CDT 1,000 mL metoclopramide (REGLAN) injection 10 mg 10 mg, intravenous, Administer over 1 Minutes, Once, On Wed07/17/22 at 1319, For 1 dose Given 07/17/2022 3:53 PM CDT 10 mg ondansetron (ZOFRAN) injection 4 mg 4 mg, intravenous, Administer over 2 Minutes, Once as needed, nausea, vomiting, If patient unable to tolerate PO, Starting on Wed07/17/22 at 1311, For 1 dose, Do not administer if patient had 8mg administered within 6 hours of patient presenting to ED Do not administer if patient was formally diagnosed with prolonged QT syndrome ondansetron ODT (ZOFRAN-ODT) disintegrating tablet 4 mg 4 mg, oral, Once as needed, nausea, vomiting, If able to tolerate PO, Starting on Wed07/17/22 at 1311, For 1 dose, Do not administer if patient had 8mg administered within 6 hours of patient presenting to ED Do not administer if patient was formally diagnosed with prolonged QT syndrome ondansetron ODT (ZOFRAN-ODT) disintegrating tablet 8 mg 8 mg, oral, Once, On Wed07/17/22 at 1340, For 1 dose, Indications: Nausea, VomitingIndications:Nausea,Vomit ing Given 07/17/2022 1:49 PM CDT 8 mg sodium chloride 0.9% flush 5-10 mL 5-10 mL, intra-catheter, Every 8 hours scheduled, First dose on Wed07/17/22 at 1605, Flush volume based on line type, size, and protocol. Given 07/17/2022 4:10 PM CDT 10 mL sodium chloride 0.9% flush 5-10 mL 5-10 mL, intra-catheter, As needed, line care, with each use, Starting on Wed07/17/22 at 1604, Flush volume based on line type, size, and protocol. documented in this encounter Discontinued Medications Medication Sig Discontinue Reason Start Date End Da te metoclopramide (REGLAN) 5 mg tabletIndications:Diabetic Gastroparesis Take 1 tablet (5 mg total) by mouth 4 (four) times a day 02/16/2019 03/18/2019 metoclopramide (REGLAN) 5 mg tablet Take 1 tablet (5 mg total) by mouth 4 (four) times a day for 3 days 01/30/2022 02/02/2022 documented as of this encounter Active and Recently Administered Medications Times are shown in CDT. Scheduled Medication Order 07/15/2022 07/16/2022 07/17/2022 diphenhydrAMINE (BENADRYL) injection 25 mg (COMPLETED) 25 mg, intravenous, Administer over 2 Minutes, Once, On Wed07/17/22 at 1628, For 1 dose 1631 (Given - Provid er: Charisma Kaba RN) Lactated Ringer's (LR) bolus 1,000 mL 1,000 mL, intravenous, Once, On Wed07/17/22 at 1319, For 1 dose 1320 (Hold - Provide r: Charisma Kaba RN - Reason: Other - Comment: No IV access)1552 (Restarted - Provider: Charisma Kaba RN)1715 (Stopped - Provider: Charisma Kaba RN) Lactated Ringer's (LR) bolus 1,000 mL (COMPLETED) 1,000 mL, intravenous, Once, On Wed07/17/22 at 1729, For 1 dose 1734 (New Bag - Prov ider: Charisma Kaba RN)1846 (Stopped - Provider: Charisma Kaba RN) metoclopramide (REGLAN) injection 10 mg (COMPLETED) 10 mg, intravenous, Administer over 1 Minutes, Once, On Wed07/17/22 at 1319, For 1 dose 1320 (Hold - Provide r: Charisma Kaba RN - Reason: Other - Comment: No IV access)1553 (Given - Provider: Charisma Kaba RN) metoclopramide (REGLAN) injection 5 mg 5 mg, intravenous, Once, On Wed07/17/22 at 1628, For 1 dose, Indications: Nausea and Vomiting 1636 (Hold - Provide r: Charisma Kaba RN - Reason: Patient/family refused) ondansetron ODT (ZOFRAN-ODT) disintegrating tablet 8 mg (COMPLETED) 8 mg, oral, Once, On Wed07/17/22 at 1340, For 1 dose, Indications: Nausea, Vomiting 1349 (Given - Provid er: Charisma Kaba RN) sodium chloride 0.9% flush 5-10 mL 5-10 mL, intra-catheter, Every 8 hours scheduled, First dose on Wed07/17/22 at 1605, Flush volume based on line type, size, and protocol. 1610 (Given - Provid er: Charisma Kaba RN) PRN Medication Order 07/15/2022 07/16/2022 07/17/2022 ondansetron (ZOFRAN) injection 4 mg 4 mg, intravenous, Administer over 2 Minutes, Once as needed, nausea, vomiting, If patient unable to tolerate PO, Starting on Wed07/17/22 at 1311, For 1 dose, Do not administer if patient had 8mg administered within 6 hours of patient presenting to ED Do not administer if patient was formally diagnosed with prolonged QT syndrome ondansetron ODT (ZOFRAN-ODT) disintegrating tablet 4 mg 4 mg, oral, Once as needed, nausea, vomiting, If able to tolerate PO, Starting on Wed07/17/22 at 1311, For 1 dose, Do not administer if patient had 8mg administered within 6 hours of patient presenting to ED Do not administer if patient was formally diagnosed with prolonged QT syndrome 1458 (Not Given - Pr ovider: Charisma Kaba RN - Reason: Other - Comment: order changed to 8 mg and given) sodium chloride 0.9% flush 5-10 mL 5-10 mL, intra-catheter, As needed, line care, with each use, Starting on Wed07/17/22 at 1604, Flush volume based on line type, size, and protocol. documented in this encounter Orders Medications Ordered That Evan ht Not Have Been Administered Count Last Ordered Date First Ordered Date metoclopramide (REGLAN) injection 5 mg 1 ondansetron (ZOFRAN) injection 4 mg 1 07/17 ondansetron ODT (ZOFRAN-ODT) disintegrating tablet 4 mg 1 07/17/2022 sodium chloride 0.9% flush 5-10 mL 1 2022 Nursing Count Last Ordered Date First Orde red Date MISCELLANEOUS NURSING CARE ORDER (SPECIFY) 1 07/17/2022 documented in this encounter Additional Health Concerns Infection Onset Date Last Indicated Resolved Time COVID: Suspected 07/17/2022 07/17/2022 07/17/2022 2:44 PM CDT documented as of this encounter Care Teams Meat Boner Relationship Specialty Start Date End Date Teresita Marquez MD [address] [facility] [address] [place] [address] PCP - General Family Medicine 02/02/22 Warren Phillips MD Consulting Physician Gastroenterology 02/16/19 Miscellaneous, Not In File 07/23/21 Nicole Lopez DO [address] [facility] [address] [place] [address] Resident Family Medicine 11/22/21 Naomi Sanches MD [address] [facility] [address] [place] [address] Referring Physician General Surgery 11/22/21 documented as of this encounter
--- OUTSIDE RECORDS SUMMARY | 2024-05-10 18:36 | XMS_ITS | Encounter Summary ---
Author Organization [facility] Healthcare Address [address] [place] [address] Care Team Providers Care Airbrush Artist Name Role Phone Warren Phillips MD Unavailable [phone] Miscellaneous, Not In File Unavailable Unava ilable Nicole Lopez DO Unavailable Naomi Sanches MD Unavailable Teresita Marquez MD Primary Care Provide r Encounter Details Date Type Department Care Team (Late st Contact Info) Description 02/06/2022 9:20 AM CDT [address] [id number] Health maintenance examination; Encounter for screening for HIV; Need for hepatitis C screening test; Uncontrolled type 1 diabetes mellitus with hyperglycemia (CMS/HCC) (HCC) Social History Tobacco Use Types Packs/Day [...] often do you attend chur ch or mandaen services? Never 01/20/2022 Do you belong to any clubs o r organizations such as jainism groups, unions, fraternal or athletic groups, or [...] on file Legal Sex Female 3:13 AM [employer] A[employer] Gender Identity Not on file Sexual Orientation Not on file documented as of this encounter Plan of Treatment Not on file documented as of this encounter Visit Diagnoses Diagnosis Health maintenance examination Unspecified general medical examination Encounter for screening for HIV Need for hepatitis C screening test Special screening examination for other specified viral diseases Uncontrolled type 1 diabetes mellitus with hyperglycemia (CMS/HCC) (HCC) documented in this encounter Care Teams Airbrush Artist Relationship Specialty Start Date End Date Teresita Marquez MD [address] [facility] [address] [place] [address] PCP - General Family Medicine 02/02/22 Warren Phillips MD Consulting Physician Gastroenterology 02/16/19 Miscellaneous, Not In File 07/23/21 Nicole Lopez DO [address] [place] [address] [address] [place] [address] Resident Family Medicine 11/22/21 Naomi Sanches MD [address] [place] [address] [address] [facility] [place] [address] Referring Physician General Surgery 11/22/21 documented as of this encounter
--- OUTSIDE RECORDS SUMMARY | 2024-05-10 18:36 | XMS_ITS | Encounter Summary ---
Author Organization [facility] Healthcare Address [address] [place] [address] Care Team Providers Care Waste Management Engineer Name Role Phone Warren Phillips MD Unavailable [phone] Miscellaneous, Not In File Unavailable Unava ilable No, Physician Primary Care Provider [phone] Nicole Lopez DO Unavailable Naomi Sanches MD Unavailable Reason for Visit * Reason Comments Vomiting Weakness - Generalized Encounter Details Date Type Department Care Team (Latest Contact Info) Description 01/18/2022 6:23 PM CDT - 01/21/2022 4:16 PM CDT Hospital Encounter [facility] [address] [place] [address] Tavo Ochoa MD [address] [place] [address] [place] [address] Kanchan Amos MD [address] [place] [address] [place] [address] Deniz Guevara MD [address] [facility] [address] [place] [address] Augusto Salgado MD [address] [place] [address] Kisha Holland MD [address] [facility] [place] [address] Cally Crespo MD [address] [facility] [place] [address] Nausea and vomiting, unspecified vomiting type (Primary Dx); Dehydration; Diabetic ketoacidosis without coma associated with type 1 diabetes mellitus (CMS/HCC) (HCC); Hyponatremia Discharge Disposition: Left Against Medical Advice Social History Tobacco Use Types Packs/Day Years [...] week 01/20/2022 How often do you attend [facility] or restorationist services? Never 01/20/2022 Do you belong to any clubs o r organizations such as synagogue groups, unions, fraternal or athletic groups, or [...] you are drinking? Patient does not drink 2 Q3: How often do you have si [...] points, staff should administer the PHQ-9) 0 03/13/2020 Hunger Vital Sign Answer Date Recorded Within [...] needed for daily living? 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 Gender Identity Not on file Sexual Orientation Not on file documented as of this encounter Last Filed Vital Signs Vital Sign Reading Time Taken Comments Blood Pressure 102/62 01/21/2022 3:46 PM CDT Pulse 81 01/21/2022 3:46 PM CDT Temperature 36.2 ??C (97.2 ??F) 01/21/2022 3:46 PM CD T Respiratory Rate 18 01/21/2022 3:46 PM CDT Oxygen Saturation 100% 01/21/2022 3:46 PM CDT Inhaled Oxygen Concentration - - Weight 73.4 kg (161 lb 13.1 oz) 01/20/2022 5:00 AM CDT Height 154.9 cm (5' 1 ) 01/18/2022 11:1 5 PM CDT Body Mass Index 30.58 01/18/2022 11:15 PM CDT documented in this encounter Discharge Diagnoses Diagnosis Type 1 diabetes mellitus with ketoacidosis without coma (HCC) - TYPE 1 DIABETES MELLITUS WITH KETOACIDOSIS WITHOUT COMA Hypo-osmolality and hyponatremia - HYPO-OSMOLALITY AND HYPONATREMIA Other disorders of phosphorus metabolism - OTHER DISORDERS OF PHOSPHORUS METABOLISM Cannabis abuse, uncomplicated - CANNABIS ABUSE, UNCOMPLICATED Dehydration - DEHYDRATION Hypokalemia - HYPOKALEMIA 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 Avoid concentrated sweets such ascookies, cake, candy and ice cream. Also, avoid sugar-sweetened beverages such as lemonade, sweet tea, regular soda, juice and Gatorade. Eat 45 g (women), 60 g (men) of carbohydrates at each meal. Eat 3 meals per day and try to eat at consistent times. If interested, ask your doctor for referral tooutpatient nutrition counseling. Call [facility] Outpatient Dietitian's office at [phone] for questions about your diet. Additional resources available from the [employer] can be found at www.diabetes.org/nutrition documented in this encounter Medications at Time of Discharge insulin lispro (HumaLOG) 100 unit/mL injection Inject under the skin 3 (three) times a day before meals Uses per sliding scale 1 unit per every 7-8 grams of carb max of 50 units per day insulin glargine (insulin glargine) 100 unit/mL (3 mL) pen for injection Inject 10 Units under the skin every 12 (twelve) hours 6 mL 07/23/2021 01/30/2022 insulin syringe-needle U-100 0.3 mL 31 gauge x 5/16 syringe 1 Syringe 01/29/2022 OneTouch Verio test strips strip USE 1 STRIP TO CHECK GLUCOSE 4 TIMES DAILY 12/01/2019 01/29/2022 TechLITE Insulin Syr Half Unit 0.3 mL 31 gauge x 5/16 syringe USE ONE NEW SYRINGE 4 TIMES 02/21/2020 01/29/2022 documented as of this encounter Discharge Disposition Disposition Code Departure Means Destination Left Against Medical Advice documented in this encounter Progress Notes * Cally Crespo MD - 01/21/2022 4:16 PM CDT AMA NOTE Notified by nursing shortly after 4:00 p.m. patient decided to leave AM despite recent conversation I had with her. Cally Crespo MD Director of Family Medicine Inpatient Services Beef Cattle Farm Manager, [facility] Family Medicine Residency [facility] * Nicole Lopez, - 01/21/2022 7:04 AM CDT General Medicine Daily Progress SUBJECTIVE Chief complaint of nausea and vomiting. Interval History: 26-year-old female with history of type 1 diabetes and DKA presented to ED with nausea and vomiting. On arrival to the ED, her blood sugar was 251 but her total CO2 was 9. She was started on insulin drip as well as IV fluids and transferred to ICU. Found to have Anion gap metabolic acidosis on admission that has since been corrected. During this admission she has been intermittently hypokalemic, h ypophosphatemic and hyponatremic. Pharmacy has been on board for electrolyte repletion. Insulin drip was discontinued yesterday and she was transferred to the floor. [facility] she is feeling much better and her vital signs were stable. She was able to tolerate some p.o. intake last night but mostly just liquids. She states she is still nauseous and has not tried to eat breakfast this morning. OBJECTIVE Vitals: 24hr Min/Max: Temp Min: 36.3 ??C (97.3 ??F) Max: 36.4 ??C (97.6 ??F) Pulse Min: 72 Max: 103 BP Min: 89/43 Max: 124/80 Resp Min: 14 Max: 19 SpO2 Min: 98 % Max: 100 % Most Recent : Vitals: 01/21/22 0752 BP: 106/63 Pulse: 72 Resp: 16 Temp: 36.4 ??C (97.6 ??F) SpO2: 100% I/O last 2 completed shifts: In: 732.1 [P.O.:100; I.V.:632.1] Out: 1350 [Urine:1350] No intake/output data recorded. Physical Exam Vitals and nursing note reviewed. Constitutional: General: She is not in acute distress. HENT: Head: Normocephalic and atraumatic. Right Ear: External ear normal. Left Ear: External ear normal. Eyes: Extraocular Movements: Extraocular movements intact. Conjunctiva/sclera: Conjunctivae normal. Pupils: Pupils are equal, round, and reactive to light. Cardiovascular: Rate and Rhythm: Normal rate and regular rhythm. Heart sounds: No murmur heard. Pulmonary: Effort: Pulmonary effort is normal. Breath sounds: Normal breath sounds. No wheezing. Abdominal: General: Bowel sounds are normal. There is no distension. Palpations: Abdomen is soft. There is no mass. Tenderness: There is no abdominal tenderness. There is no guarding or rebound. Musculoskeletal: General: Normal range of motion. Cervical back: Normal range of motion and neck supple. Lymphadenopathy: Cervical: No cervical adenopathy. Skin: General: Skin is warm and dry. Findings: No rash. Neurological: General: No focal deficit present. Mental Status: She is alert. Gait: Gait is intact. Psychiatric: Mood and Affect: Mood and affect normal. Lab/Current Medication Review: Recent Results (from the past 24 hour(s)) Renal function panel Collection Time: 01/20/22 3:34 PM Result Value Ref Range Sodium 132 (L) 135 - 145 mmol/L Potassium, pl 3.5 3.3 - 4.9 mmol/L Chloride 98 97 - 110 mmol/L CO2 22 22 - 32 mmol/L Anion gap 12 2 - 15 mmol/L BUN 7 (L) 8 - 25 mg/dL Creatinine 0.32 (L) 0.60 - 1.10 mg/dL Glucose 240 (H) 70 - 199 mg/dL Calcium 7.8 (L) 8.5 - 10.3 mg/dL Phosphorus, pl 2.2 (L) 2.3 - 4.5 mg/dL Albumin 3.6 3.5 - 5.0 g/dL eGFR Collection Time: 01/20/22 3:34 PM Result Value Ref Range eGFR 149 mL/min/1.73 m2 POCT glucose Collection Time: 01/20/22 4:04 PM Result Value Ref Range Glucose, POC 213 (H) 71 - 98 mg/dL POCT glucose Collection Time: 01/20/22 8:23 PM Result Value Ref Range Glucose, POC 216 (H) 71 - 98 mg/dL POCT glucose Collection Time: 01/21/22 12:03 AM Result Value Ref Range Glucose, POC 161 (H) 71 - 98 mg/dL POCT glucose Collection Time: 01/21/22 2:19 AM Result Value Ref Range Glucose, POC 164 (H) 71 - 98 mg/dL Renal function panel Collection Time: 01/21/22 2:28 AM Result Value Ref Range Sodium 136 135 - 145 mmol/L Potassium, pl 2.7 (Critical) 3.3 - 4.9 mmol/L Chloride 101 97 - 110 mmol/L CO2 27 22 - 32 mmol/L Anion gap 8 2 - 15 mmol/L BUN 8 8 - 25 mg/dL Creatinine 0.31 (L) 0.60 - 1.10 mg/dL Glucose 172 70 - 199 mg/dL Calcium 7.8 (L) 8.5 - 10.3 mg/dL Phosphorus, pl 1.9 (L) 2.3 - 4.5 mg/dL Albumin 3.5 3.5 - 5.0 g/dL eGFR Collection Time: 01/21/22 2:28 AM Result Value Ref Range eGFR 150 mL/min/1.73 m2 POCT glucose Collection Time: 01/21/22 7:56 AM Result Value Ref Range Glucose, POC 86 71 - 98 mg/dL POCT glucose Collection Time: 01/21/22 11:41 AM Result Value Ref Range Glucose, POC 163 (H) 71 - 98 mg/dL No results found. Current Facility-Administered Medications Medication Dose Route Frequency Provider Last Rate Last Admin acetaminophen (TYLENOL) tablet 650 mg 650 mg oral Q6H PRN Kisha Holland MD bisacodyl EC (DULCOLAX EC) tablet 10 mg 10 mg oral Daily PRN Kisha Holland MD dextrose gel in packet 15 g 15 g oral Q15 Min PRN Augusto Salgado MD Or dextrose (D10W) 10% bolus 250 mL 250 mL intravenous Q15 Min PRN Augusto Salgado MD enoxaparin (LOVENOX) syringe 40 mg 40 mg subcutaneous Daily-2100 Augusto Salgado MD glucagon injection 1 mg 1 mg intramuscular Q30 Min PRN Augusto Salgado MD insulin glargine (LANTUS, BASAGLAR, SEMGLEE) 100 unit/mL (3 mL) pen injection 20 Units 20 Units subcutaneous Nightly Augusto Salgado MD 20 Units at 01/20/222025 insulin lispro (HumaLOG, ADMELOG) 100 unit/mL pen injection 0-5 Units 0-5 Units subcutaneous QID (with meals & nightly) Alesia Kraus MD magnesium hydroxide (MILK OF MAGNESIA) 80 mg/mL (33.3 mg/mL as elemental magnesium) oral [id number] mL 30 mL oral Daily PRN Kisha Holland MD mineral oil (FLEET MINERAL OIL) enema 133 mL 1 enema rectal Daily PRN Kisha Holland MD ondansetron (ZOFRAN) injection 4 mg 4 mg intravenous Q4H PRN Kisha Holland MD potassium phosphates 30 mmol in sodium chloride 0.9% 500 mL IVPB 30 mmol intravenous Once Kisha Holland MD 85 mL/hr at 01/21/22 1026 30 mmol at 01/21/22 1026 sodium chloride 0.9% flush 5-10 mL 5-10 mL intra-catheter Q[facility]H [facility] Augusto Salgado MD 10 mL at 01/21/22 0605 sodium chloride 0.9% flush 5-10 mL 5-10 mL intra-catheter PRN Augusto Salgado MD A/P: Principal Problem: Type 1 diabetes mellitus with ketoacidosis without coma (CMS/HCC) ([facility]) Active Problems: Uncontrolled type 1 diabetes mellitus with hyperglycemia (CMS/HCC) ([facility]) Hypokalemia Marijuana abuse Hypophosphatemia Hyponatremia Nausea and vomiting, unspecified vomiting type Resolved Problems: No resolved hospital problems. MDM: Type 1 diabetes without coma Nausea and vomiting Positive Ketones in urine, BS>250, anion gap -Comes from ICU where she was on insulin drip -Anion gap is now closed -20 units Lantus nightly -SSI 4x daily w/ meals and nightly -patient can advance diet as tolerated Hypokalemia -2.7 today -will replace today with 40mEq IV -Daily BMPs Hyponatremia -intermittent hypoNa during admission -136 today -Daily BMPs Hypophosphatemia -has had low Phos for entire admission -1.9 today -replace today with K phos 30mmol IV -Daily BMPs Diet: Adult diet consistent carbohydrate, only tolerating liquids and bland diet PCM: None Consults: Electrolyte repletion per pharmacy, diabetes education Code status: Full code DVT prophylaxis: Lovenox, however patient routinely refuses GI prophylaxis: None Midline LUE DC Criteria: Improvement in electrolytes and nausea/vomiting; likely dc tomorrow if she improves diet today Admission > 2 MNs Voice recognition software [employer] Direct was used dictate and transcribe this document. Diamond Expert variances may occur. Despite proofreading, typographical errors may occur. Nicole Lopez DO 01/21/2022 11:48 AM [facility] Residency Program [facility] Cosigned by Cally Crespo MD at 01/21/2022 3:42 PM CDT Associated attestation - Cally Crespo MD - 01/21/2022 3:42 PM CDT I personally saw and examined the patient on 01/21/2022 and discussed the case with the resident. Marcus reviewed the resident's note and agree with the content and plan as written. Additional information as noted below. Patient seen this afternoon. Patient up and awake. Patient reports has not had any nausea since last night. Has tolerated her diet today. Patient currently receiving IV potassium replacement. Patientis telling me she does not wish to stay in the hospital today. I did explain to the patient her potassium was critically low at 2.7 this morning as well as low phosphorus. I did recommend rechecking labs after infusion is completed this evening. If labs normal, she could potentially go home today but if abnormal would need to remain for continued replacement. On exam, heart regular rate rhythm. Lungs are clear. Abdomen is soft and nontender. She is fully awake and alert x3. After explaining to patient need to remain to complete treatment, she tells me she is still most likely leaving. Explained to patient she would need to leave AMA this is the case. Treatment as otherwise outlined in resident physician note. MDM: Nadia Crespo MD Director of Family Medicine Inpatient Services Beef Cattle Farm Manager, [facility] Res[facility] * Nya Waters RPh - 01/21/2022 5:54 AM CDT Pharmacy Consult -Electrolyte Repletion Protocol Electrolyte monitoring performed by pharmacy on labs from 01/21/22 0228, Na+=136 K+=2.7 Phos=1.9 Potassium phosphate 30mmol replacement ordered in addition to MD order of 40meq iv potassium chloride and 20meq po potassium chloride. Pharmacy will continue to follow daily. Thank you, Nya Waters RPh [facility] Pharmacy department * Augusto Salgado MD - 01/20/2022 3:30 PM CDT Critical Care Medicine Daily Progress Subjective: This patient is been followed by critical care because of Diabetes ketoacidosis, volume depletion, electrolyte imbalance Interval history: Patient family started take p.o. and she feels overall better. He is on Lantus and sliding scale insulin. Scheduled Medications: enoxaparin, 40 mg, subcutaneous, Daily-2100 insulin glargine, 20 Units, subcutaneous, Nightly insulin lispro, 0-5 Units, subcutaneous, Q4H BOB sodium chloride 0.9%, 5-10 mL, intra-catheter, Q8H BOB Continuous Medications: dextrose 5% and sodium chloride 0.9%, 75 mL/hr, Last Rate: 75 mL/hr (01/20/22 0829) PRN Medications: dextrose OR dextrose glucagon sodium chloride 0.9% Objective: Vitals: Most Recent: Vitals: 01/20/22 1200 01/20/22 1300 01/20/22 1400 01/20/22 1500 BP: 121/79 110/71 112/69 124/80 BP Location: Left arm Left arm Left arm Left arm Patient Position: Lying Lying Lying Lying Pulse: 94 96 86 103 Resp: 14 19 17 16 Temp: 36.4 ??C (97.6 ??F) TempSrc: Temporal SpO2: 99% 99% 100% 99% Weight: Height: 24hr Min/Max: Temp Min: 36.3 ??C (97.4 ??F) Max: 37.5 ??C (99.5 ??F) Pulse Min: 79 Max: 112 BP Min: 97/64 Max: 139/93 Resp Min: 12 Max: 21 SpO2 Min: 97 % Max: 100 % Vent settings: Hemodynamic parameters for last 24 hours: I/O: I/O last 2 completed shifts: In: 3777 [P.O.:240; I.V.:3283; IV Piggyback:254] Out: 3100 [Urine:3100] Physical Exam: Awake following commands Blood pressure is 124/80 heart rate was 103 respiratory rate was 16 oxygen saturation was 99% temperature was 97.6 degrees. HEENT no discharge per ears nose Neck no jugular distention Lungs no wheezing Cardiovascular was regular non tachycardic Abdomen was soft not distended Extremities showed no significant erythema Skin shows no rash Neurologically the patient is awake and interactive Musculoskeletal no evidence of joint inflammation Lab/Radiology/Diagnostic Review: Reviewed. Recent Results (from the past 24 hour(s)) Basic metabolic panel Collection Time: 01/19/22 4:27 PM Result Value Ref Range Sodium 132 (L) 135 - 145 mmol/L Potassium, pl 3.3 3.3 - 4.9 mmol/L Chloride 102 97 - 110 mmol/L CO2 19 (L) 22 - 32 mmol/L Anion gap 12 2 - 15 mmol/L BUN 9 8 - 25 mg/dL Creatinine 0.33 (L) 0.60 - 1.10 mg/dL Glucose 140 70 - 199 mg/dL Calcium 7.5 (L) 8.5 - 10.3 mg/dL Magnesium Collection Time: 01/19/22 4:27 PM Result Value Ref Range Magnesium 1.8 1.4 - 2.5 mg/dL Phosphorus Collection Time: 01/19/22 4:27 PM Result Value Ref Range Phosphorus, pl 2.1 (L) 2.3 - 4.5 mg/dL eGFR Collection Time: 01/19/22 4:27 PM Result Value Ref Range eGFR 147 mL/min/1.73 m2 POCT glucose Collection Time: 01/19/22 4:29 PM Result Value Ref Range Glucose, POC 130 (H) 71 - 98 mg/dL POCT glucose Collection Time: 01/19/22 5:30 PM Result Value Ref Range Glucose, POC 155 (H) 71 - 98 mg/dL POCT glucose Collection Time: 01/19/22 6:26 PM Result Value Ref Range Glucose, POC 151 (H) 71 - 98 mg/dL POCT glucose Collection Time: 01/19/22 7:20 PM Result Value Ref Range Glucose, POC 118 (H) 71 - 98 mg/dL POCT glucose Collection Time: 01/19/22 7:36 PM Result Value Ref Range Glucose, POC 119 (H) 71 - 98 mg/dL POCT glucose Collection Time: 01/19/22 11:45 PM Result Value Ref Range Glucose, POC 174 (H) 71 - 98 mg/dL POCT glucose Collection Time: 01/20/22 4:01 AM Result Value Ref Range Glucose, POC 176 (H) 71 - 98 mg/dL Renal function panel Collection Time: 01/20/22 5:04 AM Result Value Ref Range Sodium 135 135 - 145 mmol/L Potassium, pl 3.2 (L) 3.3 - 4.9 mmol/L Chloride 99 97 - 110 mmol/L CO2 18 (L) 22 - 32 mmol/L Anion gap 17 (H) 2 - 15 mmol/L BUN 8 8 - 25 mg/dL Creatinine 0.30 (L) 0.60 - 1.10 mg/dL Glucose 232 (H) 70 - 199 mg/dL Calcium 8.2 (L) 8.5 - 10.3 mg/dL Phosphorus, pl 1.1 (L) 2.3 - 4.5 mg/dL Albumin 3.9 3.5 - 5.0 g/dL CBC with auto differential Collection Time: 01/20/22 5:04 AM Result Value Ref Range WBC 6.0 3.8 - 9.9 K/cumm Hgb 11.4 (L) 11.9 - 15.5 g/dL Hct 32.1 (L) 35.6 - 45.5 % Plt 283 150 - 400 K/cumm MPV 9.4 9.1 - 12.3 fL RBC 3.90 3.90 - 5.20 M/cumm MCV 82.3 81.3 - 96.4 fL MCH 29.2 27.1 - 33.3 pg MCHC 35.5 32.3 - 35.7 g/dL RDW CV 14.8 11.1 - 14.9 % RDW SD 44.3 35.7 - 48.1 fL NRBC abs 0.00 0.00 - 0.01 K/cumm Magnesium Collection Time: 01/20/22 5:04 AM Result Value Ref Range Magnesium 1.9 1.4 - 2.5 mg/dL Differential, auto Collection Time: 01/20/22 5:04 AM Result Value Ref Range Neutrophil abs 4.1 1.7 - 6.5 K/cumm Imm gran abs 0.0 0.0 - 0.1 K/cumm Lymphocyte abs 1.1 0.8 - 3.3 K/cumm Monocyte abs 0.7 0.2 - 0.8 K/cumm Eosinophil abs 0.0 0.0 - 0.5 K/cumm Basophil abs 0.0 0.0 - 0.1 K/cumm Neutrophil pct 68.5 % Imm gran pct 0.5 % Lymphocyte pct 18.6 % Monocyte pct 12.0 % Eosinophil pct 0.2 % Basophil pct 0.2 % eGFR Collection Time: 01/20/22 5:04 AM Result Value Ref Range eGFR 151 mL/min/1.73 m2 POCT glucose Collection Time: 01/20/22 8:33 AM Result Value Ref Range Glucose, POC 186 (H) 71 - 98 mg/dL POCT glucose Collection Time: 01/20/22 11:46 AM Result Value Ref Range Glucose, POC 157 (H) 71 - 98 mg/dL Assessment and Plan: 1. Neurologically: Awake and interactive 2. Cardiovascular: Sinus rhythm with good blood pressure 3. Respiratory: No distress on room air 4. GI: Tolerating p.o. intake although just liquids since she still anorexia 5. and Renal: BUN and creatinine have normalized. Potassium is low and is been replaced along with phosphorus 6. Endocrine: She is on sliding scale plus fingersticks. Will discontinue IV fluids. Will repeat chemistry today to make sure the anion gap dose not widen again. Clinically she is significantly better and does not smell a ketones edema 7. Hematologically: CBC is overall stable 8. DVT prophylaxis: Lovenox 9. Id: Currently on no antibiotics Will repeat chemistry and if stable will moved to the floor Augusto Bai MD Critical Care 01/20/2022 3:30 PM Voice recognition software was used to dictate and transcribe this document. Despite proofreading, spinner fixer variances and/or typographical errors might have occurred. * Alejandrina Gil - 01/20/2022 11:10 AM CDT Karina Fuchs [id number] Deniz Guevara MD Pre-Education Assessment Visit Type: Initial Introduction: ID verified, Alert/ oriented x 4, Education provided with patient approval, Patient present and able to participate Provider: Medical/Automotive Heavy Mechanic/PCP Treatment Prior To Admission: Insulin, Blood glucose monitoring Knowledge Base: Experienced Hemaglobin A1c: Knows value Home Testing: Greater than 2 times per day Adherence To: Insulin regimen, Blood Glucose Testing Regimen Exercise Habits: Active Hypoglycemia: Hardly ever Home Supplies: No assistance needed Diabetes Management Education Provided: Please see the Patient Education Activity Patient seen as requested for diabetes education. Patient has been seen several times by healthcare educator in the past. Patient awake and participated in education. Patient stated that she has been taking her insulin as prescribed and has been checking her blood sugar. Ms. Fuchs shared that she just started her period and that her blood sugars are always high around that time. We have discussed this in the past and she is aware that her blood sugars are affected by her hormones. Patient said she has all her medications and supplies and does not need any assistance. Patient had no questions for me at this time. She has an appointment with her munitions factory worker on February 06, 2022. Patient was instructed to contact the healthcare educator if she has any questions or needs assistance, phone number provided. Alejandrina Gil Activity Therapy Specialist 01/20/2022 11:37 AM * Pascual Espinal, [facility] - 01/20/2022 7:28 AM CDT Pharmacy Consult -Electrolyte Repletion Protocol Electrolyte monitoring performed by pharmacy on labs from 01/20/22 05:04 Na+=135 K+=3.2 Mg+=1.9 Phos=1.1 Potassium phosphate 30 mmol ivpb run X 1 dose per pharmacy electrolyte replacement protocol for potassium = 3.2 and phosphorous +=1.1 on 01/20/22 replacement ordered. Pharmacy will continue to follow daily. Thank you, Pascual Espinal RPh [facility] Pharmacy department * Brandee Suárez - 01/19/2022 2:48 PM CDT Nutrition Assessment Reason for Assessment: Initial Nutrition Assessment and Diet Education Encounter Date: 01/19/22 2:48 PM Nutrition Assessment and Plan: Patient is a 26 y.o. female. Admit Dx: DKA, TYPE 1, NOT AT GOAL (CMS/HCC) ([facility]). Admitted on 01/18/2022, current LOS is 1 days. Screened for DKA. Hx of dm1. Unable to interview d/t sleeping soundly. Per EMR, wt fluctuates up and down with most recent change 5 lb gain in last 2 months. Pediatric Nutrition Screen What diet do you follow at home?: Carb count diet Adult Malnutrition Scoring Tool (MST) What diet do you follow at home?: Carb count diet Have You Recently Lost Weight Without Trying?: No Have you been eating poorly because of a decreased appetite?: No Malnutrition Screening Tool (MST) Score: 0 Current diet order: Adult Diet Clear Liquid Pt intake Unable to determine . PO intakes: no intakes documented Nutrition Diagnosis 1: Food and nutrition-related knowledge deficit Related to: Lack of education Evidenced by: Patient interview Interventions: Education Monitoring and Evaluation: Labs, Diet-related questions, Discharge plans, Plan of care, PO intake Goals: Patient/caregiver able to teach back understanding of role of diet in disease process prior to discharge Recommendations: Left consistent carb handout on bedside Wt Readings from Last 10 Encounters: 01/18/22 69.9 kg (154 lb 1.6 oz) 11/22/21 67.8 kg (149 lb 8 oz) 10/25/21 75.7 kg (166 lb 14.2 oz) 07/22/21 73.1 kg (161 lb 2.5 oz) 04/28/21 76.5 kg (168 lb 11.2 oz) 03/26/21 64.1 kg (141 lb 5 oz) 03/05/21 66 kg (145 lb 8.1 oz) 11/16/20 73.5 kg (162 lb) 11/17/20 73.5 kg (162 lb 0.6 oz) 03/12/20 72.6 kg (160 lb) Estimated needs: Total Kcal/kg Estimated Needs : 1747.5 based on Kcal/k. Type of Weight Used for Estimated Kcals: Current MSJ using [employer] Total Protein Estimated Needs (gm): 69.9 Protein Needs Based on g/k.0 Type of Weight Used for Estimated Protein : Current. Total Fluid Estimated Needs: 1747.5 Fluid Needs Based on : 1 ml/kcal. Objective Anthropometrics Weight: 69.9 kg (154 lb 1.6 oz) Admission Weight : 69.9 kg Weight Change: 1.86 kg (4.10 lbs) IBW/kg (Calculated) : 47.6 kg Height: 154.9 cm (5' 1 ) Weight in (lb) to have BMI = 25: 132 BMI (Calculated): 29.1 BMI Classification: BMI 25.0 - 29.9 Overweight 3 Day I/O Summary 01/17 1900 - 01/19 0659 In: 3386.2 [I.V.:1137.2] Out: 800 [Urine:800] Temp: 36.2 ??C (97.2 ??F) Past Medical History: Diagnosis Date Cannabinoid hyperemesis syndrome Dehydration 01/02/2018 Depression Diabetes mellitus (HCC) T1DM Diabetic ketoacidosis (CMS/HCC) (HCC) Miscarriage Medications and Lab Review: Scheduled Meds: enoxaparin, 40 mg, subcutaneous, Daily-2100 sodium phosphate, 30 mmol, intravenous, Once Continuous Infusions: dextrose 5%, 100 mL/hr, Last Rate: 100 mL/hr (01/19/22 0938) insulin regular, 0-30 Units/hr, Last Rate: 1.2 Units/hr (01/19/22 1439) sodium chloride 0.45%, 150 mL/hr, Last Rate: 50 mL/hr (01/19/22 0726) Sodium Date Value Ref Range Status 01/19/2022 131 (L) 135 - 145 mmol/L Final Potassium, pl Date Value Ref Range Status 01/19/2022 3.5 3.3 - 4.9 mmol/L Final BUN Date Value Ref Range Status 01/19/2022 11 8 - 25 mg/dL Final Creatinine Date Value Ref Range Status 01/19/2022 0.35 (L) 0.60 - 1.10 mg/dL Final Phosphorus, pl Date Value Ref Range Status 01/19/2022 2.1 (L) 2.3 - 4.5 mg/dL Final Albumin Date Value Ref Range Status 01/18/2022 4.9 3.5 - 5.0 g/dL Final Magnesium Date Value Ref Range Status 01/19/2022 1.8 1.4 - 2.5 mg/dL Final Calcium Date Value Ref Range Status 01/19/2022 7.4 (L) 8.5 - 10.3 mg/dL Final Lab Results Component Value Date HGBA1C 7.6 (H) 10/26/2021 POC Glucose: Latest Reference Range & Units 01/19/22 10:31 01/19/22 11:31 01/19/22 12:28 01/19/22 13:29 01/19/22 14:38 Glucose, POC 71 - 98 mg/dL 113 (H) 123 (H) 120 (H) 128 (H) 120 (H) (H): Data is abnormally high Nursing Assessment: Last BM Date: 01/18/22 Emesis Assessment Emesis Color/Appearance: Clear Teodoro Scale Score: 19 Diet Instructions Continue to follow a Consistent Carbohydrate diet upon discharge. Avoid concentrated sweets such ascookies, cake, candy and ice cream. Also, avoid sugar-sweetened beverages such as lemonade, sweet tea, regular soda, juice and Gatorade. Eat 45 g (women), 60 g (men) of carbohydrates at each meal. Eat 3 meals per day and try to eat at consistent times. If interested, ask your doctor for referral tooutpatient nutrition counseling. Call [facility] Outpatient Dietitian's office at [phone] for questions about your diet. Additional resources available from the [employer] can be found at [email or web address] Nutrition Follow-Up : 01/26/22 (DKA) KALYAN Garcias documented in this encounter H&P Notes * Augusto Salgado MD - 01/19/2022 5:37 PM CDT Critical Care Medicine History and Physical CC: Ms. Karina Fuchs 26 y.o. with history of cannabinoid related hyperemesis syndrome, diabetes type 1 who came complaining of nausea and vomiting as well as hyperglycemia Reason for admission: DKA, volume depletion, electrolyte imbalance HPI: This lady gets admitted relatively frequent because of DKA. This time she presented to the emergency room complaining of generalized weakness and hyperglycemia. Her blood sugar was 251 but her total CO2 was 9. She was started on insulin drip as well as IV fluids. Her sodium level had remained low with a low phosphorus which is been replaced. She feels somewhat better today but extremely tired andanorexic. He denies any shortness of breath or cough. Past Medical History: Diagnosis Date Cannabinoid hyperemesis syndrome Dehydration 01/02/2018 Depression Diabetes mellitus (HCC) T1DM Diabetic ketoacidosis (CMS/HCC) (HCC) Miscarriage Past Surgical History: Procedure Laterality Date SECTION, CLASSIC 2017 TONSILLECTOMY Bilateral 2002 Medications Prior to Admission Medication Sig Dispense Refill Last Dose insulin glargine (insulin glargine) 100 unit/mL (3 mL) pen for injection Inject 10 Units under the skin every 12 (twelve) hours (Patient taking differently: Inject 25 Units under the skin nightly) 6 mL 0 insulin lispro (HumaLOG) 100 unit/mL injection Inject under the skin 3 (three) times a day before meals Uses per sliding scale 1 unit per every 7-8 grams of carb max of 50 units per day 01/18/2022 insulin syringe-needle U-100 0.3 mL 31 gauge x 5/16 syringe 1 Syringe OneTouch Verio test strips strip USE 1 STRIP TO CHECK GLUCOSE 4 TIMES DAILY TechLITE Insulin Syr Half Unit 0.3 mL 31 gauge x 5/16 syringe USE ONE NEW SYRINGE 4 TIMES Current Facility-Administered Medications Medication Dose Route Frequency Provider Last Rate Last Admin dextrose (D10W) 10% bolus 1-500 mL 1-500 mL intravenous PRN Kanchan Amos MD dextrose gel in packet 15 g 15 g oral Q15 Min PRN Kanchan Amos MD Or dextrose (D10W) 10% bolus 250 mL 250 mL intravenous Q15 Min PRN Kanchan Amos MD dextrose 5% infusion 100 mL/hr intravenous Continuous Kanchan Amos MD 100 mL/hr at 01/19/22 0938 100 mL/hr at 01/19/22 0938 enoxaparin (LOVENOX) syringe 40 mg 40 mg subcutaneous Daily-2100 Kanchan Amos MD glucagon injection 1 mg 1 mg intramuscular Q30 Min PRN Kanchan Amos MD insulin regular bolus from bag 1-10 Units 1-10 Units intravenous PRN Kanchan Amos MD insulin regular in 0.9% sodium chloride (MYXREDLIN) 100 unit/100 mL (1 unit/mL) infusion (premix) 0-30 Units/hr intravenous Titrated Kanchan Amos MD 1.9 mL/hr at 01/19/22 1730 1.9 Units/hr at 01/19/22 1730 sodium chloride 0.45% infusion 150 mL/hr intravenous Continuous Kanchan Amos MD 50 mL/hr at 01/19/22 0726 50 mL/hr at 01/19/22 0726 No Known Allergies Social History Tobacco Use Smoking status: Never Smokeless tobacco: Never Substance and Sexual Activity Drug use: Yes Types: Marijuana Sexual activity: Yes Partners: Male Alcohol Use: Not At Risk Frequency of Alcohol Consumption: Never Average Number of Drinks: Patient does not drink Frequency of Binge Drinking: Never Family History Problem Relation Age of Onset Anemia Mother Autism Brother Review of Systems: She is somnolent and is not much cooperative with id. She complain of being very tired having nausea and vomiting and anorexia. Objective Vitals: Vitals: 01/19/22 1400 01/19/22 1500 01/19/22 1600 01/19/22 1700 BP: 119/77 100/62 123/82 128/82 BP Location: Left arm Left arm Left arm Left arm Patient Position: Lying Lying Lying Lying Pulse: 92 94 100 101 Resp: 23 20 16 12 Temp: 37.5 ??C (99.5 ??F) TempSrc: Temporal SpO2: 99% 98% 99% 100% Weight: Height: LDA: CVC Triple Lumen 01/18/22 Right Femoral (Active) Placement Date/Time: 01/18/22 0352 Hand Hygiene Performed: Yes Site Prep: Chlorhexidine Site Prep Agent has Completely Dried Before Insertion: Yes All 5 Sterile Barriers or Appropriate Barriers Used (Gloves, Gown, Cap, Mask, Large Sterile Drape):... Number of days: 0 Physical Exam: Somnolent but arousable Blood pressure is 128/82 heart rate was 101 respiratory rate was 16 oxygen saturation was 100% temperature max was 99.5. HEENT pupils are reactive Oral mucosa was dry Neck no jugular distention Lungs no wheezing or rales Cardiovascular was regular and mildly tachycardic Abdomen soft not distended nontender Extremities showed no significant erythema Skin shows no rash Musculoskeletal no evidence of joint inflammation Neurologically somnolent but nonfocal Lab/Radiology/Diagnostic Review: Reviewed. Recent Results (from the past 24 hour(s)) POCT glucose Collection Time: 01/18/22 6:15 PM Result Value Ref Range Glucose, POC 257 (H) 71 - 98 mg/dL CBC with auto differential Collection Time: 01/18/22 8:50 PM Result Value Ref Range WBC 12.4 (H) 3.8 - 9.9 K/cumm Hgb 14.8 11.9 - 15.5 g/dL Hct 43.7 35.6 - 45.5 % Plt 460 (H) 150 - 400 K/cumm MPV 9.5 9.1 - 12.3 fL RBC 5.13 3.90 - 5.20 M/cumm MCV 85.2 81.3 - 96.4 fL MCH 28.8 27.1 - 33.3 pg MCHC 33.9 32.3 - 35.7 g/dL RDW CV 15.6 (H) 11.1 - 14.9 % RDW SD 48.8 (H) 35.7 - 48.1 fL NRBC abs 0.00 0.00 - 0.01 K/cumm Comprehensive metabolic panel Collection Time: 01/18/22 8:50 PM Result Value Ref Range Sodium 130 (L) 135 - 145 mmol/L Potassium, pl 5.2 (H) 3.3 - 4.9 mmol/L Chloride 95 (L) 97 - 110 mmol/L CO2 9 (L) 22 - 32 mmol/L Anion gap 26 (H) 2 - 15 mmol/L BUN 25 8 - 25 mg/dL Creatinine 0.56 (L) 0.60 - 1.10 mg/dL Glucose 251 (H) 70 - 199 mg/dL Calcium 9.5 8.5 - 10.3 mg/dL Bilirubin, total 0.8 0.1 - 1.2 mg/dL Protein, pl 8.2 6.5 - 8.5 g/dL Albumin 4.9 3.5 - 5.0 g/dL Alk phos 88 40 - 130 Units/L ALT 14 7 - 45 Units/L AST 25 10 - 45 Units/L hCG, blood, quantitative Collection Time: 01/18/22 8:50 PM Result Value Ref Range hCG, quant <5.0 0.0 - 5.0 IUnits/L Lipase Collection Time: 01/18/22 8:50 PM Result Value Ref Range Lipase 9 (L) 10 - 99 Units/L Differential, auto Collection Time: 01/18/22 8:50 PM Result Value Ref Range Neutrophil abs 10.3 (H) 1.7 - 6.5 K/cumm Imm gran abs 0.1 0.0 - 0.1 K/cumm Lymphocyte abs 1.5 0.8 - 3.3 K/cumm Monocyte abs 0.6 0.2 - 0.8 K/cumm Eosinophil abs 0.0 0.0 - 0.5 K/cumm Basophil abs 0.0 0.0 - 0.1 K/cumm Neutrophil pct 82.5 % Imm gran pct 0.5 % Lymphocyte pct 12.0 % Monocyte pct 4.6 % Eosinophil pct 0.2 % Basophil pct 0.2 % eGFR Collection Time: 01/18/22 8:50 PM Result Value Ref Range eGFR 130 mL/min/1.73 m2 Urinalysis reflex to microscopic and culture Urine Collection Time: 01/18/22 9:08 PM Specimen: Urine Result Value Ref Range Color, ur Yellow Yellow Clarity, ur Clear Clear Specific gravity, ur 1.033 (H) 1.003 - 1.030 pH, urine 5.5 Protein, ur ql 1+ (A) Negative Glucose, ur ql 4+ (A) Negative Ketones, ur 4+ (A) Negative Bilirubin, ur Negative Negative Blood, ur 3+ (A) Negative Urobilinogen, ur <2.0 <2.0 mg/dL Nitrite, ur Negative Negative Leukocyte esterase, ur Negative Negative UA reflex comment Reflex to microscopic UA will be performed. Drugs of Abuse Screen, Urine without Confirmation Collection Time: 01/18/22 9:08 PM Result Value Ref Range Amphetamine, ur Not Detected CutOff 500ng/mL Barbiturates, ur Not Detected CutOff 200ng/mL Benzodiazepines, ur Not Detected CutOff 100ng/mL Cannabinoids, ur Not Detected CutOff 50 ng/mL Cocaine, ur Not Detected CutOff 150ng/mL Fentanyl, Ur Not Detected Cutoff 1 ng/mL Methadone, ur Not Detected CutOff 300ng/mL Opiates, ur Not Detected CutOff 300ng/mL Oxycodone, ur Not Detected CutOff 100ng/mL Phencyclidine, ur Not Detected CutOff 25 ng/mL Urine Creatinine 52 mg/dL Urinalysis, microscopic only Collection Time: 01/18/22 9:08 PM Result Value Ref Range WBC, ur 6-10 (A) 0 - 5 /HPF RBC, ur >50 (A) 0 - 2 /HPF Epithelial cells, squamous, ur 1-5 0 - 5 /HPF Culture Reflex Comment Reflex conditions for urine culture (WBC >10) not met. Sepsis Lactate w/ Reflex Collection Time: 01/18/22 9:32 PM Result Value Ref Range Sepsis Lactate 2.1 (H) 0.7 - 2.0 mmol/L Sepsis Lactate w/ Reflex Collection Time: 01/18/22 9:46 PM Result Value Ref Range Sepsis Lactate 2.1 (H) 0.7 - 2.0 mmol/L POCT glucose Collection Time: 01/18/22 9:48 PM Result Value Ref Range Glucose, POC 251 (H) 71 - 98 mg/dL Magnesium Collection Time: 01/18/22 9:48 PM Result Value Ref Range Magnesium 2.3 1.4 - 2.5 mg/dL Phosphorus Collection Time: 01/18/22 9:48 PM Result Value Ref Range Phosphorus, pl 2.3 2.3 - 4.5 mg/dL POCT glucose Collection Time: 01/18/22 10:19 PM Result Value Ref Range Glucose, POC 176 (H) 71 - 98 mg/dL POCT glucose Collection Time: 01/18/22 11:37 PM Result Value Ref Range Glucose, POC 126 (H) 71 - 98 mg/dL POCT glucose Collection Time: 01/19/22 12:41 AM Result Value Ref Range Glucose, POC 172 (H) 71 - 98 mg/dL Sepsis Lactate w/ Reflex Collection Time: 01/19/22 12:46 AM Result Value Ref Range Sepsis Lactate 1.2 0.7 - 2.0 mmol/L Basic metabolic panel Collection Time: 01/19/22 12:46 AM Result Value Ref Range Sodium 132 (L) 135 - 145 mmol/L Potassium, pl 4.4 3.3 - 4.9 mmol/L Chloride 103 97 - 110 mmol/L CO2 9 (L) 22 - 32 mmol/L Anion gap 19 (H) 2 - 15 mmol/L BUN 21 8 - 25 mg/dL Creatinine 0.48 (L) 0.60 - 1.10 mg/dL Glucose 191 70 - 199 mg/dL Calcium 7.7 (L) 8.5 - 10.3 mg/dL Magnesium Collection Time: 01/19/22 12:46 AM Result Value Ref Range Magnesium 1.8 1.4 - 2.5 mg/dL Phosphorus Collection Time: 01/19/22 12:46 AM Result Value Ref Range Phosphorus, pl 1.4 (L) 2.3 - 4.5 mg/dL eGFR Collection Time: 01/19/22 12:46 AM Result Value Ref Range eGFR 135 mL/min/1.73 m2 POCT glucose Collection Time: 01/19/22 1:52 AM Result Value Ref Range Glucose, POC 188 (H) 71 - 98 mg/dL POCT glucose Collection Time: 01/19/22 2:13 AM Result Value Ref Range Glucose, POC 227 (H) 71 - 98 mg/dL POCT glucose Collection Time: 01/19/22 3:27 AM Result Value Ref Range Glucose, POC 188 (H) 71 - 98 mg/dL Basic metabolic panel Collection Time: 01/19/22 4:02 AM Result Value Ref Range Sodium 130 (L) 135 - 145 mmol/L Potassium, pl 3.8 3.3 - 4.9 mmol/L Chloride 103 97 - 110 mmol/L CO2 12 (L) 22 - 32 mmol/L Anion gap 15 2 - 15 mmol/L BUN 19 8 - 25 mg/dL Creatinine 0.51 (L) 0.60 - 1.10 mg/dL Glucose 175 70 - 199 mg/dL Calcium 7.9 (L) 8.5 - 10.3 mg/dL Magnesium Collection Time: 01/19/22 4:02 AM Result Value Ref Range Magnesium 1.9 1.4 - 2.5 mg/dL Phosphorus Collection Time: 01/19/22 4:02 AM Result Value Ref Range Phosphorus, pl 0.8 (Critical) 2.3 - 4.5 mg/dL eGFR Collection Time: 01/19/22 4:02 AM Result Value Ref Range eGFR 133 mL/min/1.73 m2 POCT glucose Collection Time: 01/19/22 4:33 AM Result Value Ref Range Glucose, POC 183 (H) 71 - 98 mg/dL POCT glucose Collection Time: 01/19/22 5:50 AM Result Value Ref Range Glucose, POC 125 (H) 71 - 98 mg/dL Infection Prevention MRSA Only (Staphylococcus aureus) PCR Nasal Collection Time: 01/19/22 6:18 AM Specimen: Nasal Result Value Ref Range PCR Scrn, Methicillin resistant Staphylococcus aureus (MRSA) Not Detected Not Detected POCT glucose Collection Time: 01/19/22 7:06 AM Result Value Ref Range Glucose, POC 112 (H) 71 - 98 mg/dL Basic metabolic panel Collection Time: 01/19/22 8:06 AM Result Value Ref Range Sodium 132 (L) 135 - 145 mmol/L Potassium, pl 3.7 3.3 - 4.9 mmol/L Chloride 104 97 - 110 mmol/L CO2 16 (L) 22 - 32 mmol/L Anion gap 12 2 - 15 mmol/L BUN 14 8 - 25 mg/dL Creatinine 0.36 (L) 0.60 - 1.10 mg/dL Glucose 122 70 - 199 mg/dL Calcium 7.9 (L) 8.5 - 10.3 mg/dL Magnesium Collection Time: 01/19/22 8:06 AM Result Value Ref Range Magnesium 1.8 1.4 - 2.5 mg/dL Phosphorus Collection Time: 01/19/22 8:06 AM Result Value Ref Range Phosphorus, pl 0.7 (Critical) 2.3 - 4.5 mg/dL eGFR Collection Time: 01/19/22 8:06 AM Result Value Ref Range eGFR 144 mL/min/1.73 m2 POCT glucose Collection Time: 01/19/22 8:36 AM Result Value Ref Range Glucose, POC 107 (H) 71 - 98 mg/dL POCT glucose Collection Time: 01/19/22 9:32 AM Result Value Ref Range Glucose, POC 103 (H) 71 - 98 mg/dL POCT glucose Collection Time: 01/19/22 10:31 AM Result Value Ref Range Glucose, POC 113 (H) 71 - 98 mg/dL POCT glucose Collection Time: 01/19/22 11:31 AM Result Value Ref Range Glucose, POC 123 (H) 71 - 98 mg/dL POCT glucose Collection Time: 01/19/22 12:28 PM Result Value Ref Range Glucose, POC 120 (H) 71 - 98 mg/dL Basic metabolic panel Collection Time: 01/19/22 12:31 PM Result Value Ref Range Sodium 131 (L) 135 - 145 mmol/L Potassium, pl 3.5 3.3 - 4.9 mmol/L Chloride 102 97 - 110 mmol/L CO2 19 (L) 22 - 32 mmol/L Anion gap 9 2 - 15 mmol/L BUN 11 8 - 25 mg/dL Creatinine 0.35 (L) 0.60 - 1.10 mg/dL Glucose 124 70 - 199 mg/dL Calcium 7.4 (L) 8.5 - 10.3 mg/dL Magnesium Collection Time: 01/19/22 12:31 PM Result Value Ref Range Magnesium 1.8 1.4 - 2.5 mg/dL Phosphorus Collection Time: 01/19/22 12:31 PM Result Value Ref Range Phosphorus, pl 2.1 (L) 2.3 - 4.5 mg/dL eGFR Collection Time: 01/19/22 12:31 PM Result Value Ref Range eGFR 145 mL/min/1.73 m2 POCT glucose Collection Time: 01/19/22 1:29 PM Result Value Ref Range Glucose, POC 128 (H) 71 - 98 mg/dL POCT glucose Collection Time: 01/19/22 2:38 PM Result Value Ref Range Glucose, POC 120 (H) 71 - 98 mg/dL POCT glucose Collection Time: 01/19/22 3:29 PM Result Value Ref Range Glucose, POC 107 (H) 71 - 98 mg/dL Basic metabolic panel Collection Time: 01/19/22 4:27 PM Result Value Ref Range Sodium 132 (L) 135 - 145 mmol/L Potassium, pl 3.3 3.3 - 4.9 mmol/L Chloride 102 97 - 110 mmol/L CO2 19 (L) 22 - 32 mmol/L Anion gap 12 2 - 15 mmol/L BUN 9 8 - 25 mg/dL Creatinine 0.33 (L) 0.60 - 1.10 mg/dL Glucose 140 70 - 199 mg/dL Calcium 7.5 (L) 8.5 - 10.3 mg/dL Magnesium Collection Time: 01/19/22 4:27 PM Result Value Ref Range Magnesium 1.8 1.4 - 2.5 mg/dL Phosphorus Collection Time: 01/19/22 4:27 PM Result Value Ref Range Phosphorus, pl 2.1 (L) 2.3 - 4.5 mg/dL eGFR Collection Time: 01/19/22 4:27 PM Result Value Ref Range eGFR 147 mL/min/1.73 m2 POCT glucose Collection Time: 01/19/22 4:29 PM Result Value Ref Range Glucose, POC 130 (H) 71 - 98 mg/dL POCT glucose Collection Time: 01/19/22 5:30 PM Result Value Ref Range Glucose, POC 155 (H) 71 - 98 mg/dL Assessment and Plan: 1. Neurologically: Patient is somnolent but arousable and following commands. Nonfocal 2. Cardiovascular: Sinus rhythm non tachycardic 3. Respiratory: No distress on room air 4. GI: She is refusing p.o. intake yet. 5. and Renal: BUN and creatinine are overall normal. Will change IV fluids to D5 normal saline until she is able to take p.o. and to help balance mild her hyponatremia 6. Endocrine: Blood sugars are overall stable on 1.3 units of insulin. Will switch her to Lantus but will give her less dose unusual at 20 units since her p.o. intake is poor. Start sliding scale insulin 7. Hematologically: CBC shows mild leukocytosis. Will check in the morning 8. DVT prophylaxis: Lovenox 9. Id: No definite evidence of infection Pain assessment: Ongoing Advance directive/code status: Full Estimated length of stay more than 2 midnights Augusto Bai MD Critical Care 01/19/2022 5:37 PM Voice recognition software was used to dictate and transcribe this document. Despite proofreading, spinner fixer variances and/or typographical errors might have occurred. documented in this encounter Procedure Notes * Deniz Guevara MD - 01/18/2022 10:02 PM CDTAssociated Order(s): Critical Care Post-Procedure Diagnose(s): Nausea and vomiting, unspecified vomiting type; Diabetic ketoacidosis without coma associated with type 1 diabetes mellitus (CMS/HCC) (HCC) Critical Care Performed by: Deniz Guevara MD Authorized by: Deniz Guevara MD CRITICAL CARE: Team: EICU Shift: PM Level of Billing: Critical Care My time spent with this patient was 50 minutes: Critical Provider Statement: I have seen and examined the patient on this day of service. I have reviewed and confirmed the history, physical exam, laboratory and radiologic data as documented in thesigned ICU note. I have reviewed and discussed my treatment plan with the ICU team and other medical/group segment consultant staff, making frequent assessments and decisions regarding this patient's complex medical care. Critical Care time was exclusive of time spent performing separately billed procedures, treating other patients, and teaching. This time was in addition to and separate from critical care provided by other practitioners in my group on this day of service. Critical Care was necessary to treat or prevent imminent or life-threatening deterioration of the following conditions: Diabetic Ketoacidosis This time was spent by me doing the following: Serial laboratory checks and Resuscitation with fluids Glycemic control I spent time reviewing and interpreting data from bedside monitors, laboratory results, and imaging, I spent time discussing the management of this critically ill patient with consultants and the medical staff and I spent time documenting in the medical record documented in this encounter Nursing Notes * Cammie Bower RN - 01/21/2022 4:11 PM CDT Pt. Signed out VINCENT. was notified. Pt. Midline was removed. * Minnie Katz RN - 01/20/2022 5:18 PM CDT Report called to U MARY Pandey. H&P given, all questions and concerns addressed at this time. Patient is alert and oriented, no belongings at bedside. Patient transferred via wheelchair to [facility] room 3604. * Seng Jean RN - 01/19/2022 10:06 PM CDT Mom called to inquire of pt's condition. Updated on blood sugar and lab result of CO2 and Gap.Offered pt food, refused to eat and drink at this time. documented in this encounter ED Notes * Tavo Ochoa MD - 01/18/2022 7:26 PM CDT HPI 01/18/2022 7:26 PM Karina Fuchs is a 26 y.o. 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 Pt reports associated symptoms of nausea and generalized weakness. Pt denies fever, chills, and cough. Pt reports symptoms starting on Wednesday01/16/22. Pt's mother states she was sick yesterday, couldn't go to her daughter's soccer game. H/o DM. Pt states that she believes she is in DKA. Pt blood glucose 257.During exam and assessment, pt appears to be sleeping. No exacerbating or alleviating factors reported. No other complaints at this time. Chief Complaint Patient presents with ??? Vomiting ??? Weakness - Generalized HPI Past Medical History: Diagnosis Date ??? Cannabinoid hyperemesis syndrome ??? Dehydration 01/02/2018 ??? Depression ??? Diabetes mellitus (HCC) T1DM ??? Diabetic ketoacidosis (CMS/HCC) (HCC) ??? Miscarriage Past Surgical History: Procedure Laterality Date ??? SECTION, CLASSIC 2017 ??? TONSILLECTOMY Bilateral 2002 Family History Problem Relation Age of Onset ??? Anemia Mother ??? Autism Brother Social History Tobacco Use ??? Smoking status: Never ??? Smokeless tobacco: Never Substance and Sexual Activity ??? Drug use: Yes Types: Marijuana ??? Sexual activity: Yes Partners: Male Alcohol Use: Not At Risk ??? Frequency of Alcohol Consumption: 2-4 times a month ??? Average Number of Drinks: 1 or 2 ??? Frequency of Binge Drinking: Never Review of Systems Review of Systems Constitutional: Negative for chills and fever. HENT: Negative for ear pain and sore throat. Eyes: Negative for pain and visual disturbance. Respiratory: Negative for cough and shortness of breath. Cardiovascular: Negative for chest pain and palpitations. Gastrointestinal: Positive for nausea and vomiting. Negative for abdominal pain. Genitourinary: Negative for dysuria and hematuria. Musculoskeletal: Negative for arthralgias and back pain. Skin: Negative for color change and rash. Neurological: Positive for weakness (generalized weakness). Negative for seizures and syncope. All other systems reviewed and are negative. Physical Exam ED Triage Vitals [01/18/22 1821] Temp Pulse Resp BP SpO2 36.9 ??C (98.5 ??F) (!) 151 20 138/89 97 % Temp src Heart Rate Source Patient Position BP Location FiO2 (%) -- -- -- -- -- Height Height Method Weight Weight Method -- -- 68 kg (150 lb) -- Physical Exam Vitals and nursing note reviewed. Constitutional: General: She is not in acute distress. Appearance: She is well-developed. Comments: Pt sleeping without obvious distress. HENT: Head: Normocephalic and atraumatic. Eyes: Conjunctiva/sclera: Conjunctivae normal. Cardiovascular: Rate and Rhythm: Normal rate and regular rhythm. Heart sounds: Normal heart sounds. No murmur heard. Pulmonary: Effort: Pulmonary effort is normal. No respiratory distress. Breath sounds: Normal breath sounds. Abdominal: General: Bowel sounds are normal. There is no distension. Palpations: Abdomen is soft. Tenderness: There is no abdominal tenderness. There is no guarding. Musculoskeletal: Cervical back: Neck supple. Skin: General: Skin is warm and dry. Neurological: Mental Status: She is alert and oriented to person, place, and time. Procedures Labs Reviewed POCT GLUCOSE DEVICE - Abnormal Result Value Glucose, POC 257 (*) No orders to display BP 138/89 Pulse (!) 151 Temp 36.9 ??C (98.5 ??F) Resp 20 Wt 68 kg (150 lb) SpO2 97% BMI28.36 kg/m?? [facility] ED Course as of 01/18/22 5364 Time: 01/18 2231 Comment: Calling receivable manager. By: Kanchan Amos MD Time: 01/18 2231 Comment: Pt has been accepted for admit by Dr. Deniz Guevara. By: Kanchan Amos MD Final diagnoses: None This note is prepared by Chely Nunez, acting as a scribe for Tavo Ochoa MD. I electronically signed this note at 7:26 PM on 01/18/2022. I, Tavo Ochoa MD, have personally performed the services described in the documentation, reviewed and edited the documentation which was dictated to the scribe in my presence, and it accurately records my words and actions. Chely Nunez BS 01/18/221934 Tavo Ochoa MD 01/19/226 * Neeta Davison RN - 01/18/2022 6:15 PM CDT Patient arrives for evaluation of vomiting and weakness that started on Wednesday. Patient states thatshe believes she is in DKA. Patient blood glucose 257. documented in this encounter Miscellaneous Notes * Provider Query - Amanda Lange RN - 01/21/2022 9:14 AM CDT Specify the diagnosis, after study, that best reflects the clinical condition being monitored, evaluated, or treated. Document in the medical record and on the form below. ___ Pseudohyponatremia __X_ Hyponatremia due to hypovolemia ___ Other, specify below ___ Clinically unable to determine Additional Provider Response: Clinical Indicators/Treatments: 26 y o F admitted on 01/18 with dka, hx of dm, depression - pt had nausea/vomiting at home prior to admission, also didn't have much appetite, blood sugars high 200s on presentation with anion gap at 26 Latest Reference Range & Units 01/18/22 20:50 01/19/22 00:46 01/19/22 04:02 01/19/22 08:06 01/19/22 12:31 01/19/22 16:27 01/20/22 05:04 01/20/22 15:34 01/21/22 02:28 Sodium 135 - 145 mmol/L 130 (L) 132 (L) 130 (L) 132 (L) 131 (L) 132 (L) 135 132 (L) 136 - monitor sodium, encourage po intake, zofran prn for nausea Use of terms such as likely, suspected, possible, or probable (associated with a specific diagnosisthat is being evaluated, monitored, or treated as if it exists) are acceptable and can be coded in the inpatient setting when documented at the time of discharge. This documentation will become part of the patient???s medical record. Sincerely, Amanda Lange RN, CDS Clinical Clinical Appeals Specialist [phone] * Plan of Care - Winter Garcia RN - 01/21/2022 3:00 AM CDT Goals: Clinical Goals for the Shift: Pt will remain hemodynamically stable, VSS, pain controlled and free from injuries Summary: Pt remains hemodynamically stable. VSS. Pt denies pain. Pt remains free from injuries. Call light within reach. Pt calling out appropriately. Will report changes in condition to MD. * Plan of Care - Minnie Katz RN - 01/20/2022 3:24 PM CDT Goals: Clinical Goals for the Shift: Patient to remain safe and comfortable, vital signs to remain stable,improved appetite, decreased nausea and vomiting Summary: Patient has remained safe and comfortable at this time. Vital signs have remained stable. Patient appetite has not improved throughout the day, patient has eaten jello and water but continues to refuse meals at the present. Patient femoral central line removed and a midline placed via vascular access at this time. Patient is uncooperative at this time, has been ambulating well, no complaints of nausea or vomiting during the current shift, blood sugars are stable at this time, and breastfeeding educator met with patient. Problem: Health Behavior: Goal: Understanding of discharge needs will improve Outcome: Not Progressing Problem: Lack of Knowledge: Goal: Ability to demonstrate use of device to measure blood glucose level will improve Outcome: Not Progressing Goal: Ability to understand the physical conditions that increase the risk for unstable blood glucose will improve Outcome: Not Progressing Problem: Health Behavior: Goal: Compliance with therapeutic regimen will improve Outcome: Not Progressing Problem: Metabolic: Goal: Ability to maintain appropriate glucose levels will improve Outcome: Not Progressing Problem: Nutritional: Goal: Ability to identify appropriate dietary choices will improve Outcome: Not Progressing Problem: Lack of Knowledge: Goal: Knowledge of disease or condition will improve Outcome: Not Progressing Problem: Fluid Volume: Goal: Ability to achieve a balanced intake and output will improve Outcome: Not Progressing Problem: Physical Regulation: Goal: Ability to maintain clinical measurements within normal limits will improve Outcome: Not Progressing Goal: Will show no signs and symptoms of electrolyte imbalance Outcome: Not Progressing Problem: Lack of Knowledge: Goal: Verbalization of understanding the information provided will improve Outcome: Not Progressing Problem: Physical Regulation: Goal: Complications related to the disease process, condition or treatment will be avoided or minimized Outcome: Not Progressing * Post-Procedure Note - Arlen Hanson RN - 01/20/2022 2:15 PM CDT Single lumen midline inserted in left upper arm without difficulty using sterile technique. Flusheseasily with good blood return. No bleeding or hematoma noted at this time. Right femoral CVC removed post midline insertion. Dressing to area. Pt tolerated procedure well. * Plan of Care - Hanh Miner RN - 01/20/2022 12:55 PM CDT CM Initial Assessment Interview Note Information Obtained From: Patient (01/20/22 125) Admission Source: ED from home Impression: c/o vomiting and weakness Plan Includes: Assessment and Discharge Planning Primary Source of Transportation: self Does the patient need discharge transport arranged?: No (01/20/22 125) Health Insurance Coverage: [employer] and Medicaid [place] Prescription Coverage: yes Pharmacy: [facility] in [place] Primary Care Provider: No, Physician Prior to Admission: Primary Caregiver: Self Who does the patient or legal guardian want to receive education instruction and discharge plans for after care assistance?: Decline Support System: Parent Support system contact info (name, phone, availablity): Karen Jef [phone] Home Care Services: No Durable Medical Equipment: None Living Arrangements: Parent Type of Residence: Apartment Steps in home? : Yes, Inside home Number of steps inside:: 10 steps (01/18/22 2331) SDOH: Transportation: Financial Resource: Housing: Social Connections: Food Insecurity: Alcohol Use: PHQ Screening Potential discharge needs include: Dialysis: Behavioral Health Services: Behavioral Health Services: No (01/20/22 125) Patient expects to be Discharged to: Private residence, (01/20/22 125) Additional Information: Discharge plan discussed with pt. Goal is to return home with her mother maya apartment. Her mom will be her ride. Pt. is independent at home and does not use any ambulatory aides. No known needs at this time. Barrier to discharge is resolution of vomiting and weakness. CM Will continue to follow. Patient's Identified Problem/Goal Problem: Ensure acute medical needs are met and that patient has a safe discharge plan. Goal: Secure a discharge plan that patient/family are agreeable with and ensure patient has continuum of care. Case management will follow for discharge planning and send referrals as needed. Hanh F. Kristofer, RN * Plan of Care - Seng Jean RN - 01/20/2022 4:49 AM CDT Goals: Clinical Goals for the Shift: VSS, stable blood sugar and improved Summary: Resting in bed quietly with no c/o pain, nausea, or vomiting. VSS. Drinking fluids and taking ice chips. Blood sugar stable at this time. NSR to low ST on impregnator electrolytic capacitors when pt is up to toilet. Problem: Health Behavior: Goal: Understanding of discharge needs will improve Outcome: Progressing Problem: Lack of Knowledge: Goal: Ability to demonstrate use of device to measure blood glucose level will improve Outcome: Progressing Goal: Ability to understand the physical conditions that increase the risk for unstable blood glucose will improve Outcome: Progressing Problem: Health Behavior: Goal: Compliance with therapeutic regimen will improve Outcome: Progressing Problem: Metabolic: Goal: Ability to maintain appropriate glucose levels will improve Outcome: Progressing Problem: Nutritional: Goal: Ability to identify appropriate dietary choices will improve Outcome: Progressing Problem: Lack of Knowledge: Goal: Knowledge of disease or condition will improve Outcome: Progressing Problem: Fluid Volume: Goal: Ability to achieve a balanced intake and output will improve Outcome: Progressing Problem: Physical Regulation: Goal: Ability to maintain clinical measurements within normal limits will improve Outcome: Progressing Goal: Will show no signs and symptoms of electrolyte imbalance Outcome: Progressing * Plan of Care - Shamika Cano RN - 01/19/2022 3:02 PM CDT Goals: Clinical Goals for the Shift: Stable VS, stable glucose level, decrease in nausea or vomitting, maintain comfort and safety Summary: Patient remains in the ICU on an insulin drip with the plan to discontinue in with the patient's first oral intake. The patient has remained sleepy throughout the day but is easy to arouse. Her blood sugar has been stable as well as her vitals. The patient's mother was updated via phone. Problem: Health Behavior: Goal: Understanding of discharge needs will improve Outcome: Progressing Problem: Lack of Knowledge: Goal: Ability to demonstrate use of device to measure blood glucose level will improve Outcome: Progressing Goal: Ability to understand the physical conditions that increase the risk for unstable blood glucose will improve Outcome: Progressing Problem: Health Behavior: Goal: Compliance with therapeutic regimen will improve Outcome: Progressing Problem: Metabolic: Goal: Ability to maintain appropriate glucose levels will improve Outcome: Progressing Problem: Nutritional: Goal: Ability to identify appropriate dietary choices will improve Outcome: Progressing Problem: Lack of Knowledge: Goal: Knowledge of disease or condition will improve Outcome: Progressing Problem: Fluid Volume: Goal: Ability to achieve a balanced intake and output will improve Outcome: Progressing Problem: Physical Regulation: Goal: Ability to maintain clinical measurements within normal limits will improve Outcome: Progressing Goal: Will show no signs and symptoms of electrolyte imbalance Outcome: Progressing * Plan of Care - Seng Jean RN - 01/19/2022 6:45 AM CDT Goals: Clinical Goals for the Shift: VSS, stable glucose level, decreased in nausea or vomiting, and remain NPO Summary: Resting at interval. VSS, except tachycardic, increased to 140s when having dry heeving and nauseous episode. Denies any pain. Pt on menses. Voided and able to ambulate to restroom with standby assist. A/Ox4. Problem: Health Behavior: Goal: Understanding of discharge needs will improve Outcome: Progressing Problem: Lack of Knowledge: Goal: Ability to demonstrate use of device to measure blood glucose level will improve Outcome: Progressing Goal: Ability to understand the physical conditions that increase the risk for unstable blood glucose will improve Outcome: Progressing Problem: Health Behavior: Goal: Compliance with therapeutic regimen will improve Outcome: Progressing Problem: Metabolic: Goal: Ability to maintain appropriate glucose levels will improve Outcome: Progressing Problem: Nutritional: Goal: Ability to identify appropriate dietary choices will improve Outcome: Progressing Problem: Lack of Knowledge: Goal: Knowledge of disease or condition will improve Outcome: Progressing Problem: Fluid Volume: Goal: Ability to achieve a balanced intake and output will improve Outcome: Progressing Problem: Physical Regulation: Goal: Ability to maintain clinical measurements within normal limits will improve Outcome: Progressing Goal: Will show no signs and symptoms of electrolyte imbalance Outcome: Progressing * Teleconsu - Deniz Guevara MD - 01/18/2022 11:46 PM CDT Tele-Critical Care Consult Note HPI: (taken from chart) Karina Fuchs is 26 y.o. 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 Ptreports associated symptoms of nausea and generalized weakness. Pt denies fever, chills, and cough.Pt reports symptoms starting on Wednesday01/16/22. Pt's mother states she was sick yesterday, couldn' t go to her daughter's soccer game. H/o DM. Pt states that she believes she is in DKA. Pt blood glucose 257.During exam and assessment, pt appears to be sleeping. No exacerbating or alleviating factors reported. Camera exam: No distress, alert Assessment / Recommendations: Neurologic: Cardiovascular: Pulmonary: GI: Renal: Hematology: ID:consider viral testing if indicated. Low susp for sepsis. Trend lactate - likely dehydration. UA neg Endocrine:dka - dka protocol Musculoskeletal: ICU Best practice: Head of Bed >30deg: Yes DVT prophylaxis: lovenox I have reviewed the patient's available chart history, labs, radiographic images, medications, and other pertinent items in the EMR while monitoring the patient remotely. I will discuss/have discussed my tele-critical care consult recommendations with the hospitalist/ZOLTAN managing this patient. ROS: Review of Systems - History obtained from chart review Past Medical History: Diagnosis Date Cannabinoid hyperemesis syndrome Dehydration 01/02/2018 Depression Diabetes mellitus (HCC) T1DM Diabetic ketoacidosis (CMS/HCC) (HCC) Miscarriage Past Surgical History: Procedure Laterality Date SECTION, CLASSIC 2017 TONSILLECTOMY Bilateral 2003 HOME MEDICATIONS : insulin glargine (insulin glargine) 100 unit/mL (3 mL) pen for injection insulin lispro (HumaLOG) 100 unit/mL injection insulin syringe-needle U-100 0.3 mL 31 gauge x 5/16 syringe OneTouch Verio test strips strip TechLITE Insulin Syr Half Unit 0.3 mL 31 gauge x 5/16 syringe No Known Allergies Family History Problem Relation Age of Onset Anemia Mother Autism Brother Social History Tobacco Use Smoking status: Never Smokeless tobacco: Never Substance and Sexual Activity Drug use: Yes Types: Marijuana Sexual activity: Yes Partners: Male Alcohol Use: Not At Risk Frequency of Alcohol Consumption: 2-4 times a month Average Number of Drinks: 1 or 2 Frequency of Binge Drinking: Never I have personally reviewed the following lab values: Lab Results Component Value Date GLUCOSE 176 (H) 01/18/2022 CALCIUM 9.5 01/18/2022 SODIUM 130 (L) 01/18/2022 POTASSIUM 5.2 (H) 01/18/2022 CO2 9 (L) 01/18/2022 CHLORIDE 95 (L) 01/18/2022 BUNSER 25 01/18/2022 CREATININE 0.56 (L) 01/18/2022 MAGNESIUM 1.8 11/21/2021 WBC 12.4 (H) 01/18/2022 HGB 14.8 01/18/2022 HCT 43.7 01/18/2022 LABPLAT 460 (H) 01/18/2022 Vitals Flowsheet: BP Min: 107/70 Max: 138/89 Temp Av.9 ??C (98.5 ??F) Min: 36.9 ??C (98.5 ??F) Max: 36.9 ??C (98.5 ??F) Pulse Av.3 Min: 112 Max: 151 Resp Av Min: 20 Max: 20 SpO2 Av % Min: 97 % Max: 99 % Weight Av kg (150 lb) Min: 68 kg (150 lb) Max: 68 kg (150 lb) Ins/Outs: Intake/Output Summary (Last 24 hours) at 01/18/2022 2348 Last data filed at 01/18/2022 2249 Gross per 24 hour Intake 999 ml Output -- Net 999 ml Current Infusions: Current Facility-Administered Medications Medication Dose Route Frequency Last Admin dextrose 5% 100 mL/hr intravenous Continuous 100 mL/hr at 01/18/22 233 insulin regular 0-30 Units/hr intravenous Titrated 0 Units/hr at 01/18/22 2338 sodium chloride 0.45% 150 mL/hr intravenous Continuous 150 mL/hr at 01/18/22 2339 Current Medications: Current Facility-Administered Medications: dextrose (D10W) 10% bolus 1-500 mL, 1-500 mL, intravenous, PRN dextrose gel in packet 15 g, 15 g, oral, Q15 Min PRN OR dextrose (D10W) 10% bolus 250 mL, 250 mL, intravenous, Q15 Min PRN dextrose 5% infusion, 100 mL/hr, intravenous, Continuous, Last Rate: 100 mL/hr at 01/18/222338, 100 mL/hr at 01/18/222338 enoxaparin (LOVENOX) syringe 40 mg, 40 mg, subcutaneous, Daily-2100 glucagon injection 1 mg, 1 mg, intramuscular, Q30 Min PRN insulin regular bolus from bag 1-10 Units, 1-10 Units, intravenous, PRN insulin regular in 0.9% sodium chloride (MYXREDLIN) 100 unit/100 mL (1 unit/mL) infusion (premix), 0-30 Units/hr, intravenous, Titrated, Last Rate: 0 mL/hr at 01/18/222337, 0 Units/hr at 01/18/222337 sodium chloride 0.45% infusion, 150 mL/hr, intravenous, Continuous, Last Rate: 150 mL/hr at 01/18/222338, 150 mL/hr at 01/18/222338 sodium chloride 0.9% bolus 2,000 mL, 2,000 mL, intravenous, Once, Last Rate: 1,000 mL/hr at 01/18/222251, 2,000 mL at 01/18/222251 * ED Procedure Note - Kanchan Amos MD - 01/18/2022 9:40 PM CDTAssociated Order(s): Central Line; Critical Care Procedure Central Line Date/Time: 01/18/2022 9:40 PM Performed by: Kanchan Amos MD Authorized by: Kanchan Amos MD [place] Protocol: RN Notified of Procedure: yes Informed consent: Risks, benefits, alternatives discussed and patient/contact center representative/guardian agrees and accepts Patient's stated name/ matches armband: Yes Allergies confirmed: yes Consent form signed, dated, timed; matches correct patient, intended procedure and site: No consentform due to emergent status Indications: Nurse unable to get (tachycardia) Pre-procedure details: Hand hygiene: Hand hygiene performed prior to insertion Sterile barrier technique: All elements of maximal sterile technique followed Skin preparation: 2% chlorhexidine Skin preparation agent: Skin preparation agent completely dried prior to procedure Sedation: Sedation used: no Anesthesia (see MAR for exact dosages): Anesthesia method: Local infiltration Local anesthetic: Lidocaine 1% w/o Procedure details: Location: R femoral Patient position: Flat Procedural supplies: Triple lumen Catheter size: 7.5 Fr Landmarks identified: yes Ultrasound guidance: yes Ultrasound guidance used for( if US guidance yes, must make choice here as well): Pre-procedure marking Number of attempts: 1 Successful placement: yes Post-procedure details: Post-procedure: Dressing applied and line sutured Assessment: Blood return through all ports and free fluid flow Patient tolerance of procedure: Tolerated well, no immediate complications Post Procedure Debrief: All guidewires, needles, sponges or other items are accounted for: yes Responsible constitution party for transporting specimen(s) to lab determined: yes Critical Care Performed by: Kanchan Amos MD Authorized by: Kanchan Amos MD Critical care provider statement: As reflected in the history, physical exam, orders, notes, and/or MDM, I was personally present while the patient was critically ill and provided critical care services for 45 minutes, excluding timeinvolved in separately billable procedures. Critical care was necessary to treat or prevent imminent or life- threatening deterioration of the following condition(s): dehydration, diabetic ketoacidosis and lactic acidosis Critical care was time spent by me providing the following: continuous telemetry and interpretation of bedside monitors, imaging, and arterial/venous lab draws glycemic control active repletion of electrolytes I provided emergent necessary critical care medicine services to this patient. I ordered and reviewed test results and/or imaging studies. I spent time discussing the management of this critically ill patient with consultants and the medical staff. I spent time discussing the management and therapeutic options for this critically ill patient with the patient themselves or with the appropriate designated surrogate decision-maker. I spent time documenting in the medical record. I admitted this patient to a continuous cardiac monitored bed. Kanchan Amos MD 01/18/222141 * ED Re-evaluation Note - Kanchan Amos MD - 01/18/2022 8:09 PM CDT ED Re-evaluation Assumed care of the patient from Dr. Wright. 26 y/o F with nausea and weakness. Symptoms began afew days prior to arrival. January 16. Pt has past medical history of DM and cannabis hyperemesis syndrome. On chart review patient has multiple admissions and ER visits for hyper glycemia and DKA, tachycardia, dehydration. Vitals: 01/18/22 1821 01/18/22199901/18/22201401/18/222029 BP: 138/89 120/78 107/70 137/85 Pulse: (!) 151 119 112 123 Resp: 20 Temp: 36.9 ??C (98.5 ??F) SpO2: 97% 99% 98% 98% Weight: 68 kg (150 lb) PE: Patient with intermittent nausea and gagging. Tachycardic, no respiratory distress, lungs are clear to auscultation bilaterally. No abdominal pain. Results for orders placed or performed during the hospital encounter of 01/18/22 Urinalysis reflex to microscopic and culture Urine Specimen: Urine Result Value Ref Range Color, ur Yellow Yellow Clarity, ur Clear Clear Specific gravity, ur 1.033 (H) 1.003 - 1.030 pH, urine 5.5 Protein, ur ql 1+ (A) Negative Glucose, ur ql 4+ (A) Negative Ketones, ur 4+ (A) Negative Bilirubin, ur Negative Negative Blood, ur 3+ (A) Negative Urobilinogen, ur <2.0 <2.0 mg/dL Nitrite, ur Negative Negative Leukocyte esterase, ur Negative Negative UA reflex comment Reflex to microscopic UA will be performed. CBC with auto differential Result Value Ref Range WBC 12.4 (H) 3.8 - 9.9 K/cumm Hgb 14.8 11.9 - 15.5 g/dL Hct 43.7 35.6 - 45.5 % Plt 460 (H) 150 - 400 K/cumm MPV 9.5 9.1 - 12.3 fL RBC 5.13 3.90 - 5.20 M/cumm MCV 85.2 81.3 - 96.4 fL MCH 28.8 27.1 - 33.3 pg MCHC 33.9 32.3 - 35.7 g/dL RDW CV 15.6 (H) 11.1 - 14.9 % RDW SD 48.8 (H) 35.7 - 48.1 fL NRBC abs 0.00 0.00 - 0.01 K/cumm Comprehensive metabolic panel Result Value Ref Range Sodium 130 (L) 135 - 145 mmol/L Potassium, pl 5.2 (H) 3.3 - 4.9 mmol/L Chloride 95 (L) 97 - 110 mmol/L CO2 9 (L) 22 - 32 mmol/L Anion gap 26 (H) 2 - 15 mmol/L BUN 25 8 - 25 mg/dL Creatinine 0.56 (L) 0.60 - 1.10 mg/dL Glucose 251 (H) 70 - 199 mg/dL Calcium 9.5 8.5 - 10.3 mg/dL Bilirubin, total 0.8 0.1 - 1.2 mg/dL Protein, pl 8.2 6.5 - 8.5 g/dL Albumin 4.9 3.5 - 5.0 g/dL Alk phos 88 40 - 130 Units/L ALT 14 7 - 45 Units/L AST 25 10 - 45 Units/L Sepsis Lactate w/ Reflex Result Value Ref Range Sepsis Lactate 2.1 (H) 0.7 - 2.0 mmol/L hCG, blood, quantitative Result Value Ref Range hCG, quant <5.0 0.0 - 5.0 IUnits/L Lipase Result Value Ref Range Lipase 9 (L) 10 - 99 Units/L Differential, auto Result Value Ref Range Neutrophil abs 10.3 (H) 1.7 - 6.5 K/cumm Imm gran abs 0.1 0.0 - 0.1 K/cumm Lymphocyte abs 1.5 0.8 - 3.3 K/cumm Monocyte abs 0.6 0.2 - 0.8 K/cumm Eosinophil abs 0.0 0.0 - 0.5 K/cumm Basophil abs 0.0 0.0 - 0.1 K/cumm Neutrophil pct 82.5 % Imm gran pct 0.5 % Lymphocyte pct 12.0 % Monocyte pct 4.6 % Eosinophil pct 0.2 % Basophil pct 0.2 % Urinalysis, microscopic only Result Value Ref Range WBC, ur 6-10 (A) 0 - 5 /HPF RBC, ur >50 (A) 0 - 2 /HPF Epithelial cells, squamous, ur 1-5 0 - 5 /HPF Culture Reflex Comment Reflex conditions for urine culture (WBC >10) not met. Sepsis Lactate w/ Reflex Result Value Ref Range Sepsis Lactate 2.1 (H) 0.7 - 2.0 mmol/L eGFR Result Value Ref Range eGFR 130 mL/min/1.73 m2 POCT glucose Result Value Ref Range Glucose, POC 257 (H) 71 - 98 mg/dL POCT glucose Result Value Ref Range Glucose, POC 251 (H) 71 - 98 mg/dL POCT glucose Result Value Ref Range Glucose, POC 176 (H) 71 - 98 mg/dL ED Course as of 01/18/222258 Time: 01/18 2231 Comment: Calling receivable manager. By: Kanchan Amos MD Time: 01/18 2231 Comment: Pt has been accepted for admit by Dr. Deniz Guevara. By: Kanhcan Amos MD 26-year-old female with nausea and vomiting for the past 2 days. Patient has history of DKA and dehydration with multiple admissions in the past. We knee sleeve were unable to obtain IV access after multiple IV attempts with ultrasound. I placed a central venous line to the right femoral vein with u ltrasound guidance. Patient tolerated the procedure well. Labs show DKA with anion gap of 26 and blood sugar of 251. Lactic acid 2.1. Patient has been given dose of insulin and will be started on insulin drip. I have spoken with the receivable manager to his accepted the patient for admission to the ICU. Patient is stable for admission at this time and I have discussed the plan for admission with the patient and her mother. Diagnosis: 1. Nausea and vomiting, unspecified vomiting type 2. Dehydration 3. Diabetic ketoacidosis without coma associated with type 1 diabetes mellitus (CMS/HCC) (HCC) 4. Hyponatremia Disposition: Admit to ICU Kanchan Amos MD 01/18/22 2300 documented in this encounter Plan of Treatment Not on file documented as of this encounter Procedures Procedure Name Priority Date/Time Associated Diagnosis Comments POCT GLUCOSE DEVICE Routine 01/21/2022 1 1:41 AM CDT POCT GLUCOSE DEVICE Routine 01/21/2022 7 :56 AM CDT EGFR Routine 01/21/2022 2:28 AM CDT RENAL FUNCTION PANEL Routine 01/21/2022 2:28 AM CDT POCT GLUCOSE DEVICE Routine 01/21/2022 2 :19 AM CDT POCT GLUCOSE DEVICE Routine 01/21/2022 1 2:03 AM CDT POCT GLUCOSE DEVICE Routine 01/20/2022 8 :23 PM CDT POCT GLUCOSE DEVICE Routine 01/20/2022 4 :04 PM CDT EGFR STAT 01/20/2022 3:34 PM CDT RENAL FUNCTION PANEL STAT 01/20/2022 3:34 PM CDT POCT GLUCOSE DEVICE Routine 01/20/2022 1 1:46 AM CDT POCT GLUCOSE DEVICE Routine 01/20/2022 8 :33 AM CDT EGFR Routine 01/20/2022 5:04 AM CDT DIFFERENTIAL AUTO Routine 01/20/2022 5:0 4 AM CDT CBC WITH AUTO DIFFERENTIAL Routine 01/20/2022 5:04 AM CDT MAGNESIUM Routine 01/20/2022 5:04 AM CDT RENAL FUNCTION PANEL Routine 01/20/2022 5:04 AM CDT POCT GLUCOSE DEVICE Routine 01/20/2022 4 :01 AM CDT POCT GLUCOSE DEVICE Routine 01/19/2022 1 1:45 PM CDT POCT GLUCOSE DEVICE Routine 01/19/2022 7 :36 PM CDT POCT GLUCOSE DEVICE Routine 01/19/2022 7 :20 PM CDT POCT GLUCOSE DEVICE Routine 01/19/2022 6 :26 PM CDT POCT GLUCOSE DEVICE Routine 01/19/2022 5 :30 PM CDT POCT GLUCOSE DEVICE Routine 01/19/2022 4 :29 PM CDT EGFR Timed 01/19/2022 4:27 PM CDT PHOSPHORUS Timed 01/19/2022 4:27 PM CDT MAGNESIUM Timed 01/19/2022 4:27 PM CDT BASIC METABOLIC PANEL Timed 01/19/2022 4:27 PM CDT POCT GLUCOSE DEVICE Routine 01/19/2022 3 :29 PM CDT POCT GLUCOSE DEVICE Routine 01/19/2022 2 :38 PM CDT POCT GLUCOSE DEVICE Routine 01/19/2022 1 :29 PM CDT EGFR Timed 01/19/2022 12:31 PM CDT PHOSPHORUS Timed 01/19/2022 12:31 PM CDT MAGNESIUM Timed 01/19/2022 12:31 PM CDT BASIC METABOLIC PANEL Timed 01/19/2022 12:31 PM CDT POCT GLUCOSE DEVICE Routine 01/19/2022 1 2:28 PM CDT POCT GLUCOSE DEVICE Routine 01/19/2022 1 1:31 AM CDT POCT GLUCOSE DEVICE Routine 01/19/2022 1 0:31 AM CDT POCT GLUCOSE DEVICE Routine 01/19/2022 9 :32 AM CDT POCT GLUCOSE DEVICE Routine 01/19/2022 8 :36 AM CDT EGFR Timed 01/19/2022 8:06 AM CDT PHOSPHORUS Timed 01/19/2022 8:06 AM CDT MAGNESIUM Timed 01/19/2022 8:06 AM CDT BASIC METABOLIC PANEL Timed 01/19/2022 8:06 AM CDT POCT GLUCOSE DEVICE Routine 01/19/2022 7 :06 AM CDT INFECTION PREVENTION MRSA ONLY (STAPHYLOCOCCUS AUREUS) PCR Routine 01/19/2022 6:18 AM CDT POCT GLUCOSE DEVICE Routine 01/19/2022 5 :50 AM CDT POCT GLUCOSE DEVICE Routine 01/19/2022 4 :33 AM CDT EGFR Timed 01/19/2022 4:02 AM CDT PHOSPHORUS Timed 01/19/2022 4:02 AM CDT MAGNESIUM Timed 01/19/2022 4:02 AM CDT BASIC METABOLIC PANEL Timed 01/19/2022 4:02 AM CDT POCT GLUCOSE DEVICE Routine 01/19/2022 3 :27 AM CDT POCT GLUCOSE DEVICE Routine 01/19/2022 2 :13 AM CDT POCT GLUCOSE DEVICE Routine 01/19/2022 1 :52 AM CDT SEPSIS LACTATE WITH REFLEX Timed 01/19/2022 12:46 AM CDT EGFR Timed 01/19/2022 12:46 AM CDT PHOSPHORUS Timed 01/19/2022 12:46 AM CDT MAGNESIUM Timed 01/19/2022 12:46 AM CDT BASIC METABOLIC PANEL Timed 01/19/2022 12:46 AM CDT POCT GLUCOSE DEVICE Routine 01/19/2022 1 2:41 AM CDT POCT GLUCOSE DEVICE Routine 01/18/2022 1 1:37 PM CDT POCT GLUCOSE DEVICE Routine 01/18/2022 1 0:19 PM CDT CRITICAL CARE Routine 01/18/2022 10:02 PM CDT Nausea and vomiting, unspecified vomiting type Diabetic ketoacidosis without coma associated with type 1 diabetes mellitus (CMS/HCC) (HCC) POCT GLUCOSE DEVICE Routine 01/18/2022 9 :48 PM CDT PHOSPHORUS Add-On 01/18/2022 9:48 PM CDT MAGNESIUM Add-On 01/18/2022 9:48 PM CDT SEPSIS LACTATE WITH REFLEX Timed 01/18/2022 9:46 PM CDT AL INSJ NON-TUNNELED CENTRAL VENOUS CATH AGE 5 YR/> Routine 01/18/2022 9:40 PM CDT AL CRITICAL CARE ILL/INJURED PATIENT INIT 30-74 MIN Routine 01/18/2022 9:40 PM CDT SEPSIS LACTATE WITH REFLEX STAT 01/18/2022 9:32 PM CDT URINALYSIS AND REFLEX TO MICROSCOPIC AND CULTURE STAT 01/18/2022 9:08 PM CDT DRUGS OF ABUSE SCREEN, URINE WITHOUT CONFIRMATION STAT 01/18/2022 9:08 PM CDT URINALYSIS, MICROSCOPIC ONLY STAT 01/18/2022 9:08 PM CDT EGFR STAT 01/18/2022 8:50 PM CDT DIFFERENTIAL AUTO STAT 01/18/2022 8:5 0 PM CDT CBC WITH AUTO DIFFERENTIAL STAT 01/18/2022 8:50 PM CDT HCG, BLOOD, QUANTITATIVE STAT 01/18/2022 8:50 PM CDT LIPASE STAT 01/18/2022 8:50 PM CDT COMPREHENSIVE METABOLIC PANEL STAT 01/18/2022 8:50 PM CDT POCT GLUCOSE DEVICE Routine 01/18/2022 6 :15 PM CDT documented in this encounter Results * (ABNORMAL) POCT glucose (01/21/2022 11:41 AM CDT) [facility] Glucose, POC 163(H) 71 - 98 mg/dL TOMY LUQUE) Blood 01/21/2022 11:4 1 AM CDT 01/21/2022 11:41 AM CDT Cally Crespo MD LAB POCT ORDERABLES - DEV ICE Final Result Performing Organization Address [facility] Co de Phone Number TOMY [facility] ([place]) 1 [facility] [place] [address] * POCT glucose (01/21/2022 7:56 AM CDT) Glucose, POC 86 71 - 98 mg/dL [facility] ([place]) Blood 01/21/2022 7:56 AM CDT 01/21/2022 7:56 AM CDT Cally Crespo MD LAB POCT ORDERABLES - DEV ICE Final Result Performing Organization Address [facility]/[place] de Phone Number TOMY SAHU ([place]) 1 [facility] [place] [address] * eGFR (01/21/2022 2:28 AM CDT) eGFR 150 mL/min/1. 73 m2 TOMY [facility] ([place]) Comment: Interpretive Data Reference Interval Normal ?>/= [...] interpretive data was last reviewed 2021. Blood 01/21/2022 2:28 AM CDT 01/21/2022 2:31 AM CDT Augusto Bai MD LAB BLOOD ORDERABLES Final Result [facility] ([place]) 1 [facility] Department [place] [address] * (ABNORMAL) Renal function panel (01/21/2022 2:28 AM CDT) Sodium 136 135 - 145 mmol/L [facility] ([place]) Potassium, pl 2.7(C) 3.3 - 4.9 mmol/L [facility] ([place]) Comment:Critical Result call ed to and read back by bhumika bustos([facility]), DATE: 2022-01-21 04:36:01 BY: neena [email or web address] Chloride 101 97 - 110 mmol/L [facility] ([place]) CO2 27 22 - 32 mmol/L [facility] ([place]) Anion gap 8 2 - 15 mmol/L [facility] ([place]) BUN 8 8 - 25 mg/dL [facility] ([place]) Creatinine 0.31(L) 0.60 - 1.10 mg/dL [facility] ([place]) Glucose 172 70 - 199 mg/dL [facility] ([place]) [...] interpretive data was last revised 2017. Calcium 7.8(L) 8.5 - 10.3 mg/dL [facility] ([place]) Phosphorus, pl 1.9(L) 2.3 - 4.5 mg/dL [facility] ([place]) Albumin 3.5 3.5 - 5.0 g/dL [facility] ([place]) Blood 01/21/2022 2:28 AM CDT 01/21/2022 2:31 AM CDT Augusto Bai MD LAB BLOOD ORDERABLES Final Result Performing Organization Address City/[facility]/ZIP Co de Phone Number [facility] ([place]) 1 [facility] [place] [address] * (ABNORMAL) POCT glucose (01/21/2022 2:19 AM CDT) Glucose, POC 164(H) 71 - 98 mg/dL [facility] ([place]) Blood 01/21/2022 2:19 AM CDT 01/21/2022 2:19 AM CDT Kisha Holland MD LAB POCT ORDERABLES - DEVICE F inal Result Performing Organization Address [facility] Co de Phone Number [facility] ([place]) 1 [facility] [place] [address] * (ABNORMAL) POCT glucose (01/21/2022 12:03 AM CDT) Glucose, POC 161(H) 71 - 98 mg/dL [facility] ([place]) Blood 01/21/2022 12:0 3 AM CDT 01/21/2022 12:03 AM CDT Augusto Bai MD LAB POCT ORDERABLES - YARELY CE Final Result Performing Organization Address City/[facility]/ZIP Co de Phone Number TOMY [facility] ([place]) 1 [facility] [place] [address] * (ABNORMAL) POCT glucose (01/20/2022 8:23 PM CDT) Glucose, POC 216(H) 71 - 98 mg/dL [facility] ([place]) Blood 01/20/2022 8:23 PM CDT 01/20/2022 8:23 PM CDT Augusto Bai MD LAB POCT ORDERABLES - YARELY CE Final Result Performing Organization Address City/[facility]/ZIP Co de Phone Number TOMY [facility] ([place]) 1 [place] [address] * (ABNORMAL) POCT glucose (01/20/2022 4:04 PM CDT) [facility] Glucose, POC 213(H) 71 - 98 mg/dL [facility] ([place]) Blood 01/20/2022 4:04 PM CDT 01/20/2022 4:04 PM CDT Augusto Bai MD LAB POCT ORDERABLES - YARELY CE Final Result Performing Organization Address City/[facility]/ZIP Co de Phone Number TOMY [facility] ([place]) 1 [facility] [place] [address] * eGFR (01/20/2022 3:34 PM CDT) eGFR 149 mL/min/1. 73 m2 [facility] ([place]) Comment: Interpretive Data Reference Interval Normal ?>/= [...] interpretive data was last reviewed 2021. Blood 01/20/2022 3:34 PM CDT 01/20/2022 3:38 PM CDT Augusto Bai MD LAB BLOOD ORDERABLES Final Result [facility] ([place]) 1 [facility] Department of Laboratories [place], [place] [id number] * (ABNORMAL) Renal function panel (01/20/2022 3:34 PM CDT) Sodium 132(L) 135 - 145 mmol/L [facility] ([place]) Potassium, pl 3.5 3.3 - 4.9 mmol/L [facility] ([place]) Chloride 98 97 - 110 mmol/L [facility] ([place]) CO2 22 22 - 32 mmol/L [facility] ([place]) Anion gap 12 2 - 15 mmol/L [facility] ([place]) BUN 7(L) 8 - 25 mg/dL [facility] ([place]) Creatinine 0.32(L) 0.60 - 1.10 mg/dL [facility] ([place]) Glucose 240(H) 70 - 199 mg/dL [facility] ([place]) Comment: Interpretive Data Fasting glucose [...] interpretive data was last revised 2017. Calcium 7.8(L) 8.5 - 10.3 mg/dL [facility] ([place]) Phosphorus, pl 2.2(L) 2.3 - 4.5 mg/dL [facility] ([place]) Albumin 3.6 3.5 - 5.0 g/dL [facility] ([place]) Blood 01/20/2022 3:34 PM CDT 01/20/2022 3:38 PM CDT Augusto Bai MD LAB BLOOD ORDERABLES Final Result [facility] ([place]) 1 [facility] [place] [address] * (ABNORMAL) POCT glucose (01/20/2022 11:46 AM CDT) Glucose, POC 157(H) 71 - 98 mg/dL [facility] ([place]) Blood 01/20/2022 11:4 6 AM CDT 01/20/2022 11:46 AM CDT Augusto Bai MD LAB POCT ORDERABLES - YARELY CE Final Result [facility] ([place]) 1 [facility] [place] [address] * (ABNORMAL) POCT glucose (01/20/2022 8:33 AM CDT) Glucose, POC 186(H) 71 - 98 mg/dL [facility] ([place]) Blood 01/20/2022 8:33 AM CDT 01/20/2022 8:33 AM CDT Augusto Bai MD LAB POCT ORDERABLES - YARELY CE Final Result TOMY [facility] ([place]) 1 [facility] [place] [address] * eGFR (01/20/2022 5:04 AM CDT) eGFR 151 mL/min/1. 73 m2 TOMY [facility] ([place]) Comment: Interpretive Data Reference Interval Normal ?>/= [...] interpretive data was last reviewed 2021. Blood 01/20/2022 5:04 AM CDT 01/20/2022 6:26 AM CDT Augusto Bai MD LAB BLOOD ORDERABLES Final Result TOMY [facility] ([place]) 1 [facility] [place] [address] * Differential, auto (01/20/2022 5:04 AM CDT) Neutrophil abs 4.1 1.7 - 6.5 K/cumm [facility] ([place]) Imm gran abs 0.0 0.0 - 0.1 K/cumm [facility] ([place]) Lymphocyte abs 1.1 0.8 - 3.3 K/cumm [facility] ([place]) Monocyte abs 0.7 0.2 - 0.8 K/cumm [facility] ([place]) Eosinophil abs 0.0 0.0 - 0.5 K/cumm [facility] ([place]) Basophil abs 0.0 0.0 - 0.1 K/cumm [facility] ([place]) Neutrophil pct 68.5 % [facility] ([place]) Comment: Interpretive Data Percent cell count reference ranges are not reported, since discordance with absolute values may lead to misinterpretation of CBC data. Current Interpretive Data was last revised on 2017. Imm gran pct 0.5 % [facility] ([place]) Comment: Interpretive Data Percent cell count reference ranges are not reported, since discordance with absolute values may lead to misinterpretation of CBC data. Current Interpretive Data was last revised on 2017. Lymphocyte pct 18.6 % [facility] ([place]) Comment: Interpretive Data Percent cell count reference ranges are not reported, since discordance with absolute values may lead to misinterpretation of CBC data. Current Interpretive Data was last revised on 2017. Monocyte pct 12.0 % [facility] ([place]) Comment: Interpretive Data Percent cell count reference ranges are not reported, since discordance with absolute values may lead to misinterpretation of CBC data. Current Interpretive Data was last revised on 2017. Eosinophil pct 0.2 % [facility] ([place]) Comment: Interpretive Data Percent cell count reference ranges are not reported, since discordance with absolute values may lead to misinterpretation of CBC data. Current Interpretive Data was last revised on 2017. Basophil pct 0.2 % [facility] ([place]) Comment: Interpretive Data Percent cell count reference ranges are not reported, since discordance with absolute values may lead to misinterpretation of CBC data. Current Interpretive Data was last revised on 2017. Blood 01/20/2022 5:04 AM CDT 01/20/2022 6:26 AM CDT us Augusto Bai MD LAB BLOOD ORDERABLES Final Result TOMY [facility] ([place]) 1 [facility] [place] [address] * Magnesium (01/20/2022 5:04 AM CDT) Magnesium 1.9 1.4 - 2.5 mg/dL [facility] ([place]) Blood 01/20/2022 5:04 AM CDT 01/20/2022 6:26 AM CDT Augusto Bai MD LAB BLOOD ORDERABLES Final Result Performing Organization Address City/[facility] Co de Phone Number TOMY SAHU ([place]) 1 [facility] [place] [address] * (ABNORMAL) CBC with auto differential (01/20/2022 5:04 AM CDT) WBC 6.0 3.8 - 9.9 K/cumm [facility] ([place]) Hgb 11.4(L) 11.9 - 15.5 g/dL [facility] ([place]) Hct 32.1(L) 35.6 - 45.5 % [facility] ([place]) Plt 283 150 - 400 K/cumm [facility] ([place]) MPV 9.4 9.1 - 12.3 fL [facility] ([place]) RBC 3.90 3.90 - 5.20 M/cumm [facility] ([place]) MCV 82.3 81.3 - 96.4 fL [facility] ([place]) MCH 29.2 27.1 - 33.3 pg [facility] ([place]) MCHC 35.5 32.3 - 35.7 g/dL [facility] ([place]) RDW CV 14.8 11.1 - 14.9 % [facility] ([place]) RDW SD 44.3 35.7 - 48.1 fL [facility] ([place]) NRBC abs 0.00 0.00 - 0.01 K/cumm [facility] ([place]) Blood 01/20/2022 5:04 AM CDT 01/20/2022 6:26 AM CDT Augusto Bai MD LAB BLOOD ORDERABLES Final Result [facility] ([place]) 1 [facility] Department [place] [address] * (ABNORMAL) Renal function panel (01/20/2022 5:04 AM CDT) Sodium 135 135 - 145 mmol/L [facility] ([place]) Potassium, pl 3.2(L) 3.3 - 4.9 mmol/L [facility] ([place]) Chloride 99 97 - 110 mmol/L [facility] ([place]) CO2 18(L) 22 - 32 mmol/L [facility] ([place]) Anion gap 17(H) 2 - 15 mmol/L [facility] ([place]) BUN 8 8 - 25 mg/dL [facility] ([place]) Creatinine 0.30(L) 0.60 - 1.10 mg/dL [facility] ([place]) Glucose 232(H) 70 - 199 mg/dL [facility] ([place]) Comment: Interpretive Data Fasting glucose [...] interpretive data was last revised 2017. Calcium 8.2(L) 8.5 - 10.3 mg/dL [facility] ([place]) Phosphorus, pl 1.1(L) 2.3 - 4.5 mg/dL [facility] ([place]) Albumin 3.9 3.5 - 5.0 g/dL [facility] ([place]) Blood 01/20/2022 5:04 AM CDT 01/20/2022 6:26 AM CDT Augusto Bai MD LAB BLOOD ORDERABLES Final Result [facility] ([place]) 1 [facility] [place] [address] * (ABNORMAL) POCT glucose (01/20/2022 4:01 AM CDT) Glucose, POC 176(H) 71 - 98 mg/dL [facility] ([place]) Blood 01/20/2022 4:01 AM CDT 01/20/2022 4:01 AM CDT Augusto Bai MD LAB POCT ORDERABLES - YARELY CE Final Result [facility] ([place]) [address] [place] [address] [place] [address] * (ABNORMAL) POCT glucose (01/19/2022 11:45 PM CDT) Glucose, POC 174(H) 71 - 98 mg/dL [facility] ([place]) Blood 01/19/2022 11:4 5 PM CDT 01/19/2022 11:45 PM CDT Augusto Bai MD LAB POCT ORDERABLES - YARELY CE Final Result TOMY [facility] ([place]) 1 [facility] [place] [address] * (ABNORMAL) POCT glucose (01/19/2022 7:36 PM CDT) Glucose, POC 119(H) 71 - 98 mg/dL [facility] ([place]) Blood 01/19/2022 7:36 PM CDT 01/19/2022 7:36 PM CDT us Augusto Bai MD LAB POCT ORDERABLES - YARELY CE Final Result TOMY [facility] ([place]) 1 [facility] [place] [address] * (ABNORMAL) POCT glucose (01/19/2022 7:20 PM CDT) Glucose, POC 118(H) 71 - 98 mg/dL [facility] ([place]) Blood 01/19/2022 7:20 PM CDT 01/19/2022 7:20 PM CDT Augusto Bai MD LAB POCT ORDERABLES - YARELY CE Final Result [facility] ([place]) 1 [facility] [place] [address] * (ABNORMAL) POCT glucose (01/19/2022 6:26 PM CDT) Glucose, POC 151(H) 71 - 98 mg/dL [facility] ([place]) Blood 01/19/2022 6:26 PM CDT 01/19/2022 6:26 PM CDT Augusto Bai MD LAB POCT ORDERABLES - YARELY CE Final Result TOMY [facility] ([place]) 1 [facility] [place] [address] * (ABNORMAL) POCT glucose (01/19/2022 5:30 PM CDT) Glucose, POC 155(H) 71 - 98 mg/dL [facility] ([place]) Blood 01/19/2022 5:30 PM CDT 01/19/2022 5:30 PM CDT Augusto Bai MD LAB POCT ORDERABLES - YARELY CE Final Result [facility] ([place]) 1 [facility] [place] [address] * (ABNORMAL) POCT glucose (01/19/2022 4:29 PM CDT) Glucose, POC 130(H) 71 - 98 mg/dL [facility] ([place]) Blood 01/19/2022 4:29 PM CDT 01/19/2022 4:29 PM CDT Augusto Bai MD LAB POCT ORDERABLES - YARELY CE Final Result Performing Organization Address City/[facility] Co de Phone Number [facility] ([place]) 1 [facility] [place] [address] * eGFR (01/19/2022 4:27 PM CDT) eGFR 147 mL/min/1. 73 m2 [facility] ([place]) Comment: Interpretive Data Reference Interval Normal ?>/= [...] interpretive data was last reviewed 2021. Blood 01/19/2022 4:27 PM CDT 01/19/2022 4:36 PM CDT us Deniz Guevara MD LAB BLOOD ORDERABLES Fin al Result Performing Organization Address City/[facility]/ZIP Co de Phone Number TOMY [facility] ([place]) 1 [facility] [place] [address] * (ABNORMAL) Phosphorus (01/19/2022 4:27 PM CDT) Phosphorus, pl 2.1(L) 2.3 - 4.5 mg/dL [facility] ([place]) Blood 01/19/2022 4:2 7 PM CDT 01/19/2022 4:36 PM CDT us Deniz Guevara MD LAB BLOOD ORDERABLES Fin al Result Performing Organization Address [facility] Co de Phone Number TOMY SAHU ([place]) 1 [facility] [place] [address] * Magnesium (01/19/2022 4:27 PM CDT) Magnesium 1.8 1.4 - 2.5 mg/dL [facility] ([place]) Blood 01/19/2022 4:27 PM CDT 01/19/2022 4:36 PM CDT us Deniz Guevara MD LAB BLOOD ORDERABLES Fin al Result Performing Organization Address City/[facility]/ZIP Co de Phone Number TOMY [facility]HU ([place]) 1 [facility] [place] [address] * (ABNORMAL) Basic metabolic panel (01/19/2022 4:27 PM CDT) Sodium 132(L) 135 - 145 mmol/L [facility] ([place]) Potassium, pl 3.3 3.3 - 4.9 mmol/L [facility] ([place]) Chloride 102 97 - 110 mmol/L [facility] ([place]) CO2 19(L) 22 - 32 mmol/L [facility] ([place]) Anion gap 12 2 - 15 mmol/L [facility] ([place]) BUN 9 8 - 25 mg/dL [facility] ([place]) Creatinine 0.33(L) 0.60 - 1.10 mg/dL [facility] ([place]) Comment:Icteric sample, test results may be affected. Glucose 140 70 - 199 mg/dL [facility] ([place]) Comment: Interpretive Data Fasting glucose >/= [...] interpretive data was last revised 2017. Calcium 7.5(L) 8.5 - 10.3 mg/dL [facility] ([place]) Blood 01/19/2022 4:27 PM CDT 01/19/2022 4:36 PM CDT us Deniz Guevara MD LAB BLOOD ORDERABLES Fin al Result TOMY [facility] ([place]) 1 [facility] Department of Laboratories [place], [place] [id number] * (ABNORMAL) POCT glucose (01/19/2022 3:29 PM CDT) Glucose, POC 107(H) 71 - 98 mg/dL [facility] ([place]) Blood 01/19/2022 3:29 PM CDT 01/19/2022 3:29 PM CDT Augusto Bai MD LAB POCT ORDERABLES - YARELY CE Final Result Performing Organization Address [facility]/ZIP Co de Phone Number TOMY [facility] ([place]) 1 [facility] [place] [address] * (ABNORMAL) POCT glucose (01/19/2022 2:38 PM CDT) Glucose, POC 120(H) 71 - 98 mg/dL [facility] ([place]) Blood 01/19/2022 2:3 8 PM CDT 01/19/2022 2:38 PM CDT Augusto Bai MD LAB POCT ORDERABLES - YARELY CE Final Result Performing Organization Address [facility] Co de Phone Number [facility] ([place]) 1 [facility] [place] [address] * (ABNORMAL) POCT glucose (01/19/2022 1:29 PM CDT) Glucose, POC 128(H) 71 - 98 mg/dL [facility] ([place]) Blood 01/19/2022 1:29 PM CDT 01/19/2022 1:29 PM CDT Augusto Bai MD LAB POCT ORDERABLES - YARELY CE Final Result Performing Organization Address [facility] Co de Phone Number [facility] ([place]) 1 [facility] [place] [address] * eGFR (01/19/2022 12:31 PM CDT) eGFR 145 mL/min/1. 73 m2 [facility] ([place]) Comment: Interpretive Data Reference Interval Normal ?>/= [...] interpretive data was last reviewed 2021. Blood 01/19/2022 12:3 1 PM CDT 01/19/2022 12:34 PM CDT us Deniz Guevara MD LAB BLOOD ORDERABLES Fin al Result [facility] ([place]) 1 [facility] [place] [address] * (ABNORMAL) Phosphorus (01/19/2022 12:31 PM CDT) Phosphorus, pl 2.1(L) 2.3 - 4.5 mg/dL [facility] ([place]) Blood 01/19/2022 12:3 1 PM CDT 01/19/2022 12:34 PM CDT us Deniz Guevara MD LAB BLOOD ORDERABLES Fin al Result [facility] ([place]) 1 [facility] [place] [address] * Magnesium (01/19/2022 12:31 PM CDT) Magnesium 1.8 1.4 - 2.5 mg/dL [facility] ([place]) Blood 01/19/2022 12:3 1 PM CDT 01/19/2022 12:34 PM CDT Deniz Guevara MD LAB BLOOD ORDERABLES Fin al Result [facility] ([place]) 1 [facility] Department [place] [address] * (ABNORMAL) Basic metabolic panel (01/19/2022 12:31 PM CDT) Sodium 131(L) 135 - 145 mmol/L [facility] ([place] Potassium, pl 3.5 3.3 - 4.9 mmol/L [facility] ([place]) Chloride 102 97 - 110 mmol/L [facility] ([place]) CO2 19(L) 22 - 32 mmol/L [facility] ([place]) Anion gap 9 2 - 15 mmol/L [facility] ([place] BUN 11 8 - 25 mg/dL [facility] ([place] Creatinine 0.35(L) 0.60 - 1.10 mg/dL [facility] ([place]) Glucose 124 70 - 199 mg/dL [facility] ([place]) Comment: Interpretive Data Fasting glucose [...] interpretive data was last revised 2017. Calcium 7.4(L) 8.5 - 10.3 mg/dL [facility] ([place]) Blood 01/19/2022 12:3 1 PM CDT 01/19/2022 12:34 PM CDT Deniz Guevara MD LAB BLOOD ORDERABLES Fin al Result [facility] ([place]) 1 [facility] [place] [address] * (ABNORMAL) POCT glucose (01/19/2022 12:28 PM CDT) Glucose, POC 120(H) 71 - 98 mg/dL TOMY SAHU (VASHTI) Blood 01/19/2022 12:2 8 PM CDT 01/19/2022 12:28 PM CDT Augusto Bai MD LAB POCT ORDERABLES - YARELY CE Final Result Performing Organization Address City/[facility]/ZIP Co de Phone Number TOMY SAHU (ARMADA) 1 [facility] [place] [address] * (ABNORMAL) POCT glucose (01/19/2022 11:31 AM CDT) Glucose, POC 123(H) 71 - 98 mg/dL TOMY LUIS ALBERTO (VASHTI) Blood 01/19/2022 11:3 1 AM CDT 01/19/2022 11:31 AM CDT Augusto Bai MD LAB POCT ORDERABLES - YARELY CE Final Result TOMY SAHU (VASHTI) 1 [facility] [place] [address] * (ABNORMAL) POCT glucose (01/19/2022 10:31 AM CDT) Glucose, POC 113(H) 71 - 98 mg/dL TOMY SAHU (VASHTI) Blood 01/19/2022 10:3 1 AM CDT 01/19/2022 10:31 AM CDT us Augusto Bai MD LAB POCT ORDERABLES - YARELY CE Final Result Performing Organization Address [facility] Co de Phone Number TOMY [facility] (ARMADA) 1 [facility] [place] [address] * (ABNORMAL) POCT glucose (01/19/2022 9:32 AM CDT) Glucose, POC 103(H) 71 - 98 mg/dL [facility] (ARM[place]) Blood 01/19/2022 9:32 AM CDT 01/19/2022 9:32 AM CDT us Augusto Bai MD LAB POCT ORDERABLES - YARELY CE Final Result Performing Organization Address [facility] Co de Phone Number TOMY [facility] (ARMADA) 1 [facility] [place] [address] * (ABNORMAL) POCT glucose (01/19/2022 8:36 AM CDT) Glucose, POC 107(H) 71 - 98 mg/dL [facility] ([place]) Blood 01/19/2022 8:36 AM CDT 01/19/2022 8:36 AM CDT us Augusto Bai MD LAB POCT ORDERABLES - YARELY CE Final Result Performing Organization Address [facility] Co de Phone Number TOMY [facility] (ARMADA) 1 [facility] [place] [address] * eGFR (01/19/2022 8:06 AM CDT) eGFR 144 mL/min/1. 73 m2 [facility] ([place]) Comment: Interpretive Data Reference Interval Normal ?>/= [...] interpretive data was last reviewed 2021. Blood 01/19/2022 8:06 AM CDT 01/19/2022 8:09 AM CDT us Deniz Guevara MD LAB BLOOD ORDERABLES Fin al Result TOMY SAHU (ARMADA) 1 [facility] Department [place] [address] * (ABNORMAL) Phosphorus (01/19/2022 8:06 AM CDT) Phosphorus, pl 0.7(C) 2.3 - 4.5 mg/dL TOMY SAHU (ARMADA) Comment:Critical Result call ed to and read back by Gabe Gan/icu, DATE: 2022-01-19 08:35:00 BY: Juan Pablo Wilson Blood 01/19/2022 8:06 AM CDT 01/19/2022 8:09 AM CDT us Deniz Guevara MD LAB BLOOD ORDERABLES Ruddy leila Result - Final TOMY SAHU (ARMADA) 1 [facility] Department [place] [address] * Magnesium (01/19/2022 8:06 AM CDT) Magnesium 1.8 1.4 - 2.5 mg/dL [facility] ([place]HT[place]) Blood 01/19/2022 8:06 AM CDT 01/19/2022 8:09 AM CDT Deniz Guevara MD LAB BLOOD ORDERABLES Fin al Result [facility] (VASHTI) 1 [facility] Department [place] [address] * (ABNORMAL) Basic metabolic panel (01/19/2022 8:06 AM CDT) Sodium 132(L) 135 - 145 mmol/L [facility] ([place]) Potassium, pl 3.7 3.3 - 4.9 mmol/L [facility] ([place]) Chloride 104 97 - 110 mmol/L [facility] ([place]) CO2 16(L) 22 - 32 mmol/L [facility] ([place]) Anion gap 12 2 - 15 mmol/L [facility] ([place]) BUN 14 8 - 25 mg/dL [facility] ([place]) Creatinine 0.36(L) 0.60 - 1.10 mg/dL [facility] ([place]) Glucose 122 70 - 199 mg/dL [facility] ([place]) Comment: Interpretive Data Fasting glucose [...] interpretive data was last revised 2017. Calcium 7.9(L) 8.5 - 10.3 mg/dL [facility] ([place]) Blood 01/19/2022 8:06 AM CDT 01/19/2022 8:09 AM CDT Deniz Guevara MD LAB BLOOD ORDERABLES Fin al Result TOMY SAHU (ARMADA) [address] [place] [id number] * (ABNORMAL) POCT glucose (01/19/2022 7:06 AM CDT) [facility] Glucose, POC 112(H) 71 - 98 mg/dL [facility] ([place]) Blood 01/19/2022 7:06 AM CDT 01/19/2022 7:06 AM CDT Augusto Bai MD LAB POCT ORDERABLES - YARELY CE Final Result Performing Organization Address [facility] Co de Phone Number [facility] (ARMADA) [address] [place] [id number] * Infection Prevention MRSA Only (Staphylococcus aureus) PCR Nasal (01/19/2022 6:18 AM CDT) [facility] PCR Scrn, Methicillin resistant Staphylococcus aureus (MRSA) Not Detected Not Detected [facility] ([place]) Comment: Testing performed using Nucleic Acid Amplification with the [employer]ep[employer]es[employer] Xpert MRSA Assay. This assay detects DNA from SCCmec strains of Staphylococcus aureus using Real- Time PCR and has been cleared by the FDA. Performance characteristics have been verified by the [facility]. Nasal 01/19/2022 6:18 AM CDT 01/19/2022 6:24 AM CDT Deniz Guevara MD LAB MICROBIOLOGY - GENER AL ORDERABLES Final Result Performing Organization Address City/[facility]/ZIP Co de Phone Number TOMY [facility] (ARMADA) [address] [place] [address] * (ABNORMAL) POCT glucose (01/19/2022 5:50 AM CDT) Glucose, POC 125(H) 71 - 98 mg/dL [facility] ([place]) Blood 01/19/2022 5:50 AM CDT 01/19/2022 5:50 AM CDT us Deniz Guevara MD LAB POCT ORDERABLES - DE VICE Final Result Performing Organization Address City/[facility]/ZIP Co de Phone Number [facility] ([place]) 1 [facility] [place] [address] * (ABNORMAL) POCT glucose (01/19/2022 4:33 AM CDT) Pathologist [facility] Glucose, POC 183(H) 71 - 98 mg/dL [facility] ([place]) Blood 01/19/2022 4:33 AM CDT 01/19/2022 4:33 AM CDT us Deniz Guevara MD LAB POCT ORDERABLES - DE VICE Final Result Performing Organization Address City/[facility]/ZIP Co de Phone Number [facility] ([place]) 1 [facility] [place] [address] * eGFR (01/19/2022 4:02 AM CDT) Pathologist [facility] eGFR 133 mL/min/1. 73 m2 [facility] ([place]) Comment: Interpretive Data Reference Interval Normal ?>/= [...] interpretive data was last reviewed 2021. Blood 01/19/2022 4:02 AM CDT 01/19/2022 4:08 AM CDT us Deniz Guevara MD LAB BLOOD ORDERABLES Fin al Result Performing Organization Address City/[facility]/ZIP Co de Phone Number TOMY SAHU (ARMADA) 1 [facility] [employer] [place] [address] * (ABNORMAL) Phosphorus (01/19/2022 4:02 AM CDT) Phosphorus, pl 0.8(C) 2.3 - 4.5 mg/dL TOMY SAHU (VASHTI) Comment:Critical Result call ed to and read back by nadia mancuso(icu), DATE: 2022-01-19 05:35:29 BY: neena ledesma Blood 01/19/2022 4:02 AM CDT 01/19/2022 4:08 AM CDT us Deniz Guevara MD LAB BLOOD ORDERABLES Fin al Result TOMY SAHU (VASHTI) 1 [facility] [place] [address] * Magnesium (01/19/2022 4:02 AM CDT) Magnesium 1.9 1.4 - 2.5 mg/dL TOMY SAHU (VASHTI) Blood 01/19/2022 4:02 AM CDT 01/19/2022 4:08 AM CDT us Deniz Guevara MD LAB BLOOD ORDERABLES Fin al Result Performing Organization Address City/[facility]/ZIP Co de Phone Number TOMY SAHU (VASHTI) 1 [facility] [place] [address] * (ABNORMAL) Basic metabolic panel (01/19/2022 4:02 AM CDT) Sodium 130(L) 135 - 145 mmol/L [facility] ([place]) Potassium, pl 3.8 3.3 - 4.9 mmol/L [facility] ([place]) Chloride 103 97 - 110 mmol/L [facility] ([place]) CO2 12(L) 22 - 32 mmol/L [facility] ([place]) Anion gap 15 2 - 15 mmol/L [facility] ([place]) BUN 19 8 - 25 mg/dL [facility] ([place]) Creatinine 0.51(L) 0.60 - 1.10 mg/dL [facility] ([place]) Glucose 175 70 - 199 mg/dL [facility] ([place]HTI) Comment: Interpretive Data Fasting glucose [...] interpretive data was last revised 2017. Calcium 7.9(L) 8.5 - 10.3 mg/dL [facility] ([place]I) Blood 01/19/2022 4:02 AM CDT 01/19/2022 4:08 AM CDT us Deniz Guevara MD LAB BLOOD ORDERABLES Fin al Result Performing Organization Address City/[facility]/ZIP Co de Phone Number TOMY SAHU (VASHTI) 1 [facility] [place] [address] * (ABNORMAL) POCT glucose (01/19/2022 3:27 AM CDT) Glucose, POC 188(H) 71 - 98 mg/dL [facility] ([place] Blood 01/19/2022 3:27 AM CDT 01/19/2022 3:27 AM CDT us Deniz Guevara MD LAB POCT ORDERABLES - DE VICE Final Result TOMY SAHU (ARMADA) 1 [facility] [place] [address] * (ABNORMAL) POCT glucose (01/19/2022 2:13 AM CDT) Glucose, POC 227(H) 71 - 98 mg/dL [facility] ([place]) Blood 01/19/2022 2:13 AM CDT 01/19/2022 2:13 AM CDT us Deniz Guevara MD LAB POCT ORDERABLES - DE VICE Final Result [facility]Y [facility] ([place]) 1 [facility] [place] [address] * (ABNORMAL) POCT glucose (01/19/2022 1:52 AM CDT) Glucose, POC 188(H) 71 - 98 mg/dL [facility] ([place]) Blood 01/19/2022 1:52 AM CDT 01/19/2022 1:52 AM CDT us Deniz Guevara MD LAB POCT ORDERABLES - DE VICE Final Result TOMY SAHU (ARMADA) 1 [facility] [place] [address] * eGFR (01/19/2022 12:46 AM CDT) eGFR 135 mL/min/1. 73 m2 TOMY SAHU (ARMADA) Comment: Interpretive Data Reference Interval Normal ?>/= [...] interpretive data was last reviewed 2021. Blood 01/19/2022 12:4 6 AM CDT 01/19/2022 1:02 AM CDT us Deniz Guevara MD LAB BLOOD ORDERABLES Fin al Result TOMY SAHU (ARMADA) 1 [facility] Department [place] [address] * (ABNORMAL) Phosphorus (01/19/2022 12:46 AM CDT) Pathologist [facility] Phosphorus, pl 1.4(L) 2.3 - 4.5 mg/dL TOMY SAHU (ARMADA) Blood 01/19/2022 12:4 6 AM CDT 01/19/2022 1:02 AM CDT us Deniz Guevara MD LAB BLOOD ORDERABLES Fin al Result Performing Organization Address City/[facility]/ZIP Co de Phone Number TOMY SAHU (VASHTI) 1 [facility] [place] [address] * Magnesium (01/19/2022 12:46 AM CDT) Pathologist [facility] Magnesium 1.8 1.4 - 2.5 mg/dL [facility] (VASHTI) Blood 01/19/2022 12:4 6 AM CDT 01/19/2022 1:02 AM CDT Deniz Guevara MD LAB BLOOD ORDERABLES Fin al Result Performing Organization Address [facility] Co de Phone Number TOMY SAHU (VASHTI) 1 [facility] [place] [address] * (ABNORMAL) Basic metabolic panel (01/19/2022 12:46 AM CDT) Sodium 132(L) 135 - 145 mmol/L [facility] ([place]) Potassium, pl 4.4 3.3 - 4.9 mmol/L [facility] ([place]) Chloride 103 97 - 110 mmol/L [facility] ([place]) CO2 9(L) 22 - 32 mmol/L [facility] Anion gap 19(H) 2 - 15 mmol/L [facility] ([place]) BUN 21 8 - 25 mg/dL [facility] ([place]) Creatinine 0.48(L) 0.60 - 1.10 mg/dL [facility] ([place]) Glucose 191 70 - 199 mg/dL [facility] ([place]HTI) Comment: Interpretive Data Fasting glucose [...] interpretive data was last revised 2017. Calcium 7.7(L) 8.5 - 10.3 mg/dL TOMY SAHU (VASHTI) Blood 01/19/2022 12:4 6 AM CDT 01/19/2022 1:02 AM CDT us Deniz Guevara MD LAB BLOOD ORDERABLES Fin al Result TOMY SAHU (ARMADA) 1 [facility] [place] [address] * Sepsis Lactate w/ Reflex (01/19/2022 12:46 AM CDT) Sepsis Lactate 1.2 0.7 - 2.0 mmol/L TOMY SAHU (ARMADA) Blood 01/19/2022 12:4 6 AM CDT 01/19/2022 1:02 AM CDT us Tavo Ochoa MD LAB BLOOD ORDERABLES Fi nal Result Performing Organization Address [facility]/ZIP Co de Phone Number TOMY SAHU (ARMADA) 1 [facility] [place] [address] * (ABNORMAL) POCT glucose (01/19/2022 12:41 AM CDT) Glucose, POC 172(H) 71 - 98 mg/dL TOMY SAHU (ARMADA) Blood 01/19/2022 12:4 1 AM CDT 01/19/2022 12:41 AM CDT us Deniz Guevara MD LAB POCT ORDERABLES - DE VICE Final Result Performing Organization Address City/[facility]/ZIP Co de Phone Number TOMY SAHU (ARMADA) 1 [facility] [place] [address] * (ABNORMAL) POCT glucose (01/18/2022 11:37 PM CDT) Glucose, POC 126(H) 71 - 98 mg/dL TOMY SAHU (VASHTI) Blood 01/18/2022 11:3 7 PM CDT 01/18/2022 11:37 PM CDT us Deniz Guevara MD LAB POCT ORDERABLES - DE VICE Final Result Performing Organization Address [facility] Co de Phone Number TOMY SAHU (ARMADA) 1 [facility] [place] [address] * (ABNORMAL) POCT glucose (01/18/2022 10:19 PM CDT) Glucose, POC 176(H) 71 - 98 mg/dL TOMY SAHU (VASHTI) Blood 01/18/2022 10:1 9 PM CDT 01/18/2022 10:19 PM CDT us Tavo Ochoa MD LAB POCT ORDERABLES - D EVICE Final Result Performing Organization Address [facility] Co de Phone Number TOMY SAHU (ARMADA) 1 [facility] [place] [address] * Critical Care (01/18/2022 10:02 PM CDT) Narrative Deniz Guevara MD - 01/18/2022 10:02 PM CDT Deniz Guevara MD ? 01/21/2022 ??3:30 PM Critical Care Performed by: Deniz Guevara MD Authorized by: Deniz Guevara MD CRITICAL CARE: ??Team: ??EICU ??Shift: ??PM ??Level of Billing: ??Critical Care ??My time spent with this patient was 50 minutes: Critical Provider Statement: I have seen and examined the patient on this day of service. I have reviewed and confirmed the history, physical exam, laboratory and radiologic data as documented in the signed ICU note. I have reviewed and discussed my treatment plan with the ICU team and other medical/group segment consultant staff, making frequent assessments and decisions regarding this patient's complex medical care. Critical Care time was exclusive of time spent performing separately billed procedures, treating other patients, and teaching. This time was in addition to and separate from critical care provided by other practitioners in my group on this day of service. Critical Care was necessary to treat or prevent imminent or life-threatening deterioration of the following conditions: ? Diabetic Ketoacidosis ??This time was spent by me doing the following: ? Serial laboratory checks and Resuscitation with fluids ?? Glycemic control ?? I spent time reviewing and interpreting data from bedside monitors, laboratory results, and imaging, I spent time discussing the management of this critically ill patient with consultants and the medical staff and I spent time documenting in the medical record us Deniz Guevara MD IN CLINIC/BEDSIDE ORDERA BLES Edited Result - Final * Phosphorus (01/18/2022 9:48 PM CDT) Phosphorus, pl 2.3 2.3 - 4.5 mg/dL TOMY SAHU (ARMADA) Blood 01/18/2022 9:48 PM CDT 01/18/2022 11:35 PM CDT Kanchan Amos MD LAB BLOOD ORDERABLES Final Resul t Performing Organization Address City/[facility]/ZIP Co de Phone Number [facility] ([place] 1 [facility] [place] [address] * Magnesium (01/18/2022 9:48 PM CDT) Magnesium 2.3 1.4 - 2.5 mg/dL TOMY SAHU (ARMADA) Blood 01/18/2022 9:48 PM CDT 01/18/2022 11:35 PM CDT Kanchan Amos MD LAB BLOOD ORDERABLES Final Resul t Performing Organization Address City/[facility]/ZIP Co de Phone Number TOMY [facility] ([place]) 1 [facility] [place] [address] * (ABNORMAL) POCT glucose (01/18/2022 9:48 PM CDT) Glucose, POC 251(H) 71 - 98 mg/dL TOMY SAHU (ARMADA) Blood 01/18/2022 9:48 PM CDT 01/18/2022 9:48 PM CDT Tavo Ochoa MD LAB POCT ORDERABLES - D EVICE Final Result Performing Organization Address [facility]/ZIP Co de Phone Number TOMY SAHU (ARMADA) 1 [facility] [place] [address] * (ABNORMAL) Sepsis Lactate w/ Reflex (01/18/2022 9:46 PM CDT) Sepsis Lactate 2.1(H) 0.7 - 2.0 mmol/L TOMY LUIS ALBERTO ([place]ADA) Blood 01/18/2022 9:46 PM CDT 01/18/2022 9:48 PM CDT Tavo Ochoa MD LAB BLOOD ORDERABLES Fi nal Result Performing Organization Address [facility]/ZIP Co de Phone Number TOMY SAHU (ARMADA) 1 [facility] [place] [address] * AL INSJ NON-TUNNELED CENTRAL VENOUS CATH AGE 6 YR/> (01/18/2022 9:40 PM CDT) Narrative Kanchan Amos MD - 01/18/2022 9:40 PM CDT Kanchan Amos MD ? 01/18/2022 ??9:42 PM Central Line Date/Time: 01/18/2022 9:40 PM Performed by: Kanchan Amos MD Authorized by: Kanchan Amos MD Clio Protocol: ??RN Notified of Procedure: yes ?Informed consent: ??Risks, benefits, alternatives discussed and patient/contact center representative/guardian agrees and accepts ??Patient's stated name/ matches armband: ??Yes ??Allergies confirmed: yes ?Consent form signed, dated, timed; matches correct patient, intended procedure and site: ??No consent form due to emergent status Indications: ??Nurse unable to get (tachycardia) Pre-procedure details: ??Hand hygiene: Hand hygiene performed prior to insertion ?Sterile barrier technique: All elements of maximal sterile technique followed ?Skin preparation: ??2% chlorhexidine ??Skin preparation agent: Skin preparation agent completely dried prior to procedure ?? Sedation: ??Sedation used: no ?? Anesthesia (see MAR for exact dosages): ??Anesthesia method: ??Local infiltration ??Local anesthetic: ??Lidocaine 1% w/o Procedure details: ??Location: ??R femoral ??Patient position: ??Flat ??Procedural supplies: ??Triple lumen ??Catheter size: ??7.5 Fr ??Landmarks identified: yes ?Ultrasound guidance: yes ?Ultrasound guidance used for( if US guidance yes, must make choice here as well): ??Pre-procedure marking ??Number of attempts: ??1 ??Successful placement: yes ?? Post-procedure details: ??Post-procedure: ??Dressing applied and line sutured ??Assessment: ??Blood return through all ports and free fluid flow ??Patient tolerance of procedure: ??Tolerated well, no immediate complications Post Procedure Debrief: ??All guidewires, needles, sponges or other items are accounted for: yes ?Responsible constitution party for transporting specimen(s) to lab determined: yes ?? us Kanchan Amos MD IN CLINIC/BEDSIDE ORDERABLES Fin al Result * AL CRITICAL CARE ILL/INJURED PATIENT INIT 30-74 MIN (01/18/2022 9:40 PM CDT) Narrative Kanchan Amos MD - 01/18/2022 9:40 PM CDT Kanchan Amos MD ? 01/18/2022 ??9:42 PM Critical Care Performed by: Kanchan Amos MD Authorized by: Kanchan Amos MD Critical care provider statement: As reflected in the history, physical exam, orders, notes, and/or MDM, I was personally present while the patient was critically ill and provided critical care services for 45 minutes, excluding time involved in separately billable procedures. ??Critical care was necessary to treat or prevent imminent or life-threatening deterioration of the following condition(s): ?? dehydration, diabetic ketoacidosis and lactic acidosis ??Critical care was time spent by me providing the following: ? continuous telemetry and interpretation of bedside monitors, imaging, and arterial/venous lab draws ?? glycemic control ?? active repletion of electrolytes ?? I provided emergent necessary critical care medicine services to this patient. I ordered and reviewed test results and/or imaging studies. I spent time discussing the management of this critically ill patient with consultants and the medical staff. I spent time discussing the management and therapeutic options for this critically ill patient with the patient themselves or with the appropriate designated surrogate decision-maker. I spent time documenting in the medical record. I admitted this patient to a continuous cardiac monitored bed. Kanchan Amos MD IN CLINIC/BEDSIDE ORDERABLES Fin al Result * (ABNORMAL) Sepsis Lactate w/ Reflex (01/18/2022 9:32 PM CDT) Sepsis Lactate 2.1(H) 0.7 - 2.0 mmol/L TOMY SAHU (VASHTI) Blood 01/18/2022 9:32 PM CDT 01/18/2022 9:36 PM CDT Tavo Ochoa MD LAB BLOOD ORDERABLES Fi nal Result TOMY SAHU (VASHTI) 1 [facility] Department [place] [address] * (ABNORMAL) Urinalysis, microscopic only (01/18/2022 9:08 PM CDT) WBC, ur 6-10(A) 0 - 5 /HPF TOMY SAHU (VASHTI) RBC, ur >50(A) 0 - 2 /HPF TOMY SAHU (V[place]HTI) Epithelial cells, squamous, ur 1-5 0 - 5 /HPF TOMY SAHU ([place]HTI) Culture Reflex Comment Reflex conditions for urine culture (WBC >10) not met. TOMY SAHU ([place]HTI) Urine 01/18/2022 9:08 PM CDT 01/18/2022 9:11 PM CDT Tavo Ochoa MD LAB URINE ORDERABLES Fi nal Result TOMY SAHU ([place]HTI) 1 [facility] Department [place] [address] * Drugs of Abuse Screen, Urine without Confirmation (01/18/2022 9:08 PM CDT) Amphetamine, ur Not Detected CutOff 500ng/mL [facility] ([place]) Comment: Interpretive Data - Amphetamines: ??Samples containing greater than 500 ng/mL d-methamphetamine ??or other cross-reacting amphetamine compounds are reported as positive. ??Amphetamine immunoassays are subject to significant false positive rates due to cross-reactivity of non-amphetamine drugs. Current Interpretive Data was last reviewed 2018. Barbiturates, ur Not Detected CutOff 200ng/mL [facility] ([place]) Comment: Interpretive Data - Barbiturates: ??Samples containing greater than 200 ng/mL secobarbital or other cross-reacting barbiturate compounds are reported as positive. ??False positive and false negative results are possible. Current Interpretive Data was last reviewed 2018. Benzodiazepines, ur Not Detected CutOff 100ng/mL [facility] ([place]) Comment: Interpretive Data - Benzodiazepines: ??Samples containing greater than 100 ng/mL nordiazepam or other cross-reacting compounds are reported as positive. ?? False positive and false negative results are possible. ?? Current Interpretive Data was last reviewed 2018. Cannabinoids, ur Not Detected CutOff 50 ng/mL [facility] ([place]) Comment: Interpretive Data - Cannabinoids: ??Samples containing greater than 50 ng/mL delta-9 THC -COOH or other cross-reacting compounds are reported as positive. ??False positive and false negative results are possible. ?? Current Interpretive Data was last reviewed 2018. Cocaine, ur Not Detected CutOff 150ng/mL [facility] ([place]) Comment: Interpretive Data - Cocaine: ??Samples containing greater than 150 ng/mL benzoylecgonine or other cross-reacting compounds are reported as positive. False positive and false negative results are possible. Current Interpretive Data was last reviewed 2018. Fentanyl, Ur Not Detected Cutoff 1 ng/mL [facility] ([place]) Comment: Interpretive Data - Fentanyls: ??Samples containing greater than 1 ng/mL fentanyl or other cross-reacting fentanyl compounds are reported as detected. ??False positive and false negative results are possible. Current Interpretive Data was last reviewed 2018. Methadone, ur Not Detected CutOff 300ng/mL TOMY SAHU (VASHTI) Comment: Interpretive Data - Methadone: ??Samples containing greater than 300 ng/mL d,l-methadone or other cross-reacting compounds are reported as positive. ??False positive and false negative results are possible. Current Interpretive Data was last reviewed 2018. Opiates, ur Not Detected CutOff 300ng/mL TOMY SAHU (VASHTI) Comment: Interpretive Data - Opiates: ??Samples containing greater than 300 ng/mL morphine or other cross-reacting compounds are reported as positive. ??False positive and false negative results are possible. Current Interpretive Data was last reviewed 2018. Oxycodone, ur Not Detected CutOff 100ng/mL TOMY SAHU (VASHTI) Comment: Interpretive Data - Oxycodone: ??Samples containing greater than 100 ng/mL oxycodone or other cross-reacting compounds are reported as positive. ??False positive and false negative results are possible. ?? Current Interpretive Data was last reviewed 2018. Phencyclidine, ur Not Detected CutOff 25 ng/mL TOMY SAHU (VASHTI) Comment: Interpretive Data - Phencyclidine: ??Samples containing greater than 25 ng/mL phencyclidine or other cross-reacting compounds are reported as positive. ??False positive and false negative results are possible. ?? Current Interpretive Data was last reviewed 2018. Urine Creatinine 52 mg/dL ASHLEY SAHU (VASHTI) Comment: Interpretive Data Urine Creatinine: < 10 mg/dL is extremely dilute = or > 10 but < 20 mg/dL is dilute = or > 20 mg/dL is normal Current Interpretive Data was last revised on 2017. Urine 01/18/2022 9:08 PM CDT 01/19/2022 3:02 AM CDT Narrative TOMY SAHU (VASHTI) - 01/19/2022 4:12 AM CDT Drug of Abuse screening is performed by immunoassay for medical purposes only. ??This is not to be used for Pain Management purposes. us Tavo Ochoa MD LAB URINE ORDERABLES Fi nal Result TOMY SAHU (VASHTI) 1 [facility] [place] [address] * (ABNORMAL) Urinalysis reflex to microscopic and culture Urine (01/18/2022 9:08 PM CDT) Color, ur Yellow Yellow [facility] (VASHTI) Clarity, ur Clear Clear [facility] (VASHTI) Specific gravity, ur 1.033(H) 1.003 - 1.030 [facility] ([place]) pH, urine 5.5 [facility] ([place]) Protein, ur ql 1+(A) Negative [facility] ([place]) Glucose, ur ql 4+(A) Negative [facility] ([place]) Ketones, ur 4+(A) Negative [facility] (VASHTI) Bilirubin, ur Negative Negative [facility] ([place]) Blood, ur 3+(A) Negative [facility] ([place]) Urobilinogen, ur <2.0 <2.0 mg/dL [facility] ([place]) Nitrite, ur Negative Negative [facility] (VASHTI) Leukocyte esterase, ur Negative Negative [facility] ([place]) UA reflex comment Reflex to microscopic UA will be performed. [facility] ([place]HT[place]) Urine 01/18/2022 9:08 PM CDT 01/18/2022 9:11 PM CDT Narrative [facility] ([place]HT[place]) - 01/18/2022 9:17 PM CDT ?? Urine pH is affected by diet, medications, systemic acid-base disturbances, and renal tubular function. ??pH may affect urinary stone formation. ??For example, urine pH below 6.0 may help reduce the tendency for calcium phosphate stones and pH greater than 6.0 may reduce the tendency for uric acid stone formation. Source: [employer]. Last revised 05-13-2017 Tavo Ochoa MD LAB MICROBIOLOGY - GENE RAL ORDERABLES Final Result TOMY SAHU (VASHTI) 1 [facility] Department [place] [address] * eGFR (01/18/2022 8:50 PM CDT) Pathologist [facility] eGFR 130 mL/min/1. 73 m2 TOMY SAHU (ARMADA) Comment: Interpretive Data Reference Interval Normal ?>/= [...] interpretive data was last reviewed 2021. Blood 01/18/2022 8:50 PM CDT 01/18/2022 9:00 PM CDT us Tavo Ochoa MD LAB BLOOD ORDERABLES Fi nal Result TOMY SAHU (ARMADA) 1 [facility] Department [place] [address] * (ABNORMAL) Differential, auto (01/18/2022 8:50 PM CDT) Pathologist [facility] Neutrophil abs 10.3(H) 1.7 - 6.5 K/cumm [facility] ([place]HT[place]) Imm gran abs 0.1 0.0 - 0.1 K/cumm [facility] ([place]) Lymphocyte abs 1.5 0.8 - 3.3 K/cumm [facility] ([place]) Monocyte abs 0.6 0.2 - 0.8 K/cumm [facility] ([place]) Eosinophil abs 0.0 0.0 - 0.5 K/cumm [facility] ([place]) Basophil abs 0.0 0.0 - 0.1 K/cumm [facility] ([place]HTI) Neutrophil pct 82.5 % [facility] (VASHTI) Comment: Interpretive [...] was last revised on 2017. Lymphocyte pct 12.0 % [facility] (VASHTI) Comment: Interpretive Data Percent cell count reference ranges are not reported, since discordance with absolute values may lead to misinterpretation of CBC data. Current Interpretive Data was last revised on 2017. Monocyte pct 4.6 % [facility] (VASHTI) Comment: Interpretive Data Percent cell count reference ranges are not reported, since discordance with absolute values may lead to misinterpretation of CBC data. Current Interpretive Data was last revised on 2017. Eosinophil pct 0.2 % [facility] (VASHTI) Comment: Interpretive Data Percent cell count reference ranges are not reported, since discordance with absolute values may lead to misinterpretation of CBC data. Current Interpretive Data was last revised on 2017. Basophil pct 0.2 % [facility] (VASHTI) Comment: Interpretive Data Percent cell count reference ranges are not reported, since discordance with absolute values may lead to misinterpretation of CBC data. Current Interpretive Data was last revised on 2017. Blood 01/18/2022 8:50 PM CDT 01/18/2022 9:00 PM CDT Tavo Ochoa MD LAB BLOOD ORDERABLES Fi nal Result TOMY SAHU (ARMADA) 1 [facility] [place] [address] * (ABNORMAL) Lipase (01/18/2022 8:50 PM CDT) Lipase 9(L) 10 - 99 Units/L [facility] (ARMADA) Blood 01/18/2022 8:50 PM CDT 01/18/2022 9:00 PM CDT Tavo Ochoa MD LAB BLOOD ORDERABLES Fi nal Result Performing Organization Address [facility] de Phone Number TOMY SAHU (ARMADA) 1 [place] [address] * hCG, blood, quantitative (01/18/2022 8:50 PM CDT) hCG, quant <5.0 0.0 - 5.0 IUnits/L TOMY [facility] (ARMADA) Comment: Interpretive Data Non- Female premenopausal: < [...] Data was last revised on 2021. Blood 01/18/2022 8:50 PM CDT 01/18/2022 9:00 PM CDT us Tavo Ochoa MD LAB BLOOD ORDERABLES Ed ited Result - Final TOMY SAHU (VASHTI) 1 [facility] Department [place] [address] * (ABNORMAL) Comprehensive metabolic panel (01/18/2022 8:50 PM CDT) Sodium 130(L) 135 - 145 mmol/L [facility] ([place]ASHTI) Potassium, pl 5.2(H) 3.3 - 4.9 mmol/L [facility] ([place]ASHTI) Comment:Moderately Hemolyzed Specimen. Hemolysis present. Results may be affected. Chloride 95(L) 97 - 110 mmol/L [facility] ([place]ASHTI) CO2 9(L) 22 - 32 mmol/L [facility] ([place]HT[place]) Anion gap 26(H) 2 - 15 mmol/L [facility] ([place]HT[place]) BUN 25 8 - 25 mg/dL [facility] ([place]) Creatinine 0.56(L) 0.60 - 1.10 mg/dL [facility] ([place]HTI) Glucose 251(H) 70 - 199 mg/dL [facility] ([place]ASHTI) [...] interpretive data was last revised 2017. Calcium 9.5 8.5 - 10.3 mg/dL [facility] ([place]HTI) Bilirubin, total 0.8 0.1 - 1.2 mg/dL [facility] ([place]) Protein, pl 8.2 6.5 - 8.5 g/dL [facility] ([place]) Albumin 4.9 3.5 - 5.0 g/dL [facility] ([place]) Alk phos 88 40 - 130 Units/L [facility] ([place]) ALT 14 7 - 45 Units/L [facility] ([place]HTI) Comment: Hemolysis present. ??Results may be affected. Moderately Hemolyzed Specimen AST 25 10 - 45 Units/L [facility] ([place]ASHTI) Comment: Hemolysis present. ??Results may be affected. Moderately Hemolyzed Specimen Blood 01/18/2022 8:50 PM CDT 01/18/2022 9:00 PM CDT us Tavo Ochoa MD LAB BLOOD ORDERABLES Fi nal Result [facility] (VASHTI) 1 [facility] Department [place] [address] * (ABNORMAL) CBC with auto differential (01/18/2022 8:50 PM CDT) WBC 12.4(H) 3.8 - 9.9 K/cumm [facility] ([place]HT[place]) Hgb 14.8 11.9 - 15.5 g/dL [facility] ([place]) Hct 43.7 35.6 - 45.5 % [facility] ([place]HTI) Plt 460(H) 150 - 400 K/cumm [facility] ([place]HT[place]) MPV 9.5 9.1 - 12.3 fL [facility] ([place]) RBC 5.13 3.90 - 5.20 M/cumm [facility] ([place]) MCV 85.2 81.3 - 96.4 fL [facility] ([place]) MCH 28.8 27.1 - 33.3 pg [facility] ([place]) MCHC 33.9 32.3 - 35.7 g/dL [facility] ([place]) RDW CV 15.6(H) 11.1 - 14.9 % [facility] ([place]) RDW SD 48.8(H) 35.7 - 48.1 fL [facility] ([place]HTI) NRBC abs 0.00 0.00 - 0.01 K/cumm [facility] ([place]ASHTI) Blood 01/18/2022 8:50 PM CDT 01/18/2022 9:00 PM CDT us Tavo Ochoa MD LAB BLOOD ORDERABLES Fi nal Result TOMY SAHU ARMADA) 1 [facility] Department [place] [address] * (ABNORMAL) POCT glucose (01/18/2022 6:15 PM CDT) [facility] Glucose, POC 257(H) 71 - 98 mg/dL ASHLEYTOSHA SAHU (ARMADA) Blood 01/18/2022 6:15 PM CDT 01/18/2022 6:15 PM CDT us Notinfile Unknown LAB POCT ORDERABLES - DEVICE F inal Result Performing Organization Address City/[facility]/ZIP Co de Phone Number TOMY SAHU (ARMADA) 1 [facility] [place] [address] documented in this encounter Visit Diagnoses Diagnosis Type 1 diabetes mellitus with ketoacidosis without coma (HCC)- Primary Nausea and vomiting, unspecified vomiting type Dehydration Diabetic ketoacidosis without coma associated with type 1 diabetes mellitus (CMS/HCC) (HCC) Hyponatremia Hyposmolality and/or hyponatremia Nausea and vomiting, unspecified vomiting type Uncontrolled type 1 diabetes mellitus with hyperglycemia (CMS/HCC) (HCC) Marijuana abuse Nondependent cannabis abuse, unspecified Hypokalemia Hypopotassemia Hyponatremia Hyposmolality and/or hyponatremia Hypophosphatemia Disorders of phosphorus metabolism documented in this encounter Administered Medications Inactive Administered Medications - up to 3 most recent administrations Medication Order MAR Action Action Date Dose Rate Site acetaminophen (TYLENOL) tablet 650 mg 650 mg, oral, Every 6 hours PRN, 1st line for pain, Starting on Wed01/21/22 at 0248 bisacodyl EC (DULCOLAX EC) tablet 10 mg 10 mg, oral, Daily PRN, constipation, If no results 24 hours after milk of magnesia, Starting on Wed01/21/22 at 0248, Do not crush, chew, cut, dissolve, open or otherwise manipulate tablet/capsule. dextrose (D10W) 10% bolus 250 mL 250 mL, intravenous, at 1,000 mL/hr, Administer over 15 Minutes, Every 15 min PRN, blood glucose less than 70 mg/dL and UNABLE to swallow/take PO glucose/juice., Starting on Wed01/19/22 at 1759, After treatment for hypoglycemia, recheck BG followed by treatment every 15 minutes until the BG is greater than 100 mg/dL. Then check BG 1 hour post treatment. If BG is less than 100 mg/dL, repeat Q15 minute BG checks and treatment. Call MD for each episode of hypoglycemia., Indications: hypoglycemic disorderIndications:hypoglyce lakes[place]ia disorder dextrose 5% and sodium chloride 0.9% infusion (premix) 75 mL/hr, intravenous, Continuous, Starting on Wed01/19/22 at 1830 New Bag 01/20/2022 8:29 AM CDT 75 mL/hr 75 mL/hr Rate/Dose Verify 01/20/2022 5:00 AM CDT 75 mL/hr 75 mL/h r Rate/Dose Verify 01/19/2022 8:32 PM CDT 75 mL/hr 75 mL/h r dextrose 5% infusion 100 mL/hr, intravenous, Continuous, Starting on Wed01/18/22 at 2205, Start when blood glucose less than 250 mg/dL and decrease rate of previous IV fluid infusion order. Notify MD when blood glucose less than 250 mg/dL and adjusting IV fluids. New Bag 01/19/2022 9:38 AM CDT 100 mL/hr 100 mL/hr New Bag 01/19/2022 7:26 AM CDT 100 mL/hr 100 mL/hr New Bag 01/18/2022 11:39 PM CDT 100 mL/hr 100 mL/hr dextrose gel in packet 15 g 15 g, oral, Every 15 min PRN, low blood sugar, blood glucose less than 70 mg/dL, Starting on Wed01/19/22 at 1759, If patient is alert and able to [...] for each episode of hypoglycemia., Indications: hypoglycemic disorderIndications:hypoglyce lakeshia disorder glucagon injection 1 mg 1 mg, intramuscular, Every 30 min PRN, low blood sugar, blood glucose less than 70 mg/dL AND no IV access AND unable to take PO glucose/juice., Starting on Wed01/19/22 at 1759, After Glucagon is administered, position patient on [...] mL SWFI. Use immediately following reconstitution. insulin glargine (LANTUS, BASAGLAR, SEMGLEE) 100 unit/mL (3 mL) pen injection 20 Units 20 Units, subcutaneous, Nightly, First dose on Wed01/19/22 at 1830, Attach new pen needle required for each administration. Each new pen needle must be primed with 2 units prior to administration. Do not mix with other insulins. Given 01/20/2022 8:26 PM CDT 20 Units Left Upper Abdomen Given 01/19/2022 7:21 PM CDT 20 Units Ri ght Upper Arm insulin lispro (HumaLOG, ADMELOG) 100 unit/mL pen injection 0-5 Units 0-5 Units, subcutaneous, Every 4 hours scheduled, First dose on Wed01/19/22 at 2000, Blood glucose mg/dL: 149 or less: No [...] 2 units prior to administration., Indications: Diabetes MellitusIndications:Diabetes Mellitus Given 01/20/2022 8:25 PM CDT 2 Units Left Upper Arm Given 01/20/2022 4:04 PM CDT 2 Units Le ft Lower Abdomen Given 01/20/2022 11:47 AM CDT 1 Units R ight Upper Arm insulin lispro (HumaLOG, ADMELOG) 100 unit/mL pen injection 0-5 Units 0-5 Units, subcutaneous, 4 times daily (with meals and nightly), First dose (after last modification) on Wed01/21/22 at 0800, Blood glucose mg/dL: 149 or less: No [...] administration., Indications: Diabetes MellitusIndications:Diab etes Mellitus Given 01/21/2022 12:41 PM CDT 1 Units Right Upper Arm insulin regular (HumuLIN R, NovoLIN R) 100 unit/mL injection 8 Units 8 Units, intravenous, Once, On Wed01/18/22 at 1928, For 1 dose Given 01/18/2022 9:48 PM CDT 8 Units insulin regular in 0.9% sodium chloride (MYXREDLIN) 100 unit/100 mL (1 unit/mL) infusion (premix) 0-30 Units/hr (0-30 mL/hr), 1 units/mL, intravenous, Titrated, Starting on Wed01/18/22 at 2205, Until Wed01/19/22 at 1756, Indications: Hyperglycemia, Desired Range (mg/dL): 130-180 general patients, Multiplier: 0.01, NON-WEIGHT BASED DOSING Adjust rate per GlucoStabilizer program for dka order When new IV tubing is used, completely prime the tubing. Once primed, waste an additional 20 ml of insulin infusion using the IV pump prior to connecting to patient., RoutineIndications:Hyper glycemia Rate/Dose Change 01/19/2022 6:26 PM CDT 2.7 Units/hr 2.7 mL/hr Rate/Dose Change 01/19/2022 5:30 PM CDT 1.9 Units/hr 1.9 m L/hr Rate/Dose Change 01/19/2022 4:30 PM CDT 0.7 Units/hr 0.7 m L/hr magnesium hydroxide (MILK OF MAGNESIA) 80 mg/mL (33.3 mg/mL as elemental magnesium) oral suspension 30 mL 30 mL, oral, Daily PRN, constipation, Starting on Wed01/21/22 at 0248 metoclopramide (REGLAN) injection 10 mg 10 mg, intramuscular, Once, On Wed01/18/22 at 2033, For 1 dose Given 01/18/2022 8:35 PM CDT 10 mg Right Deltoid mineral oil (FLEET MINERAL OIL) enema 133 mL 133 mL (1 enema), rectal, Daily PRN, constipation, if no results 24 hours after bisacodyl, Starting on Wed01/21/22 at 0248, Indications: constipationIndications: constipation ondansetron (ZOFRAN) injection 4 mg 4 mg, intravenous, Administer over 2 Minutes, Every 4 hours PRN, nausea, vomiting, Starting on Wed01/21/22 at 0248 pantoprazole (PROTONIX) 4 mg/mL injection 40 mg 40 mg, intravenous, Administer over 2 Minutes, Every 24 hours scheduled, First dose on Wed01/18/22 at 1928, For 1 dose, For IV Push administration for adults- 40 mg vial: add 10 mL of sodium chloride 0.9% to achieve a final concentration of 4 mg/mL, Indications: Treatment of Non-Bleeding Gastric DisorderIndications:Vielka tment of Non-Bleeding Gastric Disorder Given 01/18/2022 9:52 PM CDT 40 mg potassium chloride 40 mEq/520 mL in sodium chloride 0.9% (premix) 40 mEq 40 mEq, intravenous, at 130 mL/hr, Administer over 4 Hours, Once, On Wed01/21/22 at 0515, For 1 dose, Indications: hypokalemiaIndications:h ypokalemia New Bag 01/21/2022 6:05 AM CDT 40 mEq 130 mL/hr potassium chloride ER (KLOR-CON) extended release tablet 20 mEq 20 mEq, oral, Once, On Wed01/21/22 at 0515, For 1 dose, Do not crush, chew, cut, dissolve, open or otherwise manipulate tablet/capsule. Given 01/21/2022 6:05 AM CDT 20 mEq potassium phosphates 30 mmol in sodium chloride 0.9% 250 mL IVPB 30 mmol, intravenous, at 43.3 mL/hr, Administer over 6 Hours, Once, On Wed01/20/22 at 0800, For 1 dose, For CENTRAL line administration Potassium phosphate 30 mmol ivpb run X 1 dose per pharmacy electrolyte replacement protocol for potassium = 3.2 and phosphorous +=1.1 on 01/20/22 Central Line ONLY. Each 1 mmol of phosphorus ordered contains ~1.5 mEq of potassium. New 01/20/2022 8:34 AM CDT 30 mmol 43.3 mL/hr potassium phosphates 30 mmol in sodium chloride 0.9% 500 mL IVPB 30 mmol, intravenous, at 85 mL/hr, Administer over 6 Hours, Once, On Wed01/21/22 at 1000, For 1 dose, For PERIPHERAL line administration X 1 dose per pharmacy electrolyte replacement protocol for K+=2.7, phosphorus=1.9 on 01/21/22 Each 1 mmol of phosphorus ordered contains ~1.5 mEq of potassium. New 01/21/2022 10:26 AM CDT 30 mmol 85 mL/hr sodium chloride 0.45% infusion 150 mL/hr, intravenous, Continuous, Starting on Wed01/18/22 at 2205, Decrease rate to 50 mL/hr when blood glucose less than 250 mg/dL. Rate/Dose Change 01/19/2022 7:26 AM CDT 50 mL/hr 50 mL/hr New 01/19/2022 6:39 AM CDT 150 mL/hr 150 mL/hr New 01/18/2022 11:39 PM CDT 150 mL/hr 150 mL/hr sodium chloride 0.9% bolus 1,000 mL 1,000 mL, intravenous, at 1,000 mL/hr, Administer over 1 Hours, Once, On Wed01/18/22 at 1928, For 1 dose New 01/18/2022 9:39 PM CDT 1,000 mL 1000 mL/hr sodium chloride 0.9% bolus 2,000 mL 2,000 mL, intravenous, at 1,000 mL/hr, Administer over 2 Hours, Once, On Wed01/18/22 at 2205, For 1 dose New 01/18/2022 10:52 PM CDT 2,000 mL 1000 mL/hr sodium chloride 0.9% flush 5-10 mL 5-10 mL, intra-catheter, Every 8 hours scheduled, First dose on Wed01/20/22 at 1500, Flush volume based on line type, size, and protocol. Given 01/21/2022 6:05 AM CDT 10 mL Given 01/20/2022 8:26 PM CDT 10 mL Given 01/20/2022 4:01 PM CDT 10 mL sodium chloride 0.9% flush 5-10 mL 5-10 mL, intra-catheter, As needed, line care, with each use, Starting on Wed01/20/22 at 1420, Flush volume based on line type, size, and protocol. sodium phosphate - potassium phosphate (K-PHOS NEUTRAL) tablet 500 mg 500 mg, oral, Once, On Wed01/20/22 at 1615, For 1 dose, Each tablet contains elemental phosphorus 250 mg (8 mmol), potassium 45 mg (1.1 mEq), and sodium 298 mg (13 mEq). Given 01/20/2022 4:01 PM CDT 500 mg sodium phosphate 30 mmol in sodium chloride 0.9% 250 mL IVPB 30 mmol, intravenous, at 43.3 mL/hr, Administer over 6 Hours, Once, On Wed01/19/22 at 0900, For 1 dose New Bag 01/19/2022 9:33 AM CDT 30 mmol 43.3 mL/hr documented in this encounter Active and Recently Administered Medications Times are shown in CDT. Scheduled Medication Order 01/19/2022 01/20/2022 01/21/2022 enoxaparin (LOVENOX) syringe 40 mg 40 mg, subcutaneous, Daily (for enoxaparin), First dose on Wed01/18/22 at 2308, Indications: Deep Vein Thrombosis Prevention 0006 (Not Given - Provider: Seng Jean RN - Reason: Patient/family refused)2014 (Not Given - Provider: Seng Jean RN - Reason: Patient/family refused) 2023 (Not Given - Provider: Winter Garcia RN - Reason: Patient/family refused) insulin glargine (LANTUS, BASAGLAR, SEMGLEE) 100 unit/mL (3 mL) pen injection 20 Units 20 Units, subcutaneous, Nightly, First dose on Wed01/19/22 at 1830, Attach new pen needle required for each administration. Each new pen needle must be primed with 2 units prior to administration. Do not mix with other insulins. 1920 (Given - Provider: Pascual Perry RN) 2025 (Given - Provider: Winter Garcia, MARY) insulin lispro (HumaLOG, ADMELOG) 100 unit/mL pen injection 0-5 Units (CANCELED) 0-5 Units, subcutaneous, Every 4 hours scheduled, First dose on Wed01/19/22 at 2000, Blood glucose mg/dL: 149 or less: No [...] units prior to administration., Indications: Diabetes Mellitus 1920 (Not Given - Provider: Pascual Perry RN - Reason: Order parameters not met)2348 (Given - Provider: Seng Jean RN) 0403 (Given - Provider: Seng Jean RN)0837 (Given - Provider: Minnie Katz, MARY)1147 (Given - Provider: Minnie Katz, MARY)1604 (Given - Provider: Minnie Katz, MARY)2024 (Given - Provider: Winter Garcia, MARY) 0005 (Not Given - Provider: Winter Garcia, MARY - Reason: Order Discontinued) insulin lispro (HumaLOG, ADMELOG) 100 unit/mL pen injection 0-5 Units 0-5 Units, subcutaneous, 4 times daily (with meals and nightly), First dose (after last modification) on Wed01/21/22 at 0800, Blood glucose mg/dL: 149 or less: No [...] units prior to administration., Indications: Diabetes Mellitus 0800 (Not Given - Provider: Cammie Bower RN - Reason: Order parameters not met)1241 (Given - Provider: Cammie Bower RN) potassium chloride 40 mEq/520 mL in sodium chloride 0.9% (premix) 40 mEq (COMPLETED) 40 mEq, intravenous, at 130 mL/hr, Administer over 4 Hours, Once, On Wed01/21/22 at 0515, For 1 dose, Indications: hypokalemia 0605 (New Bag - Provider: Winter Garcia RN) potassium chloride ER (KLOR-CON) extended release tablet 20 mEq (COMPLETED) 20 mEq, oral, Once, On Wed01/21/22 at 0515, For 1 dose, Do not crush, chew, cut, dissolve, open or otherwise manipulate tablet/capsule. 0605 (Given - Provider: Winter Garcia RN) potassium phosphates 30 mmol in sodium chloride 0.9% 250 mL IVPB (COMPLETED) 30 mmol, intravenous, at 43.3 mL/hr, Administer over 6 Hours, Once, On Wed01/20/22 at 0800, For 1 dose, For CENTRAL line administration Potassium phosphate 30 mmol ivpb run X 1 dose per pharmacy electrolyte replacement protocol for potassium = 3.2 and phosphorous +=1.1 on 01/20/22 Central Line ONLY. Each 1 mmol of phosphorus ordered contains ~1.5 mEq of potassium. 0834 (New Bag - Provider: Minnie Katz RN) potassium phosphates 30 mmol in sodium chloride 0.9% 500 mL IVPB 30 mmol, intravenous, at 85 mL/hr, Administer over 6 Hours, Once, On Wed01/21/22 at 1000, For 1 dose, For PERIPHERAL line administration X 1 dose per pharmacy electrolyte replacement protocol for K+=2.7, phosphorus=1.9 on 01/21/22 Each 1 mmol of phosphorus ordered contains ~1.5 mEq of potassium. 1026 (New Bag - Provider: Cammie Bower RN) sodium chloride 0.9% flush 5-10 mL 5-10 mL, intra-catheter, Every 8 hours scheduled, First dose on Wed01/20/22 at 1500, Flush volume based on line type, size, and protocol. 1601 (Given - Provider: Minnie Katz RN)2026 (Given - Provider: Winter Garcia, MARY) 0605 (Given - Provider: Winter Garcia RN)1501 (Not Given - Provider: Cammie Bower RN - Reason: IV Infusing) sodium phosphate - potassium phosphate (K-PHOS NEUTRAL) tablet 500 mg (COMPLETED) 500 mg, oral, Once, On Wed01/20/22 at 1615, For 1 dose, Each tablet contains elemental phosphorus 250 mg (8 mmol), potassium 45 mg (1.1 mEq), and sodium 298 mg (13 mEq). 1601 (Given - Provider: Minnie Katz RN) sodium phosphate 30 mmol in sodium chloride 0.9% 250 mL IVPB (COMPLETED) 30 mmol, intravenous, at 43.3 mL/hr, Administer over 6 Hours, Once, On Wed01/19/22 at 0900, For 1 dose 0933 (New Bag - Provider: Shamika Cano RN) Continuous Medication Order 01/19/2022 01/20/2022 01/21/2022 dextrose 5% and sodium chloride 0.9% infusion (premix) (CANCELED) 75 mL/hr, intravenous, Continuous, Starting on Wed01/19/22 at 1830 1828 (New Bag - Provider: Shamika Cano RN)203 (Rate/Dose Verify - Provider: Seng Jean RN) 0500 (Rate/Dose Verify - Provider: Seng Jean, MARY)0829 (New Bag - Provider: Minnie Katz RN)1605 (Stopped - Provider: Minnie Katz RN) dextrose 5% infusion (CANCELED) 100 mL/hr, intravenous, Continuous, Starting on Wed01/18/22 at 2205, Start when blood glucose less than 250 mg/dL and decrease rate of previous IV fluid infusion order. Notify MD when blood glucose less than 250 mg/dL and adjusting IV fluids. 0726 (New Bag - Provider: Shamika Cano RN)0938 (New Bag - Provider: Shamika Cano RN)1815 (Stopped - Provider: Shamika Cano RN) insulin regular in 0.9% sodium chloride (MYXREDLIN) 100 unit/100 mL (1 unit/mL) infusion (premix) (CANCELED) 0-30 Units/hr (0-30 mL/hr), 1 units/mL, intravenous, Titrated, Starting on 01/18/22 at 2205, Until 01/19/22 at 1756, Indications: Hyperglycemia, Desired Range (mg/dL): 130-180 general patients, Multiplier: 0.01, NON-WEIGHT BASED DOSING Adjust rate per GlucoStabilizer program for dka order When new IV tubing is used, completely prime the tubing. Once primed, waste an additional 20 ml of insulin infusion using the IV pump prior to connecting to patient., Routine 0213 (Rate/Dose Change - Provider: Seng Jean RN)0221 (Rate/Dose Change - Provider: Seng Jean RN)0328 (Rate/Dose Change - Provider: Seng Jean RN)0434 (Rate/Dose Change - Provider: Seng Jean RN)0552 (Rate/Dose Change - Provider: Seng Jean RN)0726 (Rate/Dose Change - Provider: Shamika Cano RN)0837 (Rate/Dose Change - Provider: Shamika Cano RN)0932 (Rate/Dose Change - Provider: Shamika Cano RN)1032 (Rate/Dose Change - Provider: Shamika Cano, MARY)1132 (Rate/Dose Change - Provider: Shamika Cano, MARY)1229 (Rate/Dose Change - Provider: Shamika Cano, MARY)1330 (Rate/Dose Change - Provider: Shamika Cano, MARY)1439 (Rate/Dose Change - Provider: Shamika Cano, MARY)1530 (Rate/Dose Change - Provider: Shamika Cano, MARY)1630 (Rate/Dose Change - Provider: Shamika Cano, MARY)1730 (Rate/Dose Change - Provider: Shamika Cano, MARY)1826 (Rate/Dose Change - Provider: Shamika Cano, MARY)2015 (Stopped - Provider: Seng Jean, RN) sodium chloride 0.45% infusion (CANCELED) 150 mL/hr, intravenous, Continuous, Starting on Wed01/18/22 at 2205, Decrease rate to 50 mL/hr when blood glucose less than 250 mg/dL. 0639 (New Bag - Provider: Seng Jean, MARY)0726 (Rate/Dose Change - Provider: Shamika Cano RN)1815 (Stopped - Provider: Shamika Cano RN) PRN Medication Order 01/19/2022 01/20/2022 01/21/2022 acetaminophen (TYLENOL) tablet 650 mg 650 mg, oral, Every 6 hours PRN, 1st line for pain, Starting on Wed01/21/22 at 0248 bisacodyl EC (DULCOLAX EC) tablet 10 mg 10 mg, oral, Daily PRN, constipation, If no results 24 hours after milk of magnesia, Starting on Wed01/21/22 at 0248, Do not crush, chew, cut, dissolve, open or otherwise manipulate tablet/capsule. dextrose (D10W) 10% bolus 250 mL(Linked Group 1) 250 mL, intravenous, at 1,000 mL/hr, Administer over 15 Minutes, Every 15 min PRN, blood glucose less than 70 mg/dL and UNABLE to swallow/take PO glucose/juice., Starting on Wed01/19/22 at 1759, After treatment for hypoglycemia, recheck BG followed [...] glucose less than 70 mg/dL, Starting on Wed01/19/22 at 1759, If patient is alert and able to [...] unable to take PO glucose/juice., Starting on Wed01/19/22 at 1759, After Glucagon is administered, position patient on [...] 1 mL SWFI. Use immediately following reconstitution. magnesium hydroxide (MILK OF MAGNESIA) 80 mg/mL (33.3 mg/mL as elemental magnesium) oral suspension 30 mL 30 mL, oral, Daily PRN, constipation, Starting on Wed01/21/22 at 0248 mineral oil (FLEET MINERAL OIL) enema 133 mL 133 mL (1 enema), rectal, Daily PRN, constipation, if no results 24 hours after bisacodyl, Starting on Wed01/21/22 at 0248, Indications: constipation ondansetron (ZOFRAN) injection 4 mg 4 mg, intravenous, Administer over 2 Minutes, Every 4 hours PRN, nausea, vomiting, Starting on Wed01/21/22 at 0248 sodium chloride 0.9% flush 5-10 mL 5-10 mL, intra-catheter, As needed, line care, with each use, Starting on Wed01/20/22 at 1420, Flush volume based on line type, size, and protocol. Linked Groups Order Group 1: dextrose gel in packet 15 gJump to med 15 g, oral, Every 15 min PRN, low blood sugar, blood glucose less than 70 mg/dL, Starting on Wed01/19/22 at 1759, If patient is alert and able to [...] UNABLE to swallow/take PO glucose/juice., Starting on Wed01/19/22 at 1759, After treatment for hypoglycemia, recheck BG followed [...] Count Last Ordered Date First Ordered Date acetaminophen (TYLENOL) tablet 650 mg 1 bisacodyl EC (DULCOLAX EC) tablet 10 mg 1 0 01/21/2022 magnesium hydroxide (MILK OF MAGNESIA) 80 mg/mL (33.3 mg/mL as elemental magnesium) oral suspension 30 mL 1 01/21/2022 mineral oil (FLEET MINERAL O IL) enema 133 mL 1 01/21/2022 ondansetron (ZOFRAN) injection 4 mg 1 01/21 sodium chloride 0.9% flush 5-10 mL 1 2021 dextrose (D10W) 10% bolus 250 mL 2 01/20/20 22 01/18/2022 dextrose gel in packet 15 g 2 01/19/2022 01/18/2022 glucagon injection 1 mg 2 01/19/202201/01 potassium, sodium phosphates (PHOS-NAK) 280-160-250 mg packet 2 packet 1 01/19/2022 dextrose (D10W) 10% bolus 1-500 mL 1 2021 enoxaparin (LOVENOX) syringe 40 mg 1 2021 insulin regular bolus from bag 1-10 Units 1 01/18/2022 metoclopramide (REGLAN) injection 10 mg 1 0 01/18/2022 ondansetron ODT (ZOFRAN-ODT) disintegrating tablet 4 mg 1 01/18/2022 Lab Orders Without Results Count Last Ordered D ate First Ordered Date POCT GLUCOSE DEVICE 8 01/21/2022 01/20/20 Consult Count Last Ordered Date First Orde red Date IP CONSULT TO NUTRITION SERVICES 1 01/19/20 22 Transfer Count Last Ordered Date First Orde red Date TRANSFER PATIENT 1 01/20/2022 ADT Patient Update Count Last Ordered Date Firs t Ordered Date ED IP DECISION TO ADMIT 1 01/18/2022 documented in this encounter Care Teams Waste Management Engineer Relationship Specialty Start Date End Date No, Physician PCP - General 11/21/21 02/01/22 Warren Phillips MD Consulting Physician Gastroenterology 02/16/19 Miscellaneous, Not In File 07/23/21 Nicole Lopez DO [address] [place] [address] [address] [place] [address] Resident Family Medicine 11/22/21 Naomi Sanches MD [address] [place] [address] [address] [place] [address] Referring Physician General Surgery 11/22/21 documented as of this encounter
--- OUTSIDE RECORDS SUMMARY | 2024-05-10 18:36 | XMS_ITS | Encounter Summary ---
Author Organization [facility] Healthcare Address [address] [place] [address] Care Team Providers Care Flame Gouger Name Role Phone Warren Phillips MD Unavailable [phone] Miscellaneous, Not In File Unavailable Unava ilable No, Physician Primary Care Provider Nicole Lopez DO Unavailable Naomi Sanches MD Unavailable Teresita Marquez MD Primary Care Provide r Encounter Details Date Type Department Care Team (Late st Contact Info) Description 01/30/2022 Documentation [facility] [address] [place] [address] Charisma Bustos RN Social History Tobacco Use Types Packs/Day Years [...] 01/20/2022 How often do you attend chur or voodoo services? 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 Verbalized understanding. IV removed, tolerated well. No traffic monitor specialist. Patient taken by wheelchair to awaiting ride. documented in this encounter Plan of Treatment Not on file documented as of this encounter Visit Diagnoses Not on filedocumented in this encounter Care Teams Flame Gouger Relationship Specialty Start Date End Date No, Physician PCP - General 11/21/21 02/01/22 Teresita Marquez MD [address] [facility] [address] [facility] [address] [place] [address] PCP - General Family Medicine 02/02/22 Warren Phillips MD Consulting Physician Gastroenterology 02/16/19 Miscellaneous, Not In File 07/23/21 Nicole Lopez DO [address] [facility] [facility] [address] [place] [address] Resident Family Medicine 11/22/21 Naomi Sanches MD [address] [facility] [facility] [address] [place] [address] Referring Physician General Surgery 11/22/21 documented as of this encounter
--- OUTSIDE RECORDS SUMMARY | 2024-05-10 18:36 | XMS_ITS | Encounter Summary ---
Author Organization [facility] Healthcare Address [address] [place] [address] Care Team Providers Care Monument Mason Name Role Phone Warren Phillips MD Unavailable [phone] Miscellaneous, Not In File Unavailable Unava ilable No, Physician Primary Care Provider [phone] Nicole Lopez DO Unavailable Naomi Sanches MD Unavailable Reason for Visit * Reason Comments Nausea Vomiting * Auth/Cert Specialty Diagnoses / Procedures Referred By Contac t Referred To Contact Diagnoses Diabetic gastroparesis (CMS/HCC) (HCC) Nausea and vomiting, unspecified vomiting type Procedures N/A Referral ID Status Reason Start Date Expiration Date Visits Re quested Visits Authorized [id number] 1 1 Encounter Details Date Type Department Care Team (Latest Contact Info) Description 01/29/2022 2:15 PM CDT - 01/30/2022 1:31 PM CDT Hospital Encounter [facility] IMU [address] [place] [address] Mukesh Champion MD [address] [place] [address] [place] [address] Nasim Charles MD [address] [place] [address] [place] [address] Sanjuanita Enamorado MD [address] [facility] [place] [address] Nausea and vomiting, unspecified vomiting type (Primary Dx); Diabetic gastroparesis (CMS/HCC) (HCC) Discharge Disposition: Discharge to home or self [...] week 01/20/2022 How often do you attend [facility] or taoism services? 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 Gender Identity Not on file Sexual Orientation Not on file documented as of this encounter Last Filed Vital Signs Vital Sign Reading Time Taken Comments Blood Pressure 115/72 01/30/2022 11:24 AM CDT Pulse 72 01/30/2022 12:00 PM CDT Temperature 37.1 ??C (98.7 ??F) 01/30/2022 11:24 AM C DT Respiratory Rate 20 01/30/2022 11:24 AM CDT Oxygen Saturation 100% 01/30/2022 11:24 AM CDT Inhaled Oxygen Concentration - - Weight 69.9 kg (154 lb 1.6 oz) 01/29/2022 6:30 P M CDT Height 154.9 cm (5' 1 ) 01/29/2022 6:30 PM CDT Body Mass Index 29.12 01/29/2022 6:30 PM CDT documented in this encounter Discharge Summaries * Trevon Boss MD - 01/30/2022 1:06 PM CDT Inpatient Discharge Summary Patient Name - Karina Fuchs Patient Age - 26 yrs Patient - [id number] [facility] - [id number] Document Creation Date: 01/30/2022 Admitting Provider, : Nasim Charles MD Discharge Provider, : Sanjuanita Enamorado MD Primary Care Physician at Discharge: No, Physician [phone] Admission Date: 01/29/2022 Discharge Date/time: 01/30/2022 Admission Location: [facility] LOS - LOS: 1 day DETAILS OF HOSPITAL STAY Hospital Problems/Diagnoses Principal Problem: Nausea and vomiting, unspecified vomiting type Active Problems: Dehydration Diabetic gastroparesis (CMS/HCC) (HCC) Tachycardia Type 1 diabetes mellitus with hyperglycemia ([facility]) Reason for Hospitalization: Patient is a 26 y.o. female with a PMHx of type 1 diabetes, diabetic gastroparesis, noncompliance, cannabinoid hyperemesis syndrome presents to the ED with a chief complaint of nausea and vomiting. Patient presented to the emergency department with complains of persistent nausea and vomiting associated with some back pain, generalized fatigue. Symptoms worse with eating meals. Blood sugars wererunning persistently above 300. Patient denies any fever, chills, chest pain, cough, shortness of breath pain. Denies dysuria. Patient was concerned about DKA so came to the emergency department for evaluation. On further workup noted to be tachycardic, slightly hypertensive. Blood work showed mild thrombocytosis, respiratory alkalosis, urine drug screen negative urinalysisdid not meet the criteria UTI. CT abdomen pelvis was negative as well. Patient was given a dose of reglan, started on IV fluids and referred for admission for further management. Hospital Course: Pt was given a bolus of saline and was then placed on mIVF of NS. She progressed well and did not have any episodes of emesis since presenting to [facility]. Pt tolerated reglan medications well. Pt slept well throughout the night w/o any incidents, AG was w/in NL, and she was active and alert when evaluated in the morning. Discharge Details Physical Exam at Discharge: Discharge Condition: good Pulse: 72 Resp: 20 BP: 115/72 Temp: 37.1 ??C (98.7 ??F) Weight: 69.9 kg (154 lb 1.6 oz) Pertinent Exam Findings at Discharge: Physical Exam Vitals and nursing note reviewed. Constitutional: General: She is not in acute distress. Appearance: Normal appearance. She is not ill-appearing. HENT: Head: Normocephalic. Nose: Nose normal. Mouth/Throat: Mouth: Mucous membranes are moist. Eyes: General: No scleral icterus. Extraocular Movements: Extraocular movements intact. Cardiovascular: Rate and Rhythm: Normal rate and regular rhythm. Pulses: Dorsalis pedis pulses are 2+ on the right side and 2+ on the left side. Heart sounds: No murmur heard. No friction rub. No gallop. Comments: Radial pulses 2+, equal b/l Pulmonary: Effort: Pulmonary effort is normal. No respiratory distress. Breath sounds: No wheezing, rhonchi or rales. Abdominal: General: There is no distension. Palpations: Abdomen is soft. Tenderness: There is no abdominal tenderness. Musculoskeletal: Cervical back: Normal range of motion. No tenderness. Right lower leg: No edema. Left lower leg: No edema. Skin: General: Skin is warm. Capillary Refill: Capillary refill takes less than 2 seconds. Findings: No rash. Neurological: Mental Status: She is alert and oriented to person, place, and time. Psychiatric: Mood and Affect: Mood normal. Behavior: Behavior normal. Discharge Disposition: Discharge to home or self care Code Status at Discharge: Full Code Active Issues & Recommended Plan for Follow-up: DM1 management Allergies: Patient has no known allergies. Discharge Medications: Your medication list START taking these medications Instructions Last Dose Given Next Dose Due metoclopramide 5 mg tablet Commonly known as: REGLAN Take 1 tablet (5 mg total) by mouth 4 (four) times a day for 3 days CHANGE how you take these medications Instructions Last Dose Given Next Dose Due insulin glargine 100 unit/mL vial for injection Commonly known as: HELADIO WILSON What changed: Another medication with the same name was removed. Continue taking this medication, and follow the directions you see here. CONTINUE taking these medications Instructions Last Dose Given Next Dose Due insulin lispro 100 unit/mL vial for injection Commonly known as: HumaLOG, ADMELOG Where to Get Your Medications These medications were sent to [facility] [place], [place] - [address] [facility] [id number] [facility] [address], [facility] [id number] metoclopramide 5 mg tablet Time Spent in Discharge Process: I have spent 90 minutes on discharge planning activities. Time spent was on Coordination of care, Counselling with patient/family, discharge exam, and parent/patient education Test Results Pending at Discharge (If Blank, None Found): Operative Procedures Performed (If Blank, None Found): Outpatient Follow-Up: Future Appointments Date Time Provider Department Center 02/02/2022 8:00 AM Teresita Marquez MD [facility] [address] Contact Information for Follow-ups Teresita Marquez MD Specialty: Family Medicine [address] [facility] [address] Next Steps: Follow up on 02/02/2022 Instructions: 8:00 AM Please schedule an appointment with the following provider(s): Teresita Marquez MD [address] [place] [address] [address] [place] [address] Follow up on 02/02/2022 8:00 AM ANCILLARY INFORMATION Other Procedures & Diagnostic Tests: CT Abdomen Pelvis WO Contrast Result Date: 01/29/2022 EXAM DESCRIPTION: CT ABDOMEN PELVIS WO CONTRAST REASON FOR STUDY: Abdominal pain, acute, nonlocalized Nausea and vomiting since this morning TECHNIQUE: CT scan of the abdomen and pelvis performed without intravenous and without oral contrast using helical scanning technique. Reconstructed coronal and sagittal MPR images reviewed. All images stored on PACS. Automated exposure control was used as adose optimization technique for this examination. COMPARISON: 05/29/2018 FINDINGS: The sensitivity for detection of visceral lesions is diminished without the use of intravenous contrast. LOWER CHEST: No consolidations or effusions. 0.3 cm soft tissue density nodule right lower lobe axial image 25 of series 2 is unchanged from 2019 as evidence of a benign process, likely granuloma. LIVER: Normal size. Subtle fatty infiltrative changes along the falciform ligament. GALLBLADDER: Normally distended BILE DUCTS: No intrahepatic or extrahepatic ductal dilatation. SPLEEN: Normal size. No focal lesions. PANCREAS: No identified cystic or solid masses. No significant calcifications. No adjacent inflammation or peripancreatic fluid collections. Pancreatic duct not dilated. ADRENALS: Normal. KIDNEYS/URINARY TRACT: No identified significant cystic or solid masses. No stones. No hydronephrosis or hydroureter. Urinary bladder is unremarkable. GI: No dilated bowel loops. No obvious wall thickening. Normal appendix. No significant diverticular disease. PERITONEUM: No ascites or free air. RETROPERITONEUM: No mass or adenopathy. REPRODUCTIVE: No significant abnormality. VASCULATURE: No abdominal aortic aneurysm. MUSCULOSKELETAL: No significant abnormality. OTHER: No other abnormality. IMPRESSION: No acute finding. REFERENCE: Unless otherwise specified, no follow-up imaging is recommended for incidental renal and adrenal lesions per consensus recommendations based on imaging criteria. Further lab evaluation could be pursued based on clinical findings. Management of the Incidental Renal Mass on CT: A White Paper of the ACR Incidental Findings Committee. J Am Alexander Radiol. 2018 Jun;15(2):264-273. Management of Incidental Adrenal Masses: A White Paper of the ACR Incidental Findings Committee.J Am Alexander Radiol. 2017 Dec;14(8):5957-7742. THIS IS AN ELECTRONICALLY VERIFIED FINAL REPORT 01/29/2022 4:59 PM - Electronically signed by Dung Loyola M.D. RB: TORSTEN Report ID: [id number] Reading Location: [place] [address] Recent Labs: Recent Labs Lab Units 01/29/22 1337 WBC K/cumm 9.0 HEMOGLOBIN g/dL 13.3 HEMATOCRIT % 39.0 PLATELETS K/cumm 520* Recent Labs Lab Units 01/29/22 1337 WBC K/cumm 9.0 HEMOGLOBIN g/dL 13.3 HEMATOCRIT % 39.0 PLATELETS K/cumm 520* NEUTROS PCT % 81.7 LYMPHS PCT % 12.2 MONOS PCT % 5.4 EOS PCT % 0.0 Recent Labs Lab Units 01/30/22 1159 01/30/22 0754 01/30/22 0553 01/29/22210301/29/22 1337 SODIUM mmol/L -- -- 137 -- 137 POTASSIUM PLASMA mmol/L -- -- 3.5 -- 3.8 CHLORIDE mmol/L -- -- -- -- 101 CO2 mmol/L -- -- -- -- 23 BUN SERUM mg/dL -- -- -- -- 17 CREATININE mg/dL -- -- -- -- 0.45* KOZ-DOM-VUBBEHD mL/min/1.73 m2 -- -- -- -- 137 GLUCOSE mg/dL -- -- -- -- 218* POC GLUCOSE MONITOR mg/dL 158* < > -- < > -- CALCIUM mg/dL -- -- -- -- 9.8 ALBUMIN g/dL -- -- -- -- 4.5 PHOSPHORUS PLASMA mg/dL -- -- 2.6 -- -- < > = values in this interval not displayed. Recent Labs Lab Units 01/30/22 1159 01/30/22 0754 01/30/22 0553 01/30/22 0319 01/29/22 2104 01/29/22 1337 SODIUM mmol/L -- -- 137 -- -- 137 POTASSIUM PLASMA mmol/L -- -- 3.5 -- -- 3.8 CHLORIDE mmol/L -- -- -- -- -- 101 CO2 mmol/L -- -- -- -- -- 23 ANIONGAP mmol/L -- -- -- -- -- 13 GLUCOSE mg/dL -- -- -- -- -- 218* POC GLUCOSE MONITOR mg/dL 158* 119* -- 81 < > -- BUN SERUM mg/dL -- -- -- -- -- 17 CREATININE mg/dL -- -- -- -- -- 0.45* CALCIUM mg/dL -- -- -- -- -- 9.8 ALBUMIN g/dL -- -- -- -- -- 4.5 ALK PHOS Units/L -- -- -- -- -- 74 ALT Units/L -- -- -- -- -- 21 AST Units/L -- -- -- -- -- 13 BILIRUBIN TOTAL mg/dL -- -- -- -- -- 0.4 < > = values in this interval not displayed. Recent Labs Lab Units 01/29/22 1337 ALK PHOS Units/L 74 BILIRUBIN TOTAL mg/dL 0.4 TOTAL PROTEIN g/dL 7.4 ALT Units/L 21 AST Units/L 13 Recent Labs Lab Units 01/30/22 0553 MAGNESIUM mg/dL 1.8 Lab Results Component Value Date GLUCOSE 158 (H) 01/30/2022 GLUCOSE 119 (H) 01/30/2022 GLUCOSE 81 01/30/2022 Implant: Implants No active implants to display in this view. General Precautions (If Blank, None Found): Isolation Status: No active isolations Nutritional Status and in-house recommendations: Dietary Orders (From admission, onward) Start Ordered 01/30/22 1023 Adult Diet Restricted; Consistent Carbohydrate Diet effective now Question Answer Comment ([facility]) Diet Type Restricted Diabetic: Consistent Carbohydrate 01/30/22 1023 Anticoagulation Indication: INR: No results found for requested labs within last 720 hours. Warfarin Administrations (last 168 hours) None Oxygen Status: O2 Therapy for the past 12 hrs: O2 Therapy 01/30/22 1124 None (Room air) 01/30/22 0700 None (Room air) 01/30/22 0319 None (Room air) Wound Care Instructions Other Instructions Call provider for: Temperature -Temperature greater than 101 degrees F Call provider for: difficulty breathing or chest pain Call provider for: hives Call provider for: persistent nausea or vomiting Call provider for: severe uncontrolled pain Call provider for: headache, visual disturbances, weakness and speech changes Active LDAs (If Blank, None Found): Peripheral IV 01/29/22 24 G Left Wrist (Active) Placement Date/Time: 01/29/22 1447 Type: Angiocath Size (Gauge): 24 G Location Orientation: Left Location: Wrist Site Prep: Alcohol Local Anesthetic: None Technique: Anatomical landmarks Inserted by:MARY Whyte Insertion attempts: 1 Patient ... Patient Emergency Contact: Primary Emergency Contact: Karen Fuchs Immunization Status at Discharge Immunization History Administered Date(s) Administered DTP / HiB 1996, 1996 DTaP 10/31/2001 Hep A, Ped Unspecified 07/14/2010 Hep A, Pediatric 03/13/2011 Hep B, Adolescent or Pediatric 1996, 1996 IPV 11/01/2001 Influenza, Quadrivalent, Split, Intramuscular 05/26/2018 Influenza, Trivalent, Intramuscular 05/13/2016, 01/01/2017 MMR 11/01/2001 Meningococcal C Conjugate 12/11/2009 Meningococcal MCV4P (Menactra) 10/25/2012 OPV 1996, 1996 Pfizer SARS-CoV-2 Vaccination (12+ yrs) PURPLE 05/11/2021 Tdap 12/11/2009, 09/09/2016 Varicella 07/14/2010 Trevon Boss MD Cosigned by Sanjuanita Enamorado MD at 01/30/2022 1:39 PM CDT Associated attestation - Sanjuanita Enamorado MD - 01/30/2022 1:39 PM CDT I personally saw and examined the patient and discussed the case with the resident. I have reviewedthe resident's note and agree with the content and plan as written. Spent 35 min coordinating d/c Sanjuanita Enamorado MD documented in this encounter Discharge Instructions * Discharge Instr - Diet* Brandee Suárez - 01/30/2022 12:22 PM CDT Continue to follow a Consistent Carbohydrate diet upon discharge. Avoid concentrated sweets such ascookies, cake, candy and ice cream. Also, avoid sugar-sweetened beverages such as lemonade, sweet tea, regular soda, juice and Gatorade. Eat 45 g (women), 60 g (men) of carbohydrates at each meal. Eat at consistent times. If interested, ask your doctor for referral to outpatient nutrition counseling. Call [facility] Outpatient Dietitian's office at [phone] for questions about your diet. Additional resources available from the [place] [employer] can be found at www.di abetes.org/nutrition Gastroparesis Diet Tips: Avoid large meals. Eat small, frequent meals and snacks 4 to 8 times a day Avoid solid foods that are high in fat (fried foods, foods with gravies or cream sauce) Do not eat high fiber foods. This may fill your stomach and slow down the emptying times. Chew your food well, especially meats. Drink calorie containing beverages with medications and sip with meals to get calories. Avoid alcohol, smoking, caffeine, mint, and carbonated beverages Sit up while eating and stay upright for at least 1 hour after you have finished. If decreasing size of meals and frequency does not work, switch to more liquid- type foods. Some medications will slow stomach emptying. Ask your doctor if any of your medications may be slowing down your stomach emptying. Keep you blood sugars under control. Let your doctor know when your blood sugar is higher than usual on a regular basis. documented in this encounter Medications at Time of Discharge insulin lispro (HumaLOG) 100 unit/mL injection Inject under the skin 3 (three) times a day before meals Uses per sliding scale 1 unit per every 7-8 grams of carb max of 50 units per day insulin glargine 100 unit/mL vial for injection Inject 25 Units under the skin nightly 07/15/2022 metoclopramide (REGLAN) 5 mg tablet Take 1 tablet (5 mg total) by mouth 4 (four) times a day for 3 days 12 tablet 01/30/2022 02/02/2022 documented as of this encounter Ordered Prescriptions Prescription Sig Dispense Quantity Refills Last Filled Start Date End Date metoclopramide (REGLAN) 5 mg tablet Take 1 tablet (5 mg total) by mouth 4 (four) times a day for 3 days 12 tablet 01/30/2022 02/02/2022 documented in this encounter Discharge Disposition Disposition Code Departure Means Destination Discharge to home or self care documented in this encounter Progress Notes * Brandee Suárez - 01/30/2022 12:23 PM CDT Nutrition Assessment Reason for Assessment: Screened at Nutrition Risk and Initial Nutrition Assessment Encounter Date: 01/30/22 12:23 PM Nutrition Assessment and Plan: Patient is a 26 y.o. female. Admit Dx: Diabetic gastroparesis (CMS/HCC) (HCC) [E11.43, K31.84] Nausea and vomiting, unspecified vomiting type [R11.2]. Admitted on 01/29/2022, current LOS is 1 days. Screened for readmission risk. Pmh of dm1. 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 Follows consistent carb diet at home, 30 - 45 g CHO @ breakfast, 50 - 70 g CHO @ lunch and dinner. Declined need for further dm diet edu. Accepting of gastroparesis diet information. Adult Malnutrition Scoring Tool (MST) Have You Recently Lost Weight Without Trying?: No Have you been eating poorly because of a decreased appetite?: No Malnutrition Screening Tool (MST) Score: 0 Current diet order: Adult Diet Restricted; Consistent Carbohydrate Adult Discharge Diet Diet advanced this morning. Nutrition Diagnosis 1: Food and nutrition-related knowledge deficit Related to: Lack of education Evidenced by: Patient interview Interventions: Education Monitoring and Evaluation: Discharge plans, Diet-related questions, Labs, Plan of care, PO intake, Blood glucoses Goals: Patient/caregiver able to teach back understanding of role of diet in disease process prior to discharge Recommendations: Gastroparesis diet education and handout provided Wt Readings from Last 10 Encounters: 01/29/22 69.9 kg (154 lb 1.6 oz) 01/20/22 73.4 kg (161 lb 13.1 oz) 11/22/21 67.8 kg (149 lb 8 oz) 10/25/21 75.7 kg (166 lb 14.2 oz) 07/22/21 73.1 kg (161 lb 2.5 oz) 04/28/21 76.5 kg (168 lb 11.2 oz) 03/26/21 64.1 kg (141 lb 5 oz) 03/05/21 66 kg (145 lb 8.1 oz) 11/16/20 73.5 kg (162 lb) 11/17/20 73.5 kg (162 lb 0.6 oz) Estimated needs: Total Kcal/kg Estimated Needs : 1747.5 based on Kcal/k. Type of Weight Used for Estimated Kcals: Current Total Protein Estimated Needs (gm): 69.9 Protein Needs Based on g/k.0 Type of Weight Used for Estimated Protein : Current. Total Fluid Estimated Needs: 1747.5 Fluid Needs Based on : 1 ml/kcal. Objective Anthropometrics Weight: 69.9 kg (154 lb 1.6 oz) Admission Weight : 69.9 kg Weight Change: 4.12 kg (9.10 lbs) IBW/kg (Calculated) : 47.6 kg Height: 154.9 cm (5' 1 ) Weight in (lb) to have BMI = 25: 132 BMI (Calculated): 29.1 BMI Classification: BMI 25.0 - 29.9 Overweight 3 Day I/O Summary No intake/output data recorded. Temp: 37.1 ??C (98.7 ??F) Past Medical History: Diagnosis Date Cannabinoid hyperemesis syndrome Dehydration 01/02/2018 Depression Diabetes mellitus (HCC) T1DM Diabetic ketoacidosis ([facility]) ([facility]) Miscarriage Uncontrolled type 1 diabetes mellitus with hyperglycemia ([facility]) ([facility]) 01/02/2018 Medications and Lab Review: Scheduled Meds: enoxaparin, 40 mg, subcutaneous, Daily-2100 insulin glargine, 20 Units, subcutaneous, Nightly insulin lispro, 0-5 Units, subcutaneous, Q4H BOB metoclopramide, 10 mg, intravenous, Q6H BOB Continuous Infusions: sodium chloride 0.9%, 150 mL/hr, Last Rate: Stopped (01/30/22 1123) Sodium Date Value Ref Range Status 01/30/2022 137 135 - 145 mmol/L Final Potassium, pl Date Value Ref Range Status 01/30/2022 3.5 3.3 - 4.9 mmol/L Final BUN Date Value Ref Range Status 01/29/2022 17 8 - 25 mg/dL Final Creatinine Date Value Ref Range Status 01/29/2022 0.45 (L) 0.60 - 1.10 mg/dL Final Phosphorus, pl Date Value Ref Range Status 01/30/2022 2.6 2.3 - 4.5 mg/dL Final Albumin Date Value Ref Range Status 01/29/2022 4.5 3.5 - 5.0 g/dL Final Magnesium Date Value Ref Range Status 01/30/2022 1.8 1.4 - 2.5 mg/dL Final Calcium Date Value Ref Range Status 01/29/2022 9.8 8.5 - 10.3 mg/dL Final Lab Results Component Value Date HGBA1C 6.6 (H) 01/29/2022 POC Glucose: Latest Reference Range & Units 01/29/22 23:37 01/30/22 03:19 01/30/22 07:54 01/30/22 11:59 Glucose, POC 71 - 98 mg/dL 172 (H) 81 119 (H) 158 (H) (H): Data is abnormally high Nursing Assessment: Bowel Sounds (All Quadrants): Active Teodoro Scale Score: 20 Diet Instructions Adult Discharge Diet Diet Type: Return to previous diet Continue to follow a Consistent Carbohydrate diet upon discharge. Avoid concentrated sweets such ascookies, cake, candy and ice cream. Also, avoid sugar-sweetened beverages such as lemonade, sweet tea, regular soda, juice and Gatorade. Eat 45 g (women), 60 g (men) of carbohydrates at each meal. Eat at consistent times. If interested, ask your doctor for referral to outpatient nutrition counseling. Call [facility] Outpatient Dietitian's office at [phone] for questions about your diet. Additional resources available from the [place] [employer] can be found at www.di abetes.org/nutrition Gastroparesis Diet Tips: Avoid large meals. Eat small, frequent meals and snacks 4 to 8 times a day Avoid solid foods that are high in fat (fried foods, foods with gravies or cream sauce) Do not eat high fiber foods. This may fill your stomach and slow down the emptying times. Chew your food well, especially meats. Drink calorie containing beverages with medications and sip with meals to get calories. Avoid alcohol, smoking, caffeine, mint, and carbonated beverages Sit up while eating and stay upright for at least 1 hour after you have finished. If decreasing size of meals and frequency does not work, switch to more liquid- type foods. Some medications will slow stomach emptying. Ask your doctor if any of your medications may be slowing down your stomach emptying. Keep you blood sugars under control. Let your doctor know when your blood sugar is higher than usual on a regular basis. Nutrition Follow-Up : 02/05/22 ([facility]) KALYAN Garcias * Felipe Mayo, [facility] - 01/29/2022 9:57 PM CDT Pharmacy Consult -Electrolyte Repletion Protocol An order to initiate electrolyte repletion by pharmacy has been received from Dr. Sewell. IV or PO repletion will be ordered by the pharmacist when levels fall below the desired range basedon NPO status as follows: If potassium level is greater than 2.8 and less than 3.3, give 40mEq potassium chloride IVPB, or oral (per NG tube, when applicable). If potassium level is 2.8 or less, or greater than 6, call physician for orders If magnesium level is 1.0 - 1.5 and patient can take oral medications, administer magnesium oxide 400 mg oral TID x 3 doses. If magnesium level is <1.0, or 1.0 -1.5 and patient is NPO, administer 2 grams magnesium sulfateIVPB over 2 hours. Repletion of Phosphorus Patient can take oral/per tube meds sodium/potassium phosphate Tab contains 1.1 mEq K, 13 mEq Na, 8 mmol phos Powder Packet contains 7.1 mEq K, 6.9 mEq Na, 8 mmol phos Patient NPO and/or Phosphorus level is <1.1 or Phosphorus level is 2.5 or less in TPN patient Decrease dose by 50% for CrCl < 50 Potassium level < 3.3 Potassium level 3.3 - 3.4 Potassium level 3.5 or higher Potassium level < 4.5 Potassium level 4.5 or higher Phosphorus 1.9 - 2.5 1 packet TID x 3 doses, KCl 20 mEq x 1 dose 1 packet TID x 3 doses 1 tab TID x 3 doses Potassium Phosphate 0.4 mmol/kg IVPB over 6 hours Sodium Phosphate 0.4 mmol/kg IVPB over 6 hours Phosphorus 1.1 - 1.8 2 packets TID x 3 doses, KCl 20 mEq x 1 dose 2 packets TID x 3 doses 2 tabs TID x 3 doses Monitoring Guidelines: Electrolyte levels will be ordered by providers as needed, except TPN patients who will be monitored as follows: TPN Patients: Renal panel daily x3 days, then every other day. Thank you, Felipe Mayo [facility] Pharmacy department documented in this encounter H&P Notes * Gio Sewell MD - 01/29/2022 9:05 PM CDT Adult Hospitalist Service History and Physical Patient Name: Karina Fuchs Patient : 1995 Age/Sex: 26 y.o. female Room/Bed: [place] [address]/[place] [address] Admission Date/Time: 01/29/2022 2:15 PM Date: 01/29/2022 Time: 9:05 PM Primary Care Physician: Deena Physician PCP Office Location: No address on file PCP SUBJECTIVE: Patient is a 26 y.o. female with a PMHx of type 1 diabetes, diabetic gastroparesis, noncompliance, cannabinoid hyperemesis syndrome presents to the ED with a chief complaint of nausea and vomiting. HPI Patient presented to the emergency department with complains of persistent nausea and vomiting associated with some back pain, generalized fatigue. Symptoms worse with eating meals. Blood sugars wererunning persistently above 300. Patient denies any fever, chills, chest pain, cough, shortness of breath pain. Denies dysuria. Patient was concerned about DKA so came to the emergency department for evaluation. On further workup noted to be tachycardic, slightly hypertensive. Blood work showed mild thrombocytosis, respiratory alkalosis, urine drug screen negative urinalysisdid not meet the criteria UTI. CT abdomen pelvis was negative as well. Patient was given a dose of breath 1, started on IV fluids and referred for admission for further management. Review of Systems: Positives stated in HPI. All other systems reviewed and negative. Past Medical History: Past Medical History: Diagnosis Date Cannabinoid hyperemesis syndrome Dehydration 01/02/2018 Depression Diabetes mellitus (HCC) T1DM Diabetic ketoacidosis (CMS/HCC) (HCC) Miscarriage Past Surgical History: Past Surgical History: Procedure Laterality Date SECTION, CLASSIC 2017 TONSILLECTOMY Bilateral 2002 Family History: Family History Problem Relation Age of Onset Anemia Mother Autism Brother Social History: Social History Tobacco Use Smoking status: Never Smokeless tobacco: Never Substance and Sexual Activity Drug use: Yes Types: Marijuana Sexual activity: Yes Partners: Male Alcohol Use: Not At Risk Frequency of Alcohol Consumption: Never Average Number of Drinks: Patient does not drink Frequency of Binge Drinking: Never Allergies: No Known Allergies Home Medications: Medications Prior to Admission Medication Sig Dispense Refill Last Dose insulin glargine (insulin glargine) 100 unit/mL (3 mL) pen for injection Inject 10 Units under the skin every 12 (twelve) hours (Patient not taking: Reported on 01/29/2022) 6 mL 0 Not Taking insulin glargine 100 unit/mL vial for injection Inject 25 Units under the skin nightly 01/28/2022 insulin lispro (HumaLOG) 100 unit/mL injection Inject under the skin 3 (three) times a day before meals Uses per sliding scale 1 unit per every 7-8 grams of carb max of 50 units per day 01/29/2022 Objective: Vitals: Patient Vitals for the past 24 hrs: Patient Vitals for the past 24 hrs: BP Temp Temp src Pulse Resp SpO2 Height Weight 01/29/222017 99/52 37.2 ??C (98.9 ??F) Temporal 112 16 98 % -- -- 01/29/22 1830 165/100 36.9 ??C (98.5 ??F) Temporal (!) 136 20 100 % 154.9 cm (5' 1 ) 69.9 kg (154 lb 1.6 oz) 01/29/22 1745 134/79 -- -- 102 20 98 % -- -- 01/29/22 1630 157/71 -- -- (!) 126 13 98 % -- -- 01/29/22 1500 -- -- -- 118 -- 99 % -- -- 01/29/22 1309 152/88 36.7 ??C (98.1 ??F) -- (!) 135 18 100 % 154.9 cm (5' 1 ) 65.8 kg (145 lb) Physical Exam: General: Awake, alert, oriented x4, in no acute distress Eyes: EOMI, ZORAIDA, sclare non icteric Neck: supple, trachea midline, thyroid not enlarged, no gross carotid bruits appreciated Pharynx: No gross oral lesion, tongue midline, mucosa moist Lungs CTA Heart: [id number] Abd: +BS, Non Tender, Non distended, No gross hepatomegaly Lower Ext: No gross edema Neuro: Cranial nerves II-XII grossly intact. Moves all extremities equally, no gross sensory deficits Musculoskeletal: no gross joint erythema, edema, tenderness Genitourinary: No suprapubic or CVA tenderness Skin: No skin rashes, warm and dry to palpation Laboratory Results: Recent Results (from the past 24 hour(s)) POCT glucose Collection Time: 01/29/22 1:13 PM Result Value Ref Range Glucose, POC 196 (H) 71 - 98 mg/dL CBC with auto differential Collection Time: 01/29/22 1:37 PM Result Value Ref Range WBC 9.0 3.8 - 9.9 K/cumm Hgb 13.3 11.9 - 15.5 g/dL Hct 39.0 35.6 - 45.5 % Plt 520 (H) 150 - 400 K/cumm MPV 8.9 (L) 9.1 - 12.3 fL RBC 4.60 3.90 - 5.20 M/cumm MCV 84.8 81.3 - 96.4 fL MCH 28.9 27.1 - 33.3 pg MCHC 34.1 32.3 - 35.7 g/dL RDW CV 14.7 11.1 - 14.9 % RDW SD 45.5 35.7 - 48.1 fL NRBC abs 0.00 0.00 - 0.01 K/cumm Comprehensive metabolic panel Collection Time: 01/29/22 1:37 PM Result Value Ref Range Sodium 137 135 - 145 mmol/L Potassium, pl 3.8 3.3 - 4.9 mmol/L Chloride 101 97 - 110 mmol/L CO2 23 22 - 32 mmol/L Anion gap 13 2 - 15 mmol/L BUN 17 8 - 25 mg/dL Creatinine 0.45 (L) 0.60 - 1.10 mg/dL Glucose 218 (H) 70 - 199 mg/dL Calcium 9.8 8.5 - 10.3 mg/dL Bilirubin, total 0.4 0.1 - 1.2 mg/dL Protein, pl 7.4 6.5 - 8.5 g/dL Albumin 4.5 3.5 - 5.0 g/dL Alk phos 74 40 - 130 Units/L ALT 21 7 - 45 Units/L AST 13 10 - 45 Units/L Differential, auto Collection Time: 01/29/22 1:37 PM Result Value Ref Range Neutrophil abs 7.4 (H) 1.7 - 6.5 K/cumm Imm gran abs 0.0 0.0 - 0.1 K/cumm Lymphocyte abs 1.1 0.8 - 3.3 K/cumm Monocyte abs 0.5 0.2 - 0.8 K/cumm Eosinophil abs 0.0 0.0 - 0.5 K/cumm Basophil abs 0.0 0.0 - 0.1 K/cumm Neutrophil pct 81.7 % Imm gran pct 0.4 % Lymphocyte pct 12.2 % Monocyte pct 5.4 % Eosinophil pct 0.0 % Basophil pct 0.3 % eGFR Collection Time: 01/29/22 1:37 PM Result Value Ref Range eGFR 137 mL/min/1.73 m2 hCG, blood, quantitative Collection Time: 01/29/22 1:37 PM Result Value Ref Range hCG, quant <5.0 0.0 - 5.0 IUnits/L Sepsis Lactate w/ Reflex Collection Time: 01/29/22 3:51 PM Result Value Ref Range Sepsis Lactate 1.6 0.7 - 2.0 mmol/L Blood gas, venous Collection Time: 01/29/22 3:51 PM Result Value Ref Range pH, Venous 7.47 (H) 7.32 - 7.43 PCO2, Venous 31 (L) 40 - 50 mmHg PO2, Venous 135 mmHg HCO3 Venous, Calculated 22 20 - 30 mmol/L BE, venous -1 mmol/L Urinalysis reflex to microscopic and culture Urine Collection Time: 01/29/22 6:13 PM Specimen: Urine Result Value Ref Range Color, ur Yellow Yellow Clarity, ur Clear Clear Specific gravity, ur 1.034 (H) 1.003 - 1.030 pH, urine 7.5 Protein, ur ql Negative Negative Glucose, ur ql 4+ (A) Negative Ketones, ur 3+ (A) Negative Bilirubin, ur Negative Negative Blood, ur Negative Negative Urobilinogen, ur <2.0 <2.0 mg/dL Nitrite, ur Negative Negative Leukocyte esterase, ur 1+ (A) Negative UA reflex comment Reflex to microscopic UA will be performed. Drugs of Abuse Screen, Urine without Confirmation Collection Time: 01/29/22 6:13 PM Result Value Ref Range Amphetamine, ur [...] Not Detected CutOff 25 ng/mL Urine Creatinine 61 mg/dL Urinalysis, microscopic only Collection Time: 01/29/22 6:13 PM Result Value Ref Range WBC, ur 0-5 0 - 5 /HPF RBC, ur 0-2 0 - 2 /HPF Epithelial cells, squamous, ur 1-5 0 - 5 /HPF Mucous, ur Present (A) Culture Reflex Comment Reflex conditions for urine culture (WBC >10) not met. POCT glucose Collection Time: 01/29/22 9:04 PM Result Value Ref Range Glucose, POC 261 (H) 71 - 98 mg/dL Radiology: CT Abdomen Pelvis WO Contrast Result Date: 01/29/2022 Narrative: EXAM DESCRIPTION: CT ABDOMEN PELVIS WO CONTRAST REASON FOR STUDY: Abdominal pain, acute,nonlocalized Nausea and vomiting since this morning TECHNIQUE: CT scan of the abdomen and pelvis performed without intravenous and without oral contrast using helical scanning technique. Reconstructed coronal and sagittal MPR images reviewed. All images stored on PACS. Automated exposure control was used as a dose optimization technique for this examination. COMPARISON: 05/29/2018 FINDINGS: The sensitivity for detection of visceral lesions is diminished without the use of intravenous contrast. LOWER CHEST: No consolidations or effusions. 0.3 cm soft tissue density nodule right lower lobe axial image 25 of series 2 is unchanged from 2019 as evidence of a benign process, likely granuloma. LIVER: Normal size. Subtle fatty infiltrative changes along the falciform ligament. GALLBLADDER: Normally distended BILE DUCTS: No intrahepatic or extrahepatic ductal dilatation. SPLEEN: Normal size. No focal lesions. PANCREAS: No identified cystic or solid masses. No significant calcifications. No adjacent inflammation or peripancreatic fluid collections. Pancreatic duct not dilated. ADRENALS: Normal. KIDNEYS/URINARY TRACT: No identified significant cystic or solid masses. No stones. No hydronephrosis or hydroureter. Urinary bladder is unremarkable. GI: No dilated bowel loops. No obvious wall thickening. Normal appendix. No significant diverticular disease. PERITONEUM: No ascites or free air. RETROPERITONEUM: No mass or adenopathy. REPRODUCTIVE: No significant abnormality. VASCULATURE: No abdominal aortic aneurysm. MUSCULOSKELETAL: No significant abnormality. OTHER: No other abnormality. IMPRESSION: No acute finding. REFERENCE: Unless otherwise specified, no follow-up imaging is recommended for incidental renal and adrenal lesions per consensus recommendations based on imaging criteria. Further lab evaluation could be pursued based on clinical findings. Management of the Incidental Renal Mass on CT: A White Paper of the ACR Incidental Findings Committee. J Am Alexander Radiol. 2018 Jun;15(2):264-273. Management of Incidental Adrenal Masses: A White Paper of the ACR Incidental FindingsCommittee. J Am Alexander Radiol. 2017 Dec;14(8):7861-1244. THIS IS AN ELECTRONICALLY VERIFIED FINAL REPO RT 01/29/2022 4:59 PM - Electronically signed by Dung Loyola M.D. RB: TORSTEN Report ID: [id number] Reading Location: [id number] ASSESSMENT AND PLAN: Principal Problem: Nausea and vomiting, unspecified vomiting type Dehydration Tachycardia Patient presented persistent nausea vomiting, unable to tolerate any fluids or fluids. Symptoms worse with any food intake. Presentation highly concerning for diabetic gastroparesis. She is persistently tachycardic dry mucosal membranes.. Additionally mixed metabolic and respiratory alkalosis due to GI losses and tachypnea. Continue with IV fluid hydration monitor strict I&Os, telemetry monitoring Active Problems: Diabetic gastroparesis (CMS/HCC) (HCC) Started on Reglan Will check TSH reflex to T4 A1c electrolytes, replete as needed Type 1 diabetes mellitus with hyperglycemia (HCC) Continue Lantus, dose adjusted to inpatient protocol. SSI with Accu-Cheks AC HS Principal Problem: Nausea and vomiting, unspecified vomiting type Active Problems: Dehydration Diabetic gastroparesis (CMS/HCC) (HCC) Tachycardia Type 1 diabetes mellitus with hyperglycemia (HCC) Full Code Expected LOS: more than 2 MN MDM:high complexity Gio Sewell MD Internal Medicine - Hospitalist [facility] - Adult Hospitalist Service CC: No, Physician documented in this encounter Nursing Notes * Heriberto Soliz RN - 01/30/2022 3:13 AM CDT Trio rounding with Dr. Sewell documented in this encounter ED Notes * Mukesh Champion MD - 01/29/2022 2:44 PM CDT HPI Chief Complaint Patient presents with Nausea Vomiting Patient has vomiting this morning. She has been unable to eat anything. She has some back pain. No abdominal pain. She has been extremely tired. Symptoms are worse when she tries to eat. Blood sugar was above 300. She is concerned about DKA. No cough. No fever. Patient History: Patient Active Problem List Diagnosis Date Noted Nausea and vomiting, unspecified vomiting type 01/18/2022 Hyponatremia 11/21/2021 Constipation 11/21/2021 Nausea and vomiting 11/20/2021 Acute renal failure (CMS/HCC) (HCC) Thrombocytopenia (CMS/HCC) (HCC) 10/28/2021 Leukocytosis 04/29/2021 Hypophosphatemia Intractable vomiting with nausea Altered mental status 03/04/2021 Diabetic ketoacidosis with coma associated with type 1 diabetes mellitus (CMS/HCC) ([facility]) 11/16/2020 Marijuana abuse 11/16/2020 Intractable vomiting 03/13/2020 T1DM in 03/06/2020 Noncompliance with medication regimen 04/26/2019 Tachycardia 03/24/2019 Diabetic gastroparesis ([facility]) ([facility]) 02/14/2019 Depression 02/11/2019 Hypokalemia 11/08/2018 Type 1 diabetes mellitus with ketoacidosis without coma ([facility]) ([facility]) Cannabinoid hyperemesis syndrome 01/02/2018 Dehydration 01/02/2018 Uncontrolled type 1 diabetes mellitus with hyperglycemia ([facility]) ([facility]) 01/02/2018 Past Medical History: Diagnosis Date Cannabinoid hyperemesis syndrome Dehydration 01/02/2018 Depression Diabetes mellitus ([facility]) T1DM Diabetic ketoacidosis ([facility]) ([facility]) Miscarriage Past Surgical History: Procedure Laterality Date SECTION, CLASSIC 2017 TONSILLECTOMY Bilateral 2002 Family History Problem Relation Age of Onset Anemia Mother Autism Brother Social History Tobacco Use Smoking status: Never Smokeless tobacco: Never Substance and Sexual Activity Drug use: Yes Types: Marijuana Sexual activity: Yes Partners: Male Alcohol Use: Not At Risk Frequency of Alcohol Consumption: Never Average Number of Drinks: Patient does not drink Frequency of Binge Drinking: Never Alcohol Use: Not At Risk Frequency of Alcohol Consumption: Never Average Number of Drinks: Patient does not drink Frequency of Binge Drinking: Never Social History Social History Narrative Not on file Review of Systems Review of Systems Constitutional: Negative for chills and fever. HENT: Negative for congestion, rhinorrhea and sore throat. Eyes: Negative for pain. Respiratory: Negative for cough and shortness of breath. Cardiovascular: Negative for chest pain and leg swelling. Gastrointestinal: Positive for nausea and vomiting. Negative for abdominal pain and diarrhea. Genitourinary: Negative for difficulty urinating. Musculoskeletal: Positive for back pain. Negative for myalgias. Skin: Negative for rash. Neurological: Negative for dizziness and headaches. Psychiatric/Behavioral: Negative for behavioral problems. Physical Exam ED Triage Vitals [01/29/22 1309] Temp Pulse Resp BP SpO2 36.7 ??C (98.1 ??F) (!) 135 18 152/88 100 % Temp src Heart Rate Source Patient Position BP Location FiO2 (%) -- -- -- -- -- Height Height Method Weight Weight Method 1.549 m (5' 1 ) -- 65.8 kg (145 lb) -- Physical Exam Vitals and nursing note reviewed. Constitutional: General: She is not in acute distress. Appearance: She is well-developed. Comments: Ill-appearing HENT: Head: Normocephalic and atraumatic. Eyes: Conjunctiva/sclera: [...] and oriented to person, place, and time. Labs Reviewed CBC WITH AUTO DIFFERENTIAL - Abnormal Result Value WBC 9.0 Hgb 13.3 Hct 39.0 Plt 520 (*) MPV 8.9 (*) RBC 4.60 MCV 84.8 MCH 28.9 MCHC 34.1 RDW CV 14.7 RDW SD 45.5 NRBC abs 0.00 COMPREHENSIVE METABOLIC PANEL - Abnormal Sodium 137 Potassium, pl 3.8 Chloride 101 CO2 23 Anion gap 13 BUN 17 Creatinine 0.45 (*) Glucose 218 (*) Calcium 9.8 Bilirubin, total 0.4 Protein, pl 7.4 Albumin 4.5 Alk phos 74 ALT 21 AST 13 DIFFERENTIAL AUTO - Abnormal Neutrophil abs 7.4 (*) Imm gran abs 0.0 Lymphocyte abs 1.1 Monocyte abs 0.5 Eosinophil abs 0.0 Basophil abs 0.0 Neutrophil pct 81.7 Imm gran pct 0.4 Lymphocyte pct 12.2 Monocyte pct 5.4 Eosinophil pct 0.0 Basophil pct 0.3 BLOOD GAS, VENOUS - Abnormal pH, Venous 7.47 (*) PCO2, Venous 31 (*) PO2, Venous 135 HCO3 Venous, Calculated 22 BE, venous -1 POCT GLUCOSE DEVICE - Abnormal Glucose, POC 196 (*) URINALYSIS AND REFLEX TO MICROSCOPIC AND CULTURE SEPSIS LACTATE WITH REFLEX Sepsis Lactate 1.6 EGFR eGFR 137 HCG, BLOOD, QUANTITATIVE hCG, quant <5.0 CT Abdomen Pelvis WO Contrast Final Result MDM Medical Decision Making Differential Diagnosis or Management Options: Patient presents with nausea and vomiting. History ofDKA. Summarize previous history: Type 1 diabetes. History of diabetic gastroparesis. Summarize history: No DKA. Patient having persistent vomiting. Will admit for fluids and nausea medications. Discussed with: Admitting physician They agree with: Admission ED Course as of 01/29/221802 Time: 01/29 1606 Comment: Patient still having vomiting. By: Mukesh Champion MD Time: 01/29 1746 Comment: Dr. Charles will admit. By: Mukesh Champion MD Final diagnoses: Nausea and vomiting, unspecified vomiting type Diabetic gastroparesis (CMS/HCC) (HCC) Mukesh Champion MD 01/29/221803 * Katlin Del Valle RN - 01/29/2022 1:07 PM CDT Pt presents to ER with c/o nausea and vomiting since this morning. Pt vomited about 5 times. Pt type 1 DM. States BS is 300. Hx DKA. BS in triage 196. documented in this encounter Miscellaneous Notes * Plan of Care - Yenifer Swan RN - 01/30/2022 12:51 PM CDT CM Initial Assessment Interview Note Information Obtained From: Patient (01/30/22 1247) Admission Source: ED Impression: C/o nausea, vomiting, and DKA Plan Includes: Assessment and discharge planning. Primary Source of Transportation: Does the patient need discharge transport arranged?: No (01/30/22 124) Health Insurance Coverage: [employer]ET[employer] Prescription Coverage: Yes Pharmacy: [facility] on [address] in [place], [place] Primary Care Provider: Deena, Physician Prior to Admission: Primary Caregiver: Self Who does the patient or legal guardian want to receive education instruction and discharge plans for after care assistance?: Decline Support System: Parent, Children Support system contact info (name, phone, availablity): Karen Fuchs Mother [phone] Home Care Services: No Durable Medical Equipment: None Living Arrangements: Children, Parent Type of Residence: Private residence Steps in home? : Yes, Inside home Number of steps inside:: 5 steps (01/29/22 1800) SDOH: Transportation: Financial Resource: Housing: Social Connections: Food Insecurity: Alcohol Use: PHQ Screening Potential discharge needs include: Dialysis: Behavioral Health Services: Behavioral Health Services: No (01/30/221246) Patient expects to be Discharged to: Private residence, (01/30/221246) Additional Information: Discussed discharge with patient who lives in a house with her mother and daughter. Pt. Sated that her mother will take her home at discharge. Pt. Is independent with ADLs, isemployed, and drives wherever she needs to go. A barrier to discharge is unresolved vomiting. No known needs at this time. Patient's Identified Problem/Goal Problem: Ensure acute medical needs are met and that patient has a safe discharge plan. Goal: Secure a discharge plan that patient/family are agreeable with and ensure patient has continuum of care. Case management will follow for discharge planning and send referrals as needed. Yenifer Swan RN * Plan of Care - Heriberto Soliz RN - 01/30/2022 3:47 AM CDT Goals: Clinical Goals for the Shift: VSS, free from injury, nausea/vomitting relieved Summary: Patient A&O X4 and is able to make wants and needs known call light within reach. Problem: Health Behavior: Goal: Understanding of discharge needs will improve 01/30/2022 0347 by Heriberto Soliz RN Outcome: Progressing 01/30/2022 0347 by Heriberto Soliz RN Outcome: Not Progressing documented in this encounter Plan of Treatment Not on file documented as of this encounter Procedures Procedure Name Priority Date/Time Associated Diagnosis Comments POCT GLUCOSE DEVICE Routine 01/30/2022 1 1:59 AM CDT POCT GLUCOSE DEVICE Routine 01/30/2022 7 :54 AM CDT SODIUM LEVEL Routine 01/30/2022 5:53 AM CDT POTASSIUM LEVEL Routine 01/30/2022 5:53 AM CDT PHOSPHORUS Routine 01/30/2022 5:53 AM CDT MAGNESIUM Routine 01/30/2022 5:53 AM CDT POCT GLUCOSE DEVICE Routine 01/30/2022 3 :19 AM CDT POCT GLUCOSE DEVICE Routine 01/29/2022 1 1:37 PM CDT THYROID FUNCTION CASCADE Routine 01/29/2022 10:34 PM CDT LIPASE Routine 01/29/2022 10:34 PM CDT HEMOGLOBIN A1C Routine 01/29/2022 10:34 PM CDT POCT GLUCOSE DEVICE Routine 01/29/2022 9 :04 PM CDT URINALYSIS AND REFLEX TO MICROSCOPIC AND CULTURE STAT 01/29/2022 6:13 PM CDT DRUGS OF ABUSE SCREEN, URINE WITHOUT CONFIRMATION STAT 01/29/2022 6:13 PM CDT URINALYSIS, MICROSCOPIC ONLY STAT 01/29/2022 6:[address] ABDOMEN PELVIS WO CONTRAST ED 01/29/2022 4:44 PM CDT SEPSIS LACTATE WITH REFLEX STAT 01/29/2022 3:51 PM CDT BLOOD GAS, VENOUS STAT 01/29/2022 3:5 1 PM CDT EGFR STAT 01/29/2022 1:37 PM CDT DIFFERENTIAL AUTO STAT 01/29/2022 1:3 7 PM CDT CBC WITH AUTO DIFFERENTIAL STAT 01/29/2022 1:37 PM CDT HCG, BLOOD, QUANTITATIVE STAT 01/29/2022 1:37 PM CDT COMPREHENSIVE METABOLIC PANEL STAT 01/29/2022 1:37 PM CDT POCT GLUCOSE DEVICE Routine 01/29/2022 1 :13 PM CDT documented in this encounter Results * (ABNORMAL) POCT glucose (01/30/2022 11:59 AM CDT) Glucose, POC 158(H) 71 - 98 mg/dL [facility]) Blood 01/30/2022 11:5 9 AM CDT 01/30/2022 11:59 AM CDT Sanjuanita Enamorado MD LAB POCT ORDERABLES - DEVICE Final Result [facility]OM[facility] ([place]) [address] [facility] [place] [address] * (ABNORMAL) POCT glucose (01/30/2022 7:54 AM CDT) Glucose, POC 119(H) 71 - 98 mg/dL [facility]) Blood 01/30/2022 7:54 AM CDT 01/30/2022 7:54 AM CDT Sanjuanita Enamorado MD LAB POCT ORDERABLES - DEVICE Final Result Performing Organization Address City/[facility]/ZIP Co de Phone Number TOMY [facility]HU ([place]) [address] [facility] [email or web address] [address] * Magnesium (01/30/2022 5:53 AM CDT) Magnesium 1.8 1.4 - 2.5 mg/dL [facility] ([place]) Blood 01/30/2022 5:53 AM CDT 01/30/2022 6:32 AM CDT us Gio Sewell MD LAB BLOOD ORDERABLES Final Re sult Performing Organization Address [facility] Co de Phone Number TOMY [facility]HU ([place]) [address] [place] [address] [email or web address] [address] * Potassium (01/30/2022 5:53 AM CDT) Potassium, pl 3.5 3.3 - 4.9 mmol/L [facility] ([place]) Blood 01/30/2022 5:53 AM CDT 01/30/2022 6:32 AM CDT us Gio Sewell MD LAB BLOOD ORDERABLES Final Re sult Performing Organization Address [facility] Co de Phone Number TOMY SAHU ([place]) [address] [facility] [email or web address] [address] * Phosphorus (01/30/2022 5:53 AM CDT) Phosphorus, pl 2.6 2.3 - 4.5 mg/dL [facility] ([place]) Blood 01/30/2022 5:53 AM CDT 01/30/2022 6:32 AM CDT Gio Sewell MD LAB BLOOD ORDERABLES Final Re sult Performing Organization Address City/[facility]/ZIP Co de Phone Number TOMY [facility] ([place]) [address] [facility] [email or web address] [address] * Sodium level (01/30/2022 5:53 AM CDT) Sodium 137 135 - 145 mmol/L [facility] ([place]) Blood 01/30/2022 5:53 AM CDT 01/30/2022 6:32 AM CDT Gio Sewell MD LAB BLOOD ORDERABLES Final Re sult Performing Organization Address [facility] Co de Phone Number TOMY SAHU ([place]) [address] [facility] [email or web address] [address] * POCT glucose (01/30/2022 3:19 AM CDT) Glucose, POC 81 71 - 98 mg/dL [facility] ([place]) Blood 01/30/2022 3:19 AM CDT 01/30/2022 3:19 AM CDT Nasim Charles MD LAB POCT ORDERABLES - DEVICE Final Result Performing Organization Address [facility] Co de Phone Number TOMY SAHU ([place]) [address] [facility] [email or web address] [address] * (ABNORMAL) POCT glucose (01/29/2022 11:37 PM CDT) Glucose, POC 172(H) 71 - 98 mg/dL [facility] ([place]) Blood 01/29/2022 11:3 7 PM CDT 01/29/2022 11:37 PM CDT Nasim Charles MD LAB POCT ORDERABLES - DEVICE Final Result Performing Organization Address City/[facility]/ZIP Co de Phone Number TOMY SAHU ([place]) 1 [facility] [email or web address] [address] * TSH reflex to free T4 (01/29/2022 10:34 PM CDT) Pathologist [facility] TSH 1.69 0.30 - 4.20 mcIUnit/mL TOMY SAHU ([place]) Blood 01/29/2022 10:3 4 PM CDT 01/29/2022 10:41 PM CDT Gio Sewell MD LAB BLOOD ORDERABLES Final Re sult TOMY SAHU ([place]) 1 [place] [address] * (ABNORMAL) Hemoglobin A1c (01/29/2022 10:34 PM CDT) [facility] Hgb A1C 6.6(H) 4.0 - 5.6 % TOMY SAHU ([place]) Estimated Average Glucose 143 mg/dL TOMY SAHU ([place]) Comment: The ADA recommends reporting an estimated Average Glucose (eAG) with all Hemoglobin A1c results using the equation derived from a study of 507 normal and diabetic adults. ??Minority populations were underrepresented and children were not included. ?? (Diabetes Care 31:1807-7113, 2008). ??The eAG is not equivalent to a fasting glucose. Blood 01/29/2022 10:3 4 PM CDT 01/29/2022 10:41 PM CDT us Gio Sewell MD LAB BLOOD ORDERABLES Final Re sult TOMY SAHU ([place]) 1 [place] [address] * Lipase (01/29/2022 10:34 PM CDT) Pathologist [facility] Lipase 12 10 - 99 Units/L TOMY SAHU ([place]) Blood 01/29/2022 10:3 4 PM CDT 01/29/2022 10:41 PM CDT us Gio Sewell MD LAB BLOOD ORDERABLES Final Re sult TOMY SAHU ([place]) 1 [facility] [place] [address] * (ABNORMAL) POCT glucose (01/29/2022 9:04 PM CDT) Glucose, POC 261(H) 71 - 98 mg/dL TOMY [facility] ([place]) Comment:Glu2: RN/MD Notified Blood 01/29/2022 9:04 PM CDT 01/29/2022 9:04 PM CDT us Nasim Charles MD LAB POCT ORDERABLES - DEVICE Final Result Performing Organization Address [facility] Co de Phone Number TOMY SAHU ([place]) 1 [facility] [place] [address] * (ABNORMAL) Urinalysis, microscopic only (01/29/2022 6:13 PM CDT) WBC, ur 0-5 0 - 5 /HPF [facility] ([place]) RBC, ur 0-2 0 - 2 /HPF [facility] ([place]) Epithelial cells, squamous, ur 1-5 0 - 5 /HPF [facility] ([place]) Mucous, ur Present(A) [facility] ([place] Culture Reflex Comment Reflex conditions for urine culture (WBC >10) not met. [facility] ([place]) Urine 01/29/2022 6:13 PM CDT 01/29/2022 6:17 PM CDT us Mukesh Champion MD LAB URINE ORDERABLES Final R esult Performing Organization Address [facility]/ZIP Co de Phone Number TOMY SAHU ([place]) 1 [facility] [email or web address] [address] * Drugs of Abuse Screen, Urine without Confirmation (01/29/2022 6:13 PM CDT) [facility] Amphetamine, ur Not Detected CutOff 500ng/mL CERNER [...] 2018. Methadone, ur Not Detected CutOff 300ng/mL [facility] ([place]) Comment: Interpretive Data - Methadone: ??Samples containing greater than 300 ng/mL d,l-methadone or other cross-reacting compounds are reported as positive. ??False positive and false negative results are possible. Current Interpretive Data was last reviewed 2018. Opiates, ur Not Detected CutOff 300ng/mL TOMY SAHU ([place]) Comment: Interpretive Data - Opiates: ??Samples containing greater than 300 ng/mL morphine or other cross-reacting compounds are reported as positive. ??False positive and false negative results are possible. Current Interpretive Data was last reviewed 2018. Oxycodone, ur Not Detected CutOff 100ng/mL TOMY SAHU ([place]) Comment: Interpretive Data - Oxycodone: ??Samples containing greater than 100 ng/mL oxycodone or other cross-reacting compounds are reported as positive. ??False positive and false negative results are possible. ?? Current Interpretive Data was last reviewed 2018. Phencyclidine, ur Not Detected CutOff 25 ng/mL TOMY SAHU ([place]) Comment: Interpretive Data - Phencyclidine: ??Samples containing greater than 25 ng/mL phencyclidine or other cross-reacting compounds are reported as positive. ??False positive and false negative results are possible. ?? Current Interpretive Data was last reviewed 2018. Urine Creatinine 61 mg/dL ASHLEY SAHU ([place]) Comment: Interpretive Data Urine Creatinine: < 10 mg/dL is extremely dilute = or > 10 but < 20 mg/dL is dilute = or > 20 mg/dL is normal Current Interpretive Data was last revised on 2017. Urine 01/29/2022 6:13 PM CDT 01/29/2022 6:17 PM CDT Narrative TOMY SAHU ([place]) - 01/29/2022 6:48 PM CDT Drug of Abuse screening is performed by immunoassay for medical purposes only. ??This is not to be used for Pain Management purposes. us Mukesh Champion MD LAB URINE ORDERABLES Final R esult TOMY SAHU ([place]) 1 [facility] [email or web address] [address] * (ABNORMAL) Urinalysis reflex to microscopic and culture Urine (01/29/2022 6:13 PM CDT) Color, ur Yellow Yellow [facility] ([place]) Clarity, ur Clear Clear [facility] ([place]) Specific gravity, ur 1.034(H) 1.003 - 1.030 [facility] ([place]) pH, urine 7.5 [facility] ([place]) Protein, ur ql Negative Negative [facility] ([place]) Glucose, ur ql 4+(A) Negative [facility] ([place]) Ketones, ur 3+(A) Negative [facility] ([place]) Bilirubin, ur Negative Negative [facility] ([place]) Blood, ur Negative Negative [facility] ([place]) Urobilinogen, ur <2.0 <2.0 mg/dL [facility] ([place]) Nitrite, ur Negative Negative [facility] ([place]) Leukocyte esterase, ur 1+(A) Negative [facility] ([place]) UA reflex comment Reflex to microscopic UA will be performed. [facility] ([place]) Urine 01/29/2022 6:13 PM CDT 01/29/2022 6:17 PM CDT Narrative [facility] ([place]) - 01/29/2022 6:23 PM CDT ?? Urine pH is affected by diet, medications, systemic acid-base disturbances, and renal tubular function. ??pH may affect urinary stone formation. ??For example, urine pH below 6.0 may help reduce the tendency for calcium phosphate stones and pH greater than 6.0 may reduce the tendency for uric acid stone formation. Source: [employer]. Last revised 05-13-2017 us Mukesh Champion MD LAB MICROBIOLOGY - GENERAL O RDERAETTA Final Result TOMY SAHU ([place]) 1 [facility] [place] [address] * CT Abdomen Pelvis WO Contrast (01/29/2022 4:44 PM CDT) Anatomical Region Laterality Modality Body N/A Computed Tomogra phy 01/29/2022 4:53 PM CDT Narrative 01/29/2022 4:59 PM CDT EXAM DESCRIPTION: ?? CT ABDOMEN PELVIS WO CONTRAST REASON FOR STUDY: ?? Abdominal pain, acute, nonlocalized ?? Nausea and vomiting since this morning ? TECHNIQUE: CT scan of the abdomen and pelvis performed without intravenous and ??without ??oral contrast using helical scanning technique. Reconstructed coronal and sagittal MPR images reviewed. All images stored on PACS. ?? Automated exposure control was used as a dose optimization technique for this examination. COMPARISON: ?? 05/29/2018 FINDINGS: The sensitivity for detection of visceral lesions is diminished without the use of intravenous contrast. LOWER CHEST: ?? No consolidations or effusions. ??0.3 cm soft tissue density nodule right lower lobe axial image 25 of series 2 is unchanged from 2019 as evidence of a benign process, likely granuloma. LIVER: ?? Normal size. ??Subtle fatty infiltrative changes along the falciform ligament. GALLBLADDER: ?? Normally distended BILE DUCTS: ?? No intrahepatic or extrahepatic ductal dilatation. SPLEEN: ?? Normal size. ??No focal lesions. PANCREAS: ?? No identified cystic or solid masses. ??No significant calcifications. No adjacent inflammation or peripancreatic fluid collections. Pancreatic duct not dilated. ADRENALS: ?? Normal. KIDNEYS/URINARY TRACT: ?? No identified significant cystic or solid masses. No stones. No hydronephrosis or hydroureter. ?Urinary bladder is unremarkable. GI: ?? No dilated bowel loops. No obvious wall thickening. ??Normal appendix. ?? No significant diverticular disease. PERITONEUM: ?? No ascites or free air. RETROPERITONEUM: ?? No mass or adenopathy. REPRODUCTIVE: ?? No significant abnormality. VASCULATURE: ?? No abdominal aortic aneurysm. MUSCULOSKELETAL: ?? No significant abnormality. OTHER: ?? No other abnormality. IMPRESSION: ??No acute finding. REFERENCE: Unless otherwise specified, no follow-up imaging is recommended for incidental renal and adrenal lesions per consensus recommendations based on imaging criteria. Further lab evaluation could be pursued based on clinical findings. Management of the Incidental Renal Mass on CT: A White Paper of the ACR Incidental Findings Committee. J Am [place] Radiol. 2018 Jun;15(2):264-273. Management of Incidental Adrenal Masses: A White Paper of the ACR Incidental Findings Committee. J Am [place] Radiol. 2017 Dec;14(8):2808-8926. THIS IS AN ELECTRONICALLY VERIFIED FINAL REPORT 01/29/2022 4:59 PM - Electronically signed by ??Dung Loyola M.D. RB: TORSTEN D: ??01/29/2022 4:59 PM T: ??01/29/2022 4:59 PM Report ID: [id number] Reading Location: ??[id number] Procedure Note Dung Loyola MD - 01/29/2022 EXAM DESCRIPTION: CT ABDOMEN PELVIS WO CONTRAST REASON FOR STUDY: Abdominal pain, acute, nonlocalized Nausea and vomiting since this morning TECHNIQUE: CT scan of the abdomen and pelvis performed without intravenousand without oral contrast using helical scanning technique. Reconstructed coronal and sagittal MPR images reviewed. All images stored on PACS. Automated exposure control was used as a dose optimization technique forthis examination. COMPARISON: 05/29/2018 FINDINGS: The sensitivity for detection of visceral lesions is diminished withoutthe use of intravenous contrast. LOWER CHEST: No consolidations or effusions. 0.3 cm soft tissue density nodule right lower lobe axial image 25 of series 2 is unchanged from 2019as evidence of a benign process, likely granuloma. LIVER: Normal size. Subtle fatty infiltrative changes along thefalciform ligament. GALLBLADDER: Normally distended BILE DUCTS: No intrahepatic or extrahepatic ductal dilatation. SPLEEN: Normal size. No focal lesions. PANCREAS: No identified cystic or solid masses. No significant calcifications. No adjacent inflammation or peripancreatic fluidcollections. Pancreatic duct not dilated. ADRENALS: Normal. KIDNEYS/URINARY TRACT: No identified significant cystic or solid masses.No stones. No hydronephrosis or hydroureter. Urinary bladder isunremarkable. GI: No dilated bowel loops. No obvious wall thickening. Normalappendix. No significant diverticular disease. PERITONEUM: No ascites or free air. RETROPERITONEUM: No mass or adenopathy. REPRODUCTIVE: No significant abnormality. VASCULATURE: No abdominal aortic aneurysm. MUSCULOSKELETAL: No significant abnormality. OTHER: No other abnormality. IMPRESSION: No acute finding. REFERENCE: Unless otherwise specified, no follow-up imaging is recommendedfor incidental renal and adrenal lesions per consensus recommendations basedon imaging criteria. Further lab evaluation could be pursued based onclinical findings. Management of the Incidental Renal Mass on CT: A White Paper of the ACR Incidental Findings Committee. J Am [place] Radiol. 2018 Jun;15(2):264-273. Management of Incidental Adrenal Masses: A White Paper of the ACRIncidental Findings Committee. J Am [place] Radiol. 2017 Dec;14(8):8102-6411. THIS IS AN ELECTRONICALLY VERIFIED FINAL REPORT 01/29/2022 4:59 PM - Electronically signed by Dung Loyola M.D. RB: TORSTEN Report ID: [id number] Reading Location: [place] [address] Mukesh Champion MD IMG CT PROCEDURES Final Resu lt * (ABNORMAL) Blood gas, venous (01/29/2022 3:51 PM CDT) pH, Venous 7.47(H) 7.32 - 7.43 [facility] ([place]) PCO2, Venous 31(L) 40 - 50 mmHg [facility] ([place]) PO2, Venous 135 mmHg [facility] ([place]) Comment: Interpretive Data No Reference Range Established Current Interpretive Data was last revised on 2017. HCO3 Venous, Calculated 22 20 - 30 mmol/L [facility] ([place]) BE, venous -1 mmol/L [facility] ([place]) Comment: Interpretive Data No Reference Range Established Current Interpretive Data was last revised on 2017. Blood 01/29/2022 3:51 PM CDT 01/29/2022 3:54 PM CDT Mukesh Champion MD LAB BLOOD ORDERABLES Final R esult TOMY SAHU ([place]) 1 [facility] Department of Laboratories [place], [place] [id number] * Sepsis Lactate w/ Reflex (01/29/2022 3:51 PM CDT) Sepsis Lactate 1.6 0.7 - 2.0 mmol/L TOMY SAHU ([place]) Blood 01/29/2022 3:51 PM CDT 01/29/2022 3:54 PM CDT Mukesh Champion MD LAB BLOOD ORDERABLES Final R esult Performing Organization Address [facility] Co de Phone Number TOMY SAHU ([place]) 1 [facility] [email or web address] [address] * hCG, blood, quantitative (01/29/2022 1:37 PM CDT) Pathologist [facility] hCG, quant <5.0 0.0 - 5.0 IUnits/L TOMY LUIS ALBERTO ([place]) Comment: Interpretive Data Non- Female premenopausal: < [...] Data was last revised on 2021. Blood 01/29/2022 1:37 PM CDT 01/29/2022 2:48 PM CDT Mukesh Champion MD LAB BLOOD ORDERABLES Edited Result - Final TOMY SAHU ([place]) 1 [facility] [email or web address] [address] * eGFR (01/29/2022 1:37 PM CDT) [facility] eGFR 137 mL/min/1. 73 m2 [facility] ([place]) Comment: Interpretive Data Reference Interval [...] interpretive data was last reviewed 2021. Blood 01/29/2022 1:37 PM CDT 01/29/2022 1:40 PM CDT us Dre Mancuso MD LAB BLOOD ORDERABLES Final Res ult TOMY SAHU ([place]) 1 [facility] [place] [address] * (ABNORMAL) Differential, auto (01/29/2022 1:37 PM CDT) Pathologist [facility] Neutrophil abs 7.4(H) 1.7 - 6.5 K/cumm [facility] ([place]) Imm gran abs 0.0 0.0 - 0.1 K/cumm [facility] ([place]) Lymphocyte abs 1.1 0.8 - 3.3 K/cumm [facility] ([place]) Monocyte abs 0.5 0.2 - 0.8 K/cumm [facility] ([place]) Eosinophil abs 0.0 0.0 - 0.5 K/cumm [facility] ([place]) Basophil abs 0.0 0.0 - 0.1 K/cumm [facility] ([place]) Neutrophil pct 81.7 % [facility] R [facility] ([place]) Comment: Interpretive Data Percent cell count reference ranges are not reported, since discordance with absolute values may lead to misinterpretation of CBC data. Current Interpretive Data was last revised on 2017. Imm gran pct 0.4 % [facility] ([place]) Comment: Interpretive Data Percent cell count reference ranges are not reported, since discordance with absolute values may lead to misinterpretation of CBC data. Current Interpretive Data was last revised on 2017. Lymphocyte pct 12.2 % [facility] ([place]) Comment: Interpretive Data Percent cell count reference ranges are not reported, since discordance with absolute values may lead to misinterpretation of CBC data. Current Interpretive Data was last revised on 2017. Monocyte pct 5.4 % [facility] ([place]) Comment: Interpretive Data [...] Data was last revised on 2017. Blood 01/29/2022 1:37 PM CDT 01/29/2022 1:40 PM CDT us Dre Mancuso MD LAB BLOOD ORDERABLES Final Res ult [facility] ([place]) 1 [facility] [place] [address] * (ABNORMAL) Comprehensive metabolic panel (01/29/2022 1:37 PM CDT) Sodium 137 135 - 145 mmol/L [facility] ([place]) Potassium, pl 3.8 3.3 - 4.9 mmol/L [facility] ([place]) Chloride 101 97 - 110 mmol/L [facility] ([place]) CO2 23 22 - 32 mmol/L [facility] ([place]) Anion gap 13 2 - 15 mmol/L [facility] ([place]) BUN 17 8 - 25 mg/dL [facility] ([place]) Creatinine 0.45(L) 0.60 - 1.10 mg/dL [facility] ([place]) Glucose 218(H) 70 - 199 mg/dL [facility] ([place]) [...] interpretive data was last revised 2017. Calcium 9.8 8.5 - 10.3 mg/dL [facility] ([place]) Bilirubin, total 0.4 0.1 - 1.2 mg/dL [facility] ([place]) Protein, pl 7.4 6.5 - 8.5 g/dL [facility] ([place]) Albumin 4.5 3.5 - 5.0 g/dL [facility] ([place]) Alk phos 74 40 - 130 Units/L [facility] ([place]) ALT 21 7 - 45 Units/L [facility] ([place]) AST 13 10 - 45 Units/L [facility] ([place]) Blood 01/29/2022 1:37 PM CDT 01/29/2022 1:40 PM CDT Dre Mancuso MD LAB BLOOD ORDERABLES Final Res ult [facility] ([place]) 1 [facility] [place] [address] * (ABNORMAL) CBC with auto differential (01/29/2022 1:37 PM CDT) WBC 9.0 3.8 - 9.9 K/cumm [facility] ([place]) Hgb 13.3 11.9 - 15.5 g/dL [facility] ([place]) Hct 39.0 35.6 - 45.5 % [facility] ([place]) Plt 520(H) 150 - 400 K/cumm [facility] ([place]) MPV 8.9(L) 9.1 - 12.3 fL [facility] ([place] RBC 4.60 3.90 - 5.20 M/cumm [facility] ([place]) MCV 84.8 81.3 - 96.4 fL [facility] ([place]) MCH 28.9 27.1 - 33.3 pg [facility] ([place]) MCHC 34.1 32.3 - 35.7 g/dL [facility] ([place]) RDW CV 14.7 11.1 - 14.9 % [facility] ([place]) RDW SD 45.5 35.7 - 48.1 fL [facility] NRBC abs 0.00 0.00 - 0.01 K/cumm [facility] ([place] Blood 01/29/2022 1:37 PM CDT 01/29/2022 1:40 PM CDT Dre Mancuso MD LAB BLOOD ORDERABLES Final Res ult TOMY SAHU ([place]) 1 [facility] [place] [address] * (ABNORMAL) POCT glucose (01/29/2022 1:13 PM CDT) Glucose, POC 196(H) 71 - 98 mg/dL [facility] ([place]) Blood 01/29/2022 1:13 PM CDT 01/29/2022 1:13 PM CDT us Notinfile Unknown LAB POCT ORDERABLES - DEVICE F inal Result TOMY SAHU ([place]) 1 [facility] [place] [address] documented in this encounter Visit Diagnoses Diagnosis Nausea and vomiting, unspecified vomiting type- Primary Nausea and vomiting, unspecified vomiting type Diabetic gastroparesis (CMS/HCC) (HCC) Type II or unspecified type diabetes mellitus with neurological manifestations, not stated as uncontrolled Dehydration Diabetic gastroparesis (CMS/HCC) (HCC) Type II or unspecified type diabetes mellitus with neurological manifestations, not stated as uncontrolled Tachycardia Unspecified tachycardia Type 1 diabetes mellitus with hyperglycemia (HCC) documented in this encounter Admitting Diagnoses Diagnosis Nausea and vomiting, unspecified vomiting type Diabetic gastroparesis (CMS/HCC) (HCC) Type II or unspecified type diabetes mellitus with neurological manifestations, not stated as uncontrolled documented in this encounter Administered Medications Inactive Administered Medications - up to 3 most recent administrations Medication Order MAR Action Action Date Dose Rate Site dextrose (D10W) 10% bolus 250 mL 250 mL, intravenous, at 1,000 mL/hr, Administer over 15 Minutes, Every 15 min PRN, blood glucose less than 70 mg/dL and UNABLE to swallow/take PO glucose/juice., Starting on Nurys 01/29/22 at 1830, After treatment for hypoglycemia, recheck BG followed [...] glucose less than 70 mg/dL, Starting on Nurys 01/29/22 at 1830, If patient is alert and able to [...] of hypoglycemia., Indications: hypoglycemic disorderIndications:hypo glycemic disorder enoxaparin (LOVENOX) syringe 40 mg 40 mg, subcutaneous, Daily (for enoxaparin), First dose on Wed01/30/22 at 2100, Indications: Deep Vein Thrombosis PreventionIndications:De ep Vein Thrombosis Prevention insulin glargine (LANTUS, BASAGLAR, SEMGLEE) 100 unit/mL (3 mL) pen injection 20 Units 20 Units, subcutaneous, Nightly, First dose on Nurys 01/29/22 at 2215, Attach new pen needle required for each administration. Each new pen needle must be primed with 2 units prior to administration. Do not mix with other insulins. Given 01/29/2022 10:07 PM CDT 20 Units Left Upper Arm insulin lispro (HumaLOG, ADMELOG) 100 unit/mL pen injection 0-5 Units 0-5 Units, subcutaneous, Every 4 hours scheduled, First dose on Nurys 01/29/22 at 2000, Blood glucose mg/dL: 149 or [...] administration., Indications: Diabetes MellitusIndications:Diab etes Mellitus Given 01/30/2022 12:29 PM CDT 1 Units Left Lower Abdomen Given 01/30/2022 12:28 AM CDT 1 Units R ight Upper Arm Given 01/29/2022 9:17 PM CDT 3 Units Le ft Upper Arm metoclopramide (REGLAN) injection 10 mg 10 mg, intravenous, Once, On Nurys 01/29/22 at 1549, For 1 dose Given 01/29/2022 4:17 PM CDT 10 mg metoclopramide (REGLAN) injection 10 mg 10 mg, intravenous, Every 6 hours scheduled, First dose on Wed01/30/22 at 0000 Given 01/30/2022 7:59 AM CDT 10 mg ondansetron (ZOFRAN) injection 4 mg 4 mg, intravenous, Administer over 2 Minutes, Once, On Nurys 01/29/22 at 1444, For 1 dose Given 01/29/2022 2:52 PM CDT 4 mg ondansetron (ZOFRAN) injection 4 mg 4 mg, intravenous, Administer over 2 Minutes, Every 6 hours PRN, nausea, vomiting, if not tolerating PO, Starting on Nurys 01/29/22 at 2138, Indications: Nausea and VomitingIndications:Nausea and Vomiting ondansetron ODT (ZOFRAN-ODT) disintegrating tablet 4 mg 4 mg, oral, Every 6 hours PRN, nausea, vomiting, Starting on Nurys 01/29/22 at 2138, Indications: Nausea and VomitingIndications:Nausea and Vomiting sodium chloride 0.9% bolus 1,000 mL 1,000 mL, intravenous, Once, On Nurys 01/29/22 at 1444, For 1 dose New Bag 01/29/2022 2:53 PM CDT 1,000 mL sodium chloride 0.9% infusion 150 mL/hr, intravenous, Continuous, Starting on Nurys 01/29/22 at 1915 New Bag 01/30/2022 8:00 AM CDT 150 mL/hr 150 mL/hr New Bag 01/29/2022 9:17 PM CDT 150 mL/hr 150 mL/hr documented in this encounter Discontinued Medications Medication Sig Discontinue Reason Start Date End Da te OneTouch Verio test strips strip USE 1 STRIP TO CHECK GLUCOSE 4 TIMES DAILY 12/01/2019 01/29/2022 TechLITE Insulin Syr Half Unit 0.3 mL 31 gauge x 5/16 syringe USE ONE NEW SYRINGE 4 TIMES 02/21/2020 01/29/2022 insulin syringe-needle U-100 0.3 mL 31 gauge x 5/16 syringe 1 Syringe 01/29/2022 insulin glargine (insulin glargine) 100 unit/mL (3 mL) pen for injection Inject 10 Units under the skin every 12 (twelve) hours Stop Taking at Discharge 07/23/2021 01/30/2022 documented as of this encounter Historical Medications * This list may reflect changes made after this encounter. insulin glargine 100 unit/mL vial for injection Inject 25 Units under the skin nightly 07/15/2022 added in this encounter Active and Recently Administered Medications Times are shown in CDT. Scheduled Medication Order 01/28/2022 01/29/2022 01/30/2022 enoxaparin (LOVENOX) syringe 40 mg 40 mg, subcutaneous, Daily (for enoxaparin), First dose on Wed01/30/22 at 2100, Indications: Deep Vein Thrombosis Prevention insulin glargine (LANTUS, BASAGLAR, SEMGLEE) 100 unit/mL (3 mL) pen injection 20 Units 20 Units, subcutaneous, Nightly, First dose on Nurys 01/29/22 at 2215, Attach new pen needle required for each administration. Each new pen needle must be primed with 2 units prior to administration. Do not mix with other insulins. 2206 (Given - Provider: Heriberto Soliz RN) insulin lispro (HumaLOG, ADMELOG) 100 unit/mL pen injection 0-5 Units 0-5 Units, subcutaneous, Every 4 hours scheduled, First dose on Nurys 01/29/22 at 2000, Blood glucose mg/dL: 149 or [...] units prior to administration., Indications: Diabetes Mellitus 2116 (Given - Provider: Heriberto Soliz RN) 0028 (Given - Provider: Heriberto Soliz RN - Comment: [phone] (Not Given - Provider: Heriberto Soliz RN - Reason: Order parameters not met - Comment: [phone] (Not Given - Provider: Charisma Bustos RN - Reason: Order parameters not met - Comment: [phone] (Given - Provider: Charisma Bustos RN - Comment: [phone]) metoclopramide (REGLAN) injection 10 mg (COMPLETED) 10 mg, intravenous, Once, On Nurys 01/29/22 at 1549, For 1 dose 1617 (Given - Provider: Juancho Lu) metoclopramide (REGLAN) injection 10 mg 10 mg, intravenous, Every 6 hours scheduled, First dose on Wed01/30/22 at 0000 0029 (Not Given - Provider: Heriberto Soliz RN - Reason: Patient/family refused)[phone] (Given - Provider: Charisma Bustos RN)1231 (Not Given - Provider: Charisma Bustos RN - Reason: Patient/family refused) ondansetron (ZOFRAN) injection 4 mg (COMPLETED) 4 mg, intravenous, Administer over 2 Minutes, Once, On Nurys 01/29/22 at 1444, For 1 dose 1452 (Given - Provider: Pato Giles RN) sodium chloride 0.9% bolus 1,000 mL (COMPLETED) 1,000 mL, intravenous, Once, On Nurys 01/29/22 at 1444, For 1 dose 1453 (New Bag - Provider: Pato Giles RN)1802 (Stopped - Provider: Juancho Lu) Continuous Medication Order 01/28/2022 01/29/2022 01/30/2022 sodium chloride 0.9% infusion 150 mL/hr, intravenous, Continuous, Starting on Wed01/29/22 at 1915 2117 (New Bag - Provider: Heriberto Soliz RN) [phone] (New Bag - Provider: Charisma Bustos, MARY)[phone] (Stopped - Provider: Charisma Bustos RN) PRN Medication Order 01/28/2022 01/29/2022 01/30/2022 dextrose (D10W) 10% bolus 250 mL(Linked Group 1) 250 mL, intravenous, at 1,000 mL/hr, Administer over 15 Minutes, Every 15 min PRN, blood glucose less than 70 mg/dL and UNABLE to swallow/take PO glucose/juice., Starting on Wed01/29/22 at 1830, After treatment for hypoglycemia, recheck BG followed [...] glucose less than 70 mg/dL, Starting on Nurys 01/29/22 at 1830, If patient is alert and able to [...] each episode of hypoglycemia., Indications: hypoglycemic disorder docusate sodium (COLACE) capsule 100 mg 100 mg, oral, 2 times daily PRN, constipation, Starting on Wed01/29/22 at 2138, Indications: constipation glucagon injection 1 mg 1 mg, intramuscular, Every 30 min PRN, low blood sugar, blood glucose less than 70 mg/dL AND no IV access AND unable to take PO glucose/juice., Starting on Wed01/29/22 at 1830, After Glucagon is administered, position patient on [...] 1 mL SWFI. Use immediately following reconstitution. ondansetron (ZOFRAN) injection 4 mg(Linked Group 2) 4 mg, intravenous, Administer over 2 Minutes, Every 6 hours PRN, nausea, vomiting, if not tolerating PO, Starting on Nurys 01/29/22 at 2138, Indications: Nausea and Vomiting ondansetron ODT (ZOFRAN-ODT) disintegrating tablet 4 mg(Linked Group 2) 4 mg, oral, Every 6 hours PRN, nausea, vomiting, Starting on Nurys 01/29/22 at 2138, Indications: Nausea and Vomiting Linked Groups Order Group 1: dextrose gel in packet 15 gJump to med 15 g, oral, Every 15 min PRN, low blood sugar, blood glucose less than 70 mg/dL, Starting on Nurys 01/29/22 at 1830, If patient is alert and able to [...] UNABLE to swallow/take PO glucose/juice., Starting on Nurys 01/29/22 at 1830, After treatment for hypoglycemia, recheck BG followed by treatment every 15 minutes until the BG is greater than 100 mg/dL. Then check BG 1 hour post treatment. If BG is less than 100 mg/dL, repeat Q15 minute BG checks and treatment. Call MD for each episode of hypoglycemia., Indications: hypoglycemic disorder Group 2: ondansetron ODT (ZOFRAN-ODT) disintegrating tablet 4 mgJump to med 4 mg, oral, Every 6 hours PRN, nausea, vomiting, Starting on Nurys 01/29/22 at 2138, Indications: Nausea and Vomiting Or ondansetron (ZOFRAN) injection 4 mgJump to med 4 mg, intravenous, Administer over 2 Minutes, Every 6 hours PRN, nausea, vomiting, if not tolerating PO, Starting on Nurys 01/29/22 at 2138, Indications: Nausea and Vomiting documented in this encounter Orders Medications Ordered That Evan ht Not Have Been Administered Count Last Ordered Date First Ordered Date enoxaparin (LOVENOX) syringe 40 mg 2021 dextrose (D10W) 10% bolus 250 mL 01/30/20 dextrose gel in packet 15 g 01/29/2022 docusate sodium (COLACE) capsule 100 mg 1 0 01/29/2022 glucagon injection 1 mg 1 01/29/2022 ondansetron (ZOFRAN) injection 4 mg 2 01/29 ondansetron ODT (ZOFRAN-ODT) disintegrating tablet 4 mg 1 01/29/2022 Lab Orders Without Results Count Last Ordered D ate First Ordered Date POCT GLUCOSE DEVICE 5 01/30/2022 01/30/20 Diet Count Last Ordered Date First Orde red Date ADULT DISCHARGE DIET 1 01/30/2022 Nursing Count Last Ordered Date First Orde red Date DISCHARGE ACTIVITY 1 01/30/2022 DISCHARGE CALL PROVIDER 6 01/30/2022 WEIGH PATIENT 2 01/29/2022 Admission Count Last Ordered Date First Orde red Date ADMIT TO INPATIENT 1 01/29/2022 Discharge Count Last Ordered Date First Orde red Date DISCHARGE PATIENT 1 01/30/2022 CORE MEASURES Count Last Ordered Date First Ord ered Date REASON FOR NO VTE PROPHYLAXIS AT ADMISSION 2 01/29/2022 documented in this encounter Care Teams Monument Mason Relationship Specialty Start Date End Date No, Physician PCP - General 11/21/21 02/01/22 Warren Phillips MD Consulting Physician Gastroenterology 02/16/19 Miscellaneous, Not In File 07/23/21 Nicole Lopez DO [address] [place] [address] Resident Family Medicine 11/22/21 Naomi Sanches MD [address] [place] [address] Referring Physician General Surgery 11/22/21 documented as of this encounter
--- OUTSIDE RECORDS SUMMARY | 2024-05-10 18:37 | XMS_ITS | Encounter Summary ---
Author Organization [facility] Healthcare Address [address] [place] [address] Care Team Providers Care Plush Brusher Name Role Phone Warren Phillips MD Unavailable No, Physician Primary Care Provider [phone] Miscellaneous, Not In File Unavailable Unava ilable Encounter Details Date Type Department Care Team (Latest Contact Info) Description 10/24/2021 7:29 AM CDT - 10/24/2021 8:00 AM CDT Hospital Encounter [facility] Discharge Disposition: Discharge to home or self care Social History Tobacco Use Types Packs/Day Years Used Date Smoking Tobacco: Never Smokeless Tobacco: Never Alcohol Use Standard Drinks/Week Comments Not Currently 0 (1 standard drink = 0.6 oz pur e alcohol) AUDIT-C Answer Date Recorded Q1: How often do you have a drink containing alc ohol? 2-4 times a month 07/20/2021 Q2: How many drinks containi ng alcohol do you have on a typical day when you are drinking? 1 or 2 07/20/2021 Q3: How often do you have si x or more drinks on one occasion? Never 07/20/2021 PHQ-2 Answer Date Recorded PHQ-2 Total Score (If total score is 3 or more points, staff should administer the PHQ-9) 0 03/13/2020 Comments Unknown Sex and Gender Information Value Date Recorded Sex Assigned at Not on file Legal Sex Female 3:13 AM [employer] Gender Identity Not on file Sexual Orientation Not on file documented as of this encounter Medications at Time of Discharge [...] or self care documented in this encounter Plan of Treatment Not on file documented as of this encounter Visit Diagnoses Not on filedocumented in this encounter Care Teams Plush Brusher Relationship Specialty Start Date End Date No, Physician PCP - General 07/20/21 11/19/21 Warren Phillips MD Consulting Physician Gastroenterology 02/16/19 Miscellaneous, Not In File 07/23/21 documented as of this encounter
--- OUTSIDE RECORDS SUMMARY | 2024-05-10 18:37 | XMS_ITS | Encounter Summary ---
Author Organization [facility] Address [address] [place] [address] Care Team Providers Care Shipping Support Clerk Name Role Phone Warren Phillips MD Unavailable [phone] No, Physician Primary Care Provider Miscellaneous, Not In File Unavailable Unava ilable Nicole Lopez DO Primary Care Provide r Deena, Physician Primary Care Provider [phone] Nicole Lopez DO Unavailable Naomi Sanches MD Unavailable Reason for Visit * Reason Comments Hyperglycemia Vomiting Encounter Details Date Type Department Care Team (Late st Contact Info) Description 11/19/2021 8:24 PM CDT - 11/22/2021 2:16 PM CDT Hospital Encounter [facility] [address] [place] [address] Miryam Medley MD [address] [facility] [place] [address] Alesia Kraus MD [address] [facility] [place] [address] Farida Chaney MD [address] [place] [address] [address] [place] [address] Winter Pickering DO [address] [place] [address] Vomiting, unspecified vomiting type, unspecified whether nausea present (Primary Dx); Elevated lactic acid level; Hyperglycemia; Tachycardia Discharge Disposition: Discharge to home or self [...] on file Legal 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 Gender Identity Not on file Sexual Orientation Not on file documented as of this encounter Last Filed Vital Signs Vital Sign Reading Time Taken Comments Blood Pressure 120/73 11/22/2021 11:06 AM CDT Pulse 104 11/22/2021 11:06 AM CDT Temperature 36.3 ??C (97.3 ??F) 11/22/2021 11:06 AM C DT Respiratory Rate 20 11/22/2021 11:06 AM CDT Oxygen Saturation 100% 11/22/2021 11:06 AM CDT Inhaled Oxygen Concentration - - Weight 67.8 kg (149 lb 8 oz) 11/22/2021 1:28 PM CDT Height 154.9 cm (5' 0.98 ) 11/22/2021 1:28 PM CD T Body Mass Index 28.26 11/22/2021 1:28 PM CDT documented in this encounter Discharge Diagnoses Diagnosis Type 1 diabetes mellitus with ketoacidosis without coma (HCC) - TYPE 1 DIABETES MELLITUS WITH KETOACIDOSIS WITHOUT COMA Hypo-osmolality and hyponatremia - HYPO-OSMOLALITY AND HYPONATREMIA Systemic inflammatory response syndrome (sirs) of non-infectious origin without acute organ dysfunction (HCC) - SYSTEMIC INFLAMMATORY RESPONSE SYNDROME (SIRS) OF NON-INFECTIOUS ORIGIN WITHOUT ACUTE ORGAN DYSFUNCT 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 (HCC) - TYPE 1 DIABETES MELLITUS WITH DIABETIC AUTONOMIC (POLY)NEUROPATHY Gastroparesis - GASTROPARESIS Dehydration - DEHYDRATION Constipation, unspecified - CONSTIPATION, UNSPECIFIED Contact with and (suspected) exposure to covid-19 - CONTACT WITH AND (SUSPECTED) EXPOSURE TO 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) - SNF (CURRENT) USE OF INSULIN documented in this encounter Discharge Summaries * Nicole Lopez DO - 11/20/2021 3:49 PM CDT Inpatient Discharge Summary Patient Name - Karina Fuchs Patient Age - 26 yrs Patient - [id number] [facility] - [id number] Document Creation Date: 11/20/2021 Admitting Provider, MD: Alesia Kraus MD Discharge Provider, MD: Farida Chaney MD Primary Care Physician at Discharge: Nicole Lopez DO [phone] Admission Date: 11/19/2021 Discharge Date/time: 11/22/2021 Admission Location: [facility] LOS - LOS: 0 days DETAILS OF HOSPITAL STAY Hospital Problems/Diagnoses Principal Problem: Vomiting Active Problems: Uncontrolled type 1 diabetes mellitus with hyperglycemia (CMS/HCC) (HCC) Diabetic gastroparesis (CMS/HCC) (HCC) Diabetic ketoacidosis without coma associated with type 1 diabetes mellitus (CMS/HCC) (HCC) Tachycardia Leukocytosis Reason for Hospitalization: nausea and vomiting Hospital Course: This is a 26-year-old female with history of type 1 diabetes and DKA presented to ED with nausea and vomiting. ?? In the ED, she was found to be tachycardic with elevated white blood cell count at 12.2 and elevated lactate at 2.4. Blood sugar was 322. 5 units of insulin was given. HCG was negative. 2 L of fluidswas given in the ED along with droperidol. D-dimer and CRP was normal. Negative for flu and COVID-19. Saturating well on room air. Patient states she was started on a new meal time insulin regimen in the last few weeks. Has been having trouble with adherence to the new regimen and she thinks this is the reason for the DKA. Upon arriving to the floor, she was given 3 units of Humalog for glucose of 261. Still presenting with sinus tachycardia. Gave 1.5 L of IV fluids. Improved tachycardia to 122. Repeat lactate was 1.6.Patient is tolerating food well. No episodes of vomiting. Started patient on home regimen SSI for mealtimes and 25 units Lantus nightly. Blood sugars were between 165-343 during hospital stay. Discharge Details Physical Exam at Discharge: Discharge Condition: stable Pulse: 114 Resp: 14 BP: 149/98 Temp: 36.6 ??C (97.8 ??F) Weight: 67.8 kg (149 lb 8 oz) Pertinent Exam Findings at Discharge: Physical Exam Vitals and nursing note reviewed. Constitutional: General: She is not in acute distress. HENT: Head: Normocephalic and atraumatic. Eyes: Conjunctiva/sclera: Conjunctivae normal. Pupils: Pupils are equal, [...] warm and dry. Findings: No rash. Neurological: Mental Status: She is alert and oriented to person, place, and time. Gait: Gait is intact. Deep Tendon Reflexes: Reflexes are normal and symmetric. Psychiatric: Mood and Affect: Mood and affect normal. Discharge Disposition: home Code Status at Discharge: Full Code Active Issues & Recommended Plan for Follow-up: Diabetes mellitus type 1, s/p DKA - Continue home insulin regimen is as follows, 25 units of the glargine nightly; for mealtime she is on sliding scale insulin 1 unit per every 7-8 g of carbs - last A1c on 10/27/2021 was 7.6 - Follow up with Dr. Dey in endocrinology and PCP on December 01 ?? Vomiting - Resolved - Follow up with PCP on December 01 ?? Tachycardia - Resolved - Follow up with PCP on December 01 ?? Leukocytosis - resolved - Follow up with PCP on December 01 Allergies: Patient has no known allergies. Discharge Medications: Your medication list CONTINUE taking these medications Instructions Last Dose Given Next Dose Due insulin syringe-needle U-100 0.3 mL 31 gauge x 5/16 syringe TechLITE Insuln Syr(half unit) 0.3 mL 31 gauge x 5/16 syringe Generic drug: insulin syr/ndl U100 half jeremias ASK your doctor about these medications Instructions Last Dose Given Next Dose Due insulin glargine 100 unit/mL (3 mL) pen for injection Commonly known as: LANTUS, BASAGLAR, SEMGLEE Inject 10 Units under the skin every 12 (twelve) hours insulin lispro 100 unit/mL vial for injection Commonly known as: HumaLOG, ADMELOG OneTouch Verio test strips strip Generic drug: blood glucose diagnostic Time Spent in Discharge Process: I have spent 45 minutes on discharge planning activities. Time spent was on Coordination of care, Follow up , Counselling with patient/family, discharge exam, parent/patient education and PCP communication Test Results Pending at Discharge (If Blank, None Found): Pending Labs Order Current Status Blood culture Blood Peripheral In process Blood culture Blood Peripheral In process Operative Procedures Performed (If Blank, None Found): Outpatient Follow-Up: Contact Information for Follow-ups Nicole Lopez DO Specialty: Family Medicine Relationship: PCP - General [facility] [facility] [place] [address] Next Steps: Follow up on 12/01/2021 Instructions: 10:00 AM Please schedule an appointment with the following provider(s): Nicole Lopez DO [address] [place] [address] Follow up on 12/01/2021 10:00 AM ANCILLARY INFORMATION Other Procedures & Diagnostic Tests: No results found. Recent Labs: Recent Labs Lab Units 11/20/21 0537 11/19/212107 WBC K/cumm 12.2* 11.4* HEMOGLOBIN g/dL 12.2 13.6 HEMATOCRIT % 39.0 41.4 PLATELETS K/cumm 226 335 Recent Labs Lab Units 11/20/2153611/19/212107 WBC K/cumm 12.2* 11.4* HEMOGLOBIN g/dL 12.2 13.6 HEMATOCRIT % 39.0 41.4 PLATELETS K/cumm 226 335 NEUTROS PCT % 90.5 90.8 LYMPHS PCT % 6.7 6.4 MONOS PCT % 2.4 1.9 EOS PCT % 0.0 0.3 Recent Labs Lab Units 11/20/21 1201 11/20/21 0815 11/20/2137 11/20/211311/19/212107 SODIUM mmol/L -- -- 136 -- 137 POTASSIUM PLASMA mmol/L -- -- 4.4 -- 4.6 CHLORIDE mmol/L -- -- 104 -- 98 CO2 mmol/L -- -- 15* -- 22 BUN SERUM mg/dL -- -- 17 -- 16 CREATININE mg/dL -- -- 0.51* -- 0.50* [id number] mL/min/1.73 m2 -- -- 133 -- 133 GLUCOSE mg/dL -- -- 278* -- 343* POC GLUCOSE MONITOR mg/dL 196* < > -- < > -- CALCIUM mg/dL -- -- 8.8 -- 9.9 ALBUMIN g/dL -- -- -- -- 4.7 PHOSPHORUS PLASMA mg/dL -- -- 2.8 -- -- < > = values in this interval not displayed. Recent Labs Lab Units 11/20/21 1201 11/20/21 0811/20/2153611/20/211311/19/212107 SODIUM mmol/L -- -- 136 -- 137 POTASSIUM PLASMA mmol/L -- -- 4.4 -- 4.6 CHLORIDE mmol/L -- -- 104 -- 98 CO2 mmol/L -- -- 15* -- 22 ANIONGAP mmol/L -- -- 17* -- 17* GLUCOSE mg/dL -- -- 278* -- 343* POC GLUCOSE MONITOR mg/dL 196* 221* -- < > -- BUN SERUM mg/dL -- -- 17 -- 16 CREATININE mg/dL -- -- 0.51* -- 0.50* CALCIUM mg/dL -- -- 8.8 -- 9.9 ALBUMIN g/dL -- -- -- -- 4.7 ALK PHOS Units/L -- -- -- -- 76 ALT Units/L -- -- -- -- 15 AST Units/L -- -- -- -- 17 BILIRUBIN TOTAL mg/dL -- -- -- -- 0.6 < > = values in this interval not displayed. Recent Labs Lab Units 11/19/212107 ALK PHOS Units/L 76 BILIRUBIN TOTAL mg/dL 0.6 TOTAL PROTEIN g/dL 7.7 ALT Units/L 15 AST Units/L 17 Recent Labs Lab Units 11/20/21 0537 MAGNESIUM mg/dL 1.7 Lab Results Component Value Date GLUCOSE 196 (H) 11/20/2021 GLUCOSE 221 (H) 11/20/2021 GLUCOSE 278 (H) 11/20/2021 Implant: Implants No active implants to display in this view. General Precautions (If Blank, None Found): Isolation Status: No active isolations Nutritional Status and in-house recommendations: Dietary Orders (From admission, onward) Start Ordered 11/20/21 2100 Bedtime snack At bedtime Comments: If bedtime BG is less than 100mg/dl, give patient a 15 gram carbohydrate snack. 11/19/21 2304 11/20/21 0352 Adult Diet Special; Consistent Carbohydrate Diet effective now Comments: Clear liquid diet Question Answer Comment ([facility]) Diet Type Special Diabetic: Consistent Carbohydrate 11/20/21 0351 Anticoagulation Indication: INR: 10/24/2021: 1.2 Warfarin Administrations (last 168 hours) None Oxygen Status: O2 Therapy for the past 12 hrs: O2 Therapy 11/20/21 1602 None (Room air) 11/20/21 1139 None (Room air) 11/20/21 0822 None (Room air) 11/20/21 0737 None (Room air) Wound Care Instructions Active LDAs (If Blank, None Found): Peripheral IV 11/19/21 20 G Anterior;Proximal;Right Forearm (Active) Placement Date/Time: 11/19/212110 Type: Angiocath Size (Gauge): 20 G Location Orientation: Anterior;Proximal;Right Location: Forearm Site Prep: Alcohol Technique: Ultrasound guidance Insertion attempts: 1 Patient Tolerance: Tolerated well Patient Emergency Contact: Primary Emergency Contact: Karen Fuchs Immunization Status at Discharge Immunization History Administered Date(s) Administered ??? DTP / HiB 1996, 1996 ??? DTaP 10/31/2001 ??? Hep A, Ped Unspecified 07/14/2010 ??? Hep A, Pediatric 03/13/2011 ??? Hep B, Adolescent or Pediatric 1996, 1996 ??? IPV 11/01/2001 ??? Influenza, Quadrivalent, Split, Intramuscular 05/26/2018 ??? Influenza, Trivalent, Intramuscular 05/13/2016, 01/01/2017 ??? MMR 11/01/2001 ??? Meningococcal C Conjugate 12/11/2009 ??? Meningococcal MCV4P (Menactra) 10/25/2012 ??? OPV 1996, 1996 ??? Tdap 12/11/2009, 09/09/2016 ??? Varicella 07/14/2010 Nicole Lopez DO PGY-1 Cosigned by Winter Pickering DO at 11/22/2021 4:22 PM CDT Associated attestation - Winter Pickering DO - 11/22/2021 4:22 PM CDT I have seen and examined the patient on 11/22/21. I agree with the findings and plan of care as documented in the resident's/fellow's note., as discussed with the resident/fellow., and the patient finally did eat a slushy that her family brought from home. The patient tolerated this without difficulty. The patient was discharged home with follow-up as discussed. The patient was seen and examined on the day of discharge with resident team at bedside.. documented in this encounter Discharge Instructions * Discharge Instr - Diet* Ranjana Smith - 11/22/2021 1:31 PM CDT Continue to follow a Consistent [...] doctor for referral tooutpatient nutrition counseling. Call [facility] Outpatient Dietitian's office at [phone] for questions about your diet. Additional resources available from the [place] [employer] can be found at www.diabetes.org/nutrition * Appointments* Shonda Rodríguez RN - 11/22/2021 1:27 PM CDT THANK YOU for choosing our team to provide your health care. Your HEALTH AND SAFETY are important to us. We hope you feel your care on IMU was ALWAYS EXCELLENT! Please call IMU at [phone] if you have any questions regarding your care. Wishing you continued improvement during your recovery. Your Intermediate Care Unit Team * Attachments The following attachments cannot be sent through Care Everywhere. * Type 1 Diabetes in Adults (Discharge Care) (Algerian) * Ondansetron (By mouth, Into the mouth) (Algerian) documented in this encounter Medications at Time of Discharge insulin lispro (HumaLOG) 100 unit/mL injection Inject under the skin 3 (three) times a day before meals Uses per sliding scale 1 unit per every 7-8 grams of carb max of 50 units per day ondansetron ODT (ZOFRAN-ODT) 4 mg disintegrating tabletIndications:Na usea and Vomiting Take 1 tablet (4 mg total) by mouth every 6 (six) hours as needed for nausea or vomiting for up to 5 days 20 tablet 11/22/2021 2 insulin glargine (insulin glargine) 100 unit/mL (3 mL) pen for injection Inject 10 Units under the skin every 12 (twelve) hours 6 mL 07/23/2021 2 insulin syringe-needle U-100 0.3 mL 31 gauge x 5/16 syringe 1 Syringe 2 OneTouch Verio test strips strip USE 1 STRIP TO CHECK GLUCOSE 4 TIMES DAILY 12/01/2019 2 TechLITE Insulin Syr Half Unit 0.3 mL 31 gauge x 5/16 syringe USE ONE NEW SYRINGE 4 TIMES 02/21/2020 2 documented as of this encounter Ordered Prescriptions Prescription Sig Dispense Quantity Refills Last Filled Start Date End Date ondansetron ODT (ZOFRAN-ODT) 4 mg disintegrating tabletIndications:Na usea and Vomiting Take 1 tablet (4 mg total) by mouth every 6 (six) hours as needed for nausea or vomiting for up to 5 days 20 tablet 11/22/2021 2 documented in this encounter Discharge Disposition Disposition Code Departure Means Destination Discharge to home or self care documented in this encounter Progress Notes * Ranjana Smith - 11/22/2021 1:31 PM CDT Nutrition Assessment Reason for Assessment: Screened at Nutrition Risk and Initial Nutrition Assessment Encounter Date: 11/22/21 1:31 PM Nutrition Assessment and Plan: Patient is a 26 y.o. female. Admit Dx: VOMITING UNSPECIFIED VOMITING TYPE UNSPECIFIED WHETHER NAUSEA PRESENT ELEVATED LACTIC ACID LEVEL HYPERGLYCEMIA TACHYCARDIA. Admitted on 11/19/2021, current LOS is 1 days. Adult Malnutrition Scoring Tool (MST) Have You Recently Lost Weight Without Trying?: No Have you been eating poorly because of a decreased appetite?: No Malnutrition Screening Tool (MST) Score: 0 Current diet order: Adult Diet Special; Consistent Carbohydrate Adult Discharge Diet Pt intake is inadequate. PO intakes: 0 ASSESSMENT: Pt seen for readmission risk. Poor intakes during admission. Pt states that this is normal for her when she is at the hospital, eats fine at home. Discussed with pt the diet she follows at home and foods she avoids. Pt reports limiting high carb foods, and when she does eat them like potatoes she gives herself enough insulin. Pt family present and states DKA most likely d/t infection.Pt reports eating at lunch, and that she gets to go home once she eats, she's just waiting on doctor to discharge. Nutrition Diagnosis 1: Inadequate energy intake Related to: Loss of appetite Evidenced by: Patient interview, PO under 50% ?? Interventions: Encouragement, Follow up per policy, Assess for nutrition changes ?? Monitoring and Evaluation: Appetite, Discharge plans, Diet-related questions, Plan of care, PO intake, Labs ?? Goals: Adequate nutrition to meet estimated needs by next assessment Wt Readings from Last 10 Encounters: 11/22/21 67.8 kg (149 lb 8 oz) 10/25/21 75.7 kg (166 lb 14.2 oz) 07/22/21 73.1 kg (161 lb 2.5 oz) 04/28/21 76.5 kg (168 lb 11.2 oz) 03/26/21 64.1 kg (141 lb 5 oz) 03/05/21 66 kg (145 lb 8.1 oz) 11/16/20 73.5 kg (162 lb) 11/17/20 73.5 kg (162 lb 0.6 oz) 03/12/20 72.6 kg (160 lb) 03/07/20 73.9 kg (163 lb) Estimated needs: ?? Total Kcal/kg Estimated Needs : 1695.33 based on Kcal/k. Type of Weight Used for Estimated Kcals: Current ?? Total Protein Estimated Needs (gm): 67.81 Protein Needs Based on g/k.0 Type of Weight Used for Estimated Protein : Current. ?? Total Fluid Estimated Needs: 1695.33 Fluid Needs Based on : 1 ml/kcal. Objective Anthropometrics Weight: 67.8 kg (149 lb 8 oz) Admission Weight : 67.8 kg Weight Change: 0.00 kg (0.00 lbs) IBW/kg (Calculated) : 47.6 kg Height: 154.9 cm (5' 0.98 ) Weight in (lb) to have BMI = 25: 132 BMI (Calculated): 28.3 3 Day I/O Summary No intake/output data recorded. Temp: 36.3 ??C (97.3 ??F) Past Medical History: Diagnosis Date ??? Cannabinoid hyperemesis syndrome ??? Depression ??? Diabetes mellitus (HCC) T1DM ??? Diabetic ketoacidosis (CMS/HCC) (HCC) ??? Miscarriage Medications and Lab Review: Scheduled Meds: docusate sodium, 100 mg, oral, BID enoxaparin, 40 mg, subcutaneous, Daily-2100 insulin lispro, 0-5 Units, subcutaneous, Q4H BOB metoprolol, 5 mg, intravenous, Q6H BOB Continuous Infusions: sodium chloride 0.9%, 100 mL/hr, Last Rate: 100 mL/hr (11/22/21 0535) Sodium Date Value Ref Range Status 11/21/2021 133 (L) 135 - 145 mmol/L Final Potassium, pl Date Value Ref Range Status 11/21/2021 4.0 3.3 - 4.9 mmol/L Final BUN Date Value Ref Range Status 11/21/2021 9 8 - 25 mg/dL Final Creatinine Date Value Ref Range Status 11/21/2021 0.45 (L) 0.60 - 1.10 mg/dL Final Phosphorus, pl Date Value Ref Range Status 11/21/2021 1.4 (L) 2.3 - 4.5 mg/dL Final Albumin Date Value Ref Range Status 11/19/2021 4.7 3.5 - 5.0 g/dL Final Magnesium Date Value Ref Range Status 11/21/2021 1.8 1.4 - 2.5 mg/dL Final Calcium Date Value Ref Range Status 11/21/2021 8.2 (L) 8.5 - 10.3 mg/dL Final Lab Results Component Value Date HGBA1C 7.6 (H) 10/26/2021 Nursing Assessment: Bowel Sounds (All Quadrants): Present Teodoro Scale Score: 21 Diet Instructions Adult Discharge Diet Diet Type: [...] doctor for referral tooutpatient nutrition counseling. Call [facility] Outpatient Dietitian's office at [phone] for questions about your diet. Additional resources available from the [place] [employer] can be found at www.diabetes.org/nutrition Nutrition Follow-Up : 11/26/21 Ranjana Smith, [employer] Cosigned by Brandee Suárez at 11/22/2021 1:52 PM CDT * Nate Saha MD - 11/22/2021 7:37 AM CDT Family Medicine Daily Progress SUBJECTIVE Chief complaint of mild DKA with persistent nausea and vomiting. Interval History: Pt felt improved today. No acute issues. Pt had been refusing to eat due to finding the food unpalatable in the hospital. Her grandmother brought her a slushie which she ate and tolerated well. Denied nausea or vomiting. Denied headache or cough. Bowels had not opened but pt says this is normal in this context. OBJECTIVE Vitals: 24hr Min/Max: Temp Min: 36.1 ??C (97 ??F) Max: 36.6 ??C (97.9 ??F) Pulse Min: 83 Max: 130 BP Min: 109/56 Max: 164/97 Resp Min: 16 Max: 20 SpO2 Min: 100 % Max: 100 % Most Recent : Vitals: 11/22/21 0708 BP: 128/75 Pulse: 100 Resp: 20 Temp: 36.2 ??C (97.1 ??F) SpO2: 100% No intake/output data recorded. No intake/output data recorded. Physical Exam: Eyes: EOMI, sclerae non icteric Neck: supple, no lymphadenopathy Pharynx: No gross oral lesion, tongue midline, mucosa moist Lungs: CTA Heart: tachycardic, regular rhythm, no significant murmur or gallop Abd: +BS, Non Tender, Non distended, No gross hepatomegaly Lower Ext: No gross edema, pedal artery pulses are palpable bilaterally Neuro: No new deficits appreciated Musculoskeletal: no gross joint erythema, edema, tenderness Skin: Warm, dry Lab/Current Medication Review: Recent Results (from the past 24 hour(s)) POCT glucose Collection Time: 11/21/21 7:47 AM Result Value Ref Range Glucose, POC 182 (H) 71 - 98 mg/dL POCT glucose Collection Time: 11/21/21 11:54 AM Result Value Ref Range Glucose, POC 210 (H) 71 - 98 mg/dL POCT glucose Collection Time: 11/21/21 4:22 PM Result Value Ref Range Glucose, POC 209 (H) 71 - 98 mg/dL POCT glucose Collection Time: 11/21/21 7:53 PM Result Value Ref Range Glucose, POC 166 (H) 71 - 98 mg/dL POCT glucose Collection Time: 11/22/21 12:16 AM Result Value Ref Range Glucose, POC 177 (H) 71 - 98 mg/dL POCT glucose Collection Time: 11/22/21 3:48 AM Result Value Ref Range Glucose, POC 205 (H) 71 - 98 mg/dL XR Chest 1 View Result Date: 10/27/2021 Narrative: EXAM DESCRIPTION: XR CHEST 1 VIEW REASON FOR STUDY: check PICC position PICC line TECHNIQUE: One radiographic view of the chest acquired. COMPARISON: 10/24/2021. FINDINGS: LUNGS/PLEURA: Noconsolidation. No effusion or pneumothorax. HEART/MEDIASTINUM: The cardiac silhouette and mediastinal contours are within normal limits. HARDWARE/LINES/TUBES: PICC line is in place from a right upperextremity approach. The PICC line extends craniad within the internal jugular vein, for a distance of approximately 3 cm before turning back upon itself and ending in the proximal SVC. Repositioning is recommended. BONES: No acute findings. OTHER: No other significant finding. IMPRESSION: 1. Right-sided PICC line, looped in the internal jugular vein as discussed above. Repositioning of the PICC line and follow-up radiograph recommended. 2. No consolidation. No effusion or pneumothorax. Findingswere discussed with MARY David via phone call at 6:45 p.m. on 10/27/2021 THIS IS AN ELECTRONICALLY VERIFIED FINAL REPORT 10/27/2021 6:45 PM - Electronically signed by Marina Wen M.D. TB: TB Report ID: [id number] Reading Location: [id number] XR Chest 1 Vw Portable Result Date: 10/24/2021 Narrative: EXAM DESCRIPTION: XR CHEST 1 VIEW REASON FOR STUDY: GENERAL WEAKNESS. Came home from work sick on Wednesday throwing up. Patient last seen alert at 1 am Wednesday. Known diabetic. TECHNIQUE: Portable upright AP radiographic view of the chest acquired. COMPARISON: March 04, 2021 FINDINGS: LUNGS/PLEURA: No focal consolidation or pneumothorax. No pleural effusion. HEART/MEDIASTINUM: Heart size is normal. Normal mediastinal and hilar contours. HARDWARE/LINES/TUBES: None. BONES: No acute findings. OTHER: No other significant finding. IMPRESSION: No acute cardiopulmonary disease. THIS IS AN ELECTRONICALLY VERIFIED FINAL REPORT 10/24/2021 9:03 AM - Electronically signed by Ameya Broussard M.D. RB: TORSTEN Report ID: [id number] ReadingLocation: [id number] Current Facility-Administered Medications Medication Dose Route Frequency Provider Last Rate Last Admin ??? acetaminophen (TYLENOL) tablet 650 mg 650 mg oral Q4H PRN Miryam Medley MD ??? bisacodyL (DULCOLAX) suppository 10 mg 10 mg rectal Daily PRN Miryam Medley MD ??? bisacodyl EC (DULCOLAX EC) tablet 10 mg 10 mg oral Daily PRN Miryam Medley MD ??? dextrose gel in packet 15 g 15 g oral Q15 Min PRN Miryam Medley MD Or ??? dextrose (D10W) 10% bolus 250 mL 250 mL intravenous Q15 Min PRN Miryam Medley MD ??? docusate sodium (COLACE) capsule 100 mg 100 mg oral BID Miryam Medley MD ??? droperidoL (INAPSINE) injection 1.25 mg 1.25 mg intravenous Q6H PRN Miryam Medley MD ??? enoxaparin (LOVENOX) syringe 40 mg 40 mg subcutaneous Daily-2100 Miryam Medley MD ??? glucagon injection 1 mg 1 mg intramuscular Q30 Min PRN Miryam Medley MD ??? insulin lispro (HumaLOG, ADMELOG) 100 unit/mL pen injection 0-5 Units 0-5 Units subcutaneous Q4H Miryam Callaway MD 2 Units at 11/22/21 0353 ??? ketorolac (TORADOL) 15 mg/mL injection 15 mg 15 mg intravenous Q6H PRN Miryam Medley MD ??? metoprolol (LOPRESSOR) injection 5 mg 5 mg intravenous Q6H Lucas Rivas MD 5 mg at 11/22/21 0536 ??? ondansetron ODT (ZOFRAN-ODT) disintegrating tablet 4 mg 4 mg oral Q6H PRN Miryam Medley MD Or ??? ondansetron (ZOFRAN) injection 4 mg 4 mg intravenous Q6H PRN Miryam Medley MD ??? polyethylene glycol (MIRALAX) packet 17 g 17 g oral Daily PRN Miryam Medley MD ??? sodium chloride 0.9% infusion 100 mL/hr intravenous Continuous Lucas Paris MD 100 mL/hr at 11/22/21 0535 100 mL/hr at 11/22/21 0535 26yo F presenting with DKA vs. starvation ketosis who has recovered and is fit for discharge. Principal Problem: Uncontrolled type 1 diabetes mellitus with hyperglycemia (CMS/HCC) ([facility]) Active Problems: Dehydration Diabetic gastroparesis (CMS/HCC) ([facility]) Tachycardia Leukocytosis Nausea and vomiting Hyponatremia Constipation Resolved Problems: Diabetic ketoacidosis without coma associated with type 1 diabetes mellitus (CMS/HCC) ([facility]) Diabetic ketoacidosis (resolved) Patient had recent change to meal time insulin and she feels this is why she went into DKA. Calculated anion gap was 9, now closed, consistent with a DKA metabolic acidosis. ABGs were normal, urine showed 4+ glucose and 2+ ketones. Patient met criteria for SIRS. On admission, HR 133 and a white count of 12.2. Lactate was 2.4, no infectious cause. Urinalysis negative. Suspected noninfectious causeis DKA. Blood cultures were obtained due to meeting the criteria, patient has remained afebrile. Lactate decreased now WNL. Beta- Hydroxybutyrate 3.2 further confirming DKA diagnosis. ?? Diabetes mellitus type 1 Diabetic gastroparesis Home insulin regimen is as follows, 25 units of the glargine nightly; for mealtime she is on sliding scale insulin 1 unit per every 7-8 g of carbs. Last A1c on 10/27/2021 was 7.6. - Follows with Dr. Sanches in endocrinology - personal development educator consulted ?? Nausea and Vomiting Vomiting resolved. Nausea improved. Secondary to DKA. Has tolerated eating a slushie ?? Sinus tachycardia Likely secondary to dehydration and stress from nausea. Status post IVF, fluid bolus. Started on IVmetoprolol 5mg q6h due to inability to tolerate po metoprolol. ?? Hyponatremia Secondary to poor p.o. intake and dehydration. Sodium 133 on 11/21/2021. Will improve with increasepo intake. Leukocytosis Improving. Secondary to dehydration, stress response from DKA. WBC 12.2 on 11/20/2021. Decreased to 10.9 on 11/21/2021. Constipation Likely secondary to diabetic gastroparesis and combination of poor po intake. No bowel movement since admission. FEN - IVNS @100cc/hr; consistent carb diet DVT PPx - lovenox Consults - adult educator Code status - full code Dispo - pending improvement of symptoms, increased fluid and food intake, continued BG control Nate Saha MD, PGY-2 [facility] 11/22/2021 7:37 AM Cosigned by Winter Pickering DO at 11/22/2021 4:24 PM CDT Associated attestation - Winter Pickering DO - 11/22/2021 4:24 PM CDT I have seen and examined the patient on 11/22/21. I agree with the findings and plan of care pleasesee discharge summary from same date for details.. * Lucas Paris MD - 11/21/2021 4:33 PM CDT Family Medicine Daily Progress SUBJECTIVE Chief complaint of mild DKA with persistent nausea and vomiting. Interval History: No acute events overnight. No episodes of vomiting but still with intermittent nausea. Refusing scheduled Reglan which was discontinued. Now only on p.r.n. Zofran. Patient still not wanting to eat. Blood glucose is better controlled. Discussed with patient that we would like her to at least eat a couple bites of food to ensure that she can tolerate p.o. intake without any emesis. Patient drinkingwater and eating ice chips. Heart rate improved but continues to be increased. Metoprolol p.o. ordered. Patient refused to take p.o. so switched to metoprolol IV. Sodium decreased to 133 today. IV fluids restarted due to patient's poor p.o. intake. No BM since admission. OBJECTIVE Vitals: 24hr Min/Max: Temp Min: 36.3 ??C (97.4 ??F) Max: 36.7 ??C (98 ??F) Pulse Min: 98 Max: 132 BP Min: 109/56 Max: 155/99 Resp Min: 16 Max: 18 SpO2 Min: 100 % Max: 100 % Most Recent : Vitals: 11/21/21 1600 BP: Pulse: 98 Resp: Temp: SpO2: I/O last 2 completed shifts: In: 240 [P.O.:240] Out: - No intake/output data recorded. Physical Exam: Eyes: EOMI, sclerae non icteric Neck: supple, no lymphadenopathy Pharynx: No gross oral lesion, tongue midline, mucosa moist Lungs: CTA Heart: tachycardic, regular rhythm, no significant murmur or gallop Abd: +BS, Non Tender, Non distended, No gross hepatomegaly Lower Ext: No gross edema, pedal artery pulses are palpable bilaterally Neuro: No new deficits appreciated Musculoskeletal: no gross joint erythema, edema, tenderness Skin: Warm, dry Lab/Current Medication Review: Recent Results (from the past 24 hour(s)) POCT glucose Collection Time: 11/20/21 8:12 PM Result Value Ref Range Glucose, POC 174 (H) 71 - 98 mg/dL POCT glucose Collection Time: 11/20/21 11:46 PM Result Value Ref Range Glucose, POC 193 (H) 71 - 98 mg/dL POCT glucose Collection Time: 11/21/21 3:50 AM Result Value Ref Range Glucose, POC 206 (H) 71 - 98 mg/dL Basic metabolic panel Collection Time: 11/21/21 6:26 AM Result Value Ref Range Sodium 133 (L) 135 - 145 mmol/L Potassium, pl 4.0 3.3 - 4.9 mmol/L Chloride 101 97 - 110 mmol/L CO2 18 (L) 22 - 32 mmol/L Anion gap 14 2 - 15 mmol/L BUN 9 8 - 25 mg/dL Creatinine 0.45 (L) 0.60 - 1.10 mg/dL Glucose 175 70 - 199 mg/dL Calcium 8.2 (L) 8.5 - 10.3 mg/dL CBC with auto differential Collection Time: 11/21/21 6:26 AM Result Value Ref Range WBC 10.9 (H) 3.8 - 9.9 K/cumm Hgb 11.6 (L) 11.9 - 15.5 g/dL Hct 36.2 35.6 - 45.5 % Plt 254 150 - 400 K/cumm MPV 8.9 (L) 9.1 - 12.3 fL RBC 4.32 3.90 - 5.20 M/cumm MCV 83.8 81.3 - 96.4 fL MCH 26.9 (L) 27.1 - 33.3 pg MCHC 32.0 (L) 32.3 - 35.7 g/dL RDW CV 15.1 (H) 11.1 - 14.9 % RDW SD 46.1 35.7 - 48.1 fL NRBC abs 0.00 0.00 - 0.01 K/cumm Magnesium Collection Time: 11/21/21 6:26 AM Result Value Ref Range Magnesium 1.8 1.4 - 2.5 mg/dL Phosphorus Collection Time: 11/21/21 6:26 AM Result Value Ref Range Phosphorus, pl 1.4 (L) 2.3 - 4.5 mg/dL Differential, auto Collection Time: 11/21/21 6:26 AM Result Value Ref Range Neutrophil abs 8.1 (H) 1.7 - 6.5 K/cumm Imm gran abs 0.0 0.0 - 0.1 K/cumm Lymphocyte abs 2.2 0.8 - 3.3 K/cumm Monocyte abs 0.6 0.2 - 0.8 K/cumm Eosinophil abs 0.0 0.0 - 0.5 K/cumm Basophil abs 0.0 0.0 - 0.1 K/cumm Neutrophil pct 73.9 % Imm gran pct 0.4 % Lymphocyte pct 20.0 % Monocyte pct 5.5 % Eosinophil pct 0.0 % Basophil pct 0.2 % eGFR Collection Time: 11/21/21 6:26 AM Result Value Ref Range eGFR 137 mL/min/1.73 m2 POCT glucose Collection Time: 11/21/21 7:47 AM Result Value Ref Range Glucose, POC 182 (H) 71 - 98 mg/dL POCT glucose Collection Time: 11/21/21 11:54 AM Result Value Ref Range Glucose, POC 210 (H) 71 - 98 mg/dL POCT glucose Collection Time: 11/21/21 4:22 PM Result Value Ref Range Glucose, POC 209 (H) 71 - 98 mg/dL XR Chest 1 View Result Date: 10/27/2021 Narrative: EXAM DESCRIPTION: XR CHEST 1 VIEW REASON FOR STUDY: check PICC position PICC line TECHNIQUE: One radiographic view of the chest acquired. COMPARISON: 10/24/2021. FINDINGS: LUNGS/PLEURA: Noconsolidation. No effusion or pneumothorax. HEART/MEDIASTINUM: The cardiac silhouette and mediastinal contours are within normal limits. HARDWARE/LINES/TUBES: PICC line is in place from a right upperextremity approach. The PICC line extends craniad within the internal jugular vein, for a distance of approximately 3 cm before turning back upon itself and ending in the proximal SVC. Repositioning is recommended. BONES: No acute findings. OTHER: No other significant finding. IMPRESSION: 1. Right-sided PICC line, looped in the internal jugular vein as discussed above. Repositioning of the PICC line and follow-up radiograph recommended. 2. No consolidation. No effusion or pneumothorax. Findingswere discussed with MARY David via phone call at 6:45 p.m. on 10/27/2021 THIS IS AN ELECTRONICALLY VERIFIED FINAL REPORT 10/27/2021 6:45 PM - Electronically signed by Marina Wen M.D. TB: TB Report ID: [id number] Reading Location: [id number] XR Chest 1 Vw Portable Result Date: 10/24/2021 Narrative: EXAM DESCRIPTION: XR CHEST 1 VIEW REASON FOR STUDY: GENERAL WEAKNESS. Came home from work sick on Wednesday throwing up. Patient last seen alert at 1 am Wednesday. Known diabetic. TECHNIQUE: Portable upright AP radiographic view of the chest acquired. COMPARISON: March 04, 2021 FINDINGS: LUNGS/PLEURA: No focal consolidation or pneumothorax. No pleural effusion. HEART/MEDIASTINUM: Heart size is normal. Normal mediastinal and hilar contours. HARDWARE/LINES/TUBES: None. BONES: No acute findings. OTHER: No other significant finding. IMPRESSION: No acute cardiopulmonary disease. THIS IS AN ELECTRONICALLY VERIFIED FINAL REPORT 10/24/2021 9:03 AM - Electronically signed by Ameya Broussard M.D. RB: TORSTEN Report ID: [id number] ReadingLocation: [id number] Current Facility-Administered Medications Medication Dose Route Frequency Provider Last Rate Last Admin ??? acetaminophen (TYLENOL) tablet 650 mg 650 mg oral Q4H PRN Miryam Medley MD ??? bisacodyL (DULCOLAX) suppository 10 mg 10 mg rectal Daily PRN Miryam Medley MD ??? bisacodyl EC (DULCOLAX EC) tablet 10 mg 10 mg oral Daily PRN Miryam Medley MD ??? dextrose gel in packet 15 g 15 g oral Q15 Min PRN Miryam Medley MD Or ??? dextrose (D10W) 10% bolus 250 mL 250 mL intravenous Q15 Min PRN Miryam Medley MD ??? docusate sodium (COLACE) capsule 100 mg 100 mg oral BID Miryam Medley MD ??? droperidoL (INAPSINE) injection 1.25 mg 1.25 mg intravenous Q6H PRN Miryam Medley MD ??? enoxaparin (LOVENOX) syringe 40 mg 40 mg subcutaneous Daily-2100 Miryam Medley MD ??? glucagon injection 1 mg 1 mg intramuscular Q30 Min PRN Miryam Medley MD ??? insulin lispro (HumaLOG, ADMELOG) 100 unit/mL pen injection 0-5 Units 0-5 Units subcutaneous Q4H Miryam Callaway MD 2 Units at 11/21/21 1627 ??? ketorolac (TORADOL) 15 mg/mL injection 15 mg 15 mg intravenous Q6H PRN Miryam Medley MD ??? metoprolol (LOPRESSOR) injection 5 mg 5 mg intravenous Q6H [facility] Lucas Paris MD ??? ondansetron ODT (ZOFRAN-ODT) disintegrating tablet 4 mg 4 mg oral Q6H PRN Miryam Medley MD Or ??? ondansetron (ZOFRAN) injection 4 mg 4 mg intravenous Q6H PRN Miryam Medley MD ??? polyethylene glycol (MIRALAX) packet 17 g 17 g oral Daily PRN Miryam Medley MD ??? sodium chloride 0.9% infusion 100 mL/hr intravenous Continuous Lucas Paris MD 100 mL/hr at 11/21/21 1700 100 mL/hr at 11/21/21 1700 Principal Problem: Uncontrolled type 1 diabetes mellitus with hyperglycemia (CMS/HCC) (HCC) Active Problems: Diabetic gastroparesis (CMS/HCC) (HCC) Tachycardia Leukocytosis Nausea and vomiting Hyponatremia Constipation Resolved Problems: Diabetic ketoacidosis without coma associated with type 1 diabetes mellitus (CMS/HCC) (HCC) Diabetic ketoacidosis (resolved) Patient had recent change to meal time insulin and she feels this is why she went into DKA. Calculated anion gap was 9, now closed, consistent with a DKA metabolic acidosis. ABGs were normal, urine showed 4+ glucose and 2+ ketones. Patient met criteria for SIRS. On admission, HR 133 and a white count of 12.2. Lactate was 2.4, no infectious cause. Urinalysis negative. Suspected noninfectious causeis DKA. SIRS positive in the setting of DKA. Blood cultures were obtained due to meeting the criteria, patient has remained afebrile. Lactate decreased now WNL. Beta-Hydroxybutyrate 3.2 further confirming DKA diagnosis ?? Diabetes mellitus type 1 Diabetic gastroparesis Home insulin regimen is as follows, 25 units of the glargine nightly; for mealtime she is on sliding scale insulin 1 unit per every 7-8 g of carbs. Last A1c on 10/27/2021 was 7.6. - Follows with Dr. Sanches in endocrinology - Continue BG checks - encourage increased po intake; modify insulin regimen if needed - personal development educator consulted ?? Nausea and Vomiting Vomiting resolved. Nausea improved. Secondary to DKA. Scheduled Reglan discontinued as patient refusing. Patient is clinically improving, eating ice chips and drinking some water in bed. However, still unwilling to eat meals. - P.r.n. Zofran, droperidol - Patient needs to tolerate at least a small portion of meals before discharge ?? Sinus tachycardia Likely secondary to dehydration and stress from nausea. Status post IVF, fluid bolus. Started on IVmetoprolol 5mg q6h due to inability to tolerate po metoprolol. - Will continue to monitor VS and Telemetry - continue IV metoprolol with hold parameters; switch to po when patient able to tolerate po; will likely be discharged on po metoprolol ?? Hyponatremia Secondary to poor p.o. intake and dehydration. Sodium 133 on 11/21/2021. - continue IV fluids; can discontinue if sodium and oral intake improves - encourage p.o. intake and fluids - monitor with daily CMP Leukocytosis Improving. Secondary to dehydration, stress response from DKA. WBC 12.2 on 11/20/2021. Decreased to 10.9 on 11/21/2021. - Will monitor with daily CBC Constipation Likely secondary to diabetic gastroparesis and combination of poor po intake. No bowel movement since admission. - continue scheduled colace 100mg BID - continue prn dulcolax and miralax FEN - IVNS @100cc/hr; consistent carb diet DVT PPx - lovenox Consults - adult educator Code status - full code Dispo - pending improvement of symptoms, increased fluid and food intake, continued BG control Lucas Paris MD, PGY-2 [facility] 11/21/2021 5:14 PM Cosigned by Winter Pickering DO at 11/21/2021 6:17 PM CDT Associated attestation - Winter Pickering DO - 11/21/2021 6:17 PM CDT I have seen and examined the patient on 11/21/21. I agree with the findings and plan of care with the following modifications: The patient had mild DKA versus starvation ketosis. Given patient's presentation I am leaning more towards of starvation ketosis given her well controlled glucoses throughout her hospital stay. This is accompanied by significant dehydration resulting in volume depletion. The patient still has poor intake it is mostly just eating ice chips and sips of water. She was interested in going home but given the fact that she cannot breathe she is can not keep anything down water down I do not feel safe leaving her go home today. We may be able to discharge her tomorrow depending on clinical course... * Shonda Yoo RN - 11/20/2021 1:16 PM CDT CM Initial Assessment Interview Note Information Obtained From: Patient (11/20/21 131) Admission Source: home Impression: vomiting Plan Includes: evaluation Primary Source of Transportation: Does the patient need discharge transport arranged?: No (11/20/21 6574) Health Insurance Coverage: [employer] Prescription Coverage: yes Pharmacy: [facility] Primary Care Provider: Deena, Physician Prior to Admission: Primary Caregiver: Self Support System: Parent, Family members Home Care Services: No Durable Medical Equipment: None Living Arrangements: Parent Type of Residence: Apartment (11/20/21 1314) Patient expects to be Discharged to: Private residence, (11/20/21 1314) Additional Information: Patient lives at home with her mother in an apartment. She is independent with mobility and adls. No devices used. She is able to drive and works. Discharge plan will be to return to home and her mother will provide transportation. WATSON letter signed by patient. Will continue to follow. Patient's Identified Problem/Goal Problem: Ensure acute medical needs are met and that patient has a safe discharge plan. Goal: Secure a discharge plan that patient/family are agreeable with and ensure patient has continuum of care. Case management will follow for discharge planning and send referrals as needed. Shonda Yoo RN documented in this encounter H&P Notes * Nicole Lopez, - 11/20/2021 10:07 AM CDT History and Physical Hospitalists services Date of service: 11/20/2021 Primary care provider: Appointment with Dr. Lopez on December 01 SUBJECTIVE HPI: This is a 26-year-old female with history of type 1 diabetes and DKA presented to ED with nausea and vomiting. In the ED, she was found to be tachycardic with elevated white blood cell count at 12.2 and elevated lactate at 2.4. Blood sugar was 322. 5 units of insulin was given. HCG was negative. 2 L of fluidswas given in the ED along with droperidol. D-dimer and CRP was normal. Negative for flu and COVID-19. Saturating well on room air. Patient states she was started on a new meal time insulin regimen inthe last few weeks. Has been having trouble with adherence to the new regimen and she thinks this is the reason for the DKA. Upon arriving to the floor, she was given 3 units of Humalog for glucose of 261. Still presenting with sinus tachycardia. Gave 1.5 L of IV fluids. Improved tachycardia to 122. Repeat lactate was 1.6. Past Medical History: Diagnosis Date ??? Cannabinoid hyperemesis syndrome ??? Depression ??? Diabetes mellitus (HCC) T1DM ??? Diabetic ketoacidosis (CMS/HCC) (HCC) ??? Miscarriage Past Surgical History: Procedure Laterality Date ??? SECTION, CLASSIC 2016 ??? TONSILLECTOMY Bilateral 2002 Medications Prior to Admission Medication Sig Dispense Refill Last Dose ??? insulin glargine (insulin glargine) 100 unit/mL (3 mL) pen for injection Inject 10 Units under the skin every 12 (twelve) hours (Patient taking differently: Inject 25 Units under the skin nightly) 6 mL 0 Past Week at Unknown time ??? insulin lispro (HumaLOG) 100 unit/mL injection Inject under the skin 3 (three) times a day before meals Uses per sliding scale 1 unit per every 7-8 grams of carb max of 50 units per day 11/19/2021t Unknown time ??? insulin syringe-needle U-100 0.3 mL 31 gauge x 516 syringe 1 Syringe 11/19/2021 at Unknown time ??? OneTouch Verio test strips strip USE 1 STRIP TO CHECK GLUCOSE 4 TIMES DAILY 11/19/2021 at Unknown time ??? TechLITE Insulin Syr Half Unit 0.3 mL 31 gauge x 516 syringe USE ONE NEW SYRINGE 4 TIMES 11/19/2021 at Unknown time No Known Allergies Social History Tobacco Use ??? Smoking status: Never Smoker ??? Smokeless tobacco: Never Used Substance and Sexual Activity ??? Drug use: Yes Types: Marijuana ??? Sexual activity: Yes Partners: Male Alcohol Use: Not At Risk ??? Frequency of Alcohol Consumption: 2-4 times a month ??? Average Number of Drinks: 1 or 2 ??? Frequency of Binge Drinking: Never Family History Problem Relation Age of Onset ??? Anemia Mother ??? Autism Brother Review of Systems: 1. Constitutional Denies: weight loss, weight gain, fever, chills, night sweats, fatigue 2. Eyes Denies: change in vision, double vision, eye pain, eye discharge, icterus 3. ENT Denies: change in hearing, ear pain, ear discharge, nose bleed, nasal congestion, sore throat 4. Respiratory Denies: SOB, wheezing, cough, sputum, hemoptysis 5. CV Denies: chest pain, palpitations, syncope, edema, dyspnea 6. GI Positive for nausea and vomiting. Denies: abdominal pain, decreased appetite, change in bowel habitus, diarrhea, constipation, melena, BRBPR 7. Denies: dysuria, frequency, hematuria, nocturia, urgency 8. Metabolic Denies: cold intolerance, heat intolerance, polyphagia, polydipsia 9. Neurologic Denies: headache, dizziness, seizure, change in mental status, focal weakness, focal numbness 10. Musculoskeletal Denies: myalgia, joint pain, joint redness, joint swelling, extremity pain 11. Hematologic Denies: bleeding, bruising, hematoma, lymphadenopathy, icterus 12. Skin Denies open wounds, redness, new pigmentation, new change of color OBJECTIVE Vitals: Arrival Vitals Temp 11/19/212011 36.7 ??C (98 ??F) Pulse 11/19/212011 (!) 133 Resp 11/19/212011 20 BP 11/19/212011 134/84 SpO2 11/19/212011 100 % Temp src 11/19/212011 Oral Heart Rate Source 11/20/21 0400 Monitor Patient Position 11/20/21 0737 Lying BP Location 11/20/21 0342 Left arm FiO2 (%) -- 24hr Min/Max: Temp Min: 36.7 ??C (98 ??F) Max: 37.1 ??C (98.8 ??F) Pulse Min: 118 Max: 145 BP Min: 125/66 Max: 142/93 Resp Min: 16 Max: 20 SpO2 Min: 96 % Max: 100 % Most Recent : Vitals: 11/20/21 1139 BP: 142/93 Pulse: 122 Resp: 16 Temp: 36.9 ??C (98.4 ??F) SpO2: 100% Intake/Output Summary (Last 24 hours) at 11/20/2021 1459 Last data filed at 11/20/2021 1410 Gross per 24 hour Intake 490 ml Output -- Net 490 ml Physical exam: Eyes: EOMI, ZORAIDA, sclare non icteric Neck: supple, no nuchal ridigity, no gross carotid bruits appreciated ENT: No gross oral lesion, tongue midline, mucosa moist Respiratory: Lungs -CTA bilaterally, good inspiratory effort Cardiovascular: Heart sounds- [id number], no significant murmur or gallop GI: Abdomen-+BS, Non Tender, Non distended, No gross hepatomegaly Lower Ext: No gross edema, pedal artery pulses present bilaterally Neuro: Muscular Strength upper and lower extremities 5/5 bilaterally, elbow reflux bilaterally normal, knee reflux bilaterally normal, Babinski negative, sensory intact, cranial nerves 2-12 within normal limits, good coordination, normal speech Musculoskeletal: no gross joint erythema, edema, tenderness Genitourinary: No New change Skin: No new change Psychiatric: Normal affect, good judgment Lab/Radiology/Diagnostic Review: Recent Results (from the past 24 hour(s)) POCT glucose Collection Time: 11/19/21 8:08 PM Result Value Ref Range Glucose, POC 322 (H) 71 - 98 mg/dL CBC with auto differential Collection Time: 11/19/21 9:08 PM Result Value Ref Range WBC 11.4 (H) 3.8 - 9.9 K/cumm Hgb 13.6 11.9 - 15.5 g/dL Hct 41.4 35.6 - 45.5 % Plt 335 150 - 400 K/cumm MPV 9.4 9.1 - 12.3 fL RBC 5.01 3.90 - 5.20 M/cumm MCV 82.6 81.3 - 96.4 fL MCH 27.1 27.1 - 33.3 pg MCHC 32.9 32.3 - 35.7 g/dL RDW CV 15.5 (H) 11.1 - 14.9 % RDW SD 46.9 35.7 - 48.1 fL NRBC abs 0.00 0.00 - 0.01 K/cumm Comprehensive metabolic panel Collection Time: 11/19/21 9:08 PM Result Value Ref Range Sodium 137 135 - 145 mmol/L Potassium, pl 4.6 3.3 - 4.9 mmol/L Chloride 98 97 - 110 mmol/L CO2 22 22 - 32 mmol/L Anion gap 17 (H) 2 - 15 mmol/L BUN 16 8 - 25 mg/dL Creatinine 0.50 (L) 0.60 - 1.10 mg/dL Glucose 343 (H) 70 - 199 mg/dL Calcium 9.9 8.5 - 10.3 mg/dL Bilirubin, total 0.6 0.1 - 1.2 mg/dL Protein, pl 7.7 6.5 - 8.5 g/dL Albumin 4.7 3.5 - 5.0 g/dL Alk phos 76 40 - 130 Units/L ALT 15 7 - 45 Units/L AST 17 10 - 45 Units/L Sepsis Lactate w/ Reflex Collection Time: 11/19/21 9:08 PM Result Value Ref Range Sepsis Lactate 2.2 (H) 0.7 - 2.0 mmol/L Blood gas, venous Collection Time: 11/19/21 9:08 PM Result Value Ref Range pH, Venous 7.32 7.32 - 7.43 PCO2, Venous 46 40 - 50 mmHg PO2, Venous 53 mmHg HCO3 Venous, Calculated 23 20 - 30 mmol/L BE, venous -2 mmol/L Differential, auto Collection Time: 11/19/21 9:08 PM Result Value Ref Range Neutrophil abs 10.4 (H) 1.7 - 6.5 K/cumm Imm gran abs 0.1 0.0 - 0.1 K/cumm Lymphocyte abs 0.7 (L) 0.8 - 3.3 K/cumm Monocyte abs 0.2 0.2 - 0.8 K/cumm Eosinophil abs 0.0 0.0 - 0.5 K/cumm Basophil abs 0.0 0.0 - 0.1 K/cumm Neutrophil pct 90.8 % Imm gran pct 0.4 % Lymphocyte pct 6.4 % Monocyte pct 1.9 % Eosinophil pct 0.3 % Basophil pct 0.2 % eGFR Collection Time: 11/19/21 9:08 PM Result Value Ref Range eGFR 133 mL/min/1.73 m2 Urinalysis reflex to microscopic and culture Urine Collection Time: 11/19/21 10:20 PM Specimen: Urine Result Value Ref Range Color, ur Yellow Yellow Clarity, ur Clear Clear Specific gravity, ur 1.029 1.003 - 1.030 pH, urine 6.0 Protein, ur ql Negative Negative Glucose, ur ql 4+ (A) Negative Ketones, ur 2+ (A) Negative Bilirubin, ur Negative Negative Blood, ur Negative Negative Urobilinogen, ur <2.0 <2.0 mg/dL Nitrite, ur Negative Negative Leukocyte esterase, ur Negative Negative UA reflex comment Reflex conditions for microscopic UA and culture not met. hCG, urine, qualitative Collection Time: 11/19/21 10:20 PM Result Value Ref Range HCG, ur Negative Negative POCT glucose Collection Time: 11/20/21 12:14 AM Result Value Ref Range Glucose, POC 186 (H) 71 - 98 mg/dL Sepsis Lactate w/ Reflex Collection Time: 11/20/21 12:38 AM Result Value Ref Range Sepsis Lactate 2.4 (H) 0.7 - 2.0 mmol/L Influenza A/B, RSV, and COVID-19 PCR Nasopharyngeal Collection Time: 11/20/21 1:18 AM Specimen: Nasopharyngeal Result Value Ref Range COVID-19 RNA Negative Negative Influenza A RNA Negative Negative Influenza B RNA Negative Negative RSV RNA Negative Negative D-dimer, quantitative Collection Time: 11/20/21 1:18 AM Result Value Ref Range D-Dimer 358 <=499 ng/mL FEU CRP (acute phase) Collection Time: 11/20/21 1:18 AM Result Value Ref Range CRP <3.0 <=10.0 mg/L POCT glucose Collection Time: 11/20/21 3:45 AM Result Value Ref Range Glucose, POC 261 (H) 71 - 98 mg/dL Sepsis Lactate w/ Reflex Collection Time: 11/20/21 5:37 AM Result Value Ref Range Sepsis Lactate 1.6 0.7 - 2.0 mmol/L Beta-hydroxybutyrate Collection Time: 11/20/21 5:37 AM Result Value Ref Range Beta-Hydroxybutyrate 3.2 (H) <=0.5 mmol/L Basic metabolic panel Collection Time: 11/20/21 5:37 AM Result Value Ref Range Sodium 136 135 - 145 mmol/L Potassium, pl 4.4 3.3 - 4.9 mmol/L Chloride 104 97 - 110 mmol/L CO2 15 (L) 22 - 32 mmol/L Anion gap 17 (H) 2 - 15 mmol/L BUN 17 8 - 25 mg/dL Creatinine 0.51 (L) 0.60 - 1.10 mg/dL Glucose 278 (H) 70 - 199 mg/dL Calcium 8.8 8.5 - 10.3 mg/dL CBC with auto differential Collection Time: 11/20/21 5:37 AM Result Value Ref Range WBC 12.2 (H) 3.8 - 9.9 K/cumm Hgb 12.2 11.9 - 15.5 g/dL Hct 39.0 35.6 - 45.5 % Plt 226 150 - 400 K/cumm MPV 10.1 9.1 - 12.3 fL RBC 4.50 3.90 - 5.20 M/cumm MCV 86.7 81.3 - 96.4 fL MCH 27.1 27.1 - 33.3 pg MCHC 31.3 (L) 32.3 - 35.7 g/dL RDW CV 15.8 (H) 11.1 - 14.9 % RDW SD 50.0 (H) 35.7 - 48.1 fL NRBC abs 0.00 0.00 - 0.01 K/cumm Magnesium Collection Time: 11/20/21 5:37 AM Result Value Ref Range Magnesium 1.7 1.4 - 2.5 mg/dL Phosphorus Collection Time: 11/20/21 5:37 AM Result Value Ref Range Phosphorus, pl 2.8 2.3 - 4.5 mg/dL Differential, auto Collection Time: 11/20/21 5:37 AM Result Value Ref Range Neutrophil abs 11.0 (H) 1.7 - 6.5 K/cumm Imm gran abs 0.0 0.0 - 0.1 K/cumm Lymphocyte abs 0.8 0.8 - 3.3 K/cumm Monocyte abs 0.3 0.2 - 0.8 K/cumm Eosinophil abs 0.0 0.0 - 0.5 K/cumm Basophil abs 0.0 0.0 - 0.1 K/cumm Neutrophil pct 90.5 % Imm gran pct 0.2 % Lymphocyte pct 6.7 % Monocyte pct 2.4 % Eosinophil pct 0.0 % Basophil pct 0.2 % eGFR Collection Time: 11/20/21 5:37 AM Result Value Ref Range eGFR 133 mL/min/1.73 m2 POCT glucose Collection Time: 11/20/21 8:15 AM Result Value Ref Range Glucose, POC 221 (H) 71 - 98 mg/dL POCT glucose Collection Time: 11/20/21 12:01 PM Result Value Ref Range Glucose, POC 196 (H) 71 - 98 mg/dL XR Chest 1 View Result Date: 10/27/2021 IMPRESSION: 1. Right-sided PICC line, looped in the internal jugular vein as discussed above. Repositioning of the PICC line and follow-up radiograph recommended. 2. No consolidation. No effusion or pneumothorax. Findings were discussed with MARY David via phone call at 6:45 p.m. on 10/27/2021 THIS IS AN ELECTRONICALLY VERIFIED FINAL REPORT 10/27/2021 6:45 PM - Electronically signed by Marina Wen M.D. TB: TB Report ID: [id number] Reading Location: [id number] XR Chest 1 Vw Portable Result Date: 10/24/2021 IMPRESSION: No acute cardiopulmonary disease. THIS IS AN ELECTRONICALLY VERIFIED FINAL REPORT 10/24/2021 9:03 AM - Electronically signed by Ameya Broussard M.D. RB: RB Report ID: [id number] Reading Location: [id number] Current Facility-Administered Medications Medication Dose Route Frequency Provider Last Rate Last Admin ??? acetaminophen (TYLENOL) tablet 650 mg 650 mg oral Q4H PRN Miryam Medley MD ??? bisacodyL (DULCOLAX) suppository 10 mg 10 mg rectal Daily PRN Miryam Medley MD ??? bisacodyl EC (DULCOLAX EC) tablet 10 mg 10 mg oral Daily PRN Miryam Medley MD ??? dextrose gel in packet 15 g 15 g oral Q15 Min PRN Miryam Medley MD Or ??? dextrose (D10W) 10% bolus 250 mL 250 mL intravenous Q15 Min PRN Miryam Medley MD ??? docusate sodium (COLACE) capsule 100 mg 100 mg oral BID Miryam Medley MD ??? droperidoL (INAPSINE) injection 1.25 mg 1.25 mg intravenous Q6H PRN Miryam Medley MD ??? enoxaparin (LOVENOX) syringe 40 mg 40 mg subcutaneous Daily-2100 Miryam Medley MD ??? glucagon injection 1 mg 1 mg intramuscular Q30 Min PRN Miryam Medley MD ??? insulin lispro (HumaLOG, ADMELOG) 100 unit/mL pen injection 0-5 Units 0-5 Units subcutaneous Q4H Miryam Callaway MD 1 Units at 11/20/21 1316 ??? ketorolac (TORADOL) 15 mg/mL injection 15 mg 15 mg intravenous Q6H PRN Mriyam Medley MD ??? metoclopramide (REGLAN) injection 10 mg 10 mg intravenous Q8H Miryam Callaway MD 10 mg at 11/20/21 1314 ??? [Held by Provider] metoprolol (LOPRESSOR) injection 10 mg 10 mg intravenous Once Nicole Lopez DO ??? ondansetron (ZOFRAN) injection 4 mg 4 mg intravenous Once Magdalena Deleon NP ??? ondansetron ODT (ZOFRAN-ODT) disintegrating tablet 4 mg 4 mg oral Q6H PRN Miryam Medley MD Or ??? ondansetron (ZOFRAN) injection 4 mg 4 mg intravenous Q6H PRN Miryam Medley MD ??? polyethylene glycol (MIRALAX) packet 17 g 17 g oral Daily PRN Miryam Medley MD ??? sodium chloride 0.9% infusion 125 mL/hr intravenous Continuous AnokAlesia asencio MD 125 mL/hr at 11/20/21 0635 125 mL/hr at 11/20/21 0635 A/P DVT prophylaxis: Lovenox Code status: Full code Anticipated length of stay: possible dc tomorrow MDM Principal Problem: Vomiting Active Problems: Uncontrolled type 1 diabetes mellitus with hyperglycemia (CMS/HCC) (HCC) Diabetic gastroparesis (CMS/HCC) (HCC) Diabetic ketoacidosis without coma associated with type 1 diabetes mellitus (CMS/HCC) (HCC) Tachycardia Leukocytosis Resolved Problems: No resolved hospital problems. Diabetic ketoacidosis - Patient had recent change to meal time insulin and she feels this is why she went into DKA - calculated anion gap is 9 consistent with a DKA metabolic acidosis - ABGs were normal, urine showed 4+ glucose and 2+ ketones - patient meets criteria for SIRS, on admission heart rate of 133 and a white count of 12.2, lactate was 2.4 however there are no sources of infection. Urinalysis was negative. Suspected noninfectious cause is DKA. - SIRS positive in the setting of DKA. Blood cultures were obtained due to meeting the criteria, patient is afebrile, denies any shortness of breath or chest pain. Urinalysis was negative. Lactate isnow 1.6. - Beta-Hydroxybutyrate 3.2 further confirming DKA diagnosis Diabetes mellitus type 1 - home insulin regimen is as follows, 25 units of the glargine nightly; for mealtime she is on sliding scale insulin 1 unit per every 7-8 g of carbs - last A1c on 10/27/2021 was 7.6 - Follows with Dr. Dey in endocrinology Vomiting - P.r.n. Zofran, droperidol and Reglan - Patient is clinically improving, eating ice chips in bed - Advance diet as tolerated Tachycardia - HR 145, telemetry shows sinus tachycardia - Gave 1.5L IV fluids, HR improved to 122 - If HR does not improve, will give 10mg IV Metoprolol - Will continue to monitor VS and Telemetry Leukocytosis - WBC 12.2 - Will monitor CBC Diet: Adult diet, consistent carbohydrate PCM: Appt with Dr. Lopez on December 01 Consults: Nutrition Code status: Full code DVT prophylaxis: Lovenox GI prophylaxis: none DC Criteria: advance diet as tolerated, improve blood sugars Admission: possible dc tomorrow Voice recognition software [employer] was used dictate and transcribe this document. Laminating Machine Feeder variances may occur. Despite proofreading, typographical errors may occur. Nicole Lopez DO PGY-1 Date of Service: 11/20/2021 Cosigned by Farida Chaney MD at 11/20/2021 10:11 PM CDT Associated attestation - Farida Chaney MD - 11/20/2021 10:11 PM CDT On the date of this encounter, I saw and examined the patient, personally verifying the espinoza and critical findings in the resident's note. I reviewed and agree with the resident/fellow's findings and plan. 26 y/o female with hx of DM1 admitted for mild DKA with persistent N/V. Marked improvement with fluids and glucose control. Anticipate can discharge tomorrow. documented in this encounter Nursing Notes * Lawanda Campa RN - 11/22/2021 1:46 PM CDT Patient IV removed. Patient gathered belongings. Patient discharge summary explained to patient andfamily member in which patient signed in understanding to instructions. * Annette Alvarenga RN - 11/21/2021 5:12 PM CDT I took over care for previous RN this afternoon. Patient has been asleep and 90s to low 100s on tele. IV fluids restarted. Patient was up to bathroom independently once while I was in the room. Call light is in reach. * Peyton Carlisle RN - 11/21/2021 6:30 AM CDT Pt's vital signs are stable. Pt is resting comfortably in bed with no complaints. Will continue to monitor patient's status. documented in this encounter ED Notes * Miryam Medley MD - 11/19/2021 9:57 PM CDTAssociated Order(s): Critical Care Triage Chief Complaint: Chief Complaint Patient presents with ??? Hyperglycemia ??? Vomiting Portions of the record may have been created with voice recognition software. Occasional wrong-word or '[id number]' substitutions may have occurred due to the inherent limitations of voice recognition software. Read the chart carefully and recognize, using context, where substitutions have occurred. H&P: Karina Fuchs is a 26 y.o. female with h/o diabetes presents for nausea vomiting that started earlier today. She reports nothing helps her symptoms. It is not triggered or brought on by anything. Inthe past when she has had vomiting like this, nothing helps, not Zofran not anything. Prior to these symptoms starting, she had been in her usual state of health. No known sick contacts. No fever. Nocough. No chest pain. No diarrhea. Reports no change in bowel habits. Denies constipation. Said shehad a normal bowel movement earlier today. Denies any abnormal vaginal bleeding or discharge. Denies dysuria frequency urgency. ROS: At least 10 systems reviewed and otherwise negative except as in the HPI. Past Medical History: Diagnosis Date ??? Depression ??? Diabetes mellitus (HCC) T1DM ??? HX OTHER MEDICAL 2010 Diabetes mellitus, type 1 ??? Miscarriage Past Surgical History: Procedure Laterality Date ??? SECTION, CLASSIC 2016 ??? TONSILLECTOMY Bilateral 2002 HOME MEDICATIONS : insulin glargine (insulin glargine) 100 unit/mL (3 mL) pen for injection insulin lispro (HumaLOG) 100 unit/mL injection insulin syringe-needle U-100 0.3 mL 31 gauge x 5/16 syringe OneTouch Verio test strips strip TechLITE Insulin Syr Half Unit 0.3 mL 31 gauge x 5/16 syringe No Known Allergies Nursing Notes Reviewed. Physical Exam: ED Triage Vitals [11/19/212011] Temp Pulse Resp BP SpO2 36.7 ??C (98 ??F) (!) 133 20 134/84 100 % Temp src Heart Rate Source Patient Position BP Location FiO2 (%) Oral -- -- -- -- Height Height Method Weight Weight Method -- -- 72.3 kg (159 lb 6.3 oz) Stated GENERAL APPEARANCE: Awake and alert. Appears uncomfortable HEAD: Atraumatic. EYES: Sclera anicteric. EOMI. ENT: Tolerates saliva. NECK: Supple. Trachea midline. HEART: Tachycardia. Radial pulses 2+. LUNGS: Respirations unlabored. CTAB. ABDOMEN: Soft. Non-tender. No guarding or rebound. No pain at McBurney's point. No Schroeder sign. EXTREMITIES: No acute deformities. SKIN: Warm and dry. NEUROLOGICAL: No gross facial drooping. Moves all 4 extremities spontaneously. Normal speech and mental status. No ataxia noted. PSYCHIATRIC: Normal mood. I have reviewed and interpreted all of the currently available lab results from this visit (if applicable): Labs Reviewed URINALYSIS AND REFLEX TO MICROSCOPIC AND CULTURE - Abnormal Result Value Color, ur Yellow Clarity, ur Clear Specific gravity, ur 1.029 pH, urine 6.0 Protein, ur ql Negative Glucose, ur ql 4+ (*) Ketones, ur 2+ (*) Bilirubin, ur Negative Blood, ur Negative Urobilinogen, ur <2.0 Nitrite, ur Negative Leukocyte esterase, ur Negative UA reflex comment Value: Reflex conditions for microscopic UA and culture not met. Narrative: Urine pH is affected by diet, medications, systemic acid-base disturbances, and renal tubular function. pH may affect urinary stone formation. For example, urine pH below 6.0 may help reduce the tendency for calcium phosphate stones and pH greater than 6.0 may reduce the tendency for uric acid stone formation. Source: qcue.Last revised 05-13-2017 CBC WITH AUTO DIFFERENTIAL - Abnormal WBC 11.4 (*) Hgb 13.6 Hct 41.4 Plt 335 MPV 9.4 RBC 5.01 MCV 82.6 MCH 27.1 MCHC 32.9 RDW CV 15.5 (*) RDW SD 46.9 NRBC abs 0.00 COMPREHENSIVE METABOLIC PANEL - Abnormal Sodium 137 Potassium, pl 4.6 Chloride 98 CO2 22 Anion gap 17 (*) BUN 16 Creatinine 0.50 (*) Glucose 343 (*) Calcium 9.9 Bilirubin, total 0.6 Protein, pl 7.7 Albumin 4.7 Alk phos 76 ALT 15 AST 17 SEPSIS LACTATE WITH REFLEX - Abnormal Sepsis Lactate 2.2 (*) SEPSIS LACTATE WITH REFLEX - Abnormal Sepsis Lactate 2.4 (*) DIFFERENTIAL AUTO - Abnormal Neutrophil abs 10.4 (*) Imm gran abs 0.1 Lymphocyte abs 0.7 (*) Monocyte abs 0.2 Eosinophil abs 0.0 Basophil abs 0.0 Neutrophil pct 90.8 Imm gran pct 0.4 Lymphocyte pct 6.4 Monocyte pct 1.9 Eosinophil pct 0.3 Basophil pct 0.2 POCT GLUCOSE DEVICE - Abnormal Glucose, POC 322 (*) POCT GLUCOSE DEVICE - Abnormal Glucose, POC 186 (*) INFLUENZA A/B, RSV, AND COVID-19 PCR COVID-19 RNA Negative Influenza A RNA Negative Influenza B RNA Negative RSV RNA Negative Narrative: Is the Patient experiencing symptoms consistent with COVID?->Unknown Reason for testing?->Bed placement or semi-private room BLOOD CULTURE BLOOD CULTURE HCG, URINE, QUALITATIVE HCG, ur Negative BLOOD GAS, VENOUS pH, Venous 7.32 PCO2, Venous 46 PO2, Venous 53 HCO3 Venous, Calculated 23 BE, venous -2 EGFR eGFR 133 D-DIMER, QUANTITATIVE D-Dimer 358 CRP (ACUTE PHASE) CRP <3.0 SEPSIS LACTATE WITH REFLEX POCT GLUCOSE DEVICE POCT GLUCOSE DEVICE POCT GLUCOSE DEVICE POCT GLUCOSE DEVICE POCT GLUCOSE DEVICE POCT GLUCOSE DEVICE POCT GLUCOSE DEVICE POCT GLUCOSE DEVICE POCT GLUCOSE DEVICE POCT GLUCOSE DEVICE POCT GLUCOSE DEVICE POCT GLUCOSE DEVICE POCT GLUCOSE DEVICE POCT GLUCOSE DEVICE POCT GLUCOSE DEVICE Radiographs (if obtained): Report Reviewed: No orders to display EKG (if obtained): (All EKGs are interpreted by myself in the absence of a sheet metal duct installer apprentice) Sinus tachycardia with a rate of 120, slightly short NH interval 112, but no delta wave appreciated, narrow QRS, normal QTC, normal axis, normal in nonspecific ST segments and T-waves there is a slight scooping of the ST segment V3 through V6 which could be rate related. No STEMI. Impression: Sinus tachycardia with slightly short NH interval. When compared to previous EKG on April 27, 2021, there is no change. Critical Care Performed by: Miryam Medley MD Authorized by: Miryam Medley MD Critical care provider statement: As reflected in the history, physical exam, orders, notes, and/or MDM, I was personally present while the patient was critically ill and provided critical care services for approximately 35 minutes, excluding time involved in separately billable procedures. Critical care was necessary to treat or prevent imminent or life-threatening deterioration of the following condition(s): unstable vital signs lactic acidosis Chart review shows: ED course/MDM: Vitals: 11/19/21201111/19/21 2239 11/20/21 0030 11/20/21 0230 BP: 134/84 Pulse: (!) 133 124 (!) 128 120 Resp: 20 Temp: 36.7 ??C (98 ??F) TempSrc: Oral SpO2: 100% 97% 98% 96% Weight: 72.3 kg (159 lb 6.3 oz) ED Course as of 11/20/21 0334 Time: 11/19 2106 Comment: Pt refused Zofran, Reglan, or Compazine, stating nothing helps with her nausea except fluids. Pt has IVF infusing now. By: Magdalena Deleon NP Time: 11/19 2156 Value: pH, Venous: 7.32 Comment: (Reviewed) By: Miryam Medley MD Time: 11/19 2156 Value: CO2: 22 Comment: Reassuring By: Miryam Medley MD Time: 11/20 2227 Comment: 11/29/19 Ejection fraction is visually estimated at 67 %. By: Miryam Medley MD Time: 11/20 50 Value: Ketones, ur(!): 2+ Comment: (Reviewed) By: Miryam Medley MD Time: 11/20 50 Value: Glucose, ur ql(!): 4+ Comment: (Reviewed) By: Miryam Medley MD Time: 11/20 50 Value: HCG, ur: Negative Comment: (Reviewed) By: Miryam Medely MD Time: 11/20 0200 Comment: Dr. Kraus accepts patient for admission By: Miryam Medley MD Clinical Impression: 1. Vomiting, unspecified vomiting type, unspecified whether nausea present 2. Elevated lactic acid level 3. Hyperglycemia 4. Tachycardia Disposition: Admit (Please note that portions of this note may have been completed with a voice recognition program. Laminating Machine Feeder errors occur. Please contact me for any clarification.) Miryam Medley MD 11/20/21 0335 * Eduardo Fierro, MARY - 11/19/2021 8:09 PM CDT Patient to ED c/o vomiting x 1 day. No other complaints. Hx of DKA. Blood glucose 322 in triage documented in this encounter Miscellaneous Notes * Provider Query - Herlinda Uribe RN - 11/22/2021 2:16 PM CDT THIS IS A VALIDATION QUERY - ADDITIONAL CLINICAL INFORMATION REQUESTED Provide additional clinical indicators supportive of the documented diagnosis of _Hyponatremia on _11/21___ (query author to add date). ___ Hyponatremia ruled out _X__ Hyponatremia present and treated, document additional clinical indicators in provider response ___ Other, specify below Additional Provider Response: Trended sodium. Patient was treated with IV fluids and Na was corrected after rehydration. Clinical Indicators/Treatments: 26 yo admitted with vomiting, DM/1 with mild acidosis, tachycardia. - 11/21 PN/Dr. Asher [place]- Hyponatremia- sodium 133. - labs as noted; Latest Reference Range & Units 11/19/21 21:08 11/20/21 05:37 11/21/21 06:26 Sodium 135 - 145 mmol/L 137 136 133 (L) Anion gap 2 - 15 mmol/L 17 (H) 17 (H) 14 Glucose 70 - 199 mg/dL 343 (H) 278 (H) 175 11/21- labs- Corrected Sodium 135, using na- 133 and glucose- 175. Treated with ivf's/bolus total of 4.5 liters NS and maintenance ivf's @ 125 ml/hr, insulin/regular/iv, Sliding scale insulin, inapsine/iv, monitor labs, vitals, telemetry Use of terms such as likely, suspected, possible, or probable (associated with a specific diagnosisthat is being evaluated, monitored, or treated as if it exists) are acceptable and can be coded in the inpatient setting when documented at the time of discharge. This documentation will become part of the patient's medical record. Sincerely TONE Rust, CCDS Certified Clinical Purification Operator Helper [phone] * Plan of Care - Hilaria Fuchs RN - 11/22/2021 3:40 AM CDT Goals: Clinical Goals for the Shift: will remqain fall free Summary: Resting quietly nov falls and no acute resp distsress. Problem: Safety: Goal: Will remain free from falls Outcome: Progressing Problem: Safety: Goal: Will remain free from injury from falls Outcome: Progressing * Plan of Care - Мария Page RN - 11/21/2021 3:15 PM CDT Goals: Clinical Goals for the Shift: Pt. to remain hemodynamically stable, free of falls/injury Summary: VSS. No oral intake this shift, pt resting/sleeping this shift. HR remains elevated, IV Metoprolol administered. HR now low 100s. Safety maintained. Problem: Health Behavior: Goal: Understanding of discharge needs will improve Outcome: Progressing Problem: Metabolic: Goal: Ability to maintain appropriate glucose levels will improve Outcome: Progressing Problem: Lack of Knowledge: Goal: Verbalization of understanding the information provided will improve Outcome: Progressing Problem: Fluid Volume: Goal: Will show no signs and symptoms of electrolyte imbalance Outcome: Progressing Problem: Fluid Volume: Goal: Maintenance of adequate hydration will improve Outcome: Not Progressing Problem: Nutritional: Goal: Maintenance of adequate nutrition will improve Outcome: Not Progressing Problem: Sensory: Goal: Occurrences of nausea will decrease Outcome: Not Progressing * Provider Query - Winter Pickering DO - 11/21/2021 2:38 PM CDT Specify a diagnosis that reflects the patient???s volume status on admission, and document in the medical record and on the form below. _x__ Dehydration ___ Hypovolemia _x__ Volume Depletion ___ Other, specify below ___ Clinically unable to determine Additional Provider Response: Dehydration leading to volume depletion Clinical Indicators/Treatments: 26 yo admitted with vomiting, DM/1 with mild acidosis, tachycardia. Treated with ivf's/bolus total of 4.5 liters NS and maintenance ivf's @ 125 ml/hr, insulin/regular/iv, Sliding scale insulin, inapsine/iv, monitor labs, vitals, telemetry. Use of terms such as likely, suspected, possible, or probable (associated with a specific diagnosisthat is being evaluated, monitored, or treated as if it exists) are acceptable and can be coded in the inpatient setting when documented at the time of discharge. This documentation will become part of the patient???s medical record. Sincerely, TONE Rust, CCDS Certified Clinical Purification Operator Helper [phone] * Plan of Care - Marina Elizondo RN - 11/21/2021 2:32 AM CDT Problem: Health Behavior: Goal: Understanding of discharge needs will improve Outcome: Progressing Problem: Metabolic: Goal: Ability to maintain appropriate glucose levels will improve Outcome: Progressing Goals: Clinical Goals for the Shift: VSS and patient will rest comfortably Summary:B/P was up earlier, but is back WNL. Heart rate went up to 130s is back around 110. Denies pain. Blood sugars have been stable. * Plan of Care - Kailyn Taylor RN - 11/20/2021 3:08 PM CDT Goals: Clinical Goals for the Shift: Comfort/safety, no nausea/vomiting, monitor heart rate Summary: No distress or discomfort noted. No falls or injuries noted. No reports of nausea/vomiting. Heart rate elevated majority of this shift, has since decreased to 106. Fluid bolus given x2, tolerated well. Blood sugars below 200 this morning. Currently resting per bed siderails up x2, call light within reach. * Plan of Care - Cortney Chou RN - 11/20/2021 5:27 AM CDT Goals: Clinical Goals for the Shift: VSS, control nausea and blood sugar Summary: 26 yo patient was admitted to IMU from ER for observation for vomiting, found to have elevated blood glucose, WBC, and lactate. Alert and oriented, Oriented to unit. Insulin given per order set. No c/o pain. One episode small green, mucousy emesis noted after arrival to IMU. Call light within reach Will conitnue to monitor. Problem: Health Behavior: Goal: Understanding of discharge needs will improve Outcome: Progressing Problem: Metabolic: Goal: Ability to maintain appropriate glucose levels will improve Outcome: Progressing * ED Triage Provider Note - Magdalena Deleon NP - 11/19/2021 8:22 PM CDT 26 yo F with hx of DM 1, presents to ED with complaints of vomiting that started today. Pt appears lethargic and ill. Denies any recent illness before today. Denies any pain or fevers. documented in this encounter Plan of Treatment Not on file documented as of this encounter Procedures Procedure Name Priority Date/Time Associated Diagnosis Comments POCT GLUCOSE DEVICE Routine 11/22/2021 1 2:10 PM CDT POCT GLUCOSE DEVICE Routine 11/22/2021 8 :07 AM CDT POCT GLUCOSE DEVICE Routine 11/22/2021 3 :48 AM CDT POCT GLUCOSE DEVICE Routine 11/22/2021 1 2:16 AM CDT POCT GLUCOSE DEVICE Routine 11/21/2021 7 :53 PM CDT POCT GLUCOSE DEVICE Routine 11/21/2021 4 :22 PM CDT POCT GLUCOSE DEVICE Routine 11/21/2021 1 1:54 AM CDT POCT GLUCOSE DEVICE Routine 11/21/2021 7 :47 AM CDT EGFR Routine 11/21/2021 6:26 AM CDT DIFFERENTIAL AUTO Routine 11/21/2021 6:2 6 AM CDT CBC WITH AUTO DIFFERENTIAL Routine 11/21/2021 6:26 AM CDT PHOSPHORUS Routine 11/21/2021 6:26 AM CDT MAGNESIUM Routine 11/21/2021 6:26 AM CDT BASIC METABOLIC PANEL Routine 11/21/2021 6:26 AM CDT POCT GLUCOSE DEVICE Routine 11/21/2021 3 :50 AM CDT POCT GLUCOSE DEVICE Routine 11/20/2021 1 1:46 PM CDT POCT GLUCOSE DEVICE Routine 11/20/2021 8 :12 PM CDT POCT GLUCOSE DEVICE Routine 11/20/2021 4 :48 PM CDT POCT GLUCOSE DEVICE Routine 11/20/2021 1 2:01 PM CDT POCT GLUCOSE DEVICE Routine 11/20/2021 8 :15 AM CDT SEPSIS LACTATE WITH REFLEX Timed 11/20/2021 5:37 AM CDT EGFR Routine 11/20/2021 5:37 AM CDT DIFFERENTIAL AUTO Routine 11/20/2021 5:3 7 AM CDT BETA-HYDROXYBUTYRATE Routine 11/20/2021 5:37 AM CDT CBC WITH AUTO DIFFERENTIAL Routine 11/20/2021 5:37 AM CDT BLOOD CULTURE STAT 11/20/2021 5:37 AM CDT PHOSPHORUS Routine 11/20/2021 5:37 AM CDT MAGNESIUM Routine 11/20/2021 5:37 AM CDT BASIC METABOLIC PANEL Routine 11/20/2021 5:37 AM CDT POCT GLUCOSE DEVICE Routine 11/20/2021 3 :45 AM CDT BLOOD CULTURE STAT 11/20/2021 1:47 AM CDT INFLUENZA A/B, RSV, AND COVID-19 PCR Routine 11/20/2021 1:18 AM CDT D-DIMER, QUANTITATIVE STAT 11/20/2021 1:18 AM CDT CRP (ACUTE PHASE) STAT 11/20/2021 1:1 8 AM CDT SEPSIS LACTATE WITH REFLEX Timed 11/20/2021 12:38 AM CDT POCT GLUCOSE DEVICE Routine 11/20/2021 1 2:14 AM CDT URINALYSIS AND REFLEX TO MICROSCOPIC AND CULTURE STAT 11/19/2021 10:20 PM CDT HCG, URINE, QUALITATIVE STAT 11/19/2021 10:20 PM CDT NH CRITICAL CARE ILL/INJURED PATIENT INIT 30-74 MIN Routine 11/19/2021 9:57 PM CDT SEPSIS LACTATE WITH REFLEX STAT 11/19/2021 9:08 PM CDT EGFR STAT 11/19/2021 9:08 PM CDT DIFFERENTIAL AUTO STAT 11/19/2021 9:0 8 PM CDT CBC WITH AUTO DIFFERENTIAL STAT 11/19/2021 9:08 PM CDT BLOOD GAS, VENOUS STAT 11/19/2021 9:0 8 PM CDT COMPREHENSIVE METABOLIC PANEL STAT 11/19/2021 9:08 PM CDT POCT GLUCOSE DEVICE Routine 11/19/2021 8 :08 PM CDT documented in this encounter Results * (ABNORMAL) POCT glucose (11/22/2021 12:10 PM CDT) Glucose, POC 223(H) 71 - 98 mg/dL TOMY SAHU ([place]) Blood 11/22/2021 12:1 0 PM CDT 11/22/2021 12:10 PM CDT us Winter Pickering DO LAB POCT ORDERABLES - DEVICE Fi nal Result TOMY SAHU ([place]) 1 [facility] [place] [address] * (ABNORMAL) POCT glucose (11/22/2021 8:07 AM CDT) Glucose, POC 165(H) 71 - 98 mg/dL TOMY SAHU ([place]) Blood 11/22/2021 8:07 AM CDT 11/22/2021 8:07 AM CDT Winter Pickering DO LAB POCT ORDERABLES - DEVICE Fi nal Result Performing Organization Address City/[facility]/ZIP Co de Phone Number TOMY SAHU ([place]) 1 [facility] [place] [address] * (ABNORMAL) POCT glucose (11/22/2021 3:48 AM CDT) Glucose, POC 205(H) 71 - 98 mg/dL TOMY SAHU ([place]) Blood 11/22/2021 3:48 AM CDT 11/22/2021 3:48 AM CDT Alesia Kraus MD LAB POCT ORDERABLE S - DEVICE Final Result Performing Organization Address [facility] Co de Phone Number TOMY SAHU ([place]) 1 [facility] [place] [address] * (ABNORMAL) POCT glucose (11/22/2021 12:16 AM CDT) Glucose, POC 177(H) 71 - 98 mg/dL TOMY LUIS ALBERTO ([place]) Blood 11/22/2021 12:1 6 AM CDT 11/22/2021 12:16 AM CDT Alesia Kraus MD LAB POCT ORDERABLE S - DEVICE Final Result Performing Organization Address City/[facility] Co de Phone Number TOMY SAHU ([place]) 1 [facility] [place] [address] * (ABNORMAL) POCT glucose (11/21/2021 7:53 PM CDT) Glucose, POC 166(H) 71 - 98 mg/dL TOMY SAHU ([place]) Blood 11/21/2021 7:53 PM CDT 11/21/2021 7:53 PM CDT Alesia Kraus MD LAB POCT ORDERABLE S - DEVICE Final Result Performing Organization Address City/[facility]/ZIP Co de Phone Number TOMY SAHU ([place]) 1 [facility] [place] [address] * (ABNORMAL) POCT glucose (11/21/2021 4:22 PM CDT) Glucose, POC 209(H) 71 - 98 mg/dL TOMY SAHU ([place]) Blood 11/21/2021 4:22 PM CDT 11/21/2021 4:22 PM CDT Alesia Kraus MD LAB POCT ORDERABLE S - DEVICE Final Result Performing Organization Address [facility] Co de Phone Number TOMY SAHU ([place]) 1 [facility] [place] [address] * (ABNORMAL) POCT glucose (11/21/2021 11:54 AM CDT) Glucose, POC 210(H) 71 - 98 mg/dL TOMY LUIS ALBERTO ([place]) Blood 11/21/2021 11:5 4 AM CDT 11/21/2021 11:54 AM CDT Winter Pickering DO LAB POCT ORDERABLES - DEVICE Fi nal Result Performing Organization Address City/[facility]/ZIP Co de Phone Number TOMY SAHU ([place]) 1 [facility] [place] [address] * (ABNORMAL) POCT glucose (11/21/2021 7:47 AM CDT) Glucose, POC 182(H) 71 - 98 mg/dL TOMY SAHU ([place]) Blood 11/21/2021 7:47 AM CDT 11/21/2021 7:47 AM CDT us Winter Pickering DO LAB POCT ORDERABLES - DEVICE Fi nal Result Performing Organization Address City/[facility]/ZIP Co de Phone Number TOMY SAHU ([place]) 1 [facility] [place] [address] * eGFR (11/21/2021 6:26 AM CDT) eGFR 137 mL/min/1. 73 m2 TOMY [...] interpretive data was last reviewed 2021. Blood 11/21/2021 6:26 AM CDT 11/21/2021 6:29 AM CDT us Farida Chaney MD LAB BLOOD ORDERABLES Final Result Performing Organization Address City/[facility]/ZIP Co de Phone Number [facility] ([place]) 1 [facility] [place] [address] * (ABNORMAL) Differential, auto (11/21/2021 6:26 AM CDT) Neutrophil abs 8.1(H) 1.7 - 6.5 K/cumm [facility] ([place]) Imm gran abs 0.0 0.0 - 0.1 K/cumm [facility] ([place]) Lymphocyte abs 2.2 0.8 - 3.3 K/cumm [facility] ([place]) Monocyte abs 0.6 0.2 - 0.8 K/cumm [facility] ([place]) Eosinophil abs 0.0 0.0 - 0.5 K/cumm [facility] ([place]) Basophil abs 0.0 0.0 - 0.1 K/cumm [facility] ([place]) Neutrophil pct 73.9 % [facility] ([place]) Comment: Interpretive Data Percent cell count reference ranges are not reported, since discordance with absolute values may lead to misinterpretation of CBC data. Current Interpretive Data was last revised on 2017. Imm gran pct 0.4 % [facility] ([place]) Comment: Interpretive Data Percent cell count reference ranges are not reported, since discordance with absolute values may lead to misinterpretation of CBC data. Current Interpretive Data was last revised on 2017. Lymphocyte pct 20.0 % [facility] ([place]) Comment: Interpretive Data Percent cell count reference ranges are not reported, since discordance with absolute values may lead to misinterpretation of CBC data. Current Interpretive Data was last revised on 2017. Monocyte pct 5.5 % [facility] ([place]) Comment: Interpretive Data Percent cell count reference ranges are not reported, since discordance with absolute values may lead to misinterpretation of CBC data. Current Interpretive Data was last revised on 2017. Eosinophil pct 0.0 % [facility] ([place]) Comment: Interpretive Data Percent cell count reference ranges are not reported, since discordance with absolute values may lead to misinterpretation of CBC data. Current Interpretive Data was last revised on 2017. Basophil pct 0.2 % [facility] ([place]) Comment: Interpretive Data Percent cell count reference ranges are not reported, since discordance with absolute values may lead to misinterpretation of CBC data. Current Interpretive Data was last revised on 2017. Blood 11/21/2021 6:26 AM CDT 11/21/2021 6:29 AM CDT Farida Chaney MD LAB BLOOD ORDERABLES Final Result TOMY SAHU ([place]) 1 [facility] [place] [address] * (ABNORMAL) Phosphorus (11/21/2021 6:26 AM CDT) Phosphorus, pl 1.4(L) 2.3 - 4.5 mg/dL TOMY SAHU ([place]) Blood 11/21/2021 6:26 AM CDT 11/21/2021 6:29 AM CDT Farida Chaney MD LAB BLOOD ORDERABLES Final Result Performing Organization Address City/[facility]/ZIP Co de Phone Number TOMY SAHU ([place]) 1 [facility] [place] [address] * Magnesium (11/21/2021 6:26 AM CDT) Magnesium 1.8 1.4 - 2.5 mg/dL TOMY SAHU ([place]) Blood 11/21/2021 6:26 AM CDT 11/21/2021 6:29 AM CDT Farida Chaney MD LAB BLOOD ORDERABLES Final Result TOMY SAHU ([place]) 1 [facility] [address] [address] * (ABNORMAL) CBC with auto differential (11/21/2021 6:26 AM CDT) WBC 10.9(H) 3.8 - 9.9 K/cumm [facility] ([place]) Hgb 11.6(L) 11.9 - 15.5 g/dL [facility] ([place]) Hct 36.2 35.6 - 45.5 % [facility] ([place]) Plt 254 150 - 400 K/cumm [facility] ([place]) MPV 8.9(L) 9.1 - 12.3 fL [facility] ([place]) RBC 4.32 3.90 - 5.20 M/cumm [facility] ([place]) MCV 83.8 81.3 - 96.4 fL [facility] ([place]) MCH 26.9(L) 27.1 - 33.3 pg [facility] ([place]) MCHC 32.0(L) 32.3 - 35.7 g/dL [facility] ([place]) RDW CV 15.1(H) 11.1 - 14.9 % [facility] ([place]) RDW SD 46.1 35.7 - 48.1 fL [facility] ([place]) NRBC abs 0.00 0.00 - 0.01 K/cumm [facility] ([place]) Blood 11/21/2021 6:26 AM CDT 11/21/2021 6:29 AM CDT us Farida Chaney MD LAB BLOOD ORDERABLES Final Result [facility] ([place]) 1 [facility] [place] [address] * (ABNORMAL) Basic metabolic panel (11/21/2021 6:26 AM CDT) Sodium 133(L) 135 - 145 mmol/L [facility] ([place]) Potassium, pl 4.0 3.3 - 4.9 mmol/L [facility] ([place]) Chloride 101 97 - 110 mmol/L [facility] ([place]) CO2 18(L) 22 - 32 mmol/L [facility] ([place]) Anion gap 14 2 - 15 mmol/L [facility] ([place]) BUN 9 8 - 25 mg/dL [facility] ([place]) Creatinine 0.45(L) 0.60 - 1.10 mg/dL [facility] ([place]) Glucose 175 70 - 199 mg/dL [facility] ([place]) Comment: Interpretive Data Fasting glucose [...] 2017. Calcium 8.2(L) 8.5 - 10.3 mg/dL TOMY [facility] ([place]) Blood 11/21/2021 6:26 AM CDT 11/21/2021 6:29 AM CDT Farida Chaney MD LAB BLOOD ORDERABLES Final Result Performing Organization Address City/[facility]/ZIP Co de Phone Number TOMY [facility] ([place]) 1 [facility] [address] [address] * (ABNORMAL) POCT glucose (11/21/2021 3:50 AM CDT) Glucose, POC 206(H) 71 - 98 mg/dL TOMY SAHU ([place]) Blood 11/21/2021 3:50 AM CDT 11/21/2021 3:50 AM CDT Farida Chaney MD LAB POCT ORDERABLES - DEVIC E Final Result TOMY SAHU ([place]) 1 [facility] [address] [address] * (ABNORMAL) POCT glucose (11/20/2021 11:46 PM CDT) Glucose, POC 193(H) 71 - 98 mg/dL TOMY SAHU ([place]) Blood 11/20/2021 11:4 6 PM CDT 11/20/2021 11:46 PM CDT us Farida Chaney MD LAB POCT ORDERABLES - DEVIC E Final Result TOMY SAHU ([place]) 1 [facility] [place] [employer] [address] * (ABNORMAL) POCT glucose (11/20/2021 8:12 PM CDT) Glucose, POC 174(H) 71 - 98 mg/dL TOMY SAHU ([place]) Blood 11/20/2021 8:12 PM CDT 11/20/2021 8:12 PM CDT us Farida Chaney MD LAB POCT ORDERABLES - DEVIC E Final Result Performing Organization Address City/[facility]/ZIP Co de Phone Number TOMY SAHU ([place]) 1 [facility] [place] [address] * (ABNORMAL) POCT glucose (11/20/2021 4:48 PM CDT) Glucose, POC 186(H) 71 - 98 mg/dL TOMY SAHU ([place]) Blood 11/20/2021 4:48 PM CDT 11/20/2021 4:48 PM CDT Farida Chaney MD LAB POCT ORDERABLES - DEVIC E Final Result TOMY SAHU ([place]) 1 [facility] [place] [address] * (ABNORMAL) POCT glucose (11/20/2021 12:01 PM CDT) Glucose, POC 196(H) 71 - 98 mg/dL TOMY SAHU ([place]) Blood 11/20/2021 12:0 1 PM CDT 11/20/2021 12:01 PM CDT Farida Chaney MD LAB POCT ORDERABLES - DEVIC E Final Result TOMY SAHU ([place]) 1 [facility] [place] [address] * (ABNORMAL) POCT glucose (11/20/2021 8:15 AM CDT) Glucose, POC 221(H) 71 - 98 mg/dL TOMY [facility] ([place]) Blood 11/20/2021 8:15 AM CDT 11/20/2021 8:15 AM CDT Farida Chaney MD LAB POCT ORDERABLES - DEVIC E Final Result Performing Organization Address City/[facility] Co de Phone Number TOMY SAHU ([place]) 1 [facility] [place] [address] * eGFR (11/20/2021 5:37 AM CDT) eGFR 133 mL/min/1. 73 m2 TOMY [facility] ([place]) Comment: Interpretive Data Reference Interval Normal ?>/= [...] interpretive data was last reviewed 2021. Blood 11/20/2021 5:37 AM CDT 11/20/2021 5:42 AM CDT us Miryam Medley MD LAB BLOOD ORDERABLES Fin al Result TOMY SAHU ([place]) 1 [facility] [place] [address] * (ABNORMAL) Differential, auto (11/20/2021 5:37 AM CDT) Neutrophil abs 11.0(H) 1.7 - 6.5 K/cumm [facility] ([place]) Imm gran abs 0.0 0.0 - 0.1 K/cumm [facility] ([place]) Lymphocyte abs 0.8 0.8 - 3.3 K/cumm [facility] ([place]) Monocyte abs 0.3 0.2 - 0.8 K/cumm [facility] ([place]) Eosinophil abs 0.0 0.0 - 0.5 K/cumm [facility] ([place]) Basophil abs 0.0 0.0 - 0.1 K/cumm [facility] ([place]) Neutrophil pct 90.5 % [facility] ([place]) Comment: Interpretive Data Percent cell count reference ranges are not reported, since discordance with absolute values may lead to misinterpretation of CBC data. Current Interpretive Data was last revised on 2017. Imm gran pct 0.2 % [facility] ([place]) Comment: Interpretive Data Percent cell count reference ranges are not reported, since discordance with absolute values may lead to misinterpretation of CBC data. Current Interpretive Data was last revised on 2017. Lymphocyte pct 6.7 % [facility] ([place]) Comment: Interpretive Data Percent cell count reference ranges are not reported, since discordance with absolute values may lead to misinterpretation of CBC data. Current Interpretive Data was last revised on 2017. Monocyte pct 2.4 % TOMY SAHU ([place]) Comment: Interpretive Data Percent cell count [...] revised on 2017. Basophil pct 0.2 % TOMY SAHU ([place]) Comment: Interpretive Data Percent cell count reference ranges are not reported, since discordance with absolute values may lead to misinterpretation of CBC data. Current Interpretive Data was last revised on 2017. Blood 11/20/2021 5:37 AM CDT 11/20/2021 5:42 AM CDT Miryam Medley MD LAB BLOOD ORDERABLES Fin al Result TOMY SAHU ([place]) 1 [facility] [place] [address] * (ABNORMAL) Beta-hydroxybutyrate (11/20/2021 5:37 AM CDT) Beta-Hydroxybu tyrate 3.2(H) <=0.5 mmol/L TOMY SAHU ([place]) Comment:Testing performed by : [facility], [address] [place] [address], [place]., [address] Blood 11/20/2021 5:37 AM CDT 11/20/2021 9:42 AM CDT Miryam Medley MD LAB BLOOD ORDERABLES Fin al Result TOMY SAHU ([place]) 1 [facility] [place] [address] * Phosphorus (11/20/2021 5:37 AM CDT) Pathologist [facility] Phosphorus, pl 2.8 2.3 - 4.5 mg/dL [facility] ([place]) Blood 11/20/2021 5:37 AM CDT 11/20/2021 5:42 AM CDT Miraym Medley MD LAB BLOOD ORDERABLES Fin al Result [facility] ([place]) 1 [facility] [place] [employer] [place] [address] * Magnesium (11/20/2021 5:37 AM CDT) [facility] Magnesium 1.7 1.4 - 2.5 mg/dL [facility] Blood 11/20/2021 5:37 AM CDT 11/20/2021 5:42 AM CDT Miryam Medley MD LAB BLOOD ORDERABLES Fin al Result Performing Organization Address City/[facility]/ZIP Co de Phone Number [facility] ([place]) 1 [facility] [place] [address] * (ABNORMAL) CBC with auto differential (11/20/2021 5:37 AM CDT) Pathologist [facility] WBC 12.2(H) 3.8 - 9.9 K/cumm [facility] ([place]) Hgb 12.2 11.9 - 15.5 g/dL [facility] ([place]) Hct 39.0 35.6 - 45.5 % [facility] ([place]) Plt 226 150 - 400 K/cumm [facility] ([place]) MPV 10.1 9.1 - 12.3 fL [facility] ([place]) RBC 4.50 3.90 - 5.20 M/cumm [facility] ([place]) MCV 86.7 81.3 - 96.4 fL [facility] ([place]) MCH 27.1 27.1 - 33.3 pg [facility] ([place]) MCHC 31.3(L) 32.3 - 35.7 g/dL [facility] RDW CV 15.8(H) 11.1 - 14.9 % [facility] ([place]) RDW SD 50.0(H) 35.7 - 48.1 fL [facility] ([place]) NRBC abs 0.00 0.00 - 0.01 K/cumm [facility] ([place]) Blood 11/20/2021 5:37 AM CDT 11/20/2021 5:42 AM CDT us Miryam Medley MD LAB BLOOD ORDERABLES Fin al Result [facility] ([place]) 1 [facility] [place] [address] * (ABNORMAL) Basic metabolic panel (11/20/2021 5:37 AM CDT) Sodium 136 135 - 145 mmol/L [facility] ([place]) Potassium, pl 4.4 3.3 - 4.9 mmol/L [facility] ([place]) Chloride 104 97 - 110 mmol/L [facility] CO2 15(L) 22 - 32 mmol/L [facility] ([place]) Anion gap 17(H) 2 - 15 mmol/L [facility] BUN 17 8 - 25 mg/dL [facility] ([place]) Creatinine 0.51(L) 0.60 - 1.10 mg/dL [facility] Glucose 278(H) 70 - 199 mg/dL [facility] ([place]) Comment: Interpretive Data Fasting glucose [...] interpretive data was last revised 2017. Calcium 8.8 8.5 - 10.3 mg/dL TOMY SAHU ([place]) Blood 11/20/2021 5:37 AM CDT 11/20/2021 5:42 AM CDT us Miryam Medley MD LAB BLOOD ORDERABLES Fin al Result TOMY SAHU ([place]) 1 [facility] [place] [address] * Sepsis Lactate w/ Reflex (11/20/2021 5:37 AM CDT) Sepsis Lactate 1.6 0.7 - 2.0 mmol/L ASHLEYTOSHA SAHU ([place]) Blood 11/20/2021 5:37 AM CDT 11/20/2021 5:42 AM CDT us Magdalena Deleon NP LAB BLOOD ORDERABLES Final R esult Performing Organization Address City/[facility]/ZIP Co de Phone Number TOMY SAHU ([place]) [address] [place] [address] [place] [address] * Blood culture Blood Peripheral (11/20/2021 5:37 AM CDT) Report Final Report: No growth TOMY LUIS ALBERT[facility] ([place]) Comment:Testing performed by : [facility], [address] [facility], [place]., [address] Blood (Peripheral) 11/20/2021 5:37 AM CDT 11/20/2021 8:47 AM CDT Narrative TOMY SAHU ([place]) - 11/24/2021 12:00 PM CDT From a different site than #1. Draw Blood cultures before administration of Antibiotics Received only aerobic blood culture bottle 1. ?Blood cultures are incubated for 4 days on a continuously monitored blood culture system. The first report of a negative culture is issued within 24 hours of receipt of the specimen in the laboratory. 2. ?Positive culture results are reported as soon as they are detected. 3. ?The most important factor for detection of microbes in the setting of bloodstream infection is the volume of blood submitted for culture. Failure to collect an optimal blood volume can result in false negative blood cultures. For pediatric patients, the recommended blood volume to collect is 1 mL of blood per year of patient age (up to 20 mL) per blood culture set. For adult patients, 20 mL of blood, divided equally between aerobic and anaerobic blood culture bottles, is recommended for each blood culture set. 4. ?For blood cultures with Gram-positive cocci, a rapid molecular test for organism identification may be performed using the KKBOXigene Gram-Positive Blood Culture Assay. This assay detects microbial DNA in positive blood culture broth via hybridization of target DNA to capture oligonucleotides on a microarray. This assay has been cleared by the [place] Food and Drug Administration and its performance characteristics have been verified by the [facility]. 5. ?For questions about this culture, contact the Microbiology Laboratory at [phone]. Interpretive data was last revised on 2019. us Miryma Medley MD LAB MICROBIOLOGY - GENER AL ORDERABLES Final Result TOMY SAHU ([place]) 1 [facility] [place] [address] * (ABNORMAL) POCT glucose (11/20/2021 3:45 AM CDT) [facility] Glucose, POC 261(H) 71 - 98 mg/dL TOMY SAHU ([place]) Blood 11/20/2021 3:45 AM CDT 11/20/2021 3:45 AM CDT Alesia Kraus MD LAB POCT ORDERABLE S - DEVICE Final Result TOMY SAHU ([place]) 1 [facility] [place] [employer] [address] * Blood culture Blood Peripheral (11/20/2021 1:47 AM CDT) Report Final Report: No growth TOMY SAHU ([place]) Comment:Testing performed by : [facility], [address] [facility] [address] Blood (Peripheral) 11/20/2021 1:47 AM CDT 11/20/2021 5:53 AM CDT Narrative TOMY SAHU ([place]) - 11/24/2021 7:01 AM CDT Draw Blood cultures before administration of Antibiotics Received only aerobic blood culture bottle 1. ?Blood cultures are incubated for 4 days on a continuously monitored blood culture system. The first report of a negative culture is issued within 24 hours of receipt of the specimen in the laboratory. 2. ?Positive culture results are reported as soon as they are detected. 3. ?The most important factor for detection of microbes in the setting of bloodstream infection is the volume of blood submitted for culture. Failure to collect an optimal blood volume can result in false negative blood cultures. For pediatric patients, the recommended blood volume to collect is 1 mL of blood per year of patient age (up to 20 mL) per blood culture set. For adult patients, 20 mL of blood, divided equally between aerobic and anaerobic blood culture bottles, is recommended for each blood culture set. 4. ?For blood cultures with Gram-positive cocci, a rapid molecular test for organism identification may be performed using the KKBOXigene Gram-Positive Blood Culture Assay. This assay detects microbial DNA in positive blood culture broth via hybridization of target DNA to capture oligonucleotides on a microarray. This assay has been cleared by the [place] Food and Drug Administration and its performance characteristics have been verified by the [facility]. 5. ?For questions about this culture, contact the Microbiology Laboratory at [phone]. Interpretive data was last revised on 2019. us Miryam Medley MD LAB MICROBIOLOGY - [place] AL ORDERABLES Final Result TOMY SAHU ([place]) 1 [facility] [place] [address] * CRP (acute phase) (11/20/2021 1:18 AM CDT) CRP <3.0 <=10.0 mg/L TOMY [facility] ([place]) Blood 11/20/2021 1:18 AM CDT 11/20/2021 1:23 AM CDT Miryam Medley MD LAB BLOOD ORDERABLES Fin al Result Performing Organization Address City/[facility]/ZIP Co de Phone Number [facility] ([place]) [address] [place] [address] [address] [address] * D-dimer, quantitative (11/20/2021 1:18 AM CDT) D-Dimer 358 <=499 ng/mL FEU TOMY [facility] ([place]) Comment: Interpretive data FDA approved the D-dimer, in conjunction with a low or moderate pretest probability score, to exclude venous thromboembolic events (VTE) (PE and DVT) in outpatients when the D-dimer result is < 500 ng/ml FEU. ?? Evidence supports using an age-adjusted D-dimer cut-off for outpatients older than 50 (age x 10) to improve specificity without sacrificing sensitivity. Example: age 68, VTE cut-off 680 ng/ml FEU. References; Schouten HT et al. Brit Med J. 2013;346:f2492. Irving COLVIN et al. Annals Int Med. 2015;163:701-11. Current interpretive data was last revised on 2019. Blood 11/20/2021 1:18 AM CDT 11/20/2021 1:23 AM CDT Miryam Medley MD LAB BLOOD ORDERABLES Fin al Result [facility] ([place]) [address] [facility] [address] [address] * Influenza A/B, RSV, and COVID-19 PCR Nasopharyngeal (11/20/2021 1:18 AM CDT) Pathologist [facility] COVID-19 RNA Negative Negative [facility] ([place]) Influenza A RNA Negative Negative [facility] ([place]) Influenza B RNA Negative Negative [facility] ([place]) RSV RNA Negative Negative [facility] ([place]) Comment: Interpretive data: This test is performed using the [employer] Xpert Xpress CoV-2/Flu/RSV plus assay. This is [...] infection. Interpretive Data last revised 2021. Nasopharyngeal 11/20/2021 1: 18 AM CDT 11/20/2021 1:22 AM CDT Narrative [facility] ([place]) - 11/20/2021 2:12 AM CDT Is the Patient experiencing symptoms consistent with COVID?->Unknown Reason for testing?->Bed placement or semi-private room us Miryam Medley MD LAB MICROBIOLOGY - GENER AL ORDERABLES Final Result Performing Organization Address City/[facility]/ZIP Co de Phone Number TOMY [facility] ([place]) [address] [facility] [place] [address] * (ABNORMAL) Sepsis Lactate w/ Reflex (11/20/2021 12:38 AM CDT) Sepsis Lactate 2.4(H) 0.7 - 2.0 mmol/L [facility] ([place]) Blood 11/20/2021 12:3 8 AM CDT 11/20/2021 12:40 AM CDT us Magdalena Deleon NP LAB BLOOD ORDERABLES Final R esult TOMY SAHU ([place]) 1 [facility] [place] [address] * (ABNORMAL) POCT glucose (11/20/2021 12:14 AM CDT) Glucose, POC 186(H) 71 - 98 mg/dL [facility] ([place]) Blood 11/20/2021 12:1 4 AM CDT 11/20/2021 12:14 AM CDT Notinfile Unknown LAB POCT ORDERABLES - DEVICE F inal Result Performing Organization Address City/[facility]/ZIP Co de Phone Number TOMY SAHU ([place]) 1 [facility] [place] [address] * hCG, urine, qualitative (11/19/2021 10:20 PM CDT) Pathologist [facility] HCG, ur Negative Negative [facility] Urine 11/19/2021 10:2 0 PM CDT 11/19/2021 10:27 PM CDT Magdalena Deleon MID LEVEL BUSINESS ANALYST LAB URINE ORDERABLES Final R esult Performing Organization Address [facility] Co de Phone Number TOMY SAHU ([place]) 1 [facility] [place] [address] * (ABNORMAL) Urinalysis reflex to microscopic and culture Urine (11/19/2021 10:20 PM CDT) Color, ur Yellow Yellow [facility] ([place]) Clarity, ur Clear Clear [facility] ([place]) Specific gravity, ur 1.029 1.003 - 1.030 [facility] ([place]) pH, urine 6.0 [facility] ([place]) Protein, ur ql Negative Negative [facility] ([place]) Glucose, ur ql 4+(A) Negative [facility] ([place]) Ketones, ur 2+(A) Negative [facility] ([place]) Bilirubin, ur Negative Negative [facility] ([place]) Blood, ur Negative Negative [facility] ([place]) Urobilinogen, ur <2.0 <2.0 mg/dL [facility] ([place]) Nitrite, ur Negative Negative [facility] ([place]) Leukocyte esterase, ur Negative Negative [facility] ([place]) UA reflex comment Reflex conditions for microscopic UA and culture not met. TOMY SAHU ([place]) Urine 11/19/2021 10:2 0 PM CDT 11/19/2021 10:28 PM CDT Narrative TOMY SAHU ([place]) - 11/19/2021 10:43 PM CDT ?? Urine pH is affected by diet, medications, systemic acid-base disturbances, and renal tubular function. ??pH may affect urinary stone formation. ??For example, urine pH below 6.0 may help reduce the tendency for calcium phosphate stones and pH greater than 6.0 may reduce the tendency for uric acid stone formation. Source: [facility] [employer]. Last revised 05-13-2017 us Magdalena Deleon NP LAB MICROBIOLOGY - GENERAL O RDERABLES Final Result TOMY SAHU ([place]) 1 [facility] [place] [address] * [place] CRITICAL CARE ILL/INJURED PATIENT INIT 30-74 MIN (11/19/2021 9:57 PM CDT) Narrative Miryam Medley MD - 11/19/2021 9:57 PM CDT Miryam Medley MD ? 11/20/2021 ??3:35 AM Critical Care Performed by: Miryam Medley MD Authorized by: Miryam Medley MD Critical care provider statement: As reflected in the history, physical exam, orders, notes, and/or MDM, I was personally present while the patient was critically ill and provided critical care services for approximately 35 minutes, excluding time involved in separately billable procedures. ??Critical care was necessary to treat or prevent imminent or life-threatening deterioration of the following condition(s): ?? unstable vital signs ?? lactic acidosis us Miryam Medley MD IN CLINIC/BEDSIDE ORDERA BLES Final Result * eGFR (11/19/2021 9:08 PM CDT) eGFR 133 mL/min/1. 73 m2 [facility] ([place]) Comment: [...] interpretive data was last reviewed 2021. Blood 11/19/2021 9:08 PM CDT 11/19/2021 9:21 PM CDT us Magdalena Deleon MID LEVEL BUSINESS ANALYST LAB BLOOD ORDERABLES Final R esult [facility] ([place]) 1 [facility] [place] [address] * (ABNORMAL) Differential, auto (11/19/2021 9:08 PM CDT) Neutrophil abs 10.4(H) 1.7 - 6.5 K/cumm [facility] ([place]) Imm gran abs 0.1 0.0 - 0.1 K/cumm [facility] ([place]) Lymphocyte abs 0.7(L) 0.8 - 3.3 K/cumm [facility] ([place]) Monocyte abs 0.2 0.2 - 0.8 K/cumm [facility] ([place]) Eosinophil abs 0.0 0.0 - 0.5 K/cumm [facility] ([place]) Basophil abs 0.0 0.0 - 0.1 K/cumm [facility] ([place]) Neutrophil pct 90.8 % [facility] ([place]) Comment: Interpretive [...] was last revised on 2017. Lymphocyte pct 6.4 % [facility] ([place]) Comment: Interpretive Data Percent cell count reference ranges are not reported, since discordance with absolute values may lead to misinterpretation of CBC data. Current Interpretive Data was last revised on 2017. Monocyte pct 1.9 % [facility] ([place]) Comment: Interpretive Data Percent cell count reference ranges are not reported, since discordance with absolute values may lead to misinterpretation of CBC data. Current Interpretive Data was last revised on 2017. Eosinophil pct 0.3 % [facility] ([place]) Comment: Interpretive Data Percent cell count reference ranges are not reported, since discordance with absolute values may lead to misinterpretation of CBC data. Current Interpretive Data was last revised on 2017. Basophil pct 0.2 % [facility] ([place]) Comment: Interpretive Data Percent cell count reference ranges are not reported, since discordance with absolute values may lead to misinterpretation of CBC data. Current Interpretive Data was last revised on 2017. Blood 11/19/2021 9:08 PM CDT 11/19/2021 9:20 PM CDT us Magdalena Deleon MID LEVEL BUSINESS ANALYST LAB BLOOD ORDERABLES Final R esult TOMY [facility] ([place]) 1 [facility] [place] [address] * Blood gas, venous (11/19/2021 9:08 PM CDT) Pathologist [facility] pH, Venous 7.32 7.32 - 7.43 [facility] ([place]) PCO2, Venous 46 40 - 50 mmHg [facility] PO2, Venous 53 mmHg [facility] ([place]) Comment: Interpretive Data No Reference Range Established Current Interpretive Data was last revised on 2017. HCO3 Venous, Calculated 23 20 - 30 mmol/L [facility] ([place]) BE, venous -2 mmol/L [facility] Comment: Interpretive Data No Reference Range Established Current Interpretive Data was last revised on 2017. Blood 11/19/2021 9:08 PM CDT 11/19/2021 9:13 PM CDT us Magdalena Deleon MID LEVEL BUSINESS ANALYST LAB BLOOD ORDERABLES Final R esult [facility] ([place]) 1 [place] [address] * (ABNORMAL) Sepsis Lactate w/ Reflex (11/19/2021 9:08 PM CDT) [facility] Sepsis Lactate 2.2(H) 0.7 - 2.0 mmol/L [facility] ([place]) Blood 11/19/2021 9:08 PM CDT 11/19/2021 9:12 PM CDT us Magdalena Deleon MID LEVEL BUSINESS ANALYST LAB BLOOD ORDERABLES Final R esult [facility] ([place]) 1 [place] [address] * (ABNORMAL) Comprehensive metabolic panel (11/19/2021 9:08 PM CDT) [facility] Sodium 137 135 - 145 mmol/L [facility] ([place]) Potassium, pl 4.6 3.3 - 4.9 mmol/L [facility] ([place]) Chloride 98 97 - 110 mmol/L [facility] ([place]) CO2 22 22 - 32 mmol/L [facility] ([place]) Anion gap 17(H) 2 - 15 mmol/L [facility] ([place]) BUN 16 8 - 25 mg/dL [facility] ([place]) Creatinine 0.50(L) 0.60 - 1.10 mg/dL [facility] ([place]) Glucose 343(H) 70 - 199 mg/dL [facility] ([place]) [...] interpretive data was last revised 2017. Calcium 9.9 8.5 - 10.3 mg/dL [facility] ([place]) Bilirubin, total 0.6 0.1 - 1.2 mg/dL [facility] ([place]) Protein, pl 7.7 6.5 - 8.5 g/dL [facility] ([place]) Albumin 4.7 3.5 - 5.0 g/dL [facility] ([place]) Alk phos 76 40 - 130 Units/L [facility] ([place]) ALT 15 7 - 45 Units/L [facility] ([place]) AST 17 10 - 45 Units/L [facility] ([place]) Blood 11/19/2021 9:08 PM CDT 11/19/2021 9:21 PM CDT us Magdalena Deleon MID LEVEL BUSINESS ANALYST LAB BLOOD ORDERABLES Final R esult [facility] ([place]) 1 [facility] [place] [address] * (ABNORMAL) CBC with auto differential (11/19/2021 9:08 PM CDT) WBC 11.4(H) 3.8 - 9.9 K/cumm [facility] ([place]) Hgb 13.6 11.9 - 15.5 g/dL [facility] ([place]) Hct 41.4 35.6 - 45.5 % [facility] ([place]) Plt 335 150 - 400 K/cumm [facility] ([place]) MPV 9.4 9.1 - 12.3 fL [facility] ([place]) RBC 5.01 3.90 - 5.20 M/cumm [facility] ([place]) MCV 82.6 81.3 - 96.4 fL [facility] ([place]) MCH 27.1 27.1 - 33.3 pg [facility] ([place]) MCHC 32.9 32.3 - 35.7 g/dL [facility] ([place]) RDW CV 15.5(H) 11.1 - 14.9 % [facility] ([place]) RDW SD 46.9 35.7 - 48.1 fL [facility] ([place]) NRBC abs 0.00 0.00 - 0.01 K/cumm [facility] ([place]) Blood 11/19/2021 9:08 PM CDT 11/19/2021 9:20 PM CDT us Magdalena Deleon MID LEVEL BUSINESS ANALYST LAB BLOOD ORDERABLES Final R esult [facility] ([place]) 1 [facility] [place] [address] * (ABNORMAL) POCT glucose (11/19/2021 8:08 PM CDT) Glucose, POC 322(H) 71 - 98 mg/dL [facility] ([place]) Blood 11/19/2021 8:08 PM CDT 11/19/2021 8:08 PM CDT us Notinfile Unknown LAB POCT ORDERABLES - DEVICE F inal Result [facility] [place]) 1 [facility] [place] [address] documented in this encounter Visit Diagnoses Diagnosis Uncontrolled type 1 diabetes mellitus with hyperglycemia (CMS/HCC) ([facility])- Primary Vomiting, unspecified vomiting type, unspecified whether nausea present Elevated lactic acid level Hyperglycemia Other abnormal glucose Tachycardia Unspecified tachycardia Nausea and vomiting Nausea with vomiting Diabetic ketoacidosis without coma associated with type 1 diabetes mellitus (CMS/HCC) (HCC) Tachycardia Unspecified tachycardia Leukocytosis Leukocytosis, unspecified Diabetic gastroparesis (CMS/HCC) (HCC) Type II or unspecified type diabetes mellitus with neurological manifestations, not stated as uncontrolled Hyponatremia Hyposmolality and/or hyponatremia Constipation Unspecified constipation Dehydration documented in this encounter Admitting Diagnoses Diagnosis [...] UNABLE to swallow/take PO glucose/juice., Starting on Wed11/19/21 at 2304, After treatment for hypoglycemia, recheck BG followed by treatment every 15 minutes until the BG is greater than 100 mg/dL. Then check BG 1 hour post treatment. If BG is less than 100 mg/dL, repeat Q15 minute BG checks and treatment. Call MD for each episode of hypoglycemia., Indications: hypoglycemic disorderIndications:hypogl ycemic disorder dextrose gel in packet 15 g 15 g, oral, Every 15 min PRN, low blood sugar, blood glucose less than 70 mg/dL, Starting on Wed11/19/21 at 2304, If patient is alert and able to [...] for each episode of hypoglycemia., Indications: hypoglycemic disorderIndications:hypogl ycemic disorder droperidoL (INAPSINE) injection 1.25 mg 1.25 mg, intravenous, Administer over 5 Minutes, Once, On Wed11/19/21 at 2201, For 1 dose Given 11/20/2021 12:22 AM CDT 1.25 mg glucagon injection 1 mg 1 mg, intramuscular, Every 30 min PRN, low blood sugar, blood glucose less than 70 mg/dL AND no IV access AND unable to take PO glucose/juice., Starting on Wed11/19/21 at 2304, After Glucagon is administered, position patient on [...] Every 4 hours scheduled, First dose on Wed11/20/21 at 0000, Blood glucose mg/dL: 149 or less: No [...] 2 units prior to administration., Indications: Diabetes MellitusIndications:Diabet es Mellitus Given 11/22/2021 12:18 PM CDT 2 Units Right Upper Arm Given 11/22/2021 8:33 AM CDT 1 Units Ri ght Upper Arm Given 11/22/2021 3:53 AM CDT 2 Units Le ft Lower Abdomen insulin regular (HumuLIN R, NovoLIN R) 100 unit/mL injection 5 Units 5 Units, intravenous, Once, On Wed11/19/21 at 2305, For 1 dose Given 11/19/2021 11:21 PM CDT 5 Units metoclopramide (REGLAN) injection 10 mg 10 mg, intravenous, Every 8 hours scheduled, First dose on Wed11/20/21 at 0600 Given 11/20/2021 1:14 PM CDT 10 mg metoprolol (LOPRESSOR) injection 5 mg 5 mg, intravenous, Administer over 1 Minutes, Every 12 hours scheduled, First dose on Wed11/21/21 at 1400 Given 11/21/2021 2:31 PM CDT 5 mg metoprolol (LOPRESSOR) injection 5 mg 5 mg, intravenous, Administer over 1 Minutes, Every 6 hours scheduled, First dose (after last modification) on Wed11/21/21 at 1800, Hold for SBP <110 Hold for HR <50 Given 11/22/2021 12:15 PM CDT 5 mg Given 11/22/2021 5:36 AM CDT 5 mg Given 11/22/2021 12:21 AM CDT 5 mg ondansetron (ZOFRAN) injection 4 mg 4 mg, intravenous, Administer over 2 Minutes, Every 6 hours PRN, nausea, vomiting, if not tolerating PO, Starting on Wed11/20/21 at 0351, Indications: Nausea and VomitingIndications:Nausea and Vomiting ondansetron ODT (ZOFRAN-ODT) disintegrating tablet 4 mg 4 mg, oral, Every 6 hours PRN, nausea, vomiting, Starting on Wed11/20/21 at 0351, Indications: Nausea and VomitingIndications:Nausea and Vomiting sodium chloride 0.9% bolus 1,000 mL 1,000 mL, intravenous, at 1,000 mL/hr, Administer over 1 Hours, Once, On Wed11/19/21 at 2047, For 1 dose New Bag 11/19/2021 9:11 PM CDT 1,000 mL 1000 mL/hr sodium chloride 0.9% bolus 1,000 mL 1,000 mL, intravenous, at 1,000 mL/hr, Administer over 1 Hours, Once, On Wed11/19/21 at 2116, For 1 dose New Bag 11/19/2021 10:23 PM CDT 1,000 mL 1000 mL/hr sodium chloride 0.9% bolus 1,000 mL 1,000 mL, intravenous, at 1,000 mL/hr, Administer over 1 Hours, Once, On Wed11/20/21 at 0200, For 1 dose New Bag 11/20/2021 2:11 AM CDT 1,000 mL 1000 mL/hr sodium chloride 0.9% bolus 1,000 mL 1,000 mL, intravenous, at 1,000 mL/hr, Administer over 1 Hours, Once, On Wed11/20/21 at 1215, For 1 dose New Bag 11/20/2021 1:13 PM CDT 1,000 mL 1000 mL/hr sodium chloride 0.9% bolus 500 mL 500 mL, intravenous, at 500 mL/hr, Administer over 1 Hours, Once, On Wed11/20/21 at 0900, For 1 dose New Bag 11/20/2021 8:32 AM CDT 500 mL 500 mL/hr sodium chloride 0.9% infusion 125 mL/hr, intravenous, Continuous, Starting on Wed11/20/21 at 0645, For 24 hours New Bag 11/21/2021 1:49 AM CDT 125 mL/hr 125 mL/hr New Bag 11/20/2021 6:30 PM CDT 125 mL/hr 125 mL/hr New Bag 11/20/2021 6:35 AM CDT 125 mL/hr 125 mL/hr sodium chloride 0.9% infusion 100 mL/hr, intravenous, Continuous, Starting on Wed11/21/21 at 1715 New 11/22/2021 5:35 AM CDT 100 mL/hr 100 mL/hr Rate/Dose Verify 11/22/2021 4:00 AM CDT 100 mL/hr 100 mL/ hr Rate/Dose Verify 11/22/2021 12:00 AM CDT 100 mL/hr 100 mL /hr documented in this encounter Active and Recently Administered Medications Times are shown in CDT. Scheduled Medication Order 11/20/2021 11/21/2021 11/22/2021 docusate sodium (COLACE) capsule 100 mg 100 mg, oral, 2 times daily, First dose on Wed11/20/21 at 0900, Hold for diarrhea., Indications: constipation 830 (Not Given - Provider: Kailyn Taylor RN - Reason: Patient/family refused)2051 (Not Given - Provider: Marina Elizondo RN - Reason: Patient/family refused) 832 (Not Given - Provider: Мария Page RN - Reason: Patient/family refused)1999 (Not Given - Provider: Hilaria Fuchs RN - Reason: Patient/family refused) 0832 (Not Given - Provider: Lawanda Campa RN - Reason: Patient/family refused) droperidoL (INAPSINE) injection 1.25 mg (COMPLETED) 1.25 mg, intravenous, Administer over 5 Minutes, Once, On Wed11/19/21 at 2201, For 1 dose 0022 (Given - Provider: Truman Nelson RN) enoxaparin (LOVENOX) syringe 40 mg 40 mg, subcutaneous, Daily (for enoxaparin), First dose on Wed11/20/21 at 2100, Indications: Deep Vein Thrombosis Prevention 2050 (Not Given - Provider: Marina Elizondo RN - Reason: Patient/family refused) 1999 (Not Given - Provider: Hilaria Fuchs RN - Reason: Patient/family refused) insulin lispro (HumaLOG, ADMELOG) 100 unit/mL pen injection 0-5 Units 0-5 Units, subcutaneous, Every 4 hours scheduled, First dose on Wed11/20/21 at 0000, Blood glucose mg/dL: 149 or less: No [...] units prior to administration., Indications: Diabetes Mellitus 0000 (Due)0405 (Given - Provider: Cortney Chou RN)0948 (Given - Provider: Kailyn Taylor, MARY)1316 (Given - Provider: Kailyn Taylor, RN)1656 (Given - Provider: Kailyn Taylor, RN)2049 (Given - Provider: Marina Elizondo, MARY)2359 (Given - Provider: Marina Elizondo, MARY) 0407 (Given - Provider: Peyton [place] RN)0833 (Given - Provider: Мария Page RN)1210 (Given - Provider: Мария Page RN)1627 (Given - Provider: Annette Alvarenga, RN)1999 (Given - Provider: Hilaria Fuchs, MARY) 002 (Given - Provider: Hilaria Fuchs RN)0353 (Given - Provider: Hilaria Fuchs RN)0833 (Given - Provider: Lawanda Campa, RN)1218 (Given - Provider: Laawnda Campa, RN) metoclopramide (REGLAN) injection 10 mg (CANCELED) 10 mg, intravenous, Every 8 hours scheduled, First dose on Wed11/20/21 at 0600 0631 (Not Given - Provider: Avi Kirkland RN - Reason: Patient/family refused)1314 (Given - Provider: Kailyn Taylor, MARY)2051 (Not Given - Provider: Marina Elizondo RN - Reason: Patient/family refused) 0659 (Not Given - Provider: Peyton [place] RN - Reason: Patient/family refused) metoprolol (LOPRESSOR) injection 5 mg (CANCELED) 5 mg, intravenous, Administer over 1 Minutes, Every 12 hours scheduled, First dose on Wed11/21/21 at 1400 1431 (Given - Provider: Маиря Page RN) metoprolol (LOPRESSOR) injection 5 mg 5 mg, intravenous, Administer over 1 Minutes, Every 6 hours scheduled, First dose (after last modification) on Wed11/21/21 at 1800, Hold for SBP <110 Hold for HR <50 1750 (Not Given - Provider: Annette Alvarenga RN - Reason: Contraindicated - Comment: asked doctor, told to wait for next scheduled dose since pt was given some this afternoon) 002 (Given - Provider: Hilaria Fuchs RN)0536 (Given - Provider: Hilaria Fuchs, RN)1215 (Given - Provider: Lawanda Campa, MARY) sodium chloride 0.9% bolus 1,000 mL (COMPLETED) 1,000 mL, intravenous, at 1,000 mL/hr, Administer over 1 Hours, Once, On Wed11/20/21 at 0200, For 1 dose 0211 (New Bag - Provider: Truman Nelson RN)0353 (Stopped - Provider: Cortney Chou, MARY) sodium chloride 0.9% bolus 1,000 mL (COMPLETED) 1,000 mL, intravenous, at 1,000 mL/hr, Administer over 1 Hours, Once, On Wed11/20/21 at 1215, For 1 dose 1313 (New Bag - Provider: Kailyn Taylor, RN) sodium chloride 0.9% bolus 500 mL (COMPLETED) 500 mL, intravenous, at 500 mL/hr, Administer over 1 Hours, Once, On Wed11/20/21 at 0900, For 1 dose 0832 (New Bag - Provider: Kailyn Taylor, RN) Continuous Medication Order 11/20/2021 11/21/2021 11/22/2021 sodium chloride 0.9% infusion (CANCELED) 125 mL/hr, intravenous, Continuous, Starting on Wed11/20/21 at 0645, For 24 hours 0635 (New Bag - Provider: Avi Kirkland RN)1830 (New Bag - Provider: Marina Elizondo RN)2306 (Handoff - Provider: Marina Elizondo RN) 0149 (New Bag - Provider: Marina Elizondo RN)0708 (Stopped - Provider: Peyton [place] RN) sodium chloride 0.9% infusion 100 mL/hr, intravenous, Continuous, Starting on Wed11/21/21 at 1715 1700 (Restarted - Provider: Annette Alvarenga, MARY)1959 (New Bag - Provider: Hilaria Fucsh RN)2000 (Rate/Dose Verify - Provider: Hilaria Fuchs RN)2200 (Rate/Dose Verify - Provider: Hilaria Fuchs RN) 0000 (Rate/Dose Verify - Provider: Hilaria Fuchs RN)0400 (Rate/Dose Verify - Provider: Hilaria Fuchs RN)0535 (New Bag - Provider: Hilaria Fuchs RN)1816 (Due: Stopped) PRN Medication Order 11/20/2021 11/21/2021 11/22/2021 acetaminophen (TYLENOL) tablet 650 mg 650 mg, oral, Every 4 hours PRN, 1st line for pain, Starting on Wed11/20/21 at 0351, Indications: Pain bisacodyL (DULCOLAX) suppository 10 mg 10 mg, rectal, Daily PRN, constipation, If no results 24 hours after polyethylene glycol (MIRALAX). May give bisacodyl tablet if tolerating PO., Starting on Wed11/20/21 at 0351, Indications: constipation bisacodyl EC (DULCOLAX EC) tablet 10 mg 10 mg, oral, Daily PRN, constipation, If no results 24 hours after polyethylene glycol (MIRALAX). May give bisacodyl supp if not tolerating PO), Starting on Wed11/20/21 at 0351, Do not crush, chew, cut, dissolve, open or otherwise manipulate tablet/capsule., Indications: constipation dextrose (D10W) 10% bolus 250 mL(Linked Group 1) 250 mL, intravenous, at 1,000 mL/hr, Administer over 15 Minutes, Every 15 min PRN, blood glucose less than 70 mg/dL and UNABLE to swallow/take PO glucose/juice., Starting on Wed11/19/21 at 2304, After treatment for hypoglycemia, recheck BG followed [...] glucose less than 70 mg/dL, Starting on Wed11/19/21 at 2304, If patient is alert and able to [...] each episode of hypoglycemia., Indications: hypoglycemic disorder droperidoL (INAPSINE) injection 1.25 mg 1.25 mg, intravenous, Administer over 5 Minutes, Every 6 hours PRN, nausea, vomiting, Second line, Starting on Wed11/20/21 at 0351 glucagon injection 1 mg 1 mg, intramuscular, Every 30 min PRN, low blood sugar, blood glucose less than 70 mg/dL AND no IV access AND unable to take PO glucose/juice., Starting on Wed11/19/21 at 2304, After Glucagon is administered, position patient on [...] 1 mL SWFI. Use immediately following reconstitution. ketorolac (TORADOL) 15 mg/mL injection 15 mg 15 mg, intravenous, Every 6 hours PRN, 1st line for pain, If not tolerating p.o., Starting on Wed11/20/21 at 0351, For 3 doses, For Adult IV push, administer over 15 seconds ondansetron (ZOFRAN) injection 4 mg(Linked Group 2) 4 mg, intravenous, Administer over 2 Minutes, Every 6 hours PRN, nausea, vomiting, if not tolerating PO, Starting on Wed11/20/21 at 0351, Indications: Nausea and Vomiting ondansetron ODT (ZOFRAN-ODT) disintegrating tablet 4 mg(Linked Group 2) 4 mg, oral, Every 6 hours PRN, nausea, vomiting, Starting on Wed11/20/21 at 0351, Indications: Nausea and Vomiting polyethylene glycol (MIRALAX) packet 17 g 17 g, oral, Daily PRN, constipation, Starting on Wed11/20/21 at 0351, Indications: constipation Linked Groups Order Group 1: dextrose gel in packet 15 gJump to med 15 g, oral, Every 15 min PRN, low blood sugar, blood glucose less than 70 mg/dL, Starting on Wed11/19/21 at 2304, If patient is alert and able to [...] UNABLE to swallow/take PO glucose/juice., Starting on Wed11/19/21 at 2304, After treatment for hypoglycemia, recheck BG followed [...] 6 hours PRN, nausea, vomiting, Starting on Wed11/20/21 at 0351, Indications: Nausea and Vomiting Or ondansetron (ZOFRAN) injection 4 mgJump to med 4 mg, intravenous, Administer over 2 Minutes, Every 6 hours PRN, nausea, vomiting, if not tolerating PO, Starting on Wed11/20/21 at 0351, Indications: Nausea and Vomiting documented in this encounter Orders Medications Ordered That Evan ht Not Have Been Administered Count Last Ordered Date First Ordered Date metoprolol tartrate (LOPRESS OR) immediate release tablet 12.5 mg 1 11/21/2021 acetaminophen (TYLENOL) tablet 650 mg 1 bisacodyL (DULCOLAX) suppository 10 mg 1 bisacodyl EC (DULCOLAX EC) tablet 10 mg 1 0 11/20/2021 docusate sodium (COLACE) capsule 100 mg 1 0 11/20/2021 droperidoL (INAPSINE) injection 1.25 mg 1 0 11/20/2021 enoxaparin (LOVENOX) syringe 40 mg 1 2021 ketorolac (TORADOL) 15 mg/mL injection 15 mg 1 11/20/2021 metoprolol (LOPRESSOR) injection 10 mg 1 ondansetron (ZOFRAN) injection 4 mg 2 11/2011/19/2021 ondansetron ODT (ZOFRAN-ODT) disintegrating tablet 4 mg 1 11/20/2021 polyethylene glycol (MIRALAX) packet 17 g 1 11/20/2021 dextrose (D10W) 10% bolus 250 mL 1 11/20/19 dextrose gel in packet 15 g 1 11/19/2021 glucagon injection 1 mg 1 11/19/2021 sodium chloride 0.9% bolus 1,000 mL 1 11/19 Lab Orders Without Results Count Last Ordered D ate First Ordered Date POCT GLUCOSE DEVICE 15 11/22/2021 11/20/19 EKG Orders Without Results Count Last Ordered D ate First Ordered Date ECG 12-LEAD 1 11/19/2021 Diet Count Last Ordered Date First Orde red Date ADULT DISCHARGE DIET 1 11/22/2021 Nursing Count Last Ordered Date First Orde red Date DISCHARGE ACTIVITY 2 11/22/2021 DISCHARGE CALL PROVIDER 1 11/22/2021 FOLLOW UP WITH ESTABLISHED PROVIDER 2 11/22 IV Count Last Ordered Date First Orde red Date SALINE LOCK IV 1 11/19/2021 Transfer Count Last Ordered Date First Orde red Date TRANSFER PATIENT 1 11/20/2021 ADT Patient Update Count Last Ordered Date Firs t Ordered Date ED IP DECISION TO ADMIT 1 11/20/2021 documented in this encounter Additional Health Concerns Infection Onset Date Last Indicated Resolved Time COVID: Suspected 11/20/2021 11/20/2021 11/20/2021 2:13 AM CDT documented as of this encounter Care Teams Shipping Support Clerk Relationship Specialty Start Date End Date No, Physician PCP - General 07/20/21 11/19/21 Nicole Lopez DO [address] [facility] [address] [place] [address] PCP - General Family Medicine 11/20/21 11/20/21 Deena Physician PCP - General 11/21/21 02/01/22 Warren Phillips MD Consulting Physician Gastroenterology 02/16/19 Miscellaneous, Not In File 07/23/21 Nicole Lopez DO [address] [place] [address] [place] [address] Resident Family Medicine 11/22/21 Naomi Sanches MD [address] [place] [address] [place] [address] Referring Physician General Surgery 11/22/21 documented as of this encounter
--- OUTSIDE RECORDS SUMMARY | 2024-05-10 18:37 | XMS_ITS | Encounter Summary ---
Author Organization [facility] Address [address] [place] [address] Care Team Providers Care Senior Project Accountant Name Role Phone Carrie Jospeh Primary Care Provider + Warren Phillips MD Unavailable Reason for Visit * Reason Comments Vomiting Encounter Details Date Type Department Care Team (Latest Contact Info) Description 04/27/2021 9:29 PM COMPETENCY EVALUATED NURSE AIDE - 04/29/2021 12:30 PM COMPETENCY EVALUATED NURSE AIDE Hospital Encounter [facility] [address] [place] [address] Dre Mancuso MD [address] [place] [address] [address] [place], [place] [id number] Lawson Hair MD [address] [place] [address] [place] [address] Zander Stern MD [address] [place] [address] [place] [address] Mukesh Champion MD [address] [place] [address] [place] [address] Cally Crespo MD [address] [place] [address] [place] [id number] Diabetic ketoacidosis without coma associated with type 1 diabetes mellitus (CMS/HCC) (HCC) (Primary Dx); UTI (urinary tract infection), bacterial; Sinus tachycardia; Hypophosphatemia; Intractable vomiting with nausea Discharge Disposition: Discharge to home or self care Social History Tobacco Use Types Packs/Day Years Used Date Smoking Tobacco: Never Smokeless Tobacco: Never Alcohol Use Standard Drinks/Week Comments Not Currently 0 (1 standard drink = 0.6 oz pur e alcohol) AUDIT-C Answer Date Recorded Q1: How often do you have a drink containing alc ohol? Monthly or less 04/28/2021 Q2: How many drinks containi ng alcohol do you have on a typical day when you are drinking? 1 or 2 04/28/2021 Q3: How often do you have si x or more drinks on one occasion? Never 04/28/2021 PHQ-2 Answer Date Recorded PHQ-2 Total Score (If total score is 3 or more points, staff should administer the PHQ-9) 0 03/13/2020 Comments No Sex and Gender Information Value Date Recorded Sex Assigned at Not on file Legal Sex Female 3:13 AM COMPETENCY EVALUATED NURSE AIDE Gender Identity Not on file Sexual Orientation Not on file documented as of this encounter Last Filed Vital Signs Vital Sign Reading Time Taken Comments Blood Pressure 119/77 04/29/2021 11:30 AM COMPETENCY EVALUATED NURSE AIDE Pulse 97 04/29/2021 11:30 AM COMPETENCY EVALUATED NURSE AIDE Temperature 36.4 ??C (97.5 ??F) 04/29/2021 1 1:30 AM COMPETENCY EVALUATED NURSE AIDE Respiratory Rate 18 04/29/2021 11:3 0 AM COMPETENCY EVALUATED NURSE AIDE Oxygen Saturation 100% 04/29/2021 11: 30 AM COMPETENCY EVALUATED NURSE AIDE Inhaled Oxygen Concentration - - Weight 76.5 kg (168 lb 11.2 oz) 021 11:04 AM COMPETENCY EVALUATED NURSE AIDE Height 154.9 cm (5' 0.98 ) 04/28/2021 1 1:04 AM COMPETENCY EVALUATED NURSE AIDE Body Mass Index 31.89 04/28/2021 11:04 AM COMPETENCY EVALUATED NURSE AIDE documented in this encounter Discharge Diagnoses Diagnosis Type 1 diabetes mellitus with ketoacidosis without coma (HCC) - TYPE 1 DIABETES MELLITUS WITH KETOACIDOSIS WITHOUT COMA Other disorders of phosphorus metabolism - OTHER DISORDERS OF PHOSPHORUS METABOLISM Elevated white blood cell count, unspecified - ELEVATED WHITE BLOOD CELL COUNT, UNSPECIFIED Cyclical vomiting syndrome unrelated to migraine - CYCLICAL VOMITING SYNDROME UNRELATED TO MIGRAINE Tachycardia, unspecified - TACHYCARDIA, UNSPECIFIED Depression, unspecified - DEPRESSION, UNSPECIFIED Contact with and (suspected) exposure to covid-19 - CONTACT WITH AND (SUSPECTED) EXPOSURE TO COVID-19 half-way (current) use of insulin (HCC) - 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 OPERATOR (CURRENT) USE OF INSULIN documented in this encounter Discharge Summaries * Arcelia Anthony MD - 04/29/2021 11:51 AM CST Inpatient Discharge Summary BRIEF OVERVIEW Admitting Provider: Zander Stern MD Discharge Provider: Cally Crespo MD Primary Care Physician at Discharge: Carrie Joseph PA [phone] Admission Date: 04/27/2021 Discharge Date: 04/29/2021 Date of Service: 04/29/2021 Primary Discharge Diagnosis: Diabetic ketoacidosis without coma associated with type 1 diabetes mellitus (CMS/HCC) (HCC) Secondary Discharge Diagnosis: Principal Problem: Diabetic ketoacidosis without coma associated with type 1 diabetes mellitus (CMS/HCC) (HCC) Active Problems: Leukocytosis DETAILS OF HOSPITAL STAY Presenting Problem/History of Present Illness: Diabetic ketoacidosis without coma associated with type 1 diabetes mellitus (CMS/HCC) (HCC) 25 year old with uncontrolled type 1 DM, recent DKA presenting with nausea with unclear source of DKA; nausea started on 04/27. Pt denies any abdominal pain. Pt states that she is compliant with her insulin and has not missed any doses. PT denies any urinary change. Denies any fever or chills. Denies any headache, chest pain, SOB, cough. Hospital Course: Patient presented to the ED on 04/28 with complaints of nausea and vomiting stating that she is in DKA. Viral panel was negative. On admission patient's blood glucose level was 259 with an anion gap of 23. Lactate was normal. Urinalysis positive for 4+ ketones, 2+ leukocyte esterase. Consult to communications media professor was made. Hemoglobin A1c 6.7. Beta hydroxybutyrate 3.4. Patient was given a dose of ceftriaxone due to possible urinary tract infection since, and presence of leukocytosis. Patient was placedon insulin drip. Patient was transitioned to IV insulin to continue with D5 half normal. Patient was admitted for further follow-up, transitioned to Lantus. Lispro on a sliding scale. Active Issues Requiring Follow-up: Type 1 DM Test Results Pending at Discharge: Pending Labs Order Current Status Basic metabolic panel In process Operative Procedures Performed: none Pertinent Test Results: HgA1c- 6.7 ECG 12 lead Result Date: 04/28/2021 Narrative: Vent Rate: 137 bpm RR Interval: 435 msec CO Interval: 100 msec QRS Duration: 70 msec QT Interval: 277 msec QTC Interval: 357 msec P-R-T Chalfont: 81 - 97 - 52 degrees SINUS TACHYCARDIA WITH SHORT CO INTERVAL BORDERLINE RIGHT AXIS DEVIATION [QRS AXIS > 90] MODERATE ST DEPRESSION [0.05+ mV ST DEPRESSION] ABNORMAL ECG Compared to prior EKG, ST segment changes are slightly more evident Electronically Signed By: Dariel Hsu MD Discharge Details Physical Exam at Discharge: Discharge Condition: improved and stable. Pulse: 97 Resp: 18 BP: 119/77 Temp: 36.4 ??C (97.5 ??F) Pertinent Exam Findings at Discharge: Patient no acute distress, alert and oriented x4. Lungs clearis to auscultation with good air movement, heart regular rate and rhythm, abdomen nontender nondistended bowel sounds positive. Discharge Disposition: Discharge to home or self care Code Status at Discharge: Full Code Discharge Instructions: Activity Instructions Discharge activity: Resume normal activity Diet Instructions Adult Discharge Diet Diet Type: Return to previous diet Other Instructions Call provider for: difficulty breathing or chest pain Call provider for: persistent nausea or vomiting Call provider for: severe uncontrolled pain Discharge Medications: Your medication list CONTINUE taking these medications insulin glargine 100 unit/mL (3 mL) pen for injection Commonly known as: LANTUS, BASAGLAR, SEMGLEE insulin lispro 100 unit/mL vial for injection Commonly known as: HumaLOG, ADMELOG insulin syringe-needle U-100 0.3 mL 31 gauge x 5/16 syringe OneTouch Verio test strips strip Generic drug: blood glucose diagnostic TechLITE Insuln Syr(half unit) 0.3 mL 31 gauge x 5/16 syringe Generic drug: insulin syr/ndl U100 half jeremias Outpatient Follow-Up: No future appointments. TOTAL TIME SPENT ON DAY OF DISCHARGE 30 MINUTES Arcelia Anthony MD Family Medicine PGY-1 [facility] Family Medicine Residency 04/29/2021 11:51 AM Cosigned by Cally Crespo MD at 04/29/2021 3:58 PM COMPETENCY EVALUATED NURSE AIDE ETENCY EVALUATED NURSE AIDE ETENCY EVALUATED NURSE AIDE Associated attestation - Cally Crespo MD - 04/29/2021 3:58 PM COMPETENCY EVALUATED NURSE AIDE I personally saw and examined the patient on 04/29/2021 and discussed the case with the resident. Ihave reviewed the resident's note and agree with the content and plan as written. Additional information as noted below. Patient treated once again for DKA. Patient does report she will be seeing GI specialist for possible gastroparesis with appointment next week. Patient tolerating diet by time of discharge. Hemoglobin A1c within acceptable range. Was seen by Endocrinology while here. Final physical exam with patient awake and alert. Heart regular rate and rhythm. Lungs are clear. Plan to follow-up with her regular communications media professor at [employer] as an outpatient. Continue home doses of insulin. Additional information asper resident physician discharge summary. Total time spent in discharge: 35 minutes Cally Crespo MD Director of Family Medicine Inpatient Services Heel Gouger, [facility] Family Medicine Residency [facility] documented in this encounter Discharge Instructions * Appointments* Kathryn Nicole, MARY - 04/29/2021 11:50 AM COMPETENCY EVALUATED NURSE AIDE THANK YOU for choosing our team to provide your health care. Your HEALTH AND SAFETY are important to us. We hope you feel your care on SCU was ALWAYS EXCELLENT! Please call [facility] at [phone] if you have any questions regarding your care. Wishing you continued improvement during your recovery. Your Surgical Care Unit Team Paulette Cee Dana, Denise, Liliane, Praveena, Isaura, Kathryn, Mary, Ida, Kirsten, Saul, Hanh Braden, Fay, Abhilash, Candis Padilla Simona, Cathy, Emily. ETENCY EVALUATED NURSE AIDE documented in this encounter Medications at Time of Discharge insulin lispro (HumaLOG) 100 unit/mL injection Inject under the skin 3 (three) times a day before meals Uses per sliding scale 1 unit per every 7-8 grams of carb max of 50 units per day insulin glargine (LANTUS, BASAGLAR, SEMGLEE) 100 unit/mL (3 mL) pen for injection Inject 15 Units under the skin nightly 07/23/2021 insulin syringe-needle U-100 0.3 mL 31 gauge [...] or self care documented in this encounter H&P Notes * Zander Stern MD - 04/28/2021 2:36 PM CST History and Physical Hospitalists services Date of service: 04/28/2021 Primary care provider: Carrie Joseph PA Chief Complaint: Nausea HPI: 25 year old with uncontrolled type 1 DM, recent DKA presenting with nausea with unclear source of DKA; nausea started this AM with no alleviating or exacerbating factors; denies any abdominal pain; states she hasn't missed an insulin dose; seen in ED then in surgical area; feels much better; deniesany urinary symptoms; states she is supposed to see her communications media professor soon. Past Medical History: Diagnosis Date ??? Depression ??? Diabetes mellitus (HCC) T1DM ??? HX OTHER MEDICAL 2011 Diabetes mellitus, type 1 ??? Miscarriage Past Surgical History: Procedure Laterality Date ??? SECTION, CLASSIC 2017 ??? TONSILLECTOMY Bilateral 2002 Medications Prior to Admission Medication Sig Dispense Refill Last Dose ??? insulin glargine (LANTUS, BASAGLAR, SEMGLEE) 100 unit/mL (3 mL) pen for injection Inject 15 Units under the skin nightly 04/27/2021 at Unknown time ??? insulin lispro (HumaLOG) 100 unit/mL injection Inject under the skin 3 (three) times a day before meals Uses per sliding scale 1 unit per every 7-8 grams of carb max of 50 units per day 04/27/2021 at Unknown time ??? insulin syringe-needle U-100 0.3 mL 31 gauge x 5/16 syringe 1 Syringe ??? OneTouch Verio test strips strip USE 1 STRIP TO CHECK GLUCOSE 4 TIMES DAILY ??? TechLITE Insulin Syr Half Unit 0.3 mL 31 gauge x 5/16 syringe USE ONE NEW SYRINGE 4 TIMES No Known Allergies Social History Tobacco Use ??? Smoking status: Never Smoker ??? Smokeless tobacco: Never Used Substance Use Topics ??? Alcohol use: Not Currently Family History Problem Relation Age of Onset ??? Anemia Mother ??? Autism Brother Review of Systems: Review of Systems Constitutional: Positive for fatigue. Negative for activity change, chills, diaphoresis, fever and unexpected weight change. HENT: Negative for rhinorrhea, sneezing, sore throat and trouble swallowing. Eyes: Negative for pain, redness and visual disturbance. Respiratory: Negative for cough, chest tightness, shortness of breath and wheezing. Cardiovascular: Negative for chest pain, palpitations and leg swelling. Gastrointestinal: Positive for nausea. Negative for abdominal distention, abdominal pain, blood in stool, constipation, diarrhea and vomiting. Endocrine: Negative for polydipsia and polyuria. Genitourinary: Negative for difficulty urinating, dysuria, flank pain, hematuria and urgency. Musculoskeletal: Negative for back pain and neck pain. Skin: Negative for pallor and rash. Neurological: Negative for dizziness, tremors, syncope, weakness, light- headedness and headaches. Psychiatric/Behavioral: Negative for confusion and sleep disturbance. OBJECTIVE Vitals: Arrival Vitals Temp 04/27/212056 37.4 ??C (99.3 ??F) Pulse 04/27/212056 (!) 139 Resp 04/27/212056 18 BP 04/27/212056 147/98 SpO2 04/27/212056 99 % Temp src 04/27/212056 Temporal Heart Rate Source 04/28/21 0630 Monitor Patient Position 04/28/21 0630 Lying BP Location 04/28/21 0630 Left arm FiO2 (%) -- 24hr Min/Max: Temp Min: 36.4 ??C (97.5 ??F) Max: 37.4 ??C (99.3 ??F) Pulse Min: 96 Max: 139 BP Min: 111/56 Max: 154/99 Resp Min: 10 Max: 23 SpO2 Min: 97 % Max: 100 % Most Recent : Vitals: 04/28/21 1412 BP: 148/87 Pulse: 102 Resp: 18 Temp: 36.6 ??C (97.9 ??F) SpO2: 100% Intake/Output Summary (Last 24 hours) at 04/28/2021 1436 Last data filed at 04/28/2021 0101 Gross per 24 hour Intake 2000 ml Output -- Net 2000 ml Physical exam: Physical Exam Constitutional: Appearance: Normal appearance. She is normal weight. HENT: Head: Normocephalic and atraumatic. Nose: Nose normal. Mouth/Throat: Mouth: Mucous membranes are moist. Eyes: Extraocular Movements: Extraocular movements intact. Conjunctiva/sclera: Conjunctivae normal. Pupils: Pupils are equal, round, and reactive to light. Cardiovascular: Rate and Rhythm: Normal rate and regular rhythm. Pulses: Normal pulses. Heart sounds: Normal heart sounds. Pulmonary: Effort: Pulmonary effort is normal. Breath sounds: Normal breath sounds. Abdominal: General: Abdomen is flat. Palpations: Abdomen is soft. Musculoskeletal: General: Normal range of motion. Cervical back: Normal range of motion. Skin: General: Skin is warm. Capillary Refill: Capillary refill takes more than 3 seconds. Neurological: General: No focal deficit present. Mental Status: She is alert and oriented to person, place, and time. Mental status is at baseline. Psychiatric: Mood and Affect: Mood normal. Behavior: Behavior normal. Thought Content: Thought content normal. Judgment: Judgment normal. Lab/Radiology/Diagnostic Review: Recent Results (from the past 24 hour(s)) POCT glucose Collection Time: 04/27/21 8:56 PM Result Value Ref Range Glucose, POC 226 (H) 71 - 98 mg/dL Comprehensive metabolic panel Collection Time: 04/27/21 9:20 PM Result Value Ref Range Sodium 133 (L) 135 - 145 mmol/L Potassium, pl 4.5 3.3 - 4.9 mmol/L Chloride 96 (L) 97 - 110 mmol/L CO2 14 (L) 22 - 32 mmol/L Anion gap 23 (H) 2 - 15 mmol/L BUN 19 8 - 25 mg/dL Creatinine 0.39 (L) 0.60 - 1.10 mg/dL Glucose 259 (H) 70 - 199 mg/dL Calcium 10.0 8.5 - 10.3 mg/dL Bilirubin, total 0.7 0.1 - 1.2 mg/dL Protein, pl 7.8 6.5 - 8.5 g/dL Albumin 4.4 3.5 - 5.0 g/dL Alk phos 89 40 - 130 Units/L ALT 29 7 - 45 Units/L AST 23 10 - 45 Units/L eGFR Collection Time: 04/27/21 9:20 PM Result Value Ref Range eGFR 143 mL/min/1.73 m2 CBC with auto differential Collection Time: 04/27/21 9:38 PM Result Value Ref Range WBC 20.8 (H) 3.8 - 9.9 K/cumm Hgb 13.1 11.9 - 15.5 g/dL Hct 42.6 35.6 - 45.5 % Plt 415 (H) 150 - 400 K/cumm MPV 8.9 (L) 9.1 - 12.3 fL RBC 5.12 3.90 - 5.20 M/cumm MCV 83.2 81.3 - 96.4 fL MCH 25.6 (L) 27.1 - 33.3 pg MCHC 30.8 (L) 32.3 - 35.7 g/dL RDW CV 16.3 (H) 11.1 - 14.9 % RDW SD 49.8 (H) 35.7 - 48.1 fL NRBC abs 0.00 0.00 - 0.01 K/cumm Differential, auto Collection Time: 04/27/21 9:38 PM Result Value Ref Range Neutrophil abs 18.4 (H) 1.7 - 6.5 K/cumm Imm gran abs 0.2 (H) 0.0 - 0.1 K/cumm Lymphocyte abs 1.2 0.8 - 3.3 K/cumm Monocyte abs 1.0 (H) 0.2 - 0.8 K/cumm Eosinophil abs 0.0 0.0 - 0.5 K/cumm Basophil abs 0.1 0.0 - 0.1 K/cumm Neutrophil pct 88.5 % Imm gran pct 0.8 % Lymphocyte pct 5.7 % Monocyte pct 4.8 % Eosinophil pct 0.0 % Basophil pct 0.2 % Magnesium Collection Time: 04/27/21 9:38 PM Result Value Ref Range Magnesium 1.8 1.4 - 2.5 mg/dL Phosphorus Collection Time: 04/27/21 9:38 PM Result Value Ref Range Phosphorus, pl 1.7 (L) 2.3 - 4.5 mg/dL Lipase Collection Time: 04/27/21 9:38 PM Result Value Ref Range Lipase 9 (L) 10 - 99 Units/L Ethanol Collection Time: 04/27/21 9:38 PM Result Value Ref Range Ethanol <10 <=10 mg/dL Blood gas, arterial Collection Time: 04/27/21 10:24 PM Result Value Ref Range pH, Art 7.35 7.35 - 7.45 PCO2, Arterial 30 (L) 35 - 45 mmHg PO2, Arterial 95 83 - 108 mmHg HCO3 Art (Calculated) 16 (L) 20 - 30 mmol/L BE, art -8 mmol/L O2 Sat Art (Measured) 98 (H) 90 - 95 % POCT glucose Collection Time: 04/27/21 10:57 PM Result Value Ref Range Glucose, POC 219 (H) 71 - 98 mg/dL POCT glucose Collection Time: 04/28/21 12:17 AM Result Value Ref Range Glucose, POC 133 (H) 71 - 98 mg/dL Basic metabolic panel Collection Time: 04/28/21 12:20 AM Result Value Ref Range Sodium 135 135 - 145 mmol/L Potassium, pl 4.3 3.3 - 4.9 mmol/L Chloride 102 97 - 110 mmol/L CO2 17 (L) 22 - 32 mmol/L Anion gap 16 (H) 2 - 15 mmol/L BUN 17 8 - 25 mg/dL Creatinine 0.38 (L) 0.60 - 1.10 mg/dL Glucose 150 70 - 199 mg/dL Calcium 8.7 8.5 - 10.3 mg/dL eGFR Collection Time: 04/28/21 12:20 AM Result Value Ref Range eGFR 143 mL/min/1.73 m2 Urinalysis reflex to microscopic and culture Urine, clean voided Collection Time: 04/28/21 1:03 AM Specimen: Urine, clean voided Result Value Ref Range Color, ur Yellow Yellow Clarity, ur Clear Clear Specific gravity, ur 1.032 (H) 1.003 - 1.030 pH, urine 5.5 Protein, ur ql Trace Negative Glucose, ur ql 4+ (A) Negative Ketones, ur 4+ (A) Negative Bilirubin, ur Negative Negative Blood, ur Negative Negative Urobilinogen, ur <2.0 <2.0 mg/dL Nitrite, ur Negative Negative Leukocyte esterase, ur 2+ (A) Negative UA reflex comment Reflex to microscopic UA will be performed. Urinalysis, microscopic only Collection Time: 04/28/21 1:03 AM Result Value Ref Range WBC, ur 6-10 (A) 0 - 5 /HPF RBC, ur 0-2 0 - 2 /HPF Epithelial cells, squamous, ur 1-5 0 - 5 /HPF Bacteria, ur Trace (A) Mucous, ur Present (A) Culture Reflex Comment Reflex conditions for urine culture (WBC >10) not met. POCT glucose Collection Time: 04/28/21 1:23 AM Result Value Ref Range Glucose, POC 157 (H) 71 - 98 mg/dL Influenza A/B, RSV, and COVID-19 PCR Nasopharyngeal Collection Time: 04/28/21 1:58 AM Specimen: Nasopharyngeal Result Value Ref Range COVID-19 RNA Negative Negative Influenza A RNA Negative Negative Influenza B RNA Negative Negative RSV RNA Negative Negative First COVID-19 test? No Employeed in healthcare? No status? Unknown Group care resident? No Hospitalized? Yes Is patient in ICU? Unknown Symptomatic as defined by CDC? Yes Basic metabolic panel Collection Time: 04/28/21 4:37 AM Result Value Ref Range Sodium 134 (L) 135 - 145 mmol/L Potassium, pl 4.0 3.3 - 4.9 mmol/L Chloride 102 97 - 110 mmol/L CO2 16 (L) 22 - 32 mmol/L Anion gap 16 (H) 2 - 15 mmol/L BUN 13 8 - 25 mg/dL Creatinine 0.38 (L) 0.60 - 1.10 mg/dL Glucose 216 (H) 70 - 199 mg/dL Calcium 8.7 8.5 - 10.3 mg/dL Blood gas, venous Collection Time: 04/28/21 4:37 AM Result Value Ref Range pH, Venous 7.34 7.32 - 7.43 PCO2, Venous 33 (L) 40 - 50 mmHg PO2, Venous 107 mmHg HCO3 Venous, Calculated 17 (L) 20 - 30 mmol/L BE, venous -7 mmol/L Beta-hydroxybutyrate Collection Time: 04/28/21 4:37 AM Result Value Ref Range Beta-Hydroxybutyrate 3.4 (H) <=0.5 mmol/L eGFR Collection Time: 04/28/21 4:37 AM Result Value Ref Range eGFR 143 mL/min/1.73 m2 POCT glucose Collection Time: 04/28/21 6:39 AM Result Value Ref Range Glucose, POC 158 (H) 71 - 98 mg/dL POCT glucose Collection Time: 04/28/21 7:56 AM Result Value Ref Range Glucose, POC 158 (H) 71 - 98 mg/dL Lactate Collection Time: 04/28/21 8:05 AM Result Value Ref Range Lactate 0.7 0.7 - 2.0 mmol/L Basic metabolic panel Collection Time: 04/28/21 8:06 AM Result Value Ref Range Sodium See comment 135 - 145 mmol/L Potassium, pl See comment 3.3 - 4.9 mmol/L Chloride See comment 97 - 110 mmol/L CO2 See comment 22 - 32 mmol/L Anion gap See comment 2 - 15 mmol/L BUN See comment 8 - 25 mg/dL Creatinine See comment 0.60 - 1.10 mg/dL Glucose See comment 70 - 199 mg/dL Calcium See comment 8.5 - 10.3 mg/dL eGFR Collection Time: 04/28/21 8:06 AM Result Value Ref Range eGFR See comment mL/min/1.73 m2 Basic metabolic panel Collection Time: 04/28/21 9:03 AM Result Value Ref Range Sodium 137 135 - 145 mmol/L Potassium, pl 4.0 3.3 - 4.9 mmol/L Chloride 107 97 - 110 mmol/L CO2 15 (L) 22 - 32 mmol/L Anion gap 15 2 - 15 mmol/L BUN 10 8 - 25 mg/dL Creatinine 0.29 (L) 0.60 - 1.10 mg/dL Glucose 151 70 - 199 mg/dL Calcium 8.0 (L) 8.5 - 10.3 mg/dL eGFR Collection Time: 04/28/21 9:03 AM Result Value Ref Range eGFR 153 mL/min/1.73 m2 POCT glucose Collection Time: 04/28/21 9:09 AM Result Value Ref Range Glucose, POC 132 (H) 71 - 98 mg/dL POCT glucose Collection Time: 04/28/21 11:07 AM Result Value Ref Range Glucose, POC 149 (H) 71 - 98 mg/dL ECG 12 lead Result Date: 04/28/2021 Narrative: Vent Rate: 137 bpm RR Interval: 435 msec CO Interval: 100 msec QRS Duration: 70 msec QT Interval: 277 msec QTC Interval: 357 msec P-R-T Chalfont: 81 - 97 - 52 degrees SINUS TACHYCARDIA WITH SHORT CO INTERVAL BORDERLINE RIGHT AXIS DEVIATION [QRS AXIS > 90] MODERATE ST DEPRESSION [0.05+ mV ST DEPRESSION] ABNORMAL ECG Compared to prior EKG, ST segment changes are slightly more evident Electronically Signed By: Dariel Hsu MD Current Facility-Administered Medications Medication Dose Route Frequency Provider Last Rate Last Admin ??? [START ON 04/29/2021] cefTRIAXone (ROCEPHIN) 1,000 mg/10 mL in sterile water (premix) 1,000 mg 1,000 mg intravenous Q24H Mukesh Stock MD ??? dextrose gel in packet 15 g 15 g oral Q15 Min PRN Mukesh Champion MD Or ??? dextrose (D10W) 10% bolus 250 mL 250 mL intravenous Q15 Min PRN Mukesh Champion MD ??? enoxaparin (LOVENOX) syringe 40 mg 40 mg subcutaneous Daily-2100 Lawson Hair MD ??? glucagon injection 1 mg 1 mg intramuscular Q30 Min PRN Mukesh Champion MD ??? insulin glargine (LANTUS, BASAGLAR, SEMGLEE) 100 unit/mL (3 mL) pen injection 20 Units 20 Unitssubcutaneous Zander Ji MD ??? insulin lispro (HumaLOG, ADMELOG) 100 unit/mL pen injection 0-4 Units 0-4 Units subcutaneous Nightly Mukesh Champion MD ??? insulin lispro (HumaLOG, ADMELOG) 100 unit/mL pen injection 0-5 Units 0-5 Units subcutaneous TID with meals Mukesh Champion MD ??? insulin lispro (HumaLOG, ADMELOG) 100 unit/mL pen injection 3 Units 0.05 Units/kg subcutaneous TID with meals Mukesh Champion MD ??? Lactated Ringer's (LR) infusion 125 mL/hr intravenous Continuous Mukesh Champion MD 125 mL/hr at 04/28/21 1105 125 mL/hr at 04/28/21 1105 ??? ondansetron (ZOFRAN) injection 4 mg 4 mg intravenous Once Lawson Hair MD A/P 1) DKA -No signs lactic acidosis, other ketoacidosis (starving/alcohol), tylenol/aspirin overdose or renalfailure -Unclear if simply needs insulin pump as multiple stays recently -Unclear trigger -No chest pain or hx of CAD, check trop; EKG mild st depression but was tachycardic, f/u trop -COVID neg -Lantus 20U, will do 3U with meals -Consulted endocrine -healthcare educator -Check A1c -Carb controlled diet 2) Type 1 DM -Check A1c to see if uncontrolled 3) Leukocytosis -May be reactive -Sterile pyuria on UA -No urinary symptoms -Stop antibiotics as no source infectious process DVT prophylaxis SCDs Code status Full Anticipated length of stay to be >2 mid MDM High Principal Problem: Diabetic ketoacidosis without coma associated with type 1 diabetes mellitus (CMS/HCC) ([facility]) Resolved Problems: No resolved hospital problems. Discussed with critical care; bicarb went from 14---->19, continue [id number] 125/hr; POCT Q4 hours; monitor on floor; appetite improving. Q6 hours BMP; next one at 11pm. Sliding scale Q4 hours. Voice recognition software [employer] was used dictate and transcribe this document. Degreaser Operator variances may occur. Despite proofreading, typographical errors may occur. Zander Stern MD Date of Service: 04/28/2021 ETENCY EVALUATED NURSE AIDE ETENCY EVALUATED NURSE AIDE ETENCY EVALUATED NURSE AIDE documented in this encounter Consult Notes * Yolette Whyte, TROMMEL TENDER - 04/29/2021 7:32 AM CSTAssociated Order(s): IP CONSULT TO ENDOCRINOLOGY Endocrine Diabetes Consult Reason for Consult: DKA Requesting Provider: Zander Stern. CHIEF COMPLAINT CC: Chief Complaint Patient presents with ??? Vomiting HPI Karina Fuchs is a 25 y.o. female who sees Dr. Saturnino Sanches at [facility] for her Type 1 diabetes. Her last office visit with Dr. Sanches was 11/20 per care everywhere. She has frequent admissions with DKA as a result of cyclic vomiting syndrome. Per EMR, she has been referred to GI- however no documentation supports the visit was completed. Today, she is asleep with an ice pack to her head. Per the nursing staffshe has not had any intake but has not had any vomiting either. Home diabetes regimen as per Dr. Sanches's note- Basaglar??to??15??units at bedtime, humalog??1 unit for??8??gm of CHO before each meal. With Correction of 1:50 ?? BLOOD GLUCOSE (SUGAR) CORRECTION FACTOR: ??1:50?? HUMALOG/NOVOLOG UNDER 70 TREAT LOW, USE RULE OF 15 ?71 - 150 ??+0 UNIT 151 - 200 ??+1 UNIT 201 - 250 ??+2 UNITS 251 - 300 ??+3 UNITS 301 - 350 ??+4 UNITS 351 - 400 ??+5 UNITS ABOVE 400 ??+6 UNITS patient was instructed to reduce bolus insulin by 20% in anticipation of physical activity ?? Past Medical History: Diagnosis Date ??? Depression ??? Diabetes mellitus (HCC) T1DM ??? HX OTHER MEDICAL 2010 Diabetes mellitus, type 1 ??? Miscarriage Past Surgical History: Procedure Laterality Date ??? SECTION, CLASSIC 2016 ??? TONSILLECTOMY Bilateral 2002 Medications Prior to Admission Medication Sig Dispense Refill Last Dose ??? insulin glargine (LANTUS, BASAGLAR, SEMGLEE) 100 unit/mL (3 mL) pen for injection Inject 15 Units under the skin nightly 04/27/2021 at Unknown time ??? insulin lispro (HumaLOG) 100 unit/mL injection Inject under the skin 3 (three) times a day before meals Uses per sliding scale 1 unit per every 7-8 grams of carb max of 50 units per day 04/27/2021 at Unknown time ??? insulin syringe-needle U-100 0.3 mL 31 gauge x 5/16 syringe 1 Syringe ??? OneTouch Verio test strips strip USE 1 STRIP TO CHECK GLUCOSE 4 TIMES DAILY ??? TechLITE Insulin Syr Half Unit 0.3 mL 31 gauge x 5/16 syringe USE ONE NEW SYRINGE 4 TIMES Current Facility-Administered Medications Medication Dose Route Frequency Provider Last Rate Last Admin ??? dextrose gel in packet 15 g 15 g oral Q15 Min PRN Mukesh Champion MD Or ??? dextrose (D10W) 10% bolus 250 mL 250 mL intravenous Q15 Min PRN Mukesh Champion MD ??? dextrose 5% and Lactated Ringer's infusion 125 mL/hr intravenous Continuous Zander Stern MD 125 mL/hr at 04/29/21 0545 125 mL/hr at 04/29/21 0545 ??? enoxaparin (LOVENOX) syringe 40 mg 40 mg subcutaneous Daily-2100 Lawson Hair MD ??? glucagon injection 1 mg 1 mg intramuscular Q30 Min PRN Mukesh Champion MD ??? insulin glargine (LANTUS, BASAGLAR, SEMGLEE) 100 unit/mL (3 mL) pen injection 18 Units 18 Units subcutaneous QAM Zander Stern MD ??? insulin lispro (HumaLOG, ADMELOG) 100 unit/mL pen injection 0-4 Units 0-4 Units subcutaneous Nightly Mukesh Champion MD ??? insulin lispro (HumaLOG, ADMELOG) 100 unit/mL pen injection 0-5 Units 0-5 Units subcutaneous Q4H Zander Stern MD 2 Units at 04/29/21 0401 ??? insulin lispro (HumaLOG, ADMELOG) 100 unit/mL pen injection 3 Units 0.05 Units/kg subcutaneous TID with meals Mukesh Champion MD No Known Allergies Social History Tobacco Use ??? Smoking status: Never Smoker ??? Smokeless tobacco: Never Used Substance Use Topics ??? Alcohol use: Not Currently Family History Problem Relation Age of Onset ??? Anemia Mother ??? Autism Brother REVIEW OF SYSTEMS Review of Systems Constitutional: Negative for activity change, appetite change, fatigue and unexpected weight change. HENT: Negative for congestion and sinus pressure. Eyes: Negative for pain and visual disturbance. Respiratory: Negative for cough, shortness of breath and wheezing. Cardiovascular: Negative for chest pain and leg swelling. Gastrointestinal: Negative for abdominal pain, diarrhea, nausea and vomiting. Endocrine: Negative for polydipsia, polyphagia and polyuria. Genitourinary: Negative for difficulty urinating and frequency. Musculoskeletal: Negative for arthralgias. Neurological: Negative for dizziness and numbness. Psychiatric/Behavioral: Negative for confusion. The patient is not nervous/anxious. Objective Vitals: 24hr Min/Max: Temp Min: 36.2 ??C (97.1 ??F) Max: 36.8 ??C (98.3 ??F) Pulse Min: 68 Max: 116 BP Min: 118/82 Max: 152/98 Resp Min: 11 Max: 22 SpO2 Min: 99 % Max: 100 % Most Recent : Vitals: 04/29/21 0000 04/29/21 0200 04/29/21 0400 04/29/21 0600 BP: 122/77 BP Location: Right arm Patient Position: Pulse: 82 86 97 89 Resp: 16 Temp: 36.4 ??C (97.6 ??F) TempSrc: Temporal SpO2: 100% Weight: Height: Physical Exam: Physical Exam Vitals and nursing note reviewed. Constitutional: Appearance: She is normal weight. HENT: Head: Normocephalic and atraumatic. Right Ear: External ear normal. Left Ear: External ear normal. Nose: Nose normal. Cardiovascular: Rate and Rhythm: Normal rate. Pulmonary: Effort: Pulmonary effort is normal. Skin: General: Skin is warm and dry. Neurological: Mental Status: Mental status is at baseline. Lab/Radiology/Diagnostic Review: Reviewed. Recent Results (from the past 48 hour(s)) POCT glucose Collection Time: 04/27/21 8:56 PM Result Value Ref Range Glucose, POC 226 (H) 71 - 98 mg/dL Comprehensive metabolic panel Collection Time: 04/27/21 9:20 PM Result Value Ref Range Sodium 133 (L) 135 - 145 mmol/L Potassium, pl 4.5 3.3 - 4.9 mmol/L Chloride 96 (L) 97 - 110 mmol/L CO2 14 (L) 22 - 32 mmol/L Anion gap 23 (H) 2 - 15 mmol/L BUN 19 8 - 25 mg/dL Creatinine 0.39 (L) 0.60 - 1.10 mg/dL Glucose 259 (H) 70 - 199 mg/dL Calcium 10.0 8.5 - 10.3 mg/dL Bilirubin, total 0.7 0.1 - 1.2 mg/dL Protein, pl 7.8 6.5 - 8.5 g/dL Albumin 4.4 3.5 - 5.0 g/dL Alk phos 89 40 - 130 Units/L ALT 29 7 - 45 Units/L AST 23 10 - 45 Units/L eGFR Collection Time: 04/27/21 9:20 PM Result Value Ref Range eGFR 143 mL/min/1.73 m2 CBC with auto differential Collection Time: 04/27/21 9:38 PM Result Value Ref Range WBC 20.8 (H) 3.8 - 9.9 K/cumm Hgb 13.1 11.9 - 15.5 g/dL Hct 42.6 35.6 - 45.5 % Plt 415 (H) 150 - 400 K/cumm MPV 8.9 (L) 9.1 - 12.3 fL RBC 5.12 3.90 - 5.20 M/cumm MCV 83.2 81.3 - 96.4 fL MCH 25.6 (L) 27.1 - 33.3 pg MCHC 30.8 (L) 32.3 - 35.7 g/dL RDW CV 16.3 (H) 11.1 - 14.9 % RDW SD 49.8 (H) 35.7 - 48.1 fL NRBC abs 0.00 0.00 - 0.01 K/cumm Differential, auto Collection Time: 04/27/21 9:38 PM Result Value Ref Range Neutrophil abs 18.4 (H) 1.7 - 6.5 K/cumm Imm gran abs 0.2 (H) 0.0 - 0.1 K/cumm Lymphocyte abs 1.2 0.8 - 3.3 K/cumm Monocyte abs 1.0 (H) 0.2 - 0.8 K/cumm Eosinophil abs 0.0 0.0 - 0.5 K/cumm Basophil abs 0.1 0.0 - 0.1 K/cumm Neutrophil pct 88.5 % Imm gran pct 0.8 % Lymphocyte pct 5.7 % Monocyte pct 4.8 % Eosinophil pct 0.0 % Basophil pct 0.2 % Magnesium Collection Time: 04/27/21 9:38 PM Result Value Ref Range Magnesium 1.8 1.4 - 2.5 mg/dL Phosphorus Collection Time: 04/27/21 9:38 PM Result Value Ref Range Phosphorus, pl 1.7 (L) 2.3 - 4.5 mg/dL Lipase Collection Time: 04/27/21 9:38 PM Result Value Ref Range Lipase 9 (L) 10 - 99 Units/L Ethanol Collection Time: 04/27/21 9:38 PM Result Value Ref Range Ethanol <10 <=10 mg/dL Blood gas, arterial Collection Time: 04/27/21 10:24 PM Result Value Ref Range pH, Art 7.35 7.35 - 7.45 PCO2, Arterial 30 (L) 35 - 45 mmHg PO2, Arterial 95 83 - 108 mmHg HCO3 Art (Calculated) 16 (L) 20 - 30 mmol/L BE, art -8 mmol/L O2 Sat Art (Measured) 98 (H) 90 - 95 % POCT glucose Collection Time: 04/27/21 10:57 PM Result Value Ref Range Glucose, POC 219 (H) 71 - 98 mg/dL POCT glucose Collection Time: 04/28/21 12:17 AM Result Value Ref Range Glucose, POC 133 (H) 71 - 98 mg/dL Basic metabolic panel Collection Time: 04/28/21 12:20 AM Result Value Ref Range Sodium 135 135 - 145 mmol/L Potassium, pl 4.3 3.3 - 4.9 mmol/L Chloride 102 97 - 110 mmol/L CO2 17 (L) 22 - 32 mmol/L Anion gap 16 (H) 2 - 15 mmol/L BUN 17 8 - 25 mg/dL Creatinine 0.38 (L) 0.60 - 1.10 mg/dL Glucose 150 70 - 199 mg/dL Calcium 8.7 8.5 - 10.3 mg/dL eGFR Collection Time: 04/28/21 12:20 AM Result Value Ref Range eGFR 143 mL/min/1.73 m2 Urinalysis reflex to microscopic and culture Urine, clean voided Collection Time: 04/28/21 1:03 AM Specimen: Urine, clean voided Result Value Ref Range Color, ur Yellow Yellow Clarity, ur Clear Clear Specific gravity, ur 1.032 (H) 1.003 - 1.030 pH, urine 5.5 Protein, ur ql Trace Negative Glucose, ur ql 4+ (A) Negative Ketones, ur 4+ (A) Negative Bilirubin, ur Negative Negative Blood, ur Negative Negative Urobilinogen, ur <2.0 <2.0 mg/dL Nitrite, ur Negative Negative Leukocyte esterase, ur 2+ (A) Negative UA reflex comment Reflex to microscopic UA will be performed. Urinalysis, microscopic only Collection Time: 04/28/21 1:03 AM Result Value Ref Range WBC, ur 6-10 (A) 0 - 5 /HPF RBC, ur 0-2 0 - 2 /HPF Epithelial cells, squamous, ur 1-5 0 - 5 /HPF Bacteria, ur Trace (A) Mucous, ur Present (A) Culture Reflex Comment Reflex conditions for urine culture (WBC >10) not met. POCT glucose Collection Time: 04/28/21 1:23 AM Result Value Ref Range Glucose, POC 157 (H) 71 - 98 mg/dL Influenza A/B, RSV, and COVID-19 PCR Nasopharyngeal Collection Time: 04/28/21 1:58 AM Specimen: Nasopharyngeal Result Value Ref Range COVID-19 RNA Negative Negative Influenza A RNA Negative Negative Influenza B RNA Negative Negative RSV RNA Negative Negative First COVID-19 test? No Employeed in healthcare? No status? Unknown Group care resident? No Hospitalized? Yes Is patient in ICU? Unknown Symptomatic as defined by CDC? Yes Basic metabolic panel Collection Time: 04/28/21 4:37 AM Result Value Ref Range Sodium 134 (L) 135 - 145 mmol/L Potassium, pl 4.0 3.3 - 4.9 mmol/L Chloride 102 97 - 110 mmol/L CO2 16 (L) 22 - 32 mmol/L Anion gap 16 (H) 2 - 15 mmol/L BUN 13 8 - 25 mg/dL Creatinine 0.38 (L) 0.60 - 1.10 mg/dL Glucose 216 (H) 70 - 199 mg/dL Calcium 8.7 8.5 - 10.3 mg/dL Blood gas, venous Collection Time: 04/28/21 4:37 AM Result Value Ref Range pH, Venous 7.34 7.32 - 7.43 PCO2, Venous 33 (L) 40 - 50 mmHg PO2, Venous 107 mmHg HCO3 Venous, Calculated 17 (L) 20 - 30 mmol/L BE, venous -7 mmol/L Beta-hydroxybutyrate Collection Time: 04/28/21 4:37 AM Result Value Ref Range Beta-Hydroxybutyrate 3.4 (H) <=0.5 mmol/L eGFR Collection Time: 04/28/21 4:37 AM Result Value Ref Range eGFR 143 mL/min/1.73 m2 POCT glucose Collection Time: 04/28/21 6:39 AM Result Value Ref Range Glucose, POC 158 (H) 71 - 98 mg/dL POCT glucose Collection Time: 04/28/21 7:56 AM Result Value Ref Range Glucose, POC 158 (H) 71 - 98 mg/dL Lactate Collection Time: 04/28/21 8:05 AM Result Value Ref Range Lactate 0.7 0.7 - 2.0 mmol/L Beta-hydroxybutyrate Collection Time: 04/28/21 8:05 AM Result Value Ref Range Beta-Hydroxybutyrate 1.5 (H) <=0.5 mmol/L Hemoglobin A1c Collection Time: 04/28/21 8:05 AM Result Value Ref Range Hgb A1C 6.7 (H) 4.0 - 5.6 % Estimated Average Glucose 146 mg/dL Basic metabolic panel Collection Time: 04/28/21 8:06 AM Result Value Ref Range Sodium See comment 135 - 145 mmol/L Potassium, pl See comment 3.3 - 4.9 mmol/L Chloride See comment 97 - 110 mmol/L CO2 See comment 22 - 32 mmol/L Anion gap See comment 2 - 15 mmol/L BUN See comment 8 - 25 mg/dL Creatinine See comment 0.60 - 1.10 mg/dL Glucose See comment 70 - 199 mg/dL Calcium See comment 8.5 - 10.3 mg/dL eGFR Collection Time: 04/28/21 8:06 AM Result Value Ref Range eGFR See comment mL/min/1.73 m2 Basic metabolic panel Collection Time: 04/28/21 9:03 AM Result Value Ref Range Sodium 137 135 - 145 mmol/L Potassium, pl 4.0 3.3 - 4.9 mmol/L Chloride 107 97 - 110 mmol/L CO2 15 (L) 22 - 32 mmol/L Anion gap 15 2 - 15 mmol/L BUN 10 8 - 25 mg/dL Creatinine 0.29 (L) 0.60 - 1.10 mg/dL Glucose 151 70 - 199 mg/dL Calcium 8.0 (L) 8.5 - 10.3 mg/dL eGFR Collection Time: 04/28/21 9:03 AM Result Value Ref Range eGFR 153 mL/min/1.73 m2 POCT glucose Collection Time: 04/28/21 9:09 AM Result Value Ref Range Glucose, POC 132 (H) 71 - 98 mg/dL Drugs of Abuse Screen, Urine without Confirmation Collection Time: 04/28/21 10:43 AM Result Value Ref Range Amphetamine, ur Not [...] Not Detected CutOff 25 ng/mL Urine Creatinine 53 mg/dL POCT glucose Collection Time: 04/28/21 11:07 AM Result Value Ref Range Glucose, POC 149 (H) 71 - 98 mg/dL Basic metabolic panel Collection Time: 04/28/21 12:58 PM Result Value Ref Range Sodium 136 135 - 145 mmol/L Potassium, pl 3.7 3.3 - 4.9 mmol/L Chloride 103 97 - 110 mmol/L CO2 14 (L) 22 - 32 mmol/L Anion gap 19 (H) 2 - 15 mmol/L BUN 8 8 - 25 mg/dL Creatinine 0.34 (L) 0.60 - 1.10 mg/dL Glucose 142 70 - 199 mg/dL Calcium 7.9 (L) 8.5 - 10.3 mg/dL eGFR Collection Time: 04/28/21 12:58 PM Result Value Ref Range eGFR 147 mL/min/1.73 m2 POCT glucose Collection Time: 04/28/21 4:43 PM Result Value Ref Range Glucose, POC 90 71 - 98 mg/dL Basic metabolic panel Collection Time: 04/28/21 5:11 PM Result Value Ref Range Sodium 134 (L) 135 - 145 mmol/L Potassium, pl 3.4 3.3 - 4.9 mmol/L Chloride 98 97 - 110 mmol/L CO2 19 (L) 22 - 32 mmol/L Anion gap 17 (H) 2 - 15 mmol/L BUN 6 (L) 8 - 25 mg/dL Creatinine 0.29 (L) 0.60 - 1.10 mg/dL Glucose 128 70 - 199 mg/dL Calcium 8.1 (L) 8.5 - 10.3 mg/dL eGFR Collection Time: 04/28/21 5:11 PM Result Value Ref Range eGFR 153 mL/min/1.73 m2 Troponin T high-sensitivity Collection Time: 04/28/21 5:20 PM Result Value Ref Range Trop T hs <6 <=14 ng/L POCT glucose Collection Time: 04/28/21 8:07 PM Result Value Ref Range Glucose, POC 175 (H) 71 - 98 mg/dL Basic metabolic panel Collection Time: 04/28/21 10:47 PM Result Value Ref Range Sodium 133 (L) 135 - 145 mmol/L Potassium, pl 3.5 3.3 - 4.9 mmol/L Chloride 97 97 - 110 mmol/L CO2 20 (L) 22 - 32 mmol/L Anion gap 16 (H) 2 - 15 mmol/L BUN 4 (L) 8 - 25 mg/dL Creatinine 0.27 (L) 0.60 - 1.10 mg/dL Glucose 218 (H) 70 - 199 mg/dL Calcium 8.6 8.5 - 10.3 mg/dL eGFR Collection Time: 04/28/21 10:47 PM Result Value Ref Range eGFR 156 mL/min/1.73 m2 POCT glucose Collection Time: 04/29/21 12:01 AM Result Value Ref Range Glucose, POC 248 (H) 71 - 98 mg/dL POCT glucose Collection Time: 04/29/21 3:54 AM Result Value Ref Range Glucose, POC 229 (H) 71 - 98 mg/dL CBC without differential Collection Time: 04/29/21 3:58 AM Result Value Ref Range WBC 9.1 3.8 - 9.9 K/cumm Hgb 11.6 (L) 11.9 - 15.5 g/dL Hct 34.9 (L) 35.6 - 45.5 % Plt 336 150 - 400 K/cumm MPV 8.8 (L) 9.1 - 12.3 fL RBC 4.44 3.90 - 5.20 M/cumm MCV 78.6 (L) 81.3 - 96.4 fL MCH 26.1 (L) 27.1 - 33.3 pg MCHC 33.2 32.3 - 35.7 g/dL RDW CV 15.6 (H) 11.1 - 14.9 % RDW SD 44.0 35.7 - 48.1 fL NRBC abs 0.00 0.00 - 0.01 K/cumm Principal Problem: Diabetic ketoacidosis without coma associated with type 1 diabetes mellitus (CMS/HCC) ([facility] [place]) Assessment/Recommendations: Continue Lantus 20 units today at noon, tomorrow at 2100 as she takes her lantus nightly at home. continue humalog 3 units prior to meals and 1:50 correction. - Discharge to home when tolerating po intake Home with Basaglar??to??15??units at bedtime, humalog??1 unit for??8??gm of CHO before each meal. With Correction of 1:50 ?? BLOOD GLUCOSE (SUGAR) CORRECTION FACTOR: ??1:50?? HUMALOG/NOVOLOG UNDER 70 TREAT LOW, USE RULE OF 15 ?71 - 150 ??+0 UNIT 151 - 200 ??+1 UNIT 201 - 250 ??+2 UNITS 251 - 300 ??+3 UNITS 301 - 350 ??+4 UNITS 351 - 400 ??+5 UNITS ABOVE 400 ??+6 UNITS patient was instructed to reduce bolus insulin by 20% in anticipation of physical activity as per Dr. Sanches. Have patient follow up with Dr. Sanches within 1 week of discharge. I will sign off as blood sugars are well controlled on current regimen but will happily return if needed. Yolette Whyte NP 04/29/2021 ETENCY EVALUATED NURSE AIDE ETENCY EVALUATED NURSE AIDE documented in this encounter Nursing Notes * Kathryn Nicole, MARY - 04/29/2021 1:47 PM CST Pt received all discharge instructions and all questions were answered. Pt was assisted to personalvehicle by wheelchair with all belongings in hand ETENCY EVALUATED NURSE AIDE documented in this encounter ED Notes * Dre Mancuso MD - 04/28/2021 12:15 AM CST HPI Chief Complaint Patient presents with ??? Vomiting 25-year-old with a history of diabetes type 1, multiple episodes of DKA here with the complaints ofnot feeling well, nausea and vomiting. Patient states I am in DKA . Patient states that she has been feeling sick since yesterday. She states she has been taking her insulin. No history of fever or chills. Denies any abdominal pain. Patient History: Patient Active Problem List Diagnosis Date Noted ??? Leukocytosis 04/29/2021 ??? Hypophosphatemia ??? Intractable vomiting with nausea ??? Altered mental status 03/04/2021 ??? Diabetic ketoacidosis with coma associated with type 1 diabetes mellitus (CMS/HCC) (HCC) 11/16/2020 ??? Marijuana abuse 11/16/2020 ??? Currently in first trimester with unknown gestational age 1103/26/2020 ??? Intractable vomiting 03/13/2020 ??? Supervision of high-risk 03/06/2020 ??? T1DM in 03/06/2020 ??? Noncompliance with medication regimen 04/26/2019 ??? Diabetic ketoacidosis without coma associated with type 1 diabetes mellitus (CMS/HCC) (HCC) 03/24/2019 ??? Tachycardia 03/24/2019 ??? Diabetic gastroparesis (CMS/HCC) (HCC) 02/14/2019 ??? Depression 02/11/2019 ??? Cannabinoid hyperemesis syndrome 01/02/2018 Past Medical History: Diagnosis Date ??? Depression ??? Diabetes mellitus (HCC) T1DM ??? HX OTHER MEDICAL 2011 Diabetes mellitus, type 1 ??? Miscarriage Past Surgical History: Procedure Laterality Date ??? SECTION, CLASSIC 2016 ??? TONSILLECTOMY Bilateral 2002 Family History Problem Relation Age of Onset ??? Anemia Mother ??? Autism Brother Social History Tobacco Use ??? Smoking status: Never Smoker ??? Smokeless tobacco: Never Used Substance Use Topics ??? Alcohol use: Not Currently ??? Drug use: Yes Types: Marijuana Social History Social History Narrative ??? Not on file Review of Systems Review of Systems Constitutional: Positive for fatigue. HENT: Negative. Respiratory: Negative. Cardiovascular: Negative. Gastrointestinal: Positive for nausea and vomiting. Endocrine: Negative. Genitourinary: Negative. Musculoskeletal: Negative. Neurological: Negative. Hematological: Negative. Psychiatric/Behavioral: Negative. Physical Exam ED Triage Vitals Temp Pulse Resp BP SpO2 04/27/21205604/27/21205604/27/21205604/27/21205604/27/212056 37.4 ??C (99.3 ??F) (!) 139 18 147/98 99 % Temp src Heart Rate Source Patient Position BP Location FiO2 (%) 04/27/21205604/28/2162904/28/2162904/28/21629 -- Temporal Monitor Lying Left arm Physical Exam Vitals and nursing note reviewed. Constitutional: Appearance: She is ill-appearing. HENT: Head: Normocephalic and atraumatic. Eyes: Pupils: Pupils are equal, round, and reactive to light. Cardiovascular: Rate and Rhythm: Tachycardia present. Pulmonary: Effort: Pulmonary effort is normal. Breath sounds: Normal breath sounds. Abdominal: Palpations: Abdomen is soft. Musculoskeletal: General: Normal range of motion. Cervical back: Normal range of motion. Skin: General: Skin is warm. Neurological: General: No focal deficit present. Mental Status: She is alert and oriented to person, place, and time. MDM MDM With a history of nausea, vomiting and multiple episodes of DKA will initiate ED DKA protocol. Patient declined Zofran or Reglan for nausea. ED Course as of 04/29/212015 Time: 04/27 2249 Value: CO2(!): 14 Comment: (Reviewed) By: Dre Mancuso MD Time: 04/28 114 Comment: UA pos for infection --> rocephin ordered HR 122 --> 3rd L NS ordered By: Lawson Hair MD Time: 04/28 115 Value: Glucose, POC(!): 133 Comment: Dr. Hazel stopped insulin gtt By: Lawson Hair MD Time: 04/28 126 Comment: Discussed with Dr. Graham she prefers IV insulin to continue with D5 half-normal repeat BMP in 4 hours she wants anion gap less than 13 By: Dre Mancuso MD Time: 04/28 305 Value: COVID-19 RNA: Negative Comment: (Reviewed) By: Lawson Hair MD Time: 04/28 305 Value: Influenza A RNA: Negative Comment: (Reviewed) By: Lawson Hair MD Time: 04/28 305 Value: Influenza B RNA: Negative Comment: (Reviewed) By: Lawson Hair MD Time: 04/28 305 Value: RSV RNA: Negative Comment: (Reviewed) By: Lawson Hair MD Time: 04/28 335 Comment: Pt refusing antiemetics, still vomiting, won't tolerate PO phos, will change phos to IV By: Lawson Hair MD Time: 04/28 0555 Comment: Gap not closed, hospitalist will not accept admission unless gap has closed, will page ICU By: Lawson Hair MD Time: 04/28 530 Comment: Increased insulin to 3.1 units per hour (from the 0.5units/hr that Dr. Mancuso had been running) By: Lawson Hair MD Time: 04/28 5134 Comment: Case presented to & accepted for ICU admission by Dr. Arnold. By: Lawson Hair MD Time: 04/28 857 Value: Anion gap: See comment Comment: (Reviewed) By: Mukesh Champion MD Final diagnoses: Diabetic ketoacidosis without coma associated with type 1 diabetes mellitus (CMS/HCC) (HCC) UTI (urinary tract infection), bacterial Sinus tachycardia Hypophosphatemia Intractable vomiting with nausea Dre Mancuso MD 04/28/21131 Dre Mancuso MD 04/29/212015 ETENCY EVALUATED NURSE AIDE ETENCY EVALUATED NURSE AIDE * Joelle Mireles RN - 04/27/2021 8:56 PM CST Pt presents to the ed for c/o vomiting since yesterday. Pt is a diabetic and her Blood glucose was 226. ETENCY EVALUATED NURSE AIDE documented in this encounter Miscellaneous Notes * Plan of Care - Kathryn Nicole RN - 04/29/2021 1:43 PM CST Problem: Health Behavior: Goal: Understanding of discharge needs will improve Outcome: Adequate for Discharge Problem: Lack of Knowledge: Goal: Knowledge of the prescribed dietary regimen will improve Outcome: Adequate for Discharge Goal: Ability to plan menus appropriate to prescribed diet will improve Outcome: Adequate for Discharge Problem: Health Behavior: Goal: Identification of resources available to assist in meeting health care needs will improve Outcome: Adequate for Discharge Problem: Nutritional: Goal: Compliance with prescribed food intake will improve Outcome: Adequate for Discharge Problem: Lack of Knowledge: Goal: Ability to describe self-care measures that may prevent or decrease complications will improve Outcome: Adequate for Discharge Goal: Knowledge of disease or condition will improve Outcome: Adequate for Discharge Goal: Knowledge of the prescribed therapeutic regimen will improve Outcome: Adequate for Discharge Goal: Knowledge of prevention and discharge planning will improve Outcome: Adequate for Discharge Problem: Coping: Goal: Ability to adjust to condition or change in health will improve Outcome: Adequate for Discharge Problem: Fluid Volume: Goal: Ability to maintain a balanced intake and output will improve Outcome: Adequate for Discharge Problem: Health Behavior: Goal: Ability to identify and alter actions that are detrimental to health will improve Outcome: Adequate for Discharge Goal: Ability to identify and utilize available resources and services will improve Outcome: Adequate for Discharge Goal: Ability to manage health-related needs will improve Outcome: Adequate for Discharge Problem: Nutritional: Goal: Maintenance of adequate nutrition will improve Outcome: Adequate for Discharge Goal: Progress toward achieving an optimal weight will improve Outcome: Adequate for Discharge Problem: Physical Regulation: Goal: Complications related to the disease process, condition or treatment will be avoided or minimized Outcome: Adequate for Discharge Goal: Diagnostic test results will improve Outcome: Adequate for Discharge Problem: Skin Integrity: Goal: Risk for impaired skin integrity will decrease Outcome: Adequate for Discharge Goals: Clinical Goals for the Shift: VSS, nausea control, good intake and output, and stable labs Summary: VSS, no complaints of pain, BG is well maintained, has good intake and output, up independent, and has no other complaints ETENCY EVALUATED NURSE AIDE * Plan of Care - Christiane Christensen RN - 04/29/2021 10:45 AM CST CM Initial Assessment Interview Note Information Obtained From: Patient (04/29/21 8649) Admission Source: ED Impression: c/o vomiting Plan Includes: Assessment and discharge planning Primary Source of Transportation: Does the patient need discharge transport arranged?: No (04/28/21 9086) Health Insurance Coverage: [employer], Medicaid [place] Prescription Coverage: yes [facility] Primary Care Provider: Carrie Joseph PA Prior to Admission: Primary Caregiver: Self Support System: Spouse/Significant Other,Family members,Friends/neighbors Home Care Services: No Durable Medical Equipment: None Living Arrangements: Spouse/significant other,Children Type of Residence: Apartment Steps in home? : Yes, Outside of home Number of steps outside:: 10 steps (04/28/21 1136) Potential discharge needs include: Dialysis: Behavioral Health Services: Behavioral Health Services: No (04/29/21 1045) Patient expects to be Discharged to: Private residence, (04/29/21 1045) Additional Information: Discharge plan discussed with patient. Goal is to return home with boyfriend and 4 year old daughter. Her boyfriend will be her ride home. Patient is independent and does not use any ambulatory aides at home. Barrier to discharge is resolution of vomiting. No anticipated needs at this time. CM will continue to follow. Patient's Identified Problem/Goal Problem: Ensure acute medical needs are met and that patient has a safe discharge plan. Goal: Secure a discharge plan that patient/family are agreeable with and ensure patient has continuum of care. Case management will follow for discharge planning and send referrals as needed. Christiane Christensen, RN ETENCY EVALUATED NURSE AIDE * Assessment & Plan Note - Arcelia Anthony MD - 04/29/2021 8:50 AM COMPETENCY EVALUATED NURSE AIDE Associated Problem(s): Leukocytosis This may be reactive, no source of infection. -pending urine cultures, pending blood culture -sterile pyuria on urinalysis ETENCY EVALUATED NURSE AIDE * Assessment & Plan Note - Arcelia Anthony MD - 04/29/2021 8:39 AM COMPETENCY EVALUATED NURSE AIDE Associated Problem(s): Diabetic ketoacidosis without coma associated with type 1 diabetes mellitus (CMS/HCC) (HCC) (Resolved 11/20/2021) Patient with multiple admissions for DKA. Patient states that she has been compliant with her insulin and has not missed any doses. Unclear trigger: Viral panel negative On admission patient's glucose was 259, anion gap of 23. Lactate normal. Urinalysis with 4+ ketones, 2+ leukocyte esterase pending the urine culture -beta hydroxybutyrate 1.5 -educator senior clinical -consulted Endocrine appreciate assistance possibly needing insulin pump -continue with Lantus 20 units, and lispro 3 units t.i.d. -hemoglobin A1c 6.7 ETENCY EVALUATED NURSE AIDE * Subjective & Objective - Arcelia Anthony MD - 04/29/2021 8:35 AM COMPETENCY EVALUATED NURSE AIDE General Medicine Daily Progress SUBJECTIVE 25-year-old with a history of diabetes type 1, multiple episodes of DKA here with the complaints ofnot feeling well, nausea and vomiting Interval History: OBJECTIVE Vitals: 24hr Min/Max: Temp Min: 36.2 ??C (97.1 ??F) Max: 36.8 ??C (98.3 ??F) Pulse Min: 68 Max: 116 BP Min: 109/71 Max: 152/98 Resp Min: 11 Max: 22 SpO2 Min: 97 % Max: 100 % Most Recent : Vitals: 04/29/21 0739 BP: 109/71 Pulse: 96 Resp: 18 Temp: 36.5 ??C (97.7 ??F) SpO2: 97% I/O last 2 completed shifts: In: 1633.3 [I.V.:1633.3] Out: - No intake/output data recorded. Physical Exam: Eyes: EOMI, ZORAIDA, sclare non icteric Neck: supple, no nuchal ridigity, no gross carotid bruits appreciated Pharynx: No gross oral lesion, tongue midline, mucosa moist Lungs CTA Heart: [id number], no significant murmur or gallop Abd: +BS, Non Tender, Non distended, No gross hepatomegaly Lower Ext: No gross edema, pedal artery pulses are palpable bilaterally Neuro: No new deficits appreciated Musculoskeletal: no gross joint erythema, edema, tenderness Skin: No new change Lab/Current Medication Review: Recent Results (from the past 24 hour(s)) Basic metabolic panel Collection Time: 04/28/21 9:03 AM Result Value Ref Range Sodium 137 135 - 145 mmol/L Potassium, pl 4.0 3.3 - 4.9 mmol/L Chloride 107 97 - 110 mmol/L CO2 15 (L) 22 - 32 mmol/L Anion gap 15 2 - 15 mmol/L BUN 10 8 - 25 mg/dL Creatinine 0.29 (L) 0.60 - 1.10 mg/dL Glucose 151 70 - 199 mg/dL Calcium 8.0 (L) 8.5 - 10.3 mg/dL eGFR Collection Time: 04/28/21 9:03 AM Result Value Ref Range eGFR 153 mL/min/1.73 m2 POCT glucose Collection Time: 04/28/21 9:09 AM Result Value Ref Range Glucose, POC 132 (H) 71 - 98 mg/dL Drugs of Abuse Screen, Urine without Confirmation Collection Time: 04/28/21 10:43 AM Result Value Ref Range Amphetamine, ur Not [...] Not Detected CutOff 25 ng/mL Urine Creatinine 53 mg/dL POCT glucose Collection Time: 04/28/21 11:07 AM Result Value Ref Range Glucose, POC 149 (H) 71 - 98 mg/dL Basic metabolic panel Collection Time: 04/28/21 12:58 PM Result Value Ref Range Sodium 136 135 - 145 mmol/L Potassium, pl 3.7 3.3 - 4.9 mmol/L Chloride 103 97 - 110 mmol/L CO2 14 (L) 22 - 32 mmol/L Anion gap 19 (H) 2 - 15 mmol/L BUN 8 8 - 25 mg/dL Creatinine 0.34 (L) 0.60 - 1.10 mg/dL Glucose 142 70 - 199 mg/dL Calcium 7.9 (L) 8.5 - 10.3 mg/dL eGFR Collection Time: 04/28/21 12:58 PM Result Value Ref Range eGFR 147 mL/min/1.73 m2 POCT glucose Collection Time: 04/28/21 4:43 PM Result Value Ref Range Glucose, POC 90 71 - 98 mg/dL Basic metabolic panel Collection Time: 04/28/21 5:11 PM Result Value Ref Range Sodium 134 (L) 135 - 145 mmol/L Potassium, pl 3.4 3.3 - 4.9 mmol/L Chloride 98 97 - 110 mmol/L CO2 19 (L) 22 - 32 mmol/L Anion gap 17 (H) 2 - 15 mmol/L BUN 6 (L) 8 - 25 mg/dL Creatinine 0.29 (L) 0.60 - 1.10 mg/dL Glucose 128 70 - 199 mg/dL Calcium 8.1 (L) 8.5 - 10.3 mg/dL eGFR Collection Time: 04/28/21 5:11 PM Result Value Ref Range eGFR 153 mL/min/1.73 m2 Troponin T high-sensitivity Collection Time: 04/28/21 5:20 PM Result Value Ref Range Trop T hs <6 <=14 ng/L POCT glucose Collection Time: 04/28/21 8:07 PM Result Value Ref Range Glucose, POC 175 (H) 71 - 98 mg/dL Basic metabolic panel Collection Time: 04/28/21 10:47 PM Result Value Ref Range Sodium 133 (L) 135 - 145 mmol/L Potassium, pl 3.5 3.3 - 4.9 mmol/L Chloride 97 97 - 110 mmol/L CO2 20 (L) 22 - 32 mmol/L Anion gap 16 (H) 2 - 15 mmol/L BUN 4 (L) 8 - 25 mg/dL Creatinine 0.27 (L) 0.60 - 1.10 mg/dL Glucose 218 (H) 70 - 199 mg/dL Calcium 8.6 8.5 - 10.3 mg/dL eGFR Collection Time: 04/28/21 10:47 PM Result Value Ref Range eGFR 156 mL/min/1.73 m2 POCT glucose Collection Time: 04/29/21 12:01 AM Result Value Ref Range Glucose, POC 248 (H) 71 - 98 mg/dL POCT glucose Collection Time: 04/29/21 3:54 AM Result Value Ref Range Glucose, POC 229 (H) 71 - 98 mg/dL CBC without differential Collection Time: 04/29/21 3:58 AM Result Value Ref Range WBC 9.1 3.8 - 9.9 K/cumm Hgb 11.6 (L) 11.9 - 15.5 g/dL Hct 34.9 (L) 35.6 - 45.5 % Plt 336 150 - 400 K/cumm MPV 8.8 (L) 9.1 - 12.3 fL RBC 4.44 3.90 - 5.20 M/cumm MCV 78.6 (L) 81.3 - 96.4 fL MCH 26.1 (L) 27.1 - 33.3 pg MCHC 33.2 32.3 - 35.7 g/dL RDW CV 15.6 (H) 11.1 - 14.9 % RDW SD 44.0 35.7 - 48.1 fL NRBC abs 0.00 0.00 - 0.01 K/cumm POCT glucose Collection Time: 04/29/21 7:43 AM Result Value Ref Range Glucose, POC 197 (H) 71 - 98 mg/dL ECG 12 lead Result Date: 04/28/2021 Narrative: Vent Rate: 137 bpm RR Interval: 435 msec CO Interval: 100 msec QRS Duration: 70 msec QT Interval: 277 msec QTC Interval: 357 msec P-R-T [place]: 81 - 97 - 52 degrees SINUS TACHYCARDIA WITH SHORT CO INTERVAL BORDERLINE RIGHT AXIS DEVIATION [QRS AXIS > 90] MODERATE ST DEPRESSION [0.05+ mV ST DEPRESSION] ABNORMAL ECG Compared to prior EKG, ST segment changes are slightly more evident Electronically Signed By: Dariel Hsu MD Current Facility-Administered Medications Medication Dose Route Frequency Provider Last Rate Last Admin ??? dextrose gel in packet 15 g 15 g oral Q15 Min PRN Mukesh Champion MD Or ??? dextrose (D10W) 10% bolus 250 mL 250 mL intravenous Q15 Min PRN Mukesh Champion MD ??? dextrose 5% and Lactated Ringer's infusion 125 mL/hr intravenous Continuous Zander Stern MD 125 mL/hr at 04/29/21 0545 125 mL/hr at 04/29/21 0545 ??? enoxaparin (LOVENOX) syringe 40 mg 40 mg subcutaneous Daily-2100 Lawson Hair MD ??? glucagon injection 1 mg 1 mg intramuscular Q30 Min PRN Mukesh Champion MD ??? insulin glargine (LANTUS, BASAGLAR, SEMGLEE) 100 unit/mL (3 mL) pen injection 20 Units 20 Unitssubcutaneous Once Yolette Whyte NP ??? [START ON 04/30/2021] insulin glargine (LANTUS, BASAGLAR, SEMGLEE) 100 unit/mL (3 mL) pen injection 20 Units 20 Units subcutaneous Nightly Yolette Whyte NP ??? insulin lispro (HumaLOG, ADMELOG) 100 unit/mL pen injection 0-4 Units 0-4 Units subcutaneous Nightly Mukesh Champion MD ??? insulin lispro (HumaLOG, ADMELOG) 100 unit/mL pen injection 0-5 Units 0-5 Units subcutaneous Q4H Zander Stern MD 2 Units at 04/29/21 0401 ??? insulin lispro (HumaLOG, ADMELOG) 100 unit/mL pen injection 3 Units 0.05 Units/kg subcutaneous TID with meals Mukesh Champion MD A/P: MDM Principal Problem: Diabetic ketoacidosis without coma associated with type 1 diabetes mellitus (CMS/HCC) (HCC) Resolved Problems: No resolved hospital problems. Arcelia Anthony MD Family Medicine PGY-1 [facility] Res[facility] 04/29/2021 8:36 AM ETENCY EVALUATED NURSE AIDE * Plan of Care - Seng Jean RN - 04/29/2021 5:31 AM CST Goals: Clinical Goals for the Shift: VSS, stable blood sugar, adequate intake and output. Summary: Resting in bed with no complaints this shift. Blood sugar elevated, but stable. Decreased intake. IVF infusing without s/sx of infiltration. Problem: Health Behavior: Goal: Understanding of discharge needs will improve 04/29/2021 0531 by Seng Jean RN Outcome: Progressing 04/29/2021 05 by Seng Jean RN Outcome: Progressing Problem: Lack of Knowledge: Goal: Knowledge of the prescribed dietary regimen will improve 04/29/2021 05 by Seng Jean RN Outcome: Progressing 04/29/2021 05 by Seng Jean RN Outcome: Progressing Goal: Ability to plan menus appropriate to prescribed diet will improve 04/29/2021 0531 by Seng Jean RN Outcome: Progressing 04/29/2021 05 by Seng Jean RN Outcome: Progressing Problem: Health Behavior: Goal: Identification of resources available to assist in meeting health care needs will improve 04/29/2021 05 by Seng Jean RN Outcome: Progressing 04/29/2021 05 by Seng Jean RN Outcome: Progressing Problem: Nutritional: Goal: Compliance with prescribed food intake will improve 04/29/2021 05 by Seng Jean RN Outcome: Progressing 04/29/2021 05 by Seng Jean RN Outcome: Progressing Problem: Lack of Knowledge: Goal: Ability to describe self-care measures that may prevent or decrease complications will improve 04/29/2021 05 by Seng Jean RN Outcome: Progressing 04/29/2021 05 by Seng Jean RN Outcome: Progressing Goal: Knowledge of disease or condition will improve 04/29/2021 05 by Seng Jean RN Outcome: Progressing 04/29/2021527 by Seng Jean RN Outcome: Progressing Goal: Knowledge of the prescribed therapeutic regimen will improve 04/29/2021 05 by Seng Jean RN Outcome: Progressing 04/29/2021 05 by Seng Jean RN Outcome: Progressing Goal: Knowledge of prevention and discharge planning will improve 04/29/2021530 by Seng Jean RN Outcome: Progressing 04/29/2021527 by Seng Jean RN Outcome: Progressing Problem: Coping: Goal: Ability to adjust to condition or change in health will improve 04/29/2021 05 by Seng Jean RN Outcome: Progressing 04/29/2021 05 by Seng Jean RN Outcome: Progressing Problem: Fluid Volume: Goal: Ability to maintain a balanced intake and output will improve 04/29/2021 05 by Seng Jean RN Outcome: Progressing 04/29/2021 05 by Seng Jean RN Outcome: Progressing Problem: Health Behavior: Goal: Ability to identify and alter actions that are detrimental to health will improve 04/29/2021 05 by Sneg Jean RN Outcome: Progressing 04/29/2021 05 by Seng Jean RN Outcome: Progressing Goal: Ability to identify and utilize available resources and services will improve 04/29/2021530 by Seng Jean RN Outcome: Progressing 04/29/2021527 by Seng Jean RN Outcome: Progressing Goal: Ability to manage health-related needs will improve 04/29/2021 05 by Seng Jean RN Outcome: Progressing 04/29/2021527 by Seng Jean RN Outcome: Progressing Problem: Nutritional: Goal: Maintenance of adequate nutrition will improve 04/29/2021530 by Seng Jean RN Outcome: Progressing 04/29/2021527 by Seng Jean RN Outcome: Progressing Goal: Progress toward achieving an optimal weight will improve 04/29/2021530 by Seng Jean RN Outcome: Progressing 04/29/2021527 by Seng Jean RN Outcome: Progressing Problem: Physical Regulation: Goal: Complications related to the disease process, condition or treatment will be avoided or minimized 04/29/2021530 by Seng Jean RN Outcome: Progressing 04/29/2021527 by Seng Jean RN Outcome: Progressing Goal: Diagnostic test results will improve 04/29/2021530 by Seng Jean RN Outcome: Progressing 04/29/2021527 by Seng Jean RN Outcome: Progressing Problem: Skin Integrity: Goal: Risk for impaired skin integrity will decrease 04/29/2021530 by Seng Jean RN Outcome: Progressing 04/29/2021527 by Seng Jean RN Outcome: Progressing ETENCY EVALUATED NURSE AIDE * Plan of Care - Ida Augustine RN - 04/28/2021 11:31 AM CST Goals: normal blood sugar level, no nausea, VSS, free from falls/injury Summary: normal blood sugar level, free from nausea/vomiting, VSS ETENCY EVALUATED NURSE AIDE * ED Re-evaluation Note - Mukesh Champion MD - 04/28/2021 7:18 AM COMPETENCY EVALUATED NURSE AIDE ED Re-evaluation Note 04/28/2021 6:30 AM Patient care assumed from Dr. Hair. Case and findings, including treatment plan, evaluations, consults, and lab/imaging results were discussed. 04/28/2021 9:00 AM Discussed case with Dr. Stern, Hospitalist, who accepts the patient for admission. BP 148/87 (BP Location: Left arm, Patient Position: Lying) Pulse 102 Temp 36.6 ??C (97.9 ??F) (Temporal) Resp 18 Ht 154.9 cm (5' 0.98 ) Wt 76.5 kg (168 lb 11.2 oz) SpO2 100% BMI 31.89 kg/m?? Labs Reviewed URINALYSIS AND REFLEX TO MICROSCOPIC AND CULTURE - Abnormal Result Value Color, ur Yellow Clarity, ur Clear Specific gravity, ur 1.032 (*) pH, urine 5.5 Protein, ur ql Trace Glucose, ur ql 4+ (*) Ketones, ur 4+ (*) Bilirubin, ur Negative Blood, ur Negative Urobilinogen, ur <2.0 Nitrite, ur Negative Leukocyte esterase, ur 2+ (*) UA reflex comment Reflex to microscopic UA will be performed. Narrative: Urine pH is affected by diet, medications, systemic acid-base disturbances, and renal tubular function. pH may affect urinary stone formation. For example, urine pH below 6.0 may help reduce the tendency for calcium phosphate stones and pH greater than 6.0 may reduce the tendency for uric acid stone formation. Source: [place] [employer].Last revised 05-13-2017 CBC WITH AUTO DIFFERENTIAL - Abnormal WBC 20.8 (*) Hgb 13.1 Hct 42.6 Plt 415 (*) MPV 8.9 (*) RBC 5.12 MCV 83.2 MCH 25.6 (*) MCHC 30.8 (*) RDW CV 16.3 (*) RDW SD 49.8 (*) NRBC abs 0.00 COMPREHENSIVE METABOLIC PANEL - Abnormal Sodium 133 (*) Potassium, pl 4.5 Chloride 96 (*) CO2 14 (*) Anion gap 23 (*) BUN 19 Creatinine 0.39 (*) Glucose 259 (*) Calcium 10.0 Bilirubin, total 0.7 Protein, pl 7.8 Albumin 4.4 Alk phos 89 ALT 29 AST 23 BLOOD GAS, ARTERIAL - Abnormal pH, Art 7.35 PCO2, Arterial 30 (*) PO2, Arterial 95 HCO3 Art (Calculated) 16 (*) BE, art -8 O2 Sat Art (Measured) 98 (*) DIFFERENTIAL AUTO - Abnormal Neutrophil abs 18.4 (*) Imm gran abs 0.2 (*) Lymphocyte abs 1.2 Monocyte abs 1.0 (*) Eosinophil abs 0.0 Basophil abs 0.1 Neutrophil pct 88.5 Imm gran pct 0.8 Lymphocyte pct 5.7 Monocyte pct 4.8 Eosinophil pct 0.0 Basophil pct 0.2 BASIC METABOLIC PANEL - Abnormal Sodium 135 Potassium, pl 4.3 Chloride 102 CO2 17 (*) Anion gap 16 (*) BUN 17 Creatinine 0.38 (*) Glucose 150 Calcium 8.7 URINALYSIS, MICROSCOPIC ONLY - Abnormal WBC, ur 6-10 (*) RBC, ur 0-2 Epithelial cells, squamous, ur 1-5 Bacteria, ur Trace (*) Mucous, ur Present (*) Culture Reflex Comment Value: Reflex conditions for urine culture (WBC >10) not met. PHOSPHORUS - Abnormal Phosphorus, pl 1.7 (*) LIPASE - Abnormal Lipase 9 (*) BASIC METABOLIC PANEL - Abnormal Sodium 134 (*) Potassium, pl 4.0 Chloride 102 CO2 16 (*) Anion gap 16 (*) BUN 13 Creatinine 0.38 (*) Glucose 216 (*) Calcium 8.7 BLOOD GAS, VENOUS - Abnormal pH, Venous 7.34 PCO2, Venous 33 (*) PO2, Venous 107 HCO3 Venous, Calculated 17 (*) BE, venous -7 BETA-HYDROXYBUTYRATE - Abnormal Beta-Hydroxybutyrate 3.4 (*) BETA-HYDROXYBUTYRATE - Abnormal Beta-Hydroxybutyrate 1.5 (*) HEMOGLOBIN A1C - Abnormal Hgb A1C 6.7 (*) Estimated Average Glucose 146 BASIC METABOLIC PANEL - Abnormal Sodium 137 Potassium, pl 4.0 Chloride 107 CO2 15 (*) Anion gap 15 BUN 10 Creatinine 0.29 (*) Glucose 151 Calcium 8.0 (*) POCT GLUCOSE DEVICE - Abnormal Glucose, POC 226 (*) POCT GLUCOSE DEVICE - Abnormal Glucose, POC 219 (*) POCT GLUCOSE DEVICE - Abnormal Glucose, POC 133 (*) POCT GLUCOSE DEVICE - Abnormal Glucose, POC 157 (*) POCT GLUCOSE DEVICE - Abnormal Glucose, POC 158 (*) POCT GLUCOSE DEVICE - Abnormal Glucose, POC 158 (*) POCT GLUCOSE DEVICE - Abnormal Glucose, POC 132 (*) POCT GLUCOSE DEVICE - Abnormal Glucose, POC 149 (*) INFLUENZA A/B, RSV, AND COVID-19 PCR COVID-19 RNA Negative Influenza A RNA Negative Influenza B RNA Negative RSV RNA Negative First COVID-19 test? No Employeed in healthcare? No status? Unknown Group care resident? No Hospitalized? Yes Is patient in ICU? Unknown Symptomatic as defined by CDC? Yes Narrative: Date of Symptom Onset->04/28/21 Reason for testing?->Symptomatic (not immunocompromised) Known exposure to confirmed or suspected COVID-19 case?->No EGFR eGFR 143 EGFR eGFR 143 MAGNESIUM Magnesium 1.8 ETHANOL Ethanol <10 EGFR eGFR 143 BASIC METABOLIC PANEL Sodium See comment Potassium, pl See comment Chloride See comment CO2 See comment Anion gap See comment BUN See comment Creatinine See comment Glucose See comment Calcium See comment LACTATE Lactate 0.7 EGFR eGFR See comment EGFR eGFR 153 DRUGS OF ABUSE SCREEN, URINE WITHOUT CONFIRMATION BASIC METABOLIC PANEL TROPONIN T HIGH-SENSITIVITY BASIC METABOLIC PANEL POCT GLUCOSE DEVICE POCT GLUCOSE DEVICE POCT GLUCOSE DEVICE No orders to display ED Course as of 04/28/21 1524 Time: 04/279 Value: CO2(!): 14 Comment: (Reviewed) By: Dre Mancuso MD Time: 04/28 0114 Comment: UA pos for infection --> rocephin ordered HR 122 --> 3rd L NS ordered By: Lawson Hair MD Time: 04/28 115 Value: Glucose, POC(!): 133 Comment: Dr. Hazel stopped insulin gtt By: Lawson Hair MD Time: 04/28 126 Comment: Discussed with Dr. Graham she prefers IV insulin to continue with D5 half-normal repeat BMP in 4 hours she wants anion gap less than 13 By: Dre Mancuso MD Time: 04/28 305 Value: COVID-19 RNA: Negative Comment: (Reviewed) By: Lawson Hair MD Time: 04/28 305 Value: Influenza A RNA: Negative Comment: (Reviewed) By: Lawson Hair MD Time: 04/28 305 Value: Influenza B RNA: Negative Comment: (Reviewed) By: Lawson Hair MD Time: 04/28 305 Value: RSV RNA: Negative Comment: (Reviewed) By: Lawson Hair MD Time: 04/28 335 Comment: Pt refusing antiemetics, still vomiting, won't tolerate PO phos, will change phos to IV By: Lawson Hair MD Time: 04/28 0552 Comment: Gap not closed, hospitalist will not accept admission unless gap has closed, will page ICU By: Lawson Hair MD Time: 04/28 0501 Comment: Increased insulin to 3.1 units per hour (from the 0.5units/hr that Dr. Mancuso had been running) By: Lawson Hair MD Time: 04/28 1152 Comment: Case presented to & accepted for ICU admission by Dr. Arnold. By: Lawson Hair MD Time: 04/28 857 Value: Anion gap: See comment Comment: (Reviewed) By: Mukesh Champion MD We were able to close the anion gap. Patient was weaned off insulin drip. She was started on Lantus. She was admitted to the floor. Final diagnoses: Diabetic ketoacidosis without coma associated with type 1 diabetes mellitus (CMS/HCC) (HCC) UTI (urinary tract infection), bacterial Sinus tachycardia Hypophosphatemia Intractable vomiting with nausea This note is prepared by Anitha Christensen, acting as a scribe for Mukesh Champion MD. I electronically signed this note at 3:24 PM on 04/28/2021. I, Mukesh Champion MD, have personally performed the services described in the documentation, reviewed and edited the documentation which was dictated to the scribe in my presence, and it accurately records my words and actions. Anitha Christensen 04/28/21 09 Mukesh Champion MD 04/28/21 1525 ETENCY EVALUATED NURSE AIDE * ED Procedure Note - Lawson Hair MD - 04/28/2021 6:00 AM CSTAssociated Order(s): Critical Care Procedure Critical Care Performed by: Lawson Hair MD Authorized by: Lawson Hair MD Critical care provider statement: As reflected in the history, physical exam, orders, notes, and/or MDM, I was personally present while the patient was critically ill and provided critical care services for approximately 45 minutes, excluding time involved in separately billable procedures. Critical care was necessary to treat or prevent imminent or life-threatening deterioration of the following condition(s): diabetic ketoacidosis, dehydration and acute electrolyte derangement Critical care was time spent by me providing the following: continuous telemetry, continuous pulse oximetry, continuous capnography, serial laboratory checks, serial bedside patient exams, interpretation of bedside monitors, imaging, and arterial/venous lab draws and resuscitation with fluids glycemic control I provided emergent necessary critical care medicine [...] medical record. I admitted this patient to an Intensive Care unit (ICU) and discussed management with the admitting team. Lawson Hair MD 04/28/21 0601 ETENCY EVALUATED NURSE AIDE * ED Re-evaluation Note - Lawson Hair MD - 04/28/2021 5:59 AM COMPETENCY EVALUATED NURSE AIDE SIGN-OUT NOTE Sign-out received from Dr. Hazel Sign-out reasons: Routine change of shift Pertinent history and physical exam findings: Karina Fuchs is a 25 y.o. female presenting to the ED c/o DKA. She is a frequent ED utilizer. BP 126/86 Pulse 104 Temp 37.4 ??C (99.3 ??F) (Temporal) Resp 21 Ht 154.9 cm (5' 1 ) Wt 63.5 kg (140 lb) SpO2 100% BMI 26.45 kg/m?? Diagnostic Information: No orders to display Labs Reviewed URINALYSIS AND REFLEX TO MICROSCOPIC AND CULTURE - Abnormal Result Value Color, ur Yellow Clarity, ur Clear Specific gravity, ur 1.032 (*) pH, urine 5.5 Protein, ur ql Trace Glucose, ur ql 4+ (*) Ketones, ur 4+ (*) Bilirubin, ur Negative Blood, ur Negative Urobilinogen, ur <2.0 Nitrite, ur Negative Leukocyte esterase, ur 2+ (*) UA reflex comment Reflex to microscopic UA will be performed. Narrative: Urine pH is affected by diet, medications, systemic acid-base disturbances, and renal tubular function. pH may affect urinary stone formation. For example, urine pH below 6.0 may help reduce the tendency for calcium phosphate stones and pH greater than 6.0 may reduce the tendency for uric acid stone formation. Source: [place].Last revised 05-13-2017 CBC WITH AUTO DIFFERENTIAL - Abnormal WBC 20.8 (*) Hgb 13.1 Hct 42.6 Plt 415 (*) MPV 8.9 (*) RBC 5.12 MCV 83.2 MCH 25.6 (*) MCHC 30.8 (*) RDW CV 16.3 (*) RDW SD 49.8 (*) NRBC abs 0.00 COMPREHENSIVE METABOLIC PANEL - Abnormal Sodium 133 (*) Potassium, pl 4.5 Chloride 96 (*) CO2 14 (*) Anion gap 23 (*) BUN 19 Creatinine 0.39 (*) Glucose 259 (*) Calcium 10.0 Bilirubin, total 0.7 Protein, pl 7.8 Albumin 4.4 Alk phos 89 ALT 29 AST 23 BLOOD GAS, ARTERIAL - Abnormal pH, Art 7.35 PCO2, Arterial 30 (*) PO2, Arterial 95 HCO3 Art (Calculated) 16 (*) BE, art -8 O2 Sat Art (Measured) 98 (*) DIFFERENTIAL AUTO - Abnormal Neutrophil abs 18.4 (*) Imm gran abs 0.2 (*) Lymphocyte abs 1.2 Monocyte abs 1.0 (*) Eosinophil abs 0.0 Basophil abs 0.1 Neutrophil pct 88.5 Imm gran pct 0.8 Lymphocyte pct 5.7 Monocyte pct 4.8 Eosinophil pct 0.0 Basophil pct 0.2 BASIC METABOLIC PANEL - Abnormal Sodium 135 Potassium, pl 4.3 Chloride 102 CO2 17 (*) Anion gap 16 (*) BUN 17 Creatinine 0.38 (*) Glucose 150 Calcium 8.7 URINALYSIS, MICROSCOPIC ONLY - Abnormal WBC, ur 6-10 (*) RBC, ur 0-2 Epithelial cells, squamous, ur 1-5 Bacteria, ur Trace (*) Mucous, ur Present (*) Culture Reflex Comment Value: Reflex conditions for urine culture (WBC >10) not met. PHOSPHORUS - Abnormal Phosphorus, pl 1.7 (*) LIPASE - Abnormal Lipase 9 (*) BASIC METABOLIC PANEL - Abnormal Sodium 134 (*) Potassium, pl 4.0 Chloride 102 CO2 16 (*) Anion gap 16 (*) BUN 13 Creatinine 0.38 (*) Glucose 216 (*) Calcium 8.7 BLOOD GAS, VENOUS - Abnormal pH, Venous 7.34 PCO2, Venous 33 (*) PO2, Venous 107 HCO3 Venous, Calculated 17 (*) BE, venous -7 POCT GLUCOSE DEVICE - Abnormal Glucose, POC 226 (*) POCT GLUCOSE DEVICE - Abnormal Glucose, POC 219 (*) POCT GLUCOSE DEVICE - Abnormal Glucose, POC 133 (*) POCT GLUCOSE DEVICE - Abnormal Glucose, POC 157 (*) INFLUENZA A/B, RSV, AND COVID-19 PCR COVID-19 RNA Negative Influenza A RNA Negative Influenza B RNA Negative RSV RNA Negative First COVID-19 test? No Employeed in healthcare? No status? Unknown Group care resident? No Hospitalized? Yes Is patient in ICU? Unknown Symptomatic as defined by CDC? Yes Narrative: Date of Symptom Onset->04/28/21 Reason for testing?->Symptomatic (not immunocompromised) Known exposure to confirmed or suspected COVID-19 case?->No EGFR eGFR 143 EGFR eGFR 143 MAGNESIUM Magnesium 1.8 ETHANOL Ethanol <10 EGFR eGFR 143 BETA-HYDROXYBUTYRATE POCT GLUCOSE DEVICE To follow-up: Repeat labs & dispo Update: ED Course as of 04/28/21 0600 Time: 04/27 2249 Value: CO2(!): 14 Comment: (Reviewed) By: Dre Mancuso MD Time: 04/28 114 Comment: UA pos for infection --> rocephin ordered HR 122 --> 3rd L NS ordered By: Lawson Hair MD Time: 04/28 115 Value: Glucose, POC(!): 133 Comment: Dr. Hazel stopped insulin gtt By: Lawson Hair MD Time: 04/28 126 Comment: Discussed with Dr. Graham she prefers IV insulin to continue with D5 half-normal repeat BMP in 4 hours she wants anion gap less than 13 By: Dre Mancuso MD Time: 04/28 305 Value: COVID-19 RNA: Negative Comment: (Reviewed) By: Lawson Hair MD Time: 04/28 305 Value: Influenza A RNA: Negative Comment: (Reviewed) By: Lawson Hair MD Time: 04/28 305 Value: Influenza B RNA: Negative Comment: (Reviewed) By: Lawson Hair MD Time: 04/28 305 Value: RSV RNA: Negative Comment: (Reviewed) By: Lawson Hair MD Time: 04/28 335 Comment: Pt refusing antiemetics, still vomiting, won't tolerate PO phos, will change phos to IV By: Lawson Hair MD Time: 04/28 529 Comment: Gap not closed, hospitalist will not accept admission unless gap has closed, will page ICU By: Lawson Hair MD Time: 04/28 530 Comment: Increased insulin to 3.1 units per hour (from the 0.5units/hr that Dr. Mancuso had been running) By: Lawson Hair MD Time: 04/28 555 Comment: Case presented to & accepted for ICU admission by Dr. Arnold. By: Lawson Hair MD Clinical Impression: Diabetic ketoacidosis without coma associated with type 1 diabetes mellitus (CMS/HCC) (HCC) UTI (urinary tract infection), bacterial Sinus tachycardia Hypophosphatemia Intractable vomiting with nausea Disposition: Admit ICU Lawson Hair MD 04/28/21 06 ETENCY EVALUATED NURSE AIDE * ED Procedure Note - Dre Mancuso MD - 04/27/2021 11:22 PM CSTAssociated Order(s): ECG 12 lead Procedure ECG 12 lead Date/Time: 04/27/2021 11:22 PM Performed by: Dre Mancuso MD Authorized by: Dre Mancuso MD Rate: ECG rate: 137 ECG rate assessment: tachycardic Rhythm: Rhythm: sinus tachycardia Ectopy: Ectopy: none QRS: QRS axis: Normal QRS intervals: Normal Conduction: Conduction: normal ST segments: ST segments: Normal T waves: T waves: normal Interpretation: Interpretation: abnormal Dre Mancuso MD 04/27/21 1037 ETENCY EVALUATED NURSE AIDE documented in this encounter Plan of Treatment Not on file documented as of this encounter Procedures Procedure Name Priority Date/Time Associated Diagnosis Comments POCT GLUCOSE DEVICE Routine 04/29/2021 1 1:33 AM COMPETENCY EVALUATED NURSE AIDE EGFR Timed 04/29/2021 11:20 AM COMPETENCY EVALUATED NURSE AIDE BASIC METABOLIC PANEL Timed 04/29/2021 11:20 AM COMPETENCY EVALUATED NURSE AIDE POCT GLUCOSE DEVICE Routine 04/29/2021 7 :43 AM COMPETENCY EVALUATED NURSE AIDE EGFR Routine 04/29/2021 3:58 AM COMPETENCY EVALUATED NURSE AIDE CBC WITHOUT DIFFERENTIAL Routine 04/29/2021 3:58 AM COMPETENCY EVALUATED NURSE AIDE BASIC METABOLIC PANEL Routine 04/29/2021 3:58 AM COMPETENCY EVALUATED NURSE AIDE POCT GLUCOSE DEVICE Routine 04/29/2021 3 :54 AM COMPETENCY EVALUATED NURSE AIDE POCT GLUCOSE DEVICE Routine 04/29/2021 1 2:01 AM COMPETENCY EVALUATED NURSE AIDE EGFR Timed 04/28/2021 10:47 PM COMPETENCY EVALUATED NURSE AIDE BASIC METABOLIC PANEL Timed 04/28/2021 10:47 PM COMPETENCY EVALUATED NURSE AIDE POCT GLUCOSE DEVICE Routine 04/28/2021 8 :07 PM COMPETENCY EVALUATED NURSE AIDE TROPONIN T HIGH-SENSITIVITY Routine 04/28/2021 5:20 PM COMPETENCY EVALUATED NURSE AIDE EGFR STAT 04/28/2021 5:11 PM COMPETENCY EVALUATED NURSE AIDE BASIC METABOLIC PANEL STAT 04/28/2021 5:11 PM COMPETENCY EVALUATED NURSE AIDE POCT GLUCOSE DEVICE Routine 04/28/2021 4 :43 PM COMPETENCY EVALUATED NURSE AIDE EGFR STAT 04/28/2021 12:58 PM COMPETENCY EVALUATED NURSE AIDE BASIC METABOLIC PANEL STAT 04/28/2021 12:58 PM COMPETENCY EVALUATED NURSE AIDE POCT GLUCOSE DEVICE Routine 04/28/2021 1 1:07 AM COMPETENCY EVALUATED NURSE AIDE DRUGS OF ABUSE SCREEN, URINE WITHOUT CONFIRMATION Routine 04/28/2021 10:43 AM COMPETENCY EVALUATED NURSE AIDE POCT GLUCOSE DEVICE Routine 04/28/2021 9 :09 AM COMPETENCY EVALUATED NURSE AIDE EGFR STAT 04/28/2021 9:03 AM COMPETENCY EVALUATED NURSE AIDE BASIC METABOLIC PANEL STAT 04/28/2021 9:03 AM COMPETENCY EVALUATED NURSE AIDE EGFR Timed 04/28/2021 8:06 AM COMPETENCY EVALUATED NURSE AIDE BASIC METABOLIC PANEL Timed 04/28/2021 8:06 AM COMPETENCY EVALUATED NURSE AIDE LACTATE STAT 04/28/2021 8:05 AM COMPETENCY EVALUATED NURSE AIDE BETA-HYDROXYBUTYRATE Routine 04/28/2021 8:05 AM COMPETENCY EVALUATED NURSE AIDE HEMOGLOBIN A1C STAT 04/28/2021 8:05 AM COMPETENCY EVALUATED NURSE AIDE POCT GLUCOSE DEVICE Routine 04/28/2021 7 :56 AM COMPETENCY EVALUATED NURSE AIDE POCT GLUCOSE DEVICE Routine 04/28/2021 6 :39 AM COMPETENCY EVALUATED NURSE AIDE CO CRITICAL CARE ILL/INJURED PATIENT INIT 30-74 MIN Routine 04/28/2021 6:00 AM COMPETENCY EVALUATED NURSE AIDE EGFR Timed 04/28/2021 4:37 AM COMPETENCY EVALUATED NURSE AIDE BETA-HYDROXYBUTYRATE Timed 04/28/2021 4:37 AM COMPETENCY EVALUATED NURSE AIDE BLOOD GAS, VENOUS Timed 04/28/2021 4:3 7 AM COMPETENCY EVALUATED NURSE AIDE BASIC METABOLIC PANEL Timed 04/28/2021 4:37 AM COMPETENCY EVALUATED NURSE AIDE INFLUENZA A/B, RSV, AND COVID-19 PCR Routine 04/28/2021 1:58 AM COMPETENCY EVALUATED NURSE AIDE POCT GLUCOSE DEVICE Routine 04/28/2021 1 :23 AM COMPETENCY EVALUATED NURSE AIDE URINALYSIS AND REFLEX TO MICROSCOPIC AND CULTURE STAT 04/28/2021 1:03 AM COMPETENCY EVALUATED NURSE AIDE URINALYSIS, MICROSCOPIC ONLY STAT 04/28/2021 1:03 AM COMPETENCY EVALUATED NURSE AIDE EGFR STAT 04/28/2021 12:20 AM COMPETENCY EVALUATED NURSE AIDE BASIC METABOLIC PANEL STAT 04/28/2021 12:20 AM COMPETENCY EVALUATED NURSE AIDE POCT GLUCOSE DEVICE Routine 04/28/2021 1 2:17 AM COMPETENCY EVALUATED NURSE AIDE POCT GLUCOSE DEVICE Routine 04/27/2021 1 0:57 PM COMPETENCY EVALUATED NURSE AIDE BLOOD GAS, ARTERIAL STAT 04/27/2021 1 0:24 PM COMPETENCY EVALUATED NURSE AIDE DIFFERENTIAL AUTO STAT 04/27/2021 9:3 8 PM COMPETENCY EVALUATED NURSE AIDE CBC WITH AUTO DIFFERENTIAL STAT 04/27/2021 9:38 PM COMPETENCY EVALUATED NURSE AIDE PHOSPHORUS Add-On 04/27/2021 9:38 PM COMPETENCY EVALUATED NURSE AIDE MAGNESIUM Add-On 04/27/2021 9:38 PM COMPETENCY EVALUATED NURSE AIDE LIPASE Add-On 04/27/2021 9:38 PM COMPETENCY EVALUATED NURSE AIDE ETHANOL Add-On 04/27/2021 9:38 PM COMPETENCY EVALUATED NURSE AIDE EGFR STAT 04/27/2021 9:20 PM COMPETENCY EVALUATED NURSE AIDE COMPREHENSIVE METABOLIC PANEL STAT 04/27/2021 9:20 PM COMPETENCY EVALUATED NURSE AIDE ECG 12-LEAD STAT 04/27/2021 9:08 PM COMPETENCY EVALUATED NURSE AIDE POCT GLUCOSE DEVICE Routine 04/27/2021 8 :56 PM COMPETENCY EVALUATED NURSE AIDE documented in this encounter Results * (ABNORMAL) POCT glucose (04/29/2021 11:33 AM COMPETENCY EVALUATED NURSE AIDE) Glucose, POC 199(H) 71 - 98 mg/dL TOMY SAHU (VASHTI) Blood 04/29/2021 11:3 3 AM COMPETENCY EVALUATED NURSE AIDE 04/29/2021 11:33 AM COMPETENCY EVALUATED NURSE AIDE us Cally Crespo MD LAB POCT ORDERABLES - DEV ICE Final Result TOMY SAHU (DEMA) 1 [facility] Department [place] [address] * eGFR (04/29/2021 11:20 AM COMPETENCY EVALUATED NURSE AIDE) eGFR 143 mL/min/1. 73 m2 TOMY SAHU (DEMA) Comment: Interpretive Data Reference Interval Normal ?>/= [...] interpretive data was last reviewed 2021. Blood 04/29/2021 11:2 0 AM COMPETENCY EVALUATED NURSE AIDE 04/29/2021 11:26 AM COMPETENCY EVALUATED NURSE AIDE us Zander Stern MD LAB BLOOD ORDERABLES Final Result [facility] (VASHTI) 1 [facility] Department [place] [address] * (ABNORMAL) Basic metabolic panel (04/29/2021 11:20 AM COMPETENCY EVALUATED NURSE AIDE) Sodium 132(L) 135 - 145 mmol/L [facility] ([place]) Potassium, pl 3.6 3.3 - 4.9 mmol/L [facility] ([place]) Chloride 93(L) 97 - 110 mmol/L [facility] ([place]) CO2 22 22 - 32 mmol/L [facility] ([place]) Anion gap 18(H) 2 - 15 mmol/L [facility] ([place]) BUN 5(L) 8 - 25 mg/dL [facility] ([place]) Creatinine 0.39(L) 0.60 - 1.10 mg/dL [facility] ([place]) Glucose 237(H) 70 - 199 mg/dL [facility] ([place]) [...] interpretive data was last revised 2017. Calcium 8.7 8.5 - 10.3 mg/dL [facility] ([place]) Blood 04/29/2021 11:2 0 AM COMPETENCY EVALUATED NURSE AIDE 04/29/2021 11:26 AM COMPETENCY EVALUATED NURSE AIDE us Zander Stern MD LAB BLOOD ORDERABLES Final Result Performing Organization Address City/[facility]/ZIP Co de Phone Number TOMY MAYAN) 1 [facility] [place] [employer] [place] [address] * (ABNORMAL) POCT glucose (04/29/2021 7:43 AM COMPETENCY EVALUATED NURSE AIDE) Glucose, POC 197(H) 71 - 98 mg/dL TOMY SAHU (DEMA) Blood 04/29/2021 7:43 AM COMPETENCY EVALUATED NURSE AIDE 04/29/2021 7:43 AM COMPETENCY EVALUATED NURSE AIDE us Cally Crespo MD LAB POCT ORDERABLES - DEV ICE Final Result Performing Organization Address [facility] Co de Phone Number TOMY SAHU (VASHTI) 1 [facility] [place] [place] [address] * eGFR (04/29/2021 3:58 AM COMPETENCY EVALUATED NURSE AIDE) eGFR 152 mL/min/1. 73 m2 TOMY SAHU (VASHTI) Comment: [...] Current interpretive data was last reviewed 2021. Testing performed by: [address] [address] Blood 04/29/2021 3:58 AM COMPETENCY EVALUATED NURSE AIDE 04/29/2021 8:58 AM COMPETENCY EVALUATED NURSE AIDE us Zander Stern MD LAB BLOOD ORDERABLES Final Result TOMY SAHU (VASHTI) 1 [facility] Department [place] [address] * (ABNORMAL) Basic metabolic panel (04/29/2021 3:58 AM COMPETENCY EVALUATED NURSE AIDE) Sodium 132(L) 135 - 145 mmol/L [facility] (VASHTI) Comment:Testing performed by : [address], [address] Potassium, pl 3.4 3.3 - 4.9 mmol/L [facility] (VASHTI) Comment:Testing performed by : [address] [address] Chloride 92(L) 97 - 110 mmol/L [facility] ([place]HTI) Comment:Testing performed by : [address] [address] CO2 23 22 - 32 mmol/L [facility] (VASHTI) Comment:Testing performed by : [address], [address] Anion gap 17(H) 2 - 15 mmol/L [facility] ([place]HTI) Comment:Testing performed by : [address], [address] BUN 4(L) 8 - 25 mg/dL [facility] ([place]ASHTI) Comment:Testing performed by : [address], [address] Creatinine 0.30(L) 0.60 - 1.10 mg/dL [facility] (VASHTI) Comment:Testing performed by : [facility], [address] [place] [address]., [address] Glucose 239(H) 70 - 199 mg/dL [facility] (VASHTI) [...] Current interpretive data was last revised 2017. Testing performed by: [facility], [address] [place] [address]., [address] Calcium 8.6 8.5 - 10.3 mg/dL TOMY SAHU (VASHTI) Comment:Testing performed by : [facility], [address] [place] [address]., [id number] Blood 04/29/2021 3:58 AM COMPETENCY EVALUATED NURSE AIDE 04/29/2021 4:02 AM COMPETENCY EVALUATED NURSE AIDE us Zander Stern MD LAB BLOOD ORDERABLES Final Result TOMY SAHU (VASHTI) 1 [facility] Department [place] [address] * (ABNORMAL) CBC without differential (04/29/2021 3:58 AM COMPETENCY EVALUATED NURSE AIDE) WBC 9.1 3.8 - 9.9 K/cumm [facility] ([place]) Hgb 11.6(L) 11.9 - 15.5 g/dL [facility] ([place]) Hct 34.9(L) 35.6 - 45.5 % [facility] ([place]) Plt 336 150 - 400 K/cumm [facility] ([place]) MPV 8.8(L) 9.1 - 12.3 fL [facility] ([place]) RBC 4.44 3.90 - 5.20 M/cumm [facility] ([place]) MCV 78.6(L) 81.3 - 96.4 fL [facility] ([place]) MCH 26.1(L) 27.1 - 33.3 pg [facility] ([place]) MCHC 33.2 32.3 - 35.7 g/dL [facility] ([place]) RDW CV 15.6(H) 11.1 - 14.9 % [facility] ([place]) RDW SD 44.0 35.7 - 48.1 fL [facility] ([place]) NRBC abs 0.00 0.00 - 0.01 K/cumm [facility] ([place]HT[place]) Blood 04/29/2021 3:58 AM COMPETENCY EVALUATED NURSE AIDE 04/29/2021 4:02 AM COMPETENCY EVALUATED NURSE AIDE Zander Stern MD LAB BLOOD ORDERABLES Final Result Performing Organization Address [facility] Co de Phone Number TOMY SAHU (VASHTI) 1 [facility] [employer] [place] [address] * (ABNORMAL) POCT glucose (04/29/2021 3:54 AM COMPETENCY EVALUATED NURSE AIDE) Glucose, POC 229(H) 71 - 98 mg/dL [facility] (VASHTI) Blood 04/29/2021 3:54 AM COMPETENCY EVALUATED NURSE AIDE 04/29/2021 3:54 AM COMPETENCY EVALUATED NURSE AIDE Zander Stern MD LAB POCT ORDERABLES - DEVIC E Final Result TOMY SAHU (VASHTI) 1 [facility] [employer] [place] [address] * (ABNORMAL) POCT glucose (04/29/2021 12:01 AM COMPETENCY EVALUATED NURSE AIDE) Glucose, POC 248(H) 71 - 98 mg/dL TOMY SAHU (VASHTI) Blood 04/29/2021 12:0 1 AM COMPETENCY EVALUATED NURSE AIDE 04/29/2021 12:01 AM COMPETENCY EVALUATED NURSE AIDE us Zander Stern MD LAB POCT ORDERABLES - DEVIC E Final Result Performing Organization Address City/[facility] Co de Phone Number TOMY SAHU (VASHTI) 1 [facility] Department [place] [employer] [place] [address] * eGFR (04/28/2021 10:47 PM COMPETENCY EVALUATED NURSE AIDE) eGFR 156 mL/min/1. 73 m2 TOMY SAHU (VASHTI) Comment: [...] Current interpretive data was last reviewed 2021. Testing performed by: [facility], [address] [place] [address], [place]., [address] Blood 04/28/2021 10:4 7 PM COMPETENCY EVALUATED NURSE AIDE 04/29/2021 1:15 AM COMPETENCY EVALUATED NURSE AIDE us Zander Stern MD LAB BLOOD ORDERABLES Final Result [facility] (VASHTI) 1 [facility] Department [place] [address] * (ABNORMAL) Basic metabolic panel (04/28/2021 10:47 PM COMPETENCY EVALUATED NURSE AIDE) Sodium 133(L) 135 - 145 mmol/L [facility] (VASHTI) Comment:Testing performed by : [facility], [address] [place] [address]., [address] Potassium, pl 3.5 3.3 - 4.9 mmol/L [facility] (VASHTI) Comment:Testing performed by : [facility], [address] [place] [address]., [address] Chloride 97 97 - 110 mmol/L [facility] (VASHTI) Comment:Testing performed by : [facility], [address] [place] [address]., [address] CO2 20(L) 22 - 32 mmol/L [facility] (VASHTI) Comment:Testing performed by : [address] [address] Anion gap 16(H) 2 - 15 mmol/L [facility] (VASHTI) Comment:Testing performed by : [facility], [address] [place] [address]., [address] BUN 4(L) 8 - 25 mg/dL [facility] (VASHTI) Comment:Testing performed by : [address] [address] Creatinine 0.27(L) 0.60 - 1.10 mg/dL [facility] (VASHTI) Comment:Testing performed by : [address] [address] Glucose 218(H) 70 - 199 mg/dL [facility] [...] Current interpretive data was last revised 2017. Testing performed by: [facility], [address] [place] [address]., [address] Calcium 8.6 8.5 - 10.3 mg/dL TOMY SAHU (DEMA) Comment:Testing performed by : [facility], [address] [place] [address]., [address] Blood 04/28/2021 10:4 7 PM COMPETENCY EVALUATED NURSE AIDE 04/28/2021 10:49 PM COMPETENCY EVALUATED NURSE AIDE Zander Stern MD LAB BLOOD ORDERABLES Final Result Performing Organization Address [facility] Co de Phone Number TOMY SAHU (DEMA) 1 [facility] [place] [employer] [place] [address] * (ABNORMAL) POCT glucose (04/28/2021 8:07 PM COMPETENCY EVALUATED NURSE AIDE) Glucose, POC 175(H) 71 - 98 mg/dL TOMY SAHU (DEMA) Blood 04/28/2021 8:07 PM COMPETENCY EVALUATED NURSE AIDE 04/28/2021 8:07 PM COMPETENCY EVALUATED NURSE AIDE Result [facility] Zander Stern MD LAB POCT ORDERABLES - DEVIC E Final Result Performing Organization Address [facility] de Phone Number TOMY SAHU (DEMA) [address] [place] [address] * Troponin T high-sensitivity (04/28/2021 5:20 PM COMPETENCY EVALUATED NURSE AIDE) Trop T hs <6 <=14 ng/L TOMY SAHU (DEMA) Comment: Interpretive Data For further hscTnT resources including the diagnostic algorithm and an aid in interpretation, copy and paste this link: https://nrl.testcatalog.org/show/hsTrop Current Interpretive Data last revised 2020. Blood 04/28/2021 5:20 PM COMPETENCY EVALUATED NURSE AIDE 04/28/2021 5:25 PM COMPETENCY EVALUATED NURSE AIDE Zander Stern MD LAB BLOOD ORDERABLES Final Result TOMY SAHU (VASHTI) 1 [facility] [place] [address] * eGFR (04/28/2021 5:11 PM COMPETENCY EVALUATED NURSE AIDE) eGFR 153 mL/min/1. 73 m2 TOMY LUIS ALBERTO (DEMA) Comment: Interpretive Data Reference Interval Normal ?>/= [...] interpretive data was last reviewed 2021. Blood 04/28/2021 5:11 PM COMPETENCY EVALUATED NURSE AIDE 04/28/2021 5:25 PM COMPETENCY EVALUATED NURSE AIDE us Zander Stern MD LAB BLOOD ORDERABLES Final Result TOMY SAHU (VASHTI) 1 [facility] [place] [address] * (ABNORMAL) Basic metabolic panel (04/28/2021 5:11 PM COMPETENCY EVALUATED NURSE AIDE) Sodium 134(L) 135 - 145 mmol/L [facility] ([place]I) Potassium, pl 3.4 3.3 - 4.9 mmol/L [facility] ([place]) Chloride 98 97 - 110 mmol/L [facility] ([place]HTI) CO2 19(L) 22 - 32 mmol/L [facility] ([place]HTI) Anion gap 17(H) 2 - 15 mmol/L [facility] ([place]HTI) BUN 6(L) 8 - 25 mg/dL [facility] ([place]HTI) Creatinine 0.29(L) 0.60 - 1.10 mg/dL [facility] ([place]HTI) Glucose 128 70 - 199 mg/dL [facility] Comment: Interpretive Data Fasting glucose [...] interpretive data was last revised 2017. Calcium 8.1(L) 8.5 - 10.3 mg/dL [facility] (VASHTI) Blood 04/28/2021 5:11 PM COMPETENCY EVALUATED NURSE AIDE 04/28/2021 5:25 PM COMPETENCY EVALUATED NURSE AIDE us Zander Stern MD LAB BLOOD ORDERABLES Final Result T[facility] (VASHTI) 1 [facility] [place] [address] * POCT glucose (04/28/2021 4:43 PM COMPETENCY EVALUATED NURSE AIDE) [facility] Signature Glucose, POC 90 71 - 98 mg/dL [facility] (VASHTI) Blood 04/28/2021 4:43 PM COMPETENCY EVALUATED NURSE AIDE 04/28/2021 4:43 PM COMPETENCY EVALUATED NURSE AIDE us Zander Stern MD LAB POCT ORDERABLES - DEVIC E Final Result Performing Organization Address City/[facility]/ZIP Co de Phone Number TOMY SAHU (DEMA) 1 [facility] [place] [address] * eGFR (04/28/2021 12:58 PM COMPETENCY EVALUATED NURSE AIDE) eGFR 147 mL/min/1. 73 m2 TOMY SAHU (DEMA) Comment: Interpretive Data Reference Interval Normal ?>/= [...] interpretive data was last reviewed 2021. Blood 04/28/2021 12:5 8 PM COMPETENCY EVALUATED NURSE AIDE 04/28/2021 1:02 PM COMPETENCY EVALUATED NURSE AIDE us Zander Stern MD LAB BLOOD ORDERABLES Final Result TOMY SAHU (DEMA) 1 [facility] [place] [address] * (ABNORMAL) Basic metabolic panel (04/28/2021 12:58 PM COMPETENCY EVALUATED NURSE AIDE) Sodium 136 135 - 145 mmol/L [facility] (VASHTI) Potassium, pl 3.7 3.3 - 4.9 mmol/L [facility] (VASHTI) Chloride 103 97 - 110 mmol/L [facility] (VASHTI) CO2 14(L) 22 - 32 mmol/L [facility] (VASHTI) Anion gap 19(H) 2 - 15 mmol/L [facility] ([place]HTI) BUN 8 8 - 25 mg/dL [facility] (VASHTI) Creatinine 0.34(L) 0.60 - 1.10 mg/dL [facility] (VASHTI) Glucose 142 70 - 199 mg/dL [facility] (VASHTI) Comment: Interpretive Data Fasting glucose >/= [...] 2017. Calcium 7.9(L) 8.5 - 10.3 mg/dL [facility] (VASHTI) Blood 04/28/2021 12:5 8 PM COMPETENCY EVALUATED NURSE AIDE 04/28/2021 1:02 PM COMPETENCY EVALUATED NURSE AIDE us Zander Stern MD LAB BLOOD ORDERABLES Final Result [facility] (VASHTI) 1 [facility] [place] [address] * (ABNORMAL) POCT glucose (04/28/2021 11:07 AM COMPETENCY EVALUATED NURSE AIDE) Glucose, POC 149(H) 71 - 98 mg/dL [facility] (VASHTI) Blood 04/28/2021 11:0 7 AM COMPETENCY EVALUATED NURSE AIDE 04/28/2021 11:07 AM COMPETENCY EVALUATED NURSE AIDE us Zander Stern MD LAB POCT ORDERABLES - DEVIC E Final Result TOMY LUIS ALBERTO (VASHTI) 1 [facility] Department [place] [employer] [place] [address] * Drugs of Abuse Screen, Urine without Confirmation (04/28/2021 10:43 AM COMPETENCY EVALUATED NURSE AIDE) Amphetamine, ur Not Detected CutOff 500ng/mL [facility] [...] Methadone, ur Not Detected CutOff 300ng/mL [facility] ([place]ASHTI) Comment: Interpretive Data - Methadone: ??Samples containing greater than 300 ng/mL d,l-methadone or other cross-reacting compounds are reported as positive. ??False positive and false negative results are possible. Current Interpretive Data was last reviewed 2018. Opiates, ur Not Detected CutOff 300ng/mL [facility] (VASHTI) Comment: Interpretive Data - Opiates: ??Samples containing greater than 300 ng/mL morphine or other cross-reacting compounds are reported as positive. ??False positive and false negative results are possible. Current Interpretive Data was last reviewed 2018. Oxycodone, ur Not Detected CutOff 100ng/mL [facility] (VASHTI) Comment: Interpretive Data - Oxycodone: ??Samples containing greater than 100 ng/mL oxycodone or other cross-reacting compounds are reported as positive. ??False positive and false negative results are possible. ?? Current Interpretive Data was last reviewed 2018. Phencyclidine, ur Not Detected CutOff 25 ng/mL [facility] ([facility]) Comment: Interpretive Data - Phencyclidine: ??Samples containing greater than 25 ng/mL phencyclidine or other cross-reacting compounds are reported as positive. ??False positive and false negative results are possible. ?? Current Interpretive Data was last reviewed 2018. Urine Creatinine 53 mg/dL ASHLEY SAHU ([place]) Comment: Interpretive Data Urine Creatinine: < 10 mg/dL is extremely dilute = or > 10 but < 20 mg/dL is dilute = or > 20 mg/dL is normal Current Interpretive Data was last revised on 2017. Urine 04/28/2021 10:4 3 AM COMPETENCY EVALUATED NURSE AIDE 04/28/2021 10:48 AM COMPETENCY EVALUATED NURSE AIDE Narrative TOMY SAHU ([place]) - 04/28/2021 8:59 PM COMPETENCY EVALUATED NURSE AIDE Drug of Abuse screening is performed by immunoassay for medical purposes only. ??This is not to be used for Pain Management purposes. us Zander Stern MD LAB URINE ORDERABLES Final Result TOMY SAHU ([facility]) [address] [facility] [place] [address] * (ABNORMAL) POCT glucose (04/28/2021 9:09 AM COMPETENCY EVALUATED NURSE AIDE) Glucose, POC 132(H) 71 - 98 mg/dL [facility] ([facility]) Blood 04/28/2021 9:09 AM COMPETENCY EVALUATED NURSE AIDE 04/28/2021 9:09 AM COMPETENCY EVALUATED NURSE AIDE us Dre Mancuso MD LAB POCT ORDERABLES - DEVICE F inal Result Performing Organization Address [facility] Co de Phone Number [facility] ([place]) 1 [facility] [place] [address] * eGFR (04/28/2021 9:03 AM COMPETENCY EVALUATED NURSE AIDE) eGFR 153 mL/min/1. 73 m2 [facility] ([place]) Comment: Interpretive Data Reference Interval Normal ?>/= [...] Current interpretive data was last reviewed 2021. Testing performed by: [address] [address] Blood 04/28/2021 9:03 AM COMPETENCY EVALUATED NURSE AIDE 04/28/2021 10:54 AM COMPETENCY EVALUATED NURSE AIDE us Mukesh Champion MD LAB BLOOD ORDERABLES Final R esult TOMY SAHU (DEMA) 1 [facility] [place] [address] * (ABNORMAL) Basic metabolic panel (04/28/2021 9:03 AM COMPETENCY EVALUATED NURSE AIDE) Sodium 137 135 - 145 mmol/L [facility] ([place]) Comment:Testing performed by : [address], [address] Potassium, pl 4.0 3.3 - 4.9 mmol/L [facility] ([place]) Comment:Testing performed by : [address] [address] Chloride 107 97 - 110 mmol/L [facility] ([place]) Comment:Testing performed by : [address], [address] CO2 15(L) 22 - 32 mmol/L [facility] ([place]) Comment:Testing performed by : [address], [address] Anion gap 15 2 - 15 mmol/L [facility] ([place]) Comment:Testing performed by : [address], [address] BUN 10 8 - 25 mg/dL [facility] ([place]) Comment:Testing performed by : [address], [address] Creatinine 0.29(L) 0.60 - 1.10 mg/dL [facility] ([place]) Comment:Testing performed by : [address] [address] Glucose 151 70 - 199 mg/dL TOMY SAHU (V[place]HTI) Comment: Interpretive Data Fasting glucose >/= [...] Current interpretive data was last revised 2017. Testing performed by: [facility], [address] [place] [address]., [id number] Calcium 8.0(L) 8.5 - 10.3 mg/dL TOMY SAHU ([place]HT[place]) Comment:Testing performed by : [address] [address] Blood 04/28/2021 9:03 AM COMPETENCY EVALUATED NURSE AIDE 04/28/2021 9:05 AM COMPETENCY EVALUATED NURSE AIDE us Mukesh Champion MD LAB BLOOD ORDERABLES Final R esult TOMY SAHU (DE[place]) 1 [facility] [place] [address] * eGFR (04/28/2021 8:06 AM COMPETENCY EVALUATED NURSE AIDE) eGFR See comment mL/min/1. 73 m2 TOMY SAHU ([place]I) Comment: Please disregard results. Per Kanchan in ER, lab was drawn above IV. Interpretive Data Reference Interval Normal ?>/= 90 [...] interpretive data was last reviewed 2021. Blood 04/28/2021 8:06 AM COMPETENCY EVALUATED NURSE AIDE 04/28/2021 8:08 AM COMPETENCY EVALUATED NURSE AIDE Gio Sewell MD LAB BLOOD ORDERABLES Edited R esult - Final TOMY SAHU ([place]MA) 1 [facility] [place] [address] * Basic metabolic panel (04/28/2021 8:06 AM COMPETENCY EVALUATED NURSE AIDE) Sodium See comment 135 - 145 mmol/L TOMY SAHU (DEMA) Comment:Please disregard res ults. Per Kanchan in ER, lab was drawn above IV. Potassium, pl See comment 3.3 - 4.9 mmol/L TOMY SAHU (DEMA) Comment:Please disregard res ults. Per Kanchan in ER, lab was drawn above IV. Chloride See comment 97 - 110 mmol/L TOMY SAHU ([place]) Comment:Please disregard res ults. Per Kanchan in ER, lab was drawn above IV. CO2 See comment 22 - 32 mmol/L TOMY SAHU ([place]) Comment:Please disregard res ults. Per Kanchan in ER, lab was drawn above IV. Anion gap See comment 2 - 15 mmol/L TOMY SAHU (DEMA) Comment:Please disregard res ults. Per Kanchan in ER, lab was drawn above IV. BUN See comment 8 - 25 mg/dL TOMY SAHU ([place]) Comment:Please disregard res ults. Per Kanchan in ER, lab was drawn above IV. Creatinine See comment 0.60 - 1.10 mg/dL TOMY SAHU ([place]) Comment:Please disregard res ults. Per Kanchan in ER, lab was drawn above IV. Glucose See comment 70 - 199 mg/dL OTMY SAHU (V[place]HTI) Comment: Critical Result called to and read back by Kanchan Lin-ER Charge, DATE: 2021-04-28 08:34:45 BY: Irasema Gould Please disregard results. Per Kanchan in ER, lab was drawn above IV. Interpretive Data Fasting glucose >/= 126 mg/dl [...] interpretive data was last revised 2017. Calcium See comment 8.5 - 10.3 mg/dL TOMY SAHU ([place]) Comment:Please disregard res ults. Per Kanchan in ER, lab was drawn above IV. Blood 04/28/2021 8:06 AM COMPETENCY EVALUATED NURSE AIDE 04/28/2021 8:08 AM COMPETENCY EVALUATED NURSE AIDE us Gio Sewell MD LAB BLOOD ORDERABLES Edited R esult - Final TOMY SAHU (DEMA) 1 [facility] Department of Laboratories [place], [place] [id number] * (ABNORMAL) Hemoglobin A1c (04/28/2021 8:05 AM COMPETENCY EVALUATED NURSE AIDE) Hgb A1C 6.7(H) 4.0 - 5.6 % TOMY SAHU ([place]) Estimated Average Glucose 146 mg/dL TOMY SAHU ([place]HT[place]) Comment: The ADA recommends reporting an estimated Average Glucose (eAG) with all Hemoglobin A1c results using the equation derived from a study of 507 normal and diabetic adults. ??Minority populations were underrepresented and children were not included. ?? (Diabetes Care 31:9469-4441, 2008). ??The eAG is not equivalent to a fasting glucose. Blood 04/28/2021 8:05 AM COMPETENCY EVALUATED NURSE AIDE 04/28/2021 8:08 AM COMPETENCY EVALUATED NURSE AIDE us Zander Stern MD LAB BLOOD ORDERABLES Final Result Performing Organization Address [facility] Co de Phone Number TOMY SAHU (VASHTI) 1 [facility] [place] [address] * (ABNORMAL) Beta-hydroxybutyrate (04/28/2021 8:05 AM COMPETENCY EVALUATED NURSE AIDE) Beta-Hydroxybu tyrate 1.5(H) <=0.5 mmol/L TOMY SAHU ([place]HTI) Comment:Testing performed by : [facility], [address] [place] [address], [id number] Blood 04/28/2021 8:05 AM COMPETENCY EVALUATED NURSE AIDE 04/28/2021 2:01 PM COMPETENCY EVALUATED NURSE AIDE us Zander Stern MD LAB BLOOD ORDERABLES Final Result Performing Organization Address [facility] Co de Phone Number TOMY SAHU (V[place]HTI) 1 [facility] [place] [address] * Lactate (04/28/2021 8:05 AM COMPETENCY EVALUATED NURSE AIDE) Lactate 0.7 0.7 - 2.0 mmol/L TOMY SAHU ([place]) Blood 04/28/2021 8:05 AM COMPETENCY EVALUATED NURSE AIDE 04/28/2021 8:08 AM COMPETENCY EVALUATED NURSE AIDE us Zander Stern MD LAB BLOOD ORDERABLES Final Result Performing Organization Address City/[facility]/ZIP Co de Phone Number TOMY SAHU ([place]I) 1 [facility] [place] [address] * (ABNORMAL) POCT glucose (04/28/2021 7:56 AM COMPETENCY EVALUATED NURSE AIDE) Glucose, POC 158(H) 71 - 98 mg/dL [facility] ([place]) Blood 04/28/2021 7:56 AM COMPETENCY EVALUATED NURSE AIDE 04/28/2021 7:56 AM COMPETENCY EVALUATED NURSE AIDE Dre Mancuso MD LAB POCT ORDERABLES - DEVICE F inal Result Performing Organization Address [facility] de Phone Number TOMY SAHU (DEMA) 1 [facility] [place] [address] * (ABNORMAL) POCT glucose (04/28/2021 6:39 AM COMPETENCY EVALUATED NURSE AIDE) Glucose, POC 158(H) 71 - 98 mg/dL [facility] ([place]) Blood 04/28/2021 6:39 AM COMPETENCY EVALUATED NURSE AIDE 04/28/2021 6:39 AM COMPETENCY EVALUATED NURSE AIDE Dre Mancuso MD LAB POCT ORDERABLES - DEVICE F inal Result Performing Organization Address [facility] de Phone Number TOMY SAHU (DE[place]) 1 [facility] [place] [address] * CO CRITICAL CARE ILL/INJURED PATIENT INIT 30-74 MIN (04/28/2021 6:00 AM COMPETENCY EVALUATED NURSE AIDE) Narrative Lawson Hair MD - 04/28/2021 6:00 AM COMPETENCY EVALUATED NURSE AIDE Lawson Hair MD ? 04/28/2021 ??6:01 AM Critical Care Performed by: Lawson Hair MD Authorized by: Lawson Hair MD Critical care provider statement: As reflected in the history, physical exam, orders, notes, and/or MDM, I was personally present while the patient was critically ill and provided critical care services for approximately 45 minutes, excluding time involved in separately billable procedures. ??Critical care was necessary to treat or prevent imminent or life-threatening deterioration of the following condition(s): ?? diabetic ketoacidosis, dehydration and acute electrolyte derangement ??Critical care was time spent by me providing the following: ? continuous telemetry, continuous pulse oximetry, continuous capnography, serial laboratory checks, serial bedside patient exams, interpretation of bedside monitors, imaging, and arterial/venous lab draws and resuscitation with fluids ?? glycemic control ?? I provided emergent necessary critical care [...] medical record. I admitted this patient to an Intensive Care unit (ICU) and discussed management with the admitting team. us Lawson Hair MD IN CLINIC/BEDSIDE ORDERABL ES Final Result * eGFR (04/28/2021 4:37 AM COMPETENCY EVALUATED NURSE AIDE) [facility] eGFR 143 mL/min/1. 73 m2 TOMY SAHU (DEMA) Comment: Interpretive Data Reference Interval Normal ?>/= [...] interpretive data was last reviewed 2021. Blood 04/28/2021 4:37 AM COMPETENCY EVALUATED NURSE AIDE 04/28/2021 4:41 AM COMPETENCY EVALUATED NURSE AIDE Lawson Hair MD LAB BLOOD ORDERABLES Final Result Performing Organization Address [facility]/ZIP Co de Phone Number TOMY SAHU (V[place]HTI) 1 [facility] [place] [address] * (ABNORMAL) Beta-hydroxybutyrate (04/28/2021 4:37 AM COMPETENCY EVALUATED NURSE AIDE) Beta-Hydroxybu tyrate 3.4(H) <=0.5 mmol/L [facility] ([place]) Comment:Testing performed by : [facility], [address] [place] [address], [id number] Blood 04/28/2021 4:37 AM COMPETENCY EVALUATED NURSE AIDE 04/28/2021 10:41 AM COMPETENCY EVALUATED NURSE AIDE Lawson Hair MD LAB BLOOD ORDERABLES Final Result Performing Organization Address [facility] Co de Phone Number TOMY SAHU ([place]) 1 [facility] [place] [employer] [place] [address] * (ABNORMAL) Blood gas, venous (04/28/2021 4:37 AM COMPETENCY EVALUATED NURSE AIDE) pH, Venous 7.34 7.32 - 7.43 [facility] ([place]) PCO2, Venous 33(L) 40 - 50 mmHg [facility] ([place]) PO2, Venous 107 mmHg [facility] ([place]) Comment: Interpretive Data No Reference Range Established Current Interpretive Data was last revised on 2017. HCO3 Venous, Calculated 17(L) 20 - 30 mmol/L [facility] ([place]) BE, venous -7 mmol/L [facility] ([place]) Comment: Interpretive Data No Reference Range Established Current Interpretive Data was last revised on 2017. Blood 04/28/2021 4:37 AM COMPETENCY EVALUATED NURSE AIDE 04/28/2021 4:41 AM COMPETENCY EVALUATED NURSE AIDE Lawson Hair MD LAB BLOOD ORDERABLES Final Result TOMY SAHU ([place]HTI) 1 [facility] [place] [address] * (ABNORMAL) Basic metabolic panel (04/28/2021 4:37 AM COMPETENCY EVALUATED NURSE AIDE) Sodium 134(L) 135 - 145 mmol/L [facility] ([place]) Potassium, pl 4.0 3.3 - 4.9 mmol/L [facility] ([place]) Chloride 102 97 - 110 mmol/L [facility] ([place]) CO2 16(L) 22 - 32 mmol/L [facility] ([place]) Anion gap 16(H) 2 - 15 mmol/L [facility] ([place]) BUN 13 8 - 25 mg/dL [facility] ([place]) Creatinine 0.38(L) 0.60 - 1.10 mg/dL [facility] ([place]) Glucose 216(H) 70 - 199 mg/dL [facility] ([place]) [...] interpretive data was last revised 2017. Calcium 8.7 8.5 - 10.3 mg/dL [facility] ([place]) Blood 04/28/2021 4:37 AM COMPETENCY EVALUATED NURSE AIDE 04/28/2021 4:41 AM COMPETENCY EVALUATED NURSE AIDE Lawson Hair MD LAB BLOOD ORDERABLES Final Result TOMY SAHU (V[place]HTI) 1 [facility] [place] [address] * Influenza A/B, RSV, and COVID-19 PCR Nasopharyngeal (04/28/2021 1:58 AM COMPETENCY EVALUATED NURSE AIDE) COVID-19 RNA Negative Negative [facility] ([place]ST[place]) Influenza A RNA Negative Negative [facility] ([place]) Influenza B RNA Negative Negative [facility] ([place]) RSV RNA Negative Negative ASHLEYNER LUIS ALBERTO ([place]HTI) Comment: Interpretive data: This test is performed using the [employer] Xpert Xpress CoV-2/Flu/RSV plus assay. This is [...] out infection. Interpretive Data last revised 2021. First COVID-19 test? No TOMY LUQUE) Employeed in healthcare? No TOMY SAHU ([place]ASHTI) status? Unknown CE RNJALEN SAHU ([place]HTI) Group care resident? No TOMY SAHU ([place]HTI) Hospitalized? Yes TOMY SAHU (V[place]HTI) Is patient in ICU? Unknown C ERNJALEN LUQUE) Symptomatic as defined by CDC? Yes TOMY SAHU ([place]) Nasopharyngeal 04/28/2021 1: 58 AM COMPETENCY EVALUATED NURSE AIDE 04/28/2021 2:00 AM COMPETENCY EVALUATED NURSE AIDE Narrative TOMY SAHU ([place]HTI) - 04/28/2021 2:59 AM COMPETENCY EVALUATED NURSE AIDE Date of Symptom Onset->04/28/21 Reason for testing?->Symptomatic (not immunocompromised) Known exposure to confirmed or suspected COVID-19 case?->No us Lawson Hair MD LAB MICROBIOLOGY - GENERAL ORDERABLES Final Result TOMY LUIS ALBERTO (V[place]HTI) 1 [facility] [place] [address] * (ABNORMAL) POCT glucose (04/28/2021 1:23 AM COMPETENCY EVALUATED NURSE AIDE) Glucose, POC 157(H) 71 - 98 mg/dL [facility] ([place]) Blood 04/28/2021 1:23 AM COMPETENCY EVALUATED NURSE AIDE 04/28/2021 1:23 AM COMPETENCY EVALUATED NURSE AIDE Dre Mancuso MD LAB POCT ORDERABLES - DEVICE F inal Result Performing Organization Address [facility] de Phone Number TOMY SAHU (V[place]HTI) 1 [facility] [place] [address] * (ABNORMAL) Urinalysis, microscopic only (04/28/2021 1:03 AM COMPETENCY EVALUATED NURSE AIDE) WBC, ur 6-10(A) 0 - 5 /HPF [facility] ([place]) RBC, ur 0-2 0 - 2 /HPF [facility] ([place]) Epithelial cells, squamous, ur 1-5 0 - 5 /HPF [facility] ([place]) Bacteria, ur Trace(A) [facility] ([place]) Mucous, ur Present(A) [facility] ([place]) Culture Reflex Comment Reflex conditions for urine culture (WBC >10) not met. [facility] ([place]) Urine, clean voided 04/28/2021 1:03 AM COMPETENCY EVALUATED NURSE AIDE 04/28/2021 1:03 AM COMPETENCY EVALUATED NURSE AIDE Dre Mancuso MD LAB URINE ORDERABLES Final Res ult Performing Organization Address [facility] de Phone Number T[facility]Y [facility] ([place]) 1 [facility] [place] [address] * (ABNORMAL) Urinalysis reflex to microscopic and culture Urine, clean voided (04/28/2021 1:03 AM COMPETENCY EVALUATED NURSE AIDE) Color, ur Yellow Yellow [facility] ([place]) Clarity, ur Clear Clear [facility] ([place]) Specific gravity, ur 1.032(H) 1.003 - 1.030 [facility] ([place]) pH, urine 5.5 [facility] ([place]) Protein, ur ql Trace Negative [facility] ([place]) Glucose, ur ql 4+(A) Negative [facility] ([place]) Ketones, ur 4+(A) Negative [facility] A ([place]) Bilirubin, ur Negative Negative TOMY SAHU ([place]) Blood, ur Negative Negative [facility] ([place]) Urobilinogen, ur <2.0 <2.0 mg/dL TOMY SAHU ([place]ASHTI) Nitrite, ur Negative Negative TOMY A (VASHTI) Leukocyte esterase, ur 2+(A) Negative TOMY SAHU ([place]HT[place]) UA reflex comment Reflex to microscopic UA will be performed. TOMY SAHU ([place]HTI) Urine, clean voided 04/28/2021 1:03 AM COMPETENCY EVALUATED NURSE AIDE 04/28/2021 1:03 AM COMPETENCY EVALUATED NURSE AIDE Narrative TOMY SAHU ([place]HTI) - 04/28/2021 1:10 AM COMPETENCY EVALUATED NURSE AIDE ?? Urine pH is affected by diet, medications, systemic acid-base disturbances, and renal tubular function. ??pH may affect urinary stone formation. ??For example, urine pH below 6.0 may help reduce the tendency for calcium phosphate stones and pH greater than 6.0 may reduce the tendency for uric acid stone formation. Source: [employer]. Last revised 05-13-2017 us Dre Mancuso MD LAB MICROBIOLOGY - GENERAL ORD ERABLES Final Result TOMY SAHU (V[place]HTI) 1 [facility] [place] [address] * eGFR (04/28/2021 12:20 AM COMPETENCY EVALUATED NURSE AIDE) eGFR 143 mL/min/1. 73 m2 TOMY SAHU ([place]HTI) Comment: [...] interpretive data was last reviewed 2021. Blood 04/28/2021 12:2 0 AM COMPETENCY EVALUATED NURSE AIDE 04/28/2021 12:22 AM COMPETENCY EVALUATED NURSE AIDE us Dre Mancuso MD LAB BLOOD ORDERABLES Final Res ult [facility] (DEMA) 1 [facility] [place] [address] * (ABNORMAL) Basic metabolic panel (04/28/2021 12:20 AM COMPETENCY EVALUATED NURSE AIDE) Sodium 135 135 - 145 mmol/L [facility] Potassium, pl 4.3 3.3 - 4.9 mmol/L [facility] ([place]) Chloride 102 97 - 110 mmol/L [facility] ([place]) CO2 17(L) 22 - 32 mmol/L [facility] (VSAHTI) Anion gap 16(H) 2 - 15 mmol/L [facility] ([place]) BUN 17 8 - 25 mg/dL [facility] ([place]) Creatinine 0.38(L) 0.60 - 1.10 mg/dL [facility] ([place]) Glucose 150 70 - 199 mg/dL [facility] ([place] Comment: Interpretive Data Fasting glucose [...] interpretive data was last revised 2017. Calcium 8.7 8.5 - 10.3 mg/dL TOMY SAHU ([place]HTI) Blood 04/28/2021 12:2 0 AM COMPETENCY EVALUATED NURSE AIDE 04/28/2021 12:22 AM COMPETENCY EVALUATED NURSE AIDE Dre Mancuso MD LAB BLOOD ORDERABLES Final Res ult Performing Organization Address City/[facility]/ZIP Co de Phone Number TOMY SAHU (DEMA) 1 [facility] [employer] [place] [address] * (ABNORMAL) POCT glucose (04/28/2021 12:17 AM COMPETENCY EVALUATED NURSE AIDE) Glucose, POC 133(H) 71 - 98 mg/dL [facility] ([place]) Comment:Glu2: MARY/ Notified Blood 04/28/2021 12:1 7 AM COMPETENCY EVALUATED NURSE AIDE 04/28/2021 12:17 AM COMPETENCY EVALUATED NURSE AIDE Dre Mancuso MD LAB POCT ORDERABLES - DEVICE F inal Result Performing Organization Address [facility] Co de Phone Number TOMY SAHU (VASHTI) 1 [facility] [place] [address] * (ABNORMAL) POCT glucose (04/27/2021 10:57 PM COMPETENCY EVALUATED NURSE AIDE) Glucose, POC 219(H) 71 - 98 mg/dL [facility] ([place]) Comment:Glu2: MARY/ Notified Blood 04/27/2021 10:5 7 PM COMPETENCY EVALUATED NURSE AIDE 04/27/2021 10:57 PM COMPETENCY EVALUATED NURSE AIDE us Dre Mancuso MD LAB POCT ORDERABLES - DEVICE F inal Result Performing Organization Address City/[facility]/ZIP Co de Phone Number TOMY SAHU (V[place]HTI) 1 [facility] [place] [employer] [place] [address] * (ABNORMAL) Blood gas, arterial (04/27/2021 10:24 PM COMPETENCY EVALUATED NURSE AIDE) pH, Art 7.35 7.35 - 7.45 [facility] ([place] PCO2, Arterial 30(L) 35 - 45 mmHg [facility] ([place]) PO2, Arterial 95 83 - 108 mmHg [facility] ([place]) HCO3 Art (Calculated) 16(L) 20 - 30 mmol/L [facility] ([place]) BE, art -8 mmol/L [facility] ([place]) Comment: Interpretive Data No Reference Range Established Current Interpretive Data was last revised on 2017 O2 Sat Art (Measured) 98(H) 90 - 95 % [facility] ([place]) Blood 04/27/2021 10:2 4 PM COMPETENCY EVALUATED NURSE AIDE 04/27/2021 10:28 PM COMPETENCY EVALUATED NURSE AIDE Dre Mancuso MD LAB BLOOD ORDERABLES Final Res ult Performing Organization Address City/[facility]/ZIP Co de Phone Number [facility] (DEMA) 1 [facility] [place] [address] * Ethanol (04/27/2021 9:38 PM COMPETENCY EVALUATED NURSE AIDE) Pathologist [facility] Ethanol <10 <=10 mg/dL [facility] ([place]) Comment: Interpretive Data Legal limit of intoxication > or = 80 mg/dL Levels > or = 400 mg/dL are potentially TOXIC. Current interpretive data was last revised on 2018. Blood 04/27/2021 9:38 PM COMPETENCY EVALUATED NURSE AIDE 04/28/2021 1:32 AM COMPETENCY EVALUATED NURSE AIDE us Lawson Hair MD LAB BLOOD ORDERABLES Final Result [facility] ([place]) 1 [facility] [place] [place] [address] * (ABNORMAL) Lipase (04/27/2021 9:38 PM COMPETENCY EVALUATED NURSE AIDE) Lipase 9(L) 10 - 99 Units/L [facility] ([place]) Blood 04/27/2021 9:38 PM COMPETENCY EVALUATED NURSE AIDE 04/28/2021 1:32 AM COMPETENCY EVALUATED NURSE AIDE Lawson Hair MD LAB BLOOD ORDERABLES Final Result Performing Organization Address City/[facility]/ZIP Co de Phone Number [facility] ([place]) 1 [facility] [place] [employer] [place] [address] * (ABNORMAL) Phosphorus (04/27/2021 9:38 PM COMPETENCY EVALUATED NURSE AIDE) Phosphorus, pl 1.7(L) 2.3 - 4.5 mg/dL [facility] ([place]) Blood 04/27/2021 9:38 PM COMPETENCY EVALUATED NURSE AIDE 04/28/2021 1:32 AM COMPETENCY EVALUATED NURSE AIDE Lawson Hair MD LAB BLOOD ORDERABLES Final Result Performing Organization Address [facility] Co de Phone Number [facility] ([place]) 1 [facility] [place] [place] [address] * Magnesium (04/27/2021 9:38 PM COMPETENCY EVALUATED NURSE AIDE) Magnesium 1.8 1.4 - 2.5 mg/dL [facility] ([place]) Blood 04/27/2021 9:38 PM COMPETENCY EVALUATED NURSE AIDE 04/28/2021 1:32 AM COMPETENCY EVALUATED NURSE AIDE Lawson Hair MD LAB BLOOD ORDERABLES Final Result Performing Organization Address [facility] Co de Phone Number TOMY [facility] ([place]) 1 [facility] [place] [address] * (ABNORMAL) Differential, auto (04/27/2021 9:38 PM COMPETENCY EVALUATED NURSE AIDE) Neutrophil abs 18.4(H) 1.7 - 6.5 K/cumm [facility] ([place]) Imm gran abs 0.2(H) 0.0 - 0.1 K/cumm [facility] ([place]) Lymphocyte abs 1.2 0.8 - 3.3 K/cumm [facility] ([place]) Monocyte abs 1.0(H) 0.2 - 0.8 K/cumm [facility] ([place]) Eosinophil abs 0.0 0.0 - 0.5 K/cumm [facility] ([place]) Basophil abs 0.1 0.0 - 0.1 K/cumm [facility] ([place]) Neutrophil pct 88.5 % [facility] ([place]) Comment: Interpretive Data Percent cell count reference ranges are not reported, since discordance with absolute values may lead to misinterpretation of CBC data. Current Interpretive Data was last revised on 2017. Imm gran pct 0.8 % [facility] ([place]) Comment: Interpretive Data Percent cell count reference ranges are not reported, since discordance with absolute values may lead to misinterpretation of CBC data. Current Interpretive Data was last revised on 2017. Lymphocyte pct 5.7 % [facility] ([place]) Comment: Interpretive Data Percent cell count reference ranges are not reported, since discordance with absolute values may lead to misinterpretation of CBC data. Current Interpretive Data was last revised on 2017. Monocyte pct 4.8 % [facility] ([place]) Comment: Interpretive Data [...] Data was last revised on 2017. Blood 04/27/2021 9:38 PM COMPETENCY EVALUATED NURSE AIDE 04/27/2021 9:40 PM COMPETENCY EVALUATED NURSE AIDE us Dre Mancuso MD LAB BLOOD ORDERABLES Final Res ult [facility] ([place]) 1 [facility] [place] [address] * (ABNORMAL) CBC with auto differential (04/27/2021 9:38 PM COMPETENCY EVALUATED NURSE AIDE) [facility] WBC 20.8(H) 3.8 - 9.9 K/cumm [facility] ([place]) Hgb 13.1 11.9 - 15.5 g/dL [facility] ([place]) Hct 42.6 35.6 - 45.5 % [facility] [facility] ([facility]) Plt 415(H) 150 - 400 K/cumm [facility] ([facility]) MPV 8.9(L) 9.1 - 12.3 fL [facility] ([facility]) RBC 5.12 3.90 - 5.20 M/cumm [facility] ([facility]) MCV 83.2 81.3 - 96.4 fL [facility] ([facility]) MCH 25.6(L) 27.1 - 33.3 pg [facility] ([facility]) MCHC 30.8(L) 32.3 - 35.7 g/dL [facility] ([facility]) RDW CV 16.3(H) 11.1 - 14.9 % [facility] ([facility]) RDW SD 49.8(H) 35.7 - 48.1 fL [facility] ([facility]) NRBC abs 0.00 0.00 - 0.01 [facility] Blood 04/27/2021 9:38 PM COMPETENCY EVALUATED NURSE AIDE 04/27/2021 9:40 PM COMPETENCY EVALUATED NURSE AIDE us Dre Mancuso MD LAB BLOOD ORDERABLES Final Res ult [facility] ([facility]) 1 [facility] [place] [address] * eGFR (04/27/2021 9:20 PM COMPETENCY EVALUATED NURSE AIDE) [facility] eGFR 143 mL/min/1. 73 m2 [facility] ([facility]) Comment: [...] interpretive data was last reviewed 2021. Blood 04/27/2021 9:20 PM COMPETENCY EVALUATED NURSE AIDE 04/27/2021 9:25 PM COMPETENCY EVALUATED NURSE AIDE us Dre Mancuso MD LAB BLOOD ORDERABLES Final Res ult [facility] ([facility]) 1 [facility] [place] [address] * (ABNORMAL) Comprehensive metabolic panel (04/27/2021 9:20 PM COMPETENCY EVALUATED NURSE AIDE) Sodium 133(L) 135 - 145 mmol/L [facility] ([facility]) Potassium, pl 4.5 3.3 - 4.9 mmol/L [facility] ([facility]) Chloride 96(L) 97 - 110 mmol/L [facility] ([facility]) CO2 14(L) 22 - 32 mmol/L [facility] ([facility]) Anion gap 23(H) 2 - 15 mmol/L [facility] ([facility]) BUN 19 8 - 25 mg/dL [facility] ([facility]) Creatinine 0.39(L) 0.60 - 1.10 mg/dL [facility] ([facility]) Glucose 259(H) 70 - 199 mg/dL [facility] ([facility]) [...] interpretive data was last revised 2017. Calcium 10.0 8.5 - 10.3 mg/dL [facility] ([facility]) Bilirubin, total 0.7 0.1 - 1.2 mg/dL [facility] ([facility]) Protein, pl 7.8 6.5 - 8.5 g/dL [facility] ([facility]) Albumin 4.4 3.5 - 5.0 g/dL [facility] ([facility]) Alk phos 89 40 - 130 Units/L [facility] ([facility]) ALT 29 7 - 45 Units/L [facility] ([facility]) AST 23 10 - 45 Units/L [facility] ([facility]) Comment:Slightly Hemolyzed S pecimen Blood 04/27/2021 9:20 PM COMPETENCY EVALUATED NURSE AIDE 04/27/2021 9:25 PM COMPETENCY EVALUATED NURSE AIDE us Dre Mancuso MD LAB BLOOD ORDERABLES Final Res ult [facility] ([facility]) 1 [facility] [place] [address] * ECG 12 lead (04/27/2021 9:08 PM COMPETENCY EVALUATED NURSE AIDE) 04/27/2021 9:08 PM COMPETENCY EVALUATED NURSE AIDE Narrative [facility] - 04/28/2021 10:44 AM COMPETENCY EVALUATED NURSE AIDE Vent Rate: 137 bpm RR Interval: 435 msec CO Interval: 100 msec QRS Duration: 70 msec QT Interval: 277 msec QTC Interval: 357 msec P-R-T [place]: 81 - 97 - 52 degrees SINUS TACHYCARDIA WITH SHORT CO INTERVAL BORDERLINE RIGHT AXIS DEVIATION [QRS AXIS > 90] MODERATE ST DEPRESSION [0.05+ mV ST DEPRESSION] ABNORMAL ECG Compared to prior EKG, ST segment changes are slightly more evident Electronically Signed By: Dariel Hsu MD us Dre Mancuso MD ECG ORDERABLES Final Result Performing Organization Address City/[facility]/ZIP Co de Phone Number [facility] * (ABNORMAL) POCT glucose (04/27/2021 8:56 PM COMPETENCY EVALUATED NURSE AIDE) [facility] Glucose, POC 226(H) 71 - 98 mg/dL [facility] ([facility]) Blood 04/27/2021 8:56 PM COMPETENCY EVALUATED NURSE AIDE 04/27/2021 8:56 PM COMPETENCY EVALUATED NURSE AIDE us Notinfile Unknown LAB POCT ORDERABLES - DEVICE F inal Result Performing Organization Address [facility] Co de Phone Number [facility] (VASHTI) 1 [facility] [place] [address] documented in this encounter Visit Diagnoses Diagnosis Diabetic ketoacidosis without coma associated with type 1 diabetes mellitus (CMS/HCC) (HCC)- Primary Diabetic ketoacidosis without coma associated with type 1 diabetes mellitus (CMS/HCC) (HCC) UTI (urinary tract infection), bacterial Sinus tachycardia Other specified cardiac dysrhythmias Hypophosphatemia Disorders of phosphorus metabolism Intractable vomiting with nausea Leukocytosis Leukocytosis, unspecified documented in this encounter Admitting Diagnoses Diagnosis Diabetic ketoacidosis without coma associated with type 1 diabetes mellitus (CMS/HCC) (HCC) documented in this encounter Administered Medications Inactive Administered Medications - up to 3 most recent administrations Medication Order MAR Action Action Date Dose Rate Site cefTRIAXone (ROCEPHIN) 1,000 mg/10 mL in sterile water (premix) 1,000 mg 1,000 mg, intravenous, at 600 mL/hr, Administer over 1 Minutes, Once, On 04/28/21 at 0113, For 1 dose, Indications: Urinary Tract/Genitourinary InfectionIndications:Urin tavia Tract/Genitourinary Infection Given 04/28/2021 1:55 AM COMPETENCY EVALUATED NURSE AIDE 1,000 mg 600 mL/hr dextrose (D10W) 10% bolus 250 mL 250 mL, intravenous, at 1,000 mL/hr, Administer over 15 Minutes, Every 15 min PRN, blood glucose less than 70 mg/dL and UNABLE to swallow/take PO glucose/juice., Starting on Wed04/28/21 at 1104, After treatment for hypoglycemia, recheck BG followed by treatment every 15 minutes until the BG is greater than 100 mg/dL. Then check BG 1 hour post treatment. If BG is less than 100 mg/dL, repeat Q15 minute BG checks and treatment. Call MD for each episode of hypoglycemia., Indications: hypoglycemic disorderIndications:hypog lycemic disorder dextrose 5% and Lactated Ringer's infusion 125 mL/hr, intravenous, Continuous, Starting on Wed04/28/21 at 1715 Rate/Dose Verify 04/29/2021 5:45 AM COMPETENCY EVALUATED NURSE AIDE 125 mL/hr 125 mL/hr New Bag 04/29/2021 12:38 AM COMPETENCY EVALUATED NURSE AIDE 125 mL/hr 125 mL/hr Rate/Dose Verify 04/28/2021 8:30 PM COMPETENCY EVALUATED NURSE AIDE 125 mL/hr 125 mL/ hr dextrose 5% and sodium chloride 0.9% infusion (premix) 125 mL/hr, intravenous, Continuous, Starting on Wed04/28/21 at 0116 New Bag 04/28/2021 1:26 AM COMPETENCY EVALUATED NURSE AIDE 125 mL/hr 125 mL/hr dextrose gel in packet 15 g 15 g, oral, Every 15 min PRN, low blood sugar, blood glucose less than 70 mg/dL, Starting on Wed04/28/21 at 1104, If patient is alert and able to [...] of hypoglycemia., Indications: hypoglycemic disorderIndications:hypo glycemic disorder insulin glargine (LANTUS, BASAGLAR, SEMGLEE) 100 unit/mL (3 mL) pen injection 20 Units 20 Units, subcutaneous, Once, On Wed04/28/21 at 0902, For 1 dose, Attach new pen needle required for each administration. Each new pen needle must be primed with 2 units prior to administration. Do not mix with other insulins. Given 04/28/2021 9:32 AM COMPETENCY EVALUATED NURSE AIDE 20 Units Right Upper Arm insulin glargine (LANTUS, BASAGLAR, SEMGLEE) 100 unit/mL (3 mL) pen injection 20 Units 20 Units, subcutaneous, Once, On Wed04/29/21 at 1200, For 1 dose, Attach new pen needle required for each administration. Each new pen needle must be primed with 2 units prior to administration. Do not mix with other insulins. Given 04/29/2021 12:03 PM COMPETENCY EVALUATED NURSE AIDE 20 Units Left Lower Abdomen insulin glargine (LANTUS, BASAGLAR, SEMGLEE) 100 unit/mL (3 mL) pen injection 20 Units 20 Units, subcutaneous, Nightly, First dose (after last modification) on Wed04/30/21 at 2100, Do not hold if NPO. Attach new pen needle required for each administration. Each new pen needle must be primed with 2 units prior to administration. Do not mix with other insulins., Indications: Diabetes MellitusIndications:Diab etes Mellitus insulin glargine (LANTUS, BASAGLAR, SEMGLEE) 100 unit/mL (3 mL) pen injection 5 Units 5 Units, subcutaneous, Once, On Wed04/28/21 at 1245, For 1 dose, Attach new pen needle required for each administration. Each new pen needle must be primed with 2 units prior to administration. Do not mix with other insulins. Given 04/28/2021 1:30 PM COMPETENCY EVALUATED NURSE AIDE 5 Units Left Upper Arm insulin lispro (HumaLOG, ADMELOG) 100 unit/mL pen injection 0-5 Units 0-5 Units, subcutaneous, Every 4 hours, First dose (after last modification) on Wed04/29/21 at 0015, Blood glucose mg/dL: 149 or less: No [...] administration., Indications: Diabetes MellitusIndications:Diab etes Mellitus Given 04/29/2021 12:02 PM COMPETENCY EVALUATED NURSE AIDE 1 Units Left Lower Abdomen Given 04/29/2021 4:01 AM COMPETENCY EVALUATED NURSE AIDE 2 Units Le ft Upper Arm Given 04/29/2021 12:04 AM COMPETENCY EVALUATED NURSE AIDE 2 Units L eft Lower Abdomen insulin regular in 0.9% sodium chloride (MYXREDLIN) 100 unit/100 mL (1 unit/mL) infusion (premix) 0-30 Units/hr (0-30 mL/hr), 1 units/mL, intravenous, Titrated, Starting on Wed04/27/21 at 2130, Until Wed04/28/21 at 1105, Indications: Hyperglycemia, Desired Range (mg/dL): 130-180 general patients, Multiplier: 0.01, NON-WEIGHT BASED DOSING Adjust rate per GlucoStabilizer program for dka order When new IV tubing is used, completely prime the tubing. Once primed, waste an additional 20 ml of insulin infusion using the IV pump prior to connecting to patient., RoutineIndications:Hyperglyc emia Rate/Dose Change 04/28/2021 7:55 AM COMPETENCY EVALUATED NURSE AIDE 3.9 Units/hr 3.9 mL/hr Rate/Dose Change 04/28/2021 6:44 AM COMPETENCY EVALUATED NURSE AIDE 2.9 Units/hr 2.9 m L/hr New Bag 04/28/2021 1:27 AM COMPETENCY EVALUATED NURSE AIDE 0.5 Units/hr 0.5 mL/hr Lactated Ringer's (LR) infusion 125 mL/hr, intravenous, Continuous, Starting on Wed04/28/21 at 0902 Rate/Dose Verify 04/28/2021 11:05 AM COMPETENCY EVALUATED NURSE AIDE 125 mL/hr 125 mL/hr New Bag 04/28/2021 9:13 AM COMPETENCY EVALUATED NURSE AIDE 125 mL/hr 125 mL/hr potassium phosphates 10 mmol in sodium chloride 0.9% 250 mL IVPB 10 mmol (rounded from 10.16 mmol = 0.16 mmol/kg ? 63.5 kg), intravenous, at 42.2 mL/hr, Administer over 6 Hours, Once, On Wed04/28/21 at 0338, For 1 dose, For PERIPHERAL line administration Each 1 mmol of phosphorus ordered contains ~1.5 mEq of potassium. New Bag 04/28/2021 4:39 AM COMPETENCY EVALUATED NURSE AIDE 10 mmol 42.2 mL/hr sodium chloride 0.9% bolus 1,000 mL 1,000 mL, intravenous, Once, On Wed04/28/21 at 0113, For 1 dose New Bag 04/28/2021 1:30 AM COMPETENCY EVALUATED NURSE AIDE 1,000 mL sodium chloride 0.9% bolus 1,000 mL 1,000 mL, intravenous, Once, On Wed04/28/21 at 0439, For 1 dose New Bag 04/28/2021 5:15 AM COMPETENCY EVALUATED NURSE AIDE 1,000 mL sodium chloride 0.9% bolus 2,000 mL 2,000 mL, intravenous, at 1,000 mL/hr, Administer over 2 Hours, Once, On Wed04/27/21 at 2130, For 1 dose New Bag 04/27/2021 9:49 PM COMPETENCY EVALUATED NURSE AIDE 2,000 mL 1000 mL/hr documented in this encounter Active and Recently Administered Medications Times are shown in COMPETENCY EVALUATED NURSE AIDE. Scheduled Medication Order 04/27/2021 04/28/2021 04/29/2021 cefTRIAXone (ROCEPHIN) 1,000 mg/10 mL in sterile water (premix) 1,000 mg (COMPLETED) 1,000 mg, intravenous, at 600 mL/hr, Administer over 1 Minutes, Once, On Wed04/28/21 at 0113, For 1 dose, Indications: Urinary Tract/Genitourinary Infection 0155 (Given - Provider: Jovanny Garcia RN) enoxaparin (LOVENOX) syringe 40 mg 40 mg, subcutaneous, Daily (for enoxaparin), First dose on Wed04/28/21 at 2100, Indications: Deep Vein Thrombosis Prevention 2058 (Not Given - Provider: Seng Jean RN - Reason: Patient/family refused) insulin glargine (LANTUS, BASAGLAR, SEMGLEE) 100 unit/mL (3 mL) pen injection 20 Units (COMPLETED) 20 Units, subcutaneous, Once, On Wed04/28/21 at 0902, For 1 dose, Attach new pen needle required for each administration. Each new pen needle must be primed with 2 units prior to administration. Do not mix with other insulins. 0932 (Given - Provider: Nicole Ingram RN) insulin glargine (LANTUS, BASAGLAR, SEMGLEE) 100 unit/mL (3 mL) pen injection 20 Units (COMPLETED) 20 Units, subcutaneous, Once, On Wed04/29/21 at 1200, For 1 dose, Attach new pen needle required for each administration. Each new pen needle must be primed with 2 units prior to administration. Do not mix with other insulins. 1203 (Given - Provider: Kathryn Nicole, MARY) insulin glargine (LANTUS, BASAGLAR, SEMGLEE) 100 unit/mL (3 mL) pen injection 20 Units 20 Units, subcutaneous, Nightly, First dose (after last modification) on Wed04/30/21 at 2100, Do not hold if NPO. Attach new pen needle required for each administration. Each new pen needle must be primed with 2 units prior to administration. Do not mix with other insulins., Indications: Diabetes Mellitus insulin glargine (LANTUS, BASAGLAR, SEMGLEE) 100 unit/mL (3 mL) pen injection 5 Units (COMPLETED) 5 Units, subcutaneous, Once, On Wed04/28/21 at 1245, For 1 dose, Attach new pen needle required for each administration. Each new pen needle must be primed with 2 units prior to administration. Do not mix with other insulins. 1330 (Given - Provider: Ida Augustine RN) insulin lispro (HumaLOG, ADMELOG) 100 unit/mL pen injection 0-4 Units 0-4 Units, subcutaneous, Nightly, First dose on Wed04/28/21 at 2100, Blood glucose mg/dL: 199 or less: No insulin 200-249: add 1 unit 250-299: add 2 units 300-349: add 3 units and notify physician for adjustment of insulin orders. 350-399: add 4 units and notify physician for adjustment of insulin orders. Over 400: Notify physician for adjustment of insulin orders. Do NOT hold for NPO Status Attach new pen needle required for each administration. Each new pen needle must be primed with 2 units prior to administration., Indications: Diabetes Mellitus 2036 (Not Given - Provider: Seng Jean RN - Reason: Order parameters not met) insulin lispro (HumaLOG, ADMELOG) 100 unit/mL pen injection 0-5 Units 0-5 Units, subcutaneous, Every 4 hours, First dose (after last modification) on Wed04/29/21 at 0015, Blood glucose mg/dL: 149 or less: No [...] units prior to administration., Indications: Diabetes Mellitus 0004 (Given - Provider: Seng Jean, RN)0401 (Given - Provider: Seng Jean, RN)1004 (Not Given - Provider: Kathryn Nicole, MARY - Reason: See Provider Order)1202 (Given - Provider: Kathryn Nicole, RN) insulin lispro (HumaLOG, ADMELOG) 100 unit/mL pen injection 3 Units 3 Units (rounded from 3.175 Units = 0.05 Units/kg ? 63.5 kg), subcutaneous, 3 times daily with meals, First dose on Wed04/28/21 at 1200, If BG greater than or equal to 100 mg/dL, give dose with meals when tray arrives in the room. If BG less than 100 mg/dL or history of poor intake, give after meals. If patient eating less than 50% of meal, call MD for holding or reducing meal insulin dose. Hold prandial insulin if NPO, unable to eat, or if BG less than 70 mg/dL. Attach new pen needle required for each administration. Each new pen needle must be primed with 2 units prior to administration., Indications: Diabetes Mellitus 1328 (Not Given - Provider: Ida Augustine, MARY - Reason: Patient/family refused)1730 (Not Given - Provider: Ida Augustine RN - Reason: Other - Comment: patient did not eat) 1004 (Not Given - Provider: Kathryn Nicole, MARY - Reason: See Provider Order)1130 (Not Given - Provider: Kathryn Nicole, RN - Reason: Patient/family refused) potassium phosphates 10 mmol in sodium chloride 0.9% 250 mL IVPB (COMPLETED) 10 mmol (rounded from 10.16 mmol = 0.16 mmol/kg ? 63.5 kg), intravenous, at 42.2 mL/hr, Administer over 6 Hours, Once, On Wed04/28/21 at 0338, For 1 dose, For PERIPHERAL line administration Each 1 mmol of phosphorus ordered contains ~1.5 mEq of potassium. 0439 (New Bag - Provider: Lawanda Bergeron, MARY)1035 (Stopped - Provider: Nicole Ingram, MARY) sodium chloride 0.9% bolus 1,000 mL (COMPLETED) 1,000 mL, intravenous, Once, On Wed04/28/21 at 0113, For 1 dose 0130 (New Bag - Provider: Jovanny Garcia RN)0448 (Stopped - Provider: Jovanny Garcia RN) sodium chloride 0.9% bolus 1,000 mL (COMPLETED) 1,000 mL, intravenous, Once, On Wed04/28/21 at 0439, For 1 dose 0515 (New Bag - Provider: Jovanny Garcia RN)0630 (Stopped - Provider: Nicole Ingram, MARY) sodium chloride 0.9% bolus 2,000 mL (COMPLETED) 2,000 mL, intravenous, at 1,000 mL/hr, Administer over 2 Hours, Once, On Wed04/27/21 at 2130, For 1 dose 2149 (New Bag - Provider: Jovanny Garcia RN) 0101 (Stopped - Provider: Jovanny Garcia, MARY) Continuous Medication Order 04/27/2021 04/28/2021 04/29/2021 dextrose 5% and Lactated Ringer's infusion 125 mL/hr, intravenous, Continuous, Starting on Wed04/28/21 at 1715 1641 (New Bag - Provider: Ida Augustine, MARY)2030 (Rate/Dose Verify - Provider: Seng Jean, MARY) 0038 (New Bag - Provider: Gilma Harding RN)0545 (Rate/Dose Verify - Provider: Seng Jean, MARY) dextrose 5% and sodium chloride 0.9% infusion (premix) (CANCELED) 125 mL/hr, intravenous, Continuous, Starting on Wed04/28/21 at 0116 0126 (New Bag - Provider: Joelle Mireles RN)0910 (Stopped - Provider: Nicole Ingram, MARY) insulin regular in 0.9% sodium chloride (MYXREDLIN) 100 unit/100 mL (1 unit/mL) infusion (premix) (CANCELED) 0-30 Units/hr (0-30 mL/hr), 1 units/mL, intravenous, Titrated, Starting on Wed04/27/21 at 2130, Until Wed04/28/21 at 1105, Indications: Hyperglycemia, Desired Range (mg/dL): 130-180 general patients, Multiplier: 0.01, NON-WEIGHT BASED DOSING Adjust rate per GlucoStabilizer program for dka order When new IV tubing is used, completely prime the tubing. Once primed, waste an additional 20 ml of insulin infusion using the IV pump prior to connecting to patient., Routine 2201 (New Bag - Provider: Jovanny Garcia RN)2301 (Rate/Dose Change - Provider: Jovanny Garcia RN) 0013 (Rate/Dose Change - Provider: Jovanny Garcia RN)0127 (New Bag - Provider: Joelle Mireles RN - Comment: per ER order to continue drip at .5)0644 (Rate/Dose Change - Provider: Nicole Ingram RN - Comment: per glocuse stabilizer)0755 (Rate/Dose Change - Provider: Nicole Ingram RN - Comment: BS 158 per stabilizer)0900 (Stopped - Provider: Nicole Ingram RN) Lactated Ringer's (LR) infusion (CANCELED) 125 mL/hr, intravenous, Continuous, Starting on Wed04/28/21 at 0902 0913 (New Bag - Provider: Nicole Ingram RN)1105 (Rate/Dose Verify - Provider: Ida Augustine RN) PRN Medication Order 04/27/2021 04/28/2021 04/29/2021 dextrose (D10W) 10% bolus 250 mL(Linked Group 1) 250 mL, intravenous, at 1,000 mL/hr, Administer over 15 Minutes, Every 15 min PRN, blood glucose less than 70 mg/dL and UNABLE to swallow/take PO glucose/juice., Starting on Wed04/28/21 at 1104, After treatment for hypoglycemia, recheck BG followed [...] glucose less than 70 mg/dL, Starting on Wed04/28/21 at 1104, If patient is alert and able to [...] unable to take PO glucose/juice., Starting on Wed04/28/21 at 1104, After Glucagon is administered, position patient on [...] glucose less than 70 mg/dL, Starting on Wed04/28/21 at 1104, If patient is alert and able to [...] UNABLE to swallow/take PO glucose/juice., Starting on 04/28/21 at 1104, After treatment for hypoglycemia, recheck BG followed [...] Count Last Ordered Date First Ordered Date insulin glargine (LANTUS, BA SAGLAR, SEMGLEE) 100 unit/mL (3 mL) pen injection 20 Units 4 04/29/2021 04/28/2021 cefTRIAXone (ROCEPHIN) 1,000 mg/10 mL in sterile water (premix) 1,000 mg 2 04/28/2021 dextrose (D10W) 10% bolus 250 mL 1 04/28/20 21 dextrose gel in packet 15 g 1 04/28/2021 enoxaparin (LOVENOX) syringe 40 mg 1 2020 glucagon injection 1 mg 1 04/28/2021 insulin glargine (LANTUS, BA SAGLAR, SEMGLEE) 100 unit/mL (3 mL) pen injection 10 Units 1 04/28/2021 insulin glargine (LANTUS, BA SAGLAR, SEMGLEE) 100 unit/mL (3 mL) pen injection 18 Units 1 04/28/2021 insulin glargine (LANTUS, BA SAGLAR, SEMGLEE) 100 unit/mL (3 mL) pen injection 4 Units 1 04/28/2021 insulin lispro (HumaLOG, ADM ELOG) 100 unit/mL pen injection 0-4 Units 1 04/28/2021 insulin lispro (HumaLOG, ADM ELOG) 100 unit/mL pen injection 0-5 Units 2 04/28/2021 insulin lispro (HumaLOG, ADM ELOG) 100 unit/mL pen injection 3 Units 2 04/28/2021 Lactated Ringer's (LR) bolus 1,000 mL 1 potassium, sodium phosphates (PHOS-NAK) 280-160-250 mg packet 2 packet 1 04/28/2021 dextrose (D10W) 10% bolus 1-500 mL 1 2020 dextrose 5% infusion 1 04/27/2021 insulin regular bolus from bag 1-10 Units 1 04/27/2021 metoclopramide (REGLAN) injection 5 mg 1 ondansetron (ZOFRAN) injection 4 mg 1 04/27 potassium chloride 40 mEq/52 0 mL in sodium chloride 0.9% (premix) 40 mEq 1 04/27/2021 sodium chloride 0.45% infusion 1 04/27/2021 Lab Orders Without Results Count Last Ordered D ate First Ordered Date POCT GLUCOSE DEVICE 4 04/29/2021 04/28/20 21 Diet Count Last Ordered Date First Orde red Date ADULT DISCHARGE DIET 1 04/29/2021 Nursing Count Last Ordered Date First Orde red Date DISCHARGE ACTIVITY 1 04/29/2021 DISCHARGE CALL PROVIDER 3 04/29/2021 Consult Count Last Ordered Date First Orde red Date IP CONSULT TO ENDOCRINOLOGY 1 04/28/2021 ADT Patient Update Count Last Ordered Date Firs t Ordered Date ED IP DECISION TO ADMIT 1 04/28/2021 documented in this encounter Additional Health Concerns Infection Onset Date Last Indicated Resolved Time COVID: Suspected 04/28/2021 04/28/2021 04/28/2021 3:00 AM COMPETENCY EVALUATED NURSE AIDE documented as of this encounter Care Teams Senior Project Accountant Relationship Specialty Start Date End Date Carrie Joseph PA [address] [place] [address] PCP - General 10/04/18 07/19/21 Warren Phillips MD [address] [place] [address] Consulting Physician Gastroenterology 02/16/19 documented as of this encounter
--- OUTSIDE RECORDS SUMMARY | 2024-05-10 18:37 | XMS_ITS | Encounter Summary ---
Author Organization [facility] Healthcare Address [address] [place] [address] Care Team Providers Care Mail Order Sorter Name Role Phone Warren Phillips MD Unavailable [phone] No, Physician Primary Care Provider [phone] Miscellaneous, Not In File Unavailable Unava ilable Reason for Visit * Reason Comments Hyperglycemia Vomiting Encounter Details Date Type Department Care Team (Latest Contact Info) Description 07/20/2021 12:03 PM CDT - 07/23/2021 4:36 PM CDT Hospital Encounter [facility] [address] [place] [address] Tavo Ochoa MD [address] [place] [address] [place] [address] Dominic Camara MD [address] [facility] [address] [place] [address] Cally Crespo MD [address] [facility] [place] [address] Diabetic ketoacidosis without coma associated with type 1 diabetes mellitus (CMS/HCC) (HCC) (Primary Dx); Diabetic ketoacidosis with coma associated with type 1 diabetes mellitus (CMS/HCC) (HCC) Discharge Disposition: Discharge to home [...] on file 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 Gender Identity Not on file Sexual Orientation Not on file documented as of this encounter Last Filed Vital Signs Vital Sign Reading Time Taken Comments Blood Pressure 103/64 07/23/2021 3:00 PM CDT Pulse 73 07/23/2021 3:00 PM CDT Temperature 36.4 ??C (97.5 ??F) 07/23/2021 3:00 PM CD T Respiratory Rate 20 07/23/2021 3:00 PM CDT Oxygen Saturation 99% 07/23/2021 3:00 PM CDT Inhaled Oxygen Concentration - - Weight 73.1 kg (161 lb 2.5 oz) 07/22/2021 11:28 AM CDT Height 154.9 cm (5' 1 ) 07/22/2021 11:28 AM CDT Body Mass Index 30.45 07/22/2021 11:28 AM CDT documented in this encounter Discharge Diagnoses Diagnosis Type 1 diabetes mellitus with ketoacidosis without coma (HCC) - TYPE 1 DIABETES MELLITUS WITH KETOACIDOSIS WITHOUT COMA Dehydration - DEHYDRATION Hypokalemia - HYPOKALEMIA Hypopotassemia Depression, unspecified - DEPRESSION, UNSPECIFIED Cannabis abuse, uncomplicated - CANNABIS ABUSE, UNCOMPLICATED Patient's other noncompliance with medication regimen - PATIENT'S OTHER NONCOMPLIANCE WITH MEDICATION REGIMEN Patient's noncompliance with other medical treatment and regimen - PATIENT'S NONCOMPLIANCE WITH OTHER MEDICAL TREATMENT AND REGIMEN detention (current) use of insulin (HCC) - [facility] (CURRENT) USE OF INSULIN documented in this encounter Discharge Summaries * Cally Crespo MD - 07/23/2021 2:55 PM CDT Inpatient Discharge Summary BRIEF OVERVIEW Admitting Provider: Dominic Camara MD Discharge Provider: Cally Crespo MD Primary Care Physician at Discharge: Deena, Physician [phone] Admission Date: 07/20/2021 Discharge Date: 07/23/2021 Admission Location: [facility] Problems/Diagnoses: Principal Problem: Diabetic ketoacidosis without coma associated with type 1 diabetes mellitus (CMS/HCC) (HCC) Active Problems: Uncontrolled type 1 diabetes mellitus with hyperglycemia (CMS/HCC) (HCC) Hypokalemia Resolved Problems: No resolved hospital problems. DETAILS OF HOSPITAL STAY Presenting Problem/History of Present Illness: Patient is a 26-year-old woman with known type 1 diabetes mellitus with previous history of poor medical compliance in admissions for diabetic ketoacidosis. Patient presented to the emergency room with complaint of hyperglycemia associated with nausea, vomiting and diarrhea. Patient denied chest pain, shortness of breath and abdominal pain. On evaluation the emergency room, she was found to be inDKA. Patient admitted to the ICU for further evaluation and treatment. Hospital Course: Patient was initially admitted to ICU started on DKA protocol. Patient was able to transition from IV insulin to subcutaneous Lantus with scheduled Humalog. Patient additionally was noted to have lowpotassium but would not take oral potassium replacement. She also was noted to have initial problems or with continued decreased appetite with nausea. Patient did have improvement of symptoms with improvement of her glucose levels. She was able to transfer out of the ICU to the medical floor on 07/22/2021. She remained on the medical floor for the duration of her stay. She was eating at least 50%of her meals by the time of discharge. She was seen by the promotion specialist while in hospital. Lant us dose was adjusted to Q 12 hours. Discussion was held with patient to follow- up with her deer farmer as an outpatient. She had no other acute issues while in hospital. With the patient improved appropriately and otherwise stable, she was able to discharge home on July 23, 2021. Active Issues Requiring Follow-up: Management of Type 1 diabetes mellitus Test Results Pending at Discharge: None Operative Procedures Performed: None Other Procedures: None Pertinent Test Results: Final laboratory results: Results for KARINA MENJIVAR ( ) as of 07/23/2021 17:20 Ref. Range 07/23/2021 02:15 Sodium Latest Ref Range: 135 - 145 mmol/L 136 Potassium, pl Latest Ref Range: 3.3 - 4.9 mmol/L 3.2 (L) Chloride Latest Ref Range: 97 - 110 mmol/L 94 (L) CO2 Latest Ref Range: 22 - 32 mmol/L 21 (L) Anion gap Latest Ref Range: 2 - 15 mmol/L 21 (H) BUN Latest Ref Range: 8 - 25 mg/dL 11 Creatinine Latest Ref Range: 0.60 - 1.10 mg/dL 0.46 (L) Glucose Latest Ref Range: 70 - 199 mg/dL 251 (H) Calcium Latest Ref Range: 8.5 - 10.3 mg/dL 8.9 Bilirubin, total Latest Ref Range: 0.1 - 1.2 mg/dL 0.8 Protein, pl Latest Ref Range: 6.5 - 8.5 g/dL 6.5 Albumin Latest Ref Range: 3.5 - 5.0 g/dL 4.0 eGFR Latest Units: mL/min/1.73 m2 136 Alk phos Latest Ref Range: 40 - 130 Units/L 93 AST Latest Ref Range: 10 - 45 Units/L 14 ALT Latest Ref Range: 7 - 45 Units/L 14 WBC Latest Ref Range: 3.8 - 9.9 K/cumm 7.8 Hgb Latest Ref Range: 11.9 - 15.5 g/dL 12.6 Hct Latest Ref Range: 35.6 - 45.5 % 38.0 Plt Latest Ref Range: 150 - 400 K/cumm 302 MPV Latest Ref Range: 9.1 - 12.3 fL 10.2 RBC Latest Ref Range: 3.90 - 5.20 M/cumm 4.86 MCV Latest Ref Range: 81.3 - 96.4 fL 78.2 (L) MCH Latest Ref Range: 27.1 - 33.3 pg 25.9 (L) MCHC Latest Ref Range: 32.3 - 35.7 g/dL 33.2 RDW CV Latest Ref Range: 11.1 - 14.9 % 16.0 (H) RDW SD Latest Ref Range: 35.7 - 48.1 fL 45.2 NRBC abs Latest Ref Range: 0.00 - 0.01 K/cumm 0.00 Neutrophil abs Latest Ref Range: 1.7 - 6.5 K/cumm 5.3 Imm gran abs Latest Ref Range: 0.0 - 0.1 K/cumm 0.1 Lymphocyte abs Latest Ref Range: 0.8 - 3.3 K/cumm 1.7 Monocyte abs Latest Ref Range: 0.2 - 0.8 K/cumm 0.8 Eosinophil abs Latest Ref Range: 0.0 - 0.5 K/cumm 0.0 Basophil abs Latest Ref Range: 0.0 - 0.1 K/cumm 0.0 Neutrophil pct Latest Units: % 67.9 Imm gran pct Latest Units: % 0.6 Lymphocyte pct Latest Units: % 21.5 Monocyte pct Latest Units: % 9.7 Eosinophil pct Latest Units: % 0.0 Basophil pct Latest Units: % 0.3 Microbiology: None Radiology: None Discharge Details Physical Exam at Discharge: Discharge Condition: good Pulse: 114 Resp: 20 BP: 122/82 Temp: 36.3 ??C (97.4 ??F) Weight: 73.1 kg (161 lb 2.5 oz) Pertinent Exam Findings at Discharge: General: Awake and alert. No acute distress. HEENT: EOMI, [place], mucous membranes moist. Neck: supple, no lymphadenopathy. CV: Heart regular rate and rhythm. Respiratory: Lungs clear to auscultation bilaterally, no rales, rhonchi or wheezes, good inspiratory effort. GI: Abdomen with bowel sounds present, soft, nontender, nondistended, no hepatomegaly. : Not examined. Extremities: No gross edema, pedal artery pulses present bilaterally. Neurologic: Oriented x 3. Speech clear. Moves all extremities. Musculoskeletal: No gross joint erythema, edema, tenderness. Skin: No rash or lesion seen. Psychiatric: Appropriate mood and affect. Discharge Disposition: Discharge to home. Code Status at Discharge: Full code Discharge Instructions: She will follow-up with her regular deer farmer, Dr. Sanches. Additional discharge instructions as noted below. Activity Instructions Discharge activity: Resume normal activity [...] doctor for referral tooutpatient nutrition counseling. Call [facility] Dietitian's office at [phone] for questions about your diet. Additional resources available from the [place] [employer] can be found at www.diabetes.org/nutrition Other Instructions Call provider for: difficulty breathing or chest pain Call provider for: persistent dizziness or light-headedness Call provider for: persistent nausea or vomiting Call provider for: headache, visual disturbances, weakness and speech changes Discharge Medications: Current Medications TAKE these medications insulin glargine 100 unit/mL (3 mL) pen for injection Inject 10 Units under the skin every 12 (twelve) hours Commonly known as: LANTUS, BASAGLAR, SEMGLEE insulin lispro 100 unit/mL vial for injection Inject under the skin 3 (three) times a day before meals Uses per sliding scale 1 unit per every 7-8 grams of carb max of 50 units per day Commonly known as: HumaLOG, ADMELOG insulin syringe-needle U-100 0.3 mL 31 gauge x 5/16 syringe 1 Syringe OneTouch Verio test strips strip USE 1 STRIP TO CHECK GLUCOSE 4 TIMES DAILY Generic drug: blood glucose diagnostic TechLITE Insuln Syr(half unit) 0.3 mL 31 gauge x 5/16 syringe USE ONE NEW SYRINGE 4 TIMES Generic drug: insulin syr/ndl U100 half jeremias Outpatient Follow-Up: Contact Information for Follow-ups Miscellaneous, Not In File Next Steps: Follow up Instructions: Follow-up with Dr. Sanches in 1 week. Call for appointment. Questions: Instructions for follow-up (appointment date and time): Follow-up with Dr. Sanches in 1 week. Call for appointment. To provider: MISCELLANEOUS, NOT IN FILE Total time spent in discharge: 35 minutes Cally Crespo MD Director of Family Medicine Inpatient Services Boiler Installer, [facility] documented in this encounter Discharge Instructions * Discharge Instr - Diet* Lucinda Woodward RD - 07/21/2021 2:43 PM CDT Continue to follow a Consistent [...] doctor for referral tooutpatient nutrition counseling. Call [facility] Outpatient Dietitian's office at [phone] for questions about your diet. Additional resources available from the [place] [employer] can be found at www.diabetes.org/nutrition * Discharge Instr - Other Orders* Мария Lira, MARY - 07/23/2021 3:18 PM CDT If you have any questions or concerns following discharge, please call U at [phone]. documented in this encounter Medications at Time [...] 02/21/2020 01/29/2022 documented as of this encounter Ordered Prescriptions Prescription Sig Dispense Quantity Refills Last Filled Start Date End Date insulin glargine (insulin glargine) 100 unit/mL (3 mL) pen for injection Inject 10 Units under the skin every 12 (twelve) hours 6 mL 07/23/2021 01/30/2022 documented in this encounter Discharge Disposition Disposition Code Departure Means Destination Discharge to home or self care documented in this encounter Progress Notes * Alejandrina Gil - 07/23/2021 10:10 AM CDT Karina Menjivar [id number] Dominic Camara MD Pre-Education Assessment Visit Type: Initial Introduction: Alert/ oriented x 4, Education provided with patient approval, Patient present and able to participate Provider: Medical/Senior Investigator/PCP Treatment Prior To Admission: Blood glucose monitoring, Insulin Knowledge Base: Experienced Hemaglobin A1c: Knows value Home Testing: Greater than 2 times per day Adherence To: Insulin regimen, Blood Glucose Testing Regimen, Carb counting Exercise Habits: Active Hypoglycemia: Hardly ever Home Supplies: No assistance needed Diabetes Management Education Provided: Please see the Patient Education Activity Patient seen as requested for diabetes education. Patient awake and receptive to education. Patientstated she is hoping she will be discharged soon. When asked what brought her in to the hospital, patient stated that she wasn't feeling well for a few days. She wasn't eating much and was admitted to the hospital for DKA. Patient stated that she takes her insulin and checks her blood sugar as prescribed. Patient has all supplies available to her. Patient stated she sees Dr. Sanches for endocrinology. Patient stated she thinks there is a correlation between her getting sick and starting her period. She said that every time she is not feeling well and has high blood sugars she starts her period a couple of days later. In May, she stated she did not have a period and was not sick/did not have hyperglycemia. I asked if she has talked with Dr. Sanches about this and she said that she has discussedthis with him. Patient stated there is nothing she needs from me at this time. I left the phone number for the diabetes education office as well as a handout for sick day management. Encouraged patient to call if she has any questions or needs. Alejandrina Gil, Sr. Social Media & Mobile Manager 07/23/2021 11:22 AM * Lucinda Woodward, RD - 07/22/2021 1:57 PM CDT Nutrition Assessment Reason for Assessment: Follow Up and Diet Education Encounter Date: 07/22/21 1:58 PM Nutrition Assessment and Plan: Patient is a 26 y.o. female. Admit Dx: DIABETIC KETOACIDOSIS WITHOUT COMA ASSOCIATED WITH TYPE 1 DIABETES MELLITUS. Admitted on 07/20/2021, current LOS is 2 days. Adult Malnutrition Scoring Tool (MST) Have You Recently Lost Weight Without Trying?: No Have you been eating poorly because of a decreased appetite?: Yes Malnutrition Screening Tool (MST) Score: 1 Current diet order: Adult Diet Restricted; Consistent Carbohydrate Pt intake is inadequate. PO intakes: refusing When speaking with pt about increasing her intake she said, I don't want to because I'm nauseated and I don't want to throw up . Nutrition Diagnosis 1: Food and nutrition-related knowledge deficit Related to: Chronic illness/injury, Nausea, Vomiting Evidenced by: Physical finding, PO under 50% ?? Interventions: [place] diet preferences within the limits of nutrition care order, Initial assessment, Meals and snacks ?? Monitoring and Evaluation: Blood glucoses, Discharge plans, Diet-related questions, Labs, PO intake ?? Goals: Adequate nutrition to meet estimated needs by next assessment ?? Recommendations: Per pt, No questions about diet . Nutrition Diagnosis 2: Inadequate oral intakeRelated to: NauseaEvidenced by: Patient interview, Physical finding, PO under 50% ?? Interventions: [place] diet preferences within the limits of nutrition care order, Enteral nutrition administration ?? Monitoring and Evaluation: Blood glucoses, Diet-related questions, TF tolerance ?? Goals: Tolerance of enteral feeding at goal rate ?? Recommendations: D/T continued poor intake, recommend tube feeding of Glucerna 1.2 at 63 ml/hr (goal) with h20 flush every 4 hours of 100 ml/flush. Wt Readings from Last 10 Encounters: 07/22/21 73.1 kg (161 lb 2.5 oz) 12/27/21 76.5 kg (168 lb 11.2 oz) 03/26/21 64.1 kg (141 lb 5 oz) 03/05/21 66 kg (145 lb 8.1 oz) 11/16/20 73.5 kg (162 lb) 11/17/20 73.5 kg (162 lb 0.6 oz) 03/12/20 72.6 kg (160 lb) 03/07/20 73.9 kg (163 lb) 12/01/19 75.9 kg (167 lb 5.3 oz) 06/16/19 61 kg (134 lb 7.7 oz) Estimated needs: ?? Total Kcal/kg Estimated Needs : 1791.4 based on Kcal/k. Type of Weight Used for Estimated Kcals: Current ?? [facility] Total Energy Needs: 1782.3 kcal using Activity Factor: 1.3 ?? [facility] Total Energy Needs + Fever Factor: 1782.3 ?? Total Protein Estimated Needs (gm): 55.12 Protein Needs Based on g/k.8 Type of Weight Used for Estimated Protein : Current. ?? Total Fluid Estimated Needs: 1791.4 Fluid Needs Based on : 1 ml/kcal. Objective Anthropometrics Weight: 73.1 kg (161 lb 2.5 oz) Admission Weight : 68.9 kg Weight Change: 4.20 kg (9.25 lbs) IBW/kg (Calculated) : 47.6 kg Height: 154.9 cm (5' 1 ) Weight in (lb) to have BMI = 25: 132 BMI (Calculated): 30.5 3 Day I/O Summary 07/20 1900 - 07/22 0659 In: 5510.3 [P.O.:120; I.V.:5390.3] Out: 3200 [Urine:3150] Temp: 36.8 ??C (98.2 ??F) Past Medical History: Diagnosis Date ??? Depression ??? Diabetes mellitus (HCC) T1DM ??? HX OTHER MEDICAL 2011 Diabetes mellitus, type 1 ??? Miscarriage Medications and Lab Review: Scheduled Meds: enoxaparin, 40 mg, subcutaneous, Daily-2100 famotidine, 20 mg, intravenous, Q12H BOB insulin glargine, 10 Units, subcutaneous, Q12H BOB insulin lispro, 0-10 Units, subcutaneous, TID with meals insulin lispro, 0-5 Units, subcutaneous, Nightly potassium chloride, 40 mEq, feeding tube, Once scopolamine, 1 patch, transdermal, Once Continuous Infusions: dextrose 5% and sodium chloride 0.45%, 50 mL/hr, Last Rate: 50 mL/hr (07/22/21 1010) Sodium Date Value Ref Range Status 07/22/2021 136 135 - 145 mmol/L Final Potassium, pl Date Value Ref Range Status 07/22/2021 2.9 (Critical) 3.3 - 4.9 mmol/L Final Comment: Critical Result called to and read back by Gabe Gan (ICU), DATE: 2021-07-22 07:35:39 BY: Amna Spear BUN Date Value Ref Range Status 07/22/2021 4 (L) 8 - 25 mg/dL Final Creatinine Date Value Ref Range Status 07/22/2021 0.37 (L) 0.60 - 1.10 mg/dL Final Albumin Date Value Ref Range Status 07/22/2021 3.7 3.5 - 5.0 g/dL Final Calcium Date Value Ref Range Status 07/22/2021 8.7 8.5 - 10.3 mg/dL Final Lab Results Component Value Date HGBA1C 6.7 (H) 04/28/2021 POC Glucose: 256(07/22) Nursing Assessment: Last BM Date: 07/22/21 Bowel Sounds (All Quadrants): Active Emesis Assessment Emesis Color/Appearance: Green, Clear Teodoro Scale Score: 19 Skin Integrity: Intact Diet Instructions Continue to follow a Consistent [...] doctor for referral tooutpatient nutrition counseling. Call [facility] Outpatient Dietitian's office at [phone] for questions about your diet. Additional resources available from the [place] [employer] can be found at www.diabetes.org/nutrition Nutrition Follow-Up : 07/25/[address],LDN * Dominic Camara MD - 07/22/2021 6:23 AM CDT Progress Note Critical Care Subjective: Awake Chief complaint of hyperglycemia Interval History: 26-year-old female admitted with nausea vomit hyperglycemia dehydration found to be in DKA has history of depression medical noncompliance diabetes mellitus previous multiple recurrent admissions forDKA treated with crystalloid infusion insulin drip has remained hemodynamically stable. Ready to transition to subcutaneous insulin and diet she continues to complain of nausea unwilling to eat receive medications. Review of Systems All other systems reviewed and are negative. Medications: enoxaparin, 40 mg, subcutaneous, Daily-2100 famotidine, 20 mg, intravenous, Q12H BOB scopolamine, 1 patch, transdermal, Once Subjective: Vitals: 24hr Min/Max: Temp Min: 35.9 ??C (96.7 ??F) Max: 36.2 ??C (97.2 ??F) Pulse Min: 90 Max: 129 BP Min: 102/68 Max: 157/96 Resp Min: 9 Max: 22 SpO2 Min: 96 % Max: 100 % Date 07/21/21699 - 07/22/2165807/22/21699 - 07/23/21 0659 Shift 4014-4901 4971-4389 24 Hour Total 8916-6957 4138-9136 24 Hour Total INTAKE P.O. 120 120 I.V.(mL/kg) 1466.3(21.3) 1652(24) 3118.3(45.3) Shift Total(mL/kg) 1466.3(21.3) 1772(25.7) 3238.3(47) OUTPUT Urine(mL/kg/hr) 750(0.9) 1300 0 Emesis/NG output 50 50 Shift Total(mL/kg) 750(10.9) 1350(19.6) 2100(30.5) NET 716.3 422 1138.3 Weight (kg) 68.9 68.9 68.9 68.9 68.9 68.9 Physical Exam Vitals and nursing note reviewed. HENT: Head: Normocephalic. Nose: Nose normal. Eyes: Extraocular Movements: Extraocular movements intact. Cardiovascular: Rate and Rhythm: Normal rate. Heart sounds: Normal heart sounds. Pulmonary: Effort: Pulmonary effort is normal. Abdominal: Palpations: Abdomen is soft. Musculoskeletal: General: No deformity. Cervical back: Neck supple. Skin: General: Skin is warm. Neurological: General: No focal deficit present. Mental Status: She is alert. Lab/Radiology/Diagnostic Review: Lab Results Component Value Date WBC 15.1 (H) 07/21/2021 HGB 11.7 (L) 07/21/2021 HCT 36.5 07/21/2021 LABPLAT 356 07/21/2021 CHOL 160 02/08/2017 TRIG 66 02/08/2017 HDL 57 02/08/2017 ALT 14 07/21/2021 AST 17 07/21/2021 SODIUM 138 07/21/2021 POTASSIUM 3.4 07/21/2021 CHLORIDE 104 07/21/2021 CREATININE 0.40 (L) 07/21/2021 BUNSER 11 07/21/2021 CO2 22 07/21/2021 TSH 0.64 03/04/2021 INR 1.2 03/12/2020 HGBA1C 6.7 (H) 04/28/2021 A/P: Principal Problem: Diabetic ketoacidosis without coma associated with type 1 diabetes mellitus (CMS/HCC) ([facility]) REALTY LOAN SPECIALIST: Nonfocal history of depression Cardiac: Hemodynamically stable Pulm: No acute issues GI/Nutrition: GI prophylaxis advance diet the insulin infusion to transition to subcutaneous Renal: Stable Heme: DVT precautions ID: No acute issues Critical Care Time: I have spent 65 minutes in full attendance with this critically ill patient making frequent reassessments and decisions regarding this patient's complex medical care. Critical care time was exclusive of separately billable procedures, treating other patients and teaching time. Dominic Camara MD * Lior Melendez RN - 07/21/2021 3:11 PM CDT ALEXANDR Initial Assessment Interview Note Information Obtained From: Patient (07/21/21 0164) Admission Source: ED Impression: nausea, vomiting, diarrhea Plan Includes: Insulin Drip, evaluation Primary Source of Transportation: self Health Insurance Coverage: [employer] Prescription Coverage: yes Pharmacy: [facility] Primary Care Provider: Deena, Physician Prior to Admission: Primary Caregiver: Self Support System: Spouse/Significant Other, Children Support system contact info (name, phone, availablity): sally link-significant other Home Care Services: No Durable Medical Equipment: None Living Arrangements: Spouse/significant other Type of Residence: Apartment Steps in home? : Yes, Outside of home (07/21/21 1509) Potential discharge needs include: Dialysis: no Behavioral Health Services: Behavioral Health Services: No (07/21/21 1509) Patient expects to be Discharged to: Private residence, (07/21/21 1509) Additional Information: Discharge plan discussed with patient. She lives in an apartment with her significant other and daughter. She is independent with all ADLs and does not have any home equipment. She drives herself and currently does not work. Plan is to return back home at discharge, her boyfriend will pick her up at discharge. Will continue to follow. Patient's Identified Problem/Goal Problem: Ensure acute medical needs are met and that patient has a safe discharge plan. Goal: Secure a discharge plan that patient/family are agreeable with and ensure patient has continuum of care. Case management will follow for discharge planning and send referrals as needed. Lior Melendez RN * Lucinda Woodward, RD - 07/21/2021 2:43 PM CDT Nutrition Assessment Reason for Assessment: Screened at Nutrition Risk and Initial Nutrition Assessment Encounter Date: 07/21/21 2:47 PM Nutrition Assessment and Plan: Patient is a 26 y.o. female. Admit Dx: DIABETIC KETOACIDOSIS WITHOUT COMA ASSOCIATED WITH TYPE 1 DIABETES MELLITUS. Admitted on 07/20/2021, current LOS is 1 days. Adult Malnutrition Scoring Tool (MST) Have You Recently Lost Weight Without Trying?: No Have you been eating poorly because of a decreased appetite?: Yes Malnutrition Screening Tool (MST) Score: 1 Current diet order: Adult Diet Restricted; Consistent Carbohydrate Pt intake is inadequate. PO intakes: 0 ASSESSMENT:Per pt's nurse, Coleman RN, pt dry heaving and if not dry heaving pt has been sleeping. Pt refusing to eat d/t nausea and dry heaving. Nutrition Diagnosis 1: Food and nutrition-related knowledge deficit Related to: Chronic illness/injury, Nausea, Vomiting Evidenced by: Physical finding, PO under 50% Interventions: [place] diet preferences within the limits of nutrition care order, Initial assessment, Meals and snacks Monitoring and Evaluation: Blood glucoses, Discharge plans, Diet-related questions, Labs, PO intake ?? Goals: Adequate nutrition to meet estimated needs by next assessment Recommendations: Follow up for education needs Wt Readings from Last 10 Encounters: 07/20/21 68.9 kg (151 lb 14.4 oz) 04/28/21 76.5 kg (168 lb 11.2 oz) 03/26/21 64.1 kg (141 lb 5 oz) 03/05/21 66 kg (145 lb 8.1 oz) 11/16/20 73.5 kg (162 lb) 11/17/20 73.5 kg (162 lb 0.6 oz) 03/12/20 72.6 kg (160 lb) 03/07/20 73.9 kg (163 lb) 12/01/19 75.9 kg (167 lb 5.3 oz) 06/16/19 61 kg (134 lb 7.7 oz) Estimated needs: ?? Total Kcal/kg Estimated Needs : 1791.4 based on Kcal/k. Type of Weight Used for Estimated Kcals: Current ?? [facility] Total Energy Needs: 1782.3 kcal using Activity Factor: 1.3 ?? [facility] Total Energy Needs + Fever Factor: 1782.3 ?? Total Protein Estimated Needs (gm): 55.12 Protein Needs Based on g/k.8 Type of Weight Used for Estimated Protein : Current. ?? Total Fluid Estimated Needs: 1791.4 Fluid Needs Based on : 1 ml/kcal. Objective Anthropometrics Weight: 68.9 kg (151 lb 14.4 oz) Admission Weight : 68.9 kg Weight Change: 2.67 kg (5.89 lbs) IBW/kg (Calculated) : 47.6 kg Height: 154.9 cm (5' 1 ) Weight in (lb) to have BMI = 25: 132 BMI (Calculated): 28.7 3 Day I/O Summary 07/19 1899 - 07/21 0559 In: 2786 [I.V.:1786] Out: 1100 [Urine:1100] Temp: (!) 35.9 ??C (96.7 ??F) Past Medical History: Diagnosis Date ??? Depression ??? Diabetes mellitus (HCC) T1DM ??? HX OTHER MEDICAL 2011 Diabetes mellitus, type 1 ??? Miscarriage Medications and Lab Review: Scheduled Meds: enoxaparin, 40 mg, subcutaneous, Daily-2100 famotidine, 20 mg, intravenous, Q12H BOB scopolamine, 1 patch, transdermal, Once Continuous Infusions: dextrose 5% and sodium chloride 0.45%, 125 mL/hr, Last Rate: 125 mL/hr (07/21/21 0737) insulin regular, 0-30 Units/hr, Last Rate: 1.7 Units/hr (07/21/21 1348) Sodium Date Value Ref Range Status 07/21/2021 138 135 - 145 mmol/L Final Potassium, pl Date Value Ref Range Status 07/21/2021 3.4 3.3 - 4.9 mmol/L Final BUN Date Value Ref Range Status 07/21/2021 11 8 - 25 mg/dL Final Creatinine Date Value Ref Range Status 07/21/2021 0.40 (L) 0.60 - 1.10 mg/dL Final Albumin Date Value Ref Range Status 07/21/2021 4.1 3.5 - 5.0 g/dL Final Calcium Date Value Ref Range Status 07/21/2021 8.7 8.5 - 10.3 mg/dL Final Lab Results Component Value Date HGBA1C 6.7 (H) 04/28/2021 POC Glucose: 115(07/21) Nursing Assessment: Bowel Sounds (All Quadrants): Active Teodoro Scale Score: 20 Skin Integrity: Intact Diet Instructions Continue to follow a Consistent [...] doctor for referral tooutpatient nutrition counseling. Call [facility]'s office at [phone] for questions about your diet. Additional resources available from the [place] [employer] can be found at [email or web address].[email or web address] Nutrition Follow-Up : 07/22/[address],LDN * Dominic Camara MD - 07/21/2021 8:54 AM CDT Progress Note Critical Care Subjective: Awake Chief complaint of hyperglycemia Interval History: 26-year-old female admitted with nausea dehydration diabetic ketoacidosis has diabetes mellitus depression medical noncompliance recurrent admissions treated with insulin infusion normal saline preload and infusion. Now transitioning to regular diabetic diet she still has significant nausea in need of additional scopolamine patch able to transition to subcutaneous insulin decrease IV fluids. Review of Systems All other systems reviewed and are negative. Medications: enoxaparin, 40 mg, subcutaneous, Daily-2100 famotidine, 20 mg, intravenous, Q12H BOB scopolamine, 1 patch, transdermal, Once Subjective: Vitals: 24hr Min/Max: Temp Min: 35.9 ??C (96.7 ??F) Max: 37.8 ??C (100.1 ??F) Pulse Min: 112 Max: 157 BP Min: 84/44 Max: 155/97 Resp Min: 10 Max: 22 SpO2 Min: 96 % Max: 100 % Date 07/20/21699 - 07/21/21 0607/21/21699 - 07/22/21 0659 Shift 2201-6274 4770-6203 24 Hour Total 0924-0857 6743-9535 24 Hour Total INTAKE I.V.(mL/kg) 514(7.5) 1272(18.5) 1786(25.9) 633(9.2) 633(9.2) IV Piggyback 1000 1000 Shift Total(mL/kg) 1514(22) 1272(18.5) 2786(40.4) 633(9.2) 633(9.2) OUTPUT Urine(mL/kg/hr) 1100(1.3) 1100(0.7) Shift Total(mL/kg) 1100(16) 1100(16) NET 9579 455 2713 633 633 Weight (kg) 68.9 68.9 68.9 68.9 68.9 68.9 Physical Exam Vitals and nursing note reviewed. Constitutional: Appearance: She is obese. HENT: Head: Normocephalic. Nose: Nose normal. Mouth/Throat: Mouth: Mucous membranes are moist. Eyes: Extraocular Movements: Extraocular movements intact. Cardiovascular: Rate and Rhythm: Normal rate. Heart sounds: Normal heart sounds. Pulmonary: Effort: Pulmonary effort is normal. Abdominal: Palpations: Abdomen is soft. Musculoskeletal: General: No deformity. Cervical back: Neck supple. Skin: General: Skin is warm. Neurological: General: No focal deficit present. Mental Status: She is alert. Lab/Radiology/Diagnostic Review: Lab Results Component Value Date WBC 15.1 (H) 07/21/2021 HGB 11.7 (L) 07/21/2021 HCT 36.5 07/21/2021 LABPLAT 356 07/21/2021 CHOL 160 02/08/2017 TRIG 66 02/08/2017 HDL 57 02/08/2017 ALT 14 07/21/2021 AST 17 07/21/2021 SODIUM 138 07/21/2021 POTASSIUM 3.4 07/21/2021 CHLORIDE 104 07/21/2021 CREATININE 0.40 (L) 07/21/2021 BUNSER 11 07/21/2021 CO2 22 07/21/2021 TSH 0.64 03/04/2021 INR 1.2 03/12/2020 HGBA1C 6.7 (H) 04/28/2021 A/P: Principal Problem: Diabetic ketoacidosis without coma associated with type 1 diabetes mellitus (CMS/HCC) (HCC) [employer] SPECIALIST: Awake nonfocal has significant depression noncompliance complaining of nausea Cardiac: Stable Pulm: No acute problems GI/Nutrition: GI prophylaxis advance diabetic diet persistent nausea add Tigan scopolamine patch Renal: Stable hydrated Heme: DVT precautions ID: No acute issues Critical Care Time: I have spent 70 minutes in full attendance with this critically ill patient making frequent reassessments and decisions regarding this patient's complex medical care. Critical care time was exclusive of separately billable procedures, treating other patients and teaching time. Dominic Camara MD documented in this encounter H&P Notes * Dominic Camara MD - 07/20/2021 3:31 PM CDT Consult Note Patient Name: Karina Menjivar Date of : 1995 Primary Physician: No, Physician Requesting Physician: Emergency department Admission Date: 07/20/2021 Length of Stay: 0 Chief Complaint Vomiting DKA Dehydration HPI Karina Menjivar is a 26 y.o. female seen in consultation for hyperglycemia diabetic ketoacidosis dehydration tachycardia. The patient is a 26-year-old female with recurrent admissions for diabetic ketoacidosis poor medical compliance with her medication regimen has history of diabetes mellitus depression cannabis use she was seen in the ER with nausea vomit tachycardia. Found to be in diabetic ketoacidosis was hydrated and preloaded with normal saline boluses transferred to ICU on an insulin drip transitioned to D5 half normal saline for sodium correction she is receiving Zofran with slow adjustment of the heart rate. Past Medical History Past Medical History: Diagnosis Date ??? Depression ??? Diabetes mellitus (HCC) T1DM ??? HX OTHER MEDICAL 2011 Diabetes mellitus, type 1 ??? Miscarriage Past Surgical History Past Surgical History: Procedure Laterality Date ??? SECTION, CLASSIC 2017 ??? TONSILLECTOMY Bilateral 2002 Medications Medications Prior to Admission Medication Sig Dispense Refill Last Dose ??? insulin glargine (LANTUS, BASAGLAR, SEMGLEE) 100 unit/mL (3 mL) pen for injection Inject 15 Units under the skin nightly ??? insulin lispro (HumaLOG) 100 unit/mL injection Inject under the skin 3 (three) times a day before meals Uses per sliding scale 1 unit per every 7-8 grams of carb max of 50 units per day ??? insulin syringe-needle U-100 0.3 mL 31 gauge x 5/16 syringe 1 Syringe ??? OneTouch Verio test strips strip USE 1 STRIP TO CHECK GLUCOSE 4 TIMES DAILY ??? TechLITE Insulin Syr Half Unit 0.3 mL 31 gauge x 5/16 syringe USE ONE NEW SYRINGE 4 TIMES Allergies No Known Allergies Family History Family History Problem Relation Age of Onset ??? Anemia Mother ??? Autism Brother Social History Social History Socioeconomic History ??? Marital status: Single Spouse name: Not on file ??? Number of children: Not on file ??? Years of education: Not on file ??? Highest education level: Not on file Occupational History ??? Not on file Tobacco Use ??? Smoking status: Never Smoker ??? Smokeless tobacco: Never Used Substance and Sexual Activity ??? Alcohol use: Not Currently ??? Drug use: Yes Types: Marijuana ??? Sexual activity: Yes Partners: Male Other Topics Concern ??? Not on file Social History Narrative ??? Not on file Social Determinants of Health Financial Resource Strain: Not on file Food Insecurity: Not on file Transportation Needs: Not on file Physical Activity: Not on file Stress: Not on file Social Connections: Not on file Intimate Partner Violence: Not on file Housing Stability: Not on file ROS Review of Systems All other systems reviewed and are negative. Objective Vitals: 07/20/21 1345 07/20/21 1400 07/20/21 1415 07/20/21 1430 BP: 123/66 136/69 121/67 117/60 Pulse: (!) 153 (!) 141 (!) 138 (!) 145 Resp: 19 20 21 14 Temp: SpO2: 99% 98% 99% 100% Weight: Height: Physical Exam Vitals and nursing note reviewed. Constitutional: Appearance: Normal appearance. HENT: Head: Normocephalic. Nose: Nose normal. Eyes: Extraocular Movements: Extraocular movements intact. Cardiovascular: Rate and Rhythm: Regular rhythm. Tachycardia present. Pulses: Normal pulses. Heart sounds: Normal heart sounds. Pulmonary: Effort: Pulmonary effort is normal. Breath sounds: Normal breath sounds. Abdominal: Palpations: Abdomen is soft. Musculoskeletal: General: No deformity. Cervical back: Neck supple. Skin: General: Skin is warm. Neurological: General: No focal deficit present. Diagnostics Recent Results (from the past 24 hour(s)) Comprehensive metabolic panel Collection Time: 07/20/21 12:35 PM Result Value Ref Range Sodium 142 135 - 145 mmol/L Potassium, pl 5.4 (H) 3.3 - 4.9 mmol/L Chloride 103 97 - 110 mmol/L CO2 12 (L) 22 - 32 mmol/L Anion gap 26 (H) 2 - 15 mmol/L BUN 19 8 - 25 mg/dL Creatinine 0.74 0.60 - 1.10 mg/dL Glucose 370 (H) 70 - 199 mg/dL Calcium 10.2 8.5 - 10.3 mg/dL Bilirubin, total 0.7 0.1 - 1.2 mg/dL Protein, pl 8.1 6.5 - 8.5 g/dL Albumin 4.6 3.5 - 5.0 g/dL Alk phos 110 40 - 130 Units/L ALT 20 7 - 45 Units/L AST 22 10 - 45 Units/L CBC with auto differential Collection Time: 07/20/21 12:35 PM Result Value Ref Range WBC 13.9 (H) 3.8 - 9.9 K/cumm Hgb 14.1 11.9 - 15.5 g/dL Hct 45.2 35.6 - 45.5 % Plt 398 150 - 400 K/cumm MPV 9.3 9.1 - 12.3 fL RBC 5.48 (H) 3.90 - 5.20 M/cumm MCV 82.5 81.3 - 96.4 fL MCH 25.7 (L) 27.1 - 33.3 pg MCHC 31.2 (L) 32.3 - 35.7 g/dL RDW CV 17.0 (H) 11.1 - 14.9 % RDW SD 50.5 (H) 35.7 - 48.1 fL NRBC abs 0.00 0.00 - 0.01 K/cumm Sepsis Lactate w/ Reflex Collection Time: 07/20/21 12:35 PM Result Value Ref Range Sepsis Lactate 3.2 (H) 0.7 - 2.0 mmol/L Lipase Collection Time: 07/20/21 12:35 PM Result Value Ref Range Lipase 7 (L) 10 - 99 Units/L hCG, blood, quantitative Collection Time: 07/20/21 12:35 PM Result Value Ref Range hCG, quant <5.0 0.0 - 5.0 IUnits/L Differential, auto Collection Time: 07/20/21 12:35 PM Result Value Ref Range Neutrophil abs 11.9 (H) 1.7 - 6.5 K/cumm Imm gran abs 0.1 0.0 - 0.1 K/cumm Lymphocyte abs 1.0 0.8 - 3.3 K/cumm Monocyte abs 0.9 (H) 0.2 - 0.8 K/cumm Eosinophil abs 0.0 0.0 - 0.5 K/cumm Basophil abs 0.0 0.0 - 0.1 K/cumm Neutrophil pct 85.3 % Imm gran pct 0.5 % Lymphocyte pct 7.5 % Monocyte pct 6.6 % Eosinophil pct 0.0 % Basophil pct 0.1 % eGFR Collection Time: 07/20/21 12:35 PM Result Value Ref Range eGFR 115 mL/min/1.73 m2 POCT glucose Collection Time: 07/20/21 2:23 PM Result Value Ref Range Glucose, POC 183 (H) 71 - 98 mg/dL No results found. Results for orders placed or performed during the hospital encounter of 03/29/18 ECG 12 lead Result Value Ref Range Patient age 22 years Interpretation Text SINUS TACHYCARDIABORDERLINE RIGHT AXIS DEVIATIONABNORMAL RHYTHM ECGPREVIOUS TRACIN03/30/2018 02.13 Ventricular Rate EKG/Min 108 /min P Wave Duration 109 ms QRS-Interval (MSEC) 77 ms NC-Interval (MSEC) 130 ms QT Interval 316 ms QTc 400 ms QTC Interval ms P Sevier 72 deg QRS Sevier 93 deg T Sevier 44 deg Results for orders placed during the hospital encounter of 11/26/19 Transthoracic Echo Complete W Doppler/CF Narrative [address] [address] Echocardiogram Report Patient Name: KARINA MENJIVAR : 1995 Study Date: 11/29/2019 10:15:58 AM Gender: F Tech: Location: [place] [address] Ref.Provider: ROBERTO CARLOS HELLER Height(Cm): 163 BSA: 1.81 Weight(Kg): 72.6 Quality: Adequate Order Provider: ROBERTO CARLOS HELLER Procedures: Echocardiographic Report: Transthoracic echocardiogram with complete 2D, M-Mode, and color Doppler examination. Indications: Tachycardia. Measurements: 2D/M Mode Doppler Measurement Value Normal Range Measurement Value Normal Range EF Teich MM 64.9 [ 55.0 - 70.0 ] percent MARIA DEL ROSARIO Vmax 2.61 [ 2.00 - 4.00 ] cm2 LVIDd MM 3.50 [ 3.90 - 5.30 ] cm AV Mean PG 4 [ 2 - 4 ] mmHg LVIDs MM 2.28 [ 2.30 - 3.90 ] cm AV Peak Denys 1.29 [ 1.00 - 1.70 ] m/s LVPWd MM 1.07 [ 0.60 - 1.00 ] cm AV VTI 18.56 cm IVSd MM 0.93 [ 0.60 - 0.90 ] cm LVOT Diam 2.06 [ 1.70 - 2.10 ] cm LA Dimension 2D 2.23 [ 2.70 - 3.80 ] cm LVOT Peak Denys 1.01 [ 0.70 - 1.10 ] m/s AoR Diam MM 2.88 [ 2.60 - 3.70 ] cm LVOT VTI 14.86 [ 20.00 - 30.00 ] cm ACS MM 1.55 cm MV E Peak Denys 0.71 [ 0.60 - 1.30 ] m/s MV A Peak Denys 0.83 [ 1.00 - 1.20 ] m/s MV Mean PG 2 [ <= 5 ] mmHg MV PHT 55 [ 20 - 100 ] msec MVA 4.00 MV Decel Time 188 [ 104 - 258 ] msec PV Peak Denys 0.86 [ 0.40 - 0.80 ] m/s TR Peak Denys 2.19 [ 1.00 - 2.80 ] m/s TR Peak PG 19 mmHg RVSP 29.00 [ 10.00 - 36.00 ] mmHg E' 0.07 E/E' 10.74 PA Pressure 19.00 [ 10.00 - 36.00 ] mmHg Findings: Atrial Septum: Normal atrial septum. Left Ventricle: Normal left ventricular systolic function with no focal wall motion abnormalities. Normal left ventricular size. Normal left ventricular wall thickness. Ejection fraction is visually estimated at 67 %. Left Atrium: The left atrium is normal in size. Right Ventricle: Normal right ventricular size. Normal right ventricular systolic function. Right Atrium: The right atrium is normal in size. Aortic Valve: Aortic valve not well visualized. No evidence of hemodynamically significant aortic stenosis by Doppler. No aortic regurgitation. Mitral Valve: No mitral valve regurgitation is seen. Pulmonic Valve: Normal structure of the pulmonic valve. Tricuspid Valve: Normal structure of the tricuspid valve. Tricuspid valve not well visualized. No evidence of tricuspid regurgitation. Pericardium: Pericardium not well visualized. Aorta: Sinus of Valsalva is normal. IVC: The IVC is not well visualized. Pulmonary Artery: Normal pulmonary artery size. Conclusions: Normal left ventricular systolic function with no focal wall motion abnormalities. Normal left ventricular size. Normal left ventricular wall thickness. Ejection fraction is visually estimated at 67 %. Normal structure of the tricuspid valve. Tricuspid valve not well visualized. No evidence of tricuspid regurgitation. No significant valvular disease identified. Electronically Signed By: Dr Mann Gonzalez 2019-11-29 11:03:36 CDT Problem List Principal Problem: Diabetic ketoacidosis without coma associated with type 1 diabetes mellitus ([facility]) ([facility]) Assessment/Plan 26 y.o. female seen in consultation for diabetic ketoacidosis tachycardia dehydration. PLAN: ICU admission observation GI protection prophylaxis Glycemia control with insulin Insulin infusion GlucoStabilizer Nausea control Zofran Compazine Preload with crystalloid Normal saline infusion Transition to D5 half normal saline Thyroid adrenal assessment DVT precautions Repeat labs Thanks for allowing us to see this patient we will follow in the ICU as needed. Critical Care Time: I have spent 65 minutes in full attendance with this critically ill patient making frequent reassessments and decisions regarding this patient's complex medical care. Critical care time was exclusive of separately billable procedures, treating other patients and teaching time. Dominic Camara MD 07/20/2021 3:31 PM documented in this encounter Nursing Notes * Wendy Amato RN - 07/22/2021 12:37 PM CDT Patient not laying facing the window. IVF continue. Lunch tray at bedside. Patient refusing to evenlift the cleve. Talked again about potassium level and needing to eat or take the medication to increase potassium level. Patient ignoring staff unless asked direct questions. Patient continues to refused to eat or take PO medications. * Wendy Amato RN - 07/22/2021 11:42 AM CDT Patient in bed facing door, IVF of D5 1/2NS @ 50ml per Hour into a 22 to right wrist. Patient pale with flushed cheeks, very flat affect, may or may not answer questions. Talked about potassium leveland what Potassium does in the body. Patient continue to refuse to eat, drink or take pills.. Doctor notified, face to face, not low enough for IV potassium at this time. Will continue to encourage PO intake * Sherif Blanco RN - 07/22/2021 11:18 AM CDT Pt is transferred to room 3601. Pt's mother is notified of transfer and room number * Sherif Blanco RN - 07/22/2021 11:00 AM CDT Pt condition report called to Alka HERNANDEZ. documented in this encounter ED Notes * Tavo Ochoa MD - 07/20/2021 12:16 PM CDT Chief Complaint Patient presents with ??? Hyperglycemia ??? Vomiting HPI 07/20/2021 1:29 PM Karina Menjivar is a 26 y.o. female non-smoker with a h/o DM type I, DKA with coma, marijuana abuse,and medication non-compliance who presents to the ED with hyperglycemia today. Pt reports associated nausea, vomiting, and diarrhea since yesterday, but denies chest pain, SOB, and abdominal pain. She reports a h/o DM for which she injects insulin. Pt reports compliance with her insulin lately, butnotes that her blood glucose was 467 this morning when she checked it. No alleviating or exacerbating factors mentioned. No other complaints at this time. HPI Past Medical History: Diagnosis Date ??? Depression [...] Currently ??? Drug use: Yes Types: Marijuana Review of Systems Review of Systems Constitutional: Negative for chills and fever. HENT: Negative for ear pain and sore throat. Eyes: Negative for pain and visual disturbance. Respiratory: Negative for cough and shortness of breath. Cardiovascular: Negative for chest pain and palpitations. Gastrointestinal: Positive for diarrhea, nausea and vomiting. Negative for abdominal pain. Endocrine: +hyperglycemia Genitourinary: Negative for dysuria and hematuria. Musculoskeletal: Negative for arthralgias and back pain. Skin: Negative for color change and rash. Neurological: Negative for seizures and syncope. All other systems reviewed and are negative. Physical Exam ED Triage Vitals [07/20/21 1201] Temp Pulse Resp BP SpO2 37.1 ??C (98.7 ??F) (!) 157 18 123/71 99 % Temp src Heart Rate Source Patient Position BP Location FiO2 (%) -- -- -- -- -- Physical Exam Vitals and nursing note reviewed. Constitutional: General: She is in acute distress (mild, secondary to nausea). Appearance: She is well-developed. HENT: Head: Normocephalic and atraumatic. Eyes: Conjunctiva/sclera: Conjunctivae normal. Cardiovascular: Rate and Rhythm: Regular rhythm. Tachycardia present. Heart sounds: Normal heart sounds. No murmur [...] person, place, and time. Procedures Labs Reviewed COMPREHENSIVE METABOLIC PANEL - Abnormal Result Value Sodium 142 Potassium, pl 5.4 (*) Chloride 103 CO2 12 (*) Anion gap 26 (*) BUN 19 Creatinine 0.74 Glucose 370 (*) Calcium 10.2 Bilirubin, total 0.7 Protein, pl 8.1 Albumin 4.6 Alk phos 110 ALT 20 AST 22 CBC WITH AUTO DIFFERENTIAL - Abnormal WBC 13.9 (*) Hgb 14.1 Hct 45.2 Plt 398 MPV 9.3 RBC 5.48 (*) MCV 82.5 MCH 25.7 (*) MCHC 31.2 (*) RDW CV 17.0 (*) RDW SD 50.5 (*) NRBC abs 0.00 SEPSIS LACTATE WITH REFLEX - Abnormal Sepsis Lactate 3.2 (*) LIPASE - Abnormal Lipase 7 (*) DIFFERENTIAL AUTO - Abnormal Neutrophil abs 11.9 (*) Imm gran abs 0.1 Lymphocyte abs 1.0 Monocyte abs 0.9 (*) Eosinophil abs 0.0 Basophil abs 0.0 Neutrophil pct 85.3 Imm gran pct 0.5 Lymphocyte pct 7.5 Monocyte pct 6.6 Eosinophil pct 0.0 Basophil pct 0.1 URINALYSIS AND REFLEX TO MICROSCOPIC AND CULTURE HCG, BLOOD, QUANTITATIVE hCG, quant <5.0 EGFR eGFR 115 DRUGS OF ABUSE SCREEN, URINE WITHOUT CONFIRMATION SEPSIS LACTATE WITH REFLEX No orders to display BP 130/77 Pulse (!) 144 Temp 37.1 ??C (98.7 ??F) Resp 15 Ht 154.9 cm (5' 1 ) Wt 66.2 kg (146 lb) LMP 06/24/2021 SpO2 96% BMI 27.59 kg/m?? MDM ED Course as of 07/20/211328 Time: 07/20 1326 Comment: Discussed case with Dr. Camara, Critical Care, who accepts pt for admission. By: Magdalena Evans Final diagnoses: Diabetic ketoacidosis without coma associated with type 1 diabetes mellitus ([facility]/HCC) (HCC) This note is prepared by Magdalena Evans, acting as a scribe for Tavo Ochoa MD. I electronically signed this note at 1:29 PM on 07/20/2021. I, Tavo Ochoa MD, have personally performed the services described in the documentation, reviewed and edited the documentation which was dictated to the scribe in my presence, and it accurately records my words and actions. Tavo Ochoa MD 07/20/21 1329 * Key Siegel RN - 07/20/2021 12:00 PM CDT Patient arrives to the Ed with vomiting and diarrhea since yesterday, patient is a type 1 diabetic and states her BG was 467 this morning. documented in this encounter Miscellaneous Notes * Plan of Care - Michelle Reeves RN - 07/23/2021 3:56 PM CDT Goals: Clinical Goals for the Shift: improved and stable blood glucose levels,decreased nausea, improved oral intake Summary: Pt is alert and oriented, up independent in the room. Pt ate 50% of her lunch, BS was 166 at lunch. Pt took two showers today. IV was leaking and pt had limited access for new site. Pt beingdischarged to home this evening. Pt to have repeat lab work tomorrow for follow up with potassium level. * Plan of Care - Roselyn Paniagua RN - 07/23/2021 3:40 AM CDT Goals: Clinical Goals for the Shift: VSS. No injuries/falls. Improvement of fluid/nutrition intake. Monitor pain, nausea, and glucose levels. Summary: VSS. Pt has been resting in bed tonight with no complaints of pain. Pt has been nauseous but refuses PRN meds. Pt refuses to eat or drink, but has been tolerating ice chips. D5 1/2 NS infusing at 50 mL/hr. Pt refused lovenox injection but allowed SCD's to be placed. No falls/injuries- pt told to call for assistance when ambulating since SCD's are in place, pt verbalized understanding andhas used call light appropriately. Pt's blood glucose has remained in the 200's tonight, Lantus andinsulin lispro were given. * Plan of Care - Wendy Amato RN - 07/22/2021 2:56 PM CDT Problem: Health Behavior: Goal: Understanding of discharge needs will improve Outcome: Progressing Problem: Activity: Goal: Will verbalize the importance of balancing activity with adequate rest periods Outcome: Progressing Problem: Cardiac: Goal: Ability to maintain an adequate cardiac output will improve Outcome: Progressing Problem: Lack of Knowledge: Goal: Ability to describe self-care measures that may prevent or decrease complications will improve Outcome: Not Progressing Goal: Knowledge of disease or condition will improve Outcome: Not Progressing Goal: Knowledge of the prescribed therapeutic regimen will improve Description: Use of Medical Equipment and the Need for Diabetes Identification [facility] Outcome: Not Progressing Goal: Ability to manage health-related needs will improve Outcome: Not Progressing Goal: Ability to identify and alter actions that are detrimental to health will improve Outcome: Not Progressing Goal: Knowledge of prevention and discharge planning will improve Outcome: Not Progressing Problem: Fluid Volume: Goal: Ability to achieve a balanced intake and output will improve Outcome: Not Progressing Goal: Will maintain adequate fluid volume Outcome: Not Progressing Goal: Signs and symptoms of dehydration will decrease Outcome: Progressing Problem: Metabolic: Goal: Ability to maintain appropriate glucose levels will improve Outcome: Progressing Goal: Diagnostic test results will improve Outcome: Progressing Goal: Complications related to the disease process, condition or treatment will be avoided or minimized Outcome: Progressing Problem: Fluid Volume: Goal: Ability to achieve a balanced intake and output will improve Outcome: Not Progressing Goal: Will maintain adequate fluid volume Outcome: Not Progressing Goal: Signs and symptoms of dehydration will decrease Outcome: Progressing Problem: Metabolic: Goal: Ability to maintain appropriate glucose levels will improve Outcome: Progressing Goal: Diagnostic test results will improve Outcome: Progressing Goal: Complications related to the disease process, condition or treatment will be avoided or minimized Outcome: Progressing Problem: Nutritional: Goal: Maintenance of adequate nutrition will improve Outcome: Not Progressing Goal: Maintenance of adequate weight for body size and type will improve Outcome: Progressing Problem: Physical Regulation: Goal: Will regain or maintain usual level of consciousness Outcome: Progressing Goal: Will not experience complications related to bowel motility Outcome: Progressing Goal: Pain level will decrease Outcome: Progressing Goal: Will remain free from infection Outcome: Progressing Problem: Respiratory: Goal: Respiratory status will improve Outcome: Progressing Goal: Ability to maintain adequate ventilation will improve Outcome: Progressing Goal: Peripheral tissue perfusion will improve Outcome: Progressing Problem: Urinary Elimination: Goal: Ability to achieve and maintain adequate renal perfusion and functioning will improve Outcome: Progressing Problem: Lack of Knowledge: Goal: Ability to state ways to decrease the risk of falls will improve Outcome: Progressing Problem: Safety: Goal: Will remain free from falls Outcome: Progressing Goal: Will remain free from injury from falls Outcome: Progressing Goal: Will remain free from falls and injury in home environment Outcome: Progressing Goals: Clinical Goals for the Shift: no injury or fall, glucose levels to stabilize and within parameters as much as able, nutritional intake to improve Summary: no injuries this shift, continues to refuse food, fluids and medications, discussed the risk with low potassium level. * Plan of Care - Minerva Shankar RN - 07/22/2021 2:56 AM CDT Goals: Clinical Goals for the Shift: safety; stable vs; stabilize glucose; titrate insulin gtt per glucosestabilizer; increase oral intake Summary: Patient has remained on the insulin gtt throughout shift. Gtt has been titrated in accordance with the glucose stabilizer program. Patient's blood sugars have been adequate during shift and have required minimal titration. Patient has not eaten anything during shift, despite encouragement.Patient has been dry heaving and having nausea; patient refuses antiemetics when offered. Problem: Health Behavior: Goal: Understanding of discharge needs will improve Outcome: Progressing Problem: Activity: Goal: Will verbalize the importance of balancing activity with adequate rest periods Outcome: Progressing Problem: Cardiac: Goal: Ability to maintain an adequate cardiac output will improve Outcome: Progressing Problem: Lack of Knowledge: Goal: Ability to describe self-care measures that may prevent or decrease complications will improve Outcome: Progressing Goal: Knowledge of disease or condition will improve Outcome: Progressing Goal: Knowledge of the prescribed therapeutic regimen will improve Description: Use of Medical Equipment and the Need for Diabetes Identification Jewelry Outcome: Progressing Goal: Ability to manage health-related needs will improve Outcome: Progressing Goal: Ability to identify and alter actions that are detrimental to health will improve Outcome: Progressing Goal: Knowledge of prevention and discharge planning will improve Outcome: Progressing Problem: Fluid Volume: Goal: Ability to achieve a balanced intake and output will improve Outcome: Progressing Goal: Will maintain adequate fluid volume Outcome: Progressing Goal: Signs and symptoms of dehydration will decrease Outcome: Progressing Problem: Metabolic: Goal: Ability to maintain appropriate glucose levels will improve Outcome: Progressing Goal: Diagnostic test results will improve Outcome: Progressing Goal: Complications related to the disease process, condition or treatment will be avoided or minimized Outcome: Progressing Problem: Nutritional: Goal: Maintenance of adequate nutrition will improve Outcome: Progressing Goal: Maintenance of adequate weight for body size and type will improve Outcome: Progressing Problem: Physical Regulation: Goal: Will regain or maintain usual level of consciousness Outcome: Progressing Goal: Will not experience complications related to bowel motility Outcome: Progressing Goal: Pain level will decrease Outcome: Progressing Goal: Will remain free from infection Outcome: Progressing Problem: Respiratory: Goal: Respiratory status will improve Outcome: Progressing Goal: Ability to maintain adequate ventilation will improve Outcome: Progressing Goal: Peripheral tissue perfusion will improve Outcome: Progressing Problem: Urinary Elimination: Goal: Ability to achieve and maintain adequate renal perfusion and functioning will improve Outcome: Progressing Problem: Lack of Knowledge: Goal: Ability to state ways to decrease the risk of falls will improve Outcome: Progressing Problem: Safety: Goal: Will remain free from falls Outcome: Progressing Goal: Will remain free from injury from falls Outcome: Progressing Goal: Will remain free from falls and injury in home environment Outcome: Progressing * Plan of Care - Coleman Schilling RN - 07/21/2021 6:18 PM CDT Problem: Activity: Goal: Will verbalize the importance of balancing activity with adequate rest periods Outcome: Progressing Problem: Cardiac: Goal: Ability to maintain an adequate cardiac output will improve Outcome: Progressing Problem: Lack of Knowledge: Goal: Ability to describe self-care measures that may prevent or decrease complications will improve Outcome: Progressing Goal: Knowledge of disease or condition will improve Outcome: Progressing Goal: Knowledge of the prescribed therapeutic regimen will improve Description: Use of Medical Equipment and the [facility] Outcome: Progressing Goal: Ability to manage health-related needs will improve Outcome: Progressing Problem: Fluid Volume: Goal: Ability to achieve a balanced intake and output will improve Outcome: Progressing Goal: Will maintain adequate fluid volume Outcome: Progressing Goal: Signs and symptoms of dehydration will decrease Outcome: Progressing Problem: Metabolic: Goal: Ability to maintain appropriate glucose levels will improve Outcome: Progressing Goal: Diagnostic test results will improve Outcome: Progressing Goal: Complications related to the disease process, condition or treatment will be avoided or minimized Outcome: Progressing Problem: Physical Regulation: Goal: Will regain or maintain usual level of consciousness Outcome: Progressing Goal: Will not experience complications related to bowel motility Outcome: Progressing Goal: Pain level will decrease Outcome: Progressing Goal: Will remain free from infection Outcome: Progressing Problem: Respiratory: Goal: Respiratory status will improve Outcome: Progressing Goal: Ability to maintain adequate ventilation will improve Outcome: Progressing Goal: Peripheral tissue perfusion will improve Outcome: Progressing Problem: Urinary Elimination: Goal: Ability to achieve and maintain adequate renal perfusion and functioning will improve Outcome: Progressing Problem: Lack of Knowledge: Goal: Ability to state ways to decrease the risk of falls will improve Outcome: Progressing Problem: Safety: Goal: Will remain free from falls Outcome: Progressing Goal: Will remain free from injury from falls Outcome: Progressing Goal: Will remain free from falls and injury in home environment Outcome: Progressing Goals: Clinical Goals for the Shift: stable vs, decrease blood sugar, close anion gap, improvement in labs Summary: Patient continues on insulin drip this shift. Patient states she cannot eat. Frequent encouragement of po intake given. Hourly blood glucose continues. No pain noted. VSS WNL. * Plan of Care - Dorian Fuller RN - 07/21/2021 4:57 AM CDT Goals: Clinical Goals for the Shift: stable vs, decrease blood sugar, close anion gap, improvement in labs Summary: VS remain stable with patient tachycardic and hypertensive at times, labs are much improved with blood sugar in the low 100's and anion gap closed, patient nauseous at times but no emesis this shift, comfort and safety maintianed Problem: Health Behavior: Goal: Understanding of discharge needs will improve Outcome: Progressing Problem: Activity: Goal: Will verbalize the importance of balancing activity with adequate rest periods Outcome: Not Progressing Problem: Cardiac: Goal: Ability to maintain an adequate cardiac output will improve Outcome: Progressing Problem: Lack of Knowledge: Goal: Ability to describe self-care measures that may prevent or decrease complications will improve Outcome: Not Progressing Goal: Knowledge of disease or condition will improve Outcome: Progressing Goal: Knowledge of the prescribed therapeutic regimen will improve Description: Use of Medical Equipment and the Need for Diabetes Identification [facility] Outcome: Progressing Goal: Ability to manage health-related needs will improve Outcome: Not Progressing Goal: Ability to identify and alter actions that are detrimental to health will improve Outcome: Not Progressing Goal: Knowledge of prevention and discharge planning will improve Outcome: Progressing Problem: Fluid Volume: Goal: Ability to achieve a balanced intake and output will improve Outcome: Progressing Goal: Will maintain adequate fluid volume Outcome: Progressing Goal: Signs and symptoms of dehydration will decrease Outcome: Progressing Problem: Metabolic: Goal: Ability to maintain appropriate glucose levels will improve Outcome: Progressing Goal: Diagnostic test results will improve Outcome: Progressing Goal: Complications related to the disease process, condition or treatment will be avoided or minimized Outcome: Progressing Problem: Nutritional: Goal: Maintenance of adequate nutrition will improve Outcome: Not Progressing Goal: Maintenance of adequate weight for body size and type will improve Outcome: Progressing Problem: Physical Regulation: Goal: Will regain or maintain usual level of consciousness Outcome: Progressing Goal: Will not experience complications related to bowel motility Outcome: Progressing Goal: Pain level will decrease Outcome: Progressing Goal: Will remain free from infection Outcome: Progressing Problem: Respiratory: Goal: Respiratory status will improve Outcome: Progressing Goal: Ability to maintain adequate ventilation will improve Outcome: Progressing Goal: Peripheral tissue perfusion will improve Outcome: Progressing Problem: Urinary Elimination: Goal: Ability to achieve and maintain adequate renal perfusion and functioning will improve Outcome: Progressing Problem: Lack of Knowledge: Goal: Ability to state ways to decrease the risk of falls will improve Outcome: Progressing Problem: Safety: Goal: Will remain free from falls Outcome: Progressing Goal: Will remain free from injury from falls Outcome: Progressing Goal: Will remain free from falls and injury in home environment Outcome: Not Progressing * Plan of Sandhya - Marina Del Valle RN - 07/20/2021 5:42 PM CDT Goals: Clinical Goals for the Shift: decrease heart rate. Summary: heart rate is decreasing, however remains ST. IVF infusing without diff. Glucose stabulizer continues. Will obtain BMP and Lac as ordered. No void as of this time. Safety and skin integrity maintained. Problem: Health Behavior: Goal: Understanding of discharge needs will improve 07/20/20211741 by Marina Del Valle RN Outcome: Progressing 07/20/20211741 by Marina Del Valle RN Outcome: Progressing Problem: Activity: Goal: Will verbalize the importance of balancing activity with adequate rest periods 07/20/20211741 by Marina Del Valle RN Outcome: Progressing 07/20/20211741 by Marina Del Valle RN Outcome: Progressing Problem: Lack of Knowledge: Goal: Knowledge of disease or condition will improve 07/20/20211741 by Marina Del Valle RN Outcome: Progressing 07/20/20211741 by Marina Del Valle RN Outcome: Progressing Goal: Knowledge of the prescribed therapeutic regimen will improve Description: Use of Medical Equipment and the Need for Diabetes Identification Jewelry 07/20/20211741 by Marina Del Valle RN Outcome: Progressing 07/20/20211741 by Marina Del Valle RN Outcome: Progressing Goal: Ability to manage health-related needs will improve 07/20/20211741 by Marina Del Valle RN Outcome: Progressing 07/20/20211741 by Marina Del Valle RN Outcome: Progressing Goal: Ability to identify and alter actions that are detrimental to health will improve 07/20/20211741 by Marina Del Valle RN Outcome: Progressing 07/20/20211741 by Marina Del Valle RN Outcome: Progressing Goal: Knowledge of prevention and discharge planning will improve 07/20/20211741 by Marina Del Valle RN Outcome: Progressing 07/20/20211741 by Marina Del Valle RN Outcome: Progressing Problem: Fluid Volume: Goal: Ability to achieve a balanced intake and output will improve 07/20/20211741 by Marina Del Valle RN Outcome: Progressing 07/20/20211741 by Marina Del Valle RN Outcome: Progressing Goal: Will maintain adequate fluid volume 07/20/2021 174 by Marina Del Valle RN Outcome: Progressing 07/20/2021 174 by Marina Del Valle RN Outcome: Progressing Goal: Signs and symptoms of dehydration will decrease 07/20/2021 174 by Marina Del Valle RN Outcome: Progressing 07/20/2021 174 by Marina Del Valle RN Outcome: Progressing Problem: Metabolic: Goal: Ability to maintain appropriate glucose levels will improve 07/20/2021 174 by Marina Del Valle RN Outcome: Progressing 07/20/2021 174 by Marina Del Valle RN Outcome: Progressing Goal: Diagnostic test results will improve 07/20/20211741 by Marina Del Valle RN Outcome: Progressing 07/20/2021 174 by Marina Del Valle RN Outcome: Progressing Goal: Complications related to the disease process, condition or treatment will be avoided or minimized 07/20/20211741 by Marina Del Valle RN Outcome: Progressing 07/20/2021 174 by Marina Del Valle RN Outcome: Progressing Problem: Nutritional: Goal: Maintenance of adequate nutrition will improve 07/20/20211741 by Marina Del Valle RN Outcome: Progressing 07/20/2021 174 by Marina Del Valle RN Outcome: Progressing Goal: Maintenance of adequate weight for body size and type will improve 07/20/2021 174 by Marina Del Valle RN Outcome: Progressing 07/20/2021 174 by Marina Del Valle RN Outcome: Progressing Problem: Physical Regulation: Goal: Will regain or maintain usual level of consciousness 07/20/2021 174 by Marina Del Valle RN Outcome: Progressing 07/20/2021 174 by Marina eDl Valle RN Outcome: Progressing Goal: Will not experience complications related to bowel motility 07/20/2021 174 by Marina Del Valle RN Outcome: Progressing 07/20/2021 174 by Marina Del Valle RN Outcome: Progressing Goal: Pain level will decrease 07/20/2021 174 by Marina Del Valle RN Outcome: Progressing 07/20/2021 174 by Marina Del Valle, MARY Outcome: Progressing Goal: Will remain free from infection 07/20/2021 174 by Marina Del Valle RN Outcome: Progressing 07/20/2021 174 by Marina Del Valle RN Outcome: Progressing Problem: Respiratory: Goal: Respiratory status will improve 07/20/2021 174 by Marina Del Valle, MARY Outcome: Progressing 07/20/2021 174 by Marina Del Valle RN Outcome: Progressing Goal: Ability to maintain adequate ventilation will improve 07/20/2021 174 by Marina Del Valle RN Outcome: Progressing 07/20/2021 174 by Marina Del Valle RN Outcome: Progressing Goal: Peripheral tissue perfusion will improve 07/20/20211741 by Marina Del Valle, MAYR Outcome: Progressing 07/20/2021 174 by Marina Del Valle RN Outcome: Progressing Problem: Urinary Elimination: Goal: Ability to achieve and maintain adequate renal perfusion and functioning will improve 07/20/20211741 by Marina Del Valle RN Outcome: Progressing 07/20/2021 174 by Marina Del Valle RN Outcome: Progressing Problem: Lack of Knowledge: Goal: Ability to state ways to decrease the risk of falls will improve 07/20/20211741 by Marina Del Valle RN Outcome: Progressing 07/20/2021 174 by Marina Del Valle, MARY Outcome: Progressing Problem: Safety: Goal: Will remain free from falls 07/20/2021 174 by Marina Del Valle RN Outcome: Progressing 07/20/2021 174 by Marina Del Valle RN Outcome: Progressing Goal: Will remain free from injury from falls 07/20/20211741 by Marina Del Valle, MARY Outcome: Progressing 07/20/2021 174 by Marina Del Valle, MARY Outcome: Progressing Goal: Will remain free from falls and injury in home environment 07/20/2021 174 by Marina Del Valle, MARY Outcome: Progressing 07/20/20211741 by Marina Del Valle RN Outcome: Progressing Problem: Cardiac: Goal: Ability to maintain an adequate cardiac output will improve 07/20/20211741 by Marina Del Valle RN Outcome: Not Progressing 07/20/20211741 by Marina Del Valle RN Outcome: Progressing Problem: Lack of Knowledge: Goal: Ability to describe self-care measures that may prevent or decrease complications will improve 07/20/20211741 by Marina Del Valle RN Outcome: Not Progressing 07/20/20211741 by Marina Del Valle RN Outcome: Progressing documented in this encounter Plan of Treatment Not on file documented as of this encounter Procedures Procedure Name Priority Date/Time Associated Diagnosis Comments POCT GLUCOSE DEVICE Routine 07/23/2021 1 1:53 AM CDT POCT GLUCOSE DEVICE Routine 07/23/2021 8 :59 AM CDT EGFR Routine 07/23/2021 2:15 AM CDT DIFFERENTIAL AUTO Routine 07/23/2021 2:1 5 AM CDT CBC WITH AUTO DIFFERENTIAL Routine 07/23/2021 2:15 AM CDT COMPREHENSIVE METABOLIC PANEL Routine 07/23/2021 2:15 AM CDT POCT GLUCOSE DEVICE Routine 07/23/2021 1 :52 AM CDT POCT GLUCOSE DEVICE Routine 07/22/2021 9 :43 PM CDT POCT GLUCOSE DEVICE Routine 07/22/2021 4 :49 PM CDT POCT GLUCOSE DEVICE Routine 07/22/2021 1 1:54 AM CDT POCT GLUCOSE DEVICE Routine 07/22/2021 1 0:11 AM CDT POCT GLUCOSE DEVICE Routine 07/22/2021 8 :52 AM CDT POCT GLUCOSE DEVICE Routine 07/22/2021 7 :46 AM CDT EGFR Routine 07/22/2021 7:06 AM CDT DIFFERENTIAL AUTO Routine 07/22/2021 7:0 6 AM CDT CBC WITH AUTO DIFFERENTIAL Routine 07/22/2021 7:06 AM CDT COMPREHENSIVE METABOLIC PANEL Routine 07/22/2021 7:06 AM CDT POCT GLUCOSE DEVICE Routine 07/22/2021 6 :45 AM CDT POCT GLUCOSE DEVICE Routine 07/22/2021 6 :00 AM CDT POCT GLUCOSE DEVICE Routine 07/22/2021 4 :53 AM CDT POCT GLUCOSE DEVICE Routine 07/22/2021 3 :37 AM CDT POCT GLUCOSE DEVICE Routine 07/22/2021 2 :33 AM CDT POCT GLUCOSE DEVICE Routine 07/22/2021 1 :30 AM CDT POCT GLUCOSE DEVICE Routine 07/21/2021 1 1:26 PM CDT POCT GLUCOSE DEVICE Routine 07/21/2021 1 0:23 PM CDT POCT GLUCOSE DEVICE Routine 07/21/2021 9 :19 PM CDT POCT GLUCOSE DEVICE Routine 07/21/2021 8 :13 PM CDT POCT GLUCOSE DEVICE Routine 07/21/2021 7 :14 PM CDT POCT GLUCOSE DEVICE Routine 07/21/2021 5 :59 PM CDT POCT GLUCOSE DEVICE Routine 07/21/2021 5 :02 PM CDT POCT GLUCOSE DEVICE Routine 07/21/2021 3 :59 PM CDT POCT GLUCOSE DEVICE Routine 07/21/2021 2 :53 PM CDT POCT GLUCOSE DEVICE Routine 07/21/2021 1 :47 PM CDT POCT GLUCOSE DEVICE Routine 07/21/2021 1 2:43 PM CDT POCT GLUCOSE DEVICE Routine 07/21/2021 1 1:38 AM CDT POCT GLUCOSE DEVICE Routine 07/21/2021 1 0:44 AM CDT POCT GLUCOSE DEVICE Routine 07/21/2021 9 :41 AM CDT POCT GLUCOSE DEVICE Routine 07/21/2021 8 :37 AM CDT EGFR Timed 07/21/2021 8:08 AM CDT BASIC METABOLIC PANEL Timed 07/21/2021 8:08 AM CDT POCT GLUCOSE DEVICE Routine 07/21/2021 7 :32 AM CDT POCT GLUCOSE DEVICE Routine 07/21/2021 6 :32 AM CDT POCT GLUCOSE DEVICE Routine 07/21/2021 5 :29 AM CDT POCT GLUCOSE DEVICE Routine 07/21/2021 4 :35 AM CDT POCT GLUCOSE DEVICE Routine 07/21/2021 3 :33 AM CDT EGFR Routine 07/21/2021 2:33 AM CDT DIFFERENTIAL AUTO Routine 07/21/2021 2:3 3 AM CDT CBC WITH AUTO DIFFERENTIAL Routine 07/21/2021 2:33 AM CDT COMPREHENSIVE METABOLIC PANEL Routine 07/21/2021 2:33 AM CDT POCT GLUCOSE DEVICE Routine 07/21/2021 2 :32 AM CDT POCT GLUCOSE DEVICE Routine 07/21/2021 1 :30 AM CDT POCT GLUCOSE DEVICE Routine 07/21/2021 1 2:29 AM CDT POCT GLUCOSE DEVICE Routine 07/20/2021 1 1:31 PM CDT POCT GLUCOSE DEVICE Routine 07/20/2021 1 0:31 PM CDT POCT GLUCOSE DEVICE Routine 07/20/2021 9 :28 PM CDT URINALYSIS AND REFLEX TO MICROSCOPIC AND CULTURE STAT 07/20/2021 8:52 PM CDT DRUGS OF ABUSE SCREEN, URINE WITHOUT CONFIRMATION STAT 07/20/2021 8:52 PM CDT URINALYSIS, MICROSCOPIC ONLY STAT 07/20/2021 8:52 PM CDT LACTATE Timed 07/20/2021 8:38 PM CDT EGFR Timed 07/20/2021 8:38 PM CDT BASIC METABOLIC PANEL Timed 07/20/2021 8:38 PM CDT POCT GLUCOSE DEVICE Routine 07/20/2021 8 :27 PM CDT POCT GLUCOSE DEVICE Routine 07/20/2021 7 :24 PM CDT POCT GLUCOSE DEVICE Routine 07/20/2021 6 :24 PM CDT POCT GLUCOSE DEVICE Routine 07/20/2021 5 :27 PM CDT POCT GLUCOSE DEVICE Routine 07/20/2021 4 :25 PM CDT POCT GLUCOSE DEVICE Routine 07/20/2021 3 :22 PM CDT POCT GLUCOSE DEVICE Routine 07/20/2021 2 :23 PM CDT SEPSIS LACTATE WITH REFLEX STAT 07/20/2021 12:35 PM CDT EGFR STAT 07/20/2021 12:35 PM CDT DIFFERENTIAL AUTO STAT 07/20/2021 12: 35 PM CDT CBC WITH AUTO DIFFERENTIAL STAT 07/20/2021 12:35 PM CDT HCG, BLOOD, QUANTITATIVE STAT 07/20/2021 12:35 PM CDT LIPASE STAT 07/20/2021 12:35 PM CDT COMPREHENSIVE METABOLIC PANEL STAT 07/20/2021 12:35 PM CDT documented in this encounter Results * (ABNORMAL) POCT glucose (07/23/2021 11:53 AM CDT) Pathologist [facility] Glucose, POC 166(H) 71 - 98 mg/dL TOMY SAHU ([place]) Blood 07/23/2021 11:5 3 AM CDT 07/23/2021 11:53 AM CDT us Cally Crespo MD LAB POCT ORDERABLES - DEV ICE Final Result TOMY LUQUE) 1 [facility] Department [place] [address] * (ABNORMAL) POCT glucose (07/23/2021 8:59 AM CDT) Glucose, POC 211(H) 71 - 98 mg/dL TOMY SAHU ([place]) Blood 07/23/2021 8:59 AM CDT 07/23/2021 8:59 AM CDT us Cally Crespo MD LAB POCT ORDERABLES - DEV ICE Final Result TOMY OwensVASHTI) [address] [facility] [place] [address] * eGFR (07/23/2021 2:15 AM CDT) [facility] [address] eGFR 136 mL/min/1. 73 m2 TOMY SAHU (VASHTI) Comment: [...] interpretive data was last reviewed 2021. Blood 07/23/2021 2:15 AM CDT 07/23/2021 3:59 AM CDT us Dominic Camara MD LAB BLOOD ORDERABLES Final Resu lt [facility] ([place]) 1 [facility] [place] [address] * Differential, auto (07/23/2021 2:15 AM CDT) Neutrophil abs 5.3 1.7 - 6.5 K/cumm [facility] ([place]) Imm gran abs 0.1 0.0 - 0.1 K/cumm [facility] ([place]) Lymphocyte abs 1.7 0.8 - 3.3 K/cumm [facility] ([place]) Monocyte abs 0.8 0.2 - 0.8 K/cumm [facility] ([place]) Eosinophil abs 0.0 0.0 - 0.5 K/cumm [facility] ([place]) Basophil abs 0.0 0.0 - 0.1 K/cumm [facility] ([place]) Neutrophil pct 67.9 % [facility] ([place]) Comment: Interpretive Data Percent cell count reference ranges are not reported, since discordance with absolute values may lead to misinterpretation of CBC data. Current Interpretive Data was last revised on 2017. Imm gran pct 0.6 % [facility] ([place]) Comment: Interpretive Data Percent cell count reference ranges are not reported, since discordance with absolute values may lead to misinterpretation of CBC data. Current Interpretive Data was last revised on 2017. Lymphocyte pct 21.5 % [facility] ([place]) Comment: Interpretive Data Percent cell count reference ranges are not reported, since discordance with absolute values may lead to misinterpretation of CBC data. Current Interpretive Data was last revised on 2017. Monocyte pct 9.7 % [facility] ([place]) Comment: Interpretive Data [...] Data was last revised on 2017. Blood 07/23/2021 2:15 AM CDT 07/23/2021 4:08 AM CDT us Dominic Camara MD LAB BLOOD ORDERABLES Final Resu lt [facility] ([place]) 1 [facility] Department [place] [address] * (ABNORMAL) Comprehensive metabolic panel (07/23/2021 2:15 AM CDT) Sodium 136 135 - 145 mmol/L [facility] ([place]) Potassium, pl 3.2(L) 3.3 - 4.9 mmol/L [facility] ([place]) Chloride 94(L) 97 - 110 mmol/L [facility] ([place]) CO2 21(L) 22 - 32 mmol/L [facility] ([place]) Anion gap 21(H) 2 - 15 mmol/L [facility] ([place]) BUN 11 8 - 25 mg/dL [facility] [facility] ([facility]) Creatinine 0.46(L) 0.60 - 1.10 mg/dL [facility] ([place]) [...] interpretive data was last revised 2017. Calcium 8.9 8.5 - 10.3 mg/dL [facility] ([place]) Bilirubin, total 0.8 0.1 - 1.2 mg/dL [facility] ([place]) Protein, pl 6.5 6.5 - 8.5 g/dL [facility] ([place]) Albumin 4.0 3.5 - 5.0 g/dL [facility] ([place]) Alk phos 93 40 - 130 Units/L [facility] ([place]) ALT 14 7 - 45 Units/L [facility] ([place]) AST 14 10 - 45 Units/L [facility] ([place]) Comment:Slightly Hemolyzed S pecimen Blood 07/23/2021 2:15 AM CDT 07/23/2021 3:59 AM CDT us Dominic Camraa MD LAB BLOOD ORDERABLES Final Resu lt [facility] ([place]) 1 [facility] [place] [address] * (ABNORMAL) CBC with auto differential (07/23/2021 2:15 AM CDT) WBC 7.8 3.8 - 9.9 K/cumm [facility] ([place]) Hgb 12.6 11.9 - 15.5 g/dL [facility] ([place]) Hct 38.0 35.6 - 45.5 % [facility] ([place]) Plt 302 150 - 400 K/cumm [facility] ([place]) MPV 10.2 9.1 - 12.3 fL [facility] ([place]) RBC 4.86 3.90 - 5.20 M/cumm [facility] ([place]) MCV 78.2(L) 81.3 - 96.4 fL [facility] ([place]) MCH 25.9(L) 27.1 - 33.3 pg [facility] ([place]) MCHC 33.2 32.3 - 35.7 g/dL [facility] ([place]) RDW CV 16.0(H) 11.1 - 14.9 % TOMY SA[facility] ([place]) RDW SD 45.2 35.7 - 48.1 fL TOMY [facility] ([place]) NRBC abs 0.00 0.00 - 0.01 K/cumm TOMY [facility] ([place]) Blood 07/23/2021 2:15 AM CDT 07/23/2021 4:08 AM CDT us Dominic Camara MD LAB BLOOD ORDERABLES Final Resu lt TOMY SAHU ([place]) 1 [facility] [place] [address] * (ABNORMAL) POCT glucose (07/23/2021 1:52 AM CDT) Glucose, POC 234(H) 71 - 98 mg/dL TOMY SAHU ([place]) Blood 07/23/2021 1:52 AM CDT 07/23/2021 1:52 AM CDT Cally Crespo MD LAB POCT ORDERABLES - DEV ICE Final Result Performing Organization Address City/[facility]/ZIP Co de Phone Number TOMY SAHU ([place]) 1 [facility] [place] [address] * (ABNORMAL) POCT glucose (07/22/2021 9:43 PM CDT) Glucose, POC 292(H) 71 - 98 mg/dL TOMY SAHU ([place]) Blood 07/22/2021 9:43 PM CDT 07/22/2021 9:43 PM CDT Cally Crespo MD LAB POCT ORDERABLES - DEV ICE Final Result TOYM SAHU ([place]) 1 [facility] [place] [address] * (ABNORMAL) POCT glucose (07/22/2021 4:49 PM CDT) Glucose, POC 248(H) 71 - 98 mg/dL TOMY SAHU ([place]) Blood 07/22/2021 4:49 PM CDT 07/22/2021 4:49 PM CDT Cally Crespo MD LAB POCT ORDERABLES - DEV ICE Final Result TOMY SAHU ([place]) 1 [facility] [place] [address] * (ABNORMAL) POCT glucose (07/22/2021 11:54 AM CDT) Glucose, POC 256(H) 71 - 98 mg/dL TOMY SAHU ([place]) Blood 07/22/2021 11:5 4 AM CDT 07/22/2021 11:54 AM CDT Cally Crespo MD LAB POCT ORDERABLES - DEV ICE Final Result Performing Organization Address [facility] Co de Phone Number TOMY SAHU ([place]) 1 [facility] [place] [address] * (ABNORMAL) POCT glucose (07/22/2021 10:11 AM CDT) Glucose, POC 207(H) 71 - 98 mg/dL TOMY SAHU ([place]) Comment:Glu2: RN/MD Notified Blood 07/22/2021 10:1 1 AM CDT 07/22/2021 10:11 AM CDT Cally Crespo MD LAB POCT ORDERABLES - DEV ICE Final Result TOMY SAHU ([place]) 1 [facility] [place] [address] * POCT glucose (07/22/2021 8:52 AM CDT) Glucose, POC 97 71 - 98 mg/dL [facility] ([place]) Blood 07/22/2021 8:52 AM CDT 07/22/2021 8:52 AM CDT Dominic Camara MD LAB POCT ORDERABLES - DEVICE Fi nal Result Performing Organization Address [facility] Co de Phone Number [facility] ([place]) 1 [facility] [place] [address] * (ABNORMAL) POCT glucose (07/22/2021 7:46 AM CDT) Pathologist [facility] Glucose, POC 110(H) 71 - 98 mg/dL [facility] ([place]) Blood 07/22/2021 7:46 AM CDT 07/22/2021 7:46 AM CDT Dominic Camara MD LAB POCT ORDERABLES - DEVICE Fi nal Result Performing Organization Address [facility]/[place] de Phone Number [facility] ([place]) 1 [facility] [place] [address] * eGFR (07/22/2021 7:06 AM CDT) eGFR 143 mL/min/1. 73 m2 [facility] ([place]) Comment: Interpretive Data Reference Interval Normal ?>/= [...] interpretive data was last reviewed 2021. Blood 07/22/2021 7:06 AM CDT 07/22/2021 7:10 AM CDT us Dominic Camara MD LAB BLOOD ORDERABLES Final Resu lt TOMY [facility] ([place]) 1 [facility] [place] [address] * (ABNORMAL) Differential, auto (07/22/2021 7:06 AM CDT) Neutrophil abs 5.3 1.7 - 6.5 K/cumm [facility] ([place]) Imm gran abs 0.0 0.0 - 0.1 K/cumm [facility] ([place]) Lymphocyte abs 1.4 0.8 - 3.3 K/cumm [facility] ([place]) Monocyte abs 0.9(H) 0.2 - 0.8 K/cumm [facility] ([place]) Eosinophil abs 0.2 0.0 - 0.5 K/cumm [facility] ([place]) Basophil abs 0.0 0.0 - 0.1 K/cumm [facility] ([place]) Neutrophil pct 66.9 % [facility] ([place]) Comment: Interpretive Data Percent cell count reference ranges are not reported, since discordance with absolute values may lead to misinterpretation of CBC data. Current Interpretive Data was last revised on 2017. Imm gran pct 0.3 % [facility] ([place]) Comment: Interpretive Data Percent cell count reference ranges are not reported, since discordance with absolute values may lead to misinterpretation of CBC data. Current Interpretive Data was last revised on 2017. Lymphocyte pct 18.0 % [facility] ([place]) Comment: Interpretive Data Percent cell count reference ranges are not reported, since discordance with absolute values may lead to misinterpretation of CBC data. Current Interpretive Data was last revised on 2017. Monocyte pct 11.9 % [facility] ([place]) Comment: Interpretive Data Percent cell count reference ranges are not reported, since discordance with absolute values may lead to misinterpretation of CBC data. Current Interpretive Data was last revised on 2017. Eosinophil pct 2.8 % [facility] ([place]) Comment: Interpretive Data Percent cell count reference ranges are not reported, since discordance with absolute values may lead to misinterpretation of CBC data. Current Interpretive Data was last revised on 2017. Basophil pct 0.1 % [facility] ([place]) Comment: Interpretive Data Percent cell count reference ranges are not reported, since discordance with absolute values may lead to misinterpretation of CBC data. Current Interpretive Data was last revised on 2017. Blood 07/22/2021 7:06 AM CDT 07/22/2021 7:10 AM CDT us Dominic Camara MD LAB BLOOD ORDERABLES Final Resu lt TOMY [facility] ([place]) 1 [facility] Department [place] [address] * (ABNORMAL) Comprehensive metabolic panel (07/22/2021 7:06 AM CDT) Sodium 136 135 - 145 mmol/L [facility] ([place]) Potassium, pl 2.9(C) 3.3 - 4.9 mmol/L [facility] ([place]) Comment:Critical Result call ed to and read back by Gabe Gan (ICU), DATE: 2021-07-22 07:35:39 BY: Amna Spear Chloride 98 97 - 110 mmol/L [facility] ([place]) CO2 27 22 - 32 mmol/L [facility] ([place]) Anion gap 10 2 - 15 mmol/L [facility] ([place]) BUN 4(L) 8 - 25 mg/dL [facility] ([place]) Creatinine 0.37(L) 0.60 - 1.10 mg/dL [facility] ([place]) Glucose 121 70 - 199 mg/dL [facility] ([place]) [...] 1.2 mg/dL [facility] ([place]) Protein, pl 6.4(L) 6.5 - 8.5 g/dL [facility] ([place]) Albumin 3.7 3.5 - 5.0 g/dL [facility] ([place]) Alk phos 82 40 - 130 Units/L [facility] ([place]) ALT 16 7 - 45 Units/L [facility] ([place]) AST 17 10 - 45 Units/L [facility] ([place]) Comment:Slightly Hemolyzed S pecimen Blood 07/22/2021 7:06 AM CDT 07/22/2021 7:10 AM CDT us Dominic Camara MD LAB BLOOD ORDERABLES Final Resu lt TOMY [facility] ([place]) 1 [facility] Department of Laboratories [place], [place] [id number] * (ABNORMAL) CBC with auto differential (07/22/2021 7:06 AM CDT) WBC 7.9 3.8 - 9.9 K/cumm [facility] ([place]) Hgb 12.1 11.9 - 15.5 g/dL [facility] ([place]) Hct 36.3 35.6 - 45.5 % [facility] ([place]) Plt 298 150 - 400 K/cumm [facility] ([place]) MPV 9.1 9.1 - 12.3 fL [facility] ([place]) RBC 4.69 3.90 - 5.20 M/cumm [facility] ([place]) MCV 77.4(L) 81.3 - 96.4 fL [facility] ([place]) MCH 25.8(L) 27.1 - 33.3 pg [facility] ([place]) MCHC 33.3 32.3 - 35.7 g/dL [facility] ([place]) RDW CV 16.1(H) 11.1 - 14.9 % [facility] ([place]) RDW SD 44.9 35.7 - 48.1 fL [facility] ([place]) NRBC abs 0.00 0.00 - 0.01 K/cumm [facility] ([place]) Blood 07/22/2021 7:06 AM CDT 07/22/2021 7:10 AM CDT Dominic Camara MD LAB BLOOD ORDERABLES Final Resu lt TOMY SAHU ([place]) 1 [facility] [place] [address] * (ABNORMAL) POCT glucose (07/22/2021 6:45 AM CDT) Glucose, POC 116(H) 71 - 98 mg/dL [facility] ([place]) Blood 07/22/2021 6:45 AM CDT 07/22/2021 6:45 AM CDT Dominic Camara MD LAB POCT ORDERABLES - DEVICE Fi nal Result Performing Organization Address City/[facility]/ZIP Co de Phone Number TOMY SAHU ([place]) [address] [facility] [place] [address] * (ABNORMAL) POCT glucose (07/22/2021 6:00 AM CDT) Glucose, POC 172(H) 71 - 98 mg/dL TOMY SAHU ([place]) Blood 07/22/2021 6:00 AM CDT 07/22/2021 6:00 AM CDT Dominic Camara MD LAB POCT ORDERABLES - DEVICE Fi nal Result Performing Organization Address City/[facility]/ZIP Co de Phone Number TOMY SAHU ([place]) 1 [facility] [place] [address] * (ABNORMAL) POCT glucose (07/22/2021 4:53 AM CDT) Glucose, POC 226(H) 71 - 98 mg/dL TOMY [facility] ([place]) Blood 07/22/2021 4:53 AM CDT 07/22/2021 4:53 AM CDT Dominic Camara MD LAB POCT ORDERABLES - DEVICE Fi nal Result Performing Organization Address City/[facility] Co de Phone Number TOMY SAHU ([place]) 1 [facility] [place] [address] * POCT glucose (07/22/2021 3:37 AM CDT) Glucose, POC 92 71 - 98 mg/dL TOMY [facility] ([place]) Blood 07/22/2021 3:37 AM CDT 07/22/2021 3:37 AM CDT Dominic Camara MD LAB POCT ORDERABLES - DEVICE Fi nal Result Performing Organization Address City/[facility] Co de Phone Number TOMY SAHU ([place]) 1 [facility] [place] [address] * (ABNORMAL) POCT glucose (07/22/2021 2:33 AM CDT) Glucose, POC 116(H) 71 - 98 mg/dL [facility] ([place]) Blood 07/22/2021 2:33 AM CDT 07/22/2021 2:33 AM CDT us Dominic Camara MD LAB POCT ORDERABLES - DEVICE Fi nal Result Performing Organization Address City/[facility]/ZIP Co de Phone Number TOMY SAHU ([place]) 1 [facility] [place] [address] * (ABNORMAL) POCT glucose (07/22/2021 1:30 AM CDT) Glucose, POC 159(H) 71 - 98 mg/dL TOMY [facility] ([place]) Blood 07/22/2021 1:30 AM CDT 07/22/2021 1:30 AM CDT us Dominic Camara MD LAB POCT ORDERABLES - DEVICE Fi nal Result Performing Organization Address City/[facility]/ZIP Co de Phone Number TOMY SAHU ([place]) 1 [facility] [place] [address] * (ABNORMAL) POCT glucose (07/21/2021 11:26 PM CDT) Glucose, POC 121(H) 71 - 98 mg/dL TOMY [facility] ([place]) Blood 07/21/2021 11:2 6 PM CDT 07/21/2021 11:26 PM CDT us Dominic Camara MD LAB POCT ORDERABLES - DEVICE Fi nal Result Performing Organization Address City/[facility]/ZIP Co de Phone Number TOMY SAHU ([place]) 1 [facility] [place] [address] * (ABNORMAL) POCT glucose (07/21/2021 10:23 PM CDT) Glucose, POC 112(H) 71 - 98 mg/dL TOMY SAHU ([place]) Blood 07/21/2021 10:2 3 PM CDT 07/21/2021 10:23 PM CDT Dominic Camara MD LAB POCT ORDERABLES - DEVICE Fi nal Result TOMY SAHU ([place]) 1 [facility] [place] [address] * (ABNORMAL) POCT glucose (07/21/2021 9:19 PM CDT) Glucose, POC 117(H) 71 - 98 mg/dL [facility] Blood 07/21/2021 9:19 PM CDT 07/21/2021 9:19 PM CDT Dominic Camara MD LAB POCT ORDERABLES - DEVICE Fi nal Result Performing Organization Address [facility] Co de Phone Number TOMY SAHU ([place]) 1 [facility] [place] [address] * (ABNORMAL) POCT glucose (07/21/2021 8:13 PM CDT) Glucose, POC 129(H) 71 - 98 mg/dL [facility] ([place] Blood 07/21/2021 8:13 PM CDT 07/21/2021 8:13 PM CDT Dominic Camara MD LAB POCT ORDERABLES - DEVICE Fi nal Result Performing Organization Address City/[facility]/ZIP Co de Phone Number TOMY SAHU ([place]) 1 [facility] [place] [address] * (ABNORMAL) POCT glucose (07/21/2021 7:14 PM CDT) Glucose, POC 120(H) 71 - 98 mg/dL [facility] ([place] Blood 07/21/2021 7:14 PM CDT 07/21/2021 7:14 PM CDT us Dominic Camara MD LAB POCT ORDERABLES - DEVICE Fi nal Result Performing Organization Address City/[facility]/ZIP Co de Phone Number TOMY SAHU ([place]) 1 [facility] [place] [address] * (ABNORMAL) POCT glucose (07/21/2021 5:59 PM CDT) Glucose, POC 124(H) 71 - 98 mg/dL TOMY SAHU ([place]) Blood 07/21/2021 5:59 PM CDT 07/21/2021 5:59 PM CDT Dominic Camara MD LAB POCT ORDERABLES - DEVICE Fi nal Result Performing Organization Address [facility] Co de Phone Number TOMY SAHU ([place]) 1 [facility] [place] [address] * (ABNORMAL) POCT glucose (07/21/2021 5:02 PM CDT) Glucose, POC 102(H) 71 - 98 mg/dL TOMY [facility] ([place]) Blood 07/21/2021 5:02 PM CDT 07/21/2021 5:02 PM CDT Dominic Camara MD LAB POCT ORDERABLES - DEVICE Fi nal Result Performing Organization Address City/[facility] Co de Phone Number TOMY SAHU ([place]) 1 [facility] [place] [address] * (ABNORMAL) POCT glucose (07/21/2021 3:59 PM CDT) Glucose, POC 142(H) 71 - 98 mg/dL TOMY [facility] ([place]) Blood 07/21/2021 3:59 PM CDT 07/21/2021 3:59 PM CDT us Dominic Camara MD LAB POCT ORDERABLES - DEVICE Fi nal Result Performing Organization Address City/[facility]/ZIP Co de Phone Number TOMY SAHU ([place]) 1 [facility] [place] [address] * (ABNORMAL) POCT glucose (07/21/2021 2:53 PM CDT) Glucose, POC 196(H) 71 - 98 mg/dL TOMY SAHU ([place]) Blood 07/21/2021 2:53 PM CDT 07/21/2021 2:53 PM CDT Dominic Camara MD LAB POCT ORDERABLES - DEVICE Fi nal Result TOMY SAHU ([place]) 1 [facility] [place] [address] * (ABNORMAL) POCT glucose (07/21/2021 1:47 PM CDT) Glucose, POC 115(H) 71 - 98 mg/dL TOMY SAHU ([place]) Blood 07/21/2021 1:47 PM CDT 07/21/2021 1:47 PM CDT Dominic Camara MD LAB POCT ORDERABLES - DEVICE Fi nal Result TOMY SAHU ([place]) 1 [facility] [place] [address] * (ABNORMAL) POCT glucose (07/21/2021 12:43 PM CDT) Glucose, POC 109(H) 71 - 98 mg/dL TOMY SAHU ([place]) Blood 07/21/2021 12:4 3 PM CDT 07/21/2021 12:43 PM CDT Dominic Camara MD LAB POCT ORDERABLES - DEVICE Fi nal Result TOMY SAHU ([place]) 1 [facility] [place] [address] * (ABNORMAL) POCT glucose (07/21/2021 11:38 AM CDT) Glucose, POC 101(H) 71 - 98 mg/dL TOMY SAHU ([place]) Blood 07/21/2021 11:3 8 AM CDT 07/21/2021 11:38 AM CDT us Dominic Camara MD LAB POCT ORDERABLES - DEVICE Fi nal Result TOMY SAHU ([place]) 1 [facility] [place] [address] * (ABNORMAL) POCT glucose (07/21/2021 10:44 AM CDT) Glucose, POC 115(H) 71 - 98 mg/dL TOMY SAHU ([place]) Blood 07/21/2021 10:4 4 AM CDT 07/21/2021 10:44 AM CDT us Dominic Camara MD LAB POCT ORDERABLES - DEVICE Fi nal Result Performing Organization Address City/[facility]/ZIP Co de Phone Number TOMY SAHU ([place]) 1 [facility] [place] [address] * (ABNORMAL) POCT glucose (07/21/2021 9:41 AM CDT) Glucose, POC 146(H) 71 - 98 mg/dL TOMY SAHU ([place]) Blood 07/21/2021 9:41 AM CDT 07/21/2021 9:41 AM CDT us Dominic Camara MD LAB POCT ORDERABLES - DEVICE Fi nal Result TOMY SAHU ([place]) 1 [facility] [place] [address] * (ABNORMAL) POCT glucose (07/21/2021 8:37 AM CDT) Glucose, POC 141(H) 71 - 98 mg/dL TMOY SAHU ([place]) Blood 07/21/2021 8:37 AM CDT 07/21/2021 8:37 AM CDT us Dominic Camara MD LAB POCT ORDERABLES - DEVICE Fi nal Result TOMY LUIS ALBERTO ([place]) 1 [facility] [place] [address] * eGFR (07/21/2021 8:08 AM CDT) eGFR 141 mL/min/1. 73 m2 TOMY SAHU (BE[place]) Comment: Interpretive Data Reference Interval Normal ?>/= [...] interpretive data was last reviewed 2021. Blood 07/21/2021 8:08 AM CDT 07/21/2021 8:17 AM CDT us Dominic Camara MD LAB BLOOD ORDERABLES Final Resu lt TOMY SAHU ([place]) 1 [facility] Department [place] [address] * (ABNORMAL) Basic metabolic panel (07/21/2021 8:08 AM CDT) Sodium 138 135 - 145 mmol/L [facility] ([place]) Potassium, pl 3.4 3.3 - 4.9 mmol/L [facility] ([place]) Chloride 104 97 - 110 mmol/L [facility] ([place]) CO2 22 22 - 32 mmol/L [facility] ([place]) Anion gap 12 2 - 15 mmol/L [facility] ([place]) BUN 11 8 - 25 mg/dL [facility] ([place]) Creatinine 0.40(L) 0.60 - 1.10 mg/dL [facility] ([place]) Glucose 132 70 - 199 mg/dL [facility] ([place]) Comment: Interpretive Data Fasting [...] 2017. Calcium 8.7 8.5 - 10.3 mg/dL [facility] (V[place]HTI) Blood 07/21/2021 8:08 AM CDT 07/21/2021 8:17 AM CDT Narrative TOMY SAHU (V[place]HTI) - 07/21/2021 8:38 AM CDT @830 us Dominic Camara MD LAB BLOOD ORDERABLES Final Resu lt TOMY SAHU ([place]I) 1 [facility] Department [place] [address] * (ABNORMAL) POCT glucose (07/21/2021 7:32 AM CDT) Glucose, POC 105(H) 71 - 98 mg/dL TOMY SAHU ([place]) Blood 07/21/2021 7:32 AM CDT 07/21/2021 7:32 AM CDT Dominic Camara MD LAB POCT ORDERABLES - DEVICE Fi nal Result TOMY SAHU ([place]) 1 [facility] [place] [address] * (ABNORMAL) POCT glucose (07/21/2021 6:32 AM CDT) Glucose, POC 115(H) 71 - 98 mg/dL TOMY [facility] ([place]) Blood 07/21/2021 6:32 AM CDT 07/21/2021 6:32 AM CDT Dominic Camara MD LAB POCT ORDERABLES - DEVICE Fi nal Result Performing Organization Address City/[facility]/ZIP Co de Phone Number TOMY SAHU ([place]) 1 [facility] [place] [address] * (ABNORMAL) POCT glucose (07/21/2021 5:29 AM CDT) Glucose, POC 152(H) 71 - 98 mg/dL TOMY SAHU ([place]) Blood 07/21/2021 5:29 AM CDT 07/21/2021 5:29 AM CDT Dominic Camara MD LAB POCT ORDERABLES - DEVICE Fi nal Result TOMY SAHU ([place]) 1 [facility] [place] [address] * (ABNORMAL) POCT glucose (07/21/2021 4:35 AM CDT) Glucose, POC 116(H) 71 - 98 mg/dL [facility] ([place]) Blood 07/21/2021 4:35 AM CDT 07/21/2021 4:35 AM CDT Dominic Camara MD LAB POCT ORDERABLES - DEVICE Fi nal Result Performing Organization Address [facility]/ZIP Co de Phone Number [facility] ([place]) [address] [facility] [place] [address] * (ABNORMAL) POCT glucose (07/21/2021 3:33 AM CDT) Glucose, POC 128(H) 71 - 98 mg/dL [facility] ([place]) Blood 07/21/2021 3:33 AM CDT 07/21/2021 3:33 AM CDT Dominic Camara MD LAB POCT ORDERABLES - DEVICE Fi nal Result Performing Organization Address [facility] Co de Phone Number [facility] ([place]) 1 [facility] [place] [address] * eGFR (07/21/2021 2:33 AM CDT) eGFR 134 mL/min/1. 73 m2 [facility] ([place]) Comment: Interpretive Data Reference Interval Normal ?>/= [...] interpretive data was last reviewed 2021. Blood 07/21/2021 2:33 AM CDT 07/21/2021 2:42 AM CDT us Dominic Camara MD LAB BLOOD ORDERABLES Final Resu lt [facility] ([place]) 1 [facility] [place] [address] * (ABNORMAL) Differential, auto (07/21/2021 2:33 AM CDT) Neutrophil abs 11.6(H) 1.7 - 6.5 K/cumm [facility] ([place]) Imm gran abs 0.1 0.0 - 0.1 K/cumm [facility] ([place]) Lymphocyte abs 1.9 0.8 - 3.3 K/cumm [facility] ([place]) Monocyte abs 1.5(H) 0.2 - 0.8 K/cumm [facility] ([place]) Eosinophil abs 0.0 0.0 - 0.5 K/cumm [facility] ([place]) Basophil abs 0.0 0.0 - 0.1 K/cumm [facility] ([place]) Neutrophil pct 76.7 % [facility] ([place]) Comment: Interpretive Data Percent cell count reference ranges are not reported, since discordance with absolute values may lead to misinterpretation of CBC data. Current Interpretive Data was last revised on 2017. Imm gran pct 0.3 % [facility] ([place]) Comment: Interpretive Data Percent cell count reference ranges are not reported, since discordance with absolute values may lead to misinterpretation of CBC data. Current Interpretive Data was last revised on 2017. Lymphocyte pct 12.7 % [facility] ([place]) Comment: Interpretive Data Percent cell count reference ranges are not reported, since discordance with absolute values may lead to misinterpretation of CBC data. Current Interpretive Data was last revised on 2017. Monocyte pct 10.2 % [facility] ([place]) Comment: Interpretive Data [...] was last revised on 2017. Basophil pct 0.1 % [facility] ([place]) Comment: Interpretive Data Percent cell count reference ranges are not reported, since discordance with absolute values may lead to misinterpretation of CBC data. Current Interpretive Data was last revised on 2017. Blood 07/21/2021 2:33 AM CDT 07/21/2021 2:42 AM CDT us Dominic Camara MD LAB BLOOD ORDERABLES Final Resu lt [facility] ([place]) 1 [facility] [place] [address] * (ABNORMAL) Comprehensive metabolic panel (07/21/2021 2:33 AM CDT) Sodium 140 135 - 145 mmol/L [facility] ([place]) Potassium, pl 3.8 3.3 - 4.9 mmol/L [facility] ([place]) Chloride 107 97 - 110 mmol/L [facility] ([place]) CO2 20(L) 22 - 32 mmol/L [facility] ([place]) Anion gap 13 2 - 15 mmol/L [facility] ([place]) BUN 15 8 - 25 mg/dL [facility] ([place]) Creatinine 0.49(L) 0.60 - 1.10 mg/dL [facility] ([place]) Glucose 149 70 - 199 mg/dL [facility] ([place]) [...] interpretive data was last revised 2017. Calcium 9.0 8.5 - 10.3 mg/dL [facility] ([place]) Bilirubin, total 0.5 0.1 - 1.2 mg/dL [facility] ([place]) Protein, pl 6.5 6.5 - 8.5 g/dL [facility] ([place]) Albumin 4.1 3.5 - 5.0 g/dL [facility] ([place]) Alk phos 93 40 - 130 Units/L [facility] ([place]) ALT 14 7 - 45 Units/L [facility] ([place]) AST 17 10 - 45 Units/L [facility] ([place]) Blood 07/21/2021 2:33 AM CDT 07/21/2021 2:42 AM CDT us Dominic Camara MD LAB BLOOD ORDERABLES Final Resu lt [facility] ([place]) [facility] Department [place] [address] * (ABNORMAL) CBC with auto differential (07/21/2021 2:33 AM CDT) WBC 15.1(H) 3.8 - 9.9 K/cumm [facility] ([place]) Hgb 11.7(L) 11.9 - 15.5 g/dL [facility] ([place]) Hct 36.5 35.6 - 45.5 % [facility] ([place]) Plt 356 150 - 400 K/cumm [facility] ([place]) MPV 8.8(L) 9.1 - 12.3 fL [facility] ([place]) RBC 4.52 3.90 - 5.20 M/cumm [facility] ([place]) MCV 80.8(L) 81.3 - 96.4 fL [facility] ([place]) MCH 25.9(L) 27.1 - 33.3 pg [facility] ([place]) MCHC 32.1(L) 32.3 - 35.7 g/dL [facility] ([place]) RDW CV 16.8(H) 11.1 - 14.9 % [facility] ([place]) RDW SD 49.1(H) 35.7 - 48.1 fL [facility] ([place]) NRBC abs 0.00 0.00 - 0.01 K/cumm [facility] ([place]) Blood 07/21/2021 2:33 AM CDT 07/21/2021 2:42 AM CDT us Dominic Camara MD LAB BLOOD ORDERABLES Final Resu lt [facility] ([place]) [address] [facility] [place] [address] * (ABNORMAL) POCT glucose (07/21/2021 2:32 AM CDT) Glucose, POC 140(H) 71 - 98 mg/dL [facility] ([place]) Blood 07/21/2021 2:32 AM CDT 07/21/2021 2:32 AM CDT us Dominic Camara MD LAB POCT ORDERABLES - DEVICE Fi nal Result [facility] ([place]) 1 [facility] [place] [address] * (ABNORMAL) POCT glucose (07/21/2021 1:30 AM CDT) Glucose, POC 122(H) 71 - 98 mg/dL TOMY SAHU (VASHTI) Blood 07/21/2021 1:30 AM CDT 07/21/2021 1:30 AM CDT us Dominic Camara MD LAB POCT ORDERABLES - DEVICE Fi nal Result Performing Organization Address City/[facility]/ZIP Co de Phone Number TOMY SAHU (VASHTI) 1 [facility] [place] [address] * (ABNORMAL) POCT glucose (07/21/2021 12:29 AM CDT) Glucose, POC 104(H) 71 - 98 mg/dL TOMY SAHU (VASHTI) Blood 07/21/2021 12:2 9 AM CDT 07/21/2021 12:29 AM CDT us Dominic Camara MD LAB POCT ORDERABLES - DEVICE Fi nal Result Performing Organization Address [facility] Co de Phone Number TOMY SAHU (VASHTI) 1 [facility] [place] [address] * (ABNORMAL) POCT glucose (07/20/2021 11:31 PM CDT) Glucose, POC 131(H) 71 - 98 mg/dL TOMY SAHU (VASHTI) Blood 07/20/2021 11:3 1 PM CDT 07/20/2021 11:31 PM CDT Dominic Camara MD LAB POCT ORDERABLES - DEVICE Fi nal Result Performing Organization Address City/[facility]/ZIP Co de Phone Number TOMY SAHU (VASHTI) 1 [facility] [place] [address] * (ABNORMAL) POCT glucose (07/20/2021 10:31 PM CDT) Glucose, POC 127(H) 71 - 98 mg/dL TOMY SAHU (VASHTI) Blood 07/20/2021 10:3 1 PM CDT 07/20/2021 10:31 PM CDT Dominic Camara MD LAB POCT ORDERABLES - DEVICE Fi nal Result Performing Organization Address [facility] Co de Phone Number TOMY SAHU (BEAUFORT) [address] [facility] [place] [address] * (ABNORMAL) POCT glucose (07/20/2021 9:28 PM CDT) Glucose, POC 122(H) 71 - 98 mg/dL TOMY [facility] (BEAUFORT) Blood 07/20/2021 9:28 PM CDT 07/20/2021 9:28 PM CDT Dominic Camara MD LAB POCT ORDERABLES - DEVICE Fi nal Result Performing Organization Address [facility] de Phone Number TOMY SAHU (BEAUFORT) 1 [place] [address] * (ABNORMAL) Urinalysis, microscopic only (07/20/2021 8:52 PM CDT) WBC, ur 6-10(A) 0 - 5 /HPF [facility] (BEAUFORT) RBC, ur 0-2 0 - 2 /HPF [facility] ([place]ORT) Epithelial cells, squamous, ur 6-10(A) 0 - 5 /HPF [facility] ([place]) Mucous, ur Present(A) [facility] (BEAUFORT) Culture Reflex Comment Reflex conditions for urine culture (WBC >10) not met. [facility] ([place]) Urine 07/20/2021 8:52 PM CDT 07/20/2021 9:36 PM CDT Tavo Ochoa MD LAB URINE ORDERABLES Fi nal Result Performing Organization Address [facility] Co de Phone Number TOMY SAHU (BEAUFORT) [address] [facility] [place] [address] * Drugs of Abuse Screen, Urine without Confirmation (07/20/2021 8:52 PM CDT) [facility] [address] Amphetamine, ur Not Detected CutOff 500ng/mL CERNER [...] Data was last reviewed 2018. Urine Creatinine 102 mg/dL ASHLEY SAHU (VASHTI) Comment: Interpretive Data Urine Creatinine: < 10 mg/dL is extremely dilute = or > 10 but < 20 mg/dL is dilute = or > 20 mg/dL is normal Current Interpretive Data was last revised on 2017. Urine 07/20/2021 8:52 PM CDT 07/20/2021 9:36 PM CDT Narrative TOMY SAHU (VASHTI) - 07/20/2021 11:09 PM CDT Drug of Abuse screening is performed by immunoassay for medical purposes only. ??This is not to be used for Pain Management purposes. Tavo Ochoa MD LAB URINE ORDERABLES Fi nal Result TOMY SAHU (BEAUFORT) 1 [facility] Department [place] [address] * (ABNORMAL) Urinalysis reflex to microscopic and culture Urine (07/20/2021 8:52 PM CDT) Color, ur Yellow Yellow [facility] (VASHTI) Clarity, ur Clear Clear [facility] (VASHTI) Specific gravity, ur 1.030 1.003 - 1.030 [facility] (VASHTI) pH, [...] [facility] (VASHTI) Leukocyte esterase, ur 2+(A) Negative [facility] ([place]ASHTI) UA reflex comment Reflex to microscopic UA will be performed. [facility] ([place]ASHTI) Urine 07/20/2021 8:52 PM CDT 07/20/2021 9:36 PM CDT Narrative [facility] (VASHTI) - 07/20/2021 10:35 PM CDT ?? Urine pH is affected by diet, medications, systemic acid-base disturbances, and renal tubular function. ??pH may affect urinary stone formation. ??For example, urine pH below 6.0 may help reduce the tendency for calcium phosphate stones and pH greater than 6.0 may reduce the tendency for uric acid stone formation. Source: [employer]. Last revised 05-13-2017 Urine pH is affected by diet, medications, systemic acid-base disturbances, and renal tubular function. ??pH may affect urinary stone formation. ??For example, urine pH below 6.0 may help reduce the tendency for calcium phosphate stones and pH greater than 6.0 may reduce the tendency for uric acid stone formation. Source: [employer]. Last revised 05-13-2017 us Tvao Ochoa MD LAB MICROBIOLOGY - GENE RAL ORDERABLES Final Result TOMY SAHU (VASHTI) 1 [facility] Department [place] [address] * eGFR (07/20/2021 8:38 PM CDT) eGFR 133 mL/min/1. 73 m2 TOMY SAHU (BEAUFORT) Comment: Interpretive Data Reference Interval Normal ?>/= [...] interpretive data was last reviewed 2021. Blood 07/20/2021 8:38 PM CDT 07/20/2021 8:43 PM CDT us Dominic Camara MD LAB BLOOD ORDERABLES Final Resu lt TOMY SAHU (BEAUFORT) 1 [facility] Department [place] [address] * Lactate (07/20/2021 8:38 PM CDT) Pathologist [facility] Lactate 1.0 0.7 - 2.0 mmol/L [facility] (VASHTI) Blood 07/20/2021 8:38 PM CDT 07/20/2021 8:43 PM CDT Dominic Camara MD LAB BLOOD ORDERABLES Final Resu lt TOMY SAHU (VASHTI) 1 [facility] Department [place] [address] * (ABNORMAL) Basic metabolic panel (07/20/2021 8:38 PM CDT) Sodium 142 135 - 145 mmol/L [facility] ([place]HTI) Potassium, pl 4.0 3.3 - 4.9 mmol/L [facility] ([place]HTI) Chloride 110 97 - 110 mmol/L [facility] ([place]HTI) CO2 20(L) 22 - 32 mmol/L [facility] ([place]HT[place]) Anion gap 12 2 - 15 mmol/L [facility] ([place]ASHTI) BUN 19 8 - 25 mg/dL [facility] ([place]HTI) Creatinine 0.50(L) 0.60 - 1.10 mg/dL [facility] (VASHTI) Glucose 139 70 - 199 mg/dL [facility] (VASHTI) [...] interpretive data was last revised 2017. Calcium 9.2 8.5 - 10.3 mg/dL [facility] ([place]ASHTI) Blood 07/20/2021 8:38 PM CDT 07/20/2021 8:43 PM CDT Dominic Camara MD LAB BLOOD ORDERABLES Final Resu lt TOMY SAHU (VASHTI) 1 [facility] [place] [address] * (ABNORMAL) POCT glucose (07/20/2021 8:27 PM CDT) Glucose, POC 124(H) 71 - 98 mg/dL TOMY SAHU (VASHTI) Blood 07/20/2021 8:27 PM CDT 07/20/2021 8:27 PM CDT us Dominic Camara MD LAB POCT ORDERABLES - DEVICE Fi nal Result Performing Organization Address City/[facility]/ZIP Co de Phone Number TOMY SAHU (BEAUFORT) 1 [facility] [place] [address] * (ABNORMAL) POCT glucose (07/20/2021 7:24 PM CDT) Glucose, POC 138(H) 71 - 98 mg/dL TOMY SAHU (VASHTI) Blood 07/20/2021 7:24 PM CDT 07/20/2021 7:24 PM CDT us Dominic Camara MD LAB POCT ORDERABLES - DEVICE Fi nal Result Performing Organization Address City/[facility]/ZIP Co de Phone Number OTMY SAHU (BEAUFORT) 1 [facility] [place] [address] * (ABNORMAL) POCT glucose (07/20/2021 6:24 PM CDT) Glucose, POC 145(H) 71 - 98 mg/dL TOMY SAHU (VASHTI) Blood 07/20/2021 6:24 PM CDT 07/20/2021 6:24 PM CDT us Dominic Camara MD LAB POCT ORDERABLES - DEVICE Fi nal Result TOMY SAHU (BEAUFORT) 1 [facility] [place] [address] * (ABNORMAL) POCT glucose (07/20/2021 5:27 PM CDT) Glucose, POC 123(H) 71 - 98 mg/dL TOMY SAHU (VASHTI) Blood 07/20/2021 5:27 PM CDT 07/20/2021 5:27 PM CDT Dominic Camara MD LAB POCT ORDERABLES - DEVICE Fi nal Result TOMY SAHU (BEAUFORT) 1 [place] [address] * (ABNORMAL) POCT glucose (07/20/2021 4:25 PM CDT) Glucose, POC 120(H) 71 - 98 mg/dL [facility] Blood 07/20/2021 4:25 PM CDT 07/20/2021 4:25 PM CDT Dominic Camara MD LAB POCT ORDERABLES - DEVICE Fi nal Result Performing Organization Address City/[facility]/ZIP Co de Phone Number TOMY SAHU (BEAUFORT) 1 [facility] [place] [address] * (ABNORMAL) POCT glucose (07/20/2021 3:22 PM CDT) Glucose, POC 143(H) 71 - 98 mg/dL TOMY SAHU (BEAUFORT) Blood 07/20/2021 3:22 PM CDT 07/20/2021 3:22 PM CDT us Dominic Camara MD LAB POCT ORDERABLES - DEVICE Fi nal Result TOMY SAHU (BEAUFORT) 1 [facility] [place] [address] * (ABNORMAL) POCT glucose (07/20/2021 2:23 PM CDT) Glucose, POC 183(H) 71 - 98 mg/dL TOMY SAHU (BEAUFORT) Blood 07/20/2021 2:23 PM CDT 07/20/2021 2:23 PM CDT us Tavo Ochoa MD LAB POCT ORDERABLES - D EVICE Final Result TOMY LUIS ALBERTO (BEAUFORT) 1 [facility] Department [place] [address] * eGFR (07/20/2021 12:35 PM CDT) eGFR 115 mL/min/1. 73 m2 TOMY SAHU (VASHTI) Comment: [...] interpretive data was last reviewed 2021. Blood 07/20/2021 12:3 5 PM CDT 07/20/2021 12:42 PM CDT us Tavo Ochoa MD LAB BLOOD ORDERABLES Fi nal Result TOMY SAHU (BEAUFORT) 1 [facility] Department [place] [address] * (ABNORMAL) Differential, auto (07/20/2021 12:35 PM CDT) Neutrophil abs 11.9(H) 1.7 - 6.5 K/cumm [facility] ([place]I) Imm gran abs 0.1 0.0 - 0.1 K/cumm [facility] ([place]) Lymphocyte abs 1.0 0.8 - 3.3 K/cumm [facility] ([place]) Monocyte abs 0.9(H) 0.2 - 0.8 K/cumm [facility] ([place]) Eosinophil abs 0.0 0.0 - 0.5 K/cumm [facility] ([place]I) Basophil abs 0.0 0.0 - 0.1 K/cumm [facility] ([place]ASHTI) Neutrophil pct 85.3 % [facility] ([place]) Comment: Interpretive Data Percent cell count reference [...] was last revised on 2017. Lymphocyte pct 7.5 % [facility] (VASHTI) Comment: Interpretive Data Percent cell count reference ranges are not reported, since discordance with absolute values may lead to misinterpretation of CBC data. Current Interpretive Data was last revised on 2017. Monocyte pct 6.6 % [facility] (VASHTI) Comment: Interpretive Data [...] was last revised on 2017. Basophil pct 0.1 % TOMY SAHU (VASHTI) Comment: Interpretive Data Percent cell count reference ranges are not reported, since discordance with absolute values may lead to misinterpretation of CBC data. Current Interpretive Data was last revised on 2017. Blood 07/20/2021 12:3 5 PM CDT 07/20/2021 12:42 PM CDT Tavo Ochoa MD LAB BLOOD ORDERABLES Fi nal Result TOMY SAHU (VASHTI) 1 [facility] Department [place] [address] * hCG, blood, quantitative (07/20/2021 12:35 PM CDT) hCG, quant <5.0 0.0 - 5.0 IUnits/L TOMY SAHU (VASHTI) Comment: Interpretive Data Non- Female premenopausal: < or = 5.0 IUnits/L Men: < 5.0 IUnits/L Weeks of Gestation ? Reference Interval ?? 3 to 6 ? 5.8-31,795 IUnits/L ?? 7 to 10 ? 3,697-186,977 IUnits/L ??12 to 15 ?27,832- 70,791 IUnits/L ??16 to 18 ? 9,040- 58,179 IUnits/L Current Interpretive Data was last revised on 2017. Blood 07/20/2021 12:3 5 PM CDT 07/20/2021 12:42 PM CDT Tavo Ochoa MD LAB BLOOD ORDERABLES Ed ited Result - Final Performing Organization Address City/[facility]/ZIP Co de Phone Number TOMY SAHU (VASHTI) [address] [facility] [place] [address] * (ABNORMAL) Lipase (07/20/2021 12:35 PM CDT) Pathologist [facility] Lipase 7(L) 10 - 99 Units/L [facility] (VASHTI) Blood 07/20/2021 12:3 5 PM CDT 07/20/2021 12:42 PM CDT Tavo Ochoa MD LAB BLOOD ORDERABLES Fi nal Result Performing Organization Address City/[facility]/ZIP Co de Phone Number TOMY SAHU (BEAUFORT) 1 [facility] [place] [address] * (ABNORMAL) Sepsis Lactate w/ Reflex (07/20/2021 12:35 PM CDT) [facility] Sepsis Lactate 3.2(H) 0.7 - 2.0 mmol/L BANNERTOSHA SAHU (VASHTI) Blood 07/20/2021 12:3 5 PM CDT 07/20/2021 12:42 PM CDT Tavo Ochoa MD LAB BLOOD ORDERABLES Fi nal Result Performing Organization Address [facility]/ZIP Co de Phone Number TOMY SAHU (BEAUFORT) [address] [facility] [place] [address] * (ABNORMAL) CBC with auto differential (07/20/2021 12:35 PM CDT) [facility] WBC 13.9(H) 3.8 - 9.9 K/cumm [facility] ([place]) Hgb 14.1 11.9 - 15.5 g/dL [facility] ([place]) Hct 45.2 35.6 - 45.5 % [facility] ([place]) Plt 398 150 - 400 K/cumm [facility] ([place]) MPV 9.3 9.1 - 12.3 fL [facility] ([place]) RBC 5.48(H) 3.90 - 5.20 M/cumm [facility] ([place]) MCV 82.5 81.3 - 96.4 fL [facility] ([place]) MCH 25.7(L) 27.1 - 33.3 pg [facility] ([place]) MCHC 31.2(L) 32.3 - 35.7 g/dL [facility] ([place]) RDW CV 17.0(H) 11.1 - 14.9 % [facility] ([place]) RDW SD 50.5(H) 35.7 - 48.1 fL [facility] ([place]HTI) NRBC abs 0.00 0.00 - 0.01 K/cumm [facility] ([place]I) Blood 07/20/2021 12:3 5 PM CDT 07/20/2021 12:42 PM CDT us Tavo Ochoa MD LAB BLOOD ORDERABLES Fi nal Result [facility] (VASHTI) 1 [facility] Department [place] [address] * (ABNORMAL) Comprehensive metabolic panel (07/20/2021 12:35 PM CDT) Sodium 142 135 - 145 mmol/L [facility] ([place]ASHTI) Potassium, pl 5.4(H) 3.3 - 4.9 mmol/L [facility] ([place]ASHTI) Chloride 103 97 - 110 mmol/L [facility] ([place]I) CO2 12(L) 22 - 32 mmol/L [facility] ([place]HTI) Anion gap 26(H) 2 - 15 mmol/L [facility] ([place]ASHTI) BUN 19 8 - 25 mg/dL [facility] ([place]HTI) Creatinine 0.74 0.60 - 1.10 mg/dL [facility] ([place]ASHTI) Glucose 370(H) 70 - 199 mg/dL [facility] (VASHTI) Comment: Interpretive Data Fasting [...] interpretive data was last revised 2017. Calcium 10.2 8.5 - 10.3 mg/dL [facility] ([place]I) Bilirubin, total 0.7 0.1 - 1.2 mg/dL [facility] ([place]) Protein, pl 8.1 6.5 - 8.5 g/dL [facility] ([place]) Albumin 4.6 3.5 - 5.0 g/dL [facility] ([place]) Alk phos 110 40 - 130 Units/L [facility] ([place]) ALT 20 7 - 45 Units/L [facility] ([place]) AST 22 10 - 45 Units/L [facility] ([place]ASHTI) Comment:Slightly Hemolyzed S pecimen Blood 07/20/2021 12:3 5 PM CDT 07/20/2021 12:42 PM CDT us Tavo Ochoa MD LAB BLOOD ORDERABLES Fi nal Result TOMY SAHU (VASHTI) 1 [facility] Department of Laboratories [place], [place] [id number] documented in this encounter Visit Diagnoses Diagnosis Diabetic ketoacidosis without coma associated with type 1 diabetes mellitus (CMS/HCC) (HCC)- Primary Diabetic ketoacidosis without coma associated with type 1 diabetes mellitus (CMS/HCC) (HCC) Diabetic ketoacidosis with coma associated with type 1 diabetes mellitus (CMS/HCC) (HCC) documented in this encounter Admitting Diagnoses Diagnosis Diabetic ketoacidosis without coma associated with type 1 diabetes mellitus (CMS/HCC) (HCC) documented in this encounter Administered Medications Inactive Administered Medications - up to 3 most recent administrations Medication Order MAR Action Action Date Dose Rate Site acetaminophen (TYLENOL) tablet 650 mg 650 mg, oral, Every 4 hours PRN, 1st line for pain, fever, Starting on 07/20/21 at 1524 bisacodyl EC (DULCOLAX EC) tablet 10 mg 10 mg, oral, Daily PRN, constipation, If no results 24 hours after milk of magnesia, Starting on Wed07/23/21 at 0038, Do not crush, chew, cut, dissolve, open or otherwise manipulate tablet/capsule. dextrose (D10W) 10% bolus 250 mL 250 mL, intravenous, at 1,000 mL/hr, Administer over 15 Minutes, Every 15 min PRN, blood glucose less than 70 mg/dL and UNABLE to swallow/take PO glucose/juice., Starting on Wed07/22/21 at 0818, After treatment for hypoglycemia, recheck BG followed by treatment every 15 minutes until the BG is greater than 100 mg/dL. Then check BG 1 hour post treatment. If BG is less than 100 mg/dL, repeat Q15 minute BG checks and treatment. Call MD for each episode of hypoglycemia., Indications: hypoglycemic disorderIndications:hypoglyce lakes[place]ia disorder dextrose (GLUTOSE) 40 % gel 15 g 15 g, oral, Every 15 min PRN, low blood sugar, blood glucose less than 70 mg/dL, Starting on Wed07/22/21 at 0818, If patient is alert and able to [...] Call MD for each episode of hypoglycemia. PRECIPITATOR OPERATOR STATES GLUTOSE-15 CONTAINS GLUCOSE 40% W/W (50% W/V), Indications: hypoglycemic disorderIndications:hypoglyce lakes[place]ia disorder dextrose 5% and sodium chloride 0.45% infusion (premix) 50 mL/hr, intravenous, Continuous, Starting on Wed07/20/21 at 1600 New Bag 07/22/2021 8:15 PM CDT 50 mL/hr 50 mL/hr Rate/Dose Change 07/22/2021 10:10 AM CDT 50 mL/hr 50 mL/ hr New Bag 07/22/2021 6:33 AM CDT 125 mL/hr 125 mL/hr dimenhyDRINATE (DRAMAMINE) tablet 25 mg 25 mg, oral, 4 times daily PRN, nausea, Starting on Wed07/21/21 at 0824, Indications: NauseaIndications:Nausea Given 07/21/2021 12:45 PM CDT 25 mg enoxaparin (LOVENOX) syringe 40 mg 40 mg, subcutaneous, Daily (for enoxaparin), First dose on Wed07/20/21 at 2100, Indications: Deep Vein Thrombosis PreventionIndications:Deep Vein Thrombosis Prevention famotidine (PEPCID) injection 20 mg 20 mg, intravenous, Administer over 2 Minutes, Every 12 hours scheduled, First dose on Wed07/20/21 at 2100, Indications: Prevention of Stress UlcerIndications:Prevention of Stress Ulcer Given 07/22/2021 9:46 PM CDT 20 mg Given 07/22/2021 9:10 AM CDT 20 mg Given 07/21/2021 8:19 AM CDT 20 mg glucagon injection 1 mg 1 mg, intramuscular, Every 30 min PRN, low blood sugar, blood glucose less than 70 mg/dL AND no IV access AND unable to take PO glucose/juice., Starting on Wed07/22/21 at 0818, After Glucagon is administered, position patient on [...] unit/mL (3 mL) pen injection 10 Units 10 Units, subcutaneous, Every 12 hours scheduled, First dose on Wed07/22/21 at 0915, Attach new pen needle required for each administration. Each new pen needle must be primed with 2 units prior to administration. Do not mix with other insulins. Given 07/23/2021 9:10 AM CDT 10 Units Right Upper Arm Given 07/22/2021 9:52 PM CDT 10 Units Le ft Upper Abdomen Given 07/22/2021 9:19 AM CDT 10 Units Le ft Upper Arm insulin lispro (HumaLOG, ADMELOG) 100 unit/mL pen injection 0-10 Units 0-10 Units, subcutaneous, 3 times daily with meals, First dose on Wed07/22/21 at 1200, Blood glucose mg/dL: 149 or less: No insulin 150-199: add 2 unit 200-249: add 4 units 250-299: add 6 units 300-349: add 8 units and notify physician for adjustment of insulin orders. 350-399: add 10 units and notify physician for adjustment of insulin orders. Over 400: Notify physician for adjustment of insulin orders. Do NOT hold for NPO Status Attach new pen needle required for each administration. Each new pen needle must be primed with 2 units prior to administration., Indications: Diabetes MellitusIndications:Diabetes Mellitus Given 07/23/2021 12:11 PM CDT 2 Units Left Upper Arm Given 07/23/2021 9:08 AM CDT 4 Units Ri ght Upper Arm Given 07/22/2021 5:26 PM CDT 4 Units Le ft Upper Arm insulin lispro (HumaLOG, ADMELOG) 100 unit/mL pen injection 0-5 Units 0-5 Units, subcutaneous, Nightly, First dose on Wed07/22/21 at 2100, Blood glucose mg/dL: 149 or less: No [...] administration., Indications: Diabetes MellitusIndications:Diab etes Mellitus Given 07/22/2021 9:51 PM CDT 3 Units Right Lower Abdomen insulin regular (HumuLIN R, NovoLIN R) 100 unit/mL injection 10 Units 10 Units, intravenous, Once, On Wed07/20/21 at 1213, For 1 dose Given 07/20/2021 12:47 PM CDT 10 Units insulin regular in 0.9% sodium chloride (MYXREDLIN) 100 unit/100 mL (1 unit/mL) infusion (premix) 0-30 Units/hr (0-30 mL/hr), 1 units/mL, intravenous, Titrated, Starting on Wed07/20/21 at 1325, Until Wed07/20/21 at 1523, Indications: Hyperglycemia, Desired Range (mg/dL): 130-180 general patients, Multiplier: 0.01, NON-WEIGHT BASED DOSING Adjust rate per GlucoStabilizer program for dka order When new IV tubing is used, completely prime the tubing. Once primed, waste an additional 20 ml of insulin infusion using the IV pump prior to connecting to patient., RoutineIndications:Hyper glycemia Rate/Dose Verify 07/20/2021 3:20 PM CDT 2.5 Units/hr 2.5 mL/hr New Bag 07/20/2021 2:24 PM CDT 2.5 Units/hr 2.5 mL/hr insulin regular in 0.9% sodium chloride (MYXREDLIN) 100 unit/100 mL (1 unit/mL) infusion (premix) 0-30 Units/hr (0-30 mL/hr), 1 units/mL, intravenous, Titrated, Starting on Wed07/20/21 at 1600, Until Wed07/20/21 at 1701, Indications: Hyperglycemia, Desired Range (mg/dL): 130-180 general patients, Multiplier: 0.02, NON-WEIGHT BASED DOSING Adjust rate per GlucoStabilizer program for dka order When new IV tubing is used, completely prime the tubing. Once primed, waste an additional 20 ml of insulin infusion using the IV pump prior to connecting to patient., RoutineIndications:Hyperglyc emia Rate/Dose Change 07/20/2021 4:25 PM CDT 1.8 Units/hr 1.8 mL/hr Restarted 07/20/2021 4:13 PM CDT 2.5 Units/hr 2.5 mL/hr Rate/Dose Verify 07/20/2021 4:12 PM CDT 2.5 Units/hr 2.5 m L/hr insulin regular in 0.9% sodium chloride (MYXREDLIN) 100 unit/100 mL (1 unit/mL) infusion (premix) 0-30 Units/hr (0-30 mL/hr), 1 units/mL, intravenous, Titrated, Starting on Wed07/20/21 at 1745, Until Wed07/22/21 at 0818, Indications: Hyperglycemia, Desired Range (mg/dL): 130-180 general patients, Multiplier: 0.01, NON-WEIGHT BASED DOSING Adjust rate per GlucoStabilizer program for dka order When new IV tubing is used, completely prime the tubing. Once primed, waste an additional 20 ml of insulin infusion using the IV pump prior to connecting to patient., RoutineIndications:Hyperglycem ia Rate/Dose Change 07/22/2021 8:54 AM CDT 1 Units/hr 1 mL/hr Rate/Dose Change 07/22/2021 7:46 AM CDT 2.5 Units/hr 2.5 m L/hr Rate/Dose Change 07/22/2021 6:45 AM CDT 2.8 Units/hr 2.8 m L/hr magnesium hydroxide (MILK OF MAGNESIA) 80 mg/mL (33.3 mg/mL as elemental magnesium) oral suspension 30 mL 30 mL, oral, Daily PRN, constipation, Starting on Wed07/23/21 at 0038 mineral oil (FLEET MINERAL OIL) enema 1 enema 1 enema, rectal, Daily PRN, constipation, if no results 24 hours after bisacodyl, Starting on Wed07/23/21 at 0038, Indications: constipationIndication s:constipation ondansetron (ZOFRAN) injection 4 mg 4 mg, intravenous, Administer over 2 Minutes, Every 6 hours PRN, nausea, vomiting, if not tolerating PO, Starting on Wed07/20/21 at 1526, Indications: Nausea and VomitingIndications:Na usea and Vomiting ondansetron ODT (ZOFRAN-ODT) disintegrating tablet 4 mg 4 mg, oral, Every 4 hours PRN, nausea, vomiting, Starting on Wed07/20/21 at 1526, Indications: Nausea and VomitingIndications:Na usea and Vomiting scopolamine patch 72 hour 1 patch 1 patch, transdermal, Administer over 72 Hours, Once, On 07/21/21 at 0915, For 1 dose, Indications: Prevention of Post-Operative Nausea and VomitingIndications:Pr evention of Post-Operative Nausea and Vomiting Medication Applied 07/21/2021 9:42 AM CDT 1 patch Behind Left Ear sodium chloride 0.9% bolus 1,000 mL 1,000 mL, intravenous, at 1,000 mL/hr, Administer over 1 Hours, Once, On Wed07/20/21 at 1213, For 1 dose New Bag 07/20/2021 12:47 PM CDT 1,000 mL 1000 mL/hr sodium chloride 0.9% bolus 1,000 mL 1,000 mL, intravenous, at 1,000 mL/hr, Administer over 1 Hours, Once, On 07/20/21 at 1329, For 1 dose New Bag 07/20/2021 2:21 PM CDT 1,000 mL 1000 mL/hr trimethobenzamide (TIGAN) injection 200 mg 200 mg, intramuscular, Every 6 hours PRN, nausea, vomiting, Starting on 07/21/21 at 0822 documented in this encounter Discontinued Medications Medication Sig Discontinue Reason Start Date End Da te insulin glargine (LANTUS, BASAGLAR, SEMGLEE) 100 unit/mL (3 mL) pen for injection Inject 15 Units under the skin nightly Reorder 07/23/2021 documented as of this encounter Active and Recently Administered Medications Times are shown in CDT. Scheduled Medication Order 07/21/2021 07/22/2021 07/23/2021 enoxaparin (LOVENOX) syringe 40 mg 40 mg, subcutaneous, Daily (for enoxaparin), First dose on 07/20/21 at 2100, Indications: Deep Vein Thrombosis Prevention 2008 (Not Given - Provider: Minerva Shankar RN - Reason: Patient/family refused) 2145 (Not Given - Provider: Shahana Thompson RN - Reason: Patient/family refused) famotidine (PEPCID) injection 20 mg 20 mg, intravenous, Administer over 2 Minutes, Every 12 hours scheduled, First dose on 07/20/21 at 2100, Indications: Prevention of Stress Ulcer 0819 (Given - Provider: Coleman Schilling, MARY)2009 (Not Given - Provider: Minerva Shankar RN - Reason: Patient/family refused) 909 (Given - Provider: Sherif Blanco, MARY)2145 (Given - Provider: Shahana Thompson, MARY) 906 (Not Given - Provider: Michelle Reeves RN - Reason: Patient/family refused) insulin glargine (LANTUS, BASAGLAR, SEMGLEE) 100 unit/mL (3 mL) pen injection 10 Units 10 Units, subcutaneous, Every 12 hours scheduled, First dose on Wed07/22/21 at 0915, Attach new pen needle required for each administration. Each new pen needle must be primed with 2 units prior to administration. Do not mix with other insulins. 09 (Given - Provider: Sherif Blanco, RN)2151 (Given - Provider: Shahana Thompson, MARY) 0910 (Given - Provider: Michelle Reeves, MARY) insulin lispro (HumaLOG, ADMELOG) 100 unit/mL pen injection 0-10 Units 0-10 Units, subcutaneous, 3 times daily with meals, First dose on Wed07/22/21 at 1200, Blood glucose mg/dL: 149 or less: No insulin 150-199: add 2 unit 200-249: add 4 units 250-299: add 6 units 300-349: add 8 units and notify physician for adjustment of insulin orders. 350-399: add 10 units and notify physician for adjustment of insulin orders. Over 400: Notify physician for adjustment of insulin orders. Do NOT hold for NPO Status Attach new pen needle required for each administration. Each new pen needle must be primed with 2 units prior to administration., Indications: Diabetes Mellitus 1351 (Given - Provider: Wendy Amato RN)1726 (Given - Provider: Wendy Amato RN) 0908 (Given - Provider: Michelle Reeves, MARY)1211 (Given - Provider: Michelle Reeves, MARY) insulin lispro (HumaLOG, ADMELOG) 100 unit/mL pen injection 0-5 Units 0-5 Units, subcutaneous, Nightly, First dose on Wed07/22/21 at 2100, Blood glucose mg/dL: 149 or less: No [...] units prior to administration., Indications: Diabetes Mellitus 215 (Given - Provider: Shahana Thompson, MARY) potassium chloride (KLOR-CON) packet 40 mEq 40 mEq, feeding tube, Once, On Wed07/22/21 at 1245, For 1 dose, Dissolve one packet in at least 120 mL of cold water or other beverage prior to administration. 1355 (Not Given - Provider: Wendy Amato RN - Reason: Patient/family refused) scopolamine patch 72 hour 1 patch 1 patch, transdermal, Administer over 72 Hours, Once, On Wed07/21/21 at 0915, For 1 dose, Indications: Prevention of Post-Operative Nausea and Vomiting 0942 (Medication Applied - Provider: Coleman Schilling, MARY) 1636 (Due: Medication Removed - Provider: Automatic Discharge Provider - Comment: Time automatically adjusted from order being discontinued) Continuous Medication Order 07/21/2021 07/22/2021 07/23/2021 dextrose 5% and sodium chloride 0.45% infusion (premix) 50 mL/hr, intravenous, Continuous, Starting on Wed07/20/21 at 1600 0100 (New Bag - Provider: Dorian Fuller RN)0737 (New Bag - Provider: Coleman Schilling, MARY) 0633 (New Bag - Provider: Minerva Shankar, MARY)101 (Rate/Dose Change - Provider: Sherif Blanco, MARY)2014 (New Bag - Provider: Shahana Thompson, MARY) 2035 (Due: Stopped) insulin regular in 0.9% sodium chloride (MYXREDLIN) 100 unit/100 mL (1 unit/mL) infusion (premix) (CANCELED) 0-30 Units/hr (0-30 mL/hr), 1 units/mL, intravenous, Titrated, Starting on Wed07/20/21 at 1745, Until Wed07/22/21 at 0818, Indications: Hyperglycemia, Desired Range (mg/dL): 130-180 general patients, Multiplier: 0.01, NON-WEIGHT BASED DOSING Adjust rate per GlucoStabilizer program for dka order When new IV tubing is used, completely prime the tubing. Once primed, waste an additional 20 ml of insulin infusion using the IV pump prior to connecting to patient., Routine 0031 (Rate/Dose Change - Provider: Dorian Fuller RN)0131 (Rate/Dose Change - Provider: Dorian Fuller RN)0234 (Rate/Dose Change - Provider: Dorian Fuller RN)0333 (Rate/Dose Change - Provider: Dorian Fuller RN)0435 (Rate/Dose Change - Provider: Dorian Fuller RN)0530 (Rate/Dose Change - Provider: Dorian Fuller RN)0633 (Rate/Dose Change - Provider: Dorian Fuller RN)0735 (Rate/Dose Change - Provider: Coleman Schilling RN)0838 (Rate/Dose Change - Provider: Coleman Schilling RN)0942 (Rate/Dose Verify - Provider: Coleman Schilling RN)0945 (Rate/Dose Change - Provider: Coleman Schilling RN)1045 (Rate/Dose Change - Provider: Coleman Schilling RN)1139 (Rate/Dose Change - Provider: Coleman Schilling RN)1244 (Rate/Dose Verify - Provider: Coleman Schilling RN)1245 (Rate/Dose Verify - Provider: Coleman Schilling RN)1246 (Rate/Dose Verify - Provider: Coleman Schilling RN)1247 (Rate/Dose Change - Provider: Coleman Schilling RN)1348 (Rate/Dose Change - Provider: Coleman Schilling RN)1456 (Rate/Dose Change - Provider: Coleman Schilling RN)1600 (Rate/Dose Change - Provider: Coleman Schilling RN)1703 (Rate/Dose Change - Provider: Coleman Schilling RN)1800 (Rate/Dose Change - Provider: Coleman Schilling RN)1915 (Rate/Dose Change - Provider: Minerva Shankar RN)2013 (Rate/Dose Change - Provider: Minerva Shankar RN)2115 (New Bag - Provider: Minerva Shankar RN)2120 (Rate/Dose Change - Provider: Minerva Shankar RN)2223 (Rate/Dose Change - Provider: Minerva Shankar RN)2326 (Rate/Dose Change - Provider: Minerva Shankar RN) 0130 (Rate/Dose Change - Provider: Minerva Shankar RN)0233 (Rate/Dose Change - Provider: Minerva Shankar RN)0337 (Rate/Dose Change - Provider: Minerva Shankar RN)0453 (Rate/Dose Change - Provider: Minerva Shankar RN)0600 (Rate/Dose Change - Provider: Minerva Shankar RN)0645 (Rate/Dose Change - Provider: Minerva Shankar RN)0746 (Rate/Dose Change - Provider: Sherif Blanco RN)0853 (Stopped - Provider: Sherif Blanco RN)0854 (Rate/Dose Change - Provider: Sherif Blanco RN)0906 (Stopped - Provider: Sherif Blanco RN) PRN Medication Order 07/21/2021 07/22/2021 07/23/2021 acetaminophen (TYLENOL) tablet 650 mg 650 mg, oral, Every 4 hours PRN, 1st line for pain, fever, Starting on Wed07/20/21 at 1524 bisacodyl EC (DULCOLAX EC) tablet 10 mg 10 mg, oral, Daily PRN, constipation, If no results 24 hours after milk of magnesia, Starting on Wed07/23/21 at 0038, Do not crush, chew, cut, dissolve, open or otherwise manipulate tablet/capsule. dextrose (D10W) 10% bolus 250 mL(Linked Group 1) 250 mL, intravenous, at 1,000 mL/hr, Administer over 15 Minutes, Every 15 min PRN, blood glucose less than 70 mg/dL and UNABLE to swallow/take PO glucose/juice., Starting on Wed07/22/21 at 0818, After treatment for hypoglycemia, recheck BG followed by treatment every 15 minutes until the BG is greater than 100 mg/dL. Then check BG 1 hour post treatment. If BG is less than 100 mg/dL, repeat Q15 minute BG checks and treatment. Call MD for each episode of hypoglycemia., Indications: hypoglycemic disorder dextrose (GLUTOSE) 40 % gel 15 g(Linked Group 1) 15 g, oral, Every 15 min PRN, low blood sugar, blood glucose less than 70 mg/dL, Starting on Wed07/22/21 at 0818, If patient is alert and able to [...] Call MD for each episode of hypoglycemia. PRECIPITATOR OPERATOR STATES GLUTOSE-15 CONTAINS GLUCOSE 40% W/W (50% W/V), Indications: hypoglycemic disorder dimenhyDRINATE (DRAMAMINE) tablet 25 mg 25 mg, oral, 4 times daily PRN, nausea, Starting on Wed07/21/21 at 0824, Indications: Nausea 1137 (Not Given - Provider: Coleman Schilling RN - Reason: Patient/family refused)1245 (Given - Provider: Coleman Schilling, MARY) glucagon injection 1 mg 1 mg, intramuscular, Every 30 min PRN, low blood sugar, blood glucose less than 70 mg/dL AND no IV access AND unable to take PO glucose/juice., Starting on Wed07/22/21 at 0818, After Glucagon is administered, position patient on [...] mL, oral, Daily PRN, constipation, Starting on Wed07/23/21 at 0038 mineral oil (FLEET MINERAL OIL) enema 1 enema 1 enema, rectal, Daily PRN, constipation, if no results 24 hours after bisacodyl, Starting on Wed07/23/21 at 0038, Indications: constipation ondansetron (ZOFRAN) injection 4 mg(Linked Group 2) 4 mg, intravenous, Administer over 2 Minutes, Every 6 hours PRN, nausea, vomiting, if not tolerating PO, Starting on Wed07/20/21 at 1526, Indications: Nausea and Vomiting ondansetron ODT (ZOFRAN-ODT) disintegrating tablet 4 mg(Linked Group 2) 4 mg, oral, Every 4 hours PRN, nausea, vomiting, Starting on Wed07/20/21 at 1526, Indications: Nausea and Vomiting trimethobenzamide (TIGAN) injection 200 mg 200 mg, intramuscular, Every 6 hours PRN, nausea, vomiting, Starting on Wed07/21/21 at 0822 Linked Groups Order Group 1: dextrose (GLUTOSE) 40 % gel 15 gJump to med 15 g, oral, Every 15 min PRN, low blood sugar, blood glucose less than 70 mg/dL, Starting on Wed07/22/21 at 0818, If patient is alert and able to [...] Call MD for each episode of hypoglycemia. PRECIPITATOR OPERATOR STATES GLUTOSE-15 CONTAINS GLUCOSE 40% W/W (50% W/V), Indications: hypoglycemic disorder Or dextrose (D10W) 10% bolus 250 mLJump to med 250 mL, intravenous, at 1,000 mL/hr, Administer over 15 Minutes, Every 15 min PRN, blood glucose less than 70 mg/dL and UNABLE to swallow/take PO glucose/juice., Starting on Wed07/22/21 at 0818, After treatment for hypoglycemia, recheck BG followed [...] mgJump to med 4 mg, oral, Every 4 hours PRN, nausea, vomiting, Starting on Wed07/20/21 at 1526, Indications: Nausea and Vomiting Or ondansetron (ZOFRAN) injection 4 mgJump to med 4 mg, intravenous, Administer over 2 Minutes, Every 6 hours PRN, nausea, vomiting, if not tolerating PO, Starting on 07/20/21 at 1526, Indications: Nausea and Vomiting documented in this encounter Orders Medications Ordered That Evan ht Not Have Been Administered Count Last Ordered Date First Ordered Date bisacodyl EC (DULCOLAX EC) tablet 10 mg 1 0 07/23/2021 magnesium hydroxide (MILK OF MAGNESIA) 80 mg/mL (33.3 mg/mL as elemental magnesium) oral suspension 30 mL 1 07/23/2021 mineral oil (FLEET MINERAL O IL) enema 1 enema 1 07/23/2021 dextrose (D10W) 10% bolus 250 mL 1 07/23/19 dextrose (GLUTOSE) 40 % gel 15 g 1 07/23/19 glucagon injection 1 mg 1 07/22/2021 potassium chloride (KLOR-CON ) packet 40 mEq 1 07/22/2021 trimethobenzamide (TIGAN) injection 200 mg 1 07/21/2021 acetaminophen (TYLENOL) tablet 650 mg 1 dextrose (D10W) 10% bolus 1-500 mL 1 2021 enoxaparin (LOVENOX) syringe 40 mg 1 2021 HYDROmorphone (DILAUDID) injection 0.5 mg 1 07/20/2021 insulin regular bolus from bag 1-10 Units 1 07/20/2021 metoclopramide (REGLAN) injection 10 mg 1 0 07/20/2021 ondansetron (ZOFRAN) injection 4 mg 3 07/20 ondansetron ODT (ZOFRAN-ODT) disintegrating tablet 4 mg 2 07/20/2021 pantoprazole (PROTONIX) 40 m g/10 mL in sodium chloride 0.9% (premix) 40 mg 1 07/20/2021 Lab Orders Without Results Count Last Ordered D ate First Ordered Date POCT GLUCOSE DEVICE 1 07/23/2021 Diet Count Last Ordered Date First Orde red Date ADULT DISCHARGE DIET 1 07/23/2021 Nursing Count Last Ordered Date First Orde red Date DISCHARGE ACTIVITY 1 07/23/2021 DISCHARGE CALL PROVIDER 4 07/23/2021 FOLLOW UP WITH ESTABLISHED PROVIDER 1 07/23 CARDIO RESPIRATORY MONITORING 1 07/20/2021 CORE MEASURES Count Last Ordered Date First Ord ered Date REASON FOR NO VTE PROPHYLAXIS AT ADMISSION 1 07/20/2021 ADT Patient Update Count Last Ordered Date Firs t Ordered Date ED IP DECISION TO ADMIT 1 07/20/2021 documented in this encounter Care Teams Mail Order Sorter Relationship Specialty Start Date End Date No, Physician PCP - General 07/20/21 11/19/21 Warren Phillips MD Consulting Physician Gastroenterology 02/16/19 Miscellaneous, Not In File 07/23/21 documented as of this encounter
--- OUTSIDE RECORDS SUMMARY | 2024-05-10 18:37 | XMS_ITS | Encounter Summary ---
Author Organization [facility] Healthcare Address [address] [place] [address] Care Team Providers Care Higher Education Administrator Name Role Phone Warren Phillips MD Unavailable [phone] No, Physician Primary Care Provider [phone] Miscellaneous, Not In File Unavailable Unava ilable Encounter Details Date Type Department Care Team (Late st Contact Info) Description 10/24/2021 8:01 AM CDT - 10/28/2021 5:59 PM CDT Hospital Encounter [facility] [address] [place] [address] Cody Case MD [address] [facility] [address] [place] [address] Augusto Salgado MD [address] [place] [address] Mann Paris Jr., MD [address] [place] [id number] Dominic Camara MD [address] [place] [address] Sanjuanita Enamorado MD 1 [facility] [address] [place] [address] Winter Pickering DO [address] [place] [address] Farida Chaney MD 4 [facility] [address] [place] [address] Diabetic ketoacidosis without coma associated with type 1 diabetes mellitus (CMS/HCC) (HCC) (Primary Dx); Acute renal failure, unspecified acute renal failure type (HCC); Dehydration, severe Discharge Disposition: Left Against Medical Advice Social [...] on file 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[employer] Gender Identity Not on file Sexual Orientation Not on file documented as of this encounter Last Filed Vital Signs Vital Sign Reading Time Taken Comments Blood Pressure 120/68 10/28/2021 3:40 PM CDT Pulse 114 10/28/2021 3:40 PM CDT Temperature 36.4 ??C (97.5 ??F) 10/28/2021 3:40 PM CD T Respiratory Rate 18 10/28/2021 3:40 PM CDT Oxygen Saturation 99% 10/28/2021 3:40 PM CDT Inhaled Oxygen Concentration - - Weight 75.7 kg (166 lb 14.2 oz) 10/25/2021 4:00 AM CDT Height 157.5 cm (5' 2 ) 10/24/2021 12:0 0 PM CDT Body Mass Index 30.52 10/24/2021 12:00 PM CDT documented in this encounter Discharge Diagnoses Diagnosis Type 1 diabetes mellitus with ketoacidosis without coma (HCC) - TYPE 1 DIABETES MELLITUS WITH KETOACIDOSIS WITHOUT COMA Metabolic encephalopathy - METABOLIC ENCEPHALOPATHY Acute kidney failure, unspecified (HCC) - ACUTE KIDNEY FAILURE, UNSPECIFIED Acute kidney failure, unspecified Hyperosmolality and hypernatremia - HYPEROSMOLALITY AND HYPERNATREMIA Hyperosmolality and/or hypernatremia Thrombocytopenia, unspecified (HCC) - THROMBOCYTOPENIA, UNSPECIFIED Thrombocytopenia, unspecified Dehydration - DEHYDRATION 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 (HCC) - TYPE 1 DIABETES MELLITUS WITH DIABETIC AUTONOMIC (POLY)NEUROPATHY Depression, unspecified - DEPRESSION, UNSPECIFIED Gastroparesis - GASTROPARESIS Elevated white blood cell count, unspecified - ELEVATED WHITE BLOOD CELL COUNT, UNSPECIFIED Contact with and (suspected) exposure to covid-19 - CONTACT WITH AND (SUSPECTED) EXPOSURE TO COVID-19 detention (current) use of insulin (HCC) - [facility] (CURRENT) USE OF INSULIN Patient's noncompliance with other medical treatment and regimen - PATIENT'S NONCOMPLIANCE WITH OTHER MEDICAL TREATMENT AND REGIMEN documented in this encounter Discharge Summaries * Leroy Bustamante MD - 10/28/2021 5:59 PM CDT Inpatient Discharge Summary Patient Name - Karina Fuchs Patient Age - 26 yrs Patient - [id number] [facility] - [id number] Document Creation Date: 10/28/2021 Admitting Provider, : Augusto Bai MD Discharge Provider, : Mann Paris Jr., MD Primary Care Physician at Discharge: Deena, Physician [phone] Admission Date: 10/24/2021 Discharge Date/time: 10/28/2021 Admission Location: [facility] LOS - LOS: 4 days DETAILS OF HOSPITAL STAY Hospital Problems/Diagnoses Active Problems: Depression Dehydration, severe Uncontrolled type 1 diabetes mellitus with hyperglycemia (CMS/HCC) (HCC) Diabetic gastroparesis (CMS/HCC) (HCC) Intractable vomiting with nausea Thrombocytopenia (CMS/HCC) (HCC) Reason for Hospitalization: Chief complaint:: 26 y.o. female with history of diabetes type 1, gastroparesis, depression, repeated episodes of DKA, who presented with vomiting and agitation. HPI: On arrival patient was unable to provide history. Per EMS patient deeply somnolent flailing about and had markedly dry mucous membranes. On arrival she responded to deep pain only. History from family report that the patient had nausea and vomiting 2 days prior to arrival but refused to come to theER. In the ER patient agitated ant treated wit one dose of ativan. She had a pH of 6.98 with a pCO2 of 10 and total CO2 of less than 3. Her glucose was 868. Patient was treated with IV fluids and started on an insulin drip. The patient was then transferred to the ICU for further treatment. In the ICU patient was continue on D5/NS and insulin drip. She was also noted to have an USMAN likelycaused by dehydration in the setting of DKA. Patient was treated by insulin protocol by gluco stabilizer software. There was not found source of infection. Patient remained in ICU for 2 days as ketoacidosis resolved patient transferred to medicine floor on subcutaneous insulin Hospital Course: On the medical floor: Uncontrolled??type 1 diabetes with hyperglycemia patiient started on lantus and lispro TID with SS -patient's glucose still somewhat elevated will increased??long-acting insulin to 25 units and t.i.d. lispro to 8 units -Patient neonatal nurse is??Naomi Sanches MD??at [facility], left message to schedule ?hospital follow up and possible insulin??pump placement.?? -insulin titrated while patient admitted ?? Thrombocytopenia -decrease in platelets -10/28- >50% decrease in 4 days after starting lovenox- concern for HIT. - Ts score of 4- intermediate probability 10% risk - HIT panel pending - Patient left AMA prior to results-prior to leaving informed of risk associated if + and she expressed understanding. ?? Diabetic gastroparesis/intractable vomiting with nausea?? -added metoclopramide ??10 mg TID prn -ondansetron 4 mg prm ?? Depression -?Zoloft 50 mg q.d. Discharge Details Physical Exam at Discharge: Discharge Condition: good Pulse: 114 Resp: 18 BP: 120/68 Temp: 36.4 ??C (97.5 ??F) Weight: 75.7 kg (166 lb 14.2 oz) Pertinent Exam Findings at Discharge: General: NAD Eyes: EOMI, sclare non icteric Neck: supple no enlarged cervical LN Pharynx: No gross oral lesion, tongue midline, mucosa moist Lungs CTA Heart: [id number], no significant murmur or gallop Abd: +BS, Non Tender, Non distended, No gross hepatomegaly Lower Ext: No gross edema, pedal artery pulses are palpable bilaterally Neuro:alert and oriented, moves all extremities Musculoskeletal: no gross joint erythema, edema, tenderness Skin: Warm and dry Discharge Disposition: Left Against Medical Advice Code Status at Discharge: Prior Active Issues & Recommended Plan for Follow-up: Follow up with neonatal nurse Naomi Sanches For DM care and possible pump placement Allergies: Patient has no known allergies. Discharge [...] Spent in Discharge Process: I have spent 20 minutes on discharge planning activities. Time spent was on patient left AMA Test Results Pending at Discharge (If Blank, None Found): Pending Labs Order Current Status HIT Antibodies with Reflex to Serotonin Release Assay (CESAR) In process Blood culture Blood Preliminary result Operative Procedures Performed (If Blank, None Found): Outpatient Follow-Up: Contact Information for Follow-ups Deena Physician Relationship: PCP - General Next Steps: Follow up Please schedule an appointment with the following provider(s): Deena Physician [phone] ANCILLARY INFORMATION Other Procedures & Diagnostic Tests: XR Chest 1 Vw Portable Result Date: 10/24/2021 EXAM DESCRIPTION: XR CHEST 1 VIEW REASON [...] 9:03 AM - Electronically signed by Ameya english M.D. RB: TORSTEN Report ID: [id number] Reading Location: [place] [address] Recent Labs: Recent Labs Lab Units 10/28/21 0649 10/26/21 0609 10/25/21 0455 WBC K/cumm 6.5 9.1 17.7* HEMOGLOBIN g/dL 12.7 10.8* 11.6* HEMATOCRIT % 39.5 32.3* 35.1* PLATELETS K/cumm 134* 151 242 Recent Labs Lab Units 10/28/21 0649 10/26/21 0609 10/25/21 0455 WBC K/cumm 6.5 9.1 17.7* HEMOGLOBIN g/dL 12.7 10.8* 11.6* HEMATOCRIT % 39.5 32.3* 35.1* PLATELETS K/cumm 134* 151 242 NEUTROS PCT % 66.0 66.6 83.6 LYMPHS PCT % 23.8 19.9 6.7 MONOS PCT % 9.2 13.0 8.9 EOS PCT % 0.2 0.0 0.0 Recent Labs Lab Units 10/28/21 1739 10/28/21 0746 10/28/21 0649 10/27/21 0729 10/27/21 0526 10/26/21 0748 10/26/21 0609 10/25/21 0501 10/25/21 0455 10/25/21 0017 10/25/21 0000 SODIUM mmol/L -- -- 137 -- 140 -- 144 < > 155* -- 152* POTASSIUM PLASMA mmol/L -- -- 4.4 -- 3.6 -- 3.5 < > 3.8 -- 4.0 CHLORIDE mmol/L -- -- 99 -- 103 -- 107 < > 125* -- 122* CO2 mmol/L -- -- 23 -- 27 -- 26 < > 20* -- 19* BUN SERUM mg/dL -- -- 14 -- 9 -- 8 < > 29* -- 35* CREATININE mg/dL -- -- 0.50* -- 0.30* -- 0.36* < > 0.73 -- 0.86 VEU-VXS-MESRISR mL/min/1.73 m2 -- -- 133 -- 151 -- 144 < > 117 -- 96 GLUCOSE mg/dL -- -- 298* -- 253* -- 200* < > 166 -- 136 POC GLUCOSE MONITOR mg/dL 67* < > -- < > -- < > -- < > -- < > -- CALCIUM mg/dL -- -- 9.0 -- 8.5 -- 7.9* < > 8.9 -- 8.9 ALBUMIN g/dL -- -- 3.7 -- 3.3* -- 3.2* -- 3.6 -- 3.8 PHOSPHORUS PLASMA mg/dL -- -- 2.7 -- -- -- -- -- 1.1* -- 1.8* < > = values in this interval not displayed. Recent Labs Lab Units 10/28/21 1739 10/28/21 1713 10/28/21 1645 10/28/21 0746 10/28/21 0649 10/27/21 0729 10/27/21 0526 10/26/21 0748 10/26/21 0609 SODIUM mmol/L -- -- -- -- 137 -- 140 -- 144 POTASSIUM PLASMA mmol/L -- -- -- -- 4.4 -- 3.6 -- 3.5 CHLORIDE mmol/L -- -- -- -- 99 -- 103 -- 107 CO2 mmol/L -- -- -- -- 23 -- 27 -- 26 ANIONGAP mmol/L -- -- -- -- 15 -- 10 -- 11 GLUCOSE mg/dL -- -- -- -- 298* -- 253* -- 200* POC GLUCOSE MONITOR mg/dL 67* 75 40* < > -- < > -- < > -- BUN SERUM mg/dL -- -- -- -- 14 -- 9 -- 8 CREATININE mg/dL -- -- -- -- 0.50* -- 0.30* -- 0.36* CALCIUM mg/dL -- -- -- -- 9.0 -- 8.5 -- 7.9* ALBUMIN g/dL -- -- -- -- 3.7 -- 3.3* -- 3.2* ALK PHOS Units/L -- -- -- -- 92 -- 88 -- 86 ALT Units/L -- -- -- -- 20 -- 17 -- 17 AST Units/L -- -- -- -- 16 -- 16 -- 22 BILIRUBIN TOTAL mg/dL -- -- -- -- 0.7 -- 0.8 -- 0.6 < > = values in this interval not displayed. Recent Labs Lab Units 10/28/21 0649 10/27/21 0526 10/26/21 0609 ALK PHOS Units/L 92 88 86 BILIRUBIN TOTAL mg/dL 0.7 0.8 0.6 TOTAL PROTEIN g/dL 6.5 5.7* 5.3* ALT Units/L 20 17 17 AST Units/L 16 16 22 Recent Labs Lab Units 10/28/21 0649 10/24/21 0908 MAGNESIUM mg/dL 1.9 3.5* Recent Labs Lab Units 10/24/21 0908 PROTIME (PT) sec 12.6 INR 1.2 Recent Labs Lab Units 10/24/21 0924 PH ART 6.98* PCO2 ART mmHg 10* PO2 ART mmHg 139* BASE EXC ART mmol/L -30 HCO3 ART (CALC) mmol/L <3* O2 SAT ART (CONNOR) % 98* Lab Results Component Value Date GLUCOSE 67 (L) 10/28/2021 GLUCOSE 75 10/28/2021 GLUCOSE 40 (Critical) 10/28/2021 Implant: Implants No active implants to display in this view. General Precautions (If Blank, None Found): Isolation Status: No active isolations Nutritional Status and in-house recommendations: Anticoagulation Indication: INR: 10/24/2021: 1.2 Warfarin Administrations (last 168 hours) None Oxygen Status: O2 Therapy for the past 12 hrs: O2 Therapy 10/28/21 1540 None (Room air) Wound Care Instructions Active LDAs (If Blank, None Found): Patient Emergency Contact: Primary Emergency Contact: Karen [...] ??? Tdap 12/11/2009, 09/09/2016 ??? Varicella 07/14/2010 Leroy Bustamante MD Cosigned by Mann Paris Jr., MD at 10/29/2021 4:55 PM CDT Associated attestation - Mann Paris Jr., MD - 10/29/2021 4:55 PM CDT I personally saw and examined the patient and discussed the case with the resident. I have reviewedthe resident's note and agree with the content and plan as written. Time spent on discharge: 36 minutes including time spent with patient prior to leaving AMA Mann Paris Jr., MD documented in this encounter Discharge Instructions * Discharge Instr - Diet* Brandee Suárez - 10/24/2021 12:24 PM CDT Continue to follow a Consistent [...] doctor for referral tooutpatient nutrition counseling. Call [facility] office at [phone] for questions about your diet. Additional resources available from the [employer] can be found at www.diabetes.org/nutrition [...] documented in this encounter Progress Notes * Leroy Bustamante MD - 10/28/2021 5:52 PM CDT General Medicine Daily Progress SUBJECTIVE Chief complaint of DM1/elevated glucose Interval History: Patient continues to have elevated glucose particularly in the morning. Will continue to titrate insulin dosing. She will follow up next week after discharge with her neonatal nurse. Decrease in platelets while patient is on Lovenox, HIT panel ordered to rule out HIT. Patient eagerto be discharged. Informed of possible risks. OBJECTIVE Vitals: 24hr Min/Max: Temp Min: 36.1 ??C (97 ??F) Max: 37.1 ??C (98.8 ??F) Pulse Min: 65 Max: 114 BP Min: 120/68 Max: 146/92 Resp Min: 16 Max: 18 SpO2 Min: 98 % Max: 100 % Most Recent : Vitals: 10/28/21 1540 BP: 120/68 Pulse: 114 Resp: 18 Temp: 36.4 ??C (97.5 ??F) SpO2: 99% I/O last 2 completed shifts: In: 740 [P.O.:740] Out: - I/O this shift: In: 480 [P.O.:480] Out: - Physical Exam: General: NAD Eyes: EOMI, sclare non icteric Neck: supple no enlarged cervical LN Pharynx: No gross oral lesion, tongue midline, mucosa moist Lungs CTA Heart: [id number], no significant murmur or gallop Abd: +BS, Non Tender, Non distended, No gross hepatomegaly Lower Ext: No gross edema, pedal artery pulses are palpable bilaterally Neuro:alert and oriented, moves all extremities Musculoskeletal: no gross joint erythema, edema, tenderness Skin: Warm and dry Lab/Current Medication Review: Recent Results (from the past 24 hour(s)) POCT glucose Collection Time: 10/27/21 8:49 PM Result Value Ref Range Glucose, POC 110 (H) 71 - 98 mg/dL POCT glucose Collection Time: 10/28/21 2:05 AM Result Value Ref Range Glucose, POC 229 (H) 71 - 98 mg/dL Comprehensive metabolic panel Collection Time: 10/28/21 6:49 AM Result Value Ref Range Sodium 137 135 - 145 mmol/L Potassium, pl 4.4 3.3 - 4.9 mmol/L Chloride 99 97 - 110 mmol/L CO2 23 22 - 32 mmol/L Anion gap 15 2 - 15 mmol/L BUN 14 8 - 25 mg/dL Creatinine 0.50 (L) 0.60 - 1.10 mg/dL Glucose 298 (H) 70 - 199 mg/dL Calcium 9.0 8.5 - 10.3 mg/dL Bilirubin, total 0.7 0.1 - 1.2 mg/dL Protein, pl 6.5 6.5 - 8.5 g/dL Albumin 3.7 3.5 - 5.0 g/dL Alk phos 92 40 - 130 Units/L ALT 20 7 - 45 Units/L AST 16 10 - 45 Units/L Magnesium Collection Time: 10/28/21 6:49 AM Result Value Ref Range Magnesium 1.9 1.4 - 2.5 mg/dL Phosphorus Collection Time: 10/28/21 6:49 AM Result Value Ref Range Phosphorus, pl 2.7 2.3 - 4.5 mg/dL CBC with auto differential Collection Time: 10/28/21 6:49 AM Result Value Ref Range WBC 6.5 3.8 - 9.9 K/cumm Hgb 12.7 11.9 - 15.5 g/dL Hct 39.5 35.6 - 45.5 % Plt 134 (L) 150 - 400 K/cumm MPV 10.0 9.1 - 12.3 fL RBC 4.71 3.90 - 5.20 M/cumm MCV 83.9 81.3 - 96.4 fL MCH 27.0 (L) 27.1 - 33.3 pg MCHC 32.2 (L) 32.3 - 35.7 g/dL RDW CV 14.8 11.1 - 14.9 % RDW SD 45.2 35.7 - 48.1 fL NRBC abs 0.00 0.00 - 0.01 K/cumm Differential, auto Collection Time: 10/28/21 6:49 AM Result Value Ref Range Neutrophil abs 4.3 1.7 - 6.5 K/cumm Imm gran abs 0.0 0.0 - 0.1 K/cumm Lymphocyte abs 1.6 0.8 - 3.3 K/cumm Monocyte abs 0.6 0.2 - 0.8 K/cumm Eosinophil abs 0.0 0.0 - 0.5 K/cumm Basophil abs 0.0 0.0 - 0.1 K/cumm Neutrophil pct 66.0 % Imm gran pct 0.6 % Lymphocyte pct 23.8 % Monocyte pct 9.2 % Eosinophil pct 0.2 % Basophil pct 0.2 % eGFR Collection Time: 10/28/21 6:49 AM Result Value Ref Range eGFR 133 mL/min/1.73 m2 POCT glucose Collection Time: 10/28/21 7:46 AM Result Value Ref Range Glucose, POC 284 (H) 71 - 98 mg/dL POCT glucose Collection Time: 10/28/21 11:28 AM Result Value Ref Range Glucose, POC 157 (H) 71 - 98 mg/dL POCT glucose Collection Time: 10/28/21 4:45 PM Result Value Ref Range Glucose, POC 40 (Critical) 71 - 98 mg/dL POCT glucose Collection Time: 10/28/21 5:13 PM Result Value Ref Range Glucose, POC 75 71 - 98 mg/dL POCT glucose Collection Time: 10/28/21 5:39 PM Result Value Ref Range Glucose, POC 67 (L) 71 - 98 mg/dL XR Chest 1 [...] Marina Wen M.D. TB: TB Report ID: [id number] Reading Location: [id number] XR Chest 1 Vw Portable Result Date: 10/24/2021 Narrative: EXAM DESCRIPTION: XR CHEST 1 VIEW REASON FOR STUDY: GENERAL WEAKNESS. Came home from work sick on Wednesday throwing up. Patient last seen alert at 1 am Wednesday. Known diabetic. TECHNIQUE: Portable upright AP radiographic view of the chest acquired. COMPARISON: March 04, 2021 FINDINGS:LUNGS/PLEURA: No focal consolidation or pneumothorax. No pleural effusion. HEART/MEDIASTINUM: Heartsize is normal. Normal mediastinal and hilar contours. HARDWARE/LINES/TUBES: None. BONES: No acute findings. OTHER: No other significant finding. IMPRESSION: No acute cardiopulmonary disease. THIS ISAN ELECTRONICALLY VERIFIED FINAL REPORT 10/24/2021 9:03 AM - Electronically signed by Ameya Broussard M.D. RB: TORSTEN Report ID: [id number] Reading Location: [id number] Current Facility-Administered Medications Medication Dose Route Frequency Provider Last Rate Last Admin ??? acetaminophen (TYLENOL) tablet 650 mg 650 mg oral Q4H PRN Dominic Camara MD ??? dextrose gel in packet 15 g 15 g oral Q15 Min PRN Dominic Camara MD Or ??? dextrose (D10W) 10% bolus 250 mL 250 mL intravenous Q15 Min PRN Dominic Camara MD ??? glucagon injection 1 mg 1 mg intramuscular Q30 Min PRN Dominic Camara MD ??? insulin glargine (LANTUS, BASAGLAR, SEMGLEE) 100 unit/mL (3 mL) pen injection 25 Units 25 Unitssubcutaneous Daily Leroy Bustamante MD 25 Units at 10/28/21 0841 ??? insulin lispro (HumaLOG, ADMELOG) 100 unit/mL pen injection 0-10 Units 0-10 Units subcutaneous TID with meals Dominic Camara MD 2 Units at 10/28/21 1210 ??? insulin lispro (HumaLOG, ADMELOG) 100 unit/mL pen injection 0-5 Units 0-5 Units subcutaneous Nightly Dominic Camara MD 1 Units at 10/26/21 2143 ??? insulin lispro (HumaLOG, ADMELOG) 100 unit/mL pen injection 8 Units 8 Units subcutaneous TID with meals Leroy Bustamante MD 8 Units at 10/28/21 1210 ??? metoclopramide (REGLAN) tablet 10 mg 10 mg oral TID PRN Leroy Bustamante MD ??? ondansetron (ZOFRAN) injection 4 mg 4 mg intravenous Q4H PRN Dominic Camara MD ??? sodium chloride 0.9% flush 5-20 mL 5-20 mL intra-catheter PRN Dominic Camara MD 20 mL at 10/24/21 1256 A/P: Active Problems: Depression Dehydration, severe Uncontrolled type 1 diabetes mellitus with hyperglycemia (CMS/HCC) (HCC) Diabetic gastroparesis (CMS/HCC) (HCC) Intractable vomiting with nausea Thrombocytopenia (CMS/HCC) (HCC) Resolved Problems: No resolved hospital problems. Uncontrolled type 1 diabetes with hyperglycemia -patient's glucose still somewhat elevated will increased long-acting insulin to 25 units and t.i.d. lispro to 8 units -D5/LR 50 mL per hour -Patient neonatal nurse is Naomi Sacnhes MD at [facility], left message to schedule hospital follow up and possible insulin pump placement. Thrombocytopenia -decrease in platelets >50% 4 days after starting lovenox- mild concern for HIT. - Ts score 4- intermediate probability 10% risk - HIT panel pending - Patient threatening leaving AMA prior to results- informed of risk associated if + and expressed understanding. ?? Diabetic gastroparesis/intractable vomiting with nausea -added metoclopramide 10 mg TID prn -ondansetron 4 mg prm ?? Depression - Zoloft 50 mg q.d. Leroy Bustamante MD [facility] [employer] PGY 1 10/28/2021 5:56 PM Cosigned by Mann Paris Jr., MD at 10/28/2021 6:22 PM CDT Associated attestation - Mann Paris Jr., MD - 10/28/2021 6:22 PM CDT I personally saw and examined the patient and discussed the case with the resident. I have reviewedthe resident's note and agree with the content and plan as written. MDM: moderate complexity Mann Paris Jr., MD * Amanda Smith, RN - 10/28/2021 4:07 PM CDT Patient seen as requested for diabetes education. Patient denies any educational needs or resources. States she has an appointment with her neonatal nurse Dr. Sanches that she plans on keeping. Amanda Smith BSN sdet * Nelsy Espinal, [facility] - 10/28/2021 11:06 AM CDT Thrombocytopenia Pharmacy Monitoring Protocol This patient is being evaluated for potential drug induced thrombocytopenia with platelet count less than 150,000. Medications: enoxaparin 40 mg SQ daily started 10/24/21 Plan: Platelets have dropped >50% from 548,000 on 10/24/21. Will notify . Recent Labs Lab Units 10/28/21 0649 10/26/21 0609 10/25/21 0455 10/24/21 0908 PLATELETS K/cumm 134* 151 242 548* Medications with higher incidence of drug induced thrombocytopenia: Medications Incidence of Thrombocytopenia Antineoplastics (including low dose methotrexate for RA) 3-77% Heparin(s) 0.6-30% Valproic acid 1-27% Linezolid 0.3-10% Eptifibatide 1-3% Medications with < 1% incidence of thrombocytopenia: Quinine/quinidine Vancomycin Sulfamethoxazole-trimethoprim Beta lactam antibiotics (including aztreonam) Carbamazepine Rifampin Ibuprofen Daptomycin Acetaminophen Naproxen Spironolactone Furosemide Famotidine Phenobarbital Phenytoin GUIDELINES: A review of all patients with a platelet count of less than 150,000 is performed by a pharmacist, daily. The pharmacist evaluates each patient for the conditions listed below. All patients with either: 1. Platelets less than 100,000 or 2. Platelets decreased by greater than 50% from baseline will be reviewed for medications known to cause thrombocytopenia. Exceptions: Pharmacy will note patient diagnosis, current conditions and read physician progress notes to determine if it is necessary to contact the physician regarding thrombocytopenia. If the physician has documented awareness of the low platelet count or the patient has chronically low platelet counts (oncology patients) no recommendation will be made. * Romulo Ayala - 10/27/2021 3:00 PM CDT This medication, famotidine 20 mg BID, was changed from IV route to oral route per protocol. Cosigned by Nelsy Espinal [facility] at 10/27/2021 3:04 PM CDT * Leroy Bustamante MD - 10/27/2021 7:09 AM CDT General Medicine Daily Progress SUBJECTIVE Chief complaint of DKA Interval History: 26-year-old female with a history of type 1 diabetes arrived to the ER with glucose 868, BUN 76 creatinine 270 noted to be in DKA admitted to the ICU for treatment. In ICU patient started on IV fluids and insulin drip. USMAN likely result of severe dehydration in the setting of DKA. Patient transitioned to subcutaneous insulin prior to transfer to the medical unit. Today patient in NAD. She is eager to be discharged home. She states she would like to have an insulin pump to help manage her diabetes. She previously had a pump and stated that it worked well at that time. Patient neonatal nurse is Naomi Sanches MD at [facility], left message to schedule hospital follow up and possible pump placement. Glucose still mildly elevated will monitor over night. OBJECTIVE Vitals: 24hr Min/Max: Temp Min: 36 ??C (96.8 ??F) Max: 37.1 ??C (98.8 ??F) Pulse Min: 76 Max: 105 BP Min: 97/69 Max: 140/96 Resp Min: 10 Max: 28 SpO2 Min: 97 % Max: 100 % Most Recent : Vitals: 10/26/21 2246 BP: 140/96 Pulse: 87 Resp: 18 Temp: 36 ??C (96.8 ??F) SpO2: 99% I/O last 2 completed shifts: In: 8 [P.O.:320; I.V.:1808] Out: 1400 [Urine:1400] No intake/output data recorded. Physical Exam: General: NAD Eyes: EOMI, sclare non icteric Neck: supple no enlarged cervical LN Pharynx: No gross oral lesion, tongue midline, mucosa moist Lungs CTA Heart: [id number], no significant murmur or gallop Abd: +BS, Non Tender, Non distended, No gross hepatomegaly Lower Ext: No gross edema, pedal artery pulses are palpable bilaterally Neuro:alert and oriented, moves all extremities Musculoskeletal: no gross joint erythema, edema, tenderness Skin: Warm and dry Lab/Current Medication Review: Recent Results (from the past 24 hour(s)) POCT glucose Collection Time: 10/26/21 7:48 AM Result Value Ref Range Glucose, POC 240 (H) 71 - 98 mg/dL POCT glucose Collection Time: 10/26/21 11:31 AM Result Value Ref Range Glucose, POC 172 (H) 71 - 98 mg/dL POCT glucose Collection Time: 10/26/21 5:06 PM Result Value Ref Range Glucose, POC 161 (H) 71 - 98 mg/dL POCT glucose Collection Time: 10/26/21 8:54 PM Result Value Ref Range Glucose, POC 179 (H) 71 - 98 mg/dL POCT glucose Collection Time: 10/27/21 2:16 AM Result Value Ref Range Glucose, POC 183 (H) 71 - 98 mg/dL Comprehensive metabolic panel Collection Time: 10/27/21 5:26 AM Result Value Ref Range Sodium 140 135 - 145 mmol/L Potassium, pl 3.6 3.3 - 4.9 mmol/L Chloride 103 97 - 110 mmol/L CO2 27 22 - 32 mmol/L Anion gap 10 2 - 15 mmol/L BUN 9 8 - 25 mg/dL Creatinine 0.30 (L) 0.60 - 1.10 mg/dL Glucose 253 (H) 70 - 199 mg/dL Calcium 8.5 8.5 - 10.3 mg/dL Bilirubin, total 0.8 0.1 - 1.2 mg/dL Protein, pl 5.7 (L) 6.5 - 8.5 g/dL Albumin 3.3 (L) 3.5 - 5.0 g/dL Alk phos 88 40 - 130 Units/L ALT 17 7 - 45 Units/L AST 16 10 - 45 Units/L eGFR Collection Time: 10/27/21 5:26 AM Result Value Ref Range eGFR 151 mL/min/1.73 m2 XR Chest 1 Vw Portable Result Date: 10/24/2021 Narrative: EXAM DESCRIPTION: XR CHEST 1 VIEW REASON FOR STUDY: GENERAL WEAKNESS. Came home from work sick on Wednesday throwing up. Patient last seen alert at 1 am Wednesday. Known diabetic. TECHNIQUE:Portable upright AP radiographic view of the chest acquired. COMPARISON: March 04, 2021 FINDINGS:LUNGS/PLEURA: No focal consolidation or pneumothorax. No pleural effusion. HEART/MEDIASTINUM: Heart size is normal. Normal mediastinal and hilar contours. HARDWARE/LINES/TUBES: None. BONES: No acute findings. OTHER: No other significant finding. IMPRESSION: No acute cardiopulmonary disease. THIS ISAN ELECTRONICALLY VERIFIED FINAL REPORT 10/24/2021 9:03 AM - Electronically signed by Ameya Broussard M.D. RB: TORSTEN Report ID: [id number] Reading Location: [place] [address] Current Facility-Administered Medications Medication Dose Route Frequency Provider Last Rate Last Admin ??? acetaminophen (TYLENOL) tablet 650 mg 650 mg oral Q4H PRN Dominic Camara MD ??? dextrose gel in packet 15 g 15 g oral Q15 Min PRN Dominic Camara MD Or ??? dextrose (D10W) 10% bolus 250 mL 250 mL intravenous Q15 Min PRN Dominic Camara MD ??? dextrose 5% and Lactated Ringer's infusion 50 mL/hr intravenous Continuous Dominic Camara MD 50 mL/hr at 10/27/218 50 mL/hr at 10/27/21 034 ??? enoxaparin (LOVENOX) syringe 40 mg 40 mg subcutaneous Daily-2099 Augusto Salgado MD 40 mg at 10/25/212002 ??? famotidine (PEPCID) injection 20 mg 20 mg intravenous Q12H BOB Dominic Camara MD 20 mg at 10/26/212142 ??? glucagon injection 1 mg 1 mg intramuscular Q30 Min PRN Dominic Camara MD ??? insulin glargine (LANTUS, BASAGLAR, SEMGLEE) 100 unit/mL (3 mL) pen injection 20 Units 20 Unitssubcutaneous Q12H [facility] Dominci Camara MD 20 Units at 10/26/212142 ??? insulin lispro (HumaLOG, ADMELOG) 100 unit/mL pen injection 0-10 Units 0-10 Units subcutaneous TID with meals Dominic Camara MD 2 Units at 10/26/211749 ??? insulin lispro (HumaLOG, ADMELOG) 100 unit/mL pen injection 0-5 Units 0-5 Units subcutaneous Nightly Dominic Camara MD 1 Units at 10/26/212142 ??? insulin lispro (HumaLOG, ADMELOG) 100 unit/mL pen injection 6 Units 0.083 Units/kg subcutaneousTID with meals Dominic Camara MD 6 Units at 10/26/211750 ??? ondansetron (ZOFRAN) injection 4 mg 4 mg intravenous Q4H PRN Dominic Camara MD ??? sertraline (ZOLOFT) tablet 50 mg 50 mg oral Daily Dominic Camara MD 50 mg at 10/25/21 0821 ??? sodium chloride 0.9% flush 5-20 mL 5-20 mL intra-catheter PRN Augusto Salgado MD 20 mL at 10/24/21 1256 A/P: Active Problems: Depression Uncontrolled type 1 diabetes mellitus with hyperglycemia (CMS/HCC) (HCC) Diabetic gastroparesis (CMS/HCC) (HCC) Intractable vomiting with nausea Resolved Problems: No resolved hospital problems. Uncontrolled type 1 diabetes with hyperglycemia -patient's glucose still somewhat elevated will increased long-acting insulin to 25 units and t.i.d. lispro to 8 units -D5/LR 50 mL per hour -Patient neonatal nurse is Naomi Sanches MD at [facility], left message to schedule hospital follow up and possible insulin pump placement. Diabetic gastroparesis/intractable vomiting with nausea -added metoclopramide 10 mg TID prn -ondansetron 4 mg prm Depression - Zoloft 50 mg q.d. DVT prophylaxis-Lovenox Diet consistent carb Consult-conservation educator, dietitian Code status full code Dispo plans-patient plans to dispo home Leroy Bustamante MD [facility] [employer] Interpreter PGY 1 10/27/2021 7:22 AM Cosigned by Farida Chaney MD at 10/27/2021 5:18 PM CDT Associated attestation - Farida Chaney MD - 10/27/2021 5:18 PM CDT On the date of this encounter, I saw and examined the patient, personally verifying the espinoza and critical findings in the resident's note. I reviewed and agree with the resident/fellow's findings and plan. 26 y.o. with history of diabetes type 1 who presented with vomiting and agitation Reason for admission: DKA, severe metabolic acidosis, volume depletion, electrolyte imbalance originally admitted to ICU. Improved status. Continuing to work on proper insulin regimen. Most likely will benefit for insulin pump. Working on logistics. D/C pending. * Dominic Camara MD - 10/26/2021 6:10 AM CDT Progress Note Critical Care Subjective: Awake Chief complaint of DKA Interval History: 26-year-old female admitted with nausea dehydration hyperglycemia in DKA has history of depression diabetes mellitus medical noncompliance previous multiple admissions she was treated with crystalloid bolus and infusion GlucoStabilizer with subsequent hydration with glucose containing solution for hypernatremia. Now transitioning to subcutaneous insulin advancing diet continue antidepressants. Review of Systems All other systems reviewed and are negative. Medications: enoxaparin, 40 mg, subcutaneous, Daily-2100 famotidine, 20 mg, intravenous, Q12H BOB insulin glargine, 20 Units, subcutaneous, Q12H BOB insulin lispro, 0-10 Units, subcutaneous, TID with meals insulin lispro, 0-5 Units, subcutaneous, Nightly insulin lispro, 0.083 Units/kg, subcutaneous, TID with meals sertraline, 50 mg, oral, Daily Subjective: Vitals: 24hr Min/Max: Temp Min: 36.2 ??C (97.1 ??F) Max: 37.1 ??C (98.8 ??F) Pulse Min: 83 Max: 136 BP Min: 94/60 Max: 149/106 Resp Min: 12 Max: 24 SpO2 Min: 93 % Max: 100 % Date 10/25/21699 - 10/26/2165810/26/21699 - 10/27/21 0659 Shift 4499-9786 3135-8619 24 Hour Total 5435-3645 5640-1790 24 Hour Total INTAKE P.O. 240 150 390 I.V.(mL/kg) 1850(24.4) 1602(21.2) 3452(45.6) Shift Total(mL/kg) 2090(27.6) 1752(23.1) 3842(50.8) OUTPUT Urine(mL/kg/hr) 800(0.9) 750 1550 Shift Total(mL/kg) 800(10.6) 750(9.9) 1550(20.5) NET 1290 1002 2292 Weight (kg) 75.7 75.7 75.7 75.7 75.7 75.7 Physical Exam Vitals and nursing note reviewed. HENT: Head: Normocephalic. Nose: Nose normal. Mouth/Throat: Mouth: Mucous membranes are moist. Eyes: Extraocular Movements: Extraocular movements intact. Cardiovascular: Rate and Rhythm: Normal rate and regular rhythm. Heart sounds: Normal heart sounds. Pulmonary: Effort: Pulmonary effort is normal. Abdominal: Palpations: Abdomen is soft. Musculoskeletal: Cervical back: Neck supple. Skin: General: Skin is warm. Neurological: General: No focal deficit present. Mental Status: She is alert. Lab/Radiology/Diagnostic Review: Lab Results Component Value Date WBC 17.7 (H) 10/25/2021 HGB 11.6 (L) 10/25/2021 HCT 35.1 (L) 10/25/2021 LABPLAT 242 10/25/2021 CHOL 160 02/08/2017 TRIG 66 02/08/2017 HDL 57 02/08/2017 ALT 14 10/24/2021 AST 15 10/24/2021 SODIUM 150 (H) 10/25/2021 POTASSIUM 3.1 (L) 10/25/2021 CHLORIDE 114 (H) 10/25/2021 CREATININE 0.48 (L) 10/25/2021 BUNSER 12 10/25/2021 CO2 29 10/25/2021 TSH 0.64 03/04/2021 INR 1.2 10/24/2021 HGBA1C 6.7 (H) 04/28/2021 A/P: Principal Problem: Diabetic ketoacidosis without coma associated with type 1 diabetes mellitus (CMS/HCC) (HCC) PRE PRESS OPERATOR: Awake nonfocal continue Zoloft for depression Cardiac: Hemodynamically stable Pulm: Stable GI/Nutrition: GI prophylaxis advance diabetic diet Renal: Stable continue D5 LR Heme: DVT precautions ID: No acute problems Critical Care Time: I have spent 65 minutes in full attendance with this critically ill patient making frequent reassessments and decisions regarding this patient's complex medical care. Critical care time was exclusive of separately billable procedures, treating other patients and teaching time. Dominic Camara MD * Dorian King [facility] - 10/26/2021 12:13 AM CDT Pharmacy Consult -Electrolyte Repletion Protocol Electrolyte monitoring performed by pharmacy on labs from 10/25 @ 2259, Na+=150 K+=3.1 Potassium 40 meq PO x1 dose replacement ordered. Pharmacy will continue to follow daily. Thank you, Dorian King [facility] Pharmacy department * Jazmin Tate [facility] - 10/25/2021 6:46 AM CDT Pharmacy Consult -Electrolyte Repletion Protocol Electrolyte monitoring performed by pharmacy on labs from 10/25 0455 (date & time), Na+=155 K+=3.8 Mg+=no result Phos=1.1 Potassium Phosphate 0.4 mmol/kg (30 mmol) IVPB x 1 dose replacement ordered for Phos=1.1. Patient had no oral meds. Pharmacy will continue to follow daily. Thank you, Jazmin [facility] * Dominic Camara MD - 10/25/2021 6:05 AM CDT Progress Note Critical Care Subjective: Awake Chief complaint of diabetic ketoacidosis Interval History: 26-year-old female admitted with nausea dehydration hyperglycemia found to be in DKA has history ofdepression diabetes mellitus medical noncompliance with previous multiple admissions she was treated with crystalloids bolus and infusion insulin drip has remained hemodynamically stable tachycardic h ypernatremic. Continue D5 LR infusion GlucoStabilizer symptomatic treatment for nausea developing gastro paresis advance diet. Review of Systems All other systems reviewed and are negative. Medications: enoxaparin, 40 mg, subcutaneous, Daily-2100 famotidine, 20 mg, intravenous, Q12H BOB Subjective: Vitals: 24hr Min/Max: Temp Min: 36.2 ??C (97.1 ??F) Max: 36.8 ??C (98.3 ??F) Pulse Min: 135 Max: 158 BP Min: 87/59 Max: 143/83 Resp Min: 13 Max: 48 SpO2 Min: 97 % Max: 100 % Date 10/24/21699 - 10/25/2165810/25/21699 - 10/26/21658 Shift 7815-6689 6837-3682 24 Hour Total 6147-6160 1078-2049 24 Hour Total INTAKE I.V.(mL/kg) 4618(60.6) 1616(21.3) 6234(82.4) Shift Total(mL/kg) 4618(60.6) 1616(21.3) 6234(82.4) OUTPUT Urine(mL/kg/hr) 400 400 Shift Total(mL/kg) 400(5.3) 400(5.3) NET 4618 1216 5834 Weight (kg) 76.2 75.7 75.7 75.7 75.7 75.7 Physical Exam Vitals and nursing note reviewed. Constitutional: Appearance: Normal appearance. HENT: Head: Normocephalic. Nose: Nose normal. Mouth/Throat: Mouth: Mucous membranes are moist. Eyes: Extraocular Movements: Extraocular movements intact. Cardiovascular: Rate and Rhythm: Regular rhythm. Tachycardia present. Heart sounds: Normal heart sounds. Pulmonary: Effort: Pulmonary effort is normal. Abdominal: Palpations: Abdomen is soft. Musculoskeletal: General: No deformity. Cervical back: Neck supple. Skin: General: Skin is warm. Neurological: General: No focal deficit present. Lab/Radiology/Diagnostic Review: Lab Results Component Value Date WBC 17.7 (H) 10/25/2021 HGB 11.6 (L) 10/25/2021 HCT 35.1 (L) 10/25/2021 LABPLAT 242 10/25/2021 CHOL 160 02/08/2017 TRIG 66 02/08/2017 HDL 57 02/08/2017 ALT 14 10/24/2021 AST 15 10/24/2021 SODIUM 155 (H) 10/25/2021 POTASSIUM 3.8 10/25/2021 CHLORIDE 125 (H) 10/25/2021 CREATININE 0.73 10/25/2021 BUNSER 29 (H) 10/25/2021 CO2 20 (L) 10/25/2021 TSH 0.64 03/04/2021 INR 1.2 10/24/2021 HGBA1C 6.7 (H) 04/28/2021 A/P: Principal Problem: Diabetic ketoacidosis without coma associated with type 1 diabetes mellitus (CMS/HCC) (HCC) PRE PRESS OPERATOR: Awake nonfocal history of depression start antidepressant therapy Cardiac: Hemodynamically stable improving tachycardia Pulm: Remains stable GI/Nutrition: GI prophylaxis advance diet Renal: Acute kidney injury dehydrated continue D5 LR hydration Heme: DVT precautions ID: No acute issues Critical Care Time: I have spent 65 minutes in full attendance with this critically ill patient making frequent reassessments and decisions regarding this patient's complex medical care. Critical care time was exclusive of separately billable procedures, treating other patients and teaching time. Dominic Camara MD * Nelsy Espinal, [facility] - 10/24/2021 2:49 PM CDT Pharmacy Consult -Electrolyte Repletion Protocol An order to initiate electrolyte repletion by pharmacy has been received from Dr. Preethi Bai. IV or PO repletion will be ordered [...] days, then every other day. Thank you, Nelsy Espinal [facility] Pharmacy department * Haley Harvey [facility] - 10/24/2021 2:17 PM CDT Dose of lovenox adjusted per lovenox protocol for CrCl=>30 ml/min (CrCl=41.7 ml/min); wt=76.2 kg; BMI=30.73 Increased lovenox 30 mg SQ daily to 40 mg SQ daily * Brandee Suárez - 10/24/2021 12:24 PM CDT Nutrition Assessment Reason for Assessment: Screened at Nutrition Risk and Initial Nutrition Assessment Encounter Date: 10/24/21 12:24 PM Nutrition Assessment and Plan: Patient is a 26 y.o. female. Admit Dx: DKA. Admitted on 10/24/2021, current LOS is 0 days. Screened for DKA. Not appropriate for edu at this time d/t lethargic and NPO. RDN to follow for edu needs anddiet advancement. Current diet order: NPO Diet Nutrition Diagnosis 1: Limited adherence to nutrition-related recommendations Related to: Chronic illness/injury Evidenced by: Other (comment) (multiple DKA admissions in last year) ?? Interventions: Assess for nutrition changes ?? Monitoring and Evaluation: Diet-related questions, Discharge plans, Diet advancement, Plan of care, Labs ?? Goals: Advance to oral intake as medically able, Patient/caregiver able to teach back understanding of role of diet in disease process prior to discharge Wt Readings from Last 10 Encounters: 10/24/21 76.2 kg (167 lb 15.9 oz) 07/22/21 73.1 kg (161 lb 2.5 oz) 04/28/21 76.5 kg (168 lb 11.2 oz) 03/26/21 64.1 kg (141 lb 5 oz) 03/05/21 66 kg (145 lb 8.1 oz) 11/16/20 73.5 kg (162 lb) 11/17/20 73.5 kg (162 lb 0.6 oz) 03/12/20 72.6 kg (160 lb) 03/07/20 73.9 kg (163 lb) 12/01/19 75.9 kg (167 lb 5.3 oz) Estimated needs: ?? Total Kcal/kg Estimated Needs : 1827.5 based on Kcal/k. Type of Weight Used for Estimated Kcals: RD determined ?? Total Protein Estimated Needs (gm): 76.2 Protein Needs Based on g/k.0 Type of Weight Used for Estimated Protein : Current. ?? Total Fluid Estimated Needs: 1827.5 Fluid Needs Based on : 1 ml/kcal. Objective Anthropometrics Weight: 76.2 kg (167 lb 15.9 oz) Admission Weight : 76.2 kg Weight Change: 3.10 kg (6.83 lbs) IBW/kg (Calculated) : 49.9 kg Height: 157.5 cm (5' 2 ) Weight in (lb) to have BMI = 25: 136.4 BMI (Calculated): 30.7 BMI Classification: BMI 25.0 - 29.9 Overweight 3 Day I/O Summary No intake/output data recorded. Temp: 36.5 ??C (97.7 ??F) Past Medical History: Diagnosis Date ??? Depression ??? Diabetes mellitus (HCC) T1DM ??? HX OTHER MEDICAL 2011 Diabetes mellitus, type 1 ??? Miscarriage Medications and Lab Review: Scheduled Meds: enoxaparin, 30 mg, subcutaneous, Daily-2100 lidocaine PF, 10 mL, other, Once Continuous Infusions: insulin regular, 0-30 Units/hr, Last Rate: 11.4 Units/hr (10/24/21 1153) And dextrose 5%, 40 mL/hr Sodium Date Value Ref Range Status 10/24/2021 142 135 - 145 mmol/L Final Potassium, pl Date Value Ref Range Status 10/24/2021 4.4 3.3 - 4.9 mmol/L Final BUN Date Value Ref Range Status 10/24/2021 76 (H) 8 - 25 mg/dL Final Creatinine Date Value Ref Range Status 10/24/2021 2.70 (H) 0.60 - 1.10 mg/dL Final Phosphorus, pl Date Value Ref Range Status 10/24/2021 5.0 (H) 2.3 - 4.5 mg/dL Final Albumin Date Value Ref Range Status 10/24/2021 4.4 3.5 - 5.0 g/dL Final Magnesium Date Value Ref Range Status 10/24/2021 3.5 (H) 1.4 - 2.5 mg/dL Final Calcium Date Value Ref Range Status 10/24/2021 9.2 8.5 - 10.3 mg/dL Final Lab Results Component Value Date HGBA1C 6.7 (H) 04/28/2021 POC Glucose: Latest Reference Range & Units 10/24/21 09:37 10/24/21 10:50 10/24/21 11:49 Glucose, POC 71 - 98 mg/dL >600 !! 508 !! 345 (H) (H): Data is abnormally high !!: Data is critical Nursing Assessment: Diet Instructions Continue to follow a Consistent [...] doctor for referral tooutpatient nutrition counseling. Call [facility] office at [phone] for questions about your diet. Additional resources available from the [employer] can be found at www.diabetes.org/nutrition Nutrition Follow-Up : 10/28/21 (DKA) KALYAN Garcias documented in this encounter H&P Notes * Augusto Salgado MD - 10/24/2021 2:34 PM CDT Critical Care Medicine History and Physical CC: Ms. Karina Fuchs 26 y.o. with history of diabetes type 1 who presented with vomiting and agitation Reason for admission: DKA, severe metabolic acidosis, volume depletion, electrolyte imbalance HPI: This lady cannot provide history since she has received Ativan because of extreme agitation. She originally presented to the emergency room after 2 days of nausea and vomiting. She became somnolent with intermittent agitation in the ER and for that reason she received Ativan. Her chemistries were extremely abnormal showing pH of 6.98 with a pCO2 of 10 and total CO2 of less than 2. Her glucose pdn694. Patient was given IV fluids and started on insulin drip and then brought to the ICU for further care. When I saw her she was sedated, her mother mentioned that she has been agitated which is nottypical of her. Patient apparently does not smoke or use any drugs. Past Medical History: Diagnosis Date ??? Depression [...] skin every 12 (twelve) hours 6 mL 0 ??? insulin lispro (HumaLOG) 100 unit/mL injection [...] Provider Last Rate Last Admin ??? dextrose (D10W) 10% bolus 1-500 mL 1-500 mL intravenous PRN Augusto Salgado MD ??? dextrose 5% and Lactated Ringer's infusion 125 mL/hr intravenous Continuous Augusto Salgado MD 125 mL/hr at 10/24/21 1356 125 mL/hr at 10/24/21 1356 ??? enoxaparin (LOVENOX) syringe 40 mg 40 mg subcutaneous Daily-2100 Augusto Salgado MD ??? insulin regular bolus from bag 1-10 Units 1-10 Units intravenous PRN Augusto Salgado MD ??? insulin regular in 0.9% sodium chloride (MYXREDLIN) 100 unit/100 mL (1 unit/mL) infusion (premix) 0-30 Units/hr intravenous Titrated Augusto Salgado MD 7.5 mL/hr at 10/24/21 1413 7.5 Units/hr at 10/24/21 1413 ??? metoclopramide (REGLAN) injection 10 mg 10 mg intravenous Q6H PRN Cody Case MD ??? sodium chloride 0.9% flush 5-10 mL 5-10 mL intra-catheter Q12H BOB Augusto Salgado MD 10 mL at 10/24/21 1256 ??? sodium chloride 0.9% flush 5-10 mL 5-10 mL intra-catheter Q12H BOB Augusto Salgado MD 10 mL at 10/24/21 1256 ??? sodium chloride 0.9% flush 5-20 mL 5-20 mL intra-catheter PRN Augusto Salgado MD 20 mL at 10/24/21 1256 ??? sodium chloride 0.9% flush 5-20 mL 5-20 mL intra-catheter PRN Augusto Salgado MD 20 mL at 10/24/21 1256 No Known Allergies Social History Tobacco Use ??? Smoking status: Never Smoker ??? Smokeless tobacco: Never Used Substance Use Topics ??? Alcohol use: Not Currently Family History Problem Relation Age of Onset ??? Anemia Mother ??? Autism Brother Review of Systems: Unable to obtain since the patient is sedated Objective Vitals: Vitals: 10/24/21 0921 10/24/21 1000 10/24/21 1031 10/24/21 1200 BP: 109/55 96/80 (!) 87/59 107/51 BP Location: Left arm Left arm Patient Position: Lying Pulse: (!) 146 (!) 152 (!) 158 (!) 155 Resp: 27 29 18 25 Temp: 36.5 ??C (97.7 ??F) TempSrc: Temporal SpO2: 100% 100% 100% 100% Weight: 76.2 kg (167 lb 15.9 oz) Height: 157.5 cm (5' 2 ) LDA: PICC Triple Lumen 10/24/21 Tunneled Power #1 Red, #2 White, #3 Mcgraw, Right Brachial (Active) Placement Date/Time: 10/24/21 1256 Catheter Time Out Checklist Completed: Yes Hand Hygiene Performed: Yes Site Prep: Chlorhexidine Site Prep Agent has Completely Dried Before Insertion: Yes All 5 Sterile Barriers or Appropriate Barriers Used (Gl... Number of days: 0 Physical Exam: Blood pressure was 107/51, heart rate was 158 respiratory rate was 28 oxygen saturation was 100% Temperature was 97.7 degrees HEENT pupils were 3 mm Oral mucosa was dry Neck no jugular distention Lungs no rales or wheezing Cardiovascular was tachycardic and regular Abdomen was soft not distended Extremities showed no significant erythema or edema Skin shows no rash or lesions Neurologically the patient is sedated Musculoskeletal no evidence of joint inflammation Lab/Radiology/Diagnostic Review: Reviewed. Recent Results (from the past 24 hour(s)) Influenza A/B, RSV, and COVID-19 PCR Nasopharyngeal Collection Time: 10/24/21 8:37 AM Specimen: Nasopharyngeal Result Value Ref Range COVID-19 RNA Negative Negative Influenza A RNA Negative Negative Influenza B RNA Negative Negative RSV RNA Negative Negative Comprehensive metabolic panel Collection Time: 10/24/21 9:07 AM Result Value Ref Range Sodium 142 135 - 145 mmol/L Potassium, pl 4.4 3.3 - 4.9 mmol/L Chloride 108 97 - 110 mmol/L CO2 <2 (L) 22 - 32 mmol/L Anion gap unable to calc 2 - 15 mmol/L BUN 76 (H) 8 - 25 mg/dL Creatinine 2.70 (H) 0.60 - 1.10 mg/dL Glucose 868 (Critical) 70 - 199 mg/dL Calcium 9.2 8.5 - 10.3 mg/dL Bilirubin, total 0.3 0.1 - 1.2 mg/dL Protein, pl 7.1 6.5 - 8.5 g/dL Albumin 4.4 3.5 - 5.0 g/dL Alk phos 117 40 - 130 Units/L ALT 14 7 - 45 Units/L AST 12 10 - 45 Units/L eGFR Collection Time: 10/24/21 9:07 AM Result Value Ref Range eGFR 24 mL/min/1.73 m2 CBC with auto differential Collection Time: 10/24/21 9:08 AM Result Value Ref Range WBC 30.2 (H) 3.8 - 9.9 K/cumm Hgb 13.4 11.9 - 15.5 g/dL Hct 44.5 35.6 - 45.5 % Plt 548 (H) 150 - 400 K/cumm MPV 9.6 9.1 - 12.3 fL RBC 4.89 3.90 - 5.20 M/cumm MCV 91.0 81.3 - 96.4 fL MCH 27.4 27.1 - 33.3 pg MCHC 30.1 (L) 32.3 - 35.7 g/dL RDW CV 16.6 (H) 11.1 - 14.9 % RDW SD 54.9 (H) 35.7 - 48.1 fL NRBC abs 0.00 0.00 - 0.01 K/cumm Sepsis Lactate w/ Reflex Collection Time: 10/24/21 9:08 AM Result Value Ref Range Sepsis Lactate 3.3 (H) 0.7 - 2.0 mmol/L Protime-INR Collection Time: 10/24/21 9:08 AM Result Value Ref Range PT 12.6 9.2 - 13.5 sec INR 1.2 0.9 - 1.2 Phosphorus Collection Time: 10/24/21 9:08 AM Result Value Ref Range Phosphorus, pl 5.0 (H) 2.3 - 4.5 mg/dL Magnesium Collection Time: 10/24/21 9:08 AM Result Value Ref Range Magnesium 3.5 (H) 1.4 - 2.5 mg/dL Manual Differential Collection Time: 10/24/21 9:08 AM Result Value Ref Range Differential Manual Cells Counted 100 Neutrophil abs 26.9 (H) 1.7 - 6.5 K/cumm Imm gran abs 0.6 (H) 0.0 - 0.1 K/cumm Lymphocyte abs 1.8 0.8 - 3.3 K/cumm Monocyte abs 0.9 (H) 0.2 - 0.8 K/cumm Neutrophil pct 84.0 % Lymphocyte pct 5.0 % Monocyte pct 3.0 % Neutrophilic bands 5.0 0.0 - 5.0 % Myelocytes 2.0 (H) 0.0 - 0.0 % Variant lymphs 1.0 (H) 0.0 - 0.0 % RBC morphology Consistent with RBC Indicies Anisocytosis Slight (A) Poikilocytosis Slight (A) Platelet estimate Automated Count Confirmed Blood gas, arterial Collection Time: 10/24/21 9:24 AM Result Value Ref Range pH, Art 6.98 (Critical) 7.35 - 7.45 PCO2, Arterial 10 (Critical) 35 - 45 mmHg PO2, Arterial 139 (H) 83 - 108 mmHg HCO3 Art (Calculated) <3 (L) 20 - 30 mmol/L BE, art -30 mmol/L O2 Sat Art (Measured) 98 (H) 90 - 95 % POCT glucose Collection Time: 10/24/21 9:37 AM Result Value Ref Range Glucose, POC >600 (Critical) 71 - 98 mg/dL POCT glucose Collection Time: 10/24/21 10:50 AM Result Value Ref Range Glucose, POC 508 (Critical) 71 - 98 mg/dL POCT glucose Collection Time: 10/24/21 11:49 AM Result Value Ref Range Glucose, POC 345 (H) 71 - 98 mg/dL POCT glucose Collection Time: 10/24/21 1:05 PM Result Value Ref Range Glucose, POC 234 (H) 71 - 98 mg/dL Sepsis Lactate w/ Reflex Collection Time: 10/24/21 1:14 PM Result Value Ref Range Sepsis Lactate 2.1 (H) 0.7 - 2.0 mmol/L Comprehensive metabolic panel Collection Time: 10/24/21 1:14 PM Result Value Ref Range Sodium 152 (H) 135 - 145 mmol/L Potassium, pl 3.9 3.3 - 4.9 mmol/L Chloride 124 (H) 97 - 110 mmol/L CO2 11 (L) 22 - 32 mmol/L Anion gap 16 (H) 2 - 15 mmol/L BUN 58 (H) 8 - 25 mg/dL Creatinine 1.63 (H) 0.60 - 1.10 mg/dL Glucose 244 (H) 70 - 199 mg/dL Calcium 8.8 8.5 - 10.3 mg/dL Bilirubin, total 0.3 0.1 - 1.2 mg/dL Protein, pl 6.8 6.5 - 8.5 g/dL Albumin 4.3 3.5 - 5.0 g/dL Alk phos 100 40 - 130 Units/L ALT 14 7 - 45 Units/L AST 15 10 - 45 Units/L eGFR Collection Time: 10/24/21 1:14 PM Result Value Ref Range eGFR 45 mL/min/1.73 m2 Blood gas, venous Collection Time: 10/24/21 2:10 PM Result Value Ref Range pH, Venous 7.29 (L) 7.32 - 7.43 PCO2, Venous 31 (L) 40 - 50 mmHg PO2, Venous 48 mmHg HCO3 Venous, Calculated 14 (L) 20 - 30 mmol/L BE, venous -11 mmol/L POCT glucose Collection Time: 10/24/21 2:13 PM Result Value Ref Range Glucose, POC 210 (H) 71 - 98 mg/dL Imaging: Chest x-ray is clear Assessment and Plan: 1. Neurologically: He was encephalopathic and agitated associated with severe dehydration and metabolic acidosis. Will see how she is later on once the Ativan has been metabolized and her clinical condition improves. 2. Cardiovascular: Very tachycardic (sinus mechanism) still even after 4 L of fluid resuscitation. Should get better, Will monitor. 3. Respiratory: Lungs are clear and chest x-ray is clear as well. No history of tobacco 4. GI: She has history of gastroparesis. Will use p.r.n. Reglan. Abdominal examination is benign 5. and Renal: Severe dehydration in the setting of DKA causing acute kidney injury. Will continue monitoring chemistries every [address] on electrolyte protocol. Will change IV fluidsto D5 LR 6. Endocrine: Most recent blood sugar 210. Continue with insulin protocol according to the GlucoStabilizer 7. Hematologically: CBC shows leukocytosis which is expected. Will repeat tomorrow 8. DVT prophylaxis: Lovenox 9. Id: No evidence of acute infection therefore no antibiotics prescribed Pain assessment: Ongoing Advance directive/code status: Full Estimated length of stay more than 2 midnights Spent total of 45 minutes of critical care time for the treatment of DKA, severe metabolic acidosis, volume depletion, tachycardia, altered mental status. Spoke with mother Augusto Bai MD Critical Care 10/24/2021 2:43 PM Voice recognition software was used to dictate and transcribe this document. Despite proofreading, web sizer variances and/or typographical errors might have occurred. documented in this encounter Consult Notes * Lynsey Hurtado - 10/28/2021 9:49 AM CDT Nutrition Assessment Reason for Assessment: Consult/Referral, Follow Up and Diet Education Encounter Date: 10/28/21 9:49 AM Nutrition Assessment and Plan: Patient is a 26 y.o. female. Admit Dx: DKA. Admitted on 10/24/2021, current LOS is 4 days. Pediatric Nutrition Screen What diet do you follow at home?: regfular Have You Recently Lost Weight Without Trying?: No Poor Oral Intake for Four or More Days Prior to Admission: No Adult Malnutrition Scoring Tool (MST) What diet do you follow at home?: regfular Have You Recently Lost Weight Without Trying?: No Have you been eating poorly because of a decreased appetite?: No Malnutrition Screening Tool (MST) Score: 0 Current diet order: Adult Diet Restricted; Consistent Carbohydrate Pt intake is inconsistent. PO intakes: 0-75% Supplement Order: N/A ASSESSMENT: Consult for diet education. Per patient, she already knows all about CHO intakes, portion sizes, etc. She will be getting an insulin pump and will need outpatient diabetes education at that point. She has been gaining weight and intakes are good outside of hospital stay. No s/s of malnutrition. Nutrition Diagnosis 1: Limited adherence to nutrition-related recommendations Related to: Chronic illness/injury Evidenced by: Other (comment) (multiple DKA admissions in last year) ?? Interventions: Initial assessment, Colby diet preferences within the limits of nutrition care order, Education, nutrition, Encouragement, Communication, referral to outpatient program ?? Monitoring and Evaluation: Diet-related questions, Discharge plans, Diet advancement, Plan of care, Labs ?? Goals: Advance to oral intake as medically able, Patient/caregiver able to teach back understanding of role of diet in disease process prior to discharge ?? Recommendations: Pt will need outpatient diabetes education/nutrition referral when insulin pumpis placed ? Wt Readings from Last 10 Encounters: 10/25/21 75.7 kg (166 lb 14.2 oz) [...] 12/01/19 75.9 kg (167 lb 5.3 oz) Estimated needs: ?? Total Kcal/kg Estimated Needs : 1827.5 based on Kcal/k. Type of Weight Used for Estimated Kcals: RD determined ?? MSJ using ?? [place] State ?? Total Protein Estimated Needs (gm): 76.2 Protein Needs Based on g/k.0 Type of Weight Used for Estimated Protein : Current. ?? Total Fluid Estimated Needs: 1827.5 Fluid Needs Based on : 1 ml/kcal. Objective Anthropometrics Weight: 75.7 kg (166 lb 14.2 oz) Admission Weight : 76.2 kg Weight Change: -0.50 kg (-1.10 lbs) IBW/kg (Calculated) : 49.9 kg Height: 157.5 cm (5' 2 ) Weight in (lb) to have BMI = 25: 136.4 BMI (Calculated): 30.5 BMI Classification: BMI 25.0 - 29.9 Overweight 3 Day I/O Summary 10/26 1900 - 10/28 0659 In: 1627 [P.O.:740; I.V.:887] Out: - Temp: 37.1 ??C (98.7 ??F) Past Medical History: Diagnosis Date ??? Depression ??? Diabetes mellitus (HCC) T1DM ??? HX OTHER MEDICAL 2011 Diabetes mellitus, type 1 ??? Miscarriage Medications and Lab Review: Scheduled Meds: enoxaparin, 40 mg, subcutaneous, Daily-2100 insulin glargine, 25 Units, subcutaneous, Daily insulin lispro, 0-10 Units, subcutaneous, TID with meals insulin lispro, 0-5 Units, subcutaneous, Nightly insulin lispro, 8 Units, subcutaneous, TID with meals Continuous Infusions: dextrose 5% and Lactated Ringer's, 50 mL/hr, Last Rate: 50 mL/hr (10/27/21 5488) Sodium Date Value Ref Range Status 10/28/2021 137 135 - 145 mmol/L Final Potassium, pl Date Value Ref Range Status 10/28/2021 4.4 3.3 - 4.9 mmol/L Final BUN Date Value Ref Range Status 10/28/2021 14 8 - 25 mg/dL Final Creatinine Date Value Ref Range Status 10/28/2021 0.50 (L) 0.60 - 1.10 mg/dL Final Phosphorus, pl Date Value Ref Range Status 10/28/2021 2.7 2.3 - 4.5 mg/dL Final Albumin Date Value Ref Range Status 10/28/2021 3.7 3.5 - 5.0 g/dL Final Magnesium Date Value Ref Range Status 10/28/2021 1.9 1.4 - 2.5 mg/dL Final Calcium Date Value Ref Range Status 10/28/2021 9.0 8.5 - 10.3 mg/dL Final Lab Results Component Value Date HGBA1C 7.6 (H) 10/26/2021 POC Glucose: Latest Reference Range & Units 10/28/21 02:05 10/28/21 06:49 10/28/21 07:46 Glucose 70 - 199 mg/dL 298 (H) Glucose, POC 71 - 98 mg/dL 229 (H) 284 (H) (H): Data is abnormally high Nursing Assessment: Bowel Sounds (All Quadrants): Present Teodoro Scale Score: 19 Diet Instructions Continue [...] doctor for referral tooutpatient nutrition counseling. Call [facility]'s office at [phone] for questions about your diet. Additional resources available from the [place] [employer] can be found at www.diabetes.org/nutrition Nutrition Follow-Up : 11/03/21 Lynsey Hurtado M.S., RD, LDN CELL: [phone] documented in this encounter Nursing Notes * Saul David RN - 10/28/2021 5:55 PM CDT Pt left AMA. Educated pt on benefits of staying in the hospital and receiving proper treatment. Explained risk to patient about not completing correct treatment for diabetes. Pt verbalized understanding and signed AMA paperwork. Ambulated out the hospital without assistance. * Arlen Hanson RN - 10/27/2021 7:[address] Bustamante informed of chest x-ray results. To discontinue PICC line. Pts nurse notified. * Arlen Hanson RN - 10/27/2021 5:50 PM CDT Still no blood return noted. Upon flushing PICC, pt stated that she felt something in her neck. Chest x-ray ordered. * Marina Del Valle RN - 10/26/2021 3:25 PM CDT Transferred to room G 608, per wheel chair, in stable condition. All personal belongs sent with pt.I spoke with pt's mom Karen, notified of transfer, she verbalizes understanding. documented in this encounter ED Notes * Cody Case MD - 10/24/2021 8:15 AM CDT HPI No chief complaint on file. Patient is a longstanding brittle insulin-dependent diabetic who has had multiple episodes of ketoacidosis the last 1 approximately 3 months ago patient started getting in trouble about 2 days ago she refused to come to the hospital at the urging of her family yesterday. Patient arise and EMS deeply somnolent flailing about and markedly dry mucous membranes she responds to deep pain only. No other history from the patient is available history is provided by the mother is limited Patient History: Patient Active Problem List Diagnosis Date Noted ??? Leukocytosis 04/29/2021 ??? Hypophosphatemia ??? Intractable vomiting with nausea ??? Altered mental status 03/04/2021 ??? Diabetic ketoacidosis with coma associated with type 1 diabetes mellitus (CMS/HCC) ([facility]) 11/16/2020 ??? Marijuana abuse 11/16/2020 ??? Currently in first trimester with unknown gestational age 1103/26/2020 ??? Intractable vomiting 03/13/2020 ??? Supervision of high-risk 03/06/2020 ??? T1DM in 03/06/2020 ??? Noncompliance with medication regimen 04/26/2019 ??? Diabetic ketoacidosis without coma associated with type 1 diabetes mellitus (CMS/HCC) ([facility]) 03/24/2019 ??? Tachycardia 03/24/2019 ??? Diabetic gastroparesis (CMS/HCC) ([facility]) 02/14/2019 ??? Depression 02/11/2019 ??? Hypokalemia 11/08/2018 ??? Cannabinoid hyperemesis syndrome 01/02/2018 ??? Uncontrolled type 1 diabetes mellitus with hyperglycemia (CMS/HCC) ([facility]) 01/02/2018 Past Medical History: Diagnosis Date ??? Depression ??? Diabetes mellitus ([facility]) T1DM ??? HX OTHER MEDICAL 2011 Diabetes [...] file Review of Systems Review of Systems Unable to perform ROS: Mental status change Physical Exam ED Triage Vitals [10/24/21 0814] Temp Pulse Resp BP SpO2 -- (!) 144 (!) 48 (!) 89/44 100 % Temp src Heart Rate Source Patient Position BP Location FiO2 (%) -- -- -- -- -- Height Height Method Weight Weight Method -- -- -- -- Physical Exam Vitals and nursing note reviewed. Constitutional: General: She is in acute distress. Appearance: She is ill-appearing. HENT: Head: Normocephalic and atraumatic. Nose: Nose normal. Mouth/Throat: Mouth: Mucous membranes are dry. Comments: Caked crusted on mouth and nose Eyes: Extraocular Movements: Extraocular movements intact. Conjunctiva/sclera: Conjunctivae normal. Pupils: Pupils are equal, round, and reactive to light. Cardiovascular: Rate and Rhythm: Tachycardia present. Comments: Very poor pulses periferal Pulmonary: Effort: Respiratory distress present. Abdominal: General: Abdomen is flat. There is no distension. Palpations: There is no mass. Tenderness: There is no abdominal tenderness. There is no guarding. Hernia: No hernia is present. Musculoskeletal: Cervical back: Normal range of motion and neck supple. Comments: Poor color and turgur Skin: General: Skin is dry. Capillary Refill: Capillary refill takes more than 3 seconds. Neurological: General: No focal deficit present. Mental Status: She is disoriented. Psychiatric: Mood and Affect: Mood normal. MDM MDM Final diagnoses: None Cody Case MD 10/24/2133 * Coleman Schilling RN - 10/24/2021 8:10 AM CDT Came home from work sick on Wednesday throwing up. Patient last seen alert at 1 am Wednesday. Known diabetic. * Amina Feliciano RN - 10/24/2021 8:01 AM CDT Bed: ED02 Expected date: Expected time: Means of arrival: Comments: Amina Feliciano RN 10/24/21 08 documented in this encounter Miscellaneous Notes * Plan of Care - Kimber Petty RN - 10/28/2021 1:53 PM CDT Goals: Clinical Goals for the Shift: Patient will remain hemodynamically stable. Problem: Health Behavior: Goal: Understanding of discharge needs will improve Outcome: Progressing Problem: Lack of Knowledge: Goal: Verbalization of understanding the information provided will improve Outcome: Progressing Problem: Physical Regulation: Goal: Complications related to the disease process, condition or treatment will be avoided or minimized Outcome: Progressing Problem: Activity: Goal: Ability to perform activities at highest level will improve Outcome: Progressing Problem: Lack of Knowledge: Goal: Knowledge of disease or condition will improve Outcome: Progressing Goal: Knowledge of the prescribed therapeutic regimen will improve Outcome: Progressing Goal: Knowledge of prevention and discharge planning will improve Outcome: Progressing Problem: Coping: Goal: Ability to adjust to condition or change in health will improve Outcome: Progressing Goal: Ability to identify and develop effective coping behavior will improve Outcome: Progressing Problem: Fluid Volume: Goal: Ability to maintain a balanced intake and output will improve Outcome: Progressing Problem: Health Behavior: Goal: Ability to manage health-related needs will improve Outcome: Progressing Goal: Ability to identify and utilize available resources and services will improve Outcome: Progressing * Plan of Sandhya - Minerva Vail RN - 10/28/2021 3:53 AM CDT Goals: Clinical Goals for the Shift: Patient will remain hemodynamically stable. Summary: Problem: Health Behavior: Goal: Understanding of discharge needs will improve Outcome: Progressing Problem: Lack of Knowledge: Goal: Verbalization of understanding the information provided will improve Outcome: Progressing Problem: Physical Regulation: Goal: Complications related to the disease process, condition or treatment will be avoided or minimized Outcome: Progressing Problem: Lack of Knowledge: Goal: Knowledge of disease or condition will improve Outcome: Progressing Goal: Knowledge of the prescribed therapeutic regimen will improve Outcome: Progressing Goal: Knowledge of prevention and discharge planning will improve Outcome: Progressing Problem: Coping: Goal: Ability to adjust to condition or change in health will improve Outcome: Progressing Goal: Ability to identify and develop effective coping behavior will improve Outcome: Progressing Problem: Fluid Volume: Goal: Ability to maintain a balanced intake and output will improve Outcome: Progressing Problem: Health Behavior: Goal: Ability to manage health-related needs will improve Outcome: Progressing Goal: Ability to identify and utilize available resources and services will improve Outcome: Progressing Problem: Activity: Goal: Ability to perform activities at highest level will improve Outcome: Not Progressing * Plan of Care - Sarita Petty RN - 10/27/2021 3:41 PM CDT CM Initial Assessment Interview Note Information Obtained From: Patient (10/27/211539) Admission Source: ED Impression: c/o vomiting Plan Includes: Assessment and DC planning Primary Source of Transportation: Health Insurance Coverage: [employer] Prescription Coverage: yes Pharmacy: [facility] Primary Care Provider: No, Physician Prior to Admission: Primary Caregiver: Self Support System: Family members Home Care Services: No Durable Medical Equipment: Home Modification Assessment (railes in bathroom) Living Arrangements: Family members Type of Residence: Private residence Steps in home? : Yes, Outside of home, Yes, Inside home Number of steps inside:: 12 steps Number of steps outside:: 1 steps (10/27/211539) SDOH: Transportation Needs: Not on file Financial Resource Strain: Not on file Housing Stability: Not on file Social Connections: Not on file Tobacco Use: Low Risk ??? Smoking Tobacco Use: Never Smoker ??? Smokeless Tobacco Use: Never Used Social History Substance and Sexual Activity Alcohol Use Not Currently Substance Delivery Method Questions Responses Method of Use Smoking Current/Former Smokers - Passive Exposure Questions Responses Current/Former Smoker - passive exposure (e.g., household member smoking)? No PHQ Screening Potential discharge needs include: Dialysis: Behavioral Health Services: Behavioral Health Services: No (10/27/211539) Patient expects to be Discharged to: Private residence, (10/27/211539) Additional Information: DC plan discussed with patient. Goal is to return home- lives with her mom and daughter and her mom will be her ride home. Barrier to dc is resolution of DKA. No needs noted atthis time. Patient's Identified Problem/Goal Problem: Ensure acute medical needs are met and that patient has a safe discharge plan. Goal: Secure a discharge plan that patient/family are agreeable with and ensure patient has continuum of care. Case management will follow for discharge planning and send referrals as needed. Sarita Petty RN * Plan of Care - Lucas Govea RN - 10/27/2021 2:06 PM CDT Problem: Health Behavior: Goal: Understanding of discharge needs will improve Outcome: Progressing Problem: Lack of Knowledge: Goal: Verbalization of understanding the information provided will improve Outcome: Progressing Problem: Physical Regulation: Goal: Complications related to the disease process, condition or treatment will be avoided or minimized Outcome: Progressing Problem: Activity: Goal: Ability to perform activities at highest level will improve Outcome: Progressing Problem: Lack of Knowledge: Goal: Knowledge of disease or condition will improve Outcome: Progressing Goal: Knowledge of the prescribed therapeutic regimen will improve Outcome: Progressing Goal: Knowledge of prevention and discharge planning will improve Outcome: Progressing Problem: Coping: Goal: Ability to adjust to condition or change in health will improve Outcome: Progressing Goal: Ability to identify and develop effective coping behavior will improve Outcome: Progressing Problem: Fluid Volume: Goal: Ability to maintain a balanced intake and output will improve Outcome: Progressing Problem: Health Behavior: Goal: Ability to manage health-related needs will improve Outcome: Progressing Goal: Ability to identify and utilize available resources and services will improve Outcome: Progressing Goals: Clinical Goals for the Shift: stable vs and normal labs Summary: pt is more talkative today. No appetite, poor food intake.BS remain high * Provider Query - Herlinda Uribe RN - 10/27/2021 11:00 AM CDT Specify the type of Encephalopathy and document in the medical record and on the form below. _x__ Metabolic ___ Toxic ___ Medication induced (specify medication below) ___ Other, specify below ___ Clinically unable to determine type ___ Encephalopathy ruled out Present on Admission _x__Yes, resolved ___No ___Clinically unable to determine Additional Provider Response: Encephalopathy likely based on electrolyte imbalance on presentation Clinical Indicators/Treatments: 26 yo admitted with DKA/DM1. - ERP/DR. Case- ROS - H&P/Dr. LoBianco- neurologically- he was encephalopathic and agitated associated with severe dehydration and metabolic acidosis. - nursing shift assessment- LOC- lethargic, responds to stimulation, behavior- restless, calm. Treated with ivfs/bolus- 3000 NS, insulin drip- dc'ed, ativan/iv, reglan/iv, protonix/iv, monitor labs and vitals, resume home meds. Encephalopathy Encephalopathy The National [place] of Neurologic Disorders and Stroke (NINDS) of the NIH describes encephalopathy as ???any diffuse disease of the brain that alters brain function or structure?? . Encephalopathy may be acute (diffuse alteration in brain function due to systemic underlying cause,reversible and resolves when underlying cause is corrected, and without structural changes) or chronic (with structural changes, irreversible due to permanent brain damage, and may be generalized or focal) It is always regarded as the result of another disease or systemic illness Encephalopathy should only be documented in patients with global cerebral dysfunction. Simple confusion, lethargy, or somnolence is not encephalopathy Types: - Metabolic: fever, dehydration, electrolyte imbalance, hypoglycemia, hypoxemia, infection, tumor, cerebral infarction, cerebral ischemia, mitochondrial dysfunction - Toxic: due to drugs, poisonings, chemical imbalances, intoxication - Toxic-Metabolic: combination of toxic and metabolic factors - Septic: manifestation of severe sepsis - Hepatic: neurologic impairment in patients with severe end-stage liver disease. Document acuity and presence or absence of coma - Hypoxic or anoxic: permanent chronic brain damage due to sustained hypoxia - Hypoxic ischemic: applies to neonates only - Hypertensive - Traumatic: chronic traumatic encephalopathy - Brain tumor, increased intracranial pressure - Paraneoplastic - Sleep or sensory deprivation - Poor nutrition (including vitamin deficiencies such as Wernicke???s encephalopathy) The diagnosis of encephalopathy should warrant treatment of the underlying condition If etiology is not identified or if the patient???s mental status does not improve during hospitalization, encephalopathy is unlikely. If provider believes patient has encephalopathy in the absence of above clinical indicators, pleasedocument rationale and clinical impression in detail Encephalopathy References National [place] of Neurologic Disorders and Stroke. NINDS Encephalopathy Information Guide to Clinical Validation, Documentation and Coding, 2019 Edition, [employer] 360 Neurocritical Care Society Practice Update 2013: Metabolic Encephalopathies and Delirium Salbador Albarado MD, FACP, CCS and Nallely Rabago, CCS 2017 CDI Pocket, Guide pages 84-86. Charles Albarado., & Olga Rabago (2016). 2017 CDI Pocket Guide ?? 2011 [facility] [place], [place]., [address], [address], [place] [address]. [phone]. [employer]. ???Acute Inpatient PPS.?? Centers for Medicare and Medicaid Services. Accessed 06/19/17. https://www.cms.gov/Medicare/Medicare-Fee-for-Service- Payment/AcuteInpatientPPS/index.html <https://www.cms.gov/Medicare/Medicare-Fee-for- Service-Payment/AcuteInpatientPPS/index.html> [employer]. Diagnostic and statistical manual of mental disorders (5th ed.). [place], [place]: [employer], 2013. ???Details for title: 2017 Final Rule and Correction Notice Tables.?? Centers for Medicare and Medicaid Services Accessed 06/19/17. https://www.cms.gov/Medicare/Medicare-Fee-for-Service- Payment/AcuteInpatientPPS/XZ4861-HTGZ-Qpmhr-Dbnj-Mdvl-Pzmr-Nogcy/UO0125-HANW-Dlw al- Rule-Tables.html <https://www.cms.gov/Medicare/Medicare-Fee-for-Service- Payment/AcuteInpatientPPS/WF2594-RMGI-Zjngm-Er> . ???Encephalopathy Information Page.?? National [place] of Neurologic Disorders and Stroke. Accessed on 06/19/17. https://www.ninds.nih.gov/Disorders/All-Disorders/Encephalopathy- Information-Page <https://www.ninds.nih.gov/Disorders/All-Disorders/Encephalopathy- Information-Page> . The ICD-10 Classification of Mental and Behavioural Disorders: Clinical Descriptions and Diagnostic Guidelines. [place]: World Health Organization, 1992. http://apps.who.int/iris/handle/07248/29208. http://apps.who.int/iris/handle/63333/75242. Use of terms such as likely, suspected, possible, or probable (associated with a specific diagnosisthat is being evaluated, monitored, or treated as if it exists) are acceptable and can be coded in the inpatient setting when documented at the time of discharge. This documentation will become part of the patient???s medical record. Sincerely, TONE uR[employer], CCDS Certified Clinical Junior Software Developer [phone] * Plan of Care - Gilma Harding RN - 10/27/2021 4:32 AM CDT Problem: Health Behavior: Goal: Understanding of discharge needs will improve Outcome: Progressing Problem: Lack of Knowledge: Goal: Verbalization of understanding the information provided will improve Outcome: Progressing Problem: Physical Regulation: Goal: Complications related to the disease process, condition or treatment will be avoided or minimized Outcome: Progressing Problem: Activity: Goal: Ability to perform activities at highest level will improve Outcome: Progressing Problem: Lack of Knowledge: Goal: Knowledge of disease or condition will improve Outcome: Progressing Goal: Knowledge of the prescribed therapeutic regimen will improve Outcome: Progressing Goal: Knowledge of prevention and discharge planning will improve Outcome: Progressing Problem: Coping: Goal: Ability to adjust to condition or change in health will improve Outcome: Progressing Goal: Ability to identify and develop effective coping behavior will improve Outcome: Progressing Problem: Fluid Volume: Goal: Ability to maintain a balanced intake and output will improve Outcome: Progressing Problem: Health Behavior: Goal: Ability to manage health-related needs will improve Outcome: Progressing Goal: Ability to identify and utilize available resources and services will improve Outcome: Progressing Goals: Clinical Goals for the Shift: stable vs and normal labs Summary: vital signs stable. No complaints of pain or discomfort voiced. Ivf's infusing at 50mls/hr. Ambulates to bathroom with assistance of one. Started menses. Blood sugars stable. * Plan of Care - Marina Del Valle RN - 10/26/2021 2:12 PM CDT Goals: Clinical Goals for the Shift: vss. O2 sat wnl blood sugar wnl. increase po intake. increase activity. maintain skin integrity and safety. Summary: vss. O2 sat wnl per ra. Monitor SR. Denies discomfort. IV fluids infusing without diff. Upto bsc with stand by assist of 1 staff. Voiding without diff. No BM. Mom called this morning, updates and plan of care given. Appears to have slept most this shift. Declines diet, however in taking ice chips and popsicles. Safety and skin integrity maintained. Problem: Health Behavior: Goal: Understanding of discharge needs will improve Outcome: Progressing Problem: Lack of Knowledge: Goal: Verbalization of understanding the information provided will improve Outcome: Progressing Problem: Physical Regulation: Goal: Complications related to the disease process, condition or treatment will be avoided or minimized Outcome: Progressing Problem: Lack of Knowledge: Goal: Knowledge of disease or condition will improve Outcome: Progressing Goal: Knowledge of the prescribed therapeutic regimen will improve Outcome: Progressing Goal: Knowledge of prevention and discharge planning will improve Outcome: Progressing Problem: Coping: Goal: Ability to adjust to condition or change in health will improve Outcome: Progressing Goal: Ability to identify and develop effective coping behavior will improve Outcome: Progressing Problem: Fluid Volume: Goal: Ability to maintain a balanced intake and output will improve Outcome: Progressing Problem: Health Behavior: Goal: Ability to manage health-related needs will improve Outcome: Progressing Goal: Ability to identify and utilize available resources and services will improve Outcome: Progressing Problem: Activity: Goal: Ability to perform activities at highest level will improve Outcome: Not Progressing * Plan of Care - Sivakumar Monet RN - 10/26/2021 4:12 AM CDT Problem: Health Behavior: Goal: Understanding of discharge needs will improve Outcome: Progressing Problem: Lack of Knowledge: Goal: Verbalization of understanding the information provided will improve Outcome: Progressing Problem: Physical Regulation: Goal: Complications related to the disease process, condition or treatment will be avoided or minimized Outcome: Progressing Problem: Activity: Goal: Ability to perform activities at highest level will improve Outcome: Progressing Problem: Lack of Knowledge: Goal: Knowledge of disease or condition will improve Outcome: Progressing Goal: Knowledge of the prescribed therapeutic regimen will improve Outcome: Progressing Goal: Knowledge of prevention and discharge planning will improve Outcome: Progressing Problem: Coping: Goal: Ability to adjust to condition or change in health will improve Outcome: Progressing Goal: Ability to identify and develop effective coping behavior will improve Outcome: Progressing Problem: Fluid Volume: Goal: Ability to maintain a balanced intake and output will improve Outcome: Progressing Problem: Health Behavior: Goal: Ability to manage health-related needs will improve Outcome: Progressing Goal: Ability to identify and utilize available resources and services will improve Outcome: Progressing Goals: Clinical Goals for the Shift: Maintain comfort and safety. Stable V/S's. Adequate I@O's. Stable blood sugars. Summary: Patient has been drowsy but A/O x 4. Has denied any pain or discomfort. Respirations have been even and unlabored. Has remained on RA/ SpO2 has been maintained in the 90's. Has taken PO fluids without difficulties. Urine output has been adequate. No stools this shift. V/S's have been stable. Remains on a insulin drip. No visitors this shift. * Plan of Care - Marina Del Valle RN - 10/25/2021 3:49 PM CDT Goals: Clinical Goals for the Shift: vss. O 2 sat wnl per ra. pain at tolerable level. blood sugar wnl. maintain safety and skin integrity. Summary: vss. O 2 sat wnl per ra. Denies discomfort. However request Ice pack for head. Iv fluids continue to infuse without diff. Voiding without diff per bedpan, suff amt. Ua sent and resulted. Taking ice chips and popsicles, jeffry well. Safety and skin integrity maintained. Sleeping off/on. Mom atbedside this afternoon. Problem: Lack of Knowledge: Goal: Verbalization of understanding the information provided will improve Outcome: Progressing Problem: Physical Regulation: Goal: Complications related to the disease process, condition or treatment will be avoided or minimized Outcome: Progressing Problem: Lack of Knowledge: Goal: Knowledge of disease or condition will improve Outcome: Progressing Goal: Knowledge of the prescribed therapeutic regimen will improve Outcome: Progressing Goal: Knowledge of prevention and discharge planning will improve Outcome: Progressing Problem: Fluid Volume: Goal: Ability to maintain a balanced intake and output will improve Outcome: Progressing Problem: Health Behavior: Goal: Understanding of discharge needs will improve Outcome: Not Progressing Problem: Activity: Goal: Ability to perform activities at highest level will improve Outcome: Not Progressing Problem: Coping: Goal: Ability to adjust to condition or change in health will improve Outcome: Not Progressing Goal: Ability to identify and develop effective coping behavior will improve Outcome: Not Progressing Problem: Health Behavior: Goal: Ability to manage health-related needs will improve Outcome: Not Progressing Goal: Ability to identify and utilize available resources and services will improve Outcome: Not Progressing * Plan of Care - Sivakumar Monet RN - 10/25/2021 4:35 AM CDT Problem: Physical Regulation: Goal: Complications related to the disease process, condition or treatment will be avoided or minimized Outcome: Progressing Problem: Fluid Volume: Goal: Ability to maintain a balanced intake and output will improve Outcome: Progressing Problem: Health Behavior: Goal: Understanding of discharge needs will improve Outcome: Not Progressing Problem: Lack of Knowledge: Goal: Verbalization of understanding the information provided will improve Outcome: Not Progressing Problem: Activity: Goal: Ability to perform activities at highest level will improve Outcome: Not Progressing Problem: Lack of Knowledge: Goal: Knowledge of disease or condition will improve Outcome: Not Progressing Goal: Knowledge of the prescribed therapeutic regimen will improve Outcome: Not Progressing Goal: Knowledge of prevention and discharge planning will improve Outcome: Not Progressing Problem: Coping: Goal: Ability to adjust to condition or change in health will improve Outcome: Not Progressing Goal: Ability to identify and develop effective coping behavior will improve Outcome: Not Progressing Problem: Health Behavior: Goal: Ability to manage health-related needs will improve Outcome: Not Progressing Goal: Ability to identify and utilize available resources and services will improve Outcome: Not Progressing Goals: Clinical Goals for the Shift: Maintain comfort and safety. Improve neuro assessment. Improve lab results. Stable V/S's. Adequate I@O's. Summary: Patient has been lethargic throughout shift but has started responding a little more to staff. There has been no apparent signs of pain or discomfort. Respirations have been even and unlabored. Has remained on RA. SpO2 has been maintained in the 90's. Has been on the insulin drip throughout shift. Glucose levels has been controlled. Purwick was placed at begging of shift. Has been patentcollecting urine. Output has been adequate. No stools overnight. V/S's have been stable. Mom was here at beginning of the shift but left early. She did call in around 0001 for a update. No other visitors or phone calls. documented in this encounter Plan of Treatment Not on file documented as of this encounter Procedures Procedure Name Priority Date/Time Associated Diagnosis Comments POCT GLUCOSE DEVICE Routine 10/28/2021 5 :39 PM CDT POCT GLUCOSE DEVICE Routine 10/28/2021 5 :13 PM CDT POCT GLUCOSE DEVICE Routine 10/28/2021 4 :45 PM CDT HIT ANTIBODIES W/REFLEX TO SEROTONIN RELEASE ASSAY (CESAR) STAT 10/28/2021 1:20 PM CDT POCT GLUCOSE DEVICE Routine 10/28/2021 1 1:28 AM CDT POCT GLUCOSE DEVICE Routine 10/28/2021 7 :46 AM CDT EGFR Routine 10/28/2021 6:49 AM CDT DIFFERENTIAL AUTO Routine 10/28/2021 6:4 9 AM CDT CBC WITH AUTO DIFFERENTIAL Routine 10/28/2021 6:49 AM CDT PHOSPHORUS Routine 10/28/2021 6:49 AM CDT MAGNESIUM Routine 10/28/2021 6:49 AM CDT COMPREHENSIVE METABOLIC PANEL Routine 10/28/2021 6:49 AM CDT POCT GLUCOSE DEVICE Routine 10/28/2021 2 :05 AM CDT POCT GLUCOSE DEVICE Routine 10/27/2021 8 :49 PM CDT XR CHEST 1 VIEW ED Urgent/IP Urgent 10/27/2021 6:21 PM CDT POCT GLUCOSE DEVICE Routine 10/27/2021 4 :36 PM CDT POCT GLUCOSE DEVICE Routine 10/27/2021 1 1:29 AM CDT POCT GLUCOSE DEVICE Routine 10/27/2021 7 :29 AM CDT EGFR Routine 10/27/2021 5:26 AM CDT COMPREHENSIVE METABOLIC PANEL Routine 10/27/2021 5:26 AM CDT POCT GLUCOSE DEVICE Routine 10/27/2021 2 :16 AM CDT POCT GLUCOSE DEVICE Routine 10/26/2021 8 :54 PM CDT POCT GLUCOSE DEVICE Routine 10/26/2021 5 :06 PM CDT POCT GLUCOSE DEVICE Routine 10/26/2021 1 1:31 AM CDT POCT GLUCOSE DEVICE Routine 10/26/2021 7 :48 AM CDT EGFR Routine 10/26/2021 6:09 AM CDT DIFFERENTIAL AUTO Routine 10/26/2021 6:0 9 AM CDT CBC WITH AUTO DIFFERENTIAL Routine 10/26/2021 6:09 AM CDT HEMOGLOBIN A1C Add-On 10/26/2021 6:09 AM CDT COMPREHENSIVE METABOLIC PANEL Routine 10/26/2021 6:09 AM CDT POCT GLUCOSE DEVICE Routine 10/26/2021 6 :01 AM CDT POCT GLUCOSE DEVICE Routine 10/26/2021 4 :59 AM CDT POCT GLUCOSE DEVICE Routine 10/26/2021 4 :02 AM CDT POCT GLUCOSE DEVICE Routine 10/26/2021 2 :59 AM CDT POCT GLUCOSE DEVICE Routine 10/26/2021 2 :08 AM CDT POCT GLUCOSE DEVICE Routine 10/26/2021 1 :00 AM CDT POCT GLUCOSE DEVICE Routine 10/25/2021 1 1:58 PM CDT POCT GLUCOSE DEVICE Routine 10/25/2021 1 1:02 PM CDT EGFR Timed 10/25/2021 10:59 PM CDT BASIC METABOLIC PANEL Timed 10/25/2021 10:59 PM CDT POCT GLUCOSE DEVICE Routine 10/25/2021 1 0:03 PM CDT POCT GLUCOSE DEVICE Routine 10/25/2021 9 :03 PM CDT POCT GLUCOSE DEVICE Routine 10/25/2021 8 :00 PM CDT POCT GLUCOSE DEVICE Routine 10/25/2021 7 :12 PM CDT EGFR Timed 10/25/2021 6:29 PM CDT BASIC METABOLIC PANEL Timed 10/25/2021 6:29 PM CDT POCT GLUCOSE DEVICE Routine 10/25/2021 6 :19 PM CDT POCT GLUCOSE DEVICE Routine 10/25/2021 5 :21 PM CDT POCT GLUCOSE DEVICE Routine 10/25/2021 4 :20 PM CDT POCT GLUCOSE DEVICE Routine 10/25/2021 3 :18 PM CDT POCT GLUCOSE DEVICE Routine 10/25/2021 2 :17 PM CDT POCT GLUCOSE DEVICE Routine 10/25/2021 1 :19 PM CDT POCT GLUCOSE DEVICE Routine 10/25/2021 1 2:19 PM CDT POCT GLUCOSE DEVICE Routine 10/25/2021 1 2:17 PM CDT EGFR Timed 10/25/2021 12:15 PM CDT BASIC METABOLIC PANEL Timed 10/25/2021 12:15 PM CDT URINALYSIS AND REFLEX TO MICROSCOPIC AND CULTURE Routine 10/25/2021 12:09 PM CDT URINALYSIS, MICROSCOPIC ONLY Routine 10/25/2021 12:09 PM CDT URINE CULTURE Routine 10/25/2021 12:09 PM CDT POCT GLUCOSE DEVICE Routine 10/25/2021 1 1:14 AM CDT POCT GLUCOSE DEVICE Routine 10/25/2021 1 0:11 AM CDT POCT GLUCOSE DEVICE Routine 10/25/2021 9 :07 AM CDT POCT GLUCOSE DEVICE Routine 10/25/2021 8 :02 AM CDT POCT GLUCOSE DEVICE Routine 10/25/2021 7 :09 AM CDT POCT GLUCOSE DEVICE Routine 10/25/2021 6 :06 AM CDT POCT GLUCOSE DEVICE Routine 10/25/2021 5 :01 AM CDT EGFR Timed 10/25/2021 4:55 AM CDT DIFFERENTIAL AUTO Routine 10/25/2021 4:5 5 AM CDT CBC WITH AUTO DIFFERENTIAL Routine 10/25/2021 4:55 AM CDT RENAL FUNCTION PANEL Timed 10/25/2021 4:55 AM CDT POCT GLUCOSE DEVICE Routine 10/25/2021 4 :08 AM CDT POCT GLUCOSE DEVICE Routine 10/25/2021 3 :04 AM CDT POCT GLUCOSE DEVICE Routine 10/25/2021 2 :01 AM CDT POCT GLUCOSE DEVICE Routine 10/25/2021 1 :03 AM CDT POCT GLUCOSE DEVICE Routine 10/25/2021 1 2:17 AM CDT EGFR Timed 10/25/2021 12:00 AM CDT BLOOD CULTURE STAT 10/25/2021 12:00 AM CDT RENAL FUNCTION PANEL Timed 10/25/2021 12:00 AM CDT POCT GLUCOSE DEVICE Routine 10/24/2021 1 1:10 PM CDT POCT GLUCOSE DEVICE Routine 10/24/2021 1 0:04 PM CDT POCT GLUCOSE DEVICE Routine 10/24/2021 9 :01 PM CDT POCT GLUCOSE DEVICE Routine 10/24/2021 8 :03 PM CDT POCT GLUCOSE DEVICE Routine 10/24/2021 7 :21 PM CDT POCT GLUCOSE DEVICE Routine 10/24/2021 6 :12 PM CDT SEPSIS LACTATE WITH REFLEX Timed 10/24/2021 5:10 PM CDT EGFR Timed 10/24/2021 5:10 PM CDT INFECTION PREVENTION MRSA ONLY (STAPHYLOCOCCUS AUREUS) PCR Routine 10/24/2021 5:10 PM CDT RENAL FUNCTION PANEL Timed 10/24/2021 5:10 PM CDT POCT GLUCOSE DEVICE Routine 10/24/2021 5 :07 PM CDT POCT GLUCOSE DEVICE Routine 10/24/2021 4 :09 PM CDT POCT GLUCOSE DEVICE Routine 10/24/2021 3 :10 PM CDT POCT GLUCOSE DEVICE Routine 10/24/2021 2 :13 PM CDT BLOOD GAS, VENOUS Routine 10/24/2021 2:1 0 PM CDT SEPSIS LACTATE WITH REFLEX Timed 10/24/2021 1:14 PM CDT EGFR STAT 10/24/2021 1:14 PM CDT COMPREHENSIVE METABOLIC PANEL STAT 10/24/2021 1:14 PM CDT POCT GLUCOSE DEVICE Routine 10/24/2021 1 :05 PM CDT POCT GLUCOSE DEVICE Routine 10/24/2021 1 1:49 AM CDT POCT GLUCOSE DEVICE Routine 10/24/2021 1 0:50 AM CDT POCT GLUCOSE DEVICE Routine 10/24/2021 9 :37 AM CDT BLOOD GAS, ARTERIAL STAT 10/24/2021 9 :24 AM CDT SEPSIS LACTATE WITH REFLEX Routine 10/24/2021 9:08 AM CDT CBC WITH AUTO DIFFERENTIAL STAT 10/24/2021 9:08 AM CDT MANUAL DIFFERENTIAL STAT 10/24/2021 9 :08 AM CDT BLOOD CULTURE STAT 10/24/2021 9:08 AM CDT PROTIME-INR STAT 10/24/2021 9:08 AM CDT PHOSPHORUS STAT 10/24/2021 9:08 AM CDT MAGNESIUM Routine 10/24/2021 9:08 AM CDT EGFR STAT 10/24/2021 9:07 AM CDT COMPREHENSIVE METABOLIC PANEL STAT 10/24/2021 9:07 AM CDT XR CHEST 1 VIEW ED 10/24/2021 8:52 AM CDT INFLUENZA A/B, RSV, AND COVID-19 PCR Routine 10/24/2021 8:37 AM CDT documented in this encounter Results * (ABNORMAL) POCT glucose (10/28/2021 5:39 PM CDT) Glucose, POC 67(L) 71 - 98 mg/dL [facility] ([place]) Blood 10/28/2021 5:39 PM CDT 10/28/2021 5:39 PM CDT us Mann Paris Jr., MD LAB POCT ORDERABLES - DEVICE Final Result [facility] ([place]) [address] [place] [address] * POCT glucose (10/28/2021 5:13 PM CDT) Glucose, POC 75 71 - 98 mg/dL [facility] ([place]) Blood 10/28/2021 5:13 PM CDT 10/28/2021 5:13 PM CDT Mann Paris Jr., MD LAB POCT ORDERABLES - DEVICE Final Result [facility] ([place]) [address] [place] [address] * (ABNORMAL) POCT glucose (10/28/2021 4:45 PM CDT) [facility] Glucose, POC 40(C) 71 - 98 mg/dL [facility] ([place]) Comment:Glu2: RN/ Notified Blood 10/28/2021 4:45 PM CDT 10/28/2021 4:45 PM CDT Mann Paris Jr., MD LAB POCT ORDERABLES - DEVICE Final Result Performing Organization Address [facility] Co de Phone Number [facility]OM[facility] ([place]) [address] [place] [address] * HIT Antibodies with Reflex to Serotonin Release Assay (CESAR) (10/28/2021 1:20 PM CDT) [facility] HIT antibodies Negative Negative KENZIE SAHU ([place]) Comment:Testing performed by : [facility], [address] [facility], [place]., [address] HIT Ab LAURA Units 0.00 0.00 - 0.99 units/mL [facility] ([place]) Comment: A positive HIT Ab (heparin PF4 antibody LAURA test) is extremely sensitive for heparin-induced thrombocytopenia (HIT), but not specific, since many patients exposed to heparin have positive antibody tests without developing HIT. Higher HIT Ab LAURA Units are associated with a higher likelihood of a positive serotonin release assay (CESAR) and a clinical course consistent with HIT. The 4T scoring system is a useful tool for pretest probability of HIT (Cuker et al, Blood 2012;120:4160). Both laboratory testing and clinical risk evaluation should be considered in determining an individual patient? s risk of HIT. Testing performed by: [facility], [address] [place]., [address] Blood 10/28/2021 1:20 PM CDT 10/28/2021 4:50 PM CDT Mann Paris Jr., MD LAB BLOOD ORDERABLE S Final Result Performing Organization Address City/[facility]/ZIP Co de Phone Number TOMY LUIS ALBERTO ([place]) 1 [facility] [place] [address] * (ABNORMAL) POCT glucose (10/28/2021 11:28 AM CDT) Glucose, POC 157(H) 71 - 98 mg/dL [facility] ([place]) Blood 10/28/2021 11:2 8 AM CDT 10/28/2021 11:28 AM CDT Mann Paris Jr., MD LAB POCT ORDERABLES - DEVICE Final Result Performing Organization Address [facility] Co de Phone Number TOMY [facility] ([place]) [address] [facility] [place] [address] * (ABNORMAL) POCT glucose (10/28/2021 7:46 AM CDT) Glucose, POC 284(H) 71 - 98 mg/dL [facility] ([place]) Blood 10/28/2021 7:46 AM CDT 10/28/2021 7:46 AM CDT Mann Paris Jr., MD LAB POCT ORDERABLES - DEVICE Final Result Performing Organization Address City/[facility]/ZIP Co de Phone Number TOMY SAHU ([place]) 1 [facility] [place] [address] * eGFR (10/28/2021 6:49 AM CDT) Pathologist [facility] eGFR 133 mL/min/1. 73 m2 TOMY LUIS ALBERTO ([place]) Comment: Interpretive Data Reference Interval Normal ?>/= [...] interpretive data was last reviewed 2021. Blood 10/28/2021 6:49 AM CDT 10/28/2021 7:03 AM CDT us Dominic Camara MD LAB BLOOD ORDERABLES Final Resu lt [facility]OM[facility] ([place]) 1 [facility] [place] [address] * Differential, auto (10/28/2021 6:49 AM CDT) Pathologist [facility] Neutrophil abs 4.3 1.7 - 6.5 K/cumm [facility] ([place]) Imm gran abs 0.0 0.0 - 0.1 K/cumm [facility] ([place]) Lymphocyte abs 1.6 0.8 - 3.3 K/cumm [facility] ([place]) Monocyte abs 0.6 0.2 - 0.8 K/cumm [facility] ([place]) Eosinophil abs 0.0 0.0 - 0.5 K/cumm [facility] ([place]) Basophil abs 0.0 0.0 - 0.1 K/cumm [facility] ([place]) Neutrophil pct 66.0 % [facility] ([place]) Comment: Interpretive [...] was last revised on 2017. Lymphocyte pct 23.8 % [facility] ([place]) Comment: Interpretive Data Percent cell count reference ranges are not reported, since discordance with absolute values may lead to misinterpretation of CBC data. Current Interpretive Data was last revised on 2017. Monocyte pct 9.2 % [facility] ([place]) Comment: Interpretive Data [...] Data was last revised on 2017. Blood 10/28/2021 6:49 AM CDT 10/28/2021 7:03 AM CDT Winter Pickering DO LAB BLOOD ORDERABLES Final Resu lt [facility] ([place]) 1 [facility] [place] [address] * (ABNORMAL) CBC with auto differential (10/28/2021 6:49 AM CDT) WBC 6.5 3.8 - 9.9 K/cumm [facility] ([place]) Hgb 12.7 11.9 - 15.5 g/dL [facility] ([place]) Hct 39.5 35.6 - 45.5 % [facility] ([place]) Plt 134(L) 150 - 400 K/cumm [facility] ([place]) MPV 10.0 9.1 - 12.3 fL [facility] ([place]) RBC 4.71 3.90 - 5.20 M/cumm [facility] ([place]) MCV 83.9 81.3 - 96.4 fL [facility] ([place]) MCH 27.0(L) 27.1 - 33.3 pg [facility] ([place]) MCHC 32.2(L) 32.3 - 35.7 g/dL [facility] ([place]) RDW CV 14.8 11.1 - 14.9 % [facility] ([place]) RDW SD 45.2 35.7 - 48.1 fL [facility] ([place]) NRBC abs 0.00 0.00 - 0.01 K/cumm [facility] ([place]) Blood 10/28/2021 6:49 AM CDT 10/28/2021 7:03 AM CDT Winter Pickering DO LAB BLOOD ORDERABLES Final Resu lt [facility] ([place]) 1 [facility] [employer] [place] [address] * Phosphorus (10/28/2021 6:49 AM CDT) Phosphorus, pl 2.7 2.3 - 4.5 mg/dL [facility] ([place]) Blood 10/28/2021 6:49 AM CDT 10/28/2021 7:03 AM CDT Winter Anand DO LAB BLOOD ORDERABLES Final Resu lt Performing Organization Address City/[facility]/ZIP Co de Phone Number [facility] ([place]) 1 [facility] [place] [address] * Magnesium (10/28/2021 6:49 AM CDT) Magnesium 1.9 1.4 - 2.5 mg/dL [facility] ([place]) Blood 10/28/2021 6:49 AM CDT 10/28/2021 7:03 AM CDT Winter Pickering DO LAB BLOOD ORDERABLES Final Resu lt Performing Organization Address [facility] de Phone Number [facility]OM[facility] ([place]) 1 [facility] [place] [address] * (ABNORMAL) Comprehensive metabolic panel (10/28/2021 6:49 AM CDT) Sodium 137 135 - 145 mmol/L [facility] ([place] Potassium, pl 4.4 3.3 - 4.9 mmol/L [facility] ([place]) Chloride 99 97 - 110 mmol/L [facility] ([place]) CO2 23 22 - 32 mmol/L [facility] ([place]) Anion gap 15 2 - 15 mmol/L [facility] ([place]) BUN 14 8 - 25 mg/dL [facility] ([place] Creatinine 0.50(L) 0.60 - 1.10 mg/dL [facility] ([place]) Glucose 298(H) 70 - 199 mg/dL [facility] ([place]) [...] 5.0 g/dL [facility] ([place]) Alk phos 92 40 - 130 Units/L [facility] ([place]) ALT 20 7 - 45 Units/L [facility] ([place]) AST 16 10 - 45 Units/L [facility] ([place]) Blood 10/28/2021 6:49 AM CDT 10/28/2021 7:03 AM CDT us Dominic Camara MD LAB BLOOD ORDERABLES Final Resu lt Performing Organization Address [facility] Co de Phone Number [facility] ([place]) 1 [facility] [place] [address] * (ABNORMAL) POCT glucose (10/28/2021 2:05 AM CDT) Glucose, POC 229(H) 71 - 98 mg/dL [facility] ([place]) Comment:Glu2: RN/ Notified Blood 10/28/2021 2:05 AM CDT 10/28/2021 2:05 AM CDT us Farida Chaney MD LAB POCT ORDERABLES - DEVIC E Final Result Performing Organization Address City/[facility]/ZIP Co de Phone Number [facility] ([place]) 1 [facility] [place] [address] * (ABNORMAL) POCT glucose (10/27/2021 8:49 PM CDT) Glucose, POC 110(H) 71 - 98 mg/dL [facility] ([place]) Blood 10/27/2021 8:49 PM CDT 10/27/2021 8:49 PM CDT Farida Chaney MD LAB POCT ORDERABLES - DEVIC E Final Result [facility] ([place]) 1 [facility] [place] [address] * XR Chest 1 View (10/27/2021 6:21 PM CDT) Anatomical Region Laterality Modality Body, Chest N/A Computed Radiogr aphy 10/27/2021 6:36 PM CDT Narrative 10/27/2021 6:45 PM CDT EXAM DESCRIPTION: ?? XR CHEST 1 VIEW REASON FOR STUDY: ?? check PICC position ?? PICC line ?? TECHNIQUE: ?? One ??radiographic view of the chest acquired. COMPARISON: ?? 10/24/2021. FINDINGS: LUNGS/PLEURA: ?? No consolidation. ??No effusion or pneumothorax. HEART/MEDIASTINUM: ?? The cardiac silhouette and mediastinal contours are within normal limits. HARDWARE/LINES/TUBES: ?? PICC line is in place from a right upper extremity approach. ??The PICC line extends craniad within the internal jugular vein, for a distance of approximately 3 cm before turning back upon itself and ending in the proximal SVC. ??Repositioning is recommended. BONES: ?? No acute findings. OTHER: ?? No other significant finding. IMPRESSION: ?? 1. ?? Right-sided PICC line, looped in the internal jugular vein as discussed above. ??Repositioning of the PICC line and follow-up radiograph recommended. 2. ?? No consolidation. ??No effusion or pneumothorax. Findings were discussed with MARY David via phone call at 6:45 p.m. on 10/27/2021 THIS IS AN ELECTRONICALLY VERIFIED FINAL REPORT 10/27/2021 6:45 PM - Electronically signed by ??Marina Wen M.D. TB: TB D: ??10/27/2021 6:45 PM T: ??10/27/2021 6:45 PM Report ID: [id number] Reading Location: ??[id number] Procedure Note Marina Mccallum MD - 10/27/2021 EXAM DESCRIPTION: XR CHEST 1 VIEW REASON FOR STUDY: check PICC position PICC line TECHNIQUE: One radiographic view of the chest acquired. COMPARISON: 10/24/2021. FINDINGS: LUNGS/PLEURA: No consolidation. No effusion or pneumothorax. HEART/MEDIASTINUM: The cardiac silhouette and mediastinal contours are within normal limits. HARDWARE/LINES/TUBES: PICC line is in place from a right upper extremity approach. The PICC line extends craniad within the internal jugular vein,for a distance of approximately 3 cm before turning back upon itself andending in the proximal SVC. Repositioning is recommended. BONES: No acute findings. OTHER: No other significant finding. IMPRESSION: 1. Right-sided PICC line, looped in the internal jugular vein asdiscussed above. Repositioning of the PICC line and follow-up radiographrecommended. 2. No consolidation. No effusion or pneumothorax. Findings were discussed with MARY David via phone call at 6:45 p.m. on 10/27/2021 THIS IS AN ELECTRONICALLY VERIFIED FINAL REPORT 10/27/2021 6:45 PM - Electronically signed by Marina Wen M.D. TB: TB Report ID: [id number] Reading Location: [id number] Farida Chaney MD IMG XR PROCEDURES Final Res ult * (ABNORMAL) POCT glucose (10/27/2021 4:36 PM CDT) Glucose, POC 131(H) 71 - 98 mg/dL TOMY [facility]HU ([place]) Blood 10/27/2021 4:36 PM CDT 10/27/2021 4:36 PM CDT Farida Chaney MD LAB POCT ORDERABLES - DEVIC E Final Result Performing Organization Address City/[facility]/ZIP Co de Phone Number TOMY SAHU ([place]) 1 [facility] [place] [address] * (ABNORMAL) POCT glucose (10/27/2021 11:29 AM CDT) Glucose, POC 151(H) 71 - 98 mg/dL TOMY SAHU ([place]) Blood 10/27/2021 11:2 9 AM CDT 10/27/2021 11:29 AM CDT us Farida Chaney MD LAB POCT ORDERABLES - DEVIC E Final Result Performing Organization Address [facility] Co de Phone Number TOMY SAHU ([place]) 1 [facility] [place] [address] * (ABNORMAL) POCT glucose (10/27/2021 7:29 AM CDT) Glucose, POC 238(H) 71 - 98 mg/dL [facility] ([place]) Blood 10/27/2021 7:29 AM CDT 10/27/2021 7:29 AM CDT us Winter Pickering DO LAB POCT ORDERABLES - DEVICE Fi nal Result Performing Organization Address City/[facility] Co de Phone Number TOMY SAHU ([place]) 1 [facility] [place] [address] * eGFR (10/27/2021 5:26 AM CDT) eGFR 151 mL/min/1. 73 m2 [facility] ([place]) Comment: Interpretive Data Reference Interval Normal ?>/= [...] interpretive data was last reviewed 2021. Blood 10/27/2021 5:26 AM CDT 10/27/2021 6:08 AM CDT us Dominic Camara MD LAB BLOOD ORDERABLES Final Resu lt [facility] ([place]) 1 [facility] Department of Laboratories [place], [place] [id number] * (ABNORMAL) Comprehensive metabolic panel (10/27/2021 5:26 AM CDT) Sodium 140 135 - 145 mmol/L [facility] ([place] Potassium, pl 3.6 3.3 - 4.9 mmol/L [facility] ([place]) Chloride 103 97 - 110 mmol/L [facility] ([place]) CO2 27 22 - 32 mmol/L [facility] ([place]) Anion gap 10 2 - 15 mmol/L [facility] ([place]) BUN 9 8 - 25 mg/dL [facility] ([place]) Creatinine 0.30(L) 0.60 - 1.10 mg/dL [facility] ([place]) Glucose 253(H) 70 - 199 mg/dL [facility] ([place]) [...] interpretive data was last revised 2017. Calcium 8.5 8.5 - 10.3 mg/dL [facility] ([place]) Bilirubin, total 0.8 0.1 - 1.2 mg/dL [facility] ([place]) Protein, pl 5.7(L) 6.5 - 8.5 g/dL [facility] ([place]) Albumin 3.3(L) 3.5 - 5.0 g/dL [facility] ([place]) Alk phos 88 40 - 130 Units/L [facility] ([place]) ALT 17 7 - 45 Units/L [facility] ([place]) AST 16 10 - 45 Units/L [facility] ([place]) Blood 10/27/2021 5:26 AM CDT 10/27/2021 6:08 AM CDT us Dominic Camara MD LAB BLOOD ORDERABLES Final Resu lt TOMY SAHU ([place]) [address] [facility] [place] [address] * (ABNORMAL) POCT glucose (10/27/2021 2:16 AM CDT) [facility] Signature Glucose, POC 183(H) 71 - 98 mg/dL [facility] ([place]) Blood 10/27/2021 2:16 AM CDT 10/27/2021 2:16 AM CDT us Sanjuanita Enamorado MD LAB POCT ORDERABLES - DEVICE Final Result TOMY SA[facility] ([place]) [address] [facility] [place] [address] * (ABNORMAL) POCT glucose (10/26/2021 8:54 PM CDT) Glucose, POC 179(H) 71 - 98 mg/dL TOMY [facility] ([place]) Blood 10/26/2021 8:54 PM CDT 10/26/2021 8:54 PM CDT us Sanjuanita Enamorado MD LAB POCT ORDERABLES - DEVICE Final Result TOMY SA[facility] ([place]) 1 [facility] [place] [address] * (ABNORMAL) POCT glucose (10/26/2021 5:06 PM CDT) Glucose, POC 161(H) 71 - 98 mg/dL TOMY SAHU ([place]) Blood 10/26/2021 5:06 PM CDT 10/26/2021 5:06 PM CDT us Sanjuanita Enamorado MD LAB POCT ORDERABLES - DEVICE Final Result Performing Organization Address [facility]/ZIP Co de Phone Number TOMY SAHU ([place]) 1 [facility] [place] [address] * (ABNORMAL) POCT glucose (10/26/2021 11:31 AM CDT) Glucose, POC 172(H) 71 - 98 mg/dL TOMY SA[facility] ([place]) Blood 10/26/2021 11:3 1 AM CDT 10/26/2021 11:31 AM CDT us Dominic Camara MD LAB POCT ORDERABLES - DEVICE Fi nal Result Performing Organization Address City/[facility]/ZIP Co de Phone Number TOMY SAHU ([place]) [address] [facility] [place] [address] * (ABNORMAL) POCT glucose (10/26/2021 7:48 AM CDT) [facility] Glucose, POC 240(H) 71 - 98 mg/dL TOMY SAHU ([place]) Blood 10/26/2021 7:48 AM CDT 10/26/2021 7:48 AM CDT Dominic Camara MD LAB POCT ORDERABLES - DEVICE Fi nal Result Performing Organization Address City/[facility]/ZIP Co de Phone Number TOMY SAHU ([place]) 1 [facility] [place] [address] * (ABNORMAL) Hemoglobin A1c (10/26/2021 6:09 AM CDT) [facility] Hgb A1C 7.6(H) 4.0 - 5.6 % TOMY SAHU ([place]) Estimated Average Glucose 171 mg/dL TOMY ASHU ([place]) Comment: The ADA recommends reporting an estimated Average Glucose (eAG) with all Hemoglobin A1c results using the equation derived from a study of 507 normal and diabetic adults. ??Minority populations were underrepresented and children were not included. ?? (Diabetes Care 31:3648-7283, 2008). ??The eAG is not equivalent to a fasting glucose. Blood 10/26/2021 6:09 AM CDT 10/27/2021 10:32 AM CDT Winter Pickering DO LAB BLOOD ORDERABLES Final Resu lt TOMY SAHU ([place]) 1 [facility] [place] [address] * eGFR (10/26/2021 6:09 AM CDT) [facility] eGFR 144 mL/min/1. 73 m2 TOMY SAHU ([place]) Comment: [...] interpretive data was last reviewed 2021. Blood 10/26/2021 6:09 AM CDT 10/26/2021 6:12 AM CDT us Dominic Camara MD LAB BLOOD ORDERABLES Final Resu lt TOMY SAHU ([place]) 1 [facility] [place] [address] * (ABNORMAL) Differential, auto (10/26/2021 6:09 AM CDT) Neutrophil abs 6.1 1.7 - 6.5 K/cumm [facility] ([place]) Imm gran abs 0.0 0.0 - 0.1 K/cumm [facility] ([place]) Lymphocyte abs 1.8 0.8 - 3.3 K/cumm [facility] ([place]) Monocyte abs 1.2(H) 0.2 - 0.8 K/cumm [facility] ([place]) Eosinophil abs 0.0 0.0 - 0.5 K/cumm [facility] ([place]) Basophil abs 0.0 0.0 - 0.1 K/cumm [facility] ([place]) Neutrophil pct 66.6 % [facility] ([place]) Comment: Interpretive [...] was last revised on 2017. Lymphocyte pct 19.9 % [facility] ([place]) Comment: Interpretive Data Percent cell count reference ranges are not reported, since discordance with absolute values may lead to misinterpretation of CBC data. Current Interpretive Data was last revised on 2017. Monocyte pct 13.0 % [facility] ([place]) Comment: Interpretive Data [...] Data was last revised on 2017. Blood 10/26/2021 6:09 AM CDT 10/26/2021 6:12 AM CDT us Dominic Camara MD LAB BLOOD ORDERABLES Final Resu lt TOMY SAHU ([place]) 1 [facility] [place] [address] * (ABNORMAL) Comprehensive metabolic panel (10/26/2021 6:09 AM CDT) Sodium 144 135 - 145 mmol/L TOMY SA[facility] ([place]) Potassium, pl 3.5 3.3 - 4.9 mmol/L TOMY [facility] ([place]) Chloride 107 97 - 110 mmol/L [facility] ([place]) CO2 26 22 - 32 mmol/L [facility] ([place]) Anion gap 11 2 - 15 mmol/L [facility] ([place]) BUN 8 8 - 25 mg/dL [facility] ([place]) Creatinine 0.36(L) 0.60 - 1.10 mg/dL [facility] ([place]) Glucose 200(H) 70 - 199 mg/dL [facility] ([place]) [...] 1.2 mg/dL [facility] ([place]) Protein, pl 5.3(L) 6.5 - 8.5 g/dL [facility] ([place]) Albumin 3.2(L) 3.5 - 5.0 g/dL [facility] ([place]) Alk phos 86 40 - 130 Units/L [facility] ([place]) ALT 17 7 - 45 Units/L [facility] ([place]) AST 22 10 - 45 Units/L [facility] ([place]) Blood 10/26/2021 6:09 AM CDT 10/26/2021 6:12 AM CDT us Dominic Camara MD LAB BLOOD ORDERABLES Final Resu lt [facility] ([place]) 1 [facility] [place] [address] * (ABNORMAL) CBC with auto differential (10/26/2021 6:09 AM CDT) WBC 9.1 3.8 - 9.9 K/cumm [facility] ([place]) Hgb 10.8(L) 11.9 - 15.5 g/dL [facility] ([place]) Hct 32.3(L) 35.6 - 45.5 % [facility] ([place]) Plt 151 150 - 400 K/cumm [facility] ([place]) MPV 9.1 9.1 - 12.3 fL [facility] ([place]) RBC 3.93 3.90 - 5.20 M/cumm [facility] ([place]) MCV 82.2 81.3 - 96.4 fL [facility] ([place]) MCH 27.5 27.1 - 33.3 pg [facility] ([place]) MCHC 33.4 32.3 - 35.7 g/dL [facility] ([place]) RDW CV 16.2(H) 11.1 - 14.9 % [facility] ([place]) RDW SD 48.8(H) 35.7 - 48.1 fL [facility] ([place]) NRBC abs 0.00 0.00 - 0.01 K/cumm [facility] ([place]) Blood 10/26/2021 6:09 AM CDT 10/26/2021 6:12 AM CDT us Dominic Camara MD LAB BLOOD ORDERABLES Final Resu lt TOMY [facility] ([place]) 1 [facility] [place] [address] * (ABNORMAL) POCT glucose (10/26/2021 6:01 AM CDT) Glucose, POC 169(H) 71 - 98 mg/dL [facility] ([place]) Blood 10/26/2021 6:01 AM CDT 10/26/2021 6:01 AM CDT Dominic Camara MD LAB POCT ORDERABLES - DEVICE Fi nal Result [facility] ([place]) 1 [facility] [place] [address] * (ABNORMAL) POCT glucose (10/26/2021 4:59 AM CDT) Glucose, POC 132(H) 71 - 98 mg/dL [facility] ([place]) Blood 10/26/2021 4:59 AM CDT 10/26/2021 4:59 AM CDT Dominic Camara MD LAB POCT ORDERABLES - DEVICE Fi nal Result TOMY SAHU ([place]) 1 [facility] [place] [address] * POCT glucose (10/26/2021 4:02 AM CDT) Glucose, POC 93 71 - 98 mg/dL [facility]OMY [facility] ([place]) Blood 10/26/2021 4:02 AM CDT 10/26/2021 4:02 AM CDT Dominic Camara MD LAB POCT ORDERABLES - DEVICE Fi nal Result Performing Organization Address City/[facility]/ZIP Co de Phone Number TOMY SAHU ([place]) 1 [facility] [place] [address] * (ABNORMAL) POCT glucose (10/26/2021 2:59 AM CDT) Glucose, POC 122(H) 71 - 98 mg/dL [facility] ([place]) Blood 10/26/2021 2:59 AM CDT 10/26/2021 2:59 AM CDT us Dominic Camara MD LAB POCT ORDERABLES - DEVICE Fi nal Result TOMY SAHU ([place]) 1 [facility] [place] [address] * (ABNORMAL) POCT glucose (10/26/2021 2:08 AM CDT) Glucose, POC 125(H) 71 - 98 mg/dL [facility]OMY [facility] ([place]) Blood 10/26/2021 2:08 AM CDT 10/26/2021 2:08 AM CDT Dominic Camara MD LAB POCT ORDERABLES - DEVICE Fi nal Result TOMY SAHU ([place]) 1 [facility] [place] [address] * (ABNORMAL) POCT glucose (10/26/2021 1:00 AM CDT) Glucose, POC 128(H) 71 - 98 mg/dL [facility] Blood 10/26/2021 1:00 AM CDT 10/26/2021 1:00 AM CDT Dominic Camara MD LAB POCT ORDERABLES - DEVICE Fi nal Result Performing Organization Address City/[facility]/ZIP Co de Phone Number TOMY SAHU ([place]) 1 [facility] [place] [address] * (ABNORMAL) POCT glucose (10/25/2021 11:58 PM CDT) Glucose, POC 108(H) 71 - 98 mg/dL [facility] Blood 10/25/2021 11:5 8 PM CDT 10/25/2021 11:58 PM CDT Dominic Camara MD LAB POCT ORDERABLES - DEVICE Fi nal Result TOMY SAHU ([place]) 1 [facility] [place] [address] * (ABNORMAL) POCT glucose (10/25/2021 11:02 PM CDT) Glucose, POC 112(H) 71 - 98 mg/dL TOMY [facility] ([place]) Blood 10/25/2021 11:0 2 PM CDT 10/25/2021 11:02 PM CDT Dominic Camara MD LAB POCT ORDERABLES - DEVICE Fi nal Result TOMY SAHU ([place]) 1 [facility] [place] [address] * eGFR (10/25/2021 10:59 PM CDT) eGFR 135 mL/min/1. 73 m2 TOMY [facility] ([place]) Comment: Interpretive Data Reference Interval Normal ?>/= [...] interpretive data was last reviewed 2021. Blood 10/25/2021 10:5 9 PM CDT 10/25/2021 11:08 PM CDT Dominic Camara MD LAB BLOOD ORDERABLES Final Resu lt Performing Organization Address City/[facility]/ZIP Co de Phone Number TOMY SAHU ([place]) 1 [facility] [employer] [place] [address] * (ABNORMAL) Basic metabolic panel (10/25/2021 10:59 PM CDT) Sodium 150(H) 135 - 145 mmol/L [facility] ([place]) Potassium, pl 3.1(L) 3.3 - 4.9 mmol/L [facility] ([place]) Chloride 114(H) 97 - 110 mmol/L [facility] ([place]) CO2 29 22 - 32 mmol/L [facility] ([place]) Anion gap 7 2 - 15 mmol/L [facility] ([place]) BUN 12 8 - 25 mg/dL [facility] ([place]) Creatinine 0.48(L) 0.60 - 1.10 mg/dL [facility] ([place]) Glucose 124 70 - 199 mg/dL [facility] ([place]) [...] - 10.3 mg/dL [facility] ([place]) Blood 10/25/2021 10:5 9 PM CDT 10/25/2021 11:08 PM CDT Dominic Camara MD LAB BLOOD ORDERABLES Final Resu lt Performing Organization Address City/[facility]/ZIP Co de Phone Number TOMY SAHU ([place]) 1 [facility] [employer] [place] [address] * (ABNORMAL) POCT glucose (10/25/2021 10:03 PM CDT) Glucose, POC 160(H) 71 - 98 mg/dL [facility] ([place]) Blood 10/25/2021 10:0 3 PM CDT 10/25/2021 10:03 PM CDT Dominic Camara MD LAB POCT ORDERABLES - DEVICE Fi nal Result TOMY SAHU ([place]) 1 [facility] [place] [address] * (ABNORMAL) POCT glucose (10/25/2021 9:03 PM CDT) Glucose, POC 158(H) 71 - 98 mg/dL [facility] ([place]) Blood 10/25/2021 9:03 PM CDT 10/25/2021 9:03 PM CDT Dominic Camara MD LAB POCT ORDERABLES - DEVICE Fi nal Result Performing Organization Address City/[facility]/ZIP Co de Phone Number TOMY SAHU ([place]) 1 [facility] [place] [address] * (ABNORMAL) POCT glucose (10/25/2021 8:00 PM CDT) Glucose, POC 112(H) 71 - 98 mg/dL [facility] ([place]) Blood 10/25/2021 8:00 PM CDT 10/25/2021 8:00 PM CDT Dominic Camara MD LAB POCT ORDERABLES - DEVICE Fi nal Result Performing Organization Address City/[facility]/ZIP Co de Phone Number TOMY SAHU ([place]) 1 [facility] [place] [address] * (ABNORMAL) POCT glucose (10/25/2021 7:12 PM CDT) Glucose, POC 109(H) 71 - 98 mg/dL [facility] ([place]) Blood 10/25/2021 7:12 PM CDT 10/25/2021 7:12 PM CDT us Dominic Camara MD LAB POCT ORDERABLES - DEVICE Fi nal Result [facility] ([place]) 1 [facility] [place] [address] * eGFR (10/25/2021 6:29 PM CDT) eGFR 138 mL/min/1. 73 m2 TOMY SAHU ([place]) Comment: Interpretive Data Reference Interval Normal ?>/= [...] interpretive data was last reviewed 2021. Blood 10/25/2021 6:29 PM CDT 10/25/2021 6:33 PM CDT us Dominic Camara MD LAB BLOOD ORDERABLES Final Resu lt Performing Organization Address City/[facility]/ZIP Co de Phone Number TOMY SAHU ([place]) 1 [facility] [place] [address] * (ABNORMAL) Basic metabolic panel (10/25/2021 6:29 PM CDT) Sodium 152(H) 135 - 145 mmol/L [facility] ([place]) Potassium, pl 3.2(L) 3.3 - 4.9 mmol/L [facility] ([place]) Chloride 118(H) 97 - 110 mmol/L [facility] ([place]) CO2 27 22 - 32 mmol/L [facility] ([place]) Anion gap 7 2 - 15 mmol/L [facility] ([place]) BUN 14 8 - 25 mg/dL [facility] ([place]) Creatinine 0.44(L) 0.60 - 1.10 mg/dL [facility] ([place]) Glucose 114 70 - 199 mg/dL [facility] ([place]) [...] interpretive data was last revised 2017. Calcium 8.3(L) 8.5 - 10.3 mg/dL [facility] ([place]) Blood 10/25/2021 6:29 PM CDT 10/25/2021 6:33 PM CDT Dominic Camara MD LAB BLOOD ORDERABLES Final Resu lt TOMY SA[facility] ([place]) 1 [facility] [place] [address] * (ABNORMAL) POCT glucose (10/25/2021 6:19 PM CDT) Glucose, POC 103(H) 71 - 98 mg/dL [facility] ([place]) Blood 10/25/2021 6:19 PM CDT 10/25/2021 6:19 PM CDT Dominic Camara MD LAB POCT ORDERABLES - DEVICE Fi nal Result Performing Organization Address City/[facility]/ZIP Co de Phone Number TOMY SAHU ([place]) 1 [facility] [place] [address] * (ABNORMAL) POCT glucose (10/25/2021 5:21 PM CDT) Glucose, POC 122(H) 71 - 98 mg/dL [facility] ([place]) Blood 10/25/2021 5:21 PM CDT 10/25/2021 5:21 PM CDT Dominic Camara MD LAB POCT ORDERABLES - DEVICE Fi nal Result Performing Organization Address [facility] Co de Phone Number TOMY SAHU ([place]) 1 [facility] [place] [address] * (ABNORMAL) POCT glucose (10/25/2021 4:20 PM CDT) Glucose, POC 154(H) 71 - 98 mg/dL [facility] ([place]) Blood 10/25/2021 4:20 PM CDT 10/25/2021 4:20 PM CDT Dominic Camara MD LAB POCT ORDERABLES - DEVICE Fi nal Result Performing Organization Address City/[facility]/ZIP Co de Phone Number TOMY SAHU ([place]) 1 [facility] [place] [address] * (ABNORMAL) POCT glucose (10/25/2021 3:18 PM CDT) Glucose, POC 168(H) 71 - 98 mg/dL [facility]OM[facility] ([place]) Blood 10/25/2021 3:18 PM CDT 10/25/2021 3:18 PM CDT us Dominic Camara MD LAB POCT ORDERABLES - DEVICE Fi nal Result Performing Organization Address City/[facility]/ZIP Co de Phone Number TOMY SAHU ([place]) 1 [facility] [place] [address] * (ABNORMAL) POCT glucose (10/25/2021 2:17 PM CDT) Glucose, POC 106(H) 71 - 98 mg/dL [facility]OM[facility] ([place]) Blood 10/25/2021 2:17 PM CDT 10/25/2021 2:17 PM CDT us Dominic Camara MD LAB POCT ORDERABLES - DEVICE Fi nal Result Performing Organization Address [facility] Co de Phone Number TOMY SAHU ([place]) 1 [facility] [place] [address] * (ABNORMAL) POCT glucose (10/25/2021 1:19 PM CDT) Glucose, POC 107(H) 71 - 98 mg/dL [facility] ([place]) Blood 10/25/2021 1:19 PM CDT 10/25/2021 1:19 PM CDT us Dominic Camara MD LAB POCT ORDERABLES - DEVICE Fi nal Result Performing Organization Address City/[facility]/ZIP Co de Phone Number TOMY SAHU ([place]) 1 [facility] [place] [address] * (ABNORMAL) POCT glucose (10/25/2021 12:19 PM CDT) Glucose, POC 124(H) 71 - 98 mg/dL [facility] ([place]) Blood 10/25/2021 12:1 9 PM CDT 10/25/2021 12:19 PM CDT Dominic Camara MD LAB POCT ORDERABLES - DEVICE Fi nal Result Performing Organization Address [facility] Co de Phone Number TOMY SAHU ([place]) 1 [facility] [place] [address] * (ABNORMAL) POCT glucose (10/25/2021 12:17 PM CDT) Glucose, POC >600(C) 71 - 98 mg/dL [facility] ([place]) Comment:Glu2: Will Repeat Te st Blood 10/25/2021 12:1 7 PM CDT 10/25/2021 12:17 PM CDT Dominic Camara MD LAB POCT ORDERABLES - DEVICE Fi nal Result Performing Organization Address [facility] de Phone Number TOMY SAHU ([place]) 1 [facility] [place] [address] * eGFR (10/25/2021 12:15 PM CDT) eGFR 131 mL/min/1. 73 m2 TOMY SA[facility] ([place]) Comment: Interpretive Data Reference Interval Normal ?>/= [...] interpretive data was last reviewed 2021. Blood 10/25/2021 12:1 5 PM CDT 10/25/2021 12:34 PM CDT us Dominic Camara MD LAB BLOOD ORDERABLES Final Resu lt [facility] ([place]I) 1 [facility] [place] [address] * (ABNORMAL) Basic metabolic panel (10/25/2021 12:15 PM CDT) Sodium 150(H) 135 - 145 mmol/L [facility] ([place]) Potassium, pl 3.6 3.3 - 4.9 mmol/L [facility] ([place]) Chloride 119(H) 97 - 110 mmol/L [facility] ([place]) CO2 21(L) 22 - 32 mmol/L [facility] ([place]) Anion gap 11 2 - 15 mmol/L [facility] ([place]) BUN 17 8 - 25 mg/dL [facility] ([place]) Creatinine 0.54(L) 0.60 - 1.10 mg/dL [facility] ([place]) Glucose 739(C) 70 - 199 mg/dL [facility] ([place]) Comment: Critical Result called to and read back by Nehemiah Chiu (ICU), DATE: 2021-10-25 13:04:41 BY: Porter Rios Interpretive Data Fasting glucose >/= 126 mg/dl [...] Calcium 8.2(L) 8.5 - 10.3 mg/dL [facility] ([place]) Blood 10/25/2021 12:1 5 PM CDT 10/25/2021 12:34 PM CDT Dominic Camara MD LAB BLOOD ORDERABLES Final Resu lt Performing Organization Address City/[facility]/ZIP Co de Phone Number [facility] ([place]) [address] [facility] [place] [address] * Urine culture Urine, clean voided (10/25/2021 12:09 PM CDT) Report Final Report: Less than 100,000 colonies/mL (clinically insignificant growth based on current clinical standards) [facility] ([place]) Comment:Testing performed by : [facility], [address] [place]., [address] Organism (CLINICALLY INSIGNIFICANT GROWTH [facility]OM[facility] ([place]) Urine, clean voided 10/25/2021 12:09 PM CDT 10/25/2021 3:44 PM CDT Narrative [facility]OM[facility] ([place]) - 10/26/2021 4:25 PM CDT Urine culture reflexed based upon urinalysis results. Testing performed by [facility] Microbiology Laboratory ([phone]) Dominic Camara MD LAB MICROBIOLOGY - [facility]AL [facility] Final Result Performing Organization Address City/[facility] Co de Phone Number TOMY SAHU ([place]) [address] [facility] [place] [address] * (ABNORMAL) Urinalysis, microscopic only (10/25/2021 12:09 PM CDT) WBC, ur 21-50(A) 0 - 5 /HPF [facility] ([place]) RBC, ur 6-10(A) 0 - 2 /HPF [facility] ([place]) Epithelial cells, squamous, ur 1-5 0 - 5 /HPF [facility] ([place]) Bacteria, ur 1+(A) [facility] ([place]) Mucous, ur Present(A) [facility] A ([place]) Hyaline casts, ur 1-5 0 - 10 /LPF [facility] ([place]) Culture Reflex Comment Reflex to urine culture will be performed. [facility] ([place]) Urine, clean voided 10/25/2021 12:09 PM CDT 10/25/2021 12:34 PM CDT us Dominic Camara MD LAB URINE ORDERABLES Final Resu lt [facility] ([place]) [address] [facility] [place] [address] * (ABNORMAL) Urinalysis reflex to microscopic and culture Urine, clean voided (10/25/2021 12:09 PM CDT) Color, ur Yellow Yellow [facility] ([place]) Clarity, ur Turbid(A) Clear [facility] A ([place]) Specific gravity, ur 1.026 1.003 - 1.030 [facility] ([place]) pH, urine 6.0 [facility] ([place]) Protein, ur ql Trace Negative [facility] ([place]) Glucose, ur ql 2+(A) Negative [facility] ([place]) Ketones, ur 2+(A) Negative [facility] A ([place]) Bilirubin, ur Negative Negative [facility] ([place]) Blood, ur Negative Negative [facility] ([place]) Urobilinogen, ur <2.0 <2.0 mg/dL [facility] ([place]) Nitrite, ur Negative Negative [facility] A ([place]) Leukocyte esterase, ur 4+(A) Negative [facility] ([place]) UA reflex comment Reflex to microscopic UA will be performed. [facility] ([place]) Urine, clean voided 10/25/2021 12:09 PM CDT 10/25/2021 12:34 PM CDT Narrative [facility] ([place]) - 10/25/2021 12:40 PM CDT ?? Urine pH is affected by diet, medications, systemic acid-base disturbances, and renal tubular function. ??pH may affect urinary stone formation. ??For example, urine pH below 6.0 may help reduce the tendency for calcium phosphate stones and pH greater than 6.0 may reduce the tendency for uric acid stone formation. Source: [facility]. Last revised 05-13-2017 Dominic Camara MD LAB MICROBIOLOGY - GENERAL ORDHuma [facility] Final Result [facility] ([place]) [address] [facility] [place] [address] * (ABNORMAL) POCT glucose (10/25/2021 11:14 AM CDT) Glucose, POC 151(H) 71 - 98 mg/dL [facility] ([place]) Blood 10/25/2021 11:1 4 AM CDT 10/25/2021 11:14 AM CDT Dominic Camara MD LAB POCT ORDERABLES - DEVICE Fi nal Result Performing Organization Address [facility] Co de Phone Number TOMY [facility] ([place]) [address] [place] [address] [place] [address] * (ABNORMAL) POCT glucose (10/25/2021 10:11 AM CDT) Glucose, POC 152(H) 71 - 98 mg/dL [facility] ([place]) Blood 10/25/2021 10:1 1 AM CDT 10/25/2021 10:11 AM CDT Dominic Camara MD LAB POCT ORDERABLES - DEVICE Fi nal Result Performing Organization Address City/[facility] Co de Phone Number TOMY SAHU ([place]) [address] [facility] [place] [address] * (ABNORMAL) POCT glucose (10/25/2021 9:07 AM CDT) Glucose, POC 123(H) 71 - 98 mg/dL [facility] ([place]) Blood 10/25/2021 9:07 AM CDT 10/25/2021 9:07 AM CDT Dominic Camara MD LAB POCT ORDERABLES - DEVICE Fi nal Result TOMY SAHU (VASHTI) 1 [facility] [place] [address] * (ABNORMAL) POCT glucose (10/25/2021 8:02 AM CDT) Glucose, POC 103(H) 71 - 98 mg/dL TOMY SAHU ([place]) Blood 10/25/2021 8:02 AM CDT 10/25/2021 8:02 AM CDT Dominic Camara MD LAB POCT ORDERABLES - DEVICE Fi nal Result TOMY SAHU ([place]) 1 [facility] [place] [address] * (ABNORMAL) POCT glucose (10/25/2021 7:09 AM CDT) Glucose, POC 101(H) 71 - 98 mg/dL TOMY SAHU ([place]) Blood 10/25/2021 7:09 AM CDT 10/25/2021 7:09 AM CDT Augusto Bai MD LAB POCT ORDERABLES - YARELY CE Final Result TOMY SAHU ([place]) 1 [facility] [place] [address] * (ABNORMAL) POCT glucose (10/25/2021 6:06 AM CDT) Glucose, POC 130(H) 71 - 98 mg/dL TOMY SAHU ([place]) Blood 10/25/2021 6:06 AM CDT 10/25/2021 6:06 AM CDT Augusto Bai MD LAB POCT ORDERABLES - YARELY CE Final Result TOMY SAHU ([place]) 1 [facility] [place] [address] * (ABNORMAL) POCT glucose (10/25/2021 5:01 AM CDT) Glucose, POC 145(H) 71 - 98 mg/dL TOMY SAHU ([place]) Blood 10/25/2021 5:01 AM CDT 10/25/2021 5:01 AM CDT Augusto Bai MD LAB POCT ORDERABLES - YARELY CE Final Result Performing Organization Address City/[facility] Co de Phone Number TOMY LUIS ALBERTO (VASHTI) 1 [facility] [place] [address] * eGFR (10/25/2021 4:55 AM CDT) eGFR 117 mL/min/1. 73 m2 TOMY SAHU (VASHTI) Comment: [...] interpretive data was last reviewed 2021. Blood 10/25/2021 4:55 AM CDT 10/25/2021 5:06 AM CDT Augusto Bai MD LAB BLOOD ORDERABLES Final Result [facility] ([place] 1 [facility] Department of Laboratories [place], [place] [id number] * (ABNORMAL) Differential, auto (10/25/2021 4:55 AM CDT) Neutrophil abs 14.8(H) 1.7 - 6.5 K/cumm [facility] ([place]) Imm gran abs 0.1 0.0 - 0.1 K/cumm [facility] ([place]) Lymphocyte abs 1.2 0.8 - 3.3 K/cumm [facility] ([place]) Monocyte abs 1.6(H) 0.2 - 0.8 K/cumm [facility] ([place]) Eosinophil abs 0.0 0.0 - 0.5 K/cumm [facility] ([place]) Basophil abs 0.0 0.0 - 0.1 K/cumm [facility] ([place]) Neutrophil pct 83.6 % [facility] ([place]) Comment: Interpretive Data Percent cell count reference ranges are not reported, since discordance with absolute values may lead to misinterpretation of CBC data. Current Interpretive Data was last revised on 2017. Imm gran pct 0.7 % [facility] ([place]) Comment: Interpretive Data [...] was last revised on 2017. Monocyte pct 8.9 % [facility] ([place]) Comment: Interpretive Data [...] Data was last revised on 2017. Blood 10/25/2021 4:55 AM CDT 10/25/2021 5:06 AM CDT Augusto Bai MD LAB BLOOD ORDERABLES Final Result [facility] ([place]) 1 [facility] Department of Laboratories [place], [place] [id number] * (ABNORMAL) Renal function panel (10/25/2021 4:55 AM CDT) Sodium 155(H) 135 - 145 mmol/L [facility] ([place]) Potassium, pl 3.8 3.3 - 4.9 mmol/L [facility] ([place]) Chloride 125(H) 97 - 110 mmol/L [facility] ([place]) CO2 20(L) 22 - 32 mmol/L [facility] ([place]) Anion gap 11 2 - 15 mmol/L [facility] ([place]) BUN 29(H) 8 - 25 mg/dL [facility] ([place]) Creatinine 0.73 0.60 - 1.10 mg/dL [facility] ([place]) Glucose 166 70 - 199 mg/dL [facility] ([place]) Comment: Interpretive Data Fasting glucose [...] Phosphorus, pl 1.1(L) 2.3 - 4.5 mg/dL [facility] ([place]) Albumin 3.6 3.5 - 5.0 g/dL [facility] ([place]) Blood 10/25/2021 4:55 AM CDT 10/25/2021 5:06 AM CDT Augusto Bai MD LAB BLOOD ORDERABLES Final Result [facility] ([place]) 1 [facility] Department of Laboratories [place], [place] [id number] * (ABNORMAL) CBC with auto differential (10/25/2021 4:55 AM CDT) WBC 17.7(H) 3.8 - 9.9 K/cumm [facility] ([place]) Hgb 11.6(L) 11.9 - 15.5 g/dL [facility] ([place]) Hct 35.1(L) 35.6 - 45.5 % [facility] ([place]) Plt 242 150 - 400 K/cumm [facility] ([place]) MPV 9.0(L) 9.1 - 12.3 fL [facility] ([place]) RBC 4.29 3.90 - 5.20 M/cumm [facility] ([place]) MCV 81.8 81.3 - 96.4 fL [facility] ([place]) MCH 27.0(L) 27.1 - 33.3 pg [facility] ([place]) MCHC 33.0 32.3 - 35.7 g/dL [facility] ([place]) RDW CV 16.6(H) 11.1 - 14.9 % [facility] ([place]) RDW SD 48.3(H) 35.7 - 48.1 fL [facility] ([place]) NRBC abs 0.00 0.00 - 0.01 K/cumm TOMY SAHU ([place]) Blood 10/25/2021 4:55 AM CDT 10/25/2021 5:06 AM CDT Augusto Bai MD LAB BLOOD ORDERABLES Final Result TOMY SAHU ([place]) 1 [facility] [place] [address] * (ABNORMAL) POCT glucose (10/25/2021 4:08 AM CDT) Glucose, POC 158(H) 71 - 98 mg/dL [facility] ([place]) Blood 10/25/2021 4:08 AM CDT 10/25/2021 4:08 AM CDT Augusto Bai MD LAB POCT ORDERABLES - YARELY CE Final Result TOMY SAHU ([place]) 1 [facility] [place] [address] * (ABNORMAL) POCT glucose (10/25/2021 3:04 AM CDT) Glucose, POC 114(H) 71 - 98 mg/dL [facility] Blood 10/25/2021 3:04 AM CDT 10/25/2021 3:04 AM CDT us Augusto Bai MD LAB POCT ORDERABLES - YARELY CE Final Result TOMY SAHU ([place]) 1 [facility] [place] [address] * (ABNORMAL) POCT glucose (10/25/2021 2:01 AM CDT) Glucose, POC 106(H) 71 - 98 mg/dL TOMY SAHU ([place]) Blood 10/25/2021 2:01 AM CDT 10/25/2021 2:01 AM CDT Augusto Bai MD LAB POCT ORDERABLES - YARELY CE Final Result TOMY SAHU ([place]) 1 [facility] [place] [address] * (ABNORMAL) POCT glucose (10/25/2021 1:03 AM CDT) Glucose, POC 115(H) 71 - 98 mg/dL TOMY SAHU ([place]) Blood 10/25/2021 1:03 AM CDT 10/25/2021 1:03 AM CDT Augusto Bai MD LAB POCT ORDERABLES - YARELY CE Final Result TOMY SAHU ([place]) 1 [facility] [place] [address] * (ABNORMAL) POCT glucose (10/25/2021 12:17 AM CDT) Glucose, POC 116(H) 71 - 98 mg/dL TOMY SAHU ([place]) Blood 10/25/2021 12:1 7 AM CDT 10/25/2021 12:17 AM CDT us Augusto Bai MD LAB POCT ORDERABLES - YARELY CE Final Result TOMY SAHU ([place]) 1 [facility] [place] [address] * eGFR (10/25/2021 12:00 AM CDT) eGFR 96 mL/min/1. 73 m2 [facility] ([place]) Comment: Interpretive Data Reference Interval [...] interpretive data was last reviewed 2021. Blood 10/25/2021 10/25/2021 12: 21 AM CDT Augusto Bai MD LAB BLOOD ORDERABLES Final Result [facility] ([place]) 1 [facility] [place] [address] * (ABNORMAL) Renal function panel (10/25/2021 12:00 AM CDT) Sodium 152(H) 135 - 145 mmol/L [facility] ([place]) Potassium, pl 4.0 3.3 - 4.9 mmol/L [facility] ([place]) Chloride 122(H) 97 - 110 mmol/L [facility] ([place]) CO2 19(L) 22 - 32 mmol/L [facility] ([place]) Anion gap 12 2 - 15 mmol/L [facility] ([place]) BUN 35(H) 8 - 25 mg/dL [facility] ([place]) Creatinine 0.86 0.60 - 1.10 mg/dL [facility] ([place]) Glucose 136 70 - 199 mg/dL [facility] ([place]) [...] 10.3 mg/dL [facility] ([place]) Phosphorus, pl 1.8(L) 2.3 - 4.5 mg/dL [facility] ([place]) Albumin 3.8 3.5 - 5.0 g/dL [facility] ([place]) Blood 10/25/2021 10/25/2021 12: 21 AM CDT Augusto Bai MD LAB BLOOD ORDERABLES Final Result [facility] ([place] 1 [facility] [place] [address] * Blood culture Blood (10/25/2021 12:00 AM CDT) Report Final Report: No growth [facility] ([place]) Comment:Testing performed by : [facility], 1 [facility] [place]., [address] Blood 10/25/2021 10/25/2021 6:0 4 AM CDT Narrative [facility] ([place]) - 10/29/2021 7:01 AM CDT 1. ?Blood cultures are incubated for 4 [...] organism identification may be performed using the BR Supplyigene Gram-Positive Blood Culture Assay. This assay detects microbial DNA in positive blood culture broth via hybridization of target DNA to capture oligonucleotides on a microarray. This assay has been cleared by the [place] Food and Drug Administration and its performance characteristics have been verified by the [facility] Microbiology Laboratory. 5. ?For questions about this culture, contact the Microbiology Laboratory at [phone]. Interpretive data was last revised on 2019. Cody Case MD LAB MICROBIOLOGY - GENERAL ORDERABLES Final Result TOMY SAHU ([place]HT[place]) 1 [facility] [place] [address] * (ABNORMAL) POCT glucose (10/24/2021 11:10 PM CDT) [facility] Glucose, POC 116(H) 71 - 98 mg/dL TOMY SAHU ([place]HTI) Blood 10/24/2021 11:1 0 PM CDT 10/24/2021 11:10 PM CDT Augusto Bai MD LAB POCT ORDERABLES - YARELY CE Final Result TOMY SAHU ([place]) 1 [facility] [place] [address] * (ABNORMAL) POCT glucose (10/24/2021 10:04 PM CDT) Glucose, POC 101(H) 71 - 98 mg/dL TOMY SAHU ([place]) Blood 10/24/2021 10:0 4 PM CDT 10/24/2021 10:04 PM CDT us Augusto Bai MD LAB POCT ORDERABLES - YARELY CE Final Result TOMY SAHU ([place]HTI) 1 [place] [address] * (ABNORMAL) POCT glucose (10/24/2021 9:01 PM CDT) Glucose, POC 110(H) 71 - 98 mg/dL TOMY SAHU ([place]HTI) Blood 10/24/2021 9:01 PM CDT 10/24/2021 9:01 PM CDT us Augusto Bai MD LAB POCT ORDERABLES - YARELY CE Final Result TOMY SAHU ([place]) 1 [facility] [place] [address] * (ABNORMAL) POCT glucose (10/24/2021 8:03 PM CDT) Glucose, POC 110(H) 71 - 98 mg/dL TOMY SAHU ([place]ASHTI) Blood 10/24/2021 8:03 PM CDT 10/24/2021 8:03 PM CDT us Augusto Bai MD LAB POCT ORDERABLES - YARELY CE Final Result TOMY SAHU ([place]) 1 [facility] [place] [address] * (ABNORMAL) POCT glucose (10/24/2021 7:21 PM CDT) Glucose, POC 107(H) 71 - 98 mg/dL [facility] ([place]) Blood 10/24/2021 7:21 PM CDT 10/24/2021 7:21 PM CDT Augusto Bai MD LAB POCT ORDERABLES - YARELY CE Final Result [facility] ([place]) 1 [facility] [place] [address] * (ABNORMAL) POCT glucose (10/24/2021 6:12 PM CDT) Glucose, POC 123(H) 71 - 98 mg/dL [facility] ([place]) Blood 10/24/2021 6:12 PM CDT 10/24/2021 6:12 PM CDT Augusto Bai MD LAB POCT ORDERABLES - YARELY CE Final Result Performing Organization Address City/[facility]/ZIP Co de Phone Number [facility] ([place]) 1 [facility] [place] [address] * eGFR (10/24/2021 5:10 PM CDT) eGFR 65 mL/min/1. 73 m2 [facility] ([place]) Comment: Interpretive Data Reference Interval Normal ?>/= [...] interpretive data was last reviewed 2021. Blood 10/24/2021 5:10 PM CDT 10/24/2021 5:22 PM CDT Augusto Bai MD LAB BLOOD ORDERABLES Final Result [facility] ([place]) 1 [facility] [place] [address] * (ABNORMAL) Renal function panel (10/24/2021 5:10 PM CDT) Sodium 152(H) 135 - 145 mmol/L [facility] ([place]) Potassium, pl 4.4 3.3 - 4.9 mmol/L [facility] ([place]) Chloride 125(H) 97 - 110 mmol/L [facility] ([place]) CO2 18(L) 22 - 32 mmol/L [facility] ([place]) Anion gap 9 2 - 15 mmol/L [facility] ([place]) BUN 46(H) 8 - 25 mg/dL [facility] ([place]) Creatinine 1.19(H) 0.60 - 1.10 mg/dL [facility] ([place]) Glucose 140 70 - 199 mg/dL [facility] ([place]) Comment: Interpretive Data Fasting [...] 2017. Calcium 8.8 8.5 - 10.3 mg/dL [facility] ([place]) Phosphorus, pl 1.3(L) 2.3 - 4.5 mg/dL [facility] ([place]) Albumin 3.8 3.5 - 5.0 g/dL [facility] ([place]) Blood 10/24/2021 5:10 PM CDT 10/24/2021 5:22 PM CDT Augusto Bai MD LAB BLOOD ORDERABLES Final Result [facility] ([place]) [address] [place] [address] [place] [address] * Infection Prevention MRSA Only (Staphylococcus aureus) PCR Nasal (10/24/2021 5:10 PM CDT) Pathologist [facility] PCR Scrn, Methicillin resistant Staphylococcus aureus (MRSA) Not Detected Not Detected [facility] ([place]) Comment: Testing performed using Nucleic Acid Amplification with the mDialog Xpert MRSA Assay. This assay detects DNA from SCCmec strains of Staphylococcus aureus using Real- Time PCR and has been cleared by the FDA. Performance characteristics have been verified by the [facility]. Nasal 10/24/2021 5:10 PM CDT 10/24/2021 5:22 PM CDT Augusto Bai MD LAB MICROBIOLOGY - GENERAL ORDERABLES Final Result [facility] ([place]) [address] [place] [address] * Sepsis Lactate w/ Reflex (10/24/2021 5:10 PM CDT) Pathologist [facility] Sepsis Lactate 1.5 0.7 - 2.0 mmol/L [facility] ([place]) Blood 10/24/2021 5:10 PM CDT 10/24/2021 5:21 PM CDT Cody Case MD LAB BLOOD ORDERABLES Final Result TOMY SAHU ([place]) 1 [facility] [place] [address] * (ABNORMAL) POCT glucose (10/24/2021 5:07 PM CDT) Glucose, POC 140(H) 71 - 98 mg/dL TOMY SA[facility] ([place]) Blood 10/24/2021 5:07 PM CDT 10/24/2021 5:07 PM CDT Augusto Bai MD LAB POCT ORDERABLES - YARELY CE Final Result Performing Organization Address City/[facility]/ZIP Co de Phone Number TOMY SAHU ([place]) 1 [facility] [place] [address] * (ABNORMAL) POCT glucose (10/24/2021 4:09 PM CDT) Glucose, POC 140(H) 71 - 98 mg/dL [facility]OM[facility] SAHU ([place]) Blood 10/24/2021 4:09 PM CDT 10/24/2021 4:09 PM CDT Augusto Bai MD LAB POCT ORDERABLES - YARELY CE Final Result TOMY SAHU ([place]) 1 [facility] [place] [address] * (ABNORMAL) POCT glucose (10/24/2021 3:10 PM CDT) Glucose, POC 177(H) 71 - 98 mg/dL TOMY SAHU ([place]) Blood 10/24/2021 3:10 PM CDT 10/24/2021 3:10 PM CDT Augusto Bai MD LAB POCT ORDERABLES - YARELY CE Final Result Performing Organization Address City/[facility]/ZIP Co de Phone Number [facility] ([place] [address] [facility] [place] [address] * (ABNORMAL) POCT glucose (10/24/2021 2:13 PM CDT) Glucose, POC 210(H) 71 - 98 mg/dL [facility] ([place]) Blood 10/24/2021 2:13 PM CDT 10/24/2021 2:13 PM CDT Augusto Bai MD LAB POCT ORDERABLES - YARELY CE Final Result Performing Organization Address [facility] Co de Phone Number [facility] ([place]) 1 [facility] [place] [address] * (ABNORMAL) Blood gas, venous (10/24/2021 2:10 PM CDT) pH, Venous 7.29(L) 7.32 - 7.43 [facility] PCO2, Venous 31(L) 40 - 50 mmHg [facility] ([place]) PO2, Venous 48 mmHg [facility] ([place]) Comment: Interpretive Data No Reference Range Established Current Interpretive Data was last revised on 2017. HCO3 Venous, Calculated 14(L) 20 - 30 mmol/L [facility] ([place]) BE, venous -11 mmol/L [facility] ([place]) Comment: Interpretive Data No Reference Range Established Current Interpretive Data was last revised on 2017. Blood 10/24/2021 2:10 PM CDT 10/24/2021 2:11 PM CDT Augusto Bai MD LAB BLOOD ORDERABLES Final Result Performing Organization Address [facility] Co de Phone Number [facility]SH[facility] SAHU ([place]) 1 [facility] [place] [address] * eGFR (10/24/2021 1:14 PM CDT) eGFR 45 mL/min/1. 73 m2 TOMY SA[facility] ([place]) Comment: Interpretive Data Reference Interval Normal ?>/= [...] interpretive data was last reviewed 2021. Blood 10/24/2021 1:14 PM CDT 10/24/2021 1:23 PM CDT us Augusto Bai MD LAB BLOOD ORDERABLES Final Result TOMY LUIS ALBERTO ([place]) 1 [facility] [place] [address] * (ABNORMAL) Comprehensive metabolic panel (10/24/2021 1:14 PM CDT) Sodium 152(H) 135 - 145 mmol/L TOMY SA[facility] ([place]) Potassium, pl 3.9 3.3 - 4.9 mmol/L [facility] ([place]) Chloride 124(H) 97 - 110 mmol/L [facility] ([place]) CO2 11(L) 22 - 32 mmol/L [facility] ([place]) Anion gap 16(H) 2 - 15 mmol/L [facility] ([place]) BUN 58(H) 8 - 25 mg/dL [facility] ([place]) Creatinine 1.63(H) 0.60 - 1.10 mg/dL [facility] ([place]) Glucose 244(H) 70 - 199 mg/dL [facility] ([place]) [...] 2017. Calcium 8.8 8.5 - 10.3 mg/dL [facility] ([place]) Bilirubin, total 0.3 0.1 - 1.2 mg/dL [facility] ([place]) Protein, pl 6.8 6.5 - 8.5 g/dL [facility] ([place]) Albumin 4.3 3.5 - 5.0 g/dL [facility] ([place]) Alk phos 100 40 - 130 Units/L [facility] ([place]) ALT 14 7 - 45 Units/L [facility] ([place]) AST 15 10 - 45 Units/L [facility] ([place]) Blood 10/24/2021 1:14 PM CDT 10/24/2021 1:23 PM CDT Augusto Bai MD LAB BLOOD ORDERABLES Final Result [facility] ([place]) 1 [facility] [place] [address] * (ABNORMAL) Sepsis Lactate w/ Reflex (10/24/2021 1:14 PM CDT) Sepsis Lactate 2.1(H) 0.7 - 2.0 mmol/L [facility]OM[facility] ([place]) Blood 10/24/2021 1:14 PM CDT 10/24/2021 1:19 PM CDT Cody Case MD LAB BLOOD ORDERABLES Final Result TOM[facility] ([place]) 1 [facility] [place] [address] * (ABNORMAL) POCT glucose (10/24/2021 1:05 PM CDT) Glucose, POC 234(H) 71 - 98 mg/dL [facility] ([place]) Blood 10/24/2021 1:05 PM CDT 10/24/2021 1:05 PM CDT Augusto Bai MD LAB POCT ORDERABLES - YARELY CE Final Result [facility]OM[facility] ([place]) [address] [place] [address] [place] [address] * (ABNORMAL) POCT glucose (10/24/2021 11:49 AM CDT) Glucose, POC 345(H) 71 - 98 mg/dL [facility] Blood 10/24/2021 11:4 9 AM CDT 10/24/2021 11:49 AM CDT Augusto Bai MD LAB POCT ORDERABLES - YARELY CE Final Result [facility] ([place]) 1 [facility] [place] [address] * (ABNORMAL) POCT glucose (10/24/2021 10:50 AM CDT) Glucose, POC 508(C) 71 - 98 mg/dL [facility] ([place]) Comment:Glu2: RN/ Notified Blood 10/24/2021 10:5 0 AM CDT 10/24/2021 10:50 AM CDT Cody Case MD LAB POCT ORDERABLES - DEVIC E Final Result Performing Organization Address [facility] Co de Phone Number TOMY [facility] ([place]) 1 [facility] [place] [address] * (ABNORMAL) POCT glucose (10/24/2021 9:37 AM CDT) Glucose, POC >600(C) 71 - 98 mg/dL [facility] ([place]) Comment:Glu2: RN/ Notified Blood 10/24/2021 9:37 AM CDT 10/24/2021 9:37 AM CDT Cody Case MD LAB POCT ORDERABLES - DEVIC E Final Result Performing Organization Address [facility] de Phone Number TOMY [facility] ([place]) [address] [place] [address] [place] [address] * (ABNORMAL) Blood gas, arterial (10/24/2021 9:24 AM CDT) pH, Art 6.98(C) 7.35 - 7.45 [facility] ([place]) Comment:Critical result call ed to and read back by Lea Feliciano (ER) on 10/24/2021 09:30:37 CDT to Molly Ballard. PCO2, Arterial 10(C) 35 - 45 mmHg [facility] ([place]) Comment:Critical result call ed to and read back by Lea Feliciano (ER) on 10/24/2021 09:30:52 CDT to Molly Ballard. PO2, Arterial 139(H) 83 - 108 mmHg [facility] ([place]) HCO3 Art (Calculated) <3(L) 20 - 30 mmol/L [facility] ([place]) BE, art -30 mmol/L [facility] ([place]) Comment: Interpretive Data No Reference Range Established Current Interpretive Data was last revised on 2017 O2 Sat Art (Measured) 98(H) 90 - 95 % [facility] ([place]) Blood 10/24/2021 9:24 AM CDT 10/24/2021 9:26 AM CDT Cody Case MD LAB BLOOD ORDERABLES Final Result [facility] ([place]) 1 [facility] [place] [address] * (ABNORMAL) Manual Differential (10/24/2021 9:08 AM CDT) Differential Manual [facility] ([place]) Cells Counted 100 [facility] ([place]) Neutrophil abs 26.9(H) 1.7 - 6.5 K/cumm [facility] ([place]) Imm gran abs 0.6(H) 0.0 - 0.1 K/cumm [facility] ([place]) Lymphocyte abs 1.8 0.8 - 3.3 K/cumm [facility] ([place]) Monocyte abs 0.9(H) 0.2 - 0.8 K/cumm [facility] ([place]) Neutrophil pct 84.0 % [facility] ([place]) Comment: Interpretive Data Percent cell count reference ranges are not reported, since discordance with absolute values may lead to misinterpretation of CBC data. Current Interpretive Data was last revised on 2017. Lymphocyte pct 5.0 % [facility] ([place]) Comment: Interpretive Data Percent cell count reference ranges are not reported, since discordance with absolute values may lead to misinterpretation of CBC data. Current Interpretive Data was last revised on 2017. Monocyte pct 3.0 % [facility] ([place]) Comment: Interpretive Data Percent cell count reference ranges are not reported, since discordance with absolute values may lead to misinterpretation of CBC data. Current Interpretive Data was last revised on 2017. Band Neutrophil pct 5.0 0.0 - 5.0 % [facility] ([place]) Myelocyte pct 2.0(H) 0.0 - 0.0 % [facility] ([place]) Variant lymph pct 1.0(H) 0.0 - 0.0 % [facility] ([place]) RBC morphology Consistent with RBC Indicies [facility] ([place]) Anisocytosis Slight(A) [facility] ([place]) Poikilocytosis Slight(A) [facility] ([place]) Platelet estimate Automated Count Confirmed [facility] ([place]) Blood 10/24/2021 9:08 AM CDT 10/24/2021 9:42 AM CDT Cody Case MD LAB BLOOD ORDERABLES Final Result TOMY [facility] ([place]) 1 [facility] [place] [address] * Blood culture Blood (10/24/2021 9:08 AM CDT) Report Final Report: No growth [facility] ([place]) Comment:Testing performed by : [facility], 1 [facility], [place]., [address] Blood 10/24/2021 9:08 AM CDT 10/24/2021 12:58 PM CDT Narrative TOMY [facility] ([place]) - 10/28/2021 4:00 PM CDT 1. ?Blood cultures are incubated for 4 [...] organism identification may be performed using the BR Supplyigene Gram-Positive Blood Culture Assay. This assay detects microbial DNA in positive blood culture broth via hybridization of target DNA to capture oligonucleotides on a microarray. This assay has been cleared by the [place] Food and Drug Administration and its performance characteristics have been verified by the [facility] Microbiology [facility]. 5. ?For questions about this culture, contact the Microbiology Laboratory at [phone]. Interpretive data was last revised on 2019. Cody Case MD LAB MICROBIOLOGY - GENERAL ORDERABLES Final Result Performing Organization Address City/[facility]/ZIP Co de Phone Number TOMY SAHU (VASHTI) [address] [facility] [place] [address] * (ABNORMAL) Magnesium (10/24/2021 9:08 AM CDT) Magnesium 3.5(H) 1.4 - 2.5 mg/dL TOMY SAHU (VASHTI) Blood 10/24/2021 9:08 AM CDT 10/24/2021 9:12 AM CDT Cody Case MD LAB BLOOD ORDERABLES Final Result Performing Organization Address [facility] Co de Phone Number TOMY SAHU (VASHTI) [address] [facility] [place] [address] * (ABNORMAL) Phosphorus (10/24/2021 9:08 AM CDT) Phosphorus, pl 5.0(H) 2.3 - 4.5 mg/dL TOMY SAHU (VASHTI) Blood 10/24/2021 9:08 AM CDT 10/24/2021 9:12 AM CDT Cody Case MD LAB BLOOD ORDERABLES Final Result Performing Organization Address City/[facility] Co de Phone Number TOMY SAHU ([place]) [address] [place] [address] * Protime-INR (10/24/2021 9:08 AM CDT) [facility] PT 12.6 9.2 - 13.5 sec [facility] INR 1.2 0.9 - 1.2 [facility] ([place]) Comment: Interpretive data Oral anticoagulant therapeutic ranges: Venous thromboembolism prophylaxis or treatment: 2.0-3.0 CARDIOLOGY Standard range: 2.0-3.0 High-intensity range: 2.5-3.5 Refer to indication-specific guidelines for appropriate target ranges for prosthetic heart valve replacement. Current interpretive data was last revised on 2019. Blood 10/24/2021 9:08 AM CDT 10/24/2021 9:42 AM CDT Cody Case MD LAB BLOOD ORDERABLES Final Result Performing Organization Address City/[facility]/ZIP Co de Phone Number [facility] [address] [facility] [place] [address] * (ABNORMAL) Sepsis Lactate w/ Reflex (10/24/2021 9:08 AM CDT) [facility] Sepsis Lactate 3.3(H) 0.7 - 2.0 mmol/L [facility] ([place]) Blood 10/24/2021 9:08 AM CDT 10/24/2021 9:12 AM CDT Cody Case MD LAB BLOOD ORDERABLES Final Result [facility] ([place]) [address] [place] [address] * (ABNORMAL) CBC with auto differential (10/24/2021 9:08 AM CDT) [facility] WBC 30.2(H) 3.8 - 9.9 K/cumm [facility] ([place]) Hgb 13.4 11.9 - 15.5 g/dL [facility] ([place]) Hct 44.5 35.6 - 45.5 % [facility] ([place]) Plt 548(H) 150 - 400 K/cumm [facility] ([place]) MPV 9.6 9.1 - 12.3 fL [facility] ([place] RBC 4.89 3.90 - 5.20 M/cumm [facility] ([place]) MCV 91.0 81.3 - 96.4 fL [facility] ([place]) MCH 27.4 27.1 - 33.3 pg [facility] ([place]) MCHC 30.1(L) 32.3 - 35.7 g/dL [facility] ([place]) RDW CV 16.6(H) 11.1 - 14.9 % [facility] ([place]) RDW SD 54.9(H) 35.7 - 48.1 fL [facility] ([place]) NRBC abs 0.00 0.00 - 0.01 K/cumm [facility] ([place]) Blood 10/24/2021 9:08 AM CDT 10/24/2021 9:42 AM CDT Cody Case MD LAB BLOOD ORDERABLES Final Result [facility] ([place]) [address] [facility] [place] [address] * eGFR (10/24/2021 9:07 AM CDT) eGFR 24 mL/min/1. 73 m2 [facility] ([place]) Comment: [...] interpretive data was last reviewed 2021. Blood 10/24/2021 9:07 AM CDT 10/24/2021 9:22 AM CDT us Cody Case MD LAB BLOOD ORDERABLES Final Result [facility] ([place]) [address] [facility] [place] [address] * (ABNORMAL) Comprehensive metabolic panel (10/24/2021 9:07 AM CDT) Sodium 142 135 - 145 mmol/L [facility] Potassium, pl 4.4 3.3 - 4.9 mmol/L [facility] Chloride 108 97 - 110 mmol/L [facility] CO2 <2(L) 22 - 32 mmol/L [facility] Anion gap unable to calc 2 - 15 mmol/L [facility] BUN 76(H) 8 - 25 mg/dL [facility] ([place]) Creatinine 2.70(H) 0.60 - 1.10 mg/dL [facility] ([place]) Glucose 868(C) 70 - 199 mg/dL [facility] Comment: Critical Result called to and read back by Lea Feliciano (ER), DATE: 2021-10-24 09:47:30 BY: Molly Ballard Interpretive Data Fasting glucose >/= 126 mg/dl [...] 1.2 mg/dL [facility] ([place]) Protein, pl 7.1 6.5 - 8.5 g/dL [facility] ([place]) Albumin 4.4 3.5 - 5.0 g/dL [facility] ([place]) Alk phos 117 40 - 130 Units/L [facility] ([place]) ALT 14 7 - 45 Units/L [facility] ([place]) AST 12 10 - 45 Units/L [facility] ([place]) Blood 10/24/2021 9:07 AM CDT 10/24/2021 9:22 AM CDT us Cody Case MD LAB BLOOD ORDERABLES Final Result [facility] ([place]) [address] [facility] [place] [address] * XR Chest 1 Vw Portable (10/24/2021 8:52 AM CDT) Anatomical Region Laterality Modality Body, Chest N/A Computed Radiogr aphy 10/24/2021 9:01 AM CDT Narrative 10/24/2021 9:03 AM CDT EXAM DESCRIPTION: ?? XR CHEST 1 VIEW REASON FOR STUDY: ?? GENERAL WEAKNESS. Came home from work sick on Wednesday throwing up. Patient last seen alert at 1 am Wednesday. Known diabetic. ? TECHNIQUE: ?? Portable upright AP ??radiographic view of the chest acquired. COMPARISON: ?? March 04, 2021 FINDINGS: LUNGS/PLEURA: ?? No focal consolidation or pneumothorax. No pleural effusion. HEART/MEDIASTINUM: ?? Heart size is normal. Normal mediastinal and hilar contours. HARDWARE/LINES/TUBES: ?? None. BONES: ?? No acute findings. OTHER: ?? No other significant finding. IMPRESSION: ??No acute cardiopulmonary disease. THIS IS AN ELECTRONICALLY VERIFIED FINAL REPORT 10/24/2021 9:03 AM - Electronically signed by ??Ameya Broussard M.D. RB: TORSTEN D: ??10/24/2021 9:03 AM T: ??10/24/2021 9:03 AM Report ID: [id number] Reading Location: ??[id number] Procedure Note Ameya Broussard MD - 10/24/2021 EXAM DESCRIPTION: XR CHEST 1 VIEW REASON FOR STUDY: GENERAL WEAKNESS. Came home from work sick on Wednesday throwing up. Patient last seen alertat 1 am Wednesday. Known diabetic. TECHNIQUE: Portable upright AP radiographic view of the chestacquired. COMPARISON: March 04, 2021 FINDINGS: LUNGS/PLEURA: No focal consolidation or pneumothorax. No pleuraleffusion. HEART/MEDIASTINUM: Heart size is normal. Normal mediastinal and hilar contours. HARDWARE/LINES/TUBES: None. BONES: No acute findings. OTHER: No other significant finding. IMPRESSION: No acute cardiopulmonary disease. THIS IS AN ELECTRONICALLY VERIFIED FINAL REPORT 10/24/2021 9:03 AM - Electronically signed by Ameya Broussard M.D. RB: TORSTEN Report ID: [id number] Reading Location: [id number] Cody Case MD IMG XR PROCEDURES Final Res ult * Influenza A/B, RSV, and COVID-19 PCR Nasopharyngeal (10/24/2021 8:37 AM CDT) COVID-19 RNA Negative Negative [facility] ([place]) Influenza A RNA Negative Negative [facility] ([place]) Influenza B RNA Negative Negative [facility] ([place]) RSV RNA Negative Negative [facility] ([place]) Comment: Interpretive data: This test is performed using the Cepheid Xpert Xpress CoV-2/Flu/RSV plus assay. This is [...] infection. Interpretive Data last revised 2021. Nasopharyngeal 10/24/2021 8: 37 AM CDT 10/24/2021 8:40 AM CDT Narrative [facility] ([place]) - 10/24/2021 9:17 AM CDT Is the Patient experiencing symptoms consistent with COVID?->Yes Date of Symptom Onset->10/22/21 Reason for testing?->Bed placement or semi-private room Cody Case MD LAB MICROBIOLOGY - GENERAL ORDERABLES Final Result [facility] ([place]) [address] [facility] [place] [address] documented in this encounter Visit Diagnoses Diagnosis Diabetic ketoacidosis without coma associated with type 1 diabetes mellitus (CMS/HCC) (HCC)- Primary Acute renal failure, unspecified acute renal failure type (HCC) Dehydration, severe Dehydration Depression Depressive disorder, not elsewhere classified Diabetic gastroparesis (CMS/HCC) (HCC) Type II or unspecified type diabetes mellitus with neurological manifestations, not stated as uncontrolled Uncontrolled type 1 diabetes mellitus with hyperglycemia (CMS/HCC) (HCC) Intractable vomiting with nausea Dehydration, severe Dehydration Thrombocytopenia (HCC) Unspecified thrombocytopenia documented in this encounter Admitting Diagnoses Diagnosis Diabetic ketoacidosis without coma associated with type 1 diabetes mellitus (CMS/HCC) (HCC) documented in this encounter Administered Medications Inactive Administered Medications - up to 3 most recent administrations Medication Order MAR Action Action Date Dose Rate Site acetaminophen (TYLENOL) tablet 650 mg 650 mg, oral, Every 4 hours PRN, 1st line for pain, fever, Starting on 10/25/21 at 0555 alteplase (CATHFLO) 1 mg/mL syringe (premix) 1 mg 1 mg, intra-catheter, Once, On Wed10/27/21 at 1330, For 1 dose, 60 to 120 minute dwell time. Refrigerate, Indications: Catheter clearanceIndications:Catheter clearance Given 10/27/2021 1:41 PM CDT 1 mg alteplase (CATHFLO) 1 mg/mL syringe (premix) 1 mg 1 mg, intra-catheter, Once, On Wed10/27/21 at 1330, For 1 dose, 60 to 120 minute dwell time. Refrigerate, Indications: Catheter clearanceIndications:Catheter clearance Given 10/27/2021 1:40 PM CDT 1 mg alteplase (CATHFLO) 1 mg/mL syringe (premix) 1 mg 1 mg, intra-catheter, Once, On Wed10/27/21 at 1330, For 1 dose, 60 to 120 minute dwell time. Refrigerate, Indications: Catheter clearanceIndications:Catheter clearance Given 10/27/2021 1:40 PM CDT 1 mg alteplase (CATHFLO) 1 mg/mL syringe (premix) 1 mg 1 mg, intra-catheter, Once, On Wed10/27/21 at 1600, For 1 dose, 60 to 120 minute dwell time. Refrigerate, Indications: Catheter clearanceIndications:Catheter clearance Given 10/27/2021 4:00 PM CDT 1 mg alteplase (CATHFLO) 1 mg/mL syringe (premix) 1 mg 1 mg, intra-catheter, Once, On Wed10/27/21 at 1600, For 1 dose, 60 to 120 minute dwell time. Refrigerate, Indications: Catheter clearanceIndications:Catheter clearance Given 10/27/2021 4:00 PM CDT 1 mg alteplase (CATHFLO) 1 mg/mL syringe (premix) 1 mg 1 mg, intra-catheter, Once, On Wed10/27/21 at 1600, For 1 dose, 60 to 120 minute dwell time. Refrigerate, Indications: Catheter clearanceIndications:Catheter clearance Given 10/27/2021 4:00 PM CDT 1 mg dextrose (D10W) 10% bolus 250 mL 250 mL, intravenous, at 1,000 mL/hr, Administer over 15 Minutes, Every 15 min PRN, blood glucose less than 70 mg/dL and UNABLE to swallow/take PO glucose/juice., Starting on Wed10/26/21 at 0606, After treatment for hypoglycemia, recheck BG followed by treatment every 15 minutes until the BG is greater than 100 mg/dL. Then check BG 1 hour post treatment. If BG is less than 100 mg/dL, repeat Q15 minute BG checks and treatment. Call MD for each episode of hypoglycemia., Indications: hypoglycemic disorderIndications:hypoglyce lakes[place] disorder dextrose 5% and Lactated Ringer's infusion 50 mL/hr, intravenous, Continuous, Starting on Wed10/24/21 at 1430 New Bag 10/27/2021 3:48 AM CDT 50 mL/hr 50 mL/hr New Bag 10/26/2021 7:57 AM CDT 50 mL/hr 50 mL/hr Rate/Dose Change 10/26/2021 6:18 AM CDT 50 mL/hr 50 mL/h r dextrose gel in packet 15 g 15 g, oral, Every 15 min PRN, low blood sugar, blood glucose less than 70 mg/dL, Starting on Wed10/26/21 at 0606, If patient is alert and able to [...] for each episode of hypoglycemia., Indications: hypoglycemic disorderIndications:hypoglycemi c disorder enoxaparin (LOVENOX) syringe 40 mg 40 mg, subcutaneous, Daily (for enoxaparin), First dose (after last modification) on Wed10/24/21 at 2100, Dose of lovenox adjusted per lovenox protocol for CrCl=>30 ml/min (CrCl=41.7 ml/min); wt=76.2 kg; BMI=30.73, Indications: Deep Vein Thrombosis PreventionIndications:Deep Vein Thrombosis Prevention Given 10/25/2021 8:03 PM CDT 40 mg Left Lower Abdomen Given 10/24/2021 8:05 PM CDT 40 mg Le ft Lower Abdomen famotidine (PEPCID) injection 20 mg 20 mg, intravenous, Administer over 2 Minutes, Every 12 hours scheduled, First dose on Wed10/25/21 at 0900, Indications: Prevention of Stress UlcerIndications:Prevention of Stress Ulcer Given 10/27/2021 9:38 AM CDT 20 mg Given 10/26/2021 9:43 PM CDT 20 mg Given 10/26/2021 8:08 AM CDT 20 mg glucagon injection 1 mg 1 mg, intramuscular, Every 30 min PRN, low blood sugar, blood glucose less than 70 mg/dL AND no IV access AND unable to take PO glucose/juice., Starting on Wed10/26/21 at 0606, After Glucagon is administered, position patient on [...] 1 mL SWFI. Use immediately following reconstitution. HYDROmorphone (DILAUDID) injection 0.5 mg 0.5 mg, intravenous, Administer over 2 Minutes, Once, On Wed10/24/21 at 0819, For 1 dose Given 10/24/2021 8:24 AM CDT 0.5 mg insulin glargine (LANTUS, BASAGLAR, SEMGLEE) 100 unit/mL (3 mL) pen injection 20 Units 20 Units, subcutaneous, Every 12 hours scheduled, First dose (after last modification) on Wed10/26/21 at 0900, Do not hold if NPO. Attach new pen needle required for each administration. Each new pen needle must be primed with 2 units prior to administration. Do not mix with other insulins., Indications: Diabetes MellitusIndications:Diabetes Mellitus Given 10/26/2021 9:43 PM CDT 20 Units Left Upper Arm Given 10/26/2021 8:03 AM CDT 20 Units Ri ght Lower Abdomen insulin glargine (LANTUS, BASAGLAR, SEMGLEE) 100 unit/mL (3 mL) pen injection 25 Units 25 Units, subcutaneous, Every 12 hours scheduled, First dose (after last modification) on Wed10/27/21 at 0900, Do not hold if NPO. Attach new pen needle required for each administration. Each new pen needle must be primed with 2 units prior to administration. Do not mix with other insulins., Indications: Diabetes MellitusIndications:Diabetes Mellitus Given 10/27/2021 10:29 AM CDT 25 Units Left Upper Arm insulin glargine (LANTUS, BASAGLAR, SEMGLEE) 100 unit/mL (3 mL) pen injection 25 Units 25 Units, subcutaneous, Daily, First dose (after last modification) on Wed10/28/21 at 0900, Do not hold if NPO. Attach new pen needle required for each administration. Each new pen needle must be primed with 2 units prior to administration. Do not mix with other insulins., Indications: Diabetes MellitusIndications:Diabetes Mellitus Given 10/28/2021 8:41 AM CDT 25 Units Left Lower Abdomen insulin lispro (HumaLOG, ADMELOG) 100 unit/mL pen injection 0-10 Units 0-10 Units, subcutaneous, 3 times daily with meals, First dose on Wed10/26/21 at 0800, Blood glucose mg/dL: 149 or [...] to administration., Indications: Diabetes MellitusIndications:Diabetes Mellitus Given 10/28/2021 12:10 PM CDT 2 Units Left Lower Abdomen Given 10/28/2021 8:40 AM CDT 6 Units Le ft Upper Arm Given 10/27/2021 1:44 PM CDT 2 Units Ri ght Upper Arm insulin lispro (HumaLOG, ADMELOG) 100 unit/mL pen injection 0-5 Units 0-5 Units, subcutaneous, Nightly, First dose on Wed10/26/21 at 2100, Blood glucose mg/dL: 149 or [...] to administration., Indications: Diabetes MellitusIndications:Diabetes Mellitus Given 10/26/2021 9:43 PM CDT 1 Units Left Upper Arm insulin lispro (HumaLOG, ADMELOG) 100 unit/mL pen injection 6 Units 6 Units (rounded from 6.2831 Units = 0.083 Units/kg ? 75.7 kg), subcutaneous, 3 times daily with meals, First dose on Wed10/26/21 at 0800, If BG greater than or equal to [...] to administration., Indications: Diabetes MellitusIndications:Diabetes Mellitus Given 10/26/2021 5:51 PM CDT 6 Units Right Upper Arm Given 10/26/2021 11:44 AM CDT 6 Units L eft Upper Arm Given 10/26/2021 8:00 AM CDT 6 Units Le ft Lower Abdomen insulin lispro (HumaLOG, ADMELOG) 100 unit/mL pen injection 8 Units 8 Units, subcutaneous, 3 times daily with meals, First dose (after last modification) on Wed10/27/21 at 0800, If BG greater than or equal to [...] to administration., Indications: Diabetes MellitusIndications:Diabetes Mellitus Given 10/28/2021 12:10 PM CDT 8 Units Left Lower Abdomen Given 10/28/2021 8:40 AM CDT 8 Units Le ft Upper Arm Given 10/27/2021 12:20 PM CDT 8 Units R ight Upper Arm insulin regular (HumuLIN R, NovoLIN R) 100 unit/mL injection 10 Units 10 Units, intravenous, Once, On Wed10/24/21 at 0815, For 1 dose, Indications: HyperglycemiaIndications: Hyperglycemia Given 10/24/2021 8:19 AM CDT 10 Units insulin regular in 0.9% sodium chloride (MYXREDLIN) 100 unit/100 mL (1 unit/mL) infusion (premix) 0-30 Units/hr (0-30 mL/hr), 1 units/mL, intravenous, Titrated, Starting on Wed10/24/21 at 0830, Until Wed10/24/21 at 1232, Indications: Hyperglycemia, NON-WEIGHT BASED DOSING Blood Glucose (BG) - BG DECREASED OR SAME as last value: Less than 70 mg/dL - Stop insulin infusion *(see below for drip reinitiation instructions). Follow hypoglycemia orders. Notify covering MD. 70 - 100 mg/dL - Stop infusion *(see below for drip reinitiation instructions). Resume BG Q 1 hour. 101 - 160 mg/dL - If BG decreased by greater than or equal to 40 mg/dL, decrease infusion by 50% or stop infusion if less than or equal to 2 units/hour *(see below for drip reinitiation instructions). Resume BG Q 1 hour. If BG decreased less than 40 mg/dL, continue same rate. 161 - 200 mg/dL- If BG decreased by greater than or equal to 60 mg/dL, decrease infusion by 50% or stop infusion if less than or equal to 2 units/hour *(see below for drip reinitiation instructions). Resume BG Q 1 hour. If BG decreased less than 60 mg/dL, continue same rate. 201 - 250 mg/dl - If BG decreased by greater than or equal to 60 mg/dL continue same rate. If decreased by less than 60 mg/dL, increase by 1 unit/hr. 251 - 300 mg/dL - Increase by 2 units/hour. 301 - 349 mg/dL - Increase by 2 units/hour. 350 - 400 mg/dL - Increase by 3 units/hr. Greater than 400 mg/dL - Notify covering MD Blood Glucose (BG) - Blood glucose INCREASED since last value: 70 - 100 mg/dL - Continue to hold infusion 101 - 160 mg/dL - Maintain at present rate or if drip has been off, follow reinitiation instructions* 161 - 200 mg/dL- Increase by or restart at 1 unit/hour or if drip has been off, follow reinitiation instructions* 201 - 250 mg/dL- Give 4 units insulin IVP then increase infusion by 2 units/hour or if drip has been off, follow reinitiation instructions* 251 - 300 mg/dL - Give 4 units insulin IVP then increase infusion by 2 units/hour or if drip has been off, follow reinitiation instructions* 301 - 349 mg/dL - Give 6 units insulin IVP then increase infusion by 3 units/hour or if drip has been off, follow reinitiation instructions* 350 - 400 mg/dL - Give 6 units insulin IVP then increase infusion by 3 units/hour or if drip has been off, follow reinitiation instructions* Greater than 400 mg/dL - Notify covering MD. *Drip Reinitiation Instructions: Check BG Q 1 hour; when BG greater than 100 mg/dL, restart infusion at 50% of the most recent rate. If the most recent rate less than 2 units/hr, contact covering provider for reinitiation or transition plan. Patients with renal failure (CrCl less than 40 mL/min, urine output less than 30 mL/hr, or receiving dialysis) limit infusion rate increases to be NO SOONER THAN EVERY 3 HOURS. Patients with type 1 diabetes or equivalent: Do not discontinue drip until insulin maintenance regimen is implemented. Notify the provider when stopping the infusion. When new IV tubing is used, completely prime the tubing. Once primed, waste an additional 20 ml of insulin infusion using the IV pump prior to connecting to patient., RoutineIndications:Hyperg lycemia Rate/Dose Change 10/24/2021 11:53 AM CDT 11.4 Units/hr 11.4 mL/hr Rate/Dose Change 10/24/2021 10:51 AM CDT 17.9 Units/hr 17. 9 mL/hr Rate/Dose Change 10/24/2021 9:48 AM CDT 32.3 Units/hr 32.3 mL/hr insulin regular in 0.9% sodium chloride (MYXREDLIN) 100 unit/100 mL (1 unit/mL) infusion (premix) 0-30 Units/hr (0-30 mL/hr), 1 units/mL, intravenous, Titrated, Starting on Wed10/24/21 at 1300, Until Wed10/26/21 at 0607, Indications: Hyperglycemia, Desired Range (mg/dL): 130-180 general patients, Multiplier: 0.02, NON-WEIGHT BASED DOSING Adjust rate per GlucoStabilizer program for dka order When new IV tubing is used, completely prime the tubing. Once primed, waste an additional 20 ml of insulin infusion using the IV pump prior to connecting to patient., RoutineIndications:Hyperglyc emia Rate/Dose Change 10/26/2021 6:02 AM CDT 4.1 Units/hr 4.1 mL/hr Rate/Dose Change 10/26/2021 5:00 AM CDT 2 Units/hr 2 mL/hr Rate/Dose Change 10/26/2021 4:02 AM CDT 0.9 Units/hr 0.9 m L/hr Lactated Ringer's (LR) bolus 1,000 mL 1,000 mL, intravenous, Once, On Wed10/24/21 at 1430, For 1 dose New Bag 10/24/2021 1:56 PM CDT 1,000 mL LORazepam (ATIVAN) injection 0.5 mg 0.5 mg, intravenous, Once, On Wed10/24/21 at 0819, For 1 dose, For IV administration, dilute with equal volume of 0.9% sodium chloride to a final concentration of 1 mg/mL. Do not exceed a rate of 2 mg/minute Given 10/24/2021 8:24 AM CDT 0.5 mg LORazepam (ATIVAN) injection 1 mg 1 mg, intravenous, Once, On Wed10/24/21 at 1132, For 1 dose, For IV administration, dilute with equal volume of 0.9% sodium chloride to a final concentration of 1 mg/mL. Do not exceed a rate of 2 mg/minute Given 10/24/2021 11:34 AM CDT 1 mg metoclopramide (REGLAN) injection 5 mg 5 mg, intravenous, Administer over 1 Minutes, Once, On Wed10/24/21 at 0820, For 1 dose Given 10/24/2021 8:25 AM CDT 5 mg metoclopramide (REGLAN) tablet 10 mg 10 mg, oral, 3 times daily PRN, other, nausea, vomiting, gastroparesis, Starting on 10/27/21 at 0954 ondansetron (ZOFRAN) injection 4 mg 4 mg, intravenous, Administer over 2 Minutes, Once, On Wed10/24/21 at 0820, For 1 dose Given 10/24/2021 8:25 AM CDT 4 mg ondansetron (ZOFRAN) injection 4 mg 4 mg, intravenous, Administer over 2 Minutes, Every 4 hours PRN, nausea, vomiting, Starting on Wed10/25/21 at 0555, Indications: Prevention of Post-Operative Nausea and VomitingIndications:Prevention of Post-Operative Nausea and Vomiting pantoprazole (PROTONIX) 40 mg/10 mL in sodium chloride 0.9% (premix) 40 mg 40 mg, intravenous, Administer over 2 Minutes, Once, On Wed10/24/21 at 0820, For 1 dose, Indications: Stress Ulcer ProphylaxisIndications:Stress Ulcer Prophylaxis Given 10/24/2021 8:27 AM CDT 40 mg potassium chloride 40 mEq/520 mL in sodium chloride 0.9% (premix) 40 mEq 40 mEq, intravenous, at 130 mL/hr, Administer over 4 Hours, Once, On Wed10/26/21 at 0145, For 1 dose, Indications: hypokalemiaIndications:hypokalemi a New Bag 10/26/2021 1:36 AM CDT 40 mEq 130 mL/hr potassium phosphates 12 mmol in sodium chloride 0.9% 250 mL IVPB 12 mmol (rounded from 12.192 mmol = 0.16 mmol/kg ? 76.2 kg), intravenous, at 42.3 mL/hr, Administer over 6 Hours, Once, On Wed10/24/21 at 2100, For 1 dose, For PERIPHERAL line administration Each 1 mmol of phosphorus ordered contains ~1.5 mEq of potassium. New Bag 10/24/2021 8:59 PM CDT 12 mmol 42.3 mL/hr potassium phosphates 30 mmol in sodium chloride 0.9% 250 mL IVPB 30 mmol (rounded from 30.28 mmol = 0.4 mmol/kg ? 75.7 kg), intravenous, at 43.3 mL/hr, Administer over 6 Hours, Once, On Wed10/25/21 at 0800, For 1 dose, For CENTRAL line administration X 1 dose per pharmacy electrolyte replacement protocol for Phos=1.1 on 10/25/21 Central Line ONLY. Each 1 mmol of phosphorus ordered contains ~1.5 mEq of potassium. New Bag 10/25/2021 8:21 AM CDT 30 mmol 43.3 mL/ hr sertraline (ZOLOFT) tablet 50 mg 50 mg, oral, Daily, First dose on Wed10/25/21 at 0900, Indications: depressionIndications:depression Given 10/25/2021 8:21 AM CDT 50 mg sodium chloride 0.9% bolus 1,000 mL 1,000 mL, intravenous, Once, On Wed10/24/21 at 0814, For 1 dose New Bag 10/24/2021 10:26 AM CDT 1,000 mL sodium chloride 0.9% bolus 1,000 mL 1,000 mL, intravenous, Once, On Wed10/24/21 at 0814, For 1 dose New Bag 10/24/2021 9:21 AM CDT 1,000 mL sodium chloride 0.9% bolus 1,000 mL 1,000 mL, intravenous, Once, On Wed10/24/21 at 0814, For 1 dose New Bag 10/24/2021 8:16 AM CDT 1,000 mL sodium chloride 0.9% flush 5-10 mL 5-10 mL, intra-catheter, Every 12 hours scheduled, First dose on Wed10/24/21 at 1400, Flush volume based on line type, size, and protocol. Given 10/24/2021 8:06 PM CDT 10 mL Given 10/24/2021 12:56 PM CDT 10 mL sodium chloride 0.9% flush 5-10 mL 5-10 mL, intra-catheter, Every 12 hours scheduled, First dose on Wed10/24/21 at 1400, Flush volume based on line type, size, and protocol. Given 10/24/2021 8:05 PM CDT 10 mL Given 10/24/2021 12:56 PM CDT 10 mL sodium chloride 0.9% flush 5-20 mL 5-20 mL, intra-catheter, As needed, line care, with each use, Starting on Wed10/24/21 at 1314, Flush volume based on line type, size, and protocol. Given 10/24/2021 12:56 PM CDT 20 mL sodium chloride 0.9% flush 5-20 mL 5-20 mL, intra-catheter, As needed, line care, with each use, Starting on Wed10/24/21 at 1314, Flush volume based on line type, size, and protocol. Given 10/24/2021 12:56 PM CDT 20 mL sodium chloride 0.9% infusion 125 mL/hr, intravenous, Continuous, Starting on Wed10/24/21 at 1315 New Bag 10/24/2021 1:09 PM CDT 125 mL/hr 125 mL/hr documented in this encounter Active and Recently Administered Medications Times are shown in CDT. Scheduled Medication Order 10/26/2021 10/27/2021 10/28/2021 alteplase (CATHFLO) 1 mg/mL syringe (premix) 1 mg (COMPLETED) 1 mg, intra-catheter, Once, On Wed10/27/21 at 1330, For 1 dose, 60 to 120 minute dwell time. Refrigerate, Indications: Catheter clearance 1341 (Given - Provider: Arlen Hanson RN) alteplase (CATHFLO) 1 mg/mL syringe (premix) 1 mg (COMPLETED) 1 mg, intra-catheter, Once, On Wed10/27/21 at 1330, For 1 dose, 60 to 120 minute dwell time. Refrigerate, Indications: Catheter clearance 1340 (Given - Provider: Arlen Hanson RN) alteplase (CATHFLO) 1 mg/mL syringe (premix) 1 mg (COMPLETED) 1 mg, intra-catheter, Once, On Wed10/27/21 at 1330, For 1 dose, 60 to 120 minute dwell time. Refrigerate, Indications: Catheter clearance 1340 (Given - Provider: Arlen Hanson RN) alteplase (CATHFLO) 1 mg/mL syringe (premix) 1 mg (COMPLETED) 1 mg, intra-catheter, Once, On Wed10/27/21 at 1600, For 1 dose, 60 to 120 minute dwell time. Refrigerate, Indications: Catheter clearance 1600 (Given - Provider: Arlen Hanson, MARY) alteplase (CATHFLO) 1 mg/mL syringe (premix) 1 mg (COMPLETED) 1 mg, intra-catheter, Once, On Wed10/27/21 at 1600, For 1 dose, 60 to 120 minute dwell time. Refrigerate, Indications: Catheter clearance 1600 (Given - Provider: Arlen Hanson RN) alteplase (CATHFLO) 1 mg/mL syringe (premix) 1 mg (COMPLETED) 1 mg, intra-catheter, Once, On Wed10/27/21 at 1600, For 1 dose, 60 to 120 minute dwell time. Refrigerate, Indications: Catheter clearance 1600 (Given - Provider: Arlen Hanson RN) famotidine (PEPCID) injection 20 mg (CANCELED) 20 mg, intravenous, Administer over 2 Minutes, Every 12 hours scheduled, First dose on Wed10/25/21 at 0900, Indications: Prevention of Stress Ulcer 0808 (Given - Provider: Marina Del Valle, MARY)2143 (Given - Provider: Gilma Harding, MARY) 0938 (Given - Provider: Lucas Govea RN) insulin glargine (LANTUS, BASAGLAR, SEMGLEE) 100 unit/mL (3 mL) pen injection 20 Units (CANCELED) 20 Units, subcutaneous, Every 12 hours scheduled, First dose (after last modification) on Wed10/26/21 at 0900, Do not hold if NPO. Attach new pen needle required for each administration. Each new pen needle must be primed with 2 units prior to administration. Do not mix with other insulins., Indications: Diabetes Mellitus 0803 (Given - Provider: Marina Del Valle, MARY)2142 (Given - Provider: Gilma Harding, MARY) insulin glargine (LANTUS, BASAGLAR, SEMGLEE) 100 unit/mL (3 mL) pen injection 25 Units (CANCELED) 25 Units, subcutaneous, Every 12 hours scheduled, First dose (after last modification) on Wed10/27/21 at 0900, Do not hold if NPO. Attach new pen needle required for each administration. Each new pen needle must be primed with 2 units prior to administration. Do not mix with other insulins., Indications: Diabetes Mellitus 1029 (Given - Provider: Lucas Govea, MARY) insulin glargine (LANTUS, BASAGLAR, SEMGLEE) 100 unit/mL (3 mL) pen injection 25 Units 25 Units, subcutaneous, Daily, First dose (after last modification) on Wed10/28/21 at 0900, Do not hold if NPO. Attach new pen needle required for each administration. Each new pen needle must be primed with 2 units prior to administration. Do not mix with other insulins., Indications: Diabetes Mellitus 1510 (Held by Provider - Provider: Leroy Bustamante MD - Reason: Other) 0601 (Unheld by Provider - Provider: Leroy Bustamante MD)0841 (Given - Provider: Kimber Petty, MARY) insulin lispro (HumaLOG, ADMELOG) 100 unit/mL pen injection 0-10 Units 0-10 Units, subcutaneous, 3 times daily with meals, First dose on Wed10/26/21 at 0800, Blood glucose mg/dL: 149 or [...] units prior to administration., Indications: Diabetes Mellitus 0802 (Given - Provider: Marina Del Valle, MARY)1144 (Given - Provider: Marina Del Valle, MARY)1750 (Given - Provider: Lucas Govea, MARY) 0920 (Given - Provider: Lucas Govea, MARY)1344 (Given - Provider: Lucas Govea, MARY)1820 (Not Given - Provider: Lucas Govea RN - Reason: Order parameters not met) 0840 (Given - Provider: Kimber Petty RN)1210 (Given - Provider: Kimber Petty RN)165 (Not Given - Provider: Kimber Petty RN - Reason: Order parameters not met - Comment: fs-40. dr bustamante at bedside) insulin lispro (HumaLOG, ADMELOG) 100 unit/mL pen injection 0-5 Units 0-5 Units, subcutaneous, Nightly, First dose on 10/26/21 at 2100, Blood glucose mg/dL: 149 or [...] units prior to administration., Indications: Diabetes Mellitus 2142 (Given - Provider: Gilma Harding RN) 2110 (Not Given - Provider: Minerva Vail RN - Reason: Order parameters not met) insulin lispro (HumaLOG, ADMELOG) 100 unit/mL pen injection 6 Units (CANCELED) 6 Units (rounded from 6.2831 Units = 0.083 Units/kg ? 75.7 kg), subcutaneous, 3 times daily with meals, First dose on 10/26/21 at 0800, If BG greater than or equal to [...] prior to administration., Indications: Diabetes Mellitus 0800 (Given - Provider: Marina Del Valle, MARY)1144 (Given - Provider: Marina Del Valle, MARY)1751 (Given - Provider: Lucas Govea RN) insulin lispro (HumaLOG, ADMELOG) 100 unit/mL pen injection 8 Units 8 Units, subcutaneous, 3 times daily with meals, First dose (after last modification) on Wed10/27/21 at 0800, If BG greater than or equal to [...] units prior to administration., Indications: Diabetes Mellitus 0920 (Given - Provider: Lucas Govea, RN)1220 (Given - Provider: Lucas Govea RN)1515 (Held by Provider - Provider: Leroy Bustamante MD - Reason: Other)1800 (Dose Auto Held - Provider: Leroy Bustamante MD) 0601 (Unheld by Provider - Provider: Leroy Bustamante MD)0840 (Given - Provider: Kimber Petty, MARY)1210 (Given - Provider: Kimber Petty, MARY)1653 (Not Given - Provider: Kimber Petty RN - Reason: Other - Comment: fs-40. dr bustamante at bedside) potassium chloride 40 mEq/520 mL in sodium chloride 0.9% (premix) 40 mEq (COMPLETED) 40 mEq, intravenous, at 130 mL/hr, Administer over 4 Hours, Once, On Wed10/26/21 at 0145, For 1 dose, Indications: hypokalemia 0136 (New Bag - Provider: Sivakumar Monet, MARY) Continuous Medication Order 10/26/2021 10/27/2021 10/28/2021 dextrose 5% and Lactated Ringer's infusion (CANCELED) 50 mL/hr, intravenous, Continuous, Starting on Wed10/24/21 at 1430 0618 (Rate/Dose Change - Provider: Sivakumar Monet, MARY)0757 (New Bag - Provider: Marina Del Valle, MARY) 0348 (New Bag - Provider: Gilma Harding RN) 1030 (Not Given - Provider: Kimber Petty RN - Reason: Other) insulin regular in 0.9% sodium chloride (MYXREDLIN) 100 unit/100 mL (1 unit/mL) infusion (premix) (CANCELED) 0-30 Units/hr (0-30 mL/hr), 1 units/mL, intravenous, Titrated, Starting on Wed10/24/21 at 1300, Until 10/26/21 at 0607, Indications: Hyperglycemia, Desired Range (mg/dL): 130-180 general patients, Multiplier: 0.02, NON-WEIGHT BASED DOSING Adjust rate per GlucoStabilizer program for dka order When new IV tubing is used, completely prime the tubing. Once primed, waste an additional 20 ml of insulin infusion using the IV pump prior to connecting to patient., Routine 0100 (Rate/Dose Change - Provider: Sivakumar Monet RN)0209 (Rate/Dose Change - Provider: Sivakumar Monet RN)0259 (Rate/Dose Change - Provider: Sivakumar Monet RN)0343 (New Bag - Provider: Sivakumar Monet RN)0402 (Rate/Dose Change - Provider: Sivakumar Monet RN)0500 (Rate/Dose Change - Provider: Sivakumar Monet RN)0602 (Rate/Dose Change - Provider: Sivakumar Monet RN)0618 (Stopped - Provider: Sivakumar Monet RN) PRN Medication Order 10/26/2021 10/27/2021 10/28/2021 acetaminophen (TYLENOL) tablet 650 mg 650 mg, oral, Every 4 hours PRN, 1st line for pain, fever, Starting on 10/25/21 at 0555 dextrose (D10W) 10% bolus 250 mL(Linked Group 1) 250 mL, intravenous, at 1,000 mL/hr, Administer over 15 Minutes, Every 15 min PRN, blood glucose less than 70 mg/dL and UNABLE to swallow/take PO glucose/juice., Starting on 10/26/21 at 0606, After treatment for hypoglycemia, recheck BG followed [...] glucose less than 70 mg/dL, Starting on 10/26/21 at 0606, If patient is alert and able to [...] unable to take PO glucose/juice., Starting on 10/26/21 at 0606, After Glucagon is administered, position patient on [...] 1 mL SWFI. Use immediately following reconstitution. metoclopramide (REGLAN) tablet 10 mg 10 mg, oral, 3 times daily PRN, other, nausea, vomiting, gastroparesis, Starting on 10/27/21 at 0954 ondansetron (ZOFRAN) injection 4 mg 4 mg, intravenous, Administer over 2 Minutes, Every 4 hours PRN, nausea, vomiting, Starting on 10/25/21 at 0555, Indications: Prevention of Post-Operative Nausea and Vomiting sodium chloride 0.9% flush 5-20 mL 5-20 mL, intra-catheter, As needed, line care, with each use, Starting on Wed10/24/21 at 1314, Flush volume based on line type, size, and protocol. Linked Groups Order Group 1: dextrose gel in packet 15 gJump to med 15 g, oral, Every 15 min PRN, low blood sugar, blood glucose less than 70 mg/dL, Starting on 10/26/21 at 0606, If patient is alert and able to [...] UNABLE to swallow/take PO glucose/juice., Starting on 10/26/21 at 0606, After treatment for hypoglycemia, recheck BG followed [...] Count Last Ordered Date First Ordered Date famotidine (PEPCID) tablet 20 mg 1 10/28/19 metoclopramide (REGLAN) tablet 10 mg 1 10/02 dextrose (D10W) 10% bolus 250 mL 2 10/27/19 22 10/24/2021 dextrose gel in packet 15 g 2 10/26/2021 10/24/2021 glucagon injection 1 mg 2 10/26/202110/02 insulin glargine (LANTUS, BA SAGLAR, SEMGLEE) 100 unit/mL (3 mL) pen injection 19 Units 1 10/26/2021 potassium chloride (KLOR-CON ) packet 40 mEq 1 10/26/2021 acetaminophen (TYLENOL) tablet 650 mg 1 ondansetron (ZOFRAN) injection 4 mg 1 10/25 dextrose (D10W) 10% bolus 1-500 mL 1 2021 dextrose 5% infusion 1 10/24/2021 enoxaparin (LOVENOX) syringe 30 mg 1 2021 HYDROmorphone (DILAUDID) injection 0.5 mg 1 10/24/2021 insulin regular bolus from bag 1-10 Units 1 10/24/2021 insulin regular bolus from bag 4-10 Units 1 10/24/2021 insulin regular bolus from bag 4-6 Units 1 10/24/2021 lidocaine PF (XYLOCAINE) 10 mg/mL (1 %) preservative free injection 100 mg 1 10/24/2021 LORazepam (ATIVAN) injection 0.5 mg 1 10/24 metoclopramide (REGLAN) injection 10 mg 1 0 10/24/2021 Lab Orders Without Results Count Last Ordered D ate First Ordered Date POCT GLUCOSE DEVICE 11 10/28/2021 10/25/19 Nursing Count Last Ordered Date First Orde red Date ASSESS 1 10/24/2021 WEIGH PATIENT 1 10/24/2021 Transfer Count Last Ordered Date First Orde red Date TRANSFER PATIENT 1 10/26/2021 CORE MEASURES Count Last Ordered Date First Ord ered Date REASON FOR NO VTE PROPHYLAXIS AT ADMISSION 1 10/27/2021 ADT Patient Update Count Last Ordered Date Firs t Ordered Date ED IP DECISION TO ADMIT 1 10/24/2021 documented in this encounter Additional Health Concerns Infection Onset Date Last Indicated Resolved Time COVID: Suspected 10/24/2021 10/24/2021 10/24/2021 9:18 AM CDT documented as of this encounter Care Teams Higher Education Administrator Relationship Specialty Start Date End Date No, Physician PCP - General 07/20/21 11/19/21 Warren Phillips MD Consulting Physician Gastroenterology 02/16/19 Miscellaneous, Not In File 07/23/21 documented as of this encounter
--- OUTSIDE RECORDS SUMMARY | 2024-05-10 18:38 | XMS_ITS | Encounter Summary ---
Author Organization [facility] Healthcare Address [address] [place] [address] Care Team Providers Care Direct Mail Manager Name Role Phone Carrie Joseph Primary Care Provider + Warren Phillips MD Unavailable [phone] Encounter Details Date Type Department Care Team (Latest Contact Info) Description 03/04/2021 5:52 AM CDT - 03/04/2021 6:25 AM CDT Hospital Encounter [facility] [...] drink containing alc ohol? Monthly or less 03/04/2021 Q2: How many drinks containi ng alcohol do you have on a typical day when you are drinking? 1 or 2 03/04/2021 Q3: How often do you have si x or more drinks on one occasion? Never 03/04/2021 PHQ-2 Answer Date Recorded PHQ-2 Total Score (If total score is 3 or more points, staff should administer the PHQ-9) 0 03/13/2020 Comments No Sex and Gender Information Value Date Recorded Sex Assigned at Not on file Legal Sex Female 3:13 AM QUOTER Gender Identity Not on file Sexual Orientation [...] on filedocumented in this encounter Care Teams Direct Mail Manager Relationship Specialty Start Date End Date Carrie Joseph PA [address] [place] [address] PCP - General 10/04/18 07/19/21 Warren Phillips MD [address] [place] [address] Consulting Physician Gastroenterology 02/16/19 documented as of this encounter
--- OUTSIDE RECORDS SUMMARY | 2024-05-10 18:38 | XMS_ITS | Encounter Summary ---
Author Organization [facility] Healthcare Address [address] [place] [address] Care Team Providers Care Cost Control Supervisor Name Role Phone Carrie Joseph Primary Care Provider + Warren Phillips MD Unavailable [phone] Reason for Visit * Reason Comments Vomiting Hyperglycemia Encounter Details Date Type Department Care Team (Late st Contact Info) Description 03/25/2021 8:53 AM COMMODITY TRADER - 03/27/2021 12:33 PM COMMODITY TRADER Hospital Encounter [facility] [address] [place] [address] Thai Zhu MD [address] [place] [address] [place] [address] Dominic Camara MD [address] [facility] [address] [place] [address] Airam Small MD [address] [place] [address] [place] [address] Tachycardia (Primary Dx); Diabetic ketoacidosis with coma associated [...] drink containing alc ohol? Monthly or less 03/25/2021 Q2: How many drinks containi ng alcohol do you have on a typical day when you are drinking? 1 or 2 03/25/2021 Q3: How often do you have si x or more drinks on one occasion? Never 03/25/2021 PHQ-2 Answer Date Recorded PHQ-2 Total Score (If total score is 3 or more points, staff should administer the PHQ-9) 0 03/13/2020 Comments No Sex and Gender Information Value Date Recorded Sex Assigned at Not on file Legal Sex Female 3:13 AM COMMODITY TRADER Gender Identity Not on file Sexual Orientation Not on file documented as of this encounter Last Filed Vital Signs Vital Sign Reading Time Taken Comments Blood Pressure 117/61 03/27/2021 7:49 AM COMMODITY TRADER Pulse 78 03/27/2021 7:49 AM COMMODITY TRADER Temperature 37.4 ??C (99.4 ??F) 03/27/2021 7:49 AM CS T Respiratory Rate 15 03/27/2021 7:49 AM COMMODITY TRADER Oxygen Saturation 92% 03/27/2021 7:49 AM COMMODITY TRADER Inhaled Oxygen Concentration - - Weight 64.1 kg (141 lb 5 oz) 03/26/2021 6:00 AM COMMODITY TRADER Height 157.5 cm (5' 2 ) 03/25/2021 12:40 PM COMMODITY TRADER Body Mass Index 25.85 03/25/2021 12:40 PM COMMODITY TRADER documented in this encounter Discharge Diagnoses Diagnosis Type 1 diabetes mellitus with ketoacidosis with coma (HCC) - TYPE 1 DIABETES MELLITUS WITH KETOACIDOSIS WITH COMA Acute kidney failure, unspecified (HCC) - ACUTE KIDNEY FAILURE, UNSPECIFIED Acute kidney failure, unspecified Depression, unspecified - DEPRESSION, UNSPECIFIED intermodal customer service (current) use of insulin (HCC) - FDC (CURRENT) USE OF INSULIN 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 providers found Primary Care Physician at Discharge: Carrie Joseph PA [phone] Admission Date: 03/25/2021 Discharge Date: 03/27/2021 Admission Location: [facility] Problems/Diagnoses: Principal Problem: Diabetic ketoacidosis with coma associated with type 1 diabetes mellitus (CMS/HCC) (HCC) Resolved Problems: No resolved hospital problems. DETAILS OF HOSPITAL STAY Presenting Problem/History of Present Illness: Patient is a 25-year-old woman with a history of type 1 diabetes complicated by gastroparesis and cannabis use who presented with nausea, vomiting, and altered mental status. Onset 2 days ago. Had not been taking insulin because not feeling well. Hospital Course: Patient was found to have DKA and was admitted to ICU on an insulin drip. Once sugars improved, pt was transferred out to IMU yesterday. Sugars have been stable since then. Home dose of insulin resumed. personal development educator RN saw the patient and reviewed sick day guidelines. Patient has an upcoming appointment with her almond blancher Dr. Sanches in April, advised to keep appt. Time spent: 33 mins Active Issues Requiring Follow-up: Test Results Pending at Discharge: Operative Procedures Performed: Other Procedures: Pertinent Test Results: Discharge Details Physical Exam at Discharge: Discharge Condition: stable Pulse: 78 Resp: 15 BP: 117/61 Temp: 37.4 ??C (99.4 ??F) Weight: 64.1 kg (141 lb 5 oz) Pertinent Exam Findings at Discharge: Gen: awake, no acute distress, pleasant and cooperative Neuro: no focal deficits, CN II-XII grossly intact Eyes: extraocular movement intact, sclerae anicteric HENT: supple, no JVD CV: regular rate and rhythm; no murmurs, rubs, or gallops; no peripheral edema; 2+ pulses in all extremities Pulm: clear to auscultation bilaterally; no wheezes, rales, or rhonchi GI: soft, non-tender, non-distended MSK: no cyanosis, clubbing Skin: warm, dry Psych: normal mood and affect Discharge Disposition: Discharge to home or self care Code Status at Discharge: Full code Discharge Instructions: Activity Instructions Discharge activity: Resume normal activity Diet Instructions Adult Discharge Diet Diet Type: Return to previous diet Other Instructions Call provider for: Temperature -Temperature greater than 101 degrees F Call provider for: difficulty breathing or chest pain Call provider for: extreme fatigue Call provider for: hives Call provider for: persistent dizziness or light-headedness Call provider for: persistent nausea or vomiting Call provider for: redness, tenderness, or signs of infection (pain, swelling, redness, odor or green/yellow discharge around incision site) Call provider for: severe uncontrolled pain Call provider for: headache, visual disturbances, weakness and speech changes If you have any questions or concerns please call us back at [phone]. We would be more than happy to help answer any questions you have. [facility] strives to provide excellent care. We hope that you feel you have received excellent care. Discharge Medications: Current Medications TAKE these medications insulin glargine 100 unit/mL (3 mL) pen for injection Inject 15 Units under the skin nightly Commonly known as: LANTUS, BASAGLAR, SEMGLEE Notes to patient: Diabetes insulin lispro 100 unit/mL vial for injection Inject under the skin 3 (three) times a day before meals Uses per sliding scale 1 unit per every 7-8 grams of carb max of 50 units per day Commonly known as: HumaLOG, ADMELOG Notes to patient: Diabetes insulin syringe-needle U-100 0.3 mL 31 gauge x 5/16 syringe 1 Syringe OneTouch Verio test strips strip USE 1 STRIP TO CHECK GLUCOSE 4 TIMES DAILY Generic drug: blood glucose diagnostic TechLITE Insuln Syr(half unit) 0.3 mL 31 gauge x 5/16 syringe USE ONE NEW SYRINGE 4 TIMES Generic drug: insulin syr/ndl U100 half jeremias Outpatient Follow-Up: Contact Information for Follow-ups Carrie Joseph PA Specialty: Internal Medicine, Physician [place] Operator, Emergency Medicine Relationship: PCP - General SI [address] [facility] [id number] Next Steps: Follow up ODITY TRADER documented in this encounter Discharge Instructions * Discharge Instr - Other Orders* Nahomi Yu RN - 03/27/2021 11:23 AM COMMODITY TRADER If you have any questions or concerns please call us back at [phone]. We would be more than happy to help answer any questions you have. [facility] strives to provide excellent care. We hope that you feel you have received excellent care. ODITY TRADER documented in this encounter Medications at Time [...] documented in this encounter Progress Notes * Amanda Smith, MARY - 03/26/2021 2:06 PM CST Karina Menjivar [id number] Dominic Camara MD Pre-Education Assessment Visit Type: Initial Introduction: ID verified,Alert/ oriented x 4,Education provided with patient approval,Patient present for education Provider: Medical/Geological Scout/PCP Knowledge Base: Experienced Home Testing: Greater than 2 times per day Home Supplies: No assistance needed Diabetes Management Education Provided: Please see the Patient Education Activity Patient seen as requested for diabetes education. Patient known to me from previous visits. She hasfrequent admissions for DKA and has gastroparesis. Patient reports she was sick for days prior to admission and was unable to keep any food down. States she was taking her insulin and that her boyfriend was checking her blood sugars. Reviewed sick day guidelines with patient. Discussed the need to follow up with her almond blancher after discharge. Patient sees Dr. Sanches and states she has an appointment coming up in Apr. Admits she missed an appointment in Mar. Because she was hospitalized with DKA. Discussed the importance of keeping this appointment with her almond blancher. Patient voiced understanding. Amanda Smith RN, Team Primary Care Physician 03/26/2021 2:06 PM ODITY TRADER * Lucinda Woodward, DIANDRA - 03/26/2021 12:02 PM CST Nutrition Assessment Reason for Assessment: Screened at Nutrition Risk and Initial Nutrition Assessment Encounter Date: 03/26/21 12:10 PM Nutrition Assessment and Plan: Patient is a 25 y.o. female. Admit Dx: DIABETIC KETOACIDOSIS WITH COMA ASSOCIATED WITH TYPE 1 DIABETES MELLITUS (CMS/HCC) (HCC) (PRIMARY ENCOUNTER DIAGNOSIS). Admitted on 03/25/2021, current LOS is 1days. Pediatric Nutrition Screen What diet do you follow at home?: Regular Adult Malnutrition Scoring Tool (MST) What diet do you follow at home?: Regular Have You Recently Lost Weight Without Trying?: Unsure Have you been eating poorly because of a decreased appetite?: Yes Malnutrition Screening Tool (MST) Score: 3 Current diet order: Adult Diet Restricted; Consistent Carbohydrate Pt intake na. PO intakes: na ASSESSMENT:3 MST. Pt unsure of weight loss (2) and poor appetite (1). Pt has lost 2.7% weight in 3 weeks which is possible with poorly controlled diabetes. Suggest obtaining HgbA1c. Nutrition Diagnosis 1: (3 MST) Related to: Nausea,Loss of appetite Evidenced by: Weight loss,Physical finding Interventions: [place] diet preferences within the limits of nutrition care order,Education, nutrition Monitoring and Evaluation: Blood glucoses,Discharge plans,Labs,PO intake ?? Goals: Patient/caregiver able to teach back understanding of role of diet in disease process prior to discharge Wt Readings from Last 10 Encounters: 03/26/21 64.1 kg (141 lb 5 oz) 03/05/21 66 kg (145 lb 8.1 oz) 11/16/20 73.5 kg (162 lb) 11/17/20 73.5 kg (162 lb 0.6 oz) 03/12/20 72.6 kg (160 lb) 03/07/20 73.9 kg (163 lb) 12/01/19 75.9 kg (167 lb 5.3 oz) 06/16/19 61 kg (134 lb 7.7 oz) 04/26/19 59.7 kg (131 lb 9.8 oz) 04/24/19 59.8 kg (131 lb 13.4 oz) Estimated needs: ?? Total Kcal/kg Estimated Needs : 1602.5 based on Kcal/k. Type of Weight Used for Estimated Kcals: Current ?? MSJ Total Energy Needs: 1612.8 kcal using Activity Factor: 1.2 ?? DEBORAH State Total Energy Needs + Fever Factor: 1612.8 ?? Total Protein Estimated Needs (gm): 64.1 Protein Needs Based on g/k.0 Type of Weight Used for Estimated Protein : Current. ?? Total Fluid Estimated Needs: 1602.5 Fluid Needs Based on : 1 ml/kcal. Objective Anthropometrics Weight: 64.1 kg (141 lb 5 oz) Admission Weight : 59.8 kg Weight Change: 4.30 kg (9.48 lbs) IBW/kg (Calculated) : 49.9 kg Height: 157.5 cm (5' 2 ) Weight in (lb) to have BMI = 25: 136.4 BMI (Calculated): 25.8 3 Day I/O Summary 03/240 - 03/26 0659 In: 2280.2 [P.O.:40; I.V.:2240.2] Out: - Temp: 36.3 ??C (97.3 ??F) Past Medical [...] lispro, 0.083 Units/kg, subcutaneous, TID with meals metoprolol tartrate, 6.25 mg, oral, BID Continuous Infusions: Sodium Date Value Ref Range Status 03/26/2021 142 135 - 145 mmol/L Final Potassium, pl Date Value Ref Range Status 03/26/2021 3.7 3.3 - 4.9 mmol/L Final BUN Date Value Ref Range Status 03/26/2021 32 (H) 8 - 25 mg/dL Final Creatinine Date Value Ref Range Status 03/26/2021 0.58 (L) 0.60 - 1.10 mg/dL Final Albumin Date Value Ref Range Status 03/26/2021 4.1 3.5 - 5.0 g/dL Final Calcium Date Value Ref Range Status 03/26/2021 9.6 8.5 - 10.3 mg/dL Final Lab Results Component Value Date HGBA1C 8.4 (H) 11/29/2019 POC Glucose: 126(03/26) Nursing Assessment: Bowel Sounds (All Quadrants): Active Teodoro Scale Score: 19 Nutrition Follow-Up : 03/28/[address],LDN ODITY TRADER * Amanda Smith, RN - 03/26/2021 8:59 AM CST Attempted to see patient for diabetes education. Patient resting at this time. Will follow up at a later time. Amanda Smith BSN gallery director ODITY TRADER * Dominic Camara MD - 03/26/2021 6:46 AM CST Progress Note Critical Care Subjective: Cooperative Chief complaint of DKA Interval History: 25-year-old female history of diabetes mellitus gastro paresis esophagitis cannabis hyperemesis depression medical noncompliance admitted with altered mental status hyperglycemia diagnosed with DKA as per previous admissions. Treated with insulin infusion preloaded with crystalloid now the anion gap is closing she can be transitioned to subcutaneous insulin diabetes education advanced on diet. Review of Systems All other systems reviewed and are negative. Medications: enoxaparin, 40 mg, subcutaneous, Daily-2100 famotidine, 20 mg, intravenous, Q12H BOB metoprolol, 2.5 mg, intravenous, Q6H BOB Subjective: Vitals: 24hr Min/Max: Temp Min: 36.4 ??C (97.6 ??F) Max: 37.6 ??C (99.6 ??F) Pulse Min: 115 Max: 167 BP Min: 81/39 Max: 137/82 Resp Min: 8 Max: 34 SpO2 Min: 98 % Max: 100 % Date 03/25/21699 - 03/26/21 0659 03/26/21699 - 03/27/21 0659 Shift 5205-7949 7341-6888 24 Hour Total 0126-8736 6914-0888 24 Hour Total INTAKE P.O. 40 40 I.V.(mL/kg) 1001(16.7) 1239.3(19.3) 2240.2(34.9) Shift Total(mL/kg) 1001(16.7) 1279.3(20) 2280.2(35.6) OUTPUT Shift Total(mL/kg) NET 1001 1279.3 2280.2 Weight (kg) 59.8 64.1 64.1 64.1 64.1 64.1 Physical Exam Vitals and nursing note reviewed. Constitutional: Appearance: Normal appearance. HENT: Head: Normocephalic. Nose: Nose normal. Mouth/Throat: Mouth: Mucous membranes are moist. Eyes: Extraocular Movements: Extraocular movements intact. Cardiovascular: Rate and Rhythm: Regular rhythm. Pulses: Normal pulses. Pulmonary: Effort: Pulmonary effort is normal. Abdominal: Palpations: Abdomen is soft. Musculoskeletal: Cervical back: Neck supple. Skin: General: Skin is warm. Neurological: General: No focal deficit present. Psychiatric: Mood and Affect: Mood normal. Lab/Radiology/Diagnostic Review: Lab Results Component Value Date WBC 12.3 (H) 03/25/2021 HGB 10.5 (L) 03/25/2021 HCT 33.3 (L) 03/25/2021 LABPLAT 401 (H) 03/25/2021 CHOL 160 02/08/2017 TRIG 66 02/08/2017 HDL 57 02/08/2017 ALT 20 03/26/2021 AST 10 03/26/2021 SODIUM 146 (H) 03/26/2021 POTASSIUM 3.9 03/26/2021 CHLORIDE 112 (H) 03/26/2021 CREATININE 0.82 03/26/2021 BUNSER 39 (H) 03/26/2021 CO2 21 (L) 03/26/2021 TSH 0.64 03/04/2021 INR 1.2 03/12/2020 HGBA1C 8.4 (H) 11/29/2019 A/P: Principal Problem: Diabetic ketoacidosis with coma associated with type 1 diabetes mellitus (CMS/HCC) (HCC) WASH OPERATOR: Awake nonfocal Cardiac: Stable mild tachycardia on Lopressor hydrated Pulm: Stable GI/Nutrition: Advance diet continue GI protection Renal: Stable improving USMAN Heme: DVT precautions ID: No issues Critical Care Time: I have spent 65 minutes in full attendance with this critically ill patient making frequent reassessments and decisions regarding this patient's complex medical care. Critical care time was exclusive of separately billable procedures, treating other patients and teaching time. Dominic Camara MD ODITY TRADER documented in this encounter H&P Notes * Dominic Camara MD - 03/25/2021 3:40 PM CST Consult Note Patient Name: Karina Menjivar Date of : 1995 Primary Physician: Carrie Joseph PA Requesting Physician: Emergency department Admission Date: 03/25/2021 Length of Stay: 0 Chief Complaint Diabetic ketoacidosis HPI Karina Menjivar is a 25 y.o. female seen in consultation for nausea vomiting hyperglycemia with diabetic ketoacidosis. The patient is seen in the ICU after transferring from the ER where she had been admitted from homewhere she resides complaining of nausea vomit hyperglycemia weakness dehydration found to be in diabetic ketoacidosis. She lives with significant other she has a child and history of D/C depression no cigarette smoking no excessive alcohol use however frequent use of cannabis with the resulting hyperemesis she has diabetes mellitus with frequent admissions for hyperglycemia ketoacidosis nausea vomiting she had previous upper endoscopies and documented esophagitis. She was placed on insulin infusion preloaded with 2 liters of crystalloid solution transferred to ICU lethargic but easily arousable non focal with serial laboratory workup. Past Medical History Past Medical History: Diagnosis Date ??? Depression ??? Diabetes mellitus (HCC) T1DM ??? HX OTHER MEDICAL 2011 Diabetes mellitus, type 1 ??? Miscarriage Past Surgical History Past Surgical History: Procedure Laterality Date ??? SECTION, CLASSIC 2016 ??? TONSILLECTOMY Bilateral 2002 Medications Medications Prior to Admission Medication Sig Dispense Refill Last Dose ??? insulin glargine (LANTUS, BASAGLAR, SEMGLEE) 100 unit/mL (3 mL) pen for injection Inject 15 Units under the skin nightly Past Week at Unknown time ??? insulin lispro (HumaLOG) 100 unit/mL injection Inject under the skin 3 (three) times a day before meals Uses per sliding scale 1 unit per every 7-8 grams of carb max of 50 units per day Past Weekat Unknown time ??? insulin syringe-needle U-100 0.3 [...] systems reviewed and are negative. Objective Vitals: 03/25/21 1240 03/25/21 1300 03/25/21 1400 03/25/21 1500 BP: 131/81 106/60 116/58 BP Location: Right arm Right arm Right arm Patient Position: Lying Lying Lying Pulse: (!) 160 (!) 161 (!) 162 (!) 134 Resp: 21 (!) 34 20 21 Temp: 37.6 ??C (99.6 ??F) TempSrc: Temporal SpO2: 100% 100% 100% Weight: 59.8 kg (131 lb 13.4 oz) Height: 157.5 cm (5' 2 ) Physical Exam Vitals and nursing note reviewed. Constitutional: Appearance: She is ill-appearing. HENT: Head: Normocephalic. Nose: Nose normal. Mouth/Throat: Mouth: Mucous membranes are moist. Eyes: Extraocular Movements: Extraocular movements intact. Cardiovascular: Rate and Rhythm: Tachycardia present. Heart sounds: Normal heart sounds. Pulmonary: Effort: Pulmonary effort is normal. Abdominal: Palpations: Abdomen is soft. Musculoskeletal: General: No deformity. Cervical back: Neck supple. Skin: General: Skin is warm. Neurological: General: No focal deficit present. Diagnostics Recent Results (from the past 24 hour(s)) CBC with auto differential Collection Time: 03/25/21 9:30 AM Result Value Ref Range WBC 17.6 (H) 3.8 - 9.9 K/cumm Hgb 12.9 11.9 - 15.5 g/dL Hct 43.6 35.6 - 45.5 % Plt 665 (H) 150 - 400 K/cumm MPV 9.7 9.1 - 12.3 fL RBC 4.83 3.90 - 5.20 M/cumm MCV 90.3 81.3 - 96.4 fL MCH 26.7 (L) 27.1 - 33.3 pg MCHC 29.6 (L) 32.3 - 35.7 g/dL RDW CV 18.1 (H) 11.1 - 14.9 % RDW SD 58.2 (H) 35.7 - 48.1 fL NRBC abs 0.00 0.00 - 0.01 K/cumm Beta-hydroxybutyrate Collection Time: 03/25/21 9:30 AM Result Value Ref Range Beta-Hydroxybutyrate 11.0 (H) <=0.5 mmol/L Comprehensive metabolic panel Collection Time: 03/25/21 9:30 AM Result Value Ref Range Sodium 142 135 - 145 mmol/L Potassium, pl 5.3 (H) 3.3 - 4.9 mmol/L Chloride 103 97 - 110 mmol/L CO2 3 (L) 22 - 32 mmol/L Anion gap 36 (H) 2 - 15 mmol/L BUN 54 (H) 8 - 25 mg/dL Creatinine 1.74 (H) 0.60 - 1.10 mg/dL Glucose 603 (Critical) 70 - 199 mg/dL Calcium 10.2 8.5 - 10.3 mg/dL Bilirubin, total 0.6 0.1 - 1.2 mg/dL Protein, pl 7.7 6.5 - 8.5 g/dL Albumin 4.4 3.5 - 5.0 g/dL Alk phos 110 40 - 130 Units/L ALT 30 7 - 45 Units/L AST 9 (L) 10 - 45 Units/L Differential, auto Collection Time: 03/25/21 9:30 AM Result Value Ref Range Neutrophil abs 13.8 (H) 1.7 - 6.5 K/cumm Imm gran abs 0.4 (H) 0.0 - 0.1 K/cumm Lymphocyte abs 1.1 0.8 - 3.3 K/cumm Monocyte abs 2.4 (H) 0.2 - 0.8 K/cumm Eosinophil abs 0.0 0.0 - 0.5 K/cumm Basophil abs 0.1 0.0 - 0.1 K/cumm Neutrophil pct 78.0 % Imm gran pct 2.2 % Lymphocyte pct 6.2 % Monocyte pct 13.3 % Eosinophil pct 0.0 % Basophil pct 0.3 % eGFR Collection Time: 03/25/21 9:30 AM Result Value Ref Range eGFR 40 mL/min/1.73 m2 Urinalysis reflex to microscopic and culture Urine Collection Time: 03/25/21 9:38 AM Specimen: Urine Result Value Ref Range Color, ur Yellow Yellow Clarity, ur Clear Clear Specific gravity, ur 1.031 (H) 1.003 - 1.030 pH, urine 5.5 Protein, ur ql 1+ (A) Negative Glucose, ur ql 4+ (A) Negative Ketones, ur 4+ (A) Negative Bilirubin, ur Negative Negative Blood, ur Trace (A) Negative Urobilinogen, ur <2.0 <2.0 mg/dL Nitrite, ur Negative Negative Leukocyte esterase, ur Negative Negative UA reflex comment Reflex to microscopic UA will be performed. Drugs of Abuse Screen, Urine without Confirmation Collection Time: 03/25/21 9:38 AM Result Value Ref Range Amphetamine, ur [...] Not Detected CutOff 25 ng/mL Urine Creatinine 65 mg/dL hCG, urine, qualitative Collection Time: 03/25/21 9:38 AM Result Value Ref Range HCG, ur Negative Negative Urinalysis, microscopic only Collection Time: 03/25/21 9:38 AM Result Value Ref Range WBC, ur 0-5 0 - 5 /HPF RBC, ur 0-2 0 - 2 /HPF Bacteria, ur Trace (A) Culture Reflex Comment Reflex conditions for urine culture (WBC >10) not met. POCT glucose Collection Time: 03/25/21 9:51 AM Result Value Ref Range Glucose, POC 453 (Critical) 71 - 98 mg/dL POCT glucose Collection Time: 03/25/21 11:12 AM Result Value Ref Range Glucose, POC 422 (H) 71 - 98 mg/dL POCT glucose Collection Time: 03/25/21 12:13 PM Result Value Ref Range Glucose, POC 275 (H) 71 - 98 mg/dL Basic metabolic panel Collection Time: 03/25/21 12:52 PM Result Value Ref Range Sodium 146 (H) 135 - 145 mmol/L Potassium, pl 4.3 3.3 - 4.9 mmol/L Chloride 111 (H) 97 - 110 mmol/L CO2 10 (L) 22 - 32 mmol/L Anion gap 25 (H) 2 - 15 mmol/L BUN 45 (H) 8 - 25 mg/dL Creatinine 1.20 (H) 0.60 - 1.10 mg/dL Glucose 273 (H) 70 - 199 mg/dL Calcium 9.7 8.5 - 10.3 mg/dL eGFR Collection Time: 03/25/21 12:52 PM Result Value Ref Range eGFR 63 mL/min/1.73 m2 POCT glucose Collection Time: 03/25/21 1:18 PM Result Value Ref Range Glucose, POC 283 (H) 71 - 98 mg/dL POCT glucose Collection Time: 03/25/21 2:09 PM Result Value Ref Range Glucose, POC 215 (H) 71 - 98 mg/dL POCT glucose Collection Time: 03/25/21 3:01 PM Result Value Ref Range Glucose, POC 180 (H) 71 - 98 mg/dL No results found. Results for orders placed or performed during the hospital encounter of 03/29/18 ECG 12 lead Result Value Ref Range Patient age 22 years Interpretation Text SINUS TACHYCARDIABORDERLINE RIGHT AXIS DEVIATIONABNORMAL RHYTHM ECGPREVIOUS TRACIN03/30/2018 02.13 Ventricular Rate EKG/Min 108 /min P Wave Duration 109 ms QRS-Interval (MSEC) 77 ms OH-Interval (MSEC) 130 ms QT Interval 316 ms QTc 400 ms QTC Interval ms P [place] 72 deg QRS [place] 93 deg T [place] 44 deg Results for orders placed during the hospital encounter of 11/26/19 Transthoracic Echo Complete W Doppler/CF Narrative [place] [id number] Echocardiogram Report Patient Name: KARINA MENJIVAR : 1995 Study Date: 11/29/2019 10:15:58 AM Gender: F Tech: Location: [place] [address] Ref.Provider: ROBERTO CARLOS HELLER Height(Cm): 163 BSA: [...] CDT Problem List Principal Problem: Diabetic ketoacidosis with coma associated with type 1 diabetes mellitus (CMS/HCC) ([facility]) Assessment/Plan 25 y.o. female seen in consultation for diabetic ketoacidosis nausea vomit. PLAN: ICU admission observation GI protection prophylaxis DVT precautions Pulmonary toilet Intravenous crystalloid Insulin infusion Serial laboratory workup Thyroid adrenal assessment Nausea treatment Diabetic counseling Thanks for allowing us to see this patient we will follow in the ICU as needed. Critical Care Time: I have spent 70 minutes in full attendance with this critically ill patient making frequent reassessments and decisions regarding this patient's complex medical care. Critical care time was exclusive of separately billable procedures, treating other patients and teaching time. Dominic Camara MD 03/25/2021 3:40 PM ODITY TRADER documented in this encounter Nursing Notes * Eliane Brandt RN - 03/26/2021 1:23 PM CST The patient was a transfer from the ICU. Report received from MARY Bose. The patient reports no concerns at this time. She was orientated to the MCU and use of the call light. ODITY TRADER documented in this encounter ED Notes * Thai Zhu MD - 03/25/2021 9:02 AM CST HPI Chief Complaint Patient presents with ??? Vomiting ??? Hyperglycemia Patient is a 25-year-old woman with a history of type 1 diabetes complicated by gastroparesis and cannabis use who presents with nausea, vomiting, and altered mental status. Onset 2 days ago. Has notbeen taking insulin because not feeling well. History limited secondary to altered mental status. Patient History: Patient Active Problem List Diagnosis Date Noted ??? Altered mental status 03/04/2021 ??? Diabetic ketoacidosis with coma associated with type 1 diabetes mellitus (CMS/HCC) ([facility]) 11/16/2020 ??? Marijuana abuse 11/16/2020 ??? Currently in first trimester with unknown gestational age 1103/26/2020 ??? Intractable vomiting 03/13/2020 ??? Supervision of high-risk 03/06/2020 ??? T1DM in 03/06/2020 ??? Noncompliance with medication regimen 04/26/2019 ??? Diabetic ketoacidosis without coma associated with type 1 diabetes mellitus (CMS/HCC) ([facility]) 03/24/2019 ??? Tachycardia 03/24/2019 ??? Diabetic gastroparesis (CMS/HCC) ([facility]) 02/14/2019 ??? Depression 02/11/2019 ??? Cannabinoid hyperemesis syndrome 01/02/2018 Past Medical History: Diagnosis Date ??? Depression ??? Diabetes mellitus ([facility]) T1DM ??? HX OTHER MEDICAL 2011 Diabetes [...] Alcohol use: Not Currently ??? Drug use: Not Currently Types: Marijuana Social History Social History Narrative ??? Not on file Review of Systems Review of Systems Unable to perform ROS: Mental status change Physical Exam ED Triage Vitals [03/25/21 0902] Temp Pulse Resp BP SpO2 36.4 ??C (97.6 ??F) (!) 154 20 (!) 88/52 100 % Temp src Heart Rate Source Patient Position BP Location FiO2 (%) Temporal -- -- -- -- Physical Exam Vitals and nursing note reviewed. Constitutional: General: She is not in acute distress. Appearance: She is not ill-appearing or diaphoretic. HENT: Head: Normocephalic and atraumatic. Mouth/Throat: Mouth: Mucous membranes are moist. Eyes: General: No scleral icterus. Extraocular Movements: Extraocular movements intact. Cardiovascular: Rate and Rhythm: Normal rate and regular rhythm. Pulmonary: Effort: Pulmonary effort is normal. No respiratory distress. Abdominal: General: There is no distension. Palpations: Abdomen is soft. Tenderness: There is no abdominal tenderness. Musculoskeletal: General: No swelling. Normal range of motion. Cervical back: Normal range of motion. Skin: General: Skin is warm and dry. Findings: No rash. Neurological: General: No focal deficit present. Mental Status: She is alert. Comments: GCS E3 V2 M6 = 11 No focal deficits noted Psychiatric: Mood and Affect: Mood normal. Behavior: Behavior normal. [facility] Medical Decision Making Differential Diagnosis or Management Options: 25-year-old woman with history of type 1 diabetes complicated by gastroparesis and cannabis use who presents with nausea, vomiting, and altered mental status. Suspect DKA/HHS. Possible contribution from cannabis hyperemesis. Possible electrolyte abnormality. Doubt other emergent condition. Plan: Labs, IV fluids, insulin ED Course as of 03/25/21 1031 Time: 03/25 0950 Value: WBC(!): 17.6 Comment: Leukocytosis with neutrophilia, likely from profound dehydration rather than infectious source By: Thai Zhu MD Time: 03/25 951 Value: Ketones, ur(!): 4+ Comment: Consistent with suspected DKA By: Thai Zhu MD Time: 03/25 955 Value: Anion gap(!): 36 Comment: Elevated consistent with DKA By: Thai Zhu MD Final diagnoses: Diabetic ketoacidosis with coma associated with type 1 diabetes mellitus (CMS/HCC) (HCC) Thai Zhu MD 03/25/21 1031 ODITY TRADER * Lawanda Us RN - 03/25/2021 9:00 AM CST Patient presents to the ed with c.o. hyperglycemic and vomiting since Wednesday. Patient has history of gastro paresis. Patient has been vomiting since Wednesday and not eating or drinking other than ice chips. Boyfriend states patient also has not been taking insulin and blood sugar has been over 500. Patient is lethargic upon arrival to ed. ODITY TRADER ODITY TRADER documented in this encounter Miscellaneous Notes * Provider Query - Airam Small MD - 03/27/2021 12:[address] Small, Conflicting documentation is present in the medical record. Specify the appropriate diagnosis and document in the medical record and on the form below. ER and H&P state; Neurological: General: No focal deficit present. Mental Status: She is alert. Comments: GCS E3 V2 M6 = 11 No focal deficits noted Psychiatric: Mood and Affect: Mood normal. Behavior: Behavior normal. Date/Diagnosis/Physician: And Also; Diabetic ketoacidosis with coma associated with type 1 diabetes mellitus Please clarify if Coma was ruled in or ruled out. _X__ DKA with coma is correct ___ DKA without coma is correct ___ Other, specify below ___ Clinically unable to determine Additional Provider Response: Clinical Indicators/Treatments: Patient admitted with DM1 in DKA with altered mental status. Neuro and Psych reported as above. Diagnosis listed as DKA with Coma , please verify if the With Coma Portion of the DKA diagnosis was ruled in or ruled out. Use of terms such as likely, suspected, possible, or probable (associated with a specific diagnosisthat is being evaluated, monitored, or treated as if it exists) are acceptable and can be coded in the inpatient setting when documented at the time of discharge. This documentation will become part of the patient???s medical record. Sincerely, Austen Gaffney Health Information Management ODITY TRADER * Plan of Care - Cammie Bower RN - 03/27/2021 11:38 AM CST Problem: Health Behavior: Goal: Understanding of [...] and injury in home environment Outcome: Progressing Problem: Lack of Knowledge: Goal: Knowledge on safety and abstaining from self-injurious behavior will increase Outcome: Progressing Goal: Knowledge of therapies/resources will increase Outcome: Progressing Problem: Health Behavior: Goal: Ability to manage health-related needs will improve Outcome: Progressing Problem: Low Risk for Self-Injurious Behavior: Goal: Ability to remain free from injury will improve Description: (Low Risk) Outcome: Progressing Problem: Activity: Goal: Ability to avoid complications of mobility impairment will improve Outcome: Progressing Problem: Lack of Knowledge: Goal: Knowledge of the prescribed therapeutic regimen will improve Outcome: Progressing Goal: Ability to demonstrate proper wound care will improve Outcome: Progressing Problem: Health Behavior: Goal: Identification of resources available to assist in meeting health care needs will improve Outcome: Progressing Problem: Nutritional: Goal: Nutritional status will improve Outcome: Progressing Problem: Skin Integrity: Goal: Signs of wound healing will improve Outcome: Progressing Goal: Skin integrity will improve Outcome: Progressing Goal: Will show no evidence of further tissue damage Outcome: Progressing Problem: Activity: Goal: Mobility will improve Outcome: Progressing Problem: Lack of Knowledge: Goal: Understanding of ways to prevent future skin breakdown will improve Outcome: Progressing Goal: Ability to identify appropriate dietary choices will improve Outcome: Progressing Problem: Nutritional: Goal: Dietary intake will improve Outcome: Progressing Goal: Ability to maintain a balanced intake and output will improve Outcome: Progressing Problem: Skin Integrity: Goal: Risk for impaired skin integrity will decrease Outcome: Progressing Goal: Ability to demonstrate warm and dry skin will improve Outcome: Progressing Goal: Circulation will improve to fullest extent possible Outcome: Progressing Goals: Clinical Goals for the Shift: VSS. Free from falls/injuries. Summary: VSS. Free from falls/injuries this shift. All medications passed per ordered. Pt. Is beingdischarged to home via personal transportation. Discharge instructions and medications were reviewed with pt. Pt. Verbalized understanding. IV was pulled. ODITY TRADER * Plan of Care - Isaura Mederos RN - 03/27/2021 3:13 AM CST Goals: Clinical Goals for the Shift: vss. free from falls or injury. control blood glucose. Summary: VSS. A&O x4. Up ad cleve. Free from falls or injury. Medicated per orders. Blood glucosestable. No c/o pain. Will cont to monitor. ODITY TRADER * Plan of Care - Eliane Brandt RN - 03/26/2021 2:39 PM CST Problem: Health Behavior: Goal: Understanding [...] and injury in home environment Outcome: Progressing Problem: Lack of Knowledge: Goal: Knowledge on safety and abstaining from self-injurious behavior will increase Outcome: Progressing Goal: Knowledge of therapies/resources will increase Outcome: Progressing Problem: Health Behavior: Goal: Ability to manage health-related needs will improve Outcome: Progressing Problem: Low Risk for Self-Injurious Behavior: Goal: Ability to remain free from injury will improve Description: (Low Risk) Outcome: Progressing Problem: Activity: Goal: Ability to avoid complications of mobility impairment will improve Outcome: Progressing Problem: Lack of Knowledge: Goal: Knowledge of the prescribed therapeutic regimen will improve Outcome: Progressing Goal: Ability to demonstrate proper wound care will improve Outcome: Progressing Problem: Health Behavior: Goal: Identification of resources available to assist in meeting health care needs will improve Outcome: Progressing Problem: Nutritional: Goal: Nutritional status will improve Outcome: Progressing Problem: Skin Integrity: Goal: Signs of wound healing will improve Outcome: Progressing Goal: Skin integrity will improve Outcome: Progressing Goal: Will show no evidence of further tissue damage Outcome: Progressing Problem: Activity: Goal: Mobility will improve Outcome: Progressing Problem: Lack of Knowledge: Goal: Understanding of ways to prevent future skin breakdown will improve Outcome: Progressing Goal: Ability to identify appropriate dietary choices will improve Outcome: Progressing Problem: Nutritional: Goal: Dietary intake will improve Outcome: Progressing Goal: Ability to maintain a balanced intake and output will improve Outcome: Progressing Problem: Skin Integrity: Goal: Risk for impaired skin integrity will decrease Outcome: Progressing Goal: Ability to demonstrate warm and dry skin will improve Outcome: Progressing Goal: Circulation will improve to fullest extent possible Outcome: Progressing Goals: Clinical Goals for the Shift: VS/labs stable, free from injury, BG WDL Summary: The patient is A & O x 4, on room air, and has been cooperative to care. The patient'sBG remains WDL. The patient reports no concerns at this time. I will continue to monitor and treat the patient. ODITY TRADER * Plan of Care - Jed Parra RN - 03/26/2021 5:26 AM CST Problem: Safety: Goal: Will remain free from falls Outcome: Progressing Goal: Will remain free from injury from falls Outcome: Progressing Problem: Low Risk for Self-Injurious Behavior: Goal: Ability to remain free from injury will improve Description: (Low Risk) Outcome: Progressing Problem: Skin Integrity: Goal: Signs of wound healing will improve Outcome: Progressing Goal: Skin integrity will improve Outcome: Progressing Goal: Will show no evidence of further tissue damage Outcome: Progressing Problem: Skin Integrity: Goal: Circulation will improve to fullest extent possible Outcome: Progressing Problem: Health Behavior: Goal: Understanding of discharge needs will improve Outcome: Not Progressing Problem: Lack of Knowledge: Goal: Ability to state ways to decrease the risk of falls will improve Outcome: Not Progressing Problem: Safety: Goal: Will remain free from falls and injury in home environment Outcome: Not Progressing Problem: Lack of Knowledge: Goal: Knowledge on safety and abstaining from self-injurious behavior will increase Outcome: Not Progressing Goal: Knowledge of therapies/resources will increase Outcome: Not Progressing Problem: Health Behavior: Goal: Ability to manage health-related needs will improve Outcome: Not Progressing Problem: Activity: Goal: Ability to avoid complications of mobility impairment will improve Outcome: Not Progressing Problem: Lack of Knowledge: Goal: Knowledge of the prescribed therapeutic regimen will improve Outcome: Not Progressing Goal: Ability to demonstrate proper wound care will improve Outcome: Not Progressing Problem: Health Behavior: Goal: Identification of resources available to assist in meeting health care needs will improve Outcome: Not Progressing Problem: Nutritional: Goal: Nutritional status will improve Outcome: Not Progressing Problem: Activity: Goal: Mobility will improve Outcome: Not Progressing Problem: Lack of Knowledge: Goal: Understanding of ways to prevent future skin breakdown will improve Outcome: Not Progressing Goal: Ability to identify appropriate dietary choices will improve Outcome: Not Progressing Problem: Nutritional: Goal: Dietary intake will improve Outcome: Not Progressing Goal: Ability to maintain a balanced intake and output will improve Outcome: Not Progressing Problem: Skin Integrity: Goal: Ability to demonstrate warm and dry skin will improve Outcome: Not Progressing Goals: Clinical Goals for the Shift: Stablize BS, Improve mental status, Monitor labs, provide comfort andsafety Summary: Pt VS and labs stable during shift, gap closed and CO2 normal, remains on glucostabilizer,pt incontinent during shift, following some commands and is becoming more alert. ODITY TRADER * Plan of Care - Shamika Cano RN - 03/25/2021 3:14 PM CST Goals: Clinical Goals for the Shift: Improve blood sugars, stable VS, imrpved mentation, and maintain comfort and safety Summary: Patient admitted from the ER with BG in the 600s and her anion gap of 36. Patient is drowsy but follows intermittent commands. MD was made aware of her heart rate being elevated in the 160s,MD placed orders for albumin and an EKG. Patient's heart rate decreased to the 140s. Patient's lungs are clear. She was complaining of nausea when she arrived in the ER but she has not complained of any nausea since she has been here. The patient does have slight abdominal tenderness. Problem: Health Behavior: Goal: Understanding of discharge [...] and injury in home environment Outcome: Progressing Problem: Lack of Knowledge: Goal: Knowledge on safety and abstaining from self-injurious behavior will increase Outcome: Progressing Goal: Knowledge of therapies/resources will increase Outcome: Progressing Problem: Health Behavior: Goal: Ability to manage health-related needs will improve Outcome: Progressing Problem: Low Risk for Self-Injurious Behavior: Goal: Ability to remain free from injury will improve Description: (Low Risk) Outcome: Progressing Problem: Activity: Goal: Ability to avoid complications of mobility impairment will improve Outcome: Progressing Problem: Lack of Knowledge: Goal: Knowledge of the prescribed therapeutic regimen will improve Outcome: Progressing Goal: Ability to demonstrate proper wound care will improve Outcome: Progressing Problem: Health Behavior: Goal: Identification of resources available to assist in meeting health care needs will improve Outcome: Progressing Problem: Nutritional: Goal: Nutritional status will improve Outcome: Progressing Problem: Skin Integrity: Goal: Signs of wound healing will improve Outcome: Progressing Goal: Skin integrity will improve Outcome: Progressing Goal: Will show no evidence of further tissue damage Outcome: Progressing Problem: Activity: Goal: Mobility will improve Outcome: Progressing Problem: Lack of Knowledge: Goal: Understanding of ways to prevent future skin breakdown will improve Outcome: Progressing Goal: Ability to identify appropriate dietary choices will improve Outcome: Progressing Problem: Nutritional: Goal: Dietary intake will improve Outcome: Progressing Goal: Ability to maintain a balanced intake and output will improve Outcome: Progressing Problem: Skin Integrity: Goal: Risk for impaired skin integrity will decrease Outcome: Progressing Goal: Ability to demonstrate warm and dry skin will improve Outcome: Progressing Goal: Circulation will improve to fullest extent possible Outcome: Progressing ODITY TRADER * ED Procedure Note - Thai Zhu MD - 03/25/2021 10:31 AM COMMODITY TRADER Associated Order(s): Critical Care Procedure Critical Care Performed by: Thai Zhu MD Authorized by: Thai Zhu MD Critical care provider statement: As reflected in the history, physical exam, orders, notes, and/or MDM, I was personally present while the patient was critically ill and provided critical care services for approximately 31 minutes, excluding time involved in separately billable procedures. Critical care was necessary to treat or prevent imminent or life-threatening deterioration of the following condition(s): encephalopathy acid-base disturbance, diabetic ketoacidosis, acute electrolyte derangement and dehydration Critical care was time spent by me providing the following: continuous telemetry, continuous pulse oximetry, interpretation of bedside monitors, imaging, and arterial/venous lab draws, serial bedside patient exams, serial laboratory checks and resuscitation with fluids frequent neurologic exams glycemic control I provided emergent necessary critical [...] and discussed management with the admitting team. Thai Zhu MD 03/25/21 1032 ODITY TRADER documented in this encounter Plan of Treatment Not on file documented as of this encounter Procedures Procedure Name Priority Date/Time Associated Diagnosis Comments POCT GLUCOSE DEVICE Routine 03/27/2021 7 :53 AM COMMODITY TRADER EGFR Routine 03/27/2021 6:24 AM COMMODITY TRADER DIFFERENTIAL AUTO Routine 03/27/2021 6:2 4 AM COMMODITY TRADER CBC WITH AUTO DIFFERENTIAL Routine 03/27/2021 6:24 AM COMMODITY TRADER COMPREHENSIVE METABOLIC PANEL Routine 03/27/2021 6:24 AM COMMODITY TRADER POCT GLUCOSE DEVICE Routine 03/27/2021 2 :23 AM COMMODITY TRADER POCT GLUCOSE DEVICE Routine 03/26/2021 8 :31 PM COMMODITY TRADER POCT GLUCOSE DEVICE Routine 03/26/2021 6 :35 PM COMMODITY TRADER POCT GLUCOSE DEVICE Routine 03/26/2021 5 :32 PM COMMODITY TRADER POCT GLUCOSE DEVICE Routine 03/26/2021 4:58 PM COMMODITY TRADER POCT GLUCOSE DEVICE Routine 03/26/2021 1 1:41 AM COMMODITY TRADER POCT GLUCOSE DEVICE Routine 03/26/2021 8 :35 AM COMMODITY TRADER EGFR Routine 03/26/2021 8:00 AM COMMODITY TRADER BASIC METABOLIC PANEL Routine 03/26/2021 8:00 AM COMMODITY TRADER POCT GLUCOSE DEVICE Routine 03/26/2021 7 :41 AM COMMODITY TRADER POCT GLUCOSE DEVICE Routine 03/26/2021 6 :42 AM COMMODITY TRADER POCT GLUCOSE DEVICE Routine 03/26/2021 5 :46 AM COMMODITY TRADER POCT GLUCOSE DEVICE Routine 03/26/2021 4 :47 AM COMMODITY TRADER POCT GLUCOSE DEVICE Routine 03/26/2021 3 :46 AM COMMODITY TRADER POCT GLUCOSE DEVICE Routine 03/26/2021 2 :42 AM COMMODITY TRADER POCT GLUCOSE DEVICE Routine 03/26/2021 1 :50 AM COMMODITY TRADER POCT GLUCOSE DEVICE Routine 03/26/2021 1 2:47 AM COMMODITY TRADER EGFR Routine 03/26/2021 12:22 AM COMMODITY TRADER COMPREHENSIVE METABOLIC PANEL Routine 03/26/2021 12:22 AM COMMODITY TRADER POCT GLUCOSE DEVICE Routine 03/25/2021 1 1:46 PM COMMODITY TRADER POCT GLUCOSE DEVICE Routine 03/25/2021 1 0:44 PM COMMODITY TRADER POCT GLUCOSE DEVICE Routine 03/25/2021 9 :52 PM COMMODITY TRADER POCT GLUCOSE DEVICE Routine 03/25/2021 8 :49 PM COMMODITY TRADER EGFR Timed 03/25/2021 8:26 PM COMMODITY TRADER DIFFERENTIAL AUTO Routine 03/25/2021 8:2 6 PM COMMODITY TRADER CBC WITH AUTO DIFFERENTIAL Routine 03/25/2021 8:26 PM COMMODITY TRADER CORTISOL Routine 03/25/2021 8:26 PM COMMODITY TRADER BASIC METABOLIC PANEL Timed 03/25/2021 8:26 PM COMMODITY TRADER POCT GLUCOSE DEVICE Routine 03/25/2021 7 :48 PM COMMODITY TRADER POCT GLUCOSE DEVICE Routine 03/25/2021 7 :00 PM COMMODITY TRADER POCT GLUCOSE DEVICE Routine 03/25/2021 6 :02 PM COMMODITY TRADER POCT GLUCOSE DEVICE Routine 03/25/2021 4 :59 PM COMMODITY TRADER POCT GLUCOSE DEVICE Routine 03/25/2021 3 :59 PM COMMODITY TRADER POCT GLUCOSE DEVICE Routine 03/25/2021 3 :01 PM COMMODITY TRADER ECG 12-LEAD Routine 03/25/2021 2:43 PM COMMODITY TRADER Tachycardia POCT GLUCOSE DEVICE Routine 03/25/2021 2 :09 PM COMMODITY TRADER POCT GLUCOSE DEVICE Routine 03/25/2021 1 :18 PM COMMODITY TRADER EGFR STAT 03/25/2021 12:52 PM COMMODITY TRADER BASIC METABOLIC PANEL STAT 03/25/2021 12:52 PM COMMODITY TRADER POCT GLUCOSE DEVICE Routine 03/25/2021 1 2:13 PM COMMODITY TRADER POCT GLUCOSE DEVICE Routine 03/25/2021 1 1:12 AM COMMODITY TRADER OH CRITICAL CARE ILL/INJURED PATIENT INIT 30-74 MIN Routine 03/25/2021 10:31 AM COMMODITY TRADER POCT GLUCOSE DEVICE Routine 03/25/2021 9 :51 AM COMMODITY TRADER URINALYSIS AND REFLEX TO MICROSCOPIC AND CULTURE STAT 03/25/2021 9:38 AM COMMODITY TRADER DRUGS OF ABUSE SCREEN, URINE WITHOUT CONFIRMATION STAT 03/25/2021 9:38 AM COMMODITY TRADER HCG, URINE, QUALITATIVE STAT 03/25/2021 9:38 AM COMMODITY TRADER URINALYSIS, MICROSCOPIC ONLY STAT 03/25/2021 9:38 AM COMMODITY TRADER EGFR STAT 03/25/2021 9:30 AM COMMODITY TRADER DIFFERENTIAL AUTO STAT 03/25/2021 9:3 0 AM COMMODITY TRADER BETA-HYDROXYBUTYRATE STAT 03/25/2021 9:30 AM COMMODITY TRADER CBC WITH AUTO DIFFERENTIAL STAT 03/25/2021 9:30 AM COMMODITY TRADER COMPREHENSIVE METABOLIC PANEL STAT 03/25/2021 9:30 AM COMMODITY TRADER documented in this encounter Results * (ABNORMAL) POCT glucose (03/27/2021 7:53 AM COMMODITY TRADER) [facility] Glucose, POC 194(H) 71 - 98 mg/dL [facility] ([place]) Blood 03/27/2021 7:53 AM COMMODITY TRADER 03/27/2021 7:53 AM COMMODITY TRADER us Airam Small MD LAB POCT ORDERABLES - DEVICE Fi nal Result TOMY [facility] ([place]) 1 [facility] [place] [place] [address] * eGFR (03/27/2021 6:24 AM COMMODITY TRADER) eGFR 154 mL/min/1.7 3 m2 OTMY SAHU ([place]) Comment: Interpretive Data Reference Interval Normal ?>/= 90 mL/min/1.73m2 Mildly decreased* ? 60 - 89 mL/min/1.73m2 Mildly to moderately decreased ?45 - 59 mL/min/1.73m2 Moderately to severely decreased ??30 - 44 mL/min/1.73m2 Severely decreased ?15 - 29 mL/min/1.73m2 Kidney Failure ?< 15 ??mL/min/1.73m2 *Relative to young adult level Estimated glomerular filtration rate is determined by the CKD-EPI equation recommended by the National Kidney Foundation (KDIGO 2012 Clinical Practice Guideline for the Evaluation and Management of Chronic Kidney Disease. Kidney Intnl Suppl May 2012;3:1). The CKD-EPI equation should not be used for patients with unstable renal function and has not been validated in children and those over 70. Current interpretive data was last reviewed 2020 Blood 03/27/2021 6:24 AM COMMODITY TRADER 03/27/2021 6:44 AM COMMODITY TRADER us Dominic Camara MD LAB BLOOD ORDERABLES Final Resu lt TOMY SAHU ([place]) 1 [facility] Department [place] [address] * (ABNORMAL) Differential, auto (03/27/2021 6:24 AM COMMODITY TRADER) Neutrophil abs 1.6(L) 1.7 - 6.5 K/cumm [facility] ([place]) Imm gran abs 0.0 0.0 - 0.1 K/cumm [facility] ([place]) Lymphocyte abs 2.0 0.8 - 3.3 K/cumm [facility] ([place]) Monocyte abs 0.4 0.2 - 0.8 K/cumm [facility] ([place]) Eosinophil abs 0.0 0.0 - 0.5 K/cumm [facility] ([place]) Basophil abs 0.0 0.0 - 0.1 K/cumm [facility] ([place]) Neutrophil pct 38.5 % [facility] ([place]) Comment: Interpretive [...] was last revised on 2017. Lymphocyte pct 49.8 % [facility] ([place]) Comment: Interpretive Data Percent cell count reference ranges are not reported, since discordance with absolute values may lead to misinterpretation of CBC data. Current Interpretive Data was last revised on 2017. Monocyte pct 10.5 % [facility] ([place]) Comment: Interpretive Data Percent cell count reference ranges are not reported, since discordance with absolute values may lead to misinterpretation of CBC data. Current Interpretive Data was last revised on 2017. Eosinophil pct 0.5 % [facility] ([place]) Comment: Interpretive [...] Data was last revised on 2017. Blood 03/27/2021 6:24 AM COMMODITY TRADER 03/27/2021 6:44 AM COMMODITY TRADER us Dominic Camara MD LAB BLOOD ORDERABLES Final Resu lt [facility] ([place]) 1 [facility] Department [place] [address] * (ABNORMAL) Comprehensive metabolic panel (03/27/2021 6:24 AM COMMODITY TRADER) Sodium 141 135 - 145 mmol/L [facility] ([place]) Potassium, pl 3.3 3.3 - 4.9 mmol/L [facility] ([place]) Chloride 103 97 - 110 mmol/L [facility] ([place]) CO2 31 22 - 32 mmol/L [facility] ([place]) Anion gap 8 2 - 15 mmol/L [facility] ([place]) BUN 19 8 - 25 mg/dL [facility] ([place]) Creatinine 0.34(L) 0.60 - 1.10 mg/dL [facility] ([place]) Glucose 182 70 - 199 mg/dL [facility] ([place]) [...] interpretive data was last revised 2017. Calcium 8.6 8.5 - 10.3 mg/dL [facility] ([place]) Bilirubin, total 0.5 0.1 - 1.2 mg/dL [facility] ([place]) Protein, pl 5.9(L) 6.5 - 8.5 g/dL [facility] ([place]) Albumin 3.6 3.5 - 5.0 g/dL [facility] ([place]) Alk phos 68 40 - 130 Units/L [facility] ([place]) ALT 25 7 - 45 Units/L [facility] ([place]) AST 25 10 - 45 Units/L [facility] ([place]) Blood 03/27/2021 6:24 AM COMMODITY TRADER 03/27/2021 6:44 AM COMMODITY TRADER Dominic Camara MD LAB BLOOD ORDERABLES Final Resu lt [facility] ([place]) 1 [facility] Department [place] [address] * (ABNORMAL) CBC with auto differential (03/27/2021 6:24 AM COMMODITY TRADER) WBC 4.1 3.8 - 9.9 K/cumm [facility] ([place]) Hgb 10.5(L) 11.9 - 15.5 g/dL [facility] ([place]) Hct 33.0(L) 35.6 - 45.5 % [facility] ([place]) Plt 281 150 - 400 K/cumm [facility] ([place]) MPV 9.3 9.1 - 12.3 fL [facility] ([place]) RBC 3.97 3.90 - 5.20 M/cumm [facility] ([place]) MCV 83.1 81.3 - 96.4 fL [facility] ([place]) MCH 26.4(L) 27.1 - 33.3 pg [facility] ([place]) MCHC 31.8(L) 32.3 - 35.7 g/dL [facility] ([place]) RDW CV 16.4(H) 11.1 - 14.9 % [facility] ([place]) RDW SD 49.9(H) 35.7 - 48.1 fL [facility] ([place]) NRBC abs 0.00 0.00 - 0.01 K/cumm [facility] ([place]) Blood 03/27/2021 6:24 AM COMMODITY TRADER 03/27/2021 6:44 AM COMMODITY TRADER Dominic Camara MD LAB BLOOD ORDERABLES Final Resu lt Performing Organization Address City/[facility]/ZIP Co de Phone Number TOMY SAHU (VASHTI) 1 [facility] [place] [address] * (ABNORMAL) POCT glucose (03/27/2021 2:23 AM COMMODITY TRADER) Glucose, POC 119(H) 71 - 98 mg/dL [facility] ([place]) Blood 03/27/2021 2:23 AM COMMODITY TRADER 03/27/2021 2:23 AM COMMODITY TRADER us Airam Small MD LAB POCT ORDERABLES - DEVICE Fi nal Result Performing Organization Address City/[facility]/ZIP Co de Phone Number TOMY SAHU (VASHTI) 1 [facility] [place] [address] * (ABNORMAL) POCT glucose (03/26/2021 8:31 PM COMMODITY TRADER) Glucose, POC 268(H) 71 - 98 mg/dL TOMY SAHU ([place]) Blood 03/26/2021 8:31 PM COMMODITY TRADER 03/26/2021 8:31 PM COMMODITY TRADER us Airam Small MD LAB POCT ORDERABLES - DEVICE Fi nal Result Performing Organization Address [facility]/ZIP Co de Phone Number TOMY SAHU (VASHTI) 1 [facility] [place] [address] * (ABNORMAL) POCT glucose (03/26/2021 6:35 PM COMMODITY TRADER) Glucose, POC 184(H) 71 - 98 mg/dL TOMY SAHU ([place]) Blood 03/26/2021 6:35 PM COMMODITY TRADER 03/26/2021 6:35 PM COMMODITY TRADER Airam Small MD LAB POCT ORDERABLES - DEVICE Fi nal Result TOMY SAHU (V[place]HTI) 1 [facility] [place] [address] * (ABNORMAL) POCT glucose (03/26/2021 5:32 PM COMMODITY TRADER) Glucose, POC 99(H) 71 - 98 mg/dL [facility] ([place]) Blood 03/26/2021 5:32 PM COMMODITY TRADER 03/26/2021 5:32 PM COMMODITY TRADER Airam Small MD LAB POCT ORDERABLES - DEVICE Fi nal Result [facility] ([place]) 1 [facility] [address] * (ABNORMAL) POCT glucose (03/26/2021 4:58 PM COMMODITY TRADER) Glucose, POC 50(C) 71 - 98 mg/dL [facility] ([place]) Comment:Glu2: RN/MD Notified Blood 03/26/2021 4:58 PM COMMODITY TRADER 03/26/2021 4:58 PM COMMODITY TRADER Airam Small MD LAB POCT ORDERABLES - DEVICE Fi nal Result Performing Organization Address City/[facility]/ZIP Co de Phone Number [facility] ([place]) [address] [place] [address] [place] [address] * (ABNORMAL) POCT glucose (03/26/2021 11:41 AM COMMODITY TRADER) Glucose, POC 126(H) 71 - 98 mg/dL [facility] ([place]) Blood 03/26/2021 11:4 1 AM COMMODITY TRADER 03/26/2021 11:41 AM COMMODITY TRADER Airam Small MD LAB POCT ORDERABLES - DEVICE Fi nal Result Performing Organization Address City/[facility] Co de Phone Number [facility] ([place]) 1 [facility] [place] [address] * (ABNORMAL) POCT glucose (03/26/2021 8:35 AM COMMODITY TRADER) Glucose, POC 175(H) 71 - 98 mg/dL TOMY [facility] ([place]) Blood 03/26/2021 8:35 AM COMMODITY TRADER 03/26/2021 8:35 AM COMMODITY TRADER us Airam Small MD LAB POCT ORDERABLES - DEVICE Fi nal Result Performing Organization Address City/State/[facility] Co de Phone Number TOMY [facility] ([place]) 1 [facility] Department [place] [address] * eGFR (03/26/2021 8:00 AM COMMODITY TRADER) [facility] eGFR 129 mL/min/1.7 3 m2 TOMY [facility] ([place]) Comment: Interpretive Data Reference Interval Normal ?>/= 90 mL/min/1.73m2 Mildly decreased* ? 60 - 89 mL/min/1.73m2 Mildly to moderately decreased ?45 - 59 mL/min/1.73m2 Moderately to severely decreased ??30 - 44 mL/min/1.73m2 Severely decreased ?15 - 29 mL/min/1.73m2 Kidney Failure ?< 15 ??mL/min/1.73m2 *Relative to young adult level Estimated glomerular filtration rate is determined by the CKD-EPI equation recommended by the National Kidney Foundation (KDIGO 2012 Clinical Practice Guideline for the Evaluation and Management of Chronic Kidney Disease. Kidney Intnl Suppl May 2012;3:1). The CKD-EPI equation should not be used for patients with unstable renal function and has not been validated in children and those over 70. Current interpretive data was last reviewed 2020 Blood 03/26/2021 8:00 AM COMMODITY TRADER 03/26/2021 8:21 AM COMMODITY TRADER us Dominic Camara MD LAB BLOOD ORDERABLES Final Resu lt TOMY SAHU ([place]I) 1 [facility] Department [place] [address] * (ABNORMAL) Basic metabolic panel (03/26/2021 8:00 AM COMMODITY TRADER) Sodium 142 135 - 145 mmol/L [facility] ([place]) Potassium, pl 3.7 3.3 - 4.9 mmol/L [facility] ([place]) Chloride 107 97 - 110 mmol/L [facility] ([place]) CO2 22 22 - 32 mmol/L [facility] ([place]) Anion gap 13 2 - 15 mmol/L [facility] ([place]) BUN 32(H) 8 - 25 mg/dL [facility] ([place]) Creatinine 0.58(L) 0.60 - 1.10 mg/dL [facility] ([place]) Glucose 223(H) 70 - 199 mg/dL [facility] ([place]) [...] 2017. Calcium 9.6 8.5 - 10.3 mg/dL [facility] ([place]) Blood 03/26/2021 8:00 AM COMMODITY TRADER 03/26/2021 8:21 AM COMMODITY TRADER us Dominic Camara MD LAB BLOOD ORDERABLES Final Resu lt TOMY SAHU ([place]) 1 [facility] Department [place] [address] * (ABNORMAL) POCT glucose (03/26/2021 7:41 AM COMMODITY TRADER) Glucose, POC 204(H) 71 - 98 mg/dL [facility] ([place]) Blood 03/26/2021 7:41 AM COMMODITY TRADER 03/26/2021 7:41 AM COMMODITY TRADER us Dominic Camara MD LAB POCT ORDERABLES - DEVICE Fi nal Result Performing Organization Address [facility]/ZIP Co de Phone Number TOMY SAHU (V[place]HTI) 1 [facility] [place] [address] * (ABNORMAL) POCT glucose (03/26/2021 6:42 AM COMMODITY TRADER) Glucose, POC 153(H) 71 - 98 mg/dL [facility] ([place]) Blood 03/26/2021 6:42 AM COMMODITY TRADER 03/26/2021 6:42 AM COMMODITY TRADER us Dominic Camara MD LAB POCT ORDERABLES - DEVICE Fi nal Result Performing Organization Address [facility] Co de Phone Number TOMY SAHU (VASHTI) 1 [facility] [place] [address] * (ABNORMAL) POCT glucose (03/26/2021 5:46 AM COMMODITY TRADER) Glucose, POC 134(H) 71 - 98 mg/dL TOMY SAHU ([place]) Blood 03/26/2021 5:46 AM COMMODITY TRADER 03/26/2021 5:46 AM COMMODITY TRADER us Dominic Camara MD LAB POCT ORDERABLES - DEVICE Fi nal Result Performing Organization Address City/[facility]/ZIP Co de Phone Number TOMY SAHU (V[place]HTI) 1 [facility] [place] [address] * (ABNORMAL) POCT glucose (03/26/2021 4:47 AM COMMODITY TRADER) Glucose, POC 121(H) 71 - 98 mg/dL TOMY SAHU ([place]) Blood 03/26/2021 4:47 AM COMMODITY TRADER 03/26/2021 4:47 AM COMMODITY TRADER us Dominic Camara MD LAB POCT ORDERABLES - DEVICE Fi nal Result TOMY SAHU ([place]) 1 [facility] [place] [address] * (ABNORMAL) POCT glucose (03/26/2021 3:46 AM COMMODITY TRADER) Glucose, POC 122(H) 71 - 98 mg/dL TOMY SAHU ([place]) Blood 03/26/2021 3:46 AM COMMODITY TRADER 03/26/2021 3:46 AM COMMODITY TRADER us Dominic Camara MD LAB POCT ORDERABLES - DEVICE Fi nal Result Performing Organization Address [facility] Co de Phone Number TOMY SAHU ([place]) 1 [facility] [place] [address] * (ABNORMAL) POCT glucose (03/26/2021 2:42 AM COMMODITY TRADER) Glucose, POC 142(H) 71 - 98 mg/dL TOMY SAHU ([place]) Blood 03/26/2021 2:42 AM COMMODITY TRADER 03/26/2021 2:42 AM COMMODITY TRADER us Dominic Camara MD LAB POCT ORDERABLES - DEVICE Fi nal Result Performing Organization Address [facility] Co de Phone Number TOMY SAHU ([place]) 1 [facility] [place] [address] * (ABNORMAL) POCT glucose (03/26/2021 1:50 AM COMMODITY TRADER) Glucose, POC 168(H) 71 - 98 mg/dL TOMY SAHU ([place]) Blood 03/26/2021 1:50 AM COMMODITY TRADER 03/26/2021 1:50 AM COMMODITY TRADER us Dominic Camara MD LAB POCT ORDERABLES - DEVICE Fi nal Result Performing Organization Address City/[facility]/ZIP Co de Phone Number TOMY SAHU (VASHTI) 1 [facility] Department [place] [address] * (ABNORMAL) POCT glucose (03/26/2021 12:47 AM COMMODITY TRADER) Glucose, POC 201(H) 71 - 98 mg/dL TOMY SAHU ([place]HTI) Blood 03/26/2021 12:4 7 AM COMMODITY TRADER 03/26/2021 12:47 AM COMMODITY TRADER us Dominic Camara MD LAB POCT ORDERABLES - DEVICE Fi nal Result Performing Organization Address [facility] Co de Phone Number TOMY SAHU (VASHTI) 1 [facility] Department [place] [address] * eGFR (03/26/2021 12:22 AM COMMODITY TRADER) Pathologist [facility] eGFR 100 mL/min/1.7 3 m2 TOMY SAHU (VASHTI) Comment: Interpretive Data Reference Interval Normal ?>/= 90 mL/min/1.73m2 Mildly decreased* ? 60 - 89 mL/min/1.73m2 Mildly to moderately decreased ?45 - 59 mL/min/1.73m2 Moderately to severely decreased ??30 - 44 mL/min/1.73m2 Severely decreased ?15 - 29 mL/min/1.73m2 Kidney Failure ?< 15 ??mL/min/1.73m2 *Relative to young adult level Estimated glomerular filtration rate is determined by the CKD-EPI equation recommended by the National Kidney Foundation (KDIGO 2012 Clinical Practice Guideline for the Evaluation and Management of Chronic Kidney Disease. Kidney Intnl Suppl May 2012;3:1). The CKD-EPI equation should not be used for patients with unstable renal function and has not been validated in children and those over 70. Current interpretive data was last reviewed 2020 Blood 03/26/2021 12:2 2 AM COMMODITY TRADER 03/26/2021 12:45 AM COMMODITY TRADER us Dominic Camara MD LAB BLOOD ORDERABLES Final Resu lt [facility] ([place]) 1 [facility] Department [place] [address] * (ABNORMAL) Comprehensive metabolic panel (03/26/2021 12:22 AM COMMODITY TRADER) Sodium 146(H) 135 - 145 mmol/L [facility] ([place]) Potassium, pl 3.9 3.3 - 4.9 mmol/L [facility] ([place]) Chloride 112(H) 97 - 110 mmol/L [facility] ([place]) CO2 21(L) 22 - 32 mmol/L [facility] ([place]) Anion gap 13 2 - 15 mmol/L [facility] ([place]) BUN 39(H) 8 - 25 mg/dL [facility] ([place]) Creatinine 0.82 0.60 - 1.10 mg/dL [facility] ([place]) Glucose 233(H) 70 - 199 mg/dL [facility] ([place]) [...] interpretive data was last revised 2017. Calcium 9.7 8.5 - 10.3 mg/dL [facility] ([place]) Bilirubin, total 1.0 0.1 - 1.2 mg/dL [facility] ([place]) Protein, pl 6.7 6.5 - 8.5 g/dL [facility] ([place]) Albumin 4.1 3.5 - 5.0 g/dL [facility] ([place]) Alk phos 84 40 - 130 Units/L [facility] ([place]) ALT 20 7 - 45 Units/L [facility] ([place]) AST 10 10 - 45 Units/L [facility] ([place]) Blood 03/26/2021 12:2 2 AM COMMODITY TRADER 03/26/2021 12:45 AM COMMODITY TRADER us Dominic Camara MD LAB BLOOD ORDERABLES Final Resu lt TOMY SAHU ([place]) 1 [facility] [place] [address] * (ABNORMAL) POCT glucose (03/25/2021 11:46 PM COMMODITY TRADER) Glucose, POC 225(H) 71 - 98 mg/dL TOMY SAHU ([place]) Blood 03/25/2021 11:4 6 PM COMMODITY TRADER 03/25/2021 11:46 PM COMMODITY TRADER us Dominic Camara MD LAB POCT ORDERABLES - DEVICE Fi nal Result Performing Organization Address [facility] Co de Phone Number TOMY SAHU ([place]) 1 [facility] [place] [address] * (ABNORMAL) POCT glucose (03/25/2021 10:44 PM COMMODITY TRADER) Glucose, POC 193(H) 71 - 98 mg/dL TOMY SAHU ([place]) Blood 03/25/2021 10:4 4 PM COMMODITY TRADER 03/25/2021 10:44 PM COMMODITY TRADER us Doimnic Camara MD LAB POCT ORDERABLES - DEVICE Fi nal Result Performing Organization Address City/[facility] Co de Phone Number TOMY SAHU ([place]) 1 [facility] [place] [address] * (ABNORMAL) POCT glucose (03/25/2021 9:52 PM COMMODITY TRADER) Glucose, POC 159(H) 71 - 98 mg/dL [facility] ([place]) Blood 03/25/2021 9:52 PM COMMODITY TRADER 03/25/2021 9:52 PM COMMODITY TRADER us Dominic Camara MD LAB POCT ORDERABLES - DEVICE Fi nal Result Performing Organization Address [facility]/ZIP Co de Phone Number [facility] ([place]) 1 [facility] [place] [address] * (ABNORMAL) POCT glucose (03/25/2021 8:49 PM COMMODITY TRADER) Pathologist [facility] Glucose, POC 116(H) 71 - 98 mg/dL [facility] ([place]) Blood 03/25/2021 8:49 PM COMMODITY TRADER 03/25/2021 8:49 PM COMMODITY TRADER Dominic Camara MD LAB POCT ORDERABLES - DEVICE Fi nal Result Performing Organization Address [facility] Co de Phone Number [facility] ([place]) 1 [facility] [place] [address] * eGFR (03/25/2021 8:26 PM COMMODITY TRADER) [facility] eGFR 99 mL/min/1.7 3 m2 [facility] ([place]) Comment: Interpretive Data Reference Interval Normal ?>/= 90 mL/min/1.73m2 Mildly decreased* ? 60 - 89 mL/min/1.73m2 Mildly to moderately decreased ?45 - 59 mL/min/1.73m2 Moderately to severely decreased ??30 - 44 mL/min/1.73m2 Severely decreased ?15 - 29 mL/min/1.73m2 Kidney Failure ?< 15 ??mL/min/1.73m2 *Relative to young adult level Estimated glomerular filtration rate is determined by the CKD-EPI equation recommended by the National Kidney Foundation (KDIGO 2012 Clinical Practice Guideline for the Evaluation and Management of Chronic Kidney Disease. Kidney Intnl Suppl May 2012;3:1). The CKD-EPI equation should not be used for patients with unstable renal function and has not been validated in children and those over 70. Current interpretive data was last reviewed 2020 Blood 03/25/2021 8:26 PM COMMODITY TRADER 03/25/2021 8:32 PM COMMODITY TRADER us Dominic Camara MD LAB BLOOD ORDERABLES Final Resu lt TOMY SAHU ([place]) 1 [facility] Department [place] [address] * (ABNORMAL) Differential, auto (03/25/2021 8:26 PM COMMODITY TRADER) Neutrophil abs 7.6(H) 1.7 - 6.5 K/cumm [facility] ([place]) Imm gran abs 0.1 0.0 - 0.1 K/cumm [facility] ([place]) Lymphocyte abs 2.5 0.8 - 3.3 K/cumm [facility] ([place]) Monocyte abs 2.2(H) 0.2 - 0.8 K/cumm [facility] ([place]) Eosinophil abs 0.0 0.0 - 0.5 K/cumm [facility] ([place]) Basophil abs 0.0 0.0 - 0.1 K/cumm [facility] ([place]) Neutrophil pct 61.2 % [facility] ([place]) Comment: Interpretive [...] was last revised on 2017. Lymphocyte pct 20.2 % [facility] ([place]) Comment: Interpretive Data Percent cell count reference ranges are not reported, since discordance with absolute values may lead to misinterpretation of CBC data. Current Interpretive Data was last revised on 2017. Monocyte pct 17.7 % [facility] ([place]) Comment: Interpretive Data [...] Data was last revised on 2017. Blood 03/25/2021 8:26 PM COMMODITY TRADER 03/25/2021 8:32 PM COMMODITY TRADER us Dominic Camara MD LAB BLOOD ORDERABLES Final Resu lt [facility]OMY [facility] ([place]) 1 [facility] Department of Laboratories [place], [place] [id number] * (ABNORMAL) CBC with auto differential (03/25/2021 8:26 PM COMMODITY TRADER) WBC 12.3(H) 3.8 - 9.9 K/cumm [facility] ([place]) Hgb 10.5(L) 11.9 - 15.5 g/dL [facility] ([place]) Hct 33.3(L) 35.6 - 45.5 % [facility] ([place]) Plt 401(H) 150 - 400 K/cumm [facility] ([place]) MPV 9.1 9.1 - 12.3 fL [facility] ([place]) RBC 3.92 3.90 - 5.20 M/cumm [facility] ([place]) MCV 84.9 81.3 - 96.4 fL [facility] ([place]) MCH 26.8(L) 27.1 - 33.3 pg [facility] ([place]) MCHC 31.5(L) 32.3 - 35.7 g/dL [facility] ([place]) RDW CV 17.2(H) 11.1 - 14.9 % [facility] ([place]) RDW SD 52.7(H) 35.7 - 48.1 fL [facility] NRBC abs 0.00 0.00 - 0.01 K/cumm [facility] ([place] Blood 03/25/2021 8:26 PM COMMODITY TRADER 03/25/2021 8:32 PM COMMODITY TRADER us Dominic Camara MD LAB BLOOD ORDERABLES Final Resu lt [facility] ([place]) 1 [facility] Department [place] [address] * (ABNORMAL) Basic metabolic panel (03/25/2021 8:26 PM COMMODITY TRADER) Sodium 148(H) 135 - 145 mmol/L [facility] ([place]) Potassium, pl 4.1 3.3 - 4.9 mmol/L [facility] Chloride 112(H) 97 - 110 mmol/L [facility] ([place]) CO2 23 22 - 32 mmol/L [facility] ([place]) Anion gap 12 2 - 15 mmol/L [facility] BUN 40(H) 8 - 25 mg/dL [facility] ([place] Creatinine 0.83 0.60 - 1.10 mg/dL [facility] ([place]) Comment:Icteric sample, test results may be affected. Glucose 127 70 - 199 mg/dL [facility] ([place]) [...] interpretive data was last revised 2017. Calcium 10.5(H) 8.5 - 10.3 mg/dL TOMY SAHU ([place]HTI) Blood 03/25/2021 8:26 PM COMMODITY TRADER 03/25/2021 8:32 PM COMMODITY TRADER Dominic Camara MD LAB BLOOD ORDERABLES Final Resu lt Performing Organization Address [facility] de Phone Number TOMY SAHU (V[place]HTI) 1 [facility] [address] * (ABNORMAL) Cortisol (03/25/2021 8:26 PM COMMODITY TRADER) Cortisol 25.9(H) 4.8 - 19.5 mcg/dl TOMY SAHU (V[place]HTI) Comment: Interpretive Data Normal Range: ??4.8 - 19.5 mcg/dL; ??Evening: ??Half of morning value. ?? This analyte undergoes marked diurnal variation. ??Ranges indicated apply to morning specimens. ?? Current interpretive data was last revised 2018. Testing performed by: [facility], [address] [place] [address]., [id number] Blood 03/25/2021 8:26 PM COMMODITY TRADER 03/26/2021 9:05 AM COMMODITY TRADER Dominic Camara MD LAB BLOOD ORDERABLES Final Resu lt Performing Organization Address [facility] Co de Phone Number TOMY SAHU (VASHTI) 1 [facility] [place] [address] * (ABNORMAL) POCT glucose (03/25/2021 7:48 PM COMMODITY TRADER) Glucose, POC 117(H) 71 - 98 mg/dL TOMY SAHU ([place]I) Blood 03/25/2021 7:48 PM COMMODITY TRADER 03/25/2021 7:48 PM COMMODITY TRADER us Dominic Camara MD LAB POCT ORDERABLES - DEVICE Fi nal Result TOMY SAHU ([place]) 1 [facility] [place] [address] * (ABNORMAL) POCT glucose (03/25/2021 7:00 PM COMMODITY TRADER) Glucose, POC 112(H) 71 - 98 mg/dL TOMY SAHU ([place]I) Blood 03/25/2021 7:00 PM COMMODITY TRADER 03/25/2021 7:00 PM COMMODITY TRADER Dominic Camara MD LAB POCT ORDERABLES - DEVICE Fi nal Result Performing Organization Address City/[facility] Co de Phone Number TOMY SAHU (V[place]HTI) 1 [facility] [place] [address] * (ABNORMAL) POCT glucose (03/25/2021 6:02 PM COMMODITY TRADER) Glucose, POC 121(H) 71 - 98 mg/dL TOMY SAHU ([place]) Blood 03/25/2021 6:02 PM COMMODITY TRADER 03/25/2021 6:02 PM COMMODITY TRADER Dominic Camara MD LAB POCT ORDERABLES - DEVICE Fi nal Result Performing Organization Address City/[facility]/ZIP Co de Phone Number TOMY SAHU (V[place]HTI) 1 [facility] [place] [address] * (ABNORMAL) POCT glucose (03/25/2021 4:59 PM COMMODITY TRADER) Glucose, POC 143(H) 71 - 98 mg/dL TOMY SAHU ([place]) Blood 03/25/2021 4:59 PM COMMODITY TRADER 03/25/2021 4:59 PM COMMODITY TRADER us Dominic Camara MD LAB POCT ORDERABLES - DEVICE Fi nal Result TOMY SAHU (VASHTI) 1 [facility] [place] [address] * (ABNORMAL) POCT glucose (03/25/2021 3:59 PM COMMODITY TRADER) Glucose, POC 169(H) 71 - 98 mg/dL TOMY SAHU (VASHTI) Blood 03/25/2021 3:59 PM COMMODITY TRADER 03/25/2021 3:59 PM COMMODITY TRADER Dominic Camara MD LAB POCT ORDERABLES - DEVICE Fi nal Result Performing Organization Address [facility] de Phone Number TMOY SAHU (VASHTI) [address] [place] [address] * (ABNORMAL) POCT glucose (03/25/2021 3:01 PM COMMODITY TRADER) Glucose, POC 180(H) 71 - 98 mg/dL TOMY SAHU (VASHTI) Blood 03/25/2021 3:01 PM COMMODITY TRADER 03/25/2021 3:01 PM COMMODITY TRADER Dominic Camara MD LAB POCT ORDERABLES - DEVICE Fi nal Result Performing Organization Address [facility] Phone Number TOMY SAHU (VASHTI) [address] [place] [address] * ECG 12 lead (03/25/2021 2:43 PM COMMODITY TRADER) 03/25/2021 2:43 PM COMMODITY TRADER Narrative [facility] - 03/26/2021 8:27 AM COMMODITY TRADER Vent Rate: 151 bpm RR Interval: 395 msec [place] Interval: 111 msec QRS Duration: 70 msec QT Interval: 256 msec QTC Interval: 342 msec P-R-T [place]: 85 - 97 - -18 degrees SINUS TACHYCARDIA WITH SHORT OH INTERVAL, BORDERLINE RIGHT AXIS DEVIATION [QRS AXIS > 90] NONSPECIFIC ST \T\ T-WAVE ABNORMALITY ABNORMAL ECG No change from prior EKG Electronically Signed By: Dariel Hsu MD us Dominic Camara MD ECG ORDERABLES Final Result [facility] [place] * (ABNORMAL) POCT glucose (03/25/2021 2:09 PM COMMODITY TRADER) Glucose, POC 215(H) 71 - 98 mg/dL [facility] Blood 03/25/2021 2:09 PM COMMODITY TRADER 03/25/2021 2:09 PM COMMODITY TRADER Dominic Camara MD LAB POCT ORDERABLES - DEVICE Fi nal Result Performing Organization Address City/[facility]/ZIP Co de Phone Number TOMY [facility] ([place]) 1 [facility] [place] [address] * (ABNORMAL) POCT glucose (03/25/2021 1:18 PM COMMODITY TRADER) Glucose, POC 283(H) 71 - 98 mg/dL [facility] ([place]) Blood 03/25/2021 1:18 PM COMMODITY TRADER 03/25/2021 1:18 PM COMMODITY TRADER Dominic Camara MD LAB POCT ORDERABLES - DEVICE Fi nal Result Performing Organization Address [facility] Co de Phone Number TOMY [facility] ([place]) 1 [facility] [place] [address] * eGFR (03/25/2021 12:52 PM COMMODITY TRADER) eGFR 63 mL/min/1.7 3 m2 [facility] ([place]) Comment: Interpretive Data Reference Interval Normal ?>/= 90 mL/min/1.73m2 Mildly decreased* ? 60 - 89 mL/min/1.73m2 Mildly to moderately decreased ?45 - 59 mL/min/1.73m2 Moderately to severely decreased ??30 - 44 mL/min/1.73m2 Severely decreased ?15 - 29 mL/min/1.73m2 Kidney Failure ?< 15 ??mL/min/1.73m2 *Relative to young adult level Estimated glomerular filtration rate is determined by the CKD-EPI equation recommended by the National Kidney Foundation (KDIGO 2012 Clinical Practice Guideline for the Evaluation and Management of Chronic Kidney Disease. Kidney Intnl Suppl May 2012;3:1). The CKD-EPI equation should not be used for patients with unstable renal function and has not been validated in children and those over 70. Current interpretive data was last reviewed 2020 Blood 03/25/2021 12:5 2 PM COMMODITY TRADER 03/25/2021 12:54 PM COMMODITY TRADER us Thai Zhu MD LAB BLOOD ORDERABLE S Final Result [facility] ([place]) 1 [facility] [place] [address] * (ABNORMAL) Basic metabolic panel (03/25/2021 12:52 PM COMMODITY TRADER) Sodium 146(H) 135 - 145 mmol/L [facility] ([place]) Potassium, pl 4.3 3.3 - 4.9 mmol/L [facility] ([place]) Chloride 111(H) 97 - 110 mmol/L [facility] ([place]) CO2 10(L) 22 - 32 mmol/L [facility] ([place]) Anion gap 25(H) 2 - 15 mmol/L [facility] ([place]) BUN 45(H) 8 - 25 mg/dL [facility] ([place]) Creatinine 1.20(H) 0.60 - 1.10 mg/dL [facility] ([place]) Glucose 273(H) 70 - 199 mg/dL [facility] ([place] Comment: Interpretive Data Fasting [...] interpretive data was last revised 2017. Calcium 9.7 8.5 - 10.3 mg/dL [facility] ([place]) Blood 03/25/2021 12:5 2 PM COMMODITY TRADER 03/25/2021 12:54 PM COMMODITY TRADER us Thai Zhu MD LAB BLOOD ORDERABLE S Final Result TOMY [facility] ([place]) 1 [facility] [place] [address] * (ABNORMAL) POCT glucose (03/25/2021 12:13 PM COMMODITY TRADER) Glucose, POC 275(H) 71 - 98 mg/dL TOMY [facility] ([place]) Blood 03/25/2021 12:1 3 PM COMMODITY TRADER 03/25/2021 12:13 PM COMMODITY TRADER us Thai Zhu MD LAB POCT ORDERABLES - DEVICE Final Result Performing Organization Address [facility] Co de Phone Number TOMY [facility] ([place]) 1 [facility] [place] [address] * (ABNORMAL) POCT glucose (03/25/2021 11:12 AM COMMODITY TRADER) Glucose, POC 422(H) 71 - 98 mg/dL TOMY [facility] ([place]) Blood 03/25/2021 11:1 2 AM COMMODITY TRADER 03/25/2021 11:12 AM COMMODITY TRADER Thai Zhu MD LAB POCT ORDERABLES - DEVICE Final Result Performing Organization Address City/[facility]/ZIP Co de Phone Number TOMY [facility] ([place]) 1 [facility] [place] [address] * [place] CRITICAL CARE ILL/INJURED PATIENT INIT 30-74 MIN (03/25/2021 10:31 AM COMMODITY TRADER) Narrative Thai Zhu MD - 03/25/2021 10:31 AM COMMODITY TRADER Thai Zhu MD ? 03/25/2021 10:32 AM Critical Care Performed by: Thai Zhu MD Authorized by: Thai Zhu MD Critical care provider statement: As reflected in the history, physical exam, orders, notes, and/or MDM, I was personally present while the patient was critically ill and provided critical care services for approximately 31 minutes, excluding time involved in separately billable procedures. ??Critical care was necessary to treat or prevent imminent or life-threatening deterioration of the following condition(s): ?? encephalopathy ?? acid-base disturbance, diabetic ketoacidosis, acute electrolyte derangement and dehydration ??Critical care was time spent by me providing the following: ? continuous telemetry, continuous pulse oximetry, interpretation of bedside monitors, imaging, and arterial/venous lab draws, serial bedside patient exams, serial laboratory checks and resuscitation with fluids ?? frequent neurologic exams ?? glycemic control ?? I provided emergent [...] discussed management with the admitting team. us Thai Zhu MD IN CLINIC/BEDSIDE O RDERABLES Final Result * (ABNORMAL) POCT glucose (03/25/2021 9:51 AM COMMODITY TRADER) Glucose, POC 453(C) 71 - 98 mg/dL TOMY [facility] ([place]) Comment:Glu2: RN/MD Notified Blood 03/25/2021 9:51 AM COMMODITY TRADER 03/25/2021 9:51 AM COMMODITY TRADER us Thai Zhu MD LAB POCT ORDERABLES - DEVICE Final Result TOMY [facility] ([place]) 1 [facility] [place] [address] * (ABNORMAL) Urinalysis, microscopic only (03/25/2021 9:38 AM COMMODITY TRADER) WBC, ur 0-5 0 - 5 /HPF [facility] ([place]) RBC, ur 0-2 0 - 2 /HPF [facility] ([place]) Bacteria, ur Trace(A) [facility] ([place]) Culture Reflex Comment Reflex conditions for urine culture (WBC >10) not met. [facility] ([place]) Urine 03/25/2021 9:38 AM COMMODITY TRADER 03/25/2021 9:42 AM COMMODITY TRADER Thai Zhu MD LAB URINE ORDERABLE S Final Result Performing Organization Address [facility] Co de Phone Number TOMY [facility] ([place]) 1 [facility] [place] [address] * hCG, urine, qualitative (03/25/2021 9:38 AM COMMODITY TRADER) HCG, ur Negative Negative [facility] ([place]) Urine 03/25/2021 9:38 AM COMMODITY TRADER 03/25/2021 9:46 AM COMMODITY TRADER us Thai Zhu MD LAB URINE ORDERABLE S Final Result Performing Organization Address City/[facility] Co de Phone Number TOMY [facility] ([place]) 1 [facility] [place] [address] * Drugs of Abuse Screen, Urine without Confirmation (03/25/2021 9:38 AM COMMODITY TRADER) Amphetamine, ur Not Detected CutOff 500ng/mL [facility] ([place]) Comment: Interpretive Data - Amphetamines: ??Samples [...] Data was last reviewed 2018. Urine Creatinine 65 mg/dL [facility] ([place]) Comment: Interpretive Data Urine Creatinine: < 10 mg/dL is extremely dilute = or > 10 but < 20 mg/dL is dilute = or > 20 mg/dL is normal Current Interpretive Data was last revised on 2017. Urine 03/25/2021 9:38 AM COMMODITY TRADER 03/25/2021 9:42 AM COMMODITY TRADER Narrative TOMY [facility] ([place]) - 03/25/2021 1:16 PM COMMODITY TRADER Drug of Abuse screening is performed by immunoassay for medical purposes only. ??This is not to be used for Pain Management purposes. us Thai Zhu MD LAB URINE ORDERABLE S Final Result TOMY [facility] ([place]) 1 [facility] [place] [address] * (ABNORMAL) Urinalysis reflex to microscopic and culture Urine (03/25/2021 9:38 AM COMMODITY TRADER) Color, ur Yellow Yellow [facility] ([place]) Clarity, ur Clear Clear [facility] ([place]) Specific gravity, ur 1.031(H) 1.003 - 1.030 [facility] ([place]) pH, urine 5.5 [facility] [...] to microscopic UA will be performed. [facility] ([place]) Urine 03/25/2021 9:38 AM COMMODITY TRADER 03/25/2021 9:42 AM COMMODITY TRADER Narrative [facility] ([place]) - 03/25/2021 9:50 AM COMMODITY TRADER ?? Urine pH is affected by diet, medications, systemic acid-base disturbances, and renal tubular function. ??pH may affect urinary stone formation. ??For example, urine pH below 6.0 may help reduce the tendency for calcium phosphate stones and pH greater than 6.0 may reduce the tendency for uric acid stone formation. Source: [facility] [employer]. Last revised 05-13-2017 us Thai Zhu MD LAB MICROBIOLOGY - GENERAL ORDERABLES Final Result TOMY [facility] ([place]) 1 [facility] Department of Laboratories [place], [place] [id number] * eGFR (03/25/2021 9:30 AM COMMODITY TRADER) eGFR 40 mL/min/1.7 3 m2 [facility] ([place]) Comment: Interpretive Data Reference Interval Normal ?>/= 90 mL/min/1.73m2 Mildly decreased* ? 60 - 89 mL/min/1.73m2 Mildly to moderately decreased ?45 - 59 mL/min/1.73m2 Moderately to severely decreased ??30 - 44 mL/min/1.73m2 Severely decreased ?15 - 29 mL/min/1.73m2 Kidney Failure ?< 15 ??mL/min/1.73m2 *Relative to young adult level Estimated glomerular filtration rate is determined by the CKD-EPI equation recommended by the National Kidney Foundation (KDIGO 2012 Clinical Practice Guideline for the Evaluation and Management of Chronic Kidney Disease. Kidney Intnl Suppl May 2012;3:1). The CKD-EPI equation should not be used for patients with unstable renal function and has not been validated in children and those over 70. Current interpretive data was last reviewed 2020 Blood 03/25/2021 9:30 AM COMMODITY TRADER 03/25/2021 9:33 AM COMMODITY TRADER us Thai Zhu MD LAB BLOOD ORDERABLE S Final Result [facility] ([place]) 1 [facility] Department [place] [address] * (ABNORMAL) Differential, auto (03/25/2021 9:30 AM COMMODITY TRADER) Neutrophil abs 13.8(H) 1.7 - 6.5 K/cumm [facility] ([place]) Imm gran abs 0.4(H) 0.0 - 0.1 K/cumm [facility] ([place]) Lymphocyte abs 1.1 0.8 - 3.3 K/cumm [facility] ([place]) Monocyte abs 2.4(H) 0.2 - 0.8 K/cumm [facility] ([place]) Eosinophil abs 0.0 0.0 - 0.5 K/cumm [facility] ([place]) Basophil abs 0.1 0.0 - 0.1 K/cumm [facility] ([place]) Neutrophil pct 78.0 % [facility] ([place]) Comment: Interpretive Data Percent cell count reference ranges are not reported, since discordance with absolute values may lead to misinterpretation of CBC data. Current Interpretive Data was last revised on 2017. Imm gran pct 2.2 % [facility] ([place]) Comment: Interpretive Data Percent cell count reference ranges are not reported, since discordance with absolute values may lead to misinterpretation of CBC data. Current Interpretive Data was last revised on 2017. Lymphocyte pct 6.2 % [facility] ([place]) Comment: Interpretive Data Percent cell count reference ranges are not reported, since discordance with absolute values may lead to misinterpretation of CBC data. Current Interpretive Data was last revised on 2017. Monocyte pct 13.3 % [facility] ([place]) Comment: Interpretive Data [...] Data was last revised on 2017. Blood 03/25/2021 9:30 AM COMMODITY TRADER 03/25/2021 9:33 AM COMMODITY TRADER us Thai Zhu MD LAB BLOOD ORDERABLE S Final Result [facility] ([place]) 1 [facility] Department [place] [address] * (ABNORMAL) Comprehensive metabolic panel (03/25/2021 9:30 AM COMMODITY TRADER) Sodium 142 135 - 145 mmol/L [facility] ([place]) Potassium, pl 5.3(H) 3.3 - 4.9 mmol/L [facility] ([place]) Chloride 103 97 - 110 mmol/L [facility] ([place]) CO2 3(L) 22 - 32 mmol/L [facility] ([place]) Anion gap 36(H) 2 - 15 mmol/L [facility] ([place]) BUN 54(H) 8 - 25 mg/dL [facility] ([place]) Creatinine 1.74(H) 0.60 - 1.10 mg/dL [facility] ([place]) Glucose 603(C) 70 - 199 mg/dL [facility] ([place]) Comment: Critical Result called to and read back by marisol mejia/yanick, DATE: 2021-03-25 09:54:17 BY: karen [email or web address] Interpretive Data Fasting glucose >/= 126 mg/dl [...] - 130 Units/L [facility] ([place]) ALT 30 7 - 45 Units/L [facility] ([place]) AST 9(L) 10 - 45 Units/L [facility] ([place]) Blood 03/25/2021 9:30 AM COMMODITY TRADER 03/25/2021 9:33 AM COMMODITY TRADER us Thai Zhu MD LAB BLOOD ORDERABLE S Final Result [facility] ([place]) 1 [facility] Department [place] [address] * (ABNORMAL) Beta-hydroxybutyrate (03/25/2021 9:30 AM COMMODITY TRADER) Beta-Hydroxybu tyrate 11.0(H) <=0.5 mmol/L [facility] ([place]) Comment:Testing performed by : [facility], [address] [place] [address], [place]., [address] Blood 03/25/2021 9:30 AM COMMODITY TRADER 03/25/2021 11:02 AM COMMODITY TRADER us Thai Zhu MD LAB BLOOD ORDERABLE S Final Result [facility] ([place]) 1 [facility] Department [place] [address] * (ABNORMAL) CBC with auto differential (03/25/2021 9:30 AM COMMODITY TRADER) Pathologist [facility] WBC 17.6(H) 3.8 - 9.9 K/cumm [facility] ([place]) Hgb 12.9 11.9 - 15.5 g/dL [facility] ([place]) Hct 43.6 35.6 - 45.5 % [facility] ([place]) Plt 665(H) 150 - 400 K/cumm [facility] ([place]) MPV 9.7 9.1 - 12.3 fL [facility] ([place]) RBC 4.83 3.90 - 5.20 M/cumm [facility] ([place]) MCV 90.3 81.3 - 96.4 fL [facility] ([place]) MCH 26.7(L) 27.1 - 33.3 pg [facility] ([place]) MCHC 29.6(L) 32.3 - 35.7 g/dL [facility] ([place]) RDW CV 18.1(H) 11.1 - 14.9 % [facility] ([place]) RDW SD 58.2(H) 35.7 - 48.1 fL [facility] ([place]) NRBC abs 0.00 0.00 - 0.01 K/cumm [facility] ([place]) Blood 03/25/2021 9:30 AM COMMODITY TRADER 03/25/2021 9:33 AM COMMODITY TRADER us Thai Zhu MD LAB BLOOD ORDERABLE S Final Result TOMY [facility] [place] 1 [facility] Department [place] [address] documented in this encounter Visit Diagnoses Diagnosis Diabetic ketoacidosis with coma associated with type 1 diabetes mellitus (CMS/HCC) (HCC)- Primary Diabetic ketoacidosis with coma associated with type 1 diabetes mellitus (CMS/HCC) (HCC) Tachycardia Unspecified tachycardia documented in this encounter Admitting Diagnoses Diagnosis Diabetic ketoacidosis with coma associated with type 1 diabetes mellitus (CMS/HCC) (HCC) documented in this encounter Administered Medications Inactive Administered Medications - up to 3 most recent administrations Medication Order MAR Action Action Date Dose Rate Site acetaminophen (TYLENOL) tablet 650 mg 650 mg, oral, Every 4 hours PRN, 1st line for pain, fever, Starting on Wed03/25/21 at 1526 albumin 5 % bottle 25 g 25 g, intravenous, Once, On Wed03/25/21 at 1500, For 1 dose, Infusion rate depends on indication and clinical situation. Suggested initial rate - 120 mL/hr. In patients with normal plasma volume, do not exceed 2 mL/minute, Indications: Other (complete free text reason below)Indications:Othe r (complete free text reason below) Given 03/25/2021 2:36 PM COMMODITY TRADER 25 g bisacodyl EC (DULCOLAX EC) tablet 10 mg 10 mg, oral, Daily PRN, constipation, If no results 24 hours after milk of magnesia, Starting on Wed03/26/21 at 1710, Do not crush, chew, cut, dissolve, open or otherwise manipulate tablet/capsule. dextrose (D10W) 10% bolus 250 mL 250 mL, intravenous, at 1,000 mL/hr, Administer over 15 Minutes, Every 15 min PRN, blood glucose less than 70 mg/dL and UNABLE to swallow/take PO glucose/juice., Starting on Wed03/26/21 at 0707, After treatment for hypoglycemia, recheck BG followed by treatment every 15 minutes until the BG is greater than 100 mg/dL. Then check BG 1 hour post treatment. If BG is less than 100 mg/dL, repeat Q15 minute BG checks and treatment. Call MD for each episode of hypoglycemia., Indications: hypoglycemic disorderIndications:hy poglycemic disorder dextrose 5% and sodium chloride 0.45% infusion (premix) 100 mL/hr, intravenous, Continuous, Starting on Wed03/25/21 at 1600 New Bag 03/25/2021 3:56 PM COMMODITY TRADER 100 mL/hr 100 mL/hr dextrose gel in packet 15 g 15 g, oral, Every 15 min PRN, low blood sugar, blood glucose less than 70 mg/dL, Starting on Wed03/26/21 at 0707, If patient is alert and able to [...] for each episode of hypoglycemia., Indications: hypoglycemic disorderIndications:hy poglycemic disorder enoxaparin (LOVENOX) syringe 40 mg 40 mg, subcutaneous, Daily (for enoxaparin), First dose on Wed03/25/21 at 2100, Indications: Deep Vein Thrombosis PreventionIndications: Deep Vein Thrombosis Prevention Given 03/25/2021 8:12 PM COMMODITY TRADER 40 mg Left Lower Abdomen famotidine (PEPCID) injection 20 mg 20 mg, intravenous, Administer over 2 Minutes, Every 12 hours scheduled, First dose on Wed03/25/21 at 2100, Indications: Prevention of Stress UlcerIndications:Preve ntion of Stress Ulcer Given 03/26/2021 7:42 AM COMMODITY TRADER 20 mg Given 03/25/2021 8:13 PM COMMODITY TRADER 20 mg glucagon injection 1 mg 1 mg, intramuscular, Every 30 min PRN, low blood sugar, blood glucose less than 70 mg/dL AND no IV access AND unable to take PO glucose/juice., Starting on Wed03/26/21 at 0707, After Glucagon is administered, position patient on [...] SEMGLEE) 100 unit/mL (3 mL) pen injection 15 Units 15 Units, subcutaneous, Nightly, First dose (after last modification) on Nurys 03/27/21 at 2100, Do not hold if NPO. Attach new pen needle required for each administration. Each new pen needle must be primed with 2 units prior to administration. Do not mix with other insulins., Indications: Diabetes MellitusIndications:Diabetes Mellitus insulin glargine (LANTUS, BASAGLAR, SEMGLEE) 100 unit/mL (3 mL) pen injection 20 Units 20 Units, subcutaneous, Every 12 hours scheduled, First dose (after last modification) on Wed03/26/21 at 0900, Do not hold if NPO. Attach new pen needle required for each administration. Each new pen needle must be primed with 2 units prior to administration. Do not mix with other insulins., Indications: Diabetes MellitusIndications:Diabetes Mellitus Given 03/26/2021 8:32 PM COMMODITY TRADER 20 Units Right Upper Arm Given 03/26/2021 8:33 AM COMMODITY TRADER 20 Units Le ft Upper Arm insulin lispro (HumaLOG, ADMELOG) 100 unit/mL pen injection 0-10 Units 0-10 Units, subcutaneous, 3 times daily with meals, First dose on Wed03/26/21 at 0800, Blood glucose mg/dL: 149 or [...] to administration., Indications: Diabetes MellitusIndications:Diabetes Mellitus Given 03/27/2021 8:40 AM COMMODITY TRADER 2 Units Left Upper Arm Given 03/26/2021 8:36 AM COMMODITY TRADER 2 Units Le ft Upper Arm insulin lispro (HumaLOG, ADMELOG) 100 unit/mL pen injection 0-5 Units 0-5 Units, subcutaneous, Nightly, First dose on Wed03/26/21 at 2100, Blood glucose mg/dL: 149 or [...] to administration., Indications: Diabetes MellitusIndications:Diabetes Mellitus Given 03/26/2021 8:32 PM COMMODITY TRADER 3 Units Right Upper Arm insulin lispro (HumaLOG, ADMELOG) 100 unit/mL pen injection 5 Units 5 Units (rounded from 5.3203 Units = 0.083 Units/kg ? 64.1 kg), subcutaneous, 3 times daily with meals, First dose on Wed03/26/21 at 0800, If BG greater than or [...] to administration., Indications: Diabetes MellitusIndications:Diabetes Mellitus Given 03/27/2021 8:40 AM COMMODITY TRADER 5 Units Left Upper Arm Given 03/26/2021 12:25 PM COMMODITY TRADER 5 Units R ight Upper Arm Given 03/26/2021 8:36 AM COMMODITY TRADER 5 Units Le ft Upper Arm insulin regular in 0.9% sodium chloride 100 units/100 mL infusion (premix) 0-30 Units/hr (0-30 mL/hr), 1 units/mL, intravenous, Titrated, Starting on Wed03/25/21 at 0934, Until Wed03/25/21 at 1526, Indications: Hyperglycemia, Desired Range (mg/dL): 130-180 general patients, Multiplier: 0.01, NON-WEIGHT BASED DOSING Adjust rate per GlucoStabilizer program for dka order When new IV tubing is used, completely prime the tubing. Once primed, waste an additional 20 ml of insulin infusion using the IV pump prior to connecting to patient., STATIndications:Hyperglycemi a Rate/Dose Change 03/25/2021 3:01 PM COMMODITY TRADER 4.8 Units/hr 4.8 mL/hr Rate/Dose Change 03/25/2021 2:10 PM COMMODITY TRADER 4.7 Units/hr 4.7 m L/hr Rate/Dose Change 03/25/2021 1:18 PM COMMODITY TRADER 6.7 Units/hr 6.7 m L/hr insulin regular in 0.9% sodium chloride 100 units/100 mL infusion (premix) 0-30 Units/hr (0-30 mL/hr), 1 units/mL, intravenous, Titrated, Starting on Wed03/25/21 at 1600, Until Wed03/26/21 at 0707, Indications: Hyperglycemia, Desired Range (mg/dL): 130-180 general patients, Multiplier: 0.02, NON-WEIGHT BASED DOSING Adjust rate per GlucoStabilizer program for dka order When new IV tubing is used, completely prime the tubing. Once primed, waste an additional 20 ml of insulin infusion using the IV pump prior to connecting to patient., RoutineIndications:Hyperglyc emia Rate/Dose Change 03/26/2021 6:42 AM COMMODITY TRADER 0.9 Units/hr 0.9 mL/hr Rate/Dose Change 03/26/2021 5:47 AM COMMODITY TRADER 0.7 Units/hr 0.7 m L/hr Rate/Dose Change 03/26/2021 4:50 AM COMMODITY TRADER 0.6 Units/hr 0.6 m L/hr Lactated Ringer's (LR) bolus 1,000 mL 1,000 mL, intravenous, Once, On Wed03/25/21 at 0902, For 1 dose New Bag 03/25/2021 11:43 AM COMMODITY TRADER 1,000 mL Lactated Ringer's (LR) bolus 1,000 mL 1,000 mL, intravenous, Once, On Wed03/25/21 at 0902, For 1 dose New Bag 03/25/2021 9:36 AM COMMODITY TRADER 1,000 mL magnesium hydroxide (MILK OF MAGNESIA) 80 mg/mL (33.3 mg/mL as elemental magnesium) oral suspension 30 mL 30 mL, oral, Daily PRN, constipation, Starting on Wed03/26/21 at 1710 metoprolol (LOPRESSOR) injection 2.5 mg 2.5 mg, intravenous, Administer over 1 Minutes, Every 6 hours scheduled, First dose on Wed03/25/21 at 1800, Indications: Supraventricular TachycardiaIndications:Supraventricular Tachycardia Given 03/25/2021 6:03 PM COMMODITY TRADER 2.5 mg metoprolol tartrate (LOPRESSOR) immediate release tablet 6.25 mg 6.25 mg, oral, 2 times daily, First dose on Wed03/26/21 at 1000, Indications: Atrial ArrhythmiaIndications:Atrial Arrhythmia Given 03/27/2021 8:41 AM COMMODITY TRADER 6.25 mg Given 03/26/2021 8:34 PM COMMODITY TRADER 6.25 mg Given 03/26/2021 11:43 AM COMMODITY TRADER 6.25 mg mineral oil (FLEET MINERAL OIL) enema 1 enema 1 enema, rectal, Daily PRN, constipation, if no results 24 hours after bisacodyl, Starting on Wed03/26/21 at 1710, Indications: constipationIndications:con stipation ondansetron (ZOFRAN) injection 4 mg 4 mg, intravenous, Administer over 2 Minutes, Every 30 min PRN, nausea, vomiting, Starting on Wed03/25/21 at 0901, For 2 doses, Indications: Nausea, VomitingIndications:Nausea, Vomiting Given 03/25/2021 9:36 AM COMMODITY TRADER 4 mg ondansetron (ZOFRAN) injection 4 mg 4 mg, intravenous, Administer over 2 Minutes, Every 4 hours PRN, nausea, vomiting, Starting on Wed03/25/21 at 1526, Indications: Prevention of Post-Operative Nausea and VomitingIndications:Prevent ion of Post-Operative Nausea and Vomiting sodium chloride 0.45% infusion 150 mL/hr, intravenous, Continuous, Starting on Wed03/25/21 at 0910, Decrease rate to 50 mL/hr when blood glucose less than 250 mg/dL. Rate/Dose Verify 03/25/2021 11:17 AM COMMODITY TRADER 150 mL/hr 150 mL/hr New Bag 03/25/2021 10:12 AM COMMODITY TRADER 150 mL/hr 150 mL/hr documented in this encounter Active and Recently Administered Medications Times are shown in COMMODITY TRADER. Scheduled Medication Order 03/25/2021 03/26/2021 03/27/2021 albumin 5 % bottle 25 g (COMPLETED) 25 g, intravenous, Once, On Wed03/25/21 at 1500, For 1 dose, Infusion rate depends on indication and clinical situation. Suggested initial rate - 120 mL/hr. In patients with normal plasma volume, do not exceed 2 mL/minute, Indications: Other (complete free text reason below) 1436 (Given - Provider: Shamika Cano, MARY) enoxaparin (LOVENOX) syringe 40 mg 40 mg, subcutaneous, Daily (for enoxaparin), First dose on Wed03/25/21 at 2100, Indications: Deep Vein Thrombosis Prevention 2011 (Given - Provider: Jed Parra, RN) 2027 (Not Given - Provider: Isaura Mederos, MARY - Reason: Patient/family refused) famotidine (PEPCID) injection 20 mg 20 mg, intravenous, Administer over 2 Minutes, Every 12 hours scheduled, First dose on Wed03/25/21 at 2100, Indications: Prevention of Stress Ulcer 2012 (Given - Provider: Jed Parra, RN) 0742 (Given - Provider: Juice Vargas, RN)2027 (Not Given - Provider: Isaura Mederos, MARY - Reason: Patient/family refused) 0839 (Not Given - Provider: Cammie Bower RN - Reason: Patient/family refused) insulin glargine (LANTUS, BASAGLAR, SEMGLEE) 100 unit/mL (3 mL) pen injection 15 Units 15 Units, subcutaneous, Nightly, First dose (after last modification) on Wed03/27/21 at 2100, Do not hold if NPO. [...] scheduled, First dose (after last modification) on Wed03/26/21 at 0900, Do not hold if NPO. Attach new pen needle required for each administration. Each new pen needle must be primed with 2 units prior to administration. Do not mix with other insulins., Indications: Diabetes Mellitus 0833 (Given - Provider: Juice Vargas RN)2031 (Given - Provider: Isaura Mederos, RN) insulin lispro (HumaLOG, ADMELOG) 100 unit/mL pen injection 0-10 Units 0-10 Units, subcutaneous, 3 times daily with meals, First dose on Wed03/26/21 at 0800, Blood glucose mg/dL: 149 or [...] units prior to administration., Indications: Diabetes Mellitus 0836 (Given - Provider: Juice Vargas RN)1142 (Not Given - Provider: Juice Vargas RN - Reason: Order parameters not met)1701 (Not Given - Provider: Eliane Brandt RN - Reason: Order parameters not met) 0840 (Given - Provider: Cammie Bower, MARY)1200 (Due) insulin lispro (HumaLOG, ADMELOG) 100 unit/mL pen injection 0-5 Units 0-5 Units, subcutaneous, Nightly, First dose on Wed03/26/21 at 2100, Blood glucose mg/dL: 149 or [...] units prior to administration., Indications: Diabetes Mellitus 2031 (Given - Provider: Isaura Mederos, MARY) insulin lispro (HumaLOG, ADMELOG) 100 unit/mL pen injection 5 Units 5 Units (rounded from 5.3203 Units = 0.083 Units/kg ? 64.1 kg), subcutaneous, 3 times daily with meals, First dose on Wed03/26/21 at 0800, If BG greater than or [...] units prior to administration., Indications: Diabetes Mellitus 0836 (Given - Provider: Juice Vargas RN)1225 (Given - Provider: Juice Vargas RN)1703 (Hold - Provider: Eliane Brandt RN - Reason: Contraindicated - Comment: BG 50 spoke with MD) 0840 (Given - Provider: Cammie Bower, MARY)1200 (Due) Lactated Ringer's (LR) bolus 1,000 mL (COMPLETED) 1,000 mL, intravenous, Once, On Wed03/25/21 at 0902, For 1 dose 1013 (Hold - Provider: Key Siegel RN - Reason: IV Infusing)1143 (New Bag - Provider: Key Siegel RN) Lactated Ringer's (LR) bolus 1,000 mL (COMPLETED) 1,000 mL, intravenous, Once, On Wed03/25/21 at 0902, For 1 dose 0936 (New Bag - Provider: Key Siegel RN)1142 (Stopped - Provider: Key Siegel RN) metoprolol (LOPRESSOR) injection 2.5 mg (CANCELED) 2.5 mg, intravenous, Administer over 1 Minutes, Every 6 hours scheduled, First dose on Wed03/25/21 at 1800, Indications: Supraventricular Tachycardia 1803 (Given - Provider: Shamika Cano, MARY)2352 (Not Given - Provider: Jed Parra RN - Reason: Other - Comment: Low BP) 0615 (Not Given - Provider: Jed Parra RN - Reason: Other - Comment: hypotensive at times) metoprolol tartrate (LOPRESSOR) immediate release tablet 6.25 mg 6.25 mg, oral, 2 times daily, First dose on Wed03/26/21 at 1000, Indications: Atrial Arrhythmia 1143 (Given - Provider: Juice Vargas, RN)2034 (Given - Provider: Isaura Mederos, MARY) 0841 (Given - Provider: Cammie Bower RN) Continuous Medication Order 03/25/2021 03/26/2021 03/27/2021 dextrose 5% and sodium chloride 0.45% infusion (premix) (CANCELED) 100 mL/hr, intravenous, Continuous, Starting on Wed03/25/21 at 1600 1556 (New Bag - Provider: Shamika Cano RN) insulin regular in 0.9% sodium chloride 100 units/100 mL infusion (premix) (CANCELED) 0-30 Units/hr (0-30 mL/hr), 1 units/mL, intravenous, Titrated, Starting on Wed03/25/21 at 0934, Until Wed03/25/21 at 1526, Indications: Hyperglycemia, Desired Range (mg/dL): 130-180 general patients, Multiplier: 0.01, NON-WEIGHT BASED DOSING Adjust rate per GlucoStabilizer program for dka order When new IV tubing is used, completely prime the tubing. Once primed, waste an additional 20 ml of insulin infusion using the IV pump prior to connecting to patient., STAT 1016 (New Bag - Provider: Key Siegel RN)1118 (Rate/Dose Change - Provider: Key Siegel RN)1214 (Rate/Dose Change - Provider: Key Siegel RN)1318 (Rate/Dose Change - Provider: Shamika Cano RN)1410 (Rate/Dose Change - Provider: Shamika Cano RN)1501 (Rate/Dose Change - Provider: Shamika Cano RN) insulin regular in 0.9% sodium chloride 100 units/100 mL infusion (premix) (CANCELED) 0-30 Units/hr (0-30 mL/hr), 1 units/mL, intravenous, Titrated, Starting on Wed03/25/21 at 1600, Until Wed03/26/21 at 0707, Indications: Hyperglycemia, Desired Range (mg/dL): 130-180 general patients, Multiplier: 0.02, NON-WEIGHT BASED DOSING Adjust rate per GlucoStabilizer program for dka order When new IV tubing is used, completely prime the tubing. Once primed, waste an additional 20 ml of insulin infusion using the IV pump prior to connecting to patient., Routine 1600 (Rate/Dose Change - Provider: Shamika Cano RN)1701 (Rate/Dose Change - Provider: Shamika Cano, MARY)1803 (Rate/Dose Change - Provider: Shamika Cano RN)1901 (Rate/Dose Change - Provider: Shamika Cano RN)1950 (Rate/Dose Change - Provider: Jed Parra RN)2104 (Stopped - Provider: Jed Parra RN)2257 (Rate/Dose Change - Provider: Jed Parra RN)2348 (Rate/Dose Change - Provider: Jed Parra RN) 0057 (Rate/Dose Change - Provider: Jed Parra RN)0152 (Rate/Dose Change - Provider: Jed Parra RN)0244 (Rate/Dose Change - Provider: Jed Parra RN)0349 (Rate/Dose Change - Provider: Jed Parra RN)0450 (Rate/Dose Change - Provider: Jed Parra RN)0547 (Rate/Dose Change - Provider: Jed Parra RN)0642 (Rate/Dose Change - Provider: Jed Parra RN) sodium chloride 0.45% infusion (CANCELED) 150 mL/hr, intravenous, Continuous, Starting on Wed03/25/21 at 0910, Decrease rate to 50 mL/hr when blood glucose less than 250 mg/dL. 1012 (New Bag - Provider: Key Siegel RN)1117 (Rate/Dose Verify - Provider: Key Siegel RN) PRN Medication Order 03/25/2021 03/26/2021 03/27/2021 acetaminophen (TYLENOL) tablet 650 mg 650 mg, oral, Every 4 hours PRN, 1st line for pain, fever, Starting on Wed03/25/21 at 1526 bisacodyl EC (DULCOLAX EC) tablet 10 mg 10 mg, oral, Daily PRN, constipation, If no results 24 hours after milk of magnesia, Starting on Wed03/26/21 at 1710, Do not crush, chew, cut, dissolve, open or otherwise manipulate tablet/capsule. dextrose (D10W) 10% bolus 250 mL(Linked Group 1) 250 mL, intravenous, at 1,000 mL/hr, Administer over 15 Minutes, Every 15 min PRN, blood glucose less than 70 mg/dL and UNABLE to swallow/take PO glucose/juice., Starting on Wed03/26/21 at 0707, After treatment for hypoglycemia, recheck BG followed [...] glucose less than 70 mg/dL, Starting on Wed03/26/21 at 0707, If patient is alert and able to [...] unable to take PO glucose/juice., Starting on Wed03/26/21 at 0707, After Glucagon is administered, position patient on [...] mL, oral, Daily PRN, constipation, Starting on Wed03/26/21 at 1710 mineral oil (FLEET MINERAL OIL) enema 1 enema 1 enema, rectal, Daily PRN, constipation, if no results 24 hours after bisacodyl, Starting on Wed03/26/21 at 1710, Indications: constipation ondansetron (ZOFRAN) injection 4 mg (CANCELED) 4 mg, intravenous, Administer over 2 Minutes, Every 30 min PRN, nausea, vomiting, Starting on Wed03/25/21 at 0901, For 2 doses, Indications: Nausea, Vomiting 0936 (Given - Provider: Key Siegel RN) ondansetron (ZOFRAN) injection 4 mg 4 mg, intravenous, Administer over 2 Minutes, Every 4 hours PRN, nausea, vomiting, Starting on Wed03/25/21 at 1526, Indications: Prevention of Post-Operative Nausea and Vomiting Linked Groups Order Group 1: dextrose gel in packet 15 gJump to med 15 g, oral, Every 15 min PRN, low blood sugar, blood glucose less than 70 mg/dL, Starting on Wed03/26/21 at 0707, If patient is alert and able to [...] UNABLE to swallow/take PO glucose/juice., Starting on Wed03/26/21 at 0707, After treatment for hypoglycemia, recheck BG followed [...] SEMGLEE) 100 unit/mL (3 mL) pen injection 15 Units 1 03/27/2021 bisacodyl EC (DULCOLAX EC) tablet 10 mg 1 1 05/26/2020 dextrose (D10W) 10% bolus 250 mL 1 03/26/20 dextrose gel in packet 15 g 1 03/26/2021 glucagon injection 1 mg 1 03/26/2021 insulin glargine (LANTUS, BA SAGLAR, SEMGLEE) 100 unit/mL (3 mL) pen injection 16 Units 1 03/26/2021 magnesium hydroxide (MILK OF MAGNESIA) 80 mg/mL (33.3 mg/mL as elemental magnesium) oral suspension 30 mL 1 03/26/2021 mineral oil (FLEET MINERAL O IL) enema 1 enema 1 03/26/2021 acetaminophen (TYLENOL) tablet 650 mg 1 dextrose (D10W) 10% bolus 1-500 mL 1 2020 dextrose 5% infusion 1 03/25/2021 insulin regular (HumuLIN R, NovoLIN R) 100 Units in sodium chloride 0.9% 100 mL (1 Units/mL) infusion 1 03/25/2021 insulin regular bolus from bag 1-10 Units 1 03/25/2021 ondansetron (ZOFRAN) injection 4 mg 1 03/25 potassium chloride 40 mEq/52 0 mL in sodium chloride 0.9% (premix) 40 mEq 1 03/25/2021 Lab Orders Without Results Count Last Ordered D ate First Ordered Date POCT GLUCOSE DEVICE 2 03/26/2021 Diet Count Last Ordered Date First Orde red Date ADULT DISCHARGE DIET 1 03/27/2021 Nursing Count Last Ordered Date First Orde red Date DISCHARGE ACTIVITY 1 03/27/2021 DISCHARGE CALL PROVIDER 8 03/27/2021 DISCHARGE INSTRUCTIONS 1 03/27/2021 ADT Patient Update Count Last Ordered Date Firs t Ordered Date ED IP DECISION TO ADMIT 1 03/25/2021 documented in this encounter Care Teams Cost Control Supervisor Relationship Specialty Start Date End Date Carrie Joseph PA [address] [place], [place] [id number] PCP - General 10/04/18 07/19/21 Warren Phillips MD [address] [place] [address] Consulting Physician Gastroenterology 02/16/19 documented as of this encounter
--- OUTSIDE RECORDS SUMMARY | 2024-05-10 18:38 | XMS_ITS | Encounter Summary ---
Author Organization [facility] Healthcare Address [address] [place] [address] Care Team Providers Care Bottom Turning Lathe Turner Name Role Phone Carrie Joseph Primary Care Provider + Warren Phillips MD Unavailable [phone] Encounter Details Date Type Department Care Team (Late st Contact Info) Description 03/26/[address] [facility] [address] [place] [id number] Jerome Martinez MD [address] [facility] [id number] [place] [address] Supervision of high-risk (Primary Dx); T1DM in Social History Tobacco Use Types Packs/Day Years Used Date Smoking Tobacco: Never Smokeless Tobacco: Never Alcohol Use Standard Drinks/Week Comments Not Currently 0 (1 standard drink = 0.6 oz pur e alcohol) AUDIT-C Answer Date Recorded Frequency of Alcohol Consumption Monthly or less 02/14/2019 Average Number of Drinks Not on file 019 Frequency of Binge Drinking Not on file 01/31 PHQ-2 Answer Date Recorded PHQ-2 Total Score (If total score is 3 or more points, staff should administer the PHQ-9) 0 03/13/2020 Comments Yes Sex and Gender Information Value Date Recorded Sex Assigned at Not on file Legal Sex Female 3:13 AM PRODUCTION ROUSTABOUT Gender Identity Not on file Sexual Orientation Not on file documented as of this encounter Progress Notes * Jerome Martinez MD - 03/26/2020 3:38 PM CST Per head concierge request, reviewed US findings with patient. 03/07: GS with MSD 6.6 mm, no YS, no pole 03/26: GS, YS, pole with NO cardiac activity Per guidelines, these findings are diagnostic of an early failure. Reviewed this with thepatient, #Early loss: HD stable, asymptomatic, denies VB, LOF, or cramping. Still having pregnancysymptoms of nausea. Counseled patient that early loss occurs in 10-15% of all clinically recognized pregnancies and occurs due to chromosomal abnormalities 50% of the time. Discussed that only 2% of women experience two losses in a row, and only about 1% have three consecut shonna losses. Discussed options including expectant, medical and surgical management. The patient desires expectant management at this time. She is already scheduled for f/u in [facility] next week, so will add on for another US at that time for final confirmation of viability (or lack thereof). Patient given strict return precautions regarding heavy bleeding, intolerable pain, N/V, F/C, CP, SOB, uncontrolled BGs. Jerome Martinez MD 03/26/2020 UCTION ROUSTABOUT documented in this encounter Plan of Treatment Not on file documented as of this encounter Visit Diagnoses Diagnosis Supervision of high-risk - Primary T1DM in documented in this encounter Historical Medications * This list may reflect changes made after this encounter. insulin syringe-needle U-100 0.3 mL 31 gauge x 5/16 syringe 1 Syringe 01/29/2022 amoxicillin-clavu lanate (AUGMENTIN) 875-125 mg per tablet TAKE 1 TABLET BY MOUTH EVERY 12 HOURS FOR 2 DAYS 03/23/2020 11/16/2020 folic acid (FOLVITE) 1 mg tablet TAKE 3 TABLETS BY MOUTH ONCE DAILY 03/22/2020 11/16/2020 added in this encounter Care Teams Bottom Turning Lathe Turner Relationship Specialty Start Date End Date Carrie Joseph PA [address] [place] [address] PCP - General 10/04/18 07/19/21 Warren Phillips MD [address] [place] [address] Consulting Physician Gastroenterology 02/16/19 documented as of this encounter
--- OUTSIDE RECORDS SUMMARY | 2024-05-10 18:38 | XMS_ITS | Encounter Summary ---
Author Organization [facility] Healthcare Address [address] [place] [address] Care Team Providers Care [employer] Mathematics Teacher Name Role Phone Carrie Joseph Primary Care Provider + Warren Phillips MD Unavailable [phone] Reason for Visit * Reason Comments Altered Mental Status Encounter Details Date Type Department Care Team (Latest Contact Info) Description 03/04/2021 6:26 AM CDT - 03/07/2021 6:00 PM CDT Hospital Encounter [facility] [address] [place] [address] [place] [address] [place] [address] Dominic Camara MD [address] [facility] [address] [place] [address] Kisha Holland MD [address] [place] [address] [place] [address] Cally Crespo MD [address] [place] [address] [place] [address] Altered mental status, unspecified altered mental status type (Primary Dx); Diabetic ketoacidosis with coma associated [...] on file Legal 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 Gender Identity Not on file Sexual Orientation Not on file documented as of this encounter Last Filed Vital Signs Vital Sign Reading Time Taken Comments Blood Pressure 116/78 03/07/2021 3:00 PM CDT Pulse 113 03/07/2021 3:00 PM CDT Temperature 36.2 ??C (97.2 ??F) 03/07/2021 3:00 PM CD T Respiratory Rate 18 03/07/2021 3:00 PM CDT Oxygen Saturation 100% 03/07/2021 3:00 PM CDT Inhaled Oxygen Concentration - - Weight 66 kg (145 lb 8.1 oz) 03/05/2021 4:19 AM CDT Height 157.5 cm (5' 2 ) 03/07/2021 2:16 PM CDT Body Mass Index 26.61 03/05/2021 4:19 AM CDT documented in this encounter Discharge Diagnoses Diagnosis Type 1 diabetes mellitus with ketoacidosis with coma (HCC) - TYPE 1 DIABETES MELLITUS WITH KETOACIDOSIS WITH COMA Metabolic encephalopathy - METABOLIC ENCEPHALOPATHY Acute kidney failure, unspecified (HCC) - ACUTE KIDNEY FAILURE, UNSPECIFIED Acute kidney failure, unspecified 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 (HCC) - TYPE 1 DIABETES MELLITUS WITH DIABETIC AUTONOMIC (POLY)NEUROPATHY Gastroparesis - GASTROPARESIS Hypokalemia - HYPOKALEMIA Hypopotassemia Cannabis abuse, uncomplicated - CANNABIS ABUSE, UNCOMPLICATED Nausea with vomiting, unspecified - NAUSEA WITH VOMITING, UNSPECIFIED Contact with and (suspected) exposure to covid-19 - CONTACT WITH AND (SUSPECTED) EXPOSURE TO COVID-19 retirement (current) use of insulin (HCC) - 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 Patient's noncompliance with other medical treatment and regimen - PATIENT'S NONCOMPLIANCE WITH OTHER MEDICAL TREATMENT AND REGIMEN documented in this encounter Discharge Summaries * Kisha Holland MD - 03/07/2021 6:00 PM CDT Inpatient Discharge Summary BRIEF OVERVIEW Admitting Provider: Dominic Camara MD Discharge Provider: Kisha Holland MD Primary Care Physician at Discharge: Carrie Joseph PA [phone] Admission Date: 03/04/2021 Discharge Date: Admission Location: [facility] Problems/Diagnoses: Principal Problem: Altered mental status Resolved Problems: No resolved hospital problems. DETAILS OF HOSPITAL STAY Presenting Problem/History of Present Illness: This is a 25 y.o. female with PMH of DMT1 with recurrence for hyperglycemia who presented with nausea and vomiting, found to have diabetic ketoacidosis, started on insulin ggt and admitted to the ICU.?? Hospital Course: DM type 1 insulin dependent -Frequent episodes of DKA in light of n/v 2/2 cannabis use -On 15 units basal coverage + ss at home -Admitted to the ICU for DKA, anion gap closed and blood glucose well controlled -We will continue with insulin glargine 10 units and close monitor on ss -quarter doper counseling -Zofran prn for n/v -Need close outpatient follow up with endo ? Cannabinoid abuse with episodes of cyclic vomiting -Counseling on cessation provided ?Patient was seen and examined this morning. Vitals stable. Denies abdominal pain, nausea, vomiting. Tolerates po intake. Labs reviewed, remarkable of hypopotassemia of 3 that was replenished, repeated potassium wnl. Glucose well controlled. Diabetic educations provided. Patient will continue withher home dose insulin 15 units and sliding scale. Needs close follow up with her director of consumer marketing [facility] Dr. Sanches. Verbalized understanding. I spent 33 minutes evaluating the patient and discussing treatment plan. ? Active Issues Requiring Follow-up: DMT2, follows with Dr. Sanches Test Results Pending at Discharge: none Pertinent Test Results: Discharge Details Physical Exam at Discharge: Discharge Condition: Pulse: 113 Resp: 18 BP: 116/78 Temp: 36.2 ??C (97.2 ??F) Weight: 66 kg (145 lb 8.1 oz) Pertinent Exam Findings at Discharge: Eyes: EOMI, ZORAIDA, sclare non icteric Neck: supple, no nuchal ridigity, no gross carotid bruits appreciated Pharynx: No gross oral lesion, tongue midline, mucosa moist Lungs CTA Heart: [id number], no significant murmur or gallop Abd: +BS, Non Tender, Non distended, No gross hepatomegaly Lower Ext: No gross edema, pedal artery pulses are palpable bilaterally Neuro: No new deficits appreciated Musculoskeletal: no gross joint erythema, edema, tenderness Skin: No new change Discharge Disposition: Discharge to home or self care Code Status at Discharge: full Discharge Instructions: Discharge Medications: Current Medications TAKE these medications insulin glargine 100 unit/mL (3 mL) pen for injection Inject 18 Units under the skin nightly Commonly known as: LANTUS, BASAGLAR, SEMGLEE insulin lispro 100 unit/mL vial for injection Inject under the skin 3 (three) times a day before meals Uses per sliding scale 1 unit per every 8 grams of carb Commonly known as: HumaLOG, ADMELOG insulin syringe-needle [...] Carrie Joseph PA Specialty: Internal Medicine, Physician Cnc Mill Set Up Operator, Emergency Medicine Relationship: PCP - General SI [address] [facility] [id number] Next Steps: Schedule an appointment as soon as possible for a visit documented in this encounter Discharge Instructions * Discharge Instructions* Paulette Bowman RN - 03/07/2021 5:43 PM CDT THANK YOU for choosing our team to provide your health care. Your HEALTH AND SAFETY are important to us. We hope you feel your care on SCU was ALWAYS EXCELLENT! Please call SCU at [phone] if you have any questions regarding your care. Wishing you continued improvement during your recovery. Your Surgical Care Unit Team Paulette Cee, Susan Julian, Liliane, Paulina, Isaura, Kathryn, Mary, Ida, Saul Curtis, Hanh Braden, Fay, Valerie Hung Rochelle, Simona, Kita Scott. documented in this encounter Medications at Time [...] documented in this encounter Progress Notes * Yossi Ragininisreen SelbyDIANDRA - 03/07/2021 2:29 PM CDT Nutrition Assessment Reason for Assessment: Initial Nutrition Assessment Encounter Date: 03/07/21 2:36 PM Nutrition Assessment and Plan: Patient is a 25 y.o. female. Admit Dx: ALTERED MENTAL STATUS, UNSPECIFIED ALTERED MENTAL STATUS TYPE (PRIMARY ENCOUNTER DIAGNOSIS) DIABETIC KETOACIDOSIS WITH COMA ASSOCIATED WITH TYPE 1 DIABETES MELLITUS (CMS/HCC) ([facility]). Admitted on 03/04/2021, current LOS is 3 days. Pediatric Nutrition Screen What diet do you follow at home?: Low carbohydrate Adult Malnutrition Scoring Tool (MST) What diet do you follow at home?: Low carbohydrate Have You Recently Lost Weight Without Trying?: No Have you been eating poorly because of a decreased appetite?: Yes (last couple of days) Malnutrition Screening Tool (MST) Score: 1 Current diet order: Adult Diet Restricted; Consistent Carbohydrate Pt intake is inadequate. PO intakes: ice chips-25% Supplement Order: N/A . Noted bedtime snack given. ASSESSMENT: Nursing reports patient may go home this evening if her potassium level increases. She had DKA d/t not feeling well and only eating ice chips. Pt educated today by Alejandrina Sommer The supervisor cigar making machine. RD to add Glucerna to meals and add high potassium food choices to Meals. Nutrition Diagnosis 1: Altered nutrition-related laboratory values (PMHX: Gastroparesis, DKA, Noncompliance, Cannabonoid Hyperemesis . Discussed patient with her nurse, her potassium levels are low. They gave her medication to increase it today. Pt has also ordered banana, potatoes + tomatoes.-which are high potassium) Related to: Chronic illness/injury, Altered mental status, Psychologic issue Evidenced by: Lab abnormality, PO under 50% Interventions: Encouragement, Medical food supplement, Meals and snacks, [place] diet preferences within the limits of nutrition care order Monitoring and Evaluation: Blood glucoses, Discharge plans, Plan of care, Labs, PO intake, Food preferences, Weight changes, Supplement tolerance ?? Goals: Adequate nutrition to meet estimated needs by next assessment, Other (comment) (Provide high potassium rich foods and Glucerna with meals.) Recommendations: Send Banana or potato with meals (to increase potassium). Nutrition Diagnosis 2: Inadequate oral intakeRelated to: Loss of appetite, Altered mental status, Psychologic issueEvidenced by: PO under 50% Interventions: Encouragement, Medical food supplement Monitoring and Evaluation: Supplement tolerance, Plan of care, Discharge plans, PO intake, Blood glucoses Goals: Tolerance of medical food supplement by next assessment Recommendations: Glucerna with meals. Wt Readings from Last 10 Encounters: 03/05/21 66 kg (145 lb 8.1 oz) 11/16/20 73.5 kg (162 lb) 11/17/20 73.5 kg (162 lb 0.6 oz) 03/12/20 72.6 kg (160 lb) 03/07/20 73.9 kg (163 lb) 12/01/19 75.9 kg (167 lb 5.3 oz) 06/16/19 61 kg (134 lb 7.7 oz) 04/26/19 59.7 kg (131 lb 9.8 oz) 04/24/19 59.8 kg (131 lb 13.4 oz) 03/24/19 59 kg (130 lb 1.1 oz) Estimated needs: ?? Total Kcal/kg Estimated Needs : 1584 based on Kcal/k. Type of Weight Used for Estimated Kcals: Current ?? MS Total Energy Needs: 1584 kcal using Activity Factor: 1.1 ?? DEBORAH State Total Energy Needs + Fever Factor: 1584 ?? Total Protein Estimated Needs (gm): 66 Protein Needs Based on g/k.0 Type of Weight Used for Estimated Protein : Current. ?? Total Fluid Estimated Needs: 1584 Fluid Needs Based on : 1 ml/kcal. Objective Anthropometrics Weight: 66 kg (145 lb 8.1 oz) Admission Weight : 62.7 kg Weight Change: 3.30 kg (7.27 lbs) IBW/kg (Calculated) : 49.9 kg Height: 157.5 cm (5' 2 ) Weight in (lb) to have BMI = 25: 136.4 BMI (Calculated): 26.6 3 Day I/O Summary 03/050 - 03/07 659 In: 205 [P.O.:200; I.V.:5] Out: 900 [Urine:900] Temp: 36.3 ??C (97.3 ??F) Past Medical History: Diagnosis Date ??? Depression ??? Diabetes mellitus (HCC) T1DM ??? HX OTHER MEDICAL 2011 Diabetes mellitus, type 1 ??? Miscarriage Medications and Lab Review: Scheduled Meds: enoxaparin, 40 mg, subcutaneous, Daily-2100 famotidine, 20 mg, oral, BID insulin glargine, 0.15 Units/kg, subcutaneous, Q12H BOB insulin lispro, 0-4 Units, subcutaneous, Nightly insulin lispro, 0-5 Units, subcutaneous, TID with meals insulin lispro, 0.05 Units/kg, subcutaneous, TID with meals Continuous Infusions: Sodium Date Value Ref Range Status 03/07/2021 132 (L) 135 - 145 mmol/L Final Potassium, pl Date Value Ref Range Status 03/07/2021 3.0 (Critical) 3.3 - 4.9 mmol/L Final Comment: Critical Result called to and read back by paulette LAWTON, DATE: 2021-03-07 08:09:51 BY: paulina leigh BUN Date Value Ref Range Status 03/07/2021 15 8 - 25 mg/dL Final Creatinine Date Value Ref Range Status 03/07/2021 0.36 (L) 0.60 - 1.10 mg/dL Final Albumin Date Value Ref Range Status 03/07/2021 3.6 3.5 - 5.0 g/dL Final Calcium Date Value Ref Range Status 03/07/2021 8.5 8.5 - 10.3 mg/dL Final Lab Results Component Value Date HGBA1C 8.4 (H) 11/29/2019 POC Glucose: Results for KARINA MENJIVAR ( ) as of 03/07/2021 14:35 Ref. Range 03/07/2021 02:12 03/07/2021 06:32 03/07/2021 07:17 03/07/2021 07:27 03/07/2021 11:11 Glucose Latest Ref Range: 70 - 199 mg/dL 223 (H) Glucose, POC Latest Ref Range: 71 - 98 mg/dL 96 193 (H) 200 (H) 291 (H) Nursing Assessment: Last BM Date: 03/03/21 Bowel Sounds (All Quadrants): Hypoactive Emesis Assessment Emesis Color/Appearance: Green, Bilious Teodoro Scale Score: 21 Skin Integrity: Intact Nutrition Follow-Up : 03/10/[address],LDN * Alejandrina Gli - 03/07/2021 12:15 PM CDT Karina Menjivar [id number] Dominic Camara MD Pre-Education Assessment Visit Type: Initial Introduction: ID verified, Alert/ oriented x 4, Education provided with patient approval, Patient present and able to participate Treatment Prior To Admission: Insulin, Blood glucose monitoring Knowledge Base: Experienced Home Testing: Greater than 2 times per day Adherence To: Insulin regimen, Blood Glucose Testing Regimen Exercise Habits: Active Hypoglycemia: Hardly ever Home Supplies: No assistance needed Diabetes Management Education Provided: Please see the Patient Education Activity Patient seen as requested for diabetes education. Patient awake and agreeable to diabetes discussion. Patient stated she has been managing her diabetes at home with no problems. She stated she's recently been feeling ill and was only eating ice chips. Patient stated that she was checking her blood sugar and taking her insulin during this time. Reviewed sick day management with patient, discussed t he importance of checking her blood sugar, taking her medications as prescribed, and staying hydrated while sick. Patient voiced understanding. Patient stated she had no questions or needs at this time. quarter doper phone number left with patient and instructed her to call if she has any questions. Alejandrina [employer] 03/07/2021 12:16 PM * Jazmin Tate [facility] - 03/07/2021 8:16 AM CDT Electrolyte monitoring performed by pharmacy on labs from 03/07 727 (date & time), Na+=132 K+=3 Mg+ and Phos=no results Potassium Chloride 40 meq oral x 1 dose replacement ordered for K+=2.9-3.3. Pharmacy will continue to follow daily. Thank you, Jazmin Tate [facility] Pharmacy department * Kisha Holland MD - 03/06/2021 8:00 PM CDT General Medicine Daily Progress SUBJECTIVE Chief complaint: DM T1 with DKA Interval History: No acute events. Afebrile. Reports mild nausea and poor appetite. Able to tolerate po, denies emesis or abdominal pain. Afebrile. Labs remarkable of hypokalemia that was repleted. OBJECTIVE Vitals: 24hr Min/Max: Temp Min: 36.2 ??C (97.1 ??F) Max: 37.1 ??C (98.8 ??F) Pulse Min: 77 Max: 118 BP Min: 111/68 Max: 132/102 Resp Min: 11 Max: 20 SpO2 Min: 96 % Max: 100 % Most Recent : Vitals: 03/06/21 1820 BP: 128/74 Pulse: 117 Resp: 12 Temp: 36.5 ??C (97.7 ??F) SpO2: 100% I/O last 2 completed shifts: In: 105 [P.O.:100; I.V.:5] Out: 900 [Urine:900] No intake/output data recorded. Physical Exam: Eyes: EOMI, ZORAIDA, sclare non icteric Neck: supple, no nuchal ridigity, no gross carotid bruits appreciated Pharynx: No gross oral lesion, tongue midline, mucosa moist Lungs CTA Heart: [id number], no significant murmur or gallop Abd: +BS, Non Tender, Non distended, No gross hepatomegaly Lower Ext: No gross edema, pedal artery pulses are palpable bilaterally Neuro: No new deficits appreciated Musculoskeletal: no gross joint erythema, edema, tenderness Skin: No new change Lab/Current Medication Review: Recent Results (from the past 24 hour(s)) POCT glucose Collection Time: 03/05/21 9:06 PM Result Value Ref Range Glucose, POC 161 (H) 71 - 98 mg/dL POCT glucose Collection Time: 03/06/21 1:04 AM Result Value Ref Range Glucose, POC 107 (H) 71 - 98 mg/dL Comprehensive metabolic panel Collection Time: 03/06/21 3:35 AM Result Value Ref Range Sodium 136 135 - 145 mmol/L Potassium, pl 3.3 3.3 - 4.9 mmol/L Chloride 98 97 - 110 mmol/L CO2 25 22 - 32 mmol/L Anion gap 13 2 - 15 mmol/L BUN 16 8 - 25 mg/dL Creatinine 0.31 (L) 0.60 - 1.10 mg/dL Glucose 162 70 - 199 mg/dL Calcium 8.8 8.5 - 10.3 mg/dL Bilirubin, total 0.9 0.1 - 1.2 mg/dL Protein, pl 5.5 (L) 6.5 - 8.5 g/dL Albumin 3.5 3.5 - 5.0 g/dL Alk phos 79 40 - 130 Units/L ALT 19 7 - 45 Units/L AST 26 10 - 45 Units/L CBC with auto differential Collection Time: 03/06/21 3:35 AM Result Value Ref Range WBC 6.6 3.8 - 9.9 K/cumm Hgb 10.9 (L) 11.9 - 15.5 g/dL Hct 33.6 (L) 35.6 - 45.5 % Plt 292 150 - 400 K/cumm MPV 9.6 9.1 - 12.3 fL RBC 4.05 3.90 - 5.20 M/cumm MCV 83.0 81.3 - 96.4 fL MCH 26.9 (L) 27.1 - 33.3 pg MCHC 32.4 32.3 - 35.7 g/dL RDW CV 16.4 (H) 11.1 - 14.9 % RDW SD 49.9 (H) 35.7 - 48.1 fL NRBC abs 0.00 0.00 - 0.01 K/cumm Differential, auto Collection Time: 03/06/21 3:35 AM Result Value Ref Range Neutrophil abs 4.6 1.7 - 6.5 K/cumm Imm gran abs 0.0 0.0 - 0.1 K/cumm Lymphocyte abs 1.0 0.8 - 3.3 K/cumm Monocyte abs 0.9 (H) 0.2 - 0.8 K/cumm Eosinophil abs 0.0 0.0 - 0.5 K/cumm Basophil abs 0.0 0.0 - 0.1 K/cumm Neutrophil pct 70.3 % Imm gran pct 0.6 % Lymphocyte pct 14.8 % Monocyte pct 13.8 % Eosinophil pct 0.2 % Basophil pct 0.3 % eGFR Collection Time: 03/06/21 3:35 AM Result Value Ref Range eGFR 159 mL/min/1.73 m2 POCT glucose Collection Time: 03/06/21 7:25 AM Result Value Ref Range Glucose, POC 200 (H) 71 - 98 mg/dL POCT glucose Collection Time: 03/06/21 12:20 PM Result Value Ref Range Glucose, POC 159 (H) 71 - 98 mg/dL POCT glucose Collection Time: 03/06/21 5:16 PM Result Value Ref Range Glucose, POC 86 71 - 98 mg/dL ECG 12 lead Result Date: 03/04/2021 Narrative: Vent Rate: 156 bpm RR Interval: 384 msec HI Interval: 66 msec QRS Duration: 78 msec QT Interval: 248 msec QTC Interval: 336 msec P-R-T [place]: 144 - 151 - 156 degrees Sinus TACHYCARDIA WITH SHORT HI INTERVAL, POSSIBLE ectopic Limb lead reversal Electronically Signed By: Dr Mann Gonzalez XR Chest 1 Vw Portable Result Date: 03/04/2021 Narrative: EXAM DESCRIPTION: XR CHEST 1 VIEW REASON FOR STUDY: Acute altered mental status in a patient with hyperglycemia (blood glucose greater than 600 on fingerstick) and patient's mother unsure if patient took insulin last night. Patient reportedly somnolent. No provided history of trauma. No provided chest complaints, though patient's boyfriend reportedly with COVID-19 infection. TECHNIQUE:Frontal radiographic view of the chest acquired. COMPARISON: Chest radiograph 11/15/2020 03/13/2021FINDINGS: LUNGS/PLEURA: No focal consolidation. No pneumothorax. No pleural effusion. HEART/MEDIASTINUM: Heart size is normal. Normal mediastinal and hilar contours. HARDWARE/LINES/TUBES: None the chest. Bilateral dumbbell type nipple piercings. BONES: No acute abnormality. OTHER: No other significant finding. IMPRESSION: 1. No radiographic evidence of acute cardiopulmonary process. 2. Chest radiography is insensitive for the detection of typical radiographic features of COVID-19 and should notreplace specific viral testing. THIS IS AN ELECTRONICALLY VERIFIED FINAL REPORT 03/04/2021 7:18 AM -Electronically signed by Vasquez Castellano M.D. DESTINY: DESTINY Report ID: [id number] Reading Location: [id number] Current Facility-Administered Medications Medication Dose Route Frequency Provider Last Rate Last Admin ??? acetaminophen (TYLENOL) tablet 650 mg 650 mg oral Q4H PRN Dominic Camara MD ??? dextrose gel in packet 15 g 15 g oral Q15 Min PRN Dominic Camara MD Or ??? dextrose (D10W) 10% bolus 250 mL 250 mL intravenous Q15 Min PRN Dominic Camara MD ??? enoxaparin (LOVENOX) syringe 40 mg 40 mg subcutaneous Daily-2100 Dominic Camara MD ??? famotidine (PEPCID) injection 20 mg 20 mg intravenous Q12H [facility] Dominic Camara MD ??? glucagon injection 1 mg 1 mg intramuscular Q30 Min PRN Dominic Camara MD ??? insulin glargine (LANTUS, BASAGLAR, SEMGLEE) 100 unit/mL (3 mL) pen injection 10 Units 0.15 Units/kg subcutaneous Q12H [facility] Dominic Camara MD 10 Units at 03/06/21 0758 ??? insulin lispro (HumaLOG, ADMELOG) 100 unit/mL pen injection 0-4 Units 0-4 Units subcutaneous Nightly Dominic Camara MD ??? insulin lispro (HumaLOG, ADMELOG) 100 unit/mL pen injection 0-5 Units 0-5 Units subcutaneous TID with meals Dominic Camara MD 1 Units at 03/06/21 1222 ??? insulin lispro (HumaLOG, ADMELOG) 100 unit/mL pen injection 3 Units 0.05 Units/kg subcutaneous TID with meals Dominic Camara MD 3 Units at 03/06/21 1222 ??? ondansetron (ZOFRAN) injection 4 mg 4 mg intravenous Q4H PRN Dominic Camara MD A/P: DM type 1 insulin dependent -Frequent episodes of DKA in light of n/v 2/2 cannabis use -On 15 units basal coverage + ss at home -Admitted to the ICU for DKA, anion gap now closed and blood glucose well controlled -We will continue with insulin glargine 10 units and close monitor on ss -quarter doper counseling -Zofran prn for n/v -Need close outpatient follow up with endo Cannabinoid abuse with episodes of cyclic vomiting -Counseling on cessation provided MDM- moderate Principal Problem: Altered mental status Resolved Problems: No resolved hospital problems. Voice recognition software [id number] Fluency Direct was used dictate and transcribe this document. Professor Of Sociology variances may occur. Despite proofreading, typographical errors may occur. Kisha Holland MD 03/06/2021 8:00 PM * Nelsy Espinal, [facility] - 03/06/2021 3:52 PM CDT An order to initiate electrolyte repletion by pharmacy has been received from Dr. Holland. IV or PO repletion will be ordered [...] every other day. Thank you, Nelsy Espinal RPh [facility] Pharmacy department * Dominic Camara MD - 03/05/2021 11:14 AM CDT Progress Note Critical care Subjective: Awakes Chief complaint of DKA Interval History: 25-year-old female history of diabetes mellitus recurrent admissions for hyperglycemia DKA also with chronic cannabis use and hyperemesis gastro paresis previous upper endoscopy with findings of esophagitis also medically noncompliant with previous AMA hospital discharges admitted with DKA placed on insulin infusion normal saline preload. Now on glucose containing intravenous solution ready to transition to subcutaneous sliding scale stable nonfocal not very cooperative advance diet. Review of Systems All other systems reviewed and are negative. Medications: enoxaparin, 40 mg, subcutaneous, Daily-2100 famotidine, 20 mg, intravenous, Q12H BOB insulin glargine, 0.15 Units/kg, subcutaneous, Nightly insulin lispro, 0-4 Units, subcutaneous, Nightly insulin lispro, 0-5 Units, subcutaneous, TID with meals insulin lispro, 0.05 Units/kg, subcutaneous, TID with meals Subjective: Vitals: 24hr Min/Max: Temp Min: 36.1 ??C (97 ??F) Max: 37.1 ??C (98.8 ??F) Pulse Min: 115 Max: 152 BP Min: 92/65 Max: 143/87 Resp Min: 10 Max: 36 SpO2 Min: 97 % Max: 100 % Date 03/04/21699 - 03/05/2165803/05/21699 - 03/06/21 0659 Shift 9315-9081 7123-0486 24 Hour Total 3824-3885 3270-4839 24 Hour Total INTAKE I.V.(mL/kg) 1062(16.9) 1672(25.3) 2734(41.4) 472(7.2) 472(7.2) IV Piggyback 1784 1784 Shift Total(mL/kg) 2846(45.4) 1672(25.3) 4518(68.5) 472(7.2) 472(7.2) OUTPUT Urine(mL/kg/hr) 670(0.9) 685(0.9) 1355(0.9) Shift Total(mL/kg) 670(10.7) 685(10.4) 1355(20.5) NET 2176 987 3163 472 472 Weight (kg) 62.7 66 66 66 66 66 Physical Exam Vitals and nursing note reviewed. Constitutional: Appearance: She is well-developed. HENT: Head: Normocephalic. Eyes: Extraocular Movements: Extraocular movements intact. Cardiovascular: Rate and Rhythm: Normal rate. Pulmonary: Effort: Pulmonary effort is normal. Abdominal: Palpations: Abdomen is soft. Musculoskeletal: Cervical back: Neck supple. Skin: General: Skin is warm. Neurological: Mental Status: Mental status is at baseline. 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 Critical care time was exclusive of separately billable procedures, treating other patients and teaching time. Dominic Camara MD documented in this encounter H&P Notes * Dominic Camara MD - 03/04/2021 5:47 PM CDT Consult Note Patient Name: Karina Menjivar Date of : 1995 Primary Physician: Carrie Joseph PA Requesting Physician: Emergency department Admission Date: 03/04/2021 Length of Stay: 0 Chief Complaint Altered Mental Status DKA HPI Karina Menjivar is a 25 y.o. female seen in consultation for nausea vomit diabetic ketoacidosis. The patient is admitted again as recurrence for hyperglycemia diabetic ketoacidosis with significant anion gap associated with nausea vomit hyperemesis. She lives at home with family there is no history of tobacco smoking or alcohol however she uses frequently cannabis with induced hyperemesis has diabetes mellitus with gastro paresis anxiety depression previous EGD showing esophagitis. She was placed on insulin infusion normal saline transferred to ICU where she will be transitioned to crystalloid with glucose treated with Zofran for nausea. Past Medical History Past Medical History: Diagnosis [...] unit/mL (3 mL) pen for injection Inject 18 Units under the skin nightly ??? insulin lispro (HumaLOG) 100 unit/mL injection Inject under the skin 3 (three) times a day before meals Uses per sliding scale 1 unit per every 8 grams of carb ??? insulin syringe-needle U-100 0.3 mL 31 gauge x 5/16 syringe 1 Syringe ??? OneTouch Verio test strips strip USE 1 STRIP TO CHECK GLUCOSE 4 TIMES DAILY ??? TechLITE Insulin Syr Half Unit 0.3 mL 31 gauge x 5/16 syringe USE ONE NEW SYRINGE 4 TIMES Allergies No Known Allergies Family History Family History Problem Relation Age of Onset ??? No Known Problems Mother ??? Autism Brother Social History Social [...] ??? Drug use: Not Currently Types: Marijuana ??? Sexual activity: Yes Partners: Male Other Topics Concern ??? Not on file Social History Narrative ??? Not on file Social Determinants of Health Financial Resource Strain: ??? Difficulty of Paying Living Expenses: Not on file Food Insecurity: ??? Worried About Running Out of Food in the Last Year: Not on file ??? Ran Out of Food in the Last Year: Not on file Transportation Needs: ??? Lack of Transportation (Medical): Not on file ??? Lack of Transportation (Non-Medical): Not on file Physical Activity: ??? Days of Exercise per Week: Not on file ??? Minutes of Exercise per Session: Not on file Stress: ??? Feeling of Stress : Not on file Social Connections: ??? Frequency of Communication with Friends and Family: Not on file ??? Frequency of Social Gatherings with Friends and Family: Not on file ??? Attends [employer] Services: Not on file ??? Active Member of Clubs or Organizations: Not on file ??? Attends Club or Organization Meetings: Not on file ??? Marital Status: Not on file Intimate Partner Violence: ??? Fear of Current or Ex-Partner: Not on file ??? Emotionally Abused: Not on file ??? Physically Abused: Not on file ??? Sexually Abused: Not on file ROS Review of Systems All other systems reviewed and are negative. Objective Vitals: 03/04/21 1400 03/04/21 1430 03/04/21 1500 03/04/21 1615 BP: 119/77 128/79 104/56 132/84 BP Location: Left arm Left arm Left arm Patient Position: Lying Lying Lying Pulse: (!) 141 (!) 145 (!) 145 (!) 141 Resp: 18 22 17 12 Temp: TempSrc: SpO2: 100% 100% 99% 99% Weight: Height: Physical Exam Vitals and nursing note reviewed. Constitutional: Appearance: She is well-developed. HENT: Head: Normocephalic. Eyes: Extraocular Movements: Extraocular movements intact. Cardiovascular: Rate and Rhythm: Regular rhythm. Heart sounds: Normal heart sounds. Pulmonary: Effort: Pulmonary effort is normal. Abdominal: Palpations: Abdomen is soft. Musculoskeletal: General: Normal range of motion. Cervical back: Neck supple. Neurological: Mental Status: She is alert. Cranial Nerves: No cranial nerve deficit. Diagnostics Recent Results (from the past 24 hour(s)) Blood gas, arterial Collection Time: 03/04/21 6:46 AM Result Value Ref Range pH, Art 7.12 (Critical) 7.35 - 7.45 PCO2, Arterial 11 (Critical) 35 - 45 mmHg PO2, Arterial 133 (H) 83 - 108 mmHg HCO3 Art (Calculated) 4 (L) 20 - 30 mmol/L BE, art -26 mmol/L O2 Sat Art (Measured) 98 (H) 90 - 95 % POCT glucose Collection Time: 03/04/21 6:48 AM Result Value Ref Range Glucose, POC 488 (Critical) 71 - 98 mg/dL CBC with auto differential Collection Time: 03/04/21 7:05 AM Result Value Ref Range WBC 22.5 (H) 3.8 - 9.9 K/cumm Hgb 13.4 11.9 - 15.5 g/dL Hct 44.0 35.6 - 45.5 % Plt 674 (H) 150 - 400 K/cumm MPV 9.3 9.1 - 12.3 fL RBC 5.00 3.90 - 5.20 M/cumm MCV 88.0 81.3 - 96.4 fL MCH 26.8 (L) 27.1 - 33.3 pg MCHC 30.5 (L) 32.3 - 35.7 g/dL RDW CV 17.3 (H) 11.1 - 14.9 % RDW SD 55.4 (H) 35.7 - 48.1 fL NRBC abs 0.00 0.00 - 0.01 K/cumm Comprehensive metabolic panel Collection Time: 03/04/21 7:05 AM Result Value Ref Range Sodium 135 135 - 145 mmol/L Potassium, pl 5.6 (H) 3.3 - 4.9 mmol/L Chloride 96 (L) 97 - 110 mmol/L CO2 3 (L) 22 - 32 mmol/L Anion gap 36 (H) 2 - 15 mmol/L BUN 55 (H) 8 - 25 mg/dL Creatinine 1.51 (H) 0.60 - 1.10 mg/dL Glucose 601 (Critical) 70 - 199 mg/dL Calcium 10.7 (H) 8.5 - 10.3 mg/dL Bilirubin, total 0.8 0.1 - 1.2 mg/dL Protein, pl 8.0 6.5 - 8.5 g/dL Albumin 4.9 3.5 - 5.0 g/dL Alk phos 124 40 - 130 Units/L ALT 14 7 - 45 Units/L AST 14 10 - 45 Units/L Urinalysis reflex to microscopic and culture Urine, indwelling catheter Collection Time: 03/04/21 7:05 AM Specimen: Urine, indwelling catheter Result Value Ref Range Color, ur Yellow Yellow Clarity, ur Clear Clear Specific gravity, ur 1.024 1.003 - 1.030 pH, urine 5.0 Protein, ur ql 1+ (A) Negative Glucose, ur ql 4+ (A) Negative Ketones, ur 3+ (A) Negative Bilirubin, ur Negative Negative Blood, ur Negative Negative Urobilinogen, ur <2.0 <2.0 mg/dL Nitrite, ur Negative Negative Leukocyte esterase, ur Negative Negative UA reflex comment Reflex to microscopic UA will be performed. Differential, auto Collection Time: 03/04/21 7:05 AM Result Value Ref Range Neutrophil abs 18.8 (H) 1.7 - 6.5 K/cumm Imm gran abs 0.3 (H) 0.0 - 0.1 K/cumm Lymphocyte abs 0.9 0.8 - 3.3 K/cumm Monocyte abs 2.4 (H) 0.2 - 0.8 K/cumm Eosinophil abs 0.0 0.0 - 0.5 K/cumm Basophil abs 0.1 0.0 - 0.1 K/cumm Neutrophil pct 83.7 % Imm gran pct 1.5 % Lymphocyte pct 4.0 % Monocyte pct 10.5 % Eosinophil pct 0.0 % Basophil pct 0.3 % Urinalysis, microscopic only Collection Time: 03/04/21 7:05 AM Result Value Ref Range WBC, ur 0-5 0 - 5 /HPF RBC, ur 0-2 0 - 2 /HPF Epithelial cells, squamous, ur 1-5 0 - 5 /HPF Mucous, ur Present (A) Hyaline casts, ur 1-5 0 - 10 /LPF Culture Reflex Comment Reflex conditions for urine culture (WBC >10) not met. eGFR Collection Time: 03/04/21 7:05 AM Result Value Ref Range eGFR 48 mL/min/1.73 m2 POCT glucose Collection Time: 03/04/21 7:36 AM Result Value Ref Range Glucose, POC 457 (Critical) 71 - 98 mg/dL Influenza A/B, RSV, and COVID-19 PCR Nasopharyngeal Collection Time: 03/04/21 7:55 AM Specimen: Nasopharyngeal Result Value Ref Range COVID-19 RNA Negative Negative Influenza A RNA Negative Negative Influenza B RNA Negative Negative RSV RNA Negative Negative First COVID-19 test? No Employeed in healthcare? No status? No Group care resident? No Hospitalized? Yes Is patient in ICU? Yes Symptomatic as defined by CDC? Unknown POCT glucose Collection Time: 03/04/21 9:10 AM Result Value Ref Range Glucose, POC 227 (H) 71 - 98 mg/dL POCT hCG, urine Collection Time: 03/04/21 9:17 AM Result Value Ref Range HCG, ur, POC Negative Lot Number [id number] QC Backgroud Clear Acceptable QC Control Line Acceptable POCT glucose Collection Time: 03/04/21 10:50 AM Result Value Ref Range Glucose, POC 201 (H) 71 - 98 mg/dL POCT glucose Collection Time: 03/04/21 11:49 AM Result Value Ref Range Glucose, POC 232 (H) 71 - 98 mg/dL POCT glucose Collection Time: 03/04/21 1:09 PM Result Value Ref Range Glucose, POC 166 (H) 71 - 98 mg/dL POCT glucose Collection Time: 03/04/21 2:10 PM Result Value Ref Range Glucose, POC 147 (H) 71 - 98 mg/dL POCT glucose Collection Time: 03/04/21 3:35 PM Result Value Ref Range Glucose, POC 120 (H) 71 - 98 mg/dL POCT glucose Collection Time: 03/04/21 4:28 PM Result Value Ref Range Glucose, POC 97 71 - 98 mg/dL POCT glucose Collection Time: 03/04/21 5:19 PM Result Value Ref Range Glucose, POC 95 71 - 98 mg/dL No results found. Results for orders placed or performed during the hospital encounter of 03/29/18 ECG 12 lead Result Value Ref Range Patient age 22 years Interpretation Text SINUS TACHYCARDIABORDERLINE RIGHT AXIS DEVIATIONABNORMAL RHYTHM ECGPREVIOUS TRACIN03/30/2018 02.13 Ventricular Rate EKG/Min 108 /min P Wave Duration 109 ms QRS-Interval (MSEC) 77 ms HI-Interval (MSEC) 130 ms QT Interval 316 ms QTc 400 ms QTC Interval ms P [place] 72 deg QRS [place] 93 deg T [place] 44 deg Results for orders placed during the hospital encounter of 11/26/19 Transthoracic Echo Complete W Doppler/CF Narrative [address] [address] Echocardiogram Report Patient Name: KARINA MENJIVAR : 1995 Study Date: 11/29/2019 10:15:58 AM Gender: F Tech: Location: [place] [address] Ref.Provider: ROBERTO CARLOS HELLER Height(Cm): 163 BSA: [...] 2019-11-29 11:03:36 CDT Problem List Principal Problem: Altered mental status Assessment/Plan 25 y.o. female seen in consultation for diabetic ketoacidosis hyperemesis. PLAN: ICU admission observation GI protection prophylaxis Glycemia control insulin infusion Preload with crystalloid DVT precautions Nausea control Pulmonary toilet Serial labs Thanks for allowing us to see this patient we will follow in the ICU as needed. Critical Care Time: I have spent 65 minutes in full attendance with this critically ill patient making frequent reassessments and decisions regarding this patient's complex medical care. Critical care time was exclusive of separately billable procedures, treating other patients and teaching time. Dominic Camara MD 03/04/2021 5:47 PM documented in this encounter Nursing Notes * Marisela Augustine RN - 03/07/2021 7:30 PM CDT Discharge instructions given to the patient., verbalized understanding. Patient was wheeled out of the building by tech per wheelchair at 1800 to patient's personal vehicle. All belongings brought w/patient. No other concerns. * Kathryn Nicole RN - 03/06/2021 6:39 PM CDT Pt arrived via wheelchair from ICU. Pt resting in bed with no complaints. Pt was given ice chips and ice water. * Bree Marino RN - 03/05/2021 6:51 PM CDT End of shift summary: Neuro: Drowsy, follows commands, afebrile Resp: O2 saturation >94 on room air, no signs of respiratory distress CV: NSR-ST on monitor, no edema noted, map >75 GI/: Kaur output 800, yellow, cloudy, and hazy, no bm this shift. Poor appetite, restricted consistent card diet, tolerating ice chips, nauseated x 1 Other: Monitor BG per orders * Arlen Hanson RN - 03/05/2021 3:59 PM CDT Spoke with pts nurse and charge nurse. To hold PICC placement for now. Insulin drip no longer infusing. * Bree Marino RN - 03/05/2021 7:10 AM CDT Received report from RN, reviewed patient summary, past medical history, medications, current labs,and plan of care. Upon entering the room resting in bed, A&Ox4, on room air, ST on the monitor,IV infusing without complications, kaur intact to gravity, assessment as documented. Discuss plan of care, answered questions appropriately, no signs of distress noted, denies pain at this time, call lopez in reach, bed low/locked. documented in this encounter ED Notes * Lex Narvaez MD - 03/04/2021 7:06 AM CDT Chief Complaint Patient presents with ??? Altered Mental Status HPI 03/04/2021 6:28 AM Karina Menjivar is a 25 y.o. female nonsmoker with a h/o IDDM, DKA, diabetic gastroparesis, tachycardia, and depression who arrived via EMS for AMS. Per EMS, patient's mother reported altered LOC. Shestates she is unsure if the patient took evening insulin last night. EMS reports patient is currently staying with her mother because patient's boyfriend was recently dx with COVID-19. HPI limited secondary to patient's AMS. Per chart review: Patient was admitted to [facility] 11/15/2020-11/18/2020 for DKA. Patient left AMA. Patient was admitted to [facility] 03/20/2020-03/23/2020 for DKA. Patient was admitted to [facility] 03/12/2020-03/16/2020 for DKA. Patient left AMA. History provided by: EMS personnel Past Medical History: Diagnosis Date ??? Depression ??? Diabetes mellitus (HCC) T1DM ??? HX OTHER MEDICAL 2011 Diabetes mellitus, type 1 ??? Miscarriage Past Surgical History: Procedure Laterality Date ??? SECTION, CLASSIC 2017 ??? TONSILLECTOMY Bilateral 2002 Family History Problem Relation Age of Onset ??? No Known Problems Mother ??? Autism Brother Social History Tobacco Use ??? Smoking status: Never Smoker ??? Smokeless tobacco: Never Used Substance Use Topics ??? Alcohol use: Not Currently ??? Drug use: Not Currently Types: Marijuana Review of Systems Review of Systems Unable to perform ROS: Mental status change Physical Exam ED Triage Vitals Temp Pulse Resp BP SpO2 03/04/21 0634 03/04/21 0630 03/04/21 0630 03/04/21 0630 03/04/21 0630 36 ??C (96.8 ??F) (!) 157 19 112/68 90 % Temp src Heart Rate Source Patient Position BP Location FiO2 (%) 03/04/21 0634 03/04/21 0830 03/04/21 0830 03/04/21 0830 -- Temporal Monitor Lying Left arm Physical Exam Vitals and nursing note reviewed. Constitutional: Appearance: Normal appearance. Comments: Obtunded. HENT: Head: Normocephalic. Nose: Nose normal. Eyes: Extraocular Movements: Extraocular movements intact. Conjunctiva/sclera: Conjunctivae normal. Cardiovascular: Rate and Rhythm: Regular rhythm. Tachycardia present. Pulmonary: Effort: Pulmonary effort is normal. Abdominal: General: Abdomen is flat. Palpations: Abdomen is soft. Musculoskeletal: General: Normal range of motion. Cervical back: Normal range of motion. Skin: General: Skin is warm and dry. Coloration: Skin is pale. Neurological: General: No focal deficit present. Mental Status: She is alert. Procedures Labs Reviewed URINALYSIS AND REFLEX TO MICROSCOPIC AND CULTURE - Abnormal Result Value Color, ur Yellow Clarity, ur Clear Specific gravity, ur 1.024 pH, urine 5.0 Protein, ur ql 1+ (*) Glucose, ur ql 4+ (*) Ketones, ur 3+ (*) Bilirubin, ur Negative Blood, ur Negative Urobilinogen, ur <2.0 Nitrite, ur Negative Leukocyte esterase, ur Negative UA reflex comment Reflex to microscopic UA will be performed. Narrative: Urine pH is affected by diet, medications, systemic acid-base disturbances, and renal tubular function. pH may affect urinary stone formation. For example, urine pH below 6.0 may help reduce the tendency for calcium phosphate stones and pH greater than 6.0 may reduce the tendency for uric acid stone formation. Source: [employer].Last revised 05-13-2017 BLOOD GAS, ARTERIAL - Abnormal pH, Art 7.12 (*) PCO2, Arterial 11 (*) PO2, Arterial 133 (*) HCO3 Art (Calculated) 4 (*) BE, art -26 O2 Sat Art (Measured) 98 (*) CBC WITH AUTO DIFFERENTIAL - Abnormal WBC 22.5 (*) Hgb 13.4 Hct 44.0 Plt 674 (*) MPV 9.3 RBC 5.00 MCV 88.0 MCH 26.8 (*) MCHC 30.5 (*) RDW CV 17.3 (*) RDW SD 55.4 (*) NRBC abs 0.00 COMPREHENSIVE METABOLIC PANEL - Abnormal Sodium 135 Potassium, pl 5.6 (*) Chloride 96 (*) CO2 3 (*) Anion gap 36 (*) BUN 55 (*) Creatinine 1.51 (*) Glucose 601 (*) Calcium 10.7 (*) Bilirubin, total 0.8 Protein, pl 8.0 Albumin 4.9 Alk phos 124 ALT 14 AST 14 DIFFERENTIAL AUTO - Abnormal Neutrophil abs 18.8 (*) Imm gran abs 0.3 (*) Lymphocyte abs 0.9 Monocyte abs 2.4 (*) Eosinophil abs 0.0 Basophil abs 0.1 Neutrophil pct 83.7 Imm gran pct 1.5 Lymphocyte pct 4.0 Monocyte pct 10.5 Eosinophil pct 0.0 Basophil pct 0.3 URINALYSIS, MICROSCOPIC ONLY - Abnormal WBC, ur 0-5 RBC, ur 0-2 Epithelial cells, squamous, ur 1-5 Mucous, ur Present (*) Hyaline casts, ur 1-5 Culture Reflex Comment Value: Reflex conditions for urine culture (WBC >10) not met. POCT GLUCOSE DEVICE - Abnormal Glucose, POC 488 (*) POCT GLUCOSE DEVICE - Abnormal Glucose, POC 457 (*) POCT GLUCOSE DEVICE - Abnormal Glucose, POC 227 (*) POCT GLUCOSE DEVICE - Abnormal Glucose, POC 201 (*) POCT GLUCOSE DEVICE - Abnormal Glucose, POC 232 (*) POCT GLUCOSE DEVICE - Abnormal Glucose, POC 166 (*) POCT GLUCOSE DEVICE - Abnormal Glucose, POC 147 (*) POCT HCG, URINE - Normal HCG, ur, POC Negative Lot Number [id number] QC Backgroud Clear Acceptable QC Control Line Acceptable INFLUENZA A/B, RSV, AND COVID-19 PCR COVID-19 RNA Negative Influenza A RNA Negative Influenza B RNA Negative RSV RNA Negative First COVID-19 test? No Employeed in healthcare? No status? No Group care resident? No Hospitalized? Yes Is patient in ICU? Yes Symptomatic as defined by CDC? Unknown Narrative: Reason for testing?->Symptomatic (not immunocompromised) Known exposure to confirmed or suspected COVID-19 case?->No EGFR eGFR 48 BASIC METABOLIC PANEL XR Chest 1 Vw Portable Final Result BP 119/77 (BP Location: Left arm, Patient Position: Lying) Pulse (!) 141 Temp 36 ??C (96.8 ??F)(Temporal) Resp 18 Ht 157.5 cm (5' 2 ) Wt 60.2 kg (132 lb 11.5 oz) LMP 01/03/2020 SpO2 100% BMI 24.27 kg/m?? MDM Number of Diagnoses or Management Options Altered mental status, unspecified altered mental status type: new and requires workup Diabetic ketoacidosis with coma associated with type 1 diabetes mellitus (CMS/HCC) (HCC): new and requires workup Amount and/or Complexity of Data Reviewed Clinical lab tests: ordered and reviewed Tests in the radiology section of CPT??: ordered and reviewed Decide to obtain previous medical records or to obtain history from someone other than the patient:yes (Chart review) Obtain history from someone other than the patient: yes (EMS) Discuss the patient with other providers: yes ([employer]) Independent visualization of images, tracings, or specimens: yes ED Course as of Mar 04 145 Time: 03/04 1318 Comment: Spoke with Dr. Camara who agrees to patient being admitted to ICU. By: Brandan Arana Final diagnoses: Altered mental status, unspecified altered mental status type Diabetic ketoacidosis with coma associated with type 1 diabetes mellitus (CMS/HCC) (HCC) This note is prepared by Brandan Arana, acting as a scribe for Lex Narvaez MD. I electronically signed this note at 2:57 PM on 03/04/2021. I, Lex Narvaez MD, have personally performed the services described in the documentation, reviewed the documentation, as recorded by the scribe in my presence, and it accurately and completely records my words and actions. Lex Narvaez MD 03/04/21 1457 * Seng Jean RN - 03/04/2021 6:38 AM CDT Pt somnolent Seng Jean RN 03/04/21 0638 * Seng Jean RN - 03/04/2021 6:28 AM CDT Presented to the ED via [facility] EMS with reports of Altered LOC, living with mom at this time, because boyfriend has covid. Report that HR 156, bp 111/64, and fingerstick >600. Reported that mom was not sure if pt took evening insulin last night. Upon arrival, pt somnolent, but aware of name, date, but does not know pt was at [place] [facility]. Responds appropriately, but required aggressive agitation to wa ke pt to respond. * Charisma Kaba RN - 03/04/2021 6:26 AM CDT Bed: ED08 Expected date: Expected time: Means of arrival: Comments: [facility] 66 Charisma Kaba, RN 03/04/21 0626 documented in this encounter Miscellaneous Notes * Plan of Care - Marisela Augustine RN - 03/07/2021 3:11 PM CDT Problem: Health Behavior: Goal: Understanding of discharge needs will improve Outcome: Progressing Problem: Activity: Goal: Mobility will [...] to fullest extent possible Outcome: Progressing Problem: Lack of Knowledge: Goal: Ability to state ways to decrease the risk of falls will improve Outcome: Progressing Problem: Safety: Goal: Will remain free from falls Outcome: Progressing Goal: Will remain free from injury from falls Outcome: Progressing Goal: Will remain free from falls and injury in home environment Outcome: Progressing Problem: Activity: Goal: Ability to perform activities of daily living will improve Outcome: Progressing Goal: Will verbalize the importance of balancing [...] Equipment and the Need for Diabetes Identification [facility] Outcome: Progressing Goal: Ability to manage [...] perfusion and functioning will improve Outcome: Progressing Goals: Clinical Goals for the Shift: Patient to remain hemodynamically stable and free from injury. Summary: Patient is A&Ox4. Tachycardic, heart rate around 110 to 116 bpm. Denies chest pain or SOB. Otherwise vital signs WNL. Patient's potassium lvl is 3.0 this morning. Patient refused orderedKCl pill initially, but took it after education. Dr. Holland is aware. Pending lab collection for potassium level follow-up. Patient is hardstick, lab will try again. Patient ambulates to the bathroom w/ no device. Will continue to monitor. * Plan of Care - Adenike Kruger RN - 03/07/2021 1:36 PM CDT CM Initial Assessment Interview Note Information Obtained From: Patient (03/07/21 1130) Admission Source: ED Impression: altered LOC Plan Includes: assessment and DC planning Primary Source of Transportation: Does the patient need discharge transport arranged?: No (03/04/21 8770) Health Insurance Coverage: DOC davila Prescription Coverage: [facility] Pharmacy: [facility] in [place] Primary Care Provider: Carrie Joseph PA Prior to Admission: Primary Caregiver: Self Support System: Spouse/Significant Other, Children Support system contact info (name, phone, availablity): lives with boyfrienrocky Elise and her daughter Home Care Services: No Durable Medical Equipment: None Living Arrangements: Spouse/significant other, Children Type of Residence: Apartment Steps in home? : No steps inside or outside Number of steps outside:: 15 steps (03/04/21 1900) Potential discharge needs include: Dialysis: Behavioral Health Services: Behavioral Health Services: No (03/07/211129) Patient expects to be Discharged to: Private residence, (03/07/211129) Additional Information: DC plan discussed with pt. Goal is to return home with her boyfriend Arik and her daughter. Ride home will be mother or grandmother. Pt is independent of ADLs, drives, works and uses no assistive devices. Barrier to DC is resolution of altered LOC. No needs voiced per pt. Noneeds anticipated. Patient's Identified Problem/Goal Problem: Ensure acute medical needs are met and that patient has a safe discharge plan. Goal: Secure a discharge plan that patient/family are agreeable with and ensure patient has continuum of care. Case management will follow for discharge planning and send referrals as needed. Adenike Kruger RN * Provider Query - Kisha Holland MD - 03/07/2021 5:47 AM CDT Specify the most likely etiology of the confusion and or altered mental status in the medical record and on the form below. ___Acute Delirium (specify below if due to narcotics, other drugs, infection, or post-operative) ___Confusion (specify etiology if known) ___xEncephalopathy, specify type: ___ Alcoholic ___ Anoxic ___ Hepatic w/ coma ___ Hepatic w/o coma ___ Hypertensive __x_ Metabolic ___ Septic ___ Toxic ___ Wernicke???s ___ Other ___Other specify below ___Clinically unable to determine Additional Provider Response: Clinical Indicators/Treatments: 03/04:ER:AMSReport that HR 156, bp 111/64, and fingerstick >600. Reported that mom was not sure if pt took evening insulin last night. Upon arrival, pt somnolent, but aware of name, date, but does not know pt was at [place] [facility]. Responds appropriately, but required aggressive agitation to wake pt to respond.?? Obtunded.??unstable vital signs,?acute delirium ?diabetic ketoacidosis, acute electrolyte derangement, acid-base disturbance and hypo/hyper glycemic control ?? 03/04:History and Physical:25 y.o.??female??seen in consultation for nausea vomit diabetic ketoacidosis.??The patient??is admitted again??as recurrence??for??hyperglycemia diabetic ketoacidosis with significant anion gap associated with nausea vomit hyperemesis.She was placed on insulin infusion norm al saline transferred to ICU where she will be transitioned??to crystalloid with glucose treated with Zofran for nausea. ??diabetic ketoacidosis hyperemesis.AMS. ?03/06:Principal Problem: Altered mental status ??Labs, ICU, Insulin GTT and monitoring of labs and vital signs. Use of terms such as likely, suspected, possible, or probable (associated with a specific diagnosisthat is being evaluated, monitored, or treated as if it exists) are acceptable and can be coded in the inpatient setting when documented at the time of discharge. This documentation will become part of the patient's medical record. Sincerely, Mee Melgar RN, CCDS [phone] * Plan of Care - Shantelle Melvin RN - 03/07/2021 4:36 AM CDT Problem: Health Behavior: Goal: Understanding of discharge needs will improve Outcome: Progressing Problem: Activity: Goal: Mobility will [...] to fullest extent possible Outcome: Progressing Problem: Lack of Knowledge: Goal: Ability to state ways to decrease the risk of falls will improve Outcome: Progressing Problem: Safety: Goal: Will remain free from falls Outcome: Progressing Goal: Will remain free from injury from falls Outcome: Progressing Goal: Will remain free from falls and injury in home environment Outcome: Progressing Problem: Activity: Goal: Ability to perform activities of daily living will improve Outcome: Progressing Goal: Will verbalize the importance of balancing [...] Equipment and the Need for Diabetes Identification [facility] Outcome: Progressing Goal: Ability to manage [...] perfusion and functioning will improve Outcome: Progressing Goals: Clinical Goals for the Shift: VSS, free from falls, free from pain, glucose management Summary: AOX#. Independent. Refused lovenox and pepcid. No PRNs given. * Plan of Care - Kulwant Lantigua RN - 03/06/2021 5:21 PM CDT Problem: Health Behavior: Goal: Understanding of discharge needs will improve Outcome: Progressing Problem: Activity: Goal: Mobility will [...] to fullest extent possible Outcome: Progressing Problem: Lack of Knowledge: Goal: Ability to state ways to decrease the risk of falls will improve Outcome: Progressing Problem: Safety: Goal: Will remain free from falls Outcome: Progressing Goal: Will remain free from injury from falls Outcome: Progressing Goal: Will remain free from falls and injury in home environment Outcome: Progressing Problem: Activity: Goal: Ability to perform activities of daily living will improve Outcome: Progressing Goal: Will verbalize the importance of balancing [...] Equipment and the Need for Diabetes Identification [facility] Outcome: Progressing Goal: Ability to manage [...] perfusion and functioning will improve Outcome: Progressing Goals: Clinical Goals for the Shift: Vitals and labs stable, free from falls and injury, no nausea, blood sugars WNL Summary: Pt is alert, oriented and independent in the room. Pt had no complaints of pain this shift. Vitals and labs have been stable. Pt to move to room G611. Report called to MARY Cheng. Will continue to assess and intervene as appropriate. * Provider Query - Kisah Holland MD - 03/06/2021 1:05 PM CDT Specify a diagnosis that reflects the patient???s lab findings and document in the medical record and on the form below. __x_ Metabolic acidosis ___ Respiratory acidosis ___ Lactic acidosis ___ Mixed metabolic and respiratory acidosis ___ Acidosis, unspecified type ___ Abnormal laboratory findings, inconclusive diagnosis ___ Clinically insignificant abnormal laboratory findings ___ Other, specify below ___ Clinically unable to determine Additional Provider Response: Clinical Indicators/Treatments: 03/04:History and Physical:25 y.o.??female??seen in consultation for nausea vomiting, diabetic ketoacidosis.h/o IDDM, DKA, diabetic??gastroparesis, tachycardia, and depression?The patient??is admitted again??as recurrence??for??hyperglycemia diabetic ketoacidosis with significant anion gap associated with nausea vomit hyperemesis.She was placed on insulin infusion normal saline transferred to ICU where she will be transitioned??to crystalloid with glucose treated with Zofran for nausea. ??diabetic ketoacidosis hyperemesis.AMS. ?? Results for KARINA MENJIVAR ( ) as of 03/06/2021 13:02 Ref. Range 03/04/2021 07:05 03/04/2021 18:00 03/05/2021 07:22 03/06/2021 03:35 CO2 Latest Ref Range: 22 - 32 mmol/L 3 (L) 16 (L) 24 25 Anion gap Latest Ref Range: 2 - 15 mmol/L 36 (H) 14 10 13 Results for KARINA MENJIVAR ( ) as of 03/06/2021 13:02 Ref. Range 03/04/2021 06:46 pH, Art Latest Ref Range: 7.35 - 7.45 7.12 (Critical) PCO2, Arterial Latest Ref Range: 35 - 45 mmHg 11 (Critical) PO2, Arterial Latest Ref Range: 83 - 108 mmHg 133 (H) O2 Sat Art (Measured) Latest Ref Range: 90 - 95 % 98 (H) HCO3 Art (Calculated) Latest Ref Range: 20 - 30 mmol/L 4 (L) Base excess arterial Latest Units: mmol/L -26 ??ICU, IV Insulin and Insulin GTT,IVF and monitoring of labs and vital signs Acidosis Screening Criteria Acidemia is a low arterial pH (<7.35) which can result from a metabolic acidosis, respiratory acidosis, or both. Metabolic Acidosis Metabolic Acidosis ? ? serum HCO3?< 22 mEq/L (< 22 mmol/L) ??? pH may be high, low, or normal ??? Anion gap can be normal, normal high, or high ??? Causes: o Elevated gap: Renal failure, DKA, lactic acidosis, toxic alcohol ingestion o Normal gap: GI loss, RTA, interstitial renal disease, ureterosigmoid loop, acetazolamide Lactic Acidosis is a type of metabolic acidosis o While no definitive concentration of lactate has been established for the diagnosis of lactic acidosis, lactate concentrations > 4 mmol/L and pH < 7.25 are generally considered indicative of significant lactic acidosis. Less extreme lactate and pH changes are referred to as hyperlacticemia (>2 mmol/L). Respiratory Acidosis Respiratory Acidosis (Acute) ? ? Pco2> 40 mm Hg caused by hypoventilation with or without compensatory increase in bicarbonate (HCO3?) ??? pH is usually low but may be near normal ??? Causes: o COPD, interstitial lung disease, obstructive sleep apnea o Obstruction of larynx or trachea o Abnormalities of chest muscles: polio, myasthenia, Guillain-Ledyard o [employer] depression due to drugs, anesthesia, obesity hypoventilation If provider believes patient has acidosis in the absence of above laboratory values, please document rationale and clinical impression in detail Use of terms such as likely, suspected, possible, or probable (associated with a specific diagnosisthat is being evaluated, monitored, or treated as if it exists) are acceptable and can be coded in the inpatient setting when documented at the time of discharge. This documentation will become part of the patient???s medical record. Sincerely, Mee Melgar RN, CCDS [phone] * Provider Query - Kisha Holland MD - 03/06/2021 12:59 PM CDT Specify the patient???s Renal Status and document in the medical record and on the form below. __x_Acute Renal Failure ___Acute Renal Failure with Acute Tubular Necrosis (ATN) ___Acute Renal Failure on Chronic Kidney Disease (CKD), specify stage below ___Acute Kidney Injury due to drugs, biologic substance or toxin, specify below ___Acute renal insufficiency ___Acute Interstitial Nephritis ___Chronic Kidney Disease (CKD), specify stage below ___Findings clinically insignificant ___Other, specify below ___Clinically unable to determine Additional Provider Response: Clinical Indicators/Treatments: 03/04:History and Physical:25 y.o.??female??seen in consultation for nausea vomiting, diabetic ketoacidosis.h/o IDDM, DKA, diabetic gastroparesis, tachycardia, and depression ??The patient??is admitted again??as recurrence??for??hyperglycemia diabetic ketoacidosis with significant anion gap associated with nausea vomit hyperemesis.She was placed on insulin infusion normal saline transferred to ICUwhere she will be transitioned??to crystalloid with glucose treated with Zofran for nausea. ??diabetic ketoacidosis hyperemesis.AMS. ??Results for KARINA MENJIVAR ( ) as of 03/06/2021 13:02 Ref. Range 03/04/2021 07:05 03/04/2021 18:00 03/05/2021 07:22 03/06/2021 03:35 BUN Latest Ref Range: 8 - 25 mg/dL 55 (H) 30 (H) 22 16 Creatinine Latest Ref Range: 0.60 - 1.10 mg/dL 1.51 (H) 0.58 (L) 0.41 (L) 0.31 (L) eGFR Latest Units: mL/min/1.73 m2 48 129 145 159 ?ICU,IVF and monitoring of labs and vital signs. National Kid[employer] KDIGO Conference Definition of USMAN USMAN Any of the following: - Increase in SCr by >=0.3 mg/dl within 48 hours* - Increase in SCr to >=1.5 times baseline, which is known or presumed to have occurred within the prior 7 days - Urine volume < 0.5 ml/kg/h for 6 hours *Once the creatinine is above 3 mg/dL, the SCr increase by >=0.3 becomes less significant If provider believes patient has USMAN in the absence of above clinical indicators, please document rationale and clinical impression in detail CKD stage Definition (National Kidney Disease Foundation) ??? Stage 1: GFR greater than or equal to 90 ??? Stage 2: GFR 60-89 ??? Stage 3: GFR 30-59 o Stage 3a: GFR 45-59 o Stage 3b: GFR 30-44 ??? Stage 4: GFR 15-29 ??? Stage 5: GFR less than 15 or Dialysis Use of terms such as likely, suspected, possible, or probable (associated with a specific diagnosisthat is being evaluated, monitored, or treated as if it exists) are acceptable and can be coded in the inpatient setting when documented at the time of discharge. This documentation will become part of the patient???s medical record. Sincerely, Mee Melgar RN, CCDS [phone] * Provider Query - Kisha Holland MD - 03/06/2021 12:44 PM CDT Specify the diagnosis, after study, that best reflects the clinical condition being monitored, evaluated, or treated. Document in the medical record and on the form below. ___ Diabetic Ketoacidosis with coma associated with type 1 Diabetes Mellitus __x_ Diabetic Ketoacidosis without coma associated with type 1 Diabetes Mellitus ___ Other, specify below ___ Clinically unable to determine Additional Provider Response: Clinical Indicators/Treatments: 03/04:ER:Diabetic Ketoacidosis with coma associated with type 1 Diabetes Mellitus Report that HR 156, bp 111/64, and fingerstick >600. Reported that mom was not sure if pt took evening insulin last night. Upon arrival, pt somnolent, but aware of name, date, but does not know ptwas at [place] [facility]. Responds appropriately, but required aggressive agitation to wake pt to respond. Obtunded. unstable vital signs, acute delirium diabetic ketoacidosis, acute electrolyte derangement, acid-base disturbance and hypo/hyper glycemiccontrol 03/04:History and Physical:25 y.o. female seen in consultation for nausea vomit diabetic ketoacidosis.??The patient is admitted again as recurrence for hyperglycemia diabetic ketoacidosis with significant anion gap associated with nausea vomit hyperemesis.She was placed on insulin infusion normal saline transferred to ICU where she will be transitioned to crystalloid with glucose treated with Zofran for nausea. ??diabetic ketoacidosis hyperemesis.AMS. ??Labs, ICU, Insulin GTT and monitoring of labs and vital signs. Use of terms such as likely, suspected, possible, or probable (associated with a specific diagnosisthat is being evaluated, monitored, or treated as if it exists) are acceptable and can be coded in the inpatient setting when documented at the time of discharge. This documentation will become part of the patient???s medical record. Sincerely, Mee Melgar RN, CCDS [phone] * Plan of Care - Pascual Perry RN - 03/06/2021 6:49 AM CDT Problem: Health Behavior: Goal: Understanding of discharge needs will improve Outcome: Progressing Problem: Activity: Goal: Mobility will improve Outcome: Progressing Problem: Lack of Knowledge: Goal: Understanding of ways to prevent future skin breakdown will improve Outcome: Progressing Problem: Skin Integrity: Goal: Risk for impaired skin integrity will decrease Outcome: Progressing Goal: Ability to demonstrate warm and dry skin will improve Outcome: Progressing Goal: Circulation will improve to fullest extent possible Outcome: Progressing Problem: Lack of Knowledge: Goal: Ability to state ways to decrease the risk of falls will improve Outcome: Progressing Problem: Safety: Goal: Will remain free from falls Outcome: Progressing Goal: Will remain free from injury from falls Outcome: Progressing Problem: Activity: Goal: Will verbalize [...] Equipment and the Need for Diabetes Identification [facility] Outcome: Progressing Problem: Fluid Volume: Goal: Will maintain adequate fluid volume Outcome: Progressing Goal: Signs and symptoms of dehydration will decrease Outcome: Progressing Problem: Metabolic: Goal: Ability to maintain appropriate glucose levels will improve Outcome: Progressing Goal: Diagnostic test results will improve Outcome: Progressing Goal: Complications related to the disease process, condition or treatment will be avoided or minimized Outcome: Progressing Problem: Nutritional: Goal: Maintenance of adequate weight for body [...] Problem: Lack of Knowledge: Goal: Ability to identify appropriate dietary choices will improve Outcome: Not Progressing Problem: Nutritional: Goal: Dietary intake will improve Outcome: Not Progressing Goal: Ability to maintain a balanced intake and output will improve Outcome: Not Progressing Problem: Activity: Goal: Ability to perform activities of daily living will improve Outcome: Not Progressing Problem: Lack of Knowledge: Goal: Ability to describe self-care measures that may prevent or decrease complications will improve Outcome: Not Progressing Goal: Ability to manage health-related needs will improve Outcome: Not Progressing Goal: Ability to identify and alter actions that are detrimental to health will improve Outcome: Not Progressing Goal: Knowledge of prevention and discharge planning will improve Outcome: Not Progressing Problem: Fluid Volume: Goal: Ability to achieve a balanced intake and output will improve Outcome: Not Progressing Problem: Nutritional: Goal: Maintenance of adequate nutrition will improve Outcome: Not Progressing Problem: Safety: Goal: Will remain free from falls and injury in home environment Outcome: Defer Note: She is not in her home environment, no falls this shift. Goals: Clinical Goals for the Shift: Stable glucose. Stable vs & labs. No nausea, pain, anxiety, or shortness of breath. No falls Summary: No distress this shift. Insulin gtt discontinued on previous shift, glucose wnl. Pt oriented but slept most of the shift. VSS. Kaur patent, urine output adequate. MCU overflow. No falls. Calls out appropriately. * Plan of Care - Catarina Castro RN - 03/05/2021 7:56 AM CDT Problem: Health Behavior: Goal: Understanding of discharge needs will improve Outcome: Progressing Problem: Lack of Knowledge: Goal: Understanding of ways to prevent future skin breakdown will improve Outcome: Progressing Problem: Nutritional: Goal: Ability to maintain a balanced intake and output will improve Outcome: Progressing Problem: Skin Integrity: Goal: Ability to demonstrate warm and dry skin will improve Outcome: Progressing Problem: Safety: Goal: Will remain free from falls Outcome: Progressing Goal: Will remain free from injury from falls Outcome: Progressing Problem: Activity: Goal: Will verbalize [...] for Diabetes Identification [employer] Outcome: Progressing Goal: Knowledge of prevention and [...] Progressing Problem: Nutritional: Goal: Maintenance of adequate weight for body size and type will improve Outcome: Progressing Problem: Physical Regulation: Goal: Will regain or maintain usual level of consciousness Outcome: Progressing Goal: Pain level will decrease Outcome: Progressing Goal: Will remain free from infection Outcome: Progressing Problem: Respiratory: Goal: Respiratory status will improve Outcome: Progressing Goal: Ability to maintain adequate ventilation will improve Outcome: Progressing Problem: Activity: Goal: Mobility will improve Outcome: Not Progressing Problem: Lack of Knowledge: Goal: Ability to identify appropriate dietary choices will improve Outcome: Not Progressing Problem: Nutritional: Goal: Dietary intake will improve Outcome: Not Progressing Problem: Skin Integrity: Goal: Risk for impaired skin integrity will decrease Outcome: Not Progressing Goal: Circulation will improve to fullest extent possible Outcome: Not Progressing Problem: Lack of Knowledge: Goal: Ability to state ways to decrease the risk of falls will improve Outcome: Not Progressing Problem: Activity: Goal: Ability to perform activities of daily living will improve Outcome: Not Progressing Problem: Lack of Knowledge: Goal: Ability to describe self-care measures that may prevent or decrease complications will improve Outcome: Not Progressing Goal: Ability to manage health-related needs will improve Outcome: Not Progressing Goal: Ability to identify and alter actions that are detrimental to health will improve Outcome: Not Progressing Problem: Nutritional: Goal: Maintenance of adequate nutrition will improve Outcome: Not Progressing Problem: Physical Regulation: Goal: Will not experience complications related to bowel motility Outcome: Not Progressing Problem: Respiratory: Goal: Peripheral tissue perfusion will improve Outcome: Not Progressing Problem: Urinary Elimination: Goal: Ability to achieve and maintain adequate renal perfusion and functioning will improve Outcome: Not Progressing Goals: Clinical Goals for the Shift: Stable vital signs, stable blood sugar, improve labs, no vomiting Summary: pt. Remains on insulin gtt. Blood sugars stable 156-101. Pt. Lethargic but wakes easily toverbal. VSS. Sinus tach decreased from 130's to 110's on telemetry. Labs improving. Unable to get blood for midnight draw after multiple attempts by nurse and 2 phlebotomists. PICC ordered for today.Pt. Tolerating ice chips well. Call light within reach. * ED Procedure Note - Lex Narvaez MD - 03/04/2021 1:23 PM CDT Associated Order(s): Critical Care Procedure Critical Care Performed by: Lex Narvaez MD Authorized by: Lex Narvaez MD Critical care provider statement: As reflected in the history, physical exam, orders, notes, and/or MDM, I was personally present while the patient was critically ill and provided critical care services for approximately 45 minutes, excluding time involved in separately billable procedures. Critical care was necessary to treat or prevent imminent or life-threatening deterioration of the following condition(s): unstable vital signs acute delirium diabetic ketoacidosis, acute electrolyte derangement, acid-base disturbance and hypo/hyper glycemiccontrol Critical care was time spent by me providing the following: continuous telemetry, continuous pulse oximetry, interpretation of bedside monitors, imaging, and arterial/venous lab draws, serial laboratory checks and resuscitation with fluids I provided emergent necessary critical care medicine [...] and discussed management with the admitting team. I admitted this patient to a continuous cardiac monitored bed. Lex Narvaez MD 03/04/21 1324 * ED Procedure Note - Lex Narvaez MD - 03/04/2021 6:56 AM CDT Associated Order(s): ECG 12 lead Procedure ECG 12 lead Date/Time: 03/04/2021 6:56 AM Performed by: Lex Narvaez MD Authorized by: Lex Narvaez MD Rate: ECG rate: 156 ECG rate assessment: tachycardic Rhythm: Rhythm: sinus rhythm and sinus tachycardia Ectopy: Ectopy: none QRS: QRS axis: Normal Conduction: Conduction: normal ST segments: ST segments: Abnormal T waves: T waves: normal Interpretation: Interpretation: non-specific Recommended Follow-up: Recommended follow up: further workup in the ED Lex Narvaez MD 03/04/21 0656 documented in this encounter Plan of Treatment Not on file documented as of this encounter Procedures Procedure Name Priority Date/Time Associated Diagnosis Comments POCT GLUCOSE DEVICE Routine 03/07/2021 4 :24 PM CDT POTASSIUM LEVEL STAT 03/07/2021 4:04 PM CDT POCT GLUCOSE DEVICE Routine 03/07/2021 1 1:11 AM CDT EGFR Routine 03/07/2021 7:27 AM CDT DIFFERENTIAL AUTO Routine 03/07/2021 7:2 7 AM CDT CBC WITH AUTO DIFFERENTIAL Routine 03/07/2021 7:27 AM CDT COMPREHENSIVE METABOLIC PANEL Routine 03/07/2021 7:27 AM CDT POCT GLUCOSE DEVICE Routine 03/07/2021 7 :17 AM CDT POCT GLUCOSE DEVICE Routine 03/07/2021 6 :32 AM CDT POCT GLUCOSE DEVICE Routine 03/07/2021 2 :12 AM CDT POCT GLUCOSE DEVICE Routine 03/06/2021 1 0:56 PM CDT POCT GLUCOSE DEVICE Routine 03/06/2021 8 :55 PM CDT POCT GLUCOSE DEVICE Routine 03/06/2021 5 :16 PM CDT POCT GLUCOSE DEVICE Routine 03/06/2021 1 2:20 PM CDT POCT GLUCOSE DEVICE Routine 03/06/2021 7 :25 AM CDT EGFR Routine 03/06/2021 3:35 AM CDT DIFFERENTIAL AUTO Routine 03/06/2021 3:3 5 AM CDT CBC WITH AUTO DIFFERENTIAL Routine 03/06/2021 3:35 AM CDT COMPREHENSIVE METABOLIC PANEL Routine 03/06/2021 3:35 AM CDT POCT GLUCOSE DEVICE Routine 03/06/2021 1 :04 AM CDT POCT GLUCOSE DEVICE Routine 03/05/2021 9 :06 PM CDT POCT GLUCOSE DEVICE Routine 03/05/2021 4 :08 PM CDT POCT GLUCOSE DEVICE Routine 03/05/2021 1 1:51 AM CDT POCT GLUCOSE DEVICE Routine 03/05/2021 1 0:27 AM CDT POCT GLUCOSE DEVICE Routine 03/05/2021 9 :37 AM CDT POCT GLUCOSE DEVICE Routine 03/05/2021 8 :32 AM CDT POCT GLUCOSE DEVICE Routine 03/05/2021 7 :28 AM CDT EGFR Routine 03/05/2021 7:22 AM CDT DIFFERENTIAL AUTO Routine 03/05/2021 7:2 2 AM CDT CBC WITH AUTO DIFFERENTIAL Routine 03/05/2021 7:22 AM CDT CORTISOL Routine 03/05/2021 7:22 AM CDT COMPREHENSIVE METABOLIC PANEL Routine 03/05/2021 7:22 AM CDT POCT GLUCOSE DEVICE Routine 03/05/2021 6 :37 AM CDT POCT GLUCOSE DEVICE Routine 03/05/2021 5 :25 AM CDT POCT GLUCOSE DEVICE Routine 03/05/2021 4 :08 AM CDT POCT GLUCOSE DEVICE Routine 03/05/2021 3 :05 AM CDT POCT GLUCOSE DEVICE Routine 03/05/2021 2 :07 AM CDT POCT GLUCOSE DEVICE Routine 03/05/2021 1 :04 AM CDT POCT GLUCOSE DEVICE Routine 03/05/2021 1 2:15 AM CDT POCT GLUCOSE DEVICE Routine 03/04/2021 1 1:07 PM CDT POCT GLUCOSE DEVICE Routine 03/04/2021 1 0:08 PM CDT POCT GLUCOSE DEVICE Routine 03/04/2021 9 :18 PM CDT POCT GLUCOSE DEVICE Routine 03/04/2021 8 :01 PM CDT POCT GLUCOSE DEVICE Routine 03/04/2021 6 :30 PM CDT EGFR Timed 03/04/2021 6:00 PM CDT THYROID FUNCTION CASCADE Routine 03/04/2021 6:00 PM CDT BASIC METABOLIC PANEL Timed 03/04/2021 6:00 PM CDT POCT GLUCOSE DEVICE Routine 03/04/2021 5 :19 PM CDT POCT GLUCOSE DEVICE Routine 03/04/2021 4 :28 PM CDT POCT GLUCOSE DEVICE Routine 03/04/2021 3 :35 PM CDT POCT GLUCOSE DEVICE Routine 03/04/2021 2 :10 PM CDT HI CRITICAL CARE ILL/INJURED PATIENT INIT 30-74 MIN Routine 03/04/2021 1:23 PM CDT POCT GLUCOSE DEVICE Routine 03/04/2021 1 :09 PM CDT POCT GLUCOSE DEVICE Routine 03/04/2021 1 1:49 AM CDT POCT GLUCOSE DEVICE Routine 03/04/2021 1 0:50 AM CDT POCT HCG, URINE Routine 03/04/2021 9:17 AM CDT POCT GLUCOSE DEVICE Routine 03/04/2021 9 :10 AM CDT INFLUENZA A/B, RSV, AND COVID-19 PCR Routine 03/04/2021 7:55 AM CDT POCT GLUCOSE DEVICE Routine 03/04/2021 7 :36 AM CDT XR CHEST 1 VIEW ED 03/04/2021 7:13 AM CDT EGFR STAT 03/04/2021 7:05 AM CDT DIFFERENTIAL AUTO STAT 03/04/2021 7:0 5 AM CDT URINALYSIS AND REFLEX TO MICROSCOPIC AND CULTURE STAT 03/04/2021 7:05 AM CDT CBC WITH AUTO DIFFERENTIAL STAT 03/04/2021 7:05 AM CDT URINALYSIS, MICROSCOPIC ONLY STAT 03/04/2021 7:05 AM CDT COMPREHENSIVE METABOLIC PANEL STAT 03/04/2021 7:05 AM CDT ECG 12-LEAD STAT 03/04/2021 6:54 AM CDT POCT GLUCOSE DEVICE Routine 03/04/2021 6 :48 AM CDT BLOOD GAS, ARTERIAL STAT 03/04/2021 6 :46 AM CDT documented in this encounter Results * (ABNORMAL) POCT glucose (03/07/2021 4:24 PM CDT) Glucose, POC 127(H) 71 - 98 mg/dL [facility]OM[facility] ([place]) Blood 03/07/2021 4:24 PM CDT 03/07/2021 4:24 PM CDT Kisha Holland MD LAB POCT ORDERABLES - DEVICE F inal Result Performing Organization Address City/[facility]/ZIP Co de Phone Number [facility] ([place]) [address] [facility] [place] [address] * Potassium (03/07/2021 4:04 PM CDT) Potassium, pl 3.9 3.3 - 4.9 mmol/L TOMY [facility] ([place]) Comment:Slightly Hemolyzed S pecimen Blood 03/07/2021 4:04 PM CDT 03/07/2021 4:06 PM CDT us Kisha Holland MD LAB BLOOD ORDERABLES Final Res ult TOMY [facility] ([place]) 1 [facility] [place] [address] * (ABNORMAL) POCT glucose (03/07/2021 11:11 AM CDT) Glucose, POC 291(H) 71 - 98 mg/dL TOMY SAHU ([place]) Comment:Glu2: RN/ Notified Blood 03/07/2021 11:1 1 AM CDT 03/07/2021 11:11 AM CDT us Kisha Holland MD LAB POCT ORDERABLES - DEVICE F inal Result TOMY SAHU ([place]) 1 [facility] [place] [address] * eGFR (03/07/2021 7:27 AM CDT) eGFR 151 mL/min/1.7 3 m2 TOMY SAHU ([place]) Comment: [...] interpretive data was last reviewed 2020 Blood 03/07/2021 7:27 AM CDT 03/07/2021 7:36 AM CDT us Dominic Camara MD LAB BLOOD ORDERABLES Final Resu lt TOMY SAHU ([place]) 1 [facility] [place] [address] * Differential, auto (03/07/2021 7:27 AM CDT) Neutrophil abs 3.6 1.7 - 6.5 K/cumm [facility] ([place]) Imm gran abs 0.0 0.0 - 0.1 K/cumm [facility] ([place]) Lymphocyte abs 0.8 0.8 - 3.3 K/cumm [facility] ([place]) Monocyte abs 0.4 0.2 - 0.8 K/cumm [facility] ([place]) Eosinophil abs 0.0 0.0 - 0.5 K/cumm [facility] ([place]) Basophil abs 0.0 0.0 - 0.1 K/cumm [facility] ([place]) Neutrophil pct 73.1 % [facility] ([place]) Comment: Interpretive [...] was last revised on 2017. Lymphocyte pct 16.5 % [facility] ([place]) Comment: Interpretive Data Percent cell count reference ranges are not reported, since discordance with absolute values may lead to misinterpretation of CBC data. Current Interpretive Data was last revised on 2017. Monocyte pct 8.4 % [facility] ([place]) Comment: Interpretive Data Percent cell count reference ranges are not reported, since discordance with absolute values may lead to misinterpretation of CBC data. Current Interpretive Data was last revised on 2017. Eosinophil pct 0.8 % [facility] ([place]) Comment: Interpretive Data Percent cell count reference ranges are not reported, since discordance with absolute values may lead to misinterpretation of CBC data. Current Interpretive Data was last revised on 2017. Basophil pct 0.4 % [facility] ([place]) Comment: Interpretive Data Percent cell count reference ranges are not reported, since discordance with absolute values may lead to misinterpretation of CBC data. Current Interpretive Data was last revised on 2017. Blood 03/07/2021 7:27 AM CDT 03/07/2021 7:36 AM CDT us Dominic Camara MD LAB BLOOD ORDERABLES Final Resu lt TOMY [facility] ([place]) 1 [facility] Department of Laboratories [place], [place] [id number] * (ABNORMAL) CBC with auto differential (03/07/2021 7:27 AM CDT) WBC 4.9 3.8 - 9.9 K/cumm [facility] ([place]) Hgb 12.1 11.9 - 15.5 g/dL [facility] ([place]) Hct 36.9 35.6 - 45.5 % [facility] ([place]) Plt 242 150 - 400 K/cumm [facility] ([place]) MPV 9.0(L) 9.1 - 12.3 fL [facility] ([place]) RBC 4.52 3.90 - 5.20 M/cumm [facility] ([place]) MCV 81.6 81.3 - 96.4 fL [facility] ([place]) MCH 26.8(L) 27.1 - 33.3 pg [facility] ([place]) MCHC 32.8 32.3 - 35.7 g/dL [facility] ([place]) RDW CV 15.7(H) 11.1 - 14.9 % [facility] ([place]) RDW SD 47.2 35.7 - 48.1 fL [facility] ([place]) NRBC abs 0.00 0.00 - 0.01 K/cumm [facility] ([place]) Blood 03/07/2021 7:27 AM CDT 03/07/2021 7:36 AM CDT us Dominic Camara MD LAB BLOOD ORDERABLES Final Resu lt TOMY SAHU ([place]) 1 [facility] [place] [address] * (ABNORMAL) Comprehensive metabolic panel (03/07/2021 7:27 AM CDT) Sodium 132(L) 135 - 145 mmol/L [facility] ([place]) Potassium, pl 3.0(C) 3.3 - 4.9 mmol/L [facility] ([place]) Comment:Critical Result call ed to and read back by paulette bowman [facility], DATE: 2021-03-07 08:09:51 BY: paulina leigh Chloride 93(L) 97 - 110 mmol/L [facility] ([place]) CO2 30 22 - 32 mmol/L [facility] ([place]) [...] 5.0 g/dL [facility] ([place]) Alk phos 85 40 - 130 Units/L [facility] ([place]) ALT 34 7 - 45 Units/L [facility] ([place]) AST 34 10 - 45 Units/L [facility] ([place]) Blood 03/07/2021 7:27 AM CDT 03/07/2021 7:36 AM CDT us Dominic Camara MD LAB BLOOD ORDERABLES Final Resu lt TOMY SAHU ([place]) 1 [facility] [place] [address] * (ABNORMAL) POCT glucose (03/07/2021 7:17 AM CDT) Glucose, POC 200(H) 71 - 98 mg/dL TOMY [facility] ([place]) Comment:Glu2: RN/ Notified Blood 03/07/2021 7:17 AM CDT 03/07/2021 7:17 AM CDT Kisha Holland MD LAB POCT ORDERABLES - DEVICE F inal Result Performing Organization Address [facility] Co de Phone Number TOMY SAHU ([place]) 1 [facility] [place] [address] * (ABNORMAL) POCT glucose (03/07/2021 6:32 AM CDT) Glucose, POC 193(H) 71 - 98 mg/dL TOMY SAHU ([place]) Blood 03/07/2021 6:32 AM CDT 03/07/2021 6:32 AM CDT Kisha Holland MD LAB POCT ORDERABLES - DEVICE F inal Result Performing Organization Address City/[facility]/ZIP Co de Phone Number TOMY SAHU ([place]) 1 [facility] [place] [address] * POCT glucose (03/07/2021 2:12 AM CDT) Glucose, POC 96 71 - 98 mg/dL TOMY [facility] ([place]) Blood 03/07/2021 2:12 AM CDT 03/07/2021 2:12 AM CDT Kisha Holland MD LAB POCT ORDERABLES - DEVICE F inal Result TOMY SAHU ([place]) 1 [facility] [place] [address] * (ABNORMAL) POCT glucose (03/06/2021 10:56 PM CDT) Glucose, POC 192(H) 71 - 98 mg/dL TOMY [facility] ([place]) Blood 03/06/2021 10:5 6 PM CDT 03/06/2021 10:56 PM CDT Kisha Holland MD LAB POCT ORDERABLES - DEVICE F inal Result TOMY SAHU ([place]) 1 [facility] [place] [address] * (ABNORMAL) POCT glucose (03/06/2021 8:55 PM CDT) Glucose, POC 264(H) 71 - 98 mg/dL [facility] Blood 03/06/2021 8:55 PM CDT 03/06/2021 8:55 PM CDT Kisha Holland MD LAB POCT ORDERABLES - DEVICE F inal Result TOMY SAHU ([place]) 1 [facility] [place] [address] * POCT glucose (03/06/2021 5:16 PM CDT) Glucose, POC 86 71 - 98 mg/dL TOMY [facility] ([place]) Blood 03/06/2021 5:16 PM CDT 03/06/2021 5:16 PM CDT Kisha Holland MD LAB POCT ORDERABLES - DEVICE F inal Result Performing Organization Address City/[facility]/ZIP Co de Phone Number TOMY [facility] ([place]) 1 [facility] [place] [address] * (ABNORMAL) POCT glucose (03/06/2021 12:20 PM CDT) Glucose, POC 159(H) 71 - 98 mg/dL TOMY [facility] ([place]) Blood 03/06/2021 12:2 0 PM CDT 03/06/2021 12:20 PM CDT Kisha Holland MD LAB POCT ORDERABLES - DEVICE F inal Result Performing Organization Address [facility] Co de Phone Number TOMY [facility] ([place]) 1 [facility] [place] [address] * (ABNORMAL) POCT glucose (03/06/2021 7:25 AM CDT) Glucose, POC 200(H) 71 - 98 mg/dL TOMY [facility] ([place]) Blood 03/06/2021 7:25 AM CDT 03/06/2021 7:25 AM CDT Kisha Holland MD LAB POCT ORDERABLES - DEVICE F inal Result Performing Organization Address City/[facility]/ZIP Co de Phone Number TOMY [facility] ([place]) 1 [facility] [place] [address] * eGFR (03/06/2021 3:35 AM CDT) eGFR 159 mL/min/1.7 3 m2 TOMY [facility] ([place]) Comment: Interpretive Data Reference Interval Normal [...] interpretive data was last reviewed 2020 Blood 03/06/2021 3:35 AM CDT 03/06/2021 4:50 AM CDT us Dominic Camara MD LAB BLOOD ORDERABLES Final Resu lt TOMY [facility] ([place]) 1 [facility] Department [place] [address] * (ABNORMAL) Differential, auto (03/06/2021 3:35 AM CDT) Neutrophil abs 4.6 1.7 - 6.5 K/cumm [facility] ([place]) Imm gran abs 0.0 0.0 - 0.1 K/cumm [facility] ([place]) Lymphocyte abs 1.0 0.8 - 3.3 K/cumm [facility] ([place]) Monocyte abs 0.9(H) 0.2 - 0.8 K/cumm [facility] ([place]) Eosinophil abs 0.0 0.0 - 0.5 K/cumm [facility] ([place]) Basophil abs 0.0 0.0 - 0.1 K/cumm [facility] ([place]) Neutrophil pct 70.3 % [facility] ([place]) Comment: Interpretive [...] was last revised on 2017. Lymphocyte pct 14.8 % [facility] ([place]) Comment: Interpretive Data Percent cell count reference ranges are not reported, since discordance with absolute values may lead to misinterpretation of CBC data. Current Interpretive Data was last revised on 2017. Monocyte pct 13.8 % [facility] ([place]) Comment: Interpretive Data [...] Data was last revised on 2017. Blood 03/06/2021 3:35 AM CDT 03/06/2021 4:50 AM CDT us Dominic Camara MD LAB BLOOD ORDERABLES Final Resu lt TOMY SAHU ([place]) 1 [facility] Department [place] [address] * (ABNORMAL) CBC with auto differential (03/06/2021 3:35 AM CDT) WBC 6.6 3.8 - 9.9 K/cumm [facility] ([place]) Hgb 10.9(L) 11.9 - 15.5 g/dL [facility] ([place]) Hct 33.6(L) 35.6 - 45.5 % [facility] ([place]) Plt 292 150 - 400 K/cumm [facility] ([place]) MPV 9.6 9.1 - 12.3 fL [facility] ([place]) RBC 4.05 3.90 - 5.20 M/cumm [facility] ([place]) MCV 83.0 81.3 - 96.4 fL [facility] ([place]) MCH 26.9(L) 27.1 - 33.3 pg [facility] ([place]) MCHC 32.4 32.3 - 35.7 g/dL [facility] ([place]) RDW CV 16.4(H) 11.1 - 14.9 % [facility] ([place]) RDW SD 49.9(H) 35.7 - 48.1 fL [facility] ([place]) NRBC abs 0.00 0.00 - 0.01 K/cumm [facility] ([place]) Blood 03/06/2021 3:35 AM CDT 03/06/2021 4:50 AM CDT us Dominic Camara MD LAB BLOOD ORDERABLES Final Resu lt [facility] ([place]) 1 [facility] Department [place] [address] * (ABNORMAL) Comprehensive metabolic panel (03/06/2021 3:35 AM CDT) Pathologist [facility] Sodium 136 135 - 145 mmol/L [facility] ([place]) Potassium, pl 3.3 3.3 - 4.9 mmol/L [facility] ([place]) Chloride 98 97 - 110 mmol/L [facility] ([place]) CO2 25 22 - 32 mmol/L [facility] ([place]) Anion gap 13 2 - 15 mmol/L [facility] ([place]) BUN 16 8 - 25 mg/dL [facility] ([place]) Creatinine 0.31(L) 0.60 - 1.10 mg/dL [facility] ([place]) Glucose 162 70 - 199 mg/dL [facility] ([place]) [...] 1.2 mg/dL [facility] ([place]) Protein, pl 5.5(L) 6.5 - 8.5 g/dL [facility] ([place]) Albumin 3.5 3.5 - 5.0 g/dL [facility] ([place]) Alk phos 79 40 - 130 Units/L [facility] ([place]) ALT 19 7 - 45 Units/L [facility] ([place]) AST 26 10 - 45 Units/L [facility] ([place]) Comment: Hemolysis present. ??Results may be affected. Slightly Hemolyzed Specimen Blood 03/06/2021 3:35 AM CDT 03/06/2021 4:50 AM CDT us Dominic Camara MD LAB BLOOD ORDERABLES Final Resu lt [facility] ([place]) 1 [facility] Department of Laboratories [place], [place] [id number] * (ABNORMAL) POCT glucose (03/06/2021 1:04 AM CDT) Glucose, POC 107(H) 71 - 98 mg/dL [facility] ([place]) Blood 03/06/2021 1:04 AM CDT 03/06/2021 1:04 AM CDT us Cally Crespo MD LAB POCT ORDERABLES - DEV ICE Final Result TOMY [place]) 1 [facility] [place] [address] * (ABNORMAL) POCT glucose (03/05/2021 9:06 PM CDT) Glucose, POC 161(H) 71 - 98 mg/dL TOMY SAHU ([place]) Blood 03/05/2021 9:06 PM CDT 03/05/2021 9:06 PM CDT us Cally Crespo MD LAB POCT ORDERABLES - DEV ICE Final Result Performing Organization Address City/[facility]/ZIP Co de Phone Number TOMY SAHU ([place]) 1 [facility] [place] [address] * (ABNORMAL) POCT glucose (03/05/2021 4:08 PM CDT) Glucose, POC 283(H) 71 - 98 mg/dL TOMY SAHU ([place]) Blood 03/05/2021 4:08 PM CDT 03/05/2021 4:08 PM CDT us Dominic Camara MD LAB POCT ORDERABLES - DEVICE Fi nal Result TOMY SAHU ([place]) 1 [facility] [place] [address] * (ABNORMAL) POCT glucose (03/05/2021 11:51 AM CDT) Glucose, POC 125(H) 71 - 98 mg/dL TOMY SAHU ([place]) Blood 03/05/2021 11:5 1 AM CDT 03/05/2021 11:51 AM CDT us Dominic Camara MD LAB POCT ORDERABLES - DEVICE Fi nal Result Performing Organization Address City/[facility]/ZIP Co de Phone Number TOMY SAHU ([place]) 1 [facility] [place] [address] * POCT glucose (03/05/2021 10:27 AM CDT) Glucose, POC 93 71 - 98 mg/dL TOMY SAHU ([place]) Blood 03/05/2021 10:2 7 AM CDT 03/05/2021 10:27 AM CDT us Dominic Camara MD LAB POCT ORDERABLES - DEVICE Fi nal Result Performing Organization Address [facility] Co de Phone Number TOMY SAHU ([place]) 1 [facility] [place] [address] * (ABNORMAL) POCT glucose (03/05/2021 9:37 AM CDT) Glucose, POC 99(H) 71 - 98 mg/dL TOMY SAHU ([place]) Blood 03/05/2021 9:37 AM CDT 03/05/2021 9:37 AM CDT us Dominic Camara MD LAB POCT ORDERABLES - DEVICE Fi nal Result Performing Organization Address [facility] Co de Phone Number TOMY SAHU ([place]) 1 [facility] [place] [address] * (ABNORMAL) POCT glucose (03/05/2021 8:32 AM CDT) Glucose, POC 144(H) 71 - 98 mg/dL TOMY SAHU ([place]) Blood 03/05/2021 8:32 AM CDT 03/05/2021 8:32 AM CDT us Dominic Camara MD LAB POCT ORDERABLES - DEVICE Fi nal Result Performing Organization Address City/[facility]/ZIP Co de Phone Number TOMY SAHU ([place]) 1 [facility] Department [place] [address] * (ABNORMAL) POCT glucose (03/05/2021 7:28 AM CDT) Glucose, POC 141(H) 71 - 98 mg/dL TOMY SAHU ([place]) Blood 03/05/2021 7:28 AM CDT 03/05/2021 7:28 AM CDT us Dominic Camara MD LAB POCT ORDERABLES - DEVICE Fi nal Result TOMY SAHU ([place]) 1 [facility] [place] [address] * eGFR (03/05/2021 7:22 AM CDT) Pathologist [facility] eGFR 145 mL/min/1.7 3 m2 TOMY SAHU ([place]) Comment: [...] interpretive data was last reviewed 2020 Blood 03/05/2021 7:22 AM CDT 03/05/2021 7:27 AM CDT us Dominic Camara MD LAB BLOOD ORDERABLES Final Resu lt TOMY [facility] ([place]) 1 [facility] Department [place] [address] * (ABNORMAL) Differential, auto (03/05/2021 7:22 AM CDT) Neutrophil abs 12.2(H) 1.7 - 6.5 K/cumm [facility] ([place]) Imm gran abs 0.1 0.0 - 0.1 K/cumm [facility] ([place]) Lymphocyte abs 1.5 0.8 - 3.3 K/cumm [facility] ([place]) Monocyte abs 1.4(H) 0.2 - 0.8 K/cumm [facility] ([place]) Eosinophil abs 0.0 0.0 - 0.5 K/cumm [facility] ([place]) Basophil abs 0.0 0.0 - 0.1 K/cumm [facility] ([place]) Neutrophil pct 80.7 % [facility] ([place]) Comment: Interpretive [...] was last revised on 2017. Lymphocyte pct 9.7 % [facility] ([place]) Comment: Interpretive Data Percent cell count reference ranges are not reported, since discordance with absolute values may lead to misinterpretation of CBC data. Current Interpretive Data was last revised on 2017. Monocyte pct 9.0 % [facility] ([place]) Comment: Interpretive Data [...] Data was last revised on 2017. Blood 03/05/2021 7:22 AM CDT 03/05/2021 7:27 AM CDT us Dominic Camara MD LAB BLOOD ORDERABLES Final Resu lt [facility] ([place]) 1 [facility] Department [place] [address] * (ABNORMAL) CBC with auto differential (03/05/2021 7:22 AM CDT) WBC 15.1(H) 3.8 - 9.9 K/cumm [facility] ([place]) Hgb 10.9(L) 11.9 - 15.5 g/dL [facility] ([place]) Hct 32.7(L) 35.6 - 45.5 % [facility] ([place]) Plt 359 150 - 400 K/cumm [facility] ([place]) MPV 8.9(L) 9.1 - 12.3 fL [facility] ([place]) RBC 4.03 3.90 - 5.20 M/cumm [facility] ([place]) MCV 81.1(L) 81.3 - 96.4 fL [facility] ([place]) MCH 27.0(L) 27.1 - 33.3 pg [facility] ([place]) MCHC 33.3 32.3 - 35.7 g/dL [facility] ([place]) RDW CV 16.8(H) 11.1 - 14.9 % [facility] ([place]) RDW SD 49.8(H) 35.7 - 48.1 fL [facility] ([place]) NRBC abs 0.00 0.00 - 0.01 K/cumm [facility] ([place]) Blood 03/05/2021 7:22 AM CDT 03/05/2021 7:27 AM CDT us Dominic Camara MD LAB BLOOD ORDERABLES Final Resu lt TOMY [facility] ([place]) 1 [facility] Department [place] [address] * (ABNORMAL) Comprehensive metabolic panel (03/05/2021 7:22 AM CDT) Sodium 138 135 - 145 mmol/L [facility] ([place]) Potassium, pl 3.4 3.3 - 4.9 mmol/L [facility] ([place]) Chloride 104 97 - 110 mmol/L [facility] ([place]) CO2 24 22 - 32 mmol/L [facility] ([place]) Anion gap 10 2 - 15 mmol/L [facility] ([place]) BUN 22 8 - 25 mg/dL [facility] ([place]) Creatinine 0.41(L) 0.60 - 1.10 mg/dL [facility] ([place]) Glucose 155 70 - 199 mg/dL [facility] ([place]) [...] 1.2 mg/dL [facility] ([place]) Protein, pl 5.8(L) 6.5 - 8.5 g/dL [facility] ([place]) Albumin 3.7 3.5 - 5.0 g/dL TOMY [facility] ([place]) Alk phos 74 40 - 130 Units/L [facility] ([place]) ALT 10 7 - 45 Units/L [facility] ([place]) AST 18 10 - 45 Units/L [facility] ([place]) Blood 03/05/2021 7:22 AM CDT 03/05/2021 7:27 AM CDT Dominic Camara MD LAB BLOOD ORDERABLES Final Resu lt TOMY SAHU ([place]) 1 [facility] [place] [place] [address] * (ABNORMAL) Cortisol (03/05/2021 7:22 AM CDT) Cortisol 20.6(H) 4.8 - 19.5 mcg/dl TOMY LUIS ALBERTO ([place]) Comment: Interpretive Data Normal Range: ??4.8 - 19.5 mcg/dL; ??Evening: ??Half of morning value. ?? This analyte undergoes marked diurnal variation. ??Ranges indicated apply to morning specimens. ?? Current interpretive data was last revised 2018. Testing performed by: [facility], [address] [place] [address]., [id number] Blood 03/05/2021 7:22 AM CDT 03/05/2021 9:09 AM CDT Dominic Camara MD LAB BLOOD ORDERABLES Final Resu lt TOMY SAHU ([place]) 1 [facility] [place] [address] * (ABNORMAL) POCT glucose (03/05/2021 6:37 AM CDT) Glucose, POC 139(H) 71 - 98 mg/dL TOMY LUIS ALBERTO ([place]) Blood 03/05/2021 6:37 AM CDT 03/05/2021 6:37 AM CDT us Dominic Camara MD LAB POCT ORDERABLES - DEVICE Fi nal Result Performing Organization Address City/[facility]/ZIP Co de Phone Number [place] 1 [facility] [place] [address] * (ABNORMAL) POCT glucose (03/05/2021 5:25 AM CDT) Glucose, POC 101(H) 71 - 98 mg/dL TOMY SHAU ([place]) Blood 03/05/2021 5:25 AM CDT 03/05/2021 5:25 AM CDT Dominic Camara MD LAB POCT ORDERABLES - DEVICE Fi nal Result Performing Organization Address [facility] Co de Phone Number TOMY SAHU ([place]) 1 [facility] [place] [address] * (ABNORMAL) POCT glucose (03/05/2021 4:08 AM CDT) Glucose, POC 117(H) 71 - 98 mg/dL TOMY SAHU ([place]) Blood 03/05/2021 4:08 AM CDT 03/05/2021 4:08 AM CDT Dominic Camara MD LAB POCT ORDERABLES - DEVICE Fi nal Result Performing Organization Address City/[facility]/ZIP Co de Phone Number TOMY SAHU ([place]) 1 [facility] [place] [address] * (ABNORMAL) POCT glucose (03/05/2021 3:05 AM CDT) Glucose, POC 119(H) 71 - 98 mg/dL TOMY SAHU ([place]) Blood 03/05/2021 3:05 AM CDT 03/05/2021 3:05 AM CDT us Dominic Camara MD LAB POCT ORDERABLES - DEVICE Fi nal Result TOMY SAHU ([place]) 1 [facility] [place] [address] * (ABNORMAL) POCT glucose (03/05/2021 2:07 AM CDT) Glucose, POC 142(H) 71 - 98 mg/dL TOMY SAHU ([place]) Blood 03/05/2021 2:07 AM CDT 03/05/2021 2:07 AM CDT us Dominic Camara MD LAB POCT ORDERABLES - DEVICE Fi nal Result Performing Organization Address City/[facility]/ZIP Co de Phone Number TOMY SAHU ([place]) 1 [facility] [place] [address] * (ABNORMAL) POCT glucose (03/05/2021 1:04 AM CDT) Glucose, POC 127(H) 71 - 98 mg/dL TOMY SAHU ([place]) Blood 03/05/2021 1:04 AM CDT 03/05/2021 1:04 AM CDT us Dominic Camara MD LAB POCT ORDERABLES - DEVICE Fi nal Result Performing Organization Address City/[facility]/ZIP Co de Phone Number TOMY SAHU ([place]) 1 [facility] [place] [address] * (ABNORMAL) POCT glucose (03/05/2021 12:15 AM CDT) Glucose, POC 126(H) 71 - 98 mg/dL TOMY SAHU ([place]) Blood 03/05/2021 12:1 5 AM CDT 03/05/2021 12:15 AM CDT us Dominic Camara MD LAB POCT ORDERABLES - DEVICE Fi nal Result TOMY SAHU ([place]) 1 [facility] [place] [address] * (ABNORMAL) POCT glucose (03/04/2021 11:07 PM CDT) Glucose, POC 120(H) 71 - 98 mg/dL TOMY SAHU ([place]) Blood 03/04/2021 11:0 7 PM CDT 03/04/2021 11:07 PM CDT Dominic Camara MD LAB POCT ORDERABLES - DEVICE Fi nal Result TOMY SAHU ([place]) [address] [place] [address] * (ABNORMAL) POCT glucose (03/04/2021 10:08 PM CDT) Glucose, POC 114(H) 71 - 98 mg/dL [facility] Blood 03/04/2021 10:0 8 PM CDT 03/04/2021 10:08 PM CDT Dominic Camara MD LAB POCT ORDERABLES - DEVICE Fi nal Result TOMY SAHU ([place]) 1 [facility] [place] [address] * (ABNORMAL) POCT glucose (03/04/2021 9:18 PM CDT) Glucose, POC 132(H) 71 - 98 mg/dL TOMY [facility] ([place]) Blood 03/04/2021 9:18 PM CDT 03/04/2021 9:18 PM CDT Dominic Camara MD LAB POCT ORDERABLES - DEVICE Fi nal Result TOMY SAHU ([place]) 1 [facility] [place] [address] * (ABNORMAL) POCT glucose (03/04/2021 8:01 PM CDT) Glucose, POC 156(H) 71 - 98 mg/dL [facility] ([place]) Blood 03/04/2021 8:01 PM CDT 03/04/2021 8:01 PM CDT Dominic Camara MD LAB POCT ORDERABLES - DEVICE Fi nal Result Performing Organization Address [facility] Co de Phone Number [facility] ([place]) 1 [facility] [place] [address] * (ABNORMAL) POCT glucose (03/04/2021 6:30 PM CDT) Glucose, POC 122(H) 71 - 98 mg/dL [facility] ([place]) Blood 03/04/2021 6:30 PM CDT 03/04/2021 6:30 PM CDT Dominic Camara MD LAB POCT ORDERABLES - DEVICE Fi nal Result Performing Organization Address [facility] de Phone Number [facility] ([place]) 1 [facility] [place] [address] * eGFR (03/04/2021 6:00 PM CDT) eGFR 129 mL/min/1.7 3 m2 [facility] ([place]) Comment: Interpretive Data Reference Interval Normal ?>/= [...] interpretive data was last reviewed 2020 Blood 03/04/2021 6:00 PM CDT 03/04/2021 7:10 PM CDT us Dominic Camara MD LAB BLOOD ORDERABLES Final Resu lt [facility] ([place]) 1 [facility] Department [place] [address] * (ABNORMAL) Basic metabolic panel (03/04/2021 6:00 PM CDT) Sodium 137 135 - 145 mmol/L [facility] ([place]) Potassium, pl 4.3 3.3 - 4.9 mmol/L [facility] ([place]) Chloride 108 97 - 110 mmol/L [facility] ([place]) CO2 16(L) 22 - 32 mmol/L [facility] ([place]) Anion gap 14 2 - 15 mmol/L [facility] BUN 30(H) 8 - 25 mg/dL [facility] ([place]) Creatinine 0.58(L) 0.60 - 1.10 mg/dL [facility] ([place]) Glucose 183 70 - 199 mg/dL [facility] ([place]) [...] 2017. Calcium 8.3(L) 8.5 - 10.3 mg/dL TOMY [facility] ([place]) Blood 03/04/2021 6:00 PM CDT 03/04/2021 7:10 PM CDT us Dominic Camara MD LAB BLOOD ORDERABLES Final Resu lt TOMY SAHU ([place]) 1 [facility] [place] [address] * TSH reflex to free T4 (03/04/2021 6:00 PM CDT) TSH 0.64 0.30 - 4.20 mcIUnit/mL TOMY [facility] ([place]) Blood 03/04/2021 6:00 PM CDT 03/04/2021 7:10 PM CDT us Dominic Camara MD LAB BLOOD ORDERABLES Final Resu lt Performing Organization Address [facility] Co de Phone Number TOMY SAHU ([place]) 1 [facility] [place] [address] * POCT glucose (03/04/2021 5:19 PM CDT) Glucose, POC 95 71 - 98 mg/dL TOMY SAHU ([place]) Blood 03/04/2021 5:19 PM CDT 03/04/2021 5:19 PM CDT us Dominic Camara MD LAB POCT ORDERABLES - DEVICE Fi nal Result Performing Organization Address City/[facility] Co de Phone Number TOMY SAHU ([place]) 1 [facility] [place] [address] * POCT glucose (03/04/2021 4:28 PM CDT) Glucose, POC 97 71 - 98 mg/dL TOMY SAHU ([place]) Blood 03/04/2021 4:28 PM CDT 03/04/2021 4:28 PM CDT us Lex Narvaez MD LAB POCT ORDERABLES - DEVICE Final Result Performing Organization Address [facility]/ZIP Co de Phone Number TOMY SAHU ([place]) 1 [facility] [place] [address] * (ABNORMAL) POCT glucose (03/04/2021 3:35 PM CDT) Glucose, POC 120(H) 71 - 98 mg/dL TOMY SAHU ([place]) Blood 03/04/2021 3:35 PM CDT 03/04/2021 3:35 PM CDT us Lex Narvaez MD LAB POCT ORDERABLES - DEVICE Final Result Performing Organization Address [facility]/ZIP Co de Phone Number TOMY SAHU ([place]) 1 [facility] [place] [address] * (ABNORMAL) POCT glucose (03/04/2021 2:10 PM CDT) Glucose, POC 147(H) 71 - 98 mg/dL TOMY SAHU ([place]) Blood 03/04/2021 2:10 PM CDT 03/04/2021 2:10 PM CDT us Lex Narvaez MD LAB POCT ORDERABLES - DEVICE Final Result Performing Organization Address City/[facility]/ZIP Co de Phone Number TOMY SAHU ([place]) 1 [facility] [place] [address] * HI CRITICAL CARE ILL/INJURED PATIENT INIT 30-74 MIN (03/04/2021 1:23 PM CDT) Narrative Lex Narvaez MD - 03/04/2021 1:23 PM CDT Lex Narvaez MD ? 03/04/2021 ??1:24 PM Critical Care Performed by: Lex Narvaez MD Authorized by: Lex Narvaez MD Critical care provider statement: As reflected in the history, physical exam, orders, notes, and/or MDM, I was personally present while the patient was critically ill and provided critical care services for approximately 45 minutes, excluding time involved in separately billable procedures. ??Critical care was necessary to treat or prevent imminent or life-threatening deterioration of the following condition(s): ?? unstable vital signs ?? acute delirium ?? diabetic ketoacidosis, acute electrolyte derangement, acid-base disturbance and hypo/hyper glycemic control ??Critical care was time spent by me providing the following: ? continuous telemetry, continuous pulse oximetry, interpretation of bedside monitors, imaging, and arterial/venous lab draws, serial laboratory checks and resuscitation with fluids ?? I provided emergent necessary critical care [...] and discussed management with the admitting team. I admitted this patient to a continuous cardiac monitored bed. us Lex Narvaez MD IN CLINIC/BEDSIDE HANDY KONG Final Result * (ABNORMAL) POCT glucose (03/04/2021 1:09 PM CDT) [facility] Glucose, POC 166(H) 71 - 98 mg/dL TOMY SAHU ([place]) Blood 03/04/2021 1:09 PM CDT 03/04/2021 1:09 PM CDT us Lex Narvaez MD LAB POCT ORDERABLES - DEVICE Final Result TOMY SAHU ([place]) 1 [facility] [place] [address] * (ABNORMAL) POCT glucose (03/04/2021 11:49 AM CDT) Glucose, POC 232(H) 71 - 98 mg/dL [facility] ([place]) Comment:Glu2: MARY/ Notified Blood 03/04/2021 11:4 9 AM CDT 03/04/2021 11:49 AM CDT Lex Narvaez MD LAB POCT ORDERABLES - DEVICE Final Result Performing Organization Address [facility]/ZIP Co de Phone Number [facility] ([place]) 1 [facility] [place] [address] * (ABNORMAL) POCT glucose (03/04/2021 10:50 AM CDT) Glucose, POC 201(H) 71 - 98 mg/dL [facility] ([place]) Comment:Glu2: MARY/ Notified Blood 03/04/2021 10:5 0 AM CDT 03/04/2021 10:50 AM CDT Lex Narvaez MD LAB POCT ORDERABLES - DEVICE Final Result Performing Organization Address [facility] Co de Phone Number [facility] ([place]) 1 [facility] [place] [address] * POCT hCG, urine (03/04/2021 9:17 AM CDT) HCG, ur, POC Negative Lot Number [id number] QC Backgroud Clear Acceptable QC Control Line Acceptable Urine 03/04/2021 9:17 AM CDT Lex Narvaez MD POINT OF CARE TEST ORD ERABLES Final Result * (ABNORMAL) POCT glucose (03/04/2021 9:10 AM CDT) Glucose, POC 227(H) 71 - 98 mg/dL TOMY SAHU ([place]) Comment:Glu2: RN/ Notified Blood 03/04/2021 9:10 AM CDT 03/04/2021 9:10 AM CDT Lex Narvaez MD LAB POCT ORDERABLES - DEVICE Final Result TOMY LUIS ALBERTO ([place]) 1 [facility] Department [place] [address] * Influenza A/B, RSV, and COVID-19 PCR Nasopharyngeal (03/04/2021 7:55 AM CDT) COVID-19 RNA Negative Negative TOMY SAHU ([place]) Comment: Interpretive data: Synonyms for this test include: PCR and NAAT . ??This test is performed using the Covocative Xpert Xpress assay. This is a real-time RT-PCR test intended for the qualitative detection of nucleic acid from the SARS-CoV-2. This assay has been reviewed by the FDA for Emergency Use Authorization (EUA). The performance characteristics have been verified by the performing laboratory. Results must be considered in the clinical context and a negative result does not rule out infection. Interpretive data last revised June 06, 2020. Influenza A RNA Negative Negative [facility] ([place]) Influenza B RNA Negative Negative [facility] ([place] RSV RNA Negative Negative [facility] LUIS ALBERTO ([place]) Comment: Interpretive data: This test is performed using the Covocative Xpert Assay. This is a multiplex, real- time reverse transcriptase PCR assay that detects influenza A, influenza B, and respiratory syncytial virus RNA. This assay has been cleared by the US Food and Drug Administration, and its performance characteristics have been verified by the performing laboratory. ?? Interpretive data last revised 2020. First COVID-19 test? No TOMY SAHU ([place]) Employeed in healthcare? No TOMY SAHU ([place]) status? No CE RNJALEN SAHU ([place]) Group care resident? No TOMY SAHU ([place]) Hospitalized? Yes TOMY SAHU ([place]) Is patient in ICU? Yes C ERNJALEN LUQUE) Symptomatic as defined by CDC? Unknown TOMY SAHU ([place]) Nasopharyngeal 03/04/2021 7: 55 AM CDT 03/04/2021 8:02 AM CDT Narrative TOMY SAHU ([place]) - 03/04/2021 8:40 AM CDT Reason for testing?->Symptomatic (not immunocompromised) Known exposure to confirmed or suspected COVID-19 case?->No us Lex Narvaez MD LAB MICROBIOLOGY - GEN ERAL ORDERABLES Final Result Performing Organization Address [facility] Co de Phone Number TOMY SAHU ([place]) 1 [facility] [place] [address] * (ABNORMAL) POCT glucose (03/04/2021 7:36 AM CDT) [facility] Glucose, POC 457(C) 71 - 98 mg/dL TOMY SAHU ([place]) Comment:Glu2: RN/ Notified Blood 03/04/2021 7:36 AM CDT 03/04/2021 7:36 AM CDT us Lex Narvaez MD LAB POCT ORDERABLES - DEVICE Final Result Performing Organization Address [facility] de Phone Number TOMY SAHU ([place]) 1 [facility] [place] [address] * XR Chest 1 Vw Portable (03/04/2021 7:13 AM CDT) Anatomical Region Laterality Modality Body, Chest N/A Computed Radiogr aphy 03/04/2021 7:16 AM CDT Narrative 03/04/2021 7:18 AM CDT EXAM DESCRIPTION: ?? XR CHEST 1 VIEW REASON FOR STUDY: ??Acute altered mental status in a patient with hyperglycemia (blood glucose greater than 600 on fingerstick) and patient's mother unsure if patient took insulin last night. ??Patient reportedly somnolent. ??No provided history of trauma. ??No provided chest complaints, though patient's boyfriend reportedly with COVID-19 infection. TECHNIQUE: ?? Frontal radiographic view of the chest acquired. COMPARISON: ?? Chest radiograph 11/15/2020 03/13/2021 FINDINGS: LUNGS/PLEURA: ??No focal consolidation. ??No pneumothorax. ??No pleural effusion. HEART/MEDIASTINUM: ??Heart size is normal. Normal mediastinal and hilar contours. HARDWARE/LINES/TUBES: ??None the chest. ??Bilateral dumbbell type nipple piercings. BONES: ??No acute abnormality. OTHER: ??No other significant finding. IMPRESSION: ?? 1. ??No radiographic evidence of acute cardiopulmonary process. 2. ??Chest radiography is insensitive for the detection of typical radiographic features of COVID-19 and should not replace specific viral testing. THIS IS AN ELECTRONICALLY VERIFIED FINAL REPORT 03/04/2021 7:18 AM - Electronically signed by Vasquez Castellano M.D. DESTINY: DESTINY D: ??03/04/2021 7:18 AM T: ??03/04/2021 7:18 AM Report ID: [id number] Reading Location: ??[id number] Procedure Note Vasquez Castellano MD - 03/04/2021 EXAM DESCRIPTION: XR CHEST 1 VIEW REASON FOR STUDY: Acute altered mental status in a patient withhyperglycemia (blood glucose greater than 600 on fingerstick) and patient's motherunsure if patient took insulin last night. Patient reportedly somnolent. Noprovided history of trauma. No provided chest complaints, though patient'sboyfriend reportedly with COVID-19 infection. TECHNIQUE: Frontal radiographic view of the chest acquired. COMPARISON: Chest radiograph 11/15/2020 03/13/2021 FINDINGS: LUNGS/PLEURA: No focal consolidation. No pneumothorax. No pleuraleffusion. HEART/MEDIASTINUM: Heart size is normal. Normal mediastinal and hilar contours. HARDWARE/LINES/TUBES: None the chest. Bilateral dumbbell type nipple piercings. BONES: No acute abnormality. OTHER: No other significant finding. IMPRESSION: 1. No radiographic evidence of acute cardiopulmonary process. 2. Chest radiography is insensitive for the detection of typicalradiographic features of COVID-19 and should not replace specific viral testing. THIS IS AN ELECTRONICALLY VERIFIED FINAL REPORT 03/04/2021 7:18 AM - Electronically signed by Vasquez Castellano M.D. DESTINY: DESTINY Report ID: [id number] Reading Location: [place] [address] us Lex Narvaez MD IMG XR PROCEDURES Chanell l Result * eGFR (03/04/2021 7:05 AM CDT) eGFR 48 mL/min/1.7 3 m2 TOMY SAHU ([place]) Comment: [...] interpretive data was last reviewed 2020 Blood 03/04/2021 7:05 AM CDT 03/04/2021 7:11 AM CDT us Lex Narvaez MD LAB BLOOD ORDERABLES F inal Result TOMY SAHU ([place]) 1 [facility] Department [place] [address] * (ABNORMAL) Urinalysis, microscopic only (03/04/2021 7:05 AM CDT) WBC, ur 0-5 0 - 5 /HPF [facility] ([place]) RBC, ur 0-2 0 - 2 /HPF [facility] ([place]) Epithelial cells, squamous, ur 1-5 0 - 5 /HPF [facility] ([place]) Mucous, ur Present(A) [facility] ([place]) Hyaline casts, ur 1-5 0 - 10 /LPF [facility] ([place]) Culture Reflex Comment Reflex conditions for urine culture (WBC >10) not met. [facility] ([place]) Urine, indwelling catheter 03/04/2021 7:05 AM CDT 03/04/2021 7:14 AM CDT us Lex Narvaez MD LAB URINE ORDERABLES F inal Result TOMY ASHU ([place]) 1 [facility] [place] [address] * (ABNORMAL) Differential, auto (03/04/2021 7:05 AM CDT) Neutrophil abs 18.8(H) 1.7 - 6.5 K/cumm [facility] ([place]) Imm gran abs 0.3(H) 0.0 - 0.1 K/cumm [facility] ([place]) Lymphocyte abs 0.9 0.8 - 3.3 K/cumm [facility] ([place]) Monocyte abs 2.4(H) 0.2 - 0.8 K/cumm [facility] ([place]) Eosinophil abs 0.0 0.0 - 0.5 K/cumm [facility] ([place]) Basophil abs 0.1 0.0 - 0.1 K/cumm [facility] ([place]) Neutrophil pct 83.7 % [facility] ([place]) Comment: Interpretive Data Percent cell count reference ranges are not reported, since discordance with absolute values may lead to misinterpretation of CBC data. Current Interpretive Data was last revised on 2017. Imm gran pct 1.5 % [facility] ([place]) Comment: Interpretive Data Percent cell count reference ranges are not reported, since discordance with absolute values may lead to misinterpretation of CBC data. Current Interpretive Data was last revised on 2017. Lymphocyte pct 4.0 % [facility] ([place]) Comment: Interpretive [...] Data was last revised on 2017. Blood 03/04/2021 7:05 AM CDT 03/04/2021 7:11 AM CDT us Lex Narvaez MD LAB BLOOD ORDERABLES F inal Result TOMY SAHU ([place]) 1 [facility] Department [place] [address] * (ABNORMAL) Urinalysis reflex to microscopic and culture Urine, indwelling catheter (03/04/2021 7:05AM CDT) Color, ur Yellow Yellow TOMY SAHU ([place]) Clarity, ur Clear Clear TOMY Frost ([place]) Specific gravity, ur 1.024 1.003 - 1.030 [facility] ([place]) pH, urine 5.0 [facility] ([place]) Protein, ur ql 1+(A) [...] will be performed. [facility] ([place]) Urine, indwelling catheter 03/04/2021 7:05 AM CDT 03/04/2021 7:14 AM CDT Narrative [facility] ([place]) - 03/04/2021 7:23 AM CDT ?? Urine pH is affected by diet, medications, systemic acid-base disturbances, and renal tubular function. ??pH may affect urinary stone formation. ??For example, urine pH below 6.0 may help reduce the tendency for calcium phosphate stones and pH greater than 6.0 may reduce the tendency for uric acid stone formation. Source: [facility] [employer]. Last revised 05-13-2017 us Lex Narvaez MD LAB MICROBIOLOGY - GEN ERAL ORDERABLES Final Result [facility] ([place]) 1 [facility] Department [place] [address] * (ABNORMAL) Comprehensive metabolic panel (03/04/2021 7:05 AM CDT) Sodium 135 135 - 145 mmol/L [facility] ([place]) Potassium, pl 5.6(H) 3.3 - 4.9 mmol/L [facility] ([place]) Chloride 96(L) 97 - 110 mmol/L [facility] ([place]) CO2 3(L) 22 - 32 mmol/L [facility] ([place]) Anion gap 36(H) 2 - 15 mmol/L [facility] ([place]) BUN 55(H) 8 - 25 mg/dL [facility] ([place]) Creatinine 1.51(H) 0.60 - 1.10 mg/dL [facility] ([place]) Glucose 601(C) 70 - 199 mg/dL [facility] ([place]) Comment: Critical Result called to and read back by Charisma RAO Charge, DATE: 2021-03-04 07:56:22 BY: Juhi Baez Interpretive Data Fasting glucose >/= 126 mg/dl [...] interpretive data was last revised 2017. Calcium 10.7(H) 8.5 - 10.3 mg/dL [facility] ([place]) Bilirubin, total 0.8 0.1 - 1.2 mg/dL [facility] ([place]) Protein, pl 8.0 6.5 - 8.5 g/dL [facility] ([place]) Albumin 4.9 3.5 - 5.0 g/dL [facility] ([place]) Alk phos 124 40 - 130 Units/L [facility] ([place]) ALT 14 7 - 45 Units/L [facility] ([place]) AST 14 10 - 45 Units/L [facility] ([place]) Comment: Hemolysis present. ??Results may be affected. Slightly Hemolyzed Specimen Blood 03/04/2021 7:05 AM CDT 03/04/2021 7:11 AM CDT us Lex Narvaez MD LAB BLOOD ORDERABLES F inal Result [facility] ([place]) 1 [facility] Department [place] [address] * (ABNORMAL) CBC with auto differential (03/04/2021 7:05 AM CDT) WBC 22.5(H) 3.8 - 9.9 K/cumm [facility] ([place]) Hgb 13.4 11.9 - 15.5 g/dL [facility] ([place]) Hct 44.0 35.6 - 45.5 % [facility] ([place]) Plt 674(H) 150 - 400 K/cumm [facility] ([place]) MPV 9.3 9.1 - 12.3 fL [facility] ([place]) RBC 5.00 3.90 - 5.20 M/cumm [facility] ([place]) MCV 88.0 81.3 - 96.4 fL [facility] ([place]) MCH 26.8(L) 27.1 - 33.3 pg [facility] ([place]) MCHC 30.5(L) 32.3 - 35.7 g/dL [facility] ([place]) RDW CV 17.3(H) 11.1 - 14.9 % [facility] ([place]) RDW SD 55.4(H) 35.7 - 48.1 fL [facility] ([place]) NRBC abs 0.00 0.00 - 0.01 K/cumm [facility] ([place]) Blood 03/04/2021 7:05 AM CDT 03/04/2021 7:11 AM CDT us Lex Narvaez MD LAB BLOOD ORDERABLES F inal Result [facility] ([place]) 1 [facility] Department [place] [address] * ECG 12 lead (03/04/2021 6:54 AM CDT) 03/04/2021 6:54 AM CDT Narrative [facility] - 03/04/2021 9:03 AM CDT Vent Rate: 156 bpm RR Interval: 384 msec HI Interval: 66 msec QRS Duration: 78 msec QT Interval: 248 msec QTC Interval: 336 msec P-R-T [place]: 144 - 151 - 156 degrees Sinus TACHYCARDIA WITH SHORT HI INTERVAL, POSSIBLE ectopic Limb lead reversal Electronically Signed By: Dr Mann Gonzalez us Lex Narvaez MD ECG ORDERABLES Edited Result - Final [facility] * (ABNORMAL) POCT glucose (03/04/2021 6:48 AM CDT) Glucose, POC 488(C) 71 - 98 mg/dL TOMY SAHU ([place]) Comment:Glu2: RN/MD Notified Blood 03/04/2021 6:48 AM CDT 03/04/2021 6:48 AM CDT Notinfile Unknown LAB POCT ORDERABLES - DEVICE F inal Result TOMY SAHU ([place]) 1 [facility] Department [place] [address] * (ABNORMAL) Blood gas, arterial (03/04/2021 6:46 AM CDT) pH, Art 7.12(C) 7.35 - 7.45 TOMY SAHU ([place]) Comment:Critical result call ed to and read back by Charisma kaba (er) on 03/04/2021 06:59:25 CDT to karen mcgrath. PCO2, Arterial 11(C) 35 - 45 mmHg TOMY SAHU ([place]) Comment:Critical result call ed to and read back by Charisma kaba (er) on 03/04/2021 06:59:25 CDT to karen mcgrath. PO2, Arterial 133(H) 83 - 108 mmHg TOMY SAHU ([place]) HCO3 Art (Calculated) 4(L) 20 - 30 mmol/L TOMY SAHU ([place]) BE, art -26 mmol/L TOMY SAHU ([place]) Comment: Interpretive Data No Reference Range Established Current Interpretive Data was last revised on 2017 O2 Sat Art (Measured) 98(H) 90 - 95 % TOMY SAHU ([place]) Blood (Blood, Arterial) 03/04/2021 6:46 AM CDT 03/04/2021 6:50 AM CDT us Lex Narvaez MD LAB BLOOD ORDERABLES F inal Result [facility] ([place]) 1 [facility] Department [place] [address] documented in this encounter Visit Diagnoses Diagnosis Altered mental status- Primary Altered mental status, unspecified altered mental status type Diabetic ketoacidosis with coma associated with type 1 diabetes mellitus (CMS/HCC) (HCC) documented in this encounter Admitting Diagnoses Diagnosis Altered mental status documented in this encounter Administered Medications Inactive Administered Medications - up to 3 most recent administrations Medication Order MAR Action Action Date Dose Rate Site acetaminophen (TYLENOL) tablet 650 mg 650 mg, oral, Every 4 hours PRN, 1st line for pain, fever, Starting on Wed03/04/21 at 1729 dextrose (D10W) 10% bolus 250 mL 250 mL, intravenous, at 1,000 mL/hr, Administer over 15 Minutes, Every 15 min PRN, blood glucose less than 70 mg/dL and UNABLE to swallow/take PO glucose/juice., Starting on Wed03/05/21 at 1110, After treatment for hypoglycemia, recheck BG followed by treatment every 15 minutes until the BG is greater than 100 mg/dL. Then check BG 1 hour post treatment. If BG is less than 100 mg/dL, repeat Q15 minute BG checks and treatment. Call MD for each episode of hypoglycemia., Indications: hypoglycemic disorderIndications:hypogl ycemic disorder dextrose 5% and sodium chloride 0.45% infusion (premix) 75 mL/hr, intravenous, Continuous, Starting on Wed03/04/21 at 1800 Rate/Dose Change 03/05/2021 11:52 AM CDT 75 mL/hr 75 mL/hr New Bag 03/05/2021 10:47 AM CDT 100 mL/hr 100 mL/hr Rate/Dose Verify 03/05/2021 7:30 AM CDT 125 mL/hr 125 mL/ hr dextrose 5% infusion 100 mL/hr, intravenous, Continuous, Starting on Wed03/04/21 at 0634, Start when blood glucose less than 250 mg/dL and decrease rate of previous IV fluid infusion order. Notify MD when blood glucose less than 250 mg/dL and adjusting IV fluids. New Bag 03/04/2021 9:22 AM CDT 100 mL/hr 100 mL/hr dextrose gel in packet 15 g 15 g, oral, Every 15 min PRN, low blood sugar, blood glucose less than 70 mg/dL, Starting on Wed03/05/21 at 1110, If patient is alert and able to [...] of hypoglycemia., Indications: hypoglycemic disorderIndications:hypog lycemic disorder enoxaparin (LOVENOX) syringe 40 mg 40 mg, subcutaneous, Daily (for enoxaparin), First dose on Wed03/04/21 at 2100, Indications: Deep Vein Thrombosis PreventionIndications:Rachel p Vein Thrombosis Prevention famotidine (PEPCID) tablet 20 mg 20 mg, oral, 2 times daily, First dose on Wed03/07/21 at 1130, This medication, famotidine 20 mg Q12hrs, was changed from IV route to oral route per protocol. Patient is able to tolerate PO per MD notes, has had >=24hrs of IV therapy. glucagon injection 1 mg 1 mg, intramuscular, Every 30 min PRN, low blood sugar, blood glucose less than 70 mg/dL AND no IV access AND unable to take PO glucose/juice., Starting on Wed03/05/21 at 1110, After Glucagon is administered, position patient on [...] (3 mL) pen injection 10 Units 10 Units (rounded from 9.9 Units = 0.15 Units/kg ? 66 kg), subcutaneous, Every 12 hours scheduled, First dose (after last modification) on Wed03/05/21 at 1745, Do not hold if NPO. Attach new pen needle required for each administration. Each new pen needle must be primed with 2 units prior to administration. Do not mix with other insulins., Indications: Diabetes MellitusIndications:Diabe celia Mellitus Given 03/07/2021 8:05 AM CDT 10 Units Right Upper Arm Given 03/06/2021 8:59 PM CDT 10 Units Le ft Upper Arm Given 03/06/2021 7:58 AM CDT 10 Units Le ft Lower Abdomen insulin lispro (HumaLOG, ADMELOG) 100 unit/mL pen injection 0-4 Units 0-4 Units, subcutaneous, Nightly, First dose on Wed03/05/21 at 2100, Blood glucose mg/dL: 199 or [...] to administration., Indications: Diabetes MellitusIndications:Diabetes Mellitus Given 03/06/2021 8:58 PM CDT 2 Units Left Upper Arm insulin lispro (HumaLOG, ADMELOG) 100 unit/mL pen injection 0-5 Units 0-5 Units, subcutaneous, 3 times daily with meals, First dose on Wed03/05/21 at 1200, Blood glucose mg/dL: 149 or [...] to administration., Indications: Diabetes MellitusIndications:Diabetes Mellitus Given 03/07/2021 12:03 PM CDT 3 Units Left Upper Arm Given 03/07/2021 8:08 AM CDT 2 Units Ri ght Upper Arm Given 03/06/2021 12:22 PM CDT 1 Units L eft Lower Abdomen insulin lispro (HumaLOG, ADMELOG) 100 unit/mL pen injection 3 Units 3 Units (rounded from 3.3 Units = 0.05 Units/kg ? 66 kg), subcutaneous, 3 times daily with meals, First dose on Wed03/05/21 at 1200, If BG greater than or [...] to administration., Indications: Diabetes MellitusIndications:Diabetes Mellitus Given 03/07/2021 4:45 PM CDT 3 Units Right Upper Arm Given 03/07/2021 12:01 PM CDT 3 Units L eft Upper Arm Given 03/07/2021 8:06 AM CDT 3 Units Ri ght Upper Arm insulin regular (HumuLIN R, NovoLIN R) 100 Units in sodium chloride 0.9% 100 mL (1 Units/mL) infusion 0-30 Units/hr (0-30 mL/hr), 1 units/mL, intravenous, Titrated, Starting on Wed03/04/21 at 0634, Until Wed03/04/21 at 1728, Indications: Hyperglycemia, Desired Range (mg/dL): 130-180 general patients, Multiplier: 0.01, NON-WEIGHT BASED DOSING Adjust rate per GlucoStabilizer program for dka order When new IV tubing is used, completely prime the tubing. Once primed, waste an additional 20 ml of insulin infusion using the IV pump prior to connecting to patient., RoutineIndications:Hyperglyc emia Rate/Dose Change 03/04/2021 5:50 PM CDT 0.7 Units/hr 0.7 mL/hr Rate/Dose Change 03/04/2021 4:29 PM CDT 2.1 Units/hr 2.1 m L/hr Rate/Dose Change 03/04/2021 2:13 PM CDT 6.14 Units/hr 6.14 mL/hr insulin regular (HumuLIN R, NovoLIN R) 100 Units in sodium chloride 0.9% 100 mL (1 Units/mL) infusion 0-30 Units/hr (0-30 mL/hr), 1 units/mL, intravenous, Titrated, Starting on Wed03/04/21 at 1800, Until Wed03/05/21 at 1105, Indications: Hyperglycemia, Desired Range (mg/dL): 130-180 general patients, Multiplier: 0.02, NON-WEIGHT BASED DOSING Adjust rate per GlucoStabilizer program for dka order When new IV tubing is used, completely prime the tubing. Once primed, waste an additional 20 ml of insulin infusion using the IV pump prior to connecting to patient., RoutineIndications:Hyperglyc emia Rate/Dose Change 03/05/2021 9:39 AM CDT 1.6 Units/hr 1.6 mL/hr Rate/Dose Change 03/05/2021 8:33 AM CDT 4.2 Units/hr 4.2 m L/hr Rate/Dose Change 03/05/2021 7:30 AM CDT 3.2 Units/hr 3.2 m L/hr ondansetron (ZOFRAN) injection 4 mg 4 mg, intravenous, Administer over 2 Minutes, Once, On Wed03/04/21 at 0920, For 1 dose Given 03/04/2021 9:30 AM CDT 4 mg ondansetron (ZOFRAN) injection 4 mg 4 mg, intravenous, Administer over 2 Minutes, Every 4 hours PRN, nausea, vomiting, Starting on Wed03/04/21 at 1729, Indications: Prevention of Post-Operative Nausea and VomitingIndications:Prevention of Post-Operative Nausea and Vomiting potassium chloride ER (KLOR-CON) extended release tablet 40 mEq 40 mEq, oral, Once, On Wed03/07/21 at 0845, For 1 dose, Do not crush, chew, cut, dissolve, open or otherwise manipulate tablet/capsule. Given 03/07/2021 10:37 AM CDT 40 mEq sodium chloride 0.45% infusion 150 mL/hr, intravenous, Continuous, Starting on Wed03/04/21 at 0634, Decrease rate to 50 mL/hr when blood glucose less than 250 mg/dL. Restarted 03/04/2021 8:21 AM CDT 150 mL/hr 150 mL/hr New Bag 03/04/2021 8:01 AM CDT 150 mL/hr 150 mL/hr sodium chloride 0.9% bolus 2,000 mL 2,000 mL, intravenous, at 1,000 mL/hr, Administer over 2 Hours, Once, On Wed03/04/21 at 0634, For 1 dose New Bag 03/04/2021 6:58 AM CDT 2,000 mL 1000 mL/hr documented in this encounter Active and Recently Administered Medications Times are shown in CDT. Scheduled Medication Order 03/05/2021 03/06/2021 03/07/2021 enoxaparin (LOVENOX) syringe 40 mg 40 mg, subcutaneous, Daily (for enoxaparin), First dose on Wed03/04/21 at 2100, Indications: Deep Vein Thrombosis Prevention 2108 (Not Given - Provider: Pascual Perry RN - Reason: Patient/family refused) 2004 (Not Given - Provider: Shantelle Melvin RN - Reason: Patient/family refused) famotidine (PEPCID) tablet 20 mg 20 mg, oral, 2 times daily, First dose on Wed03/07/21 at 1130, This medication, famotidine 20 mg Q12hrs, was changed from IV route to oral route per protocol. Patient is able to tolerate PO per MD notes, has had >=24hrs of IV therapy. 1207 (Not Given - Provider: Marisela Augustine RN - Reason: Patient/family refused) insulin glargine (LANTUS, BASAGLAR, SEMGLEE) 100 unit/mL (3 mL) pen injection 10 Units 10 Units (rounded from 9.9 Units = 0.15 Units/kg ? 66 kg), subcutaneous, Every 12 hours scheduled, First dose (after last modification) on Wed03/05/21 at 1745, Do not hold if NPO. Attach new pen needle required for each administration. Each new pen needle must be primed with 2 units prior to administration. Do not mix with other insulins., Indications: Diabetes Mellitus 181 (Given - Provider: Bree Marino RN) 0758 (Given - Provider: Kulwant Lantigua RN)2058 (Given - Provider: Shantelle Melvin, MARY) 08 (Given - Provider: Marisela Augustine RN) insulin lispro (HumaLOG, ADMELOG) 100 unit/mL pen injection 0-4 Units 0-4 Units, subcutaneous, Nightly, First dose on Wed03/05/21 at 2100, Blood glucose mg/dL: 199 or [...] units prior to administration., Indications: Diabetes Mellitus 2108 (Not Given - Provider: Pascual Perry RN - Reason: Order parameters not met) 2057 (Given - Provider: Shantelle Melvin, MARY) insulin lispro (HumaLOG, ADMELOG) 100 unit/mL pen injection 0-5 Units 0-5 Units, subcutaneous, 3 times daily with meals, First dose on Wed03/05/21 at 1200, Blood glucose mg/dL: 149 or [...] units prior to administration., Indications: Diabetes Mellitus 1214 (Not Given - Provider: Bree Marino RN - Reason: Order parameters not met) 0757 (Given - Provider: Kulwant Lantigua RN)1222 (Given - Provider: Kulwant Lantigua RN)1723 (Not Given - Provider: Kulwant Lantigua RN - Reason: Order parameters not met) 0808 (Given - Provider: Marisela Augustine RN)1203 (Given - Provider: Marisela Augustine RN)1644 (Not Given - Provider: Marisela Augustine RN - Reason: Order parameters not met - Comment: FS 127)1700 (Not Given - Provider: Marisela Augustine RN - Reason: Order parameters not met) insulin lispro (HumaLOG, ADMELOG) 100 unit/mL pen injection 3 Units 3 Units (rounded from 3.3 Units = 0.05 Units/kg ? 66 kg), subcutaneous, 3 times daily with meals, First dose on Wed03/05/21 at 1200, If BG greater than or [...] units prior to administration., Indications: Diabetes Mellitus 1612 (Given - Provider: Bree Marino RN - Comment: Didn't eat meal, unable to eat)1800 (Due) 0757 (Given - Provider: Kulwant Lantigua RN)1222 (Given - Provider: Kulwant Lantigua RN)1725 (Hold - Provider: Kulwant Lantigua RN - Reason: Other - Comment: eating less than 50% of meals) 0806 (Given - Provider: Marisela Aguustine RN)1201 (Given - Provider: Marisela Augustine RN)1645 (Given - Provider: Marisela Augustine RN - Comment: FS 127) potassium chloride ER (KLOR-CON) extended release tablet 40 mEq (COMPLETED) 40 mEq, oral, Once, On Wed03/07/21 at 0845, For 1 dose, Do not crush, chew, cut, dissolve, open or otherwise manipulate tablet/capsule. 1037 (Given - Provider: Marisela Augustine RN - Comment: patient refused earlier) Continuous Medication Order 03/05/2021 03/06/2021 03/07/2021 dextrose 5% and sodium chloride 0.45% infusion (premix) (CANCELED) 75 mL/hr, intravenous, Continuous, Starting on Wed03/04/21 at 1800 0205 (New Bag - Provider: Catarina Castro RN)0409 (Rate/Dose Verify - Provider: Catarina Castro RN)0730 (Rate/Dose Verify - Provider: Bree Marino RN)1047 (New Bag - Provider: Bree Marino RN)1152 (Rate/Dose Change - Provider: Bree Marino RN)1623 (Stopped - Provider: Bree Marino RN) insulin regular (HumuLIN R, NovoLIN R) 100 Units in sodium chloride 0.9% 100 mL (1 Units/mL) infusion (CANCELED) 0-30 Units/hr (0-30 mL/hr), 1 units/mL, intravenous, Titrated, Starting on Wed03/04/21 at 1800, Until Wed03/05/21 at 1105, Indications: Hyperglycemia, Desired Range (mg/dL): 130-180 general patients, Multiplier: 0.02, NON-WEIGHT BASED DOSING Adjust rate per GlucoStabilizer program for dka order When new IV tubing is used, completely prime the tubing. Once primed, waste an additional 20 ml of insulin infusion using the IV pump prior to connecting to patient., Routine 0015 (Rate/Dose Change - Provider: Catarina Castro RN - Comment: fsbs 126)0208 (Rate/Dose Change - Provider: Catarina Castro RN - Comment: fsbs 142)0306 (Rate/Dose Change - Provider: Catarina Castro RN - Comment: fsbs 119)0409 (Rate/Dose Change - Provider: Catarina Castro RN - Comment: fsbs 117)0526 (Rate/Dose Change - Provider: Catarina Castro RN - Comment: fsbs 101)0637 (Rate/Dose Change - Provider: Catarina Castro RN - Comment: per glucostabilizer, fsbs 139)0700 (Rate/Dose Verify - Provider: Bree Marino RN)0730 (Rate/Dose Change - Provider: Bree Marino RN)0833 (Rate/Dose Change - Provider: Bree Marino RN)0939 (Rate/Dose Change - Provider: Bree Marino RN)1145 (Stopped - Provider: Bree Marino RN) PRN Medication Order 03/05/2021 03/06/2021 03/07/2021 acetaminophen (TYLENOL) tablet 650 mg 650 mg, oral, Every 4 hours PRN, 1st line for pain, fever, Starting on Wed03/04/21 at 1729 dextrose (D10W) 10% bolus 250 mL(Linked Group 1) 250 mL, intravenous, at 1,000 mL/hr, Administer over 15 Minutes, Every 15 min PRN, blood glucose less than 70 mg/dL and UNABLE to swallow/take PO glucose/juice., Starting on Wed03/05/21 at 1110, After treatment for hypoglycemia, recheck BG followed [...] glucose less than 70 mg/dL, Starting on Wed03/05/21 at 1110, If patient is alert and able to [...] unable to take PO glucose/juice., Starting on Wed03/05/21 at 1110, After Glucagon is administered, position patient on [...] immediately following reconstitution. ondansetron (ZOFRAN) injection 4 mg 4 mg, intravenous, Administer over 2 Minutes, Every 4 hours PRN, nausea, vomiting, Starting on Wed03/04/21 at 1729, Indications: Prevention of Post-Operative Nausea and Vomiting 0038 (Not Given - Provider: Catarina Castro RN - Reason: Patient/family refused) Linked Groups Order Group 1: dextrose gel in packet 15 gJump to med 15 g, oral, Every 15 min PRN, low blood sugar, blood glucose less than 70 mg/dL, Starting on Wed03/05/21 at 1110, If patient is alert and able to [...] UNABLE to swallow/take PO glucose/juice., Starting on Wed03/05/21 at 1110, After treatment for hypoglycemia, recheck BG followed [...] Date famotidine (PEPCID) tablet 20 mg 1 03/07/20 21 potassium chloride ER (KLOR- CON) extended release tablet 40 mEq 1 03/07/2021 dextrose (D10W) 10% bolus 250 mL 1 03/05/20 21 dextrose gel in packet 15 g 1 03/05/2021 glucagon injection 1 mg 1 03/05/2021 insulin glargine (LANTUS, BA SAGLAR, SEMGLEE) 100 unit/mL (3 mL) pen injection 10 Units 1 03/05/2021 acetaminophen (TYLENOL) tablet 650 mg 1 06/2020 dextrose (D10W) 10% bolus 1-500 mL 1 2020 enoxaparin (LOVENOX) syringe 40 mg 1 2020 famotidine (PEPCID) injection 20 mg 1 03/04 insulin regular bolus from bag 1-10 Units 1 03/04/2021 ondansetron (ZOFRAN) injection 4 mg 1 03/04 potassium chloride 40 mEq in sodium chloride 0.9% 500 mL IVPB 1 03/04/2021 Lab Orders Without Results Count Last Ordered D ate First Ordered Date POCT GLUCOSE DEVICE 7 03/07/2021 03/05/20 21 Nursing Count Last Ordered Date First Orde red Date INSERT KAUR CATHETER 1 03/04/2021 IV Count Last Ordered Date First Orde red Date INSERT PERIPHERAL IV 1 03/04/2021 ADT Patient Update Count Last Ordered Date Firs t Ordered Date ED IP DECISION TO ADMIT 1 03/04/2021 documented in this encounter Additional Health Concerns Infection Onset Date Last Indicated Resolved Time COVID: Suspected 03/04/2021 03/04/2021 03/04/2021 8:41 AM CDT documented as of this encounter 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
--- OUTSIDE RECORDS SUMMARY | 2024-05-10 18:38 | XMS_ITS | Encounter Summary ---
Author Organization [facility] Healthcare Address [address] [place] [address] Care Team Providers Care Unit Educator Name Role Phone Carrie Joseph Primary Care Provider + Warren Phillips MD Unavailable [phone] Reason for Referral * Diagnostic Imaging (Routine) - Closed Specialty Diagnoses / Procedures Referred By Rachael frey Referred To Contact Diagnoses Supervision of high-risk , unspecified trimester Procedures Ob Limited Yumiko Madden MD [address] [facility] [address] [address] Phone: tel: fax: [facility] (All Locations) Referral ID Status Reason Start Date Expiration Date Visits Re quested Visits Authorized [id number] Closed 03/07/2020 04/06/2021 1 1 NSIVE CARE ANAESTHETIST Reason for Visit * Diagnostic Imaging (Routine) - Closed Specialty Diagnoses / Procedures Referred By Rachael frey Referred To Contact Diagnoses Supervision of high-risk , unspecified trimester Procedures US Ob Limited Yumiko Madden MD [address] [facility] [address] [place] [address] Phone: tel: fax: [facility] (All Locations) Referral ID Status Reason Start Date Expiration Date Visits Re quested Visits Authorized [id number] Closed 03/07/2020 04/06/2021 1 1 Encounter Details Date Type Department Care Team (Latest Contact Info) Description 03/26/2020 2:30 PM INTENSIVE CARE ANAESTHETIST - 03/26/2020 11:59 PM INTENSIVE CARE ANAESTHETIST Hospital Encounter 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 Gender Identity Not on file Sexual Orientation Not on file documented as of this encounter Medications at Time of Discharge insulin lispro (HumaLOG) 100 unit/mL injection Inject under the skin 3 (three) times a day before meals Uses per sliding scale 1 unit per every 7-8 grams of carb max of 50 units per day amoxicillin-clavu lanate (AUGMENTIN) 875-125 mg per tablet TAKE 1 TABLET BY MOUTH EVERY 12 HOURS FOR 2 DAYS 03/23/2020 11/16/2020 folic acid (FOLVITE) 1 mg tablet TAKE 3 TABLETS BY MOUTH ONCE DAILY 03/22/2020 11/16/2020 insulin glargine (LANTUS,BASAGLAR) 100 unit/mL (3 mL) insulin pen Inject 14 Units under the skin daily 11/16/2020 insulin syringe-needle U-100 0.3 mL 31 gauge [...] Name Priority Date/Time Associated Diagnosis Comments US OB LIMITED Schedule Routine, Read Routine (OP Routine) 03/26/2020 2:30 PM INTENSIVE CARE ANAESTHETIST Supervision of high-risk , unspecified trimester documented in this encounter Results * US Ob Limited (03/26/2020 2:30 PM INTENSIVE CARE ANAESTHETIST) Anatomical Region Laterality Modality Abdomen N/A Ultrasound 03/26/2020 2:43 PM INTENSIVE CARE ANAESTHETIST Narrative 03/26/2020 3:36 PM INTENSIVE CARE ANAESTHETIST There are no Discrete Measurement Components for this test result - Please see .pdf Procedure Note Taylor Stevenson MD - 03/26/2020 There are no Discrete Measurement Components for this test result - Pleasesee .pdf us Yumiko Madden MD IMG OB US PROCEDUR ES Final Result documented in this encounter Visit Diagnoses Diagnosis Supervision of high-risk , unspecified trimester documented in this encounter Care Teams Unit Educator Relationship Specialty Start Date End Date Carrie Joseph PA [address] [place] [address] PCP - General 10/04/18 07/19/21 Warren Phillips MD [address] [place] [address] Consulting Physician Gastroenterology 02/16/19 documented as of this encounter
--- OUTSIDE RECORDS SUMMARY | 2024-05-10 18:38 | XMS_ITS | Encounter Summary ---
Author Organization [facility] Healthcare Address [address] [place] [address] Care Team Providers Care Manager It Security Name Role Phone Carrie Joseph Primary Care Provider + Warren Phillips MD Unavailable [phone] Reason for Visit * Reason Onset Date Comments transfer to [facility] 03/20/2020 Encounter Details Date Type Department Care Team (Late st Contact Info) Description 03/20/2020 Documentation Obstetrics and Gynecology Clinic [address] 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 Explained that request has to be made by an MD. Provided my name & title & instructed her that is MD did not have transfer hotline number Her could call me & I would provide it but it was an MD-MD line only ([phone]) Per chart it appears pt was also seen at [facility] & left AMA. Pt is very early in her , washaving US tomorrow to check viability. Mom reports she is having DKA issues so not OB related. Mom informed that she would go to main ER if needed to be seen this esha in & they would call OB down to consult. Mom Verbalized understanding of all. 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
--- OUTSIDE RECORDS SUMMARY | 2024-05-10 18:38 | XMS_ITS | Encounter Summary ---
Author Organization [facility] Healthcare Address [address] [place] [address] Care Team Providers Care Radioactive Waste Disposal Dispatcher Name Role Phone Carrie Joseph Primary Care Provider + Warren Phillips MD Unavailable [phone] Reason for Visit * Reason Comments Vomiting Hyperglycemia Encounter Details Date Type Department Care Team (Latest Contact Info) Description 11/15/2020 6:36 PM CDT - 11/18/2020 3:34 PM CDT Hospital Encounter [facility] [address] [place] [address] Seamus Bateman MD [address] [place] [address] Brigida Delgado MD [address] [place] [address] [place] [address] Ayana Prado MD [address] [place] [address] [place] [address] Jhonatan Rey MD [address] [place] [address] [place] [address] DKA (diabetic ketoacidoses) (Primary Dx) Discharge Disposition: Discharge to home [...] on file 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 Gender Identity Not on file Sexual Orientation Not on file documented as of this encounter Last Filed Vital Signs Vital Sign Reading Time Taken Comments Blood Pressure 111/79 11/18/2020 2:59 PM CDT Pulse 92 11/18/2020 2:59 PM CDT Temperature 36.2 ??C (97.2 ??F) 11/18/2020 2:59 PM CD T Respiratory Rate 18 11/18/2020 2:59 PM CDT Oxygen Saturation 99% 11/18/2020 2:59 PM CDT Inhaled Oxygen Concentration - - Weight 73.5 kg (162 lb) 11/16/2020 7:00 AM CDT Height 154.9 cm (5' 1 ) 11/16/2020 7:00 AM CDT Body Mass Index 30.61 11/16/2020 7:00 AM CDT documented in this encounter Discharge Diagnoses Diagnosis Type 1 diabetes mellitus with ketoacidosis without coma (HCC) - TYPE 1 DIABETES MELLITUS WITH KETOACIDOSIS WITHOUT COMA Gastroparesis - GASTROPARESIS 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 (HCC) - TYPE 1 DIABETES MELLITUS WITH DIABETIC AUTONOMIC (POLY)NEUROPATHY Cannabis abuse, uncomplicated - CANNABIS ABUSE, UNCOMPLICATED Major depressive disorder, single episode, unspecified - MAJOR DEPRESSIVE DISORDER, SINGLE EPISODE, UNSPECIFIED Patient's other noncompliance with medication regimen - PATIENT'S OTHER NONCOMPLIANCE WITH MEDICATION REGIMEN Nausea with vomiting, unspecified - NAUSEA WITH VOMITING, UNSPECIFIED documented in this encounter Discharge Summaries * Jhonatan Rey MD - 11/18/2020 3:34 PM CDT Inpatient Discharge Summary BRIEF OVERVIEW Admitting Provider: Ayana Prado MD Discharge Provider: No att. providers found Primary Care Physician at Discharge: Carrie Joseph PA [phone] Admission Date: 11/15/2020 Discharge Date: 11/25/2020 Date of Service: 11/18/2020 Primary Discharge Diagnosis: DKA (diabetic ketoacidoses) ([facility]) Nausea and vomiting of unknown etiology Secondary Discharge Diagnosis: Principal Problem: DKA (diabetic ketoacidoses) ([facility]/HCC) Active Problems: Cannabinoid hyperemesis syndrome Depression Diabetic gastroparesis ([facility]) Diabetic ketoacidosis without coma associated with type 1 diabetes mellitus ([facility]) Noncompliance with medication regimen Intractable vomiting Marijuana abuse DETAILS OF HOSPITAL STAY Presenting Problem/History of Present Illness: DKA (diabetic ketoacidoses) ([facility]) Hospital Course: Admitted with very mild DKA, nausea and vomiting for few days. She declined all imaging and medications , never had eye to eye contact with me and then decided toleave AMA. Active Issues Requiring Follow-up: Nausea and vomiting Test Results Pending at Discharge: Operative Procedures Performed: Other Procedures: None Pertinent Test Results: None Discharge Details Physical Exam at Discharge: Discharge Condition: improved and stable. Pulse: 92 Resp: 18 BP: 111/79 Temp: 36.2 ??C (97.2 ??F) Pertinent Exam Findings at Discharge: None Discharge Disposition: Left Against Medical Advice Code Status at Discharge: Prior Discharge Instructions: Discharge Medications: Your medication list CONTINUE taking these medications insulin syringe-needle U-100 0.3 mL 31 gauge x 5/16 syringe TechLITE Insuln Syr(half unit) 0.3 mL 31 gauge x 5/16 syringe Generic drug: insulin syr/ndl U100 half jeremias ASK your doctor about these medications insulin glargine 100 unit/mL (3 mL) pen for injection Commonly known as: LANTUS, BASAGLAR, SEMGLEE Ask about: Which instructions should I use? insulin lispro 100 unit/mL vial for injection Commonly known as: HumaLOG, ADMELOG OneTouch Verio test strips strip Generic drug: blood glucose diagnostic Outpatient Follow-Up: No future appointments. Discharge Process duration is 35 minutes. documented in this encounter Medications at Time [...] documented in this encounter Progress Notes * Shonda Mccullough RN - 11/18/2020 12:32 PM CDT ALEXANDR Initial Assessment Interview Note Information Obtained From: Patient (11/18/20 1220) Admission Source: ED-Self Impression: Hyperglycemic Plan Includes: Assessment / Discharge planning Primary Source of Transportation: Pt states her mother or her boyfriend will provide transportationat d/c. Health Insurance Coverage: [employer] Prescription Coverage: Yes [facility] Primary Care Provider: Carrie Joseph PA Prior to Admission: Primary Caregiver: Self Support System: Spouse/Significant Other Home Care Services: No Durable Medical Equipment: Diabetic Supplies Living Arrangements: Spouse/significant other, Children Type of Residence: Apartment Steps in home? : Yes, Outside of home (11/18/20 1220) Potential discharge needs include: Discussed d/c plan with pt. Goal is to return home where she lives with her boyfriend and daughter. She is employed, independent and has no needs at this time. Barrier to d/c is resolution of hyperglycemia. CM will follow for potential needs. Dialysis: Behavioral Health Services: Patient expects to be Discharged to: Private residence, (11/18/20 1220) Additional Information: Patient's Identified Problem/Goal Problem: Ensure acute medical needs are met and that patient has a safe discharge plan. Goal: Secure a discharge plan that patient/family are agreeable with and ensure patient has continuum of care. Case management will follow for discharge planning and send referrals as needed. Goals include: To assure continuity of care, To maximize coping skills, To assure patient is in a safe environment and To assure access to community resources. Plan includes: 1. Collaboration with patient, MD, direct care nurse, Tinsmith Apprentice, Nurse Coordinator and other members of the health care team to assure needed interventions completed. 2. Return patient to optimal level of self-care post discharge. 3. Pharmacy Scheduler will follow for Discharge Planning - interventions as needed 4. Anticipated level of care at discharge 5. Planned Discharge Disposition Shonda Mccullough RN * Jhonatan Rey MD - 11/18/2020 8:46 AM CDT General Medicine Daily Progress SUBJECTIVE Chief complaint of Nausea and vomiting. Interval History: Still the same ausea and vomiting OBJECTIVE Vitals: 24hr Min/Max: Temp Min: 36.7 ??C (98.1 ??F) Max: 37 ??C (98.6 ??F) Pulse Min: 78 Max: 124 BP Min: 116/71 Max: 149/97 Resp Min: 14 Max: 18 SpO2 Min: 96 % Max: 100 % Most Recent : Vitals: 11/18/20 0825 BP: 135/93 Pulse: 102 Resp: 18 Temp: 36.8 ??C (98.2 ??F) SpO2: 96% I/O last 2 completed shifts: In: 1131.2 [I.V.:1131.2] Out: 700 [Urine:500; Emesis/NG output:200] No intake/output data recorded. Physical Exam: Eyes: EOMI, ZORAIDA, sclare non icteric Neck: supple, no nuchal ridigity, no gross carotid bruits appreciated Pharynx: No gross oral lesion, tongue midline, mucosa moist Lungs CTA Heart: [id number] Abd: +BS, Non Tender, Non distended, No gross hepatomegaly Lower Ext: No gross edema Neuro: No new gross deficits appreciated Musculoskeletal: no gross joint erythema, edema, tenderness Skin: No lesions Lab/Current Medication Review: Recent Results (from the past 24 hour(s)) POCT glucose Collection Time: 11/17/20 11:41 AM Result Value Ref Range Glucose, POC 184 (H) 71 - 98 mg/dL POCT glucose Collection Time: 11/17/20 5:02 PM Result Value Ref Range Glucose, POC 173 (H) 71 - 98 mg/dL POCT glucose Collection Time: 11/17/20 8:12 PM Result Value Ref Range Glucose, POC 147 (H) 71 - 98 mg/dL POCT glucose Collection Time: 11/18/20 12:03 AM Result Value Ref Range Glucose, POC 173 (H) 71 - 98 mg/dL POCT glucose Collection Time: 11/18/20 4:04 AM Result Value Ref Range Glucose, POC 228 (H) 71 - 98 mg/dL Comprehensive metabolic panel Collection Time: 11/18/20 4:09 AM Result Value Ref Range Sodium 132 (L) 135 - 145 mmol/L Potassium, pl 3.8 3.3 - 4.9 mmol/L Chloride 97 97 - 110 mmol/L CO2 22 22 - 32 mmol/L Anion gap 13 2 - 15 mmol/L BUN 8 8 - 25 mg/dL Creatinine 0.29 (L) 0.60 - 1.10 mg/dL Glucose 212 (H) 70 - 199 mg/dL Calcium 8.8 8.5 - 10.3 mg/dL Bilirubin, total 0.4 0.1 - 1.2 mg/dL Protein, pl 6.2 (L) 6.5 - 8.5 g/dL Albumin 3.8 3.5 - 5.0 g/dL Alk phos 70 40 - 130 Units/L ALT 9 7 - 45 Units/L AST 16 10 - 45 Units/L CBC with auto differential Collection Time: 11/18/20 4:09 AM Result Value Ref Range WBC 7.7 3.8 - 9.9 K/cumm Hgb 10.9 (L) 11.9 - 15.5 g/dL Hct 34.5 (L) 35.6 - 45.5 % Plt 347 150 - 400 K/cumm MPV 10.4 9.1 - 12.3 fL RBC 4.29 3.90 - 5.20 M/cumm MCV 80.4 (L) 81.3 - 96.4 fL MCH 25.4 (L) 27.1 - 33.3 pg MCHC 31.6 (L) 32.3 - 35.7 g/dL RDW CV 15.6 (H) 11.1 - 14.9 % RDW SD 45.6 35.7 - 48.1 fL NRBC abs 0.00 0.00 - 0.01 K/cumm Magnesium Collection Time: 11/18/20 4:09 AM Result Value Ref Range Magnesium 1.6 1.4 - 2.5 mg/dL Phosphorus Collection Time: 11/18/20 4:09 AM Result Value Ref Range Phosphorus, pl 2.2 (L) 2.3 - 4.5 mg/dL CRP (acute phase) Collection Time: 11/18/20 4:09 AM Result Value Ref Range CRP 5.7 <=10.0 mg/L Differential, auto Collection Time: 11/18/20 4:09 AM Result Value Ref Range Neutrophil abs 5.2 1.7 - 6.5 K/cumm Imm gran abs 0.0 0.0 - 0.1 K/cumm Lymphocyte abs 1.6 0.8 - 3.3 K/cumm Monocyte abs 0.9 (H) 0.2 - 0.8 K/cumm Eosinophil abs 0.0 0.0 - 0.5 K/cumm Basophil abs 0.0 0.0 - 0.1 K/cumm Neutrophil pct 67.4 % Imm gran pct 0.4 % Lymphocyte pct 20.6 % Monocyte pct 11.3 % Eosinophil pct 0.0 % Basophil pct 0.3 % eGFR Collection Time: 11/18/20 4:09 AM Result Value Ref Range GFR 162 mL/min/1.73 m2 POCT glucose Collection Time: 11/18/20 8:27 AM Result Value Ref Range Glucose, POC 186 (H) 71 - 98 mg/dL Current Facility-Administered Medications Medication Dose Route Frequency Provider Last Rate Last Admin ??? dextrose gel in packet 15 g 15 g oral Q15 Min PRN Jhonatan Rey MD Or ??? dextrose (D10W) 10% bolus 250 mL 250 mL intravenous Q15 Min PRN Jhonatan Rey MD ??? dextrose 5% and Lactated Ringer's infusion 75 mL/hr intravenous Continuous Jhonatan Rey MD 75 mL/hr at 11/17/202032 75 mL/hr at 11/17/202032 ??? enoxaparin (LOVENOX) syringe 40 mg 40 mg subcutaneous Daily-2100 Jhonatan Rey MD ??? famotidine (PEPCID) injection 20 mg 20 mg intravenous BID Ayana Prado MD ??? glucagon injection 1 mg 1 mg intramuscular Q30 Min PRN Jhonatan Rey MD ??? insulin glargine (LANTUS, BASAGLAR, SEMGLEE) 100 unit/mL (3 mL) pen injection 40 Units 40 Unitssubcutaneous QAM Jhonatan Rey MD ??? insulin lispro (HumaLOG, ADMELOG) 100 unit/mL pen injection 1-7 Units 1-7 Units subcutaneous Q4H Jhonatan Rey MD 5 Units at 11/18/20 0406 ??? potassium phosphates 30 mmol in sodium chloride 0.9% 500 mL IVPB 30 mmol intravenous Once Jhonatan Rey MD ??? scopolamine patch 72 hour 1 patch 1 patch transdermal Once Jhonatan Rey MD 1 patch at 11/16/20 1338 A/P: 1. DM I with mild DKA: on higher dose lantus with D5LR, no evidence of infections. ?? 2. Hx of MArijuana abuse: counseled. ?? 3. Nausea and vomiting: nop apparent cause, sounds like cyclical/psychogenic. once stable will go for gastric empying study, no vomitus, seen yet, chemistry is ok, albumin is good, now eight loss. Tried haloperidol but she declined ?? Summary and daily updates: 11/17: Still nauseous, no improvement, refusing meds. Continue D5, increase lantus to 40. For Ct abd/pelvis and MRI satish MAYI EEG 7/19: Replace KPHOs Declined CT abd and MRI brain EEG is pending For anemia workup She refused, MRI brain, CT abd, gastric emptying study, pepcid, refused to open her eyes, I am not sure about the etiology, but definitely some psychiatric component. obtain Gastric emptying study and discharge summary from [facility] in [place] Principal Problem: DKA (diabetic ketoacidoses) (CMS/HCC) Active Problems: Cannabinoid hyperemesis syndrome Depression Diabetic gastroparesis (CMS/HCC) Diabetic ketoacidosis without coma associated with type 1 diabetes mellitus (CMS/HCC) Noncompliance with medication regimen Intractable vomiting Marijuana abuse Jhonatan Rey MD 11/18/2020 8:46 AM MDM complexity level: Moderate * Jhonatan Rey MD - 11/17/2020 11:05 AM CDT General Medicine Daily Progress SUBJECTIVE Chief complaint of Nausea and vomiting. Interval History: Still the same ausea and vomiting OBJECTIVE Vitals: 24hr Min/Max: Temp Min: 36.2 ??C (97.2 ??F) Max: 37.1 ??C (98.8 ??F) Pulse Min: 122 Max: 127 BP Min: 118/75 Max: 150/97 Resp Min: 16 Max: 18 SpO2 Min: 97 % Max: 100 % Most Recent : Vitals: 11/17/20 0733 BP: 150/97 Pulse: (!) 126 Resp: 18 Temp: 37.1 ??C (98.8 ??F) SpO2: 100% I/O last 2 completed shifts: In: 1601 [I.V.:1601] Out: 400 [Urine:400] I/O this shift: In: 359.6 [I.V.:359.6] Out: 700 [Urine:500; Emesis/NG output:200] Physical Exam: Eyes: EOMI, ZORAIDA, sclare non icteric Neck: supple, no nuchal ridigity, no gross carotid bruits appreciated Pharynx: No gross oral lesion, tongue midline, mucosa moist Lungs CTA Heart: [id number] Abd: +BS, Non Tender, Non distended, No gross hepatomegaly Lower Ext: No gross edema Neuro: No new gross deficits appreciated Musculoskeletal: no gross joint erythema, edema, tenderness Skin: No lesions Lab/Current Medication Review: Recent Results (from the past 24 hour(s)) POCT glucose Collection Time: 11/16/20 11:48 AM Result Value Ref Range Glucose, POC 286 (H) 71 - 98 mg/dL Erythrocyte sedimentation rate Collection Time: 11/16/20 1:50 PM Result Value Ref Range Erythrocyte sedimentation rate 10 1 - 20 mm/hr POCT glucose Collection Time: 11/16/20 4:22 PM Result Value Ref Range Glucose, POC 311 (H) 71 - 98 mg/dL POCT glucose Collection Time: 11/16/20 8:26 PM Result Value Ref Range Glucose, POC 183 (H) 71 - 98 mg/dL POCT glucose Collection Time: 11/16/20 11:49 PM Result Value Ref Range Glucose, POC 146 (H) 71 - 98 mg/dL POCT glucose Collection Time: 11/17/20 3:58 AM Result Value Ref Range Glucose, POC 193 (H) 71 - 98 mg/dL Comprehensive metabolic panel Collection Time: 11/17/20 6:31 AM Result Value Ref Range Sodium 134 (L) 135 - 145 mmol/L Potassium, pl 3.7 3.3 - 4.9 mmol/L Chloride 99 97 - 110 mmol/L CO2 22 22 - 32 mmol/L Anion gap 12 2 - 15 mmol/L BUN 11 8 - 25 mg/dL Creatinine 0.37 (L) 0.60 - 1.10 mg/dL Glucose 197 70 - 199 mg/dL Calcium 9.1 8.5 - 10.3 mg/dL Bilirubin, total 0.7 0.1 - 1.2 mg/dL Protein, pl 6.9 6.5 - 8.5 g/dL Albumin 4.3 3.5 - 5.0 g/dL Alk phos 80 40 - 130 Units/L ALT 10 7 - 45 Units/L AST 13 10 - 45 Units/L CBC with auto differential Collection Time: 11/17/20 6:31 AM Result Value Ref Range WBC 13.1 (H) 3.8 - 9.9 K/cumm Hgb 11.3 (L) 11.9 - 15.5 g/dL Hct 35.1 (L) 35.6 - 45.5 % Plt 375 150 - 400 K/cumm MPV 10.1 9.1 - 12.3 fL RBC 4.37 3.90 - 5.20 M/cumm MCV 80.3 (L) 81.3 - 96.4 fL MCH 25.9 (L) 27.1 - 33.3 pg MCHC 32.2 (L) 32.3 - 35.7 g/dL RDW CV 15.7 (H) 11.1 - 14.9 % RDW SD 45.7 35.7 - 48.1 fL NRBC abs 0.00 0.00 - 0.01 K/cumm Magnesium Collection Time: 11/17/20 6:31 AM Result Value Ref Range Magnesium 1.7 1.4 - 2.5 mg/dL Phosphorus Collection Time: 11/17/20 6:31 AM Result Value Ref Range Phosphorus, pl 1.5 (L) 2.3 - 4.5 mg/dL CRP (acute phase) Collection Time: 11/17/20 6:31 AM Result Value Ref Range CRP 9.5 <=10.0 mg/L Differential, auto Collection Time: 11/17/20 6:31 AM Result Value Ref Range Neutrophil abs 10.2 (H) 1.7 - 6.5 K/cumm Imm gran abs 0.1 0.0 - 0.1 K/cumm Lymphocyte abs 1.9 0.8 - 3.3 K/cumm Monocyte abs 0.8 0.2 - 0.8 K/cumm Eosinophil abs 0.0 0.0 - 0.5 K/cumm Basophil abs 0.0 0.0 - 0.1 K/cumm Neutrophil pct 78.3 % Imm gran pct 0.4 % Lymphocyte pct 14.7 % Monocyte pct 6.4 % Eosinophil pct 0.0 % Basophil pct 0.2 % eGFR Collection Time: 11/17/20 6:31 AM Result Value Ref Range GFR 150 mL/min/1.73 m2 POCT glucose Collection Time: 11/17/20 8:44 AM Result Value Ref Range Glucose, POC 204 (H) 71 - 98 mg/dL Current Facility-Administered Medications Medication Dose Route Frequency Provider Last Rate Last Admin ??? dextrose gel in packet 15 g 15 g oral Q15 Min PRN Jhonatan Rey MD Or ??? dextrose (D10W) 10% bolus 250 mL 250 mL intravenous Q15 Min PRN Jhonatan Rey MD ??? dextrose 5% and Lactated Ringer's infusion 75 mL/hr intravenous Continuous Jhonatan Rey MD 75 mL/hr at 11/17/20 0852 75 mL/hr at 11/17/20 0852 ??? enoxaparin (LOVENOX) syringe 40 mg 40 mg subcutaneous Daily-2100 Jhonatan Rey MD ??? famotidine (PEPCID) injection 20 mg 20 mg intravenous BID Ayana Prado MD ??? glucagon injection 1 mg 1 mg intramuscular Q30 Min PRN Jhonatan Rey MD ??? insulin glargine (LANTUS, BASAGLAR, SEMGLEE) 100 unit/mL (3 mL) pen injection 25 Units 25 Unitssubcutaneous QAM Jhonatan Rey MD 25 Units at 11/17/20 0848 ??? insulin lispro (HumaLOG, ADMELOG) 100 unit/mL pen injection 1-7 Units 1-7 Units subcutaneous Q4H Jhonatan Rey MD 5 Units at 11/17/20 0848 ??? scopolamine patch 72 hour 1 patch 1 patch transdermal Once Jhonatan Rey MD 1 patch at 11/16/20 1338 A/P: 1. DM I with mild DKA: on higher dose lantus with D5LR, no evidence of infections. ?? 2. Hx of MArijuana abuse: counseled. ?? 3. Nausea and vomiting: nop apparent cause, sounds like cyclical/psychogenic. once stable will go for gastric empying study, no vomitus, seen yet, chemistry is ok, albumin is good, now eight loss. Tried haloperidol but she declined ?? Summary and daily updates: 11/17: Still nauseous, no improvement, refusing meds. Continue D5, increase lantus to 40. For Ct abd/pelvis and MRI satish SEE EEG Principal Problem: DKA (diabetic ketoacidoses) (CMS/HCC) Active Problems: Cannabinoid hyperemesis syndrome Depression Diabetic gastroparesis (CMS/HCC) Diabetic ketoacidosis without coma associated with type 1 diabetes mellitus (CMS/HCC) Noncompliance with medication regimen Intractable vomiting Marijuana abuse Jhonatan Rey MD 11/17/2020 11:05 AM MDM complexity level: Moderate documented in this encounter H&P Notes * Jhonatan Rey MD - 11/16/2020 9:18 AM CDT History and Physical SUBJECTIVE Nausea and vomiting HPI: A 25 year-old female patient with a previous medical history of DM I, Depression, marijuana abuse, presented with intractable nausea and vomiting for a couple of days with SOB that started yesterday. The patient has a history of marijuana abuse. lans showed with very mild DKA. She has been having theses cycle of nausea and vomiting that last for about 5 days each month for the last 5 years!, no previous gastric emptying study or specific diagnosis, triggers, headache, diarrhea,, weight loss, heart burn. The patient explained that reglan, zofran, erythromycin do not work with her, only scopolamine patch!. She talked to me while closing her eyes all the time with an ice pack on her head though she denied any chills, fever, headache, respiratory or urinary symptoms or abdominal pain. Past Medical History: Diagnosis Date ??? Depression ??? Diabetes mellitus (CMS/HCC) T1DM ??? HX OTHER MEDICAL 2011 Diabetes [...] No Known Problems Mother ??? Autism Brother Review of Systems: [...] pain, palpitations, syncope, edema, dyspnea 6. GI Denies: abdominal pain, decreased appetite, nausea, vomiting, change in bowel habitus, diarrhea, vomiting, constipation, melena, BRBPR 7. Denies: dysuria, frequency, hematuria, nocturia, urgency 8. Metabolic Denies: cold intolerance, heat intolerance, polyphagia, polydipsia 9. Neurologic Denies: headache, dizziness, seizure, change in mental status, focal weakness, focal numbness 10. Musculoskeletal Denies: myalgia, joint pain, joint redness, joint swelling, extremity pain 11. Hematologic Denies: bleeding, bruising, hematoma, lymphadenopathy, icterus OBJECTIVE Vitals: Arrival Vitals Temp 11/15/20 1834 (!) 35.8 ??C (96.5 ??F) Pulse 11/15/20 1832 104 Resp 11/15/20 1834 20 BP 11/15/20 1833 (!) 141/101 SpO2 11/15/20 1832 98 % Temp src 11/16/20 0002 Temporal Heart Rate Source 11/16/20 0700 Pulse Oximetry Patient Position 11/16/20 0700 Lying BP Location 11/16/20 0700 Left arm FiO2 (%) -- 24hr Min/Max: Temp Min: 35.8 ??C (96.5 ??F) Max: 37.1 ??C (98.7 ??F) Pulse Min: 99 Max: 146 BP Min: 122/66 Max: 141/101 Resp Min: 15 Max: 20 SpO2 Min: 98 % Max: 100 % Most Recent : Vitals: 11/16/20 0700 BP: 134/85 Pulse: 116 Resp: 18 Temp: 37.1 ??C (98.7 ??F) SpO2: 100% Intake/Output Summary (Last 24 hours) at 11/16/2020 0918 Last data filed at 11/16/2020 0633 Gross per 24 hour Intake 3544.83 ml Output -- Net 3544.83 ml Physical exam: Eyes: EOMI, ZORAIDA, sclare non icteric Neck: supple, no nuchal ridigity, no gross carotid bruits appreciated Pharynx: No gross oral lesion, tongue midline, mucosa moist Lungs CTA Heart: [id number] Abd: +BS, Non Tender, Non distended, No gross hepatomegaly Lower Ext: No gross edema Neuro: No new gross deficits appreciated Musculoskeletal: no gross joint erythema, edema, tenderness Genitourinary: No CVA tenderness Skin: NO lesions Lab/Radiology/Diagnostic Review: Recent Results (from the past 24 hour(s)) CBC with auto differential Collection Time: 11/15/20 7:04 PM Result Value Ref Range WBC 11.2 (H) 3.8 - 9.9 K/cumm Hgb 12.2 11.9 - 15.5 g/dL Hct 37.6 35.6 - 45.5 % Plt 471 (H) 150 - 400 K/cumm MPV 9.1 9.1 - 12.3 fL RBC 4.81 3.90 - 5.20 M/cumm MCV 78.2 (L) 81.3 - 96.4 fL MCH 25.4 (L) 27.1 - 33.3 pg MCHC 32.4 32.3 - 35.7 g/dL RDW CV 15.7 (H) 11.1 - 14.9 % RDW SD 44.6 35.7 - 48.1 fL NRBC abs 0.00 0.00 - 0.01 K/cumm Comprehensive metabolic panel Collection Time: 11/15/20 7:04 PM Result Value Ref Range Sodium 136 135 - 145 mmol/L Potassium, pl 3.8 3.3 - 4.9 mmol/L Chloride 98 97 - 110 mmol/L CO2 21 (L) 22 - 32 mmol/L Anion gap 17 (H) 2 - 15 mmol/L BUN 13 8 - 25 mg/dL Creatinine 0.47 (L) 0.60 - 1.10 mg/dL Glucose 289 (H) 70 - 199 mg/dL Calcium 10.0 8.5 - 10.3 mg/dL Bilirubin, total 0.6 0.1 - 1.2 mg/dL Protein, pl 7.7 6.5 - 8.5 g/dL Albumin 4.9 3.5 - 5.0 g/dL Alk phos 81 40 - 130 Units/L ALT 11 7 - 45 Units/L AST 16 10 - 45 Units/L Differential, auto Collection Time: 11/15/20 7:04 PM Result Value Ref Range Neutrophil abs 10.3 (H) 1.7 - 6.5 K/cumm Imm gran abs 0.0 0.0 - 0.1 K/cumm Lymphocyte abs 0.6 (L) 0.8 - 3.3 K/cumm Monocyte abs 0.2 0.2 - 0.8 K/cumm Eosinophil abs 0.0 0.0 - 0.5 K/cumm Basophil abs 0.0 0.0 - 0.1 K/cumm Neutrophil pct 92.1 % Imm gran pct 0.3 % Lymphocyte pct 5.5 % Monocyte pct 2.0 % Eosinophil pct 0.0 % Basophil pct 0.1 % eGFR Collection Time: 11/15/20 7:04 PM Result Value Ref Range GFR 138 mL/min/1.73 m2 Blood gas, arterial Collection Time: 11/15/20 8:19 PM Result Value Ref Range pH, Art 7.42 7.35 - 7.45 PCO2, Arterial 30 (L) 35 - 45 mmHg PO2, Arterial 105 83 - 108 mmHg HCO3 Art (Calculated) 19 (L) 20 - 30 mmol/L BE, art -4 mmol/L O2 Sat Art (Measured) 99 (H) 90 - 95 % POCT hCG, urine Collection Time: 11/15/20 8:40 PM Result Value Ref Range HCG, ur, POC Negative Lot Number [id number] QC Backgroud Clear Acceptable QC Control Line Acceptable POCT glucose Collection Time: 11/15/20 8:54 PM Result Value Ref Range Glucose, POC 259 (H) 71 - 98 mg/dL Urinalysis reflex to microscopic and culture Urine Collection Time: 11/15/20 9:36 PM Specimen: Urine Result Value Ref Range Color, ur Straw Yellow Clarity, ur Clear Clear Specific gravity, ur 1.023 1.010 - 1.025 pH, urine 6.5 Protein, ur ql Negative Negative Glucose, ur ql 4+ (A) Negative Ketones, ur 3+ (A) Negative Bilirubin, ur Negative Negative Blood, ur Negative Negative Urobilinogen, ur <2.0 <2.0 mg/dL Nitrite, ur Negative Negative Leukocyte esterase, ur Negative Negative UA reflex comment Reflex conditions for microscopic UA and culture not met. POCT glucose Collection Time: 11/15/20 9:58 PM Result Value Ref Range Glucose, POC 199 (H) 71 - 98 mg/dL Basic metabolic panel Collection Time: 11/15/20 10:51 PM Result Value Ref Range Sodium 136 135 - 145 mmol/L Potassium, pl 4.0 3.3 - 4.9 mmol/L Chloride 101 97 - 110 mmol/L CO2 22 22 - 32 mmol/L Anion gap 13 2 - 15 mmol/L BUN 12 8 - 25 mg/dL Creatinine 0.42 (L) 0.60 - 1.10 mg/dL Glucose 206 (H) 70 - 199 mg/dL Calcium 9.1 8.5 - 10.3 mg/dL eGFR Collection Time: 11/15/20 10:51 PM Result Value Ref Range GFR 143 mL/min/1.73 m2 POCT glucose Collection Time: 11/15/20 11:48 PM Result Value Ref Range Glucose, POC 185 (H) 71 - 98 mg/dL POCT glucose Collection Time: 11/16/20 1:53 AM Result Value Ref Range Glucose, POC 206 (H) 71 - 98 mg/dL POCT glucose Collection Time: 11/16/20 5:03 AM Result Value Ref Range Glucose, POC 172 (H) 71 - 98 mg/dL Basic metabolic panel Collection Time: 11/16/20 5:11 AM Result Value Ref Range Sodium 133 (L) 135 - 145 mmol/L Potassium, pl 3.9 3.3 - 4.9 mmol/L Chloride 100 97 - 110 mmol/L CO2 18 (L) 22 - 32 mmol/L Anion gap 15 2 - 15 mmol/L BUN 10 8 - 25 mg/dL Creatinine 0.31 (L) 0.60 - 1.10 mg/dL Glucose 188 70 - 199 mg/dL Calcium 8.7 8.5 - 10.3 mg/dL eGFR Collection Time: 11/16/20 5:11 AM Result Value Ref Range GFR 159 mL/min/1.73 m2 POCT glucose Collection Time: 11/16/20 6:41 AM Result Value Ref Range Glucose, POC 110 (H) 71 - 98 mg/dL POCT glucose Collection Time: 11/16/20 8:45 AM Result Value Ref Range Glucose, POC 259 (H) 71 - 98 mg/dL Current Facility-Administered Medications Medication Dose Route Frequency Provider Last Rate Last Admin ??? dextrose gel in packet 15 g 15 g oral Q15 Min PRN Jhonatan Rey MD Or ??? dextrose (D10W) 10% bolus 250 mL 250 mL intravenous Q15 Min PRN Jhonatan Rey MD ??? dextrose 5% and Lactated Ringer's infusion 125 mL/hr intravenous Continuous Jhonatan Rey MD ??? glucagon injection 1 mg 1 mg intramuscular Q30 Min PRN Jhonatan Rey MD ??? haloperidoL (HALDOL) tablet 5 mg 5 mg oral TID Jhonatan Rey MD ??? insulin glargine (LANTUS, BASAGLAR, SEMGLEE) 100 unit/mL (3 mL) pen injection 25 Units 25 Unitssubcutaneous QAM Jhonatan Rey MD ??? insulin lispro (HumaLOG, ADMELOG) 100 unit/mL pen injection 1-4 Units 1-4 Units subcutaneous Nightly Jhonatan eRy MD ??? insulin lispro (HumaLOG, ADMELOG) 100 unit/mL pen injection 1-7 Units 1-7 Units subcutaneous TID with meals Jhonatan Rey MD ??? metoclopramide (REGLAN) injection 10 mg 10 mg intravenous Once Magdalena Deleon, MEDICAL TRANSPORT SPECIALIST A/P 1. DM I with mild DKA: on higher dose lantus with D5LR, no evidence of infections. 2. Hx of MArijuana abuse: counseled. 3. Nausea and vomiting: nop apparent cause, sounds like cyclical/psychogenic. once stable will go for gastric empying study, no vomitus, seen yet, chemistry is ok, albumin is good, now eight loss. Tried haloperidol but she declined Principal Problem: DKA (diabetic ketoacidoses) (CMS/HCC) Active Problems: Cannabinoid hyperemesis syndrome Depression Diabetic gastroparesis (CMS/HCC) Diabetic ketoacidosis without coma associated with type 1 diabetes mellitus (CMS/HCC) Noncompliance with medication regimen Intractable vomiting Marijuana abuse Resolved Problems: No resolved hospital problems. Jhonatan Rey MD Date of Service: 11/16/2020 DMD complexity level: Moderate documented in this encounter Nursing Notes * Soniya Clifford RN - 11/18/2020 3:34 PM CDT Pt refusing to have MRI of head, CT of abdomen, and gastric emptying study and refusing meds other than insulin and fluids. Pt then decided to sign out AMA this afternoon. Explained risks of leaving against doctor's orders. Pt signed out AMA. * Hanh Miner RN - 11/17/2020 11:04 AM CDT Trio rounds done with Dr. Rey * Hanh Miner RN - 11/16/2020 11:58 AM CDT Trio rounds done with Dr. Arroyo documented in this encounter ED Notes * Seamus Bateman MD - 11/15/2020 6:58 PM CDT Chief Complaint Patient presents with ??? Vomiting ??? Hyperglycemia HPI 11/15/2020 6:58 PM Karina Fuchs is a 25 y.o. female nonsmoker with a h/o T1 DM, DKA, and gastroparesis who presents to the ED with nausea and vomiting for several hours VAPOR COATER. No exacerbating or alleviating factors. Patient reports taking Zofran VAPOR COATER without relief. She denies chest pain, cough, SOB, abdominal pain, diarrhea, fevers, and chills. She states that her most recent episode of DKA was in 10/2020. No other complaints at this time. Per chart review: Patient has multiple prior admissions for DKA. Most recent admission on record was 03/20/20-03/23/20 at [facility]. Past Medical History: Diagnosis Date ??? Depression ??? Diabetes mellitus (CMS/HCC) T1DM ??? HX OTHER MEDICAL 2011 Diabetes [...] abdominal pain and diarrhea. Genitourinary: Negative for dysuria and hematuria. Musculoskeletal: Negative for arthralgias and back pain. Skin: Negative for color change and rash. Neurological: Negative for seizures and syncope. All other systems reviewed and are negative. Physical Exam ED Triage Vitals Temp Pulse Resp BP SpO2 11/15/20 1834 11/15/20 1832 11/15/20 1834 11/15/20 1833 11/15/20 1832 (!) 35.8 ??C (96.5 ??F) 104 20 (!) 141/101 98 % Temp src Heart Rate Source Patient Position BP Location FiO2 (%) -- -- -- -- -- Physical Exam Vitals and nursing note reviewed. HENT: Head: Normocephalic and atraumatic. Eyes: Extraocular Movements: Extraocular movements intact. Conjunctiva/sclera: Conjunctivae normal. Cardiovascular: Rate and Rhythm: Regular rhythm. Tachycardia present. Pulmonary: Effort: Pulmonary effort is normal. No respiratory distress. Breath sounds: Normal breath sounds. Abdominal: Palpations: Abdomen is soft. Tenderness: There is no abdominal tenderness. Musculoskeletal: General: No deformity. Normal range of motion. Cervical back: Normal range of motion and neck supple. Skin: General: Skin is warm and dry. Neurological: General: No focal deficit present. Mental Status: She is oriented to person, place, and time. She is lethargic. Procedures Labs Reviewed CBC WITH AUTO DIFFERENTIAL - Abnormal Result Value WBC 11.2 (*) Hgb 12.2 Hct 37.6 Plt 471 (*) MPV 9.1 RBC 4.81 MCV 78.2 (*) MCH 25.4 (*) MCHC 32.4 RDW CV 15.7 (*) RDW SD 44.6 NRBC abs 0.00 COMPREHENSIVE METABOLIC PANEL - Abnormal Sodium 136 Potassium, pl 3.8 Chloride 98 CO2 21 (*) Anion gap 17 (*) BUN 13 Creatinine 0.47 (*) Glucose 289 (*) Calcium 10.0 Bilirubin, total 0.6 Protein, pl 7.7 Albumin 4.9 Alk phos 81 ALT 11 AST 16 DIFFERENTIAL AUTO - Abnormal Neutrophil abs 10.3 (*) Imm gran abs 0.0 Lymphocyte abs 0.6 (*) Monocyte abs 0.2 Eosinophil abs 0.0 Basophil abs 0.0 Neutrophil pct 92.1 Imm gran pct 0.3 Lymphocyte pct 5.5 Monocyte pct 2.0 Eosinophil pct 0.0 Basophil pct 0.1 URINALYSIS AND REFLEX TO MICROSCOPIC AND CULTURE EGFR GFR 138 POCT HCG, URINE XR Chest 1 Vw Portable Final Result No acute cardiopulmonary disease. BP (!) 141/101 Pulse (!) 146 Temp (!) 35.8 ??C (96.5 ??F) Resp 20 Ht 154.9 cm (5' 1 ) Wt 72.6 kg (160 lb) LMP 01/03/2020 SpO2 100% BMI 30.23 kg/m?? [facility] ED Course as of Nov 17 1158 Time: 11/15 2020 Comment: Discussed case with Dr. Hendricks, Tele-ICU. She is willing to accept the patient, but thereare currently no beds available. Will attempt to close anion gap in ED, and if possible, admit to hospitalist. By: Anitha Christensen Time: 11/15 2125 Comment: Case transferred to Dr. Delgado. By: Seamus Bateman MD Final diagnoses: None This note is prepared by Anitha Christensen, acting as a scribe for Seamus Bateman MD. I electronically signed this note at 7:51 PM on 11/15/2020. I, Seamus Bateman MD, have personally performed the services described in the documentation, reviewed the documentation, as recorded by the scribe in my presence, and it accurately and completelyrecords my words and actions. Anitha Christensen 11/15/201950 Seamus Bateman MD 11/17/20 1159 * Key Siegel RN - 11/15/2020 6:32 PM CDT Patient arrives to the ED with complaints of vomiting since this morning. Patient is a type 1 diabetic. Patient states she has zofran at home but it doesn't help. Patient states her Bg was 274 VAPOR COATER documented in this encounter Miscellaneous Notes * Plan of Care - Hilaria Fuchs RN - 11/18/2020 3:20 AM CDT Goals: Clinical Goals for the Shift: will remain fall free Summary: Resting quietly no falls and no acute resp distress. No new complaints. Problem: Safety: Goal: Will remain free from falls Outcome: Progressing Problem: Safety: Goal: Will remain free from injury from falls Outcome: Progressing * Plan of Care - Hanh Miner RN - 11/17/2020 3:49 PM CDT Goals: Clinical Goals for the Shift: pt. to have relief of nause, have no vomiting, be compliant with medication, and remain free of injury. Summary: pt. Has remained nauseated and continues to refuse anything other than the scopolamine patch that is already placed, continues to refuse pepcid, has refused all meals so far today. Pt. wantsto wait until tomorrow to have CT and MRI. MD notified. Pt. Has remained free of injury so far thisshift. Pt. Is currently resting in bed with an ice pack on her head and eyes closed. Will continue to monitor. Problem: Health Behavior: Goal: Understanding of discharge needs will improve Outcome: Not Progressing Problem: Lack of Knowledge: Goal: Knowledge of the prescribed dietary regimen will improve Outcome: Not Progressing Goal: Ability to plan menus appropriate to prescribed diet will improve Outcome: Not Progressing Problem: Health Behavior: Goal: Identification of resources available to assist in meeting health care needs will improve Outcome: Not Progressing Problem: Nutritional: Goal: Compliance with prescribed food intake will improve Outcome: Not Progressing * Plan of Care - Cammie Tavares RN - 11/17/2020 6:41 AM CDT Goals: Clinical Goals for the Shift: vss. no nausea or vomiting. free from injury. Summary: vss. Denied any pain. No vomiting reported or noted. Ivf's infused without difficulty. Bs checked and covered every 4 hours. Problem: Health Behavior: Goal: Understanding of discharge needs will improve Outcome: Progressing Problem: Lack of Knowledge: Goal: Knowledge of the prescribed dietary regimen will improve Outcome: Progressing Goal: Ability to plan menus appropriate to prescribed diet will improve Outcome: Progressing Problem: Health Behavior: Goal: Identification of resources available to assist in meeting health care needs will improve Outcome: Progressing Problem: Nutritional: Goal: Compliance with prescribed food intake will improve Outcome: Progressing * Plan of Care - Hanh Miner RN - 11/16/2020 6:23 PM CDT Goals: Clinical Goals for the Shift: pt. POC glucose to be WNL, VSS, have relief of nausea, and remain free of injury. Summary: POC glucose has been elevated all shift, VSS, has not had any relief of nausea though the only medication the pt. Will accept for nausea is the scopolamine patch that was placed today after lunch. Pt. Has refused all meals today and any drink that has been offered. Pt. Also has refused anyother medication accept insulin and fluids this shift. Pt. Currently resting in bed with her eyes closed, and an ICE pack on her head. Will continue to monitor. Problem: Health Behavior: Goal: Understanding of discharge needs will improve 11/16/20201822 by Hanh Miner RN Outcome: Progressing 11/16/2020721 by Hanh Miner RN Outcome: Progressing 11/16/2020721 by Hanh Miner RN Outcome: Progressing Problem: Lack of Knowledge: Goal: Knowledge of the prescribed dietary regimen will improve 11/16/20201822 by Hanh Miner RN Outcome: Progressing 11/16/2020721 by Hanh Miner RN Outcome: Progressing 11/16/2020721 by Hanh Miner RN Outcome: Progressing Goal: Ability to plan menus appropriate to prescribed diet will improve 11/16/20201822 by Hanh Miner, MARY Outcome: Progressing 11/16/2020721 by Hanh Miner RN Outcome: Progressing 11/16/2020721 by Hanh Miner RN Outcome: Progressing Problem: Health Behavior: Goal: Identification of resources available to assist in meeting health care needs will improve 11/16/2020 1823 by Hanh Miner RN Outcome: Progressing 11/16/2020 0722 by Hanh Miner RN Outcome: Progressing 11/16/2020 0722 by Hanh Mienr RN Outcome: Progressing * ED Re-evaluation Note - Brigida Delgado MD - 11/15/2020 9:47 PM CDT ED Re-evaluation 21:00 assumed care at shift change from . Patient was initially admitted to the ICU sincethere is no ICU beds available the ICU doctor requested for the patient to be re-evaluated with a repeat BMP after insulin and fluids to see whether the patient can be admitted to the floor after treatment. Repeat BMP pending at 10:30 p.m. will re-evaluate at that time. 23:55 discussed patient with hospitalist , she is familiar with the patient and notes she praneeth brittle diabetic, she would like to continue current insulin drip and glucose stabilizer protocolrepeat BMP in 4 hours at 3:00 a.m. and ensure anion gap does not increase again prior to admitting her on subcu insulin to the floor. 15:00 Labs Reviewed URINALYSIS AND REFLEX TO MICROSCOPIC AND CULTURE - Abnormal Result Value Color, ur Straw Clarity, ur Clear Specific gravity, ur 1.023 pH, urine 6.5 Protein, ur ql Negative Glucose, ur ql [...] for uric acid stone formation. Source: Abdalla [employer].Last revised 05-13-2017 CBC WITH AUTO DIFFERENTIAL - Abnormal WBC 11.2 (*) Hgb 12.2 Hct 37.6 Plt 471 (*) MPV 9.1 RBC 4.81 MCV 78.2 (*) MCH 25.4 (*) MCHC 32.4 RDW CV 15.7 (*) RDW SD 44.6 NRBC abs 0.00 COMPREHENSIVE METABOLIC PANEL - Abnormal Sodium 136 Potassium, pl 3.8 Chloride 98 CO2 21 (*) Anion gap 17 (*) BUN 13 Creatinine 0.47 (*) Glucose 289 (*) Calcium 10.0 Bilirubin, total 0.6 Protein, pl 7.7 Albumin 4.9 Alk phos 81 ALT 11 AST 16 DIFFERENTIAL AUTO - Abnormal Neutrophil abs 10.3 (*) Imm gran abs 0.0 Lymphocyte abs 0.6 (*) Monocyte abs 0.2 Eosinophil abs 0.0 Basophil abs 0.0 Neutrophil pct 92.1 Imm gran pct 0.3 Lymphocyte pct 5.5 Monocyte pct 2.0 Eosinophil pct 0.0 Basophil pct 0.1 BLOOD GAS, ARTERIAL - Abnormal pH, Art 7.42 PCO2, Arterial 30 (*) PO2, Arterial 105 HCO3 Art (Calculated) 19 (*) BE, art -4 O2 Sat Art (Measured) 99 (*) BASIC METABOLIC PANEL - Abnormal Sodium 136 Potassium, pl 4.0 Chloride 101 CO2 22 Anion gap 13 BUN 12 Creatinine 0.42 (*) Glucose 206 (*) Calcium 9.1 POCT GLUCOSE DEVICE - Abnormal Glucose, POC 259 (*) POCT GLUCOSE DEVICE - Abnormal Glucose, POC 199 (*) POCT GLUCOSE DEVICE - Abnormal Glucose, POC 185 (*) POCT HCG, URINE - Normal HCG, ur, POC Negative Lot Number [id number] QC Backgroud Clear Acceptable QC Control Line Acceptable EGFR GFR 138 EGFR GFR 143 BASIC METABOLIC PANEL XR Chest 1 Vw Portable Final Result BP 134/79 Pulse 112 Temp (!) 35.8 ??C (96.5 ??F) Resp 18 Ht 154.9 cm (5' 1 ) Wt 72.6 kg (160 lb) LMP 01/03/2020 SpO2 99% BMI 30.23 kg/m?? 1. DKA (diabetic ketoacidoses) (CMS/[facility]) There may be grammatical errors in this note due to use of voice recognition software. DISPOSITION :ADMIT Brigida Delgado MD 11/16/20 0606 * ED Triage Provider Note - Magdalena Deleon NP - 11/15/2020 6:35 PM CDT 25-year-old female presents to ED with complaints of vomiting since this afternoon. Patient is type1 diabetic. Patient does report shortness of breath. Denies any chest pain or diarrhea. Denies any fevers or chills. documented in this encounter Plan of Treatment Not on file documented as of this encounter Procedures Procedure Name Priority Date/Time Associated Diagnosis Comments POCT GLUCOSE DEVICE Routine 11/18/2020 2 :26 PM CDT POCT GLUCOSE DEVICE Routine 11/18/2020 1 1:16 AM CDT POCT GLUCOSE DEVICE Routine 11/18/2020 8 :27 AM CDT EGFR Routine 11/18/2020 4:09 AM CDT DIFFERENTIAL AUTO Routine 11/18/2020 4:0 9 AM CDT CBC WITH AUTO DIFFERENTIAL Routine 11/18/2020 4:09 AM CDT CRP (ACUTE PHASE) Routine 11/18/2020 4:0 9 AM CDT PHOSPHORUS Routine 11/18/2020 4:09 AM CDT MAGNESIUM Routine 11/18/2020 4:09 AM CDT COMPREHENSIVE METABOLIC PANEL Routine 11/18/2020 4:09 AM CDT IRON PROFILE W/ IBC Routine 11/18/2020 4 :06 AM CDT FERRITIN Routine 11/18/2020 4:06 AM CDT POCT GLUCOSE DEVICE Routine 11/18/2020 4 :04 AM CDT POCT GLUCOSE DEVICE Routine 11/18/2020 1 2:03 AM CDT POCT GLUCOSE DEVICE Routine 11/17/2020 8 :12 PM CDT POCT GLUCOSE DEVICE Routine 11/17/2020 5 :02 PM CDT POCT GLUCOSE DEVICE Routine 11/17/2020 1 1:41 AM CDT POCT GLUCOSE DEVICE Routine 11/17/2020 8 :44 AM CDT EGFR Routine 11/17/2020 6:31 AM CDT DIFFERENTIAL AUTO Routine 11/17/2020 6:3 1 AM CDT CBC WITH AUTO DIFFERENTIAL Routine 11/17/2020 6:31 AM CDT CRP (ACUTE PHASE) Routine 11/17/2020 6:3 1 AM CDT PHOSPHORUS Routine 11/17/2020 6:31 AM CDT MAGNESIUM Routine 11/17/2020 6:31 AM CDT FOLATE Routine 11/17/2020 6:31 AM CDT VITAMIN B12 Routine 11/17/2020 6:31 AM CDT COMPREHENSIVE METABOLIC PANEL Routine 11/17/2020 6:31 AM CDT POCT GLUCOSE DEVICE Routine 11/17/2020 3 :58 AM CDT POCT GLUCOSE DEVICE Routine 11/16/2020 1 1:49 PM CDT POCT GLUCOSE DEVICE Routine 11/16/2020 8 :26 PM CDT POCT GLUCOSE DEVICE Routine 11/16/2020 4 :22 PM CDT ERYTHROCYTE SEDIMENTATION RATE Add-On 11/16/2020 1:50 PM CDT POCT GLUCOSE DEVICE Routine 11/16/2020 1 1:48 AM CDT POCT GLUCOSE DEVICE Routine 11/16/2020 8 :45 AM CDT DRUGS OF ABUSE SCREEN, URINE WITH REFLEX CONFIRMATION Routine 11/16/2020 8:42 AM CDT POCT GLUCOSE DEVICE Routine 11/16/2020 6 :41 AM CDT EGFR STAT 11/16/2020 5:11 AM CDT CRP (ACUTE PHASE) Add-On 11/16/2020 5:1 1 AM CDT BASIC METABOLIC PANEL STAT 11/16/2020 5:11 AM CDT POCT GLUCOSE DEVICE Routine 11/16/2020 5 :03 AM CDT POCT GLUCOSE DEVICE Routine 11/16/2020 1 :53 AM CDT POCT GLUCOSE DEVICE Routine 11/15/2020 1 1:48 PM CDT EGFR Timed 11/15/2020 10:51 PM CDT BASIC METABOLIC PANEL Timed 11/15/2020 10:51 PM CDT POCT GLUCOSE DEVICE Routine 11/15/2020 9 :58 PM CDT URINALYSIS AND REFLEX TO MICROSCOPIC AND CULTURE STAT 11/15/2020 9:36 PM CDT POCT GLUCOSE DEVICE Routine 11/15/2020 8 :54 PM CDT POCT HCG, URINE Routine 11/15/2020 8:40 PM CDT BLOOD GAS, ARTERIAL STAT 11/15/2020 8 :19 PM CDT XR CHEST 1 VIEW ED 11/15/2020 7:17 PM CDT EGFR STAT 11/15/2020 7:04 PM CDT DIFFERENTIAL AUTO STAT 11/15/2020 7:0 4 PM CDT CBC WITH AUTO DIFFERENTIAL STAT 11/15/2020 7:04 PM CDT COMPREHENSIVE METABOLIC PANEL STAT 11/15/2020 7:04 PM CDT documented in this encounter Results * (ABNORMAL) POCT glucose (11/18/2020 2:26 PM CDT) Glucose, POC 157(H) 71 - 98 mg/dL [facility] ([place]) Blood specimen (specimen) 11/18/2020 2:26 PM CDT 11/18/2020 2:26 PM CDT us Ayana Prado MD LAB POCT ORDERABLES - DEVICE Fin al Result [facility] ([place]) 1 [facility] Department [place] [address] * (ABNORMAL) POCT glucose (11/18/2020 11:16 AM CDT) Glucose, POC 184(H) 71 - 98 mg/dL [facility] ([place]) Blood specimen (specimen) 11/18/2020 11:16 AM CDT 11/18/2020 11:16 AM CDT us Ayana Prado MD LAB POCT ORDERABLES - DEVICE Fin al Result Performing Organization Address [facility]/ZIP Co de Phone Number [facility]OM[facility] ([place]) 1 [facility] Department [place] [address] * (ABNORMAL) POCT glucose (11/18/2020 8:27 AM CDT) Glucose, POC 186(H) 71 - 98 mg/dL [facility] ([place]) Blood specimen (specimen) 11/18/2020 8:27 AM CDT 11/18/2020 8:27 AM CDT Ayana Prado MD LAB POCT ORDERABLES - DEVICE Fin al Result Performing Organization Address [facility] de Phone Number [facility] ([place]) [address] [facility] [place] [address] * eGFR (11/18/2020 4:09 AM CDT) eGFR 162 mL/min/1.7 3 m2 [facility] ([place]) Comment: Interpretive Data Reference Interval Normal ?>/= [...] interpretive data was last reviewed 2020 Blood specimen (specimen) 11/18/2020 4:09 AM CDT 11/18/2020 5:11 AM CDT Jhonatan Rey MD LAB BLOOD ORDERABL ES Final Result [facility] ([place]) 1 [facility] Department [place] [address] * (ABNORMAL) Differential, auto (11/18/2020 4:09 AM CDT) Neutrophil abs 5.2 1.7 - 6.5 K/cumm [facility] ([place]) Imm gran abs 0.0 0.0 - 0.1 K/cumm [facility] ([place]) Lymphocyte abs 1.6 0.8 - 3.3 K/cumm [facility] ([place]) Monocyte abs 0.9(H) 0.2 - 0.8 K/cumm [facility] ([place]) Eosinophil abs 0.0 0.0 - 0.5 K/cumm [facility] ([place]) Basophil abs 0.0 0.0 - 0.1 K/cumm [facility] ([place]) Neutrophil pct 67.4 % [facility] ([place]) Comment: Interpretive [...] was last revised on 2017. Lymphocyte pct 20.6 % [facility] ([place]) Comment: Interpretive Data Percent cell count reference ranges are not reported, since discordance with absolute values may lead to misinterpretation of CBC data. Current Interpretive Data was last revised on 2017. Monocyte pct 11.3 % [facility] ([place]) Comment: Interpretive Data Percent cell count reference ranges are not reported, since discordance with absolute values may lead to misinterpretation of CBC data. Current Interpretive Data was last revised on 2017. Eosinophil pct 0.0 % [facility] ([place]) Comment: Interpretive Data Percent cell count reference ranges are not reported, since discordance with absolute values may lead to misinterpretation of CBC data. Current Interpretive Data was last revised on 2017. Basophil pct 0.3 % [facility] ([place]) Comment: Interpretive Data Percent cell count reference ranges are not reported, since discordance with absolute values may lead to misinterpretation of CBC data. Current Interpretive Data was last revised on 2017. Blood specimen (specimen) 11/18/2020 4:09 AM CDT 11/18/2020 5:09 AM CDT Jhonatan Rey MD LAB BLOOD ORDERABL ES Final Result [facility] ([place]) [address] [facility] [place] [address] * CRP (acute phase) (11/18/2020 4:09 AM CDT) CRP 5.7 <=10.0 mg/L [facility] ([place]) Blood specimen (specimen) 11/18/2020 4:09 AM CDT 11/18/2020 5:11 AM CDT Jhonatan Rey MD LAB BLOOD ORDERABL ES Final Result [facility] ([place]) [address] [place] [address] * (ABNORMAL) Phosphorus (11/18/2020 4:09 AM CDT) Phosphorus, pl 2.2(L) 2.3 - 4.5 mg/dL [facility] ([place]) Blood specimen (specimen) 11/18/2020 4:09 AM CDT 11/18/2020 5:11 AM CDT Jhonatan Rey MD LAB BLOOD ORDERABL ES Final Result [facility] ([place]) [address] [facility] [place] [address] * Magnesium (11/18/2020 4:09 AM CDT) Pathologist [facility] Magnesium 1.6 1.4 - 2.5 mg/dL [facility] ([place]) Blood specimen (specimen) 11/18/2020 4:09 AM CDT 11/18/2020 5:11 AM CDT Jhonatan Rey MD LAB BLOOD ORDERABL ES Final Result Performing Organization Address City/[facility] Co de Phone Number [facility] ([place]) [address] [facility] [place] [address] * (ABNORMAL) CBC with auto differential (11/18/2020 4:09 AM CDT) Pathologist [facility] WBC 7.7 3.8 - 9.9 K/cumm [facility] ([place]) Hgb 10.9(L) 11.9 - 15.5 g/dL [facility] ([place]) Hct 34.5(L) 35.6 - 45.5 % [facility] ([place]) Plt 347 150 - 400 K/cumm [facility] ([place]) MPV 10.4 9.1 - 12.3 fL [facility] ([place]) RBC 4.29 3.90 - 5.20 M/cumm [facility] ([place]) MCV 80.4(L) 81.3 - 96.4 fL [facility] ([place]) MCH 25.4(L) 27.1 - 33.3 pg [facility] ([place]) MCHC 31.6(L) 32.3 - 35.7 g/dL [facility] ([place]) RDW CV 15.6(H) 11.1 - 14.9 % [facility] ([place]) RDW SD 45.6 35.7 - 48.1 fL [facility] ([place]) NRBC abs 0.00 0.00 - 0.01 K/cumm [facility] ([place]) Blood specimen (specimen) 11/18/2020 4:09 AM CDT 11/18/2020 5:09 AM CDT Jhonatan Rey MD LAB BLOOD ORDERABL ES Final Result [facility] ([place]) 1 [facility] Department [place] [address] * (ABNORMAL) Comprehensive metabolic panel (11/18/2020 4:09 AM CDT) Sodium 132(L) 135 - 145 mmol/L [facility] ([place]) Potassium, pl 3.8 3.3 - 4.9 mmol/L [facility] ([place]) Chloride 97 97 - 110 mmol/L [facility] ([place]) CO2 22 22 - 32 mmol/L [facility] ([place]) Anion gap 13 2 - 15 mmol/L [facility] ([place]) BUN 8 8 - 25 mg/dL [facility] ([place]) Creatinine 0.29(L) 0.60 - 1.10 mg/dL [facility] ([place]) Glucose 212(H) 70 - 199 mg/dL [facility] (VASHTI) [...] 1.2 mg/dL [facility] ([place]I) Protein, pl 6.2(L) 6.5 - 8.5 g/dL [facility] ([place]) Albumin 3.8 3.5 - 5.0 g/dL [facility] ([place]) Alk phos 70 40 - 130 Units/L [facility] ([place]) ALT 9 7 - 45 Units/L [facility] ([place]) AST 16 10 - 45 Units/L [facility] ([place]) Comment: Hemolysis present. ??Results may be affected. Slightly Hemolyzed Specimen Blood specimen (specimen) 11/18/2020 4:09 AM CDT 11/18/2020 5:11 AM CDT Jhonatan Rey MD LAB BLOOD ORDERABL ES Final Result Performing Organization Address City/[facility]/ZIP Co de Phone Number [facility] ([place]) 1 [facility] [place] [address] * Ferritin (11/18/2020 4:06 AM CDT) Ferritin 55 15 - 150 ng/mL [facility] ([place]) Blood specimen (specimen) 11/18/2020 4:06 AM CDT 11/18/2020 10:11 AM CDT Jhonatan Rey MD LAB BLOOD ORDERABL ES Final Result Performing Organization Address City/[facility]/ZIP Co de Phone Number [facility] ([place]) 1 [facility] [place] [address] * (ABNORMAL) Iron profile w/ IBC (11/18/2020 4:06 AM CDT) Iron 40 35 - 145 mcg/dL [facility] ([place]) TIBC 369 250 - 400 mcg/dL [facility] ([place]) Transferrin saturation 11(L) 20 - 50 % [facility] ([place]) Blood specimen (specimen) 11/18/2020 4:06 AM CDT 11/18/2020 10:11 AM CDT us Jhonatan Rey MD LAB BLOOD ORDERABL ES Final Result Performing Organization Address City/[facility]/ZIP Co de Phone Number TOMY SAHU (VASHTI) 1 [facility] [address] * (ABNORMAL) POCT glucose (11/18/2020 4:04 AM CDT) Glucose, POC 228(H) 71 - 98 mg/dL TOMY SAHU (VASHTI) Blood specimen (specimen) 11/18/2020 4:04 AM CDT 11/18/2020 4:04 AM CDT us Ayana Prado MD LAB POCT ORDERABLES - DEVICE Fin al Result Performing Organization Address [facility] Co de Phone Number TOMY SAHU ([place]) 1 [facility] [address] * (ABNORMAL) POCT glucose (11/18/2020 12:03 AM CDT) Glucose, POC 173(H) 71 - 98 mg/dL TOMY SAHU ([place]HTI) Blood specimen (specimen) 11/18/2020 12:03 AM CDT 11/18/2020 12:03 AM CDT us Ayana Prado MD LAB POCT ORDERABLES - DEVICE Fin al Result Performing Organization Address City/[facility]/ZIP Co de Phone Number TOMY SAHU (VASHTI) 1 [facility] [address] * (ABNORMAL) POCT glucose (11/17/2020 8:12 PM CDT) Glucose, POC 147(H) 71 - 98 mg/dL TOMY SAHU ([place]) Blood specimen (specimen) 11/17/2020 8:12 PM CDT 11/17/2020 8:12 PM CDT us Ayana Prado MD LAB POCT ORDERABLES - DEVICE Fin al Result Performing Organization Address City/[facility]/ZIP Co de Phone Number TOMY OwensMAGNOLIA) 1 [facility] [address] * (ABNORMAL) POCT glucose (11/17/2020 5:02 PM CDT) Glucose, POC 173(H) 71 - 98 mg/dL TOMY SAHU ([place]) Blood specimen (specimen) 11/17/2020 5:02 PM CDT 11/17/2020 5:02 PM CDT us Ayana Prado MD LAB POCT ORDERABLES - DEVICE Fin al Result Performing Organization Address [facility] Co de Phone Number TOMY SAHU ([place]) 1 [facility] [address] * (ABNORMAL) POCT glucose (11/17/2020 11:41 AM CDT) Glucose, POC 184(H) 71 - 98 mg/dL TOMY SAHU ([place]) Blood specimen (specimen) 11/17/2020 11:41 AM CDT 11/17/2020 11:41 AM CDT us Ayana Prado MD LAB POCT ORDERABLES - DEVICE Fin al Result Performing Organization Address City/[facility] Co de Phone Number TOMY SAHU ([place]) 1 [facility] [address] * (ABNORMAL) POCT glucose (11/17/2020 8:44 AM CDT) Glucose, POC 204(H) 71 - 98 mg/dL TOMY SAHU ([place]) Blood specimen (specimen) 11/17/2020 8:44 AM CDT 11/17/2020 8:44 AM CDT us Ayana Prado MD LAB POCT ORDERABLES - DEVICE Fin al Result Performing Organization Address [facility] Co de Phone Number TOMY SAHU (VASHTI) 1 [facility] [address] * Vitamin B12 (11/17/2020 6:31 AM CDT) Vitamin B12 389 230 - 1,250 pg/mL [facility] ([place]) Comment:Testing performed by : [facility], [address] [place] [address], [id number] Blood specimen (specimen) 11/17/2020 6:31 AM CDT 11/18/2020 3:07 PM CDT Jhonatan Rey MD LAB BLOOD ORDERABL ES Final Result Performing Organization Address [facility] de Phone Number TOMY SAHU ([place]) 1 [place] [address] * Folate (11/17/2020 6:31 AM CDT) Folic acid 15.9 >=5.0 ng/mL [facility] ([place]) Comment: Hemolysis present. ??Results may be affected. Testing performed by: [facility], [address] [place] [address], [id number] Blood specimen (specimen) 11/17/2020 6:31 AM CDT 11/18/2020 3:07 PM CDT Jhonatan Rey MD LAB BLOOD ORDERABL ES Final Result Performing Organization Address [facility] Co de Phone Number TOMY [facility] ([place]HTI) 1 [facility] [address] * eGFR (11/17/2020 6:31 AM CDT) eGFR 150 mL/min/1.7 3 m2 [facility] ([place]) Comment: Interpretive Data [...] interpretive data was last reviewed 2020 Blood specimen (specimen) 11/17/2020 6:31 AM CDT 11/17/2020 7:18 AM CDT Jhonatan Rey MD LAB BLOOD ORDERABL ES Final Result [facility] ([place]I) 1 [facility] Department [place] [address] * (ABNORMAL) Differential, auto (11/17/2020 6:31 AM CDT) Neutrophil abs 10.2(H) 1.7 - 6.5 K/cumm [facility] ([place]) Imm gran abs 0.1 0.0 - 0.1 K/cumm [facility] ([place]) Lymphocyte abs 1.9 0.8 - 3.3 K/cumm [facility] ([place]) Monocyte abs 0.8 0.2 - 0.8 K/cumm [facility] ([place]) Eosinophil abs 0.0 0.0 - 0.5 K/cumm [facility] ([place]) Basophil abs 0.0 0.0 - 0.1 K/cumm [facility] ([place]) Neutrophil pct 78.3 % [facility] ([place]I) Comment: Interpretive [...] was last revised on 2017. Lymphocyte pct 14.7 % [facility] ([place]) Comment: Interpretive Data Percent cell count reference ranges are not reported, since discordance with absolute values may lead to misinterpretation of CBC data. Current Interpretive Data was last revised on 2017. Monocyte pct 6.4 % [facility] ([place]) Comment: Interpretive Data [...] Data was last revised on 2017. Blood specimen (specimen) 11/17/2020 6:31 AM CDT 11/17/2020 7:19 AM CDT Jhonatan Rey MD LAB BLOOD ORDERABL ES Final Result TOMY LUIS ALBERTO (VASHTI) 1 [facility] Department [place] [address] * CRP (acute phase) (11/17/2020 6:31 AM CDT) Pathologist [facility] CRP 9.5 <=10.0 mg/L TOMY Frost ([place]) Blood specimen (specimen) 11/17/2020 6:31 AM CDT 11/17/2020 7:18 AM CDT Jhonatna Rey MD LAB BLOOD ORDERABL ES Final Result [facility] [place] ([place]) [address] [place] [address] [place] [address] * (ABNORMAL) Phosphorus (11/17/2020 6:31 AM CDT) [facility] Phosphorus, pl 1.5(L) 2.3 - 4.5 mg/dL [facility] ([place]) Blood specimen (specimen) 11/17/2020 6:31 AM CDT 11/17/2020 7:18 AM CDT Jhonatan Rey MD LAB BLOOD ORDERABL ES Final Result Performing Organization Address City/[facility]/ZIP Co de Phone Number [facility] ([place]) [address] [place] [address] [place] [address] * Magnesium (11/17/2020 6:31 AM CDT) [facility] Magnesium 1.7 1.4 - 2.5 mg/dL [facility] [place] Blood specimen (specimen) 11/17/2020 6:31 AM CDT 11/17/2020 7:18 AM CDT Jhonatan Rey MD LAB BLOOD ORDERABL ES Final Result [facility] ([place]) [address] [place] [address] * (ABNORMAL) CBC with auto differential (11/17/2020 6:31 AM CDT) WBC 13.1(H) 3.8 - 9.9 K/cumm [facility] ([place]) Hgb 11.3(L) 11.9 - 15.5 g/dL [facility] ([place]) Hct 35.1(L) 35.6 - 45.5 % [facility] ([place]) Plt 375 150 - 400 K/cumm [facility] ([place]) MPV 10.1 9.1 - 12.3 fL [facility] ([place]) RBC 4.37 3.90 - 5.20 M/cumm [facility] ([place]) MCV 80.3(L) 81.3 - 96.4 fL [facility] ([place]) MCH 25.9(L) 27.1 - 33.3 pg [facility] ([place]) MCHC 32.2(L) 32.3 - 35.7 g/dL [facility] ([place]) RDW CV 15.7(H) 11.1 - 14.9 % [facility] ([place]) RDW SD 45.7 35.7 - 48.1 fL [facility] ([place]) NRBC abs 0.00 0.00 - 0.01 K/cumm [facility] ([place]) Blood specimen (specimen) 11/17/2020 6:31 AM CDT 11/17/2020 7:19 AM CDT Jhonatan Rey MD LAB BLOOD ORDERABL ES Final Result [facility] ([place]) 1 [facility] Department [place] [address] * (ABNORMAL) Comprehensive metabolic panel (11/17/2020 6:31 AM CDT) Pathologist [facility] Sodium 134(L) 135 - 145 mmol/L CERNER [...] - 1.10 mg/dL [facility] ([place]) Glucose 197 70 - 199 mg/dL [facility] ([place]) [...] interpretive data was last revised 2017. Calcium 9.1 8.5 - 10.3 mg/dL [facility] ([place]) Bilirubin, total 0.7 0.1 - 1.2 mg/dL [facility] ([place]) Protein, pl 6.9 6.5 - 8.5 g/dL [facility] ([place]) Albumin 4.3 3.5 - 5.0 g/dL [facility] ([place]) Alk phos 80 40 - 130 Units/L [facility] ([place]) ALT 10 7 - 45 Units/L [facility] ([place]) AST 13 10 - 45 Units/L [facility] ([place]) Blood specimen (specimen) 11/17/2020 6:31 AM CDT 11/17/2020 7:18 AM CDT Jhonatan Rey MD LAB BLOOD ORDERABL ES Final Result [facility] ([place]) 1 [facility] Department of Laboratories [place], [place] [id number] * (ABNORMAL) POCT glucose (11/17/2020 3:58 AM CDT) Glucose, POC 193(H) 71 - 98 mg/dL [facility] ([place]) Blood specimen (specimen) 11/17/2020 3:58 AM CDT 11/17/2020 3:58 AM CDT us Ayana Prado MD LAB POCT ORDERABLES - DEVICE Fin al Result TOMY SAHU ([place]) 1 [facility] [place] [address] * (ABNORMAL) POCT glucose (11/16/2020 11:49 PM CDT) Glucose, POC 146(H) 71 - 98 mg/dL TOMY SAHU ([place]) Blood specimen (specimen) 11/16/2020 11:49 PM CDT 11/16/2020 11:49 PM CDT us Ayana Prado MD LAB POCT ORDERABLES - DEVICE Fin al Result Performing Organization Address [facility] Co de Phone Number TOMY SAHU ([place]) 1 [facility] [address] * (ABNORMAL) POCT glucose (11/16/2020 8:26 PM CDT) Glucose, POC 183(H) 71 - 98 mg/dL [facility]ERT[facility] ([place]) Blood specimen (specimen) 11/16/2020 8:26 PM CDT 11/16/2020 8:26 PM CDT Ayana Prado MD LAB POCT ORDERABLES - DEVICE Fin al Result TOMY SAHU ([place]) 1 [facility] [address] * (ABNORMAL) POCT glucose (11/16/2020 4:22 PM CDT) Glucose, POC 311(H) 71 - 98 mg/dL [facility] LUIS ALBERTO ([place]) Blood specimen (specimen) 11/16/2020 4:22 PM CDT 11/16/2020 4:22 PM CDT us Ayana Prado MD LAB POCT ORDERABLES - DEVICE Fin al Result Performing Organization Address [facility] Co de Phone Number TOMY OwensMAGNOLIA) 1 [facility] [address] * Erythrocyte sedimentation rate (11/16/2020 1:50 PM CDT) Erythrocyte sedimentation rate 10 1 - 20 mm/hr [facility] ([place]) Blood specimen (specimen) 11/16/2020 1:50 PM CDT 11/16/2020 2:01 PM CDT us Jhonatan Rey MD LAB BLOOD ORDERABL ES Final Result Performing Organization Address [facility] de Phone Number [facility] [place] ([place]) [address] [place] [address] [place] [address] * (ABNORMAL) POCT glucose (11/16/2020 11:48 AM CDT) Glucose, POC 286(H) 71 - 98 mg/dL [facility] ([place]) Blood specimen (specimen) 11/16/2020 11:48 AM CDT 11/16/2020 11:48 AM CDT us Ayana Prado MD LAB POCT ORDERABLES - DEVICE Fin al Result Performing Organization Address [facility] Co de Phone Number [facility] [place] ([place]) 1 [facility] [address] * (ABNORMAL) POCT glucose (11/16/2020 8:45 AM CDT) Glucose, POC 259(H) 71 - 98 mg/dL [facility]) Blood specimen (specimen) 11/16/2020 8:45 AM CDT 11/16/2020 8:45 AM CDT Ayana Prado MD LAB POCT ORDERABLES - DEVICE Fin al Result TOMY SAHU ([place]) 1 [facility] Department [place] [address] * Drugs of Abuse Screen, Urine with Reflex Confirmation (11/16/2020 8:42 AM CDT) Amphetamine, ur Not Detected CutOff 500ng/mL [...] Data was last reviewed 2018. Urine Creatinine 40 mg/dL ASHLEY SAHU ([place]) Comment: Interpretive Data Urine Creatinine: < 10 mg/dL is extremely dilute = or > 10 but < 20 mg/dL is dilute = or > 20 mg/dL is normal Current Interpretive Data was last revised on 2017. Urine 11/16/2020 8:42 AM CDT 11/16/2020 8:48 AM CDT Narrative TOMY SAHU ([place]) - 11/16/2020 9:24 AM CDT Drug of Abuse screening is performed by immunoassay for medical purposes only. ??This is not to be used for Pain Management purposes. ??If Detected, confirmation testing will be performed for Amphetamines, Cocaine, Fentanyl, Methadone, Opiates, Oxycodone or Phencyclidine. Jhonatan Rey MD LAB URINE ORDERABL ES Final Result Performing Organization Address [facility]/ZIP Co de Phone Number [facility] ([place]) [address] [facility] [place] [address] * (ABNORMAL) POCT glucose (11/16/2020 6:41 AM CDT) Glucose, POC 110(H) 71 - 98 mg/dL [facility] ([place]) Blood specimen (specimen) 11/16/2020 6:41 AM CDT 11/16/2020 6:41 AM CDT Brigida Delgado MD LAB POCT ORDERABLES - DEVICE Final Result Performing Organization Address [facility] Co de Phone Number [facility] ([place]) [address] [facility] [place] [address] * CRP (acute phase) (11/16/2020 5:11 AM CDT) Pathologist [facility] CRP 5.8 <=10.0 mg/L TOMY Frost ([place]) Blood specimen (specimen) 11/16/2020 5:11 AM CDT 11/16/2020 1:17 PM CDT Jhonatan Rey MD LAB BLOOD ORDERABL ES Final Result Performing Organization Address City/[facility] Co de Phone Number [facility] ([place]) [address] [facility] [place] [address] * eGFR (11/16/2020 5:11 AM CDT) eGFR 159 mL/min/1.7 3 m2 [facility] ([place]) Comment: Interpretive Data Reference Interval Normal ?>/= [...] interpretive data was last reviewed 2020 Blood specimen (specimen) 11/16/2020 5:11 AM CDT 11/16/2020 5:14 AM CDT us Brigida Delgado MD LAB BLOOD ORDERABLE S Final Result [facility] ([place]) 1 [facility] Department [place] [address] * (ABNORMAL) Basic metabolic panel (11/16/2020 5:11 AM CDT) Sodium 133(L) 135 - 145 mmol/L [facility] ([place]) Potassium, pl 3.9 3.3 - 4.9 mmol/L [facility] ([place]) Chloride 100 97 - 110 mmol/L [facility] ([place]) CO2 18(L) 22 - 32 mmol/L [facility] ([place]) Anion gap 15 2 - 15 mmol/L [facility] ([place]) BUN 10 8 - 25 mg/dL [facility] ([place]) Creatinine 0.31(L) 0.60 - 1.10 mg/dL [facility] ([place]) Glucose 188 70 - 199 mg/dL [facility] ([place]) [...] 2017. Calcium 8.7 8.5 - 10.3 mg/dL [facility] ([place]) Blood specimen (specimen) 11/16/2020 5:11 AM CDT 11/16/2020 5:14 AM CDT us Brigida Delgado MD LAB BLOOD ORDERABLE S Final Result TOMY SAHU ([place]) 1 [facility] [employer] [place] [address] * (ABNORMAL) POCT glucose (11/16/2020 5:03 AM CDT) [facility] Signature Glucose, POC 172(H) 71 - 98 mg/dL TOMY SAHU ([place]) Blood specimen (specimen) 11/16/2020 5:03 AM CDT 11/16/2020 5:03 AM CDT Brigida Delgado MD LAB POCT ORDERABLES - DEVICE Final Result TOMY SAHU ([place]) 1 [facility] Department [place] [address] * (ABNORMAL) POCT glucose (11/16/2020 1:53 AM CDT) Pathologist [facility] Glucose, POC 206(H) 71 - 98 mg/dL [facility] ([place]) Blood specimen (specimen) 11/16/2020 1:53 AM CDT 11/16/2020 1:53 AM CDT Seamus Bateman MD LAB POCT ORDERABLES - DEVIC E Final Result Performing Organization Address City/[facility]/ZIP Co de Phone Number [facility] ([place]) [address] [facility] [place] [address] * (ABNORMAL) POCT glucose (11/15/2020 11:48 PM CDT) [facility] Glucose, POC 185(H) 71 - 98 mg/dL [facility] ([place]) Comment:Glu2: RN/MD Notified Blood specimen (specimen) 11/15/2020 11:48 PM CDT 11/15/2020 11:48 PM CDT Seamus Bateman MD LAB POCT ORDERABLES - DEVIC E Final Result Performing Organization Address [facility] Co de Phone Number [facility] ([place]) [address] [place] [address] [place] [address] * eGFR (11/15/2020 10:51 PM CDT) Pathologist [facility] eGFR 143 mL/min/1.7 3 m2 [facility] ([place]) Comment: Interpretive Data Reference Interval Normal ?>/= [...] interpretive data was last reviewed 2020 Blood specimen (specimen) 11/15/2020 10:51 PM CDT 11/15/2020 11:11 PM CDT us Seamus Bateman MD LAB BLOOD ORDERABLES Final Result [facility] ([place]) 1 [facility] Department [place] [address] * (ABNORMAL) Basic metabolic panel (11/15/2020 10:51 PM CDT) Sodium 136 135 - 145 mmol/L [facility] ([place]) Potassium, pl 4.0 3.3 - 4.9 mmol/L [facility] ([place]) Chloride 101 97 - 110 mmol/L [facility] ([place]) CO2 22 22 - 32 mmol/L [facility] ([place]) Anion gap 13 2 - 15 mmol/L [facility] ([place]) BUN 12 8 - 25 mg/dL [facility] ([place]) Creatinine 0.42(L) 0.60 - 1.10 mg/dL [facility] ([place]) Glucose 206(H) 70 - 199 mg/dL [facility] ([place]) Comment: Interpretive Data Fasting [...] interpretive data was last revised 2017. Calcium 9.1 8.5 - 10.3 mg/dL TOMY SAHU ([place]) Blood specimen (specimen) 11/15/2020 10:51 PM CDT 11/15/2020 11:11 PM CDT Seamus Bateman MD LAB BLOOD ORDERABLES Final Result Performing Organization Address City/[facility]/ZIP Co de Phone Number [facility] ([place]) 1 [facility] [address] * (ABNORMAL) POCT glucose (11/15/2020 9:58 PM CDT) Glucose, POC 199(H) 71 - 98 mg/dL [facility] ([place]) Comment:Glu2: RN/ Notified Blood specimen (specimen) 11/15/2020 9:58 PM CDT 11/15/2020 9:58 PM CDT Seamus Bateman MD LAB POCT ORDERABLES - DEVIC E Final Result Performing Organization Address [facility] Co de Phone Number TOMY SAHU ([place]) [address] [facility] [place] [address] * (ABNORMAL) Urinalysis reflex to microscopic and culture Urine (11/15/2020 9:36 PM CDT) Color, ur Straw Yellow [facility] ([place]) Clarity, ur Clear Clear [facility] ([place]) Specific gravity, ur 1.023 1.010 - 1.025 [facility] ([place]) pH, urine 6.5 [facility] ([place]) Protein, ur ql Negative [...] [facility] ([place]) UA reflex comment Reflex conditions for microscopic UA and culture not met. [facility] ([place]) Urine 11/15/2020 9:36 PM CDT 11/15/2020 9:45 PM CDT Narrative [facility] ([place]) - 11/15/2020 10:23 PM CDT ?? Urine pH is affected by diet, medications, systemic acid-base disturbances, and renal tubular function. ??pH may affect urinary stone formation. ??For example, urine pH below 6.0 may help reduce the tendency for calcium phosphate stones and pH greater than 6.0 may reduce the tendency for uric acid stone formation. Source: [facility] [place]. Last revised 05-13-2017 us Magdalena Deleon NP LAB MICROBIOLOGY - GENERAL O RDERABLES Final Result Performing Organization Address City/[facility]/ZIP Co de Phone Number [facility] ([place]) 1 [facility] [employer] [place] [address] * (ABNORMAL) POCT glucose (11/15/2020 8:54 PM CDT) Glucose, POC 259(H) 71 - 98 mg/dL [facility] ([place]) Blood specimen (specimen) 11/15/2020 8:54 PM CDT 11/15/2020 8:54 PM CDT us Seamus Bateman MD LAB POCT ORDERABLES - DEVIC E Final Result TOMY SAHU ([place]) 1 [facility] [employer] [place] [address] * POCT hCG, urine (11/15/2020 8:40 PM CDT) HCG, ur, POC Negative Lot Number [id number] QC Backgroud Clear Acceptable QC Control Line Acceptable Urine 11/15/2020 8:40 PM CDT us Magdalena Deleon MEDICAL TRANSPORT SPECIALIST POINT OF CARE TEST ORDERABLE S Final Result * (ABNORMAL) Blood gas, arterial (11/15/2020 8:19 PM CDT) pH, Art 7.42 7.35 - 7.45 [facility] ([place]) PCO2, Arterial 30(L) 35 - 45 mmHg [facility] ([place]) PO2, Arterial 105 83 - 108 mmHg [facility] ([place]) HCO3 Art (Calculated) 19(L) 20 - 30 mmol/L [facility] ([place]) BE, art -4 mmol/L [facility] ([place]) Comment: Interpretive Data No Reference Range Established Current Interpretive Data was last revised on 2017 O2 Sat Art (Measured) 99(H) 90 - 95 % [facility] ([place]) Blood specimen (specimen) 11/15/2020 8:19 PM CDT 11/15/2020 8:21 PM CDT us Seamus Bateman MD LAB BLOOD ORDERABLES Final Result TOMY SAHU ([place]) 1 [facility] Department [place] [address] * XR Chest 1 Vw Portable (11/15/2020 7:17 PM CDT) Anatomical Region Laterality Modality Body, Chest N/A Computed Radiogr aphy 11/15/2020 7:46 PM CDT Narrative 11/15/2020 7:46 PM CDT EXAM DESCRIPTION: ?? XR CHEST 1 VIEW REASON FOR STUDY: ?? 25-year-old female presents to ED with complaints of vomiting since this afternoon. ??Patient is type 1 diabetic. ??Patient does report shortness of breath. ??Denies any chest pain or diarrhea. ??Denies any fevers or chills.Duration: today TECHNIQUE: ?? Frontal radiographic view of the chest acquired. COMPARISON: ?? Comparison 03/13/2020. FINDINGS: LUNGS/PLEURA: ??No focal consolidation or pneumothorax. No pleural effusion. HEART/MEDIASTINUM: ??Heart size is normal. Normal mediastinal and hilar contours. HARDWARE/LINES/TUBES: ??None. BONES: ??No acute findings. OTHER: ??No other significant finding. IMPRESSION: ?? No acute cardiopulmonary disease. THIS IS AN ELECTRONICALLY VERIFIED FINAL REPORT 11/15/2020 7:46 PM - Electronically signed by Ashley Garzon M.D. LC: PARK D: ??11/15/2020 7:46 PM T: ??11/15/2020 7:46 PM Report ID: [id number] Reading Location: ??[id number] Procedure Note Ashley Garzon MD - 11/15/2020 EXAM DESCRIPTION: XR CHEST 1 VIEW REASON FOR STUDY: 25-year-old female presents to ED with complaints of vomiting since this afternoon. Patient is type 1 diabetic. Patient does report shortness of breath. Denies any chest pain or diarrhea. Deniesany fevers or chills.Duration: today TECHNIQUE: Frontal radiographic view of the chest acquired. COMPARISON: Comparison 03/13/2020. FINDINGS: LUNGS/PLEURA: No focal consolidation or pneumothorax. No pleuraleffusion. HEART/MEDIASTINUM: Heart size is normal. Normal mediastinal and hilar contours. HARDWARE/LINES/TUBES: None. BONES: No acute findings. OTHER: No other significant finding. IMPRESSION: No acute cardiopulmonary disease. THIS IS AN ELECTRONICALLY VERIFIED FINAL REPORT 11/15/2020 7:46 PM - Electronically signed by Ashley Garzon M.D. LC: PARK Report ID: [id number] Reading Location: [id number] us Seamus Bateman MD IMG XR PROCEDURES Final Res ult * eGFR (11/15/2020 7:04 PM CDT) eGFR 138 mL/min/1.7 3 m2 [facility] ([place]) Comment: Interpretive Data [...] interpretive data was last reviewed 2020 Blood specimen (specimen) 11/15/2020 7:04 PM CDT 11/15/2020 7:06 PM CDT us Magdalena Deleon MEDICAL TRANSPORT SPECIALIST LAB BLOOD ORDERABLES Final R esult [facility] ([place]) [address] [facility] Department [place] [address] * (ABNORMAL) Differential, auto (11/15/2020 7:04 PM CDT) Neutrophil abs 10.3(H) 1.7 - 6.5 K/cumm [facility] ([place]) Imm gran abs 0.0 0.0 - 0.1 K/cumm [facility] ([place]) Lymphocyte abs 0.6(L) 0.8 - 3.3 K/cumm [facility] ([place]) Monocyte abs 0.2 0.2 - 0.8 K/cumm [facility] ([place]) Eosinophil abs 0.0 0.0 - 0.5 K/cumm [facility] ([place]) Basophil abs 0.0 0.0 - 0.1 K/cumm [facility] ([place]) Neutrophil pct 92.1 % [facility] ([place]) Comment: Interpretive [...] was last revised on 2017. Lymphocyte pct 5.5 % [facility] ([place]) Comment: Interpretive Data Percent cell count reference ranges are not reported, since discordance with absolute values may lead to misinterpretation of CBC data. Current Interpretive Data was last revised on 2017. Monocyte pct 2.0 % [facility] ([place]) Comment: Interpretive Data [...] Data was last revised on 2017. Blood specimen (specimen) 11/15/2020 7:04 PM CDT 11/15/2020 7:06 PM CDT us Magdalena Deleon MEDICAL TRANSPORT SPECIALIST LAB BLOOD ORDERABLES Final R esult [facility] ([place]) [address] Department [place] [address] * (ABNORMAL) Comprehensive metabolic panel (11/15/2020 7:04 PM CDT) Sodium 136 135 - 145 mmol/L [facility] ([place]) Potassium, pl 3.8 3.3 - 4.9 mmol/L [facility] ([place]) Chloride 98 97 - 110 mmol/L [facility] ([place]) CO2 21(L) 22 - 32 mmol/L [facility] ([place]) Anion gap 17(H) 2 - 15 mmol/L [facility] ([place]) BUN 13 8 - 25 mg/dL [facility] ([place]) Creatinine 0.47(L) 0.60 - 1.10 mg/dL [facility] ([place]) Glucose 289(H) 70 - 199 mg/dL [facility] ([place]) [...] 5.0 g/dL [facility] ([place]) Alk phos 81 40 - 130 Units/L [facility] ([place]) ALT 11 7 - 45 Units/L [facility] ([place]) AST 16 10 - 45 Units/L [facility] ([place]) Blood specimen (specimen) 11/15/2020 7:04 PM CDT 11/15/2020 7:06 PM CDT us Magdalena Deloen MEDICAL TRANSPORT SPECIALIST LAB BLOOD ORDERABLES Final R esult [facility] ([place]) [address] [facility] [employer] [place] [address] * (ABNORMAL) CBC with auto differential (11/15/2020 7:04 PM CDT) WBC 11.2(H) 3.8 - 9.9 K/cumm [facility] ([place]) Hgb 12.2 11.9 - 15.5 g/dL [facility] ([place]) Hct 37.6 35.6 - 45.5 % [facility] ([place]) Plt 471(H) 150 - 400 K/cumm [facility] ([place]) MPV 9.1 9.1 - 12.3 fL [facility] ([place]) RBC 4.81 3.90 - 5.20 M/cumm [facility] ([place]) MCV 78.2(L) 81.3 - 96.4 fL [facility] ([place]) MCH 25.4(L) 27.1 - 33.3 pg [facility] ([place]) MCHC 32.4 32.3 - 35.7 g/dL [facility] ([place]) RDW CV 15.7(H) 11.1 - 14.9 % [facility] ([place]) RDW SD 44.6 35.7 - 48.1 fL [facility] ([place]) NRBC abs 0.00 0.00 - 0.01 K/cumm [facility] ([place]) Blood specimen (specimen) 11/15/2020 7:04 PM CDT 11/15/2020 7:06 PM CDT us Magdalena Deleon MEDICAL TRANSPORT SPECIALIST LAB BLOOD ORDERABLES Final R esult [facility] ([place]) 1 [facility] [employer] [place] [address] documented in this encounter Visit Diagnoses Diagnosis DKA (diabetic ketoacidoses) Type II or unspecified type diabetes mellitus with ketoacidosis, not stated as uncontrolled DKA (diabetic ketoacidoses) Type II or unspecified type diabetes mellitus with ketoacidosis, not stated as uncontrolled Noncompliance with medication regimen Personal history of noncompliance with medical treatment, presenting hazards to health Depression Depressive disorder, not elsewhere classified Diabetic gastroparesis ([facility] ([facility]) Type II or unspecified type diabetes mellitus with neurological manifestations, not stated as uncontrolled Diabetic ketoacidosis without coma associated with type 1 diabetes mellitus ([facility] ([facility]) Intractable vomiting Persistent vomiting Cannabinoid hyperemesis syndrome Marijuana abuse Nondependent cannabis abuse, unspecified documented in this encounter Admitting Diagnoses Diagnosis DKA (diabetic ketoacidoses) Type II or unspecified type diabetes mellitus with ketoacidosis, not stated as [...] UNABLE to swallow/take PO glucose/juice., Starting on 11/16/20 at 0827, After treatment for hypoglycemia, recheck BG followed by treatment every 15 minutes until the BG is greater than 100 mg/dL. Then check BG 1 hour post treatment. If BG is less than 100 mg/dL, repeat Q15 minute BG checks and treatment. Call MD for each episode of hypoglycemia., Indications: hypoglycemic disorderIndications:hypoglyce lakes[place]ia disorder dextrose 5% and Lactated Ringer's infusion 75 mL/hr, intravenous, Continuous, Starting on 11/16/20 at 0900 New Bag 11/18/2020 9:09 AM CDT 75 mL/hr 75 mL/hr New Bag 11/17/2020 8:33 PM CDT 75 mL/hr 75 mL/hr Rate/Dose Verify 11/17/2020 7:05 PM CDT 75 mL/hr 75 mL/h r dextrose 5% infusion 100 mL/hr, intravenous, Continuous, Starting on Wed11/15/20 at 2002, Start when blood glucose less than 250 mg/dL and decrease rate of previous IV fluid infusion order. Notify MD when blood glucose less than 250 mg/dL and adjusting IV fluids. New Bag 11/15/2020 10:00 PM CDT 100 mL/hr 100 mL/hr New Bag 11/15/2020 8:32 PM CDT 100 mL/hr 100 mL/hr dextrose gel in packet 15 g 15 g, oral, Every 15 min PRN, low blood sugar, blood glucose less than 70 mg/dL, Starting on 11/16/20 at 0827, If patient is alert and able to [...] of hypoglycemia., Indications: hypoglycemic disorderIndications:hypoglycemi c disorder famotidine (PEPCID) injection 20 mg 20 mg, intravenous, Administer over 2 Minutes, 2 times daily, First dose on 11/16/20 at 1400, Medication, pantoprazole 40 mg ivp q 24 hrs , changed from PPI to H2 antagonist famotidine 20 mg ivp q 12 hrs per protocol for indication of stress ulcer prophylaxis. Estimated Creatinine Clearance: 211.2 mL/min (A) (by C-G formula based on SCr of 0.31 mg/dL (L))., Indications: Prevention of Stress UlcerIndications:Prevention of Stress Ulcer glucagon injection 1 mg 1 mg, intramuscular, Administer over 1 Minutes, Every 30 min PRN, low blood sugar, blood glucose less than 70 mg/dL AND no IV access AND unable to take PO glucose/jiuce., Starting on 11/16/20 at 0827, After Glucagon is administered, position patient on [...] with 1 mL SWFI. Use immediately following reconstitution., Indications: HypoglycemiaIndications:Hypogly cemia insulin glargine (LANTUS, BASAGLAR, SEMGLEE) 100 unit/mL (3 mL) pen injection 25 Units 25 Units, subcutaneous, Every morning, First dose (after last modification) on Wed11/16/20 at 0900, Attach new pen needle required for each administration. Each new pen must be primed prior to first administration. Do not mix with other insulins. Given 11/17/2020 8:48 AM CDT 25 Units Le ft Upper Arm Given 11/16/2020 10:20 AM CDT 25 Units L eft Upper Arm insulin glargine (LANTUS, BASAGLAR, SEMGLEE) 100 unit/mL (3 mL) pen injection 40 Units 40 Units, subcutaneous, Every morning, First dose (after last modification) on Wed11/18/20 at 0900, Attach new pen needle required for each administration. Each new pen must be primed prior to first administration. Do not mix with other insulins. Given 11/18/2020 9:12 AM CDT 40 Units Left Lower Abdomen insulin glargine (LANTUS, BASAGLAR, SEMGLEE) 100 unit/mL (3 mL) pen injection 50 Units 50 Units, subcutaneous, Every morning, First dose (after last modification) on Wed11/19/20 at 0900, Attach new pen needle required for each administration. Each new pen must be primed prior to first administration. Do not mix with other insulins. insulin lispro (HumaLOG, ADMELOG) 100 unit/mL pen injection 1-7 Units 1-7 Units, subcutaneous, Every 4 hours, First dose (after last modification) on Wed11/16/20 at 1600, Blood Sugar High Dose meal time - PO patients 139 or less No insulin 140 - 175 2 unit 176 - 200 3 unit 201 - 250 5 units 251 - 299 7 units Greater than 299 Call MD for hyperglycemia management instructions Do NOT hold for NPO status. Attach new pen needle required for each administration. Each new pen must be primed prior to first administration., Indications: Diabetes MellitusIndications:Diabetes Mellitus Given 11/18/2020 9:12 AM CDT 3 Units Left Lower Abdomen Given 11/18/2020 4:06 AM CDT 5 Units Le ft Lower Abdomen Given 11/18/2020 12:05 AM CDT 2 Units L eft Upper Arm insulin regular (HumuLIN R, NovoLIN R) 100 Units in sodium chloride 0.9% 100 mL (1 Units/mL) infusion 0-30 Units/hr (0-30 mL/hr), 1 units/mL, intravenous, Titrated, Starting on Wed11/15/20 at 2015, Until Wed11/16/20 at 0615, Indications: Hyperglycemia, Desired Range (mg/dL): 130-180 general patients, Multiplier: 0.01, NON-WEIGHT BASED DOSING Adjust rate per GlucoStabilizer program for dka order When new IV tubing is used, completely prime the tubing. Once primed, waste an additional 20 ml of insulin infusion using the IV pump prior to connecting to patient., RoutineIndications:Hyperglyc emia Rate/Dose Change 11/16/2020 5:00 AM CDT 5.6 Units/hr 5.6 mL/hr Rate/Dose Change 11/16/2020 1:55 AM CDT 5.8 Units/hr 5.8 m L/hr New Bag 11/15/2020 8:56 PM CDT 4 Units/hr 4 mL/hr scopolamine patch 72 hour 1 patch 1 patch, transdermal, Administer over 72 Hours, Once, On 11/16/20 at 1400, For 1 dose Medication Applied 11/16/2020 1:38 PM CDT 1 patch Behind Left Ear sodium chloride 0.45% infusion 150 mL/hr, intravenous, Continuous, Starting on Wed11/15/20 at 2001, Decrease rate to 50 mL/hr when blood glucose less than 250 mg/dL. Rate/Dose Change 11/15/2020 10:01 PM CDT 50 mL/hr 50 mL/hr New Bag 11/15/2020 8:30 PM CDT 150 mL/hr 150 mL/hr sodium chloride 0.9% bolus 1,000 mL 1,000 mL, intravenous, at 1,000 mL/hr, Administer over 1 Hours, Once, On Wed11/15/20 at 1836, For 1 dose New Bag 11/15/2020 7:07 PM CDT 1,000 mL 1000 mL/hr sodium chloride 0.9% bolus 1,000 mL 1,000 mL, intravenous, at 1,000 mL/hr, Administer over 1 Hours, Once, On Wed11/15/20 at 2002, For 1 dose New Bag 11/15/2020 8:35 PM CDT 1,000 mL 1000 mL/hr documented in this encounter Discontinued Medications Medication Sig Discontinue Reason Start Date End Da te amoxicillin-clavulanate (AUGMENTIN) 875-125 mg per tablet TAKE 1 TABLET BY MOUTH EVERY 12 HOURS FOR 2 DAYS Therapy completed 03/23/2020 11/16/2020 folic acid (FOLVITE) 1 mg tablet TAKE 3 TABLETS BY MOUTH ONCE DAILY Therapy completed 03/22/2020 11/16/2020 insulin glargine (LANTUS,BASAGLAR) 100 unit/mL (3 mL) insulin pen Inject 14 Units under the skin daily Dose adjustment 11/16/2020 documented as of this encounter Historical Medications * This list may reflect changes made after this encounter. insulin glargine (LANTUS, BASAGLAR, SEMGLEE) 100 unit/mL (3 mL) pen for injection Inject 15 Units under the skin nightly 07/23/2021 added in this encounter Active and Recently Administered Medications Times are shown in CDT. Scheduled Medication Order 11/16/2020 11/17/2020 11/18/2020 enoxaparin (LOVENOX) syringe 40 mg 40 mg, subcutaneous, Daily (for enoxaparin), First dose on 11/16/20 at 2100, Indications: Deep Vein Thrombosis Prevention 2020 (Not Given - Provider: Cammie Tavares RN - Reason: Patient/family refused) 2032 (Not Given - Provider: Hilaria Fuchs RN - Reason: Patient/family refused) famotidine (PEPCID) injection 20 mg 20 mg, intravenous, Administer over 2 Minutes, 2 times daily, First dose on 11/16/20 at 1400, Medication, pantoprazole 40 mg ivp q 24 hrs , changed from PPI to H2 antagonist famotidine 20 mg ivp q 12 hrs per protocol for indication of stress ulcer prophylaxis. Estimated Creatinine Clearance: 211.2 mL/min (A) (by C-G formula based on SCr of 0.31 mg/dL (L))., Indications: Prevention of Stress Ulcer 1340 (Not Given - Provider: Hanh Miner RN - Reason: Patient/family refused - Comment: pt. stated I don't want it )2021 (Not Given - Provider: Cammie Tavarse RN - Reason: Patient/family refused) 0847 (Not Given - Provider: Hanh Miner RN - Reason: Patient/family refused)2032 (Not Given - Provider: Hilaria Fuchs RN - Reason: Patient/family refused) 09 (Not Given - Provider: Soniya Clifford RN - Reason: Patient/family refused) insulin glargine (LANTUS, BASAGLAR, SEMGLEE) 100 unit/mL (3 mL) pen injection 25 Units (CANCELED) 25 Units, subcutaneous, Every morning, First dose (after last modification) on Wed11/16/20 at 0900, Attach new pen needle required for each administration. Each new pen must be primed prior to first administration. Do not mix with other insulins. 1020 (Given - Provider: Hanh Miner RN) 0848 (Given - Provider: Hanh Miner RN) insulin glargine (LANTUS, BASAGLAR, SEMGLEE) 100 unit/mL (3 mL) pen injection 40 Units (CANCELED) 40 Units, subcutaneous, Every morning, First dose (after last modification) on Wed11/18/20 at 0900, Attach new pen needle required for each administration. Each new pen must be primed prior to first administration. Do not mix with other insulins. 09 (Given - Provider: Soniya Clifford, MARY) insulin glargine (LANTUS, BASAGLAR, SEMGLEE) 100 unit/mL (3 mL) pen injection 50 Units 50 Units, subcutaneous, Every morning, First dose (after last modification) on Wed11/19/20 at 0900, Attach new pen needle required for each administration. Each new pen must be primed prior to first administration. Do not mix with other insulins. insulin lispro (HumaLOG, ADMELOG) 100 unit/mL pen injection 1-7 Units 1-7 Units, subcutaneous, Every 4 hours, First dose (after last modification) on Wed11/16/20 at 1600, Blood Sugar High Dose meal time - PO patients 139 or less No insulin 140 - 175 2 unit 176 - 200 3 unit 201 - 250 5 units 251 - 299 7 units Greater than 299 Call MD for hyperglycemia management instructions Do NOT hold for NPO status. Attach new pen needle required for each administration. Each new pen must be primed prior to first administration., Indications: Diabetes Mellitus 1631 (Given - Provider: Hanh Miner RN)2025 (Given - Provider: Cammie Tavares, RN) 0000 (Given - Provider: Cammie Tavares, RN)0401 (Given - Provider: Cammie Tavares, RN)0848 (Given - Provider: Hanh Miner RN)1228 (Given - Provider: Hanh Miner RN)1702 (Given - Provider: Hanh Miner RN)203 (Given - Provider: Hilaria Fuchs, RN) 0005 (Given - Provider: Hilaria Fuchs, RN)0406 (Given - Provider: Hilaria Fuchs, MARY)0912 (Given - Provider: Soniya Clifford RN)1200 (Due) potassium phosphates 30 mmol in sodium chloride 0.9% 500 mL IVPB 30 mmol, intravenous, at 85 mL/hr, Administer over 6 Hours, Once, On 11/18/20 at 1000, For 1 dose, For PERIPHERAL line administration Each 1 mmol of phosphorus ordered contains ~1.5 mEq of potassium. 1000 (Due) scopolamine patch 72 hour 1 patch 1 patch, transdermal, Administer over 72 Hours, Once, On 11/16/20 at 1400, For 1 dose 1338 (Medication Applied - Provider: Hanh Miner RN) 1534 (Due: Medication Removed - Provider: Automatic Discharge Provider - Comment: Time automatically adjusted from order being discontinued) Continuous Medication Order 11/16/2020 11/17/2020 11/18/2020 dextrose 5% and Lactated Ringer's infusion 75 mL/hr, intravenous, Continuous, Starting on 11/16/20 at 0900 1019 (New Bag - Provider: Hanh Miner RN)1630 (Rate/Dose Change - Provider: Hanh Miner RN)2019 (New Bag - Provider: Cammie Tavares, RN) 0852 (New Bag - Provider: Hanh Miner RN)1905 (Rate/Dose Verify - Provider: Hanh Miner RN)2032 (New Bag - Provider: Hilaria Fuchs RN) 0909 (New Bag - Provider: Soniya Clifford RN) insulin regular (HumuLIN R, NovoLIN R) 100 Units in sodium chloride 0.9% 100 mL (1 Units/mL) infusion (CANCELED) 0-30 Units/hr (0-30 mL/hr), 1 units/mL, intravenous, Titrated, Starting on Wed11/15/20 at 2015, Until 11/16/20 at 0615, Indications: Hyperglycemia, Desired Range (mg/dL): 130-180 general patients, Multiplier: 0.01, NON-WEIGHT BASED DOSING Adjust rate per GlucoStabilizer program for dka order When new IV tubing is used, completely prime the tubing. Once primed, waste an additional 20 ml of insulin infusion using the IV pump prior to connecting to patient., Routine 0155 (Rate/Dose Change - Provider: Cammie Rangel RN)0500 (Rate/Dose Change - Provider: Cammie Rangel RN)0624 (Stopped - Provider: Cammie Rangel RN) PRN Medication Order 11/16/2020 11/17/2020 11/18/2020 dextrose (D10W) 10% bolus 250 mL(Linked Group 1) 250 mL, intravenous, at 1,000 mL/hr, Administer over 15 Minutes, Every 15 min PRN, blood glucose less than 70 mg/dL and UNABLE to swallow/take PO glucose/juice., Starting on 11/16/20 at 0827, After treatment for hypoglycemia, recheck BG followed [...] glucose less than 70 mg/dL, Starting on 11/16/20 at 0827, If patient is alert and able to [...] glucagon injection 1 mg 1 mg, intramuscular, Administer over 1 Minutes, Every 30 min PRN, low blood sugar, blood glucose less than 70 mg/dL AND no IV access AND unable to take PO glucose/jiuce., Starting on 11/16/20 at 0827, After Glucagon is administered, position patient on [...] with 1 mL SWFI. Use immediately following reconstitution., Indications: Hypoglycemia Linked Groups Order Group 1: dextrose gel in packet 15 gJump to med 15 g, oral, Every 15 min PRN, low blood sugar, blood glucose less than 70 mg/dL, Starting on 11/16/20 at 0827, If patient is alert and able to [...] UNABLE to swallow/take PO glucose/juice., Starting on 11/16/20 at 0827, After treatment for hypoglycemia, recheck BG followed [...] SEMGLEE) 100 unit/mL (3 mL) pen injection 50 Units 1 11/18/2020 potassium phosphates 30 mmol in sodium chloride 0.9% 500 mL IVPB 1 11/18/2020 dextrose (D10W) 10% bolus 250 mL 2 11/17/19 21 dextrose gel in packet 15 g 2 11/16/2020 enoxaparin (LOVENOX) syringe 40 mg 1 2020 famotidine (PEPCID) injection 20 mg 1 11/16 glucagon injection 1 mg 2 11/16/2020 haloperidoL (HALDOL) tablet 5 mg 1 11/17/19 21 insulin glargine (LANTUS, BA SAGLAR, SEMGLEE) 100 unit/mL (3 mL) pen injection 12 Units 1 11/16/2020 insulin lispro (HumaLOG, ADM ELOG) 100 unit/mL pen injection 1-3 Units 1 11/16/2020 insulin lispro (HumaLOG, ADM ELOG) 100 unit/mL pen injection 1-4 Units 1 11/16/2020 insulin lispro (HumaLOG, ADM ELOG) 100 unit/mL pen injection 1-5 Units 1 11/16/2020 insulin lispro (HumaLOG, ADM ELOG) 100 unit/mL pen injection 1-7 Units 1 11/16/2020 pantoprazole (PROTONIX) injection 40 mg 1 0 11/16/2020 sodium chloride 0.9% infusion 1 11/16/2020 dextrose (D10W) 10% bolus 1-500 mL 2 2020 insulin regular (HumuLIN R, NovoLIN R) 100 Units in sodium chloride 0.9% 100 mL (1 Units/mL) infusion 1 11/15/2020 insulin regular bolus from bag 1-10 Units 2 11/15/2020 metoclopramide (REGLAN) injection 10 mg 1 0 11/15/2020 potassium chloride 40 mEq in sodium chloride 0.9% 500 mL IVPB 1 11/15/2020 Lab Orders Without Results Count Last Ordered D ate First Ordered Date POCT GLUCOSE DEVICE 8 11/18/2020 11/17/19 21 CORE MEASURES Count Last Ordered Date First Ord ered Date REASON FOR NO VTE PROPHYLAXI S - HOSPITAL ADMISSION - MEDICATIONS 1 11/16/2020 ADT Patient Update Count Last Ordered Date Firs t Ordered Date ED IP DECISION TO ADMIT 1 11/16/2020 documented in this encounter Care Teams Radioactive Waste Disposal Dispatcher Relationship Specialty Start Date End Date Carrie Joseph PA [address] [place], [place] [id number] PCP - General 10/04/18 07/19/21 Warren Phillips MD [address] [place] [address] Consulting Physician Gastroenterology 02/16/19 documented as of this encounter
--- OUTSIDE RECORDS SUMMARY | 2024-05-10 18:39 | XMS_ITS | Encounter Summary ---
Author Organization [facility] Healthcare Address [address] [place] [address] Care Team Providers Care Jail Manager Name Role Phone Carrie Joseph Primary Care Provider + Warren Phillips MD Unavailable [phone] Reason for Visit * Reason Comments Hyperglycemia Encounter Details Date Type Department Care Team (Latest Contact Info) Description 03/12/2020 7:42 PM GUARD CAPTAIN - 03/16/2020 1:44 PM GUARD CAPTAIN Hospital Encounter [facility] ICU [address] [place] [address] Dre Mancuso MD [address] [place] [address] [place] [id number] Tavo Miramontes MD [address] [place] [address] Ayana Prado MD [address] [place] [address] Sangeeta Ding MD [address] [place] [address] Sanjuanita Enamorado MD [address] [place] [address] Intractable vomiting, presence of nausea not specified, unspecified vomiting type (Primary Dx); DKA (diabetic ketoacidoses) ([facility]/HCC) Discharge Disposition: Left Against Medical Advice Social [...] on file Legal Sex Female 3:13 AM GUARD CAPTAIN Gender Identity Not on file Sexual Orientation Not on file documented as of this encounter Last Filed Vital Signs Vital Sign Reading Time Taken Comments Blood Pressure 128/90 03/16/2020 12:00 PM GUARD CAPTAIN Pulse 106 03/16/2020 12:00 PM GUARD CAPTAIN Temperature 36.4 ??C (97.6 ??F) 03/16/2020 12:[address] Respiratory Rate 15 03/16/2020 12:00 PM GUARD CAPTAIN Oxygen Saturation 99% 03/16/2020 12:00 PM GUARD CAPTAIN Inhaled Oxygen Concentration - - Weight 72.6 kg (160 lb) 03/12/2020 7:35 PM GUARD CAPTAIN Height 154.9 cm (5' 1 ) 03/12/2020 7:35 PM GUARD CAPTAIN Body Mass Index 30.23 03/12/2020 7:35 PM GUARD CAPTAIN documented in this encounter Discharge Diagnoses Diagnosis Pre-existing type 1 diabetes mellitus, in , first trimester - PRE- EXISTING TYPE 1 DIABETES MELLITUS, IN , FIRST TRIMESTER Type 1 diabetes mellitus with ketoacidosis without coma (HCC) - TYPE 1 DIABETES MELLITUS WITH KETOACIDOSIS WITHOUT COMA 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 (HCC) - TYPE 1 DIABETES MELLITUS WITH DIABETIC AUTONOMIC (POLY)NEUROPATHY Endocrine, nutritional and metabolic diseases complicating , first trimester - ENDOCRINE, NUTRITIONAL AND METABOLIC DISEASES COMPLICATING , FIRST TRIMESTER Hypokalemia - HYPOKALEMIA Hypopotassemia Less than 8 weeks gestation of - LESS THAN 8 WEEKS GESTATION OF Major depressive disorder, single episode, unspecified - MAJOR DEPRESSIVE DISORDER, SINGLE EPISODE, UNSPECIFIED Anxiety disorder, unspecified - ANXIETY DISORDER, UNSPECIFIED Other mental disorders complicating , first trimester - OTHER MENTAL DISORDERS COMPLICATING , FIRST TRIMESTER Gastroparesis - GASTROPARESIS Tachycardia, unspecified - TACHYCARDIA, UNSPECIFIED concrete batcher (current) use of insulin (HCC) - SPA EXPERIENCE COORDINATOR (CURRENT) USE OF INSULIN Personal history of other diseases of the digestive system - PERSONAL HISTORY OF OTHER DISEASES OF THE DIGESTIVE SYSTEM Underdosing of antiallergic and antiemetic drugs, initial encounter - UNDERDOSING OF ANTIALLERGIC AND ANTIEMETIC DRUGS, INITIAL ENCOUNTER Unspecified place in hospital as the place of occurrence of the external cause - UNSPECIFIED PLACE IN HOSPITAL THE PLACE OF OCCURRENCE OF THE EXTERNAL CAUSE Other specified events, undetermined intent, initial encounter - OTHER SPECIFIED EVENTS, UNDETERMINED INTENT, INITIAL ENCOUNTER documented in this encounter Discharge Summaries * Sanjuanita Enamorado MD - 03/16/2020 1:44 PM CST Inpatient Discharge Summary The patient left AMA because she being like being in the hospital in being on telemetry monitoring.Patient was refusing treatments. I went to her room and explained that it is better if she stays and continues treatment, it is better if she has at least some p.o. intake to make sure that she is tolerating diet, but she was not interested. The patient left AMA Sanjuanita Enamorado MD D CAPTAIN documented in this encounter Medications at Time of Discharge insulin lispro (HumaLOG) 100 unit/mL injection Inject under the skin 3 (three) times a day before meals Uses per sliding scale 1 unit per every 7-8 grams of carb max of 50 units per day insulin glargine (LANTUS,BASAGLAR) 100 unit/mL (3 mL) insulin pen Inject 14 Units under the skin daily 11/16/2020 OneTouch Verio test strips strip USE 1 STRIP TO CHECK GLUCOSE 4 TIMES DAILY 12/01/2019 01/29/2022 TechLITE Insulin Syr Half Unit 0.3 mL 31 gauge x 5/16 syringe USE ONE NEW SYRINGE 4 TIMES 02/21/2020 01/29/2022 documented as of this encounter Discharge Disposition Disposition Code Departure Means Destination Left Against Medical Advice documented in this encounter Progress Notes * Sanjuanita Enamorado MD - 03/16/2020 10:31 AM CST General Medicine Daily Progress SUBJECTIVE Chief complaint of hypopotassemia, nausea vomiting, DKA Interval History: Patient is declining p.r.n. nausea medications but continues to be nauseated andtrying to 1 mid without much output. OBJECTIVE Vitals: 24hr Min/Max: Temp Min: 36.2 ??C (97.2 ??F) Max: 37 ??C (98.6 ??F) Pulse Min: 82 Max: 130 BP Min: 89/55 Max: 160/87 Resp Min: 10 Max: 20 SpO2 Min: 97 % Max: 100 % Most Recent : Vitals: 03/16/20 1000 BP: 135/93 Pulse: 110 Resp: 18 Temp: SpO2: 100% I/O last 2 completed shifts: In: 3678 [I.V.:3678] Out: 2900 [Urine:2850; Emesis/NG output:50] I/O this shift: In: - Out: 800 [Urine:800] Physical Exam: Eyes: EOMI, ZORAIDA, sclare non icteric Neck: supple, no nuchal ridigity, no gross carotid bruits appreciated Pharynx: No gross oral lesion, tongue midline, mucosa moist Lungs CTA Heart: [id number], no significant murmur or gallop Abd: +BS, Non Tender, Non distended, No gross hepatomegaly Lower Ext: No gross edema, pedal artery pulses are palpable bilaterally Neuro: No new deficits appreciated Musculoskeletal: no gross joint erythema, edema, tenderness Skin: No new change Lab/Current Medication Review: Recent Results (from the past 24 hour(s)) POCT glucose Collection Time: 03/15/20 11:45 AM Result Value Ref Range Glucose, POC 123 (H) 71 - 98 mg/dL POCT glucose Collection Time: 03/15/20 12:33 PM Result Value Ref Range Glucose, POC 157 (H) 71 - 98 mg/dL POCT glucose Collection Time: 03/15/20 1:27 PM Result Value Ref Range Glucose, POC 105 (H) 71 - 98 mg/dL POCT glucose Collection Time: 03/15/20 2:34 PM Result Value Ref Range Glucose, POC 103 (H) 71 - 98 mg/dL POCT glucose Collection Time: 03/15/20 3:53 PM Result Value Ref Range Glucose, POC 183 (H) 71 - 98 mg/dL POCT glucose Collection Time: 03/15/20 4:51 PM Result Value Ref Range Glucose, POC 123 (H) 71 - 98 mg/dL POCT glucose Collection Time: 03/15/20 5:47 PM Result Value Ref Range Glucose, POC 118 (H) 71 - 98 mg/dL POCT glucose Collection Time: 03/15/20 6:44 PM Result Value Ref Range Glucose, POC 127 (H) 71 - 98 mg/dL POCT glucose Collection Time: 03/15/20 7:47 PM Result Value Ref Range Glucose, POC 123 (H) 71 - 98 mg/dL POCT glucose Collection Time: 03/15/20 8:49 PM Result Value Ref Range Glucose, POC 127 (H) 71 - 98 mg/dL POCT glucose Collection Time: 03/15/20 10:02 PM Result Value Ref Range Glucose, POC 124 (H) 71 - 98 mg/dL POCT glucose Collection Time: 03/15/20 11:02 PM Result Value Ref Range Glucose, POC 96 71 - 98 mg/dL POCT glucose Collection Time: 03/16/20 12:01 AM Result Value Ref Range Glucose, POC 107 (H) 71 - 98 mg/dL POCT glucose Collection Time: 03/16/20 12:57 AM Result Value Ref Range Glucose, POC 148 (H) 71 - 98 mg/dL POCT glucose Collection Time: 03/16/20 2:20 AM Result Value Ref Range Glucose, POC 156 (H) 71 - 98 mg/dL Phosphorus Collection Time: 03/16/20 3:24 AM Result Value Ref Range Phosphorus, pl 1.9 (L) 2.3 - 4.5 mg/dL Potassium Collection Time: 03/16/20 3:24 AM Result Value Ref Range Potassium, pl 2.8 (Critical) 3.3 - 4.9 mmol/L Magnesium Collection Time: 03/16/20 3:24 AM Result Value Ref Range Magnesium 1.8 1.4 - 2.5 mg/dL POCT glucose Collection Time: 03/16/20 3:32 AM Result Value Ref Range Glucose, POC 106 (H) 71 - 98 mg/dL POCT glucose Collection Time: 03/16/20 4:55 AM Result Value Ref Range Glucose, POC 145 (H) 71 - 98 mg/dL POCT glucose Collection Time: 03/16/20 6:20 AM Result Value Ref Range Glucose, POC 121 (H) 71 - 98 mg/dL POCT glucose Collection Time: 03/16/20 7:27 AM Result Value Ref Range Glucose, POC 128 (H) 71 - 98 mg/dL POCT glucose Collection Time: 03/16/20 8:26 AM Result Value Ref Range Glucose, POC 119 (H) 71 - 98 mg/dL POCT glucose Collection Time: 03/16/20 9:30 AM Result Value Ref Range Glucose, POC 114 (H) 71 - 98 mg/dL Xr Chest 1 Vw Portable Result Date: 03/13/2020 Narrative: [facility] Imaging Result Name: KARINA MENJIVAR Ordering Phys: TAVO MIRAMONTES Age: 24 Date of : 1995 Accession Number: [id number] Date of Service: 03/13/2020 Gender: F EXAM DESCRIPTION: XR CHEST 1 VIEW REASON FOR STUDY: patient is pregnate/vomiting today/nonsmoker/fever/diabetic/shielded for 1 xrayDuration: today TECHNIQUE: Frontal radiographic view of the chest acquired. COMPARISON: 04/25/2019 The heart, mediastinum, and pulmonary vasculature are grossly stable. There is no definite evidence of a pneumothorax. There is no definite evidence of focal consolidation or pleural effusion. The osseous structures are grossly stable. Impression: No acute cardiopulmonary disease. THIS IS AN ELECTRONICALLY VERIFIED FINAL REPORT 03/13/2020 12:37 AM - Electronically signed by Cristina Stringer D.O. PS: TANYA Report ID: [id number] Reading Location: [id number] Ob Limited Result Date: 03/07/2020 Narrative: There are no Discrete Measurement Components for this test result - Please see .pdf Current Facility-Administered Medications Medication Dose Route Frequency Provider Last Rate Last Admin ??? acetaminophen (TYLENOL) tablet 650 mg 650 mg oral Q4H PRN Sangeeta Ding MD ??? dextrose (D10W) 10% bolus 1-500 mL 1-500 mL intravenous PRN Sangeeta Ding MD ??? dextrose 5% and sodium chloride 0.45% infusion (premix) 150 mL/hr intravenous Continuous Sangeeta Ding MD 150 mL/hr at 03/16/20 0945 150 mL/hr at 03/16/20 0945 ??? enoxaparin (LOVENOX) syringe 40 mg 40 mg subcutaneous Daily-2100 Sangeeta Ding MD ??? insulin regular (HumuLIN R, NovoLIN R) 100 Units in sodium chloride 0.9% 100 mL (1 Units/mL) infusion 0-30 Units/hr intravenous Titrated Sangeeta Ding MD 2.4 mL/hr at 03/16/20 0930 2.4 Units/hr at 03/16/20 0930 ??? insulin regular bolus from bag 1-10 Units 1-10 Units intravenous PRN Sangeeta Ding MD ??? metoclopramide (REGLAN) injection 5 mg 5 mg intravenous Q8H BOB Sanjuanita Enamorado MD 5 mg at 03/15/20 0520 ??? ondansetron ODT (ZOFRAN-ODT) disintegrating tablet 4 mg 4 mg oral Q6H PRN Sangeeta Ding MD Or ??? ondansetron (ZOFRAN) injection 4 mg 4 mg intravenous Q6H PRN Sangeeta Ding MD 4 mg at 03/13/20 2318 ??? pantoprazole (PROTONIX) injection 40 mg 40 mg intravenous Daily Sangeeta Ding MD 40 mg at 03/14/20 0932 ??? potassium chloride 20 mEq in sodium chloride 0.9% 250 mL IVPB 20 mEq intravenous Q2H Ayana Prado MD 130 mL/hr at 03/16/20 0945 20 mEq at 03/16/20 0945 ??? potassium phosphates 29 mmol in sodium chloride 0.9% 500 mL IVPB 0.4 mmol/kg intravenous Once Sanjuanita Enamorado MD A/P: 1. hypopotassemia, replacing IV with potassium phosphate and potassium chloride 2. DKA, present on admission, resolved. Currently still on GlucoStabilizer protocol due to patient unable to eat. Continue IV fluids and insulin drip. 3. Noncompliant with medical treatment. Refusing nausea medication. 4. , no complication 5. Cannabinoid related cyclic vomiting syndrome, present on admission MDM moderate Principal Problem: Diabetic ketoacidosis without coma associated with type 1 diabetes mellitus (CMS/HCC) Active Problems: Depression Diabetic gastroparesis (CMS/HCC) Tachycardia T1DM in Intractable vomiting Resolved Problems: No resolved hospital problems. Voice recognition software OpenROV Direct was used dictate and transcribe this document. Supervisor Network Control Operators variances may occur. Despite proofreading, typographical errors may occur. Sanjuanita Enamorado MD 03/16/2020 10:31 AM D CAPTAIN * Kathryn Corrales [facility] - 03/16/2020 7:09 AM CST Electrolyte monitoring performed by pharmacy on labs from 03/16 324 (date & time), Na+=No Level K+=2.8 Mg+=1.8 Phos=1.9 Potassium phosphate 0.4 mmol/kg ( 29 mmol) replacement ordered. Kcl 20 meq IV x 3 doses also ordered by MD for K 2.8 Pharmacy will continue to follow daily. Thank you, Kathryn Corrales [facility] D CAPTAIN * Sanjuanita Enamorado MD - 03/15/2020 4:16 PM CST General Medicine Daily Progress SUBJECTIVE Chief complaint of DKA, persistent hypopotassemia, nausea vomiting Interval History: The patient is refusing nausea medications. Also refusing to eat because she is nauseated. I had a conversation with her and explained how it is important to take the treatments in order to get better soon. OBJECTIVE Vitals: 24hr Min/Max: Temp Min: 36.2 ??C (97.2 ??F) Max: 37 ??C (98.6 ??F) Pulse Min: 86 Max: 124 BP Min: 95/62 Max: 167/104 Resp Min: 10 Max: 20 SpO2 Min: 97 % Max: 100 % Most Recent : Vitals: 03/15/20 1500 BP: 112/64 Pulse: 97 Resp: 20 Temp: 37 ??C (98.6 ??F) SpO2: 99% I/O last 2 completed shifts: In: 4170 [I.V.:4170] Out: 3125 [Urine:3125] I/O this shift: In: 1696 [I.V.:1696] Out: 1200 [Urine:1200] Physical Exam: Eyes: EOMI, ZORAIDA, sclare non icteric Neck: supple, no nuchal ridigity, no gross carotid bruits appreciated Pharynx: No gross oral lesion, tongue midline, mucosa moist Lungs CTA Heart: [id number], no significant murmur or gallop Abd: +BS, Non Tender, Non distended, No gross hepatomegaly Lower Ext: No gross edema, pedal artery pulses are palpable bilaterally Neuro: No new deficits appreciated Musculoskeletal: no gross joint erythema, edema, tenderness Skin: No new change Lab/Current Medication Review: Recent Results (from the past 24 hour(s)) POCT glucose Collection Time: 03/14/20 4:31 PM Result Value Ref Range Glucose, POC 142 (H) 71 - 98 mg/dL POCT glucose Collection Time: 03/14/20 5:33 PM Result Value Ref Range Glucose, POC 121 (H) 71 - 98 mg/dL POCT glucose Collection Time: 03/14/20 6:29 PM Result Value Ref Range Glucose, POC 103 (H) 71 - 98 mg/dL POCT glucose Collection Time: 03/14/20 7:39 PM Result Value Ref Range Glucose, POC 113 (H) 71 - 98 mg/dL POCT glucose Collection Time: 03/14/20 8:46 PM Result Value Ref Range Glucose, POC 140 (H) 71 - 98 mg/dL POCT glucose Collection Time: 03/14/20 10:01 PM Result Value Ref Range Glucose, POC 117 (H) 71 - 98 mg/dL POCT glucose Collection Time: 03/14/20 11:15 PM Result Value Ref Range Glucose, POC 142 (H) 71 - 98 mg/dL POCT glucose Collection Time: 03/15/20 12:24 AM Result Value Ref Range Glucose, POC 115 (H) 71 - 98 mg/dL POCT glucose Collection Time: 03/15/20 1:40 AM Result Value Ref Range Glucose, POC 93 71 - 98 mg/dL POCT glucose Collection Time: 03/15/20 2:51 AM Result Value Ref Range Glucose, POC 141 (H) 71 - 98 mg/dL POCT glucose Collection Time: 03/15/20 4:01 AM Result Value Ref Range Glucose, POC 125 (H) 71 - 98 mg/dL Basic metabolic panel Collection Time: 03/15/20 4:46 AM Result Value Ref Range Sodium 131 (L) 135 - 145 mmol/L Potassium, pl 3.8 3.3 - 4.9 mmol/L Chloride 100 97 - 110 mmol/L CO2 16 (L) 22 - 32 mmol/L Anion gap 15 2 - 15 mmol/L BUN <3 (L) 8 - 25 mg/dL Creatinine 0.26 (L) 0.60 - 1.10 mg/dL Glucose 122 70 - 199 mg/dL Calcium 8.8 8.5 - 10.3 mg/dL eGFR Collection Time: 03/15/20 4:46 AM Result Value Ref Range GFR 169 mL/min/1.73 m2 Phosphorus Collection Time: 03/15/20 4:59 AM Result Value Ref Range Phosphorus, pl 2.8 2.3 - 4.5 mg/dL Magnesium Collection Time: 03/15/20 4:59 AM Result Value Ref Range Magnesium 1.8 1.4 - 2.5 mg/dL POCT glucose Collection Time: 03/15/20 5:08 AM Result Value Ref Range Glucose, POC 114 (H) 71 - 98 mg/dL POCT glucose Collection Time: 03/15/20 6:31 AM Result Value Ref Range Glucose, POC 131 (H) 71 - 98 mg/dL POCT glucose Collection Time: 03/15/20 7:57 AM Result Value Ref Range Glucose, POC 151 (H) 71 - 98 mg/dL POCT glucose Collection Time: 03/15/20 9:05 AM Result Value Ref Range Glucose, POC 108 (H) 71 - 98 mg/dL CBC with auto differential Collection Time: 03/15/20 9:24 AM Result Value Ref Range WBC 15.8 (H) 3.8 - 9.9 K/cumm Hgb 14.9 11.9 - 15.5 g/dL Hct 42.6 35.6 - 45.5 % Plt 442 (H) 150 - 400 K/cumm MPV 8.6 (L) 9.1 - 12.3 fL RBC 4.92 3.90 - 5.20 M/cumm MCV 86.6 81.3 - 96.4 fL MCH 30.3 27.1 - 33.3 pg MCHC 35.0 32.3 - 35.7 g/dL RDW CV 12.5 11.1 - 14.9 % RDW SD 39.4 35.7 - 48.1 fL NRBC abs 0.00 0.00 - 0.01 K/cumm Differential, auto Collection Time: 03/15/20 9:24 AM Result Value Ref Range Neutrophil abs 10.9 (H) 1.7 - 6.5 K/cumm Imm gran abs 0.1 0.0 - 0.1 K/cumm Lymphocyte abs 2.6 0.8 - 3.3 K/cumm Monocyte abs 2.1 (H) 0.2 - 0.8 K/cumm Eosinophil abs 0.0 0.0 - 0.5 K/cumm Basophil abs 0.0 0.0 - 0.1 K/cumm Neutrophil pct 68.9 % Imm gran pct 0.8 % Lymphocyte pct 16.7 % Monocyte pct 13.4 % Eosinophil pct 0.0 % Basophil pct 0.2 % POCT glucose Collection Time: 03/15/20 10:16 AM Result Value Ref Range Glucose, POC 115 (H) 71 - 98 mg/dL POCT glucose Collection Time: 03/15/20 11:45 AM Result Value Ref Range Glucose, POC 123 (H) 71 - 98 mg/dL POCT glucose Collection Time: 03/15/20 12:33 PM Result Value Ref Range Glucose, POC 157 (H) 71 - 98 mg/dL POCT glucose Collection Time: 03/15/20 1:27 PM Result Value Ref Range Glucose, POC 105 (H) 71 - 98 mg/dL POCT glucose Collection Time: 03/15/20 2:34 PM Result Value Ref Range Glucose, POC 103 (H) 71 - 98 mg/dL POCT glucose Collection Time: 03/15/20 3:53 PM Result Value Ref Range Glucose, POC 183 (H) 71 - 98 mg/dL Xr Chest 1 Vw Portable Result Date: 03/13/2020 Narrative: [facility] Imaging Result Name: KARINA MENJIVAR Ordering Phys: TAVO MIRAMONTES Age: 24 Date of : 1995 Accession Number: [id number] Date of Service: 03/13/2020 Gender: F EXAM DESCRIPTION: XR CHEST 1 VIEW REASON FOR STUDY: patient is pregnate/vomiting today/nonsmoker/fever/diabetic/shielded for 1 xrayDuration: today TECHNIQUE:Frontal radiographic view of the chest acquired. COMPARISON: 04/25/2019 The heart, mediastinum, andpulmonary vasculature are grossly stable. There is no definite evidence of a pneumothorax. There isno definite evidence of focal consolidation or pleural effusion. The osseous structures are grossly stable. Impression: No acute cardiopulmonary disease. THIS IS AN ELECTRONICALLY VERIFIED FINAL REPORT 03/13/2020 12:37 AM - Electronically signed by Cristina Stringer D.O. PS: PS Report ID: [id number] Reading Location: [address] Ob Limited Result Date: 03/07/2020 Narrative: There are no Discrete Measurement Components for this test result - Please see .pdf Current Facility-Administered Medications Medication Dose Route Frequency Provider Last Rate Last Admin ??? acetaminophen (TYLENOL) tablet 650 mg 650 mg oral Q4H PRN Sangeeta Ding MD ??? dextrose (D10W) 10% bolus 1-500 mL 1-500 mL intravenous PRN Sangeeta Ding MD ??? dextrose 5% and sodium chloride 0.45% infusion (premix) 150 mL/hr intravenous Continuous Sangeeta Ding MD 150 mL/hr at 03/15/20 1550 150 mL/hr at 03/15/20 1550 ??? enoxaparin (LOVENOX) syringe 40 mg 40 mg subcutaneous Daily-2099 Sangeeta Ding MD ??? insulin regular (HumuLIN R, NovoLIN R) 100 Units in sodium chloride 0.9% 100 mL (1 Units/mL) infusion 0-30 Units/hr intravenous Titrated Sangeeta Ding MD 5.5 mL/hr at 03/15/20 1555 5.5 Units/hr at 03/15/20 1555 ??? insulin regular bolus from bag 1-10 Units 1-10 Units intravenous PRN Sangeeta Ding MD ??? metoclopramide (REGLAN) injection 5 mg 5 mg intravenous Q8H [facility] Sanjuanita Enamorado MD 5 mg at 03/15/20 0520 ??? ondansetron ODT (ZOFRAN-ODT) disintegrating tablet 4 mg 4 mg oral Q6H PRN Sangeeta Ding MD Or ??? ondansetron (ZOFRAN) injection 4 mg 4 mg intravenous Q6H PRN Sangeeta Ding MD 4 mg at 03/13/20 2318 ??? pantoprazole (PROTONIX) injection 40 mg 40 mg intravenous Daily Sangeeta Ding MD 40 mg at 03/14/20 0932 A/P: 1. DKA, this is resolved. Blood sugar is much better. Currently on fluids with D5, unable to eat due to nausea 2. , no complications noted. 3. Nausea vomiting, suspect secondary to cyclic vomiting syndrome secondary to cannabinoid use. Strongly recommended to stay away from cannabinoids. 4. Tachycardia, this is secondary to DKA, this is much better MDM. Moderate Principal Problem: Diabetic ketoacidosis without coma associated with type 1 diabetes mellitus (CMS/HCC) Active Problems: Depression Diabetic gastroparesis (CMS/HCC) Tachycardia T1DM in Intractable vomiting Resolved Problems: No resolved hospital problems. Voice recognition software OpenROV Direct was used dictate and transcribe this document. Super[employer] Network Control Operators variances may occur. Despite proofreading, typographical errors may occur. Sanjuanita Enamorado MD 03/15/2020 4:16 PM D CAPTAIN D CAPTAIN * Lucinda Woodward, DIANDRA - 03/14/2020 2:31 PM CST Nutrition Assessment Reason for Assessment: Screened at Nutrition Risk and Initial Nutrition Assessment Encounter Date: 03/14/20 2:31 PM Nutrition Assessment and Plan: Patient is a 24 y.o. female. Admit Dx: INTRACTABLE VOMITING, PRESENCE OF NAUSEA NOT SPECIFIED, UNSPECIFIED VOMITING TYPE. Admitted on 03/12/2020, current LOS is 1 days. Nutrition Screen What diet do you follow at home?: Diabetic Have You Recently Lost Weight Without Trying?: No Poor Oral Intake for Four or More Days Prior to Admission: No Current diet order: NPO Diet Sips with meds Pt intake is inadequate. PO intakes: npo 03/13 Wt Readings from Last 10 Encounters: 03/12/20 72.6 kg (160 lb) 03/07/20 73.9 kg (163 lb) 12/01/19 75.9 kg (167 lb 5.3 oz) 06/16/19 61 kg (134 lb 7.7 oz) 04/26/19 59.7 kg (131 lb 9.8 oz) 04/24/19 59.8 kg (131 lb 13.4 oz) 03/24/19 59 kg (130 lb 1.1 oz) 02/16/19 64.7 kg (142 lb 10.2 oz) 02/10/19 56.7 kg (125 lb) 11/10/18 59.3 kg (130 lb 11.7 oz) Nutrition Diagnosis 1: Inadequate oral intake Related to: Chronic illness/injury, Nausea, Vomiting,Physiologic issue Evidenced by: Physical finding ?? Interventions: Education, nutrition, Mumford diet preferences within the limits of nutrition care order ?? Monitoring and Evaluation: Blood glucoses, Diet advancement, Discharge plans, PO intake, Labs ?? Goals: Adequate nutrition to meet estimated needs by next assessment ? Estimated needs: ?? Total Kcal/kg Estimated Needs : 1959.55 based on Kcal/k. Type of Weight Used for Estimated Kcals: Current ?? Total Protein Estimated Needs (gm): 65.32 Protein Needs Based on g/k.9 Type of Weight Used for Estimated Protein : Current. ?? Total Fluid Estimated Needs: 1814.4 Fluid Needs Based on : 25 ml/kg. Objective Anthropometrics Weight: 72.6 kg (160 lb) Admission Weight : 72.6 kg Weight Change: -1.36 kg (-3.00 lbs) IBW/kg (Calculated) : 47.6 kg Height: 154.9 cm (5' 1 ) Weight in (lb) to have BMI = 25: 132 BMI (Calculated): 30.2 3 Day I/O Summary 03/12 1900 - 03/14 0659 In: 4798 [I.V.:2798] Out: 825 [Urine:825] Temp: 36.4 ??C (97.6 ??F) Past Medical History: Diagnosis Date ??? Depression ??? Diabetes mellitus (CMS/HCC) T1DM ??? HX OTHER MEDICAL 2011 Diabetes mellitus, type 1 ??? Miscarriage Medications and Lab Review: Scheduled Meds: ??? enoxaparin, 40 mg, subcutaneous, Daily-2100 ??? metoclopramide, 5 mg, intravenous, Q8H BOB ??? pantoprazole, 40 mg, intravenous, Daily ??? potassium phosphate, 29 mmol, intravenous, Once Continuous Infusions: ??? dextrose 5% and sodium chloride 0.45%, 150 mL/hr, Last Rate: 150 mL/hr (03/14/20 1122) ??? insulin regular, 0-30 Units/hr, Last Rate: 2.8 Units/hr (03/14/20 1426) Sodium Date Value Ref Range Status 03/14/2020 132 (L) 135 - 145 mmol/L Final Potassium, pl Date Value Ref Range Status 03/14/2020 3.4 3.3 - 4.9 mmol/L Final BUN Date Value Ref Range Status 03/14/2020 6 (L) 8 - 25 mg/dL Final Creatinine Date Value Ref Range Status 03/14/2020 0.27 (L) 0.60 - 1.10 mg/dL Final Phosphorus, pl Date Value Ref Range Status 03/14/2020 2.3 2.3 - 4.5 mg/dL Final Albumin Date Value Ref Range Status 03/14/2020 4.0 3.5 - 5.0 g/dL Final Magnesium Date Value Ref Range Status 03/14/2020 1.7 1.4 - 2.5 mg/dL Final Calcium Date Value Ref Range Status 03/14/2020 9.0 8.5 - 10.3 mg/dL Final POC Glucose: 134(03/14) Nursing Assessment: Last BM Date: 03/12/20 Bowel Sounds (All Quadrants): Active Teodoro Scale Score: 19 Skin Integrity: Intact Nutrition Follow-Up : 03/18/[address],LDN D CAPTAIN * Shonda Yoo RN - 03/14/2020 11:59 AM CST CM Initial Assessment Interview Note Information Obtained From: Patient (03/14/201122) Admission Source: home Impression: DKA Plan Includes: evaluation Primary Source of Transportation: Does the patient need discharge transport arranged?: No(boyfriend or mother will transport home) (03/14/201122) Health Insurance Coverage: yes Prescription Coverage: yes Pharmacy: [facility] in [place] Primary Care Provider: Carrie Joseph PA Prior to Admission: Primary Caregiver: Self Support System: Spouse/Significant Other, Parent Home Care Services: No Durable Medical Equipment: None Living Arrangements: Spouse/significant other, Children Type of Residence: Apartment Steps in home? : Yes, Outside of home Number of steps outside:: 10 steps (03/13/20 0752) Potential discharge needs include: Patient lives in an apartment with her boyfriend and daughter. She is independent with mobility and adls. No devices used for mobility. Patient says she works and is able to drive. Patient will return to home at discharge and her boyfriend or mother will transporther to home. She gets her prescriptions from [facility] in [place]. No needs voiced at this time. Will continue to follow for discharge planning. Remains in icu. Patient expects to be Discharged to: Private residence, (03/14/201122) Patient's Identified Problem/Goal Problem: Ensure acute medical [...] Collaboration with patient, MD, direct care nurse, Performance Improvement Coordinator, Nurse Coordinator and other members of the health care team to assure needed interventions completed. 2. Return patient to optimal level of self-care post discharge. 3. Toy Department Manager will follow for Discharge Planning - interventions as needed 4. Anticipated level of care at discharge 5. Planned Discharge Disposition Based on a comprehensive family assessment, assistance with instrumental activities of daily livingafter discharge will be provided by patient. 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 She is independent with mobility andadls. No devices used for mobility. Patient says she works and is able to drive. Patient will return to home at discharge and her boyfriend or mother will transport her to home. She gets her prescriptions from [facility] in [place]. No needs voiced at this time. Will continue to follow for discharge planning. Remains in icu. D CAPTAIN * Pascual Espinal jacklyn - 03/14/2020 9:41 AM CST Electrolyte monitoring performed by pharmacy on labs from 03/14/2020 09:07, Na+=132 K+=3.4 Mg+=1.7 Phos=2.3 Potassium phosphate 29 mmol ivpb run X 1 dose per pharmacy electrolyte replacement protocol for phosphorous +=2.3 on 03/14/2020 (Potassium = 3.4) replacement ordered. Pharmacy will continue to followdaily. Thank you, Pascual Espinal RPh [facility] Pharmacy department D CAPTAIN * Sanjuanita Enamorado MD - 03/14/2020 9:39 AM CST General Medicine Daily Progress SUBJECTIVE Chief complaint of DKA, nausea vomiting, Interval History: Condition is improving except for patient continues to have nausea and vomiting. Unable to take anything p.o.. Will keep IV fluids. Also will give symptomatic treatment. Adding Reglan IV OBJECTIVE Vitals: 24hr Min/Max: Temp Min: 36.2 ??C (97.1 ??F) Max: 36.8 ??C (98.3 ??F) Pulse Min: 88 Max: 138 BP Min: 96/61 Max: 149/86 Resp Min: 16 Max: 24 SpO2 Min: 99 % Max: 100 % Most Recent : Vitals: 03/14/20 0500 BP: 121/76 Pulse: 88 Resp: 16 Temp: SpO2: 99% I/O last 2 completed shifts: In: 2798 [I.V.:2798] Out: 825 [Urine:825] No intake/output data recorded. Physical Exam: Eyes: EOMI, ZORAIDA, sclare non icteric Neck: supple, no nuchal ridigity, no gross carotid bruits appreciated Pharynx: No gross oral lesion, tongue midline, mucosa moist Lungs CTA Heart: [id number], no significant murmur or gallop Abd: +BS, Non Tender, Non distended, No gross hepatomegaly Lower Ext: No gross edema, pedal artery pulses are palpable bilaterally Neuro: No new deficits appreciated Musculoskeletal: no gross joint erythema, edema, tenderness Skin: No new change Lab/Current Medication Review: Recent Results (from the past 24 hour(s)) POCT glucose Collection Time: 03/13/20 10:36 AM Result Value Ref Range Glucose, POC 175 (H) 71 - 98 mg/dL POCT glucose Collection Time: 03/13/20 11:39 AM Result Value Ref Range Glucose, POC 153 (H) 71 - 98 mg/dL Magnesium Collection Time: 03/13/20 12:08 PM Result Value Ref Range Magnesium 1.9 1.4 - 2.5 mg/dL Phosphorus Collection Time: 03/13/20 12:08 PM Result Value Ref Range Phosphorus, pl 2.3 2.3 - 4.5 mg/dL Basic metabolic panel Collection Time: 03/13/20 12:08 PM Result Value Ref Range Sodium 134 (L) 135 - 145 mmol/L Potassium, pl 4.4 3.3 - 4.9 mmol/L Chloride 106 97 - 110 mmol/L CO2 11 (L) 22 - 32 mmol/L Anion gap 16 (H) 2 - 15 mmol/L BUN 13 8 - 25 mg/dL Creatinine 0.53 (L) 0.60 - 1.10 mg/dL Glucose 146 70 - 199 mg/dL Calcium 9.4 8.5 - 10.3 mg/dL eGFR Collection Time: 03/13/20 12:08 PM Result Value Ref Range GFR 134 mL/min/1.73 m2 Beta-hydroxybutyrate Collection Time: 03/13/20 12:25 PM Result Value Ref Range Beta-Hydroxybutyrate 0.8 (H) <=0.5 mmol/L POCT glucose Collection Time: 03/13/20 1:13 PM Result Value Ref Range Glucose, POC 114 (H) 71 - 98 mg/dL POCT glucose Collection Time: 03/13/20 2:50 PM Result Value Ref Range Glucose, POC 103 (H) 71 - 98 mg/dL POCT glucose Collection Time: 03/13/20 3:58 PM Result Value Ref Range Glucose, POC 109 (H) 71 - 98 mg/dL Lactate Collection Time: 03/13/20 4:24 PM Result Value Ref Range Lactate 0.7 0.7 - 2.0 mmol/L Basic metabolic panel Collection Time: 03/13/20 4:24 PM Result Value Ref Range Sodium 133 (L) 135 - 145 mmol/L Potassium, pl 3.7 3.3 - 4.9 mmol/L Chloride 103 97 - 110 mmol/L CO2 16 (L) 22 - 32 mmol/L Anion gap 14 2 - 15 mmol/L BUN 12 8 - 25 mg/dL Creatinine 0.33 (L) 0.60 - 1.10 mg/dL Glucose 141 70 - 199 mg/dL Calcium 9.2 8.5 - 10.3 mg/dL Magnesium Collection Time: 03/13/20 4:24 PM Result Value Ref Range Magnesium 1.8 1.4 - 2.5 mg/dL Phosphorus Collection Time: 03/13/20 4:24 PM Result Value Ref Range Phosphorus, pl 2.8 2.3 - 4.5 mg/dL eGFR Collection Time: 03/13/20 4:24 PM Result Value Ref Range GFR 156 mL/min/1.73 m2 POCT glucose Collection Time: 03/13/20 5:04 PM Result Value Ref Range Glucose, POC 142 (H) 71 - 98 mg/dL POCT glucose Collection Time: 03/13/20 6:12 PM Result Value Ref Range Glucose, POC 127 (H) 71 - 98 mg/dL POCT glucose Collection Time: 03/13/20 7:26 PM Result Value Ref Range Glucose, POC 112 (H) 71 - 98 mg/dL POCT glucose Collection Time: 03/13/20 8:32 PM Result Value Ref Range Glucose, POC 118 (H) 71 - 98 mg/dL Basic metabolic panel Collection Time: 03/13/20 8:33 PM Result Value Ref Range Sodium 133 (L) 135 - 145 mmol/L Potassium, pl 3.7 3.3 - 4.9 mmol/L Chloride 104 97 - 110 mmol/L CO2 17 (L) 22 - 32 mmol/L Anion gap 12 2 - 15 mmol/L BUN 12 8 - 25 mg/dL Creatinine 0.38 (L) 0.60 - 1.10 mg/dL Glucose 123 70 - 199 mg/dL Calcium 8.8 8.5 - 10.3 mg/dL Magnesium Collection Time: 03/13/20 8:33 PM Result Value Ref Range Magnesium 1.6 1.4 - 2.5 mg/dL Phosphorus Collection Time: 03/13/20 8:33 PM Result Value Ref Range Phosphorus, pl 2.6 2.3 - 4.5 mg/dL eGFR Collection Time: 03/13/20 8:33 PM Result Value Ref Range GFR 149 mL/min/1.73 m2 POCT glucose Collection Time: 03/13/20 9:48 PM Result Value Ref Range Glucose, POC 124 (H) 71 - 98 mg/dL POCT glucose Collection Time: 03/13/20 11:09 PM Result Value Ref Range Glucose, POC 119 (H) 71 - 98 mg/dL POCT glucose Collection Time: 03/14/20 12:35 AM Result Value Ref Range Glucose, POC 117 (H) 71 - 98 mg/dL POCT glucose Collection Time: 03/14/20 2:50 AM Result Value Ref Range Glucose, POC 121 (H) 71 - 98 mg/dL POCT glucose Collection Time: 03/14/20 4:47 AM Result Value Ref Range Glucose, POC 130 (H) 71 - 98 mg/dL CBC with auto differential Collection Time: 03/14/20 5:51 AM Result Value Ref Range WBC 25.0 (H) 3.8 - 9.9 K/cumm Hgb 14.2 11.9 - 15.5 g/dL Hct 41.6 35.6 - 45.5 % Plt 234 150 - 400 K/cumm MPV 10.3 9.1 - 12.3 fL RBC 4.72 3.90 - 5.20 M/cumm MCV 88.1 81.3 - 96.4 fL MCH 30.1 27.1 - 33.3 pg MCHC 34.1 32.3 - 35.7 g/dL RDW CV 12.8 11.1 - 14.9 % RDW SD 41.1 35.7 - 48.1 fL NRBC abs 0.00 0.00 - 0.01 K/cumm Manual Differential Collection Time: 03/14/20 5:51 AM Result Value Ref Range Differential Manual Cells Counted 100 Neutrophil abs 21.1 (H) 1.7 - 6.5 K/cumm Lymphocyte abs 2.3 0.8 - 3.3 K/cumm Monocyte abs 1.8 (H) 0.2 - 0.8 K/cumm Neutrophil pct 84.0 % Lymphocyte pct 7.0 % Monocyte pct 7.0 % Variant lymphs 2.0 (H) 0.0 - 0.0 % RBC morphology Consistent with RBC Indicies Platelet estimate Adequate POCT glucose Collection Time: 03/14/20 6:55 AM Result Value Ref Range Glucose, POC 112 (H) 71 - 98 mg/dL Comprehensive metabolic panel Collection Time: 03/14/20 9:07 AM Result Value Ref Range Sodium 132 (L) 135 - 145 mmol/L Potassium, pl 3.4 3.3 - 4.9 mmol/L Chloride 101 97 - 110 mmol/L CO2 19 (L) 22 - 32 mmol/L Anion gap 11 2 - 15 mmol/L BUN 6 (L) 8 - 25 mg/dL Creatinine 0.27 (L) 0.60 - 1.10 mg/dL Glucose 136 70 - 199 mg/dL Calcium 9.0 8.5 - 10.3 mg/dL Bilirubin, total 0.5 0.1 - 1.2 mg/dL Protein, pl 6.3 (L) 6.5 - 8.5 g/dL Albumin 4.0 3.5 - 5.0 g/dL Alk phos 78 40 - 130 Units/L ALT 8 7 - 45 Units/L AST 16 10 - 45 Units/L Phosphorus Collection Time: 03/14/20 9:07 AM Result Value Ref Range Phosphorus, pl 2.3 2.3 - 4.5 mg/dL Magnesium Collection Time: 03/14/20 9:07 AM Result Value Ref Range Magnesium 1.7 1.4 - 2.5 mg/dL POCT glucose Collection Time: 03/14/20 9:07 AM Result Value Ref Range Glucose, POC 125 (H) 71 - 98 mg/dL eGFR Collection Time: 03/14/20 9:07 AM Result Value Ref Range GFR 167 mL/min/1.73 m2 Xr Chest 1 Vw Portable Result Date: 03/13/2020 Narrative: [facility] Imaging Result Name: KARINA MENJIVAR Ordering Phys: TAVO MIRAMONTES Age: 24 Date of : 1995 Accession Number: [id number] Date of Service: 03/13/2020 Gender: F EXAM DESCRIPTION: XR CHEST 1 VIEW REASON FOR STUDY: patient is pregnate/vomiting today/nonsmoker/fever/diabetic/shielded for 1 xrayDuration: today TECHNIQUE:Frontal radiographic view of the chest acquired. COMPARISON: 04/25/2019 The heart, mediastinum, andpulmonary vasculature are grossly stable. There is no definite evidence of a pneumothorax. There isno definite evidence of focal consolidation or pleural effusion. The osseous structures are grossly stable. Impression: No acute cardiopulmonary disease. THIS IS AN ELECTRONICALLY VERIFIED FINAL REPORT 03/13/2020 12:37 AM - Electronically signed by Cristina Stringer D.O. PS: TANYA Report ID: [id number] Reading Location: [address] Ob Limited Result Date: 03/07/2020 Narrative: There are no Discrete Measurement Components for this test result - Please see .pdf Current Facility-Administered Medications Medication Dose Route Frequency Provider Last Rate Last Admin ??? acetaminophen (TYLENOL) tablet 650 mg 650 mg oral Q4H PRN Sangeeta Ding MD ??? dextrose (D10W) 10% bolus 1-500 mL 1-500 mL intravenous PRN Sangeeta Ding MD ??? dextrose 5% and sodium chloride 0.45% infusion (premix) 150 mL/hr intravenous Continuous Sangeeta Ding MD 150 mL/hr at 03/14/20 0445 150 mL/hr at 03/14/20 0445 ??? enoxaparin (LOVENOX) syringe 40 mg 40 mg subcutaneous Daily-2100 Sangeeta Ding MD ??? insulin regular (HumuLIN R, NovoLIN R) 100 Units in sodium chloride 0.9% 100 mL (1 Units/mL) infusion 0-30 Units/hr intravenous Titrated Sangeeta Ding MD 3.1 mL/hr at 03/14/20 0911 3.1 Units/hr at 03/14/20 0911 ??? insulin regular bolus from bag 1-10 Units 1-10 Units intravenous PRN Sangeeta Ding MD ??? metoclopramide (REGLAN) injection 5 mg 5 mg intravenous Q8H [facility] Sanjuanita Enamorado MD ??? ondansetron ODT (ZOFRAN-ODT) disintegrating tablet 4 mg 4 mg oral Q6H PRN Sangeeta Ding MD Or ??? ondansetron (ZOFRAN) injection 4 mg 4 mg intravenous Q6H PRN Sangeeta Ding MD 4 mg at 03/14/20 0933 ??? pantoprazole (PROTONIX) injection 40 mg 40 mg intravenous Daily Sangeeta Ding MD 40 mg at 03/14/20 0932 A/P: 1. Nausea vomiting, suspect due to cyclic vomiting syndrome due to use of cannabinoids. Patient is refusing Zofran at times. She states that is not helping but we need to try Zofran intermittently and I am adding Reglan, Reglan is category B . Could be underlying diabetic gastroparesis as well. 2. DKA, present on admission, resolved, continues to be on insulin drip and continues to be in ICU due to unable to take p.o.. 3. 6 weeks , no complaints. 4. Abnormal labs, patient's blood was hemolyzed this morning. Patient is very hard stick. Will leave her a lab holiday today since we already know his anion gap was closed. There is no source of infection found. Patient does not have fever, denies any complaints at this time except for nausea vomiting. Will get lab work tomorrow morning. MDM moderate Principal Problem: Diabetic ketoacidosis without coma associated with type 1 diabetes mellitus (CMS/HCC) Active Problems: Depression Diabetic gastroparesis (CMS/HCC) Tachycardia T1DM in Intractable vomiting Resolved Problems: No resolved hospital problems. Voice recognition software OpenROV Direct was used dictate and transcribe this document. Supervisor Network Control Operators variances may occur. Despite proofreading, typographical errors may occur. Sanjuanita Enamorado MD 03/14/2020 9:39 AM D CAPTAIN * Nya Waters, [facility] - 03/13/2020 10:31 AM CST An order to initiate electrolyte repletion by pharmacy has been received from Dr. Ding. IV or PO repletion will be ordered [...] days, then every other day. Thank you, Nya Waters [facility] Gur D CAPTAIN * Nya Waters [facility] - 03/13/2020 10:31 AM CST An order to initiate electrolyte repletion by pharmacy has been received from Dr. Ding. IV or PO repletion will be ordered [...] days, then every other day. Thank you, Nya Waters, [facility] department Gur D CAPTAIN * Dorian Morales, [facility] - 03/13/2020 7:53 AM CST An order to initiate electrolyte repletion by pharmacy has been received from Dr. Ding. IV or PO repletion will be ordered [...] days, then every other day. Thank you, Dorian Morales jacklyn [facility] Pharmacy department D CAPTAIN documented in this encounter H&P Notes * Sangeeta Ding MD - 03/13/2020 8:03 AM CST History and Physical Date of Service: 03/13/2020 Primary Care Physician: Carrie Joseph PA [phone] SUBJECTIVE Chief Complaints: Nausea, vomiting HPI: Karina Menjivar is a 24 y.o. female with a PMHx significant for Diabetes Mellitus Type 1, depression, multiple admissions for DKA presents to the ED with a chief complaint of nausea and vomiting. Patient is currently 6 weeks . She started having nausea and vomiting since yesterday. Denies any morning sickness recently. Denies any abdominal pain or fever or chills. she states that she has been taking her insulin as scheduled. No sick exposure. In the ER, patient was noted to be in DKA and was started on insulin drip and admitted to ICU for further evaluation and management. Past Medical History: Diagnosis Date ??? Depression ??? Diabetes mellitus (CMS/[facility]) T1DM ??? HX OTHER MEDICAL 2011 Diabetes mellitus, type 1 ??? Miscarriage Past Surgical History: Procedure Laterality Date ??? SECTION, CLASSIC 2017 ??? TONSILLECTOMY Bilateral 2002 Medications Prior to Admission Medication Sig Dispense Refill Last Dose ??? insulin glargine (LANTUS,BASAGLAR) 100 unit/mL (3 mL) insulin pen Inject 14 Units under the skin daily 03/12/2020 at Unknown time ??? insulin lispro (HumaLOG) 100 unit/mL injection Inject under the skin 3 (three) times a day before meals Uses per sliding scale 1 unit per every 8 grams of carb 03/12/2020 at Unknown time ??? OneTouch Verio test strips strip USE 1 STRIP TO CHECK GLUCOSE 4 TIMES DAILY 03/12/2020 at Unknown time ??? TechLITE Insulin Syr Half Unit 0.3 mL 31 gauge x 5/16 syringe USE ONE NEW SYRINGE 4 TIMES 03/12/2020 at Unknown time No Known Allergies Social History Tobacco Use ??? Smoking status: Never Smoker ??? Smokeless tobacco: Never Used Substance Use Topics ??? Alcohol use: Not Currently Frequency: Monthly or less Family History Problem Relation Age of Onset ??? No Known Problems Mother ??? Autism Brother Review of Systems: Review of Systems Denies any headache or double vision or blurred vision. Denies any sore throat. Denies any chest pain or palpitation. Denies any shortness of breath. Positive for nausea and vomiting. Denies any diarrhea, constipation. Denies any dysuria, urgency, frequency. Denies any hemiplegia, hemiparesis. Denies any seizure. Denies any fever, chills. Denies any weight loss. OBJECTIVE Vitals: Arrival Vitals [03/12/20 1935] Temp 36.1 ??C (97 ??F) Pulse (!) 135 Resp 18 BP 148/96 SpO2 99 % Temp src Temporal Heart Rate Source Patient Position BP Location FiO2 (%) Most Recent : Vitals: 03/13/20 0510 03/13/20 0530 03/13/20 0745 03/13/20 0800 BP: 130/67 139/79 116/57 Pulse: (!) 136 (!) 135 (!) 136 (!) 136 Resp: 12 12 Temp: 36.6 ??C (97.9 ??F) TempSrc: Temporal SpO2: 100% 100% 100% 100% Weight: Height: I/O last 2 completed shifts: In: 1999 [IV Piggyback:1999] Out: - No intake/output data recorded. Physical Exam: Physical Exam General appearance: Alert, oriented, in no distress. HEENT: Atraumatic, normocephalic. Pupils equal and reactive to light. Extraocular movements intact.Moist mucous membrane. CVS: S1, S2 normal Respiration: Clear to auscultation bilaterally Abdomen: Soft, nontender, nondistended, bowel sounds normoactive Extremities: No pedal edema, no calf tenderness Neuro: No focal deficits Psychiatric: Normal mood and affect Lab/Radiology/Diagnostic Review: Recent Results (from the past 24 hour(s)) POCT glucose Collection Time: 03/12/20 7:34 PM Result Value Ref Range Glucose, POC 196 (H) 71 - 98 mg/dL CBC with auto differential Collection Time: 03/12/20 8:08 PM Result Value Ref Range WBC 13.3 (H) 3.8 - 9.9 K/cumm Hgb 15.1 11.9 - 15.5 g/dL Hct 44.8 35.6 - 45.5 % Plt 466 (H) 150 - 400 K/cumm MPV 9.5 9.1 - 12.3 fL RBC 5.11 3.90 - 5.20 M/cumm MCV 87.7 81.3 - 96.4 fL MCH 29.5 27.1 - 33.3 pg MCHC 33.7 32.3 - 35.7 g/dL RDW CV 12.9 11.1 - 14.9 % RDW SD 41.4 35.7 - 48.1 fL NRBC abs 0.00 0.00 - 0.01 K/cumm Comprehensive metabolic panel Collection Time: 03/12/20 8:08 PM Result Value Ref Range Sodium 131 (L) 135 - 145 mmol/L Potassium, pl 4.5 3.3 - 4.9 mmol/L Chloride 97 97 - 110 mmol/L CO2 15 (L) 22 - 32 mmol/L Anion gap 19 (H) 2 - 15 mmol/L BUN 13 8 - 25 mg/dL Creatinine 0.43 (L) 0.60 - 1.10 mg/dL Glucose 221 (H) 70 - 199 mg/dL Calcium 10.1 8.5 - 10.3 mg/dL Bilirubin, total 0.4 0.1 - 1.2 mg/dL Protein, pl 7.4 6.5 - 8.5 g/dL Albumin 4.6 3.5 - 5.0 g/dL Alk phos 72 40 - 130 Units/L ALT 13 7 - 45 Units/L AST 34 10 - 45 Units/L Sepsis Lactate w/ Reflex Collection Time: 03/12/20 8:08 PM Result Value Ref Range Sepsis Lactate 2.6 (H) 0.7 - 2.0 mmol/L Protime-INR Collection Time: 03/12/20 8:08 PM Result Value Ref Range PT 13.0 9.5 - 13.0 sec INR 1.2 0.9 - 1.2 aPTT Collection Time: 03/12/20 8:08 PM Result Value Ref Range aPTT 23 (L) 25 - 37 sec Blood gas, venous Collection Time: 03/12/20 8:08 PM Result Value Ref Range pH, Venous 7.43 7.32 - 7.43 PCO2, Venous 29 (L) 40 - 50 mmHg PO2, Venous 83 mmHg HCO3 Venous, Calculated 19 (L) 20 - 30 mmol/L BE, venous -4 mmol/L hCG, blood, quantitative Collection Time: 03/12/20 8:08 PM Result Value Ref Range hCG, quant 27,122.0 (H) 0.0 - 5.0 IUnits/L Differential, auto Collection Time: 03/12/20 8:08 PM Result Value Ref Range Neutrophil abs 10.9 (H) 1.7 - 6.5 K/cumm Imm gran abs 0.1 0.0 - 0.1 K/cumm Lymphocyte abs 1.6 0.8 - 3.3 K/cumm Monocyte abs 0.7 0.2 - 0.8 K/cumm Eosinophil abs 0.0 0.0 - 0.5 K/cumm Basophil abs 0.0 0.0 - 0.1 K/cumm Neutrophil pct 81.9 % Imm gran pct 0.6 % Lymphocyte pct 12.3 % Monocyte pct 5.0 % Eosinophil pct 0.0 % Basophil pct 0.2 % eGFR Collection Time: 03/12/20 8:08 PM Result Value Ref Range GFR 143 mL/min/1.73 m2 Urinalysis reflex to microscopic and culture Urine Collection Time: 03/12/20 9:06 PM Specimen: Urine Result Value Ref Range Color, ur Yellow Yellow Clarity, ur Clear Clear Specific gravity, ur 1.027 (H) 1.010 - 1.025 pH, urine 5.5 Protein, ur ql Trace Negative Glucose, ur ql 4+ (A) Negative Ketones, ur 4+ (A) Negative Bilirubin, ur Negative Negative Blood, ur Negative Negative Urobilinogen, ur <2.0 <2.0 mg/dL Nitrite, ur Negative Negative Leukocyte esterase, ur Negative Negative UA reflex comment Reflex conditions for microscopic UA and culture not met. Sepsis Lactate w/ Reflex Collection Time: 03/12/20 10:24 PM Result Value Ref Range Sepsis Lactate 2.7 (H) 0.7 - 2.0 mmol/L POCT glucose Collection Time: 03/12/20 11:02 PM Result Value Ref Range Glucose, POC 224 (H) 71 - 98 mg/dL Sepsis Lactate w/ Reflex Collection Time: 03/12/20 11:55 PM Result Value Ref Range Sepsis Lactate 2.9 (H) 0.7 - 2.0 mmol/L Basic metabolic panel Collection Time: 03/13/20 2:13 AM Result Value Ref Range Sodium 131 (L) 135 - 145 mmol/L Potassium, pl 4.5 3.3 - 4.9 mmol/L Chloride 100 97 - 110 mmol/L CO2 13 (L) 22 - 32 mmol/L Anion gap 18 (H) 2 - 15 mmol/L BUN 12 8 - 25 mg/dL Creatinine 0.49 (L) 0.60 - 1.10 mg/dL Glucose 313 (H) 70 - 199 mg/dL Calcium 9.2 8.5 - 10.3 mg/dL eGFR Collection Time: 03/13/20 2:13 AM Result Value Ref Range GFR 137 mL/min/1.73 m2 POCT glucose Collection Time: 03/13/20 2:46 AM Result Value Ref Range Glucose, POC 291 (H) 71 - 98 mg/dL POCT glucose Collection Time: 03/13/20 4:42 AM Result Value Ref Range Glucose, POC 218 (H) 71 - 98 mg/dL POCT glucose Collection Time: 03/13/20 5:43 AM Result Value Ref Range Glucose, POC 186 (H) 71 - 98 mg/dL POCT glucose Collection Time: 03/13/20 6:48 AM Result Value Ref Range Glucose, POC 156 (H) 71 - 98 mg/dL POCT glucose Collection Time: 03/13/20 8:11 AM Result Value Ref Range Glucose, POC 129 (H) 71 - 98 mg/dL POCT glucose Collection Time: 03/13/20 9:16 AM Result Value Ref Range Glucose, POC 123 (H) 71 - 98 mg/dL Xr Chest 1 Vw Portable Result Date: 03/13/2020 Narrative: [facility] Imaging Result Name: KARINA MENJIVAR Ordering Phys: TAVO HARTULLOUGH Age: 24 Date of : 1995 Accession Number: [id number] Date of Service: 03/13/2020 Gender: F EXAM DESCRIPTION: XR CHEST 1 VIEW REASON FOR STUDY: patient is pregnate/vomiting today/nonsmoker/fever/diabetic/shielded for 1 xrayDuration: today TECHNIQUE:Frontal radiographic view of the chest acquired. COMPARISON: 04/25/2019 The heart, mediastinum, andpulmonary vasculature are grossly stable. There is no definite evidence of a pneumothorax. There isno definite evidence of focal consolidation or pleural effusion. The osseous structures are grossly stable. Impression: No acute cardiopulmonary disease. THIS IS AN ELECTRONICALLY VERIFIED FINAL REPORT 03/13/2020 12:37 AM - Electronically signed by Cristina Stringer D.O. PS: PS Report ID: [id number] Reading Location: [address] Ob Limited Result Date: 03/07/2020 Narrative: There are no Discrete Measurement Components for this test result - Please see .pdf ASSESSMENT/PLAN: 1. Diabetic ketoacidosis: Patient has been started on glucostabilizer. Will continue insulin drip till anion gap is closed. Will continue NPO, IV fluid, frequent BMP, symptomatic treatment for nausea. Recent hemoglobin A1c was 7.8. 2. Recurrent nausea and vomiting: Likely secondary to diabetic ketoacidosis along with delayed gastric emptying and possibly hyperemesis from use of marijuana. Patient has history of ulcerative esophagitis in January 2019. Continue Protonix. Will continue with management of diabetic ketoacidosis and if she has persistent symptoms, will obtain GI consultation. 3. Tachycardia: Patient appears to have sinus tachycardia. Will obtain EKG, IV Lopressor p.r.n.. Continue IV fluid. Recent echocardiogram on 11/2019 was unremarkable. 4. Current : Patient is around 6 weeks . Patient recently switched OB from Dr. Munoz to [place] [facility]. Patient to follow-up with Ob after discharge. 5. Depression/anxiety: Patient not on any medications currently. 6. DVT prophylaxis: Lovenox 7. GI prophylaxis: Protonix Full Code 8. ESTIMATED LENGTH OF STAY: To exceed 2 midnights since admission MDM: Moderate Principal Problem: Diabetic ketoacidosis without coma associated with type 1 diabetes mellitus (CMS/HCC) Active Problems: Depression Diabetic gastroparesis (CMS/HCC) Tachycardia T1DM in Intractable vomiting Voice recognition software OpenROV Direct was used dictate and transcribe this document. Supervisor Network Control Operators variances may occur. Despite proofreading, typographical errors may occur. Sangeeta Ding MD [facility] - Adult Hospitalist Service CC: Carrie Joseph PA D CAPTAIN documented in this encounter ED Notes * Dre Mancuso MD - 03/12/2020 8:33 PM CST HPI Chief Complaint Patient presents with ??? Hyperglycemia HPI 03/12/2020 8:35 PM Karina Menjivar is a 24 y.o. female nonsmoker, 6w1d and , with a h/o T1 DM and gastroparesis who presents to the ED with hyperglycemia since earlier today. Patient states that her blood sugar was 211 at home. She also reports nausea and vomiting. She states that her symptoms feel similar to past episodes of DKA. She reports taking insulin as prescribed. She denies abdominal pain, diarrhea, constipation, fever, chills, CP, and SOB. No other complaints at this time. Per chart review: Patient was hospitalized 11/25-12/01/19 for DKA and hyperkalemia. She refused to complete treatment and left AMA. 03/07/20 US: probable IUP, with gestational age 5w3d. Past Medical History: Diagnosis Date ??? Depression [...] Use Topics ??? Alcohol use: Not Currently Frequency: Monthly or less ??? Drug use: Not Currently Types: Marijuana Review of Systems Review of Systems Constitutional: Negative for chills and fever. HENT: Negative for ear pain and sore throat. Eyes: Negative for pain and visual disturbance. Respiratory: Negative for cough and shortness of breath. Cardiovascular: Negative for chest pain and palpitations. Gastrointestinal: Positive for nausea and vomiting. Negative for abdominal pain, constipation and diarrhea. Endocrine: Positive for hyperglycemia. Genitourinary: Negative for dysuria and hematuria. Musculoskeletal: Negative for arthralgias and back pain. Skin: Negative for color change and rash. Neurological: Negative for seizures and syncope. All other systems reviewed and are negative. Physical Exam ED Triage Vitals [03/12/201934] Temp Pulse Resp BP SpO2 36.1 ??C (97 ??F) (!) 135 18 148/96 99 % Temp src Heart Rate Source Patient Position BP Location FiO2 (%) Temporal -- -- -- -- Physical Exam Vitals signs and nursing note reviewed. Constitutional: Appearance: She is ill-appearing. HENT: Head: Normocephalic and atraumatic. Nose: Nose normal. Eyes: Extraocular Movements: Extraocular movements intact. Pupils: Pupils are equal, round, and reactive to light. Neck: Musculoskeletal: Normal range of motion. Cardiovascular: Rate and Rhythm: Normal rate and regular rhythm. Pulses: Normal pulses. Heart sounds: Normal heart sounds. Pulmonary: Effort: Pulmonary effort is normal. Breath sounds: Normal breath sounds. Abdominal: General: Abdomen is flat. Palpations: Abdomen is soft. Tenderness: There is no abdominal tenderness. Musculoskeletal: Normal range of motion. Skin: General: Skin is warm. Capillary Refill: Capillary refill takes less than 2 seconds. Neurological: General: No focal deficit present. Mental Status: She is alert and oriented to person, place, and time. Procedures Labs Reviewed CBC WITH AUTO DIFFERENTIAL - Abnormal Result Value WBC 13.3 (*) Hgb 15.1 Hct 44.8 Plt 466 (*) MPV 9.5 RBC 5.11 MCV 87.7 MCH 29.5 MCHC 33.7 RDW CV 12.9 RDW SD 41.4 NRBC abs 0.00 SEPSIS LACTATE WITH REFLEX - Abnormal Sepsis Lactate 2.6 (*) APTT - Abnormal aPTT 23 (*) BLOOD GAS, VENOUS - Abnormal pH, Venous 7.43 PCO2, Venous 29 (*) PO2, Venous 83 HCO3 Venous, Calculated 19 (*) BE, venous -4 DIFFERENTIAL AUTO - Abnormal Neutrophil abs 10.9 (*) Imm gran abs 0.1 Lymphocyte abs 1.6 Monocyte abs 0.7 Eosinophil abs 0.0 Basophil abs 0.0 Neutrophil pct 81.9 Imm gran pct 0.6 Lymphocyte pct 12.3 Monocyte pct 5.0 Eosinophil pct 0.0 Basophil pct 0.2 POCT GLUCOSE DEVICE - Abnormal Glucose, POC 196 (*) URINALYSIS AND REFLEX TO MICROSCOPIC AND CULTURE PROTIME-INR PT 13.0 INR 1.2 COMPREHENSIVE METABOLIC PANEL HCG, BLOOD, QUANTITATIVE SEPSIS LACTATE WITH REFLEX SEPSIS LACTATE WITH REFLEX No orders to display BP 149/87 Pulse 104 Temp 36.1 ??C (97 ??F) (Temporal) Resp 17 Ht 154.9 cm (5' 1 ) Wt 72.6kg (160 lb) LMP 01/03/2020 SpO2 100% BMI 30.23 kg/m?? MDM Intractable vomiting, presence of nausea not specified, unspecified vomiting type This note is prepared by Anitha Christensen, acting as a scribe for Dre Mancuso MD. I electronicallysigned this note at 8:52 PM on 03/12/2020. I, Dre Mancuso MD, have personally performed the services described in the documentation, reviewed the documentation, as recorded by the scribe in my presence, and it accurately and completely records my words and actions. Dre Mancuso MD 03/12/202052 D CAPTAIN * Angel Jolley RN - 03/12/2020 7:31 PM CST Ambulate to triage c/o I think im in dka states sugar at home was 211. States has had n/v denies diarrhea or constipation. State started feeling this way today. D CAPTAIN documented in this encounter Miscellaneous Notes * Plan of Care - Karen Martinez RN - 03/16/2020 1:45 PM CST Goals: Clinical Goals for the Shift: VSS, able to rest, no N/V, improved oral intake, and compliant with medications Summary: Patient decided to leave AMA states that she no longer wants to be here and understands that this is not advisable. Patient states that she does not want to recevie anymore care understands that Dr Romano feels she needs to stay. Signed paperwork and removed the patients IV. D CAPTAIN * Plan of Care - Kita Harp RN - 03/16/2020 5:09 AM CST Problem: Fluid Volume: Goal: Will maintain adequate fluid volume Outcome: Progressing Goal: Signs and symptoms of dehydration will decrease Outcome: Progressing Problem: Metabolic: Goal: Ability to maintain appropriate glucose levels will improve Outcome: Progressing Goal: Diagnostic test results will improve Outcome: Progressing Goal: Complications related to the disease process, condition or treatment will be avoided or minimized Outcome: Progressing Problem: Health Behavior: Goal: Understanding of discharge needs will improve Outcome: Not Progressing Problem: Lack of Knowledge: Goal: Ability to describe self-care measures that may prevent or decrease complications will improve Outcome: Not Progressing Goal: Knowledge of the prescribed therapeutic regimen will improve Description: Use of Medical Equipment and the [facility] Out[facility]: Not Progressing Goal: Ability to manage [...] adequate nutrition will improve Outcome: Not Progressing Goals: Clinical Goals for the Shift: stable BS, no N/V, increased appetite Summary: Patient is not eating or drinking and refuses most medications, except for insulin and IVF. She frequently dry heaves.Encourage pt to eat and drink as tolerated and wean off insulin drip when appropriate. D CAPTAIN * Plan of Care - Mann Cantu RN - 03/15/2020 2:46 PM CST Problem: Health Behavior: Goal: Understanding of discharge needs will improve Outcome: Not Progressing Goals: Clinical Goals for the Shift: Improve blood sugar. Stable labs and vital signs. Decrease nausea Summary: Blood sugar and vital signs stable. Remains on Glucostabilizer. Refuses to eat, drink, andtake some medications. Has had multiple episodes of nausea, vomiting today. Refuses Zofran. Took Reglan IV. D CAPTAIN * Plan of Sandhya - Lior Nicole RN - 03/15/2020 4:20 AM CST Problem: Health Behavior: Goal: Understanding [...] Equipment and the [facility] Out[facility]: Progressing Goal: Ability to manage health-related [...] Goals: Clinical Goals for the Shift: VSS. Improve nausea and vomitting. Encourage antiemetic use. Maintaincomfort and safety. Summary: Remains on insulin gtt per glucostabilizer. Frequent episodes of emesis. Patient refuses zofran despite encouragement. Labs this AM. D CAPTAIN * Plan of Care - Ida Hair RN - 03/14/2020 6:12 PM CST Problem: Activity: Goal: Ability to perform activities of daily living will improve Outcome: Progressing Problem: Cardiac: Goal: Ability to [...] Equipment and the Need for Diabetes Identification [facility] Outcome: Progressing Problem: Fluid Volume: Goal: Ability [...] injury in home environment Outcome: Progressing Problem: Health Behavior: Goal: Understanding of discharge needs will improve Outcome: Not Progressing Problem: Activity: Goal: Will verbalize the importance of balancing activity with adequate rest periods Outcome: Not Progressing Problem: Lack of Knowledge: Goal: Ability to manage health-related needs will improve Outcome: Not Progressing Goal: Ability to identify and alter actions that are detrimental to health will improve Outcome: Not Progressing Goal: Knowledge of prevention and discharge planning will improve Outcome: Not Progressing Problem: Nutritional: Goal: Maintenance of adequate nutrition will improve Outcome: Not Progressing Goals: Clinical Goals for the Shift: Vital signs stable, stabilize blood sugar off of insulin gtt., stop nausea and vomiting, incease dietary intake as tolerated, safety and comfort. Summary: Vital signs have remained stable. Blood sugar stabilized on glucose stabilizer, pt remainson insulin because pt cont to have N/V. Pt refused medication for nausea. Pt refuses to try clear liquids or any oral intake. Pt instructed repeatedly on need to take medications to treat nausea and tolerate oral intake to be able to get pt off insulin gtt and on her diabetic regimen without compliance. Pt up to toilet in room. Gait steady. Urine output adequate. D CAPTAIN * Plan of Care - Lior Nicole RN - 03/14/2020 5:04 AM CST Problem: Health Behavior: Goal: Understanding [...] Equipment and the Need for Diabetes Identification [facility] Outcome: Progressing Goal: Ability to [...] Goals: Clinical Goals for the Shift: VSS. Improve nausea and blood sugars. Summary: Patient continues to have nausea and vomiting despite improvement of labs. Zofran minimally effective at improving. Sinus tachycardia most of shift. Remains on insulin gtt. Repeat labs this AM. D CAPTAIN * Plan of Sandhya - Lucas Leos RN - 03/13/2020 7:54 AM CST Problem: Health Behavior: Goal: Understanding [...] Equipment and the Need for Diabetes Identification [facility] Outcome: Progressing Goal: Ability to [...] Progressing Goals: Clinical Goals for the Shift: Decrease blood sugars, tolerate PO intake Summary: Care plan initiated D CAPTAIN * ED Triage Provider Note - Kevin Bower PA - 03/12/2020 7:35 PM GUARD CAPTAIN Patient is a 24 year old female with a history of type 1 diabetes presents the ER with chief complaint of I think I am in DKA. Onset today. Patient reports several episodes of vomiting. Patient reports sugar was 211 at home. No exacerbating events. Patient reports she did not skip her insulin orillness. She also reports feeling dehydrated. Patient denies pain, diarrhea, constipation, chest pain, SOB, chills or fever. IKevin PA-C, have reviewed the student's note ([address]). D CAPTAIN documented in this encounter Plan of Treatment Not on file documented as of this encounter Procedures Procedure Name Priority Date/Time Associated Diagnosis Comments POCT GLUCOSE DEVICE Routine 03/16/2020 1 1:44 AM GUARD CAPTAIN POCT GLUCOSE DEVICE Routine 03/16/2020 1 0:40 AM GUARD CAPTAIN POCT GLUCOSE DEVICE Routine 03/16/2020 9 :30 AM GUARD CAPTAIN POCT GLUCOSE DEVICE Routine 03/16/2020 8 :26 AM GUARD CAPTAIN POCT GLUCOSE DEVICE Routine 03/16/2020 7 :27 AM GUARD CAPTAIN POCT GLUCOSE DEVICE Routine 03/16/2020 6 :20 AM GUARD CAPTAIN POCT GLUCOSE DEVICE Routine 03/16/2020 4 :55 AM GUARD CAPTAIN POCT GLUCOSE DEVICE Routine 03/16/2020 3 :32 AM GUARD CAPTAIN POTASSIUM LEVEL Routine 03/16/2020 3:24 AM GUARD CAPTAIN PHOSPHORUS Routine 03/16/2020 3:24 AM GUARD CAPTAIN MAGNESIUM Routine 03/16/2020 3:24 AM GUARD CAPTAIN POCT GLUCOSE DEVICE Routine 03/16/2020 2 :20 AM GUARD CAPTAIN POCT GLUCOSE DEVICE Routine 03/16/2020 1 2:57 AM GUARD CAPTAIN POCT GLUCOSE DEVICE Routine 03/16/2020 1 2:01 AM GUARD CAPTAIN POCT GLUCOSE DEVICE Routine 03/15/2020 1 1:02 PM GUARD CAPTAIN POCT GLUCOSE DEVICE Routine 03/15/2020 1 0:02 PM GUARD CAPTAIN POCT GLUCOSE DEVICE Routine 03/15/2020 8 :49 PM GUARD CAPTAIN POCT GLUCOSE DEVICE Routine 03/15/2020 7 :47 PM GUARD CAPTAIN POCT GLUCOSE DEVICE Routine 03/15/2020 6 :44 PM GUARD CAPTAIN POCT GLUCOSE DEVICE Routine 03/15/2020 5 :47 PM GUARD CAPTAIN POCT GLUCOSE DEVICE Routine 03/15/2020 4 :51 PM GUARD CAPTAIN POCT GLUCOSE DEVICE Routine 03/15/2020 3 :53 PM GUARD CAPTAIN POCT GLUCOSE DEVICE Routine 03/15/2020 2 :34 PM GUARD CAPTAIN POCT GLUCOSE DEVICE Routine 03/15/2020 1 :27 PM GUARD CAPTAIN POCT GLUCOSE DEVICE Routine 03/15/2020 1 2:33 PM GUARD CAPTAIN POCT GLUCOSE DEVICE Routine 03/15/2020 1 1:45 AM GUARD CAPTAIN POCT GLUCOSE DEVICE Routine 03/15/2020 1 0:16 AM GUARD CAPTAIN DIFFERENTIAL AUTO Routine 03/15/2020 9:2 4 AM GUARD CAPTAIN CBC WITH AUTO DIFFERENTIAL Routine 03/15/2020 9:24 AM GUARD CAPTAIN POCT GLUCOSE DEVICE Routine 03/15/2020 9 :05 AM GUARD CAPTAIN POCT GLUCOSE DEVICE Routine 03/15/2020 7 :57 AM GUARD CAPTAIN POCT GLUCOSE DEVICE Routine 03/15/2020 6 :31 AM GUARD CAPTAIN POCT GLUCOSE DEVICE Routine 03/15/2020 5 :08 AM GUARD CAPTAIN PHOSPHORUS Routine 03/15/2020 4:59 AM GUARD CAPTAIN MAGNESIUM Routine 03/15/2020 4:59 AM GUARD CAPTAIN EGFR Add On 03/15/2020 4:46 AM GUARD CAPTAIN BASIC METABOLIC PANEL Add-On 03/15/2020 4:46 AM GUARD CAPTAIN POCT GLUCOSE DEVICE Routine 03/15/2020 4 :01 AM GUARD CAPTAIN POCT GLUCOSE DEVICE Routine 03/15/2020 2 :51 AM GUARD CAPTAIN POCT GLUCOSE DEVICE Routine 03/15/2020 1 :40 AM GUARD CAPTAIN POCT GLUCOSE DEVICE Routine 03/15/2020 1 2:24 AM GUARD CAPTAIN POCT GLUCOSE DEVICE Routine 03/14/2020 1 1:15 PM GUARD CAPTAIN POCT GLUCOSE DEVICE Routine 03/14/2020 1 0:01 PM GUARD CAPTAIN POCT GLUCOSE DEVICE Routine 03/14/2020 8 :46 PM GUARD CAPTAIN POCT GLUCOSE DEVICE Routine 03/14/2020 7 :39 PM GUARD CAPTAIN POCT GLUCOSE DEVICE Routine 03/14/2020 6 :29 PM GUARD CAPTAIN POCT GLUCOSE DEVICE Routine 03/14/2020 5 :33 PM GUARD CAPTAIN POCT GLUCOSE DEVICE Routine 03/14/2020 4 :31 PM GUARD CAPTAIN POCT GLUCOSE DEVICE Routine 03/14/2020 3 :22 PM GUARD CAPTAIN POCT GLUCOSE DEVICE Routine 03/14/2020 2 :25 PM GUARD CAPTAIN POCT GLUCOSE DEVICE Routine 03/14/2020 1 :23 PM GUARD CAPTAIN POCT GLUCOSE DEVICE Routine 03/14/2020 1 :22 PM GUARD CAPTAIN POCT GLUCOSE DEVICE Routine 03/14/2020 1 1:16 AM GUARD CAPTAIN EGFR Routine 03/14/2020 9:07 AM GUARD CAPTAIN POCT GLUCOSE DEVICE Routine 03/14/2020 9 :07 AM GUARD CAPTAIN PHOSPHORUS Routine 03/14/2020 9:07 AM GUARD CAPTAIN MAGNESIUM Routine 03/14/2020 9:07 AM GUARD CAPTAIN COMPREHENSIVE METABOLIC PANEL Routine 03/14/2020 9:07 AM GUARD CAPTAIN POCT GLUCOSE DEVICE Routine 03/14/2020 6 :55 AM GUARD CAPTAIN CBC WITH AUTO DIFFERENTIAL Routine 03/14/2020 5:51 AM GUARD CAPTAIN MANUAL DIFFERENTIAL Routine 03/14/2020 5 :51 AM GUARD CAPTAIN POCT GLUCOSE DEVICE Routine 03/14/2020 4 :47 AM GUARD CAPTAIN POCT GLUCOSE DEVICE Routine 03/14/2020 2 :50 AM GUARD CAPTAIN POCT GLUCOSE DEVICE Routine 03/14/2020 1 2:35 AM GUARD CAPTAIN POCT GLUCOSE DEVICE Routine 03/13/2020 1 1:09 PM GUARD CAPTAIN POCT GLUCOSE DEVICE Routine 03/13/2020 9 :48 PM GUARD CAPTAIN EGFR Timed 03/13/2020 8:33 PM GUARD CAPTAIN PHOSPHORUS Timed 03/13/2020 8:33 PM GUARD CAPTAIN MAGNESIUM Timed 03/13/2020 8:33 PM GUARD CAPTAIN BASIC METABOLIC PANEL Timed 03/13/2020 8:33 PM GUARD CAPTAIN POCT GLUCOSE DEVICE Routine 03/13/2020 8 :32 PM GUARD CAPTAIN POCT GLUCOSE DEVICE Routine 03/13/2020 7 :26 PM GUARD CAPTAIN POCT GLUCOSE DEVICE Routine 03/13/2020 6 :12 PM GUARD CAPTAIN POCT GLUCOSE DEVICE Routine 03/13/2020 5 :04 PM GUARD CAPTAIN LACTATE Routine 03/13/2020 4:24 PM GUARD CAPTAIN EGFR Timed 03/13/2020 4:24 PM GUARD CAPTAIN PHOSPHORUS Timed 03/13/2020 4:24 PM GUARD CAPTAIN MAGNESIUM Timed 03/13/2020 4:24 PM GUARD CAPTAIN BASIC METABOLIC PANEL Timed 03/13/2020 4:24 PM GUARD CAPTAIN POCT GLUCOSE DEVICE Routine 03/13/2020 3 :58 PM GUARD CAPTAIN POCT GLUCOSE DEVICE Routine 03/13/2020 2 :50 PM GUARD CAPTAIN POCT GLUCOSE DEVICE Routine 03/13/2020 1 :13 PM GUARD CAPTAIN BETA-HYDROXYBUTYRATE Routine 03/13/2020 12:25 PM GUARD CAPTAIN EGFR STAT 03/13/2020 12:08 PM GUARD CAPTAIN PHOSPHORUS Timed 03/13/2020 12:08 PM GUARD CAPTAIN MAGNESIUM Timed 03/13/2020 12:08 PM GUARD CAPTAIN BASIC METABOLIC PANEL STAT 03/13/2020 12:08 PM GUARD CAPTAIN POCT GLUCOSE DEVICE Routine 03/13/2020 1 1:39 AM GUARD CAPTAIN POCT GLUCOSE DEVICE Routine 03/13/2020 1 0:36 AM GUARD CAPTAIN POCT GLUCOSE DEVICE Routine 03/13/2020 9 :16 AM GUARD CAPTAIN POCT GLUCOSE DEVICE Routine 03/13/2020 8 :11 AM GUARD CAPTAIN POCT GLUCOSE DEVICE Routine 03/13/2020 6 :48 AM GUARD CAPTAIN POCT GLUCOSE DEVICE Routine 03/13/2020 5 :43 AM GUARD CAPTAIN POCT GLUCOSE DEVICE Routine 03/13/2020 4 :42 AM GUARD CAPTAIN POCT GLUCOSE DEVICE Routine 03/13/2020 2 :46 AM GUARD CAPTAIN EGFR STAT 03/13/2020 2:13 AM GUARD CAPTAIN BASIC METABOLIC PANEL STAT 03/13/2020 2:13 AM GUARD CAPTAIN XR CHEST 1 VIEW ED 03/13/2020 12:17 AM GUARD CAPTAIN SEPSIS LACTATE WITH REFLEX Timed 03/12/2020 11:55 PM GUARD CAPTAIN POCT GLUCOSE DEVICE Routine 03/12/2020 1 1:02 PM GUARD CAPTAIN SEPSIS LACTATE WITH REFLEX Timed 03/12/2020 10:24 PM GUARD CAPTAIN URINALYSIS AND REFLEX TO MICROSCOPIC AND CULTURE STAT 03/12/2020 9:06 PM GUARD CAPTAIN SEPSIS LACTATE WITH REFLEX STAT 03/12/2020 8:08 PM GUARD CAPTAIN EGFR STAT 03/12/2020 8:08 PM GUARD CAPTAIN DIFFERENTIAL AUTO STAT 03/12/2020 8:0 8 PM GUARD CAPTAIN CBC WITH AUTO DIFFERENTIAL STAT 03/12/2020 8:08 PM GUARD CAPTAIN APTT STAT 03/12/2020 8:08 PM GUARD CAPTAIN PROTIME-INR STAT 03/12/2020 8:08 PM GUARD CAPTAIN HCG, BLOOD, QUANTITATIVE STAT 03/12/2020 8:08 PM GUARD CAPTAIN BLOOD GAS, VENOUS STAT 03/12/2020 8:0 8 PM GUARD CAPTAIN COMPREHENSIVE METABOLIC PANEL STAT 03/12/2020 8:08 PM GUARD CAPTAIN POCT GLUCOSE DEVICE Routine 03/12/2020 7 :34 PM GUARD CAPTAIN documented in this encounter Results * (ABNORMAL) POCT glucose (03/16/2020 11:44 AM GUARD CAPTAIN) Glucose, POC 115(H) 71 - 98 mg/dL TOMY SAHU ([place]) Blood specimen (specimen) 03/16/2020 11:44 AM GUARD CAPTAIN 03/16/2020 11:44 AM GUARD CAPTAIN Sanjuanita Enamorado MD LAB POCT ORDERABLES - DEVICE Final Result TOMY SAHU ([place]) 1 [facility] [place] [address] * (ABNORMAL) POCT glucose (03/16/2020 10:40 AM GUARD CAPTAIN) Glucose, POC 127(H) 71 - 98 mg/dL TOMY SAHU ([place]) Blood specimen (specimen) 03/16/2020 10:40 AM GUARD CAPTAIN 03/16/2020 10:40 AM GUARD CAPTAIN Sanjuanita Enamorado MD LAB POCT ORDERABLES - DEVICE Final Result TOMY LUIS ALBERTO ([place]) 1 [facility] [place] [address] * (ABNORMAL) POCT glucose (03/16/2020 9:30 AM GUARD CAPTAIN) Glucose, POC 114(H) 71 - 98 mg/dL [facility] ([place]) Blood specimen (specimen) 03/16/2020 9:30 AM GUARD CAPTAIN 03/16/2020 9:30 AM GUARD CAPTAIN Sanjuanita Enamorado MD LAB POCT ORDERABLES - DEVICE Final Result Performing Organization Address [facility] Co de Phone Number TOMY SAHU ([place]) 1 [facility] [place] [address] * (ABNORMAL) POCT glucose (03/16/2020 8:26 AM GUARD CAPTAIN) Glucose, POC 119(H) 71 - 98 mg/dL [facility] Blood specimen (specimen) 03/16/2020 8:26 AM GUARD CAPTAIN 03/16/2020 8:26 AM GUARD CAPTAIN Sanjuanita Enamorado MD LAB POCT ORDERABLES - DEVICE Final Result Performing Organization Address [facility] Co de Phone Number TOMY SAHU ([place]) 1 [facility] [place] [address] * (ABNORMAL) POCT glucose (03/16/2020 7:27 AM GUARD CAPTAIN) Glucose, POC 128(H) 71 - 98 mg/dL [facility] ([place] Blood specimen (specimen) 03/16/2020 7:27 AM GUARD CAPTAIN 03/16/2020 7:27 AM GUARD CAPTAIN Sanjuanita Enamorado MD LAB POCT ORDERABLES - DEVICE Final Result Performing Organization Address City/[facility] Co de Phone Number TOMY SAHU ([place]) 1 [facility] [employer] [address] * (ABNORMAL) POCT glucose (03/16/2020 6:20 AM GUARD CAPTAIN) Glucose, POC 121(H) 71 - 98 mg/dL [facility] ([place]) Blood specimen (specimen) 03/16/2020 6:20 AM GUARD CAPTAIN 03/16/2020 6:20 AM GUARD CAPTAIN Sanjuanita Enamorado MD LAB POCT ORDERABLES - DEVICE Final Result Performing Organization Address [facility]/ZIP Co de Phone Number TOMY SAHU ([place]) 1 [facility] [place] [address] * (ABNORMAL) POCT glucose (03/16/2020 4:55 AM GUARD CAPTAIN) Glucose, POC 145(H) 71 - 98 mg/dL TOMY SAHU ([place]) Blood specimen (specimen) 03/16/2020 4:55 AM GUARD CAPTAIN 03/16/2020 4:55 AM GUARD CAPTAIN us Sanjuanita Enamorado MD LAB POCT ORDERABLES - DEVICE Final Result Performing Organization Address [facility] Co de Phone Number TOMY SAHU ([place]) 1 [facility] [place] [address] * (ABNORMAL) POCT glucose (03/16/2020 3:32 AM GUARD CAPTAIN) Glucose, POC 106(H) 71 - 98 mg/dL OTMY SAHU ([place]) Blood specimen (specimen) 03/16/2020 3:32 AM GUARD CAPTAIN 03/16/2020 3:32 AM GUARD CAPTAIN us Sanjuanita Enamorado MD LAB POCT ORDERABLES - DEVICE Final Result Performing Organization Address [facility] Co de Phone Number TOMY SAHU ([place]) 1 [facility] [place] [address] * Magnesium (03/16/2020 3:24 AM GUARD CAPTAIN) Magnesium 1.8 1.4 - 2.5 mg/dL TOMY SAHU ([place]) Blood specimen (specimen) 03/16/2020 3:24 AM GUARD CAPTAIN 03/16/2020 4:05 AM GUARD CAPTAIN us Sangeeta Ding MD LAB BLOOD ORDERABLES Final Resul t Performing Organization Address [facility] Co de Phone Number TOMY SAHU ([place]) 1 [facility] [place] [employer] [address] * (ABNORMAL) Potassium (03/16/2020 3:24 AM GUARD CAPTAIN) Potassium, pl 2.8(C) 3.3 - 4.9 mmol/L TOMY SAHU ([place]) Comment:Critical Result call ed to and read back by Kita Salas (ICU), DATE: 2020-03-16 05:46:21 BY: Molly Ballard Blood specimen (specimen) 03/16/2020 3:24 AM GUARD CAPTAIN 03/16/2020 4:05 AM GUARD CAPTAIN us Sangeeta Ding MD LAB BLOOD ORDERABLES Final Resul t Performing Organization Address [facility] Co de Phone Number TOMY SAHU ([place]) 1 [facility] [place] [employer] [address] * (ABNORMAL) Phosphorus (03/16/2020 3:24 AM GUARD CAPTAIN) Phosphorus, pl 1.9(L) 2.3 - 4.5 mg/dL ASHLEYTOSHA SAHU ([place]) Blood specimen (specimen) 03/16/2020 3:24 AM GUARD CAPTAIN 03/16/2020 4:05 AM GUARD CAPTAIN us Sangeeta Ding MD LAB BLOOD ORDERABLES Final Resul t Performing Organization Address [facility] Co de Phone Number TOMY SAUH ([place]) 1 [facility] [place] [employer] [address] * (ABNORMAL) POCT glucose (03/16/2020 2:20 AM GUARD CAPTAIN) Glucose, POC 156(H) 71 - 98 mg/dL TOMY SAHU ([place]) Blood specimen (specimen) 03/16/2020 2:20 AM GUARD CAPTAIN 03/16/2020 2:20 AM GUARD CAPTAIN Sanjuanita Enamorado MD LAB POCT ORDERABLES - DEVICE Final Result TOMY SAHU ([place]) 1 [facility] [place] [address] * (ABNORMAL) POCT glucose (03/16/2020 12:57 AM GUARD CAPTAIN) Glucose, POC 148(H) 71 - 98 mg/dL TOMY SAHU ([place]) Blood specimen (specimen) 03/16/2020 12:57 AM GUARD CAPTAIN 03/16/2020 12:57 AM GUARD CAPTAIN Sanjuanita Enamorado MD LAB POCT ORDERABLES - DEVICE Final Result TOMY SAHU ([place]) 1 [facility] [place] [address] * (ABNORMAL) POCT glucose (03/16/2020 12:01 AM GUARD CAPTAIN) Glucose, POC 107(H) 71 - 98 mg/dL TOMY SAHU ([place]) Blood specimen (specimen) 03/16/2020 12:01 AM GUARD CAPTAIN 03/16/2020 12:01 AM GUARD CAPTAIN us Sanjuanita Enamorado MD LAB POCT ORDERABLES - DEVICE Final Result Performing Organization Address City/[facility]/ZIP Co de Phone Number TOMY SAHU ([place]) 1 [facility] [place] [address] * POCT glucose (03/15/2020 11:02 PM GUARD CAPTAIN) Glucose, POC 96 71 - 98 mg/dL TOMY SAHU ([place]) Blood specimen (specimen) 03/15/2020 11:02 PM GUARD CAPTAIN 03/15/2020 11:02 PM GUARD CAPTAIN us Sanjuanita Enamorado MD LAB POCT ORDERABLES - DEVICE Final Result TOMY SAHU ([place]) 1 [facility] [employer] [address] * (ABNORMAL) POCT glucose (03/15/2020 10:02 PM GUARD CAPTAIN) Glucose, POC 124(H) 71 - 98 mg/dL TOMY SAHU ([place]) Blood specimen (specimen) 03/15/2020 10:02 PM GUARD CAPTAIN 03/15/2020 10:02 PM GUARD CAPTAIN Sanjuanita Enamorado MD LAB POCT ORDERABLES - DEVICE Final Result TOMY SAHU ([place]) 1 [facility] [employer] [address] * (ABNORMAL) POCT glucose (03/15/2020 8:49 PM GUARD CAPTAIN) Glucose, POC 127(H) 71 - 98 mg/dL TOMY SAHU ([place]) Blood specimen (specimen) 03/15/2020 8:49 PM GUARD CAPTAIN 03/15/2020 8:49 PM GUARD CAPTAIN us Sanjuanita Enamorado MD LAB POCT ORDERABLES - DEVICE Final Result Performing Organization Address City/[facility]/ZIP Co de Phone Number TOMY SAHU ([place]) 1 [facility] [employer] [address] * (ABNORMAL) POCT glucose (03/15/2020 7:47 PM GUARD CAPTAIN) Glucose, POC 123(H) 71 - 98 mg/dL TOMY [facility] ([place]) Blood specimen (specimen) 03/15/2020 7:47 PM GUARD CAPTAIN 03/15/2020 7:47 PM GUARD CAPTAIN Sanjuanita Enamorado MD LAB POCT ORDERABLES - DEVICE Final Result Performing Organization Address City/[facility]/ZIP Co de Phone Number TOMY SAHU ([place]) 1 [facility] [employer] [place] [address] * (ABNORMAL) POCT glucose (03/15/2020 6:44 PM GUARD CAPTAIN) Glucose, POC 127(H) 71 - 98 mg/dL [facility] ([place]) Blood specimen (specimen) 03/15/2020 6:44 PM GUARD CAPTAIN 03/15/2020 6:44 PM GUARD CAPTAIN Sanjuanita Enamorado MD LAB POCT ORDERABLES - DEVICE Final Result Performing Organization Address City/[facility]/ZIP Co de Phone Number TOMY SAHU ([place]) 1 [facility] [employer] [address] * (ABNORMAL) POCT glucose (03/15/2020 5:47 PM GUARD CAPTAIN) Glucose, POC 118(H) 71 - 98 mg/dL [facility] ([place]) Blood specimen (specimen) 03/15/2020 5:47 PM GUARD CAPTAIN 03/15/2020 5:47 PM GUARD CAPTAIN Sanjuanita Enamorado MD LAB POCT ORDERABLES - DEVICE Final Result Performing Organization Address [facility] Co de Phone Number TOMY SAHU ([place]) 1 [facility] [place] [address] * (ABNORMAL) POCT glucose (03/15/2020 4:51 PM GUARD CAPTAIN) Glucose, POC 123(H) 71 - 98 mg/dL [facility] ([place]) Blood specimen (specimen) 03/15/2020 4:51 PM GUARD CAPTAIN 03/15/2020 4:51 PM GUARD CAPTAIN Sanjuanita Enamorado MD LAB POCT ORDERABLES - DEVICE Final Result Performing Organization Address City/[facility]/ZIP Co de Phone Number TOMY SAHU ([place]) 1 [facility] [place] [address] * (ABNORMAL) POCT glucose (03/15/2020 3:53 PM GUARD CAPTAIN) Glucose, POC 183(H) 71 - 98 mg/dL TOMY SAHU ([place]) Blood specimen (specimen) 03/15/2020 3:53 PM GUARD CAPTAIN 03/15/2020 3:53 PM GUARD CAPTAIN Sanjuanita Enamorado MD LAB POCT ORDERABLES - DEVICE Final Result Performing Organization Address City/[facility]/ZIP Co de Phone Number TOMY SAHU ([place]) 1 [facility] [place] [address] * (ABNORMAL) POCT glucose (03/15/2020 2:34 PM GUARD CAPTAIN) Glucose, POC 103(H) 71 - 98 mg/dL [facility] ([place] Blood specimen (specimen) 03/15/2020 2:34 PM GUARD CAPTAIN 03/15/2020 2:34 PM GUARD CAPTAIN Sanjuanita Enamorado MD LAB POCT ORDERABLES - DEVICE Final Result Performing Organization Address [facility] Co de Phone Number TOMY SAHU ([place]) 1 [facility] [place] [address] * (ABNORMAL) POCT glucose (03/15/2020 1:27 PM GUARD CAPTAIN) Glucose, POC 105(H) 71 - 98 mg/dL TOMY [facility] ([place]) Blood specimen (specimen) 03/15/2020 1:27 PM GUARD CAPTAIN 03/15/2020 1:27 PM GUARD CAPTAIN Sanjuanita Enamorado MD LAB POCT ORDERABLES - DEVICE Final Result Performing Organization Address City/[facility] Co de Phone Number TOMY SAHU ([place]) 1 [facility] [place] [address] * (ABNORMAL) POCT glucose (03/15/2020 12:33 PM GUARD CAPTAIN) Glucose, POC 157(H) 71 - 98 mg/dL [facility] ([place]) Blood specimen (specimen) 03/15/2020 12:33 PM GUARD CAPTAIN 03/15/2020 12:33 PM GUARD CAPTAIN Sanjuanita Enamorado MD LAB POCT ORDERABLES - DEVICE Final Result TOMY SAHU ([place]) 1 [facility] [place] [address] * (ABNORMAL) POCT glucose (03/15/2020 11:45 AM GUARD CAPTAIN) Glucose, POC 123(H) 71 - 98 mg/dL [facility] ([place]) Blood specimen (specimen) 03/15/2020 11:45 AM GUARD CAPTAIN 03/15/2020 11:45 AM GUARD CAPTAIN Sanjuanita Enamorado MD LAB POCT ORDERABLES - DEVICE Final Result TOMY SAHU ([place]) 1 [facility] [place] [address] * (ABNORMAL) POCT glucose (03/15/2020 10:16 AM GUARD CAPTAIN) Glucose, POC 115(H) 71 - 98 mg/dL [facility] ([place]) Blood specimen (specimen) 03/15/2020 10:16 AM GUARD CAPTAIN 03/15/2020 10:16 AM GUARD CAPTAIN Sanjuanita Enamorado MD LAB POCT ORDERABLES - DEVICE Final Result TOMY SAHU ([place]) 1 [facility] [place] [address] * (ABNORMAL) Differential, auto (03/15/2020 9:24 AM GUARD CAPTAIN) Neutrophil abs 10.9(H) 1.7 - 6.5 K/cumm [facility] ([place]) Imm gran abs 0.1 0.0 - 0.1 K/cumm [facility] ([place]) Lymphocyte abs 2.6 0.8 - 3.3 K/cumm [facility] ([place]) Monocyte abs 2.1(H) 0.2 - 0.8 K/cumm [facility] ([place]) Eosinophil abs 0.0 0.0 - 0.5 K/cumm [facility] ([place]) Basophil abs 0.0 0.0 - 0.1 K/cumm [facility] ([place]) Neutrophil pct 68.9 % [facility] ([place]) Comment: Interpretive [...] was last revised on 2017. Lymphocyte pct 16.7 % [facility] ([place]) Comment: Interpretive Data Percent cell count reference ranges are not reported, since discordance with absolute values may lead to misinterpretation of CBC data. Current Interpretive Data was last revised on 2017. Monocyte pct 13.4 % [facility] ([place]) Comment: Interpretive Data [...] last revised on 2017. Blood specimen (specimen) 03/15/2020 9:24 AM GUARD CAPTAIN 03/15/2020 9:27 AM GUARD CAPTAIN us Sanjuanita Enamorado MD LAB BLOOD ORDERABLES Final Re sult TOMY SAHU ([place]) 1 [facility] [place] [address] * (ABNORMAL) CBC with auto differential (03/15/2020 9:24 AM GUARD CAPTAIN) WBC 15.8(H) 3.8 - 9.9 K/cumm [facility] ([place]) Hgb 14.9 11.9 - 15.5 g/dL [facility] ([place]) Hct 42.6 35.6 - 45.5 % [facility] ([place]) Plt 442(H) 150 - 400 K/cumm [facility] ([place]) MPV 8.6(L) 9.1 - 12.3 fL [facility] ([place]) RBC 4.92 3.90 - 5.20 M/cumm [facility] ([place]) MCV 86.6 81.3 - 96.4 fL [facility] ([place]) MCH 30.3 27.1 - 33.3 pg [facility] ([place]) MCHC 35.0 32.3 - 35.7 g/dL [facility] ([place]) RDW CV 12.5 11.1 - 14.9 % [facility] ([place]) RDW SD 39.4 35.7 - 48.1 fL [facility] ([place]) NRBC abs 0.00 0.00 - 0.01 K/cumm [facility] ([place]) Blood specimen (specimen) 03/15/2020 9:24 AM GUARD CAPTAIN 03/15/2020 9:27 AM GUARD CAPTAIN us Sanjuanita Enamorado MD LAB BLOOD ORDERABLES Final Re sult TOMY SAHU ([place]) 1 [facility] [place] [address] * (ABNORMAL) POCT glucose (03/15/2020 9:05 AM GUARD CAPTAIN) Glucose, POC 108(H) 71 - 98 mg/dL [facility] ([place]) Blood specimen (specimen) 03/15/2020 9:05 AM GUARD CAPTAIN 03/15/2020 9:05 AM GUARD CAPTAIN us Sanjuanita Enamorado MD LAB POCT ORDERABLES - DEVICE Final Result TOMY SAHU ([place]) 1 [facility] [place] [address] * (ABNORMAL) POCT glucose (03/15/2020 7:57 AM GUARD CAPTAIN) Glucose, POC 151(H) 71 - 98 mg/dL TOMY SAHU ([place]) Blood specimen (specimen) 03/15/2020 7:57 AM GUARD CAPTAIN 03/15/2020 7:57 AM GUARD CAPTAIN Sanjuanita Enamorado MD LAB POCT ORDERABLES - DEVICE Final Result TOMY SAHU ([place]) 1 [facility] [place] [address] * (ABNORMAL) POCT glucose (03/15/2020 6:31 AM GUARD CAPTAIN) Glucose, POC 131(H) 71 - 98 mg/dL TOMY SAHU ([place]) Blood specimen (specimen) 03/15/2020 6:31 AM GUARD CAPTAIN 03/15/2020 6:31 AM GUARD CAPTAIN Sanjuanita Enamorado MD LAB POCT ORDERABLES - DEVICE Final Result Performing Organization Address City/[facility]/ZIP Co de Phone Number TOMY SAHU ([place]) 1 [facility] [place] [address] * (ABNORMAL) POCT glucose (03/15/2020 5:08 AM GUARD CAPTAIN) Glucose, POC 114(H) 71 - 98 mg/dL TOMY SAHU ([place]) Blood specimen (specimen) 03/15/2020 5:08 AM GUARD CAPTAIN 03/15/2020 5:08 AM GUARD CAPTAIN Sanjuanita Enamorado MD LAB POCT ORDERABLES - DEVICE Final Result TOMY SAHU ([place]) 1 [facility] [place] [address] * Magnesium (03/15/2020 4:59 AM GUARD CAPTAIN) Magnesium 1.8 1.4 - 2.5 mg/dL [facility] ([place]) Blood specimen (specimen) 03/15/2020 4:59 AM GUARD CAPTAIN 03/15/2020 5:28 AM GUARD CAPTAIN Sangeeta Ding MD LAB BLOOD ORDERABLES Edited Resu lt - Final TOMY [facility] ([place]) 1 [facility] [place] [address] * Phosphorus (03/15/2020 4:59 AM GUARD CAPTAIN) Phosphorus, pl 2.8 2.3 - 4.5 mg/dL [facility] ([place]) Blood specimen (specimen) 03/15/2020 4:59 AM GUARD CAPTAIN 03/15/2020 5:28 AM GUARD CAPTAIN Sangeeta Ding MD LAB BLOOD ORDERABLES Edited [facility] Final Performing Organization Address [facility] Co de Phone Number [facility] ([place]) 1 [facility] [place] [address] * eGFR (03/15/2020 4:46 AM GUARD CAPTAIN) eGFR 169 mL/min/1.7 3 m2 [facility] ([place]) Comment: Interpretive Data Reference Interval Normal ?>/= 90 mL/min/1.73m2 Mildly decreased* ? 60 - 89 mL/min/1.73m2 Mildly to moderately decreased ?45 - 59 mL/min/1.73m2 Moderately to severely decreased ??30 - 44 mL/min/1.73m2 Severely decreased ?15 - 29 mL/min/1.73m2 Kidney Failure ?< 15 ??mL/min/1.73m2 *Relative to young adult level If -British multiply value by 1.16. Estimated glomerular filtration rate is determined by [...] 70. Current interpretive data was last reviewed 2015. Blood specimen (specimen) 03/15/2020 4:46 AM GUARD CAPTAIN 03/15/2020 6:44 AM GUARD CAPTAIN us Sanjuanita Enamorado MD LAB BLOOD ORDERABLES Final Re sult [facility] ([place]) 1 [facility] [place] [address] * (ABNORMAL) Basic metabolic panel (03/15/2020 4:46 AM GUARD CAPTAIN) Sodium 131(L) 135 - 145 mmol/L [facility] ([place]) Potassium, pl 3.8 3.3 - 4.9 mmol/L [facility] ([place]) Comment:Moderately Hemolyzed Specimen. Hemolysis present. Results may be affected. Chloride 100 97 - 110 mmol/L [facility] ([place]) CO2 16(L) 22 - 32 mmol/L [facility] ([place]) Anion gap 15 2 - 15 mmol/L [facility] ([place]) BUN <3(L) 8 - 25 mg/dL [facility] ([place]) Creatinine 0.26(L) 0.60 - 1.10 mg/dL [facility] ([place]) Glucose 122 70 - 199 mg/dL [facility] ([place]) [...] 8.8 8.5 - 10.3 mg/dL TOMY SAHU ([place]) Blood specimen (specimen) 03/15/2020 4:46 AM GUARD CAPTAIN 03/15/2020 6:44 AM GUARD CAPTAIN Narrative CERTOSHA SAHU ([place]) - 03/15/2020 6:55 AM GUARD CAPTAIN Use blood from AM draw Sanjuanita Enamorado MD LAB BLOOD ORDERABLES Final Re sult Performing Organization Address City/[facility]/ZIP Co de Phone Number TOMY SAHU ([place]) 1 [facility] [place] [address] * (ABNORMAL) POCT glucose (03/15/2020 4:01 AM GUARD CAPTAIN) Glucose, POC 125(H) 71 - 98 mg/dL TOMY SAHU ([place]) Blood specimen (specimen) 03/15/2020 4:01 AM GUARD CAPTAIN 03/15/2020 4:01 AM GUARD CAPTAIN Sanjuanita Enamorado MD LAB POCT ORDERABLES - DEVICE Final Result Performing Organization Address [facility]/ZIP Co de Phone Number TOMY SAHU ([place]) 1 [facility] [place] [address] * (ABNORMAL) POCT glucose (03/15/2020 2:51 AM GUARD CAPTAIN) Glucose, POC 141(H) 71 - 98 mg/dL TOMY [facility] ([place]) Blood specimen (specimen) 03/15/2020 2:51 AM GUARD CAPTAIN 03/15/2020 2:51 AM GUARD CAPTAIN Sanjuanita Enamorado MD LAB POCT ORDERABLES - DEVICE Final Result Performing Organization Address City/[facility]/ZIP Co de Phone Number TOMY SAHU ([place]) 1 [facility] [place] [address] * POCT glucose (03/15/2020 1:40 AM GUARD CAPTAIN) Glucose, POC 93 71 - 98 mg/dL TOMY SAHU ([place]) Blood specimen (specimen) 03/15/2020 1:40 AM GUARD CAPTAIN 03/15/2020 1:40 AM GUARD CAPTAIN Sanjuanita Enamorado MD LAB POCT ORDERABLES - DEVICE Final Result TOMY SAHU ([place]) 1 [facility] [place] [address] * (ABNORMAL) POCT glucose (03/15/2020 12:24 AM GUARD CAPTAIN) Glucose, POC 115(H) 71 - 98 mg/dL TOMY SAHU ([place]) Blood specimen (specimen) 03/15/2020 12:24 AM GUARD CAPTAIN 03/15/2020 12:24 AM GUARD CAPTAIN us Sanjuanita Enamorado MD LAB POCT ORDERABLES - DEVICE Final Result Performing Organization Address City/[facility]/ZIP Co de Phone Number TOMY SAHU ([place]) 1 [facility] [place] [address] * (ABNORMAL) POCT glucose (03/14/2020 11:15 PM GUARD CAPTAIN) Glucose, POC 142(H) 71 - 98 mg/dL TOMY SAHU ([place]) Blood specimen (specimen) 03/14/2020 11:15 PM GUARD CAPTAIN 03/14/2020 11:15 PM GUARD CAPTAIN Sanjuanita Enamorado MD LAB POCT ORDERABLES - DEVICE Final Result Performing Organization Address City/[facility]/ZIP Co de Phone Number TOMY SAHU ([place]) 1 [facility] [place] [address] * (ABNORMAL) POCT glucose (03/14/2020 10:01 PM GUARD CAPTAIN) Glucose, POC 117(H) 71 - 98 mg/dL [facility] ([place]) Blood specimen (specimen) 03/14/2020 10:01 PM GUARD CAPTAIN 03/14/2020 10:01 PM GUARD CAPTAIN Sanjuanita Enamorado MD LAB POCT ORDERABLES - DEVICE Final Result TOMY SAHU ([place]) 1 [facility] [place] [address] * (ABNORMAL) POCT glucose (03/14/2020 8:46 PM GUARD CAPTAIN) Glucose, POC 140(H) 71 - 98 mg/dL TOMY [facility] ([place]) Blood specimen (specimen) 03/14/2020 8:46 PM GUARD CAPTAIN 03/14/2020 8:46 PM GUARD CAPTAIN Sanjuanita Enamorado MD LAB POCT ORDERABLES - DEVICE Final Result Performing Organization Address City/[facility]/ZIP Co de Phone Number TOMY SAHU ([place]) 1 [facility] [place] [address] * (ABNORMAL) POCT glucose (03/14/2020 7:39 PM GUARD CAPTAIN) Glucose, POC 113(H) 71 - 98 mg/dL TOMY SAHU ([place]) Blood specimen (specimen) 03/14/2020 7:39 PM GUARD CAPTAIN 03/14/2020 7:39 PM GUARD CAPTAIN Sanjuanita Enamorado MD LAB POCT ORDERABLES - DEVICE Final Result TOMY SAHU ([place]) 1 [facility] [place] [address] * (ABNORMAL) POCT glucose (03/14/2020 6:29 PM GUARD CAPTAIN) Glucose, POC 103(H) 71 - 98 mg/dL TOMY SAHU ([place]) Blood specimen (specimen) 03/14/2020 6:29 PM GUARD CAPTAIN 03/14/2020 6:29 PM GUARD CAPTAIN Sanjuanita Enamorado MD LAB POCT ORDERABLES - DEVICE Final Result Performing Organization Address [facility]/ZIP Co de Phone Number TOMY SAHU ([place]) 1 [facility] [place] [address] * (ABNORMAL) POCT glucose (03/14/2020 5:33 PM GUARD CAPTAIN) Glucose, POC 121(H) 71 - 98 mg/dL [facility] Blood specimen (specimen) 03/14/2020 5:33 PM GUARD CAPTAIN 03/14/2020 5:33 PM GUARD CAPTAIN us Sanjuanita Enamorado MD LAB POCT ORDERABLES - DEVICE Final Result Performing Organization Address [facility] Co de Phone Number TOMY SAHU ([place]) 1 [facility] [place] [address] * (ABNORMAL) POCT glucose (03/14/2020 4:31 PM GUARD CAPTAIN) Glucose, POC 142(H) 71 - 98 mg/dL [facility] ([place]) Blood specimen (specimen) 03/14/2020 4:31 PM GUARD CAPTAIN 03/14/2020 4:31 PM GUARD CAPTAIN Sanjuanita Enamorado MD LAB POCT ORDERABLES - DEVICE Final Result Performing Organization Address City/[facility] Co de Phone Number TOMY SAHU ([place]) 1 [facility] [place] [address] * (ABNORMAL) POCT glucose (03/14/2020 3:22 PM GUARD CAPTAIN) Glucose, POC 138(H) 71 - 98 mg/dL [facility] Blood specimen (specimen) 03/14/2020 3:22 PM GUARD CAPTAIN 03/14/2020 3:22 PM GUARD CAPTAIN Sanjuanita Enamorado MD LAB POCT ORDERABLES - DEVICE Final Result TOMY SAHU ([place]) 1 [facility] [place] [address] * (ABNORMAL) POCT glucose (03/14/2020 2:25 PM GUARD CAPTAIN) Glucose, POC 134(H) 71 - 98 mg/dL TOMY SAHU ([place]) Blood specimen (specimen) 03/14/2020 2:25 PM GUARD CAPTAIN 03/14/2020 2:25 PM GUARD CAPTAIN us Sanjuanita Enamorado MD LAB POCT ORDERABLES - DEVICE Final Result Performing Organization Address City/[facility]/ZIP Co de Phone Number TOMY SAHU ([place]) 1 [facility] [place] [address] * POCT glucose (03/14/2020 1:23 PM GUARD CAPTAIN) Glucose, POC 85 71 - 98 mg/dL TOMY SAHU ([place]) Blood specimen (specimen) 03/14/2020 1:23 PM GUARD CAPTAIN 03/14/2020 1:23 PM GUARD CAPTAIN us Sanjuanita Enamorado MD LAB POCT ORDERABLES - DEVICE Final Result Performing Organization Address City/[facility]/ZIP Co de Phone Number TOMY SAHU ([place]) 1 [facility] [place] [address] * POCT glucose (03/14/2020 1:22 PM GUARD CAPTAIN) Glucose, POC 85 71 - 98 mg/dL TOMY SAHU ([place]) Blood specimen (specimen) 03/14/2020 1:22 PM GUARD CAPTAIN 03/14/2020 1:22 PM GUARD CAPTAIN Sanjuanita Enamroado MD LAB POCT ORDERABLES - DEVICE Final Result TOMY SAHU ([place]) 1 [facility] [place] [address] * (ABNORMAL) POCT glucose (03/14/2020 11:16 AM GUARD CAPTAIN) Glucose, POC 136(H) 71 - 98 mg/dL [facility] ([place]) Blood specimen (specimen) 03/14/2020 11:16 AM GUARD CAPTAIN 03/14/2020 11:16 AM GUARD CAPTAIN Sanjuanita Enamorado MD LAB POCT ORDERABLES - DEVICE Final Result TOMY [facility]ERT[facility] ([place]) 1 [facility] [place] [address] * eGFR (03/14/2020 9:07 AM GUARD CAPTAIN) eGFR 167 mL/min/1.7 3 m2 ASHLEYTOSHA SAHU ([place]) Comment: Interpretive Data Reference Interval Normal ?>/= 90 mL/min/1.73m2 Mildly decreased* ? 60 - 89 mL/min/1.73m2 Mildly to moderately decreased ?45 - 59 mL/min/1.73m2 Moderately to severely decreased ??30 - 44 mL/min/1.73m2 Severely decreased ?15 - 29 mL/min/1.73m2 Kidney Failure ?< 15 ??mL/min/1.73m2 *Relative to young adult level If -British multiply value by 1.16. Estimated glomerular filtration rate is determined by [...] 70. Current interpretive data was last reviewed 2015. Blood specimen (specimen) 03/14/2020 9:07 AM GUARD CAPTAIN 03/14/2020 9:10 AM GUARD CAPTAIN us Sanjuanita Enamorado MD LAB BLOOD ORDERABLES Final Re sult TOMY SAHU ([place]) 1 [facility] [place] [address] * (ABNORMAL) POCT glucose (03/14/2020 9:07 AM GUARD CAPTAIN) Glucose, POC 125(H) 71 - 98 mg/dL TOMY SAHU ([place]) Blood specimen (specimen) 03/14/2020 9:07 AM GUARD CAPTAIN 03/14/2020 9:07 AM GUARD CAPTAIN us Sanjuanita Enamorado MD LAB POCT ORDERABLES - DEVICE Final Result Performing Organization Address [facility]/ZIP Co de Phone Number TOMY SAHU ([place]) 1 [facility] [place] [address] * Magnesium (03/14/2020 9:07 AM GUARD CAPTAIN) Magnesium 1.7 1.4 - 2.5 mg/dL TOMY SAHU ([place]) Blood specimen (specimen) 03/14/2020 9:07 AM GUARD CAPTAIN 03/14/2020 9:10 AM GUARD CAPTAIN us Sanjuanita Enamorado MD LAB BLOOD ORDERABLES Final Re sult TOMY SAHU ([place]) 1 [facility] [place] [address] * Phosphorus (03/14/2020 9:07 AM GUARD CAPTAIN) Phosphorus, pl 2.3 2.3 - 4.5 mg/dL [facility]OM[facility] ([place]) Blood specimen (specimen) 03/14/2020 9:07 AM GUARD CAPTAIN 03/14/2020 9:10 AM GUARD CAPTAIN us Sanjuanita Enamorado MD LAB BLOOD ORDERABLES Final Re sult TOMY [facility] ([place]) 1 [facility] [place] [address] * (ABNORMAL) Comprehensive metabolic panel (03/14/2020 9:07 AM GUARD CAPTAIN) Sodium 132(L) 135 - 145 mmol/L [facility] ([place]) Potassium, pl 3.4 3.3 - 4.9 mmol/L [facility] ([place]) Chloride 101 97 - 110 mmol/L [facility] ([place]) CO2 19(L) 22 - 32 mmol/L [facility] ([place]) Anion gap 11 2 - 15 mmol/L [facility] ([place]) BUN 6(L) 8 - 25 mg/dL [facility] ([place]) Creatinine 0.27(L) 0.60 - 1.10 mg/dL [facility] [...] 1.2 mg/dL [facility] ([place]) Protein, pl 6.3(L) 6.5 - 8.5 g/dL [facility] ([place]) Albumin 4.0 3.5 - 5.0 g/dL [facility] ([place]) Alk phos 78 40 - 130 Units/L [facility] ([place]) ALT 8 7 - 45 Units/L [facility] ([place]) AST 16 10 - 45 Units/L [facility] ([place]) Comment:Slightly Hemolyzed S pecimen Blood specimen (specimen) 03/14/2020 9:07 AM GUARD CAPTAIN 03/14/2020 9:10 AM GUARD CAPTAIN Sanjuanita Enamorado MD LAB BLOOD ORDERABLES Final Re sult [facility] ([place]) [address] [place] [address] * (ABNORMAL) POCT glucose (03/14/2020 6:55 AM GUARD CAPTAIN) Glucose, POC 112(H) 71 - 98 mg/dL [facility] ([place]) Blood specimen (specimen) 03/14/2020 6:55 AM GUARD CAPTAIN 03/14/2020 6:55 AM GUARD CAPTAIN Sanjuanita Enamorado MD LAB POCT ORDERABLES - DEVICE Final Result Performing Organization Address City/[facility] Co de Phone Number TOMY SAHU ([place]) 1 [facility] [place] [address] * Manual Differential (03/14/2020 5:51 AM GUARD CAPTAIN) Differential see comment TOMY SAHU ([place]) Comment: DISREGARD RESULTS Patient hard stick, chemistry's hemolyzed, unable to obtain redraw for CBC. Physician wanted redraw specifically for WBC count Cells Counted See Comment TOMY SAHU ([place]) Comment: DISREGARD RESULTS Patient hard stick, chemistry's hemolyzed, unable to obtain redraw for CBC. Physician wanted redraw specifically for WBC count Neutrophil abs See Comment 1.7 - 6.5 TOMY SAHU ([place]) Comment: DISREGARD RESULTS Patient hard stick, chemistry's hemolyzed, unable to obtain redraw for CBC. Physician wanted redraw specifically for WBC count Lymphocyte abs See Comment 0.8 - 3.3 TOMY SAHU ([place]) Comment: DISREGARD RESULTS Patient hard stick, chemistry's hemolyzed, unable to obtain redraw for CBC. Physician wanted redraw specifically for WBC count Monocyte abs See Comment 0.2 - 0.8 TOMY SAHU ([place]) Comment: DISREGARD RESULTS Patient hard stick, chemistry's hemolyzed, unable to obtain redraw for CBC. Physician wanted redraw specifically for WBC count Neutrophil pct See Comment TOMY SAHU ([place]) Comment: DISREGARD RESULTS Patient hard stick, chemistry's hemolyzed, unable to obtain redraw for CBC. Physician wanted redraw specifically for WBC count Interpretive Data Percent cell count reference ranges are not reported, since discordance with absolute values may lead to misinterpretation of CBC data. Current Interpretive Data was last revised on 2017. Lymphocyte pct See Comment TOMY SAHU ([place]) Comment: DISREGARD RESULTS Patient hard stick, chemistry's hemolyzed, unable to obtain redraw for CBC. Physician wanted redraw specifically for WBC count Interpretive Data Percent cell count reference ranges are not reported, since discordance with absolute values may lead to misinterpretation of CBC data. Current Interpretive Data was last revised on 2017. Monocyte pct See Comment TOMY SAHU ([place]) Comment: DISREGARD RESULTS Patient hard stick, chemistry's hemolyzed, unable to obtain redraw for CBC. Physician wanted redraw specifically for WBC count Interpretive Data Percent cell count reference ranges are not reported, since discordance with absolute values may lead to misinterpretation of CBC data. Current Interpretive Data was last revised on 2017. Variant lymph pct See Comment 0.0 - 0.0 TOMY SAHU ([place]) Comment: DISREGARD RESULTS Patient hard stick, chemistry's hemolyzed, unable to obtain redraw for CBC. Physician wanted redraw specifically for WBC count RBC morphology See Comment TOMY SAHU ([place]) Comment: DISREGARD RESULTS Patient hard stick, chemistry's hemolyzed, unable to obtain redraw for CBC. Physician wanted redraw specifically for WBC count Platelet estimate see comment TOMY SAHU ([place]) Comment: DISREGARD RESULTS Patient hard stick, chemistry's hemolyzed, unable to obtain redraw for CBC. Physician wanted redraw specifically for WBC count Blood specimen (specimen) 03/14/2020 5:51 AM GUARD CAPTAIN 03/14/2020 6:16 AM GUARD CAPTAIN us Sangeeta Ding MD LAB BLOOD ORDERABLES Edited Resu lt - Final TOMY SAHU ([place]) 1 [facility] [place] [address] * CBC with auto differential (03/14/2020 5:51 AM GUARD CAPTAIN) WBC See Comment 3.8 - 9.9 TOMY Frost ([place]) Comment: DISREGARD RESULTS Patient hard stick, chemistry's hemolyzed, unable to obtain redraw for CBC. Physician wanted redraw specifically for WBC count Hgb See Comment 11.9 - 15.5 TOMY SAHU ([place]) Comment: DISREGARD RESULTS Patient hard stick, chemistry's hemolyzed, unable to obtain redraw for CBC. Physician wanted redraw specifically for WBC count Hct See Comment 35.6 - 45.5 TOMY SAHU ([place]) Comment: DISREGARD RESULTS Patient hard stick, chemistry's hemolyzed, unable to obtain redraw for CBC. Physician wanted redraw specifically for WBC count Plt See Comment 150 - 400 TOMY Frost ([place]) Comment: Clumped platelets. DISREGARD RESULTS Patient hard stick, chemistry's hemolyzed, unable to obtain redraw for CBC. Physician wanted redraw specifically for WBC count MPV see comment 9.1 - 12.3 fL TOMY SAHU ([place]) Comment: DISREGARD RESULTS Patient hard stick, chemistry's hemolyzed, unable to obtain redraw for CBC. Physician wanted redraw specifically for WBC count RBC See Comment 3.90 - 5.20 TOMY SAHU ([place]) Comment: DISREGARD RESULTS Patient hard stick, chemistry's hemolyzed, unable to obtain redraw for CBC. Physician wanted redraw specifically for WBC count MCV See Comment 81.3 - 96.4 TOMY SAHU ([place]) Comment: DISREGARD RESULTS Patient hard stick, chemistry's hemolyzed, unable to obtain redraw for CBC. Physician wanted redraw specifically for WBC count MCH See Comment 27.1 - 33.3 TOMY SAHU ([place]) Comment: DISREGARD RESULTS Patient hard stick, chemistry's hemolyzed, unable to obtain redraw for CBC. Physician wanted redraw specifically for WBC count MCHC See Comment 32.3 - 35.7 TOMY SAHU ([place]) Comment: DISREGARD RESULTS Patient hard stick, chemistry's hemolyzed, unable to obtain redraw for CBC. Physician wanted redraw specifically for WBC count RDW CV see comment 11.1 - 14.9 % TOMY SAHU ([place]) Comment: DISREGARD RESULTS Patient hard stick, chemistry's hemolyzed, unable to obtain redraw for CBC. Physician wanted redraw specifically for WBC count RDW SD see comment 35.7 - 48.1 fL TOMY SAHU ([place]) Comment: DISREGARD RESULTS Patient hard stick, chemistry's hemolyzed, unable to obtain redraw for CBC. Physician wanted redraw specifically for WBC count NRBC abs See Comment 0.00 - 0.01 TOMY SAHU ([place]) Comment: DISREGARD RESULTS Patient hard stick, chemistry's hemolyzed, unable to obtain redraw for CBC. Physician wanted redraw specifically for WBC count Blood specimen (specimen) 03/14/2020 5:51 AM GUARD CAPTAIN 03/14/2020 6:16 AM GUARD CAPTAIN Sangeeta Ding MD LAB BLOOD ORDERABLES Edited Resu lt - Final TOMY SAHU ([place]) 1 [facility] [place] [address] * (ABNORMAL) POCT glucose (03/14/2020 4:47 AM GUARD CAPTAIN) Glucose, POC 130(H) 71 - 98 mg/dL TOMY SAHU ([place]) Blood specimen (specimen) 03/14/2020 4:47 AM GUARD CAPTAIN 03/14/2020 4:47 AM GUARD CAPTAIN us Ayana Prado MD LAB POCT ORDERABLES - DEVICE Fin al Result Performing Organization Address City/[facility]/ZIP Co de Phone Number TOMY SAHU ([place]) 1 [facility] [employer] [address] * (ABNORMAL) POCT glucose (03/14/2020 2:50 AM GUARD CAPTAIN) Glucose, POC 121(H) 71 - 98 mg/dL TOMY SAHU ([place]) Blood specimen (specimen) 03/14/2020 2:50 AM GUARD CAPTAIN 03/14/2020 2:50 AM GUARD CAPTAIN us Ayana Prado MD LAB POCT ORDERABLES - DEVICE Fin al Result Performing Organization Address [facility] Co de Phone Number TOMY SAHU ([place]) 1 [facility] [place] [address] * (ABNORMAL) POCT glucose (03/14/2020 12:35 AM GUARD CAPTAIN) Glucose, POC 117(H) 71 - 98 mg/dL TOMY SAHU ([place]) Blood specimen (specimen) 03/14/2020 12:35 AM GUARD CAPTAIN 03/14/2020 12:35 AM GUARD CAPTAIN us Ayana Prado MD LAB POCT ORDERABLES - DEVICE Fin al Result Performing Organization Address [facility] Co de Phone Number TOMY SAHU ([place]) 1 [facility] [place] [address] * (ABNORMAL) POCT glucose (03/13/2020 11:09 PM GUARD CAPTAIN) Glucose, POC 119(H) 71 - 98 mg/dL TOMY [facility] ([place]) Blood specimen (specimen) 03/13/2020 11:09 PM GUARD CAPTAIN 03/13/2020 11:09 PM GUARD CAPTAIN us Ayana Prado MD LAB POCT ORDERABLES - DEVICE Fin al Result Performing Organization Address City/[facility] Co de Phone Number TOMY SAHU ([place]) 1 [facility] [place] [address] * (ABNORMAL) POCT glucose (03/13/2020 9:48 PM GUARD CAPTAIN) Pathologist [facility] Glucose, POC 124(H) 71 - 98 mg/dL TOMY SAHU ([place]) Blood specimen (specimen) 03/13/2020 9:48 PM GUARD CAPTAIN 03/13/2020 9:48 PM GUARD CAPTAIN us Ayana Prado MD LAB POCT ORDERABLES - DEVICE Fin al Result TOMY SAHU ([place]) 1 [facility] [place] [employer] [address] * eGFR (03/13/2020 8:33 PM GUARD CAPTAIN) [facility] eGFR 149 mL/min/1.7 3 m2 TOMY SAHU ([place]) Comment: Interpretive Data Reference Interval Normal ?>/= 90 mL/min/1.73m2 Mildly decreased* ? 60 - 89 mL/min/1.73m2 Mildly to moderately decreased ?45 - 59 mL/min/1.73m2 Moderately to severely decreased ??30 - 44 mL/min/1.73m2 Severely decreased ?15 - 29 mL/min/1.73m2 Kidney Failure ?< 15 ??mL/min/1.73m2 *Relative to young adult level If -British multiply value by 1.16. Estimated glomerular filtration rate is determined by [...] 70. Current interpretive data was last reviewed 2015. Blood specimen (specimen) 03/13/2020 8:33 PM GUARD CAPTAIN 03/13/2020 8:55 PM GUARD CAPTAIN Sangeeta Ding MD LAB BLOOD ORDERABLES Final Resul t TOMY [facility] ([place]) 1 [facility] [place] [address] * (ABNORMAL) Basic metabolic panel (03/13/2020 8:33 PM GUARD CAPTAIN) Sodium 133(L) 135 - 145 mmol/L [facility] ([place]) Potassium, pl 3.7 3.3 - 4.9 mmol/L [facility] ([place]) Comment:Hemolysis present. R esults may be affected. Chloride 104 97 - 110 mmol/L [facility] ([place]) CO2 17(L) 22 - 32 mmol/L [facility] ([place]) Anion gap 12 2 - 15 mmol/L [facility] ([place]) BUN 12 8 - 25 mg/dL [facility] ([place]) Creatinine 0.38(L) 0.60 - 1.10 mg/dL [facility] ([place]) Glucose 123 70 - 199 mg/dL [facility] ([place]) [...] - 10.3 mg/dL [facility] ([place]) Blood specimen (specimen) 03/13/2020 8:33 PM GUARD CAPTAIN 03/13/2020 8:53 PM GUARD CAPTAIN Sangeeta Ding MD LAB BLOOD ORDERABLES Final Resul t TOMY SAHU ([place]) 1 [facility] [employer] [address] * Phosphorus (03/13/2020 8:33 PM GUARD CAPTAIN) Pathologist [facility] Phosphorus, pl 2.6 2.3 - 4.5 mg/dL TOMY SAHU ([place]) Blood specimen (specimen) 03/13/2020 8:33 PM GUARD CAPTAIN 03/13/2020 8:53 PM GUARD CAPTAIN us Sangeeta Ding MD LAB BLOOD ORDERABLES Final Resul t Performing Organization Address City/[facility]/ZIP Co de Phone Number TOMY SAHU ([place]) 1 [facility] [place] [address] * Magnesium (03/13/2020 8:33 PM GUARD CAPTAIN) [facility] Magnesium 1.6 1.4 - 2.5 mg/dL ASHLEYTOSHA SAHU ([place]) Blood specimen (specimen) 03/13/2020 8:33 PM GUARD CAPTAIN 03/13/2020 8:53 PM GUARD CAPTAIN Sangeeta Ding MD LAB BLOOD ORDERABLES Final Resul t Performing Organization Address [facility]/ZIP Co de Phone Number TOMY SAHU ([place]) 1 [facility] [place] [address] * (ABNORMAL) POCT glucose (03/13/2020 8:32 PM GUARD CAPTAIN) Pathologist [facility] Glucose, POC 118(H) 71 - 98 mg/dL TOMY SAHU ([place]) Blood specimen (specimen) 03/13/2020 8:32 PM GUARD CAPTAIN 03/13/2020 8:32 PM GUARD CAPTAIN us Ayana Prado MD LAB POCT ORDERABLES - DEVICE Fin al Result TOMY SAHU ([place]) 1 [facility] [place] [address] * (ABNORMAL) POCT glucose (03/13/2020 7:26 PM GUARD CAPTAIN) Glucose, POC 112(H) 71 - 98 mg/dL TOMY SAHU ([place]) Blood specimen (specimen) 03/13/2020 7:26 PM GUARD CAPTAIN 03/13/2020 7:26 PM GUARD CAPTAIN Ayana Prado MD LAB POCT ORDERABLES - DEVICE Fin al Result TOMY SAHU ([place]) 1 [facility] [place] [address] * (ABNORMAL) POCT glucose (03/13/2020 6:12 PM GUARD CAPTAIN) Glucose, POC 127(H) 71 - 98 mg/dL TOMY [facility] ([place]) Blood specimen (specimen) 03/13/2020 6:12 PM GUARD CAPTAIN 03/13/2020 6:12 PM GUARD CAPTAIN Ayana Prado MD LAB POCT ORDERABLES - DEVICE Fin al Result Performing Organization Address City/[facility] Co de Phone Number TOMY SAHU ([place]) 1 [facility] [place] [address] * (ABNORMAL) POCT glucose (03/13/2020 5:04 PM GUARD CAPTAIN) Glucose, POC 142(H) 71 - 98 mg/dL TOMY SAHU ([place]) Blood specimen (specimen) 03/13/2020 5:04 PM GUARD CAPTAIN 03/13/2020 5:04 PM GUARD CAPTAIN Ayana Prado MD LAB POCT ORDERABLES - DEVICE Fin al Result Performing Organization Address City/[facility]/ZIP Co de Phone Number TOMY SAHU ([place]) 1 [facility] [place] [address] * eGFR (03/13/2020 4:24 PM GUARD CAPTAIN) eGFR 156 mL/min/1.7 3 m2 [facility] ([place]) Comment: Interpretive Data Reference Interval Normal ?>/= 90 mL/min/1.73m2 Mildly decreased* ? 60 - 89 mL/min/1.73m2 Mildly to moderately decreased ?45 - 59 mL/min/1.73m2 Moderately to severely decreased ??30 - 44 mL/min/1.73m2 Severely decreased ?15 - 29 mL/min/1.73m2 Kidney Failure ?< 15 ??mL/min/1.73m2 *Relative to young adult level If -British multiply value by 1.16. Estimated glomerular filtration rate is determined by [...] 70. Current interpretive data was last reviewed 2015. Blood specimen (specimen) 03/13/2020 4:24 PM GUARD CAPTAIN 03/13/2020 4:28 PM GUARD CAPTAIN us Sangeeta Ding MD LAB BLOOD ORDERABLES Final Resul t [facility] ([place]) 1 [facility] [place] [address] * (ABNORMAL) Basic metabolic panel (03/13/2020 4:24 PM GUARD CAPTAIN) Sodium 133(L) 135 - 145 mmol/L [facility] ([place]) Potassium, pl 3.7 3.3 - 4.9 mmol/L [facility] ([place]) Chloride 103 97 - 110 mmol/L [facility] ([place]) CO2 16(L) 22 - 32 mmol/L [facility] ([place]) Anion gap 14 2 - 15 mmol/L [facility] ([place]) BUN 12 8 - 25 mg/dL [facility] ([place]) Creatinine 0.33(L) 0.60 - 1.10 mg/dL [facility] ([place]) Glucose 141 70 - 199 mg/dL [facility] ([place]) Comment: Interpretive Data Fasting [...] 2017. Calcium 9.2 8.5 - 10.3 mg/dL [facility] ([place]) Blood specimen (specimen) 03/13/2020 4:24 PM GUARD CAPTAIN 03/13/2020 4:28 PM GUARD CAPTAIN Sangeeta Ding MD LAB BLOOD ORDERABLES Final Resul t [facility] ([place]) 1 [facility] [place] [address] * Phosphorus (03/13/2020 4:24 PM GUARD CAPTAIN) Phosphorus, pl 2.8 2.3 - 4.5 mg/dL [facility] ([place]) Blood specimen (specimen) 03/13/2020 4:24 PM GUARD CAPTAIN 03/13/2020 4:28 PM GUARD CAPTAIN Sangeeta Ding MD LAB BLOOD ORDERABLES Final Resul t [facility] ([place]) 1 [facility] [place] [address] * Magnesium (03/13/2020 4:24 PM GUARD CAPTAIN) Magnesium 1.8 1.4 - 2.5 mg/dL TOMY SAHU ([place]) Blood specimen (specimen) 03/13/2020 4:24 PM GUARD CAPTAIN 03/13/2020 4:28 PM GUARD CAPTAIN us Sangeeta Ding MD LAB BLOOD ORDERABLES Final Resul t TOMY SAHU ([place]) 1 [facility] [place] [address] * Lactate (03/13/2020 4:24 PM GUARD CAPTAIN) Pathologist [facility] Lactate 0.7 0.7 - 2.0 mmol/L [facility] ([place]) Blood specimen (specimen) 03/13/2020 4:24 PM GUARD CAPTAIN 03/13/2020 4:28 PM GUARD CAPTAIN Narrative [facility] LUIS ALBERTO ([place]) - 03/13/2020 4:32 PM GUARD CAPTAIN unable to get lactate per RN Evert de la torre okay will try with next draw [id number] 03/13/2020 12:49:23 GUARD CAPTAIN us Sangeeta Ding MD LAB BLOOD ORDERABLES Final Resul t Performing Organization Address City/[facility]/ZIP Co de Phone Number TOMY SAHU ([place]) 1 [facility] [place] [address] * (ABNORMAL) POCT glucose (03/13/2020 3:58 PM GUARD CAPTAIN) Pathologist [facility] Glucose, POC 109(H) 71 - 98 mg/dL TOMY SAHU ([place]) Blood specimen (specimen) 03/13/2020 3:58 PM GUARD CAPTAIN 03/13/2020 3:58 PM GUARD CAPTAIN Ayana Prado MD LAB POCT ORDERABLES - DEVICE Fin al Result TOMY SAHU ([place]) 1 [facility] [place] [address] * (ABNORMAL) POCT glucose (03/13/2020 2:50 PM GUARD CAPTAIN) Glucose, POC 103(H) 71 - 98 mg/dL TOMY SAHU ([place]) Blood specimen (specimen) 03/13/2020 2:50 PM GUARD CAPTAIN 03/13/2020 2:50 PM GUARD CAPTAIN Ayana Prado MD LAB POCT ORDERABLES - DEVICE Fin al Result Performing Organization Address [facility]/ZIP Co de Phone Number TOMY SAHU ([place]) 1 [facility] [place] [address] * (ABNORMAL) POCT glucose (03/13/2020 1:13 PM GUARD CAPTAIN) Pathologist [facility] Glucose, POC 114(H) 71 - 98 mg/dL TOMY SAHU ([place]) Blood specimen (specimen) 03/13/2020 1:13 PM GUARD CAPTAIN 03/13/2020 1:13 PM GUARD CAPTAIN Ayana Prado MD LAB POCT ORDERABLES - DEVICE Fin al Result Performing Organization Address [facility] Co de Phone Number TOMY SAHU ([place]) 1 [facility] [place] [address] * (ABNORMAL) Beta-hydroxybutyrate (03/13/2020 12:25 PM GUARD CAPTAIN) [facility] Beta-Hydroxybu tyrate 0.8(H) <=0.5 mmol/L [facility] ([place]) Comment:Testing performed by : [facility], [address] [place] [address], [place] [address] Blood specimen (specimen) 03/13/2020 12:25 PM GUARD CAPTAIN 03/13/2020 5:14 PM GUARD CAPTAIN Sangeeta Ding MD LAB BLOOD ORDERABLES Final Resul t Performing Organization Address [facility] Co de Phone Number TOMY SAHU ([place]) 1 [facility] [place] [address] * eGFR (03/13/2020 12:08 PM GUARD CAPTAIN) eGFR 134 mL/min/1.7 3 m2 [facility] ([place]) Comment: Interpretive Data Reference Interval Normal ?>/= 90 mL/min/1.73m2 Mildly decreased* ? 60 - 89 mL/min/1.73m2 Mildly to moderately decreased ?45 - 59 mL/min/1.73m2 Moderately to severely decreased ??30 - 44 mL/min/1.73m2 Severely decreased ?15 - 29 mL/min/1.73m2 Kidney Failure ?< 15 ??mL/min/1.73m2 *Relative to young adult level If -British multiply value by 1.16. Estimated glomerular filtration rate is determined by [...] 70. Current interpretive data was last reviewed 2015. Blood specimen (specimen) 03/13/2020 12:08 PM GUARD CAPTAIN 03/13/2020 2:10 PM GUARD CAPTAIN us Sangeeta Ding MD LAB BLOOD ORDERABLES Final Resul t [facility]Y [facility] ([place]) 1 [facility] [place] [address] * (ABNORMAL) Basic metabolic panel (03/13/2020 12:08 PM GUARD CAPTAIN) Pathologist [facility] Sodium 134(L) 135 - 145 mmol/L [facility] ([place]) Potassium, pl 4.4 3.3 - 4.9 mmol/L [facility] ([place]) Chloride 106 97 - 110 mmol/L [facility] ([place]) CO2 11(L) 22 - 32 mmol/L [facility] ([place]) Anion gap 16(H) 2 - 15 mmol/L [facility] ([place]) BUN 13 8 - 25 mg/dL [facility] ([place]) Creatinine 0.53(L) 0.60 - 1.10 mg/dL [facility] ([place]) Glucose 146 70 - 199 mg/dL [facility] ([place]) Comment: Interpretive Data Fasting [...] interpretive data was last revised 2017. Calcium 9.4 8.5 - 10.3 mg/dL [facility] ([place]) Blood specimen (specimen) 03/13/2020 12:08 PM GUARD CAPTAIN 03/13/2020 2:10 PM GUARD CAPTAIN Sanegeta Ding MD LAB BLOOD ORDERABLES Final Resul t [facility] ([place]) 1 [facility] [place] [address] * Phosphorus (03/13/2020 12:08 PM GUARD CAPTAIN) Pathologist [facility] Phosphorus, pl 2.3 2.3 - 4.5 mg/dL [facility] ([place]) Blood specimen (specimen) 03/13/2020 12:08 PM GUARD CAPTAIN 03/13/2020 12:45 PM GUARD CAPTAIN Sangeeta Ding MD LAB BLOOD ORDERABLES Final Resul t TOMY [facility] ([place]) 1 [facility] [place] [address] * Magnesium (03/13/2020 12:08 PM GUARD CAPTAIN) Magnesium 1.9 1.4 - 2.5 mg/dL TOMY SAHU ([place]) Blood specimen (specimen) 03/13/2020 12:08 PM GUARD CAPTAIN 03/13/2020 12:45 PM GUARD CAPTAIN us Sangeeta Ding MD LAB BLOOD ORDERABLES Final Resul t TOMY SAHU ([place]) 1 [facility] [place] [address] * (ABNORMAL) POCT glucose (03/13/2020 11:39 AM GUARD CAPTAIN) Glucose, POC 153(H) 71 - 98 mg/dL TOMY SAHU ([place]) Blood specimen (specimen) 03/13/2020 11:39 AM GUARD CAPTAIN 03/13/2020 11:39 AM GUARD CAPTAIN us Ayana Prado MD LAB POCT ORDERABLES - DEVICE Fin al Result Performing Organization Address [facility] Co de Phone Number TOMY SAHU ([place]) 1 [facility] [place] [address] * (ABNORMAL) POCT glucose (03/13/2020 10:36 AM GUARD CAPTAIN) Glucose, POC 175(H) 71 - 98 mg/dL TOMY SAHU ([place]) Blood specimen (specimen) 03/13/2020 10:36 AM GUARD CAPTAIN 03/13/2020 10:36 AM GUARD CAPTAIN us Ayana Prado MD LAB POCT ORDERABLES - DEVICE Fin al Result Performing Organization Address City/[facility]/ZIP Co de Phone Number TOMY SAHU ([place]) 1 [facility] [place] [address] * (ABNORMAL) POCT glucose (03/13/2020 9:16 AM GUARD CAPTAIN) Glucose, POC 123(H) 71 - 98 mg/dL TOMY SAHU ([place]) Blood specimen (specimen) 03/13/2020 9:16 AM GUARD CAPTAIN 03/13/2020 9:16 AM GUARD CAPTAIN Ayana Prado MD LAB POCT ORDERABLES - DEVICE Fin al Result Performing Organization Address [facility]/ZIP Co de Phone Number TOMY SAHU ([place]) 1 [facility] [place] [address] * (ABNORMAL) POCT glucose (03/13/2020 8:11 AM GUARD CAPTAIN) Glucose, POC 129(H) 71 - 98 mg/dL TOMY [facility] ([place]) Blood specimen (specimen) 03/13/2020 8:11 AM GUARD CAPTAIN 03/13/2020 8:11 AM GUARD CAPTAIN us Ayana Prado MD LAB POCT ORDERABLES - DEVICE Fin al Result Performing Organization Address [facility] Co de Phone Number TOMY SAHU ([place]) 1 [facility] [place] [address] * (ABNORMAL) POCT glucose (03/13/2020 6:48 AM GUARD CAPTAIN) Glucose, POC 156(H) 71 - 98 mg/dL [facility] ([place]) Blood specimen (specimen) 03/13/2020 6:48 AM GUARD CAPTAIN 03/13/2020 6:48 AM GUARD CAPTAIN Dre Mancuso MD LAB POCT ORDERABLES - DEVICE F inal Result Performing Organization Address City/[facility] Co de Phone Number TOMY SAHU ([place]) 1 [facility] [place] [address] * (ABNORMAL) POCT glucose (03/13/2020 5:43 AM GUARD CAPTAIN) Glucose, POC 186(H) 71 - 98 mg/dL [facility] ([place]) Blood specimen (specimen) 03/13/2020 5:43 AM GUARD CAPTAIN 03/13/2020 5:43 AM GUARD CAPTAIN Dre Mancuso MD LAB POCT ORDERABLES - DEVICE F inal Result Performing Organization Address [facility]/ZIP Co de Phone Number TOMY SAHU ([place]) 1 [facility] [place] [address] * (ABNORMAL) POCT glucose (03/13/2020 4:42 AM GUARD CAPTAIN) Glucose, POC 218(H) 71 - 98 mg/dL [facility] Blood specimen (specimen) 03/13/2020 4:42 AM GUARD CAPTAIN 03/13/2020 4:42 AM GUARD CAPTAIN Dre Mancuso MD LAB POCT ORDERABLES - DEVICE F inal Result Performing Organization Address [facility] Co de Phone Number [facility] ([place]) 1 [facility] [place] [address] * (ABNORMAL) POCT glucose (03/13/2020 2:46 AM GUARD CAPTAIN) [facility] Glucose, POC 291(H) 71 - 98 mg/dL [facility] ([place] Blood specimen (specimen) 03/13/2020 2:46 AM GUARD CAPTAIN 03/13/2020 2:46 AM GUARD CAPTAIN Dre Mancuso MD LAB POCT ORDERABLES - DEVICE F inal Result Performing Organization Address [facility] Co de Phone Number [facility] ([place]) 1 [facility] [employer] [address] * eGFR (03/13/2020 2:13 AM GUARD CAPTAIN) eGFR 137 mL/min/1.7 3 m2 [facility] ([place] Comment: Interpretive Data Reference Interval Normal ?>/= 90 mL/min/1.73m2 Mildly decreased* ? 60 - 89 mL/min/1.73m2 Mildly to moderately decreased ?45 - 59 mL/min/1.73m2 Moderately to severely decreased ??30 - 44 mL/min/1.73m2 Severely decreased ?15 - 29 mL/min/1.73m2 Kidney Failure ?< 15 ??mL/min/1.73m2 *Relative to young adult level If -British multiply value by 1.16. Estimated glomerular filtration rate is determined by [...] 70. Current interpretive data was last reviewed 2015. Blood specimen (specimen) 03/13/2020 2:13 AM GUARD CAPTAIN 03/13/2020 2:16 AM GUARD CAPTAIN us Tavo Miramontes MD LAB BLOOD ORDERABLES Fi nal Result [facility] ([place]) 1 [facility] [place] [address] * (ABNORMAL) Basic metabolic panel (03/13/2020 2:13 AM GUARD CAPTAIN) Sodium 131(L) 135 - 145 mmol/L [facility] ([place]) Potassium, pl 4.5 3.3 - 4.9 mmol/L [facility] ([place]) Chloride 100 97 - 110 mmol/L [facility] ([place]) CO2 13(L) 22 - 32 mmol/L [facility] ([place]) Anion gap 18(H) 2 - 15 mmol/L [facility] ([place]) BUN 12 8 - 25 mg/dL [facility] ([place]) Creatinine 0.49(L) 0.60 - 1.10 mg/dL [facility] ([place]) Glucose 313(H) 70 - 199 mg/dL [facility] Comment: Interpretive Data Fasting glucose [...] 2017. Calcium 9.2 8.5 - 10.3 mg/dL [facility] ([place]) Blood specimen (specimen) 03/13/2020 2:13 AM GUARD CAPTAIN 03/13/2020 2:16 AM GUARD CAPTAIN us Tavo Miramontes MD LAB BLOOD ORDERABLES Fi nal Result [facility] ([place]) 1 [facility] [place] [address] * XR Chest 1 Vw Portable (03/13/2020 12:17 AM GUARD CAPTAIN) Anatomical Region Laterality Modality Body, Chest N/A Computed Radiogr aphy 03/13/2020 12:1 1 AM GUARD CAPTAIN Impressions 03/13/2020 12:40 AM GUARD CAPTAIN ?? No acute cardiopulmonary disease. THIS IS AN ELECTRONICALLY VERIFIED FINAL REPORT 03/13/2020 12:37 AM - Electronically signed by Cristina Stringer D.O. PS: PS D: ??03/13/2020 12:37 AM T: ??03/13/2020 12:37 AM Report ID: [id number] Reading Location: ??[id number] Narrative 03/13/2020 12:40 AM GUARD CAPTAIN [facility] ?Imaging Result Name: TIARA KARINA Samir ? Ordering Phys: TAVO MIRAMONTES Age: 24 ?Date of : 1995 ? Accession Number: [id number] Date of Service: 03/13/2020 ??Gender: F EXAM DESCRIPTION: ?? XR CHEST 1 VIEW REASON FOR STUDY: ?? patient is pregnate/vomiting today/nonsmoker/fever/diabetic/shielded for 1 xrayDuration: today TECHNIQUE: ?? Frontal radiographic view of the chest acquired. COMPARISON: ?? 04/25/2019 ??The heart, mediastinum, and pulmonary vasculature are grossly stable. ??There is no definite evidence of a pneumothorax. ??There is no definite evidence of focal consolidation or pleural effusion. The osseous structures are grossly stable. Procedure Note Cristina Stringer, DO - 03/13/2020 [facility] Imaging Result Name: KARINA MENJIVAR Ordering Phys: TAVO MIRAMONTES Age: 24 Date of : 1995 Accession Number: [id number] Date of Service: 03/13/2020 Gender: F EXAM DESCRIPTION: XR CHEST 1 VIEW REASON FOR STUDY: patient is pregnate/vomiting today/nonsmoker/fever/diabetic/shielded for 1 xrayDuration: today TECHNIQUE: Frontal radiographic view of the chest acquired. COMPARISON: 04/25/2019 The heart, mediastinum, and pulmonary vasculature are grossly stable. There is no definite evidence of a pneumothorax. There is no definite evidence of focal consolidation or pleural effusion. The osseous structures are grossly stable. IMPRESSION: No acute cardiopulmonary disease. THIS IS AN ELECTRONICALLY VERIFIED FINAL REPORT 03/13/2020 12:37 AM - Electronically signed by Cristina Stringer D.O. PS: PS Report ID: [id number] Reading Location: [place] [address] us Tavo Miramontes MD IMG XR PROCEDURES Final Result * (ABNORMAL) Sepsis Lactate w/ Reflex (03/12/2020 11:55 PM GUARD CAPTAIN) Sepsis Lactate 2.9(H) 0.7 - 2.0 mmol/L [facility] ([place]) Blood specimen (specimen) 03/12/2020 11:55 PM GUARD CAPTAIN 03/12/2020 11:58 PM GUARD CAPTAIN Kevin COLUNGA LAB BLOOD ORDERABLES Final R esult Performing Organization Address [facility] Co de Phone Number [facility] ([place]) 1 [place] [address] * (ABNORMAL) POCT glucose (03/12/2020 11:02 PM GUARD CAPTAIN) Pathologist [facility] Glucose, POC 224(H) 71 - 98 mg/dL [facility] ([place]) Blood specimen (specimen) 03/12/2020 11:02 PM GUARD CAPTAIN 03/12/2020 11:02 PM GUARD CAPTAIN Dre Mancuso MD LAB POCT ORDERABLES - DEVICE F inal Result Performing Organization Address [facility] de Phone Number [facility] ([place]) 1 [place] [address] * (ABNORMAL) Sepsis Lactate w/ Reflex (03/12/2020 10:24 PM GUARD CAPTAIN) [facility] Sepsis Lactate 2.7(H) 0.7 - 2.0 mmol/L [facility] ([place]) Blood specimen (specimen) 03/12/2020 10:24 PM GUARD CAPTAIN 03/12/2020 10:30 PM GUARD CAPTAIN Kevin COLUNGA LAB BLOOD ORDERABLES Final R esult Performing Organization Address [facility] de Phone Number [facility] ([place]) 1 [place] [address] * (ABNORMAL) Urinalysis reflex to microscopic and culture Urine (03/12/2020 9:06 PM GUARD CAPTAIN) Color, ur Yellow Yellow [facility] ([place]) Clarity, ur Clear Clear [facility] ([place]) Specific gravity, ur 1.027(H) 1.010 - 1.025 [facility] ([place]) pH, urine 5.5 [facility] ([place]) Protein, ur ql Trace Negative [facility] ([place]) Glucose, ur ql 4+(A) Negative [facility] Ketones, ur 4+(A) Negative [facility] ([place]) Bilirubin, ur Negative Negative [facility] ([place]) Blood, ur Negative Negative [facility] ([place]) Urobilinogen, ur <2.0 <2.0 mg/dL [facility] ([place]) Nitrite, ur Negative Negative [facility] ([place]) Leukocyte esterase, ur Negative Negative [facility] ([place]) UA reflex comment Reflex conditions for microscopic UA and culture not met. [facility] ([place]) Urine 03/12/2020 9:06 PM GUARD CAPTAIN 03/12/2020 9:09 PM GUARD CAPTAIN Narrative [facility] ([place]) - 03/12/2020 9:33 PM GUARD CAPTAIN ?? Urine pH is affected by diet, medications, systemic acid-base disturbances, and renal tubular function. ??pH may affect urinary stone formation. ??For example, urine pH below 6.0 may help reduce the tendency for calcium phosphate stones and pH greater than 6.0 may reduce the tendency for uric acid stone formation. Source: [facility] [employer]. Last revised 05-13-2017 us Kevin COLUNGA LAB MICROBIOLOGY - GENERAL O RDERABLES Final Result [facility] ([place]) 1 [facility] [place] [address] * eGFR (03/12/2020 8:08 PM GUARD CAPTAIN) eGFR 143 mL/min/1.7 3 m2 [facility] ([place]) Comment: Interpretive Data Reference Interval Normal ?>/= 90 mL/min/1.73m2 Mildly decreased* ? 60 - 89 mL/min/1.73m2 Mildly to moderately decreased ?45 - 59 mL/min/1.73m2 Moderately to severely decreased ??30 - 44 mL/min/1.73m2 Severely decreased ?15 - 29 mL/min/1.73m2 Kidney Failure ?< 15 ??mL/min/1.73m2 *Relative to young adult level If -British multiply value by 1.16. Estimated glomerular filtration rate is determined by [...] 70. Current interpretive data was last reviewed 2015. Blood specimen (specimen) 03/12/2020 8:08 PM GUARD CAPTAIN 03/12/2020 8:13 PM GUARD CAPTAIN Kevin COLUNGA LAB BLOOD ORDERABLES Final R esult [facility] ([place]) 1 [facility] [place] [address] * (ABNORMAL) Differential, auto (03/12/2020 8:08 PM GUARD CAPTAIN) Neutrophil abs 10.9(H) 1.7 - 6.5 K/cumm [facility] ([place]) Imm gran abs 0.1 0.0 - 0.1 K/cumm [facility] ([place]) Lymphocyte abs 1.6 0.8 - 3.3 K/cumm [facility] ([place]) Monocyte abs 0.7 0.2 - 0.8 K/cumm [facility] ([place]) Eosinophil abs 0.0 0.0 - 0.5 K/cumm [facility] ([place]) Basophil abs 0.0 0.0 - 0.1 K/cumm [facility] ([place]) Neutrophil pct 81.9 % [facility] ([place]) Comment: Interpretive Data Percent cell count reference ranges are not reported, since discordance with absolute values may lead to misinterpretation of CBC data. Current Interpretive Data was last revised on 2017. Imm gran pct 0.6 % [facility] ([place]) Comment: Interpretive Data Percent cell count reference ranges are not reported, since discordance with absolute values may lead to misinterpretation of CBC data. Current Interpretive Data was last revised on 2017. Lymphocyte pct 12.3 % [facility] ([place]) Comment: Interpretive Data Percent cell count reference ranges are not reported, since discordance with absolute values may lead to misinterpretation of CBC data. Current Interpretive Data was last revised on 2017. Monocyte pct 5.0 % [facility] ([place]) Comment: Interpretive Data Percent cell [...] on 2017. Basophil pct 0.2 % [facility] ([place]) Comment: Interpretive Data Percent cell count reference ranges are not reported, since discordance with absolute values may lead to misinterpretation of CBC data. Current Interpretive Data was last revised on 2017. Blood specimen (specimen) 03/12/2020 8:08 PM GUARD CAPTAIN 03/12/2020 8:13 PM GUARD CAPTAIN us Kevin COLUNGA LAB BLOOD ORDERABLES Final R esult [facility] ([place]) 1 [facility] [place] [address] * (ABNORMAL) hCG, blood, quantitative (03/12/2020 8:08 PM GUARD CAPTAIN) hCG, quant 27,122.0( H) 0.0 - 5.0 IUnits/L [facility] ([place]) [...] last revised on 2017. Blood specimen (specimen) 03/12/2020 8:08 PM GUARD CAPTAIN 03/12/2020 8:13 PM GUARD CAPTAIN Kevin COLUNGA LAB BLOOD ORDERABLES Final R esult Performing Organization Address [facility] de Phone Number [facility] ([place] 1 [facility] [place] [address] * (ABNORMAL) Blood gas, venous (03/12/2020 8:08 PM GUARD CAPTAIN) pH, Venous 7.43 7.32 - 7.43 [facility] ([place]) PCO2, Venous 29(L) 40 - 50 mmHg [facility] ([place]) PO2, Venous 83 mmHg [facility] ([place]) Comment: Interpretive Data No Reference Range Established Current Interpretive Data was last revised on 2017. HCO3 Venous, Calculated 19(L) 20 - 30 mmol/L [facility] ([place]) BE, venous -4 mmol/L [facility] ([place]) Comment: Interpretive Data No Reference Range Established Current Interpretive Data was last revised on 2017. Blood specimen (specimen) 03/12/2020 8:08 PM GUARD CAPTAIN 03/12/2020 8:12 PM GUARD CAPTAIN Kevin COLUNGA LAB BLOOD ORDERABLES Final R esult Performing Organization Address [facility] Co de Phone Number [facility] ([place] 1 [facility] [place] [address] * (ABNORMAL) aPTT (03/12/2020 8:08 PM GUARD CAPTAIN) aPTT 23(L) 25 - 37 sec [facility] ([place]) Comment: Interpretive data Heparin therapeutic range: 60-94 seconds Range based on correlation with therapeutic heparin activity range of 0.3-0.7 units/ml. Current interpretive data was last revised on 2019. Blood specimen (specimen) 03/12/2020 8:08 PM GUARD CAPTAIN 03/12/2020 8:13 PM GUARD CAPTAIN Kevin COLUNGA LAB BLOOD ORDERABLES Final R esult Performing Organization Address City/[facility] Co de Phone Number [facility] ([place]) 1 [facility] [place] [address] * Protime-INR (03/12/2020 8:08 PM GUARD CAPTAIN) Pathologist [facility] PT 13.0 9.5 - 13.0 sec [facility] ([place]) INR 1.2 0.9 - 1.2 [facility] ([place]) Comment: Interpretive data Oral anticoagulant therapeutic ranges: Venous thromboembolism prophylaxis or treatment: 2.0-3.0 CARDIOLOGY Standard range: 2.0-3.0 High-intensity range: 2.5-3.5 Refer to indication-specific guidelines for appropriate target ranges for prosthetic heart valve replacement. Current interpretive data was last revised on 2019. Blood specimen (specimen) 03/12/2020 8:08 PM GUARD CAPTAIN 03/12/2020 8:13 PM GUARD CAPTAIN Kevin COLUNGA LAB BLOOD ORDERABLES Final R esult [facility] ([place]) 1 [facility] [place] [address] * (ABNORMAL) Sepsis Lactate w/ Reflex (03/12/2020 8:08 PM GUARD CAPTAIN) Sepsis Lactate 2.6(H) 0.7 - 2.0 mmol/L [facility] ([place]) Blood specimen (specimen) 03/12/2020 8:08 PM GUARD CAPTAIN 03/12/2020 8:12 PM GUARD CAPTAIN Kevin COLUNGA LAB BLOOD ORDERABLES Final R esult [facility] ([place]) 1 [facility] [place] [address] * (ABNORMAL) Comprehensive metabolic panel (03/12/2020 8:08 PM GUARD CAPTAIN) Sodium 131(L) 135 - 145 mmol/L [facility] ([place]) Potassium, pl 4.5 3.3 - 4.9 mmol/L [facility] ([place]) Comment:Hemolysis present. R esults may be affected. Chloride 97 97 - 110 mmol/L [facility] ([place]) CO2 15(L) 22 - 32 mmol/L [facility] ([place]) Anion gap 19(H) 2 - 15 mmol/L [facility] ([place]) BUN 13 8 - 25 mg/dL [facility] ([place]) Creatinine 0.43(L) 0.60 - 1.10 mg/dL [facility] ([place]) Glucose 221(H) 70 - 199 mg/dL [facility] ([place]) [...] interpretive data was last revised 2017. Calcium 10.1 8.5 - 10.3 mg/dL [facility] ([place]) Bilirubin, total 0.4 0.1 - 1.2 mg/dL [facility] ([place]) Protein, pl 7.4 6.5 - 8.5 g/dL [facility] ([place]) Albumin 4.6 3.5 - 5.0 g/dL [facility] ([place]) Alk phos 72 40 - 130 Units/L [facility] ([place]) Comment:Hemolysis present. R esults may be affected. ALT 13 7 - 45 Units/L [facility] ([place]) Comment: Hemolysis present. ??Results may be affected. Moderately Hemolyzed Specimen AST 34 10 - 45 Units/L [facility] ([place]) Comment: Hemolysis present. ??Results may be affected. Moderately Hemolyzed Specimen Blood specimen (specimen) 03/12/2020 8:08 PM GUARD CAPTAIN 03/12/2020 8:13 PM GUARD CAPTAIN us Kevin COLUNGA LAB BLOOD ORDERABLES Final R esult [facility] ([place]) 1 [facility] [place] [address] * (ABNORMAL) CBC with auto differential (03/12/2020 8:08 PM GUARD CAPTAIN) WBC 13.3(H) 3.8 - 9.9 K/cumm [facility] ([place]) Hgb 15.1 11.9 - 15.5 g/dL [facility] ([place]) Hct 44.8 35.6 - 45.5 % [facility] ([place]) Plt 466(H) 150 - 400 K/cumm [facility] MPV 9.5 9.1 - 12.3 fL [facility] ([place]) RBC 5.11 3.90 - 5.20 M/cumm [facility] ([place]) MCV 87.7 81.3 - 96.4 fL [facility] ([place]) MCH 29.5 27.1 - 33.3 pg [facility] ([place]) MCHC 33.7 32.3 - 35.7 g/dL [facility] ([place]) RDW CV 12.9 11.1 - 14.9 % [facility] ([place]) RDW SD 41.4 35.7 - 48.1 fL [facility] ([place]) NRBC abs 0.00 0.00 - 0.01 K/cumm [facility] ([place]) Blood specimen (specimen) 03/12/2020 8:08 PM GUARD CAPTAIN 03/12/2020 8:13 PM GUARD CAPTAIN us Kevin COLUNGA LAB BLOOD ORDERABLES Final R esult [facility] ([place]) 1 [facility] [place] [employer] [place] [address] * (ABNORMAL) POCT glucose (03/12/2020 7:34 PM GUARD CAPTAIN) Glucose, POC 196(H) 71 - 98 mg/dL [facility] ([place]) Blood specimen (specimen) 03/12/2020 7:34 PM GUARD CAPTAIN 03/12/2020 7:34 PM GUARD CAPTAIN Notinfile Unknown LAB POCT ORDERABLES - DEVICE F inal Result Performing Organization Address City/[facility]/ZIP Co de Phone Number [facility] ([place]) 1 [facility] [place] [employer] [place] [address] documented in this encounter Visit Diagnoses Diagnosis Diabetic ketoacidosis without coma associated with type 1 diabetes mellitus (CMS/HCC) ([facility])- Primary Intractable vomiting, presence of nausea not specified, unspecified vomiting type DKA (diabetic ketoacidoses) Type II or unspecified type diabetes mellitus with ketoacidosis, not stated as uncontrolled Intractable vomiting Persistent vomiting Depression Depressive disorder, not elsewhere classified Diabetic gastroparesis (CMS/HCC) ([facility]) Type II or unspecified type diabetes mellitus with neurological manifestations, not stated as uncontrolled T1DM in Tachycardia Unspecified tachycardia documented in this encounter Admitting Diagnoses Diagnosis Intractable vomiting Persistent vomiting documented in this encounter Administered Medications Inactive Administered Medications - up to 3 most recent administrations Medication Order MAR Action Action Date Dose Rate Site dextrose (D10W) 10% bolus 1-500 mL 1-500 mL, intravenous, at 2-2,000 mL/hr, Administer over 15-30 Minutes, As needed, blood glucose less than 70 mg/dL, Starting on Wed03/13/20 at 0248, Dose as determined by GlucoStabilizer dka order. 25 gm = 250 mL 50 gm = 500 mL, Indications: HypoglyemiaIndications:Hypogl yemia dextrose 5% and sodium chloride 0.45% infusion (premix) 150 mL/hr, intravenous, Continuous, Starting on Wed03/13/20 at 1945 New Bag 03/16/2020 9:45 AM GUARD CAPTAIN 150 mL/hr 150 mL/hr New Bag 03/16/2020 2:21 AM GUARD CAPTAIN 150 mL/hr 150 mL/hr New Bag 03/15/2020 7:51 PM GUARD CAPTAIN 150 mL/hr 150 mL/hr enoxaparin (LOVENOX) syringe 40 mg 40 mg, subcutaneous, Daily (for enoxaparin), First dose on Wed03/13/20 at 2100, Indications: Deep Vein Thrombosis PreventionIndications:Deep Vein Thrombosis Prevention insulin regular (HumuLIN R, NovoLIN R) 100 Units in sodium chloride 0.9% 100 mL (1 Units/mL) infusion 0-30 Units/hr (0-30 mL/hr), 1 units/mL, intravenous, Titrated, Starting on Wed03/13/20 at 0249, Until 03/16/20 at 1756, Indications: Hyperglycemia, Desired Range (mg/dL): 130-180 general patients, Multiplier: 0.01, NON-WEIGHT BASED DOSING Adjust rate per GlucoStabilizer program for dka order When new IV tubing is used, completely prime the tubing. Once primed, waste an additional 20 ml of insulin infusion using the IV pump prior to connecting to patient., RoutineIndications:Hyperglycem ia Rate/Dose Change 03/16/2020 10:35 AM GUARD CAPTAIN 3 Units/hr 3 mL/hr Rate/Dose Change 03/16/2020 9:30 AM GUARD CAPTAIN 2.4 Units/hr 2.4 m L/hr Rate/Dose Change 03/16/2020 8:25 AM GUARD CAPTAIN 2.7 Units/hr 2.7 m L/hr insulin regular bolus from bag 1-10 Units 1-10 Units, intravenous, As needed, hyperglycemia, Starting on Wed03/13/20 at 0248, Bolus per GlucoStabilizer dka order., Indications: HyperglycemiaIndications:Hyperglycemia metoclopramide (REGLAN) injection 5 mg 5 mg, intravenous, Administer over 1 Minutes, Every 8 hours scheduled, First dose on Nurys 03/14/20 at 1400 Given 03/15/2020 5:20 AM GUARD CAPTAIN 5 mg Given 03/14/2020 10:14 PM GUARD CAPTAIN 5 mg Given 03/14/2020 4:44 PM GUARD CAPTAIN 5 mg metoprolol (LOPRESSOR) injection 5 mg 5 mg, intravenous, Administer over 1 Minutes, Once, On Wed03/13/20 at 0945, For 1 dose Given 03/13/2020 11:58 AM GUARD CAPTAIN 5 mg ondansetron (ZOFRAN) injection 4 mg 4 mg, intravenous, Administer over 2 Minutes, Every 6 hours PRN, nausea, vomiting, if not tolerating PO, Starting on Wed03/13/20 at 0509, Indications: Nausea and VomitingIndications:Nausea and Vomiting Given 03/13/2020 11:18 PM GUARD CAPTAIN 4 m g ondansetron ODT (ZOFRAN-ODT) disintegrating tablet 4 mg 4 mg, oral, Every 6 hours PRN, nausea, vomiting, Starting on Wed03/13/20 at 0509, Indications: Nausea and VomitingIndications:Nausea and Vomiting pantoprazole (PROTONIX) injection 40 mg 40 mg, intravenous, Administer over 2 Minutes, Daily, First dose on Wed03/13/20 at 1100, For IV Push administration for adults- 40 mg vial: add 10 mL of sodium chloride 0.9% to achieve a final concentration of 4 mg/mL, Indications: Treatment of Non-Bleeding Gastric DisorderIndications:Treatment of Non-Bleeding Gastric Disorder Given 03/14/2020 9:32 AM GUARD CAPTAIN 40 mg Given 03/13/2020 11:58 AM GUARD CAPTAIN 40 mg potassium chloride 20 mEq in sodium chloride 0.9% 250 mL IVPB 20 mEq, intravenous, at 130 mL/hr, Administer over 2 Hours, Every 2 hours, First dose on 03/16/20 at 0800, For 3 doses, Total dose = 60 mEq, Indications: hypokalemiaIndications:hypokalemia New Bag 03/16/2020 11:50 AM GUARD CAPTAIN 20 mE q 130 mL/hr New Bag 03/16/2020 9:45 AM GUARD CAPTAIN 20 mEq 130 mL/hr New Bag 03/16/2020 7:41 AM GUARD CAPTAIN 20 mEq 130 mL/hr potassium phosphates 29 mmol in sodium chloride 0.9% 500 mL IVPB 29 mmol, intravenous, at 84.9 mL/hr, Administer over 6 Hours, Once, On Nurys 03/14/20 at 1100, For 1 dose, For PERIPHERAL line administration Potassium phosphate 29 mmol ivpb run X 1 dose per pharmacy electrolyte replacement protocol for phosphorous +=2.3 on 03/14/2020 (Potassium = 3.4) New Bag 03/14/2020 11:22 AM GUARD CAPTAIN 29 mmol 84.9 mL/hr potassium phosphates 29 mmol in sodium chloride 0.9% 500 mL IVPB 29 mmol (rounded from 29.04 mmol = 0.4 mmol/kg ? 72.6 kg), intravenous, at 84.9 mL/hr, Administer over 6 Hours, Once, On 03/16/20 at 1400, For 1 dose, For Peripheral administration X 1 dose per pharmacy electrolyte replacement protocol for Phos+=1.9 on 03/16 sodium chloride 0.9% bolus 1,000 mL 1,000 mL, intravenous, at 1,000 mL/hr, Administer over 1 Hours, Once, On Wed03/12/20 at 2017, For 1 dose New 03/12/2020 8:48 PM GUARD CAPTAIN 1,000 mL 1000 mL/hr sodium chloride 0.9% bolus 1,000 mL 1,000 mL, intravenous, at 1,000 mL/hr, Administer over 1 Hours, Once, On Wed03/12/20 at 2149, For 1 dose New Bag 03/12/2020 10:33 PM GUARD CAPTAIN 1,000 mL 1000 mL/hr documented in this encounter Discontinued Medications Medication Sig Discontinue Reason Start Date End Da te ADMELOG U-100 INSULIN LISPRO SUBQ Inject 5 Units under the skin 3 (three) times a day before meals Therapy completed 03/13/2020 documented as of this encounter Active and Recently Administered Medications Times are shown in GUARD CAPTAIN. Scheduled Medication Order 03/14/2020 03/15/2020 03/16/2020 enoxaparin (LOVENOX) syringe 40 mg 40 mg, subcutaneous, Daily (for enoxaparin), First dose on Wed03/13/20 at 2100, Indications: Deep Vein Thrombosis Prevention 2045 (Not Given - Provider: Lior Nicole, MARY - Reason: Patient/family refused) 2049 (Not Given - Provider: Kita Harp RN - Reason: Patient/family refused) metoclopramide (REGLAN) injection 5 mg 5 mg, intravenous, Administer over 1 Minutes, Every 8 hours scheduled, First dose on Wed03/14/20 at 1400 0954 (Given - Provider: Ida Hair, MARY)1150 (Not Given - Provider: Ida Hair RN - Reason: Other - Comment: given at [phone] (Given - Provider: Ida Hair RN - Comment: last dose given @ [phone] (Given - Provider: iLor Nicole, RN) 0520 (Given - Provider: Lior Nicole, RN)1321 (Not Given - Provider: Mann Cantu RN - Reason: Patient/family refused - Comment: she agrred to take it at [phone] (Not Given - Provider: Kita Harp, MARY - Reason: Patient/family refused) [phone] (Not Given - Provider: Kita Harp RN - Reason: Patient/family refused) pantoprazole (PROTONIX) injection 40 mg 40 mg, intravenous, Administer over 2 Minutes, Daily, First dose on 03/13/20 at 1100, For IV Push administration for adults- 40 mg vial: add 10 mL of sodium chloride 0.9% to achieve a final concentration of 4 mg/mL, Indications: Treatment of Non-Bleeding Gastric Disorder 0932 (Given - Provider: Ida Hair RN) 0755 (Not Given - Provider: Mann Cantu, MARY - Reason: Patient/family refused) 0846 (Not Given - Provider: Karen Martinez RN - Reason: Patient/family refused) potassium chloride 20 mEq in sodium chloride 0.9% 250 mL IVPB (COMPLETED) 20 mEq, intravenous, at 130 mL/hr, Administer over 2 Hours, Every 2 hours, First dose on 03/16/20 at 0800, For 3 doses, Total dose = 60 mEq, Indications: hypokalemia 0741 (New Bag - Provider: Karen Martinez, MARY)0945 (New Bag - Provider: Karen Martinez, RN)1150 (New Bag - Provider: Karen Martinez RN) potassium phosphates 29 mmol in sodium chloride 0.9% 500 mL IVPB (COMPLETED) 29 mmol, intravenous, at 84.9 mL/hr, Administer over 6 Hours, Once, On Nurys 03/14/20 at 1100, For 1 dose, For PERIPHERAL line administration Potassium phosphate 29 mmol ivpb run X 1 dose per pharmacy electrolyte replacement protocol for phosphorous +=2.3 on 03/14/2020 (Potassium = 3.4) 1122 (New Bag - Provider: Ida Hair, MARY) potassium phosphates 29 mmol in sodium chloride 0.9% 500 mL IVPB 29 mmol (rounded from 29.04 mmol = 0.4 mmol/kg ? 72.6 kg), intravenous, at 84.9 mL/hr, Administer over 6 Hours, Once, On 03/16/20 at 1400, For 1 dose, For Peripheral administration X 1 dose per pharmacy electrolyte replacement protocol for Phos+=1.9 on 03/16 Continuous Medication Order 03/14/2020 03/15/2020 03/16/2020 dextrose 5% and sodium chloride 0.45% infusion (premix) 150 mL/hr, intravenous, Continuous, Starting on Wed03/13/20 at 1945 0445 (New Bag - Provider: Lior Nicole RN)1122 (New Bag - Provider: Ida Hair, MARY)1734 (New Bag - Provider: Ida Hair, MARY) 0025 (New Bag - Provider: Lior Nicole RN)0735 (New Bag - Provider: Mann Cantu, MARY)0855 (Rate/Dose Verify - Provider: Mann Cantu RN)1140 (Rate/Dose Verify - Provider: Mann Cantu, MARY)1321 (New Bag - Provider: Mann Cantu, MARY)1550 (Rate/Dose Verify - Provider: Mann Cantu, RN)1951 (New Bag - Provider: Kita Harp, MARY) 0221 (New Bag - Provider: Kita Harp RN)0945 (New Bag - Provider: Karen Martinez, MARY) insulin regular (HumuLIN R, NovoLIN R) 100 Units in sodium chloride 0.9% 100 mL (1 Units/mL) infusion 0-30 Units/hr (0-30 mL/hr), 1 units/mL, intravenous, Titrated, Starting on Wed03/13/20 at 0249, Until 03/16/20 at 1756, Indications: Hyperglycemia, Desired Range (mg/dL): 130-180 general patients, Multiplier: 0.01, NON-WEIGHT BASED DOSING Adjust rate per GlucoStabilizer program for dka order When new IV tubing is used, completely prime the tubing. Once primed, waste an additional 20 ml of insulin infusion using the IV pump prior to connecting to patient., Routine 0035 (Rate/Dose Change - Provider: Lior Nicole RN)0251 (Rate/Dose Change - Provider: Lior Nicole RN)0449 (Rate/Dose Change - Provider: Lior Nicole RN)0656 (Rate/Dose Change - Provider: Lior Nicole RN)0830 (New Bag - Provider: Ida Hair RN)0911 (Rate/Dose Change - Provider: Ida Hair RN)1118 (Rate/Dose Change - Provider: Ida Hair RN)1329 (Rate/Dose Change - Provider: Ida Hair RN)1426 (Rate/Dose Change - Provider: Ida Hair RN)1524 (Rate/Dose Change - Provider: Ida Hair RN)1633 (Rate/Dose Change - Provider: Ida Hair RN)1734 (Rate/Dose Change - Provider: Ida Hair RN)1838 (Rate/Dose Change - Provider: Ida Hair, RN)1939 (Rate/Dose Change - Provider: Lior Nicole RN)2046 (Rate/Dose Change - Provider: Lior Nicole RN)2202 (Rate/Dose Change - Provider: Lior Nicole RN)2317 (Rate/Dose Change - Provider: Lior Nicole RN) 0024 (Rate/Dose Change - Provider: Lior Nicole RN)0140 (Rate/Dose Change - Provider: Lior Nicole RN)0252 (Rate/Dose Change - Provider: Lior Nicole RN)0406 (Rate/Dose Change - Provider: Lior Nicole RN)0509 (Rate/Dose Change - Provider: Lior Nicole RN)0633 (Rate/Dose Change - Provider: Lior Nicole RN)0750 (Rate/Dose Change - Provider: Mann Cantu RN)0800 (Rate/Dose Change - Provider: Mann Cantu RN)0906 (Rate/Dose Change - Provider: Mann Cantu RN)1017 (Rate/Dose Change - Provider: Mann Cantu RN)1147 (Rate/Dose Change - Provider: Mann Cantu RN)1233 (Rate/Dose Change - Provider: Mann Cantu RN)1328 (Rate/Dose Change - Provider: Mann Cantu, RN)1436 (Rate/Dose Change - Provider: Mann Cantu RN)1555 (Rate/Dose Change - Provider: Mann Cantu RN)1653 (Rate/Dose Change - Provider: Mann Cantu, RN)1748 (Rate/Dose Change - Provider: Mann Cantu, RN)1846 (Rate/Dose Change - Provider: Mann Cantu RN)1947 (Rate/Dose Change - Provider: Kita Harp RN)2049 (Rate/Dose Change - Provider: Kita Harp RN)2203 (Rate/Dose Change - Provider: Kita Harp RN)2302 (Rate/Dose Change - Provider: Kita Harp RN) 0002 (Rate/Dose Change - Provider: Kita Harp RN)0057 (Rate/Dose Change - Provider: Kita Harp RN)0221 (Rate/Dose Change - Provider: Kita Harp RN)0333 (Rate/Dose Change - Provider: Kita Harp RN)0456 (Rate/Dose Change - Provider: Kita Harp RN)0621 (Rate/Dose Change - Provider: Kita Harp RN)0725 (Rate/Dose Change - Provider: Karen Martinez RN)0825 (Rate/Dose Change - Provider: Karen Martinez RN)0930 (Rate/Dose Change - Provider: Karen Martinez, MARY)1035 (Rate/Dose Change - Provider: Karen Martinez, MARY) PRN Medication Order 03/14/2020 03/15/2020 03/16/2020 acetaminophen (TYLENOL) tablet 650 mg 650 mg, oral, Every 4 hours PRN, 1st line for pain, Starting on Wed03/13/20 at 0509, Indications: Pain dextrose (D10W) 10% bolus 1-500 mL 1-500 mL, intravenous, at 2-2,000 mL/hr, Administer over 15-30 Minutes, As needed, blood glucose less than 70 mg/dL, Starting on Wed03/13/20 at 0248, Dose as determined by GlucoStabilizer dka order. 25 gm = 250 mL 50 gm = 500 mL, Indications: Hypoglyemia insulin regular bolus from bag 1-10 Units 1-10 Units, intravenous, As needed, hyperglycemia, Starting on Wed03/13/20 at 0248, Bolus per GlucoStabilizer dka order., Indications: Hyperglycemia ondansetron (ZOFRAN) injection 4 mg(Linked Group 1) 4 mg, intravenous, Administer over 2 Minutes, Every 6 hours PRN, nausea, vomiting, if not tolerating PO, Starting on Wed03/13/20 at 0509, Indications: Nausea and Vomiting 0933 (Not Given - Provider: Ida Hair, MARY - Reason: Patient/family refused) ondansetron ODT (ZOFRAN-ODT) disintegrating tablet 4 mg(Linked Group 1) 4 mg, oral, Every 6 hours PRN, nausea, vomiting, Starting on Wed03/13/20 at 0509, Indications: Nausea and Vomiting 0933 (See Alternative - Provider: Ida Hair, MAYR) Linked Groups Order Group 1: ondansetron ODT (ZOFRAN-ODT) disintegrating tablet 4 mgJump to med 4 mg, oral, Every 6 hours PRN, nausea, vomiting, Starting on Wed03/13/20 at 0509, Indications: Nausea and Vomiting Or ondansetron (ZOFRAN) injection 4 mgJump to med 4 mg, intravenous, Administer over 2 Minutes, Every 6 hours PRN, nausea, vomiting, if not tolerating PO, Starting on Wed03/13/20 at 0509, Indications: Nausea and Vomiting documented in this encounter Orders Medications Ordered That Evan ht Not Have Been Administered Count Last Ordered Date First Ordered Date potassium phosphates 29 mmol in sodium chloride 0.9% 500 mL IVPB 03/16/2020 acetaminophen (TYLENOL) tablet 650 mg 1 03/2020 dextrose (D10W) 10% bolus 1-500 mL 1 2019 dextrose 5% infusion 1 03/13/2020 enoxaparin (LOVENOX) syringe 40 mg 1 2019 insulin regular bolus from bag 1-10 Units 1 03/13/2020 LORazepam (ATIVAN) injection 1 mg 1 020 magnesium sulfate 2 g/50 mL in water (premix) 2 g 1 03/13/2020 ondansetron ODT (ZOFRAN-ODT) disintegrating tablet 4 mg 1 03/13/2020 oxyCODONE (ROXICODONE) tablet 5 mg 1 2019 potassium chloride 40 mEq in sodium chloride 0.9% 500 mL IVPB 1 03/13/2020 sodium chloride 0.9% infusion 1 03/13/2020 ondansetron (ZOFRAN) injection 4 mg 2 03/12 sodium chloride 0.9% bolus 1,000 mL 1 03/12 Lab Orders Without Results Count Last Ordered D ate First Ordered Date POCT GLUCOSE DEVICE 9 03/16/2020 03/13/20 20 IV Count Last Ordered Date First Orde red Date SALINE LOCK IV 1 03/12/2020 CORE MEASURES Count Last Ordered Date First Ord ered Date REASON FOR NO VTE PROPHYLAXIS AT ADMISSION 1 03/13/2020 ADT Patient Update Count Last Ordered Date Firs t Ordered Date ED IP DECISION TO ADMIT 1 03/13/2020 documented in this encounter Care Teams Jail Manager Relationship Specialty Start Date End Date Carrie Joseph PA [address] [place] [address] PCP - General 10/04/18 07/19/21 Warren Phillips MD [address] [place] [address] Consulting Physician Gastroenterology 02/16/19 documented as of this encounter
--- OUTSIDE RECORDS SUMMARY | 2024-05-10 18:39 | XMS_ITS | Encounter Summary ---
Author Organization [facility] Healthcare Address [address] [place] [address] Care Team Providers Care Senior Technical Architect Name Role Phone Carrie Joseph Primary Care Provider + Warren Phillips MD Unavailable [phone] Encounter Details Date Type Department Care Team (Late st Contact Info) Description 03/06/2020 Orders Only [facility] [address] [place] [address] Jerome Martinez MD [address] [facility] [address] [place] [address] Social History Tobacco Use Types Packs/Day Years [...] file 01/31 PHQ-2 Answer Date Recorded PHQ-2 Score 0 12/24/2018 Comments Yes Sex and Gender Information Value Date Recorded Sex Assigned at Not on file 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 OneTouch Verio test strips strip USE 1 STRIP TO CHECK GLUCOSE 4 TIMES DAILY 12/01/2019 01/29/2022 TechLITE Insulin Syr Half Unit 0.3 mL 31 gauge x 5/16 syringe USE ONE NEW SYRINGE 4 TIMES 02/21/2020 01/29/2022 added in this encounter Care Teams Senior Technical Architect Relationship Specialty Start Date End Date Carrie Joseph PA [address] [place] [address] PCP - General 10/04/18 07/19/21 Warren Phillips MD [address] [place] [address] Consulting Physician Gastroenterology 02/16/19 documented as of this encounter
--- OUTSIDE RECORDS SUMMARY | 2024-05-10 18:39 | XMS_ITS | Encounter Summary ---
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
--- OUTSIDE RECORDS SUMMARY | 2024-05-10 18:39 | XMS_ITS | Encounter Summary ---
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 Patient stated she has type 1 diabetes. Her LMP was 01/03/20-01/09/20. documented in this encounter Plan of Treatment Not on file documented as of this encounter Visit Diagnoses Not on filedocumented in this encounter Care Teams Medical Pathologist Relationship Specialty Start Date End Date Carrie Joseph PA [address] [place] [address] PCP - General 10/04/18 07/19/21 Warren Phillips MD [address] [place] [address] Consulting Physician Gastroenterology 02/16/19 documented as of this encounter
--- OUTSIDE RECORDS SUMMARY | 2024-05-10 18:39 | XMS_ITS | Encounter Summary ---
Author Organization [facility] Healthcare Address [address] [place] [address] Care Team Providers Care Oral Surgery Assistant Name Role Phone Carrie Joseph Primary Care Provider + Warren Phillips MD Unavailable Reason for Visit * Reason Comments Vomiting Nausea Encounter Details Date Type Department Care Team (Late st Contact Info) Description 06/15/2019 6:39 AM KIDS CLUB ATTENDANT - 06/17/2019 11:15 AM KIDS CLUB ATTENDANT Hospital Encounter [facility] ICU [address] [place] [address] Dre Mancuso MD [address] [place] [address] DR HOLLIS [address] [place] [id number] Sanjuanita Enamorado MD [address] [place] [address] [address] [place] [address] Ernestine Cisneros MD [address] [place] [address] [place] [address] Diabetic ketoacidosis with coma associated with diabetes mellitus due to underlying condition (CMS/HCC) (Primary Dx) Discharge Disposition: Left Against Medical Advice Social [...] on file Legal Sex Female 3:13 AM KIDS CLUB ATTENDANT Gender Identity Not on file Sexual Orientation Not on file documented as of this encounter Last Filed Vital Signs Vital Sign Reading Time Taken Comments Blood Pressure 116/75 06/17/2019 11:00 AM KIDS CLUB ATTENDANT Pulse 113 06/17/2019 11:00 AM KIDS CLUB ATTENDANT Temperature 36.8 ??C (98.3 ??F) 06/17/2019 10:[address] Respiratory Rate 19 06/17/2019 11:00 AM KIDS CLUB ATTENDANT Oxygen Saturation 100% 06/17/2019 11:00 AM KIDS CLUB ATTENDANT Inhaled Oxygen Concentration - - Weight 61 kg (134 lb 7.7 oz) 06/16/2019 6:00 AM KIDS CLUB ATTENDANT Height 154.9 cm (5' 0.98 ) 06/16/2019 12:[address] Body Mass Index 25.42 06/16/2019 6:00 AM KIDS CLUB ATTENDANT documented in this encounter Discharge Diagnoses Diagnosis 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 (HCC) - TYPE 1 DIABETES MELLITUS WITH DIABETIC AUTONOMIC (POLY)NEUROPATHY Type 1 diabetes mellitus with ketoacidosis without coma (HCC) - TYPE 1 DIABETES MELLITUS WITH KETOACIDOSIS WITHOUT COMA Dehydration - DEHYDRATION Gastroparesis - 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 (HCC) - [employer] (CURRENT) USE OF INSULIN Patient's other noncompliance with medication regimen - PATIENT'S OTHER NONCOMPLIANCE WITH MEDICATION REGIMEN alf (current) use of hormonal contraceptives - [facility] (CURRENT) USE OF HORMONAL CONTRACEPTIVES Other jail (current) drug therapy - OTHER [employer] (CURRENT) DRUG THERAPY documented in this encounter Discharge Summaries * Ernestine Cisneros MD - 06/17/2019 10:48 AM CST Against medical advice discharge summary 23-year-old female with past medical history of diabetes type 1, multiple admissions for DKA, noncompliance admitted for DKA. Patient decided to leave against medical advice (AMA) I went to talk with the patient and explained her regarding all risks of leaving against medical advice including . Patient voiced understanding. Patient states she follows up with overnight babysitter . Patient states she has enough insulin supply at home because she refilled her insulin about 5 days ago. Patient follows up with PCP DR.Jenny Joseph. I insisted patient to stay in the hospital until her blood sugars are controlled and anion gap is stable on subcutaneous insulin. Patient still decided to leave against medical advice. RN Harsha is at bedside during whole conversation. Patient is strongly educated to be compliant with her medical treatment. Patient voiced understanding CLUB ATTENDANT documented in this encounter Medications at Time of Discharge insulin lispro (HumaLOG) 100 unit/mL injection Inject under the skin 3 (three) times a day before meals Uses per sliding scale 1 unit per every 7-8 grams of carb max of 50 units per day ADMELOG U-100 INSULIN LISPRO SUBQ Inject 5 Units under the skin 3 (three) times a day before meals 03/13/2020 insulin glargine (LANTUS,BASAGLAR) 100 unit/mL (3 mL) insulin pen Inject 14 Units under the skin daily 11/16/2020 documented as of this encounter Discharge Disposition Disposition Code Departure Means Destination Left Against Medical Advice documented in this encounter Progress Notes * Jazmin Tate [facility] - 06/17/2019 7:31 AM CST Electrolyte monitoring performed by pharmacy on labs from 06/17 405 (date & time), Na+=135 K+=3.8 Mg+=2 Phos=2.5 Phos Nak 1 packet oral TID x 3 dose replacement ordered for phos=1.9-2.5. Pharmacy will continue tofollow daily. CLUB ATTENDANT * Lucinda Woodward RD - 06/16/2019 12:19 PM CST Nutrition Assessment Reason for Assessment: Screened at Nutrition Risk, Initial Nutrition Assessment and Consult/Referral Encounter Date: 06/16/19 12:19 PM Nutrition Assessment and Plan: Patient is a 23 y.o. female. Admit Dx: DIABETIC KETOACIDOSIS WITH COMA ASSOCIATED WITH DIABETES MELLITUS DUE TO UNDERLYING CONDITION. Admitted on 06/15/2019, current LOS is 1 days. Nutrition Screen What diet do you follow at home?: diabetic Have You Recently Lost Weight Without Trying?: No Poor Oral Intake for Four or More Days Prior to Admission: No Current diet order: Adult Diet Clear Liquid Pt intake na. PO intakes: na . Clear liquids 06/16. Wt Readings from Last 10 Encounters: 06/16/19 61 kg (134 lb 7.7 oz) 04/26/19 59.7 kg (131 lb 9.8 oz) 04/24/19 59.8 kg (131 lb 13.4 oz) 03/24/19 59 kg (130 lb 1.1 oz) 02/16/19 64.7 kg (142 lb 10.2 oz) 02/10/19 56.7 kg (125 lb) 11/10/18 59.3 kg (130 lb 11.7 oz) 11/08/18 56.7 kg (125 lb) 10/07/18 63.1 kg (139 lb 1.8 oz) 05/26/18 55.4 kg (122 lb 2.2 oz) Nutrition Diagnosis 1: Altered nutrition-related laboratory values Related to: Physiologic issue Evidenced by: Physical finding ?? Interventions: Education, nutrition, [place] diet preferences within the limits of nutrition care order ?? Monitoring and Evaluation: Diet advancement, Discharge plans, Labs, PO intake ?? Goals: Adequate nutrition to meet estimated needs by next assessment, Advance to oral intake as medically able ?? Recommendations: Increase diet as tolerated to consistent carbohydrate. ? Estimated needs: ?? Total Kcal/kg Estimated Needs : 1525 based on Kcal/k. Type of Weight Used for Estimated Kcals: Current ?? [facility] Total Energy Needs: 1568.4 kcal using Activity Factor: 1.2 ?? [facility] Total Energy Needs + Fever Factor: 1568.4 ?? Total Protein Estimated Needs (gm): 48.8 Protein Needs Based on g/k.8 Type of Weight Used for Estimated Protein : Current. ?? Total Fluid Estimated Needs: 1525 Fluid Needs Based on : 25 ml/kg. Objective Anthropometrics Weight: 61 kg (134 lb 7.7 oz) Admission Weight : 58.2 kg Weight Change: 2.80 kg (6.17 lbs) IBW/kg (Calculated) : 47.6 kg Height: 154.9 cm (5' 0.98 ) Weight in (lb) to have BMI = 25: 132 BMI (Calculated): 25.4 3 Day I/O Summary 06/14 1899 - 06/16 658 In: 5185 [I.V.:3385] Out: 2980 [Urine:2980] Temp: 37 ??C (98.6 ??F) Past Medical History: Diagnosis Date ??? Depression ??? Diabetes mellitus (CMS/HCC) ??? HX OTHER MEDICAL 2011 Diabetes mellitus, type 1 ??? Miscarriage Medications and Lab Review: Scheduled Meds: enoxaparin, 40 mg, subcutaneous, Daily-2100 potassium phosphate, 23 mmol, intravenous, Once Continuous Infusions: dextrose 5%, 100 mL/hr, Last Rate: 100 mL/hr (06/16/19 0643) insulin regular, 0-30 Units/hr, Last Rate: 2.7 Units/hr (06/16/19 1159) sodium chloride 0.45%, 50 mL/hr, Last Rate: 50 mL/hr (06/16/19 1201) Sodium Date Value Ref Range Status 06/16/2019 129 (L) 135 - 145 mmol/L Final Potassium, pl Date Value Ref Range Status 06/16/2019 3.8 3.3 - 4.9 mmol/L Final Comment: Moderately Hemolyzed Specimen. Hemolysis present. Results may be affected. BUN Date Value Ref Range Status 06/16/2019 4 (L) 8 - 25 mg/dL Final Creatinine Date Value Ref Range Status 06/16/2019 0.26 (L) 0.60 - 1.10 mg/dL Final Phosphorus, pl Date Value Ref Range Status 06/16/2019 2.2 (L) 2.3 - 4.5 mg/dL Final Albumin Date Value Ref Range Status 06/15/2019 4.5 3.5 - 5.0 g/dL Final Magnesium Date Value Ref Range Status 06/16/2019 1.5 1.4 - 2.5 mg/dL Final Calcium Date Value Ref Range Status 06/16/2019 9.0 8.5 - 10.3 mg/dL Final Lab Results Component Value Date HGBA1C 9.4 (H) 10/05/2018 POC Glucose: 151(06/16) Nursing Assessment: Bowel Sounds (All Quadrants): Active Emesis Assessment Emesis Color/Appearance: Green Teodoro Scale Score: 20 Skin Integrity: Intact Nutrition Follow-Up : 06/19/[address],LDN CLUB ATTENDANT * Shonda Marino NP - 06/16/2019 11:48 AM CST [facility] Hospitalist Service Progress Note Patient Name: Karina Fuchs Patient : 1995 Age/Sex: 23 y.o. female Room/Bed: [place] [address] Admission Date/Time: 06/15/2019 6:39 AM Date: 06/16/2019 Time: 11:49 AM Chief Complaint: nausea, vomiting Subjective: Today the patient is tired, does not really respond to questions when asked. Rolled over and covered up when I walked out of room. Allergies: No Known Allergies Current Medication List: Scheduled Meds:enoxaparin, 40 mg, subcutaneous, Daily-2100 potassium phosphate, 23 mmol, intravenous, Once Continuous Infusions:dextrose 5%, 100 mL/hr, Last Rate: 100 mL/hr (06/16/19 0643) insulin regular, 0-30 Units/hr, Last Rate: 1.4 Units/hr (06/16/19 1059) sodium chloride 0.45%, 50 mL/hr, Last Rate: 150 mL/hr (06/16/19 0643) PRN Meds:potassium chloride Objective: Vitals: Vitals: 06/16/19 0600 06/16/19 0700 06/16/19 0800 06/16/19 1000 BP: (!) 153/112 109/69 114/76 110/80 BP Location: Right arm Right arm Patient Position: Lying Lying Pulse: 123 103 98 95 Resp: 20 22 Temp: 36.7 ??C (98 ??F) TempSrc: Temporal SpO2: 100% 99% 100% 100% Weight: 61 kg (134 lb 7.7 oz) Height: Physical Exam: General: arousable to verbal stimuli but not cooperating, no acute distress Eyes: EOMI, ZORAIDA, sclera non icteric Neck: supple Pharynx:, mucosa dry Lungs: CTAB Heart: Tachycardic, RRS1S2 Abd: +BS, Non Tender, Non distended Lower Ext: No edema, active ROM Neuro: arousable to verbal stimuli, no focal deficits Musculoskeletal: no joint erythema, edema, tenderness Skin: warm and dry to palpation Labs: Lab Results Component Value Date WBC 17.9 (H) 06/15/2019 HGB 14.1 06/15/2019 HCT 43.0 06/15/2019 MCV 88.1 06/15/2019 LABPLAT 309 06/15/2019 Lab Results Component Value Date GLUCOSE 151 (H) 06/16/2019 CALCIUM 9.0 06/16/2019 SODIUM 129 (L) 06/16/2019 POTASSIUM 3.8 06/16/2019 CO2 18 (L) 06/16/2019 CHLORIDE 93 (L) 06/16/2019 BUNSER 4 (L) 06/16/2019 CREATININE 0.26 (L) 06/16/2019 Pertinent Labs: I have reviewed the pertinent labs. ASSESSMENT AND PLAN: Type 1 diabetes mellitus with ketoacidosis without coma (CMS/[facility]) Patient was admitted for episode of DKA. Continue on insulin drip per GlucoStabilizer protocol until anion gap normalizes. Monitor blood sugar levels hourly Monitor electrolytes and anion gap every 4 hours. Replete electrolytes as needed D5 at 100 ml/hr, 0.45% NS at 50ml/hr Reglan and Compazine as needed for nausea and vomiting Monitor strict I&Os ?? Sinus tachycardia Improved Due to volume depletion and severe dehydration secondary to DKA Continue IV fluids. ?? Diabetic Gastroparesis Nausea and vomiting Reglan and Compazine as needed ?? Noncompliance with medication regimen Patient with multiple DKA admissions. Usually leaves AMA on the same day or next day. Currently noncooperative MDM: Nadia Marino NP [facility] - Adult Hospitalist Service 06/16/2019 11:49 AM Cosigned by Sanjuanita Enamorado MD at 06/16/2019 4:19 PM KIDS CLUB ATTENDANT CLUB ATTENDANT CLUB ATTENDANT * Shonda Yoo RN - 06/16/2019 11:44 AM CST 06/16/19 1142 Information Information Obtained From Patient Referral Data Referral Source Self referral Referral Reason Discharge Planning Prior to Admission Primary Caregiver Self Support System Spouse/Significant Other Support system contact info (name, phone, availablity) boyfriend Home Care Services No Durable Medical Equipment None Living Arrangements Spouse/significant other Type of Residence Apartment Steps in home? 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 Independent with mobility and adls. No devices used. No barriers to returning to home at discharge. CLUB ATTENDANT * Shonda Yoo RN - 06/16/2019 11:41 AM CST 06/16/19 1141 Basic Mobility - 6 Click How much difficulty does the patient have: Turning over in bed 4 How much difficulty does the patient currently have: Sitting down and standing up from a chair witharms? 4 How much difficulty does the patient have: Moving from lying on back to sitting on the side of the bed? 4 How much difficulty does the patient have: Moving to and from a bed to a chair including wheelchair? 4 How much help does the patient currently need: Walk in hospital room? 4 How much help from another person does the patient currently need: Climbing 3-5 steps with a railing? 4 Total Score (range 6-24) 24 CLUB ATTENDANT * Pascual Espinal, [facility] - 06/16/2019 5:43 AM CST Electrolyte monitoring performed by pharmacy on labs from 06/16/2019 04:06, Na+=131 K+=3.4 Mg+=1.5 Phos=2.2 Magnesium sulfate 2 gm ivpb run X 1 dose per pharmacy electrolyte replacement protocol for magnesium +=1.5 on 06/16/2019 Potassium phosphate 23 mmol ivpb run X 1 dose per pharmacy electrolyte replacement protocol for Phosphorous+=2.2 on 06/16/2019 (Potassium= 3.4) replacement ordered. Pharmacy will continue to follow daily. CLUB ATTENDANT * Felipe Mayo, [facility] - 06/15/2019 8:01 PM CST An order to initiate electrolyte repletion [...] daily x3 days, then every other day. CLUB ATTENDANT * Yolette Whyte RN - 06/15/2019 3:34 PM CST Visited patient. Sleeping. Discussed blood sugars with Ida, her bedside nurse. CLUB ATTENDANT documented in this encounter H&P Notes * Gio Sewell MD - 06/15/2019 7:17 PM CST [facility] Adult Hospitalist Service History and Physical Patient Name: Karina Fuchs Patient : 1995 Age/Sex: 23 y.o. female Room/Bed: [place] [address] Admission Date/Time: 06/15/2019 6:39 AM Date: 06/15/2019 Time: 7:17 PM Primary Care Physician: KEANU Conway PCP Office Location: [address] [place] [address] PCP SUBJECTIVE: Patient is a 23 y.o. female with a PMHx of is uncontrolled, multiple episodes of DKA, noncompliancepresents to the ED with a chief complaint of nausea and vomiting. HPI Patient presented to the emergency department with complains of nausea and vomiting onset since this morning. Patient currently is lethargic, but arousable to verbal stimuli. She is not cooperating not providing with any history. The Per ED chart review patient denied being sick. Denies any fever or chills no abdominal pain. She denies missing any insulin doses. Per nurse's report patient had not been taking her Reglan as was prescribed. Also refusing taking Zofran. On further workup in the ED patient was diagnosed with another if episode of DKA. Drip and referredfor admission to the ICU for further management. Per chart review patient had multiple hospital admissions with recurrent DKA episodes. Most recently was admitted on 04/25 and left AMA on 04/26. Dose of her Lantus was increased to 24 units at that time. Review of Systems: Unable to obtain, patient not cooperating. Past Medical History: Past Medical History: Diagnosis Date ??? Depression ??? Diabetes mellitus (CMS/HCC) ??? HX OTHER MEDICAL 2011 Diabetes mellitus, type 1 ??? Miscarriage Past Surgical History: Past Surgical History: Procedure Laterality Date ??? ABDOMINAL SURGERY ??? SECTION, CLASSIC 2016 ??? TONSILLECTOMY Bilateral 2002 Family History: Family History Problem Relation Age of Onset ??? No Known Problems Mother ??? Autism Brother Social History: Social History Tobacco Use ??? Smoking status: Never Smoker ??? Smokeless tobacco: Never Used Substance Use Topics ??? Alcohol use: Not Currently Frequency: Monthly or less Allergies: No Known Allergies Home Medications: Medications Prior to Admission Medication Sig Dispense Refill Last Dose ??? ADMELOG U-100 INSULIN LISPRO SUBQ Inject 5 Units under the skin 3 (three) times a day before meals 06/14/2019 at 1200 ??? insulin glargine (LANTUS,BASAGLAR) 100 unit/mL (3 mL) insulin pen Inject 10 Units under the skin daily 06/14/2019 at 2100 ??? insulin lispro (HumaLOG) 100 unit/mL injection Inject under the skin 3 (three) times a day before meals Uses per sliding scale 1 unit per every 8 grams of carb Unknown at Unknown time Objective: Vitals: Patient Vitals for the past 24 hrs: Patient Vitals for the past 24 hrs: BP Temp Temp src Pulse Resp SpO2 Height Weight 06/15/19 1200 130/67 -- -- 122 16 100 % -- -- 06/15/19 1136 137/86 37.3 ??C (99.2 ??F) Temporal 124 16 100 % 154.9 cm (5' 1 ) 58.2 kg (128 lb 4.9oz) 06/15/19 1055 110/53 -- -- 112 -- 99 % -- -- 06/15/19 0918 117/70 -- -- -- -- -- -- -- 06/15/19 0838 140/92 -- -- -- 18 98 % -- -- 06/15/19 0735 -- -- -- 124 -- 99 % -- -- 06/15/19 0730 148/95 -- -- 124 -- 98 % -- -- 06/15/19 0725 151/89 -- -- (!) 126 -- 100 % -- -- 06/15/19 0720 -- -- -- 121 -- 99 % -- -- 06/15/19 0715 -- -- -- 122 -- 99 % -- -- 06/15/19 0710 -- -- -- 117 -- 98 % -- -- 06/15/19 0705 -- -- -- 119 -- 99 % -- -- 06/15/19 0700 -- -- -- -- -- 99 % -- -- 06/15/19 0655 -- -- -- -- -- 98 % -- -- 06/15/19 0650 -- -- -- 123 -- 99 % -- -- 06/15/19 0649 144/93 36.4 ??C (97.6 ??F) Oral 125 18 99 % 154.9 cm (5' 1 ) 59 kg (130 lb) 06/15/19 0645 144/93 -- -- 123 -- 98 % -- -- Physical Exam: General: Sick looking, somnolent, arousable to verbal stimuli but not cooperating Eyes: EOMI, ZORAIDA, sclare non icteric Neck: supple, trachea midline, Pharynx: tongue midline, mucosa dry, cracked lips Lungs CTA Heart: Tachycardic, RRS1S2 Abd: +BS, Non Tender, Non distended, No gross hepatomegaly Lower Ext: No gross edema Neuro: No facial asymmetry. Limited exam, patient not cooperating. Musculoskeletal: no gross joint erythema, edema, tenderness Genitourinary: No suprapubic tenderness Skin: warm and dry to palpation Laboratory Results: Recent Results (from the past 24 hour(s)) POCT glucose Collection Time: 06/15/19 6:44 AM Result Value Ref Range Glucose, POC 288 (H) 71 - 98 mg/dL CBC with auto differential Collection Time: 06/15/19 7:05 AM Result Value Ref Range WBC 17.9 (H) 3.8 - 9.9 K/cumm Hgb 14.1 11.9 - 15.5 g/dL Hct 43.0 35.6 - 45.5 % Plt 309 150 - 400 K/cumm MPV 10.6 9.1 - 12.3 fL RBC 4.88 3.90 - 5.20 M/cumm MCV 88.1 81.3 - 96.4 fL MCH 28.9 27.1 - 33.3 pg MCHC 32.8 32.3 - 35.7 g/dL RDW CV 13.4 11.1 - 14.9 % RDW SD 43.2 35.7 - 48.1 fL NRBC abs 0.00 0.00 - 0.01 K/cumm Comprehensive metabolic panel Collection Time: 06/15/19 7:05 AM Result Value Ref Range Sodium 134 (L) 135 - 145 mmol/L Potassium, pl 4.4 3.3 - 4.9 mmol/L Chloride 95 (L) 97 - 110 mmol/L CO2 12 (L) 22 - 32 mmol/L Anion gap 27 (H) 2 - 15 mmol/L BUN 12 8 - 25 mg/dL Creatinine 0.55 (L) 0.60 - 1.10 mg/dL Glucose 312 (H) 70 - 199 mg/dL Calcium 9.6 8.5 - 10.3 mg/dL Bilirubin, total 0.8 0.1 - 1.2 mg/dL Protein, pl 7.6 6.5 - 8.5 g/dL Albumin 4.5 3.5 - 5.0 g/dL Alk phos 93 40 - 130 Units/L ALT 13 7 - 45 Units/L AST 17 10 - 45 Units/L Phosphorus Collection Time: 06/15/19 7:05 AM Result Value Ref Range Phosphorus, pl 2.9 2.3 - 4.5 mg/dL Magnesium Collection Time: 06/15/19 7:05 AM Result Value Ref Range Magnesium 1.8 1.4 - 2.5 mg/dL Differential, auto Collection Time: 06/15/19 7:05 AM Result Value Ref Range Neutrophil abs 16.6 (H) 1.7 - 6.5 K/cumm Imm gran abs 0.1 0.0 - 0.1 K/cumm Lymphocyte abs 0.8 0.8 - 3.3 K/cumm Monocyte abs 0.4 0.2 - 0.8 K/cumm Eosinophil abs 0.0 0.0 - 0.5 K/cumm Basophil abs 0.0 0.0 - 0.1 K/cumm Neutrophil pct 92.7 % Imm gran pct 0.4 % Lymphocyte pct 4.3 % Monocyte pct 2.3 % Eosinophil pct 0.1 % Basophil pct 0.2 % eGFR Collection Time: 06/15/19 7:05 AM Result Value Ref Range GFR 133 mL/min/1.73 m2 Blood gas, arterial Collection Time: 06/15/19 7:12 AM Result Value Ref Range pH, Art POC 7.34 (L) 7.35 - 7.45 PCO2, Arterial 22 (L) 35 - 45 mmHg PO2, Arterial 115 (H) 83 - 108 mmHg HCO3 Art (Calculated) 12 (L) 20 - 30 mmol/L BE, art -12 mmol/L O2 Sat Art (Measured) 99 (H) 90 - 95 % Urinalysis reflex to microscopic and culture Urine Collection Time: 06/15/19 8:05 AM Result Value Ref Range Color, ur Yellow Yellow Clarity, ur Clear Clear Specific gravity, ur 1.026 (H) 1.010 - 1.025 pH, urine 5.0 Protein, ur ql Negative Negative Glucose, ur ql 3+ (A) Negative Ketones, ur 4+ (A) Negative Bilirubin, ur Negative Negative Blood, ur Negative Negative Urobilinogen, ur 0.2 mg/dL Nitrite, ur Negative Negative Leukocyte esterase, ur Negative Negative UA reflex comment Reflex conditions for microscopic UA and culture not met. hCG, urine, qualitative Collection Time: 06/15/19 8:05 AM Result Value Ref Range HCG, ur Negative Negative POCT hCG, urine Collection Time: 06/15/19 8:06 AM Result Value Ref Range HCG, ur, POC Negative Lot Number [id number] QC Backgroud Clear Acceptable QC Control Line Acceptable POCT glucose Collection Time: 06/15/19 8:55 AM Result Value Ref Range Glucose, POC 288 (H) 71 - 98 mg/dL POCT glucose Collection Time: 06/15/19 10:04 AM Result Value Ref Range Glucose, POC 209 (H) 71 - 98 mg/dL POCT glucose Collection Time: 06/15/19 11:15 AM Result Value Ref Range Glucose, POC 132 (H) 71 - 98 mg/dL POCT glucose Collection Time: 06/15/19 12:17 PM Result Value Ref Range Glucose, POC 141 (H) 71 - 98 mg/dL POCT glucose Collection Time: 06/15/19 1:58 PM Result Value Ref Range Glucose, POC 147 (H) 71 - 98 mg/dL Basic metabolic panel Collection Time: 06/15/19 2:43 PM Result Value Ref Range Sodium 131 (L) 135 - 145 mmol/L Potassium, pl 4.2 3.3 - 4.9 mmol/L Chloride 100 97 - 110 mmol/L CO2 13 (L) 22 - 32 mmol/L Anion gap 18 (H) 2 - 15 mmol/L BUN 11 8 - 25 mg/dL Creatinine 0.49 (L) 0.60 - 1.10 mg/dL Glucose 168 70 - 199 mg/dL Calcium 8.6 8.5 - 10.3 mg/dL Phosphorus Collection Time: 06/15/19 2:43 PM Result Value Ref Range Phosphorus, pl 2.3 2.3 - 4.5 mg/dL Magnesium Collection Time: 06/15/19 2:43 PM Result Value Ref Range Magnesium 1.7 1.4 - 2.5 mg/dL eGFR Collection Time: 06/15/19 2:43 PM Result Value Ref Range GFR 138 mL/min/1.73 m2 POCT glucose Collection Time: 06/15/19 3:17 PM Result Value Ref Range Glucose, POC 129 (H) 71 - 98 mg/dL POCT glucose Collection Time: 06/15/19 4:26 PM Result Value Ref Range Glucose, POC 129 (H) 71 - 98 mg/dL POCT glucose Collection Time: 06/15/19 5:24 PM Result Value Ref Range Glucose, POC 133 (H) 71 - 98 mg/dL POCT glucose Collection Time: 06/15/19 6:30 PM Result Value Ref Range Glucose, POC 105 (H) 71 - 98 mg/dL Radiology: No results found. EKG: Sinus tachycardia on monitor, heart rate 121 ASSESSMENT AND and: Principal Problem: Type 1 diabetes mellitus with ketoacidosis without coma (CMS/HCC) Patient was admitted for another episode of DKA. She received a 2 L of bolus with normal saline in the ED. Currently getting worked L of bolus of IVfluids. Start on insulin drip per GlucoStabilizer protocol. Monitor blood sugar levels hourly Monitor electrolytes and anion gap every 4 hours. The replete electrolytes as needed Will continue on insulin drip until anion gap is closed then will transition to subcutaneous insulin regimen. Will add D5 when blood sugars are less than 250 Will start on Reglan and Compazine as needed for nausea and vomiting Monitor strict I&Os Telemetry monitoring Active Problems: Dehydration Patient received 2 L of IV fluids with normal saline. Currently getting 3rd bag Monitor closely I&Os. Uncontrolled type 1 diabetes mellitus with hyperglycemia (CMS/HCC) Plan as above Sinus tachycardia Due to volume depletion and severe dehydration secondary to DKA Continue IV fluids. Nausea and vomiting Reglan and Compazine as needed Noncompliance with medication regimen Patient with multiple DKA admissions. Usually leaves AMA on the same day or next day. Currently noncooperative. GI and DVT prophylaxis Principal Problem: Type 1 diabetes mellitus with ketoacidosis without coma (CMS/HCC) Active Problems: Dehydration Uncontrolled type 1 diabetes mellitus with hyperglycemia (CMS/HCC) Sinus tachycardia Nausea and vomiting Noncompliance with medication regimen Full Code Expected LOS: More than 2 midnights MDM: High complexity Gio Sewell MD Internal Medicine - Hospitalist [facility] - Adult Hospitalist Service CC: KEANU Conway CLUB ATTENDANT documented in this encounter Nursing Notes * Kanchan Montalvo, RN - 06/17/2019 10:54 AM CST Patient demanding to leave AMA. Patient states, I feel better and want to go home. This RN requested patient to stay until the MD determined she was safe and stable to go home. Patient refusing to stay and continued to request to leave, AMA. Patient familiar with this term and the process. Patient has history of leaving this hospital AMA. Dr. Cisneros at bedside within 5 minutes of notification.Patient explained to Dr. Cisneros that she just refilled all her insulin on Wednesday and has all supplies at home to manage her diabetes. Patient also states that she will follow up with Dr. Sanches. Dr. Cisneros explained the dangers of DKA and that she is risking her health with leaving AMA. Dr. Cisneros explained the risks could include . The patient verbally acknowledged the risks she is taking and still wants to leave the hospital. CLUB ATTENDANT documented in this encounter ED Notes * Dre Mancuso MD - 06/15/2019 6:58 AM CSTAssociated Order(s): Critical Care Chief Complaint Patient presents with ??? Vomiting ??? Nausea ( 6:43 AM 06/15/2019) - 23 year old female with a h/o DM and DKA presents to the ED complaining of persistent vomiting thatbegan this morning. Patient denies any fever, chills, or abdominal pain. Patient denies missing anyinsulin doses. Per chart review, patient has many admissions to the hospital for DKA. Patient was admitted on 04/24 and discharged on 04/25. Patient then came back the same day she was discharged because symptoms worsened. She was admitted again. Patient's insulin regimen was changed to 24 units of lantus daily. Patient left AMA on 04/26. Past Medical History: Diagnosis Date ??? Depression ??? Diabetes mellitus (CMS/HCC) ??? HX OTHER MEDICAL 2011 Diabetes mellitus, type 1 ??? Miscarriage Past Surgical History: Procedure Laterality Date ??? ABDOMINAL SURGERY ??? SECTION, CLASSIC 2016 ??? TONSILLECTOMY Bilateral 2002 HOME MEDICATIONS : ADMELOG U-100 INSULIN LISPRO SUBQ insulin glargine (LANTUS,BASAGLAR) 100 unit/mL (3 mL) insulin pen insulin lispro (HumaLOG) 100 unit/mL injection metoclopramide (REGLAN) solution 5 mg/5 mL norethindrone-e.estradiol-iron (05/22) 1 mg-20 mcg (21)/75 mg (7) per tablet pantoprazole DR (PROTONIX) 40 mg EC tablet No Known Allergies Review of Systems Constitutional: Negative for chills, fatigue and fever. HENT: Negative for congestion, ear pain, rhinorrhea, sneezing and sore throat. Respiratory: Negative for cough, shortness of breath and wheezing. Cardiovascular: Negative for chest pain and palpitations. Gastrointestinal: Positive for nausea and vomiting. Negative for abdominal pain, constipation and diarrhea. Genitourinary: Negative for dysuria and frequency. Musculoskeletal: Negative for arthralgias, back pain, myalgias and neck pain. Skin: Negative for rash and wound. Neurological: Negative for dizziness, syncope, weakness, light-headedness and headaches. All other systems reviewed and are negative. Physical Exam Vitals signs and nursing note reviewed. Constitutional: Appearance: She is ill-appearing. HENT: Head: Normocephalic and atraumatic. Nose: Nose normal. Mouth/Throat: Mouth: Mucous membranes are moist. Eyes: Extraocular Movements: Extraocular movements intact. Pupils: Pupils are equal, round, and reactive to light. Neck: Musculoskeletal: Normal range of motion. Cardiovascular: Rate and Rhythm: Normal rate and regular rhythm. Heart sounds: Normal heart sounds. Pulmonary: Effort: Pulmonary effort is normal. Breath sounds: Normal breath sounds. Abdominal: General: Abdomen is flat. Musculoskeletal: Normal range of motion. Skin: General: Skin is warm. Capillary Refill: Capillary refill takes less than 2 seconds. Neurological: General: No focal deficit present. Mental Status: She is alert and oriented to person, place, and time. ED Course as of Jun 15 836 Time: 06/15 701 Value: BP: 144/93 Comment: Pre-hypertension/Hypertension: The patient has been informed that they may have pre-hypertension or Hypertension based on a blood pressure reading in the Emergency Department. I recommend that the patient call the primary care provider listed on their discharge instructions or a physician of their choice this week to arrange follow up for further evaluation of possible pre- hypertension or Hypertension. By: Annie Harrison Time: 06/15 830 Comment: Discussed patient's case with Dr. Romano, hospitalist, who accepts the patient for admission. By: Annie Harrison Vitals: 06/15/19 0720 06/15/19 0725 06/15/19 0730 06/15/19 0735 BP: 151/89 148/95 Pulse: 121 (!) 126 124 124 Resp: Temp: TempSrc: SpO2: 99% 100% 98% 99% Weight: Height: Labs Reviewed URINALYSIS AND REFLEX TO MICROSCOPIC AND CULTURE - Abnormal Result Value Color, ur Yellow Clarity, ur Clear Specific gravity, ur 1.026 (*) pH, urine 5.0 Protein, ur ql Negative Glucose, ur ql 3+ (*) Ketones, ur 4+ (*) Bilirubin, ur Negative Blood, ur Negative Urobilinogen, ur 0.2 Nitrite, ur Negative Leukocyte esterase, ur Negative [...] tendency for uric acid stone formation. Source: Nettie Frontback.Last revised 05-13-2017 BLOOD GAS, ARTERIAL - Abnormal pH, Art POC 7.34 (*) PCO2, Arterial 22 (*) PO2, Arterial 115 (*) HCO3 Art (Calculated) 12 (*) BE, art -12 O2 Sat Art (Measured) 99 (*) CBC WITH AUTO DIFFERENTIAL - Abnormal WBC 17.9 (*) Hgb 14.1 Hct 43.0 Plt 309 MPV 10.6 RBC 4.88 MCV 88.1 MCH 28.9 MCHC 32.8 RDW CV 13.4 RDW SD 43.2 NRBC abs 0.00 COMPREHENSIVE METABOLIC PANEL - Abnormal Sodium 134 (*) Potassium, pl 4.4 Chloride 95 (*) CO2 12 (*) Anion gap 27 (*) BUN 12 Creatinine 0.55 (*) Glucose 312 (*) Calcium 9.6 Bilirubin, total 0.8 Protein, pl 7.6 Albumin 4.5 Alk phos 93 ALT 13 AST 17 DIFFERENTIAL AUTO - Abnormal Neutrophil abs 16.6 (*) Imm gran abs 0.1 Lymphocyte abs 0.8 Monocyte abs 0.4 Eosinophil abs 0.0 Basophil abs 0.0 Neutrophil pct 92.7 Imm gran pct 0.4 Lymphocyte pct 4.3 Monocyte pct 2.3 Eosinophil pct 0.1 Basophil pct 0.2 POCT GLUCOSE DEVICE - Abnormal Glucose, POC 288 (*) POCT HCG, URINE - Normal HCG, ur, POC Negative Lot Number [id number] QC Backgroud Clear Acceptable QC Control Line Acceptable HCG, URINE, QUALITATIVE HCG, ur Negative PHOSPHORUS Phosphorus, pl 2.9 MAGNESIUM Magnesium 1.8 EGFR GFR 133 POCT GLUCOSE DEVICE No orders to display Critical Care Performed by: Dre Mancuso MD Authorized by: Dre Mancuso MD Critical care provider statement: As reflected in the history, physical exam, orders, notes, and/or MDM, I was personally present while the patient was critically ill and provided critical care services for approximately 60 minutes, excluding time involved in separately billable procedures. Critical care was necessary to treat or prevent imminent or life-threatening deterioration of the following condition(s): diabetic ketoacidosis Critical care was time spent by me providing the following: continuous telemetry and continuous pulse oximetry glycemic control I provided emergent necessary critical care medicine services to this patient. I ordered and reviewed test results and/or imaging studies. MDM IMPRESSION: 1. Diabetic ketoacidosis with coma associated with diabetes mellitus due to underlying condition ([facility]) ATTESTATIONS: This note is prepared by Ramila Harrison, acting as a scribe for Dre Mancuso MD. I electronically signed this note at 6:58 AM on 06/15/2019. I, Dre Mancuso MD, have personally performed the services described in the documentation , reviewed the documentation, as recorded by the scribe in my presence, and it accurately and completely records my words and actions. Dre Mancuso MD 06/15/19 0837 CLUB ATTENDANT * Charisma Stephens RN - 06/15/2019 6:47 AM CST Pt presents to the Ed with N/V. Family reports that pt was recently in DKA and admitted. Pt pt reports that she was woken up from her sleep with vomiting. Pt BS on arrival was 288. CLUB ATTENDANT documented in this encounter Miscellaneous Notes * Provider Query - Ernestine Cisneros MD - 06/17/2019 11:15 AM CST Please clarify the Present on Admission status and document in the medical record and on the form below. Diagnosis: Diabetic gastroparesis ____ Was present on admission ____ Was NOT present on admission ____ Clinically unable to determine if present on admission. Clinical Indicators/Treatments/Procedures: Admit with DM1 DKA, start on insulin drip. Started on reglan and compazine for nausea and vomiting.Progress note 06/16 notes diabetic gastroparesis. Provider Response: It is possible that patient may have diabetic gastroparesis due to underlying DM tpe 1 Use of terms such as likely, suspected, possible, or probable (associated with a specific diagnosisthat is being evaluated, monitored, or treated as if it exists) are acceptable and can be coded in the inpatient setting when documented at the time of discharge. This documentation will become part of the patient's medical record. Sincerely, [facility] Information Management CLUB ATTENDANT * Plan of Care - Kanchan Montalvo, MARY - 06/17/2019 11:08 AM CST Goals: Clinical Goals for the Shift: VSS, rest, comfort, safety, wean insulin gtt, decreased n/v Summary:Patient began improving, Patient decided to leave prematurely AMA CLUB ATTENDANT * Plan of Care - Kelsy Gooden RN - 06/17/2019 6:23 AM CST Goals: Clinical Goals for the Shift: VSS, rest, comfort, safety, wean insulin gtt, decreased n/v Summary: Has mostly slept throughout shift, is withdrawn & minimally interactive. Remains mostly tachycardic though rate is better controlled, afebrile, no c/o pain, assisted to BSC x3. IVF were changed, lantus given and insulin gtt D/C'd after 2000 labs. Insulin gtt was resumed this am after gap re- opened on 0400 labs, glucose trending up again, IVF increased at that time as well. Still having nausea, only one notable emesis this shift, has started slowly attempting ice chips last couple of hours, tolerating so far. Problem: Health Behavior: Goal: Understanding of discharge needs will improve Outcome: Progressing Problem: Fluid Volume: Goal: Ability to achieve a balanced intake and output will improve Outcome: Progressing Goal: Will maintain adequate fluid volume Outcome: Progressing Goal: Signs and symptoms of dehydration will decrease Outcome: Progressing Problem: Metabolic: Goal: Complications related to the disease process, condition or treatment will be avoided or minimized Outcome: Progressing Problem: Nutritional: Goal: Maintenance of adequate nutrition will improve Outcome: Progressing Goal: Maintenance of adequate weight for body size and type will improve Outcome: Progressing Problem: Physical Regulation: Goal: Will not experience complications related to bowel motility Outcome: Progressing Problem: Safety: Goal: Ability to remain free from injury will improve Outcome: Progressing Goal: Will remain free from falls Outcome: Progressing Problem: Self-Care: Goal: Ability to participate in self-care as condition permits will improve Outcome: Progressing Problem: Sensory: Goal: Pain level will decrease Outcome: Progressing Goal: Ability to develop a pain control plan will improve Outcome: Progressing Problem: Skin Integrity: Goal: Risk for impaired skin integrity will decrease Outcome: Progressing Problem: Tissue Perfusion: Goal: Risk factors for ineffective tissue perfusion will decrease Outcome: Progressing Problem: Activity: Goal: Ability to perform activities of daily living will improve Outcome: Not Progressing Goal: Will verbalize the importance of balancing activity with adequate rest periods Outcome: Not Progressing Problem: Lack of Knowledge: Goal: Ability to describe self-care measures that may prevent or decrease complications will improve Outcome: Not Progressing Goal: Knowledge of disease or condition will improve Outcome: Not Progressing Goal: Knowledge of the prescribed therapeutic regimen will improve Description Use of Medical Equipment and the Need for Diabetes Identification [facility] Outcome: Not Progressing Goal: Ability to manage health-related needs will improve Outcome: Not Progressing Goal: Ability to identify and alter actions that are detrimental to health will improve Outcome: Not Progressing Goal: Knowledge of prevention and discharge planning will improve Outcome: Not Progressing Problem: Metabolic: Goal: Ability to maintain appropriate glucose levels will improve Outcome: Not Progressing Goal: Diagnostic test results will improve Outcome: Not Progressing Problem: Health Behavior: Goal: Ability to state signs and symptoms to report to health care provider will improve Outcome: Not Progressing Problem: Physical Regulation: Goal: Ability to maintain clinical measurements within normal limits will improve Outcome: Not Progressing Problem: Infection Risk: Goal: Will remain free from infection Outcome: Not Progressing CLUB ATTENDANT * Plan of Salud Cheatham RN - 06/16/2019 3:23 PM CST Problem: Activity: Goal: Ability to perform activities of daily living will improve Outcome: Progressing Problem: Lack of Knowledge: Goal: Knowledge of the prescribed therapeutic regimen will improve Description Use of Medical Equipment and the Need for Diabetes Identification [employer] Outcome: Progressing Problem: Fluid Volume: Goal: Will maintain adequate fluid volume Outcome: Progressing Problem: Metabolic: Goal: Ability to maintain appropriate glucose levels will improve Outcome: Progressing Problem: Infection Risk: Goal: Will remain free from infection Outcome: Progressing Problem: Safety: Goal: Ability to remain free from injury will improve Outcome: Progressing Goal: Will remain free from falls Outcome: Progressing Problem: Self-Care: Goal: Ability to participate in self-care as condition permits will improve Outcome: Progressing Problem: Sensory: Goal: Pain level will decrease Outcome: Progressing Goal: Ability to develop a pain control plan will improve Outcome: Progressing Problem: Health Behavior: [...] condition will improve Outcome: Not Progressing Goal: Ability to manage health-related needs will improve Outcome: Not Progressing Goal: Ability to identify and alter actions that are detrimental to health will improve Outcome: Not Progressing Goal: Knowledge of prevention and discharge planning will improve Outcome: Not Progressing Problem: Fluid Volume: Goal: Ability to achieve a balanced intake and output will improve Outcome: Not Progressing Goal: Signs and symptoms of dehydration will decrease Outcome: Not Progressing Problem: Metabolic: Goal: Diagnostic test results will improve Outcome: Not Progressing Goal: Complications related to the disease process, condition or treatment will be avoided or minimized Outcome: Not Progressing Problem: Nutritional: Goal: Maintenance of adequate nutrition will improve Outcome: Not Progressing Goal: Maintenance of adequate weight for body size and type will improve Outcome: Not Progressing Problem: Physical Regulation: Goal: Will not experience complications related to bowel motility Outcome: Not Progressing Problem: Health Behavior: Goal: Ability to state signs and symptoms to report to health care provider will improve Outcome: Not Progressing Problem: Physical Regulation: Goal: Ability to maintain clinical measurements within normal limits will improve Outcome: Not Progressing Problem: Skin Integrity: Goal: Risk for impaired skin integrity will decrease Outcome: Not Progressing Problem: Tissue Perfusion: Goal: Risk factors for ineffective tissue perfusion will decrease Outcome: Not Progressing Goals: Clinical Goals for the Shift: control Nausea and vomitting with increased oral intake. Normalized electrolytes and glucose levels Summary: Remains on insulin drip. Clear liquid diet ordered but pt refuses intake. IV fluids of 1/2NS decreased to 50ml/hr with D5W at 100 ml/hr. Received Magnesium and K-phos runs. Awaiting lab results. Resting most of shift. Voiding well. Denies pain or discomfort but nausea persists CLUB ATTENDANT * Plan of Care - Nallely Chiu RN - 06/16/2019 6:50 AM CST Problem: Activity: Goal: Ability to perform activities of daily living will improve Outcome: Progressing Goal: Will verbalize the importance of balancing activity with adequate rest periods Outcome: Progressing Problem: Lack of Knowledge: Goal: Knowledge of the prescribed therapeutic regimen will improve Description Use of Medical Equipment and the Need for Diabetes Identification [facility] Outcome: Progressing Problem: Fluid Volume: Goal: Ability to achieve a balanced intake and output will improve Outcome: Progressing Goal: Will maintain adequate fluid volume Outcome: Progressing Goal: Signs and symptoms of dehydration will decrease Outcome: Progressing Problem: Metabolic: Goal: Ability to maintain appropriate glucose levels will improve Outcome: Progressing Goal: Diagnostic test results will improve Outcome: Progressing Problem: Nutritional: Goal: Maintenance of adequate weight for body size and type will improve Outcome: Progressing Problem: Health Behavior: Goal: Understanding of discharge needs will improve Outcome: Not Progressing Problem: Lack of Knowledge: Goal: Ability to describe self-care measures that may prevent or decrease complications will improve Outcome: Not Progressing Goal: Knowledge of disease or condition will improve Outcome: Not Progressing Goal: Ability to manage health-related needs will improve Outcome: Not Progressing Goal: Ability to identify and alter actions that are detrimental to health will improve Outcome: Not Progressing Goal: Knowledge of prevention and discharge planning will improve Outcome: Not Progressing Problem: Metabolic: Goal: Complications related to the disease process, condition or treatment will be avoided or minimized Outcome: Not Progressing Problem: Nutritional: Goal: Maintenance of adequate nutrition will improve Outcome: Not Progressing Problem: Physical Regulation: Goal: Will not experience complications related to bowel motility Outcome: Not Progressing Goals: Clinical Goals for the Shift: Improved labs and blood sugar-decreased N&V-stable vs-remain safe Summary:Continues with dry heaves whenever awake. Blood sugars WNL/ glucostabilizer. Voiding q 3-4 hours 400-700 ml each time. Low grade temp-max 99.8f. Heart rate occasionally goes below 100,.but increases to 150-160's with activity up to BSC. Refuses anything for nausea or pain. IV fluids continue at total of 250 ml/hr. Will continue with q 4hour BMPs. CLUB ATTENDANT * Plan of Care - Ida Hair RN - 06/15/2019 6:19 PM CST Problem: Activity: Goal: Ability to perform activities of daily living will improve Outcome: Progressing Goal: Will verbalize the importance of balancing activity with adequate rest periods Outcome: Progressing Problem: Lack of Knowledge: Goal: Ability to describe self-care measures that may prevent or decrease complications will improve Outcome: Progressing Goal: Knowledge of disease or condition will improve Outcome: Progressing Goal: Knowledge of the prescribed therapeutic regimen will improve Description Use of Medical Equipment and the Need for Diabetes Identification [facility] Outcome: Progressing Goal: Ability to [...] and type will improve Outcome: Progressing Problem: Health Behavior: Goal: Understanding of discharge needs will improve Outcome: Not Progressing Problem: Lack of Knowledge: Goal: Ability to identify and alter actions that are detrimental to health will improve Outcome: Not Progressing Goal: Knowledge of prevention and discharge planning will improve Outcome: Not Progressing Problem: Nutritional: Goal: Maintenance of adequate nutrition will improve Outcome: Not Progressing Problem: Physical Regulation: Goal: Will not experience complications related to bowel motility Outcome: Not Progressing Goals: Clinical Goals for the Shift: Vital signs stable. Normalize blood sugar and lab values with glucosestablilizer, NPO, no nausea or vomiting, comfort and safety, call for assist when needing to get upto bathroom, bed/exit alarm Summary: B/P has remained stable. Pt has remained tachycardic. Denies pain or discomfort. Pt deniesnausea, having intermittent episodes of retching with scant green emesis. Pt refuses Zofran stating It doesn't help. Continuing glucose stabilizer with lab work as ordered. Pt denies H/A but has ice pack on her forehead stating It feels good Pt voices understanding to call for assist when needing to get up to void. Gait steady when up. Bed exit alarm on. CLUB ATTENDANT documented in this encounter Plan of Treatment Not on file documented as of this encounter Procedures Procedure Name Priority Date/Time Associated Diagnosis Comments POCT GLUCOSE DEVICE Routine 06/17/2019 1 0:13 AM KIDS CLUB ATTENDANT POCT GLUCOSE DEVICE Routine 06/17/2019 9 :06 AM KIDS CLUB ATTENDANT EGFR Timed 06/17/2019 8:20 AM KIDS CLUB ATTENDANT BASIC METABOLIC PANEL Timed 06/17/2019 8:20 AM KIDS CLUB ATTENDANT POCT GLUCOSE DEVICE Routine 06/17/2019 8 :00 AM KIDS CLUB ATTENDANT POCT GLUCOSE DEVICE Routine 06/17/2019 6 :59 AM KIDS CLUB ATTENDANT POCT GLUCOSE DEVICE Routine 06/17/2019 6 :16 AM KIDS CLUB ATTENDANT POCT GLUCOSE DEVICE Routine 06/17/2019 5 :11 AM KIDS CLUB ATTENDANT EGFR Timed 06/17/2019 4:06 AM KIDS CLUB ATTENDANT DIFFERENTIAL AUTO Routine 06/17/2019 4:0 6 AM KIDS CLUB ATTENDANT CBC WITH AUTO DIFFERENTIAL Routine 06/17/2019 4:06 AM KIDS CLUB ATTENDANT SODIUM LEVEL Routine 06/17/2019 4:06 AM KIDS CLUB ATTENDANT POTASSIUM LEVEL Routine 06/17/2019 4:06 AM KIDS CLUB ATTENDANT PHOSPHORUS Routine 06/17/2019 4:06 AM KIDS CLUB ATTENDANT MAGNESIUM Routine 06/17/2019 4:06 AM KIDS CLUB ATTENDANT BASIC METABOLIC PANEL Timed 06/17/2019 4:06 AM KIDS CLUB ATTENDANT POCT GLUCOSE DEVICE Routine 06/17/2019 3 :11 AM KIDS CLUB ATTENDANT POCT GLUCOSE DEVICE Routine 06/17/2019 1 2:01 AM KIDS CLUB ATTENDANT EGFR Timed 06/16/2019 11:56 PM KIDS CLUB ATTENDANT BASIC METABOLIC PANEL Timed 06/16/2019 11:56 PM KIDS CLUB ATTENDANT POCT GLUCOSE DEVICE Routine 06/16/2019 1 0:51 PM KIDS CLUB ATTENDANT POCT GLUCOSE DEVICE Routine 06/16/2019 8 :44 PM KIDS CLUB ATTENDANT EGFR Timed 06/16/2019 7:56 PM KIDS CLUB ATTENDANT PHOSPHORUS Timed 06/16/2019 7:56 PM KIDS CLUB ATTENDANT MAGNESIUM Timed 06/16/2019 7:56 PM KIDS CLUB ATTENDANT BASIC METABOLIC PANEL Timed 06/16/2019 7:56 PM KIDS CLUB ATTENDANT POCT GLUCOSE DEVICE Routine 06/16/2019 6 :58 PM KIDS CLUB ATTENDANT POCT GLUCOSE DEVICE Routine 06/16/2019 6 :01 PM KIDS CLUB ATTENDANT POCT GLUCOSE DEVICE Routine 06/16/2019 5 :03 PM KIDS CLUB ATTENDANT POCT GLUCOSE DEVICE Routine 06/16/2019 4 :08 PM KIDS CLUB ATTENDANT EGFR Timed 06/16/2019 3:22 PM KIDS CLUB ATTENDANT BASIC METABOLIC PANEL Timed 06/16/2019 3:22 PM KIDS CLUB ATTENDANT POCT GLUCOSE DEVICE Routine 06/16/2019 2 :59 PM KIDS CLUB ATTENDANT POCT GLUCOSE DEVICE Routine 06/16/2019 2 :03 PM KIDS CLUB ATTENDANT POCT GLUCOSE DEVICE Routine 06/16/2019 1 :01 PM KIDS CLUB ATTENDANT EGFR Timed 06/16/2019 12:15 PM KIDS CLUB ATTENDANT BASIC METABOLIC PANEL Timed 06/16/2019 12:15 PM KIDS CLUB ATTENDANT POCT GLUCOSE DEVICE Routine 06/16/2019 1 1:57 AM KIDS CLUB ATTENDANT POCT GLUCOSE DEVICE Routine 06/16/2019 1 0:58 AM KIDS CLUB ATTENDANT POCT GLUCOSE DEVICE Routine 06/16/2019 9 :19 AM KIDS CLUB ATTENDANT EGFR Timed 06/16/2019 8:41 AM KIDS CLUB ATTENDANT BASIC METABOLIC PANEL Timed 06/16/2019 8:41 AM KIDS CLUB ATTENDANT POCT GLUCOSE DEVICE Routine 06/16/2019 7 :33 AM KIDS CLUB ATTENDANT POCT GLUCOSE DEVICE Routine 06/16/2019 6 :41 AM KIDS CLUB ATTENDANT POCT GLUCOSE DEVICE Routine 06/16/2019 5 :32 AM KIDS CLUB ATTENDANT POCT GLUCOSE DEVICE Routine 06/16/2019 4 :32 AM KIDS CLUB ATTENDANT EGFR Timed 06/16/2019 4:06 AM KIDS CLUB ATTENDANT PHOSPHORUS Timed 06/16/2019 4:06 AM KIDS CLUB ATTENDANT MAGNESIUM Timed 06/16/2019 4:06 AM [facility] ATTENDANT BASIC METABOLIC PANEL Timed 06/16/2019 4:06 AM [facility] ATTENDANT POCT GLUCOSE DEVICE Routine 06/16/2019 3 :23 AM [facility] ATTENDANT POCT GLUCOSE DEVICE Routine 06/16/2019 2 :17 AM [facility] ATTENDANT POCT GLUCOSE DEVICE Routine 06/16/2019 1 :18 AM [facility] ATTENDANT EGFR Timed 06/16/2019 12:04 AM [facility] ATTENDANT POCT GLUCOSE DEVICE Routine 06/16/2019 1 2:04 AM [facility] ATTENDANT PHOSPHORUS Timed 06/16/2019 12:04 AM [facility] ATTENDANT MAGNESIUM Timed 06/16/2019 12:04 AM [facility] ATTENDANT BASIC METABOLIC PANEL Timed 06/16/2019 12:04 AM [facility] ATTENDANT POCT GLUCOSE DEVICE Routine 06/15/2019 1 0:59 PM [facility] ATTENDANT POCT GLUCOSE DEVICE Routine 06/15/2019 9 :56 PM [facility] ATTENDANT LACTATE Routine 06/15/2019 8:28 PM [facility] ATTENDANT EGFR Routine 06/15/2019 8:28 PM [facility] ATTENDANT BETA-HYDROXYBUTYRATE Routine 06/15/2019 8:28 PM [facility] ATTENDANT PHOSPHORUS Routine 06/15/2019 8:28 PM [facility] ATTENDANT MAGNESIUM Routine 06/15/2019 8:28 PM [facility] ATTENDANT BASIC METABOLIC PANEL Routine 06/15/2019 8:28 PM [facility] ATTENDANT POCT GLUCOSE DEVICE Routine 06/15/2019 7 :47 PM [facility] ATTENDANT INFECTION PREVENTION MRSA ONLY (STAPHYLOCOCCUS AUREUS) PCR Routine 06/15/2019 6:39 PM [facility] ATTENDANT POCT GLUCOSE DEVICE Routine 06/15/2019 6 :30 PM [facility] ATTENDANT POCT GLUCOSE DEVICE Routine 06/15/2019 5 :24 PM [facility] ATTENDANT POCT GLUCOSE DEVICE Routine 06/15/2019 4 :26 PM [facility] ATTENDANT POCT GLUCOSE DEVICE Routine 06/15/2019 3 :17 PM [facility] ATTENDANT EGFR STAT 06/15/2019 2:43 PM [facility] ATTENDANT PHOSPHORUS STAT 06/15/2019 2:43 PM [facility] ATTENDANT MAGNESIUM STAT 06/15/2019 2:43 PM [facility] ATTENDANT BASIC METABOLIC PANEL STAT 06/15/2019 2:43 PM [facility] ATTENDANT POCT GLUCOSE DEVICE Routine 06/15/2019 1 :58 PM [facility] ATTENDANT POCT GLUCOSE DEVICE Routine 06/15/2019 1 2:17 PM [facility] ATTENDANT POCT GLUCOSE DEVICE Routine 06/15/2019 1 1:15 AM [facility] ATTENDANT POCT GLUCOSE DEVICE Routine 06/15/2019 1 0:04 AM [facility] ATTENDANT POCT GLUCOSE DEVICE Routine 06/15/2019 8 :55 AM [facility] ATTENDANT POCT HCG, URINE Routine 06/15/2019 8:06 AM [facility] ATTENDANT URINALYSIS AND REFLEX TO MICROSCOPIC AND CULTURE STAT 06/15/2019 8:05 AM [facility] ATTENDANT HCG, URINE, QUALITATIVE STAT 06/15/2019 8:05 AM [facility] ATTENDANT BLOOD GAS, ARTERIAL STAT 06/15/2019 7 :12 AM [facility] ATTENDANT EGFR STAT 06/15/2019 7:05 AM [facility] ATTENDANT DIFFERENTIAL AUTO STAT 06/15/2019 7:0 5 AM [facility] ATTENDANT CBC WITH AUTO DIFFERENTIAL STAT 06/15/2019 7:05 AM [facility] ATTENDANT PHOSPHORUS Routine 06/15/2019 7:05 AM [facility] ATTENDANT MAGNESIUM Routine 06/15/2019 7:05 AM [facility] ATTENDANT COMPREHENSIVE METABOLIC PANEL STAT 06/15/2019 7:05 AM [facility] ATTENDANT [place] [facility] C[facility] ILL/INJURED PATIENT INIT 30-74 MIN Routine 06/15/2019 6:58 AM [facility] ATTENDANT POCT GLUCOSE DEVICE Routine 06/15/2019 6 :44 AM [facility] ATTENDANT documented in this encounter Results * POCT glucose (06/17/2019 10:13 AM [facility] ATTENDANT) Glucose, POC 77 71 - 98 mg/dL TOMY SAHU ([place]) Blood specimen (specimen) 06/17/2019 10:13 AM [facility] ATTENDANT 06/17/2019 10:13 AM [facility] ATTENDANT us Ernestine Cisneros MD LAB POCT ORDERABLES - DE VICE Final Result TOMY SAHU ([place]) 1 [facility] Department [place] [address] * (ABNORMAL) POCT glucose (06/17/2019 9:06 AM [facility] ATTENDANT) Glucose, POC 127(H) 71 - 98 mg/dL TOMY SAHU ([place]) Blood specimen (specimen) 06/17/2019 9:06 AM [facility] ATTENDANT 06/17/2019 9:06 AM [facility] ATTENDANT us Ernestine Cisneros MD LAB POCT ORDERABLES - DE VICE Final Result Performing Organization Address [facility]/ZIP Co de Phone Number TOMY SAHU ([place]) 1 [facility] Department [place] [address] * eGFR (06/17/2019 8:20 AM [facility] ATTENDANT) [facility] eGFR 158 mL/min/1.7 3 m2 TOMY SAHU ([place]) Comment: Interpretive Data Reference Interval Normal ?>/= 90 mL/min/1.73m2 Mildly decreased* ? 60 - 89 mL/min/1.73m2 Mildly to moderately decreased ?45 - 59 mL/min/1.73m2 Moderately to severely decreased ??30 - 44 mL/min/1.73m2 Severely decreased ?15 - 29 mL/min/1.73m2 Kidney Failure ?< 15 ??mL/min/1.73m2 *Relative to young adult level If -Belgian multiply value by 1.16. Estimated glomerular filtration [...] was last reviewed 2015. Blood specimen (specimen) 06/17/2019 8:20 AM [facility] ATTENDANT 06/17/2019 9:07 AM [facility] ATTENDANT us Sanjuanita Enamorado MD LAB BLOOD ORDERABLES Final Re sult TOMY SAHU ([place]) 1 [facility] Department [place] [address] * (ABNORMAL) Basic metabolic panel (06/17/2019 8:20 AM [facility] ATTENDANT) Sodium 132(L) 135 - 145 mmol/L [facility] ([place]) Potassium, pl 3.3 3.3 - 4.9 mmol/L [facility] ([place]) Chloride 98 97 - 110 mmol/L [facility] ([place]) CO2 21(L) 22 - 32 mmol/L [facility] ([place]) Anion gap 14 2 - 15 mmol/L [facility] ([place]) BUN 6(L) 8 - 25 mg/dL [facility] ([place]) Creatinine 0.33(L) 0.60 - 1.10 mg/dL [facility] ([place]) Glucose 146 70 - 199 mg/dL [facility] ([place]) Comment: Interpretive Data Fasting [...] 2017. Calcium 8.7 8.5 - 10.3 mg/dL [facility] ([place]) Blood specimen (specimen) 06/17/2019 8:20 AM [facility] ATTENDANT 06/17/2019 9:07 AM [facility] ATTENDANT Sanjuanita Enamorado MD LAB BLOOD ORDERABLES Final Re sult [facility] ([place]) 1 [facility] Department [place] [address] * (ABNORMAL) POCT glucose (06/17/2019 8:00 AM [facility] ATTENDANT) Glucose, POC 144(H) 71 - 98 mg/dL [facility] ([place]) Blood specimen (specimen) 06/17/2019 8:00 AM [facility] ATTENDANT 06/17/2019 8:00 AM [facility] ATTENDANT us Ernestine Cisneros MD LAB POCT ORDERABLES - DE VICE Final Result Performing Organization Address City/[facility]/ZIP Co de Phone Number TOMY SAHU [facility]) 1 [facility] [place] [employer] [place] [address] * (ABNORMAL) POCT glucose (06/17/2019 6:59 AM [facility] ATTENDANT) Glucose, POC 159(H) 71 - 98 mg/dL [facility]) Blood specimen (specimen) 06/17/2019 6:59 AM [facility] ATTENDANT 06/17/2019 6:59 AM [facility] ATTENDANT us Ernestine Cisneros MD LAB POCT ORDERABLES - DE VICE Final Result Performing Organization Address [facility] Co de Phone Number TOMY SAHU ([place]) [address] [place] [address] [place] [place] [address] * (ABNORMAL) POCT glucose (06/17/2019 6:16 AM [facility] ATTENDANT) Glucose, POC 211(H) 71 - 98 mg/dL [facility] ([place]) Blood specimen (specimen) 06/17/2019 6:16 AM [facility] ATTENDANT 06/17/2019 6:16 AM [facility] ATTENDANT us Ernestine Cisneros MD LAB POCT ORDERABLES - DE VICE Final Result Performing Organization Address City/[facility]/ZIP Co de Phone Number TOMY SAHU [facility]) [address] [place] [address] [place] [address] * (ABNORMAL) POCT glucose (06/17/2019 5:11 AM [facility] ATTENDANT) Glucose, POC 272(H) 71 - 98 mg/dL [facility]) Blood specimen (specimen) 06/17/2019 5:11 AM [facility] ATTENDANT 06/17/2019 5:11 AM [facility] ATTENDANT us Ernestine Cisneros MD LAB POCT ORDERABLES - DE VICE Final Result Performing Organization Address [facility]/ZIP Co de Phone Number TOMY SAHU ([place]) 1 [facility] Department [place] [address] * eGFR (06/17/2019 4:06 AM [facility] ATTENDANT) Pathologist [facility] eGFR 145 mL/min/1.7 3 m2 TOMY SAHU ([place]) Comment: Interpretive Data Reference Interval Normal ?>/= 90 mL/min/1.73m2 Mildly decreased* ? 60 - 89 mL/min/1.73m2 Mildly to moderately decreased ?45 - 59 mL/min/1.73m2 Moderately to severely decreased ??30 - 44 mL/min/1.73m2 Severely decreased ?15 - 29 mL/min/1.73m2 Kidney Failure ?< 15 ??mL/min/1.73m2 *Relative to young adult level If -Belgian multiply value by 1.16. Estimated glomerular filtration [...] was last reviewed 2015. Blood specimen (specimen) 06/17/2019 4:06 AM [facility] ATTENDANT 06/17/2019 4:19 AM [facility] ATTENDANT us Sanjuanita Enamorado MD LAB BLOOD ORDERABLES Final Re sult TOMY SAHU ([place]) 1 [facility] Department [place] [address] * Differential, auto (06/17/2019 4:06 AM [facility] ATTENDANT) Neutrophil abs 5.1 1.7 - 6.5 K/cumm [facility] ([place]) Imm gran abs 0.0 0.0 - 0.1 K/cumm [facility] ([place]) Lymphocyte abs 2.8 0.8 - 3.3 K/cumm [facility] ([place]) Monocyte abs 0.8 0.2 - 0.8 K/cumm [facility] ([place]) Eosinophil abs 0.0 0.0 - 0.5 K/cumm [facility] ([place]) Basophil abs 0.0 0.0 - 0.1 K/cumm [facility] ([place]) Neutrophil pct 58.7 % [facility] ([place]) Comment: Interpretive [...] was last revised on 2017. Lymphocyte pct 32.0 % [facility] ([place]) Comment: Interpretive Data Percent cell count reference ranges are not reported, since discordance with absolute values may lead to misinterpretation of CBC data. Current Interpretive Data was last revised on 2017. Monocyte pct 8.6 % [facility] ([place]) Comment: Interpretive Data [...] last revised on 2017. Blood specimen (specimen) 06/17/2019 4:06 AM [facility] ATTENDANT 06/17/2019 4:19 AM [facility] ATTENDANT us Sanjuanita Enamorado MD LAB BLOOD ORDERABLES Final Re sult Performing Organization Address City/[facility]/ZIP Co de Phone Number TOMY SAHU ([place]) 1 [facility] [employer] [place] [employer] [place] [address] * (ABNORMAL) Basic metabolic panel (06/17/2019 4:06 AM [facility] ATTENDANT) Sodium 135 135 - 145 mmol/L [facility] ([place]) Potassium, pl 3.8 3.3 - 4.9 mmol/L [facility] ([place]) Chloride 94(L) 97 - 110 mmol/L [facility] ([place]) CO2 22 22 - 32 mmol/L [facility] ([place]) Anion gap 19(H) 2 - 15 mmol/L [facility] ([place]) BUN 5(L) 8 - 25 mg/dL [facility] ([place]) Creatinine 0.42(L) 0.60 - 1.10 mg/dL [facility] ([place]) Glucose 262(H) 70 - 199 mg/dL [facility] ([place]) [...] mg/dL [facility] ([place]) Blood specimen (specimen) 06/17/2019 4:06 AM [facility] ATTENDANT 06/17/2019 4:19 AM [facility] ATTENDANT us Sanjuanita Enamorado MD LAB BLOOD ORDERABLES Final Re sult Performing Organization Address City/[facility]/ZIP Co de Phone Number TOMY SAHU ([place]) 1 [facility] [place] [employer] [place] [address] * Magnesium (06/17/2019 4:06 AM [facility] ATTENDANT) Magnesium 2.0 1.4 - 2.5 mg/dL TOMY SAHU ([place]) Blood specimen (specimen) 06/17/2019 4:06 AM [facility] ATTENDANT 06/17/2019 4:19 AM [facility] ATTENDANT Gio Sewell MD LAB BLOOD ORDERABLES Final Re sult TOMY SAHU ([place]) 1 [facility] [place] [employer] [place] [address] * Potassium (06/17/2019 4:06 AM [facility] ATTENDANT) Pathologist [facility] Potassium, pl 3.8 3.3 - 4.9 mmol/L TOMY SAHU ([place]) Blood specimen (specimen) 06/17/2019 4:06 AM [facility] ATTENDANT 06/17/2019 4:19 AM [facility] ATTENDANT Gio Sewell MD LAB BLOOD ORDERABLES Final Re sult TOMY SAHU ([place]) 1 [facility] [place] [place] [address] * Phosphorus (06/17/2019 4:06 AM [facility] ATTENDANT) Pathologist [facility] Phosphorus, pl 2.5 2.3 - 4.5 mg/dL TOMY SAHU ([place]) Blood specimen (specimen) 06/17/2019 4:06 AM [facility] ATTENDANT 06/17/2019 4:19 AM [facility] ATTENDANT Gio Sewell MD LAB BLOOD ORDERABLES Final Re sult TOMY SAHU ([place]) 1 [facility] [place] [employer] [place] [address] * Sodium level (06/17/2019 4:06 AM [facility] ATTENDANT) Sodium 135 135 - 145 mmol/L [facility] ([place]) Blood specimen (specimen) 06/17/2019 4:06 AM [facility] ATTENDANT 06/17/2019 4:19 AM [facility] ATTENDANT us Gio Sewell MD LAB BLOOD ORDERABLES Final Re sult Performing Organization Address City/[facility]/ZIP Co de Phone Number [facility] ([place]) 1 [facility] for[MD] [place] [address] * (ABNORMAL) CBC with auto differential (06/17/2019 4:06 AM [facility] ATTENDANT) WBC 8.7 3.8 - 9.9 K/cumm [facility] ([place]) Hgb 14.8 11.9 - 15.5 g/dL [facility] ([place]) Hct 43.0 35.6 - 45.5 % [facility] ([place]) Plt 404(H) 150 - 400 K/cumm [facility] ([place]) MPV 8.7(L) 9.1 - 12.3 fL [facility] ([place]) RBC 5.18 3.90 - 5.20 M/cumm [facility] ([place]) MCV 83.0 81.3 - 96.4 fL [facility] ([place]) MCH 28.6 27.1 - 33.3 pg [facility] ([place]) MCHC 34.4 32.3 - 35.7 g/dL [facility] ([place]) RDW CV 12.8 11.1 - 14.9 % [facility] ([place]) RDW SD 38.8 35.7 - 48.1 fL [facility] ([place]) NRBC abs 0.00 0.00 - 0.01 K/cumm [facility] ([place]) Blood specimen (specimen) 06/17/2019 4:06 AM [facility] ATTENDANT 06/17/2019 4:19 AM [facility] ATTENDANT us Sanjuanita Enamorado MD LAB BLOOD ORDERABLES Final Re sult Performing Organization Address City/[facility]/ZIP Co de Phone Number [facility] ([place]) 1 [facility] [place] [address] * (ABNORMAL) POCT glucose (06/17/2019 3:11 AM [facility] ATTENDANT) Glucose, POC 207(H) 71 - 98 mg/dL TOMY SAHU ([place]) Blood specimen (specimen) 06/17/2019 3:11 AM [facility] ATTENDANT 06/17/2019 3:11 AM [facility] ATTENDANT us Ernestine Cisneros MD LAB POCT ORDERABLES - DE VICE Final Result [facility] ([place]) 1 [facility] [place] [employer] [place] [address] * (ABNORMAL) POCT glucose (06/17/2019 12:01 AM [facility] ATTENDANT) Pathologist [facility] Glucose, POC 175(H) 71 - 98 mg/dL [facility] ([place]) Blood specimen (specimen) 06/17/2019 12:01 AM [facility] ATTENDANT 06/17/2019 12:01 AM [facility] ATTENDANT us Ernestine Cisneros MD LAB POCT ORDERABLES - DE VICE Final Result Performing Organization Address City/[facility]/ZIP Co de Phone Number TOYM SAHU ([place]) 1 [facility] [address] [place] [address] * eGFR (06/16/2019 11:56 PM [facility] ATTENDANT) Pathologist [facility] eGFR 150 mL/min/1.7 3 m2 [facility] ([place]) Comment: Interpretive Data Reference Interval Normal ?>/= 90 mL/min/1.73m2 Mildly decreased* ? 60 - 89 mL/min/1.73m2 Mildly to moderately decreased ?45 - 59 mL/min/1.73m2 Moderately to severely decreased ??30 - 44 mL/min/1.73m2 Severely decreased ?15 - 29 mL/min/1.73m2 Kidney Failure ?< 15 ??mL/min/1.73m2 *Relative to young adult level If -Belgian multiply value by 1.16. Estimated glomerular filtration [...] was last reviewed 2015. Blood specimen (specimen) 06/16/2019 11:56 PM [facility] ATTENDANT 06/17/2019 12:15 AM [facility] ATTENDANT us Sanjuanita Enamorado MD LAB BLOOD ORDERABLES Final Re sult [facility] ([place]) 1 [facility] Department [place] [address] * (ABNORMAL) Basic metabolic panel (06/16/2019 11:56 PM [facility] ATTENDANT) Sodium 129(L) 135 - 145 mmol/L [facility] ([place]) Potassium, pl 3.8 3.3 - 4.9 mmol/L [facility] ([place]) Chloride 91(L) 97 - 110 mmol/L [facility] ([place]) CO2 24 22 - 32 mmol/L [facility] ([place]) Anion gap 14 2 - 15 mmol/L [facility] ([place]) BUN 3(L) 8 - 25 mg/dL [facility] ([place]) Creatinine 0.38(L) 0.60 - 1.10 mg/dL [facility] ([place]) Glucose 197 70 - 199 mg/dL [facility] mg/dL TOMY SAHU ([place]) Blood specimen (specimen) 06/16/2019 11:56 PM [facility] ATTENDANT 06/17/2019 12:15 AM [facility] ATTENDANT Sanjuanita Enamorado MD LAB BLOOD ORDERABLES Final Re sult TOMY SAHU ([place]) 1 [facility] [place] [employer] [place] [address] * (ABNORMAL) POCT glucose (06/16/2019 10:51 PM [facility] ATTENDANT) Glucose, POC 160(H) 71 - 98 mg/dL TOMY SAHU ([place]) Blood specimen (specimen) 06/16/2019 10:51 PM [facility] ATTENDANT 06/16/2019 10:51 PM [facility] ATTENDANT Ernestine Cisneros MD LAB POCT ORDERABLES - DE VICE Final Result Performing Organization Address [facility]/ZIP Co de Phone Number TOMY SAHU ([place]) 1 [facility] [address] [place] [address] * (ABNORMAL) POCT glucose (06/16/2019 8:44 PM [facility] ATTENDANT) Glucose, POC 112(H) 71 - 98 mg/dL [facility] SA[facility] ([place]) Blood specimen (specimen) 06/16/2019 8:44 PM [facility] ATTENDANT 06/16/2019 8:44 PM [facility] ATTENDANT Ernestine Cisneros MD LAB POCT ORDERABLES - DE VICE Final Result Performing Organization Address City/[facility]/ZIP Co de Phone Number TOMY SAHU ([place]) 1 [facility] [address] [place] [address] * eGFR (06/16/2019 7:56 PM [facility] ATTENDANT) eGFR 159 mL/min/1.7 3 m2 TOMY SAHU ([place]) Comment: Interpretive Data Reference Interval Normal ?>/= 90 mL/min/1.73m2 Mildly decreased* ? 60 - 89 mL/min/1.73m2 Mildly to moderately decreased ?45 - 59 mL/min/1.73m2 Moderately to severely decreased ??30 - 44 mL/min/1.73m2 Severely decreased ?15 - 29 mL/min/1.73m2 Kidney Failure ?< 15 ??mL/min/1.73m2 *Relative to young adult level If -Belgian multiply value by 1.16. Estimated glomerular filtration [...] was last reviewed 2015. Blood specimen (specimen) 06/16/2019 7:56 PM [facility] ATTENDANT 06/16/2019 8:00 PM [facility] ATTENDANT us Sanjuanita Enamorado MD LAB BLOOD ORDERABLES Final Re sult [facility] ([place]) 1 [facility] Department of Laboratories [place], [place] [id number] * Phosphorus (06/16/2019 7:56 PM [facility] ATTENDANT) Phosphorus, pl 2.4 2.3 - 4.5 mg/dL [facility] ([place]) Blood specimen (specimen) 06/16/2019 7:56 PM [facility] ATTENDANT 06/16/2019 8:00 PM [facility] ATTENDANT Sanjuanita Enamorado MD LAB BLOOD ORDERABLES Final Re sult TOMY SAHU ([place]) 1 [facility] [place] [employer] [place] [address] * Magnesium (06/16/2019 7:56 PM [facility] ATTENDANT) Magnesium 1.8 1.4 - 2.5 mg/dL [facility] ([place]) Blood specimen (specimen) 06/16/2019 7:56 PM [facility] ATTENDANT 06/16/2019 8:00 PM [facility] ATTENDANT Sanjuanita Enamorado MD LAB BLOOD ORDERABLES Final Re sult Performing Organization Address [facility]/ZIP Co de Phone Number TOMY SAHU ([place]) 1 [facility] [place] [employer] [place] [address] * (ABNORMAL) Basic metabolic panel (06/16/2019 7:56 PM [facility] ATTENDANT) Sodium 127(L) 135 - 145 mmol/L [facility] ([place]) Potassium, pl 3.0(C) 3.3 - 4.9 mmol/L [facility] ([place]) Comment:Critical Result call ed to and read back by Akua Paulson(ICU), DATE: 2019-06-16 20:21:52 BY: Maira Koehler Chloride 92(L) 97 - 110 mmol/L [facility] ([place]) CO2 24 22 - 32 mmol/L [facility] ([place]) Anion gap 12 2 - 15 mmol/L [facility] ([place]) BUN 3(L) 8 - 25 mg/dL [facility] ([place]) Creatinine 0.32(L) 0.60 - 1.10 mg/dL [facility] ([place]) Glucose 156 70 - 199 mg/dL [facility] ([place]) [...] 8.3(L) 8.5 - 10.3 mg/dL [facility] ([place]) Blood specimen (specimen) 06/16/2019 7:56 PM [facility] ATTENDANT 06/16/2019 8:00 PM [facility] ATTENDANT Sanjuanita Enamorado MD LAB BLOOD ORDERABLES Final Re sult Performing Organization Address City/[facility]/ZIP Co de Phone Number TOMY SAHU ([place]) 1 [facility] [address] [place] [address] * (ABNORMAL) POCT glucose (06/16/2019 6:58 PM [facility] ATTENDANT) Glucose, POC 166(H) 71 - 98 mg/dL [facility] ([place]) Blood specimen (specimen) 06/16/2019 6:58 PM [facility] ATTENDANT 06/16/2019 6:58 PM [facility] ATTENDANT Sanjuanita Enamorado MD LAB POCT ORDERABLES - DEVICE Final Result Performing Organization Address [facility] Co de Phone Number TOMY SAHU ([place]) 1 [facility] [address] [place] [address] * (ABNORMAL) POCT glucose (06/16/2019 6:01 PM [facility] ATTENDANT) Glucose, POC 127(H) 71 - 98 mg/dL [facility] ([place]) Blood specimen (specimen) 06/16/2019 6:01 PM [facility] ATTENDANT 06/16/2019 6:01 PM [facility] ATTENDANT Sanjuanita Enamorado MD LAB POCT ORDERABLES - DEVICE Final Result Performing Organization Address City/[facility]/ZIP Co de Phone Number TOMY SAHU ([place]) 1 [facility] [address] [place] [address] * (ABNORMAL) POCT glucose (06/16/2019 5:03 PM [facility] ATTENDANT) Glucose, POC 116(H) 71 - 98 mg/dL [facility] ([place]) Blood specimen (specimen) 06/16/2019 5:03 PM [facility] ATTENDANT 06/16/2019 5:03 PM [facility] ATTENDANT Sanjuanita Enamorado MD LAB POCT ORDERABLES - DEVICE Final Result Performing Organization Address [facility]/ZIP Co de Phone Number TOMY SAHU ([place]) 1 [facility] [place] [employer] [place] [address] * (ABNORMAL) POCT glucose (06/16/2019 4:08 PM [facility] ATTENDANT) Pathologist [facility] Glucose, POC 99(H) 71 - 98 mg/dL [facility] ([place]) Blood specimen (specimen) 06/16/2019 4:08 PM [facility] ATTENDANT 06/16/2019 4:08 PM [facility] ATTENDANT Sanjuanita Enamorado MD LAB POCT ORDERABLES - DEVICE Final Result Performing Organization Address [facility] de Phone Number TOMY SAHU ([place]) 1 [place] [address] * eGFR (06/16/2019 3:22 PM [facility] ATTENDANT) Pathologist [facility] eGFR 158 mL/min/1.7 3 m2 [facility] ([place]) Comment: Interpretive Data Reference Interval Normal ?>/= 90 mL/min/1.73m2 Mildly decreased* ? 60 - 89 mL/min/1.73m2 Mildly to moderately decreased ?45 - 59 mL/min/1.73m2 Moderately to severely decreased ??30 - 44 mL/min/1.73m2 Severely decreased ?15 - 29 mL/min/1.73m2 Kidney Failure ?< 15 ??mL/min/1.73m2 *Relative to young adult level If -Belgian multiply value by 1.16. Estimated glomerular filtration [...] was last reviewed 2015. Blood specimen (specimen) 06/16/2019 3:22 PM [facility] ATTENDANT 06/16/2019 3:29 PM [facility] ATTENDANT us Gio Sewell MD LAB BLOOD ORDERABLES Final Re sult [facility] ([place]) 1 [facility] [place] [address] * (ABNORMAL) Basic metabolic panel (06/16/2019 3:22 PM [facility] ATTENDANT) Sodium 131(L) 135 - 145 mmol/L [facility] ([place]) Potassium, pl 3.3 3.3 - 4.9 mmol/L [facility] ([place]) Chloride 96(L) 97 - 110 mmol/L [facility] ([place]) CO2 24 22 - 32 mmol/L [facility] ([place]) Anion gap 11 2 - 15 mmol/L [facility] ([place]) BUN 3(L) 8 - 25 mg/dL [facility] ([place]) Creatinine 0.33(L) 0.60 - 1.10 mg/dL [facility] ([facility]) Glucose 123 70 - 199 mg/dL [facility] ([place]) Comment: Interpretive Data Fasting [...] 8.3(L) 8.5 - 10.3 mg/dL [facility] ([place]) Blood specimen (specimen) 06/16/2019 3:22 PM [employer] 06/16/2019 3:29 PM [employer] ATTEND[employer] us Gio Sewell MD LAB BLOOD ORDERABLES Final Re sult Performing Organization Address City/[facility]/ZIP Co de Phone Number TOMY SAHU (VASHTI) [address] [facility] [place] [employer] [place] [address] * (ABNORMAL) POCT glucose (06/16/2019 2:59 PM [employer] ATTENDANT) Glucose, POC 128(H) 71 - 98 mg/dL [facility] ([place]) Blood specimen (specimen) 06/16/2019 2:59 PM [employer] ATTEND[employer] 06/16/2019 2:59 PM [employer] ATTENDANT us Sanjuanita Enamorado MD LAB POCT ORDERABLES - DEVICE Final Result Performing Organization Address [facility] Co de Phone Number TOMY SAHU (VASHTI) [address] [facility] [place] [employer] [place] [address] * (ABNORMAL) POCT glucose (06/16/2019 2:03 PM [employer]) Glucose, POC 125(H) 71 - 98 mg/dL [facility] ([place]ASHTI) Blood specimen (specimen) 06/16/2019 2:03 PM [employer] ATTEND[employer] 06/16/2019 2:03 PM [employer]END[employer] Sanjuanita Enamorado MD LAB POCT ORDERABLES - DEVICE Final Result Performing Organization Address City/[facility]/ZIP Co de Phone Number TOMY SAHU (VASHTI) [address] [facility] [place] [employer] [place] [address] * (ABNORMAL) POCT glucose (06/16/2019 1:01 PM [employer]) Glucose, POC 133(H) 71 - 98 mg/dL TOM[facility] LUIS ALBERTO (VASHTI) Blood specimen (specimen) 06/16/2019 1:01 PM [facility] [employer] ATTENDANT 06/16/2019 1:01 PM [employer] ATTENDANT Sanjuanita Enamorado MD LAB POCT ORDERABLES - DEVICE Final Result TOMY SAHU (SEGUIN) 1 [facility] Department [place] [address] * eGFR (06/16/2019 12:15 PM [employer]IDS [employer] ATTENDANT) eGFR 159 mL/min/1.7 3 m2 TOMY SAHU (VASHTI) Comment: Interpretive Data Reference Interval Normal ?>/= 90 mL/min/1.73m2 Mildly decreased* ? 60 - 89 mL/min/1.73m2 Mildly to moderately decreased ?45 - 59 mL/min/1.73m2 Moderately to severely decreased ??30 - 44 mL/min/1.73m2 Severely decreased ?15 - 29 mL/min/1.73m2 Kidney Failure ?< 15 ??mL/min/1.73m2 *Relative to young adult level If -Belgian multiply value by 1.16. Estimated glomerular filtration [...] was last reviewed 2015. Blood specimen (specimen) 06/16/2019 12:15 PM [facility] [employer] ATTENDANT 06/16/2019 12:28 PM KIDS CL[employer] ATTENDANT Gio Sewell MD LAB BLOOD ORDERABLES Final Re sult TOMY SAHU (VASHTI) 1 [facility] [employer] [place] [place] [address] * (ABNORMAL) Basic metabolic panel (06/16/2019 12:15 PM [facility]IDS CL[facility] ATTENDANT) Sodium 133(L) 135 - 145 mmol/L [facility] (VASHTI) Potassium, pl 3.3 3.3 - 4.9 mmol/L [facility] ([place]HT[place]) Chloride 95(L) 97 - 110 mmol/L [facility] ([place]HT[place]) CO2 22 22 - 32 mmol/L [facility] ([place]HTI) Anion gap 16(H) 2 - 15 mmol/L [facility] ([place]HT[place]) BUN 4(L) 8 - 25 mg/dL [facility] ([place]HTI) Creatinine 0.32(L) 0.60 - 1.10 mg/dL [facility] ([place]HTI) Glucose 161 70 - 199 mg/dL [facility] ([place]HT[place]) [...] mg/dL [facility] ([place]HTI) Blood specimen (specimen) 06/16/2019 12:15 PM [facility] [employer] ATTENDANT 06/16/2019 12:28 PM [employer] ATTENDANT Gio Sewell MD LAB BLOOD ORDERABLES Final Re sult TOMY SAHU (VASHTI) 1 [facility] for[MD] [place] [address] * (ABNORMAL) POCT glucose (06/16/2019 11:57 AM [facility] ATTENDANT) Glucose, POC 151(H) 71 - 98 mg/dL TOMY SAHU (VASHTI) Blood specimen (specimen) 06/16/2019 11:57 AM [facility] ATTENDANT 06/16/2019 11:57 AM K[employer] CL[employer] ATTENDANT us Sanjuanita Enamorado MD LAB POCT ORDERABLES - DEVICE Final Result TOMY SAHU (VASHTI) 1 [facility] [place] [employer] [place] [address] * (ABNORMAL) POCT glucose (06/16/2019 10:58 AM [facility] [employer] ATTENDANT) Glucose, POC 131(H) 71 - 98 mg/dL TOMY SAHU (SEGUIN) Blood specimen (specimen) 06/16/2019 10:58 AM [employer] ATTENDANT 06/16/2019 10:58 AM K[employer] CL[employer] ATTENDANT us Sanjuanita Enamorado MD LAB POCT ORDERABLES - DEVICE Final Result Performing Organization Address City/[facility]/ZIP Co de Phone Number TOMY SAHU (SEGUIN) 1 [facility] [place] [employer] [place] [address] * (ABNORMAL) POCT glucose (06/16/2019 9:19 AM [facility] [employer] ATTENDANT) Glucose, POC 106(H) 71 - 98 mg/dL TOMY SAHU (SEGUIN) Blood specimen (specimen) 06/16/2019 9:19 AM [facility] CL[employer] ATTENDANT 06/16/2019 9:19 AM [facility] ATTENDANT Sanjuanita Enamorado MD LAB POCT ORDERABLES - DEVICE Final Result Performing Organization Address City/[facility]/ZIP Co de Phone Number TOMY SAHU (VASHTI) 1 [facility] [place] [employer] [place] [address] * eGFR (06/16/2019 8:41 AM [facility] ATTENDANT) eGFR 170 mL/min/1.7 3 m2 [facility] (V[place]HTI) Comment: Interpretive Data Reference Interval Normal ?>/= 90 mL/min/1.73m2 Mildly decreased* ? 60 - 89 mL/min/1.73m2 Mildly to moderately decreased ?45 - 59 mL/min/1.73m2 Moderately to severely decreased ??30 - 44 mL/min/1.73m2 Severely decreased ?15 - 29 mL/min/1.73m2 Kidney Failure ?< 15 ??mL/min/1.73m2 *Relative to young adult level If -Belgian multiply value by 1.16. Estimated glomerular filtration [...] was last reviewed 2015. Blood specimen (specimen) 06/16/2019 8:41 AM [facility] ATTENDANT 06/16/2019 8:47 AM K[employer] CL[employer] ATTENDANT us Gio Sewell MD LAB BLOOD ORDERABLES Final Re sult [facility] (SEGUIN) 1 [facility] Department [place] [address] * (ABNORMAL) Basic metabolic panel (06/16/2019 8:41 AM [facility] ATTENDANT) Sodium 129(L) 135 - 145 mmol/L [facility] (VASHTI) Potassium, pl 3.8 3.3 - 4.9 mmol/L [facility] (VASHTI) Comment:Moderately Hemolyzed Specimen. Hemolysis present. Results may be affected. Chloride 93(L) 97 - 110 mmol/L [facility] ([place]HTI) CO2 18(L) 22 - 32 mmol/L [facility] ([place]HTI) Anion gap 17(H) 2 - 15 mmol/L [facility] ([place]) BUN 4(L) 8 - 25 mg/dL [facility] ([place]HTI) Creatinine 0.26(L) 0.60 - 1.10 mg/dL [facility] ([place]ASHTI) Glucose 113 70 - 199 mg/dL [facility] (VASHTI) [...] mg/dL [facility] (VASHTI) Blood specimen (specimen) 06/16/2019 8:41 AM [employer] ATTENDANT 06/16/2019 8:47 AM K[employer] ATTENDANT us Gio Sewell MD LAB BLOOD ORDERABLES Final Re sult TOMY SAHU (VASHTI) 1 [facility] for[MD] [place] [address] * (ABNORMAL) POCT glucose (06/16/2019 7:33 AM K[employer] ATTENDANT) [facility] Signature Glucose, POC 137(H) 71 - 98 mg/dL [facility] (VASHTI) Blood specimen (specimen) 06/16/2019 7:33 AM [facility] ATTENDANT 06/16/2019 7:33 AM K[employer] ATTENDANT us Sanjuanita Enamorado MD LAB POCT ORDERABLES - DEVICE Final Result TOMY SAHU (VASHTI) 1 [facility] for[MD] [place] [address] * (ABNORMAL) POCT glucose (06/16/2019 6:41 AM [facility] ATTENDANT) Glucose, POC 135(H) 71 - 98 mg/dL TOMY SAHU (VASHTI) Blood specimen (specimen) 06/16/2019 6:41 AM [employer] ATTENDANT 06/16/2019 6:41 AM K[employer] ATTENDANT us Sanjuanita Enamorado MD LAB POCT ORDERABLES - DEVICE Final Result TOMY SAHU (VASHTI) 1 [facility] [place] [employer] [place] [address] * (ABNORMAL) POCT glucose (06/16/2019 5:32 AM [facility] ATTENDANT) Glucose, POC 132(H) 71 - 98 mg/dL TOMY SAHU (SEGUIN) Blood specimen (specimen) 06/16/2019 5:32 AM [facility] ATTENDANT 06/16/2019 5:32 AM K[employer] ATTENDANT us Sanjuanita Enamorado MD LAB POCT ORDERABLES - DEVICE Final Result Performing Organization Address City/[facility] Co de Phone Number TOMY SAHU (SEGUIN) 1 [facility] [place] [employer] [place] [address] * (ABNORMAL) POCT glucose (06/16/2019 4:32 AM [facility] ATTENDANT) Glucose, POC 120(H) 71 - 98 mg/dL TOMY SAHU (SEGUIN) Blood specimen (specimen) 06/16/2019 4:32 AM K[employer] CL[employer] ATTENDANT 06/16/2019 4:32 AM [facility] ATTENDANT Sanjuanita Enamorado MD LAB POCT ORDERABLES - DEVICE Final Result Performing Organization Address City/[facility]/ZIP Co de Phone Number TOMY SAHU (VASHTI) 1 [facility] [place] [employer] [place] [address] * eGFR (06/16/2019 4:06 AM [facility] ATTENDANT) eGFR 159 mL/min/1.7 3 m2 TOMY SAHU (SEGUIN) Comment: Interpretive Data Reference Interval Normal ?>/= 90 mL/min/1.73m2 Mildly decreased* ? 60 - 89 mL/min/1.73m2 Mildly to moderately decreased ?45 - 59 mL/min/1.73m2 Moderately to severely decreased ??30 - 44 mL/min/1.73m2 Severely decreased ?15 - 29 mL/min/1.73m2 Kidney Failure ?< 15 ??mL/min/1.73m2 *Relative to young adult level If -Belgian multiply value by 1.16. Estimated glomerular filtration [...] was last reviewed 2015. Blood specimen (specimen) 06/16/2019 4:06 AM [employer] ATTENDANT 06/16/2019 4:09 AM [employer] ATTENDANT us Sanjuanita Enamorado MD LAB BLOOD ORDERABLES Final Re sult TOMY LUIS AL[facility]ERTO (SEGUIN) 1 [facility] Department [place] [address] * (ABNORMAL) Phosphorus (06/16/2019 4:06 AM [facility] ATTENDANT) Phosphorus, pl 2.2(L) 2.3 - 4.5 mg/dL TOMY SAHU (SEGUIN) Blood specimen (specimen) 06/16/2019 4:06 AM [facility] ATTENDANT 06/16/2019 4:09 AM K[employer] CL[employer] ATTENDANT us Gio Sewell MD LAB BLOOD ORDERABLES Final Re sult TOMY SAHU (VASHTI) 1 [facility] [place] [address] * Magnesium (06/16/2019 4:06 AM [facility] ATTENDANT) Magnesium 1.5 1.4 - 2.5 mg/dL [facility] (VASHTI) Blood specimen (specimen) 06/16/2019 4:06 AM [facility] ATTENDANT 06/16/2019 4:09 AM K[employer] ATTENDANT Gio Sewell MD LAB BLOOD ORDERABLES Final Re sult Performing Organization Address City/[facility]/ZIP Co de Phone Number TOMY SAHU (VASHTI) 1 [facility] [place] [employer] [place] [address] * (ABNORMAL) Basic metabolic panel (06/16/2019 4:06 AM [facility] ATTENDANT) Sodium 131(L) 135 - 145 mmol/L [facility] (VASHTI) Potassium, pl 3.4 3.3 - 4.9 mmol/L [facility] (VASHTI) Chloride 97 97 - 110 mmol/L [facility] (V[place]HTI) CO2 19(L) 22 - 32 mmol/L [facility] (VASHTI) Anion gap 15 2 - 15 mmol/L [facility] ([place]I) BUN 6(L) 8 - 25 mg/dL [facility] (V[place]HTI) Creatinine 0.32(L) 0.60 - 1.10 mg/dL [facility] (VASHTI) Glucose 142 70 - 199 mg/dL [facility] (VASHTI) Comment: Interpretive Data Fasting glucose >/= [...] 2017. Calcium 8.5 8.5 - 10.3 mg/dL TOMY SAHU (VASHTI) Blood specimen (specimen) 06/16/2019 4:06 AM [facility] ATTENDANT 06/16/2019 4:09 AM K[employer] CL[employer] ATTENDANT Gio Sewell MD LAB BLOOD ORDERABLES Final Re sult Performing Organization Address City/[facility]/ZIP Co de Phone Number TOMY SAHU (VASHTI) 1 [facility] [place] [employer] [place] [address] * (ABNORMAL) POCT glucose (06/16/2019 3:23 AM K[employer] CL[employer] ATTENDANT) Glucose, POC 114(H) 71 - 98 mg/dL TOMY SAHU (SEGUIN) Blood specimen (specimen) 06/16/2019 3:23 AM K[employer] ATTENDANT 06/16/2019 3:23 AM K[employer] CL[employer] ATTENDANT Sanjuanita Enamorado MD LAB POCT ORDERABLES - DEVICE Final Result Performing Organization Address [facility] Co de Phone Number TOMY SAHU (SEGUIN) 1 [facility] [place] [employer] [place] [address] * (ABNORMAL) POCT glucose (06/16/2019 2:17 AM K[employer] ATTENDANT) Glucose, POC 140(H) 71 - 98 mg/dL TOYM SAHU (SEGUIN) Blood specimen (specimen) 06/16/2019 2:17 AM K[employer] CL[employer] ATTENDANT 06/16/2019 2:17 AM [facility] ATTENDANT Sanjuanita Enamorado MD LAB POCT ORDERABLES - DEVICE Final Result Performing Organization Address City/[facility]/ZIP Co de Phone Number TOMY SAHU (SEGUIN) 1 [facility] [place] [employer] [place] [address] * (ABNORMAL) POCT glucose (06/16/2019 1:18 AM [facility] ATTENDANT) Glucose, POC 143(H) 71 - 98 mg/dL TOMY SAHU (SEGUIN) Blood specimen (specimen) 06/16/2019 1:18 AM K[employer] ATTENDANT 06/16/2019 1:18 AM K[employer] ATTENDANT us Sanjuanita Enamorado MD LAB POCT ORDERABLES - DEVICE Final Result Performing Organization Address [facility]/ZIP Co de Phone Number TOMY SAHU (VASHTI) 1 [facility] Department [place] [address] * eGFR (06/16/2019 12:04 AM K[employer] ATTENDANT) eGFR 145 mL/min/1.7 3 m2 TOMY SAHU (SEGUIN) Comment: Interpretive Data Reference Interval Normal ?>/= 90 mL/min/1.73m2 Mildly decreased* ? 60 - 89 mL/min/1.73m2 Mildly to moderately decreased ?45 - 59 mL/min/1.73m2 Moderately to severely decreased ??30 - 44 mL/min/1.73m2 Severely decreased ?15 - 29 mL/min/1.73m2 Kidney Failure ?< 15 ??mL/min/1.73m2 *Relative to young adult level If -Belgian multiply value by 1.16. Estimated glomerular filtration [...] was last reviewed 2015. Blood specimen (specimen) 06/16/2019 12:04 AM [facility] ATTENDANT 06/16/2019 12:07 AM K[employer] CL[employer] ATTENDANT us Sanjuanita Enamorado MD LAB BLOOD ORDERABLES Final Re sult Performing Organization Address City/[facility]/ZIP Co de Phone Number TOMY SAHU (VASHTI) 1 [facility] [place] [employer] [place] [address] * (ABNORMAL) POCT glucose (06/16/2019 12:04 AM K[employer] CL[employer] ATTENDANT) Glucose, POC 140(H) 71 - 98 mg/dL TOMY SAHU (VASHTI) Blood specimen (specimen) 06/16/2019 12:04 AM K[employer] CL[employer] ATTENDANT 06/16/2019 12:04 AM K[employer] CL[employer] ATTENDANT us Sanjuanita Enamorado MD LAB POCT ORDERABLES - DEVICE Final Result TOMY SAHU (SEGUIN) 1 [facility] [place] [employer] [place] [address] * Phosphorus (06/16/2019 12:04 AM K[employer] ATTENDANT) Phosphorus, pl 2.3 2.3 - 4.5 mg/dL TOMY SAHU (VASHTI) Blood specimen (specimen) 06/16/2019 12:04 AM [facility] CL[employer] ATTENDANT 06/16/2019 12:07 AM K[employer] CL[employer] ATTENDANT Gio Sewell MD LAB BLOOD ORDERABLES Final Re sult Performing Organization Address City/[facility]/ZIP Co de Phone Number TOMY SAHU (VASHTI) 1 [facility] [place] [employer] [place] [address] * Magnesium (06/16/2019 12:04 AM KIDS CL[facility] ATTENDANT) Pathologist [facility] Magnesium 1.6 1.4 - 2.5 mg/dL TOMY SAHU (VASHTI) Blood specimen (specimen) 06/16/2019 12:04 AM K[employer] CL[employer] ATTENDANT 06/16/2019 12:07 AM K[employer] CL[employer] ATTENDANT Gio Sewell MD LAB BLOOD ORDERABLES Final Re sult TOMY SAHU (VASHTI) 1 [facility] [place] [place] [address] * (ABNORMAL) Basic metabolic panel (06/16/2019 12:04 AM K[employer] ATTENDANT) Sodium 130(L) 135 - 145 mmol/L [facility] (VASHTI) Potassium, pl 3.9 3.3 - 4.9 mmol/L [facility] ([facility]) Chloride 96(L) 97 - 110 mmol/L [facility] (VASHTI) CO2 16(L) 22 - 32 mmol/L [facility] (VASHTI) Anion gap 17(H) 2 - 15 mmol/L [facility] ([place]ASHTI) BUN 8 8 - 25 mg/dL [facility] ([facility]) Creatinine 0.42(L) 0.60 - 1.10 mg/dL [facility] ([place]HTI) Glucose 154 70 - 199 mg/dL [facility] (VASHTI) Comment: Interpretive Data Fasting [...] 2017. Calcium 8.7 8.5 - 10.3 mg/dL [facility] ([facility]) Blood specimen (specimen) 06/16/2019 12:04 AM [facility] ATTENDANT 06/16/2019 12:07 AM K[employer] CL[employer] ATTENDANT us Gio Sewell MD LAB BLOOD ORDERABLES Final Re sult [facility] (VASHTI) 1 [facility] Department of Laboratories [place], [place] [id number] * (ABNORMAL) POCT glucose (06/15/2019 10:59 PM K[employer] ATTENDANT) Glucose, POC 122(H) 71 - 98 mg/dL [facility] (V[place]HTI) Blood specimen (specimen) 06/15/2019 10:59 PM KIDS CL[employer] ATTENDANT 06/15/2019 10:59 PM K[employer] CL[employer] ATTENDANT us Sanjuanita Enamorado MD LAB POCT ORDERABLES - DEVICE Final Result TOMY SAHU (SEGUIN) 1 [facility] [place] [employer] [place] [address] * (ABNORMAL) POCT glucose (06/15/2019 9:56 PM K[employer] CL[employer] ATTENDANT) Glucose, POC 107(H) 71 - 98 mg/dL TOMY SAHU (SEGUIN) Blood specimen (specimen) 06/15/2019 9:56 PM KIDS CLUB ATTENDANT 06/15/2019 9:56 PM KIDS CLUB ATTENDANT us Sanjuanita Enamorado MD LAB POCT ORDERABLES - DEVICE Final Result Performing Organization Address [facility]/ZIP Co de Phone Number TOMY SAHU (SEGUIN) 1 [facility] [place] [employer] [place] [address] * eGFR (06/15/2019 8:28 PM KIDS CL[employer] ATTENDANT) eGFR 145 mL/min/1.7 3 m2 [facility] (SEGUIN) Comment: Interpretive Data Reference Interval Normal ?>/= 90 mL/min/1.73m2 Mildly decreased* ? 60 - 89 mL/min/1.73m2 Mildly to moderately decreased ?45 - 59 mL/min/1.73m2 Moderately to severely decreased ??30 - 44 mL/min/1.73m2 Severely decreased ?15 - 29 mL/min/1.73m2 Kidney Failure ?< 15 ??mL/min/1.73m2 *Relative to young adult level If -Belgian multiply value by 1.16. Estimated glomerular filtration [...] was last reviewed 2015. Blood specimen (specimen) 06/15/2019 8:28 PM KIDS CL[employer] ATTENDANT 06/15/2019 8:29 PM KIDS CL[employer] ATTENDANT Gio Sewell MD LAB BLOOD ORDERABLES Final Re sult TOMY SAHU (VASHTI) 1 [facility] [place] [place] [address] * (ABNORMAL) Phosphorus (06/15/2019 8:28 PM KIDS CL[facility] ATTENDANT) Phosphorus, pl 2.2(L) 2.3 - 4.5 mg/dL TOMY SAHU (SEGUIN) Blood specimen (specimen) 06/15/2019 8:28 PM KIDS CL[employer] ATTENDANT 06/15/2019 8:29 PM KIDS CL[employer] ATTENDANT Gio Sewell MD LAB BLOOD ORDERABLES Final Re sult Performing Organization Address City/[facility] Co de Phone Number TOMY SAHU (SEGUIN) 1 [facility] [place] [place] [address] * Magnesium (06/15/2019 8:28 PM KIDS CL[facility] ATTENDANT) Magnesium 1.7 1.4 - 2.5 mg/dL [facility] ([place]) Blood specimen (specimen) 06/15/2019 8:28 PM KIDS CL[employer] ATTENDANT 06/15/2019 8:29 PM KIDS CLUB ATTENDANT Gio Sewell MD LAB BLOOD ORDERABLES Final Re sult Performing Organization Address City/[facility]/ZIP Co de Phone Number TOMY SHAU (SEGUIN) 1 [facility] [place] [employer] [place] [address] * (ABNORMAL) Lactate (06/15/2019 8:28 PM KIDS CL[facility] ATTENDANT) Lactate 0.6(L) 0.7 - 2.0 mmol/L [facility] ([place]I) Blood specimen (specimen) 06/15/2019 8:28 PM K[employer] CL[employer] ATTENDANT 06/15/2019 8:29 PM KIDS CL[employer] ATTENDANT Gio Sewell MD LAB BLOOD ORDERABLES Final Re sult TOMY SAHU (VASHTI) 1 [facility] [place] [employer] [place] [address] * (ABNORMAL) Beta-hydroxybutyrate (06/15/2019 8:28 PM KIDS CL[facility] ATTENDANT) Beta-Hydroxybu tyrate 1.8(H) <=0.5 mmol/L [facility] ([place]HTI) Comment:Testing performed by : [facility], [address] [place] [address], [id number] Blood specimen (specimen) 06/15/2019 8:28 PM KIDS CL[employer] ATTENDANT 06/16/2019 9:23 AM K[employer] CL[employer] ATTENDANT Gio Sewell MD LAB BLOOD ORDERABLES Final Re sult Performing Organization Address City/[facility]/ZIP Co de Phone Number TOMY SAHU (VASHTI) 1 [facility] [place] [employer] [place] [address] * (ABNORMAL) Basic metabolic panel (06/15/2019 8:28 PM KIDS CL[employer] ATTENDANT) Sodium 131(L) 135 - 145 mmol/L [facility] ([place]) Potassium, pl 4.0 3.3 - 4.9 mmol/L [facility] ([place]I) Chloride 100 97 - 110 mmol/L [facility] ([place]) CO2 17(L) 22 - 32 mmol/L [facility] ([place]HTI) Anion gap 14 2 - 15 mmol/L [facility] ([place]) BUN 9 8 - 25 mg/dL [facility] ([place]) Creatinine 0.42(L) 0.60 - 1.10 mg/dL [facility] ([place]HTI) Glucose 130 70 - 199 mg/dL [facility] (VASHTI) Comment: Interpretive Data Fasting [...] 2017. Calcium 8.8 8.5 - 10.3 mg/dL [facility] ([place]GU[place]) Blood specimen (specimen) 06/15/2019 8:28 PM KIDS CL[employer] ATTENDANT 06/15/2019 8:29 PM K[employer] CL[employer] ATTENDANT Gio Sewell MD LAB BLOOD ORDERABLES Final Re sult Performing Organization Address City/[facility]/ZIP Co de Phone Number [facility] (SEGUIN) [address] [place] [address] for[MD] [place] [address] * (ABNORMAL) POCT glucose (06/15/2019 7:47 PM KIDS CL[facility] ATTENDANT) Glucose, POC 132(H) 71 - 98 mg/dL [facility] ([place]) Blood specimen (specimen) 06/15/2019 7:47 PM K[employer] CL[employer] ATTENDANT 06/15/2019 7:47 PM KIDS CL[employer] ATTENDANT Sanjuanita Enamorado MD LAB POCT ORDERABLES - DEVICE Final Result Performing Organization Address City/[facility]/ZIP Co de Phone Number [facility] (SEGUIN) [address] [place] [address] [place] [address] * Infection Prevention MRSA Only (Staphylococcus aureus) PCR Nasal (06/15/2019 6:39 PM [facility]IDS [employer] ATTENDANT) PCR Scrn, Methicillin resistant Staphylococcus aureus (MRSA) Not Detected Not Detected [facility] (SEGUIN) Comment: Testing performed using Nucleic Acid Amplification with the [employer] Xpert MRSA Assay. This assay detects DNA from SCCmec strains of Staphylococcus aureus using Real- Time PCR and has been cleared by the FDA. Performance characteristics have been verified by the [facility]. Nasal 06/15/2019 6:39 PM KIDS CLUB ATTENDANT 06/15/2019 6:45 PM KIDS CLUB ATTENDANT Sanjuanita Enamorado MD LAB MICROBIOLOGY - GENERAL OR DERABLES Final Result TOMY SAHU (VASHTI) 1 [place] [address] * (ABNORMAL) POCT glucose (06/15/2019 6:30 PM KIDS CL[employer] ATTENDANT) Glucose, POC 105(H) 71 - 98 mg/dL [facility] (SEGUIN) Blood specimen (specimen) 06/15/2019 6:30 PM KIDS CL[employer] ATTENDANT 06/15/2019 6:30 PM KIDS CLUB ATTENDANT us Sanjuanita Enamorado MD LAB POCT ORDERABLES - DEVICE Final Result Performing Organization Address [facility] Co de Phone Number TOMY SAHU (SEGUIN) 1 [place] [address] * (ABNORMAL) POCT glucose (06/15/2019 5:24 PM KIDS CL[employer] ATTENDANT) Glucose, POC 133(H) 71 - 98 mg/dL [facility] (VASHTI) Blood specimen (specimen) 06/15/2019 5:24 PM KIDS CL[employer] ATTENDANT 06/15/2019 5:24 PM KIDS CLUB ATTENDANT Sanjuanita Enamorado MD LAB POCT ORDERABLES - DEVICE Final Result Performing Organization Address City/[facility]/ZIP Co de Phone Number TOMY SAHU (VASHTI) 1 [place] [address] * (ABNORMAL) POCT glucose (06/15/2019 4:26 PM KIDS CL[employer] ATTENDANT) Glucose, POC 129(H) 71 - 98 mg/dL [facility] (VASHTI) Blood specimen (specimen) 06/15/2019 4:26 PM KIDS CLUB ATTENDANT 06/15/2019 4:26 PM KIDS CLUB ATTENDANT us Sanjuanita Enamorado MD LAB POCT ORDERABLES - DEVICE Final Result TOMY SAHU (SEGUIN) 1 [facility] [place] [place] [address] * (ABNORMAL) POCT glucose (06/15/2019 3:17 PM KIDS CLUB ATTENDANT) Glucose, POC 129(H) 71 - 98 mg/dL [facility] (SEGUIN) Blood specimen (specimen) 06/15/2019 3:17 PM KIDS CLUB ATTENDANT 06/15/2019 3:17 PM KIDS CLUB ATTENDANT Sanjuanita Enamorado MD LAB POCT ORDERABLES - DEVICE Final Result Performing Organization Address [facility] Co de Phone Number TOMY SAHU (SEGUIN) 1 [facility] [place] [place] [address] * eGFR (06/15/2019 2:43 PM KIDS CL[employer] ATTENDANT) eGFR 138 mL/min/1.7 3 m2 [facility] (SEGUIN) Comment: Interpretive Data Reference Interval Normal ?>/= 90 mL/min/1.73m2 Mildly decreased* ? 60 - 89 mL/min/1.73m2 Mildly to moderately decreased ?45 - 59 mL/min/1.73m2 Moderately to severely decreased ??30 - 44 mL/min/1.73m2 Severely decreased ?15 - 29 mL/min/1.73m2 Kidney Failure ?< 15 ??mL/min/1.73m2 *Relative to young adult level If -Belgian multiply value by 1.16. Estimated glomerular filtration [...] was last reviewed 2015. Blood specimen (specimen) 06/15/2019 2:43 PM KIDS CL[employer] ATTENDANT 06/15/2019 2:47 PM KIDS CLUB ATTENDANT Sanjuanita Enamorado MD LAB BLOOD ORDERABLES Final Re sult Performing Organization Address City/[facility]/ZIP Co de Phone Number [facility] ([place]) 1 [facility] [place] [employer] [place] [address] * Magnesium (06/15/2019 2:43 PM KIDS CLUB ATTENDANT) Magnesium 1.7 1.4 - 2.5 mg/dL [facility] Blood specimen (specimen) 06/15/2019 2:43 PM KIDS CLUB ATTENDANT 06/15/2019 2:47 PM KIDS CLUB ATTENDANT Sanjuanita Enamorado MD LAB BLOOD ORDERABLES Final Re sult Performing Organization Address [facility] Co de Phone Number [facility] ([place]) 1 [facility] [place] [place] [address] * Phosphorus (06/15/2019 2:43 PM KIDS CLUB ATTENDANT) Phosphorus, pl 2.3 2.3 - 4.5 mg/dL [facility] Blood specimen (specimen) 06/15/2019 2:43 PM KIDS CLUB ATTENDANT 06/15/2019 2:47 PM KIDS CLUB ATTENDANT Sanjuanita Enamorado MD LAB BLOOD ORDERABLES Final Re sult Performing Organization Address City/[facility] Co de Phone Number [facility] ([place]) 1 [facility] [place] [employer] [place] [address] * (ABNORMAL) Basic metabolic panel (06/15/2019 2:43 PM KIDS CL[employer] ATTENDANT) Sodium 131(L) 135 - 145 mmol/L [facility] ([place]) Potassium, pl 4.2 3.3 - 4.9 mmol/L [facility] ([place]) Chloride 100 97 - 110 mmol/L [facility] ([place]) CO2 13(L) 22 - 32 mmol/L [facility] ([place]) Anion gap 18(H) 2 - 15 mmol/L [facility] ([place]) BUN 11 8 - 25 mg/dL [facility] ([place]) Creatinine 0.49(L) 0.60 - 1.10 mg/dL [facility] ([place]) Glucose 168 70 - 199 mg/dL [facility] ([place]) [...] mg/dL [facility] ([place]) Blood specimen (specimen) 06/15/2019 2:43 PM [facility] ATTENDANT 06/15/2019 2:47 PM [facility]END[facility] Sanjuanita Enamorado MD LAB BLOOD ORDERABLES Final Re sult Performing Organization Address [facility] Co de Phone Number [facility] ([place]) [address] [facility] Department [place] [address] * (ABNORMAL) POCT glucose (06/15/2019 1:58 PM [facility] ATTEND[facility]) Glucose, POC 147(H) 71 - 98 mg/dL [facility] ([place]) Blood specimen (specimen) 06/15/2019 1:58 PM [facility] ATTEND[facility] 06/15/2019 1:58 PM [facility]END[facility] Sanjuanita Enamorado MD LAB POCT ORDERABLES - DEVICE Final Result Performing Organization Address [facility] Co de Phone Number [facility] ([place]) [address] [facility] [place] [place] [address] * (ABNORMAL) POCT glucose (06/15/2019 12:17 PM [facility] ATTEND[facility]) Glucose, POC 141(H) 71 - 98 mg/dL [facility] ([place]) Blood specimen (specimen) 06/15/2019 12:17 PM [employer] ATTENDANT 06/15/2019 12:17 PM [employer]IDS [employer] ATTENDANT Sanjuanita Enamorado MD LAB POCT ORDERABLES - DEVICE Final Result Performing Organization Address [facility]/ZIP Co de Phone Number TOMY SAHU (SEGUIN) 1 [facility] [place] [employer] [place] [address] * (ABNORMAL) POCT glucose (06/15/2019 11:15 AM KIDS CL[employer] ATTENDANT) Glucose, POC 132(H) 71 - 98 mg/dL ASHLEYTOSHA SAHU (SEGUIN) Blood specimen (specimen) 06/15/2019 11:15 AM KIDS CL[employer] ATTENDANT 06/15/2019 11:15 AM KIDS CL[employer] ATTENDANT Dre Mancuso MD LAB POCT ORDERABLES - DEVICE F inal Result Performing Organization Address [facility] Co de Phone Number TOMY SAHU (SEGUIN) 1 [facility] [place] [employer] [place] [address] * (ABNORMAL) POCT glucose (06/15/2019 10:04 AM [facility]IDS [employer] ATTENDANT) Glucose, POC 209(H) 71 - 98 mg/dL TOMY SAHU (VASHTI) Comment:Glu2: RN/ Notified Blood specimen (specimen) 06/15/2019 10:04 AM [employer] CL[employer] ATTENDANT 06/15/2019 10:04 AM K[employer] CL[employer] ATTENDANT Dre Mancuso MD LAB POCT ORDERABLES - DEVICE F inal Result Performing Organization Address City/[facility]/ZIP Co de Phone Number TOMY SAHU (SEGUIN) 1 [facility] [place] [employer] [place] [address] * (ABNORMAL) POCT glucose (06/15/2019 8:55 AM [facility] ATTENDANT) Glucose, POC 288(H) 71 - 98 mg/dL TOMY SAHU (VASHTI) Blood specimen (specimen) 06/15/2019 8:55 AM K[employer] CL[employer] ATTENDANT 06/15/2019 8:55 AM K[employer] CLUB ATTENDANT Dre Mancuso MD LAB POCT ORDERABLES - DEVICE F inal Result Performing Organization Address [facility]/ZIP Co de Phone Number TOMY SAHU (SEGUIN) 1 [place] [address] * POCT hCG, urine (06/15/2019 8:06 AM [facility] ATTENDANT) HCG, ur, POC Negative Lot Number [id number] QC Backgroud Clear Acceptable QC Control Line Acceptable Urine 06/15/2019 8:06 AM [employer] ATTENDANT Dre Mancuso MD POINT OF CARE TEST ORDERABLES Final Result * hCG, urine, qualitative (06/15/2019 8:05 AM [facility] ATTENDANT) HCG, ur Negative Negative TOMY SAHU (SEGUIN) Urine 06/15/2019 8:05 AM K[employer] ATTENDANT 06/15/2019 8:17 AM K[employer] CL[employer] ATTENDANT Dre Mancuso MD LAB URINE ORDERABLES Final Res ult Performing Organization Address [facility]/State/ZIP Co de Phone Number TOMY SAHU (SEGUIN) 1 [facility] [place] [employer] [place] [address] * (ABNORMAL) Urinalysis reflex to microscopic and culture Urine (06/15/2019 8:05 AM [facility] ATTENDANT) Color, ur Yellow Yellow TOMY SAHU (SEGUIN) Clarity, ur Clear Clear [facility] (SEGUIN) Specific gravity, ur 1.026(H) 1.010 - 1.025 [facility] (VASHTI) pH, urine 5.0 [facility] (VASHTI) Protein, ur ql Negative Negative [facility] (VASHTI) Glucose, ur ql 3+(A) Negative [facility] (VASHTI) Ketones, ur 4+(A) Negative [facility] (VASHTI) Bilirubin, ur Negative Negative [facility] (VASHTI) Blood, ur Negative Negative [facility] (VASHTI) Urobilinogen, ur 0.2 mg/dL [facility] (VASHTI) Nitrite, ur Negative Negative [facility] (VASHTI) Leukocyte esterase, ur Negative Negative [facility] (VASHTI) UA reflex comment Reflex conditions for microscopic UA and culture not met. [facility] (VASHTI) Urine 06/15/2019 8:05 AM [facility] CL[employer] ATTENDANT 06/15/2019 8:08 AM KIDS CLUB ATTENDANT Narrative [facility] (VASHTI) - 06/15/2019 8:15 AM KIDS [employer] ATTENDANT ?? Urine pH is affected by diet, medications, systemic acid-base disturbances, and renal tubular function. ??pH may affect urinary stone formation. ??For example, urine pH below 6.0 may help reduce the tendency for calcium phosphate stones and pH greater than 6.0 may reduce the tendency for uric acid stone formation. Source: [facility] [employer]. Last revised 05-13-2017 us Dre Mancuso MD LAB MICROBIOLOGY - GENERAL ORD ERABLES Final Result TOMY SAHU (VASHTI) 1 [facility] Department of Laboratories [place], [place] [id number] * (ABNORMAL) Blood gas, arterial (06/15/2019 7:12 AM [facility] ATTENDANT) pH, Art 7.34(L) 7.35 - 7.45 [facility] (VASHTI) PCO2, Arterial 22(L) 35 - 45 mmHg [facility] (VASHTI) PO2, Arterial 115(H) 83 - 108 mmHg [facility] (VASHTI) HCO3 Art (Calculated) 12(L) 20 - 30 mmol/L [facility] (VASHTI) BE, art -12 mmol/L [facility] (VASHTI) Comment: Interpretive Data No Reference Range Established Current Interpretive Data was last revised on 2017 O2 Sat Art (Measured) 99(H) 90 - 95 % TOMY SAHU (SEGUIN) Blood specimen (specimen) 06/15/2019 7:12 AM [employer] ATTENDANT 06/15/2019 7:17 AM K[employer] ATTENDANT Dre Mancuso MD LAB BLOOD ORDERABLES Final Res ult TOMY LUIS ALBERTO (SEGUIN) 1 [facility] Department [place] [address] * eGFR (06/15/2019 7:05 AM [facility] ATTENDANT) eGFR 133 mL/min/1.7 3 m2 TOMY SAHU (SEGUIN) Comment: Interpretive Data Reference Interval Normal ?>/= 90 mL/min/1.73m2 Mildly decreased* ? 60 - 89 mL/min/1.73m2 Mildly to moderately decreased ?45 - 59 mL/min/1.73m2 Moderately to severely decreased ??30 - 44 mL/min/1.73m2 Severely decreased ?15 - 29 mL/min/1.73m2 Kidney Failure ?< 15 ??mL/min/1.73m2 *Relative to young adult level If -Belgian multiply value by 1.16. Estimated glomerular filtration [...] was last reviewed 2015. Blood specimen (specimen) 06/15/2019 7:05 AM [facility] ATTENDANT 06/15/2019 7:52 AM K[employer] CL[employer] ATTENDANT Dre Mancuso MD LAB BLOOD ORDERABLES Final Res ult [facility] (SEGUIN) 1 [facility] Department [place] [address] * (ABNORMAL) Differential, auto (06/15/2019 7:05 AM [facility] ATTENDANT) Neutrophil abs 16.6(H) 1.7 - 6.5 K/cumm [facility] (VASHTI) Imm gran abs 0.1 0.0 - 0.1 K/cumm [facility] (VASHTI) Lymphocyte abs 0.8 0.8 - 3.3 K/cumm [facility] (VASHTI) Monocyte abs 0.4 0.2 - 0.8 K/cumm [facility] (VASHTI) Eosinophil abs 0.0 0.0 - 0.5 K/cumm [facility] (VASHTI) Basophil abs 0.0 0.0 - 0.1 K/cumm [facility] (VASHTI) Neutrophil pct 92.7 % [facility] (SEGUIN) Comment: Interpretive Data Percent cell count reference [...] was last revised on 2017. Lymphocyte pct 4.3 % [facility] (VASHTI) Comment: Interpretive Data Percent cell count reference ranges are not reported, since discordance with absolute values may lead to misinterpretation of CBC data. Current Interpretive Data was last revised on 2017. Monocyte pct 2.3 % [facility] (VASHTI) Comment: Interpretive Data [...] last revised on 2017. Blood specimen (specimen) 06/15/2019 7:05 AM [facility] ATTENDANT 06/15/2019 7:52 AM [employer] ATTENDANT Dre Mancuso MD LAB BLOOD ORDERABLES Final Res ult TOMY SAHU (SEGUIN) 1 [facility] [place] [place] [address] * Magnesium (06/15/2019 7:05 AM KIDS CL[employer] ATTENDANT) Magnesium 1.8 1.4 - 2.5 mg/dL TOMY LUIS ALBERTO (VASHTI) Blood specimen (specimen) 06/15/2019 7:05 AM [facility] CL[employer] ATTENDANT 06/15/2019 7:52 AM K[employer] CL[employer] ATTENDANT Dre Mancuso MD LAB BLOOD ORDERABLES Final Res ult Performing Organization Address [facility] Co de Phone Number TOMY SAHU (SEGUIN) 1 [facility] [place] [place] [address] * Phosphorus (06/15/2019 7:05 AM KIDS CL[employer] ATTENDANT) Phosphorus, pl 2.9 2.3 - 4.5 mg/dL TOMY SAHU (SEGUIN) Blood specimen (specimen) 06/15/2019 7:05 AM K[facility] CL[employer] ATTENDANT 06/15/2019 7:52 AM K[employer] ATTENDANT Dre Mancuso MD LAB BLOOD ORDERABLES Final Res ult Performing Organization Address City/[facility]/ZIP Co de Phone Number TOMY SAHU (VASHTI) 1 [facility] [place] [place] [address] * (ABNORMAL) Comprehensive metabolic panel (06/15/2019 7:05 AM [facility] ATTENDANT) Sodium 134(L) 135 - 145 mmol/L [facility] (VASHTI) Potassium, pl 4.4 3.3 - 4.9 mmol/L [facility] (VASHTI) Chloride 95(L) 97 - 110 mmol/L [facility] (VASHTI) CO2 12(L) 22 - 32 mmol/L [facility] (VASHTI) Anion gap 27(H) 2 - 15 mmol/L [facility] (VASHTI) BUN 12 8 - 25 mg/dL [facility] (VASHTI) Creatinine 0.55(L) 0.60 - 1.10 mg/dL [facility] (VASHTI) Glucose 312(H) 70 - 199 mg/dL [facility] (VASHTI) [...] 1.2 mg/dL [facility] (VASHTI) Protein, pl 7.6 6.5 - 8.5 g/dL [facility] (VASHTI) Albumin 4.5 3.5 - 5.0 g/dL [facility] (VASHTI) Alk phos 93 40 - 130 Units/L [facility] (VASHTI) ALT 13 7 - 45 Units/L [facility] (VASHTI) AST 17 10 - 45 Units/L [facility] (VASHTI) Blood specimen (specimen) 06/15/2019 7:05 AM [facility] ATTENDANT 06/15/2019 7:52 AM K[employer] CL[employer] ATTENDANT us Dre Mancuso MD LAB BLOOD ORDERABLES Final Res ult [facility] (VASHTI) 1 [facility] Department [place] [address] * (ABNORMAL) CBC with auto differential (06/15/2019 7:05 AM [facility] ATTENDANT) WBC 17.9(H) 3.8 - 9.9 K/cumm [facility] (VASHTI) Hgb 14.1 11.9 - 15.5 g/dL [facility] (VASHTI) Hct 43.0 35.6 - 45.5 % [facility] (VASHTI) Plt 309 150 - 400 K/cumm [facility] (VASHTI) MPV 10.6 9.1 - 12.3 fL [facility] (VASHTI) RBC 4.88 3.90 - 5.20 M/cumm [facility] (VASHTI) MCV 88.1 81.3 - 96.4 fL [facility] (VASHTI) MCH 28.9 27.1 - 33.3 pg [facility] (VASHTI) MCHC 32.8 32.3 - 35.7 g/dL [facility] (VASTHI) RDW CV 13.4 11.1 - 14.9 % [facility] (VASHTI) RDW SD 43.2 35.7 - 48.1 fL [facility] (VASHTI) NRBC abs 0.00 0.00 - 0.01 K/cumm [facility] (VASHTI) Blood specimen (specimen) 06/15/2019 7:05 AM [facility] ATTENDANT 06/15/2019 7:52 AM K[employer] CL[employer] ATTENDANT us Dre Mancuso MD LAB BLOOD ORDERABLES Final Res ult [facility] (VASHTI) 1 [facility] [place] [address] * [place] CRITICAL CARE ILL/INJURED PATIENT INIT 30-74 MIN (06/15/2019 6:58 AM K[employer] ATTENDANT) Narrative Dre Mancuso MD - 06/15/2019 6:58 AM K[employer] ATTENDANT Dre Mancuso MD ? 06/15/2019 ??8:37 AM Critical Care Performed by: Dre Mancuso MD Authorized by: Dre Mancuso MD Critical care provider statement: As reflected in the history, physical exam, orders, notes, and/or MDM, I was personally present while the patient was critically ill and provided critical care services for approximately 60 minutes, excluding time involved in separately billable procedures. ??Critical care was necessary to treat or prevent imminent or life-threatening deterioration of the following condition(s): ?? diabetic ketoacidosis ??Critical care was time spent by me providing the following: ? continuous telemetry and continuous pulse oximetry ?? glycemic control ?? I provided emergent necessary critical care medicine services to this patient. I ordered and reviewed test results and/or imaging studies. Dre Mancuso MD IN CLINIC/BEDSIDE ORDERABLES F inal Result * (ABNORMAL) POCT glucose (06/15/2019 6:44 AM [facility] ATTENDANT) [facility] Signature Glucose, POC 288(H) 71 - 98 mg/dL TOMY SAHU (VASHTI) Blood specimen (specimen) 06/15/2019 6:44 AM [employer] ATTENDANT 06/15/2019 6:44 AM KIDS CL[employer] ATTENDANT Notinfile Unknown LAB POCT ORDERABLES - DEVICE F inal Result TOMY SAHU (SEGUIN) 1 [facility] Department of Laboratories [place], [place] [address] documented in this encounter Visit Diagnoses Diagnosis Type 1 diabetes mellitus with ketoacidosis without coma (HCC)- Primary Diabetic ketoacidosis with coma associated with diabetes mellitus due to underlying condition (CMS/HCC) (HCC) Uncontrolled type 1 diabetes mellitus with hyperglycemia (HCC) Nausea and vomiting Nausea with vomiting Dehydration Sinus tachycardia Other specified cardiac dysrhythmias Noncompliance with medication regimen Personal history of noncompliance with medical treatment, presenting hazards to health documented in this encounter Administered Medications Inactive Administered Medications - up to 3 most recent administrations Medication Order MAR Action Action Date Dose Rate Site dextrose 5% infusion 100 mL/hr, intravenous, Continuous, Starting on Nurys 06/15/19 at 0828, Start when blood glucose less than 250 mg/dL and decrease rate of previous IV fluid infusion order. Notify MD when blood glucose less than 250 mg/dL and adjusting IV fluids. New Bag 06/15/2019 11:56 AM [employer] ATTENDANT 100 mL/hr 100 mL/hr dextrose 5% infusion 50 mL/hr, intravenous, Continuous, Starting on Nurys 06/15/19 at 2015, Start when blood glucose less than 250 mg/dL and decrease rate of previous IV fluid infusion order. Notify MD when blood glucose less than 250 mg/dL and adjusting IV fluids. New Bag 06/17/2019 5:40 AM [employer] ATTENDANT 50 mL/hr 50 mL/ hr Rate/Dose Change 06/16/2019 9:53 PM [employer] ATTENDANT 50 mL/hr 50 mL/h r New Bag 06/16/2019 4:12 PM [employer] ATTENDANT 100 mL/hr 100 mL/hr insulin glargine (LANTUS,BASAGLAR) pen injection 18 Units 18 Units (rounded from 18.3 Units = 0.3 Units/kg ? 61 kg), subcutaneous, Nightly, First dose on Wed06/16/19 at 2145, Discontinue insulin drip 2 hours after administration of dose. Do not mix with other insulins, Indications: Diabetes MellitusIndications:Diabe celia Mellitus Given 06/16/2019 10:59 PM [employer] ATTENDANT 18 Units Right Upper Arm insulin lispro (HumaLOG) pen injection 1-3 Units 1-3 Units, subcutaneous, Nightly, First dose on Wed06/16/19 at 2215, Blood Sugar Mid Dose PM - PO patients 175 or less No insulin 176 - 200 1 unit 201 - 250 2 units 251 - 299 3 units Greater than 299 Call MD for hyperglycemia management instructions Do NOT hold for NPO status., Indications: Diabetes MellitusIndications:Diabe celia Mellitus insulin lispro (HumaLOG) pen injection 1-5 Units 1-5 Units, subcutaneous, 3 times daily with meals, First dose on Wed06/17/19 at 0800, Blood Sugar Mid Dose meal time - PO patients 139 or less No insulin 140 - 175 1 unit 176 - 200 2 unit 201 - 250 3 units 251 - 299 5 units Greater than 299 Call MD for hyperglycemia management instructions Do NOT hold for NPO status., Indications: Diabetes MellitusIndications:Diabe celia Mellitus insulin regular (HumuLIN R, NovoLIN R) 100 Units in sodium chloride 0.9% 100 mL (1 Units/mL) infusion 0-30 Units/hr (0-30 mL/hr), 1 units/mL, intravenous, Titrated, Starting on Nurys 06/15/19 at 0900, Until 06/17/19 at 1519, Indications: Hyperglycemia, Desired Range (mg/dL): 130-180 general patients, Multiplier: 0.01, Adjust rate per GlucoStabilizer program for dka order When new IV tubing is used, completely prime the tubing. Once primed, waste an additional 20 ml of insulin infusion using the IV pump prior to connecting to patient., RoutineIndications:Hyperg lycemia Rate/Dose Change 06/17/2019 10:15 AM [employer] ATTENDANT 1 Units/hr 1 mL/hr Rate/Dose Change 06/17/2019 9:05 AM K[employer] ATTENDANT 4.7 Units/hr 4.7 m L/hr Rate/Dose Change 06/17/2019 7:01 AM K[employer] ATTENDANT 5.9 Units/hr 5.9 m L/hr magnesium sulfate 2 g/50 mL in water (premix) 2 g 2 g, intravenous, Administer over 60 Minutes, Once, On Wed06/16/19 at 0800, For 1 dose, Magnesium sulfate 2 gm ivpb run X 1 dose per pharmacy electrolyte replacement protocol for magnesium +=1.5 on 06/16/2019 New Bag 06/16/2019 7:42 AM [employer] ATTENDANT 2 g metoclopramide (REGLAN) injection 2.5 mg 2.5 mg, intravenous, Administer over 1 Minutes, Every 8 hours scheduled, First dose on Wed06/16/19 at 2215 Given 06/17/2019 6:56 AM [employer] ATTENDANT 2.5 mg Given 06/16/2019 10:55 PM [employer] ATTENDANT 2.5 mg ondansetron (ZOFRAN) injection 4 mg 4 mg, intravenous, Administer over 2 Minutes, Once, On Nurys 06/15/19 at 0646, For 1 dose, Indications: Nausea, VomitingIndications:Nausea,Vomiti ng Given 06/15/2019 7:08 AM [employer] ATTENDANT 4 mg potassium phosphates 23 mmol in sodium chloride 0.9% 500 mL IVPB 23 mmol, intravenous, at 84.6 mL/hr, Administer over 6 Hours, Once, On Wed06/16/19 at 0800, For 1 dose, For PERIPHERAL line administration Potassium phosphate 23 mmol ivpb run X 1 dose per pharmacy electrolyte replacement protocol for Phosphorous+=2.2 on 06/16/2019 (Potassium= 3.4) New Bag 06/16/2019 8:30 AM [employer] ATTENDANT 23 mmol 84.6 mL/hr potassium, sodium phosphates (PHOS-NAK) 280-160-250 mg packet 1 packet 1 packet, oral, 3 times daily before meals, First dose on 06/17/19 at 0815, For 3 doses, Each packet contains 250 mg elemental phosphorus. X 3 doses today per electrolyte replacement protocol for phos =2.5 on 06/17 Given 06/17/2019 8:41 AM [employer] ATTENDANT 1 packet prochlorperazine (COMPAZINE) injection 5 mg 5 mg, intravenous, Administer over 2 Minutes, Every 6 hours PRN, nausea, vomiting, Starting on Wed06/16/19 at 2140 sodium chloride 0.45% infusion 150 mL/hr, intravenous, Continuous, Starting on Nurys 06/15/19 at 0828, Decrease rate to 50 mL/hr when blood glucose less than 250 mg/dL. New Bag 06/15/2019 11:56 AM K[employer] ATTENDANT 50 mL/hr 50 mL/hr sodium chloride 0.45% infusion 50 mL/hr, intravenous, Continuous, Starting on Wed06/15/19 at 2015, . New Bag 06/16/2019 4:12 PM [employer] ATTENDANT 50 mL/hr 50 mL/hr Rate/Dose Change 06/16/2019 12:01 PM [employer] ATTENDANT 50 mL/hr 50 mL/ hr New Bag 06/16/2019 6:43 AM [employer] ATTENDANT 150 mL/hr 150 mL/hr sodium chloride 0.9% bolus 1,000 mL 1,000 mL, intravenous, at 1,000 mL/hr, Administer over 1 Hours, Once, On Nurys 06/15/19 at 0646, For 1 dose New Bag 06/15/2019 7:08 AM [employer] ATTENDANT 1,000 mL 1000 mL/hr sodium chloride 0.9% bolus 2,000 mL 2,000 mL, intravenous, at 1,000 mL/hr, Administer over 2 Hours, Once, On Nurys 06/15/19 at 0828, For 1 dose Rate/Dose Change 06/15/2019 10:12 AM [employer] ATTENDANT 1000 mL/hr sodium chloride 0.9% infusion 75 mL 75 mL, intravenous, Continuous, Starting on Wed06/16/19 at 2215, For 1 day New Bag 06/16/2019 10:53 PM [employer] ATTENDANT 1,000 mL 75 mL/hr sodium chloride 0.9% infusion 125 mL/hr, intravenous, Continuous, Starting on 06/17/19 at 0545 Rate/Dose Change 06/17/2019 5:07 AM [employer] ATTENDANT 125 mL/hr 125 mL/hr documented in this encounter Discontinued Medications Medication Sig Discontinue Reason Start Date End Da te metoclopramide (REGLAN) solution 5 mg/5 mL Take 10 mg by mouth 4 (four) times a day before meals and nightly Patient states no longer taking for past several days Non-compliance 06/15/2019 norethindrone-e.estradiol -iron (JUNEL FE 05/22) 1 mg-20 mcg (21)/75 mg (7) per tabletIndications:Pregnan cy Contraception Take 1 tablet by mouth daily Non-compliance 06/15/[address] (PROTONIX) 40 mg EC tabletIndications:ulcerat shonna esophagitis Take 1 tablet (40 mg total) by mouth 2 (two) times a day Non-compliance 02/16/2019 06/15/2019 documented as of this encounter Active and Recently Administered Medications Times are shown in [employer] ATTENDANT. Scheduled Medication Order 06/15/2019 06/16/2019 06/17/2019 enoxaparin (LOVENOX) syringe 40 mg 40 mg, subcutaneous, Daily (for enoxaparin), First dose on Nurys 06/15/19 at 2100, Indications: Deep Vein Thrombosis Prevention 2049 (Not Given - Provider: Nallely Chiu RN - Reason: Patient/family refused) 2125 (Not Given - Provider: Kelsy Gooden RN - Reason: Patient/family refused) insulin glargine (LANTUS,BASAGLAR) pen injection 18 Units 18 Units (rounded from 18.3 Units = 0.3 Units/kg ? 61 kg), subcutaneous, Nightly, First dose on Wed06/16/19 at 2145, Discontinue insulin drip 2 hours after administration of dose. Do not mix with other insulins, Indications: Diabetes Mellitus 2258 (Given - Provider: Kelsy Gooden, MARY) insulin lispro (HumaLOG) pen injection 1-3 Units 1-3 Units, subcutaneous, Nightly, First dose on Wed06/16/19 at 2215, Blood Sugar Mid Dose PM - PO patients 175 or less No insulin 176 - 200 1 unit 201 - 250 2 units 251 - 299 3 units Greater than 299 Call MD for hyperglycemia management instructions Do NOT hold for NPO status., Indications: Diabetes Mellitus 2254 (Not Given - Provider: Kelsy Gooden RN - Reason: Order parameters not met) insulin lispro (HumaLOG) pen injection 1-5 Units 1-5 Units, subcutaneous, 3 times daily with meals, First dose on 06/17/19 at 0800, Blood Sugar Mid Dose meal time - PO patients 139 or less No insulin 140 - 175 1 unit 176 - 200 2 unit 201 - 250 3 units 251 - 299 5 units Greater than 299 Call MD for hyperglycemia management instructions Do NOT hold for NPO status., Indications: Diabetes Mellitus 0733 (Not Given - Provider: Kanchan Montalvo RN - Reason: Other - Comment: on insulin drip) magnesium sulfate 2 g/50 mL in water (premix) 2 g (COMPLETED) 2 g, intravenous, Administer over 60 Minutes, Once, On Wed06/16/19 at 0800, For 1 dose, Magnesium sulfate 2 gm ivpb run X 1 dose per pharmacy electrolyte replacement protocol for magnesium +=1.5 on 06/16/2019 0742 (New Bag - Provider: Salud Del Angel, RN) metoclopramide (REGLAN) injection 2.5 mg 2.5 mg, intravenous, Administer over 1 Minutes, Every 8 hours scheduled, First dose on Wed06/16/19 at 2215 2255 (Given - Provider: Kelsy Gooden, MARY) 0656 (Given - Provider: Kelsy Gooden, MARY) ondansetron (ZOFRAN) injection 4 mg (COMPLETED) 4 mg, intravenous, Administer over 2 Minutes, Once, On Nuyrs 06/15/19 at 0646, For 1 dose, Indications: Nausea, Vomiting 0708 (Given - Provider: Charisma Stephens, MARY) potassium phosphates 23 mmol in sodium chloride 0.9% 500 mL IVPB (COMPLETED) 23 mmol, intravenous, at 84.6 mL/hr, Administer over 6 Hours, Once, On Wed06/16/19 at 0800, For 1 dose, For PERIPHERAL line administration Potassium phosphate 23 mmol ivpb run X 1 dose per pharmacy electrolyte replacement protocol for Phosphorous+=2.2 on 06/16/2019 (Potassium= 3.4) 0830 (New Bag - Provider: Salud Del Angel, MARY) potassium, sodium phosphates (PHOS-NAK) 280-160-250 mg packet 1 packet 1 packet, oral, 3 times daily before meals, First dose on 06/17/19 at 0815, For 3 doses, Each packet contains 250 mg elemental phosphorus. X 3 doses today per electrolyte replacement protocol for phos =2.5 on 06/17 0841 (Given - Provider: Kanchan Montalvo, MARY) sodium chloride 0.9% bolus 1,000 mL (COMPLETED) 1,000 mL, intravenous, at 1,000 mL/hr, Administer over 1 Hours, Once, On Nurys 06/15/19 at 0646, For 1 dose 0708 (New Bag - Provider: Charisma Stephens, MARY)0918 (Stopped - Provider: Cammie Garibay, MARY) sodium chloride 0.9% bolus 2,000 mL (CANCELED) 2,000 mL, intravenous, at 1,000 mL/hr, Administer over 2 Hours, Once, On Nurys 06/15/19 at 0828, For 1 dose 0828 (Due)1012 (Rate/Dose Change - Provider: Cammie Garibay, MARY)1122 (Stopped - Provider: Cammie Garibay, MARY) Continuous Medication Order 06/15/2019 06/16/2019 06/17/2019 dextrose 5% infusion (CANCELED) 100 mL/hr, intravenous, Continuous, Starting on Nurys 06/15/19 at 0828, Start when blood glucose less than 250 mg/dL and decrease rate of previous IV fluid infusion order. Notify MD when blood glucose less than 250 mg/dL and adjusting IV fluids. 1156 (New Bag - Provider: Ida Hair, MARY) dextrose 5% infusion 50 mL/hr, intravenous, Continuous, Starting on Nurys 06/15/19 at 2015, Start when blood glucose less than 250 mg/dL and decrease rate of previous IV fluid infusion order. Notify MD when blood glucose less than 250 mg/dL and adjusting IV fluids. 2014 (New Bag - Provider: Nallely Chiu, MARY) 0643 (New Bag - Provider: Nallely Chiu, RN)1612 (New Bag - Provider: Salud Del Angel, RN)2153 (Rate/Dose Change - Provider: Kelsy Gooden RN) 0540 (New Bag - Provider: Kelsy Gooden RN) insulin regular (HumuLIN R, NovoLIN R) 100 Units in sodium chloride 0.9% 100 mL (1 Units/mL) infusion 0-30 Units/hr (0-30 mL/hr), 1 units/mL, intravenous, Titrated, Starting on Nurys 06/15/19 at 0900, Until 06/17/19 at 1519, Indications: Hyperglycemia, Desired Range (mg/dL): 130-180 general patients, Multiplier: 0.01, Adjust rate per GlucoStabilizer program for dka order When new IV tubing is used, completely prime the tubing. Once primed, waste an additional 20 ml of insulin infusion using the IV pump prior to connecting to patient., Routine 0905 (New Bag - Provider: Key Siegel RN - Comment: per gluco stabilizer)1007 (New Bag - Provider: Cammie Garibay RN - Comment: per glucostabilizer)1117 (New Bag - Provider: Cammie Garibay RN - Comment: per glucose stabilizer)1218 (Rate/Dose Change - Provider: Ida Hair RN)1359 (Rate/Dose Change - Provider: Ida Hair RN)1518 (Rate/Dose Change - Provider: Ida Hair RN)1726 (Rate/Dose Change - Provider: Ida Hair RN)1834 (Rate/Dose Change - Provider: Ida Hair RN)1949 (Rate/Dose Change - Provider: Nallely Chiu RN)2100 (Rate/Dose Change - Provider: Nallely Chiu RN)2158 (Rate/Dose Change - Provider: Nallely Chiu, MARY)2301 (Rate/Dose Change - Provider: Nallely Chiu RN) 0015 (Rate/Dose Change - Provider: Nallely Chiu RN)0119 (Rate/Dose Change - Provider: Nallely Chiu RN)0218 (Rate/Dose Change - Provider: Nallely Chiu, MARY)0327 (Rate/Dose Change - Provider: Nallely L. Chiu, RN)0435 (Rate/Dose Change - Provider: Nallely Chiu RN)0532 (Rate/Dose Change - Provider: Nallely Chiu RN)0642 (Rate/Dose Change - Provider: Nallely Chiu RN)0921 (Rate/Dose Change - Provider: Salud Del Angel RN)1059 (Rate/Dose Change - Provider: Salud Del Angel RN)1159 (Rate/Dose Change - Provider: Salud Del Angel RN)1301 (Rate/Dose Change - Provider: Salud Del Angel RN)1404 (Rate/Dose Change - Provider: Salud Del Angel, RN)1609 (Rate/Dose Change - Provider: Salud Del Angel, MARY)1704 (Rate/Dose Change - Provider: Salud Del Angel RN)1803 (Rate/Dose Change - Provider: Salud Del Angel, MARY)1900 (Rate/Dose Change - Provider: Salud Del Angel RN)2053 (Rate/Dose Change - Provider: Kelsy Gooden RN)2300 (Stopped - Provider: Kelsy Gooden RN) 0512 (Restarted - Provider: Kelsy Gooden RN)0540 (New Bag - Provider: Kelsy Gooden RN)0616 (Rate/Dose Change - Provider: Kelsy Gooden RN)0701 (Rate/Dose Change - Provider: Kelsy Gooden, MARY)0905 (Rate/Dose Change - Provider: Kanchan Montalvo, MARY)1015 (Rate/Dose Change - Provider: Kanchan Montalvo, MARY) sodium chloride 0.45% infusion (CANCELED) 150 mL/hr, intravenous, Continuous, Starting on Nurys 06/15/19 at 0828, Decrease rate to 50 mL/hr when blood glucose less than 250 mg/dL. 1156 (New Bag - Provider: Ida Hair RN - Comment: FSBS < 250) sodium chloride 0.45% infusion (CANCELED) 50 mL/hr, intravenous, Continuous, Starting on Nurys 06/15/19 at 2015, . 2024 (Rate/Dose Change - Provider: Nallely Chiu, RN)2348 (New Bag - Provider: Nallely Chiu, RN) 0643 (New Bag - Provider: Nallely Chiu RN)1201 (Rate/Dose Change - Provider: Salud Del Angel, RN)1612 (New Bag - Provider: Salud Del Angel, RN)2153 (Stopped - Provider: Kelsy Gooden, RN) sodium chloride 0.9% infusion 75 mL (CANCELED) 75 mL, intravenous, Continuous, Starting on Wed06/16/19 at 2215, For 1 day 2253 (New Bag - Provider: Kelsy Gooden, MARY) sodium chloride 0.9% infusion 125 mL/hr, intravenous, Continuous, Starting on Wed06/17/19 at 0545 0507 (Rate/Dose Change - Provider: Kelsy Gooden, MARY) PRN Medication Order 06/15/2019 06/16/2019 06/17/2019 prochlorperazine (COMPAZINE) injection 5 mg 5 mg, intravenous, Administer over 2 Minutes, Every 6 hours PRN, nausea, vomiting, Starting on Wed06/16/19 at 2140 documented in this encounter Orders Medications Ordered That Evan ht Not Have Been Administered Count Last Ordered Date First Ordered Date insulin lispro (HumaLOG) pen injection 1-3 Units 1 06/16/2019 insulin lispro (HumaLOG) pen injection 1-5 Units 1 06/16/2019 prochlorperazine (COMPAZINE) injection 5 mg 1 06/16/2019 dextrose (D10W) 10% bolus 1-500 mL 1 2019 enoxaparin (LOVENOX) syringe 40 mg 1 2019 insulin regular bolus from bag 1-10 Units 1 06/15/2019 potassium chloride 40 mEq in sodium chloride 0.9% 500 mL IVPB 1 06/15/2019 Lab Orders Without Results Count Last Ordered D ate First Ordered Date POCT GLUCOSE DEVICE 36 06/17/2019 06/15/19 20 Nursing Count Last Ordered Date First Orde red Date NOTIFY PROVIDER (SPECIFY) 1 06/15/2019 Consult Count Last Ordered Date First Orde red Date IP CONSULT TO PARARESCUE MANAGER 1 0 IP CONSULT TO NUTRITION SERVICES 1 02/13/20 20 ADT Patient Update Count Last Ordered Date Firs t Ordered Date ED IP DECISION TO ADMIT 1 06/15/2019 documented in this encounter Care Teams Oral Surgery Assistant Relationship Specialty Start Date End Date Carrie Joseph PA [address] [place] [address] PCP - General 10/04/18 07/19/21 Warren Phillips MD [address] [place] [address] Consulting Physician Gastroenterology 02/16/19 documented as of this encounter
--- OUTSIDE RECORDS SUMMARY | 2024-05-10 18:39 | XMS_ITS | Encounter Summary ---
Author Organization [facility] Healthcare Address [address] [place] [address] Care Team Providers Care Puttying And Calking Supervisor Name Role Phone Carrie Joseph Primary Care Provider + Warren Phillips MD Unavailable [phone] Reason for Visit * Reason Comments Blood Sugar Problem Vomiting Encounter Details Date Type Department Care Team (Latest Contact Info) Description 11/26/2019 11:15 AM CDT - 12/01/2019 12:00 PM CDT Hospital Encounter [facility] [address] [place] [address] Pato Haney MD [address] [facility] [place] [address] Mann Paris Jr., MD [address] [facility] [place] [address] Roberto Carlos Ding MD [address] [facility] [place] [address] Cody Malave MD [address] [facility] [place] [address] Nausea and vomiting (Primary Dx); Increased lactic acid level; Elevated random blood glucose level Discharge Disposition: Left Against Medical Advice Social [...] on file 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 Gender Identity Not on file Sexual Orientation Not on file documented as of this encounter Last Filed Vital Signs Vital Sign Reading Time Taken Comments Blood Pressure 113/52 12/01/2019 8:32 AM CDT Pulse 112 12/01/2019 8:32 AM CDT Temperature 37.6 ??C (99.7 ??F) 12/01/2019 8:32 AM CD T Respiratory Rate 20 12/01/2019 8:32 AM CDT Oxygen Saturation 99% 12/01/2019 8:32 AM CDT Inhaled Oxygen Concentration - - Weight 75.9 kg (167 lb 5.3 oz) 12/01/2019 5:00 A M CDT Height 162.6 cm (5' 4 ) 11/26/2019 6:39 PM CDT Body Mass Index 28.72 11/26/2019 6:39 PM CDT documented in this encounter Discharge Diagnoses Diagnosis Functional dyspepsia - FUNCTIONAL DYSPEPSIA Dyspepsia and other specified disorders of function of stomach Type 1 diabetes mellitus with ketoacidosis without coma (HCC) - TYPE 1 DIABETES MELLITUS WITH KETOACIDOSIS WITHOUT COMA 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 (HCC) - TYPE 1 DIABETES MELLITUS WITH DIABETIC AUTONOMIC (POLY)NEUROPATHY Obesity, unspecified - OBESITY, UNSPECIFIED Other disorders of phosphorus metabolism - OTHER DISORDERS OF PHOSPHORUS METABOLISM Hypomagnesemia - HYPOMAGNESEMIA Disorders of magnesium metabolism Hyperkalemia - HYPERKALEMIA Hyperpotassemia Cannabis use, unspecified, uncomplicated - CANNABIS USE, UNSPECIFIED, UNCOMPLICATED Major depressive disorder, single episode, unspecified - MAJOR DEPRESSIVE DISORDER, SINGLE EPISODE, UNSPECIFIED Anxiety disorder, unspecified - ANXIETY DISORDER, UNSPECIFIED Gastroparesis - GASTROPARESIS Contact with and (suspected) exposure to other viral communicable diseases - CONTACT WITH AND (SUSPECTED) EXPOSURE TO OTHER VIRAL COMMUNICABLE DISEASES director 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 providers found Primary Care Physician at Discharge: KEANU Conway [phone] Admission Date: 11/26/2019 Discharge Date: 12/01/2019 Primary Discharge Diagnosis: Principal Problem: Bilious vomiting with nausea Active Problems: Uncontrolled type 1 diabetes mellitus with hyperglycemia (CMS/HCC) Lactic acidosis Esophagitis Secondary Discharge Diagnosis: Principal Problem: Bilious vomiting with nausea Active Problems: Uncontrolled type 1 diabetes mellitus with hyperglycemia (CMS/HCC) Lactic acidosis Esophagitis Resolved Problems: No resolved hospital problems. DETAILS OF HOSPITAL STAY Presenting Problem/History of Present Illness: Bilious vomiting with nausea Hospital Course: 1. Diabetic ketoacidosis: ??Patient has been started on GlucoStabilizer. ??Continue IV fluid, insulin drip, BMP,??NPO. 2. Hyperkalemia resolved, now with hypolemia, replete, monitor 3. Sinus tachycardia: ??EKG showed sinus tachycardia. ??IV Lopressor x1. ??Continue IV fluid. ??Obtain echocardiogram. 4. Recurrent nausea and vomiting: ??Likely secondary to delayed gastric emptying and hyperemesis from use of marijuana. ??GI following. ??Continue nortriptyline, Ativan, IV fluid, Reglan, Protonix. ??Patient has history of ulcerative esophagitis in January 2019. Continue Protonix. 5. Depression/anxiety: ??Resume medications when she is able to take p.o.. 6. Obesity: ??Will need to address with PCP when in stable state. 7. Hypomagnesemia-replete 8. Hypophosphetemia-replete Pt still repleting electrolytes however able to transition off insulin drip. Refused to complete treatment and left AMA Discharge Details Physical Exam at Discharge: Discharge Condition: Left AMA Pulse: 112 Resp: 20 BP: 113/52 Temp: 37.6 ??C (99.7 ??F) Weight: 75.9 kg (167 lb 5.3 oz) BP 113/52 (BP Location: Left arm, Patient Position: Sitting) Pulse 112 Temp 37.6 ??C (99.7 ??F)(Temporal) Resp 20 Ht 162.6 cm (5' 4 ) Wt 75.9 kg (167 lb 5.3 oz) SpO2 99% BMI 28.72 kg/m?? Pertinent Exam Findings at Discharge: Left AMA Labs at discharge: Recent Results (from the past 24 hour(s)) POCT glucose Collection Time: 11/30/19 6:38 PM Result Value Ref Range Glucose, POC 140 (H) 71 - 98 mg/dL Basic metabolic panel Collection Time: 11/30/19 7:39 PM Result Value Ref Range Sodium 135 135 - 145 mmol/L Potassium, pl 3.1 (L) 3.3 - 4.9 mmol/L Chloride 103 97 - 110 mmol/L CO2 21 (L) 22 - 32 mmol/L Anion gap 11 2 - 15 mmol/L BUN 7 (L) 8 - 25 mg/dL Creatinine 0.38 (L) 0.60 - 1.10 mg/dL Glucose 129 70 - 199 mg/dL Calcium 7.5 (L) 8.5 - 10.3 mg/dL Magnesium Collection Time: 11/30/19 7:39 PM Result Value Ref Range Magnesium 2.2 1.4 - 2.5 mg/dL Phosphorus Collection Time: 11/30/19 7:39 PM Result Value Ref Range Phosphorus, pl 1.2 (L) 2.3 - 4.5 mg/dL eGFR Collection Time: 11/30/19 7:39 PM Result Value Ref Range GFR 149 mL/min/1.73 m2 POCT glucose Collection Time: 11/30/19 7:43 PM Result Value Ref Range Glucose, POC 120 (H) 71 - 98 mg/dL POCT glucose Collection Time: 11/30/19 8:50 PM Result Value Ref Range Glucose, POC 98 71 - 98 mg/dL POCT glucose Collection Time: 11/30/19 9:27 PM Result Value Ref Range Glucose, POC 102 (H) 71 - 98 mg/dL POCT glucose Collection Time: 11/30/19 9:57 PM Result Value Ref Range Glucose, POC 99 (H) 71 - 98 mg/dL POCT glucose Collection Time: 11/30/19 11:24 PM Result Value Ref Range Glucose, POC 207 (H) 71 - 98 mg/dL POCT glucose Collection Time: 12/01/19 2:08 AM Result Value Ref Range Glucose, POC 213 (H) 71 - 98 mg/dL POCT glucose Collection Time: 12/01/19 5:02 AM Result Value Ref Range Glucose, POC 159 (H) 71 - 98 mg/dL Basic metabolic panel Collection Time: 12/01/19 5:05 AM Result Value Ref Range Sodium 135 135 - 145 mmol/L Potassium, pl 3.1 (L) 3.3 - 4.9 mmol/L Chloride 103 97 - 110 mmol/L CO2 23 22 - 32 mmol/L Anion gap 10 2 - 15 mmol/L BUN 5 (L) 8 - 25 mg/dL Creatinine 0.27 (L) 0.60 - 1.10 mg/dL Glucose 172 70 - 199 mg/dL Calcium 7.4 (L) 8.5 - 10.3 mg/dL Magnesium Collection Time: 12/01/19 5:05 AM Result Value Ref Range Magnesium 2.2 1.4 - 2.5 mg/dL Phosphorus Collection Time: 12/01/19 5:05 AM Result Value Ref Range Phosphorus, pl 0.8 (Critical) 2.3 - 4.5 mg/dL eGFR Collection Time: 12/01/19 5:05 AM Result Value Ref Range GFR 167 mL/min/1.73 m2 POCT glucose Collection Time: 12/01/19 8:34 AM Result Value Ref Range Glucose, POC 192 (H) 71 - 98 mg/dL Discharge Disposition: Left Against Medical Advice Prior Discharge Instructions: Discharge Medications: Your medication list ASK your doctor about these medications insulin glargine 100 unit/mL (3 mL) insulin pen Commonly known as: LANTUS,BASAGLAR insulin lispro 100 unit/mL injection Commonly known as: HumaLOG ADMELOG U-100 INSULIN LISPRO SUBQ Outpatient Follow-Up: No future appointments. KEANU Conway [address] [place] [address] [place] [id number] Time Spent on Discharge: 35 minutes spent of patient care on 11/30 prior to pt leaving AMA Voice recognition software [employer] Direct was used dictate and transcribe this document. Crane Operator Cab variances may occur. Despite proofreading, typographical errors may occur. Cody Malave MD 12/01/2019 6:15 PM documented in this encounter Medications at Time [...] CHECK GLUCOSE 4 TIMES DAILY 12/01/2019 01/29/2022 documented as of this encounter Discharge Disposition Disposition Code Departure Means Destination Left Against Medical Advice documented in this encounter Progress Notes * Amanda Smith RN - 12/01/2019 11:56 AM CDT Went to patients room to provide diabetes education. Patient was up in bathroom and states she is leaving AMA. Patient not interested in education at this time. * Kathryn Corrales RP - 12/01/2019 6:16 AM CDT Electrolyte monitoring performed by pharmacy on labs from 11/30 050(date & time), Na+=135 K+=3.1 Mg+=2.2 Phos=0.8 Kphos. 04 mmole/kg, 30 mmole IV x 1 replacement ordered. Pharmacy will continue to follow daily. Thank you, Kathryn Corrales formerly [facility] Pharmacy department * Cody Malave MD - 11/30/2019 5:40 PM CDT Hospitalist Daily Progress SUBJECTIVE: Chief complaint of Chief Complaint Patient presents with ??? Blood Sugar Problem ??? Vomiting Interval History: Pt admitted with intractable n, v and developed DKA. States she is feeling a little bit better today. OBJECTIVE: Vitals: 24hr Min/Max: Temp Min: 36.6 ??C (97.9 ??F) Max: 37.6 ??C (99.6 ??F) Pulse Min: 112 Max: 140 BP Min: 92/50 Max: 139/85 Resp Min: 15 Max: 26 SpO2 Min: 98 % Max: 100 % Most Recent : Vitals: 11/30/19 1400 11/30/19 1500 11/30/19 1600 11/30/19 1700 BP: 125/70 98/53 115/67 107/66 BP Location: Patient Position: Pulse: 122 112 123 112 Resp: 24 23 21 25 Temp: 37.3 ??C (99.1 ??F) TempSrc: SpO2: 100% 99% 100% 100% Weight: Height: I/O last 2 completed shifts: In: 3655.6 [I.V.:3655.6] Out: 1050 [Urine:1050] I/O this shift: In: 2698 [I.V.:2698] Out: 1300 [Urine:1300] Physical Exam Constitutional: Appearance: Normal appearance. HENT: Head: Normocephalic and atraumatic. Nose: Nose normal. Eyes: Extraocular Movements: Extraocular movements intact. Pupils: Pupils are equal, round, and reactive to light. Neck: Musculoskeletal: Normal range of motion and neck supple. Cardiovascular: Rate and Rhythm: Regular rhythm. Tachycardia present. Pulses: Normal pulses. Heart sounds: Normal heart sounds. Pulmonary: Effort: Pulmonary effort is normal. Breath sounds: Normal breath sounds. Abdominal: General: Abdomen is flat. Bowel sounds are normal. Palpations: Abdomen is soft. Musculoskeletal: Normal range of motion. Skin: General: Skin is dry. Neurological: General: No focal deficit present. Mental Status: She is alert. Psychiatric: Mood and Affect: Mood normal. Behavior: Behavior normal. Lab/Radiology/Diagnostic Review: Recent Results (from the past 24 hour(s)) POCT glucose Collection Time: 11/29/19 5:50 PM Result Value Ref Range Glucose, POC 111 (H) 71 - 98 mg/dL Basic metabolic panel Collection Time: 11/29/19 6:08 PM Result Value Ref Range Sodium 128 (L) 135 - 145 mmol/L Potassium, pl 4.0 3.3 - 4.9 mmol/L Chloride 103 97 - 110 mmol/L CO2 7 (L) 22 - 32 mmol/L Anion gap 18 (H) 2 - 15 mmol/L BUN 15 8 - 25 mg/dL Creatinine 0.44 (L) 0.60 - 1.10 mg/dL Glucose 139 70 - 199 mg/dL Calcium 8.7 8.5 - 10.3 mg/dL eGFR Collection Time: 11/29/19 6:08 PM Result Value Ref Range GFR 142 mL/min/1.73 m2 POCT glucose Collection Time: 11/29/19 6:45 PM Result Value Ref Range Glucose, POC 123 (H) 71 - 98 mg/dL Blood gas, arterial Collection Time: 11/29/19 7:31 PM Result Value Ref Range pH, Art 7.32 (L) 7.35 - 7.45 PCO2, Arterial 20 (Critical) 35 - 45 mmHg PO2, Arterial 129 (H) 83 - 108 mmHg HCO3 Art (Calculated) 10 (L) 20 - 30 mmol/L BE, art -14 mmol/L O2 Sat Art (Measured) 100 (H) 90 - 95 % POCT glucose Collection Time: 11/29/19 7:47 PM Result Value Ref Range Glucose, POC 148 (H) 71 - 98 mg/dL POCT glucose Collection Time: 11/29/19 8:47 PM Result Value Ref Range Glucose, POC 135 (H) 71 - 98 mg/dL POCT glucose Collection Time: 11/29/19 9:52 PM Result Value Ref Range Glucose, POC 110 (H) 71 - 98 mg/dL Basic metabolic panel Collection Time: 11/29/19 10:02 PM Result Value Ref Range Sodium 132 (L) 135 - 145 mmol/L Potassium, pl 3.2 (L) 3.3 - 4.9 mmol/L Chloride 104 97 - 110 mmol/L CO2 14 (L) 22 - 32 mmol/L Anion gap 14 2 - 15 mmol/L BUN 14 8 - 25 mg/dL Creatinine 0.46 (L) 0.60 - 1.10 mg/dL Glucose 114 70 - 199 mg/dL Calcium 8.6 8.5 - 10.3 mg/dL eGFR Collection Time: 11/29/19 10:02 PM Result Value Ref Range GFR 140 mL/min/1.73 m2 POCT glucose Collection Time: 11/29/19 10:47 PM Result Value Ref Range Glucose, POC 122 (H) 71 - 98 mg/dL POCT glucose Collection Time: 11/30/19 12:04 AM Result Value Ref Range Glucose, POC 105 (H) 71 - 98 mg/dL Basic metabolic panel Collection Time: 11/30/19 12:53 AM Result Value Ref Range Sodium 128 (L) 135 - 145 mmol/L Potassium, pl 3.2 (L) 3.3 - 4.9 mmol/L Chloride 102 97 - 110 mmol/L CO2 12 (L) 22 - 32 mmol/L Anion gap 14 2 - 15 mmol/L BUN 12 8 - 25 mg/dL Creatinine 0.36 (L) 0.60 - 1.10 mg/dL Glucose 149 70 - 199 mg/dL Calcium 8.1 (L) 8.5 - 10.3 mg/dL eGFR Collection Time: 11/30/19 12:53 AM Result Value Ref Range GFR 152 mL/min/1.73 m2 POCT glucose Collection Time: 11/30/19 1:13 AM Result Value Ref Range Glucose, POC 131 (H) 71 - 98 mg/dL POCT glucose Collection Time: 11/30/19 1:59 AM Result Value Ref Range Glucose, POC 130 (H) 71 - 98 mg/dL POCT glucose Collection Time: 11/30/19 3:04 AM Result Value Ref Range Glucose, POC 148 (H) 71 - 98 mg/dL POCT glucose Collection Time: 11/30/19 4:04 AM Result Value Ref Range Glucose, POC 112 (H) 71 - 98 mg/dL Basic metabolic panel Collection Time: 11/30/19 5:00 AM Result Value Ref Range Sodium 130 (L) 135 - 145 mmol/L Potassium, pl 2.8 (Critical) 3.3 - 4.9 mmol/L Chloride 100 97 - 110 mmol/L CO2 15 (L) 22 - 32 mmol/L Anion gap 14 2 - 15 mmol/L BUN 12 8 - 25 mg/dL Creatinine 0.37 (L) 0.60 - 1.10 mg/dL Glucose 118 70 - 199 mg/dL Calcium 8.4 (L) 8.5 - 10.3 mg/dL eGFR Collection Time: 11/30/19 5:00 AM Result Value Ref Range GFR 151 mL/min/1.73 m2 POCT glucose Collection Time: 11/30/19 5:14 AM Result Value Ref Range Glucose, POC 105 (H) 71 - 98 mg/dL POCT glucose Collection Time: 11/30/19 6:13 AM Result Value Ref Range Glucose, POC 128 (H) 71 - 98 mg/dL POCT glucose Collection Time: 11/30/19 7:22 AM Result Value Ref Range Glucose, POC 132 (H) 71 - 98 mg/dL CBC with auto differential Collection Time: 11/30/19 8:15 AM Result Value Ref Range WBC 9.0 3.8 - 9.9 K/cumm Hgb 13.4 11.9 - 15.5 g/dL Hct 36.7 35.6 - 45.5 % Plt 287 150 - 400 K/cumm MPV 8.5 (L) 9.1 - 12.3 fL RBC 4.47 3.90 - 5.20 M/cumm MCV 82.1 81.3 - 96.4 fL MCH 30.0 27.1 - 33.3 pg MCHC 36.5 (H) 32.3 - 35.7 g/dL RDW CV 13.0 11.1 - 14.9 % RDW SD 38.9 35.7 - 48.1 fL NRBC abs 0.00 0.00 - 0.01 K/cumm Basic metabolic panel Collection Time: 11/30/19 8:15 AM Result Value Ref Range Sodium 133 (L) 135 - 145 mmol/L Potassium, pl 3.1 (L) 3.3 - 4.9 mmol/L Chloride 103 97 - 110 mmol/L CO2 16 (L) 22 - 32 mmol/L Anion gap 14 2 - 15 mmol/L BUN 10 8 - 25 mg/dL Creatinine 0.34 (L) 0.60 - 1.10 mg/dL Glucose 147 70 - 199 mg/dL Calcium 7.9 (L) 8.5 - 10.3 mg/dL Differential, auto Collection Time: 11/30/19 8:15 AM Result Value Ref Range Neutrophil abs 5.9 1.7 - 6.5 K/cumm Imm gran abs 0.1 0.0 - 0.1 K/cumm Lymphocyte abs 1.8 0.8 - 3.3 K/cumm Monocyte abs 1.2 (H) 0.2 - 0.8 K/cumm Eosinophil abs 0.0 0.0 - 0.5 K/cumm Basophil abs 0.0 0.0 - 0.1 K/cumm Neutrophil pct 65.6 % Imm gran pct 0.6 % Lymphocyte pct 20.1 % Monocyte pct 13.3 % Eosinophil pct 0.3 % Basophil pct 0.1 % eGFR Collection Time: 11/30/19 8:15 AM Result Value Ref Range GFR 155 mL/min/1.73 m2 POCT glucose Collection Time: 11/30/19 8:28 AM Result Value Ref Range Glucose, POC 141 (H) 71 - 98 mg/dL POCT glucose Collection Time: 11/30/19 9:33 AM Result Value Ref Range Glucose, POC 61 (L) 71 - 98 mg/dL Magnesium Collection Time: 11/30/19 9:34 AM Result Value Ref Range Magnesium 1.7 1.4 - 2.5 mg/dL Phosphorus Collection Time: 11/30/19 9:34 AM Result Value Ref Range Phosphorus, pl <0.4 (Critical) 2.3 - 4.5 mg/dL POCT glucose Collection Time: 11/30/19 9:34 AM Result Value Ref Range Glucose, POC 51 (Critical) 71 - 98 mg/dL POCT glucose Collection Time: 11/30/19 9:52 AM Result Value Ref Range Glucose, POC 159 (H) 71 - 98 mg/dL POCT glucose Collection Time: 11/30/19 10:01 AM Result Value Ref Range Glucose, POC 159 (H) 71 - 98 mg/dL POCT glucose Collection Time: 11/30/19 10:54 AM Result Value Ref Range Glucose, POC 234 (H) 71 - 98 mg/dL POCT glucose Collection Time: 11/30/19 11:56 AM Result Value Ref Range Glucose, POC 288 (H) 71 - 98 mg/dL Basic metabolic panel Collection Time: 11/30/19 12:14 PM Result Value Ref Range Sodium 130 (L) 135 - 145 mmol/L Potassium, pl 3.3 3.3 - 4.9 mmol/L Chloride 99 97 - 110 mmol/L CO2 12 (L) 22 - 32 mmol/L Anion gap 19 (H) 2 - 15 mmol/L BUN 8 8 - 25 mg/dL Creatinine 0.34 (L) 0.60 - 1.10 mg/dL Glucose 304 (H) 70 - 199 mg/dL Calcium 7.7 (L) 8.5 - 10.3 mg/dL Magnesium Collection Time: 11/30/19 12:14 PM Result Value Ref Range Magnesium 1.6 1.4 - 2.5 mg/dL Phosphorus Collection Time: 11/30/19 12:14 PM Result Value Ref Range Phosphorus, pl 0.5 (Critical) 2.3 - 4.5 mg/dL eGFR Collection Time: 11/30/19 12:14 PM Result Value Ref Range GFR 155 mL/min/1.73 m2 POCT glucose Collection Time: 11/30/19 1:21 PM Result Value Ref Range Glucose, POC 253 (H) 71 - 98 mg/dL POCT glucose Collection Time: 11/30/19 2:28 PM Result Value Ref Range Glucose, POC 125 (H) 71 - 98 mg/dL POCT glucose Collection Time: 11/30/19 3:27 PM Result Value Ref Range Glucose, POC 83 71 - 98 mg/dL Basic metabolic panel Collection Time: 11/30/19 3:45 PM Result Value Ref Range Sodium 135 135 - 145 mmol/L Potassium, pl 3.2 (L) 3.3 - 4.9 mmol/L Chloride 104 97 - 110 mmol/L CO2 18 (L) 22 - 32 mmol/L Anion gap 13 2 - 15 mmol/L BUN 7 (L) 8 - 25 mg/dL Creatinine 0.35 (L) 0.60 - 1.10 mg/dL Glucose 65 (L) 70 - 199 mg/dL Calcium 7.9 (L) 8.5 - 10.3 mg/dL Magnesium Collection Time: 11/30/19 3:45 PM Result Value Ref Range Magnesium 2.6 (H) 1.4 - 2.5 mg/dL Phosphorus Collection Time: 11/30/19 3:45 PM Result Value Ref Range Phosphorus, pl 0.8 (Critical) 2.3 - 4.5 mg/dL eGFR Collection Time: 11/30/19 3:45 PM Result Value Ref Range GFR 153 mL/min/1.73 m2 POCT glucose Collection Time: 11/30/19 4:31 PM Result Value Ref Range Glucose, POC 100 (H) 71 - 98 mg/dL POCT glucose Collection Time: 11/30/19 5:36 PM Result Value Ref Range Glucose, POC 133 (H) 71 - 98 mg/dL ASSESSMENT/PLAN: Principal Problem: Bilious vomiting with nausea Active Problems: Uncontrolled type 1 diabetes mellitus with hyperglycemia ([facility]) Lactic acidosis Esophagitis 1. Diabetic ketoacidosis: Patient has been started on GlucoStabilizer. Continue IV fluid, insulin drip, BMP, NPO. 2. Hyperkalemia resolved, now with hypolemia, replete, monitor 3. Sinus tachycardia: EKG showed sinus tachycardia. IV Lopressor x1. Continue IV fluid. Obtain echocardiogram. 4. Recurrent nausea and vomiting: Likely secondary to delayed gastric emptying and hyperemesis fromuse of marijuana. GI following. Continue nortriptyline, Ativan, IV fluid, Reglan, Protonix. Patienthas history of ulcerative esophagitis in January 2019. Continue Protonix. 5. Depression/anxiety: Resume medications when she is able to take p.o.. 6. Obesity: Will need to address with PCP when in stable state. 7. Hypomagnesemia-replete 8. Hypophosphetemia-replete Critical care time spent addressing and replete essential electrolytes in face of DKA was 33 minutes 11/29 Full Code Voice recognition software [employer] Fluency Direct was used dictate and transcribe this document. Crane Operator Cab variances may occur. Despite proofreading, typographical errors may occur. Cody Malave MD 11/30/2019 5:40 PM * Pascual Espinal, [facility] - 11/30/2019 5:37 AM CDT Electrolyte monitoring performed by pharmacy on labs from 11/30/2019 05:00 , Na+=130 K+=2.8 Potassium chloride 40 meq ivpb run X 1 dose per pharmacy electrolyte replacement protocol for potassium +=2.8 on 11/30/2019 replacement ordered. Pharmacy will continue to follow daily. Thank you, Pascual Espinal formerly [facility] Pharmacy department * Warren Phillips MD - 11/29/2019 5:30 PM CDT GI Daily Progress Note Date of visit: 11/29/2019 Subjective: Last 24 hours records reviewed. Patient was having more dry heaving and nausea overnight and she was transferred to the intensive care unit for diabetic ketoacidosis. This afternoon she is feeling about the same. She is awake. She looks very depressed. She denies abdominal pain. She has nausea and poor appetite and she does not want to eat. No diarrhea. No dysuria. ROS: GENERAL: no fever, appetite is poor. RESPIRATORY: no shortness of breath, no cough. SKIN: no itching, no rash. EYES: no redness, no itching, no visual changes. Objective: Vital signs in last 24 hours: Temp: [36.2 ??C (97.2 ??F)-37.6 ??C (99.6 ??F)] 37.6 ??C (99.6 ??F) Pulse: [100-167] 113 Resp: [22-34] 22 BP: (96-148)/(65-90) 96/65 Intake/Output last 3 shifts: I/O last 3 completed shifts: In: 4407 [P.O.:120; I.V.:4277; IV Piggyback:10] Out: 2150 [Urine:1950; Emesis/NG output:200] Physical Exam: Patient is alert and oriented to time and place and self. Patient appears comfortable. She has obese built. Eyes: no jaundice. Lymphatics: no submandibular and no subclavicular lymphadenopathy. Lungs: CTA anteriorly. ENT: no mouth ulcers. GI: abdomen is soft, no distention, no tenderness, bowel sounds positive. Musculoskeletal: no joint swelling, no edema. Skin: no rash. Psych: mood seems depressed. No confusion. Labs and Imaging: Labs and X rays reviewed. Recent Results (from the past 24 hour(s)) POCT glucose Collection Time: 11/28/19 8:31 PM Result Value Ref Range Glucose, POC 267 (H) 71 - 98 mg/dL POCT glucose Collection Time: 11/28/19 11:50 PM Result Value Ref Range Glucose, POC 279 (H) 71 - 98 mg/dL POCT glucose Collection Time: 11/29/19 2:11 AM Result Value Ref Range Glucose, POC 302 (H) 71 - 98 mg/dL Magnesium Collection Time: 11/29/19 3:25 AM Result Value Ref Range Magnesium 2.1 1.4 - 2.5 mg/dL Basic metabolic panel Collection Time: 11/29/19 3:33 AM Result Value Ref Range Sodium 132 (L) 135 - 145 mmol/L Potassium, pl 5.4 (H) 3.3 - 4.9 mmol/L Chloride 106 97 - 110 mmol/L CO2 3 (L) 22 - 32 mmol/L Anion gap 23 (H) 2 - 15 mmol/L BUN 25 8 - 25 mg/dL Creatinine 0.70 0.60 - 1.10 mg/dL Glucose 320 (H) 70 - 199 mg/dL Calcium 9.0 8.5 - 10.3 mg/dL Hemoglobin A1c Collection Time: 11/29/19 3:33 AM Result Value Ref Range Hgb A1C 8.4 (H) 4.0 - 5.6 % Estimated Average Glucose 194 mg/dL Lactate Collection Time: 11/29/19 3:33 AM Result Value Ref Range Lactate 1.6 0.7 - 2.0 mmol/L eGFR Collection Time: 11/29/19 3:33 AM Result Value Ref Range GFR 122 mL/min/1.73 m2 POCT glucose Collection Time: 11/29/19 6:12 AM Result Value Ref Range Glucose, POC 275 (H) 71 - 98 mg/dL POCT glucose Collection Time: 11/29/19 8:17 AM Result Value Ref Range Glucose, POC 247 (H) 71 - 98 mg/dL POCT glucose Collection Time: 11/29/19 9:31 AM Result Value Ref Range Glucose, POC 163 (H) 71 - 98 mg/dL Basic metabolic panel Collection Time: 11/29/19 9:46 AM Result Value Ref Range Sodium 130 (L) 135 - 145 mmol/L Potassium, pl 4.4 3.3 - 4.9 mmol/L Chloride 106 97 - 110 mmol/L CO2 4 (L) 22 - 32 mmol/L Anion gap 20 (H) 2 - 15 mmol/L BUN 20 8 - 25 mg/dL Creatinine 0.73 0.60 - 1.10 mg/dL Glucose 206 (H) 70 - 199 mg/dL Calcium 8.7 8.5 - 10.3 mg/dL Potassium Collection Time: 11/29/19 9:46 AM Result Value Ref Range Potassium, pl 4.3 3.3 - 4.9 mmol/L eGFR Collection Time: 11/29/19 9:46 AM Result Value Ref Range GFR 116 mL/min/1.73 m2 POCT glucose Collection Time: 11/29/19 10:34 AM Result Value Ref Range Glucose, POC 168 (H) 71 - 98 mg/dL POCT glucose Collection Time: 11/29/19 11:38 AM Result Value Ref Range Glucose, POC 171 (H) 71 - 98 mg/dL POCT glucose Collection Time: 11/29/19 12:41 PM Result Value Ref Range Glucose, POC 153 (H) 71 - 98 mg/dL POCT glucose Collection Time: 11/29/19 1:37 PM Result Value Ref Range Glucose, POC 138 (H) 71 - 98 mg/dL POCT glucose Collection Time: 11/29/19 2:39 PM Result Value Ref Range Glucose, POC 117 (H) 71 - 98 mg/dL POCT glucose Collection Time: 11/29/19 3:43 PM Result Value Ref Range Glucose, POC 98 71 - 98 mg/dL POCT glucose Collection Time: 11/29/19 4:41 PM Result Value Ref Range Glucose, POC 114 (H) 71 - 98 mg/dL No results found. GI IMPRESSION: 1. Recurrent episodes of nausea vomiting likely secondary to delayed gastric emptying as well as hyperemesis from use of marijuana. 2. Depression and anxiety 3. Obesity 4. Diabetes and now DKA GI PLAN/RECOMMENDATIONS: 1. Can start clear liquids when her blood sugars controled and then slowly advance diet. 2. May need psych evaluation to address depression. 3. Continue symptomatic treatment. Voice recognition software [employer] Fluency Direct was used dictate and transcribe this document. Crane Operator Cab variances may occur. Despite proofreading, typographical errors may occur. Warren Phillips MD * Dorian MoralesHAYLEY - 11/29/2019 8:51 AM CDT An order to initiate electrolyte repletion [...] every other day. Thank you, Dorian Morales formerly [facility] department * Roberto Carlos Ding MD - 11/29/2019 8:21 AM CDT Hospitalist Daily Progress SUBJECTIVE: Chief Complaint Patient presents with ??? Blood Sugar Problem ??? Vomiting Interval History: Patient transferred to the ICU this morning for diabetic ketoacidosis. Insulin drip has been started. Patient has had no vomiting since last night. Patient had tachycardia throughout the night. Denies any abdominal pain. OBJECTIVE: Vitals: 24hr Min/Max: Temp Min: 36.2 ??C (97.2 ??F) Max: 36.4 ??C (97.6 ??F) Pulse Min: 100 Max: 167 BP Min: 105/69 Max: 148/75 Resp Min: 17 Max: 24 SpO2 Min: 100 % Max: 100 % Most Recent : Vitals: 11/29/19 0230 11/29/19 0510 11/29/19 0520 11/29/19 0635 BP: 148/75 BP Location: Right arm Patient Position: Pulse: 120 100 (!) 167 (!) 157 Resp: 24 22 Temp: 36.3 ??C (97.4 ??F) TempSrc: Temporal SpO2: 100% Weight: Height: I/O last 2 completed shifts: In: 1988 [I.V.:1979; IV Piggyback:10] Out: 2149 [Urine:1950; Emesis/NG output:200] No intake/output data recorded. Physical Exam General appearance: Patient is sleeping, but easily arousable to the voice. In no acute distress. HEENT: Atraumatic, normocephalic. Pupils equal and reactive to light. Extraocular movements intact.Moist mucous membrane. CVS: S1, S2 normal, tachycardia Respiration: Clear to auscultation bilaterally Abdomen: Soft, nontender, nondistended, bowel sounds normoactive Extremities: No pedal edema, no calf tenderness Neuro: No focal deficits Psychiatric: Normal mood and affect Lab/Radiology/Diagnostic Review: Recent Results (from the past 24 hour(s)) POCT glucose Collection Time: 11/28/19 11:48 AM Result Value Ref Range Glucose, POC 240 (H) 71 - 98 mg/dL POCT glucose Collection Time: 11/28/19 4:31 PM Result Value Ref Range Glucose, POC 268 (H) 71 - 98 mg/dL POCT glucose Collection Time: 11/28/19 8:31 PM Result Value Ref Range Glucose, POC 267 (H) 71 - 98 mg/dL POCT glucose Collection Time: 11/28/19 11:50 PM Result Value Ref Range Glucose, POC 279 (H) 71 - 98 mg/dL POCT glucose Collection Time: 11/29/19 2:11 AM Result Value Ref Range Glucose, POC 302 (H) 71 - 98 mg/dL Magnesium Collection Time: 11/29/19 3:25 AM Result Value Ref Range Magnesium 2.1 1.4 - 2.5 mg/dL Basic metabolic panel Collection Time: 11/29/19 3:33 AM Result Value Ref Range Sodium 132 (L) 135 - 145 mmol/L Potassium, pl 5.4 (H) 3.3 - 4.9 mmol/L Chloride 106 97 - 110 mmol/L CO2 3 (L) 22 - 32 mmol/L Anion gap 23 (H) 2 - 15 mmol/L BUN 25 8 - 25 mg/dL Creatinine 0.70 0.60 - 1.10 mg/dL Glucose 320 (H) 70 - 199 mg/dL Calcium 9.0 8.5 - 10.3 mg/dL Hemoglobin A1c Collection Time: 11/29/19 3:33 AM Result Value Ref Range Hgb A1C 8.4 (H) 4.0 - 5.6 % Estimated Average Glucose 194 mg/dL Lactate Collection Time: 11/29/19 3:33 AM Result Value Ref Range Lactate 1.6 0.7 - 2.0 mmol/L eGFR Collection Time: 11/29/19 3:33 AM Result Value Ref Range GFR 122 mL/min/1.73 m2 POCT glucose Collection Time: 11/29/19 6:12 AM Result Value Ref Range Glucose, POC 275 (H) 71 - 98 mg/dL POCT glucose Collection Time: 11/29/19 8:17 AM Result Value Ref Range Glucose, POC 247 (H) 71 - 98 mg/dL ASSESSMENT/PLAN: 1. Diabetic ketoacidosis: Patient has been started on GlucoStabilizer. Continue IV fluid, insulin drip, BMP, NPO. 2. Hyperkalemia: Patient currently on insulin drip. Repeat BMP. 3. Sinus tachycardia: EKG showed sinus tachycardia. IV Lopressor x1. Continue IV fluid. Obtain echocardiogram. 4. Recurrent nausea and vomiting: Likely secondary to delayed gastric emptying and hyperemesis fromuse of marijuana. GI following. Continue nortriptyline, Ativan, IV fluid, Reglan, Protonix. Patienthas history of ulcerative esophagitis in January 2019. Continue Protonix. 5. Depression/anxiety: Resume medications when she is able to take p.o.. 6. Obesity: Will awake overnight counselor on healthier lifestyle once the patient is more awake and MDM: Moderate Time spent: 25 minutes Principal Problem: Bilious vomiting with nausea Active Problems: Uncontrolled type 1 diabetes mellitus with hyperglycemia ([facility]) Lactic acidosis Esophagitis Voice recognition software [employer] Direct was used dictate and transcribe this document. Crane Operator Cab variances may occur. Despite proofreading, typographical errors may occur. Roberto Carlos Ding MD [facility] Hospitalist Service * Ayana Prado MD - 11/29/2019 3:19 AM CDT Notified by Medical Record Specialist that RN concerned about patients HR and RR and considering calling a MENTAL HEALTH TECHNICIAN. I was notified earlier this evening at 0023 that patients HR was 110 and RR was 22 and patient was still having bilious emesis. Patient has a history of sinus tachycardia and review of available EKG in [facility] showed patient has not had a HR <100 since 01/2018. Patient has been refusing all medications (reglan, protonix, ativan, nortriptyline) except insulin and IVFs for the past 36hours. She last received reglan at 1402 on 11/27/19 and protonix at 0556 on 11/27/19. She has refused both ativan and nortriptyline that was ordered by Dr. Phillips and has not received either of those medications at all. Prior to RN notifying greenhouse instructor re: patient, patient apparently awoke stating herheart was racing. I was not notified that patient had awoken complaining of heart racing by RN but was notified that patients BS was 302 at 0211 for which I advised RN to give the 299 dose of insulinfrom pts SSI. I explained to RNs that it is expected that patient would be tachycardic and tachypneic when she is feeling unwell with vomiting and dry heaving. I explained to RNs that we are limited in our ability to help patient if she is refusing her medications. I explained to RNs that patient has the right to refuse medications. I explained to RN that unless patient is willing to take medicati ons ordered that she will continue to feel unwell and be tachycardic and tachypneic due to discomfort. RNs obtained an EKG prior to my arrival to the floor and it shows sinus tachycardia with HR 155. I went to speak with patient and asked why she has been refusing all her medications and she stated they are not working . When asked how she knew they weren't working as she had not received them pt had no response. I advised patient that we are not able to help her if she is refusing medicationsthat are being prescribed to her. I advised her that we would not know whether the medications we have her on are working or not if she does not take them. I advised her that if she was taking the medications that have been ordered for her and she does not improve then we would try alternative treatments but as she has not been taking the medications, there is no way of knowing whether they work or not. Patient had agreed to receive reglan and protonix with RN. Will also give patient a 1L NS bolus. Patient requesting a cup of ice water and patient advised that she should not have that as it can make her symptoms worse. Will make patient NPO. Patient was tachypneic when I was speaking with her and RN advised to have AM labs drawn now. Will add a lactate. ADDENDUM AM labs resulted and patient is in DKA. Unfortunately there are no ICU beds available currently. Will plan to transfer patient to ICU at 7am for glucostabilizer. RN advised to place patient on tele and continue to monitor for now. * Warren Phillips MD - 11/28/2019 5:07 PM CDT GI Daily Progress Note Date of visit: 11/28/2019 Subjective: Last 24 hours records reviewed. Patient is doing little better. She looks depressed today. She is sleeping most of the day. No vomiting but nausea. Her appetite is down. No other major issues. Her blood sugar still elevated. ROS: GENERAL: no fever, appetite is poor. RESPIRATORY: no shortness of breath, no cough. SKIN: no itching, no rash. EYES: no redness, no itching, no visual changes. Objective: Vital signs in last 24 hours: Temp: [36.1 ??C (96.9 ??F)-36.8 ??C (98.2 ??F)] 36.4 ??C (97.6 ??F) Pulse: [102-130] 102 Resp: [17-24] 17 BP: (121-141)/(57-74) 141/74 Intake/Output last 3 shifts: I/O last 3 completed shifts: In: 4708 [P.O.:420; I.V.:4278; IV Piggyback:10] Out: 250 [Emesis/NG output:250] Physical Exam: Patient is alert and oriented to time and place and self. Patient appears comfortable. Eyes: no jaundice. Lymphatics: no submandibular and no subclavicular lymphadenopathy. Lungs: CTA anteriorly. ENT: no mouth ulcers. GI: abdomen is soft, no distention, no tenderness, bowel sounds positive. Musculos keletal: no joint swelling, no edema. Skin: no rash. Psych: mood seems normal. No confusion. Labs and Imaging: Labs and X rays reviewed. Recent Results (from the past 24 hour(s)) POCT glucose Collection Time: 11/27/19 8:30 PM Result Value Ref Range Glucose, POC 223 (H) 71 - 98 mg/dL POCT glucose Collection Time: 11/27/19 11:52 PM Result Value Ref Range Glucose, POC 194 (H) 71 - 98 mg/dL POCT glucose Collection Time: 11/28/19 1:56 AM Result Value Ref Range Glucose, POC 216 (H) 71 - 98 mg/dL POCT glucose Collection Time: 11/28/19 5:21 AM Result Value Ref Range Glucose, POC 220 (H) 71 - 98 mg/dL POCT glucose Collection Time: 11/28/19 7:24 AM Result Value Ref Range Glucose, POC 234 (H) 71 - 98 mg/dL POCT glucose Collection Time: 11/28/19 11:48 AM Result Value Ref Range Glucose, POC 240 (H) 71 - 98 mg/dL POCT glucose Collection Time: 11/28/19 4:31 PM Result Value Ref Range Glucose, POC 268 (H) 71 - 98 mg/dL No results found. GI IMPRESSION: 1. Recurrent episodes of nausea vomiting likely secondary to delayed gastric emptying as well as hyperemesis from use of marijuana. 2. Depression and anxiety 3. Obesity 4. Diabetes GI PLAN/RECOMMENDATIONS: 1. Advanced strict low-fiber diabetic low-fat diet. 2. Start nortriptyline 10 mg at night. 3. Ativan 0.5 mg once daily 4. Decrease IV fluid 5. Check hemoglobin A1c in the morning 6. Continue Reglan. Continue Protonix. Follow-up progress. Voice recognition software [employer] was used dictate and transcribe this document. Crane Operator Cab variances may occur. Despite proofreading, typographical errors may occur. Warren Phillips MD * Shonda Marino NP - 11/28/2019 11:47 AM CDT [facility] Hospitalist Service Progress Note Patient Name: Karina Menjivar Patient : 1995 Age/Sex: 24 y.o. female Room/Bed: [id number] Admission Date/Time: 11/26/2019 11:15 AM Date: 11/28/2019 Time: 11:48 AM Chief Complaint: dry heaves, nausea Subjective: Today the patient states she still feels the same. She has not vomited this morning but continues to have dry heaves. Unable to tolerate advancing her diet. No pain reported other than a mild headache Allergies: No Known Allergies Current Medication List: Scheduled Meds:enoxaparin, 40 mg, subcutaneous, Daily-2100 insulin glargine, 10 Units, subcutaneous, Nightly insulin lispro, 1-3 Units, subcutaneous, Q6H BOB LORazepam, 0.5 mg, oral, BID metoclopramide, 10 mg, intravenous, Q8H BOB pantoprazole, 40 mg, intravenous, Q24H BOB sodium chloride 0.9%, 0.5-20 mL, intra-catheter, Q8H BOB Continuous Infusions:sodium chloride 0.9%, 100 mL/hr, Last Rate: 100 mL/hr (11/28/19 0810) PRN Meds:??? acetaminophen ??? bisacodyl EC ??? dextrose OR dextrose ??? glucagon ??? magnesium hydroxide ??? mineral oil ??? ondansetron ??? ondansetron ??? sodium chloride 0.9% Objective: Vitals: Vitals: 11/27/19 1506 11/27/19 2341 11/28/19 0718 11/28/19 0800 BP: 142/75 124/73 121/57 BP Location: Right arm Patient Position: Lying Pulse: 115 112 (!) 130 110 Resp: 16 18 Temp: 36.8 ??C (98.3 ??F) 36.8 ??C (98.2 ??F) 36.1 ??C (96.9 ??F) TempSrc: Temporal Temporal Temporal SpO2: 100% 100% 100% Weight: Height: Physical Exam: GENERAL:? A&O x4, appears ill, no acute distress HEENT:?No conjunctival injection, mucous membranes appear dry, face flushed NEURO:?PERRL, EOMI, moves all extremities CVS:?S1-S2, tachycardic LUNGS:?Clear to auscultation bilaterally ABDOMEN:?Positive bowel sounds, soft, epigastric tenderness to palpation EXT:?No edema in lower extremities, no tenderness to palpation. Active ROM SKIN:?Warm, dry Labs: Lab Results Component Value Date WBC 8.2 11/26/2019 HGB 14.5 11/26/2019 HCT 45.4 11/26/2019 MCV 91.3 11/26/2019 LABPLAT 388 11/26/2019 Lab Results Component Value Date GLUCOSE 240 (H) 11/28/2019 CALCIUM 9.3 11/26/2019 SODIUM 139 11/26/2019 POTASSIUM 3.6 11/26/2019 CO2 20 (L) 11/26/2019 CHLORIDE 104 11/26/2019 BUNSER 12 11/26/2019 CREATININE 0.54 (L) 11/26/2019 Pertinent Labs: I have reviewed the pertinent labs. ASSESSMENT AND PLAN: Principal Problem: ?Bilious vomiting with nausea Active Problems: ?Uncontrolled type 1 diabetes mellitus with hyperglycemia (CMS/HCC) ?Lactic acidosis ?Esophagitis ? Assessment/Plan ?? Bilious vomiting with nausea Patient has a history of gastroparesis and ulcerative esophagitis. ?? Continue on IV Reglan and Protonix, although for the last 12 hrs, patient has refused medications stating they dont work . GI following?? Continue to monitor. ??Supportive care. Clear liquid diet- currently not tolerating well, will need to continue with IV hydration ?? Esophagitis Patient diagnosed with ulcerative esophagitis in January 2019. IV Protonix. ?? GI following ?? Lactic acidosis Continue with IV fluids. ?? Uncontrolled type 1 diabetes mellitus with hyperglycemia (CMS/HCC) Sugars are in the 200s and slowly improving with insulin. ?? Patient on Lantus (increased to 10u) nightly. ?? Mid dose sliding scale Patient follows with Dr. Sanches. ?? Patients drug screen indicated current marijuana use, discussed with the patient regarding concern for hyperemesis with use. Patient very withdrawn I spent a total of 25 Face to Face minutes of which more than 50% of the time was spent in counseling and coordination of care. MDM: Dashawn Marino NP [facility] Hospitalist Service 11/28/2019 11:48 AM Cosigned by Roberto Carlos Ding MD at 11/28/2019 4:38 PM CDT * Sarita Petty RN - 11/27/2019 1:21 PM CDT 11/27/19 1321 Communications WATSON letter given? Yes WATSON letter given on: 11/27/19 WATSON Letter Given at: 1321 * Sarita Petty RN - 11/27/2019 1:21 PM CDT 11/27/19 1321 Basic Mobility - 6 Click How much [...] 3-5 steps with a railing? 4 Total 6 Click Score (range 6-24) 24 * Sarita Petty RN - 11/27/2019 1:21 PM CDT 11/27/19 1318 Information Information Obtained From Patient Referral Data Referral Source Self referral Referral Reason Discharge Planning Prior to Admission Primary Caregiver Self Support System Spouse/Significant Other Durable Medical Equipment None Living Arrangements Spouse/significant other Type of Residence Apartment Financial Resource Income Other (Comment) (wouldn't answer) Payor Source Commercial Potential Discharge Needs Anticipated discharge level of care Private residence Pt/Family agrees with Anticipated Level of Care Yes Patient expects to be discharged to: Private residence (DC plan discussed with patient. Goal is to return home-lives with a bf. 6 click=24. Indep. [place] dc is resolution of N/V. No new needs anticipated. OBS book given/WATSON signed. ) * Shonda Marino NP - 11/27/2019 12:45 PM CDT [facility] Hospitalist Service Progress Note Patient Name: Karina Menjivar Patient : 1995 Age/Sex: 24 y.o. female Room/Bed: [id number] Admission Date/Time: 11/26/2019 11:15 AM Date: 11/27/2019 Time: 12:45 PM Chief Complaint: nausea, vomiting Subjective: Today the patient states she feels miserable. She has continued to have upset stomach with nausea and dry heaving. Denies headache, fever, chills or diarrhea. Allergies: No Known Allergies Current Medication List: Scheduled Meds:enoxaparin, 40 mg, subcutaneous, Daily-2100 insulin glargine, 5 Units, subcutaneous, Nightly insulin lispro, 1-3 Units, subcutaneous, Q6H BOB pantoprazole, 40 mg, intravenous, Q24H BOB sodium chloride 0.9%, 0.5-20 mL, intra-catheter, Q8H BOB Continuous Infusions:sodium chloride 0.9%, 100 mL/hr, Last Rate: 100 mL/hr (11/27/19 1158) PRN Meds:??? acetaminophen ??? bisacodyl EC ??? dextrose OR dextrose ??? glucagon ??? magnesium hydroxide ??? metoclopramide ??? mineral oil ??? ondansetron ??? ondansetron ??? sodium chloride 0.9% Objective: Vitals: Vitals: 11/26/19 1833 11/26/19 1839 11/27/19 0038 11/27/19 0720 BP: 113/87 126/68 103/51 BP Location: Right arm Right arm Patient Position: Lying Lying Pulse: 99 100 115 Resp: 10 16 18 Temp: 37 ??C (98.6 ??F) 36.2 ??C (97.2 ??F) 36.2 ??C (97.1 ??F) TempSrc: Temporal Temporal Temporal SpO2: 100% 100% 100% Weight: 75.6 kg (166 lb 11.2 oz) 72.6 kg (160 lb) Height: 154.9 cm (5' 1 ) 162.6 cm (5' 4 ) Physical Exam: GENERAL: A&O x4, appears ill, no acute distress HEENT: No conjunctival injection, mucous membranes appear moist, face flushed NEURO: PERRL, EOMI, moves all extremities CVS: S1-S2, tachycardic LUNGS: Clear to auscultation bilaterally ABDOMEN: Positive bowel sounds, soft, epigastric tenderness to palpation EXT: No edema in lower extremities, no tenderness to palpation. Active ROM SKIN: Warm, dry Labs: Lab Results Component Value Date WBC 8.2 11/26/2019 HGB 14.5 11/26/2019 HCT 45.4 11/26/2019 MCV 91.3 11/26/2019 LABPLAT 388 11/26/2019 Lab Results Component Value Date GLUCOSE 195 (H) 11/27/2019 CALCIUM 9.3 11/26/2019 SODIUM 139 11/26/2019 POTASSIUM 3.6 11/26/2019 CO2 20 (L) 11/26/2019 CHLORIDE 104 11/26/2019 BUNSER 12 11/26/2019 CREATININE 0.54 (L) 11/26/2019 Pertinent Labs: I have reviewed the pertinent labs. ASSESSMENT AND PLAN: Principal Problem: Bilious vomiting with nausea Active Problems: Uncontrolled type 1 diabetes mellitus with hyperglycemia (CMS/HCC) Lactic acidosis Esophagitis ? Assessment/Plan Bilious vomiting with nausea Patient has a history of gastroparesis and ulcerative esophagitis. Continue on IV Reglan and Protonix. GI consult. Continue to monitor. Supportive care. Clear liquid diet Esophagitis Patient diagnosed with ulcerative esophagitis in January 2019. IV Protonix. GI consult ?? Lactic acidosis Slowly trending down. Continue with IV fluids. ?? Uncontrolled type 1 diabetes mellitus with hyperglycemia (CMS/HCC) Sugars are in the 200s and slowly improving with insulin. Patient on Lantus 5 units nightly. Mid dose sliding scale, may need to adjust based on diet. Patient follows with Dr. Sanches. I spent a total of 32 Face to Face minutes of which more than 50% of the time was spent in counseling MDM: Nadia Marino NP [facility] Hospitalist Service 11/27/2019 12:45 PM Cosigned by Mann Paris Jr., MD at 11/27/2019 4:28 PM CDT documented in this encounter H&P Notes * Ayana Prado MD - 11/27/2019 5:37 AM CDT General Medicine History and Physical Date of Encounter 11/27/2019 PCP: Carrie Joseph SUBJECTIVE Patient is a 24 y.o. female with a PMH of type 1 diabetes with gastroparesis, ulcerative esophagitis with a chief complaint of nausea and vomiting. HPI: Patient states she awoke yesterday morning with nausea and vomiting. She has had multiple episodes of emesis but denied any bloody or coffee-ground emesis. Patient has a history of recurrent nausea and vomiting. She does not know triggers her episodes. She denies any sick contacts. Denies any abdominal pain or diarrhea. Denies any fevers or chills. States her appetite is stable however she has been unable to tolerate any p.o. intake including water. Patient came to the ED for evaluation. In the ED, patient noted to have blood sugars of 388 and lactate of 3.8. She was given insulin, IV fluids and admitted for further care. Currently patient still actively vomiting. She states she is not feeling any better. She currently has bilious emesis in her emesis bag. Of note, patient had EGD in 01/2019 which showed severe ulcerative esophagitis. Denies any tobacco or street drug use including marijuana. She states she occasionally drinks alcohol but does not recall when she last had any. Past Medical History: Diagnosis Date ??? Depression [...] 3 (three) times a day before meals 11/26/2019 at Unknown time ??? insulin glargine (LANTUS,BASAGLAR) 100 unit/mL (3 mL) insulin pen Inject 10 Units under the skin daily 11/25/2019 at Unknown time ??? insulin lispro (HumaLOG) 100 unit/mL injection Inject under the skin 3 (three) times a day before meals Uses per sliding scale 1 unit per every 8 grams of carb 11/25/2019 at Unknown time No Known Allergies Social History Tobacco Use ??? Smoking status: Never Smoker ??? Smokeless tobacco: Never Used Substance Use Topics ??? Alcohol use: Not Currently Frequency: Monthly or less Family History Problem Relation Age of Onset ??? No Known Problems Mother ??? Autism Brother Review of Systems Please see HPI for pertinent positives and negatives. Otherwise patient states her energy and weight are stable. Ten point review of systems complete and otherwise negative. OBJECTIVE Vitals: Arrival Vitals Temp 11/26/19 1113 36.2 ??C (97.2 ??F) Pulse 11/26/19 1113 108 Resp 11/26/19 1113 18 BP 11/26/19 1113 146/95 SpO2 11/26/19 1113 98 % Temp src 11/26/19 1113 Temporal Heart Rate Source 11/27/19 0038 Pulse Oximetry Patient Position 11/26/19 1833 Lying BP Location 11/26/19 1833 Right arm FiO2 (%) -- 24hr Min/Max: Temp Min: 36.2 ??C (97.2 ??F) Max: 37 ??C (98.6 ??F) Pulse Min: 88 Max: 108 BP Min: 113/87 Max: 146/95 Resp Min: 10 Max: 18 SpO2 Min: 95 % Max: 100 % Most Recent : Vitals: 11/27/19 0038 BP: 126/68 Pulse: 100 Resp: 16 Temp: 36.2 ??C (97.2 ??F) SpO2: 100% No intake/output data recorded. PHYSICAL EXAM GENERAL: No acute distress although actively vomiting, appears tired, A&O x4 HEENT: No conjunctival injection, mucous membranes appear moist NEURO: PERRL, EOMI, moves all extremities CVS: S1-S2, tachycardic LUNGS: Clear to auscultation bilaterally ABDOMEN: Positive bowel sounds, soft, epigastric tenderness to palpation EXT: Nonpitting edema in lower extremities, no tenderness to palpation SKIN: Warm, dry Lab/Radiology/Diagnostic Review: Recent Results (from the past 24 hour(s)) POCT glucose Collection Time: 11/26/19 11:09 AM Result Value Ref Range Glucose, POC 268 (H) 71 - 98 mg/dL CBC with auto differential Collection Time: 11/26/19 11:33 AM Result Value Ref Range WBC 8.2 3.8 - 9.9 K/cumm Hgb 14.5 11.9 - 15.5 g/dL Hct 45.4 35.6 - 45.5 % Plt 388 150 - 400 K/cumm MPV 9.3 9.1 - 12.3 fL RBC 4.97 3.90 - 5.20 M/cumm MCV 91.3 81.3 - 96.4 fL MCH 29.2 27.1 - 33.3 pg MCHC 31.9 (L) 32.3 - 35.7 g/dL RDW CV 13.5 11.1 - 14.9 % RDW SD 45.3 35.7 - 48.1 fL NRBC abs 0.00 0.00 - 0.01 K/cumm Comprehensive metabolic panel Collection Time: 11/26/19 11:33 AM Result Value Ref Range Sodium 139 135 - 145 mmol/L Potassium, pl 3.6 3.3 - 4.9 mmol/L Chloride 104 97 - 110 mmol/L CO2 20 (L) 22 - 32 mmol/L Anion gap 14 2 - 15 mmol/L BUN 12 8 - 25 mg/dL Creatinine 0.54 (L) 0.60 - 1.10 mg/dL Glucose 275 (H) 70 - 199 mg/dL Calcium 9.3 8.5 - 10.3 mg/dL Bilirubin, total 0.3 0.1 - 1.2 mg/dL Protein, pl 7.0 6.5 - 8.5 g/dL Albumin 4.3 3.5 - 5.0 g/dL Alk phos 80 40 - 130 Units/L ALT 11 7 - 45 Units/L AST 15 10 - 45 Units/L Sepsis Lactate w/ Reflex Collection Time: 11/26/19 11:33 AM Result Value Ref Range Sepsis Lactate 3.8 (H) 0.7 - 2.0 mmol/L Blood gas, venous Collection Time: 11/26/19 11:33 AM Result Value Ref Range pH, Venous 7.43 7.32 - 7.43 PCO2, Venous 33 (L) 40 - 50 mmHg PO2, Venous 56 mmHg HCO3 Venous, Calculated 21 20 - 30 mmol/L BE, venous -2 mmol/L eGFR Collection Time: 11/26/19 11:33 AM Result Value Ref Range GFR 133 mL/min/1.73 m2 Manual Differential Collection Time: 11/26/19 11:33 AM Result Value Ref Range Differential Manual Cells Counted 100 Neutrophil abs 6.6 (H) 1.7 - 6.5 K/cumm Lymphocyte abs 1.5 0.8 - 3.3 K/cumm Monocyte abs 0.1 (L) 0.2 - 0.8 K/cumm Neutrophil pct 81.0 % Lymphocyte pct 18.0 % Monocyte pct 1.0 % RBC morphology Consistent with RBC Indicies Platelet estimate Automated Count Confirmed Urinalysis reflex to microscopic and culture Urine Collection Time: 11/26/19 12:17 PM Result Value Ref Range Color, ur Yellow Yellow Clarity, ur Clear Clear Specific gravity, ur 1.027 (H) 1.010 - 1.025 pH, urine 7.0 Protein, ur ql Negative Negative Glucose, ur ql 4+ (A) Negative Ketones, ur Trace Negative Bilirubin, ur Negative Negative Blood, ur Negative Negative Urobilinogen, ur <2.0 <2.0 mg/dL Nitrite, ur Negative Negative Leukocyte esterase, ur Negative Negative UA reflex comment Reflex conditions for microscopic UA and culture not met. COVID-19 Coronavirus RNA Nasopharyngeal Collection Time: 11/26/19 1:37 PM Result Value Ref Range COVID-19 Coronavirus RNA Negative Negative POCT glucose Collection Time: 11/26/19 1:38 PM Result Value Ref Range Glucose, POC 293 (H) 71 - 98 mg/dL POCT glucose Collection Time: 11/26/19 3:49 PM Result Value Ref Range Glucose, POC 252 (H) 71 - 98 mg/dL Sepsis Lactate w/ Reflex Collection Time: 11/26/19 7:45 PM Result Value Ref Range Sepsis Lactate 2.5 (H) 0.7 - 2.0 mmol/L POCT glucose Collection Time: 11/26/19 9:05 PM Result Value Ref Range Glucose, POC 283 (H) 71 - 98 mg/dL Sepsis Lactate w/ Reflex Collection Time: 11/26/19 10:15 PM Result Value Ref Range Sepsis Lactate 2.4 (H) 0.7 - 2.0 mmol/L POCT glucose Collection Time: 11/27/19 1:50 AM Result Value Ref Range Glucose, POC 226 (H) 71 - 98 mg/dL No results found. ASSESSMENT/PLAN Principal Problem: Bilious vomiting with nausea Active Problems: Uncontrolled type 1 diabetes mellitus with hyperglycemia ([facility]/HCC) Lactic acidosis Esophagitis Assessment/Plan * Bilious vomiting with nausea Assessment & Plan Patient has a history of gastroparesis and ulcerative esophagitis. She denies any bloody or coffee-ground emesis. Will start patient on IV Reglan and Protonix. If this regimen does not help, may needGI consult. Continue to monitor. Supportive care. NPO for now. Will also check a urine drug screen. Esophagitis Assessment & Plan Patient diagnosed with ulcerative esophagitis in January 2019. She was supposed to follow-up with Dr. Phillips in 1 month's time after discharge but does not seem like she has. She also is not on any Protonix. Will start patient on IV Protonix. May need GI evaluation during this stay. Lactic acidosis Assessment & Plan Slowly trending down. Patient still actively vomiting. Continue with IV fluids. Uncontrolled type 1 diabetes mellitus with hyperglycemia (CMS/HCC) Assessment & Plan Sugars are in the 200s and slowly improving with insulin. Patient is on Lantus 10 units nightly however as she is actively vomiting, will reduce dose to 5 units nightly. Will monitor on a mid dose sliding scale. Patient follows with Dr. Sanches. Diet. NPO DVT Prophylaxis. Lovenox Code status. Full Estimated length of stay greater than 2 midnights. Clinical Decision Making Complexity: Low Time spent 50 minutes documented in this encounter Consult Notes * Warren Phillips MD - 11/27/2019 5:39 PM CDT Gastroenterology Consult Reason for consult: gastroparesis Date of Consult: 11/27/2019 Consultation was requested by Dr. Mann Paris for nausea and vomiting. SUBJECTIVE Patient is a 24 y.o. female with complaint of recurrent episodes of nausea and vomiting often require hospitalizations. Her last hospitalization or episode was about 6 months ago. Patient's his having recurrent episodes of mainly dry heaving and nausea and sometimes vomiting. He vomited that will be ache clear bile liquid. No chest pain. No abdominal pain. No dysphagia. Patient has history of diabetes. Unfortunately she also smoke marijuana as noted in her urine test. In 2018 she had hospitalization with the same and she has severe esophagitis as well. She has 1 young child age 3. She lives with her . No history of weight loss. No blood in the stool.. Past Medical History: Diagnosis Date ??? Depression ??? Diabetes mellitus (CMS/HCC) ??? HX OTHER MEDICAL 2011 Diabetes mellitus, type 1 ??? Miscarriage Past Surgical History: Procedure Laterality Date ??? ABDOMINAL SURGERY ??? SECTION, CLASSIC 2017 ??? TONSILLECTOMY Bilateral 2002 Medications Prior to Admission Medication Sig Dispense Refill Last Dose ??? ADMELOG U-100 INSULIN LISPRO SUBQ Inject 5 Units under the skin 3 (three) times a day before meals 11/26/2019 at Unknown time ??? insulin glargine (LANTUS,BASAGLAR) 100 unit/mL (3 mL) insulin pen Inject 10 Units under the skin daily 11/25/2019 at Unknown time ??? insulin lispro (HumaLOG) 100 unit/mL injection Inject under the skin 3 (three) times a day before meals Uses per sliding scale 1 unit per every 8 grams of carb 11/25/2019 at Unknown time No Known Allergies Social History Tobacco Use ??? Smoking status: Never Smoker ??? Smokeless tobacco: Never Used Substance Use Topics ??? Alcohol use: Not Currently Frequency: Monthly or less Family History Problem Relation Age of Onset ??? No Known Problems Mother ??? Autism Brother Review of Systems Constitutional: Positive for fatigue. HENT: Negative. Eyes: Negative. Respiratory: Negative. Cardiovascular: Negative. Gastrointestinal: Positive for nausea. Endocrine: Negative. Genitourinary: Negative. Musculoskeletal: Negative. Skin: Negative. Neurological: Negative. Hematological: Negative. Psychiatric/Behavioral: Negative. Vitals: BP 142/75 Pulse 115 Temp 36.8 ??C (98.3 ??F) (Temporal) Resp 16 Ht 162.6 cm (5' 4 ) Wt 72.6 kg (160 lb) SpO2 100% BMI 27.46 kg/m?? OBJECTIVE Physical Exam: Patient is alert and oriented to time and place and self. Patient appears comfortable. Eyes: no jaundice. Lymphatics: no submandibular and no subclavicular lymphadenopathy. Lungs: CTA anteriorly. ENT: no mouth ulcers. GI: abdomen is soft, no distention, no tenderness, bowel sounds positive. Musculos keletal: no joint swelling, no edema. Skin: no rash. Psych: mood seems normal. No confusion. Lab/Radiology/Diagnostic Review: Labs and X rays reviewed. Recent Results (from the past 48 hour(s)) POCT glucose Collection Time: 11/26/19 11:09 AM Result Value Ref Range Glucose, POC 268 (H) 71 - 98 mg/dL CBC with auto differential Collection Time: 11/26/19 11:33 AM Result Value Ref Range WBC 8.2 3.8 - 9.9 K/cumm Hgb 14.5 11.9 - 15.5 g/dL Hct 45.4 35.6 - 45.5 % Plt 388 150 - 400 K/cumm MPV 9.3 9.1 - 12.3 fL RBC 4.97 3.90 - 5.20 M/cumm MCV 91.3 81.3 - 96.4 fL MCH 29.2 27.1 - 33.3 pg MCHC 31.9 (L) 32.3 - 35.7 g/dL RDW CV 13.5 11.1 - 14.9 % RDW SD 45.3 35.7 - 48.1 fL NRBC abs 0.00 0.00 - 0.01 K/cumm Comprehensive metabolic panel Collection Time: 11/26/19 11:33 AM Result Value Ref Range Sodium 139 135 - 145 mmol/L Potassium, pl 3.6 3.3 - 4.9 mmol/L Chloride 104 97 - 110 mmol/L CO2 20 (L) 22 - 32 mmol/L Anion gap 14 2 - 15 mmol/L BUN 12 8 - 25 mg/dL Creatinine 0.54 (L) 0.60 - 1.10 mg/dL Glucose 275 (H) 70 - 199 mg/dL Calcium 9.3 8.5 - 10.3 mg/dL Bilirubin, total 0.3 0.1 - 1.2 mg/dL Protein, pl 7.0 6.5 - 8.5 g/dL Albumin 4.3 3.5 - 5.0 g/dL Alk phos 80 40 - 130 Units/L ALT 11 7 - 45 Units/L AST 15 10 - 45 Units/L Sepsis Lactate w/ Reflex Collection Time: 11/26/19 11:33 AM Result Value Ref Range Sepsis Lactate 3.8 (H) 0.7 - 2.0 mmol/L Blood gas, venous Collection Time: 11/26/19 11:33 AM Result Value Ref Range pH, Venous 7.43 7.32 - 7.43 PCO2, Venous 33 (L) 40 - 50 mmHg PO2, Venous 56 mmHg HCO3 Venous, Calculated 21 20 - 30 mmol/L BE, venous -2 mmol/L eGFR Collection Time: 11/26/19 11:33 AM Result Value Ref Range GFR 133 mL/min/1.73 m2 Manual Differential Collection Time: 11/26/19 11:33 AM Result Value Ref Range Differential Manual Cells Counted 100 Neutrophil abs 6.6 (H) 1.7 - 6.5 K/cumm Lymphocyte abs 1.5 0.8 - 3.3 K/cumm Monocyte abs 0.1 (L) 0.2 - 0.8 K/cumm Neutrophil pct 81.0 % Lymphocyte pct 18.0 % Monocyte pct 1.0 % RBC morphology Consistent with RBC Indicies Platelet estimate Automated Count Confirmed Urinalysis reflex to microscopic and culture Urine Collection Time: 11/26/19 12:17 PM Result Value Ref Range Color, ur Yellow Yellow Clarity, ur Clear Clear Specific gravity, ur 1.027 (H) 1.010 - 1.025 pH, urine 7.0 Protein, ur ql Negative Negative Glucose, ur ql 4+ (A) Negative Ketones, ur Trace Negative Bilirubin, ur Negative Negative Blood, ur Negative Negative Urobilinogen, ur <2.0 <2.0 mg/dL Nitrite, ur Negative Negative Leukocyte esterase, ur Negative Negative UA reflex comment Reflex conditions for microscopic UA and culture not met. COVID-19 Coronavirus RNA Nasopharyngeal Collection Time: 11/26/19 1:37 PM Result Value Ref Range COVID-19 Coronavirus RNA Negative Negative POCT glucose Collection Time: 11/26/19 1:38 PM Result Value Ref Range Glucose, POC 293 (H) 71 - 98 mg/dL POCT glucose Collection Time: 11/26/19 3:49 PM Result Value Ref Range Glucose, POC 252 (H) 71 - 98 mg/dL Sepsis Lactate w/ Reflex Collection Time: 11/26/19 7:45 PM Result Value Ref Range Sepsis Lactate 2.5 (H) 0.7 - 2.0 mmol/L POCT glucose Collection Time: 11/26/19 9:05 PM Result Value Ref Range Glucose, POC 283 (H) 71 - 98 mg/dL Sepsis Lactate w/ Reflex Collection Time: 11/26/19 10:15 PM Result Value Ref Range Sepsis Lactate 2.4 (H) 0.7 - 2.0 mmol/L POCT glucose Collection Time: 11/27/19 1:50 AM Result Value Ref Range Glucose, POC 226 (H) 71 - 98 mg/dL POCT glucose Collection Time: 11/27/19 7:30 AM Result Value Ref Range Glucose, POC 222 (H) 71 - 98 mg/dL POCT glucose Collection Time: 11/27/19 11:34 AM Result Value Ref Range Glucose, POC 195 (H) 71 - 98 mg/dL Drugs of Abuse Screen, Urine with Reflex Confirmation Collection Time: 11/27/19 2:06 PM Result Value Ref Range Amphetamine, ur Not Detected CutOff 500ng/mL Barbiturates, ur Not Detected CutOff 200ng/mL Benzodiazepines, ur Not Detected CutOff 100ng/mL Cannabinoids, ur Detected (A) CutOff 50 ng/mL Cocaine, ur Not Detected CutOff 150ng/mL Fentanyl, Ur Not Detected Cutoff 1 ng/mL Methadone, ur Not Detected CutOff 300ng/mL Opiates, ur Not Detected CutOff 300ng/mL Oxycodone, ur Not Detected CutOff 100ng/mL Phencyclidine, ur Not Detected CutOff 25 ng/mL Urine Creatinine 45 mg/dL POCT glucose Collection Time: 11/27/19 4:48 PM Result Value Ref Range Glucose, POC 223 (H) 71 - 98 mg/dL No results found. GI IMPRESSION: 1. Recurrent emesis or nausea vomiting. Patient has risk factors for such episodes including the her diabetes as well as smoking marijuana. 2. Gastroesophageal reflux disease and history of esophagitis. GI PLAN: 1. Continue Reglan and Protonix. 2. Add Ativan 0.5 mg twice daily orally to help with the nausea symptoms. 3. Continue liquid diet but at saltine crackers and follow-up progress. Voice recognition software [employer] was used dictate and transcribe this document. [employer] variances may occur. Despite proofreading, typographical errors may occur. Warren Phillips MD documented in this encounter Nursing Notes * Gila Alba RN - 12/01/2019 11:56 AM CDT Called patient's mother Karen at [phone] and left a message to inform her that this patient left the hospital against medical advice. Left our call back number if she has questions. * Gaudencio Shin RN - 12/01/2019 6:42 AM CDT Report recevied from Obdulia HERNANDEZ in ICU. Pt transferred to U [id number] via wheelchair. Pt a/ox4, appears comfortable in bed. No complaints at this time. Will continue to monitor. * Catarina Castro RN - 11/30/2019 5:29 AM CDT Pharmacy notified potassium 2.8, needs replacement, npo, no central line * Christina Munoz RN - 11/29/2019 7:10 PM CDT Patient remains lethargic. Incontinent large amount urine this evening. Complete bath and bed change provided. Labs drawn following multiple attempts per several staff members. Results called to Dr. Ding with orders as noted. IV fluids infusing as ordered. Metoprolol 5 mg IVP given for HR 120's with moderate improvement following. Hourly fingersticks continue. Call light in reach at all times. Remains NPO. * Annette Aguirre RN - 11/29/2019 4:35 AM CDT Notified MD of early a.m. lab draw results, potassium resulted 5.4, anion gap 23, lactate 1.6, and blood glucose 320. Awaiting response. 1L NS bolus completed and Reglan and Protonix were administered as pt agreed to take after MD talked with her. * Anntete Aguirre RN - 11/29/2019 12:27 AM CDT Notified MD about increased RR and HR and unchanged blood glucose with insulin. Pt has also not hadanything to eat or drink for the past 3 days per the patient and continues to vomit brown bilious emesis. No current labs have been ordered/drawn for patient since 11/25. Morning labs include BMP and HgbA1c. MD aware. Will continue to monitor care. documented in this encounter ED Notes * Pato Haney MD - 11/26/2019 11:25 AM CDT HPI Chief Complaint Patient presents with ??? Blood Sugar Problem ??? Vomiting 11:23 AM 11/26/2019 24 y/o female with PMHx of DM I presents to ED with c/o nausea and vomiting that onset earlier thismorning. Patient states that she experienced onset of frequent n/v without any other associated symptoms or complaints. Denies fever, WALTERS, abdominal pain or diarrhea. No exposure to ill/sick individuals endorsed. Reports that symptoms feel similar to prior episodes of DKA. No modifying or alleviating factors. No other complaints expressed at this time. Patient History Patient Active Problem List Diagnosis Date Noted ??? Noncompliance with medication regimen 04/26/2019 ??? Hypomagnesemia 04/25/2019 ??? Metabolic acidosis 04/25/2019 ??? Pharyngitis 04/25/2019 ??? Hypophosphatemia 03/24/2019 ??? Diabetic ketoacidosis without coma associated with type 1 diabetes mellitus (CMS/HCC) 03/24/2019 ??? Sinus tachycardia 03/24/2019 ??? Diabetic ketoacidosis without coma associated with type 1 diabetes mellitus (CMS/HCC) ??? Esophagitis 02/15/2019 ??? Diabetic gastroparesis (CMS/HCC) 02/14/2019 ??? Lactic acidosis 02/11/2019 ??? Depression 02/11/2019 ??? Hematemesis 02/11/2019 ??? Bilious vomiting with nausea 02/10/2019 ??? Hypokalemia 11/08/2018 ??? Hyperemesis gravidarum with metabolic disturbance 11/08/2018 ??? Less than 8 weeks gestation of ??? Sepsis due to gram-negative UTI ([facility]) 05/27/2018 ??? Type 1 diabetes mellitus with ketoacidosis without coma ([facility]) ??? Hyperglycemia ??? Nausea and vomiting 01/02/2018 ??? Dehydration 01/02/2018 ??? Metabolic alkalosis 01/02/2018 ??? Uncontrolled type 1 diabetes mellitus with hyperglycemia ([facility]) 01/02/2018 ??? Ketonuria 01/02/2018 ??? Thrombocytosis ([facility]) 01/02/2018 ??? Gastroenteritis ??? Sinus tachycardia ??? Normocytic anemia Past Medical History: Diagnosis Date ??? Depression ??? Diabetes mellitus ([facility]) ??? HX OTHER MEDICAL 2011 Diabetes mellitus, [...] Frequency: Monthly or less ??? Drug use: No Social History Social History Narrative ??? Not on file Review of Systems Review of Systems Constitutional: Negative for fever. HENT: Negative for congestion. Eyes: Negative for redness. Respiratory: Negative for shortness of breath. Cardiovascular: Negative for chest pain. Gastrointestinal: Positive for nausea and vomiting. Negative for abdominal pain. Genitourinary: Negative for difficulty urinating. Musculoskeletal: Negative for joint swelling. Skin: Negative for rash. Neurological: Negative for headaches. Psychiatric/Behavioral: Negative for agitation. Physical Exam ED Triage Vitals [11/26/19 1113] Temp Pulse Resp BP SpO2 36.2 ??C (97.2 ??F) 108 18 146/95 98 % Temp src Heart Rate Source Patient Position BP Location FiO2 (%) Temporal -- -- -- -- Physical Exam Vitals signs and nursing note reviewed. Constitutional: General: She is not in acute distress. Appearance: She is well-developed. She is ill-appearing. HENT: Head: Normocephalic and atraumatic. Right Ear: External ear normal. No drainage. Left Ear: External ear normal. No drainage. Nose: No rhinorrhea. Mouth/Throat: Mouth: Mucous membranes are moist. Eyes: Extraocular Movements: Extraocular movements intact. Conjunctiva/sclera: Conjunctivae normal. Neck: Musculoskeletal: Normal range of motion. Cardiovascular: Rate and Rhythm: Normal rate and regular rhythm. Heart sounds: Normal heart sounds. No murmur. Pulmonary: Effort: Pulmonary effort is normal. No respiratory distress. Breath sounds: Normal breath sounds. Abdominal: General: Bowel sounds are normal. There is no distension. Palpations: Abdomen is soft. Tenderness: There is no abdominal tenderness. Musculoskeletal: Right lower leg: No edema. Left lower leg: No edema. Skin: General: Skin is warm and dry. Neurological: Mental Status: She is alert. Motor: Motor function is intact. Psychiatric: Behavior: Behavior is cooperative. Procedures BP 146/95 Pulse 108 Temp 36.2 ??C (97.2 ??F) (Temporal) Resp 18 Ht 154.9 cm (5' 1 ) Wt 74.8 kg (165 lb) SpO2 98% BMI 31.18 kg/m?? Labs Reviewed URINALYSIS AND REFLEX TO MICROSCOPIC AND CULTURE - Abnormal Result Value Color, ur Yellow Clarity, ur Clear Specific gravity, ur 1.027 (*) pH, urine 7.0 Protein, ur ql Negative Glucose, ur ql 4+ (*) Ketones, ur Trace Bilirubin, ur Negative Blood, ur Negative Urobilinogen, [...] tendency for uric acid stone formation. Source: [email or web address].Last revised 05-13-2017 CBC WITH AUTO DIFFERENTIAL - Abnormal WBC 8.2 Hgb 14.5 Hct 45.4 Plt 388 MPV 9.3 RBC 4.97 MCV 91.3 MCH 29.2 MCHC 31.9 (*) RDW CV 13.5 RDW SD 45.3 NRBC abs 0.00 COMPREHENSIVE METABOLIC PANEL - Abnormal Sodium 139 Potassium, pl 3.6 Chloride 104 CO2 20 (*) Anion gap 14 BUN 12 Creatinine 0.54 (*) Glucose 275 (*) Calcium 9.3 Bilirubin, total 0.3 Protein, pl 7.0 Albumin 4.3 Alk phos 80 ALT 11 AST 15 SEPSIS LACTATE WITH REFLEX - Abnormal Sepsis Lactate 3.8 (*) BLOOD GAS, VENOUS - Abnormal pH, Venous 7.43 PCO2, Venous 33 (*) PO2, Venous 56 HCO3 Venous, Calculated 21 BE, venous -2 MANUAL DIFFERENTIAL - Abnormal Differential Manual Cells Counted 100 Neutrophil abs 6.6 (*) Lymphocyte abs 1.5 Monocyte abs 0.1 (*) Neutrophil pct 81.0 Lymphocyte pct 18.0 Monocyte pct 1.0 RBC morphology Consistent with RBC Indicies Platelet estimate Automated Count Confirmed POCT GLUCOSE DEVICE - Abnormal Glucose, POC 268 (*) COVID-19 CORONAVIRUS RNA EGFR GFR 133 SEPSIS LACTATE WITH REFLEX SEPSIS LACTATE WITH REFLEX No orders to display MDM Medical Decision Making Differential Diagnosis or Management Options: 24-year-old female with history of diabetes who presents today with acute vomiting and feels like ???DKA.?? Differential diagnosis includes DKA versus HHS versus viral gastroenteritis versus other acute pathology. ED Course as of Nov 25 1322 Time: 11/25 1310 Comment: Re-evaluation the patient she is feeling mildly better at this time however she is still vomiting through the Zofran. Given her elevated lactate and decrease in bicarb will admit her for IV fluid management his symptom control to hopefully prevent DKA. By: Pato Haney MD Time: 11/25 1319 Comment: Patient admitted to Dr. Paris (Hospitalist) after discussion of history and workup findings. Requests COVID swab prior to transition to admission floor. By: Zheng Bates Time: 11/25 132 Comment: Patient admitted to the hospital in stable condition. By: Pato Haney MD Final diagnoses: Nausea and vomiting Increased lactic acid level Elevated random blood glucose level This note is prepared by Zheng Bates acting as a scribe for Pato Haney MD. I electronically signed this note at 1:23 PM on 11/26/2019. I, Pato Haney MD., have personally performed the services described in the documentation, reviewed the documentation, as recorded by the scribe in my presence, and it accurately and completely records my words and actions. Any errors in translation of speech to the EMR are related to software and not the clinician. Pato Haney MD 11/26/193 * Amina Feliciano RN - 11/26/2019 11:12 AM CDT Pt into ER with report of possible DKA. Pt reports last episode was in May. Pt states she awoke vomiting this am and cannot stop. Pt is actively vomiting in triage, clammy and shaking noted. documented in this encounter Miscellaneous Notes * Plan of Care - Srinath Kong RN - 12/01/2019 12:00 PM CDT Problem: Health Behavior: Goal: Understanding of discharge needs will improve Outcome: Progressing Problem: Health Behavior: Goal: Understanding of discharge needs will improve Outcome: Progressing Goals: Clinical Goals for the Shift: stable vs, control blood sugar, close anion gap- tolerate po nutrition Summary: called to room around 1130, pt. States she wants to go home and she wants to go home now. Dr. Malave called and aware. I talked to patient and explained the risk of leaving against medical advice, worsening of condition,coma, or . Also explained she needs to finish her potassium phosphate iv due to low level of phosphorus this am. Refused and she says I will sign AMA paper. She did sign AMA and left in stable condition. * Plan of Care - Nallely Chiu RN - 12/01/2019 5:26 AM CDT Problem: Health Behavior: Goal: Understanding [...] change in health will improve Outcome: Progressing Problem: Fluid Volume: Goal: Ability to maintain a balanced intake and output will improve Outcome: Progressing Problem: Nutritional: Goal: Maintenance of adequate nutrition will improve Outcome: Progressing Problem: Physical Regulation: Goal: Complications related to the disease process, condition or treatment will be avoided or minimized Outcome: Progressing Goal: Diagnostic test results will improve Outcome: Progressing Problem: Skin Integrity: Goal: Risk for impaired skin integrity will decrease Outcome: Progressing Problem: Gastrointestinal Goal: Minimal or absence of nausea and vomiting Description: INTERVENTIONS: 1. Assess gastrointestinal status 2. Provide a clean room free from unpleasant odors 3. Assess medication effects 4. Provided appropriate dietary choices 5. Monitor intake and output 6. Provide fluid volume management 7. Monitor diagnostic test results 8. Discuss complementary and alternative therapies Outcome: Progressing Problem: Activity: Goal: Mobility will [...] dry skin will improve Outcome: Progressing Problem: Lack of Knowledge: Goal: Ability to state ways to decrease the risk of falls will improve Outcome: Progressing Problem: Safety: Goal: Will remain free from falls Outcome: Progressing Goal: Will remain free from injury from falls Outcome: Progressing Problem: Lack of Knowledge: Goal: Verbalization of understanding the information provided will improve Outcome: Progressing Problem: Physical Regulation: Goal: Complications related to the disease process, condition or treatment will be avoided or minimized Outcome: Progressing Problem: Lack of Knowledge: Goal: Ability to describe self-care measures that may prevent or decrease complications will improve Outcome: Not Progressing Problem: Health Behavior: Goal: Ability to identify and alter actions that are detrimental to health will improve Outcome: Not Progressing Goal: Ability to identify and utilize available resources and services will improve Outcome: Not Progressing Goal: Ability to manage health-related needs will improve Outcome: Not Progressing Problem: Nutritional: Goal: Progress toward achieving an optimal weight will improve Outcome: Not Progressing Problem: Lack of Knowledge: Goal: Ability to identify appropriate dietary choices will improve Outcome: Not Progressing Goals: Clinical Goals for the Shift: stable vs, control blood sugar, close anion gap- tolerate po nutrition Summary: Last gap at 1938 was down to 11 with insulin gtt per glucostabilizer and K 3.1 and phos upto 1.2. Dr. Sewell notified and given 22 units of lantus at 2200 and a snack and insulin gtt turned off at 2300. No c/o nausea-had 2 loose stools. Voiding in adequate amounts. Will check blood sugars ac and hs and 0200. IV fluids changed to NS with 20 meq KCL at 100 ml/hr when 0200 blood sugar 213. AM labs are pending, and is on electrolyte protocol. Will be moving to medical floor. * Plan of Care - Мария Collins RN - 11/30/2019 6:27 PM CDT Problem: Health Behavior: Goal: Understanding [...] in health will improve Outcome: Not Progressing Problem: Fluid Volume: Goal: Ability to maintain a balanced intake and output will improve Outcome: Not Progressing Goals: Clinical Goals for the Shift: stable vital sign, no vomiting iprove labs and stable blood sugar Summary: Patient has no complaints, walks to toilet. Sleeps most of the time. States she is feelingbetter, no complaints of nausea, has had some ice chips. * Post-Procedure Note - Arlen Hanson RN - 11/30/2019 1:18 PM CDT Double lumen picc inserted right upper arm using sterile technique without difficulty. Placement confirmed in cavo-atrial junction per EKG (green hugo). Both lumens flush easily with good blood return. No bleeding or hematoma noted. Pt tolerated well. * Plan of Care - Catarina Castro RN - 11/30/2019 6:55 AM CDT Problem: Health Behavior: Goal: Understanding [...] will be avoided or minimized Outcome: Progressing Goal: Diagnostic test results will improve Outcome: Progressing Problem: Skin Integrity: Goal: Risk for impaired skin integrity will decrease Outcome: Progressing Problem: Gastrointestinal Goal: Minimal or absence of nausea and vomiting Description: INTERVENTIONS: 1. Assess gastrointestinal status 2. Provide a clean room free from unpleasant odors 3. Assess medication effects 4. Provided appropriate dietary choices 5. Monitor intake and output 6. Provide fluid volume management 7. Monitor diagnostic test results 8. Discuss complementary and alternative therapies Outcome: Progressing Problem: Activity: Goal: Mobility will [...] in health will improve Outcome: Not Progressing Problem: Health Behavior: Goal: Ability to identify and alter actions that are detrimental to health will improve Outcome: Not Progressing Goal: Ability to identify and utilize available resources and services will improve Outcome: Not Progressing Goal: Ability to manage health-related needs will improve Outcome: Not Progressing Problem: Nutritional: Goal: Maintenance of adequate nutrition will improve Outcome: Not Progressing Goal: Progress toward achieving an optimal weight will improve Outcome: Not Progressing Problem: Lack of Knowledge: Goal: Ability to identify appropriate dietary choices will improve Outcome: Not Progressing Problem: Nutritional: Goal: Dietary intake will improve Outcome: Not Progressing Problem: Skin Integrity: Goal: Circulation will improve to fullest extent possible Outcome: Not Progressing Problem: Lack of Knowledge: Goal: Ability to state ways to decrease the risk of falls will improve Outcome: Not Progressing Goals: Clinical Goals for the Shift: stable vital signs, no vomiting, improve labs, stable blood sugar Summary: no nausea or vomiting since midnight. Rested well. Blood sugar and Co2 level improving. Voiding adequate amount. Sinus tach in 120's on telemetry. No c/o pain. Call light within reach. Bed alarm on. * Plan of Lucas Iglesias RN - 11/29/2019 3:06 PM CDT Problem: Health Behavior: Goal: Understanding [...] change in health will improve Outcome: Progressing Problem: Fluid Volume: Goal: Ability to maintain a balanced intake and output will improve Outcome: Progressing Problem: Health Behavior: Goal: Ability to identify and alter actions that are detrimental to health will improve Outcome: Progressing Goal: Ability to identify and utilize available resources and services will improve Outcome: Progressing Goal: Ability to manage health-related needs will improve Outcome: Progressing Problem: Nutritional: Goal: Maintenance of adequate nutrition will improve Outcome: Progressing Goal: Progress toward achieving an optimal weight will improve Outcome: Progressing Problem: Physical Regulation: Goal: Complications related to the disease process, condition or treatment will be avoided or minimized Outcome: Progressing Goal: Diagnostic test results will improve Outcome: Progressing Problem: Skin Integrity: Goal: Risk for impaired skin integrity will decrease Outcome: Progressing Problem: Gastrointestinal Goal: Minimal or absence of nausea and vomiting Description: INTERVENTIONS: 1. Assess gastrointestinal status 2. Provide a clean room free from unpleasant odors 3. Assess medication effects 4. Provided appropriate dietary choices 5. Monitor intake and output 6. Provide fluid volume management 7. Monitor diagnostic test results 8. Discuss complementary and alternative therapies Outcome: Progressing Goals: Clinical Goals for the Shift: Pt to remain free of injury, GI symptoms to improve, VS and labs continue to improve Summary: Pt remains drowsy but less lethargic this afternoon, VS stable, HR improved, blood sugars hourly. * Plan of Care - Annette Aguirre RN - 11/29/2019 3:43 AM CDT Goals: Clinical Goals for the Shift: Pt to remain free of injury, GI symptoms to improve, VS and labs continue to improve Summary: Pt is alert and orientated and has been very lethargic this shift. Pt has had x1 occurrence of emesis this shift of approximately 50mL of brown watery emesis. IVF infusing at 50mL/hr. HR andRR elevated made aware. STAT EKG was performed due to pt c/o her heart beating too fast. EKG showed SR with HR 156. made aware and expressed that there was nothing she could due for pt due to the fact that she has been refusing all medications ordered other than fluids and insulin. BG was elevated at 0200 at 302 and 3 units of lispro was ordered and given. ordered 1L bolus and ordered pt to be NPO due to vomiting. Call light is within reach and frequent monitoring has been performed.Will continue to monitor. * Plan of Care - Salud Del Angel RN - 11/28/2019 6:53 PM CDT Problem: Lack of Knowledge: Goal: Ability to describe self-care measures that may prevent or decrease complications will improve Outcome: Progressing Goal: Knowledge of disease or condition will improve Outcome: Progressing Problem: Health Behavior: Goal: Ability to manage health-related needs will improve Outcome: Progressing Problem: Skin Integrity: Goal: Risk for impaired skin integrity will decrease Outcome: Progressing Problem: Gastrointestinal Goal: Minimal or absence of nausea and vomiting Description: INTERVENTIONS: 1. Assess gastrointestinal status 2. Provide a clean room free from unpleasant odors 3. Assess medication effects 4. Provided appropriate dietary choices 5. Monitor intake and output 6. Provide fluid volume management 7. Monitor diagnostic test results 8. Discuss complementary and alternative therapies Outcome: Progressing Problem: Health Behavior: Goal: Understanding of discharge needs will improve Outcome: Not Progressing Problem: Lack of Knowledge: Goal: Knowledge of the prescribed therapeutic regimen will improve Outcome: Not Progressing Goal: Knowledge of prevention and discharge planning will improve Outcome: Not Progressing Problem: Coping: Goal: Ability to adjust to condition or change in health will improve Outcome: Not Progressing Problem: Fluid Volume: Goal: Ability to maintain a balanced intake and output will improve Outcome: Not Progressing Problem: Health Behavior: Goal: Ability to identify and alter actions that are detrimental to health will improve Outcome: Not Progressing Goal: Ability to identify and utilize available resources and services will improve Outcome: Not Progressing Problem: Nutritional: Goal: Maintenance of adequate nutrition will improve Outcome: Not Progressing Goal: Progress toward achieving an optimal weight will improve Outcome: Not Progressing Problem: Physical Regulation: Goal: Complications related to the disease process, condition or treatment will be avoided or minimized Outcome: Not Progressing Goal: Diagnostic test results will improve Outcome: Not Progressing Goals: Clinical Goals for the Shift: Diminished N/V with increased intake, Maintain hydration with IV fluids, Controlled blood sugars Summary: Pt continues to refuse any meds. IV remains patent for hydration. Decreased N/V but refuses intake. Blood sugars 200's-Lantus ordered to start tonight * Plan of Care - Annette Aguirre RN - 11/28/2019 3:06 AM CDT Goals: Clinical Goals for the Shift: Pt to remain free of injury, GI symptoms to improve, VS and labs continue to improve Summary: Pt is alert and orientated and has been very drowsy this shift. Pt stated that she has been dry heaving this shift but not producing any emesis. VS and blood glucose has been within range. Pt refused nighttime medications other than insulin stating that the other medications, were not working so she did not want them. Ice applied to the patients forehead to help headache. Call light iswithin reach and frequent monitoring has been performed. Will continue to monitor and treat pt as needed. * Plan of Care - Eliane Brandt RN - 11/27/2019 1:37 PM CDT Problem: Health Behavior: Goal: Understanding [...] change in health will improve Outcome: Progressing Problem: Fluid Volume: Goal: Ability to maintain a balanced intake and output will improve Outcome: Progressing Problem: Health Behavior: Goal: Ability to identify and alter actions that are detrimental to health will improve Outcome: Progressing Goal: Ability to identify and utilize available resources and services will improve Outcome: Progressing Goal: Ability to manage health-related needs will improve Outcome: Progressing Problem: Nutritional: Goal: Maintenance of adequate nutrition will improve Outcome: Progressing Goal: Progress toward achieving an optimal weight will improve Outcome: Progressing Problem: Physical Regulation: Goal: Complications related to the disease process, condition or treatment will be avoided or minimized Outcome: Progressing Goal: Diagnostic test results will improve Outcome: Progressing Problem: Skin Integrity: Goal: Risk for impaired skin integrity will decrease Outcome: Progressing Problem: Gastrointestinal Goal: Minimal or absence of nausea and vomiting Description: INTERVENTIONS: 1. Assess gastrointestinal status 2. Provide a clean room free from unpleasant odors 3. Assess medication effects 4. Provided appropriate dietary choices 5. Monitor intake and output 6. Provide fluid volume management 7. Monitor diagnostic test results 8. Discuss complementary and alternative therapies Outcome: Not Progressing Goals: Clinical Goals for the Shift: VS/labs stable, free from injury, decreased nausea/vomiting Summary: The patient is A & O x 4, on room air, and has been cooperative to care. The patient reports feeling nauseated and has been resting in bed with an ice pack on her head. The patient denies having a headache. BG has been WDL. I will continue to monitor and treat. * Plan of Care - Sarita Petty RN - 11/27/2019 10:30 AM CDT Attempted to complete assessment. Patient was asleep. Will try again later. * Plan of Care - Haley Collier RN - 11/27/2019 6:27 AM CDT Problem: Health Behavior: Goal: Understanding [...] change in health will improve Outcome: Progressing Problem: Health Behavior: Goal: Ability to identify and alter actions that are detrimental to health will improve Outcome: Progressing Goal: Ability to identify and utilize available resources and services will improve Outcome: Progressing Goal: Ability to manage health-related needs will improve Outcome: Progressing Problem: Nutritional: Goal: Progress toward achieving an optimal weight will improve Outcome: Progressing Problem: Physical Regulation: Goal: Complications related to the disease process, condition or treatment will be avoided or minimized Outcome: Progressing Goal: Diagnostic test results will improve Outcome: Progressing Problem: Skin Integrity: Goal: Risk for impaired skin integrity will decrease Outcome: Progressing Problem: Fluid Volume: Goal: Ability to maintain a balanced intake and output will improve Outcome: Not Progressing Problem: Nutritional: Goal: Maintenance of adequate nutrition will improve Outcome: Not Progressing Goals: Clinical Goals for the Shift: Blood sugars controlled, labs wnl, lactic acid levels wnl, nausea/vomiting controlled, able to tolerate PO intake. Summary: Pt admitted last night with nausea/vomiting, shakiness, sweats. Pt thought she was having an episode of DKA. Pt still having frequent vomiting overnight, attending MD just saw pt and added orders. Reglan and protonix given as ordered. Lab currently on floor to draw labs at this time. Pt has been minimally interactive and has been lying in position on her side most of the night. Continue with current plan of care, assist with ADLs as needed, reinforce diabetic teaching as needed. Notify MD as needed of changes. * Assessment & Plan Note - Ayana Prado MD - 11/27/2019 5:36 AM CDTAssociated Problem(s): Uncontrolled type 1 diabetes mellitus with hyperglycemia (CMS/HCC) (HCC) Sugars are in the 200s and slowly improving with insulin. Patient is on Lantus 10 units nightly however as she is actively vomiting, will reduce dose to 5 units nightly. Will monitor on a mid dose sliding scale. Patient follows with Dr. Sanches. * Assessment & Plan Note - Ayana Prado MD - 11/27/2019 5:36 AM CDTAssociated Problem(s): Lactic acidosis (Resolved 03/06/2020) Slowly trending down. Patient still actively vomiting. Continue with IV fluids. * Assessment & Plan Note - Ayana Prado MD - 11/27/2019 5:35 AM CDTAssociated Problem(s): Esophagitis (Resolved 03/06/2020) Patient diagnosed with ulcerative esophagitis in January 2019. She was supposed to follow-up with Dr. Phillips in 1 month's time after discharge but does not seem like she has. She also is not on any Protonix. Will start patient on IV Protonix. May need GI evaluation during this stay. * Assessment & Plan Note - Ayana Prado MD - 11/27/2019 5:35 AM CDTAssociated Problem(s): Bilious vomiting with nausea (Resolved 03/06/2020) Patient has a history of gastroparesis and ulcerative esophagitis. She denies any bloody or coffee-ground emesis. Will start patient on IV Reglan and Protonix. If this regimen does not help, may needGI consult. Continue to monitor. Supportive care. NPO for now. Will also check a urine drug screen. * Plan of Care - Wendy Amato RN - 11/26/2019 6:57 PM CDT Goals: Summary: New admission. Monitor and control FSBS and discomfort. Medicate for pain, n/v. * ED Procedure Note - Pato Haney MD - 11/26/2019 11:58 AM CDTAssociated Order(s): ECG 12 lead Procedure ECG 12 lead Date/Time: 11/26/2019 11:59 AM Performed by: Pato Haeny MD Authorized by: Pato Haney MD Comments: Sinus tachycardia rate of 104. Pato Haney MD 11/26/19 1200 documented in this encounter Plan of Treatment Not on file documented as of this encounter Procedures Procedure Name Priority Date/Time Associated Diagnosis Comments POCT GLUCOSE DEVICE Routine 12/01/2019 8 :34 AM CDT EGFR Routine 12/01/2019 5:05 AM CDT PHOSPHORUS Routine 12/01/2019 5:05 AM CDT MAGNESIUM Routine 12/01/2019 5:05 AM CDT BASIC METABOLIC PANEL Routine 12/01/2019 5:05 AM CDT POCT GLUCOSE DEVICE Routine 12/01/2019 5 :02 AM CDT POCT GLUCOSE DEVICE Routine 12/01/2019 2 :08 AM CDT POCT GLUCOSE DEVICE Routine 11/30/2019 1 1:24 PM CDT POCT GLUCOSE DEVICE Routine 11/30/2019 9 :57 PM CDT POCT GLUCOSE DEVICE Routine 11/30/2019 9 :27 PM CDT POCT GLUCOSE DEVICE Routine 11/30/2019 8 :50 PM CDT POCT GLUCOSE DEVICE Routine 11/30/2019 7 :43 PM CDT EGFR Timed 11/30/2019 7:39 PM CDT PHOSPHORUS Timed 11/30/2019 7:39 PM CDT MAGNESIUM Timed 11/30/2019 7:39 PM CDT BASIC METABOLIC PANEL Timed 11/30/2019 7:39 PM CDT POCT GLUCOSE DEVICE Routine 11/30/2019 6 :38 PM CDT POCT GLUCOSE DEVICE Routine 11/30/2019 5 :36 PM CDT POCT GLUCOSE DEVICE Routine 11/30/2019 4 :31 PM CDT EGFR Timed 11/30/2019 3:45 PM CDT PHOSPHORUS Timed 11/30/2019 3:45 PM CDT MAGNESIUM Timed 11/30/2019 3:45 PM CDT BASIC METABOLIC PANEL Timed 11/30/2019 3:45 PM CDT POCT GLUCOSE DEVICE Routine 11/30/2019 3 :27 PM CDT POCT GLUCOSE DEVICE Routine 11/30/2019 2 :28 PM CDT POCT GLUCOSE DEVICE Routine 11/30/2019 1 :21 PM CDT EGFR Timed 11/30/2019 12:14 PM CDT PHOSPHORUS Timed 11/30/2019 12:14 PM CDT MAGNESIUM Timed 11/30/2019 12:14 PM CDT BASIC METABOLIC PANEL Timed 11/30/2019 12:14 PM CDT POCT GLUCOSE DEVICE Routine 11/30/2019 1 1:56 AM CDT POCT GLUCOSE DEVICE Routine 11/30/2019 1 0:54 AM CDT POCT GLUCOSE DEVICE Routine 11/30/2019 1 0:01 AM CDT POCT GLUCOSE DEVICE Routine 11/30/2019 9 :52 AM CDT POCT GLUCOSE DEVICE Routine 11/30/2019 9 :34 AM CDT PHOSPHORUS Routine 11/30/2019 9:34 AM CDT MAGNESIUM Routine 11/30/2019 9:34 AM CDT POCT GLUCOSE DEVICE Routine 11/30/2019 9 :33 AM CDT POCT GLUCOSE DEVICE Routine 11/30/2019 8 :28 AM CDT EGFR Timed 11/30/2019 8:15 AM CDT DIFFERENTIAL AUTO Routine 11/30/2019 8:1 5 AM CDT CBC WITH AUTO DIFFERENTIAL Routine 11/30/2019 8:15 AM CDT BASIC METABOLIC PANEL Timed 11/30/2019 8:15 AM CDT POCT GLUCOSE DEVICE Routine 11/30/2019 7 :22 AM CDT POCT GLUCOSE DEVICE Routine 11/30/2019 6 :13 AM CDT POCT GLUCOSE DEVICE Routine 11/30/2019 5 :14 AM CDT EGFR STAT 11/30/2019 5:00 AM CDT BASIC METABOLIC PANEL STAT 11/30/2019 5:00 AM CDT POCT GLUCOSE DEVICE Routine 11/30/2019 4 :04 AM CDT POCT GLUCOSE DEVICE Routine 11/30/2019 3 :04 AM CDT POCT GLUCOSE DEVICE Routine 11/30/2019 1 :59 AM CDT POCT GLUCOSE DEVICE Routine 11/30/2019 1 :13 AM CDT EGFR Timed 11/30/2019 12:53 AM CDT BASIC METABOLIC PANEL Timed 11/30/2019 12:53 AM CDT POCT GLUCOSE DEVICE Routine 11/30/2019 1 2:04 AM CDT POCT GLUCOSE DEVICE Routine 11/29/2019 1 0:47 PM CDT EGFR Timed 11/29/2019 10:02 PM CDT BASIC METABOLIC PANEL Timed 11/29/2019 10:02 PM CDT POCT GLUCOSE DEVICE Routine 11/29/2019 9 :52 PM CDT POCT GLUCOSE DEVICE Routine 11/29/2019 8 :47 PM CDT POCT GLUCOSE DEVICE Routine 11/29/2019 7 :47 PM CDT BLOOD GAS, ARTERIAL STAT 11/29/2019 7 :31 PM CDT POCT GLUCOSE DEVICE Routine 11/29/2019 6 :45 PM CDT EGFR Timed 11/29/2019 6:08 PM CDT BASIC METABOLIC PANEL Timed 11/29/2019 6:08 PM CDT POCT GLUCOSE DEVICE Routine 11/29/2019 5 :50 PM CDT POCT GLUCOSE DEVICE Routine 11/29/2019 4 :41 PM CDT POCT GLUCOSE DEVICE Routine 11/29/2019 3 :43 PM CDT POCT GLUCOSE DEVICE Routine 11/29/2019 2 :39 PM CDT POCT GLUCOSE DEVICE Routine 11/29/2019 1 :37 PM CDT POCT GLUCOSE DEVICE Routine 11/29/2019 1 2:41 PM CDT POCT GLUCOSE DEVICE Routine 11/29/2019 1 1:38 AM CDT TRANSTHORACIC ECHO (TTE) COMPLETE W DOPPLER/CF WO CONTRAST Routine 11/29/2019 10:53 AM CDT POCT GLUCOSE DEVICE Routine 11/29/2019 1 0:34 AM CDT EGFR Timed 11/29/2019 9:46 AM CDT POTASSIUM LEVEL STAT 11/29/2019 9:46 AM CDT BASIC METABOLIC PANEL Timed 11/29/2019 9:46 AM CDT POCT GLUCOSE DEVICE Routine 11/29/2019 9 :31 AM CDT POCT GLUCOSE DEVICE Routine 11/29/2019 8 :17 AM CDT POCT GLUCOSE DEVICE Routine 11/29/2019 6 :12 AM CDT LACTATE STAT 11/29/2019 3:33 AM CDT EGFR Routine 11/29/2019 3:33 AM CDT HEMOGLOBIN A1C Routine 11/29/2019 3:33 AM CDT BASIC METABOLIC PANEL Routine 11/29/2019 3:33 AM CDT MAGNESIUM Routine 11/29/2019 3:25 AM CDT ECG 12-LEAD STAT 11/29/2019 2:51 AM CDT POCT GLUCOSE DEVICE Routine 11/29/2019 2 :11 AM CDT POCT GLUCOSE DEVICE Routine 11/28/2019 1 1:50 PM CDT POCT GLUCOSE DEVICE Routine 11/28/2019 8 :31 PM CDT POCT GLUCOSE DEVICE Routine 11/28/2019 4 :31 PM CDT POCT GLUCOSE DEVICE Routine 11/28/2019 1 1:48 AM CDT POCT GLUCOSE DEVICE Routine 11/28/2019 7 :24 AM CDT POCT GLUCOSE DEVICE Routine 11/28/2019 5 :21 AM CDT POCT GLUCOSE DEVICE Routine 11/28/2019 1 :56 AM CDT POCT GLUCOSE DEVICE Routine 11/27/2019 1 1:52 PM CDT POCT GLUCOSE DEVICE Routine 11/27/2019 8 :30 PM CDT POCT GLUCOSE DEVICE Routine 11/27/2019 4 :48 PM CDT DRUGS OF ABUSE SCREEN, URINE WITH REFLEX CONFIRMATION Routine 11/27/2019 2:06 PM CDT POCT GLUCOSE DEVICE Routine 11/27/2019 1 1:34 AM CDT POCT GLUCOSE DEVICE Routine 11/27/2019 7 :30 AM CDT POCT GLUCOSE DEVICE Routine 11/27/2019 1 :50 AM CDT SEPSIS LACTATE WITH REFLEX Timed 11/26/2019 10:15 PM CDT POCT GLUCOSE DEVICE Routine 11/26/2019 9 :05 PM CDT SEPSIS LACTATE WITH REFLEX Timed 11/26/2019 7:45 PM CDT POCT GLUCOSE DEVICE Routine 11/26/2019 3 :49 PM CDT POCT GLUCOSE DEVICE Routine 11/26/2019 1 :38 PM CDT COVID-19 CORONAVIRUS RNA STAT 11/26/2019 1:37 PM CDT URINALYSIS AND REFLEX TO MICROSCOPIC AND CULTURE STAT 11/26/2019 12:17 PM CDT ECG 12-LEAD STAT 11/26/2019 11:45 AM CDT SEPSIS LACTATE WITH REFLEX STAT 11/26/2019 11:33 AM CDT EGFR STAT 11/26/2019 11:33 AM CDT CBC WITH AUTO DIFFERENTIAL STAT 11/26/2019 11:33 AM CDT MANUAL DIFFERENTIAL STAT 11/26/2019 1 1:33 AM CDT BLOOD GAS, VENOUS STAT 11/26/2019 11: 33 AM CDT COMPREHENSIVE METABOLIC PANEL STAT 11/26/2019 11:33 AM CDT POCT GLUCOSE DEVICE Routine 11/26/2019 1 1:09 AM CDT documented in this encounter Results * (ABNORMAL) POCT glucose (12/01/2019 8:34 AM CDT) Glucose, POC 192(H) 71 - 98 mg/dL [facility] ([place]) Blood specimen (specimen) 12/01/2019 8:34 AM CDT 12/01/2019 8:34 AM CDT us Cody Malave MD LAB POCT ORDERABLE S - DEVICE Final Result TOMY SAHU ([place]) 1 [facility] Department [place] [address] * eGFR (12/01/2019 5:05 AM CDT) Pathologist [facility] eGFR 167 mL/min/1.7 3 m2 TOMY SAHU ([place]) Comment: Interpretive Data Reference Interval Normal ?>/= 90 mL/min/1.73m2 Mildly decreased* ? 60 - 89 mL/min/1.73m2 Mildly to moderately decreased ?45 - 59 mL/min/1.73m2 Moderately to severely decreased ??30 - 44 mL/min/1.73m2 Severely decreased ?15 - 29 mL/min/1.73m2 Kidney Failure ?< 15 ??mL/min/1.73m2 *Relative to young adult level If -[place] multiply value by 1.16. Estimated glomerular filtration [...] was last reviewed 2015. Blood specimen (specimen) 12/01/2019 5:05 AM CDT 12/01/2019 5:17 AM CDT us Gio Sewell MD LAB BLOOD ORDERABLES Final Re sult [facility]OM[facility] ([place]) 1 [facility] Department of Laboratories [place], [place] [id number] * (ABNORMAL) Phosphorus (12/01/2019 5:05 AM CDT) Phosphorus, pl 0.8(C) 2.3 - 4.5 mg/dL [facility]OM[facility] ([place]) Comment:Critical Result call ed to and read back by Stephanie Parra-[facility], DATE: 2019-12-01 05:43:18 BY: Irasema Gould Blood specimen (specimen) 12/01/2019 5:05 AM CDT 12/01/2019 5:17 AM CDT Gio Sewell MD LAB BLOOD ORDERABLES Final Re sult [facility]OMY [facility] ([place]) 1 [facility] [place] [address] * Magnesium (12/01/2019 5:05 AM CDT) Magnesium 2.2 1.4 - 2.5 mg/dL [facility] ([place]) Blood specimen (specimen) 12/01/2019 5:05 AM CDT 12/01/2019 5:17 AM CDT Gio Sewell MD LAB BLOOD ORDERABLES Final Re sult Performing Organization Address [facility] [[email or web address]] Co de Phone Number TOMY SAHU ([place]) 1 [facility] [place] [address] * (ABNORMAL) Basic metabolic panel (12/01/2019 5:05 AM CDT) Sodium 135 135 - 145 mmol/L [facility] ([place]) Potassium, pl 3.1(L) 3.3 - 4.9 mmol/L [facility] ([place]) Chloride 103 97 - 110 mmol/L [facility] ([place]) CO2 23 22 - 32 mmol/L [facility] ([place]) Anion gap 10 2 - 15 mmol/L [facility] ([place]) BUN 5(L) 8 - 25 mg/dL [facility] ([place]) Creatinine 0.27(L) 0.60 - 1.10 mg/dL [facility] ([place]) Comment:Icteric sample, test results may be affected. Glucose 172 70 - 199 mg/dL [facility] ([place]) Comment: Interpretive Data Fasting glucose [...] 2017. Calcium 7.4(L) 8.5 - 10.3 mg/dL [facility] ([place]) Blood specimen (specimen) 12/01/2019 5:05 AM CDT 12/01/2019 5:17 AM CDT us Gio Sewell MD LAB BLOOD ORDERABLES Final Re sult TOMY SAHU ([place]) 1 [facility] [place] [address] * (ABNORMAL) POCT glucose (12/01/2019 5:02 AM CDT) Glucose, POC 159(H) 71 - 98 mg/dL [facility] ([place]) Blood specimen (specimen) 12/01/2019 5:02 AM CDT 12/01/2019 5:02 AM CDT us Cody Malave MD LAB POCT ORDERABLE S - DEVICE Final Result Performing Organization Address [facility]/ZIP Co de Phone Number TOMY SAHU ([place]) 1 [facility] [address] * (ABNORMAL) POCT glucose (12/01/2019 2:08 AM CDT) Glucose, POC 213(H) 71 - 98 mg/dL TOMY SAHU ([place]) Blood specimen (specimen) 12/01/2019 2:08 AM CDT 12/01/2019 2:08 AM CDT us Cody Malave MD LAB POCT ORDERABLE S - DEVICE Final Result Performing Organization Address City/[facility]/ZIP Co de Phone Number TOMY SAHU ([place]) 1 [facility] [place] [address] * (ABNORMAL) POCT glucose (11/30/2019 11:24 PM CDT) Glucose, POC 207(H) 71 - 98 mg/dL TOMY [facility] ([place]) Blood specimen (specimen) 11/30/2019 11:24 PM CDT 11/30/2019 11:24 PM CDT Cody Malave MD LAB POCT ORDERABLE S - DEVICE Final Result TOMY SAHU ([place]) 1 [facility] [place] [address] * (ABNORMAL) POCT glucose (11/30/2019 9:57 PM CDT) Glucose, POC 99(H) 71 - 98 mg/dL [facility] ([place]) Blood specimen (specimen) 11/30/2019 9:57 PM CDT 11/30/2019 9:57 PM CDT us Cody Malave MD LAB POCT ORDERABLE S - DEVICE Final Result Performing Organization Address [facility]/ZIP Co de Phone Number TOMY SAHU ([place]) 1 [facility] [place] [address] * (ABNORMAL) POCT glucose (11/30/2019 9:27 PM CDT) Glucose, POC 102(H) 71 - 98 mg/dL [facility] ([place]) Blood specimen (specimen) 11/30/2019 9:27 PM CDT 11/30/2019 9:27 PM CDT Cody Malave MD LAB POCT ORDERABLE S - DEVICE Final Result TOMY SAHU ([place]) 1 [facility] [place] [address] * POCT glucose (11/30/2019 8:50 PM CDT) Glucose, POC 98 71 - 98 mg/dL TOMY [facility] ([place]) Blood specimen (specimen) 11/30/2019 8:50 PM CDT 11/30/2019 8:50 PM CDT Cody Malave MD LAB POCT ORDERABLE S - DEVICE Final Result Performing Organization Address [facility]/ZIP Co de Phone Number TOMY SAHU ([place]) 1 [facility] [place] [address] * (ABNORMAL) POCT glucose (11/30/2019 7:43 PM CDT) Pathologist [facility] Glucose, POC 120(H) 71 - 98 mg/dL TOMY [facility] ([place]) Blood specimen (specimen) 11/30/2019 7:43 PM CDT 11/30/2019 7:43 PM CDT Cody Malave MD LAB POCT ORDERABLE S - DEVICE Final Result Performing Organization Address [facility] [[email or web address]] Co de Phone Number TOMY SAHU ([place]) 1 [facility] [place] [address] * eGFR (11/30/2019 7:39 PM CDT) eGFR 149 mL/min/1.7 3 m2 TOMY [facility] ([place]) Comment: Interpretive Data Reference Interval Normal ?>/= 90 mL/min/1.73m2 Mildly decreased* ? 60 - 89 mL/min/1.73m2 Mildly to moderately decreased ?45 - 59 mL/min/1.73m2 Moderately to severely decreased ??30 - 44 mL/min/1.73m2 Severely decreased ?15 - 29 mL/min/1.73m2 Kidney Failure ?< 15 ??mL/min/1.73m2 *Relative to young adult level If -[place] multiply value by 1.16. Estimated glomerular filtration [...] was last reviewed 2015. Blood specimen (specimen) 11/30/2019 7:39 PM CDT 11/30/2019 7:51 PM CDT us Ayana Prado MD LAB BLOOD ORDERABLES Final Resul t Performing Organization Address [facility] [[email or web address]] Co de Phone Number TOMY SAHU ([place]) 1 [facility] [place] [address] * (ABNORMAL) Phosphorus (11/30/2019 7:39 PM CDT) Phosphorus, pl 1.2(L) 2.3 - 4.5 mg/dL TOMY SAHU ([place]) Blood specimen (specimen) 11/30/2019 7:39 PM CDT 11/30/2019 8:05 PM CDT us Cody Malave MD LAB BLOOD ORDERABL ES Final Result Performing Organization Address [facility] de Phone Number TOMY SAHU ([place]) 1 [facility] [place] [address] * Magnesium (11/30/2019 7:39 PM CDT) Magnesium 2.2 1.4 - 2.5 mg/dL TOMY SAHU ([place]) Blood specimen (specimen) 11/30/2019 7:39 PM CDT 11/30/2019 8:05 PM CDT Cody Malave MD LAB BLOOD ORDERABL ES Final Result Performing Organization Address [facility] [[email or web address]] Co de Phone Number TOMY LUQUE) 1 [facility] [place] [address] * (ABNORMAL) Basic metabolic panel (11/30/2019 7:39 PM CDT) Sodium 135 135 - 145 mmol/L [facility] ([place]) Potassium, pl 3.1(L) 3.3 - 4.9 mmol/L [facility] ([place]) Chloride 103 97 - 110 mmol/L [facility] ([place]) CO2 21(L) 22 - 32 mmol/L [facility] ([place]) Anion gap 11 2 - 15 mmol/L [facility] ([place]) BUN 7(L) 8 - 25 mg/dL [facility] ([place]) Creatinine 0.38(L) 0.60 - 1.10 mg/dL [facility] ([place]) Glucose 129 70 - 199 mg/dL [facility] ([place]) Comment: Interpretive Data Fasting glucose [...] 2017. Calcium 7.5(L) 8.5 - 10.3 mg/dL [facility] ([place]) Blood specimen (specimen) 11/30/2019 7:39 PM CDT 11/30/2019 7:51 PM CDT us Ayana Prado MD LAB BLOOD ORDERABLES Final Resul t TOMY SAHU ([place]) 1 [facility] [place] [address] * (ABNORMAL) POCT glucose (11/30/2019 6:38 PM CDT) Glucose, POC 140(H) 71 - 98 mg/dL [facility] LUIS ALBERTO ([place]) Blood specimen (specimen) 11/30/2019 6:38 PM CDT 11/30/2019 6:38 PM CDT Cody Malave MD LAB POCT ORDERABLE S - DEVICE Final Result Performing Organization Address [facility]/ZIP Co de Phone Number TOMY SAHU ([place]) 1 [facility] [place] [address] * (ABNORMAL) POCT glucose (11/30/2019 5:36 PM CDT) Glucose, POC 133(H) 71 - 98 mg/dL TOMY SAHU ([place]) Blood specimen (specimen) 11/30/2019 5:36 PM CDT 11/30/2019 5:36 PM CDT Cody Malave MD LAB POCT ORDERABLE S - DEVICE Final Result Performing Organization Address [facility] [[email or web address]] Co de Phone Number TOMY SAHU ([place]) 1 [facility] [place] [address] * (ABNORMAL) POCT glucose (11/30/2019 4:31 PM CDT) Glucose, POC 100(H) 71 - 98 mg/dL TOMY SAHU ([place]) Blood specimen (specimen) 11/30/2019 4:31 PM CDT 11/30/2019 4:31 PM CDT Cody Malave MD LAB POCT ORDERABLE S - DEVICE Final Result Performing Organization Address [facility] [[email or web address]] Co de Phone Number TOMY SAHU ([place]) 1 [facility] [place] [address] * eGFR (11/30/2019 3:45 PM CDT) eGFR 153 mL/min/1.7 3 m2 TOMY SAHU ([place]) Comment: Interpretive Data Reference Interval Normal ?>/= 90 mL/min/1.73m2 Mildly decreased* ? 60 - 89 mL/min/1.73m2 Mildly to moderately decreased ?45 - 59 mL/min/1.73m2 Moderately to severely decreased ??30 - 44 mL/min/1.73m2 Severely decreased ?15 - 29 mL/min/1.73m2 Kidney Failure ?< 15 ??mL/min/1.73m2 *Relative to young adult level If -[place] multiply value by 1.16. Estimated glomerular filtration [...] was last reviewed 2015. Blood specimen (specimen) 11/30/2019 3:45 PM CDT 11/30/2019 3:55 PM CDT us Ayana Prado MD LAB BLOOD ORDERABLES Final Resul t TOMY SAHU ([place]) 1 [facility] Department of Laboratories [place], [place] [id number] * (ABNORMAL) Phosphorus (11/30/2019 3:45 PM CDT) Phosphorus, pl 0.8(C) 2.3 - 4.5 mg/dL TOMY SAHU ([place]) Comment:Critical Result call ed to and read back by Evert Martinez (ICU), DATE: 2019-11-30 16:13:13 BY: Maira Koehler Blood specimen (specimen) 11/30/2019 3:45 PM CDT 11/30/2019 3:55 PM CDT Cody Malave MD LAB BLOOD ORDERABL ES Final Result Performing Organization Address [facility]/ZIP Co de Phone Number TOMY SAHU ([place]) 1 [facility] [place] [address] * (ABNORMAL) Magnesium (11/30/2019 3:45 PM CDT) Magnesium 2.6(H) 1.4 - 2.5 mg/dL [facility] ([place]) Blood specimen (specimen) 11/30/2019 3:45 PM CDT 11/30/2019 3:55 PM CDT Cody Malave MD LAB BLOOD ORDERABL ES Final Result Performing Organization Address [facility] de Phone Number TOMY SAHU ([place]) 1 [facility] [place] [address] * (ABNORMAL) Basic metabolic panel (11/30/2019 3:45 PM CDT) Sodium 135 135 - 145 mmol/L [facility] ([place]) Potassium, pl 3.2(L) 3.3 - 4.9 mmol/L [facility] ([place]) Chloride 104 97 - 110 mmol/L [facility] ([place]) CO2 18(L) 22 - 32 mmol/L [facility] ([place]) Anion gap 13 2 - 15 mmol/L [facility] ([place]) BUN 7(L) 8 - 25 mg/dL [facility] ([place]) Creatinine 0.35(L) 0.60 - 1.10 mg/dL [facility] ([place]) Glucose 65(L) 70 - 199 mg/dL [facility] ([place]) [...] 2017. Calcium 7.9(L) 8.5 - 10.3 mg/dL TOMY SAHU ([place]) Blood specimen (specimen) 11/30/2019 3:45 PM CDT 11/30/2019 3:55 PM CDT us Ayana Prado MD LAB BLOOD ORDERABLES Final Resul t Performing Organization Address [facility]/ZIP Co de Phone Number TOMY SAHU ([place]) 1 [facility] [place] [address] * POCT glucose (11/30/2019 3:27 PM CDT) Glucose, POC 83 71 - 98 mg/dL TOMY SAHU ([place]) Blood specimen (specimen) 11/30/2019 3:27 PM CDT 11/30/2019 3:27 PM CDT us Cody Malave MD LAB POCT ORDERABLE S - DEVICE Final Result Performing Organization Address [facility] [[email or web address]] Co de Phone Number TOMY SAHU ([place]) 1 [facility] [place] [address] * (ABNORMAL) POCT glucose (11/30/2019 2:28 PM CDT) Glucose, POC 125(H) 71 - 98 mg/dL TOMY SAHU ([place]) Blood specimen (specimen) 11/30/2019 2:28 PM CDT 11/30/2019 2:28 PM CDT us Cody Malave MD LAB POCT ORDERABLE S - DEVICE Final Result Performing Organization Address [facility] [[email or web address]] Co de Phone Number TOMY SAHU ([place]) 1 [facility] [place] [address] * (ABNORMAL) POCT glucose (11/30/2019 1:21 PM CDT) Glucose, POC 253(H) 71 - 98 mg/dL TOMY [facility] ([place]) Blood specimen (specimen) 11/30/2019 1:21 PM CDT 11/30/2019 1:21 PM CDT Cody Malave MD LAB POCT ORDERABLE S - DEVICE Final Result TOMY [facility] ([place]) 1 [facility] [place] [address] * eGFR (11/30/2019 12:14 PM CDT) Pathologist [facility] eGFR 155 mL/min/1.7 3 m2 TOMY [facility] ([place]) Comment: Interpretive Data Reference Interval Normal ?>/= 90 mL/min/1.73m2 Mildly decreased* ? 60 - 89 mL/min/1.73m2 Mildly to moderately decreased ?45 - 59 mL/min/1.73m2 Moderately to severely decreased ??30 - 44 mL/min/1.73m2 Severely decreased ?15 - 29 mL/min/1.73m2 Kidney Failure ?< 15 ??mL/min/1.73m2 *Relative to young adult level If -[place] multiply value by 1.16. Estimated glomerular filtration [...] was last reviewed 2015. Blood specimen (specimen) 11/30/2019 12:14 PM CDT 11/30/2019 12:18 PM CDT us Ayana Prado MD LAB BLOOD ORDERABLES Final Resul t TOMY SAHU ([place]) 1 [facility] [place] [address] * (ABNORMAL) Phosphorus (11/30/2019 12:14 PM CDT) Pathologist [facility] Phosphorus, pl 0.5(C) 2.3 - 4.5 mg/dL TOMY [facility] ([place]) Comment:Critical Result call ed to and read back by Kailyn Fritz/ICU, DATE: 2019-11-30 12:53:09 BY: karen mcgrath Blood specimen (specimen) 11/30/2019 12:14 PM CDT 11/30/2019 12:18 PM CDT us Cody Malave MD LAB BLOOD ORDERABL ES Final Result Performing Organization Address [facility]/ZIP Co de Phone Number TOMY SAHU ([place]) 1 [facility] [place] [address] * Magnesium (11/30/2019 12:14 PM CDT) [facility] Magnesium 1.6 1.4 - 2.5 mg/dL [facility] ([place]) Blood specimen (specimen) 11/30/2019 12:14 PM CDT 11/30/2019 12:18 PM CDT Cody Malave MD LAB BLOOD ORDERABL ES Final Result Performing Organization Address [facility]/ZIP Co de Phone Number TOMY SAHU ([place]) 1 [facility] [place] [address] * (ABNORMAL) Basic metabolic panel (11/30/2019 12:14 PM CDT) [facility] Sodium 130(L) 135 - 145 mmol/L [facility] ([place]) Potassium, pl 3.3 3.3 - 4.9 mmol/L [facility] ([place]) Chloride 99 97 - 110 mmol/L [facility] ([place]) CO2 12(L) 22 - 32 mmol/L [facility] ([place]) Anion gap 19(H) 2 - 15 mmol/L [facility] ([place]) BUN 8 8 - 25 mg/dL [facility] ([place]) Creatinine 0.34(L) 0.60 - 1.10 mg/dL [facility] ([place]) Glucose 304(H) 70 - 199 mg/dL [facility] ([place]) [...] 2017. Calcium 7.7(L) 8.5 - 10.3 mg/dL [facility] ([place]) Blood specimen (specimen) 11/30/2019 12:14 PM CDT 11/30/2019 12:18 PM CDT us Ayana Prado MD LAB BLOOD ORDERABLES Final Resul t Performing Organization Address [facility]/ZIP Co de Phone Number TOMY SAHU ([place]) 1 [facility] [address] * (ABNORMAL) POCT glucose (11/30/2019 11:56 AM CDT) Glucose, POC 288(H) 71 - 98 mg/dL [facility] ([place]) Blood specimen (specimen) 11/30/2019 11:56 AM CDT 11/30/2019 11:56 AM CDT us Cody Malave MD LAB POCT ORDERABLE S - DEVICE Final Result TOMY SAHU ([place]) [address] [place] [address] * (ABNORMAL) POCT glucose (11/30/2019 10:54 AM CDT) Glucose, POC 234(H) 71 - 98 mg/dL TOMY SAHU ([place]) Blood specimen (specimen) 11/30/2019 10:54 AM CDT 11/30/2019 10:54 AM CDT us Cody Malave MD LAB POCT ORDERABLE S - DEVICE Final Result TOMY SAHU ([place]) 1 [place] [address] * (ABNORMAL) POCT glucose (11/30/2019 10:01 AM CDT) Glucose, POC 159(H) 71 - 98 mg/dL TOMY SAHU ([place]) Blood specimen (specimen) 11/30/2019 10:01 AM CDT 11/30/2019 10:01 AM CDT us Cody Malave MD LAB POCT ORDERABLE S - DEVICE Final Result TOMY SAHU ([place]) 1 [facility] [place] [address] * (ABNORMAL) POCT glucose (11/30/2019 9:52 AM CDT) Glucose, POC 159(H) 71 - 98 mg/dL TOMY SAHU ([place]) Blood specimen (specimen) 11/30/2019 9:52 AM CDT 11/30/2019 9:52 AM CDT us Cody Malave MD LAB POCT ORDERABLE S - DEVICE Final Result TOMY SAHU ([place]) 1 [facility] [place] [address] * (ABNORMAL) POCT glucose (11/30/2019 9:34 AM CDT) Glucose, POC 51(C) 71 - 98 mg/dL TOMY SAHU ([place]) Comment:Glu2: Blood specimen (specimen) 11/30/2019 9:34 AM CDT 11/30/2019 9:34 AM CDT Cody Malave MD LAB POCT ORDERABLE S - DEVICE Final Result TOMY SAHU ([place]) 1 [facility] [place] [address] * (ABNORMAL) Phosphorus (11/30/2019 9:34 AM CDT) Pathologist [facility] Phosphorus, pl <0.4(C) 2.3 - 4.5 mg/dL TOMY SAHU ([place]) Comment:Critical Result call ed to and read back by Kailyn Fritz/icu, DATE: 2019-11-30 10:22:49 BY: karen mcgrath Blood specimen (specimen) 11/30/2019 9:34 AM CDT 11/30/2019 9:59 AM CDT Cody Malave MD LAB BLOOD ORDERABL ES Final Result Performing Organization Address [facility] [[email or web address]] Co de Phone Number TOMY SAHU ([place]) 1 [facility] [place] [address] * Magnesium (11/30/2019 9:34 AM CDT) Pathologist [facility] Magnesium 1.7 1.4 - 2.5 mg/dL TOMY SAHU ([place]) Blood specimen (specimen) 11/30/2019 9:34 AM CDT 11/30/2019 9:59 AM CDT Cody Malave MD LAB BLOOD ORDERABL ES Final Result Performing Organization Address [facility]/ZIP Co de Phone Number TOMY [facility] ([place]) 1 [facility] [place] [address] * (ABNORMAL) POCT glucose (11/30/2019 9:33 AM CDT) [facility] Glucose, POC 61(L) 71 - 98 mg/dL [facility] ([place]) Blood specimen (specimen) 11/30/2019 9:33 AM CDT 11/30/2019 9:33 AM CDT us Cody Malave MD LAB POCT ORDERABLE S - DEVICE Final Result TOMY [facility] ([place]) 1 [facility] [place] [address] * (ABNORMAL) POCT glucose (11/30/2019 8:28 AM CDT) [facility] Glucose, POC 141(H) 71 - 98 mg/dL [facility] ([place]) Blood specimen (specimen) 11/30/2019 8:28 AM CDT 11/30/2019 8:28 AM CDT us Cody Malave MD LAB POCT ORDERABLE S - DEVICE Final Result TOMY [facility] ([place]) 1 [place] [address] * eGFR (11/30/2019 8:15 AM CDT) [facility] eGFR 155 mL/min/1.7 3 m2 [facility] ([place]) Comment: Interpretive Data Reference Interval Normal ?>/= 90 mL/min/1.73m2 Mildly decreased* ? 60 - 89 mL/min/1.73m2 Mildly to moderately decreased ?45 - 59 mL/min/1.73m2 Moderately to severely decreased ??30 - 44 mL/min/1.73m2 Severely decreased ?15 - 29 mL/min/1.73m2 Kidney Failure ?< 15 ??mL/min/1.73m2 *Relative to young adult level If -[place] multiply value by 1.16. Estimated glomerular filtration [...] was last reviewed 2015. Blood specimen (specimen) 11/30/2019 8:15 AM CDT 11/30/2019 8:19 AM CDT us Ayana Prado MD LAB BLOOD ORDERABLES Final Resul t TOMY [facility] ([place]) 1 [facility] [place] [address] * (ABNORMAL) Differential, auto (11/30/2019 8:15 AM CDT) Neutrophil abs 5.9 1.7 - 6.5 K/cumm [facility] ([place]) Imm gran abs 0.1 0.0 - 0.1 K/cumm [facility] ([place]) Lymphocyte abs 1.8 0.8 - 3.3 K/cumm [facility] ([place]) Monocyte abs 1.2(H) 0.2 - 0.8 K/cumm [facility] ([place]) Eosinophil abs 0.0 0.0 - 0.5 K/cumm [facility] ([place]) Basophil abs 0.0 0.0 - 0.1 K/cumm [facility] ([place]) Neutrophil pct 65.6 % [facility] ([place]) Comment: Interpretive [...] was last revised on 2017. Lymphocyte pct 20.1 % [facility] ([place]) Comment: Interpretive [...] last revised on 2017. Blood specimen (specimen) 11/30/2019 8:15 AM CDT 11/30/2019 8:19 AM CDT us Roberto Carlos Ding MD LAB BLOOD ORDERABLES Final Resul t TOMY [facility] ([place]) 1 [facility] [place] [address] * (ABNORMAL) Basic metabolic panel (11/30/2019 8:15 AM CDT) Sodium 133(L) 135 - 145 mmol/L [facility] ([place]) Potassium, pl 3.1(L) 3.3 - 4.9 mmol/L [facility] ([place]) Chloride 103 97 - 110 mmol/L [facility] ([place]) CO2 16(L) 22 - 32 mmol/L [facility] ([place]) Anion gap 14 2 - 15 mmol/L [facility] ([place]) BUN 10 8 - 25 mg/dL [facility] ([place]) Creatinine 0.34(L) 0.60 - 1.10 mg/dL [facility] ([place]) Glucose 147 70 - 199 mg/dL [facility] ([place]) [...] mg/dL [facility] ([place]) Blood specimen (specimen) 11/30/2019 8:15 AM CDT 11/30/2019 8:19 AM CDT us Ayana Prado MD LAB BLOOD ORDERABLES Final Resul t TOMY [facility] ([place]) 1 [facility] [place] [address] * (ABNORMAL) CBC with auto differential (11/30/2019 8:15 AM CDT) WBC 9.0 3.8 - 9.9 K/cumm [facility] ([place]) Hgb 13.4 11.9 - 15.5 g/dL [facility] ([place]) Hct 36.7 35.6 - 45.5 % [facility] ([place]) Plt 287 150 - 400 K/cumm [facility] ([place]) MPV 8.5(L) 9.1 - 12.3 fL [facility] ([place]) RBC 4.47 3.90 - 5.20 M/cumm [facility] ([place]) MCV 82.1 81.3 - 96.4 fL [facility] ([place]) MCH 30.0 27.1 - 33.3 pg [facility] ([place]) MCHC 36.5(H) 32.3 - 35.7 g/dL TOMY SA[facility] ([place]) RDW CV 13.0 11.1 - 14.9 % TOMY SA[facility] ([place]) RDW SD 38.9 35.7 - 48.1 fL TOMY SA[facility] ([place]) NRBC abs 0.00 0.00 - 0.01 K/cumm TOMY SA[facility] ([place]) Blood specimen (specimen) 11/30/2019 8:15 AM CDT 11/30/2019 8:19 AM CDT us Roberto Carlos Ding MD LAB BLOOD ORDERABLES Final Resul t Performing Organization Address [facility]/ZIP Co de Phone Number TOMY SAHU ([place]) 1 [facility] [address] * (ABNORMAL) POCT glucose (11/30/2019 7:22 AM CDT) Glucose, POC 132(H) 71 - 98 mg/dL [facility] ([place]) Blood specimen (specimen) 11/30/2019 7:22 AM CDT 11/30/2019 7:22 AM CDT us Cody Malave MD LAB POCT ORDERABLE S - DEVICE Final Result Performing Organization Address [facility] [[email or web address]] Co de Phone Number TOMY SAHU ([place]) 1 [facility] [place] [address] * (ABNORMAL) POCT glucose (11/30/2019 6:13 AM CDT) Glucose, POC 128(H) 71 - 98 mg/dL TOMY SAHU ([place]) Blood specimen (specimen) 11/30/2019 6:13 AM CDT 11/30/2019 6:13 AM CDT us Roberto Carlos Ding MD LAB POCT ORDERABLES - DEVICE Fin al Result Performing Organization Address City[facility]/ZIP Co de Phone Number TOMY SAHU ([place]) [address] Department [place] [address] * (ABNORMAL) POCT glucose (11/30/2019 5:14 AM CDT) Pathologist [facility] Glucose, POC 105(H) 71 - 98 mg/dL TOMY [facility] ([place]) Blood specimen (specimen) 11/30/2019 5:14 AM CDT 11/30/2019 5:14 AM CDT us Roberto Carlos Ding MD LAB POCT ORDERABLES - DEVICE Fin al Result TOMY [facility] ([place]) [address] [place] [address] * eGFR (11/30/2019 5:00 AM CDT) [facility] eGFR 151 mL/min/1.7 3 m2 TOMY [facility] ([place]) Comment: Interpretive Data Reference Interval Normal ?>/= 90 mL/min/1.73m2 Mildly decreased* ? 60 - 89 mL/min/1.73m2 Mildly to moderately decreased ?45 - 59 mL/min/1.73m2 Moderately to severely decreased ??30 - 44 mL/min/1.73m2 Severely decreased ?15 - 29 mL/min/1.73m2 Kidney Failure ?< 15 ??mL/min/1.73m2 *Relative to young adult level If -[place] multiply value by 1.16. Estimated glomerular filtration [...] was last reviewed 2015. Blood specimen (specimen) 11/30/2019 5:00 AM CDT 11/30/2019 5:02 AM CDT us Roberto Carlos Ding MD LAB BLOOD ORDERABLES Final Resul t TOMY [facility] ([place]) 1 [facility] [place] [address] * (ABNORMAL) Basic metabolic panel (11/30/2019 5:00 AM CDT) Sodium 130(L) 135 - 145 mmol/L [facility] ([place]) Potassium, pl 2.8(C) 3.3 - 4.9 mmol/L [facility] ([place]) Comment:Critical Result call ed to and read back by [facility], DATE: 2019-11-30 05:26:40 BY: Irasema Gould Chloride 100 97 - 110 mmol/L [facility] ([place]) CO2 15(L) 22 - 32 mmol/L [facility] ([place]) Anion gap 14 2 - 15 mmol/L [facility] ([place]) BUN 12 8 - 25 mg/dL [facility] ([place]) Creatinine 0.37(L) 0.60 - 1.10 mg/dL [facility] ([place]) Glucose 118 70 - 199 mg/dL [facility] ([place]) [...] interpretive data was last revised 2017. Calcium 8.4(L) 8.5 - 10.3 mg/dL [facility] ([place]) Blood specimen (specimen) 11/30/2019 5:00 AM CDT 11/30/2019 5:02 AM CDT Roberto Carlos Ding MD LAB BLOOD ORDERABLES Final Resul t Performing Organization Address [facility] [[email or web address]] Co de Phone Number TOMY SAHU ([place]) [address] [facility] [place] [address] * (ABNORMAL) POCT glucose (11/30/2019 4:04 AM CDT) Glucose, POC 112(H) 71 - 98 mg/dL [facility] ([place]) Blood specimen (specimen) 11/30/2019 4:04 AM CDT 11/30/2019 4:04 AM CDT Roberto Carlos Ding MD LAB POCT ORDERABLES - DEVICE Fin al Result Performing Organization Address [facility] de Phone Number TOMY SAHU ([place]) [address] [facility] [place] [address] * (ABNORMAL) POCT glucose (11/30/2019 3:04 AM CDT) Glucose, POC 148(H) 71 - 98 mg/dL [facility] ([place]) Blood specimen (specimen) 11/30/2019 3:04 AM CDT 11/30/2019 3:04 AM CDT Roberto Carlos Ding MD LAB POCT ORDERABLES - DEVICE Fin al Result Performing Organization Address [facility] [[email or web address]] Co de Phone Number TOMY SAHU ([place]) [address] [facility] [place] [address] * (ABNORMAL) POCT glucose (11/30/2019 1:59 AM CDT) Glucose, POC 130(H) 71 - 98 mg/dL [facility] ([place]) Blood specimen (specimen) 11/30/2019 1:59 AM CDT 11/30/2019 1:59 AM CDT Roberto Carlos Ding MD LAB POCT ORDERABLES - DEVICE Fin al Result Performing Organization Address [facility]/ZIP Co de Phone Number TOMY SAHU ([place]) 1 [facility] [place] [address] * (ABNORMAL) POCT glucose (11/30/2019 1:13 AM CDT) Glucose, POC 131(H) 71 - 98 mg/dL TOMY [facility] ([place]) Blood specimen (specimen) 11/30/2019 1:13 AM CDT 11/30/2019 1:13 AM CDT Roberto Carlos Ding MD LAB POCT ORDERABLES - DEVICE Fin al Result Performing Organization Address [facility] [[email or web address]] Co de Phone Number TOMY SAHU ([place]) 1 [facility] [place] [address] * eGFR (11/30/2019 12:53 AM CDT) eGFR 152 mL/min/1.7 3 m2 TOMY [facility] ([place]) Comment: Interpretive Data Reference Interval Normal ?>/= 90 mL/min/1.73m2 Mildly decreased* ? 60 - 89 mL/min/1.73m2 Mildly to moderately decreased ?45 - 59 mL/min/1.73m2 Moderately to severely decreased ??30 - 44 mL/min/1.73m2 Severely decreased ?15 - 29 mL/min/1.73m2 Kidney Failure ?< 15 ??mL/min/1.73m2 *Relative to young adult level If -[place] multiply value by 1.16. Estimated glomerular filtration [...] was last reviewed 2015. Blood specimen (specimen) 11/30/2019 12:53 AM CDT 11/30/2019 12:57 AM CDT us Ayana Prado MD LAB BLOOD ORDERABLES Final Resul t TOMY [facility] ([place]) 1 [facility] [place] [address] * (ABNORMAL) Basic metabolic panel (11/30/2019 12:53 AM CDT) Sodium 128(L) 135 - 145 mmol/L [facility] ([place]) [...] 2017. Calcium 8.1(L) 8.5 - 10.3 mg/dL [facility] ([place]) Blood specimen (specimen) 11/30/2019 12:53 AM CDT 11/30/2019 12:57 AM CDT us Ayana Prado MD LAB BLOOD ORDERABLES Final Resul t Performing Organization Address [facility] de Phone Number TOMY SAHU ([place]) 1 [facility] [place] [address] * (ABNORMAL) POCT glucose (11/30/2019 12:04 AM CDT) Glucose, POC 105(H) 71 - 98 mg/dL [facility] ([place]) Blood specimen (specimen) 11/30/2019 12:04 AM CDT 11/30/2019 12:04 AM CDT us Roberto Carlos Ding MD LAB POCT ORDERABLES - DEVICE Fin al Result Performing Organization Address [facility] de Phone Number [facility] ([place]) 1 [facility] [place] [address] * (ABNORMAL) POCT glucose (11/29/2019 10:47 PM CDT) Glucose, POC 122(H) 71 - 98 mg/dL [facility] ([place]) Blood specimen (specimen) 11/29/2019 10:47 PM CDT 11/29/2019 10:47 PM CDT us Roberto Carlos Ding MD LAB POCT ORDERABLES - DEVICE Fin al Result Performing Organization Address [facility] de Phone Number TOMY [facility] ([place]) 1 [facility] [place] [address] * eGFR (11/29/2019 10:02 PM CDT) eGFR 140 mL/min/1.7 3 m2 [facility] ([place]) Comment: Interpretive Data Reference Interval Normal ?>/= 90 mL/min/1.73m2 Mildly decreased* ? 60 - 89 mL/min/1.73m2 Mildly to moderately decreased ?45 - 59 mL/min/1.73m2 Moderately to severely decreased ??30 - 44 mL/min/1.73m2 Severely decreased ?15 - 29 mL/min/1.73m2 Kidney Failure ?< 15 ??mL/min/1.73m2 *Relative to young adult level If -[place] multiply value by 1.16. Estimated glomerular filtration [...] was last reviewed 2015. Blood specimen (specimen) 11/29/2019 10:02 PM CDT 11/29/2019 10:10 PM CDT us Ayana Prado MD LAB BLOOD ORDERABLES Final Resul t [facility] ([place]) 1 [facility] [place] [address] * (ABNORMAL) Basic metabolic panel (11/29/2019 10:02 PM CDT) Sodium 132(L) 135 - 145 [...] mg/dL [facility] ([place]) Blood specimen (specimen) 11/29/2019 10:02 PM CDT 11/29/2019 10:10 PM CDT us Ayana Prado MD LAB BLOOD ORDERABLES Final Resul t Performing Organization Address [facility]/ZIP Co de Phone Number TOMY SAHU ([place]) 1 [facility] [address] * (ABNORMAL) POCT glucose (11/29/2019 9:52 PM CDT) Glucose, POC 110(H) 71 - 98 mg/dL [facility] ([place]) Blood specimen (specimen) 11/29/2019 9:52 PM CDT 11/29/2019 9:52 PM CDT us Roberto Carlos Ding MD LAB POCT ORDERABLES - DEVICE Fin al Result TOMY SAHU ([place]) 1 [facility] [address] * (ABNORMAL) POCT glucose (11/29/2019 8:47 PM CDT) Glucose, POC 135(H) 71 - 98 mg/dL [facility] ([place]) Blood specimen (specimen) 11/29/2019 8:47 PM CDT 11/29/2019 8:47 PM CDT Roberto Carlos Ding MD LAB POCT ORDERABLES - DEVICE Fin al Result TOMY SAHU ([place]) 1 [facility] [place] [address] * (ABNORMAL) POCT glucose (11/29/2019 7:47 PM CDT) Glucose, POC 148(H) 71 - 98 mg/dL TOMY SAHU ([place]) Blood specimen (specimen) 11/29/2019 7:47 PM CDT 11/29/2019 7:47 PM CDT Result [facility] Roberto Carlos Ding MD LAB POCT ORDERABLES - DEVICE Fin al Result Performing Organization Address [facility] de Phone Number TOMY SAHU ([place]) 1 [facility] [place] [address] * (ABNORMAL) Blood gas, arterial (11/29/2019 7:31 PM CDT) pH, Art 7.32(L) 7.35 - 7.45 [facility] ([place]) PCO2, Arterial 20(C) 35 - 45 mmHg [facility] ([place]) Comment:Critical result call ed to and read back by Giovanni Parra (ICU) on 11/29/2019 19:38:58 CDT to Porter Arango. PO2, Arterial 129(H) 83 - 108 mmHg [facility] ([place]) HCO3 Art (Calculated) 10(L) 20 - 30 mmol/L [facility] ([place]) BE, art -14 mmol/L [facility] ([place]) Comment: Interpretive Data No Reference Range Established Current Interpretive Data was last revised on 2017 O2 Sat Art (Measured) 100(H) 90 - 95 % [facility] ([place]) Blood specimen (specimen) 11/29/2019 7:31 PM CDT 11/29/2019 7:34 PM CDT Roberto Carlos Ding MD LAB BLOOD ORDERABLES Final Resul t Performing Organization Address [facility]/ZIP Co de Phone Number TOMY SAHU ([place]) 1 [facility] [place] [address] * (ABNORMAL) POCT glucose (11/29/2019 6:45 PM CDT) Glucose, POC 123(H) 71 - 98 mg/dL [facility] ([place]) Blood specimen (specimen) 11/29/2019 6:45 PM CDT 11/29/2019 6:45 PM CDT us Roberto Carlos Ding MD LAB POCT ORDERABLES - DEVICE Fin al Result Performing Organization Address [facility]/ZIP Co de Phone Number TOMY SAHU ([place]) 1 [facility] [place] [address] * eGFR (11/29/2019 6:08 PM CDT) Pathologist [facility] eGFR 142 mL/min/1.7 3 m2 TOMY [facility] ([place]) Comment: Interpretive Data Reference Interval Normal ?>/= 90 mL/min/1.73m2 Mildly decreased* ? 60 - 89 mL/min/1.73m2 Mildly to moderately decreased ?45 - 59 mL/min/1.73m2 Moderately to severely decreased ??30 - 44 mL/min/1.73m2 Severely decreased ?15 - 29 mL/min/1.73m2 Kidney Failure ?< 15 ??mL/min/1.73m2 *Relative to young adult level If -[place] multiply value by 1.16. Estimated glomerular filtration [...] was last reviewed 2015. Blood specimen (specimen) 11/29/2019 6:08 PM CDT 11/29/2019 6:11 PM CDT us Ayana Prado MD LAB BLOOD ORDERABLES Final Resul t [facility] ([place]) 1 [facility] Department [place] [address] * (ABNORMAL) Basic metabolic panel (11/29/2019 6:08 PM CDT) Sodium 128(L) 135 - 145 mmol/L [facility] ([place]) Potassium, pl 4.0 3.3 - 4.9 mmol/L [facility] ([place]) Chloride 103 97 - 110 mmol/L [facility] ([place]) CO2 7(L) 22 - 32 mmol/L [facility] ([place]) [...] mg/dL [facility] ([place]) Blood specimen (specimen) 11/29/2019 6:08 PM CDT 11/29/2019 6:11 PM CDT Ayana Prado MD LAB BLOOD ORDERABLES Final Resul t Performing Organization Address [facility] [[email or web address]] Co de Phone Number TOMY SAHU ([place]) 1 [facility] [place] [address] * (ABNORMAL) POCT glucose (11/29/2019 5:50 PM CDT) Glucose, POC 111(H) 71 - 98 mg/dL [facility] ([place]) Blood specimen (specimen) 11/29/2019 5:50 PM CDT 11/29/2019 5:50 PM CDT Roberto Carlos Ding MD LAB POCT ORDERABLES - DEVICE Fin al Result Performing Organization Address [facility] [[email or web address]] Co de Phone Number TOMY SAHU ([place]) 1 [facility] [place] [address] * (ABNORMAL) POCT glucose (11/29/2019 4:41 PM CDT) Glucose, POC 114(H) 71 - 98 mg/dL [facility] ([place]) Blood specimen (specimen) 11/29/2019 4:41 PM CDT 11/29/2019 4:41 PM CDT Roberto Carlos Ding MD LAB POCT ORDERABLES - DEVICE Fin al Result Performing Organization Address [facility] [[email or web address]] Co de Phone Number TOMY SAHU ([place]) 1 [facility] [place] [address] * POCT glucose (11/29/2019 3:43 PM CDT) Glucose, POC 98 71 - 98 mg/dL [facility] ([place]) Blood specimen (specimen) 11/29/2019 3:43 PM CDT 11/29/2019 3:43 PM CDT Roberto Carlos Ding MD LAB POCT ORDERABLES - DEVICE Fin al Result Performing Organization Address City[facility] [[email or web address]] Co de Phone Number TOMY SAHU ([place]) 1 [facility] [place] [address] * (ABNORMAL) POCT glucose (11/29/2019 2:39 PM CDT) Glucose, POC 117(H) 71 - 98 mg/dL TOMY SAHU ([place]) Blood specimen (specimen) 11/29/2019 2:39 PM CDT 11/29/2019 2:39 PM CDT Roberto Carlos Ding MD LAB POCT ORDERABLES - DEVICE Fin al Result Performing Organization Address [facility] [[email or web address]] Co de Phone Number TOMY SAHU ([place]) 1 [facility] [place] [address] * (ABNORMAL) POCT glucose (11/29/2019 1:37 PM CDT) Glucose, POC 138(H) 71 - 98 mg/dL TOMY SAHU ([place]) Blood specimen (specimen) 11/29/2019 1:37 PM CDT 11/29/2019 1:37 PM CDT Roberto Carlos Ding MD LAB POCT ORDERABLES - DEVICE Fin al Result Performing Organization Address [facility] [[email or web address]] Co de Phone Number TOMY SAHU ([place]) 1 [facility] [place] [address] * (ABNORMAL) POCT glucose (11/29/2019 12:41 PM CDT) Glucose, POC 153(H) 71 - 98 mg/dL TOMY SAHU ([place]) Blood specimen (specimen) 11/29/2019 12:41 PM CDT 11/29/2019 12:41 PM CDT Roberto Carlos Ding MD LAB POCT ORDERABLES - DEVICE Fin al Result Performing Organization Address [facility]/ZIP Co de Phone Number TOMY SAHU ([place]) 1 [facility] [place] [address] * (ABNORMAL) POCT glucose (11/29/2019 11:38 AM CDT) Glucose, POC 171(H) 71 - 98 mg/dL TOMY SAHU ([place]) Blood specimen (specimen) 11/29/2019 11:38 AM CDT 11/29/2019 11:38 AM CDT us Roberto Carlos Ding MD LAB POCT ORDERABLES - DEVICE Fin al Result TOMY LUIS ALBERTO ([place]) 1 [facility] [place] [address] * TRANSTHORACIC ECHO (TTE) COMPLETE W DOPPLER/CF WO CONTRAST (11/29/2019 10:53 AM CDT) Anatomical Region Laterality Modality Ultrasound 11/29/2019 10:1 5 AM CDT Narrative 11/29/2019 11:03 AM CDT [address] [address] Echocardiogram Report Patient Name: KARINA MENJIVAR : 1995 Study Date: 11/29/2019 10:15:58 AM Gender: F Tech: Location: [id number] Ref.Provider: ROBERTO CARLOS DING Height(Cm): 163 BSA: 1.81 Weight(Kg): 72.6 Quality: Adequate Order Provider: ROBERTO CARLOS DING Procedures: Echocardiographic Report: Transthoracic echocardiogram with complete [...] By: Dr Mann Gonzalez 2019-11-29 11:03:36 CDT Procedure Note Mann Gonzalez, DO - 11/29/[address] [address] Echocardiogram Report Patient Name: KARINA MENJIVAR : 1995 Study Date: 11/29/2019 10:15:58 AM Gender: F Tech: DESTINY Location: [id number] Ref.Provider: ROBERTO CARLOS DING Height(Cm): 163 BSA: 1.81 Weight(Kg): 72.6 Quality: Adequate Order Provider: ROBERTO CARLOS DING Procedures: Echocardiographic Report: Transthoracic echocardiogram with complete 2D, M-Mode, and color Dopplerexamination. Indications: Tachycardia. Measurements: 2D/M Mode Doppler Measurement Value Normal Range Measurement Value Normal Range EF Teich MM 64.9 [ 55.0 - 70.0 ] percent MARIA DEL ROSARIO Vmax 2.61 [ 2.00 - 4.00 ]cm2 LVIDd MM 3.50 [ 3.90 - 5.30 [...] Peak Denys 1.01 [ 0.70 - 1.10 ]m/s AoR Diam MM 2.88 [ 2.60 - [...] ventricular systolic function with no focal wall motionabnormalities. Normal left ventricular size. Normal left ventricular wall thickness. Ejectionfraction is visually estimated at 67 %. Left Atrium: The left atrium is normal in size. Right Ventricle: Normal right ventricular size. Normal right ventricular systolicfunction. Right Atrium: The right atrium is normal in size. Aortic Valve: Aortic valve not well visualized. No evidence of hemodynamicallysignificant aortic stenosis by Doppler. No aortic regurgitation. Mitral Valve: No mitral valve regurgitation is seen. Pulmonic Valve: Normal structure of the pulmonic valve. Tricuspid Valve: Normal structure of the tricuspid valve. Tricuspid valve not wellvisualized. No evidence of tricuspid regurgitation. Pericardium: Pericardium not well visualized. Aorta: Sinus of Valsalva is normal. IVC: The IVC is not well visualized. Pulmonary Artery: Normal pulmonary artery size. Conclusions: Normal left ventricular systolic function with no focal wall motionabnormalities. Normal left ventricular size. Normal left ventricular wall thickness. Ejectionfraction is visually estimated at 67 %. Normal structure of the tricuspid valve. Tricuspid valve not wellvisualized. No evidence of tricuspid regurgitation. No significant valvular disease identified. Electronically Signed By: Dr Mann Gonzalez 2019-11-29 11:03:36 CDT Roberto Carlos Ding MD CV ECHO PROCEDURES Final Result * (ABNORMAL) POCT glucose (11/29/2019 10:34 AM CDT) Glucose, POC 168(H) 71 - 98 mg/dL TOMY [facility] ([place]) Blood specimen (specimen) 11/29/2019 10:34 AM CDT 11/29/2019 10:34 AM CDT us Roberto Carlos Ding MD LAB POCT ORDERABLES - DEVICE Fin al Result Performing Organization Address [facility] [[email or web address]] Co de Phone Number TOMY [facility] ([place]) 1 [facility] [place] [address] * eGFR (11/29/2019 9:46 AM CDT) [facility] eGFR 116 mL/min/1.7 3 m2 TOMY SAHU ([place]) Comment: Interpretive Data Reference Interval Normal ?>/= 90 mL/min/1.73m2 Mildly decreased* ? 60 - 89 mL/min/1.73m2 Mildly to moderately decreased ?45 - 59 mL/min/1.73m2 Moderately to severely decreased ??30 - 44 mL/min/1.73m2 Severely decreased ?15 - 29 mL/min/1.73m2 Kidney Failure ?< 15 ??mL/min/1.73m2 *Relative to young adult level If -[place] multiply value by 1.16. Estimated glomerular filtration [...] was last reviewed 2015. Blood specimen (specimen) 11/29/2019 9:46 AM CDT 11/29/2019 12:15 PM CDT us Ayana Prado MD LAB BLOOD ORDERABLES Final Resul t Performing Organization Address [facility] [[email or web address]] Co de Phone Number TOMY SAHU ([place]) 1 [facility] Department [place] [address] * Potassium (11/29/2019 9:46 AM CDT) Potassium, pl 4.3 3.3 - 4.9 mmol/L [facility] ([place]) Blood specimen (specimen) 11/29/2019 9:46 AM CDT 11/29/2019 9:49 AM CDT Roberto Carlos Ding MD LAB BLOOD ORDERABLES Final Resul t TOMY SAHU ([place]) 1 [facility] Department [place] [address] * (ABNORMAL) Basic metabolic panel (11/29/2019 9:46 AM CDT) Sodium 130(L) 135 - 145 mmol/L [facility] ([place] Potassium, pl 4.4 3.3 - 4.9 mmol/L [facility] ([place] Chloride 106 97 - 110 mmol/L [facility] ([place]) CO2 4(L) 22 - 32 mmol/L [facility] ([place]) Anion gap 20(H) 2 - 15 mmol/L [facility] ([place]) BUN 20 8 - 25 mg/dL [facility] Creatinine 0.73 0.60 - 1.10 mg/dL [facility] ([place]) Glucose 206(H) 70 - 199 mg/dL [facility] ([place]) Comment: Interpretive Data Fasting [...] 2017. Calcium 8.7 8.5 - 10.3 mg/dL ASHLEYTOS[facility] SAHU ([place]) Blood specimen (specimen) 11/29/2019 9:46 AM CDT 11/29/2019 12:15 PM CDT us Ayana Prado MD LAB BLOOD ORDERABLES Final Resul t Performing Organization Address [facility] [[email or web address]] Co de Phone Number TOMY SAHU ([place]) 1 [facility] [place] [address] * (ABNORMAL) POCT glucose (11/29/2019 9:31 AM CDT) Glucose, POC 163(H) 71 - 98 mg/dL TOMY SAHU ([place]) Blood specimen (specimen) 11/29/2019 9:31 AM CDT 11/29/2019 9:31 AM CDT us Roberto Carlos Ding MD LAB POCT ORDERABLES - DEVICE Fin al Result Performing Organization Address [facility] [[email or web address]] Co de Phone Number TOMY SAHU ([place]) 1 [facility] [place] [address] * (ABNORMAL) POCT glucose (11/29/2019 8:17 AM CDT) Glucose, POC 247(H) 71 - 98 mg/dL TOMY SAHU ([place]) Blood specimen (specimen) 11/29/2019 8:17 AM CDT 11/29/2019 8:17 AM CDT Roberto Carlos Ding MD LAB POCT ORDERABLES - DEVICE Fin al Result Performing Organization Address City[facility] [[email or web address]] Co de Phone Number TOMY SAHU ([place]) 1 [facility] [place] [address] * (ABNORMAL) POCT glucose (11/29/2019 6:12 AM CDT) Glucose, POC 275(H) 71 - 98 mg/dL TOMY SAHU ([place]) Blood specimen (specimen) 11/29/2019 6:12 AM CDT 11/29/2019 6:12 AM CDT us Roberto Carlos Ding MD LAB POCT ORDERABLES - DEVICE Fin al Result Performing Organization Address [facility]/ZIP Co de Phone Number TOMY SAHU ([place]) 1 [facility] [place] [address] * eGFR (11/29/2019 3:33 AM CDT) eGFR 122 mL/min/1.7 3 m2 TOMY SAHU ([place]) Comment: Interpretive Data Reference Interval Normal ?>/= 90 mL/min/1.73m2 Mildly decreased* ? 60 - 89 mL/min/1.73m2 Mildly to moderately decreased ?45 - 59 mL/min/1.73m2 Moderately to severely decreased ??30 - 44 mL/min/1.73m2 Severely decreased ?15 - 29 mL/min/1.73m2 Kidney Failure ?< 15 ??mL/min/1.73m2 *Relative to young adult level If -[place] multiply value by 1.16. Estimated glomerular filtration [...] was last reviewed 2015. Blood specimen (specimen) 11/29/2019 3:33 AM CDT 11/29/2019 3:36 AM CDT us Mann Paris Jr., MD LAB BLOOD ORDERABLE S Final Result Performing Organization Address [facility]/ZIP Co de Phone Number TOMY SAHU ([place]) 1 [facility] [place] [address] * Lactate (11/29/2019 3:33 AM CDT) Lactate 1.6 0.7 - 2.0 mmol/L [facility] ([place]) Blood specimen (specimen) 11/29/2019 3:33 AM CDT 11/29/2019 3:36 AM CDT Ayana Prado MD LAB BLOOD ORDERABLES Final Resul t Performing Organization Address City/[facility]/ZIP Co de Phone Number TOMY SAHU ([place]) 1 [place] [address] * (ABNORMAL) Hemoglobin A1c (11/29/2019 3:33 AM CDT) Pathologist [facility] Hgb A1C 8.4(H) 4.0 - 5.6 % TOMY [facility] ([place]) Estimated Average Glucose 194 mg/dL [facility] ([place]) Comment: The ADA recommends reporting an estimated Average Glucose (eAG) with all Hemoglobin A1c results using the equation derived from a study of 507 normal and diabetic adults. ??Minority populations were underrepresented and children were not included. ?? (Diabetes Care 31:7000-1717, 2008). ??The eAG is not equivalent to a fasting glucose. Blood specimen (specimen) 11/29/2019 3:33 AM CDT 11/29/2019 3:36 AM CDT Warren Phillips MD LAB BLOOD ORDERABLES Final Result TOMY SAHU ([place]) 1 [place] [address] * (ABNORMAL) Basic metabolic panel (11/29/2019 3:33 AM CDT) Sodium 132(L) 135 - 145 mmol/L [facility] ([place]) Potassium, pl 5.4(H) 3.3 - 4.9 mmol/L [facility] ([place]) Chloride 106 97 - 110 mmol/L [facility] ([place]) CO2 3(L) 22 - 32 mmol/L [facility] ([place]) Anion gap 23(H) 2 - 15 mmol/L [facility] ([place]) BUN 25 8 - 25 mg/dL [facility] Creatinine 0.70 0.60 - 1.10 mg/dL [facility] ([place]) Glucose 320(H) 70 - 199 mg/dL [facility] ([place]) [...] 2017. Calcium 9.0 8.5 - 10.3 mg/dL [facility] ([place]) Blood specimen (specimen) 11/29/2019 3:33 AM CDT 11/29/2019 3:36 AM CDT us Mann Paris Jr., MD LAB BLOOD ORDERABLE S Final Result Performing Organization Address [facility]/ZIP Co de Phone Number TOMY SAHU ([place]) 1 [facility] [address] * Magnesium (11/29/2019 3:25 AM CDT) Magnesium 2.1 1.4 - 2.5 mg/dL [facility] ([place]) Blood specimen (specimen) 11/29/2019 3:25 AM CDT 11/29/2019 5:56 AM CDT us Ayana Prado MD LAB BLOOD ORDERABLES Final Resul t TOMY SAHU ([place]) 1 [facility] [place] [address] * ECG 12 lead (11/29/2019 2:51 AM CDT) 11/29/2019 2:51 AM CDT Narrative [facility] - 11/30/2019 7:22 AM CDT Vent Rate: 155 bpm RR Interval: 386 msec TN Interval: 128 msec QRS Duration: 74 msec QT Interval: 258 msec QTC Interval: 345 msec P-R-T Boyers: 79 - 90 - 43 degrees SINUS TACHYCARDIA CONSIDER BIATRIAL ENLARGEMENT NONSPECIFIC T-WAVE ABNORMALITY ABNORMAL RHYTHM ECG Electronically Signed By: Cl Patel MD us Ayana Prado MD ECG ORDERABLES Final Result Performing Organization Address [facility]/ZIP Co de Phone Number [facility] * (ABNORMAL) POCT glucose (11/29/2019 2:11 AM CDT) Glucose, POC 302(H) 71 - 98 mg/dL TOMY [facility] ([place]) Blood specimen (specimen) 11/29/2019 2:11 AM CDT 11/29/2019 2:11 AM CDT Roberto Carlos Ding MD LAB POCT ORDERABLES - DEVICE Fin al Result Performing Organization Address [facility] [[email or web address]] Co de Phone Number TOMY SAHU ([place]) 1 [facility] [place] [address] * (ABNORMAL) POCT glucose (11/28/2019 11:50 PM CDT) Glucose, POC 279(H) 71 - 98 mg/dL [facility] ([place]) Blood specimen (specimen) 11/28/2019 11:50 PM CDT 11/28/2019 11:50 PM CDT Roberto Carlos Ding MD LAB POCT ORDERABLES - DEVICE Fin al Result Performing Organization Address City/[facility]/ZIP Co de Phone Number TOMY LUIS ALBERTO ([place]) 1 [facility] [place] [address] * (ABNORMAL) POCT glucose (11/28/2019 8:31 PM CDT) Glucose, POC 267(H) 71 - 98 mg/dL TOMY SAHU ([place]) Blood specimen (specimen) 11/28/2019 8:31 PM CDT 11/28/2019 8:31 PM CDT Roberto Carlos Ding MD LAB POCT ORDERABLES - DEVICE Fin al Result TOMY SAHU ([place]) 1 [facility] [place] [address] * (ABNORMAL) POCT glucose (11/28/2019 4:31 PM CDT) Glucose, POC 268(H) 71 - 98 mg/dL TOMY SAHU ([place]) Blood specimen (specimen) 11/28/2019 4:31 PM CDT 11/28/2019 4:31 PM CDT Roberto Carlos Ding MD LAB POCT ORDERABLES - DEVICE Fin al Result Performing Organization Address City/[facility]/ZIP Co de Phone Number TOMY SAHU ([place]) 1 [facility] [place] [address] * (ABNORMAL) POCT glucose (11/28/2019 11:48 AM CDT) Glucose, POC 240(H) 71 - 98 mg/dL TOMY SAHU ([place]) Blood specimen (specimen) 11/28/2019 11:48 AM CDT 11/28/2019 11:48 AM CDT Roberto Carlos Ding MD LAB POCT ORDERABLES - DEVICE Fin al Result TOMY SAHU ([place]) 1 [facility] [place] [address] * (ABNORMAL) POCT glucose (11/28/2019 7:24 AM CDT) Glucose, POC 234(H) 71 - 98 mg/dL [facility] ([place]) Blood specimen (specimen) 11/28/2019 7:24 AM CDT 11/28/2019 7:24 AM CDT us Roberto Carlos Ding MD LAB POCT ORDERABLES - DEVICE Fin al Result TOMY SAHU ([place]) 1 [facility] [place] [address] * (ABNORMAL) POCT glucose (11/28/2019 5:21 AM CDT) Glucose, POC 220(H) 71 - 98 mg/dL [facility] ([place]) Blood specimen (specimen) 11/28/2019 5:21 AM CDT 11/28/2019 5:21 AM CDT us Mann Paris Jr., MD LAB POCT ORDERABLES - DEVICE Final Result Performing Organization Address City/[facility]/ZIP Co de Phone Number TOMY SAHU ([place]) 1 [facility] [place] [address] * (ABNORMAL) POCT glucose (11/28/2019 1:56 AM CDT) Glucose, POC 216(H) 71 - 98 mg/dL [facility] ([place]) Blood specimen (specimen) 11/28/2019 1:56 AM CDT 11/28/2019 1:56 AM CDT us Mann Paris Jr., MD LAB POCT ORDERABLES - DEVICE Final Result Performing Organization Address City/[facility]/ZIP Co de Phone Number TOYM SAHU ([place]) 1 [facility] [place] [address] * (ABNORMAL) POCT glucose (11/27/2019 11:52 PM CDT) Glucose, POC 194(H) 71 - 98 mg/dL TOMY SAHU ([place]) Blood specimen (specimen) 11/27/2019 11:52 PM CDT 11/27/2019 11:52 PM CDT Mann Paris Jr., MD LAB POCT ORDERABLES - DEVICE Final Result Performing Organization Address City/[facility]/ZIP Co de Phone Number TOMY SAHU ([place]) 1 [facility] [place] [address] * (ABNORMAL) POCT glucose (11/27/2019 8:30 PM CDT) Glucose, POC 223(H) 71 - 98 mg/dL TOMY SAHU ([place]) Blood specimen (specimen) 11/27/2019 8:30 PM CDT 11/27/2019 8:30 PM CDT Mann Paris Jr., MD LAB POCT ORDERABLES - DEVICE Final Result Performing Organization Address [facility] [[email or web address]] Co de Phone Number TOMY SAHU ([place]) 1 [facility] [place] [address] * (ABNORMAL) POCT glucose (11/27/2019 4:48 PM CDT) Glucose, POC 223(H) 71 - 98 mg/dL TOMY SAHU ([place]) Blood specimen (specimen) 11/27/2019 4:48 PM CDT 11/27/2019 4:48 PM CDT Mann Paris Jr., MD LAB POCT ORDERABLES - DEVICE Final Result Performing Organization Address [facility]/ZIP Co de Phone Number TOMY SAHU ([place]) 1 [facility] [place] [address] * (ABNORMAL) Drugs of Abuse Screen, Urine with Reflex Confirmation (11/27/2019 2:06 PM CDT) Amphetamine, ur Not Detected CutOff [...] Data was last reviewed 2018. Cannabinoids, ur Detected(A) CutOff 50 ng/mL [facility] ([place]) Comment: [...] Data was last reviewed 2018. Urine Creatinine 45 mg/dL ASHLEY SAHU ([place]) Comment: Interpretive Data Urine Creatinine: < 10 mg/dL is extremely dilute = or > 10 but < 20 mg/dL is dilute = or > 20 mg/dL is normal Current Interpretive Data was last revised on 2017. Urine 11/27/2019 2:06 PM CDT 11/27/2019 2:09 PM CDT Narrative TOMY SAHU ([place]) - 11/27/2019 3:00 PM CDT Drug of Abuse screening is performed by immunoassay for medical purposes only. ??This is not to be used for Pain Management purposes. ??If Detected, confirmation testing will be performed for Amphetamines, Cocaine, Fentanyl, Methadone, Opiates, Oxycodone or Phencyclidine. us Ayana Prado MD LAB URINE ORDERABLES Final Resul t TOMY SAHU ([place]) 1 [facility] [place] [address] * (ABNORMAL) POCT glucose (11/27/2019 11:34 AM CDT) Glucose, POC 195(H) 71 - 98 mg/dL TOMY SAHU ([place]) Blood specimen (specimen) 11/27/2019 11:34 AM CDT 11/27/2019 11:34 AM CDT us Mann Paris Jr., MD LAB POCT ORDERABLES - DEVICE Final Result TOMY SAHU ([place]) 1 [facility] [place] [address] * (ABNORMAL) POCT glucose (11/27/2019 7:30 AM CDT) Glucose, POC 222(H) 71 - 98 mg/dL [facility] ([place]) Blood specimen (specimen) 11/27/2019 7:30 AM CDT 11/27/2019 7:30 AM CDT us Mann Paris Jr., MD LAB POCT ORDERABLES - DEVICE Final Result Performing Organization Address [facility]/ZIP Co de Phone Number TOMY SAHU ([place]) 1 [facility] [place] [address] * (ABNORMAL) POCT glucose (11/27/2019 1:50 AM CDT) Glucose, POC 226(H) 71 - 98 mg/dL TOMY SAHU ([place]) Blood specimen (specimen) 11/27/2019 1:50 AM CDT 11/27/2019 1:50 AM CDT us Mann Paris Jr., MD LAB POCT ORDERABLES - DEVICE Final Result TOMY SAHU ([place]) 1 [facility] [place] [address] * (ABNORMAL) Sepsis Lactate w/ Reflex (11/26/2019 10:15 PM CDT) Pathologist [facility] Sepsis Lactate 2.4(H) 0.7 - 2.0 mmol/L TOMY SAHU ([place]) Blood specimen (specimen) 11/26/2019 10:15 PM CDT 11/26/2019 10:23 PM CDT us Pato Haney MD LAB BLOOD ORDERABLES Final R esult TOMY SAHU ([place]) 1 [facility] [place] [address] * (ABNORMAL) POCT glucose (11/26/2019 9:05 PM CDT) [facility] Glucose, POC 283(H) 71 - 98 mg/dL TOMY SAHU ([place]) Blood specimen (specimen) 11/26/2019 9:05 PM CDT 11/26/2019 9:05 PM CDT us Mann Paris Jr., MD LAB POCT ORDERABLES - DEVICE Final Result Performing Organization Address [facility]/ZIP Co de Phone Number TOMY SAHU ([place]) 1 [facility] [place] [address] * (ABNORMAL) Sepsis Lactate w/ Reflex (11/26/2019 7:45 PM CDT) Pathologist [facility] Sepsis Lactate 2.5(H) 0.7 - 2.0 mmol/L TOMY SAHU ([place]) Blood specimen (specimen) 11/26/2019 7:45 PM CDT 11/26/2019 8:02 PM CDT us Pato Haney MD LAB BLOOD ORDERABLES Final R esult TOMY SAHU ([place]) 1 [facility] [place] [address] * (ABNORMAL) POCT glucose (11/26/2019 3:49 PM CDT) Glucose, POC 252(H) 71 - 98 mg/dL [facility] ([place]) Blood specimen (specimen) 11/26/2019 3:49 PM CDT 11/26/2019 3:49 PM CDT Pato Haney MD LAB POCT ORDERABLES - DEVICE Final Result Performing Organization Address City/[facility]/ZIP Co de Phone Number [facility] ([place]) 1 [place] [address] * (ABNORMAL) POCT glucose (11/26/2019 1:38 PM CDT) Pathologist [facility] Glucose, POC 293(H) 71 - 98 mg/dL [facility] ([place]) Blood specimen (specimen) 11/26/2019 1:38 PM CDT 11/26/2019 1:38 PM CDT Pato Haney MD LAB POCT ORDERABLES - DEVICE Final Result Performing Organization Address City/[facility] [[email or web address]] Co de Phone Number [facility] ([place]) 1 [place] [address] * COVID-19 Coronavirus RNA Nasopharyngeal (11/26/2019 1:37 PM CDT) [facility] COVID-19 RNA Negative Negative [facility] ([place]) Comment: Testing performed by [facility] ([phone]). This test is performed using the Stellarray Xpert Xpress SARS-CoV-2 assay. ??This is a real-time RT-PCR test intended for the qualitative detection of nucleic acid from the SARS-CoV-2. ??This assay has been reviewed by the FDA for Emergency Use Authorization (EUA). The performance characteristics have been verified by the [facility]. ??Results must be considered in the clinical context and a negative result does not rule out infection. Testing performed by: [facility], [address] [place] [address], [place]., [address] Nasopharyngeal 11/26/2019 1: 37 PM CDT 11/26/2019 2:17 PM CDT Narrative [facility] ([place]) - 11/26/2019 3:25 PM CDT Is the patient experiencing any symptoms consistent with COVID (eg. Fever, cough, shortness of breath)?->Yes What is the reason for testing?->Likely to be admitted, result required within 4 hours for medical management or bed placement Pato Haney MD LAB MICROBIOLOGY - GENERAL O RDERABLES Final Result [facility] ([place]) 1 [facility] Department [place] [address] * (ABNORMAL) Urinalysis reflex to microscopic and culture Urine (11/26/2019 12:17 PM CDT) Color, ur Yellow Yellow [facility] ([place]) Clarity, ur Clear Clear [facility] ([place]) Specific gravity, ur 1.027(H) 1.010 - 1.025 [facility] ([place]) pH, urine 7.0 [facility] ([place]) Protein, ur ql Negative Negative [facility] ([place]) Glucose, ur ql 4+(A) Negative [facility] ([place]) Ketones, ur Trace Negative [facility] ([place]) Bilirubin, ur Negative Negative [facility] ([place]) Blood, ur Negative Negative [facility] ([place]) Urobilinogen, ur <2.0 <2.0 mg/dL [facility] ([place]) Nitrite, ur Negative Negative [facility] ([place]) Leukocyte esterase, ur Negative Negative [facility] ([place]) UA reflex comment Reflex conditions for microscopic UA and culture not met. [facility] ([place]) Urine 11/26/2019 12:1 7 PM CDT 11/26/2019 12:20 PM CDT Narrative [facility] ([place]) - 11/26/2019 12:24 PM CDT ?? Urine pH is affected by diet, medications, systemic acid-base disturbances, and renal tubular function. ??pH may affect urinary stone formation. ??For example, urine pH below 6.0 may help reduce the tendency for calcium phosphate stones and pH greater than 6.0 may reduce the tendency for uric acid stone formation. Source: [facility] [place]. Last revised 05-13-2017 Pato Haney MD LAB MICROBIOLOGY - GENERAL O RDERABLES Final Result Performing Organization Address [facility] [[email or web address]] Co de Phone Number TOMY SAHU ([place]) 1 [facility] Department [place] [address] * ECG 12 lead (11/26/2019 11:45 AM CDT) 11/26/2019 11:4 5 AM CDT Narrative [facility] - 12/03/2019 8:33 PM CDT Vent Rate: 104 bpm RR Interval: 574 msec TN Interval: 147 msec QRS Duration: 87 msec QT Interval: 337 msec QTC Interval: 397 msec P-R-T Boyers: 71 - 94 - 21 degrees SINUS TACHYCARDIA LEFT ATRIAL ENLARGEMENT ??[-0.15mV P WAVE IN V1/V2] BORDERLINE RIGHT AXIS DEVIATION ??[QRS AXIS > 90] NONSPECIFIC ST \T\ T-WAVE ABNORMALITY ABNORMAL ECG Electronically Signed By: Cl Patel MD Pato Haney MD ECG ORDERABLES Final Result Performing Organization Address [facility] Phone Number [facility] [employer] [facility] * (ABNORMAL) Manual Differential (11/26/2019 11:33 AM CDT) Differential Manual [facility] ([place]) Cells Counted 100 [facility] ([place]) Neutrophil abs 6.6(H) 1.7 - 6.5 K/cumm [facility] ([place]) Lymphocyte abs 1.5 0.8 - 3.3 K/cumm [facility] ([place]) Monocyte abs 0.1(L) 0.2 - 0.8 K/cumm [facility] ([place]) Neutrophil pct 81.0 % [facility] ([place]) Comment: Interpretive [...] was last revised on 2017. Monocyte pct 1.0 % TOMY SAHU ([place]) Comment: Interpretive Data Percent cell count reference ranges are not reported, since discordance with absolute values may lead to misinterpretation of CBC data. Current Interpretive Data was last revised on 2017. RBC morphology Consistent with RBC Indicies TOMY SAHU ([place]) Platelet estimate Automated Count Confirmed TOMY SAHU ([place]) Blood specimen (specimen) 11/26/2019 11:33 AM CDT 11/26/2019 11:40 AM CDT us Pato Haney MD LAB BLOOD ORDERABLES Final R esult TOMY SAHU ([place]) 1 [facility] Department [place] [address] * eGFR (11/26/2019 11:33 AM CDT) eGFR 133 mL/min/1.7 3 m2 TOMY SAHU ([place]) Comment: Interpretive Data Reference Interval Normal ?>/= 90 mL/min/1.73m2 Mildly decreased* ? 60 - 89 mL/min/1.73m2 Mildly to moderately decreased ?45 - 59 mL/min/1.73m2 Moderately to severely decreased ??30 - 44 mL/min/1.73m2 Severely decreased ?15 - 29 mL/min/1.73m2 Kidney Failure ?< 15 ??mL/min/1.73m2 *Relative to young adult level If -[place] multiply value by 1.16. Estimated glomerular filtration [...] was last reviewed 2015. Blood specimen (specimen) 11/26/2019 11:33 AM CDT 11/26/2019 11:36 AM CDT Pato Haney MD LAB BLOOD ORDERABLES Final R esult [facility] ([place]) 1 [facility] [address] * (ABNORMAL) Blood gas, venous (11/26/2019 11:33 AM CDT) pH, Venous 7.43 7.32 - 7.43 [facility] ([place]) PCO2, Venous 33(L) 40 - 50 mmHg [facility] ([place]) PO2, Venous 56 mmHg [facility] ([place]) Comment: Interpretive Data No Reference Range Established Current Interpretive Data was last revised on 2017. HCO3 Venous, Calculated 21 20 - 30 mmol/L [facility] ([place]) BE, venous -2 mmol/L [facility] ([place]) Comment: Interpretive Data No Reference Range Established Current Interpretive Data was last revised on 2017. Blood specimen (specimen) 11/26/2019 11:33 AM CDT 11/26/2019 11:36 AM CDT us Pato Haney MD LAB BLOOD ORDERABLES Final R esult TOMY SAHU ([place]) 1 [facility] [address] * (ABNORMAL) Sepsis Lactate w/ Reflex (11/26/2019 11:33 AM CDT) Sepsis Lactate 3.8(H) 0.7 - 2.0 mmol/L [facility] ([place]) Blood specimen (specimen) 11/26/2019 11:33 AM CDT 11/26/2019 11:36 AM CDT us Pato Haney MD LAB BLOOD ORDERABLES Final R esult TOMY [facility] ([place]) 1 [facility] [place] [address] * (ABNORMAL) Comprehensive metabolic panel (11/26/2019 11:33 AM CDT) Sodium 139 135 - 145 mmol/L [facility] ([place]) [...] - 1.10 mg/dL [facility] ([place]) Glucose 275(H) 70 - 199 mg/dL [facility] ([place]) [...] interpretive data was last revised 2017. Calcium 9.3 8.5 - 10.3 mg/dL [facility] ([place]) Bilirubin, total 0.3 0.1 - 1.2 mg/dL [facility] ([place]) Protein, pl 7.0 6.5 - 8.5 g/dL [facility] ([place]) Albumin 4.3 3.5 - 5.0 g/dL [facility] ([place]) Alk phos 80 40 - 130 Units/L [facility] ([place]) ALT 11 7 - 45 Units/L [facility] ([place]) AST 15 10 - 45 Units/L [facility] ([place]) Blood specimen (specimen) 11/26/2019 11:33 AM CDT 11/26/2019 11:36 AM CDT Pato Haney MD LAB BLOOD ORDERABLES Final R esult [facility] ([place]) 1 [facility] Department [place] [address] * (ABNORMAL) CBC with auto differential (11/26/2019 11:33 AM CDT) WBC 8.2 3.8 - 9.9 K/cumm [facility] ([place]) Hgb 14.5 11.9 - 15.5 g/dL [facility] ([place]) Hct 45.4 35.6 - 45.5 % [facility] ([place]) Plt 388 150 - 400 K/cumm [facility] ([place]) MPV 9.3 9.1 - 12.3 fL [facility] ([place]) RBC 4.97 3.90 - 5.20 M/cumm [facility] ([place]) MCV 91.3 81.3 - 96.4 fL [facility] ([place]) MCH 29.2 27.1 - 33.3 pg [facility] ([place]) MCHC 31.9(L) 32.3 - 35.7 g/dL [facility] ([place]) RDW CV 13.5 11.1 - 14.9 % [facility] ([place]) RDW SD 45.3 35.7 - 48.1 fL [facility] ([place]) NRBC abs 0.00 0.00 - 0.01 K/cumm [facility] ([place]) Blood specimen (specimen) 11/26/2019 11:33 AM CDT 11/26/2019 11:40 AM CDT Pato Haney MD LAB BLOOD ORDERABLES Final R esult TOMY SAHU ([place]) 1 [facility] Department [place] [address] * (ABNORMAL) POCT glucose (11/26/2019 11:09 AM CDT) Glucose, POC 268(H) 71 - 98 mg/dL TOMY SAHU ([place]) Blood specimen (specimen) 11/26/2019 11:09 AM CDT 11/26/2019 11:09 AM CDT us Notinfile Unknown LAB POCT ORDERABLES - DEVICE F inal Result TOMY SAHU ([place]) 1 [facility] [place] [address] documented in this encounter Visit Diagnoses Diagnosis Bilious vomiting with nausea- Primary Nausea and vomiting Nausea with vomiting Increased lactic acid level Other nonspecific abnormal serum enzyme levels Elevated random blood glucose level Uncontrolled type 1 diabetes mellitus with hyperglycemia (HCC) Lactic acidosis Acidosis Esophagitis Unspecified esophagitis documented in this encounter Administered Medications Inactive Administered Medications - up to 3 most recent administrations Medication Order MAR Action Action Date Dose Rate Site bisacodyl EC (DULCOLAX EC) tablet 10 mg 10 mg, oral, Daily PRN, constipation, If no results 24 hours after milk of magnesia, Starting on Wed11/26/19 at 2058, Do not crush, chew, cut, dissolve, open or otherwise manipulate tablet/capsule. carboxymethylcellulose (REFRESH TEARS) 0.5 % ophthalmic liquid 1 drop 1 drop, left eye, 4 times daily PRN, dry eyes, eye irritation, Starting on Wed12/01/19 at 0103 dextrose (D10W) 10% bolus 250 mL 250 mL, intravenous, at 1,000 mL/hr, Administer over 15 Minutes, Every 15 min PRN, blood glucose less than 70 mg/dL and UNABLE to swallow/take PO glucose/juice., Starting on Wed11/26/19 at 2220, After treatment for hypoglycemia, recheck BG followed by treatment every 15 minutes until the BG is greater than 100 mg/dL. Then check BG 1 hour post treatment. If BG is less than 100 mg/dL, repeat Q15 minute BG checks and treatment. Call MD for each episode of hypoglycemia., Indications: hypoglycemic disorderIndications:hypogly cemic disorder New 11/30/2019 9:53 AM CDT 250 mL 1000 mL/hr dextrose 5% and sodium chloride 0.45% infusion (premix) 150 mL/hr, intravenous, Continuous, Starting on Wed11/29/19 at 1945 New 11/30/2019 7:24 AM CDT 150 mL/hr 150 mL/hr Rate/Dose Verify 11/30/2019 3:05 AM CDT 150 mL/hr 150 mL/ hr 11/30/2019 1:19 AM CDT 150 mL/hr 150 mL/hr dextrose 5% and sodium chloride 0.45% with potassium chloride 20 mEq/L infusion (premix) 100 mL/hr, intravenous, Continuous, Starting on Wed11/30/19 at 0900 11/30/2019 7:47 PM CDT 100 mL/hr 100 mL/hr 11/30/2019 10:50 AM CDT 100 mL/hr 100 mL/hr Rate/Dose Change 11/30/2019 8:29 AM CDT 100 mL/hr 100 mL/ hr dextrose 5% infusion 100 mL/hr, intravenous, Continuous, Starting on Wed11/29/19 at 0815, Start once BS <250 11/29/2019 6:21 PM CDT 100 mL/hr 100 mL/hr 11/29/2019 8:29 AM CDT 100 mL/hr 100 mL/hr dextrose gel in packet 15 g 15 g, oral, Every 15 min PRN, low blood sugar, blood glucose less than 70 mg/dL, Starting on Wed11/26/19 at 2220, If patient is alert and able to [...] for each episode of hypoglycemia., Indications: hypoglycemic disorderIndications:hypoglycemic disorder glucagon injection 1 mg 1 mg, intramuscular, Administer over 1 Minutes, Every 30 min PRN, low blood sugar, blood glucose less than 70 mg/dL AND no IV access AND unable to take PO glucose/jiuce., Starting on Wed11/26/19 at 2220, After Glucagon is administered, position patient on [...] MD for each episode of hypoglycemia., Indications: HypoglycemiaIndications:Hypoglyc emia insulin glargine (LANTUS,BASAGLAR) pen injection 10 Units 10 Units, subcutaneous, Nightly, First dose (after last modification) on Wed11/28/19 at 2100, Do not mix with other insulins Given 11/28/2019 8:29 PM CDT 10 Units Left Upper Arm insulin glargine (LANTUS,BASAGLAR) pen injection 22 Units 22 Units (rounded from 21.93 Units = 0.3 Units/kg ? 73.1 kg), subcutaneous, Nightly, First dose on Wed11/30/19 at 2200, Discontinue insulin drip 2 hours after administration of dose. Do not mix with other insulins, Indications: Diabetes MellitusIndications:Diabetes Mellitus Given 11/30/2019 10:01 PM CDT 22 Units Left Upper Arm insulin glargine (LANTUS,BASAGLAR) pen injection 5 Units 5 Units, subcutaneous, Once, On Wed11/26/19 at 2300, For 1 dose, Do not mix with other insulins, Indications: Diabetes MellitusIndications:Diabetes Mellitus Given 11/26/2019 10:39 PM CDT 5 Units Left Upper Arm insulin glargine (LANTUS,BASAGLAR) pen injection 5 Units 5 Units, subcutaneous, Nightly, First dose on Wed11/27/19 at 2100, Do not mix with other insulins Given 11/27/2019 8:31 PM CDT 5 Units Left Upper Arm insulin lispro (HumaLOG) pen injection 1-3 Units 1-3 Units, subcutaneous, Nightly, First dose on Wed11/26/19 at 2300, Blood Sugar Mid Dose PM - PO patients 175 or less No insulin 176 - 200 1 unit 201 - 250 2 units 251 - 299 3 units Greater than 299 Call MD for hyperglycemia management instructions Do NOT hold for NPO status., Indications: Diabetes MellitusIndications:Diabetes Mellitus Given 11/26/2019 10:39 PM CDT 3 Units Left Upper Arm insulin lispro (HumaLOG) pen injection 1-3 Units 1-3 Units, subcutaneous, Every 6 hours scheduled, First dose on Wed11/27/19 at 0615, Blood Sugar Mid Dose - NPO patients 175 or less No Insulin 176 - 200 1 unit 201 - 250 2 units 251 - 299 3 units Greater than 299 Call MD for hyperglycemia management instructions Do NOT hold for NPO status., Indications: Diabetes MellitusIndications:Diabetes Mellitus Given 11/29/2019 6:12 AM CDT 3 Units Left Upper Arm Given 11/28/2019 11:51 PM CDT 3 Units L eft Upper Arm Given 11/28/2019 5:32 PM CDT 3 Units Ri ght Upper Arm insulin lispro (HumaLOG) pen injection 1-4 Units 1-4 Units, subcutaneous, Nightly, First dose on Wed12/01/19 at 2100, Blood Sugar High Dose PM - PO patients 139 or less No insulin 140 - 175 1 unit 176 - 200 2 units 201 - 250 3 units 251 - 299 4 units Greater than 299 Call MD for hyperglycemia management instructions Do NOT hold for NPO status., Indications: Diabetes MellitusIndications:Diabe celia Mellitus insulin lispro (HumaLOG) pen injection 1-4 Units 1-4 Units, subcutaneous, Every 24 hours, First dose on Wed12/01/19 at 0200, Blood Sugar High Dose 02:00 - PO patients 139 or less No insulin 140 - 175 1 unit 176 - 200 2 units 201 - 250 3 units 251 - 299 4 units Greater than 299 Call MD for hyperglycemia management instructions Do NOT hold for NPO status., Indications: Diabetes MellitusIndications:Diabe celia Mellitus Given 12/01/2019 2:10 AM CDT 3 Units Right Upper Arm insulin lispro (HumaLOG) pen injection 1-7 Units 1-7 Units, subcutaneous, 3 times daily with meals, First dose on Wed12/01/19 at 0800, Blood Sugar High Dose meal time - PO patients 139 or less No insulin 140 - 175 2 unit 176 - 200 3 unit 201 - 250 5 units 251 - 299 7 units Greater than 299 Call MD for hyperglycemia management instructions Do NOT hold for NPO status., Indications: Diabetes MellitusIndications:Diabe celia Mellitus Given 12/01/2019 8:36 AM CDT 3 Units Left Upper Arm insulin lispro (HumaLOG) pen injection 3 Units 3 Units, subcutaneous, Once, On Wed11/29/19 at 0400, For 1 dose Given 11/29/2019 3:28 AM CDT 3 Units Right Upper Arm insulin lispro (HumaLOG) pen injection 5 Units 5 Units, subcutaneous, 3 times daily with meals, First dose on Wed12/01/19 at 0800, If BG 100 mg/dl or more, give with meals/tube feeds . If BG less than 100 mg/dl, give after meals/tube feeds. Hold pre-meal insulin if NPO, unable to eat, or BG less than 70 mg/dl. Administer pre-meal doses when patient's food tray arrives in room or after the meal in patients with poor meal intake. If patient is not eating the majority of their meal, call MD for an adjustment in patient's insulin dose., Indications: Diabetes MellitusIndications:Diabe celia Mellitus Given 12/01/2019 8:38 AM CDT 5 Units Left Upper Arm insulin regular (HumuLIN R, NovoLIN R) 100 Units in sodium chloride 0.9% 100 mL (1 Units/mL) infusion 0-30 Units/hr (0-30 mL/hr), 1 units/mL, intravenous, Titrated, Starting on Wed11/29/19 at 0815, Until Wed12/01/19 at 0648, Indications: Hyperglycemia, Desired Range (mg/dL): 130-180 general patients, Multiplier: 0.01, Adjust rate per GlucoStabilizer program for dka order When new IV tubing is used, completely prime the tubing. Once primed, waste an additional 20 ml of insulin infusion using the IV pump prior to connecting to patient., RoutineIndications:Hyperg lycemia Rate/Dose Change 11/30/2019 9:58 PM CDT 1 Units/hr 1 mL/hr Rate/Dose Change 11/30/2019 8:51 PM CDT 1.3 Units/hr 1.3 m L/hr Rate/Dose Change 11/30/2019 7:45 PM CDT 2.7 Units/hr 2.7 m L/hr insulin regular (HumuLIN R, NovoLIN R) injection 4 Units 4 Units, intravenous, Once, On Wed11/26/19 at 1402, For 1 dose Given 11/26/2019 2:05 PM CDT 4 Units LORazepam (ATIVAN) tablet 0.5 mg 0.5 mg, oral, Daily, First dose (after last modification) on Wed11/29/19 at 0900 magnesium hydroxide (MILK OF MAGNESIA) 80 mg/mL (33.3 mg/mL as elemental magnesium) oral suspension 30 mL 30 mL, oral, Daily PRN, constipation, Starting on Wed11/26/19 at 2058 magnesium sulfate 2 g/50 mL in water (premix) 2 g 2 g, intravenous, Administer over 60 Minutes, Once, On Nurys 11/30/19 at 1400, For 1 dose New Bag 11/30/2019 2:30 PM CDT 2 g metoclopramide (REGLAN) injection 10 mg 10 mg, intravenous, Administer over 1 Minutes, Every 8 hours scheduled, First dose (after last modification) on Wed11/27/19 at 1400 Given 12/01/2019 5:05 AM CDT 10 mg Given 11/30/2019 10:02 PM CDT 10 mg Given 11/30/2019 2:29 PM CDT 10 mg metoclopramide (REGLAN) injection 5 mg 5 mg, intravenous, Administer over 1 Minutes, Every 6 hours PRN, nausea and/or vomiting, Starting on Wed11/27/19 at 0510 Given 11/27/2019 5:56 AM CDT 5 mg metoprolol (LOPRESSOR) injection 5 mg 5 mg, intravenous, Administer over 1 Minutes, Once, On Wed11/29/19 at 0915, For 1 dose Given 11/29/2019 8:49 AM CDT 5 m g metoprolol (LOPRESSOR) injection 5 mg 5 mg, intravenous, Administer over 1 Minutes, Once, On Wed11/29/19 at 1315, For 1 dose Given 11/29/2019 12:45 PM CDT 5 mg metoprolol (LOPRESSOR) injection 5 mg 5 mg, intravenous, Administer over 1 Minutes, Every 6 hours PRN, other, for HR >120; but hold if sbp <100, Starting on Wed11/29/19 at 1800 Given 11/29/2019 6:16 PM CDT 5 mg mineral oil (FLEET MINERAL OIL) enema 1 enema 1 enema, rectal, Daily PRN, constipation, if no results 24 hours after bisacodyl, Starting on 11/26/19 at 205, Indications: constipationIndications:constipation nortriptyline (PAMELOR) capsule 10 mg 10 mg, oral, Nightly, First dose on Wed11/28/19 at 2100 ondansetron (ZOFRAN) injection 4 mg 4 mg, intravenous, Administer over 2 Minutes, Every 4 hours PRN, nausea, vomiting, Starting on Wed11/26/19 at 2057 Given 11/26/2019 10:39 PM CDT 4 mg ondansetron (ZOFRAN) tablet 4 mg 4 mg, oral, Every 4 hours PRN, nausea, vomiting, Starting on Wed11/26/19 at 2057 ondansetron ODT (ZOFRAN-ODT) disintegrating tablet 4 mg 4 mg, oral, Once, On Wed11/26/19 at 1125, For 1 dose Given 11/26/2019 11:25 AM CDT 4 mg pantoprazole (PROTONIX) injection 40 mg 40 mg, intravenous, Administer over 2 Minutes, Every 24 hours scheduled, First dose on Wed11/27/19 at 0545, For IV Push administration for adults- 40 mg vial: add 10 mL of sodium chloride 0.9% to achieve a final concentration of 4 mg/mL, Indications: Treatment of Non-Bleeding Gastric DisorderIndications:Treatment of Non-Bleeding Gastric Disorder Given 12/01/2019 8:34 AM CDT 40 mg Given 11/30/2019 8:29 AM CDT 40 mg Given 11/29/2019 3:16 AM CDT [address] (PROTONIX) extended release tablet 40 mg 40 mg, oral, Daily, First dose on 12/02/19 at 0900, This medication, pantoprazole, was changed from IV route to oral route per protocol. Do not crush, chew, cut, dissolve, open or otherwise manipulate tablet/capsule., Indications: Treatment of Non-Bleeding Gastric DisorderIndications:Treatment of Non-Bleeding Gastric Disorder potassium chloride 40 mEq in sodium chloride 0.9% 500 mL IVPB 40 mEq, intravenous, at 130 mL/hr, Administer over 4 Hours, Once, On Nurys 11/30/19 at 0700, For 1 dose, Potassium chloride 40 meq ivpb run X 1 dose per pharmacy electrolyte replacement protocol for potassium +=2.8 on 11/30/2019, Indications: hypokalemiaIndications:hypokalemi a 11/30/2019 6:14 AM CDT 40 mEq 130 mL/hr potassium phosphates 30 mmol in sodium chloride 0.9% 500 mL IVPB 30 mmol, intravenous, at 85 mL/hr, Administer over 6 Hours, Once, On Wed11/30/19 at 1200, For 1 dose, For PERIPHERAL line administration 11/30/2019 12:05 PM CDT 30 mmol 85 mL/hr potassium phosphates 30 mmol in sodium chloride 0.9% 500 mL IVPB 30 mmol, intravenous, at 85 mL/hr, Administer over 6 Hours, Once, On Wed11/30/19 at 1800, For 1 dose, For PERIPHERAL line administration 11/30/2019 6:20 PM CDT 30 mmol 85 mL/hr potassium phosphates 30 mmol in sodium chloride 0.9% 500 mL IVPB 30 mmol (rounded from 30.36 mmol = 0.4 mmol/kg ? 75.9 kg), intravenous, at 85 mL/hr, Administer over 6 Hours, Once, On Wed12/01/19 at 0800, For 1 dose, , X 1 dose per pharmacy electrolyte replacement protocol for Phos+=0.8 on 11/30, X 1 dose per pharmacy electrolyte replacement protocol for K+=3.1 on 11/3012/01/2019 8:35 AM CDT 30 mmol 85 mL/hr sodium chloride 0.9% bolus 1,000 mL 1,000 mL, intravenous, at 1,000 mL/hr, Administer over 1 Hours, Once, On Wed11/26/19 at 1126, For 1 dose 11/26/2019 11:33 AM CDT 1,000 mL 1000 mL/hr sodium chloride 0.9% bolus 1,000 mL 1,000 mL, intravenous, Once, On Wed11/29/19 at 0400, For 1 dose 11/29/2019 3:29 AM CDT 1,000 mL sodium chloride 0.9% bolus 500 mL 500 mL, intravenous, at 500 mL/hr, Administer over 1 Hours, Once, On Wed11/29/19 at 0400, For 1 dose 11/29/2019 3:16 AM CDT 500 mL 500 mL/hr sodium chloride 0.9% flush 0.5-20 mL 0.5-20 mL, intra-catheter, Every 8 hours scheduled, First dose on Wed11/27/19 at 0615, Flush volume based on line type and size. Given 12/01/2019 5:12 AM CDT 20 mL Given 11/30/2019 10:00 PM CDT 10 mL Given 11/30/2019 12:05 PM CDT 10 mL sodium chloride 0.9% flush 5-10 mL 5-10 mL, intra-catheter, Every 12 hours scheduled, First dose on Nurys 11/30/19 at 1400, Flush volume based on line type, size, and protocol. Given 11/30/2019 2:30 PM CDT 10 mL sodium chloride 0.9% flush 5-20 mL 5-20 mL, intra-catheter, As needed, line care, with each use, Starting on Nurys 11/30/19 at 1320, Flush volume based on line type, size, and protocol. sodium chloride 0.9% infusion 50 mL/hr, intravenous, Continuous, Starting on Wed11/26/19 at 1311 New Bag 11/29/2019 8:49 AM CDT 50 mL/hr 50 mL/hr New Bag 11/28/2019 6:43 PM CDT 50 mL/hr 50 mL/hr Rate/Dose Change 11/28/2019 5:30 PM CDT 50 mL/hr 50 mL/h r sodium chloride 0.9% with potassium chloride 20 mEq/L infusion (premix) 100 mL/hr, intravenous, Continuous, Starting on Wed12/01/19 at 0445 New Bag 12/01/2019 4:55 AM CDT 100 mL/hr 100 mL/hr documented in this encounter Active and Recently Administered Medications Times are shown in CDT. Scheduled Medication Order 11/29/2019 11/30/2019 12/01/2019 enoxaparin (LOVENOX) syringe 40 mg 40 mg, subcutaneous, Daily (for enoxaparin), First dose on Wed11/26/19 at 2100, Indications: Deep Vein Thrombosis Prevention 2118 (Not Given - Provider: Delia Welsh RN - Reason: Patient/family refused) 2054 (Not Given - Provider: Nallely Chiu RN - Reason: Patient/family refused) insulin glargine (LANTUS,BASAGLAR) pen injection 22 Units 22 Units (rounded from 21.93 Units = 0.3 Units/kg ? 73.1 kg), subcutaneous, Nightly, First dose on Wed11/30/19 at 2200, Discontinue insulin drip 2 hours after administration of dose. Do not mix with other insulins, Indications: Diabetes Mellitus 2200 (Given - Provider: Nallely Chiu, RN) insulin lispro (HumaLOG) pen injection 1-3 Units (CANCELED) 1-3 Units, subcutaneous, Every 6 hours scheduled, First dose on Wed11/27/19 at 0615, Blood Sugar Mid Dose - NPO patients 175 or less No Insulin 176 - 200 1 unit 201 - 250 2 units 251 - 299 3 units Greater than 299 Call MD for hyperglycemia management instructions Do NOT hold for NPO status., Indications: Diabetes Mellitus 611 (Given - Provider: Annette Aguirre RN) insulin lispro (HumaLOG) pen injection 1-4 Units 1-4 Units, subcutaneous, Nightly, First dose on Wed12/01/19 at 2100, Blood Sugar High Dose PM - PO patients 139 or less No insulin 140 - 175 1 unit 176 - 200 2 units 201 - 250 3 units 251 - 299 4 units Greater than 299 Call MD for hyperglycemia management instructions Do NOT hold for NPO status., Indications: Diabetes Mellitus insulin lispro (HumaLOG) pen injection 1-4 Units 1-4 Units, subcutaneous, Every 24 hours, First dose on Wed12/01/19 at 0200, Blood Sugar High Dose 02:00 - PO patients 139 or less No insulin 140 - 175 1 unit 176 - 200 2 units 201 - 250 3 units 251 - 299 4 units Greater than 299 Call MD for hyperglycemia management instructions Do NOT hold for NPO status., Indications: Diabetes Mellitus 0210 (Given - Provider: Nallely Chiu, MARY) insulin lispro (HumaLOG) pen injection 1-7 Units 1-7 Units, subcutaneous, 3 times daily with meals, First dose on Wed12/01/19 at 0800, Blood Sugar High Dose meal time - PO patients 139 or less No insulin 140 - 175 2 unit 176 - 200 3 unit 201 - 250 5 units 251 - 299 7 units Greater than 299 Call MD for hyperglycemia management instructions Do NOT hold for NPO status., Indications: Diabetes Mellitus 0836 (Given - Provider: Srinath Kong RN)1200 (Due) insulin lispro (HumaLOG) pen injection 3 Units (COMPLETED) 3 Units, subcutaneous, Once, On Wed11/29/19 at 0400, For 1 dose 0328 (Given - Provider: Annette Aguirre, RN) insulin lispro (HumaLOG) pen injection 5 Units 5 Units, subcutaneous, 3 times daily with meals, First dose on Wed12/01/19 at 0800, If BG 100 mg/dl or more, give with meals/tube feeds . If BG less than 100 mg/dl, give after meals/tube feeds. Hold pre-meal insulin if NPO, unable to eat, or BG less than 70 mg/dl. Administer pre-meal doses when patient's food tray arrives in room or after the meal in patients with poor meal intake. If patient is not eating the majority of their meal, call MD for an adjustment in patient's insulin dose., Indications: Diabetes Mellitus 0838 (Given - Provider: Srinath Kong RN)1200 (Due) LORazepam (ATIVAN) tablet 0.5 mg 0.5 mg, oral, Daily, First dose (after last modification) on Wed11/29/19 at 0900 0830 (Not Given - Provider: Lucas Leos RN - Reason: Other - Comment: pt lethargic) 0830 (Not Given - Provider: Мария Collins RN - Reason: Other - Comment: pt sleeping) 0839 (Not Given - Provider: Srinath Kong RN - Reason: Patient/family refused) magnesium sulfate 2 g/50 mL in water (premix) 2 g (COMPLETED) 2 g, intravenous, Administer over 60 Minutes, Once, On Nurys 11/30/19 at 1400, For 1 dose 1430 (New Bag - Provider: Мария Collins RN) metoclopramide (REGLAN) injection 10 mg 10 mg, intravenous, Administer over 1 Minutes, Every 8 hours scheduled, First dose (after last modification) on Wed11/27/19 at 1400 0317 (Given - Provider: Annette Aguirre, RN - Comment: pt agreeing to take)0613 (Hold - Provider: Annette Aguirre, RN - Reason: Contraindicated)1340 (Given - Provider: Lucas Leos, MARY)2121 (Given - Provider: Delia Welsh RN) 0521 (Given - Provider: Catarina Castro RN)1429 (Given - Provider: Мария Collins, MARY)2202 (Given - Provider: Nallely Chiu, MARY) 0505 (Given - Provider: Nallely Chiu, MARY) metoprolol (LOPRESSOR) injection 5 mg (COMPLETED) 5 mg, intravenous, Administer over 1 Minutes, Once, On Wed11/29/19 at 0915, For 1 dose 0849 (Given - Provider: Lucas Leos RN) metoprolol (LOPRESSOR) injection 5 mg (COMPLETED) 5 mg, intravenous, Administer over 1 Minutes, Once, On Wed11/29/19 at 1315, For 1 dose 1245 (Given - Provider: Lucas Leos RN) nortriptyline (PAMELOR) capsule 10 mg 10 mg, oral, Nightly, First dose on Wed11/28/19 at 2100 2119 (Not Given - Provider: Delia Welsh RN - Reason: Patient/family refused) 2218 (Not Given - Provider: Nallely Chiu RN - Reason: Patient/family refused) pantoprazole (PROTONIX) injection 40 mg (CANCELED) 40 mg, intravenous, Administer over 2 Minutes, Every 24 hours scheduled, First dose on Wed11/27/19 at 0545, For IV Push administration for adults- 40 mg vial: add 10 mL of sodium chloride 0.9% to achieve a final concentration of 4 mg/mL, Indications: Treatment of Non-Bleeding Gastric Disorder 0316 (Given - Provider: Annette Aguirre RN - Comment: pt agreeing to take)0832 (Not Given - Provider: Lucas Leos RN - Reason: Other) 0829 (Given - Provider: Мария Collins RN) 0834 (Given - Provider: Srinath Kong RN) pantoprazole DR (PROTONIX) extended release tablet 40 mg 40 mg, oral, Daily, First dose on Wed12/02/19 at 0900, This medication, pantoprazole, was changed from IV route to oral route per protocol. Do not crush, chew, cut, dissolve, open or otherwise manipulate tablet/capsule., Indications: Treatment of Non-Bleeding Gastric Disorder potassium chloride 40 mEq in sodium chloride 0.9% 500 mL IVPB (COMPLETED) 40 mEq, intravenous, at 130 mL/hr, Administer over 4 Hours, Once, On Nurys 11/30/19 at 0700, For 1 dose, Potassium chloride 40 meq ivpb run X 1 dose per pharmacy electrolyte replacement protocol for potassium +=2.8 on 11/30/2019, Indications: hypokalemia 0614 (New Bag - Provider: Catarina Castro RN) potassium phosphates 30 mmol in sodium chloride 0.9% 500 mL IVPB (COMPLETED) 30 mmol, intravenous, at 85 mL/hr, Administer over 6 Hours, Once, On Nurys 11/30/19 at 1200, For 1 dose, For PERIPHERAL line administration 1205 (New Bag - Provider: Мария Collins RN) potassium phosphates 30 mmol in sodium chloride 0.9% 500 mL IVPB (COMPLETED) 30 mmol, intravenous, at 85 mL/hr, Administer over 6 Hours, Once, On Nurys 11/30/19 at 1800, For 1 dose, For PERIPHERAL line administration 1820 (New Bag - Provider: Мария Collins RN) potassium phosphates 30 mmol in sodium chloride 0.9% 500 mL IVPB 30 mmol (rounded from 30.36 mmol = 0.4 mmol/kg ? 75.9 kg), intravenous, at 85 mL/hr, Administer over 6 Hours, Once, On Wed12/01/19 at 0800, For 1 dose, , X 1 dose per pharmacy electrolyte replacement protocol for Phos+=0.8 on 11/30, X 1 dose per pharmacy electrolyte replacement protocol for K+=3.1 on 11/30 0835 (New Bag - Provider: Srinath Kong RN) sodium chloride 0.9% bolus 1,000 mL (COMPLETED) 1,000 mL, intravenous, Once, On Wed11/29/19 at 0400, For 1 dose 0329 (New Bag - Provider: Annette Aguirre RN) sodium chloride 0.9% bolus 500 mL (COMPLETED) 500 mL, intravenous, at 500 mL/hr, Administer over 1 Hours, Once, On Wed11/29/19 at 0400, For 1 dose 0316 (New Bag - Provider: Annette Aguirre, MARY) sodium chloride 0.9% flush 0.5-20 mL (CANCELED) 0.5-20 mL, intra-catheter, Every 8 hours scheduled, First dose on Wed11/27/19 at 0615, Flush volume based on line type and size. 0409 (Not Given - Provider: Annette Aguirre, MARY - Reason: IV Infusing)1340 (Not Given - Provider: Lucas Leos RN - Reason: Order parameters not met)2119 (Not Given - Provider: Delia Welsh RN - Reason: IV Infusing) 0517 (Not Given - Provider: Catarina Castro RN - Reason: IV Infusing)1205 (Given - Provider: Мария Collins RN)2200 (Given - Provider: Nallely Chiu, MARY) 0512 (Given - Provider: Nallely Chiu RN) sodium chloride 0.9% flush 5-10 mL 5-10 mL, intra-catheter, Every 12 hours scheduled, First dose on Wed11/30/19 at 1400, Flush volume based on line type, size, and protocol. 1430 (Given - Provider: Мария Collins RN)2055 (Not Given - Provider: Nallely Chiu RN - Reason: IV Infusing) 0839 (Not Given - Provider: Srinath Kong RN - Reason: Order parameters not met) Continuous Medication Order 11/29/2019 11/30/2019 12/01/2019 dextrose 5% and sodium chloride 0.45% infusion (premix) (CANCELED) 150 mL/hr, intravenous, Continuous, Starting on Wed11/29/19 at 1945 1921 (New Bag - Provider: Christina Munoz RN)1999 (Rate/Dose Verify - Provider: Delia Welsh, MARY) 0005 (Rate/Dose Verify - Provider: Catarina Castro, MARY)0119 (New Bag - Provider: Catarina Castro, MARY)0305 (Rate/Dose Verify - Provider: Catarina Castro, MARY)0724 (New Bag - Provider: Catarina Castro RN) dextrose 5% and sodium chloride 0.45% with potassium chloride 20 mEq/L infusion (premix) (CANCELED) 100 mL/hr, intravenous, Continuous, Starting on Wed11/30/19 at 0900 0829 (Rate/Dose Change - Provider: Мария Collins, RN)1050 (New Bag - Provider: Мария Collins RN)1947 (New Bag - Provider: Nallely Chiu RN) dextrose 5% infusion (CANCELED) 100 mL/hr, intravenous, Continuous, Starting on Wed11/29/19 at 0815, Start once BS <250 0829 (New Bag - Provider: Lucas Leos RN)1821 (New Bag - Provider: Christina Munoz, MARY)192 (Stopped - Provider: Christina Munoz, MARY) insulin regular (HumuLIN R, NovoLIN R) 100 Units in sodium chloride 0.9% 100 mL (1 Units/mL) infusion (CANCELED) 0-30 Units/hr (0-30 mL/hr), 1 units/mL, intravenous, Titrated, Starting on Wed11/29/19 at 0815, Until Wed12/01/19 at 0648, Indications: Hyperglycemia, Desired Range (mg/dL): 130-180 general patients, Multiplier: 0.01, Adjust rate per GlucoStabilizer program for dka order When new IV tubing is used, completely prime the tubing. Once primed, waste an additional 20 ml of insulin infusion using the IV pump prior to connecting to patient., Routine 0828 (New Bag - Provider: Lucas Leos RN)0932 (Rate/Dose Change - Provider: Lucas Leos RN)1035 (Rate/Dose Change - Provider: Lucas Leos RN)1139 (Rate/Dose Change - Provider: Lucas Leos RN)1242 (Rate/Dose Change - Provider: Lucas Leos RN)1337 (Rate/Dose Change - Provider: Lucas Leos RN)1441 (Rate/Dose Change - Provider: Lucas Leos RN)1543 (Rate/Dose Change - Provider: Lucas Leos RN)1642 (Rate/Dose Change - Provider: Christina Munoz, RN)1753 (Rate/Dose Change - Provider: Christina Munoz, RN)1845 (Rate/Dose Change - Provider: Christina Munoz, RN)1954 (Rate/Dose Change - Provider: Catarina Castro RN)2048 (Rate/Dose Change - Provider: Delia Welsh RN)2154 (Rate/Dose Change - Provider: Catarina Castro RN)2248 (Rate/Dose Change - Provider: Delia Welsh, MARY) 0004 (Rate/Dose Change - Provider: Catarina Castro RN - Comment: per glucostabilizer,fsbs 105)0115 (Rate/Dose Change - Provider: Catarina Castro RN)0305 (Rate/Dose Change - Provider: Catarina Castro RN - Comment: fsbs 148)0410 (Rate/Dose Change - Provider: Catarina Castro RN - Comment: fsbs 112)0516 (Rate/Dose Change - Provider: Catarina Castro RN - Comment: fsbs 105)0613 (Rate/Dose Change - Provider: Catarina Castro RN - Comment: fsbs 128)0722 (Rate/Dose Change - Provider: Catarina Castro RN)0835 (Rate/Dose Change - Provider: Мария Collins RN)0953 (Paused - Provider: Мария Collins RN)1055 (Restarted - Provider: Мария Collins RN)1200 (Rate/Dose Change - Provider: Мария Collins RN)1320 (Rate/Dose Change - Provider: Мария Collins RN)1425 (Rate/Dose Change - Provider: Мария Collins RN)1530 (Paused - Provider: Мария Collins RN)1605 (Restarted - Provider: Мария Collins RN)1735 (Rate/Dose Change - Provider: Мария Collins RN)1835 (Rate/Dose Change - Provider: Мария Collins RN)194 (Rate/Dose Change - Provider: Nallely Chiu, MARY)2050 (Rate/Dose Change - Provider: Nallely Chiu RN)2157 (Rate/Dose Change - Provider: Nallely Chiu, RN)230 (Stopped - Provider: Nallely Chiu RN) sodium chloride 0.9% infusion (CANCELED) 50 mL/hr, intravenous, Continuous, Starting on Wed11/26/19 at 1311 0849 (New Bag - Provider: Lucas Leos RN)1922 (Stopped - Provider: Christina Munoz RN) sodium chloride 0.9% with potassium chloride 20 mEq/L infusion (premix) (CANCELED) 100 mL/hr, intravenous, Continuous, Starting on Wed12/01/19 at 0445 0455 (New Bag - Provider: Nallely Chiu RN)0840 (Stopped - Provider: Srinath Kong RN) PRN Medication Order 11/29/2019 11/30/2019 12/01/2019 acetaminophen (TYLENOL) tablet 650 mg 650 mg, oral, Every 4 hours PRN, 1st line for pain, Starting on Wed11/26/19 at 1838, Indications: Pain bisacodyl EC (DULCOLAX EC) tablet 10 mg 10 mg, oral, Daily PRN, constipation, If no results 24 hours after milk of magnesia, Starting on Wed11/26/19 at 2058, Do not crush, chew, cut, dissolve, open or otherwise manipulate tablet/capsule. carboxymethylcellulose (REFRESH TEARS) 0.5 % ophthalmic liquid 1 drop 1 drop, left eye, 4 times daily PRN, dry eyes, eye irritation, Starting on Wed12/01/19 at 0103 dextrose (D10W) 10% bolus 1-500 mL 1-500 mL, intravenous, at 2-2,000 mL/hr, Administer over 15-30 Minutes, As needed, blood glucose less than 70 mg/dL, Starting on Wed11/29/19 at 0741, Dose as determined by GlucoStabilizer dka order. 25 gm = 250 mL 50 gm = 500 mL, Indications: Hypoglyemia dextrose (D10W) 10% bolus 250 mL(Linked Group 1) 250 mL, intravenous, at 1,000 mL/hr, Administer over 15 Minutes, Every 15 min PRN, blood glucose less than 70 mg/dL and UNABLE to swallow/take PO glucose/juice., Starting on Wed11/26/19 at 2220, After treatment for hypoglycemia, recheck BG followed by treatment every 15 minutes until the BG is greater than 100 mg/dL. Then check BG 1 hour post treatment. If BG is less than 100 mg/dL, repeat Q15 minute BG checks and treatment. Call MD for each episode of hypoglycemia., Indications: hypoglycemic disorder 0953 (New Bag - Provider: Мария Collins, RN) dextrose gel in packet 15 g(Linked Group 1) 15 g, oral, Every 15 min PRN, low blood sugar, blood glucose less than 70 mg/dL, Starting on 11/26/19 at 2220, If patient is alert and able to [...] each episode of hypoglycemia., Indications: hypoglycemic disorder 952 (See Alternative - Provider: Мария Collins, MARY) glucagon injection 1 mg 1 mg, intramuscular, Administer over 1 Minutes, Every 30 min PRN, low blood sugar, blood glucose less than 70 mg/dL AND no IV access AND unable to take PO glucose/jiuce., Starting on Wed11/26/19 at 2220, After Glucagon is administered, position patient on [...] MD for each episode of hypoglycemia., Indications: Hypoglycemia magnesium hydroxide (MILK OF MAGNESIA) 80 mg/mL (33.3 mg/mL as elemental magnesium) oral suspension 30 mL 30 mL, oral, Daily PRN, constipation, Starting on Wed11/26/19 at 2058 metoprolol (LOPRESSOR) injection 5 mg 5 mg, intravenous, Administer over 1 Minutes, Every 6 hours PRN, other, for HR >120; but hold if sbp <100, Starting on Wed11/29/19 at 1800 1816 (Given - Provider: Christina Munoz, MARY) mineral oil (FLEET MINERAL OIL) enema 1 enema 1 enema, rectal, Daily PRN, constipation, if no results 24 hours after bisacodyl, Starting on Wed11/26/19 at 2057, Indications: constipation ondansetron (ZOFRAN) injection 4 mg 4 mg, intravenous, Administer over 2 Minutes, Every 4 hours PRN, nausea, vomiting, Starting on Wed11/26/19 at 2057 ondansetron (ZOFRAN) tablet 4 mg 4 mg, oral, Every 4 hours PRN, nausea, vomiting, Starting on Wed11/26/19 at 2057 sodium chloride 0.9% flush 5-20 mL 5-20 mL, intra-catheter, As needed, line care, with each use, Starting on Wed11/30/19 at 1320, Flush volume based on line type, size, and protocol. Linked Groups Order Group 1: dextrose gel in packet 15 gJump to med 15 g, oral, Every 15 min PRN, low blood sugar, blood glucose less than 70 mg/dL, Starting on Wed11/26/19 at 2220, If patient is alert and able to [...] UNABLE to swallow/take PO glucose/juice., Starting on Wed11/26/19 at 2220, After treatment for hypoglycemia, recheck BG followed [...] Count Last Ordered Date First Ordered Date carboxymethylcellulose (REFR ESH TEARS) 0.5 % ophthalmic liquid 1 drop 1 12/01/2019 insulin lispro (HumaLOG) pen injection 1-4 Units 1 12/01/[address] (PROTONIX) e xtended release tablet 40 mg 1 12/01/2019 insulin lispro (HumaLOG) pen injection 1-3 Units 1 11/30/2019 insulin lispro (HumaLOG) pen injection 1-5 Units 2 11/30/2019 11/26/2019 sodium chloride 0.9% flush 5-20 mL 1 2019 dextrose (D10W) 10% bolus 1-500 mL 1 2019 insulin regular bolus from bag 1-10 Units 1 11/29/2019 LORazepam (ATIVAN) tablet 0.5 mg 2 11/28/19 20 11/27/2019 nortriptyline (PAMELOR) capsule 10 mg 1 sodium chloride 0.9% flush 0.5-20 mL 1 11/01 acetaminophen (TYLENOL) tablet 650 mg 1 bisacodyl EC (DULCOLAX EC) tablet 10 mg 1 0 11/26/2019 dextrose gel in packet 15 g 1 11/26/2019 enoxaparin (LOVENOX) syringe 40 mg 1 2019 glucagon injection 1 mg 1 11/26/2019 insulin lispro (HumaLOG) pen injection 4 Units 1 11/26/2019 magnesium hydroxide (MILK OF MAGNESIA) 80 mg/mL (33.3 mg/mL as elemental magnesium) oral suspension 30 mL 1 11/26/2019 mineral oil (FLEET MINERAL O IL) enema 1 enema 1 11/26/2019 ondansetron (ZOFRAN) injection 4 mg 1 11/25 ondansetron (ZOFRAN) injection 8 mg 1 11/25 ondansetron (ZOFRAN) tablet 4 mg 1 11/26/19 20 oxyCODONE (ROXICODONE) tablet 5 mg 1 2019 Lab Orders Without Results Count Last Ordered D ate First Ordered Date POCT GLUCOSE DEVICE 18 11/30/2019 11/27/19 20 Nursing Count Last Ordered Date First Orde red Date WEIGH PATIENT 1 11/27/2019 CARDIO RESPIRATORY MONITORING 1 11/26/2019 CONTINUOUS PULSE OXIMETRY 1 11/26/2019 IV Count Last Ordered Date First Orde red Date INSERT PERIPHERAL IV 1 11/26/2019 Transfer Count Last Ordered Date First Orde red Date TRANSFER PATIENT 1 11/29/2019 CORE MEASURES Count Last Ordered Date First Ord ered Date REASON FOR NO VTE PROPHYLAXIS AT ADMISSION 1 11/27/2019 ADT Patient Update Count Last Ordered Date Firs t Ordered Date ED IP DECISION TO ADMIT 1 11/26/2019 documented in this encounter Additional Health Concerns Infection Onset Date Last Indicated Resolved Time COVID: Suspected 11/26/2019 11/26/2019 11/26/2019 3:27 PM CDT Respiratory Infection (IRENE), contact + droplet Comment:Automatically added due to negative COVID-19 result. 11/26/2019 11/26/2019 11/28/2019 8:0 0 AM CDT documented as of this encounter Care Teams Puttying And Calking Supervisor Relationship Specialty Start Date End Date Carrie Joseph PA [address] [place] [address] PCP - General 10/04/18 07/19/21 Warren Phillips MD [address] [place] [address] Consulting Physician Gastroenterology 02/16/19 documented as of this encounter
--- OUTSIDE RECORDS SUMMARY | 2024-05-10 18:39 | XMS_ITS | Encounter Summary ---
Author Organization Formerly [facility] Address [address] [place] [address] Care Team Providers Care Ladler Name Role Phone Carrie Joseph Primary Care Provider + Warren Phillips MD Unavailable [phone] Reason for Referral * Diagnostic Imaging (Routine) - Closed Specialty Diagnoses / Procedures Referred By Contac t Referred To Contact Diagnoses Supervision of high-risk , third trimester Procedures US Ob Limited Jerome Martinez MD Phone: tel: fax: [facility] (All Locations) Referral ID Status Reason Start Date Expiration Date Visits Re quested Visits Authorized [id number] Closed 02/29/2020 03/30/2021 1 1 MAN Reason for Visit * Diagnostic Imaging (Routine) - Closed Specialty Diagnoses / Procedures Referred By Contac t Referred To Contact Diagnoses Supervision of high-risk , third trimester Procedures US Ob Limited Jerome Martinez MD Phone: tel: fax: [facility] (All Locations) Referral ID Status Reason Start Date Expiration Date Visits Re quested Visits Authorized [id number] Closed 02/29/2020 03/30/2021 1 1 Encounter Details Date Type Department Care Team (Latest Contact Info) Description 03/07/2020 8:00 AM RAMPMAN - 03/07/2020 11:59 PM RAMPMAN Hospital Encounter [facility] - Ultrasound [address] [facility] [place] [address] Jerome Martinez MD [address] [facility] [address] [place], [place] [id number] Supervision of high-risk , third trimester Discharge Disposition: Discharge to home or [...] on file Legal Sex Female 3:13 AM RAMPMAN Gender Identity Not on file Sexual Orientation [...] LIMITED Schedule Routine, Read Routine (OP Routine) 03/07/2020 8:16 AM RAMPMAN Supervision of high-risk , third trimester documented in this encounter Results * US Ob Limited (03/07/2020 8:16 AM RAMPMAN) Anatomical Region Laterality Modality Abdomen N/A Ultrasound 03/07/2020 8:17 AM RAMPMAN Narrative 03/07/2020 9:02 AM RAMPMAN There are no Discrete Measurement Components for this test result - Please see .pdf Procedure Note Pascual Cardona MD - 03/07/2020 There are no Discrete Measurement Components for this test result - Pleasesee .pdf us Jerome Martinez MD IMG OB US PROCEDUR ES Final Result documented in this encounter Visit Diagnoses Diagnosis Supervision of high-risk , third trimester documented in this encounter Care Teams Ladler Relationship Specialty Start Date End Date Carrie Joseph PA [address] [place] [address] PCP - General 10/04/18 07/19/21 Warren Phillips MD [address] [place] [address] Consulting Physician Gastroenterology 02/16/19 documented as of this encounter
--- OUTSIDE RECORDS SUMMARY | 2024-05-10 18:39 | XMS_ITS | Encounter Summary ---
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 Dom Grant for US order. documented in this encounter Plan of Treatment Not on file documented as of this encounter Visit Diagnoses Not on filedocumented in this encounter Care Teams Ortho/Prosthetic Aide Relationship Specialty Start Date End Date Carrie Joseph PA [address] [place] [address] PCP - General 10/04/18 07/19/21 Warren Phillips MD [address] [place] [address] Consulting Physician Gastroenterology 02/16/19 documented as of this encounter
--- OUTSIDE RECORDS SUMMARY | 2024-05-10 18:39 | XMS_ITS | Encounter Summary ---
Author Organization [facility] Healthcare Address [address] [place] [address] Care Team Providers Care Court Commissioner Name Role Phone Carrie Joseph Primary Care Provider + Warren Phillips MD Unavailable [phone] Reason for Referral * Diagnostic Imaging (Routine) - Closed Specialty Diagnoses / Procedures Referred By Contnela t Referred To Contact Diagnoses Supervision of high-risk , unspecified trimester Procedures US Ob Limited Yumiko Madden MD [address] [facility] [address] [place] [address] Phone: tel: fax: [facility] (All Locations) Referral ID Status Reason Start Date Expiration Date Visits Re quested Visits Authorized [id number] Closed 03/07/2020 04/06/2021 1 1 GROWER Reason for Visit * Reason Comments High Risk Gestation Encounter Details Date Type Department Care Team (Late st Contact Info) Description 03/07/2020 10:00 AM WORM GROWER Initial Obstetrics and Gynecology Clinic [address] [place] [address] 3rd Floor [address] [place] [address] Susan Lynn MD [address] [facility] [phone] [place] [address] (work) Social History Tobacco Use Types Packs/Day Years [...] on file Legal Sex Female 3:13 AM WORM GROWER Gender Identity Not on file Sexual Orientation Not on file documented as of this encounter Last Filed Vital Signs Vital Sign Reading Time Taken Comments Blood Pressure 116/67 03/07/2020 9:17 AM WORM GROWER Pulse - - Temperature - - Respiratory Rate - - Oxygen Saturation - - Inhaled Oxygen Concentration - - Weight 73.9 kg (163 lb) 03/07/2020 9:17 AM WORM GROWER Height - - Body Mass Index 27.98 11/26/2019 6:39 PM CDT documented in this encounter Patient Instructions * Patient Instructions* Yumiko Madden MD - 03/07/2020 10:00 AM WORM GROWER Please bring in your blood sugar log to your next appointment in 1 week. GROWER documented in this encounter Progress Notes * Yumiko Madden MD - 03/07/2020 10:00 AM CST Initial [facility] Visit Date of Visit: 03/07/2020 12:36 PM Author: Yumiko Madden MD Referring Provider: No ref. provider found Karina Fuchs is a 24 y.o. at 5w3d by 1T US who desires establishment of care forher . Her LMP was 01/03/20, sure. She reports regular periods for the past 2 months, but prior to that irregular periods for the past 8 months. Her formal US today showed a GS with no YS or FP, no evidence of ectopic . Today she reports feeling well. She has no complaints. Denies CP/SOB/nausea/vomiting/fevers/chills.She is accompanied with her mother. Her is currently complicated by: #T1DM - She has a history of poorly controlled diabetes, and has been hospitalized multiple times for DKA both during and outside of . Also requiring ICU admissions, but has never required intubation. She follows with an nuclear security officer. Her current regimen is humalog 1u:8carbs TID before meals, Basaglar 14units at night, and a correction factor of 1:50. #Gastroparesis? - documented dx but patient denies that she has this, does not take any medications. Denies nausea/vomiting today. Patient Active Problem List Diagnosis ??? Depression ??? Diabetic gastroparesis (CMS/HCC) ??? Noncompliance with medication regimen ??? Supervision of high-risk ??? T1DM in Morning sickness? no movement? N/A Leakage of fluid? no Vaginal bleeding? no Contractions? no FOB name: Arik Link Planned ? yes Desired ? yes Taking ? no - has some at home Taking other meds not yet cleared by OB? no Cats in household? yes, patient does not clean the litter box Job with chemical exposure? no Xrays in ? no Dating: Working Critiera: 1T US Patient's last menstrual period was 04/10/2019 (approximate). =>, AARTI: 10/09/2020 US Date: 03/07/20, Gest Age 5w3d => AARTI 11/04/2020 Obstetric History: OB History Para Term AB Living 3 1 1 1 1 SAB TAB Ectopic Multiple Live Births 1 1 # Outcome Date GA Lbr Chuck/2nd Weight Sex Delivery Anes PTL Lv 3 Current 2 SAB 11/10/18 10w0d D&C 1 Term 10/10/16 3.204 kg (7 lb 1 oz) F CS-Unspec PRADEEP Complications: Intolerance, Cephalopelvic Disproportion Obstetric Comments G1 - Hospitalized for DKA x 3 during Genetic History: [-] Mother's Age > 34 years [-] Sickle Cell Disease or Trait () [-] Thalasemia (Rwandan, Croatian, Medit or ; MCV <80) [-] Tiburcio Sachs Disease (Gnosticist, Cajun, Khmer [place]) [-] Down's Syndrome [-] Neural Tube Defects (Meningomyelocele, Spina Bifida or Anencephaly) [-] Other Developmental Delay [-] Cystic Fibrosis [-] Poulan's Chorea [-] Muscular Dystrophy [-] Hemophilia [-] Other Heritable condition Medical History: Past Medical History: Diagnosis Date ??? Depression ??? Diabetes mellitus (CMS/HCC) T1DM ??? HX OTHER MEDICAL 2011 Diabetes mellitus, type 1 ??? Miscarriage No Known Allergies Surgical History: Past Surgical History: Procedure Laterality Date ??? SECTION, CLASSIC 2016 ??? TONSILLECTOMY Bilateral 2002 Family History: Family History Problem Relation Age of Onset ??? No Known Problems Mother ??? Autism Brother Social History: Social History Social History Narrative ??? Not on file Physical Exam: Vitals: BP 116/67 Wt 163 lb (73.9 kg) LMP 04/10/2019 (Approximate) BMI 27.98 kg/m?? General: Well appearing, pleasant female in NAD Heart: regular rate and rhythm Lungs: normal respiratory effort Abdomen: soft, non-tender, non-distended Extremities: Warm and well perfused Pelvic: deferred Labs: No results found for: ABO, RH, HIV, HIVPCR, RPR, HEPBSAG, GBS Assessment and Plan: Karina Fuchs is a 24 y.o. at 5w3d by 1T US with complicated by: T1DM. Problem List Endocrine/Metabolic T1DM in - Primary Overview - History DKA (multiple admission during and [...] rates of SAB, anomalies (10-15% risk given A1Cof 7.7%), macrosomia, shoulder dystocia, IUGR, polyhydramnios, labor, delivery, preeclampsia, need for operative delivery, hypoglycemia/RDS/electrolyte abnormalities, and stillbirth. Preconception A1c is elevated, placing her at increased risk for malformations (15%),so we discussed the plan for detailed anatomy [...] due to insurance. Will work on obtaining thesefor the patient. Patient would like to continue co-management with HROB and Endocrinology. Pt to call [facility] and see if they are comfortable treating [...] An insulin drip will likely be required duringlabor [] A1c likely to be rechecked via nuclear security officer but if not, will check qtrimester Other Supervision of high-risk Overview First Trimester: [x] Dating Criteria: 1T US [...] 1hr gtt at 24-28wks: [] Flu Shot (Jan-Apr) [] Tdap (27-36wks) [] Rhogam (if Rh neg): 3rd Trimester: [] CBC/HIV/RPR/T&S [] GBS at 36 weeks [] GC/CT/trich Counseling: [] Method of delivery: [] Method of contraception: [] Method of feeding: Relevant Orders POCT urinalysis dipstick (Completed) POCT glucose (Completed) US Ob Limited Reviewed what to expect from visits and schedule, SAB precautions, where to call, diet andexercise with expected weight gain, medications, and smoking/EtOH. Next US: 2 weeks to confirm viability RTC in 1 week with CDP. The patient was seen and discussed with Dr. Carvajal and Dr. Barrera. Yumiko Madden MD CRYSTAL EVALUATOR, R4 Fellow Attestation I have seen and examined the patient and agree with the above documented assessment and plan. Briefly, the patient is a at 5w3d who presents for establishment of care in [facility]. Her courseis complicated by type I DM. Counseled on Type I DM and . Please see problem list for patient regimen. RTC in 1 week for BG review, 2 weeks for viability US. Que Carvajal MD Maternal- Medicine Fellow, PGY-5 Cosigned by Suni Barrera MD at 03/08/2020 9:46 AM WORM GROWER GROWER GROWER GROWER Associated attestation - Suni Barrera MD - 03/08/2020 9:46 AM WORM GROWER I have seen and examined the patient. I agree with the findings and plan of care as documented in the resident/fellow's note. documented in this encounter Plan of Treatment Not on file documented as of this encounter Procedures Procedure Name Priority Date/Time Associated Diagnosis Comments POCT GLUCOSE Routine 03/07/2020 9:25 AM WORM GROWER Supervision of high-risk , unspecified trimester POCT URINALYSIS DIPSTICK Routine 03/07/2020 9:25 AM WORM GROWER Supervision of high-risk , unspecified trimester POCT HEMOGLOBIN A1C Routine 03/07/2020 9 :13 AM WORM GROWER POCT GLUCOSE DEVICE Routine 03/07/2020 9 :10 AM WORM GROWER documented in this encounter Results * US Ob Limited (03/26/2020 2:30 PM WORM GROWER) Anatomical Region Laterality Modality Abdomen N/A Ultrasound 03/26/2020 2:43 PM WORM GROWER Narrative 03/26/2020 3:36 PM WORM GROWER There are no Discrete Measurement Components for this test result - Please see .pdf Procedure Note Taylor Stevenson MD - 03/26/2020 There are no Discrete Measurement Components for this test result - Pleasesee .pdf us Yumiko Madden MD IMG OB US PROCEDUR ES Final Result * POCT glucose (03/07/2020 9:25 AM WORM GROWER) Glucose Blood, POC 185 mg/dL Blood specimen (specimen) 03/07/2020 9:25 AM WORM GROWER us Jerome Martinez MD POINT OF CARE TEST ORDERABLES Final Result * (ABNORMAL) POCT urinalysis dipstick (03/07/2020 9:25 AM WORM GROWER) Glucose, ur, POC 1000.(A) Negative mg/dL Ketones, ur, POC Large(A) Negative Protein, ur, POC Trace(A) Negative Nitrite, ur, POC Negative Negative Lot Number . Urine 03/07/2020 9:25 AM WORM GROWER Jerome Martinez MD POINT OF CARE TEST ORDERABLES Final Result * (ABNORMAL) POCT hemoglobin A1c (03/07/2020 9:13 AM WORM GROWER) Hgb A1C, POC 7.8(H) 4.0 - 6.0 % [facility] Est Average Gluc POC 177 mg/dL [facility] Comment: The ADA recommends reporting an estimated Average Glucose (eAG) with all Hemoglobin A1c results using the equation derived from a study of 507 normal and diabetic adults. ??Minority populations were underrepresented and children were not included. ?? (Diabetes Care 31:3003-6817, 2008). ??The eAG is not equivalent to a fasting glucose. Blood specimen (specimen) 03/07/2020 9:13 AM WORM GROWER 03/07/2020 9:13 AM WORM GROWER Susanmesha Lynn MD POINT OF CARE TEST ORDERABLES Final Result Performing Organization Address [facility] de Phone Number [facility] [place] [address] * POCT glucose (03/07/2020 9:10 AM WORM GROWER) Glucose, POC 185 70 - 199 mg/dL [facility] Blood specimen (specimen) 03/07/2020 9:10 AM WORM GROWER 03/07/2020 9:10 AM WORM GROWER Susan Lynn MD LAB POCT ORDER RULA - DEVICE Final Result [facility] Department [place] [address] documented in this encounter Visit Diagnoses Diagnosis T1DM in - Primary Supervision of high-risk , unspecified trimester Supervision of high-risk , unspecified trimester documented in this encounter Care Teams Court Commissioner Relationship Specialty Start Date End Date Carrie Joseph PA [address] [place] [address] PCP - General 10/04/18 07/19/21 Warren Phillips MD [address] [place] [address] Consulting Physician Gastroenterology 02/16/19 documented as of this encounter
--- OUTSIDE RECORDS SUMMARY | 2024-05-10 18:39 | XMS_ITS | Encounter Summary ---
Author Organization [facility] Healthcare Address [address] [place] [address] Care Team Providers Care Store Associate Name Role Phone Carrie Joseph Primary Care Provider + Warren Phillips MD Unavailable [phone] Reason for Visit * Reason Comments Gestational Diabetes Encounter Details Date Type Department Care Team (Late st Contact Info) Description 03/07/2020 12:30 PM AMBULATORY SERVICE REPRESENTATIVE Clinical Support Obstetrics and Gynecology Clinic [address] [facility] Health 3rd Floor [address] [place] [address] Susan Lynn MD [address] [facility] [phone] [place] [address] Type 1 diabetes mellitus affecting , antepartum Social History Tobacco Use Types Packs/Day Years [...] on file Legal Sex Female 3:13 AM AMBULATORY SERVICE REPRESENTATIVE Gender Identity Not on file Sexual Orientation Not on file documented as of this encounter Progress Notes * Peyton Gutierrez V, RD - 03/07/2020 12:30 PM CST Diabetes/Nutrition Counseling Date: 03/07/20 Assessment Weight: 163 lbs Diet history: Pt stated may have oatmeal, blueberries and milk for breakfast, a sandwich and veggies for lunch, and chicken, corn and mashed potatoes for dinner. Stated snacks on raw veggies. Pt stated takes 14 units Lantus and 1:8 ratio of Humalog to carbs. Intervention Patient attended a class on basic self management of gestational diabetes. Class session focused on basic cognitive and management skills. Goals of class session are: State why she wants to control blood glucose. State when to take her diabetes medication and/or how to draw /administer insulin injection(s). State when to eat meals and snacks and what foods to limit/avoid, and, with assistance, make an appropriate meal plan. Standard meal plan with 3 meals and 3 snacks as follows: Breakfast: 15-30 g carbs Snack (2.5-3.5 hours post first meal): 15 to 30 gm carb Lunch (2-3 hours after morning snack: 45 to 60 g carb Afternoon snack (2.5 to 3 hours post lunch): 15 to 30 g carb Evening meal (2-3 hours after mid-afternoon snack): 45 to 60 g carb Bedtime snack: 15 to 30 g carb Describe how to use a food label and a fast food guide to determine how to fit foods into meal plan. Describe benefits of recording food intake when BG levels are out of target. State food safety recommendations and limits on fish that may contain large amounts of heavy metals. State benefits of breast feeding, healthy eating habits after delivery. Show how to use the glucose meter and state when to check blood glucose levels. State target glucose levels. State actions to take if with symptoms of hypoglycemia or if below 60 mg/dl. State actions to take if with symptoms of DKA or with blood glucose above 250 mg/dl. State who and when to call for assistance. State importance of need to have diabetes screening 6 to 8 weeks post delivery and yearly thereafter. State the 6 basic expectations Check and record glucose upon awakening and 1 hour after each meal Eat 3 meals and 3 snacks, and follow meal spacing/carb load and consistency recommendations: no juices or sweets. Take medications correctly Once on medications: check glucose if feel low. Correctly treat glucose below 60 mg. Call clinic if with questions or problems. Return 6 to 8 weeks for post delivery check up. Patient was given the following: Glucose meter kit and prescription for supplies (needs MD signature). Pt was given One Touch Verio because stated had lost old meter and was paying out of pocket for Relion strips. Meal plan, handout on food safety and fish safety. Pamphlet on Gestational diabetes 2 blood glucose log sheets with target goals for fasting and 1 hour after meals. Phone number and name of salesperson sheet music for questions and problems. Individualized follow up assessment/education will be provided upon referral by MD or nurse coordinator for problems related to glucose and/or weight gain pattern. LATORY SERVICE REPRESENTATIVE documented in this encounter Plan of Treatment Not on file documented as of this encounter Visit Diagnoses Diagnosis Type 1 diabetes mellitus affecting , antepartum documented in this encounter Care Teams Store Associate Relationship Specialty Start Date End Date Carrie Joseph PA [address] [place] [address] PCP - General 10/04/18 07/19/21 Warren Phillips MD [address] [place] [address] Consulting Physician Gastroenterology 02/16/19 documented as of this encounter
--- OUTSIDE RECORDS SUMMARY | 2024-05-10 18:39 | XMS_ITS | Encounter Summary ---
Author Organization [facility] Healthcare Address [address] [place] [address] Care Team Providers Care Bus Info Consultant Name Role Phone Carrie Joseph Primary Care Provider + Warren Phillips MD Unavailable [phone] Encounter Details Date Type Department Care Team (Late st Contact Info) Description 03/04/2020 Telephone Obstetrics and Gynecology Clinic [address] [facility] Health 3rd Floor [address] [place] [address] Nayeli Woody RN Social History [...] on file Legal Sex Female 3:13 AM HANDLE MAKER Gender Identity Not on file Sexual Orientation Not on file documented as of this encounter Miscellaneous Notes * Telephone Encounter - Nayeli Woody RN - 03/04/2020 10:24 AM HANDLE MAKER Call placed to pt re: US and CDP appt, voicemail left. LE MAKER documented in this encounter Plan of Treatment Not on file documented as of this encounter Visit Diagnoses Not on filedocumented in this encounter Care Teams Bus Info Consultant Relationship Specialty Start Date End Date Carrie Joseph PA [address] [place] [address] PCP - General 10/04/18 07/19/21 Warren Phillips MD [address] [place] [address] Consulting Physician Gastroenterology 02/16/19 documented as of this encounter
--- OUTSIDE RECORDS SUMMARY | 2024-05-10 18:39 | XMS_ITS | Encounter Summary ---
Author Organization [facility] Healthcare Address [address] [place] [address] Care Team Providers Care Products Mechanical Design Engineer Name Role Phone Carrie Joseph Primary Care Provider + Warren Phillips MD Unavailable [phone] Encounter Details Date Type Department Care Team (Late st Contact Info) Description 02/29/2020 Telephone Obstetrics and Gynecology Clinic [address] [facility] 3rd Floor [address] [place] [address] Shaneka Ford Social History Tobacco Use Types Packs/Day Years [...] on file Legal Sex Female 3:13 AM TOBACCO DIPPER Gender Identity Not on file Sexual Orientation Not on file documented as of this encounter Miscellaneous Notes * Telephone Encounter - Shaneka Ford - 02/29/2020 12:57 PM CDT Patient is calling to schedule a IOB she stated she's a type 1 diabetic.Patient # [phone] documented in this encounter Plan of Treatment Not on file documented as of this encounter Visit Diagnoses Not on filedocumented in this encounter Care Teams Products Mechanical Design Engineer Relationship Specialty Start Date End Date Carrie Joseph PA [address] [place] [address] PCP - General 10/04/18 07/19/21 Warren Phillips MD [address] [place] [address] Consulting Physician Gastroenterology 02/16/19 documented as of this encounter
--- OUTSIDE RECORDS SUMMARY | 2024-05-10 18:39 | XMS_ITS | Encounter Summary ---
Author Organization [facility] Healthcare Address [address] [place] [address] Care Team Providers Care Solo Truck Driver Name Role Phone Carrie Joseph Primary Care Provider + Warren Phillips MD Unavailable [phone] Reason for Referral * Diagnostic Imaging (Routine) - Closed Specialty Diagnoses / Procedures Referred By Contnela t Referred To Contact Diagnoses Supervision of high-risk , third trimester Procedures US Ob Limited Jerome Martinez MD Phone: tel: fax: [facility] (All Locations) Referral ID Status Reason Start Date Expiration Date Visits Re quested Visits Authorized [id number] Closed 02/29/2020 03/30/2021 1 1 Encounter Details Date Type Department Care Team (Late st Contact Info) Description 02/29/2020 Orders Only [facility] [address] [place] [address] Jerome Martinez MD [address] [facility] [place] [address] [place] [address] Supervision of high-risk , third trimester (Primary Dx) Social History Tobacco Use Types [...] on file Legal Sex Female 3:13 AM [employer] Gender Identity Not on file Sexual Orientation Not on file documented as of this encounter Plan of Treatment Not on file documented as of this encounter Results * US Ob Limited (03/07/2020 8:16 AM SE[employer] SLINGER) Anatomical Region Laterality Modality Abdomen N/A Ultrasound 03/07/2020 8:17 AM [employer]ER Narrative 03/07/2020 9:02 AM [employer] There are no Discrete Measurement Components for this test result - Please see .pdf Procedure Note Pascual Cardona MD - 03/07/2020 There are no Discrete Measurement Components for this test result - Pleasesee .pdf us Jerome Martinez MD IMG OB US PROCEDUR ES Final Result documented in this encounter Visit Diagnoses Diagnosis Supervision of high-risk , third trimester- Primary Supervision of high-risk , third trimester documented in this encounter Care Teams Solo Truck Driver Relationship Specialty Start Date End Date Carrie Joseph PA [address] [place] [address] PCP - General 10/04/18 07/19/21 Warren Phillips MD [address] [place] [place] [address] Consulting Physician Gastroenterology 02/16/19 documented as of this encounter
--- OUTSIDE RECORDS SUMMARY | 2024-05-10 18:40 | XMS_ITS | Encounter Summary ---
Author Organization [facility] Healthcare Address [address] [place] [address] Care Team Providers Care Air Hammer Operator Name Role Phone Carrie Joseph Primary Care Provider + Warren Phillips MD Unavailable [phone] Reason for Visit * Reason Comments Nausea Encounter Details Date Type Department Care Team (Latest Contact Info) Description 04/25/2019 9:03 PM DEPARTMENT CHAIRPERSON - 04/26/2019 5:14 PM DEPARTMENT CHAIRPERSON Hospital Encounter [facility] [address] [place] [address] Tavo Fall MD [address] [facility] [address] [place] [address] Gio Sewell MD [address] [place] [address] Jhonatan Rey MD [address] [facility] [address] Diabetic ketoacidosis without coma associated with type 1 diabetes mellitus (CMS/HCC) (Primary Dx) Discharge Disposition: Left Against [...] on file Legal Sex Female 3:13 AM DEPARTMENT CHAIRPERSON Gender Identity Not on file Sexual Orientation Not on file documented as of this encounter Last Filed Vital Signs Vital Sign Reading Time Taken Comments Blood Pressure 145/88 04/26/2019 2:00 PM DEPARTMENT CHAIRPERSON Pulse 111 04/26/2019 2:00 PM DEPARTMENT CHAIRPERSON Temperature 36.6 ??C (97.8 ??F) 04/26/2019 4:00 PM CS T Respiratory Rate 17 04/26/2019 2:00 PM DEPARTMENT CHAIRPERSON Oxygen Saturation 100% 04/26/2019 2:00 PM DEPARTMENT CHAIRPERSON Inhaled Oxygen Concentration - - Weight 59.7 kg (131 lb 9.8 oz) 04/26/2019 12:15 AM DEPARTMENT CHAIRPERSON Height 154.9 cm (5' 1 ) 04/26/2019 12:15 AM DEPARTMENT CHAIRPERSON Body Mass Index 24.87 04/26/2019 12:15 AM DEPARTMENT CHAIRPERSON documented in this encounter Discharge Diagnoses Diagnosis Type 1 diabetes mellitus with ketoacidosis without coma (HCC) - TYPE 1 DIABETES MELLITUS WITH KETOACIDOSIS WITHOUT COMA Major depressive disorder, single episode, unspecified - MAJOR DEPRESSIVE DISORDER, SINGLE EPISODE, UNSPECIFIED 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 (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) - UTILITIES SERVICE INVESTIGATOR (CURRENT) USE OF INSULIN Dehydration - DEHYDRATION Patient's other noncompliance with medication regimen - PATIENT'S OTHER NONCOMPLIANCE WITH MEDICATION REGIMEN 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 (HCC) - TYPE 1 DIABETES MELLITUS WITH DIABETIC AUTONOMIC (POLY)NEUROPATHY Gastroparesis - GASTROPARESIS Procedure and treatment not carried out because of patient's decision for other reasons - PROCEDURE AND TREATMENT NOT CARRIED OUT BECAUSE OF PATIENT'S DECISION FOR OTHER REASONS Other ferry terminal agent (current) drug therapy - OTHER [facility] (CURRENT) DRUG THERAPY documented in this encounter Medications at Time of Discharge insulin lispro (HumaLOG) 100 unit/mL injection Inject under the skin 3 (three) times a day before meals Uses per sliding scale 1 unit per every 7-8 grams of carb max of 50 units per day ADMELOG U-100 INSULIN LISPRO SUBQ Inject 5 Units under the skin 3 (three) times a day before meals 0 insulin glargine (LANTUS,BASAGLAR) 100 unit/mL (3 mL) insulin pen Inject 14 Units under the skin daily 1 metoclopramide (REGLAN) solution 5 mg/5 mL Take 10 mg by mouth 4 (four) times a day before meals and nightly Patient states no longer taking for past several days 0 norethindrone-e.est radiol-iron (JUNE FE 05/22) 1 mg-20 mcg (21)/75 mg (7) per tabletIndications:P regnancy Contraception Take 1 tablet by mouth daily [address] (PROTONIX) 40 mg EC tabletIndications:u lcerative esophagitis Take 1 tablet (40 mg total) by mouth 2 (two) times a day 60 tablet 3 02/16/2019 0 documented as of this encounter Discharge Disposition Disposition Code Departure Means Destination Left Against Medical Advice documented in this encounter Progress Notes * Jhonatan Rey MD - 04/26/2019 9:23 AM CST General Medicine Daily Progress SUBJECTIVE Chief complaint of N/V. Interval History: DKA OBJECTIVE Vitals: 24hr Min/Max: Temp Min: 36.6 ??C (97.9 ??F) Max: 37.4 ??C (99.3 ??F) Pulse Min: 101 Max: 142 BP Min: 95/37 Max: 178/94 Resp Min: 10 Max: 29 SpO2 Min: 92 % Max: 100 % Most Recent : Vitals: 04/26/19 0800 BP: 100/60 Pulse: 112 Resp: 21 Temp: 36.6 ??C (97.9 ??F) SpO2: 100% I/O last 2 completed shifts: In: 3351 [I.V.:2351; IV Piggyback:1000] Out: 1150 [Urine:1150] I/O this shift: In: 3039.4 [I.V.:3039.4] Out: - Physical Exam: Eyes: EOMI, ZORAIDA, sclare non icteric Neck: supple, no nuchal ridigity, no gross carotid bruits appreciated Pharynx: No gross oral lesion, tongue midline, mucosa moist Lungs CTA Heart: [id number] Abd: +BS, Non Tender, Non distended, No gross hepatomegaly Lower Ext: No gross edema Neuro: No new gross deficits appreciated Musculoskeletal: no gross joint erythema, edema, tenderness Skin: No skin rash or lesions Lab/Current Medication Review: Recent Results (from the past 24 hour(s)) POCT glucose Collection Time: 04/25/19 9:37 AM Result Value Ref Range Glucose, POC 95 71 - 98 mg/dL POCT glucose Collection Time: 04/25/19 10:33 AM Result Value Ref Range Glucose, POC 99 (H) 71 - 98 mg/dL POCT glucose Collection Time: 04/25/19 11:21 AM Result Value Ref Range Glucose, POC 101 (H) 71 - 98 mg/dL POCT glucose Collection Time: 04/25/19 12:14 PM Result Value Ref Range Glucose, POC 114 (H) 71 - 98 mg/dL Urinalysis reflex to microscopic and culture Urine Collection Time: 04/25/19 12:56 PM Result Value Ref Range Color, ur Yellow Yellow Clarity, ur Clear Clear Specific gravity, ur 1.003 (L) 1.010 - 1.025 pH, urine 6.5 Protein, ur ql Negative Negative Glucose, ur ql Negative Negative Ketones, ur 1+ (A) Negative Bilirubin, ur Negative Negative Blood, ur Negative Negative Urobilinogen, ur 0.2 mg/dL Nitrite, ur Negative Negative Leukocyte esterase, ur Negative Negative UA reflex comment Reflex conditions for microscopic UA and culture not met. Drug Screen, Urine L and D with Reflex Confirmation Collection Time: 04/25/19 12:56 PM Result Value Ref Range Amphetamine, ur [...] Not Detected CutOff 25 ng/mL Urine Creatinine 26 mg/dL Comprehensive metabolic panel Collection Time: 04/25/19 9:29 PM Result Value Ref Range Sodium 132 (L) 135 - 145 mmol/L Potassium, pl 4.2 3.3 - 4.9 mmol/L Chloride 98 97 - 110 mmol/L CO2 14 (L) 22 - 32 mmol/L Anion gap 21 (H) 2 - 15 mmol/L BUN 11 8 - 25 mg/dL Creatinine 0.43 (L) 0.60 - 1.10 mg/dL Glucose 351 (H) 70 - 199 mg/dL Calcium 9.4 8.5 - 10.3 mg/dL Bilirubin, total 0.8 0.1 - 1.2 mg/dL Protein, pl 7.7 6.5 - 8.5 g/dL Albumin 4.5 3.5 - 5.0 g/dL Alk phos 88 40 - 130 Units/L ALT 8 7 - 45 Units/L AST 14 10 - 45 Units/L CBC with auto differential Collection Time: 04/25/19 9:29 PM Result Value Ref Range WBC 13.7 (H) 3.8 - 9.9 K/cumm Hgb 14.1 11.9 - 15.5 g/dL Hct 41.1 35.6 - 45.5 % Plt 384 150 - 400 K/cumm MPV 9.2 9.1 - 12.3 fL RBC 4.80 3.90 - 5.20 M/cumm MCV 85.6 81.3 - 96.4 fL MCH 29.4 27.1 - 33.3 pg MCHC 34.3 32.3 - 35.7 g/dL RDW CV 13.9 11.1 - 14.9 % RDW SD 43.2 35.7 - 48.1 fL NRBC abs 0.00 0.00 - 0.01 K/cumm Differential, auto Collection Time: 04/25/19 9:29 PM Result Value Ref Range Neutrophil abs 12.0 (H) 1.7 - 6.5 K/cumm Imm gran abs 0.1 0.0 - 0.1 K/cumm Lymphocyte abs 1.0 0.8 - 3.3 K/cumm Monocyte abs 0.6 0.2 - 0.8 K/cumm Eosinophil abs 0.0 0.0 - 0.5 K/cumm Basophil abs 0.0 0.0 - 0.1 K/cumm Neutrophil pct 87.8 % Imm gran pct 0.4 % Lymphocyte pct 7.4 % Monocyte pct 4.2 % Eosinophil pct 0.1 % Basophil pct 0.1 % eGFR Collection Time: 04/25/19 9:29 PM Result Value Ref Range GFR 144 mL/min/1.73 m2 Magnesium Collection Time: 04/25/19 9:29 PM Result Value Ref Range Magnesium 1.8 1.6 - 2.4 mg/dL Phosphorus Collection Time: 04/25/19 9:29 PM Result Value Ref Range Phosphorus, pl 3.2 2.3 - 4.5 mg/dL POCT glucose Collection Time: 04/25/19 9:31 PM Result Value Ref Range Glucose, POC 311 (Critical) 71 - 98 mg/dL POCT glucose Collection Time: 04/25/19 10:26 PM Result Value Ref Range Glucose, POC 320 (Critical) 71 - 98 mg/dL POCT glucose Collection Time: 04/25/19 11:27 PM Result Value Ref Range Glucose, POC 217 (H) 71 - 98 mg/dL POCT glucose Collection Time: 04/26/19 12:22 AM Result Value Ref Range Glucose, POC 180 (H) 71 - 98 mg/dL POCT glucose Collection Time: 04/26/19 1:32 AM Result Value Ref Range Glucose, POC 228 (H) 71 - 98 mg/dL POCT glucose Collection Time: 04/26/19 2:32 AM Result Value Ref Range Glucose, POC 238 (H) 71 - 98 mg/dL POCT glucose Collection Time: 04/26/19 3:14 AM Result Value Ref Range Glucose, POC 263 (H) 71 - 98 mg/dL POCT glucose Collection Time: 04/26/19 4:15 AM Result Value Ref Range Glucose, POC 274 (H) 71 - 98 mg/dL Phosphorus Collection Time: 04/26/19 5:13 AM Result Value Ref Range Phosphorus, pl 2.9 2.3 - 4.5 mg/dL Magnesium Collection Time: 04/26/19 5:13 AM Result Value Ref Range Magnesium 1.7 1.6 - 2.4 mg/dL CBC with auto differential Collection Time: 04/26/19 5:13 AM Result Value Ref Range WBC 11.9 (H) 3.8 - 9.9 K/cumm Hgb 12.1 11.9 - 15.5 g/dL Hct 35.9 35.6 - 45.5 % Plt 358 150 - 400 K/cumm MPV 9.2 9.1 - 12.3 fL RBC 4.13 3.90 - 5.20 M/cumm MCV 86.9 81.3 - 96.4 fL MCH 29.3 27.1 - 33.3 pg MCHC 33.7 32.3 - 35.7 g/dL RDW CV 14.1 11.1 - 14.9 % RDW SD 44.8 35.7 - 48.1 fL NRBC abs 0.00 0.00 - 0.01 K/cumm Comprehensive metabolic panel Collection Time: 04/26/19 5:13 AM Result Value Ref Range Sodium 132 (L) 135 - 145 mmol/L Potassium, pl 4.4 3.3 - 4.9 mmol/L Chloride 103 97 - 110 mmol/L CO2 12 (L) 22 - 32 mmol/L Anion gap 17 (H) 2 - 15 mmol/L BUN 10 8 - 25 mg/dL Creatinine 0.38 (L) 0.60 - 1.10 mg/dL Glucose 305 (H) 70 - 199 mg/dL Calcium 8.2 (L) 8.5 - 10.3 mg/dL Bilirubin, total 0.6 0.1 - 1.2 mg/dL Protein, pl 6.5 6.5 - 8.5 g/dL Albumin 3.7 3.5 - 5.0 g/dL Alk phos 76 40 - 130 Units/L ALT 6 (L) 7 - 45 Units/L AST 10 10 - 45 Units/L Differential, auto Collection Time: 04/26/19 5:13 AM Result Value Ref Range Neutrophil abs 10.2 (H) 1.7 - 6.5 K/cumm Imm gran abs 0.1 0.0 - 0.1 K/cumm Lymphocyte abs 1.0 0.8 - 3.3 K/cumm Monocyte abs 0.7 0.2 - 0.8 K/cumm Eosinophil abs 0.0 0.0 - 0.5 K/cumm Basophil abs 0.0 0.0 - 0.1 K/cumm Neutrophil pct 85.4 % Imm gran pct 0.5 % Lymphocyte pct 8.3 % Monocyte pct 5.6 % Eosinophil pct 0.0 % Basophil pct 0.2 % eGFR Collection Time: 04/26/19 5:13 AM Result Value Ref Range GFR 150 mL/min/1.73 m2 POCT glucose Collection Time: 04/26/19 5:21 AM Result Value Ref Range Glucose, POC 272 (H) 71 - 98 mg/dL POCT glucose Collection Time: 04/26/19 6:28 AM Result Value Ref Range Glucose, POC 217 (H) 71 - 98 mg/dL POCT glucose Collection Time: 04/26/19 7:32 AM Result Value Ref Range Glucose, POC 155 (H) 71 - 98 mg/dL Basic metabolic panel Collection Time: 04/26/19 8:19 AM Result Value Ref Range Sodium 131 (L) 135 - 145 mmol/L Potassium, pl 4.1 3.3 - 4.9 mmol/L Chloride 105 97 - 110 mmol/L CO2 16 (L) 22 - 32 mmol/L Anion gap 10 2 - 15 mmol/L BUN 9 8 - 25 mg/dL Creatinine 0.28 (L) 0.60 - 1.10 mg/dL Glucose 134 70 - 199 mg/dL Calcium 8.6 8.5 - 10.3 mg/dL Magnesium Collection Time: 04/26/19 8:19 AM Result Value Ref Range Magnesium 1.7 1.6 - 2.4 mg/dL Phosphorus Collection Time: 04/26/19 8:19 AM Result Value Ref Range Phosphorus, pl 2.3 2.3 - 4.5 mg/dL eGFR Collection Time: 04/26/19 8:19 AM Result Value Ref Range GFR 166 mL/min/1.73 m2 POCT glucose Collection Time: 04/26/19 8:31 AM Result Value Ref Range Glucose, POC 118 (H) 71 - 98 mg/dL Current Facility-Administered Medications Medication Dose Route Frequency Provider Last Rate Last Dose ??? acetaminophen (TYLENOL) tablet 650 mg 650 mg oral Q4H PRN Tavo Fall MD ??? dextrose (D10W) 10% bolus 1-500 mL 1-500 mL intravenous PRN Tavo Fall MD ??? dextrose gel in packet 15 g 15 g oral Q15 Min PRN Jhonatan Rey MD Or ??? dextrose (D10W) 10% bolus 250 mL 250 mL intravenous Q15 Min PRN Jhonatan Rey MD ??? dextrose 5% infusion 100 mL/hr intravenous Continuous Gio Sewell MD 100 mL/hr at 053 100 mL/hr at 04/26/19 0053 ??? glucagon injection 1 mg 1 mg intramuscular Q30 Min PRN Jhonatan Rey MD ??? insulin glargine (LANTUS,BASAGLAR) pen injection 24 Units 24 Units subcutaneous QAM Jhonatan Rey MD ??? insulin lispro (HumaLOG) pen injection 1-4 Units 1-4 Units subcutaneous Nightly Jhonatan Rey MD ??? insulin lispro (HumaLOG) pen injection 1-7 Units 1-7 Units subcutaneous TID with meals Jhonatan Rey MD ??? insulin lispro (HumaLOG) pen injection 6 Units 6 Units subcutaneous TID with meals Jhonatan Rey MD ??? insulin regular (HumuLIN R, NovoLIN R) 100 Units in sodium chloride 0.9% 100 mL (1 Units/mL) infusion 0-30 Units/hr intravenous Titrated Tavo Fall MD 1.7 mL/hr at 04/26/19 0832 1.7 Units/hr at 04/26/19 0832 ??? insulin regular bolus from bag 1-10 Units 1-10 Units intravenous PRN Tavo Fall MD ??? magnesium sulfate 2 g/50 mL in water (premix) 2 g 2 g intravenous Once Gio Sewell MD ? ? metoclopramide (REGLAN) 1 mg/mL oral solution 10 mg 10 mg oral QID (AC & HS) Gio Sewell MD ??? ondansetron ODT (ZOFRAN-ODT) disintegrating tablet 4 mg 4 mg oral Q6H PRN Tavo Fall MD Or ??? ondansetron (ZOFRAN) injection 4 mg 4 mg intravenous Q6H PRN Tavo Fall MD ??? oxyCODONE (ROXICODONE) tablet 5 mg 5 mg oral Q4H PRN Tavo L. Fall, MD ??? potassium chloride 40 mEq in sodium chloride 0.9% 500 mL IVPB 40 mEq intravenous Q4H PRN Gio Sewell MD ??? sodium chloride 0.45% infusion 150 mL/hr intravenous Continuous Gio Sewell MD 100 mL/hr at 04/26/19 0053 100 mL/hr at 04/26/19 0053 A/P: 1. DKA: resolved on DKA protocol. Stopped INsulin drip and start SQ regimen. Sent for Drug screen. Replace electrolytes, start oral diet. Transfer to medical floor ?? 2. Sore throat: Flu virus negative. Will take a look. She is on azithromycin, no leukocytosis or fever. [place] sent, for strep A and resp panel. ?? 3. HX of diabetic gastroparesis: resumed home meds. ?? Summary and daily updates: 04/26: Came back with DKA. Changes her insulin regimen and increased lantus to 24 units daily to avoid DKA. AGAP closed, started SQ regimen and diet this morning, Drug screen, CXR and Urinalysis are all clear. The patient is not answering why she does that. Will consult psych to help Principal Problem: Diabetic ketoacidosis without coma associated with type 1 diabetes mellitus (CMS/HCC) Active Problems: Dehydration Diabetic gastroparesis (CMS/HCC) Metabolic acidosis Noncompliance with medication regimen Jhonatan Rey MD 04/26/2019 9:23 AM RTMENT CHAIRPERSON * Haley Harvey [facility] - 04/26/2019 6:46 AM CST Electrolyte monitoring performed by pharmacy on labs from 04/26/2019 05:13 (date & time), Na+=132 K+=4.4 Mg+=1.7 Phos=2.9 No replacement ordered. Pharmacy will continue to follow daily. RTMENT CHAIRPERSON * Vadim Diana [facility] - 04/26/2019 12:45 AM CST An order to initiate electrolyte repletion by pharmacy has been received from IV or PO repletion will be ordered [...] daily x3 days, then every other day. RTMENT CHAIRPERSON documented in this encounter H&P Notes * Gio Sewell MD - 04/26/2019 12:20 AM CST [facility] Adult Hospitalist Service History and Physical Patient Name: Karina Fuchs Patient : 1995 Age/Sex: 23 y.o. female Room/Bed: [id number] Admission Date/Time: 04/25/2019 9:03 PM Date: 04/26/2019 Time: 12:20 AM Primary Care Physician: KEANU Conway PCP Office Location: [address] [place] [address] [address] TYSON [address] [place] [address] PCP SUBJECTIVE: Patient is a 23 y.o. female with a PMHx of type 1 diabetes, recurrent DKA, depression presents to the ED with a chief complaint of nausea and vomiting. HPI Patient was discharged home earlier yesterday after was admitted for another episode of DKA. Patient states that went home and in the afternoon started having nausea and persistent vomiting which prompted her to come back to the ED for further evaluation. On further workup in the ED patient noted to be in DKA again. She was started on IV fluids and insulin drip per DKA protocol and referred for readmission to the ICU for further management. Patient states that she did not fill eating, so did not take her insulin. Apparently she hadn't been checking her blood glucose level as well. No other complaints at this time Review of Systems: Constitutional Denies: weight loss, weight gain, fever, chills, night sweats, complains of fatigue Eyes Denies: change in vision, double vision, eye pain, eye discharge, icterus ENT Denies: change in hearing, ear pain, ear discharge, nose bleed, nasal congestion, sore throat Respiratory Denies: SOB, wheezing, cough, sputum, hemoptysis CV Denies: chest pain, palpitations, syncope, edema, dyspnea GI Denies: abdominal pain, complains of decreased appetite, nausea, vomiting, denies change in bowel habitus, diarrhea, constipation, melena, BRBPR Denies: dysuria, frequency, hematuria, nocturia, urgency Metabolic Denies: cold intolerance, heat intolerance, polyphagia, polydipsia Neurologic Denies: headache, dizziness, seizure, change in mental status, focal weakness, focal numbness Musculoskeletal Denies: myalgia, joint pain, joint redness, joint swelling, extremity pain Hematologic Denies: bleeding, bruising, hematoma, lymphadenopathy, icterus Past Medical History: Past Medical History: Diagnosis Date ??? Depression ??? Diabetes mellitus (CMS/HCC) ??? HX OTHER MEDICAL 2011 Diabetes mellitus, type 1 ??? Miscarriage Past Surgical History: Past Surgical History: Procedure Laterality Date ??? ABDOMINAL SURGERY ??? SECTION, CLASSIC 2017 ??? TONSILLECTOMY Bilateral 2003 Family History: Family History Problem Relation Age [...] ??? ADMELOG U-100 INSULIN LISPRO SUBQ Inject 6 Units under the skin 3 (three) times a day before meals ??? insulin glargine (LANTUS,BASAGLAR) 100 unit/mL (3 mL) insulin pen Inject 10 Units under the skin daily 03/23/2019 at Unknown time ??? insulin lispro (HumaLOG) 100 unit/mL injection Inject under the skin 3 (three) times a day before meals Uses per sliding scale 1 unit per every 8 grams of carb 03/23/2019 at Unknown time ??? metoclopramide (REGLAN) solution 5 mg/5 mL Take 10 mg by mouth 4 (four) times a day before meals and nightly ??? norethindrone-e.estradiol-iron (05/22) 1 mg-20 mcg (21)/75 mg (7) per tablet Take 1 tablet by mouth daily ??? pantoprazole DR (PROTONIX) 40 mg EC tablet Take 1 tablet (40 mg total) by mouth 2 (two) times aday 60 tablet 3 03/23/2019 at Unknown time Objective: Vitals: Patient Vitals for the past 24 hrs: Patient Vitals for the past 24 hrs: BP Temp Temp src Pulse Resp SpO2 Height Weight 04/25/19 2300 130/91 -- -- 118 23 99 % -- -- 04/25/19 2230 (!) 145/111 -- -- 121 15 100 % -- -- 04/25/19 2215 -- -- -- 117 24 98 % -- -- 04/25/192122 132/87 36.9 ??C (98.5 ??F) Oral 124 20 100 % 152.4 cm (5') 59.8 kg (131 lb 13.4 oz) 04/25/192120 -- -- -- -- -- 100 % -- -- Physical Exam: General: Awake, alert, oriented x4, sick looking. Eyes: EOMI, ZORAIDA, sclare non icteric Neck: supple, trachea midline, thyroid not enlarged, no gross carotid bruits appreciated Pharynx: No gross oral lesion, tongue midline, mucosa dry Lungs CTA Heart: [id number] Abd: +BS, Non Tender, Non distended, No gross hepatomegaly Lower Ext: No gross edema Neuro: Cranial nerves II-XII grossly intact. Moves all extremities equally, no gross sensory deficits Musculoskeletal: no gross joint erythema, edema, tenderness Genitourinary: No suprapubic or CVA tenderness Skin: No skin rashes, warm and dry to palpation Laboratory Results: Recent Results (from the past 24 hour(s)) POCT glucose Collection Time: 04/25/19 12:38 AM Result Value Ref Range Glucose, POC 162 (H) 71 - 98 mg/dL Beta-hydroxybutyrate Collection Time: 04/25/19 12:50 AM Result Value Ref Range Beta-Hydroxybutyrate 0.4 <=0.5 mmol/L Lactate Collection Time: 04/25/19 12:50 AM Result Value Ref Range Lactate 1.3 0.7 - 2.0 mmol/L POCT glucose Collection Time: 04/25/19 1:39 AM Result Value Ref Range Glucose, POC 164 (H) 71 - 98 mg/dL POCT glucose Collection Time: 04/25/19 2:37 AM Result Value Ref Range Glucose, POC 111 (H) 71 - 98 mg/dL POCT glucose Collection Time: 04/25/19 3:47 AM Result Value Ref Range Glucose, POC 125 (H) 71 - 98 mg/dL POCT glucose Collection Time: 04/25/19 4:30 AM Result Value Ref Range Glucose, POC 117 (H) 71 - 98 mg/dL CBC with auto differential Collection Time: 04/25/19 4:31 AM Result Value Ref Range WBC 11.2 (H) 3.8 - 9.9 K/cumm Hgb 14.0 11.9 - 15.5 g/dL Hct 41.1 35.6 - 45.5 % Plt 398 150 - 400 K/cumm MPV 9.2 9.1 - 12.3 fL RBC 4.82 3.90 - 5.20 M/cumm MCV 85.3 81.3 - 96.4 fL MCH 29.0 27.1 - 33.3 pg MCHC 34.1 32.3 - 35.7 g/dL RDW CV 13.6 11.1 - 14.9 % RDW SD 42.3 35.7 - 48.1 fL NRBC abs 0.00 0.00 - 0.01 K/cumm Basic metabolic panel Collection Time: 04/25/19 4:31 AM Result Value Ref Range Sodium 132 (L) 135 - 145 mmol/L Potassium, pl 3.6 3.3 - 4.9 mmol/L Chloride 100 97 - 110 mmol/L CO2 18 (L) 22 - 32 mmol/L Anion gap 15 2 - 15 mmol/L BUN 12 8 - 25 mg/dL Creatinine 0.33 (L) 0.60 - 1.10 mg/dL Glucose 133 70 - 199 mg/dL Calcium 9.0 8.5 - 10.3 mg/dL Magnesium Collection Time: 04/25/19 4:31 AM Result Value Ref Range Magnesium 2.0 1.6 - 2.4 mg/dL Phosphorus Collection Time: 04/25/19 4:31 AM Result Value Ref Range Phosphorus, pl 2.1 (L) 2.3 - 4.5 mg/dL Differential, auto Collection Time: 04/25/19 4:31 AM Result Value Ref Range Neutrophil abs 9.9 (H) 1.7 - 6.5 K/cumm Imm gran abs 0.0 0.0 - 0.1 K/cumm Lymphocyte abs 1.1 0.8 - 3.3 K/cumm Monocyte abs 0.2 0.2 - 0.8 K/cumm Eosinophil abs 0.0 0.0 - 0.5 K/cumm Basophil abs 0.0 0.0 - 0.1 K/cumm Neutrophil pct 87.9 % Imm gran pct 0.4 % Lymphocyte pct 9.5 % Monocyte pct 2.0 % Eosinophil pct 0.0 % Basophil pct 0.2 % eGFR Collection Time: 04/25/19 4:31 AM Result Value Ref Range GFR 158 mL/min/1.73 m2 POCT glucose Collection Time: 04/25/19 5:47 AM Result Value Ref Range Glucose, POC 209 (H) 71 - 98 mg/dL POCT glucose Collection Time: 04/25/19 6:28 AM Result Value Ref Range Glucose, POC 154 (H) 71 - 98 mg/dL POCT glucose Collection Time: 04/25/19 7:31 AM Result Value Ref Range Glucose, POC 122 (H) 71 - 98 mg/dL Basic metabolic panel Collection Time: 04/25/19 8:09 AM Result Value Ref Range Sodium 134 (L) 135 - 145 mmol/L Potassium, pl 3.6 3.3 - 4.9 mmol/L Chloride 99 97 - 110 mmol/L CO2 22 22 - 32 mmol/L Anion gap 13 2 - 15 mmol/L BUN 9 8 - 25 mg/dL Creatinine 0.36 (L) 0.60 - 1.10 mg/dL Glucose 120 70 - 199 mg/dL Calcium 9.8 8.5 - 10.3 mg/dL Magnesium Collection Time: 04/25/19 8:09 AM Result Value Ref Range Magnesium 2.0 1.6 - 2.4 mg/dL Phosphorus Collection Time: 04/25/19 8:09 AM Result Value Ref Range Phosphorus, pl 3.2 2.3 - 4.5 mg/dL eGFR Collection Time: 04/25/19 8:09 AM Result Value Ref Range GFR 153 mL/min/1.73 m2 CRP (acute phase) Collection Time: 04/25/19 8:09 AM Result Value Ref Range C-RP 2.0 <=10.0 mg/L POCT glucose Collection Time: 04/25/19 8:37 AM Result Value Ref Range Glucose, POC 90 71 - 98 mg/dL POCT glucose Collection Time: 04/25/19 9:37 AM Result Value Ref Range Glucose, POC 95 71 - 98 mg/dL POCT glucose Collection Time: 04/25/19 10:33 AM Result Value Ref Range Glucose, POC 99 (H) 71 - 98 mg/dL POCT glucose Collection Time: 04/25/19 11:21 AM Result Value Ref Range Glucose, POC 101 (H) 71 - 98 mg/dL POCT glucose Collection Time: 04/25/19 12:14 PM Result Value Ref Range Glucose, POC 114 (H) 71 - 98 mg/dL Urinalysis reflex to microscopic and culture Urine Collection Time: 04/25/19 12:56 PM Result Value Ref Range Color, ur Yellow Yellow Clarity, ur Clear Clear Specific gravity, ur 1.003 (L) 1.010 - 1.025 pH, urine 6.5 Protein, ur ql Negative Negative Glucose, ur ql Negative Negative Ketones, ur 1+ (A) Negative Bilirubin, ur Negative Negative Blood, ur Negative Negative Urobilinogen, ur 0.2 mg/dL Nitrite, ur Negative Negative Leukocyte esterase, ur Negative Negative UA reflex comment Reflex conditions for microscopic UA and culture not met. Drug Screen, Urine L and D with Reflex Confirmation Collection Time: 04/25/19 12:56 PM Result Value Ref Range Amphetamine, ur [...] Not Detected CutOff 25 ng/mL Urine Creatinine 26 mg/dL Comprehensive metabolic panel Collection Time: 04/25/19 9:29 PM Result Value Ref Range Sodium 132 (L) 135 - 145 mmol/L Potassium, pl 4.2 3.3 - 4.9 mmol/L Chloride 98 97 - 110 mmol/L CO2 14 (L) 22 - 32 mmol/L Anion gap 21 (H) 2 - 15 mmol/L BUN 11 8 - 25 mg/dL Creatinine 0.43 (L) 0.60 - 1.10 mg/dL Glucose 351 (H) 70 - 199 mg/dL Calcium 9.4 8.5 - 10.3 mg/dL Bilirubin, total 0.8 0.1 - 1.2 mg/dL Protein, pl 7.7 6.5 - 8.5 g/dL Albumin 4.5 3.5 - 5.0 g/dL Alk phos 88 40 - 130 Units/L ALT 8 7 - 45 Units/L AST 14 10 - 45 Units/L CBC with auto differential Collection Time: 04/25/19 9:29 PM Result Value Ref Range WBC 13.7 (H) 3.8 - 9.9 K/cumm Hgb 14.1 11.9 - 15.5 g/dL Hct 41.1 35.6 - 45.5 % Plt 384 150 - 400 K/cumm MPV 9.2 9.1 - 12.3 fL RBC 4.80 3.90 - 5.20 M/cumm MCV 85.6 81.3 - 96.4 fL MCH 29.4 27.1 - 33.3 pg MCHC 34.3 32.3 - 35.7 g/dL RDW CV 13.9 11.1 - 14.9 % RDW SD 43.2 35.7 - 48.1 fL NRBC abs 0.00 0.00 - 0.01 K/cumm Differential, auto Collection Time: 04/25/19 9:29 PM Result Value Ref Range Neutrophil abs 12.0 (H) 1.7 - 6.5 K/cumm Imm gran abs 0.1 0.0 - 0.1 K/cumm Lymphocyte abs 1.0 0.8 - 3.3 K/cumm Monocyte abs 0.6 0.2 - 0.8 K/cumm Eosinophil abs 0.0 0.0 - 0.5 K/cumm Basophil abs 0.0 0.0 - 0.1 K/cumm Neutrophil pct 87.8 % Imm gran pct 0.4 % Lymphocyte pct 7.4 % Monocyte pct 4.2 % Eosinophil pct 0.1 % Basophil pct 0.1 % eGFR Collection Time: 04/25/19 9:29 PM Result Value Ref Range GFR 144 mL/min/1.73 m2 POCT glucose Collection Time: 04/25/19 9:31 PM Result Value Ref Range Glucose, POC 311 (Critical) 71 - 98 mg/dL POCT glucose Collection Time: 04/25/19 10:26 PM Result Value Ref Range Glucose, POC 320 (Critical) 71 - 98 mg/dL POCT glucose Collection Time: 04/25/19 11:27 PM Result Value Ref Range Glucose, POC 217 (H) 71 - 98 mg/dL Radiology: Xr Chest Pa Lateral 2 Views Result Date: 04/25/2019 Narrative: XR CHEST PA LATERAL 2 VIEWS HISTORY: pneumonia. COMPARISON: Portable chest on 02/14/2018. VIEWS: Erect PA and lateral views FINDINGS: Heart size is normal. Pulmonary vascularity is normal . Thoracic aorta is not dilated. No infiltrate, mass or pleural effusion is seen. Bony structures are unremarkable. satellite project site monitor wires overlie the chest. Impression: 1. No active disease. Electronically signed by: Chico Hutchins Jr., M.D. ASSESSMENT AND PLAN: Principal Problem: Diabetic ketoacidosis without coma associated with type 1 diabetes mellitus (CMS/HCC) Admitted to ICU with DKA protocol. Will bolus another L of IV fluids. Will continue on insulin dripper GlucoStabilizer protocol. The monitor closely electrolytes with serial BMP. Replete electrolytes as needed. Patient is not compliant with the medications regimen nor with her glucose checks. Will get clinical informatics educator. Consider discharging the patient with freestyle liver 14 days system to improve the adherence to the treatment regimen. Blood sugars less than 250. Lives continue after the bolus with D5 wood lf-normal saline. Monitor anion gap every 4 hours. Will switch to subcutaneous insulin when anion gap is closed. Active Problems: Dehydration Patient received a L of bolus of 10 mL saline in the ED. Will give another bolus of normal saline then continue with D5 half-normal saline and insulin drip. The Monitor strict I&Os. Serial labs as stated above Diabetic gastroparesis (CMS/HCC) Continue Reglan Metabolic acidosis Secondary to GI losses as well as DKA Will correct hyperglycemia and volume status. Noncompliance with medication regimen Will get social work and clinical informatics educator consult. Considers discharging the patient with freestyle course in a.m. Monitor system to improve adherenceto treatment regimen. Principal Problem: Diabetic ketoacidosis without coma associated with type 1 diabetes mellitus (CMS/HCC) Active Problems: Dehydration Diabetic gastroparesis (CMS/HCC) Metabolic acidosis Noncompliance with medication regimen Full Code Expected LOS: More than 2 midnights MDM: Moderate complexity Gio Sewell MD Internal Medicine - Hospitalist [facility] - Adult Hospitalist Service CC: KEANU Conway RTMENT CHAIRPERSON documented in this encounter Nursing Notes * Kanchan Loaiza RN - 04/26/2019 5:14 PM CST Pt signed out AMA after speaking extensively to her regarding what could happen informed pt of possibilities of , kidney failure, encephalopathy, and cardiac arrest. Educated her and grandmotherabout checking blood sugars even when not feeling well and taking her insulin if needed even when not eating. Pt did not take the education packet on DKA. RTMENT CHAIRPERSON documented in this encounter ED Notes * Genie Whiting RN - 04/25/2019 9:19 PM CST 23 yo female with Type 1 IDDM x 12 years. She was dcd from ICU today after being admitted last PM for DKA. She states she has not eaten or taken any insulin since she left at 1400 RTMENT CHAIRPERSON * Tavo Fall MD - 04/25/2019 9:10 PM CST HPI Chief Complaint Patient presents with ??? Nausea HPI 9:04 PM 04/25/2019 Patient is a 23 year old female with history of diabetes, DKA, and gastroenteritis presenting to the ED complaining of multiple episodes of vomiting. Patient was admitted to [facility] ED last night for nausea and vomiting and discharged 7 hours ago feeling improved. She states that after being discharged her symptoms had worsened and she began having nausea and vomiting again. There are no additional complaints or modifying factors at this time. Patient History Patient Active Problem List Diagnosis Date Noted ??? Hypomagnesemia 04/25/2019 ??? Metabolic acidosis 04/25/2019 [...] of ??? Sepsis due to gram-negative UTI ([facility]) 05/27/2018 ??? Type 1 diabetes mellitus with ketoacidosis without coma ([facility]) ??? Hyperglycemia ??? Nausea and vomiting 01/02/2018 ??? Dehydration 01/02/2018 ??? Metabolic alkalosis 01/02/2018 ??? Uncontrolled type 1 diabetes mellitus with hyperglycemia ([facility]) 01/02/2018 ??? Ketonuria 01/02/2018 ??? Thrombocytosis ([facility]) 01/02/2018 ??? Gastroenteritis ??? Sinus tachycardia ??? Normocytic anemia Past Medical History: Diagnosis Date ??? Depression ??? Diabetes mellitus ([facility]/HCC) ??? HX OTHER MEDICAL 2011 Diabetes mellitus, [...] less ??? Drug use: No Social History Patient does not qualify to have social determinant information on file (likely too young). Social History Narrative ??? Not on file Review of Systems Review of Systems Constitutional: Negative for chills, [...] Triage Vitals Temp Pulse Resp BP SpO2 04/25/19212204/25/19212204/25/19212224/19 2123 12/24/19 2121 36.9 ??C (98.5 ??F) 124 20 132/87 100 % Temp src Heart Rate Source Patient Position BP Location FiO2 (%) 04/25/192122 -- -- -- -- Oral Physical Exam Vitals signs and nursing note reviewed. Constitutional: Appearance: She is well-developed. Comments: Mild distress due to nausea and vomiting. HENT: Head: Normocephalic and atraumatic. Eyes: Conjunctiva/sclera: Conjunctivae normal. Neck: Musculoskeletal: Normal range of motion and neck supple. Cardiovascular: Rate and Rhythm: Normal rate and regular rhythm. Heart sounds: Normal heart sounds. No murmur. No friction rub. No gallop. Pulmonary: Effort: Pulmonary effort is normal. No respiratory distress. Breath sounds: Normal breath sounds. No wheezing or rales. Abdominal: General: There is no distension. Palpations: Abdomen is soft. Tenderness: There is no tenderness. Musculoskeletal: Normal range of motion. General: No tenderness or deformity. Skin: General: Skin is warm and dry. Capillary Refill: Capillary refill takes less than 2 seconds. Coloration: Skin is not pale. Findings: No erythema or rash. Neurological: Mental Status: She is alert and oriented to person, place, and time. Psychiatric: Behavior: Behavior normal. MDM MDM Number of Diagnoses or Management Options Amount and/or Complexity of Data Reviewed Clinical lab tests: ordered and reviewed ED Course as of Apr 26 24 Time: 04/25 599 Comment: Spoke with Dr. Sewell (Hospitalist) about patient condition and current symptoms. Agrees with plan and accepts for admit. By: Dago Walsh Vitals: 04/25/19 2300 BP: 130/91 Pulse: 118 Resp: 23 Temp: SpO2: 99% Labs Reviewed COMPREHENSIVE METABOLIC PANEL - Abnormal Result Value Sodium 132 (*) Potassium, pl 4.2 Chloride 98 CO2 14 (*) Anion gap 21 (*) BUN 11 Creatinine 0.43 (*) Glucose 351 (*) Calcium 9.4 Bilirubin, total 0.8 Protein, pl 7.7 Albumin 4.5 Alk phos 88 ALT 8 AST 14 CBC WITH AUTO DIFFERENTIAL - Abnormal WBC 13.7 (*) Hgb 14.1 Hct 41.1 Plt 384 MPV 9.2 RBC 4.80 MCV 85.6 MCH 29.4 MCHC 34.3 RDW CV 13.9 RDW SD 43.2 NRBC abs 0.00 DIFFERENTIAL AUTO - Abnormal Neutrophil abs 12.0 (*) Imm gran abs 0.1 Lymphocyte abs 1.0 Monocyte abs 0.6 Eosinophil abs 0.0 Basophil abs 0.0 Neutrophil pct 87.8 Imm gran pct 0.4 Lymphocyte pct 7.4 Monocyte pct 4.2 Eosinophil pct 0.1 Basophil pct 0.1 POCT GLUCOSE DEVICE - Abnormal Glucose, POC 311 (*) POCT GLUCOSE DEVICE - Abnormal Glucose, POC 320 (*) POCT GLUCOSE DEVICE - Abnormal Glucose, POC 217 (*) POCT GLUCOSE DEVICE - Abnormal Glucose, POC 180 (*) URINALYSIS AND REFLEX TO MICROSCOPIC AND CULTURE EGFR GFR 144 No orders to display Diabetic ketoacidosis without coma associated with type 1 diabetes mellitus ([facility]) I, Tavo Fall MD, have personally performed the services described in the documentation, reviewed the documentation, as recorded by the scribe in my presence, and it accurately and completely records my words and actions. 9:11 PM: Dago Walsh, scribing for and in the presence of Tavo Fall MD. I electronically signed this note at 9:11 PM on 04/26/2019. Tavo Fall MD 04/25/19 2330 Tavo Fall MD 04/26/19 0024 RTMENT CHAIRPERSON RTMENT CHAIRPERSON documented in this encounter Miscellaneous Notes * Plan of Care - Kanchan Loaiza RN - 04/26/2019 3:01 PM CST Goals: Clinical Goals for the Shift: Provide a safe and comfortable environment, attempt to control blood glucose, nausea, and vomiting. Summary: Pt remains in a safe and comfortable environment. Blood glucose controlled, anion gap remains open. Pt continues to have dry heaves but refuses antiemetics. Psychologist consulted. Pt refuses nutrition of all sorts. Problem: Health Behavior: Goal: Understanding of discharge needs will improve Outcome: Not Progressing Problem: Activity: Goal: Will verbalize the importance of balancing activity with adequate rest periods Outcome: Not Progressing Problem: Cardiac: Goal: Ability to maintain an adequate cardiac output will improve Outcome: Not Progressing Problem: Lack of Knowledge: Goal: Knowledge of the prescribed therapeutic regimen will improve Description Use of Medical Equipment and the Need for Diabetes Identification Jewelry Outcome: Not Progressing Goal: Ability to identify and alter actions that are detrimental to health will improve Outcome: Not Progressing Goal: Knowledge of prevention and discharge planning will improve Outcome: Not Progressing Problem: Fluid Volume: Goal: Will maintain adequate fluid volume Outcome: Not Progressing Goal: Signs and symptoms of dehydration will decrease Outcome: Not Progressing Problem: Metabolic: Goal: Ability to maintain appropriate glucose levels will improve Outcome: Not Progressing Goal: Diagnostic test results will improve Outcome: Not Progressing Goal: Complications related to the disease process, condition or treatment will be avoided or minimized Outcome: Not Progressing Problem: Physical Regulation: Goal: Will not experience complications related to bowel motility Outcome: Not Progressing Goal: Will remain free from infection Outcome: Not Progressing RTMENT CHAIRPERSON * Plan of Sandhya - Delia Welsh RN - 04/26/2019 3:25 AM CST Problem: Lack of Knowledge: Goal: Knowledge of [...] related to bowel motility Outcome: Progressing Goal: Will remain free from infection Outcome: Progressing Problem: Health Behavior: Goal: Understanding of discharge needs will improve Outcome: Not Progressing Problem: Activity: Goal: Will verbalize the importance of balancing activity with adequate rest periods Outcome: Not Progressing Problem: Cardiac: Goal: Ability to maintain an adequate cardiac output will improve Outcome: Not Progressing Problem: Lack of Knowledge: Goal: Ability to identify and alter actions that are detrimental to health will improve Outcome: Not Progressing Goal: Knowledge of prevention and discharge planning will improve Outcome: Not Progressing Goals: Clinical Goals for the Shift: control blood sugar, resolve DKA, control nausea and vomiting Summary: patient admitted for DKA after discharge yesterday afternoon, did not take insulin or check blood sugar at home after discharge, placed back on insulin drip, BMP q4 hours, clinical informatics educator consulted for further education needs RTMENT CHAIRPERSON documented in this encounter Plan of Treatment Not on file documented as of this encounter Procedures Procedure Name Priority Date/Time Associated Diagnosis Comments POCT GLUCOSE DEVICE Routine 04/26/2019 4 :28 PM DEPARTMENT CHAIRPERSON POCT GLUCOSE DEVICE Routine 04/26/2019 3 :35 PM DEPARTMENT CHAIRPERSON POCT GLUCOSE DEVICE Routine 04/26/2019 2 :30 PM DEPARTMENT CHAIRPERSON POCT GLUCOSE DEVICE Routine 04/26/2019 1 :32 PM DEPARTMENT CHAIRPERSON POCT GLUCOSE DEVICE Routine 04/26/2019 1 2:38 PM DEPARTMENT CHAIRPERSON EGFR Timed 04/26/2019 12:20 PM DEPARTMENT CHAIRPERSON MAGNESIUM Timed 04/26/2019 12:20 PM DEPARTMENT CHAIRPERSON BASIC METABOLIC PANEL Timed 04/26/2019 12:20 PM DEPARTMENT CHAIRPERSON POCT GLUCOSE DEVICE Routine 04/26/2019 1 1:33 AM DEPARTMENT CHAIRPERSON POCT GLUCOSE DEVICE Routine 04/26/2019 1 0:39 AM DEPARTMENT CHAIRPERSON POCT GLUCOSE DEVICE Routine 04/26/2019 9 :37 AM DEPARTMENT CHAIRPERSON POCT GLUCOSE DEVICE Routine 04/26/2019 8 :31 AM DEPARTMENT CHAIRPERSON EGFR Timed 04/26/2019 8:19 AM DEPARTMENT CHAIRPERSON PHOSPHORUS Timed 04/26/2019 8:19 AM DEPARTMENT CHAIRPERSON MAGNESIUM Timed 04/26/2019 8:19 AM DEPARTMENT CHAIRPERSON BASIC METABOLIC PANEL Timed 04/26/2019 8:19 AM DEPARTMENT CHAIRPERSON POCT GLUCOSE DEVICE Routine 04/26/2019 7 :32 AM DEPARTMENT CHAIRPERSON POCT GLUCOSE DEVICE Routine 04/26/2019 6 :28 AM DEPARTMENT CHAIRPERSON POCT GLUCOSE DEVICE Routine 04/26/2019 5 :21 AM DEPARTMENT CHAIRPERSON EGFR Routine 04/26/2019 5:13 AM DEPARTMENT CHAIRPERSON DIFFERENTIAL AUTO Routine 04/26/2019 5:1 3 AM DEPARTMENT CHAIRPERSON CBC WITH AUTO DIFFERENTIAL Routine 04/26/2019 5:13 AM DEPARTMENT CHAIRPERSON PHOSPHORUS Routine 04/26/2019 5:13 AM DEPARTMENT CHAIRPERSON MAGNESIUM Routine 04/26/2019 5:13 AM DEPARTMENT CHAIRPERSON COMPREHENSIVE METABOLIC PANEL Routine 04/26/2019 5:13 AM DEPARTMENT CHAIRPERSON POCT GLUCOSE DEVICE Routine 04/26/2019 4 :15 AM DEPARTMENT CHAIRPERSON POCT GLUCOSE DEVICE Routine 04/26/2019 3 :14 AM DEPARTMENT CHAIRPERSON POCT GLUCOSE DEVICE Routine 04/26/2019 2 :32 AM DEPARTMENT CHAIRPERSON POCT GLUCOSE DEVICE Routine 04/26/2019 1 :32 AM DEPARTMENT CHAIRPERSON POCT GLUCOSE DEVICE Routine 04/26/2019 1 2:22 AM DEPARTMENT CHAIRPERSON POCT GLUCOSE DEVICE Routine 04/25/2019 1 1:27 PM DEPARTMENT CHAIRPERSON POCT GLUCOSE DEVICE Routine 04/25/2019 1 0:26 PM DEPARTMENT CHAIRPERSON POCT GLUCOSE DEVICE Routine 04/25/2019 9 :31 PM DEPARTMENT CHAIRPERSON EGFR STAT 04/25/2019 9:29 PM DEPARTMENT CHAIRPERSON DIFFERENTIAL AUTO STAT 04/25/2019 9:2 9 PM DEPARTMENT CHAIRPERSON CBC WITH AUTO DIFFERENTIAL STAT 04/25/2019 9:29 PM DEPARTMENT CHAIRPERSON PHOSPHORUS Routine 04/25/2019 9:29 PM DEPARTMENT CHAIRPERSON MAGNESIUM Routine 04/25/2019 9:29 PM DEPARTMENT CHAIRPERSON COMPREHENSIVE METABOLIC PANEL STAT 04/25/2019 9:29 PM DEPARTMENT CHAIRPERSON documented in this encounter Results * (ABNORMAL) POCT glucose (04/26/2019 4:28 PM DEPARTMENT CHAIRPERSON) Glucose, POC 170(H) 71 - 98 mg/dL TOMY SAHU (HOLLISTER) Blood specimen (specimen) 04/26/2019 4:28 PM DEPARTMENT CHAIRPERSON 04/26/2019 4:28 PM DEPARTMENT CHAIRPERSON Jhonatan Rey MD LAB POCT ORDERABLE S - DEVICE Final Result Performing Organization Address [facility]/ZIP Co de Phone Number TOMY SAHU (HOLLISTER) 1 [facility] Department [place] [address] * (ABNORMAL) POCT glucose (04/26/2019 3:35 PM DEPARTMENT CHAIRPERSON) Glucose, POC 168(H) 71 - 98 mg/dL TOMY SAHU (HOLLISTER) Blood specimen (specimen) 04/26/2019 3:35 PM DEPARTMENT CHAIRPERSON 04/26/2019 3:35 PM DEPARTMENT CHAIRPERSON us Jhonatan Rey MD LAB POCT ORDERABLE S - DEVICE Final Result TOMY SAHU (VASHTI) 1 [facility] [place] [address] * (ABNORMAL) POCT glucose (04/26/2019 2:30 PM DEPARTMENT CHAIRPERSON) Glucose, POC 174(H) 71 - 98 mg/dL CERTOSHA SAHU (VASHTI) Blood specimen (specimen) 04/26/2019 2:30 PM DEPARTMENT CHAIRPERSON 04/26/2019 2:30 PM DEPARTMENT CHAIRPERSON Jhonatan Rey MD LAB POCT ORDERABLE S - DEVICE Final Result Performing Organization Address City/[facility] Co de Phone Number TOMY SAHU (VASHTI) 1 [facility] [place] [address] * (ABNORMAL) POCT glucose (04/26/2019 1:32 PM DEPARTMENT CHAIRPERSON) Glucose, POC 158(H) 71 - 98 mg/dL TOMY SAHU (VASHTI) Blood specimen (specimen) 04/26/2019 1:32 PM DEPARTMENT CHAIRPERSON 04/26/2019 1:32 PM DEPARTMENT CHAIRPERSON Jhonatan Rey MD LAB POCT ORDERABLE S - DEVICE Final Result Performing Organization Address [facility] Co de Phone Number TOMY SAHU (VASHTI) 1 [facility] [place] [address] * (ABNORMAL) POCT glucose (04/26/2019 12:38 PM DEPARTMENT CHAIRPERSON) Glucose, POC 153(H) 71 - 98 mg/dL TOMY SAHU (VASHTI) Blood specimen (specimen) 04/26/2019 12:38 PM DEPARTMENT CHAIRPERSON 04/26/2019 12:38 PM DEPARTMENT CHAIRPERSON Jhonatan Rey MD LAB POCT ORDERABLE S - DEVICE Final Result TOMY SAHU (VASHTI) 1 [facility] [place] [address] * eGFR (04/26/2019 12:20 PM DEPARTMENT CHAIRPERSON) eGFR 154 mL/min/1.7 3 m2 TOMY SAHU (HOLLISTER) Comment: Interpretive Data Reference Interval Normal ?>/= 90 mL/min/1.73m2 Mildly decreased* ? 60 - 89 mL/min/1.73m2 Mildly to moderately decreased ?45 - 59 mL/min/1.73m2 Moderately to severely decreased ??30 - 44 mL/min/1.73m2 Severely decreased ?15 - 29 mL/min/1.73m2 Kidney Failure ?< 15 ??mL/min/1.73m2 *Relative to young adult level If -Bangladeshi multiply value by 1.16. Estimated glomerular filtration [...] was last reviewed 2015. Blood specimen (specimen) 04/26/2019 12:20 PM DEPARTMENT CHAIRPERSON 04/26/2019 12:26 PM DEPARTMENT CHAIRPERSON us Gio Sewell MD LAB BLOOD ORDERABLES Final Re sult TOMY LUIS ALBERTO (HOLLISTER) 1 [facility] Department [place] [address] * Magnesium (04/26/2019 12:20 PM DEPARTMENT CHAIRPERSON) Pathologist [facility] Magnesium 1.6 1.6 - 2.4 mg/dL TOMY SAHU (HOLLISTER) Blood specimen (specimen) 04/26/2019 12:20 PM DEPARTMENT CHAIRPERSON 04/26/2019 12:26 PM DEPARTMENT CHAIRPERSON us Gio Sewell MD LAB BLOOD ORDERABLES Final Re sult TOMY SAHU (VASHTI) 1 [facility] Department [place] [address] * (ABNORMAL) Basic metabolic panel (04/26/2019 12:20 PM DEPARTMENT CHAIRPERSON) Sodium 132(L) 135 - 145 mmol/L [facility] (VASHTI) Potassium, pl 3.8 3.3 - 4.9 mmol/L [facility] ([place]ASHTI) Chloride 102 97 - 110 mmol/L [facility] ([place]ASHT[place]) CO2 14(L) 22 - 32 mmol/L [facility] (VASHTI) Anion gap 16(H) 2 - 15 mmol/L [facility] ([place]ASHTI) BUN 7(L) 8 - 25 mg/dL [facility] (VASHTI) Creatinine 0.35(L) 0.60 - 1.10 mg/dL [facility] (VASHTI) Glucose 176 70 - 199 mg/dL [facility] (VASHTI) [...] mg/dL [facility] (VASHTI) Blood specimen (specimen) 04/26/2019 12:20 PM DEPARTMENT CHAIRPERSON 04/26/2019 12:26 PM DEPARTMENT CHAIRPERSON Gio Sewell MD LAB BLOOD ORDERABLES Final Re sult TOMY SAHU (VASHTI) 1 [facility] [place] [address] * (ABNORMAL) POCT glucose (04/26/2019 11:33 AM DEPARTMENT CHAIRPERSON) Glucose, POC 121(H) 71 - 98 mg/dL [facility] (VASHTI) Blood specimen (specimen) 04/26/2019 11:33 AM DEPARTMENT CHAIRPERSON 04/26/2019 11:33 AM DEPARTMENT CHAIRPERSON Jhonatan Rey MD LAB POCT ORDERABLE S - DEVICE Final Result TOMY SAHU (VASHTI) 1 [facility] [place] [address] * (ABNORMAL) POCT glucose (04/26/2019 10:39 AM DEPARTMENT CHAIRPERSON) Glucose, POC 109(H) 71 - 98 mg/dL TOMY SAHU (VASHTI) Blood specimen (specimen) 04/26/2019 10:39 AM DEPARTMENT CHAIRPERSON 04/26/2019 10:39 AM DEPARTMENT CHAIRPERSON Jhonatan Rey MD LAB POCT ORDERABLE S - DEVICE Final Result TOMY SAHU (VASHTI) 1 [facility] [place] [address] * (ABNORMAL) POCT glucose (04/26/2019 9:37 AM DEPARTMENT CHAIRPERSON) Glucose, POC 104(H) 71 - 98 mg/dL TOMY SAHU (VASHTI) Blood specimen (specimen) 04/26/2019 9:37 AM DEPARTMENT CHAIRPERSON 04/26/2019 9:37 AM DEPARTMENT CHAIRPERSON Jhonatan Rey MD LAB POCT ORDERABLE S - DEVICE Final Result TOMY SAHU (VASHTI) 1 [facility] [place] [address] * (ABNORMAL) POCT glucose (04/26/2019 8:31 AM DEPARTMENT CHAIRPERSON) Glucose, POC 118(H) 71 - 98 mg/dL TOMY LUIS ALBERTO (VASHTI) Blood specimen (specimen) 04/26/2019 8:31 AM DEPARTMENT CHAIRPERSON 04/26/2019 8:31 AM DEPARTMENT CHAIRPERSON us Jhonatan Rey MD LAB POCT ORDERABLE S - DEVICE Final Result TOMY SAHU (HOLLISTER) 1 [facility] Department [place] [address] * eGFR (04/26/2019 8:19 AM DEPARTMENT CHAIRPERSON) eGFR 166 mL/min/1.7 3 m2 ASHLEYTOSHA SAHU (VASHTI) Comment: Interpretive Data Reference Interval Normal ?>/= 90 mL/min/1.73m2 Mildly decreased* ? 60 - 89 mL/min/1.73m2 Mildly to moderately decreased ?45 - 59 mL/min/1.73m2 Moderately to severely decreased ??30 - 44 mL/min/1.73m2 Severely decreased ?15 - 29 mL/min/1.73m2 Kidney Failure ?< 15 ??mL/min/1.73m2 *Relative to young adult level If -Bangladeshi multiply value by 1.16. Estimated glomerular filtration [...] was last reviewed 2015. Blood specimen (specimen) 04/26/2019 8:19 AM DEPARTMENT CHAIRPERSON 04/26/2019 8:32 AM DEPARTMENT CHAIRPERSON Gio Sewell MD LAB BLOOD ORDERABLES Final Re sult Performing Organization Address [facility]/ZIP Co de Phone Number TOMY SAHU (VASHTI) 1 [facility] [place] [address] * Phosphorus (04/26/2019 8:19 AM DEPARTMENT CHAIRPERSON) Pathologist [facility] Phosphorus, pl 2.3 2.3 - 4.5 mg/dL [facility] (VASHTI) Blood specimen (specimen) 04/26/2019 8:19 AM DEPARTMENT CHAIRPERSON 04/26/2019 8:32 AM DEPARTMENT CHAIRPERSON Gio Sewell MD LAB BLOOD ORDERABLES Final Re sult Performing Organization Address [facility] Co de Phone Number TOMY SAHU (VASHTI) 1 [facility] [place] [address] * Magnesium (04/26/2019 8:19 AM DEPARTMENT CHAIRPERSON) [facility] Magnesium 1.7 1.6 - 2.4 mg/dL [facility] (VSAHTI) Blood specimen (specimen) 04/26/2019 8:19 AM DEPARTMENT CHAIRPERSON 04/26/2019 8:32 AM DEPARTMENT CHAIRPERSON Goi Sewell MD LAB BLOOD ORDERABLES Final Re sult Performing Organization Address [facility] Co de Phone Number TOMY SAHU (VASHTI) 1 [facility] [place] [address] * (ABNORMAL) Basic metabolic panel (04/26/2019 8:19 AM DEPARTMENT CHAIRPERSON) Pathologist [facility] Sodium 131(L) 135 - 145 mmol/L [facility] (VASHTI) Potassium, pl 4.1 3.3 - 4.9 mmol/L [facility] (VASHTI) Chloride 105 97 - 110 mmol/L [facility] (VASHTI) CO2 16(L) 22 - 32 mmol/L [facility] (VASHTI) Anion gap 10 2 - 15 mmol/L [facility] (VASHTI) BUN 9 8 - 25 mg/dL [facility] (VASHTI) Creatinine 0.28(L) 0.60 - 1.10 mg/dL [facility] (VASHTI) Glucose 134 70 - 199 mg/dL [facility] (VASHTI) Comment: Interpretive Data Fasting glucose [...] 2017. Calcium 8.6 8.5 - 10.3 mg/dL [facility] (VASHTI) Blood specimen (specimen) 04/26/2019 8:19 AM DEPARTMENT CHAIRPERSON 04/26/2019 8:32 AM DEPARTMENT CHAIRPERSON us Gio Sewell MD LAB BLOOD ORDERABLES Final Re sult TOMY [facility] ([place]) 1 [facility] [place] [address] * (ABNORMAL) POCT glucose (04/26/2019 7:32 AM DEPARTMENT CHAIRPERSON) [facility] Signature Glucose, POC 155(H) 71 - 98 mg/dL [facility] ([place]) Blood specimen (specimen) 04/26/2019 7:32 AM DEPARTMENT CHAIRPERSON 04/26/2019 7:32 AM DEPARTMENT CHAIRPERSON us Jhonatan Rey MD LAB POCT ORDERABLE S - DEVICE Final Result TOMY [facility] ([place]) 1 [facility] [employer] [place] [address] * (ABNORMAL) POCT glucose (04/26/2019 6:28 AM DEPARTMENT CHAIRPERSON) Glucose, POC 217(H) 71 - 98 mg/dL [facility] ([place]) Blood specimen (specimen) 04/26/2019 6:28 AM DEPARTMENT CHAIRPERSON 04/26/2019 6:28 AM DEPARTMENT CHAIRPERSON Jhonatan Rey MD LAB POCT ORDERABLE S - DEVICE Final Result Performing Organization Address City/[facility]/ZIP Co de Phone Number TOMY [facility] ([place]) 1 [facility] [place] [address] * (ABNORMAL) POCT glucose (04/26/2019 5:21 AM DEPARTMENT CHAIRPERSON) Glucose, POC 272(H) 71 - 98 mg/dL [facility] ([place]) Blood specimen (specimen) 04/26/2019 5:21 AM DEPARTMENT CHAIRPERSON 04/26/2019 5:21 AM DEPARTMENT CHAIRPERSON Jhonatan Rey MD LAB POCT ORDERABLE S - DEVICE Final Result Performing Organization Address [facility] de Phone Number TOMY [facility] ([place]) 1 [facility] [place] [address] * eGFR (04/26/2019 5:13 AM DEPARTMENT CHAIRPERSON) eGFR 150 mL/min/1.7 3 m2 [facility] ([place]) Comment: Interpretive Data Reference Interval Normal ?>/= 90 mL/min/1.73m2 Mildly decreased* ? 60 - 89 mL/min/1.73m2 Mildly to moderately decreased ?45 - 59 mL/min/1.73m2 Moderately to severely decreased ??30 - 44 mL/min/1.73m2 Severely decreased ?15 - 29 mL/min/1.73m2 Kidney Failure ?< 15 ??mL/min/1.73m2 *Relative to young adult level If -Bangladeshi multiply value by 1.16. Estimated glomerular filtration [...] was last reviewed 2015. Blood specimen (specimen) 04/26/2019 5:13 AM DEPARTMENT CHAIRPERSON 04/26/2019 5:22 AM DEPARTMENT CHAIRPERSON us Tavo Fall MD LAB BLOOD ORDERABLES Fi nal Result [facility] ([place]) 1 [facility] [place] [address] * (ABNORMAL) Differential, auto (04/26/2019 5:13 AM DEPARTMENT CHAIRPERSON) Neutrophil abs 10.2(H) 1.7 - 6.5 K/cumm [facility] ([place]) Imm gran abs 0.1 0.0 - 0.1 K/cumm [facility] ([place]) Lymphocyte abs 1.0 0.8 - 3.3 K/cumm [facility] ([place]) Monocyte abs 0.7 0.2 - 0.8 K/cumm [facility] ([place]) Eosinophil abs 0.0 0.0 - 0.5 K/cumm [facility] ([place]) Basophil abs 0.0 0.0 - 0.1 K/cumm [facility] ([place]) Neutrophil pct 85.4 % [facility] ([place]) Comment: Interpretive [...] was last revised on 2017. Lymphocyte pct 8.3 % [facility] ([place]) Comment: Interpretive Data Percent cell count reference ranges are not reported, since discordance with absolute values may lead to misinterpretation of CBC data. Current Interpretive Data was last revised on 2017. Monocyte pct 5.6 % [facility] ([place]) Comment: Interpretive Data [...] last revised on 2017. Blood specimen (specimen) 04/26/2019 5:13 AM DEPARTMENT CHAIRPERSON 04/26/2019 5:22 AM DEPARTMENT CHAIRPERSON us Tavo Fall MD LAB BLOOD ORDERABLES Fi nal Result Performing Organization Address City/[facility]/ZIP Co de Phone Number TOMY [facility] ([place]) 1 [facility] [place] [address] * Magnesium (04/26/2019 5:13 AM DEPARTMENT CHAIRPERSON) Magnesium 1.7 1.6 - 2.4 mg/dL [facility] ([place]) Blood specimen (specimen) 04/26/2019 5:13 AM DEPARTMENT CHAIRPERSON 04/26/2019 5:22 AM DEPARTMENT CHAIRPERSON Gio Sewell MD LAB BLOOD ORDERABLES Final Re sult TOMY [facility] ([place]) 1 [facility] [place] [address] * Phosphorus (04/26/2019 5:13 AM DEPARTMENT CHAIRPERSON) Phosphorus, pl 2.9 2.3 - 4.5 mg/dL [facility] ([place]) Blood specimen (specimen) 04/26/2019 5:13 AM DEPARTMENT CHAIRPERSON 04/26/2019 5:22 AM DEPARTMENT CHAIRPERSON us Gio Sewell MD LAB BLOOD ORDERABLES Final Re sult [facility] ([place]) 1 [facility] Department [place] [address] * (ABNORMAL) Comprehensive metabolic panel (04/26/2019 5:13 AM DEPARTMENT CHAIRPERSON) Sodium 132(L) 135 - 145 mmol/L [facility] [...] 0.38(L) 0.60 - 1.10 mg/dL [facility] ([place]) Glucose 305(H) 70 - 199 mg/dL [facility] ([place]) [...] - 130 Units/L [facility] ([place]) ALT 6(L) 7 - 45 Units/L [facility] ([place]) AST 10 10 - 45 Units/L [facility] ([place]) Blood specimen (specimen) 04/26/2019 5:13 AM DEPARTMENT CHAIRPERSON 04/26/2019 5:22 AM DEPARTMENT CHAIRPERSON us Tavo Fall MD LAB BLOOD ORDERABLES Fi nal Result [facility] ([place]) 1 [facility] Department [place] [address] * (ABNORMAL) CBC with auto differential (04/26/2019 5:13 AM DEPARTMENT CHAIRPERSON) WBC 11.9(H) 3.8 - 9.9 K/cumm [facility] ([place]) Hgb 12.1 11.9 - 15.5 g/dL [facility] ([place]) Hct 35.9 35.6 - 45.5 % [facility] ([place]) Plt 358 150 - 400 K/cumm [facility] ([place]) MPV 9.2 9.1 - 12.3 fL [facility] ([place]) RBC 4.13 3.90 - 5.20 M/cumm [facility] ([place]) MCV 86.9 81.3 - 96.4 fL [facility] ([place]) MCH 29.3 27.1 - 33.3 pg [facility] ([place]) MCHC 33.7 32.3 - 35.7 g/dL [facility] ([place]) RDW CV 14.1 11.1 - 14.9 % [facility] ([place]) RDW SD 44.8 35.7 - 48.1 fL [facility] ([place]) NRBC abs 0.00 0.00 - 0.01 K/cumm [facility] ([place]) Blood specimen (specimen) 04/26/2019 5:13 AM DEPARTMENT CHAIRPERSON 04/26/2019 5:22 AM DEPARTMENT CHAIRPERSON Tavo Fall MD LAB BLOOD ORDERABLES Fi nal Result TOMY [facility] ([place]) 1 [facility] [place] [address] * (ABNORMAL) POCT glucose (04/26/2019 4:15 AM DEPARTMENT CHAIRPERSON) Glucose, POC 274(H) 71 - 98 mg/dL [facility] ([place]) Blood specimen (specimen) 04/26/2019 4:15 AM DEPARTMENT CHAIRPERSON 04/26/2019 4:15 AM DEPARTMENT CHAIRPERSON Jhonatan Rey MD LAB POCT ORDERABLE S - DEVICE Final Result Performing Organization Address [facility]/ZIP Co de Phone Number TOMY [facility] ([place]) 1 [facility] [place] [address] * (ABNORMAL) POCT glucose (04/26/2019 3:14 AM DEPARTMENT CHAIRPERSON) Glucose, POC 263(H) 71 - 98 mg/dL [facility] ([place]) Blood specimen (specimen) 04/26/2019 3:14 AM DEPARTMENT CHAIRPERSON 04/26/2019 3:14 AM DEPARTMENT CHAIRPERSON Jhonatan Rey MD LAB POCT ORDERABLE S - DEVICE Final Result Performing Organization Address City/[facility]/ZIP Co de Phone Number TOMY [facility] ([place]) 1 [facility] [place] [address] * (ABNORMAL) POCT glucose (04/26/2019 2:32 AM DEPARTMENT CHAIRPERSON) Glucose, POC 238(H) 71 - 98 mg/dL [facility] ([place] Blood specimen (specimen) 04/26/2019 2:32 AM DEPARTMENT CHAIRPERSON 04/26/2019 2:32 AM DEPARTMENT CHAIRPERSON Jhonatan Rey MD LAB POCT ORDERABLE S - DEVICE Final Result Performing Organization Address City/[facility]/ZIP Co de Phone Number TOMY [facility] ([place]) 1 [facility] [place] [address] * (ABNORMAL) POCT glucose (04/26/2019 1:32 AM DEPARTMENT CHAIRPERSON) Glucose, POC 228(H) 71 - 98 mg/dL [facility] ([place]) Blood specimen (specimen) 04/26/2019 1:32 AM DEPARTMENT CHAIRPERSON 04/26/2019 1:32 AM DEPARTMENT CHAIRPERSON Gio Sewell MD LAB POCT ORDERABLES - DEVICE Final Result Performing Organization Address [facility] Co de Phone Number TOMY [facility] ([place]) 1 [facility] [place] [address] * (ABNORMAL) POCT glucose (04/26/2019 12:22 AM DEPARTMENT CHAIRPERSON) Glucose, POC 180(H) 71 - 98 mg/dL [facility] ([place]) Blood specimen (specimen) 04/26/2019 12:22 AM DEPARTMENT CHAIRPERSON 04/26/2019 12:22 AM DEPARTMENT CHAIRPERSON Gio Sewell MD LAB POCT ORDERABLES - DEVICE Final Result Performing Organization Address City/[facility]/ZIP Co de Phone Number TOMY [facility] ([place]) 1 [facility] [place] [address] * (ABNORMAL) POCT glucose (04/25/2019 11:27 PM DEPARTMENT CHAIRPERSON) Glucose, POC 217(H) 71 - 98 mg/dL [facility] Blood specimen (specimen) 04/25/2019 11:27 PM DEPARTMENT CHAIRPERSON 04/25/2019 11:27 PM DEPARTMENT CHAIRPERSON Tavo Fall MD LAB POCT ORDERABLES - D EVICE Final Result Performing Organization Address [facility]/ZIP Co de Phone Number TOMY [facility] ([place]) 1 [facility] [place] [address] * (ABNORMAL) POCT glucose (04/25/2019 10:26 PM DEPARTMENT CHAIRPERSON) Glucose, POC 320(C) 71 - 98 mg/dL [facility] ([place]) Blood specimen (specimen) 04/25/2019 10:26 PM DEPARTMENT CHAIRPERSON 04/25/2019 10:26 PM DEPARTMENT CHAIRPERSON us Tavo Fall MD LAB POCT ORDERABLES - D EVICE Final Result Performing Organization Address [facility] Co de Phone Number TOMY [facility] ([place]) 1 [facility] [place] [address] * (ABNORMAL) POCT glucose (04/25/2019 9:31 PM DEPARTMENT CHAIRPERSON) Glucose, POC 311(C) 71 - 98 mg/dL [facility] ([place]) Blood specimen (specimen) 04/25/2019 9:31 PM DEPARTMENT CHAIRPERSON 04/25/2019 9:31 PM DEPARTMENT CHAIRPERSON us Notinfile Unknown LAB POCT ORDERABLES - DEVICE F inal Result Performing Organization Address [facility] Co de Phone Number TOMY [facility] ([place]) 1 [facility] [place] [address] * Phosphorus (04/25/2019 9:29 PM DEPARTMENT CHAIRPERSON) Phosphorus, pl 3.2 2.3 - 4.5 mg/dL [facility] ([place]) Blood specimen (specimen) 04/25/2019 9:29 PM DEPARTMENT CHAIRPERSON 04/26/2019 12:51 AM DEPARTMENT CHAIRPERSON Narrative [facility] ([place]) - 04/26/2019 1:06 AM DEPARTMENT CHAIRPERSON Please run off 2129 CMP us Gio Sewell MD LAB BLOOD ORDERABLES Final Re sult Performing Organization Address [facility]/ZIP Co de Phone Number TOMY [facility] ([place]) 1 [facility] [employer] [place] [address] * Magnesium (04/25/2019 9:29 PM DEPARTMENT CHAIRPERSON) Pathologist [facility] Magnesium 1.8 1.6 - 2.4 mg/dL [facility] ([place]) Blood specimen (specimen) 04/25/2019 9:29 PM DEPARTMENT CHAIRPERSON 04/26/2019 12:51 AM DEPARTMENT CHAIRPERSON Narrative [facility]OMY [facility] ([place]) - 04/26/2019 1:06 AM DEPARTMENT CHAIRPERSON Please run off 2129 CMP us Gio Sewell MD LAB BLOOD ORDERABLES Final Re sult Performing Organization Address [facility] Co de Phone Number TOMY [facility] ([place]) 1 [facility] [employer] [place] [address] * eGFR (04/25/2019 9:29 PM DEPARTMENT CHAIRPERSON) eGFR 144 mL/min/1.7 3 m2 [facility] ([place]) Comment: Interpretive Data Reference Interval Normal ?>/= 90 mL/min/1.73m2 Mildly decreased* ? 60 - 89 mL/min/1.73m2 Mildly to moderately decreased ?45 - 59 mL/min/1.73m2 Moderately to severely decreased ??30 - 44 mL/min/1.73m2 Severely decreased ?15 - 29 mL/min/1.73m2 Kidney Failure ?< 15 ??mL/min/1.73m2 *Relative to young adult level If -Bangladeshi multiply value by 1.16. Estimated glomerular filtration [...] was last reviewed 2015. Blood specimen (specimen) 04/25/2019 9:29 PM DEPARTMENT CHAIRPERSON 04/25/2019 9:32 PM DEPARTMENT CHAIRPERSON us Tavo Fall MD LAB BLOOD ORDERABLES Fi nal Result [facility] ([place]) 1 [facility] Department [place] [address] * (ABNORMAL) Differential, auto (04/25/2019 9:29 PM DEPARTMENT CHAIRPERSON) Neutrophil abs 12.0(H) 1.7 - 6.5 K/cumm [facility] ([place]) Imm gran abs 0.1 0.0 - 0.1 K/cumm [facility] ([place]) Lymphocyte abs 1.0 0.8 - 3.3 K/cumm [facility] ([place]) Monocyte abs 0.6 0.2 - 0.8 K/cumm [facility] ([place]) Eosinophil abs 0.0 0.0 - 0.5 K/cumm [facility] ([place]) Basophil abs 0.0 0.0 - 0.1 K/cumm [facility] ([place]) Neutrophil pct 87.8 % [facility] ([place]) Comment: Interpretive [...] was last revised on 2017. Lymphocyte pct 7.4 % [facility] ([place]) Comment: Interpretive Data Percent cell count reference ranges are not reported, since discordance with absolute values may lead to misinterpretation of CBC data. Current Interpretive Data was last revised on 2017. Monocyte pct 4.2 % [facility] ([place]) Comment: Interpretive Data [...] last revised on 2017. Blood specimen (specimen) 04/25/2019 9:29 PM DEPARTMENT CHAIRPERSON 04/25/2019 9:32 PM DEPARTMENT CHAIRPERSON us Tavo Fall MD LAB BLOOD ORDERABLES Fi nal Result [facility] ([place]) 1 [facility] Department [place] [address] * (ABNORMAL) CBC with auto differential (04/25/2019 9:29 PM DEPARTMENT CHAIRPERSON) WBC 13.7(H) 3.8 - 9.9 K/cumm [facility] ([place]) Hgb 14.1 11.9 - 15.5 g/dL [facility] ([place]) Hct 41.1 35.6 - 45.5 % [facility] ([place]) Plt 384 150 - 400 K/cumm [facility] ([place]) MPV 9.2 9.1 - 12.3 fL [facility] ([place]) RBC 4.80 3.90 - 5.20 M/cumm [facility] ([place]) MCV 85.6 81.3 - 96.4 fL [facility] ([place]) MCH 29.4 27.1 - 33.3 pg [facility] ([place]) MCHC 34.3 32.3 - 35.7 g/dL [facility] ([place]) RDW CV 13.9 11.1 - 14.9 % [facility] ([place]) RDW SD 43.2 35.7 - 48.1 fL [facility] ([place]) NRBC abs 0.00 0.00 - 0.01 K/cumm [facility] ([place]) Blood specimen (specimen) 04/25/2019 9:29 PM DEPARTMENT CHAIRPERSON 04/25/2019 9:32 PM DEPARTMENT CHAIRPERSON us Tavo Fall MD LAB BLOOD ORDERABLES Fi nal Result [facility] ([place]) 1 [facility] Department [place] [address] * (ABNORMAL) Comprehensive metabolic panel (04/25/2019 9:29 PM DEPARTMENT CHAIRPERSON) Sodium 132(L) 135 - 145 mmol/L [facility] ([place]) Potassium, pl 4.2 3.3 - 4.9 mmol/L [facility] ([place]) Chloride 98 97 - 110 mmol/L [facility] ([place]) CO2 14(L) 22 - 32 mmol/L [facility] ([place]) Anion gap 21(H) 2 - 15 mmol/L [facility] ([place]) BUN 11 8 - 25 mg/dL [facility] ([place]) Creatinine 0.43(L) 0.60 - 1.10 mg/dL [facility] ([place]) Glucose 351(H) 70 - 199 mg/dL [facility] ([place]) [...] 2017. Calcium 9.4 8.5 - 10.3 mg/dL [facility] ([place]) [...] Units/L [facility] ([place]) Blood specimen (specimen) 04/25/2019 9:29 PM DEPARTMENT CHAIRPERSON 04/25/2019 9:32 PM DEPARTMENT CHAIRPERSON us Tavo Fall MD LAB BLOOD ORDERABLES Fi nal Result [facility] ([place]) 1 [facility] Department [place] [address] documented in this encounter Visit Diagnoses Diagnosis Diabetic ketoacidosis without coma associated with type 1 diabetes mellitus (CMS/HCC) (HCC)- Primary Diabetic ketoacidosis without coma associated with type 1 diabetes mellitus (CMS/HCC) (HCC) Dehydration Diabetic gastroparesis (CMS/HCC) (HCC) Type II or unspecified type diabetes mellitus with neurological manifestations, not stated as uncontrolled Metabolic acidosis Acidosis Noncompliance with medication regimen Personal history of [...] glucose less than 70 mg/dL, Starting on Wed04/25/19 at 2107, Dose as determined by GlucoStabilizer dka order. 25 gm = 250 mL 50 gm = 500 mL, Indications: HypoglyemiaIndications:Hypogl yemia dextrose (D10W) 10% bolus 250 mL 250 mL, intravenous, at 1,000 mL/hr, Administer over 15 Minutes, Every 15 min PRN, blood glucose less than 70 mg/dL and UNABLE to swallow/take PO glucose/juice., Starting on Wed04/26/19 at 0917, After treatment for hypoglycemia, recheck BG followed by treatment every 15 minutes until the BG is greater than 100 mg/dL. Then check BG 1 hour post treatment. If BG is less than 100 mg/dL, repeat Q15 minute BG checks and treatment. Call MD for each episode of hypoglycemia., Indications: hypoglycemic disorderIndications:hypoglyce lakes[place]ia disorder dextrose 5% infusion 100 mL/hr, intravenous, Continuous, Starting on Wed04/26/19 at 0115, Start when blood glucose less than 250 mg/dL and decrease rate of previous IV fluid infusion order. Notify MD when blood glucose less than 250 mg/dL and adjusting IV fluids. New Bag 04/26/2019 10:20 AM DEPARTMENT CHAIRPERSON 100 mL/hr 100 mL/hr New Bag 04/26/2019 12:53 AM DEPARTMENT CHAIRPERSON 100 mL/hr 100 mL/hr dextrose gel in packet 15 g 15 g, oral, Every 15 min PRN, low blood sugar, blood glucose less than 70 mg/dL, Starting on Wed04/26/19 at 0917, If patient is alert and able to [...] of hypoglycemia., Indications: hypoglycemic disorderIndications:hypog lycemic disorder glucagon injection 1 mg 1 mg, intramuscular, Administer over 1 Minutes, Every 30 min PRN, low blood sugar, blood glucose less than 70 mg/dL AND no IV access AND unable to take PO glucose/jiuce., Starting on Wed04/26/19 at 0917, After Glucagon is administered, position patient on [...] MD for each episode of hypoglycemia., Indications: HypoglycemiaIndications:H ypoglycemia insulin glargine (LANTUS,BASAGLAR) pen injection 24 Units 24 Units, subcutaneous, Every morning, First dose (after last modification) on Wed04/26/19 at 1000, Do not mix with other insulins, Indications: Diabetes MellitusIndications:Diabe celia Mellitus Given 04/26/2019 11:07 AM DEPARTMENT CHAIRPERSON 24 Units Left Upper Arm insulin lispro (HumaLOG) pen injection 1-4 Units 1-4 Units, subcutaneous, Nightly, First dose on Wed04/26/19 at 2100, Blood Sugar High Dose PM - PO patients 139 or less No insulin 140 - 175 1 unit 176 - 200 2 units 201 - 250 3 units 251 - 299 4 units Greater than 299 Call MD for hyperglycemia management instructions Do NOT hold for NPO status., Indications: Diabetes MellitusIndications:Diabe celia Mellitus insulin lispro (HumaLOG) pen injection 1-7 Units 1-7 Units, subcutaneous, 3 times daily with meals, First dose on Wed04/26/19 at 1200, Blood Sugar High Dose meal time - PO patients 139 or less No insulin 140 - 175 2 unit 176 - 200 3 unit 201 - 250 5 units 251 - 299 7 units Greater than 299 Call MD for hyperglycemia management instructions Do NOT hold for NPO status., Indications: Diabetes MellitusIndications:Diabe celia Mellitus insulin lispro (HumaLOG) pen injection 6 Units 6 Units, subcutaneous, 3 times daily with meals, First dose on Wed04/26/19 at 1000, If BG 100 mg/dl or more, give [...] insulin dose., Indications: Diabetes MellitusIndications:Diabe celia Mellitus insulin regular (HumuLIN R, NovoLIN R) 100 Units in sodium chloride 0.9% 100 mL (1 Units/mL) infusion 0-30 Units/hr (0-30 mL/hr), 1 units/mL, intravenous, Titrated, Starting on Wed04/25/19 at 2108, Until Wed04/26/19 at 2219, Indications: Hyperglycemia, Desired Range (mg/dL): 130-180 general patients, Multiplier: 0.01, Adjust rate per GlucoStabilizer program for dka order When new IV tubing is used, completely prime the tubing. Once primed, waste an additional 20 ml of insulin infusion using the IV pump prior to connecting to patient., RoutineIndications:Hyperg lycemia Restarted 04/26/2019 2:31 PM DEPARTMENT CHAIRPERSON 1.1 Units/hr 1.1 mL/hr Rate/Dose Change 04/26/2019 10:40 AM DEPARTMENT CHAIRPERSON 0.5 Units/hr 0.5 mL/hr Rate/Dose Change 04/26/2019 9:38 AM DEPARTMENT CHAIRPERSON 0.9 Units/hr 0.9 m L/hr insulin regular bolus from bag 1-10 Units 1-10 Units, intravenous, As needed, hyperglycemia, Starting on Wed04/25/19 at 2107, Bolus per GlucoStabilizer dka order., Indications: HyperglycemiaIndications:Hyperglyc emia ondansetron (ZOFRAN) injection 4 mg 4 mg, intravenous, Administer over 2 Minutes, Every 6 hours PRN, nausea, vomiting, if not tolerating PO, Starting on Wed04/26/19 at 0034, Indications: Nausea and VomitingIndications:Nausea and Vomiting ondansetron ODT (ZOFRAN-ODT) disintegrating tablet 4 mg 4 mg, oral, Every 6 hours PRN, nausea, vomiting, Starting on Wed04/26/19 at 0034, Indications: Nausea and VomitingIndications:Nausea and Vomiting sodium chloride 0.45% infusion 150 mL/hr, intravenous, Continuous, Starting on Wed04/26/19 at 0115, Decrease rate to 100 mL/hr when blood glucose less than 250 mg/dL. New Bag 04/26/2019 12:38 PM DEPARTMENT CHAIRPERSON 150 mL/hr 150 mL/hr New Bag 04/26/2019 12:53 AM DEPARTMENT CHAIRPERSON 100 mL/hr 100 mL/hr sodium chloride 0.9% bolus 1,000 mL 1,000 mL, intravenous, at 1,000 mL/hr, Administer over 1 Hours, Once, On Wed04/25/19 at 2108, For 1 dose New Bag 04/25/2019 10:09 PM DEPARTMENT CHAIRPERSON 1,000 mL 1000 mL/hr sodium chloride 0.9% bolus 1,000 mL 1,000 mL, intravenous, Once, On Wed04/26/19 at 0245, For 1 dose New Bag 04/26/2019 2:37 AM DEPARTMENT CHAIRPERSON 1,000 mL documented in this encounter Active and Recently Administered Medications Times are shown in DEPARTMENT CHAIRPERSON. Scheduled Medication Order 04/24/2019 04/25/2019 04/26/2019 insulin glargine (LANTUS,BASAGLAR) pen injection 24 Units 24 Units, subcutaneous, Every morning, First dose (after last modification) on Wed04/26/19 at 1000, Do not mix with other insulins, Indications: Diabetes Mellitus 1107 (Given - Provid er: Kanchan Loaiza RN) insulin lispro (HumaLOG) pen injection 1-4 Units 1-4 Units, subcutaneous, Nightly, First dose on Wed04/26/19 at 2100, Blood Sugar High Dose PM - PO patients 139 or less No insulin 140 - 175 1 unit 176 - 200 2 units 201 - 250 3 units 251 - 299 4 units Greater than 299 Call MD for hyperglycemia management instructions Do NOT hold for NPO status., Indications: Diabetes Mellitus insulin lispro (HumaLOG) pen injection 1-7 Units 1-7 Units, subcutaneous, 3 times daily with meals, First dose on Wed04/26/19 at 1200, Blood Sugar High Dose meal time - PO patients 139 or less No insulin 140 - 175 2 unit 176 - 200 3 unit 201 - 250 5 units 251 - 299 7 units Greater than 299 Call MD for hyperglycemia management instructions Do NOT hold for NPO status., Indications: Diabetes Mellitus 1107 (Not Given - Provider: Kanchan Loaiza RN - Reason: Order parameters not met) insulin lispro (HumaLOG) pen injection 6 Units 6 Units, subcutaneous, 3 times daily with meals, First dose on Wed04/26/19 at 1000, If BG 100 mg/dl or more, give [...] in patient's insulin dose., Indications: Diabetes Mellitus 1105 (Not Given - Provider: Kanchan Loaiza RN - Reason: NPO) magnesium sulfate 2 g/50 mL in water (premix) 2 g 2 g, intravenous, Administer over 60 Minutes, Once, On Wed04/26/19 at 0115, For 1 dose, Do not give if serum Cr greater than 2.5 mg/dL., Indications: Magnesium Repletion 0145 (Not Given - Provider: Delia Welsh RN - Reason: Other - Comment: Magnesium level of 1.8) metoclopramide (REGLAN) 1 mg/mL oral solution 10 mg 10 mg, oral, 4 times daily before meals & nightly, First dose on Wed04/26/19 at 0730 0733 (Not Given - Provider: Kanchan Loaiza, MARY - Reason: Patient/family refused)1107 (Not Given - Provider: Kanchan Loaiza, MARY - Reason: Patient/family refused) sodium chloride 0.9% bolus 1,000 mL (COMPLETED) 1,000 mL, intravenous, at 1,000 mL/hr, Administer over 1 Hours, Once, On Wed04/25/19 at 2108, For 1 dose 2209 (New Bag - Provider: Genie Whiting RN - Comment: Pt has poor vascular access sites)2349 (Stopped - Provider: Magdalena Mark RN) sodium chloride 0.9% bolus 1,000 mL (COMPLETED) 1,000 mL, intravenous, Once, On Wed04/26/19 at 0245, For 1 dose 0237 (New Bag - Provider: Delia Welsh RN) Continuous Medication Order 04/24/2019 04/25/2019 04/26/2019 dextrose 5% infusion 100 mL/hr, intravenous, Continuous, Starting on Wed04/26/19 at 0115, Start when blood glucose less than 250 mg/dL and decrease rate of previous IV fluid infusion order. Notify MD when blood glucose less than 250 mg/dL and adjusting IV fluids. 0053 (New Bag - Provider: Delia Welsh, MARY)1020 (New Bag - Provider: Kanchan Loaiza, MARY) insulin regular (HumuLIN R, NovoLIN R) 100 Units in sodium chloride 0.9% 100 mL (1 Units/mL) infusion 0-30 Units/hr (0-30 mL/hr), 1 units/mL, intravenous, Titrated, Starting on Wed04/25/19 at 2108, Until Wed04/26/19 at 2219, Indications: Hyperglycemia, Desired Range (mg/dL): 130-180 general patients, Multiplier: 0.01, Adjust rate per GlucoStabilizer program for dka order When new IV tubing is used, completely prime the tubing. Once primed, waste an additional 20 ml of insulin infusion using the IV pump prior to connecting to patient., Routine 2230 (New Bag - Provider: Genie Whiting RN) 0025 (Stopped - Provider: Delia Welsh RN - Comment: per glucostabilizer)0316 (Restarted - Provider: Delia Welsh RN)0418 (Rate/Dose Change - Provider: Delia Welsh RN)0522 (Rate/Dose Change - Provider: Delia Welsh RN)0630 (Rate/Dose Change - Provider: Delia Welsh RN)0734 (Rate/Dose Change - Provider: Kanchan Loaiza, MARY)0832 (Rate/Dose Change - Provider: Kanchan Loaiza, MARY)0938 (Rate/Dose Change - Provider: Kanchan Loaiza, RN)1040 (Rate/Dose Change - Provider: Kanchan Loaiza, MARY)1134 (Hold - Provider: Kanchan Loaiza, MARY - Reason: Other - Comment: per glucostabilizer)1431 (Restarted - Provider: Kanchan Loaiza, MARY) sodium chloride 0.45% infusion 150 mL/hr, intravenous, Continuous, Starting on Wed04/26/19 at 0115, Decrease rate to 100 mL/hr when blood glucose less than 250 mg/dL. 0053 (New Bag - Provider: Delia Welsh RN - Comment: per order)1238 (New Bag - Provider: Kanchan Loaiza, MARY) PRN Medication Order 04/24/2019 04/25/2019 04/26/2019 acetaminophen (TYLENOL) tablet 650 mg 650 mg, oral, Every 4 hours PRN, 1st line for pain, Starting on Wed04/26/19 at 0034, Indications: Pain dextrose (D10W) 10% bolus 1-500 mL 1-500 mL, intravenous, at 2-2,000 mL/hr, Administer over 15-30 Minutes, As needed, blood glucose less than 70 mg/dL, Starting on Wed04/25/19 at 2107, Dose as determined by GlucoStabilizer dka order. 25 gm = 250 mL 50 gm = 500 mL, Indications: Hypoglyemia dextrose (D10W) 10% bolus 250 mL(Linked Group 1) 250 mL, intravenous, at 1,000 mL/hr, Administer over 15 Minutes, Every 15 min PRN, blood glucose less than 70 mg/dL and UNABLE to swallow/take PO glucose/juice., Starting on Wed04/26/19 at 0917, After treatment for hypoglycemia, recheck BG followed [...] glucose less than 70 mg/dL, Starting on Wed04/26/19 at 0917, If patient is alert and able to [...] unable to take PO glucose/jiuce., Starting on Wed04/26/19 at 0917, After Glucagon is administered, position patient on [...] for each episode of hypoglycemia., Indications: Hypoglycemia insulin regular bolus from bag 1-10 Units 1-10 Units, intravenous, As needed, hyperglycemia, Starting on Wed04/25/19 at 2107, Bolus per GlucoStabilizer dka order., Indications: Hyperglycemia ondansetron (ZOFRAN) injection 4 mg(Linked Group 2) 4 mg, intravenous, Administer over 2 Minutes, Every 6 hours PRN, nausea, vomiting, if not tolerating PO, Starting on Wed04/26/19 at 0034, Indications: Nausea and Vomiting ondansetron ODT (ZOFRAN-ODT) disintegrating tablet 4 mg(Linked Group 2) 4 mg, oral, Every 6 hours PRN, nausea, vomiting, Starting on Wed04/26/19 at 0034, Indications: Nausea and Vomiting oxyCODONE (ROXICODONE) tablet 5 mg 5 mg, oral, Every 4 hours PRN, 2nd line for pain, Starting on Wed04/26/19 at 0034, May administer 1 hour after 1st line agent for uncontrolled or increasing pain., Indications: Pain potassium chloride 40 mEq in sodium chloride 0.9% 500 mL IVPB 40 mEq, intravenous, at 130 mL/hr, Administer over 4 Hours, Every 4 hours PRN, K less than 3.5 mmol/L, Starting on Wed04/26/19 at 0029, For 12 hours, With peripheral IV access, Indications: hypokalemia Linked Groups Order Group 1: dextrose gel in packet 15 gJump to med 15 g, oral, Every 15 min PRN, low blood sugar, blood glucose less than 70 mg/dL, Starting on Wed04/26/19 at 0917, If patient is alert and able to [...] UNABLE to swallow/take PO glucose/juice., Starting on Wed04/26/19 at 0917, After treatment for hypoglycemia, recheck BG followed [...] 6 hours PRN, nausea, vomiting, Starting on Wed04/26/19 at 0034, Indications: Nausea and Vomiting Or ondansetron (ZOFRAN) injection 4 mgJump to med 4 mg, intravenous, Administer over 2 Minutes, Every 6 hours PRN, nausea, vomiting, if not tolerating PO, Starting on Wed04/26/19 at 0034, Indications: Nausea and Vomiting documented in this encounter Orders Medications Ordered That Evan ht Not Have Been Administered Count Last Ordered Date First Ordered Date acetaminophen (TYLENOL) tablet 650 mg 1 dextrose (D10W) 10% bolus 250 mL 1 04/26/20 19 dextrose gel in packet 15 g 1 04/26/2019 glucagon injection 1 mg 1 04/26/2019 insulin glargine (LANTUS,BAS AGLAR) pen injection 20 Units 1 04/26/2019 insulin lispro (HumaLOG) pen injection 1-4 Units 1 04/26/2019 insulin lispro (HumaLOG) pen injection 1-7 Units 1 04/26/2019 insulin lispro (HumaLOG) pen injection 6 Units 1 04/26/2019 magnesium sulfate 2 g/50 mL in water (premix) 2 g 1 04/26/2019 metoclopramide (REGLAN) 1 mg /mL oral solution 10 mg 1 04/26/2019 ondansetron (ZOFRAN) injection 4 mg 1 04/26 ondansetron ODT (ZOFRAN-ODT) disintegrating tablet 4 mg 1 04/26/2019 oxyCODONE (ROXICODONE) tablet 5 mg 1 2018 potassium chloride 40 mEq in sodium chloride 0.9% 500 mL IVPB 1 04/26/2019 sodium chloride 0.9% infusion 1 04/26/2019 dextrose (D10W) 10% bolus 1-500 mL 1 2018 insulin regular bolus from bag 1-10 Units 1 04/25/2019 sodium chloride 0.9% bolus 1,000 mL 1 04/25 Lab Orders Without Results Count Last Ordered D ate First Ordered Date POCT GLUCOSE DEVICE 4 04/26/2019 Nursing Count Last Ordered Date First Orde red Date WEIGH PATIENT 1 04/26/2019 NOTIFY PROVIDER (SPECIFY) 3 04/25/2019 NURSING COMMUNICATION 1 04/25/2019 CORE MEASURES Count Last Ordered Date First Ord ered Date REASON FOR NO VTE PROPHYLAXIS AT ADMISSION 1 04/26/2019 ADT Patient Update Count Last Ordered Date Firs t Ordered Date ED IP DECISION TO ADMIT 1 04/25/2019 documented in this encounter Care Teams 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
--- OUTSIDE RECORDS SUMMARY | 2024-05-10 18:40 | XMS_ITS | Encounter Summary ---
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
--- OUTSIDE RECORDS SUMMARY | 2024-05-10 18:40 | XMS_ITS | Encounter Summary ---
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
--- OUTSIDE RECORDS SUMMARY | 2024-05-10 18:40 | XMS_ITS | Encounter Summary ---
Author Organization [facility] Healthcare Address [address] [place] [address] Care Team Providers Care Pill Machine Operator Name Role Phone Carrie Joseph Primary Care Provider + Warren Phillips MD Unavailable [phone] Reason for Visit * Reason Comments Hyperglycemia Encounter Details Date Type Department Care Team (Latest Contact Info) Description 03/23/2019 10:27 PM MANAGER CONTRACT - 03/24/2019 3:14 PM MANAGER CONTRACT Hospital Encounter [facility] ICU [address] [place] [address] Boubacar Harrison MD 1 [facility] # [place] [address] Gio Sewell MD [address] [place] [address] Sanjuanita Enamorado MD 1 [facility] [place] [address] [place] [id number] Diabetic ketoacidosis without coma associated with type 1 diabetes mellitus (CMS/HCC) (Primary Dx) Discharge Disposition: Discharge to home [...] on file Legal Sex Female 3:13 AM MANAGER CONTRACT Gender Identity Not on file Sexual Orientation Not on file documented as of this encounter Last Filed Vital Signs Vital Sign Reading Time Taken Comments Blood Pressure 112/76 03/24/2019 2:00 PM MANAGER CONTRACT Pulse 122 03/24/2019 2:00 PM MANAGER CONTRACT Temperature 36.7 ??C (98.1 ??F) 03/24/2019 12:[address] Respiratory Rate 30 03/24/2019 2:00 PM MANAGER CONTRACT Oxygen Saturation 100% 03/24/2019 2:00 PM MANAGER CONTRACT Inhaled Oxygen Concentration - - Weight 59 kg (130 lb 1.1 oz) 03/24/2019 1:00 AM MANAGER CONTRACT Height 154.9 cm (5' 1 ) 03/24/2019 1:00 AM MANAGER CONTRACT Body Mass Index 24.58 03/24/2019 1:00 AM MANAGER CONTRACT documented in this encounter Discharge Diagnoses Diagnosis Type 1 diabetes mellitus with ketoacidosis without coma (HCC) - TYPE 1 DIABETES MELLITUS WITH KETOACIDOSIS WITHOUT COMA 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 (HCC) - TYPE 1 DIABETES MELLITUS WITH DIABETIC AUTONOMIC (POLY)NEUROPATHY Gastroparesis - GASTROPARESIS Dehydration - DEHYDRATION nursing home (current) use of insulin (HCC) - PRISON (CURRENT) USE OF INSULIN Other disorders of phosphorus metabolism - OTHER DISORDERS OF PHOSPHORUS METABOLISM Major depressive disorder, single episode, unspecified - MAJOR DEPRESSIVE DISORDER, SINGLE EPISODE, UNSPECIFIED documented in this encounter Medications at Time of Discharge insulin lispro (HumaLOG) 100 unit/mL injection Inject under the skin 3 (three) times a day before meals Uses per sliding scale 1 unit per every 7-8 grams of carb max of 50 units per day insulin glargine (LANTUS,BASAGLAR) 100 unit/mL (3 mL) insulin pen Inject 14 Units under the skin daily 11/16/[address] (PROTONIX) 40 mg EC tabletIndications :ulcerative esophagitis Take 1 tablet (40 mg total) by mouth 2 (two) times a day 60 tablet 3 02/16/2019 06/15/2019 documented as of this encounter Discharge Disposition Disposition Code Departure Means Destination Discharge to home or self care documented in this encounter Progress Notes * Lynsey Hurtado - 03/24/2019 3:14 PM CST Nutrition Assessment Reason for Assessment: Initial Nutrition Assessment Encounter Date: 03/24/19 3:24 PM Nutrition Assessment and Plan: Patient is a 23 y.o. female. Admit Dx: DIABETIC KETOACIDOSIS WITHOUT COMA ASSOCIATED WITH TYPE 1 DIABETES MELLITUS ([facility] Admitted on 03/23/2019, current LOS is 1 days. Nutrition Screen What diet do you follow at home?: diabetic Have You Recently Lost Weight Without Trying?: No Poor Oral Intake for Four or More Days Prior to Admission: No Current diet order: Adult Diet Restricted; Consistent Carbohydrate Pt intake is inconsistent. PO intakes: no intakes yet Wt Readings from Last 10 Encounters: 03/24/19 59 kg (130 lb 1.1 oz) 02/16/19 64.7 kg (142 lb 10.2 oz) 02/10/19 56.7 kg (125 lb) 11/10/18 59.3 kg (130 lb 11.7 oz) 11/08/18 56.7 kg (125 lb) 10/07/18 63.1 kg (139 lb 1.8 oz) 05/26/18 55.4 kg (122 lb 2.2 oz) 03/31/18 53 kg (116 lb 13.5 oz) 01/02/18 51.6 kg (113 lb 12.1 oz) 12/07/17 53.1 kg (117 lb 1 oz) ASSESSMENT: Nutrition Diagnosis 1: Inadequate oral intake Related to: Physiologic issue, Vomiting, Nausea, [place] appetite Evidenced by: Physical finding ?? Interventions: [place] diet preferences within the limits of nutrition care order, Meals and snacks ?? Monitoring and Evaluation: Blood glucoses, Discharge plans, I/O, Labs, Plan of care, PO intake ?? Goals: Adequate nutrition to meet estimated needs by next assessment ? Estimated needs: ?? Total Kcal/kg Estimated Needs : 1652 based on Kcal/k. Type of Weight Used for Estimated Kcals: Current ?? MSJ Total Energy Needs: 1853.28 kcal using Stress Factor: 1.2 Activity Factor: 1.2 ?? DEBORAH State Total Energy Needs + Fever Factor: 1853.28 ?? Total Protein Estimated Needs (gm): 59 Protein Needs Based on g/k.0 Type of Weight Used for Estimated Protein : Current. ?? Total Fluid Estimated Needs: 1770 Fluid Needs Based on : 30 ml/kg. Objective Anthropometrics Weight: 59 kg (130 lb 1.1 oz) Admission Weight : 59 kg Weight Change: 2.30 kg (5.07 lbs) IBW/kg (Calculated) : 47.6 kg Height: 154.9 cm (5' 1 ) Weight in (lb) to have BMI = 25: 132 BMI (Calculated): 24.6 BMI Classification: BMI 18.5 - 24.9 Normal Weight 3 Day I/O Summary No intake/output data recorded. Temp: 36.7 ??C (98.1 ??F) Past Medical History: Diagnosis Date ??? Depression ??? Diabetes mellitus (CMS/HCC) ??? HX OTHER MEDICAL 2011 Diabetes mellitus, type 1 ??? Miscarriage Medications and Lab Review: Scheduled Meds: enoxaparin, 40 mg, subcutaneous, Daily-2100 metoclopramide, 5 mg, intravenous, TID AC Continuous Infusions: dextrose 5%, 100 mL/hr insulin regular, 0-30 Units/hr, Last Rate: Stopped (03/24/19 1507) Sodium Date Value Ref Range Status 03/24/2019 135 135 - 145 mmol/L Final Potassium, pl Date Value Ref Range Status 03/24/2019 4.3 3.3 - 4.9 mmol/L Final BUN Date Value Ref Range Status 03/24/2019 11 8 - 25 mg/dL Final Creatinine Date Value Ref Range Status 03/24/2019 0.32 (L) 0.60 - 1.10 mg/dL Final Phosphorus, pl Date Value Ref Range Status 03/24/2019 1.7 (L) 2.3 - 4.5 mg/dL Final Albumin Date Value Ref Range Status 03/23/2019 4.4 3.5 - 5.0 g/dL Final Magnesium Date Value Ref Range Status 03/24/2019 2.1 1.6 - 2.4 mg/dL Final Calcium Date Value Ref Range Status 03/24/2019 8.4 (L) 8.5 - 10.3 mg/dL Final Lab Results Component Value Date HGBA1C 9.4 (H) 10/05/2018 POC Glucose: Results for KARINA MENJIVAR ( ) as of 03/24/2019 15:25 Ref. Range 03/24/2019 08:06 03/24/2019 08:09 03/24/2019 09:56 03/24/2019 11:06 03/24/2019 11:53 03/24/2019 12:55 03/24/2019 13:54 03/24/2019 14:54 Glucose Latest Ref Range: 70 - 199 mg/dL 199 Glucose, POC Latest Ref Range: 71 - 98 mg/dL 147 (H) 172 (H) 159 (H) 154 (H) 171 (H) 183 (H) 223 (H) Nursing Assessment: Bowel Sounds (All Quadrants): Active Teodoro Scale Score: 21 Nutrition Follow-Up : 03/27/19 Lynsey Hurtado, MS RD LDN GER CONTRACT * Kathryn Corrales [facility] - 03/24/2019 7:21 AM CST Electrolyte monitoring performed by pharmacy on labs from 03/24 359 (date & time), Na+=134 K+=3.9 Mg+=2.4 Phos=2.5 Sodium potassium 1 tablet tid x 3 doses replacement ordered. Pharmacy will continue to follow daily. GER CONTRACT * Shirlene Hyde [facility] - 03/24/2019 1:42 AM CST Potassium = 3.4 Give KCL 40meq ivpb x1 per the kcl prn order to give if potassium less than 3.5 GER CONTRACT * Shirlene Hyde [facility] - 03/24/2019 12:58 AM CST An order to initiate electrolyte repletion by pharmacy has been received from Dr. Sewell IV or PO repletion will be ordered [...] daily x3 days, then every other day. GER CONTRACT * Shirlene Hyde [facility] - 03/24/2019 12:58 AM CST An order to initiate electrolyte repletion by pharmacy has been received from Dr. Sewell IV or PO repletion will be ordered [...] daily x3 days, then every other day. GER CONTRACT documented in this encounter H&P Notes * Sanjuanita Enamorado MD - 03/24/2019 11:38 AM CST History and Physical Date of service March 24, 2019 Primary care provider Carrie Joseph SUBJECTIVE HPI: This is a pleasant 23-year-old female, past medical history of uncontrolled diabetes type1, depression, miscarriage, presented to hospital emergency room with complains of nausea vomiting and high blood sugars. Patient states that she was at [facility] for DKA and was discharged from there 4 hours before coming to our hospital emergency room with complains of DKA nausea vomiting. Patient states that she gave her long-acting insulin at home after being discharged from [facility]. She does not remember what was her blood sugar number before discharge. But as soon as she started nauseated and vomiting she knew that she is not doing well and she came to emergency room. In emergency room her anion gap was 25, she could not tolerate anything p.o., she started on insulin and was admitted to ICU for further treatment. Upon admission blood sugar was 312, current blood sugar is 150. Currently patient is not on insulin drip and feeling better. Continues to have elevatedanion gap. She has very brittle diabetes and we need to correct her anion gap. Starting GlucoStabilizer protocol with low-dose insulin and D5 IV. Patient has severe diabetic gastroparesis and she states that she takes Reglan at home. Will start Reglan IV to give her a chance to have at least p.o. Intake so we can follow up with her sugars. Past Medical History: Diagnosis Date ??? Depression [...] of carb 03/23/2019 at Unknown time ??? pantoprazole DR (PROTONIX) 40 mg EC tablet Take 1 tablet (40 mg total) by mouth 2 (two) times aday 60 tablet 3 03/23/2019 at Unknown time No Known Allergies Social [...] edema, dyspnea 6. GI Positive for nausea vomiting Denies: abdominal pain, decreased appetite,, change in bowel habitus, diarrhea, constipation, melena, BRBPR 7. Denies: dysuria, frequency, hematuria, nocturia, urgency 8. Metabolic Denies: cold intolerance, heat intolerance, polyphagia, polydipsia 9. Neurologic Denies: headache, dizziness, seizure, change in mental status, focal weakness, focal numbness 10. Musculoskeletal Denies: myalgia, joint pain, joint redness, joint swelling, extremity pain 11. Hematologic Denies: bleeding, bruising, hematoma, lymphadenopathy, icterus OBJECTIVE Vitals: Arrival Vitals Temp 03/23/19 2225 36.6 ??C (97.8 ??F) Pulse 03/23/19 2225 (!) 156 Resp 03/23/19 2225 16 BP 03/23/19 2225 129/88 SpO2 03/23/19 2225 97 % Temp src 03/23/19 222 Temporal Heart Rate Source 03/24/19 0055 Monitor Patient Position 03/24/19 0530 Lying BP Location 03/24/19 0130 Left arm FiO2 (%) -- 24hr Min/Max: Temp Min: 36.6 ??C (97.8 ??F) Max: 37.1 ??C (98.8 ??F) Pulse Min: 102 Max: 156 BP Min: 91/67 Max: 166/115 Resp Min: 11 Max: 25 SpO2 Min: 97 % Max: 100 % Most Recent : Vitals: 03/24/19 0900 BP: 113/78 Pulse: 105 Resp: 19 Temp: SpO2: 100% Intake/Output Summary (Last 24 hours) at 03/24/2019 1138 Last data filed at 03/24/2019 0815 Gross per 24 hour Intake 1370 ml Output 450 ml Net 920 ml Physical exam: Eyes: EOMI, ZORAIDA, sclare non icteric Neck: supple, no nuchal ridigity, no gross carotid bruits appreciated Pharynx: No gross oral lesion, tongue midline, mucosa moist Lungs CTA Heart: [id number] no murmur or gallop, no friction rub Abd: +BS, Non Tender, Non distended, No gross hepatomegaly Lower Ext: No gross edema Neuro: No new gross deficits appreciated Musculoskeletal: no gross joint erythema, edema, tenderness Genitourinary: no change Skin: No change Lab/Radiology/Diagnostic Review: Recent Results (from the past 24 hour(s)) POCT glucose Collection Time: 03/23/19 10:47 PM Result Value Ref Range Glucose, POC 283 (H) 71 - 98 mg/dL Blood gas, arterial Collection Time: 03/23/19 11:03 PM Result Value Ref Range pH, Art POC 7.42 7.35 - 7.45 PCO2, Arterial 29 (L) 35 - 45 mmHg PO2, Arterial 103 83 - 108 mmHg HCO3 Art (Calculated) 19 (L) 20 - 30 mmol/L BE, art -4 mmol/L O2 Sat Art (Measured) 98 (H) 90 - 95 % Sepsis Lactate w/ Reflex Collection Time: 03/23/19 11:03 PM Result Value Ref Range Sepsis Lactate 1.4 0.7 - 2.0 mmol/L CBC with auto differential Collection Time: 03/23/19 11:08 PM Result Value Ref Range WBC 5.6 3.8 - 9.9 K/cumm Hgb 14.9 11.9 - 15.5 g/dL Hct 42.1 35.6 - 45.5 % Plt 407 (H) 150 - 400 K/cumm MPV 8.6 (L) 9.1 - 12.3 fL RBC 5.18 3.90 - 5.20 M/cumm MCV 81.3 81.3 - 96.4 fL MCH 28.8 27.1 - 33.3 pg MCHC 35.4 32.3 - 35.7 g/dL RDW CV 13.1 11.1 - 14.9 % RDW SD 38.5 35.7 - 48.1 fL NRBC abs 0.00 0.00 - 0.01 K/cumm Comprehensive metabolic panel Collection Time: 03/23/19 11:08 PM Result Value Ref Range Sodium 133 (L) 135 - 145 mmol/L Potassium, pl 3.4 3.3 - 4.9 mmol/L Chloride 91 (L) 97 - 110 mmol/L CO2 17 (L) 22 - 32 mmol/L Anion gap 25 (H) 2 - 15 mmol/L BUN 15 8 - 25 mg/dL Creatinine 0.51 (L) 0.60 - 1.10 mg/dL Glucose 312 (H) 70 - 199 mg/dL Calcium 9.5 8.5 - 10.3 mg/dL Bilirubin, total 0.9 0.1 - 1.2 mg/dL Protein, pl 7.4 6.5 - 8.5 g/dL Albumin 4.4 3.5 - 5.0 g/dL Alk phos 99 40 - 130 Units/L ALT 18 7 - 45 Units/L AST 16 10 - 45 Units/L Lipase Collection Time: 03/23/19 11:08 PM Result Value Ref Range Lipase 8 (L) 10 - 99 Units/L Differential, auto Collection Time: 03/23/19 11:08 PM Result Value Ref Range Neutrophil abs 3.2 1.7 - 6.5 K/cumm Imm gran abs 0.1 0.0 - 0.1 K/cumm Lymphocyte abs 1.6 0.8 - 3.3 K/cumm Monocyte abs 0.7 0.2 - 0.8 K/cumm Eosinophil abs 0.0 0.0 - 0.5 K/cumm Basophil abs 0.0 0.0 - 0.1 K/cumm Neutrophil pct 57.2 % Imm gran pct 1.8 % Lymphocyte pct 27.9 % Monocyte pct 12.4 % Eosinophil pct 0.2 % Basophil pct 0.5 % eGFR Collection Time: 03/23/19 11:08 PM Result Value Ref Range GFR 136 mL/min/1.73 m2 POCT glucose Collection Time: 03/24/19 12:25 AM Result Value Ref Range Glucose, POC 220 (H) 71 - 98 mg/dL POCT glucose Collection Time: 03/24/19 1:51 AM Result Value Ref Range Glucose, POC 236 (H) 71 - 98 mg/dL POCT glucose Collection Time: 03/24/19 2:47 AM Result Value Ref Range Glucose, POC 243 (H) 71 - 98 mg/dL Basic metabolic panel Collection Time: 03/24/19 3:59 AM Result Value Ref Range Sodium 134 (L) 135 - 145 mmol/L Potassium, pl 3.9 3.3 - 4.9 mmol/L Chloride 99 97 - 110 mmol/L CO2 14 (L) 22 - 32 mmol/L Anion gap 22 (H) 2 - 15 mmol/L BUN 12 8 - 25 mg/dL Creatinine 0.39 (L) 0.60 - 1.10 mg/dL Glucose 248 (H) 70 - 199 mg/dL Calcium 8.3 (L) 8.5 - 10.3 mg/dL Magnesium Collection Time: 03/24/19 3:59 AM Result Value Ref Range Magnesium 2.4 1.6 - 2.4 mg/dL Phosphorus Collection Time: 03/24/19 3:59 AM Result Value Ref Range Phosphorus, pl 2.5 2.3 - 4.5 mg/dL eGFR Collection Time: 03/24/19 3:59 AM Result Value Ref Range GFR 149 mL/min/1.73 m2 POCT glucose Collection Time: 03/24/19 4:02 AM Result Value Ref Range Glucose, POC 208 (H) 71 - 98 mg/dL POCT glucose Collection Time: 03/24/19 6:20 AM Result Value Ref Range Glucose, POC 167 (H) 71 - 98 mg/dL POCT glucose Collection Time: 03/24/19 8:06 AM Result Value Ref Range Glucose, POC 147 (H) 71 - 98 mg/dL Basic metabolic panel Collection Time: 03/24/19 8:09 AM Result Value Ref Range Sodium 135 135 - 145 mmol/L Potassium, pl 4.3 3.3 - 4.9 mmol/L Chloride 100 97 - 110 mmol/L CO2 14 (L) 22 - 32 mmol/L Anion gap 21 (H) 2 - 15 mmol/L BUN 11 8 - 25 mg/dL Creatinine 0.32 (L) 0.60 - 1.10 mg/dL Glucose 199 70 - 199 mg/dL Calcium 8.4 (L) 8.5 - 10.3 mg/dL Magnesium Collection Time: 03/24/19 8:09 AM Result Value Ref Range Magnesium 2.1 1.6 - 2.4 mg/dL Phosphorus Collection Time: 03/24/19 8:09 AM Result Value Ref Range Phosphorus, pl 1.7 (L) 2.3 - 4.5 mg/dL eGFR Collection Time: 03/24/19 8:09 AM Result Value Ref Range GFR 159 mL/min/1.73 m2 Urinalysis reflex to microscopic and culture Urine Collection Time: 03/24/19 8:15 AM Result Value Ref Range Color, ur Yellow Yellow Clarity, ur Clear Clear Specific gravity, ur 1.030 (H) 1.010 - 1.025 pH, urine 6.0 Protein, ur ql Negative Negative Glucose, ur ql 3+ (A) Negative Ketones, ur 4+ (A) Negative Bilirubin, ur Negative Negative Blood, ur Negative Negative Urobilinogen, ur 0.2 mg/dL Nitrite, ur Negative Negative Leukocyte esterase, ur Negative Negative UA reflex comment Reflex conditions for microscopic UA and culture not met. POCT glucose Collection Time: 03/24/19 9:56 AM Result Value Ref Range Glucose, POC 172 (H) 71 - 98 mg/dL POCT glucose Collection Time: 03/24/19 11:06 AM Result Value Ref Range Glucose, POC 159 (H) 71 - 98 mg/dL Current Facility-Administered Medications Medication Dose Route Frequency Provider Last Rate Last Dose ??? acetaminophen (TYLENOL) tablet 650 mg 650 mg oral Q4H PRN Sanjuanita Enamorado MD ??? dextrose (D10W) 10% bolus 1-500 mL 1-500 mL intravenous PRN Sanjuanita Enamorado MD ??? enoxaparin (LOVENOX) syringe 40 mg 40 mg subcutaneous Daily-2100 Sanjuanita Enamorado MD ??? insulin regular bolus from bag 1-10 Units 1-10 Units intravenous PRN Sanjuanita Enamorado MD ??? metoclopramide (REGLAN) injection 5 mg 5 mg intravenous TID AC Sanjuanita Enamorado MD ??? ondansetron ODT (ZOFRAN-ODT) disintegrating tablet 4 mg 4 mg oral Q6H PRN Sanjuanita Enamorado MD Or ??? ondansetron (ZOFRAN) injection 4 mg 4 mg intravenous Q6H PRN Sanjuanita Enamorado MD ??? oxyCODONE (ROXICODONE) tablet 5 mg 5 mg oral Q4H PRN Sanjuanita Enamorado MD ??? sodium phosphate 20 mmol in sodium chloride 0.9% 250 mL IVPB 20 mmol intravenous Once Sanjuanita Enamorado MD A/P 1. DKA, this is the recurrent any very frequent recurrent problem for this patient. Patient has a very brittle type 1 diabetes. She sees a a english as a second language teacher and she thinks that that she is going to go back to insulin pump again which was discontinued related to her . They are in the process of verifying with insurance company according to the patient. Patient's blood sugar is much betterbut she still has elevation of anion gap. I would like to continue fluids, insulin, D5 and treat her with IV Reglan. 2. Hypophosphatemia she is on electrolyte protocol and will replacing. 3. Diabetic gastroparesis, this is significant and she needs to take her Reglan. 4. Dehydration, will continue IV fluids. 5. Nausea and vomiting, present on admission, resolved, most likely related to diabetic gastroparesis. Code status full code Anticipated length of stay to exceed 2 midnight Moderate complexity Spent 50 minutes Nausea and vomiting Dehydration Diabetic gastroparesis (CMS/HCC) Hypophosphatemia Diabetic ketoacidosis without coma associated with type 1 diabetes mellitus (CMS/HCC) Sanjuanita Enamorado MD Date of Service: 03/24/2019 GER CONTRACT documented in this encounter Nursing Notes * Juice Vargas RN - 03/24/2019 3:00 PM CST Pt desires to leave AMA. Explained the disease process and risks of leaving. Dr. Enamorado notified. GER CONTRACT documented in this encounter ED Notes * Boubacar Harrison MD - 03/23/2019 10:46 PM CST HPI Chief Complaint Patient presents with ??? Hyperglycemia Patient is a 23-year-old female with a history of type 1 diabetes, DKA, esophagitis, depression, presents emergency room complaining of nausea vomiting which began after she was discharged from another outside hospital earlier today-where she was admitted for DKA. Patient denies any diarrhea. Patient denies any fevers or chills. Patient denies any current pain-no headache chest pain or abdominal pain. Patient denies any cough or shortness of breath. There are no urinary symptoms or flank pain. There is no aggravating or alleviating factors. There is no other complaints of further review of symptoms negative Patient History Patient Active Problem List Diagnosis Date Noted ??? Diabetic ketoacidosis without coma associated with type 1 diabetes mellitus (CMS/HCC) ??? Esophagitis 02/15/2019 ??? Diabetic gastroparesis (CMS/HCC) 02/14/2019 ??? Lactic acidosis 02/11/2019 ??? Depression 02/11/2019 ??? Hematemesis 02/11/2019 ??? Bilious vomiting with nausea 02/10/2019 ??? Hypokalemia 11/08/2018 ??? Hyperemesis gravidarum with metabolic disturbance 11/08/2018 ??? Less than 8 weeks gestation of ??? Sepsis due to gram-negative UTI (CMS/HCC) 05/27/2018 ??? Type 1 diabetes mellitus with ketoacidosis without coma (CMS/HCC) ??? Hyperglycemia ??? Nausea and vomiting 01/02/2018 ??? Dehydration 01/02/2018 ??? Metabolic alkalosis 01/02/2018 ??? Uncontrolled type 1 diabetes mellitus with hyperglycemia (CMS/HCC) 01/02/2018 ??? Ketonuria 01/02/2018 ??? Thrombocytosis (CMS/HCC) 01/02/2018 ??? Gastroenteritis ??? Sinus tachycardia ??? [...] are negative. Physical Exam ED Triage Vitals [03/23/195] Temp Pulse Resp BP SpO2 36.6 ??C (97.8 ??F) (!) 156 16 129/88 97 % Temp src Heart Rate Source Patient Position BP Location FiO2 (%) Temporal -- -- -- -- Physical Exam Vitals signs and nursing note reviewed. Constitutional: Appearance: She is well-developed. She is not ill-appearing. HENT: Head: Normocephalic and atraumatic. Mouth/Throat: Mouth: Mucous membranes are moist. Pharynx: Oropharynx is clear. Eyes: Conjunctiva/sclera: Conjunctivae normal. Neck: Musculoskeletal: Normal range of motion and neck supple. Cardiovascular: Rate and Rhythm: Regular rhythm. Tachycardia present. Pulses: Normal pulses. Heart sounds: Normal heart sounds. Pulmonary: Effort: Pulmonary effort is normal. No respiratory distress. Breath sounds: Normal breath sounds. Abdominal: General: Bowel sounds are normal. There is no distension. Palpations: Abdomen is soft. Tenderness: There is no tenderness. There is no guarding. Musculoskeletal: Normal range of motion. Skin: General: Skin is warm and dry. Capillary Refill: Capillary refill takes less than 2 seconds. Neurological: General: No focal deficit present. Mental Status: She is alert and oriented to person, place, and time. Psychiatric: Thought Content: Thought content normal. [facility] ED Course as of Mar 24 16 Time: 03/24 14 Comment: Spoke to the hospitalist, agrees on admission on glucose stabilizer By: Boubacar Harrison MD Diabetic ketoacidosis without coma associated with type 1 diabetes mellitus ([facility]) Boubacar Harrison MD 03/24/1915 GER CONTRACT * Renea Martínez RN - 03/23/2019 10:23 PM CST Pt states that she is in DKA. Pt is a Type 1 diabetic. Pt states that she was just discharge from [facility] after being admitted for DKA. Pt reports N/V. GER CONTRACT documented in this encounter Miscellaneous Notes * Plan of Care - Kim Adams RN - 03/24/2019 5:05 AM CST Problem: Health Behavior: Goal: Understanding of discharge needs will improve Outcome: Progressing Problem: Fluid Volume: Goal: Ability to maintain a balanced intake and output will improve Outcome: Progressing Problem: Physical Regulation: Goal: Complications related to the disease process, condition or treatment will be avoided or minimized Outcome: Progressing Goal: Diagnostic test results will improve Outcome: Progressing Goals: Clinical Goals for the Shift: VS stable, improved labs, stable blood sugars, free from N/V, rest, Maintain comfort and safety Summary: Heart rate improving blood sugars improved currently 208. Small 50ml emesis x1 Pt resting in intervals, Awaiting am lab results. Comfort and safety maintained GER CONTRACT documented in this encounter Plan of Treatment Not on file documented as of this encounter Procedures Procedure Name Priority Date/Time Associated Diagnosis Comments POCT GLUCOSE DEVICE Routine 03/24/2019 2 :54 PM MANAGER CONTRACT POCT GLUCOSE DEVICE Routine 03/24/2019 1 :54 PM MANAGER CONTRACT POCT GLUCOSE DEVICE Routine 03/24/2019 1 2:55 PM MANAGER CONTRACT POCT GLUCOSE DEVICE Routine 03/24/2019 1 1:53 AM MANAGER CONTRACT POCT GLUCOSE DEVICE Routine 03/24/2019 1 1:06 AM MANAGER CONTRACT POCT GLUCOSE DEVICE Routine 03/24/2019 9 :56 AM MANAGER CONTRACT URINALYSIS AND REFLEX TO MICROSCOPIC AND CULTURE STAT 03/24/2019 8:15 AM MANAGER CONTRACT EGFR Timed 03/24/2019 8:09 AM MANAGER CONTRACT PHOSPHORUS Timed 03/24/2019 8:09 AM MANAGER CONTRACT MAGNESIUM Timed 03/24/2019 8:09 AM MANAGER CONTRACT BASIC METABOLIC PANEL Timed 03/24/2019 8:09 AM MANAGER CONTRACT POCT GLUCOSE DEVICE Routine 03/24/2019 8 :06 AM MANAGER CONTRACT POCT GLUCOSE DEVICE Routine 03/24/2019 6 :20 AM MANAGER CONTRACT POCT GLUCOSE DEVICE Routine 03/24/2019 4 :02 AM MANAGER CONTRACT EGFR Timed 03/24/2019 3:59 AM MANAGER CONTRACT PHOSPHORUS Timed 03/24/2019 3:59 AM MANAGER CONTRACT MAGNESIUM Timed 03/24/2019 3:59 AM MANAGER CONTRACT BASIC METABOLIC PANEL Timed 03/24/2019 3:59 AM MANAGER CONTRACT POCT GLUCOSE DEVICE Routine 03/24/2019 2 :47 AM MANAGER CONTRACT POCT GLUCOSE DEVICE Routine 03/24/2019 1 :51 AM MANAGER CONTRACT INFECTION PREVENTION MRSA ONLY (STAPHYLOCOCCUS AUREUS) CULTURE STAT 03/24/2019 12:39 AM MANAGER CONTRACT POCT GLUCOSE DEVICE Routine 03/24/2019 1 2:25 AM MANAGER CONTRACT ECG 12-LEAD STAT 03/23/2019 11:19 PM MANAGER CONTRACT EGFR STAT 03/23/2019 11:08 PM MANAGER CONTRACT DIFFERENTIAL AUTO STAT 03/23/2019 11: 08 PM MANAGER CONTRACT CBC WITH AUTO DIFFERENTIAL STAT 03/23/2019 11:08 PM MANAGER CONTRACT LIPASE STAT 03/23/2019 11:08 PM MANAGER CONTRACT COMPREHENSIVE METABOLIC PANEL STAT 03/23/2019 11:08 PM MANAGER CONTRACT SEPSIS LACTATE WITH REFLEX STAT 03/23/2019 11:03 PM MANAGER CONTRACT BLOOD GAS, ARTERIAL STAT 03/23/2019 1 1:03 PM MANAGER CONTRACT POCT GLUCOSE DEVICE Routine 03/23/2019 1 0:47 PM MANAGER CONTRACT documented in this encounter Results * (ABNORMAL) POCT glucose (03/24/2019 2:54 PM MANAGER CONTRACT) Glucose, POC 223(H) 71 - 98 mg/dL TOMY SAHU (VASHTI) Blood specimen (specimen) 03/24/2019 2:54 PM MANAGER CONTRACT 03/24/2019 2:54 PM MANAGER CONTRACT Sanjuanita Enamorado MD LAB POCT ORDERABLES - DEVICE Final Result TOMY SAHU (BRANDON) 1 [facility] [employer] [place] [address] * (ABNORMAL) POCT glucose (03/24/2019 1:54 PM MANAGER CONTRACT) Glucose, POC 183(H) 71 - 98 mg/dL TOMY SAHU (VASHTI) Blood specimen (specimen) 03/24/2019 1:54 PM MANAGER CONTRACT 03/24/2019 1:54 PM MANAGER CONTRACT Sanjuanita Enamorado MD LAB POCT ORDERABLES - DEVICE Final Result TOMY SAHU (VASHTI) 1 [facility] [place] [address] * (ABNORMAL) POCT glucose (03/24/2019 12:55 PM MANAGER CONTRACT) Glucose, POC 171(H) 71 - 98 mg/dL [facility] (VASHTI) Blood specimen (specimen) 03/24/2019 12:55 PM MANAGER CONTRACT 03/24/2019 12:55 PM MANAGER CONTRACT Sanjuanita Enamorado MD LAB POCT ORDERABLES - DEVICE Final Result Performing Organization Address [facility] Co de Phone Number TOMY SAHU (VASHIT) 1 [facility] [place] [address] * (ABNORMAL) POCT glucose (03/24/2019 11:53 AM MANAGER CONTRACT) Glucose, POC 154(H) 71 - 98 mg/dL TOMY [facility] (VASHTI) Blood specimen (specimen) 03/24/2019 11:53 AM MANAGER CONTRACT 03/24/2019 11:53 AM MANAGER CONTRACT us Sanjuanita Enamorado MD LAB POCT ORDERABLES - DEVICE Final Result Performing Organization Address [facility] Co de Phone Number TOMY SAHU (VASHTI) 1 [facility] [place] [address] * (ABNORMAL) POCT glucose (03/24/2019 11:06 AM MANAGER CONTRACT) Glucose, POC 159(H) 71 - 98 mg/dL [facility] (VASHTI) Blood specimen (specimen) 03/24/2019 11:06 AM MANAGER CONTRACT 03/24/2019 11:06 AM MANAGER CONTRACT Sanjuanita Enamorado MD LAB POCT ORDERABLES - DEVICE Final Result Performing Organization Address City/[facility] Co de Phone Number TOMY SAHU (VASHTI) 1 [facility] [place] [address] * (ABNORMAL) POCT glucose (03/24/2019 9:56 AM MANAGER CONTRACT) Glucose, POC 172(H) 71 - 98 mg/dL TOMY [facility] (VASHTI) Blood specimen (specimen) 03/24/2019 9:56 AM MANAGER CONTRACT 03/24/2019 9:56 AM MANAGER CONTRACT us Sanjuanita Enamorado MD LAB POCT ORDERABLES - DEVICE Final Result [facility] (VASHTI) 1 [facility] [place] [address] * (ABNORMAL) Urinalysis reflex to microscopic and culture Urine (03/24/2019 8:15 AM MANAGER CONTRACT) Color, ur Yellow Yellow [facility] (VASHTI) Clarity, ur Clear Clear [facility] (AVSHTI) Specific gravity, ur 1.030(H) 1.010 - 1.025 [facility] (VASHTI) pH, urine 6.0 [facility] [...] culture not met. [facility] (VASHTI) Urine 03/24/2019 8:15 AM MANAGER CONTRACT 03/24/2019 8:21 AM MANAGER CONTRACT Narrative [facility] (VASHTI) - 03/24/2019 8:35 AM MANAGER CONTRACT ?? Urine pH is affected by diet, medications, systemic acid-base disturbances, and renal tubular function. ??pH may affect urinary stone formation. ??For example, urine pH below 6.0 may help reduce the tendency for calcium phosphate stones and pH greater than 6.0 may reduce the tendency for uric acid stone formation. Source: [employer]. Last revised 05-13-2017 Urine pH is affected by diet, medications, systemic acid-base disturbances, and renal tubular function. ??pH may affect urinary stone formation. ??For example, urine pH below 6.0 may help reduce the tendency for calcium phosphate stones and pH greater than 6.0 may reduce the tendency for uric acid stone formation. Source: [employer]. Last revised 05-13-2017 us Boubacar Harrison MD LAB MICROBIOLOGY - GENERAL OR DERABLES Final Result Performing Organization Address [facility] Co de Phone Number TOMY SAHU (VASHTI) 1 [facility] [place] [address] * eGFR (03/24/2019 8:09 AM MANAGER CONTRACT) eGFR 159 mL/min/1.7 3 m2 TOMY SAHU (BRANDON) Comment: Interpretive Data Reference Interval Normal ?>/= 90 mL/min/1.73m2 Mildly decreased* ? 60 - 89 mL/min/1.73m2 Mildly to moderately decreased ?45 - 59 mL/min/1.73m2 Moderately to severely decreased ??30 - 44 mL/min/1.73m2 Severely decreased ?15 - 29 mL/min/1.73m2 Kidney Failure ?< 15 ??mL/min/1.73m2 *Relative to young adult level If -Yemeni multiply value by 1.16. Estimated glomerular filtration [...] was last reviewed 2015. Blood specimen (specimen) 03/24/2019 8:09 AM MANAGER CONTRACT 03/24/2019 8:23 AM MANAGER CONTRACT us Gio Sewell MD LAB BLOOD ORDERABLES Final Re sult Performing Organization Address City/[facility]/ZIP Co de Phone Number TOMY SAHU (VASHTI) 1 [facility] [place] [address] * (ABNORMAL) Phosphorus (03/24/2019 8:09 AM MANAGER CONTRACT) [facility] Phosphorus, pl 1.7(L) 2.3 - 4.5 mg/dL [facility] (VASHTI) Blood specimen (specimen) 03/24/2019 8:09 AM MANAGER CONTRACT 03/24/2019 8:23 AM MANAGER CONTRACT Sanjuanita Enamorado MD LAB BLOOD ORDERABLES Final Re sult [facility] (VASHTI) 1 [place] [address] * Magnesium (03/24/2019 8:09 AM MANAGER CONTRACT) [facility] Magnesium 2.1 1.6 - 2.4 mg/dL [facility] (VASHTI) Blood specimen (specimen) 03/24/2019 8:09 AM MANAGER CONTRACT 03/24/2019 8:23 AM MANAGER CONTRACT us Sanjuanita Enamorado MD LAB BLOOD ORDERABLES Final Re sult [facility] (VASHTI) 1 [place] [address] * (ABNORMAL) Basic metabolic panel (03/24/2019 8:09 AM MANAGER CONTRACT) [facility] Sodium 135 135 - 145 mmol/L [facility] (VASHTI) Potassium, pl 4.3 3.3 - 4.9 mmol/L [facility] (VASHTI) Chloride 100 97 - 110 mmol/L [facility] (VASHTI) CO2 14(L) 22 - 32 mmol/L [facility] (VASHTI) Anion gap 21(H) 2 - 15 mmol/L [facility] (VASHTI) BUN 11 8 - 25 mg/dL [facility] (V[place]HTI) Creatinine 0.32(L) 0.60 - 1.10 mg/dL [facility] (VASHTI) Glucose 199 70 - 199 mg/dL [facility] (VASHTI) [...] 2017. Calcium 8.4(L) 8.5 - 10.3 mg/dL TOMY SAHU (VASHTI) Blood specimen (specimen) 03/24/2019 8:09 AM MANAGER CONTRACT 03/24/2019 8:23 AM MANAGER CONTRACT Sanjuanita Enamorado MD LAB BLOOD ORDERABLES Final Re sult Performing Organization Address [facility]/ZIP Co de Phone Number TOMY SAHU (VASHTI) 1 [facility] [place] [address] * (ABNORMAL) POCT glucose (03/24/2019 8:06 AM MANAGER CONTRACT) Glucose, POC 147(H) 71 - 98 mg/dL TOMY SAHU (VASHTI) Blood specimen (specimen) 03/24/2019 8:06 AM MANAGER CONTRACT 03/24/2019 8:06 AM MANAGER CONTRACT Sanjuanita Enamorado MD LAB POCT ORDERABLES - DEVICE Final Result TOMY SAHU (VASHTI) 1 [facility] [place] [address] * (ABNORMAL) POCT glucose (03/24/2019 6:20 AM MANAGER CONTRACT) Glucose, POC 167(H) 71 - 98 mg/dL TOMY SAHU (VASHTI) Blood specimen (specimen) 03/24/2019 6:20 AM MANAGER CONTRACT 03/24/2019 6:20 AM MANAGER CONTRACT Gio Sewell MD LAB POCT ORDERABLES - DEVICE Final Result TOMY SAHU (BRANDON) 1 [facility] [place] [address] * (ABNORMAL) POCT glucose (03/24/2019 4:02 AM MANAGER CONTRACT) Glucose, POC 208(H) 71 - 98 mg/dL TOMY SAHU (BRANDON) Blood specimen (specimen) 03/24/2019 4:02 AM MANAGER CONTRACT 03/24/2019 4:02 AM MANAGER CONTRACT Gio Sewell MD LAB POCT ORDERABLES - DEVICE Final Result Performing Organization Address [facility] Co de Phone Number TOMY SAHU (BRANDON) 1 [facility] [place] [address] * eGFR (03/24/2019 3:59 AM MANAGER CONTRACT) eGFR 149 mL/min/1.7 3 m2 TOMY SAHU (BRANDON) Comment: Interpretive Data Reference Interval Normal ?>/= 90 mL/min/1.73m2 Mildly decreased* ? 60 - 89 mL/min/1.73m2 Mildly to moderately decreased ?45 - 59 mL/min/1.73m2 Moderately to severely decreased ??30 - 44 mL/min/1.73m2 Severely decreased ?15 - 29 mL/min/1.73m2 Kidney Failure ?< 15 ??mL/min/1.73m2 *Relative to young adult level If -Yemeni multiply value by 1.16. Estimated glomerular filtration [...] was last reviewed 2015. Blood specimen (specimen) 03/24/2019 3:59 AM MANAGER CONTRACT 03/24/2019 4:19 AM MANAGER CONTRACT Gio Sewell MD LAB BLOOD ORDERABLES Final Re sult Performing Organization Address City/[facility]/ZIP Co de Phone Number TOMY [facility] (BRANDON) 1 [facility] [place] [address] * Phosphorus (03/24/2019 3:59 AM MANAGER CONTRACT) Phosphorus, pl 2.5 2.3 - 4.5 mg/dL TOMY [facility] (BRANDON) Blood specimen (specimen) 03/24/2019 3:59 AM MANAGER CONTRACT 03/24/2019 4:20 AM MANAGER CONTRACT us Sanjuanita Enamorado MD LAB BLOOD ORDERABLES Final Re sult Performing Organization Address [facility] Co de Phone Number [facility]ANDON[facility] 1 [facility] [place] [address] * Magnesium (03/24/2019 3:59 AM MANAGER CONTRACT) Magnesium 2.4 1.6 - 2.4 mg/dL [facility] (BRANDON) Blood specimen (specimen) 03/24/2019 3:59 AM MANAGER CONTRACT 03/24/2019 4:19 AM MANAGER CONTRACT Sanjuanita Enamorado MD LAB BLOOD ORDERABLES Final Re sult Performing Organization Address City/[facility] Co de Phone Number TOMY [facility] (BRANDON) 1 [facility] [place] [address] * (ABNORMAL) Basic metabolic panel (03/24/2019 3:59 AM MANAGER CONTRACT) Sodium 134(L) 135 - 145 mmol/L [facility] (VASHTI) Potassium, pl 3.9 3.3 - 4.9 mmol/L [facility] (VASHTI) Chloride 99 97 - 110 mmol/L [facility] (VASHTI) CO2 14(L) 22 - 32 mmol/L [facility] (VASHTI) Anion gap 22(H) 2 - 15 mmol/L [facility] (VASHTI) BUN 12 8 - 25 mg/dL [facility] (VASHTI) Creatinine 0.39(L) 0.60 - 1.10 mg/dL [facility] (VASHTI) Glucose 248(H) 70 - 199 mg/dL [facility] (VASHTI) [...] 2017. Calcium 8.3(L) 8.5 - 10.3 mg/dL [facility] Blood specimen (specimen) 03/24/2019 3:59 AM MANAGER CONTRACT 03/24/2019 4:19 AM MANAGER CONTRACT us Sanjuanita Enamorado MD LAB BLOOD ORDERABLES Final Re sult TOMY SAHU (VASHTI) 1 [facility] [place] [address] * (ABNORMAL) POCT glucose (03/24/2019 2:47 AM MANAGER CONTRACT) Glucose, POC 243(H) 71 - 98 mg/dL [facility] ([facility] Blood specimen (specimen) 03/24/2019 2:47 AM MANAGER CONTRACT 03/24/2019 2:47 AM MANAGER CONTRACT us Gio Sewell MD LAB POCT ORDERABLES - DEVICE Final Result Performing Organization Address [facility] Co de Phone Number TOMY SAHU (VASHTI) 1 [facility] [place] [address] * (ABNORMAL) POCT glucose (03/24/2019 1:51 AM MANAGER CONTRACT) Glucose, POC 236(H) 71 - 98 mg/dL [facility] (VASHTI) Blood specimen (specimen) 03/24/2019 1:51 AM MANAGER CONTRACT 03/24/2019 1:51 AM MANAGER CONTRACT us Gio Sewell MD LAB POCT ORDERABLES - DEVICE Final Result Performing Organization Address [facility] Co de Phone Number TOMY SAHU (VASHTI) 1 [facility] [place] [address] * MRSA culture Nasal (03/24/2019 12:39 AM MANAGER CONTRACT) Report Final Report: Negative TOMY SAHU (VASHTI) Comment:Testing performed by : [facility], 1 [place] [address] Nasal 03/24/2019 12:3 9 AM MANAGER CONTRACT 03/24/2019 2:02 AM MANAGER CONTRACT Narrative TOMY LUIS ALBERTO (VASHTI) - 03/25/2019 6:54 AM MANAGER CONTRACT Testing performed by [facility] ([phone]). us Boubacar Harrison MD LAB MICROBIOLOGY - GENERAL OR DERABLES Final Result Performing Organization Address [facility] Co de Phone Number TOMY SAHU (VASHTI) 1 [facility] [place] [address] * (ABNORMAL) POCT glucose (03/24/2019 12:25 AM MANAGER CONTRACT) Glucose, POC 220(H) 71 - 98 mg/dL TOMY SAHU (VASHTI) Comment:Glu2: RN/ Notified Blood specimen (specimen) 03/24/2019 12:25 AM MANAGER CONTRACT 03/24/2019 12:25 AM MANAGER CONTRACT us Gio Sewell MD LAB POCT ORDERABLES - DEVICE Final Result Performing Organization Address [facility] Co de Phone Number TOMY LUIS ALBERTO (VASHTI) 1 [facility] [place] [address] * ECG 12 lead (03/23/2019 11:19 PM MANAGER CONTRACT) 03/23/2019 11:1 9 PM MANAGER CONTRACT Narrative [facility] - 03/24/2019 7:16 AM MANAGER CONTRACT Vent Rate: 135 bpm RR Interval: 443 msec UT Interval: 135 msec QRS Duration: 72 msec QT Interval: 297 msec QTC Interval: 376 msec P-R-T Buchanan: 75 - 103 - 19 degrees SINUS TACHYCARDIA RIGHT ATRIAL ENLARGEMENT RIGHT AXIS DEVIATION ??[QRS AXIS > 100] NONSPECIFIC ST \T\ T-WAVE ABNORMALITY ABNORMAL ECG Electronically Signed By: Cl Patel MD us Boubacar Harrison MD ECG ORDERABLES Final Result Performing Organization Address [facility] de Phone Number [facility] [employer] [facility] * eGFR (03/23/2019 11:08 PM MANAGER CONTRACT) eGFR 136 mL/min/1.7 3 m2 TOMY SAHU (VASHTI) Comment: Interpretive Data Reference Interval Normal ?>/= 90 mL/min/1.73m2 Mildly decreased* ? 60 - 89 mL/min/1.73m2 Mildly to moderately decreased ?45 - 59 mL/min/1.73m2 Moderately to severely decreased ??30 - 44 mL/min/1.73m2 Severely decreased ?15 - 29 mL/min/1.73m2 Kidney Failure ?< 15 ??mL/min/1.73m2 *Relative to young adult level If -Yemeni multiply value by 1.16. Estimated glomerular filtration [...] was last reviewed 2015. Blood specimen (specimen) 03/23/2019 11:08 PM MANAGER CONTRACT 03/23/2019 11:17 PM MANAGER CONTRACT us Boubacar Harrison MD LAB BLOOD ORDERABLES Final Re sult TOMY [facility] (BRANDON) 1 [facility] [place] [address] * Differential, auto (03/23/2019 11:08 PM MANAGER CONTRACT) Neutrophil abs 3.2 1.7 - 6.5 K/cumm [facility] (VASHTI) Imm gran abs 0.1 0.0 - 0.1 K/cumm [facility] ([place]ASHTI) Lymphocyte abs 1.6 0.8 - 3.3 K/cumm [facility] (VASHTI) Monocyte abs 0.7 0.2 - 0.8 K/cumm [facility] (VASHTI) Eosinophil abs 0.0 0.0 - 0.5 K/cumm [facility] ([place]ASHTI) Basophil abs 0.0 0.0 - 0.1 K/cumm [facility] (VASHTI) Neutrophil pct 57.2 % [facility] (VASHTI) Comment: Interpretive Data Percent cell count reference ranges are not reported, since discordance with absolute values may lead to misinterpretation of CBC data. Current Interpretive Data was last revised on 2017. Imm gran pct 1.8 % [facility] (VASHTI) Comment: Interpretive Data Percent cell count reference ranges are not reported, since discordance with absolute values may lead to misinterpretation of CBC data. Current Interpretive Data was last revised on 2017. Lymphocyte pct 27.9 % [facility] (VASHTI) Comment: Interpretive Data Percent cell count reference ranges are not reported, since discordance with absolute values may lead to misinterpretation of CBC data. Current Interpretive Data was last revised on 2017. Monocyte pct 12.4 % [facility] (VASHTI) Comment: Interpretive Data [...] was last revised on 2017. Basophil pct 0.5 % [facility] (VASHTI) Comment: Interpretive Data Percent cell count reference ranges are not reported, since discordance with absolute values may lead to misinterpretation of CBC data. Current Interpretive Data was last revised on 2017. Blood specimen (specimen) 03/23/2019 11:08 PM MANAGER CONTRACT 03/23/2019 11:17 PM MANAGER CONTRACT Boubacar Harrison MD LAB BLOOD ORDERABLES Final Re sult Performing Organization Address City/[facility]/ZIP Co de Phone Number TOMY SAHU (VASHTI) 1 [facility] [place] [address] * (ABNORMAL) Lipase (03/23/2019 11:08 PM MANAGER CONTRACT) Lipase 8(L) 10 - 99 Units/L TOMY SAHU (VASHTI) Blood specimen (specimen) 03/23/2019 11:08 PM MANAGER CONTRACT 03/23/2019 11:17 PM MANAGER CONTRACT us Boubacar Harrison MD LAB BLOOD ORDERABLES Final Re sult Performing Organization Address City/[facility]/ZIP Co de Phone Number TOMY SAHU (VASHTI) 1 [facility] [place] [address] * (ABNORMAL) Comprehensive metabolic panel (03/23/2019 11:08 PM MANAGER CONTRACT) Sodium 133(L) 135 - 145 mmol/L TOMY SAHU (VASHTI) Potassium, pl 3.4 3.3 - 4.9 mmol/L [facility] (VASHTI) Chloride 91(L) 97 - 110 mmol/L [facility] (VASHTI) [...] 5.0 g/dL [facility] (VASHTI) Alk phos 99 40 - 130 Units/L [facility] (VASHTI) ALT 18 7 - 45 Units/L [facility] (VASHTI) AST 16 10 - 45 Units/L [facility] (VASHTI) Comment:Slightly Hemolyzed S pecimen Blood specimen (specimen) 03/23/2019 11:08 PM MANAGER CONTRACT 03/23/2019 11:17 PM MANAGER CONTRACT us Boubacar Harrison MD LAB BLOOD ORDERABLES Final Re sult [facility] (AVSHTI) 1 [facility] [place] [address] * (ABNORMAL) CBC with auto differential (03/23/2019 11:08 PM MANAGER CONTRACT) WBC 5.6 3.8 - 9.9 K/cumm [facility] (VASHTI) Hgb 14.9 11.9 - 15.5 g/dL [facility] (VASHTI) Hct 42.1 35.6 - 45.5 % [facility] (VASHTI) Plt 407(H) 150 - 400 K/cumm [facility] (VASHTI) MPV 8.6(L) 9.1 - 12.3 fL [facility] ([place]ASHTI) RBC 5.18 3.90 - 5.20 M/cumm [facility] ([place]ASHTI) MCV 81.3 81.3 - 96.4 fL [facility] ([place]ASHTI) MCH 28.8 27.1 - 33.3 pg [facility] (VASHTI) MCHC 35.4 32.3 - 35.7 g/dL [facility] ([place]ASHTI) RDW CV 13.1 11.1 - 14.9 % [facility] ([place]ASHTI) RDW SD 38.5 35.7 - 48.1 fL [facility] NRBC abs 0.00 0.00 - 0.01 K/cumm [facility] (VASHTI) Blood specimen (specimen) 03/23/2019 11:08 PM MANAGER CONTRACT 03/23/2019 11:17 PM MANAGER CONTRACT us Boubacar Harrison MD LAB BLOOD ORDERABLES Final Re sult [facility] (VASHTI) 1 [facility] [place] [address] * Sepsis Lactate w/ Reflex (03/23/2019 11:03 PM MANAGER CONTRACT) Sepsis Lactate 1.4 0.7 - 2.0 mmol/L [facility] ([place]I) Blood specimen (specimen) 03/23/2019 11:03 PM MANAGER CONTRACT 03/23/2019 11:11 PM MANAGER CONTRACT us Boubacar Harrison MD LAB BLOOD ORDERABLES Final Re sult TOMY SAHU (VASHTI) 1 [facility] [place] [address] * (ABNORMAL) Blood gas, arterial (03/23/2019 11:03 PM MANAGER CONTRACT) pH, Art 7.42 7.35 - 7.45 [facility] (VASHTI) PCO2, Arterial 29(L) 35 - 45 mmHg [facility] ([place]ASHTI) PO2, Arterial 103 83 - 108 mmHg [facility] ([place]ASHTI) HCO3 Art (Calculated) 19(L) 20 - 30 mmol/L [facility] (VASHTI) BE, art -4 mmol/L [facility] (VASHTI) Comment: Interpretive Data No Reference Range Established Current Interpretive Data was last revised on 2017 O2 Sat Art (Measured) 98(H) 90 - 95 % [facility] (VASHTI) Blood specimen (specimen) 03/23/2019 11:03 PM MANAGER CONTRACT 03/23/2019 11:08 PM MANAGER CONTRACT Boubacar Harrison MD LAB BLOOD ORDERABLES Final Re sult Performing Organization Address [facility]/ZIP Co de Phone Number TOMY SAHU (BRANDON) 1 [facility] [place] [address] * (ABNORMAL) POCT glucose (03/23/2019 10:47 PM MANAGER CONTRACT) Glucose, POC 283(H) 71 - 98 mg/dL [facility] ([place]ASHTI) Comment:Glu2: RN/ Notified Blood specimen (specimen) 03/23/2019 10:47 PM MANAGER CONTRACT 03/23/2019 10:47 PM MANAGER CONTRACT Notinfile Unknown LAB POCT ORDERABLES - DEVICE F inal Result Performing Organization Address City/[facility]/ZIP Co de Phone Number TOMY SAHU (BRANDON) 1 [facility] [place] [address] documented in this encounter Visit Diagnoses Diagnosis Diabetic ketoacidosis without coma associated with type 1 diabetes mellitus (CMS/HCC) (HCC)- Primary Diabetic ketoacidosis without coma associated with type 1 diabetes mellitus (CMS/HCC) (HCC) Hypophosphatemia Disorders of phosphorus metabolism Nausea and vomiting Nausea with vomiting Dehydration Diabetic gastroparesis (CMS/HCC) (HCC) Type II or unspecified type diabetes mellitus with neurological manifestations, not stated as uncontrolled Sinus tachycardia Other specified cardiac dysrhythmias documented in this encounter Administered Medications Inactive Administered Medications - up to 3 most recent administrations Medication Order MAR Action Action Date Dose Rate Site dextrose (D10W) 10% bolus 1-500 mL 1-500 mL, intravenous, at 2-2,000 mL/hr, Administer over 15-30 Minutes, As needed, blood glucose less than 70 mg/dL, Starting on Wed03/24/19 at 0014, Dose as determined by GlucoStabilizer dka order. 25 gm = 250 mL 50 gm = 500 mL, Indications: HypoglyemiaIndications:Hy poglyemia dextrose 5% infusion 100 mL/hr, intravenous, Continuous, Starting on Wed03/24/19 at 0130, Start when blood glucose less than 250 mg/dL and decrease rate of previous IV fluid infusion order. Notify MD when blood glucose less than 250 mg/dL and adjusting IV fluids., On hold since Wed03/24/2019 at 0701 until manually unheld New Bag 03/24/2019 11:56 AM MANAGER CONTRACT 100 mL/hr 100 mL/hr dextrose 5% infusion 100 mL/hr, intravenous, Continuous, Starting on Wed03/24/19 at 1300 enoxaparin (LOVENOX) syringe 40 mg 40 mg, subcutaneous, Daily (for enoxaparin), First dose on Wed03/24/19 at 2100, Indications: VTE ProphylaxisIndications:VT E Prophylaxis insulin regular (HumuLIN R, NovoLIN R) 100 Units in sodium chloride 0.9% 100 mL (1 Units/mL) infusion 0-30 Units/hr (0-30 mL/hr), 1 units/mL, intravenous, Titrated, Starting on Wed03/24/19 at 0015, Until Wed03/24/19 at 1138, Indications: Hyperglycemia, Desired Range (mg/dL): 130-180 general patients, Multiplier: 0.01, Adjust rate per GlucoStabilizer program for dka order When new IV tubing is used, completely prime the tubing. Once primed, waste an additional 20 ml of insulin infusion using the IV pump prior to connecting to patient., Routine, On hold since Wed03/24/2019 at 0701 until manually unheldIndications:Hypergl ycemia New Bag 03/24/2019 11:57 AM MANAGER CONTRACT 1.9 Units/hr 1.9 mL/hr insulin regular (HumuLIN R, NovoLIN R) 100 Units in sodium chloride 0.9% 100 mL (1 Units/mL) infusion 0-30 Units/hr (0-30 mL/hr), 1 units/mL, intravenous, Titrated, Starting on Wed03/24/19 at 1245, Until Wed03/24/19 at 1914, Indications: Hyperglycemia, Desired Range (mg/dL): 130-180 general patients, Multiplier: 0.02, Adjust rate per GlucoStabilizer program for dka order When new IV tubing is used, completely prime the tubing. Once primed, waste an additional 20 ml of insulin infusion using the IV pump prior to connecting to patient., RoutineIndications:Hyperg lycemia Rate/Dose Change 03/24/2019 1:56 PM MANAGER CONTRACT 4.9 Units/hr 4.9 mL/hr Rate/Dose Change 03/24/2019 12:57 PM MANAGER CONTRACT 3.3 Units/hr 3.3 mL/hr insulin regular bolus from bag 1-10 Units 1-10 Units, intravenous, As needed, hyperglycemia, Starting on Wed03/24/19 at 0014, Bolus per GlucoStabilizer dka order., Indications: HyperglycemiaIndications:Hyperglyc emia magnesium sulfate 2 g/50 mL in water (premix) 2 g 2 g, intravenous, Administer over 60 Minutes, Once, On Wed03/24/19 at 0130, For 1 dose, Do not give if serum Cr greater than 2.5 mg/dL., Indications: Magnesium RepletionIndications:Magnesium Repletion New Bag 03/24/2019 1:51 AM MANAGER CONTRACT 2 g metoclopramide (REGLAN) injection 5 mg 5 mg, intravenous, Administer over 1 Minutes, 3 times daily before meals, First dose on Wed03/24/19 at 1215 Given 03/24/2019 12:03 PM MANAGER CONTRACT 5 mg ondansetron (ZOFRAN) injection 4 mg 4 mg, intravenous, Administer over 2 Minutes, Once, On Nurys 03/23/19 at 2254, For 1 dose, Indications: Nausea, VomitingIndications:Nausea,Vomitin g Given 03/23/2019 11:19 PM MANAGER CONTRACT 4 mg ondansetron (ZOFRAN) injection 4 mg 4 mg, intravenous, Administer over 2 Minutes, Every 6 hours PRN, nausea, vomiting, if not tolerating PO, Starting on Wed03/24/19 at 0106, Indications: Nausea and VomitingIndications:Nausea and Vomiting ondansetron (ZOFRAN) injection 4 mg 4 mg, intravenous, Administer over 2 Minutes, Once, On Wed03/24/19 at 0130, For 1 dose, Indications: Nausea, VomitingIndications:Nausea,Vomitin g Given 03/24/2019 1:17 AM MANAGER CONTRACT 4 mg ondansetron ODT (ZOFRAN-ODT) disintegrating tablet 4 mg 4 mg, oral, Every 6 hours PRN, nausea, vomiting, Starting on Wed03/24/19 at 0106, Indications: Nausea and VomitingIndications:Nausea and Vomiting potassium chloride 40 mEq in sodium chloride 0.9% 500 mL IVPB 40 mEq, intravenous, at 130 mL/hr, Administer over 4 Hours, Every 4 hours PRN, K less than 3.5 mmol/L, Starting on Wed03/24/19 at 0046, For 12 hours, With peripheral IV access, Indications: hypokalemiaIndications:hypokalemia New Bag 03/24/2019 2:54 AM MANAGER CONTRACT 40 mEq 130 mL/hr sodium chloride 0.45% infusion 150 mL/hr, intravenous, Continuous, Starting on Wed03/24/19 at 0130, Decrease rate to 100 mL/hr when blood glucose less than 250 mg/dL. New Bag 03/24/2019 6:51 AM MANAGER CONTRACT 150 mL/hr 150 mL/hr New Bag 03/24/2019 1:10 AM MANAGER CONTRACT 150 mL/hr 150 mL/hr sodium chloride 0.9% bolus 1,000 mL 1,000 mL, intravenous, at 1,000 mL/hr, Administer over 1 Hours, Once, On Nurys 03/23/19 at 2254, For 1 dose New Bag 03/23/2019 11:17 PM MANAGER CONTRACT 1,000 mL 1000 mL/hr sodium phosphate 20 mmol in sodium chloride 0.9% 250 mL IVPB 20 mmol, intravenous, at 42.8 mL/hr, Administer over 6 Hours, Once, On Wed03/24/19 at 1100, For 1 dose, X 1 dose per pharmacy electrolyte replacement protocol for phosphorus = 2.5 New Bag 03/24/2019 11:08 AM MANAGER CONTRACT 20 mmol 42.8 mL/hr documented in this encounter Active and Recently Administered Medications Times are shown in MANAGER CONTRACT. Scheduled Medication Order 03/22/2019 03/23/2019 03/24/2019 enoxaparin (LOVENOX) syringe 40 mg 40 mg, subcutaneous, Daily (for enoxaparin), First dose on Wed03/24/19 at 2100, Indications: VTE Prophylaxis magnesium sulfate 2 g/50 mL in water (premix) 2 g (COMPLETED) 2 g, intravenous, Administer over 60 Minutes, Once, On Wed03/24/19 at 0130, For 1 dose, Do not give if serum Cr greater than 2.5 mg/dL., Indications: Magnesium Repletion 0151 (New Bag - Provider: Kim Adams, MARY) metoclopramide (REGLAN) injection 5 mg 5 mg, intravenous, Administer over 1 Minutes, 3 times daily before meals, First dose on Wed03/24/19 at 1215 1203 (Given - Provid er: Juice Vargas RN) ondansetron (ZOFRAN) injection 4 mg (COMPLETED) 4 mg, intravenous, Administer over 2 Minutes, Once, On Nurys 03/23/19 at 2254, For 1 dose, Indications: Nausea, Vomiting 2319 (Given - Provider: Concepcion Emerson, MARY) ondansetron (ZOFRAN) injection 4 mg (COMPLETED) 4 mg, intravenous, Administer over 2 Minutes, Once, On Wed03/24/19 at 0130, For 1 dose, Indications: Nausea, Vomiting 0117 (Given - Provid er: Kim Adams RN) sodium chloride 0.9% bolus 1,000 mL (COMPLETED) 1,000 mL, intravenous, at 1,000 mL/hr, Administer over 1 Hours, Once, On Nurys 03/23/19 at 2254, For 1 dose 2317 (New Bag - Provider: Concepcion Emerson, MARY) 0050 (Stopped - Provider: Kim Adams RN) sodium phosphate 20 mmol in sodium chloride 0.9% 250 mL IVPB (COMPLETED) 20 mmol, intravenous, at 42.8 mL/hr, Administer over 6 Hours, Once, On Wed03/24/19 at 1100, For 1 dose, X 1 dose per pharmacy electrolyte replacement protocol for phosphorus = 2.5 1108 (New Bag - Provider: Evert Martinez, RN)1157 (Stopped - Provider: Juice Vargas, RN) Continuous Medication Order 03/22/2019 03/23/2019 03/24/2019 dextrose 5% infusion (CANCELED) 100 mL/hr, intravenous, Continuous, Starting on Wed03/24/19 at 0130, Start when blood glucose less than 250 mg/dL and decrease rate of previous IV fluid infusion order. Notify MD when blood glucose less than 250 mg/dL and adjusting IV fluids., On hold since Wed03/24/2019 at 0701 until manually unheld 07 (Held by [facility] er - Provider: Gio Sewell MD - Reason: Other - Comment: Per )1138 (MAR Unhold - Provider: Sanjuanita Enamorado MD)1156 (New Bag - Provider: Juice Vargas RN) dextrose 5% infusion 100 mL/hr, intravenous, Continuous, Starting on Wed03/24/19 at 1300 1300 (Due) insulin regular (HumuLIN R, NovoLIN R) 100 Units in sodium chloride 0.9% 100 mL (1 Units/mL) infusion (CANCELED) 0-30 Units/hr (0-30 mL/hr), 1 units/mL, intravenous, Titrated, Starting on Wed03/24/19 at 0015, Until Wed03/24/19 at 1138, Indications: Hyperglycemia, Desired Range (mg/dL): 130-180 general patients, Multiplier: 0.01, Adjust rate per GlucoStabilizer program for dka order When new IV tubing is used, completely prime the tubing. Once primed, waste an additional 20 ml of insulin infusion using the IV pump prior to connecting to patient., Routine, On hold since Wed03/24/2019 at 0701 until manually unheld 0701 (Held by [facility] er - Provider: Gio Sewell MD - Reason: Other - Comment: Per )1138 (MAR Unhold - Provider: Sanjuanita Enamorado MD)1157 (New Bag - Provider: Juice Vargas RN)1507 (Stopped - Provider: Juice Vargas RN) insulin regular (HumuLIN R, NovoLIN R) 100 Units in sodium chloride 0.9% 100 mL (1 Units/mL) infusion 0-30 Units/hr (0-30 mL/hr), 1 units/mL, intravenous, Titrated, Starting on Wed03/24/19 at 1245, Until Wed03/24/19 at 1914, Indications: Hyperglycemia, Desired Range (mg/dL): 130-180 general patients, Multiplier: 0.02, Adjust rate per GlucoStabilizer program for dka order When new IV tubing is used, completely prime the tubing. Once primed, waste an additional 20 ml of insulin infusion using the IV pump prior to connecting to patient., Routine 1245 (Due)1257 (Rate /Dose Change - Provider: Juice Vargas RN)1356 (Rate/Dose Change - Provider: Juice Vargas RN)1507 (Stopped - Provider: Juice Vargas RN) sodium chloride 0.45% infusion (CANCELED) 150 mL/hr, intravenous, Continuous, Starting on Wed03/24/19 at 0130, Decrease rate to 100 mL/hr when blood glucose less than 250 mg/dL. 0110 (New Bag - Prov ider: Kim Adams, MARY)0651 (New Bag - Provider: Kim Adams, RN) PRN Medication Order 03/22/2019 03/23/2019 03/24/2019 acetaminophen (TYLENOL) tablet 650 mg 650 mg, oral, Every 4 hours PRN, 1st line for pain, Starting on Wed03/24/19 at 0106, Indications: Pain dextrose (D10W) 10% bolus 1-500 mL 1-500 mL, intravenous, at 2-2,000 mL/hr, Administer over 15-30 Minutes, As needed, blood glucose less than 70 mg/dL, Starting on Wed03/24/19 at 0014, Dose as determined by GlucoStabilizer dka order. 25 gm = 250 mL 50 gm = 500 mL, Indications: Hypoglyemia insulin regular bolus from bag 1-10 Units 1-10 Units, intravenous, As needed, hyperglycemia, Starting on Wed03/24/19 at 0014, Bolus per GlucoStabilizer dka order., Indications: Hyperglycemia ondansetron (ZOFRAN) injection 4 mg(Linked Group 1) 4 mg, intravenous, Administer over 2 Minutes, Every 6 hours PRN, nausea, vomiting, if not tolerating PO, Starting on Wed03/24/19 at 0106, Indications: Nausea and Vomiting 1019 (Not Given - Pr ovider: Juice Vargas RN - Reason: Other) ondansetron ODT (ZOFRAN-ODT) disintegrating tablet 4 mg(Linked Group 1) 4 mg, oral, Every 6 hours PRN, nausea, vomiting, Starting on Wed03/24/19 at 0106, Indications: Nausea and Vomiting 1019 (See Alternativ e - Provider: Juice Vargas RN) oxyCODONE (ROXICODONE) tablet 5 mg 5 mg, oral, Every 4 hours PRN, 2nd line for pain, Starting on Wed03/24/19 at 0106, May administer 1 hour after 1st line agent for uncontrolled or increasing pain., Indications: Pain potassium chloride 40 mEq in sodium chloride 0.9% 500 mL IVPB (CANCELED) 40 mEq, intravenous, at 130 mL/hr, Administer over 4 Hours, Every 4 hours PRN, K less than 3.5 mmol/L, Starting on Wed03/24/19 at 0046, For 12 hours, With peripheral IV access, Indications: hypokalemia 0254 (New Bag - Prov ider: Kim Adams RN) Linked Groups Order Group 1: ondansetron ODT (ZOFRAN-ODT) disintegrating tablet 4 mgJump to med 4 mg, oral, Every 6 hours PRN, nausea, vomiting, Starting on Wed03/24/19 at 0106, Indications: Nausea and Vomiting Or ondansetron (ZOFRAN) injection 4 mgJump to med 4 mg, intravenous, Administer over 2 Minutes, Every 6 hours PRN, nausea, vomiting, if not tolerating PO, Starting on Wed03/24/19 at 0106, Indications: Nausea and Vomiting documented in this encounter Orders Medications Ordered That Evan ht Not Have Been Administered Count Last Ordered Date First Ordered Date acetaminophen (TYLENOL) tablet 650 mg 1 dextrose (D10W) 10% bolus 1-500 mL 1 2018 dextrose 5% infusion 1 03/24/2019 enoxaparin (LOVENOX) syringe 30 mg 1 2018 enoxaparin (LOVENOX) syringe 40 mg 1 2018 insulin regular bolus from bag 1-10 Units 1 03/24/2019 ondansetron (ZOFRAN) injection 4 mg 1 03/24 ondansetron ODT (ZOFRAN-ODT) disintegrating tablet 4 mg 1 03/24/2019 oxyCODONE (ROXICODONE) tablet 5 mg 1 2018 sodium phosphate - potassium phosphate (K-PHOS NEUTRAL) tablet 250 mg 1 03/24/2019 Lab Orders Without Results Count Last Ordered D ate First Ordered Date POCT GLUCOSE DEVICE 2 03/24/2019 03/23/20 19 ADT Patient Update Count Last Ordered Date Firs t Ordered Date ED IP DECISION TO ADMIT 1 03/24/2019 documented in this encounter Care Teams Pill Machine Operator Relationship Specialty Start Date End Date Carrie Joseph PA [address] [place] [address] PCP - General 10/04/18 07/19/21 Warren Phillips MD [address] [place] [address] Consulting Physician Gastroenterology 02/16/19 documented as of this encounter
--- OUTSIDE RECORDS SUMMARY | 2024-05-10 18:40 | XMS_ITS | Encounter Summary ---
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
--- OUTSIDE RECORDS SUMMARY | 2024-05-10 18:40 | XMS_ITS | Encounter Summary ---
Author Organization [facility] Healthcare Address [address] [place] [address] Care Team Providers Care Hydrogen Braze Furnace Operator Name Role Phone Carrie Joseph Primary Care Provider + Encounter Details Date Type Department Care Team (Late st Contact Info) Description 02/15/2019 7:36 AM CDT Anesthesia Event [address] [address] [place] [id number] [facility] ANESTHESIA [place], [place] [id number] Anesthesia Record Procedure Summary Procedure Name Responsible Anesthesiologist Anesthesia Start Time Anesthesia Stop Time ESOPHAGOGASTRODUODENOSCOPY BIOPSY Derek Arevalo MD 02/15/19 0736 02/15/19 0752 Events Date Time Event Comment 02/15/2019 0731 In Room 0735 0736 An Start 0736 An Start Data 0736 Start Supplemental O2 0740 Patient Positioned Laterally 0740 An Induction The patient was reevaluated immediately before moderate or deep sedation use and before anesthesia induction. 0740 Anesthesia Ready 0741 Proc Start 0745 Proc Fin 0747 an stop data 0750 Out of Room 0751 Handoff to RN I completed my handoff to the receiving nurse during which we: 1. Patient identified 2. Responsible provider identified 3. Pertinent medical history reviewed 4. Procedure type and surgical course discussed 5. Intraoperative anesthetic management and any significant issues discussed 6. Expectations and concerns for postop period discussed 7. Questions solicited from receiving nurse 8. Patient disposition at the time of handoff: PACU 0752 An Stop Meds Name Total lidocaine (cardiac) syringe 2 % 40 mg propofol 90 mg sodium chloride 0.9% infusion 200 mL * Agents Name O2 * Blood No blood administrations on file. Lines, Drains, and Airways Type Details Placement Removal RETIRED Surgical Site 11/10/18; 1520; Vagina; 06/16/19; Not present on admission 11/10/18 1520 by Landon Ford RN 06/16/19 0000 by Salud Del Angel RN CVC Triple Lumen Placement Date: 02/14/19; Placement Time: 0450; Hand Hygiene: Yes; Site Prep: Chlorhexidine; Site Prep Agent Dried: Yes; Sterile Barrier Used: Yes; Size: 7 Fr; Type: Non-tunneled; Line Length(cm): 15; Orientation: Right; Location: Internal jugular; Inserted by: Dr. 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 Gender Identity Not on file Sexual Orientation Not on file documented as of this encounter OR Notes * Anesthesia Postprocedure Evaluation - Derek Arevalo MD - 02/15/2019 10:35 AM CDT Patient: Karina Fuchs Procedure Summary Date: 02/15/19 Room / Location: [facility]COPY ROOM 1 / [facility] Anesthesia Start: 735 Anesthesia Stop: 751 Procedure: ESOPHAGOGASTRODUODENOSCOPY BIOPSY (N/A ) Diagnosis: Diabetic ketoacidosis without coma associated with type 1 diabetes mellitus (CMS/HCC) Non-intractable vomiting with nausea, unspecified vomiting type (Diabetic ketoacidosis without coma associated with type 1 diabetes mellitus (CMS/HCC) [E10.10]) (Non-intractable vomiting with nausea, unspecified vomiting type [R11.2]) Provider: Warren Phillips MD Responsible Provider: Derek Arevalo MD Anesthesia Type: general/TIVA ASA Status: 3 Anesthesia Type: general/TIVA Last vitals BP 131/81 (BP Location: Left arm) Pulse 106 Temp 37.2 ??C (99 ??F) (Temporal) Resp 24 SpO2 100% Anesthesia Post Evaluation Patient location during evaluation: PACU Patient participation: complete - patient participated Level of consciousness: fully awake Pain score: 0 Pain management: adequate Airway patency: patent Anesthetic complications: no Cardiovascular status: hemodynamically stable Respiratory status: room air Hydration status: euvolemic Pt is: normothermic Nausea/Vomiting status: none * Anesthesia Preprocedure Evaluation - Derek Arevalo MD - 02/15/2019 7:16 AM CDT Images from the original note were not included. Anesthesia Evaluation Karina Fuchs is a 23 y.o. female past medical history of diabetes type 1, depression, DKA, presented to hospital emergency room after leaving the hospital against medical advice Procedure(s): ESOPHAGOGASTRODUODENOSCOPY Pre-Op Diagnosis Codes: * Diabetic ketoacidosis without coma associated with type 1 diabetes mellitus (CMS/HCC) [E10.10] * Non-intractable vomiting with nausea, unspecified vomiting type [R11.2] HISTORY Past Medical History Neurological + Psychiatric history - depression Cardiovascular Cardiac system: negative Hepatic / Heme + History of anemia Gastrointestinal GI system: negative Renal / Renal/ system: negative Musculoskeletal/Pain Musculoskeletal/Pain system: negative Endocrine / Other + Diabetes mellitus (recent DKA, poorly controlled, non compliant) - Diabetes type 2. Diabetic complications: gastroparesis. Functional Capacity Functional capacity: 4-6 METs Day of Surgery assessments + Possibility of assessed - HCG negative (see labs). Review of Systems + nausea/vomiting + abdominal pain Patient Active Problem List Diagnosis ??? Gastroenteritis ??? Sinus tachycardia ??? Normocytic anemia ??? Nausea and vomiting ??? Dehydration ??? Metabolic alkalosis ??? Uncontrolled type 1 diabetes mellitus with hyperglycemia (CMS/HCC) ??? Ketonuria ??? Thrombocytosis (CMS/HCC) ??? Hyperglycemia ??? Type 1 diabetes mellitus with ketoacidosis without coma (CMS/HCC) ??? Sepsis due to gram-negative UTI (CMS/HCC) ??? Less than 8 weeks gestation of ??? Hypokalemia ??? Hyperemesis gravidarum with metabolic disturbance ??? Lactic acidosis ??? Depression ??? Hematemesis ??? Diabetic ketoacidosis without coma associated with type 1 diabetes mellitus (CMS/HCC) ??? Bilious vomiting with nausea ??? Diabetic gastroparesis (CMS/HCC) Past Medical History: Diagnosis Date ??? Depression ??? Diabetes mellitus (CMS/HCC) ??? HX OTHER MEDICAL 2011 Diabetes mellitus, type 1 ??? Miscarriage Past Surgical History: Procedure Laterality Date ??? ABDOMINAL SURGERY ??? SECTION, CLASSIC 2016 ??? TONSILLECTOMY Bilateral 2002 OB History 1 Para Term AB Living SAB TAB Ectopic Multiple Live Births No Known Allergies Med List Status: In Progress Set By: Angel Jolley RN at 02/13/2019 11:54 PM Taking? Last Dose Start Date End Date Provider insulin glargine (LANTUS,BASAGLAR) 100 unit/mL (3 mL) insulin pen 02/13/2019 -- -- Historical Provider, insulin lispro (HumaLOG) 100 unit/mL injection 02/13/2019 -- -- Historical Provider, Notes: Last dose was given in hospital yesterday Current Facility-Administered Medications: ??? dextrose gel in packet 15 g, 15 g, oral, Q15 Min PRN OR dextrose (D10W) 10% bolus 250 mL, 250 mL, intravenous, Q15 Min PRN ??? enoxaparin (LOVENOX) syringe 40 mg, 40 mg, subcutaneous, Daily-2100 ??? glucagon injection 1 mg, 1 mg, intramuscular, Q30 Min PRN ??? insulin glargine (LANTUS,BASAGLAR) pen injection 5 Units, 5 Units, subcutaneous, Nightly, 5 Units at 02/14/19 194 ??? insulin lispro (HumaLOG) pen injection 1-3 Units, 1-3 Units, subcutaneous, Nightly, 1 Units at 02/14/192122 ??? insulin lispro (HumaLOG) pen injection 1-5 Units, 1-5 Units, subcutaneous, TID with meals ??? insulin lispro (HumaLOG) pen injection 2 Units, 2 Units, subcutaneous, TID with meals ??? metoclopramide (REGLAN) injection 5 mg, 5 mg, intravenous, TID, 5 mg at 02/14/192128 ??? ondansetron ODT (ZOFRAN-ODT) disintegrating tablet 4 mg, 4 mg, oral, Q6H PRN OR ondansetron(ZOFRAN) injection 4 mg, 4 mg, intravenous, Q6H PRN ??? sodium chloride 0.9% infusion, 75 mL/hr, intravenous, Continuous, Last Rate: 75 mL/hr at 02/14/191852, 75 mL/hr at 02/14/191852 Social History Tobacco Use Smoking Status Never Smoker Smokeless Tobacco Never Used Substance and Sexual Activity Alcohol Use Not Currently ??? Frequency: Monthly or less Substance and Sexual Activity Drug Use No Family History Problem Relation Age of Onset ??? No Known Problems Mother ??? Autism Brother PAT Physical Exam Vitals: 02/15/19 0400 02/15/19 0500 02/15/19 0600 BP: 101/59 115/78 112/70 Pulse: 70 78 63 Resp: 17 15 18 Temp: 36.5 ??C (97.7 ??F) SpO2: 99% 100% 99% PT: 02/12/2019: 13.3 sec* INR: 02/12/2019: 1.18 APTT: 02/12/2019: 26.2 sec Hgb A1C: No results found for requested labs within last 720 hours. Lab Results Component Value Date WBC 7.9 02/14/2019 HGB 14.3 02/14/2019 HCT 40.3 02/14/2019 MCV 78.6 (L) 02/14/2019 LABPLAT 354 02/14/2019 Lab Results Component Value Date GLUCOSE 108 (H) 02/15/2019 CALCIUM 8.5 02/14/2019 SODIUM 139 02/14/2019 POTASSIUM 3.5 02/14/2019 CO2 23 02/14/2019 CHLORIDE 104 02/14/2019 BUNSER 8 02/14/2019 CREATININE 0.35 (L) 02/14/2019 DOS Physical Exam Medical history, medications, and allergies reviewed. Attestation: I endorse the findings of the anesthesia pre-evaluation assessment dated: 02/15/2019. Airway Exam: Mallampati: III Cervical ROM: FROM TM distance: normal Patient presents with poor mouth opening. Jaw ROM: full Cardiovascular Exam: Rate: regular Rhythm: regular Pulmonary Exam: LCTA, bilat EENT Exam: trachea midline Dental Exam: Appears intact Skin Exam: Skin is warm. Current state: Patient's current state is cooperative and interactive. Anesthesia Plan ASA 3 Planned anesthesia: General/TIVA Induction: Induction: intravenous. Postoperative Plan: No plan for postoperative opioid use. No postoperative mechanical ventilation intended. Patient's planned disposition post procedure is Outpatient. Informed Consent: Discussed plan with MARKET RESEARCH INTERVIEWER. Anesthesia plan and risks discussed with patient. Consent and Attending signature: I and/or my designee have discussed the anesthesia plan, benefits, possible alternatives, parental presence at time of induction (if indicated), and clinically relevant risks that may include dental injury, unintentional awareness, and/or other complications. The patient and/or parent/legal guardian understand, and agree to proceed. All questions answered. documented in this encounter Plan of Treatment Not on file documented as of this encounter Visit Diagnoses Not on filedocumented in this encounter Administered Medications Inactive Administered Medications - up to 3 most recent administrations Medication Order MAR Action Action Date Dose Rate Site lidocaine (cardiac) (XYLOCAINE) preservative free injection intravenous, As needed, Starting on Wed02/15/19 at 0740, Anesthesia Intra-op, Indications: Ventricular ArrhythmiasIndications:Ventricular Arrhythmias Given 02/15/2019 7:40 AM CDT 40 mg propofol (DIPRIVAN) IV intravenous, As needed, Starting on Wed02/15/19 at 0740, Anesthesia Intra-op Given 02/15/2019 7:43 AM CDT 30 mg Given 02/15/2019 7:40 AM CDT 60 mg sodium chloride 0.9% infusion 75 mL/hr, intravenous, Continuous, Starting on Wed02/14/19 at 1915 New Bag 02/16/2019 11:20 AM CDT 75 mL/hr 75 mL/hr Rate/Dose Verify 02/16/2019 11:15 AM CDT 75 mL/hr 75 mL/ hr Rate/Dose Verify 02/16/2019 7:30 AM CDT 75 mL/hr 75 mL/h r documented in this encounter Care Teams Hydrogen Braze Furnace Operator Relationship Specialty Start Date End Date Carrie Joseph PA [address] [place] [address] PCP - General 10/04/18 07/19/21 documented as of this encounter
--- OUTSIDE RECORDS SUMMARY | 2024-05-10 18:40 | XMS_ITS | Encounter Summary ---
Author Organization [facility] Healthcare Address [address] [place] [address] Care Team Providers Care Expediter Name Role Phone Carrie Joseph Primary Care Provider + Reason for Visit * Reason Comments Vomiting Encounter Details Date Type Department Care Team (Latest Contact Info) Description 02/15/2019 3:20 PM CDT - 02/15/2019 3:50 PM CDT Surgery [address] [address] Warren Phillips MD [address] [place] [id number] ESOPHAGOGASTRODUODENOSCOPY BIOPSY Surgery Details Date/Time Status Location OR Service Patient Class Case Class Case Type Trauma Case? 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 Gender Identity Not on file Sexual Orientation Not on file documented as of this encounter Last Filed Vital Signs Vital Sign Reading Time Taken Comments Blood Pressure 158/105 02/15/2019 2:00 PM CDT Pulse 119 02/15/2019 2:00 PM CDT Temperature 37.4 ??C (99.3 ??F) 02/15/2019 12:00 PM C DT Respiratory Rate 18 02/15/2019 2:00 PM CDT Oxygen Saturation 100% 02/15/2019 2:00 PM CDT Inhaled Oxygen Concentration - - Weight 65.1 kg (143 lb 8.3 oz) 02/15/2019 6:00 A M CDT Height 154.9 cm (5' 1 ) 02/14/2019 8:25 AM CDT Body Mass Index 26.95 02/14/2019 8:25 AM CDT documented in this encounter Discharge Summaries * Josette Sloan MD - 02/16/2019 1:47 PM CDT [place], [place] Hospitalist Discharge Summary Patient Name: Karina Menjivar Patient : 1995 Room/Bed: [place] [id number] Admission Date/Time: 02/14/2019 3:04 AM Discharge date: 02/16/2019 Admitting Physician: Gio Sewell MD Discharge Physician: Josette Sloan MD Discharge Diagnoses: Principal Problem: Bilious vomiting with nausea Active Problems: Sinus tachycardia DKA without diabetic coma Type 1 diabetes Diabetic gastroparesis (CMS/HCC) Ulcerative esophagitis Presenting Problem/History of Present Illness: Bilious vomiting with nausea For full details of presentation including detailed history, past medical, surgical, social, familyhistory and detailed ROS, as well as detailed exam and labs at time of presentation, please see theHistory and Physical. Hospital Course: 23yo female with history of type 1 diabetes admitted due to nausea and vomiting. She was also in CKD glucose of 296, 3+ ketones in urine, and anion gap of 21, which are both improved. LFTs were stable and RUQ ultrasound was unremarkable. EGD done on 02/15 showed severe ulcerative esophagitis. Biopsy is pending and she is started on protonix twice daily. Due to concern for gastroparesis, reglan was started. She has tolerated for lunch and will be discharged home. No changes were made to insulin regimen. Issues Requiring Follow-up at Discharge and Test Results Pending at Discharge: EGD biopsy report Discharge Exam: Vitals: 02/16/19 0600 02/16/19 0730 02/16/19 1000 02/16/19 1115 BP: 117/83 118/80 124/80 BP Location: Left arm Left arm Left arm Patient Position: Lying Lying Sitting Pulse: 105 89 107 98 Resp: 20 20 14 20 Temp: 37.7 ??C (99.8 ??F) 36.6 ??C (97.8 ??F) TempSrc: Temporal Temporal SpO2: 98% 99% Weight: 64.7 kg (142 lb 10.2 oz) Height: See progress note Labs: (last 48 hours): Recent Results (from the past 48 hour(s)) POCT glucose Collection Time: 02/14/19 3:02 PM Result Value Ref Range Glucose, POC 77 71 - 98 mg/dL Basic metabolic panel Collection Time: 02/14/19 3:31 PM Result Value Ref Range Sodium 139 135 - 145 mmol/L Potassium, pl 3.5 3.3 - 4.9 mmol/L Chloride 104 97 - 110 mmol/L CO2 23 22 - 32 mmol/L Anion gap 13 2 - 15 mmol/L BUN 8 8 - 25 mg/dL Creatinine 0.35 (L) 0.60 - 1.10 mg/dL Glucose 88 70 - 199 mg/dL Calcium 8.5 8.5 - 10.3 mg/dL eGFR Collection Time: 02/14/19 3:31 PM Result Value Ref Range GFR 154 mL/min/1.73 m2 POCT glucose Collection Time: 02/14/19 4:18 PM Result Value Ref Range Glucose, POC 77 71 - 98 mg/dL POCT glucose Collection Time: 02/14/19 5:03 PM Result Value Ref Range Glucose, POC 89 71 - 98 mg/dL POCT glucose Collection Time: 02/14/19 6:09 PM Result Value Ref Range Glucose, POC 91 71 - 98 mg/dL POCT glucose Collection Time: 02/14/19 9:23 PM Result Value Ref Range Glucose, POC 185 (H) 71 - 98 mg/dL POCT glucose Collection Time: 02/15/19 3:46 AM Result Value Ref Range Glucose, POC 108 (H) 71 - 98 mg/dL POCT glucose Collection Time: 02/15/19 7:22 AM Result Value Ref Range Glucose, POC 158 (H) 71 - 98 mg/dL POCT glucose Collection Time: 02/15/19 9:29 AM Result Value Ref Range Glucose, POC 221 (H) 71 - 98 mg/dL POCT glucose Collection Time: 02/15/19 11:34 AM Result Value Ref Range Glucose, POC 200 (H) 71 - 98 mg/dL POCT glucose Collection Time: 02/15/19 5:15 PM Result Value Ref Range Glucose, POC 100 (H) 71 - 98 mg/dL POCT glucose Collection Time: 02/15/19 9:36 PM Result Value Ref Range Glucose, POC 101 (H) 71 - 98 mg/dL POCT glucose Collection Time: 02/16/19 7:43 AM Result Value Ref Range Glucose, POC 156 (H) 71 - 98 mg/dL POCT glucose Collection Time: 02/16/19 11:24 AM Result Value Ref Range Glucose, POC 190 (H) 71 - 98 mg/dL Diagnostic test and procedures: Xr Chest 1 Vw Portable Result Date: 02/14/2019 Narrative: XR CHEST 1 VIEW HISTORY: Nausea. Emesis. DKA. Central line placement. COMPARISON: Chest CT 05/29/2018 FINDINGS: Heart is normal in size. Lungs are clear with no pleural effusion. There is a right IJ catheter whose tip is in the distal superior vena cava. There is no pneumothorax. Impression: 1. RIGHT IJ CATHETER WHOSE TIP IS IN THE DISTAL SUPERIOR VENA CAVA. 2. LUNGS CLEAR WITHNO PNEUMOTHORAX. Electronically signed by: Evert Moreno M.D. Us Abdomen Limited Result Date: 02/14/2019 Narrative: US ABDOMEN LIMITED HISTORY: Need right upper quadrant ultrasound for persistent nausea and bilious vomiting. TECHNIQUE: Longitudinal and transverse real-time scans are obtained. COMPARISON: None available. FINDINGS: Gallbladder unremarkable, no gallstone seen. Evidence of hepatic steatosis. For the right kidney, non-necrosis. A cyst towards the upper pole the right kidney measures 1.8 x 1.8 x 1.4 cm. Pancreas poorly visualized, obscured by bowel gas. No abdominal aortic aneurysm identified. Impression: #1 GALLBLADDER UNREMARKABLE, NO GALLSTONES IDENTIFIED. 2. EVIDENCE OF HEPATIC STEATOSIS. 3. PANCREAS POORLY VISUALIZED. 4. RIGHT RENAL CYST. Electronically signed by: Kevin Diaz M.D Procedure(s): ESOPHAGOGASTRODUODENOSCOPY BIOPSY - Normal examined duodenum. - Normal stomach. - Severe ulcerative esophagitis. Rule out Booker's esophagus. Biopsied. Medications: Your medication list START taking these medications Instructions Last Dose Given Next Dose Due metoclopramide 5 mg tablet Commonly known as: REGLAN Take 1 tablet (5 mg total) by mouth 4 (four) times a day pantoprazole DR 40 mg EC tablet Commonly known as: PROTONIX Take 1 tablet (40 mg total) by mouth 2 (two) times a day CONTINUE taking these medications Instructions Last Dose Given Next Dose Due insulin glargine 100 unit/mL (3 mL) insulin pen Commonly known as: LANTUS,BASAGLAR insulin lispro 100 unit/mL injection Commonly known as: HumaLOG Where to Get Your Medications These medications were sent to [facility] [address] [place] [id number] ?? metoclopramide 5 mg tablet ?? pantoprazole DR 40 mg EC tablet Discharge Instructions: Activity Instructions Discharge Activity: Walking -You may walk as tolerated. Discharge activity: Resume normal activity Diet Instructions Adult Discharge Diet Diet Type: Return to previous diet Low fat intake Other Instructions Call provider for: Temperature -Temperature greater than 101 degrees F Call provider for: difficulty breathing or chest pain Call provider for: extreme fatigue Call provider for: persistent nausea or vomiting Call provider for: severe uncontrolled pain Special Instructions If you start to have involuntary muscle movement or jerking, stop taking reglan (metoclopramide) and inform your primary care doctor. Disposition: home Outpatient Follow-Up: Contact Information for Follow-ups Warren Phillips MD Specialty: Gastroenterology, Internal Medicine Relationship: Consulting Physician [address] [place] [address] [place] [address] Next Steps: Follow up Instructions: in 1 month for esophagitis Questions: Instructions for follow-up (appointment date and time): in 1 month for esophagitis Follow-up with providerin 1 week post hospital discharge Next Steps: Follow up Instructions: in 1 week post hospital discharge Questions: Instructions for follow-up (appointment date and time): in 1 week post hospital discharge No future appointments. Total time spent on day of discharge 34 minutes Signed: Josette Sloan MD Internal Medicine - Hospitalist [facility] - Adult Hospitalist Service 02/16/2019 1:47 PM Cc: KEANU Conway documented in this encounter Discharge Instructions * Discharge Instr - Other Orders* Yoli Scott RN - 02/16/2019 2:09 PM CDT If you have any questions or concerns following discharge, please call [facility] at [phone]. * Attachments The following attachments cannot be sent through Care Everywhere. * Metoclopramide (By mouth) (Palauan) * Pantoprazole (By mouth) (Palauan) documented in this encounter Medications at Time of Discharge insulin lispro (HumaLOG) 100 unit/mL injection Inject under the skin 3 (three) times a day before meals Uses per sliding scale 1 unit per every 7-8 grams of carb max of 50 units per day insulin glargine (LANTUS,BASAGLAR) 100 unit/mL (3 mL) insulin pen Inject 14 Units under the skin daily 1 metoclopramide (REGLAN) 5 mg tabletIndications:D iabetic Gastroparesis Take 1 tablet (5 mg total) by mouth 4 (four) times a day 120 tablet 02/16/[address] (PROTONIX) 40 mg EC tabletIndications:u lcerative esophagitis Take 1 tablet (40 mg total) by mouth 2 (two) times a day 60 tablet 3 02/16/2019 0 documented as of this encounter Ordered Prescriptions Prescription Sig Dispense Quantity Refills Last Filled Start Date End Date metoclopramide (REGLAN) 5 mg tabletIndications:D iabetic Gastroparesis Take 1 tablet (5 mg total) by mouth 4 (four) times a day 120 tablet 02/16/[address] (PROTONIX) 40 mg EC tabletIndications:u lcerative esophagitis Take 1 tablet (40 mg total) by mouth 2 (two) times a day 60 tablet 3 02/16/2019 0 documented in this encounter Discharge Disposition Disposition Code Departure Means Destination Discharge to home or self care documented in this encounter Progress Notes * Josette Sloan MD - 02/16/2019 8:00 AM CDT [facility] Hospitalist Service Progress Note Patient Name: Karina Menjivar Patient : 1995 Age/Sex: 23 y.o. female Room/Bed: [place] [address]/[place] [address] Admission Date/Time: 02/14/2019 3:04 AM Date: 02/16/2019 Time: 8:01 AM Chief Complaint: follow-up of nausea Subjective: Reports nausea but no vomiting overnight Prefers to try jello first Denies abdominal pain Has had a bowel movement since admission Allergies: No Known Allergies Current Medication List: Scheduled Meds:enoxaparin, 40 mg, subcutaneous, Daily-2100 insulin glargine, 5 Units, subcutaneous, Nightly insulin lispro, 1-3 Units, subcutaneous, Nightly insulin lispro, 1-5 Units, subcutaneous, TID with meals insulin lispro, 5 Units, subcutaneous, TID with meals metoclopramide, 5 mg, intravenous, TID pantoprazole DR, 40 mg, oral, BID sodium chloride 0.9%, 0.5-20 mL, intra-catheter, Q8H BOB Continuous Infusions:sodium chloride 0.9%, 75 mL/hr, Last Rate: 75 mL/hr (02/16/19 0730) PRN Meds:??? dextrose OR dextrose ??? glucagon ??? ondansetron ODT OR ondansetron ??? sodium chloride 0.9% Objective: Vitals: Vitals: 02/16/19 0400 02/16/19 0500 02/16/19 0600 02/16/19 0730 BP: 143/94 140/88 117/83 118/80 BP Location: Left arm Left arm Left arm Patient Position: Lying Lying Lying Pulse: 120 96 105 89 Resp: 20 Temp: 36.7 ??C (98 ??F) 37.7 ??C (99.8 ??F) TempSrc: Temporal Temporal SpO2: 100% 100% 98% 99% Weight: 64.7 kg (142 lb 10.2 oz) Height: I/O last 2 completed shifts: In: 2245 [P.O.:250; I.V.:1995] Out: 3020 [Urine:2950; Emesis/NG output:70] I/O this shift: In: 274 [I.V.:274] Out: 500 [Urine:500] Telemetry: sinus tachycardia Physical Exam: General: awake, alert, oriented to person, place, time Eyes: EOMI, ZORAIDA, sclare non icteric Neck: supple Pharynx: No gross oral lesion, tongue midline, mucosa moist Lungs clear to auscultation with no wheezes or rales Heart: tachycardic, regular rate and rhythm Abd: +BS, Non Tender, Non distended Lower Ext: nonpitting edema in lower extremities Neuro: No new gross deficits appreciated Musculoskeletal: no gross joint erythema, tenderness Psychiatric: normal affect and mood Skin: no lesions noted Labs: Recent Results (from the past 24 hour(s)) POCT glucose Collection Time: 02/15/19 9:29 AM Result Value Ref Range Glucose, POC 221 (H) 71 - 98 mg/dL POCT glucose Collection Time: 02/15/19 11:34 AM Result Value Ref Range Glucose, POC 200 (H) 71 - 98 mg/dL POCT glucose Collection Time: 02/15/19 5:15 PM Result Value Ref Range Glucose, POC 100 (H) 71 - 98 mg/dL POCT glucose Collection Time: 02/15/19 9:36 PM Result Value Ref Range Glucose, POC 101 (H) 71 - 98 mg/dL POCT glucose Collection Time: 02/16/19 7:43 AM Result Value Ref Range Glucose, POC 156 (H) 71 - 98 mg/dL I have reviewed the pertinent labs. ASSESSMENT AND PLAN: Principal Problem: Bilious vomiting with nausea Active Problems: Sinus tachycardia Hyperglycemia Diabetic gastroparesis (CMS/HCC) Ulcerative esophagitis Continue IV fluid. On lantus and humalog as ordered and will uptitrate as PO intake improves. Glucose is stable. IV reglan scheduled. PO protonix bid and follow up pending path. Transfer out of ICU. Discharge home either later today or tomorrow depending on clinical course MDM:moderate complexity Josette Sloan MD Internal Medicine - Hospitalist [facility] - Adult Hospitalist Service 02/16/2019 8:01 AM * Sanjuanita Enamorado MD - 02/15/2019 3:11 PM CDT General Medicine Daily Progress SUBJECTIVE Chief complaint of nausea and vomiting Interval History: No improvement since yesterday. EGD shows severe ulcerative esophagitis OBJECTIVE Vitals: 24hr Min/Max: Temp Min: 36.5 ??C (97.7 ??F) Max: 37.4 ??C (99.3 ??F) Pulse Min: 63 Max: 144 BP Min: 101/59 Max: 164/108 Resp Min: 13 Max: 26 SpO2 Min: 98 % Max: 100 % Most Recent : Vitals: 02/15/19 1400 BP: (!) 158/105 Pulse: 119 Resp: 18 Temp: SpO2: 100% I/O last 2 completed shifts: In: 3322 [P.O.:600; I.V.:2722] Out: 1150 [Urine:1150] I/O this shift: In: 780 [I.V.:780] Out: 1220 [Urine:1150; Emesis/NG output:70] Physical Exam: Eyes: EOMI, ZORAIDA, sclare non icteric Neck: supple, no nuchal ridigity, no gross carotid bruits appreciated Pharynx: No gross oral lesion, tongue midline, mucosa moist Lungs CTA Heart: [id number], tachycardic, no murmur or gallop Abd: +BS, Non Tender, Non distended, No gross hepatomegaly Lower Ext: No gross edema Neuro: No new gross deficits appreciated Musculoskeletal: no gross joint erythema, edema, tenderness Skin: No new change Lab/Current Medication Review: Recent Results (from the past 24 hour(s)) Basic metabolic panel Collection Time: 02/14/19 3:31 PM Result Value Ref Range Sodium 139 135 - 145 mmol/L Potassium, pl 3.5 3.3 - 4.9 mmol/L Chloride 104 97 - 110 mmol/L CO2 23 22 - 32 mmol/L Anion gap 13 2 - 15 mmol/L BUN 8 8 - 25 mg/dL Creatinine 0.35 (L) 0.60 - 1.10 mg/dL Glucose 88 70 - 199 mg/dL Calcium 8.5 8.5 - 10.3 mg/dL eGFR Collection Time: 02/14/19 3:31 PM Result Value Ref Range GFR 154 mL/min/1.73 m2 POCT glucose Collection Time: 02/14/19 4:18 PM Result Value Ref Range Glucose, POC 77 71 - 98 mg/dL POCT glucose Collection Time: 02/14/19 5:03 PM Result Value Ref Range Glucose, POC 89 71 - 98 mg/dL POCT glucose Collection Time: 02/14/19 6:09 PM Result Value Ref Range Glucose, POC 91 71 - 98 mg/dL POCT glucose Collection Time: 02/14/19 9:23 PM Result Value Ref Range Glucose, POC 185 (H) 71 - 98 mg/dL POCT glucose Collection Time: 02/15/19 3:46 AM Result Value Ref Range Glucose, POC 108 (H) 71 - 98 mg/dL POCT glucose Collection Time: 02/15/19 7:22 AM Result Value Ref Range Glucose, POC 158 (H) 71 - 98 mg/dL POCT glucose Collection Time: 02/15/19 9:29 AM Result Value Ref Range Glucose, POC 221 (H) 71 - 98 mg/dL POCT glucose Collection Time: 02/15/19 11:34 AM Result Value Ref Range Glucose, POC 200 (H) 71 - 98 mg/dL Current Facility-Administered Medications Medication Dose Route Frequency Provider Last Rate Last Dose ??? dextrose gel in packet 15 g 15 g oral Q15 Min PRN Warren Phillips MD Or ??? dextrose (D10W) 10% bolus 250 mL 250 mL intravenous Q15 Min PRN Warren Phillips MD ??? enoxaparin (LOVENOX) syringe 40 mg 40 mg subcutaneous Daily-2100 Warren Phillips MD ??? glucagon injection 1 mg 1 mg intramuscular Q30 Min PRN Warren Phillips MD ??? insulin glargine (LANTUS,BASAGLAR) pen injection 5 Units 5 Units subcutaneous Nightly Warren Phillips MD 5 Units at 02/14/19 194 ??? insulin glargine (LANTUS,BASAGLAR) pen injection 5 Units 5 Units subcutaneous Once Sanjuanita Enamorado MD ??? insulin lispro (HumaLOG) pen injection 1-3 Units 1-3 Units subcutaneous Nightly Warren Phillips MD 1 Units at 02/14/192122 ??? insulin lispro (HumaLOG) pen injection 1-5 Units 1-5 Units subcutaneous TID with meals Warren Salas MD 2 Units at 02/15/19 1144 ??? insulin lispro (HumaLOG) pen injection 5 Units 5 Units subcutaneous TID with meals Sanjuanita Enamorado MD ??? metoclopramide (REGLAN) injection 5 mg 5 mg intravenous TID Warren Phillips MD 5 mg at 02/15/19 0900 ??? ondansetron ODT (ZOFRAN-ODT) disintegrating tablet 4 mg 4 mg oral Q6H PRN Warren Phillips MD Or ??? ondansetron (ZOFRAN) injection 4 mg 4 mg intravenous Q6H PRN Warren Phillips MD 4 mg at 02/15/19 0925 ??? pantoprazole DR (PROTONIX) extended release tablet 40 mg 40 mg oral BID Warren Phillips MD 40 mg at 02/15/19 1147 ??? sodium chloride 0.9% flush 0.5-20 mL 0.5-20 mL intra-catheter Q8H BOB Warren Phillips MD ??? sodium chloride 0.9% flush 0.5-20 mL 0.5-20 mL intra-catheter PRN Warren Phillips MD ??? sodium chloride 0.9% infusion 75 mL/hr intravenous Continuous Warren Phillips MD 75 mL/hr at 02/15/19924 75 mL/hr at 02/15/19924 A/P: 1. Severe ulcerative esophagitis, status post EGD today. Dr. Phillips recommends proton pump inhibitors b.i.d. And follow up in office. Recommends low-fat GI diabetic diabetic diet. I discussed thiswith the patient. She verbalized understanding. An 2. Persistent nausea, continues to have nausea, is not going to eat anything. Suspect that there iscombination of diabetic gastroparesis. Recommending to continue Reglan t.i.d.. 3. History of recent DKA. Patient is very sensitive. With blood sugars of 300 she goes into DKA. Current blood sugar is 200. Patient was supposed to have 5 units of Lantus at night and 2 units Humalog with meals. It ordering 5 unit of Lantus right now. If she decides to eat for dinner then she willrequire another 5 units at night but will see how it goes. 4. Sinus tachycardia, heart rate is around 100. Moderate complexity Spent 25 minutes Principal Problem: Bilious vomiting with nausea Active Problems: Sinus tachycardia Hyperglycemia Diabetic gastroparesis (CMS/HCC) Ulcerative esophagitis Sanjuanita Enamorado MD 02/15/2019 3:15 PM * Neida Pabon, RN - 02/15/2019 2:34 PM CDT Per patient she lives with her grandmother , denied any discharge planning needs and did not offer much conversation . 02/15/19 1005 Information Information Obtained From Patient Referral Data Referral Source Self referral Referral Reason Discharge Planning Prior to Admission Primary Caregiver Self Support System Family members Home Care Services No Durable Medical Equipment None Living Arrangements Family members Type of Residence Private residence Potential Discharge Needs Dialysis No * Neida Pabon, RN - 02/15/2019 2:33 PM CDT 02/15/19 1005 Basic Mobility - 6 Click How much [...] railing? 4 Total Score (range 6-24) 24 * Yolette Whyte, MARY - 02/15/2019 2:02 PM CDT Karina Menjivar [id number] Gio Sewell MD Diabetes Management Education Provided: Please see the Patient Education Activity Nausea continues today. Upper GI endoscopy completed. Awaiting pathology results. Encouraged to follow up with dr. Sanches and move forward with insulin pump therapy. Yolette Whyte, MARY, Division Commander 02/15/2019 2:02 PM * Lucinda Woodward, DIANDRA - 02/15/2019 12:12 PM CDT Nutrition Assessment Reason for Assessment: Screened at Nutrition Risk and Initial Nutrition Assessment Encounter Date: 02/15/19 12:13 PM Nutrition Assessment and Plan: Patient is a 23 y.o. female. Admit Dx: DIABETIC KETOACIDOSIS WITHOUT COMA ASSOCIATED WITH TYPE 1 DIABETES MELLITUS ([facility]/HCC). Admitted on 02/14/2019, current LOS is 1 days. Nutrition Screen What diet do you follow at home?: diabetic Have You Recently Lost Weight Without Trying?: No Poor Oral Intake for Four or More Days Prior to Admission: Yes (Comment)(nausea and vomiting) Current diet order: Adult Diet Restricted; Fat Controlled; Consistent Carbohydrate Pt intake na. PO intakes: na Wt Readings from Last 10 Encounters: 02/15/19 65.1 kg (143 lb 8.3 oz) 02/10/19 56.7 kg (125 lb) 11/10/18 59.3 kg (130 lb 11.7 oz) 11/08/18 56.7 kg (125 lb) 10/07/18 63.1 kg (139 lb 1.8 oz) 05/26/18 55.4 kg (122 lb 2.2 oz) 03/31/18 53 kg (116 lb 13.5 oz) 01/02/18 51.6 kg (113 lb 12.1 oz) 12/07/17 53.1 kg (117 lb 1 oz) 08/21/14 57.2 kg (126 lb 1.7 oz) (54 %, Z= 0.09)* * Growth percentiles are based on [facility] (Girls, 2-20 Years) data. Nutrition Diagnosis 1: Inadequate energy intake Related to: Nausea, Vomiting Evidenced by: PO under50%, Physical finding ?? Interventions: [place] diet preferences within the limits of nutrition care order ?? Monitoring and Evaluation: Discharge plans, Labs, PO intake ?? Goals: Adequate nutrition to meet estimated needs by next assessment ? Estimated needs: ?? Total Kcal/kg Estimated Needs : 1627.5 based on Kcal/k. Type of Weight Used for Estimated Kcals: Current ?? MSJ using ?? [place] State ?? Total Protein Estimated Needs (gm): 52.08 Protein Needs Based on g/k.8 Type of Weight Used for Estimated Protein : Current. ?? Total Fluid Estimated Needs: 1952 Fluid Needs Based on : 30 ml/kg. Objective Anthropometrics Weight: 65.1 kg (143 lb 8.3 oz) Admission Weight : 63.7 kg Weight Change: 1.39 kg (3.08 lbs) IBW/kg (Calculated) : 47.6 kg Height: 154.9 cm (5' 1 ) Weight in (lb) to have BMI = 25: 132 BMI (Calculated): 27.1 3 Day I/O Summary 02/13 1900 - 02/15 0659 In: 3322 [P.O.:600; I.V.:2722] Out: 1150 [Urine:1150] Temp: 37.2 ??C (99 ??F) Past Medical History: Diagnosis Date ??? Depression ??? Diabetes mellitus (CMS/HCC) ??? HX OTHER MEDICAL 2011 Diabetes mellitus, type 1 ??? Miscarriage Medications and Lab Review: Scheduled Meds: enoxaparin, 40 mg, subcutaneous, Daily-2100 insulin glargine, 5 Units, subcutaneous, Nightly insulin lispro, 1-3 Units, subcutaneous, Nightly insulin lispro, 1-5 Units, subcutaneous, TID with meals insulin lispro, 2 Units, subcutaneous, TID with meals metoclopramide, 5 mg, intravenous, TID pantoprazole DR, 40 mg, oral, BID sodium chloride 0.9%, 0.5-20 mL, intra-catheter, Q8H BOB Continuous Infusions: sodium chloride 0.9%, 75 mL/hr, Last Rate: 75 mL/hr (02/15/19 0925) Sodium Date Value Ref Range Status 02/14/2019 139 135 - 145 mmol/L Final Potassium, pl Date Value Ref Range Status 02/14/2019 3.5 3.3 - 4.9 mmol/L Final BUN Date Value Ref Range Status 02/14/2019 8 8 - 25 mg/dL Final Creatinine Date Value Ref Range Status 02/14/2019 0.35 (L) 0.60 - 1.10 mg/dL Final Phosphorus, pl Date Value Ref Range Status 02/13/2019 2.7 2.3 - 4.5 mg/dL Final Albumin Date Value Ref Range Status 02/14/2019 4.1 3.5 - 5.0 g/dL Final Magnesium Date Value Ref Range Status 02/13/2019 1.8 1.6 - 2.4 mg/dL Final Calcium Date Value Ref Range Status 02/14/2019 8.5 8.5 - 10.3 mg/dL Final Lab Results Component Value Date HGBA1C 9.4 (H) 10/05/2018 POC Glucose: 200(02/15) Nursing Assessment: Bowel Sounds (All Quadrants): Active, Present Emesis Assessment Emesis Color/Appearance: Green Teodoro Scale Score: 20 Skin Integrity: Bruising Nutrition Follow-Up : 02/20/[address],LDN * Aida Duckworth NP - 02/14/2019 9:32 AM CDT GI Daily Progress Note Date of visit: 02/14/2019 Subjective: Last 24 hours records reviewed. Patient is doing about the same. She is still having nausea on and off. Pt did leave AMA last night because she was feeling better but returned early this morning. When I entered the room, patient had just had an episode of emesis. It was darker green. No blood or coffee ground- like emesis noted. She denies abdominal pain and hasn't had a BM since admission. She says she is still passing gas. ROS: Review of Systems Objective: Vital signs in last 24 hours: Temp: [36.8 ??C (98.3 ??F)-37.8 ??C (100 ??F)] 36.8 ??C (98.3 ??F) Pulse: [88-123] 123 Resp: [15-30] 30 BP: (124-175)/(66-106) 155/103 Intake/Output last 3 shifts: No intake/output data recorded. Physical Exam: Physical Exam Constitutional: She is oriented to person, place, and time. She appears well-developed. HENT: Head: Normocephalic. Eyes: Conjunctivae are normal. Pulmonary/Chest: Effort normal. Abdominal: Soft. Normal appearance and bowel sounds are normal. She exhibits no distension and no mass. There is no splenomegaly or hepatomegaly. There is no tenderness. There is no rebound and no guarding. No hernia. Musculoskeletal: Normal range of motion. Neurological: She is alert and oriented to person, place, and time. Skin: Skin is warm and dry. Psychiatric: Her behavior is normal. Judgment and thought content normal. Nursing note and vitals reviewed. Labs and Imaging: Labs and X rays reviewed. Recent Results (from the past 24 hour(s)) POCT glucose Collection Time: 02/13/19 10:22 AM Result Value Ref Range Glucose, POC 142 (H) 71 - 98 mg/dL POCT glucose Collection Time: 02/13/19 11:36 AM Result Value Ref Range Glucose, POC 133 (H) 71 - 98 mg/dL POCT glucose Collection Time: 02/13/19 12:38 PM Result Value Ref Range Glucose, POC 139 (H) 71 - 98 mg/dL POCT glucose Collection Time: 02/13/19 1:58 PM Result Value Ref Range Glucose, POC 132 (H) 71 - 98 mg/dL Basic metabolic panel Collection Time: 02/13/19 2:08 PM Result Value Ref Range Sodium 136 135 - 145 mmol/L Potassium, pl 2.9 (Critical) 3.3 - 4.9 mmol/L Chloride 96 (L) 97 - 110 mmol/L CO2 25 22 - 32 mmol/L Anion gap 15 2 - 15 mmol/L BUN 3 (L) 8 - 25 mg/dL Creatinine 0.34 (L) 0.60 - 1.10 mg/dL Glucose 146 70 - 199 mg/dL Calcium 8.8 8.5 - 10.3 mg/dL Magnesium Collection Time: 02/13/19 2:08 PM Result Value Ref Range Magnesium 1.8 1.6 - 2.4 mg/dL Phosphorus Collection Time: 02/13/19 2:08 PM Result Value Ref Range Phosphorus, pl 2.7 2.3 - 4.5 mg/dL eGFR Collection Time: 02/13/19 2:08 PM Result Value Ref Range GFR 156 mL/min/1.73 m2 POCT glucose Collection Time: 02/13/19 4:46 PM Result Value Ref Range Glucose, POC 212 (H) 71 - 98 mg/dL POCT glucose Collection Time: 02/13/19 11:57 PM Result Value Ref Range Glucose, POC 256 (H) 71 - 98 mg/dL Comprehensive metabolic panel Collection Time: 02/14/19 12:44 AM Result Value Ref Range Sodium 131 (L) 135 - 145 mmol/L Potassium, pl 3.7 3.3 - 4.9 mmol/L Chloride 94 (L) 97 - 110 mmol/L CO2 16 (L) 22 - 32 mmol/L Anion gap 21 (H) 2 - 15 mmol/L BUN 6 (L) 8 - 25 mg/dL Creatinine 0.36 (L) 0.60 - 1.10 mg/dL Glucose 296 (H) 70 - 199 mg/dL Calcium 9.0 8.5 - 10.3 mg/dL Bilirubin, total 0.6 0.1 - 1.2 mg/dL Protein, pl 6.8 6.5 - 8.5 g/dL Albumin 4.1 3.5 - 5.0 g/dL Alk phos 73 40 - 130 Units/L ALT 9 7 - 45 Units/L AST 15 10 - 45 Units/L hCG, blood, quantitative Collection Time: 02/14/19 12:44 AM Result Value Ref Range hCG, quant <5.0 0.0 - 5.0 IUnits/L eGFR Collection Time: 02/14/19 12:44 AM Result Value Ref Range GFR 153 mL/min/1.73 m2 CBC with auto differential Collection Time: 02/14/19 1:34 AM Result Value Ref Range WBC 7.9 3.8 - 9.9 K/cumm Hgb 14.3 11.9 - 15.5 g/dL Hct 40.3 35.6 - 45.5 % Plt 354 150 - 400 K/cumm MPV 9.0 (L) 9.1 - 12.3 fL RBC 5.13 3.90 - 5.20 M/cumm MCV 78.6 (L) 81.3 - 96.4 fL MCH 27.9 27.1 - 33.3 pg MCHC 35.5 32.3 - 35.7 g/dL RDW CV 14.9 11.1 - 14.9 % RDW SD 42.8 35.7 - 48.1 fL NRBC abs 0.00 0.00 - 0.01 K/cumm Differential, auto Collection Time: 02/14/19 1:34 AM Result Value Ref Range Neutrophil abs 6.2 1.7 - 6.5 K/cumm Imm gran abs 0.0 0.0 - 0.1 K/cumm Lymphocyte abs 1.2 0.8 - 3.3 K/cumm Monocyte abs 0.5 0.2 - 0.8 K/cumm Eosinophil abs 0.0 0.0 - 0.5 K/cumm Basophil abs 0.0 0.0 - 0.1 K/cumm Neutrophil pct 77.7 % Imm gran pct 0.4 % Lymphocyte pct 14.8 % Monocyte pct 6.7 % Eosinophil pct 0.1 % Basophil pct 0.3 % POCT glucose Collection Time: 02/14/19 3:45 AM Result Value Ref Range Glucose, POC 281 (H) 71 - 98 mg/dL POCT glucose Collection Time: 02/14/19 4:54 AM Result Value Ref Range Glucose, POC 257 (H) 71 - 98 mg/dL Urinalysis reflex to microscopic Collection Time: 02/14/19 4:57 AM Result Value Ref Range Color, ur Yellow Yellow Clarity, ur Clear Clear Specific gravity, ur >1.030 (H) 1.010 - 1.025 pH, urine 6.0 Protein, ur ql Negative Negative Glucose, ur ql 3+ (A) Negative Ketones, ur 3+ (A) Negative Bilirubin, ur Negative Negative Blood, ur Negative Negative Urobilinogen, ur 0.2 mg/dL Nitrite, ur Negative Negative Leukocyte esterase, ur Negative Negative POCT glucose Collection Time: 02/14/19 6:06 AM Result Value Ref Range Glucose, POC 208 (H) 71 - 98 mg/dL POCT glucose Collection Time: 02/14/19 7:19 AM Result Value Ref Range Glucose, POC 162 (H) 71 - 98 mg/dL Basic metabolic panel Collection Time: 02/14/19 8:12 AM Result Value Ref Range Sodium 141 135 - 145 mmol/L Potassium, pl 3.8 3.3 - 4.9 mmol/L Chloride 105 97 - 110 mmol/L CO2 21 (L) 22 - 32 mmol/L Anion gap 15 2 - 15 mmol/L BUN 8 8 - 25 mg/dL Creatinine 0.41 (L) 0.60 - 1.10 mg/dL Glucose 120 70 - 199 mg/dL Calcium 8.6 8.5 - 10.3 mg/dL eGFR Collection Time: 02/14/19 8:12 AM Result Value Ref Range GFR 147 mL/min/1.73 m2 POCT glucose Collection Time: 02/14/19 8:37 AM Result Value Ref Range Glucose, POC 93 71 - 98 mg/dL Xr Chest 1 Vw Portable Result Date: 02/14/2019 1. RIGHT IJ CATHETER WHOSE TIP IS IN THE DISTAL SUPERIOR VENA CAVA. 2. LUNGS CLEAR WITH NO PNEUMOTHORAX. Electronically signed by: Evert Moreno M.D. GI IMPRESSION: 1. N/V secondary to gastroparesis exacerbated by DKA 2. Uncontrolled type I diabetes GI PLAN/RECOMMENDATIONS: 1. Pt to get Reglan IV Q8H 2. Spoke with Dr. Phillips who would like to do EGD tomorrow once patient is more settled and stable from return to hospital this morning. 3. NPO after midnight. 4. Will follow progress. Aida Duckworth NP Cosigned by Warren Phillips MD at 02/15/2019 9:18 AM CDT documented in this encounter H&P Notes * Sanjuanita Enamorado MD - 02/14/2019 11:46 AM CDT History and Physical Date of service February 14, 2019 Primary care physician Carrie joseph SUBJECTIVE HPI: This is a pleasant 23-year-old female, past medical history of diabetes type 1, depression, DKA, presented to hospital emergency room after leaving the hospital against medical advice. She left against medical advice yesterday, she started having some nausea and emesis at around 9:00 p.m.And that is why she came back to hospital emergency room. Before she left AMA we advised her not to go and stay in the hospital have a endoscopy done for further evaluation. We suspect patient has diabetic gastroparesis. Will during last admission when I offered her regular and she stated that it is not working and she had 1 at. But we started the Reglan y esterday she tolerated the medicine. She was not having any nausea vomiting and was unable to tolerate clear liquids. This was the GI recommendation to continue clear liquids until the endoscopy. Also she was on proton pump inhibitor and the symptomatic treatment for nausea with Compazine and Zofran. Currently patient denies any fever chills or any other new symptoms except for she started having nausea vomiting. Vomiting bile. Patient denies abdominal pain, denies hematemesis, hematochezia. Claims to be compliant with insulin. Past Medical History: Diagnosis Date ??? Depression ??? Diabetes mellitus (CMS/HCC) ??? HX OTHER MEDICAL 2010 Diabetes mellitus, type 1 ??? Miscarriage Past Surgical History: Procedure Laterality Date ??? ABDOMINAL SURGERY ??? SECTION, CLASSIC 2016 ??? TONSILLECTOMY Bilateral 2002 Medications Prior to Admission Medication Sig Dispense Refill Last Dose ??? insulin glargine (LANTUS,BASAGLAR) 100 unit/mL (3 mL) insulin pen Inject 10 Units under the skin daily 02/13/2019 at 2100 ??? insulin lispro (HumaLOG) 100 unit/mL injection Inject under the skin 3 (three) times a day before meals Uses per sliding scale 1 unit per every 8 grams of carb 02/13/2019 at 1800 No Known Allergies Social History Tobacco Use [...] dyspnea 6. GI Positive for nausea and vomiting Denies: abdominal pain, decreased appetite,change in bowel habitus, diarrhea,constipation, melena, BRBPR 7. Denies: dysuria, frequency, hematuria, nocturia, urgency 8. Metabolic Denies: cold intolerance, heat intolerance, polyphagia, polydipsia 9. Neurologic Denies: headache, dizziness, seizure, change in mental status, focal weakness, focal numbness 10. Musculoskeletal Denies: myalgia, joint pain, joint redness, joint swelling, extremity pain 11. Hematologic Denies: bleeding, bruising, hematoma, lymphadenopathy, icterus OBJECTIVE Vitals: Arrival Vitals Temp 02/13/19 2352 37.8 ??C (100 ??F) Pulse 02/13/19 2352 121 Resp 02/13/19 2352 18 BP 02/13/19 2352 (!) 146/102 SpO2 02/13/19 2352 97 % Temp src 02/13/19 2352 Temporal Heart Rate Source 02/14/19 0825 Monitor Patient Position 02/14/19 0825 Sitting BP Location 02/14/19 0825 Left arm FiO2 (%) -- 24hr Min/Max: Temp Min: 36.8 ??C (98.3 ??F) Max: 37.8 ??C (100 ??F) Pulse Min: 88 Max: 123 BP Min: 124/66 Max: 175/100 Resp Min: 15 Max: 30 SpO2 Min: 97 % Max: 100 % Most Recent : Vitals: 02/14/19 0825 BP: (!) 155/103 Pulse: 123 Resp: 30 Temp: 36.8 ??C (98.3 ??F) SpO2: 100% No intake or output data in the 24 hours ending 02/14/19 1146 Physical exam: Eyes: EOMI, ZORAIDA, sclare non icteric Neck: supple, no nuchal ridigity, no gross carotid bruits appreciated Pharynx: No gross oral lesion, tongue midline, mucosa moist Lungs CTA Heart: [id number], no murmur or gallop, no friction rub Abd: +BS, Non Tender, Non distended, No gross hepatomegaly Lower Ext: No gross edema Neuro: No new gross deficits appreciated Musculoskeletal: no gross joint erythema, edema, tenderness Genitourinary: No change Skin: No acute change Lab/Radiology/Diagnostic Review: Recent Results (from the past 24 hour(s)) POCT glucose Collection Time: 02/13/19 12:38 PM Result Value Ref Range Glucose, POC 139 (H) 71 - 98 mg/dL POCT glucose Collection Time: 02/13/19 1:58 PM Result Value Ref Range Glucose, POC 132 (H) 71 - 98 mg/dL Basic metabolic panel Collection Time: 02/13/19 2:08 PM Result Value Ref Range Sodium 136 135 - 145 mmol/L Potassium, pl 2.9 (Critical) 3.3 - 4.9 mmol/L Chloride 96 (L) 97 - 110 mmol/L CO2 25 22 - 32 mmol/L Anion gap 15 2 - 15 mmol/L BUN 3 (L) 8 - 25 mg/dL Creatinine 0.34 (L) 0.60 - 1.10 mg/dL Glucose 146 70 - 199 mg/dL Calcium 8.8 8.5 - 10.3 mg/dL Magnesium Collection Time: 02/13/19 2:08 PM Result Value Ref Range Magnesium 1.8 1.6 - 2.4 mg/dL Phosphorus Collection Time: 02/13/19 2:08 PM Result Value Ref Range Phosphorus, pl 2.7 2.3 - 4.5 mg/dL eGFR Collection Time: 02/13/19 2:08 PM Result Value Ref Range GFR 156 mL/min/1.73 m2 POCT glucose Collection Time: 02/13/19 4:46 PM Result Value Ref Range Glucose, POC 212 (H) 71 - 98 mg/dL POCT glucose Collection Time: 02/13/19 11:57 PM Result Value Ref Range Glucose, POC 256 (H) 71 - 98 mg/dL Comprehensive metabolic panel Collection Time: 02/14/19 12:44 AM Result Value Ref Range Sodium 131 (L) 135 - 145 mmol/L Potassium, pl 3.7 3.3 - 4.9 mmol/L Chloride 94 (L) 97 - 110 mmol/L CO2 16 (L) 22 - 32 mmol/L Anion gap 21 (H) 2 - 15 mmol/L BUN 6 (L) 8 - 25 mg/dL Creatinine 0.36 (L) 0.60 - 1.10 mg/dL Glucose 296 (H) 70 - 199 mg/dL Calcium 9.0 8.5 - 10.3 mg/dL Bilirubin, total 0.6 0.1 - 1.2 mg/dL Protein, pl 6.8 6.5 - 8.5 g/dL Albumin 4.1 3.5 - 5.0 g/dL Alk phos 73 40 - 130 Units/L ALT 9 7 - 45 Units/L AST 15 10 - 45 Units/L hCG, blood, quantitative Collection Time: 02/14/19 12:44 AM Result Value Ref Range hCG, quant <5.0 0.0 - 5.0 IUnits/L eGFR Collection Time: 02/14/19 12:44 AM Result Value Ref Range GFR 153 mL/min/1.73 m2 CBC with auto differential Collection Time: 02/14/19 1:34 AM Result Value Ref Range WBC 7.9 3.8 - 9.9 K/cumm Hgb 14.3 11.9 - 15.5 g/dL Hct 40.3 35.6 - 45.5 % Plt 354 150 - 400 K/cumm MPV 9.0 (L) 9.1 - 12.3 fL RBC 5.13 3.90 - 5.20 M/cumm MCV 78.6 (L) 81.3 - 96.4 fL MCH 27.9 27.1 - 33.3 pg MCHC 35.5 32.3 - 35.7 g/dL RDW CV 14.9 11.1 - 14.9 % RDW SD 42.8 35.7 - 48.1 fL NRBC abs 0.00 0.00 - 0.01 K/cumm Differential, auto Collection Time: 02/14/19 1:34 AM Result Value Ref Range Neutrophil abs 6.2 1.7 - 6.5 K/cumm Imm gran abs 0.0 0.0 - 0.1 K/cumm Lymphocyte abs 1.2 0.8 - 3.3 K/cumm Monocyte abs 0.5 0.2 - 0.8 K/cumm Eosinophil abs 0.0 0.0 - 0.5 K/cumm Basophil abs 0.0 0.0 - 0.1 K/cumm Neutrophil pct 77.7 % Imm gran pct 0.4 % Lymphocyte pct 14.8 % Monocyte pct 6.7 % Eosinophil pct 0.1 % Basophil pct 0.3 % POCT glucose Collection Time: 02/14/19 3:45 AM Result Value Ref Range Glucose, POC 281 (H) 71 - 98 mg/dL POCT glucose Collection Time: 02/14/19 4:54 AM Result Value Ref Range Glucose, POC 257 (H) 71 - 98 mg/dL Urinalysis reflex to microscopic Collection Time: 02/14/19 4:57 AM Result Value Ref Range Color, ur Yellow Yellow Clarity, ur Clear Clear Specific gravity, ur >1.030 (H) 1.010 - 1.025 pH, urine 6.0 Protein, ur ql Negative Negative Glucose, ur ql 3+ (A) Negative Ketones, ur 3+ (A) Negative Bilirubin, ur Negative Negative Blood, ur Negative Negative Urobilinogen, ur 0.2 mg/dL Nitrite, ur Negative Negative Leukocyte esterase, ur Negative Negative POCT glucose Collection Time: 02/14/19 6:06 AM Result Value Ref Range Glucose, POC 208 (H) 71 - 98 mg/dL POCT glucose Collection Time: 02/14/19 7:19 AM Result Value Ref Range Glucose, POC 162 (H) 71 - 98 mg/dL Basic metabolic panel Collection Time: 02/14/19 8:12 AM Result Value Ref Range Sodium 141 135 - 145 mmol/L Potassium, pl 3.8 3.3 - 4.9 mmol/L Chloride 105 97 - 110 mmol/L CO2 21 (L) 22 - 32 mmol/L Anion gap 15 2 - 15 mmol/L BUN 8 8 - 25 mg/dL Creatinine 0.41 (L) 0.60 - 1.10 mg/dL Glucose 120 70 - 199 mg/dL Calcium 8.6 8.5 - 10.3 mg/dL eGFR Collection Time: 02/14/19 8:12 AM Result Value Ref Range GFR 147 mL/min/1.73 m2 POCT glucose Collection Time: 02/14/19 8:37 AM Result Value Ref Range Glucose, POC 93 71 - 98 mg/dL POCT glucose Collection Time: 02/14/19 9:38 AM Result Value Ref Range Glucose, POC 84 71 - 98 mg/dL POCT glucose Collection Time: 02/14/19 10:38 AM Result Value Ref Range Glucose, POC 185 (H) 71 - 98 mg/dL Current Facility-Administered Medications Medication Dose Route Frequency Provider Last Rate Last Dose ??? dextrose (D10W) 10% bolus 1-500 mL 1-500 mL intravenous PRN Sanjuanita Enamorado MD ??? dextrose 5% and sodium chloride 0.45% infusion (premix) 100 mL/hr intravenous Continuous MD Antonietta 100 mL/hr at 02/14/19 0940 100 mL/hr at 02/14/19 0940 ??? dextrose 5% infusion 100 mL/hr intravenous Continuous Sanjuanita Enamorado MD ??? enoxaparin (LOVENOX) syringe 40 mg 40 mg subcutaneous Daily-2100 Sanjuanita Enamorado MD ??? glucagon injection 1 mg 1 mg intramuscular Q30 Min PRN Sanjuanita Enamorado MD ??? insulin regular (HumuLIN R, NovoLIN R) 100 Units in sodium chloride 0.9% 100 mL (1 Units/mL) infusion 6 Units/hr intravenous Titrated Sanjuanita Enamorado MD 4.6 mL/hr at 02/14/19 1141 4.6 Units/hr at 02/14/19 1141 ??? insulin regular bolus from bag 1-10 Units 1-10 Units intravenous PRN Sanjuanita Enamorado MD ??? metoclopramide (REGLAN) injection 5 mg 5 mg intravenous TID Sanjuanita Enamorado MD 5 mg at 02/14/19 1029 ??? ondansetron ODT (ZOFRAN-ODT) disintegrating tablet 4 mg 4 mg oral Q6H PRN Sanjuanita Enamorado MD Or ??? ondansetron (ZOFRAN) injection 4 mg 4 mg intravenous Q6H PRN Sanjuanita Enamorado MD ??? potassium chloride 40 mEq in sodium chloride 0.9% 500 mL IVPB 40 mEq intravenous Q4H PRN MD Antonietta A/P 1. Nausea vomiting, suspect this is secondary to diabetic gastroparesis. Started Reglan 5 mg IV t.i.d., will go up to 10 mg IV t.i.d. As needed. Will keep her on NPO right now. Also other anti emetics will be provided p.r.n.. GI consultation obtained. A planning to do upper endoscopy tomorrow morning. CT abdomen pelvis did not show any gallstones in May 2018 but I am going to do right upper qu adrant ultrasound to evaluate for gallstones or other abnormality. 2. Type 1 diabetes, uncontrolled, currently has hyperglycemia. Currently under insulins stabilization protocol but starting D5 because her sugar was low. 3. History of depression, no exacerbation. 4. DVT prophylaxis, starting Lovenox shots. Code status full code Anticipated length of stay to exceed 2 midnight Moderate complexity Spent 55 minutes Bilious vomiting with nausea Sinus tachycardia Hyperglycemia Diabetic ketoacidosis without coma associated with type 1 diabetes mellitus (CMS/HCC) Diabetic gastroparesis (CMS/HCC) Sanjuanita Enamorado MD Date of Service: 02/14/2019 documented in this encounter Procedure Notes * Warren Phillips MD - 02/15/2019 7:30 AM CDTAssociated Order(s): EGD [facility] Patient Name: Karina Menjivar Procedure Date: 02/15/2019 7:30 AM Date of : 1995 Admit Type: Inpatient Age: 23 Gender: Female Attending MD: Warren Phillips M.D. Room: [facility] ENDOSCOPY ROOM 1 Note Status: Finalized Patient Profile: This is a 23 year old female. The patient have recurrent episodes of nausea vomiting associated with the diabetes ketoacidosis. Procedure: Upper GI endoscopy Indications: Nausea with vomiting Referring MD: Carrie Joseph PA-C Providers: Warren Phillips M.D. Impression: - Normal examined duodenum. - Normal stomach. - Severe ulcerative esophagitis. Rule out Booker's esophagus. Biopsied. Recommendation: - Await pathology results. - Use Protonix (pantoprazole) 40 mg PO BID. - Low fat diabetic diet. - Follow up our GI office as outpatient. Medicines: Monitored Anesthesia Care Complications: No immediate complications. Estimated Blood Loss: Estimated blood loss: none. Procedure: Pre-Anesthesia Assessment: - Prior to the procedure, a History and Physical was performed, and patient medications and allergies were reviewed. The patient's tolerance of previous anesthesia was also reviewed. The risks and benefits of the procedure and the sedation options and risks were discussed with the patient. All questions were answered, and informed consent was obtained. Prior Anticoagulants: The patient has taken no previous anticoagulant or antiplatelet agents. ASA Grade Assessment: III - A patient with severe systemic disease. After reviewing the risks and benefits, the patient was deemed in satisfactory condition to undergo the procedure. The benefits, risks, and alternatives to the procedure and sedation were discussed and informed consent was obtained. The scope was passed under direct vision. The Endoscope GIF-[id number] [id number] was introduced through the mouth, and advanced to the second part of duodenum. The upper GI endoscopy was accomplished without difficulty. The patient tolerated the procedure well. Findings: The examined duodenum was normal. The entire examined stomach was normal. Retroflexion of the stomach and the gastric cardia were normal. LA Grade D (one or more mucosal breaks involving at least 75% of esophageal circumference) esophagitis with no bleeding was found 37 cm from the incisors with ulceration at the GE junction. Biopsies were taken with a cold forceps for histology. Electronically signed by Warren Phillips M.D. Warren Phillips M.D. 02/15/2019 7:51:35 AM Number of Addenda: 0 Note Initiated On: 02/15/2019 7:30 AM Procedure Code(s): --- Professional --- 43190, Esophagogastroduodenoscopy, flexible, transoral; with biopsy, single or multiple Diagnosis Code(s): --- Professional --- K21.0, Gastro-esophageal reflux disease with esophagitis R11.2, Nausea with vomiting, unspecified CPT copyright 2017 [employer]. All rights reserved. The codes documented in this report are preliminary and upon art department head review may be revised to meet current compliance requirements. Recognized by the [employer] for promoting quality in endoscopy documented in this encounter ED Notes * Miryam Medley MD - 02/14/2019 3:11 AM CDTAssociated Order(s): Central Line HPI Chief Complaint Patient presents with ??? Vomiting HPI 3:05 AM Karina Menjivar is a 23 y.o. female w/ PMHx including DM w/ ketoacidosis, gastroenteritis, metabolic alkalosis, and sepsis secondary to gram-negative UTI presenting to the ED complaining of nausea w/ vomiting since 9:30 PM last night. Pt left AMA yesterday evening from [facility] after being diagnosed w/ DKA and gastroparesis. Pt states she is admitted twice a year for DKA. Pt states she was ableto eat while admitted, and believed she was ready to leave the hospital. When pt arrived at home, pt claims she took 10 units of insulin at approximately 6 PM, and began to experience nausea w/ vomiting at approximately 9:30 PM last night. Pt denies fever, SOB, dysuria, vaginal discharge, vaginal bleeding, blood in stool, hematuria, hematemesis, and diarrhea. Pt reports surgical hx including tonsillectomy, , and dilation/curettage. Pt expresses no other complaints at this time. Social Hx: Pt denies EtOH, tobacco, and drug use PCP: KEANU Joseph Per chart review, pt was admitted to [facility] from 02/10-02/13/19 and diagnosed by GI w/ Nausea vomiting secondary to gastroparesis exacerbated and flared up secondary to the diabetes ketoacidosis . Pt left from this encounter AMA. Patient History Patient Active Problem List Diagnosis Date Noted ??? Diabetic ketoacidosis without coma associated with type 1 diabetes mellitus ([facility]/HCC) 02/13/2019 ??? Lactic acidosis 02/11/2019 ??? Depression 02/11/2019 ??? Hematemesis 02/11/2019 ??? Non-intractable vomiting 02/10/2019 ??? Hypokalemia 11/08/2018 ??? Hyperemesis gravidarum with metabolic disturbance 11/08/2018 ??? Less than 8 weeks gestation of ??? Sepsis due to gram-negative UTI ([facility]) 05/27/2018 ??? Type 1 diabetes mellitus with ketoacidosis without coma ([facility]/HCC) ??? Nausea and vomiting 01/02/2018 ??? Dehydration 01/02/2018 ??? Metabolic alkalosis 01/02/2018 ??? Uncontrolled type 1 diabetes mellitus with hyperglycemia ([facility]/HCC) 01/02/2018 ??? Ketonuria 01/02/2018 ??? Thrombocytosis ([facility]/HCC) 01/02/2018 ??? Gastroenteritis ??? Sinus tachycardia ??? [...] Alcohol use: Not Currently ??? Drug use: No Social History Patient does not qualify to have social determinant information on file (likely too young). Social History Narrative ??? Not on file Review of Systems Review of Systems At least 10 systems reviewed and otherwise negative except as in the HPI & nursing notes. Physical Exam ED Triage Vitals [02/13/19 2352] Temp Pulse Resp BP SpO2 37.8 ??C (100 ??F) 121 18 (!) 146/102 97 % Temp src Heart Rate Source Patient Position BP Location FiO2 (%) Temporal -- -- -- -- Physical Exam Vitals signs and nursing note reviewed. Constitutional: General: She is not in acute distress. Appearance: She is well-developed. HENT: Head: Normocephalic and atraumatic. Eyes: Conjunctiva/sclera: Conjunctivae normal. Neck: Musculoskeletal: Normal range of motion and neck supple. Cardiovascular: Rate and Rhythm: Normal rate and regular rhythm. Pulses: Radial pulses are 2+ on the right side and 2+ on the left side. Dorsalis pedis pulses are 2+ on the right side and 2+ on the left side. Heart sounds: Normal heart sounds, S1 normal and S2 normal. No murmur. No friction rub. No gallop. Pulmonary: Effort: Pulmonary effort is normal. No respiratory distress. Breath sounds: Normal breath sounds. No wheezing or rales. Abdominal: General: There is no distension. Palpations: Abdomen is soft. Tenderness: There is no tenderness. There is no guarding or rebound. Musculoskeletal: Normal range of motion. General: No tenderness or deformity. Right lower leg: No edema. Left lower leg: No edema. Skin: General: Skin is warm and dry. Capillary Refill: Capillary refill takes less than 2 seconds. Coloration: Skin is not pale. Findings: No erythema or rash. Neurological: Mental Status: She is alert and oriented to person, place, and time. Cranial Nerves: Cranial nerves are intact. Sensory: Sensation is intact. Motor: Motor function is intact. Comments: Pt's face symmetrical, moving all 4 extremities independently and normally. Psychiatric: Behavior: Behavior normal. MDM MDM Vitals: 02/14/19 0425 02/14/19 0430 02/14/19 0515 02/14/19 0600 BP: 130/86 124/86 (!) 175/100 (!) 157/106 Pulse: 88 91 108 102 Resp: Temp: TempSrc: SpO2: 100% 100% 100% 100% Weight: Height: Labs Reviewed COMPREHENSIVE METABOLIC PANEL - Abnormal Result Value Sodium 131 (*) Potassium, pl 3.7 Chloride 94 (*) CO2 16 (*) Anion gap 21 (*) BUN 6 (*) Creatinine 0.36 (*) Glucose 296 (*) Calcium 9.0 Bilirubin, total 0.6 Protein, pl 6.8 Albumin 4.1 Alk phos 73 ALT 9 AST 15 CBC WITH AUTO DIFFERENTIAL - Abnormal WBC 7.9 Hgb 14.3 Hct 40.3 Plt 354 MPV 9.0 (*) RBC 5.13 MCV 78.6 (*) MCH 27.9 MCHC 35.5 RDW CV 14.9 RDW SD 42.8 NRBC abs 0.00 URINALYSIS AND REFLEX TO MICROSCOPIC - Abnormal Color, ur Yellow Clarity, ur Clear Specific gravity, ur >1.030 (*) pH, urine 6.0 Protein, ur ql Negative Glucose, ur ql 3+ (*) Ketones, ur 3+ (*) Bilirubin, ur Negative Blood, ur Negative Urobilinogen, ur 0.2 Nitrite, ur Negative Leukocyte esterase, ur Negative Narrative: Urine pH is affected by diet, medications, systemic acid-base disturbances, and renal tubular function. pH may affect urinary stone formation. For example, urine pH below 6.0 may help reduce the tendency for calcium phosphate stones and pH greater than 6.0 may reduce the tendency for uric acid stone formation. Source: [employer].Last revised 05-13-2017 POCT GLUCOSE DEVICE - Abnormal Glucose, POC 256 (*) POCT GLUCOSE DEVICE - Abnormal Glucose, POC 281 (*) POCT GLUCOSE DEVICE - Abnormal Glucose, POC 257 (*) POCT GLUCOSE DEVICE - Abnormal Glucose, POC 208 (*) HCG, BLOOD, QUANTITATIVE hCG, quant <5.0 EGFR GFR 153 DIFFERENTIAL AUTO Neutrophil abs 6.2 Imm gran abs 0.0 Lymphocyte abs 1.2 Monocyte abs 0.5 Eosinophil abs 0.0 Basophil abs 0.0 Neutrophil pct 77.7 Imm gran pct 0.4 Lymphocyte pct 14.8 Monocyte pct 6.7 Eosinophil pct 0.1 Basophil pct 0.3 POCT GLUCOSE DEVICE XR Chest 1 Vw Portable ED Interpretation No pneumothorax identified, right IJ appears to be in appropriate position Final Result 1. RIGHT IJ CATHETER WHOSE TIP IS IN THE DISTAL SUPERIOR VENA CAVA. 2. LUNGS CLEAR WITH NO PNEUMOTHORAX. Electronically signed by: Evert Moreno M.D. After multiple attempts for peripheral line by nursing staff, also attempt to place a ultrasound guided peripheral line was unsuccessful so after obtaining informed consent a central line was obtained because of patient's diagnosis of DKA requiring multiple medications of fluids as well as multipleblood draws in a critically ill patient, the patient was consented for IJ and this was placed successfully. Central Line Date/Time: 02/14/2019 4:44 AM Performed by: Miryam Medley MD Authorized by: Miryam Medley MD [place] Protocol: RN Notified of Procedure: yes Informed consent: Risks, benefits, alternatives discussed Patient's stated name/ matches armband: Yes Consent form signed, dated, timed; matches correct patient, intended procedure and site: Yes Lab/Diag test results: Pertinent lab/diag tests reviewed and match to patient identifiers Supplies, devices and special equipment are available: yes Site/side marked: n/a Immediately prior to the procedure a time out was called: a verbal verification by the procedure participants confirmed correct patient identity, correct site/side marked and visible (if applicable);agreement on procedure to be done; and correct patient positioning Indications: Poor peripheral access, nurse unable to get, difficult peripheral access, fluid administration and IV medication Pre-procedure details: Hand hygiene: Hand hygiene performed prior to insertion Sterile barrier technique: All elements of maximal sterile technique followed Skin preparation: ChloraPrep Skin preparation agent: Skin preparation agent completely dried prior to procedure Sedation: Sedation used: no Anesthesia (see MAR for exact dosages): Anesthesia method: Local infiltration Local anesthetic: Lidocaine 1% w/o Procedure details: Location: R internal jugular Patient position: Trendelenburg Procedural supplies: Triple lumen Catheter size: 7 Fr Landmarks identified: yes Ultrasound guidance: yes Ultrasound guidance used for: Real-time guidance Number of attempts: 1 Successful placement: yes Post-procedure details: Post-procedure: Line sutured and dressing applied Assessment: Blood return through all ports, free fluid flow, placement verified by x-ray and no pneumothorax on x-ray Patient tolerance of procedure: Tolerated well, no immediate complications Post Procedure Debrief: All guidewires, needles, sponges or other items are accounted for: yes Any special post procedure monitoring, testing or other considerations: n/a All specimens identified, labeled and matched to patient identification: n/a Responsible libertarian for transporting specimen(s) to lab determined: n/a Comments: Procedure comments: Initially attempted to place peripheral IJ. After 1 unsuccesful attempt w/ US-guidance and not obtaining flash w/ peripheral line I went on to perform central line w/ maximal sterile technique employed. Diabetic ketoacidosis without coma associated with type 1 diabetes mellitus ([facility]) This note was prepared by Pato Machado, acting as a Scribe for Miryam Medley MD. I electronically signed this note at 6:32 AM on 02/14/2019. I, Miryam Medley MD, personally performed the services described in this documentation, reviewed and edited the documentation which was dictated to the scribe in my presence, and it accurately records my words and actions. Miryam Medley MD 02/14/19 0632 * Angel Jolley RN - 02/13/2019 11:51 PM CDT Ambulate to triage c/o was released from hospital today. States was at home and started vomiting atabout 1030 tonight. documented in this encounter Miscellaneous Notes * Plan of Care - Lior Melendez RN - 02/16/2019 2:59 PM CDT Problem: Health Behavior: Goal: Understanding of discharge needs will improve Outcome: Completed Problem: Lack of Knowledge: Goal: Ability to describe self-care measures that may prevent or decrease complications will improve Outcome: Completed Goal: Knowledge of disease or condition will improve Outcome: Completed Goal: Knowledge of the prescribed therapeutic regimen will improve Description Use of Medical Equipment and the Need for Diabetes Identification [facility] Outcome: Completed Goal: Ability to manage health-related needs will improve Outcome: Completed Goal: Ability to identify and alter actions that are detrimental to health will improve Outcome: Completed Goal: Knowledge of prevention and discharge planning will improve Outcome: Completed Problem: Fluid Volume: Goal: Ability to achieve a balanced intake and output will improve Outcome: Completed Goal: Will maintain adequate fluid volume Outcome: Completed Goal: Signs and symptoms of dehydration will decrease Outcome: Completed Problem: Metabolic: Goal: Ability to maintain appropriate glucose levels will improve Outcome: Completed Goal: Diagnostic test results will improve Outcome: Completed Goal: Complications related to the disease process, condition or treatment will be avoided or minimized Outcome: Completed Problem: Nutritional: Goal: Maintenance of adequate nutrition will improve Outcome: Completed Goal: Maintenance of adequate weight for body size and type will improve Outcome: Completed Problem: Physical Regulation: Goal: Will regain or maintain usual level of consciousness Outcome: Completed Goal: Will not experience complications related to bowel motility Outcome: Completed Goal: Will remain free from infection Outcome: Completed Goals: Clinical Goals for the Shift: Stable vitals and labs. No nausea. Summary: Pt transferred from the ICU. Pt is Alert and oriented. Iv fluids infusing. Pt not having any nausea or vomiting. Pt d/c to home after 10 minutes of being on floor. Central line removed. Pt d/c to home. * Plan of Sandhya - Pascual Perry RN - 02/16/2019 6:52 AM CDT Problem: Health Behavior: Goal: Understanding [...] remain free from infection Outcome: Progressing Problem: Lack of Knowledge: Goal: Ability to describe self-care measures that may prevent or decrease complications will improve Outcome: Not Progressing Goal: Knowledge of disease or condition will improve Outcome: Not Progressing Goal: Knowledge of the prescribed therapeutic regimen will improve Description Use of Medical Equipment and the Need for Diabetes Identification Jewelry Outcome: Not Progressing Goal: Ability to manage health-related needs will improve Outcome: Not Progressing Goal: Ability to identify and alter actions that are detrimental to health will improve Outcome: Not Progressing Goal: Knowledge of prevention and discharge planning will improve Outcome: Not Progressing Problem: Nutritional: Goal: Maintenance of adequate nutrition will improve Outcome: Not Progressing Goals: Clinical Goals for the Shift: stable blood glucose. Nausea controlled. No pain or shortness of breath. Summary: No distress this shift. EGD done on prior shift. Refused to take PO protonix, r/t nausea, but no emesis noted. VSS. Blood glucose wnl. Denies any pain or shortness of breath. * Plan of Care - Evert Martinez RN - 02/15/2019 5:23 PM CDT Goals: Clinical Goals for the Shift: stable blood glucose, off the insulin gtt. No nausea & emesis. Stable vs & labs. No pain, anxiety, or shortness of breath. Summary: pt vital signs stable throughout the shift, pt HR and BP elevated at times, pt has had multiple episodes of nausea and vomitting, EGD performed this morning, ulcers found and new medicationsstarted, follow up with GI after discharge, pt blood sugars elevated at times and insulin orders adjusted, pt currently not eating due to nausea, pt up SBA to toilet and has had adequate output, willcontinue with current plan of care. Problem: Health Behavior: Goal: Understanding of discharge [...] Will remain free from infection Outcome: Progressing * Perioperative Nursing Note - Mariaelena Cm RN - 02/15/2019 9:[address] Phillips was here and talked with pt about test results. * Perioperative Nursing Note - Mariaelena Cm, MARY - 02/15/2019 8:54 AM CDT 0854 pt had a sm emesis of lt brown. * Perioperative Nursing Note - Mariaelena Cm, MARY - 02/15/2019 8:50 AM CDT 0845 pt up and amb to the br with assist of one and jeffry well passed lag amt of gas and stool. * Plan of Care - Pascual Perry RN - 02/15/2019 6:47 AM CDT Problem: Lack of Knowledge: Goal: Ability to describe self-care measures that may prevent or decrease complications will improve Outcome: Progressing Goal: Knowledge of disease or condition will improve Outcome: Progressing Goal: Knowledge of the prescribed therapeutic regimen will improve Description Use of Medical Equipment and the Need for Diabetes Identification Jewelry Outcome: Progressing Goal: Ability to identify and [...] health-related needs will improve Outcome: Not Progressing Goals: Clinical Goals for the Shift: stable blood glucose, off the insulin gtt. No nausea & emesis. Stable vs & labs. No pain, anxiety, or shortness of breath. Summary: No distress this shift. Blood glucose wnl. NPO at 2400 for EGD. No c/o pain, nausea, or shortness of breath. Calls out appropriately. * Plan of Care - Ida Hair RN - 02/14/2019 5:28 PM CDT Problem: Lack of Knowledge: Goal: Ability to describe self-care measures that may prevent or decrease complications will improve Outcome: Progressing Goal: Knowledge of disease or condition will improve Outcome: Progressing Goal: Knowledge of the prescribed therapeutic regimen will improve Description Use of Medical Equipment and the Need for Diabetes Identification Jewelry Outcome: Progressing Goal: Ability to identify and [...] Progressing Goals: Clinical Goals for the Shift: maitain stable vital signs, stabilize blood sugar, treat nausea, safety, pt to call for assist when needing to get up from bed, comfort Summary: Vital signs have remained stable. Pt remains on glucose stabilizer with insulin gtt. No further c/o nausea or vomiting after Reglan given. Pt voices understanding to call for help when she needs to get up from bed. No c/o pain or discomfort. documented in this encounter Plan of Treatment Not on file documented as of this encounter Procedures Procedure Name Priority Date/Time Associated Diagnosis Comments POCT GLUCOSE DEVICE Routine 02/16/2019 11:24 AM CDT POCT GLUCOSE DEVICE Routine 02/16/2019 7:43 AM CDT POCT GLUCOSE DEVICE Routine 02/15/2019 9:36 PM CDT POCT GLUCOSE DEVICE Routine 02/15/2019 5:15 PM CDT POCT GLUCOSE DEVICE Routine 02/15/2019 11:34 AM CDT SURGICAL PATHOLOGY STAT 02/15/2019 11:21 AM CDT Diabetic ketoacidosis without coma associated with type 1 diabetes mellitus (CMS/HCC) Non-intractable vomiting with nausea, unspecified vomiting type Esophagitis POCT GLUCOSE DEVICE Routine 02/15/2019 9:29 AM CDT EGD 02/15/2019 7:30 AM CDT ESOPHAGOGASTRODUODENOSCOPY BIOPSY 02/15/2019 7:26 AM CDT Diabetic ketoacidosis without coma associated with type 1 diabetes mellitus (CMS/HCC) Non-intractable vomiting with nausea, unspecified vomiting type POCT GLUCOSE DEVICE Routine 02/15/2019 7:22 AM CDT POCT GLUCOSE DEVICE Routine 02/15/2019 3:46 AM CDT POCT GLUCOSE DEVICE Routine 02/14/2019 9:23 PM CDT POCT GLUCOSE DEVICE Routine 02/14/2019 6:09 PM CDT POCT GLUCOSE DEVICE Routine 02/14/2019 5:03 PM CDT POCT GLUCOSE DEVICE Routine 02/14/2019 4:18 PM CDT EGFR STAT 02/14/2019 3:31 PM CDT BASIC METABOLIC PANEL STAT 02/14/2019 3:31 PM CDT POCT GLUCOSE DEVICE Routine 02/14/2019 3:02 PM CDT POCT GLUCOSE DEVICE Routine 02/14/2019 1:44 PM CDT POCT GLUCOSE DEVICE Routine 02/14/2019 12:46 PM CDT US ABDOMEN LIMITED IP Routine 02/14/2019 12:44 PM CDT POCT GLUCOSE DEVICE Routine 02/14/2019 11:40 AM CDT POCT GLUCOSE DEVICE Routine 02/14/2019 10:38 AM CDT POCT GLUCOSE DEVICE Routine 02/14/2019 9:38 AM CDT POCT GLUCOSE DEVICE Routine 02/14/2019 8:37 AM CDT EGFR STAT 02/14/2019 8:12 AM CDT BASIC METABOLIC PANEL STAT 02/14/2019 8:12 AM CDT POCT GLUCOSE DEVICE Routine 02/14/2019 7:19 AM CDT POCT GLUCOSE DEVICE Routine 02/14/2019 6:06 AM CDT URINALYSIS AND REFLEX TO MICROSCOPIC STAT 02/14/2019 4:57 AM CDT POCT GLUCOSE DEVICE Routine 02/14/2019 4:54 AM CDT XR CHEST 1 VIEW ED 02/14/2019 4:46 AM CDT POCT GLUCOSE DEVICE Routine 02/14/2019 3:45 AM CDT MN INSJ NON-TUNNELED CENTRAL VENOUS CATH AGE 5 YR/> Routine 02/14/2019 3:11 AM CDT DIFFERENTIAL AUTO STAT 02/14/2019 1:34 AM CDT CBC WITH AUTO DIFFERENTIAL STAT 02/14 1:34 AM CDT EGFR STAT 02/14/2019 12:44 AM CDT HCG, BLOOD, QUANTITATIVE STAT 019 12:44 AM CDT COMPREHENSIVE METABOLIC PANEL STAT 12:44 AM CDT POCT GLUCOSE DEVICE Routine 02/13/2019 11:57 PM CDT documented in this encounter Results * (ABNORMAL) POCT glucose (02/16/2019 11:24 AM CDT) Glucose, POC 190(H) 71 - 98 mg/dL [facility] ([place]) Blood specimen (specimen) 02/16/2019 11:24 AM CDT 02/16/2019 11:24 AM CDT us Josette Sloan MD LAB POCT ORDERABLES - DE VICE Final Result Performing Organization Address [facility] Co de Phone Number TOMY [facility] ([place]) [address] [place] [phone] * (ABNORMAL) POCT glucose (02/16/2019 7:43 AM CDT) Glucose, POC 156(H) 71 - 98 mg/dL [facility] Blood specimen (specimen) 02/16/2019 7:43 AM CDT 02/16/2019 7:43 AM CDT us Josette Sloan MD LAB POCT ORDERABLES - DE VICE Final Result Performing Organization Address [facility] Co de Phone Number TOMY [facility] ([place]) [address] [place] [phone] * (ABNORMAL) POCT glucose (02/15/2019 9:36 PM CDT) Glucose, POC 101(H) 71 - 98 mg/dL [facility] ([place]) Blood specimen (specimen) 02/15/2019 9:36 PM CDT 02/15/2019 9:36 PM CDT us Sanjuanita Enamorado MD LAB POCT ORDERABLES - DEVICE Final Result TOMY [facility] ([place]) [address] [place] [address] * (ABNORMAL) POCT glucose (02/15/2019 5:15 PM CDT) Glucose, POC 100(H) 71 - 98 mg/dL [facility] ([place]) Blood specimen (specimen) 02/15/2019 5:15 PM CDT 02/15/2019 5:15 PM CDT Sanjuanita Enamorado MD LAB POCT ORDERABLES - DEVICE Final Result Performing Organization Address City/[facility]/ZIP Co de Phone Number TOMY [facility] ([place]) [address] [place] [phone] * (ABNORMAL) POCT glucose (02/15/2019 11:34 AM CDT) Glucose, POC 200(H) 71 - 98 mg/dL [facility] ([place]) Blood specimen (specimen) 02/15/2019 11:34 AM CDT 02/15/2019 11:34 AM CDT Sanjuanita Enamorado MD LAB POCT ORDERABLES - DEVICE Final Result Performing Organization Address [facility] Co de Phone Number [facility] ([place]) [address] [place] [address] * Surgical pathology (02/15/2019 11:21 AM CDT) Tissue (Gastric/Stomach biopsy) 02/15/2019 7:46 AM CDT Narrative PATHOLOGY [facility] ([place]) - 02/16/2019 1:20 PM CDT EPIC results best viewed via link to PDF [facility] Department of Pathology [address] [place] [id number] Final Report Patient Name: ??KARINA MENJIVAR Address: ??[facility] [address], ??[place], [place] ??[address] Gender: ??F : ??1995 (Age: 23) Service: ??Medical Location: ??[facility] Hospital #: ??[id number] Patient Type: ??[facility] Accession # ?[id number] Taken: ??02/15/2019 Received: ??02/15/2019 Accessioned: ??02/15/2019 Reported: ??02/16/2019 Physician(s):Dr. Warren Phillips M.D. Diagnosis: Gastroesophageal junction, biopsies: ? - Ulcer Sarita Farr M.D. Report Electronically Reviewed and Signed Out By ??Sarita Farr M.D. ??02/16/2019 13:20:35 Specimen(s) Received: A: EG junction biopsy Microscopic Description: Biopsies from the gastroesophageal junction include squamous mucosal epithelium and some neutrophilic exudate. ??The latter finding is indicative of ulceration. ??The strips of intact and recognizable squamous epithelium have an unremarkable appearance by routine light microscopy. ??No neoplastic lesions, pathogenic organisms or viral cytopathic effect is identified by routine light microscopy. ??A PAS stain for fungi is negative. Clinical History: Diabetic ketoacidosis without coma associated with type 1 diabetes mellitus. ??Non-intractable vomiting with nausea. ??GE junction. ??EGD. Gross Description: The specimen is submitted in a single container labeled Karina Taryn Menjivar and GE junction . ??It is five castaneda tissue fragment measuring 1-2 mm. ??All in one cassette. ??Lex Hope M.D./Shelton López, P.A. REPORT IMAGES AND SCANNED DOCUMENTS, IF INCLUDED, ONLY VIEWABLE IN PDF VERSION OF REPORT The performance characteristics of some immunohistochemical stains, fluorescence in-situ hybridization tests and immunophenotyping by flow cytometry cited in this report (if any) were determined by the Surgical Pathology Department at [facility] as part of an ongoing manager quality improvement program and in compliance with federally mandated regulations drawn from the Clinical Laboratory Improvement Act of 1988 (CLIA '88). ??Some of these tests rely on the use of analyte specific reagents and are subject to specific labeling requirements by the US Food and Drug Administration. ??Such diagnostic tests may only be performed in a facility that is certified by the Department of Health and Human Services as a high complexity laboratory under CLIA '88. The FDA has determined that such clearance or approval is not necessary. ??This test is used for clinical purposes. ??It should not be regarded as investigational or for research. ??Nevertheless, federal rules concerning the medical use of analyte specific reagents require that the following disclaimer be attached to the report: This test was developed and its performance characteristics determined by the Surgical Pathology Department [facility]. ??It has not been cleared or approved by the U. S. Food and Drug Administration. us Warren Phillips MD LAB PATHOLOGY ORDERABLES F inal Result Performing Organization Address [facility]/ZIP Co de Phone Number PATHOLOGY [facility] ([place]) [address] [place] [address] * (ABNORMAL) POCT glucose (02/15/2019 9:29 AM CDT) Glucose, POC 221(H) 71 - 98 mg/dL [facility] ([place]) Blood specimen (specimen) 02/15/2019 9:29 AM CDT 02/15/2019 9:29 AM CDT us Sanjuanita Enamorado MD LAB POCT ORDERABLES - DEVICE Final Result Performing Organization Address [facility] Co de Phone Number [facility] ([place]) [address] [place] [phone] * EGD (02/15/2019 7:30 AM CDT) Anatomical Region Laterality Modality Other Narrative Procedure Note Warren Phillips MD - 02/15/2019 7:30 AM CDT [facility] Patient Name: Karina Menjivar Procedure Date: 02/15/2019 7:30 AM Date of : 1995 Admit Type: Inpatient Age: 23 Gender: Female Attending MD: Warren Phillips M.D. Room: [facility] ENDOSCOPY ROOM 1 Note Status: Finalized Patient Profile: This is a 23 year old female. The patient have recurrent episodes of nausea vomiting associatedwith the diabetes ketoacidosis. Procedure: Upper GI endoscopy Indications: Nausea with vomiting Referring MD: Carrie Joseph PA-C Providers: Warren Phillips M.D. Impression: - Normal examined duodenum. - Normal stomach. - Severe ulcerative esophagitis. Rule out Booker's esophagus. Biopsied. Recommendation: - Await pathology results. - Use Protonix (pantoprazole) 40 mg PO BID. - Low fat diabetic diet. - Follow up our GI office as outpatient. Medicines: Monitored Anesthesia Care Complications: No immediate complications. Estimated Blood Loss: Estimated blood loss: none. Procedure: Pre-Anesthesia Assessment: - Prior to the procedure, a History and Physical was performed, and patient medications and allergieswere reviewed. The patient's tolerance of previous anesthesia was also reviewed. The risks and benefitsof the procedure and the sedation options and riskswere discussed with the patient. All questions were answered, and informed consent was obtained. Prior Anticoagulants: The patient has taken no previous anticoagulant or antiplatelet agents. ASA Grade Assessment: III - A patient with severe systemic disease. After reviewing the risks and benefits, the patient was deemed in satisfactory condition toundergo the procedure. The benefits, risks, and alternatives to theprocedure and sedation were discussed and informed consent was obtained. The scope was passed under direct vision.The Endoscope GIF-H190 [id number] was introduced throughthe mouth, and advanced to the second part of duodenum.The upper GI endoscopy was accomplished withoutdifficulty. The patient tolerated the procedure well. Findings: The examined duodenum was normal. The entire examined stomach was normal. Retroflexion of the stomachand the gastric cardia were normal. LA Grade D (one or more mucosal breaks involving at least 75% of esophageal circumference) esophagitis with no bleeding was found 37cm from the incisors with ulceration at the GE junction. Biopsies were taken with a cold forceps for histology. Electronically signed by Warren Phillips M.D. Warren Phillips M.D. 02/15/2019 7:51:35 AM Number of Addenda: 0 Note Initiated On: 02/15/2019 7:30 AM Procedure Code(s): --- Professional --- 19183, Esophagogastroduodenoscopy, flexible, transoral; with biopsy, single or multiple Diagnosis Code(s): --- Professional --- K21.0, Gastro-esophageal reflux disease with esophagitis R11.2, Nausea with vomiting, unspecified CPT copyright 2017 [employer]. All rights reserved. The codes documented in this report are preliminary and upon art department head reviewmay be revised to meet current compliance requirements. Recognized by the [employer] for promoting quality in endoscopy Warren Phillips MD ENDOSCOPY PROCEDURES Final Result * (ABNORMAL) POCT glucose (02/15/2019 7:22 AM CDT) Glucose, POC 158(H) 71 - 98 mg/dL TOMY SAHU ([place]) Blood specimen (specimen) 02/15/2019 7:22 AM CDT 02/15/2019 7:22 AM CDT Sanjuainta Enamorado MD LAB POCT ORDERABLES - DEVICE Final Result TOMY SAHU ([place]) [address] [place] [address] * (ABNORMAL) POCT glucose (02/15/2019 3:46 AM CDT) Glucose, POC 108(H) 71 - 98 mg/dL TOMY SAHU ([place]) Blood specimen (specimen) 02/15/2019 3:46 AM CDT 02/15/2019 3:46 AM CDT us Gio Sewell MD LAB POCT ORDERABLES - DEVICE Final Result Performing Organization Address [facility] Co de Phone Number TOMY SAHU ([place]) [address] [place] [address] * (ABNORMAL) POCT glucose (02/14/2019 9:23 PM CDT) Glucose, POC 185(H) 71 - 98 mg/dL TOMY SAHU ([place]) Blood specimen (specimen) 02/14/2019 9:23 PM CDT 02/14/2019 9:23 PM CDT us Gio Sewell MD LAB POCT ORDERABLES - DEVICE Final Result Performing Organization Address [facility]/ZIP Co de Phone Number TOMY SAHU ([place]) [address] [place] [address] * POCT glucose (02/14/2019 6:09 PM CDT) Glucose, POC 91 71 - 98 mg/dL TOMY SAHU ([place]) Blood specimen (specimen) 02/14/2019 6:09 PM CDT 02/14/2019 6:09 PM CDT us Gio Sewell MD LAB POCT ORDERABLES - DEVICE Final Result Performing Organization Address City/[facility]/ZIP Co de Phone Number TOMY SAHU ([place]) [address] [place] [address] * POCT glucose (02/14/2019 5:03 PM CDT) Glucose, POC 89 71 - 98 mg/dL TOMY SAHU ([place]) Blood specimen (specimen) 02/14/2019 5:03 PM CDT 02/14/2019 5:03 PM CDT Gio Sewell MD LAB POCT ORDERABLES - DEVICE Final Result Performing Organization Address [facility]/ZIP Co de Phone Number TOYM SAHU ([place]) [address] [place] [address] * POCT glucose (02/14/2019 4:18 PM CDT) Pathologist [facility] Glucose, POC 77 71 - 98 mg/dL TOYM [facility] ([place]) Blood specimen (specimen) 02/14/2019 4:18 PM CDT 02/14/2019 4:18 PM CDT us Gio Sewell MD LAB POCT ORDERABLES - DEVICE Final Result Performing Organization Address [facility] Co de Phone Number TOMY SAHU ([place]) [address] [place] [address] * eGFR (02/14/2019 3:31 PM CDT) eGFR 154 mL/min/1.7 3 m2 TOMY [facility] ([place]) Comment: Interpretive Data Reference Interval Normal ?>/= 90 mL/min/1.73m2 Mildly decreased* ? 60 - 89 mL/min/1.73m2 Mildly to moderately decreased ?45 - 59 mL/min/1.73m2 Moderately to severely decreased ??30 - 44 mL/min/1.73m2 Severely decreased ?15 - 29 mL/min/1.73m2 Kidney Failure ?< 15 ??mL/min/1.73m2 *Relative to young adult level If -Tajik multiply value by 1.16. Estimated glomerular filtration [...] was last reviewed 2015. Blood specimen (specimen) 02/14/2019 3:31 PM CDT 02/14/2019 3:34 PM CDT us Sanjuanita Enamorado MD LAB BLOOD ORDERABLES Final Re sult [facility] ([place]) [address] [place] [address] * (ABNORMAL) Basic metabolic panel (02/14/2019 3:31 PM CDT) Sodium 139 135 - 145 mmol/L [facility] ([place]) Potassium, pl 3.5 3.3 - 4.9 mmol/L [facility] ([place]) Chloride 104 97 - 110 mmol/L [facility] ([place]) CO2 23 22 - 32 mmol/L [facility] ([place]) Anion gap 13 2 - 15 mmol/L [facility] ([place]) BUN 8 8 - 25 mg/dL [facility] ([place]) Creatinine 0.35(L) 0.60 - 1.10 mg/dL [facility] ([place]) Glucose 88 70 - 199 mg/dL [facility] ([place]) Comment: Interpretive Data Fasting [...] mg/dL TOMY SAHU ([place]) Blood specimen (specimen) 02/14/2019 3:31 PM CDT 02/14/2019 3:34 PM CDT us Sanjuanita Enamorado MD LAB BLOOD ORDERABLES Final Re sult Performing Organization Address [facility]/ZIP Co de Phone Number TOMY SAHU ([place]) [address] [place] [address] * POCT glucose (02/14/2019 3:02 PM CDT) Glucose, POC 77 71 - 98 mg/dL TOMY SAHU ([place]) Blood specimen (specimen) 02/14/2019 3:02 PM CDT 02/14/2019 3:02 PM CDT us Gio Sewell MD LAB POCT ORDERABLES - DEVICE Final Result Performing Organization Address [facility] Co de Phone Number TOMY SAHU ([place]) [address] [place] [address] * (ABNORMAL) POCT glucose (02/14/2019 1:44 PM CDT) Glucose, POC 115(H) 71 - 98 mg/dL TOMY SAHU ([place]) Blood specimen (specimen) 02/14/2019 1:44 PM CDT 02/14/2019 1:44 PM CDT Gio Sewell MD LAB POCT ORDERABLES - DEVICE Final Result Performing Organization Address [facility] Co de Phone Number TOMY SAHU ([place]) [address] [place] [address] * (ABNORMAL) POCT glucose (02/14/2019 12:46 PM CDT) Glucose, POC 153(H) 71 - 98 mg/dL TOMY SAHU ([place]) Blood specimen (specimen) 02/14/2019 12:46 PM CDT 02/14/2019 12:46 PM CDT us Gio Sewell MD LAB POCT ORDERABLES - DEVICE Final Result TOMY SAHU [place]) [address] [place], [place] [id number] * US Abdomen Limited (02/14/2019 12:44 PM CDT) Anatomical Region Laterality Modality Abdomen N/A Ultrasound 02/14/2019 1:19 PM CDT Impressions 02/14/2019 1:21 PM CDT #1 GALLBLADDER UNREMARKABLE, NO GALLSTONES IDENTIFIED. 2. ??EVIDENCE OF HEPATIC STEATOSIS. 3. PANCREAS POORLY VISUALIZED. 4. ??RIGHT RENAL CYST. Electronically signed by: Kevin Diaz M.D Narrative 02/14/2019 1:21 PM CDT US ABDOMEN LIMITED HISTORY: Need right upper quadrant ultrasound for persistent nausea and bilious vomiting. TECHNIQUE: Longitudinal and transverse real-time scans are obtained. COMPARISON: None available. FINDINGS: Gallbladder unremarkable, no gallstone seen. ??Evidence of hepatic steatosis. ??For the right kidney, non-necrosis. ??A cyst towards the upper pole the right kidney measures 1.8 x 1.8 x 1.4 cm. Pancreas poorly visualized, obscured by bowel gas. ??No abdominal aortic aneurysm identified. Procedure Note Kevin Diaz MD - 02/14/2019 US ABDOMEN LIMITED HISTORY: Need right upper quadrant ultrasound for persistent nausea and bilious vomiting. TECHNIQUE: Longitudinal and transverse real-time scans are obtained. COMPARISON: None available. FINDINGS: Gallbladder unremarkable, no gallstone seen. Evidence of hepatic steatosis. For the right kidney, non-necrosis. A cyst towards the upper pole the right kidney measures 1.8 x 1.8 x 1.4 cm. Pancreas poorly visualized, obscured by bowel gas. No abdominal aortic aneurysm identified. IMPRESSION: #1 GALLBLADDER UNREMARKABLE, NO GALLSTONES IDENTIFIED. 2. EVIDENCE OF HEPATIC STEATOSIS. 3. PANCREAS POORLY VISUALIZED. 4. RIGHT RENAL CYST. Electronically signed by: Kevin Diaz M.D us Sanjuanita Enamorado MD IMG US PROCEDURES Final Resul t * (ABNORMAL) POCT glucose (02/14/2019 11:40 AM CDT) Glucose, POC 174(H) 71 - 98 mg/dL [facility] ([place]) Blood specimen (specimen) 02/14/2019 11:40 AM CDT 02/14/2019 11:40 AM CDT us Gio Sewell MD LAB POCT ORDERABLES - DEVICE Final Result Performing Organization Address [facility]/ZIP Co de Phone Number [facility] ([place]) [address] [place] [address] * (ABNORMAL) POCT glucose (02/14/2019 10:38 AM CDT) Glucose, POC 185(H) 71 - 98 mg/dL [facility] ([place]) Blood specimen (specimen) 02/14/2019 10:38 AM CDT 02/14/2019 10:38 AM CDT Gio Sewell MD LAB POCT ORDERABLES - DEVICE Final Result Performing Organization Address [facility] Co de Phone Number [facility] ([place]) [address] [place] [address] * POCT glucose (02/14/2019 9:38 AM CDT) Glucose, POC 84 71 - 98 mg/dL [facility] ([place]) Blood specimen (specimen) 02/14/2019 9:38 AM CDT 02/14/2019 9:38 AM CDT Gio Sewell MD LAB POCT ORDERABLES - DEVICE Final Result Performing Organization Address [facility] Co de Phone Number [facility] ([place]) [address] [place] [address] * POCT glucose (02/14/2019 8:37 AM CDT) Glucose, POC 93 71 - 98 mg/dL TOMY [facility] ([place]) Blood specimen (specimen) 02/14/2019 8:37 AM CDT 02/14/2019 8:37 AM CDT Gio Sewell MD LAB POCT ORDERABLES - DEVICE Final Result TOMY SAHU ([place]) [address] [place] [address] * eGFR (02/14/2019 8:12 AM CDT) eGFR 147 mL/min/1.7 3 m2 TOMY [facility]ERTO ([place]) Comment: Interpretive Data Reference Interval Normal ?>/= 90 mL/min/1.73m2 Mildly decreased* ? 60 - 89 mL/min/1.73m2 Mildly to moderately decreased ?45 - 59 mL/min/1.73m2 Moderately to severely decreased ??30 - 44 mL/min/1.73m2 Severely decreased ?15 - 29 mL/min/1.73m2 Kidney Failure ?< 15 ??mL/min/1.73m2 *Relative to young adult level If -Tajik multiply value by 1.16. Estimated glomerular filtration [...] was last reviewed 2015. Blood specimen (specimen) 02/14/2019 8:12 AM CDT 02/14/2019 8:19 AM CDT us Sanjuanita Enamorado MD LAB BLOOD ORDERABLES Final Re sult Performing Organization Address City/[facility]/ZIP Co de Phone Number TOMY SAUH ([place]) [address] [place] [address] * (ABNORMAL) Basic metabolic panel (02/14/2019 8:12 AM CDT) Sodium 141 135 - 145 mmol/L [facility] ([place]) Potassium, pl 3.8 3.3 - 4.9 mmol/L [facility] ([place]) Chloride 105 97 - 110 mmol/L [facility] ([place]) CO2 21(L) 22 - 32 mmol/L [facility] ([place]) Anion gap 15 2 - 15 mmol/L [facility] ([place]) BUN 8 8 - 25 mg/dL [facility] ([place]) Creatinine 0.41(L) 0.60 - 1.10 mg/dL [facility] ([place]) Glucose 120 70 - 199 mg/dL [facility] ([place]) Comment: Interpretive Data Fasting [...] 2017. Calcium 8.6 8.5 - 10.3 mg/dL [facility] ([place]) Blood specimen (specimen) 02/14/2019 8:12 AM CDT 02/14/2019 8:19 AM CDT us Sanjuanita Enamorado MD LAB BLOOD ORDERABLES Final Re sult Performing Organization Address City/[facility]/ZIP Co de Phone Number TOMY SAHU ([place]) [address] [place] [address] * (ABNORMAL) POCT glucose (02/14/2019 7:19 AM CDT) Glucose, POC 162(H) 71 - 98 mg/dL [facility] ([place]) Blood specimen (specimen) 02/14/2019 7:19 AM CDT 02/14/2019 7:19 AM CDT Kitty Tong Rodrigues MD LAB POCT ORDERABLES - DEVICE Final Result Performing Organization Address [facility] de Phone Number TOMY SAHU ([place]) [address] [place] [address] * (ABNORMAL) POCT glucose (02/14/2019 6:06 AM CDT) Glucose, POC 208(H) 71 - 98 mg/dL [facility] ([place]) Comment:Glu2: INSULIN GTT Blood specimen (specimen) 02/14/2019 6:06 AM CDT 02/14/2019 6:06 AM CDT Kitty Tong Rodrigues MD LAB POCT ORDERABLES - DEVICE Final Result Performing Organization Address [facility] de Phone Number TOMY SAHU ([place]) [address] [place] [address] * (ABNORMAL) Urinalysis reflex to microscopic (02/14/2019 4:57 AM CDT) Color, ur Yellow Yellow [facility] ([place]) Clarity, ur Clear Clear [facility] ([place]) Specific gravity, ur >1.030(H) 1.010 - 1.025 [facility] ([place]) pH, urine 6.0 [facility] ([place]) Protein, ur ql Negative Negative [facility] ([place]) Glucose, ur ql 3+(A) Negative [facility] ([place]) Ketones, ur 3+(A) Negative [facility] ([place]) Bilirubin, ur Negative Negative [facility] ([place]) Blood, ur Negative Negative [facility] ([place]) Urobilinogen, ur 0.2 mg/dL [facility] ([place]) Nitrite, ur Negative Negative [facility] ([place]) Leukocyte esterase, ur Negative Negative TOMY [facility] ([place]) Urine 02/14/2019 4:57 AM CDT 02/14/2019 5:00 AM CDT Narrative TOMY SAHU ([place]) - 02/14/2019 5:07 AM CDT ?? Urine pH is affected by diet, medications, systemic acid-base disturbances, and renal tubular function. ??pH may affect urinary stone formation. ??For example, urine pH below 6.0 may help reduce the tendency for calcium phosphate stones and pH greater than 6.0 may reduce the tendency for uric acid stone formation. Source: [facility] [employer]. Last revised 05-13-2017 us Miryam Medley MD LAB URINE ORDERABLES Fin al Result Performing Organization Address City/[facility]/ZIP Co de Phone Number TOMY [facility] ([place]) [address] [place] [address] * (ABNORMAL) POCT glucose (02/14/2019 4:54 AM CDT) Glucose, POC 257(H) 71 - 98 mg/dL TOMY [facility] ([place]) Blood specimen (specimen) 02/14/2019 4:54 AM CDT 02/14/2019 4:54 AM CDT Kitty Rodrigues MD LAB POCT ORDERABLES - DEVICE Final Result Performing Organization Address [facility]/ZIP Co de Phone Number TOMY SAHU ([place]) [address] [place] [address] * XR Chest 1 Vw Portable (02/14/2019 4:46 AM CDT) Anatomical Region Laterality Modality Body, Chest N/A Computed Radiogr aphy 02/14/2019 5:56 AM CDT Impressions 02/14/2019 5:59 AM CDT 1. ??RIGHT IJ CATHETER WHOSE TIP IS IN THE DISTAL SUPERIOR VENA CAVA. 2. ??LUNGS CLEAR WITH NO PNEUMOTHORAX. Electronically signed by: Evert Moreno M.D. Narrative 02/14/2019 5:59 AM CDT XR CHEST 1 VIEW HISTORY: Nausea. ??Emesis. ??DKA. ??Central line placement. COMPARISON: Chest CT 05/29/2018 FINDINGS: Heart is normal in size. ??Lungs are clear with no pleural effusion. ??There is a right IJ catheter whose tip is in the distal superior vena cava. ??There is no pneumothorax. Procedure Note Evert Moreno MD - 02/14/2019 XR CHEST 1 VIEW HISTORY: Nausea. Emesis. DKA. Central line placement. COMPARISON: Chest CT 05/29/2018 FINDINGS: Heart is normal in size. Lungs are clear with no pleural effusion. There is a right IJ catheter whose tip is in the distal superior vena cava. There is no pneumothorax. IMPRESSION: 1. RIGHT IJ CATHETER WHOSE TIP IS IN THE DISTAL SUPERIOR VENA CAVA. 2. LUNGS CLEAR WITH NO PNEUMOTHORAX. Electronically signed by: Evert Moreno M.D. us Miryam Medley MD IMG XR PROCEDURES Final Result * (ABNORMAL) POCT glucose (02/14/2019 3:45 AM CDT) Glucose, POC 281(H) 71 - 98 mg/dL TOMY SAHU ([place]) Blood specimen (specimen) 02/14/2019 3:45 AM CDT 02/14/2019 3:45 AM CDT Notinfile Unknown LAB POCT ORDERABLES - DEVICE F inal Result TOMY SAHU ([place]) [address] [place] [address] * [place] INSJ NON-TUNNELED CENTRAL VENOUS CATH AGE 5 YR/> (02/14/2019 3:11 AM CDT) Narrative Miryam Medley MD - 02/14/2019 3:11 AM CDT Miryam Medley MD ? 02/14/2019 ??6:32 AM Central Line Date/Time: 02/14/2019 4:44 AM Performed by: Miryam Medley MD Authorized by: Miryam Medley MD [facility] Protocol: ??RN Notified of Procedure: yes ?Informed consent: ??Risks, benefits, alternatives discussed ??Patient's stated name/ matches armband: ??Yes ??Consent form signed, dated, timed; matches correct patient, intended procedure and site: ??Yes ??Lab/Diag test results: ??Pertinent lab/diag tests reviewed and match to patient identifiers ??Supplies, devices and special equipment are available: yes ?Site/side marked: n/a ?Immediately prior to the procedure a time out was called: a verbal verification by the procedure participants confirmed correct patient identity, correct site/side marked and visible (if applicable); agreement on procedure to be done; and correct patient positioning ?? Indications: ??Poor peripheral access, nurse unable to get, difficult peripheral access, fluid administration and IV medication Pre-procedure details: ??Hand hygiene: Hand hygiene performed prior to insertion ?Sterile barrier technique: All elements of maximal sterile technique followed ?Skin preparation: ??ChloraPrep ??Skin preparation agent: Skin preparation agent completely dried prior to procedure ?? Sedation: ??Sedation used: no ?? Anesthesia (see MAR for exact dosages): ??Anesthesia method: ??Local infiltration ??Local anesthetic: ??Lidocaine 1% w/o Procedure details: ??Location: ??R internal jugular ??Patient position: ??Trendelenburg ??Procedural supplies: ??Triple lumen ??Catheter size: ??7 Fr ??Landmarks identified: yes ?Ultrasound guidance: yes ?Ultrasound guidance used for: ??Real-time guidance ??Number of attempts: ??1 ??Successful placement: yes ?? Post-procedure details: ??Post-procedure: ??Line sutured and dressing applied ??Assessment: ??Blood return through all ports, free fluid flow, placement verified by x-ray and no pneumothorax on x-ray ??Patient tolerance of procedure: ??Tolerated well, no immediate complications Post Procedure Debrief: ??All guidewires, needles, sponges or other items are accounted for: yes ?Any special post procedure monitoring, testing or other considerations: n/a ?All specimens identified, labeled and matched to patient identification: n/a ?Responsible libertarian for transporting specimen(s) to lab determined: n/a ?? Comments: ??Procedure comments: ??Initially attempted to place peripheral IJ. After 1 unsuccesful attempt w/ US-guidance and not obtaining flash w/ peripheral line I went on to perform central line w/ maximal sterile technique employed. us Miryam Medley MD IN CLINIC/BEDSIDE ORDERA BLES Final Result * Differential, auto (02/14/2019 1:34 AM CDT) Neutrophil abs 6.2 1.7 - 6.5 K/cumm [facility] ([place]) Imm gran abs 0.0 0.0 - 0.1 K/cumm [facility] ([place]) Lymphocyte abs 1.2 0.8 - 3.3 K/cumm [facility] ([place]) Monocyte abs 0.5 0.2 - 0.8 K/cumm [facility] ([place]) Eosinophil abs 0.0 0.0 - 0.5 K/cumm [facility] ([place]) Basophil abs 0.0 0.0 - 0.1 K/cumm [facility] ([place]) Neutrophil pct 77.7 % [facility] ([place]) Comment: Interpretive [...] was last revised on 2017. Monocyte pct 6.7 % [facility] ([place]) Comment: Interpretive Data [...] last revised on 2017. Blood specimen (specimen) 02/14/2019 1:34 AM CDT 02/14/2019 1:44 AM CDT us Miryam Medley MD LAB BLOOD ORDERABLES Fin al Result [facility] ([place]) [address] [place] [address] * (ABNORMAL) CBC with auto differential (02/14/2019 1:34 AM CDT) WBC 7.9 3.8 - 9.9 K/cumm [facility] ([place]) Hgb 14.3 11.9 - 15.5 g/dL [facility] ([place]) Hct 40.3 35.6 - 45.5 % [facility] ([place]) Plt 354 150 - 400 K/cumm [facility] ([place]) MPV 9.0(L) 9.1 - 12.3 fL [facility] ([place]) RBC 5.13 3.90 - 5.20 M/cumm [facility] ([place]) MCV 78.6(L) 81.3 - 96.4 fL [facility] ([place]) MCH 27.9 27.1 - 33.3 pg [facility] ([place]) MCHC 35.5 32.3 - 35.7 g/dL [facility] ([place]) RDW CV 14.9 11.1 - 14.9 % [facility] ([place]) RDW SD 42.8 35.7 - 48.1 fL [facility] ([place]) NRBC abs 0.00 0.00 - 0.01 K/cumm [facility] ([place]) Blood specimen (specimen) 02/14/2019 1:34 AM CDT 02/14/2019 1:44 AM CDT us Miryam Medley MD LAB BLOOD ORDERABLES Fin al Result TOMY [facility] ([place]) [address] [place] [address] * eGFR (02/14/2019 12:44 AM CDT) eGFR 153 mL/min/1.7 3 m2 TOMY SAHU ([place]) Comment: Interpretive Data Reference Interval Normal ?>/= 90 mL/min/1.73m2 Mildly decreased* ? 60 - 89 mL/min/1.73m2 Mildly to moderately decreased ?45 - 59 mL/min/1.73m2 Moderately to severely decreased ??30 - 44 mL/min/1.73m2 Severely decreased ?15 - 29 mL/min/1.73m2 Kidney Failure ?< 15 ??mL/min/1.73m2 *Relative to young adult level If -Tajik multiply value by 1.16. Estimated glomerular filtration [...] was last reviewed 2015. Blood specimen (specimen) 02/14/2019 12:44 AM CDT 02/14/2019 12:49 AM CDT Miryam Medley MD LAB BLOOD ORDERABLES Fin al Result Performing Organization Address City/[facility]/ZIP Co de Phone Number TOMY SAHU ([place]) [address] [place] [address] * hCG, blood, quantitative (02/14/2019 12:44 AM CDT) Pathologist [facility] hCG, quant <5.0 0.0 - 5.0 IUnits/L [facility] ([place]) Comment: Interpretive Data Non- Female premenopausal: < or = 5.0 IUnits/L Men: < 5.0 IUnits/L Weeks of Gestation ? Reference Interval ?? 3 to 6 ? 5.8-31,795 IUnits/L ?? 7 to 10 ? 3,697-186,977 IUnits/L ??12 to 15 ?27,832- 70,791 IUnits/L ??16 to 18 ? 9,040- 58,179 IUnits/L Current Interpretive Data was last revised on 2017. Blood specimen (specimen) 02/14/2019 12:44 AM CDT 02/14/2019 12:49 AM CDT us Miryam Medley MD LAB BLOOD ORDERABLES Fin al Result TOMY SAHU ([place]) [address] [place] [address] * (ABNORMAL) Comprehensive metabolic panel (02/14/2019 12:44 AM CDT) Pathologist [facility] Sodium 131(L) 135 - 145 mmol/L [facility] ([place]) Potassium, pl 3.7 3.3 - 4.9 mmol/L [facility] ([place]) Chloride 94(L) 97 - 110 mmol/L [facility] ([place]) CO2 16(L) 22 - 32 mmol/L [facility] ([place]) Anion gap 21(H) 2 - 15 mmol/L [facility] ([place]) BUN 6(L) 8 - 25 mg/dL [facility] ([place]) Creatinine 0.36(L) 0.60 - 1.10 mg/dL [facility] ([place]) Glucose 296(H) 70 - 199 mg/dL [facility] ([place]) [...] 5.0 g/dL [facility] ([place]) Alk phos 73 40 - 130 Units/L [facility] ([place]) ALT 9 7 - 45 Units/L [facility] ([place]) AST 15 10 - 45 Units/L [facility] ([place]) Comment:Slightly Hemolyzed S pecimen Blood specimen (specimen) 02/14/2019 12:44 AM CDT 02/14/2019 12:49 AM CDT us Miryam Medley MD LAB BLOOD ORDERABLES Fin al Result [facility] ([place] [address] [place], [place] [id number] * (ABNORMAL) POCT glucose (02/13/2019 11:57 PM CDT) Pathologist [facility] Glucose, POC 256(H) 71 - 98 mg/dL [facility] ([place]) Blood specimen (specimen) 02/13/2019 11:57 PM CDT 02/13/2019 11:57 PM CDT us Notinfile Unknown LAB POCT ORDERABLES - DEVICE F inal Result TOMY SAHU ([place]) [address] [place], [place] [id number] documented in this encounter Visit Diagnoses Diagnosis Bilious vomiting with nausea- Primary Diabetic ketoacidosis without coma associated with type 1 diabetes mellitus (CMS/HCC) (HCC) Non-intractable vomiting with nausea, unspecified vomiting type Esophagitis Unspecified esophagitis Diabetic gastroparesis (CMS/HCC) (HCC) Type II or unspecified type diabetes mellitus with neurological manifestations, not stated as uncontrolled Hyperglycemia Other abnormal glucose Sinus tachycardia Other specified cardiac dysrhythmias Ulcerative esophagitis Other esophagitis Diabetic ketoacidosis without coma associated with type 1 diabetes mellitus (CMS/HCC) (HCC) Non-intractable vomiting with nausea, unspecified vomiting type documented in this encounter Admitting Diagnoses Diagnosis Diabetic ketoacidosis without coma associated with type 1 diabetes mellitus (CMS/HCC) ([facility]) Non-intractable vomiting documented in this encounter Administered Medications Inactive Administered Medications - up to 3 most recent administrations Medication Order MAR Action Action Date Dose Rate Site dextrose (D10W) 10% bolus 250 mL 250 mL, intravenous, at 1,000 mL/hr, Administer over 15 Minutes, Every 15 min PRN, blood glucose less than 70 mg/dL and UNABLE to swallow/take PO glucose/juice., Starting on Wed02/14/19 at 1822, After treatment for hypoglycemia, recheck BG followed [...] glucose less than 70 mg/dL, Starting on Wed02/14/19 at 1822, If patient is alert and able to [...] of hypoglycemia., Indications: hypoglycemic disorderIndications:hypogl ycemic disorder glucagon injection 1 mg 1 mg, intramuscular, Administer over 1 Minutes, Every 30 min PRN, low blood sugar, blood glucose less than 70 mg/dL AND no IV access AND unable to take PO glucose/jiuce., Starting on Wed02/14/19 at 1822, After Glucagon is administered, position patient on [...] MD for each episode of hypoglycemia., Indications: HypoglycemiaIndications:Hy poglycemia insulin glargine (LANTUS,BASAGLAR) pen injection 5 Units 5 Units, subcutaneous, Nightly, First dose on Wed02/14/19 at 1915, Do not mix with other insulins, Indications: Diabetes MellitusIndications:Diabet es Mellitus Given 02/15/2019 9:42 PM CDT 5 Units Right Upper Arm Given 02/14/2019 7:41 PM CDT 5 Units Ri ght Upper Arm insulin lispro (HumaLOG) pen injection 1-3 Units 1-3 Units, subcutaneous, Nightly, First dose on Wed02/14/19 at 2100, Blood Sugar Mid Dose PM - PO patients 175 or less No insulin 176 - 200 1 unit 201 - 250 2 units 251 - 299 3 units Greater than 299 Call MD for hyperglycemia management instructions Do NOT hold for NPO status., Indications: Diabetes MellitusIndications:Diabetes Mellitus Given 02/14/2019 9:23 PM CDT 1 Units Right Upper Arm insulin lispro (HumaLOG) pen injection 1-5 Units 1-5 Units, subcutaneous, 3 times daily with meals, First dose on Wed02/14/19 at 1915, Blood Sugar Mid Dose meal time - PO patients 139 or less No insulin 140 - 175 1 unit 176 - 200 2 unit 201 - 250 3 units 251 - 299 5 units Greater than 299 Call MD for hyperglycemia management instructions Do NOT hold for NPO status., Indications: Diabetes MellitusIndications:Diabetes Mellitus Given 02/16/2019 11:25 AM CDT 2 Units Left Upper Arm Given 02/16/2019 7:48 AM CDT 1 Units Ri ght Upper Arm Given 02/15/2019 11:44 AM CDT 2 Units R ight Upper Arm insulin lispro (HumaLOG) pen injection 5 Units 5 Units, subcutaneous, 3 times daily with meals, First dose (after last modification) on Wed02/15/19 at 1800, If BG 100 mg/dl or more, give [...] adjustment in patient's insulin dose., Indications: Diabetes MellitusIndications:Diabetes Mellitus Given 02/16/2019 11:25 AM CDT 5 Units Left Upper Arm Given 02/16/2019 7:49 AM CDT 5 Units Ri ght Upper Arm metoclopramide (REGLAN) injection 5 mg 5 mg, intravenous, Administer over 1 Minutes, 3 times daily, First dose on Wed02/14/19 at 1000 Given 02/15/2019 9 :43 PM CDT 5 mg Given 02/15/2019 3:30 PM CDT 5 mg Given 02/15/2019 9:00 AM CDT 5 mg ondansetron (ZOFRAN) injection 4 mg 4 mg, intravenous, Administer over 2 Minutes, Every 6 hours PRN, nausea, vomiting, if not tolerating PO, Starting on Wed02/14/19 at 0851, Indications: Nausea and VomitingIndications:Nausea and Vomiting Given 02/15/2019 9:25 AM CDT 4 mg ondansetron ODT (ZOFRAN-ODT) disintegrating tablet 4 mg 4 mg, oral, Every 6 hours PRN, nausea, vomiting, Starting on Wed02/14/19 at 0851, Indications: Nausea and VomitingIndications:Nausea and Vomiting pantoprazole DR (PROTONIX) extended release tablet 40 mg 40 mg, oral, 2 times daily, First dose on Wed02/15/19 at 1000, Do not crush, chew, cut, dissolve, open or otherwise manipulate tablet/capsule., Indications: ulcerative esophagitisIndications:ulcerative esophagitis Given 02/16/2019 8:5 6 AM CDT 40 mg sodium chloride 0.9% flush 0.5-20 mL 0.5-20 mL, intra-catheter, Every 8 hours scheduled, First dose on Wed02/15/19 at 0800, Flush volume based on line type and size. Given 02/16/2019 6:23 AM CDT 10 mL Given 02/15/2019 9:37 PM CDT 10 mL sodium chloride 0.9% flush 0.5-20 mL 0.5-20 mL, intra-catheter, As needed, line care, Starting on Wed02/15/19 at 0726, Flush volume based on line type and size. Flush before and after each use. sodium chloride 0.9% infusion 75 mL/hr, intravenous, Continuous, Starting on Wed02/14/19 at 1915 New Bag 02/16/2019 11:20 AM CDT 75 mL/hr 75 mL/hr Rate/Dose Verify 02/16/2019 11:15 AM CDT 75 mL/hr 75 mL/ hr Rate/Dose Verify 02/16/2019 7:30 AM CDT 75 mL/hr 75 mL/h r documented in this encounter Discontinued Medications Medication Sig Discontinue Reason Start Date End Da te doxycycline (VIBRAMYCIN) 100 mg capsule Take 1 tablet/capsule (100 mg total) by mouth 2 (two) times a day Therapy completed 11/10/2018 02/14/2019 ibuprofen (ADVIL,MOTRIN) 600 mg tablet Take 1 tablet (600 mg total) by mouth every 6 (six) hours as needed for pain (pain) Therapy completed 11/10/2018 02/14/2019 methylergonovine (METHERGINE) 0.2 mg tablet Take 1 tablet (0.2 mg total) by mouth 3 (three) times a day Therapy completed 11/10/2018 02/14/2019 glucagon 1 mg kitIndications:Hypogly cemia Inject 1 mL (1 mg total) into the muscle as instructed every 30 (thirty) minutes as needed (blood glucose less than 70 mg/dL AND no IV access AND unable to take PO glucose/jiuce.) 10/07/2018 02/14/2019 documented as of this encounter Active and Recently Administered Medications Times are shown in CDT. Scheduled Medication Order 02/14/2019 02/15/2019 02/16/2019 enoxaparin (LOVENOX) syringe 40 mg 40 mg, subcutaneous, Daily (for enoxaparin), First dose on Wed02/14/19 at 2100, Indications: Deep Vein Thrombosis Prevention 2126 (Not Given - Provider: Pascual Perry RN - Reason: Patient/family refused) 07 (JUL Hold - Provider: Automatic Transfer Provider - Reason: Patient not available)916 (JUL Unhold - Provider: Automatic Transfer Provider)2136 (Not Given - Provider: Pascual Perry RN - Reason: Patient/family refused) insulin glargine (LANTUS,BASAGLAR) pen injection 5 Units 5 Units, subcutaneous, Nightly, First dose on Wed02/14/19 at 1915, Do not mix with other insulins, Indications: Diabetes Mellitus 1940 (Given - Provider: Pascual Perry RN) 07 (JUL Hold - Provider: Automatic Transfer Provider - Reason: Patient not available)916 (MAR Unhold - Provider: Automatic Transfer Provider)2141 (Given - Provider: Pascual Perry RN) insulin glargine (LANTUS,BASAGLAR) pen injection 5 Units (COMPLETED) 5 Units, subcutaneous, Once, On Wed02/15/19 at 1545, For 1 dose, Do not mix with other insulins 1531 (Given - Provider: Eevrt Martinez RN) insulin lispro (HumaLOG) pen injection 1-3 Units 1-3 Units, subcutaneous, Nightly, First dose on Wed02/14/19 at 2100, Blood Sugar Mid Dose PM - PO patients 175 or less No insulin 176 - 200 1 unit 201 - 250 2 units 251 - 299 3 units Greater than 299 Call MD for hyperglycemia management instructions Do NOT hold for NPO status., Indications: Diabetes Mellitus 2122 (Given - Provider: Pascual Perry RN) 07 (JUL Hold - Provider: Automatic Transfer Provider - Reason: Patient not available)916 (JUL Unhold - Provider: Automatic Transfer Provider)2136 (Not Given - Provider: Pascual Perry RN - Reason: Order parameters not met) insulin lispro (HumaLOG) pen injection 1-5 Units 1-5 Units, subcutaneous, 3 times daily with meals, First dose on Wed02/14/19 at 1915, Blood Sugar Mid Dose meal time - PO patients 139 or less No insulin 140 - 175 1 unit 176 - 200 2 unit 201 - 250 3 units 251 - 299 5 units Greater than 299 Call MD for hyperglycemia management instructions Do NOT hold for NPO status., Indications: Diabetes Mellitus 1914 (Due) 07 (JUL Hold - Provider: Automatic Transfer Provider - Reason: Patient not available)0800 (Given - Provider: Evert Martinez RN)0917 (JUL Unhold - Provider: Automatic Transfer Provider)1144 (Given - Provider: Evert Martinez RN)1718 (Not Given - Provider: Evert Martinez RN - Reason: Order parameters not met) 0748 (Given - Provider: Mann Cantu RN)1125 (Given - Provider: Mann Cantu RN) insulin lispro (HumaLOG) pen injection 2 Units (CANCELED) 2 Units, subcutaneous, 3 times daily with meals, First dose on Wed02/14/19 at 1915, If BG 100 mg/dl or more, give [...] in patient's insulin dose., Indications: Diabetes Mellitus 1914 (Due) 07 (JUL Hold - Provider: Automatic Transfer Provider - Reason: Patient not available)0800 (Given - Provider: Evert Martinez RN)0917 (JUL Unhold - Provider: Automatic Transfer Provider)1143 (Given - Provider: Evert Martinez RN) insulin lispro (HumaLOG) pen injection 5 Units 5 Units, subcutaneous, 3 times daily with meals, First dose (after last modification) on Wed02/15/19 at 1800, If BG 100 mg/dl or more, give [...] in patient's insulin dose., Indications: Diabetes Mellitus 1718 (Not Given - Provider: Evert Martinez RN - Reason: Order parameters not met) 0749 (Given - Provider: Mann Cantu, MARY)1125 (Given - Provider: Mann Cantu, MARY) metoclopramide (REGLAN) injection 5 mg 5 mg, intravenous, Administer over 1 Minutes, 3 times daily, First dose on Wed02/14/19 at 1000 1029 (Given - Provider: Ida Hair, MARY)1622 (Given - Provider: Ida Hair, RN)2129 (Given - Provider: Pascual Perry RN) 0721 (MAR Hold - Provider: Automatic Transfer Provider - Reason: Patient not available)0900 (Given - Provider: Evert Martinez RN)0917 (MAR Unhold - Provider: Automatic Transfer Provider)1530 (Given - Provider: Evert Martinez RN)2143 (Given - Provider: Pascual Perry RN) 0851 (Not Given - Provider: Mann Cantu RN - Reason: Patient/family refused) ondansetron ODT (ZOFRAN-ODT) disintegrating tablet 8 mg (COMPLETED) 8 mg, oral, Once, On Wed02/14/19 at 0315, For 1 dose 0341 (Given - Provider: Concepcion Emerson, MARY) pantoprazole DR (PROTONIX) extended release tablet 40 mg 40 mg, oral, 2 times daily, First dose on Wed02/15/19 at 1000, Do not crush, chew, cut, dissolve, open or otherwise manipulate tablet/capsule., Indications: ulcerative esophagitis 1147 (Not Given - Provider: Pascual Perry RN - Reason: Patient/family refused - Comment: pt vomitting, pt refused, saying she is little nauseated, pulled the medication)214 (Not Given - Provider: Pascual Perry RN - Reason: Patient/family refused) 0856 (Given - Provider: Mann Cantu RN) sodium chloride 0.9% bolus 1,000 mL (COMPLETED) 1,000 mL, intravenous, at 1,000 mL/hr, Administer over 1 Hours, Once, On Wed02/14/19 at 0158, For 1 dose 0516 (New Bag - Provider: Concepcion Emerson, RN)0616 (Due: Stopped - Provider: Concepcion Emerson RN) sodium chloride 0.9% flush 0.5-20 mL 0.5-20 mL, intra-catheter, Every 8 hours scheduled, First dose on Wed02/15/19 at 0800, Flush volume based on line type and size. 0918 (Not Given - Provider: Evert Martinez RN - Reason: IV Infusing)1444 (Not Given - Provider: Evert Martinez RN - Reason: IV Infusing)2137 (Given - Provider: Pascual Perry RN) 0623 (Given - Provider: Pascual Perry RN)1336 (Not Given - Provider: Lior Melendez RN - Reason: IV Infusing) Continuous Medication Order 02/14/2019 02/15/2019 02/16/2019 dextrose 5% and sodium chloride 0.45% infusion (premix) (CANCELED) 100 mL/hr, intravenous, Continuous, Starting on Wed02/14/19 at 1000 0940 (New Bag - Provider: Ida Hair, MARY)1853 (Stopped - Provider: Ida Hair, MARY) insulin regular (HumuLIN R, NovoLIN R) 100 Units in sodium chloride 0.9% 100 mL (1 Units/mL) infusion (CANCELED) 6 Units/hr (6 mL/hr), 1 units/mL, intravenous, Titrated, Starting on Wed02/14/19 at 0400, Until Wed02/14/19 at 1830, Indications: Hyperglycemia, Desired Range (mg/dL): 130-180 general patients, Multiplier: 0.01, Adjust rate per GlucoStabilizer program for dka order When new IV tubing is used, completely prime the tubing. Once primed, waste an additional 20 ml of insulin infusion using the IV pump prior to connecting to patient., STAT 0509 (New Bag - Provider: Concepcion Emerson, MARY - Comment: ayan glucostab)0607 (Rate/Dose Change - Provider: Cori Travis, MARY)0723 (Rate/Dose Change - Provider: Diana Patel, MARY)0844 (Rate/Dose Change - Provider: Ida Hair RN)0939 (Rate/Dose Change - Provider: Ida Hair RN)1039 (Rate/Dose Change - Provider: Ida Hair RN)1141 (Rate/Dose Change - Provider: Ida Hair RN)1247 (Rate/Dose Change - Provider: Ida Hair RN)1423 (Rate/Dose Change - Provider: Ida Hair RN)1503 (Rate/Dose Change - Provider: Ida Hair RN)1620 (Rate/Dose Change - Provider: Ida Hair RN)1705 (Rate/Dose Change - Provider: Ida Hair RN)1810 (Rate/Dose Change - Provider: Ida Hair RN)1853 (Stopped - Provider: Ida Hair RN) sodium chloride 0.9% infusion (CANCELED) 30 mL/hr, intravenous, Continuous, Starting on Wed02/15/19 at 0800, Pre-Procedure (GI) 0726 (New Bag - Provider: Yolette Fuller RN)0921 (Stopped - Provider: Evert Martinez, MARY) sodium chloride 0.9% infusion 75 mL/hr, intravenous, Continuous, Starting on Wed02/14/19 at 1915 1853 (New Bag - Provider: Ida Hair RN) 0731 (Rate/Dose Verify - Provider: Derek Arevalo MD)0752 (Stopped - Provider: Derek Arevalo MD)0815 (Stopped - Provider: Mariaelena Cm, MARY)0921 (Restarted - Provider: Evert Martinez, MARY)0925 (New Bag - Provider: Evert Martinez, MARY)2136 (New Bag - Provider: Pascual ePrry RN) 0730 (Rate/Dose Verify - Provider: Mann Cantu, RN)1115 (Rate/Dose Verify - Provider: Mann Cantu, RN)1120 (New Bag - Provider: Mann Cantu RN) sodium chloride 0.9% with potassium chloride 20 mEq/L infusion (premix) (CANCELED) 200 mL/hr, intravenous, Continuous, Starting on Wed02/14/19 at 0531 0652 (New Bag - Provider: Diana Patel RN) PRN Medication Order 02/14/2019 02/15/2019 02/16/2019 dextrose (D10W) 10% bolus 250 mL(Linked Group 1) 250 mL, intravenous, at 1,000 mL/hr, Administer over 15 Minutes, Every 15 min PRN, blood glucose less than 70 mg/dL and UNABLE to swallow/take PO glucose/juice., Starting on Wed02/14/19 at 1822, After treatment for hypoglycemia, recheck BG followed by treatment every 15 minutes until the BG is greater than 100 mg/dL. Then check BG 1 hour post treatment. If BG is less than 100 mg/dL, repeat Q15 minute BG checks and treatment. Call MD for each episode of hypoglycemia., Indications: hypoglycemic disorder 07 ([facility] Hold - Provider: Automatic Transfer Provider - Reason: Patient not available)09 ([facility] Unhold - Provider: Automatic Transfer Provider) dextrose gel in packet 15 g(Linked Group 1) 15 g, oral, Every 15 min PRN, low blood sugar, blood glucose less than 70 mg/dL, Starting on Wed02/14/19 at 1822, If patient is alert and able to [...] each episode of hypoglycemia., Indications: hypoglycemic disorder 0721 ([facility] Hold - Provider: Automatic Transfer Provider - Reason: Patient not available)0917 ([facility] Unhold - Provider: Automatic Transfer Provider) glucagon injection 1 mg 1 mg, intramuscular, Administer over 1 Minutes, Every 30 min PRN, low blood sugar, blood glucose less than 70 mg/dL AND no IV access AND unable to take PO glucose/jiuce., Starting on Wed02/14/19 at 1822, After Glucagon is administered, position patient on [...] for each episode of hypoglycemia., Indications: Hypoglycemia 0721 ([facility] Hold - Provider: Automatic Transfer Provider - Reason: Patient not available)0917 ([facility] Unhold - Provider: Automatic Transfer Provider) ondansetron (ZOFRAN) injection 4 mg(Linked Group 2) 4 mg, intravenous, Administer over 2 Minutes, Every 6 hours PRN, nausea, vomiting, if not tolerating PO, Starting on Wed02/14/19 at 0851, Indications: Nausea and Vomiting 0721 ([facility] Hold - Provider: Automatic Transfer Provider - Reason: Patient not available)0917 ([facility] Unhold - Provider: Automatic Transfer Provider)0925 (Given - Provider: Evert Martinez, RN) ondansetron ODT (ZOFRAN-ODT) disintegrating tablet 4 mg(Linked Group 2) 4 mg, oral, Every 6 hours PRN, nausea, vomiting, Starting on Wed02/14/19 at 0851, Indications: Nausea and Vomiting 0721 ([facility] Hold - Provider: Automatic Transfer Provider - Reason: Patient not available)0917 ([facility] Unhold - Provider: Automatic Transfer Provider)0925 (See Alternative - Provider: Evert Martinez, RN) sodium chloride 0.9% flush 0.5-20 mL 0.5-20 mL, intra-catheter, As needed, line care, Starting on Wed02/15/19 at 0726, Flush volume based on line type and size. Flush before and after each use. Linked Groups Order Group 1: dextrose gel in packet 15 gJump to med 15 g, oral, Every 15 min PRN, low blood sugar, blood glucose less than 70 mg/dL, Starting on Wed02/14/19 at 1822, If patient is alert and able to [...] UNABLE to swallow/take PO glucose/juice., Starting on Wed02/14/19 at 1822, After treatment for hypoglycemia, recheck BG followed [...] 6 hours PRN, nausea, vomiting, Starting on Wed02/14/19 at 0851, Indications: Nausea and Vomiting Or ondansetron (ZOFRAN) injection 4 mgJump to med 4 mg, intravenous, Administer over 2 Minutes, Every 6 hours PRN, nausea, vomiting, if not tolerating PO, Starting on Wed02/14/19 at 0851, Indications: Nausea and Vomiting documented in this encounter Orders Medications Ordered That Evan ht Not Have Been Administered Count Last Ordered Date First Ordered Date insulin glargine (LANTUS,BAS AGLAR) pen injection 5 Units 2 02/15/2019 02/14/2019 insulin lispro (HumaLOG) pen injection 5 Units 1 02/15/[address] (PROTONIX) e xtended release tablet 40 mg 1 02/15/2019 sodium chloride 0.9% flush 0.5-20 mL 2 01/31 sodium chloride 0.9% infusion 3 02/15/2019 02/14/2019 dextrose (D10W) 10% bolus 1-500 mL 1 2018 dextrose (D10W) 10% bolus 250 mL 1 02/15/20 19 dextrose 5% and sodium chlor leydi 0.45% infusion (premix) 1 02/14/2019 dextrose 5% infusion 2 02/14/2019 dextrose gel in packet 15 g 1 02/14/2019 enoxaparin (LOVENOX) syringe 40 mg 1 2018 glucagon injection 1 mg 3 02/14/2019 insulin lispro (HumaLOG) pen injection 1-3 Units 1 02/14/2019 insulin lispro (HumaLOG) pen injection 1-5 Units 1 02/14/2019 insulin lispro (HumaLOG) pen injection 2 Units 1 02/14/2019 insulin regular (HumuLIN R, NovoLIN R) 100 Units in sodium chloride 0.9% 100 mL (1 Units/mL) infusion 1 02/14/2019 insulin regular bolus from bag 1-10 Units 1 02/14/2019 metoclopramide (REGLAN) injection 5 mg 1 ondansetron (ZOFRAN) injection 4 mg 1 02/14 ondansetron ODT (ZOFRAN-ODT) disintegrating tablet 4 mg 1 02/14/2019 ondansetron ODT (ZOFRAN-ODT) disintegrating tablet 8 mg 1 02/14/2019 potassium chloride 40 mEq in sodium chloride 0.9% 500 mL IVPB 2 02/14/2019 sodium chloride 0.45% infusion 2 02/14/2019 sodium chloride 0.9% 1,000 m L with potassium chloride 20 mEq infusion 2 02/14/2019 sodium chloride 0.9% bolus 1,000 mL 1 02/14 sodium chloride 0.9% with po tassium chloride 20 mEq/L infusion (premix) 1 02/14/2019 Lab Orders Without Results Count Last Ordered D ate First Ordered Date POCT GLUCOSE DEVICE 8 02/16/2019 02/15/20 19 Diet Count Last Ordered Date First Orde red Date ADULT DISCHARGE DIET 1 02/16/2019 Nursing Count Last Ordered Date First Orde red Date DISCHARGE ACTIVITY 2 02/16/2019 DISCHARGE CALL PROVIDER 4 02/16/2019 DISCHARGE INSTRUCTIONS 2 02/16/2019 FOLLOW UP WITH PROVIDER 2 02/16/2019 VERIFY INFORMED CONSENT 1 02/15/2019 Transfer Count Last Ordered Date First Orde red Date TRANSFER PATIENT 1 02/16/2019 Case Request Count Last Ordered Date First Orde red Date CASE REQUEST GI 1 02/14/2019 ADT Patient Update Count Last Ordered Date Firs t Ordered Date ED IP DECISION TO ADMIT 1 02/14/2019 documented in this encounter Care Teams Expediter Relationship Specialty Start Date End Date Carrie Joseph PA [address] [place] [address] PCP - General 10/04/18 07/19/21 documented as of this encounter
--- OUTSIDE RECORDS SUMMARY | 2024-05-10 18:40 | XMS_ITS | Encounter Summary ---
Author Organization [facility] Healthcare Address [address] [place] [address] Care Team Providers Care Community Living Coach Name Role Phone Carrie Joseph Primary Care Provider + Warren Phillips MD Unavailable [phone] Reason for Visit * Reason Comments Vomiting Encounter Details Date Type Department Care Team (Latest Contact Info) Description 02/14/2019 3:04 AM CDT - 02/16/2019 3:02 PM CDT Hospital Encounter [facility] [address] [place] [address] Miryam Medley MD [address] [place] [address] [place] [address] Gio Sewell MD [address] [place] [address] Sanjuanita Enamorado MD [address] [place] [address] [place] [address] Josette Sloan MD [address] [place] [address] [place] [address] Diabetic ketoacidosis without coma associated with type 1 diabetes mellitus (CMS/HCC) (Primary Dx); Non-intractable vomiting with nausea, unspecified vomiting type; Esophagitis Discharge Disposition: Discharge to home or self [...] on file Legal Sex Female 3:13 AM [place] Gender Identity Not on file Sexual Orientation Not on file documented as of this encounter Last Filed Vital Signs Vital Sign Reading Time Taken Comments Blood Pressure 124/80 02/16/2019 11:15 AM CDT Pulse 98 02/16/2019 11:15 AM CDT Temperature 36.6 ??C (97.8 ??F) 02/16/2019 1 1:15 AM CDT Respiratory Rate 20 02/16/2019 11:1 5 AM CDT Oxygen Saturation 99% 02/16/2019 7:30 AM CDT Inhaled Oxygen Concentration - - Weight 64.7 kg (142 lb 10.2 oz) 02/16/2019 6:00 AM CDT Height 154.9 cm (5' 1 ) 02/14/2019 8:25 AM CDT Body Mass Index 26.95 02/14/2019 8:25 AM CDT documented in this encounter Discharge Diagnoses Diagnosis 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 (HCC) - TYPE 1 DIABETES MELLITUS WITH DIABETIC AUTONOMIC (POLY)NEUROPATHY Ulcer of esophagus without bleeding - ULCER OF ESOPHAGUS WITHOUT BLEEDING Type 1 diabetes mellitus with ketoacidosis without coma (HCC) - TYPE 1 DIABETES MELLITUS WITH KETOACIDOSIS WITHOUT COMA 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) - TYPE 1 DIABETES MELLITUS WITH DIABETIC CHRONIC KIDNEY DISEASE Gastro-esophageal reflux disease with esophagitis - GASTRO-ESOPHAGEAL REFLUX DISEASE WITH ESOPHAGITIS Reflux esophagitis Gastric ulcer, unspecified as acute or chronic, without hemorrhage or perforation - GASTRIC ULCER, UNSPECIFIED ACUTE OR CHRONIC, WITHOUT HEMORRHAGE OR PERFORATION Gastroparesis - GASTROPARESIS Fatty (change of) liver, not elsewhere classified - FATTY (CHANGE OF) LIVER, NOT ELSEWHERE CLASSIFIED Tachycardia, unspecified - TACHYCARDIA, UNSPECIFIED Major depressive disorder, single episode, unspecified - MAJOR DEPRESSIVE DISORDER, SINGLE EPISODE, UNSPECIFIED assisted (current) use of insulin (HCC) - PRISON (CURRENT) USE OF INSULIN Personal history of urinary (tract) infections - PERSONAL HISTORY OF URINARY (TRACT) INFECTIONS documented in this encounter Discharge Summaries * Josette Sloan MD - 02/16/2019 1:47 PM CDT [place], [place] Hospitalist Discharge Summary Patient Name: Karina Menjivar Patient : 1995 Room/Bed: [id number] Admission Date/Time: 02/14/2019 3:04 AM Discharge date: [...] Your Medications These medications were sent to [facility] [address] [place] [id number] ?? metoclopramide 5 mg tablet ?? pantoprazole [...] Specialty: Gastroenterology, Internal Medicine Relationship: Consulting Physician [address] [place] [address] [address] TYSON [address] [place] [id number] Next Steps: Follow up Instructions: in 1 [...] Josette Sloan MD Internal Medicine - Hospitalist [facility] - Adult Hospitalist Service 02/16/2019 1:47 PM Cc: KEANU Conway documented in this encounter Discharge Instructions * Discharge Instr - Other Orders* Yoli Scott RN - 02/16/2019 2:09 PM CDT If you have any questions or concerns following discharge, please call [facility] at [phone]. * Attachments The following attachments cannot be sent through Care Everywhere. * Metoclopramide (By mouth) ([place] Sudanese) * Pantoprazole (By mouth) ([place]) documented in this encounter Medications at Time [...] Sloan MD - 02/16/2019 8:00 AM CDT [facility] Hospitalist Service Progress Note Patient Name: Karina Menjivar Patient : 1995 Age/Sex: 23 y.o. female Room/Bed: [place] [id number]/[id number] Admission Date/Time: 02/14/2019 3:04 AM Date: 02/16/2019 [...] Lying Pulse: 120 96 105 89 Resp: 16 20 20 20 Temp: 36.7 ??C (98 ??F) 37.7 ??C (99.8 ??F) TempSrc: Temporal Temporal SpO2: 100% 100% 98% 99% Weight: 64.7 kg (142 lb 10.2 oz) Height: I/O last 2 completed shifts: In: 2245 [P.O.:250; I.V.:1994] Out: 3020 [Urine:2950; Emesis/NG output:70] I/O this [...] Josette Sloan MD Internal Medicine - Hospitalist [facility] - Adult Hospitalist Service 02/16/2019 8:01 AM [...] tongue midline, mucosa moist Lungs CTA Heart: [id number], tachycardic, no murmur or gallop Abd: +BS, [...] syringe 40 mg 40 mg subcutaneous Daily-2099 Warren Phillips MD ??? glucagon injection 1 [...] Continuous Warren Phillips MD 75 mL/hr at 02/15/19 0925 75 mL/hr at 02/15/19 0925 A/P: 1. Severe ulcerative esophagitis, status post [...] Enamorado MD 02/15/2019 3:15 PM * Neida Pabon RN - 02/15/2019 2:34 PM CDT Per [...] Total Score (range 6-24) 24 * Yolette Whyte RN - 02/15/2019 2:02 PM CDT Karina Dawson Jef [id number] Gio Sewell MD Diabetes Management Education Provided: Please see the Patient Education Activity Nausea continues today. Upper GI endoscopy completed. Awaiting pathology results. Encouraged to follow up with dr. Sanches and move forward with insulin pump therapy. Yolette Whyte RN, Life Scientist 02/15/2019 2:02 PM * Lucinda Woodward, DIANDRA - 02/15/2019 12:12 PM CDT Nutrition Assessment Reason for Assessment: Screened at Nutrition Risk and Initial Nutrition Assessment Encounter Date: 02/15/19 12:13 PM Nutrition Assessment and Plan: Patient is a 23 y.o. female. Admit Dx: DIABETIC KETOACIDOSIS WITHOUT COMA ASSOCIATED WITH TYPE 1 DIABETES MELLITUS (CMS/[facility]). Admitted on 02/14/2019, current LOS is 1 [...] 0.09)* * Growth percentiles are based on CDC (Girls, 2-20 Years) data. Nutrition Diagnosis 1: Inadequate energy intake Related to: Nausea, Vomiting Evidenced by: PO under50%, Physical finding ?? Interventions: Morley diet preferences within the limits of nutrition [...] Follow-Up : 02/20/[address],LDN * Card, Aida Gilbert NP - 02/14/2019 9:32 AM CDT GI [...] at. But we started the Reglan y she tolerated the medicine. She was not [...] BP 02/13/19 2352 (!) 146/102 SpO2 02/13/19 235 97 % Temp src 02/13/19 2352 Temporal [...] tongue midline, mucosa moist Lungs CTA Heart: [id number], no murmur or gallop, no friction rub [...] coma associated with type 1 diabetes mellitus ([facility]) Diabetic gastroparesis ([facility]) Sanjuanita Enamorado MD Date of Service: 02/14/2019 documented in this encounter Procedure Notes * Warren Phillips MD - 02/15/2019 7:30 AM CDTAssociated Order(s): EGD [facility] Patient Name: Karina Menjivar Procedure Date: 02/15/2019 7:30 AM Date of : 1995 Admit Type: Inpatient Age: 23 Gender: Female Attending MD: Warren Phillips M.D. Room: [facility] ENDOSCOPY ROOM 1 Note Status: Finalized Patient [...] passed under direct vision. The Endoscope GIF-H190 [id number] was introduced through the mouth, and advanced [...] 7:30 AM Procedure Code(s): --- Professional --- 98422, Esophagogastroduodenoscopy, flexible, transoral; with biopsy, single or multiple Diagnosis Code(s): --- Professional --- K21.0, Gastro-esophageal reflux disease with esophagitis R11.2, Nausea with vomiting, unspecified CPT copyright 2017 [employer]. All rights reserved. The codes documented in this report are preliminary and upon vehicle body sander review may be revised to meet current compliance requirements. Recognized by the [employer] for promoting quality [...] night. Pt left AMA yesterday evening from [facility] after being diagnosed w/ DKA and gastroparesis. [...] Per chart review, pt was admitted to [facility] from 02/10-02/13/19 and diagnosed by GI w/ Nausea vomiting secondary to gastroparesis exacerbated and flared up secondary to the diabetes ketoacidosis . Pt left from this encounter AMA. Patient History Patient Active Problem List Diagnosis Date Noted ??? Diabetic ketoacidosis without coma associated with type 1 diabetes mellitus (CMS/HCC) 02/13/2019 ??? Lactic acidosis 02/11/2019 ??? Depression 02/11/2019 ??? Hematemesis 02/11/2019 ??? Non-intractable vomiting 02/10/2019 ??? Hypokalemia 11/08/2018 ??? Hyperemesis gravidarum with metabolic disturbance 11/08/2018 ??? Less than 8 weeks gestation of ??? Sepsis due to gram-negative UTI (CMS/HCC) 05/27/2018 ??? Type 1 diabetes mellitus with ketoacidosis without coma (CMS/HCC) ??? Nausea and vomiting 01/02/2018 ??? Dehydration 01/02/2018 ??? Metabolic alkalosis 01/02/2018 ??? Uncontrolled type 1 diabetes mellitus with hyperglycemia ([facility]) 01/02/2018 ??? Ketonuria 01/02/2018 ??? Thrombocytosis (CMS/HCC) 01/02/2018 ??? Gastroenteritis ??? Sinus tachycardia ??? Normocytic anemia Past Medical History: Diagnosis Date ??? Depression ??? Diabetes mellitus (CMS/HCC) ??? HX OTHER MEDICAL 2011 Diabetes mellitus, type 1 ??? Miscarriage Past Surgical History: Procedure Laterality Date ??? ABDOMINAL SURGERY ??? SECTION, CLASSIC 2016 ??? TONSILLECTOMY Bilateral 2003 Family History Problem Relation Age of Onset [...] independently and normally. Psychiatric: Behavior: Behavior normal. [facility] Vitals: 02/14/19 0425 02/14/19 0430 02/14/19 0515 02/14/19 0600 BP: 130/86 124/86 (!) 175/100 (!) 157/106 Pulse: 88 91 108 102 Resp: 15 15 16 23 Temp: TempSrc: SpO2: 100% 100% 100% 100% [...] tendency for uric acid stone formation. Source: [place] Pycno.Last revised 05-13-2017 POCT GLUCOSE DEVICE - Abnormal [...] Medley MD Authorized by: Miryam Medley MD Clyo Protocol: RN Notified of Procedure: yes Informed [...] and matched to patient identification: n/a Responsible green party for transporting specimen(s) to lab determined: n/a Comments: Procedure comments: Initially attempted to place peripheral IJ. After 1 unsuccesful attempt w/ US-guidance and not obtaining flash w/ peripheral line I went on to perform central line w/ maximal sterile technique employed. Diabetic ketoacidosis without coma associated with type 1 diabetes mellitus (CMS/HCC) This note was prepared by Pato Machado, [...] Miryam Medley MD 02/14/19 0632 * Angel Jolley, RN - 02/13/2019 11:51 PM CDT Ambulate [...] Equipment and the Need for Diabetes Identification [facility]: Completed Goal: Ability to manage health-related [...] Equipment and the Need for Diabetes Identification [facility] Outcome: Not Progressing Goal: Ability [...] Equipment and the Need for Diabetes Identification [facility] Outcome: Progressing Goal: Ability to [...] Progressing * Perioperative Nursing Note - Mariaelena Cm, MARY - 02/15/2019 9:[address] Phillips was here and talked with pt about test results. * Perioperative Nursing Note - Mariaelena Cm RN - 02/15/2019 8:54 AM CDT 0854 pt had a sm emesis of lt mejia. * Perioperative Nursing Note - Mariaelena Cm RN - 02/15/2019 8:50 AM CDT 0845 pt [...] Equipment and the Need for Diabetes Identification [facility] Outcome: Progressing Goal: Ability to identify and [...] Equipment and the Need for Diabetes Identification [facility] Outcome: Progressing Goal: Ability to identify and [...] GLUCOSE DEVICE Routine 02/14/2019 3:45 AM CDT AR INSJ NON-TUNNELED CENTRAL VENOUS CATH AGE 5 [...] Glucose, POC 190(H) 71 - 98 mg/dL TOMY SAHU ([place]) Blood specimen (specimen) 02/16/2019 11:24 AM CDT 02/16/2019 11:24 AM CDT us Josette Sloan MD LAB POCT ORDERABLES - DE VICE Final Result Performing Organization Address [facility]/ZIP Co de Phone Number TOMY SAHU ([place]) [address] [place] [address] * (ABNORMAL) POCT glucose (02/16/2019 7:43 AM CDT) Glucose, POC 156(H) 71 - 98 mg/dL TOMY SAHU ([place]) Blood specimen (specimen) 02/16/2019 7:43 AM CDT 02/16/2019 7:43 AM CDT us Josette Sloan MD LAB POCT ORDERABLES - DE VICE Final Result Performing Organization Address [facility] Co de Phone Number TOMY SAHU ([place]) [address] [place] [address] * (ABNORMAL) POCT glucose (02/15/2019 9:36 PM CDT) Glucose, POC 101(H) 71 - 98 mg/dL [facility] ([place]) Blood specimen (specimen) 02/15/2019 9:36 PM CDT 02/15/2019 9:36 PM CDT us Sanjuanita Enamorado MD LAB POCT ORDERABLES - DEVICE Final Result Performing Organization Address [facility] Co de Phone Number TOMY SAHU ([place]) [address] [place] [address] * (ABNORMAL) POCT glucose (02/15/2019 5:15 PM CDT) Glucose, POC 100(H) 71 - 98 mg/dL TOMY [facility] ([place]) Blood specimen (specimen) 02/15/2019 5:15 PM CDT 02/15/2019 5:15 PM CDT us Sanjuanita Enamorado MD LAB POCT ORDERABLES - DEVICE Final Result Performing Organization Address City/[facility]/ZIP Co de Phone Number TOMY SAHU ([place]) [address] [place] [address] * (ABNORMAL) POCT glucose (02/15/2019 11:34 AM CDT) Glucose, POC 200(H) 71 - 98 mg/dL TOMY [facility] ([place]) Blood specimen (specimen) 02/15/2019 11:34 AM CDT 02/15/2019 11:34 AM CDT us Sanjuanita Enamorado MD LAB POCT ORDERABLES - DEVICE Final Result [facility] ([place]) [address] [place] [address] * Surgical pathology (02/15/2019 11:21 AM CDT) Tissue (Gastric/Stomach biopsy) 02/15/2019 7:46 AM CDT Narrative PATHOLOGY [facility] ([place]) - 02/16/2019 1:20 PM CDT EPIC results best viewed via link to PDF [facility] Department of Pathology [address] [place] [address] Final Report Patient Name: ??MENJIVARKARINA Address: ??[address] [place] [address], ??[place], [place] [address] Gender: ??F : ??1995 (Age: 23) Service: ??Medical Location: ??[facility] Hospital #: ??[id number] Patient Type: ??[facility] Accession # ?[id number] Taken: ??02/15/2019 Received: ??02/15/2019 Accessioned: ??02/15/2019 Reported: [...] is submitted in a single container labeled Karinasa Taryn Menjivar and GE junction . ??It is five castaneda tissue fragment measuring 1-2 mm. ??All in one cassette. ??Lex Hope M.D./Raymond Hernández. REPORT IMAGES AND SCANNED DOCUMENTS, IF INCLUDED, ONLY VIEWABLE IN PDF VERSION OF REPORT The performance characteristics of some immunohistochemical stains, fluorescence in-situ hybridization tests and immunophenotyping by flow cytometry cited in this report (if any) were determined by the Surgical Pathology Department at [facility] as part of an ongoing quality controller program and in compliance with federally mandated [...] characteristics determined by the Surgical Pathology Department [facility]. ??It has not been cleared or approved by the U. S. Food and Drug Administration. Warren Phillips MD LAB PATHOLOGY ORDERABLES F inal Result PATHOLOGY [facility] [address] [place] [address] * (ABNORMAL) POCT glucose (02/15/2019 9:29 AM CDT) Glucose, POC 221(H) 71 - 98 mg/dL TOMY SAHU ([place]) Blood specimen (specimen) 02/15/2019 9:29 AM CDT 02/15/2019 9:29 AM CDT Sanjuanita Enamorado MD LAB POCT ORDERABLES - DEVICE Final Result A[facility] SA[facility] ([place]) [address] [place] [address] * EGD (02/15/2019 7:30 AM CDT) Anatomical Region Laterality Modality Other Narrative Procedure Note Warren Phillips MD - 02/15/2019 7:30 AM CDT [facility] Patient Name: Karina Menjivar Procedure Date: 02/15/2019 7:30 AM Date of : 1995 Admit Type: Inpatient Age: 23 Gender: Female Attending MD: Warren Phillips M.D. Room: [facility] ENDOSCOPY ROOM 1 Note Status: Finalized Patient [...] was passed under direct vision.The Endoscope GIF-H190 [id number] was introduced throughthe mouth, and advanced to [...] 7:30 AM Procedure Code(s): --- Professional --- 91165, Esophagogastroduodenoscopy, flexible, transoral; with biopsy, single or multiple Diagnosis Code(s): --- Professional --- K21.0, Gastro-esophageal reflux disease with esophagitis R11.2, Nausea with vomiting, unspecified CPT copyright 2017 [employer]. All rights reserved. The codes documented in this report are preliminary and upon vehicle body sander reviewmay be revised to meet current compliance requirements. Recognized by the [employer] for promoting quality in endoscopy us Warren Phillips MD ENDOSCOPY PROCEDURES Final Result * (ABNORMAL) POCT glucose (02/15/2019 7:22 AM CDT) Glucose, POC 158(H) 71 - 98 mg/dL TOMY SAHU ([place]) Blood specimen (specimen) 02/15/2019 7:22 AM CDT 02/15/2019 7:22 AM CDT us Sanjuanita Enamorado MD LAB POCT ORDERABLES - DEVICE Final Result Performing Organization Address City/[facility]/ZIP Co de Phone Number TOMY LUIS ALBERTO ([place]) [address] [place] [id number] * (ABNORMAL) POCT glucose (02/15/2019 3:46 AM CDT) Glucose, POC 108(H) 71 - 98 mg/dL TOMY SAHU ([place]) Blood specimen (specimen) 02/15/2019 3:46 AM CDT 02/15/2019 3:46 AM CDT Gio Sewell MD LAB POCT ORDERABLES - DEVICE Final Result TOMY SAHU ([place]) [address] [place] [address] * (ABNORMAL) POCT glucose (02/14/2019 9:23 PM CDT) Glucose, POC 185(H) 71 - 98 mg/dL TOMY SAHU ([place]) Blood specimen (specimen) 02/14/2019 9:23 PM CDT 02/14/2019 9:23 PM CDT Gio Sewell MD LAB POCT ORDERABLES - DEVICE Final Result TOMY SAHU ([place]) [address] [place] [address] * POCT glucose (02/14/2019 6:09 PM CDT) Glucose, POC 91 71 - 98 mg/dL TOMY SAHU ([place]) Blood specimen (specimen) 02/14/2019 6:09 PM CDT 02/14/2019 6:09 PM CDT Gio Sewell MD LAB POCT ORDERABLES - DEVICE Final Result Performing Organization Address City/[facility]/ZIP Co de Phone Number TOMY SAHU ([place]) [address] [place] [address] * POCT glucose (02/14/2019 5:03 PM CDT) Glucose, POC 89 71 - 98 mg/dL TOMY SAHU ([place]) Blood specimen (specimen) 02/14/2019 5:03 PM CDT 02/14/2019 5:03 PM CDT Gio Sewell MD LAB POCT ORDERABLES - DEVICE Final Result TOMY SAHU ([place]) [address] [place] [address] * POCT glucose (02/14/2019 4:18 PM CDT) Glucose, POC 77 71 - 98 mg/dL TOMY SAHU ([place]) Blood specimen (specimen) 02/14/2019 4:18 PM CDT 02/14/2019 4:18 PM CDT us Gio Sewell MD LAB POCT ORDERABLES - DEVICE Final Result TOMY [facility] ([place]) [address] [place] [id number] * eGFR (02/14/2019 3:31 PM CDT) [facility] eGFR 154 mL/min/1.7 3 m2 TOMY SAHU ([place]) Comment: Interpretive Data Reference Interval Normal ?>/= 90 mL/min/1.73m2 Mildly decreased* ? 60 - 89 mL/min/1.73m2 Mildly to moderately decreased ?45 - 59 mL/min/1.73m2 Moderately to severely decreased ??30 - 44 mL/min/1.73m2 Severely decreased ?15 - 29 mL/min/1.73m2 Kidney Failure ?< 15 ??mL/min/1.73m2 *Relative to young adult level If -[place] multiply value by 1.16. Estimated glomerular filtration [...] Final Re sult Performing Organization Address City/[facility]/ZIP Co de Phone Number TOMY SAHU ([place]) [address] [place] [address] * (ABNORMAL) Basic metabolic panel (02/14/2019 3:31 PM CDT) Sodium 139 135 - 145 mmol/L [facility] ([place]) Potassium, pl 3.5 3.3 - 4.9 mmol/L [facility] ([place]) Chloride 104 97 - 110 mmol/L [facility] ([place]) CO2 23 22 - 32 mmol/L [facility] ([place]) Anion gap 13 2 - 15 mmol/L [facility] ([place]) BUN 8 8 - 25 mg/dL [facility] ([place]) Creatinine 0.35(L) 0.60 - 1.10 mg/dL [facility] ([place]) Glucose 88 70 - 199 mg/dL [facility] ([place]) Comment: Interpretive Data Fasting glucose >/= [...] 2017. Calcium 8.5 8.5 - 10.3 mg/dL [facility] ([place]) Blood specimen (specimen) 02/14/2019 3:31 PM CDT 02/14/2019 3:34 PM CDT Sanjuanita Enamorado MD LAB BLOOD ORDERABLES Final Re sult TOMY MAYAN) [address] [place] [address] * POCT glucose (02/14/2019 3:02 PM CDT) Glucose, POC 77 71 - 98 mg/dL TOMY SAHU ([place]) Blood specimen (specimen) 02/14/2019 3:02 PM CDT 02/14/2019 3:02 PM CDT Gio Sewell MD LAB POCT ORDERABLES - DEVICE Final Result Performing Organization Address [facility]/ZIP Co de Phone Number TOMY SAHU ([place]) [address] [place] [address] * (ABNORMAL) POCT glucose (02/14/2019 1:44 PM CDT) Glucose, POC 115(H) 71 - 98 mg/dL TOMY SAHU ([place]) Blood specimen (specimen) 02/14/2019 1:44 PM CDT 02/14/2019 1:44 PM CDT Gio Sewell MD LAB POCT ORDERABLES - DEVICE Final Result Performing Organization Address [facility] de Phone Number TOMY SAHU ([place]) [address] [place] [address] * (ABNORMAL) POCT glucose (02/14/2019 12:46 PM CDT) Glucose, POC 153(H) 71 - 98 mg/dL TOMY SAHU ([place]) Blood specimen (specimen) 02/14/2019 12:46 PM CDT 02/14/2019 12:46 PM CDT Gio Sewell MD LAB POCT ORDERABLES - DEVICE Final Result Performing Organization Address [facility] Co de Phone Number TOMY SAHU ([place]) [address] [place] [address] * US Abdomen Limited (02/14/2019 12:44 PM [...] CYST. Electronically signed by: Kevin Diaz M.D Sanjuanita Enamorado MD IMG US PROCEDURES Final Resul t * (ABNORMAL) POCT glucose (02/14/2019 11:40 AM CDT) Glucose, POC 174(H) 71 - 98 mg/dL TOMY SAHU ([place]) Blood specimen (specimen) 02/14/2019 11:40 AM CDT 02/14/2019 11:40 AM CDT Gio Sewell MD LAB POCT ORDERABLES - DEVICE Final Result TOMY SAHU ([place]) [address] [place] [id number] * (ABNORMAL) POCT glucose (02/14/2019 10:38 AM CDT) Glucose, POC 185(H) 71 - 98 mg/dL TOMY SAHU ([place]) Blood specimen (specimen) 02/14/2019 10:38 AM CDT 02/14/2019 10:38 AM CDT Gio Sewell MD LAB POCT ORDERABLES - DEVICE Final Result Performing Organization Address City/[facility]/ZIP Co de Phone Number TOMY SHAU ([place]) [address] [place] [address] * POCT glucose (02/14/2019 9:38 AM CDT) Glucose, POC 84 71 - 98 mg/dL TOMY SAHU ([place]) Blood specimen (specimen) 02/14/2019 9:38 AM CDT 02/14/2019 9:38 AM CDT us Gio Sewell MD LAB POCT ORDERABLES - DEVICE Final Result Performing Organization Address City/[facility] Co de Phone Number TOMY SAHU ([place]) [address] [place] [address] * POCT glucose (02/14/2019 8:37 AM CDT) Glucose, POC 93 71 - 98 mg/dL TOMY SAHU ([place]) Blood specimen (specimen) 02/14/2019 8:37 AM CDT 02/14/2019 8:37 AM CDT Gio Sewell MD LAB POCT ORDERABLES - DEVICE Final Result Performing Organization Address [facility]/ZIP Co de Phone Number TOMY SAHU ([place]) [address] [place] [address] * eGFR (02/14/2019 8:12 AM CDT) eGFR 147 mL/min/1.7 3 m2 [facility] ([place]) Comment: Interpretive Data Reference Interval Normal ?>/= 90 mL/min/1.73m2 Mildly decreased* ? 60 - 89 mL/min/1.73m2 Mildly to moderately decreased ?45 - 59 mL/min/1.73m2 Moderately to severely decreased ??30 - 44 mL/min/1.73m2 Severely decreased ?15 - 29 mL/min/1.73m2 Kidney Failure ?< 15 ??mL/min/1.73m2 *Relative to young adult level If -[place] multiply value by 1.16. Estimated glomerular filtration [...] 8:12 AM CDT 02/14/2019 8:19 AM CDT Sanjuanita Enamorado MD LAB BLOOD ORDERABLES Final Re sult [facility] ([place]) [address] [place] [address] * (ABNORMAL) Basic metabolic panel (02/14/2019 8:12 AM CDT) Sodium 141 135 - 145 mmol/L [facility] ([place]) Potassium, pl 3.8 3.3 - 4.9 mmol/L [facility] ([place]) Chloride 105 97 - 110 mmol/L [facility] ([place]) CO2 21(L) 22 - 32 mmol/L [facility] ([place]) Anion gap 15 2 - 15 mmol/L [facility] ([place]) BUN 8 8 - 25 mg/dL [facility] ([place]) Creatinine 0.41(L) 0.60 - 1.10 mg/dL [facility] ([place]) Glucose 120 70 - 199 mg/dL [facility] ([place]) Comment: Interpretive Data Fasting glucose >/= [...] 2017. Calcium 8.6 8.5 - 10.3 mg/dL [facility] ([place]) Blood specimen (specimen) 02/14/2019 8:12 AM CDT 02/14/2019 8:19 AM CDT us Sanjuanita Enamorado MD LAB BLOOD ORDERABLES Final Re sult [facility] ([place]) [address] [place] [address] * (ABNORMAL) POCT glucose (02/14/2019 7:19 AM CDT) [facility] Signature Glucose, POC 162(H) 71 - 98 mg/dL [facility] ([place]) Blood specimen (specimen) 02/14/2019 7:19 AM CDT 02/14/2019 7:19 AM CDT us Kitty Rodrigues MD LAB POCT ORDERABLES - DEVICE Final Result Performing Organization Address City/[facility]/ZIP Co de Phone Number [facility] ([place]) [address] [place] [address] * (ABNORMAL) POCT glucose (02/14/2019 6:06 AM CDT) Glucose, POC 208(H) 71 - 98 mg/dL [facility] ([place]) Comment:Glu2: INSULIN GTT Blood specimen (specimen) 02/14/2019 6:06 AM CDT 02/14/2019 6:06 AM CDT us Kitty Rodrigues MD LAB POCT ORDERABLES - DEVICE Final Result [facility] ([place]) [address] [place] [address] * (ABNORMAL) Urinalysis reflex to microscopic (02/14/2019 4:57 AM CDT) Color, ur Yellow Yellow [facility] ([place]) Clarity, ur Clear Clear [facility] ([place]) Specific gravity, ur >1.030(H) 1.010 - [...] esterase, ur Negative Negative [facility] ([place]) Urine 02/14/2019 4:57 AM CDT 02/14/2019 5:00 AM CDT Narrative [facility] ([place]) - 02/14/2019 5:07 AM CDT ?? Urine pH is affected by diet, medications, systemic acid-base disturbances, and renal tubular function. ??pH may affect urinary stone formation. ??For example, urine pH below 6.0 may help reduce the tendency for calcium phosphate stones and pH greater than 6.0 may reduce the tendency for uric acid stone formation. Source: [employer]. Last revised 1-11-2018 us Miryam Medley MD LAB URINE ORDERABLES Fin al Result [facility] ([place]) [address] [place] [address] * (ABNORMAL) POCT glucose (02/14/2019 4:54 AM CDT) Glucose, POC 257(H) 71 - 98 mg/dL [facility] ([place]) Blood specimen (specimen) 02/14/2019 4:54 AM CDT 02/14/2019 4:54 AM CDT us Kitty Rodrigues MD LAB POCT ORDERABLES - DEVICE Final Result Performing Organization Address City/[facility] Co de Phone Number [facility] ([place]) [address] [place] [address] * XR Chest 1 Vw Portable (02/14/2019 [...] 281(H) 71 - 98 mg/dL [facility] ([place]) Blood specimen (specimen) 02/14/2019 3:45 AM CDT 02/14/2019 3:45 AM CDT us Notinfile Unknown LAB POCT ORDERABLES - DEVICE F inal Result [facility] ([place]) [address] [place] [address] * AR INSJ NON-TUNNELED CENTRAL VENOUS CATH AGE 6 YR/> (02/14/2019 3:11 AM CDT) Narrative Miryam Medley MD - 02/14/2019 3:11 AM CDT Miryam Medley MD ? 02/14/2019 ??6:32 AM Central Line Date/Time: 02/14/2019 4:44 AM Performed by: Miryam Medley MD Authorized by: Miryam Medley MD Clyo Protocol: ??RN Notified of Procedure: yes ?Informed [...] and matched to patient identification: n/a ?Responsible green party for transporting specimen(s) to lab determined: n/a [...] Neutrophil abs 6.2 1.7 - 6.5 K/cumm [facility] ([place]) [...] Fin al Result [facility] ([place]) [address] [place] [address] * (ABNORMAL) CBC with auto differential (02/14/2019 [...] Fin al Result [facility] ([place]) [address] [place] [address] * eGFR (02/14/2019 12:44 AM CDT) Pathologist [facility] eGFR 153 mL/min/1.7 3 m2 [facility] ([place]) Comment: Interpretive Data Reference Interval Normal ?>/= 90 mL/min/1.73m2 Mildly decreased* ? 60 - 89 mL/min/1.73m2 Mildly to moderately decreased ?45 - 59 mL/min/1.73m2 Moderately to severely decreased ??30 - 44 mL/min/1.73m2 Severely decreased ?15 - 29 mL/min/1.73m2 Kidney Failure ?< 15 ??mL/min/1.73m2 *Relative to young adult level If -[place] multiply value by 1.16. Estimated glomerular filtration [...] BLOOD ORDERABLES Fin al Result [facility] ([place]) [address] [place] [address] * hCG, blood, quantitative (02/14/2019 12:44 AM CDT) hCG, quant <5.0 0.0 - 5.0 IUnits/L [facility] ([place]) Comment: Interpretive Data Non- Female premenopausal: < [...] MD LAB BLOOD ORDERABLES Fin al Result [facility] ([place]) [address] [place] [address] * (ABNORMAL) Comprehensive metabolic panel (02/14/2019 12:44 AM CDT) Sodium 131(L) 135 - 145 mmol/L [facility] ([place]) Potassium, pl 3.7 3.3 - 4.9 mmol/L [facility] Chloride 94(L) 97 - 110 mmol/L [facility] ([place]) CO2 16(L) 22 - 32 mmol/L [facility] Anion gap 21(H) 2 - 15 mmol/L [facility] BUN 6(L) 8 - 25 mg/dL [facility] Creatinine 0.36(L) 0.60 - 1.10 mg/dL [facility] ([place]) Glucose 296(H) 70 - 199 mg/dL [facility] ([place]) Comment: Interpretive Data Fasting glucose >/= [...] 73 40 - 130 Units/L [facility] ([place]) ALT 9 7 - 45 Units/L [facility] ([place]) AST 15 10 - 45 Units/L [facility] ([place]) Comment:Slightly Hemolyzed S pecimen Blood specimen (specimen) 02/14/2019 12:44 AM CDT 02/14/2019 12:49 AM CDT us Miryam Medley MD LAB BLOOD ORDERABLES Fin al Result Performing Organization Address City/[facility] Co de Phone Number [facility] ([place]) [address] [place] [address] * (ABNORMAL) POCT glucose (02/13/2019 11:57 PM CDT) Glucose, POC 256(H) 71 - 98 mg/dL [facility] ([place]) Blood specimen (specimen) 02/13/2019 11:57 PM CDT 02/13/2019 11:57 PM CDT us Notinfile Unknown LAB POCT ORDERABLES - DEVICE F inal Result Performing Organization Address City/[facility] Co de Phone Number [facility] ([place]) [address] [place] [address] documented in this encounter Visit Diagnoses Diagnosis Bilious vomiting with nausea- Primary Diabetic ketoacidosis without coma associated with type 1 diabetes mellitus (CMS/HCC) (HCC) Non-intractable vomiting with nausea, unspecified vomiting type Esophagitis Unspecified esophagitis Diabetic gastroparesis (CMS/HCC) (HCC) Type II or unspecified type diabetes mellitus with neurological manifestations, not stated as uncontrolled Hyperglycemia Other abnormal glucose Sinus tachycardia Other specified cardiac dysrhythmias Esophagitis Unspecified esophagitis Diabetic ketoacidosis without coma associated with type 1 diabetes mellitus (CMS/HCC) ([facility]) documented in this encounter Admitting Diagnoses Diagnosis Diabetic ketoacidosis without coma associated with type 1 diabetes mellitus (CMS/HCC) ([facility]) Non-intractable vomiting documented in this encounter [...] swallow/take PO glucose/juice., Starting on Wed02/14/19 at 182, After treatment for hypoglycemia, recheck BG followed by treatment every 15 minutes until the BG is greater than 100 mg/dL. Then check BG 1 hour post treatment. If BG is less than 100 mg/dL, repeat Q15 minute BG checks and treatment. Call MD for each episode of hypoglycemia., Indications: hypoglycemic disorderIndications:hyp oglycemic disorder dextrose 5% and sodium chloride 0.45% infusion (premix) 100 mL/hr, intravenous, Continuous, Starting on Wed02/14/19 at 1000 New Bag 02/14/2019 9:40 AM CDT 100 mL/hr 100 mL/hr dextrose [...] for each episode of hypoglycemia., Indications: hypoglycemic disorderIndications:hyp oglycemic disorder glucagon injection 1 mg 1 mg, [...] MD for each episode of hypoglycemia., Indications: HypoglycemiaIndications :Hypoglycemia insulin glargine (LANTUS,BASAGLAR) pen injection 5 Units 5 Units, subcutaneous, Nightly, First dose on Wed02/14/19 at 1915, Do not mix with other insulins, Indications: Diabetes MellitusIndications:Abby betes Mellitus Given 02/15/2019 9:42 PM CDT 5 Units Right Upper Arm Given 02/14/2019 7:41 PM CDT 5 Units Ri ght Upper Arm insulin glargine (LANTUS,BASAGLAR) pen injection 5 Units 5 Units, subcutaneous, Once, On Wed02/15/19 at 1545, For 1 dose, Do not mix with other insulins Given 02/15/2019 3:31 PM CDT 5 Units Right Upper Arm insulin lispro (HumaLOG) [...] Upper Arm insulin lispro (HumaLOG) pen injection 2 Units 2 Units, subcutaneous, 3 times daily with [...] insulin dose., Indications: Diabetes MellitusIndications:Diabetes Mellitus Given 02/15/2019 11:43 AM CDT 2 Units Righ t Upper Arm Given 02/15/2019 8:00 AM CDT 2 Units Le ft Lower Abdomen insulin lispro (HumaLOG) pen injection 5 Units [...] 5 Units Ri ght Upper Arm insulin regular (HumuLIN R, NovoLIN R) 100 Units in sodium chloride 0.9% 100 mL (1 Units/mL) infusion 6 Units/hr (6 mL/hr), 1 units/mL, intravenous, [...] connecting to patient., STATIndications:Hyperglycemi a Rate/Dose Change 02/14/2019 6:10 PM CDT 0.3 Units/hr 0.3 mL/hr Rate/Dose Change 02/14/2019 5:05 PM CDT 0.6 Units/hr 0.6 m L/hr Rate/Dose Change 02/14/2019 4:20 PM CDT 0.5 Units/hr 0.5 m L/hr metoclopramide (REGLAN) injection 5 mg 5 mg, [...] 0851, Indications: Nausea and VomitingIndications:Nausea and Vomiting ondansetron ODT (ZOFRAN-ODT) disintegrating tablet 8 mg 8 mg, oral, Once, On Wed02/14/19 at 0315, For 1 dose Given 02/14/2019 3:41 AM CDT [address] (PROTONIX) extended release tablet 40 mg 40 mg, oral, 2 times daily, First dose on Wed02/15/19 at 1000, Do not crush, chew, cut, dissolve, open or otherwise manipulate tablet/capsule., Indications: ulcerative esophagitisIndications:ulcerative esophagitis Given 02/16/2019 8:56 AM CDT 40 mg sodium chloride 0.9% bolus 1,000 mL 1,000 mL, intravenous, at 1,000 mL/hr, Administer over 1 Hours, Once, On Wed02/14/19 at 0158, For 1 dose New Bag 02/14/2019 5:16 AM CDT 1,000 mL 1000 mL/hr sodium chloride 0.9% flush 0.5-20 mL [...] after each use. sodium chloride 0.9% infusion 30 mL/hr, intravenous, Continuous, Starting on Wed02/15/19 at 0800, Pre-Procedure (GI) New Bag 02/15/2019 7:26 AM CDT 30 mL/hr 30 mL/hr sodium chloride 0.9% infusion 75 mL/hr, intravenous, Continuous, Starting on Wed02/14/19 at 1915 New Bag 02/16/2019 11:20 AM CDT 75 mL/hr 75 mL/hr Rate/Dose Verify 02/16/2019 11:15 AM CDT 75 mL/hr 75 mL/ hr Rate/Dose Verify 02/16/2019 7:30 AM CDT 75 mL/hr 75 mL/h r sodium chloride 0.9% with potassium chloride 20 mEq/L infusion (premix) 200 mL/hr, intravenous, Continuous, Starting on Wed02/14/19 at 0531 New Bag 02/14/2019 6:52 AM CDT 200 mL/hr 200 mL/hr documented in this encounter Discontinued Medications [...] Pascual Perry RN - Reason: Patient/family refused) 0721 (JUL Hold - Provider: Automatic Transfer Provider - Reason: Patient not available)09 (JUL Unhold - Provider: Automatic Transfer Provider)2136 (Not Given - Provider: Pascual Perry RN - Reason: Patient/family refused) insulin glargine (LANTUS,BASAGLAR) pen injection 5 Units 5 Units, subcutaneous, Nightly, First dose on Wed02/14/19 at 1915, Do not mix with other insulins, Indications: Diabetes Mellitus 194 (Given - Provider: Pascual Perry RN) 0721 (JUL Hold - Provider: Automatic Transfer Provider - Reason: Patient not available)09 (JUL Unhold - Provider: Automatic Transfer Provider)2141 (Given - Provider: Pascual Perry RN) insulin glargine (LANTUS,BASAGLAR) pen injection 5 Units (COMPLETED) 5 Units, subcutaneous, Once, On Wed02/15/19 at 1545, For 1 dose, Do not mix with other insulins 153 (Given - Provider: Evert Martinez RN) insulin [...] 2122 (Given - Provider: Pascual Perry RN) 0721 (MAR Hold - Provider: Automatic Transfer Provider - Reason: Patient not available)0917 (MAR Unhold - Provider: Automatic Transfer Provider)2137 (Not Given - Provider: Pascual Perry RN - Reason: Order parameters not met) insulin lispro (HumaLOG) pen injection 1-5 Units 1-5 Units, subcutaneous, 3 times daily with meals, First dose on Wed02/14/19 at 1914, Blood Sugar Mid Dose meal time - PO patients 139 or less No insulin 140 - 175 1 unit 176 - 200 2 unit 201 - 250 3 units 251 - 299 5 units Greater than 299 Call MD for hyperglycemia management instructions Do NOT hold for NPO status., Indications: Diabetes Mellitus 1914 (Due) 0721 (MAR Hold - Provider: Automatic Transfer Provider - Reason: Patient not available)0800 (Given - Provider: Evert Martinez RN)0917 (MAR Unhold - Provider: Automatic Transfer Provider)1144 (Given - Provider: Evert Martinez RN)1718 (Not Given - Provider: Evert Martinez RN - Reason: Order parameters not met) 0748 (Given - Provider: Mann Cantu, MARY)1125 (Given - Provider: Mann Cantu, RN) insulin lispro (HumaLOG) pen injection 2 Units (CANCELED) 2 Units, subcutaneous, 3 times daily with meals, First dose on Wed02/14/19 at 1914, If BG 100 mg/dl or more, give [...] insulin dose., Indications: Diabetes Mellitus 1914 (Due) 0721 ([facility] Hold - Provider: Automatic Transfer Provider - [...] not met) 0749 (Given - Provider: Mann Cantu RN)1125 (Given - Provider: Mann Cantu RN) metoclopramide (REGLAN) injection 5 mg 5 mg, intravenous, Administer over 1 Minutes, 3 times daily, First dose on Wed02/14/19 at 1000 1029 (Given - Provider: Ida Hair, MARY)1622 (Given - Provider: Ida Hair, RN)2129 (Given - Provider: Pascual Perry, MARY) 0721 (MAR Hold - Provider: Automatic Transfer Provider - Reason: Patient not available)0900 (Given - Provider: Evert Martinez RN)0917 (MAR Unhold - Provider: Automatic Transfer Provider)1530 (Given - Provider: Evert Martinez RN)2143 (Given - Provider: Pascual Perry, MARY) 0851 (Not Given - Provider: Mann Cantu RN - Reason: Patient/family refused) ondansetron ODT (ZOFRAN-ODT) disintegrating tablet 8 mg (COMPLETED) 8 mg, oral, Once, On Wed02/14/19 at 0315, For 1 dose 0341 (Given - Provider: Concepcion Emerson RN) pantoprazole DR (PROTONIX) extended release tablet 40 mg 40 mg, oral, 2 times daily, First dose on Wed02/15/19 at 1000, Do not crush, chew, cut, dissolve, open or otherwise manipulate tablet/capsule., Indications: ulcerative esophagitis 1147 (Not Given - Provider: Pascual Perry RN - Reason: Patient/family refused - Comment: pt vomitting, pt refused, saying she is little nauseated, pulled the medication)2141 (Not Given - Provider: Pascual Perry RN - Reason: Patient/family refused) 0856 (Given - Provider: Mann Cantu RN) sodium chloride 0.9% bolus 1,000 mL (COMPLETED) 1,000 mL, intravenous, at 1,000 mL/hr, Administer over 1 Hours, Once, On Wed02/14/19 at 0158, For 1 dose 0516 (New Bag - Provider: Concepcion Emerson, MARY)0616 (Due: Stopped - Provider: Concepcion Emerson RN) sodium chloride 0.9% flush 0.5-20 mL 0.5-20 mL, intra-catheter, Every 8 hours scheduled, First dose on Wed02/15/19 at 0800, Flush volume based on line type and size. 0918 (Not Given - Provider: Evert Martinez RN - Reason: IV Infusing)1444 (Not Given - Provider: Evert Martinez RN - Reason: IV Infusing)2137 (Given - Provider: Pascual Perry, MARY) 0623 (Given - Provider: Pascual Peryr RN)1336 (Not Given - Provider: Lior Melendez RN - Reason: IV Infusing) Continuous Medication Order 02/14/2019 02/15/2019 02/16/2019 dextrose 5% and sodium chloride 0.45% infusion (premix) (CANCELED) 100 mL/hr, intravenous, Continuous, Starting on Wed02/14/19 at 1000 0940 (New Bag - Provider: Ida Hair, RN)1853 (Stopped - Provider: Ida Hair, RN) insulin regular (HumuLIN R, NovoLIN R) [...] STAT 0509 (New Bag - Provider: Concepcion Emerson RN - Comment: ayan glucostab)0607 (Rate/Dose Change - Provider: Cori Travis RN)0723 (Rate/Dose Change - Provider: Diana Patel RN)0844 (Rate/Dose Change - Provider: Ida Hair RN)0939 (Rate/Dose Change - Provider: Ida Hair RN)1039 (Rate/Dose Change - Provider: Ida Hair RN)1141 (Rate/Dose Change - Provider: Ida Hair RN)1247 (Rate/Dose Change - Provider: Ida Hair, RN)1423 (Rate/Dose Change - Provider: Ida Hair [...] Yolette Fuller RN)0921 (Stopped - Provider: Evert Martinez RN) sodium chloride 0.9% infusion 75 mL/hr, intravenous, Continuous, Starting on Wed02/14/19 at 1915 1853 (New Bag - Provider: Ida Hair RN) 0731 (Rate/Dose Verify - Provider: Derek Arevalo MD)0752 (Stopped - Provider: Derek Arevalo MD)0815 (Stopped - Provider: Mariaelena Cm, RN)0921 (Restarted - Provider: Evert Martinez, RN)0925 (New Bag - Provider: Evert Martinez, RN)2136 (New Bag - Provider: Pascual ePrry, RN) 0730 (Rate/Dose Verify - Provider: Mann Cantu, MARY)1115 (Rate/Dose Verify - Provider: Mann Cantu, RN)1120 (New Bag - Provider: Mann Cantu, RN) sodium chloride 0.9% with potassium chloride 20 mEq/L infusion (premix) (CANCELED) 200 mL/hr, intravenous, Continuous, Starting on Wed02/14/19 at 0531 0652 (New Bag - Provider: Diana Patel, MARY) PRN Medication Order 02/14/2019 02/15/2019 02/16/2019 dextrose [...] episode of hypoglycemia., Indications: hypoglycemic disorder 0721 (JUL Hold - Provider: Automatic Transfer Provider - Reason: Patient not available)0917 (JUL Unhold - Provider: Automatic Transfer Provider) dextrose [...] episode of hypoglycemia., Indications: hypoglycemic disorder 0721 ([facility] Hold - Provider: Automatic Transfer Provider - Reason: Patient not available)09 ([facility] Unhold - Provider: Automatic Transfer Provider) glucagon [...] each episode of hypoglycemia., Indications: Hypoglycemia 0721 ([facility] Hold - Provider: Automatic Transfer Provider - Reason: Patient not available)09 ([facility] Unhold - Provider: Automatic Transfer Provider) ondansetron (ZOFRAN) injection 4 mg(Linked Group 2) 4 mg, intravenous, Administer over 2 Minutes, Every 6 hours PRN, nausea, vomiting, if not tolerating PO, Starting on Wed02/14/19 at 0851, Indications: Nausea and Vomiting 0721 ([facility] Hold - Provider: Automatic Transfer Provider - Reason: Patient not available)0917 ([facility] Unhold - Provider: Automatic Transfer Provider)0925 (Given - Provider: Evert Martinez, MARY) ondansetron ODT (ZOFRAN-ODT) disintegrating tablet 4 mg(Linked Group 2) 4 mg, oral, Every 6 hours PRN, nausea, vomiting, Starting on Wed02/14/19 at 0851, Indications: Nausea and Vomiting 0721 ([facility] Hold - Provider: Automatic Transfer Provider - Reason: Patient not available)0917 ([facility] Unhold - Provider: Automatic Transfer Provider)0925 (See [...] Count Last Ordered Date First Ordered Date sodium chloride 0.9% flush 0.5-20 mL 1 01/31 sodium chloride 0.9% infusion 1 02/15/2019 dextrose (D10W) 10% bolus 1-500 mL 1 2018 dextrose (D10W) 10% bolus 250 mL 1 02/15/20 dextrose 5% infusion 2 02/14/2019 dextrose gel in packet 15 g 1 02/14/2019 enoxaparin (LOVENOX) syringe 40 mg 1 2018 glucagon injection 1 mg 3 02/14/2019 insulin regular bolus from bag 1-10 Units 1 02/14/2019 ondansetron ODT (ZOFRAN-ODT) disintegrating tablet 4 mg 1 02/14/2019 potassium chloride 40 mEq in sodium chloride 0.9% 500 mL IVPB 2 02/14/2019 sodium chloride 0.45% infusion 2 02/14/2019 sodium chloride 0.9% 1,000 m L with potassium chloride 20 mEq infusion 2 02/14/2019 Lab Orders Without Results Count Last [...] 02/14/2019 documented in this encounter Care Teams Community Living Coach Relationship Specialty Start Date End Date Carrie Joesph PA [address] [place] [address] PCP - General 10/04/18 07/19/21 Warren Phillips MD [address] [place] [address] Consulting Physician Gastroenterology 02/16/19 documented as of this encounter
--- OUTSIDE RECORDS SUMMARY | 2024-05-10 18:40 | XMS_ITS | Encounter Summary ---
Author Organization [facility] Healthcare Address [address] [place] [address] Care Team Providers Care Farm Instructor Name Role Phone Carrie Joseph Primary Care Provider + Warren Phillips MD Unavailable [phone] Reason for Visit * Reason Comments Nausea Vomiting Encounter Details Date Type Department Care Team (Latest Contact Info) Description 04/24/2019 7:48 PM INDUSTRIAL CLEANING TECHNICIAN - 04/25/2019 2:00 PM INDUSTRIAL CLEANING TECHNICIAN Hospital Encounter [facility] [address] [place] [address] Tavo Ochoa MD [address] [facility] [address] Gio Sewell MD [address] [place] [address] Jhonatan Rey MD 1 [facility] [place] [address] Diabetic ketoacidosis without coma associated with type [...] on file Legal Sex Female 3:13 AM INDUSTRIAL CLEANING TECHNICIAN Gender Identity Not on file Sexual Orientation Not on file documented as of this encounter Last Filed Vital Signs Vital Sign Reading Time Taken Comments Blood Pressure 119/83 04/25/2019 12:00 PM INDUSTRIAL CLEANING TECHNICIAN Pulse 113 04/25/2019 12:00 PM INDUSTRIAL CLEANING TECHNICIAN Temperature 37.2 ??C (99 ??F) 04/25/2019 12: 00 PM INDUSTRIAL CLEANING TECHNICIAN Respiratory Rate 18 04/25/2019 12:0 0 PM INDUSTRIAL CLEANING TECHNICIAN Oxygen Saturation 100% 04/25/2019 12: 00 PM INDUSTRIAL CLEANING TECHNICIAN Inhaled Oxygen Concentration - - Weight 59.8 kg (131 lb 13.4 oz) 019 10:45 PM INDUSTRIAL CLEANING TECHNICIAN Height 154.9 cm (5' 0.98 ) 04/25/2019 1 1:24 AM INDUSTRIAL CLEANING TECHNICIAN Body Mass Index 24.92 04/24/2019 10:45 PM INDUSTRIAL CLEANING TECHNICIAN documented in this encounter Discharge Diagnoses Diagnosis Type 1 diabetes mellitus with ketoacidosis without coma (HCC) - TYPE 1 DIABETES MELLITUS WITH KETOACIDOSIS WITHOUT COMA Other disorders of phosphorus metabolism - OTHER DISORDERS OF PHOSPHORUS METABOLISM Dehydration - DEHYDRATION Hypomagnesemia - HYPOMAGNESEMIA Disorders of magnesium metabolism Acute pharyngitis, unspecified - ACUTE PHARYNGITIS, UNSPECIFIED Major depressive disorder, single episode, unspecified - MAJOR DEPRESSIVE DISORDER, SINGLE EPISODE, UNSPECIFIED intermediate teacher (current) use of insulin (HCC) - CORRECTION (CURRENT) USE OF INSULIN 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 (HCC) - TYPE 1 DIABETES MELLITUS WITH DIABETIC AUTONOMIC (POLY)NEUROPATHY Gastroparesis - GASTROPARESIS Other terminologist (current) drug therapy - OTHER CORRECTION (CURRENT) DRUG THERAPY documented in this encounter Discharge Summaries * Jhonatan Rey MD - 04/25/2019 12:44 PM CST Inpatient Discharge Summary BRIEF OVERVIEW Admitting Provider: Gio Sewell MD Discharge Provider: Jhonatan Ricci* Primary Care Physician at Discharge: KEANU Conway [phone] Admission Date: 04/24/2019 Discharge Date: 04/25/2019 Date of Service: 04/25/2019 Primary Discharge Diagnosis: Diabetic ketoacidosis without coma associated with type 1 diabetes mellitus (CMS/HCC) Secondary Discharge Diagnosis: Principal Problem: Diabetic ketoacidosis without coma associated with type 1 diabetes mellitus (CMS/HCC) Active Problems: Dehydration Diabetic gastroparesis (CMS/HCC) Hypophosphatemia Hypomagnesemia Metabolic acidosis Pharyngitis DETAILS OF HOSPITAL STAY Presenting Problem/History of Present Illness: Diabetic ketoacidosis without coma associated with type 1 diabetes mellitus (CMS/HCC) Hospital Course: Admitted with DKA, no evidence of infections, she denied non-compliance. Sent for CXR, and drug screen. DKA protocol with insulin drip used and she recovered nicely, switched to SQ regimen and dischargedhome. Active Issues Requiring Follow-up: None Test Results Pending at Discharge: Operative Procedures Performed: Other Procedures: Non Pertinent Test Results: None Discharge Details Physical Exam at Discharge: Discharge Condition: improved and stable. Pulse: 113 Resp: 18 BP: 119/83 Temp: 37.2 ??C (99 ??F) Pertinent Exam Findings at Discharge: None Discharge Disposition: Discharge to home or self care Code Status at Discharge: Full Code Discharge Instructions: Activity Instructions Discharge activity: Resume normal activity Diet Instructions Adult Discharge Diet Diet Type: Return to previous diet Discharge Medications: Your medication list CONTINUE taking these medications insulin glargine 100 unit/mL (3 mL) insulin pen Commonly known as: LANTUS,BASAGLAR insulin lispro 100 unit/mL injection Commonly known as: HumaLOG ADMELOG U-100 INSULIN LISPRO SUBQ metoclopramide 1 mg/mL solution Commonly known as: REGLAN norethindrone-e.estradiol-iron 1 mg-20 mcg (21)/75 mg (7) per tablet Commonly known as: JUNEL FE 05/[address] 40 mg EC tablet Commonly known as: PROTONIX Take 1 tablet (40 mg total) by mouth 2 (two) times a day Outpatient Follow-Up: No future appointments. Discharge Process duration is 35 minutes. STRIAL CLEANING TECHNICIAN documented in this encounter Discharge Instructions * Discharge Instructions* Kanchan Loaiza RN - 04/25/2019 1:04 PM INDUSTRIAL CLEANING TECHNICIAN Images from the original note were not included. Diabetic Ketoacidosis WHAT YOU NEED TO KNOW: Diabetic ketoacidosis (DKA) is a life-threatening condition caused by dangerously high blood sugar levels. Your blood sugar levels become high because your body does not have enough insulin. Insulin helps move sugar out of the blood so it can be used for energy. The lack of insulin forces your bodyto use fat instead of sugar for energy. As fats are broken down, they leave chemicals called ketones that build up in your blood. Ketones are dangerous at high levels. DISCHARGE INSTRUCTIONS: Call 911 for any of the following: ?? You have a seizure. ?? You begin to breathe fast, or are short of breath. ?? You become weak and confused. Return to the emergency department if: ?? You have fruity, sweet breath. ?? You have severe, new stomach pain and are vomiting. ?? You are more drowsy than usual. Contact your healthcare provider if: ?? Your blood sugar level is lower or higher than your healthcare provider says it should be. ?? You have ketones in your blood or urine. ?? You have a fever or chills. ?? You are more thirsty than usual. ?? You are urinating more often than usual. ?? You have questions or concerns about your condition or care. Medicines: ?? Insulin and diabetes medicine decreases the amount of sugar in your blood. ?? Take your medicine as directed. Call your healthcare provider if you think your medicine is not helping or if you have side effects. Tell him if you are allergic to any medicine. Keep a list of the medicines, vitamins, and herbs you take. Include the amounts, and when and why you take them. Bring the list or the pill bottles to follow-up visits. Carry your medicine list with you in case of an emergency. Help prevent DKA: The best way to prevent DKA is to control your diabetes. Ask your healthcare provider for more information on how to manage your diabetes. The following may help decrease your risk for DKA: ?? Monitor your blood sugar levels closely if you have an infection, are stressed, or experience trauma. Check your blood sugar levels often. You may need to check at least 3 times each day. If your blood sugar level is too high, give yourself insulin as directed by your healthcare provider. Your healthcare provider can show you how to use a blood glucose monitor to check your levels. ?? Manage your sick days. When you are sick, you may not eat as much as you normally would. You mayneed to change the amount of insulin you give yourself. You may need to check your blood sugar level more often than usual. Make a plan with your healthcare provider about how to manage your diabeteswhen you are sick. ?? Check your ketones as directed. Follow your healthcare provider's instructions about when you should check your blood or urine for ketones. Your healthcare provider may give you a machine to checkyour blood ketones. Urine ketones can be checked with sticks you dip in your urine. Do not exerciseif you have ketones in your urine or blood. ?? Know how to treat DKA symptoms at home. If you have signs of DKA, drink more liquids that do notcontain sugar, such as water. Take your insulin as directed by your healthcare provider and go to the nearest emergency room. Follow up with your healthcare provider as directed: You may need to return often for blood tests. Write down your questions so you remember to ask them during your visits. ?? 2016 [employer]. Information is for End User's use only and may not be sold, redistributed or otherwise used for commercial purposes. All illustrations and images included in CareNotes?? are the copyrighted property of [employer] or [employer]. The above information is an cleaning maid only. It is not intended as medical advice for individual conditions or treatments. Talk to your doctor, nurse or pharmacist before following any medical regimen to see if it is safe and effective for you. Diabetic Ketoacidosis WHAT YOU NEED TO KNOW: Diabetic ketoacidosis (DKA) is a life-threatening condition caused by dangerously high blood sugar levels. Your blood sugar levels become high because your body does not have enough insulin. Insulin helps move sugar out of the blood so it can be used for energy. The lack of insulin forces your bodyto use fat instead of sugar for energy. As fats are broken down, they leave chemicals called ketones that build up in your blood. Ketones are dangerous at high levels. DISCHARGE INSTRUCTIONS: Call 911 for any of the following: ?? You have a seizure. ?? You begin to breathe fast, or are short of breath. ?? You become weak and confused. Seek care immediately if: ?? You are more drowsy than usual. Contact your healthcare provider if: ?? You have fruity, sweet breath. ?? You have severe, new stomach pain and are vomiting. ?? Your blood sugar level is lower or higher than your healthcare provider says it should be. ?? You have ketones in your blood or urine. ?? You have a fever or chills. ?? You are more thirsty than usual. ?? You are urinating more often than usual. ?? You have questions or concerns about your condition or care. Medicines: ?? Insulin and diabetes medicine decreases the amount of sugar in your blood. ?? Take your medicine as directed. Contact your healthcare provider if you think your medicine is not helping or if you have side effects. Tell him or her if you are allergic to any medicine. Keep a list of the medicines, vitamins, and herbs you take. Include the amounts, and when and why you take them. Bring the list or the pill bottles to follow-up visits. Carry your medicine list with you in case of an emergency. Help prevent DKA: The best way to prevent DKA is to control your diabetes. Ask your healthcare provider for more information on how to manage your diabetes. The following may help decrease your risk for DKA: ?? Monitor your blood sugar levels closely if you have an infection, are stressed, sick, or experience trauma. Check your blood sugar levels often. You may need to check at least 3 times each day. Ifyour blood sugar level is too high, give yourself insulin as directed by your healthcare provider. ?? Manage your sick days. When you are sick, you may not eat as much as you normally would. You mayneed to change the amount of insulin you give yourself. You may need to check your blood sugar level more often than usual. Make a plan with your healthcare provider about how to manage your diabeteswhen you are sick. ?? Check your ketones as directed. Follow your healthcare provider's instructions about when you should check your blood or urine for ketones. Your healthcare provider may give you a machine to checkyour blood ketones. Urine ketones can be checked with sticks you dip in your urine. Do not exerciseif you have ketones in your urine or blood. ?? Know how to treat DKA. If you have signs of DKA, drink more liquids that do not contain sugar, such as water. Take your insulin as directed by your healthcare provider and go to the nearest emergency room. Follow up with your healthcare provider as directed: You may need to return often for blood tests. Write down your questions so you remember to ask them during your visits. ?? 2017 [employer] Information is for End User's use only and may not be sold, redistributed or otherwise used for commercial purposes. All illustrations and images included in CareNotes?? are the copyrighted property of [employer]. or [employer]. The above information is an cleaning maid only. It is not intended as medical advice for individual conditions or treatments. Talk to your doctor, nurse or pharmacist before following any medical regimen to see if it is safe and effective for you. STRIAL CLEANING TECHNICIAN documented in this encounter Medications at Time [...] for past several days 0 norethindrone-e.est radiol-iron (JUNEL FE 05/22) 1 mg-20 mcg (21)/75 [...] documented in this encounter Progress Notes * Lucinda Woodward, RD - 04/25/2019 11:26 AM CST Nutrition Assessment Reason for Assessment: Screened at Nutrition Risk and Initial Nutrition Assessment Encounter Date: 04/25/19 11:26 AM Nutrition Assessment and Plan: Patient is a 23 y.o. female. Admit Dx: DIABETIC KETOACIDOSIS WITHOUT COMA ASSOCIATED WITH TYPE 1 DIABETES MELLITUS (CMS/HCC). Admitted on 04/24/2019, current LOS is 1 days. Nutrition Screen What diet do you follow at home?: consistent carb diet Have You Recently Lost Weight Without Trying?: No Poor Oral Intake for Four or More Days Prior to Admission: No Current diet order: Adult Diet Special; Consistent Carbohydrate Pt intake NA. PO intakes: NA Wt Readings from Last 10 Encounters: 04/24/19 59.8 kg (131 lb 13.4 oz) [...] 01/02/18 51.6 kg (113 lb 12.1 oz) Nutrition Diagnosis 1: Inadequate energy intake Related to: Nausea, Vomiting Evidenced by: Physicalfinding ?? Interventions: [place] diet preferences within the limits of nutrition care order ?? Monitoring and Evaluation: Discharge plans, Labs, PO intake ?? Goals: Adequate nutrition to meet estimated needs by next assessment ? Estimated needs: ?? Total Kcal/kg Estimated Needs : 1794 based on Kcal/k. Type of Weight Used for Estimated Kcals: Current ?? MSJ Total Energy Needs: 1709.4 kcal using Stress Factor: 1.1 Activity Factor: 1.2 ?? DEBORAH State Total Energy Needs + Fever Factor: 1709.4 ?? Total Protein Estimated Needs (gm): 47.84 Protein Needs Based on g/k.8 Type of Weight Used for Estimated Protein : Current. ?? Total Fluid Estimated Needs: 1794 Fluid Needs Based on : 30 ml/kg. Objective Anthropometrics Weight: 59.8 kg (131 lb 13.4 oz) Admission Weight : 59.8 kg Weight Change: 0.83 kg (1.83 lbs) IBW/kg (Calculated) : 47.6 kg Height: 154.9 cm (5' 0.98 ) Weight in (lb) to have BMI = 25: 132 BMI (Calculated): 24.9 3 Day I/O Summary 04/230 - 04/25 0659 In: 620 [I.V.:620] Out: 650 [Urine:600] Temp: 37.4 ??C (99.3 ??F) Past Medical History: Diagnosis Date ??? Depression ??? Diabetes mellitus (CMS/HCC) ??? HX OTHER MEDICAL 2011 Diabetes mellitus, type 1 ??? Miscarriage Medications and Lab Review: Scheduled Meds: azithromycin, 500 mg, intravenous, Q24H BOB insulin glargine, 10 Units, subcutaneous, QAM insulin lispro, 1-4 Units, subcutaneous, Nightly insulin lispro, 1-7 Units, subcutaneous, TID with meals insulin lispro, 3 Units, subcutaneous, TID with meals Continuous Infusions: dextrose 5%, 100 mL/hr, Last Rate: 100 mL/hr (04/25/19 0839) insulin regular, 0-30 Units/hr, Last Rate: 1 Units/hr (04/25/19 1123) sodium chloride 0.45%, 150 mL/hr, Last Rate: 150 mL/hr (04/25/19 1034) Sodium Date Value Ref Range Status 04/25/2019 134 (L) 135 - 145 mmol/L Final Potassium, pl Date Value Ref Range Status 04/25/2019 3.6 3.3 - 4.9 mmol/L Final BUN Date Value Ref Range Status 04/25/2019 9 8 - 25 mg/dL Final Creatinine Date Value Ref Range Status 04/25/2019 0.36 (L) 0.60 - 1.10 mg/dL Final Phosphorus, pl Date Value Ref Range Status 04/25/2019 3.2 2.3 - 4.5 mg/dL Final Albumin Date Value Ref Range Status 04/24/2019 4.8 3.5 - 5.0 g/dL Final Magnesium Date Value Ref Range Status 04/25/2019 2.0 1.6 - 2.4 mg/dL Final Calcium Date Value Ref Range Status 04/25/2019 9.8 8.5 - 10.3 mg/dL Final Lab Results Component Value Date HGBA1C 9.4 (H) 10/05/2018 POC Glucose: 99(04/25) Nursing Assessment: Bowel Sounds (All Quadrants): Active Emesis Assessment Emesis Color/Appearance: Brown Teodoro Scale Score: 20 Nutrition Follow-Up : 05/01/[address],LDN STRIAL CLEANING TECHNICIAN * Neida Pabon RN - 04/25/2019 10:22 AM CST Patient was asleep, I did not wake. 04/25/19 1022 Referral Data Referral Source Self referral Referral Reason Discharge Planning Prior to Admission Primary Caregiver Self Home Care Services No Living Arrangements Family members Type of Residence Private residence Potential Discharge Needs Patient expects to be discharged to: Private residence STRIAL CLEANING TECHNICIAN * Jhonatan Rey MD - 04/25/2019 10:12 AM CST General Medicine Daily Progress SUBJECTIVE Chief complaint of Sore throat, N/V. Interval History: Sore throat, nausea and vomiting and DKA OBJECTIVE Vitals: 24hr Min/Max: Temp Min: 36.3 ??C (97.3 ??F) Max: 37.4 ??C (99.3 ??F) Pulse Min: 103 Max: 120 BP Min: 99/70 Max: 149/97 Resp Min: 10 Max: 27 SpO2 Min: 98 % Max: 100 % Most Recent : Vitals: 04/25/19 0800 BP: 99/70 Pulse: 107 Resp: 16 Temp: 37.4 ??C (99.3 ??F) SpO2: 98% I/O last 2 completed shifts: In: 620 [I.V.:620] Out: 650 [Urine:600; Emesis/NG output:50] No intake/output data recorded. Physical Exam: Eyes: EOMI, ZORAIDA, sclare non icteric Neck: supple, no nuchal ridigity, no gross carotid bruits appreciated Pharynx: No gross oral lesion, tongue midline, mucosa moist Lungs CTA Heart: [id number] Abd: +BS, Non Tender, Non distended, No gross hepatomegaly Lower Ext: No gross edema Neuro: No new gross deficits appreciated Musculoskeletal: no gross joint erythema, edema, tenderness Skin: No rash Lab/Current Medication Review: Recent Results (from the past 24 hour(s)) Influenza A/B and RSV PCR Nasopharyngeal Collection Time: 04/24/19 8:01 PM Result Value Ref Range Influenza A RNA Not Detected Not Detected Influenza B RNA Not Detected Not Detected RSV RNA Not Detected Not Detected POCT glucose Collection Time: 04/24/19 8:05 PM Result Value Ref Range Glucose, POC 261 (H) 71 - 98 mg/dL Comprehensive metabolic panel Collection Time: 04/24/19 8:27 PM Result Value Ref Range Sodium 133 (L) 135 - 145 mmol/L Potassium, pl 3.7 3.3 - 4.9 mmol/L Chloride 92 (L) 97 - 110 mmol/L CO2 19 (L) 22 - 32 mmol/L Anion gap 22 (H) 2 - 15 mmol/L BUN 14 8 - 25 mg/dL Creatinine 0.45 (L) 0.60 - 1.10 mg/dL Glucose 322 (H) 70 - 199 mg/dL Calcium 10.6 (H) 8.5 - 10.3 mg/dL Bilirubin, total 0.6 0.1 - 1.2 mg/dL Protein, pl 7.8 6.5 - 8.5 g/dL Albumin 4.8 3.5 - 5.0 g/dL Alk phos 83 40 - 130 Units/L ALT 10 7 - 45 Units/L AST 15 10 - 45 Units/L CBC with auto differential Collection Time: 04/24/19 8:27 PM Result Value Ref Range WBC 6.1 3.8 - 9.9 K/cumm Hgb 14.6 11.9 - 15.5 g/dL Hct 42.7 35.6 - 45.5 % Plt 383 150 - 400 K/cumm MPV 9.3 9.1 - 12.3 fL RBC 5.02 3.90 - 5.20 M/cumm MCV 85.1 81.3 - 96.4 fL MCH 29.1 27.1 - 33.3 pg MCHC 34.2 32.3 - 35.7 g/dL RDW CV 13.8 11.1 - 14.9 % RDW SD 42.8 35.7 - 48.1 fL NRBC abs 0.00 0.00 - 0.01 K/cumm Lipase Collection Time: 04/24/19 8:27 PM Result Value Ref Range Lipase 9 (L) 10 - 99 Units/L hCG, blood, quantitative Collection Time: 04/24/19 8:27 PM Result Value Ref Range hCG, quant <5.0 0.0 - 5.0 IUnits/L eGFR Collection Time: 04/24/19 8:27 PM Result Value Ref Range GFR 142 mL/min/1.73 m2 Manual Differential Collection Time: 04/24/19 8:27 PM Result Value Ref Range Differential Manual Cells Counted 100 Neutrophil abs 4.7 1.7 - 6.5 K/cumm Lymphocyte abs 1.3 0.8 - 3.3 K/cumm Monocyte abs 0.1 (L) 0.2 - 0.8 K/cumm Neutrophil pct 74.0 % Lymphocyte pct 21.0 % Monocyte pct 1.0 % Neutrophilic bands 4.0 0.0 - 5.0 % RBC morphology Consistent with RBC Indicies Platelet estimate Adequate Mononucleosis screen Collection Time: 04/24/19 8:27 PM Result Value Ref Range Mononucleosis Negative Negative POCT glucose Collection Time: 04/24/19 9:37 PM Result Value Ref Range Glucose, POC 244 (H) 71 - 98 mg/dL POCT glucose Collection Time: 04/24/19 10:45 PM Result Value Ref Range Glucose, POC 174 (H) 71 - 98 mg/dL POCT glucose Collection Time: 04/24/19 11:41 PM Result Value Ref Range Glucose, POC 198 (H) 71 - 98 mg/dL Basic metabolic panel Collection Time: 04/25/19 12:04 AM Result Value Ref Range Sodium 134 (L) 135 - 145 mmol/L Potassium, pl 3.6 3.3 - 4.9 mmol/L Chloride 97 97 - 110 mmol/L CO2 18 (L) 22 - 32 mmol/L Anion gap 19 (H) 2 - 15 mmol/L BUN 13 8 - 25 mg/dL Creatinine 0.36 (L) 0.60 - 1.10 mg/dL Glucose 217 (H) 70 - 199 mg/dL Calcium 9.9 8.5 - 10.3 mg/dL Magnesium Collection Time: 04/25/19 12:04 AM Result Value Ref Range Magnesium 1.4 (L) 1.6 - 2.4 mg/dL Phosphorus Collection Time: 04/25/19 12:04 AM Result Value Ref Range Phosphorus, pl 1.4 (L) 2.3 - 4.5 mg/dL eGFR Collection Time: 04/25/19 12:04 AM Result Value Ref Range GFR 153 mL/min/1.73 m2 POCT glucose Collection Time: 04/25/19 12:38 AM [...] 153 mL/min/1.73 m2 POCT glucose Collection Time: 04/25/19 8:37 AM Result Value Ref Range Glucose, POC 90 71 - 98 mg/dL POCT glucose Collection Time: 04/25/19 9:37 AM Result Value Ref Range Glucose, POC 95 71 - 98 mg/dL Current Facility-Administered Medications Medication Dose Route Frequency Provider Last Rate Last Dose ??? azithromycin (ZITHROMAX) 500 mg in sodium chloride 0.9% 250 mL IVPB 500 mg intravenous Q24H Kelly Sewell MD 255 mL/hr at 04/25/19 0446 500 mg at 04/25/19 0446 ??? dextrose (D10W) 10% bolus 1-500 mL 1-500 mL intravenous PRN Tavo Ochoa MD ??? dextrose gel in packet 15 g 15 g oral Q15 Min PRN Jhonatan Rey MD Or ??? dextrose (D10W) 10% bolus 250 mL 250 mL intravenous Q15 Min PRN Jhonatan Rey MD ??? dextrose 5% infusion 100 mL/hr intravenous Continuous Gio Sewell MD 100 mL/hr at 839 100 mL/hr at 04/25/19 0839 ??? glucagon injection 1 mg 1 mg intramuscular Q30 Min PRN Jhonatan Rey MD ??? insulin glargine (LANTUS,BASAGLAR) pen injection 10 Units 10 Units subcutaneous QAM Jhonatan Rey MD ??? insulin lispro (HumaLOG) pen injection 1-4 Units 1-4 Units subcutaneous Nightly Jhonatan Rey MD ??? insulin lispro (HumaLOG) pen injection 1-7 Units 1-7 Units subcutaneous TID with meals Jhonatan Rey MD ??? insulin lispro (HumaLOG) pen injection 3 Units 3 Units subcutaneous TID with meals Jhonatan Rey MD ??? insulin regular (HumuLIN R, NovoLIN R) 100 Units in sodium chloride 0.9% 100 mL (1 Units/mL) infusion 0-30 Units/hr intravenous Titrated Tavo Ochoa MD 1.6 mL/hr at 04/25/19 0938 1.6 Units/hr at 04/25/19 0938 ??? insulin regular bolus from bag 1-10 Units 1-10 Units intravenous PRN Tavo Ochoa MD ??? ondansetron ODT (ZOFRAN-ODT) disintegrating tablet 4 mg 4 mg oral Q6H PRN Gio Sewell MD Or ??? ondansetron (ZOFRAN) injection 4 mg 4 mg intravenous Q6H PRN Gio Sewell MD ??? potassium chloride 40 mEq in sodium chloride 0.9% 500 mL IVPB 40 mEq intravenous Q4H PRN Gio Sewell MD ??? sodium chloride 0.45% infusion 150 mL/hr intravenous Continuous Gio Sewell MD 100 mL/hr at 04/25/19 0339 100 mL/hr at 04/25/19 0339 A/P: 1. DKA: resolved on DKA protocol. Stopped INsulin drip and start SQ regimen. Sent for Drug screen. Replace electrolytes, start oral diet. Transfer to medical floor 2. Sore throat: Flu virus negative. Will take a look. She is on azithromycin, no leukocytosis or fever. [facility] sent, for strep A and resp panel. 3. HX of diabetic gastroparesis: resumed home meds. Principal Problem: Diabetic ketoacidosis without coma associated with type 1 diabetes mellitus (CMS/HCC) Active Problems: Dehydration Diabetic gastroparesis (CMS/HCC) Hypophosphatemia Hypomagnesemia Metabolic acidosis Pharyngitis Jhonatan Rey MD 04/25/2019 10:12 AM STRIAL CLEANING TECHNICIAN * Vadim Diana, [facility] - 04/24/2019 11:52 PM CST An order to initiate electrolyte [...] daily x3 days, then every other day. Electronically signed by Vadim Diana [facility] [place] at 04/24/2019 11:52 PM INDUSTRIAL CLEANING TECHNICIAN documented in this encounter H&P Notes * Gio Sewell MD - 04/25/2019 12:49 AM CST [facility] Adult Hospitalist Service History and Physical Patient Name: Karina Fuchs Patient : 1995 Age/Sex: 23 y.o. female Room/Bed: [place] [address]/[place] [address] Admission Date/Time: 04/24/2019 7:48 PM Date: 04/25/2019 Time: 12:49 AM Primary Care Physician: KEANU Conway PCP Office Location: [address] [place] [address] PCP SUBJECTIVE: Patient is a 23 y.o. female with a PMHx of type 1 diabetes, recurrent DKAs, depression presents to the ED with a chief complaint of nausea and vomiting. HPI Patient presented to the emergency department with complains of persistent nausea onset since yesterday evening and today started vomiting. Patient states that had been compliant with her insulin regimen. The denies any associated fever, chills, abdominal pain or diarrhea. Complains of sore throat.Patient states that had been exposed to influenza B 4 days ago. Had sore throat since then that progressively is getting worse. The denies any difficulty with swallowing. Denies any cough or sputum production. Denies any ear ache. On further workup in the ED patient was diagnosed with another episode of DKA. She was started on insulin bolus followed with the insulin drip, IV fluids and referred for admission to the ICU for further management. No other complaints at this time. Review of Systems: Constitutional Denies: weight loss, weight gain, fever, chills, night sweats, complains of fatigue Eyes Denies: change in vision, double vision, eye pain, eye discharge, icterus ENT Denies: change in hearing, ear pain, ear discharge, nose bleed, nasal congestion, complains of sorethroat Respiratory Denies: SOB, wheezing, cough, sputum, hemoptysis CV Denies: chest pain, palpitations, syncope, edema, dyspnea GI Denies: abdominal pain, decreased appetite, complains of nausea, vomiting, denies change in bowel habitus, [...] CLASSIC 2017 ??? TONSILLECTOMY Bilateral 2002 Family History: Family [...] src Pulse Resp SpO2 Height Weight 04/25/19 0000 (!) 141/101 -- -- 109 22 100 % -- -- 04/24/19 2300 126/80 -- -- 106 27 100 % -- -- 04/24/19 2245 148/95 36.3 ??C (97.3 ??F) Temporal 111 10 100 % 154.9 cm (5' 1 ) 59.8 kg (131 lb 13.4 oz) 04/24/192099 134/75 -- -- 110 -- 99 % -- -- 04/24/192029 139/76 -- -- 105 -- 99 % -- -- 04/24/191999 121/74 -- -- 115 -- 100 % -- -- 04/24/19 1950 149/97 36.4 ??C (97.6 ??F) Oral 112 18 100 % 165.1 cm (5' 5 ) 59 kg (130 lb) Physical Exam: General: Awake, alert, oriented x4, sick looking Eyes: EOMI, ZORAIDA, sclare non icteric Neck: supple, trachea midline, thyroid not enlarged, no gross carotid bruits appreciated Pharynx: Posterior pharynx erythematous, edematous with purulent vesicles, tongue midline, mucosa dry Lungs CTA Heart: [id number] Abd: +BS, Non Tender, Non distended, No gross hepatomegaly Lower Ext: No gross edema Neuro: Cranial nerves II-XII grossly intact. Moves all extremities equally, no gross sensory deficits Musculoskeletal: no gross joint erythema, edema, tenderness Genitourinary: No suprapubic or CVA tenderness Skin: No skin rashes, warm and dry to palpation Laboratory Results: Recent Results (from the past 24 hour(s)) Influenza A/B and RSV PCR Nasopharyngeal Collection Time: 04/24/19 8:01 PM Result Value Ref Range Influenza A RNA Not Detected Not Detected Influenza B RNA Not Detected Not Detected RSV RNA Not Detected Not Detected POCT glucose Collection Time: 04/24/19 8:05 PM Result Value Ref Range Glucose, POC 261 (H) 71 - 98 mg/dL Comprehensive metabolic panel Collection Time: 04/24/19 8:27 PM Result Value Ref Range Sodium 133 (L) 135 - 145 mmol/L Potassium, pl 3.7 3.3 - 4.9 mmol/L Chloride 92 (L) 97 - 110 mmol/L CO2 19 (L) 22 - 32 mmol/L Anion gap 22 (H) 2 - 15 mmol/L BUN 14 8 - 25 mg/dL Creatinine 0.45 (L) 0.60 - 1.10 mg/dL Glucose 322 (H) 70 - 199 mg/dL Calcium 10.6 (H) 8.5 - 10.3 mg/dL Bilirubin, total 0.6 0.1 - 1.2 mg/dL Protein, pl 7.8 6.5 - 8.5 g/dL Albumin 4.8 3.5 - 5.0 g/dL Alk phos 83 40 - 130 Units/L ALT 10 7 - 45 Units/L AST 15 10 - 45 Units/L CBC with auto differential Collection Time: 04/24/19 8:27 PM Result Value Ref Range WBC 6.1 3.8 - 9.9 K/cumm Hgb 14.6 11.9 - 15.5 g/dL Hct 42.7 35.6 - 45.5 % Plt 383 150 - 400 K/cumm MPV 9.3 9.1 - 12.3 fL RBC 5.02 3.90 - 5.20 M/cumm MCV 85.1 81.3 - 96.4 fL MCH 29.1 27.1 - 33.3 pg MCHC 34.2 32.3 - 35.7 g/dL RDW CV 13.8 11.1 - 14.9 % RDW SD 42.8 35.7 - 48.1 fL NRBC abs 0.00 0.00 - 0.01 K/cumm Lipase Collection Time: 04/24/19 8:27 PM Result Value Ref Range Lipase 9 (L) 10 - 99 Units/L hCG, blood, quantitative Collection Time: 04/24/19 8:27 PM Result Value Ref Range hCG, quant <5.0 0.0 - 5.0 IUnits/L eGFR Collection Time: 04/24/19 8:27 PM Result Value Ref Range GFR 142 mL/min/1.73 m2 Manual Differential Collection Time: 04/24/19 8:27 PM Result Value Ref Range Differential Manual Cells Counted 100 Neutrophil abs 4.7 1.7 - 6.5 K/cumm Lymphocyte abs 1.3 0.8 - 3.3 K/cumm Monocyte abs 0.1 (L) 0.2 - 0.8 K/cumm Neutrophil pct 74.0 % Lymphocyte pct 21.0 % Monocyte pct 1.0 % Neutrophilic bands 4.0 0.0 - 5.0 % RBC morphology Consistent with RBC Indicies Platelet estimate Adequate POCT glucose Collection Time: 04/24/19 9:37 PM Result Value Ref Range Glucose, POC 244 (H) 71 - 98 mg/dL POCT glucose Collection Time: 04/24/19 10:45 PM Result Value Ref Range Glucose, POC 174 (H) 71 - 98 mg/dL POCT glucose Collection Time: 04/24/19 11:41 PM Result Value Ref Range Glucose, POC 198 (H) 71 - 98 mg/dL Basic metabolic panel Collection Time: 04/25/19 12:04 AM Result Value Ref Range Sodium 134 (L) 135 - 145 mmol/L Potassium, pl 3.6 3.3 - 4.9 mmol/L Chloride 97 97 - 110 mmol/L CO2 18 (L) 22 - 32 mmol/L Anion gap 19 (H) 2 - 15 mmol/L BUN 13 8 - 25 mg/dL Creatinine 0.36 (L) 0.60 - 1.10 mg/dL Glucose 217 (H) 70 - 199 mg/dL Calcium 9.9 8.5 - 10.3 mg/dL Magnesium Collection Time: 04/25/19 12:04 AM Result Value Ref Range Magnesium 1.4 (L) 1.6 - 2.4 mg/dL Phosphorus Collection Time: 04/25/19 12:04 AM Result Value Ref Range Phosphorus, pl 1.4 (L) 2.3 - 4.5 mg/dL eGFR Collection Time: 04/25/19 12:04 AM Result Value Ref Range GFR 153 mL/min/1.73 m2 POCT glucose Collection Time: 04/25/19 12:38 AM Result Value Ref Range Glucose, POC 162 (H) 71 - 98 mg/dL ASSESSMENT AND PLAN: Principal Problem: Diabetic ketoacidosis without coma associated with type 1 diabetes mellitus (CMS/HCC) Patient was admitted to the ICU 0 for DKA management per GlucoStabilizer protocol. Received 2 L of IV fluid boluses. The blood sugars currently are less than 250. Will continue with D5 and half-normal saline. Anion gap still remains open. Continue insulin drip until anion gap is closed. Will transition to subcutaneous insulin afterwards. Check BMP and electrolytes every 4 hours, replete as needed per electrolyte replacement pharmacy protocol. Active Problems: Diabetic gastroparesis (CMS/HCC) Continue on Reglan. Zofran as needed for nausea Dehydration Continue IV fluids with D5 half-normal saline. Will monitor strict I&Os. Monitor kidney function with daily BMP. Hypophosphatemia Hypomagnesemia Started on electrolyte replacement pharmacy protocol. Monitor electrolytes every 4 hours for the next 24 hours and replete as needed. The Metabolic acidosis Secondary to DKA. Treatment as above. Pharyngitis Significant for angiitis with purulent pustules in the back of the throat. The Will obtain strep throat and mononucleosis test. Will start on azithromycin. GI and DVT prophylaxis in place Principal Problem: Diabetic ketoacidosis without coma associated with type 1 diabetes mellitus (CMS/HCC) Active Problems: Diabetic gastroparesis (CMS/HCC) Dehydration Hypophosphatemia Hypomagnesemia Metabolic acidosis Pharyngitis Full Code Expected LOS: More than 2 midnights MDM: Moderate complexity Gio Sewell MD Internal Medicine - Hospitalist [facility] - Adult Hospitalist Service CC: KEANU Conway STRIAL CLEANING TECHNICIAN documented in this encounter Nursing Notes * Kanchan Loaiza RN - 04/25/2019 1:04 PM CST Pt dressed and ready for discharge. Will take pt out to director of financial aid via wheelchair. Pt acknowledges understanding of discharge instructions. STRIAL CLEANING TECHNICIAN documented in this encounter ED Notes * Tavo Ochoa MD - 04/24/2019 8:03 PM CST Chief Complaint Patient presents with ??? Nausea ??? Vomiting HPI 9:31 PM Karina Fuchs is a 23 y.o. female with a history of depression, DM. presenting to the ED c/o vomiting onset a couple hours ago. Pt reports that she didn't eat anything abnormal and that thisis not a recurring issue. Pt denies any diarrhea, dysuria or pain. Pt notes that she does not drinkalcohol or take recreational drugs. Pt notes that she is not , also noting her LMP being two weeks ago. No other complaints were made at this time. Patient History Past Medical History: Diagnosis Date ??? [...] Monthly or less ??? Drug use: No Review of Systems Review of Systems Constitutional: [...] are negative. Physical Exam ED Triage Vitals [04/24/19 1950] Temp Pulse Resp BP SpO2 36.4 ??C (97.6 ??F) 112 18 149/97 100 % Temp src Heart Rate Source Patient Position BP Location FiO2 (%) Oral -- -- -- -- Physical Exam Vitals signs and nursing note reviewed. Constitutional: General: She is in acute distress (Mild distress secondary to nausea). Appearance: She is well-developed. HENT: Head: Normocephalic and atraumatic. Eyes: Conjunctiva/sclera: Conjunctivae normal. Neck: Musculoskeletal: Neck supple. Cardiovascular: Rate and Rhythm: Normal rate and regular rhythm. Heart sounds: Normal heart sounds. No murmur. Pulmonary: Effort: Pulmonary effort is normal. No respiratory distress. Breath sounds: Normal breath sounds. Abdominal: General: Bowel sounds are normal. There is no distension. Palpations: Abdomen is soft. Tenderness: There is no tenderness. There is no guarding. Skin: General: Skin is warm and dry. Neurological: Mental Status: She is alert and oriented to person, place, and time. Procedures MDM Labs Reviewed COMPREHENSIVE METABOLIC PANEL - Abnormal Result Value Sodium 133 (*) Potassium, pl 3.7 Chloride 92 (*) CO2 19 (*) Anion gap 22 (*) BUN 14 Creatinine 0.45 (*) Glucose 322 (*) Calcium 10.6 (*) Bilirubin, total 0.6 Protein, pl 7.8 Albumin 4.8 Alk phos 83 ALT 10 AST 15 LIPASE - Abnormal Lipase 9 (*) MANUAL DIFFERENTIAL - Abnormal Differential Manual Cells Counted 100 Neutrophil abs 4.7 Lymphocyte abs 1.3 Monocyte abs 0.1 (*) Neutrophil pct 74.0 Lymphocyte pct 21.0 Monocyte pct 1.0 Neutrophilic bands 4.0 RBC morphology Consistent with RBC Indicies Platelet estimate Adequate POCT GLUCOSE DEVICE - Abnormal Glucose, POC 261 (*) INFLUENZA A/B AND RSV PCR Influenza A RNA Not Detected Influenza B RNA Not Detected RSV RNA Not Detected Narrative: This test is performed using the [employer] Xpert Flu/RSV Assay. This is a multiplex, real-time reverse transcriptase PCR assay that detects influenza A, influenza B, and respiratory syncytial virus RNA. This assay has been cleared by the [place] Food and Drug Administration, and its performance characteristics have been verified by the [facility]. This test is performed using the [employer] Xpert Flu/RSV Assay. This is a multiplex, real-time reverse transcriptase PCR assay that detects influenza A, influenza B, and respiratory syncytial virus RNA. This assay has been cleared by the [place] Food and Drug Administration, and its performance characteristics have been verified by the [facility]. URINALYSIS AND REFLEX TO MICROSCOPIC AND CULTURE CBC WITH AUTO DIFFERENTIAL WBC 6.1 Hgb 14.6 Hct 42.7 Plt 383 MPV 9.3 RBC 5.02 MCV 85.1 MCH 29.1 MCHC 34.2 RDW CV 13.8 RDW SD 42.8 NRBC abs 0.00 HCG, BLOOD, QUANTITATIVE hCG, quant <5.0 EGFR GFR 142 POCT GLUCOSE DEVICE No orders to display BP 134/75 Pulse 110 Temp 36.4 ??C (97.6 ??F) (Oral) Resp 18 Ht 165.1 cm (5' 5 ) Wt 59 kg (130 lb) LMP 04/10/2019 (Approximate) SpO2 99% BMI 21.63 kg/m?? MDM Clinical Impression: Diabetic ketoacidosis without coma associated with type 1 diabetes mellitus ([facility]) This note is prepared by Cl Wright, acting as a scribe for Tavo Ochoa MD.I electronically signed this note at 8:03 PM on 04/24/2019. I, Tavo Ochoa MD, have personally performed the services described in the documentation,reviewed the documentation, as recorded by the scribe in my presence, and it accurately and completely records my words and actions. Tavo Ochoa MD 04/24/192130 STRIAL CLEANING TECHNICIAN * Juana Delarosa RN - 04/24/2019 7:49 PM CST 23 y.o. female pt to ED with complaint of n/v/ since 6pm tonight. Pt also reports cough x4-5 days, non productive, and was around someone yesterday who has Flu B. STRIAL CLEANING TECHNICIAN documented in this encounter Miscellaneous Notes * Plan of Care - Kanchan Loaiza RN - 04/25/2019 12:59 PM CST Goals: Clinical Goals for the Shift: Provide a save and comfortable environment, monitor blood glucose andvital signs. Attempt to control nausea and vomiting. Summary: Pt remains in a safe and comfortable environment, blood sugar WDL vital signs stable. Nausea and vomiting controlled. Pt to be discharged to home. Problem: Health Behavior: Goal: Understanding of discharge needs will improve 04/25/2019 1301 by Kanchan Loaiza RN Outcome: Adequate for Discharge 04/25/2019 1259 by Kanchan Loaiza RN Outcome: Progressing Problem: Fluid Volume: Goal: Maintenance of adequate hydration will improve 04/25/2019 1301 by Kanchan Loaiza RN Outcome: Adequate for Discharge 04/25/2019 1259 by Kanchan Loaiza RN Outcome: Progressing Goal: Will show no signs and symptoms of electrolyte imbalance 04/25/2019 1301 by Kanchan Loaiza RN Outcome: Adequate for Discharge 04/25/2019 1259 by Kanchan Loaiza RN Outcome: Progressing Problem: Nutritional: Goal: Maintenance of adequate nutrition will improve 04/25/2019 1301 by Kanchan Loaiza RN Outcome: Adequate for Discharge 04/25/2019 1259 by Kanchan Loaiza RN Outcome: Progressing Problem: Sensory: Goal: Occurrences of nausea will decrease 04/25/2019 1301 by Kanchan Loaiza RN Outcome: Adequate for Discharge 04/25/2019 1259 by Kanchan Loaiza RN Outcome: Progressing Problem: Physical Regulation: Goal: Complications related to the disease process, condition or treatment will be avoided or minimized 04/25/2019 1301 by Kanchan Loaiza RN Outcome: Adequate for Discharge 04/25/2019 1259 by Kanchan Loaiza RN Outcome: Progressing STRIAL CLEANING TECHNICIAN * Plan of Sandhya - Pascual Perry RN - 04/25/2019 3:43 AM CST Problem: Fluid Volume: Goal: Maintenance of adequate hydration will improve Outcome: Progressing Problem: Health Behavior: Goal: Understanding of discharge needs will improve Outcome: Not Progressing Problem: Fluid Volume: Goal: Will show no signs and symptoms of electrolyte imbalance Outcome: Not Progressing Problem: Nutritional: Goal: Maintenance of adequate nutrition will improve Outcome: Not Progressing Problem: Sensory: Goal: Occurrences of nausea will decrease Outcome: Not Progressing Problem: Physical Regulation: Goal: Complications related to the disease process, condition or treatment will be avoided or minimized Outcome: Not Progressing Goals: Clinical Goals for the Shift: Stabilized glucose, on an insulin gtt with hourly fsbs. Nausea subsiding, no pain, anxiety or shortness of breath. Stable vs & labs. Summary: New admit this shift. On insulin gtt with hourly fingersticks Many episodes of nausea and emesis. Denies any pain or shortness of breath. STRIAL CLEANING TECHNICIAN * ED Procedure Note - Tavo Ochoa MD - 04/24/2019 9:34 PM INDUSTRIAL CLEANING TECHNICIAN Associated Order(s): Critical Care Procedure Critical Care Performed by: Tavo Ochoa MD Authorized by: Tavo Ochoa MD Critical care provider statement: As reflected in the history, physical exam, orders, notes, and/or MDM, I was personally present while the patient was critically ill and provided critical care services for approximately 30 minutes, excluding time involved in separately billable procedures. Critical care was necessary to treat or prevent imminent or life-threatening deterioration of the following condition(s): unstable vital signs acid-base disturbance, diabetic ketoacidosis and lactic acidosis Critical care was time spent by me providing the following: continuous telemetry, serial bedside patient exams, serial laboratory checks and resuscitation withfluids active monitoring of intake/output status and glycemic control I provided emergent necessary critical care medicine services to this patient. I ordered and reviewed test results and/or imaging studies. I spent time discussing the management and therapeutic options for this critically ill patient with the patient themselves or with the appropriate designated surrogate decision-maker. I spent time documenting in the medical record. I admitted this patient to an Intensive Care unit (ICU) and discussed management with the admitting team. Tavo Ochoa MD 04/24/196 STRIAL CLEANING TECHNICIAN documented in this encounter Plan of Treatment Not on file documented as of this encounter Procedures Procedure Name Priority Date/Time Associated Diagnosis Comments DRUG SCREEN, URINE L AND D WITH REFLEX CONFIRMATION Routine 04/25/2019 12:56 PM INDUSTRIAL CLEANING TECHNICIAN URINALYSIS AND REFLEX TO MICROSCOPIC AND CULTURE STAT 04/25/2019 12:56 PM INDUSTRIAL CLEANING TECHNICIAN POCT GLUCOSE DEVICE Routine 04/25/2019 1 2:14 PM INDUSTRIAL CLEANING TECHNICIAN XR CHEST PA LATERAL 2 VIEWS IP Routine 04/25/2019 11:58 AM INDUSTRIAL CLEANING TECHNICIAN POCT GLUCOSE DEVICE Routine 04/25/2019 1 1:21 AM INDUSTRIAL CLEANING TECHNICIAN POCT GLUCOSE DEVICE Routine 04/25/2019 1 0:33 AM INDUSTRIAL CLEANING TECHNICIAN POCT GLUCOSE DEVICE Routine 04/25/2019 9 :37 AM INDUSTRIAL CLEANING TECHNICIAN POCT GLUCOSE DEVICE Routine 04/25/2019 8 :37 AM INDUSTRIAL CLEANING TECHNICIAN EGFR Timed 04/25/2019 8:09 AM INDUSTRIAL CLEANING TECHNICIAN CRP (ACUTE PHASE) Add-On 04/25/2019 8:0 9 AM INDUSTRIAL CLEANING TECHNICIAN PHOSPHORUS Timed 04/25/2019 8:09 AM INDUSTRIAL CLEANING TECHNICIAN MAGNESIUM Timed 04/25/2019 8:09 AM INDUSTRIAL CLEANING TECHNICIAN BASIC METABOLIC PANEL Timed 04/25/2019 8:09 AM INDUSTRIAL CLEANING TECHNICIAN POCT GLUCOSE DEVICE Routine 04/25/2019 7 :31 AM INDUSTRIAL CLEANING TECHNICIAN POCT GLUCOSE DEVICE Routine 04/25/2019 6 :28 AM INDUSTRIAL CLEANING TECHNICIAN POCT GLUCOSE DEVICE Routine 04/25/2019 5 :47 AM INDUSTRIAL CLEANING TECHNICIAN EGFR Timed 04/25/2019 4:31 AM INDUSTRIAL CLEANING TECHNICIAN DIFFERENTIAL AUTO Routine 04/25/2019 4:3 1 AM INDUSTRIAL CLEANING TECHNICIAN CBC WITH AUTO DIFFERENTIAL Routine 04/25/2019 4:31 AM INDUSTRIAL CLEANING TECHNICIAN PHOSPHORUS Timed 04/25/2019 4:31 AM INDUSTRIAL CLEANING TECHNICIAN MAGNESIUM Timed 04/25/2019 4:31 AM INDUSTRIAL CLEANING TECHNICIAN BASIC METABOLIC PANEL Timed 04/25/2019 4:31 AM INDUSTRIAL CLEANING TECHNICIAN POCT GLUCOSE DEVICE Routine 04/25/2019 4 :30 AM INDUSTRIAL CLEANING TECHNICIAN POCT GLUCOSE DEVICE Routine 04/25/2019 3 :47 AM INDUSTRIAL CLEANING TECHNICIAN POCT GLUCOSE DEVICE Routine 04/25/2019 2 :37 AM INDUSTRIAL CLEANING TECHNICIAN POCT GLUCOSE DEVICE Routine 04/25/2019 1 :39 AM INDUSTRIAL CLEANING TECHNICIAN LACTATE Routine 04/25/2019 12:50 AM INDUSTRIAL CLEANING TECHNICIAN BETA-HYDROXYBUTYRATE Routine 04/25/2019 12:50 AM INDUSTRIAL CLEANING TECHNICIAN POCT GLUCOSE DEVICE Routine 04/25/2019 1 2:38 AM INDUSTRIAL CLEANING TECHNICIAN EGFR Timed 04/25/2019 12:04 AM INDUSTRIAL CLEANING TECHNICIAN PHOSPHORUS Timed 04/25/2019 12:04 AM INDUSTRIAL CLEANING TECHNICIAN MAGNESIUM Timed 04/25/2019 12:04 AM INDUSTRIAL CLEANING TECHNICIAN BASIC METABOLIC PANEL Timed 04/25/2019 12:04 AM INDUSTRIAL CLEANING TECHNICIAN POCT GLUCOSE DEVICE Routine 04/24/2019 1 1:41 PM INDUSTRIAL CLEANING TECHNICIAN POCT GLUCOSE DEVICE Routine 04/24/2019 1 0:45 PM INDUSTRIAL CLEANING TECHNICIAN POCT GLUCOSE DEVICE Routine 04/24/2019 9 :37 PM INDUSTRIAL CLEANING TECHNICIAN HI CRITICAL CARE ILL/INJURED PATIENT INIT 30-74 MIN Routine 04/24/2019 9:34 PM INDUSTRIAL CLEANING TECHNICIAN EGFR STAT 04/24/2019 8:27 PM INDUSTRIAL CLEANING TECHNICIAN CBC WITH AUTO DIFFERENTIAL STAT 04/24/2019 8:27 PM INDUSTRIAL CLEANING TECHNICIAN MANUAL DIFFERENTIAL STAT 04/24/2019 8 :27 PM INDUSTRIAL CLEANING TECHNICIAN MONONUCLEOSIS SCREEN Routine 04/24/2019 8:27 PM INDUSTRIAL CLEANING TECHNICIAN HCG, BLOOD, QUANTITATIVE STAT 04/24/2019 8:27 PM INDUSTRIAL CLEANING TECHNICIAN LIPASE STAT 04/24/2019 8:27 PM INDUSTRIAL CLEANING TECHNICIAN COMPREHENSIVE METABOLIC PANEL STAT 04/24/2019 8:27 PM INDUSTRIAL CLEANING TECHNICIAN POCT GLUCOSE DEVICE Routine 04/24/2019 8 :05 PM INDUSTRIAL CLEANING TECHNICIAN INFLUENZA A/B AND RSV PCR STAT 04/24/2019 8:01 PM INDUSTRIAL CLEANING TECHNICIAN documented in this encounter Results * Drug Screen, Urine L and D with Reflex Confirmation (04/25/2019 12:56 PM INDUSTRIAL CLEANING TECHNICIAN) Amphetamine, ur Not Detected CutOff 500ng/mL [facility] [...] 2018. Oxycodone, ur Not Detected CutOff 100ng/mL [facility] ([place]) Comment: Interpretive Data - Oxycodone: ??Samples containing greater than 100 ng/mL oxycodone or other cross-reacting compounds are reported as positive. ??False positive and false negative results are possible. ?? Current Interpretive Data was last reviewed 2018. Phencyclidine, ur Not Detected CutOff 25 ng/mL [facility] ([place]) Comment: Interpretive Data - Phencyclidine: ??Samples containing greater than 25 ng/mL phencyclidine or other cross-reacting compounds are reported as positive. ??False positive and false negative results are possible. ?? Current Interpretive Data was last reviewed 2018. Urine Creatinine 26 mg/dL [facility] ([place]) Comment: Interpretive Data Urine Creatinine: < 10 mg/dL is extremely dilute = or > 10 but < 20 mg/dL is dilute = or > 20 mg/dL is normal Current Interpretive Data was last revised on 2017. Urine 04/25/2019 12:5 6 PM INDUSTRIAL CLEANING TECHNICIAN 04/25/2019 1:04 PM INDUSTRIAL CLEANING TECHNICIAN Narrative [facility]) - 04/25/2019 1:46 PM INDUSTRIAL CLEANING TECHNICIAN Drug of Abuse screening is performed by immunoassay for medical purposes only. ??This is not to be used for Pain Management purposes. ??If Detected, confirmation testing will be performed for Amphetamines, Barbiturates, Benzodiazepines, Cannabinoids, Cocaine, Methadone, Opiates, Oxycodone or Phencyclidine. Jhonatan Rey MD LAB URINE ORDERABL ES Final Result [facility] ([place]) [facility] [place] [address] * (ABNORMAL) Urinalysis reflex to microscopic and culture Urine (04/25/2019 12:56 PM INDUSTRIAL CLEANING TECHNICIAN) Color, ur Yellow Yellow [facility]) Clarity, ur Clear Clear [facility] ([place]) Specific gravity, ur 1.003(L) 1.010 - 1.025 [facility]) pH, urine 6.5 [facility]) Protein, ur ql Negative Negative [facility]) Glucose, ur ql Negative Negative [facility]) Ketones, ur 1+(A) Negative [facility] ([place]) Bilirubin, ur Negative Negative [facility]) Blood, ur Negative Negative [facility]) Urobilinogen, ur 0.2 mg/dL [facility]) Nitrite, ur Negative Negative [facility] ([place]) Leukocyte esterase, ur Negative Negative [facility]) UA reflex comment Reflex conditions for microscopic UA and culture not met. [facility]) Urine 04/25/2019 12:5 6 PM INDUSTRIAL CLEANING TECHNICIAN 04/25/2019 1:04 PM INDUSTRIAL CLEANING TECHNICIAN Narrative [facility]) - 04/25/2019 1:10 PM INDUSTRIAL CLEANING TECHNICIAN ?? Urine pH is affected by diet, medications, systemic acid-base disturbances, and renal tubular function. ??pH may affect urinary stone formation. ??For example, urine pH below 6.0 may help reduce the tendency for calcium phosphate stones and pH greater than 6.0 may reduce the tendency for uric acid stone formation. Source: [facility] [employer]. Last revised 05-13-2017 us Tavo Ochoa MD LAB MICROBIOLOGY - GENE RAL ORDERABLES Final Result Performing Organization Address City/[facility]/ZIP Co de Phone Number [facility] ([place]) 1 [facility] [place] [address] * (ABNORMAL) POCT glucose (04/25/2019 12:14 PM INDUSTRIAL CLEANING TECHNICIAN) Glucose, POC 114(H) 71 - 98 mg/dL [facility] ([place]) Blood specimen (specimen) 04/25/2019 12:14 PM INDUSTRIAL CLEANING TECHNICIAN 04/25/2019 12:14 PM INDUSTRIAL CLEANING TECHNICIAN Jhonatan Rey MD LAB POCT ORDERABLE S - DEVICE Final Result Performing Organization Address [facility] Co de Phone Number [facility] ([place]) [address] [facility] [place] [address] * XR Chest Pa Lateral 2 Views (04/25/2019 11:58 AM INDUSTRIAL CLEANING TECHNICIAN) Anatomical Region Laterality Modality Body, Chest N/A Computed Radiogr aphy 04/25/2019 12:2 2 PM INDUSTRIAL CLEANING TECHNICIAN Impressions 04/25/2019 12:22 PM INDUSTRIAL CLEANING TECHNICIAN 1. No active disease. Electronically signed by: Chico Hutchins Jr., M.D. Narrative 04/25/2019 12:22 PM INDUSTRIAL CLEANING TECHNICIAN XR CHEST PA LATERAL 2 VIEWS HISTORY: pneumonia. COMPARISON: Portable chest on 02/14/2018. VIEWS: Erect PA and lateral views FINDINGS: Heart size is normal. ??Pulmonary vascularity is normal . Thoracic aorta is not dilated. No infiltrate, mass or pleural effusion is seen. Bony structures are unremarkable. ??payment analyst wires overlie the chest. Procedure Note Chico Hutchins Jr., MD - 04/25/2019 XR CHEST PA LATERAL 2 VIEWS HISTORY: pneumonia. COMPARISON: Portable chest on 02/14/2018. VIEWS: Erect PA and lateral views FINDINGS: Heart size is normal. Pulmonary vascularity is normal . Thoracic aorta is not dilated. No infiltrate, mass or pleural effusion is seen. Bony structures are unremarkable. payment analyst wires overlie the chest. IMPRESSION: 1. No active disease. Electronically signed by: Ch[place] Hutchins Jr., M.D. Jhonatan Rey MD IMG XR PROCEDURES Final Result * (ABNORMAL) POCT glucose (04/25/2019 11:21 AM INDUSTRIAL CLEANING TECHNICIAN) Glucose, POC 101(H) 71 - 98 mg/dL [facility] ([place]) Blood specimen (specimen) 04/25/2019 11:21 AM INDUSTRIAL CLEANING TECHNICIAN 04/25/2019 11:21 AM INDUSTRIAL CLEANING TECHNICIAN Jhonatan Rey MD LAB POCT ORDERABLE S - DEVICE Final Result Performing Organization Address City/[facility]/ZIP Co de Phone Number [facility] ([place]) 1 [facility] [place] [address] * (ABNORMAL) POCT glucose (04/25/2019 10:33 AM INDUSTRIAL CLEANING TECHNICIAN) Glucose, POC 99(H) 71 - 98 mg/dL [facility] ([place] Blood specimen (specimen) 04/25/2019 10:33 AM INDUSTRIAL CLEANING TECHNICIAN 04/25/2019 10:33 AM INDUSTRIAL CLEANING TECHNICIAN Jhonatan Rey MD LAB POCT ORDERABLE S - DEVICE Final Result [facility] ([place]) 1 [facility] [place] [address] * POCT glucose (04/25/2019 9:37 AM INDUSTRIAL CLEANING TECHNICIAN) Glucose, POC 95 71 - 98 mg/dL [facility] ([place]) Blood specimen (specimen) 04/25/2019 9:37 AM INDUSTRIAL CLEANING TECHNICIAN 04/25/2019 9:37 AM INDUSTRIAL CLEANING TECHNICIAN Jhonatan Rey MD LAB POCT ORDERABLE S - DEVICE Final Result Performing Organization Address [facility]/ZIP Co de Phone Number [facility] ([place]) 1 [facility] [employer] [place] [address] * POCT glucose (04/25/2019 8:37 AM INDUSTRIAL CLEANING TECHNICIAN) Glucose, POC 90 71 - 98 mg/dL [facility] ([place]) Blood specimen (specimen) 04/25/2019 8:37 AM INDUSTRIAL CLEANING TECHNICIAN 04/25/2019 8:37 AM INDUSTRIAL CLEANING TECHNICIAN Jhonatan Rey MD LAB POCT ORDERABLE S - DEVICE Final Result Performing Organization Address [facility] Co de Phone Number [facility] ([place]) [address] [facility] [place] [address] * CRP (acute phase) (04/25/2019 8:09 AM INDUSTRIAL CLEANING TECHNICIAN) Pathologist [facility] CRP 2.0 <=10.0 mg/L TOMY Frost ([place]) Blood specimen (specimen) 04/25/2019 8:09 AM INDUSTRIAL CLEANING TECHNICIAN 04/25/2019 10:30 AM INDUSTRIAL CLEANING TECHNICIAN Jhonatan Rey MD LAB BLOOD ORDERABL ES Final Result Performing Organization Address [facility] Co de Phone Number [facility] ([place]) 1 [facility] [employer] [place] [address] * eGFR (04/25/2019 8:09 AM INDUSTRIAL CLEANING TECHNICIAN) eGFR 153 mL/min/1.7 3 m2 [facility] ([place]) Comment: Interpretive Data Reference Interval Normal ?>/= 90 mL/min/1.73m2 Mildly decreased* ? 60 - 89 mL/min/1.73m2 Mildly to moderately decreased ?45 - 59 mL/min/1.73m2 Moderately to severely decreased ??30 - 44 mL/min/1.73m2 Severely decreased ?15 - 29 mL/min/1.73m2 Kidney Failure ?< 15 ??mL/min/1.73m2 *Relative to young adult level If -Georgian multiply value by 1.16. Estimated glomerular filtration [...] last reviewed 2015. Blood specimen (specimen) 04/25/2019 8:09 AM INDUSTRIAL CLEANING TECHNICIAN 04/25/2019 8:18 AM INDUSTRIAL CLEANING TECHNICIAN Gio Sewell MD LAB BLOOD ORDERABLES Final Re sult Performing Organization Address City/[facility]/ZIP Co de Phone Number A[facility]LEYTOSHA SAHU ([place]) 1 [facility] [employer] [place] [address] * Phosphorus (04/25/2019 8:09 AM INDUSTRIAL CLEANING TECHNICIAN) Phosphorus, pl 3.2 2.3 - 4.5 mg/dL [facility] ([place]) Blood specimen (specimen) 04/25/2019 8:09 AM INDUSTRIAL CLEANING TECHNICIAN 04/25/2019 8:18 AM INDUSTRIAL CLEANING TECHNICIAN Gio Sewell MD LAB BLOOD ORDERABLES Final Re sult Performing Organization Address City/[facility]/ZIP Co de Phone Number TOMY [facility] ([place]) [address] [facility] [place] [address] * Magnesium (04/25/2019 8:09 AM INDUSTRIAL CLEANING TECHNICIAN) Magnesium 2.0 1.6 - 2.4 mg/dL [facility] ([place]) Blood specimen (specimen) 04/25/2019 8:09 AM INDUSTRIAL CLEANING TECHNICIAN 04/25/2019 8:18 AM INDUSTRIAL CLEANING TECHNICIAN us Gio Sewell MD LAB BLOOD ORDERABLES Final Re sult [facility] ([place]) 1 [facility] [place] [address] * (ABNORMAL) Basic metabolic panel (04/25/2019 8:09 AM INDUSTRIAL CLEANING TECHNICIAN) Sodium 134(L) 135 - 145 mmol/L [facility] ([place]) Potassium, pl 3.6 3.3 - 4.9 mmol/L [facility] ([place]) Chloride 99 97 - 110 mmol/L [facility] ([place]) CO2 22 22 - 32 mmol/L [facility] ([place]) Anion gap 13 2 - 15 mmol/L [facility] ([place]) BUN 9 8 - 25 mg/dL [facility] Creatinine 0.36(L) 0.60 - 1.10 mg/dL [facility] ([place]) Glucose 120 70 - 199 mg/dL [facility] ([place]) Comment: Interpretive Data Fasting [...] mg/dL [facility] ([place]) Blood specimen (specimen) 04/25/2019 8:09 AM INDUSTRIAL CLEANING TECHNICIAN 04/25/2019 8:18 AM INDUSTRIAL CLEANING TECHNICIAN Gio Sewell MD LAB BLOOD ORDERABLES Final Re sult Performing Organization Address [facility] Co de Phone Number TOMY [facility] ([place]) 1 [facility] [employer] [place] [address] * (ABNORMAL) POCT glucose (04/25/2019 7:31 AM INDUSTRIAL CLEANING TECHNICIAN) Glucose, POC 122(H) 71 - 98 mg/dL [facility] ([place]) Blood specimen (specimen) 04/25/2019 7:31 AM INDUSTRIAL CLEANING TECHNICIAN 04/25/2019 7:31 AM INDUSTRIAL CLEANING TECHNICIAN Jhonatan Rey MD LAB POCT ORDERABLE S - DEVICE Final Result Performing Organization Address [facility] de Phone Number TOMY [facility] ([place]) 1 [facility] [employer] [place] [address] * (ABNORMAL) POCT glucose (04/25/2019 6:28 AM INDUSTRIAL CLEANING TECHNICIAN) Glucose, POC 154(H) 71 - 98 mg/dL [facility] ([place]) Blood specimen (specimen) 04/25/2019 6:28 AM INDUSTRIAL CLEANING TECHNICIAN 04/25/2019 6:28 AM INDUSTRIAL CLEANING TECHNICIAN Jhonatan Rey MD LAB POCT ORDERABLE S - DEVICE Final Result Performing Organization Address [facility] Co de Phone Number TOMY [facility] ([place]) 1 [facility] [employer] [place] [address] * (ABNORMAL) POCT glucose (04/25/2019 5:47 AM INDUSTRIAL CLEANING TECHNICIAN) Glucose, POC 209(H) 71 - 98 mg/dL [facility] ([place]) Blood specimen (specimen) 04/25/2019 5:47 AM INDUSTRIAL CLEANING TECHNICIAN 04/25/2019 5:47 AM INDUSTRIAL CLEANING TECHNICIAN Gio Sewell MD LAB POCT ORDERABLES - DEVICE Final Result Performing Organization Address City/[facility]/ZIP Co de Phone Number TOMY [facility] ([place]) 1 [facility] [place] [address] * eGFR (04/25/2019 4:31 AM INDUSTRIAL CLEANING TECHNICIAN) [facility] eGFR 158 mL/min/1.7 3 m2 [facility] ([place]) Comment: Interpretive Data Reference Interval Normal ?>/= 90 mL/min/1.73m2 Mildly decreased* ? 60 - 89 mL/min/1.73m2 Mildly to moderately decreased ?45 - 59 mL/min/1.73m2 Moderately to severely decreased ??30 - 44 mL/min/1.73m2 Severely decreased ?15 - 29 mL/min/1.73m2 Kidney Failure ?< 15 ??mL/min/1.73m2 *Relative to young adult level If -Georgian multiply value by 1.16. Estimated glomerular filtration [...] last reviewed 2015. Blood specimen (specimen) 04/25/2019 4:31 AM INDUSTRIAL CLEANING TECHNICIAN 04/25/2019 4:48 AM INDUSTRIAL CLEANING TECHNICIAN us Gio Sewell MD LAB BLOOD ORDERABLES Final Re sult [facility] ([place]) 1 [facility] [place] [address] * (ABNORMAL) Differential, auto (04/25/2019 4:31 AM INDUSTRIAL CLEANING TECHNICIAN) Neutrophil abs 9.9(H) 1.7 - 6.5 K/cumm [facility] ([place]) Imm gran abs 0.0 0.0 - 0.1 K/cumm [facility] ([place]) Lymphocyte abs 1.1 0.8 - 3.3 K/cumm [facility] ([place]) Monocyte abs 0.2 0.2 - 0.8 K/cumm [facility] ([place]) Eosinophil abs 0.0 0.0 - 0.5 K/cumm [facility] ([place]) Basophil abs 0.0 0.0 - 0.1 K/cumm [facility] ([place]) Neutrophil pct 87.9 % [facility] ([place]) Comment: Interpretive [...] was last revised on 2017. Lymphocyte pct 9.5 % [facility] ([place]) Comment: Interpretive [...] revised on 2017. Blood specimen (specimen) 04/25/2019 4:31 AM INDUSTRIAL CLEANING TECHNICIAN 04/25/2019 4:48 AM INDUSTRIAL CLEANING TECHNICIAN Tavo Ochoa MD LAB BLOOD ORDERABLES Fi nal Result Performing Organization Address [facility]/ZIP Co de Phone Number TOMY [facility] ([place]) [address] [facility] [place] [address] * (ABNORMAL) Phosphorus (04/25/2019 4:31 AM INDUSTRIAL CLEANING TECHNICIAN) Pathologist [facility] Phosphorus, pl 2.1(L) 2.3 - 4.5 mg/dL [facility] ([place]) Blood specimen (specimen) 04/25/2019 4:31 AM INDUSTRIAL CLEANING TECHNICIAN 04/25/2019 4:48 AM INDUSTRIAL CLEANING TECHNICIAN Gio Sewell MD LAB BLOOD ORDERABLES Final Re sult Performing Organization Address [facility] Co de Phone Number TOMY [facility] ([place]) [address] [facility] [place] [address] * Magnesium (04/25/2019 4:31 AM INDUSTRIAL CLEANING TECHNICIAN) [facility] Magnesium 2.0 1.6 - 2.4 mg/dL [facility] ([place]) Blood specimen (specimen) 04/25/2019 4:31 AM INDUSTRIAL CLEANING TECHNICIAN 04/25/2019 4:48 AM INDUSTRIAL CLEANING TECHNICIAN Gio Sewell MD LAB BLOOD ORDERABLES Final Re sult Performing Organization Address [facility] Co de Phone Number TOMY [facility] ([place]) [address] [facility] [place] [address] * (ABNORMAL) Basic metabolic panel (04/25/2019 4:31 AM INDUSTRIAL CLEANING TECHNICIAN) Sodium 132(L) 135 - 145 mmol/L [facility] ([place] Potassium, pl 3.6 3.3 - 4.9 mmol/L [facility] ([place]) Chloride 100 97 - 110 mmol/L [facility] ([place]) CO2 18(L) 22 - 32 mmol/L [facility] ([place]) Anion gap 15 2 - 15 mmol/L [facility] ([place]) BUN 12 8 - 25 mg/dL [facility] ([place]) Creatinine 0.33(L) 0.60 - 1.10 mg/dL [facility] ([place]) Glucose 133 70 - 199 mg/dL [facility] ([place]) Comment: Interpretive Data Fasting [...] 2017. Calcium 9.0 8.5 - 10.3 mg/dL [facility] ([place]) Blood specimen (specimen) 04/25/2019 4:31 AM INDUSTRIAL CLEANING TECHNICIAN 04/25/2019 4:48 AM INDUSTRIAL CLEANING TECHNICIAN us iGo Sewell MD LAB BLOOD ORDERABLES Final Re sult [facility] ([place]) 1 [facility] [place] [address] * (ABNORMAL) CBC with auto differential (04/25/2019 4:31 AM INDUSTRIAL CLEANING TECHNICIAN) WBC 11.2(H) 3.8 - 9.9 K/cumm [facility] ([place]) Hgb 14.0 11.9 - 15.5 g/dL [facility] ([place]) Hct 41.1 35.6 - 45.5 % [facility] ([place]) Plt 398 150 - 400 K/cumm [facility] ([place]) MPV 9.2 9.1 - 12.3 fL [facility] ([place] RBC 4.82 3.90 - 5.20 M/cumm [facility] ([place]) MCV 85.3 81.3 - 96.4 fL [facility] ([place]) MCH 29.0 27.1 - 33.3 pg [facility] ([place]) MCHC 34.1 32.3 - 35.7 g/dL [facility] ([place]) RDW CV 13.6 11.1 - 14.9 % [facility] ([place]) RDW SD 42.3 35.7 - 48.1 fL [facility] ([place]) NRBC abs 0.00 0.00 - 0.01 K/cumm [facility] ([place]) Blood specimen (specimen) 04/25/2019 4:31 AM INDUSTRIAL CLEANING TECHNICIAN 04/25/2019 4:48 AM INDUSTRIAL CLEANING TECHNICIAN Gio Sewell MD LAB BLOOD ORDERABLES Final Re sult Performing Organization Address City/[facility]/ZIP Co de Phone Number TOMY [facility] ([place]) [address] [facility] [employer] [place] [address] * (ABNORMAL) POCT glucose (04/25/2019 4:30 AM INDUSTRIAL CLEANING TECHNICIAN) Glucose, POC 117(H) 71 - 98 mg/dL [facility] ([place]) Blood specimen (specimen) 04/25/2019 4:30 AM INDUSTRIAL CLEANING TECHNICIAN 04/25/2019 4:30 AM INDUSTRIAL CLEANING TECHNICIAN Gio Sewell MD LAB POCT ORDERABLES - DEVICE Final Result Performing Organization Address City/[facility]/ZIP Co de Phone Number TOMY [facility] ([place]) [address] [facility] [employer] [place] [address] * (ABNORMAL) POCT glucose (04/25/2019 3:47 AM INDUSTRIAL CLEANING TECHNICIAN) Glucose, POC 125(H) 71 - 98 mg/dL [facility] ([place]) Blood specimen (specimen) 04/25/2019 3:47 AM INDUSTRIAL CLEANING TECHNICIAN 04/25/2019 3:47 AM INDUSTRIAL CLEANING TECHNICIAN Gio Sewell MD LAB POCT ORDERABLES - DEVICE Final Result [facility] ([place]) 1 [facility] [employer] [place] [address] * (ABNORMAL) POCT glucose (04/25/2019 2:37 AM INDUSTRIAL CLEANING TECHNICIAN) Glucose, POC 111(H) 71 - 98 mg/dL [facility] ([place]) Blood specimen (specimen) 04/25/2019 2:37 AM INDUSTRIAL CLEANING TECHNICIAN 04/25/2019 2:37 AM INDUSTRIAL CLEANING TECHNICIAN Gio Sewell MD LAB POCT ORDERABLES - DEVICE Final Result [facility] ([place]) 1 [place] [address] * (ABNORMAL) POCT glucose (04/25/2019 1:39 AM INDUSTRIAL CLEANING TECHNICIAN) Glucose, POC 164(H) 71 - 98 mg/dL [facility] ([place]) Blood specimen (specimen) 04/25/2019 1:39 AM INDUSTRIAL CLEANING TECHNICIAN 04/25/2019 1:39 AM INDUSTRIAL CLEANING TECHNICIAN Gio Sewell MD LAB POCT ORDERABLES - DEVICE Final Result Performing Organization Address [facility]/ZIP Co de Phone Number TOMY [facility] ([place]) 1 [facility] [employer] [place] [address] * Lactate (04/25/2019 12:50 AM INDUSTRIAL CLEANING TECHNICIAN) Lactate 1.3 0.7 - 2.0 mmol/L [facility] ([place]) Blood specimen (specimen) 04/25/2019 12:50 AM INDUSTRIAL CLEANING TECHNICIAN 04/25/2019 12:52 AM INDUSTRIAL CLEANING TECHNICIAN Gio Sewell MD LAB BLOOD ORDERABLES Final Re sult [facility] ([place]) 1 [facility] [employer] [place] [address] * Beta-hydroxybutyrate (04/25/2019 12:50 AM INDUSTRIAL CLEANING TECHNICIAN) Pathologist [facility] Beta-Hydroxybut yrate 0.4 <=0.5 mmol/L [facility] ([place]) Comment:Testing performed by : [facility], [address] [place] [address], [place]., [address] Blood specimen (specimen) 04/25/2019 12:50 AM INDUSTRIAL CLEANING TECHNICIAN 04/25/2019 9:23 AM INDUSTRIAL CLEANING TECHNICIAN Gio Sewell MD LAB BLOOD ORDERABLES Final Re sult Performing Organization Address [facility]/ZIP Co de Phone Number TOMY [facility] ([place]) 1 [facility] [employer] [place] [address] * (ABNORMAL) POCT glucose (04/25/2019 12:38 AM INDUSTRIAL CLEANING TECHNICIAN) [facility] Glucose, POC 162(H) 71 - 98 mg/dL [facility] ([place]) Blood specimen (specimen) 04/25/2019 12:38 AM INDUSTRIAL CLEANING TECHNICIAN 04/25/2019 12:38 AM INDUSTRIAL CLEANING TECHNICIAN Gio Sewell MD LAB POCT ORDERABLES - DEVICE Final Result Performing Organization Address [facility] Co de Phone Number TOMY [facility] ([place]) [address] [facility] [place] [address] * eGFR (04/25/2019 12:04 AM INDUSTRIAL CLEANING TECHNICIAN) Pathologist [facility] eGFR 153 mL/min/1.7 3 m2 [facility] ([place]) Comment: Interpretive Data Reference Interval Normal ?>/= 90 mL/min/1.73m2 Mildly decreased* ? 60 - 89 mL/min/1.73m2 Mildly to moderately decreased ?45 - 59 mL/min/1.73m2 Moderately to severely decreased ??30 - 44 mL/min/1.73m2 Severely decreased ?15 - 29 mL/min/1.73m2 Kidney Failure ?< 15 ??mL/min/1.73m2 *Relative to young adult level If -Georgian multiply value by 1.16. Estimated glomerular filtration [...] last reviewed 2015. Blood specimen (specimen) 04/25/2019 12:04 AM INDUSTRIAL CLEANING TECHNICIAN 04/25/2019 12:06 AM INDUSTRIAL CLEANING TECHNICIAN Gio Sewell MD LAB BLOOD ORDERABLES Final Re sult Performing Organization Address City/[facility]/ZIP Co de Phone Number TOMY [facility] ([place]) [address] [facility] [place] [address] * (ABNORMAL) Phosphorus (04/25/2019 12:04 AM INDUSTRIAL CLEANING TECHNICIAN) Phosphorus, pl 1.4(L) 2.3 - 4.5 mg/dL [facility] ([place]) Blood specimen (specimen) 04/25/2019 12:04 AM INDUSTRIAL CLEANING TECHNICIAN 04/25/2019 12:06 AM INDUSTRIAL CLEANING TECHNICIAN Gio Sewell MD LAB BLOOD ORDERABLES Final Re sult [facility] ([place]) [address] [facility] [employer] [place] [address] * (ABNORMAL) Magnesium (04/25/2019 12:04 AM INDUSTRIAL CLEANING TECHNICIAN) Magnesium 1.4(L) 1.6 - 2.4 mg/dL [facility] ([place]) Blood specimen (specimen) 04/25/2019 12:04 AM INDUSTRIAL CLEANING TECHNICIAN 04/25/2019 12:06 AM INDUSTRIAL CLEANING TECHNICIAN Gio Sewell MD LAB BLOOD ORDERABLES Final Re sult Performing Organization Address City/[facility]/ZIP Co de Phone Number TOMY [facility] ([place]) 1 [facility] [employer] [place] [address] * (ABNORMAL) Basic metabolic panel (04/25/2019 12:04 AM INDUSTRIAL CLEANING TECHNICIAN) Sodium 134(L) 135 - 145 mmol/L [facility] ([place]) Potassium, pl 3.6 3.3 - 4.9 mmol/L [facility] ([place]) Chloride 97 97 - 110 mmol/L [facility] ([place]) CO2 18(L) 22 - 32 mmol/L [facility] ([place]) Anion gap 19(H) 2 - 15 mmol/L [facility] ([place]) BUN 13 8 - 25 mg/dL [facility] ([place]) Creatinine 0.36(L) 0.60 - 1.10 mg/dL [facility] ([place]) Glucose 217(H) 70 - 199 mg/dL [facility] ([place]) [...] mg/dL [facility] ([place]) Blood specimen (specimen) 04/25/2019 12:04 AM INDUSTRIAL CLEANING TECHNICIAN 04/25/2019 12:06 AM INDUSTRIAL CLEANING TECHNICIAN Gio Sewell MD LAB BLOOD ORDERABLES Final Re sult Performing Organization Address City/[facility]/ZIP Co de Phone Number TOMY SA[facility] ([place]) 1 [facility] [employer] [place] [address] * (ABNORMAL) POCT glucose (04/24/2019 11:41 PM INDUSTRIAL CLEANING TECHNICIAN) Glucose, POC 198(H) 71 - 98 mg/dL [facility] ([place]) Blood specimen (specimen) 04/24/2019 11:41 PM INDUSTRIAL CLEANING TECHNICIAN 04/24/2019 11:41 PM INDUSTRIAL CLEANING TECHNICIAN us Gio Sewell MD LAB POCT ORDERABLES - DEVICE Final Result TOMY [facility] ([place]) 1 [facility] [employer] [place] [address] * (ABNORMAL) POCT glucose (04/24/2019 10:45 PM INDUSTRIAL CLEANING TECHNICIAN) Glucose, POC 174(H) 71 - 98 mg/dL [facility]OM[facility] SA[facility] ([place]) Blood specimen (specimen) 04/24/2019 10:45 PM INDUSTRIAL CLEANING TECHNICIAN 04/24/2019 10:45 PM INDUSTRIAL CLEANING TECHNICIAN us Gio Sewell MD LAB POCT ORDERABLES - DEVICE Final Result Performing Organization Address City/[facility]/ZIP Co de Phone Number TOMY SAHU ([place]) [address] [facility] [address] * (ABNORMAL) POCT glucose (04/24/2019 9:37 PM INDUSTRIAL CLEANING TECHNICIAN) Glucose, POC 244(H) 71 - 98 mg/dL [facility] ([place]) Blood specimen (specimen) 04/24/2019 9:37 PM INDUSTRIAL CLEANING TECHNICIAN 04/24/2019 9:37 PM INDUSTRIAL CLEANING TECHNICIAN us Tavo Ochoa MD LAB POCT ORDERABLES - D EVICE Final Result TOMY [facility] ([place]) [address] [facility] [place] [address] * HI CRITICAL CARE ILL/INJURED PATIENT INIT 30-74 MIN (04/24/2019 9:34 PM INDUSTRIAL CLEANING TECHNICIAN) Narrative Tavo Ochoa MD - 04/24/2019 9:34 PM INDUSTRIAL CLEANING TECHNICIAN Tavo Ochoa MD ? 04/24/2019 ??9:36 PM Critical Care Performed by: Tavo Ochoa MD Authorized by: Tavo Ochoa MD Critical care provider statement: As reflected in the history, physical exam, orders, notes, and/or MDM, I was personally present while the patient was critically ill and provided critical care services for approximately 30 minutes, excluding time involved in separately billable procedures. ??Critical care was necessary to treat or prevent imminent or life-threatening deterioration of the following condition(s): ?? unstable vital signs ?? acid-base disturbance, diabetic ketoacidosis and lactic acidosis ??Critical care was time spent by me providing the following: ? continuous telemetry, serial bedside patient exams, serial laboratory checks and resuscitation with fluids ?? active monitoring of intake/output status and glycemic control ?? I provided emergent necessary critical care medicine services to this patient. I ordered and reviewed test results and/or imaging studies. I spent time discussing the management and therapeutic options for this critically ill patient with the patient themselves or with the appropriate designated surrogate decision-maker. I spent time documenting in the medical record. I admitted this patient to an Intensive Care unit (ICU) and discussed management with the admitting team. us Tavo Ochoa MD IN CLINIC/BEDSIDE ORDER RULA Final Result * Mononucleosis screen (04/24/2019 8:27 PM INDUSTRIAL CLEANING TECHNICIAN) Pathologist [facility] Hardeman Screen Negative Negative TOMY CARABALLO ([place]) Blood specimen (specimen) 04/24/2019 8:27 PM INDUSTRIAL CLEANING TECHNICIAN 04/25/2019 1:46 AM INDUSTRIAL CLEANING TECHNICIAN us Gio Sewell MD LAB BLOOD ORDERABLES Final Re sult TOMY [facility] ([place]) 1 [facility] [place] [address] * (ABNORMAL) Manual Differential (04/24/2019 8:27 PM INDUSTRIAL CLEANING TECHNICIAN) Pathologist [facility] Differential Manual TOMY SAHU ([place]) Cells Counted 100 [facility] ([place]) Neutrophil abs 4.7 1.7 - 6.5 K/cumm [facility] ([place]) Lymphocyte abs 1.3 0.8 - 3.3 K/cumm [facility] ([place]) Monocyte abs 0.1(L) 0.2 - 0.8 K/cumm [facility] ([place]) Neutrophil pct 74.0 % [facility] ([place]) Comment: Interpretive Data Percent cell count reference ranges are not reported, since discordance with absolute values may lead to misinterpretation of CBC data. Current Interpretive Data was last revised on 2017. Lymphocyte pct 21.0 % [facility] ([place]) Comment: Interpretive Data Percent cell count reference ranges are not reported, since discordance with absolute values may lead to misinterpretation of CBC data. Current Interpretive Data was last revised on 2017. Monocyte pct 1.0 % [facility] ([place]) Comment: Interpretive Data Percent cell count reference ranges are not reported, since discordance with absolute values may lead to misinterpretation of CBC data. Current Interpretive Data was last revised on 2017. Band Neutrophil pct 4.0 0.0 - 5.0 % [facility] ([place]) RBC morphology Consistent with RBC Indicies [facility] ([place]) Platelet estimate Adequate CE [facility] ([place]) Blood specimen (specimen) 04/24/2019 8:27 PM INDUSTRIAL CLEANING TECHNICIAN 04/24/2019 8:30 PM INDUSTRIAL CLEANING TECHNICIAN us Tavo Ochoa MD LAB BLOOD ORDERABLES Fi nal Result [facility] ([place]) 1 [facility] [place] [address] * eGFR (04/24/2019 8:27 PM INDUSTRIAL CLEANING TECHNICIAN) [facility] eGFR 142 mL/min/1.7 3 m2 [facility] ([place]) Comment: Interpretive Data Reference Interval Normal ?>/= 90 mL/min/1.73m2 Mildly decreased* ? 60 - 89 mL/min/1.73m2 Mildly to moderately decreased ?45 - 59 mL/min/1.73m2 Moderately to severely decreased ??30 - 44 mL/min/1.73m2 Severely decreased ?15 - 29 mL/min/1.73m2 Kidney Failure ?< 15 ??mL/min/1.73m2 *Relative to young adult level If -Georgian multiply value by 1.16. Estimated glomerular filtration [...] was last reviewed 2015. Blood specimen (specimen) 04/24/2019 8:27 PM INDUSTRIAL CLEANING TECHNICIAN 04/24/2019 8:30 PM INDUSTRIAL CLEANING TECHNICIAN us Tavo Ochoa MD LAB BLOOD ORDERABLES [facility] Result TOMY SAHU ([place]) 1 [facility] [place], [place] [id number] * hCG, blood, quantitative (04/24/2019 8:27 PM INDUSTRIAL CLEANING TECHNICIAN) hCG, quant <5.0 0.0 - 5.0 IUnits/L TOMY SAHU ([place]) Comment: Interpretive Data Non- Female premenopausal: < or = 5.0 IUnits/L Men: < 5.0 IUnits/L Weeks of Gestation ? Reference Interval ?? 3 to 6 ? 5.8-31,795 IUnits/L ?? 7 to 10 ? 3,697-186,977 IUnits/L ??12 to 15 ?27,832- 70,791 IUnits/L ??16 to 18 ? 9,040- 58,179 IUnits/L Current Interpretive Data was last revised on 2017. Blood specimen (specimen) 04/24/2019 8:27 PM INDUSTRIAL CLEANING TECHNICIAN 04/24/2019 8:30 PM INDUSTRIAL CLEANING TECHNICIAN Tavo Ochoa MD LAB BLOOD ORDERABLES Fi nal Result TOMY SAHU ([place]) 1 [facility] [employer] [place] [address] * (ABNORMAL) Lipase (04/24/2019 8:27 PM INDUSTRIAL CLEANING TECHNICIAN) Pathologist [facility] Lipase 9(L) 10 - 99 Units/L [facility] ([place]) Blood specimen (specimen) 04/24/2019 8:27 PM INDUSTRIAL CLEANING TECHNICIAN 04/24/2019 8:30 PM INDUSTRIAL CLEANING TECHNICIAN Tavo Ochoa MD LAB BLOOD ORDERABLES Fi nal Result Performing Organization Address City/[facility] Co de Phone Number [facility] ([place]) 1 [facility] [employer] [place] [address] * CBC with auto differential (04/24/2019 8:27 PM INDUSTRIAL CLEANING TECHNICIAN) WBC 6.1 3.8 - 9.9 K/cumm [facility] ([place]) Hgb 14.6 11.9 - 15.5 g/dL [facility] ([place]) Hct 42.7 35.6 - 45.5 % [facility] ([place]) Plt 383 150 - 400 K/cumm [facility] ([place]) MPV 9.3 9.1 - 12.3 fL [facility] ([place]) RBC 5.02 3.90 - 5.20 M/cumm [facility] ([place]) MCV 85.1 81.3 - 96.4 fL [facility] ([place]) MCH 29.1 27.1 - 33.3 pg [facility] ([place]) MCHC 34.2 32.3 - 35.7 g/dL [facility] ([place]) RDW CV 13.8 11.1 - 14.9 % [facility] ([place]) RDW SD 42.8 35.7 - 48.1 fL [facility] ([place]) NRBC abs 0.00 0.00 - 0.01 K/cumm [facility] ([place]) Blood specimen (specimen) 04/24/2019 8:27 PM INDUSTRIAL CLEANING TECHNICIAN 04/24/2019 8:30 PM INDUSTRIAL CLEANING TECHNICIAN us Tavo Ochoa MD LAB BLOOD ORDERABLES Fi nal Result TOMY SAHU ([place]) 1 [facility] [place] [address] * (ABNORMAL) Comprehensive metabolic panel (04/24/2019 8:27 PM INDUSTRIAL CLEANING TECHNICIAN) Sodium 133(L) 135 - 145 mmol/L [facility] ([place]) Potassium, pl 3.7 3.3 - 4.9 mmol/L [facility] ([place]) Chloride 92(L) 97 - 110 mmol/L [facility] ([place]) CO2 19(L) 22 - 32 mmol/L [facility] ([place]) Anion gap 22(H) 2 - 15 mmol/L [facility] ([place]) BUN 14 8 - 25 mg/dL [facility] ([place]) Creatinine 0.45(L) 0.60 - 1.10 mg/dL [facility] ([place]) Glucose 322(H) 70 - 199 mg/dL [facility] ([place]) Comment: Interpretive Data Fasting [...] interpretive data was last revised 2017. Calcium 10.6(H) 8.5 - 10.3 mg/dL [facility] ([place]) Bilirubin, total 0.6 0.1 - 1.2 mg/dL [facility] ([place]) Protein, pl 7.8 6.5 - 8.5 g/dL [facility] ([place]) Albumin 4.8 3.5 - 5.0 g/dL [facility] Alk phos 83 40 - 130 Units/L [facility] ([place]) ALT 10 7 - 45 Units/L [facility] ([place]) AST 15 10 - 45 Units/L [facility] Blood specimen (specimen) 04/24/2019 8:27 PM INDUSTRIAL CLEANING TECHNICIAN 04/24/2019 8:30 PM INDUSTRIAL CLEANING TECHNICIAN us Tavo Ochoa MD LAB BLOOD ORDERABLES Fi nal Result Performing Organization Address City/[facility]/ZIP Co de Phone Number [facility] ([place]) [address] [facility] [employer] [place] [address] * (ABNORMAL) POCT glucose (04/24/2019 8:05 PM INDUSTRIAL CLEANING TECHNICIAN) [facility] Glucose, POC 261(H) 71 - 98 mg/dL [facility] ([place]) Blood specimen (specimen) 04/24/2019 8:05 PM INDUSTRIAL CLEANING TECHNICIAN 04/24/2019 8:05 PM INDUSTRIAL CLEANING TECHNICIAN us Notinfile Unknown LAB POCT ORDERABLES - DEVICE F inal Result Performing Organization Address City/[facility]/ZIP Co de Phone Number [facility] ([place]) [address] [facility] [employer] [place] [address] * Influenza A/B and RSV PCR Nasopharyngeal (04/24/2019 8:01 PM INDUSTRIAL CLEANING TECHNICIAN) [facility] Influenza A RNA Not Detected Not Detected [facility] ([place]) Influenza B RNA Not Detected Not Detected [facility] ([place]) RSV RNA Not Detected Not Detected [facility] ([place]) Nasopharyngeal 04/24/2019 8: 01 PM INDUSTRIAL CLEANING TECHNICIAN 04/24/2019 8:05 PM INDUSTRIAL CLEANING TECHNICIAN Narrative TOMY LUQUE) - 04/24/2019 8:39 PM INDUSTRIAL CLEANING TECHNICIAN This test is performed using the [employer] Xpert Flu/RSV Assay. This is a multiplex, real-time reverse transcriptase PCR assay that detects influenza A, influenza B, and respiratory syncytial virus RNA. This assay has been cleared by the Food and Drug Administration, and its performance characteristics have been verified by the [facility]. ??This test is performed using the [employer] Xpert Flu/RSV Assay. This is a multiplex, real-time reverse transcriptase PCR assay that detects influenza A, influenza B, and respiratory syncytial virus RNA. This assay has been cleared by the [place] Food and Drug Administration, and its performance characteristics have been verified by the [facility]. Tavo Ochoa MD LAB MICROBIOLOGY - [facility] ORDERABLES Final Result TOMY LUQUE) 1 [facility] [place] [address] documented in this encounter Visit Diagnoses Diagnosis Diabetic ketoacidosis without coma associated with type 1 diabetes mellitus (CMS/HCC) (HCC)- Primary Diabetic ketoacidosis without coma associated with type 1 diabetes mellitus (CMS/HCC) (HCC) Diabetic gastroparesis (CMS/HCC) (HCC) Type II or unspecified type diabetes mellitus with neurological manifestations, not stated as uncontrolled Dehydration Hypophosphatemia Disorders of phosphorus metabolism Hypomagnesemia Disorders of magnesium metabolism Metabolic acidosis Acidosis Pharyngitis Acute pharyngitis documented in this encounter Administered Medications Inactive Administered Medications - up to 3 most recent administrations Medication Order MAR Action Action Date Dose Rate Site azithromycin (ZITHROMAX) 500 mg in sodium chloride 0.9% 250 mL IVPB 500 mg, intravenous, at 255 mL/hr, Administer over 60 Minutes, Every 24 hours scheduled, First dose on Wed04/25/19 at 0330, Indications: Upper Respiratory/HEENT InfectionIndications:Upper Respiratory/HEENT Infection New Bag 04/25/2019 4:46 AM INDUSTRIAL CLEANING TECHNICIAN 500 mg 255 mL/hr dextrose (D10W) 10% bolus 1-500 mL 1-500 mL, intravenous, at 2-2,000 mL/hr, Administer over 15-30 Minutes, As needed, blood glucose less than 70 mg/dL, Starting on Wed04/24/19 at 2113, Dose as determined by GlucoStabilizer dka order. 25 gm = 250 mL 50 gm = 500 mL, Indications: HypoglyemiaIndications:Hypogl yemia dextrose (D10W) 10% bolus 250 mL 250 mL, intravenous, at 1,000 mL/hr, Administer over 15 Minutes, Every 15 min PRN, blood glucose less than 70 mg/dL and UNABLE to swallow/take PO glucose/juice., Starting on Wed04/25/19 at 0956, After treatment for hypoglycemia, recheck BG followed by treatment every 15 minutes until the BG is greater than 100 mg/dL. Then check BG 1 hour post treatment. If BG is less than 100 mg/dL, repeat Q15 minute BG checks and treatment. Call MD for each episode of hypoglycemia., Indications: hypoglycemic disorderIndications:hypoglyce [place] disorder dextrose 5% infusion 100 mL/hr, intravenous, Continuous, Starting on Wed04/24/19 at 2345, Start when blood glucose less than 250 mg/dL and decrease rate of previous IV fluid infusion order. Notify MD when blood glucose less than 250 mg/dL and adjusting IV fluids. New Bag 04/25/2019 8:39 AM INDUSTRIAL CLEANING TECHNICIAN 100 mL/hr 100 mL/hr New Bag 04/24/2019 11:25 PM INDUSTRIAL CLEANING TECHNICIAN 100 mL/hr 100 mL/hr dextrose gel in packet 15 g 15 g, oral, Every 15 min PRN, low blood sugar, blood glucose less than 70 mg/dL, Starting on Wed04/25/19 at 0956, If patient is alert and able to [...] unable to take PO glucose/jiuce., Starting on Wed04/25/19 at 0956, After Glucagon is administered, position patient on [...] MD for each episode of hypoglycemia., Indications: HypoglycemiaIndications: Hypoglycemia insulin glargine (LANTUS,BASAGLAR) pen injection 10 Units 10 Units, subcutaneous, Every morning, First dose on Wed04/25/19 at 1100, Do not mix with other insulins, Indications: Diabetes MellitusIndications:Diab etes Mellitus Given 04/25/2019 11:11 AM INDUSTRIAL CLEANING TECHNICIAN 10 Units Right Lower Abdomen insulin lispro (HumaLOG) pen injection 1-4 Units 1-4 Units, subcutaneous, Nightly, First dose on Wed04/25/19 at 2100, Blood Sugar High Dose PM - PO patients 139 or less No insulin 140 - 175 1 unit 176 - 200 2 units 201 - 250 3 units 251 - 299 4 units Greater than 299 Call MD for hyperglycemia management instructions Do NOT hold for NPO status., Indications: Diabetes MellitusIndications:Diab etes Mellitus insulin lispro (HumaLOG) pen injection 1-7 Units 1-7 Units, subcutaneous, 3 times daily with meals, First dose on Wed04/25/19 at 1200, Blood Sugar High Dose meal time - PO patients 139 or less No insulin 140 - 175 2 unit 176 - 200 3 unit 201 - 250 5 units 251 - 299 7 units Greater than 299 Call MD for hyperglycemia management instructions Do NOT hold for NPO status., Indications: Diabetes MellitusIndications:Diab etes Mellitus insulin lispro (HumaLOG) pen injection 3 Units 3 Units, subcutaneous, 3 times daily with meals, First dose on Wed04/25/19 at 1030, If BG 100 mg/dl or more, give [...] adjustment in patient's insulin dose., Indications: Diabetes MellitusIndications:Diab etes Mellitus insulin regular (HumuLIN R, NovoLIN R) 100 Units in sodium chloride 0.9% 100 mL (1 Units/mL) infusion 0-30 Units/hr (0-30 mL/hr), 1 units/mL, intravenous, Titrated, Starting on Wed04/24/19 at 2114, Until Wed04/25/19 at 1802, Indications: Hyperglycemia, Desired Range (mg/dL): 130-180 general patients, Multiplier: 0.01, Adjust rate per GlucoStabilizer program for dka order When new IV tubing is used, completely prime the tubing. Once primed, waste an additional 20 ml of insulin infusion using the IV pump prior to connecting to patient., RoutineIndications:Hyper glycemia Rate/Dose Change 04/25/2019 11:23 AM INDUSTRIAL CLEANING TECHNICIAN 1 Units/hr 1 mL/hr Rate/Dose Change 04/25/2019 10:34 AM INDUSTRIAL CLEANING TECHNICIAN 1.4 Units/hr 1.4 mL/hr Rate/Dose Change 04/25/2019 9:38 AM INDUSTRIAL CLEANING TECHNICIAN 1.6 Units/hr 1.6 m L/hr insulin regular (HumuLIN R, NovoLIN R) injection 6 Units 6 Units, intravenous, Once, On Wed04/24/19 at 2055, For 1 dose Given 04/24/2019 9:02 PM INDUSTRIAL CLEANING TECHNICIAN 6 Units insulin regular bolus from bag 1-10 Units 1-10 Units, intravenous, As needed, hyperglycemia, Starting on Wed04/24/19 at 2113, Bolus per GlucoStabilizer dka order., Indications: HyperglycemiaIndications:Hyperglyc emia magnesium sulfate 2 g/50 mL in water (premix) 2 g 2 g, intravenous, Administer over 60 Minutes, Once, On Wed04/24/19 at 2345, For 1 dose, Do not give if serum Cr greater than 2.5 mg/dL., Indications: Magnesium RepletionIndications:Magnesium Repletion New Bag 04/25/2019 1:01 AM INDUSTRIAL CLEANING TECHNICIAN 2 g metoclopramide (REGLAN) injection 10 mg 10 mg, intravenous, Administer over 1 Minutes, Once, On Wed04/24/19 at 2004, For 1 dose Given 04/24/2019 8:24 PM INDUSTRIAL CLEANING TECHNICIAN 10 mg ondansetron (ZOFRAN) injection 4 mg 4 mg, intravenous, Administer over 2 Minutes, Every 6 hours PRN, nausea, vomiting, if not tolerating PO, Starting on Wed04/24/19 at 2249, Indications: Nausea and VomitingIndications:Nausea and Vomiting ondansetron ODT (ZOFRAN-ODT) disintegrating tablet 4 mg 4 mg, oral, Every 6 hours PRN, nausea, vomiting, Starting on Wed04/24/19 at 2249, Indications: Nausea and VomitingIndications:Nausea and Vomiting pantoprazole (PROTONIX) injection 40 mg 40 mg, intravenous, Administer over 2 Minutes, Every 24 hours scheduled, First dose on Wed04/24/19 at 2004, For 1 dose, Indications: Treatment of Non-Bleeding Gastric DisorderIndications:Treatment of Non-Bleeding Gastric Disorder Given 04/24/2019 8:24 PM INDUSTRIAL CLEANING TECHNICIAN 40 mg sodium chloride 0.45% infusion 150 mL/hr, intravenous, Continuous, Starting on Wed04/24/19 at 2345, Decrease rate to 100 mL/hr when blood glucose less than 250 mg/dL. New Bag 04/25/2019 10:34 AM INDUSTRIAL CLEANING TECHNICIAN 150 mL/hr 150 mL/hr Rate/Dose Change 04/25/2019 3:39 AM INDUSTRIAL CLEANING TECHNICIAN 100 mL/hr 100 mL/ hr New Bag 04/24/2019 11:26 PM INDUSTRIAL CLEANING TECHNICIAN 150 mL/hr 150 mL/hr sodium chloride 0.9% bolus 1,000 mL 1,000 mL, intravenous, at 1,000 mL/hr, Administer over 1 Hours, Once, On Wed04/24/19 at 2004, For 1 dose New Bag 04/24/2019 8:26 PM INDUSTRIAL CLEANING TECHNICIAN 1,000 mL 1000 mL/hr documented in this encounter Historical Medications * This list may reflect changes made after this encounter. ADMELOG U-100 INSULIN LISPRO SUBQ Inject 5 Units under the skin 3 (three) times a day before meals 0 norethindrone-e.est radiol-iron (JUNEL FE 05/22) 1 mg-20 mcg (21)/75 mg (7) per tabletIndications:P regnancy Contraception Take 1 tablet by mouth daily 0 metoclopramide (REGLAN) solution 5 mg/5 mL Take 10 mg by mouth 4 (four) times a day before meals and nightly Patient states no longer taking for past several days 0 added in this encounter Active and Recently Administered Medications Times are shown in INDUSTRIAL CLEANING TECHNICIAN. Scheduled Medication Order 04/23/2019 04/24/2019 04/25/2019 azithromycin (ZITHROMAX) 500 mg in sodium chloride 0.9% 250 mL IVPB 500 mg, intravenous, at 255 mL/hr, Administer over 60 Minutes, Every 24 hours scheduled, First dose on Wed04/25/19 at 0330, Indications: Upper Respiratory/HEENT Infection 0446 (New Bag - Provider: Pascual Perry, RN) insulin glargine (LANTUS,BASAGLAR) pen injection 10 Units 10 Units, subcutaneous, Every morning, First dose on Wed04/25/19 at 1100, Do not mix with other insulins, Indications: Diabetes Mellitus 1111 (Given - Provid er: Kanchan Loaiza, MARY) insulin lispro (HumaLOG) pen injection 1-4 Units 1-4 Units, subcutaneous, Nightly, First dose on Wed04/25/19 at 2100, Blood Sugar High Dose PM [...] times daily with meals, First dose on Wed04/25/19 at 1200, Blood Sugar High Dose meal time - PO patients 139 or less No insulin 140 - 175 2 unit 176 - 200 3 unit 201 - 250 5 units 251 - 299 7 units Greater than 299 Call MD for hyperglycemia management instructions Do NOT hold for NPO status., Indications: Diabetes Mellitus 1122 (Not Given - Provider: Kanchan Loaiza RN - Reason: Order parameters not met) insulin lispro (HumaLOG) pen injection 3 Units 3 Units, subcutaneous, 3 times daily with meals, First dose on Wed04/25/19 at 1030, If BG 100 mg/dl or more, give [...] in patient's insulin dose., Indications: Diabetes Mellitus 1112 (Not Given - Provider: Kanchan Loaiza RN - Reason: Other - Comment: pt refusing food) insulin regular (HumuLIN R, NovoLIN R) injection 6 Units (COMPLETED) 6 Units, intravenous, Once, On Wed04/24/19 at 2055, For 1 dose 2101 (Given - Provider: Jimena Malave RN) magnesium sulfate 2 g/50 mL in water (premix) 2 g (COMPLETED) 2 g, intravenous, Administer over 60 Minutes, Once, On Wed04/24/19 at 2345, For 1 dose, Do not give if serum Cr greater than 2.5 mg/dL., Indications: Magnesium Repletion 010 (New Bag - Provider: Pascual Perry RN) metoclopramide (REGLAN) injection 10 mg (COMPLETED) 10 mg, intravenous, Administer over 1 Minutes, Once, On Wed04/24/19 at 2003, For 1 dose 2023 (Given - Provider: Juana Delarosa RN) pantoprazole (PROTONIX) injection 40 mg (COMPLETED) 40 mg, intravenous, Administer over 2 Minutes, Every 24 hours scheduled, First dose on Wed04/24/19 at 2003, For 1 dose, Indications: Treatment of Non-Bleeding Gastric Disorder 2023 (Given - Provider: Juana Delarosa RN) sodium chloride 0.9% bolus 1,000 mL (COMPLETED) 1,000 mL, intravenous, at 1,000 mL/hr, Administer over 1 Hours, Once, On Wed04/24/19 at 2003, For 1 dose 2025 (New Bag - Provider: Juana Delarosa RN)2125 (Due: Stopped - Provider: Juana Delarosa RN) Continuous Medication Order 04/23/2019 04/24/2019 04/25/2019 dextrose 5% infusion 100 mL/hr, intravenous, Continuous, Starting on Wed04/24/19 at 2345, Start when blood glucose less than 250 mg/dL and decrease rate of previous IV fluid infusion order. Notify MD when blood glucose less than 250 mg/dL and adjusting IV fluids. 2325 (New Bag - Provider: Pascual Perry RN) 0839 (New Bag - Provider: Kanchan Loaiza, MARY) insulin regular (HumuLIN R, NovoLIN R) 100 Units in sodium chloride 0.9% 100 mL (1 Units/mL) infusion 0-30 Units/hr (0-30 mL/hr), 1 units/mL, intravenous, Titrated, Starting on Wed04/24/19 at 2114, Until Wed04/25/19 at 1802, Indications: Hyperglycemia, Desired Range (mg/dL): 130-180 general patients, Multiplier: 0.01, Adjust rate per GlucoStabilizer program for dka order When new IV tubing is used, completely prime the tubing. Once primed, waste an additional 20 ml of insulin infusion using the IV pump prior to connecting to patient., Routine 2141 (New Bag - Provider: Jimena Malave RN)2246 (Rate/Dose Change - Provider: Pascual Perry RN)2342 (Rate/Dose Change - Provider: Pascual Perry RN) 0039 (Rate/Dose Change - Provider: Pascual Perry RN)0140 (Rate/Dose Change - Provider: Pascual Perry RN)0238 (Rate/Dose Change - Provider: Pascual Perry RN)0348 (Rate/Dose Change - Provider: Pascual Perry RN)0444 (Rate/Dose Change - Provider: Pascual Perry RN)0446 (Hold - Provider: Pascual Perry RN - Reason: Other - Comment: zithromax running, compatibility not tested with IV regular insulin)0545 (Restarted - Provider: Pascual Perry RN)0547 (Rate/Dose Change - Provider: Pascual Perry RN)0630 (Rate/Dose Change - Provider: Pascual Perry RN)0732 (Rate/Dose Change - Provider: Pascaul Perry RN)0839 (Rate/Dose Change - Provider: Kanchan Loaiza, MARY)0938 (Rate/Dose Change - Provider: Kanchan Loaiza RN)1034 (Rate/Dose Change - Provider: Kanchan Loaiza RN)1123 (Rate/Dose Change - Provider: Kanchan Loaiza, RN)1215 (Stopped - Provider: Kanchan Loaiza RN) sodium chloride 0.45% infusion 150 mL/hr, intravenous, Continuous, Starting on Wed04/24/19 at 2345, Decrease rate to 100 mL/hr when blood glucose less than 250 mg/dL. 2326 (New Bag - Provider: Pascual Perry RN) 0339 (Rate/Dose Change - Provider: Pascual Perry RN - Comment: per order)1034 (New Bag - Provider: Kanchan Loaiza RN) PRN Medication Order 04/23/2019 04/24/2019 04/25/2019 dextrose (D10W) 10% bolus 1-500 mL 1-500 mL, intravenous, at 2-2,000 mL/hr, Administer over 15-30 Minutes, As needed, blood glucose less than 70 mg/dL, Starting on Wed04/24/19 at 2113, Dose as determined by GlucoStabilizer dka order. 25 gm = 250 mL 50 gm = 500 mL, Indications: Hypoglyemia dextrose (D10W) 10% bolus 250 mL(Linked Group 1) 250 mL, intravenous, at 1,000 mL/hr, Administer over 15 Minutes, Every 15 min PRN, blood glucose less than 70 mg/dL and UNABLE to swallow/take PO glucose/juice., Starting on Wed04/25/19 at 0956, After treatment for hypoglycemia, recheck BG followed [...] than 70 mg/dL, Starting on Wed04/25/19 at 0956, If patient is alert and able to [...] unable to take PO glucose/jiuce., Starting on Wed04/25/19 at 0956, After Glucagon is administered, position patient on [...] Units, intravenous, As needed, hyperglycemia, Starting on Wed04/24/19 at 2113, Bolus per GlucoStabilizer dka order., Indications: Hyperglycemia ondansetron (ZOFRAN) injection 4 mg(Linked Group 2) 4 mg, intravenous, Administer over 2 Minutes, Every 6 hours PRN, nausea, vomiting, if not tolerating PO, Starting on Wed04/24/19 at 2249, Indications: Nausea and Vomiting 2304 (Not Given - Provider: Pascual Perry RN - Reason: Patient/family refused) ondansetron ODT (ZOFRAN-ODT) disintegrating tablet 4 mg(Linked Group 2) 4 mg, oral, Every 6 hours PRN, nausea, vomiting, Starting on Wed04/24/19 at 2249, Indications: Nausea and Vomiting 2304 (See Alternative - Provider: Pascual Perry, MARY) potassium chloride 40 mEq in sodium chloride 0.9% 500 mL IVPB 40 mEq, intravenous, at 130 mL/hr, Administer over 4 Hours, Every 4 hours PRN, K less than 3.5 mmol/L, Starting on Wed04/24/19 at 2257, For 12 hours, With peripheral IV access, Indications: hypokalemia Linked Groups Order Group 1: dextrose gel in packet 15 gJump to med 15 g, oral, Every 15 min PRN, low blood sugar, blood glucose less than 70 mg/dL, Starting on Wed04/25/19 at 0956, If patient is alert and able to [...] UNABLE to swallow/take PO glucose/juice., Starting on Wed04/25/19 at 0956, After treatment for hypoglycemia, recheck BG followed [...] 6 hours PRN, nausea, vomiting, Starting on Wed04/24/19 at 2249, Indications: Nausea and Vomiting Or ondansetron (ZOFRAN) injection 4 mgJump to med 4 mg, intravenous, Administer over 2 Minutes, Every 6 hours PRN, nausea, vomiting, if not tolerating PO, Starting on Wed04/24/19 at 2249, Indications: Nausea and Vomiting documented in this encounter Orders Medications Ordered That Evan ht Not Have Been Administered Count Last Ordered Date First Ordered Date azithromycin (ZITHROMAX) tablet 500 mg 1 dextrose (D10W) 10% bolus 250 mL 04/25/20 dextrose gel in packet 15 g 1 04/25/2019 glucagon injection 1 mg 1 04/25/2019 insulin lispro (HumaLOG) pen injection 1-4 Units 1 04/25/2019 insulin lispro (HumaLOG) pen injection 1-7 Units 1 04/25/2019 insulin lispro (HumaLOG) pen injection 3 Units 1 04/25/2019 dextrose (D10W) 10% bolus 1-500 mL 1 2018 insulin regular bolus from bag 1-10 Units 1 04/24/2019 ondansetron (ZOFRAN) injection 4 mg 1 04/24 ondansetron ODT (ZOFRAN-ODT) disintegrating tablet 4 mg 1 04/24/2019 potassium chloride 40 mEq in sodium chloride 0.9% 500 mL IVPB 1 04/24/2019 sodium chloride 0.9% infusion 1 04/24/2019 Lab Orders Without Results Count Last Ordered D ate First Ordered Date POCT GLUCOSE DEVICE 4 04/25/2019 04/24/20 19 Diet Count Last Ordered Date First Orde red Date ADULT DISCHARGE DIET 1 04/25/2019 Nursing Count Last Ordered Date First Orde red Date DISCHARGE ACTIVITY 1 04/25/2019 FOLLOW UP WITH PROVIDER 1 04/25/2019 Isolation Count Last Ordered Date First Orde red Date INITIATE DROPLET ISOLATION 1 04/25/2019 CORE MEASURES Count Last Ordered Date First Ord ered Date REASON FOR NO VTE PROPHYLAXIS AT ADMISSION 1 04/24/2019 ADT Patient Update Count Last Ordered Date Firs t Ordered Date ED IP DECISION TO ADMIT 1 04/24/2019 documented in this encounter Care Teams Farm Instructor Relationship Specialty Start Date End Date Carrie Joseph PA [address] [place] [address] PCP - General 10/04/18 07/19/21 Warren Phillips MD [address] [place] [address] Consulting Physician Gastroenterology 02/16/19 documented as of this encounter
--- OUTSIDE RECORDS SUMMARY | 2024-05-10 18:40 | XMS_ITS | Encounter Summary ---
Author Organization 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
--- OUTSIDE RECORDS SUMMARY | 2024-05-10 18:40 | XMS_ITS | Encounter Summary ---
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
--- OUTSIDE RECORDS SUMMARY | 2024-05-10 18:40 | XMS_ITS | Encounter Summary ---
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
--- OUTSIDE RECORDS SUMMARY | 2024-05-10 18:41 | XMS_ITS | Encounter Summary ---
Author Organization [facility] Healthcare Address [address] [place] [address] Care Team Providers Care Rotary Filter Operator Name Role Phone Carrie Joseph Primary Care Provider + Encounter Details Date Type Department Care Team (Late st Contact Info) Description 11/10/2018 2:31 PM CDT - 11/10/2018 3:41 PM CDT Surgery [facility] Operating Room [address] [place] [address] Alexa Munoz MD [address] [place] [id number] SUCTION DILATION AND CURETTAGE Surgery Details Date/Time Status Location OR Service Patient Class Case Class Case Type Trauma Case? 11/10/2018 2:31 PM Posted [facility] OR Obstetrics / Gynecology Outpatient Elective Panel 1 Procedure LRB Anes Op Region Wound Class Comments SUCTION DILATION AND CURETTAGE N/A General Uterus Class II - Clean Contaminated Surgeon Surgeon Role Service Panel Alexa Munoz MD Primary Obstetrics / Gy necology 1 documented in this encounter Social History Tobacco Use Types Packs/Day Years Used Date Smoking Tobacco: Never Smokeless Tobacco: Never Alcohol Use Standard Drinks/Week Comments Not Currently 0 (1 standard drink = 0.6 oz pur e alcohol) Comments Yes Sex and Gender Information Value Date Recorded Sex Assigned at Not on file 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 Gender Identity Not on file Sexual Orientation Not on file documented as of this encounter Last Filed Vital Signs Vital Sign Reading Time Taken Comments Blood Pressure 113/73 11/10/2018 1:15 PM CDT Pulse 110 11/10/2018 1:15 PM CDT Temperature 36.2 ??C (97.1 ??F) 11/10/2018 1:15 PM CD T Respiratory Rate 16 11/10/2018 1:15 PM CDT Oxygen Saturation 100% 11/10/2018 1:15 PM CDT Inhaled Oxygen Concentration - - Weight 59.3 kg (130 lb 11.7 oz) 11/10/2018 1:15 PM CDT Height 154.9 cm (5' 1 ) 11/10/2018 1:15 PM CDT Body Mass Index 24.7 11/10/2018 1:15 PM CDT documented in this encounter Discharge Instructions * Discharge Instructions* Alexa Munoz MD - 11/10/2018 4:00 PM CDT Take medication as prescribed. Follow up with Dr. Munoz in 2 weeks. Call for appointment. * Attachments The following attachments cannot be sent through Care Everywhere. * Methylergonovine (By mouth) (Rwandan) * Ibuprofen (By mouth) (Rwandan) * Doxycycline (By mouth) (Rwandan) * General Anesthesia (Discharge Care) (Rwandan) documented in this encounter Medications at Time of Discharge doxycycline (VIBRAMYCIN) 100 mg capsule Take 1 tablet/capsule (100 mg total) by mouth 2 (two) times a day 6 tablet/capsule 11/10/2018 9 glucagon 1 mg kitIndications:H ypoglycemia Inject 1 mL (1 mg total) into the muscle as instructed every 30 (thirty) minutes as needed (blood glucose less than 70 mg/dL AND no IV access AND unable to take PO glucose/jiuce.) 10/07/2018 9 ibuprofen (ADVIL,MOTRIN) 600 mg tablet Take 1 tablet (600 mg total) by mouth every 6 (six) hours as needed for pain (pain) 30 tablet 2 11/10/2018 9 insulin glargine (LANTUS,BASAGLAR ) 100 unit/mL (3 mL) insulin pen Inject 14 Units under the skin daily 1 methylergonovine (METHERGINE) 0.2 mg tablet Take 1 tablet (0.2 mg total) by mouth 3 (three) times a day 9 tablet 11/10/2018 9 documented as of this encounter Ordered Prescriptions Prescription Sig Dispense Quantity Refills Last Filled Start Date End Date ibuprofen (ADVIL,MOTRIN) 600 mg tablet Take 1 tablet (600 mg total) by mouth every 6 (six) hours as needed for pain (pain) 30 tablet 2 11/10/2018 02/14/2019 methylergonovine (METHERGINE) 0.2 mg tablet Take 1 tablet (0.2 mg total) by mouth 3 (three) times a day 9 tablet 11/10/2018 02/14/2019 doxycycline (VIBRAMYCIN) 100 mg capsule Take 1 tablet/capsu le (100 mg total) by mouth 2 (two) times a day 6 tablet/capsule 11/10/2018 02/14/2019 documented in this encounter Discharge Disposition Disposition Code Departure Means Destination Left Against Medical Advice documented in this encounter Progress Notes * Kita Membreno CRNA - 11/10/2018 5:00 PM CDT At 1620 - PACU nurse called anesthesia to patient's bedside in recovery room for patient complaining of a swollen tongue. Pt's tongue & lips were markedly swollen. Pt also had red hives on chest,abdomen, bilateral axilla, and groins. Pt does not complain of difficulty breathing or swallowing. VS remain stable. Pt has NKDA and her intraop course was unremarkable. Pt given Benadryl & Pepcid IV. At 1500 - Pt's lips remain swollen but are improved. Hives & redness to trunk are greatly improved. PACU nurses, Dr Perea, Dr Munoz and Laura Membreno CRNA are in agreement to send to floor for extended recovery. Pt may be discharged later tonight if swelling and hives continue to improve. Pt advisedto return to ER if she has any worsening of symptoms or difficulty breathing. documented in this encounter H&P Notes * Alexa Munoz MD - 11/10/2018 1:45 PM CDT I have reviewed the H&P, examined the patient, and endorse the findings as written. Plan of Care : Based on the above findings, I consider Karina Menjivar to be an acceptable risk for : Procedure(s): SUCTION DILATION AND CURETTAGE Source Note - Scanning, Provider - 11/10/2018 12:42 PM CDT documented in this encounter Nursing Notes * Juana Vail RN - 11/10/2018 10:00 PM CDT Patient was informed of physician wanting to admit for monitoring and DM control. patient verbalized that she was not staying after being told that she only had to stay for a short time to monitor for any worsening of her allergic reaction post-operatively. I explained to the patient that it would be a good idea to stay and be monitored for rebound anaphylactic reaction and that harm or could come to her if this were to happen, and that if she stayed overnight we could monitor her closelyand medicate to help prevent a recurrence. Patient refused to stay and left AMA. * Juana Vail RN - 11/10/2018 9:49 PM CDT Communication via phone with Dr. Munoz several times this shift. Dr. Munoz suggested a consult for hospitalist and then called back wanting patient admitted to hospitalist service to be monitored for rebound anaphylactic reactions and DM monitoring. I informed Dr. Munoz that the patient refuses to stay overnight and has verbalized that she is going to leave AMA because she was told that if she did not show any more signs of allergic reactions or her symptoms did not worse between 2100 And 2200 that she could go home. I conversed with Dr. Munoz who reiterated that she was just looking out for the patient and her risks of rebound anaphylactic reaction after discharge without having a steroid on board to cuprous chloride helper in prevention of a rebound reactions. Dr. Prado was notified of the consult and Kita Membreno CRNA was notified of patient status update. PURNIMA East verbalized that the patient would be fine for discharge without steroids, which would increase her risks of hyperglycemia, since there was improvement with allergic reaction and that patient asymptomatic at this time. verbalized she would take the consult, however she would not be able to evaluate at this moment due to other consults, but would see the patient as soon as she could. reviewed the patient chart and verbalized that she would prefer to not place patient on steroids due to high risks for h yperglycemia or DKA, since she was treated after surgery by PURNIMA and that patient was currently asymptomatic. Dr. Munoz was made aware of the point of views from both the hospitalist and anesthesia. * Kathryn Caldwell RN - 11/10/2018 6:48 PM CDT Pt arrived to floor with no swelling, rash, or hives. Pt has no complaints of pain and jackelin pad remains with no drainage. Pt is resting in bed with no complaints and Significant other is at the bedside. documented in this encounter Miscellaneous Notes * Perioperative Nursing Note - Valeria Tracy RN - 11/10/2018 4:20 PM CDT 1619Patient started to complain that tongue felt tingling. She stuck her tongue out and it appearedswollen and lips were swelling. Called Kita Membreno CRNA to come look at patient and then patient was showing a rash and hives to chest and torso. No c/o difficulty breathing. Had not had any meds in PACU. Removed plastic gown and placed a cloth gown. Kita called Dr Perea and Dr Munoz to alert them. 1622 Benedryl 50mg given IV. 1643 Pepcid 40mg given IV. 1720 Patient looks so much better rash has gone away lips and tongue are much less swollen. States that tongue is not tingling at this time. Going to SCU for observation until 2100 or 2200 and if no further sign of allergic reaction may go home. * Perioperative Nursing Note - Tara Francis RN - 11/10/2018 2:42 PM CDT HCG result posted on system, Dr. Munoz informed and viewed result; will proceed with case. * Op Note - Alexa Munoz MD - 11/10/2018 2:31 PM CDT Operative Progress Note Surgical Team: Surgeon(s) and Role: * Alexa Munoz MD - Primary Anesthesiologist: Tawanda Perea MD PIT AND AUXILIARIES SUPERVISOR: Tj Brown CRNA Audio Engineer: Landon Ford RN; Yanet Mcgraw RN Loan Funder: ST Ady FLOAT: Caitlin Brewster RN DATE OF SURGERY : 11/10/2018 Preoperative Diagnosis: Missed Ab Postoperative Diagnosis: Same Procedure(s): Procedure(s) (LRB): SUCTION DILATION AND CURETTAGE (N/A) Operative Findings: Products of conception Estimated Blood Loss: 400 mL Intraoperative Fluids: See anesthesia record Specimens: ID Type Source Tests Collected by Time A : products of conception Tissue POC, , spontaneous or missed SURGICAL PATHOLOGY Alexa Munoz MD 11/10/2018 1519 Implants: Nothing was implanted during the procedure Blood/Blood Products Transfused: None Complications: None Procedure: The patient was taken to the operating room and placed under general anesthesia. When anesthesia was found to be adequate, the patient was placed in the dorso- lithotomy position and prepped and draped in sterile fashion. A bivalve speculum was placed into the vagina and the anterior lip of the cervix was grasped with asingle-toothed tenaculum. The cervix was dilated to 10 mm with Taylor serial dilators. A number 9 suction curette was introduced to the uterine fundus. The suction device was activated and the curette was rotated in a clockwise fashion along with slow retraction. This was repeated multiple times. A sharp curette was then introduced to the uterine fundus and sharp curettage was performed until agritty texture was noted at 360 degrees. Minimal bleeding was observed from the cervical os. The suction curette was then reintroduced to the uterine fundus, activated, and rotated clockwise with retraction to clear the uterus of remaining clots and debris. Minimal bleeding was observed fromthe cervical os. The tenaculum was removed under direct visualization. Pressure was held on the tenaculum sites until excellent hemostasis was observed. The bivalve speculum was then removed. The patient tolerated the procedure well. Sponge, lap, and needle counts were correct x 2. The patient was taken to the recovery room in stable condition. Condition on Discharge from the operating room was stable Alexa Munoz MD Date: 11/10/2018 Time: 3:53 PM No Resident involved on case * Perioperative Nursing Note - Tara Francis RN - 11/10/2018 2:20 PM CDT Lab called regarding time hCG, blood, quant result to be posted. Lab stated that specimen was on machine and needed to be diluted before processing for final result. Dr. Munoz informed. * Perioperative Nursing Note - Tara Francis RN - 11/10/2018 1:[address] Perea ordered Regular Insulin 6 units IV for coverage of blood glucose of 225. * Perioperative Nursing Note - Tara Francis RN - 11/10/2018 1:[address] Munoz here requested order for serum before procedure; drawn and sent to lab. * Perioperative Nursing Note - Tara Francis RN - 11/10/2018 1:[address] Munoz here requested order for serum before procedure; drawn and sent to lab. * Pre-Procedure Instructions - Melissa Smallwood RN - 11/09/2018 3:18 PM CDT We are pleased that you and your doctor have chosen [facility] for your surgery. We hope that the following information will help make your visit a pleasant one. Surgery Date: 11/10/2018; Arrival 1:00pm; Surgery 2:30pm. Before your surgery: ?? Notify your doctor of ANY change in your health such as a cold, sore throat, fever, any infection or a change in the problem for which you are having your surgery. ?? Follow any instructions given to you by your doctor or surgeon. One week before surgery STOP taking: ?? All herbal supplements ?? Aspirin (not ordered by your doctor) ?? Aleve, Advil, Motrin, Ibuprofen, or other similar medications (Tylenol is okay). 24 hours before your surgery: ?? No smoking or alcoholic drinks. Night before your surgery: ?? Do not eat anything after midnight. As per anesthesia patient may have water only up til two hours before arrival. ?? Take only half of your normal PM Insulin dose. ?? Follow surgeon's instructions for anti-bacterial shower night before and morning of surgery. Day of surgery: ?? Do not swallow any water when you brush your teeth. ?? Do not take your AM insulin dose or any diabetic medicines ?? ONLY take these pills with a tiny sip of water. ?? Use no make-up, nail gabonese, lotions, oils or powders on your skin. ?? Wear comfortable clothes that will not be tight in the area of your surgery. ?? Leave all valuables and jewelry (including all body piercing jewelry) at home. ?? Please bring your a photo ID, insurance cards and co-payment if required with you. ?? Check in at the Ambulatory Surgery Check-In. ?? If you are 17 years old or younger, a parent or guardian must come with you. After your Outpatient Surgery: ?? You must have a responsible adult to drive you home, you will not be allowed to drive or take a cab home. ?? We recommend you have someone stay with you for 24 hours after your surgery. What to bring if you are spending the night with us: ?? Bring toiletry items such as: robe, slippers, toothbrush, toothpaste, brush or comb. ?? Bring contact lens, hearing aids, glass cases and denture container if you use any of these items. ?? The hospital will provide you with a gown. Questions or concerns: ?? If you have any questions or concerns regarding your procedure, contact your surgeon as soon as possible. ?? If you have questions regarding your Pre-Admission Testing, please call us. We can be reached atthe number posted at the top of the page. documented in this encounter Plan of Treatment Not on file documented as of this encounter Procedures Procedure Name Priority Date/Time Associated Diagnosis Comments POCT GLUCOSE DEVICE Routine 11/10/2018 3 :54 PM CDT SUCTION DILATION AND CURETTAGE 11/10/2018 2:35 PM CDT missed AB POCT GLUCOSE DEVICE Routine 11/10/2018 2 :29 PM CDT EGFR STAT 11/10/2018 1:38 PM CDT ABO/RH STAT 11/10/2018 1:38 PM CDT CBC WITHOUT DIFFERENTIAL STAT 11/10/2018 1:38 PM CDT ANTIBODY SCREEN STAT 11/10/2018 1:38 PM CDT TYPE AND SCREEN STAT 11/10/2018 1:38 PM CDT HCG, BLOOD, QUANTITATIVE STAT 11/10/2018 1:38 PM CDT BASIC METABOLIC PANEL STAT 11/10/2018 1:38 PM CDT POCT GLUCOSE DEVICE Routine 11/10/2018 1 :31 PM CDT SURGICAL PATHOLOGY Routine 11/10/2018 11 :11 AM CDT Missed ab documented in this encounter Results * POCT glucose (11/10/2018 3:54 PM CDT) Glucose, POC 81 71 - 98 mg/dL [facility] ([place]) Blood specimen (specimen) 11/10/2018 3:54 PM CDT 11/10/2018 3:54 PM CDT us Alexa Munoz MD LAB POCT ORDERABLES - DE VICE Final Result Performing Organization Address [facility] Co de Phone Number ASHLEYTOSHA SAHU ([place]) [address] [facility] [place] [address] * (ABNORMAL) POCT glucose (11/10/2018 2:29 PM CDT) Glucose, POC 144(H) 71 - 98 mg/dL [facility] ([place]) Blood specimen (specimen) 11/10/2018 2:29 PM CDT 11/10/2018 2:29 PM CDT us lAexa Munoz MD LAB POCT ORDERABLES - DE VICE Final Result Performing Organization Address [facility] Co de Phone Number [facility] [address] [place] [address] * eGFR (11/10/2018 1:38 PM CDT) eGFR 156 mL/min/1.7 3 m2 [facility] ([place]) Comment: Interpretive Data Reference Interval Normal ?>/= 90 mL/min/1.73m2 Mildly decreased* ? 60 - 89 mL/min/1.73m2 Mildly to moderately decreased ?45 - 59 mL/min/1.73m2 Moderately to severely decreased ??30 - 44 mL/min/1.73m2 Severely decreased ?15 - 29 mL/min/1.73m2 Kidney Failure ?< 15 ??mL/min/1.73m2 *Relative to young adult level If -Kosovan multiply value by 1.16. Estimated glomerular filtration [...] was last reviewed 2015. Blood specimen (specimen) 11/10/2018 1:38 PM CDT 11/10/2018 1:41 PM CDT us Tawanda Perea MD LAB BLOOD ORDERABLES F inal Result Performing Organization Address City/[facility]/ZIP Co de Phone Number TOMY LUIS ALBERTO ([place]) [address] [facility] [place] [address] * Antibody screen (11/10/2018 1:38 PM CDT) Selvin, indirect, Gel Interpretation Negative ABSC [facility] ([place]) Blood specimen (specimen) 11/10/2018 1:38 PM CDT 11/10/2018 1:41 PM CDT Narrative [facility] ([place]) - 11/10/2018 2:18 PM CDT Has the patient had Daratumumab (Darzalex) in the past 6 months?->Unknown us Alexa Munoz MD LAB BLOOD BANK TEST ORDHuma DILAN Final Result [facility] ([place]) [address] [facility] [place] [address] * ABO/Rh (11/10/2018 1:38 PM CDT) ABO/Rh O Positive [facility] ([place]) Blood specimen (specimen) 11/10/2018 1:38 PM CDT 11/10/2018 1:41 PM CDT Narrative [facility] ([place]) - 11/10/2018 2:18 PM CDT Has the patient had Daratumumab (Darzalex) in the past 6 months?->Unknown us Alexa Munoz MD LAB BLOOD BANK TEST HANDY KONG Final Result [facility] ([place]) [address] [facility] Department [place] [address] * (ABNORMAL) Basic metabolic panel (11/10/2018 1:38 PM CDT) Sodium 135 135 - 145 mmol/L [facility] ([place]) Potassium, pl 3.6 3.3 - 4.9 mmol/L [facility] ([place]) Chloride 98 97 - 110 mmol/L [facility] ([place]) CO2 24 22 - 32 mmol/L [facility] ([place]) Anion gap 14 2 - 15 mmol/L [facility] ([place]) BUN 6(L) 8 - 25 mg/dL [facility] ([place]) Creatinine 0.34(L) 0.60 - 1.10 mg/dL [facility] ([place]) Glucose 254(H) 70 - 199 mg/dL [facility] ([place]) Comment: Interpretive Data Fasting [...] 9.2 8.5 - 10.3 mg/dL [facility] ([place]) Blood specimen (specimen) 11/10/2018 1:38 PM CDT 11/10/2018 1:41 PM CDT Tawanda Perea MD LAB BLOOD ORDERABLES F inal Result Performing Organization Address [facility] Co de Phone Number [facility] [address] [place] [address] [place] [address] * (ABNORMAL) hCG, blood, quantitative (11/10/2018 1:38 PM CDT) hCG, quant 16,818.0( H) 0.0 - 5.0 IUnits/L [facility] ([place]) Comment: Interpretive Data Non- Female premenopausal: < or = 5.0 IUnits/L Men: < 5.0 IUnits/L Weeks of Gestation ? Reference Interval ?? 3 to 6 ? 5.8-31,795 IUnits/L ?? 7 to 10 ? 3,697-186,977 IUnits/L ??12 to 15 ?27,832- 70,791 IUnits/L ??16 to 18 ? 9,040- 58,179 IUnits/L Current Interpretive Data was last revised on 2017. Blood specimen (specimen) 11/10/2018 1:38 PM CDT 11/10/2018 1:41 PM CDT us Alexa Munoz MD LAB BLOOD ORDERABLES Fin al Result Performing Organization Address City/[facility]/ZIP Co de Phone Number [facility] ([place]) [address] [place] [address] [place] [address] * (ABNORMAL) CBC without differential (11/10/2018 1:38 PM CDT) WBC 9.0 3.8 - 9.9 K/cumm [facility] ([place]) Hgb 13.2 11.9 - 15.5 g/dL [facility] ([place]) Hct 37.3 35.6 - 45.5 % [facility] ([place]) Plt 420(H) 150 - 400 K/cumm [facility] ([place]) MPV 8.6(L) 9.1 - 12.3 fL [facility] ([place]) RBC 4.42 3.90 - 5.20 M/cumm [facility] ([place]) MCV 84.4 81.3 - 96.4 fL [facility] ([place]) MCH 29.9 27.1 - 33.3 pg [facility] ([place] MCHC 35.4 32.3 - 35.7 g/dL [facility] ([place] RDW CV 13.9 11.1 - 14.9 % [facility] RDW SD 42.3 35.7 - 48.1 fL [facility] ([place] NRBC abs 0.00 0.00 - 0.01 K/cumm [facility] ([place] Blood specimen (specimen) 11/10/2018 1:38 PM CDT 11/10/2018 1:41 PM CDT us Alexa Munoz MD LAB BLOOD ORDERABLES Fin al Result [facility] ([place]) [address] [facility] [place] [address] * (ABNORMAL) POCT glucose (11/10/2018 1:31 PM CDT) Glucose, POC 225(H) 71 - 98 mg/dL [facility] ([place]) Blood specimen (specimen) 11/10/2018 1:31 PM CDT 11/10/2018 1:31 PM CDT us Alexa Munoz MD LAB POCT ORDERABLES - DE VICE Final Result [facility] ([place]) [address] [place] [address] [place] [address] * Surgical pathology (11/10/2018 11:11 AM CDT) Tissue (POC, , spontaneous or missed) 11/10/2018 3:19 PM CDT Narrative [facility] - 11/14/2018 11:23 AM CDT EPIC results best viewed via link to PDF [facility] Department of Pathology [address] [place] [id number] Final Report Patient Name: ??KARINA MENJIVARKo Address: ??[facility] , ??[place], [place] [address] Gender: ??F : ??1995 (Age: 23) Service: ??Surgery Location: ??[facility] Hospital #: ??[id number] Patient Type: ??[facility] Accession # ?[id number] Taken: ??11/10/2018 Received: ??11/11/2018 Accessioned: ??11/11/2018 Reported: ??11/14/2018 Physician(s):Alexa Munoz MD Diagnosis: Uterine contents ? 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 Report Electronically Reviewed and Signed Out By ??Lex Hope M.D. ??11/14/2018 11:23:45 Specimen(s) Received: A: Products of conception Microscopic Description: Microscopic examination of multiple blocks reveals clot with embedded immature placental villi appearing avascular. ??Also present is hemorrhagic decidua. Clinical History: Missed AB. ??Products of conception. ??Suction dilation and curettage. ?? Gross Description: The specimen is submitted in a single container labeled Karina Menjivar and products of conception . ??It is an approximate 15 cc aggregate of dark red spongy tissue, red-castaneda membranous tissue resembling decidua and blood clot. ??Represented in three cassettes. ??Tato Dasilva M.D., Ph.D./Shelton López, P.A. REPORT IMAGES AND SCANNED DOCUMENTS, IF INCLUDED, ONLY VIEWABLE IN PDF VERSION OF REPORT The performance characteristics of some immunohistochemical stains, fluorescence in-situ hybridization tests and immunophenotyping by flow cytometry cited in this report (if any) were determined by the Surgical Pathology Department at [facility] as part of an ongoing ethanol quality leader program and in compliance with federally mandated [...] characteristics determined by the Surgical Pathology Department [facility]. ??It has not been cleared or approved by the [place]. [place]. Food and Drug Administration. Alexa Munoz MD LAB PATHOLOGY ORDERABLES Final Result Performing Organization Address City/State/[facility] Co de Phone Number [facility] ([place] [phone] documented in this encounter Visit Diagnoses Not on filedocumented in this encounter Administered Medications Inactive Administered Medications - up to 3 most recent administrations Medication Order MAR Action Action Date Dose Rate Site acetaminophen (TYLENOL) tablet 1,000 mg 1,000 mg, oral, Once, On Nurys 11/10/18 at 1345, For 1 dose, Pre-Op Given 11/10/2018 1:52 PM CDT 1,000 mg diphenhydrAMINE (BENADRYL) injection 50 mg 50 mg, intravenous, Administer over 2 Minutes, Once, On Nurys 11/10/18 at 1700, For 1 dose, Phase I, Indications: allergic reactionIndications:allergic reaction Given 11/10/2018 4:22 PM CDT 50 mg famotidine (PEPCID) injection 40 mg 40 mg, intravenous, Administer over 2 Minutes, Once, On Nurys 11/10/18 at 1715, For 1 dose, Phase I, Dilute to 5 ml with NS and administer IVpush over at least 2 minutes., , Indications: allergic reactionIndications:allergic reaction Given 11/10/2018 4:43 PM CDT 40 mg HYDROcodone-acetaminophen (NORCO) 5-325 mg per tablet 1 tablet 1 tablet, oral, Once, On Nurys 11/10/18 at 1745, For 1 dose, Phase I & Post-op Floor, May repeat in 30 minutes if pain score 5 or more after 1st dose., Indications: PainIndications:Pain Given 11/10/2018 7:42 PM CDT 1 tablet insulin regular (HumuLIN R, NovoLIN R) injection 6 Units 6 Units, intravenous, Once, On Nurys 11/10/18 at 1415, For 1 dose, Pre-Op Given 11/10/2018 1:47 PM CDT 6 Units midazolam (VERSED) preservative free injection 1 mg 1 mg, intravenous, Administer over 2 Minutes, Every 10 min PRN, anxiety, Starting on Nurys 11/10/18 at 1311, For 2 doses, Pre-Op Given 11/10/2018 2:05 PM CDT 1 mg Given 11/10/2018 1:52 PM CDT 1 mg sodium chloride 0.9 % irrigation As needed, Starting on Nurys 11/10/18 at 1519, Intra-Op Given 11/10/2018 3:19 PM CDT 1,000 mL Surgical Site sodium chloride 0.9% infusion 30 mL/hr, intravenous, Continuous, Starting on Nurys 11/10/18 at 1345, Pre-Op New Bag 11/10/2018 1:30 PM CDT documented in this encounter Discontinued Medications Medication Sig Discontinue Reason Start Date End Da te dextrose (D10W) 10% bolusIndications:Hypo glyemia Infuse 1-500 mL into a venous catheter as needed (blood glucose less than 70 mg/dL) Therapy completed 10/07/2018 11/09/2018 dextrose 5 % and 0.9 % NaCl (DEXTROSE 5% AND SODIUM CHLORIDE 0.9%) infusion Infuse 100 mL/hr into a venous catheter continuously Therapy completed 10/07/2018 11/09/2018 famotidine (PEPCID) 20 mg/2 mL injection Infuse 2 mL (20 mg total) into a venous catheter daily Therapy completed 10/08/2018 11/09/2018 insulin lispro (HumaLOG) 100 unit/mL injection Inject under the skin 3 (three) times a day before meals Takes 1 unit for every 8 grams of carbohydrate Therapy completed 11/09/2018 prochlorperazine (COMPAZINE) 10 mg/2 mL (5 mg/mL) injectionIndications: Nausea and Vomiting Infuse 1 mL (5 mg total) into a venous catheter every 6 (six) hours as needed for nausea or vomiting Therapy completed 10/07/2018 11/09/2018 sodium chloride 0.9% 0.9% parenteral solution 99 mL with insulin regular 100 unit/mL solution 100 UnitsIndications:Hype rglycemia Infuse 0-30 Units/hr into a venous catheter as directed Therapy completed 10/07/2018 11/09/2018 documented as of this encounter Active and Recently Administered Medications Times are shown in CDT. Scheduled Medication Order 11/08/2018 11/09/2018 11/10/2018 acetaminophen (TYLENOL) tablet 1,000 mg (COMPLETED) 1,000 mg, oral, Once, On Nurys 11/10/18 at 1345, For 1 dose, Pre-Op 1352 (Given - Provid er: Tara Francis RN) diphenhydrAMINE (BENADRYL) injection 50 mg (COMPLETED) 50 mg, intravenous, Administer over 2 Minutes, Once, On Nurys 11/10/18 at 1700, For 1 dose, Phase I, Indications: allergic reaction 1622 (Given - Provid er: Valeria Tracy RN) famotidine (PEPCID) injection 40 mg (COMPLETED) 40 mg, intravenous, Administer over 2 Minutes, Once, On Nurys 11/10/18 at 1715, For 1 dose, Phase I, Dilute to 5 ml with NS and administer IVpush over at least 2 minutes., , Indications: allergic reaction 1643 (Given - Provid er: Valeria Tracy RN) HYDROcodone-acetaminophen (NORCO) 5-325 mg per tablet 1 tablet (COMPLETED) 1 tablet, oral, Once, On Nurys 11/10/18 at 1745, For 1 dose, Phase I & Post-op Floor, May repeat in 30 minutes if pain score 5 or more after 1st dose., Indications: Pain 194 (Given - Provid er: Juana Vail RN - Comment: patient not having pain) insulin regular (HumuLIN R, NovoLIN R) injection 6 Units (COMPLETED)(Linked Group 1) 6 Units, intravenous, Once, On Nurys 11/10/18 at 1415, For 1 dose, Pre-Op 1347 (Given - Provid er: Tara Francis RN) ketorolac (TORADOL) injection 30 mg 30 mg, intravenous, Once, On Nurys 11/10/18 at 1745, For 1 dose, Phase I & Post-op Floor, Indications: Pain 1745 (Due) Continuous Medication Order 11/08/2018 11/09/2018 11/10/2018 sodium chloride 0.9% infusion 30 mL/hr, intravenous, Continuous, Starting on Nurys 11/10/18 at 1345, Pre-Op 1330 (New Bag - Prov ider: Tj Brown CRNA)1540 (Anesthesia Volume Adjustment - Provider: Tj Brown CRNA) PRN Medication Order 11/08/2018 11/09/2018 11/10/2018 midazolam (VERSED) preservative free injection 1 mg (COMPLETED) 1 mg, intravenous, Administer over 2 Minutes, Every 10 min PRN, anxiety, Starting on Nurys 11/10/18 at 1311, For 2 doses, Pre-Op 1352 (Given - Provid er: Tara Francis RN - Comment: 1 mg. q 10 min)1405 (Given - Provider: Tara Francis RN - Comment: 1 mg every 10 minutes) sodium chloride 0.9 % irrigation (CANCELED) As needed, Starting on Nurys 11/10/18 at 1519, Intra-Op 1519 (Given - Provid er: Alexa Munoz MD - Comment: cleanup) Linked Groups Order Group 1: insulin regular (HumuLIN R, NovoLIN R) injection 6 Units (COMPLETED)Jump to med 6 Units, intravenous, Once, On Nurys 11/10/18 at 1415, For 1 dose, Pre-Op And POCT glucose (CANCELED) Once (Routine), On Nurys 11/10/18 at 1333, For 1 occurrence, 1 hour after administering IV push Insulin Regular. Communicate result with MD., Pre-Op And POCT glucose (CANCELED) Once (Routine), On Nurys 7/11/19 at 1333, For 1 occurrence, 3 hours after administering IV push Insulin Regular. Communicate result with , Pre-Op documented in this encounter Orders Medications Ordered That Evan ht Not Have Been Administered Count Last Ordered Date First Ordered Date fentaNYL (SUBLIMAZE) preserv ative free injection 25 mcg 1 11/10/2018 ketorolac (TORADOL) injection 30 mg 1 11/10 meperidine (DEMEROL) preserv ative free injection 12.5 mg 1 11/10/2018 naloxone (NARCAN) 0.4 mg/mL injection 0.04-0.4 mg 1 11/10/2018 ondansetron (ZOFRAN) injection 4 mg 1 11/10 sodium chloride 0.9% flush 0.5-20 mL 1 10/31 sodium chloride 0.9% infusion 1 11/10/2018 Diet Count Last Ordered Date First Orde red Date ADULT DISCHARGE DIET 1 11/10/2018 Nursing Count Last Ordered Date First Orde red Date ACTIVITY 1 11/10/2018 DISCHARGE CALL PROVIDER 1 11/10/2018 DISCHARGE INSTRUCTIONS 11/10/2018 FOLLOW UP WITH PROVIDER 1 11/10/2018 documented in this encounter 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
--- OUTSIDE RECORDS SUMMARY | 2024-05-10 18:41 | XMS_ITS | Encounter Summary ---
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
--- OUTSIDE RECORDS SUMMARY | 2024-05-10 18:41 | XMS_ITS | Encounter Summary ---
Author Organization [facility] Address [address] [place] [address] Care Team Providers Care Bunch Maker Name Role Phone Carrie Joseph Primary Care Provider + Reason for Visit * Reason Comments Vomiting Encounter Details Date Type Department Care Team (Latest Contact Info) Description 02/10/2019 10:50 AM CDT - 02/13/2019 6:23 PM CDT Hospital Encounter [facility] [address] [place] [address] Pato Haney MD 1 [facility] [place] [address] Sanjuanita Enamorado MD 1 [facility] [address] [place] [id number] Diabetic ketoacidosis without coma associated with type 1 diabetes mellitus (CMS/HCC) (Primary Dx); Non-intractable vomiting with nausea, unspecified vomiting type Discharge Disposition: Left Against Medical Advice Social [...] on file Legal 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 Gender Identity Not on file Sexual Orientation Not on file documented as of this encounter Last Filed Vital Signs Vital Sign Reading Time Taken Comments Blood Pressure 125/75 02/13/2019 5:23 PM CDT Pulse 103 02/13/2019 5:23 PM CDT Temperature 36.4 ??C (97.6 ??F) 02/13/2019 5:23 PM CD T Respiratory Rate 18 02/13/2019 5:23 PM CDT Oxygen Saturation 95% 02/13/2019 5:23 PM CDT Inhaled Oxygen Concentration - - Weight 56.7 kg (125 lb) 02/10/2019 11:08 AM CDT Height 165.1 cm (5' 5 ) 02/13/2019 9:34 AM CDT Body Mass Index 20.8 02/10/2019 11:08 AM CDT documented in this encounter Discharge Diagnoses Diagnosis Type 1 diabetes mellitus with ketoacidosis with coma (HCC) - TYPE 1 DIABETES MELLITUS WITH KETOACIDOSIS WITH COMA Hematemesis - HEMATEMESIS Fever, unspecified - FEVER, UNSPECIFIED Elevated white blood cell count, unspecified - ELEVATED WHITE BLOOD CELL COUNT, UNSPECIFIED 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 (HCC) - TYPE 1 DIABETES MELLITUS WITH DIABETIC AUTONOMIC (POLY)NEUROPATHY Other disorders of phosphorus metabolism - OTHER DISORDERS OF PHOSPHORUS METABOLISM Volume depletion, unspecified - VOLUME DEPLETION, UNSPECIFIED Major depressive disorder, single episode, unspecified - MAJOR DEPRESSIVE DISORDER, SINGLE EPISODE, UNSPECIFIED Gastroparesis - GASTROPARESIS 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 Hypotension, unspecified - HYPOTENSION, UNSPECIFIED Tachycardia, unspecified - TACHYCARDIA, UNSPECIFIED Other fecal abnormalities - OTHER FECAL ABNORMALITIES documented in this encounter Discharge Summaries * Sanjuanita Enamorado MD - 02/13/2019 2:57 PM CDT General Medicine Daily Progress SUBJECTIVE Chief complaint of nausea, vomiting, DKA Interval History: Symptoms improved, will start clear liquids, further workup pending with EGD OBJECTIVE Vitals: 24hr Min/Max: Temp Min: 37.1 ??C (98.8 ??F) Max: 38.1 ??C (100.5 ??F) Pulse Min: 74 Max: 124 BP Min: 101/62 Max: 141/97 Resp Min: 9 Max: 28 SpO2 Min: 97 % Max: 100 % Most Recent : Vitals: 02/13/19 1400 BP: 136/96 Pulse: 92 Resp: 13 Temp: SpO2: 100% I/O last 2 completed shifts: In: 2792 [I.V.:2792] Out: 3200 [Urine:3200] I/O this shift: In: - Out: 1000 [Urine:1000] Physical Exam: Eyes: EOMI, ZORAIDA, sclare non icteric Neck: supple, no nuchal ridigity, no gross carotid bruits appreciated Pharynx: No gross oral lesion, tongue midline, mucosa moist Lungs CTA Heart: [id number], no murmur gallop, no friction rub Abd: +BS, Non Tender, Non distended, No gross hepatomegaly Lower Ext: No gross edema Neuro: No new gross deficits appreciated Musculoskeletal: no gross joint erythema, edema, tenderness Skin: No new change Lab/Current Medication Review: Recent Results (from the past 24 hour(s)) POCT glucose Collection Time: 02/12/19 3:10 PM Result Value Ref Range Glucose, POC 201 (H) 71 - 98 mg/dL POCT glucose Collection Time: 02/12/19 4:10 PM Result Value Ref Range Glucose, POC 234 (H) 71 - 98 mg/dL POCT glucose Collection Time: 02/12/19 5:16 PM Result Value Ref Range Glucose, POC 201 (H) 71 - 98 mg/dL POCT glucose Collection Time: 02/12/19 6:18 PM Result Value Ref Range Glucose, POC 137 (H) 71 - 98 mg/dL POCT glucose Collection Time: 02/12/19 7:31 PM Result Value Ref Range Glucose, POC 101 (H) 71 - 98 mg/dL Basic metabolic panel Collection Time: 02/12/19 7:46 PM Result Value Ref Range Sodium 138 135 - 145 mmol/L Potassium, pl 3.0 (Critical) 3.3 - 4.9 mmol/L Chloride 102 97 - 110 mmol/L CO2 21 (L) 22 - 32 mmol/L Anion gap 15 2 - 15 mmol/L BUN 5 (L) 8 - 25 mg/dL Creatinine 0.34 (L) 0.60 - 1.10 mg/dL Glucose 106 70 - 199 mg/dL Calcium 8.3 (L) 8.5 - 10.3 mg/dL Magnesium Collection Time: 02/12/19 7:46 PM Result Value Ref Range Magnesium 1.9 1.6 - 2.4 mg/dL Phosphorus Collection Time: 02/12/19 7:46 PM Result Value Ref Range Phosphorus, pl 1.9 (L) 2.3 - 4.5 mg/dL eGFR Collection Time: 02/12/19 7:46 PM Result Value Ref Range GFR 156 mL/min/1.73 m2 POCT glucose Collection Time: 02/12/19 9:46 PM Result Value Ref Range Glucose, POC 117 (H) 71 - 98 mg/dL POCT glucose Collection Time: 02/13/19 12:01 AM Result Value Ref Range Glucose, POC 129 (H) 71 - 98 mg/dL Basic metabolic panel Collection Time: 02/13/19 12:23 AM Result Value Ref Range Sodium 137 135 - 145 mmol/L Potassium, pl 3.3 3.3 - 4.9 mmol/L Chloride 99 97 - 110 mmol/L CO2 22 22 - 32 mmol/L Anion gap 16 (H) 2 - 15 mmol/L BUN 5 (L) 8 - 25 mg/dL Creatinine 0.31 (L) 0.60 - 1.10 mg/dL Glucose 138 70 - 199 mg/dL Calcium 8.8 8.5 - 10.3 mg/dL Magnesium Collection Time: 02/13/19 12:23 AM Result Value Ref Range Magnesium 1.9 1.6 - 2.4 mg/dL Phosphorus Collection Time: 02/13/19 12:23 AM Result Value Ref Range Phosphorus, pl 2.1 (L) 2.3 - 4.5 mg/dL eGFR Collection Time: 02/13/19 12:23 AM Result Value Ref Range GFR 161 mL/min/1.73 m2 POCT glucose Collection Time: 02/13/19 1:35 AM Result Value Ref Range Glucose, POC 147 (H) 71 - 98 mg/dL POCT glucose Collection Time: 02/13/19 3:00 AM Result Value Ref Range Glucose, POC 139 (H) 71 - 98 mg/dL Basic metabolic panel Collection Time: 02/13/19 4:32 AM Result Value Ref Range Sodium 134 (L) 135 - 145 mmol/L Potassium, pl 3.2 (L) 3.3 - 4.9 mmol/L Chloride 97 97 - 110 mmol/L CO2 22 22 - 32 mmol/L Anion gap 15 2 - 15 mmol/L BUN 4 (L) 8 - 25 mg/dL Creatinine 0.31 (L) 0.60 - 1.10 mg/dL Glucose 162 70 - 199 mg/dL Calcium 8.7 8.5 - 10.3 mg/dL Magnesium Collection Time: 02/13/19 4:32 AM Result Value Ref Range Magnesium 1.9 1.6 - 2.4 mg/dL Phosphorus Collection Time: 02/13/19 4:32 AM Result Value Ref Range Phosphorus, pl 1.8 (L) 2.3 - 4.5 mg/dL eGFR Collection Time: 02/13/19 4:32 AM Result Value Ref Range GFR 161 mL/min/1.73 m2 POCT glucose Collection Time: 02/13/19 4:37 AM Result Value Ref Range Glucose, POC 142 (H) 71 - 98 mg/dL POCT glucose Collection Time: 02/13/19 6:23 AM Result Value Ref Range Glucose, POC 148 (H) 71 - 98 mg/dL POCT glucose Collection Time: 02/13/19 7:53 AM Result Value Ref Range Glucose, POC 140 (H) 71 - 98 mg/dL Basic metabolic panel Collection Time: 02/13/19 8:31 AM Result Value Ref Range Sodium 135 135 - 145 mmol/L Potassium, pl 2.9 (Critical) 3.3 - 4.9 mmol/L Chloride 97 97 - 110 mmol/L CO2 25 22 - 32 mmol/L Anion gap 13 2 - 15 mmol/L BUN 3 (L) 8 - 25 mg/dL Creatinine 0.26 (L) 0.60 - 1.10 mg/dL Glucose 159 70 - 199 mg/dL Calcium 8.6 8.5 - 10.3 mg/dL Magnesium Collection Time: 02/13/19 8:31 AM Result Value Ref Range Magnesium 1.8 1.6 - 2.4 mg/dL Phosphorus Collection Time: 02/13/19 8:31 AM Result Value Ref Range Phosphorus, pl 2.1 (L) 2.3 - 4.5 mg/dL eGFR Collection Time: 02/13/19 8:31 AM Result Value Ref Range GFR 170 mL/min/1.73 m2 POCT glucose Collection Time: 02/13/19 8:49 AM Result Value Ref Range Glucose, POC 136 (H) 71 - 98 mg/dL POCT glucose Collection Time: 02/13/19 10:22 AM [...] Value Ref Range GFR 156 mL/min/1.73 m2 Current Facility-Administered Medications Medication Dose Route Frequency Provider Last Rate Last Dose ??? cefTRIAXone (ROCEPHIN) 1,000 mg/10 mL in sterile water (premix) 1,000 mg 1,000 mg intravenous Q24H BOB Enamorado MD 120 mL/hr at 02/13/19 0857 1,000 mg at 02/13/19 0857 ??? dextrose (D10W) 10% bolus 1-500 mL 1-500 mL intravenous PRN Gio Sewell MD ??? dextrose 5% and sodium chloride 0.45% infusion (premix) 100 mL/hr intravenous Continuous Gio Sewell MD 100 mL/hr at 02/13/19 1054 100 mL/hr at 02/13/19 1054 ??? enoxaparin (LOVENOX) syringe 40 mg 40 mg subcutaneous Daily-2100 Gio Sewell MD ??? influenza quadrivalent [id number] (FLULAVAL,FLUARIX,FLUZONE) 60 mcg (15 mcg x 4)/0.5 mL vaccine (STANDARD age 6 months and up) 0.5 mL 0.5 mL intramuscular During hospitalization Gio Sewell MD ??? insulin regular (HumuLIN R, NovoLIN R) 100 Units in sodium chloride 0.9% 100 mL (1 Units/mL) infusion 0-30 Units/hr intravenous Titrated Gio Sewell MD 1.6 mL/hr at 02/13/19 1240 1.6 Units/hr at 02/13/19 1240 ??? insulin regular bolus from bag 1-10 Units 1-10 Units intravenous PRN Gio Sewell MD ??? metoclopramide (REGLAN) injection 5 mg 5 mg intravenous Q8H [facility] Sanjuanita Enamorado MD ??? ondansetron (ZOFRAN) injection 4 mg 4 mg intravenous Q6H PRN Gio Sewell MD 4 mg at 02/12/19 1444 ??? pantoprazole (PROTONIX) injection 40 mg 40 mg intravenous Q24H [facility] Gio Sewell MD 40 mg at1 0857 ??? potassium chloride ER (KLOR-CON) extended release tablet 40 mEq 40 mEq oral Once Sanjuanita Enamorado MD ??? prochlorperazine (COMPAZINE) injection 5 mg 5 mg intravenous Q6H PRN Sanjuanita Enamorado MD 5 mg at 02/12/19 1513 ??? sodium chloride 0.9% flush 5-10 mL 5-10 mL intra-catheter Q8H [facility] Sanjuanita Enamorado MD 10 mL at 02/13/19 0813 ??? sodium chloride 0.9% flush 5-10 mL 5-10 mL intra-catheter PRN Sanjuanita Enamorado MD A/P: 1. Diabetic ketoacidosis without coma, present on admission, the patient was on insulin drip, in ICU, currently anion gap is closed, patient is kept NPO for significant nausea and emesis. Will discontinue IV insulin drip, will start basal and bolus insulin, start insulin sliding scale mid does, start a clear liquid diet and starting Reglan IV t.i.d.. Will move her out of ICU. 2. Persistent nausea and vomiting. Today patient does not have emesis or nausea. She was kept NPO for couple of days. Were doing proton pump inhibitors, IV fluids, symptomatic treatment with Zofran, Compazine. Yesterday I offered her Reglan but she states that it is not working. I think cut this ismost likely diabetic gastroparesis. Starting Reglan 5 mg IV t.i.d.. Continue proton pump inhibitor IV. Tomorrow patient is going to have upper endoscopy. Will keep NPO after midnight. Dr. Phillips is consulted. 3. Persistent hypopotassemia, we have been replacing by ID V route. Will give her 40 mEq of potassium chloride p.o. Now and 40 minutes current IV K rider. Patient received potassium phosphate IV rider today. 4. Hypophosphatemia, potassium phosphate IV was given. 5. Leukocytosis, patient was empirically placed on Rocephin. The blood work is still pending. Laboratory has problem releasing results today. 6. DVT prophylaxis, she will be on Lovenox shots. 7. Moving patient out of ICU. Hoping that she will be able to tolerate clear liquids. High complexity Spent 35 minutes coordinating the care I spent a total [id number] of which more than 50% of the time was spent in counseling and coordination of care. This time included: Assessing, changing all the orders, during transfer orders, communicating with the nurse, completing note Principal Problem: Diabetic ketoacidosis without coma associated with type 1 diabetes mellitus (CMS/HCC) Active Problems: Lactic acidosis Depression Hematemesis Addendum Later today Nurse called me and stated that patient wants to leave against medical advise. I recommended her to stay and have endoscopy done and make sure we are managing blood sugars and she is ableto eat before she leaves. Patient did not care about our recommendation. Patient left AMA. Sanjuanita Enamorado MD 02/13/2019 2:57 PM documented in this encounter Medications at Time of Discharge insulin lispro (HumaLOG) 100 unit/mL injection Inject under the skin 3 (three) times a day before meals Uses per sliding scale 1 unit per every 7-8 grams of carb max of 50 units per day doxycycline (VIBRAMYCIN) 100 mg capsule Take 1 tablet/capsule (100 mg total) by mouth 2 (two) times a day 6 tablet/capsul e 11/10/2018 9 glucagon 1 mg kitIndications:Hypo glycemia Inject 1 mL (1 mg total) into [...] 30 tablet 2 11/10/2018 9 insulin glargine (LANTUS,BASAGLAR) 100 unit/mL (3 mL) insulin pen Inject 14 Units under the skin daily 1 methylergonovine (METHERGINE) 0.2 mg tablet Take 1 tablet (0.2 mg total) by mouth 3 (three) times a day 9 tablet 11/10/2018 9 metoclopramide (REGLAN) 5 mg tabletIndications:D iabetic Gastroparesis [...] documented in this encounter Progress Notes * Ragini Sy, DIANDRA - 02/13/2019 9:41 AM CDT Nutrition Assessment Reason for Assessment: Initial Nutrition Assessment Encounter Date: 02/13/19 10:00 AM Nutrition Assessment and Plan: Patient is a 23 y.o. female. Admit Dx: DIABETIC KETOACIDOSIS WITHOUT COMA ASSOCIATED WITH TYPE 1 DIABETES MELLITUS (CMS/HCC) (PRIMARY ENCOUNTER DIAGNOSIS) NON-INTRACTABLE VOMITING WITH NAUSEA, UNSPECIFIED VOMITING TYPE. Admitted on 02/10/2019, current LOS is 3 days. Nutrition Screen What diet do you follow at home?: diabetic Have You Recently Lost Weight Without Trying?: No Poor Oral Intake for Four or More Days Prior to Admission: No Current diet order: NPO Diet Sips with meds Pt intake is inadequate. PO intakes: NPO. Wt Readings from Last 10 Encounters: 02/10/19 56.7 kg (125 lb) 11/10/18 59.3 kg (130 lb 11.7 oz) 11/08/18 56.7 kg (125 lb) 10/07/18 63.1 kg (139 lb 1.8 oz) 05/26/18 55.4 kg (122 lb 2.2 oz) 03/31/18 53 kg (116 lb 13.5 oz) 01/02/18 51.6 kg (113 lb 12.1 oz) 12/07/17 53.1 kg (117 lb 1 oz) 08/21/14 57.2 kg (126 lb 1.7 oz) (54 %, Z= 0.09)* 08/14/13 58.3 kg (128 lb 8.5 oz) (62 %, Z= 0.31)* * Growth percentiles are based on CDC (Girls, 2-20 Years) data. Nutrition Diagnosis 1: (Nausea/Vomiting. DKA. NPO with sips for meds. ) Related to: Vomiting, Nausea Evidenced by: Physical finding Interventions: Encouragement Monitoring and Evaluation: Blood glucoses, Diet advancement, Discharge plans, Labs, Plan of care ?? Goals: Advance to oral intake as medically able Estimated needs: ?? Total Kcal/kg Estimated Needs : 1530.9 based on Kcal/k. Type of Weight Used for Estimated Kcals: Current ?? MSJ Total Energy Needs: 1593.6 kcal using Activity Factor: 1.2 ?? [facility] Total Energy Needs + Fever Factor: 1593.6 ?? Total Protein Estimated Needs (gm): 56.7 Protein Needs Based on g/k.0 Type of Weight Used for Estimated Protein : Current. ?? Total Fluid Estimated Needs: 1984.5 Fluid Needs Based on : 35 ml/kg. Objective Anthropometrics Weight: 56.7 kg (125 lb) Admission Weight : 56.7 kg Weight Change: -2.60 kg (-5.73 lbs) IBW/kg (Calculated) : 56.7 kg Height: 165.1 cm (5' 5 ) Weight in (lb) to have BMI = 25: 149.9 BMI (Calculated): 20.8 100% IBW 3 Day I/O Summary 02/11 1900 - 02/13 659 In: 5598 [I.V.:5598] Out: 4300 [Urine:4300] Temp: 37.3 ??C (99.2 ??F) Past Medical History: Diagnosis Date ??? Depression ??? Diabetes mellitus (CMS/HCC) ??? HX OTHER MEDICAL 2011 Diabetes mellitus, type 1 ??? Miscarriage Medications and Lab Review: Scheduled Meds: cefTRIAXone, 1,000 mg, intravenous, Q24H BOB enoxaparin, 40 mg, subcutaneous, Daily-2100 pantoprazole, 40 mg, intravenous, Q24H BOB potassium phosphate, 23 mmol, intravenous, Once sodium chloride 0.9%, 5-10 mL, intra-catheter, Q8H BOB Continuous Infusions: dextrose 5% and sodium chloride 0.45%, 100 mL/hr, Last Rate: 100 mL/hr (02/12/19 0630) insulin regular, 0-30 Units/hr, Last Rate: 1.5 Units/hr (02/13/19 0851) Sodium Date Value Ref Range Status 02/13/2019 135 135 - 145 mmol/L Final Potassium, pl Date Value Ref Range Status 02/13/2019 2.9 (Critical) 3.3 - 4.9 mmol/L Final Comment: Critical Result called to and read back by Kailyn Fritz/ICU, DATE: 2019-02-13 09:54:39 BY: Milan BUN Date Value Ref Range Status 02/13/2019 3 (L) 8 - 25 mg/dL Final Creatinine Date Value Ref Range Status 02/13/2019 0.26 (L) 0.60 - 1.10 mg/dL Final Phosphorus, pl Date Value Ref Range Status 02/13/2019 2.1 (L) 2.3 - 4.5 mg/dL Final Albumin Date Value Ref Range Status 02/10/2019 4.4 3.5 - 5.0 g/dL Final Magnesium Date Value Ref Range Status 02/13/2019 1.8 1.6 - 2.4 mg/dL Final Calcium Date Value Ref Range Status 02/13/2019 8.6 8.5 - 10.3 mg/dL Final Lab Results Component Value Date HGBA1C 9.4 (H) 10/05/2018 POC Glucose: Results for KARINA MENJIVAR ( ) as of 02/13/2019 09:32 Ref. Range 02/13/2019 04:32 02/13/2019 04:37 02/13/2019 06:23 02/13/2019 07:53 02/13/2019 08:49 Glucose Latest Ref Range: 70 - 199 mg/dL 162 Glucose, POC Latest Ref Range: 71 - 98 mg/dL 142 (H) 148 (H) 140 (H) 136 (H) Nursing Assessment: Bowel Sounds (All Quadrants): Active Emesis Assessment Emesis Color/Appearance: Green Teodoro Scale Score: 21 Nutrition Follow-Up : 02/15/[address],LDN * Pascual Espinal [facility] - 02/13/2019 6:56 AM CDT Electrolyte monitoring performed by pharmacy on labs from 02/13/19 04:32, Na+=134 K+=3.2 Mg+=1.9 Phos=1.8 Potassium phosphate 23 mmol ivpb run X 1 dose per pharmacy electrolyte replacement protocol for potassium +=3.2 and phosphorous = 1.8 on 02/13/19 replacement ordered. Pharmacy will continue to follow daily. * Sanjuanita Enamorado MD - 02/12/2019 9:22 AM CDT General Medicine Daily Progress SUBJECTIVE Chief complaint of persistent nausea, DKA, elevated anion gap, a unable to tolerate anything p.o. Interval History: Patient's condition did not improve since admission except for blood sugar was under control before she lost her IV site. Will get midline. Giving normal saline bolus OBJECTIVE Vitals: 24hr Min/Max: Temp Min: 37.1 ??C (98.8 ??F) Max: 37.9 ??C (100.3 ??F) Pulse Min: 85 Max: 135 BP Min: 85/50 Max: 150/93 Resp Min: 16 Max: 22 SpO2 Min: 97 % Max: 100 % Most Recent : Vitals: 02/12/19 0900 BP: 98/56 Pulse: 121 Resp: 20 Temp: SpO2: 98% I/O last 2 completed shifts: In: 2806 [I.V.:2806] Out: 2100 [Urine:2100] I/O this shift: In: 87 [I.V.:87] Out: - Physical Exam: Eyes: EOMI, ZORAIDA, sclare non icteric Neck: supple, no nuchal ridigity, no gross carotid bruits appreciated Pharynx: No gross oral lesion, tongue midline, mucosa moist Lungs CTA Heart: [id number], tachycardic, no murmur or gallop, no friction rub Abd: +BS, Non Tender, Non distended, No gross hepatomegaly Lower Ext: No gross edema Neuro: No new gross deficits appreciated Musculoskeletal: no gross joint erythema, edema, tenderness Skin: No new change Lab/Current Medication Review: Recent Results (from the past 24 hour(s)) POCT glucose Collection Time: 02/11/19 10:06 AM Result Value Ref Range Glucose, POC 186 (H) 71 - 98 mg/dL Drugs of Abuse Screen, Urine without Confirmation Collection Time: 02/11/19 10:09 AM Result Value Ref Range Amphetamine, ur [...] Not Detected CutOff 25 ng/mL Urine Creatinine 67 mg/dL POCT glucose Collection Time: 02/11/19 11:34 AM Result Value Ref Range Glucose, POC 140 (H) 71 - 98 mg/dL POCT glucose Collection Time: 02/11/19 1:00 PM Result Value Ref Range Glucose, POC 109 (H) 71 - 98 mg/dL POCT glucose Collection Time: 02/11/19 2:13 PM Result Value Ref Range Glucose, POC 128 (H) 71 - 98 mg/dL POCT glucose Collection Time: 02/11/19 3:02 PM Result Value Ref Range Glucose, POC 155 (H) 71 - 98 mg/dL POCT glucose Collection Time: 02/11/19 4:03 PM Result Value Ref Range Glucose, POC 163 (H) 71 - 98 mg/dL POCT glucose Collection Time: 02/11/19 5:28 PM Result Value Ref Range Glucose, POC 153 (H) 71 - 98 mg/dL POCT glucose Collection Time: 02/11/19 6:44 PM Result Value Ref Range Glucose, POC 161 (H) 71 - 98 mg/dL POCT glucose Collection Time: 02/11/19 9:06 PM Result Value Ref Range Glucose, POC 163 (H) 71 - 98 mg/dL Basic metabolic panel Collection Time: 02/11/19 11:06 PM Result Value Ref Range Sodium 136 135 - 145 mmol/L Potassium, pl 3.7 3.3 - 4.9 mmol/L Chloride 101 97 - 110 mmol/L CO2 20 (L) 22 - 32 mmol/L Anion gap 15 2 - 15 mmol/L BUN 6 (L) 8 - 25 mg/dL Creatinine 0.32 (L) 0.60 - 1.10 mg/dL Glucose 195 70 - 199 mg/dL Calcium 8.5 8.5 - 10.3 mg/dL Magnesium Collection Time: 02/11/19 11:06 PM Result Value Ref Range Magnesium 1.8 1.6 - 2.4 mg/dL Phosphorus Collection Time: 02/11/19 11:06 PM Result Value Ref Range Phosphorus, pl 1.8 (L) 2.3 - 4.5 mg/dL eGFR Collection Time: 02/11/19 11:06 PM Result Value Ref Range GFR 159 mL/min/1.73 m2 POCT glucose Collection Time: 02/11/19 11:19 PM Result Value Ref Range Glucose, POC 177 (H) 71 - 98 mg/dL POCT glucose Collection Time: 02/12/19 1:04 AM Result Value Ref Range Glucose, POC 193 (H) 71 - 98 mg/dL POCT glucose Collection Time: 02/12/19 3:06 AM Result Value Ref Range Glucose, POC 189 (H) 71 - 98 mg/dL Basic metabolic panel Collection Time: 02/12/19 4:27 AM Result Value Ref Range Sodium 133 (L) 135 - 145 mmol/L Potassium, pl 3.8 3.3 - 4.9 mmol/L Chloride 99 97 - 110 mmol/L CO2 20 (L) 22 - 32 mmol/L Anion gap 14 2 - 15 mmol/L BUN 6 (L) 8 - 25 mg/dL Creatinine 0.32 (L) 0.60 - 1.10 mg/dL Glucose 183 70 - 199 mg/dL Calcium 8.7 8.5 - 10.3 mg/dL Magnesium Collection Time: 02/12/19 4:27 AM Result Value Ref Range Magnesium 1.9 1.6 - 2.4 mg/dL Phosphorus Collection Time: 02/12/19 4:27 AM Result Value Ref Range Phosphorus, pl 2.2 (L) 2.3 - 4.5 mg/dL eGFR Collection Time: 02/12/19 4:27 AM Result Value Ref Range GFR 159 mL/min/1.73 m2 POCT glucose Collection Time: 02/12/19 6:28 AM Result Value Ref Range Glucose, POC 273 (H) 71 - 98 mg/dL Basic metabolic panel Collection Time: 02/12/19 7:07 AM Result Value Ref Range Sodium 135 135 - 145 mmol/L Potassium, pl 3.4 3.3 - 4.9 mmol/L Chloride 97 97 - 110 mmol/L CO2 16 (L) 22 - 32 mmol/L Anion gap 22 (H) 2 - 15 mmol/L BUN 8 8 - 25 mg/dL Creatinine 0.32 (L) 0.60 - 1.10 mg/dL Glucose 281 (H) 70 - 199 mg/dL Calcium 8.6 8.5 - 10.3 mg/dL Magnesium Collection Time: 02/12/19 7:07 AM Result Value Ref Range Magnesium 1.9 1.6 - 2.4 mg/dL Phosphorus Collection Time: 02/12/19 7:07 AM Result Value Ref Range Phosphorus, pl 2.1 (L) 2.3 - 4.5 mg/dL CBC with auto differential Collection Time: 02/12/19 7:07 AM Result Value Ref Range WBC 12.7 (H) 3.8 - 9.9 K/cumm Hgb 14.3 11.9 - 15.5 g/dL Hct 41.3 35.6 - 45.5 % Plt 346 150 - 400 K/cumm MPV 9.4 9.1 - 12.3 fL RBC 5.12 3.90 - 5.20 M/cumm MCV 80.7 (L) 81.3 - 96.4 fL MCH 27.9 27.1 - 33.3 pg MCHC 34.6 32.3 - 35.7 g/dL RDW CV 15.2 (H) 11.1 - 14.9 % RDW SD 44.8 35.7 - 48.1 fL NRBC abs 0.00 0.00 - 0.01 K/cumm Differential, auto Collection Time: 02/12/19 7:07 AM Result Value Ref Range Neutrophil abs 10.7 (H) 1.7 - 6.5 K/cumm Imm gran abs 0.1 0.0 - 0.1 K/cumm Lymphocyte abs 1.1 0.8 - 3.3 K/cumm Monocyte abs 0.8 0.2 - 0.8 K/cumm Eosinophil abs 0.0 0.0 - 0.5 K/cumm Basophil abs 0.0 0.0 - 0.1 K/cumm Neutrophil pct 84.0 % Imm gran pct 0.5 % Lymphocyte pct 9.0 % Monocyte pct 6.1 % Eosinophil pct 0.2 % Basophil pct 0.2 % eGFR Collection Time: 02/12/19 7:07 AM Result Value Ref Range GFR 159 mL/min/1.73 m2 POCT glucose Collection Time: 02/12/19 7:48 AM Result Value Ref Range Glucose, POC 188 (H) 71 - 98 mg/dL POCT glucose Collection Time: 02/12/19 8:49 AM Result Value Ref Range Glucose, POC 171 (H) 71 - 98 mg/dL Current Facility-Administered Medications Medication Dose Route Frequency Provider Last Rate Last Dose ??? dextrose (D10W) 10% bolus 1-500 mL 1-500 mL intravenous PRN Gio Sewell MD ??? dextrose 5% and sodium chloride 0.45% infusion (premix) 100 mL/hr intravenous Continuous Gio Sewell MD 100 mL/hr at 02/12/19 0630 100 mL/hr at 02/12/19 0630 ??? enoxaparin (LOVENOX) syringe 40 mg 40 mg subcutaneous Daily-2100 Gio Sewell MD ??? influenza quadrivalent [id number] (FLULAVAL,FLUARIX,FLUZONE) 60 mcg (15 mcg x 4)/0.5 mL vaccine (STANDARD age 6 months and up) 0.5 mL 0.5 mL intramuscular During hospitalization Gio Sewell MD ??? insulin regular (HumuLIN R, NovoLIN R) 100 Units in sodium chloride 0.9% 100 mL (1 Units/mL) infusion 0-30 Units/hr intravenous Titrated Gio Sewell MD 3.3 mL/hr at 02/12/19 0850 3.3 Units/hr at 02/12/19 0850 ??? insulin regular bolus from bag 1-10 Units 1-10 Units intravenous PRN Gio Sewell MD ??? ondansetron (ZOFRAN) injection 4 mg 4 mg intravenous Q6H PRN Gio Sewell MD 4 mg at 02/11/19 2320 ??? pantoprazole (PROTONIX) injection 40 mg 40 mg intravenous Q24H BOB Gio Sewell MD 40 mg at1 0753 ??? prochlorperazine (COMPAZINE) injection 5 mg 5 mg intravenous Q6H PRN Sanjuanita Enamorado MD 5 mg at 02/12/19 0753 A/P: 1. DKA, patient continues to be unstable. Blood sugar is back again to 181 due to the fact that patient lost her IV and she was very hard stick and did not have insulin drip for 2 hours only. Of ordering midline. Continue GlucoStabilizer protocol. Patient continues to have persistent nausea. Anion gap is elevated to 22 today. 2. Hypophosphatemia, will give sodium phosphate IV 20 mEq. 3. Persistent nausea, patient has Compazine on board, Zofran on board, sometimes she refuses to take anti emetics. No p.o. Intake whatsoever since admission. Denies having any abdominal pain or stomach pain, no hematemesis. Drug screen was negative. Will get GI consultation. Continue Protonix IV b.i.d. Along with antiemetics IV. 4. Hypotension and tachycardia. Blood pressure is 85/50, heart rate is 125. The this is secondary to volume depletion. Giving 500 mL of normal saline bolus. Will continue other IV fluids per GlucoStabilizer protocol. Will repeat metabolic panel and CBC again. 5. Low-grade fever, leukocytosis, starting empiric treatment with Rocephin. 6. DVT prophylaxis, continue Lovenox shots. High complexity Spent 35 minutes I spent a total of 35 minutes of which more than 50% of the time was spent in counseling and coordination of care. This time included: Examining patient, changing orders, communicating, completing note Principal Problem: Diabetic ketoacidosis with coma associated with type 1 diabetes mellitus ([facility]) Active Problems: Lactic acidosis Depression Hematemesis Sanjuanita Enamorado MD 02/12/2019 9:22 AM * Sanjuanita Enamorado MD - 02/11/2019 8:43 AM CDT General Medicine Daily Progress SUBJECTIVE Chief complaint of persistent nausea, DKA Interval History: Patient denies having any bloody emesis or bloody stools before coming to hospital. Continues to be nauseated despite nausea medications. I offered her different type of nausea medicine like Reglan or Compazine. She states that they do not work. OBJECTIVE Vitals: 24hr Min/Max: Temp Min: 36.3 ??C (97.4 ??F) Max: 37.2 ??C (99 ??F) Pulse Min: 78 Max: 114 BP Min: 94/56 Max: 150/101 Resp Min: 11 Max: 23 SpO2 Min: 94 % Max: 100 % Most Recent : Vitals: 02/11/19 0700 BP: 149/89 Pulse: 102 Resp: 16 Temp: SpO2: 100% I/O last 2 completed shifts: In: 2940 [I.V.:1640; IV Piggyback:1300] Out: 1974 [Urine:1975] No intake/output data recorded. Physical Exam: Eyes: EOMI, ZORAIDA, sclare non icteric Neck: supple, no nuchal ridigity, no gross carotid bruits appreciated Pharynx: No gross oral lesion, tongue midline, mucosa moist Lungs CTA Heart: [id number], mildly tachycardic, no murmur or gallop. No friction rub Abd: +BS, Non Tender, Non distended, No gross hepatomegaly Lower Ext: No gross edema Neuro: No new gross deficits appreciated Musculoskeletal: no gross joint erythema, edema, tenderness Skin: No new changes Lab/Current Medication Review: Recent Results (from the past 24 hour(s)) CBC with auto differential Collection Time: 02/10/19 11:41 AM Result Value Ref Range WBC 8.0 3.8 - 9.9 K/cumm Hgb 14.2 11.9 - 15.5 g/dL Hct 42.2 35.6 - 45.5 % Plt 295 150 - 400 K/cumm MPV 10.7 9.1 - 12.3 fL RBC 5.16 3.90 - 5.20 M/cumm MCV 81.8 81.3 - 96.4 fL MCH 27.5 27.1 - 33.3 pg MCHC 33.6 32.3 - 35.7 g/dL RDW CV 15.3 (H) 11.1 - 14.9 % RDW SD 45.9 35.7 - 48.1 fL NRBC abs 0.00 0.00 - 0.01 K/cumm Comprehensive metabolic panel Collection Time: 02/10/19 11:41 AM Result Value Ref Range Sodium 139 135 - 145 mmol/L Potassium, pl 3.7 3.3 - 4.9 mmol/L Chloride 97 97 - 110 mmol/L CO2 21 (L) 22 - 32 mmol/L Anion gap 21 (H) 2 - 15 mmol/L BUN 16 8 - 25 mg/dL Creatinine 0.58 (L) 0.60 - 1.10 mg/dL Glucose 348 (H) 70 - 199 mg/dL Calcium 9.3 8.5 - 10.3 mg/dL Bilirubin, total 0.3 0.1 - 1.2 mg/dL Protein, pl 7.0 6.5 - 8.5 g/dL Albumin 4.4 3.5 - 5.0 g/dL Alk phos 71 40 - 130 Units/L ALT 12 7 - 45 Units/L AST 21 10 - 45 Units/L Blood gas, venous Collection Time: 02/10/19 11:41 AM Result Value Ref Range pH, Venous 7.36 7.32 - 7.43 PCO2, Venous 38 (L) 40 - 50 mmHg PO2, Venous 74 mmHg HCO3 Venous, Calculated 21 20 - 30 mmol/L BE, venous -4 mmol/L Lipase Collection Time: 02/10/19 11:41 AM Result Value Ref Range Lipase 12 10 - 99 Units/L Sepsis Lactate w/ Reflex Collection Time: 02/10/19 11:41 AM Result Value Ref Range Sepsis Lactate 2.9 (H) 0.7 - 2.0 mmol/L Differential, auto Collection Time: 02/10/19 11:41 AM Result Value Ref Range Neutrophil abs 6.1 1.7 - 6.5 K/cumm Imm gran abs 0.0 0.0 - 0.1 K/cumm Lymphocyte abs 1.3 0.8 - 3.3 K/cumm Monocyte abs 0.5 0.2 - 0.8 K/cumm Eosinophil abs 0.0 0.0 - 0.5 K/cumm Basophil abs 0.0 0.0 - 0.1 K/cumm Neutrophil pct 76.4 % Imm gran pct 0.4 % Lymphocyte pct 16.6 % Monocyte pct 5.8 % Eosinophil pct 0.3 % Basophil pct 0.5 % eGFR Collection Time: 02/10/19 11:41 AM Result Value Ref Range GFR 131 mL/min/1.73 m2 POCT glucose Collection Time: 02/10/19 12:17 PM Result Value Ref Range Glucose, POC 384 (Critical) 71 - 98 mg/dL Urinalysis reflex to microscopic and culture Urine Collection Time: 02/10/19 12:19 PM Result Value Ref Range Color, ur Yellow Yellow Clarity, ur Clear Clear Specific gravity, ur 1.024 1.010 - 1.025 pH, urine 7.0 Protein, ur ql Negative Negative Glucose, ur ql 3+ (A) Negative Ketones, ur 3+ (A) Negative Bilirubin, ur Negative Negative Blood, ur Trace (A) Negative Urobilinogen, ur 0.2 mg/dL Nitrite, ur Negative Negative Leukocyte esterase, ur Negative Negative Urinalysis, microscopic only Collection Time: 02/10/19 12:19 PM Result Value Ref Range WBC, ur 0-5 0 - 5 /HPF RBC, ur 0-5 0 - 2 /HPF Epithelial cells, squamous, ur 1-5 0 - 5 /HPF Bacteria, ur Negative Hyaline casts, ur 1-5 0 - 10 /LPF POCT hCG, urine Collection Time: 02/10/19 12:25 PM Result Value Ref Range HCG, ur, POC Negative Lot Number [id number] QC Backgroud Clear Acceptable QC Control Line Acceptable POCT glucose Collection Time: 02/10/19 1:30 PM Result Value Ref Range Glucose, POC 269 (H) 71 - 98 mg/dL Sepsis Lactate w/ Reflex Collection Time: 02/10/19 2:13 PM Result Value Ref Range Sepsis Lactate 2.4 (H) 0.7 - 2.0 mmol/L Basic metabolic panel Collection Time: 02/10/19 2:13 PM Result Value Ref Range Sodium 140 135 - 145 mmol/L Potassium, pl 4.0 3.3 - 4.9 mmol/L Chloride 103 97 - 110 mmol/L CO2 21 (L) 22 - 32 mmol/L Anion gap 17 (H) 2 - 15 mmol/L BUN 14 8 - 25 mg/dL Creatinine 0.52 (L) 0.60 - 1.10 mg/dL Glucose 269 (H) 70 - 199 mg/dL Calcium 9.0 8.5 - 10.3 mg/dL Blood gas, venous Collection Time: 02/10/19 2:13 PM Result Value Ref Range pH, Venous 7.38 7.32 - 7.43 PCO2, Venous 35 (L) 40 - 50 mmHg PO2, Venous 75 mmHg HCO3 Venous, Calculated 20 20 - 30 mmol/L BE, venous -4 mmol/L eGFR Collection Time: 02/10/19 2:13 PM Result Value Ref Range GFR 136 mL/min/1.73 m2 POCT glucose Collection Time: 02/10/19 2:20 PM Result Value Ref Range Glucose, POC 241 (H) 71 - 98 mg/dL POCT glucose Collection Time: 02/10/19 3:35 PM Result Value Ref Range Glucose, POC 211 (H) 71 - 98 mg/dL Sepsis Lactate w/ Reflex Collection Time: 02/10/19 4:18 PM Result Value Ref Range Sepsis Lactate 3.6 (H) 0.7 - 2.0 mmol/L POCT glucose Collection Time: 02/10/19 4:35 PM Result Value Ref Range Glucose, POC 238 (H) 71 - 98 mg/dL POCT glucose Collection Time: 02/10/19 5:42 PM Result Value Ref Range Glucose, POC 205 (H) 71 - 98 mg/dL POCT glucose Collection Time: 02/10/19 6:28 PM Result Value Ref Range Glucose, POC 205 (H) 71 - 98 mg/dL Phosphorus Collection Time: 02/10/19 7:58 PM Result Value Ref Range Phosphorus, pl 2.6 2.3 - 4.5 mg/dL Magnesium Collection Time: 02/10/19 7:58 PM Result Value Ref Range Magnesium 1.6 1.6 - 2.4 mg/dL TSH reflex to free T4 Collection Time: 02/10/19 7:58 PM Result Value Ref Range TSH 2.42 0.30 - 4.20 mcIUnit/mL Basic metabolic panel Collection Time: 02/10/19 8:01 PM Result Value Ref Range Sodium 137 135 - 145 mmol/L Potassium, pl 3.7 3.3 - 4.9 mmol/L Chloride 99 97 - 110 mmol/L CO2 23 22 - 32 mmol/L Anion gap 15 2 - 15 mmol/L BUN 12 8 - 25 mg/dL Creatinine 0.51 (L) 0.60 - 1.10 mg/dL Glucose 148 70 - 199 mg/dL Calcium 9.4 8.5 - 10.3 mg/dL Lactate Collection Time: 02/10/19 8:01 PM Result Value Ref Range Lactate 2.2 (H) 0.7 - 2.0 mmol/L eGFR Collection Time: 02/10/19 8:01 PM Result Value Ref Range GFR 136 mL/min/1.73 m2 POCT glucose Collection Time: 02/10/19 10:13 PM Result Value Ref Range Glucose, POC 114 (H) 71 - 98 mg/dL Occult blood gastric Collection Time: 02/10/19 10:15 PM Result Value Ref Range Occult blood, gastric Positive Negative Gastric pH Collection Time: 02/10/19 10:15 PM Result Value Ref Range pH, Gastric 3.0 2nd Tech Check [id number] Gastric Color Brown POCT glucose Collection Time: 02/10/19 11:39 PM Result Value Ref Range Glucose, POC 182 (H) 71 - 98 mg/dL Basic metabolic panel Collection Time: 02/11/19 12:26 AM Result Value Ref Range Sodium 133 (L) 135 - 145 mmol/L Potassium, pl 4.1 3.3 - 4.9 mmol/L Chloride 96 (L) 97 - 110 mmol/L CO2 20 (L) 22 - 32 mmol/L Anion gap 18 (H) 2 - 15 mmol/L BUN 11 8 - 25 mg/dL Creatinine 0.37 (L) 0.60 - 1.10 mg/dL Glucose 219 (H) 70 - 199 mg/dL Calcium 8.6 8.5 - 10.3 mg/dL Lactate Collection Time: 02/11/19 12:26 AM Result Value Ref Range Lactate 1.1 0.7 - 2.0 mmol/L Magnesium Collection Time: 02/11/19 12:26 AM Result Value Ref Range Magnesium 2.4 1.6 - 2.4 mg/dL Phosphorus Collection Time: 02/11/19 12:26 AM Result Value Ref Range Phosphorus, pl 3.2 2.3 - 4.5 mg/dL eGFR Collection Time: 02/11/19 12:26 AM Result Value Ref Range GFR 152 mL/min/1.73 m2 POCT glucose Collection Time: 02/11/19 1:25 AM Result Value Ref Range Glucose, POC 178 (H) 71 - 98 mg/dL POCT glucose Collection Time: 02/11/19 2:36 AM Result Value Ref Range Glucose, POC 124 (H) 71 - 98 mg/dL CBC with auto differential Collection Time: 02/11/19 4:14 AM Result Value Ref Range WBC 11.1 (H) 3.8 - 9.9 K/cumm Hgb 13.2 11.9 - 15.5 g/dL Hct 39.3 35.6 - 45.5 % Plt 325 150 - 400 K/cumm MPV 9.0 (L) 9.1 - 12.3 fL RBC 4.80 3.90 - 5.20 M/cumm MCV 81.9 81.3 - 96.4 fL MCH 27.5 27.1 - 33.3 pg MCHC 33.6 32.3 - 35.7 g/dL RDW CV 15.4 (H) 11.1 - 14.9 % RDW SD 46.5 35.7 - 48.1 fL NRBC abs 0.00 0.00 - 0.01 K/cumm Basic metabolic panel Collection Time: 02/11/19 4:14 AM Result Value Ref Range Sodium 138 135 - 145 mmol/L Potassium, pl 3.6 3.3 - 4.9 mmol/L Chloride 101 97 - 110 mmol/L CO2 23 22 - 32 mmol/L Anion gap 14 2 - 15 mmol/L BUN 9 8 - 25 mg/dL Creatinine 0.49 (L) 0.60 - 1.10 mg/dL Glucose 130 70 - 199 mg/dL Calcium 9.1 8.5 - 10.3 mg/dL Magnesium Collection Time: 02/11/19 4:14 AM Result Value Ref Range Magnesium 2.4 1.6 - 2.4 mg/dL Phosphorus Collection Time: 02/11/19 4:14 AM Result Value Ref Range Phosphorus, pl 3.5 2.3 - 4.5 mg/dL Differential, auto Collection Time: 02/11/19 4:14 AM Result Value Ref Range Neutrophil abs 8.4 (H) 1.7 - 6.5 K/cumm Imm gran abs 0.0 0.0 - 0.1 K/cumm Lymphocyte abs 1.7 0.8 - 3.3 K/cumm Monocyte abs 0.9 (H) 0.2 - 0.8 K/cumm Eosinophil abs 0.0 0.0 - 0.5 K/cumm Basophil abs 0.0 0.0 - 0.1 K/cumm Neutrophil pct 76.3 % Imm gran pct 0.3 % Lymphocyte pct 15.3 % Monocyte pct 7.9 % Eosinophil pct 0.1 % Basophil pct 0.1 % eGFR Collection Time: 02/11/19 4:14 AM Result Value Ref Range GFR 138 mL/min/1.73 m2 POCT glucose Collection Time: 02/11/19 4:32 AM Result Value Ref Range Glucose, POC 112 (H) 71 - 98 mg/dL POCT glucose Collection Time: 02/11/19 6:32 AM Result Value Ref Range Glucose, POC 129 (H) 71 - 98 mg/dL Basic metabolic panel Collection Time: 02/11/19 7:54 AM Result Value Ref Range Sodium 136 135 - 145 mmol/L Potassium, pl 3.6 3.3 - 4.9 mmol/L Chloride 99 97 - 110 mmol/L CO2 19 (L) 22 - 32 mmol/L Anion gap 18 (H) 2 - 15 mmol/L BUN 10 8 - 25 mg/dL Creatinine 0.45 (L) 0.60 - 1.10 mg/dL Glucose 189 70 - 199 mg/dL Calcium 9.1 8.5 - 10.3 mg/dL Magnesium Collection Time: 02/11/19 7:54 AM Result Value Ref Range Magnesium 2.0 1.6 - 2.4 mg/dL Phosphorus Collection Time: 02/11/19 7:54 AM Result Value Ref Range Phosphorus, pl 2.0 (L) 2.3 - 4.5 mg/dL eGFR Collection Time: 02/11/19 7:54 AM Result Value Ref Range GFR 142 mL/min/1.73 m2 POCT glucose Collection Time: 02/11/19 8:08 AM Result Value Ref Range Glucose, POC 176 (H) 71 - 98 mg/dL Current Facility-Administered Medications Medication Dose Route Frequency Provider Last Rate Last Dose ??? dextrose (D10W) 10% bolus 1-500 mL 1-500 mL intravenous PRN Gio Sewell MD ??? dextrose 5% and sodium chloride 0.45% infusion (premix) 100 mL/hr intravenous Continuous Gio Sewell MD 100 mL/hr at 02/10/19 1610 100 mL/hr at 02/10/19 1610 ??? dextrose 5% infusion 100 mL/hr intravenous Continuous Gio Sewell MD ??? enoxaparin (LOVENOX) syringe 40 mg 40 mg subcutaneous Daily-2100 Gio Sewell MD ??? influenza quadrivalent [id number] (FLULAVAL,FLUARIX,FLUZONE) 60 mcg (15 mcg x 4)/0.5 mL vaccine (STANDARD age 6 months and up) 0.5 mL 0.5 mL intramuscular During hospitalization Gio Sewell MD ??? insulin regular (HumuLIN R, NovoLIN R) 100 Units in sodium chloride 0.9% 100 mL (1 Units/mL) infusion 0-30 Units/hr intravenous Titrated Gio Sewell MD 1.2 mL/hr at 02/11/19 0810 1.2 Units/hr at 02/11/19 0810 ??? insulin regular bolus from bag 1-10 Units 1-10 Units intravenous PRN Gio Sewell MD ??? ondansetron (ZOFRAN) injection 4 mg 4 mg intravenous Q6H PRN Gio Sewell MD 4 mg at 02/11/19816 ??? pantoprazole (PROTONIX) injection 40 mg 40 mg intravenous Q24H [facility] Gio Sewell MD 40 mg at1816 ??? potassium chloride 40 mEq in sodium chloride 0.9% 500 mL IVPB 40 mEq intravenous Q4H PRN Gio Sewell MD ??? sodium chloride 0.45% infusion 150 mL/hr intravenous Continuous Gio Sewell MD A/P: 1. DKA, present on admission, this is secondary to type 1 diabetes. Patient is in ICU and has GlucoStabilizer protocol started. Blood glucose is nicely coming down but patient continues to have significant symptoms of nausea, feeling hot. Will continue IV insulin drip. Patient will not be able to tolerate anything p.o. At this time. Will start electrolyte replacement protocol. 2. Persistent nausea, I offered her different type of nausea medication but she is declining. She states that the passed a tried different tie up and only Zofran works. Her test was negative. Will get urine drug screen. Will continue symptomatic treatment, half normal saline at 150 mL/hr.Will add Compazine Ng K she wants to alternate. She states that Reglan never worked for her. 3. Hematemesis reported by admitting physician. Patient denies having any hematemesis before she came to hospital emergency room. She did not have any medicines while in the hospital. Will continue symptomatic treatment and give her proton pump inhibitor for now due to significant nausea. If the patient is still here by day will get GI to see her for her nausea but patient denies having any bloody stool or bloody emesis. 4. Hypophosphatemia, will give her K-Phos IV, because she cannot tolerate anything p.o. So far. 5. DVT prophylaxis, continue Lovenox shots 6. Sinus Tachycardia, will continue IV fluids and symptomatic treatment. High complexity Spent 35 minutes coordinating care I spent a total of 35 minutes of which more than 50% of the time was spent in counseling and coordination of care. This time included: Interviewing, assessing, communicating with nurse, changing orders, completing note Principal Problem: Diabetic ketoacidosis with coma associated with type 1 diabetes mellitus ([facility]) Active Problems: Lactic acidosis Depression Hematemesis Sanjuanita Fei, MD 02/11/2019 8:50 AM * Nya Waters, [facility] - 02/10/2019 9:12 PM CDT An order to initiate electrolyte [...] daily x3 days, then every other day. * Nura Clinton RN - 02/10/2019 4:05 PM CDT 02/10/19 1520 Discharge Planning Type of Residence Private residence Living Arrangements Family members (lives with her grandmother) Assistance Needed uses no aids, states she handles her ADL's without diff, goal is to return to grandmother house, no known barriers to discharge noted at this time, 6 clicks done * Nura Clinton RN - 02/10/2019 4:03 PM CDT 02/10/19 1520 Basic Mobility - 6 Click How much [...] railing? 4 Total Score (range 6-24) 24 documented in this encounter H&P Notes * Gio Sewell MD - 02/10/2019 8:30 PM CDT [facility] Adult Hospitalist Service History and Physical Patient Name: Karina Menjivar Patient : 1995 Age/Sex: 23 y.o. female Room/Bed: [place] [address]/[id number] Admission Date/Time: 02/10/2019 10:50 AM Date: 02/10/2019 Time: 8:30 PM Primary Care Physician: KEANU Conway PCP Office Location: [address] [place] [address] [address] TYS[address] [place] [address] PCP SUBJECTIVE: Patient is a 23 y.o. female with a PMHx of definite diabetes, depression, presents to the ED with achief complaint of DKA. HPI Patient presented to the emergency department with complains of recurrent DKA. Currently is lethargic and unable to provide with comprehensive history. Mother is at bedside and provides with a history. She had been recently admitted to the hospital with another DKA in October of 2018. The reportedly sheis compliant with her medications, had been following up with photographic technician. The she reported that home blood sugar reading this morning was at 143. She developed nausea and started vomiting which is her usual presentation for DKA so came to the emergency department for further evaluation. On further workup in the ED patient was diagnosed with DKA is, started on insulin drip and referredfor admission for further management in ICU. Patient denies any sick contacts, denies any sore throat cough shortness of breath abdominal pain or dysuria no skin rashes. She recently had a miscarriage in October of 2018. Review of Systems: Review of system limited due to patient being lethargic. Other positives as stated in HPI Past Medical History: Past Medical History: Diagnosis [...] Use Topics ??? Alcohol use: Not Currently Allergies: No Known Allergies Home Medications: Medications Prior to Admission Medication Sig Dispense Refill Last Dose ??? insulin lispro (HumaLOG) 100 unit/mL injection Inject under the skin 3 (three) times a day before meals Uses per sliding scale 1 unit per every 8 grams of carb 02/09/2019 at Unknown time ??? doxycycline (VIBRAMYCIN) 100 mg capsule Take 1 tablet/capsule (100 mg total) by mouth 2 (two) times a day 6 tablet/capsule 0 ??? glucagon 1 mg kit Inject 1 mL (1 mg total) into the muscle as instructed every 30 (thirty) minutes as needed (blood glucose less than 70 mg/dL AND no IV access AND unable to take PO glucose/jiuce.) Unknown at Unknown time ??? ibuprofen (ADVIL,MOTRIN) 600 mg tablet Take 1 tablet (600 mg total) by mouth every 6 (six) hours as needed for pain (pain) 30 tablet 2 More than a month at Unknown time ??? insulin glargine (LANTUS,BASAGLAR) 100 unit/mL (3 mL) insulin pen Inject 10 Units under the skin daily 02/09/2019 at Unknown time ??? methylergonovine (METHERGINE) 0.2 mg tablet Take 1 tablet (0.2 mg total) by mouth 3 (three) times a day 9 tablet 0 Objective: Vitals: Patient Vitals for the past 24 hrs: Patient Vitals for the past 24 hrs: BP Temp Temp src Pulse Resp SpO2 Height Weight 02/10/19 1730 123/77 -- -- 104 16 99 % -- -- 02/10/19 1645 118/76 -- -- 98 11 99 % -- -- 02/10/19 1610 118/82 36.3 ??C (97.4 ??F) Temporal 94 16 100 % -- -- 02/10/19 1245 136/87 -- -- 102 -- 100 % -- -- 02/10/19 1240 -- -- -- 97 -- 98 % -- -- 02/10/19 1235 -- -- -- 103 17 99 % -- -- 02/10/19 1230 133/81 -- -- 98 21 98 % -- -- 02/10/19 1225 -- -- -- 102 13 99 % -- -- 02/10/19 1220 -- -- -- 95 11 99 % -- -- 02/10/19 1215 (!) 146/102 -- -- 105 13 100 % -- -- 02/10/19 1210 -- -- -- 101 19 100 % -- -- 02/10/19 1205 -- -- -- 113 17 98 % -- -- 02/10/19 1200 131/90 -- -- 102 19 99 % -- -- 02/10/19 1155 -- -- -- 96 12 100 % -- -- 02/10/19 1150 -- -- -- 78 20 99 % -- -- 02/10/19 1145 (!) 150/101 -- -- 98 14 98 % -- -- 02/10/19 1140 -- -- -- 102 15 100 % -- -- 02/10/19 1135 -- -- -- 102 13 100 % -- -- 02/10/19 1130 110/92 -- -- 107 13 100 % -- -- 02/10/19 1125 -- -- -- 99 14 100 % -- -- 02/10/19 1120 -- -- -- 99 18 100 % -- -- 02/10/19 1115 122/90 -- -- 109 -- 100 % -- -- 02/10/19 1110 -- -- -- 101 -- 100 % -- -- 02/10/19 1108 (!) 146/104 36.6 ??C (97.9 ??F) Temporal 84 18 98 % 165.1 cm (5' 5 ) 56.7 kg (125 lb) 02/10/19 1105 (!) 146/104 -- -- 114 -- 99 % -- -- Physical Exam: General: Lethargic, sickly appearing Eyes: EOMI, ZORAIDA, sclare non icteric Neck: supple, trachea midline Pharynx: tongue midline, mucosa extremely dry Lungs CTA Heart: [id number] Abd: +BS, Non Tender, Non distended, No gross hepatomegaly Lower Ext: No gross edema Neuro: Moves all extremities spontaneously. Musculoskeletal: no gross joint erythema, edema, tenderness Genitourinary: No suprapubic or CVA tenderness Skin: No skin rashes, warm and dry to palpation Laboratory Results: Recent Results (from the past 24 hour(s)) CBC with auto differential Collection Time: 02/10/19 11:41 AM Result Value Ref Range WBC 8.0 3.8 - 9.9 K/cumm Hgb 14.2 11.9 - 15.5 g/dL Hct 42.2 35.6 - 45.5 % Plt 295 150 - 400 K/cumm MPV 10.7 9.1 - 12.3 fL RBC 5.16 3.90 - 5.20 M/cumm MCV 81.8 81.3 - 96.4 fL MCH 27.5 27.1 - 33.3 pg MCHC 33.6 32.3 - 35.7 g/dL RDW CV 15.3 (H) 11.1 - 14.9 % RDW SD 45.9 35.7 - 48.1 fL NRBC abs 0.00 0.00 - 0.01 K/cumm Comprehensive metabolic panel Collection Time: 02/10/19 11:41 AM Result Value Ref Range Sodium 139 135 - 145 mmol/L Potassium, pl 3.7 3.3 - 4.9 mmol/L Chloride 97 97 - 110 mmol/L CO2 21 (L) 22 - 32 mmol/L Anion gap 21 (H) 2 - 15 mmol/L BUN 16 8 - 25 mg/dL Creatinine 0.58 (L) 0.60 - 1.10 mg/dL Glucose 348 (H) 70 - 199 mg/dL Calcium 9.3 8.5 - 10.3 mg/dL Bilirubin, total 0.3 0.1 - 1.2 mg/dL Protein, pl 7.0 6.5 - 8.5 g/dL Albumin 4.4 3.5 - 5.0 g/dL Alk phos 71 40 - 130 Units/L ALT 12 7 - 45 Units/L AST 21 10 - 45 Units/L Blood gas, venous Collection Time: 02/10/19 11:41 AM Result Value Ref Range pH, Venous 7.36 7.32 - 7.43 PCO2, Venous 38 (L) 40 - 50 mmHg PO2, Venous 74 mmHg HCO3 Venous, Calculated 21 20 - 30 mmol/L BE, venous -4 mmol/L Lipase Collection Time: 02/10/19 11:41 AM Result Value Ref Range Lipase 12 10 - 99 Units/L Sepsis Lactate w/ Reflex Collection Time: 02/10/19 11:41 AM Result Value Ref Range Sepsis Lactate 2.9 (H) 0.7 - 2.0 mmol/L Differential, auto Collection Time: 02/10/19 11:41 AM Result Value Ref Range Neutrophil abs 6.1 1.7 - 6.5 K/cumm Imm gran abs 0.0 0.0 - 0.1 K/cumm Lymphocyte abs 1.3 0.8 - 3.3 K/cumm Monocyte abs 0.5 0.2 - 0.8 K/cumm Eosinophil abs 0.0 0.0 - 0.5 K/cumm Basophil abs 0.0 0.0 - 0.1 K/cumm Neutrophil pct 76.4 % Imm gran pct 0.4 % Lymphocyte pct 16.6 % Monocyte pct 5.8 % Eosinophil pct 0.3 % Basophil pct 0.5 % eGFR Collection Time: 02/10/19 11:41 AM Result Value Ref Range GFR 131 mL/min/1.73 m2 POCT glucose Collection Time: 02/10/19 12:17 PM Result Value Ref Range Glucose, POC 384 (Critical) 71 - 98 mg/dL Urinalysis reflex to microscopic and culture Urine Collection Time: 02/10/19 12:19 PM Result Value Ref Range Color, ur Yellow Yellow Clarity, ur Clear Clear Specific gravity, ur 1.024 1.010 - 1.025 pH, urine 7.0 Protein, ur ql Negative Negative Glucose, ur ql 3+ (A) Negative Ketones, ur 3+ (A) Negative Bilirubin, ur Negative Negative Blood, ur Trace (A) Negative Urobilinogen, ur 0.2 mg/dL Nitrite, ur Negative Negative Leukocyte esterase, ur Negative Negative Urinalysis, microscopic only Collection Time: 02/10/19 12:19 PM Result Value Ref Range WBC, ur 0-5 0 - 5 /HPF RBC, ur 0-5 0 - 2 /HPF Epithelial cells, squamous, ur 1-5 0 - 5 /HPF Bacteria, ur Negative Hyaline casts, ur 1-5 0 - 10 /LPF POCT hCG, urine Collection Time: 02/10/19 12:25 PM Result Value Ref Range HCG, ur, POC Negative Lot Number [id number] QC Backgroud Clear Acceptable QC Control Line Acceptable POCT glucose Collection Time: 02/10/19 1:30 PM Result Value Ref Range Glucose, POC 269 (H) 71 - 98 mg/dL Sepsis Lactate w/ Reflex Collection Time: 02/10/19 2:13 PM Result Value Ref Range Sepsis Lactate 2.4 (H) 0.7 - 2.0 mmol/L Basic metabolic panel Collection Time: 02/10/19 2:13 PM Result Value Ref Range Sodium 140 135 - 145 mmol/L Potassium, pl 4.0 3.3 - 4.9 mmol/L Chloride 103 97 - 110 mmol/L CO2 21 (L) 22 - 32 mmol/L Anion gap 17 (H) 2 - 15 mmol/L BUN 14 8 - 25 mg/dL Creatinine 0.52 (L) 0.60 - 1.10 mg/dL Glucose 269 (H) 70 - 199 mg/dL Calcium 9.0 8.5 - 10.3 mg/dL Blood gas, venous Collection Time: 02/10/19 2:13 PM Result Value Ref Range pH, Venous 7.38 7.32 - 7.43 PCO2, Venous 35 (L) 40 - 50 mmHg PO2, Venous 75 mmHg HCO3 Venous, Calculated 20 20 - 30 mmol/L BE, venous -4 mmol/L eGFR Collection Time: 02/10/19 2:13 PM Result Value Ref Range GFR 136 mL/min/1.73 m2 POCT glucose Collection Time: 02/10/19 2:20 PM Result Value Ref Range Glucose, POC 241 (H) 71 - 98 mg/dL POCT glucose Collection Time: 02/10/19 3:35 PM Result Value Ref Range Glucose, POC 211 (H) 71 - 98 mg/dL Sepsis Lactate w/ Reflex Collection Time: 02/10/19 4:18 PM Result Value Ref Range Sepsis Lactate 3.6 (H) 0.7 - 2.0 mmol/L POCT glucose Collection Time: 02/10/19 4:35 PM Result Value Ref Range Glucose, POC 238 (H) 71 - 98 mg/dL POCT glucose Collection Time: 02/10/19 5:42 PM Result Value Ref Range Glucose, POC 205 (H) 71 - 98 mg/dL POCT glucose Collection Time: 02/10/19 6:28 PM Result Value Ref Range Glucose, POC 205 (H) 71 - 98 mg/dL Basic metabolic panel Collection Time: 02/10/19 8:01 PM Result Value Ref Range Sodium 137 135 - 145 mmol/L Potassium, pl 3.7 3.3 - 4.9 mmol/L Chloride 99 97 - 110 mmol/L CO2 23 22 - 32 mmol/L Anion gap 15 2 - 15 mmol/L BUN 12 8 - 25 mg/dL Creatinine 0.51 (L) 0.60 - 1.10 mg/dL Glucose 148 70 - 199 mg/dL Calcium 9.4 8.5 - 10.3 mg/dL Lactate Collection Time: 02/10/19 8:01 PM Result Value Ref Range Lactate 2.2 (H) 0.7 - 2.0 mmol/L eGFR Collection Time: 02/10/19 8:01 PM Result Value Ref Range GFR 136 mL/min/1.73 m2 ASSESSMENT AND PLAN: Principal Problem: Type 1 diabetes mellitus with hyperglycemia (CMS/HCC) Reportedly patient had been compliant with her insulin regimen however very frail and trips into the DKA state unexpectedly. Lactic acid levels were elevated. So far no source of infection had been identified. Will continue with IV fluids. Continue insulin drip until anion gap is closed and less than 13. Start on D5 when blood sugars less than 250. Will keep the patient NPO be cause of persistent emesis. Will restart diet when anion gap is closed. Monitor serial BMP and electrolytes, replete per pharmacy repletion protocol. Active Problems: Lactic acidosis No source of infection had been identified. Will check stool for H pylori antigen. Patient had been on NSAIDs recently. The vomitus was positive for occult blood. Consider GI consult to rule out PUD. Depression-stable. Currently NPO, holding oral medications Hematemesis Patient reported persistent emesis proceeding DKA events. O vitals was positive for blood. Will start on Protonix. Will check for H pylori antigen. Monitor closely H&H every 6 hours. Will consider GI consult in a.m. Principal Problem: Type 1 diabetes mellitus with hyperglycemia (CMS/HCC) Active Problems: Lactic acidosis Depression Hematemesis Full Code Expected LOS: More than 2 midnights MDM: Moderate complexity Gio Sewell MD Internal Medicine - Hospitalist [facility] - Adult Hospitalist Service CC: KEANU Conway documented in this encounter Consult Notes * Warren Phillips MD - 02/13/2019 3:05 PM CDT Gastroenterology Consult Reason for consult: Persistent nausea. Not an urgent consult Date of Consult: 02/13/2019 Consultation was requested by Dr. Sanjuanita Enamorado for nausea and vomiting. SUBJECTIVE Patient is a 23 y.o. female with complaint of nausea and vomiting. Patient was admitted through theemergency room with recurrent episodes of vomiting. Noted that she was in ketoacidosis. She has uncontrolled diabetes. She has been in the intensive care unit overnight with intravenous fluid and insulin drip. Overnight overall her symptoms seems to have improved. Noted in 1 of the episode possiblecoffee-ground emesis. At this time she has no abdominal pain. She still have poor appetite and few she feels then was some nausea but no vomiting since admission overnight. She is also currently on Reglan intravenously. Patient had this problem before and every time she has high blood sugar she started to have vomiting. It seems she has gastroparesis. Her examination at this time is unremarkable. Past Medical History: Diagnosis Date ??? Depression ??? Diabetes mellitus (CMS/HCC) ??? HX OTHER MEDICAL 2011 Diabetes mellitus, type 1 ??? Miscarriage Past Surgical History: Procedure Laterality Date ??? ABDOMINAL SURGERY ??? SECTION, CLASSIC 2016 ??? TONSILLECTOMY Bilateral 2002 Medications Prior to Admission Medication Sig Dispense Refill Last Dose ??? insulin lispro (HumaLOG) 100 unit/mL injection Inject under the skin 3 (three) times a day before meals Uses per sliding scale 1 unit per every 8 grams of carb 02/09/2019 at Unknown time ??? doxycycline (VIBRAMYCIN) 100 mg capsule Take 1 tablet/capsule (100 mg total) by mouth 2 (two) times a day 6 tablet/capsule 0 ??? glucagon 1 mg kit Inject 1 mL (1 mg total) into the muscle as instructed every 30 (thirty) minutes as needed (blood glucose less than 70 mg/dL AND no IV access AND unable to take PO glucose/jiuce.) Unknown at Unknown time ??? ibuprofen (ADVIL,MOTRIN) 600 mg tablet Take 1 tablet (600 mg total) by mouth every 6 (six) hours as needed for pain (pain) 30 tablet 2 More than a month at Unknown time ??? insulin glargine (LANTUS,BASAGLAR) 100 unit/mL (3 mL) insulin pen Inject 10 Units under the skin daily 02/09/2019 at Unknown time ??? methylergonovine (METHERGINE) 0.2 mg tablet Take 1 tablet (0.2 mg total) by mouth 3 (three) times a day 9 tablet 0 No Known Allergies Social History Tobacco Use ??? Smoking status: Never Smoker ??? Smokeless tobacco: Never Used Substance Use Topics ??? Alcohol use: Not Currently Family History Problem Relation Age of Onset ??? No Known Problems Mother ??? Autism Brother Review of Systems Constitutional: Positive for fatigue. Negative for unexpected weight change. HENT: Negative for trouble swallowing. Eyes: Negative. Respiratory: Negative. Cardiovascular: Negative. Gastrointestinal: Positive for nausea and vomiting. Endocrine: Negative. Musculoskeletal: Positive for arthralgias. Skin: Negative. Neurological: Negative. Psychiatric/Behavioral: Negative. Vitals: BP 136/96 Pulse 92 Temp 37.3 ??C (99.2 ??F) (Temporal) Resp 13 Ht 165.1 cm (5' 5 ) Wt 56.7 kg (125 lb) LMP 02/10/2019 SpO2 100% ? Unknown BMI 20.80 kg/m?? OBJECTIVE Physical Exam: Patient is alert [...] past 48 hour(s)) POCT glucose Collection Time: 02/11/19 4:03 PM Result Value Ref Range Glucose, POC 163 (H) 71 - 98 mg/dL POCT glucose Collection Time: 02/11/19 5:28 PM Result Value Ref Range Glucose, POC 153 (H) 71 - 98 mg/dL POCT glucose Collection Time: 02/11/19 6:44 PM Result Value Ref Range Glucose, POC 161 (H) 71 - 98 mg/dL POCT glucose Collection Time: 02/11/19 9:06 PM Result Value Ref Range Glucose, POC 163 (H) 71 - 98 mg/dL Basic metabolic panel Collection Time: 02/11/19 11:06 PM Result Value Ref Range Sodium 136 135 - 145 mmol/L Potassium, pl 3.7 3.3 - 4.9 mmol/L Chloride 101 97 - 110 mmol/L CO2 20 (L) 22 - 32 mmol/L Anion gap 15 2 - 15 mmol/L BUN 6 (L) 8 - 25 mg/dL Creatinine 0.32 (L) 0.60 - 1.10 mg/dL Glucose 195 70 - 199 mg/dL Calcium 8.5 8.5 - 10.3 mg/dL Magnesium Collection Time: 02/11/19 11:06 PM Result Value Ref Range Magnesium 1.8 1.6 - 2.4 mg/dL Phosphorus Collection Time: 02/11/19 11:06 PM Result Value Ref Range Phosphorus, pl 1.8 (L) 2.3 - 4.5 mg/dL eGFR Collection Time: 02/11/19 11:06 PM Result Value Ref Range GFR 159 mL/min/1.73 m2 POCT glucose Collection Time: 02/11/19 11:19 PM Result Value Ref Range Glucose, POC 177 (H) 71 - 98 mg/dL POCT glucose Collection Time: 02/12/19 1:04 AM Result Value Ref Range Glucose, POC 193 (H) 71 - 98 mg/dL POCT glucose Collection Time: 02/12/19 3:06 AM Result Value Ref Range Glucose, POC 189 (H) 71 - 98 mg/dL Basic metabolic panel Collection Time: 02/12/19 4:27 AM Result Value Ref Range Sodium 133 (L) 135 - 145 mmol/L Potassium, pl 3.8 3.3 - 4.9 mmol/L Chloride 99 97 - 110 mmol/L CO2 20 (L) 22 - 32 mmol/L Anion gap 14 2 - 15 mmol/L BUN 6 (L) 8 - 25 mg/dL Creatinine 0.32 (L) 0.60 - 1.10 mg/dL Glucose 183 70 - 199 mg/dL Calcium 8.7 8.5 - 10.3 mg/dL Magnesium Collection Time: 02/12/19 4:27 AM Result Value Ref Range Magnesium 1.9 1.6 - 2.4 mg/dL Phosphorus Collection Time: 02/12/19 4:27 AM Result Value Ref Range Phosphorus, pl 2.2 (L) 2.3 - 4.5 mg/dL eGFR Collection Time: 02/12/19 4:27 AM Result Value Ref Range GFR 159 mL/min/1.73 m2 POCT glucose Collection Time: 02/12/19 6:28 AM Result Value Ref Range Glucose, POC 273 (H) 71 - 98 mg/dL Basic metabolic panel Collection Time: 02/12/19 7:07 AM Result Value Ref Range Sodium 135 135 - 145 mmol/L Potassium, pl 3.4 3.3 - 4.9 mmol/L Chloride 97 97 - 110 mmol/L CO2 16 (L) 22 - 32 mmol/L Anion gap 22 (H) 2 - 15 mmol/L BUN 8 8 - 25 mg/dL Creatinine 0.32 (L) 0.60 - 1.10 mg/dL Glucose 281 (H) 70 - 199 mg/dL Calcium 8.6 8.5 - 10.3 mg/dL Magnesium Collection Time: 02/12/19 7:07 AM Result Value Ref Range Magnesium 1.9 1.6 - 2.4 mg/dL Phosphorus Collection Time: 02/12/19 7:07 AM Result Value Ref Range Phosphorus, pl 2.1 (L) 2.3 - 4.5 mg/dL CBC with auto differential Collection Time: 02/12/19 7:07 AM Result Value Ref Range WBC 12.7 (H) 3.8 - 9.9 K/cumm Hgb 14.3 11.9 - 15.5 g/dL Hct 41.3 35.6 - 45.5 % Plt 346 150 - 400 K/cumm MPV 9.4 9.1 - 12.3 fL RBC 5.12 3.90 - 5.20 M/cumm MCV 80.7 (L) 81.3 - 96.4 fL MCH 27.9 27.1 - 33.3 pg MCHC 34.6 32.3 - 35.7 g/dL RDW CV 15.2 (H) 11.1 - 14.9 % RDW SD 44.8 35.7 - 48.1 fL NRBC abs 0.00 0.00 - 0.01 K/cumm Differential, auto Collection Time: 02/12/19 7:07 AM Result Value Ref Range Neutrophil abs 10.7 (H) 1.7 - 6.5 K/cumm Imm gran abs 0.1 0.0 - 0.1 K/cumm Lymphocyte abs 1.1 0.8 - 3.3 K/cumm Monocyte abs 0.8 0.2 - 0.8 K/cumm Eosinophil abs 0.0 0.0 - 0.5 K/cumm Basophil abs 0.0 0.0 - 0.1 K/cumm Neutrophil pct 84.0 % Imm gran pct 0.5 % Lymphocyte pct 9.0 % Monocyte pct 6.1 % Eosinophil pct 0.2 % Basophil pct 0.2 % eGFR Collection Time: 02/12/19 7:07 AM Result Value Ref Range GFR 159 mL/min/1.73 m2 aPTT Collection Time: 02/12/19 7:07 AM Result Value Ref Range aPTT 26.2 25.0 - 37.0 sec POCT glucose Collection Time: 02/12/19 7:48 AM Result Value Ref Range Glucose, POC 188 (H) 71 - 98 mg/dL Protime-INR Collection Time: 02/12/19 8:46 AM Result Value Ref Range PT 13.3 (H) 9.5 - 13.0 sec INR 1.18 0.90 - 1.20 POCT glucose Collection Time: 02/12/19 8:49 AM Result Value Ref Range Glucose, POC 171 (H) 71 - 98 mg/dL POCT glucose Collection Time: 02/12/19 9:49 AM Result Value Ref Range Glucose, POC 152 (H) 71 - 98 mg/dL POCT glucose Collection Time: 02/12/19 10:51 AM Result Value Ref Range Glucose, POC 133 (H) 71 - 98 mg/dL POCT glucose Collection Time: 02/12/19 11:53 AM Result Value Ref Range Glucose, POC 74 71 - 98 mg/dL POCT glucose Collection Time: 02/12/19 1:15 PM Result Value Ref Range Glucose, POC 155 (H) 71 - 98 mg/dL POCT glucose Collection Time: 02/12/19 2:12 PM Result Value Ref Range Glucose, POC 178 (H) 71 - 98 mg/dL Basic metabolic panel Collection Time: 02/12/19 2:48 PM Result Value Ref Range Sodium 137 135 - 145 mmol/L Potassium, pl 3.6 3.3 - 4.9 mmol/L Chloride 100 97 - 110 mmol/L CO2 16 (L) 22 - 32 mmol/L Anion gap 21 (H) 2 - 15 mmol/L BUN 7 (L) 8 - 25 mg/dL Creatinine 0.40 (L) 0.60 - 1.10 mg/dL Glucose 300 (H) 70 - 199 mg/dL Calcium 8.2 (L) 8.5 - 10.3 mg/dL Magnesium Collection Time: 02/12/19 2:48 PM Result Value Ref Range Magnesium 2.0 1.6 - 2.4 mg/dL Phosphorus Collection Time: 02/12/19 2:48 PM Result Value Ref Range Phosphorus, pl 2.7 2.3 - 4.5 mg/dL eGFR Collection Time: 02/12/19 2:48 PM Result Value Ref Range GFR 148 mL/min/1.73 m2 POCT glucose Collection Time: 02/12/19 3:10 PM Result Value Ref Range Glucose, POC 201 (H) 71 - 98 mg/dL POCT glucose Collection Time: 02/12/19 4:10 PM Result Value Ref Range Glucose, POC 234 (H) 71 - 98 mg/dL POCT glucose Collection Time: 02/12/19 5:16 PM Result Value Ref Range Glucose, POC 201 (H) 71 - 98 mg/dL POCT glucose Collection Time: 02/12/19 6:18 PM Result Value Ref Range Glucose, POC 137 (H) 71 - 98 mg/dL POCT glucose Collection Time: 02/12/19 7:31 PM Result Value Ref Range Glucose, POC 101 (H) 71 - 98 mg/dL Basic metabolic panel Collection Time: 02/12/19 7:46 PM Result Value Ref Range Sodium 138 135 - 145 mmol/L Potassium, pl 3.0 (Critical) 3.3 - 4.9 mmol/L Chloride 102 97 - 110 mmol/L CO2 21 (L) 22 - 32 mmol/L Anion gap 15 2 - 15 mmol/L BUN 5 (L) 8 - 25 mg/dL Creatinine 0.34 (L) 0.60 - 1.10 mg/dL Glucose 106 70 - 199 mg/dL Calcium 8.3 (L) 8.5 - 10.3 mg/dL Magnesium Collection Time: 02/12/19 7:46 PM Result Value Ref Range Magnesium 1.9 1.6 - 2.4 mg/dL Phosphorus Collection Time: 02/12/19 7:46 PM Result Value Ref Range Phosphorus, pl 1.9 (L) 2.3 - 4.5 mg/dL eGFR Collection Time: 02/12/19 7:46 PM Result Value Ref Range GFR 156 mL/min/1.73 m2 POCT glucose Collection Time: 02/12/19 9:46 PM Result Value Ref Range Glucose, POC 117 (H) 71 - 98 mg/dL POCT glucose Collection Time: 02/13/19 12:01 AM Result Value Ref Range Glucose, POC 129 (H) 71 - 98 mg/dL Basic metabolic panel Collection Time: 02/13/19 12:23 AM Result Value Ref Range Sodium 137 135 - 145 mmol/L Potassium, pl 3.3 3.3 - 4.9 mmol/L Chloride 99 97 - 110 mmol/L CO2 22 22 - 32 mmol/L Anion gap 16 (H) 2 - 15 mmol/L BUN 5 (L) 8 - 25 mg/dL Creatinine 0.31 (L) 0.60 - 1.10 mg/dL Glucose 138 70 - 199 mg/dL Calcium 8.8 8.5 - 10.3 mg/dL Magnesium Collection Time: 02/13/19 12:23 AM Result Value Ref Range Magnesium 1.9 1.6 - 2.4 mg/dL Phosphorus Collection Time: 02/13/19 12:23 AM Result Value Ref Range Phosphorus, pl 2.1 (L) 2.3 - 4.5 mg/dL eGFR Collection Time: 02/13/19 12:23 AM Result Value Ref Range GFR 161 mL/min/1.73 m2 POCT glucose Collection Time: 02/13/19 1:35 AM Result Value Ref Range Glucose, POC 147 (H) 71 - 98 mg/dL POCT glucose Collection Time: 02/13/19 3:00 AM Result Value Ref Range Glucose, POC 139 (H) 71 - 98 mg/dL Basic metabolic panel Collection Time: 02/13/19 4:32 AM Result Value Ref Range Sodium 134 (L) 135 - 145 mmol/L Potassium, pl 3.2 (L) 3.3 - 4.9 mmol/L Chloride 97 97 - 110 mmol/L CO2 22 22 - 32 mmol/L Anion gap 15 2 - 15 mmol/L BUN 4 (L) 8 - 25 mg/dL Creatinine 0.31 (L) 0.60 - 1.10 mg/dL Glucose 162 70 - 199 mg/dL Calcium 8.7 8.5 - 10.3 mg/dL Magnesium Collection Time: 02/13/19 4:32 AM Result Value Ref Range Magnesium 1.9 1.6 - 2.4 mg/dL Phosphorus Collection Time: 02/13/19 4:32 AM Result Value Ref Range Phosphorus, pl 1.8 (L) 2.3 - 4.5 mg/dL eGFR Collection Time: 02/13/19 4:32 AM Result Value Ref Range GFR 161 mL/min/1.73 m2 POCT glucose Collection Time: 02/13/19 4:37 AM Result Value Ref Range Glucose, POC 142 (H) 71 - 98 mg/dL POCT glucose Collection Time: 02/13/19 6:23 AM Result Value Ref Range Glucose, POC 148 (H) 71 - 98 mg/dL POCT glucose Collection Time: 02/13/19 7:53 AM Result Value Ref Range Glucose, POC 140 (H) 71 - 98 mg/dL Basic metabolic panel Collection Time: 02/13/19 8:31 AM Result Value Ref Range Sodium 135 135 - 145 mmol/L Potassium, pl 2.9 (Critical) 3.3 - 4.9 mmol/L Chloride 97 97 - 110 mmol/L CO2 25 22 - 32 mmol/L Anion gap 13 2 - 15 mmol/L BUN 3 (L) 8 - 25 mg/dL Creatinine 0.26 (L) 0.60 - 1.10 mg/dL Glucose 159 70 - 199 mg/dL Calcium 8.6 8.5 - 10.3 mg/dL Magnesium Collection Time: 02/13/19 8:31 AM Result Value Ref Range Magnesium 1.8 1.6 - 2.4 mg/dL Phosphorus Collection Time: 02/13/19 8:31 AM Result Value Ref Range Phosphorus, pl 2.1 (L) 2.3 - 4.5 mg/dL eGFR Collection Time: 02/13/19 8:31 AM Result Value Ref Range GFR 170 mL/min/1.73 m2 POCT glucose Collection Time: 02/13/19 8:49 AM Result Value Ref Range Glucose, POC 136 (H) 71 - 98 mg/dL POCT glucose Collection Time: 02/13/19 10:22 AM [...] Value Ref Range GFR 156 mL/min/1.73 m2 No results found. GI IMPRESSION: 1. Nausea vomiting secondary to gastroparesis exacerbated and flared up secondary to the diabetes ketoacidosis 2. Uncontrolled diabetes GI PLAN: 1. Continue Reglan intravenously 2. Start clear liquid diet 3. Upper endoscopy tomorrow C she never had endoscopy. 4. Strict control blood sugar and hopefully this will be a long-term goal for the patient 5. Follow-up progress Warren Phillips MD documented in this encounter Nursing Notes * Eliane Brandt RN - 02/13/2019 6:50 PM CDT The patient was a transfer to the MCU from the ICU. The patient was on the MCU for less than a halfhour before she stated she wanted to leave against medical advice (AMA). The MD, Dr. Enamorado, was informed of the patient wanting to leave AMA and the patient was educated on the possible risks of doing so. Despite the risks associated with leaving AMA, the patient decided to sign herself out of care from the MCU. * Eliane Brandt RN - 02/13/2019 6:48 PM CDT Patient left against medical advice (AMA) to private residence via private transportation. Alert and Oriented x 4. Room air. Activity status independent. Patient left AMA. Understanding of risks associated with leaving AMA verbalized. * Ida Hair RN - 02/13/2019 5:02 PM CDT Pt A&O x 4. VS stable. Resp unlabored. No c/o nausea, or abdominal pain. Pt given insulin coverage for meals. Pt has clear liquid tray and states that she will eat. IV infusing without difficulty. Gait steady from bed to chair. Pt transferred to [id number] per wheelchair with all of her belongings. Pt states she will notify her family. * Arnold Cantu RN - 02/10/2019 6:32 PM CDT Has had emesis x 3 since arrival. About 200 cc and it appears coffee ground. I discussed with Dr. Carlisle, and he ordered IV Pepcid and Zofran. I liane the medicine up, and attempted to give it, but she refused. I encouraged her to take it because her emesis appeared bloody, and she refused. documented in this encounter ED Notes * Pato Haney MD - 02/10/2019 11:18 AM CDT HPI Chief Complaint Patient presents with ??? Vomiting 11:08 AM 02/10/2019 Karina Menjivar is a 23 year old female with a PMHx of depression, DM and miscarriage presenting to EDfor emesis. Patient states that she began experiencing onset of emesis this morning. States that her BS level was 143 the last time she checked. Denies any recent issues with abnormal blood sugar leve ls, recent infections, or pain. No modifying or alleviating factors. No other complaints at this time. Patient History Patient Active Problem List Diagnosis Date Noted ??? Hypokalemia 11/08/2018 ??? Hyperemesis gravidarum with metabolic disturbance 11/08/2018 ??? Less than 8 weeks gestation of ??? Sepsis due to gram-negative UTI (CMS/HCC) 05/27/2018 ??? Type 1 diabetes mellitus with ketoacidosis without coma (CMS/HCC) ??? Type 1 diabetes mellitus with hyperglycemia (CMS/HCC) ??? Nausea and vomiting 01/02/2018 ??? Dehydration 01/02/2018 ??? Metabolic alkalosis 01/02/2018 ??? Uncontrolled type 1 diabetes mellitus with hyperglycemia (CMS/HCC) 01/02/2018 ??? Ketonuria 01/02/2018 ??? Thrombocytosis (CMS/HCC) 01/02/2018 ??? Diabetic ketoacidosis with coma associated with type 1 diabetes mellitus (CMS/HCC) ??? Gastroenteritis ??? Sinus tachycardia ??? Normocytic [...] Currently ??? Drug use: No Social History Social History Narrative ??? Not on file Review of Systems Review of Systems Constitutional: Negative for fever. HENT: Negative for congestion. Eyes: Negative for redness. Respiratory: Negative for shortness of breath. Cardiovascular: Negative for chest pain. Gastrointestinal: Positive for vomiting. Negative for abdominal pain. Genitourinary: Negative for difficulty urinating. Musculoskeletal: Negative for joint swelling. Skin: Negative for rash. Neurological: Negative for headaches. Psychiatric/Behavioral: Negative for agitation. Physical Exam ED Triage Vitals Temp Pulse Resp BP SpO2 02/10/19 1108 02/10/19 1105 02/10/19 1108 02/10/19 1105 02/10/19 1105 36.6 ??C (97.9 ??F) 114 18 (!) 146/104 99 % Temp src Heart Rate Source Patient Position BP Location FiO2 (%) 02/10/19 1108 -- -- -- -- Temporal Physical Exam Constitutional: She appears well-developed and well-nourished. She appears distressed (Moderate). HENT: Head: Normocephalic and atraumatic. Right Ear: No drainage. Left Ear: No drainage. Nose: No rhinorrhea. Mouth/Throat: Oropharynx is clear and moist. Eyes: Conjunctivae and EOM are normal. Neck: Normal range of motion. Cardiovascular: Normal rate, regular rhythm, normal heart sounds and intact distal pulses. No murmur heard. Pulmonary/Chest: Effort normal and breath sounds normal. No respiratory distress. She has no wheezes. She has no rales. Abdominal: Soft. She exhibits no distension. There is no tenderness. There is no guarding. Musculoskeletal: Normal range of motion. She exhibits no edema. Neurological: She is alert. No sensory deficit (To light touch). Face symmetrical. Skin: Skin is warm. Capillary refill takes less than 2 seconds. She is diaphoretic. Psychiatric: She has a normal mood and affect. Her behavior is normal. Nursing note and vitals reviewed. Procedures BP 136/87 Pulse 102 Temp 36.6 ??C (97.9 ??F) (Temporal) Resp 17 Ht 165.1 cm (5' 5 ) Wt 56.7 kg (125 lb) LMP 02/10/2019 SpO2 100% ? Unknown BMI 20.80 kg/m?? Labs Reviewed URINALYSIS AND REFLEX TO MICROSCOPIC AND CULTURE - Abnormal Result Value Color, ur Yellow Clarity, ur Clear Specific gravity, ur 1.024 pH, urine 7.0 Protein, ur ql Negative Glucose, ur ql 3+ (*) Ketones, ur 3+ (*) Bilirubin, ur Negative Blood, ur Trace (*) Urobilinogen, ur 0.2 Nitrite, ur Negative Leukocyte esterase, ur Negative Narrative: Urine pH is affected by diet, medications, systemic acid-base disturbances, and renal tubular function. pH may affect urinary stone formation. For example, urine pH below 6.0 may help reduce the tendency for calcium phosphate stones and pH greater than 6.0 may reduce the tendency for uric acid stone formation. Source: [employer].Last revised 05-13-2017 CBC WITH AUTO DIFFERENTIAL - Abnormal WBC 8.0 Hgb 14.2 Hct 42.2 Plt 295 MPV 10.7 RBC 5.16 MCV 81.8 MCH 27.5 MCHC 33.6 RDW CV 15.3 (*) RDW SD 45.9 NRBC abs 0.00 COMPREHENSIVE METABOLIC PANEL - Abnormal Sodium 139 Potassium, pl 3.7 Chloride 97 CO2 21 (*) Anion gap 21 (*) BUN 16 Creatinine 0.58 (*) Glucose 348 (*) Calcium 9.3 Bilirubin, total 0.3 Protein, pl 7.0 Albumin 4.4 Alk phos 71 ALT 12 AST 21 BLOOD GAS, VENOUS - Abnormal pH, Venous 7.36 PCO2, Venous 38 (*) PO2, Venous 74 HCO3 Venous, Calculated 21 BE, venous -4 SEPSIS LACTATE WITH REFLEX - Abnormal Sepsis Lactate 2.9 (*) SEPSIS LACTATE WITH REFLEX - Abnormal Sepsis Lactate 2.4 (*) BLOOD GAS, VENOUS - Abnormal pH, Venous 7.38 PCO2, Venous 35 (*) PO2, Venous 75 HCO3 Venous, Calculated 20 BE, venous -4 POCT GLUCOSE DEVICE - Abnormal Glucose, POC 384 (*) POCT GLUCOSE DEVICE - Abnormal Glucose, POC 269 (*) POCT GLUCOSE DEVICE - Abnormal Glucose, POC 241 (*) POCT HCG, URINE - Normal HCG, ur, POC Negative Lot Number [id number] QC Backgroud Clear Acceptable QC Control Line Acceptable LIPASE Lipase 12 DIFFERENTIAL AUTO Neutrophil abs 6.1 Imm gran abs 0.0 Lymphocyte abs 1.3 Monocyte abs 0.5 Eosinophil abs 0.0 Basophil abs 0.0 Neutrophil pct 76.4 Imm gran pct 0.4 Lymphocyte pct 16.6 Monocyte pct 5.8 Eosinophil pct 0.3 Basophil pct 0.5 EGFR GFR 131 URINALYSIS, MICROSCOPIC ONLY WBC, ur 0-5 RBC, ur 0-5 Epithelial cells, squamous, ur 1-5 Bacteria, ur Negative Hyaline casts, ur 1-5 SEPSIS LACTATE WITH REFLEX BASIC METABOLIC PANEL POCT GLUCOSE DEVICE No orders to display MDM MDM Number of Diagnoses or Management Options Diagnosis management comments: 23-year-old female history type 1 diabetes who presents today for acute nausea vomiting. Differential diagnosis includes DKA versus gastroenteritis versus appendicitis versus other acute abdominal pelvic pathology. Amount and/or Complexity of Data Reviewed Clinical lab tests: ordered and reviewed ED Course as of Feb 11 1432 Time: 02/10 1219 Comment: Left show normal White blood cell count and normal H&H. Chemistry with elevated glucose at 348. Increased gap at 21 and decrease in CO2 at 21. Lactate elevated at 2.9. Venous blood gas shows normal pH. By: Pato Haney MD Time: 02/10 1220 Comment: Given physical exam and laboratory tests findings at bleed the patient is on the cusp of going into DKA in treat her as such. Will try to normalize her blood glucose with insulin as well as provide IV rehydration. By: Pato Haney MD Time: 02/10 1423 Comment: 1422: Case discussed with Dr. Enamorado, [facility], who accepts patient for admission. By: Ken Reid Time: 02/10 1432 Comment: Patient admitted to the ICU in improved condition. By: Pato Haney MD Diabetic ketoacidosis without coma associated with type 1 diabetes mellitus (CMS/HCC) Non-intractable vomiting with nausea, unspecified vomiting type This note is prepared by Zheng Bates acting as a scribe for Pato Haney MD. I electronically signed this note at 2:32 PM on 02/10/2019. I, Pato Haney MD., have personally performed the services described in the documentation, reviewed the documentation, as recorded by the scribe in my presence, and it accurately and completely records my words and actions. Any errors in translation of speech to the EMR are related to software and not the clinician. Pato Haney MD 02/10/19 1432 * Johny Andrade RN - 02/10/2019 11:06 AM CDT Pt states that she woke up vomiting this morning. Pt states that she is a type 1 diabetic and usually feels this way when she is in DKA. Pt denies any pain at this time. documented in this encounter Miscellaneous Notes * Plan of Care - Ida Hair RN - 02/13/2019 4:02 PM CDT Problem: Health Behavior: Goal: Understanding of discharge needs will improve 02/13/2019 1602 by Ida Hair RN Outcome: Progressing 02/13/2019 1557 by Ida Hair RN Outcome: Progressing Problem: Lack of Knowledge: Goal: Ability to demonstrate use of device to measure blood glucose level will improve 02/13/2019 1602 by Ida Hair RN Outcome: Progressing 02/13/2019 1557 by Ida Hair RN Outcome: Progressing Goal: Ability to understand the physical conditions that increase the risk for unstable blood glucose will improve 02/13/2019 1602 by Ida Hair RN Outcome: Progressing 02/13/2019 1557 by Ida Hair RN Outcome: Progressing Problem: Health Behavior: Goal: Compliance with therapeutic regimen will improve 02/13/2019 1602 by Ida Hair RN Outcome: Progressing 02/13/2019 1557 by Ida Hair RN Outcome: Progressing Problem: Metabolic: Goal: Ability to maintain appropriate glucose levels will improve 02/13/2019 1602 by Ida Hair RN Outcome: Progressing 02/13/2019 1557 by Ida Hair RN Outcome: Progressing Problem: Nutritional: Goal: Ability to identify appropriate dietary choices will improve 02/13/2019 1602 by Ida Hair RN Outcome: Progressing 02/13/2019 1557 by Ida Hair RN Outcome: Progressing Problem: Lack of Knowledge: Goal: Verbalization of understanding the information provided will improve 02/13/2019 1602 by Ida Hair RN Outcome: Progressing 02/13/2019 1557 by Ida Hair RN Outcome: Progressing Problem: Physical Regulation: Goal: Complications related to the disease process, condition or treatment will be avoided or minimized 02/13/2019 1602 by Ida Hair RN Outcome: Progressing 02/13/2019 1557 by Ida Hair RN Outcome: Progressing Problem: Lack of Knowledge: Goal: Verbalization of understanding the information provided will improve 02/13/2019 1602 by Ida Hair RN Outcome: Progressing 02/13/2019 1557 by Ida Hair RN Outcome: Progressing Problem: Fluid Volume: Goal: Maintenance of adequate hydration will improve 02/13/2019 1602 by Ida Hair RN Outcome: Progressing 02/13/2019 1557 by Ida Hair RN Outcome: Progressing Goal: Will show no signs and symptoms of electrolyte imbalance 02/13/2019 1602 by Ida Hair RN Outcome: Progressing 02/13/2019 1557 by Ida Hair RN Outcome: Progressing Problem: Nutritional: Goal: Maintenance of adequate nutrition will improve 02/13/2019 1602 by Ida Hair RN Outcome: Progressing 02/13/2019 1557 by Ida Hair RN Outcome: Progressing Problem: Sensory: Goal: Occurrences of nausea will decrease 02/13/2019 1602 by Ida Hair RN Outcome: Progressing 02/13/2019 1557 by Ida Hair RN Outcome: Progressing Goals: Clinical Goals for the Shift: vital signs remain stable. maintain stable blood sugar and stabilize lab work. Increase diet as tolerated, Dr. Phillips to see pt., comfort and safety Summary: Vital signs have remained stable. Insulin gtt D/Cd and pt will resume basilar insulin and sliding scale. Dr. Phillips saw pt. Pt can start on clear liquid diet and will have EGD tomorrow. Pt has been up to bedside commode. Gait steady. Voiding without difficulty. Pt calls for help before getting out of bed. Pt will be transferred to medical bed. * Plan of Care - Kelsy Gooden RN - 02/13/2019 6:53 AM CDT Goals: Clinical Goals for the Shift: glucose control, acid/base balance, fluid/electrolyte balance, decreased n/v, rest, comfort, safety Summary: glucose has been 130-160 throughout shift, mostly in the 140s, declined antiemetics repeatedly, few episodes of dry heaves, n/v decreased compared to past 2 nights, still very tired & withdrawn, no c/o pain, assisted to BSC 3 times without complications Problem: Health Behavior: Goal: Understanding of discharge [...] glucose will improve Outcome: Not Progressing Problem: Nutritional: Goal: Ability to identify appropriate dietary choices will improve Outcome: Not Progressing * Provider Query - Christina Jauregui RN - 02/13/2019 6:13 AM CDT Conflicting documentation is present in the medical record. Please clarify the appropriate diagnosis and document in the medical record and on the form below. Indicate Present on Admission Status. Progress notes dated 02/11 and 04/14: Assessment/Plan - DKA Principal problem- DKA with coma ___ DKA without coma ___ DKA with coma ___ Other, specify below ___ Clinically unable to determine Clinical Indicators/Treatments: 23 yof presented with vomiting and DKA ERP- pt is alert with no sensory deficit Admit to ICU- GCS 15, A&O x 4 per nursing H&P: lethargic, sickly appearing. Unable to provide comprehensive history due to lethargy. PN- no new gross deficits appreciated. Per nursing pt remains A&O with a GCS of 15 since admission. Continue Insulin drip with close ICU monitoring. Provider Response: 02/13/19 PN at 2:57pm by Dr Enamorado states Diabetic ketoacidosis without coma. Noted in both the A/P and Principal problem. Response noted by Sam HERNANDEZ CDS on 02/14/19 at 0630 Use of terms such as likely, suspected, possible, or probable (associated with a specific diagnosisthat is being evaluated, monitored, or treated as if it exists) are acceptable and can be coded in the inpatient setting when documented at the time of discharge. This documentation will become part of the patient???s medical record. Sincerely, Christina Jauregui BSN, CDS Clinical [employer] [phone] * Plan of Care - Мария Collins RN - 02/12/2019 1:45 PM CDT Problem: Health Behavior: Goal: Understanding [...] will be avoided or minimized Outcome: Progressing Goals: Clinical Goals for the Shift: continued monitor and treat blood sugars, control N/V Summary: Patient still on glucostabilizer, fluids and iv abx. Pt sleeps a lot and does not complainof pain, * Plan of Care - Kelsy Gooden RN - 02/12/2019 6:56 AM CDT Goals: Clinical Goals for the Shift: continued glucose control, acid/base balance, fluid/electrolyte balance, control n/v, rest, comfort, safety Summary: glucose was well-controlled overnight, lost IV access around 0440, held IVF & insulin gtt, finally re-established IV access at 0630, [id number], resumed insulin & IVF as per previous orders/glucostabilizer. pt. continues to have n/v, most of the time refuses antiemetic meds, so stillunable to tolerate PO intake, per hospitalist plan to keep on insulin gtt until asymptomatic and/orgap 12-13. Low grade temps 99-100.3. Problem: Health Behavior: Goal: Understanding of discharge [...] dietary choices will improve Outcome: Not Progressing * Plan of Care - Kanchan Montalvo RN - 02/11/2019 7:15 PM CDT Goals: Clinical Goals for the Shift: Control N/V, control pain, Labs wnl, glucose controlled, d/c insulin drip, start PO diet Summary: Blood sugars continue to be up and down, Glucostabilizer cont., N/V cont, Compazine was affective * Plan of Care - Kelsy Gooden RN - 02/11/2019 7:23 AM CDT Goals: Clinical Goals for the Shift: stable glucose, acid/base balance, fluid/electrolyte balance, decreased n/v, rest, comfort, safety Summary: most recent glucose reading in the 120s, pt. to remain on insulin gtt until anion gap 12-[address] Sewell. Received 2gm Mag Sulfate rider, remains on IVF, acid/base & fluid/electrolytebalance have improved, continue Q4 BMPs. Emesis x1, only mild nausea since Zofran given. NPO. No c/o pain. T max 99. Emesis was positive for occult blood, pt. refused Lovenox, Pepcid was D/C'd, pt. will receive first dose of IV Protonix @ 0900. Problem: Health Behavior: Goal: Understanding of discharge [...] glucose will improve Outcome: Not Progressing Problem: Nutritional: Goal: Ability to identify appropriate dietary choices will improve Outcome: Not Progressing * Plan of Care - Arnold Cantu, MARY - 02/10/2019 4:56 PM CDT Problem: Health Behavior: Goal: Understanding of discharge needs will improve Outcome: Not Progressing Goals: Improve Blood sugar., nausea, vomiting. Summary: Has vomited twice. On Glucostabilizer. Vital signs stable. documented in this encounter Plan of Treatment Not on file documented as of this encounter Procedures Procedure Name Priority Date/Time Associated Diagnosis Comments POCT GLUCOSE DEVICE Routine 02/13/2019 4 :46 PM CDT EGFR Timed 02/13/2019 2:08 PM CDT PHOSPHORUS Timed 02/13/2019 2:08 PM CDT MAGNESIUM Timed 02/13/2019 2:08 PM CDT BASIC METABOLIC PANEL Timed 02/13/2019 2:08 PM CDT POCT GLUCOSE DEVICE Routine 02/13/2019 1 :58 PM CDT POCT GLUCOSE DEVICE Routine 02/13/2019 1 2:38 PM CDT POCT GLUCOSE DEVICE Routine 02/13/2019 1 1:36 AM CDT POCT GLUCOSE DEVICE Routine 02/13/2019 1 0:22 AM CDT POCT GLUCOSE DEVICE Routine 02/13/2019 8 :49 AM CDT EGFR Timed 02/13/2019 8:31 AM CDT PHOSPHORUS Timed 02/13/2019 8:31 AM CDT MAGNESIUM Timed 02/13/2019 8:31 AM CDT BASIC METABOLIC PANEL Timed 02/13/2019 8:31 AM CDT POCT GLUCOSE DEVICE Routine 02/13/2019 7 :53 AM CDT POCT GLUCOSE DEVICE Routine 02/13/2019 6 :23 AM CDT POCT GLUCOSE DEVICE Routine 02/13/2019 4 :37 AM CDT EGFR Timed 02/13/2019 4:32 AM CDT PHOSPHORUS Timed 02/13/2019 4:32 AM CDT MAGNESIUM Timed 02/13/2019 4:32 AM CDT BASIC METABOLIC PANEL Timed 02/13/2019 4:32 AM CDT POCT GLUCOSE DEVICE Routine 02/13/2019 3 :00 AM CDT POCT GLUCOSE DEVICE Routine 02/13/2019 1 :35 AM CDT EGFR Timed 02/13/2019 12:23 AM CDT PHOSPHORUS Timed 02/13/2019 12:23 AM CDT MAGNESIUM Timed 02/13/2019 12:23 AM CDT BASIC METABOLIC PANEL Timed 02/13/2019 12:23 AM CDT POCT GLUCOSE DEVICE Routine 02/13/2019 1 2:01 AM CDT POCT GLUCOSE DEVICE Routine 02/12/2019 9 :46 PM CDT EGFR Timed 02/12/2019 7:46 PM CDT PHOSPHORUS Timed 02/12/2019 7:46 PM CDT MAGNESIUM Timed 02/12/2019 7:46 PM CDT BASIC METABOLIC PANEL Timed 02/12/2019 7:46 PM CDT POCT GLUCOSE DEVICE Routine 02/12/2019 7 :31 PM CDT POCT GLUCOSE DEVICE Routine 02/12/2019 6 :18 PM CDT POCT GLUCOSE DEVICE Routine 02/12/2019 5 :16 PM CDT POCT GLUCOSE DEVICE Routine 02/12/2019 4 :10 PM CDT POCT GLUCOSE DEVICE Routine 02/12/2019 3 :10 PM CDT EGFR Timed 02/12/2019 2:48 PM CDT PHOSPHORUS Timed 02/12/2019 2:48 PM CDT MAGNESIUM Timed 02/12/2019 2:48 PM CDT BASIC METABOLIC PANEL Timed 02/12/2019 2:48 PM CDT POCT GLUCOSE DEVICE Routine 02/12/2019 2 :12 PM CDT POCT GLUCOSE DEVICE Routine 02/12/2019 1 :15 PM CDT POCT GLUCOSE DEVICE Routine 02/12/2019 1 1:53 AM CDT POCT GLUCOSE DEVICE Routine 02/12/2019 1 0:51 AM CDT POCT GLUCOSE DEVICE Routine 02/12/2019 9 :49 AM CDT POCT GLUCOSE DEVICE Routine 02/12/2019 8 :49 AM CDT PROTIME-INR STAT 02/12/2019 8:46 AM CDT POCT GLUCOSE DEVICE Routine 02/12/2019 7 :48 AM CDT EGFR Timed 02/12/2019 7:07 AM CDT DIFFERENTIAL AUTO Routine 02/12/2019 7:0 7 AM CDT CBC WITH AUTO DIFFERENTIAL Routine 02/12/2019 7:07 AM CDT APTT Routine 02/12/2019 7:07 AM CDT PHOSPHORUS Timed 02/12/2019 7:07 AM CDT MAGNESIUM Timed 02/12/2019 7:07 AM CDT BASIC METABOLIC PANEL Timed 02/12/2019 7:07 AM CDT POCT GLUCOSE DEVICE Routine 02/12/2019 6 :28 AM CDT EGFR Timed 02/12/2019 4:27 AM CDT PHOSPHORUS Timed 02/12/2019 4:27 AM CDT MAGNESIUM Timed 02/12/2019 4:27 AM CDT BASIC METABOLIC PANEL Timed 02/12/2019 4:27 AM CDT POCT GLUCOSE DEVICE Routine 02/12/2019 3 :06 AM CDT POCT GLUCOSE DEVICE Routine 02/12/2019 1 :04 AM CDT POCT GLUCOSE DEVICE Routine 02/11/2019 1 1:19 PM CDT EGFR Timed 02/11/2019 11:06 PM CDT PHOSPHORUS Timed 02/11/2019 11:06 PM CDT MAGNESIUM Timed 02/11/2019 11:06 PM CDT BASIC METABOLIC PANEL Timed 02/11/2019 11:06 PM CDT POCT GLUCOSE DEVICE Routine 02/11/2019 9 :06 PM CDT POCT GLUCOSE DEVICE Routine 02/11/2019 6 :44 PM CDT POCT GLUCOSE DEVICE Routine 02/11/2019 5 :28 PM CDT POCT GLUCOSE DEVICE Routine 02/11/2019 4 :03 PM CDT POCT GLUCOSE DEVICE Routine 02/11/2019 3 :02 PM CDT POCT GLUCOSE DEVICE Routine 02/11/2019 2 :13 PM CDT POCT GLUCOSE DEVICE Routine 02/11/2019 1 :00 PM CDT POCT GLUCOSE DEVICE Routine 02/11/2019 1 1:34 AM CDT DRUGS OF ABUSE SCREEN, URINE WITHOUT CONFIRMATION Routine 02/11/2019 10:09 AM CDT POCT GLUCOSE DEVICE Routine 02/11/2019 1 0:06 AM CDT POCT GLUCOSE DEVICE Routine 02/11/2019 9 :09 AM CDT POCT GLUCOSE DEVICE Routine 02/11/2019 8 :08 AM CDT EGFR Timed 02/11/2019 7:54 AM CDT PHOSPHORUS Timed 02/11/2019 7:54 AM CDT MAGNESIUM Timed 02/11/2019 7:54 AM CDT BASIC METABOLIC PANEL Timed 02/11/2019 7:54 AM CDT POCT GLUCOSE DEVICE Routine 02/11/2019 6 :32 AM CDT POCT GLUCOSE DEVICE Routine 02/11/2019 4 :32 AM CDT EGFR Timed 02/11/2019 4:14 AM CDT DIFFERENTIAL AUTO Routine 02/11/2019 4:1 4 AM CDT CBC WITH AUTO DIFFERENTIAL Routine 02/11/2019 4:14 AM CDT PHOSPHORUS Timed 02/11/2019 4:14 AM CDT MAGNESIUM Timed 02/11/2019 4:14 AM CDT BASIC METABOLIC PANEL Timed 02/11/2019 4:14 AM CDT POCT GLUCOSE DEVICE Routine 02/11/2019 2 :36 AM CDT POCT GLUCOSE DEVICE Routine 02/11/2019 1 :25 AM CDT LACTATE Timed 02/11/2019 12:26 AM CDT EGFR Timed 02/11/2019 12:26 AM CDT PHOSPHORUS Timed 02/11/2019 12:26 AM CDT MAGNESIUM Timed 02/11/2019 12:26 AM CDT BASIC METABOLIC PANEL Timed 02/11/2019 12:26 AM CDT POCT GLUCOSE DEVICE Routine 02/10/2019 1 1:39 PM CDT GASTRIC PH Routine 02/10/2019 10:15 PM CDT OCCULT BLOOD GASTRIC Routine 02/10/2019 10:15 PM CDT POCT GLUCOSE DEVICE Routine 02/10/2019 1 0:13 PM CDT LACTATE Timed 02/10/2019 8:01 PM CDT EGFR STAT 02/10/2019 8:01 PM CDT BASIC METABOLIC PANEL STAT 02/10/2019 8:01 PM CDT THYROID FUNCTION CASCADE Add-On 02/10/2019 7:58 PM CDT PHOSPHORUS Routine 02/10/2019 7:58 PM CDT MAGNESIUM Routine 02/10/2019 7:58 PM CDT POCT GLUCOSE DEVICE Routine 02/10/2019 6 :28 PM CDT POCT GLUCOSE DEVICE Routine 02/10/2019 5 :42 PM CDT POCT GLUCOSE DEVICE Routine 02/10/2019 4 :35 PM CDT SEPSIS LACTATE WITH REFLEX Timed 02/10/2019 4:18 PM CDT POCT GLUCOSE DEVICE Routine 02/10/2019 3 :35 PM CDT POCT GLUCOSE DEVICE Routine 02/10/2019 2 :20 PM CDT SEPSIS LACTATE WITH REFLEX Timed 02/10/2019 2:13 PM CDT EGFR Timed 02/10/2019 2:13 PM CDT BLOOD GAS, VENOUS Timed 02/10/2019 2:1 3 PM CDT BASIC METABOLIC PANEL Timed 02/10/2019 2:13 PM CDT POCT GLUCOSE DEVICE Routine 02/10/2019 1 :30 PM CDT POCT HCG, URINE Routine 02/10/2019 12:25 PM CDT URINALYSIS AND REFLEX TO MICROSCOPIC AND CULTURE STAT 02/10/2019 12:19 PM CDT URINALYSIS, MICROSCOPIC ONLY STAT 02/10/2019 12:19 PM CDT POCT GLUCOSE DEVICE Routine 02/10/2019 1 2:17 PM CDT SEPSIS LACTATE WITH REFLEX STAT 02/10/2019 11:41 AM CDT EGFR STAT 02/10/2019 11:41 AM CDT DIFFERENTIAL AUTO STAT 02/10/2019 11: 41 AM CDT CBC WITH AUTO DIFFERENTIAL STAT 02/10/2019 11:41 AM CDT LIPASE STAT 02/10/2019 11:41 AM CDT BLOOD GAS, VENOUS STAT 02/10/2019 11: 41 AM CDT COMPREHENSIVE METABOLIC PANEL STAT 02/10/2019 11:41 AM CDT documented in this encounter Results * (ABNORMAL) POCT glucose (02/13/2019 4:46 PM CDT) Glucose, POC 212(H) 71 - 98 mg/dL [facility] ([place]) Blood specimen (specimen) 02/13/2019 4:46 PM CDT 02/13/2019 4:46 PM CDT us Sanjuanita Enamorado MD LAB POCT ORDERABLES - DEVICE Final Result [facility] ([place]) [address] [place] [address] * eGFR (02/13/2019 2:08 PM CDT) eGFR 156 mL/min/1.7 3 m2 [facility] ([place]) Comment: Interpretive Data Reference Interval Normal ?>/= 90 mL/min/1.73m2 Mildly decreased* ? 60 - 89 mL/min/1.73m2 Mildly to moderately decreased ?45 - 59 mL/min/1.73m2 Moderately to severely decreased ??30 - 44 mL/min/1.73m2 Severely decreased ?15 - 29 mL/min/1.73m2 Kidney Failure ?< 15 ??mL/min/1.73m2 *Relative to young adult level If -Montserratian multiply value by 1.16. Estimated glomerular filtration [...] was last reviewed 2015. Blood specimen (specimen) 02/13/2019 2:08 PM CDT 02/13/2019 2:13 PM CDT Gio Sewell MD LAB BLOOD ORDERABLES Final Re sult Performing Organization Address [facility] Co de Phone Number [facility] ([place]) [address] [place] [address] * Phosphorus (02/13/2019 2:08 PM CDT) Phosphorus, pl 2.7 2.3 - 4.5 mg/dL [facility] ([place]) Blood specimen (specimen) 02/13/2019 2:08 PM CDT 02/13/2019 2:13 PM CDT Gio Sewell MD LAB BLOOD ORDERABLES Final Re sult Performing Organization Address [facility] Co de Phone Number [facility] ([place]) [address] [place] [address] * Magnesium (02/13/2019 2:08 PM CDT) Magnesium 1.8 1.6 - 2.4 mg/dL [facility] ([place]) Blood specimen (specimen) 02/13/2019 2:08 PM CDT 02/13/2019 2:13 PM CDT Gio Sewell MD LAB BLOOD ORDERABLES Final Re sult Performing Organization Address [facility] de Phone Number [facility] ([place]) [address] [place] [address] * (ABNORMAL) Basic metabolic panel (02/13/2019 2:08 PM CDT) Sodium 136 135 - 145 mmol/L [facility] ([place]) Potassium, pl 2.9(C) 3.3 - 4.9 mmol/L [facility] ([place]) Comment:Critical Result call ed to and read back by [facility], DATE: 2019-02-13 14:34:24 BY: LUZ MARINA LANDEROS Chloride 96(L) 97 - 110 mmol/L [facility] ([place]) CO2 25 22 - 32 mmol/L [facility] ([place]) Anion gap 15 2 - 15 mmol/L [facility] ([place]) BUN 3(L) 8 - 25 mg/dL [facility] ([place]) Creatinine 0.34(L) 0.60 - 1.10 mg/dL [facility] ([place]) Glucose 146 70 - 199 mg/dL [facility] ([place]) [...] [facility] ([place]) Blood specimen (specimen) 02/13/2019 2:08 PM CDT 02/13/2019 2:13 PM CDT us Gio Sewell MD LAB BLOOD ORDERABLES Final Re sult Performing Organization Address [facility] Co de Phone Number [facility] ([place]) [address] [place] [address] * (ABNORMAL) POCT glucose (02/13/2019 1:58 PM CDT) Glucose, POC 132(H) 71 - 98 mg/dL [facility] ([place]) Blood specimen (specimen) 02/13/2019 1:58 PM CDT 02/13/2019 1:58 PM CDT Sanjuanita Enamorado MD LAB POCT ORDERABLES - DEVICE Final Result Performing Organization Address [facility]/ZIP Co de Phone Number [facility] ([place]) [address] [place] [address] * (ABNORMAL) POCT glucose (02/13/2019 12:38 PM CDT) Glucose, POC 139(H) 71 - 98 mg/dL [facility] ([place]) Blood specimen (specimen) 02/13/2019 12:38 PM CDT 02/13/2019 12:38 PM CDT us Sanjuanita Enamorado MD LAB POCT ORDERABLES - DEVICE Final Result Performing Organization Address [facility]/ZIP Co de Phone Number [facility] ([place]) [address] [place] [address] * (ABNORMAL) POCT glucose (02/13/2019 11:36 AM CDT) Glucose, POC 133(H) 71 - 98 mg/dL [facility] ([place]) Blood specimen (specimen) 02/13/2019 11:36 AM CDT 02/13/2019 11:36 AM CDT us Sanjuanita Enamorado MD LAB POCT ORDERABLES - DEVICE Final Result Performing Organization Address [facility] Co de Phone Number [facility] ([place]) [address] [place] [address] * (ABNORMAL) POCT glucose (02/13/2019 10:22 AM CDT) Glucose, POC 142(H) 71 - 98 mg/dL [facility] ([place]) Blood specimen (specimen) 02/13/2019 10:22 AM CDT 02/13/2019 10:22 AM CDT Sanjuanita Enamorado MD LAB POCT ORDERABLES - DEVICE Final Result Performing Organization Address [facility] Co de Phone Number [facility] ([place]) [address] [place] [address] * (ABNORMAL) POCT glucose (02/13/2019 8:49 AM CDT) Glucose, POC 136(H) 71 - 98 mg/dL [facility] ([place]) Blood specimen (specimen) 02/13/2019 8:49 AM CDT 02/13/2019 8:49 AM CDT Sanjuanita Enamorado MD LAB POCT ORDERABLES - DEVICE Final Result [facility] ([place]) [address] [place] [address] * eGFR (02/13/2019 8:31 AM CDT) eGFR 170 mL/min/1.7 3 m2 [facility] ([place]) Comment: Interpretive Data Reference Interval Normal ?>/= 90 mL/min/1.73m2 Mildly decreased* ? 60 - 89 mL/min/1.73m2 Mildly to moderately decreased ?45 - 59 mL/min/1.73m2 Moderately to severely decreased ??30 - 44 mL/min/1.73m2 Severely decreased ?15 - 29 mL/min/1.73m2 Kidney Failure ?< 15 ??mL/min/1.73m2 *Relative to young adult level If -Montserratian multiply value by 1.16. Estimated glomerular filtration [...] was last reviewed 2015. Blood specimen (specimen) 02/13/2019 8:31 AM CDT 02/13/2019 8:52 AM CDT us Gio Sewell MD LAB BLOOD ORDERABLES Final Re sult Performing Organization Address City/[facility]/ZIP Co de Phone Number [facility] ([place]) [address] [place] [address] * (ABNORMAL) Phosphorus (02/13/2019 8:31 AM CDT) Phosphorus, pl 2.1(L) 2.3 - 4.5 mg/dL [facility] ([place]) Blood specimen (specimen) 02/13/2019 8:31 AM CDT 02/13/2019 8:38 AM CDT us Gio Sewell MD LAB BLOOD ORDERABLES Final Re sult Performing Organization Address [facility] Co de Phone Number [facility] ([place]) [address] [place] [address] * Magnesium (02/13/2019 8:31 AM CDT) Magnesium 1.8 1.6 - 2.4 mg/dL [facility] ([place]) Blood specimen (specimen) 02/13/2019 8:31 AM CDT 02/13/2019 8:38 AM CDT Gio Sewell MD LAB BLOOD ORDERABLES Final Re sult Performing Organization Address [facility] Co de Phone Number [facility] ([place]) [address] [place] [address] * (ABNORMAL) Basic metabolic panel (02/13/2019 8:31 AM CDT) Sodium 135 135 - 145 mmol/L [facility] ([place]) Potassium, pl 2.9(C) 3.3 - 4.9 mmol/L [facility] ([place]) Comment:Critical Result call ed to and read back by Kailyn Fritz/ICU, DATE: 2019-02-13 09:54:39 BY: Juan Pablo Wilson Chloride 97 97 - 110 mmol/L [facility] ([place]) CO2 25 22 - 32 mmol/L [facility] ([place]) Anion gap 13 2 - 15 mmol/L [facility] ([place]) BUN 3(L) 8 - 25 mg/dL [facility] ([place]) Creatinine 0.26(L) 0.60 - 1.10 mg/dL [facility] ([place]) Glucose 159 70 - 199 mg/dL [facility] ([place]) Comment: Interpretive Data Fasting [...] 2017. Calcium 8.6 8.5 - 10.3 mg/dL [facility] ([place]) Blood specimen (specimen) 02/13/2019 8:31 AM CDT 02/13/2019 8:38 AM CDT us Gio Sewell MD LAB BLOOD ORDERABLES Final Re sult Performing Organization Address [facility] Co de Phone Number TOM[facility] ([place]) [address] [place] [address] * (ABNORMAL) POCT glucose (02/13/2019 7:53 AM CDT) [facility] Signature Glucose, POC 140(H) 71 - 98 mg/dL [facility] ([place]) Blood specimen (specimen) 02/13/2019 7:53 AM CDT 02/13/2019 7:53 AM CDT us Sanjuanita Enamorado MD LAB POCT ORDERABLES - DEVICE Final Result Performing Organization Address [facility] Co de Phone Number TOMY [facility] ([place]) [address] [place] [address] * (ABNORMAL) POCT glucose (02/13/2019 6:23 AM CDT) Glucose, POC 148(H) 71 - 98 mg/dL [facility] ([place]) Blood specimen (specimen) 02/13/2019 6:23 AM CDT 02/13/2019 6:23 AM CDT Sanjuanita Enamorado MD LAB POCT ORDERABLES - DEVICE Final Result Performing Organization Address [facility] Co de Phone Number [facility] [address] [place] [address] * (ABNORMAL) POCT glucose (02/13/2019 4:37 AM CDT) Pathologist [facility] [place] Glucose, POC 142(H) 71 - 98 mg/dL [facility] ([place]) Blood specimen (specimen) 02/13/2019 4:37 AM CDT 02/13/2019 4:37 AM CDT Sanjuanita Enamorado MD LAB POCT ORDERABLES - DEVICE Final Result Performing Organization Address [facility] de Phone Number [facility] [address] [place] [address] * eGFR (02/13/2019 4:32 AM CDT) eGFR 161 mL/min/1.7 3 m2 [facility] ([place]) Comment: Interpretive Data Reference Interval Normal ?>/= 90 mL/min/1.73m2 Mildly decreased* ? 60 - 89 mL/min/1.73m2 Mildly to moderately decreased ?45 - 59 mL/min/1.73m2 Moderately to severely decreased ??30 - 44 mL/min/1.73m2 Severely decreased ?15 - 29 mL/min/1.73m2 Kidney Failure ?< 15 ??mL/min/1.73m2 *Relative to young adult level If -Montserratian multiply value by 1.16. Estimated glomerular filtration [...] was last reviewed 2015. Blood specimen (specimen) 02/13/2019 4:32 AM CDT 02/13/2019 4:54 AM CDT Gio Sewell MD LAB BLOOD ORDERABLES Final Re sult Performing Organization Address [facility] Co de Phone Number TOMY SAHU ([place]) [address] [place] [address] * (ABNORMAL) Phosphorus (02/13/2019 4:32 AM CDT) Phosphorus, pl 1.8(L) 2.3 - 4.5 mg/dL TOMY SAHU ([place]) Blood specimen (specimen) 02/13/2019 4:32 AM CDT 02/13/2019 4:54 AM CDT Gio Sewell MD LAB BLOOD ORDERABLES Final Re sult Performing Organization Address [facility] Co de Phone Number TOMY SAHU ([place]) [address] [place] [address] * Magnesium (02/13/2019 4:32 AM CDT) Magnesium 1.9 1.6 - 2.4 mg/dL TOMY SAHU ([place]) Blood specimen (specimen) 02/13/2019 4:32 AM CDT 02/13/2019 4:54 AM CDT Gio Sewell MD LAB BLOOD ORDERABLES Final Re sult Performing Organization Address [facility]/ZIP Co de Phone Number TOMY SAHU ([place]) [address] [place] [address] * (ABNORMAL) Basic metabolic panel (02/13/2019 4:32 AM CDT) Sodium 134(L) 135 - 145 mmol/L [facility] ([place]) Potassium, pl 3.2(L) 3.3 - 4.9 mmol/L [facility] ([place]) Chloride 97 97 - 110 mmol/L [facility] ([place]) CO2 22 22 - 32 mmol/L [facility] ([place]) Anion gap 15 2 - 15 mmol/L [facility] ([place]) BUN 4(L) 8 - 25 mg/dL [facility] ([place]) Creatinine 0.31(L) 0.60 - 1.10 mg/dL [facility] ([place]) Glucose 162 70 - 199 mg/dL [facility] ([place]) Comment: Interpretive Data Fasting [...] 2017. Calcium 8.7 8.5 - 10.3 mg/dL [facility] ([place]) Blood specimen (specimen) 02/13/2019 4:32 AM CDT 02/13/2019 4:54 AM CDT us Gio Sewell MD LAB BLOOD ORDERABLES Final Re sult TOMY SAHU ([place]) [address] [place] [address] * (ABNORMAL) POCT glucose (02/13/2019 3:00 AM CDT) Glucose, POC 139(H) 71 - 98 mg/dL [facility] Blood specimen (specimen) 02/13/2019 3:00 AM CDT 02/13/2019 3:00 AM CDT Sanjuanita Enamorado MD LAB POCT ORDERABLES - DEVICE Final Result Performing Organization Address [facility] Co de Phone Number TOMY SAHU ([place]) [address] [place] [address] * (ABNORMAL) POCT glucose (02/13/2019 1:35 AM CDT) Glucose, POC 147(H) 71 - 98 mg/dL [facility] ([place]) Blood specimen (specimen) 02/13/2019 1:35 AM CDT 02/13/2019 1:35 AM CDT Sanjuanita Enamorado MD LAB POCT ORDERABLES - DEVICE Final Result Performing Organization Address [facility] de Phone Number TOMY SAHU ([place]) [address] [place] [address] * eGFR (02/13/2019 12:23 AM CDT) eGFR 161 mL/min/1.7 3 m2 [facility] ([place]) Comment: Interpretive Data Reference Interval Normal ?>/= 90 mL/min/1.73m2 Mildly decreased* ? 60 - 89 mL/min/1.73m2 Mildly to moderately decreased ?45 - 59 mL/min/1.73m2 Moderately to severely decreased ??30 - 44 mL/min/1.73m2 Severely decreased ?15 - 29 mL/min/1.73m2 Kidney Failure ?< 15 ??mL/min/1.73m2 *Relative to young adult level If -Montserratian multiply value by 1.16. Estimated glomerular filtration [...] was last reviewed 2015. Blood specimen (specimen) 02/13/2019 12:23 AM CDT 02/13/2019 12:31 AM CDT Gio Sewell MD LAB BLOOD ORDERABLES Final Re sult Performing Organization Address [facility] Co de Phone Number TOMY SAHU ([place]) [address] [place] [address] * (ABNORMAL) Phosphorus (02/13/2019 12:23 AM CDT) Phosphorus, pl 2.1(L) 2.3 - 4.5 mg/dL TOMY LUIS ALBERTO ([place]) Blood specimen (specimen) 02/13/2019 12:23 AM CDT 02/13/2019 12:31 AM CDT Gio Sewell MD LAB BLOOD ORDERABLES Final Re sult Performing Organization Address [facility] Co de Phone Number TOMY SAHU ([place]) [address] [place] [address] * Magnesium (02/13/2019 12:23 AM CDT) Magnesium 1.9 1.6 - 2.4 mg/dL [facility] SA[facility] ([place]) Blood specimen (specimen) 02/13/2019 12:23 AM CDT 02/13/2019 12:31 AM CDT Gio Sewell MD LAB BLOOD ORDERABLES Final Re sult Performing Organization Address [facility] Co de Phone Number TOMY SAHU ([place]) [address] [place] [address] * (ABNORMAL) Basic metabolic panel (02/13/2019 12:23 AM CDT) Sodium 137 135 - 145 mmol/L [facility] ([place]) Potassium, pl 3.3 3.3 - 4.9 mmol/L [facility] ([place]) Chloride 99 97 - 110 mmol/L [facility] ([place]) CO2 22 22 - 32 mmol/L [facility] ([place]) Anion gap 16(H) 2 - 15 mmol/L [facility] ([place]) BUN 5(L) 8 - 25 mg/dL [facility] ([place]) Creatinine 0.31(L) 0.60 - 1.10 mg/dL [facility] ([place]) Glucose 138 70 - 199 mg/dL [facility] ([place]) Comment: Interpretive Data Fasting [...] 2017. Calcium 8.8 8.5 - 10.3 mg/dL [facility] ([place]) Blood specimen (specimen) 02/13/2019 12:23 AM CDT 02/13/2019 12:31 AM CDT us Gio Sewell MD LAB BLOOD ORDERABLES Final Re sult TOMY LUQUE) [address] [place] [address] * (ABNORMAL) POCT glucose (02/13/2019 12:01 AM CDT) Glucose, POC 129(H) 71 - 98 mg/dL [facility] ([place]) Blood specimen (specimen) 02/13/2019 12:01 AM CDT 02/13/2019 12:01 AM CDT us Sanjuanita Enamorado MD LAB POCT ORDERABLES - DEVICE Final Result Performing Organization Address City/[facility]/ZIP Co de Phone Number TOMY SAHU ([place]) [address] [place] [address] * (ABNORMAL) POCT glucose (02/12/2019 9:46 PM CDT) Glucose, POC 117(H) 71 - 98 mg/dL TOMY SAHU ([place]) Blood specimen (specimen) 02/12/2019 9:46 PM CDT 02/12/2019 9:46 PM CDT us Sanjuanita Enamorado MD LAB POCT ORDERABLES - DEVICE Final Result Performing Organization Address [facility] Co de Phone Number TOMY SAHU ([place]) [address] [place] [address] * eGFR (02/12/2019 7:46 PM CDT) eGFR 156 mL/min/1.7 3 m2 TOMY SAHU ([place]) Comment: Interpretive Data Reference Interval Normal ?>/= 90 mL/min/1.73m2 Mildly decreased* ? 60 - 89 mL/min/1.73m2 Mildly to moderately decreased ?45 - 59 mL/min/1.73m2 Moderately to severely decreased ??30 - 44 mL/min/1.73m2 Severely decreased ?15 - 29 mL/min/1.73m2 Kidney Failure ?< 15 ??mL/min/1.73m2 *Relative to young adult level If -Montserratian multiply value by 1.16. Estimated glomerular filtration [...] was last reviewed 2015. Blood specimen (specimen) 02/12/2019 7:46 PM CDT 02/12/2019 7:48 PM CDT Gio Sewell MD LAB BLOOD ORDERABLES Final Re sult Performing Organization Address [facility]/ZIP Co de Phone Number TOMY SAHU ([place]) [address] [place] [address] * (ABNORMAL) Phosphorus (02/12/2019 7:46 PM CDT) Phosphorus, pl 1.9(L) 2.3 - 4.5 mg/dL [facility] ([place]) Blood specimen (specimen) 02/12/2019 7:46 PM CDT 02/12/2019 7:48 PM CDT Gio Sewell MD LAB BLOOD ORDERABLES Final Re sult Performing Organization Address [facility] Co de Phone Number TOMY SAHU ([place]) [address] [place] [address] * Magnesium (02/12/2019 7:46 PM CDT) Magnesium 1.9 1.6 - 2.4 mg/dL [facility] ([place]) Blood specimen (specimen) 02/12/2019 7:46 PM CDT 02/12/2019 7:48 PM CDT Gio Sewell MD LAB BLOOD ORDERABLES Final Re sult Performing Organization Address [facility] Co de Phone Number TOMY SAHU ([place]) [address] [place] [address] * (ABNORMAL) Basic metabolic panel (02/12/2019 7:46 PM CDT) Sodium 138 135 - 145 mmol/L [facility] ([place]) Potassium, pl 3.0(C) 3.3 - 4.9 mmol/L [facility] ([place]) Comment:Critical Result call ed to and read back by kelsy gooden [facility], DATE: 2019-02-12 20:15:20 BY: [facility] [employer] Chloride 102 97 - 110 mmol/L [facility] ([place]) CO2 21(L) 22 - 32 mmol/L [facility] ([place]) Anion gap 15 2 - 15 mmol/L [facility] ([place]) BUN 5(L) 8 - 25 mg/dL [facility] ([place]) Creatinine 0.34(L) 0.60 - 1.10 mg/dL [facility] ([place]) Glucose 106 70 - 199 mg/dL [facility] ([place]) [...] mg/dL [facility] ([place]) Blood specimen (specimen) 02/12/2019 7:46 PM CDT 02/12/2019 7:48 PM CDT us Gio Sewell MD LAB BLOOD ORDERABLES Final Re sult [facility] ([place]) [address] [place] [address] * (ABNORMAL) POCT glucose (02/12/2019 7:31 PM CDT) Glucose, POC 101(H) 71 - 98 mg/dL [facility] ([place]) Blood specimen (specimen) 02/12/2019 7:31 PM CDT 02/12/2019 7:31 PM CDT Sanjuanita Enamorado MD LAB POCT ORDERABLES - DEVICE Final Result Performing Organization Address [facility] Co de Phone Number TOMY SAHU ([place]) [address] [place] [address] * (ABNORMAL) POCT glucose (02/12/2019 6:18 PM CDT) Glucose, POC 137(H) 71 - 98 mg/dL TOMY SAHU ([place]) Blood specimen (specimen) 02/12/2019 6:18 PM CDT 02/12/2019 6:18 PM CDT Sanjuanita Enamorado MD LAB POCT ORDERABLES - DEVICE Final Result Performing Organization Address [facility] de Phone Number TOMY SAHU ([place]) [address] [place] [address] * (ABNORMAL) POCT glucose (02/12/2019 5:16 PM CDT) Glucose, POC 201(H) 71 - 98 mg/dL TOMY SAHU ([place]) Blood specimen (specimen) 02/12/2019 5:16 PM CDT 02/12/2019 5:16 PM CDT Sanjuanita Enamorado MD LAB POCT ORDERABLES - DEVICE Final Result Performing Organization Address [facility] Co de Phone Number TOMY SAHU ([place]) [address] [place] [address] * (ABNORMAL) POCT glucose (02/12/2019 4:10 PM CDT) Glucose, POC 234(H) 71 - 98 mg/dL TOMY SAHU ([place]) Blood specimen (specimen) 02/12/2019 4:10 PM CDT 02/12/2019 4:10 PM CDT us Sanjuanita Enamorado MD LAB POCT ORDERABLES - DEVICE Final Result TOMY SAHU ([place]) [address] [place] [address] * (ABNORMAL) POCT glucose (02/12/2019 3:10 PM CDT) Glucose, POC 201(H) 71 - 98 mg/dL TOMY SAHU ([place]) Blood specimen (specimen) 02/12/2019 3:10 PM CDT 02/12/2019 3:10 PM CDT Sanjuanita Enamorado MD LAB POCT ORDERABLES - DEVICE Final Result Performing Organization Address [facility] Co de Phone Number TOMY SAHU ([place]) [address] [place] [address] * eGFR (02/12/2019 2:48 PM CDT) eGFR 148 mL/min/1.7 3 m2 TOMY [facility] ([place]) Comment: Interpretive Data Reference Interval Normal ?>/= 90 mL/min/1.73m2 Mildly decreased* ? 60 - 89 mL/min/1.73m2 Mildly to moderately decreased ?45 - 59 mL/min/1.73m2 Moderately to severely decreased ??30 - 44 mL/min/1.73m2 Severely decreased ?15 - 29 mL/min/1.73m2 Kidney Failure ?< 15 ??mL/min/1.73m2 *Relative to young adult level If -Montserratian multiply value by 1.16. Estimated glomerular filtration [...] was last reviewed 2015. Blood specimen (specimen) 02/12/2019 2:48 PM CDT 02/12/2019 2:52 PM CDT Gio Sewell MD LAB BLOOD ORDERABLES Final Re sult Performing Organization Address City/[facility]/ZIP Co de Phone Number TOMY SAHU ([place]) [address] [place] [address] * Phosphorus (02/12/2019 2:48 PM CDT) Phosphorus, pl 2.7 2.3 - 4.5 mg/dL TOMY [facility] ([place]) Blood specimen (specimen) 02/12/2019 2:48 PM CDT 02/12/2019 2:52 PM CDT Gio Sewell MD LAB BLOOD ORDERABLES Final Re sult Performing Organization Address [facility] Co de Phone Number TOMY [facility] ([place]) [address] [place] [address] * Magnesium (02/12/2019 2:48 PM CDT) Magnesium 2.0 1.6 - 2.4 mg/dL [facility] Blood specimen (specimen) 02/12/2019 2:48 PM CDT 02/12/2019 2:52 PM CDT Gio Sewell MD LAB BLOOD ORDERABLES Final Re sult Performing Organization Address [facility] Co de Phone Number TOMY SAHU ([place]) [address] [place] [address] * (ABNORMAL) Basic metabolic panel (02/12/2019 2:48 PM CDT) Sodium 137 135 - 145 mmol/L [facility] ([place]) Potassium, pl 3.6 3.3 - 4.9 mmol/L [facility] ([place]) Chloride 100 97 - 110 mmol/L [facility] ([place]) CO2 16(L) 22 - 32 mmol/L [facility] ([place]) Anion gap 21(H) 2 - 15 mmol/L [facility] ([place]) BUN 7(L) 8 - 25 mg/dL [facility] ([place]) Creatinine 0.40(L) 0.60 - 1.10 mg/dL [facility] ([place]) Glucose 300(H) 70 - 199 mg/dL [facility] ([place]) Comment: Interpretive Data Fasting [...] 2017. Calcium 8.2(L) 8.5 - 10.3 mg/dL [facility] ([place]) Blood specimen (specimen) 02/12/2019 2:48 PM CDT 02/12/2019 2:52 PM CDT us Gio Sewell MD LAB BLOOD ORDERABLES Final Re sult TOMY [facility] ([place]) [address] [place], [place] [id number] * (ABNORMAL) POCT glucose (02/12/2019 2:12 PM CDT) Glucose, POC 178(H) 71 - 98 mg/dL [facility] ([place]) Blood specimen (specimen) 02/12/2019 2:12 PM CDT 02/12/2019 2:12 PM CDT us Sanjuanita Enamorado MD LAB POCT ORDERABLES - DEVICE Final Result Performing Organization Address City/[facility]/ZIP Co de Phone Number TOMY SAHU ([place]) [address] [place] [address] * (ABNORMAL) POCT glucose (02/12/2019 1:15 PM CDT) Glucose, POC 155(H) 71 - 98 mg/dL TOMY SAHU ([place]) Blood specimen (specimen) 02/12/2019 1:15 PM CDT 02/12/2019 1:15 PM CDT Sanjuanita Enamorado MD LAB POCT ORDERABLES - DEVICE Final Result Performing Organization Address [facility] Co de Phone Number TOMY ASHU ([place]) [address] [place] [address] * POCT glucose (02/12/2019 11:53 AM CDT) Glucose, POC 74 71 - 98 mg/dL TOMY SAHU ([place]) Blood specimen (specimen) 02/12/2019 11:53 AM CDT 02/12/2019 11:53 AM CDT Sanjuanita Enamorado MD LAB POCT ORDERABLES - DEVICE Final Result Performing Organization Address [facility] Co de Phone Number TOMY SAHU ([place]) [address] [place] [address] * (ABNORMAL) POCT glucose (02/12/2019 10:51 AM CDT) Glucose, POC 133(H) 71 - 98 mg/dL TOMY SAHU ([place]) Blood specimen (specimen) 02/12/2019 10:51 AM CDT 02/12/2019 10:51 AM CDT Sanjuanita Enamorado MD LAB POCT ORDERABLES - DEVICE Final Result Performing Organization Address City/[facility]/ZIP Co de Phone Number TOMY SAHU ([place]) [address] [place] [address] * (ABNORMAL) POCT glucose (02/12/2019 9:49 AM CDT) Glucose, POC 152(H) 71 - 98 mg/dL TOMY SAHU ([place]) Blood specimen (specimen) 02/12/2019 9:49 AM CDT 02/12/2019 9:49 AM CDT Sanjuanita Enamorado MD LAB POCT ORDERABLES - DEVICE Final Result Performing Organization Address [facility] Co de Phone Number TOMY SAHU ([place]) [address] [place] [address] * (ABNORMAL) POCT glucose (02/12/2019 8:49 AM CDT) Glucose, POC 171(H) 71 - 98 mg/dL TOMY [facility] ([place]) Blood specimen (specimen) 02/12/2019 8:49 AM CDT 02/12/2019 8:49 AM CDT Sanjuanita Enamorado MD LAB POCT ORDERABLES - DEVICE Final Result Performing Organization Address [facility] de Phone Number TOMY SAHU ([place]) [address] [place] [address] * (ABNORMAL) Protime-INR (02/12/2019 8:46 AM CDT) PT 13.3(H) 9.5 - 13.0 sec TOMY [facility] ([place]) INR 1.18 0.90 - 1.20 TOMY [facility] ([place]) Comment: Interpretive Data Recommended ranges for Protime INR: 2.0 - 3.0 Most indications for Warfarin therapy (e.g. Treatment of DVT, PE, bioprosthetic valve replacement, prophylaxis venous thrombosis, atrial fibrillation). 2.5 - 3.5 Mechanical mitral valve or dual mechanical mitral and Aortic valve replacement. Current Interpretive Data was last revised on 2014. Blood specimen (specimen) 02/12/2019 8:46 AM CDT 02/12/2019 11:55 AM CDT us Sanjuanita Enamorado MD LAB BLOOD ORDERABLES Final Re sult Performing Organization Address [facility] de Phone Number TOMY SAHU ([place]) [address] [place] [address] * (ABNORMAL) POCT glucose (02/12/2019 7:48 AM CDT) Glucose, POC 188(H) 71 - 98 mg/dL TOMY SAHU ([place]) Blood specimen (specimen) 02/12/2019 7:48 AM CDT 02/12/2019 7:48 AM CDT Sanjuanita Enamorado MD LAB POCT ORDERABLES - DEVICE Final Result Performing Organization Address [facility] de Phone Number TOMY SAHU ([place]) [address] [place] [address] * aPTT (02/12/2019 7:07 AM CDT) aPTT 26.2 25.0 - 37.0 sec TOMY SAHU ([place]) Blood specimen (specimen) 02/12/2019 7:07 AM CDT 02/12/2019 9:16 AM CDT Narrative TOMY SAHU ([place]) - 02/12/2019 10:33 AM CDT May run from previous draw if able. us Sanjuanita Enamorado MD LAB BLOOD ORDERABLES Final Re sult Performing Organization Address [facility] de Phone Number TOMY SAHU ([place]) [address] [place] [address] * eGFR (02/12/2019 7:07 AM CDT) eGFR 159 mL/min/1.7 3 m2 TOMY SAHU ([place]) Comment: Interpretive Data Reference Interval Normal ?>/= 90 mL/min/1.73m2 Mildly decreased* ? 60 - 89 mL/min/1.73m2 Mildly to moderately decreased ?45 - 59 mL/min/1.73m2 Moderately to severely decreased ??30 - 44 mL/min/1.73m2 Severely decreased ?15 - 29 mL/min/1.73m2 Kidney Failure ?< 15 ??mL/min/1.73m2 *Relative to young adult level If -Montserratian multiply value by 1.16. Estimated glomerular filtration [...] was last reviewed 2015. Blood specimen (specimen) 02/12/2019 7:07 AM CDT 02/12/2019 7:19 AM CDT us Gio Sewell MD LAB BLOOD ORDERABLES Final Re sult [facility] ([place]) [address] [place] [address] * (ABNORMAL) Differential, auto (02/12/2019 7:07 AM CDT) Neutrophil abs 10.7(H) 1.7 - 6.5 K/cumm [facility] ([place]) Imm gran abs 0.1 0.0 - 0.1 K/cumm [facility] ([place]) Lymphocyte abs 1.1 0.8 - 3.3 K/cumm [facility] ([place]) Monocyte abs 0.8 0.2 - 0.8 K/cumm [facility] ([place]) Eosinophil abs 0.0 0.0 - 0.5 K/cumm [facility] ([place]) Basophil abs 0.0 0.0 - 0.1 K/cumm [facility] ([place]) Neutrophil pct 84.0 % [facility] ([place]) Comment: Interpretive Data Percent cell count reference ranges are not reported, since discordance with absolute values may lead to misinterpretation of CBC data. Current Interpretive Data was last revised on 2017. Imm gran pct 0.5 % [facility] ([place]) Comment: Interpretive Data Percent cell count reference ranges are not reported, since discordance with absolute values may lead to misinterpretation of CBC data. Current Interpretive Data was last revised on 2017. Lymphocyte pct 9.0 % [facility] ([place]) Comment: Interpretive Data Percent cell count reference ranges are not reported, since discordance with absolute values may lead to misinterpretation of CBC data. Current Interpretive Data was last revised on 2017. Monocyte pct 6.1 % [facility] ([place]) Comment: Interpretive Data [...] last revised on 2017. Blood specimen (specimen) 02/12/2019 7:07 AM CDT 02/12/2019 7:19 AM CDT us Gio Sewell MD LAB BLOOD ORDERABLES Final Re sult TOMY SAHU ([place]) [address] [place], [place] [id number] * (ABNORMAL) CBC with auto differential (02/12/2019 7:07 AM CDT) WBC 12.7(H) 3.8 - 9.9 K/cumm [facility] ([place]) Hgb 14.3 11.9 - 15.5 g/dL [facility] ([place]) Hct 41.3 35.6 - 45.5 % [facility] ([place]) Plt 346 150 - 400 K/cumm [facility] ([place]) MPV 9.4 9.1 - 12.3 fL [facility] ([place]) RBC 5.12 3.90 - 5.20 M/cumm [facility] ([place]) MCV 80.7(L) 81.3 - 96.4 fL [facility] ([place]) MCH 27.9 27.1 - 33.3 pg [facility] ([place]) MCHC 34.6 32.3 - 35.7 g/dL [facility] ([place]) RDW CV 15.2(H) 11.1 - 14.9 % [facility] ([place]) RDW SD 44.8 35.7 - 48.1 fL [facility] ([place]) NRBC abs 0.00 0.00 - 0.01 K/cumm [facility] ([place]) Blood specimen (specimen) 02/12/2019 7:07 AM CDT 02/12/2019 7:19 AM CDT Gio Sewell MD LAB BLOOD ORDERABLES Final Re sult Performing Organization Address City/[facility]/ZIP Co de Phone Number TOMY SAHU ([place]) [address] [place] [address] * (ABNORMAL) Phosphorus (02/12/2019 7:07 AM CDT) Phosphorus, pl 2.1(L) 2.3 - 4.5 mg/dL [facility] Blood specimen (specimen) 02/12/2019 7:07 AM CDT 02/12/2019 7:19 AM CDT Gio Sewell MD LAB BLOOD ORDERABLES Final Re sult [facility] ([place]) [address] [place] [address] * Magnesium (02/12/2019 7:07 AM CDT) Magnesium 1.9 1.6 - 2.4 mg/dL [facility] ([place]) Blood specimen (specimen) 02/12/2019 7:07 AM CDT 02/12/2019 7:19 AM CDT us Gio Sewell MD LAB BLOOD ORDERABLES Final Re sult [facility] ([place]) [address] [place] [address] * (ABNORMAL) Basic metabolic panel (02/12/2019 7:07 AM CDT) Sodium 135 135 - 145 mmol/L [facility] ([place]) Potassium, pl 3.4 3.3 - 4.9 mmol/L [facility] ([place]) Chloride 97 97 - 110 mmol/L [facility] ([place]) CO2 16(L) 22 - 32 mmol/L [facility] ([place]) Anion gap 22(H) 2 - 15 mmol/L [facility] ([place]) BUN 8 8 - 25 mg/dL [facility] ([place]) Creatinine 0.32(L) 0.60 - 1.10 mg/dL [facility] ([place]) Glucose 281(H) 70 - 199 mg/dL [facility] ([place]) Comment: Interpretive Data Fasting [...] 2017. Calcium 8.6 8.5 - 10.3 mg/dL [facility] ([place]) Blood specimen (specimen) 02/12/2019 7:07 AM CDT 02/12/2019 7:19 AM CDT us Gio Sewell MD LAB BLOOD ORDERABLES Final Re sult Performing Organization Address City/[facility]/ZIP Co de Phone Number [facility] ([place]) [address] [place] [address] * (ABNORMAL) POCT glucose (02/12/2019 6:28 AM CDT) Glucose, POC 273(H) 71 - 98 mg/dL [facility] ([place]) Blood specimen (specimen) 02/12/2019 6:28 AM CDT 02/12/2019 6:28 AM CDT us Sanjuanita Enamorado MD LAB POCT ORDERABLES - DEVICE Final Result Performing Organization Address [facility] Co de Phone Number [facility] ([place]) [address] [place] [address] * eGFR (02/12/2019 4:27 AM CDT) eGFR 159 mL/min/1.7 3 m2 [facility] ([place]) Comment: Interpretive Data Reference Interval Normal ?>/= 90 mL/min/1.73m2 Mildly decreased* ? 60 - 89 mL/min/1.73m2 Mildly to moderately decreased ?45 - 59 mL/min/1.73m2 Moderately to severely decreased ??30 - 44 mL/min/1.73m2 Severely decreased ?15 - 29 mL/min/1.73m2 Kidney Failure ?< 15 ??mL/min/1.73m2 *Relative to young adult level If -[place] multiply value by 1.16. Estimated glomerular filtration [...] was last reviewed 2015. Blood specimen (specimen) 02/12/2019 4:27 AM CDT 02/12/2019 4:36 AM CDT Gio Sewell MD LAB BLOOD ORDERABLES Final Re sult Performing Organization Address City/[facility]/ZIP Co de Phone Number [facility] ([place]) [address] [place] [address] * (ABNORMAL) Phosphorus (02/12/2019 4:27 AM CDT) Phosphorus, pl 2.2(L) 2.3 - 4.5 mg/dL TOMY SAHU ([place]) Blood specimen (specimen) 02/12/2019 4:27 AM CDT 02/12/2019 4:36 AM CDT Gio Sewell MD LAB BLOOD ORDERABLES Final Re sult Performing Organization Address [facility] Co de Phone Number TOMY SAHU ([place]) [address] [place] [address] * Magnesium (02/12/2019 4:27 AM CDT) Magnesium 1.9 1.6 - 2.4 mg/dL TOMY SAHU ([place]) Blood specimen (specimen) 02/12/2019 4:27 AM CDT 02/12/2019 4:36 AM CDT Gio Sewell MD LAB BLOOD ORDERABLES Final Re sult Performing Organization Address [facility] Co de Phone Number TOMY SAHU ([place]) [address] [place] [address] * (ABNORMAL) Basic metabolic panel (02/12/2019 4:27 AM CDT) Sodium 133(L) 135 - 145 mmol/L [facility] ([place]) Potassium, pl 3.8 3.3 - 4.9 mmol/L [facility] ([place]) Comment:Slightly Hemolyzed S pecimen. Hemolysis present. Results may be affected. Chloride 99 97 - 110 mmol/L [facility] ([place]) CO2 20(L) 22 - 32 mmol/L [facility] ([place]) Anion gap 14 2 - 15 mmol/L [facility] ([place]) BUN 6(L) 8 - 25 mg/dL [facility] ([place]) Creatinine 0.32(L) 0.60 - 1.10 mg/dL [facility] ([place]) Glucose 183 70 - 199 mg/dL [facility] ([place]) Comment: Interpretive Data Fasting [...] 2017. Calcium 8.7 8.5 - 10.3 mg/dL [facility] ([place]) Blood specimen (specimen) 02/12/2019 4:27 AM CDT 02/12/2019 4:36 AM CDT us Gio Sewell MD LAB BLOOD ORDERABLES Final Re sult [facility] ([place]) [address] [place] [address] * (ABNORMAL) POCT glucose (02/12/2019 3:06 AM CDT) Glucose, POC 189(H) 71 - 98 mg/dL [facility] ([place]) Blood specimen (specimen) 02/12/2019 3:06 AM CDT 02/12/2019 3:06 AM CDT Sanjuanita Enamorado MD LAB POCT ORDERABLES - DEVICE Final Result Performing Organization Address [facility] Co de Phone Number TOMY SAHU ([place]) [address] [place] [address] * (ABNORMAL) POCT glucose (02/12/2019 1:04 AM CDT) Glucose, POC 193(H) 71 - 98 mg/dL TOMY SAHU ([place]) Blood specimen (specimen) 02/12/2019 1:04 AM CDT 02/12/2019 1:04 AM CDT us Sanjuanita Enamorado MD LAB POCT ORDERABLES - DEVICE Final Result Performing Organization Address [facility] de Phone Number OTMY SHAU ([place]) [address] [place] [address] * (ABNORMAL) POCT glucose (02/11/2019 11:19 PM CDT) Glucose, POC 177(H) 71 - 98 mg/dL TOMY SAHU ([place]) Blood specimen (specimen) 02/11/2019 11:19 PM CDT 02/11/2019 11:19 PM CDT Sanjuanita Enamorado MD LAB POCT ORDERABLES - DEVICE Final Result Performing Organization Address [facility] de Phone Number TOMY SAHU ([place]) [address] [place] [address] * eGFR (02/11/2019 11:06 PM CDT) eGFR 159 mL/min/1.7 3 m2 TOMY SAHU ([place]) Comment: Interpretive Data Reference Interval Normal ?>/= 90 mL/min/1.73m2 Mildly decreased* ? 60 - 89 mL/min/1.73m2 Mildly to moderately decreased ?45 - 59 mL/min/1.73m2 Moderately to severely decreased ??30 - 44 mL/min/1.73m2 Severely decreased ?15 - 29 mL/min/1.73m2 Kidney Failure ?< 15 ??mL/min/1.73m2 *Relative to young adult level If -Montserratian multiply value by 1.16. Estimated glomerular filtration [...] was last reviewed 2015. Blood specimen (specimen) 02/11/2019 11:06 PM CDT 02/12/2019 12:14 AM CDT Gio Sewell MD LAB BLOOD ORDERABLES Final Re sult Performing Organization Address City/[facility]/ZIP Co de Phone Number TOMY SAHU ([place]) [address] [place] [address] * (ABNORMAL) Phosphorus (02/11/2019 11:06 PM CDT) Phosphorus, pl 1.8(L) 2.3 - 4.5 mg/dL TOMY [facility] ([place]) Blood specimen (specimen) 02/11/2019 11:06 PM CDT 02/12/2019 12:14 AM CDT Gio Sewell MD LAB BLOOD ORDERABLES Final Re sult TOMY SAHU ([place]) [address] [place] [address] * Magnesium (02/11/2019 11:06 PM CDT) Magnesium 1.8 1.6 - 2.4 mg/dL [facility] ([place]) Blood specimen (specimen) 02/11/2019 11:06 PM CDT 02/12/2019 12:14 AM CDT Gio Sewell MD LAB BLOOD ORDERABLES Final Re sult [facility] ([place]) [address] [place] [address] * (ABNORMAL) Basic metabolic panel (02/11/2019 11:06 PM CDT) Sodium 136 135 - 145 [...] - 1.10 mg/dL [facility] ([place]) Glucose 195 70 - 199 mg/dL [facility] ([place]) [...] mg/dL [facility] ([place]) Blood specimen (specimen) 02/11/2019 11:06 PM CDT 02/12/2019 12:14 AM CDT Gio Sewell MD LAB BLOOD ORDERABLES Final Re sult Performing Organization Address City/[facility]/ZIP Co de Phone Number TOMY SAHU ([place]) [address] [place] [address] * (ABNORMAL) POCT glucose (02/11/2019 9:06 PM CDT) Glucose, POC 163(H) 71 - 98 mg/dL TOMY SAHU ([place]) Blood specimen (specimen) 02/11/2019 9:06 PM CDT 02/11/2019 9:06 PM CDT us Sanjuanita Enamorado MD LAB POCT ORDERABLES - DEVICE Final Result Performing Organization Address [facility] Co de Phone Number TOMY SAHU ([place]) [address] [place] [address] * (ABNORMAL) POCT glucose (02/11/2019 6:44 PM CDT) Glucose, POC 161(H) 71 - 98 mg/dL TOMY SAHU ([place]) Blood specimen (specimen) 02/11/2019 6:44 PM CDT 02/11/2019 6:44 PM CDT us Sanjuanita Enamorado MD LAB POCT ORDERABLES - DEVICE Final Result Performing Organization Address [facility] Co de Phone Number TOMY SAHU ([place]) [address] [place] [address] * (ABNORMAL) POCT glucose (02/11/2019 5:28 PM CDT) Glucose, POC 153(H) 71 - 98 mg/dL TOMY SAHU ([place]) Blood specimen (specimen) 02/11/2019 5:28 PM CDT 02/11/2019 5:28 PM CDT us Sanjuanita Enamorado MD LAB POCT ORDERABLES - DEVICE Final Result Performing Organization Address City/[facility]/ZIP Co de Phone Number TOMY SAHU ([place]) [address] [place] [address] * (ABNORMAL) POCT glucose (02/11/2019 4:03 PM CDT) Glucose, POC 163(H) 71 - 98 mg/dL TOMY SAHU ([place]) Blood specimen (specimen) 02/11/2019 4:03 PM CDT 02/11/2019 4:03 PM CDT us Sanjuanita Enamorado MD LAB POCT ORDERABLES - DEVICE Final Result Performing Organization Address [facility]/ZIP Co de Phone Number TOMY SAHU ([place]) [address] [place] [address] * (ABNORMAL) POCT glucose (02/11/2019 3:02 PM CDT) Glucose, POC 155(H) 71 - 98 mg/dL TOMY SAHU ([place]) Blood specimen (specimen) 02/11/2019 3:02 PM CDT 02/11/2019 3:02 PM CDT us Sanjuanita Enamorado MD LAB POCT ORDERABLES - DEVICE Final Result Performing Organization Address [facility] Co de Phone Number TOMY SAHU ([place]) [address] [place] [address] * (ABNORMAL) POCT glucose (02/11/2019 2:13 PM CDT) Glucose, POC 128(H) 71 - 98 mg/dL TOMY SAHU ([place]) Blood specimen (specimen) 02/11/2019 2:13 PM CDT 02/11/2019 2:13 PM CDT Sanjuanita Enamorado MD LAB POCT ORDERABLES - DEVICE Final Result Performing Organization Address [facility] Co de Phone Number TOMY SAHU ([place]) [address] [place] [address] * (ABNORMAL) POCT glucose (02/11/2019 1:00 PM CDT) Glucose, POC 109(H) 71 - 98 mg/dL [facility] ([place]) Blood specimen (specimen) 02/11/2019 1:00 PM CDT 02/11/2019 1:00 PM CDT Sanjuanita Enamorado MD LAB POCT ORDERABLES - DEVICE Final Result Performing Organization Address [facility] Co de Phone Number TOMY SAHU ([place]) [address] [place] [address] * (ABNORMAL) POCT glucose (02/11/2019 11:34 AM CDT) Glucose, POC 140(H) 71 - 98 mg/dL TOMY SAHU ([place]) Blood specimen (specimen) 02/11/2019 11:34 AM CDT 02/11/2019 11:34 AM CDT Sanjuanita Enamorado MD LAB POCT ORDERABLES - DEVICE Final Result Performing Organization Address [facility] de Phone Number TOMY SAHU ([place]) [address] [place] [address] * Drugs of Abuse Screen, Urine without Confirmation (02/11/2019 10:09 AM CDT) Amphetamine, ur Not Detected CutOff [...] Data was last reviewed 2018. Urine Creatinine 67 mg/dL ASHLEY SAHU ([place]) Comment: Interpretive Data Urine Creatinine: < 10 mg/dL is extremely dilute = or > 10 but < 20 mg/dL is dilute = or > 20 mg/dL is normal Current Interpretive Data was last revised on 2017. Urine 02/11/2019 10:0 9 AM CDT 02/11/2019 10:14 AM CDT Narrative TOMY SAHU ([place]) - 02/11/2019 11:43 AM CDT Drug of Abuse screening is performed by immunoassay for medical purposes only. ??This is not to be used for Pain Management purposes. ??Drug of Abuse screening is performed by immunoassay for medical purposes only. ??This is not to be used for Pain Management purposes. us Sanjuanita Enamorado MD LAB URINE ORDERABLES Final Re sult Performing Organization Address [facility]/ZIP Co de Phone Number TOMY SAHU ([place]) [address] [place] [address] * (ABNORMAL) POCT glucose (02/11/2019 10:06 AM CDT) [facility] Signature Glucose, POC 186(H) 71 - 98 mg/dL TOMY SAHU ([place]) Blood specimen (specimen) 02/11/2019 10:06 AM CDT 02/11/2019 10:06 AM CDT Sanjuanita Enamorado MD LAB POCT ORDERABLES - DEVICE Final Result Performing Organization Address [facility] Co de Phone Number TOMY SAHU ([place]) [address] [place] [address] * (ABNORMAL) POCT glucose (02/11/2019 9:09 AM CDT) Glucose, POC 228(H) 71 - 98 mg/dL [facility] ([place]) Blood specimen (specimen) 02/11/2019 9:09 AM CDT 02/11/2019 9:09 AM CDT us Sanjuanita Enamorado MD LAB POCT ORDERABLES - DEVICE Final Result Performing Organization Address [facility] Co de Phone Number TOMY [facility] ([place]) [address] [place] [address] * (ABNORMAL) POCT glucose (02/11/2019 8:08 AM CDT) Glucose, POC 176(H) 71 - 98 mg/dL [facility] ([place]) Blood specimen (specimen) 02/11/2019 8:08 AM CDT 02/11/2019 8:08 AM CDT us Sanjuanita Enamorado MD LAB POCT ORDERABLES - DEVICE Final Result Performing Organization Address [facility] de Phone Number TOMY [facility] ([place]) [address] [place] [address] * eGFR (02/11/2019 7:54 AM CDT) eGFR 142 mL/min/1.7 3 m2 [facility] ([place]) Comment: Interpretive Data Reference Interval Normal ?>/= 90 mL/min/1.73m2 Mildly decreased* ? 60 - 89 mL/min/1.73m2 Mildly to moderately decreased ?45 - 59 mL/min/1.73m2 Moderately to severely decreased ??30 - 44 mL/min/1.73m2 Severely decreased ?15 - 29 mL/min/1.73m2 Kidney Failure ?< 15 ??mL/min/1.73m2 *Relative to young adult level If -Montserratian multiply value by 1.16. Estimated glomerular filtration [...] was last reviewed 2015. Blood specimen (specimen) 02/11/2019 7:54 AM CDT 02/11/2019 8:14 AM CDT us Gio Sewell MD LAB BLOOD ORDERABLES Final Re sult [facility] ([place]) [address] [place] [address] * (ABNORMAL) Basic metabolic panel (02/11/2019 7:54 AM CDT) Sodium 136 135 - 145 [...] - 1.10 mg/dL [facility] ([place]) Glucose 189 70 - 199 mg/dL [facility] ([place]) [...] mg/dL TOMY SAHU ([place]) Blood specimen (specimen) 02/11/2019 7:54 AM CDT 02/11/2019 8:14 AM CDT Gio Sewell MD LAB BLOOD ORDERABLES Final Re sult Performing Organization Address City/[facility]/ZIP Co de Phone Number TOMY SAHU ([place]) [address] [place] [address] * (ABNORMAL) Phosphorus (02/11/2019 7:54 AM CDT) Phosphorus, pl 2.0(L) 2.3 - 4.5 mg/dL TOMY SAHU ([place]) Blood specimen (specimen) 02/11/2019 7:54 AM CDT 02/11/2019 8:14 AM CDT Gio Sewell MD LAB BLOOD ORDERABLES Final Re sult Performing Organization Address [facility] Co de Phone Number TOMY SAHU ([place]) [address] [place] [address] * Magnesium (02/11/2019 7:54 AM CDT) Magnesium 2.0 1.6 - 2.4 mg/dL TOMY SAHU ([place]) Blood specimen (specimen) 02/11/2019 7:54 AM CDT 02/11/2019 8:14 AM CDT Gio Sewell MD LAB BLOOD ORDERABLES Final Re sult Performing Organization Address [facility] Co de Phone Number TOMY SAHU ([place]) [address] [place] [address] * (ABNORMAL) POCT glucose (02/11/2019 6:32 AM CDT) Glucose, POC 129(H) 71 - 98 mg/dL [facility] ([place]) Blood specimen (specimen) 02/11/2019 6:32 AM CDT 02/11/2019 6:32 AM CDT us Sanjuanita Enamorado MD LAB POCT ORDERABLES - DEVICE Final Result Performing Organization Address [facility] Co de Phone Number TOMY [facility] ([place]) [address] [place] [address] * (ABNORMAL) POCT glucose (02/11/2019 4:32 AM CDT) Pathologist [facility] Glucose, POC 112(H) 71 - 98 mg/dL [facility] ([place]) Blood specimen (specimen) 02/11/2019 4:32 AM CDT 02/11/2019 4:32 AM CDT us Sanjuanita Enamorado MD LAB POCT ORDERABLES - DEVICE Final Result Performing Organization Address [facility] de Phone Number TOMY [facility] ([place]) [address] [place] [address] * eGFR (02/11/2019 4:14 AM CDT) Pathologist [facility] eGFR 138 mL/min/1.7 3 m2 [facility] ([place]) Comment: Interpretive Data Reference Interval Normal ?>/= 90 mL/min/1.73m2 Mildly decreased* ? 60 - 89 mL/min/1.73m2 Mildly to moderately decreased ?45 - 59 mL/min/1.73m2 Moderately to severely decreased ??30 - 44 mL/min/1.73m2 Severely decreased ?15 - 29 mL/min/1.73m2 Kidney Failure ?< 15 ??mL/min/1.73m2 *Relative to young adult level If -Montserratian multiply value by 1.16. Estimated glomerular filtration [...] was last reviewed 2015. Blood specimen (specimen) 02/11/2019 4:14 AM CDT 02/11/2019 4:18 AM CDT us Gio Sewell MD LAB BLOOD ORDERABLES Final Re sult [facility] ([place]) [address] [place] [address] * (ABNORMAL) Differential, auto (02/11/2019 4:14 AM CDT) Neutrophil abs 8.4(H) 1.7 - 6.5 K/cumm [facility] ([place]) Imm gran abs 0.0 0.0 - 0.1 K/cumm [facility] ([place]) Lymphocyte abs 1.7 0.8 - 3.3 K/cumm [facility] ([place]) Monocyte abs 0.9(H) 0.2 - 0.8 K/cumm [facility] ([place]) Eosinophil abs 0.0 0.0 - 0.5 K/cumm [facility] ([place]) Basophil abs 0.0 0.0 - 0.1 K/cumm [facility] ([place]) Neutrophil pct 76.3 % [facility] ([place]) Comment: Interpretive [...] was last revised on 2017. Lymphocyte pct 15.3 % [facility] ([place]) Comment: Interpretive Data Percent cell count reference ranges are not reported, since discordance with absolute values may lead to misinterpretation of CBC data. Current Interpretive Data was last revised on 2017. Monocyte pct 7.9 % [facility] ([place]) Comment: Interpretive Data Percent cell count reference ranges are not reported, since discordance with absolute values may lead to misinterpretation of CBC data. Current Interpretive Data was last revised on 2017. Eosinophil pct 0.1 % [facility] ([place]) Comment: Interpretive Data Percent cell count reference [...] last revised on 2017. Blood specimen (specimen) 02/11/2019 4:14 AM CDT 02/11/2019 4:18 AM CDT us Pato Haney MD LAB BLOOD ORDERABLES Final R esult [facility] ([place]) [address] [place] [id number] * (ABNORMAL) Basic metabolic panel (02/11/2019 4:14 AM CDT) Sodium 138 135 - 145 mmol/L [facility] ([place]) Potassium, pl 3.6 3.3 - 4.9 mmol/L [facility] ([place]) Chloride 101 97 - 110 mmol/L [facility] ([place]) CO2 23 22 - 32 mmol/L [facility] ([place]) Anion gap 14 2 - 15 mmol/L [facility] ([place]) BUN 9 8 - 25 mg/dL [facility] ([place]) Creatinine 0.49(L) 0.60 - 1.10 mg/dL [facility] ([place]) Glucose 130 70 - 199 mg/dL [facility] ([place]) Comment: Interpretive Data Fasting [...] 2017. Calcium 9.1 8.5 - 10.3 mg/dL [facility] ([place]) Blood specimen (specimen) 02/11/2019 4:14 AM CDT 02/11/2019 4:18 AM CDT Gio Sewell MD LAB BLOOD ORDERABLES Final Re sult Performing Organization Address [facility] Co de Phone Number TOMY SAHU ([place]) [address] [place] [address] * Phosphorus (02/11/2019 4:14 AM CDT) Phosphorus, pl 3.5 2.3 - 4.5 mg/dL [facility] ([place]) Blood specimen (specimen) 02/11/2019 4:14 AM CDT 02/11/2019 4:18 AM CDT Gio Sewell MD LAB BLOOD ORDERABLES Final Re sult Performing Organization Address [facility] Co de Phone Number TOMY SAHU ([place]) [address] [place] [address] * Magnesium (02/11/2019 4:14 AM CDT) Magnesium 2.4 1.6 - 2.4 mg/dL TOMY [facility] ([place]) Blood specimen (specimen) 02/11/2019 4:14 AM CDT 02/11/2019 4:18 AM CDT Gio Sewell MD LAB BLOOD ORDERABLES Final Re sult [facility] ([place]) [address] [place] [address] * (ABNORMAL) CBC with auto differential (02/11/2019 4:14 AM CDT) WBC 11.1(H) 3.8 - 9.9 K/cumm [facility] ([place]) Hgb 13.2 11.9 - 15.5 g/dL [facility] ([place]) Hct 39.3 35.6 - 45.5 % [facility] ([place]) Plt 325 150 - 400 K/cumm [facility] ([place]) MPV 9.0(L) 9.1 - 12.3 fL [facility] ([place]) RBC 4.80 3.90 - 5.20 M/cumm [facility] ([place]) MCV 81.9 81.3 - 96.4 fL [facility] ([place]) MCH 27.5 27.1 - 33.3 pg [facility] ([place]) MCHC 33.6 32.3 - 35.7 g/dL [facility] ([place]) RDW CV 15.4(H) 11.1 - 14.9 % [facility] ([place]) RDW SD 46.5 35.7 - 48.1 fL [facility] ([place]) NRBC abs 0.00 0.00 - 0.01 K/cumm [facility] ([place]) Blood specimen (specimen) 02/11/2019 4:14 AM CDT 02/11/2019 4:18 AM CDT Gio Sewell MD LAB BLOOD ORDERABLES Final Re sult TOMY SAHU ([place]) [address] [place] [address] * (ABNORMAL) POCT glucose (02/11/2019 2:36 AM CDT) Glucose, POC 124(H) 71 - 98 mg/dL [facility] ([place]) Blood specimen (specimen) 02/11/2019 2:36 AM CDT 02/11/2019 2:36 AM CDT us Sanjuanita Enamorado MD LAB POCT ORDERABLES - DEVICE Final Result Performing Organization Address City/[facility]/ZIP Co de Phone Number TOMY SAHU ([place]) [address] [place] [address] * (ABNORMAL) POCT glucose (02/11/2019 1:25 AM CDT) Glucose, POC 178(H) 71 - 98 mg/dL TOMY SAHU ([place]) Blood specimen (specimen) 02/11/2019 1:25 AM CDT 02/11/2019 1:25 AM CDT us Sanjuanita Enamorado MD LAB POCT ORDERABLES - DEVICE Final Result Performing Organization Address [facility] Co de Phone Number TOMY SAHU ([place]) [address] [place] [address] * eGFR (02/11/2019 12:26 AM CDT) eGFR 152 mL/min/1.7 3 m2 TOYM SAHU ([place]) Comment: Interpretive Data Reference Interval Normal ?>/= 90 mL/min/1.73m2 Mildly decreased* ? 60 - 89 mL/min/1.73m2 Mildly to moderately decreased ?45 - 59 mL/min/1.73m2 Moderately to severely decreased ??30 - 44 mL/min/1.73m2 Severely decreased ?15 - 29 mL/min/1.73m2 Kidney Failure ?< 15 ??mL/min/1.73m2 *Relative to young adult level If -Montserratian multiply value by 1.16. Estimated glomerular filtration [...] was last reviewed 2015. Blood specimen (specimen) 02/11/2019 12:26 AM CDT 02/11/2019 12:29 AM CDT us Rayo Carlisle MD LAB BLOOD ORDERABLES Final Resul t Performing Organization Address City/[facility]/ZIP Co de Phone Number TOMY SAHU ([place]) [address] [place] [address] * Phosphorus (02/11/2019 12:26 AM CDT) Phosphorus, pl 3.2 2.3 - 4.5 mg/dL [facility] ([place]) Blood specimen (specimen) 02/11/2019 12:26 AM CDT 02/11/2019 12:29 AM CDT us Gio Sewell MD LAB BLOOD ORDERABLES Final Re sult Performing Organization Address [facility] Co de Phone Number TOMY SAHU ([place]) [address] [place] [address] * Magnesium (02/11/2019 12:26 AM CDT) Magnesium 2.4 1.6 - 2.4 mg/dL [facility] Blood specimen (specimen) 02/11/2019 12:26 AM CDT 02/11/2019 12:29 AM CDT us Gio Sewell MD LAB BLOOD ORDERABLES Final Re sult Performing Organization Address City/[facility]/ZIP Co de Phone Number TOMY SAHU ([place]) [address] [place] [address] * Lactate (02/11/2019 12:26 AM CDT) Lactate 1.1 0.7 - 2.0 mmol/L [facility] ([place]) Blood specimen (specimen) 02/11/2019 12:26 AM CDT 02/11/2019 12:29 AM CDT us Gio Sewell MD LAB BLOOD ORDERABLES Final Re sult TOMY [facility] ([place]) [address] [place] [address] * (ABNORMAL) Basic metabolic panel (02/11/2019 12:26 AM CDT) Sodium 133(L) 135 - 145 mmol/L [facility] ([place]) Potassium, pl 4.1 3.3 - 4.9 mmol/L [facility] ([place]) Comment:Hemolysis present. R esults may be affected. Chloride 96(L) 97 - 110 mmol/L [facility] CO2 20(L) 22 - 32 mmol/L [facility] ([place]) Anion gap 18(H) 2 - 15 mmol/L [facility] ([place]) BUN 11 8 - 25 mg/dL [facility] ([place]) Creatinine 0.37(L) 0.60 - 1.10 mg/dL [facility] Glucose 219(H) 70 - 199 mg/dL [facility] ([place]) Comment: Interpretive Data Fasting glucose [...] mg/dL [facility] ([place]) Blood specimen (specimen) 02/11/2019 12:26 AM CDT 02/11/2019 12:29 AM CDT us Gio Sewell MD LAB BLOOD ORDERABLES Final Re sult Performing Organization Address [facility] Co de Phone Number TOMY SAHU ([place]) [address] [place] [address] * (ABNORMAL) POCT glucose (02/10/2019 11:39 PM CDT) Glucose, POC 182(H) 71 - 98 mg/dL TOMY SAHU ([place]) Blood specimen (specimen) 02/10/2019 11:39 PM CDT 02/10/2019 11:39 PM CDT us Sanjuanita Enamorado MD LAB POCT ORDERABLES - DEVICE Final Result Performing Organization Address [facility] Co de Phone Number TOMY SAHU ([place]) [address] [place] [phone] * Gastric pH (02/10/2019 10:15 PM CDT) pH, Gastric 3.0 TOMY CARABALLO ([place]) 2nd Tech Check [id number] KENZIE R [facility] ([place]) Gastric Color Brown TOMY SAHU ([place]) Emesis 02/10/2019 10:1 5 PM CDT 02/10/2019 10:29 PM CDT us Gio Sewell MD LAB BODY FLUIDS AND STOOLS OR DERABLES Final Result Performing Organization Address [facility] [place]/[facility] Co de Phone Number TOMY SAHU ([place]) [address] [place] [address] * Occult blood gastric (02/10/2019 10:15 PM CDT) Occult blood, gastric Positive Negative TOMY SAHU ([place]) Emesis 02/10/2019 10:1 5 PM CDT 02/10/2019 10:29 PM CDT Narrative ASHLEYTOSHA LUIS ALBERTO ([place]) - 02/10/2019 10:59 PM CDT Fluid Detail:->Gastric us Gio Sewell MD LAB BODY FLUIDS AND STOOLS OR DERABLES Final Result Performing Organization Address City/[facility]/ZIP Co de Phone Number TOMY SAHU ([place]) [address] [place] [address] * (ABNORMAL) POCT glucose (02/10/2019 10:13 PM CDT) Glucose, POC 114(H) 71 - 98 mg/dL TOMY SAHU ([place]) Blood specimen (specimen) 02/10/2019 10:13 PM CDT 02/10/2019 10:13 PM CDT us Sanjuanita Enamorado MD LAB POCT ORDERABLES - DEVICE Final Result Performing Organization Address [facility] Co de Phone Number TOMY SAHU ([place]) [address] [place] [address] * eGFR (02/10/2019 8:01 PM CDT) eGFR 136 mL/min/1.7 3 m2 TOMY SAHU ([place]) Comment: Interpretive Data Reference Interval Normal ?>/= 90 mL/min/1.73m2 Mildly decreased* ? 60 - 89 mL/min/1.73m2 Mildly to moderately decreased ?45 - 59 mL/min/1.73m2 Moderately to severely decreased ??30 - 44 mL/min/1.73m2 Severely decreased ?15 - 29 mL/min/1.73m2 Kidney Failure ?< 15 ??mL/min/1.73m2 *Relative to young adult level If -[place] multiply value by 1.16. Estimated glomerular filtration [...] was last reviewed 2015. Blood specimen (specimen) 02/10/2019 8:01 PM CDT 02/10/2019 8:04 PM CDT us Rayo Carlisle MD LAB BLOOD ORDERABLES Final Resul t Performing Organization Address City/[facility]/ZIP Co de Phone Number TOMY SAHU ([place]) [address] [place] [address] * (ABNORMAL) Lactate (02/10/2019 8:01 PM CDT) Lactate 2.2(H) 0.7 - 2.0 mmol/L [facility] ([place]) Blood specimen (specimen) 02/10/2019 8:01 PM CDT 02/10/2019 8:04 PM CDT us Gio Sewell MD LAB BLOOD ORDERABLES Final Re sult Performing Organization Address [facility] Co de Phone Number TOMY SAHU ([place]) [address] [place] [address] * (ABNORMAL) Basic metabolic panel (02/10/2019 8:01 PM CDT) Sodium 137 135 - 145 [...] - 1.10 mg/dL [facility] ([place]) Glucose 148 70 - 199 mg/dL [facility] ([place]) [...] 2017. Calcium 9.4 8.5 - 10.3 mg/dL [facility] ([place]) Blood specimen (specimen) 02/10/2019 8:01 PM CDT 02/10/2019 8:04 PM CDT Rayo Carlisle MD LAB BLOOD ORDERABLES Final Resul t Performing Organization Address [facility] de Phone Number TOMY SAHU ([place]) [address] [place] [phone] * TSH reflex to free T4 (02/10/2019 7:58 PM CDT) TSH 2.42 0.30 - 4.20 mcIUnit/mL TOMY SAHU ([place]) Blood specimen (specimen) 02/10/2019 7:58 PM CDT 02/10/2019 9:02 PM CDT Gio Sewell MD LAB BLOOD ORDERABLES Final Re sult Performing Organization Address [facility] de Phone Number TOMY SAHU ([place]) [address] [place] [phone] * Magnesium (02/10/2019 7:58 PM CDT) Magnesium 1.6 1.6 - 2.4 mg/dL TOMY SAHU ([place]) Blood specimen (specimen) 02/10/2019 7:58 PM CDT 02/10/2019 9:02 PM CDT Gio Sewell MD LAB BLOOD ORDERABLES Final Re sult TOMY SAHU ([place]) [address] [place] [address] * Phosphorus (02/10/2019 7:58 PM CDT) Phosphorus, pl 2.6 2.3 - 4.5 mg/dL TOMY SAHU ([place]) Blood specimen (specimen) 02/10/2019 7:58 PM CDT 02/10/2019 9:02 PM CDT us Gio Sewell MD LAB BLOOD ORDERABLES Final Re sult Performing Organization Address [facility] Co de Phone Number TOMY SAHU ([place]) [address] [place] [address] * (ABNORMAL) POCT glucose (02/10/2019 6:28 PM CDT) Glucose, POC 205(H) 71 - 98 mg/dL TOMY SAHU ([place]) Blood specimen (specimen) 02/10/2019 6:28 PM CDT 02/10/2019 6:28 PM CDT us Sanjuanita Enamorado MD LAB POCT ORDERABLES - DEVICE Final Result Performing Organization Address [facility] Co de Phone Number TOMY SAHU ([place]) [address] [place] [address] * (ABNORMAL) POCT glucose (02/10/2019 5:42 PM CDT) Glucose, POC 205(H) 71 - 98 mg/dL TOMY SAHU ([place]) Blood specimen (specimen) 02/10/2019 5:42 PM CDT 02/10/2019 5:42 PM CDT us Sanjuanita Enamorado MD LAB POCT ORDERABLES - DEVICE Final Result Performing Organization Address [facility]/ZIP Co de Phone Number TOMY SAHU ([place]) [address] [place] [address] * (ABNORMAL) POCT glucose (02/10/2019 4:35 PM CDT) Glucose, POC 238(H) 71 - 98 mg/dL TOMY SAHU ([place]) Blood specimen (specimen) 02/10/2019 4:35 PM CDT 02/10/2019 4:35 PM CDT us Sanjuanita Enamorado MD LAB POCT ORDERABLES - DEVICE Final Result Performing Organization Address City/[facility]/ZIP Co de Phone Number TOMY SAHU ([place]) [address] [place] [address] * (ABNORMAL) Sepsis Lactate w/ Reflex (02/10/2019 4:18 PM CDT) Sepsis Lactate 3.6(H) 0.7 - 2.0 mmol/L TOMY SAHU ([place]) Blood specimen (specimen) 02/10/2019 4:18 PM CDT 02/10/2019 4:21 PM CDT us Pato Haney MD LAB BLOOD ORDERABLES Final R esult Performing Organization Address [facility]/ZIP Co de Phone Number TOMY SAHU ([place]) [address] [place] [address] * (ABNORMAL) POCT glucose (02/10/2019 3:35 PM CDT) Glucose, POC 211(H) 71 - 98 mg/dL TOMY [facility] ([place]) Blood specimen (specimen) 02/10/2019 3:35 PM CDT 02/10/2019 3:35 PM CDT us Pato Haney MD LAB POCT ORDERABLES - DEVICE Final Result Performing Organization Address City/[facility] Co de Phone Number TOMY SAHU ([place]) [address] [place] [address] * (ABNORMAL) POCT glucose (02/10/2019 2:20 PM CDT) Glucose, POC 241(H) 71 - 98 mg/dL TOMY SAHU ([place]) Blood specimen (specimen) 02/10/2019 2:20 PM CDT 02/10/2019 2:20 PM CDT Pato Haney MD LAB POCT ORDERABLES - DEVICE Final Result TOMY LUIS ALBERTO ([place]) [address] [place] [address] * eGFR (02/10/2019 2:13 PM CDT) eGFR 136 mL/min/1.7 3 m2 TOMY SAHU ([place]) Comment: Interpretive Data Reference Interval Normal ?>/= 90 mL/min/1.73m2 Mildly decreased* ? 60 - 89 mL/min/1.73m2 Mildly to moderately decreased ?45 - 59 mL/min/1.73m2 Moderately to severely decreased ??30 - 44 mL/min/1.73m2 Severely decreased ?15 - 29 mL/min/1.73m2 Kidney Failure ?< 15 ??mL/min/1.73m2 *Relative to young adult level If -Montserratian multiply value by 1.16. Estimated glomerular filtration [...] was last reviewed 2015. Blood specimen (specimen) 02/10/2019 2:13 PM CDT 02/10/2019 2:15 PM CDT Pato Haney MD LAB BLOOD ORDERABLES Final R esult Performing Organization Address [facility] Co de Phone Number TOMY SAHU ([place]) [address] [place] [address] * (ABNORMAL) Blood gas, venous (02/10/2019 2:13 PM CDT) pH, Venous 7.38 7.32 - 7.43 [facility] ([place]) PCO2, Venous 35(L) 40 - 50 mmHg [facility] ([place]) PO2, Venous 75 mmHg [facility] ([place]) Comment: Interpretive Data No Reference Range Established Current Interpretive Data was last revised on 2017. HCO3 Venous, Calculated 20 20 - 30 mmol/L [facility] ([place]) BE, venous -4 mmol/L [facility] ([place]) Comment: Interpretive Data No Reference Range Established Current Interpretive Data was last revised on 2017. Blood specimen (specimen) 02/10/2019 2:13 PM CDT 02/10/2019 2:15 PM CDT Pato Haney MD LAB BLOOD ORDERABLES Final R esult Performing Organization Address [facility] Co de Phone Number TOMY SAHU ([place]) [address] [place] [address] * (ABNORMAL) Basic metabolic panel (02/10/2019 2:13 PM CDT) Sodium 140 135 - 145 mmol/L [facility] Potassium, pl 4.0 3.3 - 4.9 mmol/L [facility] ([place]) Chloride 103 97 - 110 mmol/L [facility] CO2 21(L) 22 - 32 mmol/L [facility] ([place]) Anion gap 17(H) 2 - 15 mmol/L [facility] ([place]) BUN 14 8 - 25 mg/dL [facility] Creatinine 0.52(L) 0.60 - 1.10 mg/dL [facility] ([place]) Glucose 269(H) 70 - 199 mg/dL [facility] ([place]) [...] 2017. Calcium 9.0 8.5 - 10.3 mg/dL TOMY [facility] ([place]) Blood specimen (specimen) 02/10/2019 2:13 PM CDT 02/10/2019 2:15 PM CDT Pato Haney MD LAB BLOOD ORDERABLES Final R esult Performing Organization Address [facility]/ZIP Co de Phone Number TOMY [facility] ([place]) [address] [place] [address] * (ABNORMAL) Sepsis Lactate w/ Reflex (02/10/2019 2:13 PM CDT) Sepsis Lactate 2.4(H) 0.7 - 2.0 mmol/L TOMY [facility] ([place]) Blood specimen (specimen) 02/10/2019 2:13 PM CDT 02/10/2019 2:15 PM CDT Pato Haney MD LAB BLOOD ORDERABLES Final R esult TOMY SAHU ([place]) [address] [place] [address] * (ABNORMAL) POCT glucose (02/10/2019 1:30 PM CDT) Glucose, POC 269(H) 71 - 98 mg/dL TOMY [facility] ([place]) Blood specimen (specimen) 02/10/2019 1:30 PM CDT 02/10/2019 1:30 PM CDT Pato Haney MD LAB POCT ORDERABLES - DEVICE Final Result Performing Organization Address [facility]/ZIP Co de Phone Number TOMY SAHU ([place]) [address] [place] [phone] * POCT hCG, urine (02/10/2019 12:25 PM CDT) HCG, ur, POC Negative Lot Number [id number] QC Backgroud Clear Acceptable QC Control Line Acceptable Urine 02/10/2019 12:2 5 PM CDT Pato Haney MD POINT OF CARE TEST ORDERABLE S Final Result * Urinalysis, microscopic only (02/10/2019 12:19 PM CDT) WBC, ur 0-5 0 - 5 /HPF [facility] ([place]) RBC, ur 0-5 0 - 2 /HPF [facility] ([place]) Epithelial cells, squamous, ur 1-5 0 - 5 /HPF [facility] ([place]) Bacteria, ur Negative [facility] ([place]) Hyaline casts, ur 1-5 0 - 10 /LPF [facility] ([place]) Urine 02/10/2019 12:1 9 PM CDT 02/10/2019 12:22 PM CDT Pato Haney MD LAB URINE ORDERABLES Final R esult Performing Organization Address City/[facility]/ZIP Co de Phone Number TOMY SAHU ([place]) [address] [place] [address] * (ABNORMAL) Urinalysis reflex to microscopic and culture Urine (02/10/2019 12:19 PM CDT) Color, ur Yellow Yellow [facility] ([place]) Clarity, ur Clear Clear [facility] ([place]) Specific gravity, ur 1.024 1.010 - 1.025 [facility] ([place]) pH, urine 7.0 [facility] ([place]) Protein, ur ql Negative Negative [facility] ([place]) Glucose, ur ql 3+(A) Negative [facility] ([place]) Ketones, ur 3+(A) Negative [facility] ([place]) Bilirubin, ur Negative Negative [facility] ([place]) Blood, ur Trace(A) Negative [facility] ([place]) Urobilinogen, ur 0.2 mg/dL [facility] ([place]) Nitrite, ur Negative Negative [facility] ([place]) Leukocyte esterase, ur Negative Negative [facility] ([place]) Urine 02/10/2019 12:1 9 PM CDT 02/10/2019 12:22 PM CDT Narrative [facility] ([place]) - 02/10/2019 12:30 PM CDT ?? Urine pH is affected by diet, medications, systemic acid-base disturbances, and renal tubular function. ??pH may affect urinary stone formation. ??For example, urine pH below 6.0 may help reduce the tendency for calcium phosphate stones and pH greater than 6.0 may reduce the tendency for uric acid stone formation. Source: Abdalla Linkua. Last revised 05-13-2017 us Pato Haney MD LAB MICROBIOLOGY - GENERAL O RDERABLES Final Result [facility] ([place]) [address] [place] [address] * (ABNORMAL) POCT glucose (02/10/2019 12:17 PM CDT) Glucose, POC 384(C) 71 - 98 mg/dL TOMY [facility] ([place]) Blood specimen (specimen) 02/10/2019 12:17 PM CDT 02/10/2019 12:17 PM CDT Pato Haney MD LAB POCT ORDERABLES - DEVICE Final Result Performing Organization Address City/[facility]/ZIP Co de Phone Number TOMY SAHU ([place]) [address] [place] [address] * eGFR (02/10/2019 11:41 AM CDT) eGFR 131 mL/min/1.7 3 m2 [facility] ([place]) Comment: Interpretive Data Reference Interval Normal ?>/= 90 mL/min/1.73m2 Mildly decreased* ? 60 - 89 mL/min/1.73m2 Mildly to moderately decreased ?45 - 59 mL/min/1.73m2 Moderately to severely decreased ??30 - 44 mL/min/1.73m2 Severely decreased ?15 - 29 mL/min/1.73m2 Kidney Failure ?< 15 ??mL/min/1.73m2 *Relative to young adult level If -Montserratian multiply value by 1.16. Estimated glomerular filtration [...] was last reviewed 2015. Blood specimen (specimen) 02/10/2019 11:41 AM CDT 02/10/2019 11:44 AM CDT us Pato Haney MD LAB BLOOD ORDERABLES Final R esult [facility] ([place]) [address] [place] [address] * Differential, auto (02/10/2019 11:41 AM CDT) Neutrophil abs 6.1 1.7 - [...] 0.1 K/cumm [facility] ([place]) Neutrophil pct 76.4 % [facility] ([place]) Comment: Interpretive [...] was last revised on 2017. Lymphocyte pct 16.6 % [facility] ([place]) Comment: Interpretive Data Percent cell count reference ranges are not reported, since discordance with absolute values may lead to misinterpretation of CBC data. Current Interpretive Data was last revised on 2017. Monocyte pct 5.8 % [facility] ([place]) Comment: Interpretive Data [...] last revised on 2017. Blood specimen (specimen) 02/10/2019 11:41 AM CDT 02/10/2019 11:44 AM CDT us Pato Haney MD LAB BLOOD ORDERABLES Final R esult TOMY [facility] ([place]) [address] [place] [address] * (ABNORMAL) Sepsis Lactate w/ Reflex (02/10/2019 11:41 AM CDT) Sepsis Lactate 2.9(H) 0.7 - 2.0 mmol/L TOMY [facility] ([place]) Blood specimen (specimen) 02/10/2019 11:41 AM CDT 02/10/2019 11:44 AM CDT Pato Haney MD LAB BLOOD ORDERABLES Final R esult Performing Organization Address City/[facility]/ZIP Co de Phone Number TOMY [facility] ([place]) [address] [place] [address] * Lipase (02/10/2019 11:41 AM CDT) Pathologist [facility] Lipase 12 10 - 99 Units/L TOMY [facility] ([place]) Blood specimen (specimen) 02/10/2019 11:41 AM CDT 02/10/2019 11:44 AM CDT Pato Haney MD LAB BLOOD ORDERABLES Final R [facility] Performing Organization Address [facility] de Phone Number TOMY SAHU ([place]) [address] [place] [address] * (ABNORMAL) Blood gas, venous (02/10/2019 11:41 AM CDT) Pathologist [facility] pH, Venous 7.36 7.32 - 7.43 [facility] ([place]) PCO2, Venous 38(L) 40 - 50 mmHg [facility] ([place]) PO2, Venous 74 mmHg [facility] ([place]) Comment: Interpretive Data No Reference Range Established Current Interpretive Data was last revised on 2017. HCO3 Venous, Calculated 21 20 - 30 mmol/L [facility] ([place]) BE, venous -4 mmol/L [facility] ([place]) Comment: Interpretive Data No Reference Range Established Current Interpretive Data was last revised on 2017. Blood specimen (specimen) 02/10/2019 11:41 AM CDT 02/10/2019 11:44 AM CDT us Pato Haney MD LAB BLOOD ORDERABLES Final R esult [facility] ([place]) [address] [place] [address] * (ABNORMAL) Comprehensive metabolic panel (02/10/2019 11:41 AM CDT) Sodium 139 135 - 145 [...] - 1.10 mg/dL [facility] ([place]) Glucose 348(H) 70 - 199 mg/dL [facility] ([place]) [...] - 130 Units/L [facility] ([place]) ALT 12 7 - 45 Units/L [facility] ([place]) AST 21 10 - 45 Units/L [facility] ([place]) Comment: Hemolysis present. ??Results may be affected. Slightly Hemolyzed Specimen Blood specimen (specimen) 02/10/2019 11:41 AM CDT 02/10/2019 11:44 AM CDT Pato Haney MD LAB BLOOD ORDERABLES Final R esult Performing Organization Address City/[facility]/ZIP Co de Phone Number [facility] ([place]) [address] [place], [place] [id number] * (ABNORMAL) CBC with auto differential (02/10/2019 11:41 AM CDT) WBC 8.0 3.8 - 9.9 K/cumm [facility] ([place]) Hgb 14.2 11.9 - 15.5 g/dL [facility] Hct 42.2 35.6 - 45.5 % [facility] Plt 295 150 - 400 K/cumm [facility] ([place]) MPV 10.7 9.1 - 12.3 fL [facility] ([place]) RBC 5.16 3.90 - 5.20 M/cumm [facility] ([place]) MCV 81.8 81.3 - 96.4 fL [facility] ([place]) MCH 27.5 27.1 - 33.3 pg [facility] ([place]) MCHC 33.6 32.3 - 35.7 g/dL [facility] RDW CV 15.3(H) 11.1 - 14.9 % [facility] ([place]) RDW SD 45.9 35.7 - 48.1 fL [facility] NRBC abs 0.00 0.00 - 0.01 K/cumm [facility] ([place] Blood specimen (specimen) 02/10/2019 11:41 AM CDT 02/10/2019 11:44 AM CDT Pato Haney MD LAB BLOOD ORDERABLES Final R esult Performing Organization Address City/[facility]/ZIP Co de Phone Number [facility] ([place]) [address] [place] [address] documented in this encounter Visit Diagnoses Diagnosis Diabetic ketoacidosis without coma associated with type 1 diabetes mellitus (CMS/HCC) (HCC) Non-intractable vomiting with nausea, unspecified vomiting type Lactic acidosis Acidosis Depression Depressive disorder, not elsewhere classified Type 1 diabetes mellitus with hyperglycemia (HCC) Hematemesis Diabetic ketoacidosis without coma associated with type 1 diabetes mellitus (CMS/HCC) (HCC) Non-intractable vomiting documented in this encounter Admitting Diagnoses Diagnosis Non-intractable vomiting documented in this encounter Administered Medications Inactive Administered Medications - up to 3 most recent administrations Medication Order MAR Action Action Date Dose Rate Site cefTRIAXone (ROCEPHIN) 1,000 mg/10 mL in sterile water (premix) 1,000 mg 1,000 mg, intravenous, at 120 mL/hr, Administer over 5 Minutes, Every 24 hours scheduled, First dose on Wed02/12/19 at 1100, Indications: fever and leukocytosisIndications:feve r and leukocytosis New Bag 02/13/2019 8:57 AM CDT 1,000 mg 120 mL/hr New Bag 02/12/2019 11:05 AM CDT 1,000 mg 120 mL/hr dextrose (D10W) 10% bolus 250 mL 250 mL, intravenous, at 1,000 mL/hr, Administer over 15 Minutes, Every 15 min PRN, blood glucose less than 70 mg/dL and UNABLE to swallow/take PO glucose/juice., Starting on Wed02/13/19 at 1503, After treatment for hypoglycemia, recheck BG followed by treatment every 15 minutes until the BG is greater than 100 mg/dL. Then check BG 1 hour post treatment. If BG is less than 100 mg/dL, repeat Q15 minute BG checks and treatment. Call MD for each episode of hypoglycemia., Indications: hypoglycemic disorderIndications:hypoglycemic disorder dextrose 5% and sodium chloride 0.45% infusion (premix) 100 mL/hr, intravenous, Continuous, Starting on Wed02/10/19 at 1324, Start when blood glucose less than 250 notify MD when glucose less than 250 and adjusting IV fluids. New Bag 02/13/2019 10:54 AM CDT 100 mL/hr 100 mL/hr Restarted 02/12/2019 6:30 AM CDT 100 mL/hr 100 mL/hr New Bag 02/12/2019 12:01 AM CDT 100 mL/hr 100 mL/hr dextrose gel in packet 15 g 15 g, oral, Every 15 min PRN, low blood sugar, blood glucose less than 70 mg/dL, Starting on Wed02/13/19 at 1503, If patient is alert and able to [...] episode of hypoglycemia., Indications: hypoglycemic disorderIndications:hypoglycemic disorder famotidine (PEPCID) injection 20 mg 20 mg, intravenous, Administer over 2 Minutes, Daily, First dose on Wed02/10/19 at 1830, Administer undiluted IVpush at a rate of 10 mg/minute. Given 02/10/2019 8:36 PM CDT 20 mg Given 02/10/2019 6:20 PM CDT 20 mg glucagon injection 1 mg 1 mg, intramuscular, Administer over 1 Minutes, Every 30 min PRN, low blood sugar, blood glucose less than 70 mg/dL AND no IV access AND unable to take PO glucose/jiuce., Starting on Wed02/13/19 at 1503, After Glucagon is administered, position patient on [...] each episode of hypoglycemia., Indications: HypoglycemiaIndications: Hypoglycemia influenza quadrivalent [id number] (FLULAVAL,FLUARIX,FLUZON E) 60 mcg (15 mcg x 4)/0.5 mL vaccine (STANDARD age 6 months and up) 0.5 mL 0.5 mL, intramuscular, During hospitalization, immunization, Starting on Wed02/10/19 at 1658, For 1 dose insulin glargine (LANTUS,BASAGLAR) pen injection 12 Units 12 Units, subcutaneous, Nightly, First dose (after last modification) on Wed02/13/19 at 2100, Do not mix with other insulins insulin lispro (HumaLOG) pen injection 1-3 Units 1-3 Units, subcutaneous, Nightly, First dose on Wed02/13/19 at 2100, Blood Sugar Mid Dose PM - PO patients 175 or less No insulin 176 - 200 1 unit 201 - 250 2 units 251 - 299 3 units Greater than 299 Call MD for hyperglycemia management instructions Do NOT hold for NPO status., Indications: Diabetes MellitusIndications:Diab etes Mellitus insulin lispro (HumaLOG) pen injection 1-5 Units 1-5 Units, subcutaneous, 3 times daily with meals, First dose on Wed02/13/19 at 1800, Blood Sugar Mid Dose meal time - PO patients 139 or less No insulin 140 - 175 1 unit 176 - 200 2 unit 201 - 250 3 units 251 - 299 5 units Greater than 299 Call MD for hyperglycemia management instructions Do NOT hold for NPO status., Indications: Diabetes MellitusIndications:Diab etes Mellitus Given 02/13/2019 4:48 PM CDT 3 Units Left Upper Arm insulin lispro (HumaLOG) pen injection 2 Units 2 Units, subcutaneous, 3 times daily with meals, First dose on Wed02/13/19 at 1800 Given 02/13/2019 4:49 PM CDT 2 Units Left Upper Arm insulin lispro (HumaLOG) pen injection 5 Units 5 Units, subcutaneous, 3 times daily with meals, First dose (after last modification) on Wed02/13/19 at 1800 insulin regular (HumuLIN R, NovoLIN R) 100 Units in sodium chloride 0.9% 100 mL (1 Units/mL) infusion 0-30 Units/hr (0-30 mL/hr), 1 units/mL, intravenous, Titrated, Starting on Wed02/10/19 at 1220, Until Wed02/13/19 at 1501, Indications: Hyperglycemia, Desired Range (mg/dL): 130-180 general patients, Multiplier: 0.01, Adjust rate per GlucoStabilizer program for dka order When new IV tubing is used, completely prime the tubing. Once primed, waste an additional 20 ml of insulin infusion using the IV pump prior to connecting to patient., RoutineIndications:Hyper glycemia Rate/Dose Change 02/13/2019 12:40 PM CDT 1.6 Units/hr 1.6 mL/hr Rate/Dose Change 02/13/2019 11:37 AM CDT 1.5 Units/hr 1.5 mL/hr Rate/Dose Change 02/13/2019 10:23 AM CDT 1.6 Units/hr 1.6 mL/hr magnesium sulfate 2 g/50 mL in water (premix) 2 g 2 g, intravenous, Administer over 60 Minutes, Once, On Wed02/10/19 at 2130, For 1 dose, Do not give if serum Cr greater than 2.5 mg/dL., Indications: Magnesium RepletionIndications:Magnesium Repletion New Bag 02/10/2019 10:09 PM CDT 2 g metoclopramide (REGLAN) injection 5 mg 5 mg, intravenous, Administer over 1 Minutes, Every 8 hours scheduled, First dose on Wed02/13/19 at 1530 Given 02/13/2019 3:30 PM CDT 5 mg ondansetron (ZOFRAN) 4 mg/2 mL injection - ADS Override Pull Starting on Wed02/10/19 at 1103, For 1 dose, Created by cabinet override ondansetron (ZOFRAN) 4 mg/2 mL injection - ADS Override Pull Starting on Wed02/10/19 at 1814, For 1 dose, ARNOLD CANTU RN: cabinet override Given 02/10/2019 6:19 PM CDT 4 mg ondansetron (ZOFRAN) injection 4 mg 4 mg, intravenous, Administer over 2 Minutes, Once, On Wed02/10/19 at 1106, For 1 dose, Indications: Nausea, VomitingIndications:Nausea,Vomiting Given 02/10/2019 11:13 AM CDT 4 mg ondansetron (ZOFRAN) injection 4 mg 4 mg, intravenous, Administer over 2 Minutes, Every 6 hours PRN, nausea, vomiting, Starting on Wed02/10/19 at 1811, Give IV push over at least 2 minutes. Given 02/12/2019 2:44 PM CDT 4 mg Given 02/11/2019 11:20 PM CDT 4 mg Given 02/11/2019 8:17 AM CDT 4 mg ondansetron (ZOFRAN) injection 8 mg 8 mg, intravenous, Administer over 2 Minutes, Once, On Wed02/10/19 at 1347, For 1 dose, Indications: Nausea and VomitingIndications:Nausea and Vomiting Given 02/10/2019 3:56 PM CDT 8 mg pantoprazole (PROTONIX) injection 40 mg 40 mg, intravenous, Administer over 2 Minutes, Every 24 hours scheduled, First dose on Wed02/11/19 at 0900, Indications: GI Bleed, Stress Ulcer ProphylaxisIndications:GI Bleed,Stress Ulcer Prophylaxis Given 02/12/2019 7:53 AM CDT 40 mg Given 02/11/2019 8:17 AM CDT 40 mg pantoprazole (PROTONIX) injection 40 mg 40 mg, intravenous, Administer over 2 Minutes, Every 24 hours scheduled, First dose (after last modification) on Wed02/13/19 at 0900, Reconstitution Instructions for Dry Powder Vials:40 mg vial: add 10 mL of sodium chloride 0.9% to achieve a final concentration of 4 mg/mL. Administer IV push over at least 2 minutes. Reconstituted solution stable for 2 hours at room temp. Flush IV line before and after administration with D5W, NS, or LR., , , Indications: GI BleedIndications:GI Bleed Given 02/13/2019 8:57 AM CDT 40 mg potassium chloride 40 mEq in sodium chloride 0.9% 500 mL IVPB 40 mEq, intravenous, at 130 mL/hr, Administer over 4 Hours, Once, On Wed02/13/19 at 1600, For 1 dose, Indications: hypokalemiaIndications:hypokalemia New 02/13/2019 4:14 PM CDT 40 mEq 130 mL/hr potassium phosphates 20 mmol in sodium chloride 0.9% 500 mL IVPB 20 mmol, intravenous, at 84.4 mL/hr, Administer over 6 Hours, Once, On Wed02/11/19 at 1100, For 1 dose, For PERIPHERAL line administration New 02/11/2019 11:40 AM CDT 20 mmol 84.4 mL/hr potassium phosphates 23 mmol in sodium chloride 0.9% 250 mL IVPB 23 mmol, intravenous, at 42.9 mL/hr, Administer over 6 Hours, Once, On Wed02/13/19 at 0800, For 1 dose, For CENTRAL line administration Potassium phosphate 23 mmol ivpb run X 1 dose per pharmacy electrolyte replacement protocol for potassium +=3.2 and phosphorous = 1.8 on 02/13/19 New 02/13/2019 8:12 AM CDT 23 mmol 4 2.9 mL/hr prochlorperazine (COMPAZINE) injection 5 mg 5 mg, intravenous, Administer over 2 Minutes, Every 6 hours PRN, nausea, vomiting, Starting on 02/11/19 at 0857 Given 02/12/2019 3:13 PM CDT 5 mg Given 02/12/2019 7:53 AM CDT 5 mg Given 02/11/2019 9:14 AM CDT 5 mg sodium chloride 0.9% bolus 1,000 mL 1,000 mL, intravenous, at 1,000 mL/hr, Administer over 1 Hours, Once, On Wed02/10/19 at 1114, For 1 dose New Bag 02/10/2019 11:24 AM CDT 1,000 mL 1000 mL/hr sodium chloride 0.9% bolus 1,000 mL 1,000 mL, intravenous, at 1,000 mL/hr, Administer over 1 Hours, Once, On Wed02/10/19 at 1220, For 1 dose New Bag 02/10/2019 1:32 PM CDT 1,000 mL 1000 mL/hr sodium chloride 0.9% bolus 500 mL 500 mL, intravenous, Once, On Wed02/12/19 at 0930, For 1 dose New Bag 02/12/2019 8:52 AM CDT 500 mL sodium chloride 0.9% flush 5-10 mL 5-10 mL, intra-catheter, Every 8 hours scheduled, First dose on Wed02/12/19 at 1400, Flush volume based on line type, size, and protocol. Given 02/13/2019 3:44 PM CDT 10 mL Given 02/13/2019 8:13 AM CDT 10 mL Given 02/12/2019 9:51 PM CDT 10 mL sodium chloride 0.9% flush 5-10 mL 5-10 mL, intra-catheter, As needed, line care, with each use, Starting on Wed02/12/19 at 1251, Flush volume based on line type, size, and protocol. sodium phosphate 20 mmol in sodium chloride 0.9% 250 mL IVPB 20 mmol, intravenous, at 42.8 mL/hr, Administer over 6 Hours, Once, On Wed02/12/19 at 1100, For 1 dose New Bag 02/12/2019 12:48 PM CDT 20 mmol 42.8 mL/hr documented in this encounter Discontinued Medications Medication Sig Discontinue Reason Start Date End Da te insulin lispro (HumaLOG) 100 unit/mL injection Inject under the skin Therapy completed 02/10/2019 documented as of this encounter Historical Medications * This list may reflect changes made after this encounter. insulin lispro (HumaLOG) 100 unit/mL injection Inject under the skin 3 (three) times a day before meals Uses per sliding scale 1 unit per every 7-8 grams of carb max of 50 units per day insulin lispro (HumaLOG) 100 unit/mL injection Inject under the skin 02/10/2019 added in this encounter Active and Recently Administered Medications Times are shown in CDT. Scheduled Medication Order 02/11/2019 02/12/2019 02/13/2019 cefTRIAXone (ROCEPHIN) 1,000 mg/10 mL in sterile water (premix) 1,000 mg (CANCELED) 1,000 mg, intravenous, at 120 mL/hr, Administer over 5 Minutes, Every 24 hours scheduled, First dose on Wed02/12/19 at 1100, Indications: fever and leukocytosis 1105 (New Bag - Provider: Мария Collins, RN) 0857 (New Bag - Provider: Ida Hair, MARY) enoxaparin (LOVENOX) syringe 40 mg 40 mg, subcutaneous, Daily (for enoxaparin), First dose on Wed02/10/19 at 2100, Indications: Deep Vein Thrombosis Prevention 2116 (Not Given - Provider: Kelsy Gooden, MARY - Reason: Patient/family refused) 0 (Not Given - Provider: Kelsy Gooden RN - Reason: Patient/family refused) insulin glargine (LANTUS,BASAGLAR) pen injection 12 Units 12 Units, subcutaneous, Nightly, First dose (after last modification) on Wed02/13/19 at 2100, Do not mix with other insulins insulin lispro (HumaLOG) pen injection 1-3 Units 1-3 Units, subcutaneous, Nightly, First dose on Wed02/13/19 at 2100, Blood Sugar Mid Dose PM - PO patients 175 or less No insulin 176 - 200 1 unit 201 - 250 2 units 251 - 299 3 units Greater than 299 Call MD for hyperglycemia management instructions Do NOT hold for NPO status., Indications: Diabetes Mellitus insulin lispro (HumaLOG) pen injection 1-5 Units 1-5 Units, subcutaneous, 3 times daily with meals, First dose on Wed02/13/19 at 1800, Blood Sugar Mid Dose meal time - PO patients 139 or less No insulin 140 - 175 1 unit 176 - 200 2 unit 201 - 250 3 units 251 - 299 5 units Greater than 299 Call MD for hyperglycemia management instructions Do NOT hold for NPO status., Indications: Diabetes Mellitus 1648 (Given - Provider: Ida Hair, MARY) insulin lispro (HumaLOG) pen injection 2 Units (CANCELED) 2 Units, subcutaneous, 3 times daily with meals, First dose on Wed02/13/19 at 1800 1649 (Given - Provider: Ida Hair, MARY) insulin lispro (HumaLOG) pen injection 5 Units 5 Units, subcutaneous, 3 times daily with meals, First dose (after last modification) on Wed02/13/19 at 1800 1800 (Due) metoclopramide (REGLAN) injection 5 mg 5 mg, intravenous, Administer over 1 Minutes, Every 8 hours scheduled, First dose on Wed02/13/19 at 1530 1530 (Given - Provider: Ida Hair, MARY) pantoprazole (PROTONIX) injection 40 mg (CANCELED) 40 mg, intravenous, Administer over 2 Minutes, Every 24 hours scheduled, First dose on Wed02/11/19 at 0900, Indications: GI Bleed, Stress Ulcer Prophylaxis 0817 (Given - Provider: Kanchan Montalvo, MARY) 0753 (Given - Provider: Мария Collins, MARY) pantoprazole (PROTONIX) injection 40 mg 40 mg, intravenous, Administer over 2 Minutes, Every 24 hours scheduled, First dose (after last modification) on Wed02/13/19 at 0900, Reconstitution Instructions for Dry Powder Vials:40 mg vial: add 10 mL of sodium chloride 0.9% to achieve a final concentration of 4 mg/mL. Administer IV push over at least 2 minutes. Reconstituted solution stable for 2 hours at room temp. Flush IV line before and after administration with D5W, NS, or LR., , , Indications: GI Bleed 0857 (Given - Provider: Ida Hair, MARY) potassium chloride 40 mEq in sodium chloride 0.9% 500 mL IVPB 40 mEq, intravenous, at 130 mL/hr, Administer over 4 Hours, Once, On 02/13/19 at 1600, For 1 dose, Indications: hypokalemia 1614 (New Bag - Provider: Ida Hair, MARY) potassium chloride ER (KLOR-CON) extended release tablet 40 mEq 40 mEq, oral, Once, On 02/13/19 at 1530, For 1 dose, Do not crush, chew, cut, dissolve, open or otherwise manipulate tablet/capsule. 1614 (Not Given - Provider: Ida Hair RN - Reason: Patient/family refused) potassium phosphates 20 mmol in sodium chloride 0.9% 500 mL IVPB (COMPLETED) 20 mmol, intravenous, at 84.4 mL/hr, Administer over 6 Hours, Once, On 02/11/19 at 1100, For 1 dose, For PERIPHERAL line administration 1140 (New Bag - Provider: Kanchan Montalvo RN) potassium phosphates 23 mmol in sodium chloride 0.9% 250 mL IVPB (COMPLETED) 23 mmol, intravenous, at 42.9 mL/hr, Administer over 6 Hours, Once, On 02/13/19 at 0800, For 1 dose, For CENTRAL line administration Potassium phosphate 23 mmol ivpb run X 1 dose per pharmacy electrolyte replacement protocol for potassium +=3.2 and phosphorous = 1.8 on 02/13/19 0812 (New Bag - Provider: Ida Hair RN) sodium chloride 0.9% bolus 500 mL (COMPLETED) 500 mL, intravenous, Once, On 02/12/19 at 0930, For 1 dose 0852 (New Bag - Provider: Мария Collins RN) sodium chloride 0.9% flush 5-10 mL 5-10 mL, intra-catheter, Every 8 hours scheduled, First dose on 02/12/19 at 1400, Flush volume based on line type, size, and protocol. 1444 (Given - Provider: Мария Collins RN)2151 (Given - Provider: Kelsy Gooden RN) 0813 (Given - Provider: Ida Hair, MARY)1544 (Given - Provider: Ida Hair, MARY) sodium phosphate 20 mmol in sodium chloride 0.9% 250 mL IVPB (COMPLETED) 20 mmol, intravenous, at 42.8 mL/hr, Administer over 6 Hours, Once, On Wed02/12/19 at 1100, For 1 dose 1248 (New Bag - Provider: Мария Collins RN - Comment: patient had no line) Continuous Medication Order 02/11/2019 02/12/2019 02/13/2019 dextrose 5% and sodium chloride 0.45% infusion (premix) (CANCELED) 100 mL/hr, intravenous, Continuous, Starting on Wed02/10/19 at 1324, Start when blood glucose less than 250 notify MD when glucose less than 250 and adjusting IV fluids. 0001 (New Bag - Provider: Kelsy Gooden RN)0440 (Hold - Provider: Kelsy Gooden RN - Reason: Loss of IV access)0630 (Restarted - Provider: Kelsy Gooden RN) 1054 (New Bag - Provider: Ida Hair, RN)1540 (Stopped - Provider: Ida Hair, RN) insulin regular (HumuLIN R, NovoLIN R) 100 Units in sodium chloride 0.9% 100 mL (1 Units/mL) infusion (CANCELED) 0-30 Units/hr (0-30 mL/hr), 1 units/mL, intravenous, Titrated, Starting on Wed02/10/19 at 1220, Until Wed02/13/19 at 1501, Indications: Hyperglycemia, Desired Range (mg/dL): 130-180 general patients, Multiplier: 0.01, Adjust rate per GlucoStabilizer program for dka order When new IV tubing is used, completely prime the tubing. Once primed, waste an additional 20 ml of insulin infusion using the IV pump prior to connecting to patient., Routine 0126 (Rate/Dose Change - Provider: Kelsy Gooden RN)0238 (Rate/Dose Change - Provider: Kelsy Gooden RN)0433 (Rate/Dose Change - Provider: Kelsy Gooden RN)0633 (Rate/Dose Change - Provider: Kelsy Gooden RN)0810 (Rate/Dose Change - Provider: Kanchan Montalvo, MARY)0910 (Rate/Dose Change - Provider: Kanchan Montalvo, MARY)1005 (Rate/Dose Change - Provider: Kanchan Montalvo RN)1135 (Rate/Dose Change - Provider: Kacnhan Montalvo, MARY)1300 (Rate/Dose Change - Provider: Kanchan Montalvo RN)1410 (Rate/Dose Change - Provider: Kanchan Montalvo, RN)1500 (Rate/Dose Change - Provider: Kanchan Montalvo, RN)1609 (Rate/Dose Change - Provider: Kanchan Montalvo, RN)1729 (Rate/Dose Change - Provider: Kanchan Montalvo, RN)1845 (Rate/Dose Change - Provider: Kanchan Montalvo, RN)2108 (Rate/Dose Verify - Provider: Kelsy Gooden, RN)2320 (Rate/Dose Change - Provider: Kelsy Gooden RN) 0105 (Rate/Dose Change - Provider: Kelsy Gooden, RN)0312 (Rate/Dose Change - Provider: Kelsy Gooden, RN)0440 (Hold - Provider: Kelsy Gooden RN - Reason: Loss of IV access)0630 (Restarted - Provider: Kelsy Gooden, MARY)0633 (New Bag - Provider: Kelsy Gooden, MARY)0745 (Rate/Dose Change - Provider: Мария Collins RN)0850 (Rate/Dose Change - Provider: Мария Collins RN)0950 (Rate/Dose Change - Provider: Мария Collins RN)1050 (Rate/Dose Change - Provider: Мария Collins RN)1155 (Rate/Dose Change - Provider: Мария Collins RN)1315 (Rate/Dose Change - Provider: Мария Collins RN)1410 (Rate/Dose Change - Provider: Мария Collins RN)1510 (Rate/Dose Change - Provider: Мария Collins RN)1610 (Rate/Dose Change - Provider: Мария Collins RN)1719 (Rate/Dose Change - Provider: Мария Collins RN)1815 (Rate/Dose Change - Provider: Мария Collins RN)1934 (Rate/Dose Change - Provider: Kelsy Gooden, MARY)2148 (Rate/Dose Change - Provider: Kelsy Gooden, RN) 0002 (Rate/Dose Change - Provider: Kelsy Gooden RN)0136 (Rate/Dose Change - Provider: Kelsy Gooden RN)0302 (Rate/Dose Change - Provider: Kelsy Gooden, RN)0624 (Rate/Dose Change - Provider: Kelsy Gooden RN)0759 (Rate/Dose Change - Provider: Ida Hair RN)0851 (Rate/Dose Change - Provider: Ida Hair, RN)1023 (Rate/Dose Change - Provider: Ida Hair RN)1137 (Rate/Dose Change - Provider: Ida Hair RN)1240 (Rate/Dose Change - Provider: Ida Hair RN)1540 (Stopped - Provider: Ida Hair, RN) PRN Medication Order 02/11/2019 02/12/2019 02/13/2019 dextrose (D10W) 10% bolus 250 mL(Linked Group 1) 250 mL, intravenous, at 1,000 mL/hr, Administer over 15 Minutes, Every 15 min PRN, blood glucose less than 70 mg/dL and UNABLE to swallow/take PO glucose/juice., Starting on Wed02/13/19 at 1503, After treatment for hypoglycemia, recheck BG followed [...] glucose less than 70 mg/dL, Starting on Wed02/13/19 at 1503, If patient is alert and able to [...] unable to take PO glucose/jiuce., Starting on 02/13/19 at 1503, After Glucagon is administered, position patient on [...] for each episode of hypoglycemia., Indications: Hypoglycemia influenza quadrivalent [id number] (FLULAVAL,FLUARIX,FLUZONE) 60 mcg (15 mcg x 4)/0.5 mL vaccine (STANDARD age 6 months and up) 0.5 mL 0.5 mL, intramuscular, During hospitalization, immunization, Starting on Wed02/10/19 at 1658, For 1 dose ondansetron (ZOFRAN) injection 4 mg 4 mg, intravenous, Administer over 2 Minutes, Every 6 hours PRN, nausea, vomiting, Starting on Wed02/10/19 at 1811, Give IV push over at least 2 minutes. 0817 (Given - Provider: Kanchan Montalvo RN)2320 (Given - Provider: Kelsy Gooden RN) 1444 (Given - Provider: Мария Collins, MARY) prochlorperazine (COMPAZINE) injection 5 mg 5 mg, intravenous, Administer over 2 Minutes, Every 6 hours PRN, nausea, vomiting, Starting on 02/11/19 at 0857 0914 (Given - Provider: Kanchan Montalvo RN) 0753 (Given - Provider: Мария Collins, MARY)1513 (Given - Provider: Мария Collins, MARY) sodium chloride 0.9% flush 5-10 mL 5-10 mL, intra-catheter, As needed, line care, with each use, Starting on Wed02/12/19 at 1251, Flush volume based on line type, size, and protocol. Linked Groups Order Group 1: dextrose gel in packet 15 gJump to med 15 g, oral, Every 15 min PRN, low blood sugar, blood glucose less than 70 mg/dL, Starting on Wed02/13/19 at 1503, If patient is alert and able to [...] UNABLE to swallow/take PO glucose/juice., Starting on Wed02/13/19 at 1503, After treatment for hypoglycemia, recheck BG followed [...] dextrose (D10W) 10% bolus 250 mL 1 02/14/20 dextrose gel in packet 15 g 1 02/13/2019 glucagon injection 1 mg 1 02/13/2019 insulin glargine (LANTUS,BAS AGLAR) pen injection 12 Units 1 02/13/2019 insulin glargine (LANTUS,BAS AGLAR) pen injection 6 Units 1 02/13/2019 insulin lispro (HumaLOG) pen injection 1-3 Units 1 02/13/2019 insulin lispro (HumaLOG) pen injection 5 Units 1 02/13/2019 potassium chloride ER (KLOR- CON) extended release tablet 40 mEq 1 02/13/2019 sodium chloride 0.9% flush 5-10 mL 1 2018 dextrose (D10W) 10% bolus 1-500 mL 1 2018 dextrose 5% infusion 1 02/10/2019 enoxaparin (LOVENOX) syringe 40 mg 1 2018 influenza quadrivalent 2019 (FLULAVAL,FLUARIX,FLUZONE) 60 mcg (15 mcg x 4)/0.5 mL vaccine (STANDARD age 6 months and up) 0.5 mL 1 02/10/2019 insulin regular bolus from bag 1-10 Units 1 02/10/2019 potassium chloride 40 mEq in sodium chloride 0.9% 500 mL IVPB 1 02/10/2019 prochlorperazine (COMPAZINE) injection 10 mg 2 02/10/2019 sodium chloride 0.45% infusion 1 02/10/2019 Lab Orders Without Results Count Last Ordered D ate First Ordered Date POCT GLUCOSE DEVICE 3 02/11/2019 02/11/20 19 Nursing Count Last Ordered Date First Orde red Date ACTIVITY 1 02/10/2019 CARDIO RESPIRATORY MONITORING 1 02/10/2019 CONTINUOUS PULSE OXIMETRY 1 02/10/2019 INCENTIVE SPIROMETRY NURSING 1 02/10/2019 NOTIFY PROVIDER (SPECIFY) 1 02/10/2019 STRICT INTAKE AND OUTPUT 1 02/10/2019 TELEMETRY MONITORING 1 02/10/2019 WEIGH PATIENT 1 02/10/2019 IV Count Last Ordered Date First Orde red Date INSERT PERIPHERAL IV 1 02/10/2019 SALINE LOCK IV 1 02/10/2019 ADT Patient Update Count Last Ordered Date Firs t Ordered Date ED IP DECISION TO ADMIT 1 02/10/2019 documented in this encounter Care Teams Bunch Maker Relationship Specialty Start Date End Date Carrie Joseph PA [address] [place] [address] PCP - General 10/04/18 07/19/21 documented as of this encounter
--- OUTSIDE RECORDS SUMMARY | 2024-05-10 18:41 | XMS_ITS | Encounter Summary ---
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
--- OUTSIDE RECORDS SUMMARY | 2024-05-10 18:41 | XMS_ITS | Encounter Summary ---
Author Organization [facility] Address [address] [place] [address] Care Team Providers Care Doctor Of Podiatry Name Role Phone Carrie Joseph Primary Care Provider + Encounter Details Date Type Department Care Team (Late st Contact Info) Description 11/10/2018 2:53 PM CDT Anesthesia Event [facility] Operating Room [address] [place] [address] Tawanda Perea MD [address] [place] [address] Anesthesia Record Procedure Summary Procedure Name Responsible Anesthesiologist Anesthesia Start Time Anesthesia Stop Time SUCTION DILATION AND CURETTAGE (Uterus) Tawanda Perea MD 11/10/18 1453 11/10/18 1546 Events Date Time Event Comment 11/10/2018 1308 Proc Start 1328 1450 In Room 1453 An Start 1453 An Start Data 1455 An Induction The patient was reevaluated immediately before moderate or deep sedation use and before anesthesia induction. 1457 An LMA 1458 Anesthesia Ready 1533 Quick Note .Two or more Pr ophylactic Antiemetics given 1534 Proc Fin 1540 Airway Removed 1542 an stop data 1542 Out of Room 1546 Handoff to RN I completed my handoff [...] disposition at the time of handoff: PACU 1546 An Stop 1707 Release from care Meds Name Total midazolam 2 mg fentaNYL 100 mcg propofol 150 mg dexamethasone 10 mg ondansetron 4 mg ketorolac 30 mg sodium chloride 0.9% infusion 700 mL * Agents Name Sevoflurane Inspired Sevoflurane * Blood No blood administrations on file. Lines, Drains, and Airways Type Details Placement Removal Peripheral IV Placement Date: 11/10/18; Placement Time: 1446; Catheter Size: 20 G; Orientation: Right; Location: Antecubital; Site Prep: Chlorhexidine; Technique: Anatomical landmarks; Inserted by: Mauro Sims RN; Insertion Attempts: 2; Patient Tolerance: Tolerated well; Removal Date: 11/10/18; Removal Time: 2149 11/10/18 1446 by Tara Francis RN 11/10/18 214 by Juana Vail NP Supraglottic Airway Placement Date: 11/10/18; Placement Time: 1457 (created via procedure documentation); Mask Ventilation: 1; Size: 4; Insertion Attempts: 1; Removal Date: 11/10/18; Removal Time: 1540 11/10/18 1457 by Tj Brown CRNA 11/10/18 1540 by Tj Brown CRNA Urethral Catheter Placement Date: 11/10/18; Placement Time: 1502; Inserted by: LANDON MORE; Type: Non-latex; Urine Returned: Yes; Removal Date: 11/10/18; Removal Time: 1503; Removal Reason: Per protocol, Disontinued in OR, Other (Comment) (BLADDER DRAINED IN AND OUT) 11/10/18 1502 by Landon More RN 11/10/18 1503 by Landon More RN RETIRED Surgical Site 11/10/18; 1520; Co marco a; 06/16/19; Not present on admission 11/10/18 1520 by Landon More RN 06/16/19 0000 by Salud Del Angel RN documented in this encounter Social History Tobacco Use Types Packs/Day Years Used Date Smoking Tobacco: Never Smokeless Tobacco: Never Alcohol Use Standard Drinks/Week Comments Not Currently 0 (1 standard drink = 0.6 oz pur e alcohol) Comments Yes Sex and Gender Information Value Date Recorded Sex Assigned at Not on file 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 Gender Identity Not on file Sexual Orientation Not on file documented as of this encounter OR Notes * Anesthesia Postprocedure Evaluation - Tj Brown CRNA - 11/10/2018 3:47 PM CDT Patient: Karina Fuchs Procedure Summary Date: 11/10/18 Room / Location: [facility] OR [address] [place] [address] OPERATING ROOM Anesthesia Start: 1453 Anesthesia Stop: 1545 Procedure: SUCTION DILATION AND CURETTAGE (N/A Uterus) Diagnosis: (missed AB) Provider: Alexa Munoz MD Responsible Provider: Tawanda Perea MD Anesthesia Type: general ASA Status: 2 Anesthesia Type: general Last vitals BP 113/73 Pulse 110 Temp 36.3 ??C (97.3 ??F) (Temporal) Resp 16 SpO2 100% Anesthesia Post Evaluation Patient location during evaluation: PACU Patient participation: complete - patient participated Level of consciousness: fully awake Pain management: adequate Airway patency: adequate Evidence of recall: no Anesthetic complications: no Cardiovascular status: acceptable Respiratory status: acceptable Hydration status: acceptable Pt is: normothermic Nausea/Vomiting status: none * Anesthesia Procedure Notes - Tj Brown CRNA - 11/10/2018 3:07 PM CDTAssociated Order(s): Airway Airway Patient location: OR Urgency: elective Date/time: 11/10/2018 2:57 PM Indications for airway management: anesthesia Difficult airway: no Staff: Placed by: LOGGING CREW SUPERVISOR: Tj Brown CRNA Emergent airway documentation: Risks and benefits discussed: yes Consent obtained: yes Consent given by: patient Airway prep: Preoxygenated: yes Mask difficulty assessment: 1 - vent by mask Spontaneous ventilation during airway: absent Sedation level during airway: GA Final airway details: Final airway type: supraglottic airway Final supraglottic airway: classic SGA size: 4 Number of attempts: 1 Ventilation between attempts: none * Anesthesia Preprocedure Evaluation - Tawanda Perea MD - 11/10/2018 1:10 PM CDT Anesthesia Evaluation Karina Fuchs is a 23 y.o. female Procedure(s): SUCTION DILATION AND CURETTAGE * No Diagnosis Codes entered * HISTORY Past Medical History Information obtained from: patient and chart. Neurological Neuro/Psych system: negative Cardiovascular Cardiac system: negative Respiratory Respiratory system: negative Hepatic / Heme Hepatic/Heme system: negative Gastrointestinal GI system: negative Renal / Renal/ system: negative Musculoskeletal/Pain Musculoskeletal/Pain system: negative Endocrine / Other + Diabetes mellitus - Diabetes type 1. Outpatient insulin use: current. Day of Surgery assessments + Possibility of assessed (recent missed ) - HCG positive (see labs). Patient Active Problem List Diagnosis ??? Gastroenteritis ??? Sinus tachycardia ??? Normocytic anemia ??? Diabetic ketoacidosis with coma associated with type 1 diabetes mellitus (CMS/HCC) ??? Nausea and vomiting ??? Dehydration ??? Metabolic alkalosis ??? Uncontrolled type 1 diabetes mellitus with hyperglycemia (CMS/HCC) ??? Ketonuria ??? Thrombocytosis (CMS/HCC) ??? Type 1 diabetes mellitus with hyperglycemia (CMS/HCC) ??? Type 1 diabetes mellitus with ketoacidosis without coma (CMS/HCC) ??? Sepsis due to gram-negative UTI (CMS/HCC) ??? Less than 8 weeks gestation of ??? Hypokalemia ??? Hyperemesis gravidarum with metabolic disturbance Past Medical History: Diagnosis Date ??? Depression ??? Diabetes mellitus (CMS/HCC) ??? HX OTHER MEDICAL 2011 Diabetes mellitus, type 1 ??? Miscarriage Past Surgical History: Procedure Laterality Date ??? ABDOMINAL SURGERY ??? SECTION, CLASSIC 2016 ??? TONSILLECTOMY Bilateral 2002 OB History 1 Para Term AB Living SAB TAB Ectopic Multiple Live Births No Known Allergies HOME MEDICATIONS : glucagon 1 mg kit insulin glargine (LANTUS,BASAGLAR) 100 unit/mL (3 mL) insulin pen Current Facility-Administered Medications: ??? acetaminophen (TYLENOL) tablet 1,000 mg, 1,000 mg, oral, Once ??? midazolam (VERSED) preservative free injection 1 mg, 1 mg, intravenous, Q10 Min PRN ??? sodium chloride 0.9% flush 0.5-20 mL, 0.5-20 mL, intra-catheter, PRN ??? sodium chloride 0.9% infusion, 30 mL/hr, intravenous, Continuous Social History Tobacco Use Smoking Status Never Smoker Smokeless Tobacco Never Used Substance and Sexual Activity Alcohol Use Not Currently Substance and Sexual Activity Drug Use No Family History Problem Relation Age of Onset ??? No Known Problems Mother ??? Autism Brother PAT Physical Exam Vitals: 11/10/18 1315 BP: 113/73 Pulse: 110 Resp: 16 Temp: 36.2 ??C (97.1 ??F) SpO2: 100% PT: No results found for requested labs within last 720 hours. INR: No results found for requested labs within last 720 hours. APTT: No results found for requested labs within last 720 hours. Hgb A1C: No results found for requested labs within last 720 hours. CBC RBC: 11/08/2018: 3.74 M/cumm* RDW: No results found for requested labs within last 720 hours. MCHC: 11/08/2018: 36.6 g/dL* MCH: 11/08/2018: 30.2 pg MCV: 11/08/2018: 82.6 fL Hct: 11/08/2018: 30.9 %* Hgb: 11/08/2018: 11.3 g/dL* WBC: 11/08/2018: 12.5 K/cumm* MPV: 11/08/2018: 8.5 fL* Platelets: 11/08/2018: 358 K/cumm RDW CV: 11/08/2018: 13.2 % RDW Sd: 11/08/2018: 39.8 fL BMP Glucose: 11/08/2018: 250 mg/dL* Calcium: 11/08/2018: 8.3 mg/dL* Sodium: 11/08/2018: 130 mmol/L* Potassium: 11/08/2018: 3.6 mmol/L CO2: 11/08/2018: 18 mmol/L* Chloride: 11/08/2018: 100 mmol/L BUN: 11/08/2018: <3 mg/dL* Creatinine: 11/08/2018: 0.24 mg/dL* DOS Physical Exam Medical history, medications, and allergies reviewed. Attestation: I endorse the findings of the anesthesia pre-evaluation assessment dated: 11/10/2018. Airway Exam: Mallampati: I Cervical ROM: FROM TM distance: >4 Jaw ROM: full Cardiovascular Exam: Rate: regular Rhythm: regular Pulmonary Exam: LCTA, bilat Dental Exam: Appears intact Current state: Patient's current state is cooperative and interactive. Anesthesia Plan ASA 2 My patient is approved for the Anesthesia Controlled Medication protocol when under care of a LOGGING CREW SUPERVISOR Planned anesthesia: General Team communication plan: LMA Induction: Induction: intravenous. Postoperative Plan: Postoperative administration opioids intended. No postoperative mechanical ventilation intended. Patient's planned disposition post procedure is Outpatient. Informed Consent: Discussed plan with attending and LOGGING CREW SUPERVISOR. Anesthesia plan and risks discussed with patient. [...] Procedure Name Priority Date/Time Associated Diagnosis Comments MD AN ELECTIVE SUPRAGLOTTIC AIRWAY Routine 11/10/2018 3:07 PM CDT Procedure Note - Tj Brown CRNA - 11/10/2018 3:07 PM CDTThis note is in progress. Airway Patient location: OR Urgency: elective Date/time: 11/10/2018 2:57 PM Indications for airway management: anesthesia Difficult airway: no Staff: Placed by: LOGGING CREW SUPERVISOR: Tj Brown CRNA Emergent airway documentation: Risks and benefits discussed: yes Consent obtained: yes Consent given by: patient Airway prep: Preoxygenated: yes Mask difficulty assessment: 1 - vent by mask Spontaneous ventilation during airway: absent Sedation level during airway: GA Final airway details: Final airway type: supraglottic airway Final supraglottic airway: classic SGA size: 4 Number of attempts: 1 Ventilation between attempts: none documented in this encounter Visit Diagnoses Not on filedocumented in this encounter Administered Medications Inactive Administered Medications - up to 3 most recent administrations Medication Order MAR Action Action Date Dose Rate Site dexamethasone (DECADRON) injection solution intravenous, Administer over 2 Minutes, As needed, Starting on Nurys 11/10/18 at 1500, Anesthesia Intra-op Given 11/10/2018 3:00 PM CDT 10 mg fentaNYL (SUBLIMAZE) preservative free injection intravenous, As needed, Starting on Nurys 11/10/18 at 1450, Anesthesia Intra-op Given 11/10/2018 3:06 PM CDT 50 mcg Given 11/10/2018 2:50 PM CDT 50 mcg ketorolac (TORADOL) injection As needed, Starting on Nurys 11/10/18 at 1500, Anesthesia Intra-op Given 11/10/2018 3:00 PM CDT 30 mg midazolam (VERSED) preservative free injection intravenous, Administer over 2 Minutes, As needed, Starting on Nurys 11/10/18 at 1450, Anesthesia Intra-op Given 11/10/2018 2:50 PM CDT 2 mg ondansetron (ZOFRAN) injection intravenous, Administer over 2 Minutes, As needed, Starting on Nurys 11/10/18 at 1532, Anesthesia Intra-op Given 11/10/2018 3:32 PM CDT 4 mg propofol (DIPRIVAN) IV intravenous, As needed, Starting on Nurys 11/10/18 at 1455, Anesthesia Intra-op Given 11/10/2018 2:55 PM CDT 150 mg sodium chloride 0.9% infusion 30 mL/hr, intravenous, Continuous, Starting on Nurys 11/10/18 at 1345, Pre-Op New Bag 11/10/2018 1:30 PM CDT documented in this encounter Orders Procedures Count Last Ordered Date First Orde red Date Airway 1 11/10/2018 documented in this encounter Care Teams Doctor Of Podiatry Relationship Specialty Start Date End Date Carrie Joseph PA [address] [place] [address] PCP - General 10/04/18 07/19/21 documented as of this encounter
--- OUTSIDE RECORDS SUMMARY | 2024-05-10 18:41 | XMS_ITS | Encounter Summary ---
Author Organization [facility] Care Team Providers Care Drier And Pulverizer Tender Name Role Phone Carrie Joseph Primary Care Provider + Encounter Details Date Type Department Care Team (Latest Contact Info) Description 02/10/2019 Travel Social History Tobacco Use Types Packs/Day Years Used Date Smoking Tobacco: Never Smokeless Tobacco: Never Alcohol Use Standard Drinks/Week Comments Not Currently 0 (1 standard drink = 0.6 oz pur e alcohol) PHQ-2 Answer Date Recorded PHQ-2 Score 0 12/24/2018 Comments No Sex and Gender Information Value Date Recorded Sex Assigned at Not on file 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
--- OUTSIDE RECORDS SUMMARY | 2024-05-10 18:41 | XMS_ITS | Encounter Summary ---
Author Organization [facility] Healthcare Address [address] [place] [address] Care Team Providers Care Weed Controller Name Role Phone Carrie Joseph Primary Care Provider + Reason for Visit * Reason Comments Vomiting Encounter Details Date Type Department Care Team (Late st Contact Info) Description 10/04/2018 2:46 AM CDT - 10/07/2018 6:35 PM CDT Hospital Encounter [facility] ICU [address] [place] [address] Boubacar Harrison MD [address] [facility] [address] [place] [address] Ayana Prado MD [address] [facility] [place] [place] [address] Ernestine Cisneros MD 1 [facility] [place] [address] Vomiting and diarrhea (Primary Dx); Less than 8 weeks gestation of Discharge Disposition: Discharge to home or self care Social History Tobacco Use Types Packs/Day Years Used Date Smoking Tobacco: Never Smokeless Tobacco: Never Alcohol Use Standard Drinks/Week Comments Yes 0 (1 standard drink = 0.6 oz pur e alcohol) Comments Yes Sex and Gender Information Value Date Recorded Sex Assigned at Not on file Legal Sex Female 3:13 AM NOTARY PUBLIC Gender Identity Not on file Sexual Orientation Not on file documented as of this encounter Last Filed Vital Signs Vital Sign Reading Time Taken Comments Blood Pressure 150/99 10/07/2018 4:00 PM CDT Pulse 112 10/07/2018 5:59 PM CDT Temperature 37 ??C (98.6 ??F) 10/07/2018 4:00 PM CDT Respiratory Rate 20 10/07/2018 5:59 PM CDT Oxygen Saturation 98% 10/07/2018 4:00 PM CDT Inhaled Oxygen Concentration - - Weight 63.1 kg (139 lb 1.8 oz) 10/07/2018 4:00 A M CDT Height 154.9 cm (5' 0.98 ) 10/05/2018 12:27 PM C DT Body Mass Index 26.3 10/05/2018 12:27 PM CDT documented in this encounter Discharge Summaries * Ernestine Cisneros MD - 10/07/2018 3:51 PM CDT Inpatient transfer Summary BRIEF OVERVIEW Admitting Provider: Ayana Prado MD Discharge Provider: Ernestine Cisneros MD Primary Care Physician at Discharge: KEANU Conway [phone] Admission Date: 10/04/2018 Discharge Date: 10/07/2018 Transfer Diagnosis 1. Diabetic ketoacidosis (history of diabetes type 1) 2. (per patient her last menstrual period was on August 06, 2018) Transfer Disposition Patient is being transferred to [facility] for higher level of care . Case discussed with OBGYN who accepted patient on behalf of Dr. Gonzales. Code Status at transfer: Full code Active Issues Requiring Follow-up 1. Patient needs to follow up with OBGYN at [facility] for further management of DKA and . Per Dr. Barrera at [facility] OBGYN manages DKA in unit Follow-Up 1. OBGYN at [facility] upon arrival 2. Hospitalist at [facility] upon arrival Test Results Pending at transfer Final blood culture results from 10/04/2018-prelim results are negative DETAILS OF HOSPITAL STAY Presenting Problem/History of Present Illness 23-year-old female with past medical history of diabetes type 1 who is currently came in for multiple episode of nonbloody vomiting started on day of presentation. Patient also reported abdominal cramping upon presentation. Patient noted to be in DKA. Patient admitted for further care. Hospital Course 1. Diabetic ketoacidosis Patient has history of diabetes type 1. Anion gap is still elevated despite of treatment for past 3 days. Hemoglobin A1c 9.4. Today patientstates her nausea and vomiting is worse. Because patient is patient needs to be transferred to [facility] with close OBGYN monitoring. Case discussed with Dr.Massa CANELA at [facility] who accepted the patient. Per at [facility] OBGYN manages DKA in perinatalunit. Continue with insulin drip, IV fluids per DKA protocol monitor BMP closely. Patient evaluated by family educator. According to [place] [employer] [facility] they do not take patient's insurance Operative Procedures Performed None Treatments: None Consults: health promotion educator ROLA Christine Procedures: None Radiology: None Today's Lab: Recent Results (from the past 24 hour(s)) POCT glucose Collection Time: 10/06/18 4:35 PM Result Value Ref Range Glucose, POC, bld 166 (H) 71 - 98 mg/dL POCT glucose Collection Time: 10/06/18 5:43 PM Result Value Ref Range Glucose, POC, bld 167 (H) 71 - 98 mg/dL POCT glucose Collection Time: 10/06/18 6:42 PM Result Value Ref Range Glucose, POC, bld 183 (H) 71 - 98 mg/dL POCT glucose Collection Time: 10/06/18 7:50 PM Result Value Ref Range Glucose, POC, bld 165 (H) 71 - 98 mg/dL Basic metabolic panel Collection Time: 10/06/18 8:03 PM Result Value Ref Range Sodium 133 (L) 135 - 145 mmol/L Potassium, pl 3.5 3.3 - 4.9 mmol/L Chloride 102 97 - 110 mmol/L CO2 19 (L) 22 - 32 mmol/L Anion Gap 12 2 - 15 mmol/L BUN <3 (L) 8 - 25 mg/dL Creatinine 0.31 (L) 0.60 - 1.10 mg/dL Glucose 176 70 - 199 mg/dL Calcium 8.3 (L) 8.5 - 10.3 mg/dL eGFR Collection Time: 10/06/18 8:03 PM Result Value Ref Range GFR 161 mL/min/1.73 m2 POCT glucose Collection Time: 10/06/18 8:41 PM Result Value Ref Range Glucose, POC, bld 193 (H) 71 - 98 mg/dL POCT glucose Collection Time: 10/06/18 9:34 PM Result Value Ref Range Glucose, POC, bld 153 (H) 71 - 98 mg/dL POCT glucose Collection Time: 10/07/18 1:39 AM Result Value Ref Range Glucose, POC, bld 236 (H) 71 - 98 mg/dL Renal function panel Collection Time: 10/07/18 4:26 AM Result Value Ref Range Sodium 133 (L) 135 - 145 mmol/L Potassium, pl 3.7 3.3 - 4.9 mmol/L Chloride 99 97 - 110 mmol/L CO2 17 (L) 22 - 32 mmol/L Anion Gap 17 (H) 2 - 15 mmol/L BUN 4 (L) 8 - 25 mg/dL Creatinine 0.36 (L) 0.60 - 1.10 mg/dL Glucose 235 (H) 70 - 199 mg/dL Calcium 8.3 (L) 8.5 - 10.3 mg/dL Phosphorus, pl 1.7 (L) 2.3 - 4.5 mg/dL Albumin 3.6 3.5 - 5.0 g/dL eGFR Collection Time: 10/07/18 4:26 AM Result Value Ref Range GFR 153 mL/min/1.73 m2 POCT glucose Collection Time: 10/07/18 7:31 AM Result Value Ref Range Glucose, POC, bld 239 (H) 71 - 98 mg/dL POCT glucose Collection Time: 10/07/18 10:50 AM Result Value Ref Range Glucose, POC, bld 167 (H) 71 - 98 mg/dL Basic metabolic panel Collection Time: 10/07/18 11:12 AM Result Value Ref Range Sodium 131 (L) 135 - 145 mmol/L Potassium, pl 3.8 3.3 - 4.9 mmol/L Chloride 97 97 - 110 mmol/L CO2 15 (L) 22 - 32 mmol/L Anion Gap 19 (H) 2 - 15 mmol/L BUN 5 (L) 8 - 25 mg/dL Creatinine 0.36 (L) 0.60 - 1.10 mg/dL Glucose 245 (H) 70 - 199 mg/dL Calcium 8.5 8.5 - 10.3 mg/dL eGFR Collection Time: 10/07/18 11:12 AM Result Value Ref Range GFR 153 mL/min/1.73 m2 POCT glucose Collection Time: 10/07/18 4:06 PM Result Value Ref Range Glucose, POC, bld 210 (H) 71 - 98 mg/dL Transfer Medications Your medication list START taking these medications Instructions Last Dose Given Next Dose Due dextrose 10% bolus Commonly known as: D10W Infuse 1-500 mL into a venous catheter as needed (blood glucose less than 70 mg/dL) dextrose 5% and sodium chloride 0.9% infusion Infuse 100 mL/hr into a venous catheter continuously famotidine 20 mg/2 mL injection Commonly known as: PEPCID Start taking on: 10/08/2018 Infuse 2 mL (20 mg total) into a venous catheter daily glucagon 1 mg kit Inject 1 mL (1 mg total) into the muscle as instructed every 30 (thirty) minutes as needed (blood glucose less than 70 mg/dL AND no IV access AND unable to take PO glucose/jiuce.) prochlorperazine 10 mg/2 mL (5 mg/mL) injection Commonly known as: COMPAZINE Infuse 1 mL (5 mg total) into a venous catheter every 6 (six) hours as needed for nausea or vomiting sodium chloride 0.9% 0.9% parenteral solution 99 mL with insulin regular 100 unit/mL solution 100 Units Infuse 0-30 Units/hr into a venous catheter as directed STOP taking these medications LEIA BENTLEY U-100 INSULIN 100 unit/mL (3 mL) insulin pen Generic drug: insulin glargine insulin lispro 100 unit/mL injection Commonly known as: HumaLOG metoclopramide 5 mg tablet Commonly known as: REGLAN ondansetron 4 mg tablet Commonly known as: ZOFRAN Where to Get Your Medications Information about where to get these medications is not yet available Ask your nurse or doctor about these medications ?? dextrose 10% bolus ?? dextrose 5% and sodium chloride 0.9% infusion ?? famotidine 20 mg/2 mL injection ?? glucagon 1 mg kit ?? prochlorperazine 10 mg/2 mL (5 mg/mL) injection ?? sodium chloride 0.9% 0.9% parenteral solution 99 mL with insulin regular 100 unit/mL solution 100 Units Transfer Instruction Other Instructions Special Instructions 1. Patient needs to follow up with OBGYN at [facility] for further management of DKA and . Per at [facility] OBGYN manages DKA in unit. Physical Exam at transfer Discharge Condition: Stable Pulse: 109 Resp: 16 BP: 115/76 Temp: 36.2 ??C (97.1 ??F) Weight: 63.1 kg (139 lb 1.8 oz) Patient is lying in the bed. Patient is afebrile. Patient is hemodynamically stable. Patient statesher nausea and vomiting is coming back. Patient denies any chest pain, shortness of breath, abdominal pain, diarrhea. Patient denies any headache, dizziness, palpitation. Physical Exam: Patient seen and examined Not in acute distress HEENT: AT/NC, Neck supple Heart: S1, S2, RRR Lung: CTA bilateral Abdomen: S, NT, ND, BS+ Neuro: AAO times 3, no focal deficit Ext: No gross lower extremity edema. No calf tenderness Time spent for transfer: 45 minutes Voice recognition software [employer] Direct was used dictate and transcribe this document. Hydroelectric Plant Technician variances may occur. Despite proofreading, typographical errors may occur. Ernestine Cisneros MD documented in this encounter Medications at Time of Discharge dextrose (D10W) 10% bolusIndications :Hypoglyemia Infuse 1-500 mL into a venous catheter as needed (blood glucose less than 70 mg/dL) 10/07/2018 9 dextrose 5 % and 0.9 % NaCl (DEXTROSE 5% AND SODIUM CHLORIDE 0.9%) infusion Infuse 100 mL/hr into a venous catheter continuously 10/07/2018 9 famotidine (PEPCID) 20 mg/2 mL injection Infuse 2 mL (20 mg total) into a venous catheter daily 10/08/2018 9 glucagon 1 mg kitIndications:H ypoglycemia Inject 1 mL (1 mg total) into the muscle as instructed every 30 (thirty) minutes as needed (blood glucose less than 70 mg/dL AND no IV access AND unable to take PO glucose/jiuce.) 10/07/2018 9 prochlorperazine (COMPAZINE) 10 mg/2 mL (5 mg/mL) injectionIndicat ions:Nausea and Vomiting Infuse 1 mL (5 mg total) into a venous catheter every 6 (six) hours as needed for nausea or vomiting 2 mL 10/07/2018 9 sodium chloride 0.9% 0.9% parenteral solution 99 mL with insulin regular 100 unit/mL solution 100 UnitsIndications :Hyperglycemia Infuse 0-30 Units/hr into a venous catheter as directed 10/07/2018 9 documented as of this encounter Ordered Prescriptions Prescription Sig Dispense Quantity Refills Last Filled Start Date End Date prochlorperazine (COMPAZINE) 10 mg/2 mL (5 mg/mL) injectionIndicati ons:Nausea and Vomiting Infuse 1 mL (5 mg total) into a venous catheter every 6 (six) hours as needed for nausea or vomiting 2 mL 10/07/2018 9 sodium chloride 0.9% 0.9% parenteral solution 99 mL with insulin regular 100 unit/mL solution 100 UnitsIndications: Hyperglycemia Infuse 0-30 Units/hr into a venous catheter as directed 10/07/2018 9 glucagon 1 mg kitIndications:Hy poglycemia Inject 1 mL (1 mg total) into the muscle as instructed every 30 (thirty) minutes as needed (blood glucose less than 70 mg/dL AND no IV access AND unable to take PO glucose/jiuce.) 10/07/2018 9 famotidine (PEPCID) 20 mg/2 mL injection Infuse 2 mL (20 mg total) into a venous catheter daily 10/08/2018 9 dextrose 5 % and 0.9 % NaCl (DEXTROSE 5% AND SODIUM CHLORIDE 0.9%) infusion Infuse 100 mL/hr into a venous catheter continuously 10/07/2018 9 dextrose (D10W) 10% bolusIndications: Hypoglyemia Infuse 1-500 mL into a venous catheter as needed (blood glucose less than 70 mg/dL) 10/07/2018 9 documented in this encounter Discharge Disposition Disposition Code Departure Means Destination Discharge to home or self care documented in this encounter Progress Notes * Sy, Ragini Selby, RD - 10/07/2018 8:55 AM CDT [facility] Nutrition Assessment NAME:Karina Menjivar :1995 AGE:23 y.o. SEX: female ADMISSION DATE:10/04/2018, CURRENT LOS is 3 days. ENCOUNTER DATE: 10/07/18 8:59 AM REASON for ASSESSMENT: Follow Up DX: VOMITING AND DIARRHEA Nutrition Screen What diet do you follow at home?: Diebtic Have You Recently Lost Weight Without Trying?: No Poor Oral Intake for Four or More Days Prior to Admission: No Current diet order: No diet orders on file Pt intake is inadequate. PO intakes: no po intake seen. ALLERGIES: Patient has no known allergies. ASPEN Malnutrition Assessment: Nutrition Focused Physical Exam Notes: Nutrition Needs Calculations: Calculated Energy Needs Using Equations Weight Used for Equation Calculations (RD Determined): 62.9 kg (138 lb 10.7 oz) Weight: 63.1 kg (139 lb 1.8 oz) Height: 154.9 cm (5' 0.98 ) Marco A Savage Equation (Overweight or Obese Patients): 1326 Equation Chosen to Use by RD: Bernardo Bliss Activity Factor: 1.2 Total Energy Needs: 1591.2 kcal Temp: 36.7 ??C (98 ??F) Total Energy Needs + Fever Factor: 1591.2 Estimated Protein Needs Type of Weight Used for Estimated Protein : Current Protein Needs Based on g/k.0 Total Protein Estimated Needs (gm): 62.9 Kcal/kg Type of Weight Used for Estimated Kcals: Current Kcal/k Total Kcal/kg Estimated Needs : 1698.3 Estimated Fluid Needs Type of Weight Used for Estimated Fluid Needs: Current Fluid Needs Based on : 30 ml/kg Total Fluid Estimated Needs: 1887 Estimated Carbohydrate Needs Type of Weight Used for Estimated Carbohydrate Needs: Current Recommended Carbohydrates for Breakfast (gm) : 30 Recommended Carbohydrates for Lunch (gm) : 60 Recommended Carbohydrates for Dinner (gm) : 60 Recommended Carbohydrates for HS Snack (gm) : 30 Total Daily Carbohydrates Recommended (gm): 180 Estimated needs: ?? Total Kcal/kg Estimated Needs : 1698.3 based on Kcal/k. Type of Weight Used for Estimated Kcals: Current ?? MSJ Total Energy Needs: 1591.2 kcal using ?? DEBORAH State Total Energy Needs + Fever Factor: 1591.2 ?? Total Protein Estimated Needs (gm): 62.9 Protein Needs Based on g/k.0 Type of Weight Used for Estimated Protein : Current. ?? Total Fluid Estimated Needs: 1887 Fluid Needs Based on : 30 ml/kg. Objective Anthropometrics Weight: 63.1 kg (139 lb 1.8 oz) Admission Weight : 134.8 kg Weight Change: -0.10 kg (-0.22 lbs) IBW/kg (Calculated) : 47.6 kg Height: 154.9 cm (5' 0.98 ) Weight in (lb) to have BMI = 25: 132 BMI (Calculated): 26.3 139% IBW. 3 Day I/O Summary 10/05 1899 - 10/07 0559 In: 5179 [P.O.:330; I.V.:4849] Out: 3685 [Urine:3425] Temp: 36.7 ??C (98 ??F) Mcfarlan body weight: 47.8 kg (105 lb 4.8 oz) Adjusted ideal body weight: 53.9 kg (118 lb 13.2 oz) Past Medical History: Diagnosis Date ??? Depression ??? Diabetes mellitus (CMS/HCC) ??? HX OTHER MEDICAL 2011 Diabetes mellitus, type 1 Medications and Lab Review: Scheduled Meds: famotidine 20 mg intravenous Daily insulin lispro 1-3 Units subcutaneous Nightly insulin lispro 1-3 Units subcutaneous Q24H insulin lispro 1-5 Units subcutaneous TID with meals sodium phosphate 0.4 mmol/kg intravenous Once Continuous Infusions: dextrose 5% and sodium chloride 0.45% 100 mL/hr Last Rate: 100 mL/hr (10/07/18 0730) Sodium Date Value Ref Range Status 10/07/2018 133 (L) 135 - 145 mmol/L Final Potassium, pl Date Value Ref Range Status 10/07/2018 3.7 3.3 - 4.9 mmol/L Final BUN Date Value Ref Range Status 10/07/2018 4 (L) 8 - 25 mg/dL Final Creatinine Date Value Ref Range Status 10/07/2018 0.36 (L) 0.60 - 1.10 mg/dL Final Phosphorus, pl Date Value Ref Range Status 10/07/2018 1.7 (L) 2.3 - 4.5 mg/dL Final Albumin Date Value Ref Range Status 10/07/2018 3.6 3.5 - 5.0 g/dL Final Magnesium Date Value Ref Range Status 10/04/2018 1.9 1.6 - 2.4 mg/dL Final Calcium Date Value Ref Range Status 10/07/2018 8.3 (L) 8.5 - 10.3 mg/dL Final Lab Results Component Value Date HGBA1C 9.4 (H) 10/05/2018 POC Glucose: Results for KARINA MENJIAVR ( ) as of 10/07/2018 08:58 Ref. Range 10/06/2018 20:41 10/06/2018 21:34 10/07/2018 01:39 10/07/2018 04:26 10/07/2018 07:31 Glucose Latest Ref Range: 70 - 199 mg/dL 235 (H) Glucose, POC, bld Latest Ref Range: 71 - 98 mg/dL 193 (H) 153 (H) 236 (H) 239 (H) Nursing Assessment: Bowel Sounds (All Quadrants): Active Emesis Assessment Emesis Color/Appearance: Green, Brown Teodoro Scale Score: 19 Skin Integrity: Intact Nutrition Follow-Up : 10/10/18 Nutrition Diagnosis 1: Inadequate energy intake Related to: Nausea, Vomiting Evidenced by: Physicalfinding Interventions: Meals and snacks, [place] diet preferences within the limits of nutrition care order Monitoring and Evaluation: Labs, PO intake ?? Goals: Advance to oral intake as medically able No diet order seen. Nutritional Risk: high Follow up date: 10/10/[address],LDN * Jazmin Tate, [facility] - 10/07/2018 6:25 AM CDT Electrolyte monitoring performed by pharmacy on labs from 10/07 8464 (date & time), Na+=133 K+=3.7 Mg+=no results Phos=1.7 Sodium Phosphate 0.4 mmol/kg (25.23 mmol) IVPB x 1 dose today (pt is not eating, no PO meds) replacement ordered. Pharmacy will continue to follow daily. * Felipe Mayo [facility] - 10/06/2018 9:01 PM CDT K level= 3.5 No electrolyte replacement * Ernestine Cisneros MD - 10/06/2018 7:54 PM CDT General Medicine Daily Progress SUBJECTIVE Originally presented with Chief complaint of multiple episode of nonbloody vomiting, abdominal cramping Interval History: Patient is lying in the bed. Patient states her nausea and vomiting is better today. Patient states she is feeling 50% better OBJECTIVE Vitals: 24hr Min/Max: Temp Min: 36.5 ??C (97.7 ??F) Max: 36.8 ??C (98.3 ??F) Pulse Min: 81 Max: 114 BP Min: 101/68 Max: 151/98 Resp Min: 9 Max: 26 SpO2 Min: 98 % Max: 100 % Most Recent : Vitals: 10/06/18 1800 BP: (!) 146/105 Pulse: 114 Resp: 22 Temp: SpO2: I/O last 2 completed shifts: In: 3652 [P.O.:270; I.V.:3382] Out: 1535 [Urine:1375; Emesis/NG output:160] No intake/output data recorded. Physical Exam: Patient seen and examined Not in acute distress HEENT: AT/NC, Neck supple Heart: S1, S2, RRR Lung: CTA bilateral Abdomen: S, NT, ND, BS+ Neuro: AAO times 3, no focal deficit Ext: No gross lower extremity edema. No calf tenderness Lab/Radiology/Diagnostic Review: Recent Results (from the past 24 hour(s)) POCT glucose Collection Time: 10/05/18 7:59 PM Result Value Ref Range Glucose, POC, bld 129 (H) 71 - 98 mg/dL Basic metabolic panel Collection Time: 10/05/18 8:23 PM Result Value Ref Range Sodium 135 135 - 145 mmol/L Potassium, pl 3.3 3.3 - 4.9 mmol/L Chloride 102 97 - 110 mmol/L CO2 17 (L) 22 - 32 mmol/L Anion Gap 17 (H) 2 - 15 mmol/L BUN 8 8 - 25 mg/dL Creatinine 0.33 (L) 0.60 - 1.10 mg/dL Glucose 161 70 - 199 mg/dL Calcium 8.4 (L) 8.5 - 10.3 mg/dL eGFR Collection Time: 10/05/18 8:23 PM Result Value Ref Range GFR 158 mL/min/1.73 m2 POCT glucose Collection Time: 10/05/18 9:06 PM Result Value Ref Range Glucose, POC, bld 176 (H) 71 - 98 mg/dL POCT glucose Collection Time: 10/05/18 10:06 PM Result Value Ref Range Glucose, POC, bld 179 (H) 71 - 98 mg/dL POCT glucose Collection Time: 10/05/18 11:11 PM Result Value Ref Range Glucose, POC, bld 204 (H) 71 - 98 mg/dL POCT glucose Collection Time: 10/06/18 12:15 AM Result Value Ref Range Glucose, POC, bld 143 (H) 71 - 98 mg/dL Basic metabolic panel Collection Time: 10/06/18 12:36 AM Result Value Ref Range Sodium 132 (L) 135 - 145 mmol/L Potassium, pl 2.8 (Critical) 3.3 - 4.9 mmol/L Chloride 99 97 - 110 mmol/L CO2 18 (L) 22 - 32 mmol/L Anion Gap 15 2 - 15 mmol/L BUN 6 (L) 8 - 25 mg/dL Creatinine 0.36 (L) 0.60 - 1.10 mg/dL Glucose 164 70 - 199 mg/dL Calcium 8.7 8.5 - 10.3 mg/dL eGFR Collection Time: 10/06/18 12:36 AM Result Value Ref Range GFR 153 mL/min/1.73 m2 POCT glucose Collection Time: 10/06/18 1:20 AM Result Value Ref Range Glucose, POC, bld 140 (H) 71 - 98 mg/dL POCT glucose Collection Time: 10/06/18 2:23 AM Result Value Ref Range Glucose, POC, bld 113 (H) 71 - 98 mg/dL POCT glucose Collection Time: 10/06/18 3:25 AM Result Value Ref Range Glucose, POC, bld 157 (H) 71 - 98 mg/dL Basic metabolic panel Collection Time: 10/06/18 4:28 AM Result Value Ref Range Sodium 134 (L) 135 - 145 mmol/L Potassium, pl 3.3 3.3 - 4.9 mmol/L Chloride 101 97 - 110 mmol/L CO2 15 (L) 22 - 32 mmol/L Anion Gap 18 (H) 2 - 15 mmol/L BUN 6 (L) 8 - 25 mg/dL Creatinine 0.35 (L) 0.60 - 1.10 mg/dL Glucose 224 (H) 70 - 199 mg/dL Calcium 8.2 (L) 8.5 - 10.3 mg/dL POCT glucose Collection Time: 10/06/18 4:28 AM Result Value Ref Range Glucose, POC, bld 196 (H) 71 - 98 mg/dL eGFR Collection Time: 10/06/18 4:28 AM Result Value Ref Range GFR 154 mL/min/1.73 m2 POCT glucose Collection Time: 10/06/18 5:29 AM Result Value Ref Range Glucose, POC, bld 160 (H) 71 - 98 mg/dL POCT glucose Collection Time: 10/06/18 6:31 AM Result Value Ref Range Glucose, POC, bld 143 (H) 71 - 98 mg/dL POCT glucose Collection Time: 10/06/18 7:40 AM Result Value Ref Range Glucose, POC, bld 133 (H) 71 - 98 mg/dL Basic metabolic panel Collection Time: 10/06/18 8:18 AM Result Value Ref Range Sodium 134 (L) 135 - 145 mmol/L Potassium, pl 3.2 (L) 3.3 - 4.9 mmol/L Chloride 101 97 - 110 mmol/L CO2 19 (L) 22 - 32 mmol/L Anion Gap 14 2 - 15 mmol/L BUN 5 (L) 8 - 25 mg/dL Creatinine 0.27 (L) 0.60 - 1.10 mg/dL Glucose 168 70 - 199 mg/dL Calcium 8.2 (L) 8.5 - 10.3 mg/dL eGFR Collection Time: 10/06/18 8:18 AM Result Value Ref Range GFR 168 mL/min/1.73 m2 POCT glucose Collection Time: 10/06/18 8:50 AM Result Value Ref Range Glucose, POC, bld 141 (H) 71 - 98 mg/dL POCT glucose Collection Time: 10/06/18 9:53 AM Result Value Ref Range Glucose, POC, bld 139 (H) 71 - 98 mg/dL POCT glucose Collection Time: 10/06/18 10:54 AM Result Value Ref Range Glucose, POC, bld 140 (H) 71 - 98 mg/dL POCT glucose Collection Time: 10/06/18 12:50 PM Result Value Ref Range Glucose, POC, bld 153 (H) 71 - 98 mg/dL Basic metabolic panel Collection Time: 10/06/18 1:02 PM Result Value Ref Range Sodium 134 (L) 135 - 145 mmol/L Potassium, pl 3.1 (L) 3.3 - 4.9 mmol/L Chloride 101 97 - 110 mmol/L CO2 19 (L) 22 - 32 mmol/L Anion Gap 14 2 - 15 mmol/L BUN 5 (L) 8 - 25 mg/dL Creatinine 0.35 (L) 0.60 - 1.10 mg/dL Glucose 179 70 - 199 mg/dL Calcium 8.2 (L) 8.5 - 10.3 mg/dL eGFR Collection Time: 10/06/18 1:02 PM Result Value Ref Range GFR 154 mL/min/1.73 m2 POCT glucose Collection Time: 10/06/18 2:24 PM Result Value Ref Range Glucose, POC, bld 129 (H) 71 - 98 mg/dL Basic metabolic panel Collection Time: 10/06/18 3:53 PM Result Value Ref Range Sodium 133 (L) 135 - 145 mmol/L Potassium, pl 3.6 3.3 - 4.9 mmol/L Chloride 99 97 - 110 mmol/L CO2 18 (L) 22 - 32 mmol/L Anion Gap 16 (H) 2 - 15 mmol/L BUN 4 (L) 8 - 25 mg/dL Creatinine 0.30 (L) 0.60 - 1.10 mg/dL Glucose 189 70 - 199 mg/dL Calcium 8.2 (L) 8.5 - 10.3 mg/dL eGFR Collection Time: 10/06/18 3:53 PM Result Value Ref Range GFR 163 mL/min/1.73 m2 POCT glucose Collection Time: 10/06/18 4:35 PM Result Value Ref Range Glucose, POC, bld 166 (H) 71 - 98 mg/dL POCT glucose Collection Time: 10/06/18 5:43 PM Result Value Ref Range Glucose, POC, bld 167 (H) 71 - 98 mg/dL POCT glucose Collection Time: 10/06/18 6:42 PM Result Value Ref Range Glucose, POC, bld 183 (H) 71 - 98 mg/dL No results found. ASSESSMENT/PLAN 1. DKA Patient has history of diabetes type 1. Anion gap still elevated. Continue with insulin drip, IV fluids per DKA protocol Hemoglobin A1c 9.4 Patient evaluated by family educator 2. Patient evaluated by OBGYN Dr. Christine-recommends to follow up with [facility] for high risk . 3. DVT/GI prophylaxis Full code Voice recognition software [employer] was used dictate and transcribe this document. Hydroelectric Plant Technician variances may occur. Despite proofreading, typographical errors may occur. * Pascual Espinal [facility] - 10/06/2018 12:31 PM CDT Electrolyte monitoring performed by pharmacy on labs from 10/06/18 08;18, Na+=134 K= 3.2 Potassium chloride 40 meq X 1 dose per pharmacy electrolyte replacement protocol for potassium +=3.2 on 10/06/18 (08:18) +=3.2 replacement ordered. Pharmacy will continue to follow daily. * Felipe Mayo [facility] - 10/05/2018 8:14 PM CDT Electrolyte monitoring 10/05 at 1900 Na= 134 K = 3.6 No replacement ordered * Ernestine Cisneros MD - 10/05/2018 7:47 PM CDT General Medicine Daily Progress SUBJECTIVE Originally presented with Chief complaint of multiple episode of nonbloody vomiting, abdominal cramping Interval History: Patient is lying in the bed. Patient states her nausea and vomiting is better today. OBJECTIVE Vitals: 24hr Min/Max: Temp Min: 36.8 ??C (98.2 ??F) Max: 37 ??C (98.6 ??F) Pulse Min: 95 Max: 127 BP Min: 99/55 Max: 148/95 Resp Min: 10 Max: 28 SpO2 Min: 98 % Max: 100 % Most Recent : Vitals: 10/05/18 1800 BP: 141/99 Pulse: 95 Resp: 13 Temp: SpO2: 100% I/O last 2 completed shifts: In: 2997 [I.V.:2997] Out: 1475 [Urine:1475] No intake/output data recorded. Physical Exam: Patient seen and examined Not in acute distress HEENT: AT/NC, Neck supple Heart: S1, S2, RRR Lung: CTA bilateral Abdomen: S, NT, ND, BS+ Neuro: AAO times 3, no focal deficit Ext: No gross lower extremity edema. No calf tenderness Lab/Radiology/Diagnostic Review: Recent Results (from the past 24 hour(s)) POCT glucose Collection Time: 10/04/18 7:58 PM Result Value Ref Range Glucose, POC, bld 148 (H) 71 - 98 mg/dL Basic metabolic panel Collection Time: 10/04/18 8:39 PM Result Value Ref Range Sodium 134 (L) 135 - 145 mmol/L Potassium, pl 3.0 (Critical) 3.3 - 4.9 mmol/L Chloride 101 97 - 110 mmol/L CO2 15 (L) 22 - 32 mmol/L Anion Gap 18 (H) 2 - 15 mmol/L BUN 15 8 - 25 mg/dL Creatinine 0.45 (L) 0.60 - 1.10 mg/dL Glucose 173 70 - 199 mg/dL Calcium 8.6 8.5 - 10.3 mg/dL Magnesium Collection Time: 10/04/18 8:39 PM Result Value Ref Range Magnesium 1.9 1.6 - 2.4 mg/dL Phosphorus Collection Time: 10/04/18 8:39 PM Result Value Ref Range Phosphorus, pl 2.2 (L) 2.3 - 4.5 mg/dL eGFR Collection Time: 10/04/18 8:39 PM Result Value Ref Range GFR 142 mL/min/1.73 m2 POCT glucose Collection Time: 10/04/18 8:57 PM Result Value Ref Range Glucose, POC, bld 173 (H) 71 - 98 mg/dL POCT glucose Collection Time: 10/04/18 10:05 PM Result Value Ref Range Glucose, POC, bld 126 (H) 71 - 98 mg/dL POCT glucose Collection Time: 10/04/18 11:03 PM Result Value Ref Range Glucose, POC, bld 130 (H) 71 - 98 mg/dL POCT glucose Collection Time: 10/05/18 12:06 AM Result Value Ref Range Glucose, POC, bld 163 (H) 71 - 98 mg/dL Basic metabolic panel Collection Time: 10/05/18 12:12 AM Result Value Ref Range Sodium 135 135 - 145 mmol/L Potassium, pl 3.4 3.3 - 4.9 mmol/L Chloride 102 97 - 110 mmol/L CO2 15 (L) 22 - 32 mmol/L Anion Gap 18 (H) 2 - 15 mmol/L BUN 15 8 - 25 mg/dL Creatinine 0.41 (L) 0.60 - 1.10 mg/dL Glucose 200 (H) 70 - 199 mg/dL Calcium 8.5 8.5 - 10.3 mg/dL eGFR Collection Time: 10/05/18 12:12 AM Result Value Ref Range GFR 147 mL/min/1.73 m2 POCT glucose Collection Time: 10/05/18 1:07 AM Result Value Ref Range Glucose, POC, bld 209 (H) 71 - 98 mg/dL POCT glucose Collection Time: 10/05/18 1:57 AM Result Value Ref Range Glucose, POC, bld 184 (H) 71 - 98 mg/dL POCT glucose Collection Time: 10/05/18 3:00 AM Result Value Ref Range Glucose, POC, bld 158 (H) 71 - 98 mg/dL POCT glucose Collection Time: 10/05/18 4:00 AM Result Value Ref Range Glucose, POC, bld 131 (H) 71 - 98 mg/dL Hemoglobin A1c Collection Time: 10/05/18 4:06 AM Result Value Ref Range Hgb A1C 9.4 (H) 4.0 - 5.6 % Estimated Average Glucose 223 mg/dL Basic metabolic panel Collection Time: 10/05/18 4:06 AM Result Value Ref Range Sodium 138 135 - 145 mmol/L Potassium, pl 3.4 3.3 - 4.9 mmol/L Chloride 109 97 - 110 mmol/L CO2 17 (L) 22 - 32 mmol/L Anion Gap 13 2 - 15 mmol/L BUN 14 8 - 25 mg/dL Creatinine 0.30 (L) 0.60 - 1.10 mg/dL Glucose 143 70 - 199 mg/dL Calcium 8.0 (L) 8.5 - 10.3 mg/dL eGFR Collection Time: 10/05/18 4:06 AM Result Value Ref Range GFR 163 mL/min/1.73 m2 POCT glucose Collection Time: 10/05/18 5:04 AM Result Value Ref Range Glucose, POC, bld 119 (H) 71 - 98 mg/dL POCT glucose Collection Time: 10/05/18 5:51 AM Result Value Ref Range Glucose, POC, bld 121 (H) 71 - 98 mg/dL POCT glucose Collection Time: 10/05/18 6:44 AM Result Value Ref Range Glucose, POC, bld 164 (H) 71 - 98 mg/dL POCT glucose Collection Time: 10/05/18 7:59 AM Result Value Ref Range Glucose, POC, bld 252 (H) 71 - 98 mg/dL POCT glucose Collection Time: 10/05/18 9:05 AM Result Value Ref Range Glucose, POC, bld 189 (H) 71 - 98 mg/dL Basic metabolic panel Collection Time: 10/05/18 9:06 AM Result Value Ref Range Sodium 132 (L) 135 - 145 mmol/L Potassium, pl 3.3 3.3 - 4.9 mmol/L Chloride 103 97 - 110 mmol/L CO2 16 (L) 22 - 32 mmol/L Anion Gap 13 2 - 15 mmol/L BUN 10 8 - 25 mg/dL Creatinine 0.37 (L) 0.60 - 1.10 mg/dL Glucose 222 (H) 70 - 199 mg/dL Calcium 8.0 (L) 8.5 - 10.3 mg/dL eGFR Collection Time: 10/05/18 9:06 AM Result Value Ref Range GFR 152 mL/min/1.73 m2 POCT glucose Collection Time: 10/05/18 10:11 AM Result Value Ref Range Glucose, POC, bld 154 (H) 71 - 98 mg/dL POCT glucose Collection Time: 10/05/18 11:47 AM Result Value Ref Range Glucose, POC, bld 95 71 - 98 mg/dL POCT glucose Collection Time: 10/05/18 12:52 PM Result Value Ref Range Glucose, POC, bld 129 (H) 71 - 98 mg/dL Basic metabolic panel Collection Time: 10/05/18 1:12 PM Result Value Ref Range Sodium 137 135 - 145 mmol/L Potassium, pl 3.5 3.3 - 4.9 mmol/L Chloride 105 97 - 110 mmol/L CO2 16 (L) 22 - 32 mmol/L Anion Gap 16 (H) 2 - 15 mmol/L BUN 10 8 - 25 mg/dL Creatinine 0.30 (L) 0.60 - 1.10 mg/dL Glucose 162 70 - 199 mg/dL Calcium 8.0 (L) 8.5 - 10.3 mg/dL eGFR Collection Time: 10/05/18 1:12 PM Result Value Ref Range GFR 163 mL/min/1.73 m2 POCT glucose Collection Time: 10/05/18 1:55 PM Result Value Ref Range Glucose, POC, bld 182 (H) 71 - 98 mg/dL POCT glucose Collection Time: 10/05/18 3:39 PM Result Value Ref Range Glucose, POC, bld 138 (H) 71 - 98 mg/dL Basic metabolic panel Collection Time: 10/05/18 4:16 PM Result Value Ref Range Sodium 134 (L) 135 - 145 mmol/L Potassium, pl 3.6 3.3 - 4.9 mmol/L Chloride 104 97 - 110 mmol/L CO2 14 (L) 22 - 32 mmol/L Anion Gap 17 (H) 2 - 15 mmol/L BUN 9 8 - 25 mg/dL Creatinine 0.26 (L) 0.60 - 1.10 mg/dL Glucose 164 70 - 199 mg/dL Calcium 8.3 (L) 8.5 - 10.3 mg/dL eGFR Collection Time: 10/05/18 4:16 PM Result Value Ref Range GFR 170 mL/min/1.73 m2 POCT glucose Collection Time: 10/05/18 5:04 PM Result Value Ref Range Glucose, POC, bld 133 (H) 71 - 98 mg/dL POCT glucose Collection Time: 10/05/18 6:02 PM Result Value Ref Range Glucose, POC, bld 180 (H) 71 - 98 mg/dL POCT glucose Collection Time: 10/05/18 7:02 PM Result Value Ref Range Glucose, POC, bld 135 (H) 71 - 98 mg/dL No results found. ASSESSMENT/PLAN 1. DKA Patient has history of diabetes type 1. Anion gap still elevated. Continue with insulin drip, IV fluids per DKA protocol Hemoglobin A1c 9.4 Patient evaluated by family educator 2. Patient evaluated by OBGYN Dr. Christine-recommends to follow up with [facility] for high risk . 3. DVT/GI prophylaxis Full code Voice recognition software [employer] Direct was used dictate and transcribe this document. Hydroelectric Plant Technician variances may occur. Despite proofreading, typographical errors may occur. * Lucinda Woodward, RD - 10/05/2018 12:29 PM CDT [facility] Nutrition Assessment NAME:Karina Menjivar :1995 AGE:23 y.o. SEX: female ADMISSION DATE:10/04/2018, CURRENT LOS is 1 days. ENCOUNTER DATE: 10/05/18 12:30 PM REASON for ASSESSMENT: Screened at Nutrition Risk and Initial Nutrition Assessment DX: VOMITING AND DIARRHEA Nutrition Screen What diet do you follow at home?: Diebtic Have You Recently Lost Weight Without Trying?: No Poor Oral Intake for Four or More Days Prior to Admission: No Current diet order: NPO Diet Sips with meds Pt intake is inadequate. PO intakes: NPO 10/04. ALLERGIES: Patient has no known allergies. ASPEN Malnutrition Assessment: Nutrition Focused Physical Exam Notes: Nutrition Needs Calculations: Calculated Energy Needs Using Equations Weight Used for Equation Calculations (RD Determined): 62.9 kg (138 lb 10.7 oz) Weight: 62.9 kg (138 lb 10.7 oz) Height: 154.9 cm (5' 0.98 ) Marco A Savage Equation (Overweight or Obese Patients): 1326 Equation Chosen to Use by RD: Bernardo Bliss Activity Factor: 1.2 Total Energy Needs: 1591.2 kcal Temp: 36.8 ??C (98.2 ??F) Total Energy Needs + Fever Factor: 1591.2 Estimated Protein Needs Type of Weight Used for Estimated Protein : Current Protein Needs Based on g/k.0 Total Protein Estimated Needs (gm): 62.9 Kcal/kg Type of Weight Used for Estimated Kcals: Current Kcal/k Total Kcal/kg Estimated Needs : 1698.3 Estimated Fluid Needs Type of Weight Used for Estimated Fluid Needs: Current Fluid Needs Based on : 30 ml/kg Total Fluid Estimated Needs: 1887 Estimated Carbohydrate Needs Type of Weight Used for Estimated Carbohydrate Needs: Current Recommended Carbohydrates for Breakfast (gm) : 30 Recommended Carbohydrates for Lunch (gm) : 60 Recommended Carbohydrates for Dinner (gm) : 60 Recommended Carbohydrates for HS Snack (gm) : 30 Total Daily Carbohydrates Recommended (gm): 180 Estimated needs: ?? Total Kcal/kg Estimated Needs : 1698.3 based on Kcal/k. Type of Weight Used for Estimated Kcals: Current ?? [facility] Total Energy Needs: 1591.2 kcal using ?? [place] State Total Energy Needs + Fever Factor: 1591.2 ?? Total Protein Estimated Needs (gm): 62.9 Protein Needs Based on g/k.0 Type of Weight Used for Estimated Protein : Current. ?? Total Fluid Estimated Needs: 1887 Fluid Needs Based on : 30 ml/kg. Objective Anthropometrics Weight: 62.9 kg (138 lb 10.7 oz) Admission Weight : 134.8 kg Weight Change: 0.80 kg (1.76 lbs) IBW/kg (Calculated) : 47.6 kg Height: 154.9 cm (5' 0.98 ) Weight in (lb) to have BMI = 25: 132 BMI (Calculated): 26.2 3 Day I/O Summary 10/03 1899 - 10/05 0659 In: 3389 [I.V.:2389] Out: 1800 [Urine:1800] Temp: 36.8 ??C (98.2 ??F) [place] body weight: 47.8 kg (105 lb 4.8 oz) Adjusted ideal body weight: 53.8 kg (118 lb 10.4 oz) Past Medical History: Diagnosis Date ??? Depression ??? Diabetes mellitus (CMS/HCC) ??? HX OTHER MEDICAL 2011 Diabetes mellitus, type 1 Medications and Lab Review: Scheduled Meds: enoxaparin 40 mg subcutaneous Daily-2100 famotidine 20 mg intravenous Daily Continuous Infusions: dextrose 5% and sodium chloride 0.45% 100 mL/hr Last Rate: 100 mL/hr (10/05/18 0952) insulin regular 0-30 Units/hr Last Rate: 0.7 Units/hr (10/05/18 1149) Sodium Date Value Ref Range Status 10/05/2018 132 (L) 135 - 145 mmol/L Final Potassium, pl Date Value Ref Range Status 10/05/2018 3.3 3.3 - 4.9 mmol/L Final BUN Date Value Ref Range Status 10/05/2018 10 8 - 25 mg/dL Final Creatinine Date Value Ref Range Status 10/05/2018 0.37 (L) 0.60 - 1.10 mg/dL Final Phosphorus, pl Date Value Ref Range Status 10/04/2018 2.2 (L) 2.3 - 4.5 mg/dL Final Albumin Date Value Ref Range Status 10/04/2018 3.8 3.5 - 5.0 g/dL Final Magnesium Date Value Ref Range Status 10/04/2018 1.9 1.6 - 2.4 mg/dL Final Calcium Date Value Ref Range Status 10/05/2018 8.0 (L) 8.5 - 10.3 mg/dL Final Lab Results Component Value Date HGBA1C 9.4 (H) 10/05/2018 POC Glucose:95(6/5) Nursing Assessment: Bowel Sounds (All Quadrants): Active Teodoro Scale Score: 19 Skin Integrity: Intact Nutrition Follow-Up : 10/07/18 Nutrition Diagnosis 1: Inadequate energy intake Related to: Nausea, Vomiting Evidenced by: Physicalfinding ?? Interventions: Meals and snacks, [place] diet preferences within the limits of nutrition care order ?? Monitoring and Evaluation: Labs, PO intake ?? Goals: Advance to oral intake as medically able ? Pt c/o nausea, refusing antiemetics saying they don't help. ? Increased needs d/t . ?? Nutritional Risk: high Follow up date: 10/07/[address],LDN * Yolette Whyte RN - 10/05/2018 10:52 AM CDT Karina Menjivar [id number] Ayana Prado MD Pre-Education Assessment Visit Type: Initial Introduction: ID verified, Alert/ oriented x 4 Provider: Medical/Dining Car Steward/PCP(see Carrie Joseph. ) Treatment Prior To Admission: Insulin Knowledge Base: Experienced(has had T1dm for 9 years) Hemaglobin A1c: Knows value Home Testing: Hardly ever Adherence To: Insulin regimen, Misses 1-2 times per week Exercise Habits: Active Hypoglycemia: Hardly ever Home Supplies: No assistance needed Diabetes Management Education Provided: Please see the Patient Education Activity Laying in bed with eyes closed. Opens eyes to look at speaker but then closes eyes again. Does not answer most questions, but did answer a few. has a 2yr. Old who weighed 7 lbs at delivery. [facility] blood sugars were fine with previous . According to EMR she was cared for in [place], [place]. Continues with nausea, refusing Zofran. States, it does not help. Blood sugars are higher than recommended range for . On insulin drip continues. Yolette Whyte RN, Steam Fitter Supervisor Maintenance 10/05/2018 10:53 AM * Sarita Petty RN - 10/04/2018 9:00 AM CDT 10/04/18 0900 Basic Mobility - 6 Click How much [...] 4 Total Score (range 6-24) 24 * Sarita Petty RN - 10/04/2018 9:00 AM CDT 10/04/18 0900 Discharge Planning Type of Residence Private residence Living Arrangements Family members Patient expects to be discharged to: Private residence (DC plan discussed wtih patient. Goal is to return home-lives with gma. 6 click=24. Independent. Barrier to dc is resolution of high blood sugar. No new needs anticipated at this time.) Does the patient need discharge transport arranged? No * Jazmin Tate, [facility] - 10/04/2018 8:55 AM CDT Electrolyte monitoring performed by pharmacy on labs from 10/04 324 (date & time), Na+=137 K+=3.9 Mg+ and Phos=no results at this time No replacement ordered. Pharmacy will continue to follow daily. An order to initiate electrolyte repletion by pharmacy has been received from Dr. Cisneros. IV or PO repletion will be ordered [...] oral medications, administer magnesium oxide 400 mg TID x 3 doses. If magnesium level is <1.0, or 1.0 -1.5 and patient is NPO, administer 2 grams magnesium sulfateIVPB over 2 hours. If phosphorus level is 1.9 - 2.5 administer sodium/potassium phosphate 1 tab orally or 1 powder packet orally/per tube TID x 3 doses. [Tab contains 1.1 mEq K, 13 mEq Na, 8 mmol phos, Packet contains 7.1 mEq K, 6.9 mEq Na, 8 mmol phos] If potassium is < 3.5 use powder packet. If potassium is < 3.3 use powder packet and also replace with potassium chloride 20 mEq. If phosphorous level is 1.1 - 1.8 administer sodium/potassium phosphate 2 tabs orally or 2 powder packets orally/per tube TID x 3 doses. If potassium is < 3.5 use powder packet. If phosphorous level is 1 or less, , (or 2.5 or less in a TPN patient) and potassium is < 4.5, administer potassium phosphate 0.4 mmol/kg IVPB over 6 hours. Decrease dose by 50% for CrCl < 50. If potassium is 4.5 or greater, administer sodium phosphate (if available) at the same dose as potassium phosphate above Monitoring Guidelines: TPN Patients: Renal panel daily x3 days, then every other day. All other patients: Electrolyte levels will be ordered by providers as needed. * Pascual Espinal [facility] - 10/04/2018 5:43 AM CDT Dose of enoxaparin adjusted per protocol for bariatric VTE prophylaxis, CrCl > 30 ml/min, BMI>40, and weight >100 kg (ZpEx=768.7 ml/min, BMI=56.15 kg/m2, ry=873.8 kg) documented in this encounter H&P Notes * Ernestine Cisneros MD - 10/04/2018 9:23 AM CDT General Medicine History and Physical Date Of Service: 10/04/2018 Primary Care Physician: Carrie Joseph, [phone] SUBJECTIVE Patient is a 23 y.o. female with chief complaint of multiple episode of nonbloody vomiting, abdominal cramping. HPI: 23-year-old female came in for multiple episode of nonbloody vomiting started on day of presentation. Patient also reports 1 episode of loose stool and abdominal cramping. Upon presentation in emergency room patient noted to be in DKA. Patient admitted for further care. Patient is . Last menstrual period August 06, 2018 per patient. PMH Diabetes type 1 PSH Tonsillectomy, SH Patient denies smoking, recreational drug use. Patient reports social alcohol use Medications Prior to Admission Medication Sig Dispense Refill Last Dose ??? insulin glargine (BASAGLAR KWIKPEN U-100 INSULIN) 100 unit/mL (3 mL) insulin pen Inject 10 Units under the skin nightly 10/03/2018 at Unknown time ??? insulin lispro (HumaLOG) 100 unit/mL injection Inject 1 Units under the skin 3 (three) times a day before meals. Carb ratio 1 unit of humalog per 8 carbs with meals. 10/03/2018 at Unknown time ??? metoclopramide (REGLAN) 5 mg tablet Take 1 tablet (5 mg total) by mouth 4 (four) times a day. 30 tablet 0 10/03/2018 at Unknown time ??? ondansetron (ZOFRAN) 4 mg tablet Take 1 tablet (4 mg total) by mouth every 8 (eight) hours as needed for nausea or vomiting. 20 tablet 0 10/03/2018 at Unknown time No Known Allergies Family History Problem Relation Age of Onset ??? No Known Problems Mother ??? Autism Brother Review of Systems Positive for multiple episode of nonbloody vomiting, abdominal cramping. Positive for 1 episode of loose stool prior to presentation. Patient denies Chest pain, Shortness of breath, palpitation, Headache, Blurry vision, Fever, Urinary Symptoms, Dizziness, Weakness, Paresthesias, Loss of conciousness OBJECTIVE Vitals: Arrival Vitals Temp 10/04/18 0259 36 ??C (96.8 ??F) Pulse 10/04/18 0259 113 Resp 10/04/18 0259 18 BP 10/04/18 0259 126/94 SpO2 10/04/18 025 98 % Temp src 10/04/18 0259 Temporal Heart Rate Source -- Patient Position 10/04/18 0805 Lying BP Location 10/04/18 0536 Right arm FiO2 (%) -- 24hr Min/Max: Temp Min: 36 ??C (96.8 ??F) Max: 36.7 ??C (98 ??F) Pulse Min: 104 Max: 116 BP Min: 126/94 Max: 146/79 Resp Min: 16 Max: 18 SpO2 Min: 97 % Max: 100 % Most Recent : Vitals: 10/04/18 0805 BP: 146/79 Pulse: 111 Resp: 16 Temp: 36.7 ??C (98 ??F) SpO2: 100% I/O last 2 completed shifts: In: 1000 [IV Piggyback:1000] Out: - No intake/output data recorded. Physical exam: Patient seen and examined Not in acute distress HEENT: AT/NC, Neck supple Heart: S1, S2, RRR Lung: CTA bilateral Abdomen: S, NT, ND, BS+ Neuro: AAO times 3, no focal deficit Ext: No gross lower extremity edema. No calf tenderness Lab/Radiology/Diagnostic Review: Recent Results (from the past 24 hour(s)) Blood gas, arterial Collection Time: 10/04/18 3:06 AM Result Value Ref Range pH, Art POC 7.43 7.35 - 7.45 PCO2, Arterial 26 (L) 35 - 45 mmHg PO2, Arterial 121 (H) 83 - 108 mmHg HCO3 Art (Calculated) 17 (L) 20 - 30 mmol/L BE, art -6 mmol/L O2 Sat Art (Measured) 99 (H) 90 - 95 % hCG, blood, quantitative Collection Time: 10/04/18 3:25 AM Result Value Ref Range hCG, quant 1,694.0 (H) 0.0 - 5.0 IUnits/L CBC with auto differential Collection Time: 10/04/18 3:25 AM Result Value Ref Range WBC 9.6 3.8 - 9.9 K/cumm Hgb 14.5 11.9 - 15.5 g/dL Hct 41.7 35.6 - 45.5 % Plt 341 150 - 400 K/cumm MPV 9.3 9.1 - 12.3 fL RBC 5.13 3.90 - 5.20 M/cumm MCV 81.3 81.3 - 96.4 fL MCH 28.3 27.1 - 33.3 pg MCHC 34.8 32.3 - 35.7 g/dL RDW CV 14.6 11.1 - 14.9 % RDW SD 43.2 35.7 - 48.1 fL NRBC Abs 0.00 0.00 - 0.01 K/cumm Comprehensive metabolic panel Collection Time: 10/04/18 3:25 AM Result Value Ref Range Sodium 137 135 - 145 mmol/L Potassium, pl 3.9 3.3 - 4.9 mmol/L Chloride 98 97 - 110 mmol/L CO2 17 (L) 22 - 32 mmol/L Anion Gap 22 (H) 2 - 15 mmol/L BUN 18 8 - 25 mg/dL Creatinine 0.48 (L) 0.60 - 1.10 mg/dL Glucose 417 (H) 70 - 199 mg/dL Calcium 8.8 8.5 - 10.3 mg/dL Bilirubin, total 0.6 0.1 - 1.2 mg/dL Protein, pl 6.8 6.5 - 8.5 g/dL Albumin 3.8 3.5 - 5.0 g/dL Alk phos 86 40 - 130 Units/L ALT 12 7 - 45 Units/L AST 12 10 - 45 Units/L Lipase Collection Time: 10/04/18 3:25 AM Result Value Ref Range Lipase 11 10 - 99 Units/L Differential, auto Collection Time: 10/04/18 3:25 AM Result Value Ref Range Neutrophil absolute 8.3 (H) 1.7 - 6.5 K/cumm Immature granulocyte absolute 0.1 0.0 - 0.1 K/cumm Lymphocytes absolute 0.6 (L) 0.8 - 3.3 K/cumm Monocyte absolute 0.7 0.2 - 0.8 K/cumm Eosinophils absolute 0.0 0.0 - 0.5 K/cumm Basophils, abs 0.0 0.0 - 0.1 K/cumm Neutrophils 86.0 % Immature granulocytes 0.7 % Lymphocytes 6.0 % Monocytes 6.9 % Eosinophils 0.1 % Basophils 0.3 % eGFR Collection Time: 10/04/18 3:25 AM Result Value Ref Range GFR 139 mL/min/1.73 m2 Sepsis Lactate w/ Reflex Collection Time: 10/04/18 3:33 AM Result Value Ref Range Sepsis Lactate 3.0 (H) 0.7 - 2.0 mmol/L Urinalysis reflex to microscopic and culture Urine Collection Time: 10/04/18 4:22 AM Result Value Ref Range Color, ur Yellow Yellow Clarity, ur Clear Clear Specific gravity, ur 1.029 (H) 1.010 - 1.025 pH, urine 6.0 Protein, ur ql Negative Negative Glucose, ur ql 3+ (A) Negative Ketones, ur 3+ (A) Negative Bilirubin, ur Negative Negative Blood, ur Negative Negative Urobilinogen, ur 0.2 mg/dL Nitrite, ur Negative Negative Leukocyte esterase, ur Negative Negative Sepsis Lactate w/ Reflex Collection Time: 10/04/18 5:04 AM Result Value Ref Range Sepsis Lactate 2.4 (H) 0.7 - 2.0 mmol/L POCT glucose Collection Time: 10/04/18 8:09 AM Result Value Ref Range Glucose, POC, bld 358 (Critical) 71 - 98 mg/dL Sepsis Lactate w/ Reflex Collection Time: 10/04/18 8:48 AM Result Value Ref Range Sepsis Lactate 2.1 (H) 0.7 - 2.0 mmol/L No results found. ASSESSMENT/PLAN 1. DKA Patient has history of diabetes type 1. Transfer patient to ICU. Start insulin drip, IV fluid. Continue management per DKA protocol health promotion educator consult Check hemoglobin A1c. 2. Per patient her last menstrual period was on August 06, 2018 OBGYN is consulted 3. DVT/GI prophylaxis Full code Estimated Length Of Stay: More than 2 midnight Voice recognition software [employer] Direct was used dictate and transcribe this document. Hydroelectric Plant Technician variances may occur. Despite proofreading, typographical errors may occur. documented in this encounter Consult Notes * Lowell Christine MD - 10/04/2018 11:59 AM CDTAssociated Order(s): IP CONSULT TO METAL MACHINE OPERATOR OB consult 23 y.o. type 1 diabetic admirtted with DKA Is 7 weeks by LMP. This is could be c/w CG of 1694. ( might be slightly earlier than 7 weeks) OB hx: LTCS x 1 , 2 years ago. Induced, pushed 2 hrs then had c/s Seen by maternal medicine in [place] for that Complicated by her diabetes care. Hyperemesis of can also complicate a DKA picture and make her sugars brittle. Zofran 8mg po q 8 regularly would be first line treatment. In April her HGB A1C was just over 9. parameters for blood sugars are fastings <100, and 2 hr post prandials <140 ( so we obviously have a long way to go) Once stabilized, her care would best be handled again by high school admissions representative. [facility]ad[facility] vs NATALIE, [place] has a [facility] as well I believe. Thanks for consult. Let me know if you need anything else. documented in this encounter Nursing Notes * Mann Cantu RN - 10/07/2018 6:34 PM CDT Transferred to [facility] per ambulance. In no distress. MARY Tinajero from ICU accompanied. * Mann Cantu RN - 10/07/2018 4:29 PM CDT Called report to Мария HERNANDEZ at [facility]. documented in this encounter ED Notes * Cori Travis RN - 10/04/2018 2:57 AM CDT Pt to the ED with c/o vomiting for that started last night. Stated that she is but doesn'tknow how far along. She is scheduled to see OBGYN on . * Boubacar Harrison MD - 10/04/2018 2:48 AM CDT HPI No chief complaint on file. Patient is a 23-year-old female, -on known gestation, last menstrual period 2 months ago, type 1 diabetic-does not follow sugars at home, presents emergency room complaining of nausea vomiting and diarrhea which began tonight. No fevers or chills. Intermittent abdominal diffuse cramping. Nourinary symptoms or vaginal bleeding. No respiratory complaints or chest pain. No fevers or chills.No aggravating or alleviating factors. There is no other complaints of further review of symptoms negative Patient History Patient Active Problem List Diagnosis Date Noted ??? Sepsis due to gram-negative UTI ([facility]/HCC) 05/27/2018 ??? Type 1 diabetes mellitus with ketoacidosis without coma (CMS/HCC) ??? Type 1 diabetes mellitus with hyperglycemia (CMS/HCC) ??? Nausea and vomiting 01/02/2018 ??? Dehydration 01/02/2018 ??? Metabolic alkalosis 01/02/2018 ??? Uncontrolled type 1 diabetes mellitus with hyperglycemia (CMS/HCC) 01/02/2018 ??? Ketonuria 01/02/2018 ??? Thrombocytosis (CMS/HCC) 01/02/2018 ??? Diabetic ketoacidosis without coma associated with type 1 diabetes mellitus (CMS/HCC) ??? Gastroenteritis ??? Sinus tachycardia ??? Normocytic anemia Past Medical History: Diagnosis Date ??? Depression ??? Diabetes mellitus (CMS/HCC) ??? HX OTHER MEDICAL 2011 Diabetes mellitus, type 1 Past Surgical History: Procedure Laterality Date ??? ABDOMINAL SURGERY ??? SECTION, CLASSIC 2016 ??? TONSILLECTOMY Bilateral 2002 Family History Problem Relation Age of Onset ??? No Known Problems Mother ??? Autism Brother Social History Tobacco Use ??? Smoking status: Never Smoker ??? Smokeless tobacco: Never Used Substance Use Topics ??? Alcohol use: Yes ??? Drug use: No Social History Social History Narrative ??? Not on file Review of Systems Review of Systems All other systems reviewed and are negative. Physical Exam ED Triage Vitals Temp Pulse Resp BP SpO2 -- -- -- -- -- Temp src Heart Rate Source Patient Position BP Location FiO2 (%) -- -- -- -- -- Physical Exam Constitutional: She is oriented to person, place, and time. She appears well- developed and well-nourished. Actively dry heaving HENT: Head: Normocephalic and atraumatic. Right Ear: External ear normal. Left Ear: External ear normal. Mouth/Throat: Oropharynx is clear and moist. Eyes: Pupils are equal, round, and reactive to light. Conjunctivae and EOM are normal. Neck: Normal range of motion. Neck supple. Cardiovascular: Normal rate, regular rhythm, normal heart sounds and intact distal pulses. No murmur heard. Pulmonary/Chest: Effort normal and breath sounds normal. No respiratory distress. Abdominal: Soft. Bowel sounds are normal. She exhibits no distension. There is no tenderness. Thereis no guarding. Musculoskeletal: Normal range of motion. She exhibits no edema. Neurological: She is alert and oriented to person, place, and time. Skin: Skin is warm and dry. Capillary refill takes less than 2 seconds. Psychiatric: She has a normal mood and affect. Nursing note and vitals reviewed. [facility] ED Course as of Oct 04 454 Time: 10/04 449 Comment: Spoke to the hospitalist, agrees on admission and continue fluids By: Boubacar Harrison MD No diagnosis found. Boubacar Harrison MD 10/04/18454 documented in this encounter Miscellaneous Notes * Plan of Care - Mann Cantu RN - 10/07/2018 2:03 PM CDT Problem: Health Behavior: Goal: Understanding of discharge needs will improve Outcome: Not Progressing Goals: Clinical Goals for the Shift: Sable blood sugar and vital signs. Summary: Feels a little better today. AG increased to 19 from 17. Blood sugar atble. Not much appetite. No emesis. * Plan of Care - Zbigniew Key LCSW - 10/07/2018 12:03 PM CDT (11:57 a.m.) SW went to patient's room to consult with patient regarding DKA and noncompliance withmedications during . Patient was alert and oriented x4. Patient tells this television reporter that the only medications that she is not currently taking are those for nausea and she is not doing so because she is . SW spoke with patient about medications for diabetes and patient reports thatshe is taking her diabetic medications. Patient reports that she lives with her grandmother, has a job, has another child, has running water, electricity, and food. Patient denies any assistance fromsocial services. If this is the final note please consider it the discharge summary. * Plan of Care - Julieth Baugh RN - 10/07/2018 3:23 AM CDT Goals: Clinical Goals for the Shift: Improved labs and improved nausea/vomiting. Maintain stable VS. Problem: Fluid Volume: Goal: Will show no signs and symptoms of electrolyte imbalance 10/07/2018322 by Julieth Baugh RN Outcome: Progressing 10/07/2018318 by Julieth Baugh RN Outcome: Progressing Goal: Ability to achieve a balanced intake and output will improve 10/07/2018322 by Julieth Baugh RN Outcome: Progressing 10/07/2018318 by Julieth Baugh RN Outcome: Progressing Goal: Will maintain adequate fluid volume 10/07/2018322 by Julieth Baugh RN Outcome: Progressing 10/07/2018318 by Julieth Baugh RN Outcome: Progressing Note: Through IVFs, not PO intake Goal: Signs and symptoms of dehydration will decrease Outcome: Progressing Problem: Activity: Goal: Ability to perform activities of daily living will improve Outcome: Progressing Problem: Cardiac: Goal: Ability to maintain an adequate cardiac output will improve Outcome: Progressing Problem: Metabolic: Goal: Ability to maintain appropriate glucose levels will improve Outcome: Progressing Goal: Diagnostic test results will improve Outcome: Progressing Goal: Complications related to the disease process, condition or treatment will be avoided or minimized Outcome: Progressing Problem: Nutritional: Goal: Maintenance of adequate weight for body size and type will improve Outcome: Progressing Problem: Respiratory: Goal: Respiratory status will improve Outcome: Progressing Goal: Ability to maintain adequate ventilation will improve Outcome: Progressing Goal: Peripheral tissue perfusion will improve Outcome: Progressing Problem: Urinary Elimination: Goal: Ability to achieve and maintain adequate renal perfusion and functioning will improve Outcome: Progressing Problem: Health Behavior: Goal: Understanding of discharge needs will improve 10/07/2018322 by Julieth Baugh RN Outcome: Not Progressing 10/07/2018318 by Julieth Baugh RN Outcome: Not Progressing Problem: Fluid Volume: Goal: Maintenance of adequate hydration will improve 10/07/2018 0323 by Julieth Baugh RN Outcome: Not Progressing 10/07/20189 by Julieth Baugh RN Outcome: Not Progressing Problem: Activity: Goal: Will [...] Equipment and the Need for Diabetes Identification [facility] Outcome: Not Progressing Goal: Ability to manage health-related needs will improve Outcome: Not Progressing Goal: Ability to identify and alter actions that are detrimental to health will improve Outcome: Not Progressing Goal: Knowledge of prevention and discharge planning will improve Outcome: Not Progressing Problem: Nutritional: Goal: Maintenance of adequate nutrition will improve Outcome: Not Progressing Summary: Labs improved and insulin gtt D/C'd per orders. Still with some nausea. Refuses anti-emetics. Have encouraged pt to try to drink clear liquids and try saltine crackers as ordered per physician for pt to advance her diet. She has not so far taken anything PO this shift. IVFs continue for hydration and FSBS changed to 5x daily with SSI. Pt sleeps for the majority of thi shift. Has denied c/o pain this shift. * Plan of Care - Nehemiah Chiu RN - 10/06/2018 3:20 PM CDT Problem: Health Behavior: Goal: Understanding of discharge needs will improve Outcome: Progressing Problem: Fluid Volume: Goal: Maintenance of adequate hydration will improve Outcome: Progressing Goal: Will show no signs and symptoms of electrolyte imbalance Outcome: Progressing Goal: Ability to achieve a balanced intake and output will improve Outcome: Progressing Goal: Will maintain adequate fluid volume Outcome: Progressing Goal: Signs and symptoms of dehydration will decrease Outcome: Progressing Problem: Activity: Goal: [...] Equipment and the Need for Diabetes Identification [facility] Outcome: Progressing Goal: Ability to manage health-related needs will improve Outcome: Progressing Goal: Ability to identify and alter actions that are detrimental to health will improve Outcome: Progressing Goal: Knowledge of prevention and discharge planning will improve Outcome: Progressing Problem: Metabolic: Goal: [...] and type will improve Outcome: Progressing Problem: Respiratory: Goal: Respiratory status will improve Outcome: Progressing Goal: Ability to maintain adequate ventilation will improve Outcome: Progressing Goal: Peripheral tissue perfusion will improve Outcome: Progressing Problem: Urinary Elimination: Goal: Ability to achieve and maintain adequate renal perfusion and functioning will improve Outcome: Progressing Goals: Clinical Goals for the Shift: vss. pt to maintain comfort. and safety. pt to improve labs and wean from insulin gtt Summary: pt vss. Pt labs improving. Pt remains on insulin gtt at this time. Pt continues to have poor appetite and nausea and vomiting at times. Pt continues to refuse the majority of her medications. * Plan of Care - Dorian Fuller RN - 10/06/2018 3:18 AM CDT Problem: Health Behavior: Goal: Understanding of discharge needs will improve Outcome: Progressing Problem: Fluid Volume: Goal: Maintenance of adequate hydration will improve Outcome: Not Progressing Goal: Will show no signs and symptoms of electrolyte imbalance Outcome: Not Progressing Goal: Ability to achieve a balanced intake and output will improve Outcome: Not Progressing Goal: Will maintain adequate fluid volume Outcome: Progressing Goal: Signs and symptoms of dehydration will decrease Outcome: Not Progressing Problem: Activity: Goal: Ability [...] Equipment and the Need for Diabetes Identification [facility] Outcome: Progressing Goal: Ability to manage [...] type will improve Outcome: Not Progressing Problem: Respiratory: Goal: Respiratory status will improve Outcome: Progressing Goal: Ability to maintain adequate ventilation will improve Outcome: Progressing Goal: Peripheral tissue perfusion will improve Outcome: Progressing Problem: Urinary Elimination: Goal: Ability to achieve and maintain adequate renal perfusion and functioning will improve Outcome: Progressing Goals: Clinical Goals for the Shift: Monitor and treat blood sugars with insulin drip, Close Anion gap andincrease CO2, decrease Nausea and Vomitting, Summary: Continues to be on insulin drip with anion gap decreasing and CO2 increasing slightly, hashad two episodes of nausea and multiple episodes of dry heaving at the beginning of the shift, continues to refuse lovenox and compazine, * Plan of Care - Audelia Ceballos RN - 10/05/2018 4:44 PM CDT Problem: Fluid Volume: Goal: Signs and symptoms of dehydration will decrease Outcome: Progressing Problem: Cardiac: Goal: Ability to maintain an adequate cardiac output will improve Outcome: Progressing Problem: Metabolic: Goal: Diagnostic test results will improve Outcome: Progressing Goal: Complications related to the disease process, condition or treatment will be avoided or minimized Outcome: Progressing Problem: Nutritional: Goal: Maintenance of adequate weight for body size and type will improve Outcome: Progressing Problem: Respiratory: Goal: Respiratory status will improve Outcome: Progressing Goal: Ability to maintain adequate ventilation will improve Outcome: Progressing Goal: Peripheral tissue perfusion will improve Outcome: Progressing Problem: Urinary Elimination: Goal: Ability to achieve and maintain adequate renal perfusion and functioning will improve Outcome: Progressing Problem: Fluid Volume: Goal: Signs and symptoms of dehydration will decrease Outcome: Progressing Problem: Cardiac: Goal: Ability to maintain an adequate cardiac output will improve Outcome: Progressing Problem: Metabolic: Goal: Diagnostic test results will improve Outcome: Progressing Goal: Complications related to the disease process, condition or treatment will be avoided or minimized Outcome: Progressing Problem: Nutritional: Goal: Maintenance of adequate weight for body size and type will improve Outcome: Progressing Problem: Respiratory: Goal: Respiratory status will improve Outcome: Progressing Goal: Ability to maintain adequate ventilation will improve Outcome: Progressing Goal: Peripheral tissue perfusion will improve Outcome: Progressing Problem: Urinary Elimination: Goal: Ability to achieve and maintain adequate renal perfusion and functioning will improve Outcome: Progressing Goals: Clinical Goals for the Shift: Blood sugars stabilized, VSS, no nausea or vomiting, patient comfort and safety Summary: Patient remains on insulin gtt and ivf. Patient continues to have episodes of nausea and vomiting. Patient refuses any anti-nausea medications. VSS. * Plan of Care - Julieth Baugh RN - 10/05/2018 3:08 AM CDT Goals: Clinical Goals for the Shift: Stabilized blood glucose and chemistry results. Decreased nausea. Maintain comfort and safety. Problem: Health Behavior: Goal: Understanding of discharge needs will improve Outcome: Progressing Problem: Fluid Volume: Goal: Maintenance of adequate hydration will improve Outcome: Progressing Goal: Will maintain adequate fluid volume Outcome: Progressing Goal: Signs and symptoms of dehydration will decrease Outcome: Progressing Problem: Activity: Goal: Will verbalize [...] discharge planning will improve Outcome: Progressing Problem: Metabolic: Goal: Ability to maintain appropriate glucose levels will improve Outcome: Progressing Goal: Diagnostic test results will improve Outcome: Progressing Goal: Complications related to the disease process, condition or treatment will be avoided or minimized Outcome: Progressing Problem: Nutritional: Goal: Maintenance of adequate weight for body size and type will improve Outcome: Progressing Problem: Respiratory: Goal: Respiratory status will improve Outcome: Progressing Goal: Ability to maintain adequate ventilation will improve Outcome: Progressing Goal: Peripheral tissue perfusion will improve Outcome: Progressing Problem: Urinary Elimination: Goal: Ability to achieve and maintain adequate renal perfusion and functioning will improve Outcome: Progressing Problem: Fluid Volume: Goal: Will show no signs and symptoms of electrolyte imbalance Outcome: Not Progressing Goal: Ability to achieve a balanced intake and output will improve Outcome: Not Progressing Problem: Activity: Goal: Ability to perform activities of daily living will improve Outcome: Not Progressing Problem: Nutritional: Goal: Maintenance of adequate nutrition will improve Outcome: Not Progressing Summary: Rn: Remains on insulin gtt and IVFs. Blood sugars improved but Anion gap remains elevated and Co2 remans decreased. Continues to have c/o nausea but refused anti-emetics stating, They don'thelp me . K+ repleted this shift. Continues to have q4h BMPs until pt can be taken off insulin gtt. * Plan of Care - Lior Melendez RN - 10/04/2018 9:12 AM CDT Problem: Health Behavior: Goal: Understanding of discharge needs will improve Outcome: Not Progressing Problem: Fluid Volume: Goal: Maintenance of adequate hydration will improve Outcome: Not Progressing Goal: Will show no signs and symptoms of electrolyte imbalance Outcome: Not Progressing Goals: Clinical Goals for the Shift: Pt blood glucose are wnl and pt free of injury Summary: Pt A/O this morning. Pt blood glucose high this morning, it was 358. MD notified this morning and he wants pt transferred to ICU for insulin drip. Pt not feeling well, she is nauseated. Pt has not had BM yet. Pt going to be transferred to ICU room 2, report called to Mann. * Plan of Care - Mikayla Blancas RN - 10/04/2018 6:06 AM CDT Goals: Clinical Goals for the Shift: IVF. Decreased nausea and vomiting Summary: Patient is A&O x 4. C/o nausea and vomiting. IVF administered per orders. Call light within reach. documented in this encounter Plan of Treatment Not on file documented as of this encounter Procedures Procedure Name Priority Date/Time Associated Diagnosis Comments POCT GLUCOSE DEVICE Routine 10/07/2018 6 :07 PM CDT POCT GLUCOSE DEVICE Routine 10/07/2018 5 :14 PM CDT POCT GLUCOSE DEVICE Routine 10/07/2018 4 :06 PM CDT EGFR Timed 10/07/2018 11:12 AM CDT BASIC METABOLIC PANEL Timed 10/07/2018 11:12 AM CDT POCT GLUCOSE DEVICE Routine 10/07/2018 1 0:50 AM CDT POCT GLUCOSE DEVICE Routine 10/07/2018 7 :31 AM CDT EGFR Routine 10/07/2018 4:26 AM CDT RENAL FUNCTION PANEL Routine 10/07/2018 4:26 AM CDT POCT GLUCOSE DEVICE Routine 10/07/2018 1 :39 AM CDT POCT GLUCOSE DEVICE Routine 10/06/2018 9 :34 PM CDT POCT GLUCOSE DEVICE Routine 10/06/2018 8 :41 PM CDT EGFR Timed 10/06/2018 8:03 PM CDT BASIC METABOLIC PANEL Timed 10/06/2018 8:03 PM CDT POCT GLUCOSE DEVICE Routine 10/06/2018 7 :50 PM CDT POCT GLUCOSE DEVICE Routine 10/06/2018 6 :42 PM CDT POCT GLUCOSE DEVICE Routine 10/06/2018 5 :43 PM CDT POCT GLUCOSE DEVICE Routine 10/06/2018 4 :35 PM CDT EGFR Timed 10/06/2018 3:53 PM CDT BASIC METABOLIC PANEL Timed 10/06/2018 3:53 PM CDT POCT GLUCOSE DEVICE Routine 10/06/2018 2:24 PM CDT EGFR Timed 10/06/2018 1:02 PM CDT BASIC METABOLIC PANEL Timed 10/06/2018 1:02 PM CDT POCT GLUCOSE DEVICE Routine 10/06/2018 1 2:50 PM CDT POCT GLUCOSE DEVICE Routine 10/06/2018 1 0:54 AM CDT POCT GLUCOSE DEVICE Routine 10/06/2018 9 :53 AM CDT POCT GLUCOSE DEVICE Routine 10/06/2018 8 :50 AM CDT EGFR Timed 10/06/2018 8:18 AM CDT BASIC METABOLIC PANEL Timed 10/06/2018 8:18 AM CDT POCT GLUCOSE DEVICE Routine 10/06/2018 7 :40 AM CDT POCT GLUCOSE DEVICE Routine 10/06/2018 6 :31 AM CDT POCT GLUCOSE DEVICE Routine 10/06/2018 5 :29 AM CDT EGFR Timed 10/06/2018 4:28 AM CDT POCT GLUCOSE DEVICE Routine 10/06/2018 4 :28 AM CDT BASIC METABOLIC PANEL Timed 10/06/2018 4:28 AM CDT POCT GLUCOSE DEVICE Routine 10/06/2018 3 :25 AM CDT POCT GLUCOSE DEVICE Routine 10/06/2018 2 :23 AM CDT POCT GLUCOSE DEVICE Routine 10/06/2018 1 :20 AM CDT EGFR Timed 10/06/2018 12:36 AM CDT BASIC METABOLIC PANEL Timed 10/06/2018 12:36 AM CDT POCT GLUCOSE DEVICE Routine 10/06/2018 1 2:15 AM CDT POCT GLUCOSE DEVICE Routine 10/05/2018 1 1:11 PM CDT POCT GLUCOSE DEVICE Routine 10/05/2018 1 0:06 PM CDT POCT GLUCOSE DEVICE Routine 10/05/2018 9 :06 PM CDT EGFR Timed 10/05/2018 8:23 PM CDT BASIC METABOLIC PANEL Timed 10/05/2018 8:23 PM CDT POCT GLUCOSE DEVICE Routine 10/05/2018 7 :59 PM CDT POCT GLUCOSE DEVICE Routine 10/05/2018 7 :02 PM CDT POCT GLUCOSE DEVICE Routine 10/05/2018 6 :02 PM CDT POCT GLUCOSE DEVICE Routine 10/05/2018 5 :04 PM CDT EGFR Timed 10/05/2018 4:16 PM CDT BASIC METABOLIC PANEL Timed 10/05/2018 4:16 PM CDT POCT GLUCOSE DEVICE Routine 10/05/2018 3 :39 PM CDT POCT GLUCOSE DEVICE Routine 10/05/2018 1 :55 PM CDT EGFR Timed 10/05/2018 1:12 PM CDT BASIC METABOLIC PANEL Timed 10/05/2018 1:12 PM CDT POCT GLUCOSE DEVICE Routine 10/05/2018 1 2:52 PM CDT POCT GLUCOSE DEVICE Routine 10/05/2018 1 1:47 AM CDT POCT GLUCOSE DEVICE Routine 10/05/2018 1 0:11 AM CDT EGFR Timed 10/05/2018 9:06 AM CDT BASIC METABOLIC PANEL Timed 10/05/2018 9:06 AM CDT POCT GLUCOSE DEVICE Routine 10/05/2018 9 :05 AM CDT POCT GLUCOSE DEVICE Routine 10/05/2018 7 :59 AM CDT POCT GLUCOSE DEVICE Routine 10/05/2018 6 :44 AM CDT POCT GLUCOSE DEVICE Routine 10/05/2018 5 :51 AM CDT POCT GLUCOSE DEVICE Routine 10/05/2018 5 :04 AM CDT EGFR Timed 10/05/2018 4:06 AM CDT HEMOGLOBIN A1C Routine 10/05/2018 4:06 AM CDT BASIC METABOLIC PANEL Timed 10/05/2018 4:06 AM CDT POCT GLUCOSE DEVICE Routine 10/05/2018 4 :00 AM CDT POCT GLUCOSE DEVICE Routine 10/05/2018 3 :00 AM CDT POCT GLUCOSE DEVICE Routine 10/05/2018 1 :57 AM CDT POCT GLUCOSE DEVICE Routine 10/05/2018 1 :07 AM CDT EGFR Timed 10/05/2018 12:12 AM CDT BASIC METABOLIC PANEL Timed 10/05/2018 12:12 AM CDT POCT GLUCOSE DEVICE Routine 10/05/2018 1 2:06 AM CDT POCT GLUCOSE DEVICE Routine 10/04/2018 1 1:03 PM CDT POCT GLUCOSE DEVICE Routine 10/04/2018 1 0:05 PM CDT POCT GLUCOSE DEVICE Routine 10/04/2018 8 :57 PM CDT EGFR Timed 10/04/2018 8:39 PM CDT PHOSPHORUS Timed 10/04/2018 8:39 PM CDT MAGNESIUM Timed 10/04/2018 8:39 PM CDT BASIC METABOLIC PANEL Timed 10/04/2018 8:39 PM CDT POCT GLUCOSE DEVICE Routine 10/04/2018 7 :58 PM CDT POCT GLUCOSE DEVICE Routine 10/04/2018 6 :52 PM CDT POCT GLUCOSE DEVICE Routine 10/04/2018 5 :56 PM CDT POCT GLUCOSE DEVICE Routine 10/04/2018 5 :03 PM CDT POCT GLUCOSE DEVICE Routine 10/04/2018 4 :10 PM CDT EGFR Timed 10/04/2018 3:58 PM CDT PHOSPHORUS Timed 10/04/2018 3:58 PM CDT MAGNESIUM Timed 10/04/2018 3:58 PM CDT BASIC METABOLIC PANEL Timed 10/04/2018 3:58 PM CDT POCT GLUCOSE DEVICE Routine 10/04/2018 2 :51 PM CDT POCT GLUCOSE DEVICE Routine 10/04/2018 1 :49 PM CDT POCT GLUCOSE DEVICE Routine 10/04/2018 1 2:54 PM CDT POCT GLUCOSE DEVICE Routine 10/04/2018 1 2:08 PM CDT LACTATE Routine 10/04/2018 11:00 AM CDT EGFR Timed 10/04/2018 11:00 AM CDT BETA-HYDROXYBUTYRATE Routine 10/04/2018 11:00 AM CDT PHOSPHORUS Timed 10/04/2018 11:00 AM CDT MAGNESIUM Timed 10/04/2018 11:00 AM CDT BASIC METABOLIC PANEL Timed 10/04/2018 11:00 AM CDT POCT GLUCOSE DEVICE Routine 10/04/2018 1 0:54 AM CDT POCT GLUCOSE DEVICE Routine 10/04/2018 9 :52 AM CDT SEPSIS LACTATE WITH REFLEX Timed 10/04/2018 8:48 AM CDT POCT GLUCOSE DEVICE Routine 10/04/2018 8 :09 AM CDT SEPSIS LACTATE WITH REFLEX Timed 10/04/2018 5:04 AM CDT URINALYSIS AND REFLEX TO MICROSCOPIC AND CULTURE STAT 10/04/2018 4:22 AM CDT SEPSIS LACTATE WITH REFLEX STAT 10/04/2018 3:33 AM CDT BLOOD CULTURE STAT 10/04/2018 3:33 AM CDT EGFR STAT 10/04/2018 3:25 AM CDT DIFFERENTIAL AUTO STAT 10/04/2018 3:2 5 AM CDT CBC WITH AUTO DIFFERENTIAL STAT 10/04/2018 3:25 AM CDT BLOOD CULTURE STAT 10/04/2018 3:25 AM CDT HCG, BLOOD, QUANTITATIVE STAT 10/04/2018 3:25 AM CDT LIPASE STAT 10/04/2018 3:25 AM CDT COMPREHENSIVE METABOLIC PANEL STAT 10/04/2018 3:25 AM CDT BLOOD GAS, ARTERIAL STAT 10/04/2018 3 :06 AM CDT documented in this encounter Results * (ABNORMAL) POCT glucose (10/07/2018 6:07 PM CDT) [facility] Signature Glucose, POC 153(H) 71 - 98 mg/dL TOMY SAHU (VASHTI) Blood specimen (specimen) 10/07/2018 6:07 PM CDT 10/07/2018 6:07 PM CDT Narrative TOMY SAHU (VASHTI) - 10/07/2018 6:18 PM CDT us Ernestine Cisneros MD LAB POCT ORDERABLES - DE VICE Final Result TOMY SAHU (VASHTI) 1 [facility] [place] [address] * (ABNORMAL) POCT glucose (10/07/2018 5:14 PM CDT) Glucose, POC 206(H) 71 - 98 mg/dL TOMY SAHU (NANCY) Blood specimen (specimen) 10/07/2018 5:14 PM CDT 10/07/2018 5:14 PM CDT Narrative TOMY SAHU (VASHTI) - 10/07/2018 5:14 PM CDT us Ernestine Cisneros MD LAB POCT ORDERABLES - DE VICE Final Result Performing Organization Address [facility]/ZIP Co de Phone Number TOMY SAHU (NANCY) 1 [facility] [place] [address] * (ABNORMAL) POCT glucose (10/07/2018 4:06 PM CDT) [facility] Glucose, POC 210(H) 71 - 98 mg/dL TOMY SAHU (NANCY) Blood specimen (specimen) 10/07/2018 4:06 PM CDT 10/07/2018 4:06 PM CDT Narrative TOMY SAHU (VASHTI) - 10/07/2018 4:07 PM CDT us Ernestine Cisneros MD LAB POCT ORDERABLES - DE VICE Final Result TOMY SAHU (NANCY) 1 [facility] [place] [address] * eGFR (10/07/2018 11:12 AM CDT) eGFR 153 mL/min/1.7 3 m2 [facility] (VASHTI) Comment: Interpretive Data Reference Interval Normal ?>/= 90 mL/min/1.73m2 Mildly decreased* ? 60 - 89 mL/min/1.73m2 Mildly to moderately decreased ?45 - 59 mL/min/1.73m2 Moderately to severely decreased ??30 - 44 mL/min/1.73m2 Severely decreased ?15 - 29 mL/min/1.73m2 Kidney Failure ?< 15 ??mL/min/1.73m2 *Relative to young adult level If -[place] multiply value by 1.16. Estimated glomerular filtration [...] was last reviewed 2015. Blood specimen (specimen) 10/07/2018 11:12 AM CDT 10/07/2018 11:32 AM CDT Narrative [facility] (VASHTI) - 10/07/2018 11:54 AM CDT us Gio Sewell MD LAB BLOOD ORDERABLES Final Re sult [facility] (VASHTI) 1 [facility] Department of Laboratories [place], [place] [id number] * (ABNORMAL) Basic metabolic panel (10/07/2018 11:12 AM CDT) Sodium 131(L) 135 - 145 mmol/L [facility] (VASHTI) Potassium, pl 3.8 3.3 - 4.9 mmol/L [facility] (VASHTI) Chloride 97 97 - 110 mmol/L TOMY [facility] (VASHTI) CO2 15(L) 22 - 32 mmol/L TOMY [facility] (VASHTI) Anion gap 19(H) 2 - 15 mmol/L [facility] (VASHTI) BUN 5(L) 8 - 25 mg/dL [facility] (VASHTI) Creatinine 0.36(L) 0.60 - 1.10 mg/dL TOMY [facility] (VASHTI) Glucose 245(H) 70 - 199 mg/dL TOMY [facility] (VASHTI) Comment: Interpretive Data Fasting glucose [...] Calcium 8.5 8.5 - 10.3 mg/dL TOMY [facility] (VASHTI) Blood specimen (specimen) 10/07/2018 11:12 AM CDT 10/07/2018 11:31 AM CDT Narrative TOMY SAHU (VASHTI) - 10/07/2018 11:54 AM CDT us Gio Sewell MD LAB BLOOD ORDERABLES Final Re sult TOMY [facility] (VASHTI) 1 [facility] Department of [place] [address] * (ABNORMAL) POCT glucose (10/07/2018 10:50 AM CDT) Glucose, POC 167(H) 71 - 98 mg/dL ASHLEYTOSHA SAHU (VASHTI) Blood specimen (specimen) 10/07/2018 10:50 AM CDT 10/07/2018 10:50 AM CDT Narrative TOMY LUIS ALBERTO (VASHTI) - 10/07/2018 10:51 AM CDT us Ernestine Cisneros MD LAB POCT ORDERABLES - DE VICE Final Result Performing Organization Address [facility] Co de Phone Number TOMY OwensNANCY) 1 [facility] [place] [address] * (ABNORMAL) POCT glucose (10/07/2018 7:31 AM CDT) Pathologist [facility] Glucose, POC 239(H) 71 - 98 mg/dL TOMY SAHU (NANCY) Blood specimen (specimen) 10/07/2018 7:31 AM CDT 10/07/2018 7:31 AM CDT Narrative TOMY OwensNANCY) - 10/07/2018 7:33 AM CDT Ernestine Cisneros MD LAB POCT ORDERABLES - DE VICE Final Result Performing Organization Address [facility] de Phone Number TOMY SAHU (NANCY) 1 [facility] [place] [address] * eGFR (10/07/2018 4:26 AM CDT) [facility] eGFR 153 mL/min/1.7 3 m2 TOMY SAHU (NANCY) Comment: Interpretive Data Reference Interval Normal ?>/= 90 mL/min/1.73m2 Mildly decreased* ? 60 - 89 mL/min/1.73m2 Mildly to moderately decreased ?45 - 59 mL/min/1.73m2 Moderately to severely decreased ??30 - 44 mL/min/1.73m2 Severely decreased ?15 - 29 mL/min/1.73m2 Kidney Failure ?< 15 ??mL/min/1.73m2 *Relative to young adult level If -[place] multiply value by 1.16. Estimated glomerular filtration [...] was last reviewed 2015. Blood specimen (specimen) 10/07/2018 4:26 AM CDT 10/07/2018 4:41 AM CDT Narrative TOMY [facility] (VASHTI) - 10/07/2018 5:21 AM CDT us Ernestine Cisneros MD LAB BLOOD ORDERABLES Fin al Result TOMY [facility] (VASHTI) 1 [facility] Department [place] [address] * (ABNORMAL) Renal function panel (10/07/2018 4:26 AM CDT) Sodium 133(L) 135 - 145 [...] - 1.10 mg/dL [facility] (VASHTI) Glucose 235(H) 70 - 199 mg/dL [facility] (VASHTI) [...] 10.3 mg/dL [facility] (VASHTI) Phosphorus, pl 1.7(L) 2.3 - 4.5 mg/dL [facility] (VASHTI) Albumin 3.6 3.5 - 5.0 g/dL [facility] (VASHTI) Blood specimen (specimen) 10/07/2018 4:26 AM CDT 10/07/2018 4:41 AM CDT Narrative TOMY [facility] (VASHTI) - 10/07/2018 5:21 AM CDT Ernestine Cisneros MD LAB BLOOD ORDERABLES Fin al Result Performing Organization Address City/[facility]/ZIP Co de Phone Number TOMY SAHU (VASHTI) [address] [place] [address] [address] [place] [address] * (ABNORMAL) POCT glucose (10/07/2018 1:39 AM CDT) Glucose, POC 236(H) 71 - 98 mg/dL [facility] (VASHTI) Blood specimen (specimen) 10/07/2018 1:39 AM CDT 10/07/2018 1:39 AM CDT Narrative TOMY [facility] (VASHTI) - 10/07/2018 1:41 AM CDT Ernestine Cisneros MD LAB POCT ORDERABLES - DE VICE Final Result Performing Organization Address City/[facility]/ZIP Co de Phone Number TOMY SAHU (VASHTI) [address] [place] [address] [place] [address] * (ABNORMAL) POCT glucose (10/06/2018 9:34 PM CDT) Glucose, POC 153(H) 71 - 98 mg/dL TOMY [facility] (VASHTI) Blood specimen (specimen) 10/06/2018 9:34 PM CDT 10/06/2018 9:34 PM CDT Narrative TOMY SAHU (VASHTI) - 10/06/2018 9:37 PM CDT Ernestine Cisneros MD LAB POCT ORDERABLES - DE VICE Final Result Performing Organization Address [facility] de Phone Number TOMY SAHU (VASHTI) 1 [facility] [place] [address] * (ABNORMAL) POCT glucose (10/06/2018 8:41 PM CDT) Glucose, POC 193(H) 71 - 98 mg/dL TOMY LUIS ALBERTO (NANCY) Blood specimen (specimen) 10/06/2018 8:41 PM CDT 10/06/2018 8:41 PM CDT Narrative TOMY SAHU (VASHTI) - 10/06/2018 9:01 PM CDT us Ernestine Cisneros MD LAB POCT ORDERABLES - DE VICE Final Result Performing Organization Address [facility] Co de Phone Number TOMY SAHU (VASHTI) 1 [facility] [place] [address] * eGFR (10/06/2018 8:03 PM CDT) eGFR 161 mL/min/1.7 3 m2 TOMY SAHU (VASHTI) Comment: Interpretive Data Reference Interval Normal ?>/= 90 mL/min/1.73m2 Mildly decreased* ? 60 - 89 mL/min/1.73m2 Mildly to moderately decreased ?45 - 59 mL/min/1.73m2 Moderately to severely decreased ??30 - 44 mL/min/1.73m2 Severely decreased ?15 - 29 mL/min/1.73m2 Kidney Failure ?< 15 ??mL/min/1.73m2 *Relative to young adult level If -[place] multiply value by 1.16. Estimated glomerular filtration [...] was last reviewed 2015. Blood specimen (specimen) 10/06/2018 8:03 PM CDT 10/06/2018 8:11 PM CDT Narrative TOMY SAHU (VASHTI) - 10/06/2018 8:31 PM CDT us Gio Sewell MD LAB BLOOD ORDERABLES Final Re sult TOMY [facility] (VASHTI) 1 [facility] Department [place] [address] * (ABNORMAL) Basic metabolic panel (10/06/2018 8:03 PM CDT) Sodium 133(L) 135 - 145 mmol/L [facility] (VASHTI) Potassium, pl 3.5 3.3 - 4.9 mmol/L [facility] (VASHTI) Chloride 102 97 - 110 mmol/L [facility] (VASHTI) CO2 19(L) 22 - 32 mmol/L [facility] (VASHTI) Anion gap 12 2 - 15 mmol/L [facility] (VASHTI) BUN <3(L) 8 - 25 mg/dL [facility] (VASHTI) Creatinine 0.31(L) 0.60 - 1.10 mg/dL [facility] (VASHTI) Glucose 176 70 - 199 mg/dL [facility] (VASHTI) Comment: Interpretive Data Fasting [...] mg/dL TOMY SAHU (VASHTI) Blood specimen (specimen) 10/06/2018 8:03 PM CDT 10/06/2018 8:11 PM CDT Narrative TOMY SAHU (VASHTI) - 10/06/2018 8:31 PM CDT us Gio Sewell MD LAB BLOOD ORDERABLES Final Re sult TOMY SAHU (VASHTI) 1 [facility] [address] [place] [address] * (ABNORMAL) POCT glucose (10/06/2018 7:50 PM CDT) Glucose, POC 165(H) 71 - 98 mg/dL TOMY SAHU (VASHTI) Blood specimen (specimen) 10/06/2018 7:50 PM CDT 10/06/2018 7:50 PM CDT Narrative TOMY SAHU (VASHTI) - 10/06/2018 8:00 PM CDT us Ernestine Cisneros MD LAB POCT ORDERABLES - DE VICE Final Result TOMY SAHU (VASHTI) 1 [facility] [address] [place] [address] * (ABNORMAL) POCT glucose (10/06/2018 6:42 PM CDT) Glucose, POC 183(H) 71 - 98 mg/dL TOMY SAHU (VASHTI) Blood specimen (specimen) 10/06/2018 6:42 PM CDT 10/06/2018 6:42 PM CDT Narrative TOMY SAHU (VASHTI) - 10/06/2018 6:48 PM CDT Ernestine Cisneros MD LAB POCT ORDERABLES - DE VICE Final Result TOMY SAHU (VASHTI) 1 [facility] [place] [address] * (ABNORMAL) POCT glucose (10/06/2018 5:43 PM CDT) Glucose, POC 167(H) 71 - 98 mg/dL TOMY SAHU (VASHTI) Blood specimen (specimen) 10/06/2018 5:43 PM CDT 10/06/2018 5:43 PM CDT Narrative TOMY SAHU (VASHTI) - 10/06/2018 5:45 PM CDT Ernestine Cisneros MD LAB POCT ORDERABLES - DE VICE Final Result Performing Organization Address [facility]/ZIP Co de Phone Number TOMY SAHU (NANCY) 1 [facility] [place] [address] * (ABNORMAL) POCT glucose (10/06/2018 4:35 PM CDT) Glucose, POC 166(H) 71 - 98 mg/dL TOMY SAHU (VASHTI) Blood specimen (specimen) 10/06/2018 4:35 PM CDT 10/06/2018 4:35 PM CDT Narrative TOMY SAHU (VASHTI) - 10/06/2018 4:40 PM CDT Ernestine Cisneros MD LAB POCT ORDERABLES - DE VICE Final Result TOMY SAHU (NANCY) 1 [facility] [place] [address] * eGFR (10/06/2018 3:53 PM CDT) eGFR 163 mL/min/1.7 3 m2 TOMY SAHU (VASHTI) Comment: Interpretive Data Reference Interval Normal ?>/= 90 mL/min/1.73m2 Mildly decreased* ? 60 - 89 mL/min/1.73m2 Mildly to moderately decreased ?45 - 59 mL/min/1.73m2 Moderately to severely decreased ??30 - 44 mL/min/1.73m2 Severely decreased ?15 - 29 mL/min/1.73m2 Kidney Failure ?< 15 ??mL/min/1.73m2 *Relative to young adult level If -[place] multiply value by 1.16. Estimated glomerular filtration [...] was last reviewed 2015. Blood specimen (specimen) 10/06/2018 3:53 PM CDT 10/06/2018 4:02 PM CDT Narrative TOMY SAHU (VASHTI) - 10/06/2018 4:17 PM CDT us Gio Sewell MD LAB BLOOD ORDERABLES Final Re sult TOMY SAHU (NANCY) 1 [facility] Department [place] [address] * (ABNORMAL) Basic metabolic panel (10/06/2018 3:53 PM CDT) Pathologist [facility] Sodium 133(L) 135 - 145 mmol/L TOMY SAHU (NANCY) Potassium, pl 3.6 3.3 - 4.9 mmol/L [...] 2017. Calcium 8.2(L) 8.5 - 10.3 mg/dL [facility] (VASHTI) Blood specimen (specimen) 10/06/2018 3:53 PM CDT 10/06/2018 4:02 PM CDT Narrative TOMY [facility] (VASHTI) - 10/06/2018 4:17 PM CDT us Gio Sewell MD LAB BLOOD ORDERABLES Final Re sult TOMY [facility] (VASHTI) 1 [facility] Department [place] [address] * (ABNORMAL) POCT glucose (10/06/2018 2:24 PM CDT) Glucose, POC 129(H) 71 - 98 mg/dL [facility] (VASHTI) Blood specimen (specimen) 10/06/2018 2:24 PM CDT 10/06/2018 2:24 PM CDT Narrative TOMY [facility] (VASHTI) - 10/06/2018 2:26 PM CDT us Ernestine Cisneros MD LAB POCT ORDERABLES - DE VICE Final Result TOMY SAHU (NANCY) 1 [facility] Department [place] [address] * eGFR (10/06/2018 1:02 PM CDT) eGFR 154 mL/min/1.7 3 m2 TOMY SAHU (NANCY) Comment: Interpretive Data Reference Interval Normal ?>/= 90 mL/min/1.73m2 Mildly decreased* ? 60 - 89 mL/min/1.73m2 Mildly to moderately decreased ?45 - 59 mL/min/1.73m2 Moderately to severely decreased ??30 - 44 mL/min/1.73m2 Severely decreased ?15 - 29 mL/min/1.73m2 Kidney Failure ?< 15 ??mL/min/1.73m2 *Relative to young adult level If -[place] multiply value by 1.16. Estimated glomerular filtration [...] was last reviewed 2015. Blood specimen (specimen) 10/06/2018 1:02 PM CDT 10/06/2018 1:57 PM CDT Narrative TOMY SAHU (VASHTI) - 10/06/2018 2:15 PM CDT us Gio Sewell MD LAB BLOOD ORDERABLES Final Re sult Performing Organization Address City/[facility]/ZIP Co de Phone Number TOMY SAHU (VASHTI) 1 [facility] Department [place] [address] * (ABNORMAL) Basic metabolic panel (10/06/2018 1:02 PM CDT) Sodium 134(L) 135 - 145 mmol/L CERNER [...] - 1.10 mg/dL [facility] (VASHTI) Glucose 179 70 - 199 mg/dL [facility] (VASHTI) Comment: Interpretive Data Fasting glucose [...] 2017. Calcium 8.2(L) 8.5 - 10.3 mg/dL [facility] (VASHTI) Blood specimen (specimen) 10/06/2018 1:02 PM CDT 10/06/2018 1:57 PM CDT Narrative TOMY SAHU (VASHTI) - 10/06/2018 2:15 PM CDT us Gio Sewell MD LAB BLOOD ORDERABLES Final Re sult TOMY SAHU (VASHTI) 1 [facility] Department [place] [address] * (ABNORMAL) POCT glucose (10/06/2018 12:50 PM CDT) Glucose, POC 153(H) 71 - 98 mg/dL TOMY SAHU (NANCY) Blood specimen (specimen) 10/06/2018 12:50 PM CDT 10/06/2018 12:50 PM CDT Narrative TOMY SAHU (NANCY) - 10/06/2018 12:52 PM CDT Ernestine Cisneros MD LAB POCT ORDERABLES - DE VICE Final Result Performing Organization Address City/[facility]/ZIP Co de Phone Number TOMY SAHU (NANCY) [address] [place] [address] [place] [address] * (ABNORMAL) POCT glucose (10/06/2018 10:54 AM CDT) Glucose, POC 140(H) 71 - 98 mg/dL TOMY SAHU (NANCY) Blood specimen (specimen) 10/06/2018 10:54 AM CDT 10/06/2018 10:54 AM CDT Narrative TOMY SAHU (NANCY) - 10/06/2018 10:56 AM CDT us Ernestine Cisneros MD LAB POCT ORDERABLES - DE VICE Final Result TOMY SAHU (NANCY) [address] [place] [address] [place] [address] * (ABNORMAL) POCT glucose (10/06/2018 9:53 AM CDT) Glucose, POC 139(H) 71 - 98 mg/dL TOMY SAHU (NANCY) Blood specimen (specimen) 10/06/2018 9:53 AM CDT 10/06/2018 9:53 AM CDT Narrative TOMY SAHU (NANCY) - 10/06/2018 9:54 AM CDT us Ernestine Cisneros MD LAB POCT ORDERABLES - DE VICE Final Result Performing Organization Address [facility] de Phone Number TOMY SAHU (NANCY) [address] [place] [address] [place] [address] * (ABNORMAL) POCT glucose (10/06/2018 8:50 AM CDT) Pathologist [facility] Glucose, POC 141(H) 71 - 98 mg/dL TOMY SAHU (NANCY) Blood specimen (specimen) 10/06/2018 8:50 AM CDT 10/06/2018 8:50 AM CDT Narrative TOMY OwensNANCY) - 10/06/2018 8:52 AM CDT us Ernestine Cisneros MD LAB POCT ORDERABLES - DE VICE Final Result Performing Organization Address [facility] de Phone Number TOMY SAHU (NANCY) [address] [place] [address] [place] [address] * eGFR (10/06/2018 8:18 AM CDT) [facility] eGFR 168 mL/min/1.7 3 m2 TOMY SAHU (NANCY) Comment: Interpretive Data Reference Interval Normal ?>/= 90 mL/min/1.73m2 Mildly decreased* ? 60 - 89 mL/min/1.73m2 Mildly to moderately decreased ?45 - 59 mL/min/1.73m2 Moderately to severely decreased ??30 - 44 mL/min/1.73m2 Severely decreased ?15 - 29 mL/min/1.73m2 Kidney Failure ?< 15 ??mL/min/1.73m2 *Relative to young adult level If -[place] multiply value by 1.16. Estimated glomerular filtration [...] was last reviewed 2015. Blood specimen (specimen) 10/06/2018 8:18 AM CDT 10/06/2018 8:27 AM CDT Narrative TOMY [facility] (VASHTI) - 10/06/2018 8:57 AM CDT us Gio Sewell MD LAB BLOOD ORDERABLES Final Re sult TOMY [facility] (VASHTI) 1 [facility] Department [place] [address] * (ABNORMAL) Basic metabolic panel (10/06/2018 8:18 AM CDT) Sodium 134(L) 135 - 145 mmol/L CERNER [...] mg/dL TOMY SAHU (VASHTI) Blood specimen (specimen) 10/06/2018 8:18 AM CDT 10/06/2018 8:27 AM CDT Narrative TOMY SAHU (VASHTI) - 10/06/2018 8:57 AM CDT Gio Sewell MD LAB BLOOD ORDERABLES Final Re sult TOMY SAHU (VASHTI) 1 [facility] [place] [address] * (ABNORMAL) POCT glucose (10/06/2018 7:40 AM CDT) Glucose, POC 133(H) 71 - 98 mg/dL TOMY SAHU (VASHTI) Blood specimen (specimen) 10/06/2018 7:40 AM CDT 10/06/2018 7:40 AM CDT Narrative TOMY SAHU (VASHTI) - 10/06/2018 7:42 AM CDT us Ernestine Cisneros MD LAB POCT ORDERABLES - DE VICE Final Result Performing Organization Address City/[facility]/ZIP Co de Phone Number TOMY SAHU (VASHTI) [address] [place] [address] [place] [address] * (ABNORMAL) POCT glucose (10/06/2018 6:31 AM CDT) Glucose, POC 143(H) 71 - 98 mg/dL ASHLEYTOSHA LUIS ALBERTO (VASHTI) Blood specimen (specimen) 10/06/2018 6:31 AM CDT 10/06/2018 6:31 AM CDT Narrative TOMY SAHU (VASHTI) - 10/06/2018 6:32 AM CDT Ernestine Cisneros MD LAB POCT ORDERABLES - DE VICE Final Result TOMY SAHU (NANCY) 1 [facility] [place] [address] * (ABNORMAL) POCT glucose (10/06/2018 5:29 AM CDT) Glucose, POC 160(H) 71 - 98 mg/dL TOMY LUIS ALBERTO (NANCY) Blood specimen (specimen) 10/06/2018 5:29 AM CDT 10/06/2018 5:29 AM CDT Narrative TOMY SAHU (VASHTI) - 10/06/2018 5:31 AM CDT Ernestine Cisneros MD LAB POCT ORDERABLES - DE VICE Final Result Performing Organization Address City/[facility]/ZIP Co de Phone Number TOMY SAHU (NANCY) 1 [facility] [place] [address] * eGFR (10/06/2018 4:28 AM CDT) Pathologist [facility] eGFR 154 mL/min/1.7 3 m2 TOMY LUIS ALBERTO (NANCY) Comment: Interpretive Data Reference Interval Normal ?>/= 90 mL/min/1.73m2 Mildly decreased* ? 60 - 89 mL/min/1.73m2 Mildly to moderately decreased ?45 - 59 mL/min/1.73m2 Moderately to severely decreased ??30 - 44 mL/min/1.73m2 Severely decreased ?15 - 29 mL/min/1.73m2 Kidney Failure ?< 15 ??mL/min/1.73m2 *Relative to young adult level If -[place] multiply value by 1.16. Estimated glomerular filtration [...] was last reviewed 2015. Blood specimen (specimen) 10/06/2018 4:28 AM CDT 10/06/2018 4:31 AM CDT Narrative TOMY SAHU (VASHTI) - 10/06/2018 5:23 AM CDT us Gio Sewell MD LAB BLOOD ORDERABLES Final Re sult TOMY SAHU (VASHTI) 1 [facility] [address] [place] [address] * (ABNORMAL) POCT glucose (10/06/2018 4:28 AM CDT) Glucose, POC 196(H) 71 - 98 mg/dL [facility]OMY [facility] (VASHTI) Blood specimen (specimen) 10/06/2018 4:28 AM CDT 10/06/2018 4:28 AM CDT Narrative TOMY SAHU (VASHTI) - 10/06/2018 4:28 AM CDT us Ernestine Cisneros MD LAB POCT ORDERABLES - DE VICE Final Result TOMY SAHU (VASHTI) 1 [facility] [address] [place] [address] * (ABNORMAL) Basic metabolic panel (10/06/2018 4:28 AM CDT) Sodium 134(L) 135 - 145 mmol/L [facility] (VASHTI) Potassium, pl 3.3 3.3 - 4.9 mmol/L [facility] (VASHTI) Chloride 101 97 - 110 mmol/L [facility] (VASHTI) CO2 15(L) 22 - 32 mmol/L [facility] (VASHTI) Anion gap 18(H) 2 - 15 mmol/L [facility] (VASHTI) BUN 6(L) 8 - 25 mg/dL [facility] (VASHTI) Creatinine 0.35(L) 0.60 - 1.10 mg/dL [facility] (VASHTI) Glucose 224(H) 70 - 199 mg/dL TOMY [facility] (VASHTI) [...] Calcium 8.2(L) 8.5 - 10.3 mg/dL TOMY [facility] (VASHTI) Blood specimen (specimen) 10/06/2018 4:28 AM CDT 10/06/2018 4:31 AM CDT Narrative TOMY [facility] (VASHTI) - 10/06/2018 5:23 AM CDT us Gio Sewell MD LAB BLOOD ORDERABLES Final Re sult TOMY SAHU (VASHTI) 1 [facility] Department [place] [address] * (ABNORMAL) POCT glucose (10/06/2018 3:25 AM CDT) Glucose, POC 157(H) 71 - 98 mg/dL [facility] (VASHTI) Blood specimen (specimen) 10/06/2018 3:25 AM CDT 10/06/2018 3:25 AM CDT Narrative TOMY [facility] (VASHTI) - 10/06/2018 3:26 AM CDT us Ernestine Cisneros MD LAB POCT ORDERABLES - DE VICE Final Result Performing Organization Address [facility]/ZIP Co de Phone Number TOMY SAHU (VASHTI) 1 [facility] [place] [address] * (ABNORMAL) POCT glucose (10/06/2018 2:23 AM CDT) Glucose, POC 113(H) 71 - 98 mg/dL TOMY SAHU (VASHTI) Blood specimen (specimen) 10/06/2018 2:23 AM CDT 10/06/2018 2:23 AM CDT Narrative TOMY SAHU (VASHTI) - 10/06/2018 2:24 AM CDT us Ernestine Cisneros MD LAB POCT ORDERABLES - DE VICE Final Result Performing Organization Address [facility] Co de Phone Number TOMY SAHU (NANCY) 1 [facility] [place] [address] * (ABNORMAL) POCT glucose (10/06/2018 1:20 AM CDT) Glucose, POC 140(H) 71 - 98 mg/dL TOMY SAHU (NANCY) Blood specimen (specimen) 10/06/2018 1:20 AM CDT 10/06/2018 1:20 AM CDT Narrative TOMY SAHU (VASHTI) - 10/06/2018 1:21 AM CDT us Ernestine Cisneros MD LAB POCT ORDERABLES - DE VICE Final Result Performing Organization Address [facility] Co de Phone Number TOMY SAHU (NANCY) 1 [facility] [place] [address] * eGFR (10/06/2018 12:36 AM CDT) eGFR 153 mL/min/1.7 3 m2 TOMY SAHU (VASHTI) Comment: Interpretive Data Reference Interval Normal ?>/= 90 mL/min/1.73m2 Mildly decreased* ? 60 - 89 mL/min/1.73m2 Mildly to moderately decreased ?45 - 59 mL/min/1.73m2 Moderately to severely decreased ??30 - 44 mL/min/1.73m2 Severely decreased ?15 - 29 mL/min/1.73m2 Kidney Failure ?< 15 ??mL/min/1.73m2 *Relative to young adult level If -[place] multiply value by 1.16. Estimated glomerular filtration [...] was last reviewed 2015. Blood specimen (specimen) 10/06/2018 12:36 AM CDT 10/06/2018 12:39 AM CDT Narrative TOMY SAHU (VASHTI) - 10/06/2018 1:13 AM CDT us Gio Sewell MD LAB BLOOD ORDERABLES Final Re sult TOMY SAHU (VASHTI) 1 [facility] Department [place] [address] * (ABNORMAL) Basic metabolic panel (10/06/2018 12:36 AM CDT) Sodium 132(L) 135 - 145 mmol/L TOMY SAHU (VASHTI) Potassium, pl 2.8(C) 3.3 - 4.9 mmol/L TOMY SAHU (VASHTI) Comment:Critical Result call ed to and read back by Luna Baugh-ICU, DATE: 2018-10-06 01:13:42 BY: Irasema Gould Chloride 99 97 - 110 mmol/L [facility] (VASHTI) CO2 18(L) 22 - 32 mmol/L [facility] (VASHTI) Anion gap 15 2 - 15 mmol/L [facility] (VASHTI) BUN 6(L) 8 - 25 mg/dL [facility] (VASHTI) Creatinine 0.36(L) 0.60 - 1.10 mg/dL [facility] (VASHTI) Glucose 164 70 - 199 mg/dL TOMY [facility] (VASHTI) [...] mg/dL TOMY SAHU (VASHTI) Blood specimen (specimen) 10/06/2018 12:36 AM CDT 10/06/2018 12:39 AM CDT Narrative TOMY SAHU (VASHTI) - 10/06/2018 1:13 AM CDT us Gio Sewell MD LAB BLOOD ORDERABLES Final Re sult TOMY SAHU (VASHTI) 1 [facility] Department [place] [address] * (ABNORMAL) POCT glucose (10/06/2018 12:15 AM CDT) Glucose, POC 143(H) 71 - 98 mg/dL [facility] (VASHTI) Blood specimen (specimen) 10/06/2018 12:15 AM CDT 10/06/2018 12:15 AM CDT Narrative [facility] (VASHTI) - 10/06/2018 12:16 AM CDT us Ernestine Cisneros MD LAB POCT ORDERABLES - DE VICE Final Result TOMY OwensNANCY) [address] [place] [address] [place] [address] * (ABNORMAL) POCT glucose (10/05/2018 11:11 PM CDT) Glucose, POC 204(H) 71 - 98 mg/dL TOMY SAHU (NANCY) Blood specimen (specimen) 10/05/2018 11:11 PM CDT 10/05/2018 11:11 PM CDT Narrative TOMY SAHU (NANCY) - 10/05/2018 11:21 PM CDT us Ernestine Cisneros MD LAB POCT ORDERABLES - DE VICE Final Result Performing Organization Address City/[facility]/ZIP Co de Phone Number TOMY SAHU (NANCY) [address] [place] [address] [place] [address] * (ABNORMAL) POCT glucose (10/05/2018 10:06 PM CDT) Glucose, POC 179(H) 71 - 98 mg/dL TOMY SAHU (NANCY) Blood specimen (specimen) 10/05/2018 10:06 PM CDT 10/05/2018 10:06 PM CDT Narrative TOMY SAHU (NANCY) - 10/05/2018 10:26 PM CDT us Ernestine Cisneros MD LAB POCT ORDERABLES - DE VICE Final Result TOMY SAHU (NANCY) [address] [place] [address] [place] [address] * (ABNORMAL) POCT glucose (10/05/2018 9:06 PM CDT) Glucose, POC 176(H) 71 - 98 mg/dL TOMY SAHU (NANCY) Blood specimen (specimen) 10/05/2018 9:06 PM CDT 10/05/2018 9:06 PM CDT Narrative TOMY SAHU (VASHTI) - 10/05/2018 9:07 PM CDT us Ernestine Cisneros MD LAB POCT ORDERABLES - DE VICE Final Result TOMY SAHU (VASHTI) 1 [facility] Department [place] [address] * eGFR (10/05/2018 8:23 PM CDT) eGFR 158 mL/min/1.7 3 m2 TOMY LUIS ALBERTO (VASHTI) Comment: Interpretive Data Reference Interval Normal ?>/= 90 mL/min/1.73m2 Mildly decreased* ? 60 - 89 mL/min/1.73m2 Mildly to moderately decreased ?45 - 59 mL/min/1.73m2 Moderately to severely decreased ??30 - 44 mL/min/1.73m2 Severely decreased ?15 - 29 mL/min/1.73m2 Kidney Failure ?< 15 ??mL/min/1.73m2 *Relative to young adult level If -[place] multiply value by 1.16. Estimated glomerular filtration [...] was last reviewed 2015. Blood specimen (specimen) 10/05/2018 8:23 PM CDT 10/05/2018 8:27 PM CDT Narrative [facility] (VASHTI) - 10/05/2018 8:45 PM CDT us Gio Sewell MD LAB BLOOD ORDERABLES Final Re sult TOMY LUQUE) 1 [facility] Department [place] [address] * (ABNORMAL) Basic metabolic panel (10/05/2018 8:23 PM CDT) Sodium 135 135 - 145 mmol/L [facility] (VASHTI) Potassium, pl 3.3 3.3 - 4.9 mmol/L [facility] (VASHTI) Chloride 102 97 - 110 mmol/L [facility] (VASHTI) CO2 17(L) 22 - 32 mmol/L [facility] (VASHTI) Anion gap 17(H) 2 - 15 mmol/L [facility] (VASHTI) BUN 8 8 - 25 mg/dL [facility] ([place]ASHTI) Creatinine 0.33(L) 0.60 - 1.10 mg/dL [facility] (VASHTI) Glucose 161 70 - 199 mg/dL [facility] (VASHTI) Comment: Interpretive Data Fasting glucose [...] 2017. Calcium 8.4(L) 8.5 - 10.3 mg/dL [facility] (VASHTI) Blood specimen (specimen) 10/05/2018 8:23 PM CDT 10/05/2018 8:27 PM CDT Narrative TOMY SAHU (VASHTI) - 10/05/2018 8:45 PM CDT us Gio Sewell MD LAB BLOOD ORDERABLES Final Re sult TOMY SAHU (VASHTI) 1 [facility] [place] [address] * (ABNORMAL) POCT glucose (10/05/2018 7:59 PM CDT) Glucose, POC 129(H) 71 - 98 mg/dL TOMY SAHU (VASHTI) Blood specimen (specimen) 10/05/2018 7:59 PM CDT 10/05/2018 7:59 PM CDT Narrative TOMY SAHU (VASHTI) - 10/05/2018 8:00 PM CDT Ernestine Cisneros MD LAB POCT ORDERABLES - DE VICE Final Result Performing Organization Address [facility]/ZIP Co de Phone Number TOMY SAHU (NANCY) 1 [facility] [place] [address] * (ABNORMAL) POCT glucose (10/05/2018 7:02 PM CDT) Glucose, POC 135(H) 71 - 98 mg/dL TOMY SAHU (NANCY) Blood specimen (specimen) 10/05/2018 7:02 PM CDT 10/05/2018 7:02 PM CDT Narrative TOYM SAHU (VASHTI) - 10/05/2018 7:03 PM CDT us Ernestine Cisneros MD LAB POCT ORDERABLES - DE VICE Final Result TOMY SAHU (NANCY) 1 [facility] [place] [address] * (ABNORMAL) POCT glucose (10/05/2018 6:02 PM CDT) Glucose, POC 180(H) 71 - 98 mg/dL TOMY SAHU (VASHTI) Blood specimen (specimen) 10/05/2018 6:02 PM CDT 10/05/2018 6:02 PM CDT Narrative TOMY SAHU (VASHTI) - 10/05/2018 6:02 PM CDT Ernestine Cisneros MD LAB POCT ORDERABLES - DE VICE Final Result Performing Organization Address [facility]/ZIP Co de Phone Number TOMY SAHU (VASHTI) 1 [facility] [place] [address] * (ABNORMAL) POCT glucose (10/05/2018 5:04 PM CDT) Pathologist [facility] Glucose, POC 133(H) 71 - 98 mg/dL TOMY SAHU (NANCY) Blood specimen (specimen) 10/05/2018 5:04 PM CDT 10/05/2018 5:04 PM CDT Narrative TOMY SAHU (VASHTI) - 10/05/2018 5:05 PM CDT us Ernestine Cisneros MD LAB POCT ORDERABLES - DE VICE Final Result Performing Organization Address [facility]/ZIP Co de Phone Number TOMY SAHU (NANCY) 1 [facility] [place] [address] * eGFR (10/05/2018 4:16 PM CDT) Pathologist [facility] eGFR 170 mL/min/1.7 3 m2 TOMY SAHU (VASHTI) Comment: Interpretive Data Reference Interval Normal ?>/= 90 mL/min/1.73m2 Mildly decreased* ? 60 - 89 mL/min/1.73m2 Mildly to moderately decreased ?45 - 59 mL/min/1.73m2 Moderately to severely decreased ??30 - 44 mL/min/1.73m2 Severely decreased ?15 - 29 mL/min/1.73m2 Kidney Failure ?< 15 ??mL/min/1.73m2 *Relative to young adult level If -[place] multiply value by 1.16. Estimated glomerular filtration [...] was last reviewed 2015. Blood specimen (specimen) 10/05/2018 4:16 PM CDT 10/05/2018 4:22 PM CDT Narrative TOMY SAHU (VASHTI) - 10/05/2018 4:41 PM CDT us Gio Sewell MD LAB BLOOD ORDERABLES Final Re sult [facility] (NANCY) 1 [facility] Department [place] [address] * (ABNORMAL) Basic metabolic panel (10/05/2018 4:16 PM CDT) Sodium 134(L) 135 - 145 mmol/L [facility] (VASHTI) Potassium, pl 3.6 3.3 - 4.9 mmol/L [facility] (VASHTI) Comment:Hemolysis present. R esults may be affected. Chloride 104 97 - 110 mmol/L [facility] (VASHTI) CO2 14(L) 22 - 32 mmol/L [facility] (VASHTI) Anion gap 17(H) 2 - 15 mmol/L [facility] (VASHTI) BUN 9 8 - 25 mg/dL [facility] (VASHTI) Creatinine 0.26(L) 0.60 - 1.10 mg/dL [facility] (VASHTI) Glucose 164 70 - 199 mg/dL [facility] (VASHTI) [...] mg/dL TOMY SAHU (VASHTI) Blood specimen (specimen) 10/05/2018 4:16 PM CDT 10/05/2018 4:22 PM CDT Narrative [facility] (VASHTI) - 10/05/2018 4:41 PM CDT us Gio Sewell MD LAB BLOOD ORDERABLES Final Re sult Performing Organization Address City/[facility]/ZIP Co de Phone Number TOMY SAHU (VASHTI) 1 [facility] [address] [place] [address] * (ABNORMAL) POCT glucose (10/05/2018 3:39 PM CDT) Glucose, POC 138(H) 71 - 98 mg/dL [facility] (VASHTI) Blood specimen (specimen) 10/05/2018 3:39 PM CDT 10/05/2018 3:39 PM CDT Narrative [facility] (VASHTI) - 10/05/2018 3:40 PM CDT us Ernestine Cisneros MD LAB POCT ORDERABLES - DE VICE Final Result TOMY SAHU (VASHTI) 1 [facility] [address] [place] [address] * (ABNORMAL) POCT glucose (10/05/2018 1:55 PM CDT) Glucose, POC 182(H) 71 - 98 mg/dL TOMY SAHU (VASHTI) Blood specimen (specimen) 10/05/2018 1:55 PM CDT 10/05/2018 1:55 PM CDT Narrative TOMY SAHU (VASHTI) - 10/05/2018 1:57 PM CDT us Ernestine Cisneros MD LAB POCT ORDERABLES - DE VICE Final Result TOMY SAHU (VASHTI) 1 [facility] Department [place] [address] * eGFR (10/05/2018 1:12 PM CDT) eGFR 163 mL/min/1.7 3 m2 TOMY SAHU (VASHTI) Comment: Interpretive Data Reference Interval Normal ?>/= 90 mL/min/1.73m2 Mildly decreased* ? 60 - 89 mL/min/1.73m2 Mildly to moderately decreased ?45 - 59 mL/min/1.73m2 Moderately to severely decreased ??30 - 44 mL/min/1.73m2 Severely decreased ?15 - 29 mL/min/1.73m2 Kidney Failure ?< 15 ??mL/min/1.73m2 *Relative to young adult level If -[place] multiply value by 1.16. Estimated glomerular filtration [...] was last reviewed 2015. Blood specimen (specimen) 10/05/2018 1:12 PM CDT 10/05/2018 1:32 PM CDT Narrative TOMY SAHU (VASHTI) - 10/05/2018 1:52 PM CDT us Gio Sewell MD LAB BLOOD ORDERABLES Final Re sult Performing Organization Address City/[facility]/ZIP Co de Phone Number TOMY SAHU (VASHTI) 1 [facility] [address] [place] [address] * (ABNORMAL) Basic metabolic panel (10/05/2018 1:12 PM CDT) Sodium 137 135 - 145 mmol/L [facility] (VASHTI) Potassium, pl 3.5 3.3 - 4.9 mmol/L [facility] (VASHTI) Chloride 105 97 - 110 mmol/L [facility] (VASHTI) CO2 16(L) 22 - 32 mmol/L [facility] (VASHTI) Anion gap 16(H) 2 - 15 mmol/L [facility] (VSAHTI) BUN 10 8 - 25 mg/dL [facility] (VASHTI) Creatinine 0.30(L) 0.60 - 1.10 mg/dL [facility] (VASHTI) Glucose 162 70 - 199 mg/dL [facility] (VASHTI) Comment: Interpretive Data Fasting glucose [...] interpretive data was last revised 2017. Calcium 8.0(L) 8.5 - 10.3 mg/dL [facility] (VASHTI) Blood specimen (specimen) 10/05/2018 1:12 PM CDT 10/05/2018 1:32 PM CDT Narrative TOMY SAHU (VASHTI) - 10/05/2018 1:52 PM CDT Gio Sewell MD LAB BLOOD ORDERABLES Final Re sult Performing Organization Address City/[facility]/ZIP Co de Phone Number TOMY SAHU (VASHTI) 1 [facility] [place] [address] * (ABNORMAL) POCT glucose (10/05/2018 12:52 PM CDT) Glucose, POC 129(H) 71 - 98 mg/dL TOMY SAHU (NANCY) Blood specimen (specimen) 10/05/2018 12:52 PM CDT 10/05/2018 12:52 PM CDT Narrative TOMY SAHU (NANCY) - 10/05/2018 1:20 PM CDT Ernestine Cisneros MD LAB POCT ORDERABLES - DE VICE Final Result TOMY SAHU (NANCY) [address] [place] [address] [place] [address] * POCT glucose (10/05/2018 11:47 AM CDT) Glucose, POC 95 71 - 98 mg/dL TOMY SAHU (NANCY) Blood specimen (specimen) 10/05/2018 11:47 AM CDT 10/05/2018 11:47 AM CDT Narrative TOMY SAHU (NANCY) - 10/05/2018 11:48 AM CDT us Ernestine Cisneros MD LAB POCT ORDERABLES - DE VICE Final Result TOMY SAHU (NANCY) [address] [place] [address] [place] [address] * (ABNORMAL) POCT glucose (10/05/2018 10:11 AM CDT) Glucose, POC 154(H) 71 - 98 mg/dL TOMY SAHU (NANCY) Blood specimen (specimen) 10/05/2018 10:11 AM CDT 10/05/2018 10:11 AM CDT Narrative TOMY SAHU (NANCY) - 10/05/2018 10:31 AM CDT us Ernestine Cisneros MD LAB POCT ORDERABLES - DE VICE Final Result Performing Organization Address [facility] Co de Phone Number TOMY OwensVASHTI) 1 [facility] Department [place] [address] * eGFR (10/05/2018 9:06 AM CDT) eGFR 152 mL/min/1.7 3 m2 TOMY SAHU (NANCY) Comment: Interpretive Data Reference Interval Normal ?>/= 90 mL/min/1.73m2 Mildly decreased* ? 60 - 89 mL/min/1.73m2 Mildly to moderately decreased ?45 - 59 mL/min/1.73m2 Moderately to severely decreased ??30 - 44 mL/min/1.73m2 Severely decreased ?15 - 29 mL/min/1.73m2 Kidney Failure ?< 15 ??mL/min/1.73m2 *Relative to young adult level If -[place] multiply value by 1.16. Estimated glomerular filtration [...] was last reviewed 2015. Blood specimen (specimen) 10/05/2018 9:06 AM CDT 10/05/2018 9:09 AM CDT Narrative TOMY LUQUE) - 10/05/2018 9:31 AM CDT us Gio Sewell MD LAB BLOOD ORDERABLES Final Re sult Performing Organization Address [facility]/State/ZIP Co de Phone Number TOMY SAHU (VASHTI) 1 [facility] Department [place] [address] * (ABNORMAL) Basic metabolic panel (10/05/2018 9:06 AM CDT) Sodium 132(L) 135 - 145 [...] - 1.10 mg/dL [facility] (VASHTI) Glucose 222(H) 70 - 199 mg/dL [facility] (VASHTI) [...] interpretive data was last revised 2017. Calcium 8.0(L) 8.5 - 10.3 mg/dL [facility] (VASHTI) Blood specimen (specimen) 10/05/2018 9:06 AM CDT 10/05/2018 9:09 AM CDT Narrative TOMY SAHU (VASHTI) - 10/05/2018 9:31 AM CDT us Gio Sewell MD LAB BLOOD ORDERABLES Final Re sult TOMY SAHU (VASHTI) 1 [facility] Department [place] [address] * (ABNORMAL) POCT glucose (10/05/2018 9:05 AM CDT) Glucose, POC 189(H) 71 - 98 mg/dL TOMY SAHU (NANCY) Blood specimen (specimen) 10/05/2018 9:05 AM CDT 10/05/2018 9:05 AM CDT Narrative TOMY SAHU (VASHTI) - 10/05/2018 9:07 AM CDT Ernestine Cisneros MD LAB POCT ORDERABLES - DE VICE Final Result Performing Organization Address City/[facility]/ZIP Co de Phone Number TOMY SAHU (NANCY) [address] [place] [address] [place] [address] * (ABNORMAL) POCT glucose (10/05/2018 7:59 AM CDT) Glucose, POC 252(H) 71 - 98 mg/dL TOMY SAHU (NANCY) Blood specimen (specimen) 10/05/2018 7:59 AM CDT 10/05/2018 7:59 AM CDT Narrative TOMY SAHU (NANCY) - 10/05/2018 8:15 AM CDT Ernestine Cisneros MD LAB POCT ORDERABLES - DE VICE Final Result Performing Organization Address City/[facility]/ZIP Co de Phone Number TOMY SAHU (NANCY) [address] [place] [address] [place] [address] * (ABNORMAL) POCT glucose (10/05/2018 6:44 AM CDT) Glucose, POC 164(H) 71 - 98 mg/dL TOMY SAHU (NANCY) Blood specimen (specimen) 10/05/2018 6:44 AM CDT 10/05/2018 6:44 AM CDT Narrative TOMY SAHU (NANCY) - 10/05/2018 6:49 AM CDT us Ernestine Cisneros MD LAB POCT ORDERABLES - DE VICE Final Result TOMY SAHU (NANCY) 1 [facility] [place] [address] * (ABNORMAL) POCT glucose (10/05/2018 5:51 AM CDT) Glucose, POC 121(H) 71 - 98 mg/dL TOMY SAHU (NANCY) Blood specimen (specimen) 10/05/2018 5:51 AM CDT 10/05/2018 5:51 AM CDT Narrative TOMY SAHU (NANCY) - 10/05/2018 6:12 AM CDT Ernestine Cisneros MD LAB POCT ORDERABLES - DE VICE Final Result Performing Organization Address City/[facility]/ZIP Co de Phone Number TOMY SAHU (NANCY) [address] [place] [address] [place] [address] * (ABNORMAL) POCT glucose (10/05/2018 5:04 AM CDT) Glucose, POC 119(H) 71 - 98 mg/dL TOMY SAHU (NANCY) Blood specimen (specimen) 10/05/2018 5:04 AM CDT 10/05/2018 5:04 AM CDT Narrative TOMY SAHU (NANCY) - 10/05/2018 5:08 AM CDT us Ernestine Cisneros MD LAB POCT ORDERABLES - DE VICE Final Result TOMY SAHU (NANCY) 1 [facility] [place] [address] * eGFR (10/05/2018 4:06 AM CDT) eGFR 163 mL/min/1.7 3 m2 TOMY SAHU (NANCY) Comment: Interpretive Data Reference Interval Normal ?>/= 90 mL/min/1.73m2 Mildly decreased* ? 60 - 89 mL/min/1.73m2 Mildly to moderately decreased ?45 - 59 mL/min/1.73m2 Moderately to severely decreased ??30 - 44 mL/min/1.73m2 Severely decreased ?15 - 29 mL/min/1.73m2 Kidney Failure ?< 15 ??mL/min/1.73m2 *Relative to young adult level If -[place] multiply value by 1.16. Estimated glomerular filtration [...] was last reviewed 2015. Blood specimen (specimen) 10/05/2018 4:06 AM CDT 10/05/2018 4:14 AM CDT Narrative [facility] (VASHTI) - 10/05/2018 4:30 AM CDT us Gio Sewell MD LAB BLOOD ORDERABLES Final Re sult [facility] (VASHTI) 1 [facility] Department [place] [address] * (ABNORMAL) Basic metabolic panel (10/05/2018 4:06 AM CDT) Sodium 138 135 - 145 mmol/L [facility] (VASHTI) Potassium, pl 3.4 3.3 - 4.9 mmol/L [facility] (VASHTI) Chloride 109 97 - 110 mmol/L [facility] (VASHTI) CO2 17(L) 22 - 32 mmol/L [facility] (VASHTI) Anion gap 13 2 - 15 mmol/L [facility] (VASHTI) BUN 14 8 - 25 mg/dL [facility] (VASHTI) Creatinine 0.30(L) 0.60 - 1.10 mg/dL [facility] (VASHTI) Glucose 143 70 - 199 mg/dL [facility] (VASHTI) Comment: Interpretive Data Fasting glucose [...] interpretive data was last revised 2017. Calcium 8.0(L) 8.5 - 10.3 mg/dL [facility] (VASHTI) Blood specimen (specimen) 10/05/2018 4:06 AM CDT 10/05/2018 4:14 AM CDT Narrative [facility] (VASHTI) - 10/05/2018 4:30 AM CDT us Gio Sewell MD LAB BLOOD ORDERABLES Final Re sult TOMY [facility] (VASHTI) 1 [facility] Department [place] [address] * (ABNORMAL) Hemoglobin A1c (10/05/2018 4:06 AM CDT) Hgb A1C 9.4(H) 4.0 - 5.6 % TOMY [facility] (VASHTI) Estimated Average Glucose 223 mg/dL TOMY [facility] (VASHTI) Comment: The ADA recommends reporting an estimated Average Glucose (eAG) with all Hemoglobin A1c results using the equation derived from a study of 507 normal and diabetic adults. ??Minority populations were underrepresented and children were not included. ?? (Diabetes Care 31:2586-7248, 2008). ??The eAG is not equivalent to a fasting glucose. Blood specimen (specimen) 10/05/2018 4:06 AM CDT 10/05/2018 4:14 AM CDT Narrative TOMY SAHU (VASHTI) - 10/05/2018 5:06 AM CDT Ernestine Cisneros MD LAB BLOOD ORDERABLES Fin al Result Performing Organization Address City/[facility]/ZIP Co de Phone Number TOMY SAHU (VASHTI) 1 [facility] [place] [address] * (ABNORMAL) POCT glucose (10/05/2018 4:00 AM CDT) Glucose, POC 131(H) 71 - 98 mg/dL [facility] (NANCY) Blood specimen (specimen) 10/05/2018 4:00 AM CDT 10/05/2018 4:00 AM CDT Narrative TOMY SAHU (VASHTI) - 10/05/2018 4:20 AM CDT Ernestine Cisneros MD LAB POCT ORDERABLES - DE VICE Final Result Performing Organization Address [facility] Co de Phone Number TOMY SAHU (NANCY) [address] [place] [address] [place] [address] * (ABNORMAL) POCT glucose (10/05/2018 3:00 AM CDT) Glucose, POC 158(H) 71 - 98 mg/dL TOMY SAHU (NANCY) Blood specimen (specimen) 10/05/2018 3:00 AM CDT 10/05/2018 3:00 AM CDT Narrative TOMY SAHU (VASHTI) - 10/05/2018 3:19 AM CDT Ernestine Cisneros MD LAB POCT ORDERABLES - DE VICE Final Result Performing Organization Address City/[facility]/ZIP Co de Phone Number TOMY SAHU (NANCY) 1 [facility] [place] [address] * (ABNORMAL) POCT glucose (10/05/2018 1:57 AM CDT) Glucose, POC 184(H) 71 - 98 mg/dL TOMY SAHU (NANCY) Blood specimen (specimen) 10/05/2018 1:57 AM CDT 10/05/2018 1:57 AM CDT Narrative TOMY SAHU (VASHTI) - 10/05/2018 2:03 AM CDT Ernestine Cisneros MD LAB POCT ORDERABLES - DE VICE Final Result Performing Organization Address [facility]/ZIP Co de Phone Number TOMY SAHU (NANCY) 1 [facility] [place] [address] * (ABNORMAL) POCT glucose (10/05/2018 1:07 AM CDT) Glucose, POC 209(H) 71 - 98 mg/dL [facility] (NANCY) Blood specimen (specimen) 10/05/2018 1:07 AM CDT 10/05/2018 1:07 AM CDT Narrative TOMY SAHU (NANCY) - 10/05/2018 1:15 AM CDT Ernestine Cisneros MD LAB POCT ORDERABLES - DE VICE Final Result Performing Organization Address [facility] Co de Phone Number TOMY SAHU (NANCY) 1 [facility] [place] [address] * eGFR (10/05/2018 12:12 AM CDT) eGFR 147 mL/min/1.7 3 m2 TOMY SAHU (NANCY) Comment: Interpretive Data Reference Interval Normal ?>/= 90 mL/min/1.73m2 Mildly decreased* ? 60 - 89 mL/min/1.73m2 Mildly to moderately decreased ?45 - 59 mL/min/1.73m2 Moderately to severely decreased ??30 - 44 mL/min/1.73m2 Severely decreased ?15 - 29 mL/min/1.73m2 Kidney Failure ?< 15 ??mL/min/1.73m2 *Relative to young adult level If -[place] multiply value by 1.16. Estimated glomerular filtration [...] was last reviewed 2015. Blood specimen (specimen) 10/05/2018 12:12 AM CDT 10/05/2018 12:31 AM CDT Narrative [facility] (VASHTI) - 10/05/2018 1:12 AM CDT us Gio Sewell MD LAB BLOOD ORDERABLES Final Re sult TOMY [facility] (VASHTI) 1 [facility] Department [place] [address] * (ABNORMAL) Basic metabolic panel (10/05/2018 12:12 AM CDT) Sodium 135 135 - 145 mmol/L [facility] (VASHTI) Potassium, pl 3.4 3.3 - 4.9 mmol/L [facility] (VASHTI) Chloride 102 97 - 110 mmol/L [facility] (VASHTI) CO2 15(L) 22 - 32 mmol/L [facility] (VASHTI) Anion gap 18(H) 2 - 15 mmol/L [facility] (VASHTI) BUN 15 8 - 25 mg/dL [facility] (VASHTI) Creatinine 0.41(L) 0.60 - 1.10 mg/dL [facility] (VASHTI) Glucose 200(H) 70 - 199 mg/dL [facility] (VASHTI) [...] Calcium 8.5 8.5 - 10.3 mg/dL [facility] (VASHTI) Blood specimen (specimen) 10/05/2018 12:12 AM CDT 10/05/2018 12:31 AM CDT Narrative [facility] (VASHTI) - 10/05/2018 1:12 AM CDT us Gio Sewell MD LAB BLOOD ORDERABLES Final Re sult TOMY SAHU (VASHTI) 1 [facility] [place] [address] * (ABNORMAL) POCT glucose (10/05/2018 12:06 AM CDT) Glucose, POC 163(H) 71 - 98 mg/dL TOMY SAHU (VASHTI) Blood specimen (specimen) 10/05/2018 12:06 AM CDT 10/05/2018 12:06 AM CDT Narrative [facility] (VASHTI) - 10/05/2018 12:22 AM CDT us Ernestine Cisneros MD LAB POCT ORDERABLES - DE VICE Final Result TOMY SAHU (VASHTI) 1 [facility] [place] [address] * (ABNORMAL) POCT glucose (10/04/2018 11:03 PM CDT) Glucose, POC 130(H) 71 - 98 mg/dL TOMY SAHU (VASHTI) Blood specimen (specimen) 10/04/2018 11:03 PM CDT 10/04/2018 11:03 PM CDT Narrative [facility] (VASHTI) - 10/04/2018 11:23 PM CDT Ernestine Cisneros MD LAB POCT ORDERABLES - DE VICE Final Result Performing Organization Address [facility]/ZIP Co de Phone Number TOMY SAHU (NANCY) 1 [facility] [place] [address] * (ABNORMAL) POCT glucose (10/04/2018 10:05 PM CDT) Glucose, POC 126(H) 71 - 98 mg/dL TOMY SAHU (NANCY) Blood specimen (specimen) 10/04/2018 10:05 PM CDT 10/04/2018 10:05 PM CDT Narrative TOMY SAHU (VASHTI) - 10/04/2018 10:12 PM CDT us Ernestine Cisneros MD LAB POCT ORDERABLES - DE VICE Final Result Performing Organization Address [facility] Co de Phone Number TOMY SAHU (NANCY) 1 [facility] [place] [address] * (ABNORMAL) POCT glucose (10/04/2018 8:57 PM CDT) Glucose, POC 173(H) 71 - 98 mg/dL TOMY SAHU (VASHTI) Blood specimen (specimen) 10/04/2018 8:57 PM CDT 10/04/2018 8:57 PM CDT Narrative [facility] (VASHTI) - 10/04/2018 9:17 PM CDT us Ernestine Cisneros MD LAB POCT ORDERABLES - DE VICE Final Result TOMY SAHU (VASHTI) 1 [facility] Department [place] [address] * eGFR (10/04/2018 8:39 PM CDT) eGFR 142 mL/min/1.7 3 m2 TOMY SAHU (NANCY) Comment: Interpretive Data Reference Interval Normal ?>/= 90 mL/min/1.73m2 Mildly decreased* ? 60 - 89 mL/min/1.73m2 Mildly to moderately decreased ?45 - 59 mL/min/1.73m2 Moderately to severely decreased ??30 - 44 mL/min/1.73m2 Severely decreased ?15 - 29 mL/min/1.73m2 Kidney Failure ?< 15 ??mL/min/1.73m2 *Relative to young adult level If -[place] multiply value by 1.16. Estimated glomerular filtration [...] was last reviewed 2015. Blood specimen (specimen) 10/04/2018 8:39 PM CDT 10/04/2018 8:42 PM CDT Narrative TOMY LUQUE) - 10/04/2018 9:00 PM CDT us Ernestine Cisneros MD LAB BLOOD ORDERABLES Fin al Result TOMY SAHU (VASHTI) 1 [facility] Department [place] [address] * (ABNORMAL) Phosphorus (10/04/2018 8:39 PM CDT) Phosphorus, pl 2.2(L) 2.3 - 4.5 mg/dL [facility] (VASHTI) Blood specimen (specimen) 10/04/2018 8:39 PM CDT 10/04/2018 8:42 PM CDT Narrative [facility] (VASHTI) - 10/04/2018 9:00 PM CDT Ernestine Cisneros MD LAB BLOOD ORDERABLES Fin al Result TOMY [facility] (VASHTI) [address] [place] [address] [place] [address] * Magnesium (10/04/2018 8:39 PM CDT) Pathologist [facility] Magnesium 1.9 1.6 - 2.4 mg/dL [facility] (VASHTI) Blood specimen (specimen) 10/04/2018 8:39 PM CDT 10/04/2018 8:42 PM CDT Narrative [facility] (VASHTI) - 10/04/2018 9:00 PM CDT Ernestine Cisneros MD LAB BLOOD ORDERABLES Fin al Result TOMY SA[facility] (VASHTI) [address] [place] [address] [place] [address] * (ABNORMAL) Basic metabolic panel (10/04/2018 8:39 PM CDT) Sodium 134(L) 135 - 145 mmol/L [facility] (VASHTI) Potassium, pl 3.0(C) 3.3 - 4.9 mmol/L [facility] (VASHTI) Comment:Critical Result call ed to and read back by rito olivera [facility], DATE: 2018-10-04 21:00:28 BY: ryan tilley Chloride 101 97 - 110 mmol/L [facility] (VASHTI) CO2 15(L) 22 - 32 mmol/L [facility] (VASTHI) Anion gap 18(H) 2 - 15 mmol/L [facility] (VASHTI) BUN 15 8 - 25 mg/dL TOMY [facility] (VASHTI) Creatinine 0.45(L) 0.60 - 1.10 mg/dL [facility] (VASHTI) Glucose 173 70 - 199 mg/dL TOYM [facility] (VASHTI) Comment: Interpretive Data Fasting glucose [...] 2017. Calcium 8.6 8.5 - 10.3 mg/dL TOMY SA[facility] (VASHTI) Blood specimen (specimen) 10/04/2018 8:39 PM CDT 10/04/2018 8:42 PM CDT Narrative TOMY SAHU (VASHTI) - 10/04/2018 9:00 PM CDT Ernestine Cisneros MD LAB BLOOD ORDERABLES Fin al Result TOMY SAHU (VASHTI) 1 [facility] Department [place] [address] * (ABNORMAL) POCT glucose (10/04/2018 7:58 PM CDT) [facility] Signature Glucose, POC 148(H) 71 - 98 mg/dL TOMY SAHU (VASHTI) Blood specimen (specimen) 10/04/2018 7:58 PM CDT 10/04/2018 7:58 PM CDT Narrative TOMY [facility] (VASHTI) - 10/04/2018 8:30 PM CDT Ernestine Cisneros MD LAB POCT ORDERABLES - DE VICE Final Result TOMY SAHU (VASHTI) 1 [facility] [place] [address] * (ABNORMAL) POCT glucose (10/04/2018 6:52 PM CDT) Glucose, POC 132(H) 71 - 98 mg/dL TOMY [facility] (VASHTI) Blood specimen (specimen) 10/04/2018 6:52 PM CDT 10/04/2018 6:52 PM CDT Narrative TOMY SAHU (VASHTI) - 10/04/2018 6:54 PM CDT Ernestine Cisneros MD LAB POCT ORDERABLES - DE VICE Final Result Performing Organization Address City/[facility]/ZIP Co de Phone Number TOMY SAHU (NANCY) [address] [place] [address] [place] [address] * (ABNORMAL) POCT glucose (10/04/2018 5:56 PM CDT) Glucose, POC 110(H) 71 - 98 mg/dL TOMY SAHU (NANCY) Blood specimen (specimen) 10/04/2018 5:56 PM CDT 10/04/2018 5:56 PM CDT Narrative TOMY SAHU (VASHTI) - 10/04/2018 5:57 PM CDT Ernestine Cisneros MD LAB POCT ORDERABLES - DE VICE Final Result TOMY SAHU (NANCY) 1 [facility] [place] [address] * (ABNORMAL) POCT glucose (10/04/2018 5:03 PM CDT) Glucose, POC 143(H) 71 - 98 mg/dL TOMY SAHU (NANCY) Blood specimen (specimen) 10/04/2018 5:03 PM CDT 10/04/2018 5:03 PM CDT Narrative TOMY SAHU (VASHTI) - 10/04/2018 5:05 PM CDT Ernestine Cisneros MD LAB POCT ORDERABLES - DE VICE Final Result Performing Organization Address [facility] Co de Phone Number TOMY SAHU (VASHTI) [address] [facility] [place] [address] * (ABNORMAL) POCT glucose (10/04/2018 4:10 PM CDT) Glucose, POC 138(H) 71 - 98 mg/dL TOMY SAHU (NANCY) Blood specimen (specimen) 10/04/2018 4:10 PM CDT 10/04/2018 4:10 PM CDT Narrative TOMY SAHU (VASHTI) - 10/04/2018 4:11 PM CDT Ernestine Cisneros MD LAB POCT ORDERABLES - DE VICE Final Result Performing Organization Address [facility] Co de Phone Number TOMY SAHU (NANCY) 1 [facility] [place] [address] * eGFR (10/04/2018 3:58 PM CDT) eGFR 143 mL/min/1.7 3 m2 TOMY SAHU (VASHTI) Comment: Interpretive Data Reference Interval Normal ?>/= 90 mL/min/1.73m2 Mildly decreased* ? 60 - 89 mL/min/1.73m2 Mildly to moderately decreased ?45 - 59 mL/min/1.73m2 Moderately to severely decreased ??30 - 44 mL/min/1.73m2 Severely decreased ?15 - 29 mL/min/1.73m2 Kidney Failure ?< 15 ??mL/min/1.73m2 *Relative to young adult level If -[place] multiply value by 1.16. Estimated glomerular filtration [...] was last reviewed 2015. Blood specimen (specimen) 10/04/2018 3:58 PM CDT 10/04/2018 4:16 PM CDT Narrative TOMY SAHU (VASHTI) - 10/04/2018 4:32 PM CDT Ernestine Cisneros MD LAB BLOOD ORDERABLES Fin al Result Performing Organization Address City/[facility]/ZIP Co de Phone Number TOMY SAHU (VASHTI) [address] [place] [address] [address] [place] [address] * Phosphorus (10/04/2018 3:58 PM CDT) Phosphorus, pl 2.3 2.3 - 4.5 mg/dL [facility] (VASHTI) Blood specimen (specimen) 10/04/2018 3:58 PM CDT 10/04/2018 4:16 PM CDT Narrative [facility] (VASHTI) - 10/04/2018 4:32 PM CDT Ernestine Cisneros MD LAB BLOOD ORDERABLES Fin al Result TOMY SAHU (NANCY) 1 [facility] [place] [address] * Magnesium (10/04/2018 3:58 PM CDT) Magnesium 1.8 1.6 - 2.4 mg/dL TOMY SAHU (NANCY) Blood specimen (specimen) 10/04/2018 3:58 PM CDT 10/04/2018 4:16 PM CDT Narrative [facility] (VASHTI) - 10/04/2018 4:32 PM CDT us Ernestine Cisneros MD LAB BLOOD ORDERABLES Fin al Result TOMY SAHU (VASHTI) 1 [facility] Department [place] [address] * (ABNORMAL) Basic metabolic panel (10/04/2018 3:58 PM CDT) Sodium 135 135 - 145 [...] mg/dL [facility] (VASHTI) Blood specimen (specimen) 10/04/2018 3:58 PM CDT 10/04/2018 4:16 PM CDT Narrative [facility] (VASHTI) - 10/04/2018 4:32 PM CDT Ernestine Cisneros MD LAB BLOOD ORDERABLES Fin al Result Performing Organization Address City/[facility]/ZIP Co de Phone Number TOMY SAHU (NANCY) 1 [place] [address] * (ABNORMAL) POCT glucose (10/04/2018 2:51 PM CDT) Glucose, POC 148(H) 71 - 98 mg/dL TOMY SAHU (NANCY) Blood specimen (specimen) 10/04/2018 2:51 PM CDT 10/04/2018 2:51 PM CDT Narrative TOMY SAHU (NANCY) - 10/04/2018 2:52 PM CDT us Ernestine Cisneros MD LAB POCT ORDERABLES - DE VICE Final Result Performing Organization Address [facility] Co de Phone Number TOMY SAHU (NANCY) 1 [facility] [place] [address] * (ABNORMAL) POCT glucose (10/04/2018 1:49 PM CDT) Glucose, POC 180(H) 71 - 98 mg/dL TOMY [facility] (NANCY) Blood specimen (specimen) 10/04/2018 1:49 PM CDT 10/04/2018 1:49 PM CDT Narrative TOMY SAHU (NANCY) - 10/04/2018 1:51 PM CDT Ernestine Cisneros MD LAB POCT ORDERABLES - DE VICE Final Result TOMY SAHU (NANCY) 1 [facility] [place] [address] * (ABNORMAL) POCT glucose (10/04/2018 12:54 PM CDT) Glucose, POC 158(H) 71 - 98 mg/dL TOMY [facility] (NANCY) Blood specimen (specimen) 10/04/2018 12:54 PM CDT 10/04/2018 12:54 PM CDT Narrative TOMY SAHU (VASHTI) - 10/04/2018 12:56 PM CDT us Ernestine Cisneros MD LAB POCT ORDERABLES - DE VICE Final Result Performing Organization Address [facility] Co de Phone Number TOMY SAHU (NANCY) 1 [facility] [place] [address] * (ABNORMAL) POCT glucose (10/04/2018 12:08 PM CDT) [facility] Glucose, POC 164(H) 71 - 98 mg/dL TOMY [facility] (NANCY) Blood specimen (specimen) 10/04/2018 12:08 PM CDT 10/04/2018 12:08 PM CDT Narrative TOMY SAHU (NANCY) - 10/04/2018 12:10 PM CDT us Ernestine Cisneros MD LAB POCT ORDERABLES - DE VICE Final Result Performing Organization Address [facility] de Phone Number TOMY SAHU (NANCY) [address] [place] [address] [place] [address] * eGFR (10/04/2018 11:00 AM CDT) Pathologist [facility] eGFR 139 mL/min/1.7 3 m2 [facility] (NANCY) Comment: Interpretive Data Reference Interval Normal ?>/= 90 mL/min/1.73m2 Mildly decreased* ? 60 - 89 mL/min/1.73m2 Mildly to moderately decreased ?45 - 59 mL/min/1.73m2 Moderately to severely decreased ??30 - 44 mL/min/1.73m2 Severely decreased ?15 - 29 mL/min/1.73m2 Kidney Failure ?< 15 ??mL/min/1.73m2 *Relative to young adult level If -[place] multiply value by 1.16. Estimated glomerular filtration [...] was last reviewed 2015. Blood specimen (specimen) 10/04/2018 11:00 AM CDT 10/04/2018 11:02 AM CDT Narrative TOMY SAHU (VASHTI) - 10/04/2018 11:53 AM CDT Ernestine Cisneros MD LAB BLOOD ORDERABLES Fin al Result Performing Organization Address [facility] de Phone Number TOMY SAHU (NANCY) 1 [facility] [place] [address] * Phosphorus (10/04/2018 11:00 AM CDT) [facility] Signature Phosphorus, pl 2.7 2.3 - 4.5 mg/dL TOMY LUIS ALBERTO (VASHTI) Blood specimen (specimen) 10/04/2018 11:00 AM CDT 10/04/2018 11:02 AM CDT Narrative TOMY SAHU (VASHTI) - 10/04/2018 11:53 AM CDT Ernestine Cisneros MD LAB BLOOD ORDERABLES Fin al Result TOMY SAHU (VASHTI) 1 [facility] [place] [address] * Magnesium (10/04/2018 11:00 AM CDT) Magnesium 1.7 1.6 - 2.4 mg/dL [facility] (VASHTI) Blood specimen (specimen) 10/04/2018 11:00 AM CDT 10/04/2018 11:02 AM CDT Narrative [facility] (VASHTI) - 10/04/2018 11:53 AM CDT Ernestine Cisneros MD LAB BLOOD ORDERABLES Fin al Result [facility] (VASHTI) 1 [facility] Department [place] [address] * (ABNORMAL) Basic metabolic panel (10/04/2018 11:00 AM CDT) Sodium 136 135 - 145 mmol/L [facility] (VASHTI) Potassium, pl 4.0 3.3 - 4.9 mmol/L [facility] (VASHTI) Chloride 102 97 - 110 mmol/L [facility] (VASHTI) CO2 11(L) 22 - 32 mmol/L [facility] (VASHTI) Anion gap 23(H) 2 - 15 mmol/L [facility] (VASHTI) BUN 14 8 - 25 mg/dL [facility] (VASHTI) Creatinine 0.48(L) 0.60 - 1.10 mg/dL [facility] (VASHTI) Glucose 317(H) 70 - 199 mg/dL [facility] (VASHTI) Comment: Interpretive Data Fasting [...] 2017. Calcium 8.9 8.5 - 10.3 mg/dL [facility] (VASHTI) Blood specimen (specimen) 10/04/2018 11:00 AM CDT 10/04/2018 11:02 AM CDT Narrative TOMY SAHU (VASHTI) - 10/04/2018 11:53 AM CDT Ernestine Cisneros MD LAB BLOOD ORDERABLES Fin al Result TOMY SAHU (VASHTI) [address] [place] [address] [place] [address] * Lactate (10/04/2018 11:00 AM CDT) Lactate 1.6 0.7 - 2.0 mmol/L TOMY LUIS ALBERTO (VASHTI) Blood specimen (specimen) 10/04/2018 11:00 AM CDT 10/04/2018 11:02 AM CDT Narrative TOMY LUIS ALBERTO (VASHTI) - 10/04/2018 11:05 AM CDT Ernestine Cisneros MD LAB BLOOD ORDERABLES Fin al Result Performing Organization Address [facility] Co de Phone Number TOMY SAHU (NANCY) [address] [place] [address] * (ABNORMAL) Beta-hydroxybutyrate (10/04/2018 11:00 AM CDT) Beta-Hydroxybu tyrate 4.2(H) <=0.5 mmol/L TOMY SAHU (VASHTI) Comment:Testing performed by : [facility], [address] [place] [address], [place] [address] Blood specimen (specimen) 10/04/2018 11:00 AM CDT 10/04/2018 1:31 PM CDT Narrative ASHLEYTOSHA LUIS ALBERTO (VASHTI) - 10/04/2018 5:47 PM CDT Ernestine Cisneros MD LAB BLOOD ORDERABLES Fin al Result TOMY SAHU (VASHTI) 1 [facility] [place] [address] * (ABNORMAL) POCT glucose (10/04/2018 10:54 AM CDT) [facility] Glucose, POC 292(H) 71 - 98 mg/dL [facility] (VASHTI) Blood specimen (specimen) 10/04/2018 10:54 AM CDT 10/04/2018 10:54 AM CDT Narrative TOMY SAHU (NANCY) - 10/04/2018 10:55 AM CDT us Ernestine Cisneros MD LAB POCT ORDERABLES - DE VICE Final Result TOMY SAHU (NANCY) 1 [facility] [place] [address] * (ABNORMAL) POCT glucose (10/04/2018 9:52 AM CDT) [facility] Glucose, POC 340(C) 71 - 98 mg/dL TOMY [facility] (NANCY) Blood specimen (specimen) 10/04/2018 9:52 AM CDT 10/04/2018 9:52 AM CDT Narrative TOMY SAHU (VASHTI) - 10/04/2018 10:12 AM CDT us Ernestine Cisneros MD LAB POCT ORDERABLES - DE VICE Final Result TOMY SAHU (NANCY) 1 [facility] [place] [address] * (ABNORMAL) Sepsis Lactate w/ Reflex (10/04/2018 8:48 AM CDT) [facility] Sepsis Lactate 2.1(H) 0.7 - 2.0 mmol/L TOMY SAHU (NANCY) Blood specimen (specimen) 10/04/2018 8:48 AM CDT 10/04/2018 8:51 AM CDT Narrative TOMY SAHU (VASHTI) - 10/04/2018 8:53 AM CDT Boubacar Harrison MD LAB BLOOD ORDERABLES Final Re sult Performing Organization Address [facility]/ZIP Co de Phone Number TOMY SAHU (NANCY) 1 [facility] [place] [address] * (ABNORMAL) POCT glucose (10/04/2018 8:09 AM CDT) [facility] Glucose, POC 358(C) 71 - 98 mg/dL TOMY SAHU (NANCY) Blood specimen (specimen) 10/04/2018 8:09 AM CDT 10/04/2018 8:09 AM CDT Narrative TOMY SAHU (NANCY) - 10/04/2018 8:10 AM CDT Ernestine Cisneros MD LAB POCT ORDERABLES - DE VICE Final Result Performing Organization Address [facility] Co de Phone Number TOMY SAHU (NANCY) [address] [place] [address] [place] [address] * (ABNORMAL) Sepsis Lactate w/ Reflex (10/04/2018 5:04 AM CDT) [facility] Sepsis Lactate 2.4(H) 0.7 - 2.0 mmol/L TOMY SAHU (NANCY) Blood specimen (specimen) 10/04/2018 5:04 AM CDT 10/04/2018 5:09 AM CDT Narrative TOMY SAHU (NANCY) - 10/04/2018 5:14 AM CDT Boubacar Harrison MD LAB BLOOD ORDERABLES Final Re sult Performing Organization Address City/[facility]/ZIP Co de Phone Number TOMY SAHU (NANCY) 1 [facility] [place] [address] * (ABNORMAL) Urinalysis reflex to microscopic and culture Urine (10/04/2018 4:22 AM CDT) Color, ur Yellow Yellow [facility] (VASHTI) Clarity, ur Clear Clear [facility] (VASHTI) Specific gravity, ur 1.029(H) 1.010 - 1.025 [facility] (VASHTI) pH, [...] ur Negative Negative [facility] (VASHTI) Urine 10/04/2018 4:22 AM CDT 10/04/2018 4:25 AM CDT Narrative [facility] (VASHTI) - 10/04/2018 4:29 AM CDT ?? Urine pH is affected by diet, medications, systemic acid-base disturbances, and renal tubular function. ??pH may affect urinary stone formation. ??For example, urine pH below 6.0 may help reduce the tendency for calcium phosphate stones and pH greater than 6.0 may reduce the tendency for uric acid stone formation. Source: [facility] [employer]. Last revised 05-13-2017 Boubacar Harrison MD LAB MICROBIOLOGY - GENERAL OR DERABLES Final Result TOMY [facility] (VASHTI) 1 [facility] Department [place] [address] * Blood culture Blood Wrist, right (10/04/2018 3:33 AM CDT) Report Final Report: No growth [facility] (VASHTI) Comment:Testing performed by : [facility], [address] [facility], [place]., [address] Blood specimen (specimen) (Wrist, right) 10/04/2018 3:33 AM CDT 10/04/2018 7:27 AM CDT Narrative TOMY SAHU ENE) - 10/09/2018 12:02 PM CDT From a different site than #1. Draw Blood cultures before administration of Antibiotics 1. Blood cultures are incubated for 5 days on a continuously monitored blood culture system. The first report of a negative culture is issued within 24 hours of receipt of the specimen in the laboratory. 2. Positive culture results are reported as soon as they are detected. 3. The most important factor for detection of microbes [...] recommended for each blood culture set. 4. For blood cultures with Gram-positive cocci, a rapid molecular test for organism identification may be performed using the [employer] Gram-Positive Blood Culture Assay. This assay detects microbial DNA in positive blood culture broth via hybridization of target DNA to capture oligonucleotides on a microarray. This assay has been cleared by the [place] Food and Drug Administration and its performance characteristics have been verified by the [facility] Microbiology Laboratory. 5. For questions about this culture, contact the Microbiology Laboratory at [phone]. Interpretive data was last revised on 2018. Boubacar Harrison MD LAB MICROBIOLOGY - GENERAL OR DERABLES Final Result TOMY SAHU ZULMAN) 1 [facility] Department [place] [address] * (ABNORMAL) Sepsis Lactate w/ Reflex (10/04/2018 3:33 AM CDT) Sepsis Lactate 3.0(H) 0.7 - 2.0 mmol/L TOMY SAHU (VASHTI) Blood specimen (specimen) 10/04/2018 3:33 AM CDT 10/04/2018 3:36 AM CDT Narrative TOMY SAHU (VASHTI) - 10/04/2018 3:39 AM CDT Boubacar Harrison MD LAB BLOOD ORDERABLES Final Re sult TOMY LUQUE) 1 [facility] Department [place] [address] * eGFR (10/04/2018 3:25 AM CDT) eGFR 139 mL/min/1.7 3 m2 TOMY SAHU (VASHTI) Comment: Interpretive Data Reference Interval Normal ?>/= 90 mL/min/1.73m2 Mildly decreased* ? 60 - 89 mL/min/1.73m2 Mildly to moderately decreased ?45 - 59 mL/min/1.73m2 Moderately to severely decreased ??30 - 44 mL/min/1.73m2 Severely decreased ?15 - 29 mL/min/1.73m2 Kidney Failure ?< 15 ??mL/min/1.73m2 *Relative to young adult level If -[place] multiply value by 1.16. Estimated glomerular filtration [...] was last reviewed 2015. Blood specimen (specimen) 10/04/2018 3:25 AM CDT 10/04/2018 3:36 AM CDT Narrative TOMY LUQUE) - 10/04/2018 4:43 AM CDT Boubacar Harrison MD LAB BLOOD ORDERABLES Final Re sult TOMY SAHU (VASHTI) 1 [facility] Department [place] [address] * (ABNORMAL) Differential, auto (10/04/2018 3:25 AM CDT) Neutrophil abs 8.3(H) 1.7 - 6.5 K/cumm [facility] (VASHTI) Imm gran abs 0.1 0.0 - 0.1 K/cumm [facility] (VASHTI) Lymphocyte abs 0.6(L) 0.8 - 3.3 K/cumm [facility] (VASHTI) Monocyte abs 0.7 0.2 - 0.8 K/cumm [facility] (VASHTI) Eosinophil abs 0.0 0.0 - 0.5 K/cumm [facility] (VASHTI) Basophil abs 0.0 0.0 - 0.1 K/cumm [facility] (VASHTI) Neutrophil pct 86.0 % [facility] (VASHTI) Comment: Interpretive [...] was last revised on 2017. Lymphocyte pct 6.0 % [facility] (VASHTI) Comment: Interpretive Data Percent cell count reference ranges are not reported, since discordance with absolute values may lead to misinterpretation of CBC data. Current Interpretive Data was last revised on 2017. Monocyte pct 6.9 % [facility] (VASHTI) Comment: Interpretive Data [...] revised on 2017. Basophil pct 0.3 % TOMY LUQUE) Comment: Interpretive Data Percent cell count reference ranges are not reported, since discordance with absolute values may lead to misinterpretation of CBC data. Current Interpretive Data was last revised on 2017. Blood specimen (specimen) 10/04/2018 3:25 AM CDT 10/04/2018 3:36 AM CDT Narrative TOMY OwensVASHTI) - 10/04/2018 3:38 AM CDT us Boubacar Harrison MD LAB BLOOD ORDERABLES Final Re sult TOMY wOensVASHTI) 1 [facility] Department [place] [address] * Blood culture Blood Peripheral (10/04/2018 3:25 AM CDT) Report Final Report: No growth TOMY OwensVASHTI) Comment:Testing performed by : [facility], 1 [facility] [place] [address] Blood specimen (specimen) (Peripheral) 10/04/2018 3:25 AM CDT 10/04/2018 7:26 AM CDT Moriah SAHU ENE) - 10/09/2018 12:02 PM CDT Draw Blood cultures before administration of Antibiotics 1. Blood cultures are incubated for 5 days on a continuously monitored blood culture system. The first report of a negative culture is issued within 24 hours of receipt of the specimen in the laboratory. 2. Positive culture results are reported as soon as they are detected. 3. The most important factor for detection of microbes [...] recommended for each blood culture set. 4. For blood cultures with Gram-positive cocci, a rapid molecular test for organism identification may be performed using the [employer] Gram-Positive Blood Culture Assay. This assay detects microbial DNA in positive blood culture broth via hybridization of target DNA to capture oligonucleotides on a microarray. This assay has been cleared by the [place] Food and Drug Administration and its performance characteristics have been verified by the [facility] Microbiology Laboratory. 5. For questions about this culture, contact the Microbiology Laboratory at [phone]. Interpretive data was last revised on 2018. us Boubacar Harrison MD LAB MICROBIOLOGY - GENERAL OR DERABLES Final Result Performing Organization Address City/[facility]/ZIP Co de Phone Number TOMY SAHU (VASHTI) 1 [facility] [place] [address] * Lipase (10/04/2018 3:25 AM CDT) Pathologist [facility] Lipase 11 10 - 99 Units/L [facility] (VASHTI) Blood specimen (specimen) 10/04/2018 3:25 AM CDT 10/04/2018 3:36 AM CDT Narrative [facility] (VASHTI) - 10/04/2018 4:43 AM CDT us Boubacar Harrison MD LAB BLOOD ORDERABLES Final Re sult Performing Organization Address [facility]/ZIP Co de Phone Number TOMY SAHU (VASHTI) [address] [facility] [place] [address] * (ABNORMAL) Comprehensive metabolic panel (10/04/2018 3:25 AM CDT) Pathologist [facility] Sodium 137 135 - 145 mmol/L [facility] (VASHTI) Potassium, pl 3.9 3.3 - 4.9 mmol/L [facility] (VASHTI) Chloride 98 97 - 110 mmol/L [facility] (VASHTI) CO2 17(L) 22 - 32 mmol/L [facility] (VASHTI) Anion gap 22(H) 2 - 15 mmol/L [facility] (VASHTI) BUN 18 8 - 25 mg/dL [facility] (VASHTI) Creatinine 0.48(L) 0.60 - 1.10 mg/dL [facility] (VASHTI) Glucose 417(H) 70 - 199 mg/dL [facility] (VASHTI) [...] Units/L [facility] (VASHTI) Blood specimen (specimen) 10/04/2018 3:25 AM CDT 10/04/2018 3:36 AM CDT Narrative [facility] (VASHTI) - 10/04/2018 4:54 AM CDT us Boubacar Harrison MD LAB BLOOD ORDERABLES Final Re sult [facility] (VASHTI) 1 [facility] Department [place] [address] * CBC with auto differential (10/04/2018 3:25 AM CDT) WBC 9.6 3.8 - 9.9 K/cumm [facility] (VASHTI) Hgb 14.5 11.9 - 15.5 g/dL [facility] (VASHTI) Hct 41.7 35.6 - 45.5 % [facility] (VASHTI) Plt 341 150 - 400 K/cumm [facility] (VASHTI) MPV 9.3 9.1 - 12.3 fL [facility] (VASHTI) RBC 5.13 3.90 - 5.20 M/cumm [facility] (VASHTI) MCV 81.3 81.3 - 96.4 fL [facility] (VASHTI) MCH 28.3 27.1 - 33.3 pg [facility] (VASHTI) MCHC 34.8 32.3 - 35.7 g/dL [facility] (VASHTI) RDW CV 14.6 11.1 - 14.9 % [facility] (VASHTI) RDW SD 43.2 35.7 - 48.1 fL [facility] (VASHTI) NRBC abs 0.00 0.00 - 0.01 K/cumm [facility] (VASHTI) Blood specimen (specimen) 10/04/2018 3:25 AM CDT 10/04/2018 3:36 AM CDT Narrative [facility] (VASHTI) - 10/04/2018 3:38 AM CDT us Boubacar Harrison MD LAB BLOOD ORDERABLES Final Re sult [facility] (VASHTI) 1 [facility] Department [place] [address] * (ABNORMAL) hCG, blood, quantitative (10/04/2018 3:25 AM CDT) hCG, quant 1,694.0(H ) 0.0 - 5.0 IUnits/L [facility] (VASHTI) Comment: Interpretive Data Non- Female premenopausal: < or = 5.0 IUnits/L Men: < 5.0 IUnits/L Weeks of Gestation ? Reference Interval ?? 3 to 6 ? 5.8-31,795 IUnits/L ?? 7 to 10 ? 3,697-186,977 IUnits/L ??12 to 15 ?27,832- 70,791 IUnits/L ??16 to 18 ? 9,040- 58,179 IUnits/L Current Interpretive Data was last revised on 2017. Blood specimen (specimen) 10/04/2018 3:25 AM CDT 10/04/2018 3:36 AM CDT Narrative [facility] (VASHTI) - 10/04/2018 4:43 AM CDT Boubacar Harrison MD LAB BLOOD ORDERABLES Edited R esult - Final Performing Organization Address [facility]/ZIP Co de Phone Number TOMY SAHU (VASHTI) 1 [facility] [address] [place] [address] * (ABNORMAL) Blood gas, arterial (10/04/2018 3:06 AM CDT) pH, Art 7.43 7.35 - 7.45 [facility] (VASHTI) PCO2, Arterial 26(L) 35 - 45 mmHg [facility] (VASHTI) PO2, Arterial 121(H) 83 - 108 mmHg [facility] (VASHTI) HCO3 Art (Calculated) 17(L) 20 - 30 mmol/L [facility] (VASHTI) BE, art -6 mmol/L [facility] (VASHTI) Comment: Interpretive Data No Reference Range Established Current Interpretive Data was last revised on 2017 O2 Sat Art (Measured) 99(H) 90 - 95 % [facility] (VASHTI) Blood specimen (specimen) 10/04/2018 3:06 AM CDT 10/04/2018 3:10 AM CDT Narrative [facility] (VASHTI) - 10/04/2018 3:13 AM CDT Boubacar Harrison MD LAB BLOOD ORDERABLES Final Re sult Performing Organization Address City/[facility]/ZIP Co de Phone Number TOMY SAHU (VASHTI) 1 [facility] [place] [address] documented in this encounter Visit Diagnoses Diagnosis Vomiting and diarrhea- Primary Less than 8 weeks gestation of Less than 8 weeks gestation of documented in this encounter Administered Medications Inactive Administered Medications - up to 3 most recent administrations Medication Order MAR Action Action Date Dose Rate Site dextrose (D10W) 10% bolus 1-500 mL 1-500 mL, intravenous, at 2-2,000 mL/hr, Administer over 15-30 Minutes, As needed, blood glucose less than 70 mg/dL, Starting on Wed10/04/18 at 0837, Dose as determined by GlucoStabilizer dka order. 25 gm = 250 mL 50 gm = 500 mL, Indications: HypoglyemiaIndications:Hypogl yemia dextrose 5% and sodium chloride 0.45% infusion (premix) 100 mL/hr, intravenous, Continuous, Starting on Wed10/04/18 at 1315 New Bag 10/07/2018 11:56 AM CDT 100 mL/hr 100 mL/hr Rate/Dose Verify 10/07/2018 7:30 AM CDT 100 mL/hr 100 mL/ hr Rate/Dose Verify 10/07/2018 4:00 AM CDT 100 mL/hr 100 mL/ hr dextrose 5% and sodium chloride 0.9% infusion (premix) 100 mL/hr, intravenous, Continuous, Starting on Wed10/07/18 at 1245 Rate/Dose Verify 10/07/2018 4:00 PM CDT 100 mL/hr 100 mL/hr New Bag 10/07/2018 12:09 PM CDT 100 mL/hr 100 mL/hr Rate/Dose Verify 10/07/2018 12:00 PM CDT 100 mL/hr 100 mL /hr famotidine (PEPCID) injection 20 mg 20 mg, intravenous, Administer over 2 Minutes, Daily, First dose on Wed10/04/18 at 1000, Dilute to 5 ml with NS and administer IVpush over at least 2 minutes. Given 10/07/2018 8:24 AM CDT 20 mg Given 10/04/2018 9:48 AM CDT 20 mg glucagon injection 1 mg 1 mg, intramuscular, Administer over 1 Minutes, Every 30 min PRN, low blood sugar, blood glucose less than 70 mg/dL AND no IV access AND unable to take PO glucose/jiuce., Starting on Wed10/06/18 at 7, After Glucagon is administered, position patient on [...] HypoglycemiaIndications:Hypoglyc emia insulin glargine (LANTUS,BASAGLAR) pen injection 15 Units 15 Units, subcutaneous, Once, On Wed10/07/18 at 0630, For 1 dose, Do not mix with other insulins Given 10/07/2018 7:34 AM CDT 15 Units Left Upper Arm insulin lispro (HumaLOG) pen injection 1-3 Units 1-3 Units, subcutaneous, Every 24 hours, First dose on Wed10/07/18 at 0200, lood Sugar Mid Dose 02:00 - PO patients 175 or less No insulin 176 - 200 1 unit 201 - 250 2 units 251 - 299 3 units Greater than 299 Call MD for hyperglycemia management instructions Do NOT hold for NPO status., Indications: Diabetes MellitusIndications:Diabetes Mellitus Given 10/07/2018 1:44 AM CDT 2 Units Left Upper Arm insulin lispro (HumaLOG) pen injection 1-5 Units 1-5 Units, subcutaneous, 3 times daily with meals, First dose on Wed10/07/18 at 0800, Blood Sugar Mid Dose meal time - PO patients 139 or less No insulin 140 - 175 1 unit 176 - 200 2 unit 201 - 250 3 units 251 - 299 5 units Greater than 299 Call MD for hyperglycemia management instructions Do NOT hold for NPO status., Indications: Diabetes MellitusIndications:Diabetes Mellitus Given 10/07/2018 10:52 AM CDT 1 Units Left Upper Arm Given 10/07/2018 7:33 AM CDT 3 Units Ri ght Upper Arm insulin regular (HumuLIN R, NovoLIN R) 100 Units in sodium chloride 0.9% 100 mL (1 Units/mL) infusion 0-30 Units/hr (0-30 mL/hr), 1 units/mL, intravenous, Titrated, Starting on Wed10/04/18 at 0915, Until Wed10/06/18 at 2101, Indications: Hyperglycemia, Desired Range (mg/dL): 130-180 general patients, Multiplier: 0.01, Adjust rate per GlucoStabilizer program for dka order When new IV tubing is used, completely prime the tubing. Once primed, waste an additional 20 ml of insulin infusion using the IV pump prior to connecting to patient., RoutineIndications:Hyperglycem ia Rate/Dose Change 10/06/2018 8:42 PM CDT 4 Units/hr 4 mL/hr Rate/Dose Change 10/06/2018 7:55 PM CDT 2.1 Units/hr 2.1 m L/hr Rate/Dose Change 10/06/2018 6:40 PM CDT 2.5 Units/hr 2.5 m L/hr insulin regular (HumuLIN R, NovoLIN R) 100 Units in sodium chloride 0.9% 100 mL (1 Units/mL) infusion 0-30 Units/hr (0-30 mL/hr), 1 units/mL, intravenous, Titrated, Starting on Wed10/07/18 at 1645, Until Wed10/07/18 at 2239, Indications: Hyperglycemia, Desired Range (mg/dL): 130-180 general patients, Multiplier: 0.01, Adjust rate per GlucoStabilizer program for dka order When new IV tubing is used, completely prime the tubing. Once primed, waste an additional 20 ml of insulin infusion using the IV pump prior to connecting to patient., RoutineIndications:Hyperglyc emia Rate/Dose Change 10/07/2018 6:08 PM CDT 3.7 Units/hr 3.7 mL/hr Rate/Dose Change 10/07/2018 5:17 PM CDT 5.8 Units/hr 5.8 m L/hr New Bag 10/07/2018 4:16 PM CDT 4.5 Units/hr 4.5 mL/hr insulin regular (HumuLIN R, NovoLIN R) injection 5 Units 5 Units, intravenous, Once, On Wed10/04/18 at 0446, For 1 dose Given 10/04/2018 4:56 AM CDT 5 Units insulin regular bolus from bag 1-10 Units 1-10 Units, intravenous, As needed, hyperglycemia, Starting on Wed10/07/18 at 1604, Bolus per GlucoStabilizer dka order., Indications: HyperglycemiaIndications:Hype rglycemia ondansetron (ZOFRAN) injection 4 mg 4 mg, intravenous, Administer over 2 Minutes, Once, On [facility] 10/04/18 at 0258, For 1 dose, Indications: Nausea, VomitingIndications:Nausea,Vo miting Given 10/04/2018 3:15 AM CDT 4 mg potassium chloride 40 mEq in sodium chloride 0.9% 500 mL IVPB 40 mEq, intravenous, at 130 mL/hr, Administer over 4 Hours, Once, On [facility] 10/04/18 at 2145, For 1 dose, Indications: hypokalemiaIndications:hypoka lemia New Bag 10/04/2018 10:07 PM CDT 40 mEq 130 mL/hr potassium chloride 40 mEq in sodium chloride 0.9% 500 mL IVPB 40 mEq, intravenous, at 65 mL/hr, Administer over 8 Hours, Once, On [facility] 10/06/18 at 0215, For 1 dose, Indications: hypokalemiaIndications:hypoka lemia New Bag 10/06/2018 1:49 AM CDT 40 mEq 65 mL/hr potassium chloride 40 mEq in sodium chloride 0.9% 500 mL IVPB 40 mEq, intravenous, at 130 mL/hr, Administer over 4 Hours, Once, On Nur[facility] 10/06/18 at 1300, For 1 dose, Potassium chloride 40 meq X 1 dose per pharmacy electrolyte replacement protocol for potassium +=3.2 on 10/06/18 (08:18), Indications: hypokalemiaIndications:hypoka lemia New Bag 10/06/2018 1:23 PM CDT 40 mEq 130 mL/hr prochlorperazine (COMPAZINE) injection 5 mg 5 mg, intravenous, Administer over 2 Minutes, Every 6 hours PRN, nausea, vomiting, Starting on Wed10/04/18 at 0850 sodium chloride 0.45% infusion 150 mL/hr, intravenous, Continuous, Starting on Wed10/04/18 at 0915, Decrease rate to 100 mL/hr when blood glucose less than 250 mg/dL. Rate/Dose Verify 10/04/2018 11:25 AM CDT 150 mL/hr 150 mL/hr Rate/Dose Verify 10/04/2018 10:20 AM CDT 150 mL/hr 150 mL /hr New Bag 10/04/2018 9:36 AM CDT 150 mL/hr 150 mL/hr sodium chloride 0.9% bolus 1,000 mL 1,000 mL, intravenous, at 1,000 mL/hr, Administer over 1 Hours, Once, On Wed10/04/18 at 0258, For 1 dose New Bag 10/04/2018 3:16 AM CDT 1,000 mL 1000 mL/hr sodium chloride 0.9% infusion 250 mL/hr, intravenous, Continuous, Starting on Wed10/04/18 at 0615 New Bag 10/04/2018 5:53 AM CDT 250 mL/hr 250 mL/hr sodium phosphate 25.23 mmol in sodium chloride 0.9% 250 mL IVPB 25.23 mmol (rounded from 25.24 mmol = 0.4 mmol/kg ? 63.1 kg), intravenous, at 43.1 mL/hr, Administer over 6 Hours, Once, On Wed10/07/18 at 0800, For 1 dose, X 1 dose per pharmacy electrolyte replacement protocol for phos=1.7 on 10/07, Px=667, K+=3.7 New Bag 10/07/2018 8:24 AM CDT 25.23 mmo l 43.1 mL/hr documented in this encounter Discontinued Medications Medication Sig Discontinue Reason Start Date End Da te metoclopramide (REGLAN) 5 mg tabletIndications:naus ea Take 1 tablet (5 mg total) by mouth every 8 (eight) hours as needed (nausea). Duplicate order 01/04/2018 10/04/2018 sertraline (ZOLOFT) 50 mg tablet Take 50 mg by mouth daily. Therapy completed 12/31/2017 10/04/2018 insulin glargine (LANTUS,BASAGLAR) 100 unit/mL (3 mL) insulin penIndications:type 1 diabetes mellitus Inject 10 Units under the skin daily. Duplicate order 01/04/2018 10/04/2018 insulin lispro (HumaLOG) 100 unit/mL injectionIndications:t ype 1 diabetes mellitus Inject 1 Units under the skin 3 (three) times a day before meals. Carb ratio 1 unit of humalog per 8 carbs with meals. Stop Taking at Discharge 10/07/2018 ondansetron (ZOFRAN) 4 mg tablet Take 1 tablet (4 mg total) by mouth every 8 (eight) hours as needed for nausea or vomiting. Stop Taking at Discharge 06/02/2018 10/07/2018 metoclopramide (REGLAN) 5 mg tablet Take 1 tablet (5 mg total) by mouth 4 (four) times a day. Stop Taking at Discharge 06/02/2018 10/07/2018 insulin glargine (BASAGLAR KWIKPEN U-100 INSULIN) 100 unit/mL (3 mL) insulin pen Inject 10 Units under the skin nightly Stop Taking at Discharge 05/09/2018 10/07/2018 documented as of this encounter Historical Medications * This list may reflect changes made after this encounter. insulin glargine (BASAGLAR KWIKPEN U-100 INSULIN) 100 unit/mL (3 mL) insulin pen Inject 10 Units under the skin nightly 05/09/2018 10/07/2018 added in this encounter Active and Recently Administered Medications Times are shown in CDT. Scheduled Medication Order 10/05/2018 10/06/2018 10/07/2018 famotidine (PEPCID) injection 20 mg 20 mg, intravenous, Administer over 2 Minutes, Daily, First dose on Wed10/04/18 at 1000, Dilute to 5 ml with NS and administer IVpush over at least 2 minutes. 1127 (Not Given - Provider: Audelia Ceballos RN - Reason: Patient/family refused) 0830 (Not Given - Provider: Nehemiah Chiu RN - Reason: Patient/family refused) 0824 (Given - Provider: Mann Cantu, MARY) insulin glargine (LANTUS,BASAGLAR) pen injection 15 Units (COMPLETED) 15 Units, subcutaneous, Once, On Wed10/07/18 at 0630, For 1 dose, Do not mix with other insulins 0734 (Given - Provider: Mann Cantu, MARY) insulin lispro (HumaLOG) pen injection 1-3 Units (CANCELED) 1-3 Units, subcutaneous, Every 24 hours, First dose on Wed10/07/18 at 0200, lood Sugar Mid Dose 02:00 - PO patients 175 or less No insulin 176 - 200 1 unit 201 - 250 2 units 251 - 299 3 units Greater than 299 Call MD for hyperglycemia management instructions Do NOT hold for NPO status., Indications: Diabetes Mellitus 0144 (Given - Provider: Julieth Baugh RN) insulin lispro (HumaLOG) pen injection 1-5 Units (CANCELED) 1-5 Units, subcutaneous, 3 times daily with meals, First dose on Wed10/07/18 at 0800, Blood Sugar Mid Dose meal time - PO patients 139 or less No insulin 140 - 175 1 unit 176 - 200 2 unit 201 - 250 3 units 251 - 299 5 units Greater than 299 Call MD for hyperglycemia management instructions Do NOT hold for NPO status., Indications: Diabetes Mellitus 0733 (Given - Provider: Mann Cantu, MARY)1052 (Given - Provider: Mann Cantu RN) potassium chloride 40 mEq in sodium chloride 0.9% 500 mL IVPB (COMPLETED) 40 mEq, intravenous, at 65 mL/hr, Administer over 8 Hours, Once, On Wed10/06/18 at 0215, For 1 dose, Indications: hypokalemia 0149 (New Bag - Provider: Dorian Fuller RN) potassium chloride 40 mEq in sodium chloride 0.9% 500 mL IVPB (COMPLETED) 40 mEq, intravenous, at 130 mL/hr, Administer over 4 Hours, Once, On Wed10/06/18 at 1300, For 1 dose, Potassium chloride 40 meq X 1 dose per pharmacy electrolyte replacement protocol for potassium +=3.2 on 10/06/18 (08:18), Indications: hypokalemia 1323 (New Bag - Provider: Nehemiah Chiu RN) sodium phosphate 25.23 mmol in sodium chloride 0.9% 250 mL IVPB (COMPLETED) 25.23 mmol (rounded from 25.24 mmol = 0.4 mmol/kg ? 63.1 kg), intravenous, at 43.1 mL/hr, Administer over 6 Hours, Once, On Wed10/07/18 at 0800, For 1 dose, X 1 dose per pharmacy electrolyte replacement protocol for phos=1.7 on 10/07, Px=952, K+=3.7 0824 (New Bag - Provider: Mann Cantu, MARY) Continuous Medication Order 10/05/2018 10/06/2018 10/07/2018 dextrose 5% and sodium chloride 0.45% infusion (premix) (CANCELED) 100 mL/hr, intravenous, Continuous, Starting on Wed10/04/18 at 1315 0000 (Rate/Dose Verify - Provider: Julieth Baugh RN)0400 (Rate/Dose Verify - Provider: Julieth Baugh RN)0952 (New Bag - Provider: Jazmin Carter, RN)1806 (New Bag - Provider: Audelia Ceballos, RN) 0632 (New Bag - Provider: Delia Welsh, RN)0835 (Rate/Dose Verify - Provider: Nehemiah Chiu, RN)1205 (Rate/Dose Verify - Provider: Nehemiah Chiu, RN)1645 (Rate/Dose Verify - Provider: Nehemiah Chiu, RN)1759 (New Bag - Provider: Nehemiah Chiu RN)2000 (Rate/Dose Verify - Provider: Julieth Baugh RN) 0000 (Rate/Dose Verify - Provider: Julieth Baugh RN)0244 (New Bag - Provider: Julieth Baugh RN)0400 (Rate/Dose Verify - Provider: Julieth Baugh RN)0730 (Rate/Dose Verify - Provider: Mann Cantu RN)1156 (New Bag - Provider: Mann Cantu RN) dextrose 5% and sodium chloride 0.9% infusion (premix) 100 mL/hr, intravenous, Continuous, Starting on Wed10/07/18 at 1245 1200 (Rate/Dose Verify - Provider: Mann Cantu RN)1209 (New Bag - Provider: Mann Cantu RN)1600 (Rate/Dose Verify - Provider: Mann Cantu RN) insulin regular (HumuLIN R, NovoLIN R) 100 Units in sodium chloride 0.9% 100 mL (1 Units/mL) infusion (CANCELED) 0-30 Units/hr (0-30 mL/hr), 1 units/mL, intravenous, Titrated, Starting on Wed10/04/18 at 0915, Until Wed10/06/18 at 2101, Indications: Hyperglycemia, Desired Range (mg/dL): 130-180 general patients, Multiplier: 0.01, Adjust rate per GlucoStabilizer program for dka order When new IV tubing is used, completely prime the tubing. Once primed, waste an additional 20 ml of insulin infusion using the IV pump prior to connecting to patient., Routine 0008 (Rate/Dose Change - Provider: Julieth Baugh RN)0108 (Rate/Dose Change - Provider: Julieth Baugh RN)0159 (Rate/Dose Change - Provider: Julieth Baugh RN)0302 (Rate/Dose Change - Provider: Julieth Baugh RN)0401 (Rate/Dose Change - Provider: Julieth Baugh RN)0506 (Rate/Dose Change - Provider: Julieth Baugh RN)0552 (Rate/Dose Change - Provider: Julieth Baugh RN)0645 (Rate/Dose Change - Provider: Julieth Baugh RN)0805 (Rate/Dose Change - Provider: Audelia Ceballos RN)0923 (Rate/Dose Change - Provider: Jazmin Carter RN)1027 (Rate/Dose Change - Provider: Jazmin Carter RN - Comment: fsbs 154)1149 (Rate/Dose Change - Provider: Audelia Ceballos RN)1356 (Rate/Dose Change - Provider: Audelia Ceballos RN)1540 (Rate/Dose Change - Provider: Audelia Ceballos RN)1705 (Rate/Dose Change - Provider: Audelia Ceballos RN)1804 (Rate/Dose Change - Provider: Audelia Ceballos RN)1805 (New Bag - Provider: Audelia Ceballos RN)1911 (Rate/Dose Change - Provider: Audelia Ceballos RN)2003 (Rate/Dose Change - Provider: Dorian Fuller RN)2109 (Rate/Dose Change - Provider: Dorian Fuller RN)2315 (Rate/Dose Change - Provider: Julieth Baugh RN) 0018 (Rate/Dose Change - Provider: Dorian Fuller RN)0123 (Rate/Dose Change - Provider: Dorian Fuller RN)0225 (Rate/Dose Change - Provider: Dorian Fuller RN)0328 (Rate/Dose Change - Provider: Dorian Fuller RN)0431 (Rate/Dose Change - Provider: Dorian Fuller RN)0535 (Rate/Dose Change - Provider: Delia Welsh, MARY)0635 (Rate/Dose Change - Provider: Delia Welsh RN)0740 (Rate/Dose Change - Provider: Nehemiah Chiu RN)0850 (Rate/Dose Change - Provider: Nehemiah Chiu, RN)0950 (Rate/Dose Verify - Provider: Nehemiah Chiu RN)1055 (Rate/Dose Verify - Provider: Nehemiah Chiu RN)1250 (Rate/Dose Change - Provider: Nehemiah Chiu, RN)1425 (Rate/Dose Change - Provider: Nehemiah Chiu RN)1635 (Rate/Dose Change - Provider: Nehemiah Chiu RN)1840 (Rate/Dose Change - Provider: Nehemiah Chiu RN)1955 (Rate/Dose Change - Provider: Julieth Baugh, MARY)204 (Rate/Dose Change - Provider: Julieth Baugh, MARY)2100 (Stopped - Provider: Julieth Baugh RN) insulin regular (HumuLIN R, NovoLIN R) 100 Units in sodium chloride 0.9% 100 mL (1 Units/mL) infusion 0-30 Units/hr (0-30 mL/hr), 1 units/mL, intravenous, Titrated, Starting on Wed10/07/18 at 1645, Until Wed10/07/18 at 2239, Indications: Hyperglycemia, Desired Range (mg/dL): 130-180 general patients, Multiplier: 0.01, Adjust rate per GlucoStabilizer program for dka order When new IV tubing is used, completely prime the tubing. Once primed, waste an additional 20 ml of insulin infusion using the IV pump prior to connecting to patient., Routine 1600 (Rate/Dose Verify - Provider: Mann Cantu RN)1616 (New Bag - Provider: Mann Cantu, RN)1717 (Rate/Dose Change - Provider: Mann Cantu, RN)1808 (Rate/Dose Change - Provider: Mann Cantu, RN) PRN Medication Order 10/05/2018 10/06/2018 10/07/2018 acetaminophen (TYLENOL) tablet 650 mg 650 mg, oral, Every 4 hours PRN, 1st line for pain, Starting on Wed10/04/18 at 0537, Indications: Pain dextrose (D10W) 10% bolus 1-500 mL 1-500 mL, intravenous, at 2-2,000 mL/hr, Administer over 15-30 Minutes, As needed, blood glucose less than 70 mg/dL, Starting on Wed10/04/18 at 0837, Dose as determined by GlucoStabilizer dka order. 25 gm = 250 mL 50 gm = 500 mL, Indications: Hypoglyemia glucagon injection 1 mg 1 mg, intramuscular, Administer over 1 Minutes, Every 30 min PRN, low blood sugar, blood glucose less than 70 mg/dL AND no IV access AND unable to take PO glucose/jiuce., Starting on Wed10/06/18 at 2057, After Glucagon is administered, position patient on [...] Units, intravenous, As needed, hyperglycemia, Starting on Wed10/07/18 at 1604, Bolus per GlucoStabilizer dka order., Indications: Hyperglycemia oxyCODONE (ROXICODONE) tablet 5 mg 5 mg, oral, Every 4 hours PRN, 2nd line for pain, Starting on Wed10/04/18 at 0537, May administer 1 hour after 1st line agent for uncontrolled or increasing pain., Indications: Pain prochlorperazine (COMPAZINE) injection 5 mg 5 mg, intravenous, Administer over 2 Minutes, Every 6 hours PRN, nausea, vomiting, Starting on Wed10/04/18 at 0850 documented in this encounter Orders Medications Ordered That Evan ht Not Have Been Administered Count Last Ordered Date First Ordered Date insulin regular bolus from bag 1-10 Units 2 10/07/2018 10/04/2018 glucagon injection 1 mg 1 10/06/2018 insulin lispro (HumaLOG) pen injection 1-3 Units 1 10/06/2018 acetaminophen (TYLENOL) tablet 650 mg 1 08/2018 dextrose (D10W) 10% bolus 1-500 mL 1 2018 dextrose 5% infusion 1 10/04/2018 doxylamine (UNISOM) tablet 25 mg 1 06/04/20 19 enoxaparin (LOVENOX) syringe 30 mg 1 2018 enoxaparin (LOVENOX) syringe 40 mg 2 2018 ondansetron (ZOFRAN) injection 4 mg 2 10/04 ondansetron ODT (ZOFRAN-ODT) disintegrating tablet 4 mg 1 10/04/2018 oxyCODONE (ROXICODONE) tablet 5 mg 1 2018 prochlorperazine (COMPAZINE) injection 5 mg 1 10/04/2018 Lab Orders Without Results Count Last Ordered D ate First Ordered Date POCT GLUCOSE DEVICE 13 10/07/2018 10/05/19 19 Nursing Count Last Ordered Date First Orde red Date DISCHARGE INSTRUCTIONS 1 10/07/2018 FOLLOW UP WITH PROVIDER 2 10/07/2018 WEIGH PATIENT 1 10/04/2018 Consult Count Last Ordered Date First Orde red Date 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
--- OUTSIDE RECORDS SUMMARY | 2024-05-10 18:41 | XMS_ITS | Encounter Summary ---
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
--- OUTSIDE RECORDS SUMMARY | 2024-05-10 18:41 | XMS_ITS | Encounter Summary ---
Author Organization [facility] Healthcare Address [address] [place] [address] Care Team Providers Care Prepress Operator Name Role Phone Carrie Joseph Primary Care Provider + Encounter Details Date Type Department Care Team (Latest Contact Info) Description 11/10/2018 1:02 PM CDT - 11/10/2018 10:00 PM CDT Hospital Encounter [facility] [address] [place] [address] Alexa Munoz MD [address] [place] [address] Missed ab Discharge Disposition: Left Against Medical Advice Social History Tobacco Use Types Packs/Day Years Used Date Smoking Tobacco: Never Smokeless Tobacco: Never Alcohol Use Standard Drinks/Week Comments Not Currently 0 (1 standard drink = 0.6 oz pur e alcohol) Comments Yes Sex and Gender Information Value Date Recorded Sex Assigned at Not on file Legal Sex Female 3:13 AM [employer] Gender Identity Not on file Sexual Orientation Not on file documented as of this encounter Last Filed Vital Signs Vital Sign Reading Time Taken Comments Blood Pressure 115/68 11/10/2018 7:50 PM CDT Pulse 106 11/10/2018 7:50 PM CDT Temperature 36.4 ??C (97.6 ??F) 11/10/2018 7:50 PM CD T Respiratory Rate 18 11/10/2018 7:50 PM CDT Oxygen Saturation 99% 11/10/2018 7:50 PM CDT Inhaled Oxygen Concentration - - Weight 59.3 kg (130 lb 11.7 oz) 11/10/2018 1:15 PM CDT Height 154.9 cm (5' 1 ) 11/10/2018 1:15 PM CDT Body Mass Index 24.7 11/10/2018 1:15 PM CDT documented in this encounter Discharge Diagnoses Diagnosis Missed - MISSED Type 2 diabetes mellitus without complications (CMS/[facility]) ([facility]) - TYPE 2 DIABETES MELLITUS WITHOUT COMPLICATIONS correction current use of insulin (CMS/[facility]) ([facility]) - DIRECTOR COMMUNITY ORGANIZATION (CURRENT) USE OF INSULIN documented in this encounter Discharge Instructions * Discharge Instructions* Alexa Munoz MD - 11/10/2018 4:00 PM CDT Take medication as prescribed. Follow up with Dr. Munoz in 2 weeks. Call for appointment. * Attachments The following attachments cannot be sent through Care Everywhere. * Methylergonovine (By mouth) (Irish) * Ibuprofen (By mouth) (Irish) * Doxycycline (By mouth) (Irish) * General Anesthesia (Discharge Care) (Irish) documented in this encounter Medications at Time [...] without having a steroid on board to pump servicer helper in prevention of a rebound reactions. [...] both the hospitalist and anesthesia. * Kathryn Caldwell, MARY - 11/10/2018 6:48 PM CDT Pt arrived to floor with no swelling, rash, or hives. Pt has no complaints of pain and jackelin pad remains with no drainage. Pt is resting in bed with no complaints and Significant other is at the bedside. documented in this encounter Miscellaneous Notes * Perioperative Nursing Note - Valeria Tracy, MARY - 11/10/2018 4:20 PM CDT 1619Patient started [...] MD - Primary Anesthesiologist: Tawanda Perea MD APPRAISER IRRIGATION TAX: Tj Brown CRNA Brick Layer: Landon Ford RN; Yanet Mcgraw RN Produce Team Member: Pooja Leone FLOAT: Caitlin Brewster RN DATE OF SURGERY [...] that you and your doctor have chosen [facility] for your surgery. We hope that [...] of water. ?? Use no make-up, nail british, lotions, oils or powders on your skin. [...] Glucose, POC 81 71 - 98 mg/dL [facility] Blood specimen (specimen) 11/10/2018 3:54 PM CDT 11/10/2018 3:54 PM CDT us Alexa Munoz MD LAB POCT ORDERABLES - DE VICE Final Result Performing Organization Address City/[facility]/ZIP Co de Phone Number [facility] 1 [facility] [address] * (ABNORMAL) POCT glucose (11/10/2018 2:29 PM CDT) Pathologist [facility] Glucose, POC 144(H) 71 - 98 mg/dL [facility] Blood specimen (specimen) 11/10/2018 2:29 PM CDT 11/10/2018 2:29 PM CDT us Alexa Munoz MD LAB POCT ORDERABLES - DE VICE Final Result Performing Organization Address City/[facility] Co de Phone Number [facility] 1 [facility] [place] [address] * eGFR (11/10/2018 1:38 PM CDT) Pathologist [facility] eGFR 156 mL/min/1.7 3 m2 [facility] Comment: Interpretive Data Reference Interval Normal ?>/= 90 mL/min/1.73m2 Mildly decreased* ? 60 - 89 mL/min/1.73m2 Mildly to moderately decreased ?45 - 59 mL/min/1.73m2 Moderately to severely decreased ??30 - 44 mL/min/1.73m2 Severely decreased ?15 - 29 mL/min/1.73m2 Kidney Failure ?< 15 ??mL/min/1.73m2 *Relative to young adult level If -Pakistani multiply value by 1.16. Estimated glomerular filtration [...] LAB BLOOD ORDERABLES F inal Result T[facility] 1 [facility] [employer] [address] * Antibody screen (11/10/2018 1:38 PM CDT) Selvin, indirect, Gel Interpretation Negative ABSC TOMY [facility] ([place] Blood specimen (specimen) 11/10/2018 1:38 PM CDT 11/10/2018 1:41 PM CDT [facility]ative [facility] - 11/10/2018 2:18 PM CDT Has the patient had Daratumumab (Darzalex) in the past 6 months?->Unknown us Alexa Munoz MD LAB BLOOD BANK TEST ORDE DILAN Final Result [facility] 1 [facility] of [employer] [place], [place] [id number] * ABO/Rh (11/10/2018 1:38 PM CDT) ABO/Rh O Positive [facility]) Blood specimen (specimen) 11/10/2018 1:38 PM CDT 11/10/2018 1:41 PM CDT Narrative [facility] - 11/10/2018 2:18 PM CDT Has the patient had Daratumumab (Darzalex) in the past 6 months?->Unknown us Alexa Munoz MD LAB BLOOD BANK TEST HANDY KONG Final Result [facility] 1 [facility] [place] [address] * (ABNORMAL) Basic metabolic panel (11/10/2018 1:38 PM CDT) Sodium 135 135 - 145 mmol/L [facility] Potassium, pl 3.6 3.3 - 4.9 mmol/L [facility] Chloride 98 97 - 110 mmol/L [facility] CO2 24 22 - 32 mmol/L [facility] Anion gap 14 2 - 15 mmol/L [facility] BUN 6(L) 8 - 25 mg/dL [facility] Creatinine 0.34(L) 0.60 - 1.10 mg/dL [facility]) Glucose 254(H) 70 - 199 mg/dL [facility] Comment: Interpretive Data [...] mg/dL [facility] Blood specimen (specimen) 11/10/2018 1:38 PM CDT 11/10/2018 1:41 PM CDT us Tawanda Perea MD LAB BLOOD ORDERABLES F inal Result Performing Organization Address [facility] Co de Phone Number [facility] 1 [facility] [place] [address] * (ABNORMAL) hCG, blood, quantitative (11/10/2018 1:38 PM CDT) hCG, quant 16,818.0( H) 0.0 - 5.0 IUnits/L [facility] Comment: Interpretive Data Non- Female premenopausal: < [...] ORDERABLES Fin al Result Performing Organization Address City/[facility]/ZIP Co de Phone Number [facility] 1 [facility] [employer] [employer] [place] [address] * (ABNORMAL) CBC without differential (11/10/2018 1:38 PM CDT) WBC 9.0 3.8 - 9.9 K/cumm [facility] Hgb 13.2 11.9 - 15.5 g/dL [facility] Hct 37.3 35.6 - 45.5 % [facility] Plt 420(H) 150 - 400 K/cumm [facility] MPV 8.6(L) 9.1 - 12.3 fL [facility] RBC 4.42 3.90 - 5.20 M/cumm [facility] MCV 84.4 81.3 - 96.4 fL [facility] MCH 29.9 27.1 - 33.3 pg [facility] MCHC 35.4 32.3 - 35.7 g/dL [facility] RDW CV 13.9 11.1 - 14.9 % [facility] RDW SD 42.3 35.7 - 48.1 fL [facility] NRBC abs 0.00 0.00 - 0.01 K/cumm [facility] Blood specimen (specimen) 11/10/2018 1:38 PM CDT 11/10/2018 1:41 PM CDT us Alexa Munoz MD LAB BLOOD ORDERABLES Fin al Result [facility] 1 [facility] [employer] [place] [address] * (ABNORMAL) POCT glucose (11/10/2018 1:31 PM CDT) Glucose, POC 225(H) 71 - 98 mg/dL [facility] Blood specimen (specimen) 11/10/2018 1:31 PM CDT 11/10/2018 1:31 PM CDT us Alexa Munoz MD LAB POCT ORDERABLES - DE VICE Final Result [facility] 1 [facility] Department [place] [address] * Surgical pathology (11/10/2018 11:11 AM CDT) Tissue (POC, , spontaneous or missed) 11/10/2018 3:19 PM CDT Narrative PATHOLOGY [facility] - 11/14/2018 11:23 AM CDT EPIC results best viewed via link to PDF [facility] Department of Pathology [address] [place] [id number] Final Report Patient Name: ??KARINA MENJIVAR Address: ??[facility] , ??[place], [place] [address] Gender: ??F : ??1995 (Age: 23) Service: ??Surgery Location: ??[facility] Hospital #: ??[id number] Patient Type: ??[facility] Accession # ?[id number] Taken: ??11/10/2018 Received: ??11/11/2018 Accessioned: ??11/11/2018 Reported: [...] submitted in a single container labeled Karina Centeno Menjivar and products of conception . ??It [...] determined by the Surgical Pathology Department at [facility] as part of an ongoing associate quality engineer program and in compliance with federally mandated [...] characteristics determined by the Surgical Pathology Department [facility]. ??It has not been cleared or approved by the [place]. [place]. Food and Drug Administration. Alexa Munoz MD LAB PATHOLOGY ORDERABLES Final Result Performing Organization Address City/State/[facility] Co de Phone Number PATHOLOGY [facility] ([place] [phone] documented in this encounter Visit Diagnoses Diagnosis Missed ab Missed documented in this encounter Administered Medications Inactive [...] 1:52 PM CDT 1 mg sodium chloride 0.9% infusion 30 mL/hr, [...] or more after 1st dose., Indications: Pain 1942 (Given - Provid er: Juana Vail RN [...] Nurys 11/10/18 at 1333, For 1 occurrence, 3 hours after administering IV push Insulin Regular. Communicate result with MD., Pre-Op documented in this encounter Orders Medications Ordered That Evan ht Not Have Been Administered Count Last Ordered Date First Ordered Date fentaNYL (SUBLIMAZE) preserv ative free injection 25 mcg 1 11/10/2018 ketorolac (TORADOL) injection 30 mg 1 11/10 meperidine (DEMEROL) preserv ative free injection 12.5 mg 11/10/2018 naloxone (NARCAN) 0.4 mg/mL injection 0.04-0.4 mg 1 11/10/2018 ondansetron (ZOFRAN) injection 4 mg 1 11/10 sodium chloride 0.9 % irrigation 11/11/19 sodium chloride 0.9% flush 0.5-20 mL 10/31 sodium chloride 0.9% infusion 1 11/10/2018 Diet Count Last Ordered Date First Orde red Date ADULT DISCHARGE DIET 1 11/10/2018 Nursing Count Last Ordered Date First Orde red Date ACTIVITY 11/10/2018 DISCHARGE CALL PROVIDER 11/10/2018 DISCHARGE INSTRUCTIONS 11/10/2018 FOLLOW UP WITH PROVIDER 11/10/2018 documented in this encounter Care Teams Prepress Operator Relationship Specialty Start Date End Date Carrie Joseph PA [address] [place] [address] PCP - General 10/04/18 07/19/21 documented as of this encounter
--- OUTSIDE RECORDS SUMMARY | 2024-05-10 18:41 | XMS_ITS | Encounter Summary ---
Author Organization [facility] Healthcare Address [address] [place] [address] Care Team Providers Care Crowning Hammer Operator Name Role Phone Carrie Joseph Primary Care Provider + Reason for Visit * Reason Comments Vomiting During Encounter Details Date Type Department Care Team (Late st Contact Info) Description 11/07/2018 1:28 PM CDT - 11/08/2018 1:15 PM CDT Hospital Encounter [facility] ICU [address] [place] [address] Tavo Ochoa MD [address] [place] [address] [place] [address] Mann Paris Jr., MD [address] [place] [address] [place] [address] Ernestine Cisneros MD [address] [place] [address] [place] [address] Type 1 diabetes mellitus with ketoacidosis without coma (CMS/HCC) (Primary Dx); Vomiting affecting Discharge Disposition: Left Against Medical Advice Social History Tobacco Use Types Packs/Day Years Used Date Smoking Tobacco: Never Smokeless Tobacco: Never Alcohol Use Standard Drinks/Week Comments Yes 0 (1 standard drink = 0.6 oz pur e alcohol) Comments Yes Sex and Gender Information Value Date Recorded Sex Assigned at Not on file Legal 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 Gender Identity Not on file Sexual Orientation Not on file documented as of this encounter Last Filed Vital Signs Vital Sign Reading Time Taken Comments Blood Pressure 126/84 11/08/2018 12:00 PM CDT Pulse 101 11/08/2018 12:00 PM CDT Temperature 36.8 ??C (98.3 ??F) 11/08/2018 12:00 PM C DT Respiratory Rate 19 11/08/2018 12:00 PM CDT Oxygen Saturation 100% 11/08/2018 12:00 PM CDT Inhaled Oxygen Concentration - - Weight 56.7 kg (125 lb) 11/08/2018 5:36 AM CDT Height 154.9 cm (5' 1 ) 11/08/2018 11:23 AM CDT Body Mass Index 23.62 11/08/2018 5:36 AM CDT documented in this encounter Discharge Diagnoses Diagnosis Type 1 diabetes mellitus with ketoacidosis and coma ([facility]) - TYPE 1 DIABETES MELLITUS WITH KETOACIDOSIS WITH COMA Hyperemesis gravidarum with metabolic disturbance - HYPEREMESIS GRAVIDARUM WITH METABOLIC DISTURBANCE Dehydration - DEHYDRATION Endocrine, nutritional and metabolic diseases complicating , first trimester - ENDOCRINE, NUTRITIONAL AND METABOLIC DISEASES COMPLICATING , FIRST TRIMESTER Less than 8 weeks gestation of - LESS THAN 8 WEEKS GESTATION OF MCFP current use of insulin ([facility]/HCC) (HCC) - NURSING HOME (CURRENT) USE OF INSULIN Major depressive disorder, single episode - MAJOR DEPRESSIVE DISORDER, SINGLE EPISODE, UNSPECIFIED Major depressive disorder, single episode, unspecified Complete or unspecified spontaneous without complication - COMPLETE OR UNSPECIFIED SPONTANEOUS WITHOUT COMPLICATION documented in this encounter Discharge Summaries * Ernestine Cisneros MD - 11/08/2018 1:15 PM CDT Against medical advice discharge summary Patient admitted for DKA. Patient has history of diabetes type 1. Patient decided to leave against medical advice. I explained patient multiple times that she has history of recurrent DKA admission in recent past so it would be beneficial for her to stay in the hospital for 1 more day so we can make sure her blood sugars are controlled and we can discharge her onappropriate dose of insulin. Patient still decided to leave against medical advice. I explained breann ent regarding all risks of leaving against medical advise including . Patient voiced understanding. Patient is AAO x3 and able to make her own decision. Patient's grandmother is at bedside and she also voiced understanding. Patient was evaluated by for her and Dr. Munoz' nurse Poornima called MARY Gorman that patient has miscarriage based on down trending beta- hCG results and no need for ultrasound. Patient states she has an appointment with her PCP Carrie Joseph and her OBGYN tomorrow. Patient is strongly educated to maintain that appointment. Patient states she has an appointment with v[facility] genetic at [facility] on Wednesday11/11/2018. Patient is strongly educated to maintain that appointment. Patient is educated to continue with insulin as recommended by her PCP/vp genetic and keep checking her blood sugar as recommended by her PCP and vp genetic . Patient voiced understanding. Patient is educated if her blood sugars are too high or too low immediately go to nearest emergency room. Patient voiced understanding. Patient states she has enough supply of insulin at home. MARY Gorman is at bedside during whole conversation documented in this encounter Medications at Time [...] unable to take PO glucose/jiuce.) 10/07/2018 9 insulin glargine (LANTUS,BASAGLAR ) 100 unit/mL (3 mL) insulin pen Inject 14 Units under the skin daily 1 insulin lispro (HumaLOG) 100 unit/mL injection Inject under the skin 3 (three) times a day before meals Takes 1 unit for every 8 grams of carbohydrate 9 prochlorperazine (COMPAZINE) 10 mg/2 mL (5 [...] encounter Progress Notes * Sy, Ragini Selby, DIANDRA - 11/08/2018 11:33 AM CDT [facility] Nutrition Assessment NAME:Karina Menjivar :1995 AGE:23 y.o. SEX: female ADMISSION DATE:11/07/2018, CURRENT LOS is 1 days. ENCOUNTER DATE: 11/08/18 11:43 AM REASON for ASSESSMENT: Initial Nutrition Assessment DX: TYPE 1 DIABETES MELLITUS WITH KETOACIDOSIS WITHOUT COMA ([facility]) Nutrition Screen What diet do you follow at home?: diabetic Have You Recently Lost Weight Without Trying?: No Poor Oral Intake for Four or More Days Prior to Admission: No Current diet order: Adult Diet Pt intake is inadequate. PO intakes: no po intake seen ALLERGIES: Patient has no known allergies. ASPEN Malnutrition Assessment: Nutrition Focused Physical Exam Notes: Nutrition Needs Calculations: Calculated Energy Needs Using Equations Weight Used for Equation Calculations (RD Determined): 56.7 kg (125 lb) Weight: 56.7 kg (125 lb) Height: 154.9 cm (5' 1 ) aMrco A Savage Equation (Overweight or Obese Patients): 1264 Equation Chosen to Use by RD: Bernardo Bliss Activity Factor: 1.2 Total Energy Needs: 1516.8 kcal Temp: 36.8 ??C (98.3 ??F) Total Energy Needs + Fever Factor: 1516.8 Estimated Protein Needs Type of Weight Used for Estimated Protein : Current Protein Needs Based on g/k.0 Total Protein Estimated Needs (gm): 56.7 Kcal/kg Type of Weight Used for Estimated Kcals: Current Kcal/k Total Kcal/kg Estimated Needs : 1530.9 Estimated Fluid Needs Type of Weight Used for Estimated Fluid Needs: Current Fluid Needs Based on : 35 ml/kg Total Fluid Estimated Needs: 1984.5 Estimated Carbohydrate Needs Type of Weight Used for Estimated Carbohydrate Needs: Current Recommended Carbohydrates for Breakfast (gm) : 45 Recommended Carbohydrates for AM Snack (gm) : 5 Recommended Carbohydrates for Lunch (gm) : 45 Recommended Carbohydrates for Afternoon Snack (gm) : 5 Recommended Carbohydrates for Dinner (gm) : 45 Recommended Carbohydrates for HS Snack (gm) : 5 Total Daily Carbohydrates Recommended (gm): 150 Estimated needs: ?? Total Kcal/kg Estimated Needs : 1530.9 based on Kcal/k. Type of Weight Used for Estimated Kcals: Current ?? [facility] Total Energy Needs: 1516.8 kcal using ?? [facility] Total Energy Needs + Fever Factor: 1516.8 ?? Total Protein Estimated Needs (gm): 56.7 Protein Needs Based on g/k.0 Type of Weight Used for Estimated Protein : Current. ?? Total Fluid Estimated Needs: 1984.5 Fluid Needs Based on : 35 ml/kg. Objective Anthropometrics Weight: 56.7 kg (125 lb) Admission Weight : 56.7 kg Weight Change: -2.26 kg (-4.99 lbs) IBW/kg (Calculated) : 47.6 kg Height: 154.9 cm (5' 1 ) Weight in (lb) to have BMI = 25: 132 BMI (Calculated): 23.6 119% IBW 3 Day I/O Summary 11/060 - 11/08 0659 In: 5592 [I.V.:3592] Out: 1500 [Urine:1350] Temp: 36.8 ??C (98.3 ??F) [place] body weight: 47.8 kg (105 lb 6.1 oz) Adjusted ideal body weight: 51.4 kg (113 lb 3.7 oz) Past Medical History: Diagnosis Date ??? Depression ??? Diabetes mellitus (CMS/[facility]) ??? HX OTHER MEDICAL 2011 Diabetes mellitus, type 1 Medications and Lab Review: Scheduled Meds: famotidine 20 mg intravenous BID insulin glargine 0.3 Units/kg subcutaneous Q24H insulin lispro 1-2 Units subcutaneous Nightly insulin lispro 1-3 Units subcutaneous TID with meals metoclopramide 10 mg intravenous Q8H BOB Continuous Infusions: dextrose 5% and sodium chloride 0.45% 100 mL/hr Last Rate: 100 mL/hr (11/08/18 0210) Sodium Date Value Ref Range Status 11/08/2018 130 (L) 135 - 145 mmol/L Final Potassium, pl Date Value Ref Range Status 11/08/2018 3.6 3.3 - 4.9 mmol/L Final BUN Date Value Ref Range Status 11/08/2018 <3 (L) 8 - 25 mg/dL Final Creatinine Date Value Ref Range Status 11/08/2018 0.24 (L) 0.60 - 1.10 mg/dL Final Phosphorus, pl Date Value Ref Range Status 11/08/2018 2.2 (L) 2.3 - 4.5 mg/dL Final Albumin Date Value Ref Range Status 11/07/2018 4.0 3.5 - 5.0 g/dL Final Magnesium Date Value Ref Range Status 11/08/2018 2.0 1.6 - 2.4 mg/dL Final Calcium Date Value Ref Range Status 11/08/2018 8.3 (L) 8.5 - 10.3 mg/dL Final Lab Results Component Value Date HGBA1C 9.4 (H) 10/05/2018 POC Glucose: Results for KARINA MENJIVAR ( ) as of 11/08/2018 11:34 Ref. Range 11/08/2018 01:56 11/08/2018 03:00 11/08/2018 04:30 11/08/2018 08:16 11/08/2018 10:41 Glucose Latest Ref Range: 70 - 199 mg/dL 171 314 (H) Glucose, POC, bld Latest Ref Range: 71 - 98 mg/dL 139 (H) 138 (H) 150 (H) 168 (H) Nursing Assessment: Bowel Sounds (All Quadrants): Active Emesis Assessment Emesis Color/Appearance: Bilious Teodoro Scale Score: 20 Skin Integrity: Bruising Nutrition Follow-Up : 11/09/18 Nutrition Diagnosis 1: ( Diet just started. No po intake available. DM1. ) Related to: Nausea, Vomiting Evidenced by: Physical finding Interventions: [place] diet preferences within the limits of nutrition care order, Meals and snacks Monitoring and Evaluation: Appetite, Blood glucoses, Discharge plans, Plan of care, Labs, Food preferences, PO intake ?? Goals: Adequate nutrition to meet estimated needs by next assessment Recommendations: ( RD available, prn. Follow Up per policy;. ) Follow up date: 11/09/18 Ragini Sy, DIANDRA,LDN * Felipe Mayo [facility] - 11/08/2018 2:20 AM CDT Na= 135 K= 3.3 Mg= 2.3 Phos= 1.8 GIVE KPhos 2 packets tid x 3 doses if po possible * Nya Waters [facility] - 11/07/2018 8:29 PM CDT Electrolyte monitoring performed by pharmacy on labs from 11/07/18 1351, Na+=137 K+=3.2 Potassium chloride 40meq iv x1 replacement ordered. Pharmacy will continue to follow daily. * Nya Waters [facility] - 11/07/2018 8:25 PM CDT An order to initiate electrolyte [...] be ordered by providers as needed. * Nura Clinton RN - 11/07/2018 5:13 PM CDT 11/07/18 1700 Discharge Planning Type of Residence Private residence Living Arrangements Family members (lives with her grandmother) Assistance Needed uses no aids, handles her ADL's without diff, goal is to return to grandmothers home, no known barriers to discharge noted at this time, pt choice given and 6 clicks done. * Nura Clinton RN - 11/07/2018 5:11 PM CDT 11/07/18 1700 Basic Mobility - 6 Click How much [...] 4 Total Score (range 6-24) 24 * Nura Clinton RN - 11/07/2018 5:11 PM CDT 11/07/181699 Communications Patient choice (Home Health/Hospice) list given to patient/c s s representative? Yes Fiduciary Responsibility Patient/Designated decision maker was informed of [facility] fiduciary relationship as necessary documented in this encounter H&P Notes * Gio Sewell MD - 11/07/2018 7:09 PM CDT History and Physical Date of Service: 11/07/2018 Primary Care Physician: KEANU Conway [phone] SUBJECTIVE: Patient is a 23 y.o. female A0 with a PMHx significant for type 1 diabetes, depression, currently at 7 weeks of gestational age. Presents to the ED with a chief complaint of DKA. HPI: Patient presented to the emergency department with complains of recurrent DKA. Patient currently islethargic and unable to provide with any history. The patient's grandmother is at bedside. She reports that for the last few months patient had several hospitalizations for recurrent DKA episodes despite of taking and being compliant with her insulin. The most recently was discharged from [facility] 2 days ago with another episode of DKA. Prior to that she was admitted to [facility] and transferred to [facility] to high risk maternal care further management of DKA. Grandma states that there was a concern for demise. Patient was started on insulin drip and was admitted to the ICU for further management. Past Medical History: Diagnosis Date ??? Depression ??? Diabetes mellitus (CMS/HCC) ??? HX OTHER MEDICAL 2010 Diabetes mellitus, type 1 Past Surgical History: Procedure Laterality Date ??? ABDOMINAL SURGERY ??? SECTION, CLASSIC 2017 ??? TONSILLECTOMY Bilateral 2002 Medications Prior to Admission Medication Sig Dispense Refill Last Dose ??? insulin glargine (LANTUS,BASAGLAR) 100 unit/mL (3 mL) insulin pen Inject 10 Units under the skin daily ??? insulin lispro (HumaLOG) 100 unit/mL injection Inject under the skin 3 (three) times a day before meals Takes 1 unit for every 8 grams of carbohydrate ??? dextrose (D10W) 10% bolus Infuse 1-500 mL into a venous catheter as needed (blood glucose less than 70 mg/dL) Unknown at Unknown time ??? dextrose 5 % and 0.9 % NaCl (DEXTROSE 5% AND SODIUM CHLORIDE 0.9%) infusion Infuse 100 mL/hr into a venous catheter continuously Unknown at Unknown time ??? famotidine (PEPCID) 20 mg/2 mL injection Infuse 2 mL (20 mg total) into a venous catheter dailyUnknown at Unknown time ??? glucagon 1 mg kit Inject 1 mL (1 mg total) into the muscle as instructed every 30 (thirty) minutes as needed (blood glucose less than 70 mg/dL AND no IV access AND unable to take PO glucose/jiuce.) Unknown at Unknown time ??? prochlorperazine (COMPAZINE) 10 mg/2 mL (5 mg/mL) injection Infuse 1 mL (5 mg total) into a venous catheter every 6 (six) hours as needed for nausea or vomiting 2 mL Unknown at Unknown time ??? sodium chloride 0.9% 0.9% parenteral solution 99 mL with insulin regular 100 unit/mL solution 100 Units Infuse 0-30 Units/hr into a venous catheter as directed Unknown at Unknown time No Known Allergies Social History Tobacco Use ??? Smoking status: Never Smoker ??? Smokeless tobacco: Never Used Substance Use Topics ??? Alcohol use: Yes Family History Problem Relation Age of Onset ??? No Known Problems Mother ??? Autism Brother Review of Systems: Unable to obtain due to mental status changes, patient is lethargic OBJECTIVE: Vitals: Arrival Vitals Temp 11/07/18 1314 36.8 ??C (98.3 ??F) Pulse 11/07/18 1314 (!) 132 Resp 11/07/18 1314 20 BP 11/07/18 1314 154/99 SpO2 11/07/18 1314 99 % Temp src 11/07/18 1314 Temporal Heart Rate Source 11/07/18 1800 Monitor Patient Position 11/07/18 1800 Lying BP Location 11/07/18 1800 Left arm FiO2 (%) -- Most Recent : Vitals: 11/07/18 1314 11/07/18 1800 11/07/18 1830 BP: 154/99 130/80 131/78 BP Location: Left arm Patient Position: Lying Pulse: (!) 132 118 (!) 134 Resp: 20 16 11 Temp: 36.8 ??C (98.3 ??F) 36.7 ??C (98.1 ??F) TempSrc: Temporal Oral SpO2: 99% 100% 100% Weight: 59 kg (130 lb) Height: 154.9 cm (5' 1 ) I/O last 2 completed shifts: In: 1999 [IV Piggyback:1999] Out: - No intake/output data recorded. Physical exam: General: Lethargic, ill looking Eyes: ZOR[place], sclare non icteric Neck: supple, trachea midline, thyroid not enlarged, no gross carotid bruits appreciated Pharynx: No gross oral lesion, tongue midline, mucosa dry Lungs CTA Heart: [id number] Abd: +BS, Non Tender, Non distended, No gross hepatomegaly Lower Ext: No gross edema Neuro: Lethargic, but arousable Musculoskeletal: no gross joint erythema, edema, tenderness Genitourinary: No suprapubic or CVA tenderness Skin: No skin rashes, warm and dry to palpation Lab/Radiology/Diagnostic Review: Recent Results (from the past 24 hour(s)) CBC with auto differential Collection Time: 11/07/18 1:51 PM Result Value Ref Range WBC 7.4 3.8 - 9.9 K/cumm Hgb 13.3 11.9 - 15.5 g/dL Hct 37.1 35.6 - 45.5 % Plt 439 (H) 150 - 400 K/cumm MPV 8.5 (L) 9.1 - 12.3 fL RBC 4.49 3.90 - 5.20 M/cumm MCV 82.6 81.3 - 96.4 fL MCH 29.6 27.1 - 33.3 pg MCHC 35.8 (H) 32.3 - 35.7 g/dL RDW CV 13.3 11.1 - 14.9 % RDW SD 39.8 35.7 - 48.1 fL NRBC Abs 0.00 0.00 - 0.01 K/cumm Comprehensive metabolic panel Collection Time: 11/07/18 1:51 PM Result Value Ref Range Sodium 137 135 - 145 mmol/L Potassium, pl 3.2 (L) 3.3 - 4.9 mmol/L Chloride 99 97 - 110 mmol/L CO2 20 (L) 22 - 32 mmol/L Anion Gap 18 (H) 2 - 15 mmol/L BUN 8 8 - 25 mg/dL Creatinine 0.34 (L) 0.60 - 1.10 mg/dL Glucose 257 (H) 70 - 199 mg/dL Calcium 9.2 8.5 - 10.3 mg/dL Bilirubin, total 0.6 0.1 - 1.2 mg/dL Protein, pl 6.8 6.5 - 8.5 g/dL Albumin 4.0 3.5 - 5.0 g/dL Alk phos 73 40 - 130 Units/L ALT 8 7 - 45 Units/L AST 10 10 - 45 Units/L Sepsis Lactate w/ Reflex Collection Time: 11/07/18 1:51 PM Result Value Ref Range Sepsis Lactate 1.2 0.7 - 2.0 mmol/L hCG, blood, quantitative Collection Time: 11/07/18 1:51 PM Result Value Ref Range hCG, quant 21,388.0 (H) 0.0 - 5.0 IUnits/L Differential, auto Collection Time: 11/07/18 1:51 PM Result Value Ref Range Neutrophil absolute 5.7 1.7 - 6.5 K/cumm Immature granulocyte absolute 0.1 0.0 - 0.1 K/cumm Lymphocytes absolute 1.0 0.8 - 3.3 K/cumm Monocyte absolute 0.5 0.2 - 0.8 K/cumm Eosinophils absolute 0.0 0.0 - 0.5 K/cumm Basophils, abs 0.0 0.0 - 0.1 K/cumm Neutrophils 77.5 % Immature granulocytes 1.0 % Lymphocytes 14.3 % Monocytes 6.8 % Eosinophils 0.1 % Basophils 0.3 % eGFR Collection Time: 11/07/18 1:51 PM Result Value Ref Range GFR 156 mL/min/1.73 m2 POCT glucose Collection Time: 11/07/18 1:59 PM Result Value Ref Range Glucose, POC, bld 228 (H) 71 - 98 mg/dL Urinalysis reflex to microscopic and culture Urine Collection Time: 11/07/18 3:02 PM Result Value Ref Range Color, ur Yellow Yellow Clarity, ur Clear Clear Specific gravity, ur 1.026 (H) 1.010 - 1.025 pH, urine 6.5 Protein, ur ql Negative Negative Glucose, ur ql 3+ (A) Negative Ketones, ur 3+ (A) Negative Bilirubin, ur Negative Negative Blood, ur Negative Negative Urobilinogen, ur 1.0 mg/dL Nitrite, ur Positive (A) Negative Leukocyte esterase, ur Negative Negative Urinalysis, microscopic only Collection Time: 11/07/18 3:02 PM Result Value Ref Range WBC, ur 0-5 0 - 5 /HPF RBC, ur 0-5 0 - 2 /HPF Epithelial cells, squamous, ur 1-5 0 - 5 /HPF Bacteria, ur 4+ (A) Hyaline casts, ur 1-5 0 - 10 /LPF POCT glucose Collection Time: 11/07/18 4:11 PM Result Value Ref Range Glucose, POC, bld 197 (H) 71 - 98 mg/dL POCT glucose Collection Time: 11/07/18 5:21 PM Result Value Ref Range Glucose, POC, bld 122 (H) 71 - 98 mg/dL POCT glucose Collection Time: 11/07/18 6:11 PM Result Value Ref Range Glucose, POC, bld 158 (H) 71 - 98 mg/dL POCT glucose Collection Time: 11/07/18 7:04 PM Result Value Ref Range Glucose, POC, bld 192 (H) 71 - 98 mg/dL ASSESSMENT/PLAN: * Diabetic ketoacidosis with coma associated with type 1 diabetes mellitus ([facility]) Assessment & Plan Anion gap is slightly elevated. Blood sugars at 250s Urinalysis positive for ketones. Date the hydro sympathetic acid levels are pending. Reportedly patient was compliant with her insulin regimen and average blood sugars were running in mid 150s. Suspect recurrent DKA triggered by hyperemesis gravidarum and dehydration Also reported concern for demise. Beta-hCG was normal for the stated gestational age of 7 weeks OBGYN was consulted. The discussed with grandmothe patient need to follow up with high risk maternal center. Grandmother states that she was supposed to have an appointment but did not get a chance to be seen yet. Will get ultrasound to assess for the 5 ability of the fetus Hyperemesis gravidarum with metabolic disturbance Assessment & Plan Continue with IV Reglan Hypokalemia Assessment & Plan Will correct with KCl 40 mg IV as needed Dehydration Assessment & Plan Continue IV fluids with D5 half-normal saline Monitor strict I&Os Principal Problem: Diabetic ketoacidosis with coma associated with type 1 diabetes mellitus (CMS/HCC) Active Problems: Dehydration Hypokalemia Hyperemesis gravidarum with metabolic disturbance Full Code ESTIMATED LENGTH OF STAY: More than 2 midnights Moderate complexity Spent 60 minutes on this encounter Gio Sewell MD 11/07/2018 7:09 PM documented in this encounter Consult Notes * Alexa Munoz MD - 11/08/2018 6:56 AM CDTAssociated Order(s): IP CONSULT TO EMERGENCY MEDICAL TECHNICIAN/DRIVER CODING CONSULTANT Consult Reason for Consult: Requesting Provider: Dr. Ochoa Subjective Patient is 23 y.o., with chief complaint of not feeling well. HPI: Pt. Was admitted with DKA the day after being discharged from [facility] for the same. Thisis her 4th or 5th admission for DKA this year. Pertinent CODING CONSULTANT History: She had a positive test and an US on 10/26/18 showing an irregular gestational sac at 6 5/7 wks. Pt. Reports beta hCG quant decreasing at [place] during her last admission. She also reports no pain or vaginal bleeding. Menses: STD history: no past history Contraceptive type: Last mammogram: Never Last pap: Unknown OB History Para Term AB Living 1 SAB TAB Ectopic Multiple Live Births # Outcome Date GA Lbr Chuck/2nd Weight Sex Delivery Anes PTL Lv 1 Current Social History Substance and Sexual Activity Sexual Activity Yes ??? Partners: Male Past Medical History: Diagnosis Date ??? Depression ??? Diabetes mellitus (CMS/HCC) ??? HX OTHER MEDICAL 2010 Diabetes mellitus, type 1 Past Surgical History: Procedure Laterality Date ??? ABDOMINAL SURGERY ??? SECTION, CLASSIC 2016 ??? TONSILLECTOMY Bilateral 2002 Medications Prior to Admission Medication Sig Dispense Refill Last Dose ??? insulin glargine (LANTUS,BASAGLAR) 100 unit/mL (3 mL) insulin pen Inject 10 Units under the skin daily ??? insulin lispro (HumaLOG) 100 unit/mL injection Inject under the skin 3 (three) times a day before meals Takes 1 unit for every 8 grams of carbohydrate ??? dextrose (D10W) 10% bolus Infuse 1-500 mL into a venous catheter as needed (blood glucose less than 70 mg/dL) Unknown at Unknown time ??? dextrose 5 % and 0.9 % NaCl (DEXTROSE 5% AND SODIUM CHLORIDE 0.9%) infusion Infuse 100 mL/hr into a venous catheter continuously Unknown at Unknown time ??? famotidine (PEPCID) 20 mg/2 mL injection Infuse 2 mL (20 mg total) into a venous catheter dailyUnknown at Unknown time ??? glucagon 1 mg kit Inject 1 mL (1 mg total) into the muscle as instructed every 30 (thirty) minutes as needed (blood glucose less than 70 mg/dL AND no IV access AND unable to take PO glucose/jiuce.) Unknown at Unknown time ??? prochlorperazine (COMPAZINE) 10 mg/2 mL (5 mg/mL) injection Infuse 1 mL (5 mg total) into a venous catheter every 6 (six) hours as needed for nausea or vomiting 2 mL Unknown at Unknown time ??? sodium chloride 0.9% 0.9% parenteral solution 99 mL with insulin regular 100 unit/mL solution 100 Units Infuse 0-30 Units/hr into a venous catheter as directed Unknown at Unknown time Current Facility-Administered Medications Medication Dose Route Frequency Provider Last Rate Last Dose ??? dextrose (D10W) 10% bolus 1-500 mL 1-500 mL intravenous PRN Gio Sewell MD 999 mL/hr at 11/08/18 0023 125 mL at 11/08/18 0023 ??? dextrose 5% and sodium chloride 0.45% infusion (premix) 100 mL/hr intravenous Continuous Gio Sewell MD 100 mL/hr at 11/08/18 0210 100 mL/hr at 11/08/18 0210 ??? famotidine (PEPCID) injection 20 mg 20 mg intravenous BID Gio Sewell MD 20 mg at 146 ??? glucagon injection 1 mg 1 mg intramuscular Q30 Min PRN Gio Sewell MD ??? insulin glargine (LANTUS,BASAGLAR) pen injection 18 Units 0.3 Units/kg subcutaneous Q24H Gio Sewell MD ??? insulin lispro (HumaLOG) pen injection 1-2 Units 1-2 Units subcutaneous Nightly Gio Sewell MD ??? insulin lispro (HumaLOG) pen injection 1-3 Units 1-3 Units subcutaneous TID with meals Gio Sewell MD ??? insulin regular bolus from bag 1-10 Units 1-10 Units intravenous PRN Gio Sewell MD ??? metoclopramide (REGLAN) injection 10 mg 10 mg intravenous Q8H BOB iGo Sewell MD 10 mg at 11/08/18 0543 No Known Allergies Social History Tobacco Use ??? Smoking status: Never Smoker ??? Smokeless tobacco: Never Used Substance Use Topics ??? Alcohol use: Yes Family History Problem Relation Age of Onset ??? No Known Problems Mother ??? Autism Brother Review of Systems: Review of systems per HPI and otherwise all other systems are negative Objective Vitals: 24hr Min/Max: Temp Min: 98.1 ??F Max: 99.6 ??F Pulse Min: 89 Max: 137 BP Min: 90/60 Max: 158/110 Resp Min: 11 Max: 21 SpO2 Min: 99 % Max: 100 % Most Recent : Vitals: 11/08/18 0600 BP: 109/75 Pulse: 105 Resp: 18 Temp: SpO2: 99% Weight: 125 lb (56.7 kg) Height: 154.9 cm (5' 1 ) BSA (Calculated - sq m): 1.59 sq meters BMI (Calculated): 23.6 I/O last 2 completed shifts: In: 1999 [IV Piggyback:1999] Out: - I/O this shift: In: 3592 [I.V.:3592] Out: 1500 [Urine:1350; Emesis/NG output:150] Physical Exam: No exam performed today, status not detectable by PE.. Lab/Radiology/Diagnostic Review: Laboratory review: reviewed the laboratory result(s) Imporving Imaging review: I have reviewed the result(s) likely non-viable on US 10/26/18 additional labs: NA Assessment /Plan Principal Problem: Diabetic ketoacidosis with coma associated with type 1 diabetes mellitus (CMS/HCC) Active Problems: Dehydration Hypokalemia Hyperemesis gravidarum with metabolic disturbance Recommend obtaining serial beta hCG quants done at [place] (Admission was 2 days prior to this admission) If level is going down, miscarriage confirmed. Pt. Will need to follow-up as an outpatient for medical or surgical management and weekly beta hCG quants until zero. Please have patient follow-up withme [facility] after discharge. documented in this encounter Nursing Notes * Sherif Blanco RN - 11/08/2018 1:10 PM CDT IV's have been removed and pt is dressed. Pt leaves with grandmother per ambulation * Sherif Blanco RN - 11/08/2018 12:[address] Cisneros is here to see pt. And assesses pt. Explains to pt why she is here and the need to stay to make sure her vs and labs are stable. Pt reports she is not going to stay and wants to sign out AMA now. Advises pt of possible consequences. Pt's grandmother is present in the room. * Sherif Blanco RN - 11/08/2018 12:30 PM CDT I had face to face with Dr. Cisneros. He did not get my message. Pt now states she is going to leave today whether the doctor says o.k. Or not. Dr. Cisneros will be in to see her shortly. * Sherif Blanco RN - 11/08/2018 12:00 PM CDT Pt wants to go home today. I have sent a text to Dr. Cisneros re; Dr. Munoz visit this a.m. And labs obtained from Joel Arana from last weeks visit and sent to Dr. Munoz per her request. Dr. Munoz office called and states that miscarrage is confirmed and No US required. documented in this encounter ED Notes * Tavo Ochoa MD - 11/07/2018 1:43 PM CDT HPI Chief Complaint Patient presents with ??? Vomiting During 1:32 PM 11/07/2018 - Patient is a 23 y/o female non-smoker with a h/o IDDM type I presenting to the ED via private vehicle c/o multiple episodes of nausea and emesis today. Patient reports that she is approximately 7 weeks and was just discharged from [facility] 2 days ago where she was admitted for DKA. Her blood sugar [employer] was 125. She reports compliance with insulin. She is A0. Per chart review, patient was admitted here from 10/04/2018 until 10/07/2018 for management of DKA. Areli presented to this ED with similar symptoms to today's visit. Hemoglobin A1c was 9.4. She was transferred to [facility] under Dr. Barrera for closer OBGYN monitoring. She then signed out AMA from [facility]. Patient History Patient Active Problem List Diagnosis Date Noted ??? Less than 8 weeks gestation of [...] are negative. Physical Exam ED Triage Vitals [11/07/18 1314] Temp Pulse Resp BP SpO2 36.8 ??C (98.3 ??F) (!) 132 20 154/99 99 % Temp src Heart Rate Source Patient Position BP Location FiO2 (%) Temporal -- -- -- -- Physical Exam Constitutional: She is oriented to person, place, and time. She appears well- developed and well-nourished. Mild distress secondary to nausea. HENT: Head: Normocephalic and atraumatic. Eyes: Conjunctivae and EOM are normal. Neck: Normal range of motion. Neck supple. Cardiovascular: Normal rate, regular rhythm, normal heart sounds and intact distal pulses. Exam reveals no gallop and no friction rub. No murmur heard. Pulmonary/Chest: Effort normal and breath sounds normal. No respiratory distress. She has no wheezes. She has no rales. Abdominal: Soft. She exhibits no distension. There is no tenderness. Musculoskeletal: Normal range of motion. She exhibits no edema, tenderness or deformity. Neurological: She is alert and oriented to person, place, and time. Skin: Skin is warm and dry. Capillary refill takes less than 2 seconds. No rash noted. No erythema.No pallor. Psychiatric: She has a normal mood and affect. Her behavior is normal. Nursing note and vitals reviewed. MDM MDM Labs Reviewed URINALYSIS AND REFLEX TO MICROSCOPIC AND CULTURE - Abnormal Result Value Color, ur Yellow Clarity, ur Clear Specific gravity, ur 1.026 (*) pH, urine 6.5 Protein, ur ql Negative Glucose, ur ql 3+ (*) Ketones, ur 3+ (*) Bilirubin, ur Negative Blood, ur Negative Urobilinogen, ur 1.0 Nitrite, ur Positive (*) Leukocyte esterase, ur Negative Narrative: Urine pH is affected by diet, medications, systemic acid-base disturbances, and renal tubular function. pH may affect urinary stone formation. For example, urine pH below 6.0 may help reduce the tendency for calcium phosphate stones and pH greater than 6.0 may reduce the tendency for uric acid stone formation. Source: [place].Last revised 05-13-2017 Urine pH is affected by diet, medications, systemic acid-base disturbances, and renal tubular function. pH may affect urinary stone formation. For example, urine pH below 6.0 may help reduce the tendency for calcium phosphate stones and pH greater than 6.0 may reduce the tendency for uric acid stone formation. Source: [place].Last revised 05-13-2017 CBC WITH AUTO DIFFERENTIAL - Abnormal WBC 7.4 Hgb 13.3 Hct 37.1 Plt 439 (*) MPV 8.5 (*) RBC 4.49 MCV 82.6 MCH 29.6 MCHC 35.8 (*) RDW CV 13.3 RDW SD 39.8 NRBC Abs 0.00 COMPREHENSIVE METABOLIC PANEL - Abnormal Sodium 137 Potassium, pl 3.2 (*) Chloride 99 CO2 20 (*) Anion Gap 18 (*) BUN 8 Creatinine 0.34 (*) Glucose 257 (*) Calcium 9.2 Bilirubin, total 0.6 Protein, pl 6.8 Albumin 4.0 Alk phos 73 ALT 8 AST 10 HCG, BLOOD, QUANTITATIVE - Abnormal hCG, quant 21,388.0 (*) URINALYSIS, MICROSCOPIC ONLY - Abnormal WBC, ur 0-5 RBC, ur 0-5 Epithelial cells, squamous, ur 1-5 Bacteria, ur 4+ (*) Hyaline casts, ur 1-5 POCT GLUCOSE DEVICE - Abnormal Glucose, POC, bld 228 (*) POCT GLUCOSE DEVICE - Abnormal Glucose, POC, bld 197 (*) SEPSIS LACTATE WITH REFLEX Sepsis Lactate 1.2 DIFFERENTIAL AUTO Neutrophil absolute 5.7 Immature granulocyte absolute 0.1 Lymphocytes absolute 1.0 Monocyte absolute 0.5 Eosinophils absolute 0.0 Basophils, abs 0.0 Neutrophils 77.5 Immature granulocytes 1.0 Lymphocytes 14.3 Monocytes 6.8 Eosinophils 0.1 Basophils 0.3 EGFR GFR 156 No orders to display BP 154/99 Pulse (!) 132 Temp 36.8 ??C (98.3 ??F) (Temporal) Resp 20 Ht 154.9 cm (5' 1 ) Wt 59 kg (130 lb) LMP 08/12/2018 SpO2 99% BMI 24.56 kg/m?? ED Course as of Nov 07 1653 Time: 11/07 1621 Comment: Discussed patient's case with Dr. Paris[facility] who accepts the patient for admission. By: Alexia Cruz Time: 11/07 1621 Value: Basic metabolic panel Comment: (Reviewed) By: Tavo Ochoa MD Time: 11/07 1632 Comment: Discussed patient's case with ROLA Ordaz, who agrees to consult. By: Alexia Cruz Type 1 diabetes mellitus with ketoacidosis without coma (CMS/HCC) Vomiting affecting 4:54 PM: This note is prepared by Alexia Cruz, acting as a scribe for Tavo Ochoa MD. I electronically signed this note at 4:54 PM on 11/07/2018. I, Tavo Ochoa MD, have personally performed the services described in the documentation, reviewed the documentation, as recorded by the scribe in my presence, and it accurately and completely records my words and actions. Tavo Ochoa MD 11/07/18 1653 Tavo Ochoa MD 11/07/18 1654 * Shabnam Vail RN - 11/07/2018 1:11 PM CDT 23 yr old female presents to the ED with C/O nausea, vomiting onset today. Pt reports she is approximately 7 weeks and a T1DM. Last BG this am was 125. Pt alert upon arrival. documented in this encounter Miscellaneous Notes * Plan of Care - Sherif Blanco RN - 11/08/2018 1:00 PM CDT Goals: Problem: Fluid Volume: Goal: Ability to achieve a balanced intake and output will improve Outcome: Progressing Goal: Diagnostic test results will improve Outcome: Progressing Problem: Metabolic: Goal: Diagnostic test results will improve Outcome: Progressing Clinical Goals for the Shift: Labs to be withing normal limits and stable, Melony p.o. fluids and nutrition, Glucose levels to be within normal range for pt. Summary:Labs are improved. Pt's glucose is elevated. Pt is tolerating p.o. Fluids and nutrition, noN&V today. Pt is leaving against medical advice. Dr. Cisneros has assessed her and spoke to her and pt's grandmother. * Assessment & Plan Note - Gio Sewell MD - 11/08/2018 5:11 AM CDT Associated Problem(s): Hyperemesis gravidarum with metabolic disturbance (Resolved 03/06/2020) Continue with IV Reglan * Assessment & Plan Note - Gio Sewell MD - 11/08/2018 5:10 AM CDT Associated Problem(s): Hypokalemia Will correct with KCl 40 mg IV as needed * Assessment & Plan Note - Gio Sewell MD - 11/08/2018 5:10 AM CDT Associated Problem(s): Dehydration Continue IV fluids with D5 half-normal saline Monitor strict I&Os * Assessment & Plan Note - Gio Sewell MD - 11/08/2018 5:04 AM CDT Associated Problem(s): Diabetic ketoacidosis with coma associated with type 1 diabetes mellitus ([facility]/HCC) (HCC) (Deleted) Anion gap is slightly elevated. Blood sugars at 250s Urinalysis positive for ketones. Date the hydro sympathetic acid levels are pending. Reportedly patient was compliant with her insulin regimen and average blood sugars were running in mid 150s. Suspect recurrent DKA triggered by hyperemesis gravidarum and dehydration Also reported concern for demise. Beta-hCG was normal for the stated gestational age of 7 weeks OBGYN was consulted. The discussed with grandmothe patient need to follow up with high risk maternal center. Grandmother states that she was supposed to have an appointment but did not get a chance to be seen yet. Will get ultrasound to assess for the 5 ability of the fetus * Plan of Care - Nallely Chiu RN - 11/08/2018 3:48 AM CDT Goals: Clinical Goals for the Shift: decrease nausea and vomiting-improved labs Summary: Insulin drip discontinued around midnight when blood sugar dropped to less than 70 and given 125 ml of 10% dextrose (the equivalent of 15 ml of 50% dextrose). Remains npo but has had no further emesis since 2199. IV fluids were off for over an hour from 5780-3889 while multiple attempts were made to secure an iv site. IV site finally obtained by ER physician using ultrasound and once her fluid volume improved, herHR came down to <100. VSS. Plan for ultrasound today and probable transfer to a high risk hospital. Problem: Fluid Volume: Goal: Signs and symptoms of dehydration will decrease Outcome: Progressing Goal: Diagnostic test results will improve Outcome: Progressing Problem: Metabolic: Goal: Diagnostic test results will improve Outcome: Progressing Goal: Ability to maintain appropriate glucose levels will improve Outcome: Progressing Goal: Complications related to the disease process, condition or treatment will be avoided or minimized Outcome: Progressing Problem: Nutritional: Goal: Maintenance of adequate weight for body size and type will improve Outcome: Progressing Problem: Health Behavior: Goal: Understanding of discharge needs will improve Outcome: Not Progressing Problem: Lack of Knowledge: Goal: Understanding of fluid needs related to exercise, heat, and medication will improve Outcome: Not Progressing Goal: Knowledge of the prescribed therapeutic regimen will improve Outcome: Not Progressing Goal: Knowledge of disease or condition will improve by discharge Outcome: Not Progressing Problem: Fluid Volume: Goal: Ability to achieve a balanced intake and output will improve Outcome: Not Progressing Problem: Nutritional: Goal: Maintenance of adequate nutrition will improve Outcome: Not Progressing * Plan of Care - Mann Cantu RN - 11/07/2018 6:25 PM CDT Goals: Improve labs. Stable vital signs. Summary: Admitted to ICU 8 for DKA. On IV NS at 75 cc/hr. Glucostabilizer started at 2 u/hr. documented in this encounter Plan of Treatment Not on file documented as of this encounter Procedures Procedure Name Priority Date/Time Associated Diagnosis Comments POCT GLUCOSE DEVICE Routine 11/08/2018 1 2:03 PM CDT EGFR STAT 11/08/2018 10:41 AM CDT BASIC METABOLIC PANEL STAT 11/08/2018 10:41 AM CDT POCT GLUCOSE DEVICE Routine 11/08/2018 8 :16 AM CDT EGFR Timed 11/08/2018 4:30 AM CDT DIFFERENTIAL AUTO Routine 11/08/2018 4:3 0 AM CDT POCT GLUCOSE DEVICE Routine 11/08/2018 4 :30 AM CDT CBC WITH AUTO DIFFERENTIAL Routine 11/08/2018 4:30 AM CDT PHOSPHORUS Timed 11/08/2018 4:30 AM CDT MAGNESIUM Timed 11/08/2018 4:30 AM CDT BASIC METABOLIC PANEL Timed 11/08/2018 4:30 AM CDT POCT GLUCOSE DEVICE Routine 11/08/2018 3 :00 AM CDT POCT GLUCOSE DEVICE Routine 11/08/2018 1 :56 AM CDT POCT GLUCOSE DEVICE Routine 11/08/2018 1 2:56 AM CDT EGFR Timed 11/08/2018 12:31 AM CDT PHOSPHORUS Timed 11/08/2018 12:31 AM CDT MAGNESIUM Timed 11/08/2018 12:31 AM CDT BASIC METABOLIC PANEL Timed 11/08/2018 12:31 AM CDT POCT GLUCOSE DEVICE Routine 11/08/2018 1 2:28 AM CDT POCT GLUCOSE DEVICE Routine 11/08/2018 1 2:12 AM CDT POCT GLUCOSE DEVICE Routine 11/07/2018 1 1:08 PM CDT POCT GLUCOSE DEVICE Routine 11/07/2018 1 0:00 PM CDT POCT GLUCOSE DEVICE Routine 11/07/2018 8 :57 PM CDT EGFR Timed 11/07/2018 8:28 PM CDT PHOSPHORUS Timed 11/07/2018 8:28 PM CDT MAGNESIUM Timed 11/07/2018 8:28 PM CDT BASIC METABOLIC PANEL Timed 11/07/2018 8:28 PM CDT POCT GLUCOSE DEVICE Routine 11/07/2018 8 :13 PM CDT POCT GLUCOSE DEVICE Routine 11/07/2018 7 :04 PM CDT POCT GLUCOSE DEVICE Routine 11/07/2018 6 :11 PM CDT INFECTION PREVENTION MRSA ONLY (STAPHYLOCOCCUS AUREUS) CULTURE STAT 11/07/2018 5:49 PM CDT POCT GLUCOSE DEVICE Routine 11/07/2018 5 :21 PM CDT POCT GLUCOSE DEVICE Routine 11/07/2018 4 :11 PM CDT URINALYSIS AND REFLEX TO MICROSCOPIC AND CULTURE STAT 11/07/2018 3:02 PM CDT URINALYSIS, MICROSCOPIC ONLY STAT 11/07/2018 3:02 PM CDT POCT GLUCOSE DEVICE Routine 11/07/2018 1 :59 PM CDT SEPSIS LACTATE WITH REFLEX Routine 11/07/2018 1:51 PM CDT EGFR STAT 11/07/2018 1:51 PM CDT DIFFERENTIAL AUTO STAT 11/07/2018 1:5 1 PM CDT BETA-HYDROXYBUTYRATE Routine 11/07/2018 1:51 PM CDT CBC WITH AUTO DIFFERENTIAL STAT 11/07/2018 1:51 PM CDT HCG, BLOOD, QUANTITATIVE STAT 11/07/2018 1:51 PM CDT COMPREHENSIVE METABOLIC PANEL STAT 11/07/2018 1:51 PM CDT documented in this encounter Results * (ABNORMAL) POCT glucose (11/08/2018 12:03 PM CDT) [facility] Glucose, POC 250(H) 71 - 98 mg/dL TOMY SAHU ([place]) Blood specimen (specimen) 11/08/2018 12:03 PM CDT 11/08/2018 12:03 PM CDT Ernestine Cisneros MD LAB POCT ORDERABLES - DE VICE Final Result TOMY SAHU ([place]) 1 [facility] Department [place] [address] * eGFR (11/08/2018 10:41 AM CDT) eGFR 175 mL/min/1.7 3 m2 [facility] ([place]) Comment: Interpretive Data Reference Interval Normal ?>/= 90 mL/min/1.73m2 Mildly decreased* ? 60 - 89 mL/min/1.73m2 Mildly to moderately decreased ?45 - 59 mL/min/1.73m2 Moderately to severely decreased ??30 - 44 mL/min/1.73m2 Severely decreased ?15 - 29 mL/min/1.73m2 Kidney Failure ?< 15 ??mL/min/1.73m2 *Relative to young adult level If -Liberian multiply value by 1.16. Estimated glomerular filtration [...] was last reviewed 2015. Blood specimen (specimen) 11/08/2018 10:41 AM CDT 11/08/2018 10:45 AM CDT us Ernestine Cisneros MD LAB BLOOD ORDERABLES Fin al Result [facility] ([place]) 1 [facility] Department of Laboratories [place], [place] [id number] * (ABNORMAL) Basic metabolic panel (11/08/2018 10:41 AM CDT) Sodium 130(L) 135 - 145 mmol/L [facility] ([place]) Potassium, pl 3.6 3.3 - 4.9 mmol/L [facility] ([place]) Chloride 100 97 - 110 mmol/L [facility] ([place]) CO2 18(L) 22 - 32 mmol/L [facility] ([place]) Anion gap 13 2 - 15 mmol/L [facility] ([place]) BUN <3(L) 8 - 25 mg/dL [facility] ([place]) Creatinine 0.24(L) 0.60 - 1.10 mg/dL [facility] ([place]) Glucose 314(H) 70 - 199 mg/dL [facility] ([place]) [...] mg/dL [facility] ([place]) Blood specimen (specimen) 11/08/2018 10:41 AM CDT 11/08/2018 10:45 AM CDT Ernestine Cisneros MD LAB BLOOD ORDERABLES Fin al Result Performing Organization Address City/[facility]/ZIP Co de Phone Number TOMY SAHU ([place]) 1 [facility] Department [place] [address] * (ABNORMAL) POCT glucose (11/08/2018 8:16 AM CDT) Glucose, POC 168(H) 71 - 98 mg/dL [facility] ([place]) Blood specimen (specimen) 11/08/2018 8:16 AM CDT 11/08/2018 8:16 AM CDT Ernestine Cisneros MD LAB POCT ORDERABLES - DE VICE Final Result Performing Organization Address City/[facility]/ZIP Co de Phone Number TOMY SAHU ([place]) 1 [facility] Department [place] [address] * eGFR (11/08/2018 4:30 AM CDT) eGFR 170 mL/min/1.7 3 m2 TOMY LUIS ALBERTO ([place]) Comment: Interpretive Data Reference Interval Normal ?>/= 90 mL/min/1.73m2 Mildly decreased* ? 60 - 89 mL/min/1.73m2 Mildly to moderately decreased ?45 - 59 mL/min/1.73m2 Moderately to severely decreased ??30 - 44 mL/min/1.73m2 Severely decreased ?15 - 29 mL/min/1.73m2 Kidney Failure ?< 15 ??mL/min/1.73m2 *Relative to young adult level If -Liberian multiply value by 1.16. Estimated glomerular filtration [...] was last reviewed 2015. Blood specimen (specimen) 11/08/2018 4:30 AM CDT 11/08/2018 4:34 AM CDT us Gio Sewell MD LAB BLOOD ORDERABLES Final Re sult TOMY SAHU ([place]) 1 [facility] Department [place] [address] * (ABNORMAL) POCT glucose (11/08/2018 4:30 AM CDT) Pathologist [facility] Glucose, POC 150(H) 71 - 98 mg/dL [facility] ([place]) Blood specimen (specimen) 11/08/2018 4:30 AM CDT 11/08/2018 4:30 AM CDT Mann Paris Jr., MD LAB POCT ORDERABLES - DEVICE Final Result TOMY SAHU ([place]) 1 [facility] Department [place] [address] * (ABNORMAL) Differential, auto (11/08/2018 4:30 AM CDT) Neutrophil abs 7.9(H) 1.7 - 6.5 K/cumm [facility] ([place]) Imm gran abs 0.1 0.0 - 0.1 K/cumm [facility] ([place]) Lymphocyte abs 3.5(H) 0.8 - 3.3 K/cumm [facility] ([place]) Monocyte abs 1.0(H) 0.2 - 0.8 K/cumm [facility] ([place]) Eosinophil abs 0.0 0.0 - 0.5 K/cumm [facility] ([place]) Basophil abs 0.0 0.0 - 0.1 K/cumm [facility] ([place]) Neutrophil pct 62.9 % [facility] ([place]) Comment: Interpretive [...] was last revised on 2017. Lymphocyte pct 27.8 % [facility] ([place]) Comment: Interpretive Data Percent cell count reference ranges are not reported, since discordance with absolute values may lead to misinterpretation of CBC data. Current Interpretive Data was last revised on 2017. Monocyte pct 8.3 % [facility] ([place]) Comment: Interpretive Data [...] last revised on 2017. Blood specimen (specimen) 11/08/2018 4:30 AM CDT 11/08/2018 4:34 AM CDT us Tavo Ochoa MD LAB BLOOD ORDERABLES Fi nal Result [facility] ([place]) 1 [facility] Department [place] [address] * (ABNORMAL) Basic metabolic panel (11/08/2018 4:30 AM CDT) Sodium 134(L) 135 - 145 mmol/L [facility] ([place]) Potassium, pl 3.5 3.3 - 4.9 mmol/L [facility] ([place]) Chloride 104 97 - 110 mmol/L [facility] ([place]) CO2 19(L) 22 - 32 mmol/L [facility] ([place]) Anion gap 12 2 - 15 mmol/L [facility] ([place]) BUN 3(L) 8 - 25 mg/dL [facility] ([place]) Creatinine 0.26(L) 0.60 - 1.10 mg/dL [facility] ([place]) Glucose 171 70 - 199 mg/dL [facility] ([place]) Comment: Interpretive Data Fasting glucose [...] mg/dL [facility] ([place]) Blood specimen (specimen) 11/08/2018 4:30 AM CDT 11/08/2018 4:34 AM CDT Gio Sewell MD LAB BLOOD ORDERABLES Final Re sult Performing Organization Address City/[facility]/ZIP Co de Phone Number TOMY [facility] ([place]) 1 [facility] [place] [address] * (ABNORMAL) Phosphorus (11/08/2018 4:30 AM CDT) Phosphorus, pl 2.2(L) 2.3 - 4.5 mg/dL TOMY [facility] ([place]) Blood specimen (specimen) 11/08/2018 4:30 AM CDT 11/08/2018 4:34 AM CDT Gio Sewell MD LAB BLOOD ORDERABLES Final Re sult Performing Organization Address [facility] Co de Phone Number TOMY SAHU ([place]) 1 [facility] [place] [address] * Magnesium (11/08/2018 4:30 AM CDT) Magnesium 2.0 1.6 - 2.4 mg/dL TOMY [facility] ([place]) Blood specimen (specimen) 11/08/2018 4:30 AM CDT 11/08/2018 4:34 AM CDT Gio Sewell MD LAB BLOOD ORDERABLES Final Re sult Performing Organization Address City/[facility] Co de Phone Number TOMY SAHU ([place]) 1 [facility] [place] [employer] [address] * (ABNORMAL) CBC with auto differential (11/08/2018 4:30 AM CDT) WBC 12.5(H) 3.8 - 9.9 K/cumm [facility] ([place]) Hgb 11.3(L) 11.9 - 15.5 g/dL [facility] ([place]) Hct 30.9(L) 35.6 - 45.5 % [facility] ([place]) Plt 358 150 - 400 K/cumm [facility] ([place]) MPV 8.5(L) 9.1 - 12.3 fL [facility] ([place]) RBC 3.74(L) 3.90 - 5.20 M/cumm [facility] ([place]) MCV 82.6 81.3 - 96.4 fL [facility] ([place]) MCH 30.2 27.1 - 33.3 pg [facility] ([place]) MCHC 36.6(H) 32.3 - 35.7 g/dL [facility] ([place]) RDW CV 13.2 11.1 - 14.9 % [facility] ([place]) RDW SD 39.8 35.7 - 48.1 fL [facility] ([place]) NRBC abs 0.00 0.00 - 0.01 K/cumm [facility] ([place]) Blood specimen (specimen) 11/08/2018 4:30 AM CDT 11/08/2018 4:34 AM CDT us Gio Sewell MD LAB BLOOD ORDERABLES Final Re sult [facility] ([place]) 1 [facility] Department [place] [address] * (ABNORMAL) POCT glucose (11/08/2018 3:00 AM CDT) Glucose, POC 138(H) 71 - 98 mg/dL [facility] ([place]) Blood specimen (specimen) 11/08/2018 3:00 AM CDT 11/08/2018 3:00 AM CDT us Mann Paris Jr., MD LAB POCT ORDERABLES - DEVICE Final Result Performing Organization Address [facility] Co de Phone Number TOMY SAHU ([place]) 1 [facility] [employer] [address] * (ABNORMAL) POCT glucose (11/08/2018 1:56 AM CDT) Glucose, POC 139(H) 71 - 98 mg/dL [facility] Blood specimen (specimen) 11/08/2018 1:56 AM CDT 11/08/2018 1:56 AM CDT us Mann Paris Jr., MD LAB POCT ORDERABLES - DEVICE Final Result Performing Organization Address [facility] de Phone Number TOMY SAHU ([place]) 1 [facility] [employer] [address] * (ABNORMAL) POCT glucose (11/08/2018 12:56 AM CDT) Glucose, POC 137(H) 71 - 98 mg/dL [facility] Blood specimen (specimen) 11/08/2018 12:56 AM CDT 11/08/2018 12:56 AM CDT us Mann Paris Jr., MD LAB POCT ORDERABLES - DEVICE Final Result Performing Organization Address [facility] de Phone Number TOMY SAHU ([place]) 1 [facility] [place] [employer] [place] [address] * eGFR (11/08/2018 12:31 AM CDT) eGFR 170 mL/min/1.[address] [facility] Comment: Interpretive Data Reference Interval Normal ?>/= 90 mL/min/1.73m2 Mildly decreased* ? 60 - 89 mL/min/1.73m2 Mildly to moderately decreased ?45 - 59 mL/min/1.73m2 Moderately to severely decreased ??30 - 44 mL/min/1.73m2 Severely decreased ?15 - 29 mL/min/1.73m2 Kidney Failure ?< 15 ??mL/min/1.73m2 *Relative to young adult level If -Liberian multiply value by 1.16. Estimated glomerular filtration [...] was last reviewed 2015. Blood specimen (specimen) 11/08/2018 12:31 AM CDT 11/08/2018 12:31 AM CDT us Gio Sewell MD LAB BLOOD ORDERABLES Final Re sult [facility] ([place]) 1 [facility] Department [place] [address] * (ABNORMAL) Basic metabolic panel (11/08/2018 12:31 AM CDT) Sodium 135 135 - 145 mmol/L [facility] ([place]) Potassium, pl 3.3 3.3 - 4.9 mmol/L [facility] ([place]) Chloride 105 97 - 110 mmol/L [facility] ([place]) CO2 19(L) 22 - 32 mmol/L [facility] ([place]) Anion gap 11 2 - 15 mmol/L [facility] ([place]) BUN 5(L) 8 - 25 mg/dL [facility] ([place]) Creatinine 0.26(L) 0.60 - 1.10 mg/dL [facility] ([place]) Glucose 119 70 - 199 mg/dL [facility] ([place]) Comment: Interpretive Data Fasting [...] mg/dL [facility] ([place]) Blood specimen (specimen) 11/08/2018 12:31 AM CDT 11/08/2018 12:31 AM CDT Gio Sewell MD LAB BLOOD ORDERABLES Final Re sult Performing Organization Address City/[facility]/ZIP Co de Phone Number TOMY [facility] ([place]) 1 [facility] [employer] [place] [place] [address] * (ABNORMAL) Phosphorus (11/08/2018 12:31 AM CDT) Phosphorus, pl 1.8(L) 2.3 - 4.5 mg/dL [facility] ([place]) Blood specimen (specimen) 11/08/2018 12:31 AM CDT 11/08/2018 12:31 AM CDT Gio Sewell MD LAB BLOOD ORDERABLES Final Re sult TOMY SAHU ([place]) 1 [facility] [employer] [place] [address] * Magnesium (11/08/2018 12:31 AM CDT) Magnesium 2.3 1.6 - 2.4 mg/dL [facility] ([place]) Blood specimen (specimen) 11/08/2018 12:31 AM CDT 11/08/2018 12:31 AM CDT Gio Sewell MD LAB BLOOD ORDERABLES Final Re sult Performing Organization Address [facility] Co de Phone Number TOMY SAHU ([place]) 1 [facility] [employer] [place] [address] * (ABNORMAL) POCT glucose (11/08/2018 12:28 AM CDT) Glucose, POC 107(H) 71 - 98 mg/dL [facility] ([place]) Blood specimen (specimen) 11/08/2018 12:28 AM CDT 11/08/2018 12:28 AM CDT us Mann Paris Jr., MD LAB POCT ORDERABLES - DEVICE Final Result Performing Organization Address [facility] de Phone Number TOMY SAHU ([place]) 1 [facility] [employer] [place] [address] * (ABNORMAL) POCT glucose (11/08/2018 12:12 AM CDT) Glucose, POC 62(L) 71 - 98 mg/dL [facility] ([place] Blood specimen (specimen) 11/08/2018 12:12 AM CDT 11/08/2018 12:12 AM CDT us Mann Paris Jr., MD LAB POCT ORDERABLES - DEVICE Final Result Performing Organization Address [facility] Co de Phone Number TOMY SAHU ([place]) 1 [facility] [employer] [place] [address] * POCT glucose (11/07/2018 11:08 PM CDT) Glucose, POC 91 71 - 98 mg/dL [facility] ([place] Blood specimen (specimen) 11/07/2018 11:08 PM CDT 11/07/2018 11:08 PM CDT us Mann Paris Jr., MD LAB POCT ORDERABLES - DEVICE Final Result Performing Organization Address [facility]/ZIP Co de Phone Number TOMY SAHU ([place]) 1 [facility] [employer] [place] [address] * (ABNORMAL) POCT glucose (11/07/2018 10:00 PM CDT) Pathologist [facility] Glucose, POC 128(H) 71 - 98 mg/dL TOMY SAHU ([place]) Blood specimen (specimen) 11/07/2018 10:00 PM CDT 11/07/2018 10:00 PM CDT us Mann Paris Jr., MD LAB POCT ORDERABLES - DEVICE Final Result Performing Organization Address [facility] Co de Phone Number TOMY SAHU ([place]) 1 [facility] [employer] [place] [address] * (ABNORMAL) POCT glucose (11/07/2018 8:57 PM CDT) [facility] Glucose, POC 155(H) 71 - 98 mg/dL TOMY [facility] ([place]) Blood specimen (specimen) 11/07/2018 8:57 PM CDT 11/07/2018 8:57 PM CDT us Mann Paris Jr., MD LAB POCT ORDERABLES - DEVICE Final Result Performing Organization Address [facility] Co de Phone Number TOMY SAHU ([place]) 1 [facility] [employer] [place] [address] * eGFR (11/07/2018 8:28 PM CDT) eGFR 161 mL/min/1.[address] [facility] ([place]) Comment: Interpretive Data Reference Interval Normal ?>/= 90 mL/min/1.73m2 Mildly decreased* ? 60 - 89 mL/min/1.73m2 Mildly to moderately decreased ?45 - 59 mL/min/1.73m2 Moderately to severely decreased ??30 - 44 mL/min/1.73m2 Severely decreased ?15 - 29 mL/min/1.73m2 Kidney Failure ?< 15 ??mL/min/1.73m2 *Relative to young adult level If -Liberian multiply value by 1.16. Estimated glomerular filtration [...] was last reviewed 2015. Blood specimen (specimen) 11/07/2018 8:28 PM CDT 11/07/2018 8:40 PM CDT us Mann Paris Jr., MD LAB BLOOD ORDERABLE S Final Result Performing Organization Address City/[facility]/ZIP Co de Phone Number TOMY SAHU ([place]) 1 [facility] [employer] [place] [address] * Phosphorus (11/07/2018 8:28 PM CDT) Phosphorus, pl 2.3 2.3 - 4.5 mg/dL TOMY [facility] ([place]) Blood specimen (specimen) 11/07/2018 8:28 PM CDT 11/07/2018 8:43 PM CDT us Gio Sewell MD LAB BLOOD ORDERABLES Final Re sult TOMY SAHU ([place]) 1 [facility] [employer] [place] [address] * (ABNORMAL) Magnesium (11/07/2018 8:28 PM CDT) Magnesium 1.5(L) 1.6 - 2.4 mg/dL TOMY SAHU ([place]) Blood specimen (specimen) 11/07/2018 8:28 PM CDT 11/07/2018 8:43 PM CDT Gio Sewell MD LAB BLOOD ORDERABLES Final Re sult [facility] ([place]) 1 [facility] Department [place] [address] * (ABNORMAL) Basic metabolic panel (11/07/2018 8:28 PM CDT) Sodium 137 135 - 145 mmol/L [facility] ([place]) Potassium, pl 3.6 3.3 - 4.9 mmol/L [facility] ([place]) Comment: Hemolysis present. ??Results may be affected. Slightly Hemolyzed Specimen Chloride 103 97 - 110 mmol/L [facility] ([place]) CO2 16(L) 22 - 32 mmol/L [facility] ([place]) Anion gap 18(H) 2 - 15 mmol/L [facility] ([place]) BUN 5(L) 8 - 25 mg/dL [facility] ([place]) Creatinine 0.31(L) 0.60 - 1.10 mg/dL [facility] ([place]) Glucose 198 70 - 199 mg/dL [facility] ([place]) [...] mg/dL [facility] ([place]) Blood specimen (specimen) 11/07/2018 8:28 PM CDT 11/07/2018 8:40 PM CDT Gio Sewell MD LAB BLOOD ORDERABLES Final Re sult Performing Organization Address [facility]/ZIP Co de Phone Number TOMY SAHU ([place]) 1 [facility] [employer] [place] [address] * (ABNORMAL) POCT glucose (11/07/2018 8:13 PM CDT) Glucose, POC 150(H) 71 - 98 mg/dL [facility] ([place]) Blood specimen (specimen) 11/07/2018 8:13 PM CDT 11/07/2018 8:13 PM CDT us Mann Paris Jr., MD LAB POCT ORDERABLES - DEVICE Final Result Performing Organization Address [facility] Co de Phone Number TOMY SAHU ([place]) 1 [facility] [employer] [place] [address] * (ABNORMAL) POCT glucose (11/07/2018 7:04 PM CDT) Glucose, POC 192(H) 71 - 98 mg/dL TOMY SAHU ([place]) Blood specimen (specimen) 11/07/2018 7:04 PM CDT 11/07/2018 7:04 PM CDT us Mann Paris Jr., MD LAB POCT ORDERABLES - DEVICE Final Result Performing Organization Address [facility] Co de Phone Number TOMY SAHU ([place]) 1 [facility] [employer] [place] [address] * (ABNORMAL) POCT glucose (11/07/2018 6:11 PM CDT) Glucose, POC 158(H) 71 - 98 mg/dL TOMY [facility] ([place]) Blood specimen (specimen) 11/07/2018 6:11 PM CDT 11/07/2018 6:11 PM CDT us Mann Paris Jr., MD LAB POCT ORDERABLES - DEVICE Final Result TOMY SAHU ([place]) 1 [facility] [place] [address] * MRSA culture Nasal (11/07/2018 5:49 PM CDT) Report Final Report: Negative TOMY SAHU ([place]) Comment:Testing performed by : [facility], 1 [facility], [place]., [address] Nasal 11/07/2018 5:49 PM CDT 11/07/2018 10:21 PM CDT Narrative TOMY SAHU ([place]) - 11/09/2018 7:41 AM CDT Testing performed by [facility] ([phone]). Tavo Ochoa MD LAB MICROBIOLOGY - GENE RAL ORDERABLES Final Result Performing Organization Address [facility] Co de Phone Number TOMY SAHU ([place]) 1 [facility] [employer] [place] [address] * (ABNORMAL) POCT glucose (11/07/2018 5:21 PM CDT) Glucose, POC 122(H) 71 - 98 mg/dL TOMY SAHU ([place]) Blood specimen (specimen) 11/07/2018 5:21 PM CDT 11/07/2018 5:21 PM CDT Tavo Ochoa MD LAB POCT ORDERABLES - D EVICE Final Result TOMY SAHU ([place]) 1 [facility] Department [place] [employer] [place] [address] * (ABNORMAL) POCT glucose (11/07/2018 4:11 PM CDT) Glucose, POC 197(H) 71 - 98 mg/dL TOMY SAHU ([place]) Blood specimen (specimen) 11/07/2018 4:11 PM CDT 11/07/2018 4:11 PM CDT Tavo Ochoa MD LAB POCT ORDERABLES - D EVICE Final Result Performing Organization Address [facility]/ZIP Co de Phone Number TOMY SAHU ([place]) 1 [facility] [place] [employer] [place] [address] * (ABNORMAL) Urinalysis, microscopic only (11/07/2018 3:02 PM CDT) WBC, ur 0-5 0 - 5 /HPF [facility] ([place]) RBC, ur 0-5 0 - 2 /HPF [facility] ([place]) Epithelial cells, squamous, ur 1-5 0 - 5 /HPF [facility] ([place]) Bacteria, ur 4+(A) [facility] ([place]) Hyaline casts, ur 1-5 0 - 10 /LPF [facility] ([place]) Urine 11/07/2018 3:02 PM CDT 11/07/2018 3:04 PM CDT Tavo Ochoa MD LAB URINE ORDERABLES Fi nal Result Performing Organization Address [facility] Co de Phone Number TOMY SAHU ([place]) 1 [facility] [employer] [place] [address] * (ABNORMAL) Urinalysis reflex to microscopic and culture Urine (11/07/2018 3:02 PM CDT) Color, ur Yellow Yellow [facility] ([place]) Clarity, ur Clear Clear [facility] ([place]) Specific gravity, ur 1.026(H) 1.010 - 1.025 [facility] ([place]) pH, urine 6.5 [facility] ([place]) Protein, ur ql Negative Negative [facility] ([place]) Glucose, ur ql 3+(A) Negative [facility] ([place]) Ketones, ur 3+(A) Negative [facility] ([place]) Bilirubin, ur Negative Negative [facility] ([place]) Blood, ur Negative Negative [facility] ([place]) Urobilinogen, ur 1.0 mg/dL [facility] ([place]) Nitrite, ur Positive(A) Negative TOMY SAHU ([place]) Leukocyte esterase, ur Negative Negative [facility] ([place]) Urine 11/07/2018 3:02 PM CDT 11/07/2018 3:04 PM CDT Narrative TOMY SAHU ([place]) - 11/07/2018 3:19 PM CDT ?? Urine pH is affected by diet, medications, systemic acid-base disturbances, and renal tubular function. ??pH may affect urinary stone formation. ??For example, urine pH below 6.0 may help reduce the tendency for calcium phosphate stones and pH greater than 6.0 may reduce the tendency for uric acid stone formation. Source: [facility] [employer]. Last revised 05-13-2017 Urine pH is affected by diet, medications, systemic acid-base disturbances, and renal tubular function. ??pH may affect urinary stone formation. ??For example, urine pH below 6.0 may help reduce the tendency for calcium phosphate stones and pH greater than 6.0 may reduce the tendency for uric acid stone formation. Source: [facility]. Last revised 05-13-2017 Tavo Ochoa MD LAB MICROBIOLOGY - GENE RAL ORDERABLES Final Result Performing Organization Address City/[facility]/ZIP Co de Phone Number TOMY SAHU ([place]) [address] [place] [address] [place] [address] * (ABNORMAL) POCT glucose (11/07/2018 1:59 PM CDT) [facility] Glucose, POC 228(H) 71 - 98 mg/dL TOMY SAHU ([place]) Blood specimen (specimen) 11/07/2018 1:59 PM CDT 11/07/2018 1:59 PM CDT Tavo Ochoa MD LAB POCT ORDERABLES - D EVICE Final Result TOMY SAHU ([place]) 1 [place] [address] * (ABNORMAL) Beta-hydroxybutyrate (11/07/2018 1:51 PM CDT) Beta-Hydroxybu tyrate 3.7(H) <=0.5 mmol/L TOMY SAHU ([place]) Comment:Testing performed by : [facility], [address] [place] [address], [place]., [address] Blood specimen (specimen) 11/07/2018 1:51 PM CDT 11/08/2018 10:06 AM CDT Tavo Ochoa MD LAB BLOOD ORDERABLES Fi nal Result TOMY [facility]ERTO ([place]) 1 [facility] Department [place] [address] * eGFR (11/07/2018 1:51 PM CDT) eGFR 156 mL/min/1.7 3 m2 TOMY SAHU ([place]) Comment: Interpretive Data Reference Interval Normal ?>/= 90 mL/min/1.73m2 Mildly decreased* ? 60 - 89 mL/min/1.73m2 Mildly to moderately decreased ?45 - 59 mL/min/1.73m2 Moderately to severely decreased ??30 - 44 mL/min/1.73m2 Severely decreased ?15 - 29 mL/min/1.73m2 Kidney Failure ?< 15 ??mL/min/1.73m2 *Relative to young adult level If -Liberian multiply value by 1.16. Estimated glomerular filtration [...] was last reviewed 2015. Blood specimen (specimen) 11/07/2018 1:51 PM CDT 11/07/2018 1:54 PM CDT us Tavo Ochoa MD LAB BLOOD ORDERABLES Fi nal Result [facility] ([place]) 1 [facility] Department [place] [address] * Differential, auto (11/07/2018 1:51 PM CDT) Neutrophil abs 5.7 1.7 - 6.5 K/cumm [facility] ([place]) Imm gran abs 0.1 0.0 - 0.1 K/cumm [facility] ([place]) Lymphocyte abs 1.0 0.8 - 3.3 K/cumm [facility] ([place]) Monocyte abs 0.5 0.2 - 0.8 K/cumm [facility] ([place]) Eosinophil abs 0.0 0.0 - 0.5 K/cumm [facility] ([place]) Basophil abs 0.0 0.0 - 0.1 K/cumm [facility] ([place]) Neutrophil pct 77.5 % [facility] ([place]) Comment: Interpretive Data Percent cell count reference ranges are not reported, since discordance with absolute values may lead to misinterpretation of CBC data. Current Interpretive Data was last revised on 2017. Imm gran pct 1.0 % [facility] ([place]) Comment: Interpretive Data Percent cell count reference ranges are not reported, since discordance with absolute values may lead to misinterpretation of CBC data. Current Interpretive Data was last revised on 2017. Lymphocyte pct 14.3 % [facility] ([place]) Comment: Interpretive Data Percent cell count reference ranges are not reported, since discordance with absolute values may lead to misinterpretation of CBC data. Current Interpretive Data was last revised on 2017. Monocyte pct 6.8 % [facility] ([place]) Comment: Interpretive Data [...] on 2017. Basophil pct 0.3 % TOMY SAHU ([place]) Comment: Interpretive Data Percent cell count reference ranges are not reported, since discordance with absolute values may lead to misinterpretation of CBC data. Current Interpretive Data was last revised on 2017. Blood specimen (specimen) 11/07/2018 1:51 PM CDT 11/07/2018 1:54 PM CDT Tavo Ochoa MD LAB BLOOD ORDERABLES Fi nal Result TOMY SAHU ([place]) 1 [facility] Department [place] [address] * (ABNORMAL) hCG, blood, quantitative (11/07/2018 1:51 PM CDT) hCG, quant 21,388.0( H) 0.0 - 5.0 IUnits/L TOMY SAHU ([place]) Comment: Interpretive Data Non- Female premenopausal: < or = 5.0 IUnits/L Men: < 5.0 IUnits/L Weeks of Gestation ? Reference Interval ?? 3 to 6 ? 5.8-31,795 IUnits/L ?? 7 to 10 ? 3,697-186,977 IUnits/L ??12 to 15 ?27,832- 70,791 IUnits/L ??16 to 18 ? 9,040- 58,179 IUnits/L Current Interpretive Data was last revised on 2017. Blood specimen (specimen) 11/07/2018 1:51 PM CDT 11/07/2018 1:54 PM CDT us Tavo Ochoa MD LAB BLOOD ORDERABLES Fi nal Result TOMY SAHU ([place]) 1 [facility] Department [place] [employer] [place] [address] * Sepsis Lactate w/ Reflex (11/07/2018 1:51 PM CDT) Pathologist [facility] Sepsis Lactate 1.2 0.7 - 2.0 mmol/L [facility] ([place]) Blood specimen (specimen) 11/07/2018 1:51 PM CDT 11/07/2018 1:54 PM CDT Tavo Ochoa MD LAB BLOOD ORDERABLES Fi nal Result Performing Organization Address [facility] Co de Phone Number TOMY SAHU ([place]) 1 [facility] Department [place] [employer] [place] [address] * (ABNORMAL) Comprehensive metabolic panel (11/07/2018 1:51 PM CDT) Pathologist [facility] Sodium 137 135 - 145 mmol/L [facility] ([place]) Potassium, pl 3.2(L) 3.3 - 4.9 mmol/L [facility] ([place]) Chloride 99 97 - 110 mmol/L [facility] ([place]) CO2 20(L) 22 - 32 mmol/L [facility] ([place]) Anion gap 18(H) 2 - 15 mmol/L [facility] ([place]) BUN 8 8 - 25 mg/dL [facility] ([place]) Creatinine 0.34(L) 0.60 - 1.10 mg/dL [facility] ([place]) Glucose 257(H) 70 - 199 mg/dL [facility] ([place]) [...] Units/L [facility] ([place]) Blood specimen (specimen) 11/07/2018 1:51 PM CDT 11/07/2018 1:54 PM CDT us Tavo Ochoa MD LAB BLOOD ORDERABLES Fi nal Result [facility] ([place]) 1 [facility] Department [place] [address] * (ABNORMAL) CBC with auto differential (11/07/2018 1:51 PM CDT) WBC 7.4 3.8 - 9.9 K/cumm [facility] ([place]) Hgb 13.3 11.9 - 15.5 g/dL [facility] ([place]) Hct 37.1 35.6 - 45.5 % [facility] ([place]) Plt 439(H) 150 - 400 K/cumm [facility] ([place]) MPV 8.5(L) 9.1 - 12.3 fL [facility] ([place]) RBC 4.49 3.90 - 5.20 M/cumm [facility] ([place]) MCV 82.6 81.3 - 96.4 fL [facility] ([place]) MCH 29.6 27.1 - 33.3 pg [facility] ([place]) MCHC 35.8(H) 32.3 - 35.7 g/dL [facility] ([place]) RDW CV 13.3 11.1 - 14.9 % [facility] ([place]) RDW SD 39.8 35.7 - 48.1 fL TOMY SAHU ([place]) NRBC abs 0.00 0.00 - 0.01 K/cumm TOMY SAHU ([place]) Blood specimen (specimen) 11/07/2018 1:51 PM CDT 11/07/2018 1:54 PM CDT us Tavo Ochoa MD LAB BLOOD ORDERABLES Fi nal Result TOMY [facility]ERTO ([place]) 1 [facility] Department [place] [address] documented in this encounter Visit Diagnoses Diagnosis Diabetic ketoacidosis with coma associated with type 1 diabetes mellitus (CMS/HCC) (HCC)- Primary Type 1 diabetes mellitus with ketoacidosis without coma (HCC) Vomiting affecting Hypokalemia Hypopotassemia Dehydration Hyperemesis gravidarum with metabolic disturbance documented in this encounter Administered Medications Inactive Administered Medications - up to 3 most recent administrations Medication Order MAR Action Action Date Dose Rate Site dextrose (D10W) 10% bolus 1-500 mL 1-500 mL, intravenous, at 2-2,000 mL/hr, Administer over 15-30 Minutes, As needed, blood glucose less than 70 mg/dL, Starting on Wed11/07/18 at 1935, Dose as determined by GlucoStabilizer dka order. 25 gm = 250 mL 50 gm = 500 mL, Indications: HypoglyemiaIndications:H ypoglyemia New Bag 11/08/2018 12:23 AM CDT 125 mL 999 mL/hr dextrose 5% and sodium chloride 0.45% infusion (premix) 100 mL/hr, intravenous, Continuous, Starting on Wed11/08/18 at 0245 New Bag 11/08/2018 2:10 AM CDT 100 mL/hr 100 mL/hr dextrose 5% infusion 100 mL/hr, intravenous, Continuous, Starting on Wed11/07/18 at 2015, Start when blood glucose less than 250 mg/dL and decrease rate of previous IV fluid infusion order. Notify MD when blood glucose less than 250 mg/dL and adjusting IV fluids. Restarted 11/07/2018 9:30 PM CDT 100 mL/hr 100 mL/hr famotidine (PEPCID) injection 20 mg 20 mg, intravenous, Administer over 2 Minutes, 2 times daily, First dose on Wed11/07/18 at 2100, Dilute to 5 ml with NS and administer IVpush over at least 2 minutes. Given 11/07/2018 9:46 PM CDT 20 mg glucagon injection 1 mg 1 mg, intramuscular, Administer over 1 Minutes, Every 30 min PRN, low blood sugar, blood glucose less than 70 mg/dL AND no IV access AND unable to take PO glucose/jiuce., Starting on Wed11/08/18 at 0532, After Glucagon is administered, position patient on [...] pen injection 10 Units 10 Units, subcutaneous, Once, On Wed11/08/18 at 0245, For 1 dose, Do not mix with other insulins Given 11/08/2018 2:34 AM CDT 10 Units Right Upper Arm insulin glargine (LANTUS,BASAGLAR) pen injection 18 Units 18 Units (rounded from 17.7 Units = 0.3 Units/kg ? 59 kg), subcutaneous, Every 24 hours, First dose on Wed11/08/18 at 0900, Discontinue insulin drip 2 hours after administration of dose. Do not mix with other insulins, Indications: Diabetes MellitusIndications:Diab etes Mellitus Given 11/08/2018 9:25 AM CDT 18 Units Left Upper Arm insulin lispro (HumaLOG) pen injection 1-3 Units 1-3 Units, subcutaneous, 3 times daily with meals, First dose on Wed11/08/18 at 0800, Blood Sugar Low Dose meal time - PO patients 175 or less No Insulin 176 - 200 1 unit 201 - 250 2 units 251 - 299 3 units Greater than 299 Call MD for hyperglycemia management instructions Do NOT hold for NPO status., Indications: Diabetes MellitusIndications:Diab etes Mellitus Given 11/08/2018 12:04 PM CDT 2 Units Left Upper Arm insulin lispro (HumaLOG) pen injection 1-3 Units 1-3 Units, subcutaneous, Nightly, First dose on Wed11/08/18 at 2100, Blood Sugar Mid Dose PM [...] times daily with meals, First dose on Wed11/08/18 at 1300, Blood Sugar Mid Dose meal time - PO patients 139 or less No insulin 140 - 175 1 unit 176 - 200 2 unit 201 - 250 3 units 251 - 299 5 units Greater than 299 Call MD for hyperglycemia management instructions Do NOT hold for NPO status., Indications: Diabetes MellitusIndications:Diab etes Mellitus insulin lispro (HumaLOG) pen injection 2 Units 2 Units, subcutaneous, 3 times daily with meals, First dose on Wed11/08/18 at 1300, If BG 100 mg/dl or more, give [...] mL/hr), 1 units/mL, intravenous, Titrated, Starting on Wed11/07/18 at 1730, Until Wed11/07/18 at 1942, Indications: Hyperglycemia, Desired Range (mg/dL): 130-180 general patients, Multiplier: 0.01, Adjust rate per GlucoStabilizer program for dka order When new IV tubing is used, completely prime the tubing. Once primed, waste an additional 20 ml of insulin infusion using the IV pump prior to connecting to patient., RoutineIndications:Hyper glycemia Restarted 11/07/2018 9:00 PM CDT 4.8 Units/hr 4.8 mL/hr Rate/Dose Change 11/07/2018 7:10 PM CDT 4 Units/hr 4 mL/hr New Bag 11/07/2018 6:12 PM CDT 2 Units/hr 2 mL/hr insulin regular (HumuLIN R, NovoLIN R) 100 Units in sodium chloride 0.9% 100 mL (1 Units/mL) infusion 0-30 Units/hr (0-30 mL/hr), 1 units/mL, intravenous, Titrated, Starting on Wed11/07/18 at 2015, Until Wed11/08/18 at 0309, Indications: Hyperglycemia, Desired Range (mg/dL): 130-180 general patients, Multiplier: 0.01, Adjust rate per GlucoStabilizer program for dka order When new IV tubing is used, completely prime the tubing. Once primed, waste an additional 20 ml of insulin infusion using the IV pump prior to connecting to patient., RoutineIndications:Hyperglyc emia Rate/Dose Change 11/07/2018 11:10 PM CDT 1.2 Units/hr 1.2 mL/hr Rate/Dose Change 11/07/2018 10:00 PM CDT 3.4 Units/hr 3.4 mL/hr insulin regular (HumuLIN R, NovoLIN R) injection 6 Units 6 Units, intravenous, Once, On Wed11/07/18 at 1507, For 1 dose Given 11/07/2018 3:40 PM CDT 6 Units magnesium sulfate 2 g/50 mL in water (premix) 2 g 2 g, intravenous, Administer over 60 Minutes, Once, On Wed11/07/18 at 2015, For 1 dose, Do not give if serum Cr greater than 2.5 mg/dL., Indications: Magnesium RepletionIndications:Magnesium Repletion New Bag 11/07/2018 9:33 PM CDT 2 g metoclopramide (REGLAN) injection 10 mg 10 mg, intravenous, Administer over 1 Minutes, Once, On Wed11/07/18 at 1337, For 1 dose Given 11/07/2018 2:37 PM CDT 10 mg metoclopramide (REGLAN) injection 10 mg 10 mg, intravenous, Administer over 1 Minutes, Every 8 hours scheduled, First dose on Wed11/07/18 at 2200 Given 11/08/2018 5:43 AM CDT 10 mg Given 11/07/2018 9:43 PM CDT 10 mg potassium chloride 40 mEq in sodium chloride 0.9% 500 mL IVPB 40 mEq, intravenous, at 130 mL/hr, Administer over 4 Hours, Once, On Wed11/07/18 at 2100, For 1 dose, X 1 dose per pharmacy electrolyte replacement protocol for K+=3.2 on 11/07/18, Indications: hypokalemiaIndications:hypo kalemia New Bag 11/07/2018 9:36 PM CDT 40 mEq 130 mL/hr sodium chloride 0.45% infusion 150 mL/hr, intravenous, Continuous, Starting on Wed11/07/18 at 2015, Decrease rate to 100 mL/hr when blood glucose less than 250 mg/dL. Restarted 11/07/2018 9:30 PM CDT 150 mL/hr 150 mL/hr sodium chloride 0.9% bolus 1,000 mL 1,000 mL, intravenous, at 1,000 mL/hr, Administer over 1 Hours, Once, On Wed11/07/18 at 1335, For 1 dose New Bag 11/07/2018 2:37 PM CDT 1,000 mL 1000 mL/hr sodium chloride 0.9% bolus 1,000 mL 1,000 mL, intravenous, at 1,000 mL/hr, Administer over 1 Hours, Once, On Wed11/07/18 at 1336, For 1 dose New Bag 11/07/2018 4:27 PM CDT 1,000 mL 1000 mL/hr sodium chloride 0.9% infusion 75 mL/hr, intravenous, Continuous, Starting on Wed11/07/18 at 1704 Rate/Dose Verify 11/07/2018 6:00 PM CDT 75 mL/hr 75 mL/hr New Bag 11/07/2018 5:54 PM CDT 75 mL/hr 75 mL/hr documented in this encounter Historical Medications * This list may reflect changes made after this encounter. insulin lispro (HumaLOG) 100 unit/mL injection Inject under the skin 3 (three) times a day before meals Takes 1 unit for every 8 grams of carbohydrate 07/10/201 9 insulin glargine (LANTUS,BASAGLAR ) 100 unit/mL (3 mL) insulin pen Inject 14 Units under the skin daily 1 added in this encounter Active and Recently Administered Medications Times are shown in CDT. Scheduled Medication Order 11/06/2018 11/07/2018 11/08/2018 famotidine (PEPCID) injection 20 mg 20 mg, intravenous, Administer over 2 Minutes, 2 times daily, First dose on Wed11/07/18 at 2100, Dilute to 5 ml with NS and administer IVpush over at least 2 minutes. 2146 (Given - Provider: Nallely Chiu, RN) 0923 (Not Given - Provider: Sherif Blanco, MARY - Reason: Patient/family refused) insulin glargine (LANTUS,BASAGLAR) pen injection 10 Units (COMPLETED) 10 Units, subcutaneous, Once, On Wed11/08/18 at 0245, For 1 dose, Do not mix with other insulins 0234 (Given - Provid er: Nallely Chiu RN) insulin glargine (LANTUS,BASAGLAR) pen injection 18 Units 18 Units (rounded from 17.7 Units = 0.3 Units/kg ? 59 kg), subcutaneous, Every 24 hours, First dose on Wed11/08/18 at 0900, Discontinue insulin drip 2 hours after administration of dose. Do not mix with other insulins, Indications: Diabetes Mellitus 0925 (Given - Provid er: Sherif Blanco, MARY) insulin lispro (HumaLOG) pen injection 1-3 Units (CANCELED) 1-3 Units, subcutaneous, 3 times daily with meals, First dose on Wed11/08/18 at 0800, Blood Sugar Low Dose meal time - PO patients 175 or less No Insulin 176 - 200 1 unit 201 - 250 2 units 251 - 299 3 units Greater than 299 Call MD for hyperglycemia management instructions Do NOT hold for NPO status., Indications: Diabetes Mellitus 0819 (Not Given - Provider: Sherif Blanco, RN - Reason: Order parameters not met)1204 (Given - Provider: Sherif Blanco, MARY) insulin lispro (HumaLOG) pen injection 1-3 Units 1-3 Units, subcutaneous, Nightly, First dose on Wed11/08/18 at 2100, Blood Sugar Mid Dose PM [...] times daily with meals, First dose on Wed11/08/18 at 1300, Blood Sugar Mid Dose meal time - PO patients 139 or less No insulin 140 - 175 1 unit 176 - 200 2 unit 201 - 250 3 units 251 - 299 5 units Greater than 299 Call MD for hyperglycemia management instructions Do NOT hold for NPO status., Indications: Diabetes Mellitus 1300 (Not Given - Provider: Sherif Blanco RN - Reason: Change in Patient Status - Comment: Pt leaving AMA) insulin lispro (HumaLOG) pen injection 2 Units 2 Units, subcutaneous, 3 times daily with meals, First dose on Wed11/08/18 at 1300, If BG 100 mg/dl or more, give [...] in patient's insulin dose., Indications: Diabetes Mellitus 1300 (Not Given - Provider: Sherif Blanco RN - Reason: Other - Comment: Pt has eaten and is leaving AMA) insulin regular (HumuLIN R, NovoLIN R) injection 6 Units (COMPLETED) 6 Units, intravenous, Once, On Wed11/07/18 at 1507, For 1 dose 1540 (Given - Provider: Concepcion Emerson RN) magnesium sulfate 2 g/50 mL in water (premix) 2 g (COMPLETED) 2 g, intravenous, Administer over 60 Minutes, Once, On Wed11/07/18 at 2015, For 1 dose, Do not give if serum Cr greater than 2.5 mg/dL., Indications: Magnesium Repletion 2132 (New Bag - Provider: Nallely Chiu RN) metoclopramide (REGLAN) injection 10 mg (COMPLETED) 10 mg, intravenous, Administer over 1 Minutes, Once, On Wed11/07/18 at 1337, For 1 dose 1437 (Given - Provider: Pau Lopez RN) metoclopramide (REGLAN) injection 10 mg 10 mg, intravenous, Administer over 1 Minutes, Every 8 hours scheduled, First dose on Wed11/07/18 at 2200 2143 (Given - Provider: Nallely Chiu RN) 0543 (Given - Provider: Nallely Chiu RN) potassium chloride 40 mEq in sodium chloride 0.9% 500 mL IVPB (COMPLETED) 40 mEq, intravenous, at 130 mL/hr, Administer over 4 Hours, Once, On Wed11/07/18 at 2100, For 1 dose, X 1 dose per pharmacy electrolyte replacement protocol for K+=3.2 on 11/07/18, Indications: hypokalemia 2136 (New Bag - Provider: Nallely Chiu RN) sodium chloride 0.9% bolus 1,000 mL (COMPLETED) 1,000 mL, intravenous, at 1,000 mL/hr, Administer over 1 Hours, Once, On Wed11/07/18 at 1335, For 1 dose 1437 (New Bag - Provider: Pau Lopez RN - Comment: No IV access)1625 (Stopped - Provider: Concepcion Emerson RN) sodium chloride 0.9% bolus 1,000 mL (COMPLETED) 1,000 mL, intravenous, at 1,000 mL/hr, Administer over 1 Hours, Once, On Wed11/07/18 at 1336, For 1 dose 1627 (New Bag - Provider: Concepcion Emerson RN - Comment: iv maintenance)1747 (Stopped - Provider: Concepcion Emerson RN) Continuous Medication Order 11/06/2018 11/07/2018 11/08/2018 dextrose 5% and sodium chloride 0.45% infusion (premix) 100 mL/hr, intravenous, Continuous, Starting on Wed11/08/18 at 0245 0210 (New Bag - Provider: Nallely Chiu RN)1347 (Stopped - Provider: Sherif Blanco RN) dextrose 5% infusion (CANCELED) 100 mL/hr, intravenous, Continuous, Starting on Wed11/07/18 at 2015, Start when blood glucose less than 250 mg/dL and decrease rate of previous IV fluid infusion order. Notify MD when blood glucose less than 250 mg/dL and adjusting IV fluids. 2016 (Stopped - Provider: Nallely Chiu RN - Comment: lost iv site)2129 (Restarted - Provider: Nallely Chiu RN) 209 (Stopped - Provider: Nallely Chiu, MARY) insulin regular (HumuLIN R, NovoLIN R) 100 Units in sodium chloride 0.9% 100 mL (1 Units/mL) infusion (CANCELED) 0-30 Units/hr (0-30 mL/hr), 1 units/mL, intravenous, Titrated, Starting on Wed11/07/18 at 1730, Until Wed11/07/18 at 1942, Indications: Hyperglycemia, Desired Range (mg/dL): 130-180 general patients, Multiplier: 0.01, Adjust rate per GlucoStabilizer program for dka order When new IV tubing is used, completely prime the tubing. Once primed, waste an additional 20 ml of insulin infusion using the IV pump prior to connecting to patient., Routine 1811 (New Bag - Provider: Evert Martinez RN - Comment: 20 mL of insulin flushed through tubing when started)1909 (Rate/Dose Change - Provider: Nallely Chiu RN)2017 (Stopped - Provider: Nallely Chiu RN - Comment: lost iv site)2100 (Restarted - Provider: Nallely Chiu, RN) insulin regular (HumuLIN R, NovoLIN R) 100 Units in sodium chloride 0.9% 100 mL (1 Units/mL) infusion (CANCELED) 0-30 Units/hr (0-30 mL/hr), 1 units/mL, intravenous, Titrated, Starting on Wed11/07/18 at 2015, Until Wed11/08/18 at 0309, Indications: Hyperglycemia, Desired Range (mg/dL): 130-180 general patients, Multiplier: 0.01, Adjust rate per GlucoStabilizer program for dka order When new IV tubing is used, completely prime the tubing. Once primed, waste an additional 20 ml of insulin infusion using the IV pump prior to connecting to patient., Routine 2001 (Not Given - Provider: Nallely Chiu RN - Reason: Other - Comment: same bag running)2200 (Rate/Dose Change - Provider: Nallely Chiu RN)2310 (Rate/Dose Change - Provider: Nallely Chiu RN) 0005 (Stopped - Provider: Nallely Chiu RN) sodium chloride 0.45% infusion (CANCELED) 150 mL/hr, intravenous, Continuous, Starting on Wed11/07/18 at 2015, Decrease rate to 100 mL/hr when blood glucose less than 250 mg/dL. 2015 (Stopped - Provider: Nallely Chiu RN - Comment: lost iv site)2130 (Restarted - Provider: Nallely Chiu RN) 0211 (Stopped - Provider: Nallely Chiu RN) sodium chloride 0.9% infusion (CANCELED) 75 mL/hr, intravenous, Continuous, Starting on Wed11/07/18 at 1704 1754 (New Bag - Provider: Concepcion Emerson RN)1800 (Rate/Dose Verify - Provider: Mann Cantu RN) PRN Medication Order 11/06/2018 11/07/2018 11/08/2018 dextrose (D10W) 10% bolus 1-500 mL 1-500 mL, intravenous, at 2-2,000 mL/hr, Administer over 15-30 Minutes, As needed, blood glucose less than 70 mg/dL, Starting on Wed11/07/18 at 1935, Dose as determined by GlucoStabilizer dka order. 25 gm = 250 mL 50 gm = 500 mL, Indications: Hypoglyemia 0023 (New Bag - Prov ider: Nallely Chiu RN) glucagon injection 1 mg 1 mg, intramuscular, Administer over 1 Minutes, Every 30 min PRN, low blood sugar, blood glucose less than 70 mg/dL AND no IV access AND unable to take PO glucose/jiuce., Starting on Wed11/08/18 at 0532, After Glucagon is administered, position patient on [...] Units, intravenous, As needed, hyperglycemia, Starting on 11/07/18 at 1935, Bolus per GlucoStabilizer dka order., Indications: Hyperglycemia documented in this encounter Orders Medications Ordered That Evan ht Not Have Been Administered Count Last Ordered Date First Ordered Date glucagon injection 1 mg 2 11/08/2018 07/12/2018 insulin lispro (HumaLOG) pen injection 1-2 Units 1 11/08/2018 insulin lispro (HumaLOG) pen injection 1-3 Units 1 11/08/2018 insulin lispro (HumaLOG) pen injection 1-5 Units 1 11/08/2018 insulin lispro (HumaLOG) pen injection 2 Units 1 11/08/2018 potassium, sodium phosphates (PHOS-NAK) 280-160-250 mg packet 2 packet 1 11/08/2018 dextrose (D10W) 10% bolus 1-500 mL 1 2018 dextrose (D10W) 10% bolus 250 mL 1 11/08/19 19 dextrose gel in packet 15 g 1 11/07/2018 insulin regular (HumuLIN R, NovoLIN R) 100 Units in sodium chloride 0.9% 100 mL (1 Units/mL) infusion 1 11/07/2018 insulin regular (HumuLIN R, NovoLIN R) injection 10 Units 1 11/07/2018 insulin regular bolus from bag 1-10 Units 2 11/07/2018 insulin regular bolus from bag 4-10 Units 1 11/07/2018 insulin regular bolus from bag 4-6 Units 1 11/07/2018 ondansetron ODT (ZOFRAN-ODT) 4 mg disintegrating tablet - ADS Override Pull 1 11/07/2018 potassium chloride 40 mEq in sodium chloride 0.9% 500 mL IVPB 1 11/07/2018 Lab Orders Without Results Count Last Ordered D ate First Ordered Date POCT GLUCOSE DEVICE 4 11/08/2018 11/08/19 19 Nursing Count Last Ordered Date First Orde red Date ACTIVITY 1 11/07/2018 NOTIFY PROVIDER (SPECIFY) 5 11/07/2018 NURSING COMMUNICATION 1 11/07/2018 VITAL SIGNS 2 11/07/2018 WEIGH PATIENT 2 11/07/2018 Consult Count Last Ordered Date First Orde red Date IP CONSULT TO EMERGENCY MEDICAL TECHNICIAN/DRIVER 1 11/07/2018 IV Count Last Ordered Date First Orde red Date INSERT PERIPHERAL IV 1 11/07/2018 Admission Count Last Ordered Date First Orde red Date ASSIGN PATIENT STATUS 1 11/07/2018 CORE MEASURES Count Last Ordered Date First Ord ered Date REASON FOR NO VTE PROPHYLAXIS AT ADMISSION 2 11/07/2018 ADT Patient Update Count Last Ordered Date Firs t Ordered Date ED IP DECISION TO ADMIT 1 11/07/2018 documented in this encounter 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
--- OUTSIDE RECORDS SUMMARY | 2024-05-10 18:41 | XMS_ITS | Encounter Summary ---
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
--- OUTSIDE RECORDS SUMMARY | 2024-05-10 18:42 | XMS_ITS | Encounter Summary ---
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 Name Role Phone Jolanta Freeman MD Primary Care Provider [phone] Reason for Visit * Reason Comments Vomiting nausea Encounter Details Date Type Department Care Team (Late st Contact Info) Description 01/01/2018 8:21 PM CDT - 01/04/2018 4:36 PM CDT Emergency [facility] [address] [place] [address] Kim Espitia MD [address] [place] [address] [place] [address] Gio Sewell MD [address] [place] [address] Josette Sloan MD [address] [place] [address] [place] [address] Pamela Pires MD [address] [place] [address] [place] [address] Nausea and vomiting, intractability of vomiting not specified, unspecified vomiting type (Primary Dx); Type 1 diabetes mellitus with hyperglycemia (CMS/HCC); Sinus tachycardia Discharge Disposition: Discharge to home or self care Social History Tobacco Use Types Packs/Day Years Used Date Smoking Tobacco: Never Smokeless Tobacco: Never Alcohol Use Standard Drinks/Week Comments No 0 (1 standard drink = 0.6 oz pur e alcohol) Comments No Sex and Gender Information Value Date Recorded Sex Assigned at Not on file 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 Gender Identity Not on file Sexual Orientation Not on file documented as of this encounter Last Filed Vital Signs Vital Sign Reading Time Taken Comments Blood Pressure 110/60 01/04/2018 3:22 PM CDT Pulse 78 01/04/2018 3:22 PM CDT Temperature 36.4 ??C (97.6 ??F) 01/04/2018 3:22 PM CD T Respiratory Rate 16 01/04/2018 3:22 PM CDT Oxygen Saturation 99% 01/04/2018 3:22 PM CDT Inhaled Oxygen Concentration - - Weight 51.6 kg (113 lb 12.1 oz) 018 12:23 AM CDT Height 154.9 cm (5' 1 ) 01/02/2018 12:2 3 AM CDT Body Mass Index 21.49 01/02/2018 12:23 AM CDT documented in this encounter Discharge Summaries * Pamela Pires MD - 01/04/2018 2:02 PM CDT Inpatient Discharge Summary BRIEF OVERVIEW Admitting Provider: Gio Sewell MD Discharge Provider: Pamela Pires MD Primary Care Physician at Discharge: Jolanta Freeman MD [phone] Admission Date: 01/01/2018 Discharge Date: 01/04/2018 Primary Discharge Diagnosis: Nausea and vomiting Secondary Discharge Diagnosis: Uncontrolled type 1 diabetes mellitus with hyperglycemia (CMS/HCC) Dehydration DETAILS OF HOSPITAL STAY Presenting Problem/History of Present Illness: 22-year-old female with history of type 1 diabetes presenting to the emergency department with complains of persistent nausea and vomiting . Please refer to H&P for further details Hospital Course: Nausea and vomiting: Patient started on supportive treatment with IV fluids and Zofran for nausea symptoms improved. Diabetes with hyperglycemia : Patient had hypoglycemic episode . Patient mentioned that her sugars are running low at home patient was advised to use 10 units of Lantus instead of 15 units and followup with primary care physician patient was advised to check at least the sugars 4 times a day and take the log of readings to primary care office Test Results Pending at Discharge: None Operative Procedures Performed: None Other Procedures: None Pertinent Test Results: Chest X-ray Discharge Details Physical Exam at Discharge: Discharge Condition: stable Pulse: 89 Resp: 18 BP: 117/74 Temp: 36.4 ??C (97.5 ??F) Weight: 51.6 kg (113 lb 12.1 oz) BP 117/74 (BP Location: Right arm, Patient Position: Lying) Pulse 89 Temp 36.4 ??C (97.5 ??F) (Temporal) Resp 18 Ht 154.9 cm (5' 1 ) Wt 51.6 kg (113 lb 12.1 oz) SpO2 100% BMI 21.49 kg/m?? Pertinent Exam Findings at Discharge: General appearance: Alert, oriented, in no distress. HEENT: Atraumatic, normocephalic. Pupils equal and reactive to light. Extraocular movements intact.Moist mucous membrane. CVS: S1, S2 normal Respiration: Clear to auscultation bilaterally Abdomen: Soft, nontender, nondistended, bowel sounds normoactive Extremities: No pedal edema, no calf tenderness Neuro: No focal deficits Psychiatric: Normal mood and affect Labs at discharge: Recent Results (from the past 24 hour(s)) POCT glucose Collection Time: 01/03/18 5:05 PM Result Value Ref Range Glucose, POC, bld 113 (H) 71 - 98 mg/dL Troponin T Collection Time: 01/03/18 7:14 PM Result Value Ref Range Troponin T <0.01 0.00 - 0.01 ng/mL POCT glucose Collection Time: 01/03/18 8:53 PM Result Value Ref Range Glucose, POC, bld 154 (H) 71 - 98 mg/dL POCT glucose Collection Time: 01/04/18 2:15 AM Result Value Ref Range Glucose, POC, bld 96 71 - 98 mg/dL Basic metabolic panel Collection Time: 01/04/18 5:36 AM Result Value Ref Range Sodium 136 135 - 145 mmol/L Potassium, pl 3.2 (L) 3.3 - 4.9 mmol/L Chloride 100 97 - 110 mmol/L CO2 23 22 - 32 mmol/L Anion Gap 13 2 - 15 mmol/L BUN 7 (L) 8 - 25 mg/dL Creatinine 0.33 (L) 0.60 - 1.10 mg/dL Glucose 67 (L) 70 - 199 mg/dL Calcium 8.7 8.5 - 10.3 mg/dL Magnesium Collection Time: 01/04/18 5:36 AM Result Value Ref Range Magnesium 1.7 1.6 - 2.4 mg/dL Phosphorus Collection Time: 01/04/18 5:36 AM Result Value Ref Range Phosphorus, pl 4.1 2.3 - 4.5 mg/dL CBC with auto differential Collection Time: 01/04/18 5:36 AM Result Value Ref Range WBC 7.8 3.8 - 9.9 K/cumm Hgb 12.2 11.9 - 15.5 g/dL Hct 35.6 35.6 - 45.5 % Plt 441 (H) 150 - 400 K/cumm MPV 8.8 (L) 9.1 - 12.3 fL RBC 4.50 3.90 - 5.20 M/cumm MCV 79.1 (L) 81.3 - 96.4 fL MCH 27.1 27.1 - 33.3 pg MCHC 34.3 32.3 - 35.7 g/dL RDW CV 14.6 11.1 - 14.9 % RDW SD 41.4 35.7 - 48.1 fL NRBC Abs 0.00 0.00 - 0.01 K/cumm Differential, auto Collection Time: 01/04/18 5:36 AM Result Value Ref Range Neutrophil absolute 2.7 1.7 - 6.5 K/cumm Immature granulocyte absolute 0.0 0.0 - 0.1 K/cumm Lymphocytes absolute 4.0 (H) 0.8 - 3.3 K/cumm Monocyte absolute 1.1 (H) 0.2 - 0.8 K/cumm Eosinophils absolute 0.0 0.0 - 0.5 K/cumm Basophils, abs 0.0 0.0 - 0.1 K/cumm Neutrophils 34.0 % Immature granulocytes 0.5 % Lymphocytes 51.2 % Monocytes 13.8 % Eosinophils 0.1 % Basophils 0.4 % eGFR Collection Time: 01/04/18 5:36 AM Result Value Ref Range GFR >60 mL/min/1.73 m2 POCT glucose Collection Time: 01/04/18 8:04 AM Result Value Ref Range Glucose, POC, bld 60 (L) 71 - 98 mg/dL POCT glucose Collection Time: 01/04/18 8:50 AM Result Value Ref Range Glucose, POC, bld 129 (H) 71 - 98 mg/dL POCT glucose Collection Time: 01/04/18 11:51 AM Result Value Ref Range Glucose, POC, bld 218 (H) 71 - 98 mg/dL Discharge Disposition: Discharge to a critical access hospital Full Code Discharge Instructions: Activity Instructions Discharge activity: Resume normal activity Diet Instructions Adult Discharge Diet Diet Type: Other (specify) Explanatory Comment: diabetic diet Other Instructions Special Instructions Discharge Medications: Your medication list START taking these medications metoclopramide 5 mg tablet Commonly known as: REGLAN Take 1 tablet (5 mg total) by mouth every 8 (eight) hours as needed (nausea). CHANGE how you take these medications insulin glargine 100 unit/mL (3 mL) insulin pen Commonly known as: LANTUS,BASAGLAR Inject 10 Units under the skin daily. What changed: how much to take CONTINUE taking these medications insulin lispro 100 unit/mL injection Commonly known as: HumaLOG Outpatient Follow-Up: Follow-up with primary care physician in 1 week Patient was advised to follow up with dam attendant in 1 week Time Spent on Discharge: 35 mins documented in this encounter Discharge Instructions * Discharge Instr - Other Orders* Essence Garcia RN - 01/04/2018 2:32 PM CDT If you have any questions or concerns please call us back at [phone]. We would be more than happy to help answer any questions you have. * Attachments The following attachments cannot be sent through Care Everywhere. * Metoclopramide (By mouth) (Italian) documented in this encounter Medications at Time of Discharge insulin glargine (LANTUS,BASAGLAR) 100 unit/mL (3 mL) insulin penIndications:type 1 diabetes mellitus Inject 10 Units under the skin daily. 0 01/04/2018 9 insulin lispro (HumaLOG) 100 unit/mL injectionIndications :type 1 diabetes mellitus Inject 1 Units under the skin 3 (three) times a day before meals. Carb ratio 1 unit of humalog per 8 carbs with meals. 9 metoclopramide (REGLAN) 5 mg tabletIndications:na usea Take 1 tablet (5 mg total) by mouth every 8 (eight) hours as needed (nausea). 10 tablet 01/04/2018 9 ondansetron ODT (ZOFRAN-ODT) 4 mg disintegrating tablet Take 4 mg by mouth 3 (three) times a day as needed for vomiting. 07/22/2017 9 sertraline (ZOLOFT) 50 mg tablet Take 50 mg by mouth daily. 12/31/2017 9 documented as of this encounter Ordered Prescriptions Prescription Sig Dispense Quantity Refills Last Filled Start Date End Date metoclopramide (REGLAN) 5 mg tabletIndications: nausea Take 1 tablet (5 mg total) by mouth every 8 (eight) hours as needed (nausea). 10 tablet 01/04/2018 10/04/2018 insulin glargine (LANTUS,BASAGLAR) 100 unit/mL (3 mL) insulin penIndications:typ e 1 diabetes mellitus Inject 10 Units under the skin daily. 0 01/04/2018 10/04/2018 documented in this encounter Discharge Disposition Disposition Code Departure Means Destination Discharge to home or self care documented in this encounter Progress Notes * Pascual Espinal, [facility] - 01/03/2018 12:55 PM CDT An order to initiate electrolyte repletion by pharmacy has been received from Dr. Sloan. IV (or PO repletion for potassium or magnesium, when tolerating oral) will be ordered by the pharmacist when levels fall below the desired range as follows: If potassium level is greater [...] over 2 hours. If phosphorus level is 2.2 or less, and potassium and sodium are in normal range, give sodium phosphate 30 millimols IVPB. ?? If phosphorous level is 2.2 or less, and potassium replacement is also needed, give potassium phosphate 30 millimols IVPB. ?? If phosphorous level is 2.2 or less, and potassium is in normal range, and sodium is 145 or greater, give potassium phosphate 20 millimols IVPB. Monitoring Guidelines: TPN Patients: Renal panel daily x3 days, then every other day. ICU patients: Electrolyte levels (Potassium, magnesium, sodium and phosphorus)daily. All other patients: Electrolyte levels daily x 3 days. -If repletion is needed in the first 3 days, continue daily labs. -If repletion has not been needed, change labs to every 72 hours * Josette Sloan MD - 01/03/2018 12:44 PM CDT General Medicine Daily Progress SUBJECTIVE Chief complaint of nausea and vomiting Interval History: Hypoglycemic to 50 this morning. Patient initially refused treatment She has also been nauseous and has vomited. Has declined zofran also She did not eat breakfast but plans to eat later today OBJECTIVE Vitals: 24hr Min/Max: Temp Min: 36.6 ??C (97.9 ??F) Max: 36.9 ??C (98.4 ??F) Pulse Min: 70 Max: 122 BP Min: 96/50 Max: 170/99 Resp Min: 18 Max: 19 SpO2 Min: 98 % Max: 100 % Most Recent : Vitals: 01/03/18 0723 BP: 170/99 Pulse: 122 Resp: 19 Temp: 36.6 ??C (97.9 ??F) SpO2: 98% I/O last 2 completed shifts: In: 1922.5 [P.O.:240; I.V.:1682.5] Out: - No intake/output data recorded. Physical Exam: General: awake, alert and oriented to person, place, time Eyes: no scleral icterus Neck: supple Pharynx: No gross oral lesion Lungs clear to auscultation without wheezes or rales Heart: regular rate and rhythm, tachycardic Abd: +BS, Non Tender, Non distended, No gross hepatomegaly Lower Ext: No gross edema Neuro: No new gross deficits appreciated Musculoskeletal: no gross joint erythema, edema, tenderness Lab/Current Medication Review: Recent Results (from the past 24 hour(s)) Basic metabolic panel Collection Time: 01/02/18 12:49 PM Result Value Ref Range Sodium 137 135 - 145 mmol/L Potassium, pl 4.1 3.3 - 4.9 mmol/L Chloride 99 97 - 110 mmol/L CO2 20 (L) 22 - 32 mmol/L Anion Gap 18 (H) 2 - 15 mmol/L BUN 10 8 - 25 mg/dL Creatinine 0.35 (L) 0.60 - 1.10 mg/dL Glucose 165 70 - 199 mg/dL Calcium 8.8 8.5 - 10.3 mg/dL eGFR Collection Time: 01/02/18 12:49 PM Result Value Ref Range GFR >60 mL/min/1.73 m2 POCT glucose Collection Time: 01/02/18 4:35 PM Result Value Ref Range Glucose, POC, bld 206 (H) 71 - 98 mg/dL POCT glucose Collection Time: 01/02/18 9:24 PM Result Value Ref Range Glucose, POC, bld 166 (H) 71 - 98 mg/dL POCT glucose Collection Time: 01/03/18 2:36 AM Result Value Ref Range Glucose, POC, bld 63 (L) 71 - 98 mg/dL Basic metabolic panel Collection Time: 01/03/18 5:03 AM Result Value Ref Range Sodium 141 135 - 145 mmol/L Potassium, pl 3.6 3.3 - 4.9 mmol/L Chloride 103 97 - 110 mmol/L CO2 26 22 - 32 mmol/L Anion Gap 12 2 - 15 mmol/L BUN 5 (L) 8 - 25 mg/dL Creatinine 0.30 (L) 0.60 - 1.10 mg/dL Glucose 50 (Critical) 70 - 199 mg/dL Calcium 8.6 8.5 - 10.3 mg/dL eGFR Collection Time: 01/03/18 5:03 AM Result Value Ref Range GFR >60 mL/min/1.73 m2 POCT glucose Collection Time: 01/03/18 5:25 AM Result Value Ref Range Glucose, POC, bld 63 (L) 71 - 98 mg/dL POCT glucose Collection Time: 01/03/18 7:51 AM Result Value Ref Range Glucose, POC, bld 113 (H) 71 - 98 mg/dL POCT glucose Collection Time: 01/03/18 11:33 AM Result Value Ref Range Glucose, POC, bld 195 (H) 71 - 98 mg/dL Current Facility-Administered Medications Medication Dose Route Frequency Provider Last Rate Last Dose ??? dextrose (D10W) 10% bolus 250 mL 250 mL intravenous Q15 Min PRN Josette Sloan MD ??? dextrose (D10W) 10% bolus 250 mL 250 mL intravenous Q4H PRN Josette Sloan MD ??? dextrose 50% (concentrated solution) CONCENTRATED solution 25 g 25 g intravenous Q15 Min PRN Kim Espitia MD ??? dextrose 50% (concentrated solution) CONCENTRATED solution 25 g 25 g intravenous Q15 Min PRN Josette Sloan MD ??? dextrose gel in packet 15 g 15 g oral Q15 Min PRN Josette Sloan MD ??? docusate sodium (COLACE) capsule 100 mg 100 mg oral BID PRN Gio Sewell MD ??? enoxaparin (LOVENOX) syringe 40 mg 40 mg subcutaneous Daily-2100 Josette Sloan MD ??? famotidine (PEPCID) injection 20 mg 20 mg intravenous BID Gio Sewell MD 20 mg at ??? glucagon injection 1 mg 1 mg intramuscular Q30 Min PRN Josette Sloan MD ??? insulin glargine (LANTUS,BASAGLAR) pen injection 12 Units 12 Units subcutaneous Nightly Josette Sloan MD ??? insulin lispro (HumaLOG) pen injection 1-2 Units 1-2 Units subcutaneous Nightly Josette Sloan MD ??? insulin lispro (HumaLOG) pen injection 1-3 Units 1-3 Units subcutaneous TID with meals VeronicaO. Nathalia MD 1 Units at 01/03/18 1211 ??? insulin lispro (HumaLOG) pen injection 4 Units 4 Units subcutaneous TID with meals Josette Sloan MD 4 Units at 01/03/18 1212 ??? metoclopramide (REGLAN) injection 5 mg 5 mg intravenous Q8H BOB Kim Espitia MD 5 mg at 01/02/18 1325 ??? ondansetron (ZOFRAN) injection 4 mg 4 mg intravenous Q6H PRN Kim Espitia MD ??? sertraline (ZOLOFT) tablet 50 mg 50 mg oral Daily Josette Sloan MD 50 mg at 01/03/18 0818 ??? sodium chloride 0.9% bolus 1,000 mL 1,000 mL intravenous Once Gio Sewell MD Stopped at 01/02/18 0146 A/P: Principal Problem: Uncontrolled type 1 diabetes mellitus with hyperglycemia and hypoglycemia (CMS/HCC) Active Problems: Nausea and vomiting Dehydration Ketonuria Thrombocytosis (CMS/HCC) Depression disorder She was discharge from [facility] hospital on lantus 15 units bedtime and novolog 4 units with meals. Due to hypoglycemia, will decrease to 12 units. Encourage Po intake. Continue IV reglan. IV zofran also prn for nausea and vomiting. Gentle hydration NS at 75cc/hr due to poor po intake Mg and phos labs are pending Keep outpatient with GI as recommended for an EGD and workup of gastroparesis Continue sertraline 50mg daily Josette Sloan MD 01/03/2018 12:44 PM * Josette Sloan MD - 01/02/2018 2:44 PM CDT General Medicine Daily Progress SUBJECTIVE Chief complaint of nausea and vomiting Interval History: Denies recurrent emesis or abdominal pain. Last bowel movement was yesterday. Reports that she was discharged from [facility] on 12/30 due to DKA OBJECTIVE Vitals: 24hr Min/Max: Temp Min: 36.8 ??C (98.2 ??F) Max: 37.2 ??C (99 ??F) Pulse Min: 97 Max: 116 BP Min: 115/70 Max: 150/87 Resp Min: 18 Max: 20 SpO2 Min: 100 % Max: 100 % Most Recent : Vitals: 01/02/18 0743 BP: 115/70 Pulse: 115 Resp: 18 Temp: 37.2 ??C (99 ??F) SpO2: 100% I/O last 2 completed shifts: In: 2219 [P.O.:200; I.V.:2019] Out: - No intake/output data recorded. Physical Exam: General: awake, alert and oriented to person, place, time Eyes: no scleral icterus Neck: supple Pharynx: No gross oral lesion Lungs clear to auscultation without wheezes or rales Heart: regular rate and rhythm. Tachycardia is no longer present Abd: +BS, Non Tender, Non distended, No gross hepatomegaly Lower Ext: No gross edema Neuro: No new gross deficits appreciated Musculoskeletal: no gross joint erythema, edema, tenderness Lab/Current Medication Review: Recent Results (from the past 24 hour(s)) POCT glucose Collection Time: 01/01/18 8:40 PM Result Value Ref Range Glucose, POC, bld 200 (H) 71 - 98 mg/dL Blood gas, arterial Collection Time: 01/01/18 8:48 PM Result Value Ref Range pH, Arterial 7.51 (H) 7.35 - 7.45 PCO2, Arterial 25 (L) 35 - 45 mmHg PO2, Arterial 115 (H) 83 - 108 mmHg HCO3 Art (Calculated) 19 (L) 20 - 30 mmol/L BE, art -2 mmol/L O2 Sat Art (Measured) 99 (H) 90 - 95 % CBC with auto differential Collection Time: 01/01/18 8:57 PM Result Value Ref Range WBC 6.4 3.8 - 9.9 K/cumm Hgb 13.4 11.9 - 15.5 g/dL Hct 41.5 35.6 - 45.5 % Plt 464 (H) 150 - 400 K/cumm MPV 8.8 (L) 9.1 - 12.3 fL RBC 4.90 3.90 - 5.20 M/cumm MCV 84.7 81.3 - 96.4 fL MCH 27.3 27.1 - 33.3 pg MCHC 32.3 32.3 - 35.7 g/dL RDW CV 14.3 11.1 - 14.9 % RDW SD 43.6 35.7 - 48.1 fL NRBC Abs 0.00 0.00 - 0.01 K/cumm Comprehensive metabolic panel Collection Time: 01/01/18 8:57 PM Result Value Ref Range Sodium 136 135 - 145 mmol/L Potassium, pl 4.2 3.3 - 4.9 mmol/L Chloride 95 (L) 97 - 110 mmol/L CO2 20 (L) 22 - 32 mmol/L Anion Gap 21 (H) 2 - 15 mmol/L BUN 9 8 - 25 mg/dL Creatinine 0.31 (L) 0.60 - 1.10 mg/dL Glucose 216 (H) 70 - 199 mg/dL Calcium 9.4 8.5 - 10.3 mg/dL Bilirubin, total 0.5 0.1 - 1.2 mg/dL Protein, pl 7.2 6.5 - 8.5 g/dL Albumin 4.5 3.5 - 5.0 g/dL Alk phos 73 40 - 130 Units/L ALT 9 7 - 45 Units/L AST 16 10 - 45 Units/L Differential, auto Collection Time: 01/01/18 8:57 PM Result Value Ref Range Neutrophil absolute 5.3 1.7 - 6.5 K/cumm Immature granulocyte absolute 0.0 0.0 - 0.1 K/cumm Lymphocytes absolute 0.8 0.8 - 3.3 K/cumm Monocyte absolute 0.3 0.2 - 0.8 K/cumm Eosinophils absolute 0.0 0.0 - 0.5 K/cumm Basophils, abs 0.0 0.0 - 0.1 K/cumm Neutrophils 82.1 % Immature granulocytes 0.5 % Lymphocytes 12.4 % Monocytes 4.5 % Eosinophils 0.0 % Basophils 0.5 % eGFR Collection Time: 01/01/18 8:57 PM Result Value Ref Range GFR >60 mL/min/1.73 m2 Urinalysis reflex to microscopic and culture Urine, clean voided Collection Time: 01/01/18 9:58 PM Result Value Ref Range Color, ur Yellow Yellow Clarity, ur Clear Clear Specific gravity, ur 1.020 1.010 - 1.025 pH, urine 7.5 Protein, ur ql Negative Negative Glucose, ur ql 3+ (A) Negative Ketones, ur 3+ (A) Negative Bilirubin, ur Negative Negative Blood, ur Negative Negative Urobilinogen, ur 0.2 mg/dL Nitrite, ur Negative Negative Leukocyte esterase, ur Negative Negative hCG, urine, qualitative Collection Time: 01/01/18 9:58 PM Result Value Ref Range HCG, ur Negative Negative POCT glucose Collection Time: 01/02/18 2:15 AM Result Value Ref Range Glucose, POC, bld 305 (Critical) 71 - 98 mg/dL Basic metabolic panel Collection Time: 01/02/18 3:43 AM Result Value Ref Range Sodium 136 135 - 145 mmol/L Potassium, pl 4.0 3.3 - 4.9 mmol/L Chloride 99 97 - 110 mmol/L CO2 17 (L) 22 - 32 mmol/L Anion Gap 20 (H) 2 - 15 mmol/L BUN 9 8 - 25 mg/dL Creatinine 0.34 (L) 0.60 - 1.10 mg/dL Glucose 233 (H) 70 - 199 mg/dL Calcium 8.4 (L) 8.5 - 10.3 mg/dL Magnesium Collection Time: 01/02/18 3:43 AM Result Value Ref Range Magnesium 1.7 1.6 - 2.4 mg/dL Phosphorus Collection Time: 01/02/18 3:43 AM Result Value Ref Range Phosphorus, pl 2.9 2.3 - 4.5 mg/dL eGFR Collection Time: 01/02/18 3:43 AM Result Value Ref Range GFR >60 mL/min/1.73 m2 POCT glucose Collection Time: 01/02/18 3:46 AM Result Value Ref Range Glucose, POC, bld 192 (H) 71 - 98 mg/dL Blood gas, arterial Collection Time: 01/02/18 5:20 AM Result Value Ref Range pH, Arterial 7.40 7.35 - 7.45 PCO2, Arterial 36 35 - 45 mmHg PO2, Arterial 99 83 - 108 mmHg HCO3 Art (Calculated) 22 20 - 30 mmol/L BE, art -2 mmol/L O2 Sat Art (Measured) 98 (H) 90 - 95 % POCT glucose Collection Time: 01/02/18 7:46 AM Result Value Ref Range Glucose, POC, bld 104 (H) 71 - 98 mg/dL POCT glucose Collection Time: 01/02/18 10:56 AM Result Value Ref Range Glucose, POC, bld 143 (H) 71 - 98 mg/dL Basic metabolic panel Collection Time: 01/02/18 12:49 PM Result Value Ref Range Sodium 137 135 - 145 mmol/L Potassium, pl 4.1 3.3 - 4.9 mmol/L Chloride 99 97 - 110 mmol/L CO2 20 (L) 22 - 32 mmol/L Anion Gap 18 (H) 2 - 15 mmol/L BUN 10 8 - 25 mg/dL Creatinine 0.35 (L) 0.60 - 1.10 mg/dL Glucose 165 70 - 199 mg/dL Calcium 8.8 8.5 - 10.3 mg/dL eGFR Collection Time: 01/02/18 12:49 PM Result Value Ref Range GFR >60 mL/min/1.73 m2 Current Facility-Administered Medications Medication Dose Route Frequency Provider Last Rate Last Dose ??? dextrose (D10W) 10% bolus 250 mL 250 mL intravenous Q15 Min PRN Kim Espitia MD ??? dextrose (D10W) 10% bolus 250 mL 250 mL intravenous Q4H PRN Kim Espitia MD ??? dextrose (D10W) 10% bolus 250 mL 250 mL intravenous Q15 Min PRN Josette Sloan MD ??? dextrose (D10W) 10% bolus 250 mL 250 mL intravenous Q4H PRN Josette Sloan MD ??? dextrose 50% (concentrated solution) CONCENTRATED solution 25 g 25 g intravenous Q15 Min PRN Kim Espitia MD ??? dextrose 50% (concentrated solution) CONCENTRATED solution 25 g 25 g intravenous Q15 Min PRN Josette Sloan MD ??? dextrose gel in packet 15 g 15 g oral Q15 Min PRN Kim Espitia MD ??? dextrose gel in packet 15 g 15 g oral Q15 Min PRN Josette Sloan MD ??? docusate sodium (COLACE) capsule 100 mg 100 mg oral BID PRN Gio Sewell MD ??? famotidine (PEPCID) injection 20 mg 20 mg intravenous BID Gio Sewell MD 20 mg at [id number] ??? glucagon injection 1 mg 1 mg intramuscular Q30 Min PRN Kim Espitia MD ??? glucagon injection 1 mg 1 mg intramuscular Q30 Min PRN Josette Sloan MD ??? insulin glargine (LANTUS,BASAGLAR) pen injection 15 Units 15 Units subcutaneous Nightly Josette Sloan MD ??? insulin lispro (HumaLOG) pen injection 1-2 Units 1-2 Units subcutaneous Nightly Josette Sloan MD ??? insulin lispro (HumaLOG) pen injection 1-3 Units 1-3 Units subcutaneous TID with meals VeronicaO. Nathalia MD ??? insulin lispro (HumaLOG) pen injection 4 Units 4 Units subcutaneous TID with meals Josette Sloan MD ??? Lactated Ringer's (LR) infusion 75 mL/hr intravenous Continuous Josette Sloan MD 75 mL/hr at 01/02/18 1340 75 mL/hr at 01/02/18 1340 ??? metoclopramide (REGLAN) injection 5 mg 5 mg intravenous Q8H BOB Kim Espitia MD 5 mg at 01/02/18 1325 ??? ondansetron (ZOFRAN) injection 4 mg 4 mg intravenous Q6H PRN Kim Espitia MD ??? sertraline (ZOLOFT) tablet 50 mg 50 mg oral Daily Josette Sloan MD ??? sodium chloride 0.9% bolus 1,000 mL 1,000 mL intravenous Once Gio Sewell MD Stopped at 01/02/18 0146 A/P: Principal Problem: Uncontrolled type 1 diabetes mellitus with hyperglycemia (CMS/HCC) Active Problems: Nausea and vomiting Dehydration Ketonuria Thrombocytosis (CMS/HCC) Depression disorder Reviewed discharge summary from [facility]. She was discharge on lantus 15 units and novolog4 units with meals. Repeat BMP reviewed. Resume diabetic diet. Continue IV reglan Keep outpatient with GI as recommended for an EGD and workup of gastroparesis Resume sertraline 50mg daily Anticipate discharge home tomorrow Josette Sloan MD 01/02/2018 2:44 PM documented in this encounter H&P Notes * Gio Sewell MD - 01/02/2018 1:34 AM CDT History and Physical Date of Service: 01/02/2018 Primary Care Physician: Jolanta Freeman MD [phone] SUBJECTIVE: Nausea and vomiting HPI: 22-year-old female with history of type 1 diabetes presenting to the emergency department with complains of persistent nausea and vomiting that started about 6 hr prior to arrival. Per report patientwas admitted earlier this week to the [facility] with DKA. She states that she is compliant withher medications she is taking Lantus 15 units and Humalog with sliding scale. She states that her bl ood sugars earlier today were around 200. She does have a dam attendant in [facility], had been followed up with them on a regular basis. Reportedly last hemoglobin A1c was 9.1. Patient denies any sore throat, ear ache, some toothache, cough, chest pain, shortness of breath, complains of diffuse abdominal pain because of persistent vomiting. Patient is a nonsmoker and nondrinker, denies any illicit drug use. She denies being Past Medical History: Diagnosis Date ??? Depression ??? Diabetes mellitus (CMS/HCC) ??? HX OTHER MEDICAL 2011 Diabetes mellitus, type 1 Past Surgical History: Procedure Laterality Date ??? ABDOMINAL SURGERY ??? SECTION, CLASSIC 2017 ??? TONSILLECTOMY Bilateral 2002 Prescriptions Prior to Admission Medication Sig Dispense Refill Last Dose ??? insulin glargine (LANTUS,BASAGLAR) 100 unit/mL (3 mL) insulin pen Inject 15 Units under the skin daily. ??? insulin lispro (HumaLOG) 100 unit/mL injection Inject 1 Units under the skin 3 (three) times a day before meals. Carb ratio 1 unit of humalog per 8 carbs with meals. No Known Allergies Social History Substance Use Topics ??? Smoking status: Never Smoker ??? Smokeless tobacco: Never Used ??? Alcohol use No History reviewed. No pertinent family history. Review of Systems 1. Constitutional Denies: weight loss, weight gain, fever, chills, night sweats, complains of fatigue 2. Eyes Denies: change in vision, double vision, eye pain, eye discharge, icterus 3. ENT Denies: change in hearing, ear pain, ear discharge, nose bleed, nasal congestion, sore throat 4. Respiratory Denies: SOB, wheezing, cough, sputum, hemoptysis 5. CV Denies: chest pain, palpitations, syncope, edema, dyspnea 6. GI Complains of diffuse abdominal pain, decreased appetite, nausea, vomiting, denies change in bowel habitus, diarrhea, , constipation, melena, BRBPR 7. Denies: dysuria, frequency, hematuria, nocturia, urgency 8. Metabolic Denies: cold intolerance, heat intolerance, polyphagia, polydipsia 9. Neurologic Denies: headache, dizziness, seizure, change in mental status, focal weakness, focal numbness 10. Musculoskeletal Denies: myalgia, joint pain, joint redness, joint swelling, extremity pain 11. Hematologic Denies: bleeding, bruising, hematoma, lymphadenopathy, icterus OBJECTIVE: Vitals: Arrival Vitals Temp 01/01/182038 36.9 ??C (98.5 ??F) Pulse 01/01/182038 97 Resp 01/02/18 0023 20 BP 01/01/182038 146/84 SpO2 01/02/18 002 100 % Temp src 01/01/182038 Oral Heart Rate Source -- Patient Position -- BP Location 01/02/18 0023 Left arm FiO2 (%) -- Most Recent : Vitals: 01/01/18203801/02/1822 BP: 146/84 150/87 BP Location: Left arm Pulse: 97 116 Resp: 20 Temp: 36.9 ??C (98.5 ??F) 36.8 ??C (98.2 ??F) TempSrc: Oral Temporal SpO2: 100% Weight: 47.6 kg (105 lb) 51.6 kg (113 lb 12.1 oz) Height: 180.3 cm (5' 11 ) 154.9 cm (5' 1 ) Physical Exam General: Awake, alert, oriented x4, sick looking Eyes: EOMI, ZORAIDA, sclare non icteric Neck: supple, trachea midline, thyroid not enlarged, no gross carotid bruits appreciated Pharynx: No gross oral lesion, tongue midline, mucosa moist, lips are dry Lungs CTA Heart: Tachycardic RRS1S2 Abd: +BS, Non Tender, Non distended, [...] past 24 hour(s)) POCT glucose Collection Time: 01/01/18 8:40 PM Result Value Ref Range Glucose, POC, bld 200 (H) 71 - 98 mg/dL Blood gas, arterial Collection Time: 01/01/18 8:48 PM Result Value Ref Range pH, Arterial 7.51 (H) 7.35 - 7.45 PCO2, Arterial 25 (L) 35 - 45 mmHg PO2, Arterial 115 (H) 83 - 108 mmHg HCO3 Art (Calculated) 19 (L) 20 - 30 mmol/L BE, art -2 mmol/L O2 Sat Art (Measured) 99 (H) 90 - 95 % CBC with auto differential Collection Time: 01/01/18 8:57 PM Result Value Ref Range WBC 6.4 3.8 - 9.9 K/cumm Hgb 13.4 11.9 - 15.5 g/dL Hct 41.5 35.6 - 45.5 % Plt 464 (H) 150 - 400 K/cumm MPV 8.8 (L) 9.1 - 12.3 fL RBC 4.90 3.90 - 5.20 M/cumm MCV 84.7 81.3 - 96.4 fL MCH 27.3 27.1 - 33.3 pg MCHC 32.3 32.3 - 35.7 g/dL RDW CV 14.3 11.1 - 14.9 % RDW SD 43.6 35.7 - 48.1 fL NRBC Abs 0.00 0.00 - 0.01 K/cumm Comprehensive metabolic panel Collection Time: 01/01/18 8:57 PM Result Value Ref Range Sodium 136 135 - 145 mmol/L Potassium, pl 4.2 3.3 - 4.9 mmol/L Chloride 95 (L) 97 - 110 mmol/L CO2 20 (L) 22 - 32 mmol/L Anion Gap 21 (H) 2 - 15 mmol/L BUN 9 8 - 25 mg/dL Creatinine 0.31 (L) 0.60 - 1.10 mg/dL Glucose 216 (H) 70 - 199 mg/dL Calcium 9.4 8.5 - 10.3 mg/dL Bilirubin, total 0.5 0.1 - 1.2 mg/dL Protein, pl 7.2 6.5 - 8.5 g/dL Albumin 4.5 3.5 - 5.0 g/dL Alk phos 73 40 - 130 Units/L ALT 9 7 - 45 Units/L AST 16 10 - 45 Units/L Differential, auto Collection Time: 01/01/18 8:57 PM Result Value Ref Range Neutrophil absolute 5.3 1.7 - 6.5 K/cumm Immature granulocyte absolute 0.0 0.0 - 0.1 K/cumm Lymphocytes absolute 0.8 0.8 - 3.3 K/cumm Monocyte absolute 0.3 0.2 - 0.8 K/cumm Eosinophils absolute 0.0 0.0 - 0.5 K/cumm Basophils, abs 0.0 0.0 - 0.1 K/cumm Neutrophils 82.1 % Immature granulocytes 0.5 % Lymphocytes 12.4 % Monocytes 4.5 % Eosinophils 0.0 % Basophils 0.5 % eGFR Collection Time: 01/01/18 8:57 PM Result Value Ref Range GFR >60 mL/min/1.73 m2 Urinalysis reflex to microscopic and culture Urine, clean voided Collection Time: 01/01/18 9:58 PM Result Value Ref Range Color, ur Yellow Yellow Clarity, ur Clear Clear Specific gravity, ur 1.020 1.010 - 1.025 pH, urine 7.5 Protein, ur ql Negative Negative Glucose, ur ql 3+ (A) Negative Ketones, ur 3+ (A) Negative Bilirubin, ur Negative Negative Blood, ur Negative Negative Urobilinogen, ur 0.2 mg/dL Nitrite, ur Negative Negative Leukocyte esterase, ur Negative Negative hCG, urine, qualitative Collection Time: 01/01/18 9:58 PM Result Value Ref Range HCG, ur Negative Negative Transthoracic Echo Complete W Doppler/cf Result Date: 12/09/2017 Narrative: [address] [place] [address] Echocardiogram Report Patient Name: KARINA MENJIVAR : 1995 Study Date: 12/09/201710:38:14 Gender: F 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 Indications: Tachycardia. Measurements: 2D/M Mode Doppler Measurement Value Normal Range Measurement Value Normal Range EF Teich MM 75.4 [ 55.0 - 70.0 ] percent MARIA DEL ROSARIO Vmax 2.41 [ 2.00 - 4.00] cm2 LVIDd MM 3.95 [ 3.90 - 5.30 ] cm AV Mean PG 5 [ 2 - 4 ] mmHg LVIDs MM 2.23 [ 2.30 - 3.90 ] cm AV Peak Denys 1.42 [ 1.00 - 1.70 ] m/s LVPWd MM 0.62 [ 0.60 - 1.00 ] cm AV VTI 26.04 cm IVSd MM 0.76[ 0.60 - 0.90 ] cm LVOT Diam 1.79 [ 1.70 - 2.10 ] cm LA Dimension MM 2.28 [ 2.70 - 3.80 ] cm LVOT Peak Denys 1.14 [ 0.70 - 1.10 ] m/s AoR Diam MM 2.74 [ 2.60 - 3.70 ] cm LVOT VTI 20.04 [ 20.00 - 30.00] cm ACS MM 1.27 cm MV E Peak Denys 0.82 [ 0.60 - 1.30 ] m/s MV A Peak Denys 0.92 [ 1.00 - 1.20 ] m/sMV PHT 31 [ 20 - 100 ] msec MV Decel Time 108 [ 104 - 258 ] msec PV Peak Denys 0.86 [ 0.40 - 0.80 ] m/s TR Peak Denys 3.16 [ 1.00 - 2.80 ] m/s TR Peak PG 40 mmHg Findings: Atrial Septum: Normal atrial septum. Left Ventricle: Normal left ventricular systolic function with no focal wall motion abnormalities. Normal left ventricular size. Normal left ventricular wall thickness. Normal left ventriculardiastolic function. Ejection fraction is visually estimated at 69 %. Left Atrium: The left atrium is normal in size. Right Ventricle: Normal right ventricular size. Normal right ventricular systolic function. Right Atrium: The right atrium is normal in size. Aortic Valve: Normal structure of the aortic valve. Mitral Valve: Normal structure of the mitral valve. Pulmonic Valve: Normal structure of the pulmonic valve. Tricuspid Valve: Normal structure of the tricuspid valve. Normal right ventricular systolic pressure. Pericardium: Normal pericardium with no significant pericardial effusion. Aorta: Normal aortic root. Sinus of Valsalva is normal. Aortic arch is normal. Descending aorta is normal. IVC: Normal size and normal respiratory collapse consistent with normal right atrial pressure (<5 mmHg). Pulmonary Artery: Normal pulmonary artery size. Conclusions: Normal left ventricular systolic function with no focal wall motion abnormalities. Normal left ventricular size. Normal left ventricular wall thickness. Normal left ventricular diastolic function. Ejection fraction is visually estimated at 69 %. No significant valvular disease. Electronically Signed By: Dr Dung Randall 2017-12-09 16:49:04 CDT CC: CC: ASSESSMENT/PLAN: * Uncontrolled type 1 diabetes mellitus with hyperglycemia (CMS/HCC) Assessment & Plan Blood sugars are elevated Reportedly patient had been compliant with her medications. ABGs were consistent with alkalosis, less likely to be DKA state. Will admit per hyperglycemia protocol D/c IV fluids with dextrose Patient is dehydrated-will bolus normal saline Continue with Lantus and Humalog Will start on medium dose insulin sliding scale. Thrombocytosis (CMS/HCC) Assessment & Plan Slightly elevated platelet counts. Possibly acute reactant reaction due to possibly gastroenteritisversus DKA Will repeat CBC in a.m. Ketonuria Assessment & Plan Ketonuria present. Patient with persistent nausea and vomiting possibly starvation ketones versus DKA related. Will confirm the test with beta hydroxy butyrate Continue with IV fluids and insulin as stated above Strict I&Os Metabolic alkalosis Assessment & Plan ABGs are consistent with metabolic alkalosis, most likely due to persistent nausea and vomiting. The Replete IV fluids Check for electrolytes, replete as needed. Dehydration Assessment & Plan Urine is not concentrated, however patient clinically looks dehydrated she did with dry lips. Bolus with normal saline, and follow with LR Strict I&Os Monitor kidney function with daily BMP Repeat ABGs at 5:00 a.m. Will check for beta hydroxybutyrate Nausea and vomiting Assessment & Plan Nausea vomiting. Patient presents with ketonuria, however [...] Zofran as needed for nausea and vomiting. Principal Problem: Uncontrolled type 1 diabetes mellitus with hyperglycemia (CMS/HCC) Active Problems: Nausea and vomiting Dehydration Metabolic alkalosis Ketonuria Thrombocytosis (CMS/HCC) Full Code ESTIMATED LENGTH OF STAY: Less than 2 midnights Gio Sewell MD 01/02/2018 1:34 AM documented in this encounter Nursing Notes * Kim Daley RN - 01/03/2018 6:45 AM CDT Patient's blood sugar is still 63. She refused any treatment, but stated that she might drink someapple juice later . Patient educated about hypoglycemia. Apple juice left on her bedside tray. documented in this encounter ED Notes * Kim Espitia MD - 01/01/2018 8:46 PM CDT HPI Chief Complaint Patient presents with ??? Vomiting nausea 8:28 PM 01/01/2018 Pt is a 22 y/o female non-smoker with h/o diabetes type I, presenting to the ED c/o vomiting a lot that started 6 hours ago and feels like her previous DKA episode. She mentions her blood glucose has been 216 today. Pt denies fever, pain, headache, SOB, chest pain, dysuria, frequency, urgency, ordiarrhea. Per mother, the pt was discharged on 12/30 from [facility] diagnosed with DKA. There are no other complaints at this time. Per Chart Review: Pt presented to [facility] on 12/25 for nausea, vomiting, and abdominal pain. She was found to be in DKA with an AG of 30, elevated B-OH-B and hyperglycemia. She was hydrated and started on an insulin gtt. She continues to have some emesis. Pt was discharged homeon 12/30 with regimen of Lantus 12 units daily and Humalog (I: C ratio of 1:8 and CF of 1 for 50 more than 150). Patient to follow up with her primary care doctor. Also noted: she was seen by psychiatrist- patient has depression and was started on Sertraline. Pt has had 5 hospitalizations for DKA in 2018. Patient History Patient Active Problem List Diagnosis Date Noted ??? Nausea and vomiting 01/02/2018 ??? Dehydration 01/02/2018 ??? Metabolic alkalosis 01/02/2018 ??? Uncontrolled type 1 diabetes mellitus with hyperglycemia (CMS/HCC) 01/02/2018 ??? Ketonuria 01/02/2018 ??? Thrombocytosis (CMS/HCC) 01/02/2018 ??? Diabetic ketoacidosis without coma associated with type 1 diabetes mellitus (CMS/HCC) ??? Acute gastroenteritis ??? Sinus tachycardia ??? Normocytic anemia Past Medical History: Diagnosis Date ??? Depression ??? Diabetes mellitus (CMS/HCC) ??? HX OTHER MEDICAL 2011 Diabetes mellitus, type 1 Past Surgical History: Procedure Laterality Date ??? ABDOMINAL SURGERY ??? SECTION, CLASSIC 2017 ??? TONSILLECTOMY Bilateral 2003 History reviewed. No pertinent family history. Social History Substance Use Topics ??? Smoking status: Never Smoker ??? Smokeless tobacco: Never Used ??? Alcohol use No Social History Social History Narrative ??? No narrative on file Review of Systems Review of [...] Triage Vitals Temp Pulse Resp BP SpO2 01/01/18203801/01/189 01/02/18 0023 01/01/18203801/02/18 0023 36.9 ??C (98.5 ??F) 97 20 146/84 100 % Temp src Heart Rate Source Patient Position BP Location FiO2 (%) 01/01/18203801/02/18 0743 01/02/18 0743 01/02/18 0023 -- Oral Monitor Lying Left arm Physical Exam Constitutional: She appears well-developed and well-nourished. No distress. Pt is lying supine on stretcher. Answers questions but is quiet and appears weak. HENT: Head: Normocephalic and atraumatic. Mucous membranes are dry. Eyes: Conjunctivae are normal. Neck: Neck supple. Cardiovascular: Normal rate and regular rhythm. No murmur heard. Pulmonary/Chest: Effort normal and breath sounds normal. No respiratory distress. Abdominal: Soft. There is no tenderness. Musculoskeletal: She exhibits no edema. Neurological: She is alert. Skin: Skin is warm and dry. There is pallor. Psychiatric: She has a normal mood and affect. Nursing note and vitals reviewed. MDM MDM Number of Diagnoses or Management Options Amount and/or Complexity of Data Reviewed Clinical lab tests: ordered and reviewed Vitals: 01/03/18 2330 BP: 117/70 Pulse: 96 Resp: 20 Temp: 36.8 ??C (98.3 ??F) SpO2: 100% Labs Reviewed URINALYSIS AND REFLEX TO MICROSCOPIC AND CULTURE - Abnormal Result Value Color, ur Yellow Clarity, ur Clear Specific gravity, ur 1.020 pH, urine 7.5 Protein, ur ql Negative Glucose, ur ql [...] tendency for uric acid stone formation. Source: [email or web address].Last revised 05-13-2017 CBC WITH AUTO DIFFERENTIAL - Abnormal WBC 6.4 Hgb 13.4 Hct 41.5 Plt 464 (*) MPV 8.8 (*) RBC 4.90 MCV 84.7 MCH 27.3 MCHC 32.3 RDW CV 14.3 RDW SD 43.6 NRBC Abs 0.00 Narrative: COMPREHENSIVE METABOLIC PANEL - Abnormal Sodium 136 Potassium, pl 4.2 Chloride 95 (*) CO2 20 (*) Anion Gap 21 (*) BUN 9 Creatinine 0.31 (*) Glucose 216 (*) Calcium 9.4 Bilirubin, total 0.5 Protein, pl 7.2 Albumin 4.5 Alk phos 73 ALT 9 AST 16 Narrative: BLOOD GAS, ARTERIAL - Abnormal pH, Arterial 7.51 (*) PCO2, Arterial 25 (*) PO2, Arterial 115 (*) HCO3 Art (Calculated) 19 (*) BE, art -2 O2 Sat Art (Measured) 99 (*) Narrative: BASIC METABOLIC PANEL - Abnormal Sodium 136 Potassium, pl 4.0 Chloride 99 CO2 17 (*) Anion Gap 20 (*) BUN 9 Creatinine 0.34 (*) Glucose 233 (*) Calcium 8.4 (*) Narrative: BLOOD GAS, ARTERIAL - Abnormal pH, Arterial 7.40 PCO2, Arterial 36 PO2, Arterial 99 HCO3 Art (Calculated) 22 BE, art -2 O2 Sat Art (Measured) 98 (*) Narrative: BETA-HYDROXYBUTYRATE - Abnormal Beta-Hydroxybutyrate 4.00 (*) Narrative: BASIC METABOLIC PANEL - Abnormal Sodium 137 Potassium, pl 4.1 Chloride 99 CO2 20 (*) Anion Gap 18 (*) BUN 10 Creatinine 0.35 (*) Glucose 165 Calcium 8.8 Narrative: BASIC METABOLIC PANEL - Abnormal Sodium 141 Potassium, pl 3.6 Chloride 103 CO2 26 Anion Gap 12 BUN 5 (*) Creatinine 0.30 (*) Glucose 50 (*) Calcium 8.6 Narrative: POCT GLUCOSE DEVICE - Abnormal Glucose, POC, bld 200 (*) Narrative: POCT GLUCOSE DEVICE - Abnormal Glucose, POC, bld 305 (*) Narrative: POCT GLUCOSE DEVICE - Abnormal Glucose, POC, bld 192 (*) Narrative: POCT GLUCOSE DEVICE - Abnormal Glucose, POC, bld 104 (*) Narrative: POCT GLUCOSE DEVICE - Abnormal Glucose, POC, bld 143 (*) Narrative: POCT GLUCOSE DEVICE - Abnormal Glucose, POC, bld 206 (*) Narrative: POCT GLUCOSE DEVICE - Abnormal Glucose, POC, bld 166 (*) Narrative: POCT GLUCOSE DEVICE - Abnormal Glucose, POC, bld 63 (*) Narrative: POCT GLUCOSE DEVICE - Abnormal Glucose, POC, bld 63 (*) Narrative: POCT GLUCOSE DEVICE - Abnormal Glucose, POC, bld 113 (*) Narrative: POCT GLUCOSE DEVICE - Abnormal Glucose, POC, bld 195 (*) Narrative: POCT GLUCOSE DEVICE - Abnormal Glucose, POC, bld 113 (*) Narrative: POCT GLUCOSE DEVICE - Abnormal Glucose, POC, bld 154 (*) Narrative: HCG, URINE, QUALITATIVE HCG, ur Negative Narrative: DIFFERENTIAL AUTO Neutrophil absolute 5.3 Immature granulocyte absolute 0.0 Lymphocytes absolute 0.8 Monocyte absolute 0.3 Eosinophils absolute 0.0 Basophils, abs 0.0 Neutrophils 82.1 Immature granulocytes 0.5 Lymphocytes 12.4 Monocytes 4.5 Eosinophils 0.0 Basophils 0.5 Narrative: EGFR GFR >60 Narrative: MAGNESIUM Magnesium 1.7 Narrative: PHOSPHORUS Phosphorus, pl 2.9 Narrative: EGFR GFR >60 Narrative: EGFR GFR >60 Narrative: EGFR GFR >60 Narrative: MAGNESIUM Magnesium 1.8 Narrative: PHOSPHORUS Phosphorus, pl 3.2 Narrative: TROPONIN T Troponin T <0.01 Narrative: BASIC METABOLIC PANEL MAGNESIUM PHOSPHORUS CBC WITH AUTO DIFFERENTIAL PHOSPHORUS MAGNESIUM POCT GLUCOSE DEVICE POCT GLUCOSE DEVICE POCT GLUCOSE DEVICE POCT GLUCOSE DEVICE POCT GLUCOSE DEVICE Glucose, POC, bld 96 Narrative: POCT GLUCOSE DEVICE POCT GLUCOSE DEVICE POCT GLUCOSE DEVICE POCT GLUCOSE DEVICE POCT GLUCOSE DEVICE POCT GLUCOSE DEVICE POCT GLUCOSE DEVICE No orders to display ED Course as of Jan 05 456 Time: 01/01 2051 Value: BP: 146/84 Comment: Pre-hypertension/Hypertension: The patient has been informed that they may have pre-hypertension or Hypertension based on a blood pressure reading in the Emergency Department. I recommend that the patient call the primary care provider listed on their discharge instructions or a physician of their choice this week to arrange follow up for further evaluation of possible pre- hypertension or Hypertension. By: Dung Ornelas Time: 01/01 2329 Comment: Discussed pt's case with Dr. Sewell, hospitalist, who advises the pt be admitted here forhydration although she does not fell the pt has a metabolic acidosis consistent with DKA. So at this point she will be admitted for hydration and sliding scale insulin. By: Dung Ornelas Nausea and vomiting, intractability of vomiting not specified, unspecified vomiting type Type 1 diabetes mellitus with hyperglycemia ([facility]) Sinus tachycardia This note is prepared by Dung Ornelas acting as a scribe for Kim Espitia MD. Signed by Sary Carlos, 8:51 PM 01/01/2018. I, Kim Espitia MD, have personally performed the services described in the documentation , reviewed the documentation, as recorded by the scribe in my presence, and it accurately and completely records my words and actions. Kim Espitia MD 01/04/18455 * Kanchan Montalvo, MARY - 01/01/2018 8:37 PM CDT Patient reports that she [facility] Patient was discharged a couple days ago. Patient reports blood sugars in the 200's today and vomiting began about 6 hours ago. documented in this encounter Miscellaneous Notes * Plan of Care - Srinath Kong RN - 01/04/2018 4:03 PM CDT Goals: Clinical Goals for the Shift: Pt will have decreased n/v, stable blood sugars Summary: No c/o any pain or discomfort. FS in am 60. Refused glucose gel, taken apple juice and atesome breakfast. Up and about, no nausea. * Plan of Care - June Coffey RN - 01/04/2018 4:26 AM CDT Fluid Volume: ??? Maintenance of adequate hydration will improve Progressing ??? Will show no signs and symptoms of electrolyte imbalance Progressing Health Behavior: ??? Understanding of discharge needs will improve Progressing Lack of Knowledge: ??? Verbalization of understanding the information provided will improve Progressing Nutritional: ??? Maintenance of adequate nutrition will improve Progressing Sensory: ??? Occurrences of nausea will decrease Progressing Goals: Clinical Goals for the Shift: Pt will have decreased n/v, stable blood sugars Summary: Pt is a&o up ad cleve. Pt with emesis x1 early this shift refused prn zofran stating it doesn't work. IVF infusing. Blood sugars stable. * Plan of Care - Yoli Scott RN - 01/03/2018 10:48 AM CDT Nutritional: ??? Maintenance of adequate nutrition will improve Not Progressing Sensory: ??? Occurrences of nausea will decrease Not Progressing Goals: Clinical Goals for the Shift: rest without injury. vs an dlabs stable. Blood sugars stable. Decreased nausea/ vomiting. Summary: Patient resting per bed. A/O x4. On room air. Independent in room. Complaints of nausea/ dry heaves, refused antiemetic medication. IVF infusing as ordered. Managing blood sugars. Will continue to monitor. * Plan of Care - Kim Daley RN - 01/03/2018 5:56 AM CDT Goals: Clinical Goals for the Shift: Patient will have stable blood sugars. Summary: Pt. Resting per bed. Blood sugars have been better controlled this shift. Patient FSBS was62 at 0200. Patient drank some orange juice. IVF's infusing as ordered. Possible d/c today. Call light within reach. * Plan of Care - Michelle Reeves RN - 01/02/2018 7:08 PM CDT Goals: Clinical Goals for the Shift: adequate rest, controlled and stable blood glucose Summary: Pt is alert and oriented with no complaints. Pt started on a Consistent Carb diet this evening and tolerated well. LR infusing at 75 ml/hr. Pt's blood glucose are being controlled and pt started back on insulin regimen. Pt does have appointment with an dam attendant as an outpatient in January. * Plan of Care - Kim Daley RN - 01/02/2018 6:49 AM CDT Patient resting per bed. Medicated for nausea x1. Up ad cleve in room. IVF's as ordered. * Plan of Care - Kim Daley RN - 01/02/2018 5:49 AM CDT Goals: Clinical Goals for the Shift: Patient will have decreased vomiting and nausea. Patient will have regulated blood sugars. Summary: Patient medicated with antiemetic x1 this shift. IVF's infusing as ordered. Up ad cleve in room. Patient slept well, but did have some dry heaves. NPO. Call light within reach. * Assessment & Plan Note - Gio Sewell MD - 01/02/2018 2:51 AM CDT Associated Problem(s): Thrombocytosis (Resolved 03/06/2020) Slightly elevated platelet counts. Possibly acute reactant reaction due to possibly gastroenteritisversus DKA Will repeat CBC in a.m. * Assessment & Plan Note - Gio Sewell MD - 01/02/2018 2:51 AM CDT Associated Problem(s): Ketonuria (Resolved 03/06/2020) Ketonuria present. Patient with persistent nausea and vomiting possibly starvation ketones versus DKA related. Will confirm the test with beta hydroxy butyrate Continue with IV fluids and insulin as stated above Strict I&Os * Assessment & Plan Note - Gio Sewell MD - 01/02/2018 2:44 AM CDT Associated Problem(s): Uncontrolled type 1 diabetes mellitus with hyperglycemia (CMS/HCC) (HCC) Blood sugars are elevated Reportedly patient had been compliant with her medications. ABGs were consistent with alkalosis, less likely to be DKA state. Will admit per hyperglycemia protocol D/c IV fluids with dextrose Patient is dehydrated-will bolus normal saline Continue with Lantus and Humalog Will start on medium dose insulin sliding scale. * Assessment & Plan Note - Gio Sewell MD - 01/02/2018 2:43 AM CDT Associated Problem(s): Metabolic alkalosis (Resolved 03/06/2020) ABGs are consistent with metabolic alkalosis, most likely due to persistent nausea and vomiting. The Replete IV fluids Check for electrolytes, replete as needed. * Assessment & Plan Note - Gio Sewell MD - 01/02/2018 2:41 AM CDT Associated Problem(s): Dehydration Urine is not concentrated, however patient clinically looks dehydrated she did with dry lips. Bolus with normal saline, and follow with LR Strict I&Os Monitor kidney function with daily BMP Repeat ABGs at 5:00 a.m. Will check for beta hydroxybutyrate * Assessment & Plan Note - Gio Sewell MD - 01/02/2018 2:37 AM CDT Associated Problem(s): Cannabinoid hyperemesis syndrome Nausea vomiting. Patient presents with ketonuria, however [...] Zofran as needed for nausea and vomiting. documented in this encounter Plan of Treatment Not on file documented as of this encounter Procedures Procedure Name Priority Date/Time Associated Diagnosis Comments POCT GLUCOSE DEVICE Routine 01/04/2018 4 :11 PM CDT POCT GLUCOSE DEVICE Routine 01/04/2018 1 1:51 AM CDT POCT GLUCOSE DEVICE Routine 01/04/2018 8 :50 AM CDT POCT GLUCOSE DEVICE Routine 01/04/2018 8 :04 AM CDT EGFR Routine 01/04/2018 5:36 AM CDT DIFFERENTIAL AUTO Routine 01/04/2018 5:3 6 AM CDT CBC WITH AUTO DIFFERENTIAL Routine 01/04/2018 5:36 AM CDT PHOSPHORUS Routine 01/04/2018 5:36 AM CDT MAGNESIUM Routine 01/04/2018 5:36 AM CDT BASIC METABOLIC PANEL Routine 01/04/2018 5:36 AM CDT POCT GLUCOSE DEVICE Routine 01/04/2018 2 :15 AM CDT POCT GLUCOSE DEVICE Routine 01/03/2018 8 :53 PM CDT TROPONIN T STAT 01/03/2018 7:14 PM CDT ECG 12-LEAD Routine 01/03/2018 7:09 PM CDT ECG 12-LEAD STAT 01/03/2018 6:43 PM CDT Sinus tachycardia POCT GLUCOSE DEVICE Routine 01/03/2018 5 :05 PM CDT POCT GLUCOSE DEVICE Routine 01/03/2018 1 1:33 AM CDT POCT GLUCOSE DEVICE Routine 01/03/2018 7 :51 AM CDT POCT GLUCOSE DEVICE Routine 01/03/2018 5 :25 AM CDT EGFR Routine 01/03/2018 5:03 AM CDT PHOSPHORUS Add-On 01/03/2018 5:03 AM CDT MAGNESIUM Add-On 01/03/2018 5:03 AM CDT BASIC METABOLIC PANEL Routine 01/03/2018 5:03 AM CDT POCT GLUCOSE DEVICE Routine 01/03/2018 2 :36 AM CDT POCT GLUCOSE DEVICE Routine 01/02/2018 9 :24 PM CDT POCT GLUCOSE DEVICE Routine 01/02/2018 4 :35 PM CDT EGFR STAT 01/02/2018 12:49 PM CDT BASIC METABOLIC PANEL STAT 01/02/2018 12:49 PM CDT POCT GLUCOSE DEVICE Routine 01/02/2018 1 0:56 AM CDT POCT GLUCOSE DEVICE Routine 01/02/2018 7 :46 AM CDT BLOOD GAS, ARTERIAL Timed 01/02/2018 5 :20 AM CDT POCT GLUCOSE DEVICE Routine 01/02/2018 3 :46 AM CDT EGFR Timed 01/02/2018 3:43 AM CDT BETA-HYDROXYBUTYRATE Routine 01/02/2018 3:43 AM CDT PHOSPHORUS Routine 01/02/2018 3:43 AM CDT MAGNESIUM Routine 01/02/2018 3:43 AM CDT BASIC METABOLIC PANEL Timed 01/02/2018 3:43 AM CDT POCT GLUCOSE DEVICE Routine 01/02/2018 2 :15 AM CDT URINALYSIS AND REFLEX TO MICROSCOPIC AND CULTURE STAT 01/01/2018 9:58 PM CDT HCG, URINE, QUALITATIVE STAT 01/01/2018 9:58 PM CDT EGFR STAT 01/01/2018 8:57 PM CDT DIFFERENTIAL AUTO STAT 01/01/2018 8:5 7 PM CDT CBC WITH AUTO DIFFERENTIAL STAT 01/01/2018 8:57 PM CDT COMPREHENSIVE METABOLIC PANEL STAT 01/01/2018 8:57 PM CDT BLOOD GAS, ARTERIAL STAT 01/01/2018 8 :48 PM CDT POCT GLUCOSE DEVICE Routine 01/01/2018 8 :40 PM CDT documented in this encounter Results * (ABNORMAL) POCT glucose (01/04/2018 4:11 PM CDT) Glucose, POC 116(H) 71 - 98 mg/dL TOMY SAHU (VASHTI) Blood specimen (specimen) 01/04/2018 4:11 PM CDT 01/04/2018 4:11 PM CDT Moriah LUQUE) - 01/04/2018 4:12 PM CDT Pamela Pires MD LAB POCT ORDERABLES - DE VICE Final Result TOMY SAHU (VASHTI) 1 [facility] Department [place] [address] * (ABNORMAL) POCT glucose (01/04/2018 11:51 AM CDT) Glucose, POC 218(H) 71 - 98 mg/dL TOMY SAHU (VASHTI) Blood specimen (specimen) 01/04/2018 11:51 AM CDT 01/04/2018 11:51 AM CDT Moriah SAHU (CONWAY) - 01/04/2018 11:52 AM CDT Pamela Pires MD LAB POCT ORDERABLES - DE VICE Final Result Performing Organization Address City/[facility] Co de Phone Number TOMY SAHU (CONWAY) [address] [place] [address] * (ABNORMAL) POCT glucose (01/04/2018 8:50 AM CDT) Glucose, POC 129(H) 71 - 98 mg/dL [facility] Blood specimen (specimen) 01/04/2018 8:50 AM CDT 01/04/2018 8:50 AM CDT Narrative ASHLEYTOSHA LUIS ALBERTO (CONWAY) - 01/04/2018 8:53 AM CDT Pamela Pires MD LAB POCT ORDERABLES - DE VICE Final Result Performing Organization Address [facility] Co de Phone Number TOMY [facility] (CONWAY) [address] [place] [address] [employer] [address] * (ABNORMAL) POCT glucose (01/04/2018 8:04 AM CDT) Glucose, POC 60(L) 71 - 98 mg/dL [facility] (CON[facility] Blood specimen (specimen) 01/04/2018 8:04 AM CDT 01/04/2018 8:04 AM CDT Narrative [facility]OMY [facility] (CONWAY) - 01/04/2018 8:05 AM CDT Pamela Pires MD LAB POCT ORDERABLES - DE VICE Final Result Performing Organization Address City/[facility]/ZIP Co de Phone Number TOMY SAHU (CONWAY) 1 [facility] [employer] [address] * eGFR (01/04/2018 5:36 AM CDT) eGFR >60 mL/min/1.7 3 m2 [facility]OMY [facility] (V[place]HTI) Comment: Interpretive Data Reference Interval Normal ?>/= 90 mL/min/1.73m2 Mildly decreased* ? 60 - 89 mL/min/1.73m2 Mildly to moderately decreased ?45 - 59 mL/min/1.73m2 Moderately to severely decreased ??30 - 44 mL/min/1.73m2 Severely decreased ?15 - 29 mL/min/1.73m2 Kidney Failure ?< 15 ??mL/min/1.73m2 *Relative to young adult level If -[place] multiply value by 1.16. Estimated glomerular filtration [...] was last reviewed 2015. Blood specimen (specimen) 01/04/2018 5:36 AM CDT 01/04/2018 6:03 AM CDT Narrative TOMY SAHU (VASHTI) - 01/04/2018 8:27 AM CDT us Josette Sloan MD LAB BLOOD ORDERABLES Fin al Result TOMY [facility] (VASHTI) 1 [facility] Department of Laboratories [place], [place] [id number] * (ABNORMAL) Differential, auto (01/04/2018 5:36 AM CDT) Neutrophil abs 2.7 1.7 - 6.5 K/cumm [facility] ([place]HTI) Imm gran abs 0.0 0.0 - 0.1 K/cumm [facility] ([place]) Lymphocyte abs 4.0(H) 0.8 - 3.3 K/cumm [facility] ([place]) Monocyte abs 1.1(H) 0.2 - 0.8 K/cumm [facility] ([place]) Eosinophil abs 0.0 0.0 - 0.5 K/cumm [facility] ([place]) Basophil abs 0.0 0.0 - 0.1 K/cumm [facility] ([place]) Neutrophil pct 34.0 % [facility] (V[place]HTI) Comment: Interpretive [...] was last revised on 2017. Lymphocyte pct 51.2 % [facility] ([place]HT[place]) Comment: Interpretive [...] last revised on 2017. Blood specimen (specimen) 01/04/2018 5:36 AM CDT 01/04/2018 6:03 AM CDT Narrative [facility] (V[place]HTI) - 01/04/2018 6:30 AM CDT us Josette Sloan MD LAB BLOOD ORDERABLES Fin al Result Performing Organization Address City/[facility]/ZIP Co de Phone Number TOMY LUQUE) 1 [facility] Department [place] [address] * (ABNORMAL) Basic metabolic panel (01/04/2018 5:36 AM CDT) Sodium 136 135 - 145 [...] - 1.10 mg/dL [facility] ([place]) Glucose 67(L) 70 - 199 mg/dL [facility] (VASHTI) Comment: Interpretive Data Fasting [...] 2017. Calcium 8.7 8.5 - 10.3 mg/dL [facility] (V[place]HTI) Blood specimen (specimen) 01/04/2018 5:36 AM CDT 01/04/2018 6:03 AM CDT Narrative TOMY [facility] ([place]HTI) - 01/04/2018 8:27 AM CDT us Josette Sloan MD LAB BLOOD ORDERABLES Fin al Result Performing Organization Address [facility]/State/ZIP Co de Phone Number TOMY [facility] (VASHTI) 1 [facility] Department [place] [address] * (ABNORMAL) CBC with auto differential (01/04/2018 5:36 AM CDT) WBC 7.8 3.8 - 9.9 K/cumm [facility] ([place]) Hgb 12.2 11.9 - 15.5 g/dL [facility] ([place]) Hct 35.6 35.6 - 45.5 % [facility] ([place]) Plt 441(H) 150 - 400 K/cumm [facility] ([place]) MPV 8.8(L) 9.1 - 12.3 fL [facility] ([place]) RBC 4.50 3.90 - 5.20 M/cumm [facility] ([place]) MCV 79.1(L) 81.3 - 96.4 fL [facility] ([place]) MCH 27.1 27.1 - 33.3 pg [facility] ([place]) MCHC 34.3 32.3 - 35.7 g/dL [facility] ([place]) RDW CV 14.6 11.1 - 14.9 % [facility] ([place]) RDW SD 41.4 35.7 - 48.1 fL [facility] ([place]) NRBC abs 0.00 0.00 - 0.01 K/cumm [facility] ([place]) Blood specimen (specimen) 01/04/2018 5:36 AM CDT 01/04/2018 6:03 AM CDT Narrative [facility] ([place]HTI) - 01/04/2018 6:30 AM CDT us Josette Sloan MD LAB BLOOD ORDERABLES Fin al Result TOMY SAHU (VASHTI) 1 [facility] Department [place] [address] * Phosphorus (01/04/2018 5:36 AM CDT) Pathologist [facility] Phosphorus, pl 4.1 2.3 - 4.5 mg/dL [facility] ([place]) Blood specimen (specimen) 01/04/2018 5:36 AM CDT 01/04/2018 6:03 AM CDT Narrative TOMY SAHU (VASHTI) - 01/04/2018 8:27 AM CDT us Josette Sloan MD LAB BLOOD ORDERABLES Fin al Result Performing Organization Address City/[facility]/ZIP Co de Phone Number TOMY SAHU (VASHTI) 1 [facility] [place] [address] * Magnesium (01/04/2018 5:36 AM CDT) Magnesium 1.7 1.6 - 2.4 mg/dL TOMY SAHU (VASHTI) Blood specimen (specimen) 01/04/2018 5:36 AM CDT 01/04/2018 6:03 AM CDT Narrative TOMY SAHU (VASHTI) - 01/04/2018 8:27 AM CDT us Josette Sloan MD LAB BLOOD ORDERABLES Fin al Result Performing Organization Address [facility] Co de Phone Number TOMY SAHU (VASHTI) 1 [facility] [employer] [address] * POCT glucose (01/04/2018 2:15 AM CDT) Glucose, POC 96 71 - 98 mg/dL TOMY SAHU (VASHTI) Blood specimen (specimen) 01/04/2018 2:15 AM CDT 01/04/2018 2:15 AM CDT Narrative TOMY SAHU (VASHTI) - 01/04/2018 2:16 AM CDT Josette Sloan MD LAB POCT ORDERABLES - DE VICE Final Result TOMY SAHU (VASHTI) 1 [facility] [employer] [address] * (ABNORMAL) POCT glucose (01/03/2018 8:53 PM CDT) [facility] Glucose, POC 154(H) 71 - 98 mg/dL TOMY SAHU (VASHTI) Blood specimen (specimen) 01/03/2018 8:53 PM CDT 01/03/2018 8:53 PM CDT Narrative TOMY SAHU (VASHTI) - 01/03/2018 8:55 PM CDT Josette Sloan MD LAB POCT ORDERABLES - DE VICE Final Result Performing Organization Address City/[facility]/ZIP Co de Phone Number TOMY SAHU (CONWAY) 1 [facility] [place] [address] * Troponin T (01/03/2018 7:14 PM CDT) [facility] Troponin T <0.01 0.00 - 0.01 ng/mL TOMY LUIS ALBERTO (CONWAY) Comment: Interpretive Data Reference ranges for children <18 years of age have not been established. - > or = 18 years: Serial determinations are recommended for the diagnosis of myocardial infarction. ??Temporal rise and fall are consistent with myocardial infarction when at least one value is above the 99th percentile upper reference limit for troponin assay. ??Journal of the [place] College [employer]iology 2012;60:1581-98. Current Interpretive Data Last Revised Date: 2017. Blood specimen (specimen) 01/03/2018 7:14 PM CDT 01/03/2018 7:17 PM CDT Narrative TOMY SAHU (VASHIT) - 01/03/2018 7:38 PM CDT Josette Sloan MD LAB BLOOD ORDERABLES Fin al Result TOMY SAHU (VASHTI) 1 [facility] Department of [employer] [address] * ECG 12 lead (01/03/2018 7:09 PM CDT) [facility] Patient age 22 years [facility] Interpretation Text SINUS RHYTHMRIGHT ATRIAL ENLARGEMENTLEFT ATRIAL ENLARGEMENTABNORMAL ECGPREVIOUS TRACIN01/03/2018 18.43 [facility] Comment:Physician Interprete r Dr. Cl Patel M.D. Ventricular Rate EKG/Min 93 /min [facility] P Wave Duration 115 ms [facility] QRS-Interval (MSEC) 77 ms [facility] TX-Interval (MSEC) 126 ms [facility] QT Interval 332 ms [facility] QTc 389 ms [facility] QTC Interval ms [facility] P [place] 74 deg [facility] QRS [place] 87 deg [facility] T [place] 59 deg [facility] 01/03/2018 7:09 PM CDT us Notinfile Unknown ECG ORDERABLES Final Result Performing Organization Address [facility] de Phone Number [facility] * ECG 12 lead (01/03/2018 6:43 PM CDT) Patient age 22 years [facility] Interpretation Text SINUS TACHYCARDIABi-atrial enlargementPOSSIBLE ANTERIOR MYOCARDIAL INFARCTIONABNORMAL ECGPREVIOUS TRACIN12/08/2017 23.01 [facility] Comment:Physician Interprete r Dr. Cl Patel M.D. Ventricular Rate EKG/Min 130 /min [facility] P Wave Duration 113 ms [facility] QRS-Interval (MSEC) 77 ms [facility] TX-Interval (MSEC) 124 ms [facility] QT Interval 284 ms [facility] QTc 406 ms [facility] QTC Interval ms [facility] P [place] 76 deg [facility] QRS [place] 90 deg [facility] T [place] 50 deg [facility] 01/03/2018 6:43 PM CDT us Josette Sloan MD ECG ORDERABLES Final Re sult Performing Organization Address [facility] Co de Phone Number [facility] * (ABNORMAL) POCT glucose (01/03/2018 5:05 PM CDT) Glucose, POC 113(H) 71 - 98 mg/dL TOMY [facility] (VASHTI) Blood specimen (specimen) 01/03/2018 5:05 PM CDT 01/03/2018 5:05 PM CDT Narrative TOMY SAHU (VASHTI) - 01/03/2018 5:06 PM CDT us Josette Sloan MD LAB POCT ORDERABLES - DE VICE Final Result Performing Organization Address City/[facility]/ZIP Co de Phone Number TOMY SAHU (CONWAY) [address] [place] [address] [place] [address] * (ABNORMAL) POCT glucose (01/03/2018 11:33 AM CDT) Glucose, POC 195(H) 71 - 98 mg/dL TOMY SAHU (CONWAY) Blood specimen (specimen) 01/03/2018 11:33 AM CDT 01/03/2018 11:33 AM CDT Narrative TOMY SAHU (CONWAY) - 01/03/2018 11:34 AM CDT us Josette Sloan MD LAB POCT ORDERABLES - DE VICE Final Result Performing Organization Address [facility] Co de Phone Number TOMY SAHU (CONWAY) [address] [place] [address] [place] [address] * (ABNORMAL) POCT glucose (01/03/2018 7:51 AM CDT) Glucose, POC 113(H) 71 - 98 mg/dL TOMY SAHU (CONWAY) Blood specimen (specimen) 01/03/2018 7:51 AM CDT 01/03/2018 7:51 AM CDT Narrative TOMY SAHU (CONWAY) - 01/03/2018 7:52 AM CDT us Josette Sloan MD LAB POCT ORDERABLES - DE VICE Final Result Performing Organization Address City/[facility]/ZIP Co de Phone Number TOMY SAHU (CONWAY) [address] [place] [address] * (ABNORMAL) POCT glucose (01/03/2018 5:25 AM CDT) Glucose, POC 63(L) 71 - 98 mg/dL TOMY SAHU (CONWAY) Comment:Glu2: RN/MD Notified Blood specimen (specimen) 01/03/2018 5:25 AM CDT 01/03/2018 5:25 AM CDT Narrative TOMY SAHU (CONWAY) - 01/03/2018 5:28 AM CDT Josette Sloan MD LAB POCT ORDERABLES - DE VICE Final Result TOMY SAHU (CONWAY) 1 [place] [address] * Phosphorus (01/03/2018 5:03 AM CDT) Pathologist [facility] Phosphorus, pl 3.2 2.3 - 4.5 mg/dL TOMY SAHU (CONWAY) Blood specimen (specimen) 01/03/2018 5:03 AM CDT 01/03/2018 1:11 PM CDT Narrative TOMY SAHU (CONWAY) - 01/03/2018 1:25 PM CDT Josette Sloan MD LAB BLOOD ORDERABLES Fin al Result TOMY SAHU (CONWAY) 1 [place] [address] * Magnesium (01/03/2018 5:03 AM CDT) Magnesium 1.8 1.6 - 2.4 mg/dL TOMY SAHU (CONWAY) Blood specimen (specimen) 01/03/2018 5:03 AM CDT 01/03/2018 1:11 PM CDT Narrative TOMY SAHU (CONWAY) - 01/03/2018 1:25 PM CDT us Josette Sloan MD LAB BLOOD ORDERABLES Fin al Result TOMY LUQUE) 1 [facility] [place] [address] * eGFR (01/03/2018 5:03 AM CDT) eGFR >60 mL/min/1.7 3 m2 TOMY SAHU (CONWAY) Comment: Interpretive Data Reference Interval Normal ?>/= 90 mL/min/1.73m2 Mildly decreased* ? 60 - 89 mL/min/1.73m2 Mildly to moderately decreased ?45 - 59 mL/min/1.73m2 Moderately to severely decreased ??30 - 44 mL/min/1.73m2 Severely decreased ?15 - 29 mL/min/1.73m2 Kidney Failure ?< 15 ??mL/min/1.73m2 *Relative to young adult level If -[place] multiply value by 1.16. Estimated glomerular filtration [...] was last reviewed 2015. Blood specimen (specimen) 01/03/2018 5:03 AM CDT 01/03/2018 5:12 AM CDT Narrative TOMY SAHU (VASHTI) - 01/03/2018 6:00 AM CDT us Josette Sloan MD LAB BLOOD ORDERABLES Fin al Result Performing Organization Address City/[facility] Co de Phone Number TOMY SAHU (VASHTI) 1 [facility] Department [place] [address] * (ABNORMAL) Basic metabolic panel (01/03/2018 5:03 AM CDT) Sodium 141 135 - 145 [...] - 1.10 mg/dL [facility] (VASHTI) Glucose 50(C) 70 - 199 mg/dL [facility] (VASHTI) Comment: Critical result called to and read back by Мария Narayan ([facility]_) on _01/03/2018 06:00:40 CDT to _Irasema Gould. Interpretive Data Fasting glucose >/= 126 mg/dl [...] 2017. Calcium 8.6 8.5 - 10.3 mg/dL [facility] (VASHTI) Blood specimen (specimen) 01/03/2018 5:03 AM CDT 01/03/2018 5:12 AM CDT Narrative [facility] (VASHTI) - 01/03/2018 6:00 AM CDT us Josette Sloan MD LAB BLOOD ORDERABLES Fin al Result TOMY SAHU (VASHTI) 1 [facility] [place] [employer] [address] * (ABNORMAL) POCT glucose (01/03/2018 2:36 AM CDT) Glucose, POC 63(L) 71 - 98 mg/dL TOMY SAHU (VASHTI) Blood specimen (specimen) 01/03/2018 2:36 AM CDT 01/03/2018 2:36 AM CDT Narrative TOMY SAHU (VASHTI) - 01/03/2018 2:37 AM CDT us Josette Sloan MD LAB POCT ORDERABLES - DE VICE Final Result TOMY SAHU (VASHTI) 1 [facility] [place] [address] * (ABNORMAL) POCT glucose (01/02/2018 9:24 PM CDT) Glucose, POC 166(H) 71 - 98 mg/dL TOMY SAHU (VASHTI) Blood specimen (specimen) 01/02/2018 9:24 PM CDT 01/02/2018 9:24 PM CDT Narrative TOMY SAHU (VASHTI) - 01/02/2018 9:25 PM CDT us Josette Sloan MD LAB POCT ORDERABLES - DE VICE Final Result TOMY SAHU (VASHTI) 1 [facility] [place] [employer] [address] * (ABNORMAL) POCT glucose (01/02/2018 4:35 PM CDT) Glucose, POC 206(H) 71 - 98 mg/dL TOMY SAHU (VASHTI) Blood specimen (specimen) 01/02/2018 4:35 PM CDT 01/02/2018 4:35 PM CDT Narrative TOMY SAHU (VASHTI) - 01/02/2018 4:35 PM CDT Josette Sloan MD LAB POCT ORDERABLES - DE VICE Final Result TOMY SAHU (VASHTI) 1 [facility] Department [place] [address] * eGFR (01/02/2018 12:49 PM CDT) eGFR >60 mL/min/1.7 3 m2 TOMY SAHU (VASHTI) Comment: Interpretive Data Reference Interval Normal ?>/= 90 mL/min/1.73m2 Mildly decreased* ? 60 - 89 mL/min/1.73m2 Mildly to moderately decreased ?45 - 59 mL/min/1.73m2 Moderately to severely decreased ??30 - 44 mL/min/1.73m2 Severely decreased ?15 - 29 mL/min/1.73m2 Kidney Failure ?< 15 ??mL/min/1.73m2 *Relative to young adult level If -[place] multiply value by 1.16. Estimated glomerular filtration [...] was last reviewed 2015. Blood specimen (specimen) 01/02/2018 12:49 PM CDT 01/02/2018 1:03 PM CDT Narrative TOMY SAHU (VASHTI) - 01/02/2018 1:28 PM CDT us Josette Sloan MD LAB BLOOD ORDERABLES Fin al Result Performing Organization Address City/[facility]/ZIP Co de Phone Number TOMY SAHU (VASHTI) 1 [facility] [place] [address] * (ABNORMAL) Basic metabolic panel (01/02/2018 12:49 PM CDT) Sodium 137 135 - 145 mmol/L [facility] ([place]ASHTI) Potassium, pl 4.1 3.3 - 4.9 mmol/L [facility] ([place]HTI) Chloride 99 97 - 110 mmol/L [facility] ([place]HTI) CO2 20(L) 22 - 32 mmol/L [facility] ([place]HTI) Anion gap 18(H) 2 - 15 mmol/L [facility] ([place]HTI) BUN 10 8 - 25 mg/dL [facility] ([place]HTI) Creatinine 0.35(L) 0.60 - 1.10 mg/dL [facility] ([place]HTI) Glucose 165 70 - 199 mg/dL [facility] ([place]ASHTI) [...] mg/dL [facility] ([place]ASHTI) Blood specimen (specimen) 01/02/2018 12:49 PM CDT 01/02/2018 1:03 PM CDT Narrative [facility] (VASHTI) - 01/02/2018 1:28 PM CDT Josette Sloan MD LAB BLOOD ORDERABLES Fin al Result Performing Organization Address City/[facility]/ZIP Co de Phone Number TOMY SAHU (VASHTI) 1 [facility] [employer] [address] * (ABNORMAL) POCT glucose (01/02/2018 10:56 AM CDT) Glucose, POC 143(H) 71 - 98 mg/dL TOMY SAHU (VASHTI) Blood specimen (specimen) 01/02/2018 10:56 AM CDT 01/02/2018 10:56 AM CDT Narrative TOMY SAHU (VASHTI) - 01/02/2018 10:57 AM CDT Josette Sloan MD LAB POCT ORDERABLES - DE VICE Final Result TOMY SAHU (CONWAY) [address] [place] [address] [employer] [address] * (ABNORMAL) POCT glucose (01/02/2018 7:46 AM CDT) [facility] Glucose, POC 104(H) 71 - 98 mg/dL TOMY SAHU (CONWAY) Blood specimen (specimen) 01/02/2018 7:46 AM CDT 01/02/2018 7:46 AM CDT Narrative TOMY SAHU (VASHTI) - 01/02/2018 7:47 AM CDT Josette Sloan MD LAB POCT ORDERABLES - DE VICE Final Result TOMY OwensCONWAY) 1 [facility] [employer] [address] * (ABNORMAL) Blood gas, arterial (01/02/2018 5:20 AM CDT) pH, Art 7.40 7.35 - 7.45 [facility] (VASHTI) PCO2, Arterial 36 35 - 45 mmHg [facility] (CONWAY) PO2, Arterial 99 83 - 108 mmHg [facility] (CONWAY) HCO3 Art (Calculated) 22 20 - 30 mmol/L [facility] (VASHTI) BE, art -2 mmol/L TOMY LUIS ALBERTO (VASHTI) Comment: Interpretive Data No Reference Range Established Current Interpretive Data was last revised on 2017 O2 Sat Art (Measured) 98(H) 90 - 95 % TOMY LUIS ALBERTO (VASHTI) Blood specimen (specimen) 01/02/2018 5:20 AM CDT 01/02/2018 5:24 AM CDT Narrative TOMY SAHU (VASHTI) - 01/02/2018 5:27 AM CDT us Gio Sewell MD LAB BLOOD ORDERABLES Final Re sult TOMY SAHU (VASHTI) 1 [facility] [place] [address] * (ABNORMAL) POCT glucose (01/02/2018 3:46 AM CDT) Glucose, POC 192(H) 71 - 98 mg/dL TOMY SAHU (VASHTI) Blood specimen (specimen) 01/02/2018 3:46 AM CDT 01/02/2018 3:46 AM CDT Narrative TOMY SAHU (VASHTI) - 01/02/2018 3:47 AM CDT us Gio Sewell MD LAB POCT ORDERABLES - DEVICE Final Result TOMY SAHU (CONWAY) 1 [facility] [place] [address] * eGFR (01/02/2018 3:43 AM CDT) eGFR >60 mL/min/1.7 3 m2 TOMY SAHU (VASHTI) Comment: Interpretive Data Reference Interval Normal ?>/= 90 mL/min/1.73m2 Mildly decreased* ? 60 - 89 mL/min/1.73m2 Mildly to moderately decreased ?45 - 59 mL/min/1.73m2 Moderately to severely decreased ??30 - 44 mL/min/1.73m2 Severely decreased ?15 - 29 mL/min/1.73m2 Kidney Failure ?< 15 ??mL/min/1.73m2 *Relative to young adult level If -[place] multiply value by 1.16. Estimated glomerular filtration [...] was last reviewed 2015. Blood specimen (specimen) 01/02/2018 3:43 AM CDT 01/02/2018 3:47 AM CDT Narrative TOMY SAHU (VASHTI) - 01/02/2018 4:19 AM CDT us Gio Sewell MD LAB BLOOD ORDERABLES Final Re sult TOMY LUIS ALBERTO (CONWAY) 1 [facility] Department of Laboratories [place], [place] [id number] * (ABNORMAL) Beta-hydroxybutyrate (01/02/2018 3:43 AM CDT) Beta-Hydroxybu tyrate 4.00(H) 0.00 - 0.40 mmol/L TOMY SAHU (CONWAY) Comment:Testing performed by : [facility], [address] [place] [address], [place]., [address] Blood specimen (specimen) 01/02/2018 3:43 AM CDT 01/03/2018 8:04 PM CDT Narrative TOMY SAHU (VASHTI) - 01/03/2018 8:34 PM CDT us Gio Sewell MD LAB BLOOD ORDERABLES Final Re sult TOMY SAHU (VASHTI) 1 [facility] Department [place] [address] * (ABNORMAL) Basic metabolic panel (01/02/2018 3:43 AM CDT) Sodium 136 135 - 145 [...] (VASHTI) Glucose 233(H) 70 - 199 mg/dL [facility] (VASHTI) Comment: Interpretive Data Fasting [...] 2017. Calcium 8.4(L) 8.5 - 10.3 mg/dL [facility] (VASHTI) Blood specimen (specimen) 01/02/2018 3:43 AM CDT 01/02/2018 3:47 AM CDT Narrative TOMY SAHU (VASHTI) - 01/02/2018 4:19 AM CDT us Gio Sewell MD LAB BLOOD ORDERABLES Final Re sult TOMY SAHU (VASHTI) 1 [facility] Department [place] [address] * Phosphorus (01/02/2018 3:43 AM CDT) Phosphorus, pl 2.9 2.3 - 4.5 mg/dL TOMY SAHU (VASHTI) Blood specimen (specimen) 01/02/2018 3:43 AM CDT 01/02/2018 3:47 AM CDT Narrative TOMY SAHU (VASHTI) - 01/02/2018 4:19 AM CDT Gio Sewell MD LAB BLOOD ORDERABLES Final Re sult TOMY SAHU (VASHTI) 1 [facility] [employer] [address] * Magnesium (01/02/2018 3:43 AM CDT) [facility] Magnesium 1.7 1.6 - 2.4 mg/dL TOMY SAHU (VASHTI) Blood specimen (specimen) 01/02/2018 3:43 AM CDT 01/02/2018 3:47 AM CDT Narrative TOMY SAHU (VASHTI) - 01/02/2018 4:19 AM CDT Gio Sewell MD LAB BLOOD ORDERABLES Final Re sult TOMY SAHU (VASHTI) 1 [facility] [place] [employer] [address] * (ABNORMAL) POCT glucose (01/02/2018 2:15 AM CDT) Pathologist [facility] Glucose, POC 305(C) 71 - 98 mg/dL TOMY SAHU (VASHTI) Blood specimen (specimen) 01/02/2018 2:15 AM CDT 01/02/2018 2:15 AM CDT Narrative TOMY SAHU (VASHTI) - 01/02/2018 2:16 AM CDT Gio Sewell MD LAB POCT ORDERABLES - DEVICE Final Result Performing Organization Address City/[facility]/ZIP Co de Phone Number [facility] (VASHTI) 1 [facility] [place] [employer] [address] * hCG, urine, qualitative (01/01/2018 9:58 PM CDT) HCG, ur Negative Negative [facility] (VASHTI) Urine 01/01/2018 9:58 PM CDT 01/01/2018 9:59 PM CDT Narrative [facility] (VASHTI) - 01/01/2018 10:06 PM CDT us Kim Espitia MD LAB URINE ORDERABLES Final Result Performing Organization Address [facility] Co de Phone Number [facility] (VASHTI) 1 [facility] [place] [employer] [address] * (ABNORMAL) Urinalysis reflex to microscopic and culture Urine, clean voided (01/01/2018 9:58 PM CDT) Color, ur Yellow Yellow [facility] (VASHTI) Clarity, ur Clear Clear [facility] (VASHTI) Specific gravity, ur 1.020 1.010 - 1.025 [facility] (VASHTI) pH, urine 7.5 CERNER [...] esterase, ur Negative Negative [facility] (VASHTI) Urine, clean voided 01/01/2018 9:58 PM CDT 01/01/2018 9:59 PM CDT Narrative [facility] (VASHTI) - 01/01/2018 10:06 PM CDT ?? Urine pH is affected by diet, medications, systemic acid-base disturbances, and renal tubular function. ??pH may affect urinary stone formation. ??For example, urine pH below 6.0 may help reduce the tendency for calcium phosphate stones and pH greater than 6.0 may reduce the tendency for uric acid stone formation. Source: [employer]. Last revised 05-13-2017 us Kim Espitia MD LAB MICROBIOLOGY - GENERAL ORDERABLES Final Result TOMY [facility] (CONWAY) 1 [facility] [place] [address] * eGFR (01/01/2018 8:57 PM CDT) eGFR >60 mL/min/1.7 3 m2 TOMY SAHU (CONWAY) Comment: Interpretive Data Reference Interval Normal ?>/= 90 mL/min/1.73m2 Mildly decreased* ? 60 - 89 mL/min/1.73m2 Mildly to moderately decreased ?45 - 59 mL/min/1.73m2 Moderately to severely decreased ??30 - 44 mL/min/1.73m2 Severely decreased ?15 - 29 mL/min/1.73m2 Kidney Failure ?< 15 ??mL/min/1.73m2 *Relative to young adult level If -[place] multiply value by 1.16. Estimated glomerular filtration [...] was last reviewed 2015. Blood specimen (specimen) 01/01/2018 8:57 PM CDT 01/01/2018 9:00 PM CDT Narrative TOMY SAHU (VASHTI) - 01/01/2018 9:21 PM CDT us Kim Espitia MD LAB BLOOD ORDERABLES Final Result TOMY SAHU (CONWAY) 1 [facility] [place] [address] * Differential, auto (01/01/2018 8:57 PM CDT) Neutrophil abs 5.3 1.7 - 6.5 K/cumm [facility] ([place]WAY) Imm gran abs 0.0 0.0 - 0.1 K/cumm [facility] ([place]) Lymphocyte abs 0.8 0.8 - 3.3 K/cumm [facility] ([place]) Monocyte abs 0.3 0.2 - 0.8 K/cumm [facility] ([place]) Eosinophil abs 0.0 0.0 - 0.5 K/cumm [facility] ([place]) Basophil abs 0.0 0.0 - 0.1 K/cumm [facility] (VASHTI) Neutrophil pct 82.1 % [facility]NE R [facility] ([place]AY) Comment: Interpretive Data Percent cell count reference [...] was last revised on 2017. Lymphocyte pct 12.4 % [facility]ERNE R [facility] (VASHTI) Comment: Interpretive Data Percent cell count reference ranges are not reported, since discordance with absolute values may lead to misinterpretation of CBC data. Current Interpretive Data was last revised on 2017. Monocyte pct 4.5 % [facility] (VASHTI) Comment: Interpretive Data [...] last revised on 2017. Blood specimen (specimen) 01/01/2018 8:57 PM CDT 01/01/2018 9:00 PM CDT Narrative [facility] (VASHTI) - 01/01/2018 9:02 PM CDT us Kim Espitia MD LAB BLOOD ORDERABLES Final Result TOMY [facility] (CONWAY) 1 [facility] [place] [address] * (ABNORMAL) Comprehensive metabolic panel (01/01/2018 8:57 PM CDT) Sodium 136 135 - 145 [...] 1.2 mg/dL [facility] (VASHTI) Protein, pl 7.2 6.5 - 8.5 g/dL [facility] (VASHTI) Albumin 4.5 3.5 - 5.0 g/dL [facility] (VASHTI) Alk phos 73 40 - 130 Units/L [facility] (VASHTI) ALT 9 7 - 45 Units/L [facility] (VASHTI) AST 16 10 - 45 Units/L [facility] (VASHTI) Blood specimen (specimen) 01/01/2018 8:57 PM CDT 01/01/2018 9:00 PM CDT Narrative [facility] (VASHTI) - 01/01/2018 9:21 PM CDT us Kim Espitia MD LAB BLOOD ORDERABLES Final Result CERTOSHA [facility] (VASHTI) 1 [facility] [place] [address] * (ABNORMAL) CBC with auto differential (01/01/2018 8:57 PM CDT) WBC 6.4 3.8 - 9.9 K/cumm [facility] (VASHTI) Hgb 13.4 11.9 - 15.5 g/dL [facility] (VASHTI) Hct 41.5 35.6 - 45.5 % [facility] (VASHTI) Plt 464(H) 150 - 400 K/cumm [facility] (VASHTI) MPV 8.8(L) 9.1 - 12.3 fL [facility] (VASHTI) RBC 4.90 3.90 - 5.20 M/cumm [facility] (VASHTI) MCV 84.7 81.3 - 96.4 fL [facility] (VASHTI) MCH 27.3 27.1 - 33.3 pg TOMY [facility] (VASHTI) MCHC 32.3 32.3 - 35.7 g/dL ASHLEYNER [facility] (VASHTI) RDW CV 14.3 11.1 - 14.9 % TOMY [facility] (VASHTI) RDW SD 43.6 35.7 - 48.1 fL TOMY [facility] (VASHTI) NRBC abs 0.00 0.00 - 0.01 K/cumm TOMY [facility] (VASHTI) Blood specimen (specimen) 01/01/2018 8:57 PM CDT 01/01/2018 9:00 PM CDT Narrative TOMY [facility] (VASHTI) - 01/01/2018 9:02 PM CDT us Kim Espitia MD LAB BLOOD ORDERABLES Final Result TOMY SAHU (VASHTI) 1 [facility] [place] [address] * (ABNORMAL) Blood gas, arterial (01/01/2018 8:48 PM CDT) pH, Art 7.51(H) 7.35 - 7.45 [facility] (VASHTI) PCO2, Arterial 25(L) 35 - 45 mmHg [facility] PO2, Arterial 115(H) 83 - 108 mmHg [facility] HCO3 Art (Calculated) 19(L) 20 - 30 mmol/L [facility] BE, art -2 mmol/L [facility]VASHTI[facility] Comment: Interpretive Data No Reference Range Established Current Interpretive Data was last revised on 2017 O2 Sat Art (Measured) 99(H) 90 - 95 % TOMY [facility] (VASHTI) Blood specimen (specimen) 01/01/2018 8:48 PM CDT 01/01/2018 8:50 PM CDT Narrative TOMY [facility] (VASHTI) - 01/01/2018 8:55 PM CDT us Kim Espitia MD LAB BLOOD ORDERABLES Final Result TOMY SAHU (CONWAY) 1 [facility] [place] [address] * (ABNORMAL) POCT glucose (01/01/2018 8:40 PM CDT) Glucose, POC 200(H) 71 - 98 mg/dL TOMY SAHU (CONWAY) Comment:Glu2: RN/ Notified Blood specimen (specimen) 01/01/2018 8:40 PM CDT 01/01/2018 8:40 PM CDT Narrative TOMY SAHU (CONWAY) - 01/01/2018 8:43 PM CDT us Notinfile Unknown LAB POCT ORDERABLES - DEVICE F inal Result Performing Organization Address City/[facility]/ZIP Co de Phone Number TOMY SAHU (CONWAY) 1 [facility] [place] [address] documented in this encounter Visit Diagnoses Diagnosis Uncontrolled type 1 diabetes mellitus with hyperglycemia (HCC)- Primary Nausea and vomiting, intractability of vomiting not specified, unspecified vomiting type Type 1 diabetes mellitus with hyperglycemia (HCC) Sinus tachycardia Other specified cardiac dysrhythmias Nausea and vomiting Nausea with vomiting Dehydration Metabolic alkalosis Alkalosis Ketonuria Acetonuria Thrombocytosis Essential thrombocythemia Type 1 diabetes mellitus with hyperglycemia (HCC) documented in this encounter Admitting Diagnoses Diagnosis Nausea and vomiting Nausea with vomiting documented in this encounter Administered Medications Inactive Administered Medications - up to 3 most recent administrations Medication Order MAR Action Action Date Dose Rate Site aluminum & magnesium wkyguoona-ftluxufowig-nviz enhydramine-lidocaine (MAGIC MOUTHWASH) suspension 1-1-1 10 mL, swish & swallow, 4 times daily, First dose on 01/03/18 at 1400, For 3 days Given 01/03/2018 1:20 PM CDT 10 mL dextrose (D10W) 10% bolus 250 mL 250 mL, intravenous, at 1,000 mL/hr, Administer over 15 Minutes, Every 15 min PRN, blood glucose less than 70 mg/dL and unable to swallow/take PO glucose/juice, Starting on Wed01/02/18 at 1442, Indications: HypoglycemiaIndications:Hy poglycemia dextrose (D10W) 10% bolus 250 mL 250 mL, intravenous, at 62.5 mL/hr, Administer over 4 Hours, Every 4 hours PRN, when tube feedings are held or interrupted AND patient is receiving basal insulin (Lantus, Levemir, NPH), Starting on Willow 01/02/18 at 1442, To cover glucose from tube feeds, infuse over 4 hours. NOTE: administer D10 250ml IV at TUBE FEEDING ADMINISTRATION RATE and notify MD promptly to re-evaluate patient's BG status and insulin therapy. Discontinue D10 infusion when tube feedings are reinitiated or per MDs instruction. Continuation of this D10W order beyond the initial 250ml requires ongoing MD approval and patient evaluation., Indications: HypoglycemiaIndications:Hy poglycemia dextrose 50% (concentrated solution) CONCENTRATED solution 25 g 25 g, intravenous, Every 15 min PRN, low blood sugar, blood glucose less than 50 mg/dL AND decreased level of consciousness, Starting on Willow 01/02/18 at 1442, Give IV Push over 2 minutes., Indications: HypoglycemiaIndications:Hy poglycemia dextrose gel in packet 15 g 15 g, oral, Every 15 min PRN, low blood sugar, blood glucose less than 70 mg/dL, Starting on Willow 01/02/18 at 1442, If patient is alert and able to eat/drink, give 15 gram glucose or one juice (4 fluid ounces) NOT ORANGE JUICE, Indications: HypoglycemiaIndications:Hy poglycemia enoxaparin (LOVENOX) syringe 40 mg 40 mg, subcutaneous, Daily (for enoxaparin), First dose on Wed01/03/18 at 2100, Indications: VTE ProphylaxisIndications:VTE Prophylaxis Given 01/03/2018 8:28 PM CDT 40 mg Left Lower Abdomen famotidine (PEPCID) injection 20 mg 20 mg, intravenous, Administer over 2 Minutes, 2 times daily, First dose on Wed01/02/18 at 0900, Medication, pantoprazole, changed from PPI to H2 antagonist (famotidine) per protocol for stress ulcer prophylaxis Given 01/04/2018 8:03 AM CDT 20 mg Given 01/03/2018 8:25 PM CDT 20 mg Given 01/03/2018 8:18 AM CDT 20 mg glucagon injection 1 mg 1 mg, intramuscular, Every 30 min PRN, low blood sugar, blood glucose less than 70 mg/dL and no IV access and unable to take PO glucose/juice, Starting on 01/02/18 at 1442, Follow glucagon treatment with glucose treatment or IV dextrose as appropriate based on clinical status., Indications: HypoglycemiaIndications:Hypog lycemia insulin glargine (LANTUS,BASAGLAR) pen injection 12 Units 12 Units, subcutaneous, Nightly, First dose (after last modification) on 01/02/18 at 0315, Do not mix with other insulins, Indications: Diabetes MellitusIndications:Diabetes Mellitus Given 01/02/2018 2:42 AM CDT 12 Units Right Upper Arm insulin glargine (LANTUS,BASAGLAR) pen injection 12 Units 12 Units, subcutaneous, Nightly, First dose (after last modification) on 01/03/18 at 2100, Do not mix with other insulins, Indications: Diabetes MellitusIndications:Diabetes Mellitus Given 01/03/2018 9:00 PM CDT 12 Units Left Upper Arm insulin glargine (LANTUS,BASAGLAR) pen injection 15 Units 15 Units, subcutaneous, Nightly, First dose (after last modification) on 01/02/18 at 2100, Do not mix with other insulins, Indications: Diabetes MellitusIndications:Diabetes Mellitus Given 01/02/2018 9:33 PM CDT 15 Units Right Upper Abdomen insulin lispro (HumaLOG) pen injection 1-2 Units 1-2 Units, subcutaneous, Every 4 hours scheduled, First dose on 01/02/18 at 0200, Blood Sugar Low Dose NPO patients 200 or less No Insulin 201 - 250 1 unit 251 - 299 2 units Greater than 299 Call MD for hyperglycemia management instructions Do NOT hold for NPO status., Indications: Diabetes MellitusIndications:Diabetes Mellitus Given 01/02/2018 2:43 AM CDT 2 Units Right Upper Arm insulin lispro (HumaLOG) pen injection 1-2 Units 1-2 Units, subcutaneous, Nightly, First dose on 01/02/18 at 2100, Blood Sugar Low Dose PM - PO patients 200 or less No Insulin 201 - 250 1 unit 251 - 299 2 units Greater than 299 Call MD for hyperglycemia management instructions Do NOT hold for NPO status., Indications: Diabetes MellitusIndications:Diabetes Mellitus insulin lispro (HumaLOG) pen injection 1-3 Units 1-3 Units, subcutaneous, 3 times daily with meals, First dose on 01/02/18 at 1800, Blood Sugar Low Dose meal time - PO patients 175 or less No Insulin 176 - 200 1 unit 201 - 250 2 units 251 - 299 3 units Greater than 299 Call MD for hyperglycemia management instructions Do NOT hold for NPO status., Indications: Diabetes MellitusIndications:Diabetes Mellitus Given 01/04/2018 11:59 AM CDT 2 Units Right Upper Arm Given 01/03/2018 12:11 PM CDT 1 Units L eft Upper Arm Given 01/02/2018 4:51 PM CDT 2 Units Ri ght Upper Arm insulin lispro (HumaLOG) pen injection 10 Units 10 Units, subcutaneous, Once, On 01/02/18 at 0315, For 1 dose, Administer pre-meal doses when pts food tray arrives in room. Do not administer pre-meal doses to NPO patients. Given 01/02/2018 2:42 AM CDT 10 Units Righ t Upper Arm insulin lispro (HumaLOG) pen injection 4 Units 4 Units, subcutaneous, 3 times daily with meals, First dose on 01/02/18 at 1800, Administer pre-meal doses when pts food tray arrives in room. Do not administer pre-meal doses to NPO patients. Given 01/04/2018 11:59 AM CDT 4 Units Right Upper Arm Given 01/03/2018 12:12 PM CDT 4 Units L eft Upper Arm Given 01/02/2018 4:51 PM CDT 4 Units Ri ght Upper Arm Lactated Ringer's (LR) infusion 75 mL/hr, intravenous, Continuous, Starting on 01/02/18 at 0215 New Bag 01/03/2018 8:16 AM CDT 75 mL/hr 75 mL/hr New Bag 01/02/2018 6:48 PM CDT 75 mL/hr 75 mL/hr Rate/Dose Change 01/02/2018 1:40 PM CDT 75 mL/hr 75 mL/h r metoclopramide (REGLAN) injection 5 mg 5 mg (0.105 mg/kg), intravenous, Once, On 01/01/18 at 2210, For 1 dose Given 01/01/2018 10:20 PM CDT 5 mg metoclopramide (REGLAN) injection 5 mg 5 mg (0.105 mg/kg), intravenous, Every 8 hours scheduled, First dose on Wed01/02/18 at 0130 Given 01/04/2018 5:42 AM CDT 5 mg Given 01/03/2018 8:25 PM CDT 5 mg Given 01/03/2018 1:20 PM CDT 5 mg metoprolol (LOPRESSOR) injection 5 mg 5 mg, intravenous, Once, On 01/03/18 at 1915, For 1 dose Given 01/03/2018 6:44 PM CDT 5 mg ondansetron (ZOFRAN) injection 4 mg 4 mg, intravenous, Once, On 01/01/18 at 2035, For 1 dose, Indications: Nausea, VomitingIndications:Nausea,Vomiting Given 01/01/2018 9:02 PM CDT 4 mg sertraline (ZOLOFT) tablet 50 mg 50 mg, oral, Daily, First dose on Wed01/02/18 at 1600 Given 01/04/2018 8:03 AM CDT 50 mg Given 01/02/2018 4:50 PM CDT 50 mg sodium chloride 0.9% bolus 1,000 mL 1,000 mL, intravenous, at 1,000 mL/hr, Administer over 1 Hours, Once, On 01/01/18 at 2035, For 1 dose New Bag 01/01/2018 9:02 PM CDT 1,000 mL 1000 mL/hr sodium chloride 0.9% infusion 75 mL/hr, intravenous, Continuous, Starting on 01/03/18 at 1330, For 48 hours New Bag 01/04/2018 5:42 AM CDT 75 mL/hr 75 mL/hr New Bag 01/03/2018 1:20 PM CDT 75 mL/hr 75 mL/hr documented in this encounter Discontinued Medications Medication Sig Discontinue Reason Start Date End Da te potassium chloride in 0.9%NaCl (SODIUM CHLORIDE 0.9% WITH POTASSIUM CHLORIDE 20 MEQ/L) 20 mEq/L Infuse 125 mL/hr into a venous catheter continuously. Discontinued by another clinician 12/09/2017 01/02/2018 sodium chloride 0.9% parenteral solution 99 mL with insulin regular 100 unit/mL solution 100 UnitsIndications:diabet ic ketoacidosis Infuse 0-30 Units/hr into a venous catheter as directed. Discontinued by another clinician 12/09/2017 01/02/2018 enoxaparin (LOVENOX) 40 mg/0.4 mL syringeIndications:Deep Vein Thrombosis Prevention Inject 0.4 mL (40 mg total) under the skin daily. Discontinued by another clinician 12/09/2017 01/02/2018 famotidine (PEPCID) 20 mg tablet Take 1 tablet (20 mg total) by mouth daily. Discontinued by another clinician 12/10/2017 01/02/2018 glucagon 1 mg kitIndications:Hypoglyc emia Inject 1 mL (1 mg total) into the muscle as instructed every 30 (thirty) minutes as needed (blood glucose less than 70 mg/dL and no IV access and unable to take PO glucose/juice). Discontinued by another clinician 12/09/2017 01/02/2018 ondansetron (ZOFRAN) 4 mg/2 mL injectionIndications:Na usea and Vomiting Infuse 2 mL (4 mg total) into a venous catheter every 6 (six) hours as needed for nausea or vomiting (if not tolerating PO). Discontinued by another clinician 12/09/2017 01/02/2018 ondansetron ODT (ZOFRAN-ODT) 4 mg disintegrating tabletIndications:Nause a and Vomiting Take 1 tablet (4 mg total) by mouth every 6 (six) hours as needed for nausea or vomiting. Discontinued by another clinician 12/09/2017 01/02/2018 dextrose (D10W) 10% bolusIndications:Hypogl ycemia Infuse 250 mL into a venous catheter every 15 (fifteen) minutes as needed (blood glucose less than 70 mg/dL and unable to swallow/take PO glucose/juice). Discontinued by another clinician 12/09/2017 01/02/2018 dextrose (D10W) 10% bolusIndications:Hypogl ycemia Infuse 250 mL into a venous catheter every 4 (four) hours as needed (when tube feedings are held or interrupted AND patient is receiving basal insulin (Lantus, Levemir, NPH)). Discontinued by another clinician 12/09/2017 01/02/2018 dextrose 15 gram/32 mL gel in packetIndications:Hypog lycemia Take 32 mL (15 g total) by mouth every 15 (fifteen) minutes as needed (blood glucose less than 70 mg/dL). Discontinued by another clinician 12/09/2017 01/02/2018 dextrose 5% solution Infuse 100 mL/hr into a venous catheter continuously. Discontinued by another clinician 12/09/2017 01/02/2018 dextrose 50% (concentrated solution) solutionIndications:Hyp oglycemia Infuse 50 mL (25 g total) into a venous catheter every 15 (fifteen) minutes as needed for low blood sugar (blood glucose less than 50 mg/dL AND decreased level of consciousness). Discontinued by another clinician 12/09/2017 01/02/2018 insulin glargine (LANTUS,BASAGLAR) 100 unit/mL (3 mL) insulin penIndications:type 1 diabetes mellitus Inject 15 Units under the skin daily. 01/04/2018 documented as of this encounter Historical Medications * This list may reflect changes made after this encounter. insulin lispro (HumaLOG) 100 unit/mL injectionIndicati ons:type 1 diabetes mellitus Inject 1 Units under the skin 3 (three) times a day before meals. Carb ratio 1 unit of humalog per 8 carbs with meals. 10/07/2018 insulin glargine (LANTUS,BASAGLAR) 100 unit/mL (3 mL) insulin penIndications:ty pe 1 diabetes mellitus Inject 15 Units under the skin daily. 01/04/2018 added in this encounter Active and Recently Administered Medications Times are shown in CDT. Scheduled Medication Order 01/02/2018 01/03/2018 01/04/2018 aluminum & magnesium wesbnflwy-ayjcglreclr-mv phenhydramine-lidocaine (MAGIC MOUTHWASH) suspension 1-1-1 (CANCELED) 10 mL, swish & swallow, 4 times daily, First dose on Wed01/03/18 at 1400, For 3 days 1320 (Given - Provider: Yoli Scott, MARY) enoxaparin (LOVENOX) syringe 40 mg 40 mg, subcutaneous, Daily (for enoxaparin), First dose on Wed01/03/18 at 2100, Indications: VTE Prophylaxis 2027 (Given - Provider: June Coffey, MARY) famotidine (PEPCID) injection 20 mg 20 mg, intravenous, Administer over 2 Minutes, 2 times daily, First dose on Wed01/02/18 at 0900, Medication, pantoprazole, changed from PPI to H2 antagonist (famotidine) per protocol for stress ulcer prophylaxis 08 (Given - Provider: Michelle Reeves, MARY)2132 (Given - Provider: Kim Daley RN) 817 (Given - Provider: Yoli Scott RN)2024 (Given - Provider: June Coffey RN) 08 (Given - Provider: Srinath Kong RN) insulin glargine (LANTUS,BASAGLAR) pen injection 12 Units (CANCELED) 12 Units, subcutaneous, Nightly, First dose (after last modification) on 01/02/18 at 0315, Do not mix with other insulins, Indications: Diabetes Mellitus 024 (Given - Provider: Kim Daley RN) insulin glargine (LANTUS,BASAGLAR) pen injection 12 Units 12 Units, subcutaneous, Nightly, First dose (after last modification) on Wed01/03/18 at 2100, Do not mix with other insulins, Indications: Diabetes Mellitus 2099 (Given - Provider: June Coffey, MARY) insulin glargine (LANTUS,BASAGLAR) pen injection 15 Units (CANCELED) 15 Units, subcutaneous, Nightly, First dose (after last modification) on 01/02/18 at 2100, Do not mix with other insulins, Indications: Diabetes Mellitus 2132 (Given - Provider: Kim Daley RN) insulin lispro (HumaLOG) pen injection 1-2 Units (CANCELED) 1-2 Units, subcutaneous, Every 4 hours scheduled, First dose on 01/02/18 at 0200, Blood Sugar Low Dose NPO patients 200 or less No Insulin 201 - 250 1 unit 251 - 299 2 units Greater than 299 Call MD for hyperglycemia management instructions Do NOT hold for NPO status., Indications: Diabetes Mellitus 0243 (Given - Provider: Kim Daley RN)08 (Not Given - Provider: Michelle Reeves, MARY - Reason: Contraindicated)112 (Not Given - Provider: Michelle Reeves RN - Reason: Contraindicated) insulin lispro (HumaLOG) pen injection 1-2 Units 1-2 Units, subcutaneous, Nightly, First dose on 01/02/18 at 2100, Blood Sugar Low Dose PM - PO patients 200 or less No Insulin 201 - 250 1 unit 251 - 299 2 units Greater than 299 Call MD for hyperglycemia management instructions Do NOT hold for NPO status., Indications: Diabetes Mellitus 2126 (Not Given - Provider: Kim Daley RN - Reason: Order parameters not met) 2055 (Not Given - Provider: June Coffey RN - Reason: Contraindicated) insulin lispro (HumaLOG) pen injection 1-3 Units 1-3 Units, subcutaneous, 3 times daily with meals, First dose on 01/02/18 at 1800, Blood Sugar Low Dose meal time - PO patients 175 or less No Insulin 176 - 200 1 unit 201 - 250 2 units 251 - 299 3 units Greater than 299 Call MD for hyperglycemia management instructions Do NOT hold for NPO status., Indications: Diabetes Mellitus 165 (Given - Provider: Michelle Reeves RN) 0817 (Not Given - Provider: Yoli Scott RN - Reason: Order parameters not met)1211 (Given - Provider: Yoli Scott RN)1707 (Not Given - Provider: Yoli Scott RN - Reason: Order parameters not met) 0804 (Not Given - Provider: Srinath Kong RN - Reason: Order parameters not met)1159 (Given - Provider: Srinath Kong RN) insulin lispro (HumaLOG) pen injection 10 Units (COMPLETED) 10 Units, subcutaneous, Once, On 01/02/18 at 0315, For 1 dose, Administer pre-meal doses when pts food tray arrives in room. Do not administer pre-meal doses to NPO patients. 0242 (Given - Provider: Kim Daley RN) insulin lispro (HumaLOG) pen injection 4 Units 4 Units, subcutaneous, 3 times daily with meals, First dose on 01/02/18 at 1800, Administer pre-meal doses when pts food tray arrives in room. Do not administer pre-meal doses to NPO patients. 1651 (Given - Provider: Michelle Reeves RN) 0817 (Not Given - Provider: Yoli Scott RN - Reason: Patient/family refused)1212 (Given - Provider: Yoli Scott RN)1708 (Not Given - Provider: Yoli Scott RN - Reason: Patient/family refused) 0807 (Not Given - Provider: Srinath Kong RN - Reason: Other - Comment: no appettite)1159 (Given - Provider: Srinath oKng, MARY) metoclopramide (REGLAN) injection 5 mg 5 mg (0.105 mg/kg), intravenous, Every 8 hours scheduled, First dose on 01/02/18 at 0130 0147 (Given - Provider: Kim Daley RN)0533 (Not Given - Provider: Kim Daley RN - Reason: Other - Comment: too close to prev dose)1325 (Given - Provider: Michelle Reeves, MARY)2134 (Not Given - Provider: Kim Daley RN - Reason: Patient/family refused) 0536 (Not Given - Provider: Kim Daley RN - Reason: Patient/family refused)1320 (Given - Provider: Yoli Scott RN)2025 (Given - Provider: June Coffey, MARY) 0542 (Given - Provider: June Coffey, MARY)1436 (Not Given - Provider: Srinath Kong RN - Reason: Patient/family refused) metoprolol (LOPRESSOR) injection 5 mg (COMPLETED) 5 mg, intravenous, Once, On Wed01/03/18 at 1915, For 1 dose 1844 (Given - Provider: Yoli Scott RN) sertraline (ZOLOFT) tablet 50 mg 50 mg, oral, Daily, First dose on 01/02/18 at 1600 1650 (Given - Provider: Michelle Reeves, MARY) 0818 (Not Given - Provider: Yoli Scott RN - Reason: Patient/family refused) 0803 (Given - Provider: Srinath Kong, MARY) sodium chloride 0.9% bolus 1,000 mL 1,000 mL, intravenous, at 1,000 mL/hr, Administer over 1 Hours, Once, On 01/02/18 at 0215, For 1 dose 0146 (Stopped - Provider: Kim Daley, MARY) Continuous Medication Order 01/02/2018 01/03/2018 01/04/2018 Lactated Ringer's (LR) infusion (CANCELED) 75 mL/hr, intravenous, Continuous, Starting on 01/02/18 at 0215 0245 (New Bag - Provider: Kim Daley RN)[id number] (Rate/Dose Change - Provider: Kim Daley RN)0952 (Stopped - Provider: Michelle Reeves RN)0953 (New Bag - Provider: Michelle Reeves RN)[id number] (Rate/Dose Change - Provider: Michelle Reeves RN)[phone] (Stopped - Provider: Michelle Reeves RN)1848 (New Bag - Provider: Michelle Reeves RN) 0816 (New Bag - Provider: Yoli Scott RN)1151 (Stopped - Provider: Yoli Scott RN) sodium chloride 0.9% infusion 75 mL/hr, intravenous, Continuous, Starting on 01/03/18 at 1330, For 48 hours 1320 (New Bag - Provider: Yoli Scott RN) 0542 (New Bag - Provider: June Coffey RN) PRN Medication Order 01/02/2018 01/03/2018 01/04/2018 dextrose (D10W) 10% bolus 250 mL 250 mL, intravenous, at 1,000 mL/hr, Administer over 15 Minutes, Every 15 min PRN, blood glucose less than 70 mg/dL and unable to swallow/take PO glucose/juice, Starting on 01/02/18 at 1442, Indications: Hypoglycemia dextrose (D10W) 10% bolus 250 mL 250 mL, intravenous, at 62.5 mL/hr, Administer over 4 Hours, Every 4 hours PRN, when tube feedings are held or interrupted AND patient is receiving basal insulin (Lantus, Levemir, NPH), Starting on 01/02/18 at 1442, To cover glucose from tube feeds, infuse over 4 hours. NOTE: administer D10 250ml IV at TUBE FEEDING ADMINISTRATION RATE and notify MD promptly to re-evaluate patient's BG status and insulin therapy. Discontinue D10 infusion when tube feedings are reinitiated or per MDs instruction. Continuation of this D10W order beyond the initial 250ml requires ongoing MD approval and patient evaluation., Indications: Hypoglycemia dextrose 50% (concentrated solution) CONCENTRATED solution 25 g 25 g, intravenous, Every 15 min PRN, low blood sugar, blood glucose less than 50 mg/dL AND decreased level of consciousness, Starting on Wed01/02/18 at 0055, Give IV Push over 2 minutes., Indications: Hypoglycemia dextrose 50% (concentrated solution) CONCENTRATED solution 25 g 25 g, intravenous, Every 15 min PRN, low blood sugar, blood glucose less than 50 mg/dL AND decreased level of consciousness, Starting on 01/02/18 at 1442, Give IV Push over 2 minutes., Indications: Hypoglycemia dextrose gel in packet 15 g 15 g, oral, Every 15 min PRN, low blood sugar, blood glucose less than 70 mg/dL, Starting on 01/02/18 at 1442, If patient is alert and able to eat/drink, give 15 gram glucose or one juice (4 fluid ounces) NOT ORANGE JUICE, Indications: Hypoglycemia docusate sodium (COLACE) capsule 100 mg 100 mg, oral, 2 times daily PRN, constipation, Starting on Wed01/02/18 at 0138, Indications: constipation glucagon injection 1 mg 1 mg, intramuscular, Every 30 min PRN, low blood sugar, blood glucose less than 70 mg/dL and no IV access and unable to take PO glucose/juice, Starting on 01/02/18 at 1442, Follow glucagon treatment with glucose treatment or IV dextrose as appropriate based on clinical status., Indications: Hypoglycemia ondansetron (ZOFRAN) injection 4 mg 4 mg (0.084 mg/kg), intravenous, Every 6 hours PRN, nausea, vomiting, Starting on 01/02/18 at 0055 documented in this encounter Orders Medications Ordered That Evan ht Not Have Been Administered Count Last Ordered Date First Ordered Date dextrose (D10W) 10% bolus 250 mL 4 01/03/20 dextrose 5% and sodium chlor leydi 0.9% infusion 1 01/02/2018 dextrose 50% (concentrated s olution) CONCENTRATED solution 25 g 2 01/02/2018 dextrose gel in packet 15 g 2 01/02/2018 docusate sodium (COLACE) capsule 100 mg 1 0 01/02/2018 glucagon injection 1 mg 2 01/02/2018 insulin glargine (LANTUS,BAS AGLAR) pen injection 12 Units 1 01/02/2018 insulin lispro (HumaLOG) pen injection 1-2 Units 1 01/02/2018 ondansetron (ZOFRAN) injection 4 mg 1 01/02 pantoprazole (PROTONIX) injection 40 mg 1 0 01/02/2018 sodium chloride 0.9% bolus 1,000 mL 2 01/02 Lab Orders Without Results Count Last Ordered D ate First Ordered Date POCT GLUCOSE DEVICE 4 01/03/2018 01/02/20 18 Diet Count Last Ordered Date First Orde red Date ADULT DISCHARGE DIET 1 01/04/2018 Nursing Count Last Ordered Date First Orde red Date DISCHARGE ACTIVITY 1 01/04/2018 DISCHARGE INSTRUCTIONS 1 01/04/2018 FOLLOW UP PRIMARY PHYSICIAN 1 01/04/2018 CARDIO RESPIRATORY MONITORING 1 01/01/2018 CONTINUOUS PULSE OXIMETRY 1 01/01/2018 IV Count Last Ordered Date First Orde red Date SALINE LOCK IV 1 01/01/2018 Admission Count Last Ordered Date First Orde red Date ASSIGN PATIENT STATUS 1 01/01/2018 CORE MEASURES Count Last Ordered Date First Ord ered Date REASON FOR NO VTE PROPHYLAXIS AT ADMISSION 2 01/02/2018 ADT Patient Update Count Last Ordered Date Firs t Ordered Date ED IP DECISION TO ADMIT 1 01/01/2018 documented in this encounter 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
--- OUTSIDE RECORDS SUMMARY | 2024-05-10 18:42 | XMS_ITS | Encounter Summary ---
Author Organization [facility] Healthcare Address [address] [place] [address] Care Team Providers Care Lead Javascript Engineer Name Role Phone No, Physician Primary Care Provider [phone] Reason for Visit * Reason Comments Vomiting Encounter Details Date Type Department Care Team (Latest Contact Info) Description 03/29/2018 5:01 PM TAG CLERK - 04/01/2018 5:03 PM TAG CLERK Hospital Encounter [facility] IMU [address] [place] [address] Boubacar Harrison MD [address] [place] [address] Ayana Prado MD [address] [place] [address] Pamela Pires MD [address] [facility] [address] [address] Dehydration (Primary Dx); Hyperglycemia; Sinus tachycardia Discharge Disposition: Discharge to home or self care Social History Tobacco Use Types Packs/Day Years Used Date Smoking Tobacco: Never Smokeless Tobacco: Never Alcohol Use Standard Drinks/Week Comments Not Asked 0 (1 standard drink = 0.6 oz pur e alcohol) Comments No Sex and Gender Information Value Date Recorded Sex Assigned at Not on file Legal Sex Female 3:13 AM TAG CLERK Gender Identity Not on file Sexual Orientation Not on file documented as of this encounter Last Filed Vital Signs Vital Sign Reading Time Taken Comments Blood Pressure 114/70 04/01/2018 3:19 PM TAG CLERK Pulse 88 04/01/2018 3:19 PM TAG CLERK Temperature 36.2 ??C (97.2 ??F) 04/01/2018 3:19 PM CS T Respiratory Rate 20 04/01/2018 3:19 PM TAG CLERK Oxygen Saturation 98% 04/01/2018 3:19 PM TAG CLERK Inhaled Oxygen Concentration - - Weight 53 kg (116 lb 13.5 oz) 03/31/2018 9:47 AM TAG CLERK Height 154.9 cm (5' 0.98 ) 03/30/2018 2:40 PM CS T Body Mass Index 22.09 03/30/2018 2:40 PM TAG CLERK documented in this encounter Discharge Summaries * Pamela Pires MD - 04/01/2018 3:51 PM CST Inpatient Discharge Summary BRIEF OVERVIEW Admitting Provider: Ayana Prado MD Discharge Provider: Pamela Pires MD Primary Care Physician at Discharge: Physician No None Admission Date: 03/29/2018 Discharge Date: 04/01/2018 Primary Discharge Diagnosis: diabetes : uncontrolled Gastroenteritis DETAILS OF HOSPITAL STAY Presenting Problem/History of Present Illness: Patient is a 22 y.o. female with a PMHx significant for diabetes presents to the ED with a chief complaint of nausea, vomiting since yesterday as per the patient.Please refer to H&P for further details Hospital Course: 1. Possible gastroenteritis : Improving : patient on supportive treatment with IV fluids and Zofranfor nausea ?? 2. Diabetes : uncontrolled: Sugars are better controlled on insulin regimen during the hospital stay. Patient was advised to check sugars at least 3 times a day and take the log of readings to primary care physician ?? 3. Leukocytosis likely reactive : resolved : UA negative. Test Results Pending at Discharge: none Operative Procedures Performed: none Other Procedures: none Pertinent Test Results: Discharge Details Physical Exam at Discharge: Discharge Condition: stable Pulse: 88 Resp: 20 BP: 114/70 Temp: 36.2 ??C (97.2 ??F) Weight: 53 kg (116 lb 13.5 oz) BP 114/70 (BP Location: Right arm, Patient Position: Sitting) Pulse 88 Temp 36.2 ??C (97.2 ??F)(Tympanic) Resp 20 Ht 154.9 cm (5' 0.98 ) Wt 53 kg (116 lb 13.5 oz) LMP 03/28/2018 SpO2 98% ? No BMI 22.09 kg/m?? Pertinent Exam Findings at Discharge: General [...] past 24 hour(s)) POCT glucose Collection Time: 03/31/18 4:24 PM Result Value Ref Range Glucose, POC, bld 162 (H) 71 - 98 mg/dL POCT glucose Collection Time: 03/31/18 8:47 PM Result Value Ref Range Glucose, POC, bld 122 (H) 71 - 98 mg/dL POCT glucose Collection Time: 04/01/18 2:16 AM Result Value Ref Range Glucose, POC, bld 146 (H) 71 - 98 mg/dL POCT glucose Collection Time: 04/01/18 7:44 AM Result Value Ref Range Glucose, POC, bld 218 (H) 71 - 98 mg/dL POCT glucose Collection Time: 04/01/18 11:23 AM Result Value Ref Range Glucose, POC, bld 205 (H) 71 - 98 mg/dL Discharge Disposition: Discharge to home or self care Full Code Discharge Instructions: Activity Instructions Discharge activity: Resume normal activity Diet Instructions Adult Discharge Diet Diet Type: Return to previous diet Other (specify) Explanatory Comment: Diabetic diet Other Instructions Special Instructions Special Instructions Discharge Medications: Your medication list CONTINUE taking these medications insulin glargine 100 unit/mL (3 mL) insulin pen Commonly known as: LANTUS,BASAGLAR Inject 10 Units under the skin daily. insulin lispro 100 unit/mL injection Commonly known as: HumaLOG metoclopramide 5 mg tablet Commonly known as: REGLAN Take 1 tablet (5 mg total) by mouth every 8 (eight) hours as needed (nausea). ondansetron ODT 4 mg disintegrating tablet Commonly known as: ZOFRAN-ODT sertraline 50 mg tablet Commonly known as: ZOLOFT Outpatient Follow-Up: No future appointments. Follow-up with primary care physician in 1 week Time Spent on Discharge:32 mins CLERK documented in this encounter Medications at Time [...] 12/31/2017 9 documented as of this encounter Discharge Disposition Disposition Code Departure Means Destination Discharge to home or self care documented in this encounter Progress Notes * Lynsey Hurtado - 04/01/2018 10:11 AM CST [facility] Nutrition Assessment NAME:Karina Fuchs :1995 AGE:22 y.o. SEX: female ADMISSION DATE:03/29/2018, CURRENT LOS is 2 days. ENCOUNTER DATE: 04/01/18 10:12 AM REASON for ASSESSMENT: Follow Up DX: DEHYDRATION Nutrition Screen What diet do you follow at home?: Diabetic Have You Recently Lost Weight Without Trying?: No Poor Oral Intake for Four or More Days Prior to Admission: No Current diet order: Adult Diet Regular Pt intake is inadequate. PO intakes: 0%, 0%, 25% ALLERGIES: Patient has no known allergies. ASPEN Malnutrition Assessment: Nutrition Focused Physical Exam Notes: Nutrition Needs Calculations: Calculated Energy Needs Using Equations Weight Used for Equation Calculations (RD Determined): 53 kg (116 lb 13.5 oz) Weight: 53 kg (116 lb 13.5 oz) Height: 154.9 cm (5' 0.98 ) [place] Equation: 1327 Equation Chosen to Use by RD: [place] Activity Factor: 1.1 Stress Factor: 1.2 Total Energy Needs: 1751.64 kcal Temp: 36.2 ??C (97.1 ??F) Total Energy Needs + Fever Factor: 1751.64 Estimated Protein Needs Type of Weight Used for Estimated Protein : Current Protein Needs Based on g/k.0 Total Protein Estimated Needs (gm): 53 Kcal/kg Type of Weight Used for Estimated Kcals: Current Kcal/k Total Kcal/kg Estimated Needs : 1855 Estimated Fluid Needs Type of Weight Used for Estimated Fluid Needs: Current Fluid Needs Based on : 1 ml/kcal Total Fluid Estimated Needs: 1855 Estimated needs: ?? Total Kcal/kg Estimated Needs : 1855 based on Kcal/k. Type of Weight Used for Estimated Kcals: Current ?? MSJ Total Energy Needs: 1751.64 kcal using Stress Factor: 1.2 ?? DEBORAH State Total Energy Needs + Fever Factor: 1751.64 ?? Total Protein Estimated Needs (gm): 53 Protein Needs Based on g/k.0 Type of Weight Used for Estimated Protein : Current. ?? Total Fluid Estimated Needs: 1855 Fluid Needs Based on : 1 ml/kcal. Objective Anthropometrics Weight: 53 kg (116 lb 13.5 oz) Admission Weight : 53 kg Weight Change: 0.00 kg (0.00 lbs) IBW/kg (Calculated) : 47.6 kg Height: 154.9 cm (5' 0.98 ) Weight in (lb) to have BMI = 25: 132 BMI (Calculated): 22.1 BMI Classification: BMI 18.5 - 24.9 Normal Weight 3 Day I/O Summary 03/30 190 - 04/01 0659 In: 770 [P.O.:770] Out: 1750 [Urine:1750] Temp: 36.2 ??C (97.1 ??F) [place] body weight: 47.8 kg (105 lb 4.8 oz) Adjusted ideal body weight: 49.9 kg (109 lb 14.7 oz) Past Medical History: Diagnosis Date ??? Depression ??? Diabetes mellitus (CMS/HCC) ??? HX OTHER MEDICAL 2011 Diabetes mellitus, type 1 Medications and Lab Review: Scheduled Meds: enoxaparin 40 mg subcutaneous Daily-2100 insulin lispro 5 Units subcutaneous TID with meals metoclopramide 10 mg intravenous Q8H BOB Continuous Infusions: Sodium Date Value Ref Range Status 03/31/2018 135 135 - 145 mmol/L Final Potassium, pl Date Value Ref Range Status 03/31/2018 3.6 3.3 - 4.9 mmol/L Final BUN Date Value Ref Range Status 03/31/2018 9 8 - 25 mg/dL Final Creatinine Date Value Ref Range Status 03/31/2018 0.34 (L) 0.60 - 1.10 mg/dL Final Albumin Date Value Ref Range Status 03/30/2018 3.5 3.5 - 5.0 g/dL Final Calcium Date Value Ref Range Status 03/31/2018 8.1 (L) 8.5 - 10.3 mg/dL Final Lab Results Component Value Date HGBA1C 8.7 (H) 02/08/2017 POC Glucose: 03/30/2018: 291,304,230,199,143,116,151 03/31/2018: 192,139,162,146 04/01/2018: 218 Nursing Assessment: Last BM Date: 03/29/18 Bowel Sounds (All Quadrants): Active Teodoro Scale Score: 21 Skin Integrity: Intact Nutrition Follow-Up : 04/06/18 notes pt likely has gastroenteritis and her nausea/vomiting is improving. BG improving overall. Intakes remain low. Follow at medium risk. Nutrition Diagnosis 1: Inadequate oral intake Related to: Vomiting, Loss of appetite, Nausea Evidenced by: PO under 50%, Physical finding ?? Interventions: [place] diet preferences within the limits of nutrition care order, Meals and snacks ?? Monitoring and Evaluation: Blood glucoses, Labs, PO intake ?? Goals: Adequate nutrition to meet estimated needs by next assessment ?? Recommendations: Monitor at medium risk d/t pt dx of gastroenteritis, improvement to intakes, BGreadings, nausea. FU per policy. Nutrition Diagnosis 2: Altered nutrition-related laboratory valuesRelated to: Physiologic issue (T1DM)Evidenced by: Lab abnormality (BG readings) ?? Interventions: [place]oden diet preferences within the limits of nutrition care order ?? Monitoring and Evaluation: Blood glucoses, PO intake, Labs ?? Goals: Oral intake to meet 75% estimated nutritional needs by next assessment ?? Nutritional Risk: medium Lynsey Hurtado RD LDN CLERK * Pamela Pires MD - 03/31/2018 3:25 PM CST Daily Progress Chief Complaint Patient presents with ??? Vomiting Subjective Nausea is slowly improving. Patient feels little better. No fever Objective Vitals: 24hr Min/Max: Temp Min: 35.8 ??C (96.4 ??F) Max: 36.8 ??C (98.3 ??F) Pulse Min: 87 Max: 123 BP Min: 98/56 Max: 139/90 Resp Min: 16 Max: 20 SpO2 Min: 98 % Max: 100 % Most Recent : Vitals: 03/31/18 1056 BP: 106/61 Pulse: 102 Resp: 20 Temp: (!) 35.8 ??C (96.4 ??F) SpO2: 98% I/O last 2 completed shifts: In: 2420 [P.O.:420; I.V.:2000] Out: - No intake/output data recorded. Physical Exam: General appearance: awake and alert Head and ENT : no pallor or icterus Lungs: clear to auscultation bilaterally Heart: S1, S2 Stevens Abdomen: soft, non-tender; bowel sounds normal; Extremities: no edema, redness or tenderness in the calves Neurologic: Alert and oriented X 3, Psych : pleasant and cooperative Current Facility-Administered Medications: ??? acetaminophen (TYLENOL) tablet 650 mg, 650 mg, oral, Q4H PRN ??? dextrose gel in packet 15 g, 15 g, oral, Q15 Min PRN OR dextrose (D10W) 10% bolus 250 mL, 250 mL, intravenous, Q15 Min PRN OR dextrose 50% (concentrated solution) 50 % CONCENTRATED solution 25 g, 25 g, intravenous, Q15 Min PRN ??? enoxaparin (LOVENOX) syringe 40 mg, 40 mg, subcutaneous, Daily-2100, 40 mg at 03/30/182210 ??? glucagon injection 1 mg, 1 mg, intramuscular, Q30 Min PRN ??? insulin lispro (HumaLOG) pen injection 5 Units, 5 Units, subcutaneous, TID with meals, 5 Units at 03/31/18 1319 ??? metoclopramide (REGLAN) injection 10 mg, 10 mg, intravenous, Q8H BOB, 10 mg at 03/31/18 0526 ??? ondansetron (ZOFRAN) injection 4 mg, 4 mg, intravenous, Q6H PRN, 4 mg at 03/30/18 0105 ??? sodium chloride 0.9% infusion, 200 mL/hr, intravenous, Continuous, Last Rate: 200 mL/hr at 03/31/18 1022, 200 mL/hr at 03/31/18 1022 Lab/Radiology/Diagnostic Review: Laboratory review: Lab results in the last 24 hours: Recent Results (from the past 24 hour(s)) Basic metabolic panel Collection Time: 03/30/18 4:49 PM Result Value Ref Range Sodium 128 (L) 135 - 145 mmol/L Potassium, pl 3.9 3.3 - 4.9 mmol/L Chloride 98 97 - 110 mmol/L CO2 14 (L) 22 - 32 mmol/L Anion Gap 16 (H) 2 - 15 mmol/L BUN 11 8 - 25 mg/dL Creatinine 0.34 (L) 0.60 - 1.10 mg/dL Glucose 143 70 - 199 mg/dL Calcium 8.1 (L) 8.5 - 10.3 mg/dL eGFR Collection Time: 03/30/18 4:49 PM Result Value Ref Range GFR >60 mL/min/1.73 m2 POCT glucose Collection Time: 03/30/18 5:17 PM Result Value Ref Range Glucose, POC, bld 116 (H) 71 - 98 mg/dL POCT glucose Collection Time: 03/30/18 9:32 PM Result Value Ref Range Glucose, POC, bld 151 (H) 71 - 98 mg/dL Basic metabolic panel Collection Time: 03/31/18 8:40 AM Result Value Ref Range Sodium 135 135 - 145 mmol/L Potassium, pl 3.6 3.3 - 4.9 mmol/L Chloride 102 97 - 110 mmol/L CO2 15 (L) 22 - 32 mmol/L Anion Gap 18 (H) 2 - 15 mmol/L BUN 9 8 - 25 mg/dL Creatinine 0.34 (L) 0.60 - 1.10 mg/dL Glucose 192 70 - 199 mg/dL Calcium 8.1 (L) 8.5 - 10.3 mg/dL eGFR Collection Time: 03/31/18 8:40 AM Result Value Ref Range GFR >60 mL/min/1.73 m2 POCT glucose Collection Time: 03/31/18 11:34 AM Result Value Ref Range Glucose, POC, bld 139 (H) 71 - 98 mg/dL No results found. Patient Active Problem List Diagnosis ??? Acute gastroenteritis ??? Sinus tachycardia ??? Normocytic anemia ??? Diabetic ketoacidosis without coma associated with type 1 diabetes mellitus (CMS/HCC) ??? Nausea and vomiting ??? Dehydration ??? Metabolic alkalosis ??? Uncontrolled type 1 diabetes mellitus with hyperglycemia (CMS/HCC) ??? Ketonuria ??? Thrombocytosis (CMS/HCC) ??? Type 1 diabetes mellitus with hyperglycemia (CMS/HCC) ASSESSMENT/PLAN 1. Possible gastroenteritis : Improving : patient on supportive treatment with IV fluids and Zofranfor nausea 2. Diabetes : Sugars are better on present insulin regimen, will monitor 3. GI and DVT prophylaxis 4. Leukocytosis likely reactive : Pending CBC. UA negative. CLERK CLERK * Lynsey Hurtado - 03/31/2018 9:51 AM CST [facility] Nutrition Assessment NAME:Karina Fuchs :1995 AGE:22 y.o. SEX: female ADMISSION DATE:03/29/2018, CURRENT LOS is 1 days. ENCOUNTER DATE: 03/31/18 9:52 AM REASON for ASSESSMENT: Initial Nutrition Assessment DX: DEHYDRATION T1 DM. PMH DKA Nutrition Screen What diet do you follow at home?: Diabetic Have You Recently Lost Weight Without Trying?: No Poor Oral Intake for Four or More Days Prior to Admission: No Current diet order: Adult Diet Clear Liquid Pt intake is inadequate. PO intakes: 0% intakes (pt refused) ALLERGIES: Patient has no known allergies. ASPEN Malnutrition Assessment: Nutrition Focused Physical Exam Notes: Nutrition Needs Calculations: Calculated Energy Needs Using Equations Weight Used for Equation Calculations (RD Determined): 53 kg (116 lb 13.5 oz) Weight: 53 kg (116 lb 13.5 oz) Height: 154.9 cm (5' 0.98 ) [place] Equation: 1327 Equation Chosen to Use by RD: [place] Activity Factor: 1.1 Stress Factor: 1.2 Total Energy Needs: 1751.64 kcal Temp: 36.1 ??C (96.9 ??F) Total Energy Needs + Fever Factor: 1751.64 Estimated Protein Needs Type of Weight Used for Estimated Protein : Current Protein Needs Based on g/k.0 Total Protein Estimated Needs (gm): 53 Kcal/kg Type of Weight Used for Estimated Kcals: Current Kcal/k Total Kcal/kg Estimated Needs : 1855 Estimated Fluid Needs Type of Weight Used for Estimated Fluid Needs: Current Fluid Needs Based on : 1 ml/kcal Total Fluid Estimated Needs: 1855 Estimated needs: ?? Total Kcal/kg Estimated Needs : 1855 based on Kcal/k. Type of Weight Used for Estimated Kcals: Current ?? MSJ Total Energy Needs: 1751.64 kcal using Stress Factor: 1.2 ?? DEB[place]AH State Total Energy Needs + Fever Factor: 1751.64 ?? Total Protein Estimated Needs (gm): 53 Protein Needs Based on g/k.0 Type of Weight Used for Estimated Protein : Current. ?? Total Fluid Estimated Needs: 1855 Fluid Needs Based on : 1 ml/kcal. Objective Anthropometrics Weight: 53 kg (116 lb 13.5 oz) Admission Weight : 53 kg Weight Change: 0.00 kg (0.00 lbs) IBW/kg (Calculated) : 47.6 kg Height: 154.9 cm (5' 0.98 ) Weight in (lb) to have BMI = 25: 132 BMI (Calculated): 22.1 BMI Classification: BMI 18.5 - 24.9 Normal Weight 3 Day I/O Summary 03/29 1900 - 03/31 0659 In: 4420 [P.O.:420; I.V.:2000] Out: 600 [Urine:600] Temp: 36.1 ??C (96.9 ??F) [place] body weight: 47.8 kg (105 lb 4.8 oz) Adjusted ideal body weight: 49.9 kg (109 lb 14.7 oz) Past Medical History: Diagnosis Date ??? Depression ??? Diabetes mellitus (CMS/HCC) ??? HX OTHER MEDICAL 2011 Diabetes mellitus, type 1 Medications and Lab Review: Scheduled Meds: enoxaparin 40 mg subcutaneous Daily-2100 insulin lispro 5 Units subcutaneous TID with meals metoclopramide 10 mg intravenous Q8H BOB Continuous Infusions: sodium chloride 0.9% 200 mL/hr Last Rate: 200 mL/hr (03/30/18 1349) Sodium Date Value Ref Range Status 03/31/2018 135 135 - 145 mmol/L Final Potassium, pl Date Value Ref Range Status 03/31/2018 3.6 3.3 - 4.9 mmol/L Final BUN Date Value Ref Range Status 03/31/2018 9 8 - 25 mg/dL Final Creatinine Date Value Ref Range Status 03/31/2018 0.34 (L) 0.60 - 1.10 mg/dL Final Albumin Date Value Ref Range Status 03/30/2018 3.5 3.5 - 5.0 g/dL Final Calcium Date Value Ref Range Status 03/31/2018 8.1 (L) 8.5 - 10.3 mg/dL Final Lab Results Component Value Date HGBA1C 8.7 (H) 02/08/2017 POC Glucose: 03/29/2018: 322,315,174 03/30/2018: 291,304,230,199,143,116,151 03/31/2018: 192 Nursing Assessment: Last BM Date: 03/29/18 Bowel Sounds (All Quadrants): Active Teodoro Scale Score: 21 Skin Integrity: Intact Nutrition Follow-Up : 04/01/18 Nutrition Diagnosis 1: Inadequate oral intake Related to: Vomiting, Loss of appetite, Nausea Evidenced by: PO under 50%, Physical finding ?? Interventions: [place] diet preferences within the limits of nutrition care order, Meals and snacks ?? Monitoring and Evaluation: Blood glucoses, Labs, PO intake ?? Goals: Adequate nutrition to meet estimated needs by next assessment ?? Recommendations: Monitor at high risk for inadequate PO intake, refusal of PO intake. Nutrition Diagnosis 2: Altered nutrition-related laboratory valuesRelated to: Physiologic issue (T1DM)Evidenced by: Lab abnormality (BG readings) ?? Interventions: [place] diet preferences within the limits of nutrition care order ?? Monitoring and Evaluation: Blood glucoses, PO intake, Labs ?? Goals: Oral intake to meet 75% estimated nutritional needs by next assessment ?? Nutritional Risk: high Lynsey Hurtado RD LDN CLERK documented in this encounter H&P Notes * Pamela Pires MD - 03/30/2018 2:53 PM CST History and Physical Date of Service: 03/30/2018 Primary Care Physician: Physician No None SUBJECTIVE: Nausea and vomiting HPI : Patient is a 22 y.o. female with a PMHx significant for diabetes presents to the ED with a chief complaint of nausea, vomiting since yesterday as per the patient. Patient denies any fever chills no cough no phlegm no shortness of breath denies any chest pain. Denies any diarrhea. Patient was admitted for further management. Started on fluids and subcu insulin was given. When I saw the patient she was complaining of nausea but no vomiting. Denies any pain Past Medical History: Diagnosis Date ??? Depression ??? Diabetes mellitus (CMS/HCC) ??? HX OTHER MEDICAL 2011 Diabetes mellitus, type 1 Past Surgical History: Procedure Laterality Date ??? ABDOMINAL SURGERY ??? SECTION, CLASSIC 2017 ??? TONSILLECTOMY Bilateral 2002 Prescriptions Prior to Admission Medication Sig Dispense Refill Last Dose ??? insulin glargine (LANTUS,BASAGLAR) 100 unit/mL (3 mL) insulin pen Inject 10 Units under the skin daily. 0 ??? insulin lispro (HumaLOG) 100 unit/mL injection Inject 1 Units under the skin 3 (three) times a day before meals. Carb ratio 1 unit of humalog per 8 carbs with meals. ??? metoclopramide (REGLAN) 5 mg tablet Take 1 tablet (5 mg total) by mouth every 8 (eight) hours as needed (nausea). 10 tablet 0 No Known Allergies Social History Substance Use Topics ??? Smoking status: Never Smoker ??? Smokeless tobacco: Never Used ??? Alcohol use Not on file Family history : Diabetes runs in the family Review of Systems: Review of Systems Ten systems reviewed Denies any headache or double vision or blurred vision. Denies any sore throat. Denies any chest pain or palpitation. Denies any shortness of breath. Denies any , diarrhea, constipation. Denies any dysuria, urgency, frequency. Denies any hemiplegia, hemiparesis. Denies any seizure. Denies any fever, chills. Denies any weight loss. OBJECTIVE: Vitals: Arrival Vitals Temp 03/29/18 1714 36.2 ??C (97.1 ??F) Pulse 03/29/18 1714 (!) 140 Resp 03/29/18 1714 24 BP 03/29/18 1714 (!) 150/101 SpO2 03/29/18 1714 99 % Temp src 03/29/18 1714 Temporal Heart Rate Source 03/30/18 1440 Monitor Patient Position 03/30/18 1440 Lying BP Location 03/30/18 1440 Right arm FiO2 (%) -- Most Recent : Vitals: 03/30/18 1200 03/30/18 1245 03/30/18 1429 03/30/18 1440 BP: 107/53 (!) 93/43 129/75 BP Location: Right arm Patient Position: Lying Pulse: 114 118 107 Resp: Temp: 36.7 ??C (98.1 ??F) 36.3 ??C (97.3 ??F) TempSrc: Oral Tympanic SpO2: 100% 98% 100% Weight: 53 kg (116 lb 13.5 oz) Height: 154.9 cm (5' 0.98 ) I/O last 2 completed shifts: In: 3000 [IV Piggyback:3000] Out: 600 [Urine:600] I/O this shift: In: 1999 [I.V.:1999] Out: - Physical Exam: Physical Exam General appearance: Alert, [...] Recent Results (from the past 24 hour(s)) Sepsis Lactate w/ Reflex Collection Time: 03/29/18 5:44 PM Result Value Ref Range Sepsis Lactate 2.2 (H) 0.7 - 2.0 mmol/L Blood gas, arterial Collection Time: 03/29/18 5:44 PM Result Value Ref Range pH, Art POC 7.52 (H) 7.35 - 7.45 PCO2, Arterial 25 (L) 35 - 45 mmHg PO2, Arterial 136 (H) 83 - 108 mmHg HCO3 Art (Calculated) 20 20 - 30 mmol/L BE, art -1 mmol/L O2 Sat Art (Measured) 100 (H) 90 - 95 % CBC with auto differential Collection Time: 03/29/18 5:52 PM Result Value Ref Range WBC 6.8 3.8 - 9.9 K/cumm Hgb 14.7 11.9 - 15.5 g/dL Hct 43.3 35.6 - 45.5 % Plt 409 (H) 150 - 400 K/cumm MPV 8.8 (L) 9.1 - 12.3 fL RBC 5.35 (H) 3.90 - 5.20 M/cumm MCV 80.9 (L) 81.3 - 96.4 fL MCH 27.5 27.1 - 33.3 pg MCHC 33.9 32.3 - 35.7 g/dL RDW CV 15.0 (H) 11.1 - 14.9 % RDW SD 43.8 35.7 - 48.1 fL NRBC Abs 0.00 0.00 - 0.01 K/cumm Comprehensive metabolic panel Collection Time: 03/29/18 5:52 PM Result Value Ref Range Sodium 135 135 - 145 mmol/L Potassium, pl 4.2 3.3 - 4.9 mmol/L Chloride 90 (L) 97 - 110 mmol/L CO2 23 22 - 32 mmol/L Anion Gap 22 (H) 2 - 15 mmol/L BUN 18 8 - 25 mg/dL Creatinine 0.44 (L) 0.60 - 1.10 mg/dL Glucose 360 (H) 70 - 199 mg/dL Calcium 9.8 8.5 - 10.3 mg/dL Bilirubin, total 0.4 0.1 - 1.2 mg/dL Protein, pl 7.8 6.5 - 8.5 g/dL Albumin 5.0 3.5 - 5.0 g/dL Alk phos 105 40 - 130 Units/L ALT 10 7 - 45 Units/L AST 12 10 - 45 Units/L POCT glucose Collection Time: 03/29/18 5:52 PM Result Value Ref Range Glucose, POC, bld 301 (Critical) 71 - 98 mg/dL Differential, auto Collection Time: 03/29/18 5:52 PM Result Value Ref Range Neutrophil absolute 5.8 1.7 - 6.5 K/cumm Immature granulocyte absolute 0.0 0.0 - 0.1 K/cumm Lymphocytes absolute 0.7 (L) 0.8 - 3.3 K/cumm Monocyte absolute 0.2 0.2 - 0.8 K/cumm Eosinophils absolute 0.0 0.0 - 0.5 K/cumm Basophils, abs 0.0 0.0 - 0.1 K/cumm Neutrophils 85.6 % Immature granulocytes 0.7 % Lymphocytes 10.2 % Monocytes 2.9 % Eosinophils 0.0 % Basophils 0.6 % eGFR Collection Time: 03/29/18 5:52 PM Result Value Ref Range GFR >60 mL/min/1.73 m2 Drug screen, urine Collection Time: 03/29/18 7:06 PM Result Value Ref Range Amphetamines, Class Negative Screen Negative Screen Barbiturates, Class Negative Screen Negative Screen Benzodiazepines Negative Screen Negative Screen Cannabinoids, Screen Negative Screen Negative Screen Cocaine metabolite Negative Screen Negative Screen Opiates, Class Negative Screen Negative Screen Phencyclidine, ur Negative Screen Negative Screen Urinalysis reflex to microscopic and culture Urine Collection Time: 03/29/18 7:07 PM Result Value Ref Range Color, ur Yellow Yellow Clarity, ur Clear Clear Specific gravity, ur >1.030 (H) 1.010 - 1.025 pH, urine 7.0 Protein, ur ql Negative Negative Glucose, ur ql 3+ (A) Negative Ketones, ur 3+ (A) Negative Bilirubin, ur Negative Negative Blood, ur Negative Negative Urobilinogen, ur 0.2 mg/dL Nitrite, ur Negative Negative Leukocyte esterase, ur Negative Negative hCG, urine, qualitative Collection Time: 03/29/18 7:07 PM Result Value Ref Range HCG, ur Negative Negative Sepsis Lactate w/ Reflex Collection Time: 03/29/18 7:49 PM Result Value Ref Range Sepsis Lactate 2.0 0.7 - 2.0 mmol/L POCT glucose Collection Time: 03/29/18 8:06 PM Result Value Ref Range Glucose, POC, bld 413 (Critical) 71 - 98 mg/dL Sepsis Lactate w/ Reflex Collection Time: 03/29/18 9:21 PM Result Value Ref Range Sepsis Lactate 2.4 (H) 0.7 - 2.0 mmol/L Sepsis Lactate w/ Reflex Collection Time: 03/29/18 11:20 PM Result Value Ref Range Sepsis Lactate 1.4 0.7 - 2.0 mmol/L POCT glucose Collection Time: 03/30/18 12:42 AM Result Value Ref Range Glucose, POC, bld 322 (Critical) 71 - 98 mg/dL Sepsis Lactate w/ Reflex Collection Time: 03/30/18 1:15 AM Result Value Ref Range Sepsis Lactate 2.6 (H) 0.7 - 2.0 mmol/L POCT glucose Collection Time: 03/30/18 2:55 AM Result Value Ref Range Glucose, POC, bld 315 (Critical) 71 - 98 mg/dL Sepsis Lactate w/ Reflex Collection Time: 03/30/18 5:56 AM Result Value Ref Range Sepsis Lactate 1.4 0.7 - 2.0 mmol/L POCT glucose Collection Time: 03/30/18 6:11 AM Result Value Ref Range Glucose, POC, bld 174 (H) 71 - 98 mg/dL Sepsis Lactate w/ Reflex Collection Time: 03/30/18 8:10 AM Result Value Ref Range Sepsis Lactate 1.4 0.7 - 2.0 mmol/L CBC with auto differential Collection Time: 03/30/18 8:10 AM Result Value Ref Range WBC 15.2 (H) 3.8 - 9.9 K/cumm Hgb 11.0 (L) 11.9 - 15.5 g/dL Hct 34.0 (L) 35.6 - 45.5 % Plt 356 150 - 400 K/cumm MPV 9.2 9.1 - 12.3 fL RBC 3.92 3.90 - 5.20 M/cumm MCV 86.7 81.3 - 96.4 fL MCH 28.1 27.1 - 33.3 pg MCHC 32.4 32.3 - 35.7 g/dL RDW CV 15.4 (H) 11.1 - 14.9 % RDW SD 49.0 (H) 35.7 - 48.1 fL NRBC Abs 0.00 0.00 - 0.01 K/cumm Comprehensive metabolic panel Collection Time: 03/30/18 8:10 AM Result Value Ref Range Sodium 136 135 - 145 mmol/L Potassium, pl 4.4 3.3 - 4.9 mmol/L Chloride 104 97 - 110 mmol/L CO2 13 (L) 22 - 32 mmol/L Anion Gap 19 (H) 2 - 15 mmol/L BUN 15 8 - 25 mg/dL Creatinine 0.42 (L) 0.60 - 1.10 mg/dL Glucose 291 (H) 70 - 199 mg/dL Calcium 8.4 (L) 8.5 - 10.3 mg/dL Bilirubin, total 0.4 0.1 - 1.2 mg/dL Protein, pl 5.4 (L) 6.5 - 8.5 g/dL Albumin 3.5 3.5 - 5.0 g/dL Alk phos 70 40 - 130 Units/L ALT 5 (L) 7 - 45 Units/L AST 11 10 - 45 Units/L Differential, auto Collection Time: 03/30/18 8:10 AM Result Value Ref Range Neutrophil absolute 12.0 (H) 1.7 - 6.5 K/cumm Immature granulocyte absolute 0.1 0.0 - 0.1 K/cumm Lymphocytes absolute 1.8 0.8 - 3.3 K/cumm Monocyte absolute 1.2 (H) 0.2 - 0.8 K/cumm Eosinophils absolute 0.0 0.0 - 0.5 K/cumm Basophils, abs 0.0 0.0 - 0.1 K/cumm Neutrophils 79.1 % Immature granulocytes 0.7 % Lymphocytes 11.9 % Monocytes 8.1 % Eosinophils 0.0 % Basophils 0.2 % eGFR Collection Time: 03/30/18 8:10 AM Result Value Ref Range GFR >60 mL/min/1.73 m2 POCT glucose Collection Time: 03/30/18 9:56 AM Result Value Ref Range Glucose, POC, bld 304 (Critical) 71 - 98 mg/dL POCT glucose Collection Time: 03/30/18 11:59 AM Result Value Ref Range Glucose, POC, bld 230 (H) 71 - 98 mg/dL POCT glucose Collection Time: 03/30/18 12:38 PM Result Value Ref Range Glucose, POC, bld 199 (H) 71 - 98 mg/dL ASSESSMENT/PLAN: 1. Diabetes: Uncontrolled: Will repeat the BMP now. Anion gap in the morning was 19 . The patient was started on Lantus pre meal and sliding scale. Supportive treatment with Zofran for nausea. And will continue the IV fluids. UA is negative for the infection. Will Get a chest x-ray DVT prophylaxis and GI prophylaxis Full Code ESTIMATED LENGTH OF STAY: Patient needs less than 2 inpatient hospitalization with the present condition CLERK documented in this encounter ED Notes * Boubacar Harrison MD - 03/29/2018 5:28 PM CST HPI Chief Complaint Patient presents with ??? Vomiting Patient is a 22-year-old female, type 1 diabetic with history of DKA, recently admitted to outside hospital last week for DKA/nausea vomiting, presents now complaining of the same nausea vomiting which began approximately 2 hr ago. No fevers or chills. No diarrhea. No abdominal pain. No respiratorycomplaints. No aggravating or alleviating factors. There is no other complaints of further review of symptoms negative Patient History Patient Active Problem List Diagnosis Date Noted ??? Type 1 diabetes mellitus with hyperglycemia [...] SECTION, CLASSIC 2017 ??? TONSILLECTOMY Bilateral 2003 No family history on file. Social History Substance Use Topics ??? Smoking status: Never Smoker ??? Smokeless tobacco: Never Used ??? Alcohol use Not on file Social History Social History Narrative ??? No narrative on file Review of Systems Review of Systems All other systems reviewed and are negative. Physical Exam ED Triage Vitals [03/29/18 1714] Temp Pulse Resp BP SpO2 36.2 ??C (97.1 ??F) (!) 140 24 (!) 150/101 99 % Temp src Heart Rate Source Patient Position BP Location FiO2 (%) Temporal -- -- -- -- Physical Exam Constitutional: She appears well-developed and well-nourished. Actively dry heaving HENT: Head: Normocephalic and atraumatic. Dry oral mucosa Eyes: Conjunctivae and EOM are normal. Neck: Normal range of motion. Neck supple. No nuchal rigidity Cardiovascular: Regular rhythm, normal heart sounds and intact distal pulses. Tachycardic Pulmonary/Chest: Effort normal and breath sounds normal. No respiratory distress. Abdominal: Soft. There is no tenderness. Musculoskeletal: Normal range of motion. She exhibits no edema. Neurological: She is alert. Skin: Skin is warm and dry. Capillary refill takes less than 2 seconds. She is not diaphoretic. Psychiatric: She has a normal mood and affect. Nursing note and vitals reviewed. [facility] ED Course as of Mar 29 1949 Time: 03/29 1947 Comment: Spoke to the hospitalist, agrees on admission-continue IV fluids/no insulin drip, family/patient aware of admission By: Boubacar Harrison MD Dehydration Hyperglycemia Boubacar Harrison MD 03/29/181948 CLERK * Diana Patel RN - 03/29/2018 5:11 PM CST Discharged from [facility] on Wednesday for DKA, started vomiting again. Family states her blood sugar is less than 200, But The rest of her blood work is off most of the time CLERK documented in this encounter Miscellaneous Notes * Plan of Care - Azam Ruelas RN - 04/01/2018 4:39 PM CST Coping: ??? Ability to adjust to condition or change in health will improve Adequate for Discharge Fluid Volume: ??? Signs and symptoms of dehydration will decrease Adequate for Discharge ??? Ability to achieve a balanced intake and output will improve Adequate for Discharge ??? Diagnostic test results will improve Adequate for Discharge ??? Ability to maintain a balanced intake and output will improve Adequate for Discharge Health Behavior: ??? Understanding of discharge needs will improve Adequate for Discharge ??? Ability to identify and alter actions that are detrimental to health will improve Adequate for Discharge ??? Ability to identify and utilize available resources and services will improve Adequate for Discharge ??? Ability to manage health-related needs will improve Adequate for Discharge Lack of Knowledge: ??? Understanding of fluid needs related to exercise, heat, and medication will improve Adequate for Discharge ??? Knowledge of the prescribed therapeutic regimen will improve Adequate for Discharge ??? Knowledge of disease or condition will improve by discharge Adequate for Discharge ??? Ability to describe self-care measures that may prevent or decrease complications will improve Adequate for Discharge ??? Knowledge of disease or condition will improve Adequate for Discharge ??? Knowledge of the prescribed therapeutic regimen will improve Adequate for Discharge ??? Knowledge of prevention and discharge planning will improve Adequate for Discharge Nutritional: ??? Maintenance of adequate nutrition will improve Adequate for Discharge ??? Progress toward achieving an optimal weight will improve Adequate for Discharge Physical Regulation: ??? Complications related to the disease process, condition or treatment will be avoided or minimized Adequate for Discharge Goals: Clinical Goals for the Shift: patient blood sugars will be controlled today Summary: patient is afebrile and without pain. Patient blood sugars under control. CLERK * Plan of Care - Azam Ruelas RN - 04/01/2018 3:09 PM CST Coping: ??? Ability to adjust to condition or change in health will improve Progressing Fluid Volume: ??? Signs and symptoms of dehydration will decrease Progressing ??? Ability to achieve a balanced intake and output will improve Progressing ??? Diagnostic test results will improve Progressing ??? Ability to maintain a balanced intake and output will improve Progressing Health Behavior: ??? Understanding of discharge needs will improve Progressing ??? Ability to identify and alter actions that are detrimental to health will improve Progressing ??? Ability to identify and utilize available resources and services will improve Progressing ??? Ability to manage health-related needs will improve Progressing Lack of Knowledge: ??? Understanding of fluid needs related to exercise, heat, and medication will improve Progressing ??? Knowledge of the prescribed therapeutic regimen will improve Progressing ??? Knowledge of disease or condition will improve by discharge Progressing ??? Ability to describe self-care measures that may prevent or decrease complications will improve Progressing ??? Knowledge of disease or condition will improve Progressing ??? Knowledge of the prescribed therapeutic regimen will improve Progressing ??? Knowledge of prevention and discharge planning will improve Progressing Nutritional: ??? Maintenance of adequate nutrition will improve Progressing ??? Progress toward achieving an optimal weight will improve Progressing Physical Regulation: ??? Complications related to the disease process, condition or treatment will be avoided or minimized Progressing Goals: Clinical Goals for the Shift: patient blood sugars will be controlled today Summary: patient is afebrile and without pain. Patient blood sugars are under control. No nausea orvomiting. CLERK * Plan of Care - Tavo Bucio RN - 04/01/2018 6:05 AM CST Goals: Clinical Goals for the Shift: patient blood sugars will be controlled today Summary: CLERK * Plan of Care - Azam Ruelas RN - 03/31/2018 3:00 PM CST Coping: ??? Ability to adjust to condition or change in health will improve Progressing Fluid Volume: ??? Signs and symptoms of dehydration will decrease Progressing ??? Ability to achieve a balanced intake and output will improve Progressing ??? Diagnostic test results will improve Progressing ??? Ability to maintain a balanced intake and output will improve Progressing Health Behavior: ??? Understanding of discharge needs will improve Progressing ??? Ability to identify and alter actions that are detrimental to health will improve Progressing ??? Ability to identify and utilize available resources and services will improve Progressing ??? Ability to manage health-related needs will improve Progressing Lack of Knowledge: ??? Understanding of fluid needs related to exercise, heat, and medication will improve Progressing ??? Knowledge of the prescribed therapeutic regimen will improve Progressing ??? Knowledge of disease or condition will improve by discharge Progressing ??? Ability to describe self-care measures that may prevent or decrease complications will improve Progressing ??? Knowledge of disease or condition will improve Progressing ??? Knowledge of the prescribed therapeutic regimen will improve Progressing ??? Knowledge of prevention and discharge planning will improve Progressing Nutritional: ??? Maintenance of adequate nutrition will improve Progressing ??? Progress toward achieving an optimal weight will improve Progressing Physical Regulation: ??? Complications related to the disease process, condition or treatment will be avoided or minimized Progressing Goals: Clinical Goals for the Shift: patient blood sugars will be controlled today Summary: patient is afebrile and without pain. Blood sugars improving CLERK * CHRISSIN Note - Neida Pabon RN - 03/31/2018 2:47 PM CST Patient Information: Meds and Admin Active and Inactive All Meds/Most Recent Administrations sodium chloride 0.9% bolus 1,000 mL [[id number]] Ordering Provider: Boubacar Harrison MD Status: Completed (Past End Date/Time) Ordered On: 03/29/18 173 Starts/Ends: 03/29/18 1734 - 03/29/18 7267 Dose (Remaining/Total): 1,000 mL (0/1) Route: intravenous Frequency: Once Rate/Duration: 1,000 mL/hr / 1 Hours Line Med Link Info Comment Peripheral IV 03/29/18 22 G Right Forearm 03/29/18 1752 by Ioana Adams RN -- Timestamps Action Dose / Rate / Duration Route / Site Other Information 03/29/18 175 New Bag 1,000 mL 1,000 mL/hr 1 Hours intravenous Right Forearm Performed by: Ioana Adams RN Comments: alaris ondansetron (ZOFRAN) injection 4 mg [[id number]] Ordering Provider: Boubacar Harrison MD Status: Discontinued (Past End Date/Time) Ordered On: 03/29/181732 Starts/Ends: 03/29/181733 - 03/29/18 1800 Dose (Remaining/Total): 4 mg (1/1) Route: intravenous Frequency: Once Rate/Duration: -- / 2 Minutes (No admins recorded for this medication) metoclopramide (REGLAN) injection 10 mg [[id number]] Ordering Provider: Boubacar Harrison MD Status: Completed (Past End Date/Time) Ordered On: 03/29/181799 Starts/Ends: 03/29/181799 - 03/29/181802 Dose (Remaining/Total): 10 mg (0/1) Route: intravenous Frequency: Once Rate/Duration: -- / 1 Minutes Line Med Link Info Comment Peripheral IV 03/29/18 22 G Right Forearm 03/29/181801 by Ioana Adams RN -- Timestamps Action Dose / Duration Route / Site Other Information 03/29/181801 Given 10 mg 1 Minutes intravenous Right Forearm Performed by: Ioana Adams RN Comments: alaris sodium chloride 0.9% bolus 1,000 mL [[id number]] Ordering Provider: Boubacar Harrison MD Status: Completed (Past End Date/Time) Ordered On: 03/29/181920 Starts/Ends: 03/29/181921 - 03/29/182149 Dose (Remaining/Total): 1,000 mL (0/1) Route: intravenous Frequency: Once Rate/Duration: 1,000 mL/hr / 1 Hours Line Med Link Info Comment Peripheral IV 03/29/18 22 G Right Forearm 03/29/182003 by Dago Andre RN -- Timestamps Action Dose / Rate / Duration Route Other Information 03/29/182003 New Bag 1,000 mL 1,000 mL/hr 1 Hours intravenous Performed by: Dago Andre RN sodium chloride 0.9% infusion [[id number]] Ordering Provider: Boubacar Harrison MD Status: Verified Ordered On: 03/29/182146 Start: 03/29/182147 Dose (Remaining/Total): 200 mL/hr (--/--) Route: intravenous Frequency: Continuous Rate/Duration: 200 mL/hr / -- Admin Instructions: Continue after IV boluses complete Line Med Link Info Comment Peripheral IV 03/29/18 22 G Right Forearm 03/29/182157 by Pato Giles RN -- Timestamps Action Dose / Rate Route Other Information 03/31/18 1022 New Bag 200 mL/hr 200 mL/hr intravenous Performed by: Azam Ruelas RN acetaminophen (TYLENOL) tablet 650 mg [[id number]] Ordering Provider: Boubacar Harrison MD Status: Verified Ordered On: 03/30/18733 Start: 03/30/18733 Dose (Remaining/Total): 650 mg (--/--) Route: oral Frequency: Every 4 hours PRN Rate/Duration: -- / -- (No admins recorded for this medication) enoxaparin (LOVENOX) syringe 30 mg [[id number]] Ordering Provider: Boubacar Harrison MD Status: Discontinued (Past End Date/Time) Ordered On: 03/30/18733 Starts/Ends: 03/30/18733 - 03/30/181449 Dose (Remaining/Total): 30 mg (--/--) Route: subcutaneous Frequency: Daily (for enoxaparin) Rate/Duration: -- / -- (No admins recorded for this medication) metoclopramide (REGLAN) injection 10 mg [[id number]] Ordering Provider: Boubacar Harrison MD Status: Dispensed Ordered On: 03/29/182146 Start: 03/29/182199 Dose (Remaining/Total): 10 mg (--/--) Route: intravenous Frequency: Every 8 hours scheduled Rate/Duration: -- / 1 Minutes Line Med Link Info Comment Peripheral IV 03/29/18 22 G Right Forearm 03/29/182158 by Pato Giles RN -- Timestamps Action Dose / Duration Route Other Information 03/31/18 05 Given 10 mg 1 Minutes intravenous Performed by: Tavo Bucio RN ondansetron (ZOFRAN) injection 4 mg [[id number]] Ordering Provider: Ayana Prado MD Status: Dispensed Ordered On: 03/30/1851 Start: 03/30/1851 Dose (Remaining/Total): 4 mg (98/99) Route: intravenous Frequency: Every 6 hours PRN Rate/Duration: -- / 2 Minutes Line Med Link Info Comment Peripheral IV 03/29/18 22 G Right Forearm 03/30/18104 by Pato Giles RN -- Timestamps Action Dose / Duration Route / Site Other Information 03/30/18104 Given 4 mg 2 Minutes intravenous Right Forearm Performed by: Pato Giles RN ketorolac (TORADOL) injection 15 mg [[id number]] Ordering Provider: Ayana Prado MD Status: Completed (Past End Date/Time) Ordered On: 03/30/1851 Starts/Ends: 03/30/1852 - 03/30/18105 Dose (Remaining/Total): 15 mg (0/1) Route: intravenous Frequency: Once Rate/Duration: -- / -- Admin Instructions: For Adult IV push, administer over 15 seconds Line Med Link Info Comment Peripheral IV 03/29/18 22 G Right Forearm 03/30/18105 by Pato Giles RN -- Timestamps Action Dose Route / Site Other Information 03/30/18105 Given 15 mg intravenous Right Forearm Performed by: Pato Giles RN insulin glargine (LANTUS,BASAGLAR) pen injection 5 Units [[id number]] Ordering Provider: Ayana Prado MD Status: Completed (Past End Date/Time) Ordered On: 03/30/1852 Starts/Ends: 03/30/1853 - 03/30/18132 Dose (Remaining/Total): 5 Units (0/1) Route: subcutaneous Frequency: Once Rate/Duration: -- / -- Admin Instructions: Do not mix with other insulins Timestamps Action Dose Route / Site Other Information 03/30/18132 Given 5 Units subcutaneous Right Upper Arm Performed by: Dago Andre RN dextrose gel in packet 15 g [[id number]] Ordering Provider: Ayana Prado MD Status: Verified Ordered On: 03/30/1852 Start: 03/30/1851 Dose (Remaining/Total): 15 g (--/--) Route: oral Frequency: Every 15 min PRN Rate/Duration: -- / -- Admin Instructions: If patient is alert and able to eat/drink, give 15 gm glucose or one juice (4 fluid ounces) NOT ORANGE JUICE. After treatment for hypoglycemia, recheck BG followed by treatment every 15 minutes until the BG is greater than 100 mg/dL. Then check BG 1 hour post-treatment. If BG isless than 100 mg/dL, repeat Q15 minute BG checks and treatment. Call MD for each episode of hypoglycemia. (No admins recorded for this medication) dextrose (D10W) 10% bolus 250 mL [[id number]] Ordering Provider: Ayana Prado MD Status: Verified Ordered On: 03/30/1852 Start: 03/30/1851 Dose (Remaining/Total): 250 mL (--/--) Route: intravenous Frequency: Every 15 min PRN Rate/Duration: 1,000 mL/hr / 15 Minutes Admin Instructions: After treatment for hypoglycemia, recheck BG followed by treatment every 15 minutes until the BG is greater than 100 mg/dL. Then check BG 1 hour post treatment. If BG is less rebl645 mg/dL, repeat Q15 minute BG checks and treatment. Call MD for each episode of hypoglycemia. (No admins recorded for this medication) dextrose 50% (concentrated solution) 50 % CONCENTRATED solution 25 g [[id number]] Ordering Provider: Ayana Prado MD Status: Verified Ordered On: 03/30/1852 Start: 03/30/1851 Dose (Remaining/Total): 25 g (--/--) Route: intravenous Frequency: Every 15 min PRN Rate/Duration: -- / 2 Minutes Admin Instructions: After treatment for hypoglycemia, recheck BG followed by treatment every 15 minutes until the BG is greater than 100 mg/dL. Then check BG 1 hour post treatment. If BG is less rekl728 mg/dL, repeat Q15 minute BG checks and treatment. Call MD for each episode of hypoglycemia. (No admins recorded for this medication) glucagon injection 1 mg [[id number]] Ordering Provider: Ayana Prado MD Status: Verified Ordered On: 03/30/1852 Start: 03/30/1851 Dose (Remaining/Total): 1 mg (--/--) Route: intramuscular Frequency: Every 30 min PRN Rate/Duration: -- / 1 Minutes Admin Instructions: After Glucagon is administered, position patient on side if possible to avoid aspiration. Obtain IV access. Follow glucagon treatment with glucose treatment or IV dextrose. After treatment for hypoglycemia, recheck BG followed by treatment every 15 minutes until the BG isgreater than 100 mg/dL. Then check BG 1 hour post treatment. If BG is less than 100 mg/dL, repeat Q15 minute BG checks and treatment. Call MD for each episode of hypoglycemia. (No admins recorded for this medication) insulin lispro (HumaLOG) pen injection 1-2 Units [[id number]] Ordering Provider: Ayana Prado MD Status: Discontinued (Past End Date/Time) Ordered On: 03/30/1852 Starts/Ends: 03/30/1853 - 03/30/181048 Dose (Remaining/Total): 1-2 Units (--/--) Route: subcutaneous Frequency: Every 6 hours scheduled Rate/Duration: -- / -- Admin Instructions: Blood Sugar Low Dose NPO patients 200 or less No Insulin 201 - 250 1 unit 251 - 299 2 units Greater than 299 Call MD for hyperglycemia management instructions Do NOT hold for NPO status. Timestamps Action Dose Route / Site Other Information 03/30/18338 Given 2 Units subcutaneous Left Upper Arm Performed by: Dago Andre RN sodium chloride 0.9% bolus 1,000 mL [[id number]] Ordering Provider: Mukesh Angel MD Status: Completed (Past End Date/Time) Ordered On: 03/30/1857 Starts/Ends: 03/30/1858 - 03/30/18 0300 Dose (Remaining/Total): 1,000 mL (0/1) Route: intravenous Frequency: Once Rate/Duration: 1,000 mL/hr / 1 Hours Line Med Link Info Comment Peripheral IV 03/29/18 22 G Right Forearm 03/30/18128 by Dago Andre RN -- Timestamps Action Dose / Rate / Duration Route Other Information 03/30/18128 New Bag 1,000 mL 1,000 mL/hr 1 Hours intravenous Performed by: Dago Andre RN metoprolol (LOPRESSOR) injection 2.5 mg [[id number]] Ordering Provider: Mukesh Angel MD Status: Completed (Past End Date/Time) Ordered On: 03/30/18 0152 Starts/Ends: 03/30/18 0153 - 03/30/18 0212 Dose (Remaining/Total): 2.5 mg (0/1) Route: intravenous Frequency: Once Rate/Duration: -- / 1 Minutes Line Med Link Info Comment Peripheral IV 03/29/18 22 G Right Forearm 03/30/18 021 by Dinesh Blas RN -- Timestamps Action Dose / Duration Route Other Information 03/30/18210 Given 2.5 mg 1 Minutes intravenous Performed by: Dinesh Blas RN insulin glargine (LANTUS,BASAGLAR) pen injection 10 Units [[id number]] Ordering Provider: Pamela Pires MD Status: Completed (Past End Date/Time) Ordered On: 03/30/18 1040 Starts/Ends: 03/30/18 1041 - 03/30/18 1052 Dose (Remaining/Total): 10 Units (0/1) Route: subcutaneous Frequency: Once Rate/Duration: -- / -- Admin Instructions: Do not mix with other insulins Timestamps Action Dose Route / Site Other Information 03/30/18 1052 Given 10 Units subcutaneous Left Upper Arm Performed by: Merari Holcomb RN insulin lispro (HumaLOG) pen injection 5 Units [[id number]] Ordering Provider: Pamela Pires MD Status: Verified Ordered On: 03/30/18 1040 Start: 03/30/18 1200 Dose (Remaining/Total): 5 Units (--/--) Route: subcutaneous Frequency: 3 times daily with meals Rate/Duration: -- / -- Admin Instructions: Administer pre-meal doses when pts food tray arrives in room. Do not administerpre-meal doses to NPO patients. Timestamps Action Dose Route / Site Other Information 03/31/18 1319 Given 5 Units subcutaneous Left Upper Arm Performed by: Azam E. Siemer, RN enoxaparin (LOVENOX) syringe 40 mg [[id number]] Ordering Provider: Ayana Prado MD Status: Dispensed Ordered On: 03/30/18 1450 Start: 03/30/18 2100 Dose (Remaining/Total): 40 mg (--/--) Route: subcutaneous Frequency: Daily (for enoxaparin) Rate/Duration: -- / -- Admin Instructions: Dose of enoxaparin adjusted per LMWH protocol for CrCl=>30 ml/min (MtBg=199.9 ml/min) Timestamps Action Dose Route / Site Other Information 03/30/18 2211 Given 40 mg subcutaneous Left Lower Abdomen Performed by: Tavo Bucio RN CLERK * Plan of Care - Tavo Bucio RN - 03/31/2018 5:48 AM CST Goals: Clinical Goals for the Shift: PT WILL FEEL STRONGER AND WILL REMAIN HEMODYNAMICALLY STABLE Summary: CLERK * Plan of Care - Catarina Rivera RN - 03/30/2018 6:57 PM CST Goals: Clinical Goals for the Shift: PT WILL FEEL STRONGER AND WILL REMAIN HEMODYNAMICALLY STABLE Summary: Pt refuses PO nourishment and mealtime insulin held per MD order. Anion gap improving. CLERK documented in this encounter Plan of Treatment Not on file documented as of this encounter Procedures Procedure Name Priority Date/Time Associated Diagnosis Comments POCT GLUCOSE DEVICE Routine 04/01/2018 1 1:23 AM TAG CLERK POCT GLUCOSE DEVICE Routine 04/01/2018 7 :44 AM TAG CLERK POCT GLUCOSE DEVICE Routine 04/01/2018 2 :16 AM TAG CLERK POCT GLUCOSE DEVICE Routine 03/31/2018 8 :47 PM TAG CLERK POCT GLUCOSE DEVICE Routine 03/31/2018 4 :24 PM TAG CLERK POCT GLUCOSE DEVICE Routine 03/31/2018 1 1:34 AM TAG CLERK EGFR Routine 03/31/2018 8:40 AM TAG CLERK DIFFERENTIAL AUTO Routine 03/31/2018 8:4 0 AM TAG CLERK CBC WITH AUTO DIFFERENTIAL Routine 03/31/2018 8:40 AM TAG CLERK BASIC METABOLIC PANEL Routine 03/31/2018 8:40 AM TAG CLERK POCT GLUCOSE DEVICE Routine 03/30/2018 9 :32 PM TAG CLERK POCT GLUCOSE DEVICE Routine 03/30/2018 5 :17 PM TAG CLERK EGFR Routine 03/30/2018 4:49 PM TAG CLERK BASIC METABOLIC PANEL Routine 03/30/2018 4:49 PM TAG CLERK ECG 12-LEAD STAT 03/30/2018 4:33 PM TAG CLERK Sinus tachycardia POCT GLUCOSE DEVICE Routine 03/30/2018 1 2:38 PM TAG CLERK POCT GLUCOSE DEVICE Routine 03/30/2018 1 1:59 AM TAG CLERK POCT GLUCOSE DEVICE Routine 03/30/2018 9 :56 AM TAG CLERK SEPSIS LACTATE WITH REFLEX Timed 03/30/2018 8:10 AM TAG CLERK EGFR STAT 03/30/2018 8:10 AM TAG CLERK DIFFERENTIAL AUTO STAT 03/30/2018 8:1 0 AM TAG CLERK CBC WITH AUTO DIFFERENTIAL STAT 03/30/2018 8:10 AM TAG CLERK COMPREHENSIVE METABOLIC PANEL STAT 03/30/2018 8:10 AM TAG CLERK POCT GLUCOSE DEVICE Routine 03/30/2018 6 :11 AM TAG CLERK SEPSIS LACTATE WITH REFLEX Timed 03/30/2018 5:56 AM TAG CLERK POCT GLUCOSE DEVICE Routine 03/30/2018 2 :55 AM TAG CLERK ECG 12-LEAD Routine 03/30/2018 2:13 AM TAG CLERK ECG 12-LEAD Routine 03/30/2018 1:21 AM TAG CLERK SEPSIS LACTATE WITH REFLEX Timed 03/30/2018 1:15 AM TAG CLERK POCT GLUCOSE DEVICE Routine 03/30/2018 1 2:42 AM TAG CLERK SEPSIS LACTATE WITH REFLEX Timed 03/29/2018 11:20 PM TAG CLERK SEPSIS LACTATE WITH REFLEX Timed 03/29/2018 9:21 PM TAG CLERK POCT GLUCOSE DEVICE Routine 03/29/2018 8 :06 PM TAG CLERK SEPSIS LACTATE WITH REFLEX Timed 03/29/2018 7:49 PM TAG CLERK URINALYSIS AND REFLEX TO MICROSCOPIC AND CULTURE STAT 03/29/2018 7:07 PM TAG CLERK HCG, URINE, QUALITATIVE STAT 03/29/2018 7:07 PM TAG CLERK DRUGS OF ABUSE SCREEN, URINE WITHOUT CONFIRMATION Add-On 03/29/2018 7:06 PM TAG CLERK ECG 12-LEAD STAT 03/29/2018 6:10 PM TAG CLERK EGFR STAT 03/29/2018 5:52 PM TAG CLERK DIFFERENTIAL AUTO STAT 03/29/2018 5:5 2 PM TAG CLERK POCT GLUCOSE DEVICE Routine 03/29/2018 5 :52 PM TAG CLERK CBC WITH AUTO DIFFERENTIAL STAT 03/29/2018 5:52 PM TAG CLERK COMPREHENSIVE METABOLIC PANEL STAT 03/29/2018 5:52 PM TAG CLERK SEPSIS LACTATE WITH REFLEX STAT 03/29/2018 5:44 PM TAG CLERK BLOOD GAS, ARTERIAL STAT 03/29/2018 5 :44 PM TAG CLERK documented in this encounter Results * (ABNORMAL) POCT glucose (04/01/2018 11:23 AM TAG CLERK) [facility] Glucose, POC 205(H) 71 - 98 mg/dL TOMY SAHU (VASHTI) Blood specimen (specimen) 04/01/2018 11:23 AM TAG CLERK 04/01/2018 11:23 AM TAG CLERK Narrative TOMY LUIS ALBERTO (VASHTI) - 04/01/2018 11:27 AM TAG CLERK Pamela Pires MD LAB POCT ORDERABLES - DE VICE Final Result Performing Organization Address [facility] Co de Phone Number TOMY SAHU (VASHTI) 1 [facility] [place] [address] * (ABNORMAL) POCT glucose (04/01/2018 7:44 AM TAG CLERK) [facility] Glucose, POC 218(H) 71 - 98 mg/dL TOMY SAHU (VASHTI) Blood specimen (specimen) 04/01/2018 7:44 AM TAG CLERK 04/01/2018 7:44 AM TAG CLERK Narrative [facility] (VASHTI) - 04/01/2018 7:45 AM TAG CLERK us Pameal Pires MD LAB POCT ORDERABLES - DE VICE Final Result TOMY SAHU (VASHTI) 1 [facility] [place] [address] * (ABNORMAL) POCT glucose (04/01/2018 2:16 AM TAG CLERK) Glucose, POC 146(H) 71 - 98 mg/dL [facility] (VASHTI) Blood specimen (specimen) 04/01/2018 2:16 AM TAG CLERK 04/01/2018 2:16 AM TAG CLERK Narrative TOMY [facility] (VASHTI) - 04/01/2018 2:17 AM TAG CLERK Pamela Pires MD LAB POCT ORDERABLES - DE VICE Final Result TOMY SAHU (VASHTI) 1 [facility] [place] [address] * (ABNORMAL) POCT glucose (03/31/2018 8:47 PM TAG CLERK) Glucose, POC 122(H) 71 - 98 mg/dL T[facility] (VASHTI) Blood specimen (specimen) 03/31/2018 8:47 PM TAG CLERK 03/31/2018 8:47 PM TAG CLERK Narrative TOMY [facility] (VASHTI) - 03/31/2018 8:48 PM TAG CLERK Pamela Pires MD LAB POCT ORDERABLES - DE VICE Final Result Performing Organization Address [facility]/ZIP Co de Phone Number TOMY SAHU (VASHTI) 1 [facility] [place] [address] * (ABNORMAL) POCT glucose (03/31/2018 4:24 PM TAG CLERK) Glucose, POC 162(H) 71 - 98 mg/dL TOMY SAHU (VASHTI) Blood specimen (specimen) 03/31/2018 4:24 PM TAG CLERK 03/31/2018 4:24 PM TAG CLERK Narrative TOMY [facility] (VASHTI) - 03/31/2018 4:25 PM TAG CLERK Pamela Pires MD LAB POCT ORDERABLES - DE VICE Final Result TOMY SAHU (VASHTI) 1 [facility] Department [place] [address] * (ABNORMAL) POCT glucose (03/31/2018 11:34 AM TAG CLERK) Pathologist [facility] Glucose, POC 139(H) 71 - 98 mg/dL TOMY [facility] (REDGRAN[place]) Blood specimen (specimen) 03/31/2018 11:34 AM TAG CLERK 03/31/2018 11:34 AM TAG CLERK Narrative TOMY SAHU ([place]GR[place]) - 03/31/2018 11:35 AM TAG CLERK us Pamela Pires MD LAB POCT ORDERABLES - DE VICE Final Result TOMY SAHU (REDGR[place]ITE) 1 [facility] Department [place] [address] * Differential, auto (03/31/2018 8:40 AM TAG CLERK) Pathologist [facility] Neutrophil abs 3.2 1.7 - 6.5 K/cumm [facility] ([place]) Imm gran abs 0.1 0.0 - 0.1 K/cumm [facility] (VASHTI) Lymphocyte abs 2.1 0.8 - 3.3 K/cumm [facility] (VASHTI) Monocyte abs 0.5 0.2 - 0.8 K/cumm [facility] ([place]) Eosinophil abs 0.0 0.0 - 0.5 K/cumm [facility] (VASHTI) Basophil abs 0.0 0.0 - 0.1 K/cumm [facility] (VASHTI) Neutrophil pct 53.9 % [facility] R [facility] (VASHTI) Comment: Interpretive Data Percent cell count reference ranges are not reported, since discordance with absolute values may lead to misinterpretation of CBC data. Current Interpretive Data was last revised on 2017. Imm gran pct 1.2 % [facility] (VASHTI) Comment: Interpretive Data Percent cell count reference ranges are not reported, since discordance with absolute values may lead to misinterpretation of CBC data. Current Interpretive Data was last revised on 2017. Lymphocyte pct 35.8 % [facility] R [facility] (VASHTI) Comment: Interpretive [...] last revised on 2017. Blood specimen (specimen) 03/31/2018 8:40 AM TAG CLERK 03/31/2018 3:23 PM TAG CLERK Narrative [facility] (VASHTI) - 03/31/2018 3:25 PM TAG CLERK Pamela Pires MD LAB BLOOD ORDERABLES Fin al Result TOMY [facility] (VASHTI) 1 [facility] Department [place] [address] * (ABNORMAL) CBC with auto differential (03/31/2018 8:40 AM TAG CLERK) WBC 5.9 3.8 - 9.9 K/cumm [facility] (VASHTI) Hgb 12.4 11.9 - 15.5 g/dL [facility] ([place]) Hct 38.6 35.6 - 45.5 % [facility] ([place]HT[place]) Plt 349 150 - 400 K/cumm [facility] ([place]) MPV 9.6 9.1 - 12.3 fL [facility] ([place]) RBC 4.49 3.90 - 5.20 M/cumm [facility] ([place]) MCV 86.0 81.3 - 96.4 fL TOMY [facility] (VASHTI) MCH 27.6 27.1 - 33.3 pg TOMY SAHU (VASHTI) MCHC 32.1(L) 32.3 - 35.7 g/dL [facility]Y [facility] (VASHTI) RDW CV 15.3(H) 11.1 - 14.9 % [facility] (VASHTI) RDW SD 48.3(H) 35.7 - 48.1 fL [facility] (VASHTI) NRBC abs 0.00 0.00 - 0.01 K/cumm [facility]Y [facility] (VASHTI) Blood specimen (specimen) 03/31/2018 8:40 AM TAG CLERK 03/31/2018 3:23 PM TAG CLERK Narrative TOMY [facility] (VASHTI) - 03/31/2018 3:25 PM TAG CLERK Pamela Pires MD LAB BLOOD ORDERABLES Fin al Result TOMY SAHU (VASHTI) 1 [facility] Department [place] [address] * eGFR (03/31/2018 8:40 AM TAG CLERK) eGFR >60 mL/min/1.7 3 m2 [facility] (VASHTI) Comment: Interpretive Data Reference Interval Normal ?>/= 90 mL/min/1.73m2 Mildly decreased* ? 60 - 89 mL/min/1.73m2 Mildly to moderately decreased ?45 - 59 mL/min/1.73m2 Moderately to severely decreased ??30 - 44 mL/min/1.73m2 Severely decreased ?15 - 29 mL/min/1.73m2 Kidney Failure ?< 15 ??mL/min/1.73m2 *Relative to young adult level If -[place] multiply value by 1.16. Estimated glomerular filtration [...] was last reviewed 2015. Blood specimen (specimen) 03/31/2018 8:40 AM TAG CLERK 03/31/2018 9:00 AM TAG CLERK Narrative [facility]NER [facility] (VASHTI) - 03/31/2018 9:21 AM TAG CLERK us Pamela Pires MD LAB BLOOD ORDERABLES Fin al Result TOMY [facility] (VASHTI) 1 [facility] Department [place] [address] * (ABNORMAL) Basic metabolic panel (03/31/2018 8:40 AM TAG CLERK) Sodium 135 135 - 145 mmol/L CERNER [...] - 1.10 mg/dL [facility] (VASHTI) Glucose 192 70 - 199 mg/dL [facility] (VASHTI) [...] 2017. Calcium 8.1(L) 8.5 - 10.3 mg/dL TOMY [facility] (VASHTI) Blood specimen (specimen) 03/31/2018 8:40 AM TAG CLERK 03/31/2018 9:00 AM TAG CLERK Narrative TOMY [facility] (VASHTI) - 03/31/2018 9:20 AM TAG CLERK Pamela Pires MD LAB BLOOD ORDERABLES Fin al Result Performing Organization Address [facility] de Phone Number TOMY SAHU (VASHTI) 1 [facility] [place] [address] * (ABNORMAL) POCT glucose (03/30/2018 9:32 PM TAG CLERK) Glucose, POC 151(H) 71 - 98 mg/dL TOMY [facility] (VASHTI) Blood specimen (specimen) 03/30/2018 9:32 PM TAG CLERK 03/30/2018 9:32 PM TAG CLERK Narrative [facility] (VASHTI) - 03/30/2018 9:35 PM TAG CLERK Ayana Prado MD LAB POCT ORDERABLES - DEVICE Fin al Result Performing Organization Address [facility] de Phone Number TOMY SAHU (VASHTI) 1 [facility] [place] [address] * (ABNORMAL) POCT glucose (03/30/2018 5:17 PM TAG CLERK) Glucose, POC 116(H) 71 - 98 mg/dL TOMY [facility] (VASHTI) Blood specimen (specimen) 03/30/2018 5:17 PM TAG CLERK 03/30/2018 5:17 PM TAG CLERK Narrative [facility] (VASHTI) - 03/30/2018 5:19 PM TAG CLERK Ayana Prado MD LAB POCT ORDERABLES - DEVICE Fin al Result Performing Organization Address [facility]/ZIP Co de Phone Number TOMY SAHU (VASHTI) 1 [facility] Department [place] [address] * eGFR (03/30/2018 4:49 PM TAG CLERK) eGFR >60 mL/min/1.7 3 m2 TOMY SAHU (VASHTI) Comment: Interpretive Data Reference Interval Normal ?>/= 90 mL/min/1.73m2 Mildly decreased* ? 60 - 89 mL/min/1.73m2 Mildly to moderately decreased ?45 - 59 mL/min/1.73m2 Moderately to severely decreased ??30 - 44 mL/min/1.73m2 Severely decreased ?15 - 29 mL/min/1.73m2 Kidney Failure ?< 15 ??mL/min/1.73m2 *Relative to young adult level If -[place] multiply value by 1.16. Estimated glomerular filtration [...] was last reviewed 2015. Blood specimen (specimen) 03/30/2018 4:49 PM TAG CLERK 03/30/2018 4:56 PM TAG CLERK Narrative TOMY LUQUE) - 03/30/2018 5:44 PM TAG CLERK us Pamela Pires MD LAB BLOOD ORDERABLES Fin al Result Performing Organization Address City/[facility]/ZIP Co de Phone Number TOMY SAHU (VASHTI) 1 [facility] Department [place] [address] * (ABNORMAL) Basic metabolic panel (03/30/2018 4:49 PM TAG CLERK) Sodium 128(L) 135 - 145 mmol/L CERNER [...] - 1.10 mg/dL [facility] (VASHTI) Glucose 143 70 - 199 mg/dL [facility] (VASHTI) [...] mg/dL [facility] (VASHTI) Blood specimen (specimen) 03/30/2018 4:49 PM TAG CLERK 03/30/2018 4:56 PM TAG CLERK Narrative TOMY [facility] (VASHTI) - 03/30/2018 5:44 PM TAG CLERK us Dre Mancuso MD LAB BLOOD ORDERABLES Final Res ult TOMY SAHU (VASHTI) 1 [facility] Department [place] [address] * ECG 12 lead (03/30/2018 4:33 PM TAG CLERK) Patient age 22 years [facility] Interpretation Text SINUS TACHYCARDIABORDERLINE RIGHT AXIS DEVIATIONABNORMAL RHYTHM ECGPREVIOUS TRACIN03/30/2018 02.13 [facility] Comment:Physician Interprete r Dr. Cl Patel M.D. Ventricular Rate EKG/Min 108 /min [facility] P Wave Duration 109 ms [facility] QRS-Interval (MSEC) 77 ms [facility] GA-Interval (MSEC) 130 ms [facility] QT Interval 316 ms [facility] QTc 400 ms [facility] QTC Interval ms [facility] P Lovely 72 deg [facility] QRS Lovely 93 deg [facility] T Lovely 44 deg [facility] 03/30/2018 4:33 PM TAG CLERK Dre Mancuso MD ECG ORDERABLES Final Result Performing Organization Address City/[facility]/ZIP Co de Phone Number [facility] * (ABNORMAL) POCT glucose (03/30/2018 12:38 PM TAG CLERK) Glucose, POC 199(H) 71 - 98 mg/dL TOMY [facility] (VASHTI) Blood specimen (specimen) 03/30/2018 12:38 PM TAG CLERK 03/30/2018 12:38 PM TAG CLERK Narrative TOMY [facility] (VASHTI) - 03/30/2018 12:39 PM TAG CLERK Boubacar Harrison MD LAB POCT ORDERABLES - DEVICE Final Result TOMY LUIS ALBERTO (VASHTI) 1 [facility] Department [place] [address] * (ABNORMAL) POCT glucose (03/30/2018 11:59 AM TAG CLERK) Glucose, POC 230(H) 71 - 98 mg/dL [facility]Y [facility] (VASHTI) Blood specimen (specimen) 03/30/2018 11:59 AM TAG CLERK 03/30/2018 11:59 AM TAG CLERK Narrative TOMY [facility] (VASHTI) - 03/30/2018 12:01 PM TAG CLERK Boubacar Harrison MD LAB POCT ORDERABLES - DEVICE Final Result TOMY SAHU (VASHTI) 1 [facility] [place] [place] [address] * (ABNORMAL) POCT glucose (03/30/2018 9:56 AM TAG CLERK) Pathologist [facility] Glucose, POC 304(C) 71 - 98 mg/dL TOMY SAHU (VASHTI) Blood specimen (specimen) 03/30/2018 9:56 AM TAG CLERK 03/30/2018 9:56 AM TAG CLERK Narrative TOMY SAHU (VASHTI) - 03/30/2018 9:57 AM TAG CLERK Boubacar Harrison MD LAB POCT ORDERABLES - DEVICE Final Result Performing Organization Address City/[facility]/ZIP Co de Phone Number TOMY SAHU (VASHTI) 1 [facility] [place] [place] [address] * eGFR (03/30/2018 8:10 AM TAG CLERK) Pathologist [facility] eGFR >60 mL/min/1.7 3 m2 TOMY SAHU (VASHTI) Comment: Interpretive Data Reference Interval Normal ?>/= 90 mL/min/1.73m2 Mildly decreased* ? 60 - 89 mL/min/1.73m2 Mildly to moderately decreased ?45 - 59 mL/min/1.73m2 Moderately to severely decreased ??30 - 44 mL/min/1.73m2 Severely decreased ?15 - 29 mL/min/1.73m2 Kidney Failure ?< 15 ??mL/min/1.73m2 *Relative to young adult level If -[place] multiply value by 1.16. Estimated glomerular filtration [...] was last reviewed 2015. Blood specimen (specimen) 03/30/2018 8:10 AM TAG CLERK 03/30/2018 8:13 AM TAG CLERK Narrative [facility]Y [facility] (VASHTI) - 03/30/2018 8:46 AM TAG CLERK us Pamela Pires MD LAB BLOOD ORDERABLES Fin al Result TOMY [facility] (VASHTI) 1 [facility] Department [place] [address] * (ABNORMAL) Differential, auto (03/30/2018 8:10 AM TAG CLERK) Neutrophil abs 12.0(H) 1.7 - 6.5 K/cumm [facility] ([place]) Imm gran abs 0.1 0.0 - 0.1 K/cumm [facility] ([place]) Lymphocyte abs 1.8 0.8 - 3.3 K/cumm [facility] ([place]) Monocyte abs 1.2(H) 0.2 - 0.8 K/cumm [facility] ([place]) Eosinophil abs 0.0 0.0 - 0.5 K/cumm [facility] ([place]) Basophil abs 0.0 0.0 - 0.1 K/cumm [facility] ([place]) Neutrophil pct 79.1 % [facility] ([place]ASHTI) Comment: Interpretive [...] was last revised on 2017. Lymphocyte pct 11.9 % [facility] (VASHTI) Comment: Interpretive Data Percent cell count reference ranges are not reported, since discordance with absolute values may lead to misinterpretation of CBC data. Current Interpretive Data was last revised on 2017. Monocyte pct 8.1 % [facility] ([place]HTI) Comment: Interpretive Data [...] last revised on 2017. Blood specimen (specimen) 03/30/2018 8:10 AM TAG CLERK 03/30/2018 8:13 AM TAG CLERK Narrative ASHLEYNER [facility] (VASHTI) - 03/30/2018 8:27 AM TAG CLERK Pamela Pires MD LAB BLOOD ORDERABLES Fin al Result TOMY [facility] (VASHTI) 1 [facility] Department [place] [address] * (ABNORMAL) Comprehensive metabolic panel (03/30/2018 8:10 AM TAG CLERK) Sodium 136 135 - 145 mmol/L CERNER [...] - 1.10 mg/dL [facility] ([place]) Glucose 291(H) 70 - 199 mg/dL [facility] ([place]HT[place]) [...] 1.2 mg/dL [facility] ([place]) Protein, pl 5.4(L) 6.5 - 8.5 g/dL [facility] ([place]) Albumin 3.5 3.5 - 5.0 g/dL [facility] ([place]) Alk phos 70 40 - 130 Units/L [facility] ([place]) ALT 5(L) 7 - 45 Units/L [facility] ([place]) AST 11 10 - 45 Units/L [facility] ([place]) Blood specimen (specimen) 03/30/2018 8:10 AM TAG CLERK 03/30/2018 8:13 AM TAG CLERK Narrative [facility] (VASHTI) - 03/30/2018 8:46 AM TAG CLERK us Pamela Pires MD LAB BLOOD ORDERABLES Fin al Result [facility] (VASHTI) 1 [facility] Department [place] [address] * (ABNORMAL) CBC with auto differential (03/30/2018 8:10 AM TAG CLERK) WBC 15.2(H) 3.8 - 9.9 K/cumm [facility] ([place]) Hgb 11.0(L) 11.9 - 15.5 g/dL [facility] ([place]) Hct 34.0(L) 35.6 - 45.5 % [facility] ([place]) Plt 356 150 - 400 K/cumm [facility] ([place]) MPV 9.2 9.1 - 12.3 fL [facility] ([place]) RBC 3.92 3.90 - 5.20 M/cumm [facility] ([place]) MCV 86.7 81.3 - 96.4 fL [facility] ([place]) MCH 28.1 27.1 - 33.3 pg [facility] ([place]) MCHC 32.4 32.3 - 35.7 g/dL [facility] ([place]) RDW CV 15.4(H) 11.1 - 14.9 % [facility] ([place]) RDW SD 49.0(H) 35.7 - 48.1 fL [facility] ([place]) NRBC abs 0.00 0.00 - 0.01 K/cumm [facility] ([place]) Blood specimen (specimen) 03/30/2018 8:10 AM TAG CLERK 03/30/2018 8:13 AM TAG CLERK Narrative ASHLEYNER [facility] (VASHTI) - 03/30/2018 8:27 AM TAG CLERK us Pamela Pires MD LAB BLOOD ORDERABLES Fin al Result Performing Organization Address City/[facility]/ZIP Co de Phone Number TOMY [facility] (VASHTI) 1 [facility] [employer] [place] [address] * Sepsis Lactate w/ Reflex (03/30/2018 8:10 AM TAG CLERK) Sepsis Lactate 1.4 0.7 - 2.0 mmol/L [facility] ([place]HTI) Blood specimen (specimen) 03/30/2018 8:10 AM TAG CLERK 03/30/2018 8:13 AM TAG CLERK Narrative [facility] (VASHTI) - 03/30/2018 8:16 AM TAG CLERK us Boubacar Harrison MD LAB BLOOD ORDERABLES Final Re sult [facility]OMY [facility] (VASHTI) 1 [facility] Department [place] [address] * (ABNORMAL) POCT glucose (03/30/2018 6:11 AM TAG CLERK) Glucose, POC 174(H) 71 - 98 mg/dL TOMY SAHU (VASHTI) Blood specimen (specimen) 03/30/2018 6:11 AM TAG CLERK 03/30/2018 6:11 AM TAG CLERK Narrative TOMY SAHU (VASHTI) - 03/30/2018 6:13 AM TAG CLERK us Boubacar Harrison MD LAB POCT ORDERABLES - DEVICE Final Result TOMY SAHU (VASHTI) 1 [facility] [place] [address] * Sepsis Lactate w/ Reflex (03/30/2018 5:56 AM TAG CLERK) [facility] Sepsis Lactate 1.4 0.7 - 2.0 mmol/L TOMY SAHU (VASHTI) Blood specimen (specimen) 03/30/2018 5:56 AM TAG CLERK 03/30/2018 6:16 AM TAG CLERK Narrative TOMY SAHU (VASHTI) - 03/30/2018 6:23 AM TAG CLERK us Boubacar Harrison MD LAB BLOOD ORDERABLES Final Re sult TOMY OwensVASHTI) 1 [facility] [place] [address] * (ABNORMAL) POCT glucose (03/30/2018 2:55 AM TAG CLERK) Glucose, POC 315(C) 71 - 98 mg/dL TOMY SAHU (VASHTI) Blood specimen (specimen) 03/30/2018 2:55 AM TAG CLERK 03/30/2018 2:55 AM TAG CLERK Narrative TOMY SAHU (VASHTI) - 03/30/2018 2:58 AM TAG CLERK us Boubacar Harrison MD LAB POCT ORDERABLES - DEVICE Final Result TOMY [facility] GracielaREDGRANITE) 1 [facility] Department [place] [address] * ECG 12 lead (03/30/2018 2:13 AM TAG CLERK) Patient age 22 years [facility] Interpretation Text SINUS TACHYCARDIA WITH SHORT GA INTERVALPOSSIBLE RIGHT ATRIAL ENLARGEMENTPOSSIBLE LEFT ATRIAL ENLARGEMENTABNORMAL RHYTHM ECGPREVIOUS TRACIN03/30/2018 01.21 [facility] Comment:Physician Interprete r Dr. Cl Patel M.D. Ventricular Rate EKG/Min 117 /min [facility] P Wave Duration 107 ms [facility] QRS-Interval (MSEC) 86 ms [facility] GA-Interval (MSEC) 118 ms [facility] QT Interval 298 ms [facility] QTc 397 ms [facility] QTC Interval ms [facility] P Lovely 67 deg [facility] QRS Lovely 83 deg [facility] T Lovely 59 deg [facility] 03/30/2018 2:13 AM TAG CLERK us Mukesh Angel MD ECG ORDERABLES Final Result [facility] * ECG 12 lead (03/30/2018 1:21 AM TAG CLERK) Patient age 22 years [facility] Interpretation Text SINUS TACHYCARDIA WITH SHORT GA INTERVALNondiagnostic STT abnormalitiesABNORMAL ECGPREVIOUS TRACIN03/29/2018 18.10 [facility] Comment:Physician Interprete r Dr. Cl Patel M.D. Ventricular Rate EKG/Min 153 /min [facility] P Wave Duration 104 ms [facility] QRS-Interval (MSEC) 69 ms [facility] GA-Interval (MSEC) 113 ms [facility] QT Interval 267 ms [facility] QTc 429 ms [facility] QTC Interval ms [facility] P Lovely 79 deg [facility] QRS Lovely 89 deg [facility] T Lovely 42 deg [facility] 03/30/2018 1:21 AM TAG CLERK Mukesh Angel MD ECG ORDERABLES Final Result [facility] * (ABNORMAL) Sepsis Lactate w/ Reflex (03/30/2018 1:15 AM TAG CLERK) Sepsis Lactate 2.6(H) 0.7 - 2.0 mmol/L [facility] ([place]HTI) Blood specimen (specimen) 03/30/2018 1:15 AM TAG CLERK 03/30/2018 1:18 AM TAG CLERK Narrative [facility] (VASHTI) - 03/30/2018 1:24 AM TAG CLERK Boubacar Harrison MD LAB BLOOD ORDERABLES Final Re sult Performing Organization Address [facility]/ZIP Co de Phone Number [facility]Y [facility] (VASHTI) 1 [facility] Department [place] [address] * (ABNORMAL) POCT glucose (03/30/2018 12:42 AM TAG CLERK) Pathologist [facility] Glucose, POC 322(C) 71 - 98 mg/dL [facility] (VASHTI) Blood specimen (specimen) 03/30/2018 12:42 AM TAG CLERK 03/30/2018 12:42 AM TAG CLERK Narrative [facility] (VASHTI) - 03/30/2018 12:44 AM TAG CLERK Boubacar Harrison MD LAB POCT ORDERABLES - DEVICE Final Result Performing Organization Address City/[facility]/ZIP Co de Phone Number [facility] (VASHTI) 1 [facility] Department [place] [address] * Sepsis Lactate w/ Reflex (03/29/2018 11:20 PM TAG CLERK) Sepsis Lactate 1.4 0.7 - 2.0 mmol/L [facility] ([place]I) Blood specimen (specimen) 03/29/2018 11:20 PM TAG CLERK 03/29/2018 11:22 PM TAG CLERK Narrative [facility] (VASHTI) - 03/29/2018 11:27 PM TAG CLERK Boubacar Harrison MD LAB BLOOD ORDERABLES Final Re sult Performing Organization Address [facility]/State/ZIP Co de Phone Number TOMY SAHU (VASHTI) 1 [facility] [place] [place] [address] * (ABNORMAL) Sepsis Lactate w/ Reflex (03/29/2018 9:21 PM TAG CLERK) Sepsis Lactate 2.4(H) 0.7 - 2.0 mmol/L TOMY SAHU (VASHTI) Blood specimen (specimen) 03/29/2018 9:21 PM TAG CLERK 03/29/2018 9:30 PM TAG CLERK Narrative TOMY SAHU (VASHTI) - 03/29/2018 9:36 PM TAG CLERK Boubacar Harrison MD LAB BLOOD ORDERABLES Final Re sult Performing Organization Address [facility] Co de Phone Number TOMY SAHU (VASHTI) 1 [facility] [place] [address] * (ABNORMAL) POCT glucose (03/29/2018 8:06 PM TAG CLERK) [facility] Glucose, POC 413(C) 71 - 98 mg/dL TOMY SAHU (REDGRANITE) Blood specimen (specimen) 03/29/2018 8:06 PM TAG CLERK 03/29/2018 8:06 PM TAG CLERK Narrative TOMY SAHU (VASHTI) - 03/29/2018 8:09 PM TAG CLERK us Boubacar Harrison MD LAB POCT ORDERABLES - DEVICE Final Result Performing Organization Address City/[facility]/ZIP Co de Phone Number TOMY SAHU (REDGRANITE) 1 [facility] [place] [address] * Sepsis Lactate w/ Reflex (03/29/2018 7:49 PM TAG CLERK) Pathologist [facility] Sepsis Lactate 2.0 0.7 - 2.0 mmol/L [facility] (VASHTI) Blood specimen (specimen) 03/29/2018 7:49 PM TAG CLERK 03/29/2018 7:52 PM TAG CLERK Narrative [facility] (VASHTI) - 03/29/2018 7:57 PM TAG CLERK Boubacar Harrison MD LAB BLOOD ORDERABLES Final Re sult Performing Organization Address [facility]/ZIP Co de Phone Number TOMY SAHU (VASHTI) 1 [facility] [place] [address] * hCG, urine, qualitative (03/29/2018 7:07 PM TAG CLERK) HCG, ur Negative Negative [facility] (VASHTI) Urine 03/29/2018 7:07 PM TAG CLERK 03/29/2018 7:14 PM TAG CLERK Narrative [facility] ([place]HTI) - 03/29/2018 7:31 PM TAG CLERK Boubacar Harrison MD LAB URINE ORDERABLES Final Re sult Performing Organization Address [facility] Co de Phone Number TOMY SAHU (VASHTI) 1 [facility] [place] [address] * (ABNORMAL) Urinalysis reflex to microscopic and culture Urine (03/29/2018 7:07 PM TAG CLERK) Color, ur Yellow Yellow [facility] ([place]) Clarity, ur Clear Clear [facility] (REDGRANITE) Specific gravity, ur >1.030(H) 1.010 - 1.025 [facility] ([place]) pH, urine 7.0 [facility] ([place]) Protein, ur ql Negative Negative [facility] ([place]) Glucose, ur ql 3+(A) Negative [facility] ([place]) Ketones, ur 3+(A) Negative [facility] (VASHTI) Bilirubin, ur Negative Negative [facility] ([place]) Blood, ur Negative Negative [facility] (VSAHTI) Urobilinogen, ur 0.2 mg/dL [facility] ([place]) Nitrite, ur Negative Negative [facility] ([place]HTI) Leukocyte esterase, ur Negative Negative TOMY SAHU (VASHTI) Urine 03/29/2018 7:07 PM TAG CLERK 03/29/2018 7:14 PM TAG CLERK Narrative TOMY SAHU (VASHTI) - 03/29/2018 7:25 PM TAG CLERK ?? Urine pH is affected by diet, medications, systemic acid-base disturbances, and renal tubular function. ??pH may affect urinary stone formation. ??For example, urine pH below 6.0 may help reduce the tendency for calcium phosphate stones and pH greater than 6.0 may reduce the tendency for uric acid stone formation. Source: [employer]. Last revised 05-13-2017 us Boubacar Harrison MD LAB MICROBIOLOGY - GENERAL OR DERABLES Final Result TOMY SAHU (VASHTI) 1 [facility] Department [place] [address] * Drug screen, urine (03/29/2018 7:06 PM TAG CLERK) Amphetamines, Class Negative Screen Negative Screen TOMY SAHU (VASHTI) Comment: Interpretive Data Amphetamines cut off value 1000 ng/mL Current interpretive data was last revised on 2014. Barbiturates, Class Negative Screen Negative Screen TOMY SAHU (VASHTI) Comment: Interpretive Data Barbiturates cut off value 200 ng/mL Current interpretive data was last revised on 2014. Benzodiazepines, ur Negative Screen Negative Screen TOMY SAHU (VASHTI) Comment: Interpretive Data Benzodiazepines cut off value 200 ng/mL Current interpretive data was last revised on 2014. Cannabinoids, Screen Negative Screen Negative Screen TOMY SAHU (VASHTI) Comment: Interpretive Data THC/Marijuana cut off value 50 ng/mL Current interpretive data was last revised on 2014. Cocaine metabolite Negative Screen Negative Screen TOMY SHAU (VASHTI) Comment: Interpretive Data Cocaine cut off value 300 ng/mL Current interpretive data was last revised on 2014. Opiates, Class Negative Screen Negative Screen TOMY SAHU (VASHTI) Comment: Interpretive Data Opiates cut off value 2000 ng/mL Current interpretive data was last revised on 2014. Phencyclidine, ur Negative Screen Negative Screen TOMY SAHU (REDGRANITE) Comment: Interpretive Data PCP cut off value 25 ng/mL All drugs included in this panel are screening testing only. All positive urines will be confirmed upon Doctor request only. Unconfirmed screening results must not be used for non-medical purposes. Current interpretive data was last revised on 2014. Urine 03/29/2018 7:06 PM TAG CLERK 03/30/2018 5:43 AM TAG CLERK Narrative TOMY LUIS ALBERTO (REDGRANITE) - 03/30/2018 6:11 AM TAG CLERK us Ayana Prado MD LAB URINE ORDERABLES Final Resul t TOMY LUIS ALBERTO (REDGRANITE) 1 [facility] Department [place] [address] * ECG 12 lead (03/29/2018 6:10 PM TAG CLERK) Patient age 22 years [facility] Interpretation Text SINUS TACHYCARDIAPOSSIBLE RIGHT ATRIAL ENLARGEMENTLEFT ATRIAL ENLARGEMENTMODERATE ST DEPRESSIONABNORMAL ECGPREVIOUS TRACIN01/03/2018 19.09 [facility] Comment:Physician Interprete r Dr. Cl Patel M.D. Ventricular Rate EKG/Min 116 /min [facility] P Wave Duration 128 ms [facility] QRS-Interval (MSEC) 78 ms [facility] GA-Interval (MSEC) 136 ms [facility] QT Interval 317 ms [facility] QTc 415 ms [facility] QTC Interval ms [facility] P Lovely 70 deg [facility] QRS Lovely 89 deg [facility] T Lovely 41 deg [facility] 03/29/2018 6:10 PM TAG CLERK us Boubacar Harrison MD ECG ORDERABLES Final Result Performing Organization Address [facility] Co de Phone Number [facility] * eGFR (03/29/2018 5:52 PM TAG CLERK) eGFR >60 mL/min/1.7 3 m2 [facility] (VASHTI) Comment: Interpretive Data Reference Interval Normal ?>/= 90 mL/min/1.73m2 Mildly decreased* ? 60 - 89 mL/min/1.73m2 Mildly to moderately decreased ?45 - 59 mL/min/1.73m2 Moderately to severely decreased ??30 - 44 mL/min/1.73m2 Severely decreased ?15 - 29 mL/min/1.73m2 Kidney Failure ?< 15 ??mL/min/1.73m2 *Relative to young adult level If -[place] multiply value by 1.16. Estimated glomerular filtration [...] was last reviewed 2015. Blood specimen (specimen) 03/29/2018 5:52 PM TAG CLERK 03/29/2018 5:56 PM TAG CLERK Narrative ASHLEYTOSHA SAHU (VASHTI) - 03/29/2018 6:22 PM TAG CLERK us Boubacar Harrison MD LAB BLOOD ORDERABLES Final Re sult [facility] ([place]I) 1 [facility] Department [place] [address] * (ABNORMAL) Differential, auto (03/29/2018 5:52 PM TAG CLERK) Neutrophil abs 5.8 1.7 - 6.5 K/cumm [facility] ([place]) Imm gran abs 0.0 0.0 - 0.1 K/cumm [facility] ([place]) Lymphocyte abs 0.7(L) 0.8 - 3.3 K/cumm [facility] ([place]) Monocyte abs 0.2 0.2 - 0.8 K/cumm [facility] ([place]) Eosinophil abs 0.0 0.0 - 0.5 K/cumm [facility] ([place]) Basophil abs 0.0 0.0 - 0.1 K/cumm [facility] ([place]) Neutrophil pct 85.6 % [facility] ([place]) Comment: Interpretive [...] was last revised on 2017. Lymphocyte pct 10.2 % [facility] ([place]) Comment: Interpretive Data Percent cell count reference ranges are not reported, since discordance with absolute values may lead to misinterpretation of CBC data. Current Interpretive Data was last revised on 2017. Monocyte pct 2.9 % [facility] ([place]) Comment: Interpretive Data [...] was last revised on 2017. Basophil pct 0.6 % [facility] ([place]) Comment: Interpretive Data Percent cell count reference ranges are not reported, since discordance with absolute values may lead to misinterpretation of CBC data. Current Interpretive Data was last revised on 2017. Blood specimen (specimen) 03/29/2018 5:52 PM TAG CLERK 03/29/2018 5:56 PM TAG CLERK Narrative [facility] ([place]) - 03/29/2018 6:34 PM TAG CLERK Boubacar Harrison MD LAB BLOOD ORDERABLES Final Re sult Performing Organization Address City/[facility]/ZIP Co de Phone Number TOMY SAHU (VASHTI) 1 [facility] [place] [address] * (ABNORMAL) POCT glucose (03/29/2018 5:52 PM TAG CLERK) Glucose, POC 301(C) 71 - 98 mg/dL [facility] ([place] Comment:Glu2: RN/ Notified Blood specimen (specimen) 03/29/2018 5:52 PM TAG CLERK 03/29/2018 5:52 PM TAG CLERK Narrative TOMY SAHU (VASHTI) - 03/29/2018 5:53 PM TAG CLERK us Notinfile Unknown LAB POCT ORDERABLES - DEVICE F inal Result Performing Organization Address [facility]/ZIP Co de Phone Number TOMY SAHU (VASHTI) 1 [facility] [place] [address] * (ABNORMAL) Comprehensive metabolic panel (03/29/2018 5:52 PM TAG CLERK) [facility] Sodium 135 135 - 145 mmol/L [facility] ([place]) Potassium, pl 4.2 3.3 - 4.9 mmol/L [facility] ([place]) Chloride 90(L) 97 - 110 mmol/L [facility] ([place]) CO2 23 22 - 32 mmol/L [facility] ([place]) Anion gap 22(H) 2 - 15 mmol/L [facility] ([place]) BUN 18 8 - 25 mg/dL [facility] ([place]) Creatinine 0.44(L) 0.60 - 1.10 mg/dL [facility] ([place]) Glucose 360(H) 70 - 199 mg/dL [facility] ([place]) Comment: Interpretive Data Fasting glucose [...] - 8.5 g/dL [facility] ([place]) Albumin 5.0 3.5 - 5.0 g/dL [facility] ([place]) Alk phos 105 40 - 130 Units/L [facility] ([place]) ALT 10 7 - 45 Units/L [facility] ([place]) AST 12 10 - 45 Units/L [facility] ([place]) Blood specimen (specimen) 03/29/2018 5:52 PM TAG CLERK 03/29/2018 5:56 PM TAG CLERK Narrative [facility] ([place]) - 03/29/2018 6:22 PM TAG CLERK us Boubacar Harrison MD LAB BLOOD ORDERABLES Final Re sult [facility] ([place]HT[place]) 1 [facility] Department [place] [address] * (ABNORMAL) CBC with auto differential (03/29/2018 5:52 PM TAG CLERK) WBC 6.8 3.8 - 9.9 K/cumm [facility] ([place]) Hgb 14.7 11.9 - 15.5 g/dL [facility] ([place]) Hct 43.3 35.6 - 45.5 % [facility] ([place]) Plt 409(H) 150 - 400 K/cumm [facility] ([place]) MPV 8.8(L) 9.1 - 12.3 fL [facility] ([place]) RBC 5.35(H) 3.90 - 5.20 M/cumm [facility] ([place]) MCV 80.9(L) 81.3 - 96.4 fL [facility] ([place]) MCH 27.5 27.1 - 33.3 pg [facility] ([place]) MCHC 33.9 32.3 - 35.7 g/dL [facility] ([place]) RDW CV 15.0(H) 11.1 - 14.9 % [facility] ([place]) RDW SD 43.8 35.7 - 48.1 fL [facility] ([place]) NRBC abs 0.00 0.00 - 0.01 K/cumm [facility] ([place]) Blood specimen (specimen) 03/29/2018 5:52 PM TAG CLERK 03/29/2018 5:56 PM TAG CLERK Narrative [facility] ([place]I) - 03/29/2018 6:34 PM TAG CLERK Boubacar Harrison MD LAB BLOOD ORDERABLES Final Re sult Performing Organization Address City/[facility]/ZIP Co de Phone Number TOMY SAHU (VASHTI) 1 [facility] Department [place] [address] * (ABNORMAL) Blood gas, arterial (03/29/2018 5:44 PM TAG CLERK) pH, Art 7.52(H) 7.35 - 7.45 [facility] ([place]) PCO2, Arterial 25(L) 35 - 45 mmHg [facility] ([place]) PO2, Arterial 136(H) 83 - 108 mmHg [facility] ([place]) HCO3 Art (Calculated) 20 20 - 30 mmol/L [facility] ([place]) BE, art -1 mmol/L [facility] ([place]) Comment: Interpretive Data No Reference Range Established Current Interpretive Data was last revised on 2017 O2 Sat Art (Measured) 100(H) 90 - 95 % [facility] ([place]) Blood specimen (specimen) 03/29/2018 5:44 PM TAG CLERK 03/29/2018 5:48 PM TAG CLERK Narrative [facility] ([place]) - 03/29/2018 5:50 PM TAG CLERK Boubacar Harrison MD LAB BLOOD ORDERABLES Final Re sult TOMY LUQUE) 1 [facility] Department [place] [address] * (ABNORMAL) Sepsis Lactate w/ Reflex (03/29/2018 5:44 PM TAG CLERK) Sepsis Lactate 2.2(H) 0.7 - 2.0 mmol/L TOMY SAHU (VASHTI) Blood specimen (specimen) 03/29/2018 5:44 PM TAG CLERK 03/29/2018 5:57 PM TAG CLERK Narrative TOMY SAHU (VASHTI) - 03/29/2018 5:58 PM TAG CLERK us Boubacar Harrison MD LAB BLOOD ORDERABLES Final Re sult TOMY LUQUE) 1 [facility] Department [place] [address] documented in this encounter Visit Diagnoses Diagnosis Dehydration- Primary Hyperglycemia Other abnormal glucose Sinus tachycardia Other specified cardiac dysrhythmias Type 1 diabetes mellitus with complication (CMS/HCC) (HCC) documented in this encounter Administered Medications Inactive Administered Medications - up to 3 most recent administrations Medication Order MAR Action Action Date Dose Rate Site dextrose (D10W) 10% bolus 250 mL 250 mL, intravenous, at 1,000 mL/hr, Administer over 15 Minutes, Every 15 min PRN, blood glucose less than 70 mg/dL and UNABLE to swallow/take PO glucose/juice., Starting on Wed03/30/18 at 0052, After treatment for hypoglycemia, recheck BG followed by treatment every 15 minutes until the BG is greater than 100 mg/dL. Then check BG 1 hour post treatment. If BG is less than 100 mg/dL, repeat Q15 minute BG checks and treatment. Call MD for each episode of hypoglycemia., Indications: hypoglycemic disorderIndications:hypog lycemic disorder dextrose 50% (concentrated solution) 50 % CONCENTRATED solution 25 g 25 g, intravenous, Administer over 2 Minutes, Every 15 min PRN, low blood sugar, blood glucose less than 50 mg/dL AND decreased level of consciousness., Starting on Wed03/30/18 at 0052, After treatment for hypoglycemia, recheck BG followed by treatment every 15 minutes until the BG is greater than 100 mg/dL. Then check BG 1 hour post treatment. If BG is less than 100 mg/dL, repeat Q15 minute BG checks and treatment. Call MD for each episode of hypoglycemia., Indications: hypoglycemic disorderIndications:hypog lycemic disorder dextrose gel in packet 15 g 15 g, oral, Every 15 min PRN, low blood sugar, blood glucose less than 70 mg/dL, Starting on Wed03/30/18 at 0052, If patient is alert and able to [...] enoxaparin), First dose (after last modification) on Wed03/30/18 at 2100, Dose of enoxaparin adjusted per LMWH protocol for CrCl=>30 ml/min (TmIg=266.9 ml/min), Indications: Deep Vein Thrombosis PreventionIndications:Rachel p Vein Thrombosis Prevention Given 03/30/2018 10:11 PM TAG CLERK 40 mg Left Lower Abdomen glucagon injection 1 mg 1 mg, intramuscular, Administer over 1 Minutes, Every 30 min PRN, low blood sugar, blood glucose less than 70 mg/dL AND no IV access AND unable to take PO glucose/jiuce., Starting on Wed03/30/18 at 0052, After Glucagon is administered, position patient on [...] HypoglycemiaIndications:H ypoglycemia insulin glargine (LANTUS,BASAGLAR) pen injection 10 Units 10 Units, subcutaneous, Once, On Wed03/30/18 at 1041, For 1 dose, Do not mix with other insulins Given 03/30/2018 10:52 AM TAG CLERK 10 Units Left Upper Arm insulin glargine (LANTUS,BASAGLAR) pen injection 5 Units 5 Units, subcutaneous, Once, On Wed03/30/18 at 0054, For 1 dose, Do not mix with other insulins Given 03/30/2018 1:33 AM TAG CLERK 5 Units Right Upper Arm insulin lispro (HumaLOG) pen injection 1-2 Units 1-2 Units, subcutaneous, Every 6 hours scheduled, First dose on Wed03/30/18 at 0054, Blood Sugar Low Dose NPO patients 200 or less No Insulin 201 - 250 1 unit 251 - 299 2 units Greater than 299 Call MD for hyperglycemia management instructions Do NOT hold for NPO status., Indications: Diabetes MellitusIndications:Diabe celia Mellitus Given 03/30/2018 3:39 AM TAG CLERK 2 Units Left Upper Arm insulin lispro (HumaLOG) pen injection 5 Units 5 Units, subcutaneous, 3 times daily with meals, First dose on Wed03/30/18 at 1200, Administer pre-meal doses when pts food tray arrives in room. Do not administer pre-meal doses to NPO patients. Given 04/01/2018 12:39 PM TAG CLERK 5 Units Right Upper Arm Given 04/01/2018 8:56 AM TAG CLERK 5 Units Le ft Upper Arm Given 03/31/2018 5:58 PM TAG CLERK 5 Units Ri ght Upper Arm ketorolac (TORADOL) injection 15 mg 15 mg, intravenous, Once, On Wed03/30/18 at 0053, For 1 dose, For Adult IV push, administer over 15 seconds Given 03/30/2018 1:06 AM TAG CLERK 15 mg Right Forearm metoclopramide (REGLAN) injection 10 mg 10 mg, intravenous, Administer over 1 Minutes, Once, On Wed03/29/18 at 1801, For 1 dose Given 03/29/2018 6:02 PM TAG CLERK 10 mg Right Forearm metoclopramide (REGLAN) injection 10 mg 10 mg, intravenous, Administer over 1 Minutes, Every 8 hours scheduled, First dose on Wed03/29/18 at 2200 Given 03/31/2018 5:26 AM TAG CLERK 10 mg Given 03/30/2018 10:12 PM TAG CLERK 10 mg Given 03/29/2018 9:59 PM TAG CLERK 10 mg Ri ght Forearm metoprolol (LOPRESSOR) injection 2.5 mg 2.5 mg, intravenous, Administer over 1 Minutes, Once, On Wed03/30/18 at 0153, For 1 dose Given 03/30/2018 2:11 AM TAG CLERK 2.5 mg ondansetron (ZOFRAN) injection 4 mg 4 mg, intravenous, Administer over 2 Minutes, Every 6 hours PRN, nausea, vomiting, Starting on Wed03/30/18 at 0052, For 99 doses Given 03/30/2018 1:05 AM TAG CLERK 4 mg Right Forearm sodium chloride 0.9% bolus 1,000 mL 1,000 mL, intravenous, at 1,000 mL/hr, Administer over 1 Hours, Once, On Wed03/29/18 at 1734, For 1 dose New 03/29/2018 5:52 PM TAG CLERK 1,000 mL 1000 mL/hr Right Forearm sodium chloride 0.9% bolus 1,000 mL 1,000 mL, intravenous, at 1,000 mL/hr, Administer over 1 Hours, Once, On Wed03/29/18 at 1922, For 1 dose New 03/29/2018 8:04 PM TAG CLERK 1,000 mL 1000 mL/hr sodium chloride 0.9% bolus 1,000 mL 1,000 mL, intravenous, at 1,000 mL/hr, Administer over 1 Hours, Once, On Wed03/30/18 at 0059, For 1 dose New 03/30/2018 1:29 AM TAG CLERK 1,000 mL 1000 mL/hr sodium chloride 0.9% infusion 200 mL/hr, intravenous, Continuous, Starting on Wed03/29/18 at 2148, Continue after IV boluses complete New 03/31/2018 7:58 PM TAG CLERK 200 mL/hr 200 mL/hr New 03/31/2018 10:22 AM TAG CLERK 200 mL/hr 200 mL/hr New 03/30/2018 1:49 PM TAG CLERK 200 mL/hr 200 mL/hr documented in this encounter Historical Medications * This list may reflect changes made after this encounter. sertraline (ZOLOFT) 50 mg tablet Take 50 mg by mouth daily. 12/31/2017 9 ondansetron ODT (ZOFRAN-ODT) 4 mg disintegrating tablet Take 4 mg by mouth 3 (three) times a day as needed for vomiting. 07/22/2017 9 added in this encounter Active and Recently Administered Medications Times are shown in TAG CLERK. Scheduled Medication Order 03/30/2018 03/31/2018 04/01/2018 enoxaparin (LOVENOX) syringe 40 mg 40 mg, subcutaneous, Daily (for enoxaparin), First dose (after last modification) on Wed03/30/18 at 2100, Dose of enoxaparin adjusted per LMWH protocol for CrCl=>30 ml/min (QbNz=138.9 ml/min), Indications: Deep Vein Thrombosis Prevention 221 (Given - Provider: Tavo Bucio, MARY) 2113 (Not Given - Provider: Tavo Bucio, MARY - Reason: Patient/family refused) insulin glargine (LANTUS,BASAGLAR) pen injection 10 Units (COMPLETED) 10 Units, subcutaneous, Once, On Wed03/30/18 at 1041, For 1 dose, Do not mix with other insulins 1052 (Given - Provider: Merari Holcomb RN) insulin glargine (LANTUS,BASAGLAR) pen injection 5 Units (COMPLETED) 5 Units, subcutaneous, Once, On Wed03/30/18 at 0054, For 1 dose, Do not mix with other insulins 0133 (Given - Provider: Dago Andre RN) insulin lispro (HumaLOG) pen injection 1-2 Units (CANCELED) 1-2 Units, subcutaneous, Every 6 hours scheduled, First dose on Wed03/30/18 at 0054, Blood Sugar Low Dose NPO patients 200 or less No Insulin 201 - 250 1 unit 251 - 299 2 units Greater than 299 Call MD for hyperglycemia management instructions Do NOT hold for NPO status., Indications: Diabetes Mellitus 0339 (Given - Provider: Dago Andre, MARY)0731 (Not Given - Provider: Merari Holcomb RN - Reason: See Provider Order - Comment: FSBS 174) insulin lispro (HumaLOG) pen injection 5 Units 5 Units, subcutaneous, 3 times daily with meals, First dose on Wed03/30/18 at 1200, Administer pre-meal doses when pts food tray arrives in room. Do not administer pre-meal doses to NPO patients. 1200 (Given - Provider: Merari Holcomb RN)1736 (Not Given - Provider: Catarina Rivera RN - Reason: NPO - Comment: pt refuses to eat anything) 0853 (Not Given - Provider: Azam Ruelas RN - Reason: Other - Comment: patient not eating)1319 (Given - Provider: Azam Ruelas, MARY)1758 (Given - Provider: Azam Ruelas, MARY) 0856 (Given - Provider: Azam Ruelas RN)1239 (Given - Provider: Azam Ruelas RN) ketorolac (TORADOL) injection 15 mg (COMPLETED) 15 mg, intravenous, Once, On Wed03/30/18 at 0053, For 1 dose, For Adult IV push, administer over 15 seconds 0106 (Given - Provider: Pato Giles, MARY) metoclopramide (REGLAN) injection 10 mg 10 mg, intravenous, Administer over 1 Minutes, Every 8 hours scheduled, First dose on Wed03/29/18 at 2200 0732 (Not Given - Provider: Merari Holcomb RN - Reason: Patient/family refused)1307 (Not Given - Provider: Merari Holcomb RN - Reason: Patient/family refused)2212 (Given - Provider: Tavo Bucio RN) 0526 (Given - Provider: Tavo Bucio RN)1420 (Not Given - Provider: Azam Ruelas RN - Reason: Patient/family refused)2114 (Not Given - Provider: Tavo Bucio RN - Reason: Patient/family refused) 0518 (Not Given - Provider: Tavo Bucio RN - Reason: Patient/family refused)1400 (Not Given - Provider: Azam Ruelas RN - Reason: Patient/family refused) metoprolol (LOPRESSOR) injection 2.5 mg (COMPLETED) 2.5 mg, intravenous, Administer over 1 Minutes, Once, On Wed03/30/18 at 0153, For 1 dose 0211 (Given - Provider: Dinesh Blas RN) sodium chloride 0.9% bolus 1,000 mL (COMPLETED) 1,000 mL, intravenous, at 1,000 mL/hr, Administer over 1 Hours, Once, On Wed03/30/18 at 0059, For 1 dose 0129 (New Bag - Provider: Dago Andre RN)0300 (Stopped - Provider: Pato Giles RN) Continuous Medication Order 03/30/2018 03/31/2018 04/01/2018 sodium chloride 0.9% infusion (CANCELED) 200 mL/hr, intravenous, Continuous, Starting on Wed03/29/18 at 2148, Continue after IV boluses complete 0335 (New Bag - Provider: Pato Giles RN - Comment: per pump)0857 (Stopped - Provider: Merari Holcomb RN)0858 (New Bag - Provider: Merari Holcomb RN)1156 (Rate/Dose Verify - Provider: Merari Holcomb RN)1345 (Stopped - Provider: Merari Holcomb RN)1349 (New Bag - Provider: Merari Holcomb RN) 1022 (New Bag - Provider: Azam Ruelas RN)1958 (New Bag - Provider: Tavo Bucio RN) PRN Medication Order 03/30/2018 03/31/2018 04/01/2018 acetaminophen (TYLENOL) tablet 650 mg 650 mg, oral, Every 4 hours PRN, 1st line for pain, fever, fever greater than 38.3 C, Starting on Wed03/30/18 at 0734, Indications: Fever, Pain dextrose (D10W) 10% bolus 250 mL(Linked Group 1) 250 mL, intravenous, at 1,000 mL/hr, Administer over 15 Minutes, Every 15 min PRN, blood glucose less than 70 mg/dL and UNABLE to swallow/take PO glucose/juice., Starting on Wed03/30/18 at 0052, After treatment for hypoglycemia, recheck BG followed by treatment every 15 minutes until the BG is greater than 100 mg/dL. Then check BG 1 hour post treatment. If BG is less than 100 mg/dL, repeat Q15 minute BG checks and treatment. Call MD for each episode of hypoglycemia., Indications: hypoglycemic disorder dextrose 50% (concentrated solution) 50 % CONCENTRATED solution 25 g(Linked Group 1) 25 g, intravenous, Administer over 2 Minutes, Every 15 min PRN, low blood sugar, blood glucose less than 50 mg/dL AND decreased level of consciousness., Starting on Wed03/30/18 at 51, After treatment for hypoglycemia, recheck BG followed [...] glucose less than 70 mg/dL, Starting on Wed03/30/18 at 51, If patient is alert and able to [...] unable to take PO glucose/jiuce., Starting on Wed03/30/18 at 51, After Glucagon is administered, position patient on [...] for each episode of hypoglycemia., Indications: Hypoglycemia ondansetron (ZOFRAN) injection 4 mg 4 mg, intravenous, Administer over 2 Minutes, Every 6 hours PRN, nausea, vomiting, Starting on Wed03/30/18 at 51, For 99 doses 0105 (Given - Provider: Pato Giles RN) Linked Groups Order Group 1: dextrose gel in packet 15 gJump to med 15 g, oral, Every 15 min PRN, low blood sugar, blood glucose less than 70 mg/dL, Starting on Wed03/30/18 at 0052, If patient is alert and able to [...] UNABLE to swallow/take PO glucose/juice., Starting on Wed03/30/18 at 005, After treatment for hypoglycemia, recheck BG followed by treatment every 15 minutes until the BG is greater than 100 mg/dL. Then check BG 1 hour post treatment. If BG is less than 100 mg/dL, repeat Q15 minute BG checks and treatment. Call MD for each episode of hypoglycemia., Indications: hypoglycemic disorder Or dextrose 50% (concentrated solution) 50 % CONCENTRATED solution 25 gJump to med 25 g, intravenous, Administer over 2 Minutes, Every 15 min PRN, low blood sugar, blood glucose less than 50 mg/dL AND decreased level of consciousness., Starting on Wed03/30/18 at 0052, After treatment for hypoglycemia, recheck BG followed [...] dextrose (D10W) 10% bolus 250 mL 1 03/30/20 dextrose 50% (concentrated s olution) 50 % CONCENTRATED solution 25 g 1 03/30/2018 dextrose gel in packet 15 g 1 03/30/2018 enoxaparin (LOVENOX) syringe 30 mg 1 2017 glucagon injection 1 mg 1 03/30/2018 ondansetron (ZOFRAN) injection 4 mg 1 03/29 Lab Orders Without Results Count Last Ordered D ate First Ordered Date POCT GLUCOSE DEVICE 4 03/30/2018 03/29/20 18 Diet Count Last Ordered Date First Orde red Date ADULT DISCHARGE DIET 1 04/01/2018 Nursing Count Last Ordered Date First Orde red Date DISCHARGE ACTIVITY 1 04/01/2018 DISCHARGE INSTRUCTIONS 2 04/01/2018 FOLLOW UP PRIMARY PHYSICIAN 1 04/01/2018 VITAL SIGNS 1 03/30/2018 WEIGH PATIENT 1 03/30/2018 Admission Count Last Ordered Date First Orde red Date ASSIGN PATIENT STATUS 2 03/30/20182017 ADT Patient Update Count Last Ordered Date Firs t Ordered Date ED IP DECISION TO ADMIT 1 03/29/2018 documented in this encounter Care Teams Lead Javascript Engineer Relationship Specialty Start Date End Date No, Physician PCP - General 03/29/18 10/03/18 documented as of this encounter
--- OUTSIDE RECORDS SUMMARY | 2024-05-10 18:42 | XMS_ITS | Encounter Summary ---
Author Organization [facility] Healthcare Address [address] [place] [address] Care Team Providers Care Wellness Health Coach Name Role Phone No, Physician Primary Care Provider [phone] Reason for Visit * Reason Comments Vomiting Hyperglycemia Encounter Details Date Type Department Care Team (Latest Contact Info) Description 05/26/2018 2:13 PM BROACH SETTER - 06/02/2018 1:02 PM BROACH SETTER Hospital Encounter [facility] IMU [address] [place] [address] Pato Haney MD [address] [place] [address] [place] [address] Sanjuanita Enamorado MD [address] [place] [id number] Josette Sloan MD [address] [place] [id number] [place] [id number] [address] Type 1 diabetes mellitus with ketoacidosis without coma (CMS/HCC) (Primary Dx) Discharge Disposition: Discharge to home or self care Social History Tobacco Use Types Packs/Day Years Used Date Smoking Tobacco: Never Smokeless Tobacco: Never Alcohol Use Standard Drinks/Week Comments Yes 0 (1 standard drink = 0.6 oz pur e alcohol) Comments No Sex and Gender Information Value Date Recorded Sex Assigned at Not on file Legal Sex Female 3:13 AM BROACH SETTER Gender Identity Not on file Sexual Orientation Not on file documented as of this encounter Last Filed Vital Signs Vital Sign Reading Time Taken Comments Blood Pressure 115/73 06/02/2018 11:12 AM BROACH SETTER Pulse 85 06/02/2018 11:12 AM BROACH SETTER Temperature 36.8 ??C (98.2 ??F) 06/02/2018 11:[address] Respiratory Rate 18 06/02/2018 11:12 AM BROACH SETTER Oxygen Saturation 98% 06/02/2018 11:12 AM BROACH SETTER Inhaled Oxygen Concentration - - Weight 55.4 kg (122 lb 2.2 oz) 05/26/2018 9:52 P M BROACH SETTER Height 154.9 cm (5' 0.98 ) 05/27/2018 2:06 PM CS T Body Mass Index 23.09 05/26/2018 9:52 PM BROACH SETTER documented in this encounter Discharge Summaries * Eddie Pulido MD - 06/02/2018 11:12 AM CST Inpatient Discharge Summary BRIEF OVERVIEW Admitting Provider: Sanjuanita Enamorado MD Discharge Provider: Eddie Pulido MD Primary Care Physician at Discharge: Physician No None Admission Date: 05/26/2018 Discharge Date: 06/02/2018 Primary Discharge Diagnosis: Principal Problem: Diabetic ketoacidosis without coma associated with type 1 diabetes mellitus (CMS/HCC) Active Problems: Sinus tachycardia Nausea and vomiting Sepsis due to gram-negative UTI (CMS/HCC) Secondary Discharge Diagnosis: Diabetic ketoacidosis without coma associated with type 1 diabetes mellitus (CMS/HCC) Sinus tachycardia Nausea and vomiting Sepsis due to gram-negative UTI (CMS/HCC) * No resolved hospital problems. * DETAILS OF HOSPITAL STAY Presenting Problem/History of Present Illness: Diabetic ketoacidosis without coma associated with type 1 diabetes mellitus (CMS/HCC) 22yo female with history of type 1 DM, depression disorder presenting with complaints of back pain and nausea. Denies dysuria or frequent urination, fever, chills, diarrhea, cough, shortness of breath, or palpitations. Her glucose has been under control and she takes 10 units of lantus with a sliding scale. Hospital Course: Patient was admitted to the hospital for further evaluation treatment. Patient came in with findings of diabetic ketoacidosis. Patient was started on IV fluids and GlucoStabilizer. Patient has now been transitioned back to her home dose of basal-bolus regimen. She is back on Lantus 10 units q.h.s..Patient also takes Humalog with meals based on her carb intake. Patient's hospital course was complicated by findings of nausea and vomiting. This was likely secondary to gastroparesis. Symptoms has improved with the Reglan. At this time patient will be discharged to home on oral Reglan and Zofran as needed. Gastroenterology has evaluated the patient during this hospital course, and no upper endoscopy has been recommended at this time. At this time patient ismedically stable for discharge. Test Results Pending at Discharge: Order Current Status Hepatic function panel In process Blood culture Blood Preliminary result Blood culture Blood Preliminary result Operative Procedures Performed: Other Procedures: none Pertinent Test Results: none Discharge Details Physical Exam at Discharge: Discharge Condition: good Pulse: 98 Resp: 16 BP: 109/69 Temp: 37.5 ??C (99.5 ??F) Weight: 55.4 kg (122 lb 2.2 oz) BP 109/69 (BP Location: Left arm, Patient Position: Lying) Pulse 98 Temp 37.5 ??C (99.5 ??F) (Temporal) Resp 16 Ht 154.9 cm (5' 0.98 ) Wt 55.4 kg (122 lb 2.2 oz) LMP 05/08/2018 (Exact Date) SpO2 98% BMI 23.09 kg/m?? Pertinent Exam Findings at Discharge: GEN: Alert. NAD HENT: Normocephalic. Atraumatic. CVS: RRR CHEST: Clear bilaterally ABD: soft. ND EXT: no edema Labs at discharge: Recent Results (from the past 24 hour(s)) Urinalysis reflex to microscopic Collection Time: 06/01/18 3:27 PM Result Value Ref Range Color, ur Yellow Yellow Clarity, ur Clear Clear Specific gravity, ur 1.008 (L) 1.010 - 1.025 pH, urine 7.5 Protein, ur ql Negative Negative Glucose, ur ql 1+ (A) Negative Ketones, ur 2+ (A) Negative Bilirubin, ur Negative Negative Blood, ur 3+ (A) Negative Urobilinogen, ur 0.2 mg/dL Nitrite, ur Negative Negative Leukocyte esterase, ur Negative Negative Urinalysis, microscopic only Collection Time: 06/01/18 3:27 PM Result Value Ref Range WBC, ur 0-5 0 - 5 /HPF RBC, ur >50 (A) 0 - 2 /HPF Epithelial cells, squamous, ur 1-5 0 - 5 /HPF Bacteria, ur Negative Hyaline casts, ur 1-5 0 - 10 /LPF POCT glucose Collection Time: 06/01/18 4:43 PM Result Value Ref Range Glucose, POC, bld 174 (H) 71 - 98 mg/dL POCT glucose Collection Time: 06/01/18 8:38 PM Result Value Ref Range Glucose, POC, bld 165 (H) 71 - 98 mg/dL POCT glucose Collection Time: 06/02/18 2:19 AM Result Value Ref Range Glucose, POC, bld 212 (H) 71 - 98 mg/dL Basic metabolic panel Collection Time: 06/02/18 5:17 AM Result Value Ref Range Sodium 137 135 - 145 mmol/L Potassium, pl 3.6 3.3 - 4.9 mmol/L Chloride 96 (L) 97 - 110 mmol/L CO2 26 22 - 32 mmol/L Anion Gap 15 2 - 15 mmol/L BUN 5 (L) 8 - 25 mg/dL Creatinine 0.34 (L) 0.60 - 1.10 mg/dL Glucose 217 (H) 70 - 199 mg/dL Calcium 8.5 8.5 - 10.3 mg/dL CBC without differential Collection Time: 06/02/18 5:17 AM Result Value Ref Range WBC 7.8 3.8 - 9.9 K/cumm Hgb 11.6 (L) 11.9 - 15.5 g/dL Hct 33.7 (L) 35.6 - 45.5 % Plt 309 150 - 400 K/cumm MPV 8.4 (L) 9.1 - 12.3 fL RBC 4.13 3.90 - 5.20 M/cumm MCV 81.6 81.3 - 96.4 fL MCH 28.1 27.1 - 33.3 pg MCHC 34.4 32.3 - 35.7 g/dL RDW CV 15.0 (H) 11.1 - 14.9 % RDW SD 45.1 35.7 - 48.1 fL NRBC Abs 0.00 0.00 - 0.01 K/cumm Magnesium Collection Time: 06/02/18 5:17 AM Result Value Ref Range Magnesium 1.7 1.6 - 2.4 mg/dL Phosphorus Collection Time: 06/02/18 5:17 AM Result Value Ref Range Phosphorus, pl 2.9 2.3 - 4.5 mg/dL eGFR Collection Time: 06/02/18 5:17 AM Result Value Ref Range GFR 157 mL/min/1.73 m2 POCT glucose Collection Time: 06/02/18 8:01 AM Result Value Ref Range Glucose, POC, bld 194 (H) 71 - 98 mg/dL Discharge Disposition: Discharge to home or self care Full Code Discharge Instructions: Discharge Medications: Your medication list START taking these medications ciprofloxacin 500 mg tablet Commonly known as: CIPRO Take 1 tablet (500 mg total) by mouth 2 (two) times a day for 5 days. ondansetron 4 mg tablet Commonly known as: ZOFRAN Take 1 tablet (4 mg total) by mouth every 8 (eight) hours as needed for nausea or vomiting. CHANGE how you take these medications insulin glargine 100 unit/mL (3 mL) insulin pen Commonly known as: LANERNESTOBASAGLAR Inject 10 Units under the skin daily. What changed: when to take this metoclopramide 5 mg tablet Commonly known as: REGLAN Take 1 tablet (5 mg total) by mouth every 8 (eight) hours as needed (nausea). What changed: Another medication with the same name was added. Make sure you understand how and when to take each. metoclopramide 5 mg tablet Commonly known as: REGLAN Take 1 tablet (5 mg total) by mouth 4 (four) times a day. What changed: You were already taking a medication with the same name, and this prescription was added. Make sure you understand how and when to take each. CONTINUE taking these medications insulin lispro 100 unit/mL injection Commonly known as: HumaLOG sertraline 50 mg tablet Commonly known as: ZOLOFT Outpatient Follow-Up: No future appointments. No follow-up provider specified. Time Spent on Discharge: Greater than 35 min Code status. Full code. Voice recognition software MModal Fluency Direct was used dictate and transcribe this document. Head Of Art variances may occur. Despite proofreading, typographical errors may occur. Eddie Pulido MD 06/02/2018 11:12 AM CH SETTER documented in this encounter Discharge Instructions * Discharge Instr - Other Orders* Coleman Schilling RN - 06/02/2018 11:50 AM BROACH SETTER Call 911 for any of the following: [...] or concerns about your condition or care. CH SETTER * Attachments The following attachments cannot be sent through Care Everywhere. * Diabetic Ketoacidosis (Discharge Care) (Fijian) * Ondansetron (By mouth, Into the mouth) (Fijian) * Metoclopramide (By mouth) (Fijian) * Ciprofloxacin (By mouth) (Fijian) documented in this encounter Medications at Time of Discharge ciprofloxacin (CIPRO) 500 mg tablet Take 1 tablet (500 mg total) by mouth 2 (two) times a day for 5 days. 10 tablet 06/02/2018 06/07/2018 insulin glargine (BASAGLAR KWIKPEN U-100 INSULIN) 100 unit/mL (3 mL) insulin pen Inject 10 Units under the skin nightly 05/09/2018 10/07/2018 insulin glargine (LANTUS,BASAGLAR) 100 unit/mL (3 mL) insulin penIndications:ty pe 1 diabetes mellitus Inject 10 Units under the skin daily. 0 01/04/2018 10/04/2018 insulin lispro (HumaLOG) 100 unit/mL injectionIndicati ons:type 1 diabetes mellitus Inject 1 Units under the skin 3 (three) times a day before meals. Carb ratio 1 unit of humalog per 8 carbs with meals. 10/07/2018 metoclopramide (REGLAN) 5 mg tabletIndications :nausea Take 1 tablet (5 mg total) by mouth every 8 (eight) hours as needed (nausea). 10 tablet 01/04/2018 10/04/2018 metoclopramide (REGLAN) 5 mg tablet Take 1 tablet (5 mg total) by mouth 4 (four) times a day. 30 tablet 06/02/2018 10/07/2018 ondansetron (ZOFRAN) 4 mg tablet Take 1 tablet (4 mg total) by mouth every 8 (eight) hours as needed for nausea or vomiting. 20 tablet 06/02/2018 10/07/2018 sertraline (ZOLOFT) 50 mg tablet Take 50 mg by mouth daily. 12/31/2017 10/04/2018 documented as of this encounter Ordered Prescriptions Prescription Sig Dispense Quantity Refills Last Filled Start Date End Date ciprofloxacin (CIPRO) 500 mg tablet Take 1 tablet (500 mg total) by mouth 2 (two) times a day for 5 days. 10 tablet 06/02/2018 06/07/2018 metoclopramide (REGLAN) 5 mg tablet Take 1 tablet (5 mg total) by mouth 4 (four) times a day. 30 tablet 06/02/2018 10/07/2018 ondansetron (ZOFRAN) 4 mg tablet Take 1 tablet (4 mg total) by mouth every 8 (eight) hours as needed for nausea or vomiting. 20 tablet 06/02/2018 10/07/2018 documented in this encounter Discharge Disposition Disposition Code Departure Means Destination Discharge to home or self care documented in this encounter Progress Notes * Lynsey Hurtado - 06/02/2018 8:48 AM CST [facility] Nutrition Assessment NAME:Chey Menjivar :1995 AGE:22 y.o. SEX: female ADMISSION DATE:05/26/2018, CURRENT LOS is 7 days. ENCOUNTER DATE: 06/02/18 8:48 AM REASON for ASSESSMENT: Follow Up DX: TYPE 1 DIABETES MELLITUS WITH KETOACIDOSIS Nutrition Screen What diet do you follow at home?: diabetic Have You Recently Lost Weight Without Trying?: No Poor Oral Intake for Four or More Days Prior to Admission: No Current diet order: Adult Diet Special; Consistent Carbohydrate Pt intake is inadequate. PO intakes: 0-50% ALLERGIES: Patient has no known allergies. ASPEN Malnutrition Assessment: Nutrition Focused Physical Exam Notes: Nutrition Needs Calculations: Calculated Energy Needs Using Equations Weight Used for Equation Calculations (RD Determined): 55.4 kg (122 lb 2.2 oz) Weight: 55.4 kg (122 lb 2.2 oz) Height: 154.9 cm (5' 0.98 ) Marco A Savage Equation (Overweight or Obese Patients): 1256 Equation Chosen to Use by RD: Bernardo Bliss Activity Factor: 1.1 Total Energy Needs: 1381.6 kcal Temp: 37.5 ??C (99.5 ??F) Total Energy Needs + Fever Factor: 1381.6 Estimated Protein Needs Type of Weight Used for Estimated Protein : Current Protein Needs Based on g/k.8 Total Protein Estimated Needs (gm): 44.32 Kcal/kg Type of Weight Used for Estimated Kcals: Current Kcal/k Total Kcal/kg Estimated Needs : 1662 Estimated Fluid Needs Type of Weight Used for Estimated Fluid Needs: Current Fluid Needs Based on : 30 ml/kg Total Fluid Estimated Needs: 1662 Estimated needs: ?? Total Kcal/kg Estimated Needs : 1662 based on Kcal/k. Type of Weight Used for Estimated Kcals: Current ?? MSJ Total Energy Needs: 1381.6 kcal using ?? DEBORAH State Total Energy Needs + Fever Factor: 1381.6 ?? Total Protein Estimated Needs (gm): 44.32 Protein Needs Based on g/k.8 Type of Weight Used for Estimated Protein : Current. ?? Total Fluid Estimated Needs: 1662 Fluid Needs Based on : 30 ml/kg. Objective Anthropometrics Weight: 55.4 kg (122 lb 2.2 oz) Admission Weight : 55.4 kg Weight Change: -3.56 kg (-7.86 lbs) IBW/kg (Calculated) : 47.6 kg Height: 154.9 cm (5' 0.98 ) Weight in (lb) to have BMI = 25: 132 BMI (Calculated): 23.1 3 Day I/O Summary 05/310 - 06/02 0559 In: 3363 [P.O.:480; I.V.:2883] Out: 4050 [Urine:3250] Temp: 37.5 ??C (99.5 ??F) [place] body weight: 47.8 kg (105 lb 4.8 oz) Adjusted ideal body weight: 50.8 kg (112 lb 0.5 oz) Past Medical History: Diagnosis Date ??? Depression ??? Diabetes mellitus (CMS/HCC) ??? HX OTHER MEDICAL 2011 Diabetes mellitus, type 1 Medications and Lab Review: Scheduled Meds: cefTRIAXone 1,000 mg intravenous Q24H BOB enoxaparin 40 mg subcutaneous Daily-2100 ergocalciferol 50,000 Units oral Weekly insulin glargine 12 Units subcutaneous QAM insulin lispro 1-3 Units subcutaneous Nightly insulin lispro 1-5 Units subcutaneous TID with meals insulin lispro 3 Units subcutaneous TID with meals LORazepam 0.25 mg oral Nightly metoclopramide 10 mg intravenous Q6H metoprolol 5 mg intravenous BID sertraline 50 mg oral Daily sodium chloride 0.9% 5-10 mL intra-catheter Q12H BOB Continuous Infusions: sodium chloride 0.9% 100 mL/hr Last Rate: 100 mL/hr (06/01/18 1645) Sodium Date Value Ref Range Status 06/02/2018 137 135 - 145 mmol/L Final Potassium, pl Date Value Ref Range Status 06/02/2018 3.6 3.3 - 4.9 mmol/L Final BUN Date Value Ref Range Status 06/02/2018 5 (L) 8 - 25 mg/dL Final Creatinine Date Value Ref Range Status 06/02/2018 0.34 (L) 0.60 - 1.10 mg/dL Final Phosphorus, pl Date Value Ref Range Status 06/02/2018 2.9 2.3 - 4.5 mg/dL Final Magnesium Date Value Ref Range Status 06/02/2018 1.7 1.6 - 2.4 mg/dL Final Calcium Date Value Ref Range Status 06/02/2018 8.5 8.5 - 10.3 mg/dL Final Lab Results Component Value Date HGBA1C 9.5 (H) 05/27/2018 POC Glucose: 06/01/2018: 180,168,174,165,212,217 06/02/2018: 194 Nursing Assessment: Last BM Date: 05/31/18 Bowel Sounds (All Quadrants): Active Emesis Assessment Emesis Color/Appearance: Undigested food Teodoro Scale Score: 21 Nutrition Follow-Up : 06/03/18 Nausea and vomiting continues with numerous episodes yesterday 05/22/2018. Notes suspect gastroparesis, may have EGD. Monitor diet order changes. Nutrition Diagnosis 1: Inadequate oral intake Related to: Vomiting, Nausea Evidenced by: Physical finding ?? Interventions: [place] diet preferences within the limits of nutrition care order ?? Monitoring and Evaluation: Blood glucoses, PO intake, Labs ?? Goals: Adequate nutrition to meet estimated needs by next assessment ? Nutritional Risk: high Lynsey Hurtado RD LDN CH SETTER * Eddie Pulido MD - 06/01/2018 5:23 PM CST General Medicine Progress Note Interval Events: Continues to have persistent nause and vomiting. Gi consulted. Subjective: Patient still having some nausea. Had some emesis this morning for breakfast. Abdominalpain is controlled. Will keep on clear liquid diet for now. Objective: Vitals: 24hr Min/Max: Temp Min: 36.6 ??C (97.9 ??F) Max: 37.7 ??C (99.8 ??F) Pulse Min: 60 Max: 138 BP Min: 87/63 Max: 151/99 Resp Min: 12 Max: 23 SpO2 Min: 87 % Max: 100 % Most Recent: Vitals: 06/01/18 1300 06/01/18 1400 06/01/18 1500 06/01/18 1700 BP: 130/84 137/86 145/99 142/92 BP Location: Patient Position: Pulse: 102 102 101 102 Resp: 23 20 Temp: TempSrc: SpO2: 98% 98% 98% 98% Weight: Height: Intake/Output Summary (Last 24 hours) at 06/01/18 1758 Last data filed at 06/01/18 1645 Gross per 24 hour Intake 3995 ml Output 4450 ml Net -455 ml Physical Exam: Physical Exam GEN: Alert. NAD HENT: Normocephalic. Atraumatic. CVS: RRR CHEST: Clear bilaterally ABD: soft. ND EXT: no edema Lab/Radiology/Diagnostic Review: Reviewed. Recent Results (from the past 24 hour(s)) POCT glucose Collection Time: 05/31/18 6:48 PM Result Value Ref Range Glucose, POC, bld 134 (H) 71 - 98 mg/dL Clostridium difficile assay Stool Collection Time: 05/31/18 9:07 PM Result Value Ref Range Report Final Report: Negative Clostridium difficile toxin not detected POCT glucose Collection Time: 05/31/18 9:56 PM Result Value Ref Range Glucose, POC, bld 242 (H) 71 - 98 mg/dL POCT glucose Collection Time: 06/01/18 4:21 AM Result Value Ref Range Glucose, POC, bld 107 (H) 71 - 98 mg/dL Basic metabolic panel Collection Time: 06/01/18 4:26 AM Result Value Ref Range Sodium 141 135 - 145 mmol/L Potassium, pl 3.2 (L) 3.3 - 4.9 mmol/L Chloride 105 97 - 110 mmol/L CO2 31 22 - 32 mmol/L Anion Gap 6 2 - 15 mmol/L BUN 5 (L) 8 - 25 mg/dL Creatinine 0.33 (L) 0.60 - 1.10 mg/dL Glucose 144 70 - 199 mg/dL Calcium 8.1 (L) 8.5 - 10.3 mg/dL CBC without differential Collection Time: 06/01/18 4:26 AM Result Value Ref Range WBC 6.9 3.8 - 9.9 K/cumm Hgb 10.2 (L) 11.9 - 15.5 g/dL Hct 29.9 (L) 35.6 - 45.5 % Plt 257 150 - 400 K/cumm MPV 8.6 (L) 9.1 - 12.3 fL RBC 3.63 (L) 3.90 - 5.20 M/cumm MCV 82.4 81.3 - 96.4 fL MCH 28.1 27.1 - 33.3 pg MCHC 34.1 32.3 - 35.7 g/dL RDW CV 15.2 (H) 11.1 - 14.9 % RDW SD 45.9 35.7 - 48.1 fL NRBC Abs 0.00 0.00 - 0.01 K/cumm Magnesium Collection Time: 06/01/18 4:26 AM Result Value Ref Range Magnesium 1.7 1.6 - 2.4 mg/dL Phosphorus Collection Time: 06/01/18 4:26 AM Result Value Ref Range Phosphorus, pl 3.1 2.3 - 4.5 mg/dL eGFR Collection Time: 06/01/18 4:26 AM Result Value Ref Range GFR 159 mL/min/1.73 m2 POCT glucose Collection Time: 06/01/18 7:47 AM Result Value Ref Range Glucose, POC, bld 180 (H) 71 - 98 mg/dL POCT glucose Collection Time: 06/01/18 10:48 AM Result Value Ref Range Glucose, POC, bld 168 (H) 71 - 98 mg/dL Urinalysis reflex to microscopic Collection Time: 06/01/18 3:27 PM Result Value Ref Range Color, ur Yellow Yellow Clarity, ur Clear Clear Specific gravity, ur 1.008 (L) 1.010 - 1.025 pH, urine 7.5 Protein, ur ql Negative Negative Glucose, ur ql 1+ (A) Negative Ketones, ur 2+ (A) Negative Bilirubin, ur Negative Negative Blood, ur 3+ (A) Negative Urobilinogen, ur 0.2 mg/dL Nitrite, ur Negative Negative Leukocyte esterase, ur Negative Negative Urinalysis, microscopic only Collection Time: 06/01/18 3:27 PM Result Value Ref Range WBC, ur 0-5 0 - 5 /HPF RBC, ur >50 (A) 0 - 2 /HPF Epithelial cells, squamous, ur 1-5 0 - 5 /HPF Bacteria, ur Negative Hyaline casts, ur 1-5 0 - 10 /LPF POCT glucose Collection Time: 06/01/18 4:43 PM Result Value Ref Range Glucose, POC, bld 174 (H) 71 - 98 mg/dL Assessment and Plan: Principal Problem: Diabetic ketoacidosis without coma associated with type 1 diabetes mellitus (CMS/HCC) Active Problems: Sinus tachycardia Nausea and vomiting Sepsis due to gram-negative UTI (CMS/HCC) 1. DKA. Patient now transitioned to subcu insulin. Continue monitor Accu-Cheks q.a.c. Q.h.s. And adjust with a low-dose sliding scale as needed. 2. Nausea vomiting. Likely secondary to underlying gastroparesis. Keep on Reglan. GI consulted. 3. Tachycardia. Likely 2/2 dehydration from GI loss. Start fluids and monitor. 4. UTI. Continue on IV Rocephin. Monitor. 5. DVT prophylaxis. Keep on Lovenox 40 mg subcu q.day Eddie Pulido MD Hospitalist [phone] 06/01/20185:58 PM CH SETTER * Liliane Chang MSW - 06/01/2018 1:28 PM CST Referral for dc needs. spoke with pt this am. Pt was sitting up in bed; alert and oriented. Pt stated lives with grandmother and daughter (age 2). Currently pt's daughters, is being cared by dtr'sgrandmother while pt is in hospital. 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 Pt denied any needs from at this time. Pt will return home at pr. If this is the last note consider it to be the pr summary. 06/01/18 1323 Referral Data Referral Source [place] Referral Name DCAM Referral Reason Psychosocial assessment Patient Information Primary Caregiver Self Support System Children Support system contact info (name, phone, availablity) Mother, Hoda, and Grandmother Catarina Legal Information Advance Directive Patient does not have advance directive Prior Level of Functioning Durable Medical Equipment None Living Arrangement House Behavior Oriented Income Information Income Source Employed (Pt employed full-time.) Potential Discharge Needs Discharge Potential Return home. Dialysis No Psychiatric services No CH SETTER * Dorian Morales RPh - 06/01/2018 5:47 AM CST Electrolyte monitoring performed by pharmacy on labs from 1 am labs (date & time), Na+=141 K+=3.2 Mg+=1.7 Phos=3.1 Give 40 meq of potassium chloride PO per electrolyte replacement protocol for potassium level CH SETTER * Eddie Pulido MD - 05/31/2018 4:11 PM CST General Medicine Progress Note Interval Events: No new issues noted Subjective: Patient still having some nausea. Had some emesis this morning for breakfast. Abdominalpain is controlled. Will keep on clear liquid diet for now. Objective: Vitals: 24hr Min/Max: Temp Min: 37.2 ??C (98.9 ??F) Max: 38.7 ??C (101.7 ??F) Pulse Min: 89 Max: 152 BP Min: 94/51 Max: 168/117 Resp Min: 11 Max: 26 SpO2 Min: 93 % Max: 100 % Most Recent: Vitals: 05/31/18 0600 05/31/18 0800 05/31/18 1000 05/31/18 1040 BP: 114/80 124/83 152/94 152/94 BP Location: Left arm Left arm Patient Position: Lying Sitting Pulse: 89 105 (!) 152 (!) 128 Resp: 20 20 11 Temp: 37.2 ??C (98.9 ??F) TempSrc: Temporal SpO2: 97% 97% 97% Weight: Height: Intake/Output Summary (Last 24 hours) at 05/31/18 1208 Last data filed at 05/31/18 0800 Gross per 24 hour Intake 840 ml Output 2500 ml Net -1660 ml Physical Exam: Physical Exam GEN: Alert. NAD HENT: Normocephalic. Atraumatic. CVS: RRR CHEST: Clear bilaterally ABD: soft. ND EXT: no edema Lab/Radiology/Diagnostic Review: Reviewed. Recent Results (from the past 24 hour(s)) Potassium Collection Time: 05/30/18 1:02 PM Result Value Ref Range Potassium, pl 3.4 3.3 - 4.9 mmol/L POCT glucose Collection Time: 05/30/18 1:26 PM Result Value Ref Range Glucose, POC, bld 112 (H) 71 - 98 mg/dL POCT glucose Collection Time: 05/30/18 2:26 PM Result Value Ref Range Glucose, POC, bld 103 (H) 71 - 98 mg/dL Blood culture Blood Collection Time: 05/30/18 3:21 PM Result Value Ref Range Report Preliminary Report: No growth to date. POCT glucose Collection Time: 05/30/18 4:03 PM Result Value Ref Range Glucose, POC, bld 128 (H) 71 - 98 mg/dL Blood culture Blood Collection Time: 05/30/18 4:12 PM Result Value Ref Range Report Preliminary Report: No growth to date. POCT glucose Collection Time: 05/30/18 5:36 PM Result Value Ref Range Glucose, POC, bld 153 (H) 71 - 98 mg/dL POCT glucose Collection Time: 05/30/18 8:42 PM Result Value Ref Range Glucose, POC, bld 146 (H) 71 - 98 mg/dL Basic metabolic panel Collection Time: 05/31/18 6:11 AM Result Value Ref Range Sodium 139 135 - 145 mmol/L Potassium, pl 3.3 3.3 - 4.9 mmol/L Chloride 99 97 - 110 mmol/L CO2 27 22 - 32 mmol/L Anion Gap 13 2 - 15 mmol/L BUN 5 (L) 8 - 25 mg/dL Creatinine 0.34 (L) 0.60 - 1.10 mg/dL Glucose 247 (H) 70 - 199 mg/dL Calcium 8.6 8.5 - 10.3 mg/dL CBC without differential Collection Time: 05/31/18 6:11 AM Result Value Ref Range WBC 6.4 3.8 - 9.9 K/cumm Hgb 11.7 (L) 11.9 - 15.5 g/dL Hct 34.1 (L) 35.6 - 45.5 % Plt 308 150 - 400 K/cumm MPV 8.4 (L) 9.1 - 12.3 fL RBC 4.22 3.90 - 5.20 M/cumm MCV 80.8 (L) 81.3 - 96.4 fL MCH 27.7 27.1 - 33.3 pg MCHC 34.3 32.3 - 35.7 g/dL RDW CV 15.3 (H) 11.1 - 14.9 % RDW SD 45.1 35.7 - 48.1 fL NRBC Abs 0.00 0.00 - 0.01 K/cumm Magnesium Collection Time: 05/31/18 6:11 AM Result Value Ref Range Magnesium 1.6 1.6 - 2.4 mg/dL Phosphorus Collection Time: 05/31/18 6:11 AM Result Value Ref Range Phosphorus, pl 2.9 2.3 - 4.5 mg/dL eGFR Collection Time: 05/31/18 6:11 AM Result Value Ref Range GFR 157 mL/min/1.73 m2 POCT glucose Collection Time: 05/31/18 7:59 AM Result Value Ref Range Glucose, POC, bld 274 (H) 71 - 98 mg/dL Assessment and Plan: Principal Problem: Diabetic ketoacidosis without coma associated with type 1 diabetes mellitus (CMS/HCC) Active Problems: Sinus tachycardia Nausea and vomiting Sepsis due to gram-negative UTI (CMS/[facility]) 1. DKA. Patient now transitioned to subcu insulin. Continue monitor Accu-Cheks q.a.c. Q.h.s. And adjust with a low-dose sliding scale as needed. 2. Nausea vomiting. Likely secondary to underlying gastroparesis. Keep on Reglan. 3. UTI. Continue on IV Rocephin. Monitor. 4. DVT prophylaxis. Keep on Lovenox 40 mg subcu q.day Eddie Pulido MD Hospitalist [phone] 05/31/201812:08 PM CH SETTER * Lucinda Woodward, RD - 05/31/2018 2:18 PM CST [facility] Nutrition Assessment NAME:Chey Menjivar :1995 AGE:22 y.o. SEX: female ADMISSION DATE:05/26/2018, CURRENT LOS is 5 days. ENCOUNTER DATE: 05/31/18 2:18 PM REASON for ASSESSMENT: Follow Up DX: TYPE 1 DIABETES MELLITUS WITH KETOACIDOSIS Nutrition Screen What diet do you follow at home?: diabetic Have You Recently Lost Weight Without Trying?: No Poor Oral Intake for Four or More Days Prior to Admission: No Current diet order: Adult Diet Special; Consistent Carbohydrate Pt intake is inadequate. PO intakes: 0-50% of meals. ALLERGIES: Patient has no known allergies. ASPEN Malnutrition Assessment: Nutrition Focused Physical Exam Notes: Nutrition Needs Calculations: Calculated Energy Needs Using Equations Weight Used for Equation Calculations (RD Determined): 55.4 kg (122 lb 2.2 oz) Weight: 55.4 kg (122 lb 2.2 oz) Height: 154.9 cm (5' 0.98 ) Marco A Savage Equation (Overweight or Obese Patients): 1256 Equation Chosen to Use by RD: Bernardo Bliss Activity Factor: 1.1 Total Energy Needs: 1381.6 kcal Temp: 37.2 ??C (98.9 ??F) Total Energy Needs + Fever Factor: 1381.6 Estimated Protein Needs Type of Weight Used for Estimated Protein : Current Protein Needs Based on g/k.8 Total Protein Estimated Needs (gm): 44.32 Kcal/kg Type of Weight Used for Estimated Kcals: Current Kcal/k Total Kcal/kg Estimated Needs : 1662 Estimated Fluid Needs Type of Weight Used for Estimated Fluid Needs: Current Fluid Needs Based on : 30 ml/kg Total Fluid Estimated Needs: 1662 Estimated Carbohydrate Needs Type of Weight Used for Estimated Carbohydrate Needs: Current Recommended Carbohydrates for Breakfast (gm) : 45 Recommended Carbohydrates for Lunch (gm) : 60 Recommended Carbohydrates for Dinner (gm) : 60 Recommended Carbohydrates for HS Snack (gm) : 15 Total Daily Carbohydrates Recommended (gm): 180 Estimated needs: ?? Total Kcal/kg Estimated Needs : 1662 based on Kcal/k. Type of Weight Used for Estimated Kcals: Current ?? [facility] Total Energy Needs: 1381.6 kcal using ?? [facility] Total Energy Needs + Fever Factor: 1381.6 ?? Total Protein Estimated Needs (gm): 44.32 Protein Needs Based on g/k.8 Type of Weight Used for Estimated Protein : Current. ?? Total Fluid Estimated Needs: 1662 Fluid Needs Based on : 30 ml/kg. Objective Anthropometrics Weight: 55.4 kg (122 lb 2.2 oz) Admission Weight : 55.4 kg Weight Change: -3.56 kg (-7.86 lbs) IBW/kg (Calculated) : 47.6 kg Height: 154.9 cm (5' 0.98 ) Weight in (lb) to have BMI = 25: 132 BMI (Calculated): 23.1 3 Day I/O Summary 05/29 1900 - 05/31 0659 In: 5256 [P.O.:570; I.V.:4562] Out: 5100 [Urine:5100] Temp: 37.2 ??C (98.9 ??F) [place] body weight: 47.8 kg (105 lb 4.8 oz) Adjusted ideal body weight: 50.8 kg (112 lb 0.5 oz) Past Medical History: Diagnosis Date ??? Depression ??? Diabetes mellitus (CMS/HCC) ??? HX OTHER MEDICAL 2011 Diabetes mellitus, type 1 Medications and Lab Review: Scheduled Meds: enoxaparin 40 mg subcutaneous Daily-2100 ergocalciferol 50,000 Units oral Weekly insulin glargine 12 Units subcutaneous QAM insulin lispro 1-3 Units subcutaneous Nightly insulin lispro 1-5 Units subcutaneous TID with meals insulin lispro 3 Units subcutaneous TID with meals prochlorperazine 5 mg intravenous QID (AC & HS) sertraline 50 mg oral Daily sodium chloride 0.9% 5-10 mL intra-catheter Q12H BOB Continuous Infusions: sodium chloride 0.9% 100 mL/hr Last Rate: 100 mL/hr (05/31/18 1041) Sodium Date Value Ref Range Status 05/31/2018 139 135 - 145 mmol/L Final Potassium, pl Date Value Ref Range Status 05/31/2018 3.3 3.3 - 4.9 mmol/L Final BUN Date Value Ref Range Status 05/31/2018 5 (L) 8 - 25 mg/dL Final Creatinine Date Value Ref Range Status 05/31/2018 0.34 (L) 0.60 - 1.10 mg/dL Final Phosphorus, pl Date Value Ref Range Status 05/31/2018 2.9 2.3 - 4.5 mg/dL Final Magnesium Date Value Ref Range Status 05/31/2018 1.6 1.6 - 2.4 mg/dL Final Calcium Date Value Ref Range Status 05/31/2018 8.6 8.5 - 10.3 mg/dL Final Lab Results Component Value Date HGBA1C 9.5 (H) 05/27/2018 POC Glucose: 181(05/31) Nursing Assessment: Last BM Date: 05/30/18 Bowel Sounds (All Quadrants): Active Emesis Assessment Emesis Color/Appearance: Green, Other (Comment) (green, watery) Teodoro Scale Score: 19 Nutrition Follow-Up : 06/06/18 Nutrition Diagnosis 1: Inadequate oral intake Related to: Vomiting, Nausea Evidenced by: Physical finding ?? Interventions: [place] diet preferences within the limits of nutrition care order ?? Monitoring and Evaluation: Blood glucoses, PO intake, Labs ?? Goals: Adequate nutrition to meet estimated needs by next assessment ? Nutritional Risk: medium Follow up date: 06/03/[address],LDN CH SETTER * Juana Barth - 05/30/2018 3:12 PM CST SC: Pt very drowsy, and not up for talking too much. Did verbalize that she is willing for continuing visits. Will follow-up tomorrow (05/31). CH SETTER * Yolette Whyte RN - 05/30/2018 11:35 AM CST Chey Menjivar [id number] Sanjuanita Enamorado MD Pre-Education Assessment Visit Type: Initial Introduction: ID verified, Alert/ oriented x 4, Education provided with patient approval, Patient present and able to participate Provider: Medical/Hydroelectric Station Operator/PCP (Carrie Joseph NP [facility] ) Treatment Prior To Admission: Insulin, Blood glucose monitoring Knowledge Base: Experienced (diabetes since age 13 - according to patient) Home Testin-2 times per day Adherence To: (S) Insulin regimen, Blood Glucose Testing Regimen, Seldom misses ([facility] seldom misses insulin or blood sugars) Exercise Habits: Active Hypoglycemia: Hardly ever (denies hypoglycemia) Home Supplies: No assistance needed [employer] per EMR- Pawan Ram MD (Attending) [id number] [address] Diabetes Management Education Provided: Please see the Patient Education Activity patient reports has had diabetes since age13. States is not currently is not under care of coffee brewer and is looking for a new one. [facility] Care everywhere indicates patient has been under the careof [facility] coffee brewer. Insulin was refilled on 05/09/[address] Pawan Ram. She states she has at-slim insulin pump at home but can not use it because the doctor does not want her on it. When asked why? She states she does not know. According to the EMR, the insulin pump was removed when she was with her 2 year old daughter and the pump has not been restarted. I encouraged her to investigate returning to pump therapy. I gave her a list of 4 local coffee brewer to consider for establishing care. Daniel when discussing her 2 year old. Reports has DKA about 3-4 times/year. Per EMR- DKA admission on 01.03.17, 10, 11.28.17 and on 12.25.17. Was treated at a pediatric facility until the age of 19. Yolette Whyte RN, Replenisher 05/30/2018 11:35 AM 7 CH SETTER CH SETTER CH SETTER * Josette Sloan MD - 05/30/2018 8:16 AM CST General Medicine Daily Progress SUBJECTIVE Chief complaint: follow-up of diabetes Interval History: Nausea and vomiting have resolved since yesterday Had a bowel movement this morning Denies burning with urination Feels better OBJECTIVE Vitals: 24hr Min/Max: Temp Min: 36.6 ??C (97.9 ??F) Max: 37.2 ??C (98.9 ??F) Pulse Min: 66 Max: 140 BP Min: 81/52 Max: 136/95 Resp Min: 14 Max: 23 SpO2 Min: 83 % Max: 100 % Most Recent : Vitals: 05/30/18 0700 BP: 99/60 Pulse: 81 Resp: 15 Temp: SpO2: 99% I/O last 2 completed shifts: In: 5325.6 [I.V.:5201.6; IV Piggyback:124] Out: 2550 [Urine:2550] No intake/output data recorded. Physical Exam: General: awake, alert, oriented to person, place, time Eyes: no scleral icterus Neck: supple Pharynx: No gross oral lesion Lungs clear to auscultation without wheezes or rales Heart: [id number], tachycardic Abd: +BS, mild epigastric and suprapubic tenderness to palpation, Non distended Lower Ext: no edema Neuro: No new gross deficits appreciated Musculoskeletal: no gross joint erythema, edema, tenderness Psychiatric: normal affect and mood Lines: right picc line, placed on 05/29 Lab/Current Medication Review: Recent Results (from the past 24 hour(s)) POCT glucose Collection Time: 05/29/18 9:13 AM Result Value Ref Range Glucose, POC, bld 263 (H) 71 - 98 mg/dL POCT glucose Collection Time: 05/29/18 10:32 AM Result Value Ref Range Glucose, POC, bld 287 (H) 71 - 98 mg/dL POCT glucose Collection Time: 05/29/18 11:36 AM Result Value Ref Range Glucose, POC, bld 197 (H) 71 - 98 mg/dL Basic metabolic panel Collection Time: 05/29/18 11:44 AM Result Value Ref Range Sodium 135 135 - 145 mmol/L Potassium, pl 3.7 3.3 - 4.9 mmol/L Chloride 101 97 - 110 mmol/L CO2 15 (L) 22 - 32 mmol/L Anion Gap 19 (H) 2 - 15 mmol/L BUN 9 8 - 25 mg/dL Creatinine 0.57 (L) 0.60 - 1.10 mg/dL Glucose 237 (H) 70 - 199 mg/dL Calcium 9.1 8.5 - 10.3 mg/dL Magnesium Collection Time: 05/29/18 11:44 AM Result Value Ref Range Magnesium 1.8 1.6 - 2.4 mg/dL Phosphorus Collection Time: 05/29/18 11:44 AM Result Value Ref Range Phosphorus, pl 2.3 2.3 - 4.5 mg/dL eGFR Collection Time: 05/29/18 11:44 AM Result Value Ref Range GFR 133 mL/min/1.73 m2 POCT glucose Collection Time: 05/29/18 12:34 PM Result Value Ref Range Glucose, POC, bld 182 (H) 71 - 98 mg/dL POCT glucose Collection Time: 05/29/18 1:39 PM Result Value Ref Range Glucose, POC, bld 148 (H) 71 - 98 mg/dL POCT glucose Collection Time: 05/29/18 2:37 PM Result Value Ref Range Glucose, POC, bld 141 (H) 71 - 98 mg/dL Basic metabolic panel Collection Time: 05/29/18 3:54 PM Result Value Ref Range Sodium 137 135 - 145 mmol/L Potassium, pl 3.3 3.3 - 4.9 mmol/L Chloride 104 97 - 110 mmol/L CO2 20 (L) 22 - 32 mmol/L Anion Gap 13 2 - 15 mmol/L BUN 9 8 - 25 mg/dL Creatinine 0.43 (L) 0.60 - 1.10 mg/dL Glucose 113 70 - 199 mg/dL Calcium 8.6 8.5 - 10.3 mg/dL Magnesium Collection Time: 05/29/18 3:54 PM Result Value Ref Range Magnesium 1.7 1.6 - 2.4 mg/dL Phosphorus Collection Time: 05/29/18 3:54 PM Result Value Ref Range Phosphorus, pl 1.9 (L) 2.3 - 4.5 mg/dL eGFR Collection Time: 05/29/18 3:54 PM Result Value Ref Range GFR 145 mL/min/1.73 m2 POCT glucose Collection Time: 05/29/18 4:00 PM Result Value Ref Range Glucose, POC, bld 98 71 - 98 mg/dL POCT glucose Collection Time: 05/29/18 5:19 PM Result Value Ref Range Glucose, POC, bld 82 71 - 98 mg/dL POCT glucose Collection Time: 05/29/18 6:34 PM Result Value Ref Range Glucose, POC, bld 77 71 - 98 mg/dL POCT glucose Collection Time: 05/29/18 7:51 PM Result Value Ref Range Glucose, POC, bld 83 71 - 98 mg/dL Basic metabolic panel Collection Time: 05/29/18 8:18 PM Result Value Ref Range Sodium 136 135 - 145 mmol/L Potassium, pl 3.3 3.3 - 4.9 mmol/L Chloride 103 97 - 110 mmol/L CO2 19 (L) 22 - 32 mmol/L Anion Gap 13 2 - 15 mmol/L BUN 7 (L) 8 - 25 mg/dL Creatinine 0.40 (L) 0.60 - 1.10 mg/dL Glucose 112 70 - 199 mg/dL Calcium 8.3 (L) 8.5 - 10.3 mg/dL Magnesium Collection Time: 05/29/18 8:18 PM Result Value Ref Range Magnesium 1.6 1.6 - 2.4 mg/dL Phosphorus Collection Time: 05/29/18 8:18 PM Result Value Ref Range Phosphorus, pl 2.2 (L) 2.3 - 4.5 mg/dL eGFR Collection Time: 05/29/18 8:18 PM Result Value Ref Range GFR 149 mL/min/1.73 m2 POCT glucose Collection Time: 05/29/18 8:56 PM Result Value Ref Range Glucose, POC, bld 96 71 - 98 mg/dL POCT glucose Collection Time: 05/29/18 10:06 PM Result Value Ref Range Glucose, POC, bld 111 (H) 71 - 98 mg/dL POCT glucose Collection Time: 05/29/18 11:03 PM Result Value Ref Range Glucose, POC, bld 132 (H) 71 - 98 mg/dL POCT glucose Collection Time: 05/30/18 12:10 AM Result Value Ref Range Glucose, POC, bld 129 (H) 71 - 98 mg/dL Basic metabolic panel Collection Time: 05/30/18 12:13 AM Result Value Ref Range Sodium 137 135 - 145 mmol/L Potassium, pl 2.9 (Critical) 3.3 - 4.9 mmol/L Chloride 104 97 - 110 mmol/L CO2 22 22 - 32 mmol/L Anion Gap 12 2 - 15 mmol/L BUN 6 (L) 8 - 25 mg/dL Creatinine 0.37 (L) 0.60 - 1.10 mg/dL Glucose 137 70 - 199 mg/dL Calcium 8.2 (L) 8.5 - 10.3 mg/dL Magnesium Collection Time: 05/30/18 12:13 AM Result Value Ref Range Magnesium 1.6 1.6 - 2.4 mg/dL Phosphorus Collection Time: 05/30/18 12:13 AM Result Value Ref Range Phosphorus, pl 2.3 2.3 - 4.5 mg/dL eGFR Collection Time: 05/30/18 12:13 AM Result Value Ref Range GFR 153 mL/min/1.73 m2 POCT glucose Collection Time: 05/30/18 1:05 AM Result Value Ref Range Glucose, POC, bld 134 (H) 71 - 98 mg/dL POCT glucose Collection Time: 05/30/18 2:08 AM Result Value Ref Range Glucose, POC, bld 158 (H) 71 - 98 mg/dL POCT glucose Collection Time: 05/30/18 3:06 AM Result Value Ref Range Glucose, POC, bld 159 (H) 71 - 98 mg/dL POCT glucose Collection Time: 05/30/18 4:06 AM Result Value Ref Range Glucose, POC, bld 119 (H) 71 - 98 mg/dL POCT glucose Collection Time: 05/30/18 5:28 AM Result Value Ref Range Glucose, POC, bld 91 71 - 98 mg/dL POCT glucose Collection Time: 05/30/18 6:31 AM Result Value Ref Range Glucose, POC, bld 89 71 - 98 mg/dL POCT glucose Collection Time: 05/30/18 7:39 AM Result Value Ref Range Glucose, POC, bld 120 (H) 71 - 98 mg/dL Current Facility-Administered Medications Medication Dose Route Frequency Provider Last Rate Last Dose ??? cefTRIAXone (ROCEPHIN) 1000 mg/10 mL in sterile water (premix) 1,000 mg 1,000 mg intravenous Q24H BOB Josette Sloan MD 120 mL/hr at 05/29/18 0917 1,000 mg at 05/29/18 09 ??? dextrose (concentrated solution) 50 % CONCENTRATED solution 1-50 g 1-50 g intravenous PRN Josette Sloan MD ??? dextrose gel in packet 15 g 15 g oral Q15 Min PRN Josette Sloan MD Or ??? dextrose (D10W) 10% bolus 250 mL 250 mL intravenous Q15 Min PRDana Sloan MD Or ??? dextrose (concentrated solution) 50 % CONCENTRATED solution 25 g 25 g intravenous Q15 Min PRDana Sloan MD ??? dextrose 5% infusion 75 mL/hr intravenous Continuous Josette Sloan MD 125 mL/hr at 05/30/18101 125 mL/hr at 05/30/18101 ??? enoxaparin (LOVENOX) syringe 40 mg 40 mg subcutaneous Daily-2100 Pato Haney MD 40 mg at 05/29/181999 ??? ergocalciferol (VITAMIN D) capsule 50,000 Units 50,000 Units oral Weekly Josette Sloan MD ??? glucagon injection 1 mg 1 mg intramuscular Q30 Min PRN Josette Sloan MD ??? insulin glargine (LANTUS,BASAGLAR) pen injection 12 Units 12 Units subcutaneous QAM Josette Chun MD ??? insulin lispro (HumaLOG) pen injection 1-3 Units 1-3 Units subcutaneous Nightly Josette Sloan MD ??? insulin lispro (HumaLOG) pen injection 1-5 Units 1-5 Units subcutaneous TID with meals VeronicaO. Nathalia MD ??? insulin lispro (HumaLOG) pen injection 3 Units 3 Units subcutaneous TID with meals Josette Sloan MD ??? insulin regular (HumuLIN R, NovoLIN R) 100 Units in sodium chloride 0.9% 100 mL (1 Units/mL) infusion 0-30 Units/hr intravenous Titrated Josette Sloan MD 0.3 mL/hr at 05/30/18 0529 0.3 Units/hr at 05/30/18 0529 ??? insulin regular bolus from bag 1-10 Units 1-10 Units intravenous PRN Josette Sloan MD ??? ondansetron (ZOFRAN) injection 4 mg 4 mg intravenous Q6H PRN Ayana Prado MD 4 mg at 05/27/18 0449 ??? potassium, sodium phosphates (PHOS-NAK) 280-160-250 mg packet 1 packet 1 packet oral Q4H Josette Sloan MD ??? prochlorperazine (COMPAZINE) injection 10 mg 10 mg intravenous Q6H Josette Sloan MD 10 mg at 05/30/18 0212 ??? sertraline (ZOLOFT) tablet 50 mg 50 mg oral Daily Josette Sloan MD ??? sodium chloride 0.9% flush 5-10 mL 5-10 mL intra-catheter Q12H BOB Josette Sloan MD 10 mL at 05/29/181999 ??? sodium chloride 0.9% flush 5-20 mL 5-20 mL intra-catheter PRN Josette Sloan MD A/P: Diabetic ketoacidosis without coma associated with type 1 diabetes mellitus (CMS/HCC), recurrent Sinus tachycardia Nausea and vomiting likely due to diabetic gastroparesis Sepsis due to gram-negative UTI (CMS/HCC), ecoli, present on admission Hypokalemia ?? Gap is closed. Start lantus and humalog as ordered. D/c d5w and insulin drip 2 hours after lantus has been given Diabetic diet. Continue IV compazine. Had minimal improvement of nausea, vomiting with scheduled IVreglan CT chest is negative for PE or pneumonia. CT abdomen/pelvis reviewed and consistent with possible gastroparesis. She has no abdominal pain or diarrhea to suggest gastroenteritis. She has ruled out for urinary retention K was repleted and will repeat lab this afternnon IV rocephin, day 4/5 for UTI Anticipate discharge in 1-2 days depending on clinical course Josette Sloan MD 05/30/2018 8:16 AM CH SETTER * Shirlene Hyde [facility] - 05/30/2018 2:11 AM CST K= 2.9 and Phos = 2.3 Give Kcl 40meq ivpb and Phos 1 tab x3 doses CH SETTER * Josette Sloan MD - 05/29/2018 9:12 AM CST General Medicine Daily Progress SUBJECTIVE Chief complaint: follow-up of diabetes Interval History: Has recurrent nausea and vomiting Denies abdominal pain Refused iv reglan overnight lantus was resumed when AG was 16 and patient has been restarted back on insulin drip this morning On telemetry, she is in sinus tachycardia. Denies cough, shortness of breath. Afebrile and has no chills OBJECTIVE Vitals: 24hr Min/Max: Temp Min: 36.5 ??C (97.7 ??F) Max: 37.5 ??C (99.5 ??F) Pulse Min: 96 Max: 127 BP Min: 103/58 Max: 149/91 Resp Min: 12 Max: 26 SpO2 Min: 98 % Max: 100 % Most Recent : Vitals: 05/29/18 0600 BP: 121/84 Pulse: 115 Resp: 26 Temp: SpO2: 99% I/O last 2 completed shifts: In: 4589.2 [P.O.:500; I.V.:4089.2] Out: 5800 [Urine:5800] No intake/output data recorded. Physical Exam: General: awake, alert, oriented to person, place, time Eyes: no scleral icterus Neck: supple Pharynx: No gross oral lesion Lungs clear to auscultation without wheezes or rales Heart: [id number], tachycardic Abd: +BS, mild epigastric and suprapubic tenderness to palpation, Non distended Lower Ext: trace edema of upper extremities Neuro: No new gross deficits appreciated Musculoskeletal: no gross joint erythema, edema, tenderness Psychiatric: normal affect and mood Lab/Current Medication Review: Recent Results (from the past 24 hour(s)) Lactate Collection Time: 05/28/18 9:50 AM Result Value Ref Range Lactate 1.1 0.7 - 2.0 mmol/L Blood gas, arterial Collection Time: 05/28/18 9:50 AM Result Value Ref Range pH, Art POC 7.39 7.35 - 7.45 PCO2, Arterial 22 (L) 35 - 45 mmHg PO2, Arterial 130 (H) 83 - 108 mmHg HCO3 Art (Calculated) 13 (L) 20 - 30 mmol/L BE, art -10 mmol/L O2 Sat Art (Measured) 99 (H) 90 - 95 % POCT glucose Collection Time: 05/28/18 10:22 AM Result Value Ref Range Glucose, POC, bld 182 (H) 71 - 98 mg/dL POCT glucose Collection Time: 05/28/18 11:14 AM Result Value Ref Range Glucose, POC, bld 148 (H) 71 - 98 mg/dL POCT glucose Collection Time: 05/28/18 12:27 PM Result Value Ref Range Glucose, POC, bld 137 (H) 71 - 98 mg/dL Basic metabolic panel Collection Time: 05/28/18 12:51 PM Result Value Ref Range Sodium 135 135 - 145 mmol/L Potassium, pl 3.2 (L) 3.3 - 4.9 mmol/L Chloride 100 97 - 110 mmol/L CO2 18 (L) 22 - 32 mmol/L Anion Gap 16 (H) 2 - 15 mmol/L BUN 6 (L) 8 - 25 mg/dL Creatinine 0.37 (L) 0.60 - 1.10 mg/dL Glucose 138 70 - 199 mg/dL Calcium 8.6 8.5 - 10.3 mg/dL Magnesium Collection Time: 05/28/18 12:51 PM Result Value Ref Range Magnesium 1.6 1.6 - 2.4 mg/dL Phosphorus Collection Time: 05/28/18 12:51 PM Result Value Ref Range Phosphorus, pl 2.6 2.3 - 4.5 mg/dL eGFR Collection Time: 05/28/18 12:51 PM Result Value Ref Range GFR 153 mL/min/1.73 m2 POCT glucose Collection Time: 05/28/18 1:17 PM Result Value Ref Range Glucose, POC, bld 122 (H) 71 - 98 mg/dL POCT glucose Collection Time: 05/28/18 2:24 PM Result Value Ref Range Glucose, POC, bld 102 (H) 71 - 98 mg/dL POCT glucose Collection Time: 05/28/18 3:22 PM Result Value Ref Range Glucose, POC, bld 88 71 - 98 mg/dL Basic metabolic panel Collection Time: 05/28/18 4:03 PM Result Value Ref Range Sodium 136 135 - 145 mmol/L Potassium, pl 3.3 3.3 - 4.9 mmol/L Chloride 100 97 - 110 mmol/L CO2 20 (L) 22 - 32 mmol/L Anion Gap 16 (H) 2 - 15 mmol/L BUN 5 (L) 8 - 25 mg/dL Creatinine 0.31 (L) 0.60 - 1.10 mg/dL Glucose 103 70 - 199 mg/dL Calcium 8.5 8.5 - 10.3 mg/dL Magnesium Collection Time: 05/28/18 4:03 PM Result Value Ref Range Magnesium 1.7 1.6 - 2.4 mg/dL Phosphorus Collection Time: 05/28/18 4:03 PM Result Value Ref Range Phosphorus, pl 2.7 2.3 - 4.5 mg/dL Protime-INR Collection Time: 05/28/18 4:03 PM Result Value Ref Range PT 12.9 9.5 - 13.0 sec INR 1.14 0.90 - 1.20 eGFR Collection Time: 05/28/18 4:03 PM Result Value Ref Range GFR 162 mL/min/1.73 m2 POCT glucose Collection Time: 05/28/18 4:28 PM Result Value Ref Range Glucose, POC, bld 91 71 - 98 mg/dL POCT glucose Collection Time: 05/28/18 5:32 PM Result Value Ref Range Glucose, POC, bld 95 71 - 98 mg/dL POCT glucose Collection Time: 05/28/18 9:11 PM Result Value Ref Range Glucose, POC, bld 175 (H) 71 - 98 mg/dL Lipase Collection Time: 05/29/18 4:36 AM Result Value Ref Range Lipase 9 (L) 10 - 99 Units/L Basic metabolic panel Collection Time: 05/29/18 4:39 AM Result Value Ref Range Sodium 136 135 - 145 mmol/L Potassium, pl 4.1 3.3 - 4.9 mmol/L Chloride 98 97 - 110 mmol/L CO2 12 (L) 22 - 32 mmol/L Anion Gap 26 (H) 2 - 15 mmol/L BUN 7 (L) 8 - 25 mg/dL Creatinine 0.48 (L) 0.60 - 1.10 mg/dL Glucose 305 (H) 70 - 199 mg/dL Calcium 9.1 8.5 - 10.3 mg/dL Magnesium Collection Time: 05/29/18 4:39 AM Result Value Ref Range Magnesium 1.7 1.6 - 2.4 mg/dL Phosphorus Collection Time: 05/29/18 4:39 AM Result Value Ref Range Phosphorus, pl 2.6 2.3 - 4.5 mg/dL CBC without differential Collection Time: 05/29/18 4:39 AM Result Value Ref Range WBC 14.9 (H) 3.8 - 9.9 K/cumm Hgb 13.5 11.9 - 15.5 g/dL Hct 40.1 35.6 - 45.5 % Plt 430 (H) 150 - 400 K/cumm MPV 8.6 (L) 9.1 - 12.3 fL RBC 4.91 3.90 - 5.20 M/cumm MCV 81.7 81.3 - 96.4 fL MCH 27.5 27.1 - 33.3 pg MCHC 33.7 32.3 - 35.7 g/dL RDW CV 15.6 (H) 11.1 - 14.9 % RDW SD 46.8 35.7 - 48.1 fL NRBC Abs 0.00 0.00 - 0.01 K/cumm eGFR Collection Time: 05/29/18 4:39 AM Result Value Ref Range GFR 140 mL/min/1.73 m2 Current Facility-Administered Medications Medication Dose Route Frequency Provider Last Rate Last Dose ??? cefTRIAXone (ROCEPHIN) 1000 mg/10 mL in sterile water (premix) 1,000 mg 1,000 mg intravenous Q24H [facility] Josette Sloan MD 120 mL/hr at 05/28/18 0835 1,000 mg at 05/28/18 08 ??? dextrose (concentrated solution) 50 % CONCENTRATED solution 1-50 g 1-50 g intravenous PRN Josette Sloan MD ??? dextrose 5% infusion 100 mL/hr intravenous Continuous Josette Sloan MD ??? enoxaparin (LOVENOX) syringe 40 mg 40 mg subcutaneous Daily-2100 Pato Haney MD 40 mg at 05/28/182110 ??? ergocalciferol (VITAMIN D) capsule 50,000 Units 50,000 Units oral Weekly Josette Sloan MD ??? insulin regular (HumuLIN R, NovoLIN R) 100 Units in sodium chloride 0.9% 100 mL (1 Units/mL) infusion 0-30 Units/hr intravenous Titrated Josette Sloan MD ??? insulin regular bolus from bag 1-10 Units 1-10 Units intravenous PRN Josette Sloan MD ??? Lactated Ringer's (LR) infusion 100 mL/hr intravenous Continuous Josette Sloan MD 100 mL/hr at 05/28/182314 100 mL/hr at 05/28/182314 ??? ondansetron (ZOFRAN) injection 4 mg 4 mg intravenous Q6H PRN Ayana Prado MD 4 mg at 05/27/18 3179 ??? prochlorperazine (COMPAZINE) injection 10 mg 10 mg intravenous Q6H Josette Sloan MD ??? sertraline (ZOLOFT) tablet 50 mg 50 mg oral Daily Josette Sloan MD A/P: Diabetic ketoacidosis without coma associated with type 1 diabetes mellitus (CMS/HCC), recurrent Sinus tachycardia Nausea and vomiting likely due to diabetic gastroparesis Sepsis due to gram-negative UTI (CMS/HCC), ecoli, present on admission Hypophosphatemia, hypokalemia - resolved ?? Keep NPO. Resume insulin drip with IV fluids as ordered. Electrolytes every 4 hours IV rocephin, day 3 pending urine culture. Wbc is stable. Follow-up on ct as ordered. Lipase is pending. Change iv reglan to compazine and continue prn IV zofran SC lovenox for vte prophylaxis Josette Sloan MD 05/29/2018 9:12 AM CH SETTER * Yolette Whyte RN - 05/28/2018 11:29 AM CST Patient asleep. Talked with bedside nurse. Back on insulin drip. Patient has been really nauseated.Will try again on Wednesday. CH SETTER * Josette Sloan MD - 05/28/2018 8:45 AM CST General Medicine Daily Progress SUBJECTIVE Chief complaint: follow-up of diabetes Interval History: She was started on lantus this morning and currently back in DKA based on AM labs Feels nauseous but refused reglan this morning Denies abdominal pain Still reports back pain OBJECTIVE Vitals: 24hr Min/Max: Temp Min: 36.8 ??C (98.3 ??F) Max: 37 ??C (98.6 ??F) Pulse Min: 99 Max: 123 BP Min: 97/53 Max: 132/76 Resp Min: 13 Max: 25 SpO2 Min: 99 % Max: 100 % Most Recent : Vitals: 05/28/18 0200 BP: Pulse: Resp: 20 Temp: 36.9 ??C (98.5 ??F) SpO2: I/O last 2 completed shifts: In: 6891 [P.O.:480; I.V.:6087; IV Piggyback:324] Out: 5925 [Urine:5925] No intake/output data recorded. Physical Exam: General: awake, alert, oriented to person, place, time Eyes: no scleral icterus Neck: supple Pharynx: No gross oral lesion, tongue midline, mucosa moist Lungs clear to auscultation without wheezes or rales Heart: [id number] Abd: +BS, Non Tender, Non distended Lower Ext: trace edema of extremities Neuro: No new gross deficits appreciated Musculoskeletal: no gross joint erythema, edema, tenderness Psychiatric: normal affect and mood Lab/Current Medication Review: Recent Results (from the past 24 hour(s)) POCT glucose Collection Time: 05/27/18 8:53 AM Result Value Ref Range Glucose, POC, bld 119 (H) 71 - 98 mg/dL POCT glucose Collection Time: 05/27/18 9:48 AM Result Value Ref Range Glucose, POC, bld 119 (H) 71 - 98 mg/dL POCT glucose Collection Time: 05/27/18 10:48 AM Result Value Ref Range Glucose, POC, bld 116 (H) 71 - 98 mg/dL POCT glucose Collection Time: 05/27/18 11:50 AM Result Value Ref Range Glucose, POC, bld 109 (H) 71 - 98 mg/dL POCT glucose Collection Time: 05/27/18 12:45 PM Result Value Ref Range Glucose, POC, bld 143 (H) 71 - 98 mg/dL Basic metabolic panel Collection Time: 05/27/18 1:13 PM Result Value Ref Range Sodium 136 135 - 145 mmol/L Potassium, pl 3.0 (Critical) 3.3 - 4.9 mmol/L Chloride 101 97 - 110 mmol/L CO2 17 (L) 22 - 32 mmol/L Anion Gap 19 (H) 2 - 15 mmol/L BUN 6 (L) 8 - 25 mg/dL Creatinine 0.33 (L) 0.60 - 1.10 mg/dL Glucose 158 70 - 199 mg/dL Calcium 8.4 (L) 8.5 - 10.3 mg/dL Magnesium Collection Time: 05/27/18 1:13 PM Result Value Ref Range Magnesium 1.6 1.6 - 2.4 mg/dL Phosphorus Collection Time: 05/27/18 1:13 PM Result Value Ref Range Phosphorus, pl 2.1 (L) 2.3 - 4.5 mg/dL Hemoglobin A1c Collection Time: 05/27/18 1:13 PM Result Value Ref Range Hgb A1C 9.5 (H) 4.0 - 5.6 % Estimated Average Glucose 226 mg/dL eGFR Collection Time: 05/27/18 1:13 PM Result Value Ref Range GFR 159 mL/min/1.73 m2 POCT glucose Collection Time: 05/27/18 1:48 PM Result Value Ref Range Glucose, POC, bld 128 (H) 71 - 98 mg/dL POCT glucose Collection Time: 05/27/18 2:46 PM Result Value Ref Range Glucose, POC, bld 109 (H) 71 - 98 mg/dL POCT glucose Collection Time: 05/27/18 4:12 PM Result Value Ref Range Glucose, POC, bld 179 (H) 71 - 98 mg/dL POCT glucose Collection Time: 05/27/18 5:13 PM Result Value Ref Range Glucose, POC, bld 148 (H) 71 - 98 mg/dL POCT glucose Collection Time: 05/27/18 6:08 PM Result Value Ref Range Glucose, POC, bld 108 (H) 71 - 98 mg/dL Basic metabolic panel Collection Time: 05/27/18 6:15 PM Result Value Ref Range Sodium 135 135 - 145 mmol/L Potassium, pl 2.9 (Critical) 3.3 - 4.9 mmol/L Chloride 101 97 - 110 mmol/L CO2 20 (L) 22 - 32 mmol/L Anion Gap 14 2 - 15 mmol/L BUN 4 (L) 8 - 25 mg/dL Creatinine 0.35 (L) 0.60 - 1.10 mg/dL Glucose 120 70 - 199 mg/dL Calcium 8.6 8.5 - 10.3 mg/dL eGFR Collection Time: 05/27/18 6:15 PM Result Value Ref Range GFR 156 mL/min/1.73 m2 POCT glucose Collection Time: 05/27/18 7:10 PM Result Value Ref Range Glucose, POC, bld 99 (H) 71 - 98 mg/dL POCT glucose Collection Time: 05/27/18 8:00 PM Result Value Ref Range Glucose, POC, bld 138 (H) 71 - 98 mg/dL POCT glucose Collection Time: 05/27/18 9:01 PM Result Value Ref Range Glucose, POC, bld 147 (H) 71 - 98 mg/dL POCT glucose Collection Time: 05/27/18 10:16 PM Result Value Ref Range Glucose, POC, bld 149 (H) 71 - 98 mg/dL POCT glucose Collection Time: 05/27/18 11:20 PM Result Value Ref Range Glucose, POC, bld 116 (H) 71 - 98 mg/dL Basic metabolic panel Collection Time: 05/28/18 12:00 AM Result Value Ref Range Sodium 137 135 - 145 mmol/L Potassium, pl 2.5 (Critical) 3.3 - 4.9 mmol/L Chloride 100 97 - 110 mmol/L CO2 22 22 - 32 mmol/L Anion Gap 15 2 - 15 mmol/L BUN <3 (L) 8 - 25 mg/dL Creatinine 0.30 (L) 0.60 - 1.10 mg/dL Glucose 104 70 - 199 mg/dL Calcium 8.4 (L) 8.5 - 10.3 mg/dL eGFR Collection Time: 05/28/18 12:00 AM Result Value Ref Range GFR 164 mL/min/1.73 m2 POCT glucose Collection Time: 05/28/18 12:21 AM Result Value Ref Range Glucose, POC, bld 95 71 - 98 mg/dL POCT glucose Collection Time: 05/28/18 1:22 AM Result Value Ref Range Glucose, POC, bld 134 (H) 71 - 98 mg/dL POCT glucose Collection Time: 05/28/18 2:23 AM Result Value Ref Range Glucose, POC, bld 187 (H) 71 - 98 mg/dL POCT glucose Collection Time: 05/28/18 3:28 AM Result Value Ref Range Glucose, POC, bld 248 (H) 71 - 98 mg/dL POCT glucose Collection Time: 05/28/18 3:29 AM Result Value Ref Range Glucose, POC, bld 250 (H) 71 - 98 mg/dL POCT glucose Collection Time: 05/28/18 4:40 AM Result Value Ref Range Glucose, POC, bld 265 (H) 71 - 98 mg/dL POCT glucose Collection Time: 05/28/18 6:34 AM Result Value Ref Range Glucose, POC, bld 290 (H) 71 - 98 mg/dL Magnesium Collection Time: 05/28/18 7:02 AM Result Value Ref Range Magnesium 1.7 1.6 - 2.4 mg/dL Phosphorus Collection Time: 05/28/18 7:02 AM Result Value Ref Range Phosphorus, pl 4.0 2.3 - 4.5 mg/dL CBC without differential Collection Time: 05/28/18 7:02 AM Result Value Ref Range WBC 13.4 (H) 3.8 - 9.9 K/cumm Hgb 13.5 11.9 - 15.5 g/dL Hct 40.5 35.6 - 45.5 % Plt 359 150 - 400 K/cumm MPV 8.7 (L) 9.1 - 12.3 fL RBC 4.96 3.90 - 5.20 M/cumm MCV 81.7 81.3 - 96.4 fL MCH 27.2 27.1 - 33.3 pg MCHC 33.3 32.3 - 35.7 g/dL RDW CV 15.4 (H) 11.1 - 14.9 % RDW SD 46.2 35.7 - 48.1 fL NRBC Abs 0.00 0.00 - 0.01 K/cumm Vitamin D 25 hydroxy Collection Time: 05/28/18 7:02 AM Result Value Ref Range Vitamin D, 25-hydroxy 15 (L) 30 - 80 ng/mL Comprehensive metabolic panel Collection Time: 05/28/18 7:02 AM Result Value Ref Range Sodium 136 135 - 145 mmol/L Potassium, pl 3.5 3.3 - 4.9 mmol/L Chloride 97 97 - 110 mmol/L CO2 14 (L) 22 - 32 mmol/L Anion Gap 25 (H) 2 - 15 mmol/L BUN 5 (L) 8 - 25 mg/dL Creatinine 0.40 (L) 0.60 - 1.10 mg/dL Glucose 316 (H) 70 - 199 mg/dL Calcium 8.7 8.5 - 10.3 mg/dL Bilirubin, total 0.5 0.1 - 1.2 mg/dL Protein, pl 7.1 6.5 - 8.5 g/dL Albumin 3.8 3.5 - 5.0 g/dL Alk phos 116 40 - 130 Units/L ALT 14 7 - 45 Units/L AST 14 10 - 45 Units/L Bilirubin, direct Collection Time: 05/28/18 7:02 AM Result Value Ref Range Bilirubin, direct <0.2 0.1 - 0.3 mg/dL eGFR Collection Time: 05/28/18 7:02 AM Result Value Ref Range GFR 149 mL/min/1.73 m2 Current Facility-Administered Medications Medication Dose Route Frequency Provider Last Rate Last Dose ??? cefTRIAXone (ROCEPHIN) 1000 mg/10 mL in sterile water (premix) 1,000 mg 1,000 mg intravenous Q24H [facility] Josette Sloan MD 120 mL/hr at 05/28/18 0835 1,000 mg at 05/28/18 0835 ??? dextrose (concentrated solution) 50 % CONCENTRATED solution 1-50 g 1-50 g intravenous PRN Josette Sloan MD ??? dextrose 5% infusion 100 mL/hr intravenous Continuous Josette Sloan MD 50 mL/hr at 05/28/18 0651 50 mL/hr at 05/28/18 0651 ??? enoxaparin (LOVENOX) syringe 40 mg 40 mg subcutaneous Daily-2100 Pato Haney MD 40 mg at 05/27/182101 ??? insulin regular (HumuLIN R, NovoLIN R) 100 Units in sodium chloride 0.9% 100 mL (1 Units/mL) infusion 0-30 Units/hr intravenous Titrated Josette Sloan MD ??? insulin regular bolus from bag 1-10 Units 1-10 Units intravenous PRN Josette Sloan MD ??? Lactated Ringer's (LR) infusion 100 mL/hr intravenous Continuous Josette Sloan MD 100 mL/hr at 05/28/18 0517 100 mL/hr at 05/28/18 05 ??? metoclopramide (REGLAN) injection 10 mg 10 mg intravenous Q8H BOB Sloan MD ??? ondansetron (ZOFRAN) injection 4 mg 4 mg intravenous Q6H PRN Ayana Prado MD 4 mg at 05/27/18 0449 ??? potassium phosphates 30 mmol in sodium chloride 0.9% 500 mL IVPB 30 mmol intravenous Once Ayana Prado MD 85 mL/hr at 05/28/18248 30 mmol at 05/28/18248 ??? potassium phosphates 30 mmol in sodium chloride 0.9% 500 mL IVPB 30 mmol intravenous Once Ayana Prado MD ??? sertraline (ZOLOFT) tablet 50 mg 50 mg oral Daily Josette Sloan MD A/P: Diabetic ketoacidosis without coma associated with type 1 diabetes mellitus (CMS/HCC), recurrent Sinus tachycardia Nausea and vomiting Sepsis due to gram-negative UTI (CMS/HCC), ecoli, present on admission Hypophosphatemia, hypokalemia - resolved ?? Keep NPO. Resume insulin drip with IV fluids as ordered. Follow-up on lactate and venous blood glass Electrolytes every 4 hours IV rocephin, day 2 pending urine culture. Wbc is improved. Advised to try IV reglan scheduled with prn IV zofran SC lovenox for vte prophylaxis Josette Sloan MD 05/28/2018 8:45 AM CH SETTER * Kathryn Corrales, [facility] - 05/27/2018 6:31 PM CST An order to initiate electrolyte repletion by pharmacy has been received from Dr. Sloan. IV or PO repletion will be ordered [...] will be ordered by providers as needed. CH SETTER * Lucinda Woodward, DIANDRA - 05/27/2018 2:09 PM CST [facility] Nutrition Assessment NAME:Chey Menjivar :1995 AGE:22 y.o. SEX: female ADMISSION DATE:05/26/2018, CURRENT LOS is 1 days. ENCOUNTER DATE: 05/27/18 2:09 PM REASON for ASSESSMENT: Screened at Nutrition Risk and Initial Nutrition Assessment DX: TYPE 1 DIABETES MELLITUS WITH KETOACIDOSIS Nutrition Screen What diet do you follow at home?: diabetic Have You Recently Lost Weight Without Trying?: No Poor Oral Intake for Four or More Days Prior to Admission: No Current diet order: Adult Diet Restricted; Consistent Carbohydrate Pt intake na. PO intakes: na ALLERGIES: Patient has no known allergies. ASPEN Malnutrition Assessment: Nutrition Focused Physical Exam Notes: Nutrition Needs Calculations: Calculated Energy Needs Using Equations Weight Used for Equation Calculations (RD Determined): 55.4 kg (122 lb 2.2 oz) Weight: 55.4 kg (122 lb 2.2 oz) Height: 154.9 cm (5' 0.98 ) [facility] Equation (Overweight or Obese Patients): 1256 Equation Chosen to Use by RD: [facility] Activity Factor: 1.1 Total Energy Needs: 1381.6 kcal Temp: 37 ??C (98.6 ??F) Total Energy Needs + Fever Factor: 1381.6 Estimated Protein Needs Type of Weight Used for Estimated Protein : Current Protein Needs Based on g/k.8 Total Protein Estimated Needs (gm): 44.32 Kcal/kg Type of Weight Used for Estimated Kcals: Current Kcal/k Total Kcal/kg Estimated Needs : 1662 Estimated Fluid Needs Type of Weight Used for Estimated Fluid Needs: Current Fluid Needs Based on : 30 ml/kg Total Fluid Estimated Needs: 1662 Estimated Carbohydrate Needs Type of Weight Used for Estimated Carbohydrate Needs: Current Recommended Carbohydrates for Breakfast (gm) : 45 Recommended Carbohydrates for Lunch (gm) : 60 Recommended Carbohydrates for Dinner (gm) : 60 Recommended Carbohydrates for HS Snack (gm) : 15 Total Daily Carbohydrates Recommended (gm): 180 Estimated needs: ?? Total Kcal/kg Estimated Needs : 1662 based on Kcal/k. Type of Weight Used for Estimated Kcals: Current ?? MSJ Total Energy Needs: 1381.6 kcal using ?? [place] State Total Energy Needs + Fever Factor: 1381.6 ?? Total Protein Estimated Needs (gm): 44.32 Protein Needs Based on g/k.8 Type of Weight Used for Estimated Protein : Current. ?? Total Fluid Estimated Needs: 1662 Fluid Needs Based on : 30 ml/kg. Objective Anthropometrics Weight: 55.4 kg (122 lb 2.2 oz) Admission Weight : 55.4 kg Weight Change: -3.56 kg (-7.86 lbs) IBW/kg (Calculated) : 47.6 kg Height: 154.9 cm (5' 0.98 ) Weight in (lb) to have BMI = 25: 132 BMI (Calculated): 23.1 3 Day I/O Summary 05/25 1899 - 05/27 0659 In: 3294 [I.V.:2294] Out: - Temp: 37 ??C (98.6 ??F) [place] body weight: 47.8 kg (105 lb 4.8 oz) Adjusted ideal body weight: 50.8 kg (112 lb 0.5 oz) Past Medical History: Diagnosis Date ??? Depression ??? Diabetes mellitus (CMS/HCC) ??? HX OTHER MEDICAL 2011 Diabetes mellitus, type 1 Medications and Lab Review: Scheduled Meds: cefTRIAXone 1,000 mg intravenous Q24H BOB enoxaparin 40 mg subcutaneous Daily-2100 Continuous Infusions: dextrose 5% 100 mL/hr Last Rate: 100 mL/hr (05/27/18 0607) insulin regular 0-30 Units/hr Last Rate: 2 Units/hr (05/27/18 1349) sodium chloride 0.9% 100 mL/hr Last Rate: 100 mL/hr (05/27/18 0900) Sodium Date Value Ref Range Status 05/27/2018 139 135 - 145 mmol/L Final Potassium, pl Date Value Ref Range Status 05/27/2018 4.1 3.3 - 4.9 mmol/L Final Comment: Hemolysis present. Results may be affected. BUN Date Value Ref Range Status 05/27/2018 11 8 - 25 mg/dL Final Creatinine Date Value Ref Range Status 05/27/2018 0.36 (L) 0.60 - 1.10 mg/dL Final Albumin Date Value Ref Range Status 05/26/2018 4.5 3.5 - 5.0 g/dL Final Calcium Date Value Ref Range Status 05/27/2018 8.7 8.5 - 10.3 mg/dL Final Lab Results Component Value Date HGBA1C 8.7 (H) 02/08/2017 POC Glucose: 128(05/27) Nursing Assessment: Last BM Date: 05/26/18 Bowel Sounds (All Quadrants): Active Emesis Assessment Emesis Color/Appearance: Green, Mucousy Teodoro Scale Score: 19 Nutrition Follow-Up : 06/01/18 Nutrition Diagnosis 1: Inadequate oral intake Related to: Vomiting, Nausea Evidenced by: Physical finding ?? Interventions: [place] diet preferences within the limits of nutrition care order ?? Monitoring and Evaluation: Blood glucoses, PO intake, Labs ?? Goals: Adequate nutrition to meet estimated needs by next assessment ? Nutritional Risk: medium Follow up date: 06/01/[address],LDN CH SETTER * Yolette Whyte RN - 05/27/2018 10:31 AM CST Chey Dawson Menjivar [id number] Sanjuanita Enamorado MD Pre-Education Assessment Visit Type: Initial Provider: Medical/Hydroelectric Station Operator/PCP Treatment Prior To Admission: Insulin, Blood glucose monitoring Knowledge Base: Experienced Diabetes Management Education Provided: Please see the Patient Education Activity patient nauseated and exhausted. Bedside nurse states patient was awake most of the night. Unable to educate at this time Yolette Whyte, RN, Replenisher 05/27/2018 10:32 AM CH SETTER * Felipe Mayo, [facility] - 05/26/2018 11:23 PM CST An order to initiate electrolyte repletion by pharmacy has been received from Dr. Tay. IV or PO repletion will be ordered [...] will be ordered by providers as needed. CH SETTER documented in this encounter H&P Notes * Josette Sloan MD - 05/27/2018 2:21 PM CST History and Physical CHIEF COMPLAINT Nausea HPI: 22yo female with history of type 1 DM, depression disorder presenting with complaints of back pain and nausea. Denies dysuria or frequent urination, fever, chills, diarrhea, cough, shortness of breath, or palpitations. Her glucose has been under control and she takes 10 units of lantus with a sliding scale. Past Medical History: Diagnosis Date ??? Depression ??? Diabetes mellitus (CMS/[facility]) ??? HX OTHER MEDICAL 2011 Diabetes mellitus, type 1 Past Surgical History: Procedure Laterality Date ??? ABDOMINAL SURGERY ??? SECTION, CLASSIC 2017 ??? TONSILLECTOMY Bilateral 2002 Prescriptions Prior to Admission Medication Sig Dispense Refill Last Dose ??? insulin glargine (LANTUS,BASAGLAR) 100 unit/mL (3 mL) insulin pen Inject 10 Units under the skin daily. (Patient taking differently: Inject 10 Units under the skin nightly. ) 0 05/25/2018 at Unknown time ??? insulin lispro (HumaLOG) 100 unit/mL injection Inject 1 Units under the skin 3 (three) times a day before meals. Carb ratio 1 unit of humalog per 8 carbs with meals. 05/26/2018 at Unknown time ??? metoclopramide (REGLAN) 5 mg tablet Take 1 tablet (5 mg total) by mouth every 8 (eight) hours as needed (nausea). 10 tablet 0 Past Month at Unknown time ??? sertraline (ZOLOFT) 50 mg tablet Take 50 mg by mouth daily. 05/26/2018 at Unknown time No Known Allergies Social History Substance Use Topics ??? Smoking status: Never Smoker ??? Smokeless tobacco: Never Used ??? Alcohol use Yes Family History Problem Relation Age of Onset ??? No Known Problems Mother ??? Autism Brother Review of Systems: as noted above. All other systems reviewed are negative OBJECTIVE Vitals: Arrival Vitals Temp 05/26/18 1426 (!) 35.9 ??C (96.6 ??F) Pulse 05/26/18 1426 113 Resp 05/26/18 1426 20 BP 05/26/18 1426 138/94 SpO2 05/26/18 1426 98 % Temp src 05/26/18 1426 Temporal Heart Rate Source 05/26/18 1617 Pulse Oximetry Patient Position 05/26/18 1617 Sitting BP Location 05/26/18 1617 Left arm FiO2 (%) -- 24hr Min/Max: Temp Min: 36.5 ??C (97.7 ??F) Max: 37.2 ??C (99 ??F) Pulse Min: 101 Max: 135 BP Min: 95/49 Max: 143/94 Resp Min: 11 Max: 25 SpO2 Min: 97 % Max: 100 % Most Recent : Vitals: 05/27/18 1400 BP: 127/79 Pulse: 101 Resp: 23 Temp: SpO2: 100% Intake/Output Summary (Last 24 hours) at 05/27/18 1718 Last data filed at 05/27/18 1215 Gross per 24 hour Intake 6208 ml Output 1050 ml Net 5158 ml Physical exam: General: awake, alert, oriented. No acute distress Eyes: EOMI, ZORAIDA, sclare non icteric Neck: supple, no gross carotid bruits appreciated Pharynx: No gross oral lesion Lungs CTA Heart: [id number], tachycardic Abd: +BS, Non Tender, Non distended, no flank tenderness Lower Ext: No gross edema Neuro: No new gross deficits appreciated Musculoskeletal: no gross joint erythema, edema, tenderness Psychiatric: normal affect Lab/Radiology/Diagnostic Review: Recent Results (from the past 24 hour(s)) POCT glucose Collection Time: 05/26/18 6:28 PM Result Value Ref Range Glucose, POC, bld 371 (Critical) 71 - 98 mg/dL POCT glucose Collection Time: 05/26/18 7:02 PM Result Value Ref Range Glucose, POC, bld 281 (H) 71 - 98 mg/dL Basic metabolic panel Collection Time: 05/26/18 7:03 PM Result Value Ref Range Sodium 140 135 - 145 mmol/L Potassium, pl 4.3 3.3 - 4.9 mmol/L Chloride 102 97 - 110 mmol/L CO2 15 (L) 22 - 32 mmol/L Anion Gap 22 (H) 2 - 15 mmol/L BUN 12 8 - 25 mg/dL Creatinine 0.52 (L) 0.60 - 1.10 mg/dL Glucose 296 (H) 70 - 199 mg/dL Calcium 9.6 8.5 - 10.3 mg/dL Blood gas, venous Collection Time: 05/26/18 7:03 PM Result Value Ref Range pH, Venous 7.35 7.32 - 7.43 PCO2, Venous 30 (L) 40 - 50 mmHg PO2, Venous 48 mmHg HCO3 Venous, Calculated 16 (L) 20 - 30 mmol/L BE, venous -8 mmol/L eGFR Collection Time: 05/26/18 7:03 PM Result Value Ref Range GFR 137 mL/min/1.73 m2 POCT glucose Collection Time: 05/26/18 8:03 PM Result Value Ref Range Glucose, POC, bld 167 (H) 71 - 98 mg/dL POCT glucose Collection Time: 05/26/18 8:54 PM Result Value Ref Range Glucose, POC, bld 132 (H) 71 - 98 mg/dL POCT glucose Collection Time: 05/26/18 10:02 PM Result Value Ref Range Glucose, POC, bld 164 (H) 71 - 98 mg/dL POCT glucose Collection Time: 05/26/18 11:07 PM Result Value Ref Range Glucose, POC, bld 168 (H) 71 - 98 mg/dL POCT glucose Collection Time: 05/26/18 11:58 PM Result Value Ref Range Glucose, POC, bld 119 (H) 71 - 98 mg/dL POCT glucose Collection Time: 05/27/18 12:53 AM Result Value Ref Range Glucose, POC, bld 121 (H) 71 - 98 mg/dL POCT glucose Collection Time: 05/27/18 1:57 AM Result Value Ref Range Glucose, POC, bld 87 71 - 98 mg/dL POCT glucose Collection Time: 05/27/18 2:52 AM Result Value Ref Range Glucose, POC, bld 113 (H) 71 - 98 mg/dL POCT glucose Collection Time: 05/27/18 4:00 AM Result Value Ref Range Glucose, POC, bld 114 (H) 71 - 98 mg/dL Basic metabolic panel Collection Time: 05/27/18 4:28 AM Result Value Ref Range Sodium 139 135 - 145 mmol/L Potassium, pl 4.1 3.3 - 4.9 mmol/L Chloride 104 97 - 110 mmol/L CO2 19 (L) 22 - 32 mmol/L Anion Gap 17 (H) 2 - 15 mmol/L BUN 11 8 - 25 mg/dL Creatinine 0.36 (L) 0.60 - 1.10 mg/dL Glucose 168 70 - 199 mg/dL Calcium 8.7 8.5 - 10.3 mg/dL CBC with auto differential Collection Time: 05/27/18 4:28 AM Result Value Ref Range WBC 16.0 (H) 3.8 - 9.9 K/cumm Hgb 12.0 11.9 - 15.5 g/dL Hct 36.0 35.6 - 45.5 % Plt 383 150 - 400 K/cumm MPV 9.0 (L) 9.1 - 12.3 fL RBC 4.41 3.90 - 5.20 M/cumm MCV 81.6 81.3 - 96.4 fL MCH 27.2 27.1 - 33.3 pg MCHC 33.3 32.3 - 35.7 g/dL RDW CV 15.9 (H) 11.1 - 14.9 % RDW SD 48.0 35.7 - 48.1 fL NRBC Abs 0.00 0.00 - 0.01 K/cumm Differential, auto Collection Time: 05/27/18 4:28 AM Result Value Ref Range Neutrophil absolute 12.3 (H) 1.7 - 6.5 K/cumm Immature granulocyte absolute 0.1 0.0 - 0.1 K/cumm Lymphocytes absolute 2.1 0.8 - 3.3 K/cumm Monocyte absolute 1.5 (H) 0.2 - 0.8 K/cumm Eosinophils absolute 0.0 0.0 - 0.5 K/cumm Basophils, abs 0.0 0.0 - 0.1 K/cumm Neutrophils 76.8 % Immature granulocytes 0.4 % Lymphocytes 13.3 % Monocytes 9.4 % Eosinophils 0.0 % Basophils 0.1 % eGFR Collection Time: 05/27/18 4:28 AM Result Value Ref Range GFR 154 mL/min/1.73 m2 POCT glucose Collection Time: 05/27/18 4:56 AM Result Value Ref Range Glucose, POC, bld 203 (H) 71 - 98 mg/dL POCT glucose Collection Time: 05/27/18 5:54 AM Result Value Ref Range Glucose, POC, bld 142 (H) 71 - 98 mg/dL POCT glucose Collection Time: 05/27/18 6:51 AM Result Value Ref Range Glucose, POC, bld 93 71 - 98 mg/dL POCT glucose Collection Time: 05/27/18 7:52 AM Result Value Ref Range Glucose, POC, bld 94 71 - 98 mg/dL POCT glucose Collection Time: 05/27/18 8:53 AM Result Value Ref Range Glucose, POC, bld 119 (H) 71 - 98 mg/dL POCT glucose Collection Time: 05/27/18 9:48 AM Result Value Ref Range Glucose, POC, bld 119 (H) 71 - 98 mg/dL POCT glucose Collection Time: 05/27/18 10:48 AM Result Value Ref Range Glucose, POC, bld 116 (H) 71 - 98 mg/dL POCT glucose Collection Time: 05/27/18 11:50 AM Result Value Ref Range Glucose, POC, bld 109 (H) 71 - 98 mg/dL POCT glucose Collection Time: 05/27/18 12:45 PM Result Value Ref Range Glucose, POC, bld 143 (H) 71 - 98 mg/dL Basic metabolic panel Collection Time: 05/27/18 1:13 PM Result Value Ref Range Sodium 136 135 - 145 mmol/L Potassium, pl 3.0 (Critical) 3.3 - 4.9 mmol/L Chloride 101 97 - 110 mmol/L CO2 17 (L) 22 - 32 mmol/L Anion Gap 19 (H) 2 - 15 mmol/L BUN 6 (L) 8 - 25 mg/dL Creatinine 0.33 (L) 0.60 - 1.10 mg/dL Glucose 158 70 - 199 mg/dL Calcium 8.4 (L) 8.5 - 10.3 mg/dL Magnesium Collection Time: 05/27/18 1:13 PM Result Value Ref Range Magnesium 1.6 1.6 - 2.4 mg/dL Phosphorus Collection Time: 05/27/18 1:13 PM Result Value Ref Range Phosphorus, pl 2.1 (L) 2.3 - 4.5 mg/dL Hemoglobin A1c Collection Time: 05/27/18 1:13 PM Result Value Ref Range Hgb A1C 9.5 (H) 4.0 - 5.6 % Estimated Average Glucose 226 mg/dL eGFR Collection Time: 05/27/18 1:13 PM Result Value Ref Range GFR 159 mL/min/1.73 m2 POCT glucose Collection Time: 05/27/18 1:48 PM Result Value Ref Range Glucose, POC, bld 128 (H) 71 - 98 mg/dL POCT glucose Collection Time: 05/27/18 2:46 PM Result Value Ref Range Glucose, POC, bld 109 (H) 71 - 98 mg/dL POCT glucose Collection Time: 05/27/18 4:12 PM Result Value Ref Range Glucose, POC, bld 179 (H) 71 - 98 mg/dL POCT glucose Collection Time: 05/27/18 5:13 PM Result Value Ref Range Glucose, POC, bld 148 (H) 71 - 98 mg/dL Current Facility-Administered Medications Medication Dose Route Frequency Provider Last Rate Last Dose ??? cefTRIAXone (ROCEPHIN) 1000 mg/10 mL in sterile water (premix) 1,000 mg 1,000 mg intravenous Q24H [facility] Josette Sloan MD 120 mL/hr at 05/27/18 1213 1,000 mg at 05/27/18 1213 ??? dextrose (concentrated solution) 50 % CONCENTRATED solution 1-50 g 1-50 g intravenous PRN Ayana Prado MD ??? dextrose 5% infusion 100 mL/hr intravenous Continuous Pato Haney MD 100 mL/hr at 05/27/18 1619 100 mL/hr at 05/27/18 1619 ??? enoxaparin (LOVENOX) syringe 40 mg 40 mg subcutaneous Daily-2100 Pato Haney MD 40 mg at 05/26/182119 ??? insulin regular (HumuLIN R, NovoLIN R) 100 Units in sodium chloride 0.9% 100 mL (1 Units/mL) infusion 0-30 Units/hr intravenous Titrated Ayana Prado MD 3.5 mL/hr at 05/27/18 1714 3.5 Units/hr at 05/27/18 1714 ??? insulin regular bolus from bag 1-10 Units 1-10 Units intravenous PRN Ayana Prado MD ??? metoclopramide (REGLAN) injection 10 mg 10 mg intravenous Q8H PRN Pato Haney MD 10 mg at05/27/18 0533 ??? ondansetron (ZOFRAN) injection 4 mg 4 mg intravenous Q6H PRN Ayana Prado MD 4 mg at 05/27/18 0449 ??? potassium chloride ER (KLOR-CON,K-DUR) extended release tablet 40 mEq 40 mEq oral Once VeronicaO. Nathalia MD ? ? potassium, sodium phosphates (PHOS-NAK) 280-160-250 mg packet 1 packet 1 packet oral QID (AC & HS) Josette Sloan MD ??? sodium chloride 0.9% infusion 100 mL/hr intravenous Continuous Ayana Prado MD 100 mL/hr at 05/27/18 0900 100 mL/hr at 05/27/18 0900 A/P Diabetic ketoacidosis without coma associated with type 1 diabetes mellitus (CMS/HCC) Sinus tachycardia Nausea and vomiting Sepsis due to gram-negative UTI ([facility]/HCC), present on admission Hypophosphatemia, hypokalemia Continue insulin drip with IV fluids until anion gap closes. Keep NPO. Repeat bmp q4h IV rocephin, day 1 pending urine culture IV reglan scheduled with prn IV zofra PO neutraphos and KCL. Repeat labs in the AM SC lovenox for vte prophylaxis Josette Sloan MD Date of Service: 05/27/2018 CH SETTER documented in this encounter Consult Notes * Warren Phillips MD - 06/01/2018 7:50 PM CST Gastroenterology Consult Reason for consult: n/v for 6 days Date of Consult: 06/01/2018 SUBJECTIVE Patient is a 22 y.o. female with complaint of persistent nausea and vomiting. She came to hospital with nausea and vomiting and diarrhea. Noted her blood glucose was high, and she was in ketoacidosis. No vomiting of blood. Even at home on many occasions he ets regurgitation or vomiting after meals.No vomiting blood. She was having loose bowel movements. No blood in stool. No abdominal pain. Sometimes with vomiting she feels hartburn. Past Medical History: Diagnosis Date ??? Depression ??? Diabetes mellitus (CMS/HCC) ??? HX OTHER MEDICAL 2010 Diabetes mellitus, type 1 Past Surgical History: Procedure Laterality Date ??? ABDOMINAL SURGERY ??? SECTION, CLASSIC 2016 ??? TONSILLECTOMY Bilateral 2002 Prescriptions Prior to Admission Medication Sig Dispense Refill Last Dose ??? insulin glargine (LANTUS,BASAGLAR) 100 unit/mL (3 mL) insulin pen Inject 10 Units under the skin daily. (Patient taking differently: Inject 10 Units under the skin nightly. ) 0 05/25/2018 at Unknown time ??? insulin lispro (HumaLOG) 100 unit/mL injection Inject 1 Units under the skin 3 (three) times a day before meals. Carb ratio 1 unit of humalog per 8 carbs with meals. 05/26/2018 at Unknown time ??? metoclopramide (REGLAN) 5 mg tablet Take 1 tablet (5 mg total) by mouth every 8 (eight) hours as needed (nausea). 10 tablet 0 Past Month at Unknown time ??? sertraline (ZOLOFT) 50 mg tablet Take 50 mg by mouth daily. 05/26/2018 at Unknown time No Known Allergies Social History Substance Use Topics ??? Smoking status: Never Smoker ??? Smokeless tobacco: Never Used ??? Alcohol use Yes Family History Problem Relation Age of Onset ??? No Known Problems Mother ??? Autism Brother Review of Systems Constitutional: Positive for activity change and fatigue. Negative for unexpected weight change. HENT: Negative. Eyes: Negative. Respiratory: Negative. Cardiovascular: Negative. Gastrointestinal: Positive for diarrhea, nausea and vomiting. Negative for abdominal pain. Genitourinary: Negative. Musculoskeletal: Negative. Skin: Negative. Neurological: Negative. Psychiatric/Behavioral: Negative. Vitals: BP 122/67 (BP Location: Left arm, Patient Position: Lying) Pulse 97 Temp 36.6 ??C (97.9 ??F) (Temporal) Resp 19 Ht 154.9 cm (5' 0.98 ) Wt 55.4 kg (122 lb 2.2 oz) LMP 05/08/2018 (Exact Date) SpO2 98% BMI 23.09 kg/m?? OBJECTIVE Physical Exam: Patient is alert [...] past 48 hour(s)) POCT glucose Collection Time: 05/30/18 8:42 PM Result Value Ref Range Glucose, POC, bld 146 (H) 71 - 98 mg/dL Basic metabolic panel Collection Time: 05/31/18 6:11 AM Result Value Ref Range Sodium 139 135 - 145 mmol/L Potassium, pl 3.3 3.3 - 4.9 mmol/L Chloride 99 97 - 110 mmol/L CO2 27 22 - 32 mmol/L Anion Gap 13 2 - 15 mmol/L BUN 5 (L) 8 - 25 mg/dL Creatinine 0.34 (L) 0.60 - 1.10 mg/dL Glucose 247 (H) 70 - 199 mg/dL Calcium 8.6 8.5 - 10.3 mg/dL CBC without differential Collection Time: 05/31/18 6:11 AM Result Value Ref Range WBC 6.4 3.8 - 9.9 K/cumm Hgb 11.7 (L) 11.9 - 15.5 g/dL Hct 34.1 (L) 35.6 - 45.5 % Plt 308 150 - 400 K/cumm MPV 8.4 (L) 9.1 - 12.3 fL RBC 4.22 3.90 - 5.20 M/cumm MCV 80.8 (L) 81.3 - 96.4 fL MCH 27.7 27.1 - 33.3 pg MCHC 34.3 32.3 - 35.7 g/dL RDW CV 15.3 (H) 11.1 - 14.9 % RDW SD 45.1 35.7 - 48.1 fL NRBC Abs 0.00 0.00 - 0.01 K/cumm Magnesium Collection Time: 05/31/18 6:11 AM Result Value Ref Range Magnesium 1.6 1.6 - 2.4 mg/dL Phosphorus Collection Time: 05/31/18 6:11 AM Result Value Ref Range Phosphorus, pl 2.9 2.3 - 4.5 mg/dL eGFR Collection Time: 05/31/18 6:11 AM Result Value Ref Range GFR 157 mL/min/1.73 m2 POCT glucose Collection Time: 05/31/18 7:59 AM Result Value Ref Range Glucose, POC, bld 274 (H) 71 - 98 mg/dL POCT glucose Collection Time: 05/31/18 12:10 PM Result Value Ref Range Glucose, POC, bld 181 (H) 71 - 98 mg/dL POCT glucose Collection Time: 05/31/18 3:23 PM Result Value Ref Range Glucose, POC, bld 63 (L) 71 - 98 mg/dL POCT glucose Collection Time: 05/31/18 5:09 PM Result Value Ref Range Glucose, POC, bld 134 (H) 71 - 98 mg/dL POCT glucose Collection Time: 05/31/18 6:48 PM Result Value Ref Range Glucose, POC, bld 134 (H) 71 - 98 mg/dL Clostridium difficile assay Stool Collection Time: 05/31/18 9:07 PM Result Value Ref Range Report Final Report: Negative Clostridium difficile toxin not detected POCT glucose Collection Time: 05/31/18 9:56 PM Result Value Ref Range Glucose, POC, bld 242 (H) 71 - 98 mg/dL POCT glucose Collection Time: 06/01/18 4:21 AM Result Value Ref Range Glucose, POC, bld 107 (H) 71 - 98 mg/dL Basic metabolic panel Collection Time: 06/01/18 4:26 AM Result Value Ref Range Sodium 141 135 - 145 mmol/L Potassium, pl 3.2 (L) 3.3 - 4.9 mmol/L Chloride 105 97 - 110 mmol/L CO2 31 22 - 32 mmol/L Anion Gap 6 2 - 15 mmol/L BUN 5 (L) 8 - 25 mg/dL Creatinine 0.33 (L) 0.60 - 1.10 mg/dL Glucose 144 70 - 199 mg/dL Calcium 8.1 (L) 8.5 - 10.3 mg/dL CBC without differential Collection Time: 06/01/18 4:26 AM Result Value Ref Range WBC 6.9 3.8 - 9.9 K/cumm Hgb 10.2 (L) 11.9 - 15.5 g/dL Hct 29.9 (L) 35.6 - 45.5 % Plt 257 150 - 400 K/cumm MPV 8.6 (L) 9.1 - 12.3 fL RBC 3.63 (L) 3.90 - 5.20 M/cumm MCV 82.4 81.3 - 96.4 fL MCH 28.1 27.1 - 33.3 pg MCHC 34.1 32.3 - 35.7 g/dL RDW CV 15.2 (H) 11.1 - 14.9 % RDW SD 45.9 35.7 - 48.1 fL NRBC Abs 0.00 0.00 - 0.01 K/cumm Magnesium Collection Time: 06/01/18 4:26 AM Result Value Ref Range Magnesium 1.7 1.6 - 2.4 mg/dL Phosphorus Collection Time: 06/01/18 4:26 AM Result Value Ref Range Phosphorus, pl 3.1 2.3 - 4.5 mg/dL eGFR Collection Time: 06/01/18 4:26 AM Result Value Ref Range GFR 159 mL/min/1.73 m2 POCT glucose Collection Time: 06/01/18 7:47 AM Result Value Ref Range Glucose, POC, bld 180 (H) 71 - 98 mg/dL POCT glucose Collection Time: 06/01/18 10:48 AM Result Value Ref Range Glucose, POC, bld 168 (H) 71 - 98 mg/dL Urinalysis reflex to microscopic Collection Time: 06/01/18 3:27 PM Result Value Ref Range Color, ur Yellow Yellow Clarity, ur Clear Clear Specific gravity, ur 1.008 (L) 1.010 - 1.025 pH, urine 7.5 Protein, ur ql Negative Negative Glucose, ur ql 1+ (A) Negative Ketones, ur 2+ (A) Negative Bilirubin, ur Negative Negative Blood, ur 3+ (A) Negative Urobilinogen, ur 0.2 mg/dL Nitrite, ur Negative Negative Leukocyte esterase, ur Negative Negative Urinalysis, microscopic only Collection Time: 06/01/18 3:27 PM Result Value Ref Range WBC, ur 0-5 0 - 5 /HPF RBC, ur >50 (A) 0 - 2 /HPF Epithelial cells, squamous, ur 1-5 0 - 5 /HPF Bacteria, ur Negative Hyaline casts, ur 1-5 0 - 10 /LPF POCT glucose Collection Time: 06/01/18 4:43 PM Result Value Ref Range Glucose, POC, bld 174 (H) 71 - 98 mg/dL No results found. GI IMPRESSION: 1. Nausea and vomiting likely secondary to diabetes ketoacidosis and gastric delayed emptying, possibly gastroparesis. 2. Insulin dependant diabetes uncontrolled and Diabetes keto acidosis. GI PLAN: 1. Will start iv Reglan every 6 hours. 2. Start Ativan 0.25 mg at night 3. Will keep her on the diabetic diet now, but if she continued to vomit then will change to liquiddiet, and likely do an EGD. 4. Need strict control of diabetes. 5. Follow progress. Warren Phillips MD CH SETTER documented in this encounter Nursing Notes * Ana Parra RN - 06/02/2018 1:02 PM CST Patient discharged home with discharge instructions in hand. Patient accompanied per staff to private vehicle. States understanding of medications and discharge instructions. CH SETTER * Ana Parra RN - 06/02/2018 11:32 AM CST Patient question when she could go home states both doctors that seen her today said she was up fordischarge. Spoke with Dr Pulido he is prepared to discharge as long as Dr. Phillips agrees. Call placed to Dr. Phillips he states patient can be discharged. CH SETTER * Ana Parra RN - 06/02/2018 10:13 AM CST Patient up and moving around room, requested shower this morning. Patient is being cooperative withstaff responding in full sentences and eating breakfast, facial expression still blank may be patients baseline. CH SETTER CH SETTER * Marilyn Crawford RN - 05/29/2018 5:54 PM CST Patient returned from CT with no adverse events noted. She has had no reactions to CT dye at this time and she is now getting a NS bolus per MD order. Patient is more awake at this time and more talkative. Her boyfriend is here to visit and she is in better spirits. CH SETTER documented in this encounter ED Notes * Pato Haney MD - 05/26/2018 6:14 PM CST HPI Chief Complaint Patient presents with ??? Vomiting ??? Hyperglycemia (6:11 PM 05/26/2018): Chey Menjivar is a 22 y/o female with a history of type 1 diabetes presenting to the ED complaining of nausea and vomiting that began at today at 1300. Pt was seen a her PCP office earlier today and was diagnosed with a UTI. Pt is complaining of nausea, vomiting, hematuria, milddysuria, and low back pain. Pt's mother states that these symptoms are consistent to when she has been in DKA in the past. Pt's mother reports that her hospital admissions for DKA usually take around5 days because she falls back into DKA once moved from the ICU. Patient History Patient Active Problem List Diagnosis Date Noted ??? Type 1 diabetes mellitus with complication (CMS/HCC) ??? Type 1 diabetes mellitus with [...] Problems Mother ??? Autism Brother Social History Substance Use Topics ??? Smoking status: Never Smoker ??? Smokeless tobacco: Never Used ??? Alcohol use Yes Social History Social History Narrative ??? No narrative on file Review of Systems Review of Systems Constitutional: Negative for fever. HENT: Negative for congestion. Eyes: Negative for redness. Respiratory: Negative for shortness of breath. Cardiovascular: Negative for chest pain. Gastrointestinal: Positive for nausea and vomiting. Negative for abdominal pain. Genitourinary: Positive for dysuria and hematuria. Negative for difficulty urinating. Musculoskeletal: Positive for back pain. Negative for joint swelling. Skin: Negative for rash. Neurological: Negative for headaches. Psychiatric/Behavioral: Negative for agitation. Physical Exam ED Triage Vitals Temp Pulse Resp BP SpO2 05/26/18 1426 05/26/18 1426 05/26/18 1426 05/26/18 1426 05/26/18 1426 (!) 35.9 ??C (96.6 ??F) 113 20 138/94 98 % Temp src Heart Rate Source Patient Position BP Location FiO2 (%) 05/26/18 1426 05/26/18 1617 05/26/18 1617 05/26/18 1617 -- Temporal Pulse Oximetry Sitting Left arm Physical Exam Constitutional: She appears well-developed and well-nourished. No distress. Patient alert but drowsy and minimally interactive HENT: Head: Normocephalic and atraumatic. Right Ear: [...] wheezes. She has no rales. Abdominal: Soft. Bowel sounds are normal. She exhibits no distension. There is no tenderness. Thereis no guarding. Musculoskeletal: Normal range of motion. She exhibits no edema. Neurological: She is alert. No sensory deficit (To light touch). Face symmetrical. Skin: Skin is warm and dry. Capillary refill takes less than 2 seconds. Psychiatric: She has a normal mood and affect. Her behavior is normal. Nursing note and vitals reviewed. MDM Vitals: 05/26/18 1426 05/26/18 1617 BP: 138/94 133/94 BP Location: Left arm Patient Position: Sitting Pulse: 113 120 Resp: 20 20 Temp: (!) 35.9 ??C (96.6 ??F) TempSrc: Temporal SpO2: 98% 99% Weight: 59 kg (130 lb) Height: 152.4 cm (5') Labs Reviewed URINALYSIS AND REFLEX TO MICROSCOPIC AND CULTURE - Abnormal Result Value Color, ur Yellow Clarity, ur Turbid (*) Specific gravity, ur 1.027 (*) pH, urine 6.0 Protein, ur ql 2+ (*) Glucose, ur ql 3+ (*) Ketones, ur 4+ (*) Bilirubin, ur Negative Blood, ur 2+ (*) Urobilinogen, ur 0.2 Nitrite, ur Positive (*) Leukocyte esterase, ur 2+ (*) Narrative: Urine pH is affected by diet, medications, systemic acid-base disturbances, and renal tubular function. pH may affect urinary stone formation. For example, urine pH below 6.0 may help reduce the tendency for calcium phosphate stones and pH greater than 6.0 may reduce the tendency for uric acid stone formation. Source: [employer].Last revised 05-13-2017 CBC WITH AUTO DIFFERENTIAL - Abnormal WBC 13.4 (*) Hgb 13.6 Hct 40.4 Plt 407 (*) MPV 8.9 (*) RBC 4.89 MCV 82.6 MCH 27.8 MCHC 33.7 RDW CV 15.6 (*) RDW SD 47.5 NRBC Abs 0.00 Narrative: BASIC METABOLIC PANEL - Abnormal Sodium 142 Potassium, pl 3.9 Chloride 101 CO2 21 (*) Anion Gap 20 (*) BUN 11 Creatinine 0.49 (*) Glucose 283 (*) Calcium 10.1 Narrative: HEPATIC FUNCTION PANEL - Abnormal Bilirubin, total 0.7 Bilirubin, direct <0.2 Protein, pl 8.0 Albumin 4.5 Alk phos 132 (*) ALT 22 AST 22 Narrative: DIFFERENTIAL AUTO - Abnormal Neutrophil absolute 11.8 (*) Immature granulocyte absolute 0.1 Lymphocytes absolute 0.8 Monocyte absolute 0.7 Eosinophils absolute 0.0 Basophils, abs 0.0 Neutrophils 88.0 Immature granulocytes 0.5 Lymphocytes 6.2 Monocytes 5.2 Eosinophils 0.0 Basophils 0.1 Narrative: URINALYSIS, MICROSCOPIC ONLY - Abnormal WBC, ur >50 (*) RBC, ur 6-10 (*) Epithelial cells, squamous, ur 1-5 Bacteria, ur 4+ (*) Hyaline casts, ur 1-5 Narrative: POCT GLUCOSE DEVICE - Abnormal Glucose, POC, bld 230 (*) Narrative: POCT GLUCOSE DEVICE - Abnormal Glucose, POC, bld 305 (*) Narrative: LIPASE Lipase 10 Narrative: EGFR GFR 139 Narrative: HCG, URINE, QUALITATIVE HCG, ur Negative Narrative: BASIC METABOLIC PANEL BLOOD GAS, VENOUS POCT GLUCOSE DEVICE POCT GLUCOSE DEVICE POCT GLUCOSE DEVICE POCT GLUCOSE DEVICE POCT GLUCOSE DEVICE POCT GLUCOSE DEVICE No orders to display MDM ED Course as of May 26 1844 Time: 05/26 1815 Comment: Labs drawn in triage her consistent with a UTI and mild DKA. Unfortunately blood gas was not drawn at that time. Will start the patient on treatment for DKA and start her on ceftriaxone for UTI. By: Pato Haney MD Time: 05/26 1843 Comment: Consultation with Dr. Enamorado she graciously accepts the patient for admission to the ICUfor further management of DKA. By: Pato Haney MD Time: 05/26 1843 Comment: Patient id the ICU. By: Pato Haney MD IMPRESSION: 1. Type 1 diabetes mellitus with ketoacidosis without coma ([facility]) ATTESTATIONS: 6:45 PM: This note is prepared by Dorian Akhtar, acting as a scribe for Pato Haney MD. I electronically signed this note at 6:45 PM on 05/26/2018. I, Pato Haney MD, have personally performed the services described in the documentation, reviewed the documentation, as recorded by the scribe in my presence, and it accurately and completely records my words and actions. Pato Haney MD 05/26/181844 CH SETTER * Ioana Adams RN - 05/26/2018 2:23 PM CST 22 yo female pt presents via wheelchair with complaints of having high blood sugar since 0730 this morning. is unsure of what her reading was at that time, but took 5 units of insulin. Has vomited multiple times. has right flank pain, has a UTI that she was diagnosed with todayat her PCP. has not picked up her antibiotic at this time. CH SETTER CH SETTER CH SETTER documented in this encounter Miscellaneous Notes * Plan of Care - Liliane Chang MSW - 06/02/2018 12:03 PM CST Pt is medicaid pending; [facility] assists with dc medications. Pt reports was akeing diabetic medicine prior to hospitalization and had Medicaid coverage. RX resource list provided. If this is the last note consider it to be the dc summary. CH SETTER * Plan of Care - Ana Parra RN - 06/02/2018 11:41 AM CST Goals: Clinical Goals for the Shift: patient will be cooperative with staff, remain hemodynamically stable Summary: Patient hemodynamically stable, appetite fair, compliant with staff and treatment regimens. Possible discharge to home. CH SETTER * Plan of Care - Tavo Bucio RN - 06/02/2018 5:54 AM CST Goals: Clinical Goals for the Shift: patient will remain hemodynamicaly stable today Summary: CH SETTER * Plan of Care - Neena Collins RN - 06/01/2018 1:17 PM CST Activity: ??? Risk for activity intolerance will decrease Not Progressing Activity: ??? Ability to perform activities of daily living will improve Not Progressing ??? Will verbalize the importance of balancing activity with adequate rest periods Not Progressing Cardiac: ??? Ability to maintain an adequate cardiac output will improve Not Progressing Fluid Volume: ??? Ability to achieve a balanced intake and output will improve Not Progressing ??? Will maintain adequate fluid volume Not Progressing ??? Signs and symptoms of dehydration will decrease Not Progressing Health Behavior: ??? Understanding of discharge needs will improve Not Progressing Lack of Knowledge: ??? Knowledge of diagnostic tests will improve Not Progressing ??? Knowledge of disease or condition will improve Not Progressing ??? Knowledge of safety precautions will improve Not Progressing ??? Knowledge of the prescribed therapeutic regimen will improve Not Progressing Lack of Knowledge: ??? Ability to describe self-care measures that may prevent or decrease complications will improve Not Progressing ??? Ability to manage health-related needs will improve Not Progressing ??? Ability to identify and alter actions that are detrimental to health will improve Not Progressing ??? Knowledge of prevention and discharge planning will improve Not Progressing ??? Knowledge of disease or condition will improve Not Progressing ??? Knowledge of the prescribed therapeutic regimen will improve Not Progressing Metabolic: ??? Ability to maintain appropriate glucose levels will improve Not Progressing ??? Diagnostic test results will improve Not Progressing ??? Complications related to the disease process, condition or treatment will be avoided or minimized Not Progressing Nutritional: ??? Maintenance of adequate nutrition will improve Not Progressing ??? Maintenance of adequate weight for body size and type will improve Not Progressing Physical Regulation: ??? Ability to maintain clinical measurements within normal limits will improve Not Progressing Physical Regulation: ??? Will regain or maintain usual level of consciousness Not Progressing ??? Will not experience complications related to bowel motility Not Progressing ??? Pain level will decrease Not Progressing ??? Will remain free from infection Not Progressing Urinary Elimination: ??? Ability to achieve and maintain adequate renal perfusion and functioning will improve Not Progressing Goals: Free from injury, contolled n/v and controlled blood sugars Summary: Pt is still vomiting, meds given and GI consulted. Blood sugars controlled. CH SETTER * Plan of Care - Chey Perez RN - 06/01/2018 3:30 AM CST Goals: Clinical Goals for the Shift: no N/V, VSS, glucose stable, patient comfort Summary: Patient states no N/V. VSS. Glucose elevated and sliding scale insulin given, patient states no pain. Patient remains to appear to have a flat affect but did talk a little bit. She Once again refused her bath but did ask for some snacks to eat. C-diff stool sent and negative. Patient has adequate urine output. Will continue to monitor patient status and labs and keep pt included in plan of care. Social work to see pt again today. Activity: ??? Ability to perform activities of daily living will improve Not Progressing ??? Will verbalize the importance of balancing activity with adequate rest periods Not Progressing Health Behavior: ??? Understanding of discharge needs will improve Not Progressing Lack of Knowledge: ??? Knowledge of diagnostic tests will improve Not Progressing ??? Knowledge of disease or condition will improve Not Progressing ??? Knowledge of the prescribed therapeutic regimen will improve Not Progressing Lack of Knowledge: ??? Ability to describe self-care measures that may prevent or decrease complications will improve Not Progressing ??? Ability to manage health-related needs will improve Not Progressing ??? Ability to identify and alter actions that are detrimental to health will improve Not Progressing ??? Knowledge of prevention and discharge planning will improve Not Progressing ??? Knowledge of disease or condition will improve Not Progressing Metabolic: ??? Complications related to the disease process, condition or treatment will be avoided or minimized Not Progressing Nutritional: ??? Maintenance of adequate nutrition will improve Not Progressing ??? Maintenance of adequate weight for body size and type will improve Not Progressing Physical Regulation: ??? Ability to maintain clinical measurements within normal limits will improve Not Progressing Activity: ??? Risk for activity intolerance will decrease Progressing Cardiac: ??? Ability to maintain an adequate cardiac output will improve Progressing Fluid Volume: ??? Ability to achieve a balanced intake and output will improve Progressing ??? Will maintain adequate fluid volume Progressing ??? Signs and symptoms of dehydration will decrease Progressing Health Behavior: ??? Ability to state signs and symptoms to report to health care provider will improve Progressing Lack of Knowledge: ??? Knowledge of safety precautions will improve Progressing Lack of Knowledge: ??? Knowledge of the prescribed therapeutic regimen will improve Progressing Metabolic: ??? Ability to maintain appropriate glucose levels will improve Progressing ??? Diagnostic test results will improve Progressing Physical Regulation: ??? Will regain or maintain usual level of consciousness Progressing ??? Will not experience complications related to bowel motility Progressing ??? Pain level will decrease Progressing Respiratory: ??? Respiratory status will improve Progressing ??? Ability to maintain adequate ventilation will improve Progressing ??? Peripheral tissue perfusion will improve Progressing Urinary Elimination: ??? Ability to achieve and maintain adequate renal perfusion and functioning will improve Progressing CH SETTER * Plan of Care - Audelia Ceballos RN - 05/31/2018 6:36 PM CST Activity: ??? Risk for activity intolerance will decrease Not Progressing Activity: ??? Ability to perform activities of daily living will improve Not Progressing ??? Will verbalize the importance of balancing activity with adequate rest periods Not Progressing Cardiac: ??? Ability to maintain an adequate cardiac output will improve Not Progressing Fluid Volume: ??? Ability to achieve a balanced intake and output will improve Not Progressing ??? Will maintain adequate fluid volume Not Progressing ??? Signs and symptoms of dehydration will decrease Not Progressing Health Behavior: ??? Understanding of discharge needs will improve Not Progressing Health Behavior: ??? Ability to state signs and symptoms to report to health care provider will improve Not Progressing Lack of Knowledge: ??? Knowledge of diagnostic tests will improve Not Progressing ??? Knowledge of disease or condition will improve Not Progressing ??? Knowledge of safety precautions will improve Not Progressing ??? Knowledge of the prescribed therapeutic regimen will improve Not Progressing Lack of Knowledge: ??? Ability to describe self-care measures that may prevent or decrease complications will improve Not Progressing ??? Ability to manage health-related needs will improve Not Progressing ??? Ability to identify and alter actions that are detrimental to health will improve Not Progressing ??? Knowledge of prevention and discharge planning will improve Not Progressing ??? Knowledge of disease or condition will improve Not Progressing ??? Knowledge of the prescribed therapeutic regimen will improve Not Progressing Metabolic: ??? Diagnostic test results will improve Not Progressing ??? Complications related to the disease process, condition or treatment will be avoided or minimized Not Progressing Nutritional: ??? Maintenance of adequate nutrition will improve Not Progressing ??? Maintenance of adequate weight for body size and type will improve Not Progressing Physical Regulation: ??? Ability to maintain clinical measurements within normal limits will improve Not Progressing Physical Regulation: ??? Will regain or maintain usual level of consciousness Not Progressing ??? Will not experience complications related to bowel motility Not Progressing ??? Pain level will decrease Not Progressing ??? Will remain free from infection Not Progressing Goals: Clinical Goals for the Shift: Patient has less nausea and vomiting, VSS, Blood sugars stable, patient comfort Summary: Patient remains withdrawn and very quiet this shift. Patient still refuses to bath. Patient remains nauseous and has no appetite. Patient did eat a few snacks this shift. IVFs infusing. VSS at this time. Patient up to toilet with SBA. CH SETTER * Plan of Care - Soniya Katz MSW - 05/31/2018 2:40 PM CST SW consulted following dcam report from nursing staff sharing concerns about pt's behavior & mood. Pt does not interact with staff, only responds yes or no to questions, has a flat affect, and has refused to bathe for the past 5 days. Concern if pt is depressed. SW attempted twice to complete a psychosocial assessment. First attempt pt was on Facetime call with her daughter and asked SW to come back later. Returned an hour later and pt was sleeping. SW and RN awakened pt. She agreed to talk to SW but would not open her eyes to answer questions and only responded with yes or no . She lives with her grandma and 2 year old daughter. Her mother is involved in her life as a support system. Pt answered only no when asked if any history of mental illness, abuse/neglect/trauma, DFS involvement, or any social service agency involvement. 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 Pt refused to provide any detailed information. Her affect was flat throughout conversation, and even noted to be the same while she was on Facetime with her daughter. SW left pt to return to sleep and informed her I will check in on her prior to dc. CH SETTER * Plan of Care - Kita Harp RN - 05/31/2018 3:23 AM CST Activity: ??? Risk for activity intolerance will decrease Not Progressing Activity: ??? Ability to perform activities of daily living will improve Not Progressing ??? Will verbalize the importance of balancing activity with adequate rest periods Not Progressing Cardiac: ??? Ability to maintain an adequate cardiac output will improve Not Progressing Fluid Volume: ??? Ability to achieve a balanced intake and output will improve Not Progressing ??? Will maintain adequate fluid volume Not Progressing ??? Signs and symptoms of dehydration will decrease Not Progressing Health Behavior: ??? Understanding of discharge needs will improve Not Progressing Health Behavior: ??? Ability to state signs and symptoms to report to health care provider will improve Not Progressing Lack of Knowledge: ??? Knowledge of diagnostic tests will improve Not Progressing ??? Knowledge of disease or condition will improve Not Progressing ??? Knowledge of safety precautions will improve Not Progressing ??? Knowledge of the prescribed therapeutic regimen will improve Not Progressing Lack of Knowledge: ??? Ability to describe self-care measures that may prevent or decrease complications will improve Not Progressing ??? Ability to manage health-related needs will improve Not Progressing ??? Ability to identify and alter actions that are detrimental to health will improve Not Progressing ??? Knowledge of prevention and discharge planning will improve Not Progressing ??? Knowledge of disease or condition will improve Not Progressing ??? Knowledge of the prescribed therapeutic regimen will improve Not Progressing Metabolic: ??? Diagnostic test results will improve Not Progressing ??? Complications related to the disease process, condition or treatment will be avoided or minimized Not Progressing Nutritional: ??? Maintenance of adequate nutrition will improve Not Progressing ??? Maintenance of adequate weight for body size and type will improve Not Progressing Physical Regulation: ??? Ability to maintain clinical measurements within normal limits will improve Not Progressing Physical Regulation: ??? Will regain or maintain usual level of consciousness Not Progressing ??? Will not experience complications related to bowel motility Not Progressing ??? Pain level will decrease Not Progressing ??? Will remain free from infection Not Progressing Metabolic: ??? Ability to maintain appropriate glucose levels will improve Progressing Respiratory: ??? Respiratory status will improve Progressing ??? Ability to maintain adequate ventilation will improve Progressing ??? Peripheral tissue perfusion will improve Progressing Urinary Elimination: ??? Ability to achieve and maintain adequate renal perfusion and functioning will improve Progressing Goals: Clinical Goals for the Shift: Pt compliance with treatment Summary: Patient has been intermittently con-compliant with treatment and medications since admission, but is becoming more-so. Plan to complete labwork this morning and determine if she may need to be put back on insulin drip. If patient does start to eat or drink soon she may also need to be backon IV fluids. Pt had some loose stools yesterday and the day before and has been running fevers. Nostools yet tonight, but if she has one it will be sent for cdiff testing. Will continue to encourage pt to be compliant with treatment and eat and drink as tolerated. CH SETTER * Plan of Care - Ida Hair RN - 05/30/2018 3:35 PM CST Activity: ??? Risk for activity intolerance will decrease Not Progressing Activity: ??? Ability to perform activities of daily living will improve Not Progressing ??? Will verbalize the importance of balancing activity with adequate rest periods Not Progressing Health Behavior: ??? Understanding of discharge needs will improve Not Progressing Health Behavior: ??? Ability to state signs and symptoms to report to health care provider will improve Not Progressing Lack of Knowledge: ??? Knowledge of disease or condition will improve Not Progressing ??? Knowledge of the prescribed therapeutic regimen will improve Not Progressing Lack of Knowledge: ??? Ability to describe self-care measures that may prevent or decrease complications will improve Not Progressing ??? Ability to manage health-related needs will improve Not Progressing ??? Ability to identify and alter actions that are detrimental to health will improve Not Progressing ??? Knowledge of prevention and discharge planning will improve Not Progressing ??? Knowledge of the prescribed therapeutic regimen will improve Not Progressing Nutritional: ??? Maintenance of adequate nutrition will improve Not Progressing Physical Regulation: ??? Ability to maintain clinical measurements within normal limits will improve Not Progressing Physical Regulation: ??? Will not experience complications related to bowel motility Not Progressing Cardiac: ??? Ability to maintain an adequate cardiac output will improve Progressing Fluid Volume: ??? Ability to achieve a balanced intake and output will improve Progressing ??? Will maintain adequate fluid volume Progressing ??? Signs and symptoms of dehydration will decrease Progressing Lack of Knowledge: ??? Knowledge of diagnostic tests will improve Progressing ??? Knowledge of safety precautions will improve Progressing Lack of Knowledge: ??? Knowledge of disease or condition will improve Progressing Metabolic: ??? Ability to maintain appropriate glucose levels will improve Progressing ??? Diagnostic test results will improve Progressing ??? Complications related to the disease process, condition or treatment will be avoided or minimized Progressing Nutritional: ??? Maintenance of adequate weight for body size and type will improve Progressing Physical Regulation: ??? Will regain or maintain usual level of consciousness Progressing ??? Pain level will decrease Progressing ??? Will remain free from infection Progressing Respiratory: ??? Respiratory status will improve Progressing ??? Ability to maintain adequate ventilation will improve Progressing ??? Peripheral tissue perfusion will improve Progressing Urinary Elimination: ??? Ability to achieve and maintain adequate renal perfusion and functioning will improve Progressing Goals: Clinical Goals for the Shift: vital signs and blood sugars stable, no nausea or vomiting, increase dietary intake, D/C insulin gtt and resume SQ insulin, comfort and safety Summary: Blood pressure and HR have been elevated since approx 1330. Pt has been vomiting intermittently, pt denies nausea or abd pain. Pt ate only few bites of her lunch stating that the food didn'ttaste good. Offered to get pt something else she would like. Pt refuses anything else. Temp increased to 101.7F at 1430. Dr. Sloan aware. Pt refused both oral and rectal tylenol. Insulin gtt off si nce 1030. FSBS have remained stable. Pt refuses to bathe or oral hygiene. Pt turning self in bed. Up to toilet. Gait steady. CH SETTER * Plan of Care - Kita Harp RN - 05/30/2018 3:29 AM CST Activity: ??? Risk for activity intolerance will decrease Progressing Health Behavior: ??? Understanding of discharge needs will improve Progressing Health Behavior: ??? Ability to state signs and symptoms to report to health care provider will improve Progressing Lack of Knowledge: ??? Knowledge of diagnostic tests will improve Progressing ??? Knowledge of disease or condition will improve Progressing ??? Knowledge of safety precautions will improve Progressing ??? Knowledge of the prescribed therapeutic regimen will improve Progressing Physical Regulation: ??? Ability to maintain clinical measurements within normal limits will improve Progressing Goals: Clinical Goals for the Shift: no nausea/vomiting, control blood sugar Summary: Patient has refused her PO k-phos supplement all night. She has not had any nausea or vomiting, but has had some diarrhea. Her blood sugar has been stable. Her anion gap has closed and her CO2 is starting to normalize. Will continue with IV hydration and supportive care until patient's labwork and symptoms stabilize. CH SETTER * Plan of Care - Marilyn Crawford RN - 05/29/2018 3:19 PM CST Goals: Clinical Goals for the Shift: manage BG, stable vs, safety and comfort Summary: Patient was restarted on insulin drip this AM. We will continue to monitor BG and make changes according to glucostabilizer. Dr. Sloan wants to manage patient throughout the night and also when drip gets to one we are not to lower it or stop the drip. Patient is in the process of getting a picc line and the plan is then to go to CT for exams. We changed her Reglan to compazine but patient is still vomiting periodically. Patient is shy but is more quiet today and she stated that she just doesn't feel like talking today . She has been very sleepy but easily aroused and follows commands and is pleasant. Physical Regulation: ??? Ability to maintain clinical measurements within normal limits will improve Not Progressing Activity: ??? Risk for activity intolerance will decrease Progressing Health Behavior: ??? Understanding of discharge needs will improve Progressing Health Behavior: ??? Ability to state signs and symptoms to report to health care provider will improve Progressing Lack of Knowledge: ??? Knowledge of diagnostic tests will improve Progressing ??? Knowledge of disease or condition will improve Progressing ??? Knowledge of safety precautions will improve Progressing ??? Knowledge of the prescribed therapeutic regimen will improve Progressing CH SETTER * Plan of Care - Winter Garcia RN - 05/29/2018 5:00 AM CST Goals: Clinical Goals for the Shift: control blood sugar and nausea Summary: Blood sugar remains controlled, but still having several bouts of nausea and vomiting. CH SETTER * Plan of Care - Marilyn Crawford RN - 05/28/2018 6:56 PM CST Goals: Clinical Goals for the Shift: manage blood sugar Summary: Patient had broth this evening and has not vomited at this time. The insulin drip has beenshut off and we will continue to monitor labs and pt and make changes accordingly. Activity: ??? Risk for activity intolerance will decrease Progressing Health Behavior: ??? Understanding of discharge needs will improve Progressing Health Behavior: ??? Ability to state signs and symptoms to report to health care provider will improve Progressing Lack of Knowledge: ??? Knowledge of diagnostic tests will improve Progressing ??? Knowledge of disease or condition will improve Progressing ??? Knowledge of safety precautions will improve Progressing ??? Knowledge of the prescribed therapeutic regimen will improve Progressing Physical Regulation: ??? Ability to maintain clinical measurements within normal limits will improve Progressing CH SETTER * Plan of Care - Charisma Crawford RN - 05/28/2018 5:01 AM CST Goals: Clinical Goals for the Shift: Patient to exhibit stable VS, to have glucose readings that are trending downwards and to remain free from injury this shift. Summary: Patient has demonstrated stable VS, with interval increase in HR, with retching. Patient has had a decrease in glucose readings while on glucostabilizer/insulin drip. Patient's blood glucosereadings are trending upward with discontinuation of insulin drip. Patient's IV orders have changedand carried out as noted. Patient continues to retch occasionally, yellowish, clear fluid in small and medium amounts. Patient has remained injury free this shift. Activity: ??? Risk for activity intolerance will decrease Progressing Health Behavior: ??? Understanding of discharge needs will improve Progressing Health Behavior: ??? Ability to state signs and symptoms to report to health care provider will improve Progressing Lack of Knowledge: ??? Knowledge of diagnostic tests will improve Progressing ??? Knowledge of disease or condition will improve Progressing ??? Knowledge of safety precautions will improve Progressing ??? Knowledge of the prescribed therapeutic regimen will improve Progressing Physical Regulation: ??? Ability to maintain clinical measurements within normal limits will improve Progressing CH SETTER * Plan of Care - Isaura Quiroz RN - 05/27/2018 7:42 PM CST Activity: ??? Risk for activity intolerance will decrease Progressing Health Behavior: ??? Understanding of discharge needs will improve Progressing Health Behavior: ??? Ability to state signs and symptoms to report to health care provider will improve Progressing Lack of Knowledge: ??? Knowledge of diagnostic tests will improve Progressing ??? Knowledge of disease or condition will improve Progressing ??? Knowledge of safety precautions will improve Progressing ??? Knowledge of the prescribed therapeutic regimen will improve Progressing Physical Regulation: ??? Ability to maintain clinical measurements within normal limits will improve Progressing Goals: Clinical Goals for the Shift: Stable vital signs, maintain comfort, normalize lab work Summary: Patient's vital signs have remained stable this shift. Patient has still been experiencingnausea off and on this shift. Potassium is low and potassium replacement was started. Patient was unable to receive IV potassium phosphates due to only having one IV site and multiple RN's being unable to obtain another site. CH SETTER * Plan of Care - Sandra Perla RN - 05/27/2018 3:07 AM CST Goals: Clinical Goals for the Shift: Pt to remain hemodynamically stable and free from injury. Summary: Pt currently resting in bed on insulin drip. Nausea and vomiting improving, but still present. Pt glucose levels are holding under 150 currently. Pt a/o x4 with improving nausea and vomiting. Continue to monitor and medicate as ordered. [facility] SETTER documented in this encounter Plan of Treatment Pending Results Name Type Priority Associated Diagnoses Date /Time Hepatic function panel Lab Routine 7:02 AM [facility] documented as of this encounter Procedures Procedure Name Priority Date/Time Associated Diagnosis Comments POCT GLUCOSE DEVICE Routine 06/02/2018 1 2:00 PM [facility] POCT GLUCOSE DEVICE Routine 06/02/2018 8 :01 AM [facility] EGFR Routine 06/02/2018 5:17 AM [facility] CBC WITHOUT DIFFERENTIAL Routine 06/02/2018 5:17 AM [facility] PHOSPHORUS Routine 06/02/2018 5:17 AM [facility] MAGNESIUM Routine 06/02/2018 5:17 AM [facility] BASIC METABOLIC PANEL Routine 06/02/2018 5:17 AM [facility] POCT GLUCOSE DEVICE Routine 06/02/2018 2 :19 AM [facility] POCT GLUCOSE DEVICE Routine 06/01/2018 8 :38 PM [facility] POCT GLUCOSE DEVICE Routine 06/01/2018 4 :43 PM [facility] URINALYSIS AND REFLEX TO MICROSCOPIC Routine 06/01/2018 3:27 PM [facility] URINALYSIS, MICROSCOPIC ONLY Routine 06/01/2018 3:27 PM [facility] POCT GLUCOSE DEVICE Routine 06/01/2018 1 0:48 AM [facility] POCT GLUCOSE DEVICE Routine 06/01/2018 7 :47 AM [facility] EGFR Routine 06/01/2018 4:26 AM [facility] CBC WITHOUT DIFFERENTIAL Routine 06/01/2018 4:26 AM [facility] PHOSPHORUS Routine 06/01/2018 4:26 AM [facility] MAGNESIUM Routine 06/01/2018 4:26 AM [facility] BASIC METABOLIC PANEL Routine 06/01/2018 4:26 AM [facility] POCT GLUCOSE DEVICE Routine 06/01/2018 4 :21 AM [facility] POCT GLUCOSE DEVICE Routine 05/31/2018 9 :56 PM [facility] CLOSTRIDIUM DIFFICILE ASSAY Routine 05/31/2018 9:07 PM [facility] POCT GLUCOSE DEVICE Routine 05/31/2018 6 :48 PM [facility] POCT GLUCOSE DEVICE Routine 05/31/2018 5 :09 PM [facility] POCT GLUCOSE DEVICE Routine 05/31/2018 3 :23 PM [facility] POCT GLUCOSE DEVICE Routine 05/31/2018 1 2:10 PM [facility] TRANSTHORACIC ECHO (TTE) COMPLETE W DOPPLER/CF WO CONTRAST Routine 05/31/2018 11:10 AM [facility] ECG 12-LEAD Routine 05/31/2018 10:35 AM [facility] POCT GLUCOSE DEVICE Routine 05/31/2018 7 :59 AM [facility] EGFR Routine 05/31/2018 6:11 AM [facility] CBC WITHOUT DIFFERENTIAL Routine 05/31/2018 6:11 AM [facility] PHOSPHORUS Routine 05/31/2018 6:11 AM [facility] MAGNESIUM Routine 05/31/2018 6:11 AM [facility] BASIC METABOLIC PANEL Routine 05/31/2018 6:11 AM [facility] POCT GLUCOSE DEVICE Routine 05/30/2018 8 :42 PM [facility] POCT GLUCOSE DEVICE Routine 05/30/2018 5 :36 PM [facility] BLOOD CULTURE Routine 05/30/2018 4:12 PM [facility] POCT GLUCOSE DEVICE Routine 05/30/2018 4 :03 PM [facility] BLOOD CULTURE Routine 05/30/2018 3:21 PM [facility] POCT GLUCOSE DEVICE Routine 05/30/2018 2 :26 PM [facility] POCT GLUCOSE DEVICE Routine 05/30/2018 1 :26 PM [facility] POTASSIUM LEVEL Routine 05/30/2018 1:02 PM [facility] POCT GLUCOSE DEVICE Routine 05/30/2018 1 2:03 PM [facility] POCT GLUCOSE DEVICE Routine 05/30/2018 1 0:38 AM [facility] POCT GLUCOSE DEVICE Routine 05/30/2018 9 :35 AM [facility] POCT GLUCOSE DEVICE Routine 05/30/2018 8 :37 AM [facility] EGFR Timed 05/30/2018 7:46 AM [facility] CBC WITHOUT DIFFERENTIAL Routine 05/30/2018 7:46 AM [facility] PHOSPHORUS Timed 05/30/2018 7:46 AM [facility] MAGNESIUM Timed 05/30/2018 7:46 AM [facility] BASIC METABOLIC PANEL Timed 05/30/2018 7:46 AM [facility] POCT GLUCOSE DEVICE Routine 05/30/2018 7 :39 AM [facility] POCT GLUCOSE DEVICE Routine 05/30/2018 6 :31 AM [facility] POCT GLUCOSE DEVICE Routine 05/30/2018 5 :28 AM [facility] POCT GLUCOSE DEVICE Routine 05/30/2018 4 :06 AM [facility] POCT GLUCOSE DEVICE Routine 05/30/2018 3 :06 AM [facility] POCT GLUCOSE DEVICE Routine 05/30/2018 2 :08 AM [facility] POCT GLUCOSE DEVICE Routine 05/30/2018 1 :05 AM [facility] EGFR Timed 05/30/2018 12:13 AM [facility] PHOSPHORUS Timed 05/30/2018 12:13 AM [facility] MAGNESIUM Timed 05/30/2018 12:13 AM [facility] BASIC METABOLIC PANEL Timed 05/30/2018 12:13 AM [facility] POCT GLUCOSE DEVICE Routine 05/30/2018 1 2:10 AM [facility] POCT GLUCOSE DEVICE Routine 05/29/2018 1 1:03 PM [facility] POCT GLUCOSE DEVICE Routine 05/29/2018 1 0:06 PM [facility] POCT GLUCOSE DEVICE Routine 05/29/2018 8 :56 PM [facility] EGFR Timed 05/29/2018 8:18 PM [facility] PHOSPHORUS Timed 05/29/2018 8:18 PM [facility] MAGNESIUM Timed 05/29/2018 8:18 PM [facility] BASIC METABOLIC PANEL Timed 05/29/2018 8:18 PM [facility] POCT GLUCOSE DEVICE Routine 05/29/2018 7 :51 PM [facility] POCT GLUCOSE DEVICE Routine 05/29/2018 6 :34 PM [facility] POCT GLUCOSE DEVICE Routine 05/29/2018 5 :[address] CHEST PE W CONTRAST IP Routine 05/29/2018 5:[address] ABDOMEN PELVIS W CONTRAST IP Routine 05/29/2018 5:06 PM [facility] POCT GLUCOSE DEVICE Routine 05/29/2018 4 :00 PM [facility] EGFR Timed 05/29/2018 3:54 PM [facility] PHOSPHORUS Timed 05/29/2018 3:54 PM [facility] MAGNESIUM Timed 05/29/2018 3:54 PM [facility] BASIC METABOLIC PANEL Timed 05/29/2018 3:54 PM [facility] POCT GLUCOSE DEVICE Routine 05/29/2018 2 :37 PM [facility] POCT GLUCOSE DEVICE Routine 05/29/2018 1 :39 PM [facility] POCT GLUCOSE DEVICE Routine 05/29/2018 1 2:34 PM [facility] EGFR Timed 05/29/2018 11:44 AM [facility] PHOSPHORUS Timed 05/29/2018 11:44 AM [facility] MAGNESIUM Timed 05/29/2018 11:44 AM [facility] BASIC METABOLIC PANEL Timed 05/29/2018 11:44 AM [facility] POCT GLUCOSE DEVICE Routine 05/29/2018 1 1:36 AM [facility] POCT GLUCOSE DEVICE Routine 05/29/2018 1 0:32 AM [facility] POCT GLUCOSE DEVICE Routine 05/29/2018 9 :13 AM [facility] EGFR Routine 05/29/2018 4:39 AM [facility] CBC WITHOUT DIFFERENTIAL Routine 05/29/2018 4:39 AM [facility] PHOSPHORUS Routine 05/29/2018 4:39 AM [facility] MAGNESIUM Routine 05/29/2018 4:39 AM [facility] BASIC METABOLIC PANEL Routine 05/29/2018 4:39 AM [facility] LIPASE Add-On 05/29/2018 4:36 AM [facility] POCT GLUCOSE DEVICE Routine 05/28/2018 9 :11 PM [facility] POCT GLUCOSE DEVICE Routine 05/28/2018 5 :32 PM [facility] POCT GLUCOSE DEVICE Routine 05/28/2018 4 :28 PM [facility] EGFR Timed 05/28/2018 4:03 PM [facility] PROTIME-INR Routine 05/28/2018 4:03 PM [facility] PHOSPHORUS Timed 05/28/2018 4:03 PM [facility] MAGNESIUM Timed 05/28/2018 4:03 PM [facility] BASIC METABOLIC PANEL Timed 05/28/2018 4:03 PM [facility] POCT GLUCOSE DEVICE Routine 05/28/2018 3 :22 PM [facility] POCT GLUCOSE DEVICE Routine 05/28/2018 2 :24 PM [facility] POCT GLUCOSE DEVICE Routine 05/28/2018 1 :17 PM [facility] EGFR Timed 05/28/2018 12:51 PM [facility] PHOSPHORUS Timed 05/28/2018 12:51 PM [facility] MAGNESIUM Timed 05/28/2018 12:51 PM [facility] BASIC METABOLIC PANEL Timed 05/28/2018 12:51 PM [facility] POCT GLUCOSE DEVICE Routine 05/28/2018 1 2:27 PM [facility] POCT GLUCOSE DEVICE Routine 05/28/2018 1 1:14 AM BROACH SETTER POCT GLUCOSE DEVICE Routine 05/28/2018 1 0:22 AM BROACH SETTER LACTATE Add-On 05/28/2018 9:50 AM BROACH SETTER BLOOD GAS, ARTERIAL STAT 05/28/2018 9 :50 AM BROACH SETTER EGFR Routine 05/28/2018 7:02 AM BROACH SETTER VITAMIN D 25 HYDROXY Routine 05/28/2018 7:02 AM BROACH SETTER CBC WITHOUT DIFFERENTIAL Routine 05/28/2018 7:02 AM BROACH SETTER PHOSPHORUS Routine 05/28/2018 7:02 AM BROACH SETTER MAGNESIUM Routine 05/28/2018 7:02 AM BROACH SETTER BILIRUBIN, DIRECT Routine 05/28/2018 7:0 2 AM BROACH SETTER COMPREHENSIVE METABOLIC PANEL Routine 05/28/2018 7:02 AM BROACH SETTER POCT GLUCOSE DEVICE Routine 05/28/2018 6 :34 AM BROACH SETTER POCT GLUCOSE DEVICE Routine 05/28/2018 4 :40 AM BROACH SETTER POCT GLUCOSE DEVICE Routine 05/28/2018 3 :29 AM BROACH SETTER POCT GLUCOSE DEVICE Routine 05/28/2018 3 :28 AM BROACH SETTER POCT GLUCOSE DEVICE Routine 05/28/2018 2 :23 AM BROACH SETTER POCT GLUCOSE DEVICE Routine 05/28/2018 1 :22 AM BROACH SETTER POCT GLUCOSE DEVICE Routine 05/28/2018 1 2:21 AM BROACH SETTER EGFR Timed 05/28/2018 12:00 AM BROACH SETTER BASIC METABOLIC PANEL Timed 05/28/2018 12:00 AM BROACH SETTER POCT GLUCOSE DEVICE Routine 05/27/2018 1 1:20 PM BROACH SETTER POCT GLUCOSE DEVICE Routine 05/27/2018 1 0:16 PM BROACH SETTER POCT GLUCOSE DEVICE Routine 05/27/2018 9 :01 PM BROACH SETTER POCT GLUCOSE DEVICE Routine 05/27/2018 8 :00 PM BROACH SETTER POCT GLUCOSE DEVICE Routine 05/27/2018 7 :10 PM BROACH SETTER EGFR Timed 05/27/2018 6:15 PM BROACH SETTER BASIC METABOLIC PANEL Timed 05/27/2018 6:15 PM BROACH SETTER POCT GLUCOSE DEVICE Routine 05/27/2018 6 :08 PM BROACH SETTER POCT GLUCOSE DEVICE Routine 05/27/2018 5 :13 PM BROACH SETTER POCT GLUCOSE DEVICE Routine 05/27/2018 4 :12 PM BROACH SETTER POCT GLUCOSE DEVICE Routine 05/27/2018 2 :46 PM BROACH SETTER POCT GLUCOSE DEVICE Routine 05/27/2018 1 :48 PM BROACH SETTER EGFR Routine 05/27/2018 1:13 PM BROACH SETTER PHOSPHORUS Routine 05/27/2018 1:13 PM BROACH SETTER MAGNESIUM Routine 05/27/2018 1:13 PM BROACH SETTER HEMOGLOBIN A1C Routine 05/27/2018 1:13 PM BROACH SETTER BASIC METABOLIC PANEL Routine 05/27/2018 1:13 PM BROACH SETTER POCT GLUCOSE DEVICE Routine 05/27/2018 1 2:45 PM BROACH SETTER POCT GLUCOSE DEVICE Routine 05/27/2018 1 1:50 AM BROACH SETTER POCT GLUCOSE DEVICE Routine 05/27/2018 1 0:48 AM BROACH SETTER POCT GLUCOSE DEVICE Routine 05/27/2018 9 :48 AM BROACH SETTER POCT GLUCOSE DEVICE Routine 05/27/2018 8 :53 AM BROACH SETTER POCT GLUCOSE DEVICE Routine 05/27/2018 7 :52 AM BROACH SETTER POCT GLUCOSE DEVICE Routine 05/27/2018 6 :51 AM BROACH SETTER ECG 12-LEAD Routine 05/27/2018 6:22 AM BROACH SETTER Type 1 diabetes mellitus with ketoacidosis without coma ([facility]) POCT GLUCOSE DEVICE Routine 05/27/2018 5 :54 AM BROACH SETTER POCT GLUCOSE DEVICE Routine 05/27/2018 4 :56 AM BROACH SETTER EGFR Routine 05/27/2018 4:28 AM BROACH SETTER DIFFERENTIAL AUTO Routine 05/27/2018 4:2 8 AM BROACH SETTER CBC WITH AUTO DIFFERENTIAL Routine 05/27/2018 4:28 AM BROACH SETTER BASIC METABOLIC PANEL Routine 05/27/2018 4:28 AM BROACH SETTER POCT GLUCOSE DEVICE Routine 05/27/2018 4 :00 AM BROACH SETTER POCT GLUCOSE DEVICE Routine 05/27/2018 2 :52 AM BROACH SETTER POCT GLUCOSE DEVICE Routine 05/27/2018 1 :57 AM BROACH SETTER POCT GLUCOSE DEVICE Routine 05/27/2018 1 2:53 AM BROACH SETTER POCT GLUCOSE DEVICE Routine 05/26/2018 1 1:58 PM BROACH SETTER POCT GLUCOSE DEVICE Routine 05/26/2018 1 1:07 PM BROACH SETTER POCT GLUCOSE DEVICE Routine 05/26/2018 1 0:02 PM BROACH SETTER POCT GLUCOSE DEVICE Routine 05/26/2018 8 :54 PM BROACH SETTER POCT GLUCOSE DEVICE Routine 05/26/2018 8 :03 PM BROACH SETTER EGFR STAT 05/26/2018 7:03 PM BROACH SETTER BLOOD GAS, VENOUS STAT 05/26/2018 7:0 3 PM BROACH SETTER BASIC METABOLIC PANEL STAT 05/26/2018 7:03 PM BROACH SETTER POCT GLUCOSE DEVICE Routine 05/26/2018 7 :02 PM BROACH SETTER POCT GLUCOSE DEVICE Routine 05/26/2018 6 :28 PM BROACH SETTER URINALYSIS AND REFLEX TO MICROSCOPIC AND CULTURE STAT 05/26/2018 4:27 PM BROACH SETTER HCG, URINE, QUALITATIVE STAT 05/26/2018 4:27 PM BROACH SETTER URINALYSIS, MICROSCOPIC ONLY STAT 05/26/2018 4:27 PM BROACH SETTER URINE CULTURE STAT 05/26/2018 4:27 PM BROACH SETTER POCT GLUCOSE DEVICE Routine 05/26/2018 4 :19 PM BROACH SETTER EGFR STAT 05/26/2018 2:44 PM BROACH SETTER DIFFERENTIAL AUTO STAT 05/26/2018 2:4 4 PM BROACH SETTER CBC WITH AUTO DIFFERENTIAL STAT 05/26/2018 2:44 PM BROACH SETTER LIPASE STAT 05/26/2018 2:44 PM BROACH SETTER HEPATIC FUNCTION PANEL STAT 05/26/2018 2:44 PM BROACH SETTER BASIC METABOLIC PANEL STAT 05/26/2018 2:44 PM BROACH SETTER POCT GLUCOSE DEVICE Routine 05/26/2018 2 :21 PM BROACH SETTER documented in this encounter Results * (ABNORMAL) POCT glucose (06/02/2018 12:00 PM BROACH SETTER) Glucose, POC 294(H) 71 - 98 mg/dL TOMY SAHU ([place]) Blood specimen (specimen) 06/02/2018 12:00 PM BROACH SETTER 06/02/2018 12:00 PM BROACH SETTER Narrative TOMY LUQUE) - 06/02/2018 12:02 PM BROACH SETTER Eddie Pulido MD LAB POCT ORDERABLES - DEVICE Final Result [place] 1 [facility] [employer] [place] [address] * (ABNORMAL) POCT glucose (06/02/2018 8:01 AM BROACH SETTER) Glucose, POC 194(H) 71 - 98 mg/dL TOMY SAHU ([place]) Blood specimen (specimen) 06/02/2018 8:01 AM BROACH SETTER 06/02/2018 8:01 AM BROACH SETTER Narrative [place]) - 06/02/2018 8:02 AM BROACH SETTER Eddie Pulido MD LAB POCT ORDERABLES - DEVICE Final Result Performing Organization Address City/[facility] Co de Phone Number TOMY SAHU ([place]) 1 [facility] [place] [employer] [place] [address] * eGFR (06/02/2018 5:17 AM BROACH SETTER) eGFR 157 mL/min/1.7 3 m2 TOMY SAHU ([place]) Comment: Interpretive Data Reference Interval Normal ?>/= 90 mL/min/1.73m2 Mildly decreased* ? 60 - 89 mL/min/1.73m2 Mildly to moderately decreased ?45 - 59 mL/min/1.73m2 Moderately to severely decreased ??30 - 44 mL/min/1.73m2 Severely decreased ?15 - 29 mL/min/1.73m2 Kidney Failure ?< 15 ??mL/min/1.73m2 *Relative to young adult level If -Faroese multiply value by 1.16. Estimated glomerular filtration [...] was last reviewed 2015. Blood specimen (specimen) 06/02/2018 5:17 AM BROACH SETTER 06/02/2018 5:21 AM BROACH SETTER Narrative [facility]Y [facility] ([place]) - 06/02/2018 5:36 AM BROACH SETTER Josette Sloan MD LAB BLOOD ORDERABLES Fin al Result TOMY SAHU ([place]) [address] [place] [address] [place] [address] * Phosphorus (06/02/2018 5:17 AM BROACH SETTER) Phosphorus, pl 2.9 2.3 - 4.5 mg/dL TOMY [facility] ([place]) Blood specimen (specimen) 06/02/2018 5:17 AM BROACH SETTER 06/02/2018 5:21 AM BROACH SETTER Narrative TOMY [facility] ([place]) - 06/02/2018 5:36 AM BROACH SETTER Josette Sloan MD LAB BLOOD ORDERABLES Fin al Result TOMY SAHU ([place]) [address] [place] [address] [place] [employer] [place] [address] * Magnesium (06/02/2018 5:17 AM BROACH SETTER) Magnesium 1.7 1.6 - 2.4 mg/dL TOMY SAHU ([place]) Blood specimen (specimen) 06/02/2018 5:17 AM BROACH SETTER 06/02/2018 5:21 AM BROACH SETTER Narrative [facility]OMY [facility] ([place]) - 06/02/2018 5:36 AM BROACH SETTER us Josette Sloan MD LAB BLOOD ORDERABLES Fin al Result TOMY [facility] ([place]) 1 [facility] [place] [address] * (ABNORMAL) CBC without differential (06/02/2018 5:17 AM BROACH SETTER) WBC 7.8 3.8 - 9.9 K/cumm [facility] ([place]) Hgb 11.6(L) 11.9 - 15.5 g/dL [facility] ([place]) Hct 33.7(L) 35.6 - 45.5 % [facility] ([place]) Plt 309 150 - 400 K/cumm [facility] ([place]) MPV 8.4(L) 9.1 - 12.3 fL [facility] ([place]) RBC 4.13 3.90 - 5.20 M/cumm [facility] ([place]) MCV 81.6 81.3 - 96.4 fL [facility] ([place]) MCH 28.1 27.1 - 33.3 pg [facility] ([place]) MCHC 34.4 32.3 - 35.7 g/dL [facility] ([place]) RDW CV 15.0(H) 11.1 - 14.9 % [facility] ([place]) RDW SD 45.1 35.7 - 48.1 fL [facility] ([place]) NRBC abs 0.00 0.00 - 0.01 K/cumm [facility] ([place]) Blood specimen (specimen) 06/02/2018 5:17 AM BROACH SETTER 06/02/2018 5:21 AM BROACH SETTER Narrative [facility] ([place]) - 06/02/2018 5:23 AM BROACH SETTER Josette Sloan MD LAB BLOOD ORDERABLES Fin al Result TOMY [facility] ([place]) 1 [facility] Department [place] [employer] [place] [address] * (ABNORMAL) Basic metabolic panel (06/02/2018 5:17 AM BROACH SETTER) Sodium 137 135 - 145 mmol/L [facility] ([place]) Potassium, pl 3.6 3.3 - 4.9 mmol/L [facility] ([place]) Chloride 96(L) 97 - 110 mmol/L [facility] ([place]) CO2 26 22 - 32 mmol/L [facility] ([place]) Anion gap 15 2 - 15 mmol/L [facility] ([place]) BUN 5(L) 8 - 25 mg/dL [facility] ([place]) Creatinine 0.34(L) 0.60 - 1.10 mg/dL [facility] ([place]) Glucose 217(H) 70 - 199 mg/dL [facility] ([place]) Comment: Interpretive Data Fasting glucose [...] Calcium 8.5 8.5 - 10.3 mg/dL [facility]OMY [facility] ([place]) Blood specimen (specimen) 06/02/2018 5:17 AM BROACH SETTER 06/02/2018 5:21 AM BROACH SETTER Narrative TOMY SAHU ([place]) - 06/02/2018 5:36 AM BROACH SETTER us Josette Sloan MD LAB BLOOD ORDERABLES Fin al Result TOMY SAHU ([place]) 1 [facility] Department of [facility] [place], [place] [id number] * (ABNORMAL) POCT glucose (06/02/2018 2:19 AM BROACH SETTER) Glucose, POC 212(H) 71 - 98 mg/dL [facility]OMY [facility] ([place]) Blood specimen (specimen) 06/02/2018 2:19 AM BROACH SETTER 06/02/2018 2:19 AM BROACH SETTER Narrative ASHLEYTOSHA LUIS ALBERTO ([place]) - 06/02/2018 2:21 AM BROACH SETTER Eddie Pluido MD LAB POCT ORDERABLES - DEVICE Final Result Performing Organization Address City/[facility]/ZIP Co de Phone Number TOMY SAHU ([place]) 1 [facility] [place] [employer] [place] [address] * (ABNORMAL) POCT glucose (06/01/2018 8:38 PM BROACH SETTER) Glucose, POC 165(H) 71 - 98 mg/dL TOMY SAHU ([place]) Blood specimen (specimen) 06/01/2018 8:38 PM BROACH SETTER 06/01/2018 8:38 PM BROACH SETTER Narrative TOMY SAHU ([place]) - 06/01/2018 8:40 PM BROACH SETTER Eddie Pulido MD LAB POCT ORDERABLES - DEVICE Final Result Performing Organization Address [facility]/ZIP Co de Phone Number TOMY SAHU ([place]) 1 [facility] [place] [employer] [place] [address] * (ABNORMAL) POCT glucose (06/01/2018 4:43 PM BROACH SETTER) Glucose, POC 174(H) 71 - 98 mg/dL TOMY SAHU ([place]) Blood specimen (specimen) 06/01/2018 4:43 PM BROACH SETTER 06/01/2018 4:43 PM BROACH SETTER Narrative TOMY LUIS ALBERTO ([place]) - 06/01/2018 4:47 PM BROACH SETTER Eddie Pulido MD LAB POCT ORDERABLES - DEVICE Final Result TOMY SAHU ([place]) 1 [facility] [place] [employer] [place] [address] * (ABNORMAL) Urinalysis, microscopic only (06/01/2018 3:27 PM BROACH SETTER) WBC, ur 0-5 0 - 5 /HPF [facility] ([place]) RBC, ur >50(A) 0 - 2 /HPF [facility] ([place]) Epithelial cells, squamous, ur 1-5 0 - 5 /HPF [facility] ([place]) Bacteria, ur Negative [facility] ([place]) Hyaline casts, ur 1-5 0 - 10 /LPF [facility] ([place]) Urine 06/01/2018 3:27 PM BROACH SETTER 06/01/2018 3:30 PM BROACH SETTER Narrative [facility] ([place]) - 06/01/2018 3:42 PM BROACH SETTER Eddie Pulido MD LAB URINE ORDERABLES Final Re sult [facility] ([place]) 1 [facility] [place] [address] * (ABNORMAL) Urinalysis reflex to microscopic (06/01/2018 3:27 PM BROACH SETTER) Color, ur Yellow Yellow [facility] ([place]) Clarity, ur Clear Clear [facility] ([place]) Specific gravity, ur 1.008(L) 1.010 - 1.025 [facility] ([place]) pH, urine 7.5 [facility] ([place]) Protein, ur ql Negative Negative [facility] ([place]) Glucose, ur ql 1+(A) Negative [facility] ([place]) Ketones, ur 2+(A) Negative [facility] ([place]) Bilirubin, ur Negative Negative [facility] ([place]) Blood, ur 3+(A) Negative [facility] ([place]) Urobilinogen, ur 0.2 mg/dL [facility] ([place]) Nitrite, ur Negative Negative [facility] ([place]) Leukocyte esterase, ur Negative Negative [facility] ([place]) Urine 06/01/2018 3:27 PM BROACH SETTER 06/01/2018 3:30 PM BROACH SETTER Narrative [facility] ([place]) - 06/01/2018 3:42 PM BROACH SETTER ?? Urine pH is affected by diet, medications, systemic acid-base disturbances, and renal tubular function. ??pH may affect urinary stone formation. ??For example, urine pH below 6.0 may help reduce the tendency for calcium phosphate stones and pH greater than 6.0 may reduce the tendency for uric acid stone formation. Source: [facility] [employer]. Last revised 05-13-2017 Eddie Pulido MD LAB URINE ORDERABLES Final Re sult Performing Organization Address City/[facility] Co de Phone Number TOMY SAHU ([place]) 1 [facility] [place] [address] * (ABNORMAL) POCT glucose (06/01/2018 10:48 AM BROACH SETTER) Glucose, POC 168(H) 71 - 98 mg/dL [facility]TOSHA [facility] ([place]) Blood specimen (specimen) 06/01/2018 10:48 AM BROACH SETTER 06/01/2018 10:48 AM BROACH SETTER Narrative TOMY [facility] ([place]) - 06/01/2018 10:49 AM BROACH SETTER Eddie Pulido MD LAB POCT ORDERABLES - DEVICE Final Result Performing Organization Address [facility] Co de Phone Number TOMY SAHU ([place]) 1 [facility] [place] [employer] [place] [address] * (ABNORMAL) POCT glucose (06/01/2018 7:47 AM BROACH SETTER) Glucose, POC 180(H) 71 - 98 mg/dL TOMY SAHU ([place]) Blood specimen (specimen) 06/01/2018 7:47 AM BROACH SETTER 06/01/2018 7:47 AM BROACH SETTER Narrative TOMY [facility] ([place]) - 06/01/2018 7:56 AM BROACH SETTER Eddie Pulido MD LAB POCT ORDERABLES - DEVICE Final Result Performing Organization Address [facility] Co de Phone Number TOMY SAHU ([place]) 1 [facility] [place] [address] * eGFR (06/01/2018 4:26 AM BROACH SETTER) eGFR 159 mL/min/1.7 3 m2 TOMY SAHU ([place]) Comment: Interpretive Data Reference Interval Normal ?>/= 90 mL/min/1.73m2 Mildly decreased* ? 60 - 89 mL/min/1.73m2 Mildly to moderately decreased ?45 - 59 mL/min/1.73m2 Moderately to severely decreased ??30 - 44 mL/min/1.73m2 Severely decreased ?15 - 29 mL/min/1.73m2 Kidney Failure ?< 15 ??mL/min/1.73m2 *Relative to young adult level If -Faroese multiply value by 1.16. Estimated glomerular filtration [...] was last reviewed 2015. Blood specimen (specimen) 06/01/2018 4:26 AM BROACH SETTER 06/01/2018 4:34 AM BROACH SETTER Narrative TOMY OwensV[place]) - 06/01/2018 5:03 AM BROACH SETTER us Josette Sloan MD LAB BLOOD ORDERABLES Fin al Result TOMY SAHU ([place]) 1 [facility] [place] [address] * Phosphorus (06/01/2018 4:26 AM BROACH SETTER) Phosphorus, pl 3.1 2.3 - 4.5 mg/dL [facility] ([place]) Blood specimen (specimen) 06/01/2018 4:26 AM BROACH SETTER 06/01/2018 4:34 AM BROACH SETTER Narrative [facility] ([place]) - 06/01/2018 5:03 AM BROACH SETTER Josette Sloan MD LAB BLOOD ORDERABLES Fin al Result A[facility]NER [facility] ([place]) 1 [facility] [place] [employer] [place] [address] * Magnesium (06/01/2018 4:26 AM BROACH SETTER) [facility] Magnesium 1.7 1.6 - 2.4 mg/dL [facility] ([place]) Blood specimen (specimen) 06/01/2018 4:26 AM BROACH SETTER 06/01/2018 4:34 AM BROACH SETTER Narrative [facility] ([place]) - 06/01/2018 5:03 AM BROACH SETTER Josette Sloan MD LAB BLOOD ORDERABLES Fin al Result Performing Organization Address [facility] Co de Phone Number TOMY [facility] ([place]) [address] [place] [address] [employer] [place] [employer] [place] [address] * (ABNORMAL) CBC without differential (06/01/2018 4:26 AM BROACH SETTER) [facility] WBC 6.9 3.8 - 9.9 K/cumm [facility] ([place]) Hgb 10.2(L) 11.9 - 15.5 g/dL [facility] ([place]) Hct 29.9(L) 35.6 - 45.5 % [facility] ([place]) Plt 257 150 - 400 K/cumm [facility] ([place]) MPV 8.6(L) 9.1 - 12.3 fL [facility] ([place]) RBC 3.63(L) 3.90 - 5.20 M/cumm [facility] ([place]) MCV 82.4 81.3 - 96.[address] [facility] ([place]) MCH 28.1 27.1 - 33.[address] ([place]) MCHC 34.1 32.3 - 35.7 g/dL [facility] ([place]) RDW CV 15.2(H) 11.1 - 14.9 % A[facility]NER [facility] ([place]) RDW SD 45.9 35.7 - 48.[address] ([place]) NRBC abs 0.00 0.00 - 0.01 K/cumm [facility] ([place]) Blood specimen (specimen) 06/01/2018 4:26 AM BROACH SETTER 06/01/2018 4:34 AM BROACH SETTER Narrative [facility] ([place]) - 06/01/2018 4:38 AM BROACH SETTER us Josette Sloan MD LAB BLOOD ORDERABLES Fin al Result [facility] ([place]) 1 [facility] [place] [address] * (ABNORMAL) Basic metabolic panel (06/01/2018 4:26 AM BROACH SETTER) Sodium 141 135 - 145 mmol/L [facility] ([place]) Potassium, pl 3.2(L) 3.3 - 4.9 mmol/L [facility] ([place]) Chloride 105 97 - 110 mmol/L [facility] ([place]) CO2 31 22 - 32 mmol/L [facility] ([place]) Anion gap 6 2 - 15 mmol/L [facility] ([place]) BUN 5(L) 8 - 25 mg/dL [facility] ([place]) Creatinine 0.33(L) 0.60 - 1.10 mg/dL [facility] ([place]) Glucose 144 70 - 199 mg/dL [facility] ([place]) Comment: Interpretive Data [...] Calcium 8.1(L) 8.5 - 10.3 mg/dL TOMY SAHU ([place]) Blood specimen (specimen) 06/01/2018 4:26 AM BROACH SETTER 06/01/2018 4:34 AM BROACH SETTER Narrative [facility]OMY [facility] ([place]) - 06/01/2018 5:03 AM BROACH SETTER Josette Sloan MD LAB BLOOD ORDERABLES Fin al Result Performing Organization Address City/[facility] Co de Phone Number TOMY SAHU ([place]) 1 [facility] [employer] [place] [place] [address] * (ABNORMAL) POCT glucose (06/01/2018 4:21 AM BROACH SETTER) Glucose, POC 107(H) 71 - 98 mg/dL TOMY SAHU ([place]) Blood specimen (specimen) 06/01/2018 4:21 AM BROACH SETTER 06/01/2018 4:21 AM BROACH SETTER Narrative [facility]OMY [facility] ([place]) - 06/01/2018 4:23 AM BROACH SETTER us Eddie Pulido MD LAB POCT ORDERABLES - DEVICE Final Result Performing Organization Address City/[facility]/ZIP Co de Phone Number TOMY SAHU ([place]) 1 [facility] [place] [address] * (ABNORMAL) POCT glucose (05/31/2018 9:56 PM BROACH SETTER) Glucose, POC 242(H) 71 - 98 mg/dL [facility]OMY [facility] ([place]) Blood specimen (specimen) 05/31/2018 9:56 PM BROACH SETTER 05/31/2018 9:56 PM BROACH SETTER Narrative TOMY [facility] ([place]) - 05/31/2018 10:09 PM BROACH SETTER Eddie Pulido MD LAB POCT ORDERABLES - DEVICE Final Result Performing Organization Address City/[facility]/ZIP Co de Phone Number TOMY [place]) [address] [place] [address] * Clostridium difficile assay Stool (05/31/2018 9:07 PM BROACH SETTER) Report Final Report: Negative Clostridium difficile toxin not detected TOMY SAHU ([place]) Stool 05/31/2018 9:07 PM BROACH SETTER 05/31/2018 10:49 PM BROACH SETTER Narrative TOMY SAHU ([place]) - 05/31/2018 10:50 PM BROACH SETTER us Ayana Prado MD LAB MICROBIOLOGY - GENERAL ORDER RULA Final Result Performing Organization Address [facility] Co de Phone Number TOMY SAHU ([place]) 1 [facility] [place] [employer] [place] [address] * (ABNORMAL) POCT glucose (05/31/2018 6:48 PM BROACH SETTER) Glucose, POC 134(H) 71 - 98 mg/dL TOMY SAHU ([place]) Blood specimen (specimen) 05/31/2018 6:48 PM BROACH SETTER 05/31/2018 6:48 PM BROACH SETTER Narrative TOMY SAHU ([place]) - 05/31/2018 6:49 PM BROACH SETTER Eddie Pulido MD LAB POCT ORDERABLES - DEVICE Final Result TOMY SAHU ([place]) [address] [place] [address] * (ABNORMAL) POCT glucose (05/31/2018 5:09 PM BROACH SETTER) Glucose, POC 134(H) 71 - 98 mg/dL TOMY SAHU ([place]) Blood specimen (specimen) 05/31/2018 5:09 PM BROACH SETTER 05/31/2018 5:09 PM BROACH SETTER Narrative TOMY SAHU ([place]) - 05/31/2018 5:10 PM BROACH SETTER Eddie Pulido MD LAB POCT ORDERABLES - DEVICE Final Result Performing Organization Address [facility] Co de Phone Number TOMY SAHU ([place]) 1 [facility] [place] [employer] [place] [address] * (ABNORMAL) POCT glucose (05/31/2018 3:23 PM BROACH SETTER) Glucose, POC 63(L) 71 - 98 mg/dL TOMY LUIS ALBERTO ([place]) Blood specimen (specimen) 05/31/2018 3:23 PM BROACH SETTER 05/31/2018 3:23 PM BROACH SETTER Narrative TOMY SAHU ([place]) - 05/31/2018 3:24 PM BROACH SETTER Eddie Pulido MD LAB POCT ORDERABLES - DEVICE Final Result Performing Organization Address [facility] Co de Phone Number TOMY SAHU (VASHTI) [address] [facility] [place] [employer] [place] [address] * (ABNORMAL) POCT glucose (05/31/2018 12:10 PM BROACH SETTER) Glucose, POC 181(H) 71 - 98 mg/dL TOMY SAHU (VASHTI) Blood specimen (specimen) 05/31/2018 12:10 PM BROACH SETTER 05/31/2018 12:10 PM BROACH SETTER Narrative TOMY SAHU (VASHTI) - 05/31/2018 12:11 PM BROACH SETTER us Eddie Pulido MD LAB POCT ORDERABLES - DEVICE Final Result TOMY SAHU (VASHTI) [address] [facility] [place] [employer] [place] [address] * TRANSTHORACIC ECHO (TTE) COMPLETE W DOPPLER/CF WO CONTRAST (05/31/2018 11:10 AM BROACH SETTER) Anatomical Region Laterality Modality Ultrasound 05/31/2018 10:5 1 AM BROACH SETTER Narrative 06/01/2018 9:18 AM BROACH SETTER [address] [place] [address] Echocardiogram Report Patient Name: CHEY MENJIVAR : 1995 Study Date: 05/31/2018 10:51:07 Gender: F 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 Indications: Free Text, and Tachycardia. Measurements: 2D/M Mode ?Doppler ? Measurement ?Value ?Normal Range ? Measurement ?Value ?Normal Range ? EF Teich MM ?81.0 ? [ 55.0 - 70.0 ] percent ?MARIA DEL ROSARIO Vmax ? 1.56 ? [ 2.00 - 4.00 ] cm2 ? LVIDd MM ? 3.90 ? [ 3.90 - 5.30 ] cm ? AV Mean PG ? 5 ?[ 2 - 4 ] mmHg ? LVIDs MM ? 2.00 ? [ 2.30 - 3.90 ] cm ? AV VTI ? 2.20 ? cm ? LVPWd MM ? 0.90 ? [ 0.60 - 1.00 ] cm ? LVOT Diam ?1.80 ? [ 1.70 - 2.10 ] cm ? IVSd MM ?0.80 ? [ 0.60 - 0.90 ] cm ? LVOT VTI ? 20.90 ?[ 20.00 - 30.00 ] cm ? LA Dimension MM ?2.10 ? [ 2.70 - 3.80 ] cm ? MV E Peak Denys ?0.76 ? [ 0.60 - 1.30 ] m/s ? AoR Diam MM ?2.50 ? [ 2.60 - 3.70 ] cm ? MV A Peak Denys ?0.76 ? [ 1.00 - 1.20 ] m/s ? MV PHT ? 39 ? [ 20 - 100 ] msec ? MV Decel Time ?7 ?[ 104 - 258 ] msec ? PV Peak Denys ?1.21 ? [ 0.40 - 0.80 ] m/s ? TR Peak PG ? 4 ?mmHg ? Findings: Atrial Septum: Normal atrial septum. Left Ventricle: Normal left ventricular systolic function with no focal wall motion abnormalities. Normal left ventricular size. Normal left ventricular wall thickness. Ejection fraction is visually estimated at 75 %. Left Atrium: The left atrium is normal in size. Right Ventricle: Normal right ventricular size. Normal right ventricular systolic function. Right Atrium: The right atrium is normal in size. Aortic Valve: No evidence of hemodynamically significant aortic stenosis by Doppler. No aortic regurgitation. Mitral Valve: No mitral valve regurgitation is seen. Pulmonic Valve: No evidence of pulmonic regurgitation. Tricuspid Valve: Right Ventricular Systolic Pressure could not be estimated due to inadequate visualization of TR jet. Pericardium: Normal pericardium with no significant pericardial effusion. Aorta: Sinus of Valsalva is normal. Sinotubular junction is normal. IVC: Normal size and normal respiratory collapse consistent with normal right atrial pressure (<5 mmHg). Conclusions: Normal left ventricular systolic function with no focal wall motion abnormalities. Normal left ventricular size. Normal left ventricular wall thickness. Ejection fraction is visually estimated at 75 %. Right Ventricular Systolic Pressure could not be estimated due to inadequate visualization of TR jet. Electronically Signed By: Dr Mann Gonzalez 2018-06-01 09:18:49 BROACH SETTER Procedure Note Mann Gonzalez, DO - 06/01/[address] [place] [address] Echocardiogram Report Patient Name: CHEY MENJIVARPatient ID: [id number] : [id number] Date: 05/31/2018 10:51:07 Gender: FAccession #: [id number] Tech: NPLocation: [id number] Ref.Provider: Rajesh PULIDO(Cm): 155 BSA: Weight(Kg): 56.7 Quality: Adequate Procedures: Echocardiographic Report: Transthoracic echocardiogram with complete 2D, M-Mode, and color Dopplerexamination. Indications: Free Text, and Tachycardia. Measurements: 2D/M Mode Doppler Measurement Value Normal Range MeasurementValue Normal Range EF Teich MM 81.0 [ 55.0 - 70.0 ] percent MARIA DEL ROSARIO Vmax1.56 [ 2.00 - 4.00 ] cm2 LVIDd MM 3.90 [ 3.90 - 5.30 ] cm AV Mean PG 5[ 2 - 4 ] mmHg LVIDs MM 2.00 [ 2.30 - 3.90 ] cm AV VTI2.20 cm LVPWd MM 0.90 [ 0.60 - 1.00 ] cm LVOT Diam1.80 [ 1.70 - 2.10 ] cm IVSd MM 0.80 [ 0.60 - 0.90 ] cm LVOT VTI20.90 [ 20.00 - 30.00 ] cm LA Dimension MM 2.10 [ 2.70 - 3.80 ] cm MV E Peak Vel0.76 [ 0.60 - 1.30 ] m/s AoR Diam MM 2.50 [ 2.60 - 3.70 ] cm MV A Peak Vel0.76 [ 1.00 - 1.20 ] m/s MV PHT 39[ 20 - 100 ] msec MV Decel Time 7[ 104 - 258 ] msec PV Peak Vel1.21 [ 0.40 - 0.80 ] m/s TR Peak PG 4mmHg Findings: Atrial Septum: Normal atrial septum. Left Ventricle: Normal left ventricular systolic function with no focal wall motionabnormalities. Normal left ventricular size. Normal left ventricular wall thickness. Ejectionfraction is visually estimated at 75 %. Left Atrium: The left atrium is normal in size. Right Ventricle: Normal right ventricular size. Normal right ventricular systolicfunction. Right Atrium: The right atrium is normal in size. Aortic Valve: No evidence of hemodynamically significant aortic stenosis by Doppler. Noaortic regurgitation. Mitral Valve: No mitral valve regurgitation is seen. Pulmonic Valve: No evidence of pulmonic regurgitation. Tricuspid Valve: Right Ventricular Systolic Pressure could not be estimated due toinadequate visualization of TR jet. Pericardium: Normal pericardium with no significant pericardial effusion. Aorta: Sinus of Valsalva is normal. Sinotubular junction is normal. IVC: Normal size and normal respiratory collapse consistent with normal rightatrial pressure (<5 mmHg). Conclusions: Normal left ventricular systolic function with no focal wall motionabnormalities. Normal left ventricular size. Normal left ventricular wall thickness. Ejectionfraction is visually estimated at 75 %. Right Ventricular Systolic Pressure could not be estimated due toinadequate visualization of TR jet. Electronically Signed By: Dr Mann Gonzalez 2018-06-01 09:18:49 BROACH SETTER Eddie Pulido MD CV ECHO PROCEDURES Final Resu lt * ECG 12 lead (05/31/2018 10:35 AM BROACH SETTER) 05/31/2018 10:3 5 AM BROACH SETTER Narrative [facility] - 05/31/2018 1:21 PM BROACH SETTER Vent Rate: 129 bpm RR Interval: 462 msec NV Interval: 115 msec QRS Duration: 73 msec QT Interval: 313 msec QTC Interval: 389 msec P-R-T [place]: 72 - 93 - 14 degrees SINUS TACHYCARDIA WITH SHORT NV INTERVAL Bi-atrial enlargement BORDERLINE RIGHT AXIS DEVIATION [QRS AXIS > 90] NONSPECIFIC ST \T\ T-WAVE ABNORMALITY ABNORMAL RHYTHM ECG Electronically Signed By: Cl Patel MD Eddie Pulido MD ECG ORDERABLES Final Result [facility] * (ABNORMAL) POCT glucose (05/31/2018 7:59 AM BROACH SETTER) Glucose, POC 274(H) 71 - 98 mg/dL TOMY SAHU ([place]) Blood specimen (specimen) 05/31/2018 7:59 AM BROACH SETTER 05/31/2018 7:59 AM BROACH SETTER Narrative TOMY SAHU ([place]) - 05/31/2018 8:01 AM BROACH SETTER us Eddie Pulido MD LAB POCT ORDERABLES - DEVICE Final Result TOMY SAHU ([place]) 1 [facility] Department [place] [address] * eGFR (05/31/2018 6:11 AM BROACH SETTER) eGFR 157 mL/min/1.7 3 m2 TOMY SAHU ([place]) Comment: Interpretive Data Reference Interval Normal ?>/= 90 mL/min/1.73m2 Mildly decreased* ? 60 - 89 mL/min/1.73m2 Mildly to moderately decreased ?45 - 59 mL/min/1.73m2 Moderately to severely decreased ??30 - 44 mL/min/1.73m2 Severely decreased ?15 - 29 mL/min/1.73m2 Kidney Failure ?< 15 ??mL/min/1.73m2 *Relative to young adult level If -Faroese multiply value by 1.16. Estimated glomerular filtration [...] was last reviewed 2015. Blood specimen (specimen) 05/31/2018 6:11 AM BROACH SETTER 05/31/2018 6:15 AM BROACH SETTER Narrative TOMY SAHU ([place]) - 05/31/2018 6:41 AM BROACH SETTER us Josette Sloan MD LAB BLOOD ORDERABLES Fin al Result Performing Organization Address [facility] Co de Phone Number [facility] ([place]) 1 [facility] [place] [address] * Phosphorus (05/31/2018 6:11 AM BROACH SETTER) Pathologist [facility] Phosphorus, pl 2.9 2.3 - 4.5 mg/dL [facility] ([place]) Blood specimen (specimen) 05/31/2018 6:11 AM BROACH SETTER 05/31/2018 6:15 AM BROACH SETTER Narrative [facility] ([place]) - 05/31/2018 6:41 AM BROACH SETTER Josette Sloan MD LAB BLOOD ORDERABLES Fin al Result Performing Organization Address [facility] de Phone Number TOMY [facility] ([place]) 1 [facility] [place] [employer] [place] [address] * Magnesium (05/31/2018 6:11 AM BROACH SETTER) Pathologist [facility] Magnesium 1.6 1.6 - 2.4 mg/dL [facility] ([place]) Blood specimen (specimen) 05/31/2018 6:11 AM BROACH SETTER 05/31/2018 6:15 AM BROACH SETTER Narrative [facility] ([place]) - 05/31/2018 6:41 AM BROACH SETTER Josette Sloan MD LAB BLOOD ORDERABLES Fin al Result Performing Organization Address [facility] Co de Phone Number [facility]OM[facility] ([place]) 1 [facility] [place] [employer] [place] [address] * (ABNORMAL) CBC without differential (05/31/2018 6:11 AM BROACH SETTER) Pathologist [facility] WBC 6.4 3.8 - 9.9 K/cumm [facility] ([place]) Hgb 11.7(L) 11.9 - 15.5 g/dL [facility] ([place]) Hct 34.1(L) 35.6 - 45.5 % [facility] ([place]) Plt 308 150 - 400 K/cumm [facility] ([place]) MPV 8.4(L) 9.1 - 12.3 fL [facility] ([place]) RBC 4.22 3.90 - 5.20 M/cumm [facility] ([place]) MCV 80.8(L) 81.3 - 96.4 fL [facility] ([place]) MCH 27.7 27.1 - 33.3 pg [facility] ([place]) MCHC 34.3 32.3 - 35.7 g/dL [facility] ([place]) RDW CV 15.3(H) 11.1 - 14.9 % [facility] ([place]) RDW SD 45.1 35.7 - 48.1 fL [facility] ([place]) NRBC abs 0.00 0.00 - 0.01 K/cumm [facility] ([place]) Blood specimen (specimen) 05/31/2018 6:11 AM BROACH SETTER 05/31/2018 6:15 AM BROACH SETTER Narrative [facility] ([place]) - 05/31/2018 6:17 AM BROACH SETTER us Josette Sloan MD LAB BLOOD ORDERABLES Fin al Result [facility] ([place]) 1 [facility] Department [place] [address] * (ABNORMAL) Basic metabolic panel (05/31/2018 6:11 AM BROACH SETTER) Sodium 139 135 - 145 mmol/L CERNER [...] - 1.10 mg/dL [facility] ([place]) Glucose 247(H) 70 - 199 mg/dL [facility] ([place]) [...] Calcium 8.6 8.5 - 10.3 mg/dL TOMY LUIS ALBERTO ([place]) Blood specimen (specimen) 05/31/2018 6:11 AM BROACH SETTER 05/31/2018 6:15 AM BROACH SETTER Narrative TOMY SAHU ([place]) - 05/31/2018 6:41 AM BROACH SETTER Josette Sloan MD LAB BLOOD ORDERABLES Fin al Result Performing Organization Address [facility] Co de Phone Number TOMY SAHU ([place]) 1 [facility] [place] [address] * (ABNORMAL) POCT glucose (05/30/2018 8:42 PM BROACH SETTER) Glucose, POC 146(H) 71 - 98 mg/dL TOMY SAHU ([place]) Blood specimen (specimen) 05/30/2018 8:42 PM BROACH SETTER 05/30/2018 8:42 PM BROACH SETTER Narrative TOMY SAHU ([place]) - 05/30/2018 8:48 PM BROACH SETTER Josette Sloan MD LAB POCT ORDERABLES - DE VICE Final Result Performing Organization Address [facility]/ZIP Co de Phone Number TOMY SAHU ([place]) 1 [facility] [place] [address] * (ABNORMAL) POCT glucose (05/30/2018 5:36 PM BROACH SETTER) Glucose, POC 153(H) 71 - 98 mg/dL TOMY SAHU ([place]) Blood specimen (specimen) 05/30/2018 5:36 PM BROACH SETTER 05/30/2018 5:36 PM BROACH SETTER Narrative TOMY LUQUE) - 05/30/2018 5:37 PM BROACH SETTER Josette Sloan MD LAB POCT ORDERABLES - DE VICE Final Result TOMY LUQUE) 1 [facility] Department [place] [address] * Blood culture Blood (05/30/2018 4:12 PM BROACH SETTER) Report Final Report: No growth TOMY LUQUE) Comment:Testing performed by : [facility], 1 [facility] [place] [place] [address] Blood specimen (specimen) 05/30/2018 4:12 PM BROACH SETTER 05/30/2018 7:27 PM BROACH SETTER Narrative TOMY LUQUE) - 06/05/2018 7:00 AM BROACH SETTER From a different site than #1. 1. Blood cultures are incubated for 5 [...] organism identification may be performed using the [employer] Gram-Positive Blood Culture Assay. This assay detects microbial DNA in positive blood culture broth via hybridization of target DNA to capture oligonucleotides on a microarray. This assay has been cleared by the [place] Food and Drug Administration and its performance characteristics have been verified by the [facility] Microbiology Laboratory. 5. For questions about this culture, contact the Microbiology Laboratory at [phone]. Interpretive data was last revised on 2018. Josette Sloan MD LAB MICROBIOLOGY - GENER AL ORDERABLES Final Result TOMY SAHU ([place]) 1 [place] [address] * (ABNORMAL) POCT glucose (05/30/2018 4:03 PM BROACH SETTER) Glucose, POC 128(H) 71 - 98 mg/dL TOMY SAHU ([place]) Blood specimen (specimen) 05/30/2018 4:03 PM BROACH SETTER 05/30/2018 4:03 PM BROACH SETTER Narrative TOMY SAHU ([place]) - 05/30/2018 4:09 PM BROACH SETTER Josette Sloan MD LAB POCT ORDERABLES - DE VICE Final Result Performing Organization Address City/[facility]/ZIP Co de Phone Number TOMY SAHU ([place]) 1 [place] [address] * Blood culture Blood (05/30/2018 3:21 PM BROACH SETTER) Report Final Report: No growth TOMY SAHU ([place]) Comment:Testing performed by : [facility], 1 [facility] [place]., [address] Blood specimen (specimen) 05/30/2018 3:21 PM BROACH SETTER 05/30/2018 7:27 PM BROACH SETTER Narrative TOMY SAHU ([place]) - 06/05/2018 7:00 AM BROACH SETTER 1. Blood cultures are incubated for 5 [...] organism identification may be performed using the [employer] Gram-Positive Blood Culture Assay. This assay detects microbial DNA in positive blood culture broth via hybridization of target DNA to capture oligonucleotides on a microarray. This assay has been cleared by the [place] Food and Drug Administration and its performance characteristics have been verified by the [facility] Microbiology Laboratory. 5. For questions about this culture, contact the Microbiology Laboratory at [phone]. Interpretive data was last revised on 2018. Josette Sloan MD LAB MICROBIOLOGY - GENER AL ORDERABLES Final Result Performing Organization Address City/[facility]/ZIP Co de Phone Number TOMY SAHU ([place]) 1 [facility] [place] [employer] [place] [address] * (ABNORMAL) POCT glucose (05/30/2018 2:26 PM BROACH SETTER) [facility] Signature Glucose, POC 103(H) 71 - 98 mg/dL TOMY SAHU ([place]) Blood specimen (specimen) 05/30/2018 2:26 PM BROACH SETTER 05/30/2018 2:26 PM BROACH SETTER Narrative ASHLEYTOSHA SAHU ([place]) - 05/30/2018 2:28 PM BROACH SETTER Josette Sloan MD LAB POCT ORDERABLES - DE VICE Final Result TOMY SAHU ([place]) 1 [facility] [place] [employer] [place] [address] * (ABNORMAL) POCT glucose (05/30/2018 1:26 PM BROACH SETTER) Glucose, POC 112(H) 71 - 98 mg/dL [facility] ([place]) Blood specimen (specimen) 05/30/2018 1:26 PM BROACH SETTER 05/30/2018 1:26 PM BROACH SETTER Narrative [facility] ([place]) - 05/30/2018 1:28 PM BROACH SETTER Josette Sloan MD LAB POCT ORDERABLES - DE VICE Final Result TOMY SAHU ([place]) 1 [facility] [place] [address] * Potassium (05/30/2018 1:02 PM BROACH SETTER) [facility] Potassium, pl 3.4 3.3 - 4.9 mmol/L [facility] ([place]) Blood specimen (specimen) 05/30/2018 1:02 PM BROACH SETTER 05/30/2018 1:06 PM BROACH SETTER Narrative [facility] ([place]) - 05/30/2018 1:23 PM BROACH SETTER Josette Sloan MD LAB BLOOD ORDERABLES Fin al Result Performing Organization Address [facility]/ZIP Co de Phone Number TOMY SAHU ([place]) 1 [facility] [place] [employer] [place] [address] * (ABNORMAL) POCT glucose (05/30/2018 12:03 PM BROACH SETTER) Glucose, POC 116(H) 71 - 98 mg/dL [facility] ([place]) Blood specimen (specimen) 05/30/2018 12:03 PM BROACH SETTER 05/30/2018 12:03 PM BROACH SETTER Narrative [facility] ([place]) - 05/30/2018 12:05 PM BROACH SETTER Josette Sloan MD LAB POCT ORDERABLES - DE VICE Final Result TOMY LUQUE) 1 [facility] [place] [address] * (ABNORMAL) POCT glucose (05/30/2018 10:38 AM BROACH SETTER) Glucose, POC 210(H) 71 - 98 mg/dL TOMY SAHU ([place]) Blood specimen (specimen) 05/30/2018 10:38 AM BROACH SETTER 05/30/2018 10:38 AM BROACH SETTER Narrative TOMY SAHU ([place]) - 05/30/2018 10:47 AM BROACH SETTER us Josette Sloan MD LAB POCT ORDERABLES - DE VICE Final Result TOMY SAHU ([place]) 1 [facility] [place] [employer] [place] [address] * (ABNORMAL) POCT glucose (05/30/2018 9:35 AM BROACH SETTER) Glucose, POC 183(H) 71 - 98 mg/dL TOMY SAHU ([place]) Blood specimen (specimen) 05/30/2018 9:35 AM BROACH SETTER 05/30/2018 9:35 AM BROACH SETTER Narrative TOMY SAHU ([place]) - 05/30/2018 9:44 AM BROACH SETTER us Josette Sloan MD LAB POCT ORDERABLES - DE VICE Final Result TOMY SAHU ([place]) 1 [facility] [place] [place] [address] * (ABNORMAL) POCT glucose (05/30/2018 8:37 AM BROACH SETTER) Glucose, POC 120(H) 71 - 98 mg/dL TOMY SAHU ([place]) Blood specimen (specimen) 05/30/2018 8:37 AM BROACH SETTER 05/30/2018 8:37 AM BROACH SETTER Narrative TOMY SAHU ([place]) - 05/30/2018 8:47 AM BROACH SETTER us Josette Sloan MD LAB POCT ORDERABLES - DE VICE Final Result Performing Organization Address City/State/[facility] Co de Phone Number TOMY SAHU ([place]) 1 [facility] Department [place] [address] * eGFR (05/30/2018 7:46 AM BROACH SETTER) eGFR 159 mL/min/1.7 3 m2 TOMY SAHU ([place]) Comment: Interpretive Data Reference Interval Normal ?>/= 90 mL/min/1.73m2 Mildly decreased* ? 60 - 89 mL/min/1.73m2 Mildly to moderately decreased ?45 - 59 mL/min/1.73m2 Moderately to severely decreased ??30 - 44 mL/min/1.73m2 Severely decreased ?15 - 29 mL/min/1.73m2 Kidney Failure ?< 15 ??mL/min/1.73m2 *Relative to young adult level If -Faroese multiply value by 1.16. Estimated glomerular filtration [...] was last reviewed 2015. Blood specimen (specimen) 05/30/2018 7:46 AM BROACH SETTER 05/30/2018 7:52 AM BROACH SETTER Narrative TOMY LUQUE) - 05/30/2018 8:28 AM BROACH SETTER us Josette Sloan MD LAB BLOOD ORDERABLES Fin al Result [facility] ([place]) 1 [facility] Department [place] [address] * (ABNORMAL) CBC without differential (05/30/2018 7:46 AM BROACH SETTER) Pathologist [facility] WBC 6.0 3.8 - 9.9 K/cumm [facility] ([place]) Hgb 10.7(L) 11.9 - 15.5 g/dL [facility] ([place]) Hct 32.1(L) 35.6 - 45.5 % [facility] ([place]) Plt 335 150 - 400 K/cumm [facility] ([place]) MPV 8.7(L) 9.1 - 12.3 fL [facility] ([place]) RBC 3.89(L) 3.90 - 5.20 M/cumm [facility] ([place]) MCV 82.5 81.3 - 96.4 fL [facility] ([place]) MCH 27.5 27.1 - 33.3 pg [facility] ([place]) MCHC 33.3 32.3 - 35.7 g/dL [facility] ([place]) RDW CV 15.6(H) 11.1 - 14.9 % [facility] ([place]) RDW SD 47.1 35.7 - 48.1 fL [facility] ([place]) NRBC abs 0.00 0.00 - 0.01 K/cumm [facility] ([place]) Blood specimen (specimen) 05/30/2018 7:46 AM BROACH SETTER 05/30/2018 7:52 AM BROACH SETTER Narrative [facility] ([place]) - 05/30/2018 8:22 AM BROACH SETTER us Josette Sloan MD LAB BLOOD ORDERABLES Fin al Result TOMY SAHU ([place]) 1 [facility] Department [place] [address] * (ABNORMAL) Phosphorus (05/30/2018 7:46 AM BROACH SETTER) Pathologist [facility] Phosphorus, pl 1.9(L) 2.3 - 4.5 mg/dL [facility] ([place]) Blood specimen (specimen) 05/30/2018 7:46 AM BROACH SETTER 05/30/2018 7:52 AM BROACH SETTER Narrative [facility] ([place]) - 05/30/2018 8:28 AM BROACH SETTER Josette Sloan MD LAB BLOOD ORDERABLES Fin al Result TOMY SAHU ([place]) 1 [facility] [place] [address] * (ABNORMAL) Magnesium (05/30/2018 7:46 AM BROACH SETTER) [facility] Magnesium 1.5(L) 1.6 - 2.4 mg/dL [facility] ([place]) Blood specimen (specimen) 05/30/2018 7:46 AM BROACH SETTER 05/30/2018 7:52 AM BROACH SETTER Narrative [facility] ([place]) - 05/30/2018 8:28 AM BROACH SETTER Josette Sloan MD LAB BLOOD ORDERABLES Fin al Result TOMY SAHU ([place]) [address] [place] [address] [place] [address] * (ABNORMAL) Basic metabolic panel (05/30/2018 7:46 AM BROACH SETTER) Sodium 140 135 - 145 mmol/L [facility] ([place]) Potassium, pl 3.6 3.3 - 4.9 mmol/L [facility] ([place]) Chloride 108 97 - 110 mmol/L [facility] ([place]) CO2 21(L) 22 - 32 mmol/L [facility] ([place]) Anion gap 11 2 - 15 mmol/L [facility] ([place]) BUN 4(L) 8 - 25 mg/dL [facility] ([place]) Creatinine 0.33(L) 0.60 - 1.10 mg/dL [facility] ([place]) Glucose 134 70 - 199 mg/dL [facility] ([place]) Comment: Interpretive Data [...] Calcium 8.2(L) 8.5 - 10.3 mg/dL [facility]Y [facility] ([place]) Blood specimen (specimen) 05/30/2018 7:46 AM BROACH SETTER 05/30/2018 7:52 AM BROACH SETTER Narrative ASHLEYTOSHA SAHU ([place]) - 05/30/2018 8:28 AM BROACH SETTER Josette Sloan MD LAB BLOOD ORDERABLES Fin al Result Performing Organization Address [facility]/ZIP Co de Phone Number TOMY SAHU ([place]) 1 [facility] [place] [employer] [place] [address] * (ABNORMAL) POCT glucose (05/30/2018 7:39 AM BROACH SETTER) Glucose, POC 120(H) 71 - 98 mg/dL TOMY SAHU ([place]) Blood specimen (specimen) 05/30/2018 7:39 AM BROACH SETTER 05/30/2018 7:39 AM BROACH SETTER Narrative [facility] ([place]) - 05/30/2018 7:56 AM BROACH SETTER Josette Sloan MD LAB POCT ORDERABLES - DE VICE Final Result TOMY SAHU ([place]) 1 [facility] [place] [employer] [place] [address] * POCT glucose (05/30/2018 6:31 AM BROACH SETTER) Glucose, POC 89 71 - 98 mg/dL [facility] ([place]) Blood specimen (specimen) 05/30/2018 6:31 AM BROACH SETTER 05/30/2018 6:31 AM BROACH SETTER Narrative [facility] ([place]) - 05/30/2018 6:33 AM BROACH SETTER us Josette Sloan MD LAB POCT ORDERABLES - DE VICE Final Result TOMY SAHU ([place]) 1 [facility] [place] [employer] [place] [address] * POCT glucose (05/30/2018 5:28 AM BROACH SETTER) Glucose, POC 91 71 - 98 mg/dL [facility] ([place]) Blood specimen (specimen) 05/30/2018 5:28 AM BROACH SETTER 05/30/2018 5:28 AM BROACH SETTER Narrative [facility] ([place]) - 05/30/2018 5:30 AM BROACH SETTER us Josette Sloan MD LAB POCT ORDERABLES - DE VICE Final Result Performing Organization Address [facility] Co de Phone Number TOMY SAHU ([place]) [address] [place] [address] [employer] [address] * (ABNORMAL) POCT glucose (05/30/2018 4:06 AM BROACH SETTER) Glucose, POC 119(H) 71 - 98 mg/dL [facility] ([place]) Blood specimen (specimen) 05/30/2018 4:06 AM BROACH SETTER 05/30/2018 4:06 AM BROACH SETTER Narrative [facility] ([place]) - 05/30/2018 4:09 AM BROACH SETTER us Josette Sloan MD LAB POCT ORDERABLES - DE VICE Final Result TOMY SAHU ([place]) 1 [facility] [place] [place] [address] * (ABNORMAL) POCT glucose (05/30/2018 3:06 AM BROACH SETTER) Glucose, POC 159(H) 71 - 98 mg/dL TOMY SAHU ([place]) Blood specimen (specimen) 05/30/2018 3:06 AM BROACH SETTER 05/30/2018 3:06 AM BROACH SETTER Narrative TOMY SAHU ([place]) - 05/30/2018 3:17 AM BROACH SETTER us Josette Sloan MD LAB POCT ORDERABLES - DE VICE Final Result TOMY SAHU ([place]) 1 [facility] [place] [place] [address] * (ABNORMAL) POCT glucose (05/30/2018 2:08 AM BROACH SETTER) Glucose, POC 158(H) 71 - 98 mg/dL TOMY SAHU ([place]) Blood specimen (specimen) 05/30/2018 2:08 AM BROACH SETTER 05/30/2018 2:08 AM BROACH SETTER Narrative TOMY SAHU ([place]) - 05/30/2018 2:15 AM BROACH SETTER us Joestte Sloan MD LAB POCT ORDERABLES - DE VICE Final Result TOMY SAHU ([place]) 1 [facility] [place] [place] [address] * (ABNORMAL) POCT glucose (05/30/2018 1:05 AM BROACH SETTER) Glucose, POC 134(H) 71 - 98 mg/dL TOMY SAHU ([place]) Blood specimen (specimen) 05/30/2018 1:05 AM BROACH SETTER 05/30/2018 1:05 AM BROACH SETTER Narrative TOMY SAHU ([place]) - 05/30/2018 1:07 AM BROACH SETTER us Josette Sloan MD LAB POCT ORDERABLES - DE VICE Final Result Performing Organization Address [facility]/ZIP Co de Phone Number TOMY LUQUE) [address] [place] [address] Department [place] [address] * eGFR (05/30/2018 12:13 AM BROACH SETTER) eGFR 153 mL/min/1.7 3 m2 TOMY SAHU ([place]) Comment: Interpretive Data Reference Interval Normal ?>/= 90 mL/min/1.73m2 Mildly decreased* ? 60 - 89 mL/min/1.73m2 Mildly to moderately decreased ?45 - 59 mL/min/1.73m2 Moderately to severely decreased ??30 - 44 mL/min/1.73m2 Severely decreased ?15 - 29 mL/min/1.73m2 Kidney Failure ?< 15 ??mL/min/1.73m2 *Relative to young adult level If -Faroese multiply value by 1.16. Estimated glomerular filtration [...] was last reviewed 2015. Blood specimen (specimen) 05/30/2018 12:13 AM BROACH SETTER 05/30/2018 12:17 AM BROACH SETTER Narrative TOMY LUQUE) - 05/30/2018 1:34 AM BROACH SETTER Josette Sloan MD LAB BLOOD ORDERABLES Fin al Result Performing Organization Address [facility]/ZIP Co de Phone Number TOMY LUQUE) 1 [facility] [place] [address] * Phosphorus (05/30/2018 12:13 AM BROACH SETTER) Pathologist [facility] Phosphorus, pl 2.3 2.3 - 4.5 mg/dL [facility] ([place]) Blood specimen (specimen) 05/30/2018 12:13 AM BROACH SETTER 05/30/2018 12:17 AM BROACH SETTER Narrative [facility]Y [facility] ([place]) - 05/30/2018 1:34 AM BROACH SETTER Josette Sloan MD LAB BLOOD ORDERABLES Fin al Result TOMY SAHU ([place]) 1 [facility] [place] [address] * Magnesium (05/30/2018 12:13 AM BROACH SETTER) Pathologist [facility] Magnesium 1.6 1.6 - 2.4 mg/dL TOMY [facility] ([place]) Blood specimen (specimen) 05/30/2018 12:13 AM BROACH SETTER 05/30/2018 12:17 AM BROACH SETTER Narrative TOMY [facility] ([place]) - 05/30/2018 1:34 AM BROACH SETTER Josette Sloan MD LAB BLOOD ORDERABLES Fin al Result TOMY SAHU ([place]) 1 [facility] [place] [employer] [place] [address] * (ABNORMAL) Basic metabolic panel (05/30/2018 12:13 AM BROACH SETTER) Sodium 137 135 - 145 mmol/L [facility] ([place]) Potassium, pl 2.9(C) 3.3 - 4.9 mmol/L [facility] ([place]) Comment:Critical Result call ed to and read back by joselin parra(icu), DATE: 2018-05-30 01:34:19 BY: neena ledesma Chloride 104 97 - 110 mmol/L [facility] ([place]) CO2 22 22 - 32 mmol/L [facility] ([place]) Anion gap 12 2 - 15 mmol/L [facility] ([place]) BUN 6(L) 8 - 25 mg/dL [facility] ([place]) Creatinine 0.37(L) 0.60 - 1.10 mg/dL [facility] ([place]) Glucose 137 70 - 199 mg/dL [facility] ([place]) [...] mg/dL [facility] ([place]) Blood specimen (specimen) 05/30/2018 12:13 AM BROACH SETTER 05/30/2018 12:17 AM BROACH SETTER Narrative TOMY [facility] ([place]) - 05/30/2018 1:34 AM BROACH SETTER Josette Sloan MD LAB BLOOD ORDERABLES Fin al Result TOMY SAHU ([place]) 1 [facility] [place] [address] * (ABNORMAL) POCT glucose (05/30/2018 12:10 AM BROACH SETTER) Glucose, POC 129(H) 71 - 98 mg/dL [facility] ([place]) Blood specimen (specimen) 05/30/2018 12:10 AM BROACH SETTER 05/30/2018 12:10 AM BROACH SETTER Narrative [facility] ([place]) - 05/30/2018 12:16 AM BROACH SETTER Josette Sloan MD LAB POCT ORDERABLES - DE VICE Final Result TOMY SAHU ([place]) 1 [facility] [place] [employer] [place] [address] * (ABNORMAL) POCT glucose (05/29/2018 11:03 PM BROACH SETTER) Glucose, POC 132(H) 71 - 98 mg/dL TOMY SAHU ([place]) Blood specimen (specimen) 05/29/2018 11:03 PM BROACH SETTER 05/29/2018 11:03 PM BROACH SETTER Narrative TOMY SAHU ([place]) - 05/29/2018 11:05 PM BROACH SETTER us Josette Sloan MD LAB POCT ORDERABLES - DE VICE Final Result TOMY SAHU ([place]) [address] [place] [address] [employer] [address] * (ABNORMAL) POCT glucose (05/29/2018 10:06 PM BROACH SETTER) Glucose, POC 111(H) 71 - 98 mg/dL TOMY SAHU ([place]) Blood specimen (specimen) 05/29/2018 10:06 PM BROACH SETTER 05/29/2018 10:06 PM BROACH SETTER Narrative TOMY SAHU ([place]) - 05/29/2018 10:09 PM BROACH SETTER Jostete Sloan MD LAB POCT ORDERABLES - DE VICE Final Result TOMY SAHU ([place]) 1 [facility] [place] [employer] [place] [address] * POCT glucose (05/29/2018 8:56 PM BROACH SETTER) Glucose, POC 96 71 - 98 mg/dL TOMY SAHU ([place]) Blood specimen (specimen) 05/29/2018 8:56 PM BROACH SETTER 05/29/2018 8:56 PM BROACH SETTER Narrative TOMY SAHU ([place]) - 05/29/2018 8:58 PM BROACH SETTER us Josette Sloan MD LAB POCT ORDERABLES - DE VICE Final Result TOMY SAHU ([place]) 1 [facility] [place] [address] * eGFR (05/29/2018 8:18 PM BROACH SETTER) eGFR 149 mL/min/1.7 3 m2 TOMY SAHU ([place]) Comment: Interpretive Data Reference Interval Normal ?>/= 90 mL/min/1.73m2 Mildly decreased* ? 60 - 89 mL/min/1.73m2 Mildly to moderately decreased ?45 - 59 mL/min/1.73m2 Moderately to severely decreased ??30 - 44 mL/min/1.73m2 Severely decreased ?15 - 29 mL/min/1.73m2 Kidney Failure ?< 15 ??mL/min/1.73m2 *Relative to young adult level If -Faroese multiply value by 1.16. Estimated glomerular filtration [...] was last reviewed 2015. Blood specimen (specimen) 05/29/2018 8:18 PM BROACH SETTER 05/29/2018 8:21 PM BROACH SETTER Narrative TOMY SAHU ([place]) - 05/29/2018 8:38 PM BROACH SETTER Josette Sloan MD LAB BLOOD ORDERABLES Fin al Result TOMY SAHU ([place]) 1 [facility] [place] [address] * (ABNORMAL) Phosphorus (05/29/2018 8:18 PM BROACH SETTER) Phosphorus, pl 2.2(L) 2.3 - 4.5 mg/dL TOMY [facility] ([place]) Blood specimen (specimen) 05/29/2018 8:18 PM BROACH SETTER 05/29/2018 8:21 PM BROACH SETTER Narrative TOMY SAHU ([place]) - 05/29/2018 8:38 PM BROACH SETTER Josette Sloan MD LAB BLOOD ORDERABLES Fin al Result Performing Organization Address City/[facility]/ZIP Co de Phone Number TOMY SAHU ([place]) 1 [facility] [place] [address] * Magnesium (05/29/2018 8:18 PM BROACH SETTER) Magnesium 1.6 1.6 - 2.4 mg/dL TOMY SAHU ([place]) Blood specimen (specimen) 05/29/2018 8:18 PM BROACH SETTER 05/29/2018 8:21 PM BROACH SETTER Narrative TOMY SAHU ([place]) - 05/29/2018 8:38 PM BROACH SETTER Josette Sloan MD LAB BLOOD ORDERABLES Fin al Result TOMY SAHU ([place]) 1 [facility] [place] [employer] [place] [address] * (ABNORMAL) Basic metabolic panel (05/29/2018 8:18 PM BROACH SETTER) Sodium 136 135 - 145 mmol/L [facility] ([place]) Potassium, pl 3.3 3.3 - 4.9 mmol/L [facility] ([place]) Chloride 103 97 - 110 mmol/L [facility] ([place]) CO2 19(L) 22 - 32 mmol/L [facility] ([place]) Anion gap 13 2 - 15 mmol/L [facility] ([place]) BUN 7(L) 8 - 25 mg/dL [facility] ([place]) Creatinine 0.40(L) 0.60 - 1.10 mg/dL [facility] ([place]) Glucose 112 70 - 199 mg/dL [facility] ([place]) [...] 2017. Calcium 8.3(L) 8.5 - 10.3 mg/dL ASHLEYNER [facility] ([place]) Blood specimen (specimen) 05/29/2018 8:18 PM BROACH SETTER 05/29/2018 8:21 PM BROACH SETTER Narrative TOMY [facility] ([place]) - 05/29/2018 8:38 PM BROACH SETTER us Josette Sloan MD LAB BLOOD ORDERABLES Fin al Result TOMY SAHU ([place]) 1 [facility] [place] [address] * POCT glucose (05/29/2018 7:51 PM BROACH SETTER) [facility] Signature Glucose, POC 83 71 - 98 mg/dL TOMY [facility] ([place]) Blood specimen (specimen) 05/29/2018 7:51 PM BROACH SETTER 05/29/2018 7:51 PM BROACH SETTER Narrative TOMY [facility] ([place]) - 05/29/2018 7:56 PM BROACH SETTER us Josette Sloan MD LAB POCT ORDERABLES - DE VICE Final Result TOMY SAHU ([place]) 1 [facility] [place] [employer] [place] [address] * POCT glucose (05/29/2018 6:34 PM BROACH SETTER) Glucose, POC 77 71 - 98 mg/dL TOMY SAHU ([place]) Blood specimen (specimen) 05/29/2018 6:34 PM BROACH SETTER 05/29/2018 6:34 PM BROACH SETTER Narrative TOMY SAHU ([place]) - 05/29/2018 6:35 PM BROACH SETTER Josette Sloan MD LAB POCT ORDERABLES - DE VICE Final Result Performing Organization Address [facility]/ZIP Co de Phone Number TOMY SAHU ([place]) [address] [place] [address] [employer] [address] * POCT glucose (05/29/2018 5:19 PM BROACH SETTER) Glucose, POC 82 71 - 98 mg/dL TOMY SAHU ([place]) Blood specimen (specimen) 05/29/2018 5:19 PM BROACH SETTER 05/29/2018 5:19 PM BROACH SETTER Narrative TOMY SAHU ([place]) - 05/29/2018 5:29 PM BROACH SETTER Josette Sloan MD LAB POCT ORDERABLES - DE VICE Final Result TOMY SAHU ([place]) 1 [facility] [place] [employer] [place] [address] * CT Chest PE W Contrast (05/29/2018 5:06 PM BROACH SETTER) Anatomical Region Laterality Modality Body N/A Computed Tomogra phy 05/29/2018 5:23 PM BROACH SETTER Impressions 05/29/2018 5:30 PM BROACH SETTER 1. Right-sided PICC extending to superior vena cava. 2. ??Otherwise normal CT chest PE with contrast. Electronically signed by: Chico Hutchins Jr., M.D. Narrative 05/29/2018 5:[address] CHEST PE W CONTRAST HISTORY: PE suspected. ??Low pretest probability. ??Sinus tachycardia. D-dimer not measured. White blood cell count 14,900. COMPARISON: Portable chest x-ray on 02/08/2017 at [facility]. CONTRAST: 125 mL Optiray 350 IV. TECHNIQUE: Spiral axial scans from above lung apices to below diaphragm. ??Coronal and sagittal reformatted images. FINDINGS: No pulmonary arterial filling defects are identified. ??No thoracic aortic aneurysm or dissection is seen. ??No coronary or thoracic aortic arteriosclerotic calcification is seen. Heart size is normal without pericardial thickening or effusion. ??No infiltrate, mass or pleural effusion is demonstrated. ??No enlarged hilar or mediastinal lymph nodes are seen. ??Bony structures are also unremarkable . ??Right-sided PICC is in place with tip in superior vena cava Procedure Note Chico Hutchins Jr., MD - 05/29/2018 CT CHEST PE W CONTRAST HISTORY: PE suspected. Low pretest probability. Sinus tachycardia. D-dimer not measured. White blood cell count 14,900. COMPARISON: Portable chest x-ray on 02/08/2017 at [facility]. CONTRAST: 125 mL Optiray 350 IV. TECHNIQUE: Spiral axial scans from above lung apices to below diaphragm. Coronal and sagittal reformatted images. FINDINGS: No pulmonary arterial filling defects are identified. No thoracic aortic aneurysm or dissection is seen. No coronary or thoracic aortic arteriosclerotic calcification is seen. Heart size is normal without pericardial thickening or effusion. No infiltrate, mass or pleural effusion is demonstrated. No enlarged hilar or mediastinal lymph nodes are seen. Bony structures are also unremarkable . Right-sided PICC is in place with tip in superior vena cava IMPRESSION: 1. Right-sided PICC extending to superior vena cava. 2. Otherwise normal CT chest PE with contrast. Electronically signed by: Chico Hutchins Jr., M.D. Josette Sloan MD IM CT PROCEDURES Final Result * CT Abdomen Pelvis W Contrast (05/29/2018 5:06 PM BROACH SETTER) Anatomical Region Laterality Modality Body N/A Computed Tomogra phy 05/29/2018 5:30 PM BROACH SETTER Impressions 05/29/2018 5:38 PM BROACH SETTER 1. ??Mild fatty liver. 2. ??Parapelvic cyst upper pole right kidney. 3. ??Scattered fluid collections in small bowel and colon. Gastroenteritis/hypersecretory state? 4. ??Very full urinary bladder extending up to L5 level. 5. ??No other significant abdominal or pelvic findings. Electronically signed by: Chico Hutchins Jr., M.D. Narrative 05/29/2018 5:[address] ABDOMEN PELVIS W CONTRAST HISTORY: Vomiting for 4 days. ??White blood cell count 14,900. COMPARISON: None TECHNIQUE: 125 mL Optiray 350 IV, same given for CT chest PE performed at same time. ??Spiral axial scans from lung bases to ischial tuberosities. ??Coronal and sagittal reformatted images. FINDINGS: Partially visualized lung bases are clear. There is mild diffuse hypodensity of liver without focal abnormality. Gallbladder is normal. ??Bile ducts are not dilated. Pancreas, spleen and adrenal glands appear normal. A 2.7 cm parapelvic cyst is present at the upper pole of the right kidney. ??Kidneys and ureters otherwise appear normal. ??Urinary bladder is very full with dome at L5 level. Uterus and ovaries appear normal Appendix is normal. Scattered collections of fluid in small bowel and colon with some air-fluid levels. ??No bowel wall thickening is seen. ??No formed stool is identified. ??Stomach is also partially filled with fluid. Abdominal aorta and inferior vena cava appear normal. No lymphadenopathy or ascites is seen. ??No other abnormal abdominal mass or fluid collection is seen. Abdominal and pelvic wall structures appear intact. Visualized bony structures are unremarkable. Procedure Note Chico Hutchins Jr., MD - 05/29/2018 CT ABDOMEN PELVIS W CONTRAST HISTORY: Vomiting for 4 days. White blood cell count 14,900. COMPARISON: None TECHNIQUE: 125 mL Optiray 350 IV, same given for CT chest PE performed at same time. Spiral axial scans from lung bases to ischial tuberosities. Coronal and sagittal reformatted images. FINDINGS: Partially visualized lung bases are clear. There is mild diffuse hypodensity of liver without focal abnormality. Gallbladder is normal. Bile ducts are not dilated. Pancreas, spleen and adrenal glands appear normal. A 2.7 cm parapelvic cyst is present at the upper pole of the right kidney. Kidneys and ureters otherwise appear normal. Urinary bladder is very full with dome at L5 level. Uterus and ovaries appear normal Appendix is normal. Scattered collections of fluid in small bowel and colon with some air-fluid levels. No bowel wall thickening is seen. No formed stool is identified. Stomach is also partially filled with fluid. Abdominal aorta and inferior vena cava appear normal. No lymphadenopathy or ascites is seen. No other abnormal abdominal mass or fluid collection is seen. Abdominal and pelvic wall structures appear intact. Visualized bony structures are unremarkable. IMPRESSION: 1. Mild fatty liver. 2. Parapelvic cyst upper pole right kidney. 3. Scattered fluid collections in small bowel and colon. Gastroenteritis/hypersecretory state? 4. Very full urinary bladder extending up to L5 level. 5. No other significant abdominal or pelvic findings. Electronically signed by: Chico Hutchins Jr., M.D. Josette Sloan MD IMG CT PROCEDURES Final Result * POCT glucose (05/29/2018 4:00 PM BROACH SETTER) [facility] Glucose, POC 98 71 - 98 mg/dL TOMY SAHU ([place]) Blood specimen (specimen) 05/29/2018 4:00 PM BROACH SETTER 05/29/2018 4:00 PM BROACH SETTER Narrative TOMY SAHU ([place]) - 05/29/2018 4:30 PM BROACH SETTER Josette Sloan MD LAB POCT ORDERABLES - DE VICE Final Result TOMY SAHU ([place]) 1 [facility] [place] [address] * eGFR (05/29/2018 3:54 PM BROACH SETTER) [facility] eGFR 145 mL/min/1.7 3 m2 TOMY SAHU ([place]) Comment: Interpretive Data Reference Interval Normal ?>/= 90 mL/min/1.73m2 Mildly decreased* ? 60 - 89 mL/min/1.73m2 Mildly to moderately decreased ?45 - 59 mL/min/1.73m2 Moderately to severely decreased ??30 - 44 mL/min/1.73m2 Severely decreased ?15 - 29 mL/min/1.73m2 Kidney Failure ?< 15 ??mL/min/1.73m2 *Relative to young adult level If -Faroese multiply value by 1.16. Estimated glomerular filtration [...] was last reviewed 2015. Blood specimen (specimen) 05/29/2018 3:54 PM BROACH SETTER 05/29/2018 4:02 PM BROACH SETTER Narrative TOMY LUIS ALBERTO ([place]) - 05/29/2018 4:17 PM BROACH SETTER Josette Sloan MD LAB BLOOD ORDERABLES Fin al Result TOMY LUIS ALBERTO ([place]) 1 [facility] Department of Laboratories [place], [place] [id number] * (ABNORMAL) Phosphorus (05/29/2018 3:54 PM BROACH SETTER) Phosphorus, pl 1.9(L) 2.3 - 4.5 mg/dL TOMY SAHU ([place]) Blood specimen (specimen) 05/29/2018 3:54 PM BROACH SETTER 05/29/2018 4:02 PM BROACH SETTER Narrative ASHLEYNER [facility] ([place]) - 05/29/2018 4:17 PM BROACH SETTER Josette Sloan MD LAB BLOOD ORDERABLES Fin al Result Performing Organization Address City/[facility]/ZIP Co de Phone Number TOMY SAHU ([place]) 1 [facility] [place] [employer] [place] [address] * Magnesium (05/29/2018 3:54 PM BROACH SETTER) Pathologist [facility] Magnesium 1.7 1.6 - 2.4 mg/dL [facility]ERNER [facility] ([place]) Blood specimen (specimen) 05/29/2018 3:54 PM BROACH SETTER 05/29/2018 4:02 PM BROACH SETTER Narrative TOMY [facility] ([place]) - 05/29/2018 4:17 PM BROACH SETTER Josette Sloan MD LAB BLOOD ORDERABLES Fin al Result Performing Organization Address [facility] Co de Phone Number TOMY SAHU ([place]) 1 [facility] [place] [employer] [place] [address] * (ABNORMAL) Basic metabolic panel (05/29/2018 3:54 PM BROACH SETTER) Sodium 137 135 - 145 mmol/L [facility] ([place]) Potassium, pl 3.3 3.3 - 4.9 mmol/L [facility] ([place]) Chloride 104 97 - 110 [...] Calcium 8.6 8.5 - 10.3 mg/dL TOMY [facility] ([place]) Blood specimen (specimen) 05/29/2018 3:54 PM BROACH SETTER 05/29/2018 4:02 PM BROACH SETTER Narrative TOMY AM[facility] ([place]) - 05/29/2018 4:17 PM BROACH SETTER Josette Sloan MD LAB BLOOD ORDERABLES Fin al Result Performing Organization Address [facility]/ZIP Co de Phone Number TOMY SAHU ([place]) 1 [facility] [place] [address] * (ABNORMAL) POCT glucose (05/29/2018 2:37 PM BROACH SETTER) Glucose, POC 141(H) 71 - 98 mg/dL TOMY [facility] ([place]) Blood specimen (specimen) 05/29/2018 2:37 PM BROACH SETTER 05/29/2018 2:37 PM BROACH SETTER Narrative TOMY AM[facility] ([place]) - 05/29/2018 2:38 PM BROACH SETTER Josette Sloan MD LAB POCT ORDERABLES - DE VICE Final Result Performing Organization Address City/[facility]/ZIP Co de Phone Number TOMY SAHU ([place]) 1 [facility] [place] [address] * (ABNORMAL) POCT glucose (05/29/2018 1:39 PM BROACH SETTER) Glucose, POC 148(H) 71 - 98 mg/dL TOMY SAHU ([place]) Blood specimen (specimen) 05/29/2018 1:39 PM BROACH SETTER 05/29/2018 1:39 PM BROACH SETTER Narrative TOMY SAHU ([place]) - 05/29/2018 1:59 PM BROACH SETTER us Josette Sloan MD LAB POCT ORDERABLES - DE VICE Final Result Performing Organization Address [facility] Co de Phone Number TOMY SAHU ([place]) 1 [facility] [place] [employer] [place] [address] * (ABNORMAL) POCT glucose (05/29/2018 12:34 PM BROACH SETTER) Pathologist [facility] Glucose, POC 182(H) 71 - 98 mg/dL TOMY SAHU ([place]) Blood specimen (specimen) 05/29/2018 12:34 PM BROACH SETTER 05/29/2018 12:34 PM BROACH SETTER Narrative TOMY SAHU ([place]) - 05/29/2018 12:35 PM BROACH SETTER us Josette Sloan MD LAB POCT ORDERABLES - DE VICE Final Result Performing Organization Address [facility] Co de Phone Number TOMY SAHU ([place]) 1 [facility] [place] [employer] [place] [address] * eGFR (05/29/2018 11:44 AM BROACH SETTER) Pathologist [facility] eGFR 133 mL/min/1.7 3 m2 TOMY SAHU ([place]) Comment: Interpretive Data Reference Interval Normal ?>/= 90 mL/min/1.73m2 Mildly decreased* ? 60 - 89 mL/min/1.73m2 Mildly to moderately decreased ?45 - 59 mL/min/1.73m2 Moderately to severely decreased ??30 - 44 mL/min/1.73m2 Severely decreased ?15 - 29 mL/min/1.73m2 Kidney Failure ?< 15 ??mL/min/1.73m2 *Relative to young adult level If -Faroese multiply value by 1.16. Estimated glomerular filtration [...] was last reviewed 2015. Blood specimen (specimen) 05/29/2018 11:44 AM BROACH SETTER 05/29/2018 11:51 AM BROACH SETTER Narrative TOMY [facility] ([place]) - 05/29/2018 12:06 PM BROACH SETTER Josette Sloan MD LAB BLOOD ORDERABLES Fin al Result Performing Organization Address City/[facility]/ZIP Co de Phone Number TOMY SAHU ([place]) 1 [facility] [place] [address] * Phosphorus (05/29/2018 11:44 AM BROACH SETTER) Phosphorus, pl 2.3 2.3 - 4.5 mg/dL TOMY [facility] ([place]) Blood specimen (specimen) 05/29/2018 11:44 AM BROACH SETTER 05/29/2018 11:51 AM BROACH SETTER Narrative TOMY [facility] ([place]) - 05/29/2018 12:06 PM BROACH SETTER Josette Sloan MD LAB BLOOD ORDERABLES Fin al Result TOMY SAHU ([place]) 1 [facility] [place] [address] * Magnesium (05/29/2018 11:44 AM BROACH SETTER) Magnesium 1.8 1.6 - 2.4 mg/dL TOMY SAHU ([place]) Blood specimen (specimen) 05/29/2018 11:44 AM BROACH SETTER 05/29/2018 11:51 AM BROACH SETTER Narrative CERNER [facility] ([place]) - 05/29/2018 12:06 PM BROACH SETTER Josette Sloan MD LAB BLOOD ORDERABLES Fin al Result TOMY SAHU ([place]) 1 [facility] [place] [address] * (ABNORMAL) Basic metabolic panel (05/29/2018 11:44 AM BROACH SETTER) Sodium 135 135 - 145 mmol/L [facility] ([place]) Potassium, pl 3.7 3.3 - 4.9 mmol/L [facility] ([place]) Chloride 101 97 - 110 mmol/L [facility] ([place]) CO2 15(L) 22 - 32 mmol/L [facility] ([place]) Anion gap 19(H) 2 - 15 mmol/L [facility] ([place]) BUN 9 8 - 25 mg/dL [facility] ([place]) Creatinine 0.57(L) 0.60 - 1.10 mg/dL [facility] ([place]) [...] mg/dL [facility] ([place]) Blood specimen (specimen) 05/29/2018 11:44 AM BROACH SETTER 05/29/2018 11:51 AM BROACH SETTER Narrative [facility] ([place]) - 05/29/2018 12:06 PM BROACH SETTER Josette Sloan MD LAB BLOOD ORDERABLES Fin al Result TOMY SAHU ([place]) 1 [facility] [place] [address] * (ABNORMAL) POCT glucose (05/29/2018 11:36 AM BROACH SETTER) Glucose, POC 197(H) 71 - 98 mg/dL TOMY SAHU ([place]) Blood specimen (specimen) 05/29/2018 11:36 AM BROACH SETTER 05/29/2018 11:36 AM BROACH SETTER Narrative TOMY SAHU ([place]) - 05/29/2018 11:42 AM BROACH SETTER Josette Sloan MD LAB POCT ORDERABLES - DE VICE Final Result TOMY SAHU ([place]) [address] [place] [address] [place] [address] * (ABNORMAL) POCT glucose (05/29/2018 10:32 AM BROACH SETTER) Glucose, POC 287(H) 71 - 98 mg/dL TOMY SAHU ([place]) Blood specimen (specimen) 05/29/2018 10:32 AM BROACH SETTER 05/29/2018 10:32 AM BROACH SETTER Narrative TOMY SAHU ([place]) - 05/29/2018 10:33 AM BROACH SETTER Josette Sloan MD LAB POCT ORDERABLES - DE VICE Final Result TOMY SAHU ([place]) 1 [facility] [place] [employer] [place] [address] * (ABNORMAL) POCT glucose (05/29/2018 9:13 AM BROACH SETTER) Glucose, POC 263(H) 71 - 98 mg/dL TOMY SAHU ([place]) Blood specimen (specimen) 05/29/2018 9:13 AM BROACH SETTER 05/29/2018 9:13 AM BROACH SETTER Narrative TOMY SAHU ([place]) - 05/29/2018 9:14 AM BROACH SETTER us Josette Sloan MD LAB POCT ORDERABLES - DE VICE Final Result TOMY SAHU ([place]) 1 [facility] [place] [address] * eGFR (05/29/2018 4:39 AM BROACH SETTER) eGFR 140 mL/min/1.7 3 m2 TOMY SAHU ([place]) Comment: Interpretive Data Reference Interval Normal ?>/= 90 mL/min/1.73m2 Mildly decreased* ? 60 - 89 mL/min/1.73m2 Mildly to moderately decreased ?45 - 59 mL/min/1.73m2 Moderately to severely decreased ??30 - 44 mL/min/1.73m2 Severely decreased ?15 - 29 mL/min/1.73m2 Kidney Failure ?< 15 ??mL/min/1.73m2 *Relative to young adult level If -Faroese multiply value by 1.16. Estimated glomerular filtration [...] was last reviewed 2015. Blood specimen (specimen) 05/29/2018 4:39 AM BROACH SETTER 05/29/2018 4:56 AM BROACH SETTER Narrative TOMY SAHU ([place]) - 05/29/2018 5:29 AM BROACH SETTER us Josette Sloan MD LAB BLOOD ORDERABLES Fin al Result TOMY [facility] ([place]) 1 [facility] [place] [address] * (ABNORMAL) CBC without differential (05/29/2018 4:39 AM BROACH SETTER) WBC 14.9(H) 3.8 - 9.9 K/cumm [facility] ([place]) Hgb 13.5 11.9 - 15.5 g/dL [facility] ([place]) Hct 40.1 35.6 - 45.5 % [facility] ([place]) Plt 430(H) 150 - 400 K/cumm [facility] ([place]) MPV 8.6(L) 9.1 - 12.3 fL [facility] ([place]) RBC 4.91 3.90 - 5.20 M/cumm [facility] ([place]) MCV 81.7 81.3 - 96.4 fL [facility] ([place]) MCH 27.5 27.1 - 33.3 pg [facility] ([place]) MCHC 33.7 32.3 - 35.7 g/dL [facility] ([place]) RDW CV 15.6(H) 11.1 - 14.9 % [facility] ([place]) RDW SD 46.8 35.7 - 48.1 fL [facility] ([place]) NRBC abs 0.00 0.00 - 0.01 K/cumm [facility] ([place]) Blood specimen (specimen) 05/29/2018 4:39 AM BROACH SETTER 05/29/2018 4:56 AM BROACH SETTER Narrative [facility] ([place]) - 05/29/2018 4:59 AM BROACH SETTER Josette Sloan MD LAB BLOOD ORDERABLES Fin al Result TOMY AM[facility] ([place]) 1 [facility] [employer] [place] [employer] [place] [address] * Phosphorus (05/29/2018 4:39 AM BROACH SETTER) Phosphorus, pl 2.6 2.3 - 4.5 mg/dL [facility] ([place]) Blood specimen (specimen) 05/29/2018 4:39 AM BROACH SETTER 05/29/2018 4:56 AM BROACH SETTER Narrative [facility] ([place]) - 05/29/2018 5:28 AM BROACH SETTER Josette Sloan MD LAB BLOOD ORDERABLES Fin al Result TOMY AM[facility] ([place]) 1 [facility] [place] [employer] [place] [address] * Magnesium (05/29/2018 4:39 AM BROACH SETTER) Pathologist [facility] Magnesium 1.7 1.6 - 2.4 mg/dL [facility] ([place]) Blood specimen (specimen) 05/29/2018 4:39 AM BROACH SETTER 05/29/2018 4:56 AM BROACH SETTER Narrative [facility] ([place]) - 05/29/2018 5:29 AM BROACH SETTER Josette Sloan MD LAB BLOOD ORDERABLES Fin al Result Performing Organization Address [facility] Co de Phone Number TOMY [facility] ([place]) 1 [facility] [place] [employer] [place] [address] * (ABNORMAL) Basic metabolic panel (05/29/2018 4:39 AM BROACH SETTER) Pathologist [facility] Sodium 136 135 - 145 mmol/L CERNER [...] - 1.10 mg/dL [facility] ([place]) Glucose 305(H) 70 - 199 mg/dL [facility]ERTOSHA [facility] ([place]) Comment: Interpretive Data Fasting glucose [...] Calcium 9.1 8.5 - 10.3 mg/dL TOMY [facility] ([place]) Blood specimen (specimen) 05/29/2018 4:39 AM BROACH SETTER 05/29/2018 4:56 AM BROACH SETTER Narrative TOMY SAHU ([place]) - 05/29/2018 5:29 AM BROACH SETTER Josette Sloan MD LAB BLOOD ORDERABLES Fin al Result TOMY SAHU ([place]) 1 [facility] [place] [address] * (ABNORMAL) Lipase (05/29/2018 4:36 AM BROACH SETTER) Lipase 9(L) 10 - 99 Units/L [facility] ([place]) Blood specimen (specimen) 05/29/2018 4:36 AM BROACH SETTER 05/29/2018 8:32 AM BROACH SETTER Narrative [facility] ([place]) - 05/29/2018 8:46 AM BROACH SETTER Josette Sloan MD LAB BLOOD ORDERABLES Fin al Result TOMY SAHU ([place]) 1 [facility] [place] [address] * (ABNORMAL) POCT glucose (05/28/2018 9:11 PM BROACH SETTER) Glucose, POC 175(H) 71 - 98 mg/dL [facility] ([place]) Blood specimen (specimen) 05/28/2018 9:11 PM BROACH SETTER 05/28/2018 9:11 PM BROACH SETTER Narrative ASHLEYNER [facility] ([place]) - 05/28/2018 9:25 PM BROACH SETTER us Josette Sloan MD LAB POCT ORDERABLES - DE VICE Final Result TOMY [facility] ([place]) 1 [facility] [place] [employer] [place] [address] * POCT glucose (05/28/2018 5:32 PM BROACH SETTER) Glucose, POC 95 71 - 98 mg/dL [facility] ([place]) Blood specimen (specimen) 05/28/2018 5:32 PM BROACH SETTER 05/28/2018 5:32 PM BROACH SETTER Narrative [facility] ([place]) - 05/28/2018 5:34 PM BROACH SETTER us Josette Sloan MD LAB POCT ORDERABLES - DE VICE Final Result Performing Organization Address [facility]/ZIP Co de Phone Number TOMY SAHU ([place]) 1 [facility] [place] [employer] [place] [address] * POCT glucose (05/28/2018 4:28 PM BROACH SETTER) Glucose, POC 91 71 - 98 mg/dL [facility] ([place]) Blood specimen (specimen) 05/28/2018 4:28 PM BROACH SETTER 05/28/2018 4:28 PM BROACH SETTER Narrative A[facility]NER [facility] ([place]) - 05/28/2018 4:47 PM BROACH SETTER us Josette Sloan MD LAB POCT ORDERABLES - DE VICE Final Result TOMY SAHU ([place]) [address] [place] [address] * eGFR (05/28/2018 4:03 PM BROACH SETTER) eGFR 162 mL/min/1.7 3 m2 TOMY SAHU ([place]) Comment: Interpretive Data Reference Interval Normal ?>/= 90 mL/min/1.73m2 Mildly decreased* ? 60 - 89 mL/min/1.73m2 Mildly to moderately decreased ?45 - 59 mL/min/1.73m2 Moderately to severely decreased ??30 - 44 mL/min/1.73m2 Severely decreased ?15 - 29 mL/min/1.73m2 Kidney Failure ?< 15 ??mL/min/1.73m2 *Relative to young adult level If -Faroese multiply value by 1.16. Estimated glomerular filtration [...] was last reviewed 2015. Blood specimen (specimen) 05/28/2018 4:03 PM BROACH SETTER 05/28/2018 4:08 PM BROACH SETTER Narrative TOMY SAHU ([place]) - 05/28/2018 4:26 PM BROACH SETTER us Josette Sloan MD LAB BLOOD ORDERABLES Fin al Result TOMY SAHU ([place]) 1 [facility] [place] [address] * Protime-INR (05/28/2018 4:03 PM BROACH SETTER) PT 12.9 9.5 - 13.0 sec TOMY LUIS ALBERTO ([place]) INR 1.14 0.90 - 1.20 TOMY LUIS ALBERTO ([place]) Comment: Interpretive Data Recommended ranges for Protime INR: 2.0 - 3.0 Most indications for Warfarin therapy (e.g. Treatment of DVT, PE, bioprosthetic valve replacement, prophylaxis venous thrombosis, atrial fibrillation). 2.5 - 3.5 Mechanical mitral valve or dual mechanical mitral and Aortic valve replacement. Current Interpretive Data was last revised on 2014. Blood specimen (specimen) 05/28/2018 4:03 PM BROACH SETTER 05/28/2018 4:08 PM BROACH SETTER Narrative TOMY SAHU ([place]) - 05/28/2018 4:22 PM BROACH SETTER Please run from blood most recently obtained Josette Sloan MD LAB BLOOD ORDERABLES Fin al Result TOMY SAHU ([place]) 1 [facility] [place] [address] * Phosphorus (05/28/2018 4:03 PM BROACH SETTER) Phosphorus, pl 2.7 2.3 - 4.5 mg/dL TOMY LUIS ALBERTO ([place]) Blood specimen (specimen) 05/28/2018 4:03 PM BROACH SETTER 05/28/2018 4:08 PM BROACH SETTER Narrative TOMY SAHU ([place]) - 05/28/2018 4:26 PM BROACH SETTER Josette Sloan MD LAB BLOOD ORDERABLES Fin al Result TOMY SAHU ([place]) 1 [facility] [place] [address] * Magnesium (05/28/2018 4:03 PM BROACH SETTER) Magnesium 1.7 1.6 - 2.4 mg/dL TOMY SAHU ([place]) Blood specimen (specimen) 05/28/2018 4:03 PM BROACH SETTER 05/28/2018 4:08 PM BROACH SETTER Narrative ASHLEYNER [facility] ([place]) - 05/28/2018 4:26 PM BROACH SETTER us Josette Sloan MD LAB BLOOD ORDERABLES Fin al Result TOMY [facility] ([place]) 1 [facility] [place] [address] * (ABNORMAL) Basic metabolic panel (05/28/2018 4:03 PM BROACH SETTER) Sodium 136 135 - 145 mmol/L CERNER [...] - 1.10 mg/dL [facility] ([place]) Glucose 103 70 - 199 mg/dL [facility] ([place]) [...] mg/dL [facility] ([place]) Blood specimen (specimen) 05/28/2018 4:03 PM BROACH SETTER 05/28/2018 4:08 PM BROACH SETTER Narrative [facility] ([place]) - 05/28/2018 4:26 PM BROACH SETTER Josette Sloan MD LAB BLOOD ORDERABLES Fin al Result TOMY MAYAN) 1 [facility] [place] [employer] [place] [address] * POCT glucose (05/28/2018 3:22 PM BROACH SETTER) Glucose, POC 88 71 - 98 mg/dL TOMY SAHU ([place]) Blood specimen (specimen) 05/28/2018 3:22 PM BROACH SETTER 05/28/2018 3:22 PM BROACH SETTER Narrative TOMY SAHU ([place]) - 05/28/2018 3:23 PM BROACH SETTER Jsoette Sloan MD LAB POCT ORDERABLES - DE VICE Final Result Performing Organization Address [facility]/ZIP Co de Phone Number TOMY SAHU ([place]) 1 [facility] [place] [employer] [place] [address] * (ABNORMAL) POCT glucose (05/28/2018 2:24 PM BROACH SETTER) Glucose, POC 102(H) 71 - 98 mg/dL TOMY SAHU ([place]) Blood specimen (specimen) 05/28/2018 2:24 PM BROACH SETTER 05/28/2018 2:24 PM BROACH SETTER Narrative TOMY SAHU ([place]) - 05/28/2018 2:25 PM BROACH SETTER Josette Sloan MD LAB POCT ORDERABLES - DE VICE Final Result Performing Organization Address City/[facility]/ZIP Co de Phone Number TOMY SAHU ([place]) 1 [facility] [place] [employer] [place] [address] * (ABNORMAL) POCT glucose (05/28/2018 1:17 PM BROACH SETTER) Glucose, POC 122(H) 71 - 98 mg/dL TOMY SAHU ([place]) Blood specimen (specimen) 05/28/2018 1:17 PM BROACH SETTER 05/28/2018 1:17 PM BROACH SETTER Narrative TOMY LUQUE) - 05/28/2018 1:24 PM BROACH SETTER us Josette Sloan MD LAB POCT ORDERABLES - DE VICE Final Result TOMY SAHU ([place]) 1 [facility] [place] [address] * eGFR (05/28/2018 12:51 PM BROACH SETTER) eGFR 153 mL/min/1.7 3 m2 TOMY SAHU ([place]) Comment: Interpretive Data Reference Interval Normal ?>/= 90 mL/min/1.73m2 Mildly decreased* ? 60 - 89 mL/min/1.73m2 Mildly to moderately decreased ?45 - 59 mL/min/1.73m2 Moderately to severely decreased ??30 - 44 mL/min/1.73m2 Severely decreased ?15 - 29 mL/min/1.73m2 Kidney Failure ?< 15 ??mL/min/1.73m2 *Relative to young adult level If -Faroese multiply value by 1.16. Estimated glomerular filtration [...] was last reviewed 2015. Blood specimen (specimen) 05/28/2018 12:51 PM BROACH SETTER 05/28/2018 12:54 PM BROACH SETTER Narrative TOMY SAHU ([place]) - 05/28/2018 1:27 PM BROACH SETTER Josette Sloan MD LAB BLOOD ORDERABLES Fin al Result TOMY SAHU ([place]) 1 [facility] [place] [employer] [place] [address] * Phosphorus (05/28/2018 12:51 PM BROACH SETTER) Phosphorus, pl 2.6 2.3 - 4.5 mg/dL TOMY SAHU ([place]) Blood specimen (specimen) 05/28/2018 12:51 PM BROACH SETTER 05/28/2018 12:54 PM BROACH SETTER Narrative TOMY SAHU ([place]) - 05/28/2018 1:27 PM BROACH SETTER Josette Sloan MD LAB BLOOD ORDERABLES Fin al Result Performing Organization Address [facility]/ZIP Co de Phone Number TOMY SAHU ([place]) 1 [facility] [place] [employer] [place] [address] * Magnesium (05/28/2018 12:51 PM BROACH SETTER) Pathologist [facility] Magnesium 1.6 1.6 - 2.4 mg/dL TOMY SAHU ([place]) Blood specimen (specimen) 05/28/2018 12:51 PM BROACH SETTER 05/28/2018 12:54 PM BROACH SETTER Narrative TOMY SAHU ([place]) - 05/28/2018 1:27 PM BROACH SETTER Josette Sloan MD LAB BLOOD ORDERABLES Fin al Result TOMY SAHU ([place]) 1 [facility] [place] [employer] [place] [address] * (ABNORMAL) Basic metabolic panel (05/28/2018 12:51 PM BROACH SETTER) Sodium 135 135 - 145 mmol/L TOMY SAHU ([place]) Potassium, pl 3.2(L) 3.3 - 4.9 mmol/L [facility] ([place]) Chloride 100 97 - 110 mmol/L [facility] ([place]) CO2 18(L) 22 - 32 mmol/L [facility] ([place]) Anion gap 16(H) 2 - 15 mmol/L [facility] ([place]) BUN 6(L) 8 - 25 mg/dL [facility] ([place]) Creatinine 0.37(L) 0.60 - 1.10 mg/dL [facility] ([place]) Glucose 138 70 - 199 mg/dL [facility] ([place]) [...] mg/dL [facility] ([place]) Blood specimen (specimen) 05/28/2018 12:51 PM BROACH SETTER 05/28/2018 12:54 PM BROACH SETTER Narrative TOMY [facility] ([place]) - 05/28/2018 1:27 PM BROACH SETTER Josette Sloan MD LAB BLOOD ORDERABLES Fin al Result TOMY [facility] ([place]) 1 [facility] Department [place] [address] * (ABNORMAL) POCT glucose (05/28/2018 12:27 PM BROACH SETTER) Glucose, POC 137(H) 71 - 98 mg/dL [facility] ([place]) Blood specimen (specimen) 05/28/2018 12:27 PM BROACH SETTER 05/28/2018 12:27 PM BROACH SETTER Narrative [facility] ([place]) - 05/28/2018 12:47 PM BROACH SETTER Josette Sloan MD LAB POCT ORDERABLES - DE VICE Final Result Performing Organization Address [facility] Co de Phone Number TOMY SAHU ([place]) [address] [place] [address] * (ABNORMAL) POCT glucose (05/28/2018 11:14 AM BROACH SETTER) Glucose, POC 148(H) 71 - 98 mg/dL [facility] ([place]) Blood specimen (specimen) 05/28/2018 11:14 AM BROACH SETTER 05/28/2018 11:14 AM BROACH SETTER Narrative TOMY SAHU ([place]) - 05/28/2018 11:16 AM BROACH SETTER Josette Sloan MD LAB POCT ORDERABLES - DE VICE Final Result Performing Organization Address [facility] Co de Phone Number TOMY SAHU ([place]) [address] [place] [id number] * (ABNORMAL) POCT glucose (05/28/2018 10:22 AM BROACH SETTER) [facility] Signature Glucose, POC 182(H) 71 - 98 mg/dL [facility] ([place]) Blood specimen (specimen) 05/28/2018 10:22 AM BROACH SETTER 05/28/2018 10:22 AM BROACH SETTER Narrative TOMY SAHU ([place]) - 05/28/2018 10:28 AM BROACH SETTER Josette Sloan MD LAB POCT ORDERABLES - DE VICE Final Result Performing Organization Address City/[facility] Co de Phone Number TOMY SAHU ([place]) [address] [place] [address] * (ABNORMAL) Blood gas, arterial (05/28/2018 9:50 AM BROACH SETTER) pH, Art 7.39 7.35 - 7.45 [facility]OMY [facility] ([place]) PCO2, Arterial 22(L) 35 - [address] [facility] ([place]) PO2, Arterial 130(H) 83 - 108 mmHg ASHLEYNER [facility] ([place]) HCO3 Art (Calculated) 13(L) 20 - 30 mmol/L [facility] ([place]) BE, art -10 mmol/L TOMY [facility] ([place]) Comment: Interpretive Data No Reference Range Established Current Interpretive Data was last revised on 2017 O2 Sat Art (Measured) 99(H) 90 - 95 % [facility]Y [facility] ([place]) Blood specimen (specimen) 05/28/2018 9:50 AM BROACH SETTER 05/28/2018 9:54 AM BROACH SETTER Narrative TOMY SAHU ([place]) - 05/28/2018 10:04 AM BROACH SETTER Josette Sloan MD LAB BLOOD ORDERABLES Fin al Result Performing Organization Address City/[facility]/ZIP Co de Phone Number TOMY SAHU ([place]) 1 [facility] [place] [address] * Lactate (05/28/2018 9:50 AM BROACH SETTER) Pathologist [facility] Lactate 1.1 0.7 - 2.0 mmol/L [facility] ([place]) Blood specimen (specimen) 05/28/2018 9:50 AM BROACH SETTER 05/28/2018 9:54 AM BROACH SETTER Narrative [facility]OMY [facility] ([place]) - 05/28/2018 10:04 AM BROACH SETTER Josette Sloan MD LAB BLOOD ORDERABLES Fin al Result TOMY [facility] ([place]) 1 [facility] [place] [address] * eGFR (05/28/2018 7:02 AM BROACH SETTER) eGFR 149 mL/min/1.7 3 m2 [facility]Y [facility] ([place]) Comment: Interpretive Data Reference Interval Normal ?>/= 90 mL/min/1.73m2 Mildly decreased* ? 60 - 89 mL/min/1.73m2 Mildly to moderately decreased ?45 - 59 mL/min/1.73m2 Moderately to severely decreased ??30 - 44 mL/min/1.73m2 Severely decreased ?15 - 29 mL/min/1.73m2 Kidney Failure ?< 15 ??mL/min/1.73m2 *Relative to young adult level If -Faroese multiply value by 1.16. Estimated glomerular filtration [...] was last reviewed 2015. Blood specimen (specimen) 05/28/2018 7:02 AM BROACH SETTER 05/28/2018 7:18 AM BROACH SETTER Narrative TOMY SAHU ([place]) - 05/28/2018 7:57 AM BROACH SETTER us Ayana Prado MD LAB BLOOD ORDERABLES Final Resul t TOMY SAHU GracielaVASHTI) 1 [facility] [place] [address] * Bilirubin, direct (05/28/2018 7:02 AM BROACH SETTER) Bilirubin, direct <0.2 0.1 - 0.3 mg/dL TOMY LUQUE) Blood specimen (specimen) 05/28/2018 7:02 AM BROACH SETTER 05/28/2018 7:18 AM BROACH SETTER Narrative TOMY [place]) - 05/28/2018 7:57 AM BROACH SETTER us Ayana Prado MD LAB BLOOD ORDERABLES Final Resul t TOMY SAHU ([place]) 1 [facility] Department [place] [address] * (ABNORMAL) Comprehensive metabolic panel (05/28/2018 7:02 AM BROACH SETTER) Sodium 136 135 - 145 mmol/L CERNER [...] - 1.10 mg/dL [facility] ([place]) Glucose 316(H) 70 - 199 mg/dL [facility] ([place]) [...] 5.0 g/dL [facility] ([place]) Alk phos 116 40 - 130 Units/L [facility] ([place]) ALT 14 7 - 45 Units/L [facility] ([place]) AST 14 10 - 45 Units/L [facility] ([place]) Blood specimen (specimen) 05/28/2018 7:02 AM BROACH SETTER 05/28/2018 7:18 AM BROACH SETTER Narrative ASHLEYNER [facility] ([place]) - 05/28/2018 7:57 AM BROACH SETTER us Ayana Prado MD LAB BLOOD ORDERABLES Final Resul t TOMY [facility] ([place]) 1 [facility] [employer] [place] [address] * (ABNORMAL) Vitamin D 25 hydroxy (05/28/2018 7:02 AM BROACH SETTER) Pathologist [facility] Vitamin D 25-OH 15(L) 30 - 80 ng/mL ASH[facility]NER [facility] ([place]) Blood specimen (specimen) 05/28/2018 7:02 AM BROACH SETTER 05/28/2018 7:06 AM BROACH SETTER Narrative ASHLEYNER [facility] ([place]) - 05/28/2018 7:42 AM BROACH SETTER us Josette Sloan MD LAB BLOOD ORDERABLES Fin al Result Performing Organization Address City/[facility] Co de Phone Number TOMY [facility] ([place]) 1 [facility] [employer] [place] [employer] [place] [address] * (ABNORMAL) CBC without differential (05/28/2018 7:02 AM BROACH SETTER) WBC 13.4(H) 3.8 - 9.9 K/cumm [facility] ([place]) Hgb 13.5 11.9 - 15.5 g/dL [facility] ([place]) Hct 40.5 35.6 - 45.5 % [facility] ([place]) Plt 359 150 - 400 K/cumm [facility] ([place]) MPV 8.7(L) 9.1 - 12.3 fL [facility] ([place]) RBC 4.96 3.90 - 5.20 M/cumm [facility] ([place]) MCV 81.7 81.3 - 96.4 fL [facility] ([place]) MCH 27.2 27.1 - 33.3 pg [facility] ([place]) MCHC 33.3 32.3 - 35.7 g/dL [facility] ([place]) RDW CV 15.4(H) 11.1 - 14.9 % [facility] ([place]) RDW SD 46.2 35.7 - 48.1 fL [facility] ([place]) NRBC abs 0.00 0.00 - 0.01 K/cumm [facility] ([place]) Blood specimen (specimen) 05/28/2018 7:02 AM BROACH SETTER 05/28/2018 7:06 AM BROACH SETTER Narrative ASHLEYNER [facility] ([place]) - 05/28/2018 7:08 AM BROACH SETTER Josette Sloan MD LAB BLOOD ORDERABLES Fin al Result Performing Organization Address City/[facility]/ZIP Co de Phone Number TOMY [facility] ([place]) 1 [facility] [place] [address] * Phosphorus (05/28/2018 7:02 AM BROACH SETTER) Phosphorus, pl 4.0 2.3 - 4.5 mg/dL [facility] ([place]) Blood specimen (specimen) 05/28/2018 7:02 AM BROACH SETTER 05/28/2018 7:06 AM BROACH SETTER Narrative ASHLEYNER [facility] ([place]) - 05/28/2018 7:33 AM BROACH SETTER Josette Sloan MD LAB BLOOD ORDERABLES Fin al Result TOMY [facility] ([place]) 1 [facility] [place] [address] * Magnesium (05/28/2018 7:02 AM BROACH SETTER) Magnesium 1.7 1.6 - 2.4 mg/dL [facility] ([place]) Blood specimen (specimen) 05/28/2018 7:02 AM BROACH SETTER 05/28/2018 7:06 AM BROACH SETTER Narrative TOMY SAHU ([place]) - 05/28/2018 7:33 AM BROACH SETTER Josette Sloan MD LAB BLOOD ORDERABLES Fin al Result Performing Organization Address [facility]/ZIP Co de Phone Number TOMY SAHU ([place]) 1 [facility] [place] [employer] [place] [address] * (ABNORMAL) POCT glucose (05/28/2018 6:34 AM BROACH SETTER) Glucose, POC 290(H) 71 - 98 mg/dL TOMY SAHU ([place]) Blood specimen (specimen) 05/28/2018 6:34 AM BROACH SETTER 05/28/2018 6:34 AM BROACH SETTER Narrative TOMY SAHU ([place]) - 05/28/2018 6:35 AM BROACH SETTER Josette Sloan MD LAB POCT ORDERABLES - DE VICE Final Result Performing Organization Address [facility] Co de Phone Number TOMY SAHU ([place]) 1 [facility] [place] [employer] [place] [address] * (ABNORMAL) POCT glucose (05/28/2018 4:40 AM BROACH SETTER) Glucose, POC 265(H) 71 - 98 mg/dL TOMY SAHU ([place]) Blood specimen (specimen) 05/28/2018 4:40 AM BROACH SETTER 05/28/2018 4:40 AM BROACH SETTER Narrative TOMY SAHU ([place]) - 05/28/2018 4:40 AM BROACH SETTER Josette Sloan MD LAB POCT ORDERABLES - DE VICE Final Result Performing Organization Address City/[facility]/ZIP Co de Phone Number TOMY SAHU ([place]) 1 [facility] [place] [employer] [place] [address] * (ABNORMAL) POCT glucose (05/28/2018 3:29 AM BROACH SETTER) Glucose, POC 250(H) 71 - 98 mg/dL TOMY [facility] ([place]) Blood specimen (specimen) 05/28/2018 3:29 AM BROACH SETTER 05/28/2018 3:29 AM BROACH SETTER Narrative TOMY [facility] ([place]) - 05/28/2018 3:39 AM BROACH SETTER Josette Sloan MD LAB POCT ORDERABLES - DE VICE Final Result Performing Organization Address City/[facility]/ZIP Co de Phone Number TOMY SAHU ([place]) 1 [facility] [place] [employer] [place] [address] * (ABNORMAL) POCT glucose (05/28/2018 3:28 AM BROACH SETTER) Glucose, POC 248(H) 71 - 98 mg/dL [facility] ([place]) Comment:Glu2: Will Repeat Te st Blood specimen (specimen) 05/28/2018 3:28 AM BROACH SETTER 05/28/2018 3:28 AM BROACH SETTER Narrative TOMY [facility] ([place]) - 05/28/2018 3:39 AM BROACH SETTER Josette Sloan MD LAB POCT ORDERABLES - DE VICE Final Result Performing Organization Address [facility] Co de Phone Number TOMY SAHU ([place]) 1 [facility] [place] [employer] [place] [address] * (ABNORMAL) POCT glucose (05/28/2018 2:23 AM BROACH SETTER) Glucose, POC 187(H) 71 - 98 mg/dL [facility]OMY [facility] ([place]) Blood specimen (specimen) 05/28/2018 2:23 AM BROACH SETTER 05/28/2018 2:23 AM BROACH SETTER Narrative TOMY [facility] ([place]) - 05/28/2018 2:31 AM BROACH SETTER Josette Sloan MD LAB POCT ORDERABLES - DE VICE Final Result TOMY SAHU ([place]) 1 [facility] [place] [employer] [place] [address] * (ABNORMAL) POCT glucose (05/28/2018 1:22 AM BROACH SETTER) Glucose, POC 134(H) 71 - 98 mg/dL TOMY SAHU ([place]) Blood specimen (specimen) 05/28/2018 1:22 AM BROACH SETTER 05/28/2018 1:22 AM BROACH SETTER Narrative TOMY SAHU ([place]) - 05/28/2018 1:31 AM BROACH SETTER us Josette Sloan MD LAB POCT ORDERABLES - DE VICE Final Result TOMY SAHU ([place]) 1 [facility] [place] [employer] [place] [address] * POCT glucose (05/28/2018 12:21 AM BROACH SETTER) [facility] Glucose, POC 95 71 - 98 mg/dL TOMY SAHU ([place]) Blood specimen (specimen) 05/28/2018 12:21 AM BROACH SETTER 05/28/2018 12:21 AM BROACH SETTER Narrative TOMY SAHU ([place]) - 05/28/2018 12:24 AM BROACH SETTER us Josette Sloan MD LAB POCT ORDERABLES - DE VICE Final Result TOMY SAHU ([place]) 1 [facility] [place] [employer] [place] [address] * eGFR (05/28/2018 12:00 AM BROACH SETTER) eGFR 164 mL/min/1.7 3 m2 TOMY SAHU ([place]) Comment: Interpretive Data Reference Interval Normal ?>/= 90 mL/min/1.73m2 Mildly decreased* ? 60 - 89 mL/min/1.73m2 Mildly to moderately decreased ?45 - 59 mL/min/1.73m2 Moderately to severely decreased ??30 - 44 mL/min/1.73m2 Severely decreased ?15 - 29 mL/min/1.73m2 Kidney Failure ?< 15 ??mL/min/1.73m2 *Relative to young adult level If -Faroese multiply value by 1.16. Estimated glomerular filtration [...] was last reviewed 2015. Blood specimen (specimen) 05/28/2018 05/28/2018 12:04 AM BROACH SETTER Narrative [facility] ([place]) - 05/28/2018 12:22 AM BROACH SETTER Josette Sloan MD LAB BLOOD ORDERABLES Fin al Result TOMY [facility] ([place]) 1 [facility] [place] [address] * (ABNORMAL) Basic metabolic panel (05/28/2018 12:00 AM BROACH SETTER) Sodium 137 135 - 145 mmol/L [facility] ([place]) Potassium, pl 2.5(C) 3.3 - 4.9 mmol/L [facility] ([place]) Comment:Critical Result call ed to and read back by Joselin Parra-ICU, DATE: 2018-05-28 00:22:56 BY: Irasema Gould Chloride 100 97 - 110 mmol/L [facility] ([place]) CO2 22 22 - 32 mmol/L [facility] ([place]) Anion gap 15 2 - 15 mmol/L [facility] ([place]) BUN <3(L) 8 - 25 mg/dL [facility] ([place]) Creatinine 0.30(L) 0.60 - 1.10 mg/dL [facility] ([place]) Glucose 104 70 - 199 mg/dL [facility] ([place]) [...] 2017. Calcium 8.4(L) 8.5 - 10.3 mg/dL [facility] ([place]) Blood specimen (specimen) 05/28/2018 05/28/2018 12:04 AM BROACH SETTER Narrative [facility] ([place]) - 05/28/2018 12:22 AM BROACH SETTER us Josette Sloan MD LAB BLOOD ORDERABLES Fin al Result Performing Organization Address [facility]/ZIP Co de Phone Number TOMY SAHU ([place]) [address] [facility] [place] [address] * (ABNORMAL) POCT glucose (05/27/2018 11:20 PM BROACH SETTER) [facility] Signature Glucose, POC 116(H) 71 - 98 mg/dL [facility] ([place]) Blood specimen (specimen) 05/27/2018 11:20 PM BROACH SETTER 05/27/2018 11:20 PM BROACH SETTER Narrative [facility] ([place]) - 05/27/2018 11:23 PM BROACH SETTER Josette Sloan MD LAB POCT ORDERABLES - DE VICE Final Result Performing Organization Address City/[facility] Co de Phone Number TOMY SAHU ([place]) 1 [facility] [place] [place] [address] * (ABNORMAL) POCT glucose (05/27/2018 10:16 PM BROACH SETTER) Glucose, POC 149(H) 71 - 98 mg/dL TOMY SAHU ([place]) Blood specimen (specimen) 05/27/2018 10:16 PM BROACH SETTER 05/27/2018 10:16 PM BROACH SETTER Narrative TOMY SAHU ([place]) - 05/27/2018 10:26 PM BROACH SETTER us Josette Sloan MD LAB POCT ORDERABLES - DE VICE Final Result TOMY SAHU ([place]) [address] [place] [address] [place] [place] [address] * (ABNORMAL) POCT glucose (05/27/2018 9:01 PM BROACH SETTER) Glucose, POC 147(H) 71 - 98 mg/dL TOMY SAHU ([place]) Blood specimen (specimen) 05/27/2018 9:01 PM BROACH SETTER 05/27/2018 9:01 PM BROACH SETTER Narrative TOMY SAHU ([place]) - 05/27/2018 9:03 PM BROACH SETTER us Josette Sloan MD LAB POCT ORDERABLES - DE VICE Final Result OTMY SAHU ([place]) [address] [place] [address] [place] [address] * (ABNORMAL) POCT glucose (05/27/2018 8:00 PM BROACH SETTER) Glucose, POC 138(H) 71 - 98 mg/dL TOMY SAHU ([place]) Blood specimen (specimen) 05/27/2018 8:00 PM BROACH SETTER 05/27/2018 8:00 PM BROACH SETTER Narrative TOMY SAHU ([place]) - 05/27/2018 8:10 PM BROACH SETTER Josette Sloan MD LAB POCT ORDERABLES - DE VICE Final Result Performing Organization Address City/[facility]/ZIP Co de Phone Number TOMY [place]) 1 [facility] [employer] [place] [address] * (ABNORMAL) POCT glucose (05/27/2018 7:10 PM BROACH SETTER) Glucose, POC 99(H) 71 - 98 mg/dL TOMY SAHU ([place]) Blood specimen (specimen) 05/27/2018 7:10 PM BROACH SETTER 05/27/2018 7:10 PM BROACH SETTER Narrative TOMY [place]) - 05/27/2018 7:13 PM BROACH SETTER Josette Sloan MD LAB POCT ORDERABLES - DE VICE Final Result Performing Organization Address [facility] Co de Phone Number TOMY SAHU ([place]) 1 [facility] [employer] [place] [address] * eGFR (05/27/2018 6:15 PM BROACH SETTER) Pathologist [facility] eGFR 156 mL/min/1.7 3 m2 TOMY SAHU ([place]) Comment: Interpretive Data Reference Interval Normal ?>/= 90 mL/min/1.73m2 Mildly decreased* ? 60 - 89 mL/min/1.73m2 Mildly to moderately decreased ?45 - 59 mL/min/1.73m2 Moderately to severely decreased ??30 - 44 mL/min/1.73m2 Severely decreased ?15 - 29 mL/min/1.73m2 Kidney Failure ?< 15 ??mL/min/1.73m2 *Relative to young adult level If -Faroese multiply value by 1.16. Estimated glomerular filtration [...] was last reviewed 2015. Blood specimen (specimen) 05/27/2018 6:15 PM BROACH SETTER 05/27/2018 6:18 PM BROACH SETTER Narrative TOMY [facility] ([place]) - 05/27/2018 6:39 PM BROACH SETTER us Josette Sloan MD LAB BLOOD ORDERABLES Fin al Result TOMY [facility] ([place]) 1 [facility] [place] [address] * (ABNORMAL) Basic metabolic panel (05/27/2018 6:15 PM BROACH SETTER) Sodium 135 135 - 145 mmol/L [facility] ([place]) Potassium, pl 2.9(C) 3.3 - 4.9 mmol/L [facility] ([place]) Comment:Critical Result call ed to and read back by cristobal yen icu , DATE: 2018-05-27 18:38:55 BY: yogi yoon Chloride 101 97 - 110 mmol/L [facility] ([place]) CO2 20(L) 22 - 32 mmol/L [facility] ([place]) Anion gap 14 2 - 15 mmol/L [facility] ([place]) BUN 4(L) 8 - 25 mg/dL [facility] ([place]) Creatinine 0.35(L) 0.60 - 1.10 mg/dL [facility] ([place]) Glucose 120 70 - 199 mg/dL [facility] ([place]) [...] 8.6 8.5 - 10.3 mg/dL TOMY SAHU ([place]) Blood specimen (specimen) 05/27/2018 6:15 PM BROACH SETTER 05/27/2018 6:18 PM BROACH SETTER Narrative TOMY SAHU ([place]) - 05/27/2018 6:39 PM BROACH SETTER Josette Sloan MD LAB BLOOD ORDERABLES Fin al Result TOMY SAHU ([place]) [address] [place] [address] [place] [address] * (ABNORMAL) POCT glucose (05/27/2018 6:08 PM BROACH SETTER) Glucose, POC 108(H) 71 - 98 mg/dL TOMY SAHU ([place]) Blood specimen (specimen) 05/27/2018 6:08 PM BROACH SETTER 05/27/2018 6:08 PM BROACH SETTER Narrative TOMY SAHU ([place]) - 05/27/2018 6:26 PM BROACH SETTER Josette Sloan MD LAB POCT ORDERABLES - DE VICE Final Result TOMY SAHU ([place]) [address] [place] [address] [place] [address] * (ABNORMAL) POCT glucose (05/27/2018 5:13 PM BROACH SETTER) Glucose, POC 148(H) 71 - 98 mg/dL TOMY SAHU ([place]) Blood specimen (specimen) 05/27/2018 5:13 PM BROACH SETTER 05/27/2018 5:13 PM BROACH SETTER Narrative TOMY SAHU ([place]) - 05/27/2018 5:17 PM BROACH SETTER us Josette Sloan MD LAB POCT ORDERABLES - DE VICE Final Result TOMY LU[place]) 1 [facility] [employer] [place] [address] * (ABNORMAL) POCT glucose (05/27/2018 4:12 PM BROACH SETTER) Glucose, POC 179(H) 71 - 98 mg/dL TOMY SAHU ([place]) Blood specimen (specimen) 05/27/2018 4:12 PM BROACH SETTER 05/27/2018 4:12 PM BROACH SETTER Narrative TOMY SAHU ([place]) - 05/27/2018 4:22 PM BROACH SETTER Josette Sloan MD LAB POCT ORDERABLES - DE VICE Final Result Performing Organization Address City/[facility]/ZIP Co de Phone Number TOMY SAHU ([place]) 1 [facility] [employer] [place] [address] * (ABNORMAL) POCT glucose (05/27/2018 2:46 PM BROACH SETTER) Glucose, POC 109(H) 71 - 98 mg/dL TOMY SAHU ([place]) Blood specimen (specimen) 05/27/2018 2:46 PM BROACH SETTER 05/27/2018 2:46 PM BROACH SETTER Narrative TOMY SAHU ([place]) - 05/27/2018 2:49 PM BROACH SETTER Josette Sloan MD LAB POCT ORDERABLES - DE VICE Final Result TOMY SAHU ([place]) 1 [facility] [place] [employer] [place] [address] * (ABNORMAL) POCT glucose (05/27/2018 1:48 PM BROACH SETTER) Glucose, POC 128(H) 71 - 98 mg/dL TOMY SAHU ([place]) Blood specimen (specimen) 05/27/2018 1:48 PM BROACH SETTER 05/27/2018 1:48 PM BROACH SETTER Narrative TOMY LUQUE) - 05/27/2018 1:51 PM BROACH SETTER us Josette Sloan MD LAB POCT ORDERABLES - DE VICE Final Result TOMY LUQUE) 1 [facility] Department [place] [address] * eGFR (05/27/2018 1:13 PM BROACH SETTER) eGFR 159 mL/min/1.7 3 m2 TOMY SAHU ([place]) Comment: Interpretive Data Reference Interval Normal ?>/= 90 mL/min/1.73m2 Mildly decreased* ? 60 - 89 mL/min/1.73m2 Mildly to moderately decreased ?45 - 59 mL/min/1.73m2 Moderately to severely decreased ??30 - 44 mL/min/1.73m2 Severely decreased ?15 - 29 mL/min/1.73m2 Kidney Failure ?< 15 ??mL/min/1.73m2 *Relative to young adult level If -Faroese multiply value by 1.16. Estimated glomerular filtration [...] was last reviewed 2015. Blood specimen (specimen) 05/27/2018 1:13 PM BROACH SETTER 05/27/2018 1:37 PM BROACH SETTER Narrative TOMY LUQUE) - 05/27/2018 2:10 PM BROACH SETTER Josette Sloan MD LAB BLOOD ORDERABLES Fin al Result Performing Organization Address [facility] Co de Phone Number TOMY SAHU ([place]) 1 [place] [address] * (ABNORMAL) Hemoglobin A1c (05/27/2018 1:13 PM BROACH SETTER) Hgb A1C 9.5(H) 4.0 - 5.6 % [facility] ([place]) Estimated Average Glucose 226 mg/dL [facility] ([place]) Comment: The ADA recommends reporting an estimated Average Glucose (eAG) with all Hemoglobin A1c results using the equation derived from a study of 507 normal and diabetic adults. ??Minority populations were underrepresented and children were not included. ?? (Diabetes Care 31:6116-8741, 2008). ??The eAG is not equivalent to a fasting glucose. Blood specimen (specimen) 05/27/2018 1:13 PM BROACH SETTER 05/27/2018 1:37 PM BROACH SETTER Narrative TOMY [facility] ([place]) - 05/27/2018 2:31 PM BROACH SETTER Josette Sloan MD LAB BLOOD ORDERABLES Fin al Result Performing Organization Address [facility] de Phone Number TOMY SAHU ([place]) 1 [facility] [place] [employer] [place] [address] * (ABNORMAL) Phosphorus (05/27/2018 1:13 PM BROACH SETTER) Phosphorus, pl 2.1(L) 2.3 - 4.5 mg/dL [facility] ([place]HT[place]) Blood specimen (specimen) 05/27/2018 1:13 PM BROACH SETTER 05/27/2018 1:37 PM BROACH SETTER Narrative TOMY [facility] (VSAHTI) - 05/27/2018 2:10 PM BROACH SETTER Josette Sloan MD LAB BLOOD ORDERABLES Fin al Result Performing Organization Address [facility]/ZIP Co de Phone Number TOMY SAHU ([place]) 1 [facility] [place] [address] * Magnesium (05/27/2018 1:13 PM BROACH SETTER) Magnesium 1.6 1.6 - 2.4 mg/dL [facility] ([place]) Blood specimen (specimen) 05/27/2018 1:13 PM BROACH SETTER 05/27/2018 1:37 PM BROACH SETTER Narrative [facility] SA[facility] ([place]) - 05/27/2018 2:10 PM BROACH SETTER us Josette Sloan MD LAB BLOOD ORDERABLES Fin al Result TOMY SAHU ([place]) 1 [facility] Department [place] [address] * (ABNORMAL) Basic metabolic panel (05/27/2018 1:13 PM BROACH SETTER) Pathologist [facility] Sodium 136 135 - 145 mmol/L [facility] ([place]) Potassium, pl 3.0(C) 3.3 - 4.9 mmol/L [facility] ([place]) Comment:Critical Result call ed to and read back by josi crystal [facility] , DATE: 2018-05-27 14:10:26 BY: yogi yoon Chloride 101 97 - 110 mmol/L [facility] ([place]) CO2 17(L) 22 - 32 mmol/L [facility] ([place]) Anion gap 19(H) 2 - 15 mmol/L [facility] ([place]) BUN 6(L) 8 - 25 mg/dL [facility] ([place]) Creatinine 0.33(L) 0.60 - 1.10 mg/dL [facility] ([place]) Glucose 158 70 - 199 mg/dL [facility] ([place]) Comment: Interpretive Data [...] mg/dL TOMY SAHU ([place]) Blood specimen (specimen) 05/27/2018 1:13 PM BROACH SETTER 05/27/2018 1:37 PM BROACH SETTER Narrative TOMY SAHU ([place]) - 05/27/2018 2:10 PM BROACH SETTER Josette Sloan MD LAB BLOOD ORDERABLES Fin al Result TOMY SAHU ([place]) 1 [facility] [place] [address] * (ABNORMAL) POCT glucose (05/27/2018 12:45 PM BROACH SETTER) Glucose, POC 143(H) 71 - 98 mg/dL TOMY SAHU ([place]) Blood specimen (specimen) 05/27/2018 12:45 PM BROACH SETTER 05/27/2018 12:45 PM BROACH SETTER Narrative TOMY SAHU ([place]) - 05/27/2018 12:49 PM BROACH SETTER Josette Sloan MD LAB POCT ORDERABLES - DE VICE Final Result TOMY SAHU ([place]) [address] [place] [address] [place] [address] * (ABNORMAL) POCT glucose (05/27/2018 11:50 AM BROACH SETTER) Glucose, POC 109(H) 71 - 98 mg/dL TOMY SAHU ([place]) Blood specimen (specimen) 05/27/2018 11:50 AM BROACH SETTER 05/27/2018 11:50 AM BROACH SETTER Narrative TOMY SAHU ([place]) - 05/27/2018 12:11 PM BROACH SETTER us Josette Sloan MD LAB POCT ORDERABLES - DE VICE Final Result Performing Organization Address [facility]/ZIP Co de Phone Number TOMY LUQUE) 1 [facility] [employer] [place] [address] * (ABNORMAL) POCT glucose (05/27/2018 10:48 AM BROACH SETTER) Glucose, POC 116(H) 71 - 98 mg/dL TOMY SAHU ([place]) Blood specimen (specimen) 05/27/2018 10:48 AM BROACH SETTER 05/27/2018 10:48 AM BROACH SETTER Narrative TOMY SAHU ([place]) - 05/27/2018 10:54 AM BROACH SETTER us Sanjuanita Enamorado MD LAB POCT ORDERABLES - DEVICE Final Result Performing Organization Address [facility] Co de Phone Number TOMY SAHU ([place]) 1 [facility] [place] [employer] [place] [address] * (ABNORMAL) POCT glucose (05/27/2018 9:48 AM BROACH SETTER) Glucose, POC 119(H) 71 - 98 mg/dL TOMY SAHU ([place]) Blood specimen (specimen) 05/27/2018 9:48 AM BROACH SETTER 05/27/2018 9:48 AM BROACH SETTER Narrative TOMY SAHU ([place]) - 05/27/2018 9:51 AM BROACH SETTER us Sanjuanita Enamorado MD LAB POCT ORDERABLES - DEVICE Final Result TOMY SAHU ([place]) 1 [facility] [place] [employer] [place] [address] * (ABNORMAL) POCT glucose (05/27/2018 8:53 AM BROACH SETTER) Glucose, POC 119(H) 71 - 98 mg/dL TOMY SAHU ([place]) Blood specimen (specimen) 05/27/2018 8:53 AM BROACH SETTER 05/27/2018 8:53 AM BROACH SETTER Narrative TOMY SAHU ([place]) - 05/27/2018 9:21 AM BROACH SETTER us Sanjuanita Enamorado MD LAB POCT ORDERABLES - DEVICE Final Result Performing Organization Address City/[facility]/ZIP Co de Phone Number TOMY SAHU ([place]) 1 [facility] [place] [employer] [place] [address] * POCT glucose (05/27/2018 7:52 AM BROACH SETTER) Glucose, POC 94 71 - 98 mg/dL TOMY [facility] ([place]) Blood specimen (specimen) 05/27/2018 7:52 AM BROACH SETTER 05/27/2018 7:52 AM BROACH SETTER Narrative TOMY SAHU ([place]) - 05/27/2018 8:02 AM BROACH SETTER us Sanjuanita Enamorado MD LAB POCT ORDERABLES - DEVICE Final Result Performing Organization Address [facility] Co de Phone Number TOMY SAHU ([place]) 1 [facility] [place] [employer] [place] [address] * POCT glucose (05/27/2018 6:51 AM BROACH SETTER) Glucose, POC 93 71 - 98 mg/dL TOMY SAHU ([place]) Blood specimen (specimen) 05/27/2018 6:51 AM BROACH SETTER 05/27/2018 6:51 AM BROACH SETTER Narrative TOMY [facility] ([place]) - 05/27/2018 6:52 AM BROACH SETTER us Sanjuanita Enamorado MD LAB POCT ORDERABLES - DEVICE Final Result TOMY SAHU ([place]) 1 [facility] [place] [employer] [place] [address] * ECG 12 lead (05/27/2018 6:22 AM BROACH SETTER) 05/27/2018 6:22 AM BROACH SETTER Narrative [facility] - 05/30/2018 3:06 PM BROACH SETTER Vent Rate: 119 bpm RR Interval: 504 msec NV Interval: 122 msec QRS Duration: 81 msec QT Interval: 340 msec QTC Interval: 410 msec P-R-T [place]: 75 - 94 - 19 degrees SINUS TACHYCARDIA POSSIBLE LEFT ATRIAL ENLARGEMENT [-0.1mV P WAVE IN V1/V2] BORDERLINE RIGHT AXIS DEVIATION [QRS AXIS > 90] NONSPECIFIC ST \T\ T-WAVE ABNORMALITY ABNORMAL RHYTHM ECG Electronically Signed By: Dr Dung Randall us Ayana Prado MD ECG ORDERABLES Edited Result - Final Performing Organization Address [facility] Co de Phone Number [email or web address] [facility] * (ABNORMAL) POCT glucose (05/27/2018 5:54 AM BROACH SETTER) Glucose, POC 142(H) 71 - 98 mg/dL [facility] ([place]) Blood specimen (specimen) 05/27/2018 5:54 AM BROACH SETTER 05/27/2018 5:54 AM BROACH SETTER Narrative [facility] ([place]) - 05/27/2018 5:56 AM BROACH SETTER us Sanjuanita Enamorado MD LAB POCT ORDERABLES - DEVICE Final Result Performing Organization Address [facility] de Phone Number TOMY SAHU ([place]) 1 [facility] [employer] [place] [employer] [place] [address] * (ABNORMAL) POCT glucose (05/27/2018 4:56 AM BROACH SETTER) Glucose, POC 203(H) 71 - 98 mg/dL [facility] ([place]) Blood specimen (specimen) 05/27/2018 4:56 AM BROACH SETTER 05/27/2018 4:56 AM BROACH SETTER Narrative [facility] ([place]) - 05/27/2018 4:57 AM BROACH SETTER us Sanjuanita Enamorado MD LAB POCT ORDERABLES - DEVICE Final Result Performing Organization Address [facility] Co de Phone Number TOMY SAHU ([place]) [address] [place] [address] * eGFR (05/27/2018 4:28 AM BROACH SETTER) Pathologist [facility] eGFR 154 mL/min/1.7 3 m2 TOMY SAHU ([place]) Comment: Interpretive Data Reference Interval Normal ?>/= 90 mL/min/1.73m2 Mildly decreased* ? 60 - 89 mL/min/1.73m2 Mildly to moderately decreased ?45 - 59 mL/min/1.73m2 Moderately to severely decreased ??30 - 44 mL/min/1.73m2 Severely decreased ?15 - 29 mL/min/1.73m2 Kidney Failure ?< 15 ??mL/min/1.73m2 *Relative to young adult level If -Faroese multiply value by 1.16. Estimated glomerular filtration [...] was last reviewed 2015. Blood specimen (specimen) 05/27/2018 4:28 AM BROACH SETTER 05/27/2018 4:35 AM BROACH SETTER Narrative TOMY SAHU ([place]) - 05/27/2018 5:10 AM BROACH SETTER us Pato Haney MD LAB BLOOD ORDERABLES Final R esult TOMY SAHU ([place]) 1 [facility] [place] [address] * (ABNORMAL) Differential, auto (05/27/2018 4:28 AM BROACH SETTER) Neutrophil abs 12.3(H) 1.7 - 6.5 K/cumm [facility] ([place]) Imm gran abs 0.1 0.0 - 0.1 K/cumm [facility] ([place]) Lymphocyte abs 2.1 0.8 - 3.3 K/cumm [facility] ([place]) Monocyte abs 1.5(H) 0.2 - 0.8 K/cumm [facility] ([place]) Eosinophil abs 0.0 0.0 - 0.5 K/cumm [facility] ([place]) Basophil abs 0.0 0.0 - 0.1 K/cumm [facility] ([place]) Neutrophil pct 76.8 % [facility] ([place]) Comment: Interpretive [...] was last revised on 2017. Lymphocyte pct 13.3 % [facility] ([place]) Comment: Interpretive Data Percent cell count reference ranges are not reported, since discordance with absolute values may lead to misinterpretation of CBC data. Current Interpretive Data was last revised on 2017. Monocyte pct 9.4 % [facility] ([place]) Comment: Interpretive Data [...] last revised on 2017. Blood specimen (specimen) 05/27/2018 4:28 AM BROACH SETTER 05/27/2018 4:35 AM BROACH SETTER Narrative [facility] ([place]) - 05/27/2018 4:43 AM BROACH SETTER us Pato Haney MD LAB BLOOD ORDERABLES Final R esult TOMY [facility] ([place]) 1 [facility] Department [place] [address] * (ABNORMAL) CBC with auto differential (05/27/2018 4:28 AM BROACH SETTER) WBC 16.0(H) 3.8 - 9.9 K/cumm [facility] ([place]) Hgb 12.0 11.9 - 15.5 g/dL [facility] ([place]) Hct 36.0 35.6 - 45.5 % [facility] ([place]) Plt 383 150 - 400 K/cumm [facility] ([place]) MPV 9.0(L) 9.1 - 12.3 fL [facility] ([place]) RBC 4.41 3.90 - 5.20 M/cumm [facility] ([place]) MCV 81.6 81.3 - 96.4 fL [facility] ([place]) MCH 27.2 27.1 - 33.3 pg [facility] ([place]) MCHC 33.3 32.3 - 35.7 g/dL [facility] ([place]) RDW CV 15.9(H) 11.1 - 14.9 % [facility] ([place]) RDW SD 48.0 35.7 - 48.1 fL [facility] ([place]) NRBC abs 0.00 0.00 - 0.01 K/cumm [facility] ([place]) Blood specimen (specimen) 05/27/2018 4:28 AM BROACH SETTER 05/27/2018 4:35 AM BROACH SETTER Narrative [facility] ([place]) - 05/27/2018 4:43 AM BROACH SETTER us Pato Haney MD LAB BLOOD ORDERABLES Final R esult [facility] ([place]) 1 [facility] [place] [address] * (ABNORMAL) Basic metabolic panel (05/27/2018 4:28 AM BROACH SETTER) Sodium 139 135 - 145 mmol/L [facility] ([place]) Potassium, pl 4.1 3.3 - 4.9 mmol/L [facility] ([place]) Comment:Hemolysis present. R esults may be affected. Chloride 104 97 - 110 mmol/L [facility] ([place]) CO2 19(L) 22 - 32 mmol/L [facility] ([place]) Anion gap 17(H) 2 - 15 mmol/L [facility] ([place]) BUN 11 8 - 25 mg/dL [facility] ([place]) Creatinine 0.36(L) 0.60 - 1.10 mg/dL [facility] ([place]) Glucose 168 70 - 199 mg/dL [facility] ([place]) Comment: Interpretive Data [...] 2017. Calcium 8.7 8.5 - 10.3 mg/dL [facility] ([place]I) Blood specimen (specimen) 05/27/2018 4:28 AM BROACH SETTER 05/27/2018 4:35 AM BROACH SETTER Narrative [facility] ([place]) - 05/27/2018 5:10 AM BROACH SETTER us Pato Haney MD LAB BLOOD ORDERABLES Final R esult TOMY SAHU ([place]) 1 [facility] [place] [address] * (ABNORMAL) POCT glucose (05/27/2018 4:00 AM BROACH SETTER) Glucose, POC 114(H) 71 - 98 mg/dL [facility] ([place]) Blood specimen (specimen) 05/27/2018 4:00 AM BROACH SETTER 05/27/2018 4:00 AM BROACH SETTER Narrative [facility] ([place]) - 05/27/2018 4:01 AM BROACH SETTER us Sanjuanita Enamorado MD LAB POCT ORDERABLES - DEVICE Final Result TOMY SAHU ([place]) 1 [facility] [place] [employer] [place] [address] * (ABNORMAL) POCT glucose (05/27/2018 2:52 AM BROACH SETTER) Glucose, POC 113(H) 71 - 98 mg/dL TOMY [facility] ([place]) Blood specimen (specimen) 05/27/2018 2:52 AM BROACH SETTER 05/27/2018 2:52 AM BROACH SETTER Narrative [facility] ([place]) - 05/27/2018 2:53 AM BROACH SETTER us Sanjuanita Enamorado MD LAB POCT ORDERABLES - DEVICE Final Result Performing Organization Address [facility]/ZIP Co de Phone Number TOMY SAHU ([place]) 1 [facility] [place] [address] * POCT glucose (05/27/2018 1:57 AM BROACH SETTER) Glucose, POC 87 71 - 98 mg/dL [facility] ([place]) Blood specimen (specimen) 05/27/2018 1:57 AM BROACH SETTER 05/27/2018 1:57 AM BROACH SETTER Narrative [facility] ([place]) - 05/27/2018 1:58 AM BROACH SETTER Sanjuanita Enamorado MD LAB POCT ORDERABLES - DEVICE Final Result TOMY SAHU ([place]) 1 [facility] [place] [employer] [place] [address] * (ABNORMAL) POCT glucose (05/27/2018 12:53 AM BROACH SETTER) Glucose, POC 121(H) 71 - 98 mg/dL TOMY [facility] ([place]) Blood specimen (specimen) 05/27/2018 12:53 AM BROACH SETTER 05/27/2018 12:53 AM BROACH SETTER Narrative TOMY SAHU ([place]) - 05/27/2018 12:54 AM BROACH SETTER Sanjuanita Enamorado MD LAB POCT ORDERABLES - DEVICE Final Result TOMY SAHU ([place]) 1 [facility] [place] [employer] [place] [address] * (ABNORMAL) POCT glucose (05/26/2018 11:58 PM BROACH SETTER) Glucose, POC 119(H) 71 - 98 mg/dL TOMY SAHU ([place]) Blood specimen (specimen) 05/26/2018 11:58 PM BROACH SETTER 05/26/2018 11:58 PM BROACH SETTER Narrative TOMY SAHU ([place]) - 05/27/2018 12:02 AM BROACH SETTER us Sanjuanita Enamorado MD LAB POCT ORDERABLES - DEVICE Final Result TOMY SAHU ([place]) 1 [facility] [place] [place] [address] * (ABNORMAL) POCT glucose (05/26/2018 11:07 PM BROACH SETTER) Glucose, POC 168(H) 71 - 98 mg/dL TOMY SAHU ([place]) Blood specimen (specimen) 05/26/2018 11:07 PM BROACH SETTER 05/26/2018 11:07 PM BROACH SETTER Narrative [facility] ([place]) - 05/26/2018 11:08 PM BROACH SETTER us Sanjuanita Enamorado MD LAB POCT ORDERABLES - DEVICE Final Result Performing Organization Address City/[facility]/ZIP Co de Phone Number TOMY SAHU ([place]) 1 [facility] [place] [place] [address] * (ABNORMAL) POCT glucose (05/26/2018 10:02 PM BROACH SETTER) Glucose, POC 164(H) 71 - 98 mg/dL TOMY SAHU ([place]) Blood specimen (specimen) 05/26/2018 10:02 PM BROACH SETTER 05/26/2018 10:02 PM BROACH SETTER Narrative TOMY SAHU ([place]) - 05/26/2018 10:03 PM BROACH SETTER us Sanjuanita Enamorado MD LAB POCT ORDERABLES - DEVICE Final Result Performing Organization Address [facility] Co de Phone Number TOMY SAHU (VASHTI) [address] [facility] [place] [place] [address] * (ABNORMAL) POCT glucose (05/26/2018 8:54 PM BROACH SETTER) Glucose, POC 132(H) 71 - 98 mg/dL TOMY SAHU (VASHTI) Blood specimen (specimen) 05/26/2018 8:54 PM BROACH SETTER 05/26/2018 8:54 PM BROACH SETTER Narrative TOMY SAHU (VASHTI) - 05/26/2018 9:04 PM BROACH SETTER us Sanjuanita Enamorado MD LAB POCT ORDERABLES - DEVICE Final Result TOMY SAHU (VASHTI) [address] [facility] [place] [employer] [place] [address] * (ABNORMAL) POCT glucose (05/26/2018 8:03 PM BROACH SETTER) Glucose, POC 167(H) 71 - 98 mg/dL TOMY SAHU (VASHTI) Blood specimen (specimen) 05/26/2018 8:03 PM BROACH SETTER 05/26/2018 8:03 PM BROACH SETTER Narrative TOMY SAHU (VASHTI) - 05/26/2018 8:04 PM BROACH SETTER us Pato Haney MD LAB POCT ORDERABLES - DEVICE Final Result TOMY SAHU (VASHTI) 1 [facility] [place] [address] * eGFR (05/26/2018 7:03 PM BROACH SETTER) eGFR 137 mL/min/1.7 3 m2 TOMY SAHU (VASHTI) Comment: Interpretive Data Reference Interval Normal ?>/= 90 mL/min/1.73m2 Mildly decreased* ? 60 - 89 mL/min/1.73m2 Mildly to moderately decreased ?45 - 59 mL/min/1.73m2 Moderately to severely decreased ??30 - 44 mL/min/1.73m2 Severely decreased ?15 - 29 mL/min/1.73m2 Kidney Failure ?< 15 ??mL/min/1.73m2 *Relative to young adult level If -Faro[place] multiply value by 1.16. Estimated glomerular filtration [...] was last reviewed 2015. Blood specimen (specimen) 05/26/2018 7:03 PM BROACH SETTER 05/26/2018 7:08 PM BROACH SETTER Narrative TOMY SAHU (VASHTI) - 05/26/2018 7:25 PM BROACH SETTER us Pato Haney MD LAB BLOOD ORDERABLES Final R esult Performing Organization Address City/[facility]/ZIP Co de Phone Number TOMY SAHU ([place]) 1 [facility] [place] [address] * (ABNORMAL) Blood gas, venous (05/26/2018 7:03 PM BROACH SETTER) pH, Venous 7.35 7.32 - 7.43 [facility] ([place]) PCO2, Venous 30(L) 40 - 50 mmHg [facility] ([place]) PO2, Venous 48 mmHg [facility] ([place]) Comment: Interpretive Data No Reference Range Established Current Interpretive Data was last revised on 2017. HCO3 Venous, Calculated 16(L) 20 - 30 mmol/L [facility] ([place]) BE, venous -8 mmol/L [facility] ([place]) Comment: Interpretive Data No Reference Range Established Current Interpretive Data was last revised on 2017. Blood specimen (specimen) 05/26/2018 7:03 PM BROACH SETTER 05/26/2018 7:08 PM BROACH SETTER Narrative [facility] ([place]) - 05/26/2018 7:13 PM BROACH SETTER Pato Haney MD LAB BLOOD ORDERABLES Final R esult TOMY SAUH ([place]) 1 [facility] [place] [employer] [place] [address] * (ABNORMAL) Basic metabolic panel (05/26/2018 7:03 PM BROACH SETTER) Sodium 140 135 - 145 mmol/L [facility] ([place]) Potassium, pl 4.3 3.3 - 4.9 mmol/L [facility] ([place]) Chloride 102 97 - 110 mmol/L [facility] ([place]) CO2 15(L) 22 - 32 mmol/L [facility] ([place]) Anion gap 22(H) 2 - 15 mmol/L [facility] ([place]) BUN 12 8 - 25 mg/dL [facility] ([place]) Creatinine 0.52(L) 0.60 - 1.10 mg/dL [facility] ([place]) Glucose 296(H) 70 - 199 mg/dL TOMY SAHU ([place]) [...] 2017. Calcium 9.6 8.5 - 10.3 mg/dL TOMY SAHU ([place]) Blood specimen (specimen) 05/26/2018 7:03 PM BROACH SETTER 05/26/2018 7:08 PM BROACH SETTER Narrative TOMY SAHU ([place]) - 05/26/2018 7:25 PM BROACH SETTER repeat us Pato Haney MD LAB BLOOD ORDERABLES Final R esult Performing Organization Address City/[facility]/ZIP Co de Phone Number TOMY SAHU ([place]) 1 [facility] [place] [address] * (ABNORMAL) POCT glucose (05/26/2018 7:02 PM BROACH SETTER) [facility] Glucose, POC 281(H) 71 - 98 mg/dL TOMY LUIS ALBERTO ([place]) Blood specimen (specimen) 05/26/2018 7:02 PM BROACH SETTER 05/26/2018 7:02 PM BROACH SETTER Narrative TOMY SAHU ([place]) - 05/26/2018 7:05 PM BROACH SETTER us Pato Haney MD LAB POCT ORDERABLES - DEVICE Final Result TOMY SAHU ([place]) 1 [facility] [place] [address] * (ABNORMAL) POCT glucose (05/26/2018 6:28 PM BROACH SETTER) Glucose, POC 371(C) 71 - 98 mg/dL TOMY SAHU ([place]) Blood specimen (specimen) 05/26/2018 6:28 PM BROACH SETTER 05/26/2018 6:28 PM BROACH SETTER Narrative TOMY SAHU ([place]) - 05/26/2018 6:48 PM BROACH SETTER us Pato Haney MD LAB POCT ORDERABLES - DEVICE Final Result Performing Organization Address [facility]/ZIP Co de Phone Number TOMY SAHU ([place]) [address] [place] [address] Department [place] [address] * (ABNORMAL) Urine culture (05/26/2018 4:27 PM BROACH SETTER) Report Final Report: Greater than or equal to 100,000 colonies/mL of Escherichia coli (.) TOMY SAHU ([place]) Comment:Testing performed by : [facility], [address] [facility] [place] [address] Organism ESCHERICHIA COLI TOMY SAHU ([place]) Urine, clean voided 05/26/2018 4:27 PM BROACH SETTER 05/26/2018 7:26 PM BROACH SETTER Narrative TOMY SAHU ([place]) - 05/27/2018 1:17 PM BROACH SETTER Urine culture reflexed based upon urinalysis results. Testing performed by [facility] Microbiology Laboratory ([phone]) Organism Antibiotic Method Susceptibility Escherichia coli Ampicillin INTERPRETATION Resistant Escherichia coli Cefazolin INTERPRETATION Susceptible Escherichia coli Nitrofurantoin INTERPRETATION Susceptible Escherichia coli Gentamicin INTERPRETATION Susceptible Escherichia coli Trimethoprim with Sulfamethoxazole IN TERPRETATION Susceptible Escherichia coli Meropenem INTERPRETATION Susceptible Escherichia coli Cefepime INTERPRETATION Susceptible Escherichia coli Ciprofloxacin INTERPRETATION Susceptible Escherichia coli Ceftazidime INTERPRETATION Susceptible Escherichia coli Ceftriaxone INTERPRETATION Susceptible Escherichia coli Piperacillin/Tazobactam INTERPRETATIO N Susceptible Escherichia coli Cephalexin INTERPRETATION Susceptible Escherichia coli Cefuroxime-axetil INTERPRETATION Susceptible Escherichia coli Cefdinir INTERPRETATION Susceptible us Boubacar Harrison MD LAB MICROBIOLOGY - GENERAL OR DERABLES Final Result TOMY SAHU ([place]) 1 [facility] [place] [address] * (ABNORMAL) Urinalysis, microscopic only (05/26/2018 4:27 PM BROACH SETTER) Pathologist [facility] WBC, ur >50(A) 0 - 5 /HPF [facility] ([place]) RBC, ur 6-10(A) 0 - 2 /HPF [facility] ([place]) Epithelial cells, squamous, ur 1-5 0 - 5 /HPF [facility] ([place]) Bacteria, ur 4+(A) [facility] ([place]) Hyaline casts, ur 1-5 0 - 10 /LPF [facility] ([place]) Urine, clean voided 05/26/2018 4:27 PM BROACH SETTER 05/26/2018 4:31 PM BROACH SETTER Narrative TOMY [facility] ([place]) - 05/26/2018 4:52 PM BROACH SETTER us Pato Haney MD LAB URINE ORDERABLES Final R esult Performing Organization Address [facility] Co de Phone Number TOMY SAHU ([place]) 1 [facility] [place] [address] * hCG, urine, qualitative (05/26/2018 4:27 PM BROACH SETTER) Pathologist [facility] HCG, ur Negative Negative TOMY SAHU ([place]) Urine 05/26/2018 4:27 PM BROACH SETTER 05/26/2018 4:29 PM BROACH SETTER Narrative TOMY [facility] ([place]) - 05/26/2018 4:52 PM BROACH SETTER us Pato Haney MD LAB URINE ORDERABLES Final R esult Performing Organization Address City/[facility]/ZIP Co de Phone Number TOMY SAHU ([place]) 1 [facility] [place] [address] * (ABNORMAL) Urinalysis reflex to microscopic and culture Urine, clean voided (05/26/2018 4:27 PM BROACH SETTER) Color, ur Yellow Yellow [facility] ([place]) Clarity, ur Turbid(A) Clear [facility] ([place]) Specific gravity, ur 1.027(H) 1.010 - 1.025 [facility] ([place]) pH, urine 6.0 [facility] ([place]) Protein, ur ql 2+(A) Negative [facility] ([place]) Glucose, ur ql 3+(A) Negative [facility] ([place]) Ketones, ur 4+(A) Negative [facility] ([place]) Bilirubin, ur Negative Negative [facility] ([place]) Blood, ur 2+(A) Negative [facility] ([place]) Urobilinogen, ur 0.2 mg/dL [facility] ([place]) Nitrite, ur Positive(A) Negative [facility] ([place]) Leukocyte esterase, ur 2+(A) Negative [facility] ([place]) Urine, clean voided 05/26/2018 4:27 PM BROACH SETTER 05/26/2018 4:29 PM BROACH SETTER Narrative [facility] ([place]) - 05/26/2018 4:52 PM BROACH SETTER ?? Urine pH is affected by diet, medications, systemic acid-base disturbances, and renal tubular function. ??pH may affect urinary stone formation. ??For example, urine pH below 6.0 may help reduce the tendency for calcium phosphate stones and pH greater than 6.0 may reduce the tendency for uric acid stone formation. Source: [employer]. Last revised 05-13-2017 Pato Haney MD LAB MICROBIOLOGY - GENERAL O RDERABLES Final Result TOMY [facility] ([place]) 1 [facility] Department [place] [address] * (ABNORMAL) POCT glucose (05/26/2018 4:19 PM BROACH SETTER) Glucose, POC 305(C) 71 - 98 mg/dL [facility] ([place]) Blood specimen (specimen) 05/26/2018 4:19 PM BROACH SETTER 05/26/2018 4:19 PM BROACH SETTER Narrative [facility] ([place]) - 05/26/2018 4:21 PM BROACH SETTER us Notinfile Unknown LAB POCT ORDERABLES - DEVICE F inal Result TOMY SAHU ([place]) 1 [facility] Department [place] [address] * eGFR (05/26/2018 2:44 PM BROACH SETTER) eGFR 139 mL/min/1.7 3 m2 TOMY SAHU ([place]) Comment: Interpretive Data Reference Interval Normal ?>/= 90 mL/min/1.73m2 Mildly decreased* ? 60 - 89 mL/min/1.73m2 Mildly to moderately decreased ?45 - 59 mL/min/1.73m2 Moderately to severely decreased ??30 - 44 mL/min/1.73m2 Severely decreased ?15 - 29 mL/min/1.73m2 Kidney Failure ?< 15 ??mL/min/1.73m2 *Relative to young adult level If -Faro[place] multiply value by 1.16. Estimated glomerular filtration [...] was last reviewed 2015. Blood specimen (specimen) 05/26/2018 2:44 PM BROACH SETTER 05/26/2018 2:52 PM BROACH SETTER Narrative TOMY SAHU ([place]) - 05/26/2018 3:19 PM BROACH SETTER us Pato Haney MD LAB BLOOD ORDERABLES Final R esult TOMY SAHU ([place]) 1 [facility] Department [place] [address] * (ABNORMAL) Differential, auto (05/26/2018 2:44 PM BROACH SETTER) Neutrophil abs 11.8(H) 1.7 - 6.5 K/cumm [facility] ([place]) Imm gran abs 0.1 0.0 - 0.1 K/cumm [facility] ([place]) Lymphocyte abs 0.8 0.8 - 3.3 K/cumm [facility] ([place]) Monocyte abs 0.7 0.2 - 0.8 K/cumm [facility] ([place]) Eosinophil abs 0.0 0.0 - 0.5 K/cumm [facility] ([place]) Basophil abs 0.0 0.0 - 0.1 K/cumm [facility] ([place]) Neutrophil pct 88.0 % [facility] ([place]) Comment: Interpretive Data Percent cell count reference ranges are not reported, since discordance with absolute values may lead to misinterpretation of CBC data. Current Interpretive Data was last revised on 2017. Imm gran pct 0.5 % [facility] ([place]) Comment: Interpretive Data Percent cell count reference [...] was last revised on 2017. Monocyte pct 5.2 % [facility] ([place]) Comment: Interpretive Data Percent cell count reference ranges are not reported, since discordance with absolute values may lead to misinterpretation of CBC data. Current Interpretive Data was last revised on 2017. Eosinophil pct 0.0 % [facility] ([place]) Comment: Interpretive Data Percent cell count reference [...] last revised on 2017. Blood specimen (specimen) 05/26/2018 2:44 PM BROACH SETTER 05/26/2018 2:52 PM BROACH SETTER Narrative [facility] ([place]) - 05/26/2018 2:55 PM BROACH SETTER Pato Haney MD LAB BLOOD ORDERABLES Final R esult Performing Organization Address City/[facility]/ZIP Co de Phone Number TOMY [facility] ([place]) 1 [facility] [place] [address] * (ABNORMAL) Hepatic function panel (05/26/2018 2:44 PM BROACH SETTER) Bilirubin, total 0.7 0.1 - 1.2 mg/dL [facility] ([place]) Bilirubin, direct <0.2 0.1 - 0.3 mg/dL [facility] ([place]) Protein, pl 8.0 6.5 - 8.5 g/dL [facility] ([place]) Albumin 4.5 3.5 - 5.0 g/dL [facility] ([place]) Alk phos 132(H) 40 - 130 Units/L [facility] ([place]) ALT 22 7 - 45 Units/L [facility] ([place]) AST 22 10 - 45 Units/L [facility] ([place]) Blood specimen (specimen) (Blood, Venous) 05/26/2018 2:44 PM BROACH SETTER 05/26/2018 2:52 PM BROACH SETTER Narrative [facility] ([place]) - 05/26/2018 3:19 PM BROACH SETTER Pato Haney MD LAB BLOOD ORDERABLES Final R esult Performing Organization Address City/[facility]/ZIP Co de Phone Number TOMY SAHU ([place]) 1 [facility] [place] [address] * Lipase (05/26/2018 2:44 PM BROACH SETTER) Lipase 10 10 - 99 Units/L [facility] ([place]) Blood specimen (specimen) (Blood, Venous) 05/26/2018 2:44 PM BROACH SETTER 05/26/2018 2:52 PM BROACH SETTER Narrative TOMY [facility] ([place]) - 05/26/2018 3:19 PM BROACH SETTER us Pato Haney MD LAB BLOOD ORDERABLES Final R esult TOMY [facility] ([place]) 1 [facility] Department [place] [address] * (ABNORMAL) Basic metabolic panel (05/26/2018 2:44 PM BROACH SETTER) Sodium 142 135 - 145 mmol/L CERNER [...] - 1.10 mg/dL [facility] ([place]) Glucose 283(H) 70 - 199 mg/dL [facility] ([place]) [...] mg/dL [facility] ([place]) Blood specimen (specimen) 05/26/2018 2:44 PM BROACH SETTER 05/26/2018 2:52 PM BROACH SETTER Narrative [facility] ([place]) - 05/26/2018 3:19 PM BROACH SETTER us Pato Haney MD LAB BLOOD ORDERABLES Final R esult TOMY [facility] ([place]) 1 [facility] Department [place] [address] * (ABNORMAL) CBC with auto differential (05/26/2018 2:44 PM BROACH SETTER) WBC 13.4(H) 3.8 - 9.9 K/cumm [facility] ([place]) Hgb 13.6 11.9 - 15.5 g/dL [facility] ([place]) Hct 40.4 35.6 - 45.5 % [facility] ([place]) Plt 407(H) 150 - 400 K/cumm [facility] ([place]) MPV 8.9(L) 9.1 - 12.3 fL [facility] ([place]) RBC 4.89 3.90 - 5.20 M/cumm [facility] ([place]) MCV 82.6 81.3 - 96.4 fL [facility] ([place]) MCH 27.8 27.1 - 33.3 pg [facility] ([place]) MCHC 33.7 32.3 - 35.7 g/dL [facility] ([place]) RDW CV 15.6(H) 11.1 - 14.9 % [facility] ([place]) RDW SD 47.5 35.7 - 48.1 fL [facility] ([place]) NRBC abs 0.00 0.00 - 0.01 K/cumm [facility] ([place]) Blood specimen (specimen) (Blood, Venous) 05/26/2018 2:44 PM BROACH SETTER 05/26/2018 2:52 PM BROACH SETTER Narrative [facility] ([place]) - 05/26/2018 2:55 PM BROACH SETTER us Pato Haney MD LAB BLOOD ORDERABLES Final R esult TOMY SAHU ([place]) 1 [facility] Department [place] [address] * (ABNORMAL) POCT glucose (05/26/2018 2:21 PM BROACH SETTER) Glucose, POC 230(H) 71 - 98 mg/dL TOMY SAHU ([place]) Blood specimen (specimen) 05/26/2018 2:21 PM BROACH SETTER 05/26/2018 2:21 PM BROACH SETTER Narrative TOMY SAHU ([place]) - 05/26/2018 2:22 PM BROACH SETTER us Notinfile Unknown LAB POCT ORDERABLES - DEVICE F inal Result Performing Organization Address [facility]/ZIP Co de Phone Number TOMY SAHU ([place]) 1 [facility] [place] [employer] [place] [address] documented in this encounter Visit Diagnoses Diagnosis Type 1 diabetes mellitus with ketoacidosis without coma (HCC) Sinus tachycardia Other specified cardiac dysrhythmias Diabetic ketoacidosis without coma associated with type 1 diabetes mellitus (CMS/HCC) (HCC) Sepsis due to gram-negative UTI (CMS/HCC) (HCC) Nausea and vomiting Nausea with vomiting documented in this encounter Administered Medications Inactive Administered Medications - up to 3 most recent administrations Medication Order MAR Action Action Date Dose Rate Site acetaminophen (TYLENOL) suppository 650 mg 650 mg, rectal, Every 4 hours PRN, fever, Starting on Wed05/30/18 at 1434 acetaminophen (TYLENOL) tablet 650 mg 650 mg, oral, Every 4 hours PRN, 1st line for pain, Starting on Wed05/30/18 at 1433 calcium carbonate (TUMS) chewable tablet 500 mg 500 mg (200 mg of elemental calcium), oral, 3 times daily, First dose on Wed06/01/18 at 1000 Given 06/01/2018 9:35 AM BROACH SETTER 500 mg cefTRIAXone (ROCEPHIN) 1000 mg/10 mL in sterile water (premix) 1,000 mg 1,000 mg, intravenous, at 120 mL/hr, Administer over 5 Minutes, Once, On Nurys 05/26/18 at 1817, For 1 dose, Indications: Urinary Tract/Genitourinary InfectionIndications:Urinary Tract/Genitourinary Infection New Bag 05/26/2018 6:26 PM BROACH SETTER 1,000 mg 120 mL/hr cefTRIAXone (ROCEPHIN) 1000 mg/10 mL in sterile water (premix) 1,000 mg 1,000 mg, intravenous, at 120 mL/hr, Administer over 5 Minutes, Every 24 hours scheduled, First dose (after last reorder) on Wed05/27/18 at 1215, For 5 doses, Indications: Urinary Tract/Genitourinary InfectionIndications:Urinary Tract/Genitourinary Infection New Bag 05/31/2018 8:19 AM BROACH SETTER 1,000 mg 120 mL/hr New Bag 05/30/2018 8:46 AM BROACH SETTER 1,000 mg 120 mL/hr New Bag 05/29/2018 9:17 AM BROACH SETTER 1,000 mg 120 mL/hr cefTRIAXone (ROCEPHIN) 1000 mg/10 mL in sterile water (premix) 1,000 mg 1,000 mg, intravenous, at 120 mL/hr, Administer over 5 Minutes, Every 24 hours scheduled, First dose on Wed06/01/18 at 1515, Indications: Urinary Tract/Genitourinary InfectionIndications:Urinary Tract/Genitourinary Infection New Bag 06/02/2018 8:46 AM BROACH SETTER 1,000 mg 1 20 mL/hr New Bag 06/01/2018 3:50 PM BROACH SETTER 1,000 mg 120 mL/hr dextrose (concentrated solution) 50 % CONCENTRATED solution 1-50 g 1-50 g, intravenous, Administer over 5 Minutes, As needed, low blood sugar, blood glucose less than 70 mg/dL, Starting on Wed05/29/18 at 0824, Dose as determined by GlucoStabilizer dka order, Indications: HypoglycemiaIndications:Hypog lycemia dextrose (concentrated solution) 50 % CONCENTRATED solution 25 g 25 g, intravenous, Administer over 2 Minutes, Every 15 min PRN, low blood sugar, blood glucose less than 50 mg/dL AND decreased level of consciousness., Starting on Wed05/30/18 at 0811, After treatment for hypoglycemia, recheck BG followed by treatment every 15 minutes until the BG is greater than 100 mg/dL. Then check BG 1 hour post treatment. If BG is less than 100 mg/dL, repeat Q15 minute BG checks and treatment. Call MD for each episode of hypoglycemia., Indications: hypoglycemic disorderIndications:hypoglyce lakes[place] disorder dextrose (D10W) 10% bolus 250 mL 250 mL, intravenous, at 1,000 mL/hr, Administer over 15 Minutes, Every 15 min PRN, blood glucose less than 70 mg/dL and UNABLE to swallow/take PO glucose/juice., Starting on Wed05/30/18 at 0811, After treatment for hypoglycemia, recheck BG followed by treatment every 15 minutes until the BG is greater than 100 mg/dL. Then check BG 1 hour post treatment. If BG is less than 100 mg/dL, repeat Q15 minute BG checks and treatment. Call MD for each episode of hypoglycemia., Indications: hypoglycemic disorderIndications:hypoglyce lakes[place]ia disorder dextrose 5% infusion 100 mL/hr, intravenous, Continuous, Starting on Nurys 05/26/18 at 1812, Start when blood glucose less than 250 mg/dL and decrease rate of previous IV fluid infusion order. Notify MD when blood glucose less than 250 mg/dL and adjusting IV fluids. Rate/Dose Verify 05/28/2018 4:00 PM BROACH SETTER 100 mL/hr 100 mL/hr New Bag 05/28/2018 3:19 PM BROACH SETTER 100 mL/hr 100 mL/hr Rate/Dose Verify 05/28/2018 12:00 PM BROACH SETTER 100 mL/hr 100 mL /hr dextrose 5% infusion 75 mL/hr, intravenous, Continuous, Starting on Wed05/29/18 at 0930, For 1 day 2 hours, Start when glucose is less than 250 Rate/Dose Change 05/30/2018 8:10 AM BROACH SETTER 75 mL/hr 75 mL/hr New Bag 05/30/2018 1:02 AM BROACH SETTER 125 mL/hr 125 mL/hr Rate/Dose Verify 05/29/2018 8:05 PM BROACH SETTER 125 mL/hr 125 mL/ hr dextrose gel in packet 15 g 15 g, oral, Every 15 min PRN, low blood sugar, blood glucose less than 70 mg/dL, Starting on Wed05/30/18 at 0811, If patient is alert and able to [...] Daily (for enoxaparin), First dose on Nurys 05/26/18 at 2100, Indications: Deep Vein Thrombosis PreventionIndications:Deep Vein Thrombosis Prevention Given 06/01/2018 9:32 PM BROACH SETTER 40 mg Left Lower Abdomen Given 05/31/2018 9:57 PM BROACH SETTER 40 mg Ri ght Upper Abdomen Given 05/29/2018 8:00 PM BROACH SETTER 40 mg Le ft Lower Abdomen ergocalciferol (VITAMIN D) capsule 50,000 Units 50,000 Units, oral, Weekly, First dose on 05/29/18 at 0900, For 8 doses glucagon injection 1 mg 1 mg, intramuscular, Administer over 1 Minutes, Every 30 min PRN, low blood sugar, blood glucose less than 70 mg/dL AND no IV access AND unable to take PO glucose/jiuce., Starting on 05/30/18 at 0811, After Glucagon is administered, position patient on [...] MD for each episode of hypoglycemia., Indications: HypoglycemiaIndications:Hypogly cemia hydrALAZINE (APRESOLINE) injection 10 mg 10 mg, intravenous, Administer over 2 Minutes, Every 4 hours PRN, high blood pressure, for sbp over 160 and/or dbp over 100, Starting on 05/30/18 at 1637, Indications: hypertensionIndications:hyperte nsion Given 06/01/2018 9:31 AM BROACH SETTER 10 mg insulin glargine (LANTUS,BASAGLAR) pen injection 10 Units 10 Units, subcutaneous, Nightly, First dose on 05/28/18 at 0400, Do not mix with other insulins Given 05/28/2018 3:20 AM BROACH SETTER 10 Units Left Upper Arm insulin glargine (LANTUS,BASAGLAR) pen injection 10 Units 10 Units, subcutaneous, Nightly, First dose on 05/28/18 at 2100, Do not mix with other insulins, Indications: Diabetes MellitusIndications:Diabetes Mellitus Given 05/28/2018 9:12 PM BROACH SETTER 10 Units Right Upper Arm insulin glargine (LANTUS,BASAGLAR) pen injection 12 Units 12 Units, subcutaneous, Every morning, First dose on Wed05/30/18 at 0900, Do not mix with other insulins Given 06/02/2018 8:41 AM BROACH SETTER 12 Units Left Upper Arm Given 06/01/2018 7:49 AM BROACH SETTER 12 Units Ri ght Upper Arm Given 05/31/2018 8:05 AM BROACH SETTER 12 Units Ri ght Upper Arm insulin lispro (HumaLOG) pen injection 1-3 Units 1-3 Units, subcutaneous, Nightly, First dose on Wed05/30/18 at 2100, Blood Sugar Mid Dose PM - PO patients 175 or less No insulin 176 - 200 1 unit 201 - 250 2 units 251 - 299 3 units Greater than 299 Call MD for hyperglycemia management instructions Do NOT hold for NPO status., Indications: Diabetes MellitusIndications:Diabetes Mellitus Given 05/31/2018 10:00 PM BROACH SETTER 2 Units Left Upper Arm insulin lispro (HumaLOG) pen injection 1-5 Units 1-5 Units, subcutaneous, 3 times daily with meals, First dose on Wed05/30/18 at 0845, Blood Sugar Mid Dose meal time - PO patients 139 or less No insulin 140 - 175 1 unit 176 - 200 2 unit 201 - 250 3 units 251 - 299 5 units Greater than 299 Call MD for hyperglycemia management instructions Do NOT hold for NPO status., Indications: Diabetes MellitusIndications:Diabetes Mellitus Given 06/02/2018 8:42 AM BROACH SETTER 2 Units Left Upper Arm Given 06/01/2018 7:48 AM BROACH SETTER 2 Units Ri ght Upper Arm Given 05/31/2018 12:32 PM BROACH SETTER 2 Units R ight Upper Arm insulin lispro (HumaLOG) pen injection 2 Units 2 Units, subcutaneous, Once, On Wed05/30/18 at 1815, For 1 dose, Administer pre-meal doses when pts food tray arrives in room. Do not administer pre-meal doses to NPO patients. Given 05/30/2018 5:48 PM BROACH SETTER 2 Units Left Upper Arm insulin lispro (HumaLOG) pen injection 3 Units 3 Units, subcutaneous, 3 times daily with meals, First dose on Wed05/30/18 at 1200, Administer pre-meal doses when pts food tray arrives in room. Do not administer pre-meal doses to NPO patients. Given 06/02/2018 8:41 AM BROACH SETTER 3 Units Left Upper Abdomen Given 06/01/2018 7:49 AM BROACH SETTER 3 Units Ri ght Upper Arm Given 05/31/2018 12:34 PM BROACH SETTER 3 Units R ight Upper Arm insulin lispro (HumaLOG) pen injection 3 Units 3 Units, subcutaneous, Once, On Wed05/30/18 at 1000, For 1 dose, Administer pre-meal doses when pts food tray arrives in room. Do not administer pre-meal doses to NPO patients. Given 05/30/2018 9:44 AM BROACH SETTER 3 Units Left Upper Arm insulin regular (HumuLIN R, NovoLIN R) 100 Units in sodium chloride 0.9% 100 mL (1 Units/mL) infusion 0.1 Units/kg/hr ? 59 kg (5.9 mL/hr), 1 units/mL, intravenous, Titrated, Starting on Wed05/26/18 at 181, Until Wed05/26/18 at 2024, Indications: Diabetes Mellitus, ED PROTOCOL - For ED use only. Do NOT administer insulin bolus or infusion until K greater than 3.5 mg/dL. Initial rate: 5.9 units/hour. (0.1 units/kg/hr- max 10 units per hour) Blood glucose greater than 250 mg/dL: BG INCREASING: increase insulin drip rate by 50% BG DECREASING: continue insulin drip at current rate. Once blood glucose 250 mg/dL or less: Add D5W and decrease other IV fluid per IV fluid orders. Call MD. Blood glucose 151-250 mg/dL: BG INCREASING: continue insulin drip at current rate. BG DECREASING by less than 75 mg/dL/hr: continue insulin drip at current rate. BG DECREASING by 75 mg/dL/hr or more: decrease insulin drip rate by 50% Blood glucose 100 - 150 mg/dL: Decrease insulin drip rate by 50% and call MD. (MD may want to increase D5W to prevent hypoglycemia rather than further decrease insulin drip rate) Blood glucose less than 100 mg/dL: Hold insulin infusion and notify MD. Follow hypoglycemia orders if blood glucose is less than 70 mg/dL Once BG greater than 100 mg/dL, restart insulin drip with rate reduced by 50%. When new IV tubing is used, completely prime the tubing. Once primed, waste an additional 20 ml of insulin infusion using the IV pump prior to connecting to patient., RoutineIndications:Diabe celia Mellitus New Bag 05/26/2018 6:33 PM BROACH SETTER 0.1 Units/kg/hr 5.9 mL/hr insulin regular (HumuLIN R, NovoLIN R) 100 Units in sodium chloride 0.9% 100 mL (1 Units/mL) infusion 0-30 Units/hr (0-30 mL/hr), 1 units/mL, intravenous, Titrated, Starting on Nurys 05/26/18 at 2100, Until 05/28/18 at 0832, Indications: Hyperglycemia, Desired Range (mg/dL): 130-180 general patients, Multiplier: 0.02, Adjust rate per GlucoStabilizer program for dka order When new IV tubing is used, completely prime the tubing. Once primed, waste an additional 20 ml of insulin infusion using the IV pump prior to connecting to patient., RoutineIndications:Hyper glycemia Rate/Dose Change 05/28/2018 12:20 AM [facility] 1.1 Units/hr 1.1 mL/hr Rate/Dose Change 05/27/2018 11:30 PM [facility] 2.2 Units/hr 2.2 mL/hr Rate/Dose Change 05/27/2018 10:20 PM [facility] 3.6 Units/hr 3.6 mL/hr insulin regular (HumuLIN R, NovoLIN R) 100 Units in sodium chloride 0.9% 100 mL (1 Units/mL) infusion 0-30 Units/hr (0-30 mL/hr), 1 units/mL, intravenous, Titrated, Starting on 05/28/18 at 0915, Until 05/28/18 at 1932, Indications: Hyperglycemia, Desired Range (mg/dL): 130-180 general patients, Multiplier: 0.01, Adjust rate per GlucoStabilizer program for dka order When new IV tubing is used, completely prime the tubing. Once primed, waste an additional 20 ml of insulin infusion using the IV pump prior to connecting to patient., RoutineIndications:Hyperglyc emia Rate/Dose Change 05/28/2018 4:15 PM [facility] 0.3 Units/hr 0.3 mL/hr Rate/Dose Change 05/28/2018 3:22 PM [facility] 0.6 Units/hr 0.6 m L/hr Rate/Dose Change 05/28/2018 2:25 PM [facility] 1.3 Units/hr 1.3 m L/hr insulin regular (HumuLIN R, NovoLIN R) 100 Units in sodium chloride 0.9% 100 mL (1 Units/mL) infusion 0-30 Units/hr (0-30 mL/hr), 1 units/mL, intravenous, Titrated, Starting on Wed05/29/18 at 0900, Until Wed05/30/18 at 1100, Indications: Hyperglycemia, Desired Range (mg/dL): 130-180 general patients, Multiplier: 0.01, Adjust rate per GlucoStabilizer program for dka order When new IV tubing is used, completely prime the tubing. Once primed, waste an additional 20 ml of insulin infusion using the IV pump prior to connecting to patient., RoutineIndications:Hyperglyc emia Rate/Dose Change 05/30/2018 5:29 AM [facility] 0.3 Units/hr 0.3 mL/hr Rate/Dose Change 05/30/2018 4:06 AM [facility] 1.2 Units/hr 1.2 m L/hr Rate/Dose Change 05/30/2018 3:06 AM [facility] 2 Units/hr 2 mL/hr insulin regular (HumuLIN R, NovoLIN R) injection 6 Units 6 Units (rounded from 5.9 Units = 0.1 Units/kg ? 59 kg), intravenous, Once, On Nurys 05/26/18 at 1812, For 1 dose, Do NOT administer insulin bolus or infusion until K greater than 3.5 mg/dL., Indications: diabetic ketoacidosisIndications:diabetic ketoacidosis Given 05/26/2018 6:30 PM [facility] 6 Units ioversol (OPTIRAY 350) syringe syringe 125 mL 125 mL, intravenous, Once in imaging, contrast, Starting on Wed05/29/18 at 1640, For 1 dose Given 05/29/2018 4:54 PM [facility] 125 mL ketorolac (TORADOL) injection 15 mg 15 mg, intravenous, Once, On 05/30/18 at 1715, For 1 dose, For Adult IV push, administer over 15 seconds Given 05/30/2018 4:54 PM [facility] 15 mg Lactated Ringer's (LR) infusion 100 mL/hr, intravenous, Continuous, Starting on 05/28/18 at 0315 New Bag 05/30/2018 2:14 AM [facility] 100 mL/hr 100 mL/hr Rate/Dose Verify 05/29/2018 8:05 PM [facility] 100 mL/hr 100 mL/ hr New Bag 05/29/2018 6:46 PM [facility] 100 mL/hr 100 mL/hr lidocaine PF (XYLOCAINE) 10 mg/mL (1 %) preservative free injection 10-20 mg 10-20 mg (1-2 mL), subcutaneous, Once, On 05/29/18 at 1645, For 1 dose, Administer to insertion site prior to procedure of local anesthesia. Administer volume needed to infiltrate site., Indications: Administration of Local AnesthesiaIndications:Administra tion of Local Anesthesia Given 05/29/2018 3:35 PM [facility] 20 mg Right Upper Arm LORazepam (ATIVAN) tablet 0.25 mg 0.25 mg, oral, Nightly, First dose on Wed06/01/18 at 2100 Given 06/01/2018 9:33 PM [facility] 0.25 mg metoclopramide (REGLAN) injection 10 mg 10 mg, intravenous, Administer over 1 Minutes, Every 8 hours PRN, nausea, Starting on Nurys 05/26/18 at 2016 Given 05/27/2018 5:33 AM [facility] 10 mg Given 05/26/2018 10:47 PM [facility] 10 mg metoclopramide (REGLAN) injection 10 mg 10 mg, intravenous, Administer over 1 Minutes, Once, On Nurys 05/26/18 at 1848, For 1 dose Given 05/26/2018 7:07 PM [facility] 10 mg metoclopramide (REGLAN) injection 10 mg 10 mg, intravenous, Administer over 1 Minutes, Every 8 hours scheduled, First dose (after last modification) on 05/28/18 at 1400 Given 05/28/2018 2:26 PM [facility] 10 mg metoclopramide (REGLAN) injection 10 mg 10 mg, intravenous, Administer over 1 Minutes, Every 6 hours, First dose on Wed06/01/18 at 1600 Given 06/02/2018 9:33 AM [facility] 10 mg Given 06/02/2018 4:41 AM [facility] 10 mg Given 06/01/2018 9:36 PM [facility] 10 mg metoclopramide (REGLAN) injection 5 mg 5 mg, intravenous, Administer over 1 Minutes, Every 8 hours scheduled, First dose on Wed05/27/18 at 2200 Given 05/27/2018 9:03 PM [facility] 5 mg metoprolol (LOPRESSOR) injection 5 mg 5 mg, intravenous, Administer over 1 Minutes, Once as needed, other, for hr over 140, Starting on 05/29/18 at 0926, For 1 dose Given 05/29/2018 9:28 AM [facility] 5 mg metoprolol (LOPRESSOR) injection 5 mg 5 mg, intravenous, Administer over 1 Minutes, 2 times daily, First dose on Wed06/01/18 at 1145 Given 06/02/2018 8: 43 AM [facility] 5 mg Given 06/01/2018 9:37 PM [facility] 5 mg Given 06/01/2018 11:15 AM [facility] 5 mg metoprolol (LOPRESSOR) tablet 50 mg 50 mg, oral, Once, On Wed05/31/18 at 1100, For 1 dose Given 05/31/2018 10:40 AM [facility] 50 mg ondansetron (ZOFRAN) injection 4 mg 4 mg, intravenous, Administer over 2 Minutes, Every 6 hours PRN, nausea, vomiting, Starting on Nurys 05/26/18 at 2313 Given 06/01/2018 9:37 AM [facility] 4 mg Given 05/27/2018 4:49 AM [facility] 4 mg potassium chloride (KAYCIEL) 1.3 mEq/mL oral liquid 40 mEq 40 mEq, oral, Once, On Wed05/27/18 at 2000, For 1 dose, Recommend to dilute each 15 mL with at least 6 ounces of water or juice prior to administration. Given 05/27/2018 9:02 PM [facility] 40 mEq potassium chloride 40 mEq in sodium chloride 0.9% 500 mL IVPB 40 mEq, intravenous, at 130 mL/hr, Administer over 4 Hours, Once, On 05/28/18 at 1700, For 1 dose, Indications: hypokalemiaIndications:hypokalemia New Bag 05/28/2018 6:52 PM [facility] 40 mEq 130 mL/hr potassium chloride 40 mEq in sodium chloride 0.9% 500 mL IVPB 40 mEq, intravenous, at 130 mL/hr, Administer over 4 Hours, Once, On 05/30/18 at 0245, For 1 dose, Indications: hypokalemiaIndications:hypokalemia New Bag 05/30/2018 2:22 AM [facility] 40 mEq 130 mL/hr potassium chloride ER (KLOR-CON,K-DUR) extended release tablet 40 mEq 40 mEq, oral, Once, On Wed06/01/18 at 0700, For 1 dose, Do not crush, chew, cut, dissolve, open or otherwise manipulate tablet/capsule. Given 06/01/2018 6:52 AM [facility] 40 mEq potassium phosphates 30 mmol in sodium chloride 0.9% 500 mL IVPB 30 mmol, intravenous, at 85 mL/hr, Administer over 6 Hours, Once, On Wed05/28/18 at 0330, For 1 dose, For PERIPHERAL line administration New Bag 05/28/2018 2:49 AM [facility] 30 mmo l 85 mL/hr potassium, sodium phosphates (PHOS-NAK) 280-160-250 mg packet 1 packet 1 packet, oral, 4 times daily before meals & nightly, First dose on Wed05/27/18 at 1800, For 4 doses, Each packet contains 250 mg elemental phosphorus. Given 05/27/2018 9:02 PM [facility] 1 packet Given 05/27/2018 6:47 PM [facility] 1 packet prochlorperazine (COMPAZINE) injection 10 mg 10 mg, intravenous, Administer over 2 Minutes, Every 6 hours, First dose on Wed05/29/18 at 0900 Given 05/30/2018 2:12 AM [facility] 10 mg Given 05/29/2018 8:00 PM [facility] 10 mg Given 05/29/2018 2:37 PM [facility] 10 mg prochlorperazine (COMPAZINE) injection 10 mg 10 mg, intravenous, Administer over 2 Minutes, 4 times daily before meals & nightly, First dose (after last modification) on Wed05/30/18 at 0900 Given 05/30/2018 12:10 PM [facility] 10 mg Given 05/30/2018 8:44 AM [facility] 10 mg prochlorperazine (COMPAZINE) injection 5 mg 5 mg, intravenous, Administer over 2 Minutes, 4 times daily before meals & nightly, First dose (after last modification) on Wed05/30/18 at 1800 Given 06/01/2018 10:46 AM [facility] 5 mg Given 06/01/2018 6:52 AM [facility] 5 mg Given 05/31/2018 9:58 PM [facility] 5 mg sertraline (ZOLOFT) tablet 50 mg 50 mg, oral, Daily, First dose on Wed05/27/18 at 1800 Given 06/02/2018 8:41 AM [facility] 50 mg Given 06/01/2018 7:48 AM [facility] 50 mg Given 05/31/2018 8:15 AM [facility] 50 mg sodium chloride 0.45% infusion 150 mL/hr, intravenous, Continuous, Starting on Nurys 05/26/18 at 1812, Decrease rate to 50 mL/hr when blood glucose less than 250 mg/dL. New Bag 05/26/2018 8:06 PM [facility] 150 mL/hr 150 mL/hr sodium chloride 0.9% bolus 1,000 mL 1,000 mL, intravenous, at 500 mL/hr, Administer over 2 Hours, Once, On Nurys 05/26/18 at 1812, For 1 dose New Bag 05/26/2018 6:24 PM [facility] 1,000 mL 500 mL/hr sodium chloride 0.9% bolus 1,000 mL 1,000 mL, intravenous, at 1,000 mL/hr, Administer over 1 Hours, Once, On Wed05/27/18 at 0000, For 1 dose New Bag 05/26/2018 11:30 PM [facility] 1,000 mL 1000 mL/hr sodium chloride 0.9% bolus 1,000 mL 1,000 mL, intravenous, at 500 mL/hr, Administer over 2 Hours, Once, On Wed05/27/18 at 0700, For 1 dose New Bag 05/27/2018 6:53 AM [facility] 1,000 mL 500 mL/hr Rate/Dose Change 05/27/2018 6:27 AM [facility] 1,000 mL 500 mL/ hr sodium chloride 0.9% bolus 1,000 mL 1,000 mL, intravenous, at 1,000 mL/hr, Administer over 1 Hours, Once, On Wed05/29/18 at 1630, For 1 dose New Bag 05/29/2018 4:30 PM [facility] 1,000 mL 1000 mL/hr sodium chloride 0.9% flush 5-10 mL 5-10 mL, intra-catheter, Every 12 hours scheduled, First dose on Wed05/29/18 at 2100, Flush volume based on line type, size, and protocol. Given 06/02/2018 8:42 AM [facility] 10 mL Given 06/01/2018 9:37 PM [facility] 10 mL Given 06/01/2018 7:48 AM [facility] 10 mL sodium chloride 0.9% flush 5-20 mL 5-20 mL, intra-catheter, As needed, line care, with each use, Starting on Wed05/29/18 at 1605, Flush volume based on line type, size, and protocol. sodium chloride 0.9% infusion 100 mL/hr, intravenous, Continuous, Starting on Wed05/27/18 at 0000, Until current bag hanging is complete. Rate/Dose Verify 05/28/2018 6:51 AM [facility] 100 mL/hr 100 mL/hr New Bag 05/27/2018 7:06 PM [facility] 100 mL/hr 100 mL/hr New Bag 05/27/2018 9:00 AM [facility] 100 mL/hr 100 mL/hr sodium chloride 0.9% infusion 100 mL/hr, intravenous, Continuous, Starting on Wed05/31/18 at 1100 New Bag 06/01/2018 4:45 PM [facility] 100 mL/hr 100 mL/hr New Bag 06/01/2018 7:44 AM [facility] 100 mL/hr 100 mL/hr Rate/Dose Verify 06/01/2018 4:00 AM [facility] 100 mL/hr 100 mL/ hr documented in this encounter Discontinued Medications Medication Sig Discontinue Reason Start Date End Da te ondansetron ODT (ZOFRAN-ODT) 4 mg disintegrating tablet Take 4 mg by mouth 3 (three) times a day as needed for vomiting. Other 07/22/2017 05/26/2018 documented as of this encounter Active and Recently Administered Medications Times are shown in [facility]. Scheduled Medication Order 05/31/2018 06/01/2018 06/02/2018 calcium carbonate (TUMS) chewable tablet 500 mg (CANCELED) 500 mg (200 mg of elemental calcium), oral, 3 times daily, First dose on Wed06/01/18 at 1000 0935 (Given - Provider: Neena Collins, MARY)1545 (Not Given - Provider: Neena Collins RN - Reason: Patient/family refused) cefTRIAXone (ROCEPHIN) 1000 mg/10 mL in sterile water (premix) 1,000 mg (COMPLETED) 1,000 mg, intravenous, at 120 mL/hr, Administer over 5 Minutes, Every 24 hours scheduled, First dose (after last reorder) on Wed05/27/18 at 1215, For 5 doses, Indications: Urinary Tract/Genitourinary Infection 0819 (New Bag - Provider: Audelia Ceballos RN) cefTRIAXone (ROCEPHIN) 1000 mg/10 mL in sterile water (premix) 1,000 mg 1,000 mg, intravenous, at 120 mL/hr, Administer over 5 Minutes, Every 24 hours scheduled, First dose on Wed06/01/18 at 1515, Indications: Urinary Tract/Genitourinary Infection 1550 (New Bag - Provider: Neena Collins, MARY) 0846 (New Bag - Provider: Ana Parra, RN) enoxaparin (LOVENOX) syringe 40 mg 40 mg, subcutaneous, Daily (for enoxaparin), First dose on Nurys 05/26/18 at 2100, Indications: Deep Vein Thrombosis Prevention 2156 (Given - Provider: Chey Perez RN) 2131 (Given - Provider: Tavo Bucio, MARY) ergocalciferol (VITAMIN D) capsule 50,000 Units 50,000 Units, oral, Weekly, First dose on Wed05/29/18 at 0900, For 8 doses insulin glargine (LANTUS,BASAGLAR) pen injection 12 Units 12 Units, subcutaneous, Every morning, First dose on Wed05/30/18 at 0900, Do not mix with other insulins 0805 (Given - Provider: Audelia Ceballos RN) 0749 (Given - Provider: Neena Collins RN) 0841 (Given - Provider: Ana Parra, MARY) insulin lispro (HumaLOG) pen injection 1-3 Units 1-3 Units, subcutaneous, Nightly, First dose on Wed05/30/18 at 2100, Blood Sugar Mid Dose PM - PO patients 175 or less No insulin 176 - 200 1 unit 201 - 250 2 units 251 - 299 3 units Greater than 299 Call MD for hyperglycemia management instructions Do NOT hold for NPO status., Indications: Diabetes Mellitus 2199 (Given - Provider: Chey Perez RN) 2125 (Not Given - Provider: Tavo Bucio, MARY - Reason: Order parameters not met) insulin lispro (HumaLOG) pen injection 1-5 Units 1-5 Units, subcutaneous, 3 times daily with meals, First dose on Wed05/30/18 at 0845, Blood Sugar Mid Dose meal time - PO patients 139 or less No insulin 140 - 175 1 unit 176 - 200 2 unit 201 - 250 3 units 251 - 299 5 units Greater than 299 Call MD for hyperglycemia management instructions Do NOT hold for NPO status., Indications: Diabetes Mellitus 0803 (Given - Provider: Audelia Ceballos RN)1232 (Given - Provider: Audelia Ceballos RN)1712 (Not Given - Provider: Audelia Ceballos RN - Reason: Order parameters not met) 0748 (Given - Provider: Neena Collins RN)1059 (Not Given - Provider: Neena Collins RN - Reason: Other - Comment: pt throwing up not eating)1644 (Not Given - Provider: Neena Collins RN - Reason: Other - Comment: pt not eating) 0842 (Given - Provider: Ana Parra, MARY)1328 (Not Given - Provider: Amanda Smith, MARY - Reason: Patient/family refused - Comment: did not want to eat or take insulin until she got home) insulin lispro (HumaLOG) pen injection 3 Units 3 Units, subcutaneous, 3 times daily with meals, First dose on Wed05/30/18 at 1200, Administer pre-meal doses when pts food tray arrives in room. Do not administer pre-meal doses to NPO patients. 0804 (Given - Provider: Audelia Ceballos RN)1234 (Given - Provider: Audelia Ceballos RN)1849 (Not Given - Provider: Audelia Ceballos RN - Reason: Order parameters not met) 0749 (Given - Provider: Neena Collins RN)1100 (Not Given - Provider: Neena Collins RN - Reason: Other - Comment: pt throwing up not eating)1644 (Not Given - Provider: Neena Collins RN - Reason: Other - Comment: pt not eating) 0841 (Given - Provider: Ana Parra RN)1328 (Not Given - Provider: Amanda Smith, MARY - Reason: Patient/family refused) LORazepam (ATIVAN) tablet 0.25 mg 0.25 mg, oral, Nightly, First dose on Wed06/01/18 at 2100 2133 (Given - Provider: Tavo Bucio RN) metoclopramide (REGLAN) injection 10 mg 10 mg, intravenous, Administer over 1 Minutes, Every 6 hours, First dose on Wed06/01/18 at 1600 1549 (Given - Provider: Neena Collins RN)2136 (Given - Provider: Tavo Bucio RN) 0441 (Given - Provider: Tavo Bucio RN)0933 (Given - Provider: Ana Parra, MARY) metoprolol (LOPRESSOR) injection 5 mg 5 mg, intravenous, Administer over 1 Minutes, 2 times daily, First dose on Wed06/01/18 at 1145 1115 (Given - Provider: Karen Martinez RN)2137 (Given - Provider: Tavo Bucio RN) 0843 (Given - Provider: Ana Parra RN) metoprolol (LOPRESSOR) tablet 50 mg (COMPLETED) 50 mg, oral, Once, On Wed05/31/18 at 1100, For 1 dose 1040 (Given - Provider: Audelia Ceballos RN) potassium chloride ER (KLOR-CON,K-DUR) extended release tablet 40 mEq (COMPLETED) 40 mEq, oral, Once, On Wed06/01/18 at 0700, For 1 dose, Do not crush, chew, cut, dissolve, open or otherwise manipulate tablet/capsule. 0652 (Given - Provider: Chey Perez RN) prochlorperazine (COMPAZINE) injection 5 mg (CANCELED) 5 mg, intravenous, Administer over 2 Minutes, 4 times daily before meals & nightly, First dose (after last modification) on Wed05/30/18 at 1800 0803 (Given - Provider: Audelia Ceballos RN)1234 (Given - Provider: Audelia Ceballos RN)1846 (Not Given - Provider: Audelia Ceballos RN - Reason: Patient/family refused)2158 (Given - Provider: Chey Perez, MARY) 0652 (Given - Provider: Chey Perez, MARY)1046 (Given - Provider: Neena Collins RN) sertraline (ZOLOFT) tablet 50 mg 50 mg, oral, Daily, First dose on Wed05/27/18 at 1800 0815 (Given - Provider: Audelia Ceballos RN) 0748 (Given - Provider: Neena Collins, MARY) 0841 (Given - Provider: Ana Parra, MARY) sodium chloride 0.9% flush 5-10 mL 5-10 mL, intra-catheter, Every 12 hours scheduled, First dose on Wed05/29/18 at 2100, Flush volume based on line type, size, and protocol. 0815 (Given - Provider: Audelia Ceballos RN)2200 (Given - Provider: Chey Perez, MARY) 0748 (Given - Provider: Neena Collins RN)2137 (Given - Provider: Tavo Bucio RN) 0842 (Given - Provider: Ana Parra RN) Continuous Medication Order 05/31/2018 06/01/2018 06/02/2018 sodium chloride 0.9% infusion 100 mL/hr, intravenous, Continuous, Starting on Wed05/31/18 at 1100 1041 (New Bag - Provider: Audelia Ceballos RN)2000 (Rate/Dose Verify - Provider: hCey Perez RN)2108 (New Bag - Provider: Chey Perez RN) 0400 (Rate/Dose Verify - Provider: Chey Perez RN)0744 (New Bag - Provider: Neena Collins, MARY)1645 (New Bag - Provider: Neena Collins RN) PRN Medication Order 05/31/2018 06/01/2018 06/02/2018 acetaminophen (TYLENOL) suppository 650 mg 650 mg, rectal, Every 4 hours PRN, fever, Starting on Wed05/30/18 at 1434 acetaminophen (TYLENOL) tablet 650 mg 650 mg, oral, Every 4 hours PRN, 1st line for pain, Starting on Wed05/30/18 at 1433 dextrose (concentrated solution) 50 % CONCENTRATED solution 1-50 g 1-50 g, intravenous, Administer over 5 Minutes, As needed, low blood sugar, blood glucose less than 70 mg/dL, Starting on Wed05/29/18 at 0824, Dose as determined by GlucoStabilizer dka order, Indications: Hypoglycemia dextrose (concentrated solution) 50 % CONCENTRATED solution 25 g(Linked Group 1) 25 g, intravenous, Administer over 2 Minutes, Every 15 min PRN, low blood sugar, blood glucose less than 50 mg/dL AND decreased level of consciousness., Starting on Wed05/30/18 at 0811, After treatment for hypoglycemia, recheck BG followed by treatment every 15 minutes until the BG is greater than 100 mg/dL. Then check BG 1 hour post treatment. If BG is less than 100 mg/dL, repeat Q15 minute BG checks and treatment. Call MD for each episode of hypoglycemia., Indications: hypoglycemic disorder dextrose (D10W) 10% bolus 250 mL(Linked Group 1) 250 mL, intravenous, at 1,000 mL/hr, Administer over 15 Minutes, Every 15 min PRN, blood glucose less than 70 mg/dL and UNABLE to swallow/take PO glucose/juice., Starting on Wed05/30/18 at 0811, After treatment for hypoglycemia, recheck BG followed [...] glucose less than 70 mg/dL, Starting on Wed05/30/18 at 0811, If patient is alert and able to [...] unable to take PO glucose/jiuce., Starting on Wed05/30/18 at 0811, After Glucagon is administered, position patient on [...] for each episode of hypoglycemia., Indications: Hypoglycemia hydrALAZINE (APRESOLINE) injection 10 mg 10 mg, intravenous, Administer over 2 Minutes, Every 4 hours PRN, high blood pressure, for sbp over 160 and/or dbp over 100, Starting on Wed05/30/18 at 1637, Indications: hypertension 0931 (Given - Provider: Neena Collins, RN) ondansetron (ZOFRAN) injection 4 mg 4 mg, intravenous, Administer over 2 Minutes, Every 6 hours PRN, nausea, vomiting, Starting on Nurys 05/26/18 at 2313 0937 (Given - Provider: Neena Collins, RN) sodium chloride 0.9% flush 5-20 mL 5-20 mL, intra-catheter, As needed, line care, with each use, Starting on [place] 05/29/18 at 1605, Flush volume based on line type, size, and protocol. Linked Groups Order Group 1: dextrose gel in packet 15 gJump to med 15 g, oral, Every 15 min PRN, low blood sugar, blood glucose less than 70 mg/dL, Starting on Wed05/30/18 at 0811, If patient is alert and able to [...] UNABLE to swallow/take PO glucose/juice., Starting on Wed05/30/18 at 0811, After treatment for hypoglycemia, recheck BG followed by treatment every 15 minutes until the BG is greater than 100 mg/dL. Then check BG 1 hour post treatment. If BG is less than 100 mg/dL, repeat Q15 minute BG checks and treatment. Call MD for each episode of hypoglycemia., Indications: hypoglycemic disorder Or dextrose (concentrated solution) 50 % CONCENTRATED solution 25 gJump to med 25 g, intravenous, Administer over 2 Minutes, Every 15 min PRN, low blood sugar, blood glucose less than 50 mg/dL AND decreased level of consciousness., Starting on Wed05/30/18 at 0811, After treatment for hypoglycemia, recheck BG followed [...] Last Ordered Date First Ordered Date metoprolol (LOPRESSOR) tablet 50 mg 1 06/01 acetaminophen (TYLENOL) suppository 650 mg 1 05/30/2018 acetaminophen (TYLENOL) tablet 650 mg 1 dextrose (concentrated solut ion) 50 % CONCENTRATED solution 25 g 4 05/30/2018 05/26/2018 dextrose (D10W) 10% bolus 250 mL 4 05/30/19 19 05/26/2018 dextrose gel in packet 15 g 4 05/30/2018 05/26/2018 glucagon injection 1 mg 4 05/30/201805/04 potassium, sodium phosphates (PHOS-NAK) 280-160-250 mg packet 1 packet 2 05/30/2018 9 dextrose (concentrated solut ion) 50 % CONCENTRATED solution 1-50 g 3 05/29/2018 05/26/2018 insulin regular bolus from bag 1-10 Units 3 05/29/2018 05/26/2018 metoprolol (LOPRESSOR) 5 mg/ 5 mL injection - ADS Override Pull 1 05/29/2018 sodium chloride 0.9% flush 5-20 mL 1 2018 ergocalciferol (VITAMIN D) c apsule 50,000 Units 1 05/28/2018 insulin glargine (LANTUS,BAS AGLAR) pen injection 10 Units 1 05/28/2018 insulin lispro (HumaLOG) pen injection 1-2 Units 1 05/28/2018 insulin lispro (HumaLOG) pen injection 1-3 Units 2 05/28/2018 insulin lispro (HumaLOG) pen injection 1-5 Units 1 05/28/2018 potassium phosphates 30 mmol in sodium chloride 0.9% 500 mL IVPB 2 05/28/2018 05/27/2018 potassium chloride ER (KLOR- CON,K-DUR) extended release tablet 40 mEq 1 05/27/2018 potassium chloride 40 mEq/52 0 mL in sodium chloride 0.9% (premix) 40 mEq 1 05/26/2018 Lab Orders Without Results Count Last Ordered D ate First Ordered Date POCT GLUCOSE DEVICE 10 06/01/2018 05/26/19 19 Nursing Count Last Ordered Date First Orde red Date ASSESS 05/29/2018 MISCELLANEOUS NURSING CARE ORDER (SPECIFY) 05/26/2018 WEIGH PATIENT 1 05/26/2018 IV Count Last Ordered Date First Orde red Date INSERT PERIPHERAL IV 1 05/26/2018 Admission Count Last Ordered Date First Orde red Date ASSIGN PATIENT STATUS 05/26/2018 ADT Patient Update Count Last Ordered Date Firs t Ordered Date ED IP DECISION TO ADMIT 1 05/26/2018 documented in this encounter Care Teams Wellness Health Coach Relationship Specialty Start Date End Date No, Physician PCP - General 03/29/18 10/03/18 documented as of this encounter
--- OUTSIDE RECORDS SUMMARY | 2024-05-10 18:43 | XMS_ITS | Encounter Summary ---
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 Name Role Phone Unavailable Primary Care Provider Unavailabl e Encounter Details Date Type Department Care Team (Late st Contact Info) Description 03/09/2009 2:02 PM [facility] - 03/09/2009 2:18 PM [facility] Hospital Encounter [facility] Cody Aly MD [address] [facility] [address] [place] [address] Jolanta Freeman MD [address] [place] [phone] Sprain of ankle; Sprain of foot; Other overexertion and strenuous and repetitive movements or loads; Place of occurrence, public building; Other external cause of injury or poisoning Social History Tobacco Use Types Packs/Day Years Used Date Smoking Tobacco: Never Assessed Comments Unknown Sex and Gender Information Value Date Recorded Sex Assigned at Not on file Legal Sex Female 3:13 AM [facility] Gender Identity Not on file Sexual Orientation Not on file documented as of this encounter Plan of Treatment Not on file documented as of this encounter Visit Diagnoses Diagnosis Sprain of ankle Unspecified site of ankle sprain and strain Sprain of foot Sprain and strain of unspecified site of foot Other overexertion and strenuous and repetitive movements or loads Place of occurrence, public building Other external cause of injury or poisoning documented in this encounter
--- OUTSIDE RECORDS SUMMARY | 2024-05-10 18:43 | XMS_ITS | Encounter Summary ---
Author Organization [facility] Healthcare Address [address] [place] [address] Care Team Providers Care Experience Planning Strategist Name Role Phone Jolanta Freeman MD Primary Care Provider [phone] Jolanta Freeman MD Primary Care Provider [phone] Reason for Visit * Reason Comments Nausea diarrhea Encounter Details Date Type Department Care Team (Late st Contact Info) Description 12/06/2017 11:35 PM CDT - 12/09/2017 2:33 PM CDT Hospital Encounter [facility] ICU [address] [place] [address] Marylou Hastings Juletta, MD [address] [place] [address] [place] [id number] [address] Janie Cisneros MD [address] [place] [id number] Intractable vomiting with nausea, unspecified vomiting type (Primary Dx); Type 1 diabetes mellitus with hyperglycemia (CMS/HCC); Sinus tachycardia Discharge Disposition: Discharge to a critical access hospital Social History Tobacco Use Types Packs/Day Years Used Date Smoking Tobacco: Never Smokeless Tobacco: Never Comments No Sex and Gender Information Value Date Recorded Sex Assigned at Not on file Legal Sex 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 Gender Identity Not on file Sexual Orientation Not on file documented as of this encounter Last Filed Vital Signs Vital Sign Reading Time Taken Comments Blood Pressure 99/68 12/09/2017 12:30 PM CDT Pulse 105 12/09/2017 12:30 PM CDT Temperature 36.3 ??C (97.4 ??F) 12/09/2017 8:40 AM CD T Respiratory Rate 20 12/09/2017 12:30 PM CDT Oxygen Saturation 100% 12/09/2017 12:30 PM CDT Inhaled Oxygen Concentration - - Weight 53.1 kg (117 lb 1 oz) 12/07/2017 6:02 AM CDT Height 154.9 cm (5' 0.98 ) 12/07/2017 6:02 AM CD T Body Mass Index 22.13 12/07/2017 6:02 AM CDT documented in this encounter Discharge Summaries * Janie Cisneros MD - 12/09/2017 12:26 PM CDT Inpatient transfer Summary BRIEF OVERVIEW Admitting Provider: Gio Sewell MD Discharge Provider: Janie Cisneros MD Primary Care Physician at Discharge: Jolanta Freeman MD [phone] Admission Date: 12/06/2017 Discharge Date: 12/09/2017 Primary transfer Diagnosis 1. Diabetic ketoacidosis 2. Acute viral gastroenteritis-improved 3. Normocytic anemia Secondary transfer Diagnosis 1. History of diabetes type 1 2. Sinus tachycardia Transfer Disposition Patient is being transferred to [facility] for further care based on patient and her mother's request Code Status at Discharge: Full code Active Issues Requiring Follow-up 1. Currently patient is on IV fluid and IV insulin drip. Continue management as per ambulatory care coordinator in ICU at [facility]. Patient needs BMP done upon arrival at [facility]. Keep patient NPO while she is on insulin drip 2. Patient needs to follow up with blocker and polisher at [facility]. Patient may get benefitof insulin pump upon discharge. Follow-Up upon transfer 1. Foreign Exchange Position Clerk at [facility] 2. Unclaimed Property Manager at [facility] upon arrival Test Results Pending at transfer Haptoglobin, vitamin B12, folate done on 12/08/2017 DETAILS OF HOSPITAL STAY Presenting Problem/History of Present Illness 22-year-old female with past medical history of type 1 diabetes mellitus came in for nausea, vomiting, diarrhea for 1 day duration. Patient was admitted for further care. Hospital Course 1. Diabetic ketoacidosis This morning patient had serum bicarbonate 10 and anion gap 26. Patient was started on IV fluid andIV insulin drip per DKA protocol and was transferred to ICU. Patient and her mother wanted to be transferred to different hospital. Patient wanted to go to [facility] 1st but [facility] did not have any bed available. Patient and her mother states that they are agreeable to be transferred to different hospital affiliated with [facility] group. I spoke with ambulatory care coordinator at [facility] who acceptedthe patient. Patient is being transferred to [facility] for further care. Patient needs endocrinology evaluation at [facility]. Patient may get benefit of insulin pump upon discharge I will leave that decision up to blocker and polisher at [facility]. 2. Acute viral gastroenteritis Improved. Patient denies any nausea, vomiting, diarrhea. Currently patient is NPO due to underlyingDKA. 3. Sinus tachycardia Likely due to underlying volume depletion. Patient denies any chest pain, shortness of breath, palpitation. D-dimer less than 150. TSH 1.37. Patient was evaluated by Cardiology Continue with IV fluid 4. Diabetes type 1 Currently patient is in DKA. Currently patient is on insulin drip with IV fluid. Patient needs to follow up with blocker and polisher at [facility]. Patient may get benefit of insulin pump upondischarge. I will leave that decision up to blocker and polisher at [facility] 5. Normocytic anemia Likely dilutional. Today hemoglobin 11.9. No evidence of overt bleeding. Baseline hemoglobin 13-14.Patient denies any black stool, dark stool, fresh blood in stool. No evidence of iron deficiency. No evidence of hemolysis. Vitamin B12 and folic acid level-pending Operative Procedures Performed None Treatments: None Consults: None Procedures: None Radiology: None Today's Lab: Recent Results (from the past 24 hour(s)) D-dimer, quantitative Collection Time: 12/08/17 1:49 PM Result Value Ref Range D-dimer <150 (L) 150 - 230 ng/mL D-DU POCT glucose Collection Time: 12/08/17 4:19 PM Result Value Ref Range Glucose, POC, bld 202 (H) 71 - 98 mg/dL Blood gas, venous Collection Time: 12/08/17 9:19 PM Result Value Ref Range pH, Venous 7.30 (L) 7.32 - 7.43 PCO2, Venous 25 (L) 40 - 50 mmHg PO2, Venous 124 mmHg HCO3 Venous, Calculated 12 (L) 20 - 30 mmol/L BE, venous -13 mmol/L POCT glucose Collection Time: 12/08/17 10:12 PM Result Value Ref Range Glucose, POC, bld 170 (H) 71 - 98 mg/dL POCT glucose Collection Time: 12/08/17 11:01 PM Result Value Ref Range Glucose, POC, bld 214 (H) 71 - 98 mg/dL ECG 12 lead Collection Time: 12/08/17 11:01 PM Result Value Ref Range Patient age 22 years Interpretation Text SINUS TACHYCARDIABORDERLINE RIGHT AXIS DEVIATIONNONSPECIFIC T-WAVE ABNORMALITYABNORMAL RHYTHM ECGNOPREVIOUS TRACING Ventricular Rate EKG/Min 137 /min P Wave Duration 117 ms QRS-Interval (MSEC) 76 ms IN-Interval (MSEC) 131 ms QT Interval 278 ms QTc 412 ms QTC Interval ms P Crook 80 deg QRS Crook 94 deg T Crook 21 deg POCT glucose Collection Time: 12/09/17 2:16 AM Result Value Ref Range Glucose, POC, bld 195 (H) 71 - 98 mg/dL Beta-hydroxybutyrate Collection Time: 12/09/17 3:50 AM Result Value Ref Range Beta-Hydroxybutyrate 7.40 (H) 0.00 - 0.40 mmol/L Magnesium Collection Time: 12/09/17 3:50 AM Result Value Ref Range Magnesium 1.6 1.6 - 2.4 mg/dL Phosphorus Collection Time: 12/09/17 3:50 AM Result Value Ref Range Phosphorus, pl 2.3 2.3 - 4.5 mg/dL Iron profile Collection Time: 12/09/17 3:53 AM Result Value Ref Range Iron 112 35 - 145 mcg/dL UIBC 232 110 - 350 mcg/dL TIBC 344 220 - 420 mcg/dL Iron saturation 33 15 - 50 % Ferritin Collection Time: 12/09/17 3:53 AM Result Value Ref Range Ferritin 28 15 - 150 ng/mL Lactate dehydrogenase (LD) Collection Time: 12/09/17 3:53 AM Result Value Ref Range Lactate dehydrogenase (LDH) 158 100 - 250 Units/L Reticulocyte Count Collection Time: 12/09/17 3:53 AM Result Value Ref Range Retics, absolute 0.086 0.020 - 0.087 M/cumm Retics 2.0 0.4 - 2.9 % Reticulocyte Hgb 28.4 (L) 30.5 - 38.0 pg Vitamin B12 Collection Time: 12/09/17 3:53 AM Result Value Ref Range Cyanocobalamin (Vit B12) 521 180 - 920 pg/mL Folate Collection Time: 12/09/17 3:53 AM Result Value Ref Range Folic acid 7.4 >=3.1 ng/mL Direct antiglobulin test Collection Time: 12/09/17 3:53 AM Result Value Ref Range ESTER Poly Interp Negative CBC with auto differential Collection Time: 12/09/17 3:53 AM Result Value Ref Range WBC 6.9 3.8 - 9.9 K/cumm Hgb 11.9 11.9 - 15.5 g/dL Hct 35.5 (L) 35.6 - 45.5 % Plt 338 150 - 400 K/cumm MPV 8.9 (L) 9.1 - 12.3 fL RBC 4.31 3.90 - 5.20 M/cumm MCV 82.4 81.3 - 96.4 fL MCH 27.6 27.1 - 33.3 pg MCHC 33.5 32.3 - 35.7 g/dL RDW CV 13.2 11.1 - 14.9 % RDW SD 40.0 35.7 - 48.1 fL NRBC Abs 0.00 0.00 - 0.01 K/cumm Renal function panel Collection Time: 12/09/17 3:53 AM Result Value Ref Range Sodium 132 (L) 135 - 145 mmol/L Potassium, pl 4.5 3.3 - 4.9 mmol/L Chloride 96 (L) 97 - 110 mmol/L CO2 10 (L) 22 - 32 mmol/L Anion Gap 26 (H) 2 - 15 mmol/L BUN 6 (L) 8 - 25 mg/dL Creatinine 0.46 (L) 0.60 - 1.10 mg/dL Glucose 211 (H) 70 - 199 mg/dL Calcium 8.7 8.5 - 10.3 mg/dL Phosphorus, pl 2.2 (L) 2.3 - 4.5 mg/dL Albumin 3.7 3.5 - 5.0 g/dL Magnesium Collection Time: 12/09/17 3:53 AM Result Value Ref Range Magnesium 1.6 1.6 - 2.4 mg/dL Differential, auto Collection Time: 12/09/17 3:53 AM Result Value Ref Range Neutrophil absolute 3.9 1.7 - 6.5 K/cumm Immature granulocyte absolute 0.1 0.0 - 0.1 K/cumm Lymphocytes absolute 2.3 0.8 - 3.3 K/cumm Monocyte absolute 0.6 0.2 - 0.8 K/cumm Eosinophils absolute 0.0 0.0 - 0.5 K/cumm Basophils, abs 0.0 0.0 - 0.1 K/cumm Neutrophils 57.0 % Immature granulocytes 0.9 % Lymphocytes 33.7 % Monocytes 8.0 % Eosinophils 0.0 % Basophils 0.4 % eGFR Collection Time: 12/09/17 3:53 AM Result Value Ref Range GFR >60 mL/min/1.73 m2 POCT glucose Collection Time: 12/09/17 7:35 AM Result Value Ref Range Glucose, POC, bld 200 (H) 71 - 98 mg/dL POCT glucose Collection Time: 12/09/17 9:27 AM Result Value Ref Range Glucose, POC, bld 220 (H) 71 - 98 mg/dL POCT glucose Collection Time: 12/09/17 10:36 AM Result Value Ref Range Glucose, POC, bld 151 (H) 71 - 98 mg/dL POCT glucose Collection Time: 12/09/17 11:40 AM Result Value Ref Range Glucose, POC, bld 142 (H) 71 - 98 mg/dL POCT glucose Collection Time: 12/09/17 12:39 PM Result Value Ref Range Glucose, POC, bld 133 (H) 71 - 98 mg/dL Discharge Medications Your medication list START taking these medications Instructions Last Dose Given Next Dose Due dextrose 10% bolus Commonly known as: D10W Infuse 250 mL into a venous catheter every 15 (fifteen) minutes as needed (blood glucose less than 70 mg/dL and unable to swallow/take PO glucose/juice). dextrose 10% bolus Commonly known as: D10W Infuse 250 mL into a venous catheter every 4 (four) hours as needed (when tube feedings are held orinterrupted AND patient is receiving basal insulin (Lantus, Levemir, NPH)). dextrose 15 gram/32 mL gel in packet Take 32 mL (15 g total) by mouth every 15 (fifteen) minutes as needed (blood glucose less than 70 mg/dL). dextrose 5% solution Infuse 100 mL/hr into a venous catheter continuously. dextrose 50% solution Commonly known as: concentrated solution Infuse 50 mL (25 g total) into a venous catheter every 15 (fifteen) minutes as needed for low bloodsugar (blood glucose less than 50 mg/dL AND decreased level of consciousness). enoxaparin 40 mg/0.4 mL syringe Commonly known as: LOVENOX Inject 0.4 mL (40 mg total) under the skin daily. famotidine 20 mg tablet Commonly known as: PEPCID Take 1 tablet (20 mg total) by mouth daily. glucagon 1 mg kit Inject 1 mL (1 mg total) into the muscle as instructed every 30 (thirty) minutes as needed (blood glucose less than 70 mg/dL and no IV access and unable to take PO glucose/juice). ondansetron 4 mg/2 mL injection Commonly known as: ZOFRAN Infuse 2 mL (4 mg total) into a venous catheter every 6 (six) hours as needed for nausea or vomiting (if not tolerating PO). ondansetron ODT 4 mg disintegrating tablet Commonly known as: ZOFRAN-ODT Take 1 tablet (4 mg total) by mouth every 6 (six) hours as needed for nausea or vomiting. sodium chloride 0.9% parenteral solution 99 mL with insulin regular 100 unit/mL solution 100 Units Infuse 0-30 Units/hr into a venous catheter as directed. sodium chloride 0.9% with potassium chloride 20 mEq/L 20 mEq/L Infuse 125 mL/hr into a venous catheter continuously. STOP taking these medications insulin glargine 100 unit/mL injection Commonly known as: LANTUS insulin lispro 100 unit/mL injection Commonly known as: HumaLOG Where to Get Your Medications Information about where to get these medications is not yet available Ask your nurse or doctor about these medications ?? dextrose 10% bolus ?? dextrose 10% bolus ?? dextrose 15 gram/32 mL gel in packet ?? dextrose 5% solution ?? dextrose 50% solution ?? enoxaparin 40 mg/0.4 mL syringe ?? famotidine 20 mg tablet ?? glucagon 1 mg kit ?? ondansetron 4 mg/2 mL injection ?? ondansetron ODT 4 mg disintegrating tablet ?? sodium chloride 0.9% parenteral solution 99 mL with insulin regular 100 unit/mL solution 100 Units ?? sodium chloride 0.9% with potassium chloride 20 mEq/L 20 mEq/L Transfer Instruction Other Instructions Special Instructions 1. Currently patient is on IV fluid and IV insulin drip. Continue management as per ambulatory care coordinator in ICU. Patient needs BMP done upon arrival at [facility]. Keep patient NPO while she is on insulin drip 2. Patient needs to follow up with blocker and polisher at [facility]. Patient may get benefitof insulin pump upon discharge. Special Instructions Vitamin B12 and folic acid level done on 12/08/2017-pending. Patient needs close CBC monitoring. Physical Exam at transfer Discharge Condition: Stable Pulse: 105 Resp: 20 BP: 93/62 Temp: 36.3 ??C (97.4 ??F) Weight: 53.1 kg (117 lb 1 oz) Patient is lying in the bed. Patient is hemodynamically stable. Patient denies any chest pain, shortness of breath, palpitation. Patient is on room air. Patient is being transferred to [facility] per patient and her mother's request. Physical Exam: Patient seen and examined Not in acute distress HEENT: AT/NC, Neck supple Heart: S1, S2, RRR Lung: CTA bilateral Abdomen: S, NT, ND, BS+ Neuro: AAO times 3, no focal deficit Ext: No gross lower extremity edema Time spent for discharge: 40 min Janie Cisneros MD documented in this encounter Medications at Time of Discharge dextrose (D10W) 10% bolusIndications:Hy poglycemia Infuse 250 mL into a venous catheter every 15 (fifteen) minutes as needed (blood glucose less than 70 mg/dL and unable to swallow/take PO glucose/juice). 12/09/2017 01/03/20 18 dextrose (D10W) 10% bolusIndications:Hy poglycemia Infuse 250 mL into a venous catheter every 4 (four) hours as needed (when tube feedings are held or interrupted AND patient is receiving basal insulin (Lantus, Levemir, NPH)). 12/09/2017 01/03/20 18 dextrose 15 gram/32 mL gel in packetIndications:H ypoglycemia Take 32 mL (15 g total) by mouth every 15 (fifteen) minutes as needed (blood glucose less than 70 mg/dL). 12/09/2017 01/03/20 18 dextrose 5% solution Infuse 100 mL/hr into a venous catheter continuously. 50 mL 12/09/2017 01/03/20 18 dextrose 50% (concentrated solution) solutionIndications :Hypoglycemia Infuse 50 mL (25 g total) into a venous catheter every 15 (fifteen) minutes as needed for low blood sugar (blood glucose less than 50 mg/dL AND decreased level of consciousness). 50 mL 12/09/2017 01/03/20 18 enoxaparin (LOVENOX) 40 mg/0.4 mL syringeIndications: Deep Vein Thrombosis Prevention Inject 0.4 mL (40 mg total) under the skin daily. 12/09/2017 01/03/20 18 famotidine (PEPCID) 20 mg tablet Take 1 tablet (20 mg total) by mouth daily. 12/10/2017 01/03/20 18 glucagon 1 mg kitIndications:Hypo glycemia Inject 1 mL (1 mg total) into the muscle as instructed every 30 (thirty) minutes as needed (blood glucose less than 70 mg/dL and no IV access and unable to take PO glucose/juice). 12/09/2017 01/03/20 18 ondansetron (ZOFRAN) 4 mg/2 mL injectionIndication s:Nausea and Vomiting Infuse 2 mL (4 mg total) into a venous catheter every 6 (six) hours as needed for nausea or vomiting (if not tolerating PO). 20 mL 12/09/2017 01/03/20 18 ondansetron ODT (ZOFRAN-ODT) 4 mg disintegrating tabletIndications:N ausea and Vomiting Take 1 tablet (4 mg total) by mouth every 6 (six) hours as needed for nausea or vomiting. 20 tablet 12/09/2017 01/03/20 18 ondansetron ODT (ZOFRAN-ODT) 4 mg disintegrating tablet Take 4 mg by mouth 3 (three) times a day as needed for vomiting. 07/22/2017 05/26/19 19 potassium chloride in 0.9%NaCl (SODIUM CHLORIDE 0.9% WITH POTASSIUM CHLORIDE 20 MEQ/L) 20 mEq/L Infuse 125 mL/hr into a venous catheter continuously. 12/09/2017 01/03/20 18 sodium chloride 0.9% parenteral solution 99 mL with insulin regular 100 unit/mL solution 100 UnitsIndications:di abetic ketoacidosis Infuse 0-30 Units/hr into a venous catheter as directed. 12/09/2017 01/03/20 18 documented as of this encounter Ordered Prescriptions Prescription Sig Dispense Quantity Refills Last Filled Start Date End Date potassium chloride in 0.9%NaCl (SODIUM CHLORIDE 0.9% WITH POTASSIUM CHLORIDE 20 MEQ/L) 20 mEq/L Infuse 125 mL/hr into a venous catheter continuously. 12/09/2017 01/03/20 18 dextrose 50% (concentrated solution) solutionIndications :Hypoglycemia Infuse 50 mL (25 g total) into a venous catheter every 15 (fifteen) minutes as needed for low blood sugar (blood glucose less than 50 mg/dL AND decreased level of consciousness). 50 mL 12/09/2017 01/03/20 18 dextrose 5% solution Infuse 100 mL/hr into a venous catheter continuously. 50 mL 12/09/2017 01/03/20 18 dextrose (D10W) 10% bolusIndications:Hy poglycemia Infuse 250 mL into a venous catheter every 4 (four) hours as needed (when tube feedings are held or interrupted AND patient is receiving basal insulin (Lantus, Levemir, NPH)). 12/09/2017 01/03/20 18 dextrose (D10W) 10% bolusIndications:Hy poglycemia Infuse 250 mL into a venous catheter every 15 (fifteen) minutes as needed (blood glucose less than 70 mg/dL and unable to swallow/take PO glucose/juice). 12/09/2017 01/03/20 18 sodium chloride 0.9% parenteral solution 99 mL with insulin regular 100 unit/mL solution 100 UnitsIndications:di abetic ketoacidosis Infuse 0-30 Units/hr into a venous catheter as directed. 12/09/2017 01/03/20 18 famotidine (PEPCID) 20 mg tablet Take 1 tablet (20 mg total) by mouth daily. 12/10/2017 01/03/20 18 enoxaparin (LOVENOX) 40 mg/0.4 mL syringeIndications: Deep Vein Thrombosis Prevention Inject 0.4 mL (40 mg total) under the skin daily. 12/09/2017 01/03/20 18 ondansetron (ZOFRAN) 4 mg/2 mL injectionIndication s:Nausea and Vomiting Infuse 2 mL (4 mg total) into a venous catheter every 6 (six) hours as needed for nausea or vomiting (if not tolerating PO). 20 mL 12/09/2017 01/03/20 18 ondansetron ODT (ZOFRAN-ODT) 4 mg disintegrating tabletIndications:N ausea and Vomiting Take 1 tablet (4 mg total) by mouth every 6 (six) hours as needed for nausea or vomiting. 20 tablet 12/09/2017 01/03/20 18 glucagon 1 mg kitIndications:Hypo glycemia Inject 1 mL (1 mg total) into the muscle as instructed every 30 (thirty) minutes as needed (blood glucose less than 70 mg/dL and no IV access and unable to take PO glucose/juice). 12/09/2017 01/03/20 18 dextrose 15 gram/32 mL gel in packetIndications:H ypoglycemia Take 32 mL (15 g total) by mouth every 15 (fifteen) minutes as needed (blood glucose less than 70 mg/dL). 12/09/2017 01/03/20 18 documented in this encounter Discharge Disposition Disposition Code Departure Means Destination Discharge to a critical access hospital Other documented in this encounter Progress Notes * Yolette Whyte, MARY - 12/09/2017 10:50 AM CDT Karina Menjivar [id number] Gio Sewell MD Pre-Education Assessment Visit Type: Initial Introduction: ID verified, Education provided with patient approval, Alert/ oriented x 4, Educationprovided to parent with approval Provider: Unclaimed Property Manager (appt. scheduled with Dr. Ram at [facility] in ) Treatment Prior To Admission: Insulin, Blood glucose monitoring, Diet Knowledge Base: Experienced (diagnosed at age 12) Hemaglobin A1c: Knows value Home Testing: Greater than 2 times per day (test 4-5 times/day) Adherence To: Diet, Insulin regimen, Blood Glucose Testing Regimen, Seldom misses Exercise Habits: Active Hypoglycemia: Hardly ever Home Supplies: No assistance needed Diabetes Management Education Provided: Please see the Patient Education Activity Reports has been diagnosed with gastroparesis. Has an appt. With new blocker and polisher, Dr. Yo Dukes in 2017. Denies hypoglycemia, States takes insulin as prescribed and checks blood sugar 4-5 times/day. States gets nauseated and vomits and this leads to development of DKA. Discharge Recommendations Diabetes/Education Follow Up: Unclaimed Property Manager Yolette Whyte, RN, Milk Bottling Machine Operator 12/09/2017 10:50 AM * Pascual Espinal [facility] - 12/09/2017 7:05 AM CDT Electrolyte monitoring performed by pharmacy on labs from 12/09/17 03:53, Na+=132 K+=4.5 Mg+=1.6 Phos=2.2 Sodium phosphate 30 mmol ivpb run X 1 dose per pharmacy electrolyte replacement protocol for phosphorous =2.2 on 12/09/17 Pharmacy will continue to follow daily. * Janie Cisneros MD - 12/08/2017 8:56 PM CDT General Medicine Daily Progress SUBJECTIVE Chief complaint of vomiting and diarrhea for 1 day. Interval History: Patient is lying in the bed. Patient denies any vomiting or diarrhea or abdominalpain. Patient still does not have much appetite. Patient denies any nausea. Patient is tachycardic. On telemetry at sinus tachycardia. Patient denies any chest pain, palpitation, shortness of breath. Patient is on room air saturating 97-100%. Patient is afebrile. OBJECTIVE Vitals: 24hr Min/Max: Temp Min: 36.4 ??C (97.5 ??F) Max: 37.1 ??C (98.7 ??F) Pulse Min: 96 Max: 135 BP Min: 98/31 Max: 126/67 Resp Min: 16 Max: 20 SpO2 Min: 97 % Max: 100 % Most Recent : Vitals: 12/08/171922 BP: 105/62 Pulse: 110 Resp: 20 Temp: 36.8 ??C (98.2 ??F) SpO2: 100% I/O last 2 completed shifts: In: 3386 [P.O.:1160; I.V.:2226] Out: 2800 [Urine:2800] I/O this shift: In: 600 [P.O.:600] Out: - Physical Exam: Patient seen and examined Not in acute distress HEENT: AT/NC, Neck supple Heart: S1, S2, RRR Lung: CTA bilateral Abdomen: S, NT, ND, BS+ Neuro: AAO times 3, no focal deficit Ext: No gross lower extremity edema Lab/Radiology/Diagnostic Review: Recent Results (from the past 24 hour(s)) POCT glucose Collection Time: 12/07/17 11:47 PM Result Value Ref Range Glucose, POC, bld 223 (H) 71 - 98 mg/dL CBC with auto differential Collection Time: 12/08/17 3:36 AM Result Value Ref Range WBC 8.6 3.8 - 9.9 K/cumm Hgb 10.4 (L) 11.9 - 15.5 g/dL Hct 31.5 (L) 35.6 - 45.5 % Plt 289 150 - 400 K/cumm MPV 9.3 9.1 - 12.3 fL RBC 3.72 (L) 3.90 - 5.20 M/cumm MCV 84.7 81.3 - 96.4 fL MCH 28.0 27.1 - 33.3 pg MCHC 33.0 32.3 - 35.7 g/dL RDW CV 13.4 11.1 - 14.9 % RDW SD 41.4 35.7 - 48.1 fL NRBC Abs 0.00 0.00 - 0.01 K/cumm Comprehensive metabolic panel Collection Time: 12/08/17 3:36 AM Result Value Ref Range Sodium 135 135 - 145 mmol/L Potassium, pl 4.2 3.3 - 4.9 mmol/L Chloride 103 97 - 110 mmol/L CO2 18 (L) 22 - 32 mmol/L Anion Gap 14 2 - 15 mmol/L BUN 9 8 - 25 mg/dL Creatinine 0.29 (L) 0.60 - 1.10 mg/dL Glucose 146 70 - 199 mg/dL Calcium 8.0 (L) 8.5 - 10.3 mg/dL Bilirubin, total 0.5 0.1 - 1.2 mg/dL Protein, pl 5.1 (L) 6.5 - 8.5 g/dL Albumin 3.0 (L) 3.5 - 5.0 g/dL Alk phos 52 40 - 130 Units/L ALT 6 (L) 7 - 45 Units/L AST 12 10 - 45 Units/L Differential, auto Collection Time: 12/08/17 3:36 AM Result Value Ref Range Neutrophil absolute 4.5 1.7 - 6.5 K/cumm Immature granulocyte absolute 0.0 0.0 - 0.1 K/cumm Lymphocytes absolute 3.4 (H) 0.8 - 3.3 K/cumm Monocyte absolute 0.5 0.2 - 0.8 K/cumm Eosinophils absolute 0.0 0.0 - 0.5 K/cumm Basophils, abs 0.0 0.0 - 0.1 K/cumm Neutrophils 53.1 % Immature granulocytes 0.4 % Lymphocytes 40.0 % Monocytes 6.2 % Eosinophils 0.1 % Basophils 0.2 % TSH reflex to free T4 Collection Time: 12/08/17 3:36 AM Result Value Ref Range TSH 1.37 0.30 - 5.00 mcIUnit/mL eGFR Collection Time: 12/08/17 3:36 AM Result Value Ref Range GFR >60 mL/min/1.73 m2 POCT glucose Collection Time: 12/08/17 6:17 AM Result Value Ref Range Glucose, POC, bld 193 (H) 71 - 98 mg/dL POCT glucose Collection Time: 12/08/17 11:50 AM Result Value Ref Range Glucose, POC, bld 198 (H) 71 - 98 mg/dL D-dimer, quantitative Collection Time: 12/08/17 1:49 PM Result Value Ref Range D-dimer <150 (L) 150 - 230 ng/mL D-DU POCT glucose Collection Time: 12/08/17 4:19 PM Result Value Ref Range Glucose, POC, bld 202 (H) 71 - 98 mg/dL No results found. ASSESSMENT/PLAN 1. Acute viral gastroenteritis Improved. Patient still does not have much appetite. Encourage p.o. diet. Continue with IV fluid. 2. Sinus tachycardia Likely due to underlying volume depletion. Patient denies any chest pain, shortness of breath, palpitation. D-dimer less than 150. TSH 1.37. Check 2D echocardiogram. Start Lopressor 12.5 mg p.o. twice a day. Monitor heart rate closely. Continue with telemetry. Cardiology on board-as per Cardiology tachycardia is likely due to hightened sympathetic tone 3. Non-anion gap metabolic acidosis Likely due to normal saline infusion. Serum bicarbonate this morning was 18. Check VBG. Blood sugars are controlled. Change IV fluid to LR. Monitor BMP closely. 4. Diabetes type 1 Continue with insulin. Blood sugars are controlled. 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 Normocytic anemia Likely dilutional. No evidence of overt bleeding. Baseline hemoglobin 13-14. Patient denies any black stool, dark stool, fresh blood in stool. Will do basic anemia workup. 5. DVT/GI prophylaxis Full code * Lucinda Woodward RD - 12/07/2017 8:[address] INITIAL ASSESSMENT HT;5'0 WT;117 LBS IBW;100+-10% 22 JENIFER, SKIN WDL. CR .32, GLU 279(/), POC GLU 230(12/07). HUMALOG, ZOFRAN. PMH;NA PT IS 117% IBW, 22.1 BMI. PT C/O NAUSEA, VOMITING, DIARRHEA ON ADMISSION. NO INTAKE NOTED ON CONSISTENT CARBOHYDRATE DIET OF YET. HIGH NUTRITIONAL RISK. FOLLOW PLANS, LABS, SKIN, INTAKE. documented in this encounter H&P Notes * Rayo Carlisle MD - 12/07/2017 12:19 PM CDT General Medicine History and Physical Subjective Patient is a 22 y.o. female with chief complaint of vomiting diarrhea for 1 day duration. HPI: 22 year old female with medical history of type I diabetes presented with nausea vomiting diarrhea x 1 day duration. She also complained of generalized abdominal pain . Patient not cooperative. Vitalsigns on admission: Pulse 115 BP 140 / 99 RR 18 oxygen 97% On admission : BMP with glucose level of279 , Urinalysis positive for glucose and ketones . Elevated Beta - Hydroxybutyrate . EKG with sinus tachycardia. She was started on fluids overnight. This morning she is denying abdominal pain. No vomiting or diarrhea Past Medical History: Diagnosis Date ??? HX OTHER MEDICAL 2011 Diabetes mellitus, type 1 History reviewed. No pertinent surgical history. Prescriptions Prior to Admission Medication Sig Dispense Refill Last Dose ??? insulin glargine (LANTUS) 100 unit/mL injection Inject 12 Units under the skin nightly. ??? insulin lispro (HumaLOG) 100 unit/mL injection Inject under the skin 3 (three) times a day before meals. No Known Allergies Social History Substance Use Topics ??? Smoking status: Never Smoker ??? Smokeless tobacco: Never Used ??? Alcohol use Not on file History reviewed. No pertinent family history. Review of Systems POSITIVE FOR NAUSEA VOMITING DIARRHEA ABDOMINAL PAIN Negative for fever , cough , chest pain , shortness of breath Objective Vitals: Arrival Vitals Temp 12/06/17 2345 36.8 ??C (98.2 ??F) Pulse 12/06/17 2345 115 Resp 12/06/17 2345 18 BP 12/06/17 2345 140/99 SpO2 12/06/17 2345 97 % Temp src 12/06/17 2345 Oral Heart Rate Source 12/07/17 0332 Monitor Patient Position 12/07/17 0200 Lying BP Location 12/07/17 0200 Right arm FiO2 (%) -- 24hr Min/Max: Temp Min: 36.8 ??C (98.2 ??F) Max: 36.9 ??C (98.4 ??F) Pulse Min: 100 Max: 134 BP Min: 76/28 Max: 141/71 Resp Min: 16 Max: 20 SpO2 Min: 97 % Max: 99 % Most Recent : Vitals: 12/07/17 1137 BP: 141/71 Pulse: (!) 134 Resp: 20 Temp: SpO2: I/O last 2 completed shifts: In: 3000 [IV Piggyback:3000] Out: - No intake/output data recorded. Physical exam: General: mild distress. Not cooperative HEENT: PERRL, conjunctiva non-injected, no scleral icterus, oropharynx clear and non-injected, no lesions or ulcers, no lymphadenopathy, MMM neck: supple. no JVD no carotid bruits lymph nodes non tender not swollen skin: no petechiae no ecchymosis CV: RRR, Normal S1, S2, no murmurs, rubs, or gallops Respiratory: clear transmission of air in all lung castillo. No rales, rhonchi, or wheezes Abdomen: +BS, NTD, no masses, no hepatosplenomegaly Extremities: No edema, non-tender, warm, well-perfused Neuro: CN II-XII intact Lab/Radiology/Diagnostic Review: Laboratory review: Chemistry BMP Lab Results Component Value Date GLUCOSE 230 (H) 12/07/2017 GLUCOSE 279 (H) 12/06/2017 CALCIUM 9.3 12/06/2017 SODIUM 136 12/06/2017 POTASSIUM 4.1 12/06/2017 CO2 24 12/06/2017 BUNSER 16 12/06/2017 CREATININE 0.32 (L) 12/06/2017 and CBC: Lab Results Component Value Date WBC 5.9 12/06/2017 RBC 4.77 12/06/2017 HGB 13.1 12/06/2017 HCT 38.8 12/06/2017 MCV 81.3 12/06/2017 MCH 27.5 12/06/2017 MCHC 33.8 12/06/2017 RDWCV 13.5 12/06/2017 RDWSD 39.7 12/06/2017 MPV 9.1 12/06/2017 NRBCABS 0.00 12/06/2017 Assessment /Plan Active Problems: No Active Problems: There are no active problems currently on the Problem List. Please update the Problem List and refresh. Assessment / Plan Nausea vomiting / Gastroenteritis - No abdominal pain Abdominal exam benign Continue with IV fluids Sinus tachycardia with heart rates in the 130's Trial of metoprolol 2.5 mg IV for tachycardia documented in this encounter Consult Notes * Mnan Gonzalez DO - 12/08/2017 4:02 PM CDT Cardiology Consultation note Admit date: 12/06/2017 Reason for Consultation: sinus tachy History of Present Illness: Karina Menjivar is a pleasant 22 y.o. female patient presented with nausea vomiting and DKA. She denies any chest discomfort, syncope or near syncope, symptoms consistent with heart failure. Past Medical History: Diagnosis Date ??? HX OTHER MEDICAL 2011 Diabetes mellitus, type 1 History reviewed. No pertinent surgical history. History reviewed. No pertinent family history. Social History Social History ??? Marital status: Single Spouse name: N/A ??? Number of children: N/A ??? Years of education: N/A Social History Main Topics ??? Smoking status: Never Smoker ??? Smokeless tobacco: Never Used ??? Alcohol use None ??? Drug use: Unknown ??? Sexual activity: Not Asked Other Topics Concern ??? None Social History Narrative ??? None Review of systems: Constitutional: Negative for fever, chills, malaise/fatigue, and diaphoresis. Psychiatric: Negative for depression and anxiety. Skin: Negative for rash and itching. HENT: Negative for headaches, lightheadedness, and congestion. Negative for vertigo. Eyes: Negative for blurred vision and itching. Cardiovascular: Negative for chest pain, Negative for palpitations and syncope. Respiratory: Negative for cough and sputum production. Negative for shortness of breath. Gastrointestinal: Negative for nausea, vomiting, abdominal pain and diarrhea. Musculoskeletal: Negative for muscle weakness, extremity redness or swelling. Neurological: Negative for dizziness, focal weakness, tremors, and loss of consciousness. Vital Signs: Arrival Vitals Temp 12/06/17 2345 36.8 ??C (98.2 ??F) Pulse 12/06/17 2345 115 Resp 12/06/17 2345 18 BP 12/06/17 2345 140/99 SpO2 12/06/17 2345 97 % Temp src 12/06/17 2345 Oral Heart Rate Source 12/07/17 0332 Monitor Patient Position 12/07/17 0200 Lying BP Location 12/07/17 0200 Right arm FiO2 (%) -- Vitals: 12/08/17 0500 12/08/17 0600 12/08/17 0735 12/08/17 1150 BP: 106/54 115/56 BP Location: Right arm Right arm Patient Position: Lying Lying Pulse: 122 110 116 118 Resp: 16 16 Temp: 36.8 ??C (98.2 ??F) 36.4 ??C (97.5 ??F) TempSrc: Oral Tympanic SpO2: 98% 98% Weight: Height: Intake/Output Summary (Last 24 hours) at 12/08/17 1602 Last data filed at 12/08/17 1153 Gross per 24 hour Intake 2335 ml Output 2200 ml Net 135 ml Wt Readings from Last 3 Encounters: 12/07/17 53.1 kg (117 lb 1 oz) 02/08/17 45.4 kg (100 lb 2.8 oz) 08/21/14 57.2 kg (126 lb 1.7 oz) (54 %, Z= 0.09)* * Growth percentiles are based on [facility] 2-20 Years data. Physical Exam: General: Well developed, well nourished, in no acute distress, oriented to person, place, and time. Skin: Warm and dry Head: Normocephalic, oral mucosa and conjunctivae normal Neck: No thyromegaly or bruits. Carotid pulses 2+ Lungs: Clear to auscultation and percussion. Respirations unlabored Cardiac: PMI and JVP normal, S1 and S2 normal, flow murmur, no gallop or rub Abd: Soft, nontender, BS active, no hepatosplenomegaly or masses, no abdominal bruit or enlarged aortic pulsation Extremities: No clubbing, cyanosis. No edema. Femoral pulses 2+. Pedal pulses 2+ Musculoskeletal: Muscle strength normal. No scoliosis. Neurologic: Oriented to person, place, and time. Mood not depressed. No Known Allergies Home Medications: Prior to Admission medications Medication Sig Start Date End Date Taking? Authorizing Provider insulin glargine (LANTUS) 100 unit/mL injection Inject 12 Units under the skin nightly. Yes Historical Provider, insulin lispro (HumaLOG) 100 unit/mL injection Inject under the skin 3 (three) times a day before meals. Yes Historical Provider, Labs: Recent Labs Lab Units 12/08/17 1150 12/08/17 0336 12/06/17 2355 SODIUM mmol/L -- -- 135 -- 136 POTASSIUM PLASMA mmol/L -- -- 4.2 -- 4.1 CHLORIDE mmol/L -- -- 103 -- 96* CO2 mmol/L -- -- 18* -- 24 BUN SERUM mg/dL -- -- 9 -- 16 CREATININE mg/dL -- -- 0.29* -- 0.32* [id number] mL/min/1.73 m2 -- -- >60 -- >60 GLUCOSE mg/dL -- -- 146 -- 279* POC GLUCOSE MONITOR mg/dL 198* < > -- < > -- CALCIUM mg/dL -- -- 8.0* -- 9.3 ALBUMIN g/dL -- -- 3.0* -- 4.2 < > = values in this interval not displayed. Recent Labs Lab Units 12/08/17 0336 12/06/17 2355 ALK PHOS Units/L 52 70 BILIRUBIN TOTAL mg/dL 0.5 0.3 TOTAL PROTEIN g/dL 5.1* 7.2 ALT Units/L 6* 8 AST Units/L 12 13 Recent Labs Lab Units 12/08/17 0336 12/06/17 2355 WHITE BLOOD CELLS K/cumm 8.6 5.9 HEMOGLOBIN g/dL 10.4* 13.1 HEMATOCRIT % 31.5* 38.8 PLATELETS K/cumm 289 382 Lab Results Component Value Date CHOL 160 02/08/2017 TRIG 66 02/08/2017 HDL 57 02/08/2017 LDL 89 07/10/2013 Lab Results Component Value Date TSH 1.37 12/08/2017 FREET4 0.91 08/18/2014 No results found for: BNP Testing: Cardiac Rhythm: Sinus tachycardia (12/08/17 0735) No results found. No results found for this or any previous visit.] Impression: 1. Sinus tachycardia, likely from underlying problems. Plan: 1. Patient remains slightly acidotic with this is a mm blood work with a bicarb of 18 and an anion gap of 14. Would continue with fluid resuscitation. Heart rate likely response of heightened sympathetic tone. Will revisit as needed. Mann Gonzalez DO 12/08/2017 4:02 PM documented in this encounter Nursing Notes * Mar Hope, RN - 12/09/2017 3:28 PM CDT 1433- pt awake and alert ambulatory to stretcher for EMS to transport to [facility] * Mar Hope RN - 12/09/2017 1:49 PM CDT Report called to MARY Mcknight at [phone].EMS notified and mother aware of transfer * Arlen Hanson RN - 12/09/2017 12:15 PM CDT No INR needed prior to picc placement per Dr. Cisneros * Mar Hope RN - 12/09/2017 12:12 PM CDT Pt and family agree to be transferred to [facility] * Mar Hope RN - 12/09/2017 11:26 AM CDT After several phone calls, Lucinda from [facility] placement called and stated no bed available at [facility],a [facility] facility, but pt could be transferred to [facility] (also [facility] hospital). * Mar Hope RN - 12/09/2017 10:03 AM CDT Spoke with pt's mother at length (with pt permission), reviewed labs and medications. Mother continues to wish to be transferred to [facility], mother aware of Dr statement. * Mar Hope RN - 12/09/2017 9:[address] Cisneros aware patient and patient's mother wishes to have patient transferred to [facility]. states we can treat her DKA here and does not need to be transferred. * Leyla Mcgraw RN - 12/09/2017 8:30 AM CDT Report called to MARY Win in ICU. Patient to be transferred for insulin drip therapy. * Mar Hope RN - 12/07/2017 2:27 PM CDT Just spoke with mother in depth on telephone, mother believes pt is in DKA, she states that the patient has all the symptoms that she has everytime that she is in DKA. Mother states that pt was admitted to [facility] November 08- with DKA, returned on November 22 and again admitted with DKA, discharged on the and was back in the ER on the with Lethargy and N/V, this time she was transfer red to [facility] and again treated for DKA. She was discharged on November 30 and hasn't been right * Mar Hope RN - 12/07/2017 12:[address] Carlisle viewed EKG * Mar Hope RN - 12/07/2017 11:40 AM CDT Pt hear rate SR in 130-140. Rn to pt room to find pt lying in bed resting, awakens easily, denies pain/sob/or n/v documented in this encounter ED Notes * Marylou Hastings MD - 12/07/2017 12:10 AM CDT HPI Chief Complaint Patient presents with ??? Nausea diarrhea HPI 12:04 AM 12/07/2017 Patient is a 22 year old female with history of type 1 diabetes presenting to theED complaining of multiple episodes of emesis that began 6 hours ago. Patient states that she last ate 9 hours ago and she also has diarrhea and abdominal pain. She has been [facility] a [facility] for DKA and states that she has been taking her insulin regularly. She reports that last year her insurance changed and they no longer cover an insulin pump and since then she has had a lot of difficulty controlling her diabetes. Denies urinary burning. There are no additional complaints or modifying factors at this time. Patient History There are no active problems to display for this patient. Past Medical History: Diagnosis Date ??? HX OTHER MEDICAL 2011 Diabetes mellitus, type 1 History reviewed. No pertinent surgical history. History reviewed. No pertinent family history. Social [...] chest pain and palpitations. Gastrointestinal: Positive for abdominal pain, diarrhea, nausea and vomiting. Negative for constipation. Genitourinary: Negative for dysuria and frequency. Musculoskeletal: Negative for arthralgias, back pain, myalgias and neck pain. Skin: Negative for color change, pallor, rash and wound. Neurological: Negative for dizziness, syncope, weakness, light-headedness and headaches. All other systems reviewed and are negative. Physical Exam ED Triage Vitals Temp Pulse Resp BP SpO2 12/06/17 2345 12/06/17 2345 12/06/17 2345 12/06/17 2345 12/06/17 2345 36.8 ??C (98.2 ??F) 115 18 140/99 97 % Temp src Heart Rate Source Patient Position BP Location FiO2 (%) 12/06/17 2345 12/07/17 0332 12/07/17 0200 12/07/17 0200 -- Oral Monitor Lying Right arm Physical Exam Constitutional: She is oriented to person, place, and time. She appears well- developed and well-nourished. Actively vomiting. Mild distress secondary to vomiting. HENT: Head: Normocephalic and atraumatic. Mouth/Throat: Oropharynx is clear and moist. Eyes: Conjunctivae and EOM are normal. Neck: Normal range of motion. Neck supple. Cardiovascular: Normal rate, regular rhythm and intact distal pulses. Pulmonary/Chest: Effort normal and breath sounds normal. [...] than 2 seconds. No rash noted. No erythema.There is pallor. Psychiatric: She has a normal mood and affect. Her behavior is normal. Nursing note and vitals reviewed. MDM MDM Number of Diagnoses or Management Options Amount and/or Complexity of Data Reviewed Clinical lab tests: ordered and reviewed Vitals: 12/08/17 0200 BP: Pulse: 96 Resp: Temp: SpO2: Labs Reviewed URINALYSIS AND REFLEX TO MICROSCOPIC AND CULTURE - Abnormal Result Value Color, ur Yellow Clarity, ur Clear Specific gravity, ur 1.027 (*) pH, urine 8.0 Protein, ur ql Negative Glucose, ur ql [...] for uric acid stone formation. Source: [employer].Last revised 05-13-2017 COMPREHENSIVE METABOLIC PANEL - Abnormal Sodium 136 Potassium, pl 4.1 Chloride 96 (*) CO2 24 Anion Gap 16 (*) BUN 16 Creatinine 0.32 (*) Glucose 279 (*) Calcium 9.3 Bilirubin, total 0.3 Protein, pl 7.2 Albumin 4.2 Alk phos 70 ALT 8 AST 13 Narrative: DIFFERENTIAL AUTO - Abnormal Neutrophil absolute 5.0 Immature granulocyte absolute 0.0 Lymphocytes absolute 0.7 (*) Monocyte absolute 0.2 Eosinophils absolute 0.0 Basophils, abs 0.0 Neutrophils 85.0 Immature granulocytes 0.7 Lymphocytes 11.4 Monocytes 2.6 Eosinophils 0.0 Basophils 0.3 Narrative: BLOOD GAS, VENOUS - Abnormal pH, Venous 7.36 PCO2, Venous 33 (*) PO2, Venous 173 HCO3 Venous, Calculated 19 (*) BE, venous -5 Narrative: BETA-HYDROXYBUTYRATE - Abnormal Beta-Hydroxybutyrate 2.70 (*) Narrative: POCT GLUCOSE DEVICE - Abnormal Glucose, POC, bld 237 (*) Narrative: POCT GLUCOSE DEVICE - Abnormal Glucose, POC, bld 263 (*) Narrative: POCT GLUCOSE DEVICE - Abnormal Glucose, POC, bld 210 (*) Narrative: POCT GLUCOSE DEVICE - Abnormal Glucose, POC, bld 236 (*) Narrative: POCT GLUCOSE DEVICE - Abnormal Glucose, POC, bld 298 (*) Narrative: POCT GLUCOSE DEVICE - Abnormal Glucose, POC, bld 286 (*) Narrative: POCT GLUCOSE DEVICE - Abnormal Glucose, POC, bld 230 (*) Narrative: POCT GLUCOSE DEVICE - Abnormal Glucose, POC, bld 331 (*) Narrative: POCT GLUCOSE DEVICE - Abnormal Glucose, POC, bld 199 (*) Narrative: POCT GLUCOSE DEVICE - Abnormal Glucose, POC, bld 184 (*) Narrative: POCT GLUCOSE DEVICE - Abnormal Glucose, POC, bld 212 (*) Narrative: POCT GLUCOSE DEVICE - Abnormal Glucose, POC, bld 223 (*) Narrative: CBC WITH AUTO DIFFERENTIAL WBC 5.9 Hgb 13.1 Hct 38.8 Plt 382 MPV 9.1 RBC 4.77 MCV 81.3 MCH 27.5 MCHC 33.8 RDW CV 13.5 RDW SD 39.7 NRBC Abs 0.00 Narrative: LIPASE Lipase 10 Narrative: HCG, URINE, QUALITATIVE HCG, ur Negative Narrative: EGFR GFR >60 Narrative: CBC WITH AUTO DIFFERENTIAL COMPREHENSIVE METABOLIC PANEL POCT GLUCOSE DEVICE POCT GLUCOSE DEVICE POCT GLUCOSE DEVICE POCT GLUCOSE DEVICE POCT GLUCOSE DEVICE POCT GLUCOSE DEVICE POCT GLUCOSE DEVICE POCT GLUCOSE DEVICE POCT GLUCOSE DEVICE POCT GLUCOSE DEVICE POCT GLUCOSE DEVICE POCT GLUCOSE DEVICE POCT GLUCOSE DEVICE POCT GLUCOSE DEVICE POCT GLUCOSE DEVICE No orders to display 3:46 AM 12/07/[address] Fallon (Hospitalist) about patient condition and current symptoms.Agrees with plan and accepts for admit. Intractable vomiting with nausea, unspecified vomiting type Type 1 diabetes mellitus with hyperglycemia (CMS/[facility]) I, Marylou Hastings MD have personally performed the services described in the documentation , reviewed the documentation,as recorded by the scribe in my presence, and it accurately and completely records my words and actions. 12:10 AM: Dago Walsh, scribing for and in the presence of Marylou Hastings MD. I electronically signed this note at 12:10 AM on 12/08/2017. Marylou Hastings MD 12/08/17 0300 * Peggy Lazcano RN - 12/06/2017 11:45 PM CDT 22 yr female arrives to the ED with complaints of nausea/vomiting and diarrhea. Pt states symptoms started this evening. Pt reports some abdominal pain rated at a 5/10. No fevers reported. Grandmother at bedside. documented in this encounter Miscellaneous Notes * Plan of Care - Mar Hope RN - 12/09/2017 12:57 PM CDT Goals: Clinical Goals for the Shift: pt to be hemodynamically stable, no nausea/vomiting, free of pain andinjury Summary: pt remain hemodynamically stable, continues to be tachy on alarm security or surveillance monitor with rate up [id number] with activity, but mostly stays in low 100-110. Free on N/V and pain or injury. PICC line placed and will transfer to [facility] room 496, phone # [phone]. * Plan of Care - Cathy Lopez RN - 12/08/2017 12:55 PM CDT Fluid Volume: ??? Maintenance of adequate hydration will improve Progressing ??? Will show no signs and symptoms of electrolyte imbalance Progressing Health Behavior: ??? Understanding of discharge needs will improve Progressing Lack of Knowledge: ??? Verbalization of understanding the information provided will improve Progressing Lack of Knowledge: ??? Ability to [...] Progressing Goals: Clinical Goals for the Shift: To remain hemodynamically stable and free from injury/falls. Summary: Denies any c/o's for shift. UAL to bathroom with noted steady gait. Note with activity that pt's HR up to 130-140's and pt does state heart racing/palpations but denies any shortness of breath or dizziness. Will continue to evaluate and chart. Poor appetite continues but no N/V noted or r eported. * Plan of Care - Mar Hope RN - 12/07/2017 5:00 PM CDT Goals: Clinical Goals for the Shift: pt to be hemodynamically stable, reduced nausea and vomiting Summary: pt continues to be tachy, was given one time dose of metoprolol IV after rates in 130-140,much improved afterwards. Pt continues to be lethargic and drowsy but aox4. No nausea, vomiting or abdominal pain documented in this encounter Plan of Treatment Not on file documented as of this encounter Procedures Procedure Name Priority Date/Time Associated Diagnosis Comments POCT GLUCOSE DEVICE Routine 12/09/2017 2 :29 PM CDT POCT GLUCOSE DEVICE Routine 12/09/2017 1 :32 PM CDT POCT GLUCOSE DEVICE Routine 12/09/2017 1 2:39 PM CDT POCT GLUCOSE DEVICE Routine 12/09/2017 1 1:40 AM CDT TRANSTHORACIC ECHO (TTE) COMPLETE W DOPPLER/CF WO CONTRAST Routine 12/09/2017 10:54 AM CDT POCT GLUCOSE DEVICE Routine 12/09/2017 1 0:36 AM CDT POCT GLUCOSE DEVICE Routine 12/09/2017 9 :27 AM CDT POCT GLUCOSE DEVICE Routine 12/09/2017 7 :35 AM CDT EGFR Routine 12/09/2017 3:53 AM CDT DIFFERENTIAL AUTO Routine 12/09/2017 3:5 3 AM CDT IRON PROFILE W/ IBC Routine 12/09/2017 3 :53 AM CDT CBC WITH AUTO DIFFERENTIAL Routine 12/09/2017 3:53 AM CDT RETICULOCYTES Routine 12/09/2017 3:53 AM CDT DIRECT ANTIGLOBULIN TEST Routine 12/09/2017 3:53 AM CDT MAGNESIUM Routine 12/09/2017 3:53 AM CDT LACTATE DEHYDROGENASE Routine 12/09/2017 3:53 AM CDT FOLATE Routine 12/09/2017 3:53 AM CDT FERRITIN Routine 12/09/2017 3:53 AM CDT VITAMIN B12 Routine 12/09/2017 3:53 AM CDT RENAL FUNCTION PANEL Routine 12/09/2017 3:53 AM CDT BETA-HYDROXYBUTYRATE Routine 12/09/2017 3:50 AM CDT PHOSPHORUS Timed 12/09/2017 3:50 AM CDT MAGNESIUM Timed 12/09/2017 3:50 AM CDT POCT GLUCOSE DEVICE Routine 12/09/2017 2 :16 AM CDT ECG 12-LEAD STAT 12/08/2017 11:01 PM CDT POCT GLUCOSE DEVICE Routine 12/08/2017 1 1:01 PM CDT POCT GLUCOSE DEVICE Routine 12/08/2017 1 0:12 PM CDT BLOOD GAS, VENOUS STAT 12/08/2017 9:1 9 PM CDT POCT GLUCOSE DEVICE Routine 12/08/2017 4 :19 PM CDT D-DIMER, QUANTITATIVE STAT 12/08/2017 1:49 PM CDT POCT GLUCOSE DEVICE Routine 12/08/2017 1 1:50 AM CDT POCT GLUCOSE DEVICE Routine 12/08/2017 6 :17 AM CDT EGFR Routine 12/08/2017 3:36 AM CDT DIFFERENTIAL AUTO Routine 12/08/2017 3:3 6 AM CDT THYROID FUNCTION CASCADE Routine 12/08/2017 3:36 AM CDT CBC WITH AUTO DIFFERENTIAL Routine 12/08/2017 3:36 AM CDT COMPREHENSIVE METABOLIC PANEL Routine 12/08/2017 3:36 AM CDT POCT GLUCOSE DEVICE Routine 12/07/2017 1 1:47 PM CDT POCT GLUCOSE DEVICE Routine 12/07/2017 8 :52 PM CDT POCT GLUCOSE DEVICE Routine 12/07/2017 5 :22 PM CDT POCT GLUCOSE DEVICE Routine 12/07/2017 2 :21 PM CDT POCT GLUCOSE DEVICE Routine 12/07/2017 1 2:22 PM CDT POCT GLUCOSE DEVICE Routine 12/07/2017 7 :35 AM CDT POCT GLUCOSE DEVICE Routine 12/07/2017 5 :30 AM CDT POCT GLUCOSE DEVICE Routine 12/07/2017 4 :27 AM CDT BETA-HYDROXYBUTYRATE Add-On 12/07/2017 3:52 AM CDT BLOOD GAS, VENOUS Add-On 12/07/2017 3:5 2 AM CDT POCT GLUCOSE DEVICE Routine 12/07/2017 3 :24 AM CDT POCT GLUCOSE DEVICE Routine 12/07/2017 2 :23 AM CDT URINALYSIS AND REFLEX TO MICROSCOPIC AND CULTURE STAT 12/07/2017 1:51 AM CDT HCG, URINE, QUALITATIVE STAT 12/07/2017 1:51 AM CDT POCT GLUCOSE DEVICE Routine 12/07/2017 1 :11 AM CDT EGFR STAT 12/06/2017 11:55 PM CDT DIFFERENTIAL AUTO STAT 12/06/2017 11: 55 PM CDT CBC WITH AUTO DIFFERENTIAL STAT 12/06/2017 11:55 PM CDT LIPASE STAT 12/06/2017 11:55 PM CDT COMPREHENSIVE METABOLIC PANEL STAT 12/06/2017 11:55 PM CDT POCT GLUCOSE DEVICE Routine 12/06/2017 1 1:47 PM CDT documented in this encounter Results * (ABNORMAL) POCT glucose (12/09/2017 2:29 PM CDT) Glucose, POC 115(H) 71 - 98 mg/dL TOMY OwensVASHTI) Blood specimen (specimen) 12/09/2017 2:29 PM CDT 12/09/2017 2:29 PM CDT Narrative TOMY SAHU (VASHTI) - 12/09/2017 2:30 PM CDT us Janie Cisneros MD LAB POCT ORDERABLES - DE VICE Final Result TOMY SAHU (VASHTI) 1 [facility] Department [place] [address] * (ABNORMAL) POCT glucose (12/09/2017 1:32 PM CDT) Glucose, POC 135(H) 71 - 98 mg/dL TOMY SAHU (FARGO) Blood specimen (specimen) 12/09/2017 1:32 PM CDT 12/09/2017 1:32 PM CDT Narrative TOMY SAHU (VASHTI) - 12/09/2017 1:33 PM CDT Janie Cisneros MD LAB POCT ORDERABLES - DE VICE Final Result Performing Organization Address City/[facility]/ZIP Co de Phone Number TOMY SAHU (VASHTI) [address] [place] [address] [place] [address] * (ABNORMAL) POCT glucose (12/09/2017 12:39 PM CDT) Glucose, POC 133(H) 71 - 98 mg/dL TOMY LUIS ALBERTO (VASHTI) Blood specimen (specimen) 12/09/2017 12:39 PM CDT 12/09/2017 12:39 PM CDT Narrative TOMY SAHU (VASHTI) - 12/09/2017 12:40 PM CDT us Janie Cisneros MD LAB POCT ORDERABLES - DE VICE Final Result Performing Organization Address [facility]/ZIP Co de Phone Number TOMY SAHU (FARGO) [address] [place] [address] [place] [address] * (ABNORMAL) POCT glucose (12/09/2017 11:40 AM CDT) Glucose, POC 142(H) 71 - 98 mg/dL TOMY SAHU (FARGO) Blood specimen (specimen) 12/09/2017 11:40 AM CDT 12/09/2017 11:40 AM CDT Narrative TOMY SAHU (VASHTI) - 12/09/2017 11:41 AM CDT Janie Cisneros MD LAB POCT ORDERABLES - DE VICE Final Result TOMY SAHU (FARGO) 1 [facility] [place] [address] * TRANSTHORACIC ECHO (TTE) COMPLETE W DOPPLER/CF WO CONTRAST (12/09/2017 10:54 AM CDT) Anatomical Region Laterality Modality Ultrasound 12/09/2017 10:3 8 AM CDT Narrative 12/09/2017 1:52 PM CDT [address] [place] [address] Echocardiogram Report ADDENDUM Patient Name: KARINA MENJIVAR : 1995 Study Date: 12/09/2017 10:38:14 Gender: F 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 Indications: Tachycardia. Measurements: 2D/M Mode ?Doppler ? Measurement ?Value ?Normal Range ? Measurement ?Value ?Normal Range ? EF Teich MM ?75.4 ? [ 55.0 - 70.0 ] percent ?MARIA DEL ROSARIO Vmax ? 2.41 ? [ 2.00 - 4.00 ] cm2 ? LVIDd MM ? 3.95 ? [ 3.90 - 5.30 ] cm ? AV Mean PG ? 5 ?[ 2 - 4 ] mmHg ? LVIDs MM ? 2.23 ? [ 2.30 - 3.90 ] cm ? AV Peak Denys ?1.42 ? [ 1.00 - 1.70 ] m/s ? LVPWd MM ? 0.62 ? [ 0.60 - 1.00 ] cm ? AV VTI ? 26.04 ?cm ? IVSd MM ?0.76 ? [ 0.60 - 0.90 ] cm ? LVOT Diam ?1.79 ? [ 1.70 - 2.10 ] cm ? LA Dimension MM ?2.28 ? [ 2.70 - 3.80 ] cm ? LVOT Peak Denys ?1.14 ? [ 0.70 - 1.10 ] m/s ? AoR Diam MM ?2.74 ? [ 2.60 - 3.70 ] cm ? LVOT VTI ? 20.04 ?[ 20.00 - 30.00 ] cm ? ACS MM ? 1.27 ? cm ? MV E Peak Denys ?0.82 ? [ 0.60 - 1.30 ] m/s ? MV A Peak Denys ?0.92 ? [ 1.00 - 1.20 ] m/s ? MV PHT ? 31 ? [ 20 - 100 ] msec ? MV Decel Time ?108 ?[ 104 - 258 ] msec ? PV Peak Denys ?0.86 ? [ 0.40 - 0.80 ] m/s ? TR Peak Denys ?3.16 ? [ 1.00 - 2.80 ] m/s ? TR Peak PG ? 40 ? mmHg ? Findings: Atrial Septum: Normal atrial septum. [...] Dung Randall 2017-12-09 16:49:04 CDT CC: CC: Procedure Note Mann Gonzalez DO / Dung Randall MD - 12/09/[address] [address] Echocardiogram Report ADDENDUM Patient Name: KARINA MENJIVARPatient ID: [id number] : [id number] Date: 12/09/2017 10:38:14 Gender: FAccession #: [id number] Tech: NPLocation: [id number] Ref.Physician: Kedar CISNEROSight(Cm): 155 BSA: 1.5Weight(Kg): 52.2 Quality: GoodOrder Physician: Venkata Procedures: Echocardiographic Report: Transthoracic echocardiogram with complete 2D, M-Mode, and color Dopplerexamination. Indications: Tachycardia. Measurements: 2D/M Mode Doppler Measurement Value Normal Range MeasurementValue Normal Range EF Teich MM 75.4 [ 55.0 - 70.0 ] percent MARIA DEL ROSARIO Vmax2.41 [ 2.00 - 4.00 ] cm2 LVIDd MM 3.95 [ 3.90 - 5.30 ] cm AV Mean PG 5[ 2 - 4 ] mmHg LVIDs MM 2.23 [ 2.30 - 3.90 ] cm AV Peak Vel1.42 [ 1.00 - 1.70 ] m/s LVPWd MM 0.62 [ 0.60 - 1.00 ] cm AV VTI26.04 cm IVSd MM 0.76 [ 0.60 - 0.90 ] cm LVOT Diam1.79 [ 1.70 - 2.10 ] cm LA Dimension MM 2.28 [ 2.70 - 3.80 ] cm LVOT Peak Vel1.14 [ 0.70 - 1.10 ] m/s AoR Diam MM 2.74 [ 2.60 - 3.70 ] cm LVOT VTI20.04 [ 20.00 - 30.00 ] cm ACS MM 1.27 cm MV E Peak Vel0.82 [ 0.60 - 1.30 ] m/s MV A Peak Vel0.92 [ 1.00 - 1.20 ] m/s MV PHT 31[ 20 - 100 ] msec MV Decel [id number] [ 104 - 258 ] msec PV Peak Vel0.86 [ 0.40 - 0.80 ] m/s TR Peak Vel3.16 [ 1.00 - 2.80 ] m/s TR Peak PG 40mmHg Findings: Atrial Septum: Normal atrial septum. Left Ventricle: Normal left ventricular systolic function with no focal wall motionabnormalities. Normal left ventricular size. Normal left ventricular wall thickness. Normal leftventricular diastolic function. Ejection fraction is visually estimated [...] of the tricuspid valve. Normal right ventricular systolicpressure. Pericardium: Normal pericardium with no significant pericardial effusion. Aorta: Normal aortic root. Sinus of Valsalva is normal. Aortic arch is normal.Descending aorta is normal. IVC: Normal size and normal respiratory collapse consistent with normal rightatrial pressure (<5 mmHg). Pulmonary Artery: Normal pulmonary artery size. Conclusions: Normal left ventricular systolic function with no focal wall motionabnormalities. Normal left ventricular size. Normal left ventricular wall thickness. Normal leftventricular diastolic function. Ejection fraction is visually estimated at 69 %. No significant valvular disease. Electronically Signed By: Dr Dung Randall 2017-12-09 16:49:04 CDT CC: CC: Janie Cisneros MD CV ECHO PROCEDURES Edite d Result - Final * (ABNORMAL) POCT glucose (12/09/2017 10:36 AM CDT) Glucose, POC 151(H) 71 - 98 mg/dL [facility] ([place]) Blood specimen (specimen) 12/09/2017 10:36 AM CDT 12/09/2017 10:36 AM CDT Narrative TOMY SAHU (FARGO) - 12/09/2017 10:37 AM CDT Janie Cisneros MD LAB POCT ORDERABLES - DE VICE Final Result Performing Organization Address City/[facility] Co de Phone Number TOMY SAHU (FARGO) [address] [place] [address] [place] [address] * (ABNORMAL) POCT glucose (12/09/2017 9:27 AM CDT) [facility] Glucose, POC 220(H) 71 - 98 mg/dL [facility] ([place]) Blood specimen (specimen) 12/09/2017 9:27 AM CDT 12/09/2017 9:27 AM CDT Narrative TOMY SAHU (FARGO) - 12/09/2017 9:29 AM CDT Janie Cisneros MD LAB POCT ORDERABLES - DE VICE Final Result TOMY SAHU (FARGO) [address] [place] [address] [place] [address] * (ABNORMAL) POCT glucose (12/09/2017 7:35 AM CDT) [facility] Glucose, POC 200(H) 71 - 98 mg/dL TOMY SAHU (VASHTI) Blood specimen (specimen) 12/09/2017 7:35 AM CDT 12/09/2017 7:35 AM CDT Narrative TOMY SAHU (VASHTI) - 12/09/2017 7:37 AM CDT us Janie Cisneros MD LAB POCT ORDERABLES - DE VICE Final Result TOMY SAHU (VASHTI) 1 [facility] Department [place] [address] * eGFR (12/09/2017 3:53 AM CDT) eGFR >60 mL/min/1.7 3 m2 TOMY SAHU (VASHTI) Comment: Interpretive Data Reference Interval Normal ?>/= 90 mL/min/1.73m2 Mildly decreased* ? 60 - 89 mL/min/1.73m2 Mildly to moderately decreased ?45 - 59 mL/min/1.73m2 Moderately to severely decreased ??30 - 44 mL/min/1.73m2 Severely decreased ?15 - 29 mL/min/1.73m2 Kidney Failure ?< 15 ??mL/min/1.73m2 *Relative to young adult level If -[place] multiply value by 1.16. Estimated glomerular filtration [...] was last reviewed 2015. Blood specimen (specimen) 12/09/2017 3:53 AM CDT 12/09/2017 4:33 AM CDT Narrative TOMY [facility] (VASHTI) - 12/09/2017 6:44 AM CDT Janie Cisneros MD LAB BLOOD ORDERABLES Fin al Result TOMY SAHU (FARGO) 1 [facility] [place] [address] * Differential, auto (12/09/2017 3:53 AM CDT) Neutrophil abs 3.9 1.7 - 6.5 K/cumm [facility] ([place]HTI) Imm gran abs 0.1 0.0 - 0.1 K/cumm [facility] ([place]) Lymphocyte abs 2.3 0.8 - 3.3 K/cumm [facility] ([place]) Monocyte abs 0.6 0.2 - 0.8 K/cumm [facility] ([place]) Eosinophil abs 0.0 0.0 - 0.5 K/cumm [facility] ([place]) Basophil abs 0.0 0.0 - 0.1 K/cumm [facility] ([place]HT[place]) Neutrophil pct 57.0 % [facility] (VASHTI) Comment: Interpretive Data Percent cell count reference ranges are not reported, since discordance with absolute values may lead to misinterpretation of CBC data. Current Interpretive Data was last revised on 2017. Imm gran pct 0.9 % [facility] ([place]HTI) Comment: Interpretive Data Percent cell count reference ranges are not reported, since discordance with absolute values may lead to misinterpretation of CBC data. Current Interpretive Data was last revised on 2017. Lymphocyte pct 33.7 % [facility] ([place]HTI) Comment: Interpretive Data Percent cell count reference ranges are not reported, since discordance with absolute values may lead to misinterpretation of CBC data. Current Interpretive Data was last revised on 2017. Monocyte pct 8.0 % [facility] ([place]) Comment: Interpretive Data [...] last revised on 2017. Blood specimen (specimen) 12/09/2017 3:53 AM CDT 12/09/2017 4:33 AM CDT Narrative [facility] (VASHTI) - 12/09/2017 4:38 AM CDT Janie Cisneros MD LAB BLOOD ORDERABLES Fin al Result Performing Organization Address [facility]/ZIP Co de Phone Number TOMY [facility] (VASHTI) 1 [facility] [place] [address] * Magnesium (12/09/2017 3:53 AM CDT) Magnesium 1.6 1.6 - 2.4 mg/dL TOMY [facility] ([place]ASHTI) Blood specimen (specimen) 12/09/2017 3:53 AM CDT 12/09/2017 4:33 AM CDT Narrative [facility] (VASHTI) - 12/09/2017 6:44 AM CDT Janie Cisneros MD LAB BLOOD ORDERABLES Fin al Result TOMY [facility] ([place]) 1 [facility] [place] [address] * (ABNORMAL) Renal function panel (12/09/2017 3:53 AM CDT) Sodium 132(L) 135 - 145 mmol/L TOMY [facility] (VASHTI) [...] - 1.10 mg/dL [facility] ([place]) Glucose 211(H) 70 - 199 mg/dL [facility] ([place]HT[place]) [...] - 4.5 mg/dL [facility] ([place]) Albumin 3.7 3.5 - 5.0 g/dL [facility] ([place]) Blood specimen (specimen) 12/09/2017 3:53 AM CDT 12/09/2017 4:33 AM CDT Narrative [facility] ([place]HTI) - 12/09/2017 6:44 AM CDT us Janie Cisneros MD LAB BLOOD ORDERABLES Fin al Result TOMY SAHU (VASHTI) 1 [facility] Department [place] [address] * (ABNORMAL) CBC with auto differential (12/09/2017 3:53 AM CDT) WBC 6.9 3.8 - 9.9 K/cumm [facility] ([place]) Hgb 11.9 11.9 - 15.5 g/dL [facility] ([place]) Hct 35.5(L) 35.6 - 45.5 % [facility] (AVSHTI) Plt 338 150 - 400 K/cumm [facility] ([place]) MPV 8.9(L) 9.1 - 12.3 fL [facility] ([place]) RBC 4.31 3.90 - 5.20 M/cumm [facility] ([place]) MCV 82.4 81.3 - 96.4 fL [facility] ([place]) MCH 27.6 27.1 - 33.3 pg [facility] ([place]) MCHC 33.5 32.3 - 35.7 g/dL [facility] ([place]) RDW CV 13.2 11.1 - 14.9 % [facility] ([place]) RDW SD 40.0 35.7 - 48.1 fL [facility] ([place]) NRBC abs 0.00 0.00 - 0.01 K/cumm [facility] ([place]) Blood specimen (specimen) 12/09/2017 3:53 AM CDT 12/09/2017 4:33 AM CDT Narrative [facility] ([place]HTI) - 12/09/2017 4:38 AM CDT us Janie Cisneros MD LAB BLOOD ORDERABLES Fin al Result TOMY [facility] ([place]HTI) 1 [facility] [place] [address] * Direct antiglobulin test (12/09/2017 3:53 AM CDT) ESTER Poly Interp Negative [facility] ([place]) Blood specimen (specimen) 12/09/2017 3:53 AM CDT 12/09/2017 4:33 AM CDT Narrative [facility] ([place]HTI) - 12/09/2017 5:38 AM CDT Janie Cisneros MD LAB BLOOD BANK TEST ORDE DILAN Final Result Performing Organization Address [facility]/ZIP Co de Phone Number TOMY SAHU (FARGO) [address] [place] [address] * Folate (12/09/2017 3:53 AM CDT) Folic acid 7.4 >=3.1 ng/mL TOMY [facility] ([place]ASHTI) Comment: Interpretive Data >3 ?Normal 2.5 - 3.0 Indeterminate <2.5 ?Deficient Current interpretive data was last reviewed on 08/26/2015. Testing performed by: [facility], [address] [place] [address]., [id number] Blood specimen (specimen) 12/09/2017 3:53 AM CDT 12/09/2017 11:06 AM CDT Narrative TOMY [facility] (VASHTI) - 12/09/2017 11:48 AM CDT Janie Cisneros MD LAB BLOOD ORDERABLES Fin al Result Performing Organization Address [facility] Co de Phone Number TOMY SAHU (FARGO) 1 [facility] [place] [address] * Vitamin B12 (12/09/2017 3:53 AM CDT) Vitamin B12 521 180 - 920 pg/mL TOMY [facility] ([place]ASHTI) Comment: Interpretive Data Reference Interval (greater than 1 year of age) Normal: ? 180 - 920 pg/ml Indeterminate: ??145 - 180 pg/ml Deficient: ? <145 pg/ml Current Interpretive Data was last revised on 2015 Testing performed by: [facility], [address] [place] [address], [place]., [address] Blood specimen (specimen) 12/09/2017 3:53 AM CDT 12/09/2017 11:06 AM CDT Narrative TOMY [facility] (VASHTI) - 12/09/2017 11:47 AM CDT Janie Cisneros MD LAB BLOOD ORDERABLES Fin al Result Performing Organization Address City/[facility]/ZIP Co de Phone Number TOMY SAHU (FARGO) 1 [facility] [place] [address] * (ABNORMAL) Reticulocyte Count (12/09/2017 3:53 AM CDT) Retics, absolute 0.086 0.020 - 0.087 M/cumm TOMY [facility] ([place]) Retics 2.0 0.4 - 2.9 % [facility]Y [facility] ([place]) Reticulocyte Hgb 28.4(L) 30.5 - 38.0 pg TOMY SAHU ([place]) Blood specimen (specimen) 12/09/2017 3:53 AM CDT 12/09/2017 4:34 AM CDT Narrative TOMY SAHU ([place]) - 12/09/2017 4:44 AM CDT Janie Cisneros MD LAB BLOOD ORDERABLES Fin al Result Performing Organization Address [facility]/ZIP Co de Phone Number TOMY SAHU (FARGO) 1 [facility] [place] [address] * Lactate dehydrogenase (LD) (12/09/2017 3:53 AM CDT) Lactate dehydrogenase (LDH) 158 100 - 250 Units/L TOMY SAHU (FARGO) Comment:Hemolysis present. R esults may be affected. Blood specimen (specimen) 12/09/2017 3:53 AM CDT 12/09/2017 4:33 AM CDT Narrative TOMY SAHU ([place]) - 12/09/2017 6:44 AM CDT Janie Cisneros MD LAB BLOOD ORDERABLES Fin al Result TOMY SAHU ([place]AR[place]) 1 [facility] [place] [address] * Ferritin (12/09/2017 3:53 AM CDT) Ferritin 28 15 - 150 ng/mL [facility] ([place]) Blood specimen (specimen) 12/09/2017 3:53 AM CDT 12/09/2017 4:33 AM CDT Narrative [facility] ([place]HT[place]) - 12/09/2017 6:44 AM CDT Janie Cisneros MD LAB BLOOD ORDERABLES Fin al Result [facility] ([place]) 1 [facility] [place] [address] * Iron profile (12/09/2017 3:53 AM CDT) Iron 112 35 - 145 mcg/dL [facility] ([place]) UIBC 232 110 - 350 mcg/dL [facility] ([place]) TIBC 344 220 - 420 mcg/dL [facility] ([place]) Iron saturation 33 15 - 50 % [facility] ([place]) Blood specimen (specimen) 12/09/2017 3:53 AM CDT 12/09/2017 4:33 AM CDT Narrative [facility] ([place]HTI) - 12/09/2017 6:44 AM CDT Janie Cisneros MD LAB BLOOD ORDERABLES Fin al Result Performing Organization Address City/[facility]/ZIP Co de Phone Number [facility] ([place]HTI) 1 [facility] [place] [address] * Phosphorus (12/09/2017 3:50 AM CDT) Phosphorus, pl 2.3 2.3 - 4.5 mg/dL [facility] ([place]) Blood specimen (specimen) 12/09/2017 3:50 AM CDT 12/09/2017 8:12 AM CDT Narrative [facility] ([place]HTI) - 12/09/2017 8:21 AM CDT Janie Cisneros MD LAB BLOOD ORDERABLES Fin al Result TOMY SAHU (VASHTI) 1 [facility] [place] [address] * Magnesium (12/09/2017 3:50 AM CDT) Magnesium 1.6 1.6 - 2.4 mg/dL TOMY SAHU ([place]) Blood specimen (specimen) 12/09/2017 3:50 AM CDT 12/09/2017 8:12 AM CDT Narrative TOMY SAHU (VASHTI) - 12/09/2017 8:21 AM CDT Janie Cisneros MD LAB BLOOD ORDERABLES Fin al Result Performing Organization Address [facility] Co de Phone Number TOMY SAHU (FARGO) [address] [place] [address] [place] [address] * (ABNORMAL) Beta-hydroxybutyrate (12/09/2017 3:50 AM CDT) Beta-Hydroxybu tyrate 7.40(H) 0.00 - 0.40 mmol/L TOMY SAHU (VASHTI) Comment:Testing performed by : [facility], [address] [place] [address]., [address] Blood specimen (specimen) 12/09/2017 3:50 AM CDT 12/09/2017 11:06 AM CDT Narrative TOMY SAHU (VASHTI) - 12/09/2017 11:39 AM CDT Janie iCsneros MD LAB BLOOD ORDERABLES Fin al Result TOMY SAHU ([place]) 1 [facility] [place] [address] * (ABNORMAL) POCT glucose (12/09/2017 2:16 AM CDT) Glucose, POC 195(H) 71 - 98 mg/dL TOMY SAHU (VASHTI) Blood specimen (specimen) 12/09/2017 2:16 AM CDT 12/09/2017 2:16 AM CDT Narrative TOMY SAHU (VASHTI) - 12/09/2017 2:18 AM CDT us Janie Cisneros MD LAB POCT ORDERABLES - DE VICE Final Result Performing Organization Address City/[facility]/ZIP Co de Phone Number TOMY SAHU (F[place]) 1 [facility] Department [place] [address] * ECG 12 lead (12/08/2017 11:01 PM CDT) Pathologist [facility] Patient age 22 years [facility] Interpretation Text SINUS TACHYCARDIABORDERLINE RIGHT AXIS DEVIATIONNONSPECIFIC T-WAVE ABNORMALITYABNORMAL RHYTHM ECGNO PREVIOUS TRACING [facility] Comment:Physician Interprete r Dr. Dung Randall M.D. Ventricular Rate EKG/Min 137 /min [facility] P Wave Duration 117 ms [facility] QRS-Interval (MSEC) 76 ms [facility] IN-Interval (MSEC) 131 ms [facility] QT Interval 278 ms [facility] QTc 412 ms [facility] QTC Interval ms [facility] P [place] 80 deg [facility] QRS [place] 94 deg [facility] T [place] 21 deg [facility] 12/08/2017 11:0 1 PM CDT us Ayana Prado MD ECG ORDERABLES Final Result Performing Organization Address City/[facility]/ZIP Co de Phone Number [facility] * (ABNORMAL) POCT glucose (12/08/2017 11:01 PM CDT) Glucose, POC 214(H) 71 - 98 mg/dL TOMY SAHU (VASHTI) Blood specimen (specimen) 12/08/2017 11:01 PM CDT 12/08/2017 11:01 PM CDT Narrative TOMY SAHU (VASHTI) - 12/08/2017 11:06 PM CDT Janie Cisneros MD LAB POCT ORDERABLES - DE VICE Final Result Performing Organization Address City/[facility] Co de Phone Number TOMY OwensFARGO) [address] [place] [address] * (ABNORMAL) POCT glucose (12/08/2017 10:12 PM CDT) Glucose, POC 170(H) 71 - 98 mg/dL [facility] ([place]) Blood specimen (specimen) 12/08/2017 10:12 PM CDT 12/08/2017 10:12 PM CDT Narrative TOMY [facility] (VASHTI) - 12/08/2017 10:13 PM CDT us Janie Cisneros MD LAB POCT ORDERABLES - DE VICE Final Result Performing Organization Address [facility] Co de Phone Number TOMY SAHU ([place]) [address] [place] [address] [place] [address] * (ABNORMAL) Blood gas, venous (12/08/2017 9:19 PM CDT) pH, Venous 7.30(L) 7.32 - 7.43 [facility] ([place] PCO2, Venous 25(L) 40 - 50 mmHg TOMY [facility] ([place]) PO2, Venous 124 mmHg CERTOSHA A ([place]) Comment: Interpretive Data No Reference Range Established Current Interpretive Data was last revised on 2017. HCO3 Venous, Calculated 12(L) 20 - 30 mmol/L [facility] ([place] BE, venous -13 mmol/L [facility] ([place]) Comment: Interpretive Data No Reference Range Established Current Interpretive Data was last revised on 2017. Blood specimen (specimen) 12/08/2017 9:19 PM CDT 12/08/2017 9:22 PM CDT Narrative [facility] (VASHTI) - 12/08/2017 9:26 PM CDT Told daytime respiratory therapist to do VBG instead of ABG it has not been done yet please do it Janie Cisneros MD LAB BLOOD ORDERABLES Fin al Result TOMY [facility]HU ([place]) [address] [place] [address] * (ABNORMAL) POCT glucose (12/08/2017 4:19 PM CDT) Glucose, POC 202(H) 71 - 98 mg/dL TOMY SAHU ([place]) Blood specimen (specimen) 12/08/2017 4:19 PM CDT 12/08/2017 4:19 PM CDT Narrative TOMY SAHU ([place]I) - 12/08/2017 4:19 PM CDT Janie Cisneros MD LAB POCT ORDERABLES - DE VICE Final Result Performing Organization Address [facility] Co de Phone Number TOMY SAHU ([place]) [address] [place] [address] * (ABNORMAL) D-dimer, quantitative (12/08/2017 1:49 PM CDT) [facility] D-dimer <150(L) 150 - 230 ng/mL D-DU TOMY SAHU ([place]) Comment: Interpretive Data This D-dimer test is approved by the FDA to exclude suspected PE and DVT in outpatients when the result is <230 ng/mL in conjunction with a pre-test probability score of low or moderate using the Wells criteria. Current Interpretive Data was last revised on 2014. Blood specimen (specimen) 12/08/2017 1:49 PM CDT 12/08/2017 1:54 PM CDT Narrative TOMY SAHU ([place]HTI) - 12/08/2017 2:12 PM CDT Janie Cisneros MD LAB BLOOD ORDERABLES Fin al Result TOMY SAHU ([place]) 1 [facility] [place] [address] * (ABNORMAL) POCT glucose (12/08/2017 11:50 AM CDT) Glucose, POC 198(H) 71 - 98 mg/dL [facility]OMY [facility] ([place]) Blood specimen (specimen) 12/08/2017 11:50 AM CDT 12/08/2017 11:50 AM CDT Narrative TOMY [facility] ([place]) - 12/08/2017 12:02 PM CDT us Janie Cisneros MD LAB POCT ORDERABLES - DE VICE Final Result Performing Organization Address [facility]/ZIP Co de Phone Number TOMY SAHU ([place]) 1 [facility] [place] [address] * (ABNORMAL) POCT glucose (12/08/2017 6:17 AM CDT) Glucose, POC 193(H) 71 - 98 mg/dL TOMY SAHU ([place]I) Blood specimen (specimen) 12/08/2017 6:17 AM CDT 12/08/2017 6:17 AM CDT Narrative TOMY [facility] ([place]) - 12/08/2017 6:19 AM CDT us Rayo Carlisle MD LAB POCT ORDERABLES - DEVICE Fin al Result Performing Organization Address City/[facility]/ZIP Co de Phone Number TOMY SAHU ([place]) 1 [facility] [place] [address] * eGFR (12/08/2017 3:36 AM CDT) eGFR >60 mL/min/1.7 3 m2 TOMY SAHU ([place]) Comment: Interpretive Data Reference Interval Normal ?>/= 90 mL/min/1.73m2 Mildly decreased* ? 60 - 89 mL/min/1.73m2 Mildly to moderately decreased ?45 - 59 mL/min/1.73m2 Moderately to severely decreased ??30 - 44 mL/min/1.73m2 Severely decreased ?15 - 29 mL/min/1.73m2 Kidney Failure ?< 15 ??mL/min/1.73m2 *Relative to young adult level If -[place] multiply value by 1.16. Estimated glomerular filtration [...] was last reviewed 2015. Blood specimen (specimen) 12/08/2017 3:36 AM CDT 12/08/2017 4:01 AM CDT Narrative TOMY SAHU (VASHTI) - 12/08/2017 5:06 AM CDT us Marylou Hastings LAB BLOOD ORDERABLES Fi nal Result TOMY SAHU (FARGO) 1 [facility] Department [place] [address] * TSH reflex to free T4 (12/08/2017 3:36 AM CDT) TSH 1.37 0.30 - 5.00 mcIUnit/mL TOYM SAHU (VASHTI) Blood specimen (specimen) 12/08/2017 3:36 AM CDT 12/08/2017 6:39 AM CDT Narrative TOMY SAHU (VASHTI) - 12/08/2017 7:10 AM CDT us Ayana Prado MD LAB BLOOD ORDERABLES Final Resul t TOMY SAHU (VASHTI) 1 [facility] Department [place] [address] * (ABNORMAL) Differential, auto (12/08/2017 3:36 AM CDT) Neutrophil abs 4.5 1.7 - 6.5 K/cumm [facility] ([place]) Imm gran abs 0.0 0.0 - 0.1 K/cumm [facility] ([place]) Lymphocyte abs 3.4(H) 0.8 - 3.3 K/cumm [facility] ([place]) Monocyte abs 0.5 0.2 - 0.8 K/cumm [facility] ([place]) Eosinophil abs 0.0 0.0 - 0.5 K/cumm [facility] ([place]) Basophil abs 0.0 0.0 - 0.1 K/cumm [facility] ([place]) Neutrophil pct 53.1 % [facility] ([place]) Comment: Interpretive [...] was last revised on 2017. Lymphocyte pct 40.0 % [facility] (VASHTI) Comment: Interpretive Data Percent cell count reference ranges are not reported, since discordance with absolute values may lead to misinterpretation of CBC data. Current Interpretive Data was last revised on 2017. Monocyte pct 6.2 % [facility] (VASHTI) Comment: Interpretive Data [...] last revised on 2017. Blood specimen (specimen) 12/08/2017 3:36 AM CDT 12/08/2017 4:01 AM CDT Narrative [facility] ([place]) - 12/08/2017 4:07 AM CDT us Marylou Sheatk LAB BLOOD ORDERABLES Fi nal Result [facility] ([place]ASHT[place]) 1 [facility] [place] [address] * (ABNORMAL) Comprehensive metabolic panel (12/08/2017 3:36 AM CDT) Sodium 135 135 - 145 [...] 2017. Calcium 8.0(L) 8.5 - 10.3 mg/dL [facility] ([place]) Bilirubin, total 0.5 0.1 - 1.2 mg/dL [facility] ([place]) Protein, pl 5.1(L) 6.5 - 8.5 g/dL [facility] ([place]) Albumin 3.0(L) 3.5 - 5.0 g/dL [facility] ([place]) Alk phos 52 40 - 130 Units/L [facility] ([place]) ALT 6(L) 7 - 45 Units/L [facility] ([place]) AST 12 10 - 45 Units/L [facility] ([place]) Comment:Hemolysis present. R esults may be affected. Blood specimen (specimen) 12/08/2017 3:36 AM CDT 12/08/2017 4:01 AM CDT Narrative [facility] ([place]) - 12/08/2017 5:06 AM CDT Marylou Shea LAB BLOOD ORDERABLES nal Result [facility] ([place]HT[place]) 1 [facility] Department of Laboratories [place], [place] [id number] * (ABNORMAL) CBC with auto differential (12/08/2017 3:36 AM CDT) WBC 8.6 3.8 - 9.9 K/cumm [facility] ([place]) Hgb 10.4(L) 11.9 - 15.5 g/dL [facility] ([place]) Hct 31.5(L) 35.6 - 45.5 % [facility] ([place]) Plt 289 150 - 400 K/cumm [facility] ([place]) MPV 9.3 9.1 - 12.3 fL [facility] ([place]) RBC 3.72(L) 3.90 - 5.20 M/cumm [facility] ([place]) MCV 84.7 81.3 - 96.4 fL [facility] ([place]) MCH 28.0 27.1 - 33.3 pg [facility] ([place]) MCHC 33.0 32.3 - 35.7 g/dL [facility] ([place]) RDW CV 13.4 11.1 - 14.9 % TOMY SAHU (VASHTI) RDW SD 41.4 35.7 - 48.1 fL TOMY [facility] (VASHTI) NRBC abs 0.00 0.00 - 0.01 K/cumm TOMY SA[facility] (VASHTI) Blood specimen (specimen) 12/08/2017 3:36 AM CDT 12/08/2017 4:01 AM CDT Narrative TOMY SA[facility] (VASHTI) - 12/08/2017 4:07 AM CDT Marylou Hastings LAB BLOOD ORDERABLES Fi nal Result TOMY SAHU (VASHTI) 1 [facility] [place] [address] * (ABNORMAL) POCT glucose (12/07/2017 11:47 PM CDT) Glucose, POC 223(H) 71 - 98 mg/dL TOMY SAHU (FARGO) Blood specimen (specimen) 12/07/2017 11:47 PM CDT 12/07/2017 11:47 PM CDT Narrative TOMY [facility] (VASHTI) - 12/07/2017 11:58 PM CDT Rayo Carlisle MD LAB POCT ORDERABLES - DEVICE Fin al Result Performing Organization Address City/[facility]/ZIP Co de Phone Number TOMY SAHU (VASHTI) 1 [facility] [place] [address] * (ABNORMAL) POCT glucose (12/07/2017 8:52 PM CDT) Glucose, POC 212(H) 71 - 98 mg/dL TOMY SAHU (VASHTI) Blood specimen (specimen) 12/07/2017 8:52 PM CDT 12/07/2017 8:52 PM CDT Narrative TOMY SAHU (VASHTI) - 12/07/2017 8:54 PM CDT Rayo Carlisle MD LAB POCT ORDERABLES - DEVICE Fin al Result Performing Organization Address City/[facility]/ZIP Co de Phone Number TOMY SAHU (VASHTI) 1 [facility] [place] [address] * (ABNORMAL) POCT glucose (12/07/2017 5:22 PM CDT) Glucose, POC 184(H) 71 - 98 mg/dL TOMY SAHU (F[place]GO) Blood specimen (specimen) 12/07/2017 5:22 PM CDT 12/07/2017 5:22 PM CDT Narrative TOMY SAHU (F[place]GO) - 12/07/2017 5:24 PM CDT Rayo Carlisle MD LAB POCT ORDERABLES - DEVICE Fin al Result Performing Organization Address [facility] Co de Phone Number TOMY SAHU (FARGO) 1 [facility] [place] [address] * (ABNORMAL) POCT glucose (12/07/2017 2:21 PM CDT) Glucose, POC 199(H) 71 - 98 mg/dL TOMY SAHU (F[place]GO) Blood specimen (specimen) 12/07/2017 2:21 PM CDT 12/07/2017 2:21 PM CDT Narrative TOMY SAHU (VASHTI) - 12/07/2017 2:26 PM CDT Rayo Carlisle MD LAB POCT ORDERABLES - DEVICE Fin al Result Performing Organization Address City/[facility]/ZIP Co de Phone Number TOMY SAHU (FARGO) 1 [facility] [place] [address] * (ABNORMAL) POCT glucose (12/07/2017 12:22 PM CDT) Glucose, POC 331(C) 71 - 98 mg/dL TOMY SAHU ([place]GO) Blood specimen (specimen) 12/07/2017 12:22 PM CDT 12/07/2017 12:22 PM CDT Narrative TOMY SAHU (VASHTI) - 12/07/2017 12:23 PM CDT Rayo Carlisle MD LAB POCT ORDERABLES - DEVICE Fin al Result Performing Organization Address City/[facility]/ZIP Co de Phone Number OTMY SAHU (VASHTI) 1 [facility] [place] [address] * (ABNORMAL) POCT glucose (12/07/2017 7:35 AM CDT) Glucose, POC 230(H) 71 - 98 mg/dL TOMY SAHU (VASHTI) Blood specimen (specimen) 12/07/2017 7:35 AM CDT 12/07/2017 7:35 AM CDT Narrative TOMY SAHU (VASHTI) - 12/07/2017 7:36 AM CDT Rayo Carlisle MD LAB POCT ORDERABLES - DEVICE Fin al Result Performing Organization Address [facility] Co de Phone Number TOMY SAHU (VASHTI) 1 [facility] [place] [address] * (ABNORMAL) POCT glucose (12/07/2017 5:30 AM CDT) Glucose, POC 286(H) 71 - 98 mg/dL TOMY SAHU (VASHTI) Blood specimen (specimen) 12/07/2017 5:30 AM CDT 12/07/2017 5:30 AM CDT Narrative TOMY SAHU (VASHTI) - 12/07/2017 5:38 AM CDT Marylou Hastings LAB POCT ORDERABLES - D LENA Final Result TOMY SAHU (VASHTI) 1 [facility] [place] [address] * (ABNORMAL) POCT glucose (12/07/2017 4:27 AM CDT) Glucose, POC 298(H) 71 - 98 mg/dL TOMY SAHU (VASHTI) Blood specimen (specimen) 12/07/2017 4:27 AM CDT 12/07/2017 4:27 AM CDT Narrative ASHLEYTOSHA SAHU (VASHTI) - 12/07/2017 4:46 AM CDT [facility] LAB POCT ORDERABLES - D EVICE Final Result Performing Organization Address [facility] Co de Phone Number TOMY SAHU (VASHTI) 1 [facility] [place] [address] * (ABNORMAL) Beta-hydroxybutyrate (12/07/2017 3:52 AM CDT) Pathologist [facility] Beta-Hydroxybu tyrate 2.70(H) 0.00 - 0.40 mmol/L TOMY SAHU (FARGO) Comment:Testing performed by : [facility], [address] [place] [address], [facility] Blood specimen (specimen) 12/07/2017 3:52 AM CDT 12/07/2017 9:40 AM CDT Narrative TOMY LUIS ALBERTO (VASHTI) - 12/07/2017 10:01 AM CDT [facility] LAB BLOOD ORDERABLES Fi nal Result Performing Organization Address [facility]/ZIP Co de Phone Number ASHLEYTOSHA SAHU (VASHTI) 1 [facility] [place] [address] * (ABNORMAL) Blood gas, venous (12/07/2017 3:52 AM CDT) pH, Venous 7.36 7.32 - 7.43 TOMY SAHU (VASHTI) PCO2, Venous 33(L) 40 - 50 mmHg TOMY SAHU (FARGO) PO2, Venous 173 mmHg TOMY Frost (FARGO) Comment: Interpretive Data No Reference Range Established Current Interpretive Data was last revised on 2017. HCO3 Venous, Calculated 19(L) 20 - 30 mmol/L [facility] ([place]HTI) BE, venous -5 mmol/L [facility] ([place]ASHTI) Comment: Interpretive Data No Reference Range Established Current Interpretive Data was last revised on 2017. Blood specimen (specimen) 12/07/2017 3:52 AM CDT 12/07/2017 4:18 AM CDT Narrative [facility] (VASHTI) - 12/07/2017 4:22 AM CDT [employer] LAB BLOOD ORDERABLES Fi nal Result TOMY [facility] (VASHTI) 1 [facility] [place] [address] * (ABNORMAL) POCT glucose (12/07/2017 3:24 AM CDT) Glucose, POC 236(H) 71 - 98 mg/dL [facility] ([place]HTI) Blood specimen (specimen) 12/07/2017 3:24 AM CDT 12/07/2017 3:24 AM CDT Narrative [facility] ([place]HTI) - 12/07/2017 3:29 AM CDT Marylou [facility] LAB POCT ORDERABLES - D EVICE Final Result TOMY SAHU (VASHTI) 1 [facility] [place] [address] * (ABNORMAL) POCT glucose (12/07/2017 2:23 AM CDT) Glucose, POC 210(H) 71 - 98 mg/dL TOMY [facility] (VASHTI) Blood specimen (specimen) 12/07/2017 2:23 AM CDT 12/07/2017 2:23 AM CDT Narrative [facility] ([place]HTI) - 12/07/2017 2:35 AM CDT [employer] LAB POCT ORDERABLES - D EVICE Final Result T[facility]Y [facility] ([place]ASHTI) 1 [facility] [place] [address] * hCG, urine, qualitative (12/07/2017 1:51 AM CDT) HCG, ur Negative Negative [facility] ([place]) Urine 12/07/2017 1:51 AM CDT 12/07/2017 1:59 AM CDT Narrative [facility] ([place]) - 12/07/2017 2:06 AM CDT [employer] LAB URINE ORDERABLES Fi nal Result Performing Organization Address [facility] Co de Phone Number TOMY SAHU (VASHTI) 1 [facility] [place] [address] * (ABNORMAL) Urinalysis reflex to microscopic and culture Urine (12/07/2017 1:51 AM CDT) Color, ur Yellow Yellow [facility] ([place]) Clarity, ur Clear Clear [facility] ([place]HTI) Specific gravity, ur 1.027(H) 1.010 - 1.025 [facility] ([place]) pH, urine 8.0 [facility] ([place]) Protein, ur ql Negative [...] ur Negative Negative [facility] ([place]) Urine 12/07/2017 1:51 AM CDT 12/07/2017 1:59 AM CDT Narrative [facility] ([place]) - 12/07/2017 2:06 AM CDT ?? Urine pH is affected by diet, medications, systemic acid-base disturbances, and renal tubular function. ??pH may affect urinary stone formation. ??For example, urine pH below 6.0 may help reduce the tendency for calcium phosphate stones and pH greater than 6.0 may reduce the tendency for uric acid stone formation. Source: [facility] [employer]. Last revised 05-13-2017 Marylou Hastings LAB MICROBIOLOGY - GENE RAL ORDERABLES Final Result TOMY [facility] (VASHTI) 1 [facility] Department [place] [address] * (ABNORMAL) POCT glucose (12/07/2017 1:11 AM CDT) Pathologist [facility] Glucose, POC 263(H) 71 - 98 mg/dL TOMY [facility] (FARGO) Blood specimen (specimen) 12/07/2017 1:11 AM CDT 12/07/2017 1:11 AM CDT Narrative TOMY [facility] (VASHTI) - 12/07/2017 1:16 AM CDT [employer] Unknown LAB POCT ORDERABLES - DEVICE F inal Result TOMY SAHU (FARGO) 1 [facility] [place] [address] * eGFR (12/06/2017 11:55 PM CDT) Pathologist [facility] eGFR >60 mL/min/1.7 3 m2 TOMY [facility] (VASHTI) Comment: Interpretive Data Reference Interval Normal ?>/= 90 mL/min/1.73m2 Mildly decreased* ? 60 - 89 mL/min/1.73m2 Mildly to moderately decreased ?45 - 59 mL/min/1.73m2 Moderately to severely decreased ??30 - 44 mL/min/1.73m2 Severely decreased ?15 - 29 mL/min/1.73m2 Kidney Failure ?< 15 ??mL/min/1.73m2 *Relative to young adult level If -[place] multiply value by 1.16. Estimated glomerular filtration [...] was last reviewed 2015. Blood specimen (specimen) 12/06/2017 11:55 PM CDT 12/07/2017 12:08 AM CDT Narrative [facility] ([place]HTI) - 12/07/2017 12:41 AM CDT Marylou Luis [facility] LAB BLOOD ORDERABLES nal Result TOMY [facility] ([place]) 1 [facility] [place] [address] * (ABNORMAL) Differential, auto (12/06/2017 11:55 PM CDT) Neutrophil abs 5.0 1.7 - 6.5 K/cumm [facility] ([place]HTI) Imm gran abs 0.0 0.0 - 0.1 K/cumm [facility] ([place]) Lymphocyte abs 0.7(L) 0.8 - 3.3 K/cumm [facility] ([place]) Monocyte abs 0.2 0.2 - 0.8 K/cumm [facility] ([place]) Eosinophil abs 0.0 0.0 - 0.5 K/cumm [facility] ([place]) Basophil abs 0.0 0.0 - 0.1 K/cumm [facility] ([place]) Neutrophil pct 85.0 % [facility]NE R [facility] (VASHTI) Comment: Interpretive [...] was last revised on 2017. Lymphocyte pct 11.4 % [facility] ([place]HTI) Comment: Interpretive Data Percent cell count reference ranges are not reported, since discordance with absolute values may lead to misinterpretation of CBC data. Current Interpretive Data was last revised on 2017. Monocyte pct 2.6 % [facility] ([place]HTI) Comment: Interpretive Data Percent cell [...] on 2017. Basophil pct 0.3 % [facility] (VAHSTI) Comment: Interpretive Data Percent cell count reference ranges are not reported, since discordance with absolute values may lead to misinterpretation of CBC data. Current Interpretive Data was last revised on 2017. Blood specimen (specimen) 12/06/2017 11:55 PM CDT 12/07/2017 12:08 AM CDT Narrative TOMY LUQUE) - 12/07/2017 12:10 AM CDT Marylou Hastings LAB BLOOD ORDERABLES Fi nal Result TOMY SAHU (VASHTI) 1 [facility] [place] [address] * Lipase (12/06/2017 11:55 PM CDT) Lipase 10 10 - 99 Units/L TOMY SAHU (VASHTI) Blood specimen (specimen) 12/06/2017 11:55 PM CDT 12/07/2017 12:08 AM CDT Narrative TOMY SAHU (VASHTI) - 12/07/2017 12:41 AM CDT Marylou Hastings LAB BLOOD ORDERABLES Fi nal Result TOMY SAHU (VASHTI) 1 [facility] [place] [address] * (ABNORMAL) Comprehensive metabolic panel (12/06/2017 11:55 PM CDT) Sodium 136 135 - 145 [...] - 1.10 mg/dL [facility] ([place]) Glucose 279(H) 70 - 199 mg/dL [facility] ([place]HT[place]) [...] - 8.5 g/dL [facility] ([place]) Albumin 4.2 3.5 - 5.0 g/dL [facility] ([place]) Alk phos 70 40 - 130 Units/L [facility] ([place]) ALT 8 7 - 45 Units/L [facility] ([place]HT[place]) AST 13 10 - 45 Units/L [facility] ([place]) Blood specimen (specimen) 12/06/2017 11:55 PM CDT 12/07/2017 12:08 AM CDT Narrative [facility] ([place]HTI) - 12/07/2017 12:41 AM CDT us Marylou Hastings LAB BLOOD ORDERABLES Fi nal Result ASHLEYNER [facility] (VASHTI) 1 [facility] [place] [address] * CBC with auto differential (12/06/2017 11:55 PM CDT) WBC 5.9 3.8 - 9.9 K/cumm [facility] ([place]) Hgb 13.1 11.9 - 15.5 g/dL [facility] ([place]HT[place]) Hct 38.8 35.6 - 45.5 % [facility] ([place]) Plt 382 150 - 400 K/cumm [facility] ([place]HT[place]) MPV 9.1 9.1 - 12.3 fL [facility] ([place]) RBC 4.77 3.90 - 5.20 M/cumm [facility] ([place]) MCV 81.3 81.3 - 96.4 fL [facility] ([place]HT[place]) MCH 27.5 27.1 - 33.3 pg [facility] ([place]HT[place]) MCHC 33.8 32.3 - 35.7 g/dL [facility] ([place]HTI) RDW CV 13.5 11.1 - 14.9 % [facility] ([place]) RDW SD 39.7 35.7 - 48.1 fL [facility] ([place]HTI) NRBC abs 0.00 0.00 - 0.01 K/cumm [facility] ([place]HTI) Blood specimen (specimen) 12/06/2017 11:55 PM CDT 12/07/2017 12:08 AM CDT Narrative [facility] ([place]ASHTI) - 12/07/2017 12:10 AM CDT us Marylou Hastings LAB BLOOD ORDERABLES Fi nal Result TOMY SAHU (VASHTI) 1 [facility] [place] [address] * (ABNORMAL) POCT glucose (12/06/2017 11:47 PM CDT) Glucose, POC 237(H) 71 - 98 mg/dL TOMY LUIS ALBERTO (VASHTI) Blood specimen (specimen) 12/06/2017 11:47 PM CDT 12/06/2017 11:47 PM CDT Narrative TOMY SAHU (VASHTI) - 12/06/2017 11:49 PM CDT us [employer] Unknown LAB POCT ORDERABLES - DEVICE F inal Result Performing Organization Address City/[facility]/ZIP Co de Phone Number TOMY SAHU (FARGO) 1 [facility] [place] [address] documented in this encounter Visit Diagnoses Diagnosis Intractable vomiting with nausea, unspecified vomiting type- Primary Type 1 diabetes mellitus with hyperglycemia (HCC) Sinus tachycardia Other specified cardiac dysrhythmias Acute gastroenteritis Other and unspecified noninfectious gastroenteritis and colitis Sinus tachycardia Other specified cardiac dysrhythmias Normocytic anemia Unspecified anemia Diabetic ketoacidosis without coma associated with type 1 diabetes mellitus (CMS/HCC) (HCC) documented in this encounter Administered Medications Inactive Administered Medications - up to 3 most recent administrations Medication Order MAR Action Action Date Dose Rate Site dextrose 5% infusion 100 mL/hr, intravenous, Continuous, Starting on Nurys 12/09/17 at 0830, Start when blood glucose less than 250 mg/dL and decrease rate of previous IV fluid infusion order. Notify MD when blood glucose less than 250 mg/dL and adjusting IV fluids. New Bag 12/09/2017 11:42 AM CDT 100 mL/hr 100 mL/hr dextrose 50% (concentrated solution) CONCENTRATED solution 25 g 25 g, intravenous, Every 15 min PRN, low blood sugar, blood glucose less than 50 mg/dL AND decreased level of consciousness, Starting on Wed12/09/17 at 0757, Give IV Push over 2 minutes., Indications: HypoglycemiaIndications :Hypoglycemia dilTIAZem (CARDIZEM) injection 10 mg 10 mg, intravenous, Once, On Wed12/08/17 at 1715, For 1 dose, Refrigerate Given 12/08/2017 5:04 PM CDT 10 mg enoxaparin (LOVENOX) syringe 40 mg 40 mg, subcutaneous, Daily (for enoxaparin), First dose on Wed12/09/17 at 2100, Indications: Deep Vein Thrombosis PreventionIndications:D eep Vein Thrombosis Prevention famotidine (PEPCID) tablet 20 mg 20 mg, oral, Daily, First dose on Wed12/09/17 at 0900 insulin glargine (LANTUS) pen injection 12 Units 12 Units, subcutaneous, Nightly, First dose on Wed12/08/17 at 2100, Do not mix with other insulins, Indications: Diabetes MellitusIndications:Abby betes Mellitus Given 12/08/2017 10:11 PM CDT 12 Units Right Lower Abdomen insulin lispro (HumaLOG) pen injection 1-2 Units 1-2 Units, subcutaneous, Every 6 hours scheduled, First dose on Wed12/07/17 at 0700, Blood Sugar Low Dose NPO patients 200 or less No Insulin 201 - 250 1 unit 251 - 299 2 units Greater than 299 Call MD for hyperglycemia management instructions Do NOT hold for NPO status., Indications: Diabetes MellitusIndications:Abby betes Mellitus Given 12/07/2017 11:53 PM CDT 1 Units Right Upper Arm Given 12/07/2017 12:30 PM CDT 2 Units L eft Upper Arm insulin lispro (HumaLOG) pen injection 1-5 Units 1-5 Units, subcutaneous, 3 times daily with meals, First dose on Wed12/08/17 at 1800, Blood Sugar Mid Dose meal time - PO patients 139 or less No insulin 140 - 175 1 unit 176 - 200 2 unit 201 - 250 3 units 251 - 299 5 units Greater than 299 Call MD for hyperglycemia management instructions Do NOT hold for NPO status., Indications: Diabetes MellitusIndications:Di abetes Mellitus Given 12/08/2017 5:15 PM CDT 3 Units Right Upper Arm insulin regular (HumuLIN R, NovoLIN R) 100 Units in sodium chloride 0.9% 100 mL (1 Units/mL) infusion 0-30 Units/hr (0-30 mL/hr), 1 units/mL, intravenous, Titrated, Starting on Wed12/09/17 at 0830, Until Wed12/09/17 at 1739, Indications: diabetic ketoacidosis, Do NOT administer insulin bolus or infusion until K greater than 3.5 mg/dL. Initial rate: 5.31 units/hour. (0.1 units/kg/hr- max 10 units per [...] IV pump prior to connecting to patient., STATIndications:diabet ic ketoacidosis Rate/Dose Change 12/09/2017 10:38 AM CDT 2.6 Units/hr 2.6 mL/hr New Bag 12/09/2017 9:35 AM CDT 5.3 Units/hr 5.3 mL/hr insulin regular (HumuLIN R, NovoLIN R) injection 5 Units 5 Units, intravenous, Once, On Wed12/07/17 at 0050, For 1 dose Given 12/07/2017 1:12 AM CDT 5 Units Lactated Ringer's (LR) infusion 75 mL/hr, intravenous, Continuous, Starting on Wed12/08/17 at 1545 New Bag 12/09/2017 6:48 AM CDT 75 mL/hr 75 mL/hr New Bag 12/08/2017 4:52 PM CDT 75 mL/hr 75 mL/hr LORazepam (ATIVAN) injection 1 mg 1 mg, intravenous, Once, On Wed12/07/17 at 0408, For 1 dose Given 12/07/2017 4:16 AM CDT 1 mg metoclopramide (REGLAN) injection 5 mg 5 mg, intravenous, Once, On Wed12/07/17 at 0233, For 1 dose Given 12/07/2017 2:42 AM CDT 5 mg metoprolol (LOPRESSOR) injection 2.5 mg 2.5 mg, intravenous, Once, On Wed12/07/17 at 1300, For 1 dose Given 12/07/2017 12:31 PM CDT 2.5 mg metoprolol (LOPRESSOR) tablet 12.5 mg 12.5 mg, oral, 2 times daily, First dose (after last modification) on Wed12/08/17 at 2100 Given 12/08/2017 10:06 PM CDT 12.5 mg ondansetron (ZOFRAN) injection 4 mg 4 mg (0.0881 mg/kg), intravenous, Once, On Wed12/06/17 at 2344, For 1 dose, Indications: Nausea, VomitingIndications:Nausea,Vomiti ng Given 12/07/2017 1:04 AM CDT 4 mg ondansetron (ZOFRAN) injection 4 mg 4 mg, intravenous, Every 6 hours PRN, nausea, vomiting, if not tolerating PO, Starting on Wed12/07/17 at 0614, Indications: Nausea and VomitingIndications:Nausea and Vomiting ondansetron ODT (ZOFRAN-ODT) disintegrating tablet 4 mg 4 mg, oral, Every 6 hours PRN, nausea, vomiting, Starting on Wed12/07/17 at 0614, Indications: Nausea and VomitingIndications:Nausea and Vomiting sodium chloride 0.9% bolus 1,000 mL 1,000 mL (22 mL/kg), intravenous, at 1,000 mL/hr, Administer over 1 Hours, Once, On Wed12/06/17 at 2344, For 1 dose New Bag 12/07/2017 1:04 AM CDT 1,000 mL 1000 mL/hr sodium chloride 0.9% bolus 1,000 mL 1,000 mL (22 mL/kg), intravenous, at 1,000 mL/hr, Administer over 1 Hours, Once, On Wed12/07/17 at 0009, For 1 dose New 12/07/2017 2:41 AM CDT 1,000 mL 1000 mL/hr sodium chloride 0.9% bolus 1,000 mL 1,000 mL, intravenous, at 1,000 mL/hr, Administer over 1 Hours, Once, On Wed12/07/17 at 0439, For 1 dose New 12/07/2017 4:42 AM CDT 1,000 mL 1000 mL/hr sodium chloride 0.9% bolus 1,000 mL 1,000 mL, intravenous, at 1,000 mL/hr, Administer over 1 Hours, Once, On Wed12/09/17 at 0830, For 1 dose New 12/09/2017 9:40 AM CDT 1,000 mL 1000 mL/hr sodium chloride 0.9% flush 5-10 mL 5-10 mL, intra-catheter, Every 12 hours scheduled, First dose on Wed12/09/17 at 1400, Flush volume based on line type, size, and protocol., Indications: FlushingIndications:Flushing sodium chloride 0.9% flush 5-20 mL 5-20 mL, intra-catheter, As needed, line care, with each use, Starting on Nurys 12/09/17 at 1322, Flush volume based on line type, size, and protocol., Indications: FlushingIndications:Flushing sodium chloride 0.9% infusion 75 mL/hr, intravenous, Continuous, Starting on Wed12/07/17 at 0353 New 12/08/2017 10:01 AM CDT 50 mL/hr 50 mL/hr Rate/Dose Change 12/08/2017 4:43 AM CDT 50 mL/hr 50 mL/h r New 12/07/2017 9:55 PM CDT 125 mL/hr 125 mL/hr sodium chloride 0.9% with potassium chloride 20 mEq/L premix infusion 125 mL/hr, intravenous, Continuous, Starting on Wed12/09/17 at 0900 New 12/09/2017 1:33 PM CDT 125 mL/hr 125 mL/hr documented in this encounter Discontinued Medications Medication Sig Discontinue Reason Start Date End Da te insulin glargine (LANTUS) 100 unit/mL injection Inject 12 Units under the skin nightly. Stop Taking at Discharge 12/09/2017 insulin lispro (HumaLOG) 100 unit/mL injection Inject under the skin 3 (three) times a day before meals. Stop Taking at Discharge 12/09/2017 documented as of this encounter Historical Medications * This list may reflect changes made after this encounter. insulin lispro (HumaLOG) 100 unit/mL injection Inject under the skin 3 (three) times a day before meals. 12/09/2017 insulin glargine (LANTUS) 100 unit/mL injection Inject 12 Units under the skin nightly. 12/09/2017 added in this encounter Active and Recently Administered Medications Times are shown in CDT. Scheduled Medication Order 12/07/2017 12/08/2017 12/09/2017 dilTIAZem (CARDIZEM) injection 10 mg (COMPLETED) 10 mg, intravenous, Once, On Wed12/08/17 at 1715, For 1 dose, Refrigerate 1704 (Given - Provider: Cathy Lopez, MARY) enoxaparin (LOVENOX) syringe 40 mg 40 mg, subcutaneous, Daily (for enoxaparin), First dose on Wed12/09/17 at 2100, Indications: Deep Vein Thrombosis Prevention famotidine (PEPCID) tablet 20 mg 20 mg, oral, Daily, First dose on Wed12/09/17 at 0900 1033 (Not Given - Provider: Mar Hope RN - Reason: Patient/family refused) insulin glargine (LANTUS) pen injection 12 Units (CANCELED) 12 Units, subcutaneous, Nightly, First dose on Wed12/08/17 at 2100, Do not mix with other insulins, Indications: Diabetes Mellitus 2211 (Given - Provider: Amanda Burnham RN) insulin lispro (HumaLOG) pen injection 1-2 Units (CANCELED) 1-2 Units, subcutaneous, Every 6 hours scheduled, First dose on Wed12/07/17 at 0700, Blood Sugar Low Dose NPO patients 200 or less No Insulin 201 - 250 1 unit 251 - 299 2 units Greater than 299 Call MD for hyperglycemia management instructions Do NOT hold for NPO status., Indications: Diabetes Mellitus 0840 (Not Given - Provider: Mar Hope RN - Reason: Other - Comment: not eating breakfast, not now )1230 (Given - Provider: Mar Hope RN)1731 (Not Given - Provider: Mar Hope RN - Reason: Order parameters not met)2353 (Given - Provider: Seng Jean RN) 0600 (Due)1156 (Not Given - Provider: Cathy Lopez RN - Reason: Order parameters not met) insulin lispro (HumaLOG) pen injection 1-5 Units (CANCELED) 1-5 Units, subcutaneous, 3 times daily with meals, First dose on Wed12/08/17 at 1800, Blood Sugar Mid Dose meal time - PO patients 139 or less No insulin 140 - 175 1 unit 176 - 200 2 unit 201 - 250 3 units 251 - 299 5 units Greater than 299 Call MD for hyperglycemia management instructions Do NOT hold for NPO status., Indications: Diabetes Mellitus 1715 (Given - Provider: Cathy Lopez RN) insulin regular (HumuLIN R, NovoLIN R) injection 5 Units (COMPLETED) 5 Units, intravenous, Once, On Wed12/07/17 at 0050, For 1 dose 0112 (Given - Provider: Peggy Lazcano RN) LORazepam (ATIVAN) injection 1 mg (COMPLETED) 1 mg, intravenous, Once, On Wed12/07/17 at 0408, For 1 dose 0416 (Given - Provider: Peggy Lazcano RN) metoclopramide (REGLAN) injection 5 mg (COMPLETED) 5 mg, intravenous, Once, On Wed12/07/17 at 0233, For 1 dose 0242 (Given - Provider: Peggy Lazcano RN) metoprolol (LOPRESSOR) injection 2.5 mg (COMPLETED) 2.5 mg, intravenous, Once, On Wed12/07/17 at 1300, For 1 dose 1231 (Given - Provider: Mar Hope RN) metoprolol (LOPRESSOR) tablet 12.5 mg (CANCELED) 12.5 mg, oral, 2 times daily, First dose (after last modification) on Wed12/08/17 at 2100 2206 (Given - Provider: Amanda Burnham RN) 1000 (Not Given - Provider: Mar Hope RN - Reason: Other - Comment: systolic bp low) ondansetron (ZOFRAN) injection 4 mg (COMPLETED) 4 mg (0.0881 mg/kg), intravenous, Once, On Wed12/06/17 at 2344, For 1 dose, Indications: Nausea, Vomiting 0104 (Given - Provider: Peggy Lazcano RN - Comment: difficulty starting iv) sodium chloride 0.9% bolus 1,000 mL (COMPLETED) 1,000 mL (22 mL/kg), intravenous, at 1,000 mL/hr, Administer over 1 Hours, Once, On Wed12/06/17 at 2344, For 1 dose 0104 (New Bag - Provider: Peggy Lazcano RN - Comment: Difficulty starting IV)0241 (Stopped - Provider: Peggy Lazcano RN) sodium chloride 0.9% bolus 1,000 mL (COMPLETED) 1,000 mL (22 mL/kg), intravenous, at 1,000 mL/hr, Administer over 1 Hours, Once, On Wed12/07/17 at 0009, For 1 dose 0241 (New Bag - Provider: Peggy Lazcano RN - Comment: Iv finished infusing)0410 (Stopped - Provider: Peggy Lazcano RN) sodium chloride 0.9% bolus 1,000 mL (COMPLETED) 1,000 mL, intravenous, at 1,000 mL/hr, Administer over 1 Hours, Once, On Wed12/07/17 at 0439, For 1 dose 0442 (New Bag - Provider: Peggy Lazcano RN)0541 (Stopped - Provider: Peggy Lazcano RN) sodium chloride 0.9% bolus 1,000 mL (COMPLETED) 1,000 mL, intravenous, at 1,000 mL/hr, Administer over 1 Hours, Once, On Wed12/09/17 at 0830, For 1 dose 0940 (New Bag - Provider: Mar Hope RN) sodium chloride 0.9% flush 5-10 mL 5-10 mL, intra-catheter, Every 12 hours scheduled, First dose on Wed12/09/17 at 1400, Flush volume based on line type, size, and protocol., Indications: Flushing 1340 (Not Given - Provider: Mar Hope RN - Reason: Other - Comment: just placed and fluids infusing) Continuous Medication Order 12/07/2017 12/08/2017 12/09/2017 dextrose 5% infusion 100 mL/hr, intravenous, Continuous, Starting on Nurys 12/09/17 at 0830, Start when blood glucose less than 250 mg/dL and decrease rate of previous IV fluid infusion order. Notify MD when blood glucose less than 250 mg/dL and adjusting IV fluids. 1142 (New Bag - Provider: Mar Hope RN)1430 (Stopped - Provider: Mar Hope RN) insulin regular (HumuLIN R, NovoLIN R) 100 Units in sodium chloride 0.9% 100 mL (1 Units/mL) infusion 0-30 Units/hr (0-30 mL/hr), 1 units/mL, intravenous, Titrated, Starting on Nurys 12/09/17 at 0830, Until Nurys 12/09/17 at 1739, Indications: diabetic ketoacidosis, Do NOT administer insulin bolus or infusion until K greater than 3.5 mg/dL. Initial rate: 5.31 units/hour. (0.1 units/kg/hr- max 10 units per [...] pump prior to connecting to patient., STAT 0935 (New Bag - Provider: Mar Hope RN)1038 (Rate/Dose Change - Provider: Mar Hope RN)1430 (Stopped - Provider: Mar Hope RN) Lactated Ringer's (LR) infusion (CANCELED) 75 mL/hr, intravenous, Continuous, Starting on Wed12/08/17 at 1545 1652 (New Bag - Provider: Cathy Lopez RN) 0648 (New Bag - Provider: Amanda Burnham RN) sodium chloride 0.9% infusion (CANCELED) 75 mL/hr, intravenous, Continuous, Starting on Wed12/07/17 at 0353 0416 (New Bag - Provider: Peggy Lazcano RN)0440 (Stopped - Provider: Peggy Lazcano RN)0541 (Restarted - Provider: Peggy Lazcano RN)1347 (Stopped - Provider: Mar Hope RN)1348 (New Bag - Provider: Mar Hope RN)2020 (Rate/Dose Verify - Provider: Seng Jean RN)2155 (New Bag - Provider: Seng Jean RN) 0443 (Rate/Dose Change - Provider: Seng Jean, MARY)1000 (Stopped - Provider: Cathy Lopez RN)1001 (New Bag - Provider: Cathy Lopez RN)1621 (Stopped - Provider: Cathy Lopez RN) sodium chloride 0.9% with potassium chloride 20 mEq/L premix infusion 125 mL/hr, intravenous, Continuous, Starting on Nurys 12/09/17 at 0900 1333 (New Bag - Provider: Mar Hope RN)1430 (Stopped - Provider: Mar Hope RN) PRN Medication Order 12/07/2017 12/08/2017 12/09/2017 dextrose (D10W) 10% bolus 250 mL 250 mL, intravenous, at 1,000 mL/hr, Administer over 15 Minutes, Every 15 min PRN, blood glucose less than 70 mg/dL and unable to swallow/take PO glucose/juice, Starting on Wed12/07/17 at 0614, Indications: Hypoglycemia dextrose (D10W) 10% bolus 250 mL 250 mL, intravenous, at 62.5 mL/hr, Administer over 4 Hours, Every 4 hours PRN, when tube feedings are held or interrupted AND patient is receiving basal insulin (Lantus, Levemir, NPH), Starting on Wed12/07/17 at 0614, To cover glucose from tube feeds, infuse [...] AND decreased level of consciousness, Starting on Wed12/09/17 at 0757, Give IV Push over 2 minutes., Indications: Hypoglycemia dextrose gel in packet 15 g 15 g, oral, Every 15 min PRN, low blood sugar, blood glucose less than 70 mg/dL, Starting on Wed12/07/17 at 0614, If patient is alert and able to eat/drink, give 15 gram glucose or one juice (4 fluid ounces) NOT ORANGE JUICE, Indications: Hypoglycemia glucagon injection 1 mg 1 mg, intramuscular, Every 30 min PRN, low blood sugar, blood glucose less than 70 mg/dL and no IV access and unable to take PO glucose/juice, Starting on Wed12/07/17 at 0614, Follow glucagon treatment with glucose treatment or IV dextrose as appropriate based on clinical status., Indications: Hypoglycemia ondansetron (ZOFRAN) injection 4 mg(Linked Group 1) 4 mg, intravenous, Every 6 hours PRN, nausea, vomiting, if not tolerating PO, Starting on Wed12/07/17 at 0614, Indications: Nausea and Vomiting ondansetron ODT (ZOFRAN-ODT) disintegrating tablet 4 mg(Linked Group 1) 4 mg, oral, Every 6 hours PRN, nausea, vomiting, Starting on Wed12/07/17 at 0614, Indications: Nausea and Vomiting sodium chloride 0.9% flush 5-20 mL 5-20 mL, intra-catheter, As needed, line care, with each use, Starting on Nurys 12/09/17 at 1322, Flush volume based on line type, size, and protocol., Indications: Flushing Linked Groups Order Group 1: ondansetron ODT (ZOFRAN-ODT) disintegrating tablet 4 mgJump to med 4 mg, oral, Every 6 hours PRN, nausea, vomiting, Starting on Wed12/07/17 at 0614, Indications: Nausea and Vomiting Or ondansetron (ZOFRAN) injection 4 mgJump to med 4 mg, intravenous, Every 6 hours PRN, nausea, vomiting, if not tolerating PO, Starting on Wed12/07/17 at 0614, Indications: Nausea and Vomiting documented in this encounter Orders Medications Ordered That Evan ht Not Have Been Administered Count Last Ordered Date First Ordered Date dextrose 50% (concentrated s olution) CONCENTRATED solution 25 g 3 12/09/2017 12/07/2017 enoxaparin (LOVENOX) syringe 40 mg 2 201712/08/2017 sodium chloride 0.9% flush 5-10 mL 1 2017 sodium chloride 0.9% flush 5-20 mL 1 2017 sodium chloride 0.9% infusion 1 12/09/2017 sodium phosphate 30 mmol in sodium chloride 0.9% 250 mL IVPB 1 12/09/2017 famotidine (PEPCID) tablet 20 mg 1 12/09/19 18 insulin lispro (HumaLOG) pen injection 1-3 Units 1 12/08/2017 metoprolol (LOPRESSOR) injection 5 mg 1 12/2017 metoprolol (LOPRESSOR) tablet 25 mg 1 12/08 dextrose (D10W) 10% bolus 250 mL 2 12/08/19 18 dextrose gel in packet 15 g 1 12/07/2017 glucagon injection 1 mg 1 12/07/2017 ondansetron (ZOFRAN) injection 4 mg 1 12/07 ondansetron ODT (ZOFRAN-ODT) disintegrating tablet 4 mg 2 12/07/2017 12/06/2017 Lab Orders Without Results Count Last Ordered D ate First Ordered Date POCT GLUCOSE DEVICE 18 12/09/2017 12/08/19 18 EKG Orders Without Results Count Last Ordered D ate First Ordered Date ECG 12-LEAD 2 12/08/2017 12/07/2017 Nursing Count Last Ordered Date First Orde red Date DISCHARGE INSTRUCTIONS 2 12/09/2017 FOLLOW UP PRIMARY PHYSICIAN 1 12/09/2017 FOLLOW UP WITH PROVIDER 1 12/09/[address] SEQUENTIAL COMPRESSION DEVICE 1 12/09 WEIGH PATIENT 1 12/09/2017 IV Count Last Ordered Date First Orde red Date INSERT PERIPHERAL IV 1 12/06/2017 Admission Count Last Ordered Date First Orde red Date ASSIGN PATIENT STATUS 3 12/09/20172017 Transfer Count Last Ordered Date First Orde red Date TRANSFER PATIENT 1 12/09/2017 CORE MEASURES Count Last Ordered Date First Ord ered Date REASON FOR NO VTE PROPHYLAXIS AT ADMISSION 1 12/07/2017 ADT Patient Update Count Last Ordered Date Firs t Ordered Date ED IP DECISION TO ADMIT 1 12/07/2017 documented in this encounter Care Teams Experience Planning Strategist Relationship Specialty Start Date End Date Jolanta Freeman MD PCP - General 02/15/17 12/06/17 Jolanta Freeman MD PCP - General 12/07/17 03/28/18 documented as of this encounter
--- OUTSIDE RECORDS SUMMARY | 2024-05-10 18:43 | XMS_ITS | Encounter Summary ---
Author Organization [facility] Facility Care Team Providers Care Pressure Welder Name Role Phone Unavailable Primary Care Provider Unavailabl e Encounter Details Date Type Department Care Team (Late st Contact Info) Description 07/01/2012 11:16 AM ECONOMIC RESEARCH ASSISTANT - 07/01/2012 11:59 PM ECONOMIC RESEARCH ASSISTANT [facility] [address] [facility] [id number] [place] [address] Type I diabetes mellitus (HCC) Social History Tobacco Use Types Packs/Day Years Used Date Smoking Tobacco: Never Assessed Comments Unknown Sex and Gender Information Value Date Recorded Sex Assigned at Not on file Legal Sex Female 3:13 AM ECONOMIC RESEARCH ASSISTANT Gender Identity Not on file Sexual Orientation Not on file documented as of this encounter Plan of Treatment Not on file documented as of this encounter Procedures Procedure Name Priority Date/Time Associated Diagnosis Comments SERUM IGG, QUANTITATIVE Routine 07/02/19 13 11:35 AM ECONOMIC RESEARCH ASSISTANT URINE MICROALBUMIN Routine 07/01/2012 5: 40 AM ECONOMIC RESEARCH ASSISTANT SERUM TISSUE TRANSGLUTAMINASE (TTG) AB Routine 07/01/2012 5:40 AM ECONOMIC RESEARCH ASSISTANT SERUM THYROXINE (T4), FREE Routine 07/01/2012 5:40 AM ECONOMIC RESEARCH ASSISTANT SERUM THYROXINE (T4) Routine 07/01/2012 5:40 AM ECONOMIC RESEARCH ASSISTANT SERUM THYROID-STIMULATING HORMONE (TSH) Routine 07/01/2012 5:40 AM ECONOMIC RESEARCH ASSISTANT SERUM LIPID PANEL Routine 07/01/2012 5:4 0 AM ECONOMIC RESEARCH ASSISTANT DISCHARGE LABORATORY CUMULATIVE REPORT Routine 07/01/2012 12:00 AM ECONOMIC RESEARCH ASSISTANT documented in this encounter Results * Serum IgG, quantitative (07/01/2012 11:35 AM ECONOMIC RESEARCH ASSISTANT) IgG 844.0 700.0 - 1450.0 mg/dl HISTORICAL RESULTS Serum 07/01/2012 11:3 5 AM ECONOMIC RESEARCH ASSISTANT Historical Provider LAB BLOOD ORDERABLES Chanell l Result Performing Organization Address [place]/[facility] Co de Phone Number HISTORICAL RESULTS * Urine microalbumin (07/01/2012 5:40 AM ECONOMIC RESEARCH ASSISTANT) Microalbumin <5.0 mcg/ml HISTORI MITZI RESULTS Comment:{Repeated and verifi ed.} Creatinine, ur 24.7 mg/dl HISTO RICAL RESULTS Microalbumin/crea t ratio N/A <=30 mcg/mg Cr HISTORICAL RESULTS Comment: Repeated and verified. Urine albumin:creatinine ratio <0. Unable to accurately determine ratio due to dilute urine. Urine 07/01/2012 5:40 AM ECONOMIC RESEARCH ASSISTANT Narrative HISTORICAL RESULTS - 07/01/2012 6:25 AM ECONOMIC RESEARCH ASSISTANT Expiration Date: LAB Frequency Standing Order? No us Historical Provider MD LAB BLOOD ORDERABLES Chanell l Result HISTORICAL RESULTS * Serum thyroxine (T4) (07/01/2012 5:40 AM ECONOMIC RESEARCH ASSISTANT) T4 6.9 4.5 - 12.0 mcg/dl HISTORICAL RESULTS Serum 07/01/2012 5:40 AM ECONOMIC RESEARCH ASSISTANT Narrative HISTORICAL RESULTS - 07/01/2012 6:33 AM ECONOMIC RESEARCH ASSISTANT Expiration Date: LAB Frequency Standing Order? No Historical Provider LAB BLOOD ORDERABLES Chanell betancourt Result Performing Organization Address [facility] de Phone Number HISTORICAL RESULTS * Serum thyroid-stimulating hormone (TSH) (07/01/2012 5:40 AM ECONOMIC RESEARCH ASSISTANT) TSH 1.76 0.35 - 5.50 mcIUnits/m l HISTORICAL RESULTS Comment: Interpretive Data: TSH concentration may range up to 100 mcIUnit/ml due to surge of TSH production on the first day of life and then fall gradually to adult levels by one month of age. Current [facility] data was last revised as of 09/14/2005. Serum 07/01/2012 5:40 AM ECONOMIC RESEARCH ASSISTANT Narrative HISTORICAL RESULTS - 07/01/2012 6:33 AM ECONOMIC RESEARCH ASSISTANT Expiration Date: LAB Frequency Standing Order? No Historical Provider LAB BLOOD ORDERABLES Chanell betancourt Result Performing Organization Address [facility] de Phone Number HISTORICAL RESULTS * Serum lipid panel (07/01/2012 5:40 AM ECONOMIC RESEARCH ASSISTANT) Cholesterol 151 mg/dl HISTORIC AL RESULTS Comment: Interpretive Data ? <4 yr : ??40 - 180 mg/dL ??4 yr - 16 yr : 100 - 200 mg/dL ??> or = 16 yr : ?Desirable: ??<200 mg/dL ?? Borderline High: ?? 200-239 mg/dL ? High: ??>240 mg/dL Literature Reference: National Cholesterol Education Program (NCEP) Expert Panel on Detection, Evaluation, and Treatment of High Blood Cholesterol in Adults (Adult Treatment Panel III). Circulation 2004; 110:227. Current interpretive data was last revised on 2009. Triglycerides 55 0 - 150 mg/dl HISTORICAL RESULTS Comment: Interpretive Data: ? <16 years: ?30-150 mg/dL > or = 16 years: Desirable: ?<150 ? mg/dL Borderline High: ?? 150-199 mg/dL High: ? >200 ? mg/dL Literature Reference: National Cholesterol Education Program (NCEP) Expert Panel on Detection, Evaluation, and Treatment of High Blood Cholesterol in Adults (Adult Treatment Panel III). ??Circulation 2004; 110:227. Current interpretive data was last revised on 2009. HDL 68 mg/dl HISTORICAL RESULTS Comment: Interpretive Data ?<16 yr: 35 - 75 mg/dL ??> or = 16 yr: ?Less that 40 mg/dL (milligrams/deciliter) - low; A major risk for heart disease. ?Greater than or equal to 60 mg/dL (milligrams/deciliter)- High; considered protective of heart disease. Literature Reference: 3rd Report of the National Cholesterol Education Program (NCEP) Expert Panel on Detection, Evaluation, and Treatment of High Blood Cholesterol in Adults (Adult Treatment Panel III). Circulation 2004; 110:227. Current interpretive data was last revised on 2009. LDL 72 mg/dl HISTORICAL RESULTS Comment: Interpretive Data ?<4 yr : 20 - 100 mg/dL ??4 yr - ??16 yr : 50 - 120 mg/dL ?? > or = 16 yr : ? Optimal:<100 ?? mg/dL ?Near Optimal: 100 - 129 mg/dL ?Borderline High: 130 - 159 mg/dL ? High:>160 ?? mg/dL Literature Reference: National Cholesterol Education Program (NCEP) Expert Panel on Detection, Evaluation, and Treatment of High Blood Cholesterol in Adults (Adult Treatment Panel III). Circulation 2004; 110:227. Current interpretive data was last revised on 2009. Chol/HDL ratio 2.2 HISTO RICAL RESULTS Serum 07/01/2012 5:40 AM ECONOMIC RESEARCH ASSISTANT Narrative HISTORICAL RESULTS - 07/01/2012 6:36 AM ECONOMIC RESEARCH ASSISTANT Expiration Date: LAB Frequency Standing Order? No Result [facility] Historical Provider LAB BLOOD ORDERABLES Chanell asia Result Performing Organization Address [facility] de Phone Number HISTORICAL RESULTS * Serum tissue transglutaminase (TTG) ab (07/01/2012 5:40 AM ECONOMIC RESEARCH ASSISTANT) TTG ab, IgA 2.9 0.0 - 19.9 units HISTORICAL RESULTS Serum 07/01/2012 5:40 AM ECONOMIC RESEARCH ASSISTANT Narrative HISTORICAL RESULTS - 07/01/2012 9:11 AM ECONOMIC RESEARCH ASSISTANT Expiration Date: LAB Frequency Standing Order? No Result [facility] Historical Provider LAB BLOOD ORDERABLES Chanell l Result Performing Organization Address [facility] de Phone Number HISTORICAL RESULTS * Serum thyroxine (T4), free (07/01/2012 5:40 AM ECONOMIC RESEARCH ASSISTANT) Free T4 1.09 0.80 - 1.80 ng/dl HISTORICAL RESULTS Comment: Interpretive data: Free T4 concentrations rise acutely to as high as 5 ng/dl on the first day of life following TSH surge and then decrease gradually to adult levels by one month of age. Current [facility] data was last revised on 05. Serum 07/01/2012 5:40 AM ECONOMIC RESEARCH ASSISTANT Narrative HISTORICAL RESULTS - 07/01/2012 6:33 AM ECONOMIC RESEARCH ASSISTANT Expiration Date: LAB Frequency Standing Order? No Result [facility] Historical Provider LAB BLOOD ORDERABLES Chanell l Result Performing Organization Address [facility] de Phone Number HISTORICAL RESULTS * Discharge Laboratory Cumulative Report (07/01/2012 12:00 AM ECONOMIC RESEARCH ASSISTANT) 07/01/2012 Narrative HISTORICAL RESULTS - 07/03/2012 2:33 AM ECONOMIC RESEARCH ASSISTANT ? [facility] ?Clinical Laboratories ? [address] ? [place] [address] Patient Name: ? KARINA FUCHS [facility] Rec Number: ?? [id number] Fin Number: ? [id number] Date: ? 1995 Sex/Age: ?Female 17 years Admit Date: ? 07/01/2012 Discharge Date: ?? 07/01/2012 Doctor: ? Kanchan Vigil Referring Doctor: Kanchan Vigil Facility: ? [facility] Location: ? OLAB Chart Printed: ?07/03/2012 2:33 AM ?* Abnormal ??C Critical ??f Footnote ??^ Corrected ??L Low ??H High ? i Interp Data ??@ Ref Lab ?Chart Type:Cumulative ?LIPIDS ?Test: ??Total Cholesterol i ??HDL Cholesterol i ? Reference: ? Units: ? mg/dL ? mg/dL 07/01/2012 ?? 11:40:27 ? 151 ?68 07/01/2012 11:40:27 Total Cholesterol: Interpretive Data ? <4 yr : ??40 - 180 mg/dL ??4 yr - 16 yr : 100 - 200 mg/dL ??> or = 16 yr : ?Desirable: ??<200 mg/dL ? Borderline High: ?? 200-239 mg/dL ? High: ??>240 mg/dL Literature Reference: National Cholesterol Education Program (NCEP) Expert Panel on Detection, Evaluation, and Treatment of High Blood Cholesterol in Adults (Adult Treatment Panel III). Circulation 2004; 110:227. Current interpretive data was last revised on 2009. 07/01/2012 11:40:27 HDL Cholesterol: Interpretive Data ?<16 yr: 35 - 75 mg/dL ??> or = 16 yr: ?Less that 40 mg/dL (milligrams/deciliter) - low; A major risk for heart disease. ?Greater than or equal to 60 mg/dL (milligrams/deciliter)- High; considered protective of heart disease. Literature Reference: 3rd Report of the National Cholesterol Education Program (NCEP) Expert Panel on Detection, Evaluation, and Treatment of High Blood Cholesterol in Adults (Adult Treatment Panel III). Circulation 2004; 110:227. Current interpretive data was last revised on 2009. 07/01/2012 11:40:27 ??Lipid Pnl SLC: Expiration Date: LAB Frequency Standing Order? No ?LIPIDS ?Test: ??Triglycerides i ??LDL Chol (Calc) i ? Reference: ?[0-150] ? Units: ? mg/dL ? mg/dL 07/01/2012 ?? 11:40:27 ?55 ?72 07/01/2012 11:40:27 Triglycerides: Interpretive Data: ? <16 years: ?30-150 mg/dL > or = 16 years: Desirable: ?<150 ? mg/dL Borderline High: ?? 150-199 mg/dL High: ? >200 ? mg/dL Literature Reference: National Cholesterol Education Program (NCEP) Expert Panel on Detection, Evaluation, and Treatment of High Blood Cholesterol in Adults (Adult Treatment Panel III). ??Circulation 2004; 110:227. Current interpretive data was last revised on 2009. 07/01/2012 11:40:27 LDL Chol (Calc): Interpretive Data ?<4 yr : 20 - 100 mg/dL ??4 yr - ??16 yr : 50 - 120 mg/dL ?? > or = 16 yr : ? Optimal:<100 ?? mg/dL ?Near Optimal: 100 - 129 mg/dL ?Borderline High: 130 - 159 mg/dL ? High:>160 ?? mg/dL Literature Reference: National Cholesterol Education Program (NCEP) Expert Panel on Detection, Evaluation, and Treatment of High Blood Cholesterol in Adults (Adult Treatment Panel III). Circulation 2004; 110:227. Current interpretive data was last revised on 2009. ?Test: ??Chol/HDL Ratio ? Reference: ? Units: 07/01/2012 ?? 11:40:27 ? 2.2 ?BLOOD HORMONES ?Test: ? TSH i ?Total T4 ? Reference: ??[0.35-5.50] ??[4.5-12.0] ? Units: ??mcIUnit/mL ? mcg/dL 07/01/2012 ?? 11:40:27 ? 1.76 ? 6.9 07/01/2012 11:40:27 TSH: Interpretive Data: TSH concentration may range up to 100 mcIUnit/ml due to surge of TSH production on the first day of life and then fall gradually to adult levels by one month of age. Current [facility] data was last revised as of 09/14/2005. 07/01/2012 11:40:27 ??TSH: Expiration Date: LAB Frequency Standing Order? No ?BLOOD HORMONES 07/01/2012 11:40:27 ??T4 Totl: Expiration Date: LAB Frequency Standing Order? No ?Test: ??Free T4 (Free Thyroxine) i ? Reference: ? [0.80-1.80] ? Units: ?ng/dL 07/01/2012 ?? 11:40:27 ?1.09 07/01/2012 11:40:27 Free T4 (Free Thyroxine): Interpretive data: Free T4 concentrations rise acutely to as high as 5 ng/dl on the first day of life following TSH surge and then decrease gradually to adult levels by one month of age. Current [facility] data was last revised on 05. 07/01/2012 11:40:27 ??T4 Free: Expiration Date: LAB Frequency Standing Order? No ? QUANTITATIVE URINE CHEMISTRY ?Test: ??Random Urine Creatinine ? Reference: ? Units: ? mg/dL 07/01/2012 ?? 11:40:27 ? 24.7 07/01/2012 11:40:27 ??Alb/Cr Ur Rnd: Expiration Date: LAB Frequency Standing Order? No ?Test: ??Random Urine Microalbumin ? Reference: ? Units: ? mcg/mL 07/01/2012 ?? 11:40:27 ?<5.0 ??f 07/01/2012 11:40:27 ??Random Urine Microalbumin: Repeated and verified. ?Test: ??Microalbumin_Creatinine Ratio ? Reference: ?[<=29.9] ? Units: ?mcg/mg Cr 07/01/2012 ?? 11:40:27 ? N/A ??f 07/01/2012 11:40:27 ??Microalbumin_Creatinine Ratio: Repeated and verified. Urine albumin:creatinine ratio <0. Unable to accurately determine ratio due to dilute urine. ?IMMUNOGLOBULINS ?Test: ?IgG ? Reference: ??[700.0-1,450.0] ? Units: ? mg/dL 07/01/2012 ?? 11:35:00 ?844.0 ?AUTOANTIBODIES ?Test: ??TTG-IgA Ab ? Reference: ??[0.0-19.9] ? Units: ?Units 07/01/2012 ?? 11:40:27 ? 2.9 07/01/2012 11:40:27 ??TTG-IgA Ab: Expiration Date: LAB Frequency Standing Order? No ?CANCELED ORDERS Drawn Date: ??Drawn Time: ??Test: ?Cancel Reason: 07/01/2012 ?? 11:40:27 ? Miscellaneous Referral (St. ?N[facility] Order Error ? [facility]) us Historical Provider MD LAB BLOOD ORDERABLES Chanell l Result HISTORICAL RESULTS documented in this encounter Visit Diagnoses Diagnosis Type I diabetes mellitus (HCC) Type I (juvenile type) diabetes mellitus without mention of complication, not stated as uncontrolled documented in this encounter
--- OUTSIDE RECORDS SUMMARY | 2024-05-10 18:43 | XMS_ITS | Encounter Summary ---
Author Organization [facility] Facility Care Team Providers Care Staffing Program Manager Name Role Phone Unavailable Primary Care Provider Unavailabl e Encounter Details Date Type Department Care Team (Late st Contact Info) Description 03/21/2011 12:40 AM GRAIN SPOUTER - 03/23/2011 6:08 PM GRAIN SPOUTER Hospital Encounter [facility] Krista Varela MD [address] [address] Tucker Shoemaker MD [address] [address] Type I diabetes mellitus (HCC); Family history of malignant neoplasm of trachea, bronchus, and lung; Family history of malignant neoplasm of gastrointestinal tract Social History Tobacco Use Types Packs/Day Years Used Date Smoking Tobacco: Never Assessed Comments Unknown Sex and Gender Information Value Date Recorded Sex Assigned at Not on file Legal Sex Female 3:13 AM GRAIN SPOUTER Gender Identity Not on file Sexual Orientation Not on file documented as of this encounter Last Filed Vital Signs Vital Sign Reading Time Taken Comments Blood Pressure 121/69 03/23/2011 7:45 AM GRAIN SPOUTER Pulse 73 03/23/2011 7:45 AM GRAIN SPOUTER Temperature - - Respiratory Rate - - Oxygen Saturation - - Inhaled Oxygen Concentration - - Weight 67.4 kg (148 lb 9.4 oz) 03/21/20 11 12:58 AM GRAIN SPOUTER Height 157.5 cm (5' 2.01 ) 03/21/2011 1 2:58 AM GRAIN SPOUTER Body Mass Index 27.17 03/21/2011 12:58 AM GRAIN SPOUTER Body Mass Index Percentile 94.06% 03/21 12:58 AM GRAIN SPOUTER Growth Chart: [facility] (Girls, 2- 20 Years) documented in this encounter Plan of Treatment Not on file documented as of this encounter Visit Diagnoses Diagnosis Type I diabetes mellitus (HCC) Type I (juvenile type) diabetes mellitus without mention of complication, not stated as uncontrolled Family history of malignant neoplasm of trachea, bronchus, and lung Family history of malignant neoplasm of gastrointestinal tract documented in this encounter
--- OUTSIDE RECORDS SUMMARY | 2024-05-10 18:43 | XMS_ITS | Encounter Summary ---
Author Organization [facility] Facility Care Team Providers Care It Telecom Technician Name Role Phone Unavailable Primary Care Provider Unavailabl e Encounter Details Date Type Department Care Team (Late st Contact Info) Description 07/10/2013 3:01 PM CDT - 07/10/2013 11:59 PM CDT Hospital Encounter [facility] Kanchan Hall MD [address] [facility] [id number] [place] [address] Type I diabetes mellitus (HCC) Social History Tobacco Use Types Packs/Day Years Used Date Smoking Tobacco: Never Assessed Comments Unknown Sex and Gender Information Value Date Recorded Sex Assigned at Not on file 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 Gender Identity Not on file Sexual Orientation Not on file documented as of this encounter Plan of Treatment Not on file documented as of this encounter Procedures Procedure Name Priority Date/Time Associated Diagnosis Comments SERUM TISSUE TRANSGLUTAMINASE (TTG) AB Routine 07/10/2013 10:48 AM CDT SERUM THYROXINE (T4), FREE Routine 07/10/2013 10:48 AM CDT SERUM THYROID-STIMULATING HORMONE (TSH) Routine 07/10/2013 10:48 AM CDT SERUM LIPID PANEL Routine 07/10/2013 10: 48 AM CDT DISCHARGE LABORATORY CUMULATIVE REPORT Routine 07/10/2013 12:00 AM CDT documented in this encounter Results * Serum thyroid-stimulating hormone (TSH) (07/10/2013 10:48 AM CDT) TSH 3.98 0.35 - 5.50 mcIUnits/m l HISTORICAL RESULTS Comment: Interpretive Data: TSH concentration may range up to 100 mcIUnit/ml due to surge of TSH production on the first day of life and then fall gradually to adult levels by one month of age. Current inter data was last revised as of 09/14/2005. Serum 07/10/2013 10:4 8 AM CDT Narrative HISTORICAL RESULTS - 07/10/2013 11:56 AM CDT Expiration Date: LAB Frequency Standing Order? No us Historical Provider LAB BLOOD ORDERABLES Chanell betancourt Result HISTORICAL RESULTS * Serum lipid panel (07/10/2013 10:48 AM CDT) Cholesterol 197 mg/dl HISTORIC AL RESULTS Comment: Interpretive Data [...] data was last revised on 2009. Triglycerides 64 0 - 150 mg/dl HISTORICAL RESULTS Comment: [...] data was last revised on 2009. HDL 95 mg/dl HISTORICAL RESULTS Comment: Interpretive Data ?<16 [...] data was last revised on 2009. LDL 89 mg/dl HISTORICAL RESULTS Comment: Interpretive Data ?<4 [...] was last revised on 2009. Chol/HDL ratio 2.1 HISTO RICAL RESULTS Serum 07/10/2013 10:4 8 AM CDT Narrative HISTORICAL RESULTS - 07/10/2013 11:56 AM CDT Expiration Date: LAB Frequency Standing Order? No Result [facility] Historical Provider LAB BLOOD ORDERABLES Chanell asia Result Performing Organization Address [facility] de Phone Number HISTORICAL RESULTS * Serum tissue transglutaminase (TTG) ab (07/10/2013 10:48 AM CDT) TTG ab, IgA 3.4 0.0 - 19.9 units HISTORICAL RESULTS Serum 07/10/2013 10:4 8 AM CDT Narrative HISTORICAL RESULTS - 07/11/2013 4:40 AM CDT Expiration Date: LAB Frequency Standing Order? No Result [facility] Historical Provider LAB BLOOD ORDERABLES Chanell betancourt Result Performing Organization Address [facility] Phone Number HISTORICAL RESULTS * Serum thyroxine (T4), free (07/10/2013 10:48 AM CDT) Free T4 1.12 0.80 - 1.80 ng/dl HISTORICAL RESULTS Comment: Interpretive data: Free T4 concentrations rise acutely to as high as 5 ng/dl on the first day of life following TSH surge and then decrease gradually to adult levels by one month of age. Current [facility] data was last revised on 05. Serum 07/10/2013 10:4 8 AM CDT Narrative HISTORICAL RESULTS - 07/10/2013 11:56 AM CDT Expiration Date: LAB Frequency Standing Order? No Result [facility] Historical Provider MD LAB BLOOD ORDERABLES Chanell asia Result Performing Organization Address [facility] de Phone Number HISTORICAL RESULTS * Discharge Laboratory Cumulative Report (07/10/2013 12:00 AM CDT) 07/10/2013 Narrative HISTORICAL RESULTS - 07/12/2013 2:32 AM CDT ? [facility] ?Clinical Laboratories ? [address] ? [place] [address] Patient Name: ? KARINA FUCHS [facility] Rec Number: ?? [id number] Fin Number: ? [id number] Date: ? 1995 Sex/Age: ?Female 18 years Admit Date: ? 07/10/2013 Discharge Date: ?? 07/10/2013 Doctor: ? Kanchan Vigil Referring Doctor: Kanchan Vigil [facility] Chart Printed: ?07/12/2013 02:32 ?* Abnormal ??C Critical ??f Footnote ??^ Corrected ??L Low ??H High ? i Interp Data ??@ Ref Lab ?Chart Type:Cumulative ?LIPIDS ?Test: ??Total Cholesterol i ??HDL Cholesterol i ? Reference: ? Units: ? mg/dL ? mg/dL 07/10/2013 ?? 15:48:00 ? 197 ?95 07/10/2013 15:48:00 Total Cholesterol: Interpretive Data ? <4 yr [...] interpretive data was last revised on 2009. 07/10/2013 15:48:00 HDL Cholesterol: Interpretive Data ?<16 yr: 35 [...] interpretive data was last revised on 2009. 07/10/2013 15:48:00 ??Lipid Pnl SLC: Expiration Date: LAB Frequency Standing Order? No ?LIPIDS ?Test: ??Triglycerides i ??LDL Chol (Calc) i ? Reference: ?[0-150] ? Units: ? mg/dL ? mg/dL 07/10/2013 ?? 15:48:00 ?64 ?89 07/10/2013 15:48:00 Triglycerides: Interpretive Data: ? <16 years: ?30-150 mg/dL > or = 16 years: Desirable: ?<150 ? mg/dL Borderline High: ?? 150-199 mg/dL High: ? >200 ? mg/dL Literature Reference: National Cholesterol Education Program (NCEP) Expert Panel on Detection, Evaluation, and Treatment of High Blood Cholesterol in Adults (Adult Treatment Panel III). ??Circulation 2004; 110:227. Current interpretive data was last revised on 2009. 07/10/2013 15:48:00 LDL Chol (Calc): Interpretive Data ?<4 yr [...] ?Test: ??Chol/HDL Ratio ? Reference: ? Units: 07/10/2013 ?? 15:48:00 ? 2.1 ?BLOOD HORMONES ?Test: ? TSH i ? Free T4 (Free Thyroxine) i ? Reference: ??[0.35-5.50] ?[0.80-1.80] ? Units: ??mcIUnit/mL ? ng/dL 07/10/2013 ?? 15:48:00 ? 3.98 ? 1.12 07/10/2013 15:48:00 TSH: Interpretive Data: TSH concentration may range up to 100 mcIUnit/ml due to surge of TSH production on the first day of life and then fall gradually to adult levels by one month of age. Current [facility] data was last revised as of 09/14/2005. ?BLOOD HORMONES 07/10/2013 15:48:00 Free T4 (Free Thyroxine): Interpretive data: Free T4 concentrations rise acutely to as high as 5 ng/dl on the first day of life following TSH surge and then decrease gradually to adult levels by one month of age. Current [facility] data was last revised on 05. 07/10/2013 15:48:00 ??TSH: Expiration Date: LAB Frequency Standing Order? No 07/10/2013 15:48:00 ??T4 Free: Expiration Date: LAB Frequency Standing Order? No ?AUTOANTIBODIES ?Test: ??TTG-IgA Ab ? Reference: ??[0.0-19.9] ? Units: ?Units 07/10/2013 ?? 15:48:00 ? 3.4 07/10/2013 15:48:00 ??TTG-IgA Ab: Expiration Date: LAB Frequency Standing Order? No us Historical Provider LAB BLOOD ORDERABLES Chanell betancourt Result HISTORICAL RESULTS documented in this encounter Visit Diagnoses Diagnosis Type I diabetes mellitus (HCC) Type I (juvenile type) diabetes mellitus without mention of complication, not stated as uncontrolled documented in this encounter
--- OUTSIDE RECORDS SUMMARY | 2024-05-10 18:43 | XMS_ITS | Encounter Summary ---
Author Organization [facility] Healthcare Address [address] [place] [address] Care Team Providers Care Pool Attendant Name Role Phone Unavailable Primary Care Provider Unavailabl e Encounter Details Date Type Department Care Team (Late st Contact Info) Description 09/09/2011 6:58 AM CDT - 09/09/2011 10:55 AM CDT Hospital Encounter [facility] Pato Holliday MD [address] [place] [address] Chronic tonsillitis and adenoiditis; Type 2 or unspecified type diabetes mellitus Social History Tobacco Use Types Packs/Day Years Used Date Smoking Tobacco: Never Assessed Comments Unknown Sex and Gender Information Value Date Recorded Sex Assigned at Not on file 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
--- OUTSIDE RECORDS SUMMARY | 2024-05-10 18:43 | XMS_ITS | Encounter Summary ---
Author Organization [facility] Facility Care Team Providers Care Vmware Systems Administrator Name Role Phone Unavailable Primary Care Provider Unavailabl e Encounter Details Date Type Department Care Team (Late st Contact Info) Description 08/17/2014 6:36 PM CDT - 08/18/2014 3:28 PM CDT Hospital Encounter [facility] Ramila Khan MD [address] [place] [address] Lawson Heck MD [address] [place] [address] Type 1 (juvenile type) diabetes mellitus with other specified manifestations, uncontrolled; Edema; Encounter for long-term (current) use of insulin (HCC); Tietze's disease Social History Tobacco Use Types Packs/Day Years Used Date Smoking Tobacco: Never Assessed Comments Unknown Sex and Gender Information Value Date Recorded Sex Assigned at Not on file 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 Gender Identity Not on file Sexual Orientation Not on file documented as of this encounter Last Filed Vital Signs Vital Sign Reading Time Taken Comments Blood Pressure 92/55 08/18/2014 12:03 PM CDT Pulse 94 08/18/2014 12:03 PM CDT Temperature - - Respiratory Rate - - Oxygen Saturation 98% 08/18/2014 12: 03 PM CDT Inhaled Oxygen Concentration - - Weight 57.4 kg (126 lb 8.7 oz) 08/18/19 15 10:40 PM CDT Height 153.5 cm (5' 0.43 ) 08/17/2014 1 0:40 PM CDT Body Mass Index 24.36 08/17/2014 10:40 PM CDT Body Mass Index Percentile 78.30% 08/17 10:40 PM CDT Growth Chart: [facility] (Girls, 2- 20 Years) documented in this encounter Plan of Treatment Not on file documented as of this encounter Procedures Procedure Name Priority Date/Time Associated Diagnosis Comments BLOOD GLUCOSE, POC Routine 08/18/2014 12 :29 PM CDT BLOOD GLUCOSE, POC Routine 08/18/2014 9: 26 AM CDT SERUM THYROXINE (T4), FREE Routine 08/18/2014 7:16 AM CDT SERUM THYROID-STIMULATING HORMONE (TSH) Routine 08/18/2014 7:16 AM CDT PLASMA COMPREHENSIVE METABOLIC PANEL Routine 08/18/2014 7:16 AM CDT BLOOD GLUCOSE, POC Routine 08/18/2014 3: 00 AM CDT BLOOD GLUCOSE, POC Routine 08/18/2014 12 :13 AM CDT DISCHARGE LABORATORY CUMULATIVE REPORT 08/18/2014 BLOOD GLUCOSE, POC Routine 08/17/2014 10 :52 PM CDT US ABDOMEN COMPLETE Routine 08/17/2014 9 :24 PM CDT URINE MICROSCOPY Routine 08/17/2014 8:48 PM CDT URINE CHORIONIC GONADOTROPIN (HCG) Routine 08/17/2014 8:48 PM CDT URINALYSIS Routine 08/17/2014 8:48 PM CDT PLASMA COMPREHENSIVE METABOLIC PANEL Routine 08/17/2014 7:59 PM CDT CHEST RADIOGRAPHY, FRONTAL (AP), LATERAL Routine 08/17/2014 7:51 PM CDT BLOOD GLUCOSE, POC Routine 08/17/2014 6: 58 PM CDT documented in this encounter Results * Blood glucose, POC (08/18/2014 12:29 PM CDT) Glucose, POC, bld 185 70 - 199 mg/dl HISTORICAL RESULTS Blood specimen (specimen) 08/18/2014 12:29 PM CDT Historical Provider LAB BLOOD ORDERABLES Chanell l Result Performing Organization Address [facility] de Phone Number HISTORICAL RESULTS * Blood glucose, POC (08/18/2014 9:26 AM CDT) Glucose, POC, bld 127 70 - 199 mg/dl HISTORICAL RESULTS Blood specimen (specimen) 08/18/2014 9:26 AM CDT Historical Provider LAB BLOOD ORDERABLES Chanell betancourt Result Performing Organization Address [facility] de Phone Number HISTORICAL RESULTS * (ABNORMAL) Serum thyroid-stimulating hormone (TSH) (08/18/2014 7:16 AM CDT) TSH 6.10(H) 0.35 - 5.50 mcIUnits/ ml HISTORICAL RESULTS Comment: Interpretive Data: TSH concentration may range up to 100 mcIUnit/ml due to surge of TSH production on the first day of life and then fall gradually to adult levels by one month of age. Current banner data was last revised as of 09/14/2005. Serum 08/18/2014 7:16 AM CDT us Historical Provider LAB BLOOD ORDERABLES Chanell l Result Performing Organization Address [facility] Co de Phone Number HISTORICAL RESULTS * Serum thyroxine (T4), free (08/18/2014 7:16 AM CDT) Free T4 0.91 0.80 - 1.80 ng/dl HISTORICAL RESULTS Comment: Interpretive data: Free T4 concentrations rise acutely to as high as 5 ng/dl on the first day of life following TSH surge and then decrease gradually to adult levels by one month of age. Current inter data was last revised on 05. Serum 08/18/2014 7:16 AM CDT us Historical Provider LAB BLOOD ORDERABLES Chanell betancourt Result HISTORICAL RESULTS * (ABNORMAL) Plasma comprehensive metabolic panel (08/18/2014 7:16 AM CDT) Sodium 141 135 - 145 mmol/L HISTORICAL RESULTS K, pl 3.6 3.3 - 4.9 mmol/L HISTORICAL RESULTS Chloride 109 100 - 114 mmol/L HISTORICAL RESULTS CO2 29 20 - 30 mmol/L HISTORICAL RESULTS A. gap 2 mmol/L HISTORICAL RESULTS Glucose 115 70 - 199 mg/dl HISTORICAL RESULTS Comment: Interpretive Data Random glucose greater than or equal to 200 mg/dL with relevant clinical symptoms is diagnostic for diabetes when repeated on a subsequent day. Reference: Diabetes Care 2005;28:S37-S42. Current interpretive data was last revised on 2013. BUN 17 8 - 25 mg/dl HISTORICAL RESULTS Creatinine 0.4 0.4 - 1.0 mg/dl HISTORICAL RESULTS Protein, pl 5.0(L) 6.5 - 8.5 g/dl HISTORICAL RESULTS Alb 3.0(L) 3.6 - 5.0 g/dl HISTORICAL RESULTS Alk phos 55(L) 70 - 260 Units/L HISTORICAL RESULTS AST 60(H) 10 - 50 Units/L HISTORICAL RESULTS ALT 79(H) 10 - 40 Units/L HISTORICAL RESULTS Calcium 7.9(L) 8.6 - 10.3 mg/dl HISTORICAL RESULTS Comment:{Repeated and verifi ed.} Bilirubin 0.1 0.0 - 1.2 mg/dl HISTORICAL RESULTS Comment:{Repeated and verifi ed.} Plasma 08/18/2014 7:16 AM CDT Result [facility] Historical Provider MD LAB BLOOD ORDERABLES Chanell l Result HISTORICAL RESULTS * (ABNORMAL) Blood glucose, POC (08/18/2014 3:00 AM CDT) Glucose, POC, bld 200(H) 70 - 199 mg/dl HISTORICAL RESULTS Blood specimen (specimen) 08/18/2014 3:00 AM CDT Result [facility] Historical Provider MD LAB BLOOD ORDERABLES Chanell l Result Performing Organization Address [facility] Co de Phone Number HISTORICAL RESULTS * Blood glucose, POC (08/18/2014 12:13 AM CDT) Glucose, POC, bld 105 70 - 199 mg/dl HISTORICAL RESULTS Blood specimen (specimen) 08/18/2014 12:13 AM CDT Result [facility] Historical Provider MD LAB BLOOD ORDERABLES Chanell l Result Performing Organization Address [facility] Co de Phone Number HISTORICAL RESULTS * DISCHARGE LABORATORY CUMULATIVE REPORT (08/18/2014) Narrative 08/18/2014 Ordered by an unspecified provider. Result [facility] Provider LAB BLOOD ORDERABLES Chanell l Result * Blood glucose, POC (08/17/2014 10:52 PM CDT) Glucose, POC, bld 145 70 - 199 mg/dl HISTORICAL RESULTS Blood specimen (specimen) 08/17/2014 10:52 PM CDT Result [facility] Historical Provider MD LAB BLOOD ORDERABLES Chanell l Result Performing Organization Address [place]/[facility] Co de Phone Number HISTORICAL RESULTS * US Abdomen Complete (08/17/2014 9:24 PM CDT) Anatomical Region Laterality Modality Abdomen N/A Ultrasound 08/17/2014 9:24 PM CDT Narrative 08/18/2014 6:25 AM CDT FRANK AYALA M.D. SARAH BILLINGS M.D. FINAL REPORT The radiology attending physician has personally reviewed this study, and has reviewed and/or edited this written report and agrees with it. ACC# ??Date Time ??Exam [id number] Aug 17, 2014 21:24:00 [id number] SONO ABD COMPLT ACC# ??Date Time ??Exam [id number] Aug 17, 2014 21:24:00 [id number] SONO ABD COMPLT EXAMINATION: ?ABDOMINAL SONOGRAM ?08-17-2014 HISTORY: ??Poorly controlled diabetes presents with lower extremity edema. possible cirrhosis. FINDINGS: ?? The visualized portions of the pancreas are unremarkable. ?? The liver is of normal architecture without focal masses or biliary ductal dilatation. The gall bladder is not very well distended as the patient ate approximately 3-1/2 hours prior, however no abnormalities identified. No cholelithiasis. ??The visualized portions of the aorta and IVC are normal. ??There is no splenomegaly. ??The right kidney measures 10.8 cm. There is no hydronephrosis. There is no cortical thinning. The renal architecture is normal. ??There is a single 1.5 x 1.5 x 1.0 cm cystic structure without flow in the right upper pole kidney which appears to connect with the collecting system. This likely represents a minimally dilated renal calyx. ?The left kidney measures 10.1 cm. This is within normal limits for the patient's age. There is no hydronephrosis. There is no cortical thinning. The renal architecture is normal. ??The bladder is unremarkable. ??No ascites. ?? 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 Requested By: BEVERLEY MACKEY M.D. Dictated By: ?? SARAH BILLINGS M.D. ??on Aug 17 2014 ??9:41P This document has been electronically signed by: FRANK AYALA M.D. on Aug 18 2014 ??6:25A Procedure Note Provider, MD Marie - 08/25/2016 FRANK AYALA M.D. SARAH BILLINGS M.D. FINAL REPORT The radiology attending physician has personally reviewed this study, and has reviewed and/or edited this written report and agrees with it. ACC# Date Time Exam [id number] Aug 17, 2014 21:24:00 [id number] SONO ABD COMPLT ACC# Date Time Exam [id number] Aug 17, 2014 21:24:00 [id number] SONO ABD COMPLT EXAMINATION: ABDOMINAL SONOGRAM 08-17-2014 HISTORY: Poorly controlled diabetes presents with lower extremity edema. possible cirrhosis. FINDINGS: The visualized portions of the pancreas are unremarkable. The liver is of normal architecture without focal masses or biliary ductal dilatation. The gall bladder is not very well distended as the patient ate approximately 3-1/2 hours prior, however no abnormalities identified. No cholelithiasis. The visualized portions of the aorta and IVC are normal. There is no splenomegaly. The right kidney measures 10.8 cm. There is no hydronephrosis. There is no cortical thinning. The renal architecture is normal. There is a single 1.5 x 1.5 x 1.0 cm cystic structure without flow in the right upper pole kidney which appears to connect with the collecting system. This likely represents a minimally dilated renal calyx. The left kidney measures 10.1 cm. This is within normal limits for the patient's age. There is no hydronephrosis. There is no cortical thinning. The renal architecture is normal. The bladder is unremarkable. No ascites. 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 Dictated By: SARAH BILLINGS M.D. on Aug 17 2014 9:41P This document has been electronically signed by: FRANK AYALA M.D. on Aug 18 2014 6:25A Historical Provider IMG US PROCEDURES Final R esult * Urine chorionic gonadotropin (HCG) (08/17/2014 8:48 PM CDT) HCG, ur Negative Negative HISTORICAL RESULTS Urine 08/17/2014 8:48 PM CDT Historical Provider LAB BLOOD ORDERABLES Chanell saia Result HISTORICAL RESULTS * (ABNORMAL) Urinalysis (08/17/2014 8:48 PM CDT) Pathologist [facility] Color, ur Yellow HISTORICAL RESULTS Clarity, ur Cloudy(A) Clear HISTORIC AL RESULTS Specific gravity, ur 1.048(H) 1.008 - 1.022 HISTORICAL RESULTS Comment:{Repeated and verifi ed.} pH, ur 7.0 HISTORICAL RESULTS Protein, ur Negative Negative HISTORIC AL RESULTS Glucose, ur 3+(A) Negative HISTORIC AL RESULTS Ketones, ur Negative Negative HISTORIC AL RESULTS Bilirubin, ur Negative Negative HISTOR ICAL RESULTS U Blood Negative Negative HISTORICAL RESULTS Urobilinogen, quant, ur 0.2 Sasha Units/dl HISTORICAL RESULTS Nitrites, ur Negative Negative HISTORI MITZI RESULTS Leukocyte esterase, ur Negative Negative HISTORICAL RESULTS Urine 08/17/2014 8:48 PM CDT Historical Provider LAB BLOOD ORDERABLES Chanell l Result Performing Organization Address [facility] de Phone Number HISTORICAL RESULTS * (ABNORMAL) Urine microscopy (08/17/2014 8:48 PM CDT) Pathologist [facility] RBC, ur < 5/HPF None Seen HISTORICAL RESULTS WBC, ur 5-10/HPF(A ) None Seen HISTORICAL RESULTS Epithelial cells, renal, ur None Seen None Seen HISTORICAL RESULTS Epithelial cells, squamous, ur < 5/HPF HISTORICAL RESULTS Yeast, ur Trace(A) HISTORICAL RESULTS Amorphous crystals, ur 2+(A) HISTORICAL RESULTS Urine 08/17/2014 8:48 PM CDT Historical Provider LAB BLOOD ORDERABLES Chanell l Result Performing Organization Address [facility] de Phone Number HISTORICAL RESULTS * (ABNORMAL) Plasma comprehensive metabolic panel (08/17/2014 7:59 PM CDT) Pathologist [facility] Sodium 132(L) 135 - 145 mmol/L HISTORICAL RESULTS K, pl Hemolyzed 3.3 - 4.9 mmol/L HISTORICAL RESULTS Comment:{Hemolyzed; result u nreliable.} Chloride 102 100 - 114 mmol/L HISTORICAL RESULTS CO2 27 20 - 30 mmol/L HISTORICAL RESULTS A. gap 4 mmol/L HISTORICAL RESULTS Glucose 210(H) 70 - 199 mg/dl HISTORICAL RESULTS Comment: Interpretive Data Random glucose greater than or equal to 200 mg/dL with relevant clinical symptoms is diagnostic for diabetes when repeated on a subsequent day. Reference: Diabetes Care 2005;28:S37-S42. Current interpretive data was last revised on 2013. BUN 17 8 - 25 mg/dl HISTORICAL RESULTS Creatinine 0.4 0.4 - 1.0 mg/dl HISTORICAL RESULTS Calcium 9.0 8.6 - 10.3 mg/dl HISTORICAL RESULTS Protein, pl 6.3(L) 6.5 - 8.5 g/dl HISTORICAL RESULTS Alb 3.7 3.6 - 5.0 g/dl HISTORICAL RESULTS Bilirubin 0.2 0.0 - 1.2 mg/dl HISTORICAL RESULTS Alk phos See Comment 70 - 260 Units/L HISTORICAL RESULTS Comment:{Hemolyzed; result u nreliable.} AST Hemolyzed 10 - 50 Units/L HISTORICAL RESULTS Comment:{Hemolyzed; result u nreliable.} ALT See Comment 10 - 40 Units/L HISTORICAL RESULTS Comment:{Hemolyzed; result u nreliable.} Plasma 08/17/2014 7:59 PM CDT us Historical Provider LAB BLOOD ORDERABLES Chanell l Result HISTORICAL RESULTS * CHEST RADIOGRAPHY, FRONTAL (AP), LATERAL (08/17/2014 7:51 PM CDT) Anatomical Region Laterality Modality N/A Radiographic Sarahy ging 08/17/2014 7:51 PM CDT Narrative 08/18/2014 6:23 AM CDT FRANK AYALA M.D. SARAH BILLINGS M.D. FINAL REPORT The radiology attending physician has personally reviewed this study, and has reviewed and/or edited this written report and agrees with it. ACC# ??Date Time ??Exam [id number] Aug 17, 2014 19:51:00 [id number] CHEST 2 VIEWS ACC# ??Date Time ??Exam [id number] Aug 17, 2014 19:51:00 [id number] CHEST 2 VIEWS EXAMINATION: ??CHEST ?? 08-17-2014 HISTORY: ?? Chest pain, recent hyperglycemia FINDINGS: Radiographs of the chest are obtained with comparison to radiograph from 08/16/2014 at 1:07 a.m. ?Cardiomediastinal silhouette is normal. Lungs are clear without pulmonary edema or focal consolidation. There is no pleural effusion or pneumothorax. ?? IMPRESSION: ?Normal chest radiograph ?? Requested By: Dictated By: ?? SARAH BILLINGS M.D. ??on Aug 17 2014 ??8:09P This document has been electronically signed by: FRANK AYALA M.D. on Aug 18 2014 ??6:23A Procedure Note Provider, MD Marie - 08/25/2016 FRANK AYALA M.D. SARAH BILLINGS M.D. FINAL REPORT The radiology attending physician has personally reviewed this study, and has reviewed and/or edited this written report and agrees with it. ACC# Date Time Exam [id number] Aug 17, 2014 19:51:00 [id number] CHEST 2 VIEWS ACC# Date Time Exam [id number] Aug 17, 2014 19:51:00 [id number] CHEST 2 VIEWS EXAMINATION: CHEST 08-17-2014 HISTORY: Chest pain, recent hyperglycemia FINDINGS: Radiographs of the chest are obtained with comparison to radiograph from 08/16/2014 at 1:07 a.m. Cardiomediastinal silhouette is normal. Lungs are clear without pulmonary edema or focal consolidation. There is no pleural effusion or pneumothorax. IMPRESSION: Normal chest radiograph Requested By: Dictated By: SARAH BILLINGS M.D. on Aug 17 2014 8:09P This document has been electronically signed by: FRANK AYALA M.D. on Aug 18 2014 6:23A Historical Provider IMG XR PROCEDURES Final R esult * (ABNORMAL) Blood glucose, POC (08/17/2014 6:58 PM CDT) Glucose, POC, bld 264(H) 70 - 199 mg/dl HISTORICAL RESULTS Gluc, com 1, bld Glu2: Critical Value HISTORICAL RESULTS Blood specimen (specimen) 08/17/2014 6:58 PM CDT Historical Provider LAB BLOOD ORDERABLES Chanell l Result HISTORICAL RESULTS documented in this encounter Visit Diagnoses Diagnosis Type 1 (juvenile type) diabetes mellitus with other specified manifestations, uncontrolled Edema Encounter for long-term (current) use of insulin (HCC) Encounter for long-term (current) use of insulin Tietze's disease documented in this encounter
--- OUTSIDE RECORDS SUMMARY | 2024-05-10 18:43 | XMS_ITS | Encounter Summary ---
Author Organization [facility] Facility Care Team Providers Care Telephone Sex Worker Name Role Phone Unavailable Primary Care Provider Unavailabl e Encounter Details Date Type Department Care Team (Latest Contact Info) Description 11/09/2011 4:25 PM CDT - 11/09/2011 10:25 PM CDT Hospital Encounter [facility] Contusion of foot; Other accident caused by striking against or being struck accidentally by objects or persons with or without subsequent fall; Unspecified place of occurrence; Type I diabetes mellitus (HCC) Social History Tobacco Use Types Packs/Day Years Used Date Smoking Tobacco: Never Assessed Comments Unknown Sex and Gender Information Value Date Recorded Sex Assigned at Not on file 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
--- OUTSIDE RECORDS SUMMARY | 2024-05-10 18:43 | XMS_ITS | Encounter Summary ---
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 Gender Identity Not on file Sexual Orientation Not on file documented as of this encounter Plan of Treatment Not on file documented as of this encounter Procedures Procedure Name Priority Date/Time Associated Diagnosis Comments SERUM SAMPLE SAVED COMMENT Routine 08/17/2012 10:20 AM CDT SERUM ANTIDOUBLE-STRANDED DNA AB Routine 08/17/2012 10:20 AM CDT URINE PROTEIN Routine 08/17/2012 5:30 AM CDT URINE MICROSCOPY Routine 08/17/2012 5:30 AM CDT URINE CREATININE Routine 08/17/2012 5:30 AM CDT URINALYSIS Routine 08/17/2012 5:30 AM CDT SERUM RHEUMATOID FACTOR QUANTITATIVE Routine 08/17/2012 5:20 AM CDT SERUM C-REACTIVE PROTEIN, HIGH SENSITIVITY Routine 08/17/2012 5:20 AM CDT SERUM COMPLEMENT C4 Routine 08/17/2012 5 :20 AM CDT SERUM COMPLEMENT C3 Routine 08/17/2012 5 :20 AM CDT SERUM ANTINUCLEAR AB (VIKTOR), QUANTITATIVE Routine 08/17/2012 5:20 AM CDT SERUM ANTINUCLEAR AB (VIKTOR) Routine 08/17/2012 5:20 AM CDT SERUM ANTI-EXTRACTABLE NUCLEAR AG (KEVIN) AB Routine 08/17/2012 5:20 AM CDT PLASMA COMPREHENSIVE METABOLIC PANEL Routine 08/17/2012 5:20 AM CDT BLOOD WBC CELL MORPHOLOGIC EXAM, AUTO Routine 08/17/2012 5:20 AM CDT BLOOD ERYTHROCYTE SEDIMENTATION RATE (ESR) Routine 08/17/2012 5:20 AM CDT BLOOD CELL COUNT (CBC) Routine 3 5:20 AM CDT DISCHARGE LABORATORY CUMULATIVE REPORT Routine 08/17/2012 12:00 AM CDT documented in this encounter Results * Serum antidouble-stranded DNA ab (08/17/2012 10:20 AM CDT) Anti-double stranded DNA Negative Negative HISTORICAL RESULTS Anti-double stranded DNA, quant 1.1 0.0 - 25.0 IUnits/ml HISTORICAL RESULTS Serum 08/17/2012 10:2 0 AM CDT us Historical Provider LAB BLOOD ORDERABLES Chanell betancourt Result HISTORICAL RESULTS * Serum sample saved comment (08/17/2012 10:20 AM CDT) Serum save specimen 0.0 mL stored in Serology for 3 months in freezer location save1 HISTORICAL RESULTS Serum 08/17/2012 10:2 0 AM CDT Historical Provider LAB BLOOD ORDERABLES Chanell l Result Performing Organization Address [facility] Phone Number HISTORICAL RESULTS * Urine creatinine (08/17/2012 5:30 AM CDT) Creatinine, ur 15.5 mg/dl HISTO RICAL RESULTS Urine 08/17/2012 5:30 AM CDT Narrative HISTORICAL RESULTS - 08/17/2012 6:06 AM CDT Expiration Date: LAB Frequency Standing Order? No [facility] Provider LAB BLOOD ORDERABLES Chanell l Result Performing Organization Address [facility] Phone Number HISTORICAL RESULTS * (ABNORMAL) Urinalysis (08/17/2012 5:30 AM CDT) Color, ur Yellow HISTORICAL RESULTS Clarity, ur Clear Clear HISTORIC AL RESULTS Specific gravity, ur 1.021 1.008 - 1.022 HISTORICAL RESULTS pH, ur 7.0 HISTORICAL RESULTS Protein, ur Negative Negative HISTORIC AL RESULTS Glucose, ur 3+(A) Negative HISTORIC AL RESULTS Comment: Critical test result called to magaly(rn in [facility]) on 08/17/2012 11:03:50 CDT by earl. Critical result read back by magaly on 08/17/2012 11:03:55 CDT to earl. Ketones, ur Trace(A) Negative HISTORIC AL RESULTS Bilirubin, ur Negative Negative HISTOR ICAL RESULTS U Blood Negative Negative HISTORICAL RESULTS Urobilinogen, quant, ur 0.2 Sasha Units/dl HISTORICAL RESULTS Nitrites, ur Negative Negative HISTORI MITZI RESULTS Leukocyte esterase, ur 1+(A) Negative HISTORICAL RESULTS Urine 08/17/2012 5:30 AM CDT Narrative HISTORICAL RESULTS - 08/17/2012 6:04 AM CDT Expiration Date: LAB Frequency Standing Order? No Historical Provider LAB BLOOD ORDERABLES Chanell l Result HISTORICAL RESULTS * (ABNORMAL) Urine microscopy (08/17/2012 5:30 AM CDT) RBC, ur < 5/HPF None Seen HISTORICAL RESULTS WBC, ur 11-20/HPF( A) None Seen HISTORICAL RESULTS Epithelial cells, renal, ur < 5/HPF None Seen HISTORICAL RESULTS Epithelial cells, squamous, ur 11-20/HPF( A) HISTORICAL RESULTS Yeast, ur Trace(A) HISTORICAL RESULTS Urine 08/17/2012 5:30 AM CDT Narrative HISTORICAL RESULTS - 08/17/2012 6:16 AM CDT Expiration Date: LAB Frequency Standing Order? No Historical Provider LAB BLOOD ORDERABLES Chanell l Result Performing Organization Address [facility] Co de Phone Number HISTORICAL RESULTS * Urine protein (08/17/2012 5:30 AM CDT) Protein, ur, quant 5 mg/dl HISTORICAL RESULTS Urine 08/17/2012 5:30 AM CDT Narrative HISTORICAL RESULTS - 08/17/2012 6:06 AM CDT Expiration Date: LAB Frequency Standing Order? No Historical Provider LAB BLOOD ORDERABLES Chanell l Result Performing Organization Address [facility] Co de Phone Number HISTORICAL RESULTS * Serum anti-extractable nuclear ag (KEVIN) ab (08/17/2012 5:20 AM CDT) Anti-EKVIN Negative Negative HISTORICAL RESULTS Serum 08/17/2012 5:20 AM CDT Narrative HISTORICAL RESULTS - 08/23/2012 10:12 AM CDT {Testing performed by: [facility], [place] [address]} Interpretive Data Positive Screens will be reflexed to specific testing for the following antigens: BELLHOP CAPTAIN/SM, SM, SSA, and SSB. A positive screen with negative specific antibodies indicates absence of Extractable Nuclear Antibody. Current interpretive data was last revised on 09. Historical Provider LAB BLOOD ORDERABLES Chanell betancourt Result Performing Organization Address [facility] de Phone Number HISTORICAL RESULTS * Blood erythrocyte sedimentation rate (ESR) (08/17/2012 5:20 AM CDT) Erythrocyte sedimentation rate 8.0 0.0 - 20.0 mm/hr HISTORICAL RESULTS Blood specimen (specimen) 08/17/2012 5:20 AM CDT Narrative HISTORICAL RESULTS - 08/17/2012 6:35 AM CDT Expiration Date: LAB Frequency Standing Order? No Historical Provider LAB BLOOD ORDERABLES Chanell betancourt Result Performing Organization Address [facility] Phone Number HISTORICAL RESULTS * Serum complement C4 (08/17/2012 5:20 AM CDT) Complement C4 14.0 12.0 - 54.0 mg/dl HISTORICAL RESULTS Serum 08/17/2012 5:20 AM CDT Narrative HISTORICAL RESULTS - 08/17/2012 6:43 AM CDT Expiration Date: LAB Frequency Standing Order? No Historical Provider LAB BLOOD ORDERABLES Chanell betancourt Result Performing Organization Address [facility] de Phone Number HISTORICAL RESULTS * Serum complement C3 (08/17/2012 5:20 AM CDT) Complement C3 103.6 83.0 - 185.0 mg/dl HISTORICAL RESULTS Serum 08/17/2012 5:20 AM CDT Narrative HISTORICAL RESULTS - 08/17/2012 6:43 AM CDT Expiration Date: LAB Frequency Standing Order? No Historical Provider LAB BLOOD ORDERABLES Chanell betancourt Result Performing Organization Address [facility] Co de Phone Number HISTORICAL RESULTS * Serum C-reactive protein, high sensitivity (08/17/2012 5:20 AM CDT) C-RP, high sensitivity 0.6 <=10.0 mg/L HISTORICAL RESULTS Comment: Interpretive Data Values >10 mg/L are indicative of inflammation. No ranges have been established for assessment of cardiac disease risk in children. High risk (>3.0 mg/L), average risk (1.0-3.0 mg/L), and low risk (<1.0 mg/L)tertiles have been established for evaluation of cardiac disease risk in adults (Circulation 2003; 107:499-511). Current interpretive data was last revised on 2009. Serum 08/17/2012 5:20 AM CDT Narrative HISTORICAL RESULTS - 08/17/2012 6:33 AM CDT Expiration Date: LAB Frequency Standing Order? No us Historical Provider LAB BLOOD ORDERABLES Chanell l Result Performing Organization Address [facility] de Phone Number HISTORICAL RESULTS * (ABNORMAL) Serum antinuclear ab (VIKTOR) (08/17/2012 5:20 AM CDT) VIKTOR, qual Positive(A ) Negative HISTORICAL RESULTS Serum 08/17/2012 5:20 AM CDT Narrative HISTORICAL RESULTS - 08/18/2012 8:43 AM CDT Expiration Date: LAB Frequency Standing Order? No ??Testing performed by: [facility] [address] Interpretive Data Normal range for Viktor Qualitative Antibody = Negative. 1. ??VIKTOR titers are performed on all positive qualitative results. 2. ??A significantly positive VIKTOR result is defined as a positive nuclear fluorescence at a titer of 1:80 or greater. 3. ??15% of normal people above age 65 have significantly positive VIKTOR results. ??5% or less of normal people age 65 or under have significantly positive VIKTOR results. Current interpretive data was last revised on 03. us Historical Provider LAB BLOOD ORDERABLES Chanell l Result Performing Organization Address [facility] de Phone Number HISTORICAL RESULTS * (ABNORMAL) Plasma comprehensive metabolic panel (08/17/2012 5:20 AM CDT) Sodium 136 135 - 145 mmol/L HISTORICAL RESULTS K, pl 4.8 3.3 - 4.9 mmol/L HISTORICAL RESULTS Chloride 102 100 - 114 mmol/L HISTORICAL RESULTS CO2 26 22 - 32 mmol/L HISTORICAL RESULTS A. gap 8 mmol/L HISTORICAL RESULTS BUN 16 9 - 18 mg/dl HISTORICAL RESULTS Creatinine 0.5 0.4 - 1.0 mg/dl HISTORICAL RESULTS Calcium 10.0 8.6 - 10.3 mg/dl HISTORICAL RESULTS Protein, pl 7.5 6.5 - 8.5 g/dl HISTORICAL RESULTS Alb 4.6 3.2 - 5.0 g/dl HISTORICAL RESULTS Bilirubin 0.6 0.0 - 1.2 mg/dl HISTORICAL RESULTS Alk phos 85 70 - 260 Units/L HISTORICAL RESULTS AST 19 10 - 50 Units/L HISTORICAL RESULTS Comment:{Hemolyzed; results may be falsely elevated.} ALT 11 10 - 40 Units/L HISTORICAL RESULTS Glucose 413(C) 65 - 199 mg/dl HISTORICAL RESULTS Comment: Critical test result called to MARY Westbrook RHU on 08/17/2012 11:46:46 CDT by SG. Critical result read back by MARY Westbrook RHU on 08/17/2012 11:46:46 CDT by SG. Repeated and verified. Plasma 08/17/2012 5:20 AM CDT Narrative HISTORICAL RESULTS - 08/17/2012 6:47 AM CDT Expiration Date: LAB Frequency Standing Order? No Historical Provider LAB BLOOD ORDERABLES Chanell l Result HISTORICAL RESULTS * (ABNORMAL) Serum antinuclear ab (VIKTOR), quantitative (08/17/2012 5:20 AM CDT) VIKTOR, quant 1:80(A) Negative titer HISTORICAL RESULTS VIKTOR, interp Speckled(A) HISTOR ICAL RESULTS VIKTOR, interp See Comment HISTOR ICAL RESULTS Comment:{No additional patte rn seen.} Serum 08/17/2012 5:20 AM CDT Narrative HISTORICAL RESULTS - 08/18/2012 8:43 AM CDT {Testing performed by: [facility] [address]} Historical Provider LAB BLOOD ORDERABLES Chanell l Result HISTORICAL RESULTS * (ABNORMAL) Blood cell count (CBC) (08/17/2012 5:20 AM CDT) WBC 5.7 3.8 - 9.8 K/cumm HISTORICAL RESULTS RBC 4.97 3.90 - 5.00 M/cumm HISTORICAL RESULTS Hgb 15.2(H) 12.1 - 15.1 g/dl HISTORICAL RESULTS Hct 43.0 36.1 - 44.3 % HISTORICAL RESULTS MCV 86.5 80.0 - 97.6 fl HISTORICAL RESULTS MCH 30.6 26.7 - 33.7 pg HISTORICAL RESULTS MCHC 35.3 32.7 - 35.5 g/dl HISTORICAL RESULTS Rdw 12.6 11.8 - 14.6 % HISTORICAL RESULTS Platelets 352 140 - 440 K/cumm HISTORICAL RESULTS MPV 9.4 8.1 - 11.9 fl HISTORICAL RESULTS NRBC 0.0 #/100 WBC HISTORICAL RESULTS Blood specimen (specimen) 08/17/2012 5:20 AM CDT Narrative HISTORICAL RESULTS - 08/17/2012 5:56 AM CDT Expiration Date: LAB Frequency Standing Order? No Historical Provider LAB BLOOD ORDERABLES Chanell betancourt Result Performing Organization Address [facility] Co de Phone Number HISTORICAL RESULTS * (ABNORMAL) Serum rheumatoid factor quantitative (08/17/2012 5:20 AM CDT) Pathologist [facility] Rheumatoid factor, quant 27(H) 0 - 15 IUnits/ml HISTORICAL RESULTS Serum 08/17/2012 5:20 AM CDT Narrative HISTORICAL RESULTS - 08/17/2012 9:58 AM CDT Expiration Date: LAB Frequency Standing Order? No ??Testing performed by: [facility], [place] [address] Historical Provider LAB BLOOD ORDERABLES Chanell l Result HISTORICAL RESULTS * Blood WBC cell morphologic exam, auto (08/17/2012 5:20 AM CDT) Neutrophils 51.0 44.0 - 80.0 % HISTORICAL RESULTS Lymphocytes 38.6 13.0 - 44.0 % HISTORICAL RESULTS Monos 9.5 2.0 - 11.0 % HISTORICAL RESULTS Eosinophils 0.4 0.0 - 6.0 % HISTORICAL RESULTS Basophils 0.5 0.0 - 3.0 % HISTORICAL RESULTS Neutrophils, abs 2.9 1.6 - 7.0 K/cumm HISTORICAL RESULTS Lymphocytes, abs 2.2 0.5 - 4.3 K/cumm HISTORICAL RESULTS Monocytes, absolute 0.5 0.1 - 1.0 K/cumm HISTORICAL RESULTS Eosinophils, abs 0.0 0.0 - 0.6 K/cumm HISTORICAL RESULTS Basophils, abs 0.0 0.0 - 0.3 K/cumm HISTORICAL RESULTS Blood specimen (specimen) 08/17/2012 5:20 AM CDT Narrative HISTORICAL RESULTS - 08/17/2012 5:56 AM CDT Expiration Date: LAB Frequency Standing Order? No us Historical Provider LAB BLOOD ORDERABLES Chanell l Result HISTORICAL RESULTS * Discharge Laboratory Cumulative Report (08/17/2012 12:00 AM CDT) 08/17/2012 Narrative HISTORICAL RESULTS - 08/25/2012 2:38 AM CDT ? [facility] ?Clinical Laboratories ? [facility] [place] ? [place] [address] Patient Name: ? KARINA FUCHS Rec Number: ?? [id number] Fin Number: ? [id number] Date: ? 1995 Sex/Age: ?Female 17 years Admit Date: ? 08/17/2012 Discharge Date: ?? 08/17/2012 Doctor: ? Physician , Outpatient Referring Doctor: Samuel Mackenzie Facility: ? [facility] Location: ? OLAB Chart Printed: ?08/25/2012 02:38 ?* Abnormal ??C Critical ??f Footnote ??^ Corrected ??L Low ??H High ? i Interp Data ??@ Ref Lab ?Chart Type:Cumulative ? SELECTED ELECTROLYTES ?Test: ?? Sodium ?Plasma Potassium ?? Chloride ? Reference: ??[135-145] ?[3.3-4.9] ?[100-114] ? Units: ?? mmol/L ? mmol/L ? mmol/L 08/17/2012 ?? 10:20:19 ?136 ?4.8 ?102 08/17/2012 10:20:19 ??Comp Met Plas: Expiration Date: LAB Frequency Standing Order? No ?Test: ??Total CO2 ??Anion Gap ? Reference: ?? [22-32] ? Units: ?? mmol/L ? mmol/L 08/17/2012 ?? 10:20:19 ? 26 ?8 ? STANDARD BLOOD CHEMISTRY ?Test: ?? BUN ?Creatinine ??Total Bilirubin ?? Glucose ? Reference: ??[9-18] ?? [0.4-1.0] ?[0.0-1.2] ? [65- 199] ? Units: ??mg/dL ? mg/dL ?mg/dL ? mg/dL 08/17/2012 ?? 10:20:19 ? 16 ?0.5 ?0.6 ? 413 ??Cf 08/17/2012 10:20:19 ??Comp Met Plas: Expiration Date: LAB Frequency Standing Order? No 08/17/2012 10:20:19 ??Glucose: Critical test result called to MARY Westbrook on 08/17/2012 11:46:46 CDT by SAMY. Critical result read back by MARY Westbrook on 08/17/2012 11:46:46 CDT by SAMY. Repeated and verified. ? STANDARD BLOOD CHEMISTRY ?Test: ??Total Calcium ??Plasma Total Protein ?? Albumin ? Reference: ?? [8.6-10.3] ? [6.5-8.5] ?[3.2-5.0] ? Units: ?mg/dL ?g/dL ? g/dL 08/17/2012 ?? 10:20:19 ?10.0 ? 7.5 ?4.6 ?ENZYMES ?Test: ??Alkaline Phosphatase ?ALT ?AST ? Reference: ?[70-260] ?[10-40] ??[10-50] ? Units: ?Units/L ? Units/L ??Units/L 08/17/2012 ?? 10:20:19 ?85 ?11 ?19 ??f 08/17/2012 10:20:19 ??Comp Met Plas: Expiration Date: LAB Frequency Standing Order? No 08/17/2012 10:20:19 ??AST: Hemolyzed; results may be falsely elevated. ? QUANTITATIVE URINE CHEMISTRY ?Test: ??Random Urine Creatinine ??Random Urine Protein ? Reference: ? Units: ? mg/dL ? mg/dL 08/17/2012 ?? 10:30:59 ? 15.5 08/17/2012 ?? 10:30:59 ? 5.0 08/17/2012 10:30:59 ??Creat Ur Rnd: Expiration Date: LAB Frequency Standing Order? No 08/17/2012 10:30:59 ??Prot Ur Rnd: Expiration Date: LAB Frequency Standing Order? No ?URINALYSIS ?Macroscopic ?Test: ??Color ?? Clarity ??Specific [place] ?? pH ? Reference: ?[Clear] ?[1.008-1.022] ? Units: 08/17/2012 ?? 10:30:59 ?? Yellow ?? Clear ? 1.021 ?7.0 08/17/2012 10:30:59 ??Macro Ur: Expiration Date: LAB Frequency Standing Order? No ?URINALYSIS ?Macroscopic ?Test: ?? Albumin ? Glucose ? Ketones ?Bilirubin ? Reference: ??[Negative] ??[Negative] ??[Negative] ??[Negative] ? Units: 08/17/2012 ?? 10:30:59 ?Negative ? 3+ ??*f ? Trace ??* ?Negative 08/17/2012 10:30:59 ??Glucose: Critical test result called to magaly(rn in [facility]) on 08/17/2012 11:03:50 CDT by earl. Critical result read back by magaly on 08/17/2012 11:03:55 CDT to kh. ?Test: ?Blood ? Urobilinogen ?Nitrite ? Reference: ??[Negative] ?[Negative] ? Units: ? EhrUnit/dL 08/17/2012 ?? 10:30:59 ?Negative ?0.2 ?Negative ?Test: ??Leuk Esterase ? Reference: ?? [Negative] ? Units: 08/17/2012 ?? 10:30:59 ? 1+ ??* ?Microscopic ?Test: ?RBC ? WBC ? Epithl, Renal ? Reference: ??[None Seen] ?? [None Seen] ?[None Seen] ? Units: 08/17/2012 ?? 10:30:59 ? < 5/HPF ?11-20/HPF ??* ? < 5/HPF 08/17/2012 10:30:59 ??Micro Ur SLC: Expiration Date: LAB Frequency Standing Order? No ?Test: ??Epithl, Squam ?Yeast ? Reference: ? Units: 08/17/2012 ?? 10:30:59 ?? 11-20/HPF ??* ??Trace ??* ? COMPLETE BLOOD COUNT ?Test: ? WBC ? RBC ?Hgb ? Reference: ??[3.8-9.8] ??[3.90-5.00] ??[12.1-15.1] ? Units: ?? K/cumm ?M/cumm ?g/dL 08/17/2012 ?? 10:20:19 ?5.7 ? 4.97 ? 15.2 ??H 08/17/2012 10:20:19 ??Hemogram SLC: Expiration Date: LAB Frequency Standing Order? No ?Test: ?Hct ?Platelet Ct ?MCV ? Reference: ??[36.1-44.3] ?? [140-440] ?? [80.0-97.6] ? Units: ? % ?K/cumm ? fL 08/17/2012 ?? 10:20:19 ? 43.0 ?352 ?86.5 ? COMPLETE BLOOD COUNT ?Test: ?MCH ?MCHC ?RDW ? Reference: ??[26.7-33.7] ??[32.7-35.5] ??[11.8-14.6] ? Units: ?pg ?g/dL ? % 08/17/2012 ?? 10:20:19 ? 30.6 ? 35.3 ? 12.6 ?Test: ? MPV ?NRBC Auto ? Reference: ??[8.1-11.9] ? Units: ?fL ? /100WBC 08/17/2012 ?? 10:20:19 ? 9.4 ? 0.0 ? AUTOMATED WHITE CELL DIFFERENTIAL ?Test: ??Neut Pct Auto ??Lymph Pct Auto ??[place] Pct Auto ? Reference: ?? [44.0-80.0] ? [13.0-44.0] ? [2.0-11.0] ? Units: ?% ? % ? % 08/17/2012 ?? 10:20:19 ?51.0 ?38.6 ?9.5 08/17/2012 10:20:19 ??Diff Auto SLC: Expiration Date: LAB Frequency Standing Order? No ?Test: ??Eos Pct Auto ??Baso Pct Auto ??Neut Abs Auto ? Reference: ?? [0.0-6.0] ?[0.0-3.0] ?[1.6-7.0] ? Units: ? % ?% ?K/cumm 08/17/2012 ?? 10:20:19 ?0.4 ?0.5 ?2.9 ?Test: ??Lymph Abs Auto ??[place] Abs Auto ??Eos Abs Auto ? Reference: ?[0.5-4.3] ? [0.1-1.0] ?[0.0-0.6] ? Units: ?K/cumm ?K/cumm ? K/cumm 08/17/2012 ?? 10:20:19 ? 2.2 ? 0.5 ?0.0 ?Test: ??Baso Abs Auto ? Reference: ?[0.0-0.3] ? Units: ? K/cumm 08/17/2012 ?? 10:20:19 ?0.0 ? MISCELLANEOUS HEMATOLOGY ?Test: ?? ESR ? Reference: ??[0-20] ? Units: ?? mm/H 08/17/2012 ?? 10:20:19 ?8 08/17/2012 10:20:19 ??ESR Ped: Expiration Date: LAB Frequency Standing Order? No ?COMPLEMENTS ?Test: ??Complement, C3 ??Complement, C4 ? Reference: ?? [83.0-185.0] ? [12.0-54.0] ? Units: ?mg/dL ? mg/dL 08/17/2012 ?? 10:20:19 ?103.6 ?14.0 08/17/2012 10:20:19 ??Comp C3: Expiration Date: LAB Frequency Standing Order? No 08/17/2012 10:20:19 ??Comp C4: Expiration Date: LAB Frequency Standing Order? No ?AUTOANTIBODIES ?Test: ??VIKTOR, Qual i ?? VIKTOR, Mando ?? VIKTOR Pattern 1 ? Reference: ??[Negative] ?? [Negative] ? Units: ? titer 08/17/2012 ?? 10:20:19 ?? Positive ??* ?? 1:80 ??* ?Speckled ??* 08/17/2012 10:20:19 VIKTOR, Qual: Interpretive Data Normal range for Viktor Qualitative Antibody = Negative. 1. ??VIKTOR titers are performed on all positive qualitative results. 2. ??A significantly positive VIKTOR result is defined as a positive nuclear fluorescence at a titer of 1:80 or greater. 3. ??15% of normal people above age 65 have significantly positive VIKTOR results. ??5% or less of normal people age 65 or under have significantly positive VIKTOR results. Current interpretive data was last revised on 03. 08/17/2012 10:20:19 ??VIKTOR Ab Ql: Expiration Date: LAB Frequency Standing Order? No ??Testing performed by: [place] [address] 08/17/2012 10:20:19 ??VIKTOR Qn: Testing performed by: [place] [address] ?Test: ??VIKTOR Pattern 2 ?? Double Stranded DNA, Qual ? Reference: ?[Negative] ? Units: 08/17/2012 ?? 10:20:19 ?? See Comment ??f 08/17/2012 ?? 10:20:00 ?Negative 08/17/2012 10:20:19 ??VIKTOR Pattern 2: No additional pattern seen. ?Test: ??Double Stranded DNA, Mando ??KEVIN Screen i ? Reference: ? [0.0-25.0] ? [Negative] ? Units: ?IUnits/mL 08/17/2012 ?? 10:20:00 ?1.1 ? Negative ?AUTOANTIBODIES 08/17/2012 10:20:00 KEVIN Screen: Interpretive Data Positive Screens will be reflexed to specific testing for the following antigens: BELLHOP CAPTAIN/SM, SM, SSA, and SSB. A positive screen with negative specific antibodies indicates absence of Extractable Nuclear Antibody. Current interpretive data was last revised on 09. 08/17/2012 10:20:00 ??KEVIN Screen: Testing performed by: [place] [address] ?Test: ?? RF, Mando ? Reference: ??[0.0-15.0] ? Units: ??IUnits/mL 08/17/2012 ?? 10:20:19 ?27.2 ??H 08/17/2012 10:20:19 ??RF Qn: Expiration Date: LAB Frequency Standing Order? No ??Testing performed by: [place] [address] ? SEROLOGY - BACTERIAL TESTING ?Test: ??HS CRP i ? Reference: ??[<=10.0] ? Units: ?mg/L 08/17/2012 ?? 10:20:19 ?0.6 08/17/2012 10:20:19 HS CRP: Interpretive Data Values >10 mg/L are indicative of inflammation. No ranges have been established for assessment of cardiac disease risk in children. High risk (>3.0 mg/L), average risk (1.0-3.0 mg/L), and low risk (<1.0 mg/L)tertiles have been established for evaluation of cardiac disease risk in adults (Circulation 2003; 107:499-511). Current interpretive data was last revised on 2009. 08/17/2012 10:20:19 ??HS CRP: Expiration Date: LAB Frequency Standing Order? No ? SPECIAL SPECIMENS ?Test: ??Save, Serum ? Reference: ? Units: 08/17/2012 ?? 10:20:19 ?? See Below ??^ 08/17/2012 ??10:20:19 ??Save, Serum ? 0.0 mL stored in Serology for 3 months in freezer location save1 ? . ? SPECIAL SPECIMENS 08/17/2012 10:20:19 ??Save, Serum: ------- Report revised on 08/18/2012 19:51:47 by [facility] ------- Previously reported as: 1.0_ mL stored in Serology for 3 months in freezer location save1 . ?CANCELED ORDERS Drawn Date: ??Drawn Time: ??Test: ? Cancel Reason: 08/17/2012 ?? 10:16:00 ? Miscellaneous Referral (St. ?? [facility] Charge Error ? [facility]) us Historical Provider LAB BLOOD ORDERABLES Chanell betancourt Result HISTORICAL RESULTS documented in this encounter Visit Diagnoses Diagnosis Pain in joint, multiple sites documented in this encounter
--- OUTSIDE RECORDS SUMMARY | 2024-05-10 18:43 | XMS_ITS | Encounter Summary ---
Author Organization [facility] Facility Care Team Providers Care Facility Specialist Name Role Phone Unavailable Primary Care Provider Unavailabl e Encounter Details Date Type Department Care Team (Late st Contact Info) Description 08/17/2012 - 08/17/2012 11:59 PM CDT Hospital Encounter [facility] Jolanta Ayala MD [address] [place] [address] [address] Type I diabetes mellitus (HCC) Social History Tobacco Use Types Packs/Day Years Used Date Smoking Tobacco: Never Assessed Comments Unknown Sex and Gender Information Value Date Recorded Sex Assigned at Not on file 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
--- OUTSIDE RECORDS SUMMARY | 2024-05-10 18:43 | XMS_ITS | Encounter Summary ---
Author Organization [facility] Address [address] [place] [address] Care Team Providers Care Legal Project Manager Name Role Phone No, Physician Primary Care Provider [phone] Encounter Details Date Type Department Care Team (Latest Contact Info) Description 02/08/2017 3:32 PM CDT - 02/09/2017 6:39 PM CDT Hospital Encounter [facility] [address] [place] [id number] Hong Rodriguez MD [address] [place] [address] Abdirahman Harrison MD [address] [facility] [address] [place] [address] Discharge Disposition: Discharge to home or self care Social History Tobacco Use Types Packs/Day Years Used Date Smoking Tobacco: Never Assessed Comments Unknown Sex and Gender Information Value Date Recorded Sex Assigned at Not on file Legal Sex 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 Gender Identity Not on file Sexual Orientation Not on file documented as of this encounter Last Filed Vital Signs Vital Sign Reading Time Taken Comments Blood Pressure 100/62 02/09/2017 5:15 PM CDT Pulse 94 02/09/2017 5:15 PM CDT Temperature - - Respiratory Rate - - Oxygen Saturation 100% 02/09/2017 5:15 PM CDT Inhaled Oxygen Concentration - - Weight 45.4 kg (100 lb 2.8 oz) 02/08/2017 4:15 P M CDT Height 154.9 cm (5' 1 ) 02/08/2017 4:15 PM CDT Body Mass Index 18.93 02/08/2017 4:15 PM CDT documented in this encounter Discharge Disposition Disposition Code Departure Means Destination Discharge to home or self care documented in this encounter Plan of Treatment Not on file documented as of this encounter Procedures Procedure Name Priority Date/Time Associated Diagnosis Comments GLUCOSE POC Routine Gen Lab 02/09/2017 4:09 PM CDT GLUCOSE POC Routine Gen Lab 02/09/2017 11:22 AM CDT MAGNESIUM STAT 02/09/2017 10:05 AM CDT BASIC METABOLIC PANEL STAT 02/09/2017 10:05 AM CDT GLUCOSE POC Routine Gen Lab 02/09/2017 8:15 AM CDT DISCHARGE LABORATORY CUMULATIVE REPORT 02/09/2017 12:00 AM CDT GLUCOSE POC Routine Gen Lab 02/08/2017 11:57 PM CDT GLUCOSE POC Routine Gen Lab 02/08/2017 9:59 PM CDT GLUCOSE POC Routine Gen Lab 02/08/2017 8:59 PM CDT POTASSIUM, WHOLE BLOOD STAT 7 8:46 PM CDT INFECTION PREVENTION MRSA ONLY (STAPHYLOCOCCUS AUREUS) CULTURE RTNm 02/08/2017 8:46 PM CDT LIPID PANEL Routine Gen Lab 02/08/2017 8:46 PM CDT BASIC METABOLIC PANEL Routine Gen Lab 02/08/2017 8:46 PM CDT GLUCOSE POC Routine Gen Lab 02/08/2017 8:09 PM CDT URINALYSIS AND REFLEX TO MICROSCOPIC STAT 02/08/2017 7:25 PM CDT DRUGS OF ABUSE SCREEN, URINE WITHOUT CONFIRMATION STAT 02/08/2017 7:25 PM CDT URINALYSIS, MICROSCOPIC ONLY STAT 02/08/2017 7:25 PM CDT GLUCOSE POC Routine Gen Lab 02/08/2017 7:18 PM CDT GLUCOSE POC Routine Gen Lab 02/08/2017 6:22 PM CDT GLUCOSE POC Routine Gen Lab 02/08/2017 5:02 PM CDT XR CHEST 1 VIEW Routine 02/08/2017 3:59 PM CDT GLUCOSE POC Routine Gen Lab 02/08/2017 3:46 PM CDT BASIC METABOLIC PANEL STAT 02/08/2017 2:54 PM CDT GLUCOSE POC Routine Gen Lab 02/08/2017 2:17 PM CDT GLUCOSE POC Routine Gen Lab 02/08/2017 2:01 PM CDT GLUCOSE POC Routine Gen Lab 02/08/2017 1:06 PM CDT CRITICAL RESULT CALLBACK CHEMISTRY STAT 02/08/2017 12:01 PM CDT BLOOD GAS, VENOUS STAT 02/08/2017 12:01 PM CDT GLUCOSE POC Routine Gen Lab 02/08/2017 11:16 AM CDT DIFFERENTIAL AUTO STAT 02/08/2017 10:16 AM CDT POTASSIUM, WHOLE BLOOD STAT 7 10:16 AM CDT LACTATE POC Routine Gen Lab 02/08/2017 10:16 AM CDT CRITICAL RESULT CALLBACK CHEMISTRY STAT 02/08/2017 10:16 AM CDT CBC WITH AUTO DIFFERENTIAL STAT 02/08/2017 10:16 AM CDT TROPONIN I STAT 02/08/2017 10:16 AM CDT LIPASE STAT 02/08/2017 10:16 AM CDT HEMOGLOBIN A1C STAT 02/08/2017 10:16 AM CDT ETHANOL STAT 02/08/2017 10:16 AM CDT HEPATIC FUNCTION PANEL STAT 7 10:16 AM CDT BASIC METABOLIC PANEL STAT 02/08/2017 10:16 AM CDT POCT BETA-HYDROXYBUTYRATE WHOLE BLOOD Routine Gen Lab 02/08/2017 10:04 AM CDT GLUCOSE POC Routine Gen Lab 02/08/2017 10:01 AM CDT ELECTROCARDIOGRAPHY (ECG) 02/08/2017 ELECTROCARDIOGRAPHY (ECG) 02/08/2017 documented in this encounter Results * Glucose POC (02/09/2017 4:09 PM CDT) [facility] Glucose, POC 139 70 - 199 mg/dL [facility] Glucose comment 1 RN Notified [facility] Blood specimen (specimen) 02/09/2017 4:09 PM CDT 02/09/2017 4:09 PM CDT us Abdirahman Harrison MD POINT OF CARE TEST ORDERAB LES Final Result [facility] [place] [address] * Glucose POC (02/09/2017 11:22 AM CDT) Pathologist [facility] [place] Glucose, POC 101 70 - 199 mg/dL [facility] Blood specimen (specimen) 02/09/2017 11:22 AM CDT 02/09/2017 11:22 AM CDT Abdirahman Harrison MD POINT OF CARE TEST ORDERAB LES Final Result Performing Organization Address City/[facility]/ZIP Co de Phone Number [facility] Department [place] [address] * (ABNORMAL) Basic metabolic panel (02/09/2017 10:05 AM CDT) [facility] Sodium 136 135 - 145 mmol/L [facility] Potassium, pl 3.9 3.3 - 4.9 mmol/L [facility] Chloride 103 97 - 110 mmol/L [facility] CO2 22 22 - 32 mmol/L [facility] BUN 5(L) 8 - 25 mg/dL [facility] Glucose 168 70 - 199 mg/dL [facility] Creatinine 0.34(L) 0.60 - 1.10 mg/dL [facility] Calcium 8.9 8.5 - 10.3 mg/dL [facility] Anion gap 11 2 - 15 mmol/L [facility] Blood specimen (specimen) 02/09/2017 10:05 AM CDT 02/09/2017 10:36 AM CDT us Mary Viera MD LAB BLOOD ORDERABLES Final Result Performing Organization Address City/[facility]/ZIP Co de Phone Number [facility] Department [place] [address] * Magnesium (02/09/2017 10:05 AM CDT) [facility] Magnesium 1.4 1.4 - 2.5 mg/dL [facility] Blood specimen (specimen) 02/09/2017 10:05 AM CDT 02/09/2017 10:36 AM CDT Mary Viera MD LAB BLOOD ORDERABLES Final Result Performing Organization Address City/[facility]/ZIP Co de Phone Number [facility] Department [place] [address] * Glucose POC (02/09/2017 8:15 AM CDT) Glucose, POC 174 70 - 199 mg/dL [facility] Blood specimen (specimen) 02/09/2017 8:15 AM CDT 02/09/2017 8:15 AM CDT Hong Rodriguez MD POINT OF CARE TEST ORDERABLES Final Result Performing Organization Address [facility] [place] [address] * DISCHARGE LABORATORY CUMULATIVE REPORT (02/09/2017 12:00 AM CDT) Narrative 02/09/2017 12:00 AM CDT Ordered by an unspecified provider. Marie Mak MD LAB BLOOD ORDERABLES Chanell l Result * Glucose POC (02/08/2017 11:57 PM CDT) Glucose, POC 149 70 - 199 mg/dL [facility] Blood specimen (specimen) 02/08/2017 11:57 PM CDT 02/08/2017 11:57 PM CDT Hong Rodriguez MD POINT OF CARE TEST ORDERABLES Final Result Performing Organization Address City/[facility]/ZIP Co de Phone Number [facility] Department [place] [address] * Glucose POC (02/08/2017 9:59 PM CDT) Glucose, POC 131 70 - 199 mg/dL [facility] Blood specimen (specimen) 02/08/2017 9:59 PM CDT 02/08/2017 9:59 PM CDT Hong Rodriguez MD POINT OF CARE TEST ORDERABLES Final Result Performing Organization Address City/[facility] Co de Phone Number [facility] Department [place] [address] * Glucose POC (02/08/2017 8:59 PM CDT) Pathologist [facility] [place] Glucose, POC 156 70 - 199 mg/dL [facility] Blood specimen (specimen) 02/08/2017 8:59 PM CDT 02/08/2017 8:59 PM CDT Hong Rodriguez MD POINT OF CARE TEST ORDERABLES Final Result Performing Organization Address [facility] de Phone Number [facility] Department [place] [address] * MRSA culture (02/08/2017 8:46 PM CDT) Pathologist [facility] Report Final Report: Negative [facility] Nasal 02/08/2017 8:46 PM CDT 02/08/2017 11:48 PM CDT Narrative [facility] - 02/08/2017 11:48 PM CDT Antonieta Pinto LAB MICROBIOLOGY - GENERAL ORDER RULA Final Result Performing Organization Address [facility] Co de Phone Number [facility] [place] [address] * (ABNORMAL) Basic metabolic panel (02/08/2017 8:46 PM CDT) [facility] Sodium 138 135 - 145 mmol/L [facility] Potassium, pl 3.2(L) 3.3 - 4.9 mmol/L [facility] Chloride 110 97 - 110 mmol/L [facility] CO2 18(L) 22 - 32 mmol/L [facility] BUN 8 8 - 25 mg/dL [facility] Glucose 186 70 - 199 mg/dL [facility] Creatinine 0.37(L) 0.60 - 1.10 mg/dL [facility] Calcium 7.7(L) 8.5 - 10.3 mg/dL [facility] Anion gap 10 2 - 15 mmol/L [facility] Blood specimen (specimen) 02/08/2017 8:46 PM CDT 02/08/2017 9:09 PM CDT us Antonieta Pinto LAB BLOOD ORDERABLES Final Resul t [facility] Department [place] [address] * Lipid panel (02/08/2017 8:46 PM CDT) Cholesterol 160 30 - 200 mg/dL [facility] Comment: Interpretive Data Desirable: ?<200 mg/dL Borderline high: ??200-239 mg/dL High: ? > or = 240 mg/dL Literature Reference: National Cholesterol Education Program (NCEP) Expert Panel on Detection, Evaluation, and Treatment of High Blood Cholesterol in Adults (Adult Treatment Panel III). ??Circulation 2004; 110:227. Current interpretive data was last revised on 2015. Triglycerides 66 0 - 150 mg/dL [facility] Comment: Interpretive Data Desirable: ? < 150 mg/dL Borderline High: ? 150 - 199 mg/dL High: ?200 - 499 mg/dL Very High: ? > or = 499 mg/dL Literature Reference: See Cholesterol Current interpretive data was last revised on 2015. HDL 57 >=40 mg/dL [facility] Comment: Interpretive Data Less than 40 mg/dL - low; A major risk factor for heart disease. Greater than or equal to 60 mg/dL - High; ??considered protective of heart disease. Literature Reference: See Cholesterol Current interpretive data was last revised on 2015. LDL, calculated 90 10 - 129 mg/dL [facility] Comment: Interpretive Data Optimal: ? < 100 mg/dL Near Optimal: ?100 - 129 mg/dL Borderline High: ?? 130 - 159 mg/dL High: ?160 - 189 mg/dL Very high: ? > or = 190 mg/dL Literature Reference: See Cholesterol Current interpretive data was last revised on 2015. Non-HDL Cholesterol 103 mg/dL [facility] Comment: Interpretive Data When triglycerides are >200 mg/dL, non-HDL C is a secondary target of therapy, with a goal 30 mg/dL higher than the identified LDL-C goal. Reference: ??See Cholesterol Reference. Current interpretive data was last revised 2015. Blood specimen (specimen) 02/08/2017 8:46 PM CDT 02/08/2017 9:09 PM CDT [employer] LAB BLOOD ORDERABLES Final Resul t Performing Organization Address City/[facility] Co de Phone Number [facility] Department [place] [address] * (ABNORMAL) Potassium, Whole Blood (02/08/2017 8:46 PM CDT) [facility] Potassium, bld 3.1(L) 3.3 - 4.9 mmol/L [facility] Comment:reviewed Blood specimen (specimen) 02/08/2017 8:46 PM CDT 02/08/2017 9:07 PM CDT [employer] LAB BLOOD ORDERABLES Final Resul t [facility] Department [place] [address] * Glucose POC (02/08/2017 8:09 PM CDT) Glucose, POC 176 70 - 199 mg/dL [facility] Blood specimen (specimen) 02/08/2017 8:09 PM CDT 02/08/2017 8:09 PM CDT Hong Rodriguez MD POINT OF CARE TEST ORDERABLES Final Result [facility] Department [place] [address] * Drug screen, urine (02/08/2017 7:25 PM CDT) Amphetamines, Class None detected [facility] Comment: Interpretive Data Immunoassay Screen cutoff level 500 ng/mL. Samples containing greater than 500 ng/mL of amphetamine/methamphetamine or other cross-reacting substances are reported as presumptive and submitted for confirmatory testing. See separate confirmatory results for final interpretation.Results are to be used for medical purposes only. ? Current interpretive data was last revised 2015. Barbiturates, Class None detected [facility] Comment: Interpretive Data Immunoassay Screen cutoff level 200 ng/mL. Samples containing greater than 200 ng/mL of barbiturates or other cross-reacting substances are reported as presumptive and submitted for confirmatory testing.See separate confirmatory results for final interpretation.Results are to be used for medical purposes only. Current interpretive data was last revised 2015. Benzodiazepines, ur None detected [facility] Comment: Interpretive Data Immunoassay Screen cutoff level 200 ng/mL. Samples containing greater than 200 ng/mL of benzodiazepines or other cross-reacting substances are reported as screen positive, but are not routinely submitted for confirmatory testing. If confirmation is required, please contact the laboratory. Results are to be used for medical purposes only. Current interpretive data was last revised 2015. Cannabinoids, Screen None detected [facility] Comment: Interpretive Data Immunoassay Screen cutoff level 50 ng/mL. Samples containing greater than 50 ng/mL of cannabinoids or other cross-reacting substances are reported as presumptive and submitted for confirmatory testing on obstetrics and pediatric patients only. ??Cannabinoids screen result is reported as screen positive for all other adults;confirmation is not performed unless requested. Results are to be used for medical purposes only. ? Current interpretive data was last revised 2015. Cocaine metabolite None detected [facility] Comment: Interpretive Data Immunoassay Screen cutoff level 150 ng/mL. Samples containing greater than 150 ng/mL of cocaine metabolite or other cross-reacting substances are reported as presumptive and submitted for confirmatory testing. See separate confirmatory results for final interpretation. Results are to be used for medical purposes only. Current interpretive data was last revised 2015. Methadone, ur None detected [facility] Comment: Interpretive Data Immunoassay Screen cutoff level 300 ng/mL. Samples containing greater than 300 ng/mL of methadone or other cross-reacting substances are reported as presumptive and submitted for confirmatory testing. ??See separate confirmatory results for final interpretation. ??Results are to be used for medical purposes only. ? Current interpretive data was last revised 2015. Opiates, ur None detected [facility] Comment: Interpretive Data Immunoassay Screen cutoff level 300 ng/mL. Samples containing greater than 300 ng/mL of opiates or other cross-reacting substances are reported as presumptive and submitted for confirmatory testing. ??See separate confirmatory results for final interpretation. ??Testing does not include opioids. ??Results are to be used for medical purposes only. Current interpretive data was last revised 2015. Oxycodone, ur None detected [facility] Comment: Interpretive Data Immunoassay Screen cutoff level 100 ng/mL. ??Samples containing greater than 100 ng/mL of oxycodone or other cross-reacting substances are reported as presumptive and submitted for confirmatory testing. ??See separate confirmatory results for final interpretation. ??Results are to be used for medical purposes only. Current interpretive data was last revised on 2015. Phencyclidine, ur None detected [facility] Comment: Interpretive Data Immunoassay Screen cutoff level 25 ng/mL. Samples containing greater than 25 ng/mL of phencyclidine (PCP) or other cross-reacting substances are reported as presumptive and submitted for confirmatory testing. ??See separate confirmatory results for final interpretation. Results are to be used for medical purposes only. ? Current interpretive data was last revised 2015. Urine 02/08/2017 7:25 PM CDT 02/08/2017 10:27 PM CDT Sivan Pisano MD LAB URINE ORDERABLES Final Result Performing Organization Address [facility] Co de Phone Number [facility] [place] [address] * (ABNORMAL) Urinalysis, microscopic only (02/08/2017 7:25 PM CDT) RBC, ur 29(H) 0 - 3 /HPF [facility] WBC, ur 9(H) 0 - 5 /HPF [facility] Bacteria, ur Negative Trace [facility] Epithelial cells, renal, ur 0 0 - 0 /HPF [facility] Epithelial cells, squamous, ur >20 /LPF [facility] Mucus, ur Small /HPF [facility] Urine 02/08/2017 7:25 PM CDT 02/08/2017 9:34 PM CDT Sivan Pisano MD LAB URINE ORDERABLES Final Result Performing Organization Address [facility] de Phone Number [facility] [place] [address] * (ABNORMAL) Urinalysis reflex to microscopic (02/08/2017 7:25 PM CDT) Color, ur Yellow Yellow [facility] Clarity, ur Cloudy(A) Clear [facility] Specific gravity, ur 1.023 1.003 - 1.030 [facility] pH, ur 6.0 5.0 - 8.0 [facility] Albumin, ur 1+(A) Trace [facility] Glucose, ur ql 3+(A) Negative [facility] Comment:Verified Ketones, ur 2+ Negative [facility] Comment:Verified Bilirubin, ur Negative Negative [facility] Blood, ur 3+(A) Negative [facility] Urobilinogen, ur <2.0 <2.0 mg/dL [facility] Nitrites, ur Negative Negative [facility] Leukocyte esterase, ur Negative Negative [facility] Urine 02/08/2017 7:25 PM CDT 02/08/2017 9:34 PM CDT us Sivan Pisano MD LAB URINE ORDERABLES Final Result Performing Organization Address [facility] Co de Phone Number [facility] [place] [address] * Glucose POC (02/08/2017 7:18 PM CDT) Glucose, POC 174 70 - 199 mg/dL [facility] Blood specimen (specimen) 02/08/2017 7:18 PM CDT 02/08/2017 7:18 PM CDT us Hong Rodriguez MD POINT OF CARE TEST ORDERABLES Final Result Performing Organization Address [facility] de Phone Number [facility] Department [place] [address] * Glucose POC (02/08/2017 6:22 PM CDT) Glucose, POC 128 70 - 199 mg/dL [facility] Blood specimen (specimen) 02/08/2017 6:22 PM CDT 02/08/2017 6:22 PM CDT us Hong Rodriguez MD POINT OF CARE TEST ORDERABLES Final Result Performing Organization Address [facility] de Phone Number [facility] [place] [address] * Glucose POC (02/08/2017 5:02 PM CDT) Glucose, POC 125 70 - 199 mg/dL [facility] Blood specimen (specimen) 02/08/2017 5:02 PM CDT 02/08/2017 5:02 PM CDT us Hong Rodriguez MD POINT OF CARE TEST ORDERABLES Final Result [facility] Department [place] [address] * XR Chest 1 Vw (02/08/2017 3:59 PM CDT) Anatomical Region Laterality Modality Body, Chest N/A Radiographic Sarahy ging 02/08/2017 3:59 PM CDT Narrative 02/08/2017 3:59 PM CDT TIMI CARRANZA M.D. FINAL REPORT ACC# ??Date Time ??Exam [id number] Feb 08, 2017 10:59:00 [id number] Chest 1 view Frontal EXAMINATION: ??1 view chest radiograph IMPRESSION: ??No prior studies are available for comparison. No air space opacity, effusion, or pneumothorax. No edema. Electronically signed by: Timi Carranza M.D. Requested By: SIVAN PISANO M.D. Dictated By: ?? TIMI CARRANZA M.D. ??on Jan ??2016 11:24A This document has been electronically signed by: TIMI CARRANZA M.D. on Jan ??2016 11:24A [id number] CARRANZA M.D. FINAL REPORT Attending: ??UNKNOWN, ??NOTINFILE Requesting: ??STEPHANY, ??SIVAN Requesting Fax: ?? Attending Fax: ?? Attending ID: ??[id number] Requesting ID: ??[id number] Report To 1 ID: ??[id number] ? Report To 1 Name: ??, ?? Report To 1 FAX: ?? [facility] Order #: ?? Procedure Note Miscellaneous, Not In File / Provider, MD Marie - 02/08/2017 TIMI CARRANZA M.D. FINAL REPORT ACC# Date Time Exam [id number] Feb 08, 2017 10:59:00 [id number] Chest 1 view Frontal EXAMINATION: 1 view chest radiograph IMPRESSION: No prior studies are available for comparison. No air space opacity, effusion, or pneumothorax. No edema. Electronically signed by: Timi Carranza M.D. Requested By: SIVAN PISANO M.D. Dictated By: TIMI CARRANZA M.D. on Feb 08 2017 11:24A This document has been electronically signed by: TIMI CARRANZA M.D. on Feb 08 2017 11:24A [id number] CARRANZA M.D. FINAL REPORT Attending: UNKNOWN, NOTINFILE Requesting: SIVAN PISANO Requesting Fax: Attending Fax: Attending ID: [id number] Requesting ID: [id number] Report To 1 ID: [id number] Report To 1 Name: , Report To 1 FAX: [facility] Order #: us Sivan Pisano MD IMG XR PROCEDURES Final Res ult * Glucose POC (02/08/2017 3:46 PM CDT) [facility] Glucose, POC 115 70 - 199 mg/dL [facility] Blood specimen (specimen) 02/08/2017 3:46 PM CDT 02/08/2017 3:46 PM CDT Hong Rodriguez MD POINT OF CARE TEST ORDERABLES Final Result [facility] [place] [address] * (ABNORMAL) Basic metabolic panel (02/08/2017 2:54 PM CDT) [facility] Sodium 136 135 - 145 mmol/L [facility] Potassium, pl 5.4(H) 3.3 - 4.9 mmol/L [facility] Chloride 109 97 - 110 mmol/L [facility] CO2 13(L) 22 - 32 mmol/L [facility] BUN 8 8 - 25 mg/dL [facility] Glucose 153 70 - 199 mg/dL [facility] Creatinine 0.33(L) 0.60 - 1.10 mg/dL [facility] Calcium 8.4(L) 8.5 - 10.3 mg/dL [facility] [facility] Anion gap 14 2 - 15 mmol/L [facility] Blood specimen (specimen) 02/08/2017 2:54 PM CDT 02/08/2017 3:20 PM CDT Sivan Pisano MD LAB BLOOD ORDERABLES Final Result Performing Organization Address City/[facility]/ZIP Co de Phone Number [facility] [place] [address] * Glucose POC (02/08/2017 2:17 PM CDT) Glucose, POC 158 70 - 199 mg/dL [facility] Blood specimen (specimen) 02/08/2017 2:17 PM CDT 02/08/2017 2:17 PM CDT Teddy Solis MD POINT OF CARE TEST ORDERABLES Final Result Performing Organization Address City/[facility] Co de Phone Number [facility] [place] [address] * Glucose POC (02/08/2017 2:01 PM CDT) Glucose, POC 131 70 - 199 mg/dL [facility] Blood specimen (specimen) 02/08/2017 2:01 PM CDT 02/08/2017 2:01 PM CDT us Teddy Solis MD POINT OF CARE TEST ORDERABLES Final Result Performing Organization Address City/[facility] Co de Phone Number [facility] [place] [address] * Glucose POC (02/08/2017 1:06 PM CDT) Glucose, POC 166 70 - 199 mg/dL [facility] Blood specimen (specimen) 02/08/2017 1:06 PM CDT 02/08/2017 1:06 PM CDT Teddy Solis MD POINT OF CARE TEST ORDERABLES Final Result Performing Organization Address City/[facility]/ZIP Co de Phone Number [facility] [place] [address] * Critical Result Callback Chemistry (02/08/2017 12:01 PM CDT) Pathologist [facility] [place] Date Notified [id number] [facility] Time Notified 1228 [facility] TestName pH maurice & Co2 totl Maurice [facility] Called/Read Back satish sparks [facility] Credentials RN [facility] Called By clm [facility] Blood specimen (specimen) 02/08/2017 12:01 PM CDT 02/08/2017 12:08 PM CDT Sivan Pisano MD LAB BLOOD ORDERABLES Final Result Performing Organization Address City/[facility] Co de Phone Number [facility] Department [place] [address] * (ABNORMAL) Blood gas, venous (02/08/2017 12:01 PM CDT) Pathologist [facility] [place] pH, Venous 7.18(C) [facility] PCO2, Venous 27 mmHg [facility] PO2, Venous 37 mmHg [facility] CO2, total calculated, venous 10(C) 21 - 30 mmol/L [facility] Percent inspired oxygen, venous Not Applicable [facility] Vol iO2 venous Not Applicable [facility] Blood specimen (specimen) 02/08/2017 12:01 PM CDT 02/08/2017 12:06 PM CDT Sivan Pisano MD LAB BLOOD ORDERABLES Final Result Performing Organization Address City/[facility] Co de Phone Number [facility] [place] [address] * (ABNORMAL) Glucose POC (02/08/2017 11:16 AM CDT) Glucose, POC 277(H) 70 - 199 mg/dL [facility] Glucose comment 1 RN Notified [facility] Blood specimen (specimen) 02/08/2017 11:16 AM CDT 02/08/2017 11:16 AM CDT us Notinfile Unknown POINT OF CARE TEST ORDERABLES Final Result Performing Organization Address [facility] [place] [address] * (ABNORMAL) Hemoglobin A1c (02/08/2017 10:16 AM CDT) [facility] Hgb A1C 8.7(H) 4.0 - 6.0 % [facility] Estimated Average Glucose 203 mg/dL [facility] Comment: The ADA recommends reporting an estimated Average Glucose (eAG) with all Hemoglobin A1c results using the equation derived from a study of 507 normal and diabetic adults. ??Minority populations were underrepresented and children were not included. ?? (Diabetes Care 31:0417-9561, 2007). ??The eAG is not equivalent to a fasting glucose. Blood specimen (specimen) 02/08/2017 10:16 AM CDT 02/08/2017 10:38 AM CDT us Sivan Pisano MD LAB BLOOD ORDERABLES Final Result Performing Organization Address City/[facility] [place] [address] * Troponin I (02/08/2017 10:16 AM CDT) [facility] Troponin I <0.03 0.00 - 0.03 ng/mL [facility] Comment: Interpretive Data Serial determinations are recommended for the diagnosis of myocardial infarction (Third [place] Definition of Myocardial Infarction. ??J Am Alexander Cardiol 2012;60:1581-98). Current interpretive data was last revised on 13. Blood specimen (specimen) 02/08/2017 10:16 AM CDT 02/08/2017 10:33 AM CDT Sivan Pisano MD LAB BLOOD ORDERABLES Final Result Performing Organization Address [facility] Co de Phone Number [facility] [place] [address] * Critical Result Callback Chemistry (02/08/2017 10:16 AM CDT) Date Notified [id number] [facility] Time Notified 1102 [facility] TestName Anion Gap [facility] Called/Read Back Sivan HUITRON [facility] Credentials MD HU[facility]RON [facility] Called By ct TOMY [facility] Blood specimen (specimen) 02/08/2017 10:16 AM CDT 02/08/2017 10:33 AM CDT Sivan Pisano MD LAB BLOOD ORDERABLES Final Result Performing Organization Address [facility] de Phone Number [facility] [place] [address] * (ABNORMAL) Basic metabolic panel (02/08/2017 10:16 AM CDT) Sodium 132(L) 135 - 145 mmol/L [facility] Potassium, pl 3.6 3.3 - 4.9 mmol/L [facility] Chloride 93(L) 97 - 110 mmol/L [facility] CO2 11(L) 22 - 32 mmol/L [facility] BUN 11 8 - 25 mg/dL [facility] Glucose 306(H) 70 - 199 mg/dL [facility] Creatinine 0.45(L) 0.60 - 1.10 mg/dL [facility] Calcium 10.1 8.5 - 10.3 mg/dL [facility] Anion gap 28(C) 2 - 15 mmol/L [facility] Blood specimen (specimen) 02/08/2017 10:16 AM CDT 02/08/2017 10:33 AM CDT Sivan Pisano MD LAB BLOOD ORDERABLES Final Result Performing Organization Address [facility] Co de Phone Number [facility] [place] [address] * Hepatic function panel (02/08/2017 10:16 AM CDT) AST 17 10 - 45 Units/L [facility] ALT 10 7 - 45 Units/L [facility] Alk phos 85 40 - 130 Units/L [facility] Bilirubin, total 1.1 0.1 - 1.2 mg/dL [facility] Bilirubin, direct 0.2 0.1 - 0.3 mg/dL [facility] Protein, pl 7.9 6.5 - 8.5 g/dL [facility] Albumin 4.7 3.5 - 5.0 g/dL [facility] Blood specimen (specimen) 02/08/2017 10:16 AM CDT 02/08/2017 10:33 AM CDT Sivan Pisano MD LAB BLOOD ORDERABLES Final Result Performing Organization Address City/[facility] Co de Phone Number [facility] [place] [address] * Lipase (02/08/2017 10:16 AM CDT) Lipase 14 10 - 99 Units/L [facility] Blood specimen (specimen) 02/08/2017 10:16 AM CDT 02/08/2017 10:33 AM CDT Sivan Pisano MD LAB BLOOD ORDERABLES Final Result Performing Organization Address [facility] Co de Phone Number [facility] [place] [address] * Ethanol (02/08/2017 10:16 AM CDT) Ethanol <10.0 <=10.0 mg/dL [facility] Comment: Interpretive Data: If ethanol is the only drug taken, the blood level can be roughly correlated with the clinical findings: 0 - 100 mg/dL ?? Subclinical findings 100-200 mg/dL ?? Emotional instability 150-200 mg/dL ?? Confusion 250-400 mg/dL ?? Stupor 350-500 mg/dL ?? Coma 500-up ??mg/dL ?? Possible Current interpretive data was last revised on 2008. Blood specimen (specimen) 02/08/2017 10:16 AM CDT 02/08/2017 10:33 AM CDT Sivan Pisano MD LAB BLOOD ORDERABLES Final Result Performing Organization Address [facility] Co de Phone Number [facility] [place] [address] * (ABNORMAL) Differential, auto (02/08/2017 10:16 AM CDT) Pathologist [facility] [place] Neutrophil pct 58.3 % [facility] Imm gran pct 3.3 % [facility] Lymphocyte pct 29.3 % [facility] Monocyte pct 8.3 % [facility] Eosinophil pct 0.1 % [facility] Basophil pct 0.7 % [facility] Neutrophil abs 4.02 1.70 - 6.50 K/cumm [facility] Imm gran abs 0.23(H) 0.00 - 0.10 K/cumm [facility] Lymphocyte abs 2.02 0.80 - 3.30 K/cumm [facility] Monocyte abs 0.57 0.20 - 0.80 K/cumm [facility] Eosinophil abs 0.01 0.00 - 0.50 K/cumm [facility] Basophil abs 0.05 0.00 - 0.10 K/cumm [facility] Blood specimen (specimen) 02/08/2017 10:16 AM CDT 02/08/2017 10:34 AM CDT us Sivan Pisano MD LAB BLOOD ORDERABLES Final Result Performing Organization Address City/[facility]/ZIP Co de Phone Number [facility] [place] [address] * (ABNORMAL) CBC with auto differential (02/08/2017 10:16 AM CDT) WBC 6.90 3.80 - 9.90 K/cumm [facility] RBC 4.83 3.90 - 5.20 M/cumm [facility] Hgb 13.9 11.9 - 15.5 g/dL [facility] Hct 40.9 35.6 - 45.5 % [facility] MCV 84.7 81.3 - 96.4 fL [facility] MCH 28.8 27.1 - 33.3 pg [facility] MCHC 34.0 32.3 - 35.7 g/dL [facility] RDW CV 13.3 11.1 - 14.9 % [facility] RDW SD 40.7 35.7 - 48.1 fL [facility] Plt 603(H) 150 - 400 K/cumm [facility] MPV 8.8(L) 9.1 - 12.3 fL [facility] NRBC 0.0 0.0 - 0.2 % [facility] NRBC abs 0.00 0.00 - 0.01 K/cumm [facility] Blood specimen (specimen) 02/08/2017 10:16 AM CDT 02/08/2017 10:34 AM CDT us Sivan Pisano MD LAB BLOOD ORDERABLES Final Result Performing Organization Address City/[facility]/ZIP Co de Phone Number [facility] [place] [address] * Potassium, Whole Blood (02/08/2017 10:16 AM CDT) Pathologist [facility] [place] Potassium, bld 3.6 3.3 - 4.9 mmol/L [facility] Blood specimen (specimen) 02/08/2017 10:16 AM CDT 02/08/2017 10:22 AM CDT us Sivan Pisano MD LAB BLOOD [place] [address] * Lactate POC (02/08/2017 10:16 AM CDT) [facility] Lactate POC i-STAT 1.4 0.7 - 2.2 mmol/L [facility] Blood specimen (specimen) 02/08/2017 10:16 AM CDT 02/08/2017 10:16 AM CDT us Notinfile Unknown LAB BLOOD ORDERABLES Final Res ult Performing Organization Address [facility] [place] [address] * (ABNORMAL) POCT BETA-HYDROXYBUTYRATE WHOLE BLOOD (02/08/2017 10:04 AM CDT) [facility] Beta Hydroxybutyrate , Whole Blood, Precision X-tra POC 6.4(C) 0.0 - 0.5 mmol/L [facility] Comment:Testing Performed at POC, Critical result reported directly to physician. Blood specimen (specimen) 02/08/2017 10:04 AM CDT 02/08/2017 10:04 AM CDT us Adbirahman Harrison MD LAB BLOOD ORDERABLES Final Result Performing Organization Address City/[facility]/ZIP Co de Phone Number [facility] [place] [address] * (ABNORMAL) Glucose POC (02/08/2017 10:01 AM CDT) Glucose, POC 312(H) 70 - 199 mg/dL [facility] Blood specimen (specimen) 02/08/2017 10:01 AM CDT 02/08/2017 10:01 AM CDT us Notinfile Unknown POINT OF CARE TEST ORDERABLES Final Result [facility] [place] [address] * ELECTROCARDIOGRAPHY (ECG) (02/08/2017) us Provider Scanning ECG ORDERABLES Edited Result - Final * ELECTROCARDIOGRAPHY (ECG) (02/08/2017) us Provider Scanning ECG ORDERABLES Edited Result - Final documented in this encounter Visit Diagnoses Not on filedocumented in this encounter Care Teams Legal Project Manager Relationship Specialty Start Date End Date No, Physician PCP - General 09/21/16 02/14/17 documented as of this encounter
--- OUTSIDE RECORDS SUMMARY | 2024-05-10 18:43 | XMS_ITS | Encounter Summary ---
Author Organization [facility] Care Team Providers Care Carpet Winder Name Role Phone Unavailable Primary Care Provider Unavailabl e Encounter Details Date Type Department Care Team (Latest Contact Info) Description 08/15/2014 9:22 PM CDT - 08/16/2014 1:31 AM CDT Hospital Encounter [facility] Other chest pain; Type I diabetes mellitus (HCC); Encounter for long-term (current) use of insulin (HCC) Social History Tobacco Use Types Packs/Day Years Used Date Smoking Tobacco: Never Assessed Comments Unknown Sex and Gender Information Value Date Recorded Sex Assigned at Not on file 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 Gender Identity Not on file Sexual Orientation Not on file documented as of this encounter Last Filed Vital Signs Vital Sign Reading Time Taken Comments Blood Pressure 99/61 08/16/2014 1:31 AM CDT Pulse 96 08/16/2014 1:31 AM CDT Temperature - - Respiratory Rate - - Oxygen Saturation - - Inhaled Oxygen Concentration - - Weight - - Height - - Body Mass Index - - documented in this encounter Plan of Treatment Not on file documented as of this encounter Procedures Procedure Name Priority Date/Time Associated Diagnosis Comments CHEST RADIOGRAPHY, FRONTAL (AP), LATERAL Routine 08/16/2014 1:08 AM CDT BLOOD GLUCOSE, POC Routine 08/15/2014 9: 52 PM CDT DISCHARGE LABORATORY CUMULATIVE REPORT 08/15/2014 documented in this encounter Results * CHEST RADIOGRAPHY, FRONTAL (AP), LATERAL (08/16/2014 1:08 AM CDT) Anatomical Region Laterality Modality N/A Radiographic Sarahy ging 08/16/2014 1:08 AM CDT Narrative 08/16/2014 7:36 AM CDT SARAH ARAUJO M.D. ERMA BOUDREAUX, FINAL REPORT The radiology attending physician has personally reviewed this study, and has reviewed and/or edited this written report and agrees with it. ACC# ??Date Time ??Exam [id number] Aug 16, 2014 01:08:00 [id number] CHEST 2 VIEWS EXAMINATION: ?? Chest 2 views HISTORY: Chest pain FINDINGS: PA and lateral radiographs of the chest are submitted for interpretation with no prior studies available for comparison. The lungs are clear without focal consolidation, pleural effusions, or pneumothorax. The heart size and mediastinal contour are normal. IMPRESSION: ?? Clear lungs Requested By: CECILIA DICKINSON M.D. Dictated By: ?? ERMA BOUDREAUX, ?? on Aug 16 2014 ??1:16A This document has been electronically signed by: SARAH ARAUJO M.D. on Aug 16 2014 ??7:36A Procedure Note Provider, MD Marie - 08/25/2016 SARAH ARAUJO M.D. ERMA BOUDREAUX, FINAL REPORT The radiology attending physician has personally reviewed this study, and has reviewed and/or edited this written report and agrees with it. ACC# Date Time Exam [id number] Aug 16, 2014 01:08:00 [id number] CHEST 2 VIEWS EXAMINATION: Chest 2 views HISTORY: Chest pain FINDINGS: PA and lateral radiographs of the chest are submitted for interpretation with no prior studies available for comparison. The lungs are clear without focal consolidation, pleural effusions, or pneumothorax. The heart size and mediastinal contour are normal. IMPRESSION: Clear lungs Requested By: CECILIA DICKINSON M.D. Dictated By: ERMA BOUDREAUX, on Aug 16 2014 1:16A This document has been electronically signed by: SARAH ARAUJO M.D. on Aug 16 2014 7:36A Result [facility] Historical Provider IMG XR PROCEDURES Final R esult * (ABNORMAL) Blood glucose, POC (08/15/2014 9:52 PM CDT) Pathologist [facility] Glucose, POC, bld 323(H) 70 - 199 mg/dl HISTORICAL RESULTS Blood specimen (specimen) 08/15/2014 9:52 PM CDT Result [facility] Provider LAB BLOOD ORDERABLES Chanell l Result HISTORICAL RESULTS * DISCHARGE LABORATORY CUMULATIVE REPORT (08/15/2014) Narrative 08/15/2014 Ordered by an unspecified provider. Result [facility] Historical Provider LAB BLOOD ORDERABLES Chanell l Result documented in this encounter Visit Diagnoses Diagnosis Other chest pain Type I diabetes mellitus (HCC) Type I (juvenile type) diabetes mellitus without mention of complication, not stated as uncontrolled Encounter for long-term (current) use of insulin (HCC) Encounter for long-term (current) use of insulin documented in this encounter
--- OUTSIDE RECORDS SUMMARY | 2024-05-10 18:43 | XMS_ITS | Encounter Summary ---
Author Organization [facility] Healthcare Address [address] [place] [address] Care Team Providers Care Bobbin Disker Name Role Phone Unavailable Primary Care Provider Unavailabl e Encounter Details Date Type Department Care Team (Late st Contact Info) Description 03/14/2009 12:53 PM CASKET TRIMMER - 03/14/2009 11:59 PM CASKET TRIMMER Hospital Encounter [facility] Jolanta Ayala MD [address] [place] [address] [place] [address] Pain in soft tissues of limb Social History Tobacco Use Types Packs/Day Years Used Date Smoking Tobacco: Never Assessed Comments Unknown Sex and Gender Information Value Date Recorded Sex Assigned at Not on file 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
--- OUTSIDE RECORDS SUMMARY | 2024-05-10 18:43 | XMS_ITS | Encounter Summary ---
Author Organization [facility] Healthcare Address [address] [place] [address] Care Team Providers Care Physical Metallurgist Name Role Phone No, Physician Primary Care Provider [phone] Encounter Details Date Type Department Care Team (Latest Contact Info) Description 09/21/2016 8:06 PM CDT - 09/22/2016 12:05 AM CDT Hospital Encounter [facility] [address] [place] [address] Lowell Christine MD [address] [place] [address] [address] [address] Discharge Disposition: Discharge to home or self care Social History Tobacco Use Types Packs/Day Years Used Date Smoking Tobacco: Never Assessed Comments Unknown Sex and Gender Information Value Date Recorded Sex Assigned at Not on file 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
--- OUTSIDE RECORDS SUMMARY | 2024-05-10 18:43 | XMS_ITS | Encounter Summary ---
Author Organization [facility] Healthcare Address [address] [place] [address] Care Team Providers Care Nuclear Physicist Name Role Phone Jolanta Freeman MD Primary Care Provider Encounter Details Date Type Department Care Team (Latest Contact Info) Description 12/09/2017 2:10 PM CDT - 12/09/2017 11:59 PM CDT Hospital Encounter [facility] Discharge Disposition: Discharge to home or self care Social History Tobacco Use Types Packs/Day Years Used Date Smoking Tobacco: Never Smokeless Tobacco: Never Comments No Sex and Gender Information Value Date Recorded Sex Assigned at Not on file Legal Sex Female 3:13 AM [employer]TS [employer] Gender Identity Not on file Sexual Orientation [...] 01/03/20 18 documented as of this encounter Discharge Disposition Disposition Code Departure Means Destination Discharge to home or self care documented in this encounter Plan of Treatment Not on file documented as of this encounter Visit Diagnoses Not on filedocumented in this encounter Care Teams Nuclear Physicist Relationship Specialty Start Date End Date Jolanta Freeman MD PCP - General 12/07/17 03/28/18 documented as of this encounter
--- OUTSIDE RECORDS SUMMARY | 2024-05-10 18:52 | XMS_ITS | Encounter Summary ---
Author Organization [facility] Address [address] [place] [address] Care Team Providers Care Grinder Set Up Operator Thread Tool Name Role Phone Jolanta Freeman MD Primary Care Provider + [phone] Reason for Visit * Reason Comments Diabetes Encounter Details Date Type Department Care Team (Late st Contact Info) Description 02/07/2018 2:00 PM CDT Office Visit [facility] Endocrinology, Diabetes and Metabolism [address] [place] [address] Pawan Ram MD [address] [place] [address] Type 1 diabetes mellitus with ketoacidosis without coma (HCC) (Primary Dx) Social History Tobacco Use Types Packs/Day Years Used Date Smoking Tobacco: Never Smokeless Tobacco: Never Alcohol Use Standard Drinks/Week Comments Yes 0 (1 standard drink = 0.6 oz pur e alcohol) occasional Sex and Gender Information Value Date Recorded Sex Assigned at Not on file Gender Identity Not on file Sexual Orientation Not on file documented as of this encounter Last Filed Vital Signs Vital Sign Reading Time Taken Comments Blood Pressure 98/56 02/07/2018 2:10 PM CDT Pulse 123 02/07/2018 2:10 PM CDT Temperature 36.2 ??C (97.1 ??F) 02/07/2018 2:10 PM CD T Respiratory Rate - - Oxygen Saturation 97% 02/07/2018 2:10 PM CDT Inhaled Oxygen Concentration - - Weight 55.2 kg (121 lb 11.2 oz) 02/07/2018 2:10 PM CDT Height 156 cm (5' 1.42 ) 02/07/2018 2:10 PM CDT Body Mass Index 22.68 02/07/2018 2:10 PM CDT documented in this encounter Functional Status Functional Status Response Date of Assess ment Is person deaf or have serious hearing difficult y? No 12/26/2017 Is person blind or have serious difficulty seein g? No 12/26/2017 Does person have serious dif ficulty walking/climbing stairs? No 12/26/2017 Does person have difficulty dressing/bathing? No 12/26/2017 Does person have difficulty doing errands alone? No 12/26/2017 Cognitive Status Response Date of Assessm ent Does person have difficulty concentrating/remembering/making decisions? No 12/26/2017 documented as of this encounter Progress Notes * Pawan Ram MD - 02/07/2018 3:04 PM CDT Karina Fuchs is a 22 y.o. female with No diagnosis found. Diabetes sinace age 12 On pump few motnhs stopped with pregnacy off inusli pump lantus 10 humalog 6-8 utnis melas 1:8 carbs Cf1U for 50>[address] Jan [address] Lost old [address] eye dr To be scheduled BP 98/56 Pulse 123 Temp 97.1 ??F (36.2 ??C) (Oral) Ht 5' 1.42 (1.56 m) Wt 121 lb 11.2 oz (55.2 kg)SpO2 97% BMI 22.68 kg/m2 Physical Examination: General appearance - alert, well appearing, and in no distress Mental status - alert, oriented to person, place, and time Eyes - pupils equal and reactive, extraocular eye movements intact, disc sharp no hem or exudate Neck - supple, no significant adenopathy Lymphatics - no palpable lymphadenopathy, no hepatosplenomegaly Chest - clear to auscultation, no wheezes, rales or rhonchi, symmetric air entry Heart - normal rate, regular rhythm, normal S1, S2, no murmurs, rubs, clicks or gallops Abdomen - soft, nontender, nondistended, no masses or organomegaly Extremities - peripheral pulses normal, no pedal edema, no clubbing or cyanosis Plan rtc 3 months send bs mychart Check a1c then May try for Glucose monitor vs pump per insurace documented in this encounter Plan of Treatment Not on file documented as of this encounter Visit Diagnoses Diagnosis Type 1 diabetes mellitus with ketoacidosis without coma (HCC)- Primary documented in this encounter Care Teams Grinder Set Up Operator Thread Tool Relationship Specialty Start Date End Date Jolanta Freeman MD PCP - General Pediatrics 05/24/13 documented as of this encounter
--- OUTSIDE RECORDS SUMMARY | 2024-05-10 18:52 | XMS_ITS | Encounter Summary ---
Author Organization [facility] Address [address] [place] [address] Care Team Providers Care Serologist Name Role Phone Jolanta Freeman MD Primary Care Provider + [phone] Reason for Visit * Reason Onset Date Comments MEDICATION REFILL 03/18/2018 Encounter Details Date Type Department Care Team (Late st Contact Info) Description 03/18/2018 Refill [facility] Endocrinology, Diabetes and Metabolism [address] [place] [address] Pawan Ram MD [address] [place] [address] MEDICATION REFILL Social History Tobacco Use Types Packs/Day Years Used Date Smoking Tobacco: Never Smokeless Tobacco: Never Alcohol Use Standard Drinks/Week Comments Yes 0 (1 standard drink = 0.6 oz pur e alcohol) occasional Sex and Gender Information Value Date Recorded Sex Assigned at Not on file Gender Identity Not on file Sexual Orientation Not on file documented as of this encounter Functional Status Functional Status Response [...] No 12/26/2017 documented as of this encounter Plan of Treatment Not on file documented as of this encounter Visit Diagnoses Not on filedocumented in this encounter Care Teams Serologist Relationship Specialty Start Date End Date Jolanta Freeman MD PCP - General Pediatrics 05/24/13 documented as of this encounter
--- OUTSIDE RECORDS SUMMARY | 2024-05-10 18:52 | XMS_ITS | Patient Health Summary ---
Author Organization [facility] Address [address] [place] [address] Care Team Providers Care Angle Bender Name Role Phone Jolanta Freeman MD Primary Care Provider [phone] [facility] [place],non-owned Affiliates and Associated Physician Practices is amultiple site organization consisting of ambulatory clinics and hospital sitesin [place], [place], [place] and [place]. This disclosure is being madepursuant to the Care Everywhere program and may not contain all information available regarding this patient. Last updated 18.[facility] Allergies No known active allergies Medications * Be aware that medications may not be up to date on this document. Alwaysverify current medications with the patient. * sertraline (ZOLOFT) 50 MG tablet(Started 12/31/2017) Take 1 tablet by mouth once daily 2 refills remaining * omeprazole (PRILOSEC) 40 MG capsule(Started 12/30/2017) Take 1 capsule by mouth once daily 2 refills remaining * insulin lispro (HUMALOG) 100 UNIT/ML vial(Started 02/07/2018) Inject 6 Units subcutaneously 3 times daily before meals Pt specific sliding scale based off diet 11 refills remaining * insulin syringe-needle (BD ULTRAFINE II) 31G X 5/16 0.3 ML syringe(Started 02/07/2018) 1 Each by Injection route 3 times daily 11 refills remaining * blood glucose (TRUE METRIX BLOOD GLUCOSE TEST) test strip(Started 02/07/2018) Use 1 strip 3 times daily 11 refills remaining * lancets(Started 02/07/2018) Use 1 Each 3 times daily 11 refills remaining * insulin pen needle (NOVOFINE 31) 31G X 5 MM needle(Started 03/02/2018) 1 Each once daily 11 refills remaining * BASAGLAR KWIKPEN (BASAGLAR) pen(Started 05/09/2018) Inject 10 Units subcutaneously at bedtime 11 refills remaining Active Problems Problem Noted Date Diagnosed Date Abnormal EKG 10/12/2018 Diabetic ketoacidosis withou t coma associated with type 1 diabetes mellitus 10/07/2018 Type 1 diabetes mellitus aff ecting in first trimester, antepartum 10/07/2018 Type 1 diabetes mellitus with ketoacidosis witho ut coma 11/28/2017 Resolved Problems Problem Noted Date Diagnosed Date Resolved Date Hypokalemia 12/27/2017 02/07/2018 Gastroparesis due to DM 12/27/201712/2017 High anion gap metabolic acidosis 12/09/2017 02/07/2018 Social History Tobacco Use Types Packs/Day Years [...] Sign Reading Time Taken Comments Blood Pressure 112/66 10/09/2018 11:53 AM CDT Pulse 118 10/09/2018 11:11 AM CDT back to bed Temperature 36.9 ??C (98.4 ??F) 10/09/2018 7:30 AM CD T Respiratory Rate 18 10/09/2018 11:5 3 AM CDT Oxygen Saturation 100% 10/09/2018 11: 57 AM CDT Inhaled Oxygen Concentration - - Weight 61 kg (134 lb 6.4 oz) 10/09/2018 12:34 AM CDT Height 156 cm (5' 1.42 ) 02/07/2018 2:10 PM CDT Body Mass Index 25.05 02/07/2018 2:10 PM CDT Procedures * IMAGING/RADIOLOGY/XRAY RESULTS ORDER(Performed 10/10/2018) * CARDIAC RHYTHM STRIP ORDER(Performed 10/10/2018) * GLUCOSE - POINT OF CARE(Performed 10/09/2018) * GLUCOSE - POINT OF CARE(Performed 10/09/2018) * GLUCOSE - POINT OF CARE(Performed 10/09/2018) * GLUCOSE - POINT OF CARE(Performed 10/09/2018) * KETONES QUALITATIVE URINE AUTO(Performed 10/09/2018) Performed for 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, antepartum (HCC) * GLUCOSE - POINT OF CARE(Performed 10/09/2018) * GLUCOSE - POINT OF CARE(Performed 10/09/2018) * GLUCOSE - POINT OF CARE(Performed 10/09/2018) * GLUCOSE - POINT OF CARE(Performed 10/09/2018) * GLUCOSE - POINT OF CARE(Performed 10/09/2018) * GLUCOSE - POINT OF CARE(Performed 10/09/2018) * GLUCOSE - POINT OF CARE(Performed 10/09/2018) * PHOSPHORUS BLOOD(Performed 10/09/2018) * MAGNESIUM BLOOD(Performed 10/09/2018) * CBC W AUTO DIFFERENTIAL(Performed 10/09/2018) * COMPREHENSIVE METABOLIC PANEL(Performed 10/09/2018) * GLUCOSE - POINT OF CARE(Performed 10/09/2018) * GLUCOSE - POINT OF CARE(Performed 10/09/2018) * GLUCOSE - POINT OF CARE(Performed 10/09/2018) * GLUCOSE - POINT OF CARE(Performed 10/09/2018) * GLUCOSE - POINT OF CARE(Performed 10/09/2018) * GLUCOSE - POINT OF CARE(Performed 10/08/2018) * GLUCOSE - POINT OF CARE(Performed 10/08/2018) * GLUCOSE - POINT OF CARE(Performed 10/08/2018) * KETONES QUALITATIVE URINE AUTO(Performed 10/08/2018) * GLUCOSE - POINT OF CARE(Performed 10/08/2018) * GLUCOSE - POINT OF CARE(Performed 10/08/2018) * EKG 12-LEAD(Performed 10/08/2018) Performed for Diabetic ketoacidosis without coma associated with type 1 diabetes mellitus (HCC) * GLUCOSE - POINT OF CARE(Performed 10/08/2018) * GLUCOSE - POINT OF CARE(Performed 10/08/2018) * HYDROXYBUTYRATE BETA(Performed 10/08/2018) * COMPREHENSIVE METABOLIC PANEL(Performed 10/08/2018) * GLUCOSE - POINT OF CARE(Performed 10/08/2018) * GLUCOSE - POINT OF CARE(Performed 10/08/2018) * GLUCOSE - POINT OF CARE(Performed 10/08/2018) * GLUCOSE - POINT OF CARE(Performed 10/08/2018) * HYDROXYBUTYRATE BETA(Performed 10/08/2018) * BLOOD GASES ARTERIAL(Performed 10/08/2018) * HCG BETA BLOOD QUANTITATIVE(Performed 10/08/2018) * COMPREHENSIVE METABOLIC PANEL(Performed 10/08/2018) * GLUCOSE - POINT OF CARE(Performed 10/08/2018) * PROTEIN URINE QUALITATIVE AUTO(Performed 10/08/2018) * KETONES QUALITATIVE URINE AUTO(Performed 10/08/2018) * GLUCOSE URINE QUALITATIVE AUTO(Performed 10/08/2018) * GLUCOSE - POINT OF CARE(Performed 10/08/2018) * CBC W AUTO DIFFERENTIAL(Performed 10/08/2018) * BLOOD TYPE VERIFICATION(Performed 10/08/2018) * GLUCOSE - POINT OF CARE(Performed 10/08/2018) * GLUCOSE - POINT OF CARE(Performed 10/08/2018) * TYPE + SCREEN PANEL(Performed 10/08/2018) Performed for Type 1 diabetes mellitus with ketoacidosis without coma (HCC), 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, antepartum (HCC) * HEMOGLOBIN A1C(Performed 10/08/2018) Performed for Type 1 diabetes mellitus with ketoacidosis without coma (HCC), 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, antepartum (HCC) * GLUCOSE - POINT OF CARE(Performed 10/07/2018) * URINALYSIS REFLEX MICROSCOPIC REFLEX CULTURE(Performed 10/07/2018) Performed for Type 1 diabetes mellitus with ketoacidosis without coma (HCC), 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, antepartum (HCC) * URINE DRUG SCREEN IMMUNOASSAY(Performed 10/07/2018) Performed for Type 1 diabetes mellitus with ketoacidosis without coma (HCC), 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, antepartum (HCC) * HIV-1 HIV-2 ANTIBODY + HIV P24 AG PANEL(Performed 10/07/2018) * RUBELLA ANTIBODY IGG(Performed 10/07/2018) Performed for Type 1 diabetes mellitus with ketoacidosis without coma (HCC), 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, antepartum (HCC) * SYPHILIS ANTIBODY CASCADING REFLEX(Performed 10/07/2018) Performed for Type 1 diabetes mellitus with ketoacidosis without coma (HCC), 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, antepartum (HCC) * HEPATITIS B SURFACE ANTIGEN W RFLX CONFIRMATION(Performed 10/07/2018) Performed for Type 1 diabetes mellitus with ketoacidosis without coma (HCC), 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, antepartum (HCC) * TSH REFLEX FREE T4(Performed 10/07/2018) Performed for Type 1 diabetes mellitus with ketoacidosis without coma (HCC), 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, antepartum ([facility]) * COMPREHENSIVE METABOLIC PANEL(Performed 10/07/2018) Performed for Type 1 diabetes mellitus with ketoacidosis without coma (HCC), 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, antepartum ([facility]) * OBSTETRIC PANEL (BEAKER)(Performed 10/07/2018) Performed for Type 1 diabetes mellitus with ketoacidosis without coma (HCC), 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, antepartum ([facility]) * GLUCOSE - POINT OF CARE(Performed 10/07/2018) * CARDIAC PROCEDURE ORDER(Performed 03/16/2018) * CARDIAC PROCEDURE ORDER(Performed 02/26/2018) * CARDIAC EKG ORDER(Performed 01/03/2018) * GLUCOSE - POINT OF CARE(Performed 12/30/2017) * DIFFERENTIAL MANUAL(Performed 12/30/2017) * CBC W AUTO DIFFERENTIAL(Performed 12/30/2017) * BASIC METABOLIC PANEL (CALCIUM TOTAL)(Performed 12/30/2017) * GLUCOSE - POINT OF CARE(Performed 12/30/2017) * GLUCOSE - POINT OF CARE(Performed 12/29/2017) * GLUCOSE - POINT OF CARE(Performed 12/29/2017) * GLUCOSE - POINT OF CARE(Performed 12/29/2017) * BASIC METABOLIC PANEL (CALCIUM TOTAL)(Performed 12/29/2017) * GLUCOSE - POINT OF CARE(Performed 12/29/2017) * CBC W AUTO DIFFERENTIAL(Performed 12/29/2017) * BASIC METABOLIC PANEL (CALCIUM TOTAL)(Performed 12/29/2017) * PHOSPHORUS BLOOD(Performed 12/29/2017) * MAGNESIUM BLOOD(Performed 12/29/2017) * GLUCOSE - POINT OF CARE(Performed 12/29/2017) * GLUCOSE - POINT OF CARE(Performed 12/29/2017) * GLUCOSE - POINT OF CARE(Performed 12/28/2017) * GLUCOSE - POINT OF CARE(Performed 12/28/2017) * GLUCOSE - POINT OF CARE(Performed 12/28/2017) * GLUCOSE - POINT OF CARE(Performed 12/28/2017) * GLUCOSE - POINT OF CARE(Performed 12/28/2017) * GLUCOSE - POINT OF CARE(Performed 12/28/2017) * GLUCOSE - POINT OF CARE(Performed 12/28/2017) * CBC W AUTO DIFFERENTIAL(Performed 12/28/2017) * BASIC METABOLIC PANEL (CALCIUM TOTAL)(Performed 12/28/2017) * CELIAC DISEASE PROFILE W RFLX(Performed 12/28/2017) * TSH(Performed 12/28/2017) * PHOSPHORUS BLOOD(Performed 12/28/2017) * MAGNESIUM BLOOD(Performed 12/28/2017) * GLUCOSE - POINT OF CARE(Performed 12/28/2017) * GLUCOSE - POINT OF CARE(Performed 12/27/2017) * GLUCOSE - POINT OF CARE(Performed 12/27/2017) * GLUCOSE - POINT OF CARE(Performed 12/27/2017) * GLUCOSE - POINT OF CARE(Performed 12/27/2017) * BASIC METABOLIC PANEL (CALCIUM TOTAL)(Performed 12/27/2017) * PHOSPHORUS BLOOD(Performed 12/27/2017) * MAGNESIUM BLOOD(Performed 12/27/2017) * GLUCOSE - POINT OF CARE(Performed 12/27/2017) * GLUCOSE - POINT OF CARE(Performed 12/27/2017) * GLUCOSE - POINT OF CARE(Performed 12/27/2017) * GLUCOSE - POINT OF CARE(Performed 12/27/2017) * GLUCOSE - POINT OF CARE(Performed 12/27/2017) * BASIC METABOLIC PANEL (CALCIUM TOTAL)(Performed 12/27/2017) * GLUCOSE - POINT OF CARE(Performed 12/27/2017) * PT EVAL AND TREAT(Performed 12/27/2017) * GLUCOSE - POINT OF CARE(Performed 12/27/2017) * GLUCOSE - POINT OF CARE(Performed 12/27/2017) * GLUCOSE - POINT OF CARE(Performed 12/27/2017) * CBC W AUTO DIFFERENTIAL(Performed 12/27/2017) * PHOSPHORUS BLOOD(Performed 12/27/2017) * MAGNESIUM BLOOD(Performed 12/27/2017) * BASIC METABOLIC PANEL (CALCIUM TOTAL)(Performed 12/27/2017) * GLUCOSE - POINT OF CARE(Performed 12/27/2017) * GLUCOSE - POINT OF CARE(Performed 12/27/2017) * GLUCOSE - POINT OF CARE(Performed 12/26/2017) * GLUCOSE - POINT OF CARE(Performed 12/26/2017) * BASIC METABOLIC PANEL (CALCIUM TOTAL)(Performed 12/26/2017) * GLUCOSE - POINT OF CARE(Performed 12/26/2017) * GLUCOSE - POINT OF CARE(Performed 12/26/2017) * PHOSPHORUS BLOOD(Performed 12/26/2017) * MAGNESIUM BLOOD(Performed 12/26/2017) * BASIC METABOLIC PANEL (CALCIUM TOTAL)(Performed 12/26/2017) * GLUCOSE - POINT OF CARE(Performed 12/26/2017) * GLUCOSE - POINT OF CARE(Performed 12/26/2017) * GLUCOSE - POINT OF CARE(Performed 12/26/2017) * GLUCOSE - POINT OF CARE(Performed 12/26/2017) * BASIC METABOLIC PANEL (CALCIUM TOTAL)(Performed 12/26/2017) * GLUCOSE - POINT OF CARE(Performed 12/26/2017) * GLUCOSE - POINT OF CARE(Performed 12/26/2017) * GLUCOSE - POINT OF CARE(Performed 12/26/2017) * GLUCOSE - POINT OF CARE(Performed 12/26/2017) * GLUCOSE - POINT OF CARE(Performed 12/26/2017) * PHOSPHORUS BLOOD(Performed 12/26/2017) * MAGNESIUM BLOOD(Performed 12/26/2017) * BASIC METABOLIC PANEL (CALCIUM TOTAL)(Performed 12/26/2017) * GLUCOSE - POINT OF CARE(Performed 12/26/2017) * GLUCOSE - POINT OF CARE(Performed 12/26/2017) * GLUCOSE - POINT OF CARE(Performed 12/26/2017) * LACTIC ACID BLOOD(Performed 12/26/2017) * PT-INR SLH(Performed 12/26/2017) * BASIC METABOLIC PANEL (CALCIUM TOTAL)(Performed 12/26/2017) * CBC W AUTO DIFFERENTIAL(Performed 12/26/2017) * EKG 12-LEAD(Performed 12/26/2017) Performed for Type 1 diabetes mellitus with ketoacidosis without coma (HCC) * GLUCOSE - POINT OF CARE(Performed 12/26/2017) * GLUCOSE - POINT OF CARE(Performed 12/26/2017) * GLUCOSE - POINT OF CARE(Performed 12/26/2017) * PHOSPHORUS BLOOD(Performed 12/26/2017) * MAGNESIUM BLOOD(Performed 12/26/2017) * BASIC METABOLIC PANEL (CALCIUM TOTAL)(Performed 12/26/2017) * BLOOD GASES JACLYN(Performed 12/26/2017) * XR CHEST 2VW(Performed 12/26/2017) Performed for Type 1 diabetes mellitus with ketoacidosis without coma (HCC), Chest pain, unspecified type * GLUCOSE - POINT OF CARE(Performed 12/26/2017) * GLUCOSE - POINT OF CARE(Performed 12/25/2017) * HCG URINE QUALITATIVE - POINT OF CARE(Performed 12/25/2017) Performed for Type 1 diabetes mellitus with ketoacidosis without coma (HCC) * URINALYSIS NO MICROSCOPIC NO CULTURE(Performed 12/25/2017) Performed for Type 1 diabetes mellitus with ketoacidosis without coma (HCC) * HYDROXYBUTYRATE BETA(Performed 12/25/2017) Performed for Type 1 diabetes mellitus with ketoacidosis without coma (HCC) * LIPASE BLOOD(Performed 12/25/2017) Performed for Type 1 diabetes mellitus with ketoacidosis without coma (HCC) * COMPREHENSIVE METABOLIC PANEL(Performed 12/25/2017) Performed for Type 1 diabetes mellitus with ketoacidosis without coma (HCC) * CBC W AUTO DIFFERENTIAL(Performed 12/25/2017) Performed for Type 1 diabetes mellitus with ketoacidosis without coma (HCC) * GLUCOSE - POINT OF CARE(Performed 12/25/2017) * CARDIAC EKG ORDER(Performed 12/14/2017) * CARDIAC RHYTHM STRIP ORDER(Performed 12/14/2017) * GLUCOSE - POINT OF CARE(Performed 12/10/2017) * RENAL FUNCTION PANEL(Performed 12/10/2017) * GLUCOSE - POINT OF CARE(Performed 12/10/2017) * MAGNESIUM BLOOD(Performed 12/10/2017) * CBC W AUTO DIFFERENTIAL(Performed 12/10/2017) * GLUCOSE - POINT OF CARE(Performed 12/10/2017) * GLUCOSE - POINT OF CARE(Performed 12/10/2017) * GLUCOSE - POINT OF CARE(Performed 12/09/2017) * GLUCOSE - POINT OF CARE(Performed 12/09/2017) * RENAL FUNCTION PANEL(Performed 12/09/2017) * PROCALCITONIN LEVEL(Performed 12/09/2017) * GLUCOSE - POINT OF CARE(Performed 12/09/2017) * GLUCOSE - POINT OF CARE(Performed 12/09/2017) * GLUCOSE - POINT OF CARE(Performed 12/09/2017) * BLOOD GASES JACLYN(Performed 12/09/2017) * GLUCOSE - POINT OF CARE(Performed 12/09/2017) * URINE DRUG SCREEN IMMUNOASSAY(Performed 12/09/2017) * TROPONIN I(Performed 12/09/2017) * HEMOGLOBIN A1C(Performed 12/09/2017) * CBC W AUTO DIFFERENTIAL(Performed 12/09/2017) * LACTIC ACID BLOOD(Performed 12/09/2017) * PHOSPHORUS BLOOD(Performed 12/09/2017) * MAGNESIUM BLOOD(Performed 12/09/2017) * BASIC METABOLIC PANEL (CALCIUM TOTAL)(Performed 12/09/2017) * CULTURE VRE(Performed 12/09/2017) * CULTURE MRSA(Performed 12/09/2017) * CULTURE MRSA(Performed 12/09/2017) * CARDIAC EKG ORDER(Performed 12/06/2017) * GLUCOSE - POINT OF CARE(Performed 11/30/2017) * GLUCOSE - POINT OF CARE(Performed 11/30/2017) * ALBUMIN BLOOD(Performed 11/30/2017) * PHOSPHORUS BLOOD(Performed 11/30/2017) * BASIC METABOLIC PANEL (CALCIUM TOTAL)(Performed 11/30/2017) * CBC W/O DIFFERENTIAL(Performed 11/30/2017) * GLUCOSE - POINT OF CARE(Performed 11/30/2017) * GLUCOSE - POINT OF CARE(Performed 11/29/2017) * GLUCOSE - POINT OF CARE(Performed 11/29/2017) * GLUCOSE - POINT OF CARE(Performed 11/29/2017) * BASIC METABOLIC PANEL (CALCIUM TOTAL)(Performed 11/29/2017) * GLUCOSE - POINT OF CARE(Performed 11/29/2017) * GLUCOSE - POINT OF CARE(Performed 11/29/2017) * CORTISOL BLOOD AM(Performed 11/29/2017) * CORTISOL BLOOD AM(Performed 11/29/2017) * CORTISOL BLOOD AM(Performed 11/29/2017) * ACTH(Performed 11/29/2017) * PHOSPHORUS BLOOD(Performed 11/29/2017) * BASIC METABOLIC PANEL (CALCIUM TOTAL)(Performed 11/29/2017) * GLUCOSE - POINT OF CARE(Performed 11/29/2017) * GLUCOSE - POINT OF CARE(Performed 11/29/2017) * GLUCOSE - POINT OF CARE(Performed 11/29/2017) * PHOSPHORUS BLOOD(Performed 11/29/2017) * BASIC METABOLIC PANEL (CALCIUM TOTAL)(Performed 11/29/2017) * GLUCOSE - POINT OF CARE(Performed 11/29/2017) * GLUCOSE - POINT OF CARE(Performed 11/29/2017) * GLUCOSE - POINT OF CARE(Performed 11/29/2017) * CORTISOL BLOOD AM(Performed 11/29/2017) * MAGNESIUM BLOOD(Performed 11/29/2017) * CBC W/O DIFFERENTIAL(Performed 11/29/2017) * PHOSPHORUS BLOOD(Performed 11/29/2017) * BASIC METABOLIC PANEL (CALCIUM TOTAL)(Performed 11/29/2017) * GLUCOSE - POINT OF CARE(Performed 11/29/2017) * GLUCOSE - POINT OF CARE(Performed 11/28/2017) * CULTURE BLOOD(Performed 11/28/2017) * ALCOHOL ETHYL BLOOD(Performed 11/28/2017) * HYDROXYBUTYRATE BETA(Performed 11/28/2017) * DIFFERENTIAL MANUAL(Performed 11/28/2017) * TSH(Performed 11/28/2017) * HEMOGLOBIN A1C(Performed 11/28/2017) * PTT SLH(Performed 11/28/2017) * PT-INR SLH(Performed 11/28/2017) * PHOSPHORUS BLOOD(Performed 11/28/2017) * MAGNESIUM BLOOD(Performed 11/28/2017) * LIPASE BLOOD(Performed 11/28/2017) * LACTIC ACID BLOOD(Performed 11/28/2017) * CBC W AUTO DIFFERENTIAL(Performed 11/28/2017) * COMPREHENSIVE METABOLIC PANEL(Performed 11/28/2017) * CULTURE BLOOD(Performed 11/28/2017) * XR CHEST 1VW PORTABLE(Performed 11/28/2017) Performed for Type 1 diabetes mellitus with ketoacidosis without coma (HCC) * URINE DRUG SCREEN IMMUNOASSAY(Performed 11/28/2017) * URINALYSIS REFLEX TO MICROSCOPIC NO CULTURE(Performed 11/28/2017) * CULTURE URINE(Performed 11/28/2017) * EKG 12-LEAD(Performed 11/28/2017) Performed for Type 1 diabetes mellitus with ketoacidosis without coma (HCC) * GLUCOSE - POINT OF CARE(Performed 11/28/2017) * EKG 15-LEAD(Performed 05/29/2013) Performed for Chest pain * ECHO CONSULT - PEDIATRIC(Performed 05/29/2013) Performed for Other Chest Pain Results * IMAGING/RADIOLOGY/XRAY RESULTS ORDER (10/10/2018 8:05 PM CDT) Anatomical Region Laterality Modality Other Narrative 10/10/2018 8:05 PM CDT Ordered by an unspecified provider. Scanned Document IMAGING * CARDIAC RHYTHM STRIP ORDER (10/10/2018 11:22 AM CDT) Only the most recent of2 resultswithin the time period is included. Narrative 10/10/2018 11:22 AM CDT Ordered by an unspecified provider. Scanned Document CARDIAC SERVICES ORD ERABLES * (ABNORMAL) GLUCOSE - POINT OF CARE (10/09/2018 3:43 PM CDT) Only the most recent of113 resultswithin the time period is included. [facility] Glucose WB/POC 171(H) 70 - 106 mg/dL 10/09/2018 3:55 PM CDT [facility] Specimen Type Arterial/C apillary 10/09/2018 3:55 PM CDT [facility] Blood BLOOD SPECIMEN / Unknown 10/09/2018 3:43 PM CDT 10/09/2018 3:55 PM CDT Franchesca Orellana MD LAB - POINT OF CARE ORDERABLES Performing Organization Address City/[facility] Co de Phone Number [facility] [address] [place] [phone] * (ABNORMAL) KETONES QUALITATIVE URINE AUTO (10/09/2018 11:50 AM CDT) Only the most recent of3 resultswithin the time period is included. [facility] Ketone UA 2+(A) Negative 10/09/2018 12:23 PM CDT [facility] Urine URINE / Unknown Collection / Unknown 10/09/2018 11:50 AM CDT 10/09/2018 12:17 PM CDT Narrative [facility] - 10/09/2018 12:23 PM CDT Lauren Mckoy MD LAB - URINALYSIS ORD ERABLES Performing Organization Address City/[facility]/ZIP Co de Phone Number [facility] [address] [place] [address] * (ABNORMAL) CBC W AUTO DIFFERENTIAL (10/09/2018 5:22 AM CDT) Only the most recent of11 resultswithin the time period is included. [facility] WBC 8.6 4.4 - 10.7 x10E9/L 10/09/2018 5:45 AM CDT [facility] WBC Corrected x10E9/L 10/09/2018 5:45 AM CDT [facility] RBC 5.15 3.80 - 5.20 x10E12/L 10/09/2018 5:[facility] Hemoglobin 14.2 12.0 - 15.6 gm/dL 10/09/2018 5:45 AM [facility] Hematocrit 41.5 35.9 - 45.5 % 10/09/2018 5:45 AM [facility] MCV 80.6(L) 80.7 - 98.3 fl 10/09/2018 5:45 [facility] MCH 27.6 26.7 - 34.0 pg 10/09/2018 5:45 [facility] MCHC 34.2 30.8 - 35.9 gm/dL 10/09/2018 5:45 AM [facility] Platelet Count 420(H) 153 - 416 x10E9/L 10/09/2018 5:45 AM [facility] RDW-CV 14.2 12.1 - 14.9 % 10/09/2018 5:45 AM [facility] MPV 8.7(L) 9.4 - 12.9 fl 10/09/2018 5:45 AM [facility] Neutrophils % 51.3 44.0 - 73.0 % 10/09/2018 5:45 AM [facility] Lymphocytes % 32.5 20.0 - 43.0 % 10/09/2018 5:45 AM [facility] Monocytes % 13.8(H) 5.0 - 13.0 % 10/09/2018 5:45 AM [facility] Eosinophils % 0.1 0.0 - 6.0 % 10/09/2018 5:45 AM [facility] Basophils % 0.7 0.0 - 2.0 % 10/09/2018 5:45 AM [facility] Immature Granulocytes 1.6(H) 0 - 1 % 10/09/2018 5:45 AM [facility] Neutrophil Absolute 4.43 2.01 - 7.14 x10E9/L 10/09/2018 5:45 AM [facility] Lymphocytes Absolute 2.81 1.07 - 3.94 x10E9/L 10/09/2018 5:45 AM [facility] Monocytes Absolute 1.19(H) 0.26 - 1.07 x10E9/L 10/09/2018 5:45 AM CDT [facility] Eosinophils Absolute 0.01 0 - 0.47 x10E9/L 10/09/2018 5:45 AM CDT [facility] Basophils Absolute 0.06 0 - 0.08 x10E9/L 10/09/2018 5:45 AM CDT [facility] Immature Granulocytes Absolute 0.14(H) 0.00 - 0.06 x10E9/L 10/09/2018 5:45 AM CDT [facility] nRBC Auto 0 /100 WBC 10/09/2018 5:45 AM T [facility] Blood BLOOD SPECIMEN / Unknown Lab Venipuncture / Unknown 10/09/2018 5:22 AM CDT 10/09/2018 5:28 AM CDT Jay Ceja MD LAB - HEMATOLOGY ORD ERABLES [facility] [address], [place] [id number] * (ABNORMAL) COMPREHENSIVE METABOLIC PANEL (10/09/2018 5:22 AM CDT) Only the most recent of6 resultswithin the time period is included. Glucose 124(H) 74 - 106 mg/dL 10/09/2018 6:05 AM [facility] Sodium 134(L) 136 - 145 mmol/L 10/09/2018 6:05 AM [facility] Potassium 4.1 3.5 - 5.1 mmol/L 10/09/2018 6:05 AM [facility] Chloride 99 98 - 107 mmol/L 10/09/2018 6:05 AM [facility] CO2 26 23 - 31 mmol/L 10/09/2018 6:05 AM [facility] Calcium 8.9 8.4 - 10.2 mg/dL 10/09/2018 6:05 AM [facility] Anion Gap 9 8 - 16 mmol/L 10/09/2018 6:05 AM [facility] BUN 2(L) 7 - 18.7 mg/dL 10/09/2018 6:05 AM [facility] Creatinine 0.44(L) 0.55 - 1.02 mg/dL 10/09/2018 6:05 AM CDT [facility] Alkaline Phosphatase 69 40 - 150 U/L 10/09/2018 6:05 AM CDT [facility] ALT 9(L) 13 - 61 U/L 10/09/2018 6:05 AM CDT [facility] AST 12 5 - 34 U/L 10/09/2018 6:05 AM CDT [facility] Protein Total 6.1(L) 6.4 - 8.3 gm/dL 10/09/2018 6:05 AM CDT [facility] Albumin 3.6 3.5 - 5.2 gm/dL 10/09/2018 6:05 AM CDT [facility] Bilirubin Total 0.7 0.2 - 1.0 mg/dL 10/09/2018 6:05 AM CDT [facility] eGFR by MDRD >60 >60 mL/min/1.7 3m2 10/09/2018 6:05 AM CDT [facility] eGFR by MDRD >60 >60 mL/min/1.7 2 10/09/2018 6:05 AM CDT [facility] Blood BLOOD SPECIMEN / Unknown Lab Venipuncture / Unknown 10/09/2018 5:22 AM CDT 10/09/2018 5:28 AM CDT Narrative [facility] - 10/09/2018 6:05 AM CDT Attention clinician: BUN Reference Range has changed. Suni Barrera MD LAB - CHEMISTRY O RDERABLES [facility] [address] [place] [address] * (ABNORMAL) PHOSPHORUS BLOOD (10/09/2018 5:22 AM CDT) Only the most recent of14 resultswithin the time period is included. Phosphorus 1.8(L) 2.3 - 4.7 mg/dL 10/09/2018 6:04 AM CDT [facility] Blood BLOOD SPECIMEN / Unknown Lab Venipuncture / Unknown 10/09/2018 5:22 AM CDT 10/09/2018 5:28 AM CDT Jay Ceja MD LAB - CHEMISTRY ORDE RABLES Performing Organization Address [facility]/ZIP Co de Phone Number [facility] [address] [place] [address] * (ABNORMAL) MAGNESIUM BLOOD (10/09/2018 5:22 AM CDT) Only the most recent of12 resultswithin the time period is included. Pathologist [facility] Magnesium 1.4(L) 1.6 - 2.6 mg/dL 10/09/2018 6:04 AM CDT [facility] Blood BLOOD SPECIMEN / Unknown Lab Venipuncture / Unknown 10/09/2018 5:22 AM CDT 10/09/2018 5:28 AM CDT Jay Ceja MD LAB - CHEMISTRY HANDY KONG Performing Organization Address [facility] Co de Phone Number [facility] [address] [place] [address] * EKG 12-LEAD (10/08/2018 6:28 PM CDT) Only the most recent of3 resultswithin the time period is included. [facility] Ventricular Rate 80 BPM [facility] Atrial Rate 80 BPM [facility] P-R Interval 122 ms [facility] QRS Duration ms 80 ms [facility] Q-T Interval ms 350 ms [facility] QTC Calculation (Bezet) 403 ms [facility] M[facility] Calculated P Perris 67 degrees [facility] M[facility] Calculated R P[place] 90 degrees [facility] M[facility] Calculated T P[place] 59 degrees [facility] Interpretation EKG SINUS RHYTHM WITH APCS BORDERLINE ECG NO PREVIOUS ECGS AVAILABLE Confirmed by MD Rudy, Felipe ([id number]) on 10/12/2018 7:33:13 AM [facility] 10/08/2018 6:28 PM CDT 10/12/2018 7:33 AM CDT Sandra Dickerson MD ECG ORDERABLES Performing Organization Address [facility] Co de Phone Number [facility] * (ABNORMAL) HYDROXYBUTYRATE BETA (10/08/2018 4:57 PM CDT) Only the most recent of4 resultswithin the time period is included. [facility] Beta-Hydroxybu tyrate 0.6(H) <0.6 mmol/L 10/08/2018 5:27 PM CDT [facility] Blood BLOOD SPECIMEN / Unknown Lab Venipuncture / Unknown 10/08/2018 4:57 PM CDT 10/08/2018 5:01 PM CDT Narrative [facility] - 10/08/2018 5:27 PM CDT Betahydroxybutyrate comment: This test replaces Serum Acetone testing.Results 0.6-1.5 mmol/L could require medical intervention. Results >1.5 mmol/L may be indicative of diabetic ketoacidosis. Use in conjunction with Serum Glucose levels. Lauren Mckoy MD LAB - CHEMISTRY HANDY KONG [facility] Organization Address City/State/ZIP Co de Phone Number [facility] [address] [place] [address] * (ABNORMAL) BLOOD GASES ARTERIAL (10/08/2018 12:23 PM CDT) Pathologist [facility] pH Arterial 7.42 7.35 - 7.45 pH 10/08/2018 12:37 PM CDT [facility]P THERAPY pCO2 Arterial 22(L) 35 - 45 mm hg 10/08/2018 12:37 PM CDT [facility]AP[facility] pO2 Arterial 110(H) 80 - 100 mm hg 10/08/2018 12:37 PM CDT [facility] HCO3 Arterial 14(L) 22 - 26 mmol/L 10/08/2018 12:37 PM CDT [facility]P [facility]AP[facility] BE Arterial -7.9(L) -2.0 - 2.0 mmol/L 10/08/2018 12:37 PM CDT [facility]ERAP[facility] O2 Saturation Arterial 98 90 - 100 % 10/08/2018 12:37 PM CDT [facility] Hemoglobin Arterial 13.9(L) 14.0 - 16.0 gm/dL 10/08/2018 12:37 PM CDT [facility] Carboxyhemoglobin Arterial 0.5 0.0 - 2.5 % 10/08/2018 12:37 PM CDT [facility] Methemoglobin Arterial 0.6 0.0 - 2.0 % 10/08/2018 12:37 PM CDT [facility] Oxyhemoglobin Arterial 97 % 10/08/2018 12:37 PM CDT [facility] Mode Room Air 10/08/2018 12:37 PM CDT [facility] Sample Site R Radial 10/08/2018 12:37 PM CDT [facility] RESP THERAPY Sample Type Arterial 10/08/2018 12:37 PM CDT [facility] RESP THERAPY Legal Process Specialist ID [id number] 10/08/2018 12:37 PM CDT [facility] Blood, arterial ARTERIAL BLOOD SPECIMEN / Unknown 10/08/2018 12:23 PM CDT 10/08/2018 12:23 PM CDT Suni Barrera MD LAB - BLOOD GASES ORDERABLES [facility] [address] [phone] * HCG BETA BLOOD QUANTITATIVE (10/08/2018 11:42 AM CDT) hCG Quantitative 7,151.16 mIU/mL 10/09/19 19 12:52 PM CDT [facility] Blood BLOOD SPECIMEN / Unknown Lab Venipuncture / Unknown 10/08/2018 11:42 AM CDT 10/08/2018 12:09 PM CDT Narrative [facility] - 10/08/2018 12:52 PM CDT ? hCG Reference Range, mIU/mL: ? Males ? 0-2.0 ? Non Females ? 0-6.0 ? Perimenopausal Females ages 41-55* ?0-7.7 ? Postmenopausal Females age >55* ? 0-14 ? Females, Weeks after Last Menstrual Period ?0.2-1 week ? 5-50 ?1 - 2 weeks ?50-500 ?2 - 3 weeks ?100-5000 ?3 - 4 weeks ?500-10,000 ?4 - 5 weeks ?1000-50,000 ?5 - 6 weeks ?10,000-100,000 ?6 - 8 weeks ?15,000-200,000 ?2 - 3 months ? 10,000-100,000 ?Trophoblastic Disease ?>100,000 *In higher than expected hCG in females > age 40, a serum FSH >20 IU/L makes unlikely. Suni Barrera MD LAB - CHEMISTRY O EVELIA Performing Organization Address [facility] de Phone Number [facility] [address] [place] [phone] * PROTEIN URINE QUALITATIVE AUTO (10/08/2018 11:20 AM CDT) Protein UA Negative Negative 10/08/2018 11:45 AM CDT [facility] Urine URINE / Unknown Collection / Unknown 10/08/2018 11:20 AM CDT 10/08/2018 11:32 AM CDT Jay Ceja MD LAB - URINALYSIS ORD RADHABLES Performing Organization Address [facility]/ZIP Co de Phone Number [facility] [address] [place] [address] * (ABNORMAL) GLUCOSE URINE QUALITATIVE AUTO (10/08/2018 11:20 AM CDT) Glucose UA 2+(A) Negative 10/08/2018 11:45 AM CDT [facility] Urine URINE / Unknown Collection / Unknown 10/08/2018 11:20 AM CDT 10/08/2018 11:32 AM CDT Jay Ceja MD LAB - URINALYSIS ORD ERABLES Performing Organization Address City/[facility]/ZIP Co de Phone Number [facility] [address] [place] [address] * BLOOD TYPE VERIFICATION (10/08/2018 6:05 AM CDT) ABO O 10/08/2018 6:50 AM CDT [facility] Rh Type Positive 10/08/2018 6:50 AM CDT [facility] Blood Bank BLOOD SPECIMEN / Unknown Lab Venipuncture / Unknown 10/08/2018 6:05 AM CDT 10/08/2018 6:12 AM CDT Franchesca Orellana MD LAB - BLOOD BA NK ORDERABLES Performing Organization Address City/[facility] Co de Phone Number [facility] [address] [place] [address] * (ABNORMAL) HEMOGLOBIN A1C (10/08/2018 12:52 AM CDT) Only the most recent of3 resultswithin the time period is included. Hemoglobin A1c 10.3(H) 4.0 - 6.1 % 10/08/2018 1:18 AM CDT [facility] Estimated Average Glucose 249 mg/dL 10/08/2018 1:18 AM CDT [facility] Blood BLOOD SPECIMEN / Unknown Lab Venipuncture / Unknown 10/08/2018 12:52 AM CDT 10/08/2018 12:57 AM CDT Narrative [facility] - 10/08/2018 1:18 AM CDT Attention clinician: ??Reference Range has changed. Cody Palmer MD LAB - CHEMISTRY HANDY KONG Performing Organization Address [facility] Co de Phone Number [facility] [address] [place] [address] * TYPE + SCREEN PANEL (10/08/2018 12:52 AM CDT) ABO O 10/08/2018 1:33 AM CDT [facility] Rh Type Positive 10/08/2018 1:33 AM CDT [facility] Comment:History checked. Col lect retype. Antibody Screen Negative 10/08/2018 1:33 AM CDT [facility] Blood Bank BLOOD SPECIMEN / Unknown Lab Venipuncture / Unknown 10/08/2018 12:52 AM CDT 10/08/2018 12:58 AM CDT Cody Palmer MD LAB - BLOOD BANK ALONSO FORBES Performing Organization Address [facility] Co de Phone Number [facility] [address] [place] [address] * (ABNORMAL) URINALYSIS REFLEX MICROSCOPIC REFLEX CULTURE (10/07/2018 10:39 PM CDT) Color UA Yellow Straw, Yellow 10/07/2018 11:09 PM CDT [facility] Clarity UA Clear Clear 10/07/2018 11:09 PM CDT [facility] Glucose UA 3+(A) Negative 10/07/2018 11:09 PM CDT [facility] Bilirubin UA Negative Negative 10/07/2018 11:09 PM CDT [facility] Ketone UA 2+(A) Negative 10/07/2018 11:09 PM CDT [facility] Specific [place] UA 1.022 1.005 - 1.030 10/07/2018 11:09 PM CDT [facility] Blood UA Negative Negative 10/07/2018 11:09 PM CDT [facility] pH UA 6.0 5.0 - 8.0 pH 10/07/2018 11:09 PM CDT [facility] Protein UA Negative Negative 10/07/2018 11:09 PM CDT [facility] Urobilinogen UA Negative Negative mg/dL 10/07/2018 11:09 PM CDT [facility] Nitrite UA Negative Negative 10/07/2018 11:09 PM CDT [facility] Leukocyte UA Negative Negative 10/07/2018 11:09 PM CDT [facility] Urine Microscopy Urine microscopy not indicated 10/07/2018 11:09 PM CDT [facility] Reflex Status Culture not indicated 10/07/2018 11:09 PM CDT [facility] Urine URINE SPECIMEN OBTAINED BY CLEAN CATCH PROCEDURE / Unknown Collection / Unknown 10/07/2018 10:39 PM CDT 10/07/2018 10:49 PM CDT Narrative [facility] - 10/07/2018 11:09 PM CDT Cody Palmer MD LAB - URINALYSIS ORD ERABLES [facility] [address] [place] [address] * DRUG SCREEN TOX URINE PANEL (10/07/2018 10:38 PM CDT) Only the most recent of3 resultswithin the time period is included. [facility] Amphetamines Screen Urine Not Detected Not Detected 10/07/2018 11:44 PM CDT [facility] Barbiturates Screen Urine Not Detected Not Detected 10/07/2018 11:44 PM CDT [facility] Benzodiazepines Screen Urine Not Detected Not Detected 10/07/2018 11:44 PM CDT [facility] Cannabinoids Screen Urine Not Detected Not Detected 10/07/2018 11:44 PM CDT [facility] Cocaine Screen Urine Not Detected Not Detected 10/07/2018 11:44 PM CDT [facility] Methadone Screen Urine Not Detected Not Detected 10/07/2018 11:44 PM CDT [facility] Opiate Screen Urine Not Detected Not Detected 10/07/2018 11:44 PM CDT [facility] Phencyclidine Screen Urine Not Detected Not Detected 10/07/2018 11:44 PM CDT [facility] Urine URINE / Unknown Collection / Unknown 10/07/2018 10:38 PM CDT 10/07/2018 10:49 PM CDT Narrative [facility] - 10/07/2018 11:44 PM CDT This drug screen is designed for MEDICAL purposes only. It is not to be used for legal purposes, including but not limited to worker's comp, police investigations, occupational issues, child custody, etc. ??Any positive result is only presumptive and must be confirmed with a separate confirmatory test ordered by the physician. Drug Screening Test Cutoff Values: AMPHETAMINES ?1000 ng/mL BARBITURATES ? 200 ng/mL BENZODIAZEPINES ??200 ng/mL CANNABINOIDS(THC) 50 ng/mL COCAINE ?300 ng/mL METHADONE ?300 ng/mL OPIATES ?300 ng/mL PHENCYCLIDINE(PCP)25 ng/mL Cody Palmer MD LAB - URINE CHEMISTR Y ORDERABLES Performing Organization Address [facility] de Phone Number [facility] [address] [place] [address] * SYPHILIS ANTIBODY CASCADING REFLEX (10/07/2018 8:53 PM CDT) Treponema pallidum Antibody Non Reactive Non Reactive 10/07/2018 9:41 PM CDT [facility] Comment: No Laboratory evidence of syphilis infection. ?? Note: ??Circulating antibodies may be low or undetectable in early infection. ??If recent exposure is suspected, re-draw sample in 2-4 weeks and repeat testing. Blood BLOOD SPECIMEN / Unknown Lab Venipuncture / Unknown 10/07/2018 8:53 PM CDT 10/07/2018 8:59 PM CDT Cody Palmer MD LAB - SEROLOGY ORDER RULA Performing Organization Address [facility] de Phone Number [facility] [address] [place], [place] [phone] * HIV-1 HIV-2 ANTIBODY + HIV P24 AG PANEL (10/07/2018 8:53 PM CDT) HIV1/2 Ab + P24 Ag Non Reactive Non Reactive 10/07/2018 9:41 PM CDT [facility] Blood BLOOD SPECIMEN / Unknown Lab Venipuncture / Unknown 10/07/2018 8:53 PM CDT 10/07/2018 8:59 PM CDT Narrative [facility] - 10/07/2018 9:41 PM CDT No Laboratory evidence of HIV infection. Franchesca Orellana MD LAB - CHEMISTR Y ORDERABLES Performing Organization Address [facility] Co de Phone Number [facility] [address] [place], [place] [phone] * TSH REFLEX FREE T4 (10/07/2018 8:53 PM CDT) TSH 0.4015 0.35 - 4.94 ulU/mL 10/07/2018 9:42 PM CDT [facility] Blood BLOOD SPECIMEN / Unknown Lab Venipuncture / Unknown 10/07/2018 8:53 PM CDT 10/07/2018 8:59 PM CDT Cody Palmer MD LAB - CHEMISTRY HANDY KONG Performing Organization Address [facility] de Phone Number [facility] [address] [place] [phone] * RUBELLA ANTIBODY IGG (10/07/2018 8:53 PM CDT) Rubella Antibody 1.65 Immune >0.99 index 10/10/2018 8:06 AM CDT [facility] ([facility]) Comment: ?Non-immune ? <0.90 ?Equivocal ??0.90 - 0.99 ?Immune ? >0.99 Blood BLOOD SPECIMEN / Unknown Venipuncture / Unknown 10/07/2018 8:53 PM CDT 10/07/2018 8:59 PM CDT Narrative [facility] ([facility]) - 10/10/2018 8:06 AM CDT Performed at: ??01 - [facility] [address] [place], [place] ??[id number] Operating Room Surgical Technologist: Gregorio Ortega PhD, Phone: ??[phone] Cody Palmer MD LAB - SEROLOGY ORDER RULA Performing Organization Address City/[facility]/ZIP Co de Phone Number [facility] ([facility]) [address] [place] [address] * HEPATITIS B SURFACE ANTIGEN W RFLX CONFIRMATION (10/07/2018 8:53 PM CDT) [facility] HBsAg Non Reactive Non Reactive 10/07/2018 9:43 PM CDT [facility] Blood BLOOD SPECIMEN / Unknown Lab Venipuncture / Unknown 10/07/2018 8:53 PM CDT 10/07/2018 9:00 PM CDT Cody Palmer MD LAB - CHEMISTRY ORDE DILAN Performing Organization Address City/[facility]/ZIP Co de Phone Number [facility] [address] [place] [phone] * CARDIAC PROCEDURE ORDER (03/16/2018 8:28 AM NUT ORCHARDIST) Only the most recent of2 resultswithin the time period is included. Narrative 03/16/2018 8:28 AM NUT ORCHARDIST Ordered by an unspecified provider. Scanned Document CARDIAC SERVICES ORD ERABLES * CARDIAC EKG ORDER (01/03/2018 9:30 PM CDT) Only the most recent of3 resultswithin the time period is included. Narrative 01/03/2018 9:30 PM CDT Ordered by an unspecified provider. Scanned Document CARDIAC SERVICES ORD ERABLES * (ABNORMAL) DIFFERENTIAL MANUAL (12/30/2017 5:45 AM CDT) Only the most recent of2 resultswithin the time period is included. Pathologist [facility] WBC (corrected for NRBC) 5.9 10? 3 /uL 12/30/2017 7:29 AM CDT [facility] Total Cell Count 100 12/30/2017 7:29 AM [facility] Neutrophils Absolute Manual 1.36(L) 1.60 - 7.00 10? 3 /uL 12/30/2017 7:29 AM [facility] Comment:(BANDS+SEGS) x WBC = NEUT # (ANC) Lymphocyte Absolute Manual 4.13(H) 0.80 - 2.90 10? 3 /uL 12/30/2017 7:29 AM [facility] Monocytes Absolute Manual 0.41 0.14 - 0.66 10? 3 /uL 12/30/2017 7:29 AM [facility] Neutrophil % Manual 23(L) 30 - 60 % 12/30/2017 7:29 AM [facility] Lymphocyte % Manual 70(H) 20 - 45 % 12/30/2017 7:29 AM [facility] Monocytes % Manual 7 2 - 10 % 12/30/2017 7:29 AM [facility] Platelet Estimate Adequate Adequate 12/30/2017 7:29 AM [facility] Ovalocytes Occasional(A ) None 12/30/2017 7:29 AM [facility] Blood BLOOD SPECIMEN / Unknown Venipuncture / Unknown 12/30/2017 5:45 AM CDT 12/30/2017 5:48 AM CDT Iesha Dominguez Lionel MANAGER OF PHOTOGRAPHY-ROADSIDE MECHANIC LAB - HEMATOLOGY ORDERABLES [facility] [address] [place] [address] * (ABNORMAL) BASIC METABOLIC PANEL (CALCIUM TOTAL) (12/30/2017 5:45 AM CDT) Only the most recent of19 resultswithin the time period is included. BUN 5(L) 7 - 26 mg/dL 12/30/2017 6:05 AM [facility] Creatinine 0.4(L) 0.6 - 1.2 mg/dL 12/30/2017 6:05 AM [facility] Sodium 136 136 - 145 mmol/L 12/30/2017 6:05 AM [facility] Comment:Checked Potassium 3.7 3.5 - 4.5 mmol/L 12/30/2017 6:05 AM [facility] Chloride 102 98 - 107 mmol/L 12/30/2017 6:05 AM [facility] CO2 25 22 - 29 mmol/L 12/30/2017 6:05 AM [facility] Glucose 174(H) 70 - 115 mg/dL 12/30/2017 6:05 AM [facility] Calcium 8.4 8.4 - 10.2 mg/dL 12/30/2017 6:05 AM [facility] Anion Gap 13 8 - 18 12/30/2017 6:05 AM [facility] BUN/Creatinine Ratio 13 7 - 23 12/30/2017 6:05 AM [facility] Osmolality Calculated 283 270 - 300 mOsm/kg 12/30/2017 6:05 AM [facility] eGFR >60 >60 mL/min/1.7 3 m2 12/30/2017 6:05 AM [facility] Blood BLOOD SPECIMEN / Unknown Venipuncture / Unknown 12/30/2017 5:45 AM CDT 12/30/2017 5:48 AM CDT Cl Del Valle DO LAB - CHEMISTRY OR DERABLES Performing Organization Address City/State/[facility] Co de Phone Number [facility] [address] [place] [address] * CELIAC DISEASE PROFILE W RFLX (12/28/2017 6:21 AM CDT) Endomysial Antibody IgA Negative Negative 12/29/2017 4:24 PM CDT [facility] ([facility]) TTG Antibody IgA <2 0 - 3 U/mL 12/30/19 18 4:24 PM CDT [facility] ([facility]) Comment: ?Negative ?0 - ??3 ?Weak Positive ?? 4 - 10 ?Positive ? >10 Tissue Transglutaminase (tTG) has been identified as the endomysial antigen. ??Studies have demonstr- ated that endomysial IgA antibodies have over 99% specificity for gluten sensitive enteropathy. IgA Quantitative 147 87 - 352 mg/dL 12/29/2017 4:24 PM CDT [facility] ([facility]) Blood BLOOD SPECIMEN / Unknown Venipuncture / Unknown 12/28/2017 6:21 AM CDT 12/28/2017 6:27 AM CDT Narrative [facility] ([facility]) - 12/29/2017 4:24 PM CDT Performed at: ??01 - [facility] [address] [place], [place] ??[id number] Operating Room Surgical Technologist: Gregorio Ortega PhD, Phone: ??[phone] Cl Del Valle DO LAB - CHEMISTRY OR DERABLES Performing Organization Address [facility] de Phone Number [facility]) [address] [place] [phone] * TSH (12/28/2017 6:21 AM CDT) Only the most recent of2 resultswithin the time period is included. Pathologist [facility] TSH 1.573 0.350 - 4.940 uIU/mL 12/28/2017 7:07 AM CDT [facility] Blood BLOOD SPECIMEN / Unknown Venipuncture / Unknown 12/28/2017 6:21 AM CDT 12/28/2017 6:26 AM CDT Cl Del Valle DO LAB - CHEMISTRY OR DERABLES Performing Organization Address [facility] de Phone Number [address] [phone] * PT-INR [facility] (12/26/2017 6:11 AM CDT) Only the most recent of2 resultswithin the time period is included. Pathologist [facility] PT 14.3 12.1 - 14.8 Seconds 12/26/2017 6:46 AM T [facility] INR 1.1 See Comment 12/26/2017 6:46 AM [facility] Comment: The suggested therapeutic range for standard coumadin (warfarin) therapy is an INR of 2.0-3.0. For high-risk patients (Mechanical Mitral Valve Prosthesis, etc.), the suggested prophylactic therapeutic range is an INR of 2.5-3.5. Blood BLOOD SPECIMEN / Unknown Venipuncture / Unknown 12/26/2017 6:11 AM CDT 12/26/2017 6:20 AM CDT Connie Loya MD LAB - COAGULATION OR DERABLES Performing Organization Address City/[facility]/ZIP Co de Phone Number [address] [phone] * LACTIC ACID BLOOD (12/26/2017 6:11 AM CDT) Only the most recent of3 resultswithin the time period is included. Pathologist [facility] Lactic Acid-Stat 1.4 0.5 - 2.2 mmol/L 12/26/2017 6:52 AM [facility] Blood BLOOD SPECIMEN / Unknown Venipuncture / Unknown 12/26/2017 6:11 AM CDT 12/26/2017 6:20 AM CDT Connie Loya MD LAB - CHEMISTRY ORDE RABLES Performing Organization Address City/[facility]/ZIP Co de Phone Number [address] [phone] * (ABNORMAL) BLOOD GASES JACLYN (12/26/2017 1:24 AM CDT) Only the most recent of2 resultswithin the time period is included. pH Mixed Venous 7.23(L) 7.30 - 7.40 12/26/2017 2:24 AM [facility] pCO2 Mixed Venous 28(L) 40 - 46 mmHg 12/26/2017 2:24 AM [facility] pO2 Mixed Venous 52(H) 35 - 42 mmHg 12/26/2017 2:24 AM [facility] HCO3 Mixed Venous 11.3(L) 22.0 - 26.0 mmol/L 12/26/2017 2:24 AM [facility] TCO2 Mixed Venous 12.1(L) 25.0 - 29.0 mmol/L 12/26/2017 2:24 AM [facility] Base Excess Venous -14.7(L) -2.0 - 2.0 mmol/L 12/26/2017 2:24 AM [facility] Hemoglobin Mixed Venous 13.1 12.0 - 15.5 g/dL 12/26/2017 2:24 AM [facility] Oxyhemoglobin Mixed Venous 80.1(H) 66.0 - 77.0 % 12/26/2017 2:24 AM [facility] Carboxyhemoglobin Venous 0.3 0.0 - 3.0 % 12/26/2017 2:24 AM [facility] Methemoglobin 0.5 0.0 - 2.0 % 12/26/2017 2:24 AM [facility] FI O2 Mixed Venous 21.0 % 2017 2:24 AM [facility] Blood BLOOD SPECIMEN / Unknown Venipuncture / Unknown 12/26/2017 1:24 AM CDT 12/26/2017 2:22 AM CDT Dannie Lafleur MD LAB - BLOOD GASES ORDERABLES Performing Organization Address [facility]/State/[facility] Co de Phone Number [facility] [address] [place] [address] * XR CHEST 2VW (12/26/2017 12:53 AM CDT) Anatomical Region Laterality Modality Chest Radiographic Sarahy ging 12/26/2017 1:58 AM CDT Impressions 12/26/2017 6:56 AM CDT FINDINGS/IMPRESSION: Lungs are clear and well-expanded. ??There is no focal consolidation, pleural effusion, or pneumothorax. The cardiomediastinal silhouette is normal. This report was dictated by Jd Gray M.D. (president sales and marketing). I, Dr. EDGAR GUTIERREZ MD have personally reviewed and interpreted this examination/study. This report was electronically signed by EDGAR GUTIERREZ MD ??on 12/26/2017 6:56 AM . Narrative 12/26/2017 6:56 AM CDT EXAMINATION: PA and lateral radiograph the chest. HISTORY: chest pain COMPARISON: Comparison is made with chest radiograph from 11/28/2017. Procedure Note Edgar Gutierrez MD - 12/26/2017 EXAMINATION: PA and lateral radiograph the chest. HISTORY: chest pain COMPARISON: Comparison is made with chest radiograph from 11/28/2017. FINDINGS/IMPRESSION: Lungs are clear and well-expanded. There is no focal consolidation, pleural effusion, or pneumothorax. The cardiomediastinal silhouette is normal. This report was dictated by Jd Gray M.D. (president sales and marketing). I, Dr. EDGAR GUTIERREZ MD have personally reviewed and interpreted this examination/study. This report was electronically signed by EDGAR GUTIERREZ MD on12/26/2017 6:56 AM . Mar Ernandez MD DIAGNOSTIC IMAGING O RDERABLES * HCG URINE QUALITATIVE - POINT OF CARE (12/25/2017 8:56 PM CDT) HCG Qual Urine Negative Negative [facility] P OCT TESTING QC Verified Yes Yes [facility] POCT TESTING Urine URINE / Unknown 12/25/2017 8 :56 PM CDT Lamar Alexander MANAGER OF PHOTOGRAPHY-ROADSIDE MECHANIC LAB - POINT OF C ARE ORDERABLES [facility] POCT TESTING [address] [place] [address] * (ABNORMAL) URINALYSIS NO MICROSCOPIC NO CULTURE (12/25/2017 8:55 PM CDT) Color UA Yellow Straw, Yellow, Colorless, Light Yellow 12/25/2017 9:16 PM CDT [facility] Clarity UA Clear Clear 12/25/2017 9:16 PM CDT [facility] Specific [place] UA 1.027 1.001 - 1.030 12/25/2017 9:16 PM CDT [facility] pH UA 5.5 5.0 - 8.0 12/25/2017 9:16 PM CDT [facility] Protein UA 20(A) <=20 mg/dL 12/25/2017 9:16 PM T [facility] Glucose UA >1000(A) Negative mg/dL 12/25/2017 9:16 PM T [facility] Ketone UA >80(A) Negative mg/dL 12/25/2017 9:16 PM T [facility] Bilirubin UA Negative Negative mg/dL 12/25/2017 9:16 PM CDT [facility] Blood UA Negative Negative 12/25/2017 9:16 PM T [facility] Nitrite UA Negative Negative 12/25/2017 9:16 PM T [facility] Leukocyte Esterase Trace(A) Negative 12/25/2017 9:16 PM T [facility] Urobilinogen UA <2.0 <2.0 mg/dL 8 9:16 PM CDT [facility] Urine URINE SPECIMEN OBTAINED BY CLEAN CATCH PROCEDURE / Unknown Collection / Unknown 12/25/2017 8:55 PM CDT 12/25/2017 8:59 PM CDT Lamar SMYTH LAB - URINALYSIS ORDERABLES [address] [phone] * (ABNORMAL) LIPASE BLOOD (12/25/2017 7:58 PM CDT) Only the most recent of2 resultswithin the time period is included. Lipase 5(L) 8 - 78 Units/L 12/25/2017 9:58 PM CDT [facility] Blood BLOOD SPECIMEN / Unknown Venipuncture / Unknown 12/25/2017 7:58 PM CDT 12/25/2017 8:03 PM CDT [facility]ar [facility] - CHEMISTRY ORDERABLES Performing Organization Address City/[facility]/ZIP Co de Phone Number [address] [phone] * (ABNORMAL) RENAL FUNCTION PANEL (12/10/2017 7:53 AM CDT) Only the most recent of2 resultswithin the time period is included. Glucose 69(L) 74 - 106 mg/dL 12/10/2017 8:13 AM CDT [facility] Sodium 141 136 - 145 mmol/L 12/10/2017 8:13 AM CDT [facility] Potassium 3.2(L) 3.5 - 5.1 mmol/L 12/10/2017 8:13 AM CDT [facility] Chloride 107 98 - 107 mmol/L 12/10/2017 8:13 AM CDT [facility] CO2 24 22 - 31 mmol/L 12/10/2017 8:13 AM CDT [facility] Calcium 7.5(L) 8.5 - 10.1 mg/dL 12/10/2017 8:13 AM CDT [facility] Anion Gap 10 8 - 16 mmol/L 12/10/2017 8:13 AM CDT [facility] BUN 3(L) 7 - 21 mg/dL 12/10/2017 8:13 AM CDT [facility] Creatinine 0.31(L) 0.50 - 1.30 mg/dL 12/10/2017 8:13 AM CDT [facility] Albumin 2.8(L) 3.4 - 5.0 gm/dL 12/10/2017 8:13 AM CDT [facility] Phosphorus 4.4 2.5 - 4.9 mg/dL 12/10/2017 8:13 AM CDT [facility] eGFR by MDRD >60 >60 mL/min/1.7 3m2 12/10/2017 8:13 AM CDT [facility] eGFR by MDRD >60 >60 mL/min/1.7 3m2 12/10/2017 8:13 AM CDT [facility] Blood BLOOD SPECIMEN / Unknown Venipuncture / Unknown 12/10/2017 7:53 AM CDT 12/10/2017 7:53 AM CDT Joelle Petty MD LAB - CHEMISTRY HANDY KONG [facility] Organization Address City/State/ZIP Co de Phone Number [facility] [address] [place] [address] * (ABNORMAL) PROCALCITONIN LEVEL (12/09/2017 9:07 PM CDT) Procalcitonin 0.26(H) <=0.10 ng/mL 12/10/2017 1:17 PM CDT [facility] Blood BLOOD SPECIMEN / Unknown Venipuncture / Unknown 12/09/2017 9:07 PM CDT 12/09/2017 10:09 PM CDT Narrative [facility] - 12/10/2017 1:17 PM CDT The change in procalcitonin (PCT) concentration over time provides support in decision making on antibiotic discontinuation for suspected or confirmed septic patients. Follow-up samples should be tested once every 1-2 days based upon physician discretion taking into account the patient? s evolution and progress. Consider discontinuation of ??antibiotic therapy ??if the PCT current ??is <= 0.5 ng/mL or if the delta PCT is > 80%. ??Duration of antibiotics should not be determined solely on PCT; established guidelines for the indication should be followed. ? PCT peak: ??Highest observed PCT concentration ? PCT current: Most recent PCT concentration ? Calculate delta PCT using the following equation: ?Delta PCT ??= ?? PCT Peak ? PCT current ??X 100% ? PCT Peak The Change in Procalcitonin Calculator is available at [email or web address] ?? If clinical picture has not improved and PCT remains high, reevaluate and consider treatment failure or other causes. Abdirahman Bruce MD LAB - CHEMISTRY HANDY KONG [facility] Organization Address City/State/ZIP Co de Phone Number [facility] [address] [place] [address] * TROPONIN I (12/09/2017 4:23 PM CDT) Troponin I <0.015 0.000 - 0.049 ng/mL 12/09/2017 6:47 PM CDT [facility] Blood BLOOD SPECIMEN / Unknown Venipuncture / Unknown 12/09/2017 4:23 PM CDT 12/09/2017 4:37 PM CDT Narrative [facility] - 12/09/2017 6:47 PM CDT Note: Diagnosis of myocardial infarction requires symptoms of ischemia or EKG changes of ischemia and Troponin I >99th of normal (0.05 ng/mL). Troponin should be drawn on initial assessment and 3-6 hours later as clinically indicated. Any condition resulting in myocardial cell damage can increase cardiac troponin levels. In addition to myocardial infarction, these include but are not limited to congestive heart failure (CHF), arrhythmia, myocarditis, and non-cardiac related causes such as pulmonary embolism, renal failure and sepsis. Steven Mccoy MD LAB - CHEMISTRY HANDY KONG Performing Organization Address City/[facility]/ZIP Co de Phone Number [facility] [address] [place] [address] * CULTURE VRE (12/09/2017 4:23 PM CDT) Pathologist [facility] Culture Negative for vancomycin-resi stant Enterococci (VRE) [place] 12/11/2017 6:12 AM CDT [facility] Microbiology ENTIRE RECTUM / Unknown Collection / Unknown 12/09/2017 4:23 PM CDT 12/09/2017 4:36 PM CDT Satinder Landry MD LAB - MICROBIOLOGY O RDERAETTA [facility] [address] [phone] * CULTURE MRSA (12/09/2017 4:23 PM CDT) Only the most recent of2 resultswithin the time period is included. Culture Negative for methicillin-resist ant Staphylococcus aureus (MRSA) [place] 12/11/2017 6:04 AM CDT [facility]CRO[facility] Microbiology ENTIRE RECTUM / Unknown Collection / Unknown 12/09/2017 4:23 PM CDT 12/09/2017 4:36 PM CDT Satinder Landry MD LAB - MICROBIOLOGY O RDERABLES [facility] [address] [place] [address], [facility] [phone] * (ABNORMAL) CBC W/O DIFFERENTIAL (11/30/2017 3:31 AM CDT) Only the most recent of2 resultswithin the time period is included. WBC 6.6 3.5 - 10.5 10? 3 /uL 11/30/2017 4:06 AM [facility] RBC 4.24 3.90 - 5.00 10? 6 /uL 11/30/2017 4:06 AM [facility] Hemoglobin 11.9(L) 12.0 - 15.5 g/dL 11/30/2017 4:06 AM [facility] Hematocrit 34.0(L) 35.0 - 45.0 % 11/30/2017 4:06 AM [facility] MCV 80.2(L) 81.0 - 97.0 fL 11/30/2017 4:06 AM [facility] MCH 28.1 28.0 - 34.0 pg 11/30/2017 4:06 AM [facility] MCHC 35.0 32.0 - 36.0 g/dL 11/30/2017 4:06 AM [facility] Platelet Count 324 150 - 400 10? 3 /uL 11/30/2017 4:06 AM [facility] RDW-SD 39.0 36.0 - 50.0 fL 11/30/2017 4:06 AM [facility] RDW-CV 13.4 11.2 - 14.8 % 11/30/2017 4:06 AM [facility] MPV 8.7(L) 9.3 - 12.8 fL 11/30/2017 4:06 AM [facility] Blood BLOOD SPECIMEN / Unknown Lab Venipuncture / Unknown 11/30/2017 3:31 AM CDT 11/30/2017 3:57 AM CDT Lucas Carrera MD LAB - HEMATOLOGY ORDERABLES Performing Organization Address [facility] Co de Phone Number [address] [phone] * (ABNORMAL) ALBUMIN BLOOD (11/30/2017 3:31 AM CDT) Albumin 3.2(L) 3.4 - 5.0 g/dL 11/30/2017 4:19 AM CDT [facility] Blood BLOOD SPECIMEN / Unknown Lab Venipuncture / Unknown 11/30/2017 3:31 AM CDT 11/30/2017 3:57 AM CDT Lewis Garcia MD LAB - CHEMISTRY O RDERABLES Performing Organization Address [facility] Co de Phone Number [address] [phone] * (ABNORMAL) CORTISOL BLOOD AM (11/29/2017 9:08 AM CDT) Only the most recent of4 resultswithin the time period is included. Cortisol AM 28.7(H) 3.7 - 19.4 mcg/dL 11/29/2017 2:21 PM CDT [facility] Blood BLOOD SPECIMEN / Unknown Venipuncture / Unknown 11/29/2017 9:08 AM CDT 11/29/2017 9:50 AM CDT Lucas Carrera MD LAB - CHEMISTRY ORDERABLES Performing Organization Address [facility] Co de Phone Number [address] [phone] * ACTH (11/29/2017 8:27 AM CDT) ACTH 30.1 7.2 - 63.3 pg/mL 11/30/2017 1:12 PM CDT [facility] ([facility]) Comment:ACTH reference inter tommie for samples collected between 7 and 10 AM. Blood BLOOD SPECIMEN / Unknown Venipuncture / Unknown 11/29/2017 8:27 AM CDT 11/29/2017 8:30 AM CDT N[facility]ative [facility]) - 11/30/2017 1:12 PM CDT Performed at: ??01 - [facility] [address] [place], [place] ??[id number] Operating Room Surgical Technologist: Gregorio Ortega PhD, Phone: ??[phone] Lucas Carrera MD LAB - CHEMISTRY ORDERABLES Performing Organization Address City/[facility]/ZIP Co de Phone Number [facility] ([facility]) [address] [place] [address] * CULTURE BLOOD (11/28/2017 10:30 PM CDT) Only the most recent of2 resultswithin the time period is included. Pathologist [facility] Culture No growth day 5 [place]QU[place]A 12/04/2017 2:00 AM CDT [facility] Blood PERIPHERAL BLOOD / Unknown Venipuncture / Unknown 11/28/2017 10:30 PM CDT 11/28/2017 10:37 PM CDT Lucas Carrera MD LAB - MICROBIOLO GY ORDERABLES Performing Organization Address City/[facility]/ZIP Co de Phone Number [facility] [address] [place], [place] [address] [place] [address] * PTT [facility] (11/28/2017 10:29 PM CDT) APTT 25.2 23.0 - 38.4 Seconds 11/28/2017 10:48 PM CDT [facility] Comment: Suggested therapeutic range for full dose I.V. heparin therapy for venous thromboembolism is 66.0-91.0 seconds. Blood BLOOD SPECIMEN / Unknown Venipuncture / Unknown 11/28/2017 10:29 PM CDT 11/28/2017 10:36 PM CDT Lucas Carrera MD LAB - COAGULATIO N ORDERABLES Performing Organization Address City/[facility]/[place] [address], [facility] [phone] * ALCOHOL ETHYL BLOOD (11/28/2017 10:29 PM CDT) Interpretation Ethanol None Detected None Detected mg/dL 11/28/2017 11:44 PM CDT [facility] Comment: Ethanol levels less than 10 mg/dL are resulted as None detected . Blood BLOOD SPECIMEN / Unknown Venipuncture / Unknown 11/28/2017 10:29 PM CDT 11/28/2017 11:22 PM CDT Lucas Carrera MD LAB - CHEMISTRY ORDERABLES Performing Organization Address [facility] Co de Phone Number [address] [phone] * XR CHEST 1VW PORTABLE (11/28/2017 10:22 PM CDT) Anatomical Region Laterality Modality Chest Radiographic Sarahy ging 11/29/2017 7:51 AM CDT Impressions 11/29/2017 12:49 PM CDT Impression: No acute pulmonary process. Dictated by Porter Zhao MD I, Dr. IMER DE LA CRUZ have personally reviewed and interpreted this examination/study. This report was electronically signed by IMER DE LA CRUZ ??on 11/29/2017 12:49 PM . Narrative 11/29/2017 12:49 PM CDT Exam: XR CHEST 1VW PORTABLE Date: 11/28/2017 10:22 PM History: dka Comparison: No prior study is available for comparison. Findings: There is no focal consolidation, pleural effusion, or pneumothorax. ??The cardiomediastinal silhouette is normal. ??The visible bony thorax is intact. Procedure Note Imer De La Cruz DO - 11/29/2017 Exam: XR CHEST 1VW PORTABLE Date: 11/28/2017 10:22 PM History: dka Comparison: No prior study is available for comparison. Findings: There is no focal consolidation, pleural effusion, or pneumothorax. The cardiomediastinal silhouette is normal. The visible bony thorax is intact. Impression: No acute pulmonary process. Dictated by Porter Zhao MD I, Dr. IMER DE LA CRUZ have personally reviewed and interpreted this examination/study. This report was electronically signed by IMER DE LA CRUZ on 11/29/2017 12:49 PM . Lucas Carrera MD DIAGNOSTIC IMAGI NG ORDERABLES * (ABNORMAL) URINALYSIS REFLEX TO MICROSCOPIC NO CULTURE (11/28/2017 9:48 PM CDT) Color UA Yellow Straw, Yellow, Colorless, Light Yellow 11/28/2017 10:53 PM [facility] Clarity UA Clear Clear 11/28/2017 10:53 PM [facility] Specific [place] UA 1.022 1.001 - 1.030 11/28/2017 10:53 PM [facility] pH UA 6.0 5.0 - 8.0 11/28/2017 10:53 PM [facility] Protein UA 20(A) <=20 mg/dL 11/28/2017 10:53 PM [facility] Glucose UA >1000(A) Negative mg/dL 11/28/2017 10:53 PM [facility] Ketone UA >80(A) Negative mg/dL 11/28/2017 10:53 PM [facility] Bilirubin UA Negative Negative mg/dL 11/28/2017 10:53 PM [facility] Blood UA Moderate(A) Negative 11/28/2017 10:53 PM [facility] Nitrite UA Negative Negative 11/28/2017 10:53 PM [facility] Leukocyte Esterase Negative Negative 11/28/2017 10:53 PM [facility] Urobilinogen UA <2.0 <2.0 mg/dL 8 10:53 PM [facility] RBC UA 65(H) 0 - 8 /HPF 11/28/2017 10:53 PM [facility] WBC UA <1 0 - 2 /HPF 11/28/2017 10:53 PM [facility] Squamous Epithelial Cells UA 1 0 - 1 /HPF 11/28/2017 10:53 PM CDT [facility] Mucus UA Occasional( A) None /LPF 11/28/2017 10:53 PM CDT [facility] Urine URINE SPECIMEN OBTAINED BY CLEAN CATCH PROCEDURE / Unknown Collection / Unknown 11/28/2017 9:48 PM CDT 11/28/2017 10:38 PM CDT Lucas Carrera MD LAB - URINALYSIS ORDERABLES Performing Organization Address City/[facility] Co de Phone Number [facility] [address] [place], [place] [id number] [place] [address] * CULTURE URINE (11/28/2017 9:48 PM CDT) Culture Urine <10,000 CFU/mL urogenital cassidy ORQUIDEA 11/30/2017 7:54 AM CDT [facility] Urine URINE SPECIMEN OBTAINED BY CLEAN CATCH PROCEDURE / Unknown Collection / Unknown 11/28/2017 9:48 PM CDT 11/28/2017 10:38 PM CDT Lucas Carrera MD LAB - MICROBIOLO GY ORDERABLES Performing Organization Address [facility] Co de Phone Number [facility] [address] [phone] * EKG 15-LEAD (05/29/2013 10:20 AM NUT ORCHARDIST) Ventricular Rate 77 BPM CG MUSE Atrial Rate 77 BPM CG MUSE P-R Interval 130 ms CG MUSE QRS Duration ms 78 ms CG MUSE Q-T Interval ms 346 ms CG MUSE QTC Calculation (Bezet) 391 ms CG MUSE Calculated P Perr[place] 30 degrees CG MUSE Calculated R Perris 87 degrees CG MUSE Calculated T Perris 48 degrees CG MUSE Interpretation EKG Sinus rhythm with marked sinus arrhythmia Normal ECG No previous ECGs available Confirmed by MD Paige, [place] ([id number]) on 05/29/2013 10:55:20 AM CG MUSE 05/29/2013 10:2 0 AM NUT ORCHARDIST 05/29/2013 10:55 AM NUT ORCHARDIST Narrative CG MUSE - 05/29/2013 10:55 AM NUT ORCHARDIST Procedure Note Document, Scanned - 05/29/2013 9:34 AM CST Transcriptions Document, Scanned - 05/29/2013 9:34 AM CST Document, Scanned - 05/29/2013 10:56 AM CST Ordering Provider Unlisted MD RAFAELA QUILES CG LUCIANA * ECHO CONSULT - PEDIATRIC (05/29/2013 9:15 AM NUT ORCHARDIST) 05/29/2013 9:15 AM NUT ORCHARDIST Narrative [facility] - 05/29/2013 11:29 AM NUT ORCHARDIST [facility] , Transthoracic Echocardiogram 2D, M-mode, Doppler, and Color Doppler Name: KARINA MENJIVAR MR #: [id number] Study date: 05/29/2013 Age: 17 years : 1995 Gender: Female Ht: 61.9 in / 157.2 cm Wt: 124.1 lb / 56.4 kg BSA: 1.56 m?? HR: BP: / age: AARTI: Maternal age: RD MECHANICAL ENGINEER: ??Theodore Gibson MD PEDIATRIC ECHO IT INFRASTRUCTURE ENGINEER: ??STERLING Cramer REFERRING PHYSICIAN: ??JOLANTA FREEMAN MD History/ Indications: family history DORV. Chest pain. Risk factors: Diabetes mellitus: type 1. Procedure: The procedure was performed in the echo lab. Anatomic relationships: Visceral situs: normal. Left sided cardiac apex (levocardia). Normal atrial situs (atrial situs solitus). Concordant atrioventricular alignment. Ventricular d-loop. Normal infundibular anatomy. Concordant ventriculoarterial connection. Normally related great vessels. Systemic veins: SVC: The superior vena cava and left innominate vein appeared of normal caliber, with normal flow. IVC: The inferior vena cava was normal in size and course. IVC Doppler: The flow pattern was normal. Pulmonary veins: The pulmonary veins drained normally to the left atrium. Doppler: Doppler flow pattern was normal in the pulmonary vein(s). Right atrium: Size was normal. Left atrium: Size was normal. Atrial septum: No defect or patent foramen ovale was identified. Tricuspid valve: The valve structure was normal. Doppler: The transtricuspid velocity was within the normal range. There was no evidence for tricuspid stenosis. There was no regurgitation. Mitral valve: Valve structure was normal. There is no mitral valve prolapse. Doppler: The transmitral velocity was within the normal range. There was no evidence for stenosis. There was no regurgitation. Right ventricle: The cavity size was normal. Wall thickness was normal. Systolic function was normal. RV outflow tract: There was no obstruction. Left ventricle: The cavity size was normal. Wall thickness was normal. Systolic function was normal. There were no regional wall motion abnormalities. Doppler: Left ventricular diastolic function parameters were normal. LV outflow tract: There was no outflow obstruction. Ventricular septum: Thickness was normal. The septum was intact. Pulmonic valve: Leaflets exhibited normal thickness and normal cuspal separation. Doppler: The transpulmonic velocity was within the normal range. Aortic valve: The valve was trileaflet. Leaflets exhibited normal thickness and normal cuspal separation. Doppler: Transaortic velocity was within the normal range. There was no stenosis. There was no regurgitation. Pulmonary artery: The main pulmonary artery was normal, with normal-sized, confluent proximal branch pulmonary arteries. Aorta: There was a normal-sized aortic arch with normal brachiocephalic branching. The proximal portion of the descending aorta was not well visualized, however Doppler evalution of the aorta from the subcostal view does not suggest coarctation. The root was normal in size. The ascending aorta size was normal. Coronary arteries: The size and course of the left main, proximal left anterior descending, and proximal right coronary arteries were normal. Right coronary artery: Flow was normal. Left main coronary artery: Flow was normal. Left anterior descending: Flow was normal. Extracardiac shunting: No ductal shunt was detected by Doppler. Pericardium: There was no pericardial effusion. The pericardium was normal in appearance. Summary: - ??Diagnoses: Normal intracardiac anatomy and function. The proximal portion of the descending aorta was not well visualized, however Doppler evalution of the aorta from the subcostal view does not suggest coarctation. Prepared and signed by Theodore Gibson MD Signed 05/29/2013 11:29:38 System measurement tables CW TR Vmax: 1.9 m/s TR maxP mmHg MM %FS: 41.9 % Ao Diam: 25.5 mm EDV(Teich): 95 ml EF(Teich): 72.9 % ESV(Teich): 25.7 ml IVSd: 5.3 mm IVSs: 11.6 mm LA Diam: 32.3 mm LA/Ao: 1.3 LVIDd: 45.5 mm LVIDs: 26.5 mm LVPWd: 7.4 mm LVPWs: 14.8 mm LVd Mass: 93.6 g LVd Mass (ASE): 86.4 g LVd Mass Ind (ASE): 55.4 g/m2 LVd Mass Index: 60 g/m2 LVs Mass: 121.4 g LVs Mass (ASE): 108.6 g LVs Mass Ind (ASE): 69.6 g/m2 LVs Mass Index: 77.8 g/m2 SV(Teich): 69.3 ml Procedure Note 05/29/2013 [facility] , Transthoracic Echocardiogram 2D, M-mode, Doppler, and Color Doppler Name: KARINA MENJIVAR MR #: [id number] Study date: 05/29/2013 Age: 17 years : 1995 Gender: Female Ht: 61.9 in / 157.2 cm Wt: 124.1 lb / 56.4 kg BSA: 1.56 m?? HR: BP: / age: AARTI: Maternal age: RD MECHANICAL ENGINEER: Theodore Gibson MD PEDIATRIC ECHO IT INFRASTRUCTURE ENGINEER: STERLING Cramer REFERRING PHYSICIAN: JOLANTA FREEMAN MD History/ Indications: family history DORV. Chest pain. Risk factors: Diabetes mellitus: type 1. Procedure: The procedure was performed in the echo lab. Anatomic relationships: Visceral situs: normal. Left sided cardiac apex (levocardia). Normal atrial situs (atrial situs solitus). Concordant atrioventricular alignment. Ventricular d-loop. Normal infundibular anatomy. Concordant ventriculoarterial connection. Normally related great vessels. Systemic veins: SVC: The superior vena cava and left innominate vein appeared of normal caliber, with normal flow. IVC: The inferior vena cava was normal in size and course. IVC Doppler: The flow pattern was normal. Pulmonary veins: The pulmonary veins drained normally to the left atrium. Doppler: Doppler flow pattern was normal in the pulmonary vein(s). Right atrium: Size was normal. Left atrium: Size was normal. Atrial septum: No defect or patent foramen ovale was identified. Tricuspid valve: The valve structure was normal. Doppler: The transtricuspid velocity was within the normal range. There was no evidence for tricuspid stenosis. There was no regurgitation. Mitral valve: Valve structure was normal. There is no mitral valve prolapse. Doppler: The transmitral velocity was within the normal range. There was no evidence for stenosis. There was no regurgitation. Right ventricle: The cavity size was normal. Wall thickness was normal. Systolic function was normal. RV outflow tract: There was no obstruction. Left ventricle: The cavity size was normal. Wall thickness was normal. Systolic function was normal. There were no regional wall motion abnormalities. Doppler: Left ventricular diastolic function parameters were normal. LV outflow tract: There was no outflow obstruction. Ventricular septum: Thickness was normal. The septum was intact. Pulmonic valve: Leaflets exhibited normal thickness and normal cuspal separation. Doppler: The transpulmonic velocity was within the normal range. Aortic valve: The valve was trileaflet. Leaflets exhibited normal thickness and normal cuspal separation. Doppler: Transaortic velocity was within the normal range. There was no stenosis. There was no regurgitation. Pulmonary artery: The main pulmonary artery was normal, with normal-sized, confluent proximal branch pulmonary arteries. Aorta: There was a normal-sized aortic arch with normal brachiocephalic branching. The proximal portion of the descending aorta was not well visualized, however Doppler evalution of the aorta from the subcostal view does not suggest coarctation. The root was normal in size. The ascending aorta size was normal. Coronary arteries: The size and course of the left main, proximal left anterior descending, and proximal right coronary arteries were normal. Right coronary artery: Flow was normal. Left main coronary artery: Flow was normal. Left anterior descending: Flow was normal. Extracardiac shunting: No ductal shunt was detected by Doppler. Pericardium: There was no pericardial effusion. The pericardium was normal in appearance. Summary: - Diagnoses: Normal intracardiac anatomy and function. The proximal portion of the descending aorta was not well visualized, however Doppler evalution of the aorta from the subcostal view does not suggest coarctation. Prepared and signed by Theodore Gibson MD Signed 05/29/2013 11:29:38 System measurement tables CW TR Vmax: 1.9 m/s TR maxP mmHg MM %FS: 41.9 % Ao Diam: 25.5 mm EDV(Teich): 95 ml EF(Teich): 72.9 % ESV(Teich): 25.7 ml IVSd: 5.3 mm IVSs: 11.6 mm LA Diam: 32.3 mm LA/Ao: 1.3 LVIDd: 45.5 mm LVIDs: 26.5 mm LVPWd: 7.4 mm LVPWs: 14.8 mm LVd Mass: 93.6 g LVd Mass (ASE): 86.4 g LVd Mass Ind (ASE): 55.4 g/m2 LVd Mass Index: 60 g/m2 LVs Mass: 121.4 g LVs Mass (ASE): 108.6 g LVs Mass Ind (ASE): 69.6 g/m2 LVs Mass Index: 77.8 g/m2 SV(Teich): 69.3 ml Tammy Freeman MD ECHO ORDERABLES [facility] [address] [place] [address] Care Teams Angle Bender Relationship Specialty Start Date End Date Jolanta Freeman MD PCP - General Pediatrics 05/24/13
--- OUTSIDE RECORDS SUMMARY | 2024-05-10 18:52 | XMS_ITS | Encounter Summary ---
Author Organization [facility] Address [address] [place] [address] Care Team Providers Care Trimming Caser Name Role Phone Jolanta Freeman MD Primary Care Provider + [phone] Reason for Visit * Reason Onset Date Comments MEDICATION REFILL 05/09/2018 Encounter Details Date Type Department Care Team (Late st Contact Info) Description 05/09/2018 Refill [facility] [address] [place] [address] Pawan Ram MD [address] [place] [address] MEDICATION REFILL Social History Tobacco Use Types [...] No 12/26/2017 documented as of this encounter Miscellaneous Notes * Telephone Encounter - Bri Patel RN - 05/09/2018 10:14 AM PROGRESSIVE ASSEMBLER AND FITTER Please refill on Gali behalf patient out of medication RESSIVE ASSEMBLER AND FITTER * Telephone Encounter - Britany Hope - 05/09/2018 8:45 AM CST ANAM [id number] RESSIVE ASSEMBLER AND FITTER documented in this encounter Plan of Treatment Not on file documented as of this encounter Visit Diagnoses Not on filedocumented in this encounter Care Teams Trimming Caser Relationship Specialty Start Date End Date Jolanta Freeman MD PCP - General Pediatrics 05/24/13 documented as of this encounter
--- OUTSIDE RECORDS SUMMARY | 2024-05-10 18:52 | XMS_ITS | Encounter Summary ---
Author Organization [facility] Address [address] [place] [address] Care Team Providers Care Spout Liner Helper Name Role Phone Jolanta Freeman MD Primary Care Provider + [phone] Reason for Visit * Reason Comments Refill Request Encounter Details Date Type Department Care Team (Late st Contact Info) Description 12/09/2019 Refill [facility] [address] [place] [address] Pawan Ram MD [address] [place] [address] Refill Request Social History Tobacco Use Types Packs/Day Years [...] or have serious hearing difficult y? No 10/07/2018 Is person blind or have serious difficulty seein g? No 10/07/2018 Does person have serious dif ficulty walking/climbing stairs? No 10/07/2018 Does person have difficulty dressing/bathing? No 10/07/2018 Does person have difficulty doing errands alone? No 10/07/2018 Cognitive Status Response Date of Assessm ent Does person have difficulty concentrating/remembering/making decisions? No 10/07/2018 documented as of this encounter Plan of Treatment Not on file documented as of this encounter Visit Diagnoses Diagnosis Type 1 diabetes mellitus with ketoacidosis without coma (HCC) documented in this encounter Care Teams Spout Liner Helper Relationship Specialty Start Date End Date Jolanta Freeman MD PCP - General Pediatrics 05/24/13 documented as of this encounter
--- OUTSIDE RECORDS SUMMARY | 2024-05-10 18:52 | XMS_ITS | Clinical Summary ---
Author Organization [email or web address] Address [address] [place] [address] Care Team Providers Care Breading Machine Tender Name Role Phone Jolanta Freeman MD Primary Care Provider + [phone] Source Comments [email or web address],non-owned Affiliates and Associated Physician Practices is amultiple site organization consisting of ambulatory clinics and hospital sitesin [place], [place], [place] and [place]. This disclosure is being madepursuant to the Care Everywhere program and may not contain all information available regarding this patient. Last updated 18.[email or web address] Allergies No known active allergies Medications * Be aware that medications may not be up to date on this document. Alwaysverify current medications with the patient. Medication Sig Dispensed Refills Start Date End Date Status sertraline (ZOLOFT) 50 MG tablet Take 1 tablet by mouth once daily 30 tablet 2 12/31/2017 Active Additional Information Patient not taking.Reported on 10/08/2018 omeprazole (PRILOSEC) 40 MG capsule Take 1 capsule by mouth once daily 30 capsule 2 12/30/2017 Active Additional Information Patient not taking.Reported on 10/08/2018 insulin lispro (HUMALOG) 100 UNIT/ML vialIndications:Ty pe 1 diabetes mellitus with ketoacidosis without coma (HCC) Inject 6 Units subcutaneously 3 times daily before meals Pt specific sliding scale based off diet 10 mL 11 02/07/2018 Active insulin syringe-needle (BD ULTRAFINE II) 31G X 5/16 0.3 ML syringeIndications :Type 1 diabetes mellitus with ketoacidosis without coma (HCC) 1 Each by Injection route 3 times daily 100 Each 11 02/07/2018 Active blood glucose (TRUE METRIX BLOOD GLUCOSE TEST) test stripIndications:T ype 1 diabetes mellitus with ketoacidosis without coma (HCC) Use 1 strip 3 times daily 100 strip 11 02/07/2018 Active lancetsIndications :Type 1 diabetes mellitus with ketoacidosis without coma (HCC) Use 1 Each 3 times daily 100 Each 11 02/07/2018 Active insulin pen needle (NOVOFINE 31) 31G X 5 MM needleIndications: Type 1 diabetes mellitus with ketoacidosis without coma (HCC) 1 Each once daily 100 Each 11 03/02/2018 Active BASAGLAR KWIKPEN (BASAGLAR) penIndications:Typ e 1 diabetes mellitus with ketoacidosis without coma (HCC) Inject 10 Units subcutaneously at bedtime 15 mL 11 05/09/2018 Active Active Problems Problem Noted Date Diagnosed Date Abnormal EKG 10/12/2018 Overview (10/12/2018): 10/2018 Diabetic ketoacidosis withou t coma associated with type 1 diabetes mellitus 10/07/2018 Type 1 diabetes mellitus aff ecting in first trimester, antepartum 10/07/2018 Type 1 diabetes mellitus with ketoacidosis witho ut coma 11/28/2017 Resolved Problems Problem Noted Date Diagnosed Date Resolved Date Hypokalemia 12/27/2017 02/07/2018 Gastroparesis due to DM 12/27/2017 100 12/2017 High anion gap metabolic acidosis 12/09/2017 02/07/2018 Family History Medical History Relation Name Comments Diabetes - Type 1 Maternal Grandmother Relation Name Status Comments Maternal Grandmother Social History Tobacco Use Types Packs/Day Years [...] Mass Index 25.05 02/07/2018 2:10 PM CDT Plan of Treatment Health Maintenance Due Date Last Done Comments PAP SMEAR 1996 PNEUMOCOCCAL VACCINE (1 of 2 - PCV) 2002 HEPATITIS C SCREENING 06/24/2014 DTAP/TDAP/TD VACCINES (1 - Tdap) 2015 HEPATITIS B VACCINE (1 of 3 - 19+ 3-dose series) 2015 DIABETES RETINOPATHY SCREENING 02/07/2018 DIABETES-FOOT EXAM WITH MONOFILAMENT 02/07/2018 DIABETES-HGB A1C 01/08/2019 10/08/2018, 01/2018, 11/28/2017 DIABETES-SERUM CREATININE 10/10/20192018, 10/08/2018, 10/08/2018, Additional history exists DEPRESSION SCREENING 05/03/2023 DIABETES - URINE PROTEIN SCREENING 05/03/2023 COVID-19 VACCINE ( season) 2024 INFLUENZA VACCINE (#1) 2024 01/01/2017 ZOSTER VACCINE (1 of 2) 2046 HIV SCREENING Completed 10/07/2018 HIB VACCINE Aged Out No longer eligi ble based on patient's age to complete this topic HPV VACCINE Aged Out No longer eligi ble based on patient's age to complete this topic MENINGOCOCCAL VACCINE Aged Out No leif kelsie eligible based on patient's age to complete this topic Procedures Procedure Name Priority Date/Time Associated Diagnosis Comments COMPREHENSIVE METABOLIC PANEL AM Draw 10/09/2018 5:22 AM CDT HEMOGLOBIN A1C LUPE 10/08/2018 12:52 AM CDT Type 1 diabetes mellitus with ketoacidosis without coma (HCC) 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, antepartum (HCC) HIV-1 HIV-2 ANTIBODY + HIV P24 AG PANEL Add on 10/07/2018 8:53 PM CDT from Last 3 Months or Most Recently Relevant to Health Maintenance Results * (ABNORMAL) COMPREHENSIVE METABOLIC PANEL (10/09/2018 5:22 AM CDT) Glucose 124(H) 74 - 106 mg/dL 10/09/2018 6:05 AM CDT [facility] Sodium 134(L) 136 - 145 mmol/L 10/09/2018 6:05 AM CDT [facility] Potassium 4.1 3.5 - 5.1 mmol/L 10/09/2018 6:05 AM CDT [facility] Chloride 99 98 - 107 mmol/L 10/09/2018 6:05 AM CDT [facility] CO2 26 23 - 31 mmol/L 10/09/2018 6:05 AM CDT [facility] Calcium 8.9 8.4 - 10.2 mg/dL 10/09/2018 6:05 AM CDT [facility] Anion Gap 9 8 - 16 mmol/L 10/09/2018 6:05 AM [facility] BUN 2(L) 7 - 18.7 mg/dL 10/09/2018 6:05 AM CDT [facility] Creatinine 0.44(L) 0.55 - 1.02 mg/dL 10/09/2018 6:05 AM T [facility] Alkaline Phosphatase 69 40 - 150 U/L 10/09/2018 6:05 AM CDT [facility] ALT 9(L) 13 - 61 U/L 10/09/2018 6:05 AM CDT [facility] AST 12 5 - 34 U/L 10/09/2018 6:05 AM [facility] Protein Total 6.1(L) 6.4 - 8.3 gm/dL 10/09/2018 6:05 AM CDT [facility] Albumin 3.6 3.5 - 5.2 gm/dL 10/09/2018 6:05 AM CDT [facility] Bilirubin Total 0.7 0.2 - 1.0 mg/dL 10/09/2018 6:05 AM CDT [facility] eGFR by MDRD >60 >60 mL/min/1.7 3m2 10/09/2018 6:05 AM CDT [facility] eGFR by MDRD >60 >60 mL/min/1.7 3m2 10/09/2018 6:05 AM CDT [facility] Blood BLOOD SPECIMEN / Unknown Lab Venipuncture / Unknown 10/09/2018 5:22 AM CDT 10/09/2018 5:28 AM CDT Narrative [facility] - 10/09/2018 6:05 AM CDT Attention clinician: BUN Reference Range has changed. Suni Barrera MD LAB - CHEMISTRY O RDERABLES Performing Organization Address [facility] Co de Phone Number [facility] [address] [place] [address] * (ABNORMAL) HEMOGLOBIN A1C (10/08/2018 12:52 AM CDT) Pathologist [facility] Hemoglobin A1c 10.3(H) 4.0 - 6.1 % 10/08/2018 1:18 AM CDT [facility] Estimated Average Glucose 249 mg/dL 10/08/2018 1:18 AM CDT [facility] Blood BLOOD SPECIMEN / Unknown Lab Venipuncture / Unknown 10/08/2018 12:52 AM CDT 10/08/2018 12:57 AM CDT [facility] - 10/08/2018 1:18 AM CDT Attention clinician: ??Reference Range has changed. Cody Palmer MD LAB - CHEMISTRY HANDY KONG Performing Organization Address [facility] Co de Phone Number [facility] [address] [place] [address] * HIV-1 HIV-2 ANTIBODY + HIV P24 AG PANEL (10/07/2018 8:53 PM CDT) Pathologist [facility] HIV1/2 Ab + P24 Ag Non Reactive Non Reactive 10/07/2018 9:41 PM CDT [facility] Blood BLOOD SPECIMEN / Unknown Lab Venipuncture / Unknown 10/07/2018 8:53 PM CDT 10/07/2018 8:59 PM CDT Narrative [facility] - 10/07/2018 9:41 PM CDT No Laboratory evidence of HIV infection. Franchesca Orellana MD LAB - CHEMISTR Y ORDERABLES [facility] [address] [place] [address] from Last 3 Months or Most Recently Relevant to Health Maintenance Advance Directives * Full Code (Latest Code Status on File) Date Activated Date Inactivated Comments 10/07/2018 8:11 PM 10/09/2018 5:11 PM * Full Code Date Activated Date Inactivated Comments 12/26/2017 4:17 AM 12/30/2017 2:35 PM * Full Code Date Activated Date Inactivated Comments 12/09/2017 3:53 PM 12/10/2017 7:09 PM * Full Code Date Activated Date Inactivated Comments 11/28/2017 9:40 PM 11/30/2017 4:07 PM Care Teams Breading Machine Tender Relationship Specialty Start Date End Date Jolanta Freeman MD PCP - General Pediatrics 05/24/13
--- OUTSIDE RECORDS SUMMARY | 2024-05-10 18:52 | XMS_ITS | Encounter Summary ---
Author Organization [facility] Address [address] [place] [address] Care Team Providers Care Hvac Field Service Technician Name Role Phone Jolanta Freeman MD Primary Care Provider + [phone] Encounter Details Date Type Department Care Team (Late st Contact Info) Description 05/06/2018 Orders Only [facility] [address] [place] [address] Bri Morales RN Social History Tobacco Use Types Packs/Day [...] on filedocumented in this encounter Care Teams Hvac Field Service Technician Relationship Specialty Start Date End Date Jolanta Freeman MD PCP - General Pediatrics 05/24/13 documented as of this encounter
--- OUTSIDE RECORDS SUMMARY | 2024-05-10 18:52 | XMS_ITS | Encounter Summary ---
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 Name Role Phone Jolanta Freeman MD Primary Care Provider + [phone] Reason for Visit * Auth/Cert Specialty Diagnoses / Procedures Referred By Rachael frey Referred To Contact Referral ID Status Reason Start Date Expiration Date Visits Re quested Visits Authorized [id number] 1 1 Encounter Details Date Type Department Care Team (Latest Contact Info) Description 10/07/2018 7:40 PM CDT - 10/09/2018 3:50 PM CDT Hospital Encounter HC 5E ANTEPARTUM/MOTHER BABY [address] [place], [place] [id number] Franchesca Orellana MD [address] [id number] Obstetrics Discharge Disposition: Left Against Medical Advice/Discontinued Care Social History Tobacco Use Types Packs/Day Years Used Date Smoking Tobacco: Never Smokeless Tobacco: Never Alcohol Use Standard Drinks/Week Comments Yes 0 (1 standard drink = 0.6 oz pur e alcohol) occasional Comments Yes Sex and Gender Information Value [...] 6.4 oz) 10/09/2018 12:34 AM CDT Height - - Body Mass Index 25.05 02/07/2018 2:10 PM CDT documented in this [...] No 10/07/2018 documented as of this encounter Medications at Time of Discharge Medication Sig Dispensed Refills Start Date End Date BASAGLAR SHEREE (BASAGLAR) penIndications:Type 1 diabetes mellitus with ketoacidosis without coma (HCC) Inject 10 Units subcutaneously at bedtime 15 mL 11 05/09/2018 blood glucose (TRUE METRIX BLOOD GLUCOSE TEST) test stripIndications:Type 1 diabetes mellitus with ketoacidosis without coma (HCC) Use 1 strip 3 times daily 100 strip 02/07/2018 insulin lispro (HUMALOG) 100 UNIT/ML vialIndications:Type 1 diabetes mellitus with ketoacidosis without coma (HCC) Inject 6 Units subcutaneously 3 times daily before meals Pt specific sliding scale based off diet 10 mL 11 02/07/2018 insulin pen needle (NOVOFINE 31) 31G X 5 MM needleIndications:Typ e 1 diabetes mellitus with ketoacidosis without coma (HCC) 1 Each once daily 100 Each 03/02/2018 insulin syringe-needle (BD ULTRAFINE II) 31G X 5/16 0.3 ML syringeIndications:Ty pe 1 diabetes mellitus with ketoacidosis without coma (HCC) 1 Each by Injection route 3 times daily 100 Each 02/07/2018 lancetsIndications:Ty pe 1 diabetes mellitus with ketoacidosis without coma (HCC) Use 1 Each 3 times daily 100 Each 11 02/07/2018 omeprazole (PRILOSEC) 40 MG capsule Take 1 capsule by mouth once daily 30 capsule 2 12/30/2017 sertraline (ZOLOFT) 50 MG tablet Take 1 tablet by mouth once daily 30 tablet 2 12/31/2017 documented as of this encounter Progress Notes * Kirsten Thomas RN - 10/09/2018 4:03 PM CDT Ms. Fuchs left AMA at 1550; discussion had at bedside with Dr. Harrison for indications for continued inpatient management for blood sugar management, electrolyte replacement, labs follow-up; after discussion, Ms. Fuchs states that she still wants to leave ama d/t missing daughter at home and possible difficulty finding transportation home after today; Ms. Fuchs states that she does not want to take insurance provided transportation to home; iv removed; AMA form signed; Ms. Fuchs left at 1550. * Kirsten Thomas RN - 10/09/2018 3:59 PM CDT 10/09/18 1555 Clinician Communication/Critical Test Name of Clinician Notified: Dr. Harrison Role: OB Resident Notification Method: Called/Phoned Action No new orders received-Care to Continue Comments: Dr. Harrison notified that Ms. Fuchs has left ama * Kirsten Thomas RN - 10/09/2018 3:56 PM CDT 10/09/18 1430 Clinician Communication/Critical Test Name of Clinician Notified: Dr. Harrison Role: OB Resident Notification Method: In Person Comments: Dr. Harrison at bedside to discuss indications for continued inpatient management of bloodsugars, electrolyte replacement, follow-up labs; Ms. Fuchs states wanting to leave ama d/t missing daughter who will turn 3 tomorow; Ms. Fucsh states that she will not have a ride home tomorow if discharged then and does not want to use insurance provided transportation; nursing present for discussion at bedside. * Suni Maldonado RN - 10/09/2018 3:43 PM CDT Iv discontinued related patient left ama. Last blood sugar 171. Dr Smith notified. Encouraged patient to stay to monitor her diabetes. * Kelli Harrison MD - 10/09/2018 2:52 PM CDT R2 progress note Went to talk to patient due to desire to leave AMA. Discussed transitioning off of insulin drip andmonitoring glucose as well as electrolytes after drip discontinued. After discussion with Dr Palmer will discontinue insulin and give patient her insulin to carb ratio of novolog since she is about toeat. Recommended to the patient that she resume her lantus at home this evening. Encouraged her to follow up with her primary obgyn and to return if anything changes. Discussed with Dr Palmer and Dr Christian Harrison MD 10/09/2018 2:55 PM * Kirsten Thomas RN - 10/09/2018 1:22 PM CDT 10/09/18 1319 Clinician Communication/Critical Test Name of Clinician Notified: Dr. Harriosn Role: OB Resident Notification Method: Called/Phoned Action No new orders received-Care to Continue Comments: Notified Dr. Harrison that Ms. Fuchs states that she will leave the hspt today whether sheis discharged or not; nursing did educate Ms. Fuchs that there is a transitional period of times between the insulin drip and home insulin regimen; Ms. Fuchs states tearfully that she cannot stay in hspt past today and will leave regardless; Dr. Harrison instructs that will consult with team on POC for Ms. Fuchs and will call back with further information or orders. * Kirsten Thomas RN - 10/09/2018 11:21 AM CDT Ms. Fuchs states that nausea is improved and mild at this time; she reports 1 bout of emesis through the night; antiemetics po are ordered and offered; she declines antiemetics at this time; discussed with Ms. Fuchs a trial of eating today; glucerna diabetic supplement ordered to TID; 1st one delivered by dietary and at bedside; nursing encouraged Ms. Fuchs to drink glucerna. * Kirsten Thomas RN - 10/09/2018 10:00 AM CDT 10/09/18 0956 Clinician Communication/Critical Test Name of Clinician Notified: Dr. Luis Palmer Role: OB Resident Notification Method: Called/Phoned Action No new orders received-Care to Continue Comments: notified Dr. Palmer that have lost iv access on Ms. Fuchs; multiple attempts have been made so far to regain iv access; currently an RN from [facility] is at bedside attempting to gain iv access; current blood sugar is 189; iv drip and been off for about 45 min * Kirsten Thomas RN - 10/09/2018 9:37 AM CDT 10/09/18 0930 Clinician Communication/Critical Test Name of Clinician Notified: Dr. Gonzales Role: Attending Physician Notification Method: In Person Comments: Dr. Gonzales at bedside for morning rounds * Merari Naylor - 10/09/2018 6:55 AM CDT MS4 Antepartum Progress Note Date: 10/09/2018 Hospital Day: 2 Subjective: Karina Fuchs is a 23 year old at 9w1d weeks gestation. There were no acute overnight events. She reports feeling nauseous this AM with no episodes of vomiting overnight. She denies vaginal bleeding, loss of fluid, and contractions. She reports normal movement. Objective: Patient Vitals for the past 24 hrs: Temp Pulse Resp BP SpO2 10/09/18 0430 - (!) 160 - - - 10/09/18 0420 97.6 ??F (36.4 ??C) - 16 121/77 99 % 10/09/18 0120 - 91 16 126/77 99 % 10/09/18 0047 - (!) 150 - - - 10/08/18 2328 98.3 ??F (36.8 ??C) - 18 121/82 98 % 10/08/18 2304 - (!) 150 - - - 10/08/185 98.5 ??F (36.9 ??C) 91 16 (!) 146/101 100 % 10/08/18 1851 - 81 - - - 10/08/18 1632 - - - - 100 % 10/08/18 1631 98.6 ??F (37 ??C) - - 113/68 - 10/08/18 1356 - - 18 118/70 98 % 10/08/18 0813 98.4 ??F (36.9 ??C) - 18 124/84 - Intake/Output Summary (Last 24 hours) at 10/09/18 0656 Last data filed at 10/09/18 0543 Gross per 24 hour Intake 5303.9 ml Output 5800 ml Net -496.1 ml Physical Exam: General: alert, cooperative, no distress Lungs: clear to auscultation bilaterally Heart: regular rate and rhythm Abdomen: gravid, nontender, no palpable contractions Extremities: normal, non-tender bilaterally Labs: Recent Labs Component Name 10/09/18 0522 10/08/18 0613 12/30/17 0545 WBC 8.6 10.3 5.9 HGB 14.2 14.1 10.8* HCT 41.5 40.8 32.4* PLTCOUNT 420* 383 332 Recent Labs Component Name 10/09/18 0522 10/08/18 1657 10/08/18 1142 SODIUM 134* 133* 131* POTASSIUM 4.1 2.8* 3.7 CHLORIDE 99 103 101 CO2 26 22* 17* BUN 2* 3* 5* CREATININE 0.44* 0.46* 0.41* GLUCOSE 124* 89 135* CALCIUM 8.9 8.4 8.4 ALBUMIN 3.6 3.5 3.5 ALKPHOS 69 68 71 ALT 9* 9* 8* AST 12 9 10 TBIL 0.7 0.7 0.8 TPROT 6.1* 5.9* 6.1* EGFR >60 >60 >60 NST/Flor [place]: See separate procedure note MEDICATIONS FOR CURRENT ENCOUNTER: ?? SCHEDULED MEDICATIONS: ?? And ?? Followed by ?? docusate sodium (COLACE) capsule 100 mg, Oral, BID ?? famotidine (PEPCID) tablet 20 mg, Oral, QDAY ?? vitamin with iron tablet 1 tablet, Oral, QDAY ?? scopolamine (TRANSDERM-SCOP) 1 patch, Transdermal, q72h ?? scopolamine patch placement confirmation, Transdermal, BID ?? sodium phosphate 20 mmol in dextrose 5 % 256.7 mL bolus, Intravenous, Once ?? [COMPLETED] lactated ringers IV bolus, Intravenous, Once ?? [COMPLETED] lactated ringers IV bolus, Intravenous, Once ?? [COMPLETED] lactated ringers IV bolus, Intravenous, Once ?? [COMPLETED] potassium chloride 20 mEq in 100 mL SW bolus, Intravenous, Once ?? [COMPLETED] potassium chloride 20 mEq in 100 mL SW bolus, Intravenous, Once ?? [COMPLETED] potassium chloride 20 mEq in 100 mL SW bolus, Intravenous, q6h ?? CONTINUOUS MEDICATIONS: ?? dextrose 5% and lactated ringers solution, Intravenous, Continuous ?? insulin regular human (humuLIN R; novoLIN R) 100 Units in 0.9% NaCl 100 mL OB infusion, Intravenous, Continuous ?? PRN MEDICATIONS: ?? acetaminophen (TYLENOL) tablet 650 mg, Oral, q6h PRN ?? bisacodyl (DULCOLAX) suppository 10 mg, Rectal, QDAY PRN ?? dextrose IV 12.5 g, Intravenous, PRN ?? glucagon (GLUCAGEN) injection 1 mg, Intramuscular, PRN ?? lidocaine-prilocaine (EMLA) cream, Topical, Once PRN ?? metoclopramide (REGLAN) tablet 10 mg, Oral, q6h PRN ?? prochlorperazine (COMPAZINE) tablet 5 mg, Oral, q8h PRN ?? promethazine (PHENERGAN) suppository 25 mg, Rectal, q6h PRN ?? simethicone (MYLICON) chew tablet 160 mg, Oral, 4X/day - PC & NIGHTLY PRN ?? trimethobenzamide (TIGAN) injection 200 mg, Intramuscular, q6h PRN Assessment/Plan: 23 year old at 9w1d, with 1. Nausea/vomiting in 1. No episodes of emesis overnight, only reported nausea this AM. Received 2.Tachycardic to 160s overnight with one elevated BP this AM (146/101) likely due to dehyrdation 2. Type I Diabetes 1. Diagnosed at age 12 2. On D5LR at 125 mL/hr and Humalin drip 3. Replacing potassium with KCL 4. Blood sugars ranging 98-149 on 0.5-2.5 units/hr of insulin 5. Anion gap 9 today 2+ ketones in urine, beta hydroxybutyrate 0.6 (down from 4.3). Low threshold for DKA 3. Supervision of 1. No cared 2. 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 Naga Palmer 3. PNL: O+/?/-/-/HIV NR (collected on this admission) 4. Dispo: continue inpatient monitoring Will discuss with Dr. Gonzales on rounds Merari Naylor 10/09/2018 6:56 AM, MS4 Associated attestation - Jay Ceja MD - 10/09/2018 8:13 AM CDT This note is for the educational benefit of the medical student. Please see resident note for treatment details. Additionally: overall clinical picture improving. Sx are better since admission. Continue to monitor cardiac status Jay Ceja MD 10/09/2018 8:13 AM * Jay Ceja MD - 10/09/2018 6:50 AM CDT R3 Antepartum Progress Note Date: 10/09/2018 Hospital Day: 2 Subjective: Karina Fuchs is a 23 year old at 9w1d weeks gestation. There were no acute overnight events. She reports nausea improved with only 1 episode emesis overnight. She denies vaginal bleeding, loss of fluid, and contractions. She also denies CP, SOB, palpitations, even with exertion Objective: Patient Vitals for the past 24 hrs: Temp Pulse Resp BP SpO2 10/09/18 0430 - (!) 160 - - - 10/09/18 0420 97.6 ??F (36.4 ??C) - 16 121/77 99 % 10/09/18 0120 - 91 16 126/77 99 % 10/09/18 0047 - (!) 150 - - - 10/08/18 2328 98.3 ??F (36.8 ??C) - 18 121/82 98 % 10/08/18 2304 - (!) 150 - - - 10/08/18 2025 98.5 ??F (36.9 ??C) 91 16 (!) 146/101 100 % 10/08/18 1851 - 81 - - - 10/08/18 1632 - - - - 100 % 10/08/18 1631 98.6 ??F (37 ??C) - - 113/68 - 10/08/18 1356 - - 18 118/70 98 % 10/08/18 0813 98.4 ??F (36.9 ??C) - 18 124/84 - Intake/Output Summary (Last 24 hours) at 10/09/18 0708 Last data filed at 10/09/18 0543 Gross per 24 hour Intake 5303.9 ml Output 5800 ml Net -496.1 ml Physical Exam: General: alert, cooperative, no distress Lungs: clear to auscultation bilaterally Heart: regular rate and rhythm Abdomen: gravid, nontender, no palpable contractions Extremities: normal, non-tender bilaterally Labs: Recent Labs Component Name 10/09/18 0522 10/08/18 0613 12/30/17 0545 WBC 8.6 10.3 5.9 HGB 14.2 14.1 10.8* HCT 41.5 40.8 32.4* PLTCOUNT 420* 383 332 Recent Labs Component Name 10/09/18 0522 10/08/18 1657 10/08/18 1142 SODIUM 134* 133* 131* POTASSIUM 4.1 2.8* 3.7 CHLORIDE 99 103 101 CO2 26 22* 17* BUN 2* 3* 5* CREATININE 0.44* 0.46* 0.41* GLUCOSE 124* 89 135* CALCIUM 8.9 8.4 8.4 ALBUMIN 3.6 3.5 3.5 ALKPHOS 69 68 71 ALT 9* 9* 8* AST 12 9 10 TBIL 0.7 0.7 0.8 TPROT 6.1* 5.9* 6.1* EGFR >60 >60 >60 Recent Labs Component Name 10/09/18 0522 12/29/17 0642 12/28/17 0621 PHOS 1.8* 3.5 3.5 Recent Labs Component Name 10/09/18 0522 12/29/17 0642 12/28/17 0621 MAGNESIUM 1.4* 1.8 1.8 Patient Vitals for the past 30 hrs: Glucose Bedside (mg/dL) 10/09/18 0632 116 mg/dL 10/09/18 0525 134 mg/dL 10/09/18 0423 99 mg/dL 10/09/18 0325 121 mg/dL 10/09/18 0233 115 mg/dL 10/09/18 0122 125 mg/dL 10/09/18 0029 107 mg/dL 10/08/18 2324 114 mg/dL 10/08/18 2230 130 mg/dL 10/08/18 2127 128 mg/dL 10/08/18 2027 120 mg/dL 10/08/18 1918 98 mg/dL 10/08/18 1823 94 mg/dL 10/08/18 1728 126 mg/dL 10/08/18 1628 142 mg/dL 10/08/18 1532 174 mg/dL 10/08/18 1425 231 mg/dL 10/08/18 1349 177 mg/dL 10/08/18 1134 149 mg/dL 10/08/18 0803 132 mg/dL 10/08/18 0459 149 mg/dL 10/08/18 0205 177 mg/dL NST/Flor [place]: See separate procedure note MEDICATIONS FOR CURRENT ENCOUNTER: SCHEDULED MEDICATIONS: And Followed by docusate sodium (COLACE) capsule 100 mg, Oral, BID famotidine (PEPCID) tablet 20 mg, Oral, QDAY vitamin with iron tablet 1 tablet, Oral, QDAY scopolamine (TRANSDERM-SCOP) 1 patch, Transdermal, q72h scopolamine patch placement confirmation, Transdermal, BID sodium phosphate 20 mmol in dextrose 5 % 256.7 mL bolus, Intravenous, Once [COMPLETED] lactated ringers IV bolus, Intravenous, Once [COMPLETED] lactated ringers IV bolus, Intravenous, Once [COMPLETED] lactated ringers IV bolus, Intravenous, Once [COMPLETED] potassium chloride 20 mEq in 100 mL SW bolus, Intravenous, Once [COMPLETED] potassium chloride 20 mEq in 100 mL SW bolus, Intravenous, Once ?? [COMPLETED] potassium chloride 20 mEq in 100 mL SW bolus, Intravenous, q6h CONTINUOUS MEDICATIONS: dextrose 5% and lactated ringers solution, Intravenous, Continuous ?? insulin regular human (humuLIN R; novoLIN R) 100 Units in 0.9% NaCl 100 mL OB infusion, Intravenous, Continuous PRN MEDICATIONS: acetaminophen (TYLENOL) tablet 650 mg, Oral, q6h PRN bisacodyl (DULCOLAX) suppository 10 mg, Rectal, QDAY PRN dextrose IV 12.5 g, Intravenous, PRN glucagon (GLUCAGEN) injection 1 mg, Intramuscular, PRN lidocaine-prilocaine (EMLA) cream, Topical, Once PRN metoclopramide (REGLAN) tablet 10 mg, Oral, q6h PRN prochlorperazine (COMPAZINE) tablet 5 mg, Oral, q8h PRN promethazine (PHENERGAN) suppository 25 mg, Rectal, q6h PRN simethicone (MYLICON) chew tablet 160 mg, Oral, 4X/day - PC & NIGHTLY PRN ?? trimethobenzamide (TIGAN) injection 200 mg, Intramuscular, q6h PRN Assessment/Plan: 23 year old at 9w1d, with T1DM, possible borderline DKA - lantus 10u QHS and novolog 1:8 I:C with meals, now on insulin GTT with good control - good glycemic control - volume status repleted - electrolyte abnormalities as noted above, replacement as indicated - TSH wnl, baseline labs wnl, consider 24 hr urine, serial growths, testing, and ASA for pre-eclampsia risk reduction Sinus arrythmia - EKG with sinus arrythmia - continuous telemetry with occasional tachycardia to 140-150 bpm yumi with ambulation to BR - patient continues to be asymptomatic - continue tele, replace lytes, consider cardiology consult/echo Nausea and vomiting in early - continues to refuse antiemetics per RN overnight, no episodes of emesis - reports improvement in sx this AM, no vomiting at all per RN, just some ptyalism History of CD - G1 for AODes - consider TOLAC vs rCS counseling in future visits Supervision of - dating by LMP consistent with BSUS GS measurements per verbal from Dr Naga Palmer, formal needs US assessment - PNL collected Dispo: continue inpatient care Jay Ceja MD 10/09/2018 6:50 AM Associated attestation - Tuan Gonzales MD - 10/09/2018 9:38 AM CDT MFM Attending I have seen, evaluated and examined the patient. I agree with the above assessment, exams and plans. Exam: BP 118/75 Pulse 85 Temp 98.4 ??F (36.9 ??C) Resp 18 Wt 134 lb 6.4 oz (61 kg) SpO2 100% BMI 25.05 kg/m2 Gen - NAD, sad/teary, wants to be home tomorrow for child's bd Abd - NT Ext - NT, no edema I have the following to add to the plan: Still not taking in PO despite not having emesis. States does not feel like has an appetite. While we would definitely want to assist her in getting home by tomorrow for her child's bd it is not really feasible if she is not taking in any PO. Plus she still is on the insulin gtt currently. Would like to see her attempt food. If tolerated then could transition to SQ insulin. Also need to watch maternal HR today. Had sporadic tachycardia. If recurs will perform tele. No concerns now of ongoing acidosis Tuan Gonzales MD MFM * Amanda Hines, RN - 10/09/2018 6:13 AM CDT Shift Summary: Karina Fuchs rested intermittently throughout the night. Emesis x2 of green bile, tolerated about 50 mL of water overnight, she is refusing antiemetics. IVF, K+ replacements and insulin gtt per orders. Karina Fuchs remains on tele #17 and sinus arrhythmia noted per monitor techs.Of note, patients heart rate elevates to 150-160 with standing and ambulation. MDs aware. BSC now at bedside and patient verbalized understanding to notify staff with assistance and fall risk status.Currently resting in bed with call light in reach. Will continue to monitor. * Amanda Hines RN - 10/09/2018 2:46 AM CDT Problem: Alteration of Metabolism of Carb/Prot/Fat/Lytes Alteration in metabolism of carbohydrates, proteins, fats, and electrolytes related to diabetes andpregnancy. Goal: Blood Glucose Levels Remain WDL for this Patient. Blood glucose levels remain within defined limits for this individual. Outcome: Ongoing Karina Fuchs remains on an insulin gtt for glycemic control. Goal: Maternal Hypoglycemia/Ketoacidosis Recognized/Managed Signs and symptoms of maternal hypoglycemia and ketoacidosis are recognized and treated promptly and appropriately. Outcome: Ongoing Karina Fuchs denies any S&S of hyper or hypoglycemia. She is experience tachycardia with ambulation. MDs aware and updated. * Amanda Hines RN - 10/09/2018 1:00 AM CDT 10/09/18 0050 Clinician Communication/Critical Test Notification Reason: Condition Update Name of Clinician Notified: [facility] Role: OB Resident Notification Method: Called/Phoned Action No new orders received-Care to Continue Comments: Discussed w/MD that HR elevates into 150-160s per MT, pt denies any S&S when ambulating to restroom, s/p 40 of K+ replace, labs in am, will obtain BSC * Kirsten Thomas RN - 10/08/2018 8:09 PM CDT Shift Summary: VS WNL per doc flowsheet; Ms. Fuchs reports that nausea is improved from yesterday; she states that nausea is mild, no vomitting today; appetite continues to be poor; has eaten a totalof 1 saltine cracker and 1 container of orange sherbert; LR and potassium boluses in progress; insulin drip titrated to blood sugar per hour; telemetry applied and ongoing; has rested mostly comfortably today; bedside report given, questions answered to Amnada Peoples RN. * Suni Maldonado RN - 10/08/2018 6:49 PM CDT Obtained order for telemetry 10/08/18 5110 Clinician Communication/Critical Test Notification Reason: Condition Update (ekg r/t potassium protocol noted arrthymias) Name of Clinician Notified: (Dr Ceja) Role: OB Resident Notification Method: In Person Action Orders Received * Lauren Mckoy MD - 10/08/2018 5:30 PM CDT R4 CNP Update Note Evening labs reviewed: beta hydroxybutyrate is lower (0.4) suggesting starvation ketosis improved on D5LR, CO2 on CMP is improved (higher at 22), K is low (likely truer to total body K depletion), and gap is 8. Will continue D5LR, replete K, and repeat CMP in AM with serum ketones as needed related to glycemic control. Primary RN and attending updated. Lauren Mckoy MD 10/08/2018 5:30 PM * Kirsten Thomas RN - 10/08/2018 1:52 PM CDT 10/08/18 1350 10/08/18 1351 Clinician Communication/Critical Test Notification Reason: Condition Update -- Name of Clinician Notified: Dr. Ean Mckoy Role: OB Resident OB Resident Notification Method: Called/Phoned Provider Initiated Contact Action No new orders received-Care to Continue Orders Received Comments: Notified Dr. Mckoy that LR bolus complete; d5lr at 125 is started; current blood sugar is 177; unable to eat d/t low appetite thus no insulin delivery at this time; Dr. Mckoy instructs that will consult with attending and call back with further orders. Dr. Mckoy instructs that is placing orders for insulin drip now. * Kirsten Thomas RN - 10/08/2018 1:19 PM CDT 10/08/18 1318 Clinician Communication/Critical Test Notification Reason: Lab Results Name of Clinician Notified: Dr. Mckoy Role: OB Resident Notification Method: Called/Phoned Action No new orders received-Care to Continue Comments: Notified Dr. Mckoy that cmp is finaled; also betahydroxybuterate is 4.6; Dr. Mckoy instructs thank you for update; will consult with Dr. Gonzales and call back with further orders. * Kirsten Thomas RN - 10/08/2018 11:34 AM CDT Blood sugars from 0500 this morning 149, 132, 149; Ms. Fuchs encouraged to eat something; offered saltines or tyrese crackers; refuses to eat, stating not hungry; states that nausea is better; refused ordered iv and intramuscular antiemetics; 10mg reglan po and pepcid po administered this morning per doctor order. * Jay Ceja MD - 10/08/2018 8:33 AM CDT R3 Antepartum Progress Note Date: 10/08/2018 Hospital Day: 1 Subjective: Karina Fuchs is a 23 year old at 9w0d weeks gestation. There were no acute overnight events. She reports nausea improved. She denies vaginal bleeding, loss of fluid, and contractions. Objective: Patient Vitals for the past 24 hrs: Temp Resp BP 10/08/18 0205 98 ??F (36.7 ??C) 20 137/85 10/07/18 2046 98.2 ??F (36.8 ??C) 16 136/80 Intake/Output Summary (Last 24 hours) at 10/08/18 0833 Last data filed at 10/08/18 0817 Gross per 24 hour Intake 250 ml Output 1050 ml Net -800 ml Physical Exam: General: alert, cooperative, no distress Lungs: clear to auscultation bilaterally Heart: regular rate and rhythm Abdomen: gravid, nontender, no palpable contractions Extremities: normal, non-tender bilaterally Labs: Recent Labs Component Name 10/08/18 0613 12/30/17 0545 12/29/17 0642 WBC 10.3 5.9 9.1 HGB 14.1 10.8* 13.3 HCT 40.8 32.4* 40.1 PLTCOUNT 383 332 432* Recent Labs Component Name 10/07/18 2053 12/30/17 0545 12/29/17 1451 12/25/17 1958 12/10/17 0753 12/09/17 2107 11/28/17 2229 SODIUM 133* - - - - 141 136 - - POTASSIUM 4.3 3.7 3.9 - 4.0 3.2* 3.6 - 2.9* CHLORIDE 107 - - - - 107 109* - - CO2 12* 25 20* - 13* 24 19* - 15* BUN 5* 5* 9 - 17 3* 4* - 10 CREATININE 0.58 0.4* 0.4* - 0.5* 0.31* 0.46* - 0.4* GLUCOSE 165* - - - - 69* 143* - - CALCIUM 8.4 8.4 8.7 - 10.0 7.5* 7.2* - 8.4 ALBUMIN 3.5 - - - - 2.8* 2.8* - - ALKPHOS 82 - - - 94 - - - 66 ALT 8* - - - 10 - - - 6 AST 15 - - - 12 - - - 9 TBIL 0.7 - - - - - - - - TPROT 6.4 - - - - - - - - EGFR >60 >60 >60 - >60 >60 >60 - >60 - = values in this interval not displayed. Patient Vitals for the past 30 hrs: Glucose Bedside (mg/dL) 10/08/18 0803 132 mg/dL 10/08/18 0459 149 mg/dL 10/08/18 0205 177 mg/dL 10/07/18 2258 203 mg/dL 10/07/18 1945 112 mg/dL NST/[place]: See separate procedure note MEDICATIONS FOR CURRENT ENCOUNTER: ?? SCHEDULED MEDICATIONS: ?? And ?? docusate sodium (COLACE) capsule 100 mg, Oral, BID ?? famotidine (PEPCID) injection 20 mg, Intravenous, BID ?? insulin aspart (NovoLOG) pen 0-20 Units, Subcutaneous, TID WC ?? insulin glargine (LANTUS) pen 10 Units, Subcutaneous, AT BEDTIME ?? metoclopramide (REGLAN) injection 10 mg, Intravenous, Once ?? ondansetron (ZOFRAN) injection 4 mg, Intravenous, q6h ?? vitamin with iron tablet 1 tablet, Oral, QDAY ?? promethazine (PHENERGAN) suppository 25 mg, Rectal, q8h ?? scopolamine (TRANSDERM-SCOP) 1 patch, Transdermal, q72h ?? scopolamine patch placement confirmation, Transdermal, BID ?? trimethobenzamide (TIGAN) injection 200 mg, Intramuscular, q6h ?? [COMPLETED] lactated ringers IV bolus, Intravenous, Once ?? CONTINUOUS MEDICATIONS: ?? lactated ringers infusion, Intravenous, Continuous ?? PRN MEDICATIONS: ?? acetaminophen (TYLENOL) tablet 650 mg, Oral, q6h PRN ?? bisacodyl (DULCOLAX) suppository 10 mg, Rectal, QDAY PRN ?? lidocaine-prilocaine (EMLA) cream, Topical, Once PRN ?? simethicone (MYLICON) chew tablet 160 mg, Oral, 4X/day - PC & NIGHTLY PRN Assessment/Plan: 23 year old at 9w0d, with Nausea and vomiting in early vs malingering - continues to refuse antiemetics per RN overnight, no episodes of emesis - reports improvement in sx this AM, no vomiting at all per RN, just some ptyalism - last gap 14 yesterday, 2+ ketones in urine, overall low concern for DKA but will recheck labs - plan: transition off IV to PRN PO and MI T1DM - lantus 10u QHS and novolog 1:8 I:C with meals - good control overnight, continue to monitor during the day - A1C 10.3, suspect BG at home are not consistent with inhouse BG, either due to non-compliance or different environment - TSH wnl, baseline labs wnl, consider 24 hr urine, serial growths, testing, and ASA for pre-eclampsia risk reduction History of CD - G1 for AODes - consider TOLAC vs rCS counseling in future visits Supervision of - dating by LMP consistent with BSUS GS measurements per verbal from Dr Naga Palmer, formal needs US assessment - PNL collected Dispo: as patient is asymptomatic this morning, monitor BG during day, and if stable can be candidate for DC later Jay Ceja MD 10/08/2018 8:33 AM * Marissa Brooks RN - 10/08/2018 6:52 AM CDT Shift summary: VSS. IVF infusing. Refusing antiemetics. Remains on accu checks and insulin. Will assess. * Marissa Brooks RN - 10/08/2018 6:52 AM CDT Problem: Alteration of Metabolism of Carb/Prot/Fat/Lytes Alteration in metabolism of carbohydrates, proteins, fats, and electrolytes related to diabetes andpregnancy. Goal: Blood Glucose Levels Remain WDL for this Patient. Blood glucose levels remain within defined limits for this individual. Outcome: Ongoing Stable blood sugars overnight. Goal: Maternal Hypoglycemia/Ketoacidosis Recognized/Managed Signs and symptoms of maternal hypoglycemia and ketoacidosis are recognized and treated promptly and appropriately. Outcome: Ongoing Reviewed signs of hypoglycemia and to report. documented in this encounter H&P Notes * Cody Palmer MD - 10/07/2018 7:53 PM CDT PGY-4 Obstetric H&P CC: I keep throwing up HPI: 23 year old at 8w6d gestation Dated by: LMP Estimated Date of Delivery: None noted. care: is not established this Patient's is complicated by: Patient Active Problem List Diagnosis Date Noted ??? Diabetic ketoacidosis without coma associated with type 1 diabetes mellitus 10/07/2018 Priority: Not Prioritized ??? Type 1 diabetes mellitus with ketoacidosis without coma 11/28/2017 Priority: Not Prioritized Currently, patient presents with nausea/vomiting since 10/04. Cannot identify alleviating/aggravatingfactors. Was hospitalized since 10/04 in [place] without relief. Similar experience to her previous . BG 115 on arrival here. Patient reports she was on an insulin drip at the other hospital. Normally takes 10units of lantus before bed and uses I:C ratio 1:8 with all meals. Thinks her last A1c was 9.Last eye exam was in January, says there were no problems. No sick contacts at home. No fevers/chills, denies WALTERS/runny nose/cough/body aches. Denies dysuria, flank pain. No constipation/diarrhea. Denies Ctx. Denies LOF. Denies VB. Movement n/a Review of Symptoms: No WALTERS/vision change/RUQ pain No SOB/CP/CT No nausea/ vomiting/ fevers/ chills/ diarrhea No dysuria/ hematuria/ urinary urgency/ irritation Obstetrical History: OB History Para Term AB Living 2 1 1 1 SAB TAB Ectopic Multiple Live Births 1 # Outcome Date GA Lbr Chuck/2nd Weight Sex Delivery Anes PTL Lv 2 Current 1 Term 10/10/16 37w0d F N PRADEEP Complications: Type 1 diabetes mellitus Gynecologic History: Abnormal pap smears: Denies Cervical procedures: Denies STDs: Denies history of gonorrhea, chlamydia, trichomonas, herpes, HIV, syphilis Medical History: Past Medical History: Diagnosis Date ??? Diabetes Diagnosed at age 12 ??? Diabetes mellitus in ??? DKA (diabetic ketoacidoses) ??? IUD contraception She denies history of hypertension, asthma or bleeding disorders. Psych History: Depression: denies Anxiety: denies Bipolar disorder: denies Schizophrenia: denies Suicide attempts: denies Abuse: denies Surgeries: Past Surgical History: Procedure Laterality Date ??? Section ??? Tonsillectomy ??? Tonsillectomy 2010 Curent Medications: Prior to Admission medications Medication Sig Start Date End Date Taking? Authorizing Provider LEIA BENTLEY (BASAGLAR) pen Inject 10 Units subcutaneously at bedtime 05/09/18 Pawan Ram MD blood glucose (TRUE METRIX BLOOD GLUCOSE TEST) test strip Use 1 strip 3 times daily 02/07/18 Pawan Ram MD insulin lispro (HUMALOG) 100 UNIT/ML vial Inject 6 Units subcutaneously 3 times daily before meals Pt specific sliding scale based off diet 02/07/18 Pawan Ram MD insulin pen needle (NOVOFINE 31) 31G X 5 MM needle 1 Each once daily 03/02/18 Pawan Ram MD insulin syringe-needle (BD ULTRAFINE II) 31G X 5/16 0.3 ML syringe 1 Each by Injection route 3 times daily 02/07/18 Pawan Ram MD lancets Use 1 Each 3 times daily 02/07/18 Pawan Ram MD omeprazole (PRILOSEC) 40 MG capsule Take 1 capsule by mouth once daily 12/30/17 Peter Bryan MD sertraline (ZOLOFT) 50 MG tablet Take 1 tablet by mouth once daily 12/31/17 Peter Bryan MD Allergies: No Known Allergies Social History: Social History Smoking status: Never Smoker Smokeless status: Never Used Alcohol use: Yes Comment: occasional Drug use: No Sexual activity: Not Currently Family History: Family History Problem Relation Age of Onset ??? Diabetes - Type 1 Maternal Grandmother No history of infants born with defects No history of family members with bleeding disorders or h/o blood clots No history of breast, ovarian, or uterine cancer Objective: There were no vitals filed for this visit. There is no height or weight on file to calculate BMI. Physical Exam: General: alert, cooperative, no distress, appears nauseated HEENT: normocephalic/atraumatic, normal ROMno cervical lymphadenopathy Lungs: normal respiratory rate, non-labored breathing, CTAB Heart: rapid rate, no m/r/g Abdomen: soft without mass, non-tender, with normal bowel sounds Extremities: normal, non-tender bilaterally. Edema absent Neuro: CN2-12 grossly intact, no focal neurological deficits, sensation/strength symmetrical x4, prepatellar reflexes +1 symmetrically bilaterally Transvaginal ultrasound: Gestational sac with yolk sac visualized, 2.5mm Current Lab Review: No results found for this visit on 10/07/18. Assessment/Plan: 23 year old @ Unknown 1. T1DM 1. Dx at age 12; managed with lantus 10u QHS and novolog 1:8 I:C with meals 2. A1c pending; per patient most recent was around [address] Ram (Endocrinology in [facility]) with last A1c 9.5 on 12/09/17 4. TSH/reflex T4 drawn, pending 5. Blood glucose 115 on admission; patient previously on insulin drip prior to transfer 2. Nausea/vomiting 1. Per patient, similar to prior ; DKA reported by transferring physician, however, no papers accompanied patient 2. Urinalysis w/reflex to culture sent, pending 3. CMP wnl 4. IV fluid re-hydration ordered 5. Patient refuses IM tigan, phenergan MI, and scopolamine patch; zofran and reglan IV accepted while grandmother present (see below) 3. Supervision of 1. PNC not yet established 2. Dated by LMP 3. PNL drawn today 4. H/o prior CD 1. In G1 for likely arrest of descent 5. Questionable malingering 1. Patient refusing anti-emetics when her grandmother not in room, including scopolamine patch; accepted IV zofran and reglan while grandmother present 2. Per RN, report of same behavior given by the transferring RN at time of verbal transfer report 3. Continue to monitor patient acceptance/refusal patterns 6. FWB previable 7. Dispo: inpatient management of the above Cody Palmer MD Associated attestation - Tuan Gonzales MD - 10/08/2018 12:06 PM CDT M Attending I have seen, evaluated and examined the patient with Dr. Barrera. I agree with the above assessment, exams and plans. Exam: BP 124/84 Temp 98.4 ??F (36.9 ??C) Resp 18 Wt 133 lb 4.8 oz (60.5 kg) BMI 24.85 kg/m2 Gen - NAD Abd - NT Ext - NT, no edema FHTs - BSUS yesterday shows GS and YS I have the following to add to the plan: Plan to assess HCT today and in a couple day. Formal scan in 2 days Assess further labs today Blood gas Attempt PO Cont IVF, watch ketones down MD ERNESTINA Carrasco documented in this encounter Plan of Treatment Not on file documented as of this encounter Procedures Procedure Name Priority Date/Time Associated Diagnosis Comments IMAGING/RADIOLOGY/XRAY RESULTS ORDER 10/10/2018 8:05 PM CDT CARDIAC RHYTHM STRIP ORDER 10/10/2018 11:22 AM CDT GLUCOSE - POINT OF CARE Routine 10/10/19 3:43 PM CDT GLUCOSE - POINT OF CARE Routine 10/10/19 2:39 PM CDT GLUCOSE - POINT OF CARE Routine 10/10/19 1:51 PM CDT GLUCOSE - POINT OF CARE Routine 10/10/19 12:38 PM CDT KETONES QUALITATIVE URINE AUTO Timed 10/09/2018 11:50 AM CDT 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, antepartum (HCC) GLUCOSE - POINT OF CARE Routine 10/10/19 11:49 AM CDT GLUCOSE - POINT OF CARE Routine 10/10/19 10:34 AM CDT GLUCOSE - POINT OF CARE Routine 10/10/19 9:55 AM CDT GLUCOSE - POINT OF CARE Routine 10/10/19 8:48 AM CDT GLUCOSE - POINT OF CARE Routine 10/10/19 7:27 AM CDT GLUCOSE - POINT OF CARE Routine 10/10/19 6:31 AM CDT GLUCOSE - POINT OF CARE Routine 10/10/19 5:25 AM CDT CBC W AUTO DIFFERENTIAL AM Draw 10/10/19 5:22 AM CDT COMPREHENSIVE METABOLIC PANEL AM Draw 10/09/2018 5:22 AM CDT PHOSPHORUS BLOOD AM Draw 10/09/2018 5:22 AM CDT MAGNESIUM BLOOD AM Draw 10/09/2018 5:22 AM CDT GLUCOSE - POINT OF CARE Routine 10/10/19 4:23 AM CDT GLUCOSE - POINT OF CARE Routine 10/10/19 3:26 AM CDT GLUCOSE - POINT OF CARE Routine 10/10/19 2:36 AM CDT GLUCOSE - POINT OF CARE Routine 10/10/19 1:22 AM CDT GLUCOSE - POINT OF CARE Routine 10/10/19 12:31 AM CDT GLUCOSE - POINT OF CARE Routine 10/09/19 11:26 PM CDT GLUCOSE - POINT OF CARE Routine 10/09/19 10:29 PM CDT GLUCOSE - POINT OF CARE Routine 10/09/19 9:27 PM CDT KETONES QUALITATIVE URINE AUTO Routine 10/08/2018 8:32 PM CDT GLUCOSE - POINT OF CARE Routine 10/09/19 8:29 PM CDT GLUCOSE - POINT OF CARE Routine 10/09/19 7:18 PM CDT EKG 12-LEAD STAT 10/08/2018 6:28 PM CDT Diabetic ketoacidosis without coma associated with type 1 diabetes mellitus (HCC) GLUCOSE - POINT OF CARE Routine 10/09/19 19 6:23 PM CDT GLUCOSE - POINT OF CARE Routine 10/09/19 19 5:28 PM CDT HYDROXYBUTYRATE BETA Routine 10/08/2018 4:57 PM CDT COMPREHENSIVE METABOLIC PANEL Timed 10/08/2018 4:57 PM CDT GLUCOSE - POINT OF CARE Routine 10/09/19 4:28 PM CDT GLUCOSE - POINT OF CARE Routine 10/09/19 19 3:32 PM CDT GLUCOSE - POINT OF CARE Routine 10/09/19 19 2:20 PM CDT GLUCOSE - POINT OF CARE Routine 10/09/19 19 1:48 PM CDT HYDROXYBUTYRATE BETA STAT 10/08/2018 12:37 PM CDT BLOOD GASES ARTERIAL STAT 10/08/2018 12:23 PM CDT COMPREHENSIVE METABOLIC PANEL LUPE 10/08/2018 11:42 AM CDT HCG BETA BLOOD QUANTITATIVE Routine 10/08/2018 11:42 AM CDT GLUCOSE - POINT OF CARE Routine 10/09/19 19 11:33 AM CDT PROTEIN URINE QUALITATIVE AUTO Routine 10/08/2018 11:20 AM CDT GLUCOSE URINE QUALITATIVE AUTO Routine 10/08/2018 11:20 AM CDT KETONES QUALITATIVE URINE AUTO Routine 10/08/2018 11:20 AM CDT GLUCOSE - POINT OF CARE Routine 10/09/19 8:04 AM CDT CBC W AUTO DIFFERENTIAL Routine 10/09/19 6:13 AM CDT BLOOD TYPE VERIFICATION Routine 10/09/19 6:05 AM CDT GLUCOSE - POINT OF CARE Routine 10/09/19 4:56 AM CDT GLUCOSE - POINT OF CARE Routine 10/09/19 2:04 AM CDT HEMOGLOBIN A1C LUPE 10/08/2018 12:52 AM CDT Type 1 diabetes mellitus with ketoacidosis without coma (HCC) 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, antepartum (HCC) TYPE + SCREEN PANEL STAT 10/08/2018 1 2:52 AM CDT Type 1 diabetes mellitus with ketoacidosis without coma (HCC) 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, antepartum (HCC) GLUCOSE - POINT OF CARE Routine 10/08/19 10:57 PM CDT URINALYSIS REFLEX MICROSCOPIC REFLEX CULTURE STAT 10/07/2018 10:39 PM CDT Type 1 diabetes mellitus with ketoacidosis without coma (HCC) 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, antepartum (HCC) URINE DRUG SCREEN IMMUNOASSAY STAT 10/07/2018 10:38 PM CDT Type 1 diabetes mellitus with ketoacidosis without coma (HCC) 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, antepartum (HCC) SYPHILIS ANTIBODY CASCADING REFLEX STAT 10/07/2018 8:53 PM CDT Type 1 diabetes mellitus with ketoacidosis without coma (HCC) 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, antepartum (HCC) OBSTETRIC PANEL (ARCHANA) STAT 10/07/2018 8:53 PM CDT Type 1 diabetes mellitus with ketoacidosis without coma (HCC) 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, antepartum (HCC) HIV-1 HIV-2 ANTIBODY + HIV P24 AG PANEL Add on 10/07/2018 8:53 PM CDT TSH REFLEX FREE T4 Routine 10/07/2018 8: 53 PM CDT Type 1 diabetes mellitus with ketoacidosis without coma (HCC) 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, antepartum (HCC) RUBELLA ANTIBODY IGG STAT 10/07/2018 8:53 PM CDT Type 1 diabetes mellitus with ketoacidosis without coma (HCC) 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, antepartum (HCC) COMPREHENSIVE METABOLIC PANEL STAT 10/07/2018 8:53 PM CDT Type 1 diabetes mellitus with ketoacidosis without coma (HCC) 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, antepartum (HCC) HEPATITIS B SURFACE ANTIGEN W RFLX CONFIRMATION STAT 10/07/2018 8:53 PM CDT Type 1 diabetes mellitus with ketoacidosis without coma (HCC) 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, antepartum (HCC) GLUCOSE - POINT OF CARE Routine 10/08/19 19 7:48 PM CDT documented in this encounter Results * IMAGING/RADIOLOGY/XRAY RESULTS ORDER (10/10/2018 8:05 PM CDT) Anatomical Region Laterality Modality Other Narrative 10/10/2018 8:05 PM CDT Ordered by an unspecified provider. Scanned Document IMAGING * CARDIAC RHYTHM STRIP ORDER (10/10/2018 11:22 AM CDT) Narrative 10/10/2018 11:22 AM CDT Ordered by an unspecified provider. Scanned Document CARDIAC SERVICES ORD ERABLES * (ABNORMAL) GLUCOSE - POINT OF CARE (10/09/2018 3:43 PM CDT) Glucose WB/POC 171(H) 70 - 106 mg/dL 10/09/2018 3:55 PM CDT [facility] Specimen Type Arterial/C apillary 10/09/2018 3:55 PM CDT [facility] Blood BLOOD SPECIMEN / Unknown 10/09/2018 3:43 PM CDT 10/09/2018 3:55 PM CDT Franchesca Orellana MD LAB - POINT OF CARE ORDERABLES Performing Organization Address City/[facility]/ZIP Co de Phone Number [facility] [address] [place] [phone] * GLUCOSE - POINT OF CARE (10/09/2018 2:39 PM CDT) Glucose WB/POC 96 70 - 106 mg/dL 10/09/2018 2:48 PM CDT [facility] Specimen Type Arterial/C apillary 10/09/2018 2:48 PM CDT [facility] Blood BLOOD SPECIMEN / Unknown 10/09/2018 2:39 PM CDT 10/09/2018 2:48 PM CDT Franchesca Orellana MD LAB - POINT OF CARE ORDERABLES Performing Organization Address [facility] Co de Phone Number [facility] [address] [place] [phone] * (ABNORMAL) GLUCOSE - POINT OF CARE (10/09/2018 1:51 PM CDT) Glucose WB/POC 122(H) 70 - 106 mg/dL 10/09/2018 2:00 PM CDT [facility] Specimen Type Arterial/C apillary 10/09/2018 2:00 PM CDT [facility] Blood BLOOD SPECIMEN / Unknown 10/09/2018 1:51 PM CDT 10/09/2018 2:00 PM CDT Franchesca Orellana MD LAB - POINT OF CARE ORDERABLES Performing Organization Address City/[facility]/ZIP Co de Phone Number [facility] [address] [place] [phone] * (ABNORMAL) GLUCOSE - POINT OF CARE (10/09/2018 12:38 PM CDT) Glucose WB/POC 151(H) 70 - 106 mg/dL 10/09/2018 1:43 PM CDT [facility] Specimen Type Arterial/C apillary 10/09/2018 1:43 PM CDT [facility] Blood BLOOD SPECIMEN / Unknown 10/09/2018 12:38 PM CDT 10/09/2018 1:43 PM CDT Franchesca Orellana MD LAB - POINT OF CARE ORDERABLES Performing Organization Address City/[facility]/ZIP Co de Phone Number [facility] [address] [place], [place] [phone] * (ABNORMAL) KETONES QUALITATIVE URINE AUTO (10/09/2018 11:50 AM CDT) Ketone UA 2+(A) Negative 10/09/2018 12:23 PM CDT [facility] Urine URINE / Unknown Collection / Unknown 10/09/2018 11:50 AM CDT 10/09/2018 12:17 PM CDT Narrative [facility] - 10/09/2018 12:23 PM CDT Lauren Mckoy MD LAB - URINALYSIS ORD ERABLES Performing Organization Address [facility] Co de Phone Number [facility] [address] [place] [phone] * (ABNORMAL) GLUCOSE - POINT OF CARE (10/09/2018 11:49 AM CDT) Glucose WB/POC 178(H) 70 - 106 mg/dL 10/09/2018 12:05 PM CDT [facility] Specimen Type Arterial/C apillary 10/09/2018 12:05 PM CDT [facility] Blood BLOOD SPECIMEN / Unknown 10/09/2018 11:49 AM CDT 10/09/2018 12:05 PM CDT Franchesca Orellana MD LAB - POINT OF CARE ORDERABLES Performing Organization Address City/[facility]/ZIP Co de Phone Number [facility] [address] [place] [phone] * (ABNORMAL) GLUCOSE - POINT OF CARE (10/09/2018 10:34 AM CDT) Glucose WB/POC 211(H) 70 - 106 mg/dL 10/09/2018 11:03 AM CDT [facility] Specimen Type Venous 10/09/2018 11:03 AM CDT [facility] Blood BLOOD SPECIMEN / Unknown 10/09/2018 10:34 AM CDT 10/09/2018 11:03 AM CDT Franchesca Orellana MD LAB - POINT OF CARE ORDERABLES [facility] [address] [place] [phone] * (ABNORMAL) GLUCOSE - POINT OF CARE (10/09/2018 9:55 AM CDT) Glucose WB/POC 189(H) 70 - 106 mg/dL 10/09/2018 11:03 AM CDT [facility] Specimen Type Venous 10/09/2018 11:03 AM CDT [facility] Blood BLOOD SPECIMEN / Unknown 10/09/2018 9:55 AM CDT 10/09/2018 11:03 AM CDT Franchesca Orellana MD LAB - POINT OF CARE ORDERABLES [facility] [address] [place] [phone] * (ABNORMAL) GLUCOSE - POINT OF CARE (10/09/2018 8:48 AM CDT) Glucose WB/POC 131(H) 70 - 106 mg/dL 10/09/2018 11:03 AM CDT [facility] Specimen Type Venous 10/09/2018 11:03 AM CDT [facility] Blood BLOOD SPECIMEN / Unknown 10/09/2018 8:48 AM CDT 10/09/2018 11:03 AM CDT Franchesca Orellana MD LAB - POINT OF CARE ORDERABLES Performing Organization Address [facility]/ZIP Co de Phone Number [facility] [address] [place] [phone] * (ABNORMAL) GLUCOSE - POINT OF CARE (10/09/2018 7:27 AM CDT) Glucose WB/POC 115(H) 70 - 106 mg/dL 10/09/2018 7:49 AM CDT [facility] Specimen Type Venous 10/09/2018 7:49 AM CDT [facility] Blood BLOOD SPECIMEN / Unknown 10/09/2018 7:27 AM CDT 10/09/2018 7:49 AM CDT Franchesca Orellana MD LAB - POINT OF CARE ORDERABLES Performing Organization Address [facility] Co de Phone Number [facility] [address] [place], [place] [phone] * (ABNORMAL) GLUCOSE - POINT OF CARE (10/09/2018 6:31 AM CDT) Glucose WB/POC 116(H) 70 - 106 mg/dL 10/09/2018 6:42 AM CDT [facility] Specimen Type Arterial/C apillary 10/09/2018 6:42 AM CDT [facility] Blood BLOOD SPECIMEN / Unknown 10/09/2018 6:31 AM CDT 10/09/2018 6:42 AM CDT Narrative [facility] - 10/09/2018 6:42 AM CDT (3) Treated per Protocol Franchesca Orellana MD LAB - POINT OF CARE ORDERABLES Performing Organization Address [facility]/ZIP Co de Phone Number [facility] [address] [place] [phone] * (ABNORMAL) GLUCOSE - POINT OF CARE (10/09/2018 5:25 AM CDT) Glucose WB/POC 134(H) 70 - 106 mg/dL 10/09/2018 5:40 AM CDT [facility] Specimen Type Arterial/C apillary 10/09/2018 5:40 AM CDT [facility] Blood BLOOD SPECIMEN / Unknown 10/09/2018 5:25 AM CDT 10/09/2018 5:40 AM CDT Franchesca Orellana MD LAB - POINT OF CARE ORDERABLES Performing Organization Address [facility] Co de Phone Number [facility] [address] [place], [place] [phone] * (ABNORMAL) PHOSPHORUS BLOOD (10/09/2018 5:22 AM CDT) Phosphorus 1.8(L) 2.3 - 4.7 mg/dL 10/09/2018 6:04 AM CDT [facility] Blood BLOOD SPECIMEN / Unknown Lab Venipuncture / Unknown 10/09/2018 5:22 AM CDT 10/09/2018 5:28 AM CDT Jay Ceja MD LAB - CHEMISTRY HANDY KONG Performing Organization Address [facility] Co de Phone Number [facility] [address] [place], [place] [phone] * (ABNORMAL) MAGNESIUM BLOOD (10/09/2018 5:22 AM CDT) Magnesium 1.4(L) 1.6 - 2.6 mg/dL 10/09/2018 6:04 AM CDT [facility] Blood BLOOD SPECIMEN / Unknown Lab Venipuncture / Unknown 10/09/2018 5:22 AM CDT 10/09/2018 5:28 AM CDT Jay Ceja MD LAB - CHEMISTRY HANDY KONG Performing Organization Address [facility] Co de Phone Number [facility] [address] [place] [phone] * (ABNORMAL) CBC W AUTO DIFFERENTIAL (10/09/2018 5:22 AM CDT) WBC 8.6 4.4 - 10.7 x10E9/L 10/09/2018 5:45 AM CDT [facility] WBC Corrected x10E9/L 10/09/2018 5:45 AM CDT [facility] RBC 5.15 3.80 - 5.20 x10E12/L 10/09/2018 5:45 AM CDT [facility] Hemoglobin 14.2 12.0 - 15.6 gm/dL 10/09/2018 5:45 [facility] Hematocrit 41.5 35.9 - 45.5 % 10/09/2018 5:45 [facility] MCV 80.6(L) 80.7 - 98.3 fl 10/09/2018 5:45 AM [facility] MCH 27.6 26.7 - 34.0 pg 10/09/2018 5:45 AM [facility] MCHC 34.2 30.8 - 35.9 gm/dL 10/09/2018 5:45 AM [facility] Platelet Count 420(H) 153 - 416 x10E9/L 10/09/2018 5:45 AM [facility] RDW-CV 14.2 12.1 - 14.9 % 10/09/2018 5:45 AM [facility] MPV 8.7(L) 9.4 - 12.9 fl 10/09/2018 5:45 AM [facility] Neutrophils % 51.3 44.0 - 73.0 % 10/09/2018 5:45 AM [facility] Lymphocytes % 32.5 20.0 - 43.0 % 10/09/2018 5:45 AM [facility] Monocytes % 13.8(H) 5.0 - 13.0 % 10/09/2018 5:45 AM [facility] Eosinophils % 0.1 0.0 - 6.0 % 10/09/2018 5:45 AM CDT [facility] Basophils % 0.7 0.0 - 2.0 % 10/09/2018 5:45 AM CDT [facility] Immature Granulocytes 1.6(H) 0 - 1 % 10/09/2018 5:45 AM [facility] Neutrophil Absolute 4.43 2.01 - 7.14 x10E9/L 10/09/2018 5:45 AM CDT [facility] Lymphocytes Absolute 2.81 1.07 - 3.94 x10E9/L 10/09/2018 5:45 AM CDT [facility] Monocytes Absolute 1.19(H) 0.26 - [...] Auto 0 /100 WBC 10/09/2018 5:45 AM CDT [facility] Blood BLOOD SPECIMEN / Unknown Lab Venipuncture / Unknown 10/09/2018 5:22 AM CDT 10/09/2018 5:28 AM CDT Jay Ceja MD LAB - HEMATOLOGY ORD ERABLES [facility] [address] [place] [address] * (ABNORMAL) COMPREHENSIVE METABOLIC PANEL (10/09/2018 5:22 AM CDT) Glucose 124(H) 74 - 106 mg/dL 10/09/2018 6:05 AM [facility] Sodium 134(L) 136 - 145 mmol/L 10/09/2018 6:05 AM [facility] Potassium 4.1 3.5 - 5.1 mmol/L 10/09/2018 6:05 AM [facility] Chloride 99 98 - 107 mmol/L 10/09/2018 6:05 AM T [facility] CO2 26 23 - 31 mmol/L 10/09/2018 6:05 AM [facility] Calcium 8.9 8.4 - 10.2 mg/dL 10/09/2018 6:05 AM [facility] Anion Gap 9 8 - 16 mmol/L 10/09/2018 6:05 AM [facility] BUN 2(L) 7 - 18.7 mg/dL 10/09/2018 6:05 AM [facility] Creatinine 0.44(L) 0.55 - 1.02 mg/dL [...] - CHEMISTRY O RDERABLES [facility] [address] [place] [address] * GLUCOSE - POINT OF CARE (10/09/2018 4:23 AM CDT) Glucose WB/POC 99 70 - 106 mg/dL 10/09/2018 5:40 AM CDT [facility] Specimen Type Arterial/C apillary 10/09/2018 5:40 AM CDT [facility] Blood BLOOD SPECIMEN / Unknown 10/09/2018 4:23 AM CDT 10/09/2018 5:40 AM CDT Narrative [facility] - 10/09/2018 5:40 AM CDT (3) Treated per Protocol Franchesca Orellana MD LAB - POINT OF CARE ORDERABLES Performing Organization Address City/[facility]/ZIP Co de Phone Number [facility] [address] [place], [place] [phone] * (ABNORMAL) GLUCOSE - POINT OF CARE (10/09/2018 3:26 AM CDT) Glucose WB/POC 121(H) 70 - 106 mg/dL 10/09/2018 5:40 AM CDT [facility] Specimen Type Arterial/C apillary 10/09/2018 5:40 AM CDT [facility] Blood BLOOD SPECIMEN / Unknown 10/09/2018 3:26 AM CDT 10/09/2018 5:40 AM CDT Franchesca Orellana MD LAB - POINT OF CARE ORDERABLES Performing Organization Address [facility] Co de Phone Number [facility] [address] [place], [place] [phone] * (ABNORMAL) GLUCOSE - POINT OF CARE (10/09/2018 2:36 AM CDT) Glucose WB/POC 115(H) 70 - 106 mg/dL 10/09/2018 5:40 AM CDT [facility] Specimen Type Arterial/C apillary 10/09/2018 5:40 AM CDT [facility] Blood BLOOD SPECIMEN / Unknown 10/09/2018 2:36 AM CDT 10/09/2018 5:40 AM CDT Franchesca Orellana MD LAB - POINT OF CARE ORDERABLES Performing Organization Address City/[facility]/ZIP Co de Phone Number [facility] [address] [place], [place] [phone] * (ABNORMAL) GLUCOSE - POINT OF CARE (10/09/2018 1:22 AM CDT) Glucose WB/POC 125(H) 70 - 106 mg/dL 10/09/2018 5:40 AM CDT [facility] Specimen Type Arterial/C apillary 10/09/2018 5:40 AM CDT [facility] Blood BLOOD SPECIMEN / Unknown 10/09/2018 1:22 AM CDT 10/09/2018 5:40 AM CDT Franchesca Orellana MD LAB - POINT OF CARE ORDERABLES Performing Organization Address City/[facility]/ZIP Co de Phone Number [facility] [address] [place], [place] [phone] * (ABNORMAL) GLUCOSE - POINT OF CARE (10/09/2018 12:31 AM CDT) Glucose WB/POC 107(H) 70 - 106 mg/dL 10/09/2018 5:40 AM CDT [facility] Specimen Type Arterial/C apillary 10/09/2018 5:40 AM CDT [facility] Blood BLOOD SPECIMEN / Unknown 10/09/2018 12:31 AM CDT 10/09/2018 5:40 AM CDT Farnchesca Orellana MD LAB - POINT OF CARE ORDERABLES Performing Organization Address [facility]/ZIP Co de Phone Number [facility] [address] [place], [place] [phone] * (ABNORMAL) GLUCOSE - POINT OF CARE (10/08/2018 11:26 PM CDT) Glucose WB/POC 114(H) 70 - 106 mg/dL 10/08/2018 11:34 PM CDT [facility] Specimen Type Arterial/C apillary 10/08/2018 11:34 PM CDT [facility] Blood BLOOD SPECIMEN / Unknown 10/08/2018 11:26 PM CDT 10/08/2018 11:34 PM CDT Franchesca Orellana MD LAB - POINT OF CARE ORDERABLES Performing Organization Address [facility]/ZIP Co de Phone Number [facility] [address] [place], [place] [phone] * (ABNORMAL) GLUCOSE - POINT OF CARE (10/08/2018 10:29 PM CDT) Glucose WB/POC 130(H) 70 - 106 mg/dL 10/08/2018 11:34 PM CDT [facility] Specimen Type Arterial/C apillary 10/08/2018 11:34 PM CDT [facility] Blood BLOOD SPECIMEN / Unknown 10/08/2018 10:29 PM CDT 10/08/2018 11:34 PM CDT Franchesca Orellana MD LAB - POINT OF CARE ORDERABLES [facility] [address] [place] [phone] * (ABNORMAL) GLUCOSE - POINT OF CARE (10/08/2018 9:27 PM CDT) Pathologist [facility] Glucose WB/POC 128(H) 70 - 106 mg/dL 10/08/2018 10:17 PM CDT [facility] Specimen Type Arterial/C apillary 10/08/2018 10:17 PM CDT [facility] Blood BLOOD SPECIMEN / Unknown 10/08/2018 9:27 PM CDT 10/08/2018 10:17 PM CDT Franchesca Orellana MD LAB - POINT OF CARE ORDERABLES Performing Organization Address City/[facility]/ZIP Co de Phone Number [facility] [address] [place] [phone] * (ABNORMAL) KETONES QUALITATIVE URINE AUTO (10/08/2018 8:32 PM CDT) Pathologist [facility] Ketone UA 1+(A) Negative 10/08/2018 8:49 PM CDT [facility] Urine URINE / Unknown Collection / Unknown 10/08/2018 8:32 PM CDT 10/08/2018 8:39 PM CDT Narrative [facility] - 10/08/2018 8:49 PM CDT Suni Barrera MD LAB - URINALYSIS ORDERABLES Performing Organization Address City/[facility]/ZIP Co de Phone Number [facility] [address] [place] [phone] * (ABNORMAL) GLUCOSE - POINT OF CARE (10/08/2018 8:29 PM CDT) Glucose WB/POC 120(H) 70 - 106 mg/dL 10/08/2018 10:17 PM CDT [facility] Specimen Type Arterial/C apillary 10/08/2018 10:17 PM CDT [facility] Blood BLOOD SPECIMEN / Unknown 10/08/2018 8:29 PM CDT 10/08/2018 10:17 PM CDT Franchesca Orellana MD LAB - POINT OF CARE ORDERABLES Performing Organization Address City/[facility]/ZIP Co de Phone Number [facility] [address] [place] [phone] * GLUCOSE - POINT OF CARE (10/08/2018 7:18 PM CDT) Glucose WB/POC 98 70 - 106 mg/dL 10/08/2018 9:33 PM CDT [facility] Specimen Type Venous 10/08/2018 9:33 PM CDT [facility] Blood BLOOD SPECIMEN / Unknown 10/08/2018 7:18 PM CDT 10/08/2018 9:33 PM CDT Franchesca Orellana MD LAB - POINT OF CARE ORDERABLES Performing Organization Address City/[facility] Co de Phone Number [facility] [address] [place] [phone] * EKG 12-LEAD (10/08/2018 6:28 PM CDT) Ventricular Rate 80 BPM [facility] MUSE Atrial Rate 80 BPM [facility] P-R Interval 122 ms [facility] MUSE QRS Duration ms 80 ms [facility] MUSE Q-T Interval ms 350 ms [facility] MUSE QTC Calculation (Bezet) 403 ms [facility] MUSE Calculated P [place] 67 degrees [facility] MUSE Calculated R [place] 90 degrees [facility] MUSE Calculated T [place] 59 degrees [facility] MUSE Interpretation EKG SINUS RHYTHM WITH APCS BORDERLINE ECG NO PREVIOUS ECGS AVAILABLE Confirmed by MD Rudy, Felipe ([id number]) on 10/12/2018 7:33:13 AM [facility] MUSE 10/08/2018 6:28 PM CDT 10/12/2018 7:33 AM CDT Sandra Dickerson MD ECG ORDERABLES Performing Organization Address [facility]/ZIP Co de Phone Number [facility] * GLUCOSE - POINT OF CARE (10/08/2018 6:23 PM CDT) Glucose WB/POC 94 70 - 106 mg/dL 10/08/2018 9:33 PM CDT [facility] Specimen Type Arterial/C apillary 10/08/2018 9:33 PM CDT [facility] Blood BLOOD SPECIMEN / Unknown 10/08/2018 6:23 PM CDT 10/08/2018 9:33 PM CDT Franchesca Orellana MD LAB - POINT OF CARE ORDERABLES Performing Organization Address [facility] Co de Phone Number [facility] [address] [place] [phone] * (ABNORMAL) GLUCOSE - POINT OF CARE (10/08/2018 5:28 PM CDT) Glucose WB/POC 126(H) 70 - 106 mg/dL 10/08/2018 9:33 PM CDT [facility] Specimen Type Arterial/C apillary 10/08/2018 9:33 PM CDT [facility] Blood BLOOD SPECIMEN / Unknown 10/08/2018 5:28 PM CDT 10/08/2018 9:33 PM CDT Franchesca Orellana MD LAB - POINT OF CARE ORDERABLES Performing Organization Address [facility] Co de Phone Number [facility] [address] [place] [phone] * (ABNORMAL) HYDROXYBUTYRATE BETA (10/08/2018 4:57 PM CDT) Beta-Hydroxybu tyrate 0.6(H) <0.6 mmol/L 10/08/2018 5:27 [...] Mckoy MD LAB - CHEMISTRY HANDY KONG [facility] [address] [place] [address] * (ABNORMAL) COMPREHENSIVE METABOLIC PANEL (10/08/2018 4:57 PM CDT) [facility] Glucose 89 74 - 106 mg/dL 10/08/2018 5:23 PM CDT [facility] Sodium 133(L) 136 - 145 mmol/L 10/08/2018 5:23 PM CDT [facility] Potassium 2.8(L) 3.5 - 5.1 mmol/L 10/08/2018 5:23 PM CDT [facility] Chloride 103 98 - 107 mmol/L 10/08/2018 5:23 PM CDT [facility] CO2 22(L) 23 - 31 mmol/L 10/08/2018 5:23 PM CDT [facility] Calcium 8.4 8.4 - 10.2 mg/dL 10/08/2018 5:23 PM CDT [facility] Anion Gap 8 8 - 16 mmol/L 10/08/2018 5:23 PM CDT [facility] BUN 3(L) 7 - 18.7 mg/dL 10/08/2018 5:23 PM CDT [facility] Creatinine 0.46(L) 0.55 - 1.02 mg/dL 10/08/2018 5:23 PM CDT [facility] Alkaline Phosphatase 68 40 - 150 U/L 10/08/2018 5:23 PM CDT [facility] ALT 9(L) 13 - 61 U/L 10/08/2018 5:23 PM CDT [facility] AST 9 5 - 34 U/L 10/08/2018 5:23 PM CDT [facility] Protein Total 5.9(L) 6.4 - 8.3 gm/dL 10/08/2018 5:23 PM CDT [facility] Albumin 3.5 3.5 - 5.2 gm/dL 10/08/2018 5:23 PM CDT [facility] Bilirubin Total 0.7 0.2 - 1.0 mg/dL 10/08/2018 5:23 PM CDT [facility] eGFR by MDRD >60 >60 mL/min/1.7 3m2 10/08/2018 5:23 PM CDT [facility] eGFR by MDRD >60 >60 mL/min/1.7 3m2 10/08/2018 5:23 PM CDT [facility] Blood BLOOD SPECIMEN / Unknown Lab Venipuncture / Unknown 10/08/2018 4:57 PM CDT 10/08/2018 5:01 PM CDT Narrative [facility] - 10/08/2018 5:23 PM CDT Attention clinician: BUN Reference Range has changed. Lauren Mckoy MD LAB - CHEMISTRY HANDY KONG [facility] [address] [place] [phone] * (ABNORMAL) GLUCOSE - POINT OF CARE (10/08/2018 4:28 PM CDT) Glucose WB/POC 142(H) 70 - 106 mg/dL 10/08/2018 4:46 PM CDT [facility] Specimen Type Venous 10/08/2018 4:46 PM CDT [facility] Blood BLOOD SPECIMEN / Unknown 10/08/2018 4:28 PM CDT 10/08/2018 4:46 PM CDT Franchesca Orellana MD LAB - POINT OF CARE ORDERABLES [facility] [address] [place] [phone] * (ABNORMAL) GLUCOSE - POINT OF CARE (10/08/2018 3:32 PM CDT) Glucose WB/POC 174(H) 70 - 106 mg/dL 10/08/2018 4:46 PM CDT [facility] Specimen Type Venous 10/08/2018 4:46 PM CDT [facility] Blood BLOOD SPECIMEN / Unknown 10/08/2018 3:32 PM CDT 10/08/2018 4:45 PM CDT Franchesca Orellana MD LAB - POINT OF CARE ORDERABLES Performing Organization Address City/[facility]/ZIP Co de Phone Number [facility] [address] [place] [phone] * (ABNORMAL) GLUCOSE - POINT OF CARE (10/08/2018 2:20 PM CDT) Glucose WB/POC 231(H) 70 - 106 mg/dL 10/08/2018 2:39 PM CDT [facility] Specimen Type Venous 10/08/2018 2:39 PM CDT [facility] Blood BLOOD SPECIMEN / Unknown 10/08/2018 2:20 PM CDT 10/08/2018 2:39 PM CDT Franchesca Orellana MD LAB - POINT OF CARE ORDERABLES Performing Organization Address [facility] Co de Phone Number [facility] [address] [place] [phone] * (ABNORMAL) GLUCOSE - POINT OF CARE (10/08/2018 1:48 PM CDT) Glucose WB/POC 177(H) 70 - 106 mg/dL 10/08/2018 2:08 PM CDT [facility] Specimen Type Venous 10/08/2018 2:08 PM CDT [facility] Blood BLOOD SPECIMEN / Unknown 10/08/2018 1:48 PM CDT 10/08/2018 2:08 PM CDT Franchesca Orellana MD LAB - POINT OF CARE ORDERABLES Performing Organization Address City/[facility]/ZIP Co de Phone Number [facility] [address] [place] [phone] * (ABNORMAL) HYDROXYBUTYRATE BETA (10/08/2018 12:37 PM CDT) Beta-Hydroxybu tyrate 4.3(H) <0.6 mmol/L 10/08/2018 12:54 PM CDT [facility] Blood BLOOD SPECIMEN / Unknown Lab Venipuncture / Unknown 10/08/2018 12:37 PM CDT 10/08/2018 12:45 PM CDT Narrative [facility] - 10/08/2018 12:54 PM CDT Betahydroxybutyrate comment: This test replaces Serum Acetone testing.Results 0.6-1.5 mmol/L could require medical intervention. Results >1.5 mmol/L may be indicative of diabetic ketoacidosis. Use in conjunction with Serum Glucose levels. Suni Barrera MD LAB - CHEMISTRY O RDERABLES [facility] [address] [place], [place] [phone] * (ABNORMAL) BLOOD GASES ARTERIAL (10/08/2018 12:23 PM CDT) pH Arterial 7.42 7.35 - 7.45 pH 10/08/2018 12:37 PM CDT [facility] RESP THERAPY pCO2 Arterial 22(L) 35 - 45 mm hg 10/08/2018 12:37 PM CDT [facility] RESP THERAPY pO2 Arterial 110(H) 80 - 100 mm hg 10/08/2018 12:37 PM CDT [facility] RESP THERAPY HCO3 Arterial 14(L) 22 - 26 mmol/L 10/08/2018 12:37 PM CDT [facility] RESP THERAPY BE Arterial -7.9(L) -2.0 - 2.0 mmol/L 10/08/2018 12:37 PM CDT [facility] RESP THERAPY O2 Saturation Arterial 98 90 - 100 % 10/08/2018 12:37 PM CDT [facility] RES[facility] THERAPY Hemoglobin Arterial 13.9(L) 14.0 - 16.0 gm/dL 10/08/2018 12:37 PM CDT [facility] RESP THERAPY Carboxyhemoglobin Arterial 0.5 0.0 - 2.5 % 10/08/2018 12:37 PM CDT [facility] RESP THERAPY Methemoglobin Arterial 0.6 0.0 - 2.0 % 10/08/2018 12:37 PM CDT [facility] RESP THERAPY Oxyhemoglobin Arterial 97 % 10/08/2018 12:37 PM CDT [facility] RESP THERAPY Mode Room Air 10/08/2018 12:37 PM CDT [facility] RESP [facility]ERAP[facility] Sample Site R Radial 10/08/2018 12:37 PM CDT [facility] RESP [facility]ERAP[facility] Sample Type Arterial 10/08/2018 12:37 PM CDT [facility] RESP THERAPY [place] [id number] 10/08/2018 12:37 PM CDT [facility]AP[facility] Blood, arterial ARTERIAL BLOOD SPECIMEN / Unknown 10/08/2018 12:23 PM CDT 10/08/2018 12:23 PM CDT Suni Barrera MD LAB - BLOOD GASES ORDERABLES [facility] RESP THERAPY [address] [phone] * HCG BETA BLOOD QUANTITATIVE (10/08/2018 11:42 AM CDT) [facility] hCG Quantitative 7,151.16 mIU/mL 10/09/19 19 12:52 [...] Barrera MD LAB - CHEMISTRY O EVELIA [facility] [address] [place] [address] * (ABNORMAL) COMPREHENSIVE METABOLIC PANEL (10/08/2018 11:42 AM CDT) Glucose 135(H) 74 - 106 mg/dL 10/08/2018 12:47 PM CDT [facility] Sodium 131(L) 136 - 145 mmol/L 10/08/2018 12:47 PM CDT [facility] Potassium 3.7 3.5 - 5.1 mmol/L 10/08/2018 12:47 PM CDT [facility] Chloride 101 98 - 107 mmol/L 10/08/2018 12:47 PM CDT [facility] CO2 17(L) 23 - 31 mmol/L 10/08/2018 12:47 PM CDT [facility] Calcium 8.4 8.4 - 10.2 mg/dL 10/08/2018 12:47 PM CDT [facility] Anion Gap 13 8 - 16 mmol/L 10/08/2018 12:47 PM CDT [facility] BUN 5(L) 7 - 18.7 mg/dL 10/08/2018 12:47 PM CDT [facility] Creatinine 0.41(L) 0.55 - 1.02 mg/dL 10/08/2018 12:47 PM CDT [facility] Alkaline Phosphatase 71 40 - 150 U/L 10/08/2018 12:47 PM CDT [facility] ALT 8(L) 13 - 61 U/L 10/08/2018 12:47 PM CDT [facility] AST 10 5 - 34 U/L 10/08/2018 12:47 PM CDT [facility] Protein Total 6.1(L) 6.4 - 8.3 gm/dL 10/08/2018 12:47 PM CDT [facility] Albumin 3.5 3.5 - 5.2 gm/dL 10/08/2018 12:47 PM CDT [facility] Bilirubin Total 0.8 0.2 - 1.0 mg/dL 10/08/2018 12:47 PM CDT [facility] eGFR by MDRD >60 >60 mL/min/1.7 3m2 10/08/2018 12:47 PM CDT [facility] eGFR by MDRD >60 >60 mL/min/1.7 2 10/08/2018 12:47 PM CDT [facility] Blood BLOOD SPECIMEN / Unknown Lab Venipuncture / Unknown 10/08/2018 11:42 AM CDT 10/08/2018 12:09 PM CDT [facility] - 10/08/2018 12:47 PM CDT Attention clinician: BUN Reference Range has changed. Jay Ceja MD LAB - CHEMISTRY HANDY KONG [facility] Organization Address City/State/ZIP Co de Phone Number [facility] [address] [place] [address] * (ABNORMAL) GLUCOSE - POINT OF CARE (10/08/2018 11:33 AM CDT) Glucose WB/POC 149(H) 70 - 106 mg/dL 10/08/2018 11:42 AM CDT [facility] Specimen Type Venous 10/08/2018 11:42 AM CDT [facility] Blood BLOOD SPECIMEN / Unknown 10/08/2018 11:33 AM CDT 10/08/2018 11:42 AM CDT Franchesca Orellana MD LAB - POINT OF CARE ORDERABLES [facility] [address] [place] [address] * PROTEIN URINE QUALITATIVE AUTO (10/08/2018 11:20 AM CDT) Protein UA Negative Negative 10/08/2018 11:45 AM CDT [facility] Urine URINE / Unknown Collection / Unknown 10/08/2018 11:20 AM CDT 10/08/2018 11:32 AM CDT Jay Ceja MD LAB - URINALYSIS ORD ERABLES Performing Organization Address City/[facility]/ZIP Co de Phone Number [facility] [address] [place], [place] [phone] * (ABNORMAL) KETONES QUALITATIVE URINE AUTO (10/08/2018 11:20 AM CDT) Ketone UA 4+(A) Negative 10/08/2018 11:45 AM CDT [facility] Urine URINE / Unknown Collection / Unknown 10/08/2018 11:20 AM CDT 10/08/2018 11:32 AM CDT Jay Ceja MD LAB - URINALYSIS ORD ERABLES [facility] [address] [place], [place] [phone] * (ABNORMAL) GLUCOSE URINE QUALITATIVE AUTO (10/08/2018 11:20 AM CDT) Pathologist [facility] Glucose UA 2+(A) Negative 10/08/2018 11:45 AM CDT [facility] Urine URINE / Unknown Collection / Unknown 10/08/2018 11:20 AM CDT 10/08/2018 11:32 AM CDT Jay Ceja MD LAB - URINALYSIS ORD ERABLES Performing Organization Address City/[facility]/ZIP Co de Phone Number [facility] [address] [place] [phone] * (ABNORMAL) GLUCOSE - POINT OF CARE (10/08/2018 8:04 AM CDT) [facility] Glucose WB/POC 132(H) 70 - 106 mg/dL 10/08/2018 8:25 AM CDT [facility] Specimen Type Venous 10/08/2018 8:25 AM CDT [facility] Blood BLOOD SPECIMEN / Unknown 10/08/2018 8:04 AM CDT 10/08/2018 8:25 AM CDT Franchesca Orellana MD LAB - POINT OF CARE ORDERABLES Performing Organization Address City/[facility]/ZIP Co de Phone Number [facility] [address] [place], [place] [phone] * (ABNORMAL) CBC W AUTO DIFFERENTIAL (10/08/2018 6:13 AM CDT) Pathologist [facility] WBC 10.3 4.4 - 10.7 x10E9/L 10/08/2018 6:22 AM CDT [facility] WBC Corrected x10E9/L 10/08/2018 6:22 AM CDT [facility] RBC 5.01 3.80 - 5.20 x10E12/L 10/08/2018 6:22 AM CDT [facility] Hemoglobin 14.1 12.0 - 15.6 gm/dL 10/08/2018 6:22 AM CDT [facility] Hematocrit 40.8 35.9 - 45.5 % 10/08/2018 6:22 AM CDT [facility] MCV 81.4 80.7 - 98.3 fl 10/08/2018 6:22 AM CDT [facility] MCH 28.1 26.7 - 34.0 pg 10/08/2018 6:22 AM [facility] MCHC 34.6 30.8 - 35.9 gm/dL 10/08/2018 6:22 AM [facility] Platelet Count 383 153 - 416 x10E9/L 10/08/2018 6:22 AM [facility] RDW-CV 14.7 12.1 - 14.9 % 10/08/2018 6:22 AM [facility] MPV 9.0(L) 9.4 - 12.9 fl 10/08/2018 6:22 AM [facility] Neutrophils % 56.2 44.0 - 73.0 % 10/08/2018 6:22 AM [facility] Lymphocytes % 32.2 20.0 - 43.0 % 10/08/2018 6:22 AM [facility] Monocytes % 9.4 5.0 - 13.0 % 10/08/2018 6:22 AM [facility] Eosinophils % 0.0 0.0 - 6.0 % 10/08/2018 6:22 AM [facility] Basophils % 0.6 0.0 - 2.0 % 10/08/2018 6:22 AM [facility] Immature Granulocytes 1.6(H) 0 - 1 % 10/08/2018 6:22 AM [facility] Neutrophil Absolute 5.77 2.01 - 7.14 x10E9/L 10/08/2018 6:22 AM [facility] Lymphocytes Absolute 3.31 1.07 - 3.94 x10E9/L 10/08/2018 6:22 AM [facility] Monocytes Absolute 0.97 0.26 - 1.07 x10E9/L 10/08/2018 6:22 AM [facility] Eosinophils Absolute 0.00 0 - 0.47 x10E9/L 10/08/2018 6:22 AM [facility] Basophils Absolute 0.06 0 - 0.08 x10E9/L 10/08/2018 6:22 AM [facility] Immature Granulocytes Absolute 0.16(H) 0.00 - 0.06 x10E9/L 10/08/2018 6:22 AM [facility] nRBC Auto 0 /100 WBC 10/08/2018 6:22 AM CDT [facility] Blood BLOOD SPECIMEN / Unknown Lab Venipuncture / Unknown 10/08/2018 6:13 AM CDT 10/08/2018 6:15 AM CDT Cody Palmer MD LAB - HEMATOLOGY ORD ERABLES Performing Organization Address City/[facility]/ZIP Co de Phone Number [facility] [address] [place] [address] * BLOOD TYPE VERIFICATION (10/08/2018 6:05 AM CDT) ABO O 10/08/2018 6:50 AM CDT [facility] Rh Type Positive 10/08/2018 6:50 AM CDT [facility] Blood Bank BLOOD SPECIMEN / Unknown Lab Venipuncture / Unknown 10/08/2018 6:05 AM CDT 10/08/2018 6:12 AM CDT Franchesca Orellana MD LAB - BLOOD BA NK ORDERABLES Performing Organization Address [facility] Co de Phone Number [facility] [address] [place] [address] * (ABNORMAL) GLUCOSE - POINT OF CARE (10/08/2018 4:56 AM CDT) Glucose WB/POC 149(H) 70 - 106 mg/dL 10/08/2018 6:21 AM CDT [facility] Specimen Type Venous 10/08/2018 6:21 AM CDT [facility] Blood BLOOD SPECIMEN / Unknown 10/08/2018 4:56 AM CDT 10/08/2018 6:21 AM CDT Franchesca Orellana MD LAB - POINT OF CARE ORDERABLES Performing Organization Address City/[facility]/ZIP Co de Phone Number [facility] [address] [place] [address] * (ABNORMAL) GLUCOSE - POINT OF CARE (10/08/2018 2:04 AM CDT) Glucose WB/POC 177(H) 70 - 106 mg/dL 10/08/2018 6:15 AM CDT [facility] Specimen Type Venous 10/08/2018 6:15 AM CDT [facility] Blood BLOOD SPECIMEN / Unknown 10/08/2018 2:04 AM CDT 10/08/2018 6:15 AM CDT Franchesca Orellana MD LAB - POINT OF CARE ORDERABLES Performing Organization Address City/[facility] Co de Phone Number [facility] [address] [place] [address] * TYPE + SCREEN PANEL (10/08/2018 12:52 AM CDT) [facility] ABO O 10/08/2018 1:33 AM CDT [facility] Rh Type Positive 10/08/2018 1:33 AM CDT [facility] Comment:History checked. Col lect retype. Antibody Screen Negative 10/08/2018 1:33 AM CDT [facility] Blood Bank BLOOD SPECIMEN / Unknown Lab Venipuncture / Unknown 10/08/2018 12:52 AM CDT 10/08/2018 12:58 AM CDT Cody Palmer MD LAB - BLOOD BANK ORD ERABLES Performing Organization Address [facility] Co de Phone Number [facility] [address] [place] [address] * (ABNORMAL) HEMOGLOBIN A1C (10/08/2018 12:52 AM CDT) [facility] Hemoglobin A1c 10.3(H) 4.0 - 6.1 % [...] - CHEMISTRY HANDY KONG Performing Organization Address [facility]/ZIP Co de Phone Number [facility] [address] [place], [place] [phone] * (ABNORMAL) GLUCOSE - POINT OF CARE (10/07/2018 10:57 PM CDT) Glucose WB/POC 203(H) 70 - 106 mg/dL 10/07/2018 11:34 PM CDT [facility] Specimen Type Venous 10/07/2018 11:34 PM CDT [facility] Blood BLOOD SPECIMEN / Unknown 10/07/2018 10:57 PM CDT 10/07/2018 11:34 PM CDT Franchesca Orellana MD LAB - POINT OF CARE ORDERABLES Performing Organization Address [facility] Co de Phone Number [facility] [address], [place] [phone] * (ABNORMAL) URINALYSIS REFLEX MICROSCOPIC REFLEX CULTURE (10/07/2018 10:39 PM CDT) Color UA Yellow Straw, Yellow 10/07/2018 11:09 PM T [facility] Clarity UA Clear Clear 10/07/2018 11:09 PM [facility] Glucose UA 3+(A) Negative 10/07/2018 11:09 PM [facility] Bilirubin UA Negative Negative 10/07/2018 11:09 PM [facility] Ketone UA 2+(A) Negative 10/07/2018 11:09 PM T [facility] Specific [place] UA 1.022 1.005 - 1.030 10/07/2018 11:09 PM T [facility] Blood UA Negative Negative 10/07/2018 11:09 PM T [facility] pH UA 6.0 5.0 - 8.0 pH 10/07/2018 11:09 PM T [facility] Protein UA Negative Negative 10/07/2018 11:09 PM T [facility] Urobilinogen UA Negative Negative mg/dL 10/07/2018 11:09 PM T [facility] Nitrite UA Negative Negative 10/07/2018 11:09 PM T [facility] Leukocyte UA Negative Negative [...] URINALYSIS ORD ERABLES [facility] [address] [place] [address] * DRUG SCREEN TOX URINE PANEL (10/07/2018 10:38 PM CDT) [facility] Amphetamines Screen Urine Not Detected Not [...] URINE CHEMISTR Y ORDERABLES Performing Organization Address [facility] de Phone Number [facility] [address], [place] [phone] * HIV-1 HIV-2 ANTIBODY + HIV P24 AG PANEL (10/07/2018 8:53 PM CDT) [facility] HIV1/2 Ab + P24 Ag Non Reactive Non Reactive 10/07/2018 9:41 PM CDT [facility] Blood BLOOD SPECIMEN / Unknown Lab Venipuncture / Unknown 10/07/2018 8:53 PM CDT 10/07/2018 8:59 PM CDT Narrative [facility] - 10/07/2018 9:41 PM CDT No Laboratory evidence of HIV infection. Franchesca Orellana MD LAB - CHEMISTR Y ORDERABLES Performing Organization Address [facility] de Phone Number [facility] [address], [place] [phone] * RUBELLA ANTIBODY IGG (10/07/2018 8:53 PM CDT) [facility] Rubella Antibody 1.65 Immune >0.99 index 10/10/2018 8:06 AM CDT [facility] ([facility]) Comment: ?Non-immune ? <0.90 ?Equivocal ??0.90 - 0.99 ?Immune ? >0.99 Blood BLOOD SPECIMEN / Unknown Venipuncture / Unknown 10/07/2018 8:53 PM CDT 10/07/2018 8:59 PM CDT Narrative [facility] ([facility]) - 10/10/2018 8:06 AM CDT Performed at: ??01 - [facility] [address], [place] ??[id number] Gas Operations Analyst: Gregorio Ortega PhD, Phone: ??[phone] Cody Palmer MD LAB - SEROLOGY ORDER RULA Performing Organization Address City/[facility] Co de Phone Number [id number] ([facility]) [address] [place] [address] * SYPHILIS ANTIBODY CASCADING REFLEX (10/07/2018 8:53 [...] Palmer MD LAB - SEROLOGY ORDER RULA [facility] [address] [place] [address] * HEPATITIS B SURFACE ANTIGEN W RFLX CONFIRMATION (10/07/2018 8:53 PM CDT) HBsAg Non Reactive Non Reactive 10/07/2018 9:43 PM CDT [facility] Blood BLOOD SPECIMEN / Unknown Lab Venipuncture / Unknown 10/07/2018 8:53 PM CDT 10/07/2018 9:00 PM CDT Cody Palmer MD LAB - CHEMISTRY HANDY LORENKEVIN Performing Organization Address City/[facility]/ZIP Co de Phone Number [facility] [address] [place] [address] * TSH REFLEX FREE T4 (10/07/2018 8:53 PM CDT) TSH 0.4015 0.35 - 4.94 ulU/mL 10/07/2018 9:42 PM CDT [facility] Blood BLOOD SPECIMEN / Unknown Lab Venipuncture / Unknown 10/07/2018 8:53 PM CDT 10/07/2018 8:59 PM CDT Cody Palmer MD LAB - CHEMISTRY HANDY KONG Performing Organization Address [facility]/ZIP Co de Phone Number [facility] [address], [place] [phone] * (ABNORMAL) COMPREHENSIVE METABOLIC PANEL (10/07/2018 8:53 PM CDT) Glucose 165(H) 74 - 106 mg/dL 10/07/2018 9:22 PM CDT [facility] Sodium 133(L) 136 - 145 mmol/L 10/07/2018 9:22 PM CDT [facility] Potassium 4.3 3.5 - 5.1 mmol/L 10/07/2018 9:22 PM CDT [facility] Chloride 107 98 - 107 mmol/L 10/07/2018 9:22 PM CDT [facility] CO2 12(L) 23 - 31 mmol/L 10/07/2018 9:22 PM CDT [facility] Calcium 8.4 8.4 - 10.2 mg/dL 10/07/2018 9:22 PM CDT [facility] Anion Gap 14 8 - 16 mmol/L 10/07/2018 9:22 PM CDT [facility] BUN 5(L) 7 - 18.7 mg/dL 10/07/2018 9:22 PM CDT [facility] Creatinine 0.58 0.55 - 1.02 mg/dL 10/07/2018 9:22 PM CDT [facility] Alkaline Phosphatase 82 40 - 150 U/L 10/07/2018 9:22 PM CDT [facility] ALT 8(L) 13 - 61 U/L 10/07/2018 9:22 PM CDT [facility] AST 15 5 - 34 U/L 10/07/2018 9:22 PM CDT [facility] Protein Total 6.4 6.4 - 8.3 gm/dL 10/07/2018 9:22 PM CDT [facility] Albumin 3.5 3.5 - 5.2 gm/dL 10/07/2018 9:22 PM CDT [facility] Bilirubin Total 0.7 0.2 - 1.0 mg/dL 10/07/2018 9:22 PM CDT [facility] eGFR by MDRD >60 >60 mL/min/1.7 3m2 10/07/2018 9:22 PM CDT [facility] eGFR by MDRD >60 >60 mL/min/1.7 3m2 10/07/2018 9:22 PM CDT [facility] Blood BLOOD SPECIMEN / Unknown Lab Venipuncture / Unknown 10/07/2018 8:53 PM CDT 10/07/2018 8:59 PM CDT Narrative [facility] - 10/07/2018 9:22 PM CDT Attention clinician: BUN Reference Range has changed. Cody Palmer MD LAB - CHEMISTRY HANDY KONG [facility] [address] [place] [address] * (ABNORMAL) GLUCOSE - POINT OF CARE (10/07/2018 7:48 PM CDT) Glucose WB/POC 112(H) 70 - 106 mg/dL 10/07/2018 10:05 PM CDT [facility] Specimen Type Venous 10/07/2018 10:05 PM CDT [facility] Blood BLOOD SPECIMEN / Unknown 10/07/2018 7:48 PM CDT 10/07/2018 10:05 PM CDT Franchesca Orellana MD LAB - POINT OF CARE ORDERABLES [facility] [address] [place] [address] documented in this encounter Visit Diagnoses Diagnosis Type 1 diabetes mellitus with ketoacidosis without coma (HCC)- Primary Type 1 diabetes mellitus with ketoacidosis without coma (HCC) 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, antepartum (HCC) Diabetic ketoacidosis without coma associated with type 1 diabetes mellitus (HCC) 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, antepartum (HCC) documented in this encounter Administered Medications Inactive Administered Medications - up to 3 most recent administrations Medication Order MAR Action Action Date Dose Rate Site 0.9% NaCl injection 10 mL 10 mL, Intracatheter, EVERY 8 HOURS, 1095 doses, First dose on 10/09/18 at 1545, Last dose on Wed10/09/19 at 0600 $ Given 10/09/2018 3:15 PM CDT 10 mL acetaminophen (TYLENOL) tablet 650 mg 650 mg, Oral, EVERY 6 HOURS PRN, Mild Pain, Starting on Wed10/07/18 at 1959, Until 10/09/18 at 1706 bisacodyl (DULCOLAX) suppository 10 mg 10 mg, Rectal, DAILY PRN, Constipation, Starting on Wed10/07/18 at 2005, Until 10/09/18 at 1706 dextrose 5% and lactated ringers solution at 75 mL/hr, Intravenous, CONTINUOUS, Starting on 10/08/18 at 1300, Until 10/09/18 at 1507 Rate Change 10/09/2018 10:37 AM CDT 75 mL/hr 75 mL/hr $ New Bag/Syringe 10/09/2018 6:34 AM CDT 125 mL/hr 125 mL /hr $ New Bag/Syringe 10/08/2018 10:26 PM CDT 125 mL/hr 125 m L/hr dextrose 5% and lactated ringers solution at 75 mL/hr, Intravenous, CONTINUOUS, Starting on 10/08/18 at 1830, Until 10/08/18 at 2237, During bolus Rate Change 10/08/2018 5:50 PM CDT 75 mL/hr dextrose 5% and lactated ringers solution at 0-150 mL/hr, Intravenous, CONTINUOUS PRN, hypoglycemia, Starting on 10/09/18 at 1450, Until 10/09/18 at 1706, Start infusion as instructed by provider. Infuse until risk of hypoglycemia is gone. dextrose IV 12.5 g 12.5 g, Intravenous, PRN, hypoglycemia, Starting on Wed10/09/18 at 1450, Until Wed10/09/18 at 1706, .......... Moderate Hypoglycemia: With IV Access: Give D50, Notify Provider and obtain orders for a D5 containing fluid until risk of hypoglycemia is gone. Recheck BS in 15 min: Repeat treatment if blood sugar less than 60. Severe hypoglycemia - whether or not patient is NPO : If IV access in place: Give D50 IV. If D50 is not available, Glucagon may be given IM or subcutaneously. Notify provider and obtain orders for a D5 containing fluid and continue IV until patient is able to eat. Recheck BS in 15 minutes: Repeat treatment if BS is persistently less than 60 mg/dl. Observe for recurrent hypoglycemia. If none apparent, recheck BS in 1 hour. Once Patient is able to eat (and not NPO), provide meal or snack. docusate sodium (COLACE) capsule 100 mg 100 mg, Oral, 2 TIMES DAILY, First dose on Wed10/07/18 at 2100, Until Discontinued famotidine (PEPCID) injection 20 mg 20 mg, Intravenous, 2 TIMES DAILY, 730 doses, First dose on Wed10/07/18 at 2100, Last dose on Wed10/07/19 at 0900, Dilute 2 mL of injection with 0.9% NaCl or D5W solution to a volume of 5 to 10 ml. Push over a period of at least 2 minutes. $ Given 10/07/2018 8:28 PM CDT 20 mg famotidine (PEPCID) tablet 20 mg 20 mg, Oral, DAILY, 365 doses, First dose on Wed10/08/18 at 0945, Last dose on Wed10/07/19 at 0900 $ Given 10/09/2018 9:09 AM CDT 20 mg $ Given 10/08/2018 10:05 AM CDT 20 mg glucagon (GLUCAGEN) injection 1 mg 1 mg, Intramuscular, PRN, Hypoglycemia, Starting on Wed10/09/18 at 1450, Until Wed10/09/18 at 1706, .......... Severe hypoglycemia - whether or not patient is NPO : If IV access in place: Give D50 IV. If D50 is not available. Notify provider and obtain orders for a D5 containing fluid and continue IV until patient is able to eat. If no IV access: Give Glucagon IM or Subcutaneously. Restart IV. Notify provider and obtain orders for a D5 or D10. Recheck BS in 15 minutes: If BS is persistently less than 60 mg/dl. If repeat is persistently low and the patient remains severely hypoglycemic, give D50 Observe for recurrent hypoglycemia. If none apparent, recheck BS in 1 hour. Once Patient is able to eat (and not NPO), provide meal or snack. Reconstitute vial with 1 mL of sterile water for injection for a final concentration of 1 mg/mL; shake vial gently; use immediately and discard unused portion insulin aspart (NovoLOG) pen 2-100 Units 2-100 Units, Subcutaneous, DIRECTED, Starting on 10/09/18 at 1450, Until 10/09/18 at 1706, ............ Sub Q Orders Insulin / CHO Ratio ~ ~ ~ ~ ~ ~ ~ ~ ~ Time: all day 1 unit / 8 grams $ Given 10/09/2018 3:14 PM CDT 3 Units Left Arm insulin glargine (LANTUS) pen 10 Units 10 Units, Subcutaneous, AT BEDTIME, 365 doses, First dose on Wed10/07/18 at 2300, Last dose on Wed10/06/19 at 2100, Obtain current Blood Glucose if necessary . WASTE DISPOSAL INSTRUCTIONS: Black Bin Disposal required. $ Given 10/07/2018 11:31 PM CDT 10 Units Abdominal Tissue insulin regular human (humuLIN R; novoLIN R) 100 Units in 0.9% NaCl 100 mL OB infusion 0.5-30 Units/hr (0.5-30 mL/hr), Intravenous, CONTINUOUS, Starting on 10/08/18 at 1430, Until 10/09/18 at 1452, .......... O.B. I.V. INSULIN PROTOCOL Start IV insulin per pump at Rate/Dose: 4 units/hr then adjust insulin infusion rate based upon FSBG according to the below Algorithm: Less than 70 mg/dl discontinue infusion & notify physician. Recheck FSBG in 20-30 minutes. 70 - 90 mg/dl 0 units/hr 91 - 100 mg/dl 0.5 units/hr 101- 110 mg/dl 1.0 units/hr 111 - 120 mg/dl 1.5 units/hr 121 - 130 mg/dl 2.0 units/hr 131 - 140 mg/dl 2.5 units/hr 141 - 150 mg/dl 3.0 units/hr 151 - 160 mg/dl 3.5 units/hr 161 - 170 mg/dl 4.0 units/hr 171 - 180 mg/dl 4.5 units/hr 181 - 190 mg/dl 5.0 units/hr 191 - 200 mg/dl 5.5 units/hr 201 - 210 mg/dl 6.0 units/hr 211 - 220 mg/dl 6.5 units/hr 221 - 230 mg/dl 7.0 units/hr 231 - 240 mg/dl 7.5 units/hr 241 - 250 mg/dl 8.0 units/hr Greater than 250 mg/dl Notify H.O. . WASTE DISPOSAL INSTRUCTIONS: Black Bin Disposal required. Titration/Asse ssment 10/09/2018 2:39 PM CDT 0.5 Units/hr 0.5 mL/hr Titration/Assessment 10/09/2018 1:49 PM CDT 2 Units/hr 2 m L/hr Titration/Assessment 10/09/2018 12:38 PM CDT 3.5 Units/hr 3.5 mL/hr lactated ringers infusion ADS Med 1 dose, Starting on 10/08/18 at 1751, Until 10/08/18 at 1842, Suni Maldonado: cabinet override $ New Bag/Syringe 10/08/2018 6:42 PM CDT 1,000 mL lactated ringers infusion at 125 mL/hr, Intravenous, CONTINUOUS, Starting on Wed10/07/18 at 2045, Until 10/08/18 at 1218, Start IV with 18 gauge angiocath. $ New Bag/Syringe 10/08/2018 7:09 AM CDT 125 mL/hr $ New Bag/Syringe 10/07/2018 10:36 PM CDT 125 m L/hr $ New Bag/Syringe 10/07/2018 8:34 PM CDT 125 mL /hr lactated ringers IV bolus 1,000 mL, at 983.61 mL/hr, Administer over 61 Minutes, ONCE, 1 dose, On Wed10/07/18 at 2245 *Current Bag - New Order 10/07/2018 10:29 PM CDT 1,000 mL 983.61 mL/hr lactated ringers IV bolus 1,000 mL, at 1,935.48 mL/hr, Administer over 31 Minutes, ONCE, 1 dose, On 10/08/18 at 1300 Current Rate 10/08/2018 12:32 PM CDT 1,000 mL 999 mL/hr $ New Bag/Syringe 10/08/2018 12:31 PM CDT 1,000 mL 999 m L/hr lactated ringers IV bolus 2,000 mL, at 3,870.97 mL/hr, Administer over 31 Minutes, ONCE, 1 dose, On 10/08/18 at 1730 $ New Bag/Syringe 10/08/2018 5:47 PM CDT 1,000 mL 999 mL/hr lactated ringers IV bolus 1,000 mL, at 983.61 mL/hr, Administer over 61 Minutes, ONCE, 1 dose, On [facility] 10/08/18 at 1915 $ New Bag/Syringe 10/08/2018 6:50 PM CDT 1,000 mL 983.61 mL/hr lidocaine-prilocaine (EMLA) cream Topical, ONCE PRN, IV Fluid Start, 1 dose, Starting on Wed10/07/18 at 1959, Until 10/09/18 at 1706, May be applied locally to anesthetize prior to IV insertion. magnesium sulfate 1 g in 0.9% NaCl 100 mL bolus 1 g, at 100 mL/hr, Intravenous, ONCE, 1 dose, On 10/09/18 at 0730 $ New Bag/Syringe 10/09/2018 10:48 AM CDT 1 g 100 mL/hr metoclopramide (REGLAN) tablet 10 mg 10 mg, Oral, EVERY 6 HOURS PRN, Nausea/Vomiting, Starting on 10/08/18 at 0903, Until 10/09/18 at 1706 $ Given 10/08/2018 10:05 AM CDT 10 mg ondansetron (ZOFRAN) injection 4 mg 4 mg, Intravenous, EVERY 6 HOURS, First dose on Wed10/07/18 at 2100, Until Discontinued, Administer over 2 to 5 minutes. $ Given 10/07/2018 8:28 PM CDT 4 mg potassium chloride 20 mEq in 100 mL SW bolus 20 mEq, at 50 mL/hr, Administer over 2 Hours, Intravenous, ONCE, 1 dose, On 10/08/18 at 1800 $ New Bag/Syringe 10/08/2018 6:02 PM CDT 20 mEq 50 mL/hr potassium chloride 20 mEq in 100 mL SW bolus 20 mEq, at 50 mL/hr, Administer over 2 Hours, Intravenous, ONCE, 1 dose, On 10/08/18 at 2000 $ New Bag/Syringe 10/08/2018 7:04 PM CDT 20 mEq 50 mL/hr potassium chloride 20 mEq in 100 mL SW bolus 40 mEq, at 50 mL/hr, Administer over 4 Hours, Intravenous, EVERY 6 HOURS, 1 dose, First dose on 10/09/18 at 0130 $ New Bag/Syringe 10/09/2018 1:16 AM CDT 20 mEq 50 mL/hr potassium chloride 20 mEq in 100 mL SW bolus 20 mEq, at 50 mL/hr, Administer over 2 Hours, Intravenous, EVERY 6 HOURS, 3 doses, First dose on Wed10/09/18 at 0730, Last dose on [place] 10/09/18 at 1930 $ New Bag/Syringe 10/09/2018 3:20 AM CDT 20 mEq 50 mL/hr vitamin with iron tablet 1 tablet 1 tablet, Oral, DAILY, First dose on Wed10/07/18 at 2015, Until Discontinued prochlorperazine (COMPAZINE) tablet 5 mg 5 mg, Oral, EVERY 8 HOURS PRN, Nausea/Vomiting, Starting on [facility] 10/08/18 at 0903, Until Wed10/09/18 at 1706 promethazine (PHENERGAN) suppository 25 mg 25 mg, Rectal, EVERY 6 HOURS PRN, Nausea/Vomiting, Starting on [facility] 10/08/18 at 1230, Until [place] 10/09/18 at 1706 scopolamine (TRANSDERM-SCOP) 1 patch 1 patch, Administer over 72 Hours, EVERY 72 HOURS, 122 doses, First dose on Wed10/07/18 at 2315, Last dose on Wed10/05/19 at 2315, Apply patch behind the ear, do not cut patch, only 1 patch should be worn at a time and remove old patch before applying new patch.This patch may contain metal and is not compatible with MRI. Notify radiology of patch location upon arrival to MRI. Each patch contains 1.5 mg scopolamine base and is formulated to deliver 1 mg of scopolamine over 72 hours. $ Applied 10/07/2018 11:32 PM CDT 1 patch Behind Right Ear scopolamine patch placement confirmation Transdermal, 2 TIMES DAILY, 730 doses, First dose on Wed10/07/18 at 2245, Last dose on 10/07/19 at 0900, Patient has a patch to be confirmed on transition to inpatient and 2 times daily. simethicone (MYLICON) chew tablet 160 mg 160 mg, Oral, QID PRN (after meals and at bedtime), Gas Pain, Starting on Wed10/07/18 at 1959, Until Wed10/09/18 at 1706 sodium phosphate 20 mmol in dextrose 5 % 256.7 mL bolus 20 mmol, at 42.78 mL/hr, Intravenous, ONCE, 1 dose, On Wed10/09/18 at 0800 Restarted 10/09/2018 10:47 AM CDT 20 mmol 42.78 mL/hr $ New Bag/Syringe 10/09/2018 9:04 AM CDT 20 mmol 42.78 mL/hr trimethobenzamide (TIGAN) injection 200 mg 200 mg, Intramuscular, EVERY 6 HOURS PRN, Nausea/Vomiting, Starting on Wed10/08/18 at 1230, Until Wed10/09/18 at 1706, IM use only; do not administer IV documented in this encounter Active and Recently Administered Medications Times are shown in CDT. Scheduled Medication Order 10/07/2018 10/08/2018 10/09/2018 0.9% NaCl injection 10 mL 10 mL, Intracatheter, EVERY 8 HOURS, 1095 doses, First dose on Wed10/09/18 at 1545, Last dose on Wed10/09/19 at 0600 1515 ($ Given - Provider: Kirsten Thomas RN) docusate sodium (COLACE) capsule 100 mg 100 mg, Oral, 2 TIMES DAILY, First dose on Wed10/07/18 at 2100, Until Discontinued 2023 (Not Administered - Provider: Marissa Brooks RN - Reason: Refused-Patient) 922 (Not Administered - Provider: Kirsten Thomas RN - Reason: Refused-Patient)1955 (Not Administered - Provider: Amanda Hines RN - Reason: Refused-Patient) 917 (Not Administered - Provider: Kirsten Thomas RN - Reason: Refused-Patient) famotidine (PEPCID) injection 20 mg (CANCELED) 20 mg, Intravenous, 2 TIMES DAILY, 730 doses, First dose on Wed10/07/18 at 2100, Last dose on Wed10/07/19 at 0900, Dilute 2 mL of injection with 0.9% NaCl or D5W solution to a volume of 5 to 10 ml. Push over a period of at least 2 minutes. 2027 ($ Given - Provider: Marissa Brooks RN) 923 (Not Administered - Provider: Kirsten Thomas RN - Reason: Discontinued by physician - Comment: per Dr. Ceaj) famotidine (PEPCID) tablet 20 mg 20 mg, Oral, DAILY, 365 doses, First dose on Wed10/08/18 at 0945, Last dose on Wed10/07/19 at 0900 1005 ($ Given - Provider: Kirsten Thomas RN) 0909 ($ Given - Provider: Kirsten Thomas RN) insulin aspart (NovoLOG) pen 2-100 Units 2-100 Units, Subcutaneous, DIRECTED, Starting on Wed10/09/18 at 1450, Until Wed10/09/18 at 1706, ............ Sub Q Orders Insulin / CHO Ratio ~ ~ ~ ~ ~ ~ ~ ~ ~ Time: all day 1 unit / 8 grams 1514 ($ Given - Provider: Kirsten Thomas RN) insulin glargine (LANTUS) pen 10 Units (CANCELED) 10 Units, Subcutaneous, AT BEDTIME, 365 doses, First dose on Wed10/07/18 at 2300, Last dose on Wed10/06/19 at 2100, Obtain current Blood Glucose if necessary . WASTE DISPOSAL INSTRUCTIONS: Black Bin Disposal required. 2331 ($ Given - Provider: Marissa Brooks, MARY) lactated ringers IV bolus (COMPLETED) 1,000 mL, at 983.61 mL/hr, Administer over 61 Minutes, ONCE, 1 dose, On Wed10/07/18 at 2245 2229 (*Current Bag - New Order - Provider: Marissa Brooks, MARY) lactated ringers IV bolus (COMPLETED)(Linked Group 1) 1,000 mL, at 1,935.48 mL/hr, Administer over 31 Minutes, ONCE, 1 dose, On Wed10/08/18 at 1300 1231 (Canceled Entry - Provider: Kirsten Thomas RN)1231 ($ New Bag/Syringe - Provider: Kirsten Thomas RN)1232 (Current Rate - Provider: Kirsten Thomas RN)1338 (Stopped - Provider: Kirsten Thomas RN) lactated ringers IV bolus (COMPLETED) 2,000 mL, at 3,870.97 mL/hr, Administer over 31 Minutes, ONCE, 1 dose, On 10/08/18 at 1730 1747 ($ New Bag/Syringe - Provider: Suni Maldonado RN)1840 (Stopped - Provider: Kirsten Thomas RN) lactated ringers IV bolus (COMPLETED) 1,000 mL, at 983.61 mL/hr, Administer over 61 Minutes, ONCE, 1 dose, On 10/08/18 at 1915 1850 ($ New Bag/Syringe - Provider: Kirsten Thomas RN)1955 (Stopped - Provider: Amanda Hines RN) magnesium sulfate 1 g in 0.9% NaCl 100 mL bolus (COMPLETED) 1 g, at 100 mL/hr, Intravenous, ONCE, 1 dose, On Wed10/09/18 at 0730 1048 ($ New Bag/Syringe - Provider: Kirsten Thomas RN)1154 (Stopped - Provider: Kirsten Thomas RN) ondansetron (ZOFRAN) injection 4 mg (CANCELED) 4 mg, Intravenous, EVERY 6 HOURS, First dose on Wed10/07/18 at 2100, Until Discontinued, Administer over 2 to 5 minutes. 2028 ($ Given - Provider: Marissa Brooks RN) 0502 (Not Administered - Provider: Marissa Brooks RN - Reason: Refused-Patient)0924 (Not Administered - Provider: Kirsten Thomas RN - Reason: Discontinued by physician - Comment: per Dr. Ceja) potassium chloride 20 mEq in 100 mL SW bolus (COMPLETED)(Linked Group 2) 20 mEq, at 50 mL/hr, Administer over 2 Hours, Intravenous, ONCE, 1 dose, On 10/08/18 at 1800 1802 ($ New Bag/Syringe - Provider: Suni Maldonado RN)1903 (Stopped - Provider: Kirsten Thomas RN) potassium chloride 20 mEq in 100 mL SW bolus (COMPLETED)(Linked Group 2) 20 mEq, at 50 mL/hr, Administer over 2 Hours, Intravenous, ONCE, 1 dose, On 10/08/18 at 2000 1904 ($ New Bag/Syringe - Provider: Kirsten Thomas RN)2208 (Stopped - Provider: Amanda Hinse RN) potassium chloride 20 mEq in 100 mL SW bolus (COMPLETED) 40 mEq, at 50 mL/hr, Administer over 4 Hours, Intravenous, EVERY 6 HOURS, 1 dose, First dose on 10/09/18 at 0130 0116 ($ New Bag/Syringe - Provider: Amanda Hines RN - Comment: K+ administered in 20mEq per bag)0321 (Stopped - Provider: Amanda Hines RN - Comment: Time automatically adjusted from order being discontinued) potassium chloride 20 mEq in 100 mL SW bolus (CANCELED)(Linked Group 3) 20 mEq, at 50 mL/hr, Administer over 2 Hours, Intravenous, EVERY 6 HOURS, 3 doses, First dose on 10/09/18 at 0730, Last dose on 10/09/18 at 1930 0320 ($ New Bag/Syringe - Provider: Amanda Hines RN)0321 (Not Administered - Provider: Amanda Hines RN - Reason: See Comments - Comment: documented on duplicate row for 20 mEq) vitamin with iron tablet 1 tablet 1 tablet, Oral, DAILY, First dose on Wed10/07/18 at 2015, Until Discontinued 2023 (Not Administered - Provider: Marissa Brooks RN - Reason: Refused-Patient) 1004 (Not Administered - Provider: Kirsten Thomas RN - Reason: Refused-Patient) 0917 (Not Administered - Provider: Kirsten Thomas RN - Reason: Refused-Patient) scopolamine (TRANSDERM-SCOP) 1 patch(Linked Group 4) 1 patch, Administer over 72 Hours, EVERY 72 HOURS, 122 doses, First dose on Wed10/07/18 at 2315, Last dose on Wed10/05/19 at 2315, Apply patch behind the ear, do not cut patch, only 1 patch should be worn at a time and remove old patch before applying new patch.This patch may contain metal and is not compatible with MRI. Notify radiology of patch location upon arrival to MRI. Each patch contains 1.5 mg scopolamine base and is formulated to deliver 1 mg of scopolamine over 72 hours. 2332 ($ Applied - Provider: Marissa Brooks RN) scopolamine patch placement confirmation(Linked Group 4) Transdermal, 2 TIMES DAILY, 730 doses, First dose on 10/07/18 at 2245, Last dose on 10/07/19 at 0900, Patient has a patch to be confirmed on transition to inpatient and 2 times daily. 0041 (*Reviewed - Provider: Marissa Brooks RN)0808 (*Reviewed - Provider: Kirsten Thomas RN)1955 (*Reviewed - Provider: Amanda Hines RN) 0917 (*Reviewed - Provider: Kirsten Thomas RN) sodium phosphate 20 mmol in dextrose 5 % 256.7 mL bolus (COMPLETED) 20 mmol, at 42.78 mL/hr, Intravenous, ONCE, 1 dose, On 10/09/18 at 0800 0904 ($ New Bag/Syringe - Provider: Kirsten Thomas RN)0915 (Stopped - Provider: Kirsten Thomas RN - Comment: loss of iv access; attempting to initiate new site)1047 (Restarted - Provider: Kirsten Thomas RN)1520 (Stopped - Provider: Kirsten Thomas RN) Continuous Medication Order 10/07/2018 10/08/2018 10/09/2018 dextrose 5% and lactated ringers solution (CANCELED)(Linked Group 1) at 75 mL/hr, Intravenous, CONTINUOUS, Starting on 10/08/18 at 1300, Until 10/09/18 at 1507 1339 ($ New Bag/Syringe - Provider: Kirsten Thomas RN)2033 (Current Rate - Provider: Amanda Hines, MARY)2226 ($ New Bag/Syringe - Provider: Amanda Hines RN) 0634 ($ New Bag/Syringe - Provider: Nik Malave RN)0915 (Stopped - Provider: Kirsten Thomas RN - Comment: loss of iv access; attempting new site)1037 (Rate Change - Provider: Kirsten Thomas RN)1516 (Stopped - Provider: Kirsten Thomas RN) dextrose 5% and lactated ringers solution (CANCELED) at 75 mL/hr, Intravenous, CONTINUOUS, Starting on 10/08/18 at 1830, Until 10/08/18 at 2237, During bolus 1750 (Rate Change - Provider: Suni Maldonado RN)2032 (Stopped - Provider: Amanda Hines RN) insulin regular human (humuLIN R; novoLIN R) 100 Units in 0.9% NaCl 100 mL OB infusion (CANCELED) 0.5-30 Units/hr (0.5-30 mL/hr), Intravenous, CONTINUOUS, Starting on 10/08/18 at 1430, Until 10/09/18 at 1452, .......... O.B. I.V. INSULIN PROTOCOL Start IV insulin per pump at Rate/Dose: 4 units/hr then adjust insulin infusion rate based upon FSBG according to the below Algorithm: Less than 70 mg/dl discontinue infusion & notify physician. Recheck FSBG in 20-30 minutes. 70 - 90 mg/dl 0 units/hr 91 - 100 mg/dl 0.5 units/hr 101- 110 mg/dl 1.0 units/hr 111 - 120 mg/dl 1.5 units/hr 121 - 130 mg/dl 2.0 units/hr 131 - 140 mg/dl 2.5 units/hr 141 - 150 mg/dl 3.0 units/hr 151 - 160 mg/dl 3.5 units/hr 161 - 170 mg/dl 4.0 units/hr 171 - 180 mg/dl 4.5 units/hr 181 - 190 mg/dl 5.0 units/hr 191 - 200 mg/dl 5.5 units/hr 201 - 210 mg/dl 6.0 units/hr 211 - 220 mg/dl 6.5 units/hr 221 - 230 mg/dl 7.0 units/hr 231 - 240 mg/dl 7.5 units/hr 241 - 250 mg/dl 8.0 units/hr Greater than 250 mg/dl Notify H.O. . WASTE DISPOSAL INSTRUCTIONS: Black Bin Disposal required. 1425 ($ New Bag/Syringe - Provider: Kirsten Thomas RN)1532 (Titration/Assessment - Provider: Kirsten Thomas RN)1628 (Titration/Assessment - Provider: Kirsten Thomas RN)1728 (Titration/Assessment - Provider: Suni Maldonado RN)1823 (Titration/Assessment - Provider: Suni Maldonado RN)1918 (Current Rate - Provider: Kirsten Thomas RN)2028 (Rate Change - Provider: Amanda Hines RN)212 (Rate Change - Provider: Amanda Hines RN)2230 (Current Rate - Provider: Amanda Hines RN)2324 (Rate Change - Provider: Amanda Hines RN) 0029 (Rate Change - Provider: Amanda Hines RN)0122 (Rate Change - Provider: Amanda Hines, MARY)0233 (Rate Change - Provider: Amanda Hines RN)0325 (Rate Change - Provider: Amanda Hines RN)0423 (Rate Change - Provider: Nik Malave RN)0525 (Rate Change - Provider: Amanda Hines RN)0632 (Rate Change - Provider: Nik Malave RN)0728 (Current Rate - Provider: Kirsten Thomas RN)0848 (Titration/Assessment - Provider: Kirsten Thomas RN)0919 (Stopped - Provider: Kirsten Thomas RN - Comment: loss of iv access; attempting new site)1040 (Restarted - Provider: Kirsten Thomas RN)1149 (Titration/Assessment - Provider: Kirsten Thomas RN)1238 (Titration/Assessment - Provider: Kirsten Thomas RN)1349 (Titration/Assessment - Provider: Kirsten Thomas RN)1439 (Titration/Assessment - Provider: Kirsten Thomas RN) lactated ringers infusion (CANCELED) at 125 mL/hr, Intravenous, CONTINUOUS, Starting on Wed10/07/18 at 2045, Until 10/08/18 at 1218, Start IV with 18 gauge angiocath. 2033 ($ New Bag/Syringe - Provider: Marissa Brooks RN)2236 ($ New Bag/Syringe - Provider: Marissa Brooks RN) 0709 ($ New Bag/Syringe - Provider: Kirsten Thomas RN)1230 (Stopped - Provider: Kirsten Thomas RN) PRN Medication Order 10/07/2018 10/08/2018 10/09/2018 acetaminophen (TYLENOL) tablet 650 mg 650 mg, Oral, EVERY 6 HOURS PRN, Mild Pain, Starting on Wed10/07/18 at 1959, Until 10/09/18 at 1706 bisacodyl (DULCOLAX) suppository 10 mg 10 mg, Rectal, DAILY PRN, Constipation, Starting on Wed10/07/18 at 2005, Until Wed10/09/18 at 1706 dextrose 5% and lactated ringers solution at 0-150 mL/hr, Intravenous, CONTINUOUS PRN, hypoglycemia, Starting on Wed10/09/18 at 1450, Until 10/09/18 at 1706, Start infusion as instructed by provider. Infuse until risk of hypoglycemia is gone. 1516 (Not Administer ed - Provider: Kirsten Thomas RN - Reason: Documented on duplicate row) dextrose IV 12.5 g 12.5 g, Intravenous, PRN, hypoglycemia, Starting on Wed10/09/18 at 1450, Until Wed10/09/18 at 1706, .......... Moderate Hypoglycemia: With IV Access: Give D50, Notify Provider and obtain orders for a D5 containing fluid until risk of hypoglycemia is gone. Recheck BS in 15 min: Repeat treatment if blood sugar less than 60. Severe hypoglycemia - whether or not patient is NPO : If IV access in place: Give D50 IV. If D50 is not available, Glucagon may be given IM or subcutaneously. Notify provider and obtain orders for a D5 containing fluid and continue IV until patient is able to eat. Recheck BS in 15 minutes: Repeat treatment if BS is persistently less than 60 mg/dl. Observe for recurrent hypoglycemia. If none apparent, recheck BS in 1 hour. Once Patient is able to eat (and not NPO), provide meal or snack. glucagon (GLUCAGEN) injection 1 mg 1 mg, Intramuscular, PRN, Hypoglycemia, Starting on Wed10/09/18 at 1450, Until Wed10/09/18 at 1706, .......... Severe hypoglycemia - whether or not patient is NPO : If IV access in place: Give D50 IV. If D50 is not available. Notify provider and obtain orders for a D5 containing fluid and continue IV until patient is able to eat. If no IV access: Give Glucagon IM or Subcutaneously. Restart IV. Notify provider and obtain orders for a D5 or D10. Recheck BS in 15 minutes: If BS is persistently less than 60 mg/dl. If repeat is persistently low and the patient remains severely hypoglycemic, give D50 Observe for recurrent hypoglycemia. If none apparent, recheck BS in 1 hour. Once Patient is able to eat (and not NPO), provide meal or snack. Reconstitute vial with 1 mL of sterile water for injection for a final concentration of 1 mg/mL; shake vial gently; use immediately and discard unused portion lidocaine-prilocaine (EMLA) cream Topical, ONCE PRN, IV Fluid Start, 1 dose, Starting on Wed10/07/18 at 1959, Until 10/09/18 at 1706, May be applied locally to anesthetize prior to IV insertion. metoclopramide (REGLAN) tablet 10 mg 10 mg, Oral, EVERY 6 HOURS PRN, Nausea/Vomiting, Starting on 10/08/18 at 0903, Until 10/09/18 at 1706 1005 ($ Given - Provider: Kirsten Thomas RN) prochlorperazine (COMPAZINE) tablet 5 mg 5 mg, Oral, EVERY 8 HOURS PRN, Nausea/Vomiting, Starting on 10/08/18 at 0903, Until 10/09/18 at 1706 promethazine (PHENERGAN) suppository 25 mg 25 mg, Rectal, EVERY 6 HOURS PRN, Nausea/Vomiting, Starting on 10/08/18 at 1230, Until 10/09/18 at 1706 simethicone (MYLICON) chew tablet 160 mg 160 mg, Oral, QID PRN (after meals and at bedtime), Gas Pain, Starting on Wed10/07/18 at 1959, Until 10/09/18 at 1706 trimethobenzamide (TIGAN) injection 200 mg 200 mg, Intramuscular, EVERY 6 HOURS PRN, Nausea/Vomiting, Starting on 10/08/18 at 1230, Until 10/09/18 at 1706, IM use only; do not administer IV No Frequency Medication Order 10/07/2018 10/08/2018 10/09/2018 lactated ringers infusion ADS Med (COMPLETED) 1 dose, Starting on 10/08/18 at 1751, Until 10/08/18 at 1842, Suni Maldonado: cabinet override 1841 ($ New Bag/Syringe - Provider: Kirsten Thomas RN) Linked Groups Order Group 1: lactated ringers IV bolus (COMPLETED)Jump to med 1,000 mL, at 1,935.48 mL/hr, Administer over 31 Minutes, ONCE, 1 dose, On 10/08/18 at 1300 Followed by dextrose 5% and lactated ringers solution (CANCELED)Jump to med at 75 mL/hr, Intravenous, CONTINUOUS, Starting on 10/08/18 at 1300, Until 10/09/18 at 1507 Group 2: potassium chloride 20 mEq in 100 mL SW bolus (COMPLETED)Jump to med 20 mEq, at 50 mL/hr, Administer over 2 Hours, Intravenous, ONCE, 1 dose, On 10/08/18 at 1800 Followed by potassium chloride 20 mEq in 100 mL SW bolus (COMPLETED)Jump to med 20 mEq, at 50 mL/hr, Administer over 2 Hours, Intravenous, ONCE, 1 dose, On 10/08/18 at 2000 Group 3: potassium chloride 20 mEq in 100 mL SW bolus (CANCELED) 20 mEq, at 50 mL/hr, Administer over 2 Hours, Intravenous, EVERY 6 HOURS, 3 doses, First dose on 10/09/18 at 0930, Last dose on 10/09/18 at 2130 And potassium chloride 20 mEq in 100 mL SW bolus (CANCELED)Jump to med 20 mEq, at 50 mL/hr, Administer over 2 Hours, Intravenous, EVERY 6 HOURS, 3 doses, First dose on 10/09/18 at 0730, Last dose on 10/09/18 at 1930 Group 4: scopolamine (TRANSDERM-SCOP) 1 patchJump to med 1 patch, Administer over 72 Hours, EVERY 72 HOURS, 122 doses, First dose on Wed10/07/18 at 2315, Last dose on Wed10/05/19 at 2315, Apply patch behind the ear, do not cut patch, only 1 patch should be worn at a time and remove old patch before applying new patch.This patch may contain metal and is not compatible with MRI. Notify radiology of patch location upon arrival to MRI. Each patch contains 1.5 mg scopolamine base and is formulated to deliver 1 mg of scopolamine over 72 hours. And scopolamine patch placement confirmationJump to med Transdermal, 2 TIMES DAILY, 730 doses, First dose on Wed10/07/18 at 2245, Last dose on Wed10/07/19 at 0900, Patient has a patch to be confirmed on transition to inpatient and 2 times daily. documented in this encounter Care Teams Recording Studio Setup Worker Relationship Specialty Start Date End Date Jolanta Freeman MD PCP - General Pediatrics 05/24/13 documented as of this encounter
--- OUTSIDE RECORDS SUMMARY | 2024-05-10 18:52 | XMS_ITS | Referral Summary ---
Author Organization [facility] [employer] Address [address] [place] [address] Care Team Providers Care Drill Runner Helper Name Role Phone Jolanta Freeman MD Primary Care Provider + [phone] Source Comments [facility] [employer],non-owned Affiliates and Associated Physician Practices is amultiple site organization consisting of ambulatory clinics and hospital sitesin [place], [place], [place] and [place]. This disclosure is being madepursuant to the Care Everywhere program and may not contain all information available regarding this patient. Last updated 18.[facility] [employer] Allergies No known active allergies Medications * [...] Mass Index 25.05 02/07/2018 2:10 PM CDT Functional Status Functional Status Response Date of [...] person have difficulty concentrating/remembering/making decisions? No 10/07/2018 Plan of Treatment Not on file Procedures Procedure Name Priority Date/Time Associated Diagnosis Comments COMPREHENSIVE METABOLIC PANEL AM Draw 10/09/2018 5:22 AM CDT HEMOGLOBIN A1C LUEP 10/08/2018 12:52 AM CDT Type 1 diabetes mellitus with ketoacidosis without coma (HCC) 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, antepartum (HCC) HIV-1 HIV-2 ANTIBODY + HIV P24 AG PANEL Add on 10/07/2018 8:53 PM CDT from Last 3 Months or Most Recently Relevant to Health Maintenance Results * (ABNORMAL) COMPREHENSIVE METABOLIC PANEL (10/09/2018 5:22 AM CDT) [facility] Glucose 124(H) 74 - 106 mg/dL 10/09/2018 6:05 AM CDT [facility] Sodium 134(L) 136 - 145 mmol/L 10/09/2018 6:05 AM CDT [facility] Potassium 4.1 3.5 - 5.1 mmol/L 10/09/2018 6:05 AM CDT [facility] Chloride 99 98 - 107 mmol/L 10/09/2018 6:05 AM CDT [facility] CO2 26 23 - 31 mmol/L 10/09/2018 6:05 AM CDT [facility] Calcium 8.9 8.4 - 10.2 mg/dL 10/09/2018 6:05 AM T [facility] Anion Gap 9 8 - 16 mmol/L 10/09/2018 6:05 AM T [facility] BUN 2(L) 7 - 18.7 mg/dL 10/09/2018 6:05 AM T [facility] Creatinine 0.44(L) 0.55 - 1.02 mg/dL 10/09/2018 6:05 AM T [facility] Alkaline Phosphatase 69 40 - 150 U/L 10/09/2018 6:05 AM T [facility] ALT 9(L) 13 - 61 U/L 10/09/2018 6:05 AM T [facility] AST 12 5 - 34 U/L 10/09/2018 6:05 AM [facility] Protein Total 6.1(L) 6.4 - 8.3 gm/dL 10/09/2018 6:05 AM T [facility] Albumin 3.6 3.5 - 5.2 gm/dL 10/09/2018 6:05 AM T [facility] Bilirubin Total 0.7 0.2 - 1.0 mg/dL 10/09/2018 6:05 AM T [facility] eGFR by MDRD >60 >60 mL/min/1.7 3m2 10/09/2018 6:05 AM [facility] eGFR by MDRD >60 >60 mL/min/1.7 3m2 10/09/2018 6:05 AM [facility] Blood BLOOD SPECIMEN / Unknown Lab Venipuncture / Unknown 10/09/2018 5:22 AM CDT 10/09/2018 5:28 AM CDT Narrative [facility] - 10/09/2018 6:05 AM CDT Attention clinician: BUN Reference Range has changed. Suni Barrera MD LAB - CHEMISTRY O RDERABLES [facility] [address] [place] [address] * (ABNORMAL) HEMOGLOBIN A1C (10/08/2018 12:52 AM CDT) Hemoglobin A1c 10.3(H) 4.0 - 6.1 % 10/08/2018 1:18 AM CDT [facility] Estimated Average Glucose 249 mg/dL 10/08/2018 1:18 AM CDT [facility] Blood BLOOD SPECIMEN / Unknown Lab Venipuncture / Unknown 10/08/2018 12:52 AM CDT 10/08/2018 12:57 AM CDT Narrative [facility] - 10/08/2018 1:18 AM CDT Attention clinician: ??Reference Range has changed. Cody Palmer MD LAB - CHEMISTRY HANDY KONG Performing Organization Address City/[facility]/ZIP Co de Phone Number [facility] [address] [place], [place] [id number] * HIV-1 HIV-2 ANTIBODY + HIV P24 AG PANEL (10/07/2018 8:53 PM CDT) HIV1/2 Ab + P24 Ag Non Reactive Non Reactive 10/07/2018 9:41 PM CDT [facility] Blood BLOOD SPECIMEN / Unknown Lab Venipuncture / Unknown 10/07/2018 8:53 PM CDT 10/07/2018 8:59 PM CDT Narrative [facility] - 10/07/2018 9:41 PM CDT No Laboratory evidence of HIV infection. Franchesca Orellana MD LAB - CHEMISTR Y ORDERABLES Performing Organization Address City/[facility]/ZIP Co de Phone Number [facility] [address] [place] [address] from Last 3 Months or Most Recently [...] 9:40 PM 11/30/2017 4:07 PM Care Teams Drill Runner Helper Relationship Specialty Start Date End Date Jolanta Freeman MD PCP - General Pediatrics 05/24/13
--- OUTSIDE RECORDS SUMMARY | 2024-05-10 18:52 | XMS_ITS | Encounter Summary ---
Author Organization [facility] Address [address] [place] [address] Care Team Providers Care Live Games Dealer Name Role Phone Jolanta Freeman MD Primary Care Provider + [phone] Encounter Details Date Type Department Care Team (Late st Contact Info) Description 03/02/2018 Orders Only [facility], Diabetes and Metabolism [address] [place] [address] Bri Morales RN Type 1 diabetes mellitus with ketoacidosis without coma (HCC) Social History Tobacco Use Types Packs/Day [...] (HCC) documented in this encounter Care Teams Live Games Dealer Relationship Specialty Start Date End Date Jolanta Freeman MD PCP - General Pediatrics 05/24/13 documented as of this encounter
--- OUTSIDE RECORDS SUMMARY | 2024-05-10 18:52 | XMS_ITS | Encounter Summary ---
Author Organization [facility] Address [address] [place] [address] Care Team Providers Care Director Video Name Role Phone Jolanta Freeman MD Primary Care Provider + [phone] Encounter Details Date Type Department Care Team (Late st Contact Info) Description 05/09/2018 Orders Only [facility], Diabetes and Metabolism [address] [place] [address] Pawan Ram MD [address] [place] [address] Type 1 diabetes mellitus with ketoacidosis without [...] Primary documented in this encounter Care Teams Director Video Relationship Specialty Start Date End Date Jolanta Freeman MD PCP - General Pediatrics 05/24/13 documented as of this encounter
--- OUTSIDE RECORDS SUMMARY | 2024-05-10 18:53 | XMS_ITS | Encounter Summary ---
Author Organization [employer] Care Team Providers Care Formstone Fitter Name Role Phone Carrie Joseph Primary Care Provider [phone] Naomi Sanches MD Unavailable Encounter Details Date Type Department Care Team (Latest Contact Info) Description 12/02/2023 Travel Social History Tobacco Use Types Packs/Day Years Used Date Smoking Tobacco: Never Smokeless Tobacco: Never Alcohol Use Standard Drinks/Week Comments Yes 0 (1 standard drink = 0.6 oz pur e alcohol) rare Sexually Active Control Partners Comments Yes Male Comments No Sex and Gender Information Value Date Recorded Sex Assigned at Not on file Legal Sex Female 7:18 PM CDT Gender Identity Not on file Sexual Orientation Not on file documented as of this encounter Plan of Treatment Not on file documented as of this encounter Visit Diagnoses Not on filedocumented in this encounter Care Teams Formstone Fitter Relationship Specialty Start Date End Date Carrie Joseph PA [address] [place], [place] [id number] PCP - General Adult Medicine 11/11/18 Naomi Sanches MD [address] [address] Consulting Physician Endocrinology 05/21/20 documented as of this encounter
--- OUTSIDE RECORDS SUMMARY | 2024-05-10 18:53 | XMS_ITS | Encounter Summary ---
Author Organization [facility] Address [address] [facility] [place] [address] Phone Care Team Providers Care Administrative Judge Name Role Phone Carrie Joseph Primary Care Provider [phone] Naomi Sanches MD Unavailable Reason for Visit * Reason Onset Date Comments Need Order 06/04/2022 Encounter Details Date Type Department Care Team (Late st Contact Info) Description 06/04/2022 Telephone [facility] - Endocrinology - [place] [address] [place] [address] Naomi Sanches MD [address] [address] Need Order Social History Tobacco Use Types Packs/Day Years [...] Exposure Response Date Recorded In the last 10 days, have yo u been in contact with someone who was confirmed or suspected to have Coronavirus/COVID-19? No / Unsure 05/22/2022 2:10 PM CARDIAC MONITOR documented as of this encounter Miscellaneous Notes * Telephone Encounter - Naomi Sanches MD - 06/04/2022 1:49 PM CST Rx of Humalog vial sent IAC MONITOR * Telephone Encounter - Charisma Carrington RN - 06/04/2022 1:10 PM CARDIAC MONITOR Patient needs a prescription for Humalog U100 vials for her insulin pump. Please advise? IAC MONITOR documented in this encounter Plan of Treatment Not on file documented as of this encounter Visit Diagnoses Not on filedocumented in this encounter Care Teams Administrative Judge Relationship Specialty Start Date End Date Carrie Joseph PA [address] [address] PCP - General Adult Medicine 11/11/18 Naomi Sanches MD [address] [phone] Consulting Physician Endocrinology 05/21/20 documented as of this encounter
--- OUTSIDE RECORDS SUMMARY | 2024-05-10 18:53 | XMS_ITS | Encounter Summary ---
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 subcutaneous insulin. Interval History Ms. Menjivar is doing well. She reports no abdominal pain, nausea, vomiting, or problems tolerating food. She reports being compliant with her medications and cites having a UTI that led to her DKA. She also reports being stressed, which she reports as a contributing factor. She has had trouble with the father of her child and work. She knows of therapy resources in her area of residence (provided by OSH) and says she would not like to speak to anyone here. Her ROS are negative, PE unremarkable, labs show closed anion gap. Scheduled Medications: enoxaparin 40 mg Subcutaneous QDAY AT 0600 [START ON 11/30/2017] insulin glargine 10 Units Subcutaneous QDAY insulin aspart 0.08 Units/kg Subcutaneous TID WC insulin aspart 0-12 Units Subcutaneous TID WC Infusions: PRN Meds: glucose (Diabetic Use) ??? dextrose ??? glucagon ??? glucose (Diabetic Use) ??? dextrose ??? glucagon Objective: Temp: [98.3 ??F (36.8 ??C)-98.8 ??F (37.1 ??C)] 98.8 ??F (37.1 ??C) Pulse: [74-124] 113 Resp: [10-25] 21 BP: (88-133)/(50-92) 125/84Weight change: Intake/Output Summary (Last 24 hours) at 11/29/17 1726 Last data filed at 11/29/17 0800 Gross per 24 hour Intake 510 ml Output 400 ml Net 110 ml GEN No acute distress. HEENT NCAT, PERRL. Sclera anicteric. NECK Supple, no JVD CHEST CTAB HEART RRR, Normal S1, S2. No murmurs/rubs/gallops. ABD Soft, NT, ND, +BS. EXT No clubbing, cyanosis or edema. NEURO Alert, oriented x3, appropriately interactive. No focal neurologic deficits. Data Review Recent Labs Component Name 11/29/17 0402 11/28/17 2229 WBC 6.9 7.4 HGB 10.5* 12.4 HCT 30.7* 36.0 PLT 318 377 MCV 80.4* 80.9* Recent Labs Component Name 11/29/17 0827 11/29/17 0604 11/29/17 0402 CALCIUM 8.0* 7.7* 7.6* PHOS 2.1* 1.4* 2.2* Recent Labs Component Name 11/29/17 0827 11/29/17 0604 11/29/17 0402 NA 134* 136 131* CL 105 109* 105 CO2 19* 18* 17* BUN 6* 6* 7 CREATININE 0.4* 0.4* 0.4* GLU 115 124* 220* Recent Labs Component Name 11/28/172228 PROT 5.8* ALB 3.5 ALKPHOS 66 AST 9 ALT 6 TBILI 0.8 Calcium (11/29): 8 L (no recent albumin for corrected calcium) Recent Labs Component Name 11/28/172228 PT 14.4 INR 1.1 PTT 25.2 No results for input(s): CKTOTAL, CKMBCK2, TROPONINI in the last 23496 hours. Glucose: (11/29): 131, 179, 169 (most recent) Phosphorus 2.1 L (stable at this #) Cortisol (11/29) ranged 1.3-28.7 TSH (11/28): normal 0.727 Tox screen: negative UA (11/29): negative Radiology Xr Chest 1vw Portable Result Date: 11/29/2017 Impression: No acute pulmonary process. . Microbiology Microbiology Results (Displays last 21 days for this encounter ONLY) Procedure Component Value - Date/Time CULTURE BLOOD [[id number]] Collected: 11/28/172229 Lab Status: In process Specimen: Blood from Blood Peripheral Updated: 11/28/172236 CULTURE BLOOD [[id number]] Collected: 11/28/172228 Lab Status: In process Specimen: Blood from Blood Peripheral Updated: 11/28/172236 CULTURE URINE [[id number]] Collected: 11/28/172147 Lab Status: In process Specimen: Urine from Urine Clean Catch Updated: 11/28/172237 Assessment and Plan: #DKA: Patient reported UTI at OSH. OSH's reports: UA with clean catch sample: trace leukocyte esterase and 10-15WBC, urine, culture showed only GBS likely contaminant/colonizer, slight probability ofcontributing to DKA. OSH hospital mentioned hx of multiple previous DKA admissions for medicine non-compliance. Patient reports being compliant with mediations and that not being a problem for last few years. 1. Diabetes Education received #Type 1 Diabetes: A1C 9.7, reports being compliant with medications. Home meds: Lantus 10U and Humalog SSI 0-100U 1. Lantus 10U, Novolog 5U, SSI: 0-12U, consider increasing to 15U based on glucose reading tomorrow 2. Endocrine consult tomorrow # Possible central adrenal insuffiency: low random cortisol, ACTH levels pending pending. -Cortisol 4am low at 1.3 then in response to cosyntropin, elevated to 27.8, responded appropriately, concern for central deficiency of ACTH -Primary adrenal insufficiency is unlikely given appropriate response to ACTH and increased production of cortisol from the adrenals, and her low/ normal potassium. Her sodium has some times been low/ normal, but could be 2/2 to DKA, fluid overload, etc -Exogenous cortisol use is also a potential cause of low cortisol production, but patient denies being on any steroids. -Panhypopituitarism: r/o, ROS was negative 1. ACTH levels pending 2. Consult endocrine tomorrow #Psychosocial Stressors. Patient with multiple psychosocial stressors related to father of baby andstressors. Patient states she has been provided with resources for therapy at OSH and would not like any here. F/E/N F: none E: replete prn N: Lines: PIV Prophylaxis: enoxaparin injection 40mg Code status: TSL-1 Dispo: inpatient, PT/OT Melvin Heath MS4 * Catarina Gonsalez - 11/29/2017 3:43 PM CDT Oil Well Service Operator Helper made introductory visit. Patient indicated that she is fine and there are not pastoral care needs at this time. Oil Well Service Operator Helper let her know that pastoral care is available as needed. [id number] Catarina Sunshine 11/29/2017 3:44 PM 11/29/17 1500 11/29/17 1501 Visit Type Assessment Date 11/29/17 -- Oil Well Service Operator Helper Visiting Patient Sunshine -- Pastoral Care Visit Type Initial Visit Intensive Care Encounter Type Patient -- * Iesha Leonard DO - 11/29/2017 1:18 PM CDT Plan of Care Karina Menjivar is a 22 yo female with PMH type I diabetes, transferred from OSH for DKA management. This morning, nausea has resolved, patient eating and drinking normally. She was on an insulin drip overnight, however it was discontinued this morning and we have continued her home insulin regimen. VSS stable. Anion gap is now closed. Plan: #DKA: now resolved, anion gap is closed. Initially may have been related to medication noncompliance vs gastroparesis. Patient endorses compliance with her medications and says her glucose is normally controlled in the 100s at home. #Type 1 diabetes: Continue home regimen of lantus 10 units at bedtime, novolog 5 units with meals plus insulin sliding scale #Possibly adrenal insufficiency: low random cortisol, follow up results of cortisol stimulation test #Nausea: currently resolved and eating normal diet. If nausea persists, consider gastroparesis workup. Iesha Leonard DO 11/29/2017 1:28 PM documented in this encounter H&P Notes * Lucas Carrera MD - 11/29/2017 2:28 AM CDT MICU History and Physical 11/29/2017 2:29 AM Patient: Karina Menjivar Room: 837/837- Admit Date: 11/28/2017 Length of Stay: 1 CC: Nausea HPI: Karina Menjivar is a 22 y.o. female with PMH significant for type I diabetes who was transferred from an OSH for DKA management. Patient developed nausea and vomiting and presented to [facility] on 11/25, was found to be on DKA, remained hospitalized on insulin drip and was discharged, later the same day patient was unable to tolerate food or fluids and returned to same hospital. Was found hemodynamically stable, labs showed glucose 249, AG 23 and rest unremarkable, received IVF, insulin drip and was sent to [facility] for difficult to control DKA. Patient denied fever,recent upper resp infection, chest pain, shortness of breath, dysuria or other. States adequate compliance with insulin, at home on Lantus 10 units and sliding scale with meals, although OSH mention multiple DKA admissions for medication non compliance. On admission patient was alert and oriented, asymptomatic, glucose 70, AG 17, B- HO 6 and potassium 2.8. Review of Systems Positives in bold Constitutional: fevers, chills, sweats, fatigue, weight loss/gain, chronic pain HEENT: head trauma, vision/hearing/voice changes, eye/ear/throat pain Respiratory: cough, shortness of breath, hemoptysis, sputum Cardiovascular: chest pain/discomfort, dyspnea on exertion, orthopnea, PND, palpitations Gastrointestinal: nausea/vomiting, diarrhea, constipation, melena, abdominal pain Genitourinary: dysuria, urgency, frequency, incontinence, hematuria Integument: rash, ulcers, itching Hematologic/lymphatic: easy bruising, bleeding Musculoskeletal: myalgias, arthralgias Neurological: headaches, dizziness, numbness, tingling, seizures Behavioral/Psych: anxiety, depression, memory problems Endocrine: polyuria, polydipsia, polyphagia, heat/cold intolerance Past Medical History: Diagnosis Date ??? Diabetes Diagnosed at age 12 ??? DKA (diabetic ketoacidoses) ??? IUD contraception Surgical History None Family History None remarkable on maternal side of family Unknown paternal Social History: Social History Social History ??? Marital status: Single Spouse name: N/A ??? Number of children: N/A ??? Years of education: N/A Occupational History ??? Not on file. Social History Main Topics ??? Smoking status: Never Smoker ??? Smokeless tobacco: Never Used ??? Alcohol use Yes Comment: occasional ??? Drug use: No ??? Sexual activity: Not on file Other Topics Concern ??? Not on file Social History Narrative ??? No narrative on file Allergies: No Known Allergies Prior to Admission medications Medication Sig Start Date End Date Taking? Authorizing Provider insulin lispro (HUMALOG) 100 UNIT/ML vial Pt specific sliding scale based off diet Yes Provider, MD Marie insulin glargine (LANTUS) vial Inject 10 Units subcutaneously at bedtime Yes Provider, MD Marie No Known Allergies Scheduled meds: enoxaparin 40 mg Subcutaneous QDAY AT 0600 potassium chloride 40 mEq Intravenous Once PRN meds: insulin regular human ??? glucose (Diabetic Use) ??? dextrose ??? glucagon Infusions: insulin regular human (humuLIN R; novoLIN R) 100 units in 100 mL infusion 0-26.5 Units/hr dextrose 5 % and 0.45% NaCl Last Rate: 125 mL/hr at 11/28/17 2340 Objective: Vitals: 11/28/17 2300 11/29/17 0000 11/29/17 0100 11/29/17 0200 BP: 126/80 133/92 114/71 101/66 Pulse: 96 102 86 88 Resp: Temp: 98.7 ??F (37.1 ??C) SpO2: 100% 100% 100% 100% Weight: Intake/Output Summary (Last 24 hours) at 11/29/17 0229 Last data filed at 11/28/17 2100 Gross per 24 hour Intake 0 ml Output 400 ml Net -400 ml GENERAL: No apparent distress. AO x3/3. HEENT: Head is normocephalic and atraumatic. EOM intact. PEERL. CARDIOVASCULAR: Regular rate and rhythm, no murmurs. LUNGS: Clear to auscultation, bilaterally ABDOMEN: Soft, nontender, and nondistended. Positive bowel sounds. EXTREMITIES: Without cyanosis, clubbing, lesions or edema. NEUROLOGIC: No focal findings. Nml sensation and strength in upper and lower extremities grossly. Data Review Recent Labs Component Name 11/28/172228 NA 136 CL 105 CO2 15* BUN 10 CREATININE 0.4* GLU 101 CALCIUM 8.4 PHOS 2.1* PROT 5.8* ALB 3.5 ALT 6 AST 9 ALKPHOS 66 TBILI 0.8 Recent Labs Component Name 11/28/172228 RBC 4.45 HGB 12.4 HCT 36.0 MCV 80.9* WBC 7.4 PLT 377 Recent Labs Component Name 11/28/172228 PT 14.4 INR 1.1 PTT 25.2 Lab results smartLinks are not currently available Microbiology: Blood culture Urine culture Imaging: CXR - no pulmonary process Assessment and Plan Active Problems: Type 1 diabetes mellitus with ketoacidosis without coma ?? DKA Recently admitted at [facility], transferred for difficult to control AG elevated on admission (17), glucose 70 and complicated with hypokalemia Precipitant event : most likely medication non compliance + underlying gastroparesis? - Replete potassium before starting insulin - D5 half NS IVF - Insulin ggt - Keep npo until gap closed and insulin transitioned to sc - Check A1c ?? Persistent nausea Could be only due to DKA Should also consider polyglandular syndrome w/ now Adrenal Insuffiencey Vs Gastroparesis secondary to uncontrolled diabetes - Consider metoclopramide trial - Check Cortisol to r/o AI Lines: PIV Prophylaxis: Enoxaparin Diet: NPO Activity: As tolerated Code status: TSL-1 Disposition: CLAIRE Carrera MD 11/29/2017 2:29 AM q Associated attestation - Enrrique Ulrich MD - 11/29/2017 1:32 PM CDT Attending Physician Supervisory Note I personally interviewed and examined the patient and agree with the doctor above. The patient is 22 year old female with h/o DM admitted with DKA. Started on insulin drip- anion gap closed. Switched to subcutaneous insulin. Etiology of DKA- ? Non compliance. Patient Vitals for the past 6 hrs: Temp Pulse Resp BP 11/29/17 1300 - 90 19 126/75 11/29/17 1200 98.3 ??F (36.8 ??C) (!) 124 25 - 11/29/17 1100 - 81 19 99/62 11/29/17 1000 - 86 19 88/50 11/29/17 0900 - 95 16 - 11/29/17 0800 - 91 17 119/91 . General appearance: awake , alert no distress Eyes: PERRL, EOMI HENT: neck supple, no jvd Heart: regular rhythm, no murmurs. Lungs: cta b/l Abdomen: soft without mass, non-tender, with normal bowel sounds Extremities: no clubbing, cyanosis or edema Neuro: awake, communicating and following commands, MAIN Skin: no rashes Assessment: DKA- resolving. Plan: Continue subcutaneous home dose of lantus. Hemoglobin A1c- 9.7- ? compliance Vs. Subtherapeutic dosing. Endo consult Transfer to floor.. Enrrique Ulrich MD documented in this encounter Consult Notes * Radha Mccann MD - 11/30/2017 1:03 PM CDT [facility] Inpatient Endocrinology Consultation Karina Menjivar Age: 22 y.o. Date of : 1995 Date of Admission: 11/28/2017 Reason for consult: Diabetes Requesting physician Red team Level of consult: Consult and follow for daily recommendations Chief Complaint: Nausea and vomiting HPI Karina Menjivar is a 22 y.o. female with PMH of T1DM was transferred from OSH ([facility]) for management of DKA She was admitted in [facility] from 11/23 - 11/27 with symptoms of nausea, vomiting and was found to be in DKA. She was treated with IV insulin and IV fluids and got discharged on 11/27. Post discharge, she could not tolerate oral intake and was brought in again to the hospital. At that time, BG 249, AG 23, started on insulin infusion and IV fluids and on patient's request was transferred to [facility] On admission to [facility], BG 101, BHB 6.03, AG 19, K 2.9, HCO3 15, A1c 9.7, Cr 0.4. Was on insulin infusion from 11/28 - 11/29 until 9.35am. Had appropriate transition from insulin drip to basal - bolus regimen. Currently on Lantus 10U daily and novolog 5U with meals and SSI 2U - 50 > 150. BG 160 - 270 Since pt was hyponatremic, checked for TSH 0.727, am cortisol 17.8 (30 min - 27.8) T1DM Dx at age 12 Had 6 - 7 episodes so far. Most of them happened in last 3 years No complications Was previously seen by [facility], Dr. Manzano (not following currently due to change in insurance) Home regimen Lantus 10U QPM Humalog I : C = 1 : 8 and SSI 1U - 50 > 150 (Approximately uses 6-7U with meals but of late has poor appetite and no eating much and is not taking humalog frequently) Last A1C - 9.7% ?? BG at home x 3 Fasting 100 -150 Bed time - high 100's ?? Symptoms- No polyuria/polydipsia, fatigue,nocturia No Nightmares/night sweats/am headaches Hypoglycemic symptoms/episodes - Rare, once a month Has HG awareness Exercise- No ?? Medication Compliance - good Last eye exam - 01/2017 - no Retinopathy No Neuropathy Past Medical History: Past Medical History: Diagnosis Date ??? Diabetes Diagnosed at age 12 ??? DKA (diabetic ketoacidoses) ??? IUD contraception Past Surgical History: No past surgical history on file. Social History: Social History Social History ??? Marital status: Single Spouse name: N/A ??? Number of children: N/A ??? Years of education: N/A Occupational History ??? Not on file. Social History Main Topics ??? Smoking status: Never Smoker ??? Smokeless tobacco: Never Used ??? Alcohol use Yes Comment: occasional ??? Drug use: No ??? Sexual activity: Not on file Other Topics Concern ??? Not on file Social History Narrative ??? No narrative on file Family History: Mom healthy Unknown paternal Hx Immunizations: There is no immunization history on file for this patient. Allergies: No Known Allergies Medications: Current Facility-Administered Medications Medication ??? enoxaparin (LOVENOX) injection 40 mg ??? glucose (Diabetic Use) oral gel ??? dextrose IV 12.5-25 g ??? glucagon (GLUCAGEN) injection 1 mg ??? insulin glargine (LANTUS) pen 10 Units ??? insulin aspart (NovoLOG) pen 5 Units ??? insulin aspart (NovoLOG) pen 0-12 Units ??? glucose (Diabetic Use) oral gel ??? dextrose IV 12.5-25 g ??? glucagon (GLUCAGEN) injection 1 mg I have reviewed all medications. Review of Systems: Constitutional: negative for fevers Respiratory: negative for cough, SOB Cardiovascular: negative for palpitations, chest pain, chest pressure/discomfort, dyspnea Gastrointestinal: negative for nausea, vomiting, abdominal pain Genitourinary: negative for dysuria, urinary incontinence Musculoskeletal: negative for stiff joints, neck pain and muscle weakness Neurological: negative for headaches, weakness, dizziness Endocrine: + hyperglycemia, no polyuria, weight gain or weight loss Skin: negative for cyanosis or discoloration Psych: negative for anxiety, negative for depression. Physical Exam: Appearance: Alert and oriented Head: normocephalic, no deformity Eyes: Conjunctiva/lids WNL and EOM Intact ENT, Mouth: Lips/teeth/gums WNL, Hearing WNL Neck: No thyroid nodule or enlargement. Resp.:Effort nonlabored and clear to auscultation CVS: S1, S2; no murmurs, pulse wnl GI/Abd: soft. Extremities: No pedal edema Skin: No rashes/lesions/ulcers and skin normal texture and turgor. Neuro: Non-focal. Normal reflexes. Normal monofilament test Psych: Judgement/insight WNL, Oriented X 3, Memory WNL and Mood/affect WNL Data: Results for KARINA MENJIVAR ( ) as of 11/30/2017 18:13 Ref. Range 11/29/2017 17:17 11/30/2017 03:31 Glucose Latest Ref Range: 70 - 115 mg/dL 160 (H) 211 (H) BUN Latest Ref Range: 7 - 26 mg/dL 3 (L) 5 (L) Creatinine Latest Ref Range: 0.6 - 1.2 mg/dL 0.7 0.3 (L) BUN/Creatinine Ratio Latest Ref Range: 7 - 23 4 (L) 17 Sodium Latest Ref Range: 136 - 145 mmol/L 139 131 (L) Potassium Latest Ref Range: 3.5 - 4.5 mmol/L 4.4 3.4 (L) Chloride Latest Ref Range: 98 - 107 mmol/L 102 97 (L) Carbon Dioxide Latest Ref Range: 22 - 29 mmol/L 11 (L) 25 ANION GAP Latest Ref Range: 8 - 18 30 (H) 12 Calcium Latest Ref Range: 8.4 - 10.2 mg/dL 8.2 (L) 8.7 Albumin Latest Ref Range: 3.4 - 5.0 g/dL 3.2 (L) PHOSPHOROUS Latest Ref Range: 2.3 - 4.7 mg/dL 3.1 eGFR Latest Ref Range: >60 mL/min/1.73 m2 >60 >60 Osmolality Calc Latest Ref Range: 270 - 300 mOsm/kg 288 276 Results for KARINA MENJIVAR ( ) as of 11/30/2017 18:13 Ref. Range 11/28/2017 22:29 11/29/2017 04:02 11/29/2017 08:27 11/29/2017 09:08 11/29/2017 09:08 ACTH Latest Ref Range: 7.2 - 63.3 pg/mL 30.1 CORTISOL AM Latest Ref Range: 3.7 - 19.4 mcg/dL 1.3 (L) 17.8 27.8 (H) 28.7 (H) Hemoglobin A1c Latest Ref Range: 4.4 - 6.3 % 9.7 (H) Estimated average glucose Latest Units: mg/dL 232 TSH Latest Ref Range: 0.350 - 4.940 uIU/mL 0.727 Results for KARINA MENJIVAR ( ) as of 11/30/2017 18:13 Ref. Range 11/30/2017 03:31 WBC Latest Ref Range: 3.5 - 10.5 10??3/uL 6.6 RBC Latest Ref Range: 3.90 - 5.00 10??6/uL 4.24 Hemoglobin Latest Ref Range: 12.0 - 15.5 g/dL 11.9 (L) HEMATOCRIT Latest Ref Range: 35.0 - 45.0 % 34.0 (L) MCV Latest Ref Range: 81.0 - 97.0 fL 80.2 (L) MCH Latest Ref Range: 28.0 - 34.0 pg 28.1 MCHC Latest Ref Range: 32.0 - 36.0 g/dL 35.0 PLATELET ([facility]) Latest Ref Range: 150 - 400 10??3/uL 324 RDW (SD) Latest Ref Range: 36.0 - 50.0 fL 39.0 RDW Latest Ref Range: 11.2 - 14.8 % 13.4 MPV Latest Ref Range: 9.3 - 12.8 fL 8.7 (L) Results for KARINA MENJIVAR ( ) as of 11/30/2017 18:13 Ref. Range 11/29/2017 18:40 11/29/2017 20:12 11/30/2017 02:25 11/30/2017 07:20 11/30/2017 11:04 GLUCOSE Latest Ref Range: 70 - 115 mg/dL 158 (H) 168 (H) 205 (H) 204 (H) 271 (H) Results XR CHEST 1VW PORTABLE [[id number]] ( (Order [id number]) ?? RESULTS REPORT - PRINT FROM THIS HYPERLINK (QUICK DISCLOSURE REQUIRED) ? Print/Route Result Report ? Final ?? STUDY TEXT Exam: XR CHEST 1VW PORTABLE ?? Date: 11/28/2017 10:22 PM ?? History: dka ?? Comparison: No prior study is available for comparison. ?? Findings: There is no focal consolidation, pleural effusion, or pneumothorax. The cardiomediastinal silhouette is normal. The visible bony thorax is intact. ? Impression: No acute pulmonary process. Assessments and Recommendations: Karina Menjivar is a 22 y/o female with PMH of T1DM was transferred from OSH for DKA management Endocrinology was consulted for management of diabetes Patient was discharged within few hours of the consult and was not seen by the attending. Head Correction Officer saw the patient and scheduled an out patient follow up in [facility] Endocrinology clinic in Jan 2018. Patient was discharged on Lantus 12U and home dose SSI per primary team Dr. Ram was notified about the patient Radha Mccann MD Endocrine Fellow Associated attestation - Pawan Ram MD - 12/02/2017 6:35 PM CDT Seen and examined,reviewed and confirmed with house staff evaluation and note. See progress note. * Trixie Harrison RN - 11/29/2017 6:02 PM CDTAssociated Order(s): IP CONSULT TO SINGLE CORNER CUTTER Inpatient Test Center Manager Note Today's Date: 11/29/17 Karina Menjivar is a 22 y.o. female currently hospitalized for DIABETIC KETOACIDOSIS. A consult withDiabetes Education was requested by treatment team due to high A1c and DKA Diagnosis of Diabetic Ketoacidosis (DKA). Karina's primary diabetes diagnosis: diabetes mellitus Type 1. . She reports that she has been under a lot of stress lately. Has a one year old child and father makes things difficult . The pt reports a strong support system but has been feeling overwhelmed lately. On further questioning admits to feeling depressed. She is willing to talk to psychiatry and willing to take part in counseling. Has [employer] insurance only. Would also like to follow up with our endocrinology clinic h ere. Will contact clinic for an appt. Today, her glucose is 179 at 1130 and gap is closed. Still not able to eat, stating that things don't take right . Noel reports that she has not been eating lately due to feeling stressed. Encouraged to eat smaller meals or snacks even if she does not eat a lot, and use sliding scale for those times. Conveys understanding. Current Hospitalization Concerns: DKA Recent Labs: Pertinent labs were reviewed. A1c 9.7 Participant Reported Labs/Blood Glucose Control: Patient-reported A1C (%): 9.7 Compliance With Medications: Education/Support: Education efforts focused on disease process and treatment options, incorporating nutritional management into lifestyle, using medication(s) safely and for maximum therapeutic effectiveness, hypoglycemia - preventing, detecting, and treating acute complications, hyperglycemia - preventing, detecting, and treating acute complications, sick day management - preventing, detecting, and treating acutecomplications and psychosocial issues and concerns - developing personal strategies. Karina's overall adherence potential is assessed as follows: Comprehension: often demonstrated Receptivity: sometimes demonstrated Adherence: sometimes demonstrated Thank you for the opportunity to participate in your patient's care. Trixie Harrison, fleet service clerk documented in this encounter Plan of Treatment Not on file documented as of this encounter Procedures Procedure Name Priority Date/Time Associated Diagnosis Comments CARDIAC PROCEDURE ORDER 03/16/20 18 8:28 AM ASSOCIATE CARDIAC EKG ORDER 12/06/2017 9:5 4 AM CDT GLUCOSE - POINT OF CARE Routine 12/01/19 18 11:04 AM CDT GLUCOSE - POINT OF CARE Routine 12/01/19 18 7:20 AM CDT CBC W/O DIFFERENTIAL Routine 11/30/2017 3:31 AM CDT BASIC METABOLIC PANEL (CALCIUM TOTAL) Routine 11/30/2017 3:31 AM CDT PHOSPHORUS BLOOD Routine 11/30/2017 3:31 AM CDT ALBUMIN BLOOD AM Draw 11/30/2017 3:31 AM CDT GLUCOSE - POINT OF CARE Routine 12/01/19 18 2:25 AM CDT GLUCOSE - POINT OF CARE Routine 11/30/19 18 8:12 PM CDT GLUCOSE - POINT OF CARE Routine 11/30/19 18 6:40 PM CDT GLUCOSE - POINT OF CARE Routine 11/30/19 18 5:22 PM CDT BASIC METABOLIC PANEL (CALCIUM TOTAL) Routine 11/29/2017 5:17 PM CDT GLUCOSE - POINT OF CARE Routine 11/30/19 18 11:58 AM CDT GLUCOSE - POINT OF CARE Routine 11/30/19 18 9:10 AM CDT CORTISOL BLOOD AM Timed 11/29/2017 9:0 8 AM CDT CORTISOL BLOOD AM Timed 11/29/2017 9:0 8 AM CDT ACTH Routine 11/29/2017 8:27 AM CDT BASIC METABOLIC PANEL (CALCIUM TOTAL) Routine 11/29/2017 8:27 AM CDT PHOSPHORUS BLOOD Routine 11/29/2017 8:27 AM CDT CORTISOL BLOOD AM Timed 11/29/2017 8:2 7 AM CDT GLUCOSE - POINT OF CARE Routine 11/30/19 18 8:25 AM CDT GLUCOSE - POINT OF CARE Routine 11/30/19 18 7:33 AM CDT GLUCOSE - POINT OF CARE Routine 11/30/19 18 6:57 AM CDT BASIC METABOLIC PANEL (CALCIUM TOTAL) Routine 11/29/2017 6:04 AM CDT PHOSPHORUS BLOOD Routine 11/29/2017 6:04 AM CDT GLUCOSE - POINT OF CARE Routine 11/30/19 18 6:03 AM CDT GLUCOSE - POINT OF CARE Routine 11/30/19 18 5:02 AM CDT GLUCOSE - POINT OF CARE Routine 11/30/19 18 4:02 AM CDT CBC W/O DIFFERENTIAL Routine 11/29/2017 4:02 AM CDT BASIC METABOLIC PANEL (CALCIUM TOTAL) Routine 11/29/2017 4:02 AM CDT PHOSPHORUS BLOOD Routine 11/29/2017 4:02 AM CDT MAGNESIUM BLOOD Routine 11/29/2017 4:02 AM CDT CORTISOL BLOOD AM Routine 11/29/2017 4:0 2 AM CDT GLUCOSE - POINT OF CARE Routine 11/30/19 18 1:51 AM CDT GLUCOSE - POINT OF CARE Routine 11/29/19 18 11:17 PM CDT CULTURE BLOOD Timed 11/28/2017 10:30 PM CDT PTT SLH STAT 11/28/2017 10:29 PM CDT PT-INR SLH STAT 11/28/2017 10:29 PM CDT HYDROXYBUTYRATE BETA Routine 11/28/2017 10:29 PM CDT HEMOGLOBIN A1C LUPE 11/28/2017 10:29 PM CDT CULTURE BLOOD Timed 11/28/2017 10:29 PM CDT DIFFERENTIAL MANUAL STAT 11/28/2017 1 0:29 PM CDT CBC W AUTO DIFFERENTIAL STAT 11/29/19 18 10:29 PM CDT COMPREHENSIVE METABOLIC PANEL STAT 11/28/2017 10:29 PM CDT PHOSPHORUS BLOOD STAT 11/28/2017 10:2 9 PM CDT MAGNESIUM BLOOD STAT 11/28/2017 10:29 PM CDT LIPASE BLOOD STAT 11/28/2017 10:29 PM CDT LACTIC ACID BLOOD STAT 11/28/2017 10: 29 PM CDT ALCOHOL ETHYL BLOOD Routine 11/28/2017 1 0:29 PM CDT TSH Routine 11/28/2017 10:29 PM CDT XR CHEST 1VW PORTABLE STAT 11/28/2017 10:22 PM CDT Type 1 diabetes mellitus with ketoacidosis without coma (HCC) URINALYSIS REFLEX TO MICROSCOPIC NO CULTURE STAT 11/28/2017 9:48 PM CDT CULTURE URINE Routine 11/28/2017 9:48 PM CDT URINE DRUG SCREEN IMMUNOASSAY Routine 11/28/2017 9:48 PM CDT EKG 12-LEAD STAT 11/28/2017 9:38 PM CDT Type 1 diabetes mellitus with ketoacidosis without coma (HCC) GLUCOSE - POINT OF CARE Routine 11/29/19 18 8:58 PM CDT documented in this encounter Results * CARDIAC PROCEDURE ORDER (03/16/2018 8:28 AM ASSOCIATE) Narrative 03/16/2018 8:28 AM ASSOCIATE Ordered by an unspecified provider. Scanned Document CARDIAC SERVICES ORD ERABLES * CARDIAC EKG ORDER (12/06/2017 9:54 AM CDT) Narrative 12/06/2017 9:54 AM CDT Ordered by an unspecified provider. Scanned Document CARDIAC SERVICES ORD ERABLES * (ABNORMAL) GLUCOSE - POINT OF CARE (11/30/2017 11:04 AM CDT) Glucose WB/POC 271(H) 70 - 115 mg/dL 11/30/2017 11:24 AM CDT [facility] Specimen Type Arterial/C apillary 11/30/2017 11:24 AM CDT [facility] Blood BLOOD SPECIMEN / Unknown 11/30/2017 11:04 AM CDT 11/30/2017 11:24 AM CDT [facility] - 11/30/2017 11:24 AM CDT [employer]pper: GEORGE ??MELINDA Tony Bo MD LAB - POINT OF CARE ORDERABLES Performing Organization Address City/State/[facility] Co de Phone Number [address] [phone] * (ABNORMAL) GLUCOSE - POINT OF CARE (11/30/2017 7:20 AM CDT) Glucose WB/POC 204(H) 70 - 115 mg/dL 11/30/2017 7:34 AM CDT [facility] Specimen Type Arterial/C apillary 11/30/2017 7:34 AM CDT [facility] Blood BLOOD SPECIMEN / Unknown 11/30/2017 7:20 AM CDT 11/30/2017 7:34 AM CDT [facility] - 11/30/2017 7:34 AM CDT [employer] Weather Stripper: ADALGISA ??LAURA Lewis Garcia MD LAB - POINT OF [place] RE ORDERABLES [facility] [address] [place] [address] * PHOSPHORUS BLOOD (11/30/2017 3:31 AM CDT) [facility] Phosphorus 3.1 2.3 - 4.7 mg/dL 11/30/2017 4:19 AM [facility] Blood BLOOD SPECIMEN / Unknown Lab Venipuncture / Unknown 11/30/2017 3:31 AM CDT 11/30/2017 3:57 AM CDT Armando Hair MD LAB - CHEMISTRY ORDERABLES [address] [phone] * (ABNORMAL) BASIC METABOLIC PANEL (CALCIUM TOTAL) (11/30/2017 3:31 AM CDT) [facility] BUN 5(L) 7 - 26 mg/dL 11/30/2017 4:25 AM [facility] Creatinine 0.3(L) 0.6 - 1.2 mg/dL 11/30/2017 4:25 AM [facility] Comment:Consistant with prio r values. Sodium 131(L) 136 - 145 mmol/L 11/30/2017 4:25 AM [facility] Comment:Consistant with prio r values. Potassium 3.4(L) 3.5 - 4.5 mmol/L 11/30/2017 4:25 AM [facility] Chloride 97(L) 98 - 107 mmol/L 11/30/2017 4:25 AM [facility] CO2 25 22 - 29 mmol/L 11/30/2017 4:25 AM [facility] Comment:Consistant with prio r values. Glucose 211(H) 70 - 115 mg/dL 11/30/2017 4:25 AM [facility] Calcium 8.7 8.4 - 10.2 mg/dL 11/30/2017 4:25 AM [facility] Anion Gap 12 8 - 18 11/30/2017 4:25 AM [facility] BUN/Creatinine Ratio 17 7 - 23 11/30/2017 4:25 AM [facility] Osmolality Calculated 276 270 - 300 mOsm/kg 11/30/2017 4:25 AM [facility] eGFR >60 >60 mL/min/1.7 3 m2 11/30/2017 4:25 AM [facility] Blood BLOOD SPECIMEN / Unknown Lab Venipuncture / Unknown 11/30/2017 3:31 AM CDT 11/30/2017 3:57 AM CDT Armando Hair MD LAB - CHEMISTRY ORDERABLES [facility] [address] [phone] * (ABNORMAL) CBC W/O DIFFERENTIAL (11/30/2017 3:31 AM CDT) WBC 6.6 3.5 - 10.5 10? 3 /uL 11/30/2017 4:06 AM [facility] RBC 4.24 3.90 - 5.00 10? 6 /uL 11/30/2017 4:06 AM [facility] Hemoglobin 11.9(L) 12.0 - 15.5 g/dL 11/30/2017 4:06 AM [facility] Hematocrit 34.0(L) 35.0 - 45.0 % 11/30/2017 4:06 AM [facility] MCV 80.2(L) 81.0 - 97.0 fL 11/30/2017 4:06 AM [facility] MCH 28.1 28.0 - 34.0 pg 11/30/2017 4:06 AM [facility] MCHC 35.0 32.0 - 36.0 g/dL 11/30/2017 4:06 AM [facility] Platelet Count 324 150 - 400 10? 3 /uL 11/30/2017 4:06 AM [facility] RDW-SD 39.0 36.0 - 50.0 fL 11/30/2017 4:06 AM [facility] RDW-CV 13.4 11.2 - 14.8 % 11/30/2017 4:06 AM CDT [facility] MPV 8.7(L) 9.3 - 12.8 fL 11/30/2017 4:06 AM CDT [facility] Blood BLOOD SPECIMEN / Unknown Lab Venipuncture / Unknown 11/30/2017 3:31 AM CDT 11/30/2017 3:57 AM CDT Lucas Carrera MD LAB - HEMATOLOGY ORDERABLES Performing Organization Address [facility] Co de Phone Number [address] [phone] * (ABNORMAL) ALBUMIN BLOOD (11/30/2017 3:31 AM CDT) Albumin 3.2(L) 3.4 - 5.0 g/dL 11/30/2017 4:19 AM CDT [facility] Blood BLOOD SPECIMEN / Unknown Lab Venipuncture / Unknown 11/30/2017 3:31 AM CDT 11/30/2017 3:57 AM CDT Lewis Garcia MD LAB - CHEMISTRY O RDERABLES Performing Organization Address [facility] de Phone Number [address] [phone] * (ABNORMAL) GLUCOSE - POINT OF CARE (11/30/2017 2:25 AM CDT) Glucose WB/POC 205(H) 70 - 115 mg/dL 11/30/2017 4:36 AM CDT [facility] Specimen Type Arterial/C apillary 11/30/2017 4:36 AM CDT [facility] Blood BLOOD SPECIMEN / Unknown 11/30/2017 2:25 AM CDT 11/30/2017 4:36 AM CDT Narrative [facility] - 11/30/2017 4:36 AM CDT [employer]pper: BARKS ??TENNESHA Lewis Garcia MD LAB - POINT OF [place] RE ORDERABLES Performing Organization Address [facility]/ZIP Co de Phone Number [address] [phone] * (ABNORMAL) GLUCOSE - POINT OF CARE (11/29/2017 8:12 PM CDT) Glucose WB/POC 168(H) 70 - 115 mg/dL 11/29/2017 8:28 PM CDT [facility] Specimen Type Arterial/C apillary 11/29/2017 8:28 PM CDT [facility] Blood BLOOD SPECIMEN / Unknown 11/29/2017 8:12 PM CDT 11/29/2017 8:28 PM CDT Narrative [facility] - 11/29/2017 8:28 PM CDT [employer]pper: ADALGISA ?ABRAHAM Lewis Garcia MD LAB - POINT [facility] RE ORDERABLES Performing Organization Address [facility]/ZIP Co de Phone Number [address] [phone] * (ABNORMAL) GLUCOSE - POINT OF CARE (11/29/2017 6:40 PM CDT) Glucose WB/POC 158(H) 70 - 115 mg/dL 11/29/2017 6:54 PM CDT [facility] Specimen Type Arterial/C apillary 11/29/2017 6:54 PM CDT [facility] Blood BLOOD SPECIMEN / Unknown 11/29/2017 6:40 PM CDT 11/29/2017 6:54 PM CDT Narrative [facility] - 11/29/2017 6:54 PM CDT [employer] Weather Stripper: VIJAY ??PETER Lewis Garcia MD LAB - POINT [place] [address], [facility] [phone] * (ABNORMAL) GLUCOSE - POINT OF CARE (11/29/2017 5:22 PM CDT) Glucose WB/POC 169(H) 70 - 115 mg/dL 11/29/2017 5:36 PM [facility] Specimen Type Venous 11/29/2017 5:36 PM [facility] Blood BLOOD SPECIMEN / Unknown 11/29/2017 5:22 PM CDT 11/29/2017 5:36 PM CDT Narrative [facility] - 11/29/2017 5:36 PM CDT [employer]pper: JAYASHREE ?NEELIMA Enrrique Ulrich MD LAB - POINT OF CARE ORDERABLES [facility] [address] [place] [address] * (ABNORMAL) BASIC METABOLIC PANEL (CALCIUM TOTAL) (11/29/2017 5:17 PM CDT) BUN 3(L) 7 - 26 mg/dL 11/29/2017 7:16 PM [facility] Creatinine 0.7 0.6 - 1.2 mg/dL 11/29/2017 7:16 PM [facility] Comment:Confirmed by repeat analysis. Sodium 139 136 - 145 mmol/L 11/29/2017 7:16 PM [facility] Potassium 4.4 3.5 - 4.5 mmol/L 11/29/2017 7:16 PM [facility] Comment: Hemolysis detected in this specimen. Hemolysis is known to cause elevations in this analyte. Caution should be exercised in the interpretation of this result. Recommend repeat testing if clinically indicated. Chloride 102 98 - 107 mmol/L 11/29/2017 7:16 PM [facility] CO2 11(L) 22 - 29 mmol/L 11/29/2017 7:16 PM [facility] Glucose 160(H) 70 - 115 mg/dL 11/29/2017 7:16 PM [facility] Calcium 8.2(L) 8.4 - 10.2 mg/dL 11/29/2017 7:16 PM [facility] Anion Gap 30(H) 8 - 18 11/29/2017 7:16 PM [facility] BUN/Creatinine Ratio 4(L) 7 - 23 11/29/2017 7:16 PM [facility] Osmolality Calculated 288 270 - 300 mOsm/kg 11/29/2017 7:16 PM CDT [facility] eGFR >60 >60 mL/min/1. 73 m2 11/29/2017 7:16 PM CDT [facility] Blood BLOOD SPECIMEN / Unknown Venipuncture / Unknown 11/29/2017 5:17 PM CDT 11/29/2017 5:40 PM CDT Iesha Leonard DO LAB - CHEMISTRY [place] Performing Organization Address City/[facility]/ZIP Co de Phone Number [address] [phone] * (ABNORMAL) GLUCOSE - POINT OF CARE (11/29/2017 11:58 AM CDT) Glucose WB/POC 179(H) 70 - 115 mg/dL 11/29/2017 12:12 PM CDT [facility] Specimen Type Venous 11/29/2017 12:12 PM CDT [facility] Blood BLOOD SPECIMEN / Unknown 11/29/2017 11:58 AM CDT 11/29/2017 12:12 PM CDT Narrative [facility] - 11/29/2017 12:12 PM CDT [employer]pper: JAYASHREE RICH Enrrique Ulrich MD LAB - POINT OF CARE ORDERABLES Performing Organization Address [facility] Co de Phone Number [address] [phone] * (ABNORMAL) GLUCOSE - POINT OF CARE (11/29/2017 9:10 AM CDT) Glucose WB/POC 131(H) 70 - 115 mg/dL 11/29/2017 9:23 AM CDT [facility] Specimen Type Venous 11/29/2017 9:23 AM CDT [facility] Blood BLOOD SPECIMEN / Unknown 11/29/2017 9:10 AM CDT 11/29/2017 9:23 AM CDT Narrative [facility] - 11/29/2017 9:23 AM CDT [employer] Weather Stripper: JAYASHREE RICH Enrrique Ulrich MD LAB - POINT OF CARE ORDERABLES Performing Organization Address [facility]/ZIP Co de Phone Number [address] [phone] * (ABNORMAL) CORTISOL BLOOD AM (11/29/2017 9:08 AM CDT) Cortisol AM 28.7(H) 3.7 - 19.4 mcg/dL 11/29/2017 2:21 PM CDT [facility] Blood BLOOD SPECIMEN / Unknown Venipuncture / Unknown 11/29/2017 9:08 AM CDT 11/29/2017 9:50 AM CDT Lucas Carrera MD LAB - CHEMISTRY ORDERABLES Performing Organization Address [facility] Co de Phone Number [address] [phone] * (ABNORMAL) CORTISOL BLOOD AM (11/29/2017 9:08 AM CDT) Cortisol AM 27.8(H) 3.7 - 19.4 mcg/dL 11/29/2017 2:21 PM CDT [facility] Blood BLOOD SPECIMEN / Unknown Venipuncture / Unknown 11/29/2017 9:08 AM CDT 11/29/2017 9:15 AM CDT Lucas Carrera MD LAB - CHEMISTRY ORDERABLES Performing Organization Address [facility] Co de Phone Number [address] [phone] * CORTISOL BLOOD AM (11/29/2017 8:27 AM CDT) Cortisol AM 17.8 3.7 - 19.4 mcg/dL 11/29/2017 9:17 AM CDT [facility] Blood BLOOD SPECIMEN / Unknown Venipuncture / Unknown 11/29/2017 8:27 AM CDT 11/29/2017 8:30 AM CDT Lucas Carrera MD LAB - CHEMISTRY ORDERABLES [address] [phone] * ACTH (11/29/2017 8:27 AM CDT) [facility] ACTH 30.1 7.2 - 63.3 pg/mL 11/30/2017 1:12 PM CDT [facility] ([facility]) Comment:ACTH reference inter tommie for samples collected between 7 and 10 AM. Blood BLOOD SPECIMEN / Unknown Venipuncture / Unknown 11/29/2017 8:27 AM CDT 11/29/2017 8:30 AM CDT Narrative [facility] ([facility]) - 11/30/2017 1:12 PM CDT Performed at: ??[id number] - [facility] [address] [place], [place] ??[id number] Customer Relations Assistant: Gregorio Ortega PhD, Phone: ??[phone] Lucas Carrera MD LAB - CHEMISTRY ORDERABLES Performing Organization Address [facility]/ZIP Co de Phone Number [facility] ([facility]) [address] [place] [address] * (ABNORMAL) PHOSPHORUS BLOOD (11/29/2017 8:27 AM CDT) [facility] Phosphorus 2.1(L) 2.3 - 4.7 mg/dL 11/29/2017 9:03 AM CDT [facility] Comment:Confirmed by repeat analysis. Blood BLOOD SPECIMEN / Unknown Venipuncture / Unknown 11/29/2017 8:27 AM CDT 11/29/2017 8:30 AM CDT uLcas Carrera MD LAB - CHEMISTRY ORDERABLES [address] [phone] * (ABNORMAL) BASIC METABOLIC PANEL (CALCIUM TOTAL) (11/29/2017 8:27 AM CDT) [facility] BUN 6(L) 7 - 26 mg/dL 11/29/2017 8:53 AM [facility] Creatinine 0.4(L) 0.6 - 1.2 mg/dL 11/29/2017 8:53 AM [facility] Sodium 134(L) 136 - 145 mmol/L 11/29/2017 8:53 AM [facility] Potassium 3.6 3.5 - 4.5 mmol/L 11/29/2017 8:53 AM [facility] Chloride 105 98 - 107 mmol/L 11/29/2017 8:53 AM [facility] CO2 19(L) 22 - 29 mmol/L 11/29/2017 8:53 AM [facility] Glucose 115 70 - 115 mg/dL 11/29/2017 8:53 AM [facility] Calcium 8.0(L) 8.4 - 10.2 mg/dL 11/29/2017 8:53 AM [facility] Anion Gap 14 8 - 18 11/29/2017 8:53 AM [facility] BUN/Creatinine Ratio 15 7 - 23 11/29/2017 8:53 AM [facility] Osmolality Calculated 277 270 - 300 mOsm/kg 11/29/2017 8:53 AM [facility] eGFR >60 >60 mL/min/1.7 3 m2 11/29/2017 8:53 AM [facility] Blood BLOOD SPECIMEN / Unknown Venipuncture / Unknown 11/29/2017 8:27 AM CDT 11/29/2017 8:30 AM [facility] Lucas Carrera MD LAB - CHEMISTRY ORDERABLES [address] [phone] * GLUCOSE - POINT OF CARE (11/29/2017 8:25 AM [facility]) Glucose WB/POC 109 70 - 115 mg/dL 11/29/2017 8:42 AM [facility] Specimen Type Venous 11/29/2017 8:42 AM [facility] Blood BLOOD SPECIMEN / Unknown 11/29/2017 8:25 AM CDT 11/29/2017 8:42 AM CDT [facility] - 11/29/2017 8:42 AM CDT [employer] Stripper: JAYASHREE RICH Enrrique Ulrich MD LAB - POINT OF CARE ORDERABLES [address] [phone] * GLUCOSE - POINT OF CARE (11/29/2017 7:33 AM CDT) Glucose WB/POC 90 70 - 115 mg/dL 11/29/2017 7:49 AM CDT [facility] Specimen Type Arterial/C apillary 11/29/2017 7:49 AM CDT [facility] Blood BLOOD SPECIMEN / Unknown 11/29/2017 7:33 AM CDT 11/29/2017 7:49 AM CDT [facility] - 11/29/2017 7:49 AM CDT Metal Weather Stripper: JAYASHREE RICH Enrrique Ulrich MD LAB - POINT OF C[place] [address], [facility] [phone] * GLUCOSE - POINT OF CARE (11/29/2017 6:57 AM CDT) Glucose WB/POC 101 70 - 115 mg/dL 11/29/2017 7:10 AM CDT [facility] Specimen Type Arterial/C apillary 11/29/2017 7:10 AM CDT [facility] Blood BLOOD SPECIMEN / Unknown 11/29/2017 6:57 AM CDT 11/29/2017 7:10 AM CDT [facility] - 11/29/2017 7:10 AM CDT [employer] Weather Stripper: Jacob Tim Enrrique Ulrich MD LAB - POINT OF CARE ORDERABLES [address] [phone] * (ABNORMAL) PHOSPHORUS BLOOD (11/29/2017 6:04 AM CDT) Phosphorus 1.4(L) 2.3 - 4.7 mg/dL 11/29/2017 6:55 AM [facility] Blood BLOOD SPECIMEN / Unknown Venipuncture / Unknown 11/29/2017 6:04 AM CDT 11/29/2017 6:10 AM CDT Lucas Carrera MD LAB - CHEMISTRY ORDERABLES [facility] [address] [phone] * (ABNORMAL) BASIC METABOLIC PANEL (CALCIUM TOTAL) (11/29/2017 6:04 AM CDT) BUN 6(L) 7 - 26 mg/dL 11/29/2017 6:57 AM [facility] Creatinine 0.4(L) 0.6 - 1.2 mg/dL 11/29/2017 6:57 AM [facility] Sodium 136 136 - 145 mmol/L 11/29/2017 6:57 AM [facility] Potassium 3.4(L) 3.5 - 4.5 mmol/L 11/29/2017 6:57 AM [facility] Chloride 109(H) 98 - 107 mmol/L 11/29/2017 6:57 AM [facility] CO2 18(L) 22 - 29 mmol/L 11/29/2017 6:57 AM [facility] Glucose 124(H) 70 - 115 mg/dL 11/29/2017 6:57 AM [facility] Calcium 7.7(L) 8.4 - 10.2 mg/dL 11/29/2017 6:57 AM [facility] Anion Gap 12 8 - 18 11/29/2017 6:57 AM [facility] BUN/Creatinine Ratio 15 7 - 23 11/29/2017 6:57 AM [facility] Osmolality Calculated 281 270 - 300 mOsm/kg 11/29/2017 6:57 AM [facility] eGFR >60 >60 mL/min/1.7 3 m2 11/29/2017 6:57 AM CDT [facility] Blood BLOOD SPECIMEN / Unknown Venipuncture / Unknown 11/29/2017 6:04 AM CDT 11/29/2017 6:10 AM CDT Lucas Carrera MD LAB - CHEMISTRY ORDERABLES [address] [phone] * (ABNORMAL) GLUCOSE - POINT OF CARE (11/29/2017 6:03 AM CDT) Glucose WB/POC 123(H) 70 - 115 mg/dL 11/29/2017 6:16 AM CDT [facility] Specimen Type Arterial/C apillary 11/29/2017 6:16 AM CDT [facility] Blood BLOOD SPECIMEN / Unknown 11/29/2017 6:03 AM CDT 11/29/2017 6:16 AM CDT Narrative [facility] - 11/29/2017 6:16 AM CDT [employer]: [place] ??Aziza Enrrique Ulrich MD LAB - POINT OF CARE ORDERABLES Performing Organization Address City/[facility]/ZIP Co de Phone Number [address] [phone] * (ABNORMAL) GLUCOSE - POINT OF CARE (11/29/2017 5:02 AM CDT) Glucose WB/POC 184(H) 70 - 115 mg/dL 11/29/2017 5:19 AM CDT [facility] Specimen Type Arterial/C apillary 11/29/2017 5:19 AM CDT [facility] Blood BLOOD SPECIMEN / Unknown 11/29/2017 5:02 AM CDT 11/29/2017 5:19 AM CDT [facility] - 11/29/2017 5:19 AM CDT [employer]: [place] ??Aziza Enrrique Ulrich MD LAB - POINT OF CARE ORDERABLES [address] [phone] * (ABNORMAL) GLUCOSE - POINT OF CARE (11/29/2017 4:02 AM CDT) [facility] Glucose WB/POC 213(H) 70 - 115 mg/dL 11/29/2017 4:14 AM T [facility] Specimen Type Arterial/C apillary 11/29/2017 4:14 AM T [facility] Blood BLOOD SPECIMEN / Unknown 11/29/2017 4:02 AM CDT 11/29/2017 4:14 AM CDT [facility] - 11/29/2017 4:14 AM CDT [employer]: Jacob ??Aziza Enrrique Ulrich MD LAB - POINT OF CARE ORDERABLES Performing Organization Address [facility] Co de Phone Number [address] [phone] * (ABNORMAL) CBC W/O DIFFERENTIAL (11/29/2017 4:02 AM CDT) [facility] WBC 6.9 3.5 - 10.5 10? 3 /uL 11/29/2017 4:17 AM [facility] RBC 3.82(L) 3.90 - 5.00 10? 6 /uL 11/29/2017 4:17 AM [facility] Hemoglobin 10.5(L) 12.0 - 15.5 g/dL 11/29/2017 4:17 AM [facility] Hematocrit 30.7(L) 35.0 - 45.0 % 11/29/2017 4:17 AM [facility] MCV 80.4(L) 81.0 - 97.0 fL 11/29/2017 4:17 AM [facility] MCH 27.5(L) 28.0 - 34.0 pg 11/29/2017 4:17 AM [facility] MCHC 34.2 32.0 - 36.0 g/dL 11/29/2017 4:17 AM [facility] Platelet Count 318 150 - 400 10? 3 /uL 11/29/2017 4:17 AM CDT [facility] RDW-SD 39.8 36.0 - 50.0 fL 11/29/2017 4:17 AM T [facility] RDW-CV 13.6 11.2 - 14.8 % 11/29/2017 4:17 AM T [facility] MPV 8.7(L) 9.3 - 12.8 fL 11/29/2017 4:17 AM T [facility] Blood BLOOD SPECIMEN / Unknown Venipuncture / Unknown 11/29/2017 4:02 AM CDT 11/29/2017 4:06 AM CDT Lucas Carrera MD LAB - HEMATOLOGY ORDERABLES Performing Organization Address [facility]/ZIP Co de Phone Number [address] [phone] * (ABNORMAL) PHOSPHORUS BLOOD (11/29/2017 4:02 AM CDT) Phosphorus 2.2(L) 2.3 - 4.7 mg/dL 11/29/2017 4:40 AM T [facility] Blood BLOOD SPECIMEN / Unknown Venipuncture / Unknown 11/29/2017 4:02 AM CDT 11/29/2017 4:06 AM CDT Lucas Carrera MD LAB - CHEMISTRY ORDERABLES [address] [phone] * (ABNORMAL) BASIC METABOLIC PANEL (CALCIUM TOTAL) (11/29/2017 4:02 AM CDT) BUN 7 7 - 26 mg/dL 11/29/2017 4:40 AM [facility] Creatinine 0.4(L) 0.6 - 1.2 mg/dL 11/29/2017 4:40 AM T [facility] Sodium 131(L) 136 - 145 mmol/L 11/29/2017 4:40 AM T [facility] Potassium 4.5 3.5 - 4.5 mmol/L 11/29/2017 4:40 AM [facility] Chloride 105 98 - 107 mmol/L 11/29/2017 4:40 AM [facility] CO2 17(L) 22 - 29 mmol/L 11/29/2017 4:40 AM [facility] Glucose 220(H) 70 - 115 mg/dL 11/29/2017 4:40 AM [facility] Calcium 7.6(L) 8.4 - 10.2 mg/dL 11/29/2017 4:40 AM [facility] Anion Gap 14 8 - 18 11/29/2017 4:40 AM [facility] BUN/Creatinine Ratio 18 7 - 23 11/29/2017 4:40 AM [facility] Osmolality Calculated 277 270 - 300 mOsm/kg 11/29/2017 4:40 AM [facility] eGFR >60 >60 mL/min/1.7 3 m2 11/29/2017 4:40 AM [facility] Blood BLOOD SPECIMEN / Unknown Venipuncture / Unknown 11/29/2017 4:02 AM CDT 11/29/2017 4:06 AM CDT Lucas Carrera MD LAB - CHEMISTRY ORDERABLES [address] [phone] * (ABNORMAL) CORTISOL BLOOD AM (11/29/2017 4:02 AM CDT) Cortisol AM 1.3(L) 3.7 - 19.4 mcg/dL 11/29/2017 5:13 AM T [facility] Blood BLOOD SPECIMEN / Unknown Venipuncture / Unknown 11/29/2017 4:02 AM CDT 11/29/2017 4:06 AM CDT Lucas Carrera MD LAB - CHEMISTRY ORDERABLES [address] [phone] * MAGNESIUM BLOOD (11/29/2017 4:02 AM CDT) Magnesium 2.1 1.6 - 2.6 mg/dL 11/29/2017 4:40 AM CDT [facility] Blood BLOOD SPECIMEN / Unknown Venipuncture / Unknown 11/29/2017 4:02 AM CDT 11/29/2017 4:06 AM CDT Lucas Carrera MD LAB - CHEMISTRY ORDERABLES [address] [phone] * (ABNORMAL) GLUCOSE - POINT OF CARE (11/29/2017 1:51 AM CDT) Glucose WB/POC 172(H) 70 - 115 mg/dL 11/29/2017 2:08 AM CDT [facility] Specimen Type Arterial/C apillary 11/29/2017 2:08 AM CDT [facility] Blood BLOOD SPECIMEN / Unknown 11/29/2017 1:51 AM CDT 11/29/2017 2:08 AM CDT Narrative [facility] - 11/29/2017 2:08 AM CDT [employer]pper: Jacob ??Aziza Enrrique Ulrich MD LAB - POINT OF CARE ORDERABLES Performing Organization Address City/[facility]/ZIP Co de Phone Number [address] [phone] * GLUCOSE - POINT OF CARE (11/28/2017 11:17 PM CDT) Glucose WB/POC 93 70 - 115 mg/dL 11/28/2017 11:34 PM CDT [facility] Specimen Type Arterial/C apillary 11/28/2017 11:34 PM CDT [facility] Blood BLOOD SPECIMEN / Unknown 11/28/2017 11:17 PM CDT 11/28/2017 11:33 PM CDT Narrative [facility] - 11/28/2017 11:34 PM CDT [employer]pper: Jacob ??Aziza Enrrique Ulrich MD LAB - POINT OF CARE ORDERABLES Performing Organization Address [facility] [place] [address], [facility] [phone] * CULTURE BLOOD (11/28/2017 10:30 PM CDT) [facility] Culture No growth day 5 ORQUIDEA 12/04/2017 2:00 AM CDT [facility] Blood PERIPHERAL BLOOD / Unknown Venipuncture / Unknown 11/28/2017 10:30 PM CDT 11/28/2017 10:37 PM CDT Lucas Carrera MD LAB - MICROBIOLO GY ORDERABLES Performing Organization Address [facility] Co de Phone Number [facility] [address] [place] [address], [facility] [phone] * ALCOHOL ETHYL BLOOD (11/28/2017 10:29 PM CDT) [facility] Interpretation Ethanol None Detected None Detected mg/dL 11/28/2017 11:44 PM CDT [facility] Comment: Ethanol levels less than 10 mg/dL are resulted as None detected . Blood BLOOD SPECIMEN / Unknown Venipuncture / Unknown 11/28/2017 10:29 PM CDT 11/28/2017 11:22 PM CDT Lucas Carrera MD LAB - CHEMISTRY ORDERABLES Performing Organization Address [facility] [place] [address], [facility] [phone] * (ABNORMAL) HYDROXYBUTYRATE BETA (11/28/2017 10:29 PM CDT) [facility] Beta-Hydroxybu tyrate 6.03(H) 0.02 - 0.27 mmol/L 11/28/2017 11:45 PM CDT [facility] Comment: Result obtained by dilution. Blood BLOOD SPECIMEN / Unknown Venipuncture / Unknown 11/28/2017 10:29 PM CDT 11/28/2017 11:22 PM CDT Lucas Carrera MD LAB - CHEMISTRY ORDERABLES [facility] [address] [phone] * (ABNORMAL) DIFFERENTIAL MANUAL (11/28/2017 10:29 PM CDT) WBC (corrected for NRBC) 7.4 10? 3 /uL 11/28/2017 11:23 PM [facility] Total Cell Count 100 11/28/2017 11:23 PM [facility] Neutrophils Absolute Manual 1.92 1.60 - 7.00 10? 3 /uL 11/28/2017 11:23 PM [facility] Comment:(BANDS+SEGS) x WBC = NEUT # (ANC) Lymphocyte Absolute Manual 4.59(H) 0.80 - 2.90 10? 3 /uL 11/28/2017 11:23 PM [facility] Monocytes Absolute Manual 0.74(H) 0.14 - 0.66 10? 3 /uL 11/28/2017 11:23 PM [facility] Neutrophil % Manual 26(L) 30 - 60 % 11/28/2017 11:23 PM [facility] Lymphocyte % Manual 62(H) 20 - 45 % 11/28/2017 11:23 PM [facility] Monocytes % Manual 10 2 - 10 % 11/28/2017 11:23 PM [facility] Atypical Lymphocyte % Manual 2(H) 0 % 11/28/2017 11:23 PM [facility] Platelet Estimate Adequate Adequate 11/28/2017 11:23 PM [facility] RBC Morphology Normal 11/28/2017 11:23 PM [facility] Blood BLOOD SPECIMEN / Unknown Venipuncture / Unknown 11/28/2017 10:29 PM CDT 11/28/2017 10:36 PM CDT Lucas Carrera MD LAB - HEMATOLOGY ORDERABLES [facility] [address] [place] [address], [facility] [phone] * TSH (11/28/2017 10:29 PM CDT) [facility] TSH 0.727 0.350 - 4.940 uIU/mL 11/28/2017 11:15 PM CDT [facility] Blood BLOOD SPECIMEN / Unknown Venipuncture / Unknown 11/28/2017 10:29 PM CDT 11/28/2017 10:36 PM CDT Lucas Carrera MD LAB - CHEMISTRY [place] [address], [facility] [phone] * CULTURE BLOOD (11/28/2017 10:29 PM CDT) [facility] Culture No growth day 5 ORQUIDEA 12/04/2017 2:00 AM CDT [facility] Blood PERIPHERAL BLOOD / Unknown Venipuncture / Unknown 11/28/2017 10:29 PM CDT 11/28/2017 10:37 PM CDT Lucas Carrera MD LAB - MICROBIOLO GY ORDERABLES [facility] [address] [place] [address], [facility] [phone] * (ABNORMAL) HEMOGLOBIN A1C (11/28/2017 10:29 PM CDT) [facility] Hemoglobin A1c 9.7(H) 4.4 - 6.3 % 11/29/2017 8:49 AM CDT [facility] Estimated Average Glucose 232 mg/dL 11/29/2017 8:49 AM CDT [facility] Comment: HbA1c Interpretation: Treatment target values recommended by ADA and other clinical organizations should be used to evaluate metabolic control in patients. Treatment Target Values: Normal : < 5.7% Pre-diabetes: 5.7-6.4% Diabetes: Equal to or greater than 6.5% Reference: [place] [employer] Standards of Care in Diabetes -2014 In patients 70 years and older consider HbA1c target range of 7.0-7.5% Reference: ??Diabetes Mellitus in Older People: Position Statement on behalf of the International Association of Gerontology and Geriatrics (IAGG), the Diabetes Working Green Party for Older People (EDWPOP), and the International Task Force of Experts in Diabetes. ??Sterling Frost et al. J [place] [employer]. 2012 Test results diagnostic of diabetes should be repeated for confirmation. The Tosoh G8 assay for the measurement of HbA1c is a National Glycohemoglobin Standardization Program (NGSP)certified method. Results for patients with HbE disease should be interpreted with caution as this hemoglobinopathy has been shown to interfere with the Tosoh G8 assay. Whole Blood BLOOD SPECIMEN WITH EDTA / Unknown Venipuncture / Unknown 11/28/2017 10:29 PM CDT 11/28/2017 10:36 PM CDT Lucas Carrera MD LAB - CHEMISTRY ORDERABLES Performing Organization Address City/[facility]/ZIP Co de Phone Number [address] [phone] * PTT [facility] (11/28/2017 10:29 PM CDT) APTT 25.2 23.0 - 38.4 Seconds 11/28/2017 10:48 PM CDT [facility] Comment: Suggested therapeutic range for full dose I.V. heparin therapy for venous thromboembolism is 66.0-91.0 seconds. Blood BLOOD SPECIMEN / Unknown Venipuncture / Unknown 11/28/2017 10:29 PM CDT 11/28/2017 10:36 PM CDT Lucas Carrera MD LAB - COAGULATIO N ORDERABLES Performing Organization Address City/[facility]/ZIP Co de Phone Number [address] [phone] * PT-INR [facility] (11/28/2017 10:29 PM CDT) PT 14.4 12.1 - 14.8 Seconds 11/28/2017 10:47 PM CDT [facility] INR 1.1 See Comment 11/28/2017 10:47 PM T [facility] Comment: The suggested therapeutic range for standard coumadin (warfarin) therapy is an INR of 2.0-3.0. For high-risk patients (Mechanical Mitral Valve Prosthesis, etc.), the suggested prophylactic therapeutic range is an INR of 2.5-3.5. Blood BLOOD SPECIMEN / Unknown Venipuncture / Unknown 11/28/2017 10:29 PM CDT 11/28/2017 10:36 PM CDT Lucas Carrera MD LAB - COAGULATIO N ORDERABLES Performing Organization Address [facility] Co de Phone Number [address] [phone] * (ABNORMAL) PHOSPHORUS BLOOD (11/28/2017 10:29 PM CDT) Phosphorus 2.1(L) 2.3 - 4.7 mg/dL 11/28/2017 10:56 PM CDT [facility] Blood BLOOD SPECIMEN / Unknown Venipuncture / Unknown 11/28/2017 10:29 PM CDT 11/28/2017 10:36 PM CDT Lucas Carrera MD LAB - CHEMISTRY ORDERABLES Performing Organization Address [facility] Co de Phone Number [address] [phone] * (ABNORMAL) MAGNESIUM BLOOD (11/28/2017 10:29 PM CDT) Magnesium 1.5(L) 1.6 - 2.6 mg/dL 11/28/2017 10:56 PM CDT [facility] Blood BLOOD SPECIMEN / Unknown Venipuncture / Unknown 11/28/2017 10:29 PM CDT 11/28/2017 10:36 PM CDT Lucas Carrera MD LAB - CHEMISTRY ORDERABLES Performing Organization Address [facility]/ZIP Co de Phone Number [address] [phone] * (ABNORMAL) LIPASE BLOOD (11/28/2017 10:29 PM CDT) Pathologist [facility] Lipase 5(L) 8 - 78 Units/L 11/28/2017 10:56 PM CDT [facility] Blood BLOOD SPECIMEN / Unknown Venipuncture / Unknown 11/28/2017 10:29 PM CDT 11/28/2017 10:36 PM CDT Lucas Carrera MD LAB - CHEMISTRY ORDERABLES [address] [phone] * LACTIC ACID BLOOD (11/28/2017 10:29 PM CDT) [facility] Lactic Acid-Stat 1.0 0.5 - 2.2 mmol/L 11/28/2017 10:50 PM CDT [facility] Blood BLOOD SPECIMEN / Unknown Venipuncture / Unknown 11/28/2017 10:29 PM CDT 11/28/2017 10:36 PM CDT Lucas Carrera MD LAB - CHEMISTRY ORDERABLES [address] [phone] * (ABNORMAL) CBC W AUTO DIFFERENTIAL (11/28/2017 10:29 PM CDT) [facility] WBC 7.4 3.5 - 10.5 10? 3 /uL 11/28/2017 10:51 PM CDT [facility] RBC 4.45 3.90 - 5.00 10? 6 /uL 11/28/2017 10:51 PM CDT [facility] Hemoglobin 12.4 12.0 - 15.5 g/dL 11/28/2017 10:51 PM CDT [facility] Hematocrit 36.0 35.0 - 45.0 % 11/28/2017 10:51 PM CDT [facility] MCV 80.9(L) 81.0 - 97.0 fL 11/28/2017 10:51 PM [facility] MCH 27.9(L) 28.0 - 34.0 pg 11/28/2017 10:51 PM [facility] MCHC 34.4 32.0 - 36.0 g/dL 11/28/2017 10:51 PM [facility] Platelet Count 377 150 - 400 10? 3 /uL 11/28/2017 10:51 PM [facility] RDW-SD 39.9 36.0 - 50.0 fL 11/28/2017 10:51 PM [facility] RDW-CV 13.5 11.2 - 14.8 % 11/28/2017 10:51 PM [facility] MPV 8.9(L) 9.3 - 12.8 fL 11/28/2017 10:51 PM [facility] Reflex Status Manual Differential to follow. 11/28/2017 10:51 PM [facility] Blood BLOOD SPECIMEN / Unknown Venipuncture / Unknown 11/28/2017 10:29 PM CDT 11/28/2017 10:36 PM T Lucas Carrera MD LAB - HEMATOLOGY ORDERABLES [address] [phone] * (ABNORMAL) COMPREHENSIVE METABOLIC PANEL (11/28/2017 10:29 PM CDT) BUN 10 7 - 26 mg/dL 11/28/2017 11:32 PM [facility] Creatinine 0.4(L) 0.6 - 1.2 mg/dL 11/28/2017 11:32 PM [facility] Sodium 136 136 - 145 mmol/L 11/28/2017 11:32 PM [facility] Potassium 2.9(LL) 3.5 - 4.5 mmol/L 11/28/2017 11:32 PM [facility] Comment:Confirmed by repeat analysis. Chloride 105 98 - 107 mmol/L 11/28/2017 11:32 PM [facility] CO2 15(L) 22 - 29 mmol/L 11/28/2017 11:32 PM [facility] Glucose 101 70 - 115 mg/dL 11/28/2017 11:32 PM [facility] Calcium 8.4 8.4 - 10.2 mg/dL 11/28/2017 11:32 PM [facility] Protein Total 5.8(L) 6.0 - 8.3 g/dL 11/28/2017 11:32 PM [facility] Albumin 3.5 3.4 - 5.0 g/dL 11/28/2017 11:32 PM [facility] Bilirubin Total 0.8 0.2 - 1.2 mg/dL 11/28/2017 11:32 PM [facility] Alkaline Phosphatase 66 40 - 150 Units/L 11/28/2017 11:32 PM [facility] ALT 6 0 - 55 Units/L 11/28/2017 11:32 PM [facility] AST 9 5 - 34 Units/L 11/28/2017 11:32 PM [facility] Anion Gap 19(H) 8 - 18 11/28/2017 11:32 PM [facility] BUN/Creatinine Ratio 25(H) 7 - 23 11/28/2017 11:32 PM [facility] Osmolality Calculated 281 270 - 300 mOsm/kg 11/28/2017 11:32 PM [facility] Albumin/Globulin Ratio 1.5 1.1 - 2.3 11/28/2017 11:32 PM [facility] eGFR >60 >60 mL/min/1.7 3 m2 11/28/2017 11:32 PM [facility] Blood BLOOD SPECIMEN / Unknown Venipuncture / Unknown 11/28/2017 10:29 PM CDT 11/28/2017 10:36 PM CDT Lucas Carrera MD LAB - CHEMISTRY ORDERABLES [facility] [address] [place] [address] * XR CHEST 1VW PORTABLE (11/28/2017 10:22 [...] is intact. Procedure Note Imer De La Cruz, DO - 11/29/2017 Exam: XR CHEST 1VW [...] Carrera MD DIAGNOSTIC IMAGI NG ORDERABLES * DRUG SCREEN TOX URINE PANEL (11/28/2017 9:48 PM CDT) Pathologist [facility] Amphetamines Screen Urine Negative Negative: < 1000 ng/mL 11/28/2017 10:56 PM CDT [facility] Barbiturates Screen Urine Negative Negative: < 200 ng/mL 11/28/2017 10:56 PM CDT [facility] Benzodiazepine Screen Urine Negative Negative: < 200 ng/mL 11/28/2017 10:56 PM CDT [facility] Opiates Urine Negative Negative: < 300 ng/mL 11/28/2017 10:56 PM CDT [facility] Cocaine Metabolites Urine Negative Negative: < 300 ng/mL 11/28/2017 10:56 PM CDT [facility] Phencyclidine Screen Urine Negative Negative: < 25 ng/ml 11/28/2017 10:56 PM CDT [facility] Cannabinoids Screen Urine Negative Negative: <50 ng/mL 11/28/2017 10:56 PM CDT [facility] Methadone Screen Urine Negative Negative: < 300 ng/mL 11/28/2017 10:56 PM CDT [facility] Urine URINE / Unknown Collection / Unknown 11/28/2017 9:48 PM CDT 11/28/2017 10:38 PM CDT Narrative [facility] - 11/28/2017 10:56 PM CDT The Urine Toxicology Screening Panel does not screen for Propoxyphene, Meprobamate, Carisoprodol, Trazodone, dyte-htx-shnlbml medications and/or volatiles (Acetone, Isopropanol, Methanol or Ethylene Glycol). Ethanol, Salicylate, Acetaminophen, Tricyclic Antidepressants and several therapeutic drugs may be individually assayed in serum or plasma specimen. Toxicology testing by the [facility] is an aid to medical diagnosis and treatment of patients. No documented chain of custody was maintained. Results are intended to be used for clinical purposes only. ? Lucas Carrera MD LAB - URINE CHEM ISTRY ORDERABLES [facility] [address] [place] [address], [facility] [phone] * CULTURE URINE (11/28/2017 9:48 PM CDT) Culture Urine <10,000 CFU/mL urogenital cassidy ORQUIDEA 11/30/2017 7:54 AM CDT [facility] Urine URINE SPECIMEN OBTAINED BY CLEAN CATCH PROCEDURE / Unknown Collection / Unknown 11/28/2017 9:48 PM CDT 11/28/2017 10:38 PM CDT Lucas Carrera MD LAB - MICROBIOLO GY ORDERABLES [facility] [address] [place] [address], [facility] [phone] * (ABNORMAL) URINALYSIS REFLEX TO MICROSCOPIC NO CULTURE (11/28/2017 9:48 PM CDT) Color UA Yellow Straw, Yellow, Colorless, Light Yellow 11/28/2017 10:53 PM [facility] Clarity UA Clear Clear 11/28/2017 10:53 PM [facility] Specific [place] UA 1.022 1.001 - 1.030 11/28/2017 10:53 PM [facility] pH UA 6.0 5.0 - 8.0 11/28/2017 10:53 PM [facility] Protein UA 20(A) <=20 mg/dL 11/28/2017 10:53 PM [facility] Glucose UA >1000(A) Negative mg/dL 11/28/2017 10:53 PM [facility] Ketone UA >80(A) Negative mg/dL 11/28/2017 10:53 PM [facility] Bilirubin UA Negative Negative mg/dL 11/28/2017 10:53 PM [facility] Blood UA Moderate(A) Negative 11/28/2017 10:53 PM [facility] Nitrite UA Negative Negative 11/28/2017 10:53 PM [facility] Leukocyte Esterase Negative Negative 11/28/2017 10:53 PM [facility] Urobilinogen UA <2.0 <2.0 mg/dL 8 10:53 PM [facility] RBC UA 65(H) 0 - 8 /HPF 11/28/2017 10:53 PM CDT [facility] WBC UA <1 0 - 2 /HPF 11/28/2017 10:53 PM CDT [facility] Squamous Epithelial Cells UA 1 0 - 1 /HPF 11/28/2017 10:53 PM CDT [facility] Mucus UA Occasional( A) None /LPF 11/28/2017 10:53 PM CDT [facility] Urine URINE SPECIMEN OBTAINED BY CLEAN CATCH PROCEDURE / Unknown Collection / Unknown 11/28/2017 9:48 PM CDT 11/28/2017 10:38 PM CDT Lucas Carrera MD LAB - URINALYSIS ORDERABLES [address] [phone] * EKG 12-LEAD STAT (11/28/2017 9:38 PM CDT) Ventricular Rate 96 BPM [facility]USE Atrial Rate 96 BPM [facility] MUSE P-R Interval 120 ms [facility] MUSE QRS Duration ms 84 ms H MUSE Q-T Interval ms 428 ms [facility] MUSE QTC Calculation (Bezet) 540 ms [facility]USE Calculated P [place] 75 degrees [facility] MUSE Calculated R [place] 89 degrees [facility] MUSE Calculated T [place] 60 degrees H MUSE Interpretation EKG NORMAL SINUS RHYTHM RIGHT ATRIAL ENLARGEMENT ST ABNORMALITY, POSSIBLE DIGITALIS EFFECT PROLONGED QT ABNORMAL ECG NO PREVIOUS ECGS AVAILABLE Confirmed by DORADO., MAMIE ([id number]), food expeditor BRENDON ABARCA ([id number]) on 12/01/2017 1:15:27 PM [facility] MUSE 11/28/2017 9:38 PM CDT 12/01/2017 1:15 PM CDT Lucas Carrera MD ECG ORDERABLES [facility] MUSE * GLUCOSE - POINT OF CARE (11/28/2017 8:58 PM CDT) Pathologist [facility] Glucose WB/POC 70 70 - 115 mg/dL 11/28/2017 9:16 PM CDT [facility] Specimen Type Arterial/C apillary 11/28/2017 9:16 PM CDT [facility] Blood BLOOD SPECIMEN / Unknown 11/28/2017 8:58 PM CDT 11/28/2017 9:16 PM CDT Narrative [facility] - 11/28/2017 9:16 PM CDT [employer]: Jacob ??Aziza Enrrique Ulrcih MD LAB - POINT OF CARE ORDERABLES [facility] [address] [place] [address] documented in this encounter Visit Diagnoses Diagnosis Type 1 diabetes mellitus with ketoacidosis without coma (HCC)- Primary Type 1 diabetes mellitus with ketoacidosis without coma (HCC) documented in this encounter Administered Medications Inactive Administered Medications - up to 3 most recent administrations Medication Order MAR Action Action Date Dose Rate Site 0.9% NaCl IV Bolus 500 mL, at 124.48 mL/hr, Administer over 241 Minutes, ONCE, 1 dose, On Wed11/30/17 at 0700 $ New Bag/Syringe 11/30/2017 9:47 AM CDT 500 mL 124.48 mL/hr cosyntropin (CORTROSYN) injection 0.25 mg 0.25 mg, Intravenous, ONCE, 1 dose, On Wed11/29/17 at 0815, Do not administer until after baseline cortisol level has been drawn. IntraMUSCular injection reconstitute with 1 mL NS IntraVENous injection dilute in 2 to 5 mL of NS, inject over 2 min $ Given 11/29/2017 8:29 AM CDT 0.25 mg dextrose 5 % and 0.45% NaCl infusion at 125 mL/hr, Intravenous, CONTINUOUS, Starting on Wed11/28/17 at 2345, Until Wed11/29/17 at 0633 $ New Bag/Syringe 11/28/2017 11:40 PM CDT 125 mL/hr dextrose IV 12.5-25 g 12.5-25 g (25-50 mL), Intravenous, PRN, Bedside Glucose less than 70 mg/dL -If NOT able to eat and/or NPO and with IV Access, Starting on Wed11/28/17 at 2300, Until Wed11/30/17 at 1602, If NOT able to eat and/or NPO and with IV Access: For Bedside Glucose 50-69 mg/dL give 25 mls D50W IVP STAT For Bedside glucose 50 mg/dL or LESS verify with a second Bedside Glucose (from a different site) and give 50 mls D50W IVP STAT Re-check and Re-treat blood glucose EVERY 10-25 minutes until blood glucose GREATER than or equal to 80 mg/dl. NOTIFY PROVIDER OF HYPOGLYCEMIC EVENT. dextrose IV 12.5-25 g 12.5-25 g (25-50 mL), Intravenous, PRN, Bedside Glucose less than 70 mg/dL -If NOT able to eat and/or NPO and with IV Access, Starting on Wed11/29/17 at 1021, Until Wed11/30/17 at 1602, If NOT able to eat and/or NPO and with IV Access: For Bedside Glucose 50-69 mg/dL give 25 mls D50W IVP STAT For Bedside glucose 50 mg/dL or LESS verify with a second Bedside Glucose (from a different site) and give 50 mls D50W IVP STAT Re-check and Re-treat blood glucose EVERY 10-25 minutes until blood glucose GREATER than or equal to 80 mg/dl. NOTIFY PROVIDER OF HYPOGLYCEMIC EVENT. enoxaparin (LOVENOX) injection 40 mg 40 mg, Subcutaneous, DAILY AT 0600, 365 doses, First dose on Wed11/29/17 at 0600, Last dose on Wed11/28/18 at 0600, (for prefilled syringes) do not expel air bubble from the syringe prior to the injection Remind Patient to not rub injection site. Could cause hematoma. glucagon (GLUCAGEN) injection 1 mg 1 mg, Intramuscular, PRN, Bedside Glucose less than 70 mg/dL - If NOT able to eat and/or NPO and withOUT IV Access, Starting on Wed11/28/17 at 2300, Until Wed11/30/17 at 1602, If NOT able to eat and/or NPO and NO IV Access: For Bedside glucose 50-69 mg/dL Give 1 mg IM or SQ For Bedside Glucose LESS than 50 mg/dl verify with a second bedside glucose (from a different site) and Give 1 mg IM or SQ Re-check and Re-treat blood glucose EVERY 10-25 minutes until blood glucose GREATER than or equal to 80 mg/dl. NOTIFY PROVIDER OF HYPOGLYCEMIC EVENT. Reconstitute vial with 1 mL of sterile water for injection for a final concentration of 1 mg/mL; shake vial gently; use immediately and discard unused portion glucagon (GLUCAGEN) injection 1 mg 1 mg, Intramuscular, PRN, Bedside Glucose less than 70 mg/dL - If NOT able to eat and/or NPO and withOUT IV Access, Starting on Wed11/29/17 at 1021, Until Wed11/30/17 at 1602, If NOT able to eat and/or NPO and NO IV Access: For Bedside glucose 50-69 mg/dL Give 1 mg IM or SQ For Bedside Glucose LESS than 50 mg/dl verify with a second bedside glucose (from a different site) and Give 1 mg IM or SQ Re-check and Re-treat blood glucose EVERY 10-25 minutes until blood glucose GREATER than or equal to 80 mg/dl. NOTIFY PROVIDER OF HYPOGLYCEMIC EVENT. Reconstitute vial with 1 mL of sterile water for injection for a final concentration of 1 mg/mL; shake vial gently; use immediately and discard unused portion glucose (Diabetic Use) oral gel Oral, PRN, Other, Bedside Glucose less than 70 mg/dL -If able to eat and does not have swallowing difficulties, Starting on Wed11/28/17 at 2300, Until Wed11/30/17 at 1602, If able to eat and does not have swallowing difficulties: For Bedside Glucose 50 - 69 mg/dL Give 15 grams of oral carbohydrates - 1 glucose gel (see MAR) If patient refuses glucose gel, then offer: - 4 ounces of fruit juice OR - 4 ounces non-diet soda OR - 8 ounces of fat-free milk For Bedside Glucose LESS than 50 mg/dL verify with a second Bedside Glucose (from a different site) - If pt is symptomatic, do not delay treatment If the patient is exhibiting symptoms which are not consistent with the results obtained, confirm the glucose with a STAT laboratory test. Give 30 grams of oral carbohydrates - 2 glucose gels (see MAR) If patient refuses glucose gel, then offer: - 8 ounces of fruit juice OR - 8 ounces non-diet soda OR - 16 ounces of fat-free milk Re-check and Re-treat blood glucose EVERY 10-25 minutes until blood glucose GREATER than or equal to 80 mg/dl. NOTIFY PROVIDER OF HYPOGLYCEMIC EVENT. glucose (Diabetic Use) oral gel Oral, PRN, Other, Bedside Glucose less than 70 mg/dL -If able to eat and does not have swallowing difficulties, Starting on Wed11/29/17 at 1021, Until Wed11/30/17 at 1602, If able to eat and does not have swallowing difficulties: For Bedside Glucose 50 - 69 mg/dL Give 15 grams of oral carbohydrates - 1 glucose gel (see MAR) If patient refuses glucose gel, then offer: - 4 ounces of fruit juice OR - 4 ounces non-diet soda OR - 8 ounces of fat-free milk For Bedside Glucose LESS than 50 mg/dL verify with a second Bedside Glucose (from a different site) - If pt is symptomatic, do not delay treatment If the patient is exhibiting symptoms which are not consistent with the results obtained, confirm the glucose with a STAT laboratory test. Give 30 grams of oral carbohydrates - 2 glucose gels (see MAR) If patient refuses glucose gel, then offer: - 8 ounces of fruit juice OR - 8 ounces non-diet soda OR - 16 ounces of fat-free milk Re-check and Re-treat blood glucose EVERY 10-25 minutes until blood glucose GREATER than or equal to 80 mg/dl. NOTIFY PROVIDER OF HYPOGLYCEMIC EVENT. insulin aspart (NovoLOG) pen 0-12 Units 0-12 Units, Subcutaneous, 3 TIMES DAILY WITH MEALS, 1095 doses, First dose on Wed11/29/17 at 1200, Last dose on Wed11/29/18 at 0800, . 150-200 = add 2 units 201-250 = add 4 units 251-300 = add 6 units, 301-350 = add 8 units 351-400 = add 10 units and contact MD for BG GREATER than 350 GREATER than 400 = add 12 units and contact MD for BG GREATER than 350 $ Given 11/30/2017 11:24 AM CDT 6 Units Right Arm $ Given 11/30/2017 9:47 AM CDT 4 Units Ri ght Arm $ Given 11/29/2017 6:58 PM CDT 2 Units Ab dominal Tissue insulin aspart (NovoLOG) pen 5 Units 5 Units (rounded from 4.536 Units = 0.08 Units/kg ? 56.7 kg), Subcutaneous, 3 TIMES DAILY WITH MEALS, 1095 doses, First dose on Wed11/29/17 at 1200, Last dose on Wed11/29/18 at 0800, Hold mealtime dose if blood glucose is LESS than 90 mg/dl Reduce DOSE by 50% if patient consumes LESS than 50% of meal $ Given 11/30/2017 11:24 AM CDT 5 Units Right Arm $ Given 11/30/2017 9:47 AM CDT 5 Units Ri ght Arm $ Given 11/29/2017 6:58 PM CDT 2 Units Ab dominal Tissue insulin glargine (LANTUS) pen 10 Units 10 Units, Subcutaneous, ONCE, 1 dose, On Wed11/29/17 at 0700, Obtain current Blood Glucose if necessary . WASTE DISPOSAL INSTRUCTIONS: Black Bin Disposal required. $ Given 11/29/2017 7:38 AM CDT 10 Units Right Arm insulin glargine (LANTUS) pen 10 Units 10 Units, Subcutaneous, DAILY, First dose on Wed11/30/17 at 0900, Until Discontinued, Obtain current Blood Glucose if necessary . WASTE DISPOSAL INSTRUCTIONS: Black Bin Disposal required. $ Given 11/30/2017 9:47 AM CDT 10 Units Right Arm insulin regular human (humuLIN R; novoLIN R) 100 Units in 0.9% NaCl 100 mL infusion 0-26.5 Units/hr (0-26.5 mL/hr), Intravenous, CONTINUOUS, Starting on Wed11/29/17 at 0115, Until Wed11/29/17 at 1024, Titrate Insulin Infusion per protocol based on the following weight range: 55.5-65.4 kg POC Glucose (mg/dL) POC glucose = 70-89 0 units/hr POC glucose = 90-99 0.2 units/hr POC glucose = 100-119 0.4 units/hr POC glucose = 120-139 0.8 units/hr POC glucose = 140-159 1.2 units/hr POC glucose = 160-179 2.6 units/hr POC glucose = 180-199 3.3 units/hr POC glucose = 200-219 3.9 units/hr POC glucose = 220-239 4.6 units/hr POC glucose = 240-259 5.3 units/hr POC glucose = 260-279 5.9 units/hr POC glucose = 280-299 6.6 units/hr POC glucose = 300-319 7.3 units/hr POC glucose = 320-339 7.9 units/hr POC glucose = 340-349 8.6 units/hr POC glucose = 350-379 9.3 units/hr POC glucose = 380-399 9.9 units/hr POC glucose greater than 400 10.6 units/hr Titrate as follows to achieve the target goal range (See order question) Bolus from the bag as directed in the bolus order . WASTE DISPOSAL INSTRUCTIONS: Black Bin Disposal required., Target POC glucose range: 140-180 mg/dL $ New Bag/Syringe 11/29/2017 7:34 AM CDT 0.2 Units/hr 0.2 mL/hr $ New Bag/Syringe 11/29/2017 6:59 AM CDT 0.4 Units/hr 0.4 mL/hr $ New Bag/Syringe 11/29/2017 6:04 AM CDT 0.8 Units/hr 0.8 mL/hr K phos & NA phos (K PHOS NEUTRAL) tablet 1 tablet 1 tablet, Oral, ONCE, 1 dose, On Wed11/28/17 at 2330, Contains Phos 8 mmol, K+ 1.1 mEq, Na 13 mEq per tablet $ Given 11/28/2017 11:47 PM CDT 1 tablet magnesium sulfate 2 g in 50 mL bolus 2 g, at 25 mL/hr, Administer over 120 Minutes, Intravenous, ONCE, 1 dose, On Wed11/28/17 at 2330, Infuse at 1 gm/hr $ New Bag/Syringe 11/28/2017 11:52 PM CDT 2 g 25 mL/hr potassium chloride (KLOR-CON M) tablet 40 mEq 40 mEq, Oral, ONCE, 1 dose, On Wed11/29/17 at 0000, Do not crush or chew. $ Given 11/28/2017 11:47 PM CDT 40 mEq potassium chloride (KLOR-CON M) tablet 40 mEq 40 mEq, Oral, ONCE, 1 dose, On Wed11/29/17 at 0730, Do not crush or chew. $ Given 11/29/2017 7:38 AM CDT 40 mEq potassium chloride (KLOR-CON) packet 40 mEq 40 mEq, Oral, ONCE, 1 dose, On Wed11/30/17 at 0700, DISSOLVE IN 120 ML OF COLD WATER OR JUICE AND DRINK SLOWLY $ Given 11/30/2017 7:07 AM CDT 40 mEq potassium chloride 40 mEq in 0.9% NaCl 270 mL bolus 40 mEq, at 67.5 mL/hr, Administer over 4 Hours, Intravenous, ONCE, 1 dose, On Wed11/29/17 at 0000 $ New Bag/Syringe 11/29/2017 12:00 AM CDT 40 mEq 67.5 mL/hr potassium phosphate 15 mmol in dextrose 5 % 255 mL bolus 15 mmol, at 63.75 mL/hr, Administer over 4 Hours, Intravenous, ONCE, 1 dose, On Wed11/29/17 at 0730, 3 mmol phosphate = 4.4 mEq potassium $ New Bag/Syringe 11/29/2017 7:38 AM CDT 15 mmol 63.75 mL/hr documented in this encounter Active and Recently Administered Medications Times are shown in CDT. Scheduled Medication Order 11/28/2017 11/29/2017 11/30/2017 0.9% NaCl IV Bolus (COMPLETED) 500 mL, at 124.48 mL/hr, Administer over 241 Minutes, ONCE, 1 dose, On Wed11/30/17 at 0700 0947 ($ New Bag/Syringe - Provider: Kelli Gallegos RN)1204 (Stopped - Provider: Kelli Gallegos RN) cosyntropin (CORTROSYN) injection 0.25 mg (COMPLETED) 0.25 mg, Intravenous, ONCE, 1 dose, On Wed11/29/17 at 0815, Do not administer until after baseline cortisol level has been drawn. IntraMUSCular injection reconstitute with 1 mL NS IntraVENous injection dilute in 2 to 5 mL of NS, inject over 2 min 0829 ($ Given - Provider: Mann Hair RN) enoxaparin (LOVENOX) injection 40 mg 40 mg, Subcutaneous, DAILY AT 0600, 365 doses, First dose on Wed11/29/17 at 0600, Last dose on Wed11/28/18 at 0600, (for prefilled syringes) do not expel air bubble from the syringe prior to the injection Remind Patient to not rub injection site. Could cause hematoma. 0606 (Not Administered - Provider: Aziza James RN - Reason: Refused-Patient) 0607 (Not Administered - Provider: Del Bowers RN - Reason: Refused-Patient) insulin aspart (NovoLOG) pen 0-12 Units 0-12 Units, Subcutaneous, 3 TIMES DAILY WITH MEALS, 1095 doses, First dose on Wed11/29/17 at 1200, Last dose on Wed11/29/18 at 0800, . 150-200 = add 2 units 201-250 = add 4 units 251-300 = add 6 units, 301-350 = add 8 units 351-400 = add 10 units and contact MD for BG GREATER than 350 GREATER than 400 = add 12 units and contact MD for BG GREATER than 350 1412 ($ Given - Provider: Mann Hair RN)1858 ($ Given - Provider: Tresa Barillas RN) 0947 ($ Given - Provider: Kelli Gallegos RN)1124 ($ Given - Provider: Kelli Gallegos RN) insulin aspart (NovoLOG) pen 5 Units 5 Units (rounded from 4.536 Units = 0.08 Units/kg ? 56.7 kg), Subcutaneous, 3 TIMES DAILY WITH MEALS, 1095 doses, First dose on Wed11/29/17 at 1200, Last dose on Wed11/29/18 at 0800, Hold mealtime dose if blood glucose is LESS than 90 mg/dl Reduce DOSE by 50% if patient consumes LESS than 50% of meal 1412 ($ Given - Provider: Mann Hair RN - Comment: based on [phone] ($ Given - Provider: Tresa Barillas RN) 0947 ($ Given - Provider: Kelli Gallegos RN)1124 ($ Given - Provider: Kelli Gallegos RN) insulin glargine (LANTUS) pen 10 Units (COMPLETED) 10 Units, Subcutaneous, ONCE, 1 dose, On Wed11/29/17 at 0700, Obtain current Blood Glucose if necessary . WASTE DISPOSAL INSTRUCTIONS: Black Bin Disposal required. 0738 ($ Given - Provider: Mann Hair RN) insulin glargine (LANTUS) pen 10 Units 10 Units, Subcutaneous, DAILY, First dose on Wed11/30/17 at 0900, Until Discontinued, Obtain current Blood Glucose if necessary . WASTE DISPOSAL INSTRUCTIONS: Black Bin Disposal required. 0947 ($ Given - Provider: Kelli Gallegos RN) K phos & NA phos (K PHOS NEUTRAL) tablet 1 tablet (COMPLETED) 1 tablet, Oral, ONCE, 1 dose, On Wed11/28/17 at 2330, Contains Phos 8 mmol, K+ 1.1 mEq, Na 13 mEq per tablet 2347 ($ Given - Provider: Aziza James, RN) magnesium sulfate 2 g in 50 mL bolus (COMPLETED) 2 g, at 25 mL/hr, Administer over 120 Minutes, Intravenous, ONCE, 1 dose, On Wed11/28/17 at 2330, Infuse at 1 gm/hr 2352 ($ New Bag/Syringe - Provider: Aziza James RN) 0152 (Stopped - Provider: Aziza James RN) potassium chloride (KLOR-CON M) tablet 40 mEq (COMPLETED) 40 mEq, Oral, ONCE, 1 dose, On Wed11/29/17 at 0000, Do not crush or chew. 2347 ($ Given - Provider: Aziza James, MARY) potassium chloride (KLOR-CON M) tablet 40 mEq (COMPLETED) 40 mEq, Oral, ONCE, 1 dose, On Wed11/29/17 at 0730, Do not crush or chew. 0738 ($ Given - Provider: Mann Hair RN) potassium chloride (KLOR-CON) packet 40 mEq (COMPLETED)(Linked Group 1) 40 mEq, Oral, ONCE, 1 dose, On Wed11/30/17 at 0700, DISSOLVE IN 120 ML OF COLD WATER OR JUICE AND DRINK SLOWLY 0707 ($ Given - Provider: Del Bowers RN) potassium chloride 40 mEq in 0.9% NaCl 270 mL bolus (COMPLETED) 40 mEq, at 67.5 mL/hr, Administer over 4 Hours, Intravenous, ONCE, 1 dose, On Wed11/29/17 at 0000 0000 ($ New Bag/Syringe - Provider: Aziza James RN)0400 (Stopped - Provider: Aziza James RN) potassium phosphate 15 mmol in dextrose 5 % 255 mL bolus (COMPLETED) 15 mmol, at 63.75 mL/hr, Administer over 4 Hours, Intravenous, ONCE, 1 dose, On Wed11/29/17 at 0730, 3 mmol phosphate = 4.4 mEq potassium 0738 ($ New Bag/Syringe - Provider: Mann Hair, MARY)1225 (Stopped - Provider: Mann Hair, RN) Continuous Medication Order 11/28/2017 11/29/2017 11/30/2017 dextrose 5 % and 0.45% NaCl infusion (CANCELED) at 125 mL/hr, Intravenous, CONTINUOUS, Starting on Wed11/28/17 at 2345, Until Wed11/29/17 at 0633 2340 ($ New Bag/Syringe - Provider: Aziza James RN) 0920 (Stopped - Provider: Mann Hair RN) insulin regular human (humuLIN R; novoLIN R) 100 Units in 0.9% NaCl 100 mL infusion (CANCELED) 0-26.5 Units/hr (0-26.5 mL/hr), Intravenous, CONTINUOUS, Starting on Wed11/29/17 at 0115, Until Wed11/29/17 at 1024, Titrate Insulin Infusion per protocol based on the following weight range: 55.5-65.4 kg POC Glucose (mg/dL) POC glucose = 70-89 0 units/hr POC glucose = 90-99 0.2 units/hr POC glucose = 100-119 0.4 units/hr POC glucose = 120-139 0.8 units/hr POC glucose = 140-159 1.2 units/hr POC glucose = 160-179 2.6 units/hr POC glucose = 180-199 3.3 units/hr POC glucose = 200-219 3.9 units/hr POC glucose = 220-239 4.6 units/hr POC glucose = 240-259 5.3 units/hr POC glucose = 260-279 5.9 units/hr POC glucose = 280-299 6.6 units/hr POC glucose = 300-319 7.3 units/hr POC glucose = 320-339 7.9 units/hr POC glucose = 340-349 8.6 units/hr POC glucose = 350-379 9.3 units/hr POC glucose = 380-399 9.9 units/hr POC glucose greater than 400 10.6 units/hr Titrate as follows to achieve the target goal range (See order question) Bolus from the bag as directed in the bolus order . WASTE DISPOSAL INSTRUCTIONS: Black Bin Disposal required., Target POC glucose range: 140-180 mg/dL 0405 ($ New Bag/Syringe - Provider: Aziza James RN - Comment: [phone] (Rate Change - Provider: Aziza James RN - Comment: [phone] ($ New Bag/Syringe - Provider: Aziza James RN - Comment: [phone] ($ New Bag/Syringe - Provider: Aziza James RN - Comment: [phone] ($ New Bag/Syringe - Provider: Mann Hair, RN)4950 (Stopped - Provider: Mann Hair, RN) PRN Medication Order 11/28/2017 11/29/2017 11/30/2017 dextrose IV 12.5-25 g 12.5-25 g (25-50 mL), Intravenous, PRN, Bedside Glucose less than 70 mg/dL -If NOT able to eat and/or NPO and with IV Access, Starting on Wed11/28/17 at 2300, Until Wed11/30/17 at 1602, If NOT able to eat and/or NPO and with IV Access: For Bedside Glucose 50-69 mg/dL give 25 mls D50W IVP STAT For Bedside glucose 50 mg/dL or LESS verify with a second Bedside Glucose (from a different site) and give 50 mls D50W IVP STAT Re-check and Re-treat blood glucose EVERY 10-25 minutes until blood glucose GREATER than or equal to 80 mg/dl. NOTIFY PROVIDER OF HYPOGLYCEMIC EVENT. dextrose IV 12.5-25 g 12.5-25 g (25-50 mL), Intravenous, PRN, Bedside Glucose less than 70 mg/dL -If NOT able to eat and/or NPO and with IV Access, Starting on Wed11/29/17 at 1021, Until Wed11/30/17 at 1602, If NOT able to eat and/or NPO and with IV Access: For Bedside Glucose 50-69 mg/dL give 25 mls D50W IVP STAT For Bedside glucose 50 mg/dL or LESS verify with a second Bedside Glucose (from a different site) and give 50 mls D50W IVP STAT Re-check and Re-treat blood glucose EVERY 10-25 minutes until blood glucose GREATER than or equal to 80 mg/dl. NOTIFY PROVIDER OF HYPOGLYCEMIC EVENT. glucagon (GLUCAGEN) injection 1 mg 1 mg, Intramuscular, PRN, Bedside Glucose less than 70 mg/dL - If NOT able to eat and/or NPO and withOUT IV Access, Starting on Wed11/28/17 at 2300, Until Wed11/30/17 at 1602, If NOT able to eat and/or NPO and NO IV Access: For Bedside glucose 50-69 mg/dL Give 1 mg IM or SQ For Bedside Glucose LESS than 50 mg/dl verify with a second bedside glucose (from a different site) and Give 1 mg IM or SQ Re-check and Re-treat blood glucose EVERY 10-25 minutes until blood glucose GREATER than or equal to 80 mg/dl. NOTIFY PROVIDER OF HYPOGLYCEMIC EVENT. Reconstitute vial with 1 mL of sterile water for injection for a final concentration of 1 mg/mL; shake vial gently; use immediately and discard unused portion glucagon (GLUCAGEN) injection 1 mg 1 mg, Intramuscular, PRN, Bedside Glucose less than 70 mg/dL - If NOT able to eat and/or NPO and withOUT IV Access, Starting on Wed11/29/17 at 1021, Until Wed11/30/17 at 1602, If NOT able to eat and/or NPO and NO IV Access: For Bedside glucose 50-69 mg/dL Give 1 mg IM or SQ For Bedside Glucose LESS than 50 mg/dl verify with a second bedside glucose (from a different site) and Give 1 mg IM or SQ Re-check and Re-treat blood glucose EVERY 10-25 minutes until blood glucose GREATER than or equal to 80 mg/dl. NOTIFY PROVIDER OF HYPOGLYCEMIC EVENT. Reconstitute vial with 1 mL of sterile water for injection for a final concentration of 1 mg/mL; shake vial gently; use immediately and discard unused portion glucose (Diabetic Use) oral gel Oral, PRN, Other, Bedside Glucose less than 70 mg/dL -If able to eat and does not have swallowing difficulties, Starting on Wed11/28/17 at 2300, Until Wed11/30/17 at 1602, If able to eat and does not have swallowing difficulties: For Bedside Glucose 50 - 69 mg/dL Give 15 grams of oral carbohydrates - 1 glucose gel (see MAR) If patient refuses glucose gel, then offer: - 4 ounces of fruit juice OR - 4 ounces non-diet soda OR - 8 ounces of fat-free milk For Bedside Glucose LESS than 50 mg/dL verify with a second Bedside Glucose (from a different site) - If pt is symptomatic, do not delay treatment If the patient is exhibiting symptoms which are not consistent with the results obtained, confirm the glucose with a STAT laboratory test. Give 30 grams of oral carbohydrates - 2 glucose gels (see MAR) If patient refuses glucose gel, then offer: - 8 ounces of fruit juice OR - 8 ounces non-diet soda OR - 16 ounces of fat-free milk Re-check and Re-treat blood glucose EVERY 10-25 minutes until blood glucose GREATER than or equal to 80 mg/dl. NOTIFY PROVIDER OF HYPOGLYCEMIC EVENT. glucose (Diabetic Use) oral gel Oral, PRN, Other, Bedside Glucose less than 70 mg/dL -If able to eat and does not have swallowing difficulties, Starting on Wed11/29/17 at 1021, Until Wed11/30/17 at 1602, If able to eat and does not have swallowing difficulties: For Bedside Glucose 50 - 69 mg/dL Give 15 grams of oral carbohydrates - 1 glucose gel (see MAR) If patient refuses glucose gel, then offer: - 4 ounces of fruit juice OR - 4 ounces non-diet soda OR - 8 ounces of fat-free milk For Bedside Glucose LESS than 50 mg/dL verify with a second Bedside Glucose (from a different site) - If pt is symptomatic, do not delay treatment If the patient is exhibiting symptoms which are not consistent with the results obtained, confirm the glucose with a STAT laboratory test. Give 30 grams of oral carbohydrates - 2 glucose gels (see MAR) If patient refuses glucose gel, then offer: - 8 ounces of fruit juice OR - 8 ounces non-diet soda OR - 16 ounces of fat-free milk Re-check and Re-treat blood glucose EVERY 10-25 minutes until blood glucose GREATER than or equal to 80 mg/dl. NOTIFY PROVIDER OF HYPOGLYCEMIC EVENT. Linked Groups Order Group 1: potassium chloride (KLOR-CON) packet 40 mEq (COMPLETED)Jump to med 40 mEq, Oral, ONCE, 1 dose, On Wed11/30/17 at 0700, DISSOLVE IN 120 ML OF COLD WATER OR JUICE AND DRINK SLOWLY Or potassium chloride (KLOR-CON M) tablet 40 mEq (COMPLETED) 40 mEq, Oral, ONCE, 1 dose, On Wed11/30/17 at 0700, Do not crush or chew. documented in this encounter Care Teams Executive Manager Relationship Specialty Start Date End Date Jolanta Freeman MD PCP - General Pediatrics 05/24/13 documented as of this encounter
--- OUTSIDE RECORDS SUMMARY | 2024-05-10 18:53 | XMS_ITS | Encounter Summary ---
Author Organization [facility] Address [address] [facility] [place] [address] Phone Care Team Providers Care Freight Tallier Name Role Phone Carrie Joseph Primary Care Provider [phone] Naomi Sanches MD Unavailable Reason for Visit * Reason Comments Follow-up Diabetes Mellitus Encounter Details Date Type Department Care Team (Late st Contact Info) Description 06/01/2023 1:15 PM REGIONAL EDUCATION MANAGER Office Visit [facility] - Endocrinology - [place] [address] [place] [address] Naomi Sanches MD [address] [address] Type 1 diabetes mellitus without complication (HCC) (Primary Dx); Hypoglycemia; Other fatigue; Insulin pump titration Discharge Disposition: Discharged to home or Selfcare Social History Tobacco Use Types Packs/Day Years [...] Sign Reading Time Taken Comments Blood Pressure 106/74 06/01/2023 1:02 PM REGIONAL EDUCATION MANAGER Pulse 100 06/01/2023 1:02 PM REGIONAL EDUCATION MANAGER Temperature 36.6 ??C (97.8 ??F) 06/01/2023 1:02 PM CS T Respiratory Rate 18 06/01/2023 1:02 PM REGIONAL EDUCATION MANAGER Oxygen Saturation 96% 06/01/2023 1:02 PM REGIONAL EDUCATION MANAGER Inhaled Oxygen Concentration - - Weight 72.6 kg (160 lb) 06/01/2023 1:02 PM REGIONAL EDUCATION MANAGER Height - - Body Mass Index 29.26 05/22/2022 2:16 PM REGIONAL EDUCATION MANAGER documented in this encounter Patient Instructions * Patient Instructions* Naomi Sanches MD - 06/01/2023 1:15 PM REGIONAL EDUCATION MANAGER Please monitor blood sugar before each meal and at bedtime Please give bolus insulin using the Bolus Wizard Please bring blood sugar log for review at the next visit Contact Endocrinology Clinic for low blood sugar events Follow up visit in 1 month RULE OF 15: If you have signs/symptoms of low blood sugar (hypoglycemia),and/or your blood sugar isless than 70 mg/dl, you may choose one of the below treatments (~15 gm of carbohydrate):glucose tablets or 1?2 glass (4 oz.) of apple juice or 1/2 glass (4 oz.) of clear regular soda and recheck blood sugar in 15 minutes, If not above 80 mg/dl, retreat treatment until blood sugar is above 80 mg/dl.Once blood sugar is above 80-90 mg/dL, please give insulin as scheduled. Look at your feet, top and bottom every morning. If you have any signs of infection, such as:areas,change in feeling or temperature, swelling, blisters, or cracks in the skin, call your doctor rightaway. Apply lotion to dry skin areas to prevent cracks. Keep the skin between your toes clean and dry. ONAL EDUCATION MANAGER ONAL EDUCATION MANAGER documented in this encounter Progress Notes * Naomi Sanches MD - 06/01/2023 1:15 PM CST Subject&Objective Karina Fuchs is a 27-year-old woman who comes to the Endocrinology office to discuss management of type 1 diabetes mellitus. The patient's diabetes is complicated by gastroparesis. Other pertinent health history includes cyclic vomiting. The patient was initially diagnosed with diabetes approximately 12 years ago. Her insulin pump is a T slim control IQ device. The patient's current basal rates program is 0.5 units an hour at midnight, 1 units an hour at 3 am, 1 units an hour at 8 am, and 1 units an hour at 7:00 pm. Insulin to carbohydrate ratio is 1:8. Insulin sensitivity factor is 1:30, and the patient's blood glucose target is programmed at 120 to 120 mg/dL. Active insulin time is set to 5 hours. The patient reports occasional, mild hypoglycemic events with intact symptoms of hypoglycemia awareness. Most episodes occur overnight and early in the morning. The patient had low blood sugar eventsrequiring third republican intervention. Unfortunately, the patient can't use [employer] CGM due to high co-pay. Review of her insulin pump download for the past four weeks showed that average blood glucose was 199 mg/dL and total daily dose of insuliln is ~38 units/day. Hemoglobin A1c obtained by POC testing today was 5.3%, improved from the previous measurement of 5.7% obtained in January 2023. Physical Exam Vitals: 06/01/23 1302 BP: 106/74 Pulse: 100 Resp: 18 Temp: 97.8 ??F (36.6 ??C) SpO2: 96% Weight: 160 lb (72.6 kg) Constitutional: appears well-developed and well-nourished. No acute distress. Head: Normocephalic and atraumatic. Cardiovascular: Normal rate and regular rhythm Pulmonary/Chest: Effort normal Lab Results Component Value Date HGBA1C 5.3 06/01/2023 Assessment and Plan Assessment Karina Fuchs is a young woman with type 1 diabetes mellitus whose glycemic control was suboptimalbased on review of her insulin pump download. Her hemoglobin A1c is well below the patient's [employer] treatment target of less than 7%. Low blood sugar events overnight indicate that there is room to reduce basal rate overnight. Treatment consideration and hypoglycemic precaution were discussed with her at some length. She will reduce basal rate to 0.4 units an hour at MN and0.7 units an hour at 3:00 am. The patient will return for office reevaluation in 3 months. PLAN: 1. Change basal rate to 0.4 units an hour at MN and 0.7 units an hour at 3:00 am 2. Monitor blood sugar QAC/QHS 3. Give bolus insulin using the Bolus Wizard 4. Bring CBG log for review 5. Contact Endocrinology Clinic for low blood sugar events 6. RTC in 3 months Hypoglycemia PLAN: 1. Consistent CHO diet 2. Rule of 15 Fatigue PLAN: 1. Check CMP and thyroid function test 2. Further plan based on #1 Total time spent on this encounter on this date of service, including pre-visit review of separately obtained history, [id number] interaction performing medically appropriate physical exam, patientcounseling/education, interpretation of diagnostic results, care coordination and documentation was31 minute Naomi Sanches MD 06/01/2023 ONAL EDUCATION MANAGER documented in this encounter Plan of Treatment Scheduled Orders Name Type Priority Associated Diagnoses Orde r Schedule COMPLETE BLOOD COUNT (CBC) WITH DIFF Lab Routine Type 1 diabetes mellitus without complication (HCC) Hypoglycemia Other fatigue Expected: 02/28/2024, Expires: 08/28/2024 CMP (COMPREHENSIVE METABOLIC PANEL) Lab Routine Type 1 diabetes mellitus without complication (HCC) Hypoglycemia Other fatigue Expected: 02/28/2024, Expires: 08/28/2024 THYROID STIMULATING HORMONE (TSH) Lab Routine Type 1 diabetes mellitus without complication (HCC) Hypoglycemia Other fatigue Expected: 02/28/2024, Expires: 08/28/2024 THYROXINE (T4) FREE Lab Routine Type 1 diabetes mellitus without complication (HCC) Hypoglycemia Other fatigue Expected: 02/28/2024, Expires: 08/28/2024 documented as of this encounter Procedures Procedure Name Priority Date/Time Associated Diagnosis Comments POCT GLYCOSYLATED HEMOGLOBIN Routine 06/01/2023 1:05 PM REGIONAL EDUCATION MANAGER Type 1 diabetes mellitus without complication (HCC) documented in this encounter Results * POCT GLYCOSYLATED HEMOGLOBIN (06/01/2023 1:05 PM REGIONAL EDUCATION MANAGER) HGB-A1C 5.3 4 - 6 % Blood 06/01/2023 1:0 5 PM REGIONAL EDUCATION MANAGER us Naomi Sanches MD POINT OF CARE TESTING (MANUAL) F inal Result documented in this encounter Visit Diagnoses Diagnosis Type 1 diabetes mellitus without complication (HCC)- Primary Type I (juvenile type) diabetes mellitus without mention of complication, not stated as uncontrolled Hypoglycemia Hypoglycemia, unspecified Other fatigue Insulin pump titration Fitting and adjustment of insulin pump documented in this encounter Care Teams Freight Tallier Relationship Specialty Start Date End Date Carrie Joseph PA [address] [facility] [address] [place], [place] [id number] PCP - General Adult Medicine 11/11/18 Naomi Sanches MD [address] [address] Consulting Physician Endocrinology 05/21/20 documented as of this encounter
--- OUTSIDE RECORDS SUMMARY | 2024-05-10 18:53 | XMS_ITS | Clinical Summary ---
Author Organization [facility] Address [address] [place] [address] Phone Care Team Providers Care Financial Recruiter Name Role Phone Carrie Joseph Primary Care Provider [phone] Naomi Sanches MD Unavailable Allergies No known active allergies Medications Glucose Blood (BLOOD GLUCOSE TEST STRIPS) Strip 1 Strip by Does not apply route 4 times daily. 400 Each 3 0 Active ReliOn Pen Adin 32G X 4 MM Misc 4 times a day 400 Pen Needle 3 1 Active Insulin Syringe-Needle U-100 (INSULIN SYRINGE 1CC/31GX5/16 ) 31G X 5/16 1 ML Misc 4 times a day 400 Each 3 1 Active omeprazole (PriLOSEC) 20 MG CAPSULE DELAYED RELEASEIndicati ons:Gastroesoph ageal reflux disease with esophagitis without hemorrhage Take 1 Capsule by mouth 2 times daily (before meals). Take 30 minutes before meal with protein 180 Capsule 1 2 Active Continuous Blood Gluc Transmit (Dexcom G6 Transmitter) Misc 1 Each by Does not apply route every 90 days. Change transmitter every 90 days. 1 Each 3 2 Active insulin glargine (Lantus SoloStar) 100 UNIT/ML Solution Pen-injector 25 Units by Subcutaneous route every evening. 30 mL 1 2 Active omeprazole (PriLOSEC) 40 MG CAPSULE DELAYED RELEASE Take 1 Capsule by mouth daily. 8 Active metoclopramide (REGLAN) 10 MG Tablet TAKE 1 TABLET BY MOUTH EVERY 6 HOURS FOR NAUSEA DIRECTED 3 Active scopolamine (TRANSDERM-SCOP ) 1 MG/3DAYS PATCH 72 HR APPLY 1 PATCH TO THE SKIN DIRECTED EVERY 72 HOURS 4 Active ondansetron (ZOFRAN-ODT) 4 MG TABLET DISPERSIBLE Take 1 Tablet by mouth every 8 hours as needed for Nausea - 1st line. 10 Tablet 4 Active Continuous Glucose Delivery Associate (Dexcom G7 Delivery Associate) Device Check blood glucose before each meal and at bedtime 1 Each 4 Active Continuous Glucose Sensor (Dexcom G7 Sensor) Misc Every 10 days 9 Each 3 4 Active insulin lispro (HumaLOG) 100 UNIT/ML Solution INJECT UP TO 60 UNITS UNDER THE SKIN PER DAY PER INSULIN PUMP SETTINGS 60 mL 1 4 Active Active Problems Problem Noted Date Diagnosed Date Class 1 obesity due to exces s calories with serious comorbidity and body mass index (BMI) of 32.0 to 32.9 in adult 11/16/2019 Type 1 diabetes mellitus without complication Hypoglycemia 11/11/2018 Diabetic ketoacidosis associ ated with type 1 diabetes mellitus 01/03/2017 Hyperkalemia 01/03/2017 Hypernatremia 01/03/2017 Encounters Date Type Department Care Team Description 03/24/2024 Refill [facility] - Endocrinology - [place] [address] [place] [address] Naomi Sanches MD Medication Refill from Last 3 Months Immunizations Immunization Administration Dates Next Due DTAP VACCINE 10/31/2001 DTP-Hib 1996,1996 Hepatitis A Vaccine, Pediatr ic/adolescent, 2 Dose Schedule 03/13/2011,07/14/2010 Hepatitis A, Pediatric, Unsp ecified Formulation 07/14/2010 Hepatitis B Vaccine, Pediatric/adolescent 1996,1996 Inactivated Polio Vaccine 11/01/2001 Influenza Vaccine greater than 3 yrs 01/01/2017 Influenza, Injectable, Quadrivalent 05/26/2018 Influenza, Seasonal, Injectable, Undefined 01/01,05/13/2016 MMR Vaccine 11/01/2001 Meningococcal C Conjugate Vaccine 12/11/2009 Meningococcal Vaccine 10/25/2012 OPV 1996,1996 TDAP Vaccine 02/04/2023,09/09/2016,12/11/2009 Varicella Vaccine Live 07/14/2010 Family History Medical History Relation Name Comments Anemia Mother Relation Name Status Comments Mother Alive Social History Tobacco Use Types Packs/Day Years Used Date Smoking Tobacco: Never Smokeless Tobacco: Never Tobacco Cessation:Counseling Given: Not Answered Alcohol Use Standard Drinks/Week Comments Yes 0 [...] Reading Time Taken Comments Blood Pressure 116/78 12/02/2023 10:12 AM CDT Pulse 93 12/02/2023 10:12 AM CDT Temperature 36.5 ??C (97.7 ??F) 12/02/2023 10:12 AM C DT Respiratory Rate 20 12/02/2023 10:12 AM CDT Oxygen Saturation 100% 12/02/2023 10:12 AM CDT Inhaled Oxygen Concentration - - Weight 80.3 kg (177 lb) 12/02/2023 10:12 AM CDT Height 157.5 cm (5' 2 ) 09/01/2023 9:44 AM CDT Body Mass Index 32.37 09/01/2023 9:44 AM CDT Plan of Treatment Health Maintenance Due Date Last Done Comments Diabetes: Eye Exam 1996 Diabetes: Foot Exam 1996 Hepatitis C Virus (HCV) Screening 1996 Pneumococcal Immunization Combined (1 of 2 - PCV) 2015 Pap Smear 2017 Diabetes: Nephropathy Screening 07/21/2018 07/21/2017, 02/03/2017, 01/03/2017 Influenza Immunization (#1) 2024 05/26/2018, 0 01/01/2017 SARS-COV-2 Immunization ( season) 2024 05/11/2021 Diabetes: Hemoglobin A1c 06/03/2024 024, 09/01/2023, 06/01/2023, Additional history exists DTaP/Tdap/Td Immunization (7 - Td or Tdap) 02/04/2033 02/04/2023, 09/09/2016, 12/11/2009, Additional history exists Respiratory Syncytial Virus (RSV) Immunization (Adult) (1 - 1-dose 75+ series) 2071 Hepatitis B Immunization Completed 997, 1996, 1996 Meningococcal Immunization (ACWY) Completed 10/25/2012 Rotavirus Immunization Aged Out No lo nger eligible based on patient's age to complete this topic Procedures Procedure Name Priority Date/Time Associated Diagnosis Comments POCT GLYCOSYLATED HEMOGLOBIN Routine 12/02/2023 10:21 AM CDT Type 1 diabetes mellitus without complication (HCC) CMP (COMPREHENSIVE METABOLIC PANEL) STAT 07/21/2017 9:00 PM CDT from Last 3 Months or Most Recently Relevant to Health Maintenance Results * (ABNORMAL) POCT GLYCOSYLATED HEMOGLOBIN (12/02/2023 10:21 AM CDT) HGB-A1C 6.5(A) 4 - 6 % Blood 12/02/2023 10:2 1 AM CDT us Naomi Sanches MD POINT OF CARE TESTING (MANUAL) F inal Result * (ABNORMAL) CMP (Comprehensive Metabolic Panel) (07/21/2017 9:00 PM CDT) SODIUM 139 131 - 143 mmol/L 07/21/2017 10:05 PM CDT [facility] POTASSIUM 4.7 3.5 - 5.1 mmol/L 07/21/2017 10:05 PM CDT [facility] CHLORIDE 94(L) 100 - 110 mmol/L 07/21/2017 10:05 PM CDT [facility] CO2, VENOUS 21(L) 22 - 32 mmol/L 07/21/2017 10:05 PM CDT [facility] ANION GAP 28.7(H) 8.0 - 20.0 mmol/L 07/21/2017 10:05 PM [facility] GLUCOSE 310(H) 70 - 105 mg/dL 07/21/2017 10:05 PM [facility] BUN 19 10 - 31 mg/dL 07/21/2017 10:05 PM [facility] CREATININE, BLOOD 0.46(L) 0.60 - 1.30 mg/dL 07/21/2017 10:05 PM [facility] BUN/CREATININE RATIO 41(H) 12 - 20 ratio 07/21/2017 10:05 PM [facility] TOTAL PROTEIN 8.1 6.0 - 8.3 g/dL 07/21/2017 10:05 PM [facility] ALBUMIN 4.9 3.5 - 5.2 g/dL 07/21/2017 10:05 PM [facility] A/G RATIO 1.5 1.0 - 2.0 07/21/2017 10:05 PM [facility] CALCIUM 10.2 8.9 - 10.3 mg/dL 07/21/2017 10:05 PM [facility] T BILI 0.4 0.3 - 1.2 mg/dL 07/21/2017 10:05 PM [facility] SGOT (AST) 12 1 - 32 U/L 07/21/2017 10:05 PM [facility] SGPT (ALT) 9 1 - 33 U/L 07/21/2017 10:05 PM [facility] ALKALINE PHOSPHATASE 116(H) 35 - 105 U/L 07/21/2017 10:05 PM [facility] GFR, EST. NONAFRICAN >60 >=60 07/21/2017 10:05 PM [facility] GFR, EST. >60 >=60 07/21/2017 10:05 PM [facility] Comment: Creatinine Clearance is the preferred criteria for selecting drug dose adjustments in renally impaired patients. ??The GFR is provided as additional pertinent clinical information. GFR is reported in mL/min/1.73 sq m. Blood specimen (specimen) Venous Catheter (IV) / Unknown 07/21/2017 9:00 PM CDT 07/21/2017 9:42 PM CDT us Renzo Nuñez MD CHEMISTRY ORDERABLES Chanell asia Result [facility] [address] [place] [address] from Last 3 Months or Most Recently Relevant to Health Maintenance Insurance [place] [id number] Advance Directives * Full Code (Latest Code Status on File) Date Activated Date Inactivated Comments 02/03/2017 8:32 PM 02/06/2017 8:21 PM CPR-Full Lewis atment: FULL ARREST: Attempt Resuscitation/CPR wit intubation and mechanical ventilation. PRE-ARREST: Use entire range of life support measures to stabilize the patient. * Full Code Date Activated Date Inactivated Comments 01/03/2017 8:30 PM 01/06/2017 8:06 PM CPR-Full Treat ment: FULL ARREST: Attempt Resuscitation/CPR wit intubation and mechanical ventilation. PRE-ARREST: Use entire range of life support measures to stabilize the patient. Care Teams Financial Recruiter Relationship Specialty Start Date End Date Carrie Joseph PA [address] [place] [address] [place] [address] PCP - General Adult Medicine 11/11/18 Naomi Sanches MD [address] [address] Consulting Physician Endocrinology 05/21/20
--- OUTSIDE RECORDS SUMMARY | 2024-05-10 18:53 | XMS_ITS | Encounter Summary ---
Author Organization [facility] [address] [place] [address] Care Team Providers Care Student Loan Counselor Name Role Phone Jolanta Freeman MD Primary Care Provider + [phone] Reason for Visit * Auth/Cert Specialty Diagnoses / Procedures Referred By Rachael frey Referred To Contact Diagnoses DKA; insulin drip Referral ID Status Reason Start Date Expiration Date Visits Re quested Visits Authorized [id number] 1 1 Encounter Details Date Type Department Care Team (Latest Contact Info) Description 12/09/2017 3:35 PM CDT - 12/10/2017 6:04 PM CDT Hospital Encounter [facility] 4 ICU MEDICAL [address] [place] [address] Satinder Landry MD [address] [place] [address] Avni Desouza MD [address] [facility] [address] [place] [address] Sam Crews MD [address] [address] General Medicine Discharge Disposition: Home or Self Care [...] Sign Reading Time Taken Comments Blood Pressure 113/68 12/10/2017 11:00 AM CDT Pulse 91 12/10/2017 11:00 AM CDT Temperature 36.7 ??C (98.1 ??F) 12/10/2017 11:00 AM C DT Respiratory Rate 17 12/10/2017 11:00 AM CDT Oxygen Saturation 100% 12/10/2017 11:30 AM CDT Inhaled Oxygen Concentration - - Weight 50 kg (110 lb 3.7 oz) 12/09/2017 3:39 PM CDT Height 154.9 cm (5' 1 ) 12/09/2017 3:39 PM CDT Body Mass Index 20.83 12/09/2017 3:39 PM CDT documented in this encounter Functional Status Functional Status Response Date of Assess ment Is person deaf or have serious hearing difficult y? No 12/09/2017 Is person blind or have serious difficulty seein g? No 12/09/2017 Does person have serious dif ficulty walking/climbing stairs? No 12/09/2017 Does person have difficulty dressing/bathing? No 12/09/2017 Does person have difficulty doing errands alone? No 12/09/2017 Cognitive Status Response Date of Assessm ent Does person have difficulty concentrating/remembering/making decisions? No 12/09/2017 documented as of this encounter Discharge Summaries * Gigi Polanco MD - 12/10/2017 6:04 PM CDT Physician Discharge Summary Name: Karina Menjivar Date of : 1995 Admit date:12/09/2017 Discharge date: 12/10/2017 Code Status at Discharge: Full Code Admitting Physician:Satinder Landry MD Attending Physician:Avni Desouza MD Discharge Physician: Gigi Polanco MD Disposition: Home Condition at discharge: stable Diagnosis: Diabetic ketoacidosis Hospital Course: 22-year-old female patient with history of type 1 diabetes mellitus was transferred from another facility as per patient's request for worsening DKA which started on 12/06/2017 with symptoms of polyuria,vomiting and abdominal pain.In the outside facility patient has an anion gap of 16 for which she is treated with subcutaneous insulin but not with insulin drip.her symptoms and anion gap improved over the the 2 days and on 12/09/2017 patient developed recurrent symptoms and found to have anion gap of 23 and beta hydroxybutyrate of 7.4 She had 3 episodes of recurrent DKA in 2018. When she arrived to the hospital she has no symptoms of abdominal pain,nausea,vomiting and her labs are significant for anion gap of 15 and hypophosphatemia. She was started on insulin drip, D5 1/2NS in the ICU and Oral supplements are provided to correct her hypophosphatemia which improved her symptoms and labs significantly. Her vitals are stable, and anion gap is closed now and she is tolerating oral feeds. She is unaware of the DKA precipitating factor and she denies any tingling or numbness in the extremities. She reported compliance with medications and diet.Internal medicine team examined the patient thoroughly and explained in detail about the instructions to follow after the discharge Exam on the day of discharge: Physical Exam Constitutional: She is oriented to person, place, and time. No distress. Cardiovascular: Normal rate, regular rhythm and normal heart sounds. No murmur heard. Pulmonary/Chest: Effort normal and breath sounds normal. No respiratory distress. She has no wheezes. Abdominal: Soft. Bowel sounds are normal. She exhibits no distension. There is no tenderness. Musculoskeletal: She exhibits no edema. Neurological: She is alert and oriented to person, place, and time. Laboratory & Imaging Studies: BUN-3 Creatinine -0.31 Sodium- I41, potassium -3.2 Anion gap trended down from 15 to 10 Serum phosphorus-4.4 Labs Pending Culture MRSA and VRE Consultations None Discharge Orders Discharge Procedure Orders Why you were hospitalized Order Specific Question Answer Comments Your discharge diagnosis is: DKA, type 1 [[id number]] Follow up with Primary Care Provider (PCP) Our records show your Primary Care Provider (PCP) is Jolanta Freeman MD. Order Specific Question Answer Comments Follow Up Instructions: Follow up with PCP in one week with home blood glucose readings Diabetic diet -- Limit your carbohydrates to 45-60g Carbohydrates per meal. ?? If follow up appointment has not been made, patient to call physician for appt ?? Patient to bring all medications to next visit Discharge Time:greater than 30 minutes Allergies: No Known Allergies Current Discharge Medication List CONTINUE taking these medications which have NOT CHANGED Instructions Authorizing Provider insulin glargine vial Commonly known as: LANTUS Quantity Dispensed: 8 Each Inject 12 Units subcutaneously at bedtime Kevin Chiu insulin lispro 100 UNIT/ML vial Commonly known as: HumaLOG Pt specific sliding scale based off diet CC: Jolanta Freeman Associated attestation - Avni Desouza MD - 12/10/2017 7:10 PM CDT Pt seen along with resident . I independenlty examined the pt, reviewed old charts and current labs and imaging Agree with residents discharge note Reviewed past medical, social, family history, surgical history and this is included in the resident's note 22 yr old pt admitted with recurrent DKA , improved with insulin dka protocol and transitioned to subcut insulin Counseled on medication adherence Day of dc exam PE- lungs cta b/l s1s2 n abd- soft nt nd bs, no guarding or rigidity documented in this encounter Discharge Instructions * Discharge Instructions* Catarina Mendoza RN - 12/10/2017 2:36 PM CDT PLEASE CALL JANNETH WITH [facility], # [phone] AFTER DISCHARGE TO [facility]. documented in this encounter Medications at Time of Discharge Medication Sig Dispensed Refills Start Date End Date insulin glargine (LANTUS) vial Inject 12 Units subcutaneously at bedtime 8 Each 11 11/30/2017 12/30/2017 insulin lispro (HUMALOG) 100 UNIT/ML vial Pt specific sliding scale based off diet 02/07/2018 documented as of this encounter Progress Notes * Daphnie Abraham RN - 12/10/2017 4:48 PM CDT Unable to see patient prior to discharge. Daphnie Abraham RN [address] * Catarina Mendoza RN - 12/10/2017 3:13 PM CDT Unable to complete case management screening interview prior to discharge. Chart was reviewed, CM not notified of any needs by other team members prior to discharge. Catarina Mendoza RN CCM X * Bobbi Kaba RN - 12/10/2017 2:19 PM CDT Remains alert oriented x4, denies nausea no vomiting, Pt is being discharged home ,instructions given regarding medications/insulin ,follow check up with MD, ADLs,/activity, diet, pt verbalized understanding on instructions given, picc line on right upper arm discontinued, pressure applied to puncture site after removal, very minimal bleeding noted, sterile 4 x4 drgs applied to site, good radial pulses * Soraya Segal RN - 12/10/2017 3:14 AM CDT Problem: Glycemia Imbalance Goal: Clinical indication of glycemia balance is achieved Outcome: Ongoing Blood sugars now in normal range Problem: Nutrition Goal: Nutritional status is improving Outcome: Ongoing Pt on diabetic diet Problem: Hemodynamic Status/Cardiac Output Goal: Patient has stable vital signs and fluid balance Outcome: Ongoing Pt taking PO fluids and voiding * Trisha Little MD - 12/09/2017 6:43 PM CDT Bus Driver/Monitor Accept Note I have read and reviewed all of the previous medical records and details of the admission and hospitalization. Attending: Dr. Radha Amaro MD Resident/Histological Illustrator: Drs. Nguyễn/ Anabel Code Status: Full Code Summary Statement: 22 year old female patient with history of type 1 DM, (recurent DKA - 3 episodes this year) was transferred from another facility to here for worsening DKA. She developed nausea, vomiting, diarrhea on 06 December and was admitted in the previous facility. Her initial AG was 16, was managed with subcutaneous insulin (not insulin drip) and IVF. Later her AG increased to 26 with bicarbonate 10, PICC line was placed and started on insulin drip which was later discontinued without improvement in AG and the patient was transferred to here on patient's request. Up on arrival her AG - was 15 (without albumin correction), hypophosphatemia. She was started on Insulin drip, D5 1/2NS in the ICU. Her vitals are stable, AG is closed now, she is tolerating oral feeds and is being transferred to floor. She was using insulin pump, which was stopped during . Her current home regimen is Lantus 12 U and sliding scale, she reports medication compliance and diet control. She unaware of the DKA precipitating factor. She denies any tingling/numbness in the extremities. Pertinent Physical Exam: Patient Vitals for the past 24 hrs: Temp Pulse Resp BP 12/09/17 1830 - (!) 110 14 124/80 12/09/17 1815 - 109 11 115/82 12/09/17 1800 - (!) 117 14 115/80 12/09/17 1745 - 103 17 108/76 12/09/17 1730 - 105 17 110/71 12/09/17 1715 - 92 22 101/60 12/09/17 1630 - 104 22 100/54 12/09/17 1615 - 107 19 108/55 12/09/17 1600 - 102 20 110/53 12/09/17 1545 - 107 17 101/59 12/09/17 1539 98 ??F (36.7 ??C) - - - ROS - negative for any symptoms Physical examination AOx3, well developed female patient resting comfortably. ZORAIDA, EOMI, no FND, S1.S2 normal, no murmer Lungs - clear, no crackles Abdomen - soft, BS normal No pedal edema Epic Active Problem List: Patient Active Problem List Diagnosis Date Noted ??? High anion gap metabolic acidosis 12/09/2017 Priority: Not Prioritized ??? Type 1 diabetes mellitus with ketoacidosis without coma 11/28/2017 Priority: Not Prioritized Assessment & Plan Type 1 DM, DKA resolved Lantus 12 U Stop insulin drip and D5 after one hour of lantus Start her on medium sliding scale Sodium phosphate 45 mmol in D5 Continue oral diabetic diet Follow up with Dr. Elder Hernandez after discharge D/w IM attending, Dr. Radha Little MD Associated attestation - Prem Garcia MD - 12/10/2017 5:34 AM CDT [facility] ICU TRANSFER ACCEPTANCE NOTE Patient was seen and examined by me on 12/10/2017 5:25 AM Pt seen and examined by me today. I have independently interviewed and examined this patient. I agree with the exam and plan per the pharmacy intern's note. I directly participated in the care of this patienttoday with the resident and reviewed the notes, orders, labs and reports in [facility]. 22 year old female patient with history of DMT1 who was transferred from an outside hospital for worsening DKA. She developed nausea, vomiting, diarrhea on 12/06/2017 and was admitted to the previous facility. Her initial AG was 16 and she was managed with subcutaneous insulin and IV fluids. She was placed on an insulin drip at that time. Her AG later increased to 26. She then had a PICC line placed and was started on insulin drip which was later discontinued without improvement in anion gap. Thepatient asked to be transferred to [place]. She was admitted to the ICU on 12/09/2017 and has beenweaned off of insulin drip. AG is 8. Her phosphorous is noted to be 1.1. BUN/creat- 4/0.46. bqiG6p-4.5. Further history is the per the pharmacy intern's note which I have closely reviewed. ?? Vitals: 12/10/17 0030 12/10/17 0110 12/10/17 0200 12/10/17 0300 BP: 84/48 91/44 95/53 86/42 Pulse: 86 96 93 95 Resp: 17 16 16 17 Temp: SpO2: 99% 100% 100% 100% Weight: EXAM GEN: AOx3, resting comfortably. H/N: PERLLA, EOMI, JVD flat CVS: S1.S2 normal, no murmer Lungs - CTA bilat, no wheezing or rales Abdomen - soft, NT, BS normal EXT- No pedal edema Neuro- non focal Recent Labs Component Name 12/10/1732312/09/17162211/30/17 03311/28/179 WBC 6.3 5.9 6.6 - 7.4 RBC 3.76* 3.97 4.24 - 4.45 HGB 10.6* 11.2* 11.9* - 12.4 HCT 31.2* 33.6* 34.0* - 36.0 MCV 83.0 84.6 80.2* - 80.9* MCHC 34.0 33.3 35.0 - 34.4 PLTCOUNT 256 293 - - - NEUTPCT 37.1* 40.6* - - - LYMPHPCT 49.7* 45.0* - - - MONOCYTPCT 12.3 12.9 - - - EOSINPCT 0.3 0.0 - - - BASOPHILPCT 0.3 0.3 - - - GRANSIMMPCT 0.3 1.2* - - - NEUTABS 2.33 2.40 - - 1.92 LYMPHABS 3.12 2.66 - - - BASOABS 0.02 0.02 - - - IMMGRANSABS 0.02 0.07* - - - - = values in this interval not displayed. Recent Labs Component Name 12/09/17210612/09/17162211/30/17330 SODIUM 136 135* - POTASSIUM 3.6 3.7 3.4* CHLORIDE 109* 106 - CO2 19* 14* 25 BUN 4* 4* 5* CREATININE 0.46* 0.50 0.3* GLUCOSE 143* 106 - CALCIUM 7.2* 8.1* 8.7 Recent Labs Component Name 12/09/17 1623 TROPONINI <0.015 Recent Labs Component Name 12/09/17 2107 11/28/17 2229 ALBUMIN 2.8* - ALKPHOS - 66 ALT - 6 AST - 9 No results for input(s): BNP, NTPROBNP in the last 71084 hours. Recent Labs Component Name 11/28/17 2229 INR 1.1 Recent Labs Component Name 11/28/17 2229 PTT 25.2 Recent Labs Component Name 11/28/17 2229 TSH 0.727 MEDICATIONS FOR CURRENT ENCOUNTER: ?? SCHEDULED MEDICATIONS: ?? Followed by ?? heparin injection 5,000 Units, Subcutaneous, BID ?? insulin aspart (NovoLOG) pen 0-12 Units, Subcutaneous, TID WC ?? insulin glargine (LANTUS) pen 12 Units, Subcutaneous, AT BEDTIME ?? sodium phosphate 45 mmol in dextrose 5 % 265 mL bolus, Intravenous, Once ?? [COMPLETED] 0.9% NaCl infusion, Intravenous, BOLUS IV ?? [COMPLETED] potassium chloride 20 mEq in 100 mL SW bolus, Intravenous, Once ?? [COMPLETED] potassium chloride 20 mEq in 100 mL SW bolus, Intravenous, Once ?? CONTINUOUS MEDICATIONS: ?? lactated ringers infusion, Intravenous, Continuous ?? PRN MEDICATIONS: ?? dextrose IV 12.5-25 g, Intravenous, PRN ?? glucagon (GLUCAGEN) injection 1 mg, Intramuscular, PRN ?? glucose (Diabetic Use) oral gel, Oral, PRN A/P -- Type 1 DM presenting with DKA Resolved Possibly due to medical non compliance She has been weaned off of insulin She has been transitioned to lantus and SSI DM education -- Hypophosphatemia Replete IV -- the remainder of the assessment/plan is per the pharmacy intern's/resident's H&P note which I have reviewed and I agree with. I have closely reviewed this patient's old records, labs and x ray reports in [facility] I have reviewed the ER physicians and ER nurses records in [facility] I spoke with the pharmacy intern and resident in detail about the plan of care. ?? Prem Garcia MD * Evelina Avila RN - 12/09/2017 6:42 PM CDT SHIFT SUMMARY: Afebrile. Pt A+Ox4. Gait steady to restroom. ST 100-130s (c exertion). SBP 100-120s.Peripheral pulses easily palpable. Mild edema noted to feet which pt reports is normal . Lungs clear and sats maintained 100% on RA. Pt denies nausea and tolerated dinner well. -BM. Pt voids w/o issues. SHEREE PICC infusing c IVF and electrolytes per glycemic protocol. Report given to oncoming RN. Evelina Avila RN 12/09/2017 6:45 PM * Abdirahman Bruce MD - 12/09/2017 6:00 PM CDT I personally gave sign out to the SUPERVISOR COIN MACHINE Nuno Buckley. Accepting physician is Dr. Campuzano. Abdirahman Bruce MD documented in this encounter H&P Notes * Kiat Galindo - 12/10/2017 12:48 PM CDT . Kita Galindo Attending: Dr. Avni Desouza Office Visit Note [facility] Reason for Visit: Establish care: 1st visit Insurance Information: Payor/Plan Subscriber Name Rel Member # Group # [facility] [id number] [address] History of Present Illness: Patient is a 22 yo CF with PMH of Type 1 DM (diagnosed at age 12) complicated by multiple admissions for DKA, the most recent on 11/28/17, who presented to the ED at [facility] on 12/06/17 with abdominal pain, nausea, vomiting, and diarrhea. Her labs were significant for anion gap of 16 and she was initially treated with IVF and subq insulin. On 12/09/17, her anion gap increased to 23 with beta hydroxy butyrate level of 7.4. A PICC line was placed and she was started on an insulin drip.Patient reports her mother requested that she be transferred here to [place] as she was not improving. Upon arrival here, her anion gap was 15 with hypophosphatemia. She was started on insulin drip and IVF. Patient reports she is compliant with her insulin medications. She denies fevers, chills, chest pain, SOB, diaphoresis. Since being transferred to the floor she reports improvement in her symptoms, her abdominal pain, N/V/D have all resolved. She gave in October of last year and had to stop her insulin pump which she reports she did very well with. She has had increased psychological stress related to issues with the estranged father of her child but she reports feeling safe at home with hermother. ROS General: Negative for recent weight gain/loss, negative for appetite changes Skin: Negative for rash, negative for bruising HEENT: Negative for headaches. Negative for blurred vision. Negative for ear pain or tinnitus. Negative for recent colds, runny nose, or sore throat. Respiratory: Negative for cough, SOB, wheezing. CV: Negative for chest pain, dyspnea GI: Negative for abdominal pain, nausea, vomiting, diarrhea, or constipation. : Negative for increased frequency, dysuria, or hematuria. Negative for pruritis or discharge MSK: Negative for myalgias or arthralgias Psych: Positive for increased stress History: History updated? Yes Past Medical History: Diagnosis Date ??? Diabetes Diagnosed at age 12 ??? DKA (diabetic ketoacidoses) ??? IUD contraception Hospitalizations: - Three hospitalizations for DKA in 2018. Reported multiple other hospitalizations for DKA since 2015. Past Surgical History: Procedure Laterality Date ??? Section ??? Tonsillectomy No family history on file. Social History Occupational History ??? [employer] Social History Main Topics ??? Smoking status: Never Smoker ??? Smokeless tobacco: Never Used ??? Alcohol use Yes Comment: occasional ??? Drug use: No ??? Sexual activity: Not on file - Lives at home with mother and 12 month old baby Allergies to Medications and Reactions No Known Allergies Current medication reconciliation: yes Home Medications: No current facility-administered medications on file prior to encounter. Current Outpatient Prescriptions on File Prior to Encounter Medication Sig Dispense Refill ??? insulin glargine (LANTUS) vial Inject 12 Units subcutaneously at bedtime 8 Each 11 ??? insulin lispro (HUMALOG) 100 UNIT/ML vial Pt specific sliding scale based off diet Physical Examination: Temp Readings from Last 3 Encounters: 12/10/17 98.1 ??F (36.7 ??C) 11/30/17 98.5 ??F (36.9 ??C) Pulse Readings from Last 3 Encounters: 12/10/17 91 11/30/17 101 BP Readings from Last 3 Encounters: 12/10/17 113/68 11/30/17 117/81 Wt Readings from Last 3 Encounters: 12/09/17 110 lb 3.7 oz 11/28/17 125 lb Body mass index is 20.83 kg/(m^2). Physical Exam General: Alert and oriented to person, place and time. In no acute distress HEENT: Head non-tramatic, normal conjunctiva, PERRLA, no trauma to ears, no otorrhea, MMM, no cervical/supraclavicular LAD Lungs: Normal effort, CTA without wheezing CV: RRR, no murmur, 2+ pedal pulses, no peripheral edema Abdomen: Bowel sounds normal, no tenderness Extremities: No peripheral edema, 5/5 strength upper and lower extremities Neuro: A&Ox3, CN II-XII intact Skin: No scars, lesions, bruising, or rash Pertinent labs and imaging results reviewed and are summarized as below: Renal function panel as of 12/10/17 at 0753 - anion gap 10 (trending down from 26 - glucose 69 - potassium 3.2 - calcium 7.5 - BUN 3 - Cr 0.31 - albumin 2.8 CBC w/ diff as of 12/10/17 at 0324 - WBC 6/3 - Hemoglobin 10.6 - Hematocrit 31.2 - Plt 256 Magnesium: 1.9 Troponin I: <0.015 Drug screen negative Updated problem list: Patient Active Problem List Diagnosis Date Noted ??? High anion gap metabolic acidosis 12/09/2017 Priority: Not Prioritized ??? Type 1 diabetes mellitus with ketoacidosis without coma 11/28/2017 Priority: Not Prioritized Assessment and Plan: 22 yo CF with PMH of Type 1 DM presenting with DKA likely due to medication non- compliance from recent home stress with symptoms now resolved since beginning IVF and insulin drip. - Will wean off of insulin and restart Lantus and Humalog sliding scale - D/C IVF - Consult Diamond Setter for education on carbohydrate counting for sliding scale insulin dosing ICD-10-CM 1. Type 1 diabetes mellitus with ketoacidosis without coma E10.10 ADMIT TO ADMIT TO Health maintenance: Health Maintenance Topic Date Due ??? HPV VACCINE (1 of 3 - Female 3 Dose Series) 2007 ??? CHLAMYDIA/GONORRHEA SCREENING 2012 ??? MENINGOCOCCAL VACCINE (1 of 1) 2012 ??? LIPID SCREENING 2013 ??? DTAP/TDAP/TD VACCINES (1 - Tdap) 2015 ??? PAP SMEAR 2017 ??? INFLUENZA VACCINE (1) 01/01/2018 Orders Placed This Encounter ??? CULTURE MRSA ??? CULTURE MRSA ??? CULTURE VRE ??? BASIC METABOLIC PANEL (CALCIUM TOTAL) ??? MAGNESIUM BLOOD ??? PHOSPHORUS BLOOD ??? LACTIC ACID BLOOD ??? DRUG SCREEN TOX URINE PANEL ??? CBC W AUTO DIFFERENTIAL ??? CBC W AUTO DIFFERENTIAL ??? MAGNESIUM BLOOD ??? BLOOD GASES JACLYN ??? PROCALCITONIN LEVEL ??? HEMOGLOBIN A1C ??? TROPONIN I ??? RENAL FUNCTION PANEL ??? RENAL FUNCTION PANEL ??? IP CONSULT TO OUTBOARD MOTORS EXPERIMENTAL MECHANIC ??? IP CONSULT TO NUTRITIONAL SERV ??? DISCONTD: potassium chloride 20 mEq in 100 mL SW bolus ??? DISCONTD: potassium chloride 40 mEq in 0.9% NaCl 270 mL bolus ??? DISCONTD: magnesium sulfate 2 g in 50 mL bolus ??? DISCONTD: sodium phosphate 45 mmol in dextrose 5 % 265 mL bolus ??? DISCONTD: dextrose 5 % and 0.45% NaCl infusion ??? heparin injection 5,000 Units ??? DISCONTD: insulin regular human (humuLIN R; novoLIN R) 100 Units in 0.9% NaCl 100 mL infusion ??? 0.9% NaCl infusion ??? DISCONTD: 0.9% NaCl IV Bolus ??? DISCONTD: lactated ringers IV bolus ??? DISCONTD: lactated ringers infusion ??? FOLLOWED BY Linked Order Group ??? potassium chloride 20 mEq in 100 mL SW bolus ??? potassium chloride 20 mEq in 100 mL SW bolus ??? DISCONTD: potassium phosphate 30 mmol in dextrose 5 % 260 mL bolus ??? insulin glargine (LANTUS) pen 12 Units ??? glucose (Diabetic Use) oral gel ??? dextrose IV 12.5-25 g ??? glucagon (GLUCAGEN) injection 1 mg ??? insulin aspart (NovoLOG) pen 0-12 Units ??? DISCONTD: sodium phosphate 40 mmol in dextrose 5 % 263.3 mL bolus ??? sodium phosphate 45 mmol in dextrose 5 % 265 mL bolus ??? dextrose 5 % and 0.45% NaCl infusion ??? insulin regular human (humuLIN R; novoLIN R) 100 Units in 0.9% NaCl 100 mL infusion ??? insulin aspart (NovoLOG) pen 5 Units ??? potassium chloride (KLOR-CON M) tablet 40 mEq Medications Discontinued During This Encounter Medication Reason ??? 0.9% NaCl IV Bolus ??? lactated ringers IV bolus ??? magnesium sulfate 2 g in 50 mL bolus ??? potassium chloride 20 mEq in 100 mL SW bolus ??? potassium chloride 40 mEq in 0.9% NaCl 270 mL bolus ??? potassium phosphate 30 mmol in dextrose 5 % 260 mL bolus ??? sodium phosphate 45 mmol in dextrose 5 % 265 mL bolus ??? sodium phosphate 40 mmol in dextrose 5 % 263.3 mL bolus ??? dextrose 5 % and 0.45% NaCl infusion ??? insulin regular human (humuLIN R; novoLIN R) 100 Units in 0.9% NaCl 100 mL infusion ??? lactated ringers infusion ??? insulin glargine (LANTUS) vial ??? insulin lispro (HUMALOG) 100 UNIT/ML vial Disposition: Discharge to home today Return to office: Follow up with PCP in one week. Keep scheduled follow up in January for hospital cleaning specialist. D/W IM Clinic Attending Kita WHEATLEY 12/10/2017 12:52 PM * Teresa Tellez MD - 12/09/2017 5:06 PM CDT ICU resident addendum to pharmacy intern 22 yo female pt with pmhx of T1DM (diagnosed 10 yr ago), multiple hospitalization due to DKA was admitted at a the another facility in [place] but but was transfer to [facility] because ofworsening DKA. Patient's initial symptoms included persistent nausea vomiting and diarrhea. Otherwise patient did not complain other symptoms. When patient was admitted initially she was in DKA with anion gap of 16 for which patient was started on aggressive volume resuscitation but somehow was notstarted on insulin drip but instead a regular SQ insulin was initiated. Patient was symptomaticallygetting better however according to CMP that was done today showed anion gap of 26 and bicarb of 10for which PICC line was placed and insulin drip was started. Right before patient was transferred to [facility] insulin drip was discontinued without evidence of resolution of anion gap or SQ insulin. Of note patient was initially on insulin pump which was discontinued during but it was never resumed. Patient was seeing an hospital cleaning specialist in [place] but could not see the endocrionologist since last August because of insurance issue and was supposed to see another hospital cleaning specialist in Jan. Patient works at [employer]. On admission, VBG showed 7.30/25/43/75, glucose of 106, BUN/Cr of4/0.50, sodium of 135, potassium 3.7, Cl of 106, bicarb of 14, anion gap of 15, phosphorus of 1.6 and unremarkable CBC and no lactic acidosis. UDS was negative. Patient was restarted on insulin alongwith D5 1/2NS. Gen: Alert, Cooperative. Appears stated age. NAD HEENT: PERRL EOMI MMM. OP clear. No LAD Lung: CTAB with good equal air entry. No wheezes, or rales heard Cardiac: RRR. Normal S1 S2. No m/r/g GI: S/NT/ND/NABS Ext: No cyanosis or edema. Neuro: AAOX4. Bedside US showed hyperdynamic LV with collapsed IVC. No B-Lines. Patient Active Problem List Diagnosis Date Noted ??? Type 1 diabetes mellitus with ketoacidosis without coma 11/28/2017 Priority: 1. ??? High anion gap metabolic acidosis 12/09/2017 Priority: 2. 22 yo female with pmhx stated as above is admitted due to DKA complicated with anion gap metabolic acidosis. DKA likely due to inadequate dosing of insulin or non-compliance with diet. Unlikely due to infection as patient does not seem to be toxic and no clear evidence of infection, normal lipase and no evidence of [place]. Will continue with insulin with D5 1/2NS until AG is closed. Will repeat potassium, MG and Phosphorus prn. Will check another electrolytes in 6 hours. Acidemia likely due to metabolic acidosis from ketonemia. Lactic acid wnl. Will start diabetic diet. Will get procalcitonin to evaluate for infection. 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 Patient will need close outpatient diabetic management. Will transfer patient to [facility] Discussed with Dr. Mccoy. Teresa Tellez, PGY3 Pager:[phone] * Abdirahman Bruce MD - 12/09/2017 3:42 PM CDT Internal Medicine Resident ICU History and Physical Admission Date: 12/09/2017 Attending: Dr. Mccoy Resident/Histological Illustrator: Drs. Tellez/ Janis Code Status: Full Code Chief complaint: DKA History of Present Illness: Ms. Menjivar is a 22 yo woman with a PMH of type 1 DM complicated by several recent admissions for DKA. She was recently discharged from the hospital on 11/30 following an episode of DKA. She had an appointment with endocrinology set up for January however she began to develop abdominal pain, nausea, vomitting, diarrhea, and polyuria on 12/06. She presented to an outside hospital on 12/06 where she was found to have an anion gap metabolic acidosis with an anion gap of 16. She was started on fluids and sub cutaneous insulin but no insulin drip. Her symptoms and anion gap improved over the next two days however today 12/09 she developed recurrent symptoms and was found to have an anion gap of 23 and beta hydroxy butyrate level of 7.4. Ms. Menjivar requested to be transferred to another hospital. Prior to transfer her insulin drip was turned off but she did not receive any subcutaneous insulin. A PICC line was placed prior to transfer and her lipase was WNL. Ms. Menjivar currently has no symptoms including polyuria, diarrhea, nausea, or abdominal pain. Her home insulin regime is 12U Lantus qHS and sliding scale insulin with meals. She was previously on an insulin pump but switched regimes while . She states that she is compliant with medications. Review of Systems Constitutional: Negative for chills and fever. Eyes: Negative for blurred vision and double vision. Cardiovascular: Negative for chest pain and palpitations. Gastrointestinal: Negative for abdominal pain and diarrhea. Genitourinary: Negative for dysuria and frequency. Skin: Negative for rash. Neurological: Negative for weakness. Endo/Heme/Allergies: Negative for polydipsia. History: Past Medical History: Diagnosis Date ??? Diabetes Diagnosed at age 12 ??? DKA (diabetic ketoacidoses) ??? IUD contraception Past Surgical History: Procedure Laterality Date ??? Section ??? Tonsillectomy No family history on file. Social History Occupational History ??? [employer] Social History Main Topics ??? Smoking status: Never Smoker ??? Smokeless tobacco: Never Used ??? Alcohol use Yes Comment: occasional ??? Drug use: No ??? Sexual activity: Not on file Allergies to Medications and Reactions No Known Allergies Home Medications: Home medications reconciled (pharmacist/resident)? yes No current facility-administered medications on file prior to encounter. Current Outpatient Prescriptions on File Prior to Encounter Medication Sig Dispense Refill ??? insulin glargine (LANTUS) vial Inject 12 Units subcutaneously at bedtime 8 Each 11 ??? insulin lispro (HUMALOG) 100 UNIT/ML vial Pt specific sliding scale based off diet EXAMINATION Vitals: 12/09/17 1545 12/09/17 1600 12/09/17 1615 12/09/17 1630 BP: 101/59 110/53 108/55 100/54 Pulse: 107 102 107 104 Resp: 17 20 19 22 Temp: SpO2: 100% 100% 100% 100% Weight: On room air Physical Exam Constitutional: She is oriented to person, place, and time. She appears well-developed. HENT: Head: Normocephalic and atraumatic. Dry mucous membranes Eyes: EOM are normal. Cardiovascular: Normal rate, regular rhythm and normal heart sounds. Pulmonary/Chest: Breath sounds normal. Abdominal: Soft. Bowel sounds are normal. Neurological: She is alert and oriented to person, place, and time. Skin: Skin is warm. LDA: PICC line POCUS: Hyperdynamic LV, collapsed IVC Labs: Labs are remarkable for the following: Anion gap 15, potassium 3.7, phosphorous 1.6. UDS negative. Micro: UA negative at OSH Procalcitonin: pending Imaging: Imaging is summarized as below: No imaging obtained Epic Active Problem List: Patient Active Problem List Diagnosis Date Noted ??? High anion gap metabolic acidosis 12/09/2017 Priority: Not Prioritized ??? Type 1 diabetes mellitus with ketoacidosis without coma 11/28/2017 Priority: Not Prioritized IMPRESSION: #DKA #Anion gap lactic acidosis- likely caused by dehydration. DISCUSSION: Ms. Menjivar is a 22 eros presenting with DKA. She has had several recent episodes of DKA on a home regime of Lantus 12 qhs and sliding scale lispro. The most likely cause is noncompliance with medications or diet. Other causes of DKA include pancreatitis however she had a normal lipase. Another cause could be infection however she is asymptomatic and has a negative UA, normal lung U/S, and normal WBC. [place] is unlikely given her young age however we will monitor her tele as well as any new symptom development. Given her multiple recent admissions sooner follow up with an hospital cleaning specialist is crucial. PLAN: NEURO: Sedation: none Analgesia: none Sleep hygiene, out of bed. PULM: Ventilation: ventilating well on room air CV: Pressors: none RENAL: Fluids: 1L NS bolus, 125ml/h LR Replete mag, phos, and potassium as needed ID: ABX: none, procal pending ENDO: Insulin: Insulin drip, once anion gap closes will administer sub q insulin prior to stopping drip. 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 HEM-ONC: DVT prophylaxis: sub cutaneous heparin GI: Diet/TF: Diabetic diet Stress ulcer prophylaxis: none PT/OT/ST/ACTIVITY: up out of bed, as tolerated by patient D/w ICU attending, Dr. Darius Bruce MD 12/09/2017 5:44 PM Due to medical issues in the assessment and plan, continued hospitalization will be required. Associated attestation - Steven Mccoy MD - 12/09/2017 6:18 PM CDT [facility] Teaching attending note Date of service: 12/09/2017 I have personally seen and evaluated the patient, reviewed the lab result and radiology imagine, please refer to resident note for details. I have discussed the case with with the Resident and I agree with his assessment, with the exception of the followin22 y/o Woman with a PMH of T1DM complicated by several recent admissions for DKA. She presented to an outside hospital on 12/06 where she was found to have an anion gap metabolic acidosis with an anion gap of 16. She was started on fluids and sub cutaneous insulin but no insulin drip. Her symptoms and anion gap improved over the next two days however on 12/09 she developed recurrent symptoms. Ms. Menjivar requested to be transferred to another hospital. A/P DKA Plan: Hydration Inulin drip Replete K,Mg and Phos DM diet OOB Pain management Prognosis: Fair Code Status: Full Code Steven Mccoy MD 12/09/2017 6:15 PM I personally spent 30 minutes providing critical care services, time was exclusive to this patient and dose not include time spent on teaching or in procedures. documented in this encounter Consult Notes * Deborah Case RD/LISA - 12/10/2017 10:58 AM CDTAssociated Order(s): IP CONSULT TO NUTRITIONAL SERV Clinical Nutrition Consult received for diabetes self management. Pt reports appetite is good, denies GI complaints. Pt states she does count CHO at home, does not have a CHO goal/meal. Adjusts insulin dose to CHO at each meal using 1:8 insulin to CHO ratio. Pt reports she eats regular meals, tends to eat the same amount at each meal and from day to day. Pt states she checks her blood sugars before meals, at HS, and if she does not feel well. Pt reports BG is usually in the 100s, occasionally low 200s. HgbA1c indicates average BG > 200 mg/dL. Pt denies need for consistent CHO education. Pt admitted with DKA, h/o DM1. Height: 5' 1 (154.9 cm) Weight: 110 lb 3.7 oz (50 kg) Body mass index is 20.83 kg/(m^2). BMI range: normal Recent Labs Component Name 12/09/17 1623 11/28/17 2229 HGBA1C 9.5* 9.7* EAG 226 232 Agree with 60 g/meal consistent CHO diet. Continue to follow per protocol. LIZETT Ruiz 12/10/2017 11:04 AM Ascom [id number] documented in this encounter Plan of Treatment Not on file documented as of this encounter Procedures Procedure Name Priority Date/Time Associated Diagnosis Comments CARDIAC EKG ORDER 12/14/2017 2:3 4 AM CDT CARDIAC RHYTHM STRIP ORDER 12/14/2017 2:32 AM CDT GLUCOSE - POINT OF CARE Routine 12/10/2017 12:03 PM CDT RENAL FUNCTION PANEL Timed 12/10/2017 7:53 AM CDT GLUCOSE - POINT OF CARE Routine 12/10/2017 7:32 AM CDT CBC W AUTO DIFFERENTIAL AM Draw 12/10/2017 3:24 AM CDT MAGNESIUM BLOOD Routine 12/10/2017 3:24 AM CDT GLUCOSE - POINT OF CARE Routine 12/10/2017 1:12 AM CDT GLUCOSE - POINT OF CARE Routine 12/10/2017 12:10 AM CDT GLUCOSE - POINT OF CARE Routine 12/09/2017 11:11 PM CDT PROCALCITONIN LEVEL Timed 12/09/2017 9 :07 PM CDT GLUCOSE - POINT OF CARE Routine 12/09/2017 9:07 PM CDT RENAL FUNCTION PANEL STAT 12/09/2017 9:07 PM CDT GLUCOSE - POINT OF CARE Routine 12/09/2017 7:52 PM CDT GLUCOSE - POINT OF CARE Routine 12/09/2017 6:57 PM CDT GLUCOSE - POINT OF CARE Routine 12/09/2017 5:55 PM CDT BLOOD GASES JACLYN Routine 12/09/2017 5:15 PM CDT GLUCOSE - POINT OF CARE Routine 12/09/2017 5:14 PM CDT URINE DRUG SCREEN IMMUNOASSAY STAT 12/09/2017 4:28 PM CDT TROPONIN I Add on 12/09/2017 4:23 PM CDT HEMOGLOBIN A1C Add on 12/09/2017 4:23 PM CDT CULTURE VRE Routine 12/09/2017 4:23 PM CDT CULTURE MRSA Routine 12/09/2017 4:23 PM CDT CULTURE MRSA Routine 12/09/2017 4:23 PM CDT CBC W AUTO DIFFERENTIAL STAT 12/09/2017 4:23 PM CDT BASIC METABOLIC PANEL (CALCIUM TOTAL) STAT 12/09/2017 4:23 PM CDT PHOSPHORUS BLOOD STAT 12/09/2017 4:23 PM CDT MAGNESIUM BLOOD STAT 12/09/2017 4:23 PM CDT LACTIC ACID BLOOD STAT 12/09/2017 4:2 3 PM CDT documented in this encounter Results * CARDIAC EKG ORDER (12/14/2017 2:34 AM CDT) Narrative 12/14/2017 2:34 AM CDT Ordered by an unspecified provider. Scanned Document CARDIAC SERVICES ORD ERABLES * CARDIAC RHYTHM STRIP ORDER (12/14/2017 2:32 AM CDT) Narrative 12/14/2017 2:32 AM CDT Ordered by an unspecified provider. Scanned Document CARDIAC SERVICES ORD ERABLES * (ABNORMAL) GLUCOSE - POINT OF CARE (12/10/2017 12:03 PM CDT) [facility] Glucose WB/POC 237(H) 70 - 106 mg/dL 12/10/2017 12:10 PM CDT [facility] Blood BLOOD SPECIMEN / Unknown 12/10/2017 12:03 PM CDT 12/10/2017 12:10 PM CDT Avni Desouza MD LAB - POINT OF CARE ORDERABLES [facility] [address] [phone] * (ABNORMAL) RENAL FUNCTION PANEL (12/10/2017 7:53 AM CDT) Glucose 69(L) 74 - 106 mg/dL 12/10/2017 8:13 AM CDT [facility] Sodium 141 136 - 145 mmol/L 12/10/2017 8:13 AM CDT [facility] Potassium 3.2(L) 3.5 - 5.1 mmol/L 12/10/2017 8:13 AM CDT [facility] Chloride 107 98 - 107 mmol/L 12/10/2017 8:13 AM CDT [facility] CO2 24 22 - 31 mmol/L 12/10/2017 8:13 AM CDT [facility] Calcium 7.5(L) 8.5 - 10.1 mg/dL 12/10/2017 8:13 AM T [facility] Anion Gap 10 8 - 16 mmol/L 12/10/2017 8:13 AM CDT [facility] BUN 3(L) 7 - 21 mg/dL 12/10/2017 8:13 AM CDT [facility] Creatinine 0.31(L) 0.50 - 1.30 mg/dL 12/10/2017 8:13 AM CDT [facility] Albumin 2.8(L) 3.4 - 5.0 gm/dL 12/10/2017 8:13 AM CDT [facility] Phosphorus 4.4 2.5 - 4.9 mg/dL 12/10/2017 8:13 AM CDT [facility] eGFR by MDRD >60 >60 mL/min/1.7 3m2 12/10/2017 8:13 AM CDT [facility] eGFR by MDRD >60 >60 mL/min/1.7 3m2 12/10/2017 8:13 AM CDT [facility] Blood BLOOD SPECIMEN / Unknown Venipuncture / Unknown 12/10/2017 7:53 AM CDT 12/10/2017 7:53 AM CDT Joelle Petty MD LAB - CHEMISTRY HANDY KONG Performing Organization Address [facility] Co de Phone Number [facility] [address] [place] [phone] * GLUCOSE - POINT OF CARE (12/10/2017 7:32 AM CDT) Pathologist [facility] Glucose WB/POC 79 70 - 106 mg/dL 12/10/2017 9:53 AM CDT [facility] Blood BLOOD SPECIMEN / Unknown 12/10/2017 7:32 AM CDT 12/10/2017 9:53 AM CDT Avni Desouza MD LAB - POINT OF CARE ORDERABLES Performing Organization Address [facility] Co de Phone Number [facility] [address] [place] [address] * MAGNESIUM BLOOD (12/10/2017 3:24 AM CDT) Pathologist [facility] Magnesium 1.9 1.6 - 2.6 mg/dL 12/10/2017 4:04 AM CDT [facility] Blood BLOOD SPECIMEN / Unknown Venipuncture / Unknown 12/10/2017 3:24 AM CDT 12/10/2017 3:35 AM CDT Abdirahman Bruce MD LAB - CHEMISTRY HANDY KONG Performing Organization Address [facility] Co de Phone Number [facility] [address] [place] [phone] * (ABNORMAL) CBC W AUTO DIFFERENTIAL (12/10/2017 3:24 AM CDT) Pathologist [facility] WBC 6.3 4.4 - 10.7 x10E9/L 12/10/2017 3:41 AM CDT [facility] WBC Corrected x10E9/L 12/10/2017 3:41 AM CDT [facility] RBC 3.76(L) 3.80 - 5.20 x10E12/L 12/10/2017 3:41 AM [facility] Hemoglobin 10.6(L) 12.0 - 15.6 gm/dL 12/10/2017 3:41 AM [facility] Hematocrit 31.2(L) 35.9 - 45.5 % 12/10/2017 3:41 AM [facility] MCV 83.0 80.7 - 98.3 fl 12/10/2017 3:41 AM CDT [facility] MCH 28.2 26.7 - 34.0 pg 12/10/2017 3:41 AM CDT [facility] MCHC 34.0 30.8 - 35.9 gm/dL 12/10/2017 3:41 AM [facility] Platelet Count 256 153 - 416 x10E9/L 12/10/2017 3:41 AM [facility] RDW-CV 13.4 12.1 - 14.9 % 12/10/2017 3:41 AM [facility] MPV 8.7(L) 9.4 - 12.9 fl 12/10/2017 3:41 AM [facility] Neutrophils % 37.1(L) 44.0 - 73.0 % 12/10/2017 3:41 AM [facility] Lymphocytes % 49.7(H) 20.0 - 43.0 % 12/10/2017 3:41 AM [facility] Monocytes % 12.3 5.0 - 13.0 % 12/10/2017 3:41 AM [facility] Eosinophils % 0.3 0.0 - 6.0 % 12/10/2017 3:41 AM [facility] Basophils % 0.3 0.0 - 2.0 % 12/10/2017 3:41 AM [facility] Immature Granulocytes 0.3 0 - 1 % 12/10/2017 3:41 AM [facility] Neutrophil Absolute 2.33 2.01 - 7.14 x10E9/L 12/10/2017 3:41 AM [facility] Lymphocytes Absolute 3.12 1.07 - 3.94 x10E9/L 12/10/2017 3:41 AM [facility] Monocytes Absolute 0.77 0.26 - 1.07 x10E9/L 12/10/2017 3:41 AM CDT [facility] Eosinophils Absolute 0.02 0 - 0.47 x10E9/L 12/10/2017 3:41 AM CDT [facility] Basophils Absolute 0.02 0 - 0.08 x10E9/L 12/10/2017 3:41 AM CDT [facility] Immature Granulocytes Absolute 0.02 0.00 - 0.06 x10E9/L 12/10/2017 3:41 AM CDT [facility] nRBC Auto 0 /100 WBC 12/10/2017 3:41 AM CDT [facility] Blood BLOOD SPECIMEN / Unknown Venipuncture / Unknown 12/10/2017 3:24 AM CDT 12/10/2017 3:35 AM CDT Abdirahman Bruce MD LAB - HEMATOLOGY ORD ERABLES Performing Organization Address [facility] Co de Phone Number [facility] [address] [place], [place] [phone] * GLUCOSE - POINT OF CARE (12/10/2017 1:12 AM CDT) Glucose WB/POC 106 70 - 106 mg/dL 12/10/2017 1:19 AM CDT [facility] Blood BLOOD SPECIMEN / Unknown 12/10/2017 1:12 AM CDT 12/10/2017 1:19 AM CDT Satinder Landry MD LAB - POINT OF CARE ORDERABLES Performing Organization Address [facility] Co de Phone Number [facility] [address] [place] [phone] * GLUCOSE - POINT OF CARE (12/10/2017 12:10 AM CDT) Glucose WB/POC 98 70 - 106 mg/dL 12/10/2017 12:12 AM CDT [facility] Blood BLOOD SPECIMEN / Unknown 12/10/2017 12:10 AM CDT 12/10/2017 12:12 AM CDT Satinder Landry MD LAB - POINT OF CARE ORDERABLES Performing Organization Address [facility]/ZIP Co de Phone Number [facility] [address] [place] [phone] * (ABNORMAL) GLUCOSE - POINT OF CARE (12/09/2017 11:11 PM CDT) Glucose WB/POC 131(H) 70 - 106 mg/dL 12/10/2017 2:58 AM CDT [facility] Blood BLOOD SPECIMEN / Unknown 12/09/2017 11:11 PM CDT 12/10/2017 2:58 AM CDT Satinder Landry MD LAB - POINT OF CARE ORDERABLES Performing Organization Address [facility] Co de Phone Number [facility] [address] [place] [phone] * (ABNORMAL) GLUCOSE - POINT OF CARE (12/09/2017 9:07 PM CDT) Glucose WB/POC 161(H) 70 - 106 mg/dL 12/10/2017 7:21 AM CDT [facility] Blood BLOOD SPECIMEN / Unknown 12/09/2017 9:07 PM CDT 12/10/2017 7:21 AM CDT Satinder Landry MD LAB - POINT OF CARE ORDERABLES Performing Organization Address [facility] Co de Phone Number [facility] [address] [place] [phone] * (ABNORMAL) RENAL FUNCTION PANEL (12/09/2017 9:07 PM CDT) Glucose 143(H) 74 - 106 mg/dL 12/09/2017 10:32 PM CDT [facility] Sodium 136 136 - 145 mmol/L 12/09/2017 10:32 PM CDT [facility] Potassium 3.6 3.5 - 5.1 mmol/L 12/09/2017 10:32 PM CDT [facility] Chloride 109(H) 98 - 107 mmol/L 12/09/2017 10:32 PM CDT [facility] CO2 19(L) 22 - 31 mmol/L 12/09/2017 10:32 PM CDT [facility] Calcium 7.2(L) 8.5 - 10.1 mg/dL 12/09/2017 10:32 PM CDT [facility] Anion Gap 8 8 - 16 mmol/L 12/09/2017 10:32 PM CDT [facility] BUN 4(L) 7 - 21 mg/dL 12/09/2017 10:32 PM CDT [facility] Creatinine 0.46(L) 0.50 - 1.30 mg/dL 12/09/2017 10:32 PM CDT [facility] Albumin 2.8(L) 3.4 - 5.0 gm/dL 12/09/2017 10:32 PM CDT [facility] Phosphorus 1.1(LL) 2.5 - 4.9 mg/dL 12/09/2017 10:32 PM CDT [facility] eGFR by MDRD >60 >60 mL/min/1.7 3m2 12/09/2017 10:32 PM CDT [facility] eGFR by MDRD >60 >60 mL/min/1.7 3m2 12/09/2017 10:32 PM CDT [facility] Blood BLOOD SPECIMEN / Unknown Venipuncture / Unknown 12/09/2017 9:07 PM CDT 12/09/2017 10:09 PM CDT Trisha Little MD LAB - CHEMISTRY ORDERABLES [facility] [address] [place] [address] * (ABNORMAL) PROCALCITONIN LEVEL (12/09/2017 9:07 PM CDT) Procalcitonin 0.26(H) <=0.10 ng/mL 12/10/2017 1:17 PM CDT [facility] Blood BLOOD SPECIMEN / Unknown Venipuncture / Unknown 12/09/2017 9:07 PM CDT 12/09/2017 10:09 PM CDT Narrative [facility] - 12/10/2017 1:17 PM CDT The [...] Change in Procalcitonin Calculator is available at [email or web address] Doctor ?? If clinical picture has not improved and PCT remains high, reevaluate and consider treatment failure or other causes. Abdirahman Bruce MD LAB - CHEMISTRY HANDY KONG Performing Organization Address [facility] de Phone Number [facility] [address] [place] [phone] * (ABNORMAL) GLUCOSE - POINT OF CARE (12/09/2017 7:52 PM CDT) [facility] Glucose WB/POC 168(H) 70 - 106 mg/dL 12/09/2017 11:41 PM CDT [facility] Blood BLOOD SPECIMEN / Unknown 12/09/2017 7:52 PM CDT 12/09/2017 11:41 PM CDT Satinder Landry MD LAB - POINT OF CARE ORDERABLES Performing Organization Address [facility] de Phone Number [facility] [address] [place] [address] * (ABNORMAL) GLUCOSE - POINT OF CARE (12/09/2017 6:57 PM CDT) Glucose WB/POC 142(H) 70 - 106 mg/dL 12/09/2017 11:41 PM CDT [facility] Specimen Type CAPILLARY BLOOD 12/09/2017 11:41 PM CDT [facility] Blood BLOOD SPECIMEN / Unknown 12/09/2017 6:57 PM CDT 12/09/2017 11:41 PM CDT Satinder Landry MD LAB - POINT OF CARE ORDERABLES [facility] [address] [place] [phone] * GLUCOSE - POINT OF CARE (12/09/2017 5:55 PM CDT) Pathologist [facility] Glucose WB/POC 101 70 - 106 mg/dL 12/09/2017 11:41 PM CDT [facility] Specimen Type CAPILLARY BLOOD 12/09/2017 11:41 PM CDT [facility] Blood BLOOD SPECIMEN / Unknown 12/09/2017 5:55 PM CDT 12/09/2017 11:41 PM CDT Satinder Landry MD LAB - POINT OF CARE ORDERABLES [facility] [address] [place] [phone] * (ABNORMAL) BLOOD GASES JACLYN (12/09/2017 5:15 PM CDT) pH Venous 7.30(L) 7.32 - 7.42 pH 12/09/2017 5:24 PM CDT [facility] pCO2 Venous 25(L) 41 - 51 mm hg 12/09/2017 5:24 PM CDT [facility] pO2 Venous 43 mm hg 12/09/2017 5:24 PM CDT [facility] HCO3 Venous 12(L) 24 - 26 mmol/L 12/09/2017 5:24 PM CDT [facility] BE Venous -13.0 mmol/L 12/09/2017 5:24 PM CDT [facility] O2 Saturation Venous 75 >70 % 01/2018 5:24 PM CDT [facility] Oxyhemoglobin Venous 77 % 01/2018 5:24 PM CDT [facility] Hemoglobin Venous 11.2 gm/dL 018 5:24 PM CDT [facility] Carboxyhemoglobin Venous 0.3 % 12/09/2017 5:24 PM CDT [facility] Methemoglobin Venous 0.9 % 01/2018 5:24 PM CDT [facility] Mode Room Air 12/09/2017 5:24 PM CDT [facility] Nigel's Test N/A 12/09/2017 5:24 PM CDT [facility] FI O2 21 % 12/09/2017 5:24 PM CDT [facility] Sample Site Venous Line 12/09/2017 5:24 PM CDT [facility] Sample Type Venous 12/09/2017 5:24 PM CDT [facility] Bleach Boiler Packer ID [id number] 12/09/2017 5:24 PM CDT [facility] Notified Who Teresa Tellez MD 12/09/2017 5:24 PM CDT [facility] Notification Time 12/09/2017 17:23 12/09/2017 5:24 PM CDT [facility] Notified By Tono Carlos RRT 12/09/2017 5:24 PM CDT [facility] Blood BLOOD SPECIMEN / Unknown 12/09/2017 5:15 PM CDT 12/09/2017 5:15 PM CDT Teresa Tellez MD LAB - BLOOD GASES OR DERABLES [facility] [address] [phone] * (ABNORMAL) GLUCOSE - POINT OF CARE (12/09/2017 5:14 PM CDT) Glucose WB/POC 110(H) 70 - 106 mg/dL 12/09/2017 11:41 PM CDT [facility] Specimen Type VENOUS BLOOD 12/09/2017 11:41 PM CDT [facility] Blood BLOOD SPECIMEN / Unknown 12/09/2017 5:14 PM CDT 12/09/2017 11:41 PM CDT Satinder Landry MD LAB - POINT OF CARE ORDERABLES [facility] [address] [place] [address] * DRUG SCREEN TOX URINE PANEL (12/09/2017 4:28 PM CDT) [facility] Amphetamines Screen Urine Not Detected Not Detected 12/09/2017 4:50 PM CDT [facility] Barbiturates Screen Urine Not Detected Not Detected 12/09/2017 4:50 PM CDT [facility] Benzodiazepines Screen Urine Not Detected Not Detected 12/09/2017 4:50 PM CDT [facility] Cannabinoids Screen Urine Not Detected Not Detected 12/09/2017 4:50 PM CDT [facility] Cocaine Screen Urine Not Detected Not Detected 12/09/2017 4:50 PM CDT [facility] Methadone Screen Urine Not Detected Not Detected 12/09/2017 4:50 PM CDT [facility] Opiate Screen Urine Not Detected Not Detected 12/09/2017 4:50 PM CDT [facility] Phencyclidine Screen Urine Not Detected Not Detected 12/09/2017 4:50 PM CDT [facility] Urine URINE / Unknown Collection / Unknown 12/09/2017 4:28 PM CDT 12/09/2017 4:37 PM CDT Narrative [facility] - 12/09/2017 4:50 PM CDT This drug screen is designed [...] ?300 ng/mL OPIATES ?300 ng/mL PHENCYCLIDINE(PCP)25 ng/mL Abdirahman Bruce MD LAB - URINE CHEMISTR Y ORDERABLES Performing Organization Address [facility] Co de Phone Number [facility] [address] [place] [phone] * TROPONIN I (12/09/2017 4:23 PM CDT) Troponin I <0.015 0.000 - 0.049 ng/mL 12/09/2017 6:47 PM CDT [facility] Blood BLOOD SPECIMEN / Unknown Venipuncture / Unknown 12/09/2017 4:23 PM CDT 12/09/2017 4:37 PM CDT Narrative [facility] - 12/09/2017 6:47 PM CDT Note: [...] - CHEMISTRY HANDY KONG Performing Organization Address [facility] de Phone Number [facility] [address] [place] [phone] * (ABNORMAL) HEMOGLOBIN A1C (12/09/2017 4:23 PM CDT) Hemoglobin A1c 9.5(H) 4.2 - 6.3 % 12/09/2017 6:12 PM CDT [facility] Estimated Average Glucose 226 mg/dL 12/09/2017 6:12 PM CDT [facility] Blood BLOOD SPECIMEN / Unknown Venipuncture / Unknown 12/09/2017 4:23 PM CDT 12/09/2017 4:37 PM CDT Teresa Tellez MD LAB - CHEMISTRY HANDY KONG [facility] Organization Address City/State/ZIP Co de Phone Number [facility] [address] [place] [address] * (ABNORMAL) CBC W AUTO DIFFERENTIAL (12/09/2017 4:23 PM CDT) WBC 5.9 4.4 - 10.7 x10E9/L 12/09/2017 4:41 PM CDT [facility] WBC Corrected x10E9/L 12/09/2017 4:41 PM CDT [facility] RBC 3.97 3.80 - 5.20 x10E12/L 12/09/2017 4:41 PM CDT [facility] Hemoglobin 11.2(L) 12.0 - 15.6 gm/dL 12/09/2017 4:41 PM CDT [facility] Hematocrit 33.6(L) 35.9 - 45.5 % 12/09/2017 4:41 PM CDT [facility] MCV 84.6 80.7 - 98.3 fl 12/09/2017 4:41 PM CDT [facility] MCH 28.2 26.7 - 34.0 pg 12/09/2017 4:41 PM CDT [facility] MCHC 33.3 30.8 - 35.9 gm/dL 12/09/2017 4:41 PM CDT [facility] Platelet Count 293 153 - 416 x10E9/L 12/09/2017 4:41 PM CDT [facility] RDW-CV 13.2 12.1 - 14.9 % 12/09/2017 4:41 PM CDT [facility] MPV 8.9(L) 9.4 - 12.9 fl 12/09/2017 4:41 PM CDT [facility] Neutrophils % 40.6(L) 44.0 - 73.0 % 12/09/2017 4:41 PM CDT [facility] Lymphocytes % 45.0(H) 20.0 - 43.0 % 12/09/2017 4:41 PM CDT [facility] Monocytes % 12.9 5.0 - 13.0 % 12/09/2017 4:41 PM CDT [facility] Eosinophils % 0.0 0.0 - 6.0 % 12/09/2017 4:41 PM CDT [facility] Basophils % 0.3 0.0 - 2.0 % 12/09/2017 4:41 PM CDT [facility] Immature Granulocytes 1.2(H) 0 - 1 % 12/09/2017 4:41 PM CDT [facility] Neutrophil Absolute 2.40 2.01 - 7.14 x10E9/L 12/09/2017 4:41 PM CDT [facility] Lymphocytes Absolute 2.66 1.07 - 3.94 x10E9/L 12/09/2017 4:41 PM CDT [facility] Monocytes Absolute 0.76 0.26 - 1.07 x10E9/L 12/09/2017 4:41 PM CDT [facility] Eosinophils Absolute 0.00 0 - 0.47 x10E9/L 12/09/2017 4:41 PM CDT [facility] Basophils Absolute 0.02 0 - 0.08 x10E9/L 12/09/2017 4:41 PM CDT [facility] Immature Granulocytes Absolute 0.07(H) 0.00 - 0.06 x10E9/L 12/09/2017 4:41 PM CDT [facility] nRBC Auto 0 /100 WBC 12/09/2017 4:41 PM CDT [facility] Blood BLOOD SPECIMEN / Unknown Venipuncture / Unknown 12/09/2017 4:23 PM CDT 12/09/2017 4:37 PM CDT Abdirahman Bruce MD LAB - HEMATOLOGY ORD ERABLES Performing Organization Address City/[facility]/ZIP Co de Phone Number [facility] [address] [place] [phone] * LACTIC ACID BLOOD (12/09/2017 4:23 PM CDT) Lactic Acid 0.7 0.7 - 2.1 mmol/L 12/09/2017 5:00 PM CDT [facility] Blood BLOOD SPECIMEN / Unknown Venipuncture / Unknown 12/09/2017 4:23 PM CDT 12/09/2017 4:36 PM CDT Abdirahman Bruce MD LAB - CHEMISTRY ORDE RABKEVIN [facility] [address] [place] [address] * (ABNORMAL) PHOSPHORUS BLOOD (12/09/2017 4:23 PM CDT) Phosphorus 1.6(L) 2.5 - 4.9 mg/dL 12/09/2017 4:57 PM CDT [facility] Blood BLOOD SPECIMEN / Unknown Venipuncture / Unknown 12/09/2017 4:23 PM CDT 12/09/2017 4:37 PM CDT Abdirahman Bruce MD LAB - CHEMISTRY HANDY KONG Performing Organization Address [facility] Co de Phone Number [facility] [address] [place] [address] * MAGNESIUM BLOOD (12/09/2017 4:23 PM CDT) Pathologist [facility] Magnesium 1.6 1.6 - 2.6 mg/dL 12/09/2017 4:56 PM CDT [facility] Blood BLOOD SPECIMEN / Unknown Venipuncture / Unknown 12/09/2017 4:23 PM CDT 12/09/2017 4:37 PM CDT Abdirahman Bruce MD LAB - CHEMISTRY HANDY KONG Performing Organization Address [facility] Co de Phone Number [facility] [address] [place] [address] * (ABNORMAL) BASIC METABOLIC PANEL (CALCIUM TOTAL) (12/09/2017 4:23 PM CDT) Pathologist [facility] Glucose 106 74 - 106 mg/dL 12/09/2017 4:56 PM CDT [facility] Sodium 135(L) 136 - 145 mmol/L 12/09/2017 4:56 PM CDT [facility] Potassium 3.7 3.5 - 5.1 mmol/L 12/09/2017 4:56 PM CDT [facility] Chloride 106 98 - 107 mmol/L 12/09/2017 4:56 PM CDT [facility] CO2 14(L) 22 - 31 mmol/L 12/09/2017 4:56 PM CDT [facility] Calcium 8.1(L) 8.5 - 10.1 mg/dL 12/09/2017 4:56 PM CDT [facility] Anion Gap 15 8 - 16 mmol/L 12/09/2017 4:56 PM CDT [facility] BUN 4(L) 7 - 21 mg/dL 12/09/2017 4:56 PM CDT [facility] Creatinine 0.50 0.50 - 1.30 mg/dL 12/09/2017 4:56 PM CDT [facility] eGFR by MDRD >60 >60 mL/min/1.7 3m2 12/09/2017 4:56 PM CDT [facility] eGFR by MDRD >60 >60 mL/min/1.7 3m2 12/09/2017 4:56 PM CDT [facility] Blood BLOOD SPECIMEN / Unknown Venipuncture / Unknown 12/09/2017 4:23 PM CDT 12/09/2017 4:37 PM CDT Abdirahman Bruce MD LAB - CHEMISTRY HANDY KONG [facility] [address] [place] [address] * CULTURE VRE (12/09/2017 4:23 PM CDT) Culture Negative for vancomycin-resi stant Enterococci (VRE) [place]QU[place]A 12/11/2017 6:12 AM CDT [facility] Microbiology ENTIRE RECTUM / Unknown Collection / Unknown 12/09/2017 4:23 PM CDT 12/09/2017 4:36 PM CDT Satinder Landry MD LAB - MICROBIOLOGY O RDERABLES [facility] [address] [phone] * CULTURE MRSA (12/09/2017 4:23 PM CDT) Culture Negative for methicillin-resist ant Staphylococcus aureus (MRSA) [place] 12/11/2017 6:04 AM CDT [facility] MICROBIOLOGY Microbiology ENTIRE RECTUM / Unknown Collection / Unknown 12/09/2017 4:23 PM CDT 12/09/2017 4:36 PM CDT Satinder Landry MD LAB - MICROBIOLOGY O RDLEIDY [facility] [address] [place] [address], [place] [phone] * CULTURE MRSA (12/09/2017 4:23 PM CDT) Culture Negative for methicillin-resist ant Staphylococcus aureus (MRSA) [place] 12/11/2017 6:04 AM CDT [facility]CRO[facility] Microbiology SPECIMEN FROM NASAL FOSSAE / Unknown Collection / Unknown 12/09/2017 4:23 PM CDT 12/09/2017 4:36 PM CDT Satinder Landry MD LAB - MICROBIOLOGY O EVELIA Performing Organization Address [place]/[facility] Co de Phone Number [facility] [address] [place] [address], [place] [phone] documented in this encounter Visit Diagnoses Diagnosis Type 1 diabetes mellitus with ketoacidosis without coma (HCC)- Primary Type 1 diabetes mellitus with ketoacidosis without coma (HCC) High anion gap metabolic acidosis Acidosis documented in this encounter Administered Medications Inactive Administered Medications - up to 3 most recent administrations Medication Order MAR Action Action Date Dose Rate Site 0.9% NaCl infusion at 999 mL/hr, Intravenous, BOLUS IV, 1 dose, On Wed12/09/17 at 1615 $ New Bag/Syringe 12/09/2017 4:37 PM CDT 999 mL/hr dextrose 5 % and 0.45% NaCl infusion at 100 mL/hr, Intravenous, CONTINUOUS, Starting on Wed12/09/17 at 1630, Until Wed12/10/17 at 0109, DKA IV FLUID #3: Do not start until Blood Glucose is less than 250 mg/dL. Call physician with BMP, Phosphorous, and Serum Creatinine to get maintenance IV fluid and potassium orders. Restarted 12/09/2017 9:04 PM CDT 100 mL/hr Restarted 12/09/2017 5:24 PM CDT 100 mL/hr $ New Bag/Syringe 12/09/2017 5:22 PM CDT 10 mL/ hr dextrose IV 12.5-25 g 12.5-25 g (25-50 mL), Intravenous, PRN, Bedside Glucose less than 70 mg/dL -If NOT able to eat and/or NPO and with IV Access, Starting on Nurys 12/09/17 at 2244, Until Wed12/10/17 at 1904, If NOT able to eat and/or NPO [...] NPO and withOUT IV Access, Starting on Nurys 12/09/17 at 2244, Until Wed12/10/17 at 1904, If NOT able to eat and/or NPO [...] does not have swallowing difficulties, Starting on Nurys 12/09/17 at 2244, Until Wed12/10/17 at 1904, If able to eat and does not [...] WITH MEALS, 1095 doses, First dose on Wed12/10/17 at 0800, Last dose on Wed12/09/18 at 1800, Medium Dose : Correction Insulin. BG (mg/dL) Corrective Action LESS than 70: follow Hypoglycemic guidelines, 70-140: NO Correction insulin, 141-180: GIVE 2 units of insulin, 181-220: GIVE 4 units of insulin, 221-260: GIVE 6 units of insulin, 261-300: GIVE 8 units of insulin, 301-350: GIVE 10 units of insulin and notify physician, Greater than 350: GIVE 12 units of insulin and notify physician. If the patient is NPO: DO NOT HOLD correction insulin If patient is eating meals and has orders for Mealtime insulin, combine and give at the same time. $ Given 12/10/2017 12:03 PM CDT 6 Units Left Arm insulin aspart (NovoLOG) pen 5 Units 5 Units, Subcutaneous, 3 TIMES DAILY WITH MEALS, 1095 doses, First dose on Wed12/10/17 at 0945, Last dose on Wed12/09/18 at 1800, MEALTIME INSULIN Hold MEALTIME insulin if patient is NPO or eating less than 50% of meals. -OR- if carb intake for the meal is less than 30 grams. May be given immediately before meal, during meal, or immediately after meal is eaten. Meal must be present before administration. Combine mealtime dose and correction insulin dose if needed into one injection. $ Given 12/10/2017 12:04 PM CDT 5 Units Left Arm insulin glargine (LANTUS) pen 12 Units 12 Units, Subcutaneous, AT BEDTIME, 365 doses, First dose on Wed12/09/17 at 2330, Last dose on Wed12/08/18 at 2100, ............. DO NOT HOLD even if patient is NPO Consider calling physician for dose reduction if patient is made NPO. Body mass index is 20.83 kg/(m^2). . WASTE DISPOSAL INSTRUCTIONS: Black Bin Disposal required. $ Given 12/10/2017 12:26 AM CDT 12 Units Left Arm insulin regular human (humuLIN R; novoLIN R) 100 Units in 0.9% NaCl 100 mL infusion 0.5-30 Units/hr (0.5-30 mL/hr), Intravenous, CONTINUOUS, Starting on Wed12/09/17 at 1645, Until Wed12/10/17 at 0109, CONTINUOUS I.V. INSULIN PROTOCOL Administer in tenths of units/hr (i.e. 2.3 units/hr) Flush 20 ml of infusion through IV tubing before infusing. INITIAL RATE = (Blood Glucose - 60) x 0.03 (multiplier)=units/hr SUBSEQUENT RATE CHANGES Calculate new rate with every blood glucose result. (Blood Glucose - 60) X new multiplier = units/hour. BLOOD GLUCOSE GREATER THAN 150 mg/dL Increase multiplier by 0.01, unless blood glucose has fallen more than 50 mg/dL in 1 hour, then do not change multiplier. BLOOD GLUCOSE 100-150 mg/dL Keep multiplier the same BLOOD GLUCOSE 70 - 99 mg/dl Decrease multiplier by 0.01 BLOOD GLUCOSE LESS THAN 70 mg/dl Stop insulin drip for 30 minutes. Give D50 IVP Recheck blood glucose every 10-25 minutes: -When greater than 80, resume hourly blood glucose checks and decrease previous multiplier by 50% and resume drips -If less than 70 give additional D50. . WASTE DISPOSAL INSTRUCTIONS: Black Bin Disposal required. Current Rate 12/10/2017 12:12 AM CDT 1.5 Units/hr 1.5 mL/hr Rate Change 12/10/2017 12:11 AM CDT 1.5 Units/hr 1.5 mL/hr Current Rate 12/09/2017 11:12 PM CDT 3.6 Units/hr 3.6 mL/h r lactated ringers infusion at 125 mL/hr, Intravenous, CONTINUOUS, Starting on Wed12/09/17 at 1800, Until Wed12/10/17 at 1136 $ New Bag/Syringe 12/10/2017 9:59 AM CDT 125 mL/hr Current Rate 12/10/2017 5:00 AM CDT 125 mL/hr Restarted 12/10/2017 3:23 AM CDT 125 mL/hr magnesium sulfate 2 g in 50 mL bolus 2 g, at 25 mL/hr, Administer over 120 Minutes, Intravenous, PRN, magnesium less than 2, Starting on Nurys 12/09/17 at 1550, Until Wed12/09/17 at 2245, infuse at 50 mL/hr. DKA--Magnesium Replacement If Magnesium less than 1.8 mg/dL give 16 mEq (2 g) of Magnesium Sulfate IVPB $ New Bag/Syringe 12/09/2017 5:34 PM CDT 2 g 25 mL/hr potassium chloride (KLOR-CON M) tablet 40 mEq 40 mEq, Oral, ONCE, 1 dose, On Wed12/10/17 at 1200, Do not crush or chew. $ Given 12/10/2017 11:57 AM CDT 40 mEq potassium chloride 20 mEq in 100 mL SW bolus 20 mEq, at 50 mL/hr, Administer over 2 Hours, Intravenous, ONCE, 1 dose, On Nurys 12/09/17 at 1800 $ New Bag/Syringe 12/09/2017 7:40 PM CDT 20 mEq 50 mL/hr potassium chloride 20 mEq in 100 mL SW bolus 20 mEq, at 50 mL/hr, Administer over 2 Hours, Intravenous, ONCE, 1 dose, On Nurys 12/09/17 at 2000 $ New Bag/Syringe 12/09/2017 9:33 PM CDT 20 mEq 50 mL/hr sodium phosphate 45 mmol in dextrose 5 % 265 mL bolus 45 mmol, at 44.17 mL/hr, Administer over 6 Hours, Intravenous, ONCE, 1 dose, On Wed12/09/17 at 2315, DKA--Phosphorus Replacement.... If PO4 less than 1 mg/dL give 45 mmol NaHPO4 (as PO4) Current Rate 12/10/2017 5:00 AM CDT 44.17 mL/hr Restarted 12/10/2017 3:23 AM CDT 44.17 mL/hr Current Rate 12/10/2017 1:50 AM CDT 44.17 mL/hr documented in this encounter Active and Recently Administered Medications Times are shown in CDT. Scheduled Medication Order 12/08/2017 12/09/2017 12/10/2017 0.9% NaCl infusion (COMPLETED) at 999 mL/hr, Intravenous, BOLUS IV, 1 dose, On Nurys 12/09/17 at 1615 1637 ($ New Bag/Syringe - Provider: Evelina Avila RN) heparin injection 5,000 Units 5,000 Units, Subcutaneous, 2 TIMES DAILY, 730 doses, First dose on Nurys 12/09/17 at 2100, Last dose on Wed12/09/18 at 0900 1959 (Not Administered - Provider: Soraya Segal RN - Reason: Refused-Patient) 0845 (Not Administered - Provider: Bobbi Kaba RN - Reason: Refused-Patient - Comment: pt advised on DVt prophylaxis but still refusing meds) insulin aspart (NovoLOG) pen 0-12 Units 0-12 Units, Subcutaneous, 3 TIMES DAILY WITH MEALS, 1095 doses, First dose on Wed12/10/17 at 0800, Last dose on Wed12/09/18 at 1800, Medium Dose : Correction Insulin. BG (mg/dL) Corrective Action LESS than 70: follow Hypoglycemic guidelines, 70-140: NO Correction insulin, 141-180: GIVE 2 units of insulin, 181-220: GIVE 4 units of insulin, 221-260: GIVE 6 units of insulin, 261-300: GIVE 8 units of insulin, 301-350: GIVE 10 units of insulin and notify physician, Greater than 350: GIVE 12 units of insulin and notify physician. If the patient is NPO: DO NOT HOLD correction insulin If patient is eating meals and has orders for Mealtime insulin, combine and give at the same time. 0732 (Not Administer ed - Provider: Bobbi Kaba RN - Reason: Per Administration Instructions)1203 ($ Given - Provider: Bobbi Kaba RN)1800 (Due) insulin aspart (NovoLOG) pen 5 Units 5 Units, Subcutaneous, 3 TIMES DAILY WITH MEALS, 1095 doses, First dose on Wed12/10/17 at 0945, Last dose on Wed12/09/18 at 1800, MEALTIME INSULIN Hold MEALTIME insulin if patient is NPO or eating less than 50% of meals. -OR- if carb intake for the meal is less than 30 grams. May be given immediately before meal, during meal, or immediately after meal is eaten. Meal must be present before administration. Combine mealtime dose and correction insulin dose if needed into one injection. 1117 (Not Administer ed - Provider: Bobbi Kaba RN - Reason: See Comments - Comment: will start meds with lunch meal, pt already ate breakfast)1204 ($ Given - Provider: Bobbi Kaba RN)1800 (Due) insulin glargine (LANTUS) pen 12 Units 12 Units, Subcutaneous, AT BEDTIME, 365 doses, First dose on Wed12/09/17 at 2330, Last dose on Wed12/08/18 at 2100, ............. DO NOT HOLD even if patient is NPO Consider calling physician for dose reduction if patient is made NPO. Body mass index is 20.83 kg/(m^2). . WASTE DISPOSAL INSTRUCTIONS: Black Bin Disposal required. 0026 ($ Given - Prov ider: Soraya Segal RN) potassium chloride (KLOR-CON M) tablet 40 mEq (COMPLETED) 40 mEq, Oral, ONCE, 1 dose, On Wed12/10/17 at 1200, Do not crush or chew. 1157 ($ Given - Prov ider: Bobbi Kaba RN) potassium chloride 20 mEq in 100 mL SW bolus (COMPLETED)(Linked Group 1) 20 mEq, at 50 mL/hr, Administer over 2 Hours, Intravenous, ONCE, 1 dose, On Wed12/09/17 at 1800 1940 ($ New Bag/Syringe - Provider: Soraya Segal RN)2132 (Stopped - Provider: Soraya Segal, MARY) potassium chloride 20 mEq in 100 mL SW bolus (COMPLETED)(Linked Group 1) 20 mEq, at 50 mL/hr, Administer over 2 Hours, Intravenous, ONCE, 1 dose, On Wed12/09/17 at 2000 2133 ($ New Bag/Syringe - Provider: Soraya Segal, MARY)2330 (Stopped - Provider: Soraya Segal, MARY) sodium phosphate 45 mmol in dextrose 5 % 265 mL bolus (COMPLETED) 45 mmol, at 44.17 mL/hr, Administer over 6 Hours, Intravenous, ONCE, 1 dose, On Nurys 12/09/17 at 2315, DKA--Phosphorus Replacement.... If PO4 less than 1 mg/dL give 45 mmol NaHPO4 (as PO4) 0012 ($ New Bag/Syri nge - Provider: Soraya Segal, RN)0013 (Current Rate - Provider: Soraya Segal, RN)0140 (Current Rate - Provider: Soraya Segal, RN)0150 (Current Rate - Provider: Soraya Segal, MARY)0320 (Paused - Provider: Soraya Segal, RN)0323 (Restarted - Provider: Soraya Segal, RN)0500 (Current Rate - Provider: Soraya Segal, MARY)0733 (Stopped - Provider: Bobbi Kaba RN) Continuous Medication Order 12/08/2017 12/09/2017 12/10/2017 dextrose 5 % and 0.45% NaCl infusion (CANCELED) at 100 mL/hr, Intravenous, CONTINUOUS, Starting on Wed12/09/17 at 1630, Until Wed12/10/17 at 0109, DKA IV FLUID #3: Do not start until Blood Glucose is less than 250 mg/dL. Call physician with BMP, Phosphorous, and Serum Creatinine to get maintenance IV fluid and potassium orders. 1722 ($ New Bag/Syringe - Provider: Evelina Avila RN)1724 (Paused - Provider: Soraya Segal, MARY)1724 (Restarted - Provider: Soraya Segal, MARY)2100 (Paused - Provider: Soraya Segal, MARY)2104 (Restarted - Provider: Soraya Segal, MARY) 0137 (Stopped - Provider: Soraya Segal, RN) insulin regular human (humuLIN R; novoLIN R) 100 Units in 0.9% NaCl 100 mL infusion (CANCELED) 0.5-30 Units/hr (0.5-30 mL/hr), Intravenous, CONTINUOUS, Starting on Nurys 12/09/17 at 1645, Until Wed12/10/17 at 0109, CONTINUOUS I.V. INSULIN PROTOCOL Administer in tenths of units/hr (i.e. 2.3 units/hr) Flush 20 ml of infusion through IV tubing before infusing. INITIAL RATE = (Blood Glucose - 60) x 0.03 (multiplier)=units/hr SUBSEQUENT RATE CHANGES Calculate new rate with every blood glucose result. (Blood Glucose - 60) X new multiplier = units/hour. BLOOD GLUCOSE GREATER THAN 150 mg/dL Increase multiplier by 0.01, unless blood glucose has fallen more than 50 mg/dL in 1 hour, then do not change multiplier. BLOOD GLUCOSE 100-150 mg/dL Keep multiplier the same BLOOD GLUCOSE 70 - 99 mg/dl Decrease multiplier by 0.01 BLOOD GLUCOSE LESS THAN 70 mg/dl Stop insulin drip for 30 minutes. Give D50 IVP Recheck blood glucose every 10-25 minutes: -When greater than 80, resume hourly blood glucose checks and decrease previous multiplier by 50% and resume drips -If less than 70 give additional D50. . WASTE DISPOSAL INSTRUCTIONS: Black Bin Disposal required. 1637 ($ New Bag/Syringe - Provider: Evelina Avila RN)1638 (Current Rate - Provider: Soraya Segal RN)1639 (Paused - Provider: Soraya Segal RN)1639 (Restarted - Provider: Soraya Segal RN)1715 (Rate Change - Provider: Evelina Avila RN)1717 (Current Rate - Provider: Soraya Segal RN)1755 (Rate Change - Provider: Evelina Avila, RN)1756 (Current Rate - Provider: Soraya Segal, RN)1857 (Rate Change - Provider: Evelina Avila RN)185 (Current Rate - Provider: Soraya Segal RN)195 (Rate Change - Provider: Soraya Segal, RN)195 (Current Rate - Provider: Soraya Segal, RN)2100 (Paused - Provider: Soraya Segal, RN)210 (Restarted - Provider: Soraya Segal, MARY)210 (Rate Change - Provider: Soraya Segal, RN)210 (Current Rate - Provider: Soraya Segal, RN)231 (Rate Change - Provider: Soraya Segal, RN)2312 (Current Rate - Provider: Soraya Segal RN) 0011 (Rate Change - Provider: Soraya Segal, RN)0012 (Current Rate - Provider: Soraya Segal RN)0138 (Stopped - Provider: Soraya Segal RN) lactated ringers infusion (CANCELED) at 125 mL/hr, Intravenous, CONTINUOUS, Starting on Nurys 12/09/17 at 1800, Until Wed12/10/17 at 1136 1742 ($ New Bag/Syringe - Provider: Evelina Avila RN)1743 (Current Rate - Provider: Soraya Segal RN)2100 (Paused - Provider: Soraya Segal RN)2104 (Restarted - Provider: Soraya Segal, MARY) 0135 (Paused - Provider: Soraya Segal, RN)0136 (Restarted - Provider: Soraya Segal RN)0140 (Current Rate - Provider: Soraya Segal, MARY)0144 ($ New Bag/Syringe - Provider: Soraya Segal RN)0150 (Current Rate - Provider: Soraya Segal RN)0320 (Paused - Provider: Soraya Segal RN)0323 (Restarted - Provider: Soraya Segal, MARY)0500 (Current Rate - Provider: Soraya Segal RN)0959 ($ New Bag/Syringe - Provider: Juana Alex RN) PRN Medication Order 12/08/2017 12/09/2017 12/10/2017 dextrose IV 12.5-25 g 12.5-25 g (25-50 mL), Intravenous, PRN, Bedside Glucose less than 70 mg/dL -If NOT able to eat and/or NPO and with IV Access, Starting on Nurys 12/09/17 at 2244, Until Wed12/10/17 at 1904, If NOT able to eat and/or NPO [...] NPO and withOUT IV Access, Starting on Wed12/09/17 at 2244, Until Wed12/10/17 at 1904, If NOT able to eat and/or NPO [...] does not have swallowing difficulties, Starting on Wed12/09/17 at 2244, Until Wed12/10/17 at 1904, If able to eat and does not [...] 80 mg/dl. NOTIFY PROVIDER OF HYPOGLYCEMIC EVENT. magnesium sulfate 2 g in 50 mL bolus (CANCELED) 2 g, at 25 mL/hr, Administer over 120 Minutes, Intravenous, PRN, magnesium less than 2, Starting on Wed12/09/17 at 1550, Until Nurys 12/09/17 at 2245, infuse at 50 mL/hr. DKA--Magnesium Replacement If Magnesium less than 1.8 mg/dL give 16 mEq (2 g) of Magnesium Sulfate IVPB 1734 ($ New Bag/Syringe - Provider: Evelina Avila, RN)1944 (Stopped - Provider: Soraya Segal RN) Linked Groups Order Group 1: potassium chloride 20 mEq in 100 mL SW bolus (COMPLETED)Jump to med 20 mEq, at 50 mL/hr, Administer over 2 Hours, Intravenous, ONCE, 1 dose, On Nurys 12/09/17 at 1800 Followed by potassium chloride 20 mEq in 100 mL SW bolus (COMPLETED)Jump to med 20 mEq, at 50 mL/hr, Administer over 2 Hours, Intravenous, ONCE, 1 dose, On Nurys 12/09/17 at 2000 documented in this encounter Care Teams Student Loan Counselor Relationship Specialty Start Date End Date Jolanta Freeman MD PCP - General Pediatrics 05/24/13 documented as of this encounter
--- OUTSIDE RECORDS SUMMARY | 2024-05-10 18:53 | XMS_ITS | Encounter Summary ---
Author Organization [facility] Address [address] [place] [address] Care Team Providers Care Building Construction Ironworker Name Role Phone Jolanta Freeman MD Primary Care Provider + [phone] Reason for Visit * (Routine) - Closed Specialty Diagnoses / Procedures Referred By Rachael frey Referred To Contact Cardiology [facility]IN [facility] [address] [place] [id number] Referral ID Status Reason Start Date Expiration Date Visits Re quested Visits Authorized [id number] Closed 05/29/2013 11/25/2013 1 1 Encounter Details Date Type Department Care Team (Latest Contact Info) Description 05/29/2013 9:05 AM PITTING MACHINE OPERATOR - 05/29/2013 11:59 PM [facility] Hospital Encounter [facility] at [address] [address] Theodore Gibson MD Discharge Disposition: Home or Self Care Social History Tobacco Use Types Packs/Day Years Used Date Smoking Tobacco: Never Assessed Sex and Gender Information Value Date Recorded Sex Assigned at Not on file Gender Identity Not on file Sexual Orientation Not on file documented as of this encounter Procedure Notes * Document, Scanned - 05/29/2013 10:56 AM CSTAssociated Order(s): EKG 15-LEAD ING MACHINE OPERATOR * Document, Scanned - 05/29/2013 9:34 AM CSTAssociated Order(s): EKG 15-LEAD ING MACHINE OPERATOR * Document, Scanned - 05/29/2013 9:34 AM CSTAssociated Order(s): EKG 15-LEAD ING MACHINE OPERATOR documented in this encounter Miscellaneous Notes * Miscellaneous Scans - Document, Scanned - 05/30/2013 5:44 PM CST ING MACHINE OPERATOR documented in this encounter Plan of Treatment Not on file documented as of this encounter Procedures Procedure Name Priority Date/Time Associated Diagnosis Comments EKG 15-LEAD Routine 05/29/2013 10:20 AM PITTING MACHINE OPERATOR Chest pain documented in this encounter Results * EKG 15-LEAD (05/29/2013 10:20 AM PITTING MACHINE OPERATOR) Ventricular Rate 77 BPM CG MUSE Atrial Rate 77 BPM CG MUSE P-R Interval 130 ms CG MUSE QRS Duration ms 78 ms CG MUSE Q-T Interval ms 346 ms CG MUSE QTC Calculation (Bezet) 391 ms CG MUSE Calculated P Story 30 degrees CG MUSE Calculated R Story 87 degrees CG MUSE Calculated T Story 48 degrees CG MUSE Interpretation EKG Sinus rhythm with marked sinus arrhythmia Normal ECG No previous ECGs available Confirmed by MD Paige, Theodore ([id number]) on 05/29/2013 10:55:20 AM CG MUSE 05/29/2013 10:2 0 AM PITTING MACHINE OPERATOR 05/29/2013 10:55 AM PITTING MACHINE OPERATOR Narrative CG MUSE - 05/29/2013 10:55 AM PITTING MACHINE OPERATOR Procedure Note Document, Scanned - 05/29/2013 9:34 AM CST Transcriptions Document, Scanned - 05/29/2013 9:34 AM CST Document, Scanned - 05/29/2013 10:56 AM CST Ordering Provider Unlisted ECG ORDERA ETTA CG MUSE documented in this encounter Visit Diagnoses Diagnosis Chest pain- Primary documented in this encounter Care Teams Building Construction Ironworker Relationship Specialty Start Date End Date Jolanta Freeman MD PCP - General Pediatrics 05/24/13 documented as of this encounter
--- OUTSIDE RECORDS SUMMARY | 2024-05-10 18:53 | XMS_ITS | Encounter Summary ---
Author Organization [facility] Address [address] [place] [address] Care Team Providers Care Alignment Specialist Name Role Phone Jolanta Johnson MD Primary Care Provider + [phone] Reason for Visit * (Routine) - Closed Specialty Diagnoses / Procedures Referred By Rachael frey Referred To Contact Cardiology Procedures echo CG MAIN Card Serv [address] [place] [address] Referral ID Status Reason Start Date Expiration Date Visits Re quested Visits Authorized [id number] Closed 05/29/2013 11/25/2013 1 1 Encounter Details Date Type Department Care Team (Latest Contact Info) Description 05/29/2013 9:05 AM PROJECT LEADER - 05/29/2013 11:59 PM PROJECT LEADER Hospital Encounter [facility] at [address] [address] Theodore Gibson MD Discharge Disposition: Home or Self Care Social History Tobacco Use Types Packs/Day Years Used Date Smoking Tobacco: Never Assessed Sex and Gender Information Value Date Recorded Sex Assigned at Not on file Gender Identity Not on file Sexual Orientation Not on file documented as of this encounter Miscellaneous Notes * Miscellaneous Scans - Document, Scanned - 05/31/2013 5:51 AM CST ECT LEADER * Miscellaneous Scans - Document, Scanned - 05/30/2013 5:44 PM CST ECT LEADER documented in this encounter Plan of Treatment Not on file documented as of this encounter Procedures Procedure Name Priority Date/Time Associated Diagnosis Comments ECHO CONSULT - PEDIATRIC Routine 05/29/2013 9:15 AM PROJECT LEADER Other Chest Pain documented in this encounter Results * ECHO CONSULT - PEDIATRIC (05/29/2013 9:15 AM PROJECT LEADER) 05/29/2013 9:15 AM PROJECT LEADER Narrative [facility] - 05/29/2013 11:29 AM PROJECT LEADER [facility] , Transthoracic Echocardiogram 2D, M-mode, Doppler, and Color Doppler Name: KARINA FUCHS MR #: [id number] Study date: 05/29/2013 Age: 17 years : 1995 Gender: Female Ht: 61.9 in / 157.2 cm Wt: 124.1 lb / 56.4 kg BSA: 1.56 m?? HR: BP: / age: AARTI: Maternal age: PULPER TENDER: ??Theodore Gibson MD PEDIATRIC ECHO POSTBED STITCHER: ??STERLING Cramer REFERRING PHYSICIAN: ??JOLANTA JOHNSON MD History/ Indications: family history DORV. Chest [...] g/m2 SV(Teich): 69.3 ml Procedure Note 05/29/2013 [facility] , Transthoracic Echocardiogram 2D, M-mode, Doppler, and Color Doppler Name: KARINA FUCHS MR #: [id number] Study date: 05/29/2013 Age: 17 years : 1995 Gender: Female Ht: 61.9 in / 157.2 cm Wt: 124.1 lb / 56.4 kg BSA: 1.56 m?? HR: BP: / age: AARTI: Maternal age: PULPER TENDER: Theodore Gibson MD PEDIATRIC ECHO POSTBED STITCHER: STERLING Cramer REFERRING PHYSICIAN: JOLANTA JOHNSON MD History/ Indications: family history DORV. Chest [...] Index: 77.8 g/m2 SV(Teich): 69.3 ml Tammy Johnson MD ECHO ORDERABLES [facility] [address] [place] [address] documented in this encounter Visit Diagnoses Diagnosis Other chest pain- Primary documented in this encounter Care Teams Alignment Specialist Relationship Specialty Start Date End Date Jolanta Johnson MD PCP - General Pediatrics 05/24/13 documented as of this encounter
--- OUTSIDE RECORDS SUMMARY | 2024-05-10 18:53 | XMS_ITS | Encounter Summary ---
Author Organization [facility] Address [address] [facility] [place] [address] Phone Care Team Providers Care Devops Solutions Architect Name Role Phone Carrie Joseph Primary Care Provider [phone] Naomi Sacnhes MD Unavailable Reason for Visit * Reason Comments Follow-up Encounter Details Date Type Department Care Team (Late st Contact Info) Description 07/02/2023 3:00 PM RESOURCE SPECIALIST Office Visit [facility] - Endocrinology - [place] [address] [place] [address] Naomi Sanches MD [address] [address] Type 1 diabetes mellitus without complication (HCC) (Primary Dx); Hypoglycemia; Nausea Discharge Disposition: Discharged to home or Selfcare [...] Sign Reading Time Taken Comments Blood Pressure 110/68 07/02/2023 2:59 PM RESOURCE SPECIALIST Pulse 111 07/02/2023 2:59 PM RESOURCE SPECIALIST Temperature 36.3 ??C (97.4 ??F) 07/02/2023 2:59 PM CS T Respiratory Rate 18 07/02/2023 2:59 PM RESOURCE SPECIALIST Oxygen Saturation 99% 07/02/2023 2:59 PM RESOURCE SPECIALIST Inhaled Oxygen Concentration - - Weight 75.3 kg (166 lb) 07/02/2023 2:59 PM RESOURCE SPECIALIST Height - - Body Mass Index 30.36 05/22/2022 2:16 PM RESOURCE SPECIALIST documented in this encounter Patient Instructions * Patient Instructions* Naomi Sanches MD - 07/02/2023 3:00 PM RESOURCE SPECIALIST Please monitor blood sugar before each meal and at bedtime Please give bolus insulin using the Bolus Wizard Please bring blood sugar log for review at the next visit Contact Endocrinology Clinic for low blood sugar events Follow up visit in 2 months RULE OF 15: If you have signs/symptoms [...] skin between your toes clean and dry. URCE SPECIALIST documented in this encounter Progress Notes * Naomi Sanches MD - 07/02/2023 3:00 PM CST Subject&Objective Karina Fuchs is a 28-year-old woman who comes to the Endocrinology office to discuss management of type 1 diabetes mellitus. 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 Other pertinent health history includes cyclic vomiting. The patient was initially diagnosed with diabetes approximately 14 years ago. Her insulin pump is a T slim control IQ device. The patient's current basal rates program is 0.4 units an hour at midnight, 0.7 units an hour at 3 am, 1 units an hour at 8 am, and 1 units an hour at 7:00 pm. Insulin to carbohydrate ratio is 1:8. Insulin sensitivity factor is 1:30, and the patient'sblood glucose target is programmed at 120 to 120 mg/dL. Active insulin time is set to 5 hours. The patient reports occasional, mild hypoglycemic events with intact symptoms of hypoglycemia awareness. Most episodes occur when she is physically active. The patient denied severe low blood sugar events requiring third libertarian intervention. Ms. Fuchs reported that morning blood sugars have been running mostly between 140 and 200 mg/dL with blood sugars checked at other times of the day in the range of 100 to 200 mg/ dL. Average daily dose of insulin requirement was ~46 units/day (Basal 45% vs Bolus 55%). Hemoglobin A1c obtained in May 2023 was 5.3%. Physical Exam Vitals: 07/02/23 1459 BP: 110/68 BP Location: Right Arm BP Position: Sitting BP Cuff Size: Regular Pulse: (!) 111 Resp: 18 Temp: 97.4 ??F (36.3 ??C) TempSrc: Temporal SpO2: 99% Weight: 166 lb (75.3 kg) Constitutional: appears well-developed and well-nourished. No acute distress. Head: Normocephalic and atraumatic. Pulmonary/Chest: Effort normal Lab Results Component Value Date HGBA1C 5.3 06/01/2023 Her insulin pump download was reviewed. Assessment and Plan Assessment Karina Fuchs is a young woman with type 1 diabetes mellitus whose glycemic control was not optimal based on review of her capillary blood glucose report. Treatment consideration and lifestyle modification were discussed with her at some length. If approved, she will activate IQ control function w/ Dexcom G7. The patient will intensify lifestyle modification and continue current pump settings for management of hyperglycemia. The patient will return for office reevaluation in 3 months. PLAN: Monitor blood sugar QAC/QHS 2. Give bolus insulin using the Bolus Wizard 3. Apply for Dexcom G7 4. Bring CBG log for review 5. Contact Endocrinology Clinic for low blood sugar events 6. RTC in 3 months Hypoglycemia PLAN: Consistent CHO diet Rule of 15 Hx of cyclic vomiting and intermittent nausea PLAN: PRN Zofran Further evaluation and Rx from PCP Total time spent on this encounter on this date of service, including pre-visit review of separately obtained history, [id number] interaction performing medically appropriate physical exam, patientcounseling/education, interpretation of diagnostic results, care coordination and documentation was30 minute Naomi Sanches MD 07/02/2023 URCE SPECIALIST documented in this encounter Plan of Treatment Not on file documented as of this encounter Visit Diagnoses Diagnosis Type 1 diabetes mellitus without complication (HCC)- Primary Type I (juvenile type) diabetes mellitus without mention of complication, not stated as uncontrolled Hypoglycemia Hypoglycemia, unspecified Nausea Nausea alone documented in this encounter Care Teams Devops Solutions Architect Relationship Specialty Start Date End Date Carrie Joseph PA [address] [facility] [address] [place], [place] [id number] PCP - General Adult Medicine 11/11/18 Naomi Sanches MD [address] [phone] Consulting Physician Endocrinology 05/21/20 documented as of this encounter
--- OUTSIDE RECORDS SUMMARY | 2024-05-10 18:53 | XMS_ITS | Encounter Summary ---
Author Organization [facility] Care Team Providers Care Knifer Up Name Role Phone Carrie Joseph Primary Care Provider [phone] Naomi Sanches MD Unavailable Encounter Details Date Type Department Care Team (Latest Contact Info) Description 09/01/2023 Travel Social History Tobacco Use Types Packs/Day [...] on filedocumented in this encounter Care Teams Knifer Up Relationship Specialty Start Date End Date Carrie Joseph PA [address] [facility] [address] [place], [place] [id number] PCP - General Adult Medicine 11/11/18 Naomi Sanches MD #[address] [address] Consulting Physician Endocrinology 05/21/20 documented as of this encounter
--- OUTSIDE RECORDS SUMMARY | 2024-05-10 18:53 | XMS_ITS | Encounter Summary ---
Author Organization [facility] Address [address] [place] [place] [address] Phone Care Team Providers Care Key Person Name Role Phone Carrie Joseph Primary Care Provider [phone] Naomi Sanches MD Unavailable Reason for Visit * Reason Comments Diabetes Mellitus Encounter Details Date Type Department Care Team (Late st Contact Info) Description 12/02/2023 10:15 AM CDT Office Visit [facility] - Endocrinology - [place] [address] [place] [address] Naomi Sanches MD [address] [address] Type 1 diabetes mellitus without complication (HCC) (Primary Dx); Hypoglycemia; Insulin pump titration; Class 1 obesity due to excess calories with serious comorbidity and body mass index (BMI) of 32.0 to 32.9 in adult Discharge Disposition: Discharged to home or Selfcare [...] (177 lb) 12/02/2023 10:12 AM CDT Height - - Body Mass Index 32.37 09/01/2023 9:44 AM CDT documented in this encounter Patient Instructions * Patient Instructions* Naomi Sanches MD - 12/02/2023 10:15 AM CDT Please monitor blood sugar before each meal and at bedtime Please give bolus insulin using the Bolus Wizard Please bring blood sugar log for review at the next visit Contact Endocrinology Clinic for low blood sugar events Follow up visit in 3 months RULE OF 15: If you have [...] skin between your toes clean and dry. documented in this encounter Progress Notes * Andie Acosta RMA - 12/02/2023 10:15 AM CDT Attached media from the original note were not included. CGM * Naomi Sanches MD - 12/02/2023 10:15 AM CDT Subject&Objective Karina Fuchs is a 28-year-old woman who comes to the Endocrinology office to discuss management of type 2 diabetes mellitus. Other pertinent health history includes cyclic vomiting and obesity. Thepatient was initially diagnosed with diabetes approximately 12 years ago. Her insulin pump is a T slim control IQ device. The patient's current basal rates program is 0.5 units an hour at midnight, 1 units an hour at 3 am, 0.8 units an hour at 8 am, and 0.8 units an hour at 7:00 pm. Insulin to carbohydrate ratio is 1:8. Insulin sensitivity factor is 1:30, and the patient's blood glucose target is programmed at 120 to 120 mg/dL. Active insulin time is set to 5 hours. Unfortunately, the patient couldn't use DexNatSent G7 sensor due to ?delay of insurance approval for the past 3 months. The patient reports infrequent, mild hypoglycemic events with intact symptoms of hypoglycemia awareness. The patient denied severe low blood sugar events requiring third democrat intervention. Review ofher insulin pump download for the past two weeks showed morning values in the range of 180 to 220 mg/dL, lunch values ranging from 190 to 300 mg/dL, and dinner values in the range of 150 to 280 mg/dL. Hemoglobin A1c obtained by POC testing today was 6.5%, increased from the previous measurement of 5.7% obtained in September 2023. Physical Exam Vitals: 12/02/23 1012 BP: 116/78 BP Location: Right Arm BP Position: Sitting BP Cuff Size: Regular Pulse: 93 Resp: 20 Temp: 97.7 ??F (36.5 ??C) TempSrc: Temporal SpO2: 100% Weight: 177 lb (80.3 kg) Constitutional: appears well-developed and well-nourished. No acute distress. Head: Normocephalic and atraumatic. Cardiovascular: Normal rate and regular rhythm Pulmonary/Chest: Effort normal and breath sounds normal Lab Results Component Value Date HGBA1C 6.5 (A) 12/02/2023 Her insulin pump download was reviewed. Assessment and Plan Assessment Karina Fuchs is a young woman with type 1 diabetes mellitus whose glycemic control was suboptimalbased on review of her insulin pump download. High blood glucose in spite of correctional factor insulin indicates that there is room to increase bolus insulin coverage. Treatment consideration and lifestyle modification were discussed with her at some length. She agreed to change ICR to 1:6 and ISF to 1:25 for management of hyperglycemia. The patient will return for office reevaluation in 3 months. PLAN: 1. Change ICR to 1:6 and ISf to 1:25 from 3:00 am to MN 2. Monitor blood sugar QAC/QHS 3. Bring CBG log for review 4. Contact Endocrinology Clinic for low blood sugar events 5. Check CMP, CBC, LDL, and urine microalbumin 6. Restart Dexcom G7 CGM 7. Arrange diabetic eye exam 8. RTC in 3 months Obesity PLAN: 1. Low carb and calorie diet 2. Avoid snack and beverage between meal and at bedtime Hypoglycemia PLAN: Consistent CHO diet Rule of 15 Total time spent on this encounter on this date of service, including pre-visit review of separately obtained history, [id number] interaction performing medically appropriate physical exam, patientcounseling/education, interpretation of diagnostic results, care coordination and documentation was31 minute Naomi Sanches MD 12/02/2023 documented in this encounter Plan of Treatment Scheduled Orders Name Type Priority Associated Diagnoses Orde r Schedule CMP (COMPREHENSIVE METABOLIC PANEL) Lab Routine Type 1 diabetes mellitus without complication (HCC) Expected: 12/02/2023, Expires: 06/03/2024 UR MICROALBUMIN/CREATININE RATIO RANDOM Lab Routine Type 1 diabetes mellitus without complication (HCC) Expected: 12/02/2023, Expires: 06/03/2024 LOW DENSITY LIPID CHOLESTEROL MEASURED Lab Routine Type 1 diabetes mellitus without complication (HCC) Expected: 12/02/2023, Expires: 06/03/2024 COMPLETE BLOOD COUNT (CBC) WITH DIFF Lab Routine Type 1 diabetes mellitus without complication (HCC) Expected: 12/02/2023, Expires: 06/03/2024 documented as of this encounter Procedures Procedure Name Priority Date/Time Associated Diagnosis Comments POCT GLYCOSYLATED HEMOGLOBIN Routine 12/02/2023 10:21 AM CDT Type 1 diabetes mellitus without complication (HCC) documented in this encounter Results * (ABNORMAL) POCT GLYCOSYLATED HEMOGLOBIN (12/02/2023 [...] not stated as uncontrolled Hypoglycemia Hypoglycemia, unspecified Insulin pump titration Fitting and adjustment of insulin pump Class 1 obesity due to excess calories with serious comorbidity and body mass index (BMI) of 32.0 to 32.9 in adult documented in this encounter Care Teams Key Person Relationship Specialty Start Date End Date Carrie Joseph PA [address] [address] PCP - General Adult Medicine 11/11/18 Naomi Sanches MD [address] [phone] Consulting Physician Endocrinology 05/21/20 documented as of this encounter
--- OUTSIDE RECORDS SUMMARY | 2024-05-10 18:53 | XMS_ITS | Encounter Summary ---
Author Organization [facility] Address [address] [facility] [place] [address] Phone Care Team Providers Care Nut Picker Name Role Phone Carrie Joseph Primary Care Provider [phone] Naomi Sanches MD Unavailable Reason for Visit * Reason Onset Date Comments Medication Refill 09/30/2023 Encounter Details Date Type Department Care Team (Late st Contact Info) Description 09/30/2023 Refill [facility] - Endocrinology - [place] [address] [place] [address] Naomi Sanches MD [address] [phone] Medication Refill Social History Tobacco Use Types Packs/Day Years [...] Telephone Encounter - Naomi Sanches MD - 10/01/2023 8:53 AM CDT Rx sent * Telephone Encounter - Andie Acosta Santosh - 09/30/2023 11:08 AM CDT Patient would like a refill of zofran sent to her pharmacy documented in this encounter Plan of Treatment Not on file documented as of this encounter Visit Diagnoses Not on filedocumented in this encounter Care Teams Nut Picker Relationship Specialty Start Date End Date Carrie Joseph PA [address] [address] PCP - General Adult Medicine 11/11/18 Naomi Sanches MD #[address] [phone] Consulting Physician Endocrinology 05/21/20 documented as of this encounter
--- OUTSIDE RECORDS SUMMARY | 2024-05-10 18:53 | XMS_ITS | Encounter Summary ---
Author Organization [facility] Address [address] [place] [address] Phone Care Team Providers Care Emergency Room Clinician Name Role Phone Carrie Joseph Primary Care Provider [phone] Naomi Sanches MD Unavailable Reason for Visit * Reason Onset Date Comments scheduling diabetic eye exam 05/26/2022 Encounter Details Date Type Department Care Team (Late st Contact Info) Description 05/26/2022 Telephone [facility] - Family Medicine [facility] [address] [place] [address] Naomi Sanches MD [address] [phone] scheduling diabetic eye exam Social History Tobacco Use Types Packs/Day Years [...] Coronavirus/COVID-19? No / Unsure 05/22/2022 2:10 PM CROSS TIE TRAM LOADER documented as of this encounter Miscellaneous Notes * Telephone Encounter - Any Andrade - 05/26/2022 2:19 PM CST LMOM for patient to return call to be scheduled for a Diabetic Eye Exam. If pt has already had one done, she needs to come to PCP's office and sign an LILIA so that we are able to get those records. S TIE TRAM LOADER documented in this encounter Plan of Treatment Not on file documented as of this encounter Visit Diagnoses Not on filedocumented in this encounter Care Teams Emergency Room Clinician Relationship Specialty Start Date End Date Carrie Joseph PA [address] [facility] [address] [place] [address] PCP - General Adult Medicine 11/11/18 Naomi Sanches MD [address] [phone] Consulting Physician Endocrinology 05/21/20 documented as of this encounter
--- OUTSIDE RECORDS SUMMARY | 2024-05-10 18:53 | XMS_ITS | Encounter Summary ---
Author Organization [facility] Care Team Providers Care Drawing Checker Name Role Phone Carrie Joseph Primary Care Provider [phone] Naomi Sanches MD Unavailable Encounter Details Date Type Department Care Team (Latest Contact Info) Description 10/31/2021 Travel Social History Tobacco Use Types Packs/Day [...] suspected to have Coronavirus/COVID-19? No / Unsure 10/31/2021 9:59 AM CDT documented as of this encounter Plan of Treatment Not on file documented as of this encounter Visit Diagnoses Not on filedocumented in this encounter Care Teams Drawing Checker Relationship Specialty Start Date End Date Carrie Joseph PA [address] [place] [address] PCP - General Adult Medicine 11/11/18 Naomi Sanches MD [address] [phone] Consulting Physician Endocrinology 05/21/20 documented as of this encounter
--- OUTSIDE RECORDS SUMMARY | 2024-05-10 18:53 | XMS_ITS | Encounter Summary ---
Author Organization [facility] Address [address] [facility] [place] [address] Phone Care Team Providers Care Laborer Yard Name Role Phone Carrie Joseph Primary Care Provider [phone] Naomi Sanches MD Unavailable Reason for Visit * Reason Onset Date Comments Medication Refill 03/24/2024 Encounter Details Date Type Department Care Team (Late st Contact Info) Description 03/24/2024 Refill [facility] - Endocr[facility]ology - [place] [address] [place] [address] Naomi Sanches MD [address] [phone] Medication Refill Social History Tobacco [...] Telephone Encounter - Naomi Sanches MD - 03/24/2024 5:03 PM CST Rx sent EEPER * Telephone Encounter - Andie Acosta KAMI - 03/24/2024 9:14 AM CST Pharmacy requesting refill of: Requested Prescriptions Pending Prescriptions Disp Refills insulin lispro (HumaLOG) 100 UNIT/ML Solution 60 mL 1 Sig: INJECT UP TO 60 UNITS UNDER THE SKIN PER DAY PER INSULIN PUMP SETTINGS EEPER documented in this encounter Plan of Treatment Not on file documented as of this encounter Visit Diagnoses Not on filedocumented in this encounter Care Teams Laborer Yard Relationship Specialty Start Date End Date Carrie Joseph PA [address] [address] PCP - General Adult Medicine 11/11/18 Naomi Sanches MD [address] [phone] Consulting Physician Endocrinology 05/21/20 documented as of this encounter
--- OUTSIDE RECORDS SUMMARY | 2024-05-10 18:53 | XMS_ITS | Encounter Summary ---
Author Organization [facility] Address [address] [facility] [place] [address] Phone Care Team Providers Care Labor Relations Worker Name Role Phone Carrie Joseph Primary Care Provider [phone] Naomi Sanches MD Unavailable Reason for Visit * Reason Comments Diabetes Mellitus Follow up Encounter Details Date Type Department Care Team (Late st Contact Info) Description 05/22/2022 2:15 PM HEAD OPERATOR Office Visit [facility] - Endocrinology [facility] [address] [place] [address] Naomi Sanches MD [address] [phone] Type 1 diabetes mellitus without complication (HCC) (Primary Dx); Overweight; Hypoglycemia Discharge Disposition: Discharged to home or Selfcare [...] Coronavirus/COVID-19? No / Unsure 05/22/2022 2:10 PM HEAD OPERATOR documented as of this encounter Last Filed Vital Signs Vital Sign Reading Time Taken Comments Blood Pressure 104/70 05/22/2022 2:16 PM HEAD OPERATOR Pulse 107 05/22/2022 2:16 PM HEAD OPERATOR Temperature 36.1 ??C (97 ??F) 05/22/2022 2:16 PM HEAD OPERATOR Respiratory Rate 16 05/22/2022 2:16 PM HEAD OPERATOR Oxygen Saturation 98% 05/22/2022 2:16 PM HEAD OPERATOR Inhaled Oxygen Concentration - - Weight 73.2 kg (161 lb 6.4 oz) 05/22/2022 2:16 P M HEAD OPERATOR Height 157.5 cm (5' 2 ) 05/22/2022 2:16 PM HEAD OPERATOR Body Mass Index 29.52 05/22/2022 2:16 PM HEAD OPERATOR documented in this encounter Patient Instructions * Patient Instructions* Naomi Sanches MD - 05/22/2022 2:15 PM HEAD OPERATOR Please take Lantus 20 units at bedtime Please continue Humalog 1 unit for 8 gm of CHO before each meal Please use correctional factor insulin before each meal as directed Please monitor blood sugar before each meal and at bedtime Please bring blood sugar log for review [...] skin between your toes clean and dry. CORRECTION FACTOR: 1:30 BLOOD GLUCOSE (SUGAR) CORRECTION FACTOR: 1:30 HUMALOG/NOVOLOG UNDER 70 TREAT LOW, USE RULE OF 15 71 - 140 +0 UNIT 141 - 170 +1 UNIT 171 - 200 +2 UNITS 201 - 230 +3 UNITS 231 - 260 +4 UNITS 261 - 290 +5 UNITS 291 - 320 +6 UNITS 321 - 350 +7 UNITS 351 - 380 +8 UNITS 381 - 400 +9 UNITS ABOVE 400 +10 UNITS OPERATOR documented in this encounter Progress Notes * Naomi Sanches MD - 05/22/2022 2:15 PM CST Subject&Objective Karina Fuchs is a 26-year-old woman who comes to the Endocrinology office to discuss management of type 1 diabetes mellitus. The patient's diabetes is complicated by gastroparesis. Other pertinent health history includes cyclic vomiting, recurrent DKA, and overweight. The patient was initially diagnosed with diabetes approximately 11 years ago. Presently, the patient takes Lantus 20 units at bedtime, Humalog 1 unit for every 8 gm of CHO before each meal, and correctional factor insulin of 1:30 for management of hyperglycemia. The patient reports occasional, mild hypoglycemic events with intact symptoms of hypoglycemia awareness. The patient had a severe low blood sugar event requiring third libertarian intervention at night. Unfortunately, the patient did not bring her glucose meter for download or a logbook for review at today's office appointment. Ms. Fuchs reported that morning blood sugars have been running mostly between 100 and 130 mg/dL with blood sugars checked at other times of the day in the range of 100 to 160 mg/ dL. Hemoglobin A1c obtained by POC testing today was 7%, increased from the previous measurement of 6.6% obtained in January 2022. The patient received a T slim insulin pump, but Dexcom CGM is still pending. Physical Exam Vitals: 05/22/22 1416 BP: 104/70 Pulse: 107 Resp: 16 Temp: 97 ??F (36.1 ??C) SpO2: 98% Weight: 161 lb 6.4 oz (73.2 kg) Height: 5' 2 (1.575 m) Constitutional: appears well-developed and well-nourished. No acute distress. Head: Normocephalic and atraumatic. Cardiovascular: Normal rate and regular rhythm Pulmonary/Chest: Effort normal and breath sounds normal Assessment and Plan Karina Fuchs is a young woman with type 1 diabetes mellitus whose glycemic control was reasonablebased on both review of her capillary blood glucose report and today's hemoglobin A1c measurement. Treatment consideration and hypoglycemic precaution were discussed with her at some length. The patient will continue current insulin regimen until she will usea T slim pump w/ Dexcom CGM as discussed. The patient will return for office reevaluation in 3 months. PLAN: 1. Take Lantus 20 units at bedtime 2. Take Humalog 1 unit for 8 gm of CHO before each meal 3. Correctional factor insulin dosed at 1:30 if CBG is > 140 mg/dl 4. Monitor blood sugar QAC/QHS 5. Bring CBG log for review 6. Contact Endocrinology Clinic for low blood sugar events 7. Initiate insulin pump w/ sensor as discussed 8. RTC in 3 months Hypoglycemia PLAN: 1. Consistent CHO diet 2. Rule of 15 Total time spent on this encounter on this date of service, including pre-visit review of separately obtained history, [id number] interaction performing medically appropriate physical exam, patientcounseling/education, interpretation of diagnostic results, care coordination and documentation was40 minute Naomi Sanches MD 05/22/2022 OPERATOR documented in this encounter Plan of Treatment Not on file documented as of this encounter Procedures Procedure Name Priority Date/Time Associated Diagnosis Comments POCT GLYCOSYLATED HEMOGLOBIN Routine 05/22/2022 2:23 PM HEAD OPERATOR Type 1 diabetes mellitus without complication (HCC) documented in this encounter Results * (ABNORMAL) POCT GLYCOSYLATED HEMOGLOBIN (05/22/2022 2:23 PM HEAD OPERATOR) HGB-A1C 7.0(A) 4 - 6 Blood 05/22/2022 2:23 PM HEAD OPERATOR us Naomi Sanches MD POINT OF CARE TESTING (MANUAL) F inal Result documented in this encounter Visit Diagnoses Diagnosis Type 1 diabetes mellitus without complication (HCC)- Primary Type I (juvenile type) diabetes mellitus without mention of complication, not stated as uncontrolled Overweight Hypoglycemia Hypoglycemia, unspecified documented in this encounter Care Teams Labor Relations Worker Relationship Specialty Start Date End Date Deyto, Carrie, PA [address] [facility] [address] [place] [address] PCP - General Adult Medicine 11/11/18 Naomi Sanches MD [address] [phone] Consulting Physician Endocrinology 05/21/20 documented as of this encounter
--- OUTSIDE RECORDS SUMMARY | 2024-05-10 18:53 | XMS_ITS | Encounter Summary ---
Author Organization [facility] Address [facility] [place] [address] Care Team Providers Care Corporate Claims Examiner Name Role Phone Jolanta Freeman MD Primary Care Provider + [phone] Reason for Visit * Reason Comments Vomiting pt with diabetes, sa ys feeling unwell (nonspecific) all day today, ate a small piece of toast all day, vomiting since 2 hours captain room service, h/o dka, last hospitalized a month ago at [facility] * Auth/Cert Specialty Diagnoses / Procedures Referred By Rachael frey Referred To Contact Referral ID Status Reason Start Date Expiration Date Visits Re quested Visits Authorized [id number] 1 1 Encounter Details Date Type Department Care Team (Latest Contact Info) Description 12/25/2017 11:14 PM CDT - 12/30/2017 11:50 AM CDT Hospital Encounter [facility] 9 ICU [address] [place] [address] Mar Ernandez MD [address] [facility] [place] [address] Diomedes Etienne MD [address] [facility] 2L DIV [place]MON[place] [address] Pulmonary Disease Discharge Disposition: Home or Self Care Social [...] Sign Reading Time Taken Comments Blood Pressure 118/78 12/30/2017 11:00 AM CDT Pulse 109 12/30/2017 11:00 AM CDT Temperature 36 ??C (96.8 ??F) 12/30/2017 7:00 AM CDT Respiratory Rate 21 12/30/2017 11:0 0 AM CDT Oxygen Saturation 100% 12/30/2017 9:00 AM CDT Inhaled Oxygen Concentration - - Weight 49.3 kg (108 lb 11.2 oz) 12/29/2017 6:00 AM CDT Height 154.9 cm (5' 1 ) 12/29/2017 6:00 AM CDT Body Mass Index 20.54 12/29/2017 6:00 AM CDT documented in this encounter Functional Status [...] No 12/26/2017 documented as of this encounter Discharge Summaries * Peter Bryan MD - 12/30/2017 11:50 AM CDT Physician Discharge Summary Patient ID: Chey Menjivar [id number] 22 y.o. 1995 Admit date: 12/25/2017 Discharge date: 12/30/2017 Admitting Physician: Diomedes Etienne MD Discharge Physician: Mann Morejon MD Admission Diagnoses: Diabetic Ketoacidosis Discharge Diagnoses: Diabetic ketoacidosis Type I DM Nausea/emesis Depression Discharged Condition: good Hospital Course: Chey Menjivar is a 22 y.o. female with Past Medical History significant for uncontrolledDM, reported gastroparesis, multiple admissions for DKA who was admitted on 12/25 with DKA Due to her frequent exacerbations, endocrinology was consulted and insulin regimen was updated. Additionally, due to symptoms of depression, psychiatry was consulted. Patient was discharged with endocrine and psychiatry follow up. Consults: Endocrinology, Psychiatry Discharge Exam: General: Alert and oriented Skin: No rashes or lesions HEENT: PERRLA Neck: Supple, no adenopathy, no JVD Heart: Regular Lungs: Clear to auscultation. No wheezes, rales or rhonchi Abdomen: Soft, +BS Extremities: No edema/cyanosis Pulses: 2+ and symmetric, no clubbing Disposition: Home Patient Instructions: Current Discharge Medication List START taking these medications Instructions Authorizing Provider erythromycin base 250 MG tablet Commonly known as: E-MYCIN Quantity Dispensed: 60 tablet Take 1 tablet by mouth every 6 hours Peter Bryan omeprazole 40 MG capsule Commonly known as: PriLOSEC Quantity Dispensed: 30 capsule Take 1 capsule by mouth once daily Peter Bryan sertraline 50 MG tablet Commonly known as: ZOLOFT Quantity Dispensed: 30 tablet Take 1 tablet by mouth once daily Peter Bryan CONTINUE taking these medications which have CHANGED Instructions Authorizing Provider insulin glargine vial What changed: how much to take Commonly known as: LANTUS Quantity Dispensed: 8 Each Inject 15 Units subcutaneously at bedtime Peter Bryan * insulin lispro 100 UNIT/ML vial What changed: Another medication with the same name was added. Make sure you understand how and when to take each. Commonly known as: HumaLOG Pt specific sliding scale based off diet * insulin lispro 100 UNIT/ML vial What changed: You were already taking a medication with the same name, and this prescription was added. Make sure you understand how and when to take each. Commonly known as: HumaLOG Quantity Dispensed: 20 mL Inject 4 Units subcutaneously 3 times daily before meals Peter Bryan * Notice: This list has 2 medication(s) that are the same as other medications prescribed for you. Read the directions carefully, and ask your doctor or other care provider to review them with you. Signed: Peter Bryan MD 01/06/2018 9:02 AM documented in this encounter Discharge Instructions * Discharge Instructions* Peter Bryan MD - 12/30/2017 10:53 AM CDT You were admitted with DKA: 1. Please take Lantus 15 units daily, 4 units of humalog with meals + sliding scale 2. Please take erythromycin for nausea for one week as prescribed. Then take as needed for nausea 3. Please take omeprazole 40 mg daily until you see Dr. Ram. Then he can reassess 4. Please continue Sertraline. Will are arranging for follow up with psychiatry 5. Please see Dr. Ram on 02/07/2018 2:00 PM documented in this encounter Medications at Time of Discharge Medication Sig Dispensed Refills Start Date End Date omeprazole (PRILOSEC) 40 MG capsule Take 1 capsule by mouth once daily 30 capsule 2 12/30/2017 sertraline (ZOLOFT) 50 MG tablet Take 1 tablet by mouth once daily 30 tablet 2 12/31/2017 erythromycin base (E-MYCIN) 250 MG tablet Take 1 tablet by mouth every 6 hours 60 tablet 12/30/2017 02/07/2018 insulin glargine (LANTUS) vial Inject 15 Units subcutaneously at bedtime 8 Each 11 12/30/2017 05/06/2018 insulin lispro (HUMALOG) 100 UNIT/ML vial Inject 4 Units subcutaneously 3 times daily before meals 20 mL 2 12/30/2017 02/07/2018 insulin lispro (HUMALOG) 100 UNIT/ML vial Pt specific sliding scale based off diet 02/07/2018 documented as of this encounter Progress Notes * Tristan Martinez RN - 12/30/2017 12:50 PM CDT Attempted to notify patient of appointments scheduled after pt discharged (see orders). Unable to reach pt at home number, left VM for patient to call hospital for message. * Zahra Frederick MD - 12/30/2017 11:50 AM CDT Admit Date: 12/25/2017 Interval History: T1DM/ DKA Subjective: No acute events overnight Good appetite No nausea or vomiting Tolerated breakfast Objective: Patient Vitals for the past 8 hrs: BP Temp Pulse Resp SpO2 12/30/17 1100 118/78 - 109 21 - 12/30/17 1000 - - (!) 123 15 - 12/30/17 0900 116/74 - (!) 111 20 100 % 12/30/17 0800 102/58 - 105 13 100 % 12/30/17 0700 107/65 96.8 ??F (36 ??C) 73 17 99 % General: calm and comfortable Neck: supple Resp: clear to auscultation b/l, no added sounds CVS: normal first and second heart sound, no murmur Neuro: alert and oriented to time, place and person, no neurological deficits Psych: cooperative Lower ext: peripheral pulses palpable. No edema. Current Facility-Administered Medications Medication Dose Route Frequency Provider Last Rate Last Dose ??? sertraline (ZOLOFT) tablet 50 mg 50 mg Oral QDAY Peter Bryan MD 50 mg at 12/30/17 0840 ??? erythromycin base (E-MYCIN) tablet 250 mg 250 mg Oral q6h Peter Bryan MD 250 mg at [id number] ??? pantoprazole (PROTONIX) injection 40 mg 40 mg Intravenous BID Peter Bryan MD ??? insulin aspart (NovoLOG) pen 0-6 Units 0-6 Units Subcutaneous q4h Peter Bryan MD 1 Units at12/30/17 0407 ??? insulin glargine (LANTUS) pen 15 Units 15 Units Subcutaneous QDAY Peter Bryan MD 15 Units at 12/30/17 0851 ??? glucose (Diabetic Use) oral gel Oral PRN Peter Bryan MD ??? dextrose IV 12.5-25 g 25-50 mL Intravenous PRN Peter Bryan MD ??? glucagon (GLUCAGEN) injection 1 mg 1 mg Intramuscular PRN Peter Bryan MD ??? ondansetron (ZOFRAN) injection 4 mg 4 mg Intravenous q4h PRN Connie Loya MD 4 mg at 12/27/17 0735 ??? enoxaparin (LOVENOX) injection 40 mg 40 mg Subcutaneous QDAY AT 0900 Connie Loya MD ??? acetaminophen (TYLENOL) tablet 650 mg 650 mg Oral q4h PRN Connie Loya MD Current Outpatient Prescriptions Medication Sig Dispense Refill ??? [START ON 12/31/2017] sertraline (ZOLOFT) 50 MG tablet Take 1 tablet by mouth once daily 30 tablet 2 ??? insulin glargine (LANTUS) vial Inject 15 Units subcutaneously at bedtime 8 Each 11 ??? erythromycin base (E-MYCIN) 250 MG tablet Take 1 tablet by mouth every 6 hours 60 tablet 0 ??? insulin lispro (HUMALOG) 100 UNIT/ML vial Inject 4 Units subcutaneously 3 times daily before meals 20 mL 2 ??? omeprazole (PRILOSEC) 40 MG capsule Take 1 capsule by mouth once daily 30 capsule 2 ??? insulin lispro (HUMALOG) 100 UNIT/ML vial Pt specific sliding scale based off diet Data Review: Results for ABDELRAHMAN MENJIVARYSSA Samir ( ) as of 12/30/2017 14:09 Ref. Range 12/29/2017 20:04 12/29/2017 23:54 12/30/2017 04:04 12/30/2017 05:45 12/30/2017 08:17 Glucose Latest Ref Range: 70 - 115 mg/dL 174 (H) BUN Latest Ref Range: 7 - 26 mg/dL 5 (L) Creatinine Latest Ref Range: 0.6 - 1.2 mg/dL 0.4 (L) BUN/Creatinine Ratio Latest Ref Range: 7 - 23 13 Sodium Latest Ref Range: 136 - 145 mmol/L 136 Potassium Latest Ref Range: 3.5 - 4.5 mmol/L 3.7 Chloride Latest Ref Range: 98 - 107 mmol/L 102 Carbon Dioxide Latest Ref Range: 22 - 29 mmol/L 25 Anion Gap Latest Ref Range: 8 - 18 13 Calcium Latest Ref Range: 8.4 - 10.2 mg/dL 8.4 eGFR Latest Ref Range: >60 mL/min/1.73 m2 >60 Osmolality Calc Latest Ref Range: 270 - 300 mOsm/kg 283 WBC Latest Ref Range: 3.5 - 10.5 10??3/uL 5.9 RBC Latest Ref Range: 3.90 - 5.00 10??6/uL 4.05 Hemoglobin Latest Ref Range: 12.0 - 15.5 g/dL 10.8 (L) Hematocrit Latest Ref Range: 35.0 - 45.0 % 32.4 (L) MCV Latest Ref Range: 81.0 - 97.0 fL 80.0 (L) MCH Latest Ref Range: 28.0 - 34.0 pg 26.7 (L) MCHC Latest Ref Range: 32.0 - 36.0 g/dL 33.3 PLATELET (SLH) Latest Ref Range: 150 - 400 10??3/uL 332 RDW (SD) Latest Ref Range: 36.0 - 50.0 fL 41.1 RDW Latest Ref Range: 11.2 - 14.8 % 14.1 MPV Latest Ref Range: 9.3 - 12.8 fL 8.6 (L) WBC (corrected for NRBC) Latest Units: 10??3/uL 5.9 Neutro Abs Manual Latest Ref Range: 1.60 - 7.00 10??3/uL 1.36 (L) Neutrophil % Manual Latest Ref Range: 30 - 60 % 23 (L) Lymphocyte % Manual Latest Ref Range: 20 - 45 % 70 (H) Lymphocyte Absolute Manual Latest Ref Range: 0.80 - 2.90 10??3/uL 4.13 (H) Monocyte % Manual Latest Ref Range: 2 - 10 % 7 Platelet Estimate Latest Ref Range: Adequate Adequate TOTAL CELL COUNT (SLH) Unknown 100 Ovalocytes Latest Ref Range: None Occasional (Abnormal) Glucose WB/POC Latest Ref Range: 70 - 115 mg/dL 193 (H) 156 (H) 169 (H) 129 (H) Monocyte Absolute Manual Latest Ref Range: 0.14 - 0.66 10??3/uL 0.41 Results for CHEY MENJIVAR ( ) as of 12/30/2017 14:09 Ref. Range 12/09/2017 16:23 12/28/2017 06:21 Hemoglobin A1c Latest Ref Range: 4.2 - 6.3 % 9.5 (H) Estimated Average Glucose Latest Units: mg/dL 226 TSH Latest Ref Range: 0.350 - 4.940 uIU/mL 1.573 Assessment: Active Problems: Type 1 diabetes mellitus with ketoacidosis without coma High anion gap metabolic acidosis Hypokalemia Gastroparesis due to DM Plan: Being discharged today Please discharge on home regimen of lantus 12 units daily and Humalog (I: C ratio of 1:8 and CF of 1 for 50 more than 150) Patient to follow up with her primary care doctor Also noted: she was seen by psychiatrist- patient has depression and was started on Sertraline For questionable pmhx of gastroparesis which is a diagnosis of exclusion recommend outpatient work up Will continue to follow Discussed with attending physician Dr. Elana Frederick MD Endocrine fellow Associated attestation - Gabe Marshall MD - 12/30/2017 2:23 PM CDT Pt was discharged prior to being seen by me. Recommendations are below. Impression: 1. T1DM 2. DKA resolved 3. Depression Recommendation: 1. Lantus 12 units QAM 2. Novolog ICR 1:8, CF 1 unit for 50/150 3. Appreciate Psychiatry input, started on Sertraline 4. Needs outpt GI work-up Gabe Marshall MD * Cody Eid MD - 12/30/2017 11:50 AM CDT Psychiatry Consult Service Attending Note I saw & examined the patient & discussed my findings with Dr. Solorio on 12/30/17. My additions &/or exceptions include: A) depression, unspecified; DKA; anemia P) 1. Sertraline 50 mg daily after breakfast. 2. Pastoral Care. 3. She has telephone number for counseling. Will follow. Identification: Chey Menjivar is a 22 y.o. female, single, . CC: Depression & crying History of Present Illness/Interval History: Pertinent Positives/Negatives: admitted now in [facility]. DM since age 12. More hospitalizations for DM control since 2015. A lot of stressors in the last 7 months. Past psychiatric history positive only for counseling & 2 months of cutting on self in her teens. No suicide attempts. Patient: Her sleep is as good as can be expected. Appetite is as good as can be expected. Mood is ok. She was sad a lot for awhile. Anxiety level is high due to her stressors. No passive wish. Patient feels safe. Significant Examination Findings: Alert Vague & guarded responses Breathing was unlabored. Fund of knowledge: Poor Station/Gait: sitting, Mood dysphoric, Affect restricted, Thought content - no SI, delusions Data Review/Other Information: WBC Date Value Ref Range Status 12/30/2017 5.9 3.5 - 10.5 10??3/uL Final 12/10/2017 6.3 4.4 - 10.7 x10E9/L Final RBC Date Value Ref Range Status 12/30/2017 4.05 3.90 - 5.00 10??6/uL Final 12/10/2017 3.76 (L) 3.80 - 5.20 x10E12/L Final Hemoglobin Date Value Ref Range Status 12/30/2017 10.8 (L) 12.0 - 15.5 g/dL Final 12/10/2017 10.6 (L) 12.0 - 15.6 gm/dL Final Hematocrit Date Value Ref Range Status 12/30/2017 32.4 (L) 35.0 - 45.0 % Final 12/10/2017 31.2 (L) 35.9 - 45.5 % Final Platelet Date Value Ref Range Status 12/30/2017 332 150 - 400 10??3/uL Final Albumin Date Value Ref Range Status 12/25/2017 4.2 3.4 - 5.0 g/dL Final ALT/SGPT Date Value Ref Range Status 12/25/2017 10 0 - 55 Units/L Final AST/SGOT Date Value Ref Range Status 12/25/2017 12 5 - 34 Units/L Final Glucose Date Value Ref Range Status 12/30/2017 174 (H) 70 - 115 mg/dL Final Sodium Date Value Ref Range Status 12/30/2017 136 136 - 145 mmol/L Final Comment: Checked Chloride Date Value Ref Range Status 12/30/2017 102 98 - 107 mmol/L Final CO2 Date Value Ref Range Status 12/30/2017 25 22 - 29 mmol/L Final 12/10/2017 24 22 - 31 mmol/L Final BUN Date Value Ref Range Status 12/30/2017 5 (L) 7 - 26 mg/dL Final 12/10/2017 3 (L) 7 - 21 mg/dL Final Creatinine Date Value Ref Range Status 12/30/2017 0.4 (L) 0.6 - 1.2 mg/dL Final 12/10/2017 0.31 (L) 0.50 - 1.30 mg/dL Final eGFR Date Value Ref Range Status 12/30/2017 >60 >60 mL/min/1.73 m2 Final eGFR MDRD Date Value Ref Range Status 12/10/2017 >60 >60 mL/min/1.73m2 Final Calcium Date Value Ref Range Status 12/30/2017 8.4 8.4 - 10.2 mg/dL Final 12/10/2017 7.5 (L) 8.5 - 10.1 mg/dL Final Bilirubin Total Date Value Ref Range Status 12/25/2017 1.1 0.2 - 1.2 mg/dL Final Total Protein Date Value Ref Range Status 12/25/2017 7.5 6.0 - 8.3 g/dL Final Phosphorus Date Value Ref Range Status 12/29/2017 3.5 2.3 - 4.7 mg/dL Final 12/10/2017 4.4 2.5 - 4.9 mg/dL Final TSH Date Value Ref Range Status 12/28/2017 1.573 0.350 - 4.940 uIU/mL Final Hemoglobin A1c Date Value Ref Range Status 12/09/2017 9.5 (H) 4.2 - 6.3 % Final Cody Eid MD 12/30/2017 * Tristan Martinez RN - 12/30/2017 11:50 AM CDT Real time (3821) - Pt called hospital and informed of all scheduled appointments per Gilmar Arana's note and orders. Pt repeated all information, verbalized understanding & denied any further questions. * Obdulia Christensen - 12/30/2017 11:50 AM CDT SW contacted pt. To ensure that she received the appointment information. Pt. Stated that she received all the information from her RN and had no further questions. Best number to reach pt.: #[phone] NADIA Liu [phone] 12/30/2017 4:43 PM * Tristan Martinez RN - 12/30/2017 11:45 AM CDT Pt discharged per MD order. public welfare worker to call patient with psych appt f/u schedule, Dr. Bryan aware of this and okay to discharge pt to home. Discharge instructions, follow-up appointments, medications/prescriptions, and signs and symptoms to report explained to pt and pt verbalized understanding & denied any further questions. Handouts with all of this information also given to patient. IV removed and pt left floor per in stable condition. Pt left for home with her grandma. * SumitChico - 12/30/2017 11:22 AM CDT Discharge Senior Web Architect received request from Magdalena Arana & Obdulia Christensen to arrange follow-up appointment for Patient with Psychiatry (Dr. Harrison). This designer/writer called [facility] @ [phone] Harrison does not accept adults. Discharge Senior Web Architect verified demographics with patient and will need to refer account to [facility] for assistance. Ms. Menjivar states she does have a PCP (does not know his name, she has never seen him). Ms. Menjivar will need assistance with PCP & Psychiatry. No further follow-up needs from county director welfare indicated at this time. Chico Arana, Discharge Senior Web Architect 12/30/2017 Discharge Senior Web Architect called [facility] @ [phone] and no outpatient services. Senior Web Architect was referred to [facility] Chandana. Senior Web Architect called [phone] and spoke with Renea, Senior Web Architect was able to obtain follow-up appointment for Patient with Pau[facility] Sant[facility] on 03/30/18 at 11:00am.No further follow- up needs from county director welfare indicated at this time. Chico Arana, Discharge Senior Web Architect 12/30/2017 Discharge Senior Web Architect called [facility] @ [phone] and spoke with Nayeli. Senior Web Architect was informed of appointment with Carrie Joseph ([phone]) on 01/17/18 @ 12:45pm. Patient has new PCP appointment on 01/17/18 @ 12:45pm, Endocrinology on 02/07/18 @ 2:00pm and with Psychiatry on 03/30/18 @ 11:00am. No further follow-up needs from county director welfare indicated at this time. Chico Arana, Discharge Senior Web Architect 12/30/2017 * Obdulia Christensen - 12/30/2017 10:37 AM CDT Discharge To Home Discharge Date: 12/30/17 Transportation at time of Discharge: Family Family Member who will transport: Grandmother Phone: TBD Available time: Upon discharge Medicaid Transport Arranged: N/A Ambulance Arranged: N/A Comments: Pt. Medically cleared for discharge. Referral initiated to discharge county director welfare to assist with PCP and arranging follow up care with psychiatry. NADIA Liu [phone] 12/30/2017 10:38 AM * Peter Bryan MD - 12/30/2017 8:38 AM CDT [facility] Medical Intensive Care Unit Note: Name: Chey Menjivar, [id number] Age: 22 y.o. Room: [address] [place] [address] Date Admitted: 12/25/2017 Chief Complaint: DKA History of Present Illness: Chey Menjivar is a 22 y.o. female with Past Medical History significant for uncontrolledDM, reported gastroparesis, multiple admissions for DKA who was admitted on 12/25 with DKA. Interval events: Wants to try DM diet today. Nausea resolved. Objective: Vitals: 12/30/17 0500 12/30/17 0600 12/30/17 0700 12/30/17 0800 BP: 99/57 108/66 107/65 102/58 Pulse: 71 74 73 105 Resp: 19 19 17 13 Temp: 96.8 ??F (36 ??C) SpO2: 99% 99% 99% 100% Weight: Estimated body mass index is 20.54 kg/(m^2) as calculated from the following: Height as of this encounter: 1.549 m (5' 1 ). Weight as of this encounter: 49.3 kg (108 lb 11.2 oz). Physical Exam: General: Alert and oriented Skin: No rashes or lesions HEENT: PERRLA Neck: Supple, no adenopathy, no JVD Heart: Regular Lungs: Clear to auscultation. No wheezes, rales or rhonchi Abdomen: Soft, +BS Extremities: No edema/cyanosis Pulses: 2+ and symmetric, no clubbing Data: K 3.7 Assessment: 1. Diabetic ketoacidosis 2. Nausea/emesis with reported gastroparesis 3. Depression Plan: Neuro: Psychiatry following, will schedule f/u. Sertraline 50 mg daily Respiratory: PT, up in chair Cardiovascular/Hemodynamics: d/c IVF GI: Scheduled erythromycin for gastroparesis. PPI bid. Diabetic diet. Will d/c on PPI for now Renal/lytes: Strict I&O Heme: No active issues ID: No active issues Endo: Endocrine following. Will schedule f/u before d/c Dvt prophylaxis: Lovenox GI prophylaxis: NA Lines: PIV Code Status: TSL-1 Disposition: If tolerates breakfast, will d/c home with f/u Peter Bryan D.O. Pulmonary and Critical Care Fellow, PGY-6 [facility] [employer] Division of Pulmonary, Critical Care and Sleep Medicine 12/30/2017 Associated attestation - Mann Morejon MD - 01/04/2018 9:17 AM CDT ICU progress Note: I saw and evaluated the patient, and agree with the Dr. Bryan's findings and plan except for changes as per my note. Interval History: - Report vomited all night - has tachycardia and anion gap opened Started medication reviewed Vitals: 12/30/17 0800 12/30/17 0900 12/30/17 1000 12/30/17 1100 BP: 102/58 116/74 118/78 Pulse: 105 (!) 111 (!) 123 109 Resp: 13 20 15 21 Temp: SpO2: 100% 100% Weight: Exam: No distress Afebrile Normal MM; Non-icterus No JVD PERRL AAO x3, non focal CVS: S1S2+, RRR Lungs: No wheezing or crackles Abd: soft NT ND BS+ Ext: no edema; normal peripheral pulses Lab data reviewed ASSESSMENT AND PLAN: Patient Active Problem List Diagnosis ??? Type 1 diabetes mellitus with ketoacidosis without coma ??? High anion gap metabolic acidosis ??? Hypokalemia ??? Gastroparesis due to DM - Re-start IV fluid - continue w/ reglan and add erythromycin w/ zofran. - full liquid diet - Hemodynamic monitoring. Goal MAP ~65mmHg - Strict I/O. Monitor UOP. - Repeat chemistry - Replace electrolytes as needed. Keep K+3.5-4.0 meq,Mg~2.0 mg/dl,Po4-3.0-4.0 mmol/l - Lantus, meal time and SSI BGM monitoring with goal < 180 mg/dl Prophylaxis: a) Stress Ulcer: PPI (b) DVT: Lovenox/SCD Access/ Lines: PIV Disposition: discharge today Mann Morejon MD 01/04/2018 * Amelia Solorio DO - 12/30/2017 7:56 AM CDT Psychiatry Consult Progress Note Admit Date: 12/25/2017 Date of visit: 12/30/2017 Hospital day: Hospital Day: 6 Subjective: Ms. Chey Menjivar is a 22 year old female with a history of Type 1 Diabetes Mellitus who presented on 12/25/17 to [facility] with nausea, vomiting, and pain. She was found to be inDiabetic Ketoacidosis with an anion gap of 30. Psychiatry was consulted for depression. Interval History: Per chart review, [employer] did see the patient and brought her a coloring book and markers. No acute events overnight. Upon interview, Ms. Menjivar stated she was better. She stated she received numbers for outpatient therapy and has plans to call when outside the hospital. She also reported feeling hopeful about going to school and finishing her degree. She denied thoughts of harming herself or anyone else. She denied any additional questions or concerns at this time. Scheduled Medications: sertraline 50 mg Oral QDAY erythromycin base 250 mg Oral q6h pantoprazole 40 mg Intravenous BID insulin aspart 0-6 Units Subcutaneous q4h insulin glargine 15 Units Subcutaneous QDAY enoxaparin 40 mg Subcutaneous QDAY AT 0900 PRN Medications: glucose (Diabetic Use) PRN dextrose 25-50 mL PRN glucagon 1 mg PRN ondansetron 4 mg q4h PRN acetaminophen 650 mg q4h PRN Objective: Mental Status Exam: Appearance: White female, appears stated age. Short dark blonde hair. Eye Contact: Good. Attitude toward examiner: Cooperative. Speech: Unremarkable in rate, rhythm, volume. Psychomotor: No agitation noted. No retardation noted. Mood: Fine. Affect: Euthymic. Thought Process: Associations intact. Logical, goal directed. Thought Content: Denied suicidal ideation. Denied homicidal ideation. Perception: Denied visual hallucinations. Denied auditory hallucinations. Does not appear to be responding to internal stimuli. Fund of Knowledge: Average. Cognition: Oriented to person, place, time. Attends to interview. Insight: Fair. Judgment: Fair. Investigations: Blood Counts: Recent Labs 12/30/17 0545 12/29/17 0642 12/28/17 0621 WBC 5.9 9.1 6.6 HGB 10.8 L 13.3 10.6 L HCT 32.4 L 40.1 32.3 L PLT 332 432 H 358 MCV 80.0 L 81.5 82.2 MCH 26.7 L 27.0 L 27.0 L MCHC 33.3 33.2 32.8 RDW 14.1 14.2 14.4 RDWSD 41.1 42.2 43.8 MPV 8.6 L 9.1 L 8.8 L Metabolic: Recent Labs 12/30/17 0545 12/29/17 1451 12/29/17 0642 12/28/17 0621 GLU 174 H 198 H 252 H 107 CREATININE 0.4 L 0.4 L 0.5 L 0.4 L CALCIUM 8.4 8.7 9.4 8.2 L TSH 1.573 No results for input(s): ESR, CRP in the last 72 hours. Urine Drug Screen: No results for input(s): OPIATESUR, LABAMPH, LABBARB, LABBENZ, COCAINESCRN, METHADONE, LABPHEN, LABCANN in the last 72 hours. Other: Blood Alcohol (BAL): No results for input(s):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 a 22 y.o. female with PMH of T1DM admitted with DKA (presented with nausea, vomiting and abdominal pain--> Glucose 334, BOHB 4.55, Venous pH of 7.23, AG of 25, HCO3 13). She has had negative UA and CXR in the hosptial. She was started on insulin drip on 12/26 at 2:36 am and dcedon 12/27/2017 at 6:55 am. Bridged with lantus 12 units at 4:35 am. On carb consistent diet currently. But her Hco3 dropped to 15 and AG increased to 15 at noon so was restarted on insulin gtt ?? In the hosp: currently on insulin gtt ?? T1DM, has had 4 hospitalization for DKA in 2018 Dx at age 14 Had 6 - 7 episodes of DKA so far. Most of them happened in last 3 years No complications Was previously seen by Paleontological Helper, Dr. Manzano (not following currently due to change in insurance) Has an appt at [facility] endocrine dept in Jan 2018 ?? Home regimen Lantus 12U QPM Humalog I : C = 1 : 8 and SSI 1U - 50 > 150 (Approximately uses 6-7U with meals but of late has poor appetite and no eating much and is not taking humalog frequently) ?? Last A1C - 9.5% On 12/09/2017 ? BG at home x 3 Fasting 100s Bed time - 100s ? Symptoms- No polyuria/polydipsia, fatigue,nocturia No Nightmares/night sweats/am headaches ?? Hypoglycemic symptoms/episodes - none Has Hypoglycemic Awareness at 70 ?? Exercise- No ? Medication Compliance - good Last eye exam - a year ago - no diabetic Retinopathy No Neuropathy Past Medical History: Past Medical History: Diagnosis Date ??? Diabetes Diagnosed at age 12 ??? DKA (diabetic ketoacidoses) ??? IUD contraception Past Surgical History: Past Surgical History: Procedure Laterality Date ??? Section ??? Tonsillectomy Social History: Social History Substance Use Topics ??? Smoking status: Never Smoker ??? Smokeless tobacco: Never Used ??? Alcohol use Yes Comment: occasional Family History: No family hx of diabetes Allergies: No Known Allergies Medications: Current Facility-Administered Medications Medication ??? insulin glargine (LANTUS) pen 12 Units ??? potassium chloride 40 mEq in 0.9% NaCl 270 mL bolus ??? metoclopramide (REGLAN) injection 10 mg ??? polyethylene glycol 3350 (MIRALAX) packet 17 g ??? insulin aspart (NovoLOG) pen 0-12 Units ??? lactated ringers infusion ??? glucose (Diabetic Use) oral gel ??? dextrose IV 12.5-25 g ??? glucagon (GLUCAGEN) injection 1 mg ??? ondansetron (ZOFRAN) injection 4 mg ??? enoxaparin (LOVENOX) injection 40 mg ??? acetaminophen (TYLENOL) tablet 650 mg I have reviewed all medications. Review of Systems: Constitutional: no fever or chills Eyes: no blurring of vision ENT/Mouth: no rash or oral ulcers. Cardiovascular: no chest pain or palpitations Resp: no SOB GI: nasuea, vomiting, abdominal pain now resolved : no dysuria Skin:no rash Neuro:no numbness or tingling Psychiatric: no anxiety or depression Endocrine: as mentioned in HPI All other systems negative: wnl Physical Exam: BP 130/57 Pulse 133 Temp 98.5 ??F (36.9 ??C) Resp 18 Ht 5' 1 (1.549 m) Wt 114 lb 13.8 oz (52.1 kg)SpO2 100% BMI 21.7 kg/m2 General: calm and comfortable Neck: supple Resp: clear to auscultation b/l, no added sounds CVS: normal first and second heart sound, no murmur Neuro: alert and oriented to time, place and person, no neurological deficits Psych: cooperative Lower ext: peripheral pulses palpable. No edema. Data: Results for MENJIVAR CHEY Samir ( ) as of 12/27/2017 13:39 Ref. Range 12/27/2017 03:57 12/27/2017 05:38 12/27/2017 06:51 12/27/2017 11:17 12/27/2017 12:09 Glucose Latest Ref Range: 70 - 115 mg/dL 261 (H) BUN Latest Ref Range: 7 - 26 mg/dL 5 (L) Creatinine Latest Ref Range: 0.6 - 1.2 mg/dL 0.4 (L) BUN/Creatinine Ratio Latest Ref Range: 7 - 23 13 Sodium Latest Ref Range: 136 - 145 mmol/L 133 (L) Potassium Latest Ref Range: 3.5 - 4.5 mmol/L 4.3 Chloride Latest Ref Range: 98 - 107 mmol/L 103 Carbon Dioxide Latest Ref Range: 22 - 29 mmol/L 15 (L) Anion Gap Latest Ref Range: 8 - 18 19 (H) Calcium Latest Ref Range: 8.4 - 10.2 mg/dL 8.5 eGFR Latest Ref Range: >60 mL/min/1.73 m2 >60 Osmolality Calc Latest Ref Range: 270 - 300 mOsm/kg 282 Glucose WB/POC Latest Ref Range: 70 - 115 mg/dL 138 (H) 224 (H) 192 (H) 291 (H) Results for CHEY MENJIVAR ( ) as of 12/27/2017 13:39 Ref. Range 12/09/2017 16:23 Hemoglobin A1c Latest Ref Range: 4.2 - 6.3 % 9.5 (H) Assessments and Recommendations: Ms. Chey Menjivar is a 22 yrs old female with pmhx of type 1 DM admitted with DKA on 12/25/2017 #DM 1/DKA On insulin gtt As opened her on gap again recommend keeping her in ICU today on insulin gtt Recommend bridging her tomorrow morning Bridge with lantus 12 units 2 hrs before stopping the drip Order Novolog 4 units TID with meals (if eating 50%- give 2 u, if not eating- hold it) Correction factor with Novolog 1 unit for 50 more than 150 TID with meals Acuchecks TID with meals, bedtime and at 2 am Hypoglycemia protocol Carb consistent diet Also obtain TSH and celiac panel Please obtain psychiatric consult to rule out underlying depression as she has been having multipleDKA admission/ leaving AMA and question about compliance. Discussed with attending physician Dr. Elana Frederick MD Endocrine fellow Associated attestation - Gabe Marshall MD - 12/27/2017 4:05 PM CDT Endo Attending Note Chey Menjivar is a 22 y.o. female who was seen and examined with Dr. Frederick on 12/27/2017 at 3:20PM. I confirm the fellow's documentation (please see their note of the same date/encounter) except asnoted in my revisions below. Briefly, Chey Menjivar was seen for further evaluation of uncontrolled T1DM during admission for DKA. Pt feels overwhelmed depressed. Past Medical History: No date: Diabetes Comment: Diagnosed at age 12 No date: DKA (diabetic ketoacidoses) No date: IUD contraception PE BP 109/60 Pulse 110 Temp 98.3 ??F (36.8 ??C) Resp 19 Ht 5' 1 (1.549 m) Wt 114 lb 13.8 oz (52.1 kg)SpO2 100% BMI 21.7 kg/m2 Wt Readings from Last 3 Encounters: 12/26/17 : 114 lb 13.8 oz (52.1 kg) 12/09/17 : 110 lb 3.7 oz (50 kg) 11/28/17 : 125 lb (56.7 kg) Awake, alert RRR, S1, S2 normal CTAB No pedal edema My exam confirms by the findings by the housestaff otherwise. I agree with the assessment and plan as outlined. Labs/Imaging: I have personally reviewed the pertinent labs and radiological images. Results for CHEY MENJIVAR ( ) as of 12/27/2017 16:03 Ref. Range 12/27/2017 12:09 12/27/2017 13:52 12/27/2017 14:55 12/27/2017 15:48 Glucose Latest Ref Range: 70 - 115 mg/dL 261 (H) BUN Latest Ref Range: 7 - 26 mg/dL 5 (L) Creatinine Latest Ref Range: 0.6 - 1.2 mg/dL 0.4 (L) BUN/Creatinine Ratio Latest Ref Range: 7 - 23 13 Sodium Latest Ref Range: 136 - 145 mmol/L 133 (L) Potassium Latest Ref Range: 3.5 - 4.5 mmol/L 4.3 Chloride Latest Ref Range: 98 - 107 mmol/L 103 Carbon Dioxide Latest Ref Range: 22 - 29 mmol/L 15 (L) Anion Gap Latest Ref Range: 8 - 18 19 (H) Calcium Latest Ref Range: 8.4 - 10.2 mg/dL 8.5 eGFR Latest Ref Range: >60 mL/min/1.73 m2 >60 Osmolality Calc Latest Ref Range: 270 - 300 mOsm/kg 282 Glucose WB/POC Latest Ref Range: 70 - 115 mg/dL 164 (H) 169 (H) 164 (H) Results for CHEY MENJIVAR ( ) as of 12/27/2017 16:03 Ref. Range 12/09/2017 16:23 Hemoglobin A1c Latest Ref Range: 4.2 - 6.3 % 9.5 (H) Estimated Average Glucose Latest Units: mg/dL 226 Impression: 1. T1DM 2. DKA Recommendation: 1. When ready to transition off insulin gtt Lantus 12 units daily Novolog 4 units plus 1 unit for 50/150 with meals Accuchecks premeals, HS, 2AM 2. Would recommend Psych consult for depression and diabetes distress 3. Seen by inclusion paraeducator today following our visit 4. Check TSH, celiac panel Electronically signed by Gabe Marshall MD Oil Field Workerairframe technical officer Division of Endocrinology, Diabetes & Metabolism documented in this encounter ED Notes * Ken Mendoza, EMT-P - 12/30/2017 11:50 AM CDT Pt has had multiple unsuccessful IV attempts made. It was determined that the pt would benefit fromultrasound IV. Due to depth of vein an Accucath IV was used. A peripheral IV called an Accucath has been placed. This IV is placed with a guide wire causing less insertion trauma. Studies have shown these IVs can dwell longer without complications. This IV is flushed and cared for like a normal peripheral IV and is power injectable. If the IV site is complication free, the Accucath can dwell up to 30 days per textile machinery instructor's recommendation. Change dressing prn or at least weekly. 20g 2.25 right bracial * Que Waldrop RN - 12/26/2017 3:37 AM CDT Gave report to Catarina Lazo RN. Answered all questions, no concerns from Nurse. Will turnover care at this time. * Dannie Lafleur MD - 12/26/2017 3:01 AM CDT [facility] Emergency Department Resident History and Physical 12/26/2017 HPI obtained from patient Chief Complaint: Vomiting (pt with diabetes, says feeling unwell (nonspecific) all day today, ate a small piece of toast all day, vomiting since 2 hours captain room service, h/o dka, last hospitalized a month ago at [facility]) HPI: Chey Menjivar is a 22 y.o. female with DM, presents to [facility] ED with abdominal pain, nausea and vomiting. Vomiting started 2 hours prior to arrival, nbnb. Pt states this feels like I am in DKA. Achy, diffuse abdominal pain. Improves with nothing, worse with nothing. Pt states compliance with insulin, but mom states she does not know who well she has been using her insulin because she can't keepan eye on her all the time Interpretor used: none Past Medical History: Diagnosis Date ??? Diabetes Diagnosed at age 12 ??? DKA (diabetic ketoacidoses) ??? IUD contraception Past Surgical History: Procedure Laterality Date ??? Section ??? Tonsillectomy No family history on file. Social History Substance Use Topics ??? Smoking status: Never Smoker ??? Smokeless tobacco: Never Used ??? Alcohol use Yes Comment: occasional Review of Symptoms: Review of Systems Constitutional: Positive for chills. Negative for fever. HENT: Negative for rhinorrhea and sore throat. Eyes: Negative for visual disturbance. Respiratory: Negative for cough and shortness of breath. Cardiovascular: Negative for chest pain. Gastrointestinal: Positive for abdominal pain, diarrhea, nausea and vomiting. Genitourinary: Negative for difficulty urinating and dysuria. Skin: Negative for rash. Neurological: Positive for headaches. Negative for dizziness. Psychiatric/Behavioral: Negative for suicidal ideas. Physical Exam: BP 126/72 Pulse 117 Temp 98.9 ??F (37.2 ??C) Resp 19 Ht 1.549 m (5' 1 ) Wt 52.2 kg (115 lb) SpO2 99% BMI 21.73 kg/m2 Physical Exam Constitutional: She is oriented to person, place, and time and well-developed, well-nourished, and in no distress. HENT: Head: Normocephalic and atraumatic. Dry mucous membranes Eyes: EOM are normal. Pupils are equal, round, and reactive to light. Neck: Normal range of motion. Neck supple. Cardiovascular: Regular rhythm and normal heart sounds. Exam reveals no gallop and no friction rub. No murmur heard. tachycardia Pulmonary/Chest: Effort normal and breath sounds normal. No respiratory distress. She has no wheezes. Abdominal: Soft. Bowel sounds are normal. There is no tenderness. Musculoskeletal: Normal range of motion. She exhibits no edema or tenderness. Neurological: She is alert and oriented to person, place, and time. No cranial nerve deficit. GCS score is 15. Skin: Skin is warm and dry. Psychiatric: Affect normal. ED Labs Labs Reviewed CBC W AUTO DIFFERENTIAL - Abnormal; Notable for the following: Result Value MCV 80.9 (*) MCH 27.5 (*) Platelet 472 (*) Neutrophil % 79.4 (*) Lymphocytes % 17.3 (*) Monocytes % 2.8 (*) All other components within normal limits COMPREHENSIVE METABOLIC PANEL - Abnormal; Notable for the following: Creatinine 0.5 (*) CO2 13 (*) Glucose 334 (*) Anion Gap 29 (*) BUN/Creatinine Ratio 34 (*) Calculated Osmolality 305 (*) All other components within normal limits URINALYSIS NO MICROSCOPIC NO CULTURE - Abnormal; Notable for the following: Protein UA 20 (*) Glucose UA >1000 (*) Ketones UA >80 (*) Leukocyte Esterase UA Trace (*) All other components within normal limits LIPASE BLOOD - Abnormal; Notable for the following: Lipase 5 (*) All other components within normal limits HYDROXYBUTYRATE BETA - Abnormal; Notable for the following: Beta-hydroxybutyrate 4.55 (*) All other components within normal limits BLOOD GASES JACLYN - Abnormal; Notable for the following: pH Venous 7.23 (*) pCO2 Mixed Venous 28 (*) pO2 Venous 52 (*) HCO3 Mixed Venous 11.3 (*) TCO2 Mixed Venous 12.1 (*) Base Excess Venous -14.7 (*) Oxyhemoglobin Mixed Venous 80.1 (*) All other components within normal limits BASIC METABOLIC PANEL (CALCIUM TOTAL) - Abnormal; Notable for the following: Potassium 5.3 (*) CO2 8 (*) Glucose 311 (*) Anion Gap 30 (*) BUN/Creatinine Ratio 27 (*) Calculated Osmolality 301 (*) All other components within normal limits GLUCOSE - POINT OF CARE - Abnormal; Notable for the following: Glucose 349 (*) All other components within normal limits Narrative: Legal Secretary Receptionist: RICHY MADSEN GLUCOSE - POINT OF CARE - Abnormal; Notable for the following: Glucose 301 (*) All other components within normal limits Narrative: Legal Secretary Receptionist: SHANNAN APONTE GLUCOSE - POINT OF CARE - Abnormal; Notable for the following: Glucose 307 (*) All other components within normal limits Narrative: Legal Secretary Receptionist: Tri Garber GLUCOSE - POINT OF CARE - Abnormal; Notable for the following: Glucose 284 (*) All other components within normal limits Narrative: Legal Secretary Receptionist: DAMIAN WILLAMS BASIC METABOLIC PANEL (CALCIUM TOTAL) HCG URINE QUALITATIVE - POINT OF CARE ED Imaging: XR CHEST 2VW (Results Pending) ED Meds: Medications metoclopramide (REGLAN) injection 10 mg (10 mg Intravenous Not Administered 12/26/17107) insulin regular human (humuLIN R; novoLIN R) 100 Units in 0.9% NaCl 100 mL infusion (5.5 Units/hr Intravenous $ New Bag 12/26/17 023) insulin regular human (humuLIN R; novoLIN R) 100 units in 100 mL bolus from infusion bag (not administered) dextrose IV 25 g (0 g Intravenous Held 12/26/17227) glucagon (GLUCAGEN) injection 1 mg (0 mg Intramuscular Held 12/26/17227) 0.9% NaCl infusion (not administered) ondansetron (ZOFRAN) injection 4 mg (4 mg Intravenous $ Given 12/25/171907) 0.9% NaCl IV Bolus (0 mL Intravenous Stopped 12/25/172047) metoclopramide (REGLAN) injection 10 mg (10 mg Intravenous $ Given 12/25/172024) 0.9% NaCl IV Bolus (0 mL Intravenous Stopped 12/25/172148) 0.9% NaCl IV Bolus (0 mL Intravenous Stopped 12/26/17227) famotidine (PEPCID) injection 20 mg (20 mg Intravenous $ Given 12/26/17 0011) 0.9% NaCl IV Bolus (1,000 mL Intravenous $ New Bag 12/26/17 0121) Medical Decision Making Clinical Diagnosis: 22 y.o. female with nausea and vomiting Differential Diagnosis: DKA vs metabolic vs infectious vs other Plan: 1. Workup: labs as above, IV 2. Treatment: insulin, IVF Consults: none ED Course: 3:01 AM: Patient seen and evaluated, available studies reviewed Pt appears to be in DKA with +ketones in blood. WIll start insulin drip, k containing fluids. Admitto MICU -After discussion with MICU patient will be admitted to their service for further management of care. -I have reviewed the diagnostic findings with the patient and they have had an opportunity to ask me any questions they have about care, diagnosis, and reason for admission. The patient states understanding and agrees to admission. ED Final Diagnosis and Discharge information 1. Type 1 diabetes mellitus with ketoacidosis without coma 2. Chest pain, unspecified type Disposition MICU Scripts Follow-up Dannie Lafleur MD 12/26/2017 3:01 AM * Shirlene Bartlett RN - 12/26/2017 1:26 AM CDT Report given to Dionicio HERNANDEZ. * Shirlene Bartlett, RN - 12/26/2017 12:48 AM CDT Pt transported on stretcher to x-ray with tech. * Mar Ernandez MD - 12/25/2017 11:48 PM CDT Patient seen and examined with Resident. Please see note for further details. I confirm and agree with the history, exam, assessment and plan. In addition I note/revise: Interval history: 22 year old female with a h/o IRDM and gastroparesis Presents with family with c/o malaise, nausea and vomiting that started shortly prior to arrival. States she felt well last evening. Denies fever, chills, diarrhea, vaginal discharge, cough, sob, dysuria. Has mid chest pain but thinks that is from the excessive vomiting. No other c/o. Denies . Similar symptoms in the past with DKA. Last admitted for DKA last month. Does not know what her blood glucose has been running as she did not check it. States compliance with lantus and supposed to use a sliding scale . Seen by triage/SWAT staff, had IVF, anti-emetics and labs sent c/w evidence of DKA Vitals: 12/25/17 1932 12/25/17 2330 BP: (!) 149/104 Pulse: (!) 125 (!) 117 Resp: 19 Temp: 98.9 ??F (37.2 ??C) SpO2: 99% Exam: Awake &Ox3, WD female appears to not to feel well, holding an emesis bag HEENT:PERRL, no scleral icterus, oral mucosa dry, TMs wnl, oropharynx wnl, neck supple CVS:tachycardia, radial, femoral and DP pulses palpable and sym. Lungs:CTAx2 Abd: soft, ND, +epigastric tenderness, no rebound/guarding, no CVA tenderness Ext: FROM, no edema/rash Neuro: no gross focal motor/sensory deficits Assessment/Plan: DM with nausea, vomiting, hyperglycemia with an anion gap, continue IVF, anti-emetics. Start insulin drip and plan ICU admit. Check CXR and VBG. See work up. Monitor patient and glucose. Await bed assignment. See resident's note for detailed ED course. 1. Type 1 diabetes mellitus with ketoacidosis without coma 2. Chest pain, unspecified type * Liliane Brooks RN - 12/25/2017 8:11 PM CDT Labs sent and receiving a liter of fluid, intermittent bouts of nausea and vomiting, w/o room assignment * Liliane Brooks RN - 12/25/2017 8:08 PM CDT Pt is weak, vomiting small amounts of brown/castaneda emesis frequently documented in this encounter Plan of Treatment Not on file documented as of this encounter Procedures Procedure Name Priority Date/Time Associated Diagnosis Comments CARDIAC PROCEDURE ORDER 02/27/20 18 3:31 PM CDT CARDIAC EKG ORDER 01/03/2018 9:3 0 PM CDT GLUCOSE - POINT OF CARE Routine 12/31/19 18 8:17 AM CDT DIFFERENTIAL MANUAL Routine 12/30/2017 5 :45 AM CDT CBC W AUTO DIFFERENTIAL Routine 12/31/19 18 5:45 AM CDT BASIC METABOLIC PANEL (CALCIUM TOTAL) Routine 12/30/2017 5:45 AM CDT GLUCOSE - POINT OF CARE Routine 12/31/19 18 4:04 AM CDT GLUCOSE - POINT OF CARE Routine 12/30/19 18 11:54 PM CDT GLUCOSE - POINT OF CARE Routine 12/30/19 18 8:04 PM CDT GLUCOSE - POINT OF CARE Routine 12/30/19 18 4:53 PM CDT BASIC METABOLIC PANEL (CALCIUM TOTAL) Routine 12/29/2017 2:51 PM CDT GLUCOSE - POINT OF CARE Routine 12/30/19 18 11:59 AM CDT CBC W AUTO DIFFERENTIAL Routine 12/30/19 18 6:42 AM CDT BASIC METABOLIC PANEL (CALCIUM TOTAL) Routine 12/29/2017 6:42 AM CDT PHOSPHORUS BLOOD Routine 12/29/2017 6:42 AM CDT MAGNESIUM BLOOD Routine 12/29/2017 6:42 AM CDT GLUCOSE - POINT OF CARE Routine 12/30/19 18 6:19 AM CDT GLUCOSE - POINT OF CARE Routine 12/30/19 18 1:59 AM CDT GLUCOSE - POINT OF CARE Routine 12/29/19 18 9:55 PM CDT GLUCOSE - POINT OF CARE Routine 12/29/19 18 5:41 PM CDT GLUCOSE - POINT OF CARE Routine 12/29/19 18 4:23 PM CDT GLUCOSE - POINT OF CARE Routine 12/29/19 18 11:54 AM CDT GLUCOSE - POINT OF CARE Routine 12/29/19 18 9:48 AM CDT GLUCOSE - POINT OF CARE Routine 12/29/19 18 8:05 AM CDT GLUCOSE - POINT OF CARE Routine 12/29/19 18 6:31 AM CDT CELIAC DISEASE PROFILE W RFLX Routine 12/28/2017 6:21 AM CDT CBC W AUTO DIFFERENTIAL Routine 12/29/19 18 6:21 AM CDT BASIC METABOLIC PANEL (CALCIUM TOTAL) Routine 12/28/2017 6:21 AM CDT PHOSPHORUS BLOOD Routine 12/28/2017 6:21 AM CDT MAGNESIUM BLOOD Routine 12/28/2017 6:21 AM CDT TSH Add on 12/28/2017 6:21 AM CDT GLUCOSE - POINT OF CARE Routine 12/29/19 1:38 AM CDT GLUCOSE - POINT OF CARE Routine 12/28/19 18 11:34 PM CDT GLUCOSE - POINT OF CARE Routine 12/28/19 9:59 PM CDT GLUCOSE - POINT OF CARE Routine 12/28/19 18 7:54 PM CDT GLUCOSE - POINT OF CARE Routine 12/28/19 6:50 PM CDT BASIC METABOLIC PANEL (CALCIUM TOTAL) Routine 12/27/2017 5:57 PM CDT PHOSPHORUS BLOOD Routine 12/27/2017 5:57 PM CDT MAGNESIUM BLOOD Routine 12/27/2017 5:57 PM CDT GLUCOSE - POINT OF CARE Routine 12/28/19 5:51 PM CDT GLUCOSE - POINT OF CARE Routine 12/28/19 18 5:00 PM CDT GLUCOSE - POINT OF CARE Routine 12/28/19 18 3:48 PM CDT GLUCOSE - POINT OF CARE Routine 12/28/19 18 2:55 PM CDT GLUCOSE - POINT OF CARE Routine 12/28/19 18 1:52 PM CDT BASIC METABOLIC PANEL (CALCIUM TOTAL) Routine 12/27/2017 12:09 PM CDT GLUCOSE - POINT OF CARE Routine 12/28/19 18 11:17 AM CDT PT EVAL AND TREAT Routine 12/27/2017 7:5 5 AM CDT GLUCOSE - POINT OF CARE Routine 12/28/19 18 6:51 AM CDT GLUCOSE - POINT OF CARE Routine 12/28/19 18 5:38 AM CDT GLUCOSE - POINT OF CARE Routine 12/28/19 3:57 AM CDT CBC W AUTO DIFFERENTIAL AM Draw 12/28/19 2:17 AM CDT BASIC METABOLIC PANEL (CALCIUM TOTAL) Routine 12/27/2017 2:17 AM CDT PHOSPHORUS BLOOD Routine 12/27/2017 2:17 AM CDT MAGNESIUM BLOOD Routine 12/27/2017 2:17 AM CDT GLUCOSE - POINT OF CARE Routine 12/28/19 18 1:33 AM CDT GLUCOSE - POINT OF CARE Routine 12/28/19 18 12:34 AM CDT GLUCOSE - POINT OF CARE Routine 12/27/19 18 11:31 PM CDT GLUCOSE - POINT OF CARE Routine 12/27/19 10:13 PM CDT BASIC METABOLIC PANEL (CALCIUM TOTAL) Routine 12/26/2017 10:10 PM CDT GLUCOSE - POINT OF CARE Routine 12/27/19 18 8:27 PM CDT GLUCOSE - POINT OF CARE Routine 12/27/19 18 7:35 PM CDT BASIC METABOLIC PANEL (CALCIUM TOTAL) Routine 12/26/2017 6:05 PM CDT PHOSPHORUS BLOOD Routine 12/26/2017 6:05 PM CDT MAGNESIUM BLOOD Routine 12/26/2017 6:05 PM CDT GLUCOSE - POINT OF CARE Routine 12/27/19 18 6:04 PM CDT GLUCOSE - POINT OF CARE Routine 12/27/19 18 4:58 PM CDT GLUCOSE - POINT OF CARE Routine 12/27/19 3:01 PM CDT GLUCOSE - POINT OF CARE Routine 12/27/19 2:09 PM CDT BASIC METABOLIC PANEL (CALCIUM TOTAL) Routine 12/26/2017 2:06 PM CDT GLUCOSE - POINT OF CARE Routine 12/27/19 1:03 PM CDT GLUCOSE - POINT OF CARE Routine 12/27/19 11:56 AM CDT GLUCOSE - POINT OF CARE Routine 12/27/19 10:51 AM CDT GLUCOSE - POINT OF CARE Routine 12/27/19 9:59 AM CDT GLUCOSE - POINT OF CARE Routine 12/27/19 9:57 AM CDT BASIC METABOLIC PANEL (CALCIUM TOTAL) Routine 12/26/2017 9:55 AM CDT PHOSPHORUS BLOOD Routine 12/26/2017 9:55 AM CDT MAGNESIUM BLOOD Routine 12/26/2017 9:55 AM CDT GLUCOSE - POINT OF CARE Routine 12/27/19 18 8:50 AM CDT GLUCOSE - POINT OF CARE Routine 12/27/19 8:01 AM CDT GLUCOSE - POINT OF CARE Routine 12/27/19 6:41 AM CDT PT-INR [facility] Routine 12/26/2017 6:11 AM CDT CBC W AUTO DIFFERENTIAL Routine 12/27/19 6:11 AM CDT BASIC METABOLIC PANEL (CALCIUM TOTAL) Routine 12/26/2017 6:11 AM CDT LACTIC ACID BLOOD Routine 12/26/2017 6:1 1 AM CDT EKG 12-LEAD STAT 12/26/2017 5:46 AM CDT Type 1 diabetes mellitus with ketoacidosis without coma (HCC) GLUCOSE - POINT OF CARE Routine 12/27/19 18 4:42 AM CDT GLUCOSE - POINT OF CARE Routine 12/27/19 18 3:45 AM CDT GLUCOSE - POINT OF CARE Routine 12/27/19 18 2:17 AM CDT BASIC METABOLIC PANEL (CALCIUM TOTAL) STAT 12/26/2017 2:16 AM CDT PHOSPHORUS BLOOD Routine 12/26/2017 2:16 AM CDT MAGNESIUM BLOOD Routine 12/26/2017 2:16 AM CDT BLOOD GASES JACLYN STAT 12/26/2017 1:24 AM CDT XR CHEST 2VW STAT 12/26/2017 12:53 AM CDT Type 1 diabetes mellitus with ketoacidosis without coma (HCC) Chest pain, unspecified type GLUCOSE - POINT OF CARE Routine 12/27/19 18 12:14 AM CDT GLUCOSE - POINT OF CARE Routine 12/26/19 18 11:06 PM CDT HCG URINE QUALITATIVE - POINT OF CARE STAT 12/25/2017 8:56 PM CDT Type 1 diabetes mellitus with ketoacidosis without coma (HCC) URINALYSIS NO MICROSCOPIC NO CULTURE STAT 12/25/2017 8:55 PM CDT Type 1 diabetes mellitus with ketoacidosis without coma (HCC) HYDROXYBUTYRATE BETA STAT 12/25/2017 7:58 PM CDT Type 1 diabetes mellitus with ketoacidosis without coma (HCC) CBC W AUTO DIFFERENTIAL STAT 12/26/19 18 7:58 PM CDT Type 1 diabetes mellitus with ketoacidosis without coma (HCC) COMPREHENSIVE METABOLIC PANEL STAT 12/25/2017 7:58 PM CDT Type 1 diabetes mellitus with ketoacidosis without coma (HCC) LIPASE BLOOD STAT 12/25/2017 7:58 PM CDT Type 1 diabetes mellitus with ketoacidosis without coma (HCC) GLUCOSE - POINT OF CARE Routine 12/26/19 18 7:28 PM CDT documented in this encounter Results * CARDIAC PROCEDURE ORDER (02/26/2018 3:31 PM CDT) Narrative 02/26/2018 3:31 PM CDT Ordered by an unspecified provider. Scanned Document CARDIAC SERVICES ORD ERABLES * CARDIAC EKG ORDER (01/03/2018 9:30 PM CDT) Narrative 01/03/2018 9:30 PM CDT Ordered by an unspecified provider. Scanned Document CARDIAC SERVICES ORD ERABLES * (ABNORMAL) GLUCOSE - POINT OF CARE (12/30/2017 8:17 AM CDT) Glucose WB/POC 129(H) 70 - 115 mg/dL 12/30/2017 8:18 AM CDT [facility] Specimen Type Venous 12/30/2017 8:18 AM CDT [facility] Blood BLOOD SPECIMEN / Unknown 12/30/2017 8:17 AM CDT 12/30/2017 8:18 AM CDT Narrative [facility] - 12/30/2017 8:18 AM CDT Legal Secretary Receptionist: CHRISTIAN ??TRISTAN Diomedes Etienne MD LAB - POINT OF CARE ORDERABLES [facility] [address] [phone] * (ABNORMAL) DIFFERENTIAL MANUAL (12/30/2017 5:45 AM CDT) WBC (corrected for NRBC) 5.9 10? 3 /uL 12/30/2017 7:29 AM [facility] Total Cell Count 100 12/30/2017 7:29 AM [facility] Neutrophils Absolute Manual 1.36(L) 1.60 - 7.00 10? 3 /uL 12/30/2017 7:29 AM [facility] Comment:(BANDS+SEGS) x WBC = NEUT # (ANC) Lymphocyte Absolute Manual 4.13(H) 0.80 - 2.90 10? 3 /uL 12/30/2017 7:29 AM [facility] Monocytes Absolute Manual 0.41 0.14 - 0.66 10? 3 /uL 12/30/2017 7:29 AM [facility] Neutrophil % Manual 23(L) 30 - 60 % 12/30/2017 7:29 AM [facility] Lymphocyte % Manual 70(H) 20 - 45 % 12/30/2017 7:29 AM [facility] Monocytes % Manual 7 2 - 10 % 12/30/2017 7:29 AM [facility] Platelet Estimate Adequate Adequate 12/30/2017 7:29 AM [facility] Ovalocytes Occasional(A ) None 12/30/2017 7:29 AM [facility] Blood BLOOD SPECIMEN / Unknown Venipuncture / Unknown 12/30/2017 5:45 AM CDT 12/30/2017 5:48 AM CDT Iesha Flowers RIDE ATTENDANT-911 [employer] SERVICES DISPATCHER LAB - HEMATOLOGY ORDERABLES [facility] [address] [phone] * (ABNORMAL) CBC W AUTO DIFFERENTIAL (12/30/2017 5:45 AM CDT) WBC 5.9 3.5 - 10.5 10? 3 /uL 12/30/2017 5:55 AM [facility] RBC 4.05 3.90 - 5.00 10? 6 /uL 12/30/2017 5:55 AM [facility] Hemoglobin 10.8(L) 12.0 - 15.5 g/dL 12/30/2017 5:55 AM [facility] Hematocrit 32.4(L) 35.0 - 45.0 % 12/30/2017 5:55 AM [facility] MCV 80.0(L) 81.0 - 97.0 fL 12/30/2017 5:55 AM [facility] MCH 26.7(L) 28.0 - 34.0 pg 12/30/2017 5:55 AM [facility] MCHC 33.3 32.0 - 36.0 g/dL 12/30/2017 5:55 AM [facility] Platelet Count 332 150 - 400 10? 3 /uL 12/30/2017 5:55 AM [facility] RDW-SD 41.1 36.0 - 50.0 fL 12/30/2017 5:55 AM [facility] RDW-CV 14.1 11.2 - 14.8 % 12/30/2017 5:55 AM [facility] MPV 8.6(L) 9.3 - 12.8 fL 12/30/2017 5:55 AM [facility] Blood BLOOD SPECIMEN / Unknown Venipuncture / Unknown 12/30/2017 5:45 AM CDT 12/30/2017 5:48 AM CDT Iesha Flowers RIDE ATTENDANT-911 EMERGENCY SERVICES DISPATCHER LAB - HEMATOLOGY ORDERABLES [address] [phone] * (ABNORMAL) BASIC METABOLIC PANEL (CALCIUM TOTAL) (12/30/2017 5:45 AM CDT) BUN 5(L) 7 - 26 mg/dL 12/30/2017 6:05 AM [facility] Creatinine 0.4(L) 0.6 - 1.2 mg/dL 12/30/2017 6:05 AM [facility] Sodium 136 136 - 145 mmol/L 12/30/2017 6:05 AM [facility] Comment:Checked Potassium 3.7 3.5 - 4.5 mmol/L 12/30/2017 6:05 AM [facility] Chloride 102 98 - 107 mmol/L 12/30/2017 6:05 AM [facility] CO2 25 22 - 29 mmol/L 12/30/2017 6:05 AM [facility] Glucose 174(H) 70 - 115 mg/dL 12/30/2017 6:05 AM [facility] Calcium 8.4 8.4 - 10.2 mg/dL 12/30/2017 6:05 AM [facility] Anion Gap 13 8 - 18 12/30/2017 6:05 AM [facility] BUN/Creatinine Ratio 13 7 - 23 12/30/2017 6:05 AM [facility] Osmolality Calculated 283 270 - 300 mOsm/kg 12/30/2017 6:05 AM [facility] eGFR >60 >60 mL/min/1.7 3 m2 12/30/2017 6:05 AM [facility] Blood BLOOD SPECIMEN / Unknown Venipuncture / Unknown 12/30/2017 5:45 AM CDT 12/30/2017 5:48 AM T Cl Del Valle DO LAB - CHEMISTRY OR DERABLES Performing Organization Address City/State/[facility] Co de Phone Number [address] [phone] * (ABNORMAL) GLUCOSE - POINT OF CARE (12/30/2017 4:04 AM CDT) Glucose WB/POC 169(H) 70 - 115 mg/dL 12/30/2017 4:06 AM [facility] Specimen Type Arterial/C apillary 12/30/2017 4:06 AM [facility] Blood BLOOD SPECIMEN / Unknown 12/30/2017 4:04 AM CDT 12/30/2017 4:05 AM CDT Narrative [facility] - 12/30/2017 4:06 AM CDT Legal Secretary Receptionist: KIM OJEDA Diomedes Etienne MD LAB - POINT [place] [address], [facility] [phone] * (ABNORMAL) GLUCOSE - POINT OF CARE (12/29/2017 11:54 PM CDT) Glucose WB/POC 156(H) 70 - 115 mg/dL 12/29/2017 11:55 PM CDT [facility] Specimen Type Arterial/C apillary 12/29/2017 11:55 PM CDT [facility] Blood BLOOD SPECIMEN / Unknown 12/29/2017 11:54 PM CDT 12/29/2017 11:55 PM CDT Narrative [facility] - 12/29/2017 11:55 PM CDT Legal Secretary Receptionist: KIM OJEDA Diomedes Etienne MD LAB - POINT OF CARE ORDERABLES Performing Organization Address [facility]/ZIP [place] [address], [facility] [phone] * (ABNORMAL) GLUCOSE - POINT OF CARE (12/29/2017 8:04 PM CDT) Glucose WB/POC 193(H) 70 - 115 mg/dL 12/29/2017 8:05 PM CDT [facility] Specimen Type Arterial/C apillary 12/29/2017 8:05 PM CDT [facility] Blood BLOOD SPECIMEN / Unknown 12/29/2017 8:04 PM CDT 12/29/2017 8:05 PM CDT Narrative [facility] - 12/29/2017 8:05 PM CDT Legal Secretary Receptionist: KIM OJEDA Diomedes Etienne MD LAB - POINT [place] [address], [facility] [phone] * (ABNORMAL) GLUCOSE - POINT OF CARE (12/29/2017 4:53 PM CDT) Pathologist [facility] Glucose WB/POC 144(H) 70 - 115 mg/dL 12/29/2017 4:58 PM [facility] Specimen Type Arterial/C apillary 12/29/2017 4:58 PM [facility] Blood BLOOD SPECIMEN / Unknown 12/29/2017 4:53 PM CDT 12/29/2017 4:58 PM CDT [facility] - 12/29/2017 4:58 PM CDT Legal Secretary Receptionist: TRU ??BOBBI Diomedes Etienne MD LAB - POINT OF CARE ORDERABLES [facility] [address] [phone] * (ABNORMAL) BASIC METABOLIC PANEL (CALCIUM TOTAL) (12/29/2017 2:51 PM CDT) [facility] BUN 9 7 - 26 mg/dL 12/29/2017 3:22 PM [facility] Creatinine 0.4(L) 0.6 - 1.2 mg/dL 12/29/2017 3:22 PM [facility] Sodium 129(L) 136 - 145 mmol/L 12/29/2017 3:22 PM [facility] Potassium 3.9 3.5 - 4.5 mmol/L 12/29/2017 3:22 PM [facility] Chloride 96(L) 98 - 107 mmol/L 12/29/2017 3:22 PM [facility] CO2 20(L) 22 - 29 mmol/L 12/29/2017 3:22 PM [facility] Glucose 198(H) 70 - 115 mg/dL 12/29/2017 3:22 PM [facility] Calcium 8.7 8.4 - 10.2 mg/dL 12/29/2017 3:22 PM [facility] Anion Gap 17 8 - 18 12/29/2017 3:22 PM [facility] BUN/Creatinine Ratio 23 7 - 23 12/29/2017 3:22 PM [facility] Osmolality Calculated 272 270 - 300 mOsm/kg 12/29/2017 3:22 PM CDT [facility] eGFR >60 >60 mL/min/1.7 3 m2 12/29/2017 3:22 PM CDT [facility] Blood BLOOD SPECIMEN / Unknown Venipuncture / Unknown 12/29/2017 2:51 PM CDT 12/29/2017 2:59 PM CDT Peter Bryan MD LAB - CHEMISTRY O RDERABLES Performing Organization Address [facility]/ZIP Co de Phone Number [address] [phone] * (ABNORMAL) GLUCOSE - POINT OF CARE (12/29/2017 11:59 AM CDT) Pathologist [facility] Glucose WB/POC 154(H) 70 - 115 mg/dL 12/29/2017 12:07 PM T [facility] Specimen Type Arterial/C apillary 12/29/2017 12:07 PM CDT [facility] Blood BLOOD SPECIMEN / Unknown 12/29/2017 11:59 AM CDT 12/29/2017 12:07 PM CDT Narrative [facility] - 12/29/2017 12:07 PM CDT Legal Secretary Receptionist: Nils ??Yulissa Diomedes Etienne MD LAB - POINT OF CARE ORDERABLES Performing Organization Address [facility] Co de Phone Number [address] [phone] * (ABNORMAL) CBC W AUTO DIFFERENTIAL (12/29/2017 6:42 AM CDT) WBC 9.1 3.5 - 10.5 10? 3 /uL 12/29/2017 6:58 AM CDT [facility] RBC 4.92 3.90 - 5.00 10? 6 /uL 12/29/2017 6:58 AM T [facility] Hemoglobin 13.3 12.0 - 15.5 g/dL 12/29/2017 6:58 AM T [facility] Comment:Confirmed by repeat analysis. Hematocrit 40.1 35.0 - 45.0 % 12/29/2017 6:58 AM [facility] MCV 81.5 81.0 - 97.0 fL 12/29/2017 6:58 AM [facility] MCH 27.0(L) 28.0 - 34.0 pg 12/29/2017 6:58 AM [facility] MCHC 33.2 32.0 - 36.0 g/dL 12/29/2017 6:58 AM [facility] Platelet Count 432(H) 150 - 400 10? 3 /uL 12/29/2017 6:58 AM [facility] RDW-SD 42.2 36.0 - 50.0 fL 12/29/2017 6:58 AM [facility] RDW-CV 14.2 11.2 - 14.8 % 12/29/2017 6:58 AM [facility] MPV 9.1(L) 9.3 - 12.8 fL 12/29/2017 6:58 AM [facility] Neutrophils % 59.4 35.0 - 70.0 % 12/29/2017 6:58 AM [facility] Lymphocytes % 31.3 19.7 - 55.1 % 12/29/2017 6:58 AM [facility] Monocytes % 9.1 3.0 - 15.0 % 12/29/2017 6:58 AM [facility] Eosinophils % 0.1 0.0 - 6.0 % 12/29/2017 6:58 AM [facility] Basophil % 0.1 0.0 - 1.5 % 12/29/2017 6:58 AM [facility] Neutrophils Absolute 5.4 1.6 - 7.0 10? 3 /uL 12/29/2017 6:58 AM [facility] Lymphocyte Absolute 2.9 0.8 - 2.9 10? 3 /uL 12/29/2017 6:58 AM [facility] Monocytes Absolute 0.83(H) 0.14 - 0.66 10? 3 /uL 12/29/2017 6:58 AM [facility] Eosinophils Absolute 0.01 0.00 - 0.22 10? 3 /uL 12/29/2017 6:58 AM [facility] Basophils Absolute 0.01 0.00 - 0.06 10? 3 /uL 12/29/2017 6:58 AM [facility] Immature Granulocytes % 0.4 0.0 - 1.0 % 12/29/2017 6:58 AM [facility] Blood BLOOD SPECIMEN / Unknown Venipuncture / Unknown 12/29/2017 6:42 AM CDT 12/29/2017 6:47 AM CDT Iesha Flowers RIDE ATTENDANT-911 EMERGENCY SERVICES DISPATCHER LAB - HEMATOLOGY ORDERABLES [facility] [address] [place] [address] * (ABNORMAL) BASIC METABOLIC PANEL (CALCIUM TOTAL) (12/29/2017 6:42 AM CDT) BUN 8 7 - 26 mg/dL 12/29/2017 7:09 AM [facility] Creatinine 0.5(L) 0.6 - 1.2 mg/dL 12/29/2017 7:09 AM [facility] Sodium 132(L) 136 - 145 mmol/L 12/29/2017 7:09 AM [facility] Potassium 4.4 3.5 - 4.5 mmol/L 12/29/2017 7:09 AM [facility] Chloride 95(L) 98 - 107 mmol/L 12/29/2017 7:09 AM [facility] CO2 21(L) 22 - 29 mmol/L 12/29/2017 7:09 AM [facility] Glucose 252(H) 70 - 115 mg/dL 12/29/2017 7:09 AM [facility] Calcium 9.4 8.4 - 10.2 mg/dL 12/29/2017 7:09 AM [facility] Anion Gap 20(H) 8 - 18 12/29/2017 7:09 AM [facility] BUN/Creatinine Ratio 16 7 - 23 12/29/2017 7:09 AM [facility] Osmolality Calculated 281 270 - 300 mOsm/kg 12/29/2017 7:09 AM [facility] eGFR >60 >60 mL/min/1.7 3 m2 12/29/2017 7:09 AM [facility] Blood BLOOD SPECIMEN / Unknown Venipuncture / Unknown 12/29/2017 6:42 AM CDT 12/29/2017 6:47 AM CDT Cl Del Valle DO LAB - CHEMISTRY OR DERABLES Performing Organization Address [facility]/ZIP Co de Phone Number [address] [phone] * PHOSPHORUS BLOOD (12/29/2017 6:42 AM CDT) Phosphorus 3.5 2.3 - 4.7 mg/dL 12/29/2017 7:05 AM CDT [facility] Blood BLOOD SPECIMEN / Unknown Venipuncture / Unknown 12/29/2017 6:42 AM CDT 12/29/2017 6:47 AM CDT Peter Bryan MD LAB - CHEMISTRY O RDERABLES Performing Organization Address [facility]/ZIP Co de Phone Number [address] [phone] * MAGNESIUM BLOOD (12/29/2017 6:42 AM CDT) Magnesium 1.8 1.6 - 2.6 mg/dL 12/29/2017 7:05 AM CDT [facility] Blood BLOOD SPECIMEN / Unknown Venipuncture / Unknown 12/29/2017 6:42 AM CDT 12/29/2017 6:47 AM CDT Peter Bryan MD LAB - CHEMISTRY O RDERABLES Performing Organization Address City/[facility]/ZIP Co de Phone Number [address] [phone] * (ABNORMAL) GLUCOSE - POINT OF CARE (12/29/2017 6:19 AM CDT) Glucose WB/POC 211(H) 70 - 115 mg/dL 12/29/2017 9:15 AM CDT [facility] Specimen Type Arterial/C apillary 12/29/2017 9:15 AM CDT [facility] Blood BLOOD SPECIMEN / Unknown 12/29/2017 6:19 AM CDT 12/29/2017 9:15 AM CDT [facility] - 12/29/2017 9:15 AM CDT Legal Secretary Receptionist: PACINO ?STACI Diomedes Etienne MD LAB - POINT OF CARE ORDERABLES Performing Organization Address City/[facility]/ZIP Co de Phone Number [address] [phone] * (ABNORMAL) GLUCOSE - POINT OF CARE (12/29/2017 1:59 AM CDT) Glucose WB/POC 216(H) 70 - 115 mg/dL 12/29/2017 2:04 AM CDT [facility] Specimen Type Arterial/C apillary 12/29/2017 2:04 AM CDT [facility] Blood BLOOD SPECIMEN / Unknown 12/29/2017 1:59 AM CDT 12/29/2017 2:04 AM CDT [facility] - 12/29/2017 2:04 AM CDT Legal Secretary Receptionist: PACINO ?STACI Diomedes Etienne MD LAB - POINT OF CARE ORDERABLES Performing Organization Address [facility] Co de Phone Number [address] [phone] * (ABNORMAL) GLUCOSE - POINT OF CARE (12/28/2017 9:55 PM CDT) Glucose WB/POC 180(H) 70 - 115 mg/dL 12/28/2017 9:57 PM CDT [facility] Specimen Type Arterial/C apillary 12/28/2017 9:57 PM CDT [facility] Blood BLOOD SPECIMEN / Unknown 12/28/2017 9:55 PM CDT 12/28/2017 9:56 PM CDT [facility] - 12/28/2017 9:57 PM CDT Legal Secretary Receptionist: PACINO ?STACI Diomedes Etienne MD LAB - POINT [place] [address], [facility] [phone] * (ABNORMAL) GLUCOSE - POINT OF CARE (12/28/2017 5:41 PM CDT) Glucose WB/POC 174(H) 70 - 115 mg/dL 12/28/2017 5:42 PM CDT [facility] Specimen Type Arterial/C apillary 12/28/2017 5:42 PM CDT [facility] Blood BLOOD SPECIMEN / Unknown 12/28/2017 5:41 PM CDT 12/28/2017 5:42 PM CDT Narrative [facility] - 12/28/2017 5:42 PM CDT Legal Secretary Receptionist: DREAD PARISH Diomedes Etienne MD LAB - POINT OF CARE ORDERABLES Performing Organization Address [facility]/[place] [address], [facility] [phone] * (ABNORMAL) GLUCOSE - POINT OF CARE (12/28/2017 4:23 PM CDT) Glucose WB/POC 171(H) 70 - 115 mg/dL 12/28/2017 4:24 PM CDT [facility] Specimen Type Arterial/C apillary 12/28/2017 4:24 PM CDT [facility] Blood BLOOD SPECIMEN / Unknown 12/28/2017 4:23 PM CDT 12/28/2017 4:24 PM CDT Narrative [facility] - 12/28/2017 4:24 PM CDT Legal Secretary Receptionist: DREAD [place] Diomedes Etienne MD LAB - POINT OF CARE ORDERABLES Performing Organization Address City/[facility]/[place] [address], [facility] [phone] * (ABNORMAL) GLUCOSE - POINT OF CARE (12/28/2017 11:54 AM CDT) Glucose WB/POC 139(H) 70 - 115 mg/dL 12/28/2017 11:55 AM CDT [facility] Specimen Type Arterial/C apillary 12/28/2017 11:55 AM CDT [facility] Blood BLOOD SPECIMEN / Unknown 12/28/2017 11:54 AM CDT 12/28/2017 11:55 AM CDT [facility] - 12/28/2017 11:55 AM CDT Legal Secretary Receptionist: TIMOTHY SORIANO Diomedes Etienne MD LAB - POINT OF CARE ORDERABLES [address] [phone] * (ABNORMAL) GLUCOSE - POINT OF CARE (12/28/2017 9:48 AM CDT) Glucose WB/POC 190(H) 70 - 115 mg/dL 12/28/2017 9:49 AM CDT [facility] Specimen Type Arterial/C apillary 12/28/2017 9:49 AM CDT [facility] Blood BLOOD SPECIMEN / Unknown 12/28/2017 9:48 AM CDT 12/28/2017 9:49 AM CDT [facility] - 12/28/2017 9:49 AM CDT Legal Secretary Receptionist: DREAD [place] Diomedes Etienne MD LAB - POINT OF CARE ORDERABLES Performing Organization Address [facility]/ZIP Co de Phone Number [address] [phone] * (ABNORMAL) GLUCOSE - POINT OF CARE (12/28/2017 8:05 AM CDT) Glucose WB/POC 121(H) 70 - 115 mg/dL 12/28/2017 8:06 AM CDT [facility] Specimen Type Arterial/C apillary 12/28/2017 8:06 AM CDT [facility] Blood BLOOD SPECIMEN / Unknown 12/28/2017 8:05 AM CDT 12/28/2017 8:06 AM CDT [facility] - 12/28/2017 8:06 AM CDT Legal Secretary Receptionist: DREAD ??LAURA Diomedes Etienne MD LAB - POINT OF CARE ORDERABLES Performing Organization Address [facility]/ZIP Co de Phone Number [address] [phone] * GLUCOSE - POINT OF CARE (12/28/2017 6:31 AM CDT) Pathologist [facility] Glucose WB/POC 93 70 - 115 mg/dL 12/28/2017 6:32 AM T [facility] Specimen Type Arterial/C apillary 12/28/2017 6:32 AM T [facility] Blood BLOOD SPECIMEN / Unknown 12/28/2017 6:31 AM CDT 12/28/2017 6:32 AM CDT Narrative [facility] - 12/28/2017 6:32 AM CDT Legal Secretary Receptionist: REINA ??МАРИЯ Diomedes Etienne MD LAB - POINT OF CARE ORDERABLES Performing Organization Address [facility] Co de Phone Number [address] [phone] * (ABNORMAL) CBC W AUTO DIFFERENTIAL (12/28/2017 6:21 AM CDT) Pathologist [facility] WBC 6.6 3.5 - 10.5 10? 3 /uL 12/28/2017 6:31 AM [facility] RBC 3.93 3.90 - 5.00 10? 6 /uL 12/28/2017 6:31 AM [facility] Hemoglobin 10.6(L) 12.0 - 15.5 g/dL 12/28/2017 6:31 AM [facility] Hematocrit 32.3(L) 35.0 - 45.0 % 12/28/2017 6:31 AM [facility] MCV 82.2 81.0 - 97.0 fL 12/28/2017 6:31 AM [facility] MCH 27.0(L) 28.0 - 34.0 pg 12/28/2017 6:31 AM [facility] MCHC 32.8 32.0 - 36.0 g/dL 12/28/2017 6:31 AM [facility] Platelet Count 358 150 - 400 10? 3 /uL 12/28/2017 6:31 AM [facility] RDW-SD 43.8 36.0 - 50.0 fL 12/28/2017 6:31 AM [facility] RDW-CV 14.4 11.2 - 14.8 % 12/28/2017 6:31 AM [facility] MPV 8.8(L) 9.3 - 12.8 fL 12/28/2017 6:31 AM [facility] Neutrophils % 36.0 35.0 - 70.0 % 12/28/2017 6:31 AM [facility] Lymphocytes % 54.2 19.7 - 55.1 % 12/28/2017 6:31 AM [facility] Monocytes % 9.3 3.0 - 15.0 % 12/28/2017 6:31 AM [facility] Eosinophils % 0.3 0.0 - 6.0 % 12/28/2017 6:31 AM [facility] Basophil % 0.2 0.0 - 1.5 % 12/28/2017 6:31 AM [facility] Neutrophils Absolute 2.4 1.6 - 7.0 10? 3 /uL 12/28/2017 6:31 AM [facility] Lymphocyte Absolute 3.6(H) 0.8 - 2.9 10? 3 /uL 12/28/2017 6:31 AM [facility] Monocytes Absolute 0.61 0.14 - 0.66 10? 3 /uL 12/28/2017 6:31 AM [facility] Eosinophils Absolute 0.02 0.00 - 0.22 10? 3 /uL 12/28/2017 6:31 AM [facility] Basophils Absolute 0.01 0.00 - 0.06 10? 3 /uL 12/28/2017 6:31 AM [facility] Immature Granulocytes % 0.3 0.0 - 1.0 % 12/28/2017 6:31 AM [facility] Blood BLOOD SPECIMEN / Unknown Venipuncture / Unknown 12/28/2017 6:21 AM CDT 12/28/2017 6:27 AM CDT Iesha Flowers RIDE ATTENDANT-911 EMERGENCY SERVICES DISPATCHER LAB - HEMATOLOGY ORDERABLES [address] [phone] * (ABNORMAL) BASIC METABOLIC PANEL (CALCIUM TOTAL) (12/28/2017 6:21 AM CDT) BUN 4(L) 7 - 26 mg/dL 12/28/2017 6:48 AM [facility] Creatinine 0.4(L) 0.6 - 1.2 mg/dL 12/28/2017 6:48 AM [facility] Sodium 138 136 - 145 mmol/L 12/28/2017 6:48 AM [facility] Potassium 3.2(L) 3.5 - 4.5 mmol/L 12/28/2017 6:48 AM [facility] Chloride 107 98 - 107 mmol/L 12/28/2017 6:48 AM [facility] CO2 27 22 - 29 mmol/L 12/28/2017 6:48 AM [facility] Glucose 107 70 - 115 mg/dL 12/28/2017 6:48 AM [facility] Calcium 8.2(L) 8.4 - 10.2 mg/dL 12/28/2017 6:48 AM [facility] Anion Gap 7(L) 8 - 18 12/28/2017 6:48 AM [facility] BUN/Creatinine Ratio 10 7 - 23 12/28/2017 6:48 AM [facility] Osmolality Calculated 283 270 - 300 mOsm/kg 12/28/2017 6:48 AM [facility] eGFR >60 >60 mL/min/1.7 3 m2 12/28/2017 6:48 AM [facility] Blood BLOOD SPECIMEN / Unknown Venipuncture / Unknown 12/28/2017 6:21 AM CDT 12/28/2017 6:27 AM CDT Cl Del Valle DO LAB - CHEMISTRY OR DERABLES [address] [phone] * CELIAC DISEASE PROFILE W RFLX (12/28/2017 6:21 AM CDT) [facility] Endomysial Antibody IgA Negative Negative 12/29/2017 4:24 PM CDT [facility] ([facility]) TTG Antibody IgA <2 0 - 3 U/mL 12/30/19 18 4:24 PM [facility]T [facility] Comment: ?Negative ?0 - ??3 ?Weak Positive ?? 4 - 10 ?Positive ? >10 Tissue Transglutaminase (tTG) has been identified as the endomysial antigen. ??Studies have demonstr- ated that endomysial IgA antibodies have over 99% specificity for gluten sensitive enteropathy. IgA Quantitative 147 87 - 352 mg/dL 12/29/2017 4:24 PM CDT [facility] ([facility]) Blood BLOOD SPECIMEN / Unknown Venipuncture / Unknown 12/28/2017 6:21 AM CDT 12/28/2017 6:27 AM CDT Narrative [facility] ([facility]) - 12/29/2017 4:24 PM CDT Performed at: ??01 - [facility] [address], [place] ??[id number] Aligner: Gregorio Ortega PhD, Phone: ??[phone] Cl Del Valle DO LAB - CHEMISTRY OR DERABLES [facility] ([facility]) [address] [place] [address], [facility] * TSH (12/28/2017 6:21 AM CDT) TSH 1.573 0.350 - 4.940 uIU/mL 12/28/2017 7:07 AM CDT [facility] Blood BLOOD SPECIMEN / Unknown Venipuncture / Unknown 12/28/2017 6:21 AM CDT 12/28/2017 6:26 AM CDT Cl Del Valle DO LAB - CHEMISTRY OR DERABLES Performing Organization Address City/[facility]/ZIP Co de Phone Number [address] [phone] * PHOSPHORUS BLOOD (12/28/2017 6:21 AM CDT) Phosphorus 3.5 2.3 - 4.7 mg/dL 12/28/2017 6:48 AM CDT [facility] Blood BLOOD SPECIMEN / Unknown Venipuncture / Unknown 12/28/2017 6:21 AM CDT 12/28/2017 6:27 AM CDT Peter Bryan MD LAB - CHEMISTRY O RDERABLES Performing Organization Address [facility] Co de Phone Number [address] [phone] * MAGNESIUM BLOOD (12/28/2017 6:21 AM CDT) Magnesium 1.8 1.6 - 2.6 mg/dL 12/28/2017 6:47 AM CDT [facility] Blood BLOOD SPECIMEN / Unknown Venipuncture / Unknown 12/28/2017 6:21 AM CDT 12/28/2017 6:27 AM CDT Peter Bryan MD LAB - CHEMISTRY O RDERABLES Performing Organization Address [facility]/ZIP Co de Phone Number [address] [phone] * (ABNORMAL) GLUCOSE - POINT OF CARE (12/28/2017 1:38 AM CDT) Glucose WB/POC 165(H) 70 - 115 mg/dL 12/28/2017 3:33 AM CDT [facility] Specimen Type Arterial/C apillary 12/28/2017 3:33 AM CDT [facility] Blood BLOOD SPECIMEN / Unknown 12/28/2017 1:38 AM CDT 12/28/2017 3:33 AM CDT [facility] - 12/28/2017 3:33 AM CDT Legal Secretary Receptionist: LUIGI ?MARCEL Diomedes Etienne MD LAB - POINT OF CARE ORDERABLES Performing Organization Address [facility]/ZIP Co de Phone Number [address] [phone] * (ABNORMAL) GLUCOSE - POINT OF CARE (12/27/2017 11:34 PM CDT) Glucose WB/POC 173(H) 70 - 115 mg/dL 12/27/2017 11:35 PM CDT [facility] Specimen Type Arterial/C apillary 12/27/2017 11:35 PM CDT [facility] Blood BLOOD SPECIMEN / Unknown 12/27/2017 11:34 PM CDT 12/27/2017 11:35 PM CDT [facility] - 12/27/2017 11:35 PM CDT Legal Secretary Receptionist: REINA ?JANY Diomedes Etienne MD LAB - POINT OF CARE ORDERABLES Performing Organization Address [facility] Co de Phone Number [address] [phone] * (ABNORMAL) GLUCOSE - POINT OF CARE (12/27/2017 9:59 PM CDT) Glucose WB/POC 202(H) 70 - 115 mg/dL 12/27/2017 10:00 PM CDT [facility] Specimen Type Arterial/C apillary 12/27/2017 10:00 PM CDT [facility] Blood BLOOD SPECIMEN / Unknown 12/27/2017 9:59 PM CDT 12/27/2017 9:59 PM CDT Narrative [facility] - 12/27/2017 10:00 PM CDT Legal Secretary Receptionist: REINA MELENDEZ Diomedes Etienne MD LAB - POINT OF CARE ORDERABLES Performing Organization Address City/[facility]/[place] [address], [facility] [phone] * (ABNORMAL) GLUCOSE - POINT OF CARE (12/27/2017 7:54 PM CDT) Glucose WB/POC 154(H) 70 - 115 mg/dL 12/27/2017 8:32 PM CDT [facility] Specimen Type Arterial/C apillary 12/27/2017 8:32 PM CDT [facility] Blood BLOOD SPECIMEN / Unknown 12/27/2017 7:54 PM CDT 12/27/2017 8:32 PM CDT [facility] - 12/27/2017 8:32 PM CDT Legal Secretary Receptionist: REINA ??МАРИЯ Diomedes Etienne MD LAB - POINT OF CARE ORDERABLES Performing Organization Address [facility]/ZIP Co de Phone Number [address] [phone] * (ABNORMAL) GLUCOSE - POINT OF CARE (12/27/2017 6:50 PM CDT) Glucose WB/POC 166(H) 70 - 115 mg/dL 12/27/2017 6:50 PM CDT [facility] Specimen Type Arterial/C apillary 12/27/2017 6:50 PM CDT [facility] Blood BLOOD SPECIMEN / Unknown 12/27/2017 6:50 PM CDT 12/27/2017 6:50 PM CDT [facility] - 12/27/2017 6:50 PM CDT Legal Secretary Receptionist: DREAD PARISH Diomedes Etienne MD LAB - POINT OF CARE ORDERABLES Performing Organization Address City/[facility]/[place]IP [place] [address], [facility] [phone] * (ABNORMAL) BASIC METABOLIC PANEL (CALCIUM TOTAL) (12/27/2017 5:57 PM CDT) BUN 5(L) 7 - 26 mg/dL 12/27/2017 6:27 PM [facility] Creatinine 0.5(L) 0.6 - 1.2 mg/dL 12/27/2017 6:27 PM [facility] Sodium 135(L) 136 - 145 mmol/L 12/27/2017 6:27 PM [facility] Potassium 3.7 3.5 - 4.5 mmol/L 12/27/2017 6:27 PM [facility] Chloride 105 98 - 107 mmol/L 12/27/2017 6:27 PM [facility] CO2 20(L) 22 - 29 mmol/L 12/27/2017 6:27 PM [facility] Glucose 161(H) 70 - 115 mg/dL 12/27/2017 6:27 PM [facility] Calcium 8.4 8.4 - 10.2 mg/dL 12/27/2017 6:27 PM [facility] Anion Gap 14 8 - 18 12/27/2017 6:27 PM [facility] BUN/Creatinine Ratio 10 7 - 23 12/27/2017 6:27 PM [facility] Osmolality Calculated 281 270 - 300 mOsm/kg 12/27/2017 6:27 PM [facility] eGFR >60 >60 mL/min/1.7 3 m2 12/27/2017 6:27 PM [facility] Blood BLOOD SPECIMEN / Unknown Venipuncture / Unknown 12/27/2017 5:57 PM CDT 12/27/2017 6:00 PM T Peter Bryan MD LAB - CHEMISTRY O RDERABLES [address] [phone] * (ABNORMAL) PHOSPHORUS BLOOD (12/27/2017 5:57 PM CDT) Phosphorus 2.0(L) 2.3 - 4.7 mg/dL 12/27/2017 6:27 PM [facility] Blood BLOOD SPECIMEN / Unknown Venipuncture / Unknown 12/27/2017 5:57 PM CDT 12/27/2017 6:00 PM CDT Peter Bryan MD LAB - CHEMISTRY O EVELIA [address] [phone] * MAGNESIUM BLOOD (12/27/2017 5:57 PM CDT) Magnesium 1.8 1.6 - 2.6 mg/dL 12/27/2017 6:27 PM CDT [facility] Blood BLOOD SPECIMEN / Unknown Venipuncture / Unknown 12/27/2017 5:57 PM CDT 12/27/2017 6:00 PM CDT Peter Bryan MD LAB - CHEMISTRY O RDERAETTA Performing Organization Address [facility]/ZIP Co de Phone Number [address] [phone] * (ABNORMAL) GLUCOSE - POINT OF CARE (12/27/2017 5:51 PM CDT) Glucose WB/POC 152(H) 70 - 115 mg/dL 12/27/2017 5:52 PM CDT [facility] Specimen Type Arterial/C apillary 12/27/2017 5:52 PM CDT [facility] Blood BLOOD SPECIMEN / Unknown 12/27/2017 5:51 PM CDT 12/27/2017 5:52 PM CDT Narrative [facility] - 12/27/2017 5:52 PM CDT Legal Secretary Receptionist: DREAD ??LAURA Diomedes Etienne MD LAB - POINT OF CARE ORDERABLES Performing Organization Address [facility]/ZIP Co de Phone Number [address] [phone] * (ABNORMAL) GLUCOSE - POINT OF CARE (12/27/2017 5:00 PM CDT) Glucose WB/POC 161(H) 70 - 115 mg/dL 12/27/2017 5:00 PM CDT [facility] Specimen Type Arterial/C apillary 12/27/2017 5:00 PM CDT [facility] Blood BLOOD SPECIMEN / Unknown 12/27/2017 5:00 PM CDT 12/27/2017 5:00 PM CDT [facility] - 12/27/2017 5:00 PM CDT Legal Secretary Receptionist: KYLIE RAMOS Diomedes Etienne MD LAB - POINT OF CARE ORDERABLES [address] [phone] * (ABNORMAL) GLUCOSE - POINT OF CARE (12/27/2017 3:48 PM CDT) Glucose WB/POC 164(H) 70 - 115 mg/dL 12/27/2017 3:49 PM CDT [facility] Specimen Type Arterial/C apillary 12/27/2017 3:49 PM CDT [facility] Blood BLOOD SPECIMEN / Unknown 12/27/2017 3:48 PM CDT 12/27/2017 3:49 PM CDT [facility] - 12/27/2017 3:49 PM CDT Legal Secretary Receptionist: D[place] Diomedes Etienne MD LAB - POINT OF CARE ORDERABLES Performing Organization Address City/[facility]/ZIP Co de Phone Number [address] [phone] * (ABNORMAL) GLUCOSE - POINT OF CARE (12/27/2017 2:55 PM CDT) Glucose WB/POC 169(H) 70 - 115 mg/dL 12/27/2017 2:56 PM CDT [facility] Specimen Type Arterial/C apillary 12/27/2017 2:56 PM CDT [facility] Blood BLOOD SPECIMEN / Unknown 12/27/2017 2:55 PM CDT 12/27/2017 2:56 PM CDT [facility] - 12/27/2017 2:56 PM CDT Legal Secretary Receptionist: [place] Diomedes Etienne MD LAB - POINT OF CARE ORDERABLES Performing Organization Address [facility]/ZIP Co de Phone Number [address] [phone] * (ABNORMAL) GLUCOSE - POINT OF CARE (12/27/2017 1:52 PM CDT) Pathologist [facility] Glucose WB/POC 164(H) 70 - 115 mg/dL 12/27/2017 1:53 PM T [facility] Specimen Type Arterial/C apillary 12/27/2017 1:53 PM T [facility] Blood BLOOD SPECIMEN / Unknown 12/27/2017 1:52 PM CDT 12/27/2017 1:53 PM CDT Narrative [facility] - 12/27/2017 1:53 PM CDT Legal Secretary Receptionist: [place] Diomedes Etienne MD LAB - POINT OF CARE ORDERABLES Performing Organization Address [facility] Co de Phone Number [address] [phone] * (ABNORMAL) BASIC METABOLIC PANEL (CALCIUM TOTAL) (12/27/2017 12:09 PM CDT) Pathologist [facility] BUN 5(L) 7 - 26 mg/dL 12/27/2017 12:57 PM [facility] Creatinine 0.4(L) 0.6 - 1.2 mg/dL 12/27/2017 12:57 PM [facility] Sodium 133(L) 136 - 145 mmol/L 12/27/2017 12:57 PM [facility] Potassium 4.3 3.5 - 4.5 mmol/L 12/27/2017 12:57 PM [facility] Chloride 103 98 - 107 mmol/L 12/27/2017 12:57 PM [facility] CO2 15(L) 22 - 29 mmol/L 12/27/2017 12:57 PM [facility] Glucose 261(H) 70 - 115 mg/dL 12/27/2017 12:57 PM CDT [facility] Calcium 8.5 8.4 - 10.2 mg/dL 12/27/2017 12:57 PM [facility] Anion Gap 19(H) 8 - 18 12/27/2017 12:57 PM [facility] BUN/Creatinine Ratio 13 7 - 23 12/27/2017 12:57 PM [facility] Osmolality Calculated 282 270 - 300 mOsm/kg 12/27/2017 12:57 PM [facility] eGFR >60 >60 mL/min/1.7 3 m2 12/27/2017 12:57 PM [facility] Blood BLOOD SPECIMEN / Unknown Venipuncture / Unknown 12/27/2017 12:09 PM CDT 12/27/2017 12:17 PM CDT Peter Bryan MD LAB - CHEMISTRY O RDERABLES Performing Organization Address City/[facility]/ZIP Co de Phone Number [address] [phone] * (ABNORMAL) GLUCOSE - POINT OF CARE (12/27/2017 11:17 AM CDT) Glucose WB/POC 291(H) 70 - 115 mg/dL 12/27/2017 11:18 AM [facility] Specimen Type Arterial/C apillary 12/27/2017 11:18 AM T [facility] Blood BLOOD SPECIMEN / Unknown 12/27/2017 11:17 AM CDT 12/27/2017 11:18 AM CDT Narrative [facility] - 12/27/2017 11:18 AM CDT Legal Secretary Receptionist: DREAD ??LAURA Diomedes Etienne MD LAB - POINT OF CARE ORDERABLES [address] [phone] * (ABNORMAL) GLUCOSE - POINT OF CARE (12/27/2017 6:51 AM CDT) Glucose WB/POC 192(H) 70 - 115 mg/dL 12/27/2017 6:56 AM CDT [facility] Specimen Type Arterial/C apillary 12/27/2017 6:56 AM CDT [facility] Blood BLOOD SPECIMEN / Unknown 12/27/2017 6:51 AM CDT 12/27/2017 6:56 AM CDT [facility] - 12/27/2017 6:56 AM CDT Legal Secretary Receptionist: MARISOL LAZO Diomedes Etienne MD LAB - POINT OF CARE ORDERABLES Performing Organization Address [facility] Co de Phone Number [address] [phone] * (ABNORMAL) GLUCOSE - POINT OF CARE (12/27/2017 5:38 AM CDT) Glucose WB/POC 224(H) 70 - 115 mg/dL 12/27/2017 5:43 AM CDT [facility] Specimen Type Arterial/C apillary 12/27/2017 5:43 AM CDT [facility] Blood BLOOD SPECIMEN / Unknown 12/27/2017 5:38 AM CDT 12/27/2017 5:43 AM CDT [facility] - 12/27/2017 5:43 AM CDT Legal Secretary Receptionist: MARISOL LAZO Diomedes Etienne MD LAB - POINT OF CARE ORDERABLES Performing Organization Address [facility] de Phone Number [address] [phone] * (ABNORMAL) GLUCOSE - POINT OF CARE (12/27/2017 3:57 AM CDT) Glucose WB/POC 138(H) 70 - 115 mg/dL 12/27/2017 4:02 AM CDT [facility] Specimen Type Arterial/C apillary 12/27/2017 4:02 AM CDT [facility] Blood BLOOD SPECIMEN / Unknown 12/27/2017 3:57 AM CDT 12/27/2017 4:02 AM CDT [facility] - 12/27/2017 4:02 AM CDT Legal Secretary Receptionist: MARISOL Mg?CATARINA LAZO Diomedes Etienne MD LAB - POINT OF CARE ORDERABLES Performing Organization Address [facility]/ZIP Co de Phone Number [address] [phone] * (ABNORMAL) PHOSPHORUS BLOOD (12/27/2017 2:17 AM CDT) Phosphorus 2.1(L) 2.3 - 4.7 mg/dL 12/27/2017 2:52 AM CDT [facility] Blood BLOOD SPECIMEN / Unknown Venipuncture / Unknown 12/27/2017 2:17 AM CDT 12/27/2017 2:22 AM CDT Connie Loya MD LAB - CHEMISTRY HANDY KONG Performing Organization Address [facility] Co de Phone Number [address] [phone] * MAGNESIUM BLOOD (12/27/2017 2:17 AM CDT) Magnesium 2.0 1.6 - 2.6 mg/dL 12/27/2017 2:52 AM CDT [facility] Blood BLOOD SPECIMEN / Unknown Venipuncture / Unknown 12/27/2017 2:17 AM CDT 12/27/2017 2:22 AM CDT Connie Loya MD LAB - CHEMISTRY HANDY KONG Performing Organization Address [facility]/ZIP Co de Phone Number [address] [phone] * (ABNORMAL) BASIC METABOLIC PANEL (CALCIUM TOTAL) (12/27/2017 2:17 AM CDT) BUN 4(L) 7 - 26 mg/dL 12/27/2017 2:57 AM CDT [facility] Creatinine 0.4(L) 0.6 - 1.2 mg/dL 12/27/2017 2:57 AM CDT [facility] Sodium 138 136 - 145 mmol/L 12/27/2017 2:57 AM CDT [facility] Potassium 3.3(L) 3.5 - 4.5 mmol/L 12/27/2017 2:57 AM [facility] Chloride 106 98 - 107 mmol/L 12/27/2017 2:57 AM [facility] CO2 20(L) 22 - 29 mmol/L 12/27/2017 2:57 AM [facility] Glucose 150(H) 70 - 115 mg/dL 12/27/2017 2:57 AM [facility] Calcium 8.8 8.4 - 10.2 mg/dL 12/27/2017 2:57 AM [facility] Anion Gap 15 8 - 18 12/27/2017 2:57 AM [facility] BUN/Creatinine Ratio 10 7 - 23 12/27/2017 2:57 AM [facility] Osmolality Calculated 286 270 - 300 mOsm/kg 12/27/2017 2:57 AM [facility] eGFR >60 >60 mL/min/1.7 3 m2 12/27/2017 2:57 AM [facility] Blood BLOOD SPECIMEN / Unknown Venipuncture / Unknown 12/27/2017 2:17 AM CDT 12/27/2017 2:22 AM CDT Connie Loya MD LAB - CHEMISTRY HANDY [facility] Organization Address City/State/ZIP Co de Phone Number [address] [phone] * (ABNORMAL) CBC W AUTO DIFFERENTIAL (12/27/2017 2:17 AM CDT) WBC 10.3 3.5 - 10.5 10? 3 /uL 12/27/2017 2:28 AM [facility] RBC 4.58 3.90 - 5.00 10? 6 /uL 12/27/2017 2:28 AM [facility] Hemoglobin 12.3 12.0 - 15.5 g/dL 12/27/2017 2:28 AM [facility] Hematocrit 36.9 35.0 - 45.0 % 12/27/2017 2:28 AM [facility] MCV 80.6(L) 81.0 - 97.0 fL 12/27/2017 2:28 AM [facility] MCH 26.9(L) 28.0 - 34.0 pg 12/27/2017 2:28 AM [facility] MCHC 33.3 32.0 - 36.0 g/dL 12/27/2017 2:28 AM [facility] Platelet Count 416(H) 150 - 400 10? 3 /uL 12/27/2017 2:28 AM [facility] RDW-SD 42.3 36.0 - 50.0 fL 12/27/2017 2:28 AM [facility] RDW-CV 14.3 11.2 - 14.8 % 12/27/2017 2:28 AM [facility] MPV 8.6(L) 9.3 - 12.8 fL 12/27/2017 2:28 AM [facility] Neutrophils % 69.9 35.0 - 70.0 % 12/27/2017 2:28 AM [facility] Lymphocytes % 22.9 19.7 - 55.1 % 12/27/2017 2:28 AM [facility] Monocytes % 7.1 3.0 - 15.0 % 12/27/2017 2:28 AM [facility] Eosinophils % 0.0 0.0 - 6.0 % 12/27/2017 2:28 AM [facility] Basophil % 0.1 0.0 - 1.5 % 12/27/2017 2:28 AM [facility] Neutrophils Absolute 7.2(H) 1.6 - 7.0 10? 3 /uL 12/27/2017 2:28 AM [facility] Lymphocyte Absolute 2.4 0.8 - 2.9 10? 3 /uL 12/27/2017 2:28 AM [facility] Monocytes Absolute 0.73(H) 0.14 - 0.66 10? 3 /uL 12/27/2017 2:28 AM [facility] Eosinophils Absolute 0.00 0.00 - 0.22 10? 3 /uL 12/27/2017 2:28 AM [facility] Basophils Absolute 0.01 0.00 - 0.06 10? 3 /uL 12/27/2017 2:28 AM [facility] Immature Granulocytes % 0.2 0.0 - 1.0 % 12/27/2017 2:28 AM CDT [facility] Blood BLOOD SPECIMEN / Unknown Venipuncture / Unknown 12/27/2017 2:17 AM CDT 12/27/2017 2:22 AM CDT Connie Loya MD LAB - HEMATOLOGY ORD ERABLES Performing Organization Address City/[facility]/ZIP Co de Phone Number [address] [phone] * (ABNORMAL) GLUCOSE - POINT OF CARE (12/27/2017 1:33 AM CDT) Glucose WB/POC 166(H) 70 - 115 mg/dL 12/27/2017 1:38 AM CDT [facility] Specimen Type Arterial/C apillary 12/27/2017 1:38 AM CDT [facility] Blood BLOOD SPECIMEN / Unknown 12/27/2017 1:33 AM CDT 12/27/2017 1:38 AM CDT [facility] - 12/27/2017 1:38 AM CDT Legal Secretary Receptionist: MARISOL LAZO Diomedes Etienne MD LAB - POINT OF CARE ORDERABLES Performing Organization Address City/[facility] Co de Phone Number [address] [phone] * (ABNORMAL) GLUCOSE - POINT OF CARE (12/27/2017 12:34 AM CDT) Glucose WB/POC 200(H) 70 - 115 mg/dL 12/27/2017 12:39 AM CDT [facility] Specimen Type Arterial/C apillary 12/27/2017 12:39 AM CDT [facility] Blood BLOOD SPECIMEN / Unknown 12/27/2017 12:34 AM CDT 12/27/2017 12:39 AM CDT [facility] - 12/27/2017 12:39 AM CDT Legal Secretary Receptionist: MARISOL LAZO Diomedes Etienne MD LAB - POINT OF CARE ORDERABLES [address] [phone] * (ABNORMAL) GLUCOSE - POINT OF CARE (12/26/2017 11:31 PM CDT) Glucose WB/POC 207(H) 70 - 115 mg/dL 12/26/2017 11:36 PM CDT [facility] Specimen Type Arterial/C apillary 12/26/2017 11:36 PM CDT [facility] Blood BLOOD SPECIMEN / Unknown 12/26/2017 11:31 PM CDT 12/26/2017 11:36 PM CDT Narrative [facility] - 12/26/2017 11:36 PM CDT Legal Secretary Receptionist: MARISOL LAZO Diomedes Etienne MD LAB - POINT OF CARE ORDERABLES Performing Organization Address [facility] [place] [address], [facility] [phone] * (ABNORMAL) GLUCOSE - POINT OF CARE (12/26/2017 10:13 PM CDT) Glucose WB/POC 189(H) 70 - 115 mg/dL 12/26/2017 10:18 PM CDT [facility] Specimen Type Arterial/C apillary 12/26/2017 10:18 PM CDT [facility] Blood BLOOD SPECIMEN / Unknown 12/26/2017 10:13 PM CDT 12/26/2017 10:18 PM CDT Narrative [facility] - 12/26/2017 10:18 PM CDT Legal Secretary Receptionist: MARISOL LAZO Diomedes Etienne MD LAB - POINT OF CARE ORDERABLES Performing Organization Address [facility]/[place]IP [place] [address], [facility] [phone] * (ABNORMAL) BASIC METABOLIC PANEL (CALCIUM TOTAL) (12/26/2017 10:10 PM CDT) BUN 6(L) 7 - 26 mg/dL 12/26/2017 10:31 PM [facility] Creatinine 0.4(L) 0.6 - 1.2 mg/dL 12/26/2017 10:31 PM [facility] Sodium 137 136 - 145 mmol/L 12/26/2017 10:31 PM [facility] Potassium 3.9 3.5 - 4.5 mmol/L 12/26/2017 10:31 PM [facility] Chloride 108(H) 98 - 107 mmol/L 12/26/2017 10:31 PM [facility] CO2 17(L) 22 - 29 mmol/L 12/26/2017 10:31 PM [facility] Glucose 207(H) 70 - 115 mg/dL 12/26/2017 10:31 PM [facility] Calcium 8.1(L) 8.4 - 10.2 mg/dL 12/26/2017 10:31 PM [facility] Anion Gap 16 8 - 18 12/26/2017 10:31 PM [facility] BUN/Creatinine Ratio 15 7 - 23 12/26/2017 10:31 PM [facility] Osmolality Calculated 288 270 - 300 mOsm/kg 12/26/2017 10:31 PM [facility] eGFR >60 >60 mL/min/1.7 3 m2 12/26/2017 10:31 PM [facility] Blood BLOOD SPECIMEN / Unknown Venipuncture / Unknown 12/26/2017 10:10 PM CDT 12/26/2017 10:13 PM T Connie Loya MD LAB - CHEMISTRY HANDY KONG [facility] Organization Address City/State/ZIP Co de Phone Number [address] [phone] * (ABNORMAL) GLUCOSE - POINT OF CARE (12/26/2017 8:27 PM CDT) Glucose WB/POC 145(H) 70 - 115 mg/dL 12/26/2017 8:32 PM [facility] Specimen Type Arterial/C apillary 12/26/2017 8:32 PM [facility] Blood BLOOD SPECIMEN / Unknown 12/26/2017 8:27 PM CDT 12/26/2017 8:32 PM CDT Narrative [facility] - 12/26/2017 8:32 PM CDT Legal Secretary Receptionist: MARISOL ??CATARINA LAZO Diomedes Etienne MD LAB - POINT OF CARE ORDERABLES Performing Organization Address [facility]/State/ZIP Co de Phone Number [address] [phone] * (ABNORMAL) GLUCOSE - POINT OF CARE (12/26/2017 7:35 PM CDT) Glucose WB/POC 142(H) 70 - 115 mg/dL 12/26/2017 7:40 PM CDT [facility] Specimen Type Arterial/C apillary 12/26/2017 7:40 PM CDT [facility] Blood BLOOD SPECIMEN / Unknown 12/26/2017 7:35 PM CDT 12/26/2017 7:40 PM CDT Narrative [facility] - 12/26/2017 7:40 PM CDT Legal Secretary Receptionist: MARISOL ?MAVERICK LAZO Diomedes Etienne MD LAB - POINT OF CARE ORDERABLES Performing Organization Address [facility]/ZIP Co de Phone Number [address] [phone] * (ABNORMAL) PHOSPHORUS BLOOD (12/26/2017 6:05 PM CDT) Phosphorus 1.9(L) 2.3 - 4.7 mg/dL 12/26/2017 6:33 PM CDT [facility] Blood BLOOD SPECIMEN / Unknown Venipuncture / Unknown 12/26/2017 6:05 PM CDT 12/26/2017 6:10 PM CDT Connie Loya MD LAB - CHEMISTRY HANDY [place] [address] [phone] * MAGNESIUM BLOOD (12/26/2017 6:05 PM CDT) Magnesium 1.7 1.6 - 2.6 mg/dL 12/26/2017 6:33 PM [facility] Blood BLOOD SPECIMEN / Unknown Venipuncture / Unknown 12/26/2017 6:05 PM CDT 12/26/2017 6:10 PM CDT Connie Loya MD LAB - CHEMISTRY HANDY [place] Organization Address City/State/ZIP Co de Phone Number [address] [phone] * (ABNORMAL) BASIC METABOLIC PANEL (CALCIUM TOTAL) (12/26/2017 6:05 PM CDT) BUN 7 7 - 26 mg/dL 12/26/2017 6:38 PM [facility] Creatinine 0.5(L) 0.6 - 1.2 mg/dL 12/26/2017 6:38 PM [facility] Sodium 138 136 - 145 mmol/L 12/26/2017 6:38 PM [facility] Potassium 3.5 3.5 - 4.5 mmol/L 12/26/2017 6:38 PM [facility] Chloride 109(H) 98 - 107 mmol/L 12/26/2017 6:38 PM [facility] CO2 14(L) 22 - 29 mmol/L 12/26/2017 6:38 PM [facility] Glucose 157(H) 70 - 115 mg/dL 12/26/2017 6:38 PM [facility] Calcium 8.3(L) 8.4 - 10.2 mg/dL 12/26/2017 6:38 PM [facility] Anion Gap 19(H) 8 - 18 12/26/2017 6:38 PM [facility] BUN/Creatinine Ratio 14 7 - 23 12/26/2017 6:38 PM [facility] Osmolality Calculated 287 270 - 300 mOsm/kg 12/26/2017 6:38 PM [facility] eGFR >60 >60 mL/min/1.7 3 m2 12/26/2017 6:38 PM [facility] Blood BLOOD SPECIMEN / Unknown Venipuncture / Unknown 12/26/2017 6:05 PM CDT 12/26/2017 6:10 PM CDT Connie Loya MD LAB - [place]MISTRY [place] [address], [facility] [phone] * (ABNORMAL) GLUCOSE - POINT OF CARE (12/26/2017 6:04 PM CDT) Glucose WB/POC 160(H) 70 - 115 mg/dL 12/26/2017 6:05 PM CDT [facility] Specimen Type Venous 12/26/2017 6:05 PM CDT [facility] Blood BLOOD SPECIMEN / Unknown 12/26/2017 6:04 PM CDT 12/26/2017 6:05 PM CDT [facility] - 12/26/2017 6:05 PM CDT Legal Secretary Receptionist: DREAD [place] Diomedes Etienne MD LAB - POINT OF CARE ORDERABLES Performing Organization Address [facility]/[place] [address], [facility] [phone] * (ABNORMAL) GLUCOSE - POINT OF CARE (12/26/2017 4:58 PM CDT) Glucose WB/POC 149(H) 70 - 115 mg/dL 12/26/2017 4:59 PM CDT [facility] Specimen Type Arterial/C apillary 12/26/2017 4:59 PM CDT [facility] Blood BLOOD SPECIMEN / Unknown 12/26/2017 4:58 PM CDT 12/26/2017 4:59 PM CDT [facility] - 12/26/2017 4:59 PM CDT Legal Secretary Receptionist: [place] Diomedes Etienne MD LAB - POINT [place] [address], [facility] [phone] * (ABNORMAL) GLUCOSE - POINT OF CARE (12/26/2017 3:01 PM CDT) Glucose WB/POC 165(H) 70 - 115 mg/dL 12/26/2017 3:01 PM CDT [facility] Specimen Type Arterial/C apillary 12/26/2017 3:01 PM CDT [facility] Blood BLOOD SPECIMEN / Unknown 12/26/2017 3:01 PM CDT 12/26/2017 3:01 PM CDT Narrative [facility] - 12/26/2017 3:01 PM CDT Legal Secretary Receptionist: [place] Diomedes Etienne MD LAB - POINT OF CARE ORDERABLES Performing Organization Address [facility]/State/ZIP Co de Phone Number [address] [phone] * (ABNORMAL) GLUCOSE - POINT OF CARE (12/26/2017 2:09 PM CDT) Glucose WB/POC 165(H) 70 - 115 mg/dL 12/26/2017 2:10 PM CDT [facility] Specimen Type Arterial/C apillary 12/26/2017 2:10 PM CDT [facility] Blood BLOOD SPECIMEN / Unknown 12/26/2017 2:09 PM CDT 12/26/2017 2:10 PM CDT Narrative [facility] - 12/26/2017 2:10 PM CDT Legal Secretary Receptionist: [place] Diomedes Etienne MD LAB - POINT OF CARE ORDERABLES [address] [phone] * (ABNORMAL) BASIC METABOLIC PANEL (CALCIUM TOTAL) (12/26/2017 2:06 PM CDT) BUN 8 7 - 26 mg/dL 12/26/2017 2:36 PM CDT [facility] Creatinine 0.5(L) 0.6 - 1.2 mg/dL 12/26/2017 2:36 PM CDT [facility] Sodium 137 136 - 145 mmol/L 12/26/2017 2:36 PM [facility] Potassium 4.0 3.5 - 4.5 mmol/L 12/26/2017 2:36 PM [facility] Chloride 110(H) 98 - 107 mmol/L 12/26/2017 2:36 PM [facility] CO2 12(L) 22 - 29 mmol/L 12/26/2017 2:36 PM [facility] Glucose 167(H) 70 - 115 mg/dL 12/26/2017 2:36 PM [facility] Calcium 8.2(L) 8.4 - 10.2 mg/dL 12/26/2017 2:36 PM [facility] Anion Gap 19(H) 8 - 18 12/26/2017 2:36 PM [facility] BUN/Creatinine Ratio 16 7 - 23 12/26/2017 2:36 PM [facility] Osmolality Calculated 286 270 - 300 mOsm/kg 12/26/2017 2:36 PM [facility] eGFR >60 >60 mL/min/1.7 3 m2 12/26/2017 2:36 PM [facility] Blood BLOOD SPECIMEN / Unknown Venipuncture / Unknown 12/26/2017 2:06 PM CDT 12/26/2017 2:16 PM CDT Connie Loya MD LAB - CHEMISTRY HANDY KONG [facility] Organization Address City/State/ZIP Co de Phone Number [address] [phone] * (ABNORMAL) GLUCOSE - POINT OF CARE (12/26/2017 1:03 PM CDT) Glucose WB/POC 142(H) 70 - 115 mg/dL 12/26/2017 1:04 PM T [facility] Specimen Type Arterial/C apillary 12/26/2017 1:04 PM [facility] Blood BLOOD SPECIMEN / Unknown 12/26/2017 1:03 PM CDT 12/26/2017 1:04 PM CDT Narrative [facility] - 12/26/2017 1:04 PM CDT Legal Secretary Receptionist: DREAD PARISH Diomedes Etienne MD LAB - POINT OF CARE ORDERABLES [address] [phone] * (ABNORMAL) GLUCOSE - POINT OF CARE (12/26/2017 11:56 AM CDT) Glucose WB/POC 153(H) 70 - 115 mg/dL 12/26/2017 12:56 PM CDT [facility] Specimen Type Arterial/C apillary 12/26/2017 12:56 PM CDT [facility] Blood BLOOD SPECIMEN / Unknown 12/26/2017 11:56 AM CDT 12/26/2017 12:56 PM CDT [facility] - 12/26/2017 12:56 PM CDT Legal Secretary Receptionist: [place] Diomedes Etienne MD LAB - POINT OF CARE ORDERABLES Performing Organization Address [facility]/ZIP Co de Phone Number [address] [phone] * (ABNORMAL) GLUCOSE - POINT OF CARE (12/26/2017 10:51 AM CDT) Glucose WB/POC 206(H) 70 - 115 mg/dL 12/26/2017 10:56 AM CDT [facility] Specimen Type Arterial/C apillary 12/26/2017 10:56 AM CDT [facility] Blood BLOOD SPECIMEN / Unknown 12/26/2017 10:51 AM CDT 12/26/2017 10:56 AM CDT Narrative [facility] - 12/26/2017 10:56 AM CDT Legal Secretary Receptionist: [place] Diomedes Etienne MD LAB - POINT [place] [address], [facility] [phone] * (ABNORMAL) GLUCOSE - POINT OF CARE (12/26/2017 9:59 AM CDT) Glucose WB/POC 197(H) 70 - 115 mg/dL 12/26/2017 10:01 AM CDT [facility] Specimen Type Arterial/C apillary 12/26/2017 10:01 AM CDT [facility] Blood BLOOD SPECIMEN / Unknown 12/26/2017 9:59 AM CDT 12/26/2017 10:01 AM CDT Narrative [facility] - 12/26/2017 10:01 AM CDT Legal Secretary Receptionist: [place] Diomedes Etienne MD LAB - POINT OF CARE ORDERABLES [address] [phone] * (ABNORMAL) GLUCOSE - POINT OF CARE (12/26/2017 9:57 AM CDT) Glucose WB/POC 204(H) 70 - 115 mg/dL 12/26/2017 10:01 AM CDT [facility] Specimen Type Arterial/C apillary 12/26/2017 10:01 AM CDT [facility] Blood BLOOD SPECIMEN / Unknown 12/26/2017 9:57 AM CDT 12/26/2017 10:01 AM CDT Narrative [facility] - 12/26/2017 10:01 AM CDT Legal Secretary Receptionist: [place] Diomedes Etienne MD LAB - POINT OF CARE ORDERABLES [address] [phone] * (ABNORMAL) PHOSPHORUS BLOOD (12/26/2017 9:55 AM CDT) Phosphorus 2.2(L) 2.3 - 4.7 mg/dL 12/26/2017 10:31 AM CDT [facility] Blood BLOOD SPECIMEN / Unknown Venipuncture / Unknown 12/26/2017 9:55 AM CDT 12/26/2017 10:03 AM CDT Connie Loya MD LAB - CHEMISTRY HANDY KONG [address] [phone] * MAGNESIUM BLOOD (12/26/2017 9:55 AM CDT) Magnesium 1.6 1.6 - 2.6 mg/dL 12/26/2017 10:31 AM [facility] Blood BLOOD SPECIMEN / Unknown Venipuncture / Unknown 12/26/2017 9:55 AM CDT 12/26/2017 10:03 AM CDT Connie Loya MD LAB - CHEMISTRY HANDY KONG Performing Organization Address City/[facility]/ZIP Co de Phone Number [address] [phone] * (ABNORMAL) BASIC METABOLIC PANEL (CALCIUM TOTAL) (12/26/2017 9:55 AM CDT) BUN 10 7 - 26 mg/dL 12/26/2017 10:33 AM [facility] Creatinine 0.6 0.6 - 1.2 mg/dL 12/26/2017 10:33 AM [facility] Sodium 138 136 - 145 mmol/L 12/26/2017 10:33 AM [facility] Potassium 4.0 3.5 - 4.5 mmol/L 12/26/2017 10:33 AM [facility] Chloride 110(H) 98 - 107 mmol/L 12/26/2017 10:33 AM [facility] CO2 10(L) 22 - 29 mmol/L 12/26/2017 10:33 AM [facility] Glucose 203(H) 70 - 115 mg/dL 12/26/2017 10:33 AM [facility] Calcium 8.0(L) 8.4 - 10.2 mg/dL 12/26/2017 10:33 AM [facility] Anion Gap 22(H) 8 - 18 12/26/2017 10:33 AM [facility] BUN/Creatinine Ratio 17 7 - 23 12/26/2017 10:33 AM CDT [facility] Osmolality Calculated 291 270 - 300 mOsm/kg 12/26/2017 10:33 AM CDT [facility] eGFR >60 >60 mL/min/1.7 3 m2 12/26/2017 10:33 AM T [facility] Blood BLOOD SPECIMEN / Unknown Venipuncture / Unknown 12/26/2017 9:55 AM CDT 12/26/2017 10:03 AM CDT Connie Loya MD LAB - CHEMISTRY HANDY KONG [address] [phone] * (ABNORMAL) GLUCOSE - POINT OF CARE (12/26/2017 8:50 AM CDT) Glucose WB/POC 139(H) 70 - 115 mg/dL 12/26/2017 8:51 AM T [facility] Specimen Type Arterial/C apillary 12/26/2017 8:51 AM T [facility] Blood BLOOD SPECIMEN / Unknown 12/26/2017 8:50 AM CDT 12/26/2017 8:51 AM CDT [facility] - 12/26/2017 8:51 AM CDT Legal Secretary Receptionist: [place] Diomedes Etienne MD LAB - POINT OF CARE ORDERABLES [address] [phone] * (ABNORMAL) GLUCOSE - POINT OF CARE (12/26/2017 8:01 AM CDT) Glucose WB/POC 146(H) 70 - 115 mg/dL 12/26/2017 8:02 AM T [facility] Specimen Type Arterial/C apillary 12/26/2017 8:02 AM T [facility] Blood BLOOD SPECIMEN / Unknown 12/26/2017 8:01 AM CDT 12/26/2017 8:02 AM CDT [facility] - 12/26/2017 8:02 AM CDT Legal Secretary Receptionist: DREAD ??LAURA Diomedes Etienne MD LAB - POINT OF CARE ORDERABLES [address] [phone] * (ABNORMAL) GLUCOSE - POINT OF CARE (12/26/2017 6:41 AM CDT) Glucose WB/POC 167(H) 70 - 115 mg/dL 12/26/2017 6:45 AM CDT [facility] Specimen Type Arterial/C apillary 12/26/2017 6:45 AM CDT [facility] Blood BLOOD SPECIMEN / Unknown 12/26/2017 6:41 AM CDT 12/26/2017 6:45 AM CDT Narrative [facility] - 12/26/2017 6:45 AM CDT Legal Secretary Receptionist: MARISOL ??CATARINA LAZO Diomedes Etienne MD LAB - POINT OF CARE ORDERABLES Performing Organization Address [facility]/ZIP Co de Phone Number [address] [phone] * LACTIC ACID BLOOD (12/26/2017 6:11 AM CDT) Pathologist [facility] Lactic Acid-Stat 1.4 0.5 - 2.2 mmol/L 12/26/2017 6:52 AM CDT [facility] Blood BLOOD SPECIMEN / Unknown Venipuncture / Unknown 12/26/2017 6:11 AM CDT 12/26/2017 6:20 AM CDT Connie Loya MD LAB - CHEMISTRY HANDY KONG Performing Organization Address City/[facility]/ZIP Co de Phone Number [address] [phone] * PT-INR [facility] (12/26/2017 6:11 AM CDT) PT 14.3 12.1 - 14.8 Seconds 12/26/2017 6:46 AM CDT [facility] INR 1.1 See Comment 12/26/2017 6:46 AM [facility] Comment: The suggested therapeutic range for standard coumadin (warfarin) therapy is an INR of 2.0-3.0. For high-risk patients (Mechanical Mitral Valve Prosthesis, etc.), the suggested prophylactic therapeutic range is an INR of 2.5-3.5. Blood BLOOD SPECIMEN / Unknown Venipuncture / Unknown 12/26/2017 6:11 AM CDT 12/26/2017 6:20 AM CDT Connie Loya MD LAB - COAGULATION OR DERABLES [facility] [address] [place] [address] * (ABNORMAL) BASIC METABOLIC PANEL (CALCIUM TOTAL) (12/26/2017 6:11 AM CDT) BUN 13 7 - 26 mg/dL 12/26/2017 6:55 AM [facility] Creatinine 0.4(L) 0.6 - 1.2 mg/dL 12/26/2017 6:55 AM [facility] Sodium 137 136 - 145 mmol/L 12/26/2017 6:55 AM [facility] Potassium 4.0 3.5 - 4.5 mmol/L 12/26/2017 6:55 AM [facility] Chloride 112(H) 98 - 107 mmol/L 12/26/2017 6:55 AM [facility] CO2 10(L) 22 - 29 mmol/L 12/26/2017 6:55 AM [facility] Glucose 149(H) 70 - 115 mg/dL 12/26/2017 6:55 AM [facility] Calcium 8.5 8.4 - 10.2 mg/dL 12/26/2017 6:55 AM [facility] Anion Gap 19(H) 8 - 18 12/26/2017 6:55 AM [facility] BUN/Creatinine Ratio 33(H) 7 - 23 12/26/2017 6:55 AM [facility] Osmolality Calculated 287 270 - 300 mOsm/kg 12/26/2017 6:55 AM [facility] eGFR >60 >60 mL/min/1.7 3 m2 12/26/2017 6:55 AM [facility] Blood BLOOD SPECIMEN / Unknown Venipuncture / Unknown 12/26/2017 6:11 AM CDT 12/26/2017 6:20 AM CDT Connie Loya MD LAB - CHEMISTRY HANDY KNOG [facility] Organization Address City/State/ZIP Co de Phone Number [facility] [address] [phone] * (ABNORMAL) CBC W AUTO DIFFERENTIAL (12/26/2017 6:11 AM CDT) WBC 12.7(H) 3.5 - 10.5 10? 3 /uL 12/26/2017 6:32 AM [facility] Comment:Results are confirme d by repeat analysis. RBC 4.20 3.90 - 5.00 10? 6 /uL 12/26/2017 6:32 AM [facility] Hemoglobin 11.4(L) 12.0 - 15.5 g/dL 12/26/2017 6:32 AM [facility] Hematocrit 34.9(L) 35.0 - 45.0 % 12/26/2017 6:32 AM [facility] MCV 83.1 81.0 - 97.0 fL 12/26/2017 6:32 AM [facility] MCH 27.1(L) 28.0 - 34.0 pg 12/26/2017 6:32 AM [facility] MCHC 32.7 32.0 - 36.0 g/dL 12/26/2017 6:32 AM [facility] Platelet Count 441(H) 150 - 400 10? 3 /uL 12/26/2017 6:32 AM [facility] RDW-SD 44.1 36.0 - 50.0 fL 12/26/2017 6:32 AM [facility] RDW-CV 14.5 11.2 - 14.8 % 12/26/2017 6:32 AM [facility] MPV 9.2(L) 9.3 - 12.8 fL 12/26/2017 6:32 AM [facility] Neutrophils % 83.3(H) 35.0 - 70.0 % 12/26/2017 6:32 AM [facility] Lymphocytes % 12.6(L) 19.7 - 55.1 % 12/26/2017 6:32 AM [facility] Monocytes % 4.0 3.0 - 15.0 % 12/26/2017 6:32 AM [facility] Eosinophils % 0.0 0.0 - 6.0 % 12/26/2017 6:32 AM [facility] Basophil % 0.1 0.0 - 1.5 % 12/26/2017 6:32 AM [facility] Neutrophils Absolute 10.6(H) 1.6 - 7.0 10? 3 /uL 12/26/2017 6:32 AM [facility] Lymphocyte Absolute 1.6 0.8 - 2.9 10? 3 /uL 12/26/2017 6:32 AM [facility] Monocytes Absolute 0.51 0.14 - 0.66 10? 3 /uL 12/26/2017 6:32 AM [facility] Eosinophils Absolute 0.00 0.00 - 0.22 10? 3 /uL 12/26/2017 6:32 AM [facility] Basophils Absolute 0.01 0.00 - 0.06 10? 3 /uL 12/26/2017 6:32 AM [facility] Immature Granulocytes % 0.3 0.0 - 1.0 % 12/26/2017 6:32 AM [facility] Blood BLOOD SPECIMEN / Unknown Venipuncture / Unknown 12/26/2017 6:11 AM CDT 12/26/2017 6:20 AM T Connie Loya MD LAB - HEMATOLOGY ORD ERABLES [facility] [address] [phone] * EKG 12-LEAD (12/26/2017 5:46 AM T) Ventricular Rate 126 BPM [facility] MUSE Atrial Rate 126 BPM [facility] MUSE P-R Interval 128 ms [facility] MUSE QRS Duration ms 72 ms [facility] MUSE Q-T Interval ms 312 ms [facility] MUSE QTC Calculation (Bezet) 451 ms [facility] MUSE Calculated P Dierks 79 degrees SL MUSE Calculated R Dierks 96 degrees SL MUSE Calculated T Dierks -10 degrees [facility] MUSE Interpretation EKG SINUS TACHYCARDIA RIGHTWARD AXIS ST & T WAVE ABNORMALITY, CONSIDER INFERIOR ISCHEMIA ABNORMAL ECG WHEN COMPARED WITH ECG OF 28-NOV-2017 21:38, Heart rate has increased by 30bpm Confirmed by MD Mitul. , Laura ([id number]), image editor Gen Schafer ([id number]) on 01/12/2018 9:31:33 PM [facility] MUSE 12/26/2017 5:46 AM CDT 01/12/2018 9:31 PM CDT Connie Loya MD ECG ORDERABLES Performing Organization Address City/[facility]/ZIP Co de Phone Number [facility] * (ABNORMAL) GLUCOSE - POINT OF CARE (12/26/2017 4:42 AM CDT) Glucose WB/POC 167(H) 70 - 115 mg/dL 12/26/2017 4:46 AM CDT [facility] Specimen Type Arterial/C apillary 12/26/2017 4:46 AM CDT [facility] Blood BLOOD SPECIMEN / Unknown 12/26/2017 4:42 AM CDT 12/26/2017 4:46 AM CDT Narrative [facility] - 12/26/2017 4:46 AM CDT Legal Secretary Receptionist: MARISOL ?MAVERICK LAZO Diomedes Etienne MD LAB - POINT OF CARE ORDERABLES [address] [phone] * (ABNORMAL) GLUCOSE - POINT OF CARE (12/26/2017 3:45 AM CDT) Glucose WB/POC 181(H) 70 - 115 mg/dL 12/26/2017 3:47 AM CDT [facility] Specimen Type Arterial/C apillary 12/26/2017 3:47 AM CDT [facility] Blood BLOOD SPECIMEN / Unknown 12/26/2017 3:45 AM CDT 12/26/2017 3:47 AM CDT Narrative [facility] - 12/26/2017 3:47 AM CDT Legal Secretary Receptionist: JESSICA ?PRATIMA Mar Ernandez MD LAB - POINT OF CARE ORDERABLES [address] [phone] * (ABNORMAL) GLUCOSE - POINT OF CARE (12/26/2017 2:17 AM CDT) Glucose WB/POC 284(H) 70 - 115 mg/dL 12/26/2017 2:22 AM CDT [facility] Specimen Type Venous 12/26/2017 2:22 AM CDT [facility] Blood BLOOD SPECIMEN / Unknown 12/26/2017 2:17 AM CDT 12/26/2017 2:22 AM CDT Narrative [facility] - 12/26/2017 2:22 AM CDT Legal Secretary Receptionist: DAMIAN ?MARY ELLEN Mar Ernandez MD LAB - POINT OF CARE ORDERABLES [address] [phone] * PHOSPHORUS BLOOD (12/26/2017 2:16 AM CDT) Phosphorus 3.4 2.3 - 4.7 mg/dL 12/26/2017 5:27 AM CDT [facility] Blood BLOOD SPECIMEN / Unknown Venipuncture / Unknown 12/26/2017 2:16 AM CDT 12/26/2017 2:16 AM CDT Connie Loya MD LAB - CHEMISTRY HANDY KONG [address] [phone] * MAGNESIUM BLOOD (12/26/2017 2:16 AM CDT) Magnesium 1.9 1.6 - 2.6 mg/dL 12/26/2017 5:27 AM [facility] Blood BLOOD SPECIMEN / Unknown Venipuncture / Unknown 12/26/2017 2:16 AM CDT 12/26/2017 2:16 AM CDT Connie Loya MD LAB - CHEMISTRY HANDY KONG [facility] Organization Address City/State/ZIP Co de Phone Number [address] [phone] * (ABNORMAL) BASIC METABOLIC PANEL (CALCIUM TOTAL) (12/26/2017 2:16 AM CDT) Pathologist [facility] BUN 16 7 - 26 mg/dL 12/26/2017 2:43 AM [facility] Creatinine 0.6 0.6 - 1.2 mg/dL 12/26/2017 2:43 AM [facility] Sodium 139 136 - 145 mmol/L 12/26/2017 2:43 AM [facility] Potassium 5.3(H) 3.5 - 4.5 mmol/L 12/26/2017 2:43 AM [facility] Chloride 106 98 - 107 mmol/L 12/26/2017 2:43 AM [facility] CO2 8(LL) 22 - 29 mmol/L 12/26/2017 2:43 AM [facility] Comment:RESULTS CALLED TO AN D READ BACK BY Que Waldrop RN AT 2:43 AM, 12/26/2017 Glucose 311(H) 70 - 115 mg/dL 12/26/2017 2:43 AM [facility] Calcium 9.4 8.4 - 10.2 mg/dL 12/26/2017 2:43 AM [facility] Anion Gap 30(H) 8 - 18 12/26/2017 2:43 AM [facility] BUN/Creatinine Ratio 27(H) 7 - 23 12/26/2017 2:43 AM [facility] Osmolality Calculated 301(H) 270 - 300 mOsm/kg 12/26/2017 2:43 AM [facility] eGFR >60 >60 mL/min/1.7 3 m2 12/26/2017 2:43 AM [facility] Blood BLOOD SPECIMEN / Unknown Venipuncture / Unknown 12/26/2017 2:16 AM CDT 12/26/2017 2:16 AM CDT Dannie Lafleur MD LAB - CHEMISTRY OR DERABLES [facility] [address] [phone] * (ABNORMAL) BLOOD GASES JACLYN (12/26/2017 1:24 AM CDT) pH Mixed Venous 7.23(L) 7.30 - 7.40 12/26/2017 2:24 AM [facility] pCO2 Mixed Venous 28(L) 40 - 46 mmHg 12/26/2017 2:24 AM [facility] pO2 Mixed Venous 52(H) 35 - 42 mmHg 12/26/2017 2:24 AM [facility] HCO3 Mixed Venous 11.3(L) 22.0 - 26.0 mmol/L 12/26/2017 2:24 AM [facility] TCO2 Mixed Venous 12.1(L) 25.0 - 29.0 mmol/L 12/26/2017 2:24 AM [facility] Base Excess Venous -14.7(L) -2.0 - 2.0 mmol/L 12/26/2017 2:24 AM [facility] Hemoglobin Mixed Venous 13.1 12.0 - 15.5 g/dL 12/26/2017 2:24 AM [facility] Oxyhemoglobin Mixed Venous 80.1(H) 66.0 - 77.0 % 12/26/2017 2:24 AM [facility] Carboxyhemoglobin Venous 0.3 0.0 - 3.0 % 12/26/2017 2:24 AM [facility] Methemoglobin 0.5 0.0 - 2.0 % 12/26/2017 2:24 AM [facility] FI O2 Mixed Venous 21.0 % 2017 2:24 AM [facility] Blood BLOOD SPECIMEN / Unknown Venipuncture / Unknown 12/26/2017 1:24 AM CDT 12/26/2017 2:22 AM CDT Dannei Lafleur MD LAB - BLOOD [place] [address], [facility] [phone] * XR CHEST 2VW (12/26/2017 12:53 AM CDT) Anatomical Region Laterality Modality Chest Radiographic Sarahy ging 12/26/2017 1:58 AM CDT Impressions 12/26/2017 6:56 AM CDT FINDINGS/IMPRESSION: Lungs are clear and well-expanded. ??There is no focal consolidation, pleural effusion, or pneumothorax. The cardiomediastinal silhouette is normal. This report was dictated by Jd Gray M.D. (resident care technician). Dr. EDGAR Medina MD have personally reviewed and interpreted this [...] report was dictated by Jd Gray M.D. (resident care technician). Dr. EDGAR Medina MD have personally reviewed and interpreted this examination/study. This report was electronically signed by EDGAR GUTIERREZ MD on12/26/2017 6:56 AM . Mar Ernandez MD DIAGNOSTIC IMAGING O RDERABLES * (ABNORMAL) GLUCOSE - POINT OF CARE (12/26/2017 12:14 AM CDT) Glucose WB/POC 307(H) 70 - 115 mg/dL 12/26/2017 12:20 AM CDT [facility] Specimen Type Arterial/C apillary 12/26/2017 12:20 AM CDT [facility] Blood BLOOD SPECIMEN / Unknown 12/26/2017 12:14 AM CDT 12/26/2017 12:20 AM CDT Narrative [facility] - 12/26/2017 12:20 AM CDT Legal Secretary Receptionist: Tri ?Toni Mar Ernandez MD LAB - POINT OF CARE ORDERABLES Performing Organization Address City/[facility]/ZIP Co de Phone Number [address] [phone] * (ABNORMAL) GLUCOSE - POINT OF CARE (12/25/2017 11:06 PM CDT) Glucose WB/POC 301(H) 70 - 115 mg/dL 12/25/2017 11:09 PM CDT [facility] Specimen Type Arterial/C apillary 12/25/2017 11:09 PM CDT [facility] Blood BLOOD SPECIMEN / Unknown 12/25/2017 11:06 PM CDT 12/25/2017 11:09 PM CDT Narrative [facility] - 12/25/2017 11:09 PM CDT Legal Secretary Receptionist: SHANNAN ??FADI Provider Unknown LAB - POINT OF CARE ORDERABLES [address] [phone] * HCG URINE QUALITATIVE - POINT OF CARE (12/25/2017 8:56 PM CDT) HCG Qual Urine Negative Negative [facility] P OCT TESTING QC Verified Yes Yes [facility] POCT TESTING Urine URINE / Unknown 12/25/2017 8 :56 PM CDT Lamar Alexander APRN-911 [employer] DISPATCHER LAB - POINT OF C ARE ORDERABLES [facility] POCT TESTING [address] [phone] * (ABNORMAL) URINALYSIS NO MICROSCOPIC NO CULTURE (12/25/2017 8:55 PM CDT) Color UA Yellow Straw, Yellow, Colorless, Light Yellow 12/25/2017 9:16 PM CDT [facility] LABORATORY [facility] Clarity UA Clear Clear 12/25/2017 9:16 PM T [facility] Specific [place] UA 1.027 1.001 - 1.030 12/25/2017 9:16 PM T [facility] pH UA 5.5 5.0 - 8.0 12/25/2017 9:16 PM T [facility] Protein UA 20(A) <=20 mg/dL 12/25/2017 9:16 PM T [facility] Glucose UA >1000(A) Negative mg/dL 12/25/2017 9:16 PM T [facility] Ketone UA >80(A) Negative mg/dL 12/25/2017 9:16 PM T [facility] Bilirubin UA Negative Negative mg/dL 12/25/2017 9:16 PM T [facility] Blood UA Negative Negative 12/25/2017 9:16 PM [facility] Nitrite UA Negative Negative 12/25/2017 9:16 PM [facility] Leukocyte Esterase Trace(A) Negative 12/25/2017 9:16 PM [facility] Urobilinogen UA <2.0 <2.0 mg/dL 8 9:16 PM [facility] Urine URINE SPECIMEN OBTAINED BY CLEAN CATCH PROCEDURE / Unknown Collection / Unknown 12/25/2017 8:55 PM CDT 12/25/2017 8:59 PM CDT Lamar SMYTH LAB - URINALYSIS ORDERABLES [facility] [address] [place] [address] * (ABNORMAL) HYDROXYBUTYRATE BETA (12/25/2017 7:58 PM CDT) Beta-Hydroxybu tyrate 4.55(H) 0.02 - 0.27 mmol/L 12/25/2017 11:24 PM [facility] Comment: Result obtained by dilution. Blood BLOOD SPECIMEN / Unknown Venipuncture / Unknown 12/25/2017 7:58 PM CDT 12/25/2017 10:55 PM CDT Mar Ernandez MD LAB - CHEMISTRY [place] [address] [phone] * (ABNORMAL) LIPASE BLOOD (12/25/2017 7:58 PM CDT) [facility] Lipase 5(L) 8 - 78 Units/L 12/25/2017 9:58 PM [facility] Blood BLOOD SPECIMEN / Unknown Venipuncture / Unknown 12/25/2017 7:58 PM CDT 12/25/2017 8:03 PM CDT Lamar Alexander APRN-911 EMERGENCY SERVICES DISPATCHER LAB - CHEMISTRY ORDERABLES Performing Organization Address [facility]/ZIP Co de Phone Number [address] [phone] * (ABNORMAL) COMPREHENSIVE METABOLIC PANEL (12/25/2017 7:58 PM CDT) [facility] BUN 17 7 - 26 mg/dL 12/25/2017 9:59 PM [facility] Creatinine 0.5(L) 0.6 - 1.2 mg/dL 12/25/2017 9:59 PM [facility] Sodium 140 136 - 145 mmol/L 12/25/2017 9:59 PM [facility] Potassium 4.0 3.5 - 4.5 mmol/L 12/25/2017 9:59 PM [facility] Chloride 102 98 - 107 mmol/L 12/25/2017 9:59 PM [facility] CO2 13(L) 22 - 29 mmol/L 12/25/2017 9:59 PM [facility] Glucose 334(H) 70 - 115 mg/dL 12/25/2017 9:59 PM [facility] Calcium 10.0 8.4 - 10.2 mg/dL 12/25/2017 9:59 PM [facility] Protein Total 7.5 6.0 - 8.3 g/dL 12/25/2017 9:59 PM [facility] Albumin 4.2 3.4 - 5.0 g/dL 12/25/2017 9:59 PM [facility] Bilirubin Total 1.1 0.2 - 1.2 mg/dL 12/25/2017 9:59 PM [facility] Alkaline Phosphatase 94 40 - 150 Units/L 12/25/2017 9:59 PM [facility] ALT 10 0 - 55 Units/L 12/25/2017 9:59 PM [facility] AST 12 5 - 34 Units/L 12/25/2017 9:59 PM [facility] Anion Gap 29(H) 8 - 18 12/25/2017 9:59 PM [facility] BUN/Creatinine Ratio 34(H) 7 - 23 12/25/2017 9:59 PM [facility] Osmolality Calculated 305(H) 270 - 300 mOsm/kg 12/25/2017 9:59 PM [facility] Albumin/Globulin Ratio 1.3 1.1 - 2.3 12/25/2017 9:59 PM [facility] eGFR >60 >60 mL/min/1.7 3 m2 12/25/2017 9:59 PM [facility] Blood BLOOD SPECIMEN / Unknown Venipuncture / Unknown 12/25/2017 7:58 PM CDT 12/25/2017 8:03 PM CDT Lamar Alexander [employer]-[facility] - CHEMISTRY ORDERABLES [facility] [address] [phone] * (ABNORMAL) CBC W AUTO DIFFERENTIAL (12/25/2017 7:58 PM CDT) WBC 5.7 3.5 - 10.5 10? 3 /uL 12/25/2017 8:29 PM [facility] RBC 4.98 3.90 - 5.00 10? 6 /uL 12/25/2017 8:29 PM [facility] Hemoglobin 13.7 12.0 - 15.5 g/dL 12/25/2017 8: PM [facility] Hematocrit 40.3 35.0 - 45.0 % 12/25/2017 8: PM [facility] MCV 80.9(L) 81.0 - 97.0 fL 12/25/2017 8:29 PM [facility] MCH 27.5(L) 28.0 - 34.0 pg 12/25/2017 8: PM [facility] MCHC 34.0 32.0 - 36.0 g/dL 12/25/2017 8:29 PM [facility] Platelet Count 472(H) 150 - 400 10? 3 /uL 12/25/2017 8: PM [facility] Comment:Confirmed by repeat analysis. RDW-SD 42.2 36.0 - 50.0 fL 12/25/2017 8:29 PM [facility] RDW-CV 14.3 11.2 - 14.8 % 12/25/2017 8: PM [facility] MPV 9.4 9.3 - 12.8 fL 12/25/2017 8:29 PM [facility] Neutrophils % 79.4(H) 35.0 - 70.0 % 12/25/2017 8:29 PM [facility] Lymphocytes % 17.3(L) 19.7 - 55.1 % 12/25/2017 8:29 PM [facility] Monocytes % 2.8(L) 3.0 - 15.0 % 12/25/2017 8:29 PM [facility] Eosinophils % 0.0 0.0 - 6.0 % 12/25/2017 8:29 PM [facility] Basophil % 0.5 0.0 - 1.5 % 12/25/2017 8:29 PM [facility] Neutrophils Absolute 4.5 1.6 - 7.0 10? 3 /uL 12/25/2017 8:29 PM [facility] Lymphocyte Absolute 1.0 0.8 - 2.9 10? 3 /uL 12/25/2017 8:29 PM CDT [facility] Monocytes Absolute 0.16 0.14 - 0.66 10? 3 /uL 12/25/2017 8:29 PM CDT [facility] Eosinophils Absolute 0.00 0.00 - 0.22 10? 3 /uL 12/25/2017 8:29 PM CDT [facility] Basophils Absolute 0.03 0.00 - 0.06 10? 3 /uL 12/25/2017 8:29 PM CDT [facility] Immature Granulocytes % 0.2 0.0 - 1.0 % 12/25/2017 8:29 PM CDT [facility] Blood BLOOD SPECIMEN / Unknown Venipuncture / Unknown 12/25/2017 7:58 PM CDT 12/25/2017 8:03 PM CDT Lamar Alexander APRN-911 EMERGENCY SERVICES DISPATCHER LAB - HEMATOLOGY ORDERABLES Performing Organization Address [facility]/ZIP Co de Phone Number [address] [phone] * (ABNORMAL) GLUCOSE - POINT OF CARE (12/25/2017 7:28 PM CDT) [facility] Glucose WB/POC 349(H) 70 - 115 mg/dL 12/25/2017 7:29 PM T [facility] Specimen Type Arterial/C apillary 12/25/2017 7:29 PM CDT [facility] Blood BLOOD SPECIMEN / Unknown 12/25/2017 7:28 PM CDT 12/25/2017 7:29 PM CDT Narrative [facility] - 12/25/2017 7:29 PM CDT Legal Secretary Receptionist: RICHY ??CALE Provider Unknown LAB - POINT OF CARE ORDERABLES Performing Organization Address [facility]/ZIP Co de Phone Number [address] [phone] documented in this encounter Visit Diagnoses Diagnosis Type 1 diabetes mellitus with ketoacidosis without coma (HCC) Chest pain, unspecified type Major depressive disorder with single episode, remission status unspecified Anemia, unspecified type Type 1 diabetes mellitus with ketoacidosis without coma (HCC) Hypokalemia Hypopotassemia Gastroparesis due to DM (HCC) Type II or unspecified type diabetes mellitus with neurological manifestations, not stated as uncontrolled High anion gap metabolic acidosis Acidosis documented in this encounter Administered Medications Inactive Administered Medications - up to 3 most recent administrations Medication Order MAR Action Action Date Dose Rate Site 0.9% NaCl infusion ADS Med 1 dose, Starting on [place] 12/26/17 at 1043, Until [place] 12/26/17 at 1114, Laura Tilley*: cabinet override 0.9% NaCl infusion at 125 mL/hr, Intravenous, NOW, 1 dose, On [place] 12/26/17 at 0300 $ New Bag/Syringe 12/26/2017 3:43 AM CDT 125 mL/hr 0.9% NaCl IV Bolus 1,000 mL, at 983.61 mL/hr, Administer over 61 Minutes, ONCE, 1 dose, On [facility] 12/25/17 at 2000 $ New Bag/Syringe 12/25/2017 7:08 PM CDT 1,000 mL 983.61 mL/hr 0.9% NaCl IV Bolus 1,000 mL, at 983.61 mL/hr, Administer over 61 Minutes, NOW, 1 dose, On [facility] 12/25/17 at 2030 $ New Bag/Syringe 12/25/2017 8:48 PM CDT 1,000 mL 983.61 mL/hr 0.9% NaCl IV Bolus 1,000 mL, at 3,000 mL/hr, Administer over 20 Minutes, ONCE, 1 dose, On [place] 12/26/17 at 0000 $ New Bag/Syringe 12/25/2017 11:43 PM CDT 1,000 mL 3000 mL/hr 0.9% NaCl IV Bolus 1,000 mL, at 3,000 mL/hr, Administer over 20 Minutes, NOW, 1 dose, On [place] 12/26/17 at 0000 $ New Bag/Syringe 12/26/2017 1:21 AM CDT 1,000 mL 3000 mL/hr 0.9% NaCl IV Bolus 1,000 mL, at 1,935.48 mL/hr, Administer over 31 Minutes, ONCE, 1 dose, On [place] 12/26/17 at 0700 $ New Bag/Syringe 12/26/2017 7:01 AM CDT 1,000 mL 1935.48 mL/hr 0.9% NaCl IV Bolus 500 mL, at 967.74 mL/hr, Administer over 31 Minutes, ONCE, 1 dose, On Wed12/26/17 at 1100 $ New Bag/Syringe 12/26/2017 10:50 AM CDT 500 mL 967.74 mL/hr acetaminophen (TYLENOL) tablet 650 mg 650 mg, Oral, EVERY 4 HOURS PRN, Fever, Mild Pain, Starting on Wed12/26/17 at 0416, Until [place] 12/30/17 at 1430 dextrose 5 % and 0.45% NaCl infusion at 100 mL/hr, Intravenous, CONTINUOUS, Starting on Wed12/26/17 at 0445, Until Wed12/26/17 at 1847 $ New Bag/Syringe 12/26/2017 4:38 PM CDT 100 mL/hr 100 mL/hr $ New Bag/Syringe 12/26/2017 6:05 AM CDT 100 mL/hr 100 mL /hr dextrose 5 % and 0.45% NaCl infusion at 150 mL/hr, Intravenous, CONTINUOUS, Starting on Wed12/27/17 at 1345, Until Wed12/28/17 at 1200 $ New Bag/Syringe 12/28/2017 10:46 AM CDT 150 mL/hr 150 mL/hr $ New Bag/Syringe 12/28/2017 3:21 AM CDT 150 mL/hr 150 mL /hr $ New Bag/Syringe 12/27/2017 8:57 PM CDT 150 mL/hr 150 mL /hr dextrose 5% and lactated ringers infusion at 125 mL/hr, Intravenous, CONTINUOUS, Starting on Wed12/26/17 at 1930, Until Wed12/27/17 at 0700 $ New Bag/Syringe 12/27/2017 4:44 AM CDT 125 mL/hr 125 mL/hr $ New Bag/Syringe 12/26/2017 7:39 PM CDT 125 mL/hr 125 mL /hr dextrose IV 12.5-25 g 12.5-25 g (25-50 mL), Intravenous, PRN, Bedside Glucose less than 70 mg/dL -If NOT able to eat and/or NPO and with IV Access, Starting on Wed12/27/17 at 1306, Until [place] 12/30/17 at 1430, If NOT able to eat and/or NPO [...] 40 mg 40 mg, Subcutaneous, DAILY AT 0900, 365 doses, First dose on Wed12/26/17 at 0900, Last dose on Wed12/25/18 at 0900, (for prefilled syringes) do not expel air bubble from the syringe prior to the injection Remind Patient to not rub injection site. Could cause hematoma. erythromycin base (E-MYCIN) tablet 250 mg 250 mg, Oral, EVERY 6 HOURS, 28 doses, First dose on Wed12/29/17 at 1200, Last dose on Wed01/05/18 at 0600, DM gastroparesis, Indication for anti-infective therapy: Non-infectious indication $ Given 12/30/2017 5:39 AM CDT 250 mg $ Given 12/29/2017 11:58 PM CDT 250 mg $ Given 12/29/2017 6:23 PM CDT 250 mg famotidine (PEPCID) injection 20 mg 20 mg, Intravenous, NOW, 1 dose, On Wed12/26/17 at 0000, Dilute 2 mL of injection with 0.9% NaCl or D5W solution to a volume of 5 to 10 ml. Push over a period of at least 2 minutes. $ Given 12/26/2017 12:11 AM CDT 20 mg famotidine (PEPCID) injection 20 mg 20 mg, Intravenous, 2 TIMES DAILY, 4 doses, First dose on Wed12/26/17 at 0900, Last dose on Wed12/27/17 at 2100 $ Given 12/26/2017 7:40 PM CDT 20 mg $ Given 12/26/2017 8:02 AM CDT 20 mg glucagon (GLUCAGEN) injection 1 mg 1 mg, Intramuscular, PRN, Bedside Glucose less than 70 mg/dL - If NOT able to eat and/or NPO and withOUT IV Access, Starting on Wed12/27/17 at 1306, Until Wed12/30/17 at 1430, If NOT able to eat and/or NPO [...] does not have swallowing difficulties, Starting on Wed12/27/17 at 1306, Until Wed12/30/17 at 1430, If able to eat and does not [...] (NovoLOG) pen 0-12 Units 0-12 Units, Subcutaneous, EVERY 4 HOURS, First dose (after last modification) on Wed12/27/17 at 1200, Until Discontinued, . 150-200 = 2 unit 201-250 = 4 units 251-300 = 6 units 301-350 = 8 units 351-400 = 10 units GREATER than 400 = 12 units and call $ Given 12/27/2017 11:21 AM CDT 6 Units Abdominal Tissue insulin aspart (NovoLOG) pen 0-12 Units 0-12 Units, Subcutaneous, 3 TIMES DAILY WITH MEALS, First dose (after last modification) on Wed12/28/17 at 1800, Until Discontinued, . 150-200 = 1 unit 201-250 = 2 units 251-300 = 3 units 301-350 = 4 units 351-400 = 5 units GREATER than 400 = 6 units and call MD $ Given 12/28/2017 5:43 PM CDT 1 Units Right Arm insulin aspart (NovoLOG) pen 0-12 Units 0-12 Units, Subcutaneous, 4 TIMES DAILY - BEFORE MEALS AND AT BEDTIME, First dose (after last modification) on Wed12/29/17 at 0700, Until Discontinued, . 150-200 = 1 unit 201-250 = 2 units 251-300 = 3 units 301-350 = 4 units 351-400 = 5 units GREATER than 400 = 6 units and call MD $ Given 12/29/2017 12:19 PM CDT 1 Units Abd Left Lower Quadr ant $ Given 12/29/2017 8:45 AM CDT 2 Units Ri ght Arm insulin aspart (NovoLOG) pen 0-6 Units 0-6 Units, Subcutaneous, EVERY 4 HOURS, First dose (after last modification) on Wed12/29/17 at 1600, Until Discontinued, . 150-200 = 1 unit 201-250 = 2 units 251-300 = 3 units 301-350 = 4 units 351-400 = 5 units GREATER than 400 = 6 units and call MD $ Given 12/30/2017 4:07 AM CDT 1 Units Left Arm $ Given 12/29/2017 11:55 PM CDT 1 Units R ight Arm $ Given 12/29/2017 8:05 PM CDT 1 Units Ri ght Arm insulin glargine (LANTUS) pen 12 Units 12 Units, Subcutaneous, DAILY, 365 doses, First dose on Wed12/27/17 at 0500, Last dose on Wed12/26/18 at 0500, Obtain current Blood Glucose if necessary . WASTE DISPOSAL INSTRUCTIONS: Black Bin Disposal required. $ Given 12/27/2017 4:35 AM CDT 12 Units Abdominal Tissue insulin glargine (LANTUS) pen 12 Units 12 Units, Subcutaneous, DAILY, 365 doses, First dose on Wed12/28/17 at 1015, Last dose on Wed12/27/18 at 0900, Obtain current Blood Glucose if necessary . WASTE DISPOSAL INSTRUCTIONS: Black Bin Disposal required. $ Given 12/29/2017 8:46 AM CDT 12 Units Right Arm $ Given 12/28/2017 9:49 AM CDT 12 Units Ab dominal Tissue insulin glargine (LANTUS) pen 15 Units 15 Units, Subcutaneous, DAILY, 363 doses, First dose (after last modification) on Wed12/30/17 at 0900, Last dose on Wed12/27/18 at 0900, Obtain current Blood Glucose if necessary . WASTE DISPOSAL INSTRUCTIONS: Black Bin Disposal required. $ Given 12/30/2017 8:51 AM CDT 15 Units Right Arm insulin regular human (humuLIN R; novoLIN R) 100 Units in 0.9% NaCl 100 mL infusion 0-26.5 Units/hr (0-26.5 mL/hr), Intravenous, CONTINUOUS, Starting on Wed12/26/17 at 0145, Until Wed12/26/17 at 0403, Titrate Insulin Infusion per protocol based on the following weight range: 45-55.4 kg POC Glucose (mg/dL) POC glucose = 70-89 0 units/hr POC glucose = 90-99 0.1 units/hr POC glucose = 100-119 0.3 units/hr POC glucose = 120-139 0.6 units/hr POC glucose = 140-159 1 units/hr POC glucose = 160-179 2.2 units/hr POC glucose = 180-199 2.7 units/hr POC glucose = 200-219 3.3 units/hr POC glucose = 220-239 3.8 units/hr POC glucose = 240-259 4.4 units/hr POC glucose = 260-279 4.9 units/hr POC glucose = 280-299 5.5 units/hr POC glucose = 300-319 6 units/hr POC glucose = 320-339 6.6 units/hr POC glucose = 340-349 7.2 units/hr POC glucose = 350-379 7.7 units/hr POC glucose = 380-399 8.3 units/hr POC glucose greater than 400 8.8 units/hr Titrate as follows to achieve the target goal range (See order question) Bolus from the bag as directed in the bolus order . WASTE DISPOSAL INSTRUCTIONS: Black Bin Disposal required., Target POC glucose range: 140-180 mg/dL Rate Change 12/26/2017 3:44 AM CDT 2.7 Units/hr 2.7 mL/hr $ New Bag/Syringe 12/26/2017 2:36 AM CDT 5.5 Units/hr 5.5 mL/hr insulin regular human (humuLIN R; novoLIN R) 100 Units in 0.9% NaCl 100 mL infusion 0-26.5 Units/hr (0-26.5 mL/hr), Intravenous, CONTINUOUS, Starting on Wed12/26/17 at 0445, Until Wed12/27/17 at 0700, Titrate Insulin Infusion per protocol based on the following weight range: 45-55.4 kg POC Glucose (mg/dL) POC glucose = 70-89 0 units/hr POC glucose = 90-99 0.1 units/hr POC glucose = 100-119 0.3 units/hr POC glucose = 120-139 0.6 units/hr POC glucose = 140-159 1 units/hr POC glucose = 160-179 2.2 units/hr POC glucose = 180-199 2.7 units/hr POC glucose = 200-219 3.3 units/hr POC glucose = 220-239 3.8 units/hr POC glucose = 240-259 4.4 units/hr POC glucose = 260-279 4.9 units/hr POC glucose = 280-299 5.5 units/hr POC glucose = 300-319 6 units/hr POC glucose = 320-339 6.6 units/hr POC glucose = 340-349 7.2 units/hr POC glucose = 350-379 7.7 units/hr POC glucose = 380-399 8.3 units/hr POC glucose greater than 400 8.8 units/hr Titrate as follows to achieve the target goal range (See order question) Bolus from the bag as directed in the bolus order . WASTE DISPOSAL INSTRUCTIONS: Black Bin Disposal required., Target POC glucose range: 140-180 mg/dL $ New Bag/Syringe 12/27/2017 5:40 AM CDT 3.3 Units/hr 3.3 mL/hr $ New Bag/Syringe 12/27/2017 3:59 AM CDT 0.6 Units/hr 0.6 mL/hr $ New Bag/Syringe 12/27/2017 1:34 AM CDT 2.2 Units/hr 2.2 mL/hr insulin regular human (humuLIN R; novoLIN R) 100 Units in 0.9% NaCl 100 mL infusion 0-26.5 Units/hr (0-26.5 mL/hr), Intravenous, CONTINUOUS, Starting on Wed12/27/17 at 1345, Until Wed12/28/17 at 1415, Titrate Insulin Infusion per protocol based on the following weight range: 45-55.4 kg POC Glucose (mg/dL) POC glucose = 70-89 0 units/hr POC glucose = 90-99 0.1 units/hr POC glucose = 100-119 0.3 units/hr POC glucose = 120-139 0.6 units/hr POC glucose = 140-159 1 units/hr POC glucose = 160-179 2.2 units/hr POC glucose = 180-199 2.7 units/hr POC glucose = 200-219 3.3 units/hr POC glucose = 220-239 3.8 units/hr POC glucose = 240-259 4.4 units/hr POC glucose = 260-279 4.9 units/hr POC glucose = 280-299 5.5 units/hr POC glucose = 300-319 6 units/hr POC glucose = 320-339 6.6 units/hr POC glucose = 340-349 7.2 units/hr POC glucose = 350-379 7.7 units/hr POC glucose = 380-399 8.3 units/hr POC glucose greater than 400 8.8 units/hr Titrate as follows to achieve the target goal range (See order question) Bolus from the bag as directed in the bolus order . WASTE DISPOSAL INSTRUCTIONS: Black Bin Disposal required., Target POC glucose range: 140-180 mg/dL Rate Change 12/28/2017 9:49 AM CDT 2.2 Units/hr 2.2 mL/hr Rate Change 12/28/2017 8:06 AM CDT 0.6 Units/hr 0.6 mL/hr Titration/Assessment 12/28/2017 6:31 AM CDT 0.1 Units/hr 0 .1 mL/hr lactated ringers infusion ADS Med 1 dose, Starting on Wed12/27/17 at 1121, Until Wed12/27/17 at 1121, Laura Tilley*: cabinet override lactated ringers infusion at 150 mL/hr, Intravenous, CONTINUOUS, Starting on Wed12/27/17 at 1200, Until Wed12/27/17 at 1310 $ New Bag/Syringe 12/27/2017 11:21 AM CDT 150 mL/hr lactated ringers infusion at 150 mL/hr, Intravenous, CONTINUOUS, Starting on Wed12/29/17 at 0930, Until [place]ur[place] 12/30/17 at 0742 $ New Bag/Syringe 12/30/2017 4:06 AM CDT 150 mL/hr $ New Bag/Syringe 12/29/2017 9:44 PM CDT 150 mL /hr $ New Bag/Syringe 12/29/2017 2:56 PM CDT 150 mL /hr lactated ringers IV bolus 1,000 mL, at 3,750 mL/hr, Administer over 16 Minutes, ONCE, 1 dose, On Wed12/27/17 at 0815 $ New Bag/Syringe 12/27/2017 8:09 AM CDT 1,000 mL 999 mL/hr lactated ringers IV bolus 1,000 mL, at 3,750 mL/hr, Administer over 16 Minutes, ONCE, 1 dose, On Wed12/29/17 at 0915 $ New Bag/Syringe 12/29/2017 10:01 AM CDT 1,000 mL 3750 mL/hr magnesium sulfate 2 g in 50 mL bolus 2 g, at 25 mL/hr, Administer over 120 Minutes, Intravenous, ONCE, 1 dose, On Wed12/26/17 at 1215, Infuse at 1 gm/hr $ New Bag/Syringe 12/26/2017 12:56 PM CDT 2 g 25 mL/hr magnesium sulfate 2 g in 50 mL bolus 2 g, at 25 mL/hr, Administer over 120 Minutes, Intravenous, ONCE, 1 dose, On [place] 12/26/17 at 1915, Infuse at 1 gm/hr $ New Bag/Syringe 12/26/2017 7:39 PM CDT 2 g 25 mL/hr metoclopramide (REGLAN) injection 10 mg 10 mg, Intravenous, NOW, 1 dose, On 12/25/17 at 2030 $ Given 12/25/2017 8:25 PM CDT 10 mg metoclopramide (REGLAN) injection 10 mg 10 mg, Intravenous, EVERY 6 HOURS, 8 doses, First dose on Wed12/27/17 at 0830, Last dose on Wed12/29/17 at 0200 $ Given 12/29/2017 1:55 AM CDT 10 mg $ Given 12/28/2017 8:40 PM CDT 10 mg $ Given 12/28/2017 4:21 PM CDT 10 mg ondansetron (ZOFRAN) injection 4 mg 4 mg, Intravenous, NOW, 1 dose, On 12/25/17 at 1945 $ Given 12/25/2017 7:08 PM CDT 4 mg ondansetron (ZOFRAN) injection 4 mg 4 mg, Intravenous, EVERY 4 HOURS PRN, Nausea/Vomiting, Starting on Wed12/26/17 at 0414, Until [place] 12/30/17 at 1430 $ Given 12/27/2017 7:35 AM CDT 4 mg $ Given 12/26/2017 2:11 PM CDT 4 mg $ Given 12/26/2017 8:47 AM CDT 4 mg pantoprazole (PROTONIX) injection 40 mg 40 mg, Intravenous, 2 TIMES DAILY, 730 doses, First dose on Wed12/29/17 at 0930, Last dose on Wed12/28/18 at 2100, For every 40 mg of pantoprazole mix with 10 mL Normal Saline (final concentration = 4 mg/mL). Inject SLOWLY over 2 min. potassium chloride 40 mEq in 0.9% NaCl 270 mL bolus 40 mEq, at 67.5 mL/hr, Administer over 4 Hours, Intravenous, ONCE, 1 dose, On Wed12/27/17 at 0900 $ New Bag/Syringe 12/27/2017 8:09 AM CDT 40 mEq 67.5 mL/hr potassium chloride 40 mEq in 0.9% NaCl 270 mL bolus 40 mEq, at 67.5 mL/hr, Administer over 4 Hours, Intravenous, EVERY 4 HOURS, 2 doses, First dose on Wed12/28/17 at 1000, Last dose on Wed12/28/17 at 1400 $ New Bag/Syringe 12/28/2017 2:00 PM CDT 40 mEq 67.5 mL/hr $ New Bag/Syringe 12/28/2017 9:49 AM CDT 40 mEq 67.5 m L/hr potassium phosphate 10 mmol in dextrose 5 % 103.3 mL bolus 10 mmol, at 25.83 mL/hr, Administer over 4 Hours, Intravenous, ONCE, 1 dose, On Wed12/26/17 at 1300, 3 mmol phosphate = 4.4 mEq potassium $ New Bag/Syringe 12/26/2017 12:56 PM CDT 10 mmol 25.83 mL/hr potassium phosphate 30 mmol in dextrose 5 % 260 mL bolus 30 mmol, at 43.33 mL/hr, Administer over 6 Hours, Intravenous, ONCE, 1 dose, On 12/26/17 at 1915, 3 mmol phosphate = 4.4 mEq potassium $ New Bag/Syringe 12/26/2017 7:39 PM CDT 30 mmol 43.33 mL/hr potassium phosphate 30 mmol in dextrose 5 % 260 mL bolus 30 mmol, at 43.33 mL/hr, Administer over 6 Hours, Intravenous, ONCE, 1 dose, On 12/27/17 at 2000, 3 mmol phosphate = 4.4 mEq potassium $ New Bag/Syringe 12/27/2017 8:26 PM CDT 30 mmol 43.33 mL/hr sertraline (ZOLOFT) tablet 50 mg 50 mg, Oral, DAILY, 365 doses, First dose on [place] 12/30/17 at 0900, Last dose on Wed12/29/18 at 0900, Avoid concurrent administration with grapefruit juice $ Given 12/30/2017 8:40 AM CDT 50 mg documented in this encounter Active and Recently Administered Medications Times are shown in CDT. Scheduled Medication Order 12/28/2017 12/29/2017 12/30/2017 enoxaparin (LOVENOX) injection 40 mg 40 mg, Subcutaneous, DAILY AT 0900, 365 doses, First dose on 12/26/17 at 0900, Last dose on Wed12/25/18 at 0900, (for prefilled syringes) do not expel air bubble from the syringe prior to the injection Remind Patient to not rub injection site. Could cause hematoma. 0953 (Not Administered - Provider: Laura Tilley RN - Reason: Refused-Patient - Comment: patient aware of risks. aware.) 0846 (Not Administered - Provider: Bobbi Olivarez RN - Reason: Refused-Patient) 0842 (Not Administered - Provider: Tristan Martinez RN - Reason: Refused-Patient) erythromycin base (E-MYCIN) tablet 250 mg 250 mg, Oral, EVERY 6 HOURS, 28 doses, First dose on Wed12/29/17 at 1200, Last dose on Wed01/05/18 at 0600, DM gastroparesis, Indication for anti-infective therapy: Non-infectious indication 1259 ($ Given - Provider: oBbbi Olivarez RN)1823 ($ Given - Provider: Bobbi Olivarez RN)2358 ($ Given - Provider: Kathryn Mae RN) 0539 ($ Given - Provider: Kathryn Mae RN)1200 (Due) insulin aspart (NovoLOG) pen 0-12 Units (CANCELED) 0-12 Units, Subcutaneous, 3 TIMES DAILY WITH MEALS, First dose (after last modification) on Wed12/28/17 at 1800, Until Discontinued, . 150-200 = 1 unit 201-250 = 2 units 251-300 = 3 units 301-350 = 4 units 351-400 = 5 units GREATER than 400 = 6 units and call 4654 ($ Given - Provider: Laura Tilley RN) insulin aspart (NovoLOG) pen 0-12 Units (CANCELED) 0-12 Units, Subcutaneous, 4 TIMES DAILY - BEFORE MEALS AND AT BEDTIME, First dose (after last modification) on Wed12/29/17 at 0700, Until Discontinued, . 150-200 = 1 unit 201-250 = 2 units 251-300 = 3 units 301-350 = 4 units 351-400 = 5 units GREATER than 400 = 6 units and call [phone] ($ Given - Provider: Bobbi Olivarez RN)1216 ($ Given - Provider: Bobbi Olivarez RN) insulin aspart (NovoLOG) pen 0-6 Units 0-6 Units, Subcutaneous, EVERY 4 HOURS, First dose (after last modification) on Wed12/29/17 at 1600, Until Discontinued, . 150-200 = 1 unit 201-250 = 2 units 251-300 = 3 units 301-350 = 4 units 351-400 = 5 units GREATER than 400 = 6 units and call [phone] (Not Administered - Provider: Bobbi Olivarez RN - Reason: Per Administration Instructions)2004 ($ Given - Provider: Kathryn Mae RN)2355 ($ Given - Provider: Kathryn Mae RN) 0407 ($ Given - Provider: Kathryn Mae, RN)0831 (Not Administered - Provider: Tristan Martinez RN - Reason: Per Administration Instructions)1200 (Due) insulin glargine (LANTUS) pen 12 Units (CANCELED) 12 Units, Subcutaneous, DAILY, 365 doses, First dose on Wed12/28/17 at 1015, Last dose on Wed12/27/18 at 0900, Obtain current Blood Glucose if necessary . WASTE DISPOSAL INSTRUCTIONS: Black Bin Disposal required. 0949 ($ Given - Provider: Laura Tilley RN) 0846 ($ Given - Provider: Bobbi Olivarez RN) insulin glargine (LANTUS) pen 15 Units 15 Units, Subcutaneous, DAILY, 363 doses, First dose (after last modification) on Wed12/30/17 at 0900, Last dose on Wed12/27/18 at 0900, Obtain current Blood Glucose if necessary . WASTE DISPOSAL INSTRUCTIONS: Black Bin Disposal required. 0851 ($ Given - Provider: Tristan Martinez, RN) lactated ringers IV bolus (COMPLETED) 1,000 mL, at 3,750 mL/hr, Administer over 16 Minutes, ONCE, 1 dose, On Wed12/29/17 at 0915 1001 ($ New Bag/Syringe - Provider: Bobbi Olivarez RN)1455 (Stopped - Provider: Bobbi Olivarez RN) metoclopramide (REGLAN) injection 10 mg () 10 mg, Intravenous, EVERY 6 HOURS, 8 doses, First dose on Wed12/27/17 at 0830, Last dose on Wed12/29/17 at 0200 0210 (Not Administered - Provider: Мария Chavarria RN - Reason: Refused-Patient)0955 (Not Administered - Provider: Laura Tilley RN - Reason: Refused-Patient)1621 ($ Given - Provider: Laura Tilley RN)2040 ($ Given - Provider: Octavia Muller, MARY) 0155 ($ Given - Provider: Octavia Muller, MARY) pantoprazole (PROTONIX) injection 40 mg 40 mg, Intravenous, 2 TIMES DAILY, 730 doses, First dose on Wed12/29/17 at 0930, Last dose on Wed12/28/18 at 2100, For every 40 mg of pantoprazole mix with 10 mL Normal Saline (final concentration = 4 mg/mL). Inject SLOWLY over 2 min. 1001 (Not Administered - Provider: Bobbi Olivarez RN - Reason: Refused-Patient)2005 (Not Administered - Provider: Kathryn Mae RN - Reason: Refused-Patient) 0848 (Not Administered - Provider: Tristan Martinez RN - Reason: Refused-Patient) potassium chloride 40 mEq in 0.9% NaCl 270 mL bolus (COMPLETED) 40 mEq, at 67.5 mL/hr, Administer over 4 Hours, Intravenous, EVERY 4 HOURS, 2 doses, First dose on Wed12/28/17 at 1000, Last dose on Wed12/28/17 at 1400 0949 ($ New Bag/Syringe - Provider: Laura Tilley RN)1359 (Stopped - Provider: Laura Tilley RN)1400 ($ New Bag/Syringe - Provider: Laura Tilley RN)1800 (Stopped - Provider: Laura Tilley RN) sertraline (ZOLOFT) tablet 50 mg 50 mg, Oral, DAILY, 365 doses, First dose on Wed12/30/17 at 0900, Last dose on Wed12/29/18 at 0900, Avoid concurrent administration with grapefruit juice 0840 ($ Given - Provider: Tristan Martinez RN) Continuous Medication Order 12/28/2017 12/29/2017 12/30/2017 dextrose 5 % and 0.45% NaCl infusion () at 150 mL/hr, Intravenous, CONTINUOUS, Starting on Wed12/27/17 at 1345, Until Wed12/28/17 at 1200 0321 ($ New Bag/Syringe - Provider: Мария Chavarria RN)1046 ($ New Bag/Syringe - Provider: Laura Tilley RN) insulin regular human (humuLIN R; novoLIN R) 100 Units in 0.9% NaCl 100 mL infusion (CANCELED) 0-26.5 Units/hr (0-26.5 mL/hr), Intravenous, CONTINUOUS, Starting on Wed12/27/17 at 1345, Until Wed12/28/17 at 1415, Titrate Insulin Infusion per protocol based on the following weight range: 45-55.4 kg POC Glucose (mg/dL) POC glucose = 70-89 0 units/hr POC glucose = 90-99 0.1 units/hr POC glucose = 100-119 0.3 units/hr POC glucose = 120-139 0.6 units/hr POC glucose = 140-159 1 units/hr POC glucose = 160-179 2.2 units/hr POC glucose = 180-199 2.7 units/hr POC glucose = 200-219 3.3 units/hr POC glucose = 220-239 3.8 units/hr POC glucose = 240-259 4.4 units/hr POC glucose = 260-279 4.9 units/hr POC glucose = 280-299 5.5 units/hr POC glucose = 300-319 6 units/hr POC glucose = 320-339 6.6 units/hr POC glucose = 340-349 7.2 units/hr POC glucose = 350-379 7.7 units/hr POC glucose = 380-399 8.3 units/hr POC glucose greater than 400 8.8 units/hr Titrate as follows to achieve the target goal range (See order question) Bolus from the bag as directed in the bolus order . WASTE DISPOSAL INSTRUCTIONS: Black Bin Disposal required., Target POC glucose range: 140-180 mg/dL 0139 (Current Rate - Provider: Armando Valenzuela, RN)0313 ($ New Bag/Syringe - Provider: Мария Chavarria, RN)0631 (Titration/Assessment - Provider: Мария Chavarria, RN)0806 (Rate Change - Provider: Laura Tilley RN - Comment: bs 121)0949 (Rate Change - Provider: Laura Tilley RN) lactated ringers infusion (CANCELED) at 150 mL/hr, Intravenous, CONTINUOUS, Starting on Wed12/29/17 at 0930, Until Wed12/30/17 at 0742 1456 ($ New Bag/Syringe - Provider: Bobbi Olivarez, MARY)2144 ($ New Bag/Syringe - Provider: Мария Chavarria, RN) 0406 ($ New Bag/Syringe - Provider: Kathryn Mae, MARY)0745 (Stopped - Provider: Tristan Martinez, RN) PRN Medication Order 12/28/2017 12/29/2017 12/30/2017 acetaminophen (TYLENOL) tablet 650 mg 650 mg, Oral, EVERY 4 HOURS PRN, Fever, Mild Pain, Starting on Wed12/26/17 at 0416, Until Nurys 12/30/17 at 1430 dextrose IV 12.5-25 g 12.5-25 g (25-50 mL), Intravenous, PRN, Bedside Glucose less than 70 mg/dL -If NOT able to eat and/or NPO and with IV Access, Starting on Wed12/27/17 at 1306, Until Nurys 12/30/17 at 1430, If NOT able to eat and/or NPO [...] NPO and withOUT IV Access, Starting on Wed12/27/17 at 1306, Until Nurys 12/30/17 at 1430, If NOT able to eat and/or NPO [...] does not have swallowing difficulties, Starting on Wed12/27/17 at 1306, Until Nurys 12/30/17 at 1430, If able to eat and does not [...] 80 mg/dl. NOTIFY PROVIDER OF HYPOGLYCEMIC EVENT. ondansetron (ZOFRAN) injection 4 mg 4 mg, Intravenous, EVERY 4 HOURS PRN, Nausea/Vomiting, Starting on 12/26/17 at 0414, Until Nurys 12/30/17 at 1430 documented in this encounter Care Teams Corporate Claims Examiner Relationship Specialty Start Date End Date Jolanta Freeman MD PCP - General Pediatrics 05/24/13 documented as of this encounter
--- OUTSIDE RECORDS SUMMARY | 2024-05-10 18:53 | XMS_ITS | Encounter Summary ---
Author Organization [facility] Address [address] [facility] [place] [address] Phone Care Team Providers Care Deliverer Merchandise Name Role Phone Carrie Joseph Primary Care Provider [phone] Naomi Sanches MD Unavailable Reason for Visit * Reason Comments Diabetes Mellitus Encounter Details Date Type Department Care Team (Late st Contact Info) Description 02/06/2022 1:00 PM CDT Office Visit [facility] - Endocrinology - [place] [address] [place] [address] Naomi Sanches MD [address] [phone] Type 1 diabetes mellitus without complication (HCC) (Primary Dx); Hypoglycemia; Overweight Discharge Disposition: Discharged to home or Selfcare [...] suspected to have Coronavirus/COVID-19? No / Unsure 02/06/2022 1:00 PM CDT documented as of this encounter Last Filed Vital Signs Vital Sign Reading Time Taken Comments Blood Pressure 108/72 02/06/2022 1:05 PM CDT Pulse 98 02/06/2022 1:05 PM CDT Temperature 36.8 ??C (98.2 ??F) 02/06/2022 1:05 PM CD T Respiratory Rate 18 02/06/2022 1:05 PM CDT Oxygen Saturation 98% 02/06/2022 1:05 PM CDT Inhaled Oxygen Concentration - - Weight 71.2 kg (157 lb) 02/06/2022 1:05 PM CDT Height 157.5 cm (5' 2 ) 02/06/2022 1:05 PM CDT Body Mass Index 28.72 02/06/2022 1:05 PM CDT documented in this encounter Patient Instructions * Patient Instructions* Naomi Sanches MD - 02/06/2022 1:00 PM CDT Please??take Lantus 25??units at bedtime ?? Please??continue??Humalog??1 unit for 8??gm of CHO before each meal ?? Please use correctional factor insulin before each meal as directed ?? Please monitor blood sugar before each meal and at bedtime ?? Please??bring??blood sugar log for review??at the next visit ?? Contact Endocrinology Clinic for low blood sugar events ?? Follow up visit in??3??months ?? RULE OF 15: ??If you have signs/symptoms of low blood sugar (hypoglycemia),and/or your blood sugar is less than 70 mg/dl, you may choose one of the below treatments (~15 gm of carbohydrate):glucose tablets or 1?2 glass (4 oz.) of apple juice or 1/2 glass (4 oz.) of clear regular soda and recheck blood sugar in 15 minutes, If not above 80 mg/dl, retreat treatment until blood sugar is above 80 mg/dl. Once blood sugar is above 80-90 mg/dL, please give insulin as scheduled. ?? Look at your feet, top and bottom every morning. If you have any signs of infection, such as:areas,change in feeling or temperature, swelling, blisters, or cracks in the skin, call your doctor rightaway. Apply lotion to dry skin areas to prevent cracks. Keep the skin between your toes clean and dry. ?? CORRECTION FACTOR: 1:30 ?? BLOOD GLUCOSE (SUGAR) CORRECTION FACTOR: 1:30 HUMALOG/NOVOLOG [...] 400 +9 UNITS ABOVE 400 +10 UNITS ? documented in this encounter Progress Notes * Naomi Sanches MD - 02/06/2022 1:00 PM CDT Subject&Objective Karina Fuchs is a 26-year-old woman who comes to the Endocrinology office to discuss management of type 1 diabetes mellitus. The patient's diabetes is complicated by gastroparesis. Other pertinent health history includes DKA, cyclic vomiting, and overweight. The patient was initially diagnosed with diabetes approximately 11 years ago. The patient had had 3 ER visits &hospitalization with nausea and vomiting since the last officevisit. Currently, Ms. Fuchs takes Lantus 25 units at bedtime and Humalog 1 unit for every 8 gm of carb before each meal for management of hyperglycemia. The patient reports occasional, mild hypoglycemic events with intact symptoms of hypoglycemia awareness. The patient denied severe low blood sugar events requiring third green party intervention. Unfortunately, the patient did not bring her glucose meter for download or a logbook for review at today's office appointment. Ms. Fuchs reported that her blood sugars have been running mostly between 90 and 140 mg/dL. Hemoglobin A1c obtained in January 2022 was 6.6%, improved from the previous measurement of 7.6% obtained in October 2021. Physical Exam Vitals: 02/06/22 1305 BP: 108/72 BP Location: Right Arm BP Position: Sitting BP Cuff Size: Regular Pulse: 98 Resp: 18 Temp: 98.2 ??F (36.8 ??C) TempSrc: Temporal SpO2: 98% Weight: 157 lb (71.2 kg) Height: 5' 2 (1.575 m) Constitutional: appears well-developed and well-nourished. No acute distress. Head: Normocephalic and atraumatic. Cardiovascular: Normal rate and regular rhythm Pulmonary/Chest: Effort normal and breath sounds normal Abdominal: No lipohypertrophy at injection sites Assessment and Plan Karina Fuchs is a young woman with type 1 diabetes mellitus whose overall glycemic control was reasonable based on both review of her capillary blood glucose report and hemoglobin A1c measurement (checked in January 2022). Treatment consideration and hypoglycemic precaution were discussed with her at some length. She will continue current regimen for management of hyperglycemia. Arrangement will be made for T russel with Control IQ for better glycemic control. The patient will return for office reevaluation in 3 months. PLAN: 1.Take Lantus 25 units at bedtime 2. Take Humalog 1 unit for every 8 gm of CHO before each meal 3. Correctional factor insulin dosed at 1:30 if CBG is > 140 mg/dl 4. Monitor blood sugar QAC/QHS 5. Bring CBG log for review 6. Contact Endocrinology Clinic for low blood sugar events 7. Apply for an insulin pump w/ Dexcom sensor 8. RTC in 3 months Hypoglycemia PLAN: 1. Consistent CHO diet 2. Rule of 15 Overweight PLAN: 1. Low carb and calorie diet 2. Avoid snack and beverage between meal and at bedtime Total time spent on this encounter on this date of service, including pre-visit review of separately obtained history, [id number] interaction performing medically appropriate physical exam, patientcounseling/education, interpretation of diagnostic results, care coordination and documentation was30 minute Naomi Sanches MD 02/06/2022 documented in this encounter Plan of Treatment Not on file documented as of this encounter Visit Diagnoses Diagnosis Type 1 diabetes mellitus without complication (HCC)- Primary Type I (juvenile type) diabetes mellitus without mention of complication, not stated as uncontrolled Hypoglycemia Hypoglycemia, unspecified Overweight documented in this encounter Care Teams Deliverer Merchandise Relationship Specialty Start Date End Date Carrie Joseph PA [address] [address] PCP - General Adult Medicine 11/11/18 Naomi Sanches MD [address] [address] Consulting Physician Endocrinology 05/21/20 documented as of this encounter
--- OUTSIDE RECORDS SUMMARY | 2024-05-10 18:53 | XMS_ITS | Encounter Summary ---
Author Organization [employer] Care Team Providers Care Specialty Therapist Name Role Phone Carrie Joseph Primary Care Provider [phone] Naomi Sanches MD Unavailable Encounter Details Date Type Department Care Team (Latest Contact Info) Description 07/02/2023 Travel Social History Tobacco Use Types Packs/Day [...] on filedocumented in this encounter Care Teams Specialty Therapist Relationship Specialty Start Date End Date Carrie Joseph PA [address] [facility] [address] [place], [place] [phone] PCP - General Adult Medicine 11/11/18 Naomi Sanches MD #[address] [address] Consulting Physician Endocrinology 05/21/20 documented as of this encounter
--- OUTSIDE RECORDS SUMMARY | 2024-05-10 18:53 | XMS_ITS | Encounter Summary ---
Author Organization [facility] Address [address] [facility] [place] [address] Phone Care Team Providers Care Innersole Maker Name Role Phone Carrie Joseph Primary Care Provider [phone] Naomi Sanches MD Unavailable Reason for Visit * Reason Comments Medication Refill Encounter Details Date Type Department Care Team (Late st Contact Info) Description 04/16/2023 Refill [facility] - Endocrinology - [place] [address] [place] [address] Naomi Sanches MD #[address] [phone] Medication Refill Social History Tobacco [...] Telephone Encounter - Naomi Sanches MD - 04/19/2023 5:15 PM CST Rx sent RACTIVE PROJECT MANAGER * Telephone Encounter - Charisma Carrington RN - 04/19/2023 1:53 PM INTERACTIVE PROJECT MANAGER Requested Prescriptions Pending Prescriptions Disp Refills ??? insulin lispro (HumaLOG) 100 UNIT/ML Solution [Pharmacy Med Name: INSULIN LISPRO 100U/ML VIAL 10ML] 60 mL Sig: INJECT UP TO 60 UNITS UNDER THE SKIN PER DAY PER INSULIN PUMP SETTINGS Next appt: Message sent to schedule follow up. RACTIVE PROJECT MANAGER documented in this encounter Plan of Treatment Not on file documented as of this encounter Visit Diagnoses Not on filedocumented in this encounter Care Teams Innersole Maker Relationship Specialty Start Date End Date Carrie Joseph PA [address] [address] PCP - General Adult Medicine 11/11/18 Naomi Sanches MD #[address] [phone] Consulting Physician Endocrinology 05/21/20 documented as of this encounter
--- OUTSIDE RECORDS SUMMARY | 2024-05-10 18:53 | XMS_ITS | Encounter Summary ---
Author Organization [employer] Care Team Providers Care Hr Analyst Name Role Phone Carrie Joseph Primary Care Provider [phone] Naomi Sanches MD Unavailable Encounter Details Date Type Department Care Team (Latest Contact Info) Description 05/22/2022 Travel Social History Tobacco Use Types Packs/Day [...] Coronavirus/COVID-19? No / Unsure 05/22/2022 2:10 PM OFFICE COPY SELECTOR documented as of this encounter Plan of Treatment Not on file documented as of this encounter Visit Diagnoses Not on filedocumented in this encounter Care Teams Hr Analyst Relationship Specialty Start Date End Date Carrie Joseph PA [address] [facility] [address] [place] [address] PCP - General Adult Medicine 11/11/18 Naomi Sanches MD #[address] [phone] Consulting Physician Endocrinology 05/21/20 documented as of this encounter
--- OUTSIDE RECORDS SUMMARY | 2024-05-10 18:53 | XMS_ITS | Encounter Summary ---
Author Organization [employer] Care Team Providers Care Pit Supervisor Name Role Phone Carrie Joseph Primary Care Provider [phone] Naomi Sanches MD Unavailable Encounter Details Date Type Department Care Team (Latest Contact Info) Description 06/01/2023 Travel Social History Tobacco Use Types Packs/Day [...] on filedocumented in this encounter Care Teams Pit Supervisor Relationship Specialty Start Date End Date Carrie Joseph PA [address] [phone] PCP - General Adult Medicine 11/11/18 Naomi Sanches MD #[address] [address] Consulting Physician Endocrinology 05/21/20 documented as of this encounter
--- OUTSIDE RECORDS SUMMARY | 2024-05-10 18:53 | XMS_ITS | Encounter Summary ---
Author Organization [facility] Address [address] [facility] [place] [address] Phone Care Team Providers Care Crm Consultant Name Role Phone Carrie Joseph Primary Care Provider [phone] Naomi Sanches MD Unavailable Reason for Visit * Reason Comments Medication Refill Encounter Details Date Type Department Care Team (Late st Contact Info) Description 02/12/2022 Refill [facility] - Endocrinology - [place] [address] [place] [address] Naomi Sanches MD #[address] [phone] Medication Refill Social History Tobacco [...] PM CDT documented as of this encounter Miscellaneous Notes * Telephone Encounter - Naomi Sanches MD - 02/12/2022 3:35 PM CDT Rx sent * Telephone Encounter - Charisma Carrington RN - 02/12/2022 1:27 PM CDT Requested Prescriptions Pending Prescriptions Disp Refills ??? Insulin Lispro (HumaLOG KwikPen) 200 UNIT/ML Solution Pen-injector [Pharmacy Med Name: HUMALOG 200 U/ML KWIKPEN INJ 3ML] 30 mL 1 Sig: INJECT 1 UNIT PER 7-8 GRAMS OF CARB BEFORE EACH MEAL. ISF OF 1:40 IF>140 MG/DL. UP TO 50 UNITS DAILY Next appt: 05/12/2022 documented in this encounter Plan of Treatment Not on file documented as of this encounter Visit Diagnoses Not on filedocumented in this encounter Care Teams Crm Consultant Relationship Specialty Start Date End Date Carrie Joseph PA [address] [address] PCP - General Adult Medicine 11/11/18 Naomi Sanches MD #[address] [phone] Consulting Physician Endocrinology 05/21/20 documented as of this encounter
--- OUTSIDE RECORDS SUMMARY | 2024-05-10 18:53 | XMS_ITS | Encounter Summary ---
Author Organization [employer] Care Team Providers Care General Car Supervisor Yard Name Role Phone Carrie Joseph Primary Care Provider [phone] Naomi Sanches MD Unavailable Encounter Details Date Type Department Care Team (Latest Contact Info) Description 02/06/2022 Travel Social History Tobacco Use Types Packs/Day [...] PM CDT documented as of this encounter Plan of Treatment Not on file documented as of this encounter Visit Diagnoses Not on filedocumented in this encounter Care Teams General Car Supervisor Yard Relationship Specialty Start Date End Date Carrie Joseph PA [address] [place] [address] PCP - General Adult Medicine 11/11/18 Naomi Sanches MD #[address] [phone] Consulting Physician Endocrinology 05/21/20 documented as of this encounter
--- OUTSIDE RECORDS SUMMARY | 2024-05-10 18:53 | XMS_ITS | Encounter Summary ---
Author Organization [facility] Address [address] [facility] [place] [address] Phone Care Team Providers Care Washing Machine Striper Name Role Phone Carrie Joseph Primary Care Provider [phone] Naomi Sanches MD Unavailable Reason for Visit * Reason Comments Diabetes Mellitus Encounter Details Date Type Department Care Team (Late st Contact Info) Description 09/01/2023 9:45 AM CDT Office Visit [facility] - Endocrinology - [place] [address] [place] [address] Naomi Sanches MD #[address] [phone] Type 1 diabetes mellitus without complication (HCC) (Primary Dx); Hypoglycemia; Insulin pump titration; Nausea Discharge Disposition: Discharged to home or [...] Sign Reading Time Taken Comments Blood Pressure 114/68 09/01/2023 9:44 AM CDT Pulse 94 09/01/2023 9:44 AM CDT Temperature 36.3 ??C (97.4 ??F) 09/01/2023 9:44 AM CD T Respiratory Rate 18 09/01/2023 9:44 AM CDT Oxygen Saturation 98% 09/01/2023 9:44 AM CDT Inhaled Oxygen Concentration - - Weight 76.2 kg (168 lb) 09/01/2023 9:44 AM CDT Height 157.5 cm (5' 2 ) 09/01/2023 9:44 AM CDT Body Mass Index 30.73 09/01/2023 9:44 AM CDT documented in this encounter Patient Instructions * Patient Instructions* Naomi Sanches MD - 09/01/2023 9:45 AM CDT Please monitor blood sugar before [...] Progress Notes * Andie Acosta RMA - 09/01/2023 9:45 AM CDT Attached media from the original note were not included. PUMP DOWNLOAD * Naomi Sanches MD - 09/01/2023 9:45 AM CDT Subject&Objective Karina Fuchs is a 28-year-old woman who comes to the Endocrinology office to discuss management of type 1 diabetes mellitus. Other pertinent health history includes cyclic vomiting and DKA. The patient was initially diagnosed with diabetes [...] symptoms of hypoglycemia awareness. Most episodes occur in the evening and at night. The patient denied severe low blood sugar events requiring third constitution party intervention. Review of her insulin pump/CGM download for the past four weeks showed morning values in the range of 140 to 180 mg/dL, lunch values ranging from 70 to 200 mg/dL, dinner values in the range of 70 to 180 mg/dL, and bedtime values ranging from 50 to 170 mg/dL. Average blood glucose was 139 mg/dL +/-54. Total daily insulin requirement was ~55 units/day (Basal 38 vs Bolus 62). Hemoglobin A1c obtained by POC testing today was 5.7%, stable from the previous measurement of 5.3% obtained in May 2023. Physical Exam Vitals: 09/01/23 0944 BP: 114/68 BP Location: Right Arm BP Position: Sitting BP Cuff Size: Regular Pulse: 94 Resp: 18 Temp: 97.4 ??F (36.3 ??C) TempSrc: Temporal SpO2: 98% Weight: 168 lb (76.2 kg) Constitutional: appears well-developed and well-nourished. No acute distress. Head: Normocephalic and atraumatic. Cardiovascular: Normal rate and regular rhythm Pulmonary/Chest: Effort normal and breath sounds normal Lab Results Component Value Date HGBA1C 5.7 09/01/2023 Her insulin pump w/ CGM download was reviewed. Assessment and Plan Assessment Karina Fuchs is a young woman with type 1 diabetes mellitus whose glycemic control was not optimal based on review of her CGM record. Her hemoglobin A1c is well below the patient's [employer] treatment target of less than 7%. Low blood sugar events in the evening and at night indicate that there is room to reduce basal insulin. Treatment consideration and hypoglycemic precaution were discussed with her at some length. She agreed to decrease basal rate to 0.8 units an hour at 8:00 am and 7:00 pm. The patient will return for office reevaluation in 3 months. PLAN: 1. Change basal rate to 0.8 units an hour at 8:00 am and 7:00 pm 2. Monitor blood sugar QAC/QHS 3. Give bolus insulin using the Bolus Wizard 4. Bring CBG log for review 5. Contact Endocrinology Clinic for low blood sugar events 6. RTC in 3 months Hypoglycemia PLAN: Consistent CHO diet Rule of 15 PMS and cyclic vomiting PLAN: PRN antiemetics Defer it to OBGYN Naomi Sanches MD 09/01/2023 documented in this encounter Plan of Treatment Not on file documented as of this encounter Procedures Procedure Name Priority Date/Time Associated Diagnosis Comments POCT GLYCOSYLATED HEMOGLOBIN Routine 09/01/2023 9:49 AM CDT Type 1 diabetes mellitus without complication (HCC) documented in this encounter Results * POCT GLYCOSYLATED HEMOGLOBIN (09/01/2023 9:49 AM CDT) HGB-A1C 5.7 4 - 6 % Blood 09/01/2023 9:49 AM CDT us Naomi Sanches MD POINT OF CARE TESTING (MANUAL) F inal Result documented in this encounter Visit Diagnoses Diagnosis Type 1 diabetes mellitus without complication (HCC)- Primary Type I (juvenile type) diabetes mellitus without mention of complication, not stated as uncontrolled Hypoglycemia Hypoglycemia, unspecified Insulin pump titration Fitting and adjustment of insulin pump Nausea Nausea alone documented in this encounter Care Teams Washing Machine Striper Relationship Specialty Start Date End Date Carrie Joseph PA [address] [facility] [address] [place] [address] PCP - General Adult Medicine 11/11/18 Naomi Sanches MD #[address] [id number] Consulting Physician Endocrinology 05/21/20 documented as of this encounter
--- OUTSIDE RECORDS SUMMARY | 2024-05-10 18:54 | XMS_ITS | Encounter Summary ---
Author Organization [facility] Address [address] [facility] [place] [address] Phone Care Team Providers Care System Auditor Name Role Phone Carrie Joseph Primary Care Provider [phone] Reason for Visit * Reason Comments Diabetes Mellitus Follow up Encounter Details Date Type Department Care Team (Late st Contact Info) Description 11/16/2019 1:30 PM CDT Office Visit [facility] - Endocrinology - [place] [address] [place] [id number] Naomi Sanches MD [address] [phone] Type 1 diabetes mellitus without complication (HCC) (Primary Dx); Hypoglycemia; Class 1 obesity due to excess calories with serious comorbidity and body mass index (BMI) of 32.0 to 32.9 in adult Discharge Disposition: Discharged to home or Selfcare Social History Tobacco Use Types Packs/Day Years Used Date Smoking Tobacco: Never Smokeless Tobacco: Never Tobacco Cessation:Counseling Given: No Alcohol Use Standard Drinks/Week Comments No 0 (1 standard drink = 0.6 oz pur e alcohol) Sexually Active Control Partners Comments Yes Male [...] have Coronavirus / COVID-19? No / Unsure 11/16/2019 1:28 PM CDT documented as of this encounter Last Filed Vital Signs Vital Sign Reading Time Taken Comments Blood Pressure 104/64 11/16/2019 1:36 PM CDT Pulse 110 11/16/2019 1:36 PM CDT Temperature 36.3 ??C (97.3 ??F) 11/16/2019 1:36 PM CD T Respiratory Rate 16 11/16/2019 1:36 PM CDT Oxygen Saturation 98% 11/16/2019 1:36 PM CDT Inhaled Oxygen Concentration - - Weight 77.1 kg (170 lb) 11/16/2019 1:36 PM CDT Height 154.9 cm (5' 1 ) 11/16/2019 1:36 PM CDT Body Mass Index 32.12 11/16/2019 1:36 PM CDT documented in this encounter Patient Instructions * Patient Instructions* Naomi Sanches MD - 11/16/2019 1:30 PM CDT Please take??Basaglar 10??units at bedtime ?? Please take Humalog 1 unit for 7 gm of CHO before each meal ?? Please use correctional factor insulin before each meal as directed ?? Please monitor blood sugar before each meal and at bedtime ?? Please??bring??blood sugar log for review at the next visit ?? Contact Endocrinology Clinic for low blood sugar events ?? Follow up visit in??1 month ?? RULE OF 15: ??If you have [...] toes clean and dry. ?? CORRECTION FACTOR: ??1:40 ?? BLOOD GLUCOSE (SUGAR) CORRECTION FACTOR: ??1:40?? HUMALOG/NOVOLOG UNDER 70 TREAT LOW, USE RULE OF 15 ?71 - 140 ??NO CORRECTIONAL INSULIN NEEDED 141 - 180 ??+1 UNIT 181 - 220 ??+2 UNITS 221 - 260 ??+3 UNITS 261 - 300 ??+4 UNITS 301 - 320 ??+5 UNITS 321 - 360 ??+6 UNITS 361 - 400 ??+7 UNITS ABOVE 400 ??+8 UNITS ? documented in this encounter Progress Notes * Eliane Christensen CMA - 11/16/2019 1:30 PM CDT Patient was seen in office today and finger stick was obtained on left middle finger for A1C, Patient tolerated well. * Naomi Sanches MD - 11/16/2019 1:30 PM CDT CC: Hyperglycemia Karina Fuchs is a 24-year-old woman who comes to the Endocrinology office to discuss management of type 1 diabetes mellitus. The patient's diabetes is complicated by gastroparesis. Other pertinent health history includes DKA. The patient was initially diagnosed with diabetes approximately 10 years ago. Currently, Ms. Fuchs takes Lantus 10 units at bedtime and Humalog 1 unit for every 8 gm of CHO before each meal for management of hyperglycemia. The patient reports infrequent, mild hypoglycemic events with intact symptoms of hypoglycemia awareness. The patient denied severe low blood sugar events r equiring third green party intervention. Unfortunately, the patient did not bring her glucose meter for download or a logbook for review at today's office appointment. Ms Fuchs reports (checks 4 times a day) morning values in the range of 120 to 140 mg/dL, lunch values ranging from 120 to 170 mg/dL, dinner values in the range of 100 to 170 mg/dL, and bedtime values ranging from 100 to 120 mg/dL. Ms. Fuchs gained approximately 40 lb for the past 6 months. Hemoglobin A1c obtained by POC testing today was 9.0%, increased from the previous measurement of 7.7% obtained in May 2019. ?? Diabetes related complication surveillance 1. No history of diabetic retinopathy - the last dilated eye exam was in January 2018 2. No symptoms of peripheral sensory neuropathy 3. Urine microalbumin/creatinine ratio - not available 4. LDL - not available 5. No history of macrovascular disease Review of Systems Constitutional: Negative for activity change, appetite change. (+) weight gain HENT: Negative for congestion and sinus pressure. Eyes: Negative for pain and visual disturbance. Respiratory: Negative for cough and shortness of breath. Cardiovascular: Negative for chest pain and palpitations. Gastrointestinal: Negative for diarrhea, constipation and abdominal distention. Endocrine: Negative for polydipsia, polyphagia and polyuria. Past Medical History Positives Diagnosis Date ??? Diabetes mellitus (HCC) ??? Gastroparesis Past Surgical History: Procedure Laterality Date ??? SECTION ??? TONSILLECTOMY Vitals: 11/16/19 1336 BP: 104/64 BP Location: Left Arm BP Position: Sitting BP Cuff Size: Regular Pulse: 110 Resp: 16 Temp: 97.3 ??F (36.3 ??C) TempSrc: Tympanic SpO2: 98% Weight: 170 lb (77.1 kg) Height: 5' 1 (1.549 m) Objective: Physical Exam Constitutional: appears well-developed and well-nourished. No acute distress. Head: Normocephalic and atraumatic. Eyes: EOM are normal, Not icteric Neck: Normal range of motion, Neck supple, No noticeable or palpable swelling, redness or rash Lymph Node: No cervical, clavicular, or posterior auricular lymphadenopathy Cardiovascular: Normal rate and regular rhythm, No JVD Pulmonary/Chest: Effort normal and breath sounds normal, No use of accessory muscle, No crackles orwheezing Abdominal: Soft, and not tender, Normal bowel sound, No lipohyperthrophy at injection sites Musculoskeletal: Normal range of motion, No edema, No swollen or erythematous joints, No cyanosis or clubbing Neurological: Alert and oriented to person, place, and time, CN 2-12 grossly intact Skin: Skin is warm and dry, No rash noted. Psychiatric: Normal mood and affect. Judgment normal. Intact memory for recent and remote events DIAGNOSTIC DATA: Hb A1c checked by POC testing tod9ay was 9.0%. Lab Results Component Value Date HGBA1C 7.7 (A) 05/08/2019 HGBA1C 10.9 (H) 01/03/2017 Lab Results Component Value Date HEMATOCRIT 41.3 07/21/2017 Lab Results Component Value Date CREATININE 0.40 (L) 11/08/2017 GFRNA >60 11/08/2017 CALCIUM 9.9 11/08/2017 SGPTALT 9 07/21/2017 Lab Results Component Value Date SODIUM 134 11/08/2017 POTASSIUM 4.7 11/08/2017 CHLORIDE 94 (L) 11/08/2017 CO2VEN 26 11/08/2017 MAGNESIUM 1.7 (L) 02/06/2017 Assessment and Plan Karina Fuchs is a young woman with type 1 diabetes mellitus whose glycemic control was suboptimalbased on both review of her capillary blood glucose report and today's hemoglobin A1c measurement. In particular, hemoglobin A1c is well above the patient's [place] [employer] treatment target of less than 7%. Treatment consideration and insulin pump w/ CGM were discussed with her at some length. She agreed to change ICR to 1:7 before each meal and snack for better glycemic control. Ms. Fuchs will check blood sugar consistently before each meal and at bedtime. She will then bring these results for review at the next visit. The patient will return for office reevaluation in 1 month. PLAN: 1. Take Basasglar 12 units at bedtime 2. Take Humalog 1 unit for every 7 gm of CHO before each meal 3. Correctional factor insulin dosed at 1:40 if CBG is > 140 mg/dl 4. Monitor blood sugar QAC/QHS 5. Bring CBG log for review 6. Contact Endocrinology Clinic for low blood sugar events 7. Apply a CGM and new insulin pump 8. RTC in 1 month Hypoglycemia PLAN: 1. Consistent CHO diet 2. Rule of 15 Obesity PLAN: 1. Low carb and calorie diet 2. Avoid snack and beverage between meal and at bedtime Naomi Sanches MD 11/16/2019 documented in this encounter Plan of Treatment Not on file documented as of this encounter Procedures Procedure Name Priority Date/Time Associated Diagnosis Comments POCT GLYCOSYLATED HEMOGLOBIN Routine 11/16/2019 1:48 PM CDT Type 1 diabetes mellitus without complication (HCC) documented in this encounter Results * (ABNORMAL) POCT GLYCOSYLATED HEMOGLOBIN (11/16/2019 1:48 PM CDT) HGB-A1C 9.0(A) 4 - 6 11/16/2019 1:48 PM CDT us Naomi Sanches MD POINT OF CARE TESTING (MANUAL) F inal Result documented in this encounter Visit Diagnoses Diagnosis Type 1 diabetes mellitus without complication (HCC)- Primary Type I (juvenile type) diabetes mellitus without mention of complication, not stated as uncontrolled Hypoglycemia Hypoglycemia, unspecified Class 1 obesity due to excess calories with serious comorbidity and body mass index (BMI) of 32.0 to 32.9 in adult documented in this encounter Care Teams System Auditor Relationship Specialty Start Date End Date Carrie Joseph PA [address] [address] PCP - General Adult Medicine 11/11/18 documented as of this encounter
--- OUTSIDE RECORDS SUMMARY | 2024-05-10 18:54 | XMS_ITS | Encounter Summary ---
Author Organization [facility] Address [address] [facility] [place] [address] Phone Care Team Providers Care Casting Molder Name Role Phone Carrie Josehp Primary Care Provider [phone] Reason for Visit * Reason Onset Date Comments Medication Refill 05/15/2020 Encounter Details Date Type Department Care Team (Late st Contact Info) Description 05/15/2020 Refill [facility] - Endocrinology [facility] [address]2 [place] [phone] Naomi Sanches MD #[address] [phone] Medication Refill Social History Tobacco [...] encounter Miscellaneous Notes * Telephone Encounter - Charisma Carrington, RN - 05/15/2020 8:54 AM INSIGHTS ANALYST Refill request received. Order pended. Requested Prescriptions Pending Prescriptions Disp Refills ??? ReliOn Pen [place] 32G X 4 MM Misc 400 Pen Needle 3 Si times a day Next appt: 05/24/20 GHTS ANALYST documented in this encounter Plan of Treatment Not on file documented as of this encounter Visit Diagnoses Not on filedocumented in this encounter Care Teams Casting Molder Relationship Specialty Start Date End Date Carrie Joseph PA [address] [address] PCP - General Adult Medicine 11/11/18 documented as of this encounter
--- OUTSIDE RECORDS SUMMARY | 2024-05-10 18:54 | XMS_ITS | Encounter Summary ---
Author Organization [employer] Care Team Providers Care Trust Officer Name Role Phone Carrie Joseph Primary Care Provider [phone] Encounter Details Date Type Department Care Team (Latest Contact Info) Description 02/22/2020 Travel Social History Tobacco Use Types Packs/Day [...] have Coronavirus / COVID-19? No / Unsure 02/22/2020 2:59 PM CDT documented as of this encounter Plan of Treatment Not on file documented as of this encounter Visit Diagnoses Not on filedocumented in this encounter Care Teams Trust Officer Relationship Specialty Start Date End Date Carrie Joseph PA [address] [address] PCP - General Adult Medicine 11/11/18 documented as of this encounter
--- OUTSIDE RECORDS SUMMARY | 2024-05-10 18:54 | XMS_ITS | Encounter Summary ---
Author Organization [employer] Care Team Providers Care Kindergarten Tutor Name Role Phone Carrie Joseph Primary Care Provider [phone] Naomi Sanches MD Unavailable Encounter Details Date Type Department Care Team (Latest Contact Info) Description 05/24/2020 Travel Social History Tobacco Use Types Packs/Day [...] have Coronavirus / COVID-19? No / Unsure 05/24/2020 2:59 PM SERVICE DESK SPECIALIST documented as of this encounter Plan of Treatment Not on file documented as of this encounter Visit Diagnoses Not on filedocumented in this encounter Care Teams Kindergarten Tutor Relationship Specialty Start Date End Date Carrie Joseph PA [address] [facility] [address] [place] [address] PCP - General Adult Medicine 11/11/18 Naomi Sanches MD #[address] [phone] Consulting Physician Endocrinology 05/21/20 documented as of this encounter
--- OUTSIDE RECORDS SUMMARY | 2024-05-10 18:54 | XMS_ITS | Encounter Summary ---
Author Organization [facility] Address [address] [place] [address] Phone Care Team Providers Care Scrap Iron Loader Name Role Phone Carrie Joseph Primary Care Provider [phone] Naomi Sanches MD Unavailable Reason for Visit * Reason Comments Diabetes Mellitus Follow up Encounter Details Date Type Department Care Team (Late st Contact Info) Description 07/09/2021 9:30 AM PIPE CLEANER Office Visit [facility] - Endocrinology [facility] [address] [place] [phone] Naomi Sanches MD #[address] [phone] Type 1 diabetes mellitus without complication (HCC) (Primary Dx); Hypoglycemia; Insulin dose changed (HCC); Class 1 obesity due to excess calories with serious comorbidity and body mass index (BMI) of 30.0 to 30.9 in adult Discharge Disposition: Discharged to home or Selfcare Social History Tobacco Use Types Packs/Day Years Used Date Smoking Tobacco: Never Smokeless Tobacco: Never Tobacco Cessation:Counseling Given: No Alcohol Use Standard Drinks/Week Comments Yes 0 [...] have Coronavirus / COVID-19? No / Unsure 07/09/2021 9:20 AM PIPE CLEANER documented as of this encounter Last Filed Vital Signs Vital Sign Reading Time Taken Comments Blood Pressure 102/70 07/09/2021 9:35 AM PIPE CLEANER Pulse 89 07/09/2021 9:35 AM PIPE CLEANER Temperature 35.9 ??C (96.7 ??F) 07/09/2021 9:35 AM CS T Respiratory Rate 16 07/09/2021 9:35 AM PIPE CLEANER Oxygen Saturation 98% 07/09/2021 9:35 AM PIPE CLEANER Inhaled Oxygen Concentration - - Weight 72.6 kg (160 lb) 07/09/2021 9:35 AM PIPE CLEANER Height 154.9 cm (5' 1 ) 07/09/2021 9:35 AM PIPE CLEANER Body Mass Index 30.23 07/09/2021 9:35 AM PIPE CLEANER documented in this encounter Patient Instructions * Patient Instructions* Naomi Sanches MD - 07/09/2021 9:30 AM PIPE CLEANER Please??change??Basaglar??to??18??units at bedtime ?? Please??continue??Humalog??1 unit for 8??gm of CHO before each meal ?? Please reduce bolus insulin by 20% in anticipation of physical activity ?? Please use correctional factor insulin before [...] toes clean and dry. ?? CORRECTION FACTOR: ??1:50 ?? BLOOD GLUCOSE (SUGAR) CORRECTION FACTOR: ??1:50?? HUMALOG/NOVOLOG UNDER 70 TREAT LOW, USE RULE OF 15 ?71 - 150 ??+0 UNIT 151 - 200 ??+1 UNIT 201 - 250 ??+2 UNITS 251 - 300 ??+3 UNITS 301 - 350 ??+4 UNITS 351 - 400 ??+5 UNITS ABOVE 400 ??+6 UNITS ? CLEANER CLEANER documented in this encounter Progress Notes * Naomi Sanches MD - 07/09/2021 9:30 AM CST Subject&Objective Karina Fuchs is a 26-year-old woman who comes to the Endocrinology office to discuss management of type 1 diabetes mellitus. Other pertinent health history includes cyclic vomiting. The patient wasinitially diagnosed with diabetes approximately 11 years ago. Currently, Ms. Fuchs takes Basaglar 15 units at bedtime and Humalog 1 unit for every 8 gm of CHO before each meal for management of hyperglycemia. The patient reports infrequent, mild hypoglycemic events with intact symptoms of hypoglycemia awareness. The patient denied severe low blood sugar events requiring third constitution party intervention. Unfortunately, the patient did not bring her glucose meter fordownload or a logbook for review at today's office appointment. Ms. Fuchs reported that morning blood sugars have been running mostly between 150 and 200 mg/dL with blood sugars checked at other times of the day in the range of 100 to 175 mg/ dL. Hemoglobin A1c obtained in April 2021 was 6.7%. Physical Exam Vitals: 07/09/21 0935 BP: 102/70 BP Location: Left Arm BP Position: Sitting BP Cuff Size: Large Pulse: 89 Resp: 16 Temp: 96.7 ??F (35.9 ??C) TempSrc: Temporal SpO2: 98% Weight: 160 lb (72.6 kg) Height: 5' 1 (1.549 m) Constitutional: appears well-developed and well-nourished. No acute distress. Head: Normocephalic and atraumatic. Cardiovascular: Normal rate and regular rhythm Pulmonary/Chest: Effort normal and breath sounds normal Abdominal: No lipohypertrophy at injection sites Assessment and Plan Karina Fuchs is a young woman with type 1 diabetes mellitus whose glycemic control was suboptimalbased on review of her capillary blood glucose report. Rising in blood glucose from HS to AM indicates that there is room to increase Basaglar at bedtime. Treatment consideration and lifestyle modification were discussed with her at some length. She will raise Basaglar to 18 units at bedtime and continue Humalog 1 unit for every 8 gm of CHO before each meal for management of hyperglycemia. The patient will return for office reevaluation in 3 months. PLAN: 1. Increase Basaglar to 18 units at bedtime 2. Take Humalog 1 unit for every 8 gm of CHO before each meal 3. Correctional factor insulin dosed at 1:50 if CBG is > 150 mg/dl 4. Monitor blood sugar QAC/QHS 5. Bring CBG log for review 6. Contact Endocrinology Clinic for low blood sugar events 7. Await approval of insulin pump 8. RTC in 3 months Obesity PLAN: 1. Low carb and calorie diet 2. Avoid snack and beverage between meal and at bedtime Hypoglycemia PLAN: 1. Consistent CHO diet 2. Rule of 15 Total time spent on this encounter on this date of service, including pre-visit review of separately obtained history, [id number] interaction performing medically appropriate physical exam, patientcounseling/education, interpretation of diagnostic results, care coordination and documentation was32 minute Naomi Sanches MD 07/09/2021 CLEANER documented in this encounter Plan of Treatment Not on file documented as of this encounter Visit Diagnoses Diagnosis Type 1 diabetes mellitus without complication (HCC)- Primary Type I (juvenile type) diabetes mellitus without mention of complication, not stated as uncontrolled Hypoglycemia Hypoglycemia, unspecified Insulin dose changed (HCC) Class 1 obesity due to excess calories with serious comorbidity and body mass index (BMI) of 30.0 to 30.9 in adult documented in this encounter Care Teams Scrap Iron Loader Relationship Specialty Start Date End Date Carrie Joseph PA [address] [address] PCP - General Adult Medicine 11/11/18 Naomi Sanches MD #[address] [phone] Consulting Physician Endocrinology 05/21/20 documented as of this encounter
--- OUTSIDE RECORDS SUMMARY | 2024-05-10 18:54 | XMS_ITS | Encounter Summary ---
Author Organization [employer] Care Team Providers Care Elevator Operator Freight Name Role Phone Carrie Joseph Primary Care Provider [phone] Encounter Details Date Type Department Care Team (Latest Contact Info) Description 12/18/2019 Travel Social History Tobacco Use Types Packs/Day [...] have Coronavirus / COVID-19? No / Unsure 12/18/2019 1:46 PM CDT documented as of this encounter Plan of Treatment Not on file documented as of this encounter Visit Diagnoses Not on filedocumented in this encounter Care Teams Elevator Operator Freight Relationship Specialty Start Date End Date Carrie Joseph PA [address] [address] PCP - General Adult Medicine 11/11/18 documented as of this encounter
--- OUTSIDE RECORDS SUMMARY | 2024-05-10 18:54 | XMS_ITS | Encounter Summary ---
Author Organization [facility] Address [address] [facility] [place] [address] Phone Care Team Providers Care Corporate Aircraft Mechanic Name Role Phone Carrie Joseph Primary Care Provider [phone] Reason for Visit * Reason Comments Diabetes Mellitus Type 1 DM Encounter Details Date Type Department Care Team (Late st Contact Info) Description 12/18/2019 1:30 PM CDT Office Visit [facility] - Endocrinology - [place] [address] [place] [phone] Naomi Sanches MD [address] [phone] Type 1 diabetes mellitus without complication (HCC) (Primary Dx); Class 1 obesity due to excess calories [...] Sign Reading Time Taken Comments Blood Pressure 118/72 12/18/2019 1:55 PM CDT Pulse 107 12/18/2019 1:55 PM CDT Temperature 36.3 ??C (97.3 ??F) 12/18/2019 1:55 PM CD T Respiratory Rate 18 12/18/2019 1:55 PM CDT Oxygen Saturation 98% 12/18/2019 1:55 PM CDT Inhaled Oxygen Concentration - - Weight 73 kg (161 lb) 12/18/2019 1:55 PM CDT Height 154.9 cm (5' 1 ) 12/18/2019 1:55 PM CDT Body Mass Index 30.42 12/18/2019 1:55 PM CDT documented in this encounter Patient Instructions * Patient Instructions* Naomi Sanches MD - 12/18/2019 1:30 PM CDT Please??continue??Basaglar??10??units at bedtime ?? Please continue Humalog 1 unit for 7 gm of CHO before each meal ?? Please use correctional factor insulin before each meal as directed ?? Please monitor blood sugar before each meal and at bedtime ?? Please??bring??blood sugar log for review??at the next visit ?? Contact Endocrinology Clinic for low blood sugar events ?? Follow up visit in??2 months ?? RULE OF 15: ??If you have [...] Progress Notes * Naomi Sanches MD - 12/18/2019 1:30 PM CDT CC: Hyperglycemia Karina Fuchs is a 24-year-old woman who returns to the Endocrinology office to discuss managementof type 1 diabetes mellitus. The patient's diabetes is complicated by gastroparesis. Other pertinent health history includes DKA and obesity. The patient was initially diagnosed with diabetes approximately 10 years ago. Presently, the patient takes Basaglar 12 units at bedtime and Humalog 1 unit for every 7 gm of CHO before each meal for management of hyperglycemia. The patient denied low blood sugar event or severehypoglycemia requiring third democrat intervention. Unfortunately, the patient did not bring her glucose meter for download or a logbook for review at today's office appointment. Ms. Fuchs reported thather blood sugars have been running consistently between 110 and 150 mg/dL. Hemoglobin A1c obtained in November 2019 was 9.0%. Diabetes related complication surveillance 1. No history of diabetic retinopathy - the last dilated eye exam was in Jan 2018 2. No symptoms of peripheral sensory neuropathy 3. Urine microalbumin/creatinine ratio - not available 4. BP 118/72 mmHg 5. LDL - not available 6. No history of macrovascular disease Review of Systems Constitutional: Negative for activity change, appetite change. (+) weight loss HENT: Negative for congestion and sinus pressure. [...] Laterality Date ??? SECTION ??? TONSILLECTOMY Vitals: 12/18/19 1355 BP: 118/72 BP Location: Right Arm BP Position: Sitting BP Cuff Size: Regular Pulse: 107 Resp: 18 Temp: 97.3 ??F (36.3 ??C) TempSrc: Tympanic SpO2: 98% Weight: 161 lb (73 kg) Height: 5' 1 (1.549 m) Objective: Physical Exam Constitutional: appears well-developed and well-nourished. No acute distress. Head: Normocephalic and atraumatic. Eyes: EOM are normal. moist conjunctivae, Not icteric Neck: Normal range of motion, Neck supple Cardiovascular: Normal rate and regular rhythm Pulmonary/Chest: Effort normal and breath sounds normal Musculoskeletal: Normal range of motion Neurological: Alert and oriented to person, place, and time, CN 2-12 grossly intact Skin: Skin is warm and dry, No rash noted. Psychiatric: Normal mood and affect. Judgment normal DIAGNOSTIC DATA: Lab Results Component Value Date HGBA1C 9.0 (A) 11/16/2019 HGBA1C 7.7 (A) 05/08/2019 HGBA1C 10.9 (H) [...] 1 diabetes mellitus whose overall glycemic control is reasonable based on review of her capillary blood glucose report. Treatment consideration and lifestylemodification were discussed with her at some length. She will continue current insulin regimen for management of hyperglycemia. The patient will return for office reevaluation in 2 months. PLAN: 1. Take Basasglar 12 units at bedtime 2. Take Humalog 1 unit for every 7 gm of CHO before each meal 3. Correctional factor insulin dosed at 1:14 if CBG is > 140 mg/dl 4. Monitor blood sugar QAC/QHS 5. Bring CBG log for review 6. Contact Endocrinology Clinic for low blood sugar events 7. Recheck Hb A1c at the next visit 8. RTC in 2 months Naomi Sanches MD 12/18/2019 documented in this encounter Plan of Treatment Not on file documented as of this encounter Visit Diagnoses Diagnosis Type 1 diabetes mellitus without complication (HCC)- Primary Type I (juvenile type) diabetes mellitus without mention of complication, not stated as uncontrolled Class 1 obesity due to excess calories with serious comorbidity and body mass index (BMI) of 30.0 to 30.9 in adult documented in this encounter Care Teams Corporate Aircraft Mechanic Relationship Specialty Start Date End Date Carrie Joseph PA [address] [address] PCP - General Adult Medicine 11/11/18 documented as of this encounter
--- OUTSIDE RECORDS SUMMARY | 2024-05-10 18:54 | XMS_ITS | Encounter Summary ---
Author Organization [facility] Address [address] [facility] [place] [address] Phone Care Team Providers Care Professional Model Name Role Phone Carrie Joseph Primary Care Provider [phone] Naomi Sanches MD Unavailable Reason for Visit * Reason Comments Diabetes Mellitus Type 1 Dm Encounter Details Date Type Department Care Team (Late st Contact Info) Description 10/31/2021 10:00 AM CDT Office Visit [facility] - Endocrinology [facility] [address] [place] [address] Naomi Sanches MD [address] [phone] Type 1 diabetes mellitus without complication (HCC) (Primary Dx); Class 1 obesity due to excess calories with serious comorbidity and body mass index (BMI) of 30.0 to 30.9 in adult; Insulin dose changed (HCC) Discharge Disposition: Discharged to home or Selfcare [...] AM CDT documented as of this encounter Last Filed Vital Signs Vital Sign Reading Time Taken Comments Blood Pressure 100/62 10/31/2021 10:10 AM CDT Pulse 99 10/31/2021 10:10 AM CDT Temperature 35.9 ??C (96.7 ??F) 10/31/2021 10:10 AM C DT Respiratory Rate 18 10/31/2021 10:10 AM CDT Oxygen Saturation 98% 10/31/2021 10:10 AM CDT Inhaled Oxygen Concentration - - Weight 74.4 kg (164 lb) 10/31/2021 10:10 AM CDT Height 154.9 cm (5' 1 ) 10/31/2021 10:10 AM CDT Body Mass Index 30.99 10/31/2021 10:10 AM CDT documented in this encounter Patient Instructions * Patient Instructions* Naomi Sanches MD - 10/31/2021 10:00 AM CDT Please??take Lantus 24??units at bedtime ?? Please??continue??Humalog??1 unit for 8??gm [...] clean and dry. ?? CORRECTION FACTOR: 1:30 BLOOD GLUCOSE (SUGAR) CORRECTION [...] 400 +9 UNITS ABOVE 400 +10 UNITS documented in this encounter Progress Notes * Naomi Sanches MD - 10/31/2021 10:00 AM CDT Subject&Objective Karina Fuchs is a 26-year-old woman who comes to the Endocrinology office to discuss management of type 1 diabetes mellitus. The patient's diabetes is complicated by gastroparesis. Other pertinent health history includes cyclic vomiting, obesity, and recurrent DKA. The patient was initially diagnosed with diabetes approximately 11 years ago. Ms. Fuchs was admitted at [facility] with DKA on October 24, 2021. Currently, the patient takes Lantus 20 units at bedtime and Humalog 1 unit for every 8 gm of CHO before each meal for management of hyperglycemia. Ms. Fuchs denied low blood sugar event or severe hypoglycemia requiring third republican intervention. Unfortunately, the patient did not bring her glucose meter for download or a logbook for review at today's office appointment. Ms. Fuchs reported that morning blood sugars have been running consistently between 150 and 200 mg/dL with blood sugars checked at other times of the day consistently in the range of 100 to 200 mg/ dL. Hemoglobin A1c obtained in October 2021 was 7.6%, increased from the previous measurement of 6.7% obtained in April 2021. Physical Exam Vitals: 10/31/21 1010 BP: 100/62 BP Location: Right Arm BP Position: Sitting Pulse: 99 Resp: 18 Temp: 96.7 ??F (35.9 ??C) TempSrc: Temporal SpO2: 98% Weight: 164 lb (74.4 kg) Height: 5' 1 (1.549 m) Constitutional: appears well-developed and well-nourished. No acute distress. Head: Normocephalic and atraumatic. Cardiovascular: Normal rate and regular rhythm Pulmonary/Chest: Effort normal and breath sounds normal Abdominal: No lipohypertrophy at injection sites Medical record including lab test result was reviewed. Assessment and Plan Karina Fuchs is a young woman with type 1 diabetes mellitus whose glycemic control was suboptimalbased on both review of her capillary blood glucose report and recent hemoglobin A1c measurement. Treatment consideration and insulin pumps w/ sensor were discussed with her at some length. Arrangement will be made for [facility] w/ Control IQ. She will increase Lantus to 24 units at bedtime and change ISF to 1:30 if >140 mg/dL for management of hyperglycemia. The patient will return for office reevaluation in 3 months. PLAN: 1. Increase Lantus to 24 units at bedtime 2. Take Humalog 1 unit for every 8 gm of CHO before each meal 3. Correctional factor insulin dosed at 1:30 if CBG is > 140 mg/dl 4. Monitor blood sugar QAC/QHS 5. Bring CBG log for review 6. Contact Endocrinology Clinic for low blood sugar events 7. Apply for an insulin pump w/ sensor 8. RTC in 3 months Obesity PLAN: 1. Low carb and calorie diet 2. Avoid snack and beverage between meal and at bedtime Total time spent on this encounter on this date of service, including pre-visit review of separately obtained history, [id number] interaction performing medically appropriate physical exam, patientcounseling/education, interpretation of diagnostic results, care coordination and documentation was31 minute Naomi Sanches MD 10/31/2021 documented in this encounter Plan of Treatment Not on file documented as of this encounter Visit Diagnoses Diagnosis Type 1 diabetes mellitus without complication (HCC)- Primary Type I (juvenile type) diabetes mellitus without mention of complication, not stated as uncontrolled Class 1 obesity due to excess calories with serious comorbidity and body mass index (BMI) of 30.0 to 30.9 in adult Insulin dose changed (HCC) documented in this encounter Care Teams Professional Model Relationship Specialty Start Date End Date Carrie Joseph PA [address] [facility] [address] [place], [place] [id number] PCP - General Adult Medicine 11/11/18 Naomi Sanches MD #[address] [phone] Consulting Physician Endocrinology 05/21/20 documented as of this encounter
--- OUTSIDE RECORDS SUMMARY | 2024-05-10 18:54 | XMS_ITS | Encounter Summary ---
Author Organization [facility] Address [address] [facility] [place] [address] Phone Care Team Providers Care Manager Of Organizational Development Name Role Phone Carrie Joseph Primary Care Provider [phone] Naomi Sanches MD Unavailable Reason for Visit * Reason Comments Medication Refill Encounter Details Date Type Department Care Team (Late st Contact Info) Description 12/26/2020 Refill [facility] - Endocrinology - [place] [address] [place] [address] Naomi Sanches MD #[address] [phone] Medication Refill Social History Tobacco [...] have Coronavirus / COVID-19? No / Unsure 11/28/2020 9:50 AM CDT documented as of this encounter Miscellaneous Notes * Telephone Encounter - aNomi Sanches MD - 12/26/2020 1:08 PM CDT Rx sent * Telephone Encounter - Charisma Carrington, RN - 12/26/2020 12:52 PM CDT Requested Prescriptions Pending Prescriptions Disp Refills ??? Basaglar KwikPen 100 UNIT/ML Solution Pen-injector [Pharmacy Med Name: Basaglar KwikPen 100 UNIT/ML Subcutaneous Solution Pen-injector] 15 mL 0 Sig: INJECT 15 UNITS SUBCUTANEOUSLY NIGHTLY Next appt: 03/05/2021 documented in this encounter Plan of Treatment Not on file documented as of this encounter Visit Diagnoses Not on filedocumented in this encounter Care Teams Manager Of Organizational Development Relationship Specialty Start Date End Date Carrie Joseph PA [address] [address] PCP - General Adult Medicine 11/11/18 Naomi Sanches MD #[address] [phone] Consulting Physician Endocrinology 05/21/20 documented as of this encounter
--- OUTSIDE RECORDS SUMMARY | 2024-05-10 18:54 | XMS_ITS | Encounter Summary ---
Author Organization [facility] Address [address] [facility] [place] [address] Phone Care Team Providers Care Test Worker Name Role Phone Carrie Joseph Primary Care Provider [phone] Reason for Visit * Reason Comments Medication Refill Encounter Details Date Type Department Care Team (Late st Contact Info) Description 01/25/2020 Refill [facility] - Endocrinology - [place] [address] [place] [phone] Naomi Sanches MD #[address] [phone] Medication Refill Social History Tobacco Use Types [...] Telephone Encounter - Naomi Sanches MD - 01/25/2020 3:07 PM CDT Rx sent * Telephone Encounter - Charisma Carrington RN - 01/25/2020 9:54 AM CDT Refill request received. Order pended. Requested Prescriptions Pending Prescriptions Disp Refills ??? Insulin Lispro, 1 Unit Dial, 100 UNIT/ML Solution Pen-injector [Pharmacy Med Name: Insulin Lispro (1 Unit Dial) 100 UNIT/ML Subcutaneous Solution Pen- injector] 15 mL 0 Sig: INJECT 1 UNIT FOR EVERY 8GM OF CARBOHYDRATES BEFORE EACH MEAL. ISF OF 1:40 IF >140MG/DL. UPTO 50 UNITS PER DAY. Next appt: 02/22/2020 documented in this encounter Plan of Treatment Not on file documented as of this encounter Visit Diagnoses Not on filedocumented in this encounter Care Teams Test Worker Relationship Specialty Start Date End Date Carrie Joseph PA [address] [address] PCP - General Adult Medicine 11/11/18 documented as of this encounter
--- OUTSIDE RECORDS SUMMARY | 2024-05-10 18:54 | XMS_ITS | Encounter Summary ---
Author Organization [facility] Address [address] [place] [address] Phone Care Team Providers Care Bookkeepers Supervisor Name Role Phone Carrie Joseph Primary Care Provider [phone] Naomi Sanches MD Unavailable Reason for Referral * Radiology Services (Routine) - Closed Specialty Diagnoses / Procedures Referred By Rachael frey Referred To Contact Radiology Diagnoses Nausea and vomiting, intractability of vomiting not specified, unspecified vomiting type Gastroparesis Procedures NM GASTRIC EMPTYING STUDY Samaria Baez, PAC [address] [place] [address] Phone: tel: fax: Referral ID Status Reason Start Date Expiration Date Visits Re quested Visits Authorized [id number] Closed 05/08/2021 1 1 RIBUTION TECH Reason for Visit * Radiology Services (Routine) - Closed Specialty Diagnoses / Procedures Referred By Contnela frey Referred To Contact Radiology Diagnoses Nausea and vomiting, intractability of vomiting not specified, unspecified vomiting type Gastroparesis Procedures NM GASTRIC EMPTYING STUDY Samaria Baez PAC [address] [place] [address] Phone: tel: fax: Referral ID Status Reason Start Date Expiration Date Visits Re quested Visits Authorized [id number] Closed 05/08/2021 1 1 Encounter Details Date Type Department Care Team (Latest Contact Info) Description 05/16/2021 9:17 AM DISTRIBUTION TECH - 05/16/2021 11:59 PM DISTRIBUTION TECH Hospital Encounter [facility] Nuclear Medicine [address] [place] [address] Samaria Baez, PAC [address] [place] [address] Discharge Disposition: Discharged to home or Selfcare [...] have Coronavirus / COVID-19? No / Unsure 05/16/2021 9:12 AM DISTRIBUTION TECH documented as of this encounter Last Filed Vital Signs Vital Sign Reading Time Taken Comments Blood Pressure - - Pulse - - Temperature - - Respiratory Rate - - Oxygen Saturation - - Inhaled Oxygen Concentration - - Weight 67.6 kg (149 lb) 05/16/2021 9:36 AM DISTRIBUTION TECH Height 154.9 cm (5' 1 ) 05/16/2021 9:36 AM DISTRIBUTION TECH Body Mass Index 28.15 05/16/2021 9:36 AM DISTRIBUTION TECH documented in this encounter Medications at Time of Discharge Glucose Blood (BLOOD GLUCOSE TEST STRIPS) Strip 1 Strip by Does not apply route 4 times daily. 400 Each 3 0 Insulin Syringe-Needle U-100 (INSULIN SYRINGE 1CC/31GX5/16 ) 31G X 5/16 1 ML Misc 4 times a day 400 Each 3 1 omeprazole (PriLOSEC) 20 MG CAPSULE DELAYED RELEASEIndications: Gastroesophageal reflux disease with esophagitis without hemorrhage Take 1 Capsule by mouth 2 times daily (before meals). Take 30 minutes before meal with protein 180 Capsule 1 2 omeprazole (PriLOSEC) 40 MG CAPSULE DELAYED RELEASE Take 1 Capsule by mouth daily. 8 ReliOn Pen Marlow 32G X 4 MM Misc 4 times a day 400 Pen Needle 3 1 Basaglar KwikPen 100 UNIT/ML Solution Pen-injector INJECT 15 UNITS SUBCUTANEOUSLY NIGHTLY 15 mL 1 1 06/17/19 22 Insulin Lispro, 1 Unit Dial, 100 UNIT/ML Solution Pen-injector INJECT 1 UNIT FOR EVERY 7-8 GM OF CARBOHYDRATES BEFORE EACH MEAL. ISF OF 1:40 IF >140MG/DL. UP TO 50 UNITS PER DAY. 45 mL 1 1 06/17/19 22 ondansetron (ZOFRAN-ODT) 4 MG TABLET DISPERSIBLEIndicati ons:Nausea and vomiting, intractability of vomiting not specified, unspecified vomiting type Take 1 Tablet by mouth every 8 hours as needed for Nausea - 1st line. 15 Tablet 2 07/02/19 24 documented as of this encounter Plan of Treatment Not on file documented as of this encounter Procedures Procedure Name Priority Date/Time Associated Diagnosis Comments NM GASTRIC EMPTYING STUDY Routine 05/16/2021 11:42 AM DISTRIBUTION TECH Nausea and vomiting, intractability of vomiting not specified, unspecified vomiting type Gastroparesis documented in this encounter Results * RI GASTRIC EMPTYING STUDY (05/16/2021 11:42 AM DISTRIBUTION TECH) Anatomical Region Laterality Modality GI, Abdomen N/A Nuclear Medicine 05/16/2021 2:28 PM DISTRIBUTION TECH Impressions 05/16/2021 2:31 PM DISTRIBUTION TECH IMPRESSION: Normal ??gastric emptying. ?? Narrative 05/16/2021 2:31 PM DISTRIBUTION TECH EXAM DESCRIPTION: ?? NM GASTRIC EMPTYING STUDY REASON FOR STUDY: Nausea vomiting early satiety for several years with gastro paresis. RADIOPHARMACEUTICAL: 0.5 ??mCi Tc-99m sulfur colloid incorporated into ??eggs ??p.o. TECHNIQUE: After oral ingestion of the radiolabeled meal, sequential anterior and posterior abdominal images were obtained. COMPARISON: None. FINDINGS: At 60 minutes, the residual activity is ??45% ??(normal: 30-90%). At 120 minutes, the residual activity is ??2% ??(normal: less than 60%). At 180 minutes, the residual activity is ??not applicable ??(normal: less than 30%). At 240 minutes, the residual activity is ??not applicable ??(normal: less than 10%). T1/2 emptying time is ??60 minutes. . THIS IS AN ELECTRONICALLY VERIFIED FINAL REPORT 05/16/2021 2:28 PM - Electronically signed by ??Mehrdad Francis M.D. CH: D: ??05/16/2021 2:28 PM T: ??05/16/2021 2:28 PM Report ID: [id number] Reading Location: ??[id number] Procedure Note Mehrdad Francis Jr., MD - 05/16/2021 EXAM DESCRIPTION: NM GASTRIC EMPTYING STUDY REASON FOR STUDY: Nausea vomiting early satiety for several years with gastro paresis. RADIOPHARMACEUTICAL: 0.5 mCi Tc-99m sulfur colloid incorporated into eggs p.o. TECHNIQUE: After oral ingestion of the radiolabeled meal, sequential anterior and posterior abdominal images were obtained. COMPARISON: None. FINDINGS: At 60 minutes, the residual activity is 45% (normal: 30-90%). At 120 minutes, the residual activity is 2% (normal: less than 60%). At 180 minutes, the residual activity is not applicable (normal: less than 30%). At 240 minutes, the residual activity is not applicable (normal: less than 10%). T1/2 emptying time is 60 minutes. . THIS IS AN ELECTRONICALLY VERIFIED FINAL REPORT 05/16/2021 2:28 PM - Electronically signed by Mehrdad Francis M.D. CH: CH Report ID: [id number] Reading Location: [id number] IMPRESSION: Normal gastric emptying. Samaria Baez PAC IMG NM ORDERABLES Final R esult documented in this encounter Visit Diagnoses Diagnosis Nausea and vomiting, intractability of vomiting not specified, unspecified vomiting type Gastroparesis documented in this encounter Administered Medications Inactive Administered Medications - up to 3 most recent administrations Medication Order MAR Action Action Date Dose Rate Site TC-99 M MAA PER DOSE,UP TO 10 MCI 1 Dose, Intravenous, ONCE, 1 dose, On Wed05/16/21 at 1000 Given 05/16/2021 9:35 AM DISTRIBUTION TECH 1 Dose documented in this encounter Care Teams Bookkeepers Supervisor Relationship Specialty Start Date End Date Carrie Joseph PA [address] [facility] [address] [place] [address] PCP - General Adult Medicine 11/11/18 Naomi Sanches MD [address] [phone] Consulting Physician Endocrinology 05/21/20 documented as of this encounter
--- OUTSIDE RECORDS SUMMARY | 2024-05-10 18:54 | XMS_ITS | Encounter Summary ---
Author Organization [facility] Address [address] [facility] [place] [address] Phone Care Team Providers Care Remote Control Assembler Name Role Phone Carrie Joseph Primary Care Provider [phone] Naomi Sanches MD Unavailable Reason for Visit * Reason Onset Date Comments Medication Management 08/08/2021 Basaglar Encounter Details Date Type Department Care Team (Late st Contact Info) Description 08/08/2021 Telephone [facility] - Endocrinology - [place] [address] [place] [address] Naomi Sanches MD [address] [phone] Medication Management (Basaglar/) Social History Tobacco Use Types Packs/Day Years [...] COVID-19? No / Unsure 07/09/2021 9:20 AM TELECOMMUNICATIONS LINE INSTALLER documented as of this encounter Miscellaneous Notes * Telephone Encounter - Naomi Sanches MD - 08/08/2021 4:32 PM CDT Rx of Toujeo sent * Telephone Encounter - Charisma Carrington, RN - 08/08/2021 1:48 PM CDT Basaglar not covered by insurance. Toujeo preferred. documented in this encounter Plan of Treatment Not on file documented as of this encounter Visit Diagnoses Not on filedocumented in this encounter Care Teams Remote Control Assembler Relationship Specialty Start Date End Date Carrie Joseph PA [address] [address] PCP - General Adult Medicine 11/11/18 Naomi Sanches MD #[address] [phone] Consulting Physician Endocrinology 05/21/20 documented as of this encounter
--- OUTSIDE RECORDS SUMMARY | 2024-05-10 18:54 | XMS_ITS | Encounter Summary ---
Author Organization [email or web address] Care Team Providers Care Cant Gang Sawyer Name Role Phone Carrie Joseph Primary Care Provider [phone] Naomi Sanches MD Unavailable Encounter Details Date Type Department Care Team (Latest Contact Info) Description 05/08/2021 Travel Social History Tobacco Use Types Packs/Day [...] have Coronavirus / COVID-19? No / Unsure 05/08/2021 12:49 PM FLARE BREAKER documented as of this encounter Plan of Treatment Not on file documented as of this encounter Visit Diagnoses Not on filedocumented in this encounter Care Teams Cant Gang Sawyer Relationship Specialty Start Date End Date Carrie Joseph PA [address] [facility] [address] [place] [address] PCP - General Adult Medicine 11/11/18 Naomi Sanches MD [address] [phone] Consulting Physician Endocrinology 05/21/20 documented as of this encounter
--- OUTSIDE RECORDS SUMMARY | 2024-05-10 18:54 | XMS_ITS | Encounter Summary ---
Author Organization [facility] Address [address] [facility] [place] [address] Phone Care Team Providers Care Software Quality Tester Name Role Phone Carrie Joseph Primary Care Provider [phone] Reason for Visit * Reason Comments Diabetes Mellitus Type 1 DM Encounter Details Date Type Department Care Team (Late st Contact Info) Description 02/22/2020 3:00 PM CDT Office Visit [facility] - Endocrinology - [place] [address] [place] [phone] Naomi Sanches MD [address] [phone] Type 1 diabetes mellitus without complication (HCC) [...] Sign Reading Time Taken Comments Blood Pressure 108/62 02/22/2020 3:07 PM CDT Pulse 109 02/22/2020 3:07 PM CDT Temperature 36.6 ??C (97.8 ??F) 02/22/2020 3:07 PM CD T Respiratory Rate 16 02/22/2020 3:07 PM CDT Oxygen Saturation 98% 02/22/2020 3:07 PM CDT Inhaled Oxygen Concentration - - Weight 73.5 kg (162 lb) 02/22/2020 3:07 PM CDT Height 154.9 cm (5' 1 ) 02/22/2020 3:07 PM CDT Body Mass Index 30.61 02/22/2020 3:07 PM CDT documented in this encounter Patient Instructions * Patient Instructions* Naomi Sanches MD - 02/22/2020 3:00 PM CDT Please??continue??Basaglar??14??units at bedtime ?? Please continue??Humalog??1 unit for 8??gm of CHO before each meal ?? Please use correctional factor insulin before each meal as directed ?? Please monitor blood sugar before each meal and at bedtime ?? Please??bring??blood sugar log for review??at the next visit ?? Contact Endocrinology Clinic for low blood sugar events ?? Follow up visit in??3 months ?? RULE OF 15: ??If you [...] toes clean and dry. ?? CORRECTION FACTOR: 1:50 BLOOD GLUCOSE (SUGAR) CORRECTION FACTOR: 1:50 HUMALOG/NOVOLOG UNDER 70 TREAT LOW, USE RULE OF 15 71 - 150 +0 UNIT 151 - 200 +1 UNIT 201 - 250 +2 UNITS 251 - 300 +3 UNITS 301 - 350 +4 UNITS 351 - 400 +5 UNITS ABOVE 400 +6 UNITS documented in this encounter Progress Notes * Naomi Sanches MD - 02/22/2020 3:00 PM CDT CC: Hyperglycemia Karina Fuchs is a 24-year-old woman who comes to the Endocrinology office to discuss management of type 1 diabetes mellitus. The patient's diabetes is complicated by gastroparesis. Other pertinent health history includes obesity. The patient was initially diagnosed with diabetes approximately 10 years ago. Currently, Ms. Fuchs takes Basaglar 14 units at bedtime and Humalog 1 unit for every 8 gm of CHO before each meal for management of hyperglycemia. The patient denied low blood sugar event or severe hypoglycemia requiring third constitution party intervention. Review of her capillary blood glucose log for the past two weeks showed morning values in the range of 100 to 140 mg/dL, lunch values ranging from 117 to 150 mg/dL, dinner values in the range of 113 to 150 mg/dL, and bedtime values ranging from 100 to 160 mg/dL. Hemoglobin A1c obtained in November 2019 was 8.4%. Review of Systems Constitutional: Negative for activity change, appetite change, and unexpected weight change. HENT: Negative for [...] Laterality Date ??? SECTION ??? TONSILLECTOMY Vitals: 02/22/20 1507 BP: 108/62 BP Location: Right Arm BP Position: Sitting BP Cuff Size: Regular Pulse: 109 Resp: 16 Temp: 97.8 ??F (36.6 ??C) TempSrc: Temporal SpO2: 98% Weight: 162 lb (73.5 kg) Height: 5' 1 (1.549 m) Objective: Physical Exam Constitutional: appears well-developed and well-nourished. No acute distress. Head: Normocephalic and atraumatic. Eyes: EOM are normal. moist conjunctivae, Not icteric Neck: Normal range of motion, Neck supple, No noticeable or palpable swelling, redness or rash Cardiovascular: Normal rate and regular rhythm, No JVD Pulmonary/Chest: Effort normal and breath sounds normal, No use of accessory muscle, No crackles orwheezing Abdominal: Soft, and not tender, Normal bowel sound, No lipohyperthrophy at injection sites Neurological: Alert and oriented to person, place, and time, CN 2-12 grossly intact Skin: Skin is warm and dry, No rash noted. Psychiatric: Normal mood and affect. Judgment normal. Intact memory for recent and remote events DIAGNOSTIC DATA: Hb A1c checked on 11/29/19 was 8.4%. Lab Results Component Value Date HGBA1C 9.0 [...] diabetes mellitus whose overall glycemic control is stable and reasonable based on review of her capillary blood glucose record. Treatment consideration and hypoglycemic precaution were discussed with her at some length. She will continue current regimen for management of hyperglycemia. The patient will return for office reevaluation in 3 months. PLAN: 1. Take Basaglar 14 units at bedtime 2. Take Humalog 1 unit for 8 gm of CHO before each meal 3. Correctional factor insulin dosed at 1:50 if CBG is > 150 mg/dl 4. Monitor blood sugar QAC/QHS 5. Bring CBG log for review 6. Contact Endocrinology Clinic for low blood sugar events 7. RTC in 3 months Obesity PLAN: 1. Low carb and calorie diet 2. Avoid snack and beverage between meal and at bedtime Naomi Sanches MD 02/22/2020 documented in this encounter Plan of Treatment Scheduled Orders Name Type Priority Associated Diagnoses Orde r Schedule HEMOGLOBIN A1C W/ ESTIMATED GLUCOSE Lab Routine Type 1 diabetes mellitus without complication (HCC) Expected: 05/23/2020, Expires: 11/21/2020 documented as of this encounter Visit Diagnoses Diagnosis Type 1 diabetes mellitus without complication (HCC)- Primary Type I (juvenile type) diabetes mellitus without mention of complication, not stated as uncontrolled Class 1 obesity due to excess calories with serious comorbidity and body mass index (BMI) of 30.0 to 30.9 in adult documented in this encounter Care Teams Software Quality Tester Relationship Specialty Start Date End Date Carrie Joseph PA [address] [address] PCP - General Adult Medicine 11/11/18 documented as of this encounter
--- OUTSIDE RECORDS SUMMARY | 2024-05-10 18:54 | XMS_ITS | Encounter Summary ---
Author Organization [facility] Address [address] [facility] [place] [address] Phone Care Team Providers Care Rehabilitation Teacher Name Role Phone Carrie Joseph Primary Care Provider [phone] Naomi Sanches MD Unavailable Reason for Referral * Consult, Test & Initiate Treatment (Routine) - Closed Specialty Diagnoses / Procedures Referred By Contact Referred To Contact Gastroenterology Diagnoses Nausea and vomiting, intractability of vomiting not specified, unspecified vomiting type Naomi Sanches MD [address] [address] Phone: tel:[phone] fax:[phone] [facility] Medical [facility] - Gastroenterology [facility] [address] [place] [address] Phone: tel: fax: Referral ID Status Reason Start Date Expiration Date Visits Re quested Visits Authorized [id number] Closed 11/28/2020 1 1 Scheduling Instructions Nausea and vomiting. Reason for Visit * Reason Comments Diabetes Mellitus Follow up Encounter Details Date Type Department Care Team (Latest Contact Info) Description 11/28/2020 10:00 AM CDT Office Visit [facility] Medical [facility] - Endocrinology [facility] [address] [place] [address] Naomi Sanches MD [address] [phone] Type 1 diabetes mellitus without complication (HCC) (Primary Dx); Nausea and vomiting, intractability of vomiting not specified, unspecified vomiting type; Hypoglycemia; Insulin dose changed (HCC); Overweight Discharge Disposition: Discharged to home or [...] Reading Time Taken Comments Blood Pressure 98/62 11/28/2020 9:54 AM CDT Pulse 80 11/28/2020 9:54 AM CDT Temperature 36 ??C (96.8 ??F) 11/28/2020 9:54 AM CDT Respiratory Rate 16 11/28/2020 9:54 AM CDT Oxygen Saturation 98% 11/28/2020 9:54 AM CDT Inhaled Oxygen Concentration - - Weight 69.9 kg (154 lb) 11/28/2020 9:54 AM CDT Height 154.9 cm (5' 1 ) 11/28/2020 9:54 AM CDT Body Mass Index 29.1 11/28/2020 9:54 AM CDT documented in this encounter Patient Instructions * Patient Instructions* Naomi Sanches MD - 11/28/2020 10:00 AM CDT Please??decrease??Basaglar??to??15??units at bedtime ?? Please??continue??Humalog??1 unit for??8??gm of CHO before each meal ?? Please [...] ??+5 UNITS ABOVE 400 ??+6 UNITS ? documented in this encounter Progress Notes * Naomi Sanches MD - 11/28/2020 10:00 AM CDT Subject&Objective Karina Fuchs is a 25-year-old woman who comes to the Endocrinology office to discuss management of type 1 diabetes mellitus. The patient's diabetes is complicated by gastroparesis. Other pertinent health history includes recurrent DKA and overweight. The patient was initially diagnosed with diabetes approximately 11 years ago. Currently, the patient takes Basaglar 18 units at bedtime and Humalog 1 unit for every 7-8 gm of CHO before each meal for management of hyperglycemia. The patient reports occasional, mild hypoglycemic events with intact symptoms of hypoglycemia awareness. Most episodes occur in the morning before breakfast. The patient denied severe low blood sugar events requiring third constitution party intervention. Unfortunately, the patient did not bring her glucose meter for download or a logbook for review at today's office appointment. Ms. Fuchs reported that morning blood sugars have been running consistently between 55 and 90 mg/dL with blood sugars checked at other times of the day consistently in the range of 90 to 140 mg/ dL. Hemoglobin A1c obtained at [facility] in October 2020 was 6.0%, stable from the previous measurement of 6.2% obtained in August 2020. Ms. Fuchs has experienced intermittent episodes of nausea and vomiting (~every 3-4 weeks), which often caused diabetic ketoacidosis. Physical Exam Vitals: 11/28/20 0954 BP: 98/62 BP Location: Left Arm BP Position: Sitting BP Cuff Size: Large Pulse: 80 Resp: 16 Temp: 96.8 ??F (36 ??C) TempSrc: Temporal SpO2: 98% Weight: 154 lb (69.9 kg) Height: 5' 1 (1.549 m) Constitutional: appears well-developed and well-nourished. No acute distress. Head: Normocephalic and atraumatic. Cardiovascular: Normal rate and regular rhythm Pulmonary/Chest: Effort normal and breath sounds normal Abdominal: No lipohypertrophy at injection sites Assessment and Plan Karina Fuchs is a young woman with type 1 diabetes mellitus whose overall glycemic control was suboptimal based on review of her capillary blood glucose report. Low blood sugar event in the morningsuggests that current basal insulin coverage seems excessive. Treatment consideration and hypoglycemic precaution were discussed with her at some length. She will reduce Basaglar to 15 units at bedtime and continue Humalog 1 unit for every 7-8 gm of CHO before each meal for management of hyperglycemia. The patient will return for office reevaluation in 3 months. PLAN: 1. Take Basaglar 15 units at bedtime 2. Take Humalog 1 unit for every 7-8 gm of CHO before each meal 3. Correctional factor insulin dosed at 1:50 if CBG is > 150 mg/dl 4. Monitor blood sugar QAC/QHS 5. Bring CBG log for review 6. Contact Endocrinology Clinic for low blood sugar events 7. RTC in 3 months Hypoglycemia PLAN: 1. Consistent CHO diet 2. Rule of 15 Overweight PLAN: 1. Low carb and calorie diet 2. Avoid snack and beverage between meal and at bedtime Cyclic nausea and vomiting PLAN: 1. Arrange GI referral Total time spent on this encounter on this date of service, including pre-visit review of separately obtained history, [id number] interaction performing medically appropriate physical exam, patientcounseling/education, interpretation of diagnostic results, care coordination and documentation was33 minute Naomi Sanches MD 11/28/2020 documented in this encounter Plan of Treatment Scheduled Referrals Name Type Priority Associated Diagnoses Orde r Schedule GASTROENTEROLOGY REFERRAL Outpatient Referral Routine Nausea and vomiting, intractability of vomiting not specified, unspecified vomiting type Expected: 11/28/2020, Expires: 11/28/2021 documented as of this encounter Visit Diagnoses Diagnosis Type 1 diabetes mellitus without complication (HCC)- Primary Type I (juvenile type) diabetes mellitus without mention of complication, not stated as uncontrolled Nausea and vomiting, intractability of vomiting not specified, unspecified vomiting type Hypoglycemia Hypoglycemia, unspecified Insulin dose changed (HCC) Overweight documented in this encounter Care Teams Rehabilitation Teacher Relationship Specialty Start Date End Date Carrie Joseph PA [address] [facility] [address] [place] [address] PCP - General Adult Medicine 11/11/18 Naomi Sanches MD [address] [phone] Consulting Physician Endocrinology 05/21/20 documented as of this encounter
--- OUTSIDE RECORDS SUMMARY | 2024-05-10 18:54 | XMS_ITS | Encounter Summary ---
Author Organization [facility] Address [address] [facility] [place] [address] Phone Care Team Providers Care Insulation Engineman Name Role Phone Carrie Joseph Primary Care Provider [phone] Naomi Sanches MD Unavailable Reason for Visit * Reason Onset Date Comments Care Management 11/27/2020 DKA Encounter Details Date Type Department Care Team (Late st Contact Info) Description 11/27/2020 Telephone [facility] - Endocrinology [facility] [address]2 [place] [address] Naomi Sanches MD [address] [phone] Care Management (DKA) Social History Tobacco Use Types Packs/Day Years [...] Miscellaneous Notes * Telephone Encounter - Charisma Carrington RN - 11/27/2020 1:44 PM CDT Call received from [facility]. Patient was recently admitted to [facility] with DKA and wantedyou to be aware. documented in this encounter Plan of Treatment Not on file documented as of this encounter Visit Diagnoses Not on filedocumented in this encounter Care Teams Insulation Engineman Relationship Specialty Start Date End Date Carrie Joseph PA [address] [address] PCP - General Adult Medicine 11/11/18 Naomi Sanches MD #[address] [phone] Consulting Physician Endocrinology 05/21/20 documented as of this encounter
--- OUTSIDE RECORDS SUMMARY | 2024-05-10 18:54 | XMS_ITS | Encounter Summary ---
Author Organization [employer] Care Team Providers Care French Drawer Name Role Phone Carrie Joseph Primary Care Provider [phone] Naomi Sanches MD Unavailable Encounter Details Date Type Department Care Team (Latest Contact Info) Description 11/28/2020 Travel Social History Tobacco Use Types Packs/Day [...] on filedocumented in this encounter Care Teams French Drawer Relationship Specialty Start Date End Date Carrie Joseph PA [address] [facility] [address] [place] [address] PCP - General Adult Medicine 11/11/18 Naomi Sanches MD [address] [phone] Consulting Physician Endocrinology 05/21/20 documented as of this encounter
--- OUTSIDE RECORDS SUMMARY | 2024-05-10 18:54 | XMS_ITS | Encounter Summary ---
Author Organization [facility] Address [address] [facility] [place] [address] Phone Care Team Providers Care Composite Layup Worker Name Role Phone Carrie Joseph Primary Care Provider [phone] Naomi Sanches MD Unavailable Reason for Visit * Reason Comments Diabetes Mellitus Follow up Encounter Details Date Type Department Care Team (Late st Contact Info) Description 08/27/2020 2:30 PM CDT Office Visit [facility] Medical Group - Endocrinology [facility] [address]2 [place] [address] Naomi Sanches MD #[address] [phone] Type 1 diabetes mellitus [...] have Coronavirus / COVID-19? No / Unsure 08/27/2020 2:42 PM CDT documented as of this encounter Last Filed Vital Signs Vital Sign Reading Time Taken Comments Blood Pressure 102/60 08/27/2020 3:15 PM CDT Pulse 124 08/27/2020 3:15 PM CDT Temperature 36 ??C (96.8 ??F) 08/27/2020 3:15 PM CDT Respiratory Rate 16 08/27/2020 3:15 PM CDT Oxygen Saturation 98% 08/27/2020 3:15 PM CDT Inhaled Oxygen Concentration - - Weight 73 kg (161 lb) 08/27/2020 3:15 PM CDT Height 154.9 cm (5' 1 ) 08/27/2020 3:15 PM CDT Body Mass Index 30.42 08/27/2020 3:15 PM CDT documented in this encounter Patient Instructions * Patient Instructions* Naomi Sanches MD - 08/27/2020 2:30 PM CDT Please??increase??Basaglar??to 18??units at bedtime ?? Please??continue??Humalog??1 unit for??8??gm of CHO before each meal Please reduce bolus insulin by 20% in [...] Progress Notes * Eliane Christensen CMA - 08/27/2020 2:30 PM CDT Patient was seen in office today and finger stick was obtained on left middle finger for A1C, Patient tolerated well. * Naomi Sanches MD - 08/27/2020 2:30 PM CDT Subject&Objective Karina Fuchs is a 25-year-old woman who comes to the Endocrinology office to discuss management of type 1 diabetes mellitus. The patient's diabetes is complicated by gastroparesis. Other pertinent health history includes overweight. The patient was initially diagnosed with diabetes approximately 11 years ago. Currently, Ms. Fuchs takes Basaglar 15 units at bedtime, Humalog 1 unit for every 8 gm of CHO before each meal for management of hyperglycemia. The patient reports occasional, mild hypoglycemic events with intact symptoms of hypoglycemia awareness. Most episodes occur when she is physically active.The patient denied severe low blood sugar events requiring third constitution party intervention. Unfortunately,the patient did not bring her glucose meter for download or a logbook for review at today's office appointment. Ms. Fuchs reported that morning blood sugars have been running mostly between 100 and 175 mg/dL with blood sugars checked at other times of the day in the range of 50 to 200 mg/ dL. Hemoglobin A1c obtained by POC testing today was 6.2%, improved from the previous measurement of 7.8% obtained in March 2020. Physical Exam Vitals: 08/27/20 1515 BP: 102/60 BP Location: Left Arm BP Position: Sitting BP Cuff Size: Large Pulse: (!) 124 Resp: 16 Temp: 96.8 ??F (36 ??C) TempSrc: Tympanic SpO2: 98% Weight: 161 lb (73 kg) Height: 5' 1 (1.549 m) Constitutional: appears well-developed and well-nourished. No acute distress. Head: Normocephalic and atraumatic. Cardiovascular: Tachycardia and regular rhythm Pulmonary/Chest: Effort normal and breath sounds normal Abdominal: No lipohypertrophy at injection sites Assessment and Plan Karina Fuchs is a young woman with type 1 diabetes mellitus whose overall glycemic control has improved substantially over the last 3 months based on today???s Ofwfv-dv-Jast hemoglobin A1c measurement. In particular, hemoglobin A1c has decreased by over 1% and is now below the patient???s [employer] treatment target of less than 7%. Rising in blood glucose from HS to AM suggests that current basal insulin coverage is not sufficient. High prandial blood sugar in spite of correctional factor insulin indicates that there is room to increase Humalog before each meal. Treatment consideration and hypoglycemic precaution were discussed with her at some length. Ms. Fuchs will take Basaglar 18 units at bedtime and increase prandial insulin by 20% for management of hyperglycemia. The patient will return for office reevaluation in 3 months. PLAN: 1. Take Basaglar 18 units at bedtime 2. Take Humalog 1 unit for 7-8 gm of CHO before each meal 3. Reduce prandial insulin by 20% in anticipation of physical activity 4. Correctional factor insulin dosed at 1:50 if CBG is > 140 mg/dl 5. Monitor blood sugar QAC/QHS 6. Bring CBG log for review 7. Contact Endocrinology Clinic for low blood sugar events 8. RTC in 3 months Hypoglycemia PLAN: 1. Consistent CHO diet 2. Rule of 15 Obesity PLAN: 1. Low carb and calorie diet 2. Avoid snack and beverage between meal and at bedtime Total time spent on this encounter on this date of service, including pre-visit review of separately obtained history, [id number] interaction performing medically appropriate physical exam, patientcounseling/education, interpretation of diagnostic results, care coordination and documentation was31 minute Naomi Sanches MD 08/27/2020 documented in this encounter Plan of Treatment Not on file documented as of this encounter Procedures Procedure Name Priority Date/Time Associated Diagnosis Comments POCT GLYCOSYLATED HEMOGLOBIN Routine 08/27/2020 3:25 PM CDT Type 1 diabetes mellitus without complication (HCC) documented in this encounter Results * (ABNORMAL) POCT GLYCOSYLATED HEMOGLOBIN (08/27/2020 3:25 PM CDT) HGB-A1C 6.2(A) 4 - 6 08/27/2020 3:25 PM CDT Naomi Sanches MD POINT OF CARE TESTING [...] adult documented in this encounter Care Teams Composite Layup Worker Relationship Specialty Start Date End Date Carrie Joseph PA [address] [address] PCP - General Adult Medicine 11/11/18 Naomi Sanches MD #[address] [phone] Consulting Physician Endocrinology 05/21/20 documented as of this encounter
--- OUTSIDE RECORDS SUMMARY | 2024-05-10 18:54 | XMS_ITS | Encounter Summary ---
Author Organization [facility] Address [address] [facility] [place] [address] Phone Care Team Providers Care Wrapping Checker Name Role Phone Carrie Joseph Primary Care Provider [phone] Naomi Sanches MD Unavailable Reason for Visit * Reason Comments Medication Refill Encounter Details Date Type Department Care Team (Late st Contact Info) Description 08/06/2021 Refill [facility] - Endocrinology - [place] #2 [place] [address] Naomi Sanches MD [address] [phone] Medication Refill Social History Tobacco [...] COVID-19? 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 Basaglar KwikPen 100 UNIT/ML Solution Pen-injector [Pharmacy Med Name: BASAGLAR 100 U/ML KWIKPEN INJ 3ML] 15 mL Sig: INJECT 15 UNITS UNDER THE SKIN EVERY NIGHT AT BEDTIME Next appt: 10/24/2021 documented in this encounter Plan of Treatment Not on file documented as of this encounter Visit Diagnoses Not on filedocumented in this encounter Care Teams Wrapping Checker Relationship Specialty Start Date End Date Carrie Joseph PA [address] [address] PCP - General Adult Medicine 11/11/18 Naomi Sanches MD #[address] [phone] Consulting Physician Endocrinology 05/21/20 documented as of this encounter
--- OUTSIDE RECORDS SUMMARY | 2024-05-10 18:54 | XMS_ITS | Encounter Summary ---
Author Organization [facility] Address [address] [facility] [place] [address] Phone Care Team Providers Care Software Development Intern Name Role Phone Carrie Joseph Primary Care Provider [phone] Naomi Sanches MD Unavailable Reason for Visit * Reason Onset Date Comments Medication Refill 05/21/2020 Encounter Details Date Type Department Care Team (Late st Contact Info) Description 05/21/2020 Telephone [facility] [address] [place] [phone] Naomi Sanches MD [address] [phone] Medication Refill Social History Tobacco [...] Telephone Encounter - Naomi Sanches MD - 05/21/2020 3:26 PM CST Rx sent ESSMAKER * Telephone Encounter - Lindy Keith - 05/21/2020 10:49 AM CST Pharmacy is requesting a script for insulin syringes States patient insurance is no longer paying for pens and patient now has to use vials and will need syringes ESSMAKER documented in this encounter Plan of Treatment Not on file documented as of this encounter Visit Diagnoses Not on filedocumented in this encounter Care Teams Software Development Intern Relationship Specialty Start Date End Date Carrie Joseph PA [address] [address] PCP - General Adult Medicine 11/11/18 Naoim Sanches MD #[address] [phone] Consulting Physician Endocrinology 05/21/20 documented as of this encounter
--- OUTSIDE RECORDS SUMMARY | 2024-05-10 18:54 | XMS_ITS | Encounter Summary ---
Author Organization [facility] Address [address] [place] [address] Phone Care Team Providers Care Locker Room Manager Name Role Phone Carrie Joseph Primary Care Provider [phone] Naomi Sanches MD Unavailable Reason for Visit * Reason Onset Date Comments High Blood Sugar 10/27/2021 Encounter Details Date Type Department Care Team (Late st Contact Info) Description 10/27/2021 Telephone [facility] - Endocrinology - [place] [address] [place] [address] Naomi Sanches MD [address] [id number] High Blood Sugar Social History Tobacco Use Types Packs/Day Years [...] Telephone Encounter - Charisma Carrington RN - 10/30/2021 4:26 PM CDT Patient scheduled. * Telephone Encounter - Naomi Sanches MD - 10/28/2021 1:00 PM CDT Please arrange office visit to discuss management of hyperglycemia w/ insulin pump. * Telephone Encounter - Charisma Carrington RN - 10/27/2021 3:56 PM CDT Call received from [facility] that patient was admitted with DKA. Will likely be discharged today. Patient is interested in an insulin pump. documented in this encounter Plan of Treatment Not on file documented as of this encounter Visit Diagnoses Not on filedocumented in this encounter Care Teams Locker Room Manager Relationship Specialty Start Date End Date Carrie Joseph PA [address] [address] PCP - General Adult Medicine 11/11/18 Naomi Sanches MD [address] [id number] Consulting Physician Endocrinology 05/21/20 documented as of this encounter
--- OUTSIDE RECORDS SUMMARY | 2024-05-10 18:54 | XMS_ITS | Encounter Summary ---
Author Organization [employer] Care Team Providers Care Shop Firer/Fireman Name Role Phone Carrie Joseph Primary Care Provider [phone] Naomi Sanches MD Unavailable Encounter Details Date Type Department Care Team (Latest Contact Info) Description 07/09/2021 Travel Social History Tobacco Use Types Packs/Day [...] COVID-19? 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
--- OUTSIDE RECORDS SUMMARY | 2024-05-10 18:54 | XMS_ITS | Encounter Summary ---
Author Organization [facility] Address [address] [facility] [place] [address] Phone Care Team Providers Care Tool Maintenance Technician Name Role Phone Carrie Joseph Primary Care Provider [phone] Naomi Sanches MD Unavailable Reason for Visit * Reason Comments Diabetes Mellitus Follow up Encounter Details Date Type Department Care Team (Late st Contact Info) Description 05/24/2020 3:00 PM COPPER MINER Office Visit [facility] - Endocrinology [facility] [address] [place] [address] Naomi Sanches MD #[address] [address] Type 1 diabetes mellitus without complication (HCC) (Primary Dx); Overweight; Hypoglycemia; Insulin dose changed (HCC) Discharge Disposition: Discharged [...] COVID-19? No / Unsure 05/24/2020 2:59 PM COPPER MINER documented as of this encounter Last Filed Vital Signs Vital Sign Reading Time Taken Comments Blood Pressure 100/54 05/24/2020 3:06 PM COPPER MINER Pulse 109 05/24/2020 3:06 PM COPPER MINER Temperature 36.2 ??C (97.1 ??F) 05/24/2020 3:06 PM CS T Respiratory Rate 16 05/24/2020 3:06 PM COPPER MINER Oxygen Saturation 99% 05/24/2020 3:06 PM COPPER MINER Inhaled Oxygen Concentration - - Weight 71.7 kg (158 lb) 05/24/2020 3:06 PM COPPER MINER Height 154.9 cm (5' 1 ) 05/24/2020 3:06 PM COPPER MINER Body Mass Index 29.85 05/24/2020 3:06 PM COPPER MINER documented in this encounter Patient Instructions * Patient Instructions* Naomi Sanches MD - 05/24/2020 3:00 PM COPPER MINER Please??increase??Basaglar??to 15??units at bedtime ?? Please??continue??Humalog??1 unit for 8??gm [...] clean and dry. ?? CORRECTION FACTOR: 1:50 ?? BLOOD GLUCOSE (SUGAR) CORRECTION FACTOR: 1:50 HUMALOG/NOVOLOG UNDER 70 TREAT LOW, USE RULE OF 15 71 - 150 +0 UNIT 151 - 200 +1 UNIT 201 - 250 +2 UNITS 251 - 300 +3 UNITS 301 - 350 +4 UNITS 351 - 400 +5 UNITS ABOVE 400 +6 UNITS ? ER MINER documented in this encounter Progress Notes * Naomi Sanches MD - 05/24/2020 3:00 PM CST Subject&Objective Karina Fuchs is a 24-year-old woman who comes to the Endocrinology office to discuss management of type 1 diabetes mellitus. The patient's diabetes is complicated by gastroparesis. Other pertinent health history includes overweight. The patient was initially diagnosed with diabetes approximately 10 years ago. Currently, the patient takes Basaglar 12 units at bedtime and Humalog 1 unit for every 8 gm of CHO before each meal for management of hyperglycemia. Her insulin sensitivity factor is 1:50 if CBG is above 150 mg/dL. The patient reports occasional, mild hypoglycemic events with intact symptoms of hypoglycemia awareness. The patient denied severe low blood sugar events requiring third constitution party intervention. Unfortunately, the patient did not bring her glucose meter for download or a logbook for review at today's office appointment. Ms. Fuchs reported (checks 4 times a day) that morning blood sugarshave been running mostly between 160 and 250 mg/dL with blood sugars checked at other times of the day in the range of 100 to 150 mg/ dL. Hemoglobin A1c obtained in March 2020 was 7.8%, improved from the previous measurement of 8.4% obtained in November 2019. Physical Exam Vitals: 05/24/20 1506 BP: 100/54 BP Location: Left Arm BP Position: Sitting BP Cuff Size: Large Pulse: 109 Resp: 16 Temp: 97.1 ??F (36.2 ??C) TempSrc: Tympanic SpO2: 99% Weight: 158 lb (71.7 kg) Height: 5' 1 (1.549 m) Constitutional: appears well-developed and well-nourished. No acute distress. Head: Normocephalic and atraumatic. Cardiovascular: Normal rate and regular rhythm Pulmonary/Chest: Effort normal and breath sounds normal Abdominal: No lipohypertrophy at injection sites Hb A1c checked on Mar 17, 2020 was 7.8% Lab Results Component Value Date HGBA1C 9.0 (A) 11/16/2019 Assessment and Plan Karina Fuchs is a young woman with type 1 diabetes mellitus whose glycemic control was suboptimalbased on both review of her capillary blood glucose report and hemoglobin A1c measurement (checked in Mar 2020). Rising in blood sugar from HS to AM indicates that current basal insulin coverage is not sufficient. She is interested in insulin pump for management of type 1 diabetes. Treatment conside ration and lifestyle modification were discussed with her at some length. She will raise Basaglar to 15 units at bedtime and continue Humalog 1 unit for every 8 gm of CHO before each meal. The patient will return for office reevaluation in 3 months. PLAN: 1. Increase Basaglar to 15 units at bedtime 2. Take Humalog 1 unit for every 8 gm of CHO before each meal 3. Correctional factor insulin dosed at 1:50 if CBG is > 150 mg/dl 4. Monitor blood sugar QAC/QHS 5. Bring CBG log for review 6. Contact Endocrinology Clinic for low blood sugar events 7. Apply for an insulin pump and sensor 8. RTC in 3 months Overweight PLAN: 1. Low carb and calorie diet 2. Avoid snack and beverage between meal and at bedtime Hypoglycemia PLAN: 1. Consistent CHO diet 2. Rule of 15 ??? I reviewed hemoglobin A1c test result ??? I reviewed capillary blood glucose report ??? I reviewed her labs posted in [employer]. ??? I reviewed her previous medical record from other provider ??? I spent 32 min preparing the medical chart to see the patient, performing her medical evaluation, counseling the patient, and making today's office visit note. Naomi Sancehs MD 05/24/2020 ER MINER documented in this encounter Plan of Treatment Not on file documented as of this encounter Visit Diagnoses Diagnosis Type 1 diabetes mellitus without complication (HCC)- Primary Type I (juvenile type) diabetes mellitus without mention of complication, not stated as uncontrolled Overweight Hypoglycemia Hypoglycemia, unspecified Insulin dose changed (HCC) documented in this encounter Care Teams Tool Maintenance Technician Relationship Specialty Start Date End Date Carrie Joseph PA [address] [facility] [address] [place], [place] [id number] PCP - General Adult Medicine 11/11/18 Naomi Sanches MD [address] [phone] Consulting Physician Endocrinology 05/21/20 documented as of this encounter
--- OUTSIDE RECORDS SUMMARY | 2024-05-10 18:54 | XMS_ITS | Encounter Summary ---
Author Organization [facility] Address [address] [place] [address] Phone Care Team Providers Care Turf Grower Name Role Phone Carrie Joseph Primary Care Provider [phone] Naomi Sanches MD Unavailable Reason for Referral * Radiology Services (Routine) - Closed Specialty Diagnoses / Procedures Referred By Rachael frey Referred To Contact Radiology Diagnoses Nausea and vomiting, intractability of vomiting not specified, unspecified vomiting type Gastroparesis Procedures NM GASTRIC EMPTYING STUDY Samaria Baez, PAC [address] [place] [address] Phone: tel: fax: Referral ID Status Reason Start Date Expiration Date Visits Re quested Visits Authorized [id number] Closed 05/08/2021 1 1 AMBULATORY ANALYST * Other (Routine) - Canceled Specialty Diagnoses / Procedures Referred By Rachael frey Referred To Contact Gastroenterology Diagnoses Nausea and vomiting, intractability of vomiting not specified, unspecified vomiting type Esophagitis Gastroparesis Procedures GASTRO PROCEDURE Samaria Baez, PAC [address] [place] [address] Phone: tel: fax: Referral ID Status Reason Start Date Expiration Date V isits Requested Visits Authorized [id number] Canceled 05/08/2021 1 1 AMBULATORY ANALYST Reason for Visit * Reason Comments New Patient Nausea Vomiting * Consult, Test & Initiate Treatment (Routine) - Closed Specialty Diagnoses / Procedures Referred By Contact Referred To Contact Gastroenterology Diagnoses Nausea and vomiting, intractability of vomiting not specified, unspecified vomiting type Naomi Sanches MD [address] [address] Phone: tel:[phone] fax:[phone] [facility] [address] [place] [address] Phone: tel: fax: Referral ID Status Reason Start Date Expiration Date Visits Re quested Visits Authorized [id number] Closed 11/28/2020 1 1 Encounter Details Date Type Department Care Team (Latest Contact Info) Description 05/08/2021 1:00 PM EPIC AMBULATORY ANALYST Office Visit [facility] [address] [place] [address] Samaria Baez Gale, PAC [address] [place] [address] Nausea and vomiting, intractability of vomiting not specified, unspecified vomiting type (Primary Dx); Esophagitis; Gastroparesis; Gastroesophageal reflux disease with esophagitis without hemorrhage Discharge Disposition: Discharged to home or Selfcare [...] COVID-19? No / Unsure 05/08/2021 12:49 PM EPIC AMBULATORY ANALYST documented as of this encounter Last Filed Vital Signs Vital Sign Reading Time Taken Comments Blood Pressure 116/64 05/08/2021 12:56 PM EPIC AMBULATORY ANALYST Pulse 101 05/08/2021 12:56 PM EPIC AMBULATORY ANALYST Temperature 37 ??C (98.6 ??F) 05/08/2021 12:56 PM EPIC AMBULATORY ANALYST Respiratory Rate 20 05/08/2021 12:56 PM EPIC AMBULATORY ANALYST Oxygen Saturation 100% 05/08/2021 12:56 PM EPIC AMBULATORY ANALYST Inhaled Oxygen Concentration - - Weight 67.6 kg (149 lb) 05/08/2021 12:56 PM EPIC AMBULATORY ANALYST Height 154.9 cm (5' 1 ) 05/08/2021 12:56 PM EPIC AMBULATORY ANALYST Body Mass Index 28.15 05/08/2021 12:56 PM EPIC AMBULATORY ANALYST documented in this encounter Patient Instructions * Patient Instructions* Samaria Baez, NICOLE - 05/08/2021 1:00 PM EPIC AMBULATORY ANALYST Images from the original note were not included. Use omeprazole 20 mg 1 tab a.m. and p.m. - be sure to take 30 minutes before a meal containing protein May use famotidine 20 mg 1 tab am and pm or Tums for breakthrough Avoid eating 3-4 hours prior to bed May need to elevate head of bed approximately 45??. Avoid frequent/chronic use of NSAIDs such as ibuprofen/naproxen May use acetaminophen/ Tylenol arthritis as needed. Avoid fried/ greasy/ spicy foods/ red sauces/ citrus especially in the evening Reduce caffeine/ carbonated beverages/alcohol/tobacco/ marijuana If you were advised to have a procedure and have not heard from our office to schedule within 2 weeks please call. Natural fibers: all bran/ raisin bran/ fiber one/ oats Fruits such as apples/ pears/ prunes and juices of same may stimulate bowels- warm juice works best Bananas can cause constipation Be sure to get at least 64 ounces of water a day Add generic benefiber 2 tbsp daily Probiotic-highest colony count you can afford to purchase on a routine basis May use MiraLax daily-if stools become too soft reduce to 1/2 regular dose. If no BM in 3 days, may use Miralax as directed and repeat approximately every 4 hours until BM (nomore than 5 x per day) or milk of magnesia 2 tbsp at bedtime Await egd and gastric emptying study If you had lab work ordered at this visit, we will contact you regarding the results once all results have been received and reviewed. You may be able to see results in your my chart as they come in, please remember the computer is only given parameters for what is ???normal?? or ???abnormal?? .The significance of anything in the ???abnormal?? range is based on the remaining test results. Aga in we will contact you when we have received and reviewed all the results. If you were advised to have a procedure and have not heard from our office to schedule within 2 weeks please call. If you were advised to have referral to or procedure at an outside facility and have not heard fromthat facility in 2-4 weeks call us. Please check in at the front desk lead/ registration at least 15 minutes prior to all appointments. Please schedule follow-up in near future to discuss any concerns that were not addressed fully at today's office visit. To continue to provide excellent patient care, you may receive a survey regarding your visit today.To help us serve you better, please complete and return. These surveys are completely anonymous. If you have any concerns/ questions regarding today's visit please call. [employer]'s Current Therapy 2020 (pp. [id number]). [place]: [employer]. > Gastroesophageal Reflux Disease, Adult Gastroesophageal reflux (BRIAN) happens when acid from the stomach flows up into the tube that connects the mouth and the stomach (esophagus). Normally, food travels down the esophagus and stays in thestomach to be digested. However, when a person has BRIAN, food and stomach acid sometimes move back up into the esophagus. If this becomes a more serious problem, the person may be diagnosed with a disease called gastroesophageal reflux disease (GERD). GERD occurs when the reflux: ?? Happens often. ?? Causes frequent or severe symptoms. ?? Causes problems such as damage to the esophagus. When stomach acid comes in contact with the esophagus, the acid may cause soreness (inflammation) in the esophagus. Over time, GERD may create small holes (ulcers) in the lining of the esophagus. What are the causes? This condition is caused by a problem with the muscle between the esophagus and the stomach (lower esophageal sphincter, or LES). Normally, the LES muscle closes after food passes through the esophagus to the stomach. When the LES is weakened or abnormal, it does not close properly, and that allowsfood and stomach acid to go back up into the esophagus. The LES can be weakened by certain dietary substances, medicines, and medical conditions, including: ?? Tobacco use. ?? . ?? Having a hiatal hernia. ?? Alcohol use. ?? Certain foods and beverages, such as coffee, chocolate, onions, and peppermint. What increases the risk? You are more likely to develop this condition if you: ?? Have an increased body weight. ?? Have a connective tissue disorder. ?? Use NSAID medicines. What are the signs or symptoms? Symptoms of this condition include: ?? Heartburn. ?? Difficult or painful swallowing. ?? The feeling of having a lump in the throat. ?? A??bitter taste in the mouth. ?? Bad breath. ?? Having a large amount of saliva. ?? Having an upset or bloated stomach. ?? Belching. ?? Chest pain. Different conditions can cause chest pain. Make sure you see your health care provider if you experience chest pain. ?? Shortness of breath or wheezing. ?? Ongoing (chronic) cough or a night-time cough. ?? Wearing away of tooth enamel. ?? Weight loss. How is this diagnosed? Your health care provider will take a medical history and perform a physical exam. To determine if you have mild or severe GERD, your health care provider may also monitor how you respond to treatment. You may also have tests, including: ?? A test to examine your stomach and esophagus with a small camera (endoscopy). ?? A test that??measures the acidity level in your esophagus. ?? A test that??measures how much pressure is on your esophagus. ?? A barium swallow or modified barium swallow test to show the shape, size, and functioning of your esophagus. How is this treated? The goal of treatment is to help relieve your symptoms and to prevent complications. Treatment for this condition may vary depending on how severe your symptoms are. Your health care provider may recommend: ?? Changes to your diet. ?? Medicine. ?? Surgery. Follow these instructions at home: Eating and drinking ?? Follow a diet as recommended by your health care provider. This may involve avoiding foods and drinks such as: ? Coffee and tea (with or without caffeine). ? Drinks that contain??alcohol. ? Energy drinks and sports drinks. ? Carbonated drinks or sodas. ? Chocolate and cocoa. ? Peppermint and mint flavorings. ? Garlic and onions. ? Horseradish. ? Spicy and acidic foods, including peppers, chili powder, graahm powder, vinegar, hot sauces, and barbecue sauce. ? King fruit juices and citrus fruits, such as oranges, suad, and limes. ? Tomato-based foods, such as red sauce, chili, salsa, and pizza with red sauce. ? Fried and fatty foods, such as donuts, ivorian fries, potato chips, and high- fat dressings. ? High-fat meats, such as hot dogs and fatty cuts of red and white meats, such as rib eye steak, sausage, ham, and boswell. ? High-fat dairy items, such as whole milk, butter, and cream cheese. ?? Eat small, frequent meals instead of large meals. ?? Avoid drinking large amounts of liquid with your meals. ?? Avoid eating meals during the 2-3 hours before bedtime. ?? Avoid lying down right after you eat. ?? Do not exercise right after you eat. Lifestyle ?? Do not use any products that contain nicotine or tobacco, such as cigarettes, e-cigarettes, and chewing tobacco. If you need help quitting, ask your health care provider. ?? Try to reduce your stress by using methods such as yoga or meditation. If you need help reducingstress, ask your health care provider. ?? If you are overweight, reduce your weight to an amount that is healthy for you. Ask your health care provider for guidance about a safe weight loss goal. General instructions ?? Pay attention to any changes in your symptoms. ?? Take itqr-ogz-tjcdnrn and prescription medicines only as told by your health care provider. Do not take aspirin, ibuprofen, or other NSAIDs unless your health care provider told you to do so. ?? Wear loose-fitting clothing. Do not wear anything tight around your waist that causes pressure on your abdomen. ?? Raise (elevate) the head of your bed about 6 inches (15 cm). ?? Avoid bending over if this makes your symptoms worse. ?? Keep all follow-up visits as told by your health care provider. This is important. Contact a health care provider if: ?? You have: ? New symptoms. ? Unexplained weight loss. ? Difficulty swallowing or it hurts to swallow. ? Wheezing or a persistent cough. ? A hoarse voice. ?? Your symptoms do not improve with treatment. Get help right away if you: ?? Have pain in your arms, neck, jaw, teeth, or back. ?? Feel sweaty, dizzy, or light-headed. ?? Have chest pain or shortness of breath. ?? Vomit and your vomit looks like blood or coffee grounds. ?? Faint. ?? Have stool that is bloody or black. ?? Cannot swallow, drink, or eat. Summary ?? Gastroesophageal reflux happens when acid from the stomach flows up into the esophagus. GERD is a disease in which the reflux happens often, causes frequent or severe symptoms, or causes problems such as damage to the esophagus. ?? Treatment for this condition may vary depending on how severe your symptoms are. Your health care provider may recommend diet and lifestyle changes, medicine, or surgery. ?? Contact a health care provider if you have new or worsening symptoms. ?? Take grhp-bqj-csfmkem and prescription medicines only as told by your health care provider. Do not take aspirin, ibuprofen, or other NSAIDs unless your health care provider told you to do so. ?? Keep all follow-up visits as told by your health care provider. This is important. This information is not intended to replace advice given to you by your health care provider. Make sure you discuss any questions you have with your health care provider. Document Revised: 10/26/2018 Document Reviewed: 10/26/2018 [employer] Patient Education ?? 2020 [employer]. Gastroparesis Gastroparesis is a condition in which food takes longer than normal to empty from the stomach. Thiscondition is also known as delayed gastric emptying. It is usually a long-term (chronic) condition. There is no cure, but there are treatments and things that you can do at home to help relieve symptoms. Treating the underlying condition that causes gastroparesis can also help relieve symptoms. What are the causes? In many cases, the cause of this condition is not known. Possible causes include: ?? A hormone (endocrine) disorder, such as hypothyroidism or diabetes. ?? A nervous system disease, such as Parkinson's disease or multiple sclerosis. ?? Cancer, infection, or surgery that affects the stomach or vagus nerve. The vagus nerve runs fromyour chest, through your neck, and to the lower part of your brain. ?? A connective tissue disorder, such as scleroderma. ?? Certain medicines. What increases the risk? You are more likely to develop this condition if: ?? You have certain disorders or diseases. These may include: ? An endocrine disorder. ? An eating disorder. ? Amyloidosis. ? Scleroderma. ? Parkinson's disease. ? Multiple sclerosis. ? Cancer or infection of the stomach or the vagus nerve. ?? You have had surgery on your stomach or vagus nerve. ?? You take certain medicines. ?? You are female. What are the signs or symptoms? Symptoms of this condition include: ?? Feeling full after eating very little or a loss of appetite. ?? Nausea, vomiting, or heartburn. ?? Bloating of your abdomen. ?? Inconsistent blood sugar (glucose) levels on blood tests. ?? Unexplained weight loss. ?? Acid from the stomach coming up into the esophagus (gastroesophageal reflux). ?? Sudden tightening (spasm) of the stomach, which can be painful. Symptoms may come and go. Some people may not notice any symptoms. How is this diagnosed? This condition is diagnosed with tests, such as: ?? Tests that check how long it takes food to move through the stomach and intestines. These tests include: ? Upper gastrointestinal (GI) series. For this test, you drink a liquid that shows up well on X-rays, and then X-rays are taken of your intestines. ? Gastric emptying scintigraphy. For this test, you eat food that contains a small amount of radioactive material, and then scans are taken. ? Wireless capsule GI monitoring system. For this test, you swallow a pill (capsule) that records information about how foods and fluid move through your stomach. ?? Gastric manometry. For this test, a tube is passed down your throat and into your stomach to measure electrical and muscular activity. ?? Endoscopy. For this test, a long, thin tube with a camera and light on the end is passed down your throat and into your stomach to check for problems in your stomach lining. ?? Ultrasound. This test uses sound waves to create images of the inside of your body. This can help rule out gallbladder disease or pancreatitis as a cause of your symptoms. How is this treated? There is no cure for this condition, but treatment and home care may relieve symptoms. Treatment may include: ?? Treating the underlying cause. ?? Managing your symptoms by making changes to your diet and exercise habits. ?? Taking medicines to control nausea and vomiting and to stimulate stomach muscles. ?? Getting food through a feeding tube in the hospital. This may be done in severe cases. ?? Having surgery to insert a device called a gastric electrical stimulator into your body. This device helps improve stomach emptying and control nausea and vomiting. Follow these instructions at home: ?? Take opgj-lzj-sejtpsp and prescription medicines only as told by your health care provider. ?? Follow instructions from your health care provider about eating or drinking restrictions. Your health care provider may recommend that you: ? Eat smaller meals more often. ? Eat low-fat foods. ? Eat low-fiber forms of high-fiber foods. For example, eat cooked vegetables instead of raw vegetables. ? Have only liquid foods instead of solid foods. Liquid foods are easier to digest. ?? Drink enough fluid to keep your urine pale yellow. ?? Exercise as often as told by your health care provider. ?? Keep all follow-up visits. This is important. Contact a health care provider if you: ?? Notice that your symptoms do not improve with treatment. ?? Have new symptoms. Get help right away if you: ?? Have severe pain in your abdomen that does not improve with treatment. ?? Have nausea that is severe or does not go away. ?? Vomit every time you drink fluids. Summary ?? Gastroparesis is a long-term (chronic) condition in which food takes longer than normal to emptyfrom the stomach. ?? Symptoms include nausea, vomiting, heartburn, bloating of your abdomen, and loss of appetite. ?? Eating smaller portions, low-fat foods, and low-fiber forms of high-fiber foods may help you manage your symptoms. ?? Get help right away if you have severe pain in your abdomen. This information is not intended to replace advice given to you by your health care provider. Make sure you discuss any questions you have with your health care provider. Document Revised: 08/26/2020 Document Reviewed: 08/26/2020 [employer] Patient Education ?? 2020 [employer] Low-FODMAP Eating Plan FODMAP stands for fermentable oligosaccharides, disaccharides, monosaccharides, and polyols. These are sugars that are hard for some people to digest. A low- FODMAP eating plan may help some people who have irritable bowel syndrome (IBS) and certain other bowel (intestinal) diseases to manage their symptoms. This meal plan can be complicated to follow. Work with a diet and nutritionalist (dietitian) to make a low-FODMAP eating plan that is right for you. A dietitian can help make sure that you get enough nutrition from this diet. What are tips for following this plan? Reading food labels ?? Check labels for hidden FODMAPs such as: ? High-fructose syrup. ? Honey. ? Agave. ? Natural fruit flavors. ? Onion or garlic powder. ?? Choose low-FODMAP foods that contain 3-4 grams of fiber per serving. ?? Check food labels for serving sizes. Eat only one serving at a time to make sure FODMAP levels stay low. Shopping ?? Shop with a list of foods that are recommended on this diet and make a meal plan. Meal planning ?? Follow a low-FODMAP eating plan for up to 6 weeks, or as told by your health care provider or dietitian. ?? To follow the eating plan: 1. Eliminate high-FODMAP foods from your diet completely. Choose only low-FODMAP foods to eat. You will do this for 2-6 weeks. 2. Gradually reintroduce high-FODMAP foods into your diet one at a time. Most people should wait a few days before introducing the next new high-FODMAP food into their meal plan. Your dietitian can recommend how quickly you may reintroduce foods. 3. Keep a daily record of what and how much you eat and drink. Make note of any symptoms that you have after eating. 4. Review your daily record with a dietitian regularly to identify which foods you can eat and which foods you should avoid. General tips ?? Drink enough fluid each day to keep your urine pale yellow. ?? Avoid processed foods. These often have added sugar and may be high in FODMAPs. ?? Avoid most dairy products, whole grains, and sweeteners. ?? Work with a dietitian to make sure you get enough fiber in your diet. ?? Avoid high FODMAP foods at meals to manage symptoms. Recommended foods Fruits Bananas, oranges, tangerines, suad, limes, blueberries, raspberries, strawberries, grapes, cantaloupe, honeydew melon, kiwi, papaya, passion fruit, and pineapple. Limited amounts of dried cranberries, banana chips, and shredded coconut. Vegetables Eggplant, zucchini, cucumber, peppers, green beans, kinney sprouts, lettuce, arugula, kale, [place] chard, spinach, rodolfo greens, bok rene, summer squash, potato, and tomato. Limited amounts of corn, carrot, and sweet potato. Green parts of scallions. Grains Gluten-free grains, such as rice, oats, buckwheat, quinoa, corn, polenta, and millet. Gluten-free pasta, bread, or cereal. Rice noodles. [place] tortillas. Meats and other proteins Unseasoned beef, pork, poultry, or fish. Eggs. Boswell. Tofu (firm) and tempeh. Limited amounts of nuts and seeds, such as almonds, walnuts, brazil nuts, pecans, peanuts, nut butters, pumpkin seeds, neli seeds, and sunflower seeds. Dairy Lactose-free milk, yogurt, and kefir. Lactose-free cottage cheese and ice cream. Non-dairy milks, such as almond, coconut, hemp, and rice milk. Non-dairy yogurt. Limited amounts of goat cheese, brie,mozzarella, parmesan, swedish, and other hard cheeses. Fats and oils Butter-free spreads. Vegetable oils, such as olive, canola, and sunflower oil. Seasoning and other foods Artificial sweeteners with names that do not end in ol, such as aspartame, saccharine, and stevia. Maple syrup, white table sugar, raw sugar, brown sugar, and molasses. Mayonnaise, soy sauce, and tamari. Fresh basil, coriander, parsley, jennifer, and thyme. Beverages Water and mineral water. Sugar-sweetened soft drinks. Small amounts of orange juice or cranberry juice. Black and green tea. Most dry araceli. Coffee. The items listed above may not be a complete list of foods and beverages you can eat. Contact a dietitian for more information. Foods to avoid Fruits Fresh, dried, and juiced forms of apple, pear, watermelon, peach, plum, cherries, apricots, blackberries, boysenberries, figs, nectarines, and roseanne. Avocado. Vegetables Chicory root, artichoke, asparagus, cabbage, snow peas, [place] sprouts, broccoli, sugar snap peas, mushrooms, celery, and cauliflower. Onions, garlic, leeks, and the white part of scallions. Grains Wheat, including kamut, durum, and semolina. Barley and bulgur. Couscous. Wheat- based cereals. Wheat noodles, bread, crackers, and pastries. Meats and other proteins Fried or fatty meat. Sausage. Cashews and pistachios. Soybeans, baked beans, black beans, chickpeas, kidney beans, elian beans, navy beans, lentils, black- eyed peas, and split peas. Dairy Milk, yogurt, ice cream, and soft cheese. Cream and sour cream. Milk-based sauces. Custard. Buttermilk. Soy milk. Seasoning and other foods Any sugar-free gum or candy. Foods that contain artificial sweeteners such as sorbitol, mannitol, isomalt, or xylitol. Foods that contain honey, high-fructose corn syrup, or agave. Bouillon, vegetable stock, beef stock, and chicken stock. Garlic and onion powder. Condiments made with onion, such ashummus, chutney, pickles, relish, salad dressing, and salsa. Tomato paste. Beverages Chicory-based drinks. Coffee substitutes. Chamomile tea. Fennel tea. Sweet or fortified araceli such as port or alyssa. Diet soft drinks made with isomalt, mannitol, maltitol, sorbitol, or xylitol. Apple, pear, and roseanne juice. Juices with high-fructose corn syrup. The items listed above may not be a complete list of foods and beverages you should avoid. Contact a dietitian for more information. Summary ?? FODMAP stands for fermentable oligosaccharides, disaccharides, monosaccharides, and polyols. These are sugars that are hard for some people to digest. ?? A low-FODMAP eating plan is a short-term diet that helps to ease symptoms of certain bowel diseases. ?? The eating plan usually lasts up to 6 weeks. After that, high-FODMAP foods are reintroduced gradually and one at a time. This can help you find out which foods may be causing symptoms. ?? A low-FODMAP eating plan can be complicated. It is best to work with a dietitian who has experience with this type of plan. This information is not intended to replace advice given to you by your health care provider. Make sure you discuss any questions you have with your health care provider. Document Revised: 09/05/2020 Document Reviewed: 09/05/2020 [employer] Patient Education ?? 2020 [employer] AMBULATORY ANALYST AMBULATORY ANALYST AMBULATORY ANALYST documented in this encounter Progress Notes * Samaria Baez PAC - 05/08/2021 1:00 PM CST Images from the original note were not included. PROBLEM LIST: Patient Active Problem List Diagnosis ??? Diabetic ketoacidosis associated with type 1 diabetes mellitus (HCC) ??? Hyperkalemia ??? Hypernatremia ??? Type 1 diabetes mellitus without complication (HCC) ??? Hypoglycemia ??? Class 1 obesity due to excess calories with serious comorbidity and body mass index (BMI) of 32.0 to 32.9 in adult Karina Fuchs is a . 25 y.o. female who presents with Chief Complaint Patient presents with ??? New Patient ??? Nausea ??? Vomiting . DIAGNOSIS, PLAN AND FOLLOW UP: Diagnoses and all orders for this visit: Nausea and vomiting, intractability of vomiting not specified, unspecified vomiting type - GASTROENTEROLOGY REFERRAL - GASTRO PROCEDURE; Future - NM GASTRIC EMPTYING STUDY; Future - ondansetron (ZOFRAN-ODT) 4 MG TABLET DISPERSIBLE; Take 1 Tablet by mouth every 8 hours as needed for Nausea - 1st line. Esophagitis - GASTRO PROCEDURE; Future Gastroparesis - GASTRO PROCEDURE; Future - NM GASTRIC EMPTYING STUDY; Future Gastroesophageal reflux disease with esophagitis without hemorrhage - omeprazole (PriLOSEC) 20 MG CAPSULE DELAYED RELEASE; Take 1 Capsule by mouth 2 times daily (before meals). Take 30 minutes before meal with protein S: NPE. Referred by Dr. Sanches for chronic nausea and vomiting. States started in 2017 was told gastroparesis. Had EGD- 02/15/2019 extensive esophagitis. No follow up EGD. Decreased appetite. Early satiety. Heartburn/ reflux- all the time- has used Zantac in past. Currently not taking anything. Reports nausea/ vomiting- comes and goes- may be a couple of weeks or a couple of days- more nausea than vomiting. Denies abdominal pain. Constipation alternating diarrhea. May go up to 5 days without a BM or will have very small hard dry stools. Will develop diarrhea after 2-3 days and will last for 2-3 days. Will use OTC stool softener. Uses pepto for diarrhea. Denies mucus or blood in stools/ toilet or on tissue. Denies black or tarry stools. Denies change to size/ shape/ caliber of stools. Denies weight loss/ malaise/ fatigue. Denies sore throat/ hoarseness/ difficulty swallowing/ feeling of foreign body in throat. Denies yellowish discoloration to eyes or skin. Denies chest pain/ pressure/ heaviness/ tightness. Palpitation. Denies cough/ sob/ wheezing. No prior colonoscopy. No family hx gi cancers. ALLERGIES: No Known Allergies MEDICATIONS: Current Outpatient Medications Medication Sig Dispense Refill ??? Basaglar KwikPen 100 UNIT/ML Solution Pen-injector INJECT 15 UNITS SUBCUTANEOUSLY NIGHTLY 15 mL1 ??? Glucose Blood (BLOOD GLUCOSE TEST STRIPS) Strip 1 Strip by Does not apply route 4 times daily. 400 Each 3 ??? Insulin Lispro, 1 Unit Dial, 100 UNIT/ML Solution Pen-injector INJECT 1 UNIT FOR EVERY 7-8 GM OF CARBOHYDRATES BEFORE EACH MEAL. ISF OF 1:40 IF >140MG/DL. UP TO 50 UNITS PER DAY. 45 mL 1 ??? Insulin Syringe-Needle U-100 (INSULIN SYRINGE 1CC/31GX5/16 ) 31G X 5/16 1 ML Misc 4 times a day 400 Each 3 ??? omeprazole (PriLOSEC) 20 MG CAPSULE DELAYED RELEASE Take 1 Capsule by mouth 2 times daily (before meals). Take 30 minutes before meal with protein 180 Capsule 1 ??? ondansetron (ZOFRAN-ODT) 4 MG TABLET DISPERSIBLE Take 1 Tablet by mouth every 8 hours as neededfor Nausea - 1st line. 15 Tablet 0 ??? ReliOn Pen [place] 32G X 4 MM Misc 4 times a day 400 Pen Needle 3 No current facility-administered medications for this visit. PMS/H: Past Medical History Positives Diagnosis Date ??? Diabetes mellitus (HCC) ??? Gastroparesis Past Surgical History: Procedure Laterality Date ??? SECTION ??? TONSILLECTOMY SOCIAL: Social History Socioeconomic History ??? Marital status: Single Spouse name: Not on file ??? Number of children: Not on file ??? Years of education: Not on file ??? Highest education level: Not on file Occupational History ??? Not on file Tobacco Use ??? Smoking status: Never Smoker ??? Smokeless tobacco: Never Used Vaping Use ??? Vaping Use: Never used Substance and Sexual Activity ??? Alcohol use: Yes Comment: rare ??? Drug use: No ??? Sexual activity: Yes Partners: Male Other Topics Concern ??? Not on file Social History Narrative ??? Not on file Social Determinants of Health Social determinant risk not applicable to this patient. FAMILY HX: Family History Problem Relation Age of Onset ??? Anemia Mother VITAL SIGNS: Vitals: 05/08/21 1256 BP: 116/64 Pulse: 101 Resp: 20 Temp: 98.6 ??F (37 ??C) SpO2: 100% Weight: 149 lb (67.6 kg) Height: 5' 1 (1.549 m) GENERAL EXAM: GENERAL: Well developed, well nourished, in no acute distress. AAO x3. Cooperative. HEENT: Normocephalic. PERRLA. Nonicteric. NECK: Supple/ non tender/ full ROM LYMPH NODES: No adenopathy. CARDIOVASCULAR: RRR/ S1S2/ No m/g/c/r. PULMONARY: Respirations easy and regular. Breath sounds clear bilaterally. No rhonchi/ rales/ wheezes. GI: Abdomen soft, nondistended. No tenderness, rebound, guarding or masses. No hepatosplenomegaly. Bowel sounds normoactive. MUSCULOSKELETAL: No CVA tenderness. Normal gait and movement of extremities. No tenderness/ swelling/ crepitus. SKIN: General-warm, pink and dry. No rashes/ lesions. PSYCHIATRIC: Euthymic. Affect congruent with mood. Normal thought process. Return if symptoms worsen or fail to improve. Medication changes/ treatment plan reviewed. Risks and benefits discussed. Expressed understanding. Patient Instructions Use omeprazole 20 mg 1 tab a.m. and p.m. - be sure to take 30 minutes before a meal containing protein May use famotidine 20 mg 1 tab am and pm or Tums for breakthrough Avoid eating 3-4 hours prior to bed May need to elevate head of bed approximately 45??. Avoid frequent/chronic use of NSAIDs such as ibuprofen/naproxen May use acetaminophen/ Tylenol arthritis as needed. Avoid fried/ greasy/ spicy foods/ red sauces/ citrus especially in the evening Reduce caffeine/ carbonated beverages/alcohol/tobacco/ marijuana If you were advised to have a procedure and have not heard from our office to schedule within 2 weeks please call. Natural fibers: all bran/ raisin bran/ fiber one/ oats Fruits such as apples/ pears/ prunes and juices of same may stimulate bowels- warm juice works best Bananas can cause constipation Be sure to get at least 64 ounces of water a day Add generic benefiber 2 tbsp daily Probiotic-highest colony count you can afford to purchase on a routine basis May use MiraLax daily-if stools become too soft reduce to 1/2 regular dose. If no BM in 3 days, may use Miralax as directed and repeat approximately every 4 hours until BM (nomore than 5 x per day) or milk of magnesia 2 tbsp at bedtime Await egd and gastric emptying study If you had lab work ordered at this visit, we will contact you regarding the results once all results have been received and reviewed. You may be able to see results in your my chart as they come in, please remember the computer is only given parameters for what is ???normal?? or ???abnormal?? .The significance of anything in the ???abnormal?? range is based on the remaining test results. Aga in we will contact you when we have received and reviewed all the results. If you were advised to have a procedure and have not heard from our office to schedule within 2 weeks please call. If you were advised to have referral to or procedure at an outside facility and have not heard fromthat facility in 2-4 weeks call us. Please check in at the front desk lead/ registration at least 15 minutes prior to all appointments. Please schedule follow-up in near future to discuss any concerns that were not addressed fully at today's office visit. To continue to provide excellent patient care, you may receive a survey regarding your visit today.To help us serve you better, please complete and return. These surveys are completely anonymous. If you have any concerns/ questions regarding today's visit please call. [employer] Current Therapy 2020 (pp. [id number]). Conchita PA: [employer]. > Gastroesophageal Reflux Disease, Adult Gastroesophageal reflux (BRIAN) happens when acid from the stomach flows up into the tube that connects the mouth and the stomach (esophagus). Normally, food travels down the esophagus and stays in thestomach to be digested. However, when a person has BRIAN, food and stomach acid sometimes move back up into the esophagus. If this becomes a more serious problem, the person may be diagnosed with a disease called gastroesophageal reflux disease (GERD). GERD occurs when the reflux: ?? Happens often. ?? Causes frequent or severe symptoms. ?? Causes problems such as damage to the esophagus. When stomach acid comes in contact with the esophagus, the acid may cause soreness (inflammation) in the esophagus. Over time, GERD may create small holes (ulcers) in the lining of the esophagus. What are the causes? This condition is caused by a problem with the muscle between the esophagus and the stomach (lower esophageal sphincter, or LES). Normally, the LES muscle closes after food passes through the esophagus to the stomach. When the LES is weakened or abnormal, it does not close properly, and that allowsfood and stomach acid to go back up into the esophagus. The LES can be weakened by certain dietary substances, medicines, and medical conditions, including: ?? Tobacco use. ?? . ?? Having a hiatal hernia. ?? Alcohol use. ?? Certain foods and beverages, such as coffee, chocolate, onions, and peppermint. What increases the risk? You are more likely to develop this condition if you: ?? Have an increased body weight. ?? Have a connective tissue disorder. ?? Use NSAID medicines. What are the signs or symptoms? Symptoms of this condition include: ?? Heartburn. ?? Difficult or painful swallowing. ?? The feeling of having a lump in the throat. ?? A??bitter taste in the mouth. ?? Bad breath. ?? Having a large amount of saliva. ?? Having an upset or bloated stomach. ?? Belching. ?? Chest pain. Different conditions can cause chest pain. Make sure you see your health care provider if you experience chest pain. ?? Shortness of breath or wheezing. ?? Ongoing (chronic) cough or a night-time cough. ?? Wearing away of tooth enamel. ?? Weight loss. How is this diagnosed? Your health care provider will take a medical history and perform a physical exam. To determine if you have mild or severe GERD, your health care provider may also monitor how you respond to treatment. You may also have tests, including: ?? A test to examine your stomach and esophagus with a small camera (endoscopy). ?? A test that??measures the acidity level in your esophagus. ?? A test that??measures how much pressure is on your esophagus. ?? A barium swallow or modified barium swallow test to show the shape, size, and functioning of your esophagus. How is this treated? The goal of treatment is to help relieve your symptoms and to prevent complications. Treatment for this condition may vary depending on how severe your symptoms are. Your health care provider may recommend: ?? Changes to your diet. ?? Medicine. ?? Surgery. Follow these instructions at home: Eating and drinking ?? Follow a diet as recommended by your health care provider. This may involve avoiding foods and drinks such as: ? Coffee and tea (with or without caffeine). ? Drinks that contain??alcohol. ? Energy drinks and sports drinks. ? Carbonated drinks or sodas. ? Chocolate and cocoa. ? Peppermint and mint flavorings. ? Garlic and onions. ? Horseradish. ? Spicy and acidic foods, including peppers, chili powder, graham powder, vinegar, hot sauces, and barbecue sauce. ? King fruit juices and citrus fruits, such as oranges, suad, and limes. ? Tomato-based foods, such as red sauce, chili, salsa, and pizza with red sauce. ? Fried and fatty foods, such as donuts, ivorian fries, potato chips, and high- fat dressings. ? High-fat meats, such as hot dogs and fatty cuts of red and white meats, such as rib eye steak, sausage, ham, and boswell. ? High-fat dairy items, such as whole milk, butter, and cream cheese. ?? Eat small, frequent meals instead of large meals. ?? Avoid drinking large amounts of liquid with your meals. ?? Avoid eating meals during the 2-3 hours before bedtime. ?? Avoid lying down right after you eat. ?? Do not exercise right after you eat. Lifestyle ?? Do not use any products that contain nicotine or tobacco, such as cigarettes, e-cigarettes, and chewing tobacco. If you need help quitting, ask your health care provider. ?? Try to reduce your stress by using methods such as yoga or meditation. If you need help reducingstress, ask your health care provider. ?? If you are overweight, reduce your weight to an amount that is healthy for you. Ask your health care provider for guidance about a safe weight loss goal. General instructions ?? Pay attention to any changes in your symptoms. ?? Take fdwz-yft-mfgwenx and prescription medicines only as told by your health care provider. Do not take aspirin, ibuprofen, or other NSAIDs unless your health care provider told you to do so. ?? Wear loose-fitting clothing. Do not wear anything tight around your waist that causes pressure on your abdomen. ?? Raise (elevate) the head of your bed about 6 inches (15 cm). ?? Avoid bending over if this makes your symptoms worse. ?? Keep all follow-up visits as told by your health care provider. This is important. Contact a health care provider if: ?? You have: ? New symptoms. ? Unexplained weight loss. ? Difficulty swallowing or it hurts to swallow. ? Wheezing or a persistent cough. ? A hoarse voice. ?? Your symptoms do not improve with treatment. Get help right away if you: ?? Have pain in your arms, neck, jaw, teeth, or back. ?? Feel sweaty, dizzy, or light-headed. ?? Have chest pain or shortness of breath. ?? Vomit and your vomit looks like blood or coffee grounds. ?? Faint. ?? Have stool that is bloody or black. ?? Cannot swallow, drink, or eat. Summary ?? Gastroesophageal reflux happens when acid from the stomach flows up into the esophagus. GERD is a disease in which the reflux happens often, causes frequent or severe symptoms, or causes problems such as damage to the esophagus. ?? Treatment for this condition may vary depending on how severe your symptoms are. Your health care provider may recommend diet and lifestyle changes, medicine, or surgery. ?? Contact a health care provider if you have new or worsening symptoms. ?? Take upos-gzh-jmmcxal and prescription medicines only as told by your health care provider. Do not take aspirin, ibuprofen, or other NSAIDs unless your health care provider told you to do so. ?? Keep all follow-up visits as told by your health care provider. This is important. This information is not intended to replace advice given to you by your health care provider. Make sure you discuss any questions you have with your health care provider. Document Revised: 10/26/2018 Document Reviewed: 10/26/2018 [employer] Patient Education ?? 2020 [employer]. Gastroparesis Gastroparesis is a condition in which food takes longer than normal to empty from the stomach. Thiscondition is also known as delayed gastric emptying. It is usually a long-term (chronic) condition. There is no cure, but there are treatments and things that you can do at home to help relieve symptoms. Treating the underlying condition that causes gastroparesis can also help relieve symptoms. What are the causes? In many cases, the cause of this condition is not known. Possible causes include: ?? A hormone (endocrine) disorder, such as hypothyroidism or diabetes. ?? A nervous system disease, such as Parkinson's disease or multiple sclerosis. ?? Cancer, infection, or surgery that affects the stomach or vagus nerve. The vagus nerve runs fromyour chest, through your neck, and to the lower part of your brain. ?? A connective tissue disorder, such as scleroderma. ?? Certain medicines. What increases the risk? You are more likely to develop this condition if: ?? You have certain disorders or diseases. These may include: ? An endocrine disorder. ? An eating disorder. ? Amyloidosis. ? Scleroderma. ? Parkinson's disease. ? Multiple sclerosis. ? Cancer or infection of the stomach or the vagus nerve. ?? You have had surgery on your stomach or vagus nerve. ?? You take certain medicines. ?? You are female. What are the signs or symptoms? Symptoms of this condition include: ?? Feeling full after eating very little or a loss of appetite. ?? Nausea, vomiting, or heartburn. ?? Bloating of your abdomen. ?? Inconsistent blood sugar (glucose) levels on blood tests. ?? Unexplained weight loss. ?? Acid from the stomach coming up into the esophagus (gastroesophageal reflux). ?? Sudden tightening (spasm) of the stomach, which can be painful. Symptoms may come and go. Some people may not notice any symptoms. How is this diagnosed? This condition is diagnosed with tests, such as: ?? Tests that check how long it takes food to move through the stomach and intestines. These tests include: ? Upper gastrointestinal (GI) series. For this test, you drink a liquid that shows up well on X-rays, and then X-rays are taken of your intestines. ? Gastric emptying scintigraphy. For this test, you eat food that contains a small amount of radioactive material, and then scans are taken. ? Wireless capsule GI monitoring system. For this test, you swallow a pill (capsule) that records information about how foods and fluid move through your stomach. ?? Gastric manometry. For this test, a tube is passed down your throat and into your stomach to measure electrical and muscular activity. ?? Endoscopy. For this test, a long, thin tube with a camera and light on the end is passed down your throat and into your stomach to check for problems in your stomach lining. ?? Ultrasound. This test uses sound waves to create images of the inside of your body. This can help rule out gallbladder disease or pancreatitis as a cause of your symptoms. How is this treated? There is no cure for this condition, but treatment and home care may relieve symptoms. Treatment may include: ?? Treating the underlying cause. ?? Managing your symptoms by making changes to your diet and exercise habits. ?? Taking medicines to control nausea and vomiting and to stimulate stomach muscles. ?? Getting food through a feeding tube in the hospital. This may be done in severe cases. ?? Having surgery to insert a device called a gastric electrical stimulator into your body. This device helps improve stomach emptying and control nausea and vomiting. Follow these instructions at home: ?? Take pnsw-kkx-qtligvg and prescription medicines only as told by your health care provider. ?? Follow instructions from your health care provider about eating or drinking restrictions. Your health care provider may recommend that you: ? Eat smaller meals more often. ? Eat low-fat foods. ? Eat low-fiber forms of high-fiber foods. For example, eat cooked vegetables instead of raw vegetables. ? Have only liquid foods instead of solid foods. Liquid foods are easier to digest. ?? Drink enough fluid to keep your urine pale yellow. ?? Exercise as often as told by your health care provider. ?? Keep all follow-up visits. This is important. Contact a health care provider if you: ?? Notice that your symptoms do not improve with treatment. ?? Have new symptoms. Get help right away if you: ?? Have severe pain in your abdomen that does not improve with treatment. ?? Have nausea that is severe or does not go away. ?? Vomit every time you drink fluids. Summary ?? Gastroparesis is a long-term (chronic) condition in which food takes longer than normal to emptyfrom the stomach. ?? Symptoms include nausea, vomiting, heartburn, bloating of your abdomen, and loss of appetite. ?? Eating smaller portions, low-fat foods, and low-fiber forms of high-fiber foods may help you manage your symptoms. ?? Get help right away if you have severe pain in your abdomen. This information is not intended to replace advice given to you by your health care provider. Make sure you discuss any questions you have with your health care provider. Document Revised: 08/26/2020 Document Reviewed: 08/26/2020 [employer] Patient Education ?? 2020 [employer] Low-FODMAP Eating Plan FODMAP stands for fermentable oligosaccharides, disaccharides, monosaccharides, and polyols. These are sugars that are hard for some people to digest. A low- FODMAP eating plan may help some people who have irritable bowel syndrome (IBS) and certain other bowel (intestinal) diseases to manage their symptoms. This meal plan can be complicated to follow. Work with a diet and nutritionalist (dietitian) to make a low-FODMAP eating plan that is right for you. A dietitian can help make sure that you get enough nutrition from this diet. What are tips for following this plan? Reading food labels ?? Check labels for hidden FODMAPs such as: ? High-fructose syrup. ? Honey. ? Agave. ? Natural fruit flavors. ? Onion or garlic powder. ?? Choose low-FODMAP foods that contain 3-4 grams of fiber per serving. ?? Check food labels for serving sizes. Eat only one serving at a time to make sure FODMAP levels stay low. Shopping ?? Shop with a list of foods that are recommended on this diet and make a meal plan. Meal planning ?? Follow a low-FODMAP eating plan for up to 6 weeks, or as told by your health care provider or dietitian. ?? To follow the eating plan: 1. Eliminate high-FODMAP foods from your diet completely. Choose only low-FODMAP foods to eat. You will do this for 2-6 weeks. 2. Gradually reintroduce high-FODMAP foods into your diet one at a time. Most people should wait a few days before introducing the next new high-FODMAP food into their meal plan. Your dietitian can recommend how quickly you may reintroduce foods. 3. Keep a daily record of what and how much you eat and drink. Make note of any symptoms that you have after eating. 4. Review your daily record with a dietitian regularly to identify which foods you can eat and which foods you should avoid. General tips ?? Drink enough fluid each day to keep your urine pale yellow. ?? Avoid processed foods. These often have added sugar and may be high in FODMAPs. ?? Avoid most dairy products, whole grains, and sweeteners. ?? Work with a dietitian to make sure you get enough fiber in your diet. ?? Avoid high FODMAP foods at meals to manage symptoms. Recommended foods Fruits Bananas, oranges, tangerines, suad, limes, blueberries, raspberries, strawberries, grapes, cantaloupe, honeydew melon, kiwi, papaya, passion fruit, and pineapple. Limited amounts of dried cranberries, banana chips, and shredded coconut. Vegetables Eggplant, zucchini, cucumber, peppers, green beans, kinney sprouts, lettuce, arugula, kale, [place] chard, spinach, rodolfo greens, bok rene, summer squash, potato, and tomato. Limited amounts of corn, carrot, and sweet potato. Green parts of scallions. Grains Gluten-free grains, such as rice, oats, buckwheat, quinoa, corn, polenta, and millet. Gluten-free pasta, bread, or cereal. Rice noodles. [place] tortillas. Meats and other proteins Unseasoned beef, pork, poultry, or fish. Eggs. Boswell. Tofu (firm) and tempeh. Limited amounts of nuts and seeds, such as almonds, walnuts, brazil nuts, pecans, peanuts, nut butters, pumpkin seeds, neli seeds, and sunflower seeds. Dairy Lactose-free milk, yogurt, and kefir. Lactose-free cottage cheese and ice cream. Non-dairy milks, such as almond, coconut, hemp, and rice milk. Non-dairy yogurt. Limited amounts of goat cheese, brie,mozzarella, parmesan, swedish, and other hard cheeses. Fats and oils Butter-free spreads. Vegetable oils, such as olive, canola, and sunflower oil. Seasoning and other foods Artificial sweeteners with names that do not end in ol, such as aspartame, saccharine, and stevia. Maple syrup, white table sugar, raw sugar, brown sugar, and molasses. Mayonnaise, soy sauce, and tamari. Fresh basil, coriander, parsley, jennifer, and thyme. Beverages Water and mineral water. Sugar-sweetened soft drinks. Small amounts of orange juice or cranberry juice. Black and green tea. Most dry araceli. Coffee. The items listed above may not be a complete list of foods and beverages you can eat. Contact a dietitian for more information. Foods to avoid Fruits Fresh, dried, and juiced forms of apple, pear, watermelon, peach, plum, cherries, apricots, blackberries, boysenberries, figs, nectarines, and roseanne. Avocado. Vegetables Chicory root, artichoke, asparagus, cabbage, snow peas, [place] sprouts, broccoli, sugar snap peas, mushrooms, celery, and cauliflower. Onions, garlic, leeks, and the white part of scallions. Grains Wheat, including kamut, durum, and semolina. Barley and bulgur. Couscous. Wheat- based cereals. Wheat noodles, bread, crackers, and pastries. Meats and other proteins Fried or fatty meat. Sausage. Cashews and pistachios. Soybeans, baked beans, black beans, chickpeas, kidney beans, elian beans, navy beans, lentils, black- eyed peas, and split peas. Dairy Milk, yogurt, ice cream, and soft cheese. Cream and sour cream. Milk-based sauces. Custard. Buttermilk. Soy milk. Seasoning and other foods Any sugar-free gum or candy. Foods that contain artificial sweeteners such as sorbitol, mannitol, isomalt, or xylitol. Foods that contain honey, high-fructose corn syrup, or agave. Bouillon, vegetable stock, beef stock, and chicken stock. Garlic and onion powder. Condiments made with onion, such ashummus, chutney, pickles, relish, salad dressing, and salsa. Tomato paste. Beverages Chicory-based drinks. Coffee substitutes. Chamomile tea. Fennel tea. Sweet or fortified araceli such as port or alyssa. Diet soft drinks made with isomalt, mannitol, maltitol, sorbitol, or xylitol. Apple, pear, and roseanne juice. Juices with high-fructose corn syrup. The items listed above may not be a complete list of foods and beverages you should avoid. Contact a dietitian for more information. Summary ?? FODMAP stands for fermentable oligosaccharides, disaccharides, monosaccharides, and polyols. These are sugars that are hard for some people to digest. ?? A low-FODMAP eating plan is a short-term diet that helps to ease symptoms of certain bowel diseases. ?? The eating plan usually lasts up to 6 weeks. After that, high-FODMAP foods are reintroduced gradually and one at a time. This can help you find out which foods may be causing symptoms. ?? A low-FODMAP eating plan can be complicated. It is best to work with a dietitian who has experience with this type of plan. This information is not intended to replace advice given to you by your health care provider. Make sure you discuss any questions you have with your health care provider. Document Revised: 09/05/2020 Document Reviewed: 09/05/2020 Elsevier Patient Education ?? 2020 [employer] AMBULATORY ANALYST documented in this encounter Plan of Treatment Scheduled Orders Name Type Priority Associated Diagnoses Orde r Schedule GASTRO PROCEDURE Procedures Routine Nausea and vomiting, intractability of vomiting not specified, unspecified vomiting type Esophagitis Gastroparesis Expected: 11/05/2021 (Approximate), Expires: 05/08/2022 documented as of this encounter Results * NM GASTRIC EMPTYING STUDY (05/16/2021 11:42 AM EPIC AMBULATORY ANALYST) Anatomical Region Laterality Modality GI, Abdomen N/A Nuclear Medicine 05/16/2021 2:28 PM EPIC AMBULATORY ANALYST Impressions 05/16/2021 2:31 PM EPIC AMBULATORY ANALYST IMPRESSION: Normal ??gastric emptying. ?? Narrative 05/16/2021 2:31 PM EPIC AMBULATORY ANALYST EXAM DESCRIPTION: ?? NM GASTRIC EMPTYING STUDY [...] Electronically signed by ??Mehrdad Francis M.D. CH: SUKUMAR D: ??05/16/2021 2:28 PM T: ??05/16/2021 2:28 PM Report ID: [id number] Reading Location: ??[id number] Procedure Note Mehrdad Francis Jr., MD - [...] Electronically signed by Mehrdad Francis M.D. CH: Report ID: [id number] Reading Location: [id number] IMPRESSION: Normal gastric emptying. Samaria Baez PAC IMG NM ORDERABLES Final R esult documented in this encounter Visit Diagnoses Diagnosis Nausea and vomiting, intractability of vomiting not specified, unspecified vomiting type- Primary Esophagitis Esophagitis, unspecified Gastroparesis Gastroesophageal reflux disease with esophagitis without hemorrhage Nausea and vomiting, intractability of vomiting not specified, unspecified vomiting type Gastroparesis documented in this encounter Care Teams Turf Grower Relationship Specialty Start Date End Date Carrie Joseph PA [address] [address] PCP - General Adult Medicine 11/11/18 Naomi Sanches MD [address] [phone] Consulting Physician Endocrinology 05/21/20 documented as of this encounter
--- OUTSIDE RECORDS SUMMARY | 2024-05-10 18:54 | XMS_ITS | Encounter Summary ---
Author Organization [facility] Address [address] [facility] [place] [address] Phone Care Team Providers Care Printing Machine Operator Name Role Phone Carrie Joseph Primary Care Provider [phone] Naomi Sanches MD Unavailable Reason for Visit * Reason Onset Date Comments Medication Refill 06/17/2021 Encounter Details Date Type Department Care Team (Late st Contact Info) Description 06/17/2021 Refill [facility] - Endocr[facility]ology - [place] [address]2 [place] [address] Naomi Snaches MD #[address] [phone] Medication Refill Social History Tobacco [...] Telephone Encounter - Naomi Sanches MD - 06/17/2021 11:19 AM CST Rx of Humalog U200 and Semglee sent ILE KNITTER * Telephone Encounter - Charisma Carrington, RN - 06/17/2021 8:31 AM TEXTILE KNITTER She is also needing a refill of Basaglar but it is not covered by insurance. Brittonglee preferred . Requested Prescriptions Pending Prescriptions Disp Refills ??? Insulin Lispro (HumaLOG KwikPen) 200 UNIT/ML Solution Pen-injector 1 ILE KNITTER documented in this encounter Plan of Treatment Not on file documented as of this encounter Visit Diagnoses Not on filedocumented in this encounter Care Teams Printing Machine Operator Relationship Specialty Start Date End Date Carrie Joseph PA [address] [address] PCP - General Adult Medicine 11/11/18 Naomi Sanches MD #[address] [phone] Consulting Physician Endocrinology 05/21/20 documented as of this encounter
--- OUTSIDE RECORDS SUMMARY | 2024-05-10 18:54 | XMS_ITS | Encounter Summary ---
Author Organization [facility] Address [address] [facility] [place] [address] Phone Care Team Providers Care Credit Assistant Name Role Phone Carrie Joseph Primary Care Provider [phone] Reason for Visit * Reason Onset Date Comments Medication Refill 12/14/2019 Encounter Details Date Type Department Care Team (Late st Contact Info) Description 12/14/2019 Refill [facility] - Endocr[facility] #2 [place] [phone] Naomi Sanches MD [address] [phone] Medication Refill Social History Tobacco Use Types [...] Telephone Encounter - Charisma Carrington RN - 12/14/2019 3:24 PM CDT Refill request received. Order pended. Requested Prescriptions Pending Prescriptions Disp Refills ??? Basaglar KwikPen 100 UNIT/ML Solution Pen-injector 0 Next appt: 12/18/2019 documented in this encounter Plan of Treatment Not on file documented as of this encounter Visit Diagnoses Not on filedocumented in this encounter Care Teams Credit Assistant Relationship Specialty Start Date End Date Carrie Joseph PA [address] [place] [id number] PCP - General Adult Medicine 11/11/18 documented as of this encounter
--- OUTSIDE RECORDS SUMMARY | 2024-05-10 18:54 | XMS_ITS | Encounter Summary ---
Author Organization [employer] Care Team Providers Care Seo Strategist Name Role Phone Carrie Joseph Primary Care Provider Naomi Sanches MD Unavailable Encounter Details Date Type Department Care Team (Latest Contact Info) Description 05/16/2021 Travel Social History Tobacco Use Types Packs/Day [...] COVID-19? No / Unsure 05/16/2021 9:12 AM NEWS CAMERA PERSON documented as of this encounter Plan of Treatment Not on file documented as of this encounter Visit Diagnoses Not on filedocumented in this encounter Care Teams Seo Strategist Relationship Specialty Start Date End Date Carrie Joseph PA [address] [facility] [address] [place] [address] PCP - General Adult Medicine 11/11/18 Naomi Sanches MD #[address] [phone] Consulting Physician Endocrinology 05/21/20 documented as of this encounter
--- OUTSIDE RECORDS SUMMARY | 2024-05-10 18:54 | XMS_ITS | Encounter Summary ---
Author Organization [facility] Address [address] [facility] [place] [address] Phone Care Team Providers Care Vice President Lending Name Role Phone Carrie Joseph Primary Care Provider [phone] Reason for Visit * Reason Onset Date Comments Medication Refill 05/20/2020 Encounter Details Date Type Department Care Team (Late st Contact Info) Description 05/20/2020 Refill [facility] - Endocrinology [facility] #2 [place] [phone] Naomi Sanches MD #[address] [phone] Medication Refill Social History Tobacco [...] Telephone Encounter - Charisma Carrington, RN - 05/20/2020 2:35 PM CORK INSULATOR HELPER Refill request received. Order pended. Requested Prescriptions Pending Prescriptions Disp Refills ??? ReliOn Pen [place] 32G X 4 MM Misc 400 Pen Needle 3 Si times a day Next appt: 05/24/2020 INSULATOR HELPER documented in this encounter Plan of Treatment Not on file documented as of this encounter Visit Diagnoses Not on filedocumented in this encounter Care Teams Vice President Lending Relationship Specialty Start Date End Date Carrie Joseph PA [address] [address] PCP - General Adult Medicine 11/11/18 documented as of this encounter
--- OUTSIDE RECORDS SUMMARY | 2024-05-10 18:54 | XMS_ITS | Encounter Summary ---
Author Organization [facility] Address [address] [facility] [place] [address] Phone Care Team Providers Care Green Meat Packer Name Role Phone Carrie Joseph Primary Care Provider [phone] Naomi Lara MD Unavailable Reason for Visit * Reason Onset Date Comments Medication Management 12/31/2020 Encounter Details Date Type Department Care Team (Late st Contact Info) Description 12/31/2020 Telephone [facility] - Endocr[facility]ology - [place] #2 [place] [address] Naomi Lara MD #[address] [phone] Medication Management Social History Tobacco Use Types Packs/Day Years [...] Telephone Encounter - Charisma Carrington RN - 01/01/2021 1:16 PM CDT Patient informed. Verbalizes understanding. * Telephone Encounter - Charisma Carrington RN - 12/31/2020 4:07 PM CDT Mychart message sent. * Addendum Note - Namoi Lara MD - 12/31/2020 3:59 PM CDTAddended by: NAOMI LARA on: 12/31/2020 03:59 PM Modules accepted: Orders * Telephone Encounter - Naomi Lara MD - 12/31/2020 3:57 PM CDT PLAN: 1. Take NPH 10 units in the morning and 8 units in the evening in place of Lantus insulin - Rx sent * Telephone Encounter - Charisma Carrington RN - 12/31/2020 1:43 PM CDT Patient left message stating she is needing to use generic NPH until she can get her Lantus. Requesting dosing for the NPH. * Telephone Encounter - Charisma Carrington RN - 12/31/2020 8:29 AM CDT Patient left a voicemail regarding N and R insulin. Call returned with no answer. Left voicemail toreturn call. documented in this encounter Plan of Treatment Not on file documented as of this encounter Visit Diagnoses Not on filedocumented in this encounter Care Teams Green Meat Packer Relationship Specialty Start Date End Date Carrie Joseph PA [address] [place] [id number] PCP - General Adult Medicine 11/11/18 Naomi Lara MD [address] [phone] Consulting Physician Endocrinology 05/21/20 documented as of this encounter
--- OUTSIDE RECORDS SUMMARY | 2024-05-10 18:54 | XMS_ITS | Encounter Summary ---
Author Organization [facility] Address [address] [facility] [place] [address] Phone Care Team Providers Care Flotation Tank Operator Name Role Phone Carrie Joseph Primary Care Provider [phone] Naomi Sanches MD Unavailable Reason for Visit * Reason Onset Date Comments Medication Refill 08/05/2020 Encounter Details Date Type Department Care Team (Late st Contact Info) Description 08/05/2020 Refill [facility] - Endocrinology - [place] #2 [place] [address] Naomi Sanches MD #[address] [phone] Medication Refill Social History Tobacco [...] Telephone Encounter - Naomi Sanches MD - 08/06/2020 8:30 AM CDT Rx sent * Telephone Encounter - Charisma Carrington RN - 08/05/2020 3:01 PM CDT Refill request received. Order pended. Requested Prescriptions Pending Prescriptions Disp Refills ??? Basaglar KwikPen 100 UNIT/ML Solution Pen-injector 15 mL 1 Si Units by Subcutaneous route nightly. Next appt: 08/27/2020 documented in this encounter Plan of Treatment Not on file documented as of this encounter Visit Diagnoses Not on filedocumented in this encounter Care Teams Flotation Tank Operator Relationship Specialty Start Date End Date Carrie Joseph PA [address] [address] PCP - General Adult Medicine 11/11/18 Naomi Sanches MD #[address] [phone] Consulting Physician Endocrinology 05/21/20 documented as of this encounter
--- OUTSIDE RECORDS SUMMARY | 2024-05-10 18:54 | XMS_ITS | Encounter Summary ---
Author Organization [employer] Care Team Providers Care Radar Operator Name Role Phone Carrie Joseph Primary Care Provider [phone] Encounter Details Date Type Department Care Team (Latest Contact Info) Description 11/16/2019 Travel Social History Tobacco Use Types Packs/Day [...] on filedocumented in this encounter Care Teams Radar Operator Relationship Specialty Start Date End Date Carrie Joseph PA [address] [address] PCP - General Adult Medicine 11/11/18 documented as of this encounter
--- OUTSIDE RECORDS SUMMARY | 2024-05-10 18:54 | XMS_ITS | Encounter Summary ---
Author Organization [employer] Care Team Providers Care Director Communications Name Role Phone Carrie Joseph Primary Care Provider [phone] Naomi Sanches MD Unavailable Encounter Details Date Type Department Care Team (Latest Contact Info) Description 08/27/2020 Travel Social History Tobacco Use Types Packs/Day [...] on filedocumented in this encounter Care Teams Director Communications Relationship Specialty Start Date End Date Carrie Joseph PA [address] [facility] [address] [place], [place] [phone] PCP - General Adult Medicine 11/11/18 Naomi Sanches MD [address] [phone] Consulting Physician Endocrinology 05/21/20 documented as of this encounter
--- OUTSIDE RECORDS SUMMARY | 2024-05-10 18:55 | XMS_ITS | Encounter Summary ---
Author Organization [facility] Address [address] [place] [address] Phone Care Team Providers Care Dye Tub Operator Name Role Phone Carrie Joseph Primary Care Provider [phone] Reason for Visit * Reason Onset Date Comments Medication Management 05/31/2019 Insurance coverage Encounter Details Date Type Department Care Team (Late st Contact Info) Description 05/31/2019 Telephone [facility] - Endocrinology - [place] #2 [place] [address] Naomi Sanches MD [address] [phone] Medication Management (Insurance coverage) Social History Tobacco Use Types Packs/Day Years [...] Telephone Encounter - Naomi Sanches MD - 05/31/2019 1:36 PM CST Rx of Humalog sent DING INSULATION INSTALLER * Telephone Encounter - Charisma Carrington RN - 05/31/2019 9:17 AM BUILDING INSULATION INSTALLER Admelog not covered by insurance. Humalog preferred. Next appt: 08/14/2019 DING INSULATION INSTALLER documented in this encounter Plan of Treatment Not on file documented as of this encounter Visit Diagnoses Not on filedocumented in this encounter Care Teams Dye Tub Operator Relationship Specialty Start Date End Date Carrie Joseph PA [address] [address] PCP - General Adult Medicine 11/11/18 documented as of this encounter
--- OUTSIDE RECORDS SUMMARY | 2024-05-10 18:55 | XMS_ITS | Encounter Summary ---
Author Organization [facility] [employer] Care Team Providers Care Chief Medical Officer Name Role Phone Carrie Joseph Primary Care Provider [phone] Encounter Details Date Type Department Care Team (Latest Contact Info) Description 05/08/2019 Travel Social History Tobacco Use Types Packs/Day [...] on filedocumented in this encounter Care Teams Chief Medical Officer Relationship Specialty Start Date End Date Carrie Joseph PA [address] [address] PCP - General Adult Medicine 11/11/18 documented as of this encounter
--- OUTSIDE RECORDS SUMMARY | 2024-05-10 18:55 | XMS_ITS | Encounter Summary ---
Author Organization [facility] Address [address] [place] [address] Phone Care Team Providers Care Director Software Quality Assurance Name Role Phone Carrie Joseph Primary Care Provider [phone] Encounter Details Date Type Department Care Team (Late st Contact Info) Description 08/10/2019 Refill [facility] - Endocrinology - [place] #2 [place] [phone] Naomi Sanches MD [address] [phone] Social History Tobacco Use Types Packs/Day Years [...] encounter Miscellaneous Notes * Telephone Encounter - Eliane Christensen CMA - 08/10/2019 1:52 PM CDT Patient needs a refill on test strips. documented in this encounter Plan of Treatment Not on file documented as of this encounter Visit Diagnoses Not on filedocumented in this encounter Care Teams Director Software Quality Assurance Relationship Specialty Start Date End Date Carrie Joseph PA [address] [place] [address] [place] [address] PCP - General Adult Medicine 11/11/18 documented as of this encounter
--- OUTSIDE RECORDS SUMMARY | 2024-05-10 18:55 | XMS_ITS | Encounter Summary ---
Author Organization [facility] Address [address] [place] [address] Phone Care Team Providers Care Purse Seiner Name Role Phone Carrie Joseph Primary Care Provider [phone] Reason for Visit * Reason Comments Diabetes Mellitus Type 1 DM Encounter Details Date Type Department Care Team (Late st Contact Info) Description 08/14/2019 3:00 PM CDT Telemedicine [facility] - Endocrinology - [place] [address] [place] [phone] Naomi Sanches MD [address] [phone] Type 1 diabetes mellitus without complication (HCC) (Primary Dx); Hypoglycemia; Headache around the eyes Social History Tobacco Use Types Packs/Day Years [...] on file documented as of this encounter Patient Instructions * Patient Instructions* Naomi Sanches MD - 08/14/2019 3:00 PM CDT Please take Basaglar 10 units at bedtime Please take Admelog 1 unit for 8 gm of CHO before each meal Please use correctional factor insulin before each meal as directed Please monitor blood sugar before each meal and at bedtime Please send blood sugar log for review in 2 weeks Contact Endocrinology Clinic for low blood sugar events Follow up visit in 3 months ?? RULE OF 15: ??If you [...] toes clean and dry. ?? CORRECTION FACTOR: 1:40 ?? BLOOD GLUCOSE (SUGAR) CORRECTION FACTOR: 1:40 HUMALOG/NOVOLOG UNDER 70 TREAT LOW, USE RULE OF 15 71 - 140 NO CORRECTIONAL INSULIN NEEDED 141 - 180 +1 UNIT 181 - 220 +2 UNITS 221 - 260 +3 UNITS 261 - 300 +4 UNITS 301 - 320 +5 UNITS 321 - 360 +6 UNITS 361 - 400 +7 UNITS ABOVE 400 +8 UNITS ? documented in this encounter Progress Notes * Sivan Christensen, [facility] - 08/14/2019 3:00 PM CDT Pre-Visit Planning Documentation Main reason for visit? Follow up Diabetes Any other concerns or questions that should be discussed at the visit? No Recent ED Visits and Hospitalizations 07/21/17 Renzo Nuñez MD, [facility] Urinary tract infection, site not specified ..., ED (DISCHARGE) 02/03/17 Odin Pickering MD; Akhil Sargent..., [facility] DKA, type 1 (HCC), ED to Hosp-Admission (Discharged) (ADMIT) 01/03/17 Odin Pickering MD; Yanique Campbell, [facility] D[facility], type 1 (HCC), ED to Hosp-Admission (Discharged) (ADMIT) Health Maintenance Due Topic Date Due ??? Dilated Eye Exam 1996 ??? Pneumococcal Immunization (0-64 years) (1 of 1 - PPSV23) 2002 ??? Meningococcal B Immunization (1 of 2 - Risk Bexsero 2-dose series) 2006 ??? Human Papillomavirus (HPV) Immunization (1 - Female 2-dose series) 2007 ??? Pap Smear 2017 Diabetic Patient: Lab Results Component Value Date HGBA1C 7.7 (A) 05/08/2019 No results found for: MACRRAND No results found for: URMICROALBUM No results found for: CREATININEU Lab Results Component Value Date CREATININE 0.40 (L) 11/08/2017 Lab Results Component Value Date SGPTALT 9 07/21/2017 No results found for: LDL Last Eye Exam: No results found for this or any previous visit.; Eye exam needed: no Last Foot Exam: Foot exam needed: no Orders due are pended? no Pre-Visit Planning Status: Complete- with patient contact Communication Method Used to Complete PVP: Phone Pre-Visit Planning documented on 08/10/19 1:51 PM by SIVAN CHRISTENSEN CMA * Naomi Sanches MD - 08/14/2019 3:00 PM CDT CC: Hyperglycemia Karina Fuchs is a 24-year-old female who has type 1 diabetes mellitus. The patient's diabetes is complicated by gastroparesis. Other pertinent health history includes diabetic ketoacidosis. The patient was initially diagnosed with diabetes approximately 10 years ago. Currently, the patient takes Basaglar 12 units at bedtime and Humalog 1 unit for every 8 gm of CHO before each meal for management of hyperglycemia. The patient reports occasional, mild hypoglycemic events with intact symptoms of hypoglycemia awareness. Most episodes occur overnight. The patient denied severe low blood sugar events requiring third libertarian intervention. Ms. Fuchs reported that her blood sugars have been running mostly between 100 and 150 mg/dL. Hemoglobin A1c obtained in May 2019 was 7.7%. Diabetes related complication surveillance 1. No history of diabetic retinopathy - the last dilated eye exam was in Jan 2018 2. No symptoms of peripheral sensory neuropathy 3. Urine microalbumin/creatinine ratio - not available 4. Not available 5. No history of macrovascular disease [...] Endocrine: Negative for polydipsia, polyphagia and polyuria. Neurological: Positive for retro-orbital headache. Past Medical History Positives Diagnosis Date ??? Diabetes mellitus (HCC) ??? Gastroparesis Past Surgical History: Procedure Laterality Date ??? SECTION ??? TONSILLECTOMY Objective: Physical Exam Unable to obtain DIAGNOSTIC DATA: Lab Results Component Value Date HGBA1C 7.7 [...] and Plan Karina Fuchs is a young wooman with type 1 diabetes mellitus whose overall glycemic control has improved over the last 3 months based on review of her capillary blood glucose report. Low blood sugar event overnight suggests that current basal insulin coverage seems excessive. Treatment consideration and hypoglycemic precaution were discussed with her at some length. She will reduce Basaglar to 10 units at bedtime and continue Humalog 1 unit for every 8 gm of CHO before each meal for management of hyperglycemia. Ms. Fuchs will check blood sugar consistently before each meal and at bedtime. She will then forward these results for review, and changes to her insulin regimen made as appropriate until blood sugars are consistently in the range of 80 to 140 mg/dl at all times they tested. PLAN: 1. Decrease Basaglar to 10 units at bedtime 2. Take Humalog 1 unit for every 8 gm of CHO before each meal 3. Monitor blood sugar QAC/QHS 4. Send CBG log for review 5. Further plan based on #4 6. Contact Endocrinology Clinic for low blood sugar events 7. RTC in 3 months Hypoglycemia PLAN: 1. Consistent CHO diet 2. Rule of 15 Headache PLAN: 1. PRN NSAID 2. Check blood glucose to rule of low blood sugar event 3. If sx persists, contact PCP for further evaluation The patient was assessed via telephone for a duration of 14 minutes, regarding hyperglycemia and hypoglycemic precaution. The patient verbally consented for this service to be performed and billed. Naomi Sanches MD 08/14/2019 documented in this encounter Plan of Treatment Not on file documented as of this encounter Visit Diagnoses Diagnosis Type 1 diabetes mellitus without complication (HCC)- Primary Type I (juvenile type) diabetes mellitus without mention of complication, not stated as uncontrolled Hypoglycemia Hypoglycemia, unspecified Headache around the eyes Headache documented in this encounter Care Teams Purse Seiner Relationship Specialty Start Date End Date Carrie Joseph PA [address] [address] PCP - General Adult Medicine 11/11/18 documented as of this encounter
--- OUTSIDE RECORDS SUMMARY | 2024-05-10 18:55 | XMS_ITS | Encounter Summary ---
Author Organization [facility] Address [address] [place] [address] Phone Care Team Providers Care Teacher Education Instructor Name Role Phone Carrie Joseph Primary Care Provider [phone] Reason for Visit * Reason Comments Blood sugar problem Follow up Encounter Details Date Type Department Care Team (Late st Contact Info) Description 05/08/2019 1:45 PM ANIMAL CONTROL OFFICER Office Visit [facility] - End[facility] - [place] [address] [place] [address] Naomi Lara MD #[address] [phone] Type 1 diabetes mellitus without complication (HCC) (Primary Dx); Other fatigue; History of UTI Discharge Disposition: Discharged to home or Selfcare [...] Sign Reading Time Taken Comments Blood Pressure 100/52 05/08/2019 1:54 PM ANIMAL CONTROL OFFICER Pulse 93 05/08/2019 1:54 PM ANIMAL CONTROL OFFICER Temperature 36.6 ??C (97.8 ??F) 05/08/2019 1:54 PM CS T Respiratory Rate 16 05/08/2019 1:54 PM ANIMAL CONTROL OFFICER Oxygen Saturation 97% 05/08/2019 1:54 PM ANIMAL CONTROL OFFICER Inhaled Oxygen Concentration - - Weight 59.9 kg (132 lb) 05/08/2019 1:54 PM ANIMAL CONTROL OFFICER Height 154.9 cm (5' 1 ) 05/08/2019 1:54 PM ANIMAL CONTROL OFFICER Body Mass Index 24.94 05/08/2019 1:54 PM ANIMAL CONTROL OFFICER documented in this encounter Patient Instructions * Patient Instructions* Naomi Lara MD - 05/08/2019 1:45 PM ANIMAL CONTROL OFFICER Please increase Basaglar to 12 units at bedtime Please take Admelog 1 [...] clean and dry. ?? CORRECTION FACTOR: 1:40 BLOOD GLUCOSE (SUGAR) CORRECTION FACTOR: 1:40 HUMALOG/NOVOLOG UNDER 70 TREAT LOW, USE RULE OF 15 71 - 140 NO CORRECTIONAL INSULIN NEEDED 141 - 180 +1 UNIT 181 - 220 +2 UNITS 221 - 260 +3 UNITS 261 - 300 +4 UNITS 301 - 320 +5 UNITS 321 - 360 +6 UNITS 361 - 400 +7 UNITS ABOVE 400 +8 UNITS AL CONTROL OFFICER documented in this encounter Progress Notes * Eliane Christensen CMA - 05/08/2019 1:45 PM CST Patient was seen in office today and finger stick was obtained on right middle finger for A1C, Patient tolerated well. AL CONTROL OFFICER * Naomi Lara MD - 05/08/2019 1:45 PM CST CC: Hyperglycemia Karina Fuchs is a 23-year-old female who comes to the Endocrinology office to discuss management of type 1 diabetes mellitus. The patient's diabetes is complicated by gastroparesis. Other pertinenthealth history includes DKA. The patient was initially diagnosed with diabetes approximately 10 years ago. Currently, Ms. Fuchs takes Basaglar 10 units at bedtime, Humalog 1 unit for every 8 gm of CHO before each meal for management of hyperglycemia. The patient denied low blood sugar event or severe hypoglycemia requiring third republican intervention. Review of her capillary blood glucose log for the past two weeks showed morning values in the range of 120 to 200 mg/dL, lunch values ranging from 100 to 190 mg/dL, dinner values in the range of 130 to 180 mg/dL, and bedtime values ranging from 120 to 200mg/dL. Ms. Fuchs had high blood glucose reading when she had UTI or URI. [facility]%, improved from the previous measurement of 10.9% obtained in January 20. ?? Diabetes related complication surveillance 1. No history of diabetic retinopathy - the last dilated eye exam was in January 2018 2. No symptoms of peripheral sensory neuropathy 3. Urine microalbumin/creatinine ratio - not available 4. BP 100/52 mmHg 5. LDL - not available 6. [...] Laterality Date ??? SECTION ??? TONSILLECTOMY Vitals: 05/08/19 1354 BP: 100/52 BP Location: Left Arm BP Position: Sitting BP Cuff Size: Regular Pulse: 93 Resp: 16 Temp: 97.8 ??F (36.6 ??C) TempSrc: Tympanic SpO2: 97% Weight: 132 lb (59.9 kg) Height: 5' 1 (1.549 m) Objective: Physical Exam Constitutional: appears well-developed and well-nourished. No acute distress. Head: Normocephalic and atraumatic. Eyes: EOM are normal. Not icteric Neck: Normal range of motion, Neck supple, No noticeable or palpable swelling, redness or rash Lymph Node: No cervical, clavicular, or posterior auricular lymphadenopathy Cardiovascular: Normal rate and regular rhythm, No JVD Pulmonary/Chest: Effort normal and breath sounds normal, No use of accessory muscle, No crackles orwheezing Abdominal: Soft, and not tender, Normal bowel sound, No lipodystrophy at injection sites Musculoskeletal: Normal range of motion, No edema. No cyanosis or clubbing Neurological: Alert and oriented to person, place, and time, CN 2-12 grossly intact Skin: Skin is warm and dry, No rash noted. Psychiatric: Normal mood and affect. Judgment normal. Intact memory for recent and remote events DIAGNOSTIC DATA: Hb A1c checked by [facility] testing today was 7.7%. Lab Results Component Value Date HGBA1C 10.9 (H) 01/03/2017 Lab Results Component [...] the last 3 months based on today???s [id number]-Ksto hemoglobin A1c measurement. In particular, hemoglobin A1c has decreased by over 3%. Treatment consideration and lifestyle modification were discussed with her at some length. The patient agreed to raise Basaglar to 12 unitsat bedtime and change ISF to 1:40 if CBG is above 140 mg/dL. Ms. Fuchs will return for office reevaluation in 3 months. PLAN: 1. Increase Basaglar to 12 units at bedtime 2. Take Humalog 1 unit for every 8 gm of CHO before each meal 3. Correctional factor insulin dosed at 1:40 if CBG is > 140 mg/dl 4. Monitor blood sugar QAC/QHS 5. Bring CBG log for review 6. Contact Endocrinology Clinic for low blood sugar events 7. Check LDL, spot urine microalbumin/creatinine ratio, and TSH 8. Further plan based on #7 9. RTC in 3 months Recurrent DKA w/ infection Higher insulin requirement during infection and precaution for DKA were discussed with her at some length. PLAN: 1. Increase basal insulin requirement by 20-30% with UTI or URI 2. Frequent monitoring of blood glucose 3. Give correctional factor insulin every 4-6 hr even though you can't eat or drink NAOMI LARA MD 05/08/2019 AL CONTROL OFFICER documented in this encounter Plan of Treatment Scheduled Orders Name Type Priority Associated Diagnoses Orde r Schedule LOW DENSITY LIPID CHOLESTEROL MEASURED Lab Routine Type 1 diabetes mellitus without complication (HCC) Other fatigue Expected: 11/06/2019, Expires: 11/05/2020 UR MICROALBUMIN/CREATININE RATIO RANDOM Lab Routine Type 1 diabetes mellitus without complication (HCC) Other fatigue Expected: 11/06/2019, Expires: 11/05/2020 THYROID STIMULATING HORMONE (TSH) Lab Routine Type 1 diabetes mellitus without complication (HCC) Other fatigue Expected: 01/09/2020, Expires: 01/08/2021 documented as of this encounter Procedures Procedure Name Priority Date/Time Associated Diagnosis Comments POCT GLYCOSYLATED HEMOGLOBIN Routine 05/08/2019 2:00 PM ANIMAL CONTROL OFFICER Type 1 diabetes mellitus without complication (HCC) documented in this encounter Results * (ABNORMAL) POCT GLYCOSYLATED HEMOGLOBIN (05/08/2019 2:00 PM ANIMAL CONTROL OFFICER) HGB-A1C 7.7(A) 4 - 6 05/08/2019 2:00 PM ANIMAL CONTROL OFFICER us Naomi Lara MD POINT OF CARE TESTING (MANUAL) F inal Result documented in this encounter Visit Diagnoses Diagnosis Type 1 diabetes mellitus without complication (HCC)- Primary Type I (juvenile type) diabetes mellitus without mention of complication, not stated as uncontrolled Other fatigue History of UTI Personal history of urinary (tract) infection documented in this encounter Care Teams Teacher Education Instructor Relationship Specialty Start Date End Date Carrie Joseph PA [address] [place] [phone] PCP - General Adult Medicine 11/11/18 documented as of this encounter
--- OUTSIDE RECORDS SUMMARY | 2024-05-10 18:55 | XMS_ITS | Encounter Summary ---
Author Organization [facility] Address [address] [place] [address] Phone Care Team Providers Care Supplier Specialist Name Role Phone Carrie Joseph Primary Care Provider [phone] Reason for Visit * Reason Onset Date Comments Medication Refill 05/31/2019 Encounter Details Date Type Department Care Team (Late st Contact Info) Description 05/31/2019 Refill [facility] - End[facility]in[facility] [address] [place] [phone] Naomi Sanches MD [address] [phone] Medication Refill Social History Tobacco [...] Encounter - Charisma Carrington RN - 05/31/2019 9:42 AM TAXONOMIST Refill request received. Order pended. Requested Prescriptions Pending Prescriptions Disp Refills ??? RELION PEN NEEDLES 32G X 4 MM Misc 100 Pen Needle 3 Sig: Once a day Next appt: 08/14/2019 NOMIST documented in this encounter Plan of Treatment Not on file documented as of this encounter Visit Diagnoses Not on filedocumented in this encounter Care Teams Supplier Specialist Relationship Specialty Start Date End Date Carrie Joseph PA [address] [phone] PCP - General Adult Medicine 11/11/18 documented as of this encounter
--- OUTSIDE RECORDS SUMMARY | 2024-05-10 18:58 | XMS_ITS | Encounter Summary ---
Author Organization [facility] Address [address] [place] [address] Care Team Providers Care Family Preservation Caseworker Name Role Phone Unavailable Primary Care Provider Unavailabl e Encounter Details Date Type Department Care Team (Late st Contact Info) Description 12/23/2023 External Device Data [facility] ABSTRACTION Provider, Abstract NO ADDRESS ON FILE Social History Tobacco Use Types Packs/Day Years Used Date Smoking Tobacco: Never Passive Smoke Exposure: Never Smokeless Tobacco: Never Alcohol Use Standard Drinks/Week Comments Not Currently 0 (1 standard drink = 0.6 oz pur e alcohol) Feeling Safe Answer Date Recorded Are you in a relationship wi th someone who hurts you emotionally and/or physically? Unable to obtain 01/29/2023 Sex and Gender Information Value Date Recorded Sex Assigned at Not on file Gender Identity Not on file Sexual Orientation Not on file documented as of this encounter Plan of Treatment Not on file documented as of this encounter Visit Diagnoses Not on filedocumented in this encounter
--- OUTSIDE RECORDS SUMMARY | 2024-05-10 18:58 | XMS_ITS | Encounter Summary ---
Author Organization [facility] Address [address] [place] [address] Care Team Providers Care Corrugated Box Machine Operator Name Role Phone Unavailable Primary Care Provider Unavailabl e Encounter Details Date Type Department Care Team (Late st Contact Info) Description 03/14/2024 External Device Data [facility] ABSTRACTION Provider, Abstract [...] emotionally and/or physically? Unable to obtain 01/29/2023 Estimated Date of Delivery Comme nts Yes 10/16/2024 Sex and Gender Information Value Date Recorded Sex Assigned at Not on file Gender Identity Not on file Sexual Orientation Not on file documented as of this encounter Plan of Treatment Not on file documented as of this encounter Visit Diagnoses Not on filedocumented in this encounter
--- OUTSIDE RECORDS SUMMARY | 2024-05-10 18:58 | XMS_ITS | Encounter Summary ---
Author Organization [facility] Address [address] [place] [address] Care Team Providers Care Blueprint Engineer Name Role Phone Unavailable Primary Care Provider Unavailabl e Encounter Details Date Type Department Care Team ([facility] st Contact Info) Description 03/29/2023 Chart Note [facility] Care [address] Floor [place], [place] [id number] Ml Ramírez LCSW Social History Tobacco Use Types Packs/Day Years [...] as of this encounter Progress Notes * Ml Ramírez LCSW - 03/29/2023 2:30 PM CST [facility] received a referral for Patient is PP with [facility]. She asks for resources for mental health.OBSW provided pt with a listing of therapists - Pt contacted the Health Dept and has found a therapist. Pt has not identified any additional needs. At this time OBSW will be closing this referral. Thank you for trusting this patient with Social Work. If the need arises, another referral can be made to OBS[facility]. NADIA De La Cruz, [facility] [place] [facility] [phone] [email or web address] PACKER documented in this encounter Plan of Treatment Not on file documented as of this encounter Visit Diagnoses Not on filedocumented in this encounter
--- OUTSIDE RECORDS SUMMARY | 2024-05-10 18:58 | XMS_ITS | Encounter Summary ---
Author Organization [facility] Address [address] [place] [address] Care Team Providers Care Patient Manager Name Role Phone Unavailable Primary Care Provider Unavailabl e Encounter Details Date Type Department Care Team (Late st Contact Info) Description 02/15/2024 External Device Data STL ABSTRACTION Provider, Abstract [...]
--- OUTSIDE RECORDS SUMMARY | 2024-05-10 18:58 | XMS_ITS | Encounter Summary ---
Author Organization [facility] Address [address] [place] [address] Care Team Providers Care Pattern Grader Cutter Name Role Phone Unavailable Primary Care Provider Unavailabl e Reason for Visit * Reason Onset Date Comments Diabetes 03/07/2024 Encounter Details Date Type Department Care Team (Late st Contact Info) Description 03/07/2024 Telephone [facility] Maternal Medicine [address] [address] [place] [phone] Kelli Neal MD [address] [place] [address] Diabetes Social History Tobacco Use Types Packs/Day Years [...] encounter Miscellaneous Notes * Telephone Encounter - Angelica He RN - 03/07/2024 11:28 AM CST Insulin pump supply orders faxed to [facility] documented in this encounter Plan of Treatment Not on file documented as of this encounter Visit Diagnoses Not on filedocumented in this encounter
--- OUTSIDE RECORDS SUMMARY | 2024-05-10 18:58 | XMS_ITS | Encounter Summary ---
Author Organization [facility] Address [address] [place] [address] Care Team Providers Care County Supervisor Name Role Phone Unavailable Primary Care Provider Unavailabl e Encounter Details Date Type Department Care Team (Late st Contact Info) Description 06/21/2023 External Device Data STL ABSTRACTION Provider, Abstract [...]
--- OUTSIDE RECORDS SUMMARY | 2024-05-10 18:58 | XMS_ITS | Encounter Summary ---
Author Organization [facility] Address [address] [place] [address] Care Team Providers Care Grant Manager Name Role Phone Unavailable Primary Care Provider Unavailabl e Encounter Details Date Type Department Care Team (Late st Contact Info) Description 03/13/2024 Abstract [facility] Maternal and Medicine - [facility] [address] [place] [phone] Jasmina Souza Social History Tobacco Use Types Packs/Day Years [...]
--- OUTSIDE RECORDS SUMMARY | 2024-05-10 18:58 | XMS_ITS | Encounter Summary ---
Author Organization [facility] Address [address] [place] [address] Care Team Providers Care Plastic Mould Maker Name Role Phone Unavailable Primary Care [...]
--- OUTSIDE RECORDS SUMMARY | 2024-05-10 18:58 | XMS_ITS | Encounter Summary ---
Author Organization [facility] Address [address] [place] [address] Care Team Providers Care Program Clinician Name Role Phone Unavailable Primary Care Provider Unavailabl e Encounter Details Date Type Department Care Team (Late st Contact Info) Description 09/07/2023 External Device Data STL ABSTRACTION Provider, Abstract [...]
--- OUTSIDE RECORDS SUMMARY | 2024-05-10 18:58 | XMS_ITS | Encounter Summary ---
Author Organization [facility] Address [address] [place] [address] Care Team Providers Care Architectural Technician Name Role Phone Unavailable Primary Care Provider Unavailabl e Encounter Details Date Type Department Care Team (Late st Contact Info) Description 01/18/2024 External Device Data STL ABSTRACTION Provider, Abstract [...]
--- OUTSIDE RECORDS SUMMARY | 2024-05-10 18:58 | XMS_ITS | Encounter Summary ---
Author Organization [facility] Address [address] [place] [address] Care Team Providers Care Fish Bait Processing Supervisor Name Role Phone Unavailable Primary Care Provider Unavailabl e Encounter Details Date Type Department Care Team (Late st Contact Info) Description 06/04/2023 External Device Data STL ABSTRACTION Provider, Abstract [...]
--- OUTSIDE RECORDS SUMMARY | 2024-05-10 18:58 | XMS_ITS | Encounter Summary ---
Author Organization [facility] Address [address] [place] [address] Care Team Providers Care Truckman Name Role Phone Unavailable Primary Care Provider Unavailabl e Reason for Visit * Reason Onset Date Comments Medical Supplies 02/23/2023 Encounter Details Date Type Department Care Team (Late st Contact Info) Description 02/23/2023 Telephone [facility] MATERNAL MEDICINE TRANQUILLITY [address] [place] [phone] Kelli Neal MD [address] [facility] [address] [place] [phone] Medical Supplies Social History Tobacco Use Types Packs/Day Years [...] Miscellaneous Notes * Telephone Encounter - Angelica Mcpherson RN - 02/23/2023 2:28 PM CDT Pump supply Rx received via fax from [employer]. Signed and faxed back. documented in this encounter Plan of Treatment Not on file documented as of this encounter Visit Diagnoses Not on filedocumented in this encounter
--- OUTSIDE RECORDS SUMMARY | 2024-05-10 18:58 | XMS_ITS | Encounter Summary ---
Author Organization [facility] Address [address] [place] [address] Care Team Providers Care Blue Leather Setter Name Role Phone Unavailable Primary Care Provider Unavailabl e Encounter Details Date Type Department Care Team (Late st Contact Info) Description 01/11/2024 External Device Data STL ABSTRACTION Provider, Abstract [...]
--- OUTSIDE RECORDS SUMMARY | 2024-05-10 18:58 | XMS_ITS | Encounter Summary ---
Author Organization [facility] Address [address] [place] [address] Care Team Providers Care Concrete Batching Plant Operator Name Role Phone Unavailable Primary Care Provider Unavailabl e Reason for Visit * Reason Onset Date Comments Ambulatory Social Work 02/19/2023 OB Social Work - 1st attempt Encounter Details Date Type Department Care Team (Late st Contact Info) Description 02/19/2023 Patient Outreach [facility] Outpatient Care [address] Fourth Floor [place], [place] [id number] Ml Ramírez LCSW Ambulatory Social Work (OB Social Work - 1st attempt) Social History Tobacco Use Types Packs/Day Years [...] Progress Notes * Ml Ramírez LCSW - 02/19/2023 12:21 PM CDT Clinic SW referral received and chart reviewed. SW received referral for needing therapy referrals. Reviewed chart and attempted to reach pt. Left message and sent MMM Will make another attempt. NADIA De La Cruz, TENN[facility] OBGYN Parking Cashier Women's and Children's Ambulatory Social Work [phone] [email or web address] Ment[facility] HospitalArista Power.[facility] documented in this encounter Plan of Treatment Not on file documented as of this encounter Visit Diagnoses Not on filedocumented in this encounter
--- OUTSIDE RECORDS SUMMARY | 2024-05-10 18:58 | XMS_ITS | Encounter Summary ---
Author Organization [facility] Address [address] [place] [address] Care Team Providers Care Chemical Processor Name Role Phone Unavailable Primary Care Provider Unavailabl e Encounter Details Date Type Department Care Team (Late st Contact Info) Description 03/13/2024 Abstract [facility] Maternal and Medicine - [facility] [address] [facility] [address] [place] [address] Stacey Tripathi, RN Social History Tobacco Use Types Packs/Day [...] as of this encounter Progress Notes * Stacey Tripathi, MARY - 03/13/2024 4:27 PM CST AARTI added. ANIZER documented in this encounter Plan of Treatment Not on file documented as of this encounter Visit Diagnoses Not on filedocumented in this encounter
--- OUTSIDE RECORDS SUMMARY | 2024-05-10 18:58 | XMS_ITS | Encounter Summary ---
Author Organization [facility] Address [address] [place] [address] Care Team Providers Care Build And Release Manager Name Role Phone Unavailable Primary Care [...]
--- OUTSIDE RECORDS SUMMARY | 2024-05-10 18:58 | XMS_ITS | Encounter Summary ---
Author Organization [facility] Address [address] [place] [address] Care Team Providers Care Wedding Makeup Artist Name Role Phone Unavailable Primary Care Provider Unavailabl e Encounter Details Date Type Department Care Team (Late st Contact Info) Description 06/02/2023 External Device Data STL ABSTRACTION Provider, Abstract [...]
--- OUTSIDE RECORDS SUMMARY | 2024-05-10 18:58 | XMS_ITS | Encounter Summary ---
Author Organization [facility] Address [address] [place] [address] Care Team Providers Care Plate Grinder Name Role Phone Unavailable Primary Care Provider Unavailabl e Encounter Details Date Type Department Care Team (Late st Contact Info) Description 10/26/2023 External Device Data STL ABSTRACTION Provider, Abstract [...]
--- OUTSIDE RECORDS SUMMARY | 2024-05-10 18:58 | XMS_ITS | Encounter Summary ---
Author Organization [facility] Address [address] [place] [address] Care Team Providers Care Striker Off Name Role Phone Unavailable Primary Care Provider Unavailabl e Encounter Details Date Type Department Care Team (Late st Contact Info) Description 03/19/2023 Orders Only [facility] Maternal and Medicine - [facility] [address] [place] [address] Zbigniew Marino MD [address] [facility] [address] [place] [address] Type 1 diabetes mellitus with hyperglycemia Social History Tobacco Use Types Packs/Day Years [...] encounter Miscellaneous Notes * Addendum Note - Roxanna Rodrigues RN - 03/19/2023 11:01 AM CSTAddended by: ROXANNA RODRIGUES on: 03/19/2023 11:01 AM Modules accepted: Orders IT AUTHORIZER documented in this encounter Plan of Treatment Not on file documented as of this encounter Visit Diagnoses Diagnosis Type 1 diabetes mellitus with hyperglycemia Type I (juvenile type) diabetes mellitus without mention of complication, not stated as uncontrolled documented in this encounter
--- OUTSIDE RECORDS SUMMARY | 2024-05-10 18:58 | XMS_ITS | Encounter Summary ---
Author Organization [facility] Address [address] [place] [address] Care Team Providers Care Etl Architect Name Role Phone Unavailable Primary Care Provider Unavailabl e Encounter Details Date Type Department Care Team (Late st Contact Info) Description 04/16/2023 External Device Data STL ABSTRACTION Provider, Abstract [...]
--- OUTSIDE RECORDS SUMMARY | 2024-05-10 18:58 | XMS_ITS | Encounter Summary ---
Author Organization [facility] Address [address] [place] [address] Care Team Providers Care Union Representative Name Role Phone Unavailable Primary Care Provider Unavailabl e Encounter Details Date Type Department Care Team (Late st Contact Info) Description 09/21/2023 External Device Data STL ABSTRACTION Provider, Abstract [...]
--- OUTSIDE RECORDS SUMMARY | 2024-05-10 18:58 | XMS_ITS | Encounter Summary ---
Author Organization [facility] Address [address] [place] [address] Care Team Providers Care Dye House Supervisor Name Role Phone Unavailable Primary Care Provider Unavailabl e Encounter Details Date Type Department Care Team (Late st Contact Info) Description 11/16/2023 External Device Data STL ABSTRACTION Provider, Abstract [...]
--- OUTSIDE RECORDS SUMMARY | 2024-05-10 18:58 | XMS_ITS | Clinical Summary ---
Author Organization [facility] Address [address] [place] [address] Phone Care Team Providers Care Collections Technician Name Role Phone Unavailable Primary Care Provider Unavailabl e Allergies No known active allergies Medications Medication Sig Dispensed Refills Start Date End Date Status vit,calc76/iron/fol ic (PNV 29-1 ORAL) Take by mouth. Ac tive metoclopramide HCl (REGLAN) 5 mg tabletIndications:S upervision of high risk in first trimester,Gastropar esis due to DM Take 1 Tablet (5 mg) by mouth 4 times daily before meals and at bedtime. 120 Tablet 4 08/31/2022 Active scopolamine (Transderm-Scop) 1 mg/72 hr patch Apply 1 Patch to skin as directed see administration instructions for 10 doses. 10 Patch 3 12/09/2022 Active Acetone, Urine, Test (Ketostix) StripIndications:[place] pervision of high risk in second trimester,Type 1 diabetes mellitus without complication Use as directed. Notify MD for moderate to large ketones. 100 Strip 1 12/09/2022 Active promethazine (PHENERGAN) 25 mg Suppository 10/09/2022 Active blood sugar diagnostic Strip 1 Strip. Active insulin lispro (HumaLOG) 100 unit/mL vial Up to 100U/day via insulin pump 30 mL 5 01/20/2023 Active Insulin Syringe-Needle U-100 0.3 mL 31 gauge x 09/15 SyringeIndications: Pre-existing type 1 diabetes mellitus in in third trimester To be used to inject insulin 5-8 times daily in the case of insulin pump failure. Notify [facility] DM team LUPE if pump fails 100 Each 1 01/27/2023 Active insulin lispro (HumaLOG KwikPen Insulin) 100 unit/mL pen syringeIndications: Type 1 diabetes mellitus with hyperglycemia Inject 1 unit of insulin for every 10g of carbs before meals. Inject an additional unit of insulin for every 40mg/dL greater than 110 mg/dL before your meals. Max daily units: 100 15 mL 3 02/18/2023 Active Lantus Solostar U-100 Insulin 100 unit/mL (3 mL) solution for injectionIndication s:Type 1 diabetes mellitus with hyperglycemia Inject 8 units under the skin in the morning and 8 units at night. 15 mL 4 03/19/2023 Active Active Problems Problem Noted Date Diagnosed Date Mild pre-eclampsia in third trimester 02/05/2023 Starvation ketoacidosis 01/31/2023 MFMtx/OBH: DKA (resolved), T1DM 01/30/2023 Constipation 11/21/2021 Intractable vomiting with nausea 11/20/2021 Intractable vomiting 03/13/2020 Type 1 diabetes mellitus affecting , an tepartum 03/06/2020 Overview (12/23/2022): - History DKA (multiple admission during and [...] with HROB and Endocrinology. Pt to call Hot Pond Operator and see if they are comfortable treating [...] [] A1c likely to be rechecked via insole stiffener but if not, will check qtrimester Diabetic gastroparesis 02/14/2019 Depression 02/11/2019 Type 1 diabetes mellitus without complication Cannabinoid hyperemesis syndrome 01/02/2018 Overview (12/23/2022): Last Assessment & Plan: Nausea vomiting. Patient presents with ketonuria, however [...] Zofran as needed for nausea and vomiting. Type 1 diabetes mellitus with hyperglycemia 06/2017 Overview (12/23/2022): Last Assessment & Plan: Sugars are in the 200s and slowly improving with insulin. Patient is on Lantus 10 units nightly however as she is actively vomiting, will reduce dose to 5 units nightly. Will monitor on a mid dose sliding scale. Patient follows with Dr. Sanches. T1DM Last Assessment & Plan: The patient was counseled [...] following with endocrinology F/u in 3 months Diabetic ketoacidosis associ ated with type 1 diabetes mellitus 01/03/2017 Estimated Date of Delivery Comme nts Yes 10/16/2024 Resolved Problems Problem Noted Date Diagnosed Date Resolved Date DKA (diabetic ketoacidosis) 01/29/2023 01/29/2023 Acute renal failure 12/23/2022 01/07/20 before 22 weeks with retention of fetus 07/17/2022 01/06/2023 Urinary tract infection in female 07/17/2022 01/06/2023 Thrombocytopenia 10/28/2021 01/06/2023 Leukocytosis 04/29/2021 01/06/2023 Overview (12/23/2022): Last Assessment & Plan: This may be reactive, no source of infection. -pending urine cultures, pending blood culture -sterile pyuria on urinalysis Altered mental status 03/04/20212022 Tachycardia 03/24/2019 01/06/2023 Hypoglycemia 11/11/2018 01/06/2023 Abnormal EKG 10/12/2018 01/06/2023 Overview (12/23/2022): 10/2018 Dehydration 01/02/2018 01/06/2023 Overview (12/23/2022): Last Assessment & Plan: Continue IV fluids with D5 half-normal saline Monitor strict I&Os Hyperkalemia 01/03/2017 01/06/2023 Hypernatremia 01/03/2017 01/06/2023 Encounters Date Type Department Care Team Description 05/09/2024 External Device Data STL ABSTRACTION Provider, Abstract 05/05/2024 Telephone [facility] Maternal and Medicine - [facility] [place] [facility] [address], [place] [address] Kathryn Coppola Appointment Notification 05/04/2024 Telephone [facility] Maternal and Medicine - [facility] [place] [facility] [address] [address] Juhi Mathews MD Appointment Notification 04/17/2024 Telephone [facility] Maternal and Medicine - [facility] [place] [facility] [address] [address] Diabetes 03/14/2024 External Device Data STL ABSTRACTION Provider, Abstract 03/13/2024 Abstract [facility] Maternal and Medicine - [facility] [place] [facility] [address] [place] [address] Stacey Tripathi RN 03/13/2024 Abstract [facility] Maternal and Medicine - [facility] [place] [facility] [address] [place] [phone] Jasmina Souza 03/07/2024 Telephone [facility] Maternal Medicine [address] [facility] [address] [place] [phone] Kelli Neal MD Diabetes 02/15/2024 External Device Data STL ABSTRACTION Provider, Abstract from Last 3 Months Immunizations Name Administration Dates Next Due (ADACEL/BOOSTRIX)(10 YR UP) TDAP VACCINE, 0.5ML, IM 02/04/2023,02/03/2023(Deferred: - consent not signed in notes at this time. Pharamcy to adjust times for 0900 per pt request.) INFLUENZA VACCINE QUADRIVALE NT 6 MOS UP PF IM 02/04/2023(Deferred: - pt wanting vaccine tommorow) Family History Medical History Relation Name Comments Hepatitis Maternal Grandfather Relation Name Status Comments Maternal Grandfather Social History Tobacco Use Types Packs/Day Years Used Date Smoking Tobacco: Never Passive Smoke Exposure: Never Smokeless Tobacco: Never Tobacco Cessation:Counseling Given: [...] Sign Reading Time Taken Comments Blood Pressure 112/78 02/18/2023 11:16 AM CDT Pulse 65 02/18/2023 11:16 AM CDT Temperature 36.6 ??C (97.8 ??F) 02/13/2023 6:41 AM CD T Respiratory Rate 16 02/13/2023 6:41 AM CDT Oxygen Saturation 97% 02/18/2023 11:16 AM CDT Inhaled Oxygen Concentration - - Weight 68 kg (150 lb) 02/18/2023 11:16 AM CDT Height 157.5 cm (5' 2 ) 01/29/2023 4:40 PM CDT Body Mass Index 27.44 01/29/2023 4:40 PM CDT Plan of Treatment Health Maintenance Due Date Last Done Comments HEPATITIS B VACCINES (3 of 3 - 3-dose series) 1996 1996, 1996 PNEUMOCOCCAL VACCINE 0-64 YEARS (1 of 2 - PCV) 2002 DIABETES ANNUAL FOOT EXAM 2014 DIABETES ANNUAL RETINAL EXAM 2014 DIABETES MICROALBUMIN ANNUAL SCREEN 2014 LDL CHOLESTEROL ANNUAL 2014 CERVICAL CANCER SCREENING 2017 DIABETES HBA1C Q 6 MONTHS 07/31/20232022, 05/22/2022, 03/21/2020, Additional history exists INFLUENZA VACCINE (#1) 2023 9, 01/01/2017, 05/13/2016 DTAP/TDAP/TD VACCINES (7 - Td or Tdap) 02/04/2033 02/04/2023, 09/09/2016, 12/11/2009, Additional history exists HPV VACCINES Aged Out No longer eligi ble based on patient's age to complete this topic RSV VACCINE (60+ or ) (No Doses Required) Completed Procedures Procedure Name Priority Date/Time Associated Diagnosis Comments HEMOGLOBIN A1C Routine 01/30/2023 3:57 AM CDT from Last 3 Months or Most Recently Relevant to Health Maintenance Results * (ABNORMAL) HEMOGLOBIN A1C (01/30/2023 3:57 AM CDT) HEMOGLOBIN A1C 5.7(H) <5.7 % 01/30/2023 8:43 AM CDT [facility] EST. AVG GLUCOSE, A1C 117 mg/dL 01/30/2023 8:43 AM CDT [facility] Blood Venipuncture / Unknown 01/30/2023 3:57 AM CDT 01/30/2023 4:01 AM CDT Narrative [facility] - 01/30/2023 8:43 AM CDT HGB A1C INTERPRETATION NORMAL: ? <5.7% PRE-DIABETES: 5.7 - 6.4% DIABETES: ? 6.5% OR GREATER Manuel Goldstein MD CHEMISTRY ORDERABLES [facility] PETR# [id number] [address] [place] [id number] from Last 3 Months or Most Recently Relevant to Health Maintenance Advance Directives For more information, please contact: [phone] * Full Code (Latest Code Status on File) Date Activated Date Inactivated Comments 02/07/2023 8:45 AM 02/13/2023 3:42 PM * Full Code Date Activated Date Inactivated Comments 02/07/2023 8:43 AM 02/07/2023 8:45 AM * Full Code Date Activated Date Inactivated Comments 01/29/2023 4:27 PM 02/07/2023 8:43 AM
--- OUTSIDE RECORDS SUMMARY | 2024-05-10 18:58 | XMS_ITS | Encounter Summary ---
Author Organization [facility] Address [address] [place] [address] Care Team Providers Care Magistrate Name Role Phone Unavailable Primary Care Provider Unavailabl e Encounter Details Date Type Department Care Team (Late st Contact Info) Description 12/07/2023 External Device Data STL ABSTRACTION Provider, Abstract [...]
--- OUTSIDE RECORDS SUMMARY | 2024-05-10 18:58 | XMS_ITS | Encounter Summary ---
Author Organization [facility] Address [address] [place] [address] Care Team Providers Care Plant Attendant Or Assistant Operator Name Role Phone Unavailable Primary Care Provider Unavailabl e Encounter Details Date Type Department Care Team (Late st Contact Info) Description 09/14/2023 External Device Data STL ABSTRACTION Provider, Abstract [...]
--- OUTSIDE RECORDS SUMMARY | 2024-05-10 18:58 | XMS_ITS | Encounter Summary ---
Author Organization [facility] Address [address] [place] [address] Care Team Providers Care Furniture Lumber Production Worker Name Role Phone Unavailable Primary Care Provider Unavailabl e Reason for Visit * Reason Onset Date Comments Diabetes 04/17/2024 Encounter Details Date Type Department Care Team (Late st Contact Info) Description 04/17/2024 Telephone [facility] Maternal and Medicine - [facility] [address] [place] [address] Nya Gan, RD [address] [place] [address] Diabetes Social History Tobacco Use [...] encounter Miscellaneous Notes * Telephone Encounter - Nya Gan RD - 04/17/2024 11:23 AM DATA CONVERSION DEVELOPER Pt scheduled for diabetes education today at 1100 with this DIANDRA, MIN and no- showed. Called and LMOR to pt to call back to reschedule. Nya Gan RDN, MIN Advanced Practice Registered Dietitian, Certified Diabetes Care & Edu Specialist [facility] Maternal Medicine [phone] CONVERSION DEVELOPER documented in this encounter Plan of Treatment Not on file documented as of this encounter Visit Diagnoses Not on filedocumented in this encounter
--- OUTSIDE RECORDS SUMMARY | 2024-05-10 18:59 | XMS_ITS | Encounter Summary ---
Author Organization [facility] Address [address] [place] [address] Care Team Providers Care Senior Clinical Data Manager Name Role Phone Unavailable Primary Care Provider Unavailabl e Reason for Referral * Eval and Treat (Routine) - Closed Specialty Diagnoses / Procedures Referred By Rachael t Referred To Contact Diagnoses History of depression Procedures FL OFFICE/OUTPATIENT ESTABLISHED MOD MDM 30-39 MIN FL OFFICE/OUTPATIENT NEW MODERATE MDM 45-59 MINUTES Merari Jara NP [address] [facility] [place] [address] Referral ID Status Reason Start Date Expiration Date Visits Re quested Visits Authorized [id number] Closed 02/19/2023 02/20/2024 1 1 Reason for Visit * Reason Comments Blood Pressure Check Encounter Details Date Type Department Care Team (Late st Contact Info) Description 02/18/2023 11:00 AM CDT Office Visit [facility] MATERNAL MEDICINE [place] [address] [place] [id number] Merari Jara NP [address] [facility] [place] [address] History of depression (Primary Dx); Type 1 diabetes mellitus without complication; Pre-eclampsia, mild, delivered; S/P section Social History Tobacco Use Types Packs/Day Years [...] Pulse 65 02/18/2023 11:16 AM CDT Temperature - - Respiratory Rate - - Oxygen Saturation 97% 02/18/2023 11:16 AM CDT Inhaled Oxygen Concentration - - Weight 68 kg (150 lb) 02/18/2023 11:16 AM CDT Height - - Body Mass Index 27.44 01/29/2023 4:40 PM CDT documented in this encounter Progress Notes * Merari Jara NP - 02/18/2023 11:00 AM CDT [facility] Maternal Medicine Follow-Up Consultation Karina Fuchs [id number] 27 y.o. Chief Complaint: complicated by: Preeclampsia w/o SF, delivered T1DM H/o Depression/ anxiety Primary OB: [facility] [place] (had one visit prior to delivery), previously patient of Dr. Velazquez's HPI: Karina Fuchs is a 27 y.o. s/p repeat on 02/07 at 35w5d. She is 11 days today. Is seen today in follow up due to the above concerns. Admitted on 01/29 for suspected DKA and elevated blood pressures. She was delivered on 02/07 at [id number] FHR decelerations. She was discharged on POD#6 (stayed due to poor glucose control). Her most recent Dexcom data shows: Average sensor glucose for the past 7 days is 133 mg/dL. Trends of overnight lows which causes rebound elevated fastings. (See CDCES RN note for full graph details) Currently on Lantus 12/12, Humalog 1:10 ICR at all meals/snacks + pre-meal correction 1:35>100 Karina is waiting to hear back from [employer] about her insulin pump. Reports home BP values of less than 120/80s. Denies any headaches, vision changes, N/V or RUQ pain. : She reports decreasing lochia without significant clots. She denies headache, blurry vision, RUQ/epigastric pain, NV She denies chest pain, SOB, calf tenderness. She denies bowel or bladder issues. Pain is controlled with no medications Reports ok mood without SI/HI. EPDS 15 today. Declines starting medication. Would like resources for therapy/ counseling. Reports h/o PP Depression following prior delivery 6 years ago. Reports she has much better support this time with her partner and his family. States she is sleeping overall well. Review of Systems ROS:As Per HPI. All other systems negative as they relate to the chief complaint. Physical Exam BP 112/78 Pulse 65 Wt 68 kg (150 lb) SpO2 97% BMI 27.44 kg/m?? General: appearance: alert, in no distress Skin: warm and dry, intact. Lungs: normal respiratory effort, negative for coughing or wheezing, lungs clear to auscultation bilaterally Heart: normal rate and normal peripheral perfusion Abdomen: Non-distended, soft, NT Incision: WNL, edges well approximated without drainage or erythema Extremities:No LE, No calf pain noted Psychiatric: Appropriate mood and affect Labs Reviewed Lab Results Component Value Date/Time WBC 9.1 02/05/2023 01:10 AM HGB 9.4 (L) 02/05/2023 01:10 AM HCT 30.3 (L) 02/05/2023 01:10 AM PLT 266 02/05/2023 01:10 AM MCV 83.9 02/05/2023 01:10 AM Lab Results Component Value Date/Time NA 138 02/05/2023 01:09 AM K 4.3 02/05/2023 01:09 AM CL 101 02/05/2023 01:09 AM CO2 30 (H) 02/05/2023 01:09 AM CA 8.8 02/05/2023 01:09 AM BUN 4 (L) 02/05/2023 01:09 AM CREAT 0.54 02/05/2023 01:09 AM GLUCOSE 68 (L) 02/05/2023 01:09 AM TOTALPROTEIN 5.5 (L) 02/05/2023 01:09 AM ALBUMIN 3.2 (L) 02/05/2023 01:09 AM BILITOTAL 0.2 (L) 02/05/2023 01:09 AM ALKPHOS 104 02/05/2023 01:09 AM AST 23 02/05/2023 01:09 AM ALT 12 02/05/2023 01:09 AM ANIONGAP 7 (L) 02/05/2023 01:09 AM Medications Current Outpatient Medications Medication Sig Dispense Refill insulin glargine (Lantus Solostar U-100 Insulin) 100 unit/mL pen syringe Inject 8 units under the skin in the morning and 8 units at night. 15 mL 4 insulin lispro (HumaLOG KwikPen Insulin) 100 unit/mL pen syringe Inject 1 unit of insulin for [id number] of carbs before meals. Inject an additional unit of insulin for every 40mg/dL greater than 110 mg/dL before your meals. Max daily units: 100 15 mL 3 [DISCONTINUED] insulin glargine (Lantus Solostar U-100 Insulin) 100 unit/mL pen syringe Inject 8 units under the skin in the morning and 12 units at night. 15 mL 4 [DISCONTINUED] insulin lispro (HumaLOG KwikPen Insulin) 100 unit/mL pen syringe Inject 1 unit of insulin for every 10g of carbs before meals. Inject an additional unit of insulin for every 35mg/dL greater than 100 mg/dL before your meals. Max daily units: 100 15 mL 3 Insulin Syringe-Needle U-100 0.3 mL 31 gauge x 5/16 Syringe To be used to inject insulin 5-8 timesdaily in the case of insulin pump failure. Notify [facility] DM team [place] if pump fails 100 Each 1 insulin lispro (HumaLOG) 100 unit/mL vial Up to 100U/day via insulin pump 30 mL 5 promethazine (PHENERGAN) 25 mg Suppository blood sugar diagnostic Strip 1 Strip. scopolamine (Transderm-Scop) 1 mg/72 hr patch Apply 1 Patch to skin as directed see administration instructions for 10 doses. 10 Patch 3 Acetone, Urine, Test (Ketostix) Strip Use as directed. Notify MD for moderate to large ketones. 100Strip 1 vit,calc76/iron/folic (PNV 29-1 ORAL) Take by mouth. metoclopramide HCl (REGLAN) 5 mg tablet Take 1 Tablet (5 mg) by mouth 4 times daily before meals and at bedtime. 120 Tablet 4 No current facility-administered medications for this visit. TOBACCO COUNSELING She is not a tobacco/nicotine user. Assessment and Plan 27 y.o. at 11 days post with complicated by preeclampsia without SF and T1DM 1. Assessment/plan: - s/p repeat on 02/07 at 35w5d - MOF: Breast feeding and Bottle feeding - Baby girl: doing well (baby did not require NICU time and was discharged with patient) 2. Preeclampsia without SF, delivered Assessment: - Reports home Bps 120s/80s - Denies any symptoms today - Labs unremarkable as above Plan: - Goal BP <140/90 - Send logs weekly to [facility] for review - Reviewed severe features and reasons to present back to the hosptial Patient counseling: - Discussed preeclampsia at length. - Discussed that she is at higher risk of developing preeclampsia in a future so we recommend starting low dose ASA daily at the beginning of the 2nd trimester for risk reduction and monitoring closely throughout for recurrence. - Discussed she is at higher risk of a lifetime hypertensive disorder and recommended yearly follow-up appointments with a primary care provider. 3. T1DM Assessment: -Currently on injections. Lantus 12/12, Novolog ICR 1:10. 1:35>100 -Dexcom reviewed: Trends of overnight lows which causes rebound elevated fastings. Ave 7 day glucose 133 Plan: -Decrease Lantus to 8 units in the p.m. Change correction to 1:40> 110, continue Lantus 8 Units in the a.m., Novolog ICR 1:10 -Encouraged weekly review with MFM via [facility] for insulin titration (MFM is available to assist with her diabetes management for ~ 6 weeks PP) -Encouraged to call [employer] today to inquire about her insulin pump supplies -Encouraged to call Endocrinology physician today to make follow up appt (Dr. Sanches) -Reviewed PCC consult with MFM prior to future , reviewed to optimize glucose control prior to conception. 4. H/o Depression Assessment: -EPDS 15 today with 'never' to Question 10 (no SI/HI) Plan: -Declines starting medication today -Will send resources for counseling -Reviewed Mental Health Crisis hotline #306 Disposition - Continue care with your practice (encouraged to make follow up appointment) - No follow up made with MFM; however, our office will continue to review BP and glucose values forup to 6 weeks PP. Thank you for the opportunity to participate in the care of this patient. Merari Jara NP [facility] Maternal Medicine Complexity of medical decision making: Moderate due to with the additional complications mentioned above. On the day of the visit, I spent 35 minutes providing care to this patient including Preparing to see the patient, Obtaining and/or reviewing separately obtained history, Performing a medically appropriate examination and/or evaluation, Counseling and educating the patient/family/caregiver, Ordering medications, tests or procedures, Documenting clinical information in the medical record, Referring and communication with other health resident care manager rn (not separately reported), and Independently interpreting results and communicating results to the patient/family/caregiver (not separately reported). documented in this encounter Miscellaneous Notes * Addendum Note - Kell Mcpherson RN - 02/19/2023 9:18 AM CDTAddended by: KELL MCPHERSON on: 02/19/2023 09:18 AM Modules accepted: Orders documented in this encounter Plan of Treatment Scheduled Referrals Name Type Priority Associated Diagnoses Orde r Schedule AMB REFERRAL TO SOCIAL WORK Outpatient Referral Routine History of depression Ordered: 02/19/2023 documented as of this encounter Visit Diagnoses Diagnosis History of depression- Primary Personal history of other mental disorder Type 1 diabetes mellitus without complication Type I (juvenile type) diabetes mellitus without mention of complication, not stated as uncontrolled Pre-eclampsia, mild, delivered Mild or unspecified pre-eclampsia, with delivery S/P section Other postprocedural status documented in this encounter
--- OUTSIDE RECORDS SUMMARY | 2024-05-10 18:59 | XMS_ITS | Encounter Summary ---
Author Organization [facility] Address [address] [place] [address] Care Team Providers Care Waterproofer Name Role Phone Unavailable Primary Care Provider Unavailabl e Reason for Visit * Reason Comments Diabetes Encounter Details Date Type Department Care Team (Late st Contact Info) Description 02/18/2023 Chart Note [facility] MATERNAL MEDICINE [place] [address] [place] [address] Merari Jara NP [address] [address] Diabetes Social History Tobacco Use Types [...] as of this encounter Progress Notes * Roxanna Rodrigues RN - 02/18/2023 11:41 AM CDT Images from the original note were not included. [facility] Maternal Medicine Diabetes Log Review Gestational age: Post (delivered on 02/07/23) Type of DM: DM1 + Dexcom Current regimen: Lantus 12/12 Humalog 1:10 ICR at all meals/snacks + pre-meal correction 1:35>100 Comments: CGM data reviewed. Average sensor glucose for the past 7 days is 133 mg/dL. Trends of overnight lows which causes rebound elevated fastings. Recommendations: -Lantus 12/08 - decrease HS dose -Huamlog 1:10 ICR at meals/snacks + pre-meal correction 1:40 > 110 - adjust ISF and target -Contact [employer] to get pump supplies and restart insulin pump therapy mingo -Send [employer] message to MFM Wednesday to review CGM data and make further adjustments Roxanna Rodrigues RN Certified Diabetes Care & Edu Specialist [facility] Maternal Medicine MF Nurse Practitioner Attestation: Log reviewed. Agree with above recommendations. Reviewed at appt today Merari Jara NP [facility] Maternal Medicine documented in this encounter Plan of Treatment Not on file documented as of this encounter Visit Diagnoses Diagnosis Type 1 diabetes mellitus with hyperglycemia- Primary Type I (juvenile type) diabetes mellitus without mention of complication, not stated as uncontrolled Pre-existing type 1 diabetes mellitus in in third trimester Diabetes mellitus, antepartum documented in this encounter
--- OUTSIDE RECORDS SUMMARY | 2024-05-10 19:00 | XMS_ITS | Encounter Summary ---
Author Organization [facility] Address [address] [place] [address] Care Team Providers Care Whipped Topping Finisher Name Role Phone Unavailable Primary Care Provider Unavailabl e Reason for Visit * Auth/Cert (Routine) Specialty Diagnoses / Procedures Referred By Rachael t Referred To Contact Critical Care Medicine Diagnoses MFTI 2, Pos DKA abnormal VS Zbigniew Marino MD [address] [facility] [address] [place] [address] [facility] Med Surg Icu [address] [place] [address] Referral ID Status Reason Start Date Expiration Date Visits Re quested Visits Authorized [id number] 1 1 Encounter Details Date Type Department Care Team (Latest Contact Info) Description 01/29/2023 4:04 PM CDT - 02/13/2023 1:42 PM CDT Hospital Encounter [facility] Mother/Baby 6C [address] [place] [address] Frank Morley MD [address] [facility] [address] [place] [address] Zbigniew Marino MD [address] [facility] [address] [place] [address] Yazan Hernandez MD [address] [facility] [address] [place] [address] Vidhi Espinosa MD [id number] [place] [address] [place] [address] [place] [address] , supervision, high-risk Discharge Disposition: Home or Self Care Social [...] Sign Reading Time Taken Comments Blood Pressure 105/63 02/13/2023 6:41 AM CDT Pulse 70 02/13/2023 6:41 AM CDT Temperature 36.6 ??C (97.8 ??F) 02/13/2023 6:41 AM CD T Respiratory Rate 16 02/13/2023 6:41 AM CDT Oxygen Saturation 100% 02/12/2023 8:10 PM CDT Inhaled Oxygen Concentration - - Weight 74.4 kg (164 lb) 01/29/2023 4:40 PM CDT Height 157.5 cm (5' 2 ) 01/29/2023 4:40 PM CDT Body Mass Index 30 01/29/2023 4:40 PM CDT documented in this encounter Discharge Summaries * Kelli Neal MD - 02/13/2023 10:25 AM CDT [facility] Discharge Summary Patient: Chey Selby Menjivar / 27 y.o. / female : 1995 CSN: [id number] 02/13/2023 Admitting Physician: Zbigniew Marino MD Consults: OB hospitalist Admit date: 01/29/2023 Discharge date: 02/13/2023 Admitting Diagnoses: Principal Problem: MFMtx/OBH: DKA (resolved), T1DM Active Problems: Diabetic gastroparesis Intractable vomiting with nausea Type 1 diabetes mellitus affecting , antepartum Overview: - History DKA (multiple admission during and [...] with HROB and Endocrinology. Pt to call [facility] and see if they are comfortable treating [...] [] A1c likely to be rechecked via academic services coordinator but if not, will check qtrimester Starvation ketoacidosis Mild pre-eclampsia in third trimester Discharge Diagnoses: Principal Problem: MFMtx/OBH: DKA (resolved), T1DM Active Problems: Diabetic gastroparesis Intractable vomiting with nausea Type 1 diabetes mellitus affecting , antepartum Overview: - History DKA (multiple admission during and [...] with HROB and Endocrinology. Pt to call [facility] and see if they are comfortable treating [...] [] A1c likely to be rechecked via academic services coordinator but if not, will check qtrimester Starvation ketoacidosis Mild pre-eclampsia in third trimester Operations/Procedures: R C/S HPI: This is a 27 y.o. female who presented with T1DM who presented with preE with SF Hospital Course: The patient was admitted to [facility] where she underwent a repeat delivery, course was complicated by glucose control Physical Exam 02/13/2023: BP 105/63 (BP Location: Left arm, Patient Position (BP): Supine) Pulse 70 Temp 97.8 ??F (36.6 ??C) (Oral) Resp 16 Ht 5' 2 (1.575 m) Wt 74.4 kg (164 lb) SpO2 100% Unknown BMI 30.00 kg/m?? General appearance: alert, in no distress Lungs: clear to auscultation bilaterally, normal respiratory effort Heart: regular rate and rhythm, S1, S2 normal, no murmur, click, rub or gallop Abdomen: Soft, non-tender. Bowel sounds normal. No masses, no organomegaly. Incision/wound Extremities: intact distal pulses, moves all extremities equally, no edema, redness or tenderness in the calves or thighs Skin: Skin color, texture, turgor normal. No rashes or lesions Neurologic: Grossly normal Discharging Physician or PA: Kelli Neal MD Discharge Condition: improving. Disposition: home. MEDICATIONS Prior to admission: No current facility-administered medications on file prior to encounter. Current Outpatient Medications on File Prior to Encounter Medication Sig Dispense Refill scopolamine (Transderm-Scop) 1 mg/72 hr patch Apply 1 Patch to skin as directed see administration instructions for 10 doses. 10 Patch 3 vit,calc76/iron/folic (PNV 29-1 ORAL) Take by mouth. aspirin (ECOTRIN EC) 81 mg Tablet, Delayed Release (E.C.) Take 81 mg by mouth daily. insulin glargine (LANTUS) 100 unit/mL vial Inject 14 units SQ qHS in the case of insulin pump failure. Notify MFM DM team [place] if pump fails 10 mL 1 Insulin Syringe-Needle U-100 0.3 mL 31 gauge x 5/16 Syringe To be used to inject insulin 5-8 timesdaily in the case of insulin pump failure. Notify MFM DM team [place] if pump fails 100 Each 1 insulin lispro (HumaLOG) 100 unit/mL vial Up to 100U/day via insulin pump 30 mL 5 promethazine (PHENERGAN) 25 mg Suppository blood sugar diagnostic Strip 1 Strip. Acetone, Urine, Test (Ketostix) Strip Use as directed. Notify MD for moderate to large ketones. 100Strip 1 metoclopramide HCl (REGLAN) 5 mg tablet Take 1 Tablet (5 mg) by mouth 4 times daily before meals and at bedtime. 120 Tablet 4 Discharge medications: No current facility-administered medications on file prior to encounter. Current Outpatient Medications on File Prior to Encounter Medication Sig Dispense Refill scopolamine (Transderm-Scop) 1 mg/72 hr patch Apply 1 Patch to skin as directed see administration instructions for 10 doses. 10 Patch 3 vit,calc76/iron/folic (PNV 29-1 ORAL) Take by mouth. aspirin (ECOTRIN EC) 81 mg Tablet, Delayed Release (E.C.) Take 81 mg by mouth daily. insulin glargine (LANTUS) 100 unit/mL vial Inject 14 units SQ qHS in the case of insulin pump failure. Notify [facility] DM team LU[place] if pump fails 10 mL 1 Insulin Syringe-Needle U-100 0.3 mL 31 gauge x 5/16 Syringe To be used to inject insulin 5-8 timesdaily in the case of insulin pump failure. Notify [facility] DM team LU[place] if pump fails 100 Each 1 insulin lispro (HumaLOG) 100 unit/mL vial Up to 100U/day via insulin pump 30 mL 5 promethazine (PHENERGAN) 25 mg Suppository blood sugar diagnostic Strip 1 Strip. Acetone, Urine, Test (Ketostix) Strip Use as directed. Notify MD for moderate to large ketones. 100Strip 1 metoclopramide HCl (REGLAN) 5 mg tablet Take 1 Tablet (5 mg) by mouth 4 times daily before meals and at bedtime. 120 Tablet 4 Current Facility-Administered Medications Medication Dose Route Frequency Provider Last Rate Last Admin insulin glargine-yfgn injection 12 Units 12 Units subCUT daily BEDTIME Cheli Hobson MD 12 Units at 02/12/23 2201 insulin lispro (HumaLOG) variable dose injection subCUT TID WITH meals Cammie Macario MD 7 Units at 02/13/23 0920 methylergonovine maleate (METHERGINE) 0.2 mg/mL (1 mL) injection 0.2 mg 0.2 mg IM every 2 hours PRNHKelli crawford MD oxytocin in sodium chloride 0.9 % (PITOCIN) 20 units in 1,000 mL infusion IV continuous PRN Kelli Flores MD carboprost tromethamine (HEMABATE) 250 mcg/mL injection 1 mL 250 mcg IM every 15 minutes PRN Kelli Flores MD miSOPROStoL (CYTOTEC) tablet 800 mcg 800 mcg Rectal ONE time PRN Kelli Flores MD tranexamic acid (CYKLOKAPRON) 1,000 mg in sodium chloride (iso-osmotic) 100 mL IVPB 1,000 mg IV ONEtime PRN Kelli Flores MD oxytocin in sodium chloride 0.9 % (PITOCIN) 20 units in 1,000 mL infusion IV continuous Kelli Florse MD New Bag at 02/07/23 0529 nalbuphine (NUBAIN) injection 2.6 mg 2.6 mg IV ONE time PRN Salma Parra MD prochlorperazine (COMPAZINE) injection 10 mg 10 mg IV ONE time PRN Kelli Flores MD haloperidol lactate (HALDOL) injection 0.5 mg 0.5 mg IV ONE time PRN Kelli Flores MD dextrose 5 % in water 250 mL flush bag 25 mL 25 mL IV see admin instructions Kelli Flores MD acetaminophen (TYLENOL) tablet 650 mg 650 mg Oral every 6 hours Kelli Flores MD 650 mg at 02/13/23 0909 ibuprofen (MOTRIN) tablet 600 mg 600 mg Oral every 6 hours Kelli Flores MD 600 mg at 02/13/23 0909 hydrocortisone (PROCTOZONE-HC) 2.5 % rectal cream Rectal BID PRN Kelli Flores MD modified lanolin (LANOLIN HFA) 100 % topical cream Topical see admin instructions Kelli Flores MD 7 Gram at 02/10/23 0926 simethicone chewable tablet 80 mg 80 mg Oral every 6 hours PRN Kelli Flores MD 80 mg at 02/09/23 0051 witch David (TUCKS) 50 % topical pads 1 Each 1 Each Topical daily PRN Kelli Flores MD ferrous sulfate tablet 325 mg 325 mg Oral daily Kelli Flores MD 325 mg at 02/13/23 0909 magnesium hydroxide (MILK OF MAGNESIA) oral suspension 30 mL 30 mL Oral at bedtime PRN Kelli Flores MD sennosides-docusate sodium (SENNA-S) 8.6-50 mg per tablet 1 Tablet 1 Tablet Oral daily BEDTIME Kelli Flores MD 1 Tablet at 02/10/232000 oxyCODONE (ROXICODONE) tablet 5 mg 5 mg Oral every 4 hours PRN Kelli Flores MD 5 mg at 02/10/23 0235 oxyCODONE (ROXICODONE) tablet 5 mg 5 mg Oral every 4 hours PRN Kelli Flores MD ondansetron (ZOFRAN ODT) tablet 4 mg 4 mg Oral every 6 hours PRN Kelli Flores MD metoclopramide (REGLAN) 5 mg/mL injection 10 mg 10 mg IV every 6 hours PRN Kelli Flores MD enoxaparin (LOVENOX) injection 40 mg 40 mg subCUT every 24 hours Anita Dawson MD 40 mg at1 0909 flu vaccine quadrivalent 2022- (6 mo+)(PF) (FLUARIX QUAD,FLULAVAL QUAD,FLUZONE QUAD) 60 mcg (15 mcg x 4)/0.5 mL syringe 60 mcg 1 Dose IM ONE time only Kelli Flores MD loperamide (IMODIUM) capsule 2 mg 2 mg Oral QID PRN Kelli Flores MD 2 mg at 02/03/23 1320 prochlorperazine (COMPAZINE) injection 10 mg 10 mg IV every 6 hours PRN Kelli Flores MD 10 mg at 02/03/23 0400 ondansetron (ZOFRAN) 4 mg/2 mL injection 4 mg 4 mg IV every 6 hours PRN Kelli Flores MD scopolamine (TRANSDERM-SCOP) 1 mg/72 hr transdermal patch 1 Patch 1 Patch Transdermal every 72 hours Kelli Flores MD 1 Patch at 02/07/23 1856 famotidine (PEPCID) tablet 20 mg 20 mg Oral BID PRN Kelli Flores MD Or famotidine PF (PEPCID) 20 mg/2 mL injection 20 mg 20 mg IV BID PRN Kelli Flores MD 20 mgat 02/03/23 0358 calcium as carbonate (TUMS) 500 mg (200 mg elemental) chewable tablet 400 mg 400 mg Oral every 6 hours PRN Kelli Flores MD docusate sodium (COLACE) capsule 100 mg 100 mg Oral BID Kelli Flores MD 100 mg at 02/13/23 0909 vit-iron fumarate-fa () 28 mg iron- 800 mcg per tablet 1 Tablet 1 Tablet Oral daily Kelli Flores MD 1 Tablet at 02/13/23 09 dextrose 5% - sodium chloride 0.9% infusion IV see admin instructions Kelli Flores MD naloxone (NARCAN) 0.4 mg/mL injection 0.1 mg 0.1 mg IV see admin instructions Kelli Flores MD dextrose 50% (D50) syringe 12.5 Gram 12.5 Gram IV see admin instructions Kelli Flores MD dextrose 50% (D50) syringe 25 Gram 25 Gram IV see admin instructions Kelli Flores MD glucagon HCL 1 mg/mL injection 1 mg 1 mg IM see admin instructions Kelli Flores MD Patient instructions: Pelvic rest x 6 weeks Follow-up with MFM in 1 week Signed: Kelli Neal MD 02/13/2023, 10:25 AM documented in this encounter Discharge Instructions * Discharge Instructions* Isaura Olmedo LMSW - 01/30/2023 3:11 PM CDT [facility] [phone] Call for assistance establishing a new Primary Care Physician. Or Search [facility] find a physician Website: [email or web address] documented in this encounter Medications at Time of Discharge Medication Sig Dispensed Refills Start Date End Date Insulin Syringe-Needle U-100 0.3 mL 31 gauge x 09/15 SyringeIndications:P re-existing type 1 diabetes mellitus in in third trimester To be used to inject insulin 5-8 times daily in the case of insulin pump failure. Notify [facility] DM team [place] if pump fails 100 Each 1 01/27/2023 insulin lispro (HumaLOG) 100 unit/mL vial Up to 100U/day via insulin pump 30 mL 5 01/20/2023 promethazine (PHENERGAN) 25 mg Suppository 10/09/2022 blood sugar diagnostic Strip 1 Strip. scopolamine (Transderm-Scop) 1 mg/72 hr patch Apply 1 Patch to skin as directed see administration instructions for 10 doses. 10 Patch 3 12/09/2022 Acetone, Urine, Test (Ketostix) StripIndications:Sup ervision of high risk in second trimester,Type 1 diabetes mellitus without complication Use as directed. Notify MD for moderate to large ketones. 100 Strip 1 12/09/2022 vit,calc76/iron/foli c (PNV 29-1 ORAL) Take by mouth. 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 120 Tablet 4 08/31/2022 insulin glargine (Lantus Solostar U-100 Insulin) 100 unit/mL pen syringeIndications:P re-existing type 1 diabetes mellitus in in third trimester Inject 8 units under the skin in the morning and 12 units at night. 15 mL 4 02/13/2023 02/18/2023 insulin lispro (HumaLOG KwikPen Insulin) 100 unit/mL pen syringe Inject 1 unit of insulin for every 10g of carbs before meals. Inject an additional unit of insulin for every 35mg/dL greater than 100 mg/dL before your meals. Max daily units: 100 15 mL 3 02/13/2023 02/18/2023 documented as of this encounter Progress Notes * Viridiana Wayne RN - 02/13/2023 12:39 PM CDT Chey Menjivar will be discharged via wheelchair to home. Chey Menjivar is accompanied by significant other and will be transported via private vehicle. * Kelli Neal MD - 02/13/2023 10:25 AM CDT MATERNAL MEDICINE PROGRESS NOTE The chart was reviewed. The patient was seen and evaluated. The patient was accompanied by . 35w5d Hospital day # LOS: 15 days Problem List: High risk 35w5d T1DM S: Pt comfortable. Blood sugars controlled O: Temp Readings from Last 3 Encounters: 02/13/23 97.8 ??F (36.6 ??C) (Oral) BP Readings from Last 3 Encounters: 02/13/23 105/63 01/06/23 112/70 12/09/22 100/68 Pulse Readings from Last 3 Encounters: 02/13/23 70 01/06/23 98 12/09/22 97 Physical exam: General: NAD/well appearing Heart: RRR no murmur noted Lungs: non-labored respirations No intake or output data in the 24 hours ending 02/13/23 1025 Lab Results Component Value Date GLUCPOC 173 (H) 02/13/2023 Lab Results Component Value Date WBC 9.1 02/05/2023 HGB 9.4 (L) 02/05/2023 HCT 30.3 (L) 02/05/2023 PLT 266 02/05/2023 MCV 83.9 02/05/2023 Lab Results Component Value Date ALT 12 02/05/2023 AST 23 02/05/2023 Lab Results Component Value Date URICACID 7.7 (H) 01/29/2023 Assessment: 27 y.o. at 35w5d gestation with complicated by Plan: T1DM - No changes to current regimen - DC home and follow up in office in 1 week 2. PreE with SF - No meds, Bps controlled The patient verbalized her understanding the above discussion and plan. She had her questions addressed to her satisfaction. Kelli Neal MD FACOG FACS Maternal Medicine Time Statement: A total of 20 minutes was spent in counseling and coordination of care of which greater than 50 percent of this total was spent in face to face counseling on the patient's floor. * Antonella Pantoja MD - 02/13/2023 6:52 AM CDT Rounding Note: Subjective: Patient doing well. Denies WALTERS, change in vision, CP, SOB, RUQ pain. Tolerating general diet, ambulating without difficulty. Voiding spontaneously, passing flatus. Objective: Vitals: 02/12/23 0655 02/12/23 1510 02/12/23200902/13/23 0641 BP: 117/79 105/77 117/82 105/63 BP Location: Left arm Left arm Left arm Patient Position (BP): Sitting Sitting Supine Pulse: 86 82 77 70 Resp: 18 18 18 16 Temp: 97.8 ??F (36.6 ??C) 98 ??F (36.7 ??C) 97.6 ??F (36.4 ??C) 97.8 ??F (36.6 ??C) TempSrc: Oral Oral Oral Oral SpO2: 100% Weight: Height: General: Well-developed, well-nourished female HEENT: NCAT, moist mucus membranes Heart: acyanotic Lungs: non labored breathing Abdomen: soft, non-distended Extremities: No calf tenderness. SCDs on and cycling Labs: No recent labs Diabetes Checklist - Diagnosed at 13 years old - Managed outside by Dr. Sanches - Pre- regimen T slim and dexcom automode - Last DKA Fall 2021 - Hypoglycemic awareness at 60s - Last dilated eye exam: >5 years ago - Last EKG: unknown, ordered 08/2022 - Evidence of end organ damage: none - TSH: ordered - Hgb A1c: 5.6% (08/2022) - Baseline PEC labs: elevated 24h urine protein at 400, otherwise wnl Assessment/Plan: 27 y.o. s/p RLTCS 02/07. Post op - DVT ppx: SCDs, Lovenox - Ambulate - General diet - Voiding spontaneously 2. T1DM - A1c 5.6% (08/2022) - 24hr TUP 407 baseline per MFM - Humalog pump + Dexcom CGM, see above for most recent settings, adjusted 01/20/23 - Patient does not have insulin pump supplies, will continue subQ insulin with the following regimen - PP: Lantus 08/12 (adjusted 02/11)>Humalog ICR 1:10 g for all meals; sensitivity of increased to1:35 >100; will continue to adjust as appropriate - Total insulin: 57 u 02/11 (24 hr period) - Glucose last 24h: 70s-250s - F/Pre/Post/qhs/0200; or if patient experiences symptoms of hypoglycemia 3. Pre-e w/o SF - asymptomatic - The range of BP in the last 24 hours is: BP: (105-117)/(63-82) - acute: none; maintenance: none - Labs wnl 02/05, p/c 1.99 (collected in the setting of starvation acidosis) - Continue to monitor BPs Plan: Consider discharge home today. Antonella Pantoja MD Fire Marshal Resident, PGY-2 Pager#: [phone] * Shonda Beckford RN - 02/12/2023 10:10 PM CDT 1 Hr post sugar 67. Gave 4 oz apple juice. * Marylou Schwartz RN - 02/12/2023 7:46 AM CDT The pt is stable and doing well. The pt is able to void spontaneously without pain. During fundal assessments the pt has remained firm and midline with lochia within normal limits. Pain has been controled with po medications.Patient is breast feeding, pumping and bottle feeding. Infant tolerating well. Sugars were stable throughout the night, refer to other note about insulin doses throughout thenight. Patient has paperwork completed, ambulating independently, IV has been removed. Mother is progressing towards discharge. Incision is clean,dry and intact with some bruising. The mother is attaching to the well. There are no concerns at this time. * Marylou Schwartz RN - 02/12/2023 6:48 AM CDT 2049: RN messaged Dr. Steele about insulin orders and clarified that patient did not need post prandial correction dose after her meal and BS was 131. Cedric said no correction dose. She also said patient was fine to snack during the night but would need insulin to cover it, 1 unit per 10g of carbs. Patient had cheese cubes at 2129. Prior to eating she received one unit of Humalog. Patient received long acting insulin around 2229 which was 12 units. 2 AM BS was 137 and Cedric was made aware of this and did not have any orders at the time. 5 AM sugar was 212. Patient requested a correction dose and Cedric ordered 3 units. * Kelli Neal MD - 02/12/2023 6:42 AM CDT Rounding Note: Subjective: Patient doing well. Denies WALTERS, change in vision, CP, SOB, RUQ pain. Tolerating general diet, ambulating without difficulty. Voiding spontaneously, passing flatus. Objective: Vitals: 02/10/23 0702 02/10/23200402/11/23 0735 02/11/232028 BP: 115/75 128/74 116/74 110/70 BP Location: Left arm Left arm Patient Position (BP): Sitting Sitting Pulse: 84 84 80 77 Resp: 18 18 18 16 Temp: 97.6 ??F (36.4 ??C) 97.4 ??F (36.3 ??C) 97.9 ??F (36.6 ??C) 97.5 ??F (36.4 ??C) TempSrc: Oral Oral Oral Oral SpO2: 99% Weight: Height: General: Well-developed, well-nourished female HEENT: NCAT, moist mucus membranes Heart: acyanotic Lungs: non labored breathing Abdomen: soft, non-distended Extremities: No calf tenderness. SCDs on and cycling Labs: No results for input(s): WBC , HGB , HCT , PLT , NA , K , CL , CO2 , BUN , CREAT , GLUCOSE , ALT , AST , CPK , CKMB , TROPONIN , TROPONIINT , TROPINTR , INR in the last 72 hours. P/c ratio 1.99 (01/29) Diabetes Checklist - Diagnosed at 13 years old - Managed outside by Dr. Sanches - Pre- regimen T slim and dexcom automode - Last DKA Fall 2021 - Hypoglycemic awareness at 60s - Last dilated eye exam: >5 years ago - Last EKG: unknown, ordered 08/2022 - Evidence of end organ damage: none - TSH: ordered - Hgb A1c: 5.6% (08/2022) - Baseline PEC labs: elevated 24h urine protein at 400, otherwise wnl Assessment/Plan: 27 y.o. s/p RLTCS 02/07. Post op - DVT ppx: SCDs, Lovenox - Ambulate - General diet - Voiding spontaneously 2. T1DM - A1c 5.6% (08/2022) - 24hr TUP 407 baseline per MFM - Humalog pump + Dexcom CGM, see above for most recent settings, adjusted 01/20/23 - Patient does not have insulin pump supplies, will continue subQ insulin with the following regimen - PP: Lantus 08/12 (adjusted 02/11)>Humalog ICR 1:10 g for all meals; sensitivity of increased to1:35 >100; will continue to adjust as appropriate - Total insulin: 57 u 02/11 (24 hr period) - Glucose over course of yesterday: 131-350s - F/Pre/Post/qhs/0200; or if patient experiences symptoms of hypoglycemia - ADAT, general diet 3. Pre-e w/o SF - The range of BP in the last 24 hours is: BP: (110-116)/(70-74) - asymptomatic currently - acute: none; maintenance: none - Labs wnl 02/05, p/c 1.99 (collected in the setting of starvation acidosis) - Continue to monitor BPs Plan: monitor BP and BG this morning. Due to improved glucose control 10/12 PM, consider discharge home today. Patient got Dexcom yesterday, has been calibrating. Cheli Hobson MD PATRON ATTENDANT Resident, PGY-3 MFM Attending Addendum The patient was seen by myself personally and discussed with the resident. The note was reviewed. Agree with the findings and plan as documented above. Fasting this AM 180s (from 130s at 2AM) Will likely need more PM basal Monitor ICR and correction today in hospital. No complaints from patient, she is working on getting her pump BP 117/79 Pulse 86 Temp 97.8 ??F (36.6 ??C) (Oral) Resp 18 Ht 5' 2 (1.575 m) Wt 74.4 kg (164 lb) SpO2 99% Yes BMI 30.00 kg/m?? A/P 27 y.o. @ 35w5d s/p R C/S T1DM - Control has been suboptimal, will continue current regimen, plan on increasing PM Lantus to 14 and will assess daytime basal based on values today 2, PreE with SF - No meds, BPS controlled Kelli Neal MD FACOG FACS Maternal Medicine 02/12/2023 A total of 20 minutes were spent on the floor managing this patient's care today, of which greater than 50% was spent in [id number] counseling and/or coordination of care with the patient, hospitalstaff, and hospital services. The nature of the counseling and coordinations of care is as documented above. * Zbigniew Marino MD - 02/11/2023 6:37 AM CDT Rounding Note: Subjective: Patient doing well. Denies WALTERS, change in vision, CP, SOB, RUQ pain. Tolerating general diet, ambulating without difficulty. Voiding spontaneously, passing flatus. Objective: Vitals: 02/09/23 1554 02/09/23 1943 02/10/23 0702 02/10/232004 BP: 108/72 106/62 115/75 128/74 BP Location: Left arm Left arm Left arm Patient Position (BP): Sitting Sitting Sitting Pulse: 84 84 Resp: 18 16 18 18 Temp: 97.9 ??F (36.6 ??C) 97.9 ??F (36.6 ??C) 97.6 ??F (36.4 ??C) 97.4 ??F (36.3 ??C) TempSrc: Oral Oral Oral Oral SpO2: Weight: Height: General: Well-developed, well-nourished female HEENT: NCAT, moist mucus membranes Heart: acyanotic Lungs: non labored breathing Abdomen: soft, non-distended; incision clean/dry/intact Extremities: No calf tenderness. SCDs on and cycling Labs: No results for input(s): WBC , HGB , HCT , PLT , NA , K , CL , CO2 , BUN , CREAT , GLUCOSE , ALT , AST , CPK , CKMB , TROPONIN , TROPONIINT , TROPINTR , INR in the last 72 hours. P/c ratio 1.99 (01/29) Diabetes Checklist - Diagnosed at 13 years old - Managed outside by Dr. Sanches - Pre- regimen T slim and dexcom automode - Last DKA Fall 2021 - Hypoglycemic awareness at 60s - Last dilated eye exam: >5 years ago - Last EKG: unknown, ordered 08/2022 - Evidence of end organ damage: none - TSH: ordered - Hgb A1c: 5.6% (08/2022) - Baseline PEC labs: elevated 24h urine protein at 400, otherwise wnl Assessment/Plan: 27 y.o. s/p RLTCS 02/07. Post op - DVT ppx: SCDs, Lovenox - Ambulate - General diet - Voiding spontaneously 2. T1DM - A1c 5.6% (08/2022) - 24hr TUP 407 baseline per MFM - Humalog pump + Dexcom CGM, see above for most recent settings, adjusted 01/20/23 - Patient does not have insulin pump supplies, will continue subQ insulin with the following regimen - PP: Lantus 4/10 (increased 10/11 PM)>8/10 (proposed changed for today, Humalog ICR 1:10 g for all meals; sensitivity of increased to 1:50 >100; will continue to adjust as appropriate - Glucose over course of yesterday: 130s-350s (pt reports 353 true fasting) - F/Pre/Post/qhs/0200; or if patient experiences symptoms of hypoglycemia - ADAT, general diet 3. Pre-e w/o SF - The range of BP in the last 24 hours is: BP: (115-128)/(74-75) - asymptomatic currently - acute: none; maintenance: none - Labs wnl 10/6, p/c 1.99 (collected in the setting of starvation acidosis) - Continue to monitor BPs Plan: monitor BP and BG. Will discuss proposed changes to insulin regimen after discussion with MFM. Routine post operative cares. Cheli Hobson MD PATRON ATTENDANT Resident, PGY-3 MFM Attending Addendum: The patient was seen and evaluated by myself and the resident/CASINO BEVERAGE SERVER. Agree with the findings and plan as documented above. All pertinent questions addressed and answered. Chief Complaint: complicated by the aforementioned concerns The standpoint of her preeclampsia, Ms. Menjivar is doing. She has no symptoms and her blood pressure is well controlled. Her type 1 diabetes remains poorly controlled. We discussed this morning and she reported that she had concerns that when the nurse was injecting her insulin so that it was leaking out. She denied eating snacks between meals. We discussed the fact that if she was eating snack she would need to takeher insulin to carb ratio dose of insulin with it. Basal insulin was increased today as above. Correction factor increased as well. I discussed the case with our family living educator and Ms. Menjivar was given information to call to get her insulin pump supplies. We discussed the importance of good glycemic control to avoid another episode of diabetic ket oacidosis. Ms. Menjivar reports that she is not having no difficulty with nausea, vomiting or keeping fluids down. Zbigniew Marino MD MS FACOG Maternal Medicine 02/11/2023 On the day of the visit, I spent 30 minutes providing care to this patient including Preparing to see the patient, Obtaining and/or reviewing separately obtained history, Performing a medically appropriate examination and/or evaluation, Counseling and educating the patient/family/caregiver, and Docu menting clinical information in the medical record. Complexity of decision making moderate due to complicated by the aforementioned concerns.The nature of the counseling and coordinations of care is as documented above. * Carmen Mar RN - 02/10/2023 1:[address] Hobson and Dr. Marino with M, aware of this mornings blood sugars and insulin dosages given. Orders have been modified. * Enrico Casillas MD - 02/10/2023 10:40 AM CDT As per note of Dr. Hobson, notable at this time is the hyperglycemia (readings > 300 this morning) Discharge will be delayed pending satisfactory results of insulin changes. Enrico Casillas MD OB Hospitalist * Zbigniew Marino MD - 02/10/2023 6:43 AM CDT Rounding Note: Subjective: Patient doing well. Denies WALTERS, change in vision, CP, SOB, RUQ pain. Tolerating general diet, ambulating without difficulty. Voiding spontaneously, passing flatus. Objective: Vitals: 02/09/23 0505 02/09/23 0705 02/09/23 1554 02/09/23 194 BP: 111/78 103/68 108/72 106/62 BP Location: Left arm Left arm Left arm Patient Position (BP): Sitting Sitting Sitting Pulse: 72 Resp: 16 18 18 16 Temp: 97.5 ??F (36.4 ??C) 98.1 ??F (36.7 ??C) 97.9 ??F (36.6 ??C) 97.9 ??F (36.6 ??C) TempSrc: Oral Oral Oral Oral SpO2: 98% Weight: Height: General: Well-developed, well-nourished female HEENT: NCAT, moist mucus membranes Heart: acyanotic Lungs: non labored breathing Abdomen: soft, non-distended; incision clean/dry/intact Extremities: No calf tenderness. SCDs on and cycling Labs: No results for input(s): WBC , HGB , HCT , PLT , NA , K , CL , CO2 , BUN , CREAT , GLUCOSE , ALT , AST , CPK , CKMB , TROPONIN , TROPONIINT , TROPINTR , INR in the last 72 hours. P/c ratio 1.99 (01/29) Diabetes Checklist - Diagnosed at 13 years old - Managed outside by Dr. Sanches - Pre- regimen T slim and dexcom automode - Last DKA Fall 2021 - Hypoglycemic awareness at 60s - Last dilated eye exam: >5 years ago - Last EKG: unknown, ordered 08/2022 - Evidence of end organ damage: none - TSH: ordered - Hgb A1c: 5.6% (08/2022) - Baseline PEC labs: elevated 24h urine protein at 400, otherwise wnl Assessment/Plan: 27 y.o. s/p RLTCS 02/07. Post op - DVT ppx: SCDs, Lovenox - Ambulate - General diet - Voiding spontaneously 2. T1DM - A1c 5.6% (08/2022) - 24hr TUP 407 baseline per MFM - Humalog pump + Dexcom CGM, see above for most recent settings, adjusted 01/20/23 - Patient does not have insulin pump supplies, will continue subQ insulin with the following regimen - PP: Lantus -/6 (reduced 10/10 AM), Humalog ICR 1:10 g for all meals; sensitivity of increased to 1:50 >100; will continue to adjust as appropriate - Glucose over course of yesterday: 70s-300s (fasting this AM: 317, true fasting - F/Pre/Post/q/0; or if patient experiences symptoms of hypoglycemia - ADAT, general diet 3. Pre-e w/o SF - The range of BP in the last 24 hours is: BP: (103-108)/(62-72) - asymptomatic currently - acute: none; maintenance: none - Labs wnl 02/05, p/c 1.99 (collected in the setting of starvation acidosis) - Continue to monitor BPs Plan: monitor BP and BG. Will discuss appropriate changes to insulin regimen after discussion with MFM. Routine post operative cares. Cheli Hobson MD PATRON ATTENDANT Resident, PGY-3 MFM Attending Addendum: The patient was seen and evaluated by myself and the resident/CASINO BEVERAGE SERVER. Agree with the findings and plan as documented above. All pertinent questions addressed and answered. Chief Complaint: complicated by the aforementioned concerns I agree with the plan of care and insulin changes as above. Zbigniew Marino MD MS FACOG Maternal Medicine 02/10/2023 On the day of the visit, I spent 30 minutes providing care to this patient including Preparing to see the patient, Obtaining and/or reviewing separately obtained history, Performing a medically appropriate examination and/or evaluation, Counseling and educating the patient/family/caregiver, and Docu menting clinical information in the medical record. Complexity of decision making moderate due to complicated by the aforementioned concerns.The nature of the counseling and coordinations of care is as documented above. * Janice Guerrier RN - 02/09/2023 8:01 PM CDT Patients blood sugars ranged from 138-272 during shift. Her orders were adjusted and this RN spoke with PGY3 Jazlyn regarding changes and notified of high blood sugar and gave insulin per MAR. * Cheli Hobson MD - 02/09/2023 1:27 PM CDT Brief Resident Note: Discussed with Dr. Marino this AM. Will adjust insulin to the following regimen: Lantus 6u in the evening. ICR 1:10 for lunch and dinner, no breakfast insulin at this time. Correctional sensitivity of 1:100>100. Cheli Hobson MD PATRON ATTENDANT Resident, PGY-3 * Rosalinda Francis MD - 02/09/2023 6:35 AM CDT Images from the original note were not included. Rounding Note: Subjective: Patient doing well. Denies WALTERS, change in vision, CP, SOB, RUQ pain. Tolerating general diet, ambulating without difficulty. Voiding spontaneously, passing flatus. Objective: Vitals: 02/08/23 1526 02/08/23 2145 02/09/23 0051 02/09/23 0505 BP: 116/72 109/60 109/69 111/78 BP Location: Left arm Right arm Left arm Left arm Patient Position (BP): Sitting Sitting Sitting Sitting Pulse: 94 Resp: 18 16 14 16 Temp: 97.6 ??F (36.4 ??C) 97.9 ??F (36.6 ??C) 98.1 ??F (36.7 ??C) 97.5 ??F (36.4 ??C) TempSrc: Oral Oral Oral Oral SpO2: Weight: Height: General: Well-developed, well-nourished female HEENT: NCAT, moist mucus membranes Heart: acyanotic Lungs: non labored breathing Abdomen: soft, non-distended; incision clean/dry/intact Extremities: No calf tenderness. SCDs on and cycling Labs: No results for input(s): WBC , HGB , HCT , PLT , NA , K , CL , CO2 , BUN , CREAT , GLUCOSE , ALT , AST , CPK , CKMB , TROPONIN , TROPONIINT , TROPINTR , INR in the last 72 hours. P/c ratio 1.99 (01/29) Diabetes Checklist - Diagnosed at 13 years old - Managed outside by Dr. Sanches - Pre- regimen T slim and dexcom automode - Last DKA Fall 2021 - Hypoglycemic awareness at 60s - Last dilated eye exam: >5 years ago - Last EKG: unknown, ordered 08/2022 - Evidence of end organ damage: none - TSH: ordered - Hgb A1c: 5.6% (08/2022) - Baseline PEC labs: elevated 24h urine protein at 400, otherwise wnl Assessment/Plan: 27 y.o. s/p RLTCS 02/07. Post op - DVT ppx: SCDs, Lovenox - Ambulate - General diet - Voiding spontaneously 2. T1DM - A1c 5.6% (08/2022) - 24hr TUP 407 baseline per MFM - Humalog pump + Dexcom CGM, see above for most recent settings, adjusted 01/20/23 - Patient does not have insulin pump supplies, will continue subQ insulin with the following regimen - PP: Lantus 12/08 (reduced 10/9 AM), Humalog -/08/04, will adjust as appropriate - Consider leaving lantus the same, and reducing mealtime Humalog to -/06/04 - pt plans to go back to insulin pump eventually pending insurance - F/Pre/Post/qhs/0200; or if patient experiences symptoms of hypoglycemia - ADAT, general diet 3. Pre-e w/o SF - The range of BP in the last 24 hours is: BP: (105-116)/(60-78) - asymptomatic currently - acute: none; maintenance: none - Labs wnl 02/05, p/c 1.99 (collected in the setting of starvation acidosis) - Continue to monitor BPs Plan: monitor BP and BG. Consider insulin plan as above with proposed changes, will discuss with MFM. Routine post operative cares. Cheli Hobson MD PATRON ATTENDANT Resident, PGY-3 Attending Addendum The patient's chart and plan of care has been reviewed. I have seen and examined this patient independently. I agree with the above with the following additions: None. Agree with above insulin adjustments. Will also confer with MFM. Patient is convalescing appropriately otherwise from a postoperative standpoint. Continue care as outlined above. Rosalinda Francis MD OB Hospitalist 02/09/2023 7:57 AM * Lauren Rivera RN - 02/08/2023 7:55 PM CDT Images from the original note were not included. [facility] Adult Inpatient HYPOglycemia Protocol [facility] Approved by: [facility] - Medical Executive Committee Approval Date: 11/19/2022 Enter the protocol in the patient's electronic health record using smartphrase: .hypoglycemiaprotocoladult Nursing Orders: Nursing enters ???per protocol?? IV fluid and POC Lab orders. Any time a glucose level is < 70 mg/dL begin (adult) inpatient hypoglycemia protocol), notify provider, and enter the orders via order set ECR: HYPOGLYCEMIA - ADULT NPO Status or Poor Oral Intake (less than 50% of meal): If a patient is placed NPO and POC glucose or serum glucose is less than 100 mg/dL at any point during NPO status begin dextrose containing fluids (see Medications Orders below) unless on other dextrose containingfluid. After initiating dextrose containing fluids, place call to provider for further orders. POC glucose at least Q4 hrs and PRN. Interruption of Tube Feeding, TPN, or PPN: Any time a patient is receiving continuous (not cycled) enteral or parenteral nutrition, if the patient is on insulin and there is an interruption (consider interruptions for high residuals or clogged tubing) Initiate Dextrose 10% containing fluids at the same rate of enteral or parenteral feeds, then contact provider for further management. OR FOR PATIENTS WITH ACUTE BRAIN INJURY (related to current hospitalization, including any patient with a blunt or penetrating injury resulting in TBI): Initiate D5NS IV at the same rate of enteral or parenteral feeds. POC glucose 2 hours after interruption of glucose source and PRN. Repeat POC glucose every four hours and PRN until diet is resumed. For Post- Glucose Tolerance Testing: If serum results are less than 70 mg/dL, check a POC glucose to determine if patient is still less than 70 mg/dL. IF POC is less than 70 mg/dL, continue to follow Adult Inpatient Hypoglycemia Protocol for POC testing and treatment orders IF POC is greater than 70 mg/dL, additional POC no longer needed, continue with glucose tolerance testing Laboratory Orders: Point of Care (POC) Testing: Recheck POC Glucose in 15 minutes and re-treat every 15 minutes until blood glucose is 70 mg/dL or greater. Once POC glucose result is 70 mg/dL or greater, POC glucose to be checked every 30 minutes for 3 consecutive occurrences Any time a patient receiving insulin is NPO, obtain POC glucose Q 4 hours until diet is resumed. Any time enteral or parenteral nutrition is interrupted, obtain a POC glucose 2 hours after interruption of glucose source and repeat every four hours or more often per nursing judgment. Obtain POC glucose at any time if suspecting hypoglycemia. RESCUE ORDERS - entered by RN or the Pharmacist Medication Orders When NPO AND if glucose less than 100 mg/dL at any point during NPO status OR if there is a trend in the patient consuming less than 40 points in their meal and the prandial dose of insulin has been given, and the blood glucose is less than 100 mg/dL: D5NSIV to infuse at 40mL/hr FOR PATIENTS WITH ACUTE BRAIN INJURY (related to current hospitalization): D5NS IV to infuse at 40ml/hr Meter Glucose less than 70, patient CONSCIOUS, able to swallow: Glucose Level Treatment 40-69 mg/dL Give 15 grams of carbohydrate such as: Regular Soda (6 oz), Apple Juice (4 oz), or ?? cup regular jello Less Than 40 mg/dL Give 30 grams of carbohydrate such as: Regular Soda (12 oz), Apple juice (8 oz),or 1 cup regular jello Meter Glucose less than 70, IV Access, patient UNCONSCIOUS, unable to swallow and/or NPO Glucose Level Treatment 40-69 mg/dL Dextrose 50% IV, give 12.5 grams (25 ml), IV push ONE TIME Dextrose 10% IV, give 12.5 grams (125 mL), infuse over 7.5 minutes Less than 40 mg/dL Dextrose 50% IV, give 25 grams (50 ml), IV push ONE TIME Dextrose 10% IV, give 25 grams (250 mL), infuse over 15 minutes Dextrose 10% may be substituted for Dextrose 50% based on availability Meter Glucose less than 70, NO IV Accessible, patient UNCONSCIOUS, unable to swallow and/or NPO Glucose Level Treatment Less than 70 mg/dL Administer IM GLUCAGON 1 mg one time. After administration of glucagon is complete insert peripheral IV and notify physician After Hypoglycemic Symptoms Subside, Give a Snack if NOT NPO. If NPO contact the provider for additional orders If more than 1 hour until mealtime, administer a snack. SNACK CHOICES: Should include 1 carb and 1 fat servin saltine crackers and 2 teaspoons peanut butter; or 2 tyrese crackers and 2 teaspoons peanut butter; or 1 oz cheese and 6 saltine crackers; or 1 cup 2% milk and 6 saltine crackers. * Lauren Rivera RN - 02/08/2023 4:54 PM CDT HYPOGLYCEMIC EVENT INFORMATION Event Time: 1700 Event Description/cause factors: Patient feeling shaky and hot, asked to come assess patient's blood sugar Initial Blood glucose result: 56 mg/dl Immediate re-check result: 54mg/dl The following immediate glucose source was given: Patient requested 1 pack of tyrese crackers and 1packet of peanut butter 15 minute re-check result after hypoglycemic event: 62 MD notified to discuss strategies to prevent another event: None, PGY-2 DR. Magali Quinones stated no new orders at this time, they may adjust her insulin doses in the morning. Next steps taken: Blood glucose less than 70: 6oz regular white soda that she sipped on and a white milk. Once blood glucose greater than 70 the below steps were taken. 1731- Blood sugar was 73. Post Event Monitoring to start when blood glucose greater than 70 mg/dL 30 minute re-check result: 111 60 minute re-check result: 125 90 minute re-check result: 152 1900- Patient dinner came to room. Blood sugar was 152. Per nursing judgement, gave patient 4 unitsof ordered insulin with dinner. Hypoglycemic event resolved. Notified Dr. Macario of blood sugar levels and asked if we should give the dinner time dose of insulin. Orders received after patient was given insulin that the patient should receive her dinner time dose of insulin. Asked Dr. Macario about patient's diet due to her receiving ensure's on her plate but not requiring them. Instructed to call professor of food biochemistry in the morning and inquire about removing the ensure's from patient tray. Lauren Rivera RN * Zbigniew Marino MD - 02/08/2023 6:42 AM CDT Rounding Note: Subjective: Pt doing well. Denies WALTERS, change in vision, CP, SOB, RUQ pain. Tolerating general diet,ambulating without difficulty. Voiding spontaneously, passing flatus. Objective: Vitals: 02/07/23 1554 02/07/23 1740 02/07/23 2038 02/08/23 0012 BP: (!) 94/54 100/60 BP Location: Patient Position (BP): Pulse: 86 80 Resp: 16 16 18 18 Temp: 97.8 ??F (36.6 ??C) 97.5 ??F (36.4 ??C) TempSrc: Oral Oral SpO2: 97% Weight: Height: General: Well-developed, well-nourished female HEENT: NCAT, moist mucus membranes Heart: acyanotic Lungs: non labored breathing Extremities: No calf tenderness. SCDs on and cycling Labs: No results for input(s): WBC , HGB , HCT , PLT , NA , K , CL , CO2 , BUN , CREAT , GLUCOSE , ALT , AST , CPK , CKMB , TROPONIN , TROPONIINT , TROPINTR , INR in the last 72 hours. P/c ratio 1.99 (01/29) Diabetes Checklist - Diagnosed at 13 years old - Managed outside by Dr. Sanches - Pre- regimen T slim and dexcom automode - Last DKA Fall 2021 - Hypoglycemic awareness at 60s - Last dilated eye exam: >5 years ago - Last EKG: unknown, ordered 08/2022 - Evidence of end organ damage: none - TSH: ordered - Hgb A1c: 5.6% (08/2022) - Baseline PEC labs: elevated 24h urine protein at 400, otherwise wnl Assessment/Plan: 27 y.o. s/p RLTCS 02/07. Post op - bandage to be removed 24-48 hrs post CS - SCDs, Lovenox - Ambulate - Mendoza to be removed per protocol 3. T1DM - A1c 5.6% (08/2022) - 24hr TUP 407 baseline per MFM - Humalog pump + Dexcom CGM, see above for most recent settings, adjusted 01/20/23 - Patient does not have insulin pump supplies, will continue subQ insulin with the following regimen -PP: Lantus 02/09, Humalog /08/04, will adjust as appropriate - pt plans to go back to insulin pump eventually pending insurance - F/Pre/Post/qhs/0200; or if patient experiences symptoms of hypoglycemia - ADAT, general diet 4. Hx CS - Indication: complete and pushing with intolerance - Hgb 9.4 (02/05) - s/p venofer infusion 02/01 5. Hx RPL 6. Pre-e w/o SF - The range of BP in the last 24 hours is: BP: (94-126)/(54-79) - asymptomatic currently - acute: none; maintenance: none - Labs wnl 02/05, p/c 1.99 (collected in the setting of starvation acidosis) - Continue to monitor BPs Plan: monitor BP and BG. Insulin plan as above. Routine post operative cares Cheli Hobson MD PATRON ATTENDANT Resident, PGY-3 Attending Addendum The patient's chart and plan of care has been reviewed. I have seen and examined this patient independently. I agree with the above with the following additions: continue routine PP care, recovering appropriately. MFM managing T1DM. Lawson Abdalla MD OB Hospitalist 02/08/2023 8:26 AM MFM Attending Addendum: The patient was seen and evaluated by myself and the resident/CASINO BEVERAGE SERVER. Agree with the findings and plan as documented above. All pertinent questions addressed and answered. Chief Complaint: complicated by the aforementioned concerns I agree with the plan of care as above. Lantus decreased to 8/8 today. MFM will continue to follow,including managing diabetes through our clinic until Chey has an appointment with her academic services coordinator. Zbigniew Marino MD MS FACOG Maternal Medicine 02/08/2023 On the day of the visit, I spent 25 minutes providing care to this patient including Preparing to see the patient, Obtaining and/or reviewing separately obtained history, Performing a medically appropriate examination and/or evaluation, Counseling and educating the patient/family/caregiver, and Docu menting clinical information in the medical record. Complexity of decision making moderate due to complicated by the aforementioned concerns.The nature of the counseling and coordinations of care is as documented above. * Edyta Hathaway RN - 02/08/2023 5:18 AM CDT Notified resident of patient finishing hypoglycemic event management at 0415. Resident orders to not do fasting BS this AM and check prior to breakfast. * Edyta Hathaway RN - 02/08/2023 2:19 AM CDT HYPOGLYCEMIC EVENT INFORMATION (Use F2 button to move through the document) Event Time: 210 Event Description/cause factors: None Initial Blood glucose result: 66 mg/dl Immediate re-check result: 68 mg/dl The following immediate glucose source was given: 4oz apple juice 15 minute re-check result after hypoglycemic event: 71 MD notified to discuss strategies to prevent another event: MD notified; no new orders Next steps taken: Blood glucose less than 70: None Once blood glucose greater than 70 the below steps were taken. BS greater than 70 and within 1 hour of mealtime: continued checking blood glucose every 30 minutesx3 with results documented below. BS greater than 70 and more than 1 hour until next meal: 1 packet peanut butter & 1 packet tyrese crackers Continued checking blood glucose every 30 minutes x3 with results documented below. Post Event Monitoring to start when blood glucose greater than 70 mg/dL 30 minute re-check result: 90 60 minute re-check result: 71 90 minute re-check result: 77 Edyta Hathaway RN * Kitty Grimm RN - 02/07/2023 4:37 PM CDT Resident aware of no change in marked dressing at this time. RN to let resident know if there are any further changes. * Kitty Grimm RN - 02/07/2023 3:26 PM CDT 0842: Resident-year 2 advised of bleeding noted on right side of dressing. This RN to advise Resident year 1 if more bleeding is noted. 1106: Fluid orders verified with resident. Patient does not need to be on the LR or D5 if tolerating fluids. Patient is tolerating fluids at this time. 1128: Resident notified of hypoglycemic episode on 02/06 at 1600 per MAR note. Normal humalog to be given as long as POC glucose in within normal limits. 1119-0159: Slight extension of previously marked area on dressing noted. Residents year 1 and 2 advised. Resident year 1 will be by to assess when able. 1526: Resident year two advised that patient scored a 16 on her edinburgh, never to question 10. Social work consult placed per protocol. No new orders received at this time. * Pato Castorena MD - 02/07/2023 8:39 AM CDT High Risk Rounding Note Primary OB: Under the care of OB Hospitalist Problem List: Starvation ketosis Anion Gap Metabolic Acidosis T1DM H/o CS H/o RPL IUP at 35w5d Subjective: Pt doing well post CS this AM. Denies WALTERS, change in vision, CP, SOB, RUQ pain. Discussed BG management . She reports that she plans to go back on an insulin pump once she hears back from her insurance on what will be covered. She will continue subcutaneous insulin while in thehospital. Objective: Vitals: 02/07/23 0700 02/07/23 0715 02/07/23 0730 02/07/23 0749 BP: 120/79 126/72 115/76 117/75 BP Location: Patient Position (BP): Pulse: 76 75 80 76 Resp: 22 20 21 18 Temp: TempSrc: SpO2: 100% 100% 99% 100% Weight: Height: General: Well-developed, well-nourished female HEENT: NCAT, moist mucus membranes Heart: acyanotic Lungs: non labored breathing Extremities: No calf tenderness. SCDs on and cycling Labs: Recent Labs 02/05/23 0109 02/05/23 0110 WBC -- 9.1 HGB -- 9.4* HCT -- 30.3* PLT -- 266 NA 138 -- K 4.3 -- CL 101 -- CO2 30* -- BUN 4* -- CREAT 0.54 -- GLUCOSE 68* -- ALT 12 -- AST 23 -- P/c ratio 1.99 (01/29) Diabetes Checklist - Diagnosed at 13 years old - Managed outside by Dr. Sanches - Pre- regimen T slim and dexcom automode - Last DKA Fall 2021 - Hypoglycemic awareness at 60s - Last dilated eye exam: >5 years ago - Last EKG: unknown, ordered 08/2022 - Evidence of end organ damage: none - TSH: ordered - Hgb A1c: 5.6% (08/2022) - Baseline PEC labs: elevated 24h urine protein at 400, otherwise wnl Assessment/Plan: 27 y.o. s/p RLTCS 02/07 Starvation ketosis, resolved - VSS, afebrile - Reports N/V/fatigue x3days>currently dose not have an appetite - Possible gastroparesis, has been prescribed Reglan - Labs significant for leukocytosis, AGMA, proteinuria upon admission - AG closed since 01/30 AM - Leukocytosis resolved - Some electrolyte abnormalities, being replenished as appropriate (hypokalemia, hypophosphatemia)>improved. - Glucose range as above - Covid, Influenza, RSV negative - LDH 240, LA wnl, blood cultures: preliminary read negative - UA noninfectious, 2+ ketones - Prelim blood cultures without growth - Patient transitioned from insulin gtt>subQ insulin 10 PM Post op - bandage to be removed 24-48 hrs post CS - SCDs, Lovenox - Ambulate - Mendoza to be removed per protocol 3. T1DM - A1c 5.6% (08/2022) - 24hr TUP 407 baseline per MFM - Humalog pump + Dexcom CGM, see above for most recent settings, adjusted 01/20/23 - Patient does not have insulin pump supplies, will continue subQ insulin with the following regimen -PP: Lantus 02/09, Humalog -/08/04 for 02/07, will adjust as appropriate - pt plans to go back to insulin pump eventually pending insurance - F/Pre/Post/qhs/0200; or if patient experiences symptoms of hypoglycemia - ADAT, general diet 4. Hx CS - Indication: complete and pushing with intolerance - Planning RCS @ 37 wks; scheduled - Hgb 9.4 (02/05) - s/p venofer infusion 02/01 5. Hx RPL 6. Pre-e w/o SF - The range of BP in the last 24 hours is: BP: (106-127)/(53-79) - asymptomatic currently - acute: none; maintenance: none - Labs wnl 02/05, p/c 1.99 (collected in the setting of starvation acidosis) - Continue to monitor BPs Plan: monitor BP and BG. Insulin plan as above. Routine post operative cares Anita Dawson M.D. PGY3 MFM Attending Addendum The above house staff note was reviewed and the clinical course, assessment and plan discussed. Insulin doses were discussed. For now we will continue intermittent subcutaneous insulin injections with long-acting and short acting. Patient would eventually like to get back on her insulin pump but this is pending insurance issues. I Interviewed and examined the pt separately as appropriate. Plan of care discussed with patient. Questions addressed. On the day of the visit, I spent 20 minutes providing care to this patient including Obtaining and/or reviewing separately obtained history, Performing a medically appropriate examination and/or evaluation, Counseling and educating the patient/family/caregiver, Ordering medications, tests or procedures, and Documenting clinical information in the medical record. Pato Castorena M.D. Maternal- Medicine * Mayank Kaba RN - 02/07/2023 8:23 AM CDT Anesthesia notified of pt padmaja of 20. Okay to transfer from Labor and PACU to room 6167. Patient rolled side to side, pericare and mendoza care completed. New pad, underwear, and gown applied. Patient tolerated well. Prepared for transport. Transferred to room 61 via bed. Report given to MARY Mcgrath. VS WDL and fundus firm at U with small to moderate bleeding. Upon transfer to room 6167, blood noted on incision dressing. slider assembler to notify resident. * Kelli Flores MD - 02/07/2023 4:01 AM CDT Safety Rounds round note 4:01 AM 15 minutes of FHT and plan of care reviewed with in-house attending and L&D charge nurse. NST reactive, no recent deceleration Action: continue plan of care Kelli Flores MD * Jeana Gonzalez RN - 02/06/2023 11:01 PM CDT PGY 3 Dr. Salazar approved pt to be off monitor for a shower. * Laura Salazar MD - 02/06/2023 8:54 PM CDT Non-Stress Test Indication: Starvation ketosis Gestational Age: 35w4d Baseline: 150 bpm Variability: moderate Accelerations: present Decelerations: 2 prolonged decelerations during last 1 hour of monitoring TOCO: CTXs q 2-5 minutes Interpretation: reactive cEFM overnight given contractions and decelerations. Aura Flores MD PATRON ATTENDANT Resident, PGY-4 Pager #: [phone] Discussed prolonged decels with Dr. Castorena. Recommend proceeding with RCS at this time. Patient recently ate dinner so will plan for 0500. Discussed with Dr. Casillas. Discussed with patient who is agreeable. Laura Salazar MD PGY3 OBGYN [phone] * Jeana Gonzalez RN - 02/06/2023 8:13 PM CDT RN called PGY 3 to make aware that pt would like to speak to In house physician regarding POC. RN made PGY3 aware of late deceleration x1. * Jeana Gonzalez RN - 02/06/2023 7:45 PM CDT PGY [address] Dr. Salazar called nurses station to update on POC. Orders received that pt may eat dinner. * Rosa Kovacs RN - 02/06/2023 4:55 PM CDT Pgy3 made aware of hypoglycemic episode. Verbal orders received for D5 LR at 50ml/hr. * Rosa Kovacs RN - 02/06/2023 1:25 PM CDT R3 notified Patient patient verbalize no relief of contractions with 250 ml LR bolus. Will continueEFM. * Laura Salazar MD - 02/06/2023 12:10 PM CDT Brief Resident Note Patient continues to complain of contractions 10/10 Reports no change since this AM. Appears comfortable. SVE: 60/-3, unchanged from prior Will administer small bolus and continue monitoring. If reassuring, can take off monitor and continue NST BID. Laura Salazar MD PGY3 OBGYN [phone]: patient continuing to report contractions, now 12/10. Patient now tachycardic to 110s-120s. Vitals: 02/06/23 1404 BP: 124/75 Pulse: Resp: Temp: SpO2: SVE: 60/-3 FHT: 140, mod variability, accels, intermittent variable decels [place]: q2-8mins, irregular Discussed with Dr. Casillas. Continue monitoring. Patient made NPO. * Rosa Kovacs RN - 02/06/2023 11:13 AM CDT RN paged PGY3, patient still chepe, no change from previous assessment. * Kelli Flores MD - 02/06/2023 9:50 AM CDT Non-Stress Test Indication: Starvation ketosis Gestational Age: 35w4d Baseline: 135 bpm Variability: moderate Accelerations: present Decelerations: Absent TOCO: CTXs q 3-5 minutes, patient reporting worsening Interpretation: reactive Dr. Holloway to evaluate contractions. Aura Flores MD PATRON ATTENDANT Resident, PGY-4 Pager #: [phone] * Lan Montelongo MD - 02/06/2023 9:17 AM CDT Images from the original note were not included. High Risk Rounding Note Primary OB: Under the care of OB Hospitalist Problem List: Starvation ketosis Anion Gap Metabolic Acidosis T1DM H/o CS H/o RPL IUP at 35w4d Subjective: Patient states no Contractions this AM. Denies LOF or VB. +FM. Objective: Vitals: 02/05/23 1607 02/05/23 2150 02/06/23 0734 02/06/23 0735 BP: 116/64 117/71 Pulse: Resp: 18 Temp: 98 ??F (36.7 ??C) 98.1 ??F (36.7 ??C) 97.6 ??F (36.4 ??C) TempSrc: Oral Oral Oral SpO2: 100% Weight: Height: General: Well-developed, well-nourished female HEENT: NCAT, moist mucus membranes Heart: acyanotic Lungs: non labored breathing Abdomen: Gravid, NT Extremities: No clubbing, cyanosis, or edema. No calf tenderness. SVE per Dr. Jenkins (02/04): 1.5/90/-2 Status: Please refer to NST notes; NST BID - Reactive overnight BSUS 01/29/23: vertex, CLARA 9.20cm, MVP 3.33cm PNC US 01/25: ceph, CLARA 17.4cm, MVP 8.3cm, NST reactive PNC US 01/21: ceph, EFW 2585g (89%), AC 98%, anterior placenta, MVP 6.2cm, CLARA 16.2cm Labs: Recent Labs 02/05/23 0109 02/05/23 0110 WBC -- 9.1 HGB -- 9.4* HCT -- 30.3* PLT -- 266 NA 138 -- K 4.3 -- CL 101 -- CO2 30* -- BUN 4* -- CREAT 0.54 -- GLUCOSE 68* -- ALT 12 -- AST 23 -- P/c ratio 1.99 (01/29) Diabetes Checklist - Diagnosed at 13 years old - Managed outside by Dr. Sanches - Pre- regimen T slim and dexcom automode - Last DKA Fall 2021 - Hypoglycemic awareness at 60s - Last dilated eye exam: >5 years ago - Last EKG: unknown, ordered 08/2022 - Evidence of end organ damage: none - TSH: ordered - Hgb A1c: 5.6% (08/2022) - Baseline PEC labs: elevated 24h urine protein at 400, otherwise wnl Assessment/Plan: 27 y.o. @ 35w4d with the following: Starvation ketosis - VSS, afebrile - Reports N/V/fatigue x3days>currently dose not have an appetite - Possible gastroparesis, has been prescribed Reglan - Labs significant for leukocytosis, AGMA, proteinuria upon admission - AG closed since 01/30 AM - Leukocytosis resolved - Some electrolyte abnormalities, being replenished as appropriate (hypokalemia, hypophosphatemia)>improved. - Glucose range as above - Covid, Influenza, RSV negative - LDH 240, LA wnl, blood cultures: preliminary read negative - UA noninfectious, 2+ ketones - Prelim blood cultures without growth - Patient transitioned from insulin gtt>subQ insulin 01/31 PM - BG goal for 70-140 - Plan: - Replete electrolytes as needed - Encourage PO intake, scheduled antiemetics - d/c Ensure with meals status: - NST BID, was on cEFM overnight due to spontaneous decel>discontinued this AM as moderate variability, + accels, no decels, no contractions tracing - BSUS 01/29/23: vertex, CLARA 9.20cm, MVP 3.33cm - PNC US 01/25: ceph, CLARA 17.4cm, MVP 8.3cm, NST reactive - PNC US 01/21: ceph, EFW 2585g (89%), AC 98%, anterior placenta, MVP 6.2cm, CLARA 16.2cm 3. T1DM - A1c 5.6% (08/2022) - 24hr TUP 407 baseline per MFM - Humalog pump + Dexcom CGM, see above for most recent settings, adjusted 01/20/23 - Patient does not have insulin pump supplies, will continue subQ insulin with the following regimen - Lantus 12/08 (decreased this AM) - ICR 1:5 MN-1600, 1:7 1600-MN - pre-prandial correction 1:30>120 - F/Pre/Post/qhs/0200; or if patient experiences symptoms of hypoglycemia - d/c Ensure shakes - Transitioned to general diet from diabetic diet for increased meal options 4. Hx CS - Indication: complete and pushing with intolerance - Planning RCS @ 37 wks; scheduled - Hgb 9.4 (02/05) - s/p venofer infusion 02/01, repeat in 1 wk: 02/08 (has been ordered) 5. Hx RPL 6. Pre-e w/o SF - The range of BP in the last 24 hours is: BP: (116-122)/(64-78) - asymptomatic currently - acute: none; maintenance: none - Labs wnl 02/05, p/c 1.99 (collected in the setting of starvation acidosis) - Continue to monitor BPs 7. labs - GBS negative 02/01 - Blood type: Opos - Rubella immune, HIV neg, HBV neg, RPR neg - Ordering repeat RPR today - Tdap: 02/04 - Flu shot: ordered Plan: Seen and discussed with Dr. Castorena. Will continue with the plan as outlined above. Inpatient until delivery. Lan Montelongo MD, PGY-2 Obstetrics and Gynecology Pager: * Pato Castorena MD - 02/06/2023 9:09 AM CDT Maternal- medicine note. Patient was in good spirits. She has no complaints this morning. Denies contractions. Reports good movement. No symptoms consistent with severe features of preeclampsia. Blood pressures and other vital signs remain normal this morning. Exam unremarkable Blood glucose reviewed. She had slightly elevated blood glucose after breakfast and lunch. Did receive 1 dose of insulin to cover her post breakfast yesterday. Most recent labs were yesterday morning. Hemoglobin is 9.4 which does represent an increase after receiving Venofer. Platelets, creatinine and LFTs all normal and stable NST yesterday were reactive. Last ultrasound for growth and center was performed on and demonstrated borderline LGA growth with normal amniotic fluid volume. Patient is stable at 35 weeks 4 days gestation. No evidence of progressing preeclampsia. No indication for delivery at this time due to preeclampsia. Diabetes adequately controlled. Will increase herinsulin to carb ratio from midnight to 4 PM to 1: 5. Reassuring assessment. Patient has a repeat section scheduled on February 16. Due to multiple maternal core morbidities including superimposed preeclampsia with high risk for rapid decompensation, plan to keep patient in the hospital until delivery. Plan of care was discussed with patient and questions were addressed On the day of the visit, I spent 20 minutes providing care to this patient including Obtaining and/or reviewing separately obtained history, Performing a medically appropriate examination and/or evaluation, Counseling and educating the patient/family/caregiver, Ordering medications, tests or procedures, and Documenting clinical information in the medical record. Pato Castorena MD * Kindra Baldwin RN - 02/06/2023 6:00 AM CDT This RN received report from Obdulia Rose at this time. * Frank Morley MD - 02/05/2023 9:17 PM CDT Non-Stress Test Indication: DKA/IDDM Gestational Age: 35w3d Baseline: 150 bpm Variability: moderate Accelerations: present Decelerations: Variable: mild, none in last half of NST TOCO: CTXs rare Interpretation: reactive Recommendation(s): Continue BID NST, as variables were brief, sharp, small, and not persistent Comments: * Obdulia Esposito RN - 02/05/2023 8:41 PM CDT Pt requested to use bathroom, taken off EFM at 2036. RN noted FHT at cat 1, no ctx noted since 1932. Pt states she is feeling better . * Lashell Shaw RN - 02/05/2023 4:45 PM CDT Pt c/o contraction, abd pain, blurred vision, requests to be on EFM. EFM applied, Dr Hobson notified, will observe. * Lashell Shaw RN - 02/05/2023 1:[address] Hobson notified of blood sugar 157, no further order at this tilme * Zhanna Willoughby RD - 02/05/2023 11:52 AM CDT Images from the original note were not included. CLINICAL DIETITIAN PROGRESS NOTE [facility] Follow Up Nutrition Assessment Patient reports her appetite has been improving. She enjoys chocolate ensure. Denies any questions about carb counts for her meals/snacks Assessment: Recent Labs 02/05/23 0109 GLUCOSE 68* BUN 4* CREAT 0.54 GFR >60 NA 138 K 4.3 CL 101 CO2 30* ANIONGAP 7* CA 8.8 ALBUMIN 3.2* ALKPHOS 104 ALT 12 AST 23 Skin: See Flowsheet for more wound documentation Teodoro Score: 23 (02/04/232055) Anthropometrics: Height: 5' 2 (157.5 cm) (01/29/23 1640) Weight: 74.4 kg (164 lb) (01/29/23 1640) Body mass index is 30 kg/m??. Last Bowel Movement (mm/dd/yyyy): (ASSOCIATE DIRECTOR FINANCE) (01/31/23 0400) Nutrition Prescription: DIET SUPPLEMENT GEN ADULT TID; Complete Oral Supplement, DIET GENERAL Effective Now Food/Meal: Dinner (02/04/232055) I:Nutrition Intervention: DIET SUPPLEMENT GEN ADULT TID; Complete Oral Supplement, DIET GENERAL Effective Now Goal: Consume 75% of meals/ supplements Time spent: 15 minutes M/E: 1. Continue to monitor: Anthropometrics, Digestive, Skin, and Biochemical data 2. Follow up every 4-7 days and as needed. * Pato Castorena MD - 02/05/2023 10:00 AM CDT Non-Stress Test Indication: T1DM Gestational Age: 35w3d Baseline: 140 bpm Variability: moderate Accelerations: present Decelerations: Absent TOCO: CTXs occasional Interpretation: reactive Lorenzo Harrison, PATRON ATTENDANT PGY-4 Pager: [phone] Agree with assessment Pato Castorena MD * Pato Castorena MD - 02/05/2023 9:55 AM CDT Images from the original note were not included. High Risk Rounding Note Primary OB: Under the care of OB Hospitalist Problem List: Starvation ketosis Anion Gap Metabolic Acidosis T1DM H/o CS H/o RPL IUP at 35w3d Subjective: Patient states nContractions improved overnight. Denies LOF or VB. +FM. Patient concerned about location of delivery due to insurance coverage. Objective: Vitals: 02/04/23 2211 02/04/23 2212 02/05/23 0331 02/05/23 0830 BP: 127/77 121/68 119/77 Pulse: Resp: 18 16 17 Temp: 98.7 ??F (37.1 ??C) 98.2 ??F (36.8 ??C) TempSrc: Oral SpO2: 100% 99% Weight: Height: General: Well-developed, well-nourished female HEENT: NCAT, moist mucus membranes Heart: acyanotic Lungs: non labored breathing Abdomen: Gravid, NT Extremities: No clubbing, cyanosis, or edema. No calf tenderness. SVE per Dr. Jenkins (02/04): 1.5/90/-2 Status: Please refer to NST notes; NST BID - Reactive overnight BSUS 01/29/23: vertex, CLARA 9.20cm, MVP 3.33cm PNC US 01/25: ceph, CLARA 17.4cm, MVP 8.3cm, NST reactive PNC US 01/21: ceph, EFW 2585g (89%), AC 98%, anterior placenta, MVP 6.2cm, CLARA 16.2cm Labs: Recent Labs 02/05/23 0109 02/05/23 0110 WBC -- 9.1 HGB -- 9.4* HCT -- 30.3* PLT -- 266 NA 138 -- K 4.3 -- CL 101 -- CO2 30* -- BUN 4* -- CREAT 0.54 -- GLUCOSE 68* -- ALT 12 -- AST 23 -- P/c ratio 1.99 (01/29) Diabetes Checklist - Diagnosed at 13 years old - Managed outside by Dr. Sanches - Pre- regimen T slim and dexcom automode - Last DKA Fall 2021 - Hypoglycemic awareness at 60s - Last dilated eye exam: >5 years ago - Last EKG: unknown, ordered 08/2022 - Evidence of end organ damage: none - TSH: ordered - Hgb A1c: 5.6% (08/2022) - Baseline PEC labs: elevated 24h urine protein at 400, otherwise wnl Assessment/Plan: 27 y.o. @ 35w3d with the following: Starvation ketosis - VSS, afebrile - Reports N/V/fatigue x3days>currently dose not have an appetite - Possible gastroparesis, has been prescribed Reglan - Labs significant for leukocytosis, AGMA, proteinuria upon admission - AG closed since 01/30 AM - Leukocytosis resolved - Some electrolyte abnormalities, being replenished as appropriate (hypokalemia, hypophosphatemia)>improved. - Glucose range as above - Covid, Influenza, RSV negative - LDH 240, LA wnl, blood cultures: preliminary read negative - UA noninfectious, 2+ ketones - Prelim blood cultures without growth - Patient transitioned from insulin gtt>subQ insulin 10/ PM - BG goal for 70-140 - Plan: - Replete electrolytes as needed - Encourage PO intake, scheduled antiemetics status: - NST BID, was on cEFM overnight due to spontaneous decel>discontinued this AM as moderate variability, + accels, no decels, no contractions tracing - BSUS 01/29/23: vertex, CLARA 9.20cm, MVP 3.33cm - PNC US 01/25: ceph, CLARA 17.4cm, MVP 8.3cm, NST reactive - PNC US 01/21: ceph, EFW 2585g (89%), AC 98%, anterior placenta, MVP 6.2cm, CLARA 16.2cm 3. T1DM - A1c 5.6% (08/2022) - 24hr TUP 407 baseline per MFM - Humalog pump + Dexcom CGM, see above for most recent settings, adjusted 01/20/23 - Patient does not have insulin pump supplies, will continue subQ insulin with the following regimen - Lantus 12/08 (decreased this AM) - ICR 1:6 MN-1600, 1:7 1600-MN - pre-prandial correction 1:30>120 - F/Pre/Post/qhs/0200; or if patient experiences symptoms of hypoglycemia - Ensure shakes ordered for nutritional supplementation with meals - Transitioned to general diet from diabetic diet for increased meal options 4. Hx CS - Indication: complete and pushing with intolerance - Planning RCS @ 37 wks - Hgb 9.4 (02/05) - s/p venofer infusion 02/01, repeat in 1 wk: 02/08 (has been ordered) 5. Hx RPL 6. gHTN v. Pre-e w/o SF - The range of BP in the last 24 hours is: BP: (119-128)/(68-77) - asymptomatic currently - acute: none; maintenance: none - Labs wnl 02/05, p/c 1.99 (collected in the setting of starvation acidosis) - Continue to monitor BPs 7. labs - GBS negative 02/01 - Blood type: Opos - Rubella immune, HIV neg, HBV neg, RPR neg - Ordering repeat RPR today - Tdap: 02/04 - Flu shot: ordered Plan: Seen and discussed with Dr. Castorena. Will continue with the plan as outlined above. Willfollow-up with Hospitalist regarding delivery. Plan for C/S @ 37 wks (02/16) at 1500. This has beenscheduled. Cheli Hobson MD PATRON ATTENDANT Resident, PGY-3 MFM Attending Addendum The above house staff note was reviewed and the clinical course, assessment and plan discussed. I Interviewed and examined the pt separately as appropriate. Blood pressure stable. No evidence of progression of preeclampsia at this time. Blood glucose well controlled on intermittent subcutaneous insulin injections. heart rate tracing reassuring this morning. There was 1 deceleration last night so patient had continuous monitoring throughout the night. No recurrence of the deceleration. Reactive tracing today. Given patient's high likelihood of problems and uncertain follow-up as outpatient, decision has been made to can continue hospitalization until planned delivery at 37 weeks gestation. Patient will bedelivered by the hospitalist. Will be a repeat . I discussed with hospitalist today and they are going to schedule the at 37 weeks gestation. On the day of the visit, I spent 30 minutes providing care to this patient including Obtaining and/or reviewing separately obtained history, Performing a medically appropriate examination and/or evaluation, Counseling and educating the patient/family/caregiver, Ordering medications, tests or procedures, Documenting clinical information in the medical record, and Referring and communication with other health manager urgent care (not separately reported). Pato Castorena M.D. Maternal- Medicine * Lashell Shaw RN - 02/05/2023 9:[address] Castorena in to see pt, POC discussed. EFM off per Dr Hobson. * Leslie Rust MD - 02/05/2023 3:13 AM CDT Safety Rounds round note 3:13 AM 15 minutes of FHT and plan of care reviewed with in-house resident, and L&D charge nurse. NST reactive Action: continue plan of care Leslie Rust MD * Anita Steele MD - 02/04/2023 11:56 PM CDT Non-Stress Test Indication: T1DM Gestational Age: 35w2d Baseline: 140 bpm Variability: moderate Accelerations: present Decelerations: Small occasional variable TOCO: CTXs no Interpretation: reactive, reassuring for EGA cEFM overnight due to decelerations earlier today Anita Steele MD PATRON ATTENDANT Resident, PGY-3 Pager #: [phone] Pager: [phone] * Cammie Macario MD - 02/04/2023 10:49 PM CDT Was updated that this patient has having shortness of breath. She also complains of being lightheaded and feels like room is spinning around her. She reports eating her full meals today. She has known anemia. Reports feeling some contractions. Denies leaking of fluid or vaginal bleeding. Denies chest pain, right upper quadrant pain, changes to vision. BP 127/77, SpO2 100%, HR 93, Temp 98.7 General: in no acute distress Heart: RRR Lungs: CTAB Ordered STAT CBC, EKG, chest xray. Continue to monitor and follow up PRN. Cammie Macario MD Obstetrics & Gynecology Resident, PGY-2 Pager #: * Isaura Daley RN - 02/04/2023 10:44 PM CDT Renaldo PGY2 at bedside to evaluate pt. * Isaura Daley RN - 02/04/2023 10:26 PM CDT PGY2 called and updated about pt conditon. PGY2 to bedside to evaluate. * Isaura Daley RN - 02/04/2023 10:14 PM CDT RN at bedside. Pt states feeling lightheaded and SOB when lying down. VS attained. BP, pulse, and O2 WDL. BG 110. PGY2 paged. * Charisma Jenkins MD - 02/04/2023 6:18 PM CDT Pt seen for contractions.Reports vaginal pressure. Cervix examined 1.5/90/-2, posterior FHT 150-160pbm, mod mau and reactive. Spontaneous deceleration earlier today. Overall reactive and reassuring. No changes in management at this time.We discussed that if she labors, if her glucoses are uncontrolled or if the fetus is nonreassuring then delivery will be undertaken. Charisma Jenkins MD * Pinky Minaya RN - 02/04/2023 6:[address] Jenkins at bedside to discuss POC. SVE unchanged. Will keep pt on continuous monitoring. Pt tocall for nurse if pain worsens or status changes. Pt approved to eat dinner. * Pinky Minaya RN - 02/04/2023 4:45 PM CDT PGY-2 paged to update on pt status and further orders. Waiting for callback. * Pinky Minaya RN - 02/04/2023 4:03 PM CDT RN at bedside. Pt states wanting to try IVF at this time. See MAR for details. * Pinky Minaya RN - 02/04/2023 3:44 PM CDT RN at bedside. Pt states feeling light headed. VS attained. BP WDL, tachycardic. BG 176. Pt rates pain 7/10 on pain scale. Declining pain medication at this time. Dr. Jenkins at nurses station and updated on pt status. Orders received for IVF bolus. Pt assisted up to bathroom and able to void. Pt states feeling slightly better. IVF offered to pt. Pt declined IVF at this time. * Pinky Minaya RN - 02/04/2023 2:04 PM CDT Spontaneous decel noted on FHR tracing. Dr. Jenkins called and aware. Will keep pt on monitor for further monitoring. * Pinky Minaya RN - 02/04/2023 1:[address] Jenkins called and aware of pt BG 249. Pt asymptomatic at this time. See MAR for details for insulin administration. * Charisma Jenkins MD - 02/04/2023 1:50 PM CDT Called to room for contractions. Pt is comfortable resting in bed. Cervix 1.5/60/-2. Pt reports contracts not as bad as a few days ago. IVF offered and declined. NST shows contractions and reassuringfetus. We reviewed that tocolysis is not offered at this gestational age and if she labors then a repeat CD will be completed. No changes to management at this time. Charisma Jenkins MD * Pinky Minaya RN - 02/04/2023 1:[address] Jenkins at bedside. SVE 1.5/60/-2. Chepe Q2 minutes. Orders received to keep patient on monitor. Pt to let RN know if contractions get more intense or painful. Pt approved to eat lunch. Will update MD as needed. * Pinky Minaya RN - 02/04/2023 1:25 PM CDT Pt called out to nurses station c/o feeling contractions. EFM and TOCO placed on pt. Pt contractingQ2 minutes. Pt rating pain 5/10 on pain scale. FHR currently category 1. Dr. Jenkins called and updated. To see pt for evaluation when able. * Cheli Hobson MD - 02/04/2023 11:38 AM CDT Brief Resident Note: Patient not on NST. RN to place on monitor. Cheli Hobson MD PATRON ATTENDANT Resident, PGY-3 * Charisma Jenkins MD - 02/04/2023 8:31 AM CDT Images from the original note were not included. High Risk Rounding Note Primary OB: Under the care of OB Hospitalist Problem List: Starvation ketosis Anion Gap Metabolic Acidosis T1DM H/o CS H/o RPL IUP at 35w2d Subjective: Patient states that her nausea has improved, was able to eating all her meals yesterday. Contractions improved overnight. Denies LOF or VB. +FM. Patient concerned about location of delivery due to insurance coverage. Objective: Vitals: 02/03/23 0018 02/03/23 0315 02/03/23 0755 02/03/23 1552 BP: 127/76 (!) 128/92 117/70 Pulse: Resp: 16 18 Temp: 98.3 ??F (36.8 ??C) 97.9 ??F (36.6 ??C) 97.8 ??F (36.6 ??C) TempSrc: Oral Oral Oral SpO2: Weight: Height: General: Well-developed, well-nourished female HEENT: NCAT, moist mucus membranes Heart: acyanotic Lungs: non labored breathing Abdomen: Gravid, NT Extremities: No clubbing, cyanosis, or edema. No calf tenderness. SVE per Dr. Macario (02/02 PM): / Status: Please refer to NST notes; NST BID - Reactive overnight BSUS 01/29/23: vertex, CLARA 9.20cm, MVP 3.33cm PNC US 01/25: ceph, CLARA 17.4cm, MVP 8.3cm, NST reactive PNC US 01/21: ceph, EFW 2585g (89%), AC 98%, anterior placenta, MVP 6.2cm, CLARA 16.2cm Labs: Recent Labs 02/01/23 0839 02/01/23 2130 02/02/23 0455 02/02/23 0909 WBC 6.1 -- 5.5 -- HGB 9.4* -- 8.3* -- HCT 30.7* -- 25.9* -- PLT 261 -- 213 -- NA 137 140 -- 136 K 3.9 3.8 -- 3.6 CL 107 109* -- 104 CO2 19* 23 -- 24 BUN 3* 4* -- 3* CREAT 0.53 0.51 -- 0.50* GLUCOSE 174* 79 -- 76 P/c ratio 1.99 (9/29) Diabetes Checklist - Diagnosed at 13 years old - Managed outside by Dr. Sanches - Pre- regimen T slim and dexcom automode - Last DKA Fall 2021 - Hypoglycemic awareness at 60s - Last dilated eye exam: >5 years ago - Last EKG: unknown, ordered 08/2022 - Evidence of end organ damage: none - TSH: ordered - Hgb A1c: 5.6% (08/2022) - Baseline PEC labs: elevated 24h urine protein at 400, otherwise wnl Assessment/Plan: 27 y.o. @ 35w2d with the following: Starvation ketosis - VSS, afebrile - Reports N/V/fatigue x3days>currently dose not have an appetite - Possible gastroparesis, has been prescribed Reglan - Labs significant for leukocytosis, AGMA, proteinuria upon admission - AG closed since 01/30 AM - Leukocytosis resolved - Some electrolyte abnormalities, being replenished as appropriate (hypokalemia, hypophosphatemia)>improved. - Glucose 110s-200 over past 24 hours - Covid, Influenza, RSV negative - LDH 240, LA wnl, blood cultures: preliminary read negative - UA noninfectious, 2+ ketones - Prelim blood cultures without growth - Patient transitioned from insulin gtt>subQ insulin 01/31 PM - BG goal for 70-140 - Plan: - Replete electrolytes as needed - Encourage PO intake, scheduled antiemetics status: - NST BID - BSUS 01/29/23: vertex, CLARA 9.20cm, MVP 3.33cm - PN US 01/25: ceph, CLARA 17.4cm, MVP 8.3cm, NST reactive - PN US 01/21: ceph, EFW 2585g (89%), AC 98%, anterior placenta, MVP 6.2cm, CLARA 16.2cm 3. T1DM - A1c 5.6% (08/2022) - 24hr TUP 407 baseline per MFM - Humalog pump + Dexcom CGM, see above for most recent settings, adjusted 01/20/23 - Patient does not have insulin pump supplies, will continue subQ insulin with the following regimen - Lantus 12/08 (decreased this AM) - ICR 1:6 MN-1600, 1:7 1600-MN - pre-prandial correction 1:30>120 - F/Pre/Post/qhs/0200; or if patient experiences symptoms of hypoglycemia - Ensure shakes ordered for nutritional supplementation with meals - Transitioned to general diet from diabetic diet for increased meal options - Patient declining heparin at this time 4. Hx CS - Indication: complete and pushing with intolerance - Planning RCS - Hgb 9.4 > 8.3 - s/p venofer infusion 02/01, will repeat when able inpatient if patient is still admitted at that time 5. Hx RPL 6. Elevated blood pressure - Reports nausea, vomiting, fatigue - The range of BP in the last 24 hours is: BP: (117)/(70) - Patient denies history of elevated blood pressure - Labs as above, proteinuria 7. labs - GBS negative 02/01 - Blood type: Opos - Rubella immune, HIV neg, HBV neg, RPR neg - Ordering repeat RPR today - Tdap and Flu shot today Plan: Seen and discussed with Dr. Jenkins. Will continue with the plan as outlined above. Will also follow-up with SW about insurance coverage and delivery planning. Fidel Perez MD PATRON ATTENDANT PGY-2 Resident MFM Attending Attestation: I have seen, examined and counseled the patient with the resident and agree with the assessment andplan. Chey is a @ 35w2d who is admitted for starvation ketosis, now resolved and T1DM. Was feeling well this AM when originally seen- then having ctx this afternoon. BP 119/70 Pulse 92 Temp 97.4 ??F (36.3 ??C) (Oral) Resp 18 Ht 5' 2 (1.575 m) Wt 74.4 kg (164 lb) SpO2 99% No BMI 30.00 kg/m?? NAD Normocephalic, PERRL T1DM, uncontrolled. Hypoglycemia again overnight. I:C adjusted today. Cont to adjust insulin as indicated. Continue inpt management of T1DM given late gestation and labile glucoses. Charisma Jenkins MD Maternal Medicine [facility], [place], [place] * Charisma Jenkins MD - 02/03/2023 11:24 PM CDT Non-Stress Test Indication: Type I DM, starvation ketosis Gestational Age: 35w1d Baseline: 150 bpm Variability: moderate Accelerations: present Decelerations: Variable decels TOCO: CTXs rare Interpretation: reactive, variable decels > improved after extended monitoring Anita Steele MD PATRON ATTENDANT Resident, PGY-3 Pager #: [phone] R3 Pager: [phone] Agree with documentation. Pt had deceleration around 1635, then reactive following this time. Had variable around 2100. Overall monitor is reactive and reassuring. Cont monitoring as scheduled. Charisma Jenkins MD [facility] * Fidel Hall RN - 02/03/2023 9:42 PM CDT [facility] Tdap Screening Form INDICATIONS FOR Tdap VACCINE [x] Patients 11-64 years or older CONTRADICTIONS YES NO [] [x] Have you received the Tdap? *If you are unsure, it is recommended that you are vaccinated unless otherwise contradicted. [] [x] Do you have a history of allergic reaction after receiving DTP, DTaP, DT, Td vaccine? [] [x] Have you had sever pain or swelling or long seizure or coma after previous dose of any vaccine having components of Tetanus, Diphtheria or Pertussis? If the answer to any of the above questions is ???yes?? , the patient has potential CONTRADICTIONS for vaccination with the Tdap at this time. Place this form on the front of the chart for physician to review. PRECAUTIONS YES NO [] [x] Have you ever had a severe allergic reaction to latex? (Only a precaution when administeringthe BOOSTRIX Tdap vaccine not Adacel) [] [x] Have you received the Tetanus (Td) Vaccine within the past 2 years? [] [x] Do you have a history of epilepsy or other nervous system disorder? [] [x] Do you have a history of Guillian-Jal??? syndrome? [] [x] Have you had nausea, vomiting, diarrhea, fever or severe headache today? If the answer to any of the above questions is yes , the patient may not be a candidate for the vaccination with Tdap at this time. Notify the physician for direction on whether to administer or hold the vaccine. PATIENTS RIGHTS [x] Patient wishes to receive Tdap vaccine-Provide educational materials [] Patient refuses to receive Tdap vaccine-STOP ASSESSMENT and place this form in the Progress Notes section Signature of RN completing the assessment and the time assessment completed Date/Time:__02/03/2023___ RN Signature: Fidel Hall RN * Pinky Minaya RN - 02/03/2023 4:37 PM CDT IV team at bedside for IV placement. Deceleration noted on tracing. Dr. Quinones PGY-2 at nurses station and aware. Orders received to keep on the monitor an hour after deceleration. * Fidel Perez MD - 02/03/2023 3:46 PM CDT Non-Stress Test Indication: Type I DM Gestational Age: 35w1d Baseline: 135 bpm Variability: moderate Accelerations: present Decelerations: Absent TOCO: CTXs no Interpretation: reactive, reassuring for EGA, non-contiguous tracing Interpreted from 0600 to 0735 Fidel Perez MD PATRON ATTENDANT PGY-2 Resident * Pinky Minaya RN - 02/03/2023 1:[address] Hobson PGY-3 at nurses station and updated on pt repeat BS of 193. Orders received for 3 additional units of insulin lispro. * Pinky Minaya RN - 02/03/2023 12:[address] Hobson PGY-3 paged and updated on pt status.Breakfast postprandial 177. No orders received. PGY-3 also updated on pt c/o diarrhea. Orders received for immodium. * Pinky Minaya RN - 02/03/2023 10:51 AM CDT IV team called and aware of pt need for access. Will come to bedside when able. * Charisma Jenkins MD - 02/03/2023 9:08 AM CDT Images from the original note were not included. High Risk Rounding Note Primary OB: Under the care of OB Hospitalist Problem List: Starvation ketosis Anion Gap Metabolic Acidosis T1DM H/o CS H/o RPL IUP at 35w1d Subjective: Patient had contractions overnight, states that they are improved but still present. Also states that she has had diarrhea this morning. Does not have an appetite, feeling nauseated at this time. Objective: Vitals: 02/02/23201302/03/23 0018 02/03/23 0315 02/03/23 0755 BP: 127/76 (!) 128/92 Pulse: Resp: 16 Temp: 97.6 ??F (36.4 ??C) 98.3 ??F (36.8 ??C) 97.9 ??F (36.6 ??C) 97.8 ??F (36.6 ??C) TempSrc: Oral Oral Oral Oral SpO2: Weight: Height: General: Well-developed, well-nourished female HEENT: NCAT, moist mucus membranes Heart: acyanotic Lungs: non labored breathing Abdomen: Gravid, NT Extremities: No clubbing, cyanosis, or edema. No calf tenderness. SVE overnight per Dr. Macario: /-2 Status: Please refer to NST notes; NST BID - Reactive overnight BSUS 01/29/23: vertex, CLARA 9.20cm, MVP 3.33cm PNC US 01/25: ceph, CLARA 17.4cm, MVP 8.3cm, NST reactive PNC US 01/21: ceph, EFW 2585g (89%), AC 98%, anterior placenta, MVP 6.2cm, CLARA 16.2cm Labs: Recent Labs 01/31/23212202/01/23 0839 02/01/23 2130 02/02/23 0455 02/02/23 0909 WBC -- 6.1 -- 5.5 -- HGB -- 9.4* -- 8.3* -- HCT -- 30.7* -- 25.9* -- PLT -- 261 -- 213 -- NA 138 137 140 -- 136 K 3.4* 3.9 3.8 -- 3.6 CL 109* 107 109* -- 104 CO2 19* 19* 23 -- 24 BUN 3* 3* 4* -- 3* CREAT 0.52 0.53 0.51 -- 0.50* GLUCOSE 159* 174* 79 -- 76 P/c ratio 1.99 (01/29) Diabetes Checklist - Diagnosed at 13 years old - Managed outside by Dr. Sanches - Pre- regimen T slim and dexcom automode - Last DKA Fall 2021 - Hypoglycemic awareness at 60s - Last dilated eye exam: >5 years ago - Last EKG: unknown, ordered 08/2022 - Evidence of end organ damage: none - TSH: ordered - Hgb A1c: 5.6% (08/2022) - Baseline PEC labs: elevated 24h urine protein at 400, otherwise wnl Assessment/Plan: 27 y.o. @ 35w1d with the following: Starvation ketosis - VSS, afebrile - Reports N/V/fatigue x3days>currently dose not have an appetite - Possible gastroparesis, has been prescribed Reglan - Labs significant for leukocytosis, AGMA, proteinuria upon admission - AG closed since 01/30 AM - Leukocytosis resolved - Some electrolyte abnormalities, being replenished as appropriate (hypokalemia, hypophosphatemia)>improved. - Glucose 110s-200 over past 24 hours - Covid, Influenza, RSV negative - LDH 240, LA wnl, blood cultures: preliminary read negative - UA noninfectious, 2+ ketones - Prelim blood cultures without growth - Patient transitioned from insulin gtt>subQ insulin 10 PM - BG goal for 70-140 - Plan: - Replete electrolytes as needed - Encourage PO intake, scheduled antiemetics status: - NST BID - BSUS 01/29/23: vertex, CLARA 9.20cm, MVP 3.33cm - PNC US 01/25: ceph, CLARA 17.4cm, MVP 8.3cm, NST reactive - PN US 01/21: ceph, EFW 2585g (89%), AC 98%, anterior placenta, MVP 6.2cm, CLARA 16.2cm 3. T1DM - A1c 5.6% (08/2022) - 24hr TUP 407 baseline per MFM - Humalog pump + Dexcom CGM, see above for most recent settings, adjusted 01/20/23 - Patient does not have insulin pump supplies, will continue subQ insulin with the following regimen - Lantus 12/08 (decreased this AM) - ICR 1:7 MN-1900, 1:8 1900-MN - pre-prandial correction 1:30>120 - F/Pre/Post/qhs/0200; or if patient experiences symptoms of hypoglycemia - Ensure shakes ordered for nutritional supplementation with meals - Transitioned to general diet from diabetic diet for increased meal options - Patient declining heparin at this time 4. Hx CS - Indication: complete and pushing with intolerance - Planning RCS - Hgb 9.4 > 8.3 - s/p venofer infusion 02/01, will repeat when able inpatient if patient is still admitted at that time 5. Hx RPL 6. Elevated blood pressure - Reports nausea, vomiting, fatigue - The range of BP in the last 24 hours is: BP: (122-131)/(76-92) - Patient denies history of elevated blood pressure - Labs as above, proteinuria 7. labs - GBS negative 02/01 - Blood type: Opos - Rubella immune, HIV neg, HBV neg, RPR neg - Ordering repeat RPR today - Tdap and Flu shot today Plan: Seen and discussed with Dr. Jenkins. Will continue with the plan as outlined above. Fidel Perez MD PATRON ATTENDANT PGY-2 Resident MFM Attending Attestation: I have seen, examined and counseled the patient with the resident and agree with the assessment andplan. Chey is a @ 35w1d who is admitted for starvation ketosis. Having more nausea this AM. BP (!) 128/92 Pulse 92 Temp 97.8 ??F (36.6 ??C) (Oral) Resp 16 Ht 5' 2 (1.575 m) Wt 74.4kg (164 lb) SpO2 100% No BMI 30.00 kg/m?? NAD Normocephalic, PERRL Lungs CTAb, no wheezes or crackles Heart regular rhythm Abdomen soft, gravid Edema tr Starvation ketosis, now resolved. T1DM. Hypoglycemia again noted. Insulin decreased today. Treat nausea prn. Cont hospitalization. Charisma Jenkins MD Maternal Medicine [facility], [place], [place] * Pinky Minaya RN - 02/03/2023 8:[address] Hobson PGY-3 called into nurses station. Orders received for morning lispro to be 1u per 7 carbohydrates. PGY-3 to update MAR. * Cammie Macario MD - 02/03/2023 12:43 AM CDT Brief Resident Note Came to recheck patient's cervix and reassess contractions. Contractions have spaced out to q5-7. Patient reports they are less painful than before, around 11/09. Tylenol offered for pain and patient declined. Cervix is unchanged. She feels like her blood sugar is low, POC glucose 53. Nurse is following the hypoglycemia protocol. Patient is receiving her second 500ml bolus. Continue to assess as needed and treat blood sugars per hypoglycemia protocol. Hospitalist updated. Cammie Macario MD Obstetrics & Gynecology Resident, PGY-2 Pager #: * Cammie Macario MD - 02/02/2023 11:41 PM CDT Brief Resident Note Was updating that patient was feeling worsening contractions. At bedside, patient reports she was feeling contractions all day and doesn't think the toco monitor was placed in the right spot. She feels them every few minutes and rates them an 8/10. She denies any leaking of fluid or vaginal bleeding. On speculum exam, cervix appears slightly dilated. On SVE, cervical exam 2/70/-2. On the toco, contractions every 3-4 minutes. Patient is receiving a 500ml bolus. Plan to do another 500ml bolus andrecheck cervix in an hour or earlier if worsening contractions. Hospitalist senior online marketing manager updated. Cammie Macario MD Obstetrics & Gynecology Resident, PGY-2 Pager #: * Charisma Jenkins MD - 02/02/2023 9:32 PM CDT Non-Stress Test Indication: T1DM, recent DKA Gestational Age: 35w0d Baseline: 145 bpm Variability: moderate Accelerations: present Decelerations: Intermittent small variable decels TOCO: CTXs no Interpretation: reactive Amanda Combs DO OBKEVIN PGY4 Pager: [phone] Agree with documentation. Charisma Jenkins MD [facility] * Ken Mcduffie (Student) - 02/02/2023 2:42 PM CDT Spiritual Care Note Reason for Encounter: Patient spiritual issues identified summary of patient???s most significant issue(s): Emotional Support - Need to talk and express feeling Spiritual interventions Active listening Facilitated expression/processing of emotions Provided prayer Acknowledged current situation Discussed concerns Outcomes of Care Rapport established Patient expresses gratitude for conversation Connected to spiritual support through prayer Identify people in their life who are supportive Goals of Spiritual Care Theatrical Rigger Plan I plan to follow up during rounds to offer spiritual support and to reassess. Recommendations for Healthcare Team Please feel free to consult spiritual care provider/house detective if/when emotional/spiritual distress arises. Thank you for this referral. TONE Bowman [facility] [phone] * Charisma Jenkins MD - 02/02/2023 10:08 AM CDT Non-Stress Test Indication: T1DM, recent DKA Gestational Age: 35w0d Baseline: 150 bpm Variability: moderate Accelerations: present Decelerations: Absent TOCO: CTXs no Interpretation: reactive Lorenzo Harrison DO PATRON ATTENDANT PGY-4 Pager: [phone] Agree with documentation. Charisma Jenkins MD [facility] * Charisma Jenkins MD - 02/02/2023 8:27 AM CDT Images from the original note were not included. High Risk Rounding Note Primary OB: Under the care of OB Hospitalist Problem List: Starvation ketosis Anion Gap Metabolic Acidosis T1DM H/o CS H/o RPL IUP at 35w0d Subjective: Patient reports lower back pain this AM that started yesterday, worse with laying back/walking. Better if she sits up. Ordering breakfast this AM. Was able to eat some amounts of food yesterday. Objective: Vitals: 02/01/23 1655 02/01/23 1950 02/01/23 2350 02/02/23 0355 BP: 113/73 118/76 107/72 100/61 Pulse: 92 Resp: 16 16 18 16 Temp: 98 ??F (36.7 ??C) 97.7 ??F (36.5 ??C) 98 ??F (36.7 ??C) TempSrc: Oral Oral Oral SpO2: 100% 97% 98% Weight: Height: General: Well-developed, well-nourished female HEENT: NCAT, moist mucus membranes Heart: acyanotic Lungs: non labored breathing Abdomen: Gravid, NT Extremities: No clubbing, cyanosis, or edema. No calf tenderness. No lower back tenderness. Status: Please refer to NST notes; NST BID BSUS 01/29/23: vertex, CLARA 9.20cm, MVP 3.33cm PNC US 01/25: ceph, CLARA 17.4cm, MVP 8.3cm, NST reactive PNC US 01/21: ceph, EFW 2585g (89%), AC 98%, anterior placenta, MVP 6.2cm, CLARA 16.2cm Labs: Recent Labs 01/30/23 1104 01/30/23 1709 01/31/23 0518 01/31/233 02/01/23 0839 02/01/23 2130 02/02/23 0455 WBC 11.1* -- 9.6 -- 6.1 -- 5.5 HGB 9.0* -- 8.4* -- 9.4* -- 8.3* HCT 27.5* -- 26.5* -- 30.7* -- 25.9* PLT 367* -- 329 -- 261 -- 213 NA 136 135* 136 138 137 140 -- K 2.8* 3.9 2.8* 3.4* 3.9 3.8 -- CL 110* 110* 109* 109* 107 109* -- CO2 16* 15* 17* 19* 19* 23 -- BUN 6 5* 4* 3* 3* 4* -- CREAT 0.55 0.46* 0.51 0.52 0.53 0.51 -- GLUCOSE 89 111* 129* 159* 174* 79 -- ALT 8 -- -- -- -- -- -- AST 7 -- -- -- -- -- -- P/c ratio 1.99 (01/29) Diabetes Checklist - Diagnosed at 13 years old - Managed outside by Dr. Sanches - Pre- regimen T slim and dexcom automode - Last DKA Fall 2021 - Hypoglycemic awareness at 60s - Last dilated eye exam: >5 years ago - Last EKG: unknown, ordered 08/2022 - Evidence of end organ damage: none - TSH: ordered - Hgb A1c: 5.6% (08/2022) - Baseline PEC labs: elevated 24h urine protein at 400, otherwise wnl Assessment/Plan: 27 y.o. @ 35w0d with the following: Starvation ketosis - VSS, afebrile - Reports N/V/fatigue x3days>currently dose not have an appetite - Possible gastroparesis, has been prescribed Reglan - Labs significant for leukocytosis, AGMA, proteinuria upon admission - AG closed since 01/30 AM - Leukocytosis resolved - Some electrolyte abnormalities, being replenished as appropriate (hypokalemia, hypophosphatemia)>improving - Glucose 110s-200 over past 24 hours - Repeat labs this AM - Covid, Influenza, RSV negative - LDH 240, LA wnl, blood cultures: preliminary read negative - UA noninfectious, 2+ ketones - Patient transitioned from insulin gtt>subQ insulin 01/31 PM - BG goal for 70-140 - Plan: - Repeat CBC, CMP, Mag, Phos q12hrs, next 02/01 PM - Follow up final blood cultures - Replete electrolytes as needed - Encourage PO intake, scheduled antiemetics status: - NST BID - BSUS 01/29/23: vertex, CLARA 9.20cm, MVP 3.33cm - PN US 01/25: ceph, CLARA 17.4cm, MVP 8.3cm, NST reactive - PN US 01/21: ceph, EFW 2585g (89%), AC 98%, anterior placenta, MVP 6.2cm, CLARA 16.2cm 3. T1DM - A1c 5.6% (08/2022) - 24hr TUP 407 baseline per MFM - Humalog pump + Dexcom CGM, see above for most recent settings, adjusted 01/20/23 - Patient does not have insulin pump supplies, will continue subQ insulin with the following regimen - Lantus 02/09 (decreased this AM) (6U 10/1PM) - ICR 1:4 MN-1900, 1:5 1900-MN - pre-prandial correction 1:30>120 - Continue [id number] if not eating; will transition to fasting, 1 hr PP when tolerating PO intake - Ensure shakes ordered for nutritional supplementation with meals - Transitioned to general diet from diabetic diet for increased meal options - Patient refusing heparin at this time 4. Hx CS - Planning RCS - Hgb 9.4 > 8.3 this AM - s/p venofer infusion yesterday, will repeat when able inpatient is patient is still admitted at that time 5. Hx RPL 6. Elevated blood pressure - Reports nausea, vomiting, fatigue > gradually improving - The range of BP in the last 24 hours is: BP: (100-118)/(61-78) - Patient denies history of elevated blood pressure - Labs as above, proteinuria 7. labs - GBS negative 02/01 - Blood type: Opos - Rubella immune, HIV neg, HBV neg, RPR neg Plan: Seen and discussed with Dr. Jenkins. Will continue with the plan as outlined above. Fidel Perez MD PATRON ATTENDANT PGY-2 Resident MFM Attending Attestation: I have seen, examined and counseled the patient with the resident and agree with the assessment andplan. Chey is a @ 35w0d who is admitted for starvation ketosis and T1DM. BP 100/61 Pulse 92 Temp 98 ??F (36.7 ??C) (Oral) Resp 16 Ht 5' 2 (1.575 m) Wt 74.4 kg (164 lb) SpO2 98% No BMI 30.00 kg/m?? NAD Normocephalic, PERRL Lungs CTAb, no wheezes or crackles Heart regular rhythm Abdomen soft, gravid Edema no Starvation ketosis now resolved. Labs wnl this AM. Po intake has improved over last 24 hours. Pt onregular diet to allow for more choices. T1DM, unable to use pump at this time. Insulin adjusted again this AM due to low BS overnight. Continue inpatient management at this time. Delivery anticipated at 37 weeks. Charisma Jenkins MD Maternal Medicine [facility], [place], [place] * Jazmin Jewell RN - 02/01/2023 11:51 PM CDT 2351: Blood sugar was 63; patient offered juice, crackers and peanut butter, and ensure; patient wanted milk 0014: blood sugar 59; patient encouraged to finish milk 0033: blood sugar 70 0101: blood sugar 83 0131: blood sugar 84 0201: blood sugar 75 * Charisma Jenkins MD - 02/01/2023 9:57 PM CDT Non-Stress Test Indication: T1DM, recent DKA Gestational Age: 34w6d Baseline: 150 bpm Variability: moderate Accelerations: present Decelerations: Absent TOCO: CTXs no Interpretation: reactive Anita Steele MD PATRON ATTENDANT Resident, PGY-3 Pager #: [phone] R3 Pager: [phone] Agree with documentation overall- possible variable deceleration. Overall reassuring. Charisma Jenkins MD [facility] * Jazmin Jewell RN - 02/01/2023 7:54 PM CDT 1953: Blood sugar 58, patient continuing to eat dinner and drink fruit smoothie 2008: Blood sugar 78 1956: PGY 2 paged to give update on patient's blood sugar 2039: Blood sugar 75, pt encouraged to continue to eat dinner and drink smoothie 2127: Blood sugar 97 5: Blood sugar 88 Orders received to return to Q2 blood sugar checks. * Sarita Mari RN - 02/01/2023 5:00 PM CDT Patient c/o feeling cramping in her lower back and asking to be placed on the monitor to see if anycontractions showed on the monitor * Charisma Jenkins MD - 02/01/2023 2:24 PM CDT MATERNAL MEDICINE I independently Interviewed and examined the patient. Pt is a 27 y.o. @ 34w6d admitted for starvation ketosis. c/b T1DM, CD, elevated BP during DKA. Chey Menjivar reports she continues to lack an appetite. Has lost ~20# this . Had to be kept in the hospital x 1 month last due to N/V/DKA. Just changed insurance and doesn't have supplied for insulin pump at this time. BP 118/78 Pulse 86 Temp 97.9 ??F (36.6 ??C) (Oral) Resp 18 Ht 5' 2 (1.575 m) Wt 74.4 kg (164 lb) SpO2 98% No BMI 30.00 kg/m?? NAD, A&O x3 PERRL, EOMI, normocephalic RRR, no rubs or gallops appreciated Lungs CTAb, no wheezes or crackles Soft abdomen, gravid uterus Tr edema, symmetric extremities Lab Results Component Value Date/Time NA 137 02/01/2023 08:39 AM K 3.9 02/01/2023 08:39 AM CL 107 02/01/2023 08:39 AM CO2 19 (L) 02/01/2023 08:39 AM CA 8.2 (L) 02/01/2023 08:39 AM BUN 3 (L) 02/01/2023 08:39 AM CREAT 0.53 02/01/2023 08:39 AM GLUCOSE 174 (H) 02/01/2023 08:39 AM TOTALPROTEIN 5.1 (L) 01/30/2023 11:04 AM ALBUMIN 3.1 (L) 01/30/2023 11:04 AM BILITOTAL 0.7 01/30/2023 11:04 AM ALKPHOS 103 01/30/2023 11:04 AM AST 7 01/30/2023 11:04 AM ALT 8 01/30/2023 11:04 AM ANIONGAP 11 02/01/2023 08:39 AM Lab Results Component Value Date/Time WBC 6.1 02/01/2023 08:39 AM HGB 9.4 (L) 02/01/2023 08:39 AM HCT 30.7 (L) 02/01/2023 08:39 AM PLT 261 02/01/2023 08:39 AM MCV 83.7 02/01/2023 08:39 AM Lab Results Component Value Date/Time HGBA1C 5.7 (H) 01/30/2023 03:57 AM Impression/recommendation: Starvation ketosis. Electrolyte abnormalities improved s/p supplementation. D/c tele today. Antiemetics adjusted. Ensure added to diet. Nutrition consultation. T1DM. Subcut insulin started given lack of pump supplies. Cont to adjust as clinically indicated. Anemia 2/2 iron deficiency. -Venofer Hx of CD x1, planning repeat. Given the chronic nature of the patient's ketosis and risk of DKA/recurrence of starvation ketosis at this late gestation we discussed delivery at 37 weeks. On the day of the visit, I spent 35 minutes providing care to this patient including Preparing to see the patient, Obtaining and/or reviewing separately obtained history, Performing a medically appropriate examination and/or evaluation, Counseling and educating the patient/family/caregiver, and Docu menting clinical information in the medical record. Charisma Jenkins MD Maternal Medicine * Charisma Jenkins MD - 02/01/2023 1:35 PM CDT Non-Stress Test Indication: DKA Gestational Age: 34w6d Baseline: 150 bpm Variability: moderate Accelerations: present Decelerations: Absent TOCO: CTXs occasional Interpretation: reactive Cheli Hobson MD PATRON ATTENDANT Resident, PGY-3 Agree with documentation. Occasional variable. Charisma Jenkins MD [facility] * Cheli Hobson MD - 02/01/2023 8:45 AM CDT Images from the original note were not included. High Risk Rounding Note Primary OB: Under the care of OB Hospitalist Problem List: Starvation ketosis Anion Gap Metabolic Acidosis T1DM H/o CS H/o RPL IUP at 34w6d Subjective: Patient continues to feel as if she were hit by a bus . She reports she feels improved, though weak. Has not had an appetite. Objective: Vitals: 02/01/23 0014 02/01/23 0015 02/01/23 0440 02/01/23 0900 BP: 113/66 98/59 118/78 Pulse: Resp: 18 Temp: 98 ??F (36.7 ??C) 97.9 ??F (36.6 ??C) TempSrc: Oral Oral SpO2: 99% 98% Weight: Height: General: Well-developed, well-nourished female HEENT: NCAT, moist mucus membranes Heart: acyanotic Lungs: non labored breathing Abdomen: Gravid, NT Extremities: No clubbing, cyanosis, or edema. No calf tenderness. Status: Please refer to NST notes; NST BID BSUS 01/29/23: vertex, CLARA 9.20cm, MVP 3.33cm PNC US 01/25: ceph, CLARA 17.4cm, MVP 8.3cm, NST reactive PNC US 01/21: ceph, EFW 2585g (89%), AC 98%, anterior placenta, MVP 6.2cm, CLARA 16.2cm Labs: Recent Labs 01/29/23 1703 01/29/23 2153 01/30/23 0015 01/30/23 0357 01/30/23 1104 01/30/23 1709 01/31/23 0518 01/31/23 2123 02/01/23 0839 WBC 20.2* 18.5* 16.6* 14.0* 11.1* -- 9.6 -- 6.1 HGB 12.7 10.9* 9.3* 9.2* 9.0* -- 8.4* -- 9.4* HCT 42.2 35.5 30.5* 29.6* 27.5* -- 26.5* -- 30.7* PLT 487* 422* 342 364* 367* -- 329 -- 261 NA 134* 131* 131* 132* 136 135* 136 138 137 K 4.3 3.7 3.7 3.1* 2.8* 3.9 2.8* 3.4* 3.9 CL 100 101 103 107 110* 110* 109* 109* 107 CO2 7* 7* 7* 11* 16* 15* 17* 19* 19* BUN 7 6 6 6 6 5* 4* 3* 3* CREAT 0.65 0.58 0.52 0.53 0.55 0.46* 0.51 0.52 0.53 GLUCOSE 139* 184* 194* 128* 89 111* 129* 159* 174* ALT 10 9 8 7 8 -- -- -- -- AST 15 11 9 7 7 -- -- -- -- P/c ratio 1.99 (01/29) Diabetes Checklist - Diagnosed at 13 years old - Managed outside by Dr. Sanches - Pre- regimen T slim and dexcom automode - Last DKA Fall 2021 - Hypoglycemic awareness at 60s - Last dilated eye exam: >5 years ago - Last EKG: unknown, ordered 08/2022 - Evidence of end organ damage: none - TSH: ordered - Hgb A1c: 5.6% (08/2022) - Baseline PEC labs: elevated 24h urine protein at 400, otherwise wnl Assessment/Plan: 27 y.o. @ 34w6d with the following: Starvation ketosis - VSS, afebrile - Reports N/V/fatigue x3days>currently dose not have an appetite - History of gastroparesis, prescription for scopolamine patch which has helped - Labs significant for leukocytosis, AGMA, proteinuria - AG closed since 930 AM - Leukocytosis resolved - Some electrolyte abnormalities, being replenished as appropriate (hypokalemia, hypophosphatemia)>improving - Glucose 110s-200 over past 24 hours - Covid, Influenza, RSV negative - LDH 240, LA wnl, blood cultures: preliminary read negative - UA noninfectious, 2+ ketones - Patient transitioned from insulin gtt>subQ insulin 01/31 PM - BG goal for 70-140 - Plan: - Repeat CBC, CMP, Mag, Phos q12hrs, next 02/01 PM - Follow up final blood cultures - Replete electrolytes as needed - Encourage PO intake, scheduled antiemetics status: - NST BID - BSUS 01/29/23: vertex, CLARA 9.20cm, MVP 3.33cm - PNC US 01/25: ceph, CLARA 17.4cm, MVP 8.3cm, NST reactive - PN US 01/21: ceph, EFW 2585g (89%), AC 98%, anterior placenta, MVP 6.2cm, CLARA 16.2cm 3. T1DM - A1c 5.6% (08/2022) - 24hr TUP 407 baseline per MFM - Humalog pump + Dexcom CGM, see above for most recent settings, adjusted 01/20/23 - Patient does not have insulin pump supplies, will continue subQ insulin with the following regimen - Lantus 04/13 (6U 10/1PM) - ICR 1:3 MN-1900, 1:4 1900-MN - pre-prandial correction 1:30>100 - Continue [id number] if not eating; will transition to fasting, 1 hr PP when tolerating PO intake - Ensure shakes ordered for nutritional supplementation with meals - Transitioned to general diet from diabetic diet for increased meal options 4. Hx CS - Planning RCS 5. Hx RPL 6. Elevated blood pressure - Reports nausea, vomiting, fatigue - The range of BP in the last 24 hours is: BP: (98-130)/(59-80) - Patient denies history of elevated blood pressure - Labs as above, proteinuria, otherwise normal 7. labs - GBS collected and pending - Blood type: Opos - Rubella immune, HIV neg, HBV neg, RPR neg Plan: Seen and discussed with Dr. Jenkins. Will continue with the plan as outlined above. Cheli Hobson MD PATRON ATTENDANT Resident, PGY-3 * Kita Hastings GN - 02/01/2023 4:[address] Steele, PGY-3, notified of incompatibilities with electrolyte replacement and LR. OK to run NS while running electrolyte replacement. * Cammie Macario MD - 02/01/2023 12:47 AM CDT In patient's room to collect GBS swab with RN racing car driver. Cammie Macario MD Obstetrics & Gynecology Resident, PGY-2 Pager #: [phone] Charisma Jenkins MD - 01/31/2023 9:52 PM CDT Non-Stress Test Indication: DKA Gestational Age: 34w5d Baseline: 150 bpm Variability: moderate Accelerations: present Decelerations: One small variable decel TOCO: CTXs no Interpretation: reactive Amanda Combs DO OBGYN PGY4 Pager: [phone] Agree with documentation. Charisma Jenkins MD [facility] * Laura Salazar MD - 01/31/2023 4:56 PM CDT Brief Resident Note Patient transferred to antepartum. Continues to report improvement. States she had some jello and small snacks today but does not yet have full return of appetite. Denies nausea. No other complaints. Reviewed FHT. Last decel at 1130. 1-2 mins with kylah in 90s. Reactive since that time. Will take off continuous at this time and repeat NST tonight. Discussed with Dr. Marino. Continue q2h accuchecks, start heparin for DVT prophylaxis, continue labs 12h and electrolyte repletion. Lantus 6U ordered for this PM and will start 12/12 tomorrow AM. Laura Salazar MD PGY3 OBGYN [phone] * Soniya Monreal RN - 01/31/2023 3:47 PM CDT EFM removed for transfer to [facility]. * Zbigniew Lima RN - 01/31/2023 3:28 PM CDT Shift Note: Off insulin gtt, pt transitioned to long and short acting insulin. Diet changed to regular. Pt was awake and denies nausea during this RN shift. Shift Undress and Assess performed by two coworkers: 1. Jaime RN 2. Lula RN * Soniya Monreal RN - 01/31/2023 3:[address] Salazar, PGY3, patient may transfer to antepartum at this time. Patient RN notified. * Manuel Goldstein MD - 01/31/2023 3:11 PM CDT CRITICAL CARE MEDICINE DAILY PROGRESS NOTE Reason for ICU admission: ketoacidosis requiring insulin drip HPI: Chey Menjivar is a 27 y.o. female PMH: T1DM with dexacom CGM and insulin pump, gastroparesis at 34W gestation female w/ hx of T1DM w/ insulin pump, diabetic gastroparesis, recent admission for DKA admitted 01/29/2023 with intractable N/V. Has been using scheduled reglan and scopolamine patch but unable to tolerate PO intake consistently for the last 3-4 days. Initially admitted to L&D then transferred to ICU for insulin gtt. Noted spontaneous decelerations on monitor-- per MFM likely 2/2 DKA. Given 3L LR bolus prior to transfer to ICU. Started on vanc and zosyn empirically, no obvious source of infection at this time. Patient states she has been compliant with her insulin regimen, reports no recent manipulation/issues with insulin pump. Denies CP, recent illness, cough, dysuria, diarrhea, alcohol/illicit substance use. Her primary OB is at [facility]. ICU Timeline: 01/29: insulin gtt, vancomycin + zosyn for questionable sepsis (no known source of infection) 01/30: emesis has improved, pt has been declining antiemetics. OB recommends continuing insulin gtt until tomorrow 01/31: transfer to OB 24h events/Subjective: Reflected in above timelines Assessment and Plan: Neuro/Psych: BERNIE Cardiovascular/Fluids: BERNIE Pulmonary: Stable on RA, maintain SpO2 >90% GI/NUT: Diabetic gastroparesis Intractable nausea and vomiting Likely a combination of gastroparesis, hyperemesis gravidarum Encourage 10 mg reglan IV q6h Would dc scopolamine patch Pepcid Prn zofran, compazine DIET GENERAL Effective Now Renal/LYTES/Acid-Base: Starvation ketosis dehydration Gap 27 upon arrival, now 14. Lactic acid normal. UA 2+ ketones. Leukocytosis is likely reactive. UOP is adequate Transition to subq long acting Titrate insulin as needed Decrease D5LR Hypophosphatemia, hypokalemia, hypomagnesemia Anabolism s/p prolonged period of poor PO intake. At risk for refeeding syndrome S/p Mg 4 g IV replacement K phosphate IV replacement vitamin Monitor closely with BMP, Mg, Phos q12h Infectious Disease: Systemic inflammatory response syndrome Suspect stress induced from underlying starvation Flu, RSV, COVID negative UA negative DC abx Hem/Onc/Coag: BERNIE Endocrine: Starvation ketoacidosis c/b T1DM 2/2 intractable nausea and vomiting/poor PO intake Upon arrival, sGlu 139, AG 27 HgbA1c 5.6% in 08/2022, 7% in 05/2022 - T1DM has been well-controlled with insulin pump DKA pathway initiated, insulin gtt, D5LR Continue insulin gtt until tomorrow, per OB. Then resume insulin pump Musculoskeletal/Skin: BERNIE Trauma: BERNIE OBGYN at 34W OB following No suspicion for pre-eclampsia at this time vitamin qd heart monitor Prophylaxis: Stress Ulcer Prophylaxis: H2 sandra. DVT Prophylaxis: holding lovenox Lines: Peripheral IV/IV's. Active Hospital Problems Diagnosis , supervision, high-risk Intractable vomiting with nausea Type 1 diabetes mellitus affecting , antepartum Diabetic gastroparesis Diabetic ketoacidosis associated with type 1 diabetes mellitus Resolved Hospital Problems No resolved problems to display. Objective: Current vital signs Blood pressure 117/79, pulse 86, temperature 97.8 ??F (36.6 ??C), temperature source Axillary, resp. rate 24, height 5' 2 (1.575 m), weight 74.4 kg (164 lb), SpO2 100 %, not currently . 24 hour BP and temperature range BP: (95-136)/(55-88) Temp (24hrs), Av.8 ??F (36.6 ??C), Min:97.6 ??F (36.4 ??C), Max:98.4 ??F (36.9 ??C) Input/Output 01/29 1900 - 01/31 0659 In: 53420.5 [I.V.:53853.5] Out: 1250 [Urine:1250] Physical Exam GENERAL: Sleeping, easily wakes to my arrival, appears tired Neurological: AAOx3, motor and sensory grossly normal HEENT: NC/AT Pulmonary/Resp: CTAB, normal effort Cardiovascular: Tachycardic, reg rhythm Gastrointestinal: Gravid uterus, non-tender Skin: warm, normal color Extremities: no edema, pulses palpable Data Review: CBC: Recent Labs 01/29/23170201/29/23215201/30/23 0015 01/30/23 0357 01/30/23 1104 01/31/23 0518 WBC 20.2* 18.5* 16.6* 14.0* 11.1* 9.6 HGB 12.7 10.9* 9.3* 9.2* 9.0* 8.4* HCT 42.2 35.5 30.5* 29.6* 27.5* 26.5* PLT 487* 422* 342 364* 367* 329 MCV 84.1 83.5 84.0 82.5 79.7* 82.3 BMP: Recent Labs 01/29/23170201/29/23215201/30/23 0015 01/30/23 0357 01/30/23 11001/30/23 1709 01/31/23 0518 GLUCOSE 139* 184* 194* 128* 89 111* 129* BUN 7 6 6 6 6 5* 4* CREAT 0.65 0.58 0.52 0.53 0.55 0.46* 0.51 NA 134* 131* 131* 132* 136 135* 136 K 4.3 3.7 3.7 3.1* 2.8* 3.9 2.8* CL 100 101 103 107 110* 110* 109* CO2 7* 7* 7* 11* 16* 15* 17* ANIONGAP 27* 23* 21* 14 10 10 10 MG -- 1.7 -- 1.5* -- 2.0 1.7 PO4 -- 1.5* -- 1.0* -- 3.3 1.4* Estimated Creatinine Clearance: 157.8 mL/min (by C-G formula based on SCr of 0.51 mg/dL). LFTs: Recent Labs 01/29/23 1703 01/29/23 2153 01/30/23 0015 01/30/23 0357 01/30/23 1104 ALKPHOS 195* 135* 113* 108* 103 ALT 10 9 8 7 8 AST 15 11 9 7 7 BILITOTAL 0.8 0.7 0.6 0.7 0.7 ALBUMIN 5.4* 3.7 3.2* 3.2* 3.1* CRP: Lab Results Component Value Date/Time CRP 8.9 (H) 01/29/2023 09:53 PM Coagulation: No results for input(s): PT , INR , APTT in the last 72 hours. Arterial Blood Gas: No results found for: PHARTERIAL , PO2ART , ALE5TUG , DOO4ZDF , BASEEXCESS , SO2ABG Central VBG: No results found for: PHMIXEDVEN , HB1BWKSQSY , FRB7GQADDO , VYR3EQNOX , DC5XFCC Lactic acid: Lab Results Component Value Date/Time LACTATE 1.2 01/30/2023 11:04 AM LACTATE 1.5 01/30/2023 03:57 AM LACTATE 1.8 01/30/2023 12:15 AM Radiology Last Imaging reviewed * Chris Aguirre MD - 01/31/2023 11:42 AM CDT Critical Care Medicine Attending Daily Progress Note I reviewed the medical record including the applicable Critical Care Medicine resident, Fellow, CASINO BEVERAGE SERVER or PA???s note from today. I independently examined the patient. I discussed the history, physical findings, laboratory findings, assessment and plan with the applicable resident/Fellow/CASINO BEVERAGE SERVER/PA on rounds. Reason for ICU admission: Ketoacidosis. I have reviewed the physical exam findings in the applicable resident/Fellow/CASINO BEVERAGE SERVER/PA's note. I have reviewed the assessment and plan in the applicable resident/Fellow/CASINO BEVERAGE SERVER/PA's note. Notable amendments to the assessment and plan include: Plan for today: Patient is 34 weeks gestational age with type 1 diabetes managed with a Dexcom and tandem insulin pump. Patient has had significant nausea and vomiting due to the and her underlying gastroparesis. She was admitted with ketoacidosis thought to be due to DKA and placed in the ICU to be on an insulin drip. Clinical picture and history more consistent with starvation ketoacidosis rather than DKA. Change from insulin drip to ASSOCIATE DIRECTOR FINANCE regimen of Lantus. At high risk of hypoglycemia due to poor po intake. Recommend not to be aggressive with Lantus regimen and continue at once daily regimen for now. Continue low dose SSI for now and adjust as needed. Dehydration secondary to nausea, vomiting, and DKA-patient is choosing to not take antiemetics at this time. Ongoing IV fluid with adequate urine output. Advised patient to try Reglan as ordered. Marked hypophosphatemia-this patient is at risk for refeeding syndrome, phosphate is being repleted Maternal- medicine is monitoring the . Transfer out of ICU. Code status: Full Code Family Communication: Updated patient at bedside. Critical care time including time at bedside, frequent reassessments, time spent discussing care with other medical staff for coordination of care, reviewing existing charting and interventions and completing documentation was 35 minutes. Active Hospital Problems Diagnosis Starvation ketoacidosis , supervision, high-risk Intractable vomiting with nausea Type 1 diabetes mellitus affecting , antepartum Diabetic gastroparesis Resolved Hospital Problems No resolved problems to display. Chris Aguirre MD Critical Care Physician. * Soniya Monreal RN - 01/31/2023 11:[address] Roberto notified of deceleration, resolved with position changes. No new orders received at this time. * Soniya Monreal RN - 01/31/2023 11:36 AM CDT PGY2 paged to be notified of deceleration. * Zbigniew Marino MD - 01/31/2023 10:15 AM CDT High Risk Rounding Note Primary OB: Under the care of OB Hospitalist ERNESTINA Consulting Problem List: Starvation ketosis vs DKA AGMA T1DM H/o CS H/o RPL IUP at 34w5d Subjective: Chey is awake and resting this AM. She still feels like 'she got hit by a truck'. Shereports normal FM, denies contractions, bleeding, LOF. Objective: Vitals: 01/31/23 0700 01/31/23 0800 01/31/23 0900 01/31/23 1000 BP: 128/85 120/88 112/75 118/80 Pulse: (!) 107 (!) 112 99 89 Resp: Temp: 97.6 ??F (36.4 ??C) TempSrc: Axillary SpO2: 100% 100% 100% 100% Weight: Height: General: Well-developed, well-nourished female somnolent but responsive HEENT: mucous membranes still appear slightly dry Heart: acyanotic Lungs: non labored breathing Abdomen: Gravid, NT Extremities: No clubbing, cyanosis, or edema. No calf tenderness. Status:FHT: 150, mod variability, +accels, 2 spontaneous decelerations around 4AM. NST reactive since then. [place]: Currently off toco BSUS 01/29/23: vertex, CLARA 9.20cm, MVP 3.33cm PNC US 01/25: ceph, CLARA 17.4cm, MVP 8.3cm, NST reactive PNC US 01/21: ceph, EFW 2585g (89%), AC 98%, anterior placenta, MVP 6.2cm, CLARA 16.2cm Labs: Recent Labs 01/29/23 1703 01/29/23 2153 01/30/23 0015 01/30/23 0357 01/30/23 1104 01/30/23 1709 01/31/23 0518 WBC 20.2* 18.5* 16.6* 14.0* 11.1* -- 9.6 HGB 12.7 10.9* 9.3* 9.2* 9.0* -- 8.4* HCT 42.2 35.5 30.5* 29.6* 27.5* -- 26.5* PLT 487* 422* 342 364* 367* -- 329 NA 134* 131* 131* 132* 136 135* 136 K 4.3 3.7 3.7 3.1* 2.8* 3.9 2.8* CL 100 101 103 107 110* 110* 109* CO2 7* 7* 7* 11* 16* 15* 17* BUN 7 6 6 6 6 5* 4* CREAT 0.65 0.58 0.52 0.53 0.55 0.46* 0.51 GLUCOSE 139* 184* 194* 128* 89 111* 129* ALT 10 9 8 7 8 -- -- AST 15 11 9 7 7 -- -- CMP this AM remarkable for hypokalemia at 2.8, hypophosphatemia at 1.4, anion gap closed (10) Diabetes Checklist - Diagnosed at 13 years old - Managed outside by Dr. Sanches - Pre- regimen T slim and dexcom automode - Last DKA Fall 2021 - Hypoglycemic awareness at 60s - Last dilated eye exam: >5 years ago - Last EKG: unknown, ordered 08/2022 - Evidence of end organ damage: none - TSH: ordered - Hgb A1c: 5.6% (08/2022) - Baseline PEC labs: elevated 24h urine protein at 400, otherwise wnl Assessment/Plan: 27 y.o. @ 34w5d with the following: Starvation ketosis vs DKA - Etiology likely n/v, possible viral gastritis. No symptoms of UTI/Pyelo or other source of infection. Tachycardia resolved with hydration, normotensive, no evidence of sepsis. - VSS, afebrile - BP now normotensive - Hypokalemia and hypophosphatemia managed per protocol by ICU - Glucose well controlled on insulin drip - LDH 240, LA wnl, blood cultures pending - UA noninfectious, 2+ ketones - Patient currently on insulin drip - Plan: - Continue fluid resuscitation - Repeat CBC, CMP, LA q4hrs - Follow up blood cultures - Vanc/Zosyn d/c on 01/31 - Replete electrolytes - Continue to hold pharmacologic DVT prophylaxis, if FHT reassuring can start this PM - Continue management per ICU team status: - cEFM - BSUS 01/29/23: vertex, CLARA 9.20cm, MVP 3.33cm - PNC US 01/25: ceph, CLARA 17.4cm, MVP 8.3cm, NST reactive - PNC US 01/21: ceph, EFW 2585g (89%), AC 98%, anterior placenta, MVP 6.2cm, CLARA 16.2cm 3. T1DM - Continue on insulin drip at this time. - When transitioning from drip to SQ insulin (pt does not have pump insulin currently) I recommend the following -Lantus 04/13 (give 1st dose 2-4 prior to d/c pump) -I:C 1:3 from MN-1900, 1:4 from 1900-MN -Preprandial correction of 1:30 > 100 -Recommend starting scheduled reglan for N/V 4. Hx CS - Planning RCS 5. Hx RPL 6. Elevated blood pressure - Normotensive following resolution of DKA, low suspicion for preE at this time 7. labs - GBS pending collect, patient somnolent and did not consent to exam at this time - Blood type: Opos - Rubella immune, HIV neg, HBV neg, RPR neg Plan: Possible d/c from ICU to AP today. Continue correction of electrolyte abnormalities. Zbigniew Marino MD M Attending On the day of the visit, I spent 60 (1 hr) minutes providing care to this patient including Preparing to see the patient, Obtaining and/or reviewing separately obtained history, Performing a medically appropriate examination and/or evaluation, Counseling and educating the patient/family/caregiver, and Documenting clinical information in the medical record. Complexity of medical decision making: High. * Anita Dawson MD - 01/31/2023 6:03 AM CDT Images from the original note were not included. High Risk Rounding Note Primary OB: Under the care of OB Hospitalist Problem List: Starvation ketosis vs DKA AGMA T1DM H/o CS H/o RPL IUP at 34w5d Subjective: Patient improving this morning. She is uncomfortable with bands on her stomach for EFM.Discussed the importance of monitoring given spontaneous decelerations in the [id number] hour. She agreed to continue monitoring. Denies contractions, VB, LOF. She reports that she is feeling better this AM, but is still tired. Objective: Vitals: 01/31/23 0200 01/31/23 0300 01/31/23 0400 01/31/23 0500 BP: 95/55 123/76 104/65 102/60 Pulse: 94 80 87 77 Resp: Temp: 98 ??F (36.7 ??C) TempSrc: Axillary SpO2: 95% 100% 97% 97% Weight: Height: General: Well-developed, well-nourished female somnolent but responsive HEENT: NCAT, moist mucus membranes Heart: acyanotic Lungs: non labored breathing Abdomen: Gravid, NT Extremities: No clubbing, cyanosis, or edema. No calf tenderness. Status: FHT: 150, mod variability, +accels, spontaneous decels lasting 2-3 min x 2, mild variables [place]: silent BSUS 01/29/23: vertex, CLARA 9.20cm, MVP 3.33cm PNC US 01/25: ceph, CLARA 17.4cm, MVP 8.3cm, NST reactive PNC US 01/21: ceph, EFW 2585g (89%), AC 98%, anterior placenta, MVP 6.2cm, CLARA 16.2cm Labs: Recent Labs 01/29/23 1703 01/29/23 2153 01/30/23 0015 01/30/23 0357 01/30/23 1104 01/30/23 1709 01/31/23 0518 WBC 20.2* 18.5* 16.6* 14.0* 11.1* -- 9.6 HGB 12.7 10.9* 9.3* 9.2* 9.0* -- 8.4* HCT 42.2 35.5 30.5* 29.6* 27.5* -- 26.5* PLT 487* 422* 342 364* 367* -- 329 NA 134* 131* 131* 132* 136 135* -- K 4.3 3.7 3.7 3.1* 2.8* 3.9 -- CL 100 101 103 107 110* 110* -- CO2 7* 7* 7* 11* 16* 15* -- BUN 7 6 6 6 6 5* -- CREAT 0.65 0.58 0.52 0.53 0.55 0.46* -- GLUCOSE 139* 184* 194* 128* 89 111* -- ALT 10 9 8 7 8 -- -- AST 15 11 9 7 7 -- -- Repeat labs this AM pending Diabetes Checklist - Diagnosed at 13 years old - Managed outside by Dr. Sanches - Pre- regimen T slim and dexcom automode - Last DKA Fall 2021 - Hypoglycemic awareness at 60s - Last dilated eye exam: >5 years ago - Last EKG: unknown, ordered 08/2022 - Evidence of end organ damage: none - TSH: ordered - Hgb A1c: 5.6% (08/2022) - Baseline PEC labs: elevated 24h urine protein at 400, otherwise wnl Assessment/Plan: 27 y.o. @ 34w5d with the following: Starvation ketosis vs DKA - VSS, afebrile - Tachycardia currently resolved - BP now normotensive - Reports N/V/fatigue x3days - History of gastroparesis, prescription for scopolamine patch which has helped - Labs significant for leukocytosis, AGMA, proteinuria - AG closed since 01/30 AM - Leukocytosis resolved - Some electrolyte abnormalities, managed per protocol by ICU - Glucose 110-150 overnight - Covid, Influenza, RSV negative - LDH 240, LA wnl, blood cultures pending - UA noninfectious, 2+ ketones - Patient currently on insulin drip - BG goal for 70-140 - Plan: - Continue fluid resuscitation - +9.5L since admission - Repeat CBC, CMP, LA q4hrs - Follow up blood cultures - Continue Vanc/Zosyn (01/29pm) - Replete electrolytes - will hold VTE ppx in case of delivery of fetus today - Continue management per ICU team status: - cEFM - FHT improving with improved maternal status - BSUS 01/29/23: vertex, CLARA 9.20cm, MVP 3.33cm - PNC US 01/25: ceph, CLARA 17.4cm, MVP 8.3cm, NST reactive - PNC US 01/21: ceph, EFW 2585g (89%), AC 98%, anterior placenta, MVP 6.2cm, CLARA 16.2cm 3. T1DM - A1c 5.6% (08/2022) - 24hr TUP 407 baseline per MFM - Glucose 110-150s - Humalog pump + Dexcom CGM, see above for most recent settings, adjusted 01/20/23 - Continue current pump regimen at this time 4. Hx CS - Planning RCS 5. Hx RPL 6. Elevated blood pressure - Reports nausea, vomiting, fatigue - The range of BP in the last 24 hours is: BP: (95-136)/(55-87) - Patient denies history of elevated blood pressure - Labs as above, proteinuria, otherwise normal 7. labs - GBS pending collect, patient somnolent and did not consent to exam at this time - Blood type: Opos - Rubella immune, HIV neg, HBV neg, RPR neg Plan: continue ICU management, consider transition from insulin gtt to subcutaneous today. Anita Dawson M.D. PGY3 * Obdulia Estrada RN - 01/31/2023 5:54 AM CDT PGY3 Samir at bedside rounding on patient. * Lula Rader RN - 01/31/2023 5:53 AM CDT End of Shift Note: Pt AOx4, though lethargic throughout shift. Denies pain. BG stable 100's to 150's. AM labs K=2.8 CA=7.8 Phos=1.4 No mag drawn. Urine output only 600 total this shift, no BM. Pt refused reglan and colace. D5LR infusing at 200 Insulin infusing at 2.4 * Obdulia Estrada RN - 01/31/2023 5:50 AM CDT Patient requesting for EFM and TOCO to be removed. Pt states they are hurting/irritating her stomach. RN to notify when PGY3 Samir rounds on pt this morning. TOCO removed. EFM still in place at thistime. * Obdulia Estrada RN - 01/31/2023 5:11 AM CDT PGY3 Samir paged to notify of prolonged decelerations on FHT. * Obdulia Estrada RN - 01/31/2023 4:58 AM CDT PGY2 Reginald paged for another 2-minute prolonged deceleration into the 70s-80s. * Obdulia Estrada RN - 01/31/2023 4:55 AM CDT This RN to bedside for FHR deceleration noted on EFM. Patient asleep on left side w/ HOB elevated approx. 30 degrees. RN tried to wake patient and ask her to move to her right side; however patient drowsy and declined changing position at this time. * Obdulia Estrada RN - 01/31/2023 4:40 AM CDT PGY2 Montelongo paged to notify of 2-minute prolonged deceleration into the 70s. * Zabrina Geronimo DO - 01/30/2023 10:21 PM CDT CCM Brief Progress Note: 10:22 PM Called by nurse regarding fluid order expiring Chart reviewed and action taken: Renewed fluids Zabrina Geronimo DO freight caller fellow [phone] Unable to reach, [facility] [phone] [facility] if still unable to reach ([phone]) * Obdulia Estrada RN - 01/30/2023 8:01 PM CDT Patient tolerating ice chips well at this time. * Obdulia Estrada RN - 01/30/2023 7:52 PM CDT Patient awake and sitting up in bed. Requesting ice chips. Reports she feels movement sometimes. Eating ice chips at this time. * Enrico Casillas MD - 01/30/2023 4:37 PM CDT OB Afternoon Rounding. No new OB management recommendations. Reported that Dr. Marino had been there in the morning. Clarified no anticoagulation at this time, ie, do not start heparin. BSs running consistently in 120s. Enrico Casillas MD OB Hospitalist * Vidhi Espinosa MD - 01/30/2023 1:59 PM CDT CCM ATTENDING: Vidhi Espinosa MD I reviewed the medical record including the applicable Critical Care Medicine resident, Fellow, CASINO BEVERAGE SERVER or PA???s note from today. I independently examined the patient. I discussed the history, physical findings, laboratory findings, assessment and plan with the applicable resident/Fellow/CASINO BEVERAGE SERVER/PA on rounds. I have reviewed the physical exam findings in the applicable resident/Fellow/CASINO BEVERAGE SERVER/PA's note; my notable physical exam findings include: Neuro: Patient is oriented x4 but appears very tired CV: Slightly tachycardic but regular Resp: Clear lungs anteriorly and posteriorly GI: Gravid uterus I have reviewed the assessment and plan in the applicable resident/Fellow/CASINO BEVERAGE SERVER/PA's note. Notable amendments to the assessment and plan include: Main issue(s): Active Hospital Problems Diagnosis , supervision, high-risk Intractable vomiting with nausea Type 1 diabetes mellitus affecting , antepartum Diabetic gastroparesis Diabetic ketoacidosis associated with type 1 diabetes mellitus Resolved Hospital Problems No resolved problems to display. Plan for today: Patient is 34 weeks gestational age with type 1 diabetes managed with a Dexcom and tandem insulin pump. Patient has had significant nausea and vomiting due to the and her underlying gastroparesis. She was admitted with DKA and placed in the ICU to be on an insulin drip. Plan is to continue the insulin drip until Wednesday and then transition her back to her insulin pump. Dehydration secondary to nausea, vomiting, and DKA-patient is choosing to not take antiemetics at this time. Ongoing IV fluid with adequate urine output. Marked hypophosphatemia-this patient is at risk for refeeding syndrome, phosphate is being repleted Maternal- medicine is monitoring the . Family Communication: Patient's fianc?? was updated at the bedside today by me On the day of the visit, I spent 40 minutes providing care to this patient including Performing a medically appropriate examination and/or evaluation, Counseling and educating the patient/family/caregiver, Ordering medications, tests or procedures, and Documenting clinical information in the medical record. * Gretta Roman RN - 01/30/2023 7:36 AM CDT End of Shift Note: Pt admitted to [place] [address] around 2200. A&Ox4, complaining of abdominal pain. Continuous nausea w/ intermittent vomiting, patient refusing PRNs & scheduled reglan. Insulin gtt started & titrated per JUL. Anion Gap closed this am. Voided x2 per bedpan. UNDRESS AND ASSESS FOR ALL ADMISSIONS AND TRANSFERS: Undress and Assess performed by: bedside coworker Gretta and bedside coworker Porter upon transfer to [place] [address] Patient does not have skin breakdown. If yes Description of wound location and appearance: 4. Is the patient a paraplegic/quadriplegic? No If so, if stable spine immediately place on specialty surface. If unstable spine or new spinal injury, consult physician (per facility process) and consult wound care services. 7. Does the patient have an ostomy? No If yes, please consult wound care services. Wound care consult was not initiated. [facility] Skin Care Injury Prevention and Treatment Protocol [facility] Approved by: [facility] - Medical Executive Committee Approval Date: 05/18/2019 ORDERS ARE ENTERED ???PER PROTOCOL?? Nursing Orders: When a patient age 18 years or older has: a documented Teodoro score of 18 or less or a Teodoro sub score of 2 or 1, or a documented condition on the problem list of: diabetes, malnutrition or cachectic, paralysis, spinal cord disorder/injuries or muscle/neurological disease, THEN, the RN will order the Skin Care/Pressure Injury Prevention Pathway and initiate all appropriate interventions as per the Teodoro Risk Assessment Algorithm. When a patient age 18 years or older has a wound requiring treatment, the RN and Wound Care Nurses may order the Skin Care/Pressure Ulcer/Lower Extremity Ulcer Treatment Pathway and use appropriate treatments found in the Nursing Algorithm. The Wound Care Nurse may also order treatments found in the Wound Care Algorithm. * Johanne Coughlin DO - 01/30/2023 7:12 AM CDT CRITICAL CARE MEDICINE DAILY PROGRESS NOTE Reason for ICU admission: ketoacidosis requiring insulin drip HPI: Chey Menjivar is a 27 y.o. female PMH: T1DM with dexacom CGM and insulin pump, gastroparesis at 34W gestation female w/ hx of T1DM w/ insulin pump, diabetic gastroparesis, recent admission for DKA admitted 01/29/2023 with intractable N/V. Has been using scheduled reglan and scopolamine patch but unable to tolerate PO intake consistently for the last 3-4 days. Initially admitted to L&D then transferred to ICU for insulin gtt. Noted spontaneous decelerations on monitor-- per MFM likely 2/2 DKA. Given 3L LR bolus prior to transfer to ICU. Started on vanc and zosyn empirically, no obvious source of infection at this time. Patient states she has been compliant with her insulin regimen, reports no recent manipulation/issues with insulin pump. Denies CP, recent illness, cough, dysuria, diarrhea, alcohol/illicit substance use. Her primary OB is at [facility]. ICU Timeline: 01/29: insulin gtt, vancomycin + zosyn for questionable sepsis (no known source of infection) 01/30: emesis has improved, pt has been declining antiemetics. OB recommends continuing insulin gtt until tomorrow 24h events/Subjective: Reflected in above timelines Assessment and Plan: Neuro/Psych: BERNIE Cardiovascular/Fluids: BERNIE Pulmonary: Stable on RA, maintain SpO2 >90% GI/NUT: NPO sips with meds Intractable nausea and vomiting Likely a combination of gastroparesis, hyperemesis gravidarum 10 mg reglan IV q6h sopolamine patch pepcid Prn zofran, compazine DIET NPO Sips w/Meds, Renal/LYTES/Acid-Base: Anion gap metabolic acidosis Starvation ketosis, DKA, dehydration Gap 27 upon arrival, now 14. Lactic acid normal. UA 2+ ketones. Leukocytosis is likely reactive. UOP is adequate Improved with insulin gtt Continuous IVF (has received 6 L since admission) Hypophosphatemia, hypokalemia, hypomagnesemia Anabolism s/p prolonged period of poor PO intake. At risk for refeeding syndrome S/p Mg 4 g IV replacement K phosphate IV replacement vitamin Monitor closely with BMP, Mg, Phos q12h Infectious Disease: ?Sepsis +SIRS, no known/suspected source of infection Flu, RSV, COVID negative UA negative Blood cx pending Vancomycin + zosyn empirically, likely d/c if blood cx neg Hem/Onc/Coag: BERNIE Endocrine: Starvation ketoacidosis c/b T1DM 2/2 intractable nausea and vomiting/poor PO intake Upon arrival, sGlu 139, AG 27 HgbA1c 5.6% in 08/2022, 7% in 05/2022 - T1DM has been well-controlled with insulin pump DKA pathway initiated, insulin gtt, D5LR Continue insulin gtt until tomorrow, per OB. Then resume insulin pump Musculoskeletal/Skin: BERNIE Trauma: BERNIE OBGYN at 34W OB following No suspicion for pre-eclampsia at this time vitamin qd heart monitor Prophylaxis: Stress Ulcer Prophylaxis: H2 sandra. DVT Prophylaxis: holding lovenox Lines: Peripheral IV/IV's. Active Hospital Problems Diagnosis Diabetic ketoacidosis associated with type 1 diabetes mellitus Resolved Hospital Problems No resolved problems to display. Objective: Current vital signs Blood pressure 116/82, pulse (!) 109, temperature 98.2 ??F (36.8 ??C), temperature source Axillary,resp. rate 20, height 5' 2 (1.575 m), weight 74.4 kg (164 lb), SpO2 99 %, not currently . 24 hour BP and temperature range BP: (92-157)/(46-104) Temp (24hrs), Av.4 ??F (36.9 ??C), Min:97.8 ??F (36.6 ??C), Max:98.8 ??F (37.1 ??C) Input/Output No intake/output data recorded. Physical Exam GENERAL: Sleeping, easily wakes to my arrival, appears tired Neurological: AAOx3, motor and sensory grossly normal HEENT: NC/AT Pulmonary/Resp: CTAB, normal effort Cardiovascular: Tachycardic, reg rhythm Gastrointestinal: Gravid uterus, non-tender Skin: warm, normal color Extremities: no edema, pulses palpable Data Review: CBC: Recent Labs 01/29/23 1703 01/29/23 2153 01/30/23 0015 01/30/23 0357 WBC 20.2* 18.5* 16.6* 14.0* HGB 12.7 10.9* 9.3* 9.2* HCT 42.2 35.5 30.5* 29.6* PLT 487* 422* 342 364* MCV 84.1 83.5 84.0 82.5 BMP: Recent Labs 01/29/23170201/29/23215201/30/23 0015 01/30/23 0357 GLUCOSE 139* 184* 194* 128* BUN 7 6 6 6 CREAT 0.65 0.58 0.52 0.53 NA 134* 131* 131* 132* K 4.3 3.7 3.7 3.1* CL 100 101 103 107 CO2 7* 7* 7* 11* ANIONGAP 27* 23* 21* 14 MG -- 1.7 -- 1.5* PO4 -- 1.5* -- 1.0* Estimated Creatinine Clearance: 151.9 mL/min (by C-G formula based on SCr of 0.53 mg/dL). LFTs: Recent Labs 01/29/23170201/29/23215201/30/235 01/30/23 0357 ALKPHOS 195* 135* 113* 108* ALT 10 9 8 7 AST 15 11 9 7 BILITOTAL 0.8 0.7 0.6 0.7 ALBUMIN 5.4* 3.7 3.2* 3.2* CRP: Lab Results Component Value Date/Time CRP 8.9 (H) 01/29/2023 09:53 PM Coagulation: No results for input(s): PT , INR , APTT in the last 72 hours. Arterial Blood Gas: No results found for: PHARTERIAL , PO2ART , RJA2KRX , PGB4CBL , BASEEXCESS , SO2ABG Central VBG: No results found for: PHMIXEDVEN , NO4SUWDYBF , UAE8VXNSTE , VRO2LYSAU , XK1VDOM Lactic acid: Lab Results Component Value Date/Time LACTATE 1.5 01/30/2023 03:57 AM LACTATE 1.8 01/30/2023 12:15 AM LACTATE 1.8 01/29/2023 09:53 PM Radiology Last Imaging reviewed * Laura Salazar MD - 01/30/2023 6:42 AM CDT Images from the original note were not included. High Risk Rounding Note Primary OB: Under the care of OB Hospitalist Problem List: Starvation ketosis vs DKA AGMA T1DM H/o CS H/o RPL IUP at 34w4d Subjective: Patient improving this morning. Remains lethargic but is more responsive. Continues to have episodes dark brown emesis. Per , patient has had nausea since Wednesday with minimal POintake. She has weekly episodes of nausea/vomiting that spontaneously resolves. She uses a scopalamine patch and reglan at home for nausea. He reports no hospitalizations in this for DKA. Objective: Vitals: 01/30/23 0300 01/30/23 0400 01/30/23 0500 01/30/23 0600 BP: 128/71 122/76 138/87 116/82 Pulse: (!) 133 (!) 116 (!) 115 (!) 109 Resp: Temp: 98.2 ??F (36.8 ??C) TempSrc: Axillary SpO2: 100% 100% 100% 99% Weight: Height: General: Well-developed, well-nourished female somnolent but responsive HEENT: NCAT, moist mucus membranes Heart: acyanotic Lungs: non labored breathing Abdomen: Gravid, NT Extremities: No clubbing, cyanosis, or edema. No calf tenderness. Status: See daily NST notes FHT: 150, mod variability, -accels, intermittent spontaneous decels [place]: silent BSUS 01/29/23: vertex, CLARA 9.20cm, MVP 3.33cm PNC US 01/25: ceph, CLARA 17.4cm, MVP 8.3cm, NST reactive PNC US 01/21: ceph, EFW 2585g (89%), AC 98%, anterior placenta, MVP 6.2cm, CLARA 16.2cm Labs: Recent Labs 01/29/23 1703 01/29/23 2153 01/30/23 0015 01/30/23 0357 WBC 20.2* 18.5* 16.6* 14.0* HGB 12.7 10.9* 9.3* 9.2* HCT 42.2 35.5 30.5* 29.6* PLT 487* 422* 342 364* NA 134* 131* 131* 132* K 4.3 3.7 3.7 3.1* CL 100 101 103 107 CO2 7* 7* 7* 11* BUN 7 6 6 6 CREAT 0.65 0.58 0.52 0.53 GLUCOSE 139* 184* 194* 128* ALT 10 9 8 7 AST 15 11 9 7 LA 1.8 Phos 1.0 Mg 1.5 Ketones 6.9 Diabetes Checklist - Diagnosed at 13 years old - Managed outside by Dr. Sanches - Pre- regimen T slim and dexcom automode - Last DKA Fall 2021 - Hypoglycemic awareness at 60s - Last dilated eye exam: >5 years ago - Last EKG: unknown, ordered 08/2022 - Evidence of end organ damage: none - TSH: ordered - Hgb A1c: 5.6% (08/2022) - Baseline PEC labs: elevated 24h urine protein at 400, otherwise wnl Assessment/Plan: 27 y.o. @ 34w4d with the following: Starvation ketosis vs DKA - AF, tachycardic, hypertensive - Tachycardia improved to the 100-110s - BP now normotensive - Reports N/V/fatigue x3days - History of gastroparesis, prescription for scopolamine patch which has helped - Labs significant for leukocytosis, AGMA, proteinuria - AG closed this AM - Leukocytosis improving - Some electrolyte abnormalities - Glucose remains within goal for - Covid, Influenza, RSV negative - LDH, LA, blood cultures pending - UA noninfectious, 2+ ketones - Patient currently on insulin drip - BG goal for 70-140 - Plan: - Continue fluid resuscitation - +5L since admission - Repeat CBC, CMP, LA q4hrs - Follow up blood cultures - Continue Vanc/Zosyn (01/29pm) - Replete electrolytes - Recommend VTE prophylaxis with heparin rather than lovenox due to high risk for delivery - Continue management per ICU team status: - cEFM - FHT improving with improved maternal status - BSUS 01/29/23: vertex, CLARA 9.20cm, MVP 3.33cm - PNC US 01/25: ceph, CLARA 17.4cm, MVP 8.3cm, NST reactive - PNC US 01/21: ceph, EFW 2585g (89%), AC 98%, anterior placenta, MVP 6.2cm, CLARA 16.2cm 3. T1DM - A1c 5.6% (08/2022) - 24hr TUP 407 baseline per MFM - Glucose 120s-130s - Humalog pump + Dexcom CGM, see above for most recent settings, adjusted 01/20/23 - Continue current pump regimen at this time 4. Hx CS - Planning RCS 5. Hx RPL 6. Elevated blood pressure - Reports nausea, vomiting, fatigue - The range of BP in the last 24 hours is: BP: (92-157)/(46-104) - Patient denies history of elevated blood pressure - Labs as above, proteinuria, otherwise normal 7. labs - GBS pending collect, patient somnolent and did not consent to exam at this time - Blood type: Opos - Rubella immune, HIV neg, HBV neg, RPR neg Plan: continue ICU management Laura Salazar MD PGY3 OBGYN [phone] * Rita Roberts RN - 01/30/2023 6:33 AM CDT Martin PGY3 bedside, updated on improvement in FHT. PGY3 reviewed FHT. * Rita Roberts RN - 01/30/2023 4:51 AM CDT Pardeep, PGY2 made aware of variable into the 90's lasting about a minute and a half with return to baseline with now minimal variability that was previously moderate. No orders received at this time. * Hanna Aguiar RN - 01/29/2023 10:[address] [facility] Sepsis Surveillance note (A positive vSepsis screen does not imply diagnosis) Potential Time Zero: 21:15 3hr jeremias: 00:15 6hr jeremias: 03:15 Criteria A - Questionable Infection Present?: Yes (01/29/232114) Questionable source of infection: Risk for Suspect Infection, source unknown (01/29/232114) SIRS Criteria: Heart rate (pulse) > 90 bpm;Respiration > 20/min;WBC > 12 k/mcL (01/29/232114) Organ Dysfunction Present?: Yes (01/29/232114) Organ Dysfunction Criteria: Hypotension SBP < 90 or MAP < 65 (01/29/232114) Questionable Severe Sepsis/Questionable Septic Shock/Other?: Questionable Severe Sepsis (per cms) (01/29/232114) Initial Lactic Acid?: Yes, Ordered by Bedside;Collected - Yes (Within time frame) (01/29/232114) Blood Cultures?: Ordered - Yes (01/29/232114) Antibiotics?: Ordered - Yes;Administered - Yes (Within time frame) (01/29/232114) The [facility] Sepsis team has notified the Bedside Team, via secure chat and discussed the above. Please call [facility] Sepsis if any assistance is needed. Please call [facility] Sepsis if the patient is not septic and the sepsis alert needs to be cancelled. [facility] Sepsis Hanna Aguiar RN * Rita Roberts RN - 01/29/2023 9:42 PM CDT Patient transferred to ICU, report given to MARY Glynn. This RN assuming care * Rita Roberts RN - 01/29/2023 9:11 PM CDT Lab draw unsuccessful, to send another electronics maintenance technician at this time. * Rita Roberts RN - 01/29/2023 8:55 PM CDT Lab here at this time to collect labs * Rita Roberts RN - 01/29/2023 7:58 PM CDT ROCHELLE RobertoY2 made aware of dark brown color to emesis, no new orders received at this time. * Rita Roberts RN - 01/29/2023 7:27 PM CDT Previous RN spoke with lab at 1927 regarding patient labs collect status, lab to send somebody at that time. * Harish Ferreira PHARMACIST - 01/29/2023 7:08 PM CDT Pharmacy Note: Vancomycin Consult Ms. Chey Menjivar is a 27 y.o. female currently in [facility]/ who was admitted 01/29/2023 4:04 PM.The pharmacy team has been consulted for vancomycin management by Dr. [place]. BP (!) 156/101 Pulse (!) 131 Temp 98.4 ??F (36.9 ??C) (Axillary) Resp 24 Ht 5' 2 (1.575 m) Wt 74.4 kg (164 lb) SpO2 100% No BMI 30.00 kg/m?? All: Patient has no known allergies. Lab Results Component Value Date CREAT 0.65 01/29/2023 Lab Results Component Value Date WBC 20.2 (H) 01/29/2023 HGB 12.7 01/29/2023 HCT 42.2 01/29/2023 PLT 487 (H) 01/29/2023 No results found for: CRP Assessment: Patient is a 27 y.o. female requiring vancomycin for Suspected Sepsis. Goal trough ~15 mcg/mL. The patient's most recent weight is 74.4 kg. Most recent Estimated Creatinine Clearance: 123.8 mL/min (by C-G formula based on SCr of 0.65 mg/dL). Plan: 1. Initial therapy will be vancomycin 1000mg q8h. 2. Pt will be evaluated for AUC vs Trough monitoring as more information becomes available. 3. Assess for potential de-escalation. The pharmacy will continue to follow and adjust as appropriate. Thank you for allowing me to participate in the care of this patient. Harish Luna V, PHARMACIST 01/29/2023 7:07 PM * Rita [place] RN - 01/29/2023 6:36 PM CDT MARY Byrd received call from lab to confirm that patient is lab collect. MARY Byrd confirmed at this time. Lab to send a concrete plant laborer for labs. * Rochelle Orellana RN - 01/29/2023 5:20 PM CDT 1614 - Admitted to [facility] via wheelchair from [facility], patient's mother by side. EFM and toco applied, on left side. Patient responding vaguely and softly to questions and commands. Mother states she had not been feeling well on Wednesday with lower back pain and decreased movement, seen at [facility] then discharged. Vomiting and weakness started on Wednesday, better yesterday, and seen in OB's office for normal visit with ketones in urine on . Ate ice chips this morning and able to shower then progressively weakened throughout the day. Patient denies bleeding or leaking fluid today, but has not felt movement. Jessi[employer] solar sales at bedside. POC in WC 134. Patient tachypnic and tachycardic. OB Rapid Response initiated at 1626. Anesthesia, Dr Morley, and Marcia Marquez PGY-R4 at bedside to assess patient. Orders received for labs and IV fluids. Due to difficult IV start, IV started utilizing ultrasound and labs drawn per anesthesia. [facility] admission completed. 1716 - POC glucose 134. Patient resting with mother, significant other, and daughter at bedside. documented in this encounter H&P Notes * Mora Beard MD - 01/29/2023 10:19 PM CDT CRITICAL CARE MEDICINE HISTORY & PHYSICAL Reason for ICU admission: Ketonemia HPI: Chey Menjivar is a 27 y.o. at 34W gestation female w/ hx of T1DM w/ insulin pump,diabetic gastroparesis, recent admission for DKA admitted 01/29/2023 with intractable N/V. Has been using scheduled reglan and scopolamine patch but unable to tolerate PO intake consistently for the last 3-4 days. Initially admitted to L&D then transferred to ICU for insulin gtt. Noted spontaneous decelerations on monitor-- per MFM likely 2/2 DKA. Given 3L LR bolus prior to transfer to ICU. Started on vanc and zosyn empirically, no obvious source of infection at this time. Patient states she has been compliant with her insulin regimen, reports no recent manipulation/issues with insulin pump. Denies CP, recent illness, cough, dysuria, diarrhea, alcohol/illicit substance use. Past Medical History: Diagnosis Date Abnormal EKG 10/12/2018 10/2018 Acute renal failure 12/23/2022 Altered mental status 03/04/2021 Dehydration 01/02/2018 Last Assessment & Plan: Continue IV fluids with D5 half-normal saline Monitor strict I&Os DM (diabetes mellitus) before 22 weeks with retention of fetus 07/17/2022 Hyperkalemia 01/03/2017 Hypernatremia 01/03/2017 Hypoglycemia 11/11/2018 Leukocytosis 04/29/2021 Last Assessment & Plan: This may be reactive, no source of infection. -pending urine cultures, pending blood culture -sterile pyuria on urinalysis Tachycardia 03/24/2019 Thrombocytopenia 10/28/2021 Urinary tract infection in female 07/17/2022 Past Surgical History: Procedure Laterality Date HX SECTION 2016 HX DILATION AND CURETTAGE 2018 2019 HX TONSILLECTOMY Family History Problem Relation Name Age of Onset Hepatitis Maternal Grandfather No current facility-administered medications on file prior to encounter. Current Outpatient Medications on File Prior to Encounter Medication Sig Dispense Refill scopolamine (Transderm-Scop) 1 mg/72 hr patch Apply 1 Patch to skin as directed see administration instructions for 10 doses. 10 Patch 3 vit,calc76/iron/folic (PNV 29-1 ORAL) Take by mouth. aspirin (ECOTRIN EC) 81 mg Tablet, Delayed Release (E.C.) Take 81 mg by mouth daily. insulin glargine (LANTUS) 100 unit/mL vial Inject 14 units SQ qHS in the case of insulin pump failure. Notify M DM team LUPE if pump fails 10 mL 1 Insulin Syringe-Needle U-100 0.3 mL 31 gauge x 5/16 Syringe To be used to inject insulin 5-8 timesdaily in the case of insulin pump failure. Notify M DM team LUPE if pump fails 100 Each 1 insulin lispro (HumaLOG) 100 unit/mL vial Up to 100U/day via insulin pump 30 mL 5 promethazine (PHENERGAN) 25 mg Suppository blood sugar diagnostic Strip 1 Strip. Acetone, Urine, Test (Ketostix) Strip Use as directed. Notify MD for moderate to large ketones. 100Strip 1 metoclopramide HCl (REGLAN) 5 mg tablet Take 1 Tablet (5 mg) by mouth 4 times daily before meals and at bedtime. 120 Tablet 4 No Known Allergies Social History Socioeconomic History Marital status: Unknown Spouse name: Not on file Number of children: Not on file Years of education: Not on file Highest education level: Not on file Occupational History Not on file Tobacco Use Smoking status: Never Passive exposure: Never Smokeless tobacco: Never Vaping Use Vaping Use: Never used Substance and Sexual Activity Alcohol use: Not Currently Drug use: Never Sexual activity: Yes Partners: Male Other Topics Concern Not on file Social History Narrative Not on file Social Determinants of Health Financial Resource Strain: Not on file Food Insecurity: Not on file Transportation Needs: Not on file Social Connections: Not on file Intimate Partner Violence: Not on file Housing Stability: Not on file Review of Systems Negative except as above. Objective: Current vital signs Blood pressure 132/74, pulse (!) 131, temperature 98.6 ??F (37 ??C), temperature source Axillary, resp. rate 22, height 5' 2 (1.575 m), weight 74.4 kg (164 lb), SpO2 100 %, not currently . 24 hour BP and temperature range BP: (106-157)/(46-104) Temp (24hrs), Av.3 ??F (36.8 ??C), Min:97.8 ??F (36.6 ??C), Max:98.6 ??F (37 ??C) Input/Output No intake/output data recorded. Physical Exam General Appearance: AAOx3, NAD HEENT: PERRL, normocephalic, atraumatic Neck: no LAD Heart: RRR, no murmur Chest: CTAx2, no wheezing Abdomen: S+D, +BS, non-tender Extremities: no LE edema Musculoskeletal: strength 5/5 all extremities Skin: Acyanotic atraumatic Data Review: BMP: Recent Labs 01/29/23 1703 GLUCOSE 139* BUN 7 CREAT 0.65 NA 134* K 4.3 CL 100 CO2 7* ANIONGAP 27* estimated creatinine clearance is 123.8 mL/min (by C-G formula based on SCr of 0.65 mg/dL). LFTs: Recent Labs 01/29/23 1703 ALKPHOS 195* ALT 10 AST 15 BILITOTAL 0.8 ALBUMIN 5.4* CBC: Recent Labs 01/29/23170201/29/23 2153 WBC 20.2* 18.5* HGB 12.7 10.9* HCT 42.2 35.5 PLT 487* 422* MCV 84.1 83.5 Coagulation: No results for input(s): PT , INR , APTT in the last 72 hours. ABG: No results found for: PHARTERIAL , KEO2YKN , PO2ART , NOQ2DUC , BASEEXCESS , SO2ABG Central VBG: No results found for: PHMIXEDVEN , QN7IAMGFKZ , EDT9IMMNOG , UGB5ERCXA , QI3WEMI Lactic acid: Lab Results Component Value Date/Time LACTATE 1.8 01/29/2023 09:53 PM Assessment and Plan: Neuro/Psych: BERNIE Cardiovascular/Fluids: Right axis deviation Likely physiologic Questionable Sepsis by SIRS, no obvious source of infection Blood cultures collected Empirically left on vanc + zosyn Pulmonary: BERNIE GI/NUT: Diet: NPO sips w/ meds Diabetic gastroparesis Qtc WNL Scheduled reglan Continue scopolamine patch Renal/LYTES/Acid-Base: HAGMA Lactic WNL Check osmolar gap Infectious Disease: As above Hem/Onc/Coag: DVT ppx: lovenox Endocrine: Ketonemia w/ hx of T1DM and insulin pump Likely primarily starvation ketosis in setting of fiabetic gastroparesis DKA pathway-- insulin gtt, D5LR Will need to verify if insulin pump has been working in AM U/A clear, no obvious source of infectious precipitant BMPq4, mg and pos q8 Musculoskeletal/Skin: BERNIE OBGYN at 34W OB following (MFM Dr. Marino this wekend) No suspicion for pre-eclampsia at this time vitamin daily There are no hospital problems to display for this patient. * Erinn Roberto MD - 01/29/2023 4:34 PM CDT Images from the original note were not included. OB History & Physical CC: N/V/fatigue History gathered from patient's mother and patient Subjective: Chey Menjivar is a 27 y.o. @ 34w3d who presents with 3 days of N/V and fatigue. She has been unable to tolerate any PO intake. She denies recent sick contacts. Denies fever, chills, cough, nasal congestion, diarrhea, or dysuria. She does have gastroparesis for which she uses a scopolamine patch which has helped. She has been appreciating less movement. Denies contractions, vaginal bleeding or LOF. Her is complicated by T1DM (diagnosed at 13 y/o). She hasa Tandem insulin pump and Dexcom CGM. She follows with [facility]. Her insulin regimen was adjusted 01/20. She reports her glycemic control has been within goal. She has never been admitted to the hospital for DKA during this but has been admitted for DKA outside of and in her G1 . Her has otherwise been complicated by the following: Hx of LTCS in G1, for NRFHT per collateral H&P Hx RPL Her primary OB is at [facility]. ROS: As above. 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 PMHx: Past Medical History: Diagnosis Date Abnormal EKG 10/12/2018 10/2018 Acute renal failure 12/23/2022 Altered mental status 03/04/2021 Dehydration 01/02/2018 Last Assessment & Plan: Continue IV fluids with D5 half-normal saline Monitor strict I&Os DM (diabetes mellitus) before 22 weeks with retention of fetus 07/17/2022 Hyperkalemia 01/03/2017 Hypernatremia 01/03/2017 Hypoglycemia 11/11/2018 Leukocytosis 04/29/2021 Last Assessment & Plan: This may be reactive, no source of infection. -pending urine cultures, pending blood culture -sterile pyuria on urinalysis Tachycardia 03/24/2019 Thrombocytopenia 10/28/2021 Urinary tract infection in female 07/17/2022 PSHx: Past Surgical History: Procedure Laterality Date HX SECTION 2016 HX DILATION AND CURETTAGE 2018 2019 HX TONSILLECTOMY FHx: Negative for blood clots or bleeding disorders. SHx: Denies tobacco, alcohol, or illicit drug use. Medications: No current facility-administered medications on file prior to encounter. Current Outpatient Medications on File Prior to Encounter Medication Sig Dispense Refill insulin glargine (LANTUS) 100 unit/mL vial Inject 14 units SQ qHS in the case of insulin pump failure. Notify [facility] DM team LUPE if pump fails 10 mL 1 Insulin Syringe-Needle U-100 0.3 mL 31 gauge x 5/16 Syringe To be used to inject insulin 5-8 timesdaily in the case of insulin pump failure. Notify M DM team LUPE if pump fails 100 [...] vit,calc76/iron/folic (PNV 29-1 ORAL) Take by mouth. aspirin (ECOTRIN EC) 81 mg Tablet, Delayed Release (E.C.) Take 81 mg by mouth daily. metoclopramide HCl (REGLAN) 5 mg tablet Take 1 Tablet (5 mg) by mouth 4 times daily before meals and at bedtime. 120 Tablet 4 No Known Allergies Objective: There were no vitals filed for this visit. General: Well-developed, well-nourished female in NAD HEENT: NCAT, moist mucus membranes Heart: acyanotic Lungs: non labored breathing Abdomen: Gravid, NT Extremities: No clubbing, cyanosis, or edema. No calf tenderness. Labs: Recent Labs 01/29/23 1703 WBC 20.2* HGB 12.7 HCT 42.2 PLT 487* NA 134* K 4.3 CL 100 CO2 7* BUN 7 CREAT 0.65 GLUCOSE 139* ALT 10 AST 15 Ketones/beta hydroxybutarate in process Uric acid in process Covid, Influenza, RSV pending Lactic acid pending LDH pending Lab Results Component Value Date/Time PHUA 5.0 01/29/2023 05:27 PM SGUR 1.020 01/29/2023 05:27 PM URINELEUKOC Negative 01/29/2023 05:27 PM NITRITEUA Negative 01/29/2023 05:27 PM KETONEURINE 2+ (A) 01/29/2023 05:27 PM PROTEINUA 3+ (A) 01/29/2023 05:27 PM GLUUA 1+ (A) 01/29/2023 05:27 PM BLOODUA 1+ (A) 01/29/2023 05:27 PM WBCU 3-5 (A) 01/29/2023 05:27 PM RBCUA 3-5 (A) 01/29/2023 05:27 PM BACTERIAUA Negative 01/29/2023 05:27 PM UREPITHELIAL 6-10 (A) 01/29/2023 05:27 PM GLUCOSE and POC GLUCOSE Lab Results Component Value Date/Time GLUCOSE 139 (H) 01/29/2023 05:03 PM GLUCPOC 128 (H) 01/29/2023 05:16 PM GLUCPOC 134 (H) 01/29/2023 04:05 PM Status: FHT: 180, mod variability, no accels, int spontaneous decels [place]: silent BSUS 01/29/23: vertex, CLARA 9.20cm, MVP 3.33cm PNC US 01/25: ceph, CLARA 17.4cm, MVP 8.3cm, NST reactive PNC US 01/21: ceph, EFW 2585g (89%), AC 98%, anterior placenta, MVP 6.2cm, CLARA 16.2cm Diabetes Checklist - Diagnosed at 13 years old - Managed outside by Dr. Sanches - Pre- regimen T slim and dexcom automode - Last DKA Fall 2021 - Hypoglycemic awareness at 60s - Last dilated eye exam: >5 years ago - Last EKG: unknown, ordered 08/2022 - Evidence of end organ damage: none - TSH: ordered - Hgb A1c: 5.6% (08/2022) - Baseline PEC labs: normal 08/2022 Assessment/Plan: 27 y.o. @ 34w3d with nausea, vomiting, and fatigue Suspected DKA - Reports N/V/fatigue x3days - History of gastroparesis, prescription for scopolamine patch which has helped - No improvement s/p zofran, scopolamine patch and 1L LR bolus - Labs significant for leukocytosis (WBC 20.2), AG 27, K 4.3 - Glucose 134>128 - Covid, Influenza, RSV pending - UA noninfectious, 2+ ketones status: - NST non-reactive - BSUS: vertex, CLARA 9.20cm, MVP 3.33cm 3. T1DM - A1c 5.6% per MFM note - 24hr TUP 407 baseline per MFM - Humalog pump + Dexcom CGM, see above for most recent settings, adjusted 01/20/23 4. Hx CS - Planning repeat 5. Hx RPL 6. Elevated blood pressure - The range of BP in the last 24 hours is: BP: (106-157)/(46-104) - Patient denies history of elevated blood pressure - Labs pending 7. labs - GBS pending collect, patient somnolent and did not consent to exam at this time - Blood type: T&S pending collect - Rubella immune, HIV neg, HBV neg, RPR neg Plan: - MFM consult - Fluid resuscitation - Follow up labs Discussed with Dr. Morley. Erinn Roberto MD PGY-2 PATRON ATTENDANT Pager: PGY-2 Pager: documented in this encounter Consult Notes * Elvi Street RN - 02/09/2023 10:22 AM CDTAssociated Order(s): IP CONSULT TO HEEL BUILDER MACHINE Diabetes Type: Type 1 A1C: 5.7 BG Monitoring Supplies(glucometer, strips, lancets): CGM - Dexcom - Currently off BG Monitoring Education: Completed Insulin Education: Completed Diabetes Management Education: Completed Diet and Exercise: Completed Regimen/Anticipated Regimen: Basal/Bolus Barriers to Diabetes Management: None PLEASE have discharge medications filled at [facility]! Reason for consult: Review of Skills/Education Assessment and Review: Consult received for DE. (01/30/23) A1C 5.7 Visited patient post- and in room with patient. Patient normally wears CGM- Dexcom G7. to go get supplies from home to bring up to room prior to D/C. Encouraged patient to use glucometer (handheld) to confirm CGM #'s prior to treating bs if no trendarrows present. Patient plans on and we discussed energy demands related to this and effect on blood sugars. While energy & blood sugar demands will increase. Follow with MFM for guidance ondosing instructions and closely monitor blood sugars. Keep snacks & fast acting sugar source close by to help during hypoglycemic episodes. Pt statesthat she is hypoglycemic aware @high 50's / low 60's. Uses glargine (long acting) and Humalog fast acting insulins. Patient needs insulin pens and needles filled at D/C (also needs Ketone strips, alcohol swabs, testing supply refills. ) Discharge Diabetes Prescriptions Needed: G7, ketone Strips, alcohol swabs, BD Ultra-Fine Mally Pen [place] 32x5/32, Lantus Solostar Insulin Pens, and Humalog Kwikpen DIABETES HISTORY Previous Hemoglobin A1C Results: HEMOGLOBIN A1C Date Value Ref Range Status 01/30/2023 5.7 (H) <5.7 % Final POC Glucose Range: Lab Results Component Value Date/Time GLUCPOC 138 (H) 02/09/2023 09:19 AM GLUCPOC 106 (H) 02/09/2023 05:09 AM GLUCPOC 142 (H) 02/09/2023 02:13 AM GLUCPOC 133 (H) 02/08/2023 09:48 PM GLUCPOC 132 (H) 02/08/2023 08:38 PM GLUCPOC 152 (H) 02/08/2023 07:01 PM GLUCPOC 125 (H) 02/08/2023 06:32 PM GLUCPOC 111 (H) 02/08/2023 06:01 PM GLUCPOC 73 (L) 02/08/2023 05:31 PM GLUCPOC 62 (L) 02/08/2023 05:16 PM EDUCATION Basics: Type 1 diabetes Medication: Side Effects, Methods of Action Insulin and Administration: Prison Insulin Use Monitoring: ADA/AACE Target BG Guidelines, A1C, CGM, Ketone testing Diet and Exercise: ADA/AADE Recommended carb targets, Snacking, Common food choices and carb content, ADA/AADE Recommended activity Complications: Hypoglycemia: Symptoms, Rule of 15, Glucose Tablets, Possible causes, When to call the doctor, Strategies to prevent Hyperglycemia: Symptoms, Treatment, Possible Causes, When to call the doctor, Strategies to prevent Prison: Cardiovascular, Stroke, Neuropathy, Gastroparesis - Autonomic Neuropathy Diabetes Instructions: Do not stop your insulin or diabetes medication unless instructed by your physician. Continue medications during sick days Call physician for instructions if you are sick Check blood sugar 4 times per day or as directed by physician. Goal blood sugar 80-130 mg/dL before meals. Goal blood sugar 100-180 before bedtime Call physician for sugar less than 70 mg/dL, or greater than 350 mg/dL, if experiencing nausea and vomiting or for illness lasting more than [address] [facility] Diabetes Educators [phone] (Wednesday-Wednesday 7:30 AM-5:30 PM) Thank you for allowing us to participate in the care of this patient. Elvi Street MA, BSN, RN Nurse Clinician Diabetes Services Office: [phone] Pager: [phone] * Cindi Tinajero RN - 02/03/2023 4:49 PM CDTAssociated Order(s): IP CONSULT TO IV TEAM IV CONSULT: Request for IV consult. Reviewed electronic record and completed a vascular assessment. PIV startedand documented in EPIC. Long #18 placed utilizing ultrasound. Bed in low position,HOB up 35 degrees, side rails up X2. Safety check completed. RN notified. * Zhanna Willoughby RD - 02/01/2023 2:59 PM CDT CLINICAL DIETITIAN PROGRESS NOTE [facility] Follow Up Nutrition Assessment Pt is a 27 y.o. @ 34w6d admitted for starvation ketosis. c/b T1DM, CD, elevated BP during DKA. Patient reports she may have gastroparesis but without official dx. Pt tolerates liquids and soft foods. Reviewed cho count recommendations. Pt drinks ensure (35 g cho?) at home as meal replacement. Ordered ensure HP (19 g cho) + ensure max (1g cho) at meals. Discussed carb counts - pt works with [facility] outpatient, missed December appointment. Breakfast- 15-30 grams carbohydrates Lunch- 30-45 grams carbohydrates Dinner- 30-45 grams carbohydrates Snacks (goal for 2-3/day)- 15 grams carbohydrates Assessment: Recent Labs 01/30/23 0357 01/30/23 1104 01/30/23 1709 01/31/23 2123 02/01/23 0839 GLUCOSE 128* 89 < > 159* 174* BUN 6 6 < > 3* 3* CREAT 0.53 0.55 < > 0.52 0.53 GFR >60 >60 < > >60 >60 NA 132* 136 < > 138 137 K 3.1* 2.8* < > 3.4* 3.9 CL 107 110* < > 109* 107 CO2 11* 16* < > 19* 19* ANIONGAP 14 10 < > 10 11 CA 8.8 9.0 < > 8.5* 8.2* MG 1.5* -- < > 2.1 2.9* PO4 1.0* -- < > 2.1* 4.0 ALBUMIN 3.2* 3.1* -- -- -- ALKPHOS 108* 103 -- -- -- ALT 7 8 -- -- -- AST 7 7 -- -- -- < > = values in this interval not displayed. Skin: See Flowsheet for more wound documentation Teodoro Score: 23 (02/01/23 0800) Anthropometrics: Height: 5' 2 (157.5 cm) (01/29/23 1640) Weight: 74.4 kg (164 lb) (01/29/23 1640) Body mass index is 30 kg/m??. Last Bowel Movement (mm/dd/yyyy): (ASSOCIATE DIRECTOR FINANCE) (01/31/23 0400) Nutrition Prescription: DIET SUPPLEMENT GEN ADULT TID; Complete Oral Supplement, DIET GENERAL Effective Now Nutrition intake is is meeting less than 75% of recommended nutritional needs D: Same/ I:Nutrition Intervention: DIET SUPPLEMENT GEN ADULT TID; Complete Oral Supplement, DIET GENERAL Effective Now Goal: Consume 75% of meals/ supplements Time spent: 15 minutes M/E: 1. Continue to monitor: Anthropometrics, Digestive, Skin, and Biochemical data 2. Follow up every 4-7 days and as needed. * Judith Allen RD - 01/30/2023 7:07 AM CDTAssociated Order(s): IP CONSULT TO NUTRITION SERVICES CLINICAL DIETITIAN PROGRESS NOTE [facility] Nutrition Consult : Hyperglycemia pathway 34w3d 27 y.o. at 34W gestation female w/ hx of T1DM w/ insulin pump, diabetic gastroparesis, recent admission for DKA admitted 01/29/2023 with intractable N/V. Has been using scheduled reglan and scopolamine patch but unable to tolerate PO intake consistently for the last 3-4 days. Initially admitted to L&D then transferred to ICU for insulin gtt. Noted spontaneous decelerations on monitor-- per MFM likely 2/2 DKA. Given 3L LR bolus prior to transfer to ICU. Started on vanc and zosyn empirically, no obvious source of infection at this time. Patient states she has been compliant with her insulin regimen, reports no recent manipulation/issues with insulin pump Type 1, Diagnosed at 13 years old Hgb A1c: 5.6% (08/2022) Per chart review to is followed by Maternal medicine. Did have appt with them Jan 20 but prior to this, it appears pt missed appt in Dec. Assessment: Anthropometrics: Height: 5' 2 (157.5 cm) (01/29/23 1640) Weight: 74.4 kg (164 lb) (01/29/23 1640) Body mass index is 30 kg/m??. [place] body weight: 50.1 kg (110 lb 7.2 oz) Adjusted ideal body weight: 59.8 kg (131 lb 13.9 oz) Admit weight: Weight: 74.4 kg (164 lb) (01/29/23 1640) Wt Readings from Last 10 Encounters: 01/29/23 74.4 kg (164 lb) 01/06/23 74.4 kg (164 lb) 12/09/22 72.1 kg (159 lb) 08/31/22 78.5 kg (173 lb) Last seven weights (if available) from 01/02/23 0708 to 01/30/23 0707 (Last 7 readings): Weight Weight Method 01/29/23 1640 74.4 kg (164 lb) Estimated PMH: type 1 diabetic Lab Results Component Value Date/Time NA 132 (L) 01/30/2023 03:57 AM K 3.1 (L) 01/30/2023 03:57 AM CL 107 01/30/2023 03:57 AM BUN 6 01/30/2023 03:57 AM CREAT 0.53 01/30/2023 03:57 AM GLUCOSE 128 (H) 01/30/2023 03:57 AM CA 8.8 01/30/2023 03:57 AM ALBUMIN 3.2 (L) 01/30/2023 03:57 AM GFR >60 01/30/2023 03:57 AM MG 1.5 (L) 01/30/2023 03:57 AM PO4 1.0 (L) 01/30/2023 03:57 AM No results found for: HGBA1C , [id number] Pert Meds: lactated ringers, zosyn Food Allergies: No known food allergies Skin: intact Edema: no record Nutrition Prescription: DIET NPO Sips w/Meds, PO Intake: NPO D: Inadequate oral intake r/t inability to consume adequate nutrition as evidenced by NPO I:Nutrition Intervention: Monitor diet advancement Goal: Initiation of nutrition/diet M/E: 1. Continue to monitor: Anthropometrics, Digestive, Skin, and Biochemical data 2. Follow up every 4 days and as needed. Judith Allen RD, LD [phone] (office) [phone] (phone) Epic Secure Chat * Zbigniew Marino MD - 01/29/2023 7:13 PM CDTAssociated Order(s): IP CONSULT TO PERINATOLOGY Images from the original note were not included. [facility] Maternal Medicine Perinatology Consultation 01/29/2023 7:13 PM Requesting provider: Dr. Morley Patient examined and case reviewed. Problem List: 1. T1DM, suspected DKA 2. Hx CS in G1 for NFHT per patient 3. Hx RPL 4. Elevated blood pressure Chey Menjivar is a 27 y.o. at 34w3d presenting with 3 days of N/V and fatigue. She hasbeen unable to tolerate any PO intake. She denies recent sick contacts. Denies fever, chills, cough, nasal congestion, diarrhea, or dysuria. She does have gastroparesis for which she uses a scopolamine patch which has helped. She has been appreciating less movement. Denies contractions, vaginal bleeding or LOF. Her is complicated by T1DM (diagnosed at 13 y/o). She has a Tandem insulin pump and Dexcom CGM. She follows with [facility]. Her insulin regimen was adjusted 01/20. She reports her glycemic control has been within goal. She has never been admitted to the hospital for DKA during this but has been admitted for DKA outside of and in her G1 . . ROS: As above. Denies chest pain, shortness of breath, headache, or vision symptoms. Denies unintended changes in weight. Denies abdominal pain or changes in bowel or bladder habits. OB History: OB History Para Term AB Living 5 1 1 3 1 SAB IAB Ectopic Multiple Live Births 3 # Outcome Date GA Lbr Chuck/2nd Weight Sex Delivery Anes PTL Lv 5 Current 4 2020 6w0d 3 SAB 2019 6w0d 2 2018 6w0d 1 Term 2017 37w0d 3147 g (6 lb 15 oz) F CS-LTranv Comments: DKA admits Systems Development Manager history: Denies history of abnormal Pap smears. Cervical procedures: None. STIs: denies. Past Medical History: Past Medical History: Diagnosis Date Abnormal EKG 10/12/2018 10/2018 Acute renal failure 12/23/2022 Altered mental status 03/04/2021 Dehydration 01/02/2018 Last Assessment & Plan: Continue IV fluids with D5 half-normal saline Monitor strict I&Os DM (diabetes mellitus) before 22 weeks with retention of fetus 07/17/2022 Hyperkalemia 01/03/2017 Hypernatremia 01/03/2017 Hypoglycemia 11/11/2018 Leukocytosis 04/29/2021 Last Assessment & Plan: This may be reactive, no source of infection. -pending urine cultures, pending blood culture -sterile pyuria on urinalysis Tachycardia 03/24/2019 Thrombocytopenia 10/28/2021 Urinary tract infection in female 07/17/2022 Past Surgical History: Past Surgical History: Procedure Laterality Date HX SECTION 2016 HX DILATION AND CURETTAGE 2018 2019 HX TONSILLECTOMY Family History: Family History Problem Relation Name Age of Onset Hepatitis Maternal Grandfather Social History: Social History Tobacco Use Smoking status: Never Passive exposure: Never Smokeless tobacco: Never Vaping Use Vaping Use: Never used Substance Use Topics Alcohol use: Not Currently Drug use: Never Allergies: No Known Allergies Outpatient Medications: No current facility-administered medications on file prior to encounter. Current Outpatient Medications on File Prior to Encounter Medication Sig Dispense Refill scopolamine (Transderm-Scop) 1 mg/72 hr patch Apply 1 Patch to skin as directed see administration instructions for 10 doses. 10 Patch 3 vit,calc76/iron/folic (PNV 29-1 ORAL) Take by mouth. aspirin (ECOTRIN EC) 81 mg Tablet, Delayed Release (E.C.) Take 81 mg by mouth daily. insulin glargine (LANTUS) 100 unit/mL vial Inject 14 units SQ qHS in the case of insulin pump failure. Notify [facility] DM team LUPE if pump fails 10 mL 1 Insulin Syringe-Needle U-100 0.3 mL 31 gauge x 5/16 Syringe To be used to inject insulin 5-8 timesdaily in the case of insulin pump failure. Notify [facility] DM team LUPE if pump fails 100 Each 1 insulin lispro (HumaLOG) 100 unit/mL vial Up to 100U/day via insulin pump 30 mL 5 promethazine (PHENERGAN) 25 mg Suppository blood sugar diagnostic Strip 1 Strip. Acetone, Urine, Test (Ketostix) Strip Use as directed. Notify MD for moderate to large ketones. 100Strip 1 metoclopramide HCl (REGLAN) 5 mg tablet Take 1 Tablet (5 mg) by mouth 4 times daily before meals and at bedtime. 120 Tablet 4 Physical Exam: BP (!) 156/101 Pulse (!) 131 Temp 98.4 ??F (36.9 ??C) (Axillary) Resp 24 Ht 5' 2 (1.575 m) Wt 74.4 kg (164 lb) SpO2 100% No BMI 30.00 kg/m?? General appearance: somnolent, responds to verbal stimuli Skin: warm and dry, intact. Eyes: closed Lungs: non-labored breathing Heart: tachycardic, acyanotic Abdomen: Soft, non-tender. Fundus size appropriate for dates and non-tender. Extremities: No edema, no calf tenderness or palpable cords, negative clubbing, negative cyanosis Labs/Imaging/Testing: Results for orders placed or performed during the hospital encounter of 01/29/23 (from the past 24 hour(s)) POC GLUCOSE Result Value Ref Range GLUCOSE POC 134 (H) 74 - 99 mg/dL SPECIMEN SOURCE, GLUCOSE POC Whole Blood CBC WITH DIFFERENTIAL Result Value Ref Range WBC 20.2 (H) 4.0 - 9.8 K/uL RBC 5.02 (H) 3.90 - 4.90 M/uL HEMOGLOBIN 12.7 11.8 - 14.8 g/dL HEMATOCRIT 42.2 35.5 - 44.0 % MCV 84.1 82.0 - 99.0 fL MCH 25.3 (L) 27.2 - 32.6 pg MCHC 30.1 (L) 31.5 - 35.5 g/dL RDW 16.1 (H) 11.5 - 14.5 % RDW-STDEV 49.1 (H) 37.1 - 48.7 fL PLATELETS 487 (H) 140 - 350 K/uL MPV 8.7 (L) 9.3 - 12.4 fL NEUTROPHILS 80 % LYMPHOCYTES 8 % MONOCYTES 7 % EOSINOPHILS 0 % BASOPHILS 1 % IMMATURE GRANULOCYTES 4 % NEUTROPHIL ABSOLUTE 16.12 (H) 1.90 - 7.00 K/uL LYMPHOCYTE ABSOLUTE 1.66 0.70 - 4.50 K/uL MONOCYTE ABSOLUTE 1.46 (H) 0.10 - 1.30 K/uL EOSINOPHIL ABSOLUTE 0.00 0.00 - 0.70 K/uL BASOPHILS ABSOLUTE 0.10 0.00 - 0.20 K/uL IMMATURE GRANULOCYTES ABSOLUTE 0.87 (H) 0.00 - 0.03 K/uL COMPREHENSIVE METABOLIC PANEL Result Value Ref Range SODIUM 134 (L) 136 - 145 mmol/L POTASSIUM 4.3 3.5 - 5.0 mmol/L CHLORIDE 100 98 - 107 mmol/L CO2 7 (L) 22 - 29 mmol/L CALCIUM 10.9 (H) 8.6 - 10.2 mg/dL BUN 7 6 - 20 mg/dL CREATININE 0.65 0.51 - 0.95 mg/dL GLUCOSE 139 (H) 74 - 99 mg/dL TOTAL PROTEIN 9.3 (H) 6.7 - 8.6 g/dL ALBUMIN 5.4 (H) 3.5 - 5.2 g/dL BILIRUBIN TOTAL 0.8 0.3 - 1.2 mg/dL ALKALINE PHOSPHATASE 195 (H) 35 - 104 U/L AST 15 <33 U/L ALT 10 <34 U/L GFR >60 >=60 mL/min/1.73 sq meter ANION GAP 27 (H) 8 - 16 mmol/L POC GLUCOSE Result Value Ref Range GLUCOSE POC 128 (H) 74 - 99 mg/dL SPECIMEN SOURCE, GLUCOSE POC Whole Blood URINALYSIS WITH REFLEX MICROSCOPIC Result Value Ref Range COLOR UA Yellow Pale to Dark Yellow CLARITY UA Slightly Cloudy (A) Clear SPECIFIC GRAVITY UA 1.020 1.003 - 1.035 PH UA 5.0 5.0 - 8.0 LEUKOCYTE ESTERASE UA Negative Negative NITRITE UA Negative Negative PROTEIN UA 3+ (A) Negative GLUCOSE UA 1+ (A) Negative KETONES UA 2+ (A) Negative UROBILINOGEN UA Normal <2.0 mg/dL BILIRUBIN UA Negative Negative BLOOD UA 1+ (A) Negative WBC UA 3-5 (A) 0 - 2 /hpf RBC UA 3-5 (A) 0 - 2 /hpf BACTERIA UA Negative Negative /hpf EPITHELIAL CELLS, URINE 6-10 (A) 0 - 5 /hpf POC GLUCOSE Result Value Ref Range GLUCOSE POC 134 (H) 74 - 99 mg/dL SPECIMEN SOURCE, GLUCOSE POC Whole Blood BSUS 01/29/23: vertex, CLARA 9.20cm, MVP 3.33cm PNC US 01/25: ceph, CLARA 17.4cm, MVP 8.3cm, NST reactive PNC US 01/21: ceph, EFW 2585g (89%), AC 98%, anterior placenta, MVP 6.2cm, CLARA 16.2cm Status: FHT: 180, mod variability, no accels, int spontaneous decels [place]: silent Diabetes Checklist - Diagnosed at 13 years old - Managed outside by Dr. Sanches - Pre- regimen T slim and dexcom automode - Last DKA Fall 2021 - Hypoglycemic awareness at 60s - Last dilated eye exam: >5 years ago - Last EKG: unknown, ordered 08/2022 - Evidence of end organ damage: none - TSH: ordered - Hgb A1c: 5.6% (08/2022) - Baseline PEC labs: normal 08/2022 Assessment: Chey Menjivar 27 y.o. at 34w3d Recommendations: Suspected DKA, secondary to concern for sepsis - AF, tachycardic, hypertensive - Reports N/V/fatigue x3days - History of gastroparesis, prescription for scopolamine patch which has helped - No improvement s/p zofran, scopolamine patch and 1L LR bolus - Labs significant for leukocytosis (WBC 20.2), AG 27, K 4.3 - Glucose 134>128 - Covid, Influenza, RSV pending - LDH, LA, blood cultures pending - UA noninfectious, 2+ ketones - Continue fluid resuscitation with 2L additional LR, then LR with K at 250cc/hr - Repeat CBC, CMP, LA q4hrs - Follow up blood cultures, LDH, LA, uric acid - Start Vanc/Zosyn (29pm) - Will discuss with ICU about transfer due to abnormal labs and vital signs requiring higher level of care status: - cEFM - NST non-reactive with spontaneous decels - BSUS: vertex, CLARA 9.20cm, MVP 3.33cm 3. T1DM - A1c 5.6% (08/2022) - 24hr TUP 407 baseline per MFM - Glucose 120s-130s - Humalog pump + Dexcom CGM, see above for most recent settings, adjusted 01/20/23 - Continue current pump regimen at this time 4. Hx CS - Planning RCS 5. Hx RPL 6. Elevated blood pressure - Reports nausea, vomiting, fatigue - The range of BP in the last 24 hours is: BP: (106-157)/(46-104) - Patient denies history of elevated blood pressure - Labs pending 7. labs - GBS pending collect, patient somnolent and did not consent to exam at this time - Blood type: T&S pending collect, Opos per outside records - Rubella immune, HIV neg, HBV neg, RPR neg Discussed with Dr. Marino, [facility] Plan: - Continue fluid resuscitation with 2L additional LR, then LR with K at 250cc/hr - Repeat CBC, CMP, LA q4hrs - Follow up blood cultures, LDH, LA, uric acid - Monitor blood pressure - Continue Vanc/Zosyn - Consult ICU Fellow Erinn Roberto MD PGY-2 PATRON ATTENDANT Pager: [phone] Pager: [facility] Attending Addendum: The patient was seen and evaluated by myself and the resident/CASINO BEVERAGE SERVER. Agree with the findings and plan as documented above. All pertinent questions addressed and answered. Chief Complaint: complicated by the aforementioned concerns (DM type I, DKA). Primary OB: Dr. Velazquez Personally saw and evaluated Ms. Menjivar on the morning of 01/30/2023 with 23 hours of consultation. Iwas consulted by Dr. Morley, OB hospitalist. Ms. Menjivar's primary range management specialist is Dr. Velazquez. Ms. Menjivar was resting this morning. I confirmed the history of present illness as documented above with her significant other. She has been followed in our maternal- medicine clinic for complicated by type 1 diabetes. She has been generally well controlled. Over the past few days shenoted increased nausea and vomiting. Due to this being intractable she presented to our facility and was found to have laboratory changes consistent with diabetic ketoacidosis (anion gap of 27, positive beta hydroxybutyrate) as well as exam findings consistent with this (tachycardia, volume depletion). Potassium was within normal limits at 4.3 and glucose was mildly elevated at 139. I recommended treatment for diabetic ketoacidosis including following: -Admission to the intensive care unit. I spoke with the ICU fellow. -Volume repletion. Anticipated volume deficit of around 7-1/2 L. I recommended initial bolus of 2 to 3 L of lactated Ringer's followed by infusion at 250 cc/h. Urine output is adequate and pulmonary edema is unlikely. -Monitoring of electrolytes: Total body potassium would be expected to be low. With initiation of IV insulin I would expect serum potassium to drop and replacement would be necessary -Insulin pump is unlikely to be effective given volume depletion. I recommended initiation of insulin drip with goal to keep glucose under 250. - monitoring: heart tracing demonstrates tachycardia and decelerations. I recommended against delivery as correction of maternal physiology is the recommended treatment for abnormal heart tracing the setting of diabetic ketoacidosis. -Although Ms. Menjivar does have a few mildly elevated blood pressures, physiologic status hyperdynamic at this point due to volume depletion and diabetic ketoacidosis. Low suspicion for preeclampsia atthis time. -Due to tachycardia and volume depletion, Ms. Menjivar activated a sepsis alert. She had no focal evidence suggestive of infection. However, given the potential increased risk of maternal and offspring morbidity mortality with delaying treatment of sepsis, broad-spectrum antibiotics were started empirically pending culture results. On the morning of 01/30/2023, Ms. Menjivar is resting comfortably. Review of the heart tracing demonstrated improvement in tachycardia with baseline heart tracing 150s with moderate variability, no recurrent decelerations. I discussed the plan of care with ICU team and recommended continuing the plan of care as above with the exception that her IV fluids be increased from 125-2 100 to 250 cc/h to continue with volume repletion. Her anion gap is closed and beta hydroxybutyrate is decreasing. Disposition: Anticipate her remaining in the intensive care unit today with volume repletion and electrolyte correction per the DKA pathway. Hopefully will be able to transition back to subcutaneous insulin and transferred to antepartum tomorrow. The maternal anion gap is closed, at this point, if worsening of the heart tracing is noted such that delivery would otherwise be indicated, it would be reasonable to proceed with delivery for indications. I would recommend that this be discussed with maternal- medicine prior to her decision to delivery being made. Zbigniew Marino MD MS FACOG Maternal Medicine 01/30/2023 On the day of the visit, I spent 80 minutes providing care to this patient including Preparing to see the patient, Obtaining and/or reviewing separately obtained history, Performing a medically appropriate examination and/or evaluation, Counseling and educating the patient/family/caregiver, Documenting clinical information in the medical record, and Independently interpreting results and communicating results to the patient/family/caregiver (not separately reported). Complexity of decision making high due to complicated by the aforementioned concerns. Thenature of the counseling and coordinations of care is as documented above. documented in this encounter OR Notes * Operative Report - Enrico Casillas MD - 02/07/2023 6:03 AM CDT Section Operative Note Date of Procedure: 02/07/2023 Procedure: repeat low transverse section via Pfannenstiel incision Pre-operative Diagnosis: 1. 27 y.o. with IUP @ 35w5d 2. NRFHT 3. Contractions 4. T1DM 5. History of Prior CS 6. Preeclampsia without severe features 7. Recurrent Loss Post-operative Diagnosis: same Senior Bioinformatics Scientist: Zbigniew Marino MD Surgeon: Enrico Casillas MD Acid Filler: Kelli Flores MD Anesthesia: spinal QBL: 550 mL Urine Output: clear urine in Mendoza bag after procedure Specimen(s): Placenta for pathology Antibiotics: 2g Ancef Operative Complications: none Uterotonics given: None Indications: Please see pre-op diagnosis above, H&P and most recent progress notes for further details. Findings: Gestational Age: 35w5d Date of Delivery: 02/07/2023 Time of Delivery: 5:28 AM [place] Sex: Female Delivery Type: , Low Transverse Delayed Cord Clamping: Yes (Refer to Delivery Summary) Weight: 3130 g (6 lb 14.4 oz) 1 Minute: 7 5 Minutes: 9 Team present at delivery? yes Nuchal cord: none Placenta: spontaneous removal; complete, 3 vessel cord, membranes intact Maternal anatomy: uterus, tubes and ovaries appeared normal Procedure Details After informed consent, vaginal preparation, placement of Mendoza, SCDs, and appropriate anesthesia as listed above, the patient was prepped and draped in the usual fashion. Appropriate preoperative antibiotics were given. A Pfannenstiel skin incision was made with the scalpel and carried down through the subcutaneous tissue to the fascia sharply. The fascia was then incised in the midline, and this incision was extended laterally with the use of Abdalla scissors. The fascia was from the underlying rectus tissue superiorly and inferiorly. The peritoneum was identified entered bluntly. Peritoneal incision wasextended with good visualization of bowel & bladder and a bladder blade was placed. A low transverse uterine incision was made with the scalpel. This incision was extended digitally in the cephalad-caudad position. Infant was delivered as noted in the findings above. The umbilical cord was doubly clamped and cut & the infant was handed to the nurse. The placenta was removed as noted above. The uterus was exteriorized and cleared of clot & debris. The uterine incision was approximated with 0 biosyn in a running, locking stitch in a single layer.The posterior cul de sac was manually cleared of clot and blood. Hemostasis was observed. The uterus was returned to anatomic position. The pericolic gutters were manually cleared of clot and blood. The uterine incision was re-inspected & noted to be hemostatic. The peritoneum was closed with 2-0 chromic in a running stitch. The subfascial tissues were noted to be hemostatic. The fascia was then closed with 0 looped maxon in a running stitch. The subcutaneous tissue was irrigated & madehemostatic with the Bovie. The skin was closed with 4-0 polysorb, followed by a sterile dressing. Instrument, sponge, and needle counts were correct times three per nursing. The patient tolerated the procedure well and was taken to recovery in stable condition. Aura Flores MD PATRON ATTENDANT Resident, PGY-4 Pager #: [phone] Uncomplicated. We operated as co-surgeons throughout. Enrico Casillas MD OB Hospitalist documented in this encounter Miscellaneous Notes * Care Plan - Viridiana Wayne RN - 02/13/2023 11:13 AM CDT Pt normoglycemic this morning with fasting AC, and dosed with Humalog according to MAR with breakfast, with PP AC also normoglycemic. Ensured pt understands medication/insulin regimen and importance of checking blood sugars after d/c. * Note - Celina Teran PCT - 02/11/2023 9:35 AM CDT Mom states she plans to pump and give and continue to mix feed until milk supply comes in. Mom and baby to be discharged today. Celina Teran, ZACHARY, CFSD, CLC, CBA, CHW, SRN * Care Plan - Diane Machado RN - 02/11/2023 5:57 AM CDT VSS. Up independently and voiding without difficulty. Fundus firm, lochia light, incision well-approximated and without drainage. Pain well controlled with ibuprofen and acetaminophen. Glucose levelshave ranged from 247 to 363 overnight. Will continue to monitor. * Note - Eliane Whyte RN - 02/10/2023 12:56 PM CDT This note was copied from a baby's chart. follow up: checked in on mother who states that is going well. Mother pumped after last feed to see how much she had. She is concerned that one side did not produce milk during pumping session. Reassured mother that baby is always better at getting colostrum out than pump is. Provided syringes for feeding pumped colostrum to baby. Encouraged mom to call for further assistance as needed, otherwise to follow up in am. time: 10 minutes * Care Plan - Diane Machado RN - 02/10/2023 5:49 AM CDT VSS. Up independently and voiding without difficulty. Fundus firm, lochia light, incision well-approximated and without drainage. Pain well controlled with ibuprofen and acetaminophen, with roxicodone x1 given overnight. Glucose levels tending to be hyperglycemic overnight, highest 337 at 02:00AM. Will continue to monitor. * Note - Neeta Fierro RN - 02/09/2023 9:10 AM CDT This note was copied from a baby's chart. note: S: Followed up with family. Mom is currently on right side when LC arrived. Mom reports a Developmental Electronics Assembler is to see her to discuss diet while . O: Mom is a Type 1 Diabetic. Baby has lost 7.25% of weight. Breasts- tissue soft Nipples- everted, compressible Observed baby at both breasts in the starter hold with alveolar compression, rhythmic sucking, and audible swallowing. Baby easily latching at this time. Discussed positioning, sustaining a deep latch, signs of effective milk transfer, and satiety. Reviewed [id number] benefits. Reviewed diet and nutrition for mom. A: progressing with easy latching at this time. P: Breastfeed baby with all feeding cues or at least every 2-3 hours, with 8-12 feedings in 24 hours. Supplement as ordered. Follow HCP instructions. Pump with some feedings while supplementing. Increase [id number]-mv-[id number] time between feedings to stimulate feeding cues. Keep a diary of feedings and diapers. Zone # on board. Will follow up prior to discharge. Time: 30 minutes * Care Plan - Мария Argueta RN - 02/09/2023 5:30 AM CDT VSS. Up ad cleve. Fundus firm U/1 scant bleeding. Pain controlled with motrin, tylenol, simethicone, and junior. Blood sugars stable this shift (132, 133, 142, 106). UO adequate. Pt showered this shift. Incision LUCÍA C/D/I. * Care Plan - Jazmin Steele RN - 02/08/2023 7:52 PM CDT VSS. Good urine output and up to void independently. Fundus firm, lochia light, incision well-approximated. Dressing removed and sutures are intact. Scant amount of drainage on left side of incision.Peripad in place over incision. Educated patient on hygiene for post C/S. CHG soap at patient bedside and explained the importance. Pain well controlled with ibuprofen and acetaminophen. Simethicone given for gas/air pain. Patient had a hypoglycemic episode at 1700. The hypoglycemic protocol was followed and the protocol is now resolved. Progressing towards daily goals. Pathway Day 2 (INTERDIS PW: HYPERGLYCEMIA, ADULT) Metabolic: Maintain glucose between 110-180 mg/dL when receiving subcutaneous insulin and between 110-160 mg/dL when receiving IV insulin. 02/08/20231950 by Jazmin Steele RN Outcome: Not Met Variance HYPOGLYCEMIA 02/08/20231817 by Jazmin Steele RN Outcome: Not Met * Note - Ml Gordillo RN - 02/08/2023 9:19 AM CDT This note was copied from a baby's chart. Note: follow-up visit. Baby is just over 24 hours of age at this time, and glucose monitoring is complete. Baby has been bottle feeding while glucose monitoring. Electric breast pump set up at the bedside. Mother states she has been pumping with feeds. Upon entering room, father holding baby onthe couch. Discussed feeding plans with mother. Patient reports she would like to breastfeed, but baby becomes fussy at the breast, and mother is worried about her burning to many calories. Discussed paced bottle feedings. Discussed skin to skin before feedings. CLC offered to help with latch check/assistance. Mother wanting to reach out with next feeding for assistance. Zone number placed on whiteboard. Encouraged to reach out with next feeding. Ml Gordillo RN, BSN, CLC * Care Plan - Isaura Olmedo LMSW - 02/07/2023 6:29 PM CDT Social work consult received due to patient???s Seguin score. ALONDRA met with pt alone to discuss score and provide post education. The following PPD screener is all self reported by the patient. The patient does not have a history of depression. 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 Patient reports that her family does not have a history of depression. Patient reports that her family does not have a history of PPD. Patient denies history of self harm and denies current thoughts of self harm. Patient denies history of suicidal ideation and denies current thoughts of suicidal ideation. Patient???s support network includes FOB. ALONDRA educated patient on signs/symptoms of PPD and recommended that she also review these with a trusted loved one and give them permission to speak with patient should they notice her exhibiting symptoms. ALONDRA also provided a list of counselors in the [place] area who are qualified to treat PPD as well as the Warmline and directions for use. Initial Discharge Planning Assessment completed. Introductory Care Management letter given. Care Management visited with MOB, and discussed Care Management role and discharge planning. Permission granted by patient to speak to everyone present in the room. Confirmed PHI# with pt/family member prior to conversation. Primary Emergency Contact: CHEY MENJIVAR, Baby (Astrid Maza) will reside at [address] [place] [address] with MOB and FOB at discharge. Father of Baby is involved. Prior to , family involved with no services in home. Mother of baby has WIC. Mother of baby does not have Food [place]. SW provided a SNAP application per pt request. Mother of baby has breast pump. Family has a crib. Family has a car seat. [employer] verified as: MOB has not yet decided on a PCP. SW provided a list at bedside. Baby???s insurance verified as Medicaid and baby will be added to plan of Medicaid. Discussed discharge goals and possible discharge needs including a SNAP application. MOB and FOB have unknown employment. Support network for the family includes FOB. SW provided pt with new parent resources including Nurses for Newborns information, post- depression screening tools, and a list of local parenting classes/assistance programs. Care Management contact information provided. Care Management will continue to follow and assist asneeded. Social work has completed the consult for the Seguin score and provided post resources. There are no further concerns needing to be addressed at this time. Baby can discharge home with MOB once medically cleared. Isaura Olmedo LMSW, 02/07/2023 6:29 PM [id number] Problem: Discharge Planning Goal: Identify discharge needs upon admission and through discharge Description: Outcome: Progressing * Care Plan - Kitty Grimm RN - 02/07/2023 6:08 PM CDT Pathway Day 0 - 24 Hours - Current (INTERDIS PW: ) Hemodynamics: Maintains temperature greater than 96.7F and less than 100.4F, heart rate 50-110 beats per minute, unlabored respirations at 10-29 per minute, BP less than or equal to 160/100 and greater than or equal to 90/50; no evidence of syncope. Outcome: Met Pain Management: Demonstrates understanding of pain scale, verbalizes pain reduction, and determines realistic and acceptable pain level/goal (0-10) that allows for maximal function with ADLs and participation in self and care. Outcome: Met Activity/Rehab: Dangles at side of bed within 6 hours of surgery; ambulates with assistance within 12 hours of surgery, including one or more walks and up in chair, once full use of lower extremities. Outcome: Met Bladder & Bowel Movement: Maintains urine output of 30 mL/hr while indwelling catheter is in place; catheter is removed at 12 hours post-operatively once ambulatory and urine output adequate; voids within 6 hours of catheter removal. Outcome: Met Nutrition Management: Tolerates clear oral fluids without evidence of nausea, vomiting, or gastric distention; diet advanced as tolerated. Outcome: Met : : Attempts to breastfeed q 2-3 hours; demonstrates effective latch. Outcome: Met Maternal Attachment: Maternal Attachment: Displays maternal attachment behaviors as evidenced by participating in infant care, participating in learning infant care, holding infant, speaking to . Outcome: Met Reproductive: Lochia Rubra with absent to minimal clotting, no trickling or gushing of blood, non-malodorous and less than one peripad per hour saturated. Uterus firm and midline ranging from 1cm above the umbilicus (at 12 hours) to 1 cm below the umbilicus (by 24 hours) . Outcome: Met Surgical Site: Drainage on dressing absent to scant and sutures/jf well- approximated (if visible). Outcome: Met Neurovascular: Free of signs and symptoms of DVT/VTE. Outcome: Met * Note - Neeta Corea RN - 02/07/2023 4:54 PM CDT This note was copied from a baby's chart. Note: S: consult per pathway, MD order, mother's request, first time mom. PatientComplaint: concerns: near term, low BS, mom typeI DM, OBJECTIVE: Mom states her goal is to breastfeed her baby. BFHx: G1 had bad experience w/ LC and gave up [id number] Menjivar was born [birth year]23 5:28 AM. Gestational Age: 35w5d . Last documented Weight: 3130 g (6 lb 14.4 oz) (Filed from Delivery Summary) (02/07/23527). This is a change of 0% from the 's weight. .Attending provider: Georges Rehman MD Patient Active Problem List Diagnosis Code Single liveborn, born in hospital, delivered by section Z38.01 infant P07.30 Patient Active Problem List Diagnosis Code Cannabinoid hyperemesis syndrome R11.2, F12.90 Constipation K59.00 Depression F32.A Diabetic gastroparesis E11.43, K31.84 Diabetic ketoacidosis associated with type 1 diabetes mellitus E10.10 Intractable vomiting R11.10 Intractable vomiting with nausea R11.2 Type 1 diabetes mellitus affecting , antepartum O24.019 Type 1 diabetes mellitus with hyperglycemia E10.65 Type 1 diabetes mellitus without complication E10.9 MFMtx/OBH: DKA (resolved), T1DM O09.90 Starvation ketoacidosis T73.0XXA, E87.29 Mild pre-eclampsia in third trimester O14.03 Infant's Labs: Serum BS earlier today was 6 as well as grunting and tachypnea Lab Results Component Value Date GLUCPOC 62 02/07/2023 Baby has been lethargic and easily falls asleep and tires at breast. Started mom pumping 8x/24 hours emphasizing not to skip night pumps, was able to get a few drops at 11 hrs of age. Urine Output: yes and see Infant/Peds I/O Flowsheet Shield Size: 20mm was given to mom in case needed it. Given andreviewed handouts from [place] [employer]: How to KnowYour Breastfed Baby is Getting Enough Milk and explained. number on board and encouraged mom tocall with questions and assistance. Assistance: Feeding plan to pump, feed baby, Reassured mom that when baby gets over low BS and transient periods of respiratory distress can start putting baby to breast again, but meanwhile need to protect momssupply. FEEDING PLAN: Feeding Method: Bottle Feeding, Complimentary/supplementing Feeding: Expressed Breast Milk and Formula Type of Pump: [facility] hosp grade while inpatient Pumping to: Stimulate milk production, Supplement Expressed breast milk rather then formua Exclusively feed baby at least every 2-3 hours, with 8-12 feedings in 24 hours. Increase [id number] time between feedings to stimulate feeding cues. Keep a diary of feedings and diapers. Reviewed ways to get continued assistance with [facility]. Encouraged to attend Breast feeding with [facility] classes., our number and support group info left at bedsides Total time spent with patient: 30 minutes Neeta Corea RN, BSN, IBCLC * Care Plan - Fidel Hall RN - 02/03/2023 8:02 PM CDT Problem: Pain, Potential/Actual Goal: Verbalizes/displays acceptable comfort level or baseline comfort level Description: Outcome: Progressing Problem: Infection Risk/Actual Goal: Infection Risk/Actual: Infection prevention, control, or resolution by discharge Description: Outcome: Progressing Problem: Safety/Fall Goal: Safety/Fall: Absence of fall, injury, harm during hospitalization Description: Outcome: Progressing Problem: Discharge Planning Goal: Identify discharge needs upon admission and through discharge Description: Outcome: Progressing Problem: Medications Goal: Absence of/Reduce Fall Risk r/t Medications Description: Patient is a fall risk because of medications (i.e. - BP meds, CV/STRAIGHTEDGE WORKER meds, seizure meds, diuretics, pain meds, psych meds, current chemotherapy). Potential Interventions: 1. Orthostatic VS q day; educate to dangle before rising 2. Educate patient and family on how medications increase patient's fall risk (may make dizzy, lower BP, etc) 3. Do first dose education with all med/dosage changes. Document education 4.Reassess fall risk whenever a medication is changed/added (sleeping pill, pain med, BP med dose adjustment, etc) 5. Activate bed or chair alarm while in bed or up in chair 6. Limit combination of PRN meds whenever possible (i.e. - space out narcs and benzos) 7. Schedule frequent toileting for patients on diuretic to help prevent emergencies 8. Consult pharmacy to review meds and make recommendations (determine best timing, possible dosingadjustments, or identify other education that might be appropriate for patient) 9. Use floor mats next to bed and in front of chair when patient left unattended 10.Do not leave patient unattended while toileting or showering 11.Use appropriate assistive equipment (walker, shower chair, etc) 12. Include information on high risk medications, last doses, and patient tolerance in hand-off communication Outcome: Progressing Problem: Mental Status/LOC/Awareness Goal: Absence of/Reduce Fall Risk r/t Mental Status/LOC/Awareness Description: Patient is a fall risk because of mental status. A patient with altered mental status is automatically at high risk for falls. Potential Interventions: 1.Hourly rounding 2. Do not leave patient unattended while toileting or showering 3. If patient is lethargic/unable to follow directions - use bedpan 4. Place patient close to nurse's station if possible 5. Provide appropriate diversion activities (i.e. - coloring, crosswords, activity blanket, towel folding, books) 6. Activate bed or chair alarm while in bed or up in chair 7. Encourage family to stay with patient 8. Frequent fall reeducation and reorientation 9. Specialty low bed 10. Use floor mats next to bed and in front of chair when patient left unattended 11. Collaborate with care team regarding how to determine reversible causes of mental status changeand eliminate cause 12. Patient sitter 13. Appropriate lighting for day/night Outcome: Progressing Problem: Volume/Electrolyte Status Goal: Absence of/Reduce Fall Risk r/t Volume/Electrolyte Status Description: Patient is a fall risk due to volume/electrolyte status (i.e. - electrolyte imbalances, nausea/vomiting, NPO, IV fluids). Potential Interventions: 1. Ensure blood sugar is checked at appropriate intervals and insulin dosing is given as ordered 2. Provide patient with an emesis basin or vomit bag (may need more than one at bedside) 3. Assess length of IV and/or O2 tubing if applicable 4. Ensure IV fluids are given as ordered for NPO patients to maintain hydration 5. Administer medications for nausea and vomiting as needed Outcome: Progressing Problem: Cardiovascular Goal: Achieve optimal cardiovascular function by discharge or maintain baseline function Outcome: Progressing Problem: Obstetric Goal: Remain free of preventable injury/complications and achieve optimal health throughout , process and period Outcome: Progressing Problem: Mobility Goal: Absence of/Reduce Fall Risk r/t Mobility Deficits Description: Patient is a fall risk because of mobility deficits. A patient with mobility deficits is automatically at high risk for falls. Potential Interventions: 1. Schedule patient toileting to avoid emergency trips to the bathroom 2. If available, use floor mats next to bed or in front of chair when up 3. If applicable, remove floor mats when getting patient up and replace when leaving patient 4. Assistive devices as required, educate patient on correct use of device (walkers, shower chairs,lift equipment, etc.) 5. Exit bed on patient's strongest side 6. Gait belt easily accessible 7. Activate bed or chair alarm while in bed or up in chair 8. Get order for PT consult if appropriate 9. Patient requires 2 assist - bedpan and bed bath if 2 staff not available, bedside commode if 2 staff are available entire time 10. Slow progressive position changes if patient experiencing dizziness Outcome: Progressing Problem: Toileting Needs Goal: Absence of/Reduce Fall Risk r/t Toileting Needs Description: Patient is a fall risk because of toileting needs (i.e. - IV fluids, UTI, diuretics, frequency, diarrhea). Potential Interventions: 1. Schedule toileting at frequent intervals based on patient's needs (i.e. - hourly, every 2 hours) 2. Frequent rounding between toileting 3. Bedside Commode 4. Activate bed or chair alarm while in bed or up in chair 5. Encourage male patients to use urinal 6. Educate patient on fall risk, use of grab bars, and to call for assistance 7. Assess length of IV and/or O2 tubing if applicable 8. Use bedpan or lift equipment if patient also has other fall risk factors (i.e. - mobility) Outcome: Progressing Problem: Behavior Goal: Absence of/Reduce Fall Risk r/t Behavior Description: Potential Interventions: 1. Specialty low bed 2. Use floor mats next to bed and in front of chair when patient left unattended 3. Engage patient in daily routine/activity 4. Provide appropriate diversion activities (i.e. - coloring, crosswords, activity blanket, towel folding, books) 5. Alcohol withdrawal protocol/CIWA assessment as ordered 6. Encourage family to stay with patient 7. Use appropriate de-escalation techniques 8. Consulting pharmacy to review meds and make recommendations (determine best timing, possible dosing adjustments, or identify other education that might be appropriate for patient) 9. Utilize relaxation channel to soothe patient 10. Patient sitter 11. Appropriate lighting for day/night Outcome: Progressing Problem: Nutrition/Endocrine Goal: Achieve optimal nutrition and fluid status to meet metabolic needs throughout hospitalization Outcome: Progressing Problem: Gastrointestinal Goal: Achieve optimal gastrointestinal function by discharge or maintain baseline function Outcome: Progressing Problem: Musculoskeletal Goal: Achieve optimal musculoskeletal function by discharge or maintain baseline function Outcome: Progressing Problem: Skin Goal: Maintain skin integrity and/or promote wound healing by discharge Outcome: Progressing Problem: Cognitive/Perceptual/Neuro Goal: Achieve optimal cognitive/perceptual/neurological function by discharge or maintain baseline function Outcome: Progressing Problem: Peripheral Neurovascular Goal: Achieve optimal peripheral neurovascular function by discharge or maintain baseline function Outcome: Progressing Problem: Respiratory Goal: Achieve optimal respiratory function by discharge and/or maintain baseline function Outcome: Progressing * Care Plan - Delia Chavarria ELECTRIC METER READER - 02/01/2023 12:03 PM CDT Care Management Initial Assessment Initial Discharge Planning Assessment completed. Discussed Care Management's role and Discharge planning. Discharge Plan: Home, no needs. Does the patient have family and/or a caregiver that is willing, able and available to assist if needed? Yes - Name/Relation:Karen Menjivar, mother Comments: Pt is followed by [facility]. Pt will follow up with primary OB, Fidel Hair MD in [place], [place]. Patient Discharge Planning Goal: Medical stability Patient will potentially discharge to a SNF/NH? No Care Management visited with: patient and other(Pt's mother) via in person. Prior to admission, patient resides at: own home. Prior to admission, living arrangements: significant other and other -6 yo daughter . Prior to admission, patient's functional level:independent; uses N/A for mobility; needs assistancewith iADLs: N/A Prior to admission, the patient has the following DME? N/A Services in the home: none Serviced by NA Receives hemodialysis? No Emergency contact(s): Extended Emergency Contact Information Primary Emergency Contact: Karen Menjivar Mobile Relation: Mother Preferred language: [place] Mental Health Professional needed? No Insurance coverage verified: Payor: MEDICAID / Plan: MEDICAID [place] / Product Type: Medicaid / Prescription coverage: yes Preferred Pharmacy verified: [id number] - [place], [place] - [address] [facility] Employment Status: not employed Has MS Benefits: no PCP verified as: No primary care provider on file. Pt reports her PCP is with [facility] in [place], [place], but does not remember his name. Patient has not had a stay at an acute care hospital in the last 30 days. Recent Falls?: Last Known Fall: No falls Plan for transportation at discharge: Mother or fiance. Care Management contact information provided. Care Management will continue to follow and assist asneeded. NADIA [facility] [phone] Problem: Discharge Planning Goal: Identify discharge needs upon admission and through discharge Description: Outcome: Progressing * Care Plan - Isaura Olmedo LMSW - 01/30/2023 3:44 PM CDT SW Attempted to assess pt at bedside, but pt was asleep. Pt significant other was at bedside, but is not listed as an emergency contact. SW was unable to assess pt with S/O. SW called pt mother on the emergency contact list but phone went straight to . SW left a VM asking for a call back. SW/CM will continue to follow. Isaura Olmedo LMSW, 01/30/2023 3:47 PM [id number] Problem: Discharge Planning Goal: Identify discharge needs upon admission and through discharge Description: Outcome: Progressing * Care Plan - Anali Winchester RN - 01/30/2023 3:24 PM CDT End of Shift Note: Family updated per CCM Neuro: remains oriented X4 with improving alertness, at present asking for ice chips tolerating w/ovomiting Resp: WNL CV: sinus tachycardia GI: persistent nausea with improving emesis this shift, refuses antiemetics ordered they don't help Endocrine: remains on insulin drip with IV dextrose source Remember that if a patient has poor perfusion (cold fingers, TTM, or edema), do not obtain a capillary glucose sample. Instead obtain a venous or arterial sample and run it through the POC Nova glucose meter. : voiding per bedpan Skin: undress and assess per Gretta Rn and Leyla RN Patient Goals Met: remains safe this shift * Care Plan - Gagandeep Neumann RN - 01/30/2023 11:53 AM CDT CM met bedside w/ pt, SO, and 2 RN's to complete assessment, provide MFA & PCP referral(left onbedside table) but pt and SO are both asleep. CM requested if it would be appropriate to call mother as SO would be the best point of contact and requests CM to return at a later time. ALONDRA Leigh notified. Gagandeep Neumann RN, 01/30/2023 11:55 AM Problem: Discharge Planning Goal: Identify discharge needs upon admission and through discharge Description: Outcome: Progressing * Treatment Plan - Nguyen Govea - 01/29/2023 4:23 PM CDT Images from the original note were not included. [facility] Vaginal Protocol [facility] Approved by: [facility] - Medical Executive Committee Approval Date: 09/17/2022 ORDERS ARE ENTERED ???PER PROTOCOL?? Follow this protocol for all induction, augmentation and spontaneous labor patients. Enter the protocol in the patient's electronic health record using smartphrase: .vaginalbirthprotocol Orders for Care at Initial Presentation: Initiate Labor, Delivery and -vaginal pathway Notify provider after initial assessment Vital signs per unit policy Evaluate cervical status pelvic examination Up ad cleve Continuous external electronic monitoring Intake and output q 8 hours Scale weight on admission Clear liquid diet as indicated Insert straight catheter for bladder distention if patient unable to void Verify informed consent Patient may assume a position according maternal and tolerance Complete hemorrhage risk assessment on admission. See [facility] PPH Procedure Guidelines Verify that patient is given antibiotics for Group B strep if indicated Education on smoking cessation and second-hand smoke avoidance FULL CODE Laboratory Orders: Cord blood evaluation if mother's blood is O positive or Rh negative CBC without differential (QRI330) on every patient admitted to Labor & Type and screen (DVX996); unless patient is identified as high risk via the Hemorrhage Risk Assessment, then obtain: type and screen ([id number]), prepare and hold ([id number]) Medication Orders If not already in place, establish peripheral IV access and infuse Lactated Ringer's solution at 125 mL/hour IV Sodium chloride 0.9% (normal saline) flush 5 mL every 12 hours when locked Sodium chloride 0.9% (normal saline) flush 5 mL PRN before and after medication or to verify line patency Terbutaline (BRETHINE) 0.25 mg injection SQ, one time PRN, for tachysystole in the presence of Category 2 or Category 3 FHR tracing after consultation with provider Ondansetron (ZOFRAN) 4 mg IV, every 6 hours PRN Penicillin g potassium load dose 5 million units, IV, ONE TIME ONLY if GBS positive and NO ALLERGIES Penicillin g maintenance dose 2.5 million units, IV, EVERY 4 HOURS if GBS positive and NO ALLERGIES Lidocaine 1% (XYLOCAINE) injection ONE time, PRN for perineal repair Nursing Communication Orders: INTRAUTERINE RESUSCITATION If the heart rate (FHR) pattern is indeterminate (category II) or abnormal (category III), the following measures will be initiated based on maternal- response: Lateral positioning IV fluid bolus of 500 mL Lactated Ringer's solution Discontinuation of oxytocin if infusing Removal of Cervidil Modification of maternal pushing efforts during second stage labor TREATMENT OF TACHYSYSTOLE Normal (Category I) FHR Pattern Maternal repositioning (left or right lateral position) IV fluid bolus of approximately 500 mL lactated Ringer's solution If uterine activity has not returned to normal after 10 min, decrease oxytocin rate by at least half; if uterine activity has not returned to normal after 10 more min, discontinue oxytocin until uterine activity is no more than five contractions in 10 min Indeterminate (Category II) or Abnormal (Category III) FHR Pattern Discontinue oxytocin Maternal repositioning (left or right lateral position IV fluid bolus of approximately 500 mL of lactated Ringer's solution Initiate an OB Rapid Response emergency page if patient has a Cat III FHR Pattern Resumption of Oxytocin Administration After Discontinuation Due to Indeterminate (Category II) or Abnormal (Category III) FHR Pattern and/or Tachysystole If the infusion has been discontinued for less than 30 minutes, the FHR is normal (Category I) and uterine activity has returned to normal, oxytocin may be restarted at no more than one half of the rate that resulted in the indeterminate (Category II) or abnormal (Category III) FHR and/or uterine ta chysystole and then increased based off the provider's initial Pitocin orders. If the infusion has been discontinued for more than 30 minutes, the FHR is normal (Category I) and uterine activity has returned to normal, oxytocin may be restarted as if it is being initiated for the first time. For example, if the low-dose Pitocin regiment was ordered for a patient's induction, it would be restarted at 1 or 2 mU/min PRE-OPERATIVE CARE FOR FOLLOWING FAILED LABOR: In-patient Anesthesia consult Continuous monitoring via current method until abdominal prep Mendoza catheter if not already in place Patient may assume a position in bed according to maternal and tolerance Prep surgical site Verify informed consent Diet: strict NPO If not already in place, establish peripheral IV access and infuse lactated Ringer's solution at 125 mL/hour Place intermittent pneumatic compression device Laboratory Orders for following Failed Labor: Type and screen CBC with differentia [facility] Adult Influenza and Pneumococcal Vaccine Protocol [facility] Approved by: [facility] - Medical Executive Committee Approval Date: 03/19/2022 ORDERS ARE ENTERED ???PER PROTOCOL?? Enter the protocol in the patient's electronic health record using smartphrase: .flupneumoniavaccineprotocol Nursing Orders: Screening is performed on patients utilizing the best practice alert (BPA) in the electronic healthrecord (EHR). Nurse will review BPA with patient and document accordingly Give a copy of the appropriate Vaccination Information Sheet (VIS) form to the patient. A vaccine information sheet (VIS) can be printed from the link within the eMAR. Order adult vaccine (as indicated below) in the EHR Document the attending physician as the ordering/authorizing provider. Medication Orders: Influenza: Adults 18 years through 64 years old: flu vaccine 60 mcg/0.5 mL (1 dose) given IM one time only. OR Adults 65 years old and greater: quadrivalent (high dose) flu vaccine 240 mcg/0.7 mL (1 dose) givenIM one time only. Pneumococcal: The electronic health record best practice advisory (BPA) will direct the correct vaccine regimen, any questions contact credentialed provider or pharmacist Prevnar 20, 0.5 mL IM one time OR Pneumovax 25 mcg/0.5 mL IM one time (If available within hospital pharmacy) [facility] Pre-operative Protocol [facility] Approved by: [facility] - Medical Executive Committee Approval Date: 09/17/2022 ORDERS ARE ENTERED ???PER PROTOCOL?? Follow this protocol for all section patients (scheduled and unscheduled). Enter the protocol in the patient's electronic health record using Magazingarase: .cesareanbirthprotocol Nursing Orders: Initiate the Pathway Notify physician upon admission In-patient anesthesia consult Complete hemorrhage risk assessment on admission. See [facility] PPH Procedure Guidelines Full Code Vital signs per unit policy Electronic monitor Insert peripheral IV Insert mendoza catheter to bedside drainage Position patient according to patientl and tolerance Verify informed consent Diet: strict NPO Education on smoking cessation and second-hand smoke avoidance Prep surgical site Confirm heart rate immediately prior to abdominal prep Place pneumatic compression devices (If calf circumference exceeds 26 inches, contact physician foralternative therapy Laboratory Orders: Type and screen (antibody will be reflexively ordered on positive antibody screens) Based on PPH Risk level, for High risk- type and screen ([id number]), prepare and hold ([id number]) CBC with differential (Manual differential will be performed if appropriate) Medication Orders Lactated Ringer's solution at 125 mL/hr IV IV flush panel: Sodium chloride 0.9% (normal saline) flush 5 mL IV every 12 hours when locked Sodium chloride 0.9% (normal saline) flush 5 mL IV before and after medications or to verify line patency ceFAZolin (ANCEF) 2,000 mg, IV, PRE-PROCEDURE ONCE for patient weight less than 120 kg if NO ALLERGY ceFAZolin (ANCEF) 3,000 mg IV, PRE-PROCEDURE ONCE for patient weight greater than or equal to 120 kg if NO ALLERGY Azithromycin (ZITHROMAX) 500 mg IVPB, pre-procedure ONCE for failed labor or rupture of membranes For Post- hemorrhage (Physician consultation required before administration for appropriate medication selection): NOTE: If not entered by provider, medications are to be ordered by the pharmacist per protocol whennotified by labor and RN. Oxytocin in sodium chloride (PITOCIN) 20 unit/1,000 mL infusion IV at 999 mL/hr for excessive bleeding in the period Methylergonovine maleate (METHERGINE) 0.2 mg/mL (1 mL) injection IM as needed for excessive bleeding in the immediate period after consultation with resident or attending physician. Maximum of 2 doses every 15 minutes PRN Carboprost tromethamine (HEMABATE) 250 mcg/mL injection 1 mL IM as needed for excessive bleeding inthe immediate period after consultation with resident or attending physician. Maximum of8 doses Misoprostol (CYTOTEC) tablet 800 mcg per buccal, oral or rectum ONE TIME, PRN for excessive bleeding in the period after consultation with resident or attending physician Tranexamic Acid IVPB 1,000 mg, IV, ONE-time PRN after physician consultation [facility] Pre-operative Protocol [facility] Approved by: [facility] - Medical Executive Committee Approval Date: 09/17/2022 ORDERS ARE ENTERED ???PER PROTOCOL?? Follow this protocol for all section patients (scheduled and unscheduled). Enter the protocol in the patient's electronic health record using Magazingarase: .cesareanbirthprotocol Nursing Orders: Initiate the Pathway Notify physician upon admission In-patient anesthesia consult Complete hemorrhage risk assessment on admission. See [facility] PPH Procedure Guidelines Full Code Vital signs per unit policy Electronic monitor Insert peripheral IV Insert mendoza catheter to bedside drainage Position patient according to patientl and tolerance Verify informed consent Diet: strict NPO Education on smoking cessation and second-hand smoke avoidance Prep surgical site Confirm heart rate immediately prior to abdominal prep Place pneumatic compression devices (If calf circumference exceeds 26 inches, contact physician foralternative therapy Laboratory Orders: Type and screen (antibody will be reflexively ordered on positive antibody screens) Based on PPH Risk level, for High risk- type and screen ([id number]), prepare and hold ([id number]) CBC with differential (Manual differential will be performed if appropriate) Medication Orders Lactated Ringer's solution at 125 mL/hr IV IV flush panel: Sodium chloride 0.9% (normal saline) flush 5 mL IV every 12 hours when locked Sodium chloride 0.9% (normal saline) flush 5 mL IV before and after medications or to verify line patency ceFAZolin (ANCEF) 2,000 mg, IV, PRE-PROCEDURE ONCE for patient weight less than 120 kg if NO ALLERGY ceFAZolin (ANCEF) 3,000 mg IV, PRE-PROCEDURE ONCE for patient weight greater than or equal to 120 kg if NO ALLERGY Azithromycin (ZITHROMAX) 500 mg IVPB, pre-procedure ONCE for failed labor or rupture of membranes For Post- hemorrhage (Physician consultation required before administration for appropriate medication selection): NOTE: If not entered by provider, medications are to be ordered by the pharmacist per protocol whennotified by labor and RN. Oxytocin in sodium chloride (PITOCIN) 20 unit/1,000 mL infusion IV at 999 mL/hr for excessive bleeding in the period Methylergonovine maleate (METHERGINE) 0.2 mg/mL (1 mL) injection IM as needed for excessive bleeding in the immediate period after consultation with resident or attending physician. Maximum of 2 doses every 15 minutes PRN Carboprost tromethamine (HEMABATE) 250 mcg/mL injection 1 mL IM as needed for excessive bleeding inthe immediate period after consultation with resident or attending physician. Maximum of8 doses Misoprostol (CYTOTEC) tablet 800 mcg per buccal, oral or rectum ONE TIME, PRN for excessive bleeding in the period after consultation with resident or attending physician Tranexamic Acid IVPB 1,000 mg, IV, ONE-time PRN after physician consultation documented in this encounter Plan of Treatment Scheduled Orders Name Type Priority Associated Diagnoses Orde r Schedule LACTIC ACID Lab Stat ONE TIME for 1 Occurrences starting 01/29/2023 until 01/29/2023 documented as of this encounter Procedures Procedure Name Priority Date/Time Associated Diagnosis Comments POC GLUCOSE Routine 02/13/2023 10:12 AM CDT POC GLUCOSE Routine 02/13/2023 9:19 AM CDT POC GLUCOSE Routine 02/13/2023 5:49 AM CDT POC GLUCOSE Routine 02/13/2023 1:55 AM CDT POC GLUCOSE Routine 02/13/2023 12:33 AM CDT POC GLUCOSE Routine 02/13/2023 12:03 AM CDT POC GLUCOSE Routine 02/12/2023 11:30 PM CDT POC GLUCOSE Routine 02/12/2023 10:54 PM CDT POC GLUCOSE Routine 02/12/2023 10:24 PM CDT POC GLUCOSE Routine 02/12/2023 10:03 PM CDT POC GLUCOSE Routine 02/12/2023 8:04 PM CDT POC GLUCOSE Routine 02/12/2023 4:15 PM CDT POC GLUCOSE Routine 02/12/2023 2:10 PM CDT POC GLUCOSE Routine 02/12/2023 11:56 AM CDT POC GLUCOSE Routine 02/12/2023 9:35 AM CDT POC GLUCOSE Routine 02/12/2023 4:59 AM CDT POC GLUCOSE Routine 02/12/2023 2:32 AM CDT POC GLUCOSE Routine 02/11/2023 10:28 PM CDT POC GLUCOSE Routine 02/11/2023 8:35 PM CDT POC GLUCOSE Routine 02/11/2023 6:28 PM CDT POC GLUCOSE Routine 02/11/2023 2:58 PM CDT POC GLUCOSE Routine 02/11/2023 1:39 PM CDT POC GLUCOSE Routine 02/11/2023 11:15 AM CDT POC GLUCOSE Routine 02/11/2023 9:43 AM CDT POC GLUCOSE Routine 02/11/2023 5:09 AM CDT POC GLUCOSE Routine 02/11/2023 2:10 AM CDT POC GLUCOSE Routine 02/10/2023 10:09 PM CDT POC GLUCOSE Routine 02/10/2023 7:59 PM CDT POC GLUCOSE Routine 02/10/2023 7:03 PM CDT POC GLUCOSE Routine 02/10/2023 3:53 PM CDT POC GLUCOSE Routine 02/10/2023 2:26 PM CDT TELEMETRY REPORT 02/10/2023 11:5 3 AM CDT POC GLUCOSE Routine 02/10/2023 11:11 AM CDT POC GLUCOSE Routine 02/10/2023 9:33 AM CDT POC GLUCOSE Routine 02/10/2023 5:12 AM CDT POC GLUCOSE Routine 02/10/2023 1:56 AM CDT POC GLUCOSE Routine 02/09/2023 10:28 PM CDT POC GLUCOSE Routine 02/09/2023 8:54 PM CDT POC GLUCOSE Routine 02/09/2023 7:48 PM CDT POC GLUCOSE Routine 02/09/2023 6:26 PM CDT POC GLUCOSE Routine 02/09/2023 2:37 PM CDT POC GLUCOSE Routine 02/09/2023 1:23 PM CDT POC GLUCOSE Routine 02/09/2023 10:25 AM CDT POC GLUCOSE Routine 02/09/2023 9:19 AM CDT POC GLUCOSE Routine 02/09/2023 5:09 AM CDT POC GLUCOSE Routine 02/09/2023 2:13 AM CDT POC GLUCOSE Routine 02/08/2023 9:48 PM CDT POC GLUCOSE Routine 02/08/2023 8:38 PM CDT POC GLUCOSE Routine 02/08/2023 7:01 PM CDT POC GLUCOSE Routine 02/08/2023 6:32 PM CDT POC GLUCOSE Routine 02/08/2023 6:01 PM CDT POC GLUCOSE Routine 02/08/2023 5:31 PM CDT POC GLUCOSE Routine 02/08/2023 5:16 PM CDT POC GLUCOSE Routine 02/08/2023 4:58 PM CDT POC GLUCOSE Routine 02/08/2023 2:30 PM CDT POC GLUCOSE Routine 02/08/2023 1:32 PM CDT POC GLUCOSE Routine 02/08/2023 11:01 AM CDT POC GLUCOSE Routine 02/08/2023 9:43 AM CDT POC GLUCOSE Routine 02/08/2023 4:15 AM CDT POC GLUCOSE Routine 02/08/2023 3:35 AM CDT POC GLUCOSE Routine 02/08/2023 3:06 AM CDT POC GLUCOSE Routine 02/08/2023 2:33 AM CDT POC GLUCOSE Routine 02/08/2023 2:11 AM CDT POC GLUCOSE Routine 02/07/2023 9:18 PM CDT POC GLUCOSE Routine 02/07/2023 6:43 PM CDT POC GLUCOSE Routine 02/07/2023 5:40 PM CDT POC GLUCOSE Routine 02/07/2023 2:11 PM CDT POC GLUCOSE Routine 02/07/2023 12:51 PM CDT POC GLUCOSE Routine 02/07/2023 11:23 AM CDT POC GLUCOSE Routine 02/07/2023 10:21 AM CDT POC GLUCOSE Routine 02/07/2023 8:12 AM CDT PATHOLOGY Pathology 02/07/2023 5:36 AM CDT SECTION 02/07/2023 5:00 AM CDT POC GLUCOSE Routine 02/07/2023 4:48 AM CDT POC GLUCOSE Routine 02/07/2023 3:07 AM CDT POC GLUCOSE Routine 02/06/2023 9:49 PM CDT POC GLUCOSE Routine 02/06/2023 8:40 PM CDT POC GLUCOSE Routine 02/06/2023 6:10 PM CDT POC GLUCOSE Routine 02/06/2023 5:38 PM CDT POC GLUCOSE Routine 02/06/2023 5:07 PM CDT POC GLUCOSE Routine 02/06/2023 4:43 PM CDT POC GLUCOSE Routine 02/06/2023 4:22 PM CDT POC GLUCOSE Routine 02/06/2023 4:06 PM CDT TYPE AND SCREEN Routine 02/06/2023 3:40 PM CDT POC GLUCOSE Routine 02/06/2023 3:08 PM CDT POC GLUCOSE Routine 02/06/2023 12:32 PM CDT POC GLUCOSE Routine 02/06/2023 10:20 AM CDT POC GLUCOSE Routine 02/06/2023 8:46 AM CDT POC GLUCOSE Routine 02/06/2023 6:29 AM CDT POC GLUCOSE Routine 02/06/2023 2:06 AM CDT POC GLUCOSE Routine 02/05/2023 9:55 PM CDT POC GLUCOSE Routine 02/05/2023 9:03 PM CDT POC GLUCOSE Routine 02/05/2023 6:57 PM CDT POC GLUCOSE Routine 02/05/2023 4:08 PM CDT POC GLUCOSE Routine 02/05/2023 2:14 PM CDT POC GLUCOSE Routine 02/05/2023 1:12 PM CDT POC GLUCOSE Routine 02/05/2023 11:02 AM CDT POC GLUCOSE Routine 02/05/2023 9:23 AM CDT POC GLUCOSE Routine 02/05/2023 5:10 AM CDT POC GLUCOSE Routine 02/05/2023 3:27 AM CDT EKG 12-LEAD Stat 02/05/2023 2:00 AM CDT XR CHEST PA OR AP 1 VW Stat 1:23 AM CDT CBC WITHOUT DIFFERENTIAL Stat 02/05/2023 1:10 AM CDT COMPREHENSIVE METABOLIC PANEL Stat 02/05/2023 1:09 AM CDT POC GLUCOSE Routine 02/04/2023 10:14 PM CDT POC GLUCOSE Routine 02/04/2023 8:51 PM CDT POC GLUCOSE Routine 02/04/2023 7:27 PM CDT POC GLUCOSE Routine 02/04/2023 4:42 PM CDT POC GLUCOSE Routine 02/04/2023 3:30 PM CDT POC GLUCOSE Routine 02/04/2023 2:38 PM CDT POC GLUCOSE Routine 02/04/2023 2:01 PM CDT POC GLUCOSE Routine 02/04/2023 1:49 PM CDT POC GLUCOSE Routine 02/04/2023 11:37 AM CDT POC GLUCOSE Routine 02/04/2023 10:12 AM CDT POC GLUCOSE Routine 02/04/2023 7:03 AM CDT POC GLUCOSE Routine 02/04/2023 6:31 AM CDT POC GLUCOSE Routine 02/04/2023 6:05 AM CDT POC GLUCOSE Routine 02/04/2023 5:43 AM CDT POC GLUCOSE Routine 02/04/2023 5:26 AM CDT POC GLUCOSE Routine 02/03/2023 10:58 PM CDT POC GLUCOSE Routine 02/03/2023 10:20 PM CDT POC GLUCOSE Routine 02/03/2023 9:50 PM CDT POC GLUCOSE Routine 02/03/2023 9:17 PM CDT POC GLUCOSE Routine 02/03/2023 8:59 PM CDT POC GLUCOSE Routine 02/03/2023 6:32 PM CDT RPR Routine 02/03/2023 5:07 PM CDT POC GLUCOSE Routine 02/03/2023 3:48 PM CDT POC GLUCOSE Routine 02/03/2023 2:14 PM CDT POC GLUCOSE Routine 02/03/2023 12:49 PM CDT POC GLUCOSE Routine 02/03/2023 11:59 AM CDT POC GLUCOSE Routine 02/03/2023 10:30 AM CDT POC GLUCOSE Routine 02/03/2023 5:47 AM CDT POC GLUCOSE Routine 02/03/2023 4:08 AM CDT POC GLUCOSE Routine 02/03/2023 2:53 AM CDT POC GLUCOSE Routine 02/03/2023 2:08 AM CDT POC GLUCOSE Routine 02/03/2023 1:52 AM CDT POC GLUCOSE Routine 02/03/2023 12:58 AM CDT POC GLUCOSE Routine 02/03/2023 12:26 AM CDT POC GLUCOSE Routine 02/02/2023 10:57 PM CDT POC GLUCOSE Routine 02/02/2023 10:33 PM CDT POC GLUCOSE Routine 02/02/2023 10:12 PM CDT POC GLUCOSE Routine 02/02/2023 8:50 PM CDT POC GLUCOSE Routine 02/02/2023 8:25 PM CDT POC GLUCOSE Routine 02/02/2023 8:02 PM CDT POC GLUCOSE Routine 02/02/2023 4:19 PM CDT POC GLUCOSE Routine 02/02/2023 3:09 PM CDT POC GLUCOSE Routine 02/02/2023 10:59 AM CDT POC GLUCOSE Routine 02/02/2023 9:34 AM CDT PHOSPHORUS Routine 02/02/2023 9:09 AM CDT MAGNESIUM LEVEL Routine 02/02/2023 9:09 AM CDT BASIC METABOLIC PANEL Routine 02/02/2023 9:09 AM CDT POC GLUCOSE Routine 02/02/2023 8:08 AM CDT POC GLUCOSE Routine 02/02/2023 5:57 AM CDT CBC WITH DIFFERENTIAL Timed Study 02/02/2023 4:55 AM CDT POC GLUCOSE Routine 02/02/2023 3:59 AM CDT POC GLUCOSE Routine 02/02/2023 2:01 AM CDT POC GLUCOSE Routine 02/02/2023 1:31 AM CDT POC GLUCOSE Routine 02/02/2023 1:01 AM CDT POC GLUCOSE Routine 02/02/2023 12:33 AM CDT POC GLUCOSE Routine 02/02/2023 12:14 AM CDT POC GLUCOSE Routine 02/01/2023 11:51 PM CDT POC GLUCOSE Routine 02/01/2023 9:55 PM CDT PHOSPHORUS Routine 02/01/2023 9:30 PM CDT MAGNESIUM LEVEL Routine 02/01/2023 9:30 PM CDT BASIC METABOLIC PANEL Routine 02/01/2023 9:30 PM CDT POC GLUCOSE Routine 02/01/2023 9:28 PM CDT POC GLUCOSE Routine 02/01/2023 8:40 PM CDT POC GLUCOSE Routine 02/01/2023 8:09 PM CDT POC GLUCOSE Routine 02/01/2023 7:54 PM CDT POC GLUCOSE Routine 02/01/2023 7:34 PM CDT POC GLUCOSE Routine 02/01/2023 7:10 PM CDT POC GLUCOSE Routine 02/01/2023 6:51 PM CDT POC GLUCOSE Routine 02/01/2023 6:27 PM CDT POC GLUCOSE Routine 02/01/2023 4:02 PM CDT POC GLUCOSE Routine 02/01/2023 2:41 PM CDT EXTRA TUBE (SST/GOLD) Routine 02/01/2023 1:18 PM CDT EXTRA TUBE Routine 02/01/2023 1:18 PM CDT POC GLUCOSE Routine 02/01/2023 11:13 AM CDT POC GLUCOSE Routine 02/01/2023 9:49 AM CDT IRON, TIBC, AND PERCENT SATURATION Stat 02/01/2023 8:39 AM CDT CBC WITH DIFFERENTIAL Timed Study 02/01/2023 8:39 AM CDT PHOSPHORUS Routine 02/01/2023 8:39 AM CDT MAGNESIUM LEVEL Routine 02/01/2023 8:39 AM CDT FERRITIN Stat 02/01/2023 8:39 AM CDT BASIC METABOLIC PANEL Routine 02/01/2023 8:39 AM CDT POC GLUCOSE Routine 02/01/2023 7:32 AM CDT POC GLUCOSE Routine 02/01/2023 5:32 AM CDT POC GLUCOSE Routine 02/01/2023 2:10 AM CDT (BROTH-ENRICHED) GROUP B STREP DETECTION Routine 02/01/2023 12:41 AM CDT POC GLUCOSE Routine 02/01/2023 12:17 AM CDT POC GLUCOSE Routine 01/31/2023 10:08 PM CDT PHOSPHORUS Routine 01/31/2023 9:23 PM CDT MAGNESIUM LEVEL Routine 01/31/2023 9:23 PM CDT BASIC METABOLIC PANEL Routine 01/31/2023 9:23 PM CDT POC GLUCOSE Routine 01/31/2023 8:14 PM CDT POC GLUCOSE Routine 01/31/2023 6:04 PM CDT POC GLUCOSE Routine 01/31/2023 1:46 PM CDT POC GLUCOSE Routine 01/31/2023 11:05 AM CDT POC GLUCOSE Routine 01/31/2023 9:54 AM CDT POC GLUCOSE Routine 01/31/2023 9:15 AM CDT POC GLUCOSE Routine 01/31/2023 8:06 AM CDT POC GLUCOSE Routine 01/31/2023 7:23 AM CDT VERIFICATION BLOOD GROUP Stat 01/31/2023 7:07 AM CDT Encounter for blood typing POC GLUCOSE Routine 01/31/2023 6:19 AM CDT CBC WITH DIFFERENTIAL Timed Study 01/31/2023 5:18 AM CDT PHOSPHORUS Routine 01/31/2023 5:18 AM CDT MAGNESIUM LEVEL Routine 01/31/2023 5:18 AM CDT BASIC METABOLIC PANEL Routine 01/31/2023 5:18 AM CDT POC GLUCOSE Routine 01/31/2023 5:12 AM CDT POC GLUCOSE Routine 01/31/2023 4:19 AM CDT POC GLUCOSE Routine 01/31/2023 3:17 AM CDT POC GLUCOSE Routine 01/31/2023 2:12 AM CDT POC GLUCOSE Routine 01/31/2023 1:17 AM CDT POC GLUCOSE Routine 01/31/2023 12:01 AM CDT POC GLUCOSE Routine 01/30/2023 11:14 PM CDT POC GLUCOSE Routine 01/30/2023 10:16 PM CDT POC GLUCOSE Routine 01/30/2023 9:19 PM CDT POC GLUCOSE Routine 01/30/2023 8:28 PM CDT POC GLUCOSE Routine 01/30/2023 6:57 PM CDT POC GLUCOSE Routine 01/30/2023 5:59 PM CDT PHOSPHORUS Routine 01/30/2023 5:09 PM CDT MAGNESIUM LEVEL Routine 01/30/2023 5:09 PM CDT BASIC METABOLIC PANEL Routine 01/30/2023 5:09 PM CDT POC GLUCOSE Routine 01/30/2023 5:07 PM CDT POC GLUCOSE Routine 01/30/2023 4:01 PM CDT POC GLUCOSE Routine 01/30/2023 3:01 PM CDT POC GLUCOSE Routine 01/30/2023 2:10 PM CDT POC GLUCOSE Routine 01/30/2023 1:07 PM CDT POC GLUCOSE Routine 01/30/2023 12:00 PM CDT LACTIC ACID Timed Study 01/30/2023 11:04 AM CDT CBC WITH DIFFERENTIAL Timed Study 01/30/2023 11:04 AM CDT COMPREHENSIVE METABOLIC PANEL Timed Study 01/30/2023 11:04 AM CDT POC GLUCOSE Routine 01/30/2023 11:00 AM CDT POC GLUCOSE Routine 01/30/2023 10:04 AM CDT POC GLUCOSE Routine 01/30/2023 9:00 AM CDT POC GLUCOSE Routine 01/30/2023 8:09 AM CDT POC GLUCOSE Routine 01/30/2023 6:59 AM CDT POC GLUCOSE Routine 01/30/2023 5:57 AM CDT POC GLUCOSE Routine 01/30/2023 5:02 AM CDT LACTIC ACID Timed Study 01/30/2023 3:57 AM CDT CBC WITH DIFFERENTIAL Timed Study 01/30/2023 3:57 AM CDT KETONES/BETA HYDROXYBUTYRATE Routine 01/30/2023 3:57 AM CDT PHOSPHORUS Routine 01/30/2023 3:57 AM CDT MAGNESIUM LEVEL Routine 01/30/2023 3:57 AM CDT HEMOGLOBIN A1C Routine 01/30/2023 3:57 AM CDT COMPREHENSIVE METABOLIC PANEL Timed Study 01/30/2023 3:57 AM CDT POC GLUCOSE Routine 01/30/2023 3:52 AM CDT POC GLUCOSE Routine 01/30/2023 2:51 AM CDT POC GLUCOSE Routine 01/30/2023 2:08 AM CDT POC GLUCOSE Routine 01/30/2023 12:59 AM CDT LACTIC ACID Timed Study 01/30/2023 12:15 AM CDT CBC WITH DIFFERENTIAL Timed Study 01/30/2023 12:15 AM CDT COMPREHENSIVE METABOLIC PANEL Timed Study 01/30/2023 12:15 AM CDT POC GLUCOSE Routine 01/30/2023 12:11 AM CDT EKG 12-LEAD Routine 01/29/2023 11:29 PM CDT POC GLUCOSE Routine 01/29/2023 10:59 PM CDT BLOOD CULTURE Routine 01/29/2023 10:34 PM CDT BLOOD CULTURE Routine 01/29/2023 10:34 PM CDT POC GLUCOSE Routine 01/29/2023 10:30 PM CDT BLOOD CULTURE Routine 01/29/2023 10:28 PM CDT BLOOD CULTURE Routine 01/29/2023 10:28 PM CDT POC GLUCOSE Routine 01/29/2023 10:04 PM CDT LACTIC ACID Timed Study 01/29/2023 9:53 PM CDT CBC WITH DIFFERENTIAL Timed Study 01/29/2023 9:53 PM CDT C-REACTIVE PROTEIN Routine 01/29/2023 9: 53 PM CDT PHOSPHORUS Routine 01/29/2023 9:53 PM CDT OSMOLALITY Stat 01/29/2023 9:53 PM CDT MAGNESIUM LEVEL Routine 01/29/2023 9:53 PM CDT COMPREHENSIVE METABOLIC PANEL Timed Study 01/29/2023 9:53 PM CDT POC GLUCOSE Routine 01/29/2023 8:16 PM CDT POC GLUCOSE Routine 01/29/2023 7:02 PM CDT PROTEIN , RANDOM URINE Routine 6:58 PM CDT INFLUENZA A/B, RSV AND COVID-19 PCR PANEL Routine 01/29/2023 6:49 PM CDT INFLUENZA A/B, RSV AND COVID-19 PCR PANEL Routine 01/29/2023 6:49 PM CDT TYPE AND SCREEN Routine 01/29/2023 6:48 PM CDT LACTATE DEHYDROGENASE Stat 01/29/2023 6:48 PM CDT URINALYSIS W/REFLEX MICROSCOPIC Routine 01/29/2023 5:27 PM CDT POC GLUCOSE Routine 01/29/2023 5:16 PM CDT CBC WITH DIFFERENTIAL Routine 01/29/2023 5:03 PM CDT KETONES/BETA HYDROXYBUTYRATE Routine 01/29/2023 5:03 PM CDT URIC ACID Routine 01/29/2023 5:03 PM CDT COMPREHENSIVE METABOLIC PANEL Routine 01/29/2023 5:03 PM CDT POC GLUCOSE Routine 01/29/2023 4:05 PM CDT HIV DETECTION W/REFLX CONFIRMATION Routine 09/25/2022 HEPATITIS B SURFACE ANTIGEN Routine 09/25/2022 RUBELLA IGG Routine 09/25/2022 RPR Routine 09/25/2022 TYPE AND SCREEN Routine 09/25/2022 documented in this encounter Results * (ABNORMAL) POC GLUCOSE (02/13/2023 10:12 AM CDT) GLUCOSE POC 150(H) 74 - 99 mg/dL 02/13/2023 10:12 AM CDT [facility] SPECIMEN SOURCE, GLUCOSE POC Whole Blood 02/13/2023 10:12 AM CDT [facility] Blood, whole 02/13/2023 10:1 2 AM CDT 02/13/2023 10:27 AM CDT Zbigniew Marino MD POINT OF CARE TEST ING [facility] CLIA# [id number] [address] [facility] [place] [address] * (ABNORMAL) POC GLUCOSE (02/13/2023 9:19 AM CDT) GLUCOSE POC 173(H) 74 - 99 mg/dL 02/13/2023 9:19 AM CDT [facility] SPECIMEN SOURCE, GLUCOSE POC Whole Blood 02/13/2023 9:19 AM CDT [place] [facility] Blood, whole 02/13/2023 9:19 AM CDT 02/13/2023 9:35 AM CDT Zbigniew Marino MD POINT OF CARE TEST ING [facility] [place] [facility] CLIA# [id number] [address] [place] [address] * (ABNORMAL) POC GLUCOSE (02/13/2023 5:49 AM CDT) GLUCOSE POC 130(H) 74 - 99 mg/dL 02/13/2023 5:49 AM CDT [place] [facility] SPECIMEN SOURCE, GLUCOSE POC Whole Blood 02/13/2023 5:49 AM CDT [place] [facility] Blood, whole 02/13/2023 5:49 AM CDT 02/13/2023 5:57 AM CDT Zbigniew Marino MD POINT OF CARE TEST ING Performing Organization Address City/[facility]/ZIP Co de Phone Number [facility] [place] [facility] CLIA# [id number] [address] [place] [address] * (ABNORMAL) POC GLUCOSE (02/13/2023 1:55 AM CDT) GLUCOSE POC 162(H) 74 - 99 mg/dL 02/13/2023 1:55 AM CDT [place] [facility] SPECIMEN SOURCE, GLUCOSE POC Whole Blood 02/13/2023 1:55 AM CDT [place] [facility] Blood, whole 02/13/2023 1:55 AM CDT 02/13/2023 2:02 AM CDT Zbigniew Marino MD POINT OF CARE TEST ING [facility] [place] [facility] CLIA# [id number] [address] [place] [address] * (ABNORMAL) POC GLUCOSE (02/13/2023 12:33 AM CDT) GLUCOSE POC 152(H) 74 - 99 mg/dL 02/13/2023 12:33 AM CDT [facility] SPECIMEN SOURCE, GLUCOSE POC Whole Blood 02/13/2023 12:33 AM CDT [facility] Blood, whole 02/13/2023 12:3 3 AM CDT 02/13/2023 12:41 AM CDT Zbigniew Marino MD POINT OF CARE TEST ING Performing Organization Address [facility]/ZIP Co de Phone Number [facility] [place] [facility] CLIA# [id number] [address] [place] [address] * (ABNORMAL) POC GLUCOSE (02/13/2023 12:03 AM CDT) GLUCOSE POC 129(H) 74 - 99 mg/dL 02/13/2023 12:03 AM CDT [facility] LABOR[facility] SPECIMEN SOURCE, GLUCOSE POC Whole Blood 02/13/2023 12:03 AM CDT [facility] Blood, whole 02/13/2023 12:0 3 AM CDT 02/13/2023 12:11 AM CDT Zbigniew Marino MD POINT OF CARE TEST ING [facility] [place] [facility] CLIA# [id number] [address] [place] [address] * (ABNORMAL) POC GLUCOSE (02/12/2023 11:30 PM CDT) GLUCOSE POC 127(H) 74 - 99 mg/dL 02/12/2023 11:30 PM CDT [facility] SPECIMEN SOURCE, GLUCOSE POC Whole Blood 02/12/2023 11:30 PM CDT [facility] Blood, whole 02/12/2023 11:3 0 PM CDT 02/12/2023 11:38 PM CDT Zbigniew Marino MD POINT OF CARE TEST ING Performing Organization Address [facility]/ZIP Co de Phone Number [facility] [place] [facility]# [id number] [address] [place] [address] * POC GLUCOSE (02/12/2023 10:54 PM CDT) GLUCOSE POC 78 74 - 99 mg/dL 02/12/2023 10:54 PM CDT [facility] SPECIMEN SOURCE, GLUCOSE POC Whole Blood 02/12/2023 10:54 PM CDT [facility] Blood, whole 02/12/2023 10:5 4 PM CDT 02/12/2023 11:01 PM CDT Zbigniew Marino MD POINT OF CARE TEST ING Performing Organization Address [facility]/ZIP Co de Phone Number [facility]# [id number] [address] [place] [address] * (ABNORMAL) POC GLUCOSE (02/12/2023 10:24 PM CDT) GLUCOSE POC 62(L) 74 - 99 mg/dL 02/12/2023 10:24 PM CDT [facility] SPECIMEN SOURCE, GLUCOSE POC Whole Blood 02/12/2023 10:24 PM CDT [facility] COMMENT, GLU POC Notified RN/MD 02/12/2023 10:24 PM CDT [facility] Blood, whole 02/12/2023 10:2 4 PM CDT 02/12/2023 10:33 PM CDT Zbigniew Marino MD POINT OF CARE TEST ING [facility] [place] [facility] CLIA# [id number] [address] [place] [address] * (ABNORMAL) POC GLUCOSE (02/12/2023 10:03 PM CDT) GLUCOSE POC 67(L) 74 - 99 mg/dL 02/12/2023 10:03 PM CDT [facility] LABORATORY SERVICES [facility] SPECIMEN SOURCE, GLUCOSE POC Whole Blood 02/12/2023 10:03 PM CDT [facility] LABORATORY SERVICES [facility] COMMENT, GLU POC Notified RN/MD 02/12/2023 10:03 PM CDT [facility] LABORATORY SERVICES [facility] Blood, whole 02/12/2023 10:0 3 PM CDT 02/12/2023 10:12 PM CDT Zbigniew Marino MD POINT OF CARE TEST ING Performing Organization Address [facility]/ZIP Co de Phone Number [facility] [place] [facility] CLIA# [id number] [address] [place] [address] * (ABNORMAL) POC GLUCOSE (02/12/2023 8:04 PM CDT) GLUCOSE POC 203(H) 74 - 99 mg/dL 02/12/2023 8:04 PM CDT [facility] LABORATORY [facility] SPECIMEN SOURCE, GLUCOSE POC Whole Blood 02/12/2023 8:04 PM CDT [facility] LABORATORY [facility] Blood, whole 02/12/2023 8:04 PM CDT 02/12/2023 8:12 PM CDT Zbigniew Marino MD POINT OF CARE TEST ING [facility] [place] [facility] CLIA# [id number] [address] [place] [address] * POC GLUCOSE (02/12/2023 4:15 PM CDT) GLUCOSE POC 96 74 - 99 mg/dL 02/12/2023 4:15 PM CDT [facility] LAB[facility]ATORY [facility] SPECIMEN SOURCE, GLUCOSE POC Whole Blood 02/12/2023 4:15 PM CDT [facility] Blood, whole 02/12/2023 4:15 PM CDT 02/12/2023 4:23 PM CDT Zbigniew Marino MD POINT OF CARE TEST ING Performing Organization Address City/[facility]/ZIP Co de Phone Number [facility] LABORATORY [facility] CLIA# [id number] [address] [place] [address] * (ABNORMAL) POC GLUCOSE (02/12/2023 2:10 PM CDT) GLUCOSE POC 177(H) 74 - 99 mg/dL 02/12/2023 2:10 PM CDT [facility] LABORATORY SERVICES [facility] SPECIMEN SOURCE, GLUCOSE POC Whole Blood 02/12/2023 2:10 PM CDT [facility] COMMENT, GLU POC Notified RN/MD 02/12/2023 2:10 PM CDT [facility] Blood, whole 02/12/2023 2:10 PM CDT 02/12/2023 2:18 PM CDT Zbigniew Marino MD POINT OF CARE TEST ING [facility] LABORATORY [facility] CLIA# [id number] [address] [place] [address] * (ABNORMAL) POC GLUCOSE (02/12/2023 11:56 AM CDT) GLUCOSE POC 155(H) 74 - 99 mg/dL 02/12/2023 11:56 AM CDT [place] [facility] SPECIMEN SOURCE, GLUCOSE POC Whole Blood 02/12/2023 11:56 AM CDT [place] [facility] Blood, whole 02/12/2023 11:5 6 AM CDT 02/12/2023 12:10 PM CDT Zbigniew Marino MD POINT OF CARE TEST ING Performing Organization Address [facility]/State/ZIP Co de Phone Number [facility] [place] [facility] CLIA# [id number] [address] [place] [address] * (ABNORMAL) POC GLUCOSE (02/12/2023 9:35 AM CDT) GLUCOSE POC 252(H) 74 - 99 mg/dL 02/12/2023 9:35 AM CDT [place] [facility]ORAT[facility] SERVICES [facility] SPECIMEN SOURCE, GLUCOSE POC Whole Blood 02/12/2023 9:35 AM CDT [place] [facility]AT[facility] SERVICES [facility] COMMENT, GLU POC Notified RN/MD 02/12/2023 9:35 AM CDT [employer] [facility] Blood, whole 02/12/2023 9:35 AM CDT 02/12/2023 9:57 AM CDT Zbigniew Marino MD POINT OF CARE TEST ING Performing Organization Address [facility]/ZIP Co de Phone Number [facility] [place] [facility]# [id number] [address] [place] [address] * (ABNORMAL) POC GLUCOSE (02/12/2023 4:59 AM CDT) GLUCOSE POC 212(H) 74 - 99 mg/dL 02/12/2023 4:59 AM CDT [place] [facility] SPECIMEN SOURCE, GLUCOSE POC Whole Blood 02/12/2023 4:59 AM CDT [employer] [facility] Blood, whole 02/12/2023 4:59 AM CDT 02/12/2023 5:10 AM CDT Zbigniew Marino MD POINT OF CARE TEST ING [facility] LABORATORY [facility]# [id number] [address] [place] [address] * (ABNORMAL) POC GLUCOSE (02/12/2023 2:32 AM CDT) GLUCOSE POC 137(H) 74 - 99 mg/dL 02/12/2023 2:32 AM CDT [facility] LABORATORY [facility] SPECIMEN SOURCE, GLUCOSE POC Whole Blood 02/12/2023 2:32 AM CDT [facility] LABORATORY [facility] Blood, whole 02/12/2023 2:32 AM CDT 02/12/2023 2:49 AM CDT Zbigniew Marino MD POINT OF CARE TEST ING Performing Organization Address City/[facility]/ZIP Co de Phone Number [facility] [place] [facility] CLIA# [id number] [address] [place] [address] * (ABNORMAL) POC GLUCOSE (02/11/2023 10:28 PM CDT) GLUCOSE POC 109(H) 74 - 99 mg/dL 02/11/2023 10:28 PM CDT [facility] [place] [facility] SPECIMEN SOURCE, GLUCOSE POC Whole Blood 02/11/2023 10:28 PM CDT [facility] [place] [facility] Blood, whole 02/11/2023 10:2 8 PM CDT 02/11/2023 10:40 PM CDT Zbigniew Marino MD POINT OF CARE TEST ING [facility] [place] [facility] CLIA# [id number] [address] [place] [address] * (ABNORMAL) POC GLUCOSE (02/11/2023 8:35 PM CDT) GLUCOSE POC 131(H) 74 - 99 mg/dL 02/11/2023 8:35 PM CDT [facility] LAB[facility]ATORY [facility] SPECIMEN SOURCE, GLUCOSE POC Whole Blood 02/11/2023 8:35 PM CDT [facility] Blood, whole 02/11/2023 8:35 PM CDT 02/11/2023 9:34 PM CDT Zbigniew Marino MD POINT OF CARE TEST ING [facility] [place] [facility] CLIA# [id number] [address] [place] [address] * (ABNORMAL) POC GLUCOSE (02/11/2023 6:28 PM CDT) GLUCOSE POC 181(H) 74 - 99 mg/dL 02/11/2023 6:28 PM CDT [facility] LABORATORY [facility] SPECIMEN SOURCE, GLUCOSE POC Whole Blood 02/11/2023 6:28 PM CDT [facility] Blood, whole 02/11/2023 6:28 PM CDT 02/11/2023 6:43 PM CDT Zbigniew Marino MD POINT OF CARE TEST ING [facility] [place] [facility] CLIA# [id number] [address] [place] [address] * (ABNORMAL) POC GLUCOSE (02/11/2023 2:58 PM CDT) GLUCOSE POC 229(H) 74 - 99 mg/dL 02/11/2023 2:58 PM CDT [facility] SERVICES [facility] SPECIMEN SOURCE, GLUCOSE POC Whole Blood 02/11/2023 2:58 PM CDT [facility] Blood, whole 02/11/2023 2:58 PM CDT 02/11/2023 3:13 PM CDT Zbigniew Marino MD POINT OF CARE TEST ING [facility] LABORATORY [facility] CLIA# [id number] [address] [place] [address] * (ABNORMAL) POC GLUCOSE (02/11/2023 1:39 PM CDT) GLUCOSE POC 307(H) 74 - 99 mg/dL 02/11/2023 1:39 PM CDT [facility] LABORATORY SERVICES [facility] SPECIMEN SOURCE, GLUCOSE POC Whole Blood 02/11/2023 1:39 PM CDT [facility] LABORATORY SERVICES [facility] COMMENT, GLU POC Notified RN/MD 02/11/2023 1:39 PM CDT [facility] LABORATORY SERVICES [facility] Blood, whole 02/11/2023 1:39 PM CDT 02/11/2023 1:54 PM CDT Zbigniew Marino MD POINT OF CARE TEST ING [facility] [place] [facility] CLIA# [id number] [address] [place] [address] * (ABNORMAL) POC GLUCOSE (02/11/2023 11:15 AM CDT) GLUCOSE POC 339(H) 74 - 99 mg/dL 02/11/2023 11:15 AM CDT [facility] LABORATORY [facility] SPECIMEN SOURCE, GLUCOSE POC Whole Blood 02/11/2023 11:15 AM CDT [facility] LABORATORY [facility] COMMENT, GLU POC Notified RN/MD 02/11/2023 11:15 AM CDT [facility] LABORATORY SERVICES [facility] Blood, whole 02/11/2023 11:1 5 AM CDT 02/11/2023 11:38 AM CDT Zbigniew Marino MD POINT OF CARE TEST ING [facility] CLIA# [id number] [address] [place] [address] * (ABNORMAL) POC GLUCOSE (02/11/2023 9:43 AM CDT) GLUCOSE POC 256(H) 74 - 99 mg/dL 02/11/2023 9:43 AM CDT [facility] LABORATORY [facility] SPECIMEN SOURCE, GLUCOSE POC Whole Blood 02/11/2023 9:43 AM CDT [facility] Blood, whole 02/11/2023 9:43 AM CDT 02/11/2023 10:00 AM CDT Zbigniew Marino MD POINT OF CARE TEST ING [facility] CLIA# [id number] [address] [place] [address] * (ABNORMAL) POC GLUCOSE (02/11/2023 5:09 AM CDT) GLUCOSE POC 353(H) 74 - 99 mg/dL 02/11/2023 5:09 AM CDT [facility] LABORATORY [facility] SPECIMEN SOURCE, GLUCOSE POC Whole Blood 02/11/2023 5:09 AM CDT [facility] LABORATORY [facility] COMMENT, GLU POC Notified RN/MD 02/11/2023 5:09 AM CDT [facility] Blood, whole 02/11/2023 5:09 AM CDT 02/11/2023 5:28 AM CDT Zbigniew Marino MD POINT OF CARE TEST ING [facility] CLIA# [id number] [address] [place] [address] * (ABNORMAL) POC GLUCOSE (02/11/2023 2:10 AM CDT) GLUCOSE POC 318(H) 74 - 99 mg/dL 02/11/2023 2:10 AM CDT [facility] LABORATORY SERVICES [facility] SPECIMEN SOURCE, GLUCOSE POC Whole Blood 02/11/2023 2:10 AM CDT [place] [facility] COMMENT, GLU POC Notified RN/MD 02/11/2023 2:10 AM CDT [place]AT[facility] SERVICES [facility] Blood, whole 02/11/2023 2:10 AM CDT 02/11/2023 2:21 AM CDT Zbigniew Marino MD POINT OF CARE TEST ING Performing Organization Address [facility] Co de Phone Number [facility] LABORATORY [facility] CLIA# [id number] [address] [place] [address] * (ABNORMAL) POC GLUCOSE (02/10/2023 10:09 PM CDT) GLUCOSE POC 364(H) 74 - 99 mg/dL 02/10/2023 10:09 PM CDT [place] [facility] SERVICES [facility] SPECIMEN SOURCE, GLUCOSE POC Whole Blood 02/10/2023 10:09 PM CDT [place] SERVICES [facility] COMMENT, GLU POC Notified RN/ 02/10/2023 10:09 PM CDT [place] SERVICES [facility] Blood, whole 02/10/2023 10:0 9 PM CDT 02/10/2023 10:19 PM CDT Zbigniew Marino MD POINT OF CARE TEST ING Performing Organization Address [facility] Co de Phone Number [facility] LABORATORY [facility] CLIA# [id number] [address] [place] [address] * (ABNORMAL) POC GLUCOSE (02/10/2023 7:59 PM CDT) GLUCOSE POC 247(H) 74 - 99 mg/dL 02/10/2023 7:59 PM CDT [facility] SERVICES [facility] SPECIMEN SOURCE, GLUCOSE POC Whole Blood 02/10/2023 7:59 PM CDT [place] [facility] SERVICES [facility] Blood, whole 02/10/2023 7:59 PM CDT 02/10/2023 8:28 PM CDT Zbigniew Marino MD POINT OF CARE TEST ING [facility] [place] [facility] CLIA# [id number] [address] [place] [address] * (ABNORMAL) POC GLUCOSE (02/10/2023 7:03 PM CDT) GLUCOSE POC 214(H) 74 - 99 mg/dL 02/10/2023 7:03 PM CDT [facility] LABORATORY [facility] SPECIMEN SOURCE, GLUCOSE POC Whole Blood 02/10/2023 7:03 PM CDT [facility] LABORATORY SERVICES [facility] Blood, whole 02/10/2023 7:03 PM CDT 02/10/2023 7:16 PM CDT Zbigniew Marino MD POINT OF CARE TEST ING Performing Organization Address [facility]/ZIP Co de Phone Number [facility] [place] [facility] CLIA# [id number] [address] [place] [address] * (ABNORMAL) POC GLUCOSE (02/10/2023 3:53 PM CDT) GLUCOSE POC 137(H) 74 - 99 mg/dL 02/10/2023 3:53 PM CDT [facility] LABORATORY SERVICES [facility] SPECIMEN SOURCE, GLUCOSE POC Whole Blood 02/10/2023 3:53 PM CDT [facility] LABORATORY [facility] Blood, whole 02/10/2023 3:53 PM CDT 02/10/2023 4:03 PM CDT Zbigniew Marino MD POINT OF CARE TEST ING Performing Organization Address [facility]/ZIP Co de Phone Number [facility] [place] [facility] CLIA# [id number] [address] [place] [address] * (ABNORMAL) POC GLUCOSE (02/10/2023 2:26 PM CDT) GLUCOSE POC 131(H) 74 - 99 mg/dL 02/10/2023 2:26 PM CDT [facility] LABORATORY [facility] SPECIMEN SOURCE, GLUCOSE POC Whole Blood 02/10/2023 2:26 PM CDT [facility] LABORATORY SERVICES [facility] Blood, whole 02/10/2023 2:26 PM CDT 02/10/2023 2:37 PM CDT Zbigniew Marino MD POINT OF CARE TEST ING [facility] [place] [facility] CLIA# [id number] [address] [place] [address] * TELEMETRY REPORT (02/10/2023 11:53 AM CDT) Provider Scanning ECG ORDERABLES * (ABNORMAL) POC GLUCOSE (02/10/2023 11:11 AM CDT) GLUCOSE POC 314(H) 74 - 99 mg/dL 02/10/2023 11:11 AM CDT [facility] LABORATORY [facility] SPECIMEN SOURCE, GLUCOSE POC Whole Blood 02/10/2023 11:11 AM CDT [facility] LABORATORY [facility] COMMENT, GLU POC Notified RN/MD 02/10/2023 11:11 AM CDT [facility] LAB[facility] Blood, whole 02/10/2023 11:1 1 AM CDT 02/10/2023 11:24 AM CDT Zbigniew Marino MD POINT OF CARE TEST ING [facility] CLIA# [id number] [address] [place] [address] * (ABNORMAL) POC GLUCOSE (02/10/2023 9:33 AM CDT) GLUCOSE POC 338(H) 74 - 99 mg/dL 02/10/2023 9:33 AM CDT [place] [facility] SPECIMEN SOURCE, GLUCOSE POC Whole Blood 02/10/2023 9:33 AM CDT [place] [facility] COMMENT, GLU POC Notified RN/MD 02/10/2023 9:33 AM CDT [place] [facility] Blood, whole 02/10/2023 9:33 AM CDT 02/10/2023 9:45 AM CDT Zbigniew Marino MD POINT OF CARE TEST ING Performing Organization Address City/[facility]/ZIP Co de Phone Number [facility] LABORATORY SERVICES [facility] CLIA# [id number] [address] [place] [address] * (ABNORMAL) POC GLUCOSE (02/10/2023 5:12 AM CDT) GLUCOSE POC 317(H) 74 - 99 mg/dL 02/10/2023 5:12 AM CDT [place] [facility] SPECIMEN SOURCE, GLUCOSE POC Whole Blood 02/10/2023 5:12 AM CDT [place] [facility] SERVICES [facility] COMMENT, GLU POC Notified RN/MD 02/10/2023 5:12 AM CDT [place] [facility] Blood, whole 02/10/2023 5:12 AM CDT 02/10/2023 5:22 AM CDT Zbigniew Marino MD POINT OF CARE TEST ING Performing Organization Address City/[facility]/ZIP Co de Phone Number [facility] LABORATORY SERVICES [facility] CLIA# [id number] [address] [place] [address] * (ABNORMAL) POC GLUCOSE (02/10/2023 1:56 AM CDT) GLUCOSE POC 337(H) 74 - 99 mg/dL 02/10/2023 1:56 AM CDT [place] [facility] SERVICES [facility] SPECIMEN SOURCE, GLUCOSE POC Whole Blood 02/10/2023 1:56 AM CDT [place] [facility] SERVICES [facility] COMMENT, GLU POC Notified RN/MD 02/10/2023 1:56 AM CDT [facility] LABORATORY SERVICES [facility] Blood, whole 02/10/2023 1:56 AM CDT 02/10/2023 2:05 AM CDT Zbigniew Marino MD POINT OF CARE TEST ING [facility] [place] [facility] CLIA# [id number] [address] [place] [address] * (ABNORMAL) POC GLUCOSE (02/09/2023 10:28 PM CDT) GLUCOSE POC 210(H) 74 - 99 mg/dL 02/09/2023 10:28 PM CDT [facility] LABORATORY [facility] SPECIMEN SOURCE, GLUCOSE POC Whole Blood 02/09/2023 10:28 PM CDT [facility] LABORATORY SERVICES [facility] Blood, whole 02/09/2023 10:2 8 PM CDT 02/09/2023 10:46 PM CDT Zbigniew Marino MD POINT OF CARE TEST ING Performing Organization Address [facility]/ZIP Co de Phone Number [facility] [place] [facility] CLIA# [id number] [address] [place] [address] * POC GLUCOSE (02/09/2023 8:54 PM CDT) GLUCOSE POC 92 74 - 99 mg/dL 02/09/2023 8:54 PM CDT [facility] LABORATORY SERVICES [facility] SPECIMEN SOURCE, GLUCOSE POC Whole Blood 02/09/2023 8:54 PM CDT [facility] LABORATORY SERVICES [facility] Blood, whole 02/09/2023 8:54 PM CDT 02/09/2023 9:07 PM CDT Zbigniew Marino MD POINT OF CARE TEST ING [facility] LABORATORY [facility] CLIA# [id number] [address] [place] [address] * POC GLUCOSE (02/09/2023 7:48 PM CDT) GLUCOSE POC 78 74 - 99 mg/dL 02/09/2023 7:48 PM CDT [facility] LABORATORY [facility] SPECIMEN SOURCE, GLUCOSE POC Whole Blood 02/09/2023 7:48 PM CDT [facility] LAB[facility]AT[facility] Blood, whole 02/09/2023 7:48 PM CDT 02/09/2023 8:05 PM CDT Zbigniew Marino MD POINT OF CARE TEST ING Performing Organization Address City/[facility]/ZIP Co de Phone Number [facility] [place] [facility] CLIA# [id number] [address] [place] [address] * (ABNORMAL) POC GLUCOSE (02/09/2023 6:26 PM CDT) GLUCOSE POC 143(H) 74 - 99 mg/dL 02/09/2023 6:26 PM CDT [facility] LABORATORY [facility] SPECIMEN SOURCE, GLUCOSE POC Whole Blood 02/09/2023 6:26 PM CDT [facility] LABORATORY SERVICES [facility] COMMENT, GLU POC Notified RN/MD 02/09/2023 6:26 PM CDT [facility] LABORATORY [facility] Blood, whole 02/09/2023 6:26 PM CDT 02/09/2023 6:39 PM CDT Zbigniew Marino MD POINT OF CARE TEST ING [facility] [place] [facility] CLIA# [id number] [address] [place] [address] * (ABNORMAL) POC GLUCOSE (02/09/2023 2:37 PM CDT) GLUCOSE POC 226(H) 74 - 99 mg/dL 02/09/2023 2:37 PM CDT [place] [facility] SPECIMEN SOURCE, GLUCOSE POC Whole Blood 02/09/2023 2:37 PM CDT [place] [facility] Blood, whole 02/09/2023 2:37 PM CDT 02/09/2023 2:45 PM CDT Zbigniew Marino MD POINT OF CARE TEST ING Performing Organization Address [facility] Co de Phone Number [facility] LABORATORY [facility] CLIA# [id number] [address] [place] [address] * (ABNORMAL) POC GLUCOSE (02/09/2023 1:23 PM CDT) GLUCOSE POC 272(H) 74 - 99 mg/dL 02/09/2023 1:23 PM CDT [place] [facility] SERVICES [facility] SPECIMEN SOURCE, GLUCOSE POC Whole Blood 02/09/2023 1:23 PM CDT [place] [facility] SERVICES [facility] COMMENT, GLU POC Notified RN/MD 02/09/2023 1:23 PM CDT [place] [facility] SERVICES [facility] Blood, whole 02/09/2023 1:23 PM CDT 02/09/2023 1:32 PM CDT Zbigniew Marino MD POINT OF CARE TEST ING Performing Organization Address [facility] Co de Phone Number [facility] LABORATORY [facility] CLIA# [id number] [address] [place] [address] * (ABNORMAL) POC GLUCOSE (02/09/2023 10:25 AM CDT) GLUCOSE POC 170(H) 74 - 99 mg/dL 02/09/2023 10:25 AM CDT [place] [facility] SERVICES [facility] SPECIMEN SOURCE, GLUCOSE POC Whole Blood 02/09/2023 10:25 AM CDT [place] [facility] SERVICES [facility] COMMENT, GLU POC Notified RN/MD 02/09/2023 10:25 AM CDT [place] [facility] Blood, whole 02/09/2023 10:2 5 AM CDT 02/09/2023 10:33 AM CDT Zbigniew Marino MD POINT OF CARE TEST ING [facility] [place] [facility] CLIA# [id number] [address] [place] [address] * (ABNORMAL) POC GLUCOSE (02/09/2023 9:19 AM CDT) GLUCOSE POC 138(H) 74 - 99 mg/dL 02/09/2023 9:19 AM CDT [place] [facility] SERVICES [facility] SPECIMEN SOURCE, GLUCOSE POC Whole Blood 02/09/2023 9:19 AM CDT [place] [facility] SERVICES [facility] Blood, whole 02/09/2023 9:19 AM CDT 02/09/2023 9:27 AM CDT Zbigniew Marino MD POINT OF CARE TEST ING [facility] [place] [facility] CLIA# [id number] [address] [place] [address] * (ABNORMAL) POC GLUCOSE (02/09/2023 5:09 AM CDT) GLUCOSE POC 106(H) 74 - 99 mg/dL 02/09/2023 5:09 AM CDT [place] [facility] SPECIMEN SOURCE, GLUCOSE POC Whole Blood 02/09/2023 5:09 AM CDT [place] [facility] Blood, whole 02/09/2023 5:09 AM CDT 02/09/2023 5:27 AM CDT Zbigniew Marino MD POINT OF CARE TEST ING [facility] LABORATORY [facility] CLIA# [id number] [address] [place] [address] * (ABNORMAL) POC GLUCOSE (02/09/2023 2:13 AM CDT) GLUCOSE POC 142(H) 74 - 99 mg/dL 02/09/2023 2:13 AM CDT [facility] LABORATORY SERVICES [facility] SPECIMEN SOURCE, GLUCOSE POC Whole Blood 02/09/2023 2:13 AM CDT [place] [facility] Blood, whole 02/09/2023 2:13 AM CDT 02/09/2023 2:22 AM CDT Zbigniew Marino MD POINT OF CARE TEST ING Performing Organization Address [facility]/ZIP Co de Phone Number [facility] [place] [facility] CLIA# [id number] [address] [place] [address] * (ABNORMAL) POC GLUCOSE (02/08/2023 9:48 PM CDT) GLUCOSE POC 133(H) 74 - 99 mg/dL 02/08/2023 9:48 PM CDT [place] [facility] SPECIMEN SOURCE, GLUCOSE POC Whole Blood 02/08/2023 9:48 PM CDT [facility] LABORATORY [facility] Blood, whole 02/08/2023 9:48 PM CDT 02/08/2023 10:18 PM CDT Zbigniew Marino MD POINT OF CARE TEST ING [facility] [place] [facility] CLIA# [id number] [address] [place] [address] * (ABNORMAL) POC GLUCOSE (02/08/2023 8:38 PM CDT) GLUCOSE POC 132(H) 74 - 99 mg/dL 02/08/2023 8:38 PM CDT [place] [facility] SPECIMEN SOURCE, GLUCOSE POC Whole Blood 02/08/2023 8:38 PM CDT [facility] LABORATORY [facility] Blood, whole 02/08/2023 8:38 PM CDT 02/08/2023 9:18 PM CDT Zbigniew Marino MD POINT OF CARE TEST ING Performing Organization Address [facility] Co de Phone Number [facility] CLIA# [id number] [address] [place] [address] * (ABNORMAL) POC GLUCOSE (02/08/2023 7:01 PM CDT) GLUCOSE POC 152(H) 74 - 99 mg/dL 02/08/2023 7:01 PM CDT [facility] LABORATORY [facility] SPECIMEN SOURCE, GLUCOSE POC Whole Blood 02/08/2023 7:01 PM CDT [facility] LABORATORY [facility] COMMENT, GLU POC Notified RN/MD 02/08/2023 7:01 PM CDT [facility] [place] [facility] Blood, whole 02/08/2023 7:01 PM CDT 02/08/2023 7:28 PM CDT Zbigniew Marino MD POINT OF CARE TEST ING Performing Organization Address [facility] Co de Phone Number [facility] [place] [facility] CLIA# [id number] [address] [place] [address] * (ABNORMAL) POC GLUCOSE (02/08/2023 6:32 PM CDT) GLUCOSE POC 125(H) 74 - 99 mg/dL 02/08/2023 6:32 PM CDT [facility] LABORATORY [facility] SPECIMEN SOURCE, GLUCOSE POC Whole Blood 02/08/2023 6:32 PM CDT [facility] LABORATORY [facility] Blood, whole 02/08/2023 6:32 PM CDT 02/08/2023 6:41 PM CDT Zbigniew Marino MD POINT OF CARE TEST ING Performing Organization Address [facility]/ZIP Co de Phone Number [facility] CLIA# [id number] [address] [place] [address] * (ABNORMAL) POC GLUCOSE (02/08/2023 6:01 PM CDT) GLUCOSE POC 111(H) 74 - 99 mg/dL 02/08/2023 6:01 PM CDT [facility] SPECIMEN SOURCE, GLUCOSE POC Whole Blood 02/08/2023 6:01 PM CDT [facility] Blood, whole 02/08/2023 6:01 PM CDT 02/08/2023 6:12 PM CDT Zbigniew Marino MD POINT OF CARE TEST ING Performing Organization Address [facility] Co de Phone Number [facility] CLIA# [id number] [address] [place] [address] * (ABNORMAL) POC GLUCOSE (02/08/2023 5:31 PM CDT) GLUCOSE POC 73(L) 74 - 99 mg/dL 02/08/2023 5:31 PM CDT [facility] SPECIMEN SOURCE, GLUCOSE POC Whole Blood 02/08/2023 5:31 PM CDT [facility] COMMENT, GLU POC Notified RN/MD 02/08/2023 5:31 PM CDT [facility] Blood, whole 02/08/2023 5:31 PM CDT 02/08/2023 5:40 PM CDT Zbigniew Marino MD POINT OF CARE TEST ING Performing Organization Address [facility]/ZIP Co de Phone Number [facility] CLIA# [id number] [address] [place] [address] * (ABNORMAL) POC GLUCOSE (02/08/2023 5:16 PM CDT) GLUCOSE POC 62(L) 74 - 99 mg/dL 02/08/2023 5:16 PM CDT [facility] SPECIMEN SOURCE, GLUCOSE POC Whole Blood 02/08/2023 5:16 PM CDT [facility] COMMENT, GLU POC Notified RN/MD 02/08/2023 5:16 PM CDT [facility] Blood, whole 02/08/2023 5:16 PM CDT 02/08/2023 5:25 PM CDT Zbigniew Marino MD POINT OF CARE TEST ING [facility] CLIA# [id number] [address] [id number] * (ABNORMAL) POC GLUCOSE (02/08/2023 4:58 PM CDT) GLUCOSE POC 54(L) 74 - 99 mg/dL 02/08/2023 4:58 PM CDT [facility] SPECIMEN SOURCE, GLUCOSE POC Whole Blood 02/08/2023 4:58 PM CDT [facility] COMMENT, GLU POC Notified RN/ 02/08/2023 4:58 PM CDT [facility] SERVICES [facility] Blood, whole 02/08/2023 4:58 PM CDT 02/08/2023 5:25 PM CDT Zbigniew Marino MD POINT OF CARE TEST ING [facility] CLIA# [id number] [address] [place] [id number] * (ABNORMAL) POC GLUCOSE (02/08/2023 2:30 PM CDT) GLUCOSE POC 114(H) 74 - 99 mg/dL 02/08/2023 2:30 PM CDT [facility] LABORATORY SERVICES [facility] SPECIMEN SOURCE, GLUCOSE POC Whole Blood 02/08/2023 2:30 PM CDT [place] [facility] Blood, whole 02/08/2023 2:30 PM CDT 02/08/2023 2:37 PM CDT Zbigniew Marino MD POINT OF CARE TEST ING [facility] LABORATORY [facility] CLIA# [id number] [address] [place] [address] * (ABNORMAL) POC GLUCOSE (02/08/2023 1:32 PM CDT) GLUCOSE POC 141(H) 74 - 99 mg/dL 02/08/2023 1:32 PM CDT [place] [facility] SPECIMEN SOURCE, GLUCOSE POC Whole Blood 02/08/2023 1:32 PM CDT [place] [facility] Blood, whole 02/08/2023 1:32 PM CDT 02/08/2023 1:56 PM CDT Zbigniew Marino MD POINT OF CARE TEST ING [facility] [place] [facility] CLIA# [id number] [address] [place] [address] * (ABNORMAL) POC GLUCOSE (02/08/2023 11:01 AM CDT) GLUCOSE POC 161(H) 74 - 99 mg/dL 02/08/2023 11:01 AM CDT [place] [facility] SPECIMEN SOURCE, GLUCOSE POC Whole Blood 02/08/2023 11:01 AM CDT [place] [facility] Blood, whole 02/08/2023 11:0 1 AM CDT 02/08/2023 11:10 AM CDT Zbigniew Marino MD POINT OF CARE TEST ING [facility] LABORATORY [facility]# [id number] [address] [place] [address] * POC GLUCOSE (02/08/2023 9:43 AM CDT) GLUCOSE POC 75 74 - 99 mg/dL 02/08/2023 9:43 AM CDT [facility] SPECIMEN SOURCE, GLUCOSE POC Whole Blood 02/08/2023 9:43 AM CDT [facility] Blood, whole 02/08/2023 9:43 AM CDT 02/08/2023 10:17 AM CDT Zbigniew Marino MD POINT OF CARE TEST ING [facility] [place] [facility]# [id number] [address] [place] [address] * POC GLUCOSE (02/08/2023 4:15 AM CDT) GLUCOSE POC 77 74 - 99 mg/dL 02/08/2023 4:15 AM CDT [facility] LABORATORY [facility] SPECIMEN SOURCE, GLUCOSE POC Whole Blood 02/08/2023 4:15 AM CDT [facility] [place] [facility] Blood, whole 02/08/2023 4:15 AM CDT 02/08/2023 4:31 AM CDT Zbigniew Marino MD POINT OF CARE TEST ING [facility] [place] [facility]# [id number] [address] [place] [address] * (ABNORMAL) POC GLUCOSE (02/08/2023 3:35 AM CDT) GLUCOSE POC 71(L) 74 - 99 mg/dL 02/08/2023 3:35 AM CDT [facility]AT[facility] SPECIMEN SOURCE, GLUCOSE POC Whole Blood 02/08/2023 3:35 AM CDT [place] [facility] Blood, whole 02/08/2023 3:35 AM CDT 02/08/2023 3:44 AM CDT Zbigniew Marino MD POINT OF CARE TEST ING [facility] LABORATORY [facility] CLIA# [id number] [address] [place] [address] * POC GLUCOSE (02/08/2023 3:06 AM CDT) GLUCOSE POC 90 74 - 99 mg/dL 02/08/2023 3:06 AM CDT [place] [facility] SPECIMEN SOURCE, GLUCOSE POC Whole Blood 02/08/2023 3:06 AM CDT [place] [facility] Blood, whole 02/08/2023 3:06 AM CDT 02/08/2023 3:14 AM CDT Zbigniew Marino MD POINT OF CARE TEST ING Performing Organization Address City/[facility]/ZIP Co de Phone Number [facility] [place] [facility] CLIA# [id number] [address] [place] [address] * (ABNORMAL) POC GLUCOSE (02/08/2023 2:33 AM CDT) GLUCOSE POC 71(L) 74 - 99 mg/dL 02/08/2023 2:33 AM CDT [place] [facility] SPECIMEN SOURCE, GLUCOSE POC Whole Blood 02/08/2023 2:33 AM CDT [place] [facility] Blood, whole 02/08/2023 2:33 AM CDT 02/08/2023 2:44 AM CDT Zbigniew Marino MD POINT OF CARE TEST ING [facility] LABORATORY [facility] CLIA# [id number] [address] [place] [address] * (ABNORMAL) POC GLUCOSE (02/08/2023 2:11 AM CDT) GLUCOSE POC 68(L) 74 - 99 mg/dL 02/08/2023 2:11 AM CDT [facility] LABORATORY SERVICES [facility] SPECIMEN SOURCE, GLUCOSE POC Whole Blood 02/08/2023 2:11 AM CDT [facility] COMMENT, GLU POC Notified RN/MD 02/08/2023 2:11 AM CDT [facility] LABORATORY SERVICES [facility] Blood, whole 02/08/2023 2:11 AM CDT 02/08/2023 2:21 AM CDT Zbigniew Marino MD POINT OF CARE TEST ING [facility] [place] [facility] CLIA# [id number] [address] [place] [address] * (ABNORMAL) POC GLUCOSE (02/07/2023 9:18 PM CDT) GLUCOSE POC 149(H) 74 - 99 mg/dL 02/07/2023 9:18 PM CDT [facility] LABORATORY [facility] SPECIMEN SOURCE, GLUCOSE POC Whole Blood 02/07/2023 9:18 PM CDT [facility] LABORATORY [facility] Blood, whole 02/07/2023 9:18 PM CDT 02/07/2023 9:51 PM CDT Zbigniew Marino MD POINT OF CARE TEST ING [facility] CLIA# [id number] [address] [place] [address] * (ABNORMAL) POC GLUCOSE (02/07/2023 6:43 PM CDT) GLUCOSE POC 107(H) 74 - 99 mg/dL 02/07/2023 6:43 PM CDT [facility] LAB[facility]ATORY [facility] SPECIMEN SOURCE, GLUCOSE POC Whole Blood 02/07/2023 6:43 PM CDT [facility] Blood, whole 02/07/2023 6:43 PM CDT 02/07/2023 7:02 PM CDT Zbigniew Marino MD POINT OF CARE TEST ING Performing Organization Address [facility]/ZIP Co de Phone Number [facility] [place] [facility] CLIA# [id number] [address] [address] * (ABNORMAL) POC GLUCOSE (02/07/2023 5:40 PM CDT) GLUCOSE POC 70(L) 74 - 99 mg/dL 02/07/2023 5:40 PM CDT [facility]AT[facility] SPECIMEN SOURCE, GLUCOSE POC Whole Blood 02/07/2023 5:40 PM CDT [facility] Blood, whole 02/07/2023 5:40 PM CDT 02/07/2023 5:54 PM CDT Zbigniew Marino MD POINT OF CARE TEST ING Performing Organization Address [facility] Co de Phone Number [facility] [place] [facility] CLIA# [id number] [address] [place] [address] * (ABNORMAL) POC GLUCOSE (02/07/2023 2:11 PM CDT) GLUCOSE POC 105(H) 74 - 99 mg/dL 02/07/2023 2:11 PM CDT [place] [facility] SPECIMEN SOURCE, GLUCOSE POC Whole Blood 02/07/2023 2:11 PM CDT [facility] COMMENT, GLU POC Notified RN/MD 02/07/2023 2:11 PM CDT [facility] Blood, whole 02/07/2023 2:11 PM CDT 02/07/2023 2:20 PM CDT Zbigniew Marino MD POINT OF CARE TEST ING Performing Organization Address City/[facility]/ZIP Co de Phone Number [facility] [place] [facility] CLIA# [id number] [address] [place] [address] * POC GLUCOSE (02/07/2023 12:51 PM CDT) GLUCOSE POC 82 74 - 99 mg/dL 02/07/2023 12:51 PM CDT [facility] SPECIMEN SOURCE, GLUCOSE POC Whole Blood 02/07/2023 12:51 PM CDT [facility] LABORATORY SERVICES [facility] Blood, whole 02/07/2023 12:5 1 PM CDT 02/07/2023 1:16 PM CDT Zbigniew Marino MD POINT OF CARE TEST ING Performing Organization Address [facility]/ZIP Co de Phone Number [facility] [place] [facility] CLIA# [id number] [address] [place] [address] * (ABNORMAL) POC GLUCOSE (02/07/2023 11:23 AM CDT) GLUCOSE POC 128(H) 74 - 99 mg/dL 02/07/2023 11:23 AM CDT [facility] SPECIMEN SOURCE, GLUCOSE POC Whole Blood 02/07/2023 11:23 AM CDT [facility] LAB[facility] SERVICES [facility] COMMENT, GLU POC Notified RN/MD 02/07/2023 11:23 AM CDT [facility] SERVICES [facility] Blood, whole 02/07/2023 11:2 3 AM CDT 02/07/2023 11:47 AM CDT Zbigniew Marino MD POINT OF CARE TEST ING Performing Organization Address City/[facility]/ZIP Co de Phone Number [facility] [place] [facility] CLIA# [id number] [address] [place] [address] * (ABNORMAL) POC GLUCOSE (02/07/2023 10:21 AM CDT) GLUCOSE POC 137(H) 74 - 99 mg/dL 02/07/2023 10:21 AM CDT [facility] LABORATORY [facility] SPECIMEN SOURCE, GLUCOSE POC Whole Blood 02/07/2023 10:21 AM CDT [facility] Blood, whole 02/07/2023 10:2 1 AM CDT 02/07/2023 10:32 AM CDT Zbigniew Marino MD POINT OF CARE TEST ING Performing Organization Address [facility] Co de Phone Number [facility]# [id number] [address] [place] [address] * (ABNORMAL) POC GLUCOSE (02/07/2023 8:12 AM CDT) GLUCOSE POC 163(H) 74 - 99 mg/dL 02/07/2023 8:12 AM CDT [facility] LABORATORY [facility] SPECIMEN SOURCE, GLUCOSE POC Whole Blood 02/07/2023 8:12 AM CDT [facility] LABORATORY [facility] Blood, whole 02/07/2023 8:12 AM CDT 02/07/2023 8:24 AM CDT Zbigniew Marino MD POINT OF CARE TEST ING Performing Organization Address [facility] Co de Phone Number [facility]# [id number] [address] [place] [address] * PATHOLOGY (02/07/2023 5:36 AM CDT) CASE REPORT Surgical Pathology Report ? Case: [id number] ? Authorizing Provider: ??Enrico Casillas MD ?Collected: ? 02/07/2023 05:36 AM ? Ordering Location: ? [facility] ?Received: ?02/08/2023 07:54 AM ? Labor & ? Pathologist: ? Di Tilley MD ? Specimen: ?Placenta ? 3 2:05 PM T [facility] FINAL DIAGNOSIS Placenta and umbilical cord, section: - 391 g placenta (10th-25th percentile for 36-week gestation). - Single stem vessel with intimal fibrin cushion. - Mild subchorionic fibrin deposition. - Few pigment-laden macrophages identified in membranes (meconium staining). 3 2:05 PM T [facility] S DESCRIPTION Received in one container labeled Cheysandi Rosadohuma Menjivar and no micro, placenta is a 391 g (trimmed), 21.6 x 15.7 x 2.3 cm maya placenta with attached umbilical cord and membranes. A 15.2 x 1.2 to 2.6 cm normally coiled, trivascular umbilical cord attaches eccentrically, 4 cm from the closest disc margin. Received in the same container is an 11.4 x 1.5 cm segment of umbilical cord that is grossly unremarkable. The pale-castaneda to pink-stubbs, transparent membranes attach marginally with a point of rupture of 3 cm. The surface is bluegray with vessels that demonstrate a normal arborizing pattern. The maternal surface is focally disrupted that is reapproximated to appear complete. Sections show red-brown, spongy placental parenchyma with no lesions or hemorrhagic indentations identified. Fire [employer] sections are submitted in cassettes labeled A1-umbilical cord and membranes; A2 through A4-unremarkable placental parenchyma. B 3 2:05 PM [facility] MICROSCOPIC DESCRIPTION The slides are labeled [id number] and Chey Menjivar. The recorded placental weight corresponds to the 10th-25th percentile for a 36-week gestation. The pattern of villous development is mature. A single stem vessel with a nonocclusive mural thrombus, or so-called intimal fibrin cushion, is identified. No other vascular abnormalities are seen in the stem or maternal vessels. A single tiny focus of possible chronic villitis is noted. There is mild subchorionic fibrin deposition. Sections of the membranes reveal occasional pigment-laden macrophages, interpreted as meconium staining. An acute inflammatory infiltrate is not seen in the chorioamnion. The three-vessel umbilical cord is histologically unremarkable. 3 2:05 PM [facility] OPERATIVE PROCEDURE 1: SECTION 3 2:05 PM [facility] CLINICAL INFORMATION GA: 35+5 Pre-e T1DM 3 2:05 PM [facility] COMMENT Special stain, immunohistochemical, and/or in situ hybridization results are interpreted with controls that demonstrate appropriate staining reactions. Note on use of immunohistochemistry reagents and in situ hybridization probes: These tests were developed and their performance characteristics determined by [facility], Department of Laboratory Medicine. It has not been cleared or approved by the U.S. Food and Drug Administration. The FDA has determined that such clearance or approval is not necessary. The test is used for clinical purposes. It should not be regarded as investigational or for research. This laboratory is certified to perform high complexity testing. Frozen section/operating room consultation, gross examination and dissection, and case sign out may have been performed in part or completely in the following laboratories: [facility], CLIA #[id number] [address] [place] [address] [facility], [place] #[id number] [address] [place] [address] [facility]/[place], [place] #[id number] [address] [place] [address] This report was created with the [employer] voice-activated dictation system. Inherent to this system is the possibility of syntax, grammar, punctuation and other errors that could impact the interpretation of the report. If there are interpretative questions about aspects of this report, please contact the performing pathologist. 3 2:05 PM CDT [facility] Tissue SPECIMEN FROM PLACENTA / Unknown Collection / Unknown 02/07/2023 5:36 AM CDT 02/08/2023 7:54 AM CDT Comment:GA: 35+5 Pre-e T1DM Enrico Casillas MD PATHOLOGY/CYTOLOGY O RDERABLES [facility]# [id number] [address] [place] [address] * (ABNORMAL) POC GLUCOSE (02/07/2023 4:48 AM CDT) GLUCOSE POC 144(H) 74 - 99 mg/dL 02/07/2023 4:48 AM CDT [facility] SPECIMEN SOURCE, GLUCOSE POC Whole Blood 02/07/2023 4:48 AM CDT [facility] Blood, whole 02/07/2023 4:48 AM CDT 02/07/2023 7:15 AM CDT Zbigniew Marino MD POINT OF CARE TEST ING Performing Organization Address [facility]/ZIP Co de Phone Number [facility] [place] [facility]# [id number] [address] [place] [address] * (ABNORMAL) POC GLUCOSE (02/07/2023 3:07 AM CDT) GLUCOSE POC 118(H) 74 - 99 mg/dL 02/07/2023 3:07 AM CDT [facility] LABORATORY SERVICES [facility] SPECIMEN SOURCE, GLUCOSE POC Whole Blood 02/07/2023 3:07 AM CDT [facility] LABORATORY SERVICES [facility] Blood, whole 02/07/2023 3:07 AM CDT 02/07/2023 3:15 AM CDT Zbigniew Marino MD POINT OF CARE TEST ING Performing Organization Address [facility] Co de Phone Number [facility] [place] [facility]# [id number] [address] [place] [address] * (ABNORMAL) POC GLUCOSE (02/06/2023 9:49 PM CDT) GLUCOSE POC 181(H) 74 - 99 mg/dL 02/06/2023 9:49 PM CDT [facility] LABORATORY [facility] SPECIMEN SOURCE, GLUCOSE POC Whole Blood 02/06/2023 9:49 PM CDT [facility] LABORATORY [facility] Blood, whole 02/06/2023 9:49 PM CDT 02/06/2023 10:01 PM CDT Zbigniew Marino MD POINT OF CARE TEST ING Performing Organization Address [facility] Co de Phone Number [facility] [place] [facility]# [id number] [address] [place] [address] * (ABNORMAL) POC GLUCOSE (02/06/2023 8:40 PM CDT) GLUCOSE POC 203(H) 74 - 99 mg/dL 02/06/2023 8:40 PM CDT [facility] LABORATORY [facility] SPECIMEN SOURCE, GLUCOSE POC Whole Blood 02/06/2023 8:40 PM CDT [facility] LABORATORY [facility] Blood, whole 02/06/2023 8:40 PM CDT 02/06/2023 8:54 PM CDT Zbigniew Marino MD POINT OF CARE TEST ING [facility] CLIA# [id number] [address] [place] [address] * (ABNORMAL) POC GLUCOSE (02/06/2023 6:10 PM CDT) GLUCOSE POC 167(H) 74 - 99 mg/dL 02/06/2023 6:10 PM CDT [facility] LABORATORY [facility] SPECIMEN SOURCE, GLUCOSE POC Whole Blood 02/06/2023 6:10 PM CDT [facility] LABORATORY [facility] Blood, whole 02/06/2023 6:10 PM CDT 02/06/2023 6:18 PM CDT Zbigniew Marino MD POINT OF CARE TEST ING Performing Organization Address City/[facility]/ZIP Co de Phone Number [facility] CLIA# [id number] [address] [place] [address] * (ABNORMAL) POC GLUCOSE (02/06/2023 5:38 PM CDT) GLUCOSE POC 129(H) 74 - 99 mg/dL 02/06/2023 5:38 PM CDT [facility] LABORATORY [facility] SPECIMEN SOURCE, GLUCOSE POC Whole Blood 02/06/2023 5:38 PM CDT [facility] LABORATORY SERVICES [facility] Blood, whole 02/06/2023 5:38 PM CDT 02/06/2023 5:45 PM CDT Zbigniew Marino MD POINT OF CARE TEST ING [facility] [place] [facility] CLIA# [id number] [address] [place] [address] * POC GLUCOSE (02/06/2023 5:07 PM CDT) GLUCOSE POC 81 74 - 99 mg/dL 02/06/2023 5:07 PM CDT [facility] LAB[facility]ATORY [facility] SPECIMEN SOURCE, GLUCOSE POC Whole Blood 02/06/2023 5:07 PM CDT [facility]AT[facility] Blood, whole 02/06/2023 5:07 PM CDT 02/06/2023 5:24 PM CDT Zbigniew Marino MD POINT OF CARE TEST ING Performing Organization Address [facility]/ZIP Co de Phone Number [facility] LABORATORY [facility] CLIA# [id number] [address] [place] [address] * (ABNORMAL) POC GLUCOSE (02/06/2023 4:43 PM CDT) GLUCOSE POC 56(L) 74 - 99 mg/dL 02/06/2023 4:43 PM CDT [facility] LABORATORY [facility] SPECIMEN SOURCE, GLUCOSE POC Whole Blood 02/06/2023 4:43 PM CDT [facility]AT[facility] COMMENT, GLU POC Notified RN/MD 02/06/2023 4:43 PM CDT [facility]AT[facility] Blood, whole 02/06/2023 4:43 PM CDT 02/06/2023 4:51 PM CDT Zbigniew Marino MD POINT OF CARE TEST ING [facility] LABORATORY [facility] CLIA# [id number] [address] [place] [address] * (ABNORMAL) POC GLUCOSE (02/06/2023 4:22 PM CDT) GLUCOSE POC 54(L) 74 - 99 mg/dL 02/06/2023 4:22 PM CDT [facility] LAB[facility]ATORY [facility] SPECIMEN SOURCE, GLUCOSE POC Whole Blood 02/06/2023 4:22 PM CDT [facility] Blood, whole 02/06/2023 4:22 PM CDT 02/06/2023 4:37 PM CDT Zbigniew Marino MD POINT OF CARE TEST ING [facility] [place] [facility] CLIA# [id number] [address] [place] [address] * (ABNORMAL) POC GLUCOSE (02/06/2023 4:06 PM CDT) GLUCOSE POC 40(LL) 74 - 99 mg/dL 02/06/2023 4:06 PM CDT [facility] LABORATORY [facility] SPECIMEN SOURCE, GLUCOSE POC Whole Blood 02/06/2023 4:06 PM CDT [facility] LAB[facility]ATORY [facility] COMMENT, GLU POC Repeated Glucose 02/06/2023 4:06 PM CDT [facility] Blood, whole 02/06/2023 4:06 PM CDT 02/06/2023 4:14 PM CDT Zbigniew Marino MD POINT OF CARE TEST ING [facility] [place] [facility] CLIA# [id number] [address] [place] [address] * TYPE AND SCREEN (02/06/2023 3:40 PM CDT) ABO GROUP O 02/06/2023 5:40 PM CDT [facility] LABORATORY SERVICES -- [facility] RH (D) TYPE Positive 02/06/2023 5:40 PM CDT [facility] -- [facility] ANTIBODY SCREEN Negative 02/06/2023 5:40 PM CDT [employer] LABORATORY SERVICES -- [facility] Blood Venipuncture / Unknown 02/06/2023 3:40 PM CDT 02/06/2023 4:41 PM CDT Zbigniew Marino MD BLOOD BANK ORDERAB LES [facility] LABORATORY SERVICES -- [facility] CLIA# [id number] [address] [place] [address] * POC GLUCOSE (02/06/2023 3:08 PM CDT) GLUCOSE POC 79 74 - 99 mg/dL 02/06/2023 3:08 PM CDT [facility] LAB[facility]AT[facility] SPECIMEN SOURCE, GLUCOSE POC Whole Blood 02/06/2023 3:08 PM CDT [facility] Blood, whole 02/06/2023 3:08 PM CDT 02/06/2023 3:21 PM CDT Zbigniew Marino MD POINT OF CARE TEST ING Performing Organization Address [facility] Co de Phone Number [facility] CLIA# [id number] [address] [place] [address] * POC GLUCOSE (02/06/2023 12:32 PM CDT) GLUCOSE POC 95 74 - 99 mg/dL 02/06/2023 12:32 PM CDT [place] [facility] SPECIMEN SOURCE, GLUCOSE POC Whole Blood 02/06/2023 12:32 PM CDT [place] [facility] Blood, whole 02/06/2023 12:3 2 PM CDT 02/06/2023 12:49 PM CDT Zbigniew Marino MD POINT OF CARE TEST ING Performing Organization Address City/[facility]/ZIP Co de Phone Number [facility] CLIA# [id number] [address] [place] [address] * (ABNORMAL) POC GLUCOSE (02/06/2023 10:20 AM CDT) GLUCOSE POC 131(H) 74 - 99 mg/dL 02/06/2023 10:20 AM CDT [facility] SPECIMEN SOURCE, GLUCOSE POC Whole Blood 02/06/2023 10:20 AM CDT [place] [facility] Blood, whole 02/06/2023 10:2 0 AM CDT 02/06/2023 10:29 AM CDT Zbigniew Marino MD POINT OF CARE TEST ING Performing Organization Address [facility]/ZIP Co de Phone Number [facility] CLIA# [id number] [address] [place] [address] * (ABNORMAL) POC GLUCOSE (02/06/2023 8:46 AM CDT) GLUCOSE POC 115(H) 74 - 99 mg/dL 02/06/2023 8:46 AM CDT [facility] SPECIMEN SOURCE, GLUCOSE POC Whole Blood 02/06/2023 8:46 AM CDT [facility] Blood, whole 02/06/2023 8:46 AM CDT 02/06/2023 8:58 AM CDT Zbigniew Marino MD POINT OF CARE TEST ING [facility] [facility] [place] [facility] CLIA# [id number] [address] [place] [address] * POC GLUCOSE (02/06/2023 6:29 AM CDT) GLUCOSE POC 99 74 - 99 mg/dL 02/06/2023 6:29 AM CDT [place] [facility] SPECIMEN SOURCE, GLUCOSE POC Whole Blood 02/06/2023 6:29 AM CDT [place] [facility] Blood, whole 02/06/2023 6:29 AM CDT 02/06/2023 6:47 AM CDT Zbigniew Marino MD POINT OF CARE TEST ING [facility] [place] [facility] CLIA# [id number] [address] [place] [address] * (ABNORMAL) POC GLUCOSE (02/06/2023 2:06 AM CDT) GLUCOSE POC 141(H) 74 - 99 mg/dL 02/06/2023 2:06 AM CDT [facility] SPECIMEN SOURCE, GLUCOSE POC Whole Blood 02/06/2023 2:06 AM CDT [facility] Blood, whole 02/06/2023 2:06 AM CDT 02/06/2023 2:13 AM CDT Zbigniew Marino MD POINT OF CARE TEST ING [facility] [place] [facility] CLIA# [id number] [address] [place] [address] * (ABNORMAL) POC GLUCOSE (02/05/2023 9:55 PM CDT) GLUCOSE POC 183(H) 74 - 99 mg/dL 02/05/2023 9:55 PM CDT [facility] SPECIMEN SOURCE, GLUCOSE POC Whole Blood 02/05/2023 9:55 PM CDT [facility] Blood, whole 02/05/2023 9:55 PM CDT 02/05/2023 10:06 PM CDT Zbigniew Marino MD POINT OF CARE TEST ING [facility] LABORATORY [facility] CLIA# [id number] [address] [place] [address] * (ABNORMAL) POC GLUCOSE (02/05/2023 9:03 PM CDT) GLUCOSE POC 176(H) 74 - 99 mg/dL 02/05/2023 9:03 PM CDT [facility] LABORATORY SERVICES [facility] SPECIMEN SOURCE, GLUCOSE POC Whole Blood 02/05/2023 9:03 PM CDT [facility] Blood, whole 02/05/2023 9:03 PM CDT 02/05/2023 9:12 PM CDT Zbigniew Marino MD POINT OF CARE TEST ING Performing Organization Address [facility]/ZIP Co de Phone Number [facility] [place] [facility] CLIA# [id number] [address] [place] [address] * (ABNORMAL) POC GLUCOSE (02/05/2023 6:57 PM CDT) GLUCOSE POC 213(H) 74 - 99 mg/dL 02/05/2023 6:57 PM CDT [facility] LABORATORY SERVICES [facility] SPECIMEN SOURCE, GLUCOSE POC Whole Blood 02/05/2023 6:57 PM CDT [facility] Blood, whole 02/05/2023 6:57 PM CDT 02/05/2023 7:05 PM CDT Zbigniew Marino MD POINT OF CARE TEST ING [facility] [place] [facility] CLIA# [id number] [address] [place] [address] * (ABNORMAL) POC GLUCOSE (02/05/2023 4:08 PM CDT) GLUCOSE POC 135(H) 74 - 99 mg/dL 02/05/2023 4:08 PM CDT [facility] LABORATORY SERVICES [facility] SPECIMEN SOURCE, GLUCOSE POC Whole Blood 02/05/2023 4:08 PM CDT [facility] LABORATORY SERVICES [facility] Blood, whole 02/05/2023 4:08 PM CDT 02/05/2023 4:22 PM CDT Zbigniew Marino MD POINT OF CARE TEST ING [facility] [place] [facility] CLIA# [id number] [address] [place] [address] * (ABNORMAL) POC GLUCOSE (02/05/2023 2:14 PM CDT) GLUCOSE POC 128(H) 74 - 99 mg/dL 02/05/2023 2:14 PM CDT [facility] SPECIMEN SOURCE, GLUCOSE POC Whole Blood 02/05/2023 2:14 PM CDT [facility] Blood, whole 02/05/2023 2:14 PM CDT 02/05/2023 2:23 PM CDT Zbigniew Marino MD POINT OF CARE TEST ING [facility] [place] [facility] CLIA# [id number] [address] [place] [address] * (ABNORMAL) POC GLUCOSE (02/05/2023 1:12 PM CDT) GLUCOSE POC 157(H) 74 - 99 mg/dL 02/05/2023 1:12 PM CDT [facility] SPECIMEN SOURCE, GLUCOSE POC Whole Blood 02/05/2023 1:12 PM CDT [facility] Blood, whole 02/05/2023 1:12 PM CDT 02/05/2023 1:22 PM CDT Zbigniew Marino MD POINT OF CARE TEST ING [facility] LABORATORY [facility] CLIA# [id number] [address] [place] [address] * (ABNORMAL) POC GLUCOSE (02/05/2023 11:02 AM CDT) GLUCOSE POC 220(H) 74 - 99 mg/dL 02/05/2023 11:02 AM CDT [facility] LABORATORY SERVICES [facility] SPECIMEN SOURCE, GLUCOSE POC Whole Blood 02/05/2023 11:02 AM CDT [facility] Blood, whole 02/05/2023 11:0 2 AM CDT 02/05/2023 11:12 AM CDT Zbigniew Marino MD POINT OF CARE TEST ING Performing Organization Address [facility]/ZIP Co de Phone Number [facility] [place] [facility] CLIA# [id number] [address] [place] [address] * (ABNORMAL) POC GLUCOSE (02/05/2023 9:23 AM CDT) GLUCOSE POC 151(H) 74 - 99 mg/dL 02/05/2023 9:23 AM CDT [facility] LABORATORY SERVICES [facility] SPECIMEN SOURCE, GLUCOSE POC Whole Blood 02/05/2023 9:23 AM CDT [facility] Blood, whole 02/05/2023 9:23 AM CDT 02/05/2023 9:38 AM CDT Zbigniew Marino MD POINT OF CARE TEST ING [facility] [place] [facility] CLIA# [id number] [address] [place] [address] * (ABNORMAL) POC GLUCOSE (02/05/2023 5:10 AM CDT) GLUCOSE POC 103(H) 74 - 99 mg/dL 02/05/2023 5:10 AM CDT [place] [facility] SPECIMEN SOURCE, GLUCOSE POC Whole Blood 02/05/2023 5:10 AM CDT [facility] LABORATORY [facility] Blood, whole 02/05/2023 5:10 AM CDT 02/05/2023 5:17 AM CDT Zbigniew Marion MD POINT OF CARE TEST ING Performing Organization Address [facility] Co de Phone Number [facility] CLIA# [id number] [address] [place] [address] * (ABNORMAL) POC GLUCOSE (02/05/2023 3:27 AM CDT) GLUCOSE POC 107(H) 74 - 99 mg/dL 02/05/2023 3:27 AM CDT [facility] SPECIMEN SOURCE, GLUCOSE POC Whole Blood 02/05/2023 3:27 AM CDT [facility] Blood, whole 02/05/2023 3:27 AM CDT 02/05/2023 3:41 AM CDT Zbigniew Marino MD POINT OF CARE TEST ING Performing Organization Address [facility] Co de Phone Number [facility] CLIA# [id number] [address] [place] [address] * EKG 12-LEAD (02/05/2023 2:00 AM CDT) 02/05/2023 2:00 AM CDT Narrative INTERFACE SYSTEM - 02/05/2023 6:17 AM CDT ? Stationary ECG Study ? [facility] ? Test Date: ?02/05/2023 2:00 AM Pat Name: ? CHEY TIARA ? Department: ?? 49 ?Room: ? 7150 1 Gender: ? 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 surmc1 : ?1995 ? Requested By: FRANK Varner Order Number: [id number] ? Reading MD: ?? Mann Burt ? Measurements Intervals ?[place] ? Rate: ? 76 ? P: ?50 [place]: ? 123 ?QRS: ?82 QRSD: ? 79 ? T: ?11 QT: ? 351 ? QTc: ?395 ? Interpretive Statements ? Sinus rhythm Left atrial enlargement Nonspecific T Wave Abnormality Electronically Signed On 02-05-2023 6:17:36 CDT by Mann Burt Procedure Note Mann Burt MD - 02/05/2023 Stationary ECG Study [facility] Test Date: 02/05/2023 2:00 AM Pat Name: CHEY MENJIVAR Department: 49 Room: [facility] 1 Gender: F Teacher Associate: [facility] : 1995 Requested By: FRANK Varner Order Number: [id number] Reading MD: Mann Burt Measurements Intervals [place] Rate: 76 P: 50 [place]: 123 QRS: 82 QRSD: 79 T: 11 QT: 351 QTc: 395 Interpretive Statements Sinus rhythm Left atrial enlargement Nonspecific T Wave Abnormality Electronically Signed On 02-05-2023 6:17:36 CDT by Mann Burt Zbigniew Marino MD ECG ORDERABLES INTERFACE SYSTEM Refer to clinic/hospital department * XR CHEST PA OR AP 1 VW (02/05/2023 1:23 AM CDT) Anatomical Region Laterality Modality Chest Computed Radiogr aphy 02/05/2023 1:23 AM CDT Impressions 02/05/2023 7:17 AM CDT IMPRESSION: 1. Clear lungs. DICTATION LOCATION: Location 9 [facility] Narrative 02/05/2023 7:17 AM CDT EXAMINATION: XR CHEST PA OR AP 1 VW HISTORY: Shortness of Breath SOB COMPARISON: No prior imaging is available for comparison. FINDINGS: ?? The lungs are clear of acute focal consolidation. No pleural effusion or pneumothorax identified. The cardiac mediastinal silhouette is normal in size and contour. The visible osseous structures are intact. INCIDENTAL FINDINGS: ??None. Procedure Note Frank Leigh MD - 02/05/2023 EXAMINATION: XR CHEST PA OR AP 1 VW HISTORY: Shortness of Breath SOB COMPARISON: No prior imaging is available for comparison. FINDINGS: The lungs are clear of acute focal consolidation. No pleural effusion or pneumothorax identified. The cardiac mediastinal silhouette is normal in size and contour. The visible osseous structures are intact. INCIDENTAL FINDINGS: None. IMPRESSION: 1. Clear lungs. DICTATION LOCATION: [address] Zbigniew Marino MD DIAGNOSTIC IMAGING ORDERABLES * (ABNORMAL) CBC WITHOUT DIFFERENTIAL (02/05/2023 1:10 AM CDT) [facility] WBC 9.1 4.0 - 9.8 K/uL 02/05/2023 1:23 AM T [place] [facility] RBC 3.61(L) 3.90 - 4.90 M/uL 02/05/2023 1:23 AM T [place] [facility] HEMOGLOBIN 9.4(L) 11.8 - 14.8 g/dL 02/05/2023 1:23 AM [facility] [place] [facility] HEMATOCRIT 30.3(L) 35.5 - 44.0 % 02/05/2023 1:23 AM T [place] [facility] MCV 83.9 82.0 - 99.0 fL 02/05/2023 1:23 AM T [place] [facility] MCH 26.0(L) 27.2 - 32.6 pg 02/05/2023 1:23 AM T [place] [facility] MCHC 31.0(L) 31.5 - 35.5 g/dL 02/05/2023 1:23 AM [facility] PLATELETS 266 140 - 350 K/uL 02/05/2023 1:23 AM CDT [facility]AT[facility] - [facility] MPV 9.4 9.3 - 12.4 fL 02/05/2023 1:23 AM CDT [place] [facility] RDW 18.5(H) 11.5 - 14.5 % 02/05/2023 1:23 AM CDT [place] [facility] - . [facility] RDW-STDEV 50.0(H) 37.1 - 48.7 fL 02/05/2023 1:23 AM CDT [facility] Blood Venipuncture / Unknown 02/05/2023 1:10 AM CDT 02/05/2023 1:16 AM CDT Zbigniew Marino MD HEMATOLOGY ORDERAB LES [facility] [place] [facility]# [id number] [address] [place] [address] * (ABNORMAL) COMPREHENSIVE METABOLIC PANEL (02/05/2023 1:09 AM CDT) SODIUM 138 136 - 145 mmol/L 02/05/2023 1:46 AM T [facility] POTASSIUM 4.3 3.5 - 5.0 mmol/L 02/05/2023 1:46 AM T [place] [facility] CHLORIDE 101 98 - 107 mmol/L 02/05/2023 1:46 AM CDT [place] [facility] CO2 30(H) 22 - 29 mmol/L 02/05/2023 1:46 AM CDT [place] [facility] CALCIUM 8.8 8.6 - 10.2 mg/dL 02/05/2023 1:46 AM CDT [place] [facility] BUN 4(L) 6 - 20 mg/dL 02/05/2023 1:46 AM CDT [place] [facility] CREATININE 0.54 0.51 - 0.95 mg/dL 02/05/2023 1:46 AM CDT [place] [facility] GLUCOSE 68(L) 74 - 99 mg/dL 02/05/2023 1:46 AM T [facility] TOTAL PROTEIN 5.5(L) 6.7 - 8.6 g/dL 02/05/2023 1:46 AM [facility] ALBUMIN 3.2(L) 3.5 - 5.2 g/dL 02/05/2023 1:46 AM T [facility] BILIRUBIN TOTAL 0.2(L) 0.3 - 1.2 mg/dL 02/05/2023 1:46 AM T [facility] ALKALINE PHOSPHATASE 104 35 - 104 U/L 02/05/2023 1:46 AM [facility] AST 23 <33 U/L 02/05/2023 1:46 AM [facility] ALT 12 <34 U/L 02/05/2023 1:46 AM [facility] GFR >60 >=60 mL/min/1.7 3 sq meter 02/05/2023 1:46 AM T [facility] Comment:eGFR calculated with 2020 CKD-EPI equation. Vegetarian diet, extremely high or low muscle mass, and may affect results. Cystatin C with Glomerular Filtration Rate is a suitable alternative for these patients. ANION GAP 7(L) 8 - 16 mmol/L 02/05/2023 1:46 AM [facility] Blood Venipuncture / Unknown 02/05/2023 1:09 AM CDT 02/05/2023 1:16 AM CDT [facility] - 02/05/2023 1:46 AM CDT Samples containing indocyanine green cause interferences on Total and/or Direct Bilirubin and must not be measured. Zbigniew Marino MD CHEMISTRY ORDERABL ES [facility]# [id number] [address] [place] [address] [address] [address] * (ABNORMAL) POC GLUCOSE (02/04/2023 10:14 PM CDT) GLUCOSE POC 110(H) 74 - 99 mg/dL 02/04/2023 10:14 PM CDT [facility] LABORATORY [facility] SPECIMEN SOURCE, GLUCOSE POC Whole Blood 02/04/2023 10:14 PM CDT [facility] LABORATORY [facility] Blood, whole 02/04/2023 10:1 4 PM CDT 02/04/2023 11:31 PM CDT Zbigniew Marino MD POINT OF CARE TEST ING Performing Organization Address City/[facility]/ZIP Co de Phone Number [facility] CLIA# [id number] [address] [place] [address] * (ABNORMAL) POC GLUCOSE (02/04/2023 8:51 PM CDT) GLUCOSE POC 110(H) 74 - 99 mg/dL 02/04/2023 8:51 PM CDT [facility] LABORATORY [facility] SPECIMEN SOURCE, GLUCOSE POC Whole Blood 02/04/2023 8:51 PM CDT [facility] LABORATORY [facility] Blood, whole 02/04/2023 8:51 PM CDT 02/04/2023 9:20 PM CDT Zbigniew Marino MD POINT OF CARE TEST ING [facility] CLIA# [id number] [address] [place] [address] * (ABNORMAL) POC GLUCOSE (02/04/2023 7:27 PM CDT) GLUCOSE POC 125(H) 74 - 99 mg/dL 02/04/2023 7:27 PM CDT [facility] LABORATORY [facility] SPECIMEN SOURCE, GLUCOSE POC Whole Blood 02/04/2023 7:27 PM CDT [facility] LABORATORY [facility] Blood, whole 02/04/2023 7:27 PM CDT 02/04/2023 7:37 PM CDT Zbigniew Marino MD POINT OF CARE TEST ING Performing Organization Address City/[facility]/ZIP Co de Phone Number [facility] [place] [facility] CLIA# [id number] [address] [place] [address] * (ABNORMAL) POC GLUCOSE (02/04/2023 4:42 PM CDT) GLUCOSE POC 156(H) 74 - 99 mg/dL 02/04/2023 4:42 PM CDT [facility] LABORATORY [facility] SPECIMEN SOURCE, GLUCOSE POC Whole Blood 02/04/2023 4:42 PM CDT [facility] LABORATORY [facility] Blood, whole 02/04/2023 4:42 PM CDT 02/04/2023 4:50 PM CDT Zbigniew Marino MD POINT OF CARE TEST ING Performing Organization Address [facility] Co de Phone Number [facility] [place] [facility] CLIA# [id number] [address] [place] [address] * (ABNORMAL) POC GLUCOSE (02/04/2023 3:30 PM CDT) GLUCOSE POC 176(H) 74 - 99 mg/dL 02/04/2023 3:30 PM CDT [facility] LABORATORY [facility] SPECIMEN SOURCE, GLUCOSE POC Whole Blood 02/04/2023 3:30 PM CDT [facility] LABORATORY [facility] Blood, whole 02/04/2023 3:30 PM CDT 02/04/2023 3:38 PM CDT Zbigniew Marino MD POINT OF CARE TEST ING Performing Organization Address [facility]/ZIP Co de Phone Number [facility] [place] [facility] CLIA# [id number] [address] [place] [address] * (ABNORMAL) POC GLUCOSE (02/04/2023 2:38 PM CDT) GLUCOSE POC 223(H) 74 - 99 mg/dL 02/04/2023 2:38 PM CDT [facility] LABORATORY [facility] SPECIMEN SOURCE, GLUCOSE POC Whole Blood 02/04/2023 2:38 PM CDT [facility] LABORATORY SERVICES [facility] Blood, whole 02/04/2023 2:38 PM CDT 02/04/2023 2:45 PM CDT Zbigniew Marino MD POINT OF CARE TEST ING Performing Organization Address City/[facility]/ZIP Co de Phone Number [facility] CLIA# [id number] [address] [place] [address] * (ABNORMAL) POC GLUCOSE (02/04/2023 2:01 PM CDT) GLUCOSE POC 244(H) 74 - 99 mg/dL 02/04/2023 2:01 PM CDT [facility] LABORATORY [facility] SPECIMEN SOURCE, GLUCOSE POC Whole Blood 02/04/2023 2:01 PM CDT [facility] LABORATORY [facility] Blood, whole 02/04/2023 2:01 PM CDT 02/04/2023 2:09 PM CDT Zbigniew Marino MD POINT OF CARE TEST ING [facility] CLIA# [id number] [address] [place] [address] * (ABNORMAL) POC GLUCOSE (02/04/2023 1:49 PM CDT) GLUCOSE POC 249(H) 74 - 99 mg/dL 02/04/2023 1:49 PM CDT [facility] LABORATORY [facility] SPECIMEN SOURCE, GLUCOSE POC Whole Blood 02/04/2023 1:49 PM CDT [facility] LABORATORY [facility] Blood, whole 02/04/2023 1:49 PM CDT 02/04/2023 1:57 PM CDT Zbigniew Marino MD POINT OF CARE TEST ING [facility] [place] [facility] CLIA# [id number] [address] [place] [address] * (ABNORMAL) POC GLUCOSE (02/04/2023 11:37 AM CDT) GLUCOSE POC 173(H) 74 - 99 mg/dL 02/04/2023 11:37 AM CDT [facility] LABORATORY SERVICES [facility] SPECIMEN SOURCE, GLUCOSE POC Whole Blood 02/04/2023 11:37 AM CDT [facility] LABORATORY SERVICES [facility] Blood, whole 02/04/2023 11:3 7 AM CDT 02/04/2023 11:46 AM CDT Zbigniew Marino MD POINT OF CARE TEST ING Performing Organization Address [facility]/ZIP Co de Phone Number [facility] [place] [facility] CLIA# [id number] [address] [place] [address] * (ABNORMAL) POC GLUCOSE (02/04/2023 10:12 AM CDT) GLUCOSE POC 129(H) 74 - 99 mg/dL 02/04/2023 10:12 AM CDT [facility] LABORATORY [facility] SPECIMEN SOURCE, GLUCOSE POC Whole Blood 02/04/2023 10:12 AM CDT [facility] LABORATORY [facility] Blood, whole 02/04/2023 10:1 2 AM CDT 02/04/2023 10:27 AM CDT Zbigniew Marino MD POINT OF CARE TEST ING [facility] [place] [facility] CLIA# [id number] [address] [place] [address] * (ABNORMAL) POC GLUCOSE (02/04/2023 7:03 AM CDT) GLUCOSE POC 114(H) 74 - 99 mg/dL 02/04/2023 7:03 AM CDT [facility] LAB[facility]ATORY [facility] SPECIMEN SOURCE, GLUCOSE POC Whole Blood 02/04/2023 7:03 AM CDT [facility] Blood, whole 02/04/2023 7:03 AM CDT 02/04/2023 7:13 AM CDT Zbigniew Marino MD POINT OF CARE TEST ING [facility] LABORATORY [facility] CLIA# [id number] [address] [place] [address] * POC GLUCOSE (02/04/2023 6:31 AM CDT) GLUCOSE POC 90 74 - 99 mg/dL 02/04/2023 6:31 AM CDT [facility] LABORATORY [facility] SPECIMEN SOURCE, GLUCOSE POC Whole Blood 02/04/2023 6:31 AM CDT [facility] LABORATORY [facility] Blood, whole 02/04/2023 6:31 AM CDT 02/04/2023 6:39 AM CDT Zbigniew Marino MD POINT OF CARE TEST ING [facility] LABORATORY [facility] CLIA# [id number] [address] [place] [address] * POC GLUCOSE (02/04/2023 6:05 AM CDT) GLUCOSE POC 79 74 - 99 mg/dL 02/04/2023 6:05 AM CDT [facility] LABORATORY SERVICES [facility] SPECIMEN SOURCE, GLUCOSE POC Whole Blood 02/04/2023 6:05 AM CDT [facility] Blood, whole 02/04/2023 6:05 AM CDT 02/04/2023 6:14 AM CDT Zbigniew Marino MD POINT OF CARE TEST ING Performing Organization Address City/[facility]/ZIP Co de Phone Number [facility] [place] [facility] CLIA# [id number] [address] [place] [address] * (ABNORMAL) POC GLUCOSE (02/04/2023 5:43 AM CDT) GLUCOSE POC 57(L) 74 - 99 mg/dL 02/04/2023 5:43 AM CDT [place] [facility] SPECIMEN SOURCE, GLUCOSE POC Whole Blood 02/04/2023 5:43 AM CDT [place] [facility] COMMENT, GLU POC Notified RN/MD 02/04/2023 5:43 AM CDT [place] [facility] Blood, whole 02/04/2023 5:43 AM CDT 02/04/2023 5:52 AM CDT Zbigniew Marino MD POINT OF CARE TEST ING Performing Organization Address [facility]/ZIP Co de Phone Number [facility] [place] [facility] CLIA# [id number] [address] [place] [address] * (ABNORMAL) POC GLUCOSE (02/04/2023 5:26 AM CDT) GLUCOSE POC 56(L) 74 - 99 mg/dL 02/04/2023 5:26 AM CDT [place] [facility] SPECIMEN SOURCE, GLUCOSE POC Whole Blood 02/04/2023 5:26 AM CDT [place] [facility] COMMENT, GLU POC Notified RN/MD 02/04/2023 5:26 AM CDT [place] [facility] Blood, whole 02/04/2023 5:26 AM CDT 02/04/2023 5:37 AM CDT Zbigniew Marino MD POINT OF CARE TEST ING [facility] CLIA# [id number] [address] [place] [address] * POC GLUCOSE (02/03/2023 10:58 PM CDT) GLUCOSE POC 97 74 - 99 mg/dL 02/03/2023 10:58 PM CDT [facility] SPECIMEN SOURCE, GLUCOSE POC Whole Blood 02/03/2023 10:58 PM CDT [facility] Blood, whole 02/03/2023 10:5 8 PM CDT 02/03/2023 11:06 PM CDT Zbigniew Marino MD POINT OF CARE TEST ING [facility] [place] [facility] CLIA# [id number] [address] [place] [address] * (ABNORMAL) POC GLUCOSE (02/03/2023 10:20 PM CDT) GLUCOSE POC 72(L) 74 - 99 mg/dL 02/03/2023 10:20 PM CDT [facility] SPECIMEN SOURCE, GLUCOSE POC Whole Blood 02/03/2023 10:20 PM CDT [facility] Blood, whole 02/03/2023 10:2 0 PM CDT 02/03/2023 10:31 PM CDT Zbigniew Marino MD POINT OF CARE TEST ING [facility] [place] [facility] CLIA# [id number] [address] [place] [address] * POC GLUCOSE (02/03/2023 9:50 PM CDT) GLUCOSE POC 74 74 - 99 mg/dL 02/03/2023 9:50 PM CDT [facility] SPECIMEN SOURCE, GLUCOSE POC Whole Blood 02/03/2023 9:50 PM CDT [facility] Blood, whole 02/03/2023 9:50 PM CDT 02/03/2023 9:58 PM CDT Zbigniew Marino MD POINT OF CARE TEST ING Performing Organization Address [facility]/ZIP Co de Phone Number [facility] [place] [facility] CLIA# [id number] [address] [place] [address] * POC GLUCOSE (02/03/2023 9:17 PM CDT) GLUCOSE POC 74 74 - 99 mg/dL 02/03/2023 9:17 PM CDT [facility] LABORATORY SERVICES [facility] SPECIMEN SOURCE, GLUCOSE POC Whole Blood 02/03/2023 9:17 PM CDT [facility] Blood, whole 02/03/2023 9:17 PM CDT 02/03/2023 9:26 PM CDT Zbigniew Marino MD POINT OF CARE TEST ING Performing Organization Address [facility]/ZIP Co de Phone Number [facility] [place] [facility] CLIA# [id number] [address] [place] [address] * (ABNORMAL) POC GLUCOSE (02/03/2023 8:59 PM CDT) GLUCOSE POC 62(L) 74 - 99 mg/dL 02/03/2023 8:59 PM CDT [facility] SPECIMEN SOURCE, GLUCOSE POC Whole Blood 02/03/2023 8:59 PM CDT [facility] COMMENT, GLU POC Notified RN/MD 02/03/2023 8:59 PM CDT [facility] Blood, whole 02/03/2023 8:59 PM CDT 02/03/2023 9:07 PM CDT Zbigniew Marino MD POINT OF CARE TEST ING [facility] [place] [facility]# [id number] [address] [place] [address] * POC GLUCOSE (02/03/2023 6:32 PM CDT) GLUCOSE POC 75 74 - 99 mg/dL 02/03/2023 6:32 PM CDT [facility] LABORATORY [facility] SPECIMEN SOURCE, GLUCOSE POC Whole Blood 02/03/2023 6:32 PM CDT [facility] LABORATORY [facility] Blood, whole 02/03/2023 6:32 PM CDT 02/03/2023 6:45 PM CDT Zbigniew Marino MD POINT OF CARE TEST ING Performing Organization Address [facility] Co de Phone Number [facility] [place] [facility] CLKY# [id number] [address] [place] [address] * RPR (02/03/2023 5:07 PM CDT) [facility] RPR NON-REACTI VE Non-Reacti ve 02/04/2023 11:41 AM CDT [facility] LABORATORY [facility] Blood Venipuncture / Unknown 02/03/2023 5:07 PM CDT 02/03/2023 5:13 PM CDT Zbigniew Marino MD CHEMISTRY ORDERABL ES Performing Organization Address [facility]/ZIP Co de Phone Number [facility] [place] [facility] CLIA# [id number] [address] [place] [address] * (ABNORMAL) POC GLUCOSE (02/03/2023 3:48 PM CDT) GLUCOSE POC 138(H) 74 - 99 mg/dL 02/03/2023 3:48 PM CDT [facility] LABORATORY [facility] SPECIMEN SOURCE, GLUCOSE POC Whole Blood 02/03/2023 3:48 PM CDT [facility] Blood, whole 02/03/2023 3:48 PM CDT 02/03/2023 4:12 PM CDT Zbigniew Marino MD POINT OF CARE TEST ING [facility] LABORATORY SERVICES [facility] CLIA# [id number] [address] [place] [address] * (ABNORMAL) POC GLUCOSE (02/03/2023 2:14 PM CDT) GLUCOSE POC 141(H) 74 - 99 mg/dL 02/03/2023 2:14 PM CDT [facility] SPECIMEN SOURCE, GLUCOSE POC Whole Blood 02/03/2023 2:14 PM CDT [facility] Blood, whole 02/03/2023 2:14 PM CDT 02/03/2023 2:22 PM CDT Zbigniew Marino MD POINT OF CARE TEST ING [facility] [place] SERVICES [facility] CLIA# [id number] [address] [place] [address] * (ABNORMAL) POC GLUCOSE (02/03/2023 12:49 PM CDT) GLUCOSE POC 193(H) 74 - 99 mg/dL 02/03/2023 12:49 PM CDT [facility] LAB[facility]AT[facility] SPECIMEN SOURCE, GLUCOSE POC Whole Blood 02/03/2023 12:49 PM CDT [facility] Blood, whole 02/03/2023 12:4 9 PM CDT 02/03/2023 12:57 PM CDT Zbigniew Marino MD POINT OF CARE TEST ING [facility] LABORATORY SERVICES [facility] CLIA# [id number] [address] [place] [address] * (ABNORMAL) POC GLUCOSE (02/03/2023 11:59 AM CDT) GLUCOSE POC 177(H) 74 - 99 mg/dL 02/03/2023 11:59 AM CDT [facility] SPECIMEN SOURCE, GLUCOSE POC Whole Blood 02/03/2023 11:59 AM CDT [facility] Blood, whole 02/03/2023 11:5 9 AM CDT 02/03/2023 12:07 PM CDT Zbigniew Marino MD POINT OF CARE TEST ING Performing Organization Address [facility] Co de Phone Number [facility] [place] [facility] CLIA# [id number] [address] [place] [address] * (ABNORMAL) POC GLUCOSE (02/03/2023 10:30 AM CDT) GLUCOSE POC 136(H) 74 - 99 mg/dL 02/03/2023 10:30 AM CDT [facility] LABORATORY [facility] SPECIMEN SOURCE, GLUCOSE POC Whole Blood 02/03/2023 10:30 AM CDT [facility] LABORATORY [facility] Blood, whole 02/03/2023 10:3 0 AM CDT 02/03/2023 10:37 AM CDT Zbigniew Marino MD POINT OF CARE TEST ING Performing Organization Address [facility]/ZIP Co de Phone Number [facility] [place] [facility] CLIA# [id number] [address] [place] [address] * (ABNORMAL) POC GLUCOSE (02/03/2023 5:47 AM CDT) GLUCOSE POC 121(H) 74 - 99 mg/dL 02/03/2023 5:47 AM CDT [facility] LAB[facility] SERVICES [facility] SPECIMEN SOURCE, GLUCOSE POC Whole Blood 02/03/2023 5:47 AM CDT [facility] Blood, whole 02/03/2023 5:47 AM CDT 02/03/2023 5:57 AM CDT Zbigniew Marino MD POINT OF CARE TEST ING [facility] LABORATORY SERVICES [facility] CLIA# [id number] [address] [place] [address] * (ABNORMAL) POC GLUCOSE (02/03/2023 4:08 AM CDT) GLUCOSE POC 102(H) 74 - 99 mg/dL 02/03/2023 4:08 AM CDT [facility] SPECIMEN SOURCE, GLUCOSE POC Whole Blood 02/03/2023 4:08 AM CDT [place] [facility] Blood, whole 02/03/2023 4:08 AM CDT 02/03/2023 4:17 AM CDT Zbigniew Marino MD POINT OF CARE TEST ING Performing Organization Address City/[facility]/ZIP Co de Phone Number [facility] [place] SERVICES [facility] CLIA# [id number] [address] [place] [address] * POC GLUCOSE (02/03/2023 2:53 AM CDT) GLUCOSE POC 81 74 - 99 mg/dL 02/03/2023 2:53 AM CDT [facility] SPECIMEN SOURCE, GLUCOSE POC Whole Blood 02/03/2023 2:53 AM CDT [facility] Blood, whole 02/03/2023 2:53 AM CDT 02/03/2023 3:06 AM CDT Zbigniew Marino MD POINT OF CARE TEST ING [facility] LABORATORY [facility] CLIA# [id number] [address] [place] [address] * POC GLUCOSE (02/03/2023 2:08 AM CDT) GLUCOSE POC 79 74 - 99 mg/dL 02/03/2023 2:08 AM CDT [facility] LAB[facility]AT[facility] SPECIMEN SOURCE, GLUCOSE POC Whole Blood 02/03/2023 2:08 AM CDT [facility] Blood, whole 02/03/2023 2:08 AM CDT 02/03/2023 2:23 AM CDT Zbigniew Marino MD POINT OF CARE TEST ING [facility] LABORATORY SERVICES [facility] CLIA# [id number] [address] [place] [address] * (ABNORMAL) POC GLUCOSE (02/03/2023 1:52 AM CDT) GLUCOSE POC 56(L) 74 - 99 mg/dL 02/03/2023 1:52 AM CDT [facility] LAB[facility]AT[facility] SPECIMEN SOURCE, GLUCOSE POC Whole Blood 02/03/2023 1:52 AM CDT [facility]AT[facility] COMMENT, GLU POC Notified RN/MD 02/03/2023 1:52 AM CDT [facility] COMMENT 2, GLU POC To be Repeated 02/03/2023 1:52 AM CDT [facility] Blood, whole 02/03/2023 1:52 AM CDT 02/03/2023 2:01 AM CDT Zbigniew Marino MD POINT OF CARE TEST ING [facility] [place] [facility] CLIA# [id number] [address] [place] [address] * (ABNORMAL) POC GLUCOSE (02/03/2023 12:58 AM CDT) GLUCOSE POC 52(L) 74 - 99 mg/dL 02/03/2023 12:58 AM CDT [place] [facility] SPECIMEN SOURCE, GLUCOSE POC Whole Blood 02/03/2023 12:58 AM CDT [place] [facility] COMMENT, GLU POC Notified RN/MD 02/03/2023 12:58 AM CDT [place] [facility] Blood, whole 02/03/2023 12:5 8 AM CDT 02/03/2023 1:07 AM CDT Zbigniew Marino MD POINT OF CARE TEST ING [facility] LABORATORY SERVICES [facility] CLIA# [id number] [address] [place] [address] * (ABNORMAL) POC GLUCOSE (02/03/2023 12:26 AM CDT) GLUCOSE POC 53(L) 74 - 99 mg/dL 02/03/2023 12:26 AM CDT [place] [facility] SPECIMEN SOURCE, GLUCOSE POC Whole Blood 02/03/2023 12:26 AM CDT [place] [facility] COMMENT, GLU POC Notified RN/MD 02/03/2023 12:26 AM CDT [place] [facility] Blood, whole 02/03/2023 12:2 6 AM CDT 02/03/2023 12:39 AM CDT Zbigniew Marino MD POINT OF CARE TEST ING [facility] LABORATORY SERVICES [facility] CLIA# [id number] [address] [place] [address] * (ABNORMAL) POC GLUCOSE (02/02/2023 10:57 PM CDT) GLUCOSE POC 72(L) 74 - 99 mg/dL 02/02/2023 10:57 PM CDT [place] [facility] SPECIMEN SOURCE, GLUCOSE POC Whole Blood 02/02/2023 10:57 PM CDT [place] [facility]AT[facility] SERVICES [facility] Blood, whole 02/02/2023 10:5 7 PM CDT 02/02/2023 11:06 PM CDT Zbigniew Marino MD POINT OF CARE TEST ING Performing Organization Address [facility] Co de Phone Number [facility] CLIA# [id number] [address] [place] [address] * (ABNORMAL) POC GLUCOSE (02/02/2023 10:33 PM CDT) GLUCOSE POC 53(L) 74 - 99 mg/dL 02/02/2023 10:33 PM CDT [facility] LABORATORY SERVICES [facility] SPECIMEN SOURCE, GLUCOSE POC Whole Blood 02/02/2023 10:33 PM CDT [facility] COMMENT, GLU POC Notified RN/MD 02/02/2023 10:33 PM CDT [facility] LAB[facility] SERVICES [facility] Blood, whole 02/02/2023 10:3 3 PM CDT 02/02/2023 10:45 PM CDT Zbigniew Marino MD POINT OF CARE TEST ING Performing Organization Address [facility] Co de Phone Number [facility] [place] [facility] CLIA# [id number] [address] [place] [address] * (ABNORMAL) POC GLUCOSE (02/02/2023 10:12 PM CDT) GLUCOSE POC 59(L) 74 - 99 mg/dL 02/02/2023 10:12 PM CDT [facility] LABORATORY SERVICES [facility] SPECIMEN SOURCE, GLUCOSE POC Whole Blood 02/02/2023 10:12 PM CDT [facility] COMMENT, GLU POC Notified RN/MD 02/02/2023 10:12 PM CDT [facility] LABORATORY [facility] Blood, whole 02/02/2023 10:1 2 PM CDT 02/02/2023 10:33 PM CDT Zbigniew Marino MD POINT OF CARE TEST ING Performing Organization Address City/[facility]/ZIP Co de Phone Number [facility] [place] [facility] CLIA# [id number] [address] [place] [address] * (ABNORMAL) POC GLUCOSE (02/02/2023 8:50 PM CDT) GLUCOSE POC 73(L) 74 - 99 mg/dL 02/02/2023 8:50 PM CDT [place] [facility]ORAT[facility] SERVICES [facility] SPECIMEN SOURCE, GLUCOSE POC Whole Blood 02/02/2023 8:50 PM CDT [facility] LABORATORY SERVICES [facility] Blood, whole 02/02/2023 8:50 PM CDT 02/02/2023 9:21 PM CDT Zbigniew Marino MD POINT OF CARE TEST ING Performing Organization Address [facility]/ZIP Co de Phone Number [facility] [place] [facility] CLIA# [id number] [address] [place] [address] * (ABNORMAL) POC GLUCOSE (02/02/2023 8:25 PM CDT) GLUCOSE POC 63(L) 74 - 99 mg/dL 02/02/2023 8:25 PM CDT [facility] SPECIMEN SOURCE, GLUCOSE POC Whole Blood 02/02/2023 8:25 PM CDT [place] [facility] COMMENT, GLU POC Notified RN/MD 02/02/2023 8:25 PM CDT [facility] Blood, whole 02/02/2023 8:25 PM CDT 02/02/2023 8:53 PM CDT Zbigniew Marino MD POINT OF CARE TEST ING Performing Organization Address City/[facility]/ZIP Co de Phone Number [facility] LABORATORY [facility] CLIA# [id number] [address] [place] [address] * (ABNORMAL) POC GLUCOSE (02/02/2023 8:02 PM CDT) GLUCOSE POC 56(L) 74 - 99 mg/dL 02/02/2023 8:02 PM CDT [facility] LABORATORY [facility] SPECIMEN SOURCE, GLUCOSE POC Whole Blood 02/02/2023 8:02 PM CDT [facility] LABORATORY SERVICES [facility] COMMENT, GLU POC Notified RN/MD 02/02/2023 8:02 PM CDT [facility] LABORATORY SERVICES [facility] Blood, whole 02/02/2023 8:02 PM CDT 02/02/2023 8:53 PM CDT Zbigniew Marino MD POINT OF CARE TEST ING [facility] CLIA# [id number] [address] [place] [address] * (ABNORMAL) POC GLUCOSE (02/02/2023 4:19 PM CDT) GLUCOSE POC 100(H) 74 - 99 mg/dL 02/02/2023 4:19 PM CDT [facility] LABORATORY [facility] SPECIMEN SOURCE, GLUCOSE POC Whole Blood 02/02/2023 4:19 PM CDT [facility] LABORATORY [facility] Blood, whole 02/02/2023 4:19 PM CDT 02/02/2023 4:26 PM CDT Zbigniew Marino MD POINT OF CARE TEST ING [facility] CLIA# [id number] [address] [place] [address] * POC GLUCOSE (02/02/2023 3:09 PM CDT) GLUCOSE POC 81 74 - 99 mg/dL 02/02/2023 3:09 PM CDT [facility] LABORATORY [facility] SPECIMEN SOURCE, GLUCOSE POC Whole Blood 02/02/2023 3:09 PM CDT [place] [facility] COMMENT, GLU POC Notified RN/MD 02/02/2023 3:09 PM CDT [facility] Blood, whole 02/02/2023 3:09 PM CDT 02/02/2023 3:23 PM CDT Zbigniew Marino MD POINT OF CARE TEST ING Performing Organization Address City/[facility]/ZIP Co de Phone Number [facility] LABORATORY [facility] CLIA# [id number] [address] [place] [address] * POC GLUCOSE (02/02/2023 10:59 AM CDT) GLUCOSE POC 83 74 - 99 mg/dL 02/02/2023 10:59 AM CDT [facility] SPECIMEN SOURCE, GLUCOSE POC Whole Blood 02/02/2023 10:59 AM CDT [facility] LAB[facility] SERVICES [facility] COMMENT, GLU POC Notified RN/ 02/02/2023 10:59 AM CDT [facility] Blood, whole 02/02/2023 10:5 9 AM CDT 02/02/2023 11:11 AM CDT Zbigniew Marino MD POINT OF CARE TEST ING Performing Organization Address [facility]/ZIP Co de Phone Number [facility] LABORATORY [facility] CLIA# [id number] [address] [place] [address] * POC GLUCOSE (02/02/2023 9:34 AM CDT) GLUCOSE POC 79 74 - 99 mg/dL 02/02/2023 9:34 AM CDT [facility] SPECIMEN SOURCE, GLUCOSE POC Whole Blood 02/02/2023 9:34 AM CDT [facility] Blood, whole 02/02/2023 9:34 AM CDT 02/02/2023 9:51 AM CDT Zbigniew Marino MD POINT OF CARE TEST ING Performing Organization Address [facility]/ZIP Co de Phone Number [facility]# [id number] [address] [place] [address] * PHOSPHORUS (02/02/2023 9:09 AM CDT) PHOSPHORUS 3.1 2.5 - 4.5 mg/dL 02/02/2023 10:02 AM CDT [facility] LABORATORY [facility] Blood Venipuncture / Unknown 02/02/2023 9:09 AM CDT 02/02/2023 9:14 AM CDT Zbigniew Marino MD CHEMISTRY ORDERABL ES Performing Organization Address [facility] de Phone Number [facility] [place] [facility]# [id number] [address] [place] [address] * MAGNESIUM LEVEL (02/02/2023 9:09 AM CDT) MAGNESIUM 1.9 1.6 - 2.6 mg/dL 02/02/2023 10:02 AM CDT [facility] [place] [facility] Blood Venipuncture / Unknown 02/02/2023 9:09 AM CDT 02/02/2023 9:14 AM CDT Zbigniew Marino MD CHEMISTRY ORDERABL ES Performing Organization Address [facility]/ZIP Co de Phone Number [facility] [place] [facility]# [id number] [address] [place] [address] * (ABNORMAL) BASIC METABOLIC PANEL (02/02/2023 9:09 AM CDT) SODIUM 136 136 - 145 mmol/L 02/02/2023 10:02 AM CDT [facility] LABORATORY [facility] POTASSIUM 3.6 3.5 - 5.0 mmol/L 02/02/2023 10:02 AM [facility] LABORATORY SERVICES [facility] CHLORIDE 104 98 - 107 mmol/L 02/02/2023 10:02 AM [facility] LABORATORY [facility] - . [facility] CO2 24 22 - 29 mmol/L 02/02/2023 10:02 AM [facility] LABORATORY [facility] CALCIUM 8.8 8.6 - 10.2 mg/dL 02/02/2023 10:02 AM [facility] LABORATORY [facility] BUN 3(L) 6 - 20 mg/dL 02/02/2023 10:02 AM [facility] LABORATORY [facility] CREATININE 0.50(L) 0.51 - 0.95 mg/dL 02/02/2023 10:02 AM [facility] [place] [facility] GLUCOSE 76 74 - 99 mg/dL 02/02/2023 10:02 AM [facility] LABORATORY [facility] GFR >60 >=60 mL/min/1.7 3 sq meter 02/02/2023 10:02 AM [facility] LABORATORY [facility] Comment:eGFR calculated with 2020 CKD-EPI equation. Vegetarian diet, extremely high or low muscle mass, and may affect results. Cystatin C with Glomerular Filtration Rate is a suitable alternative for these patients. ANION GAP 8 8 - 16 mmol/L 02/02/2023 10:02 AM [facility] [place] [facility] Blood Venipuncture / Unknown 02/02/2023 9:09 AM CDT 02/02/2023 9:14 AM CDT Zbigniew Marino MD CHEMISTRY ORDERABL ES [facility] [place] [facility] CLIA# [id number] [address] [facility] [address] [place] [address] * POC GLUCOSE (02/02/2023 8:08 AM CDT) [facility] GLUCOSE POC 77 74 - 99 mg/dL 02/02/2023 8:08 AM T [facility] [place] [facility] SPECIMEN SOURCE, GLUCOSE POC Whole Blood 02/02/2023 8:08 AM CDT [place] [facility] COMMENT, GLU POC Notified RN/MD 02/02/2023 8:08 AM CDT [place] [facility] Blood, whole 02/02/2023 8:08 AM CDT 02/02/2023 8:22 AM CDT Zbigniew Marino MD POINT OF CARE TEST ING Performing Organization Address [facility]/ZIP Co de Phone Number [facility] [employer] [facility] CLIA# [id number] [address] [address] * POC GLUCOSE (02/02/2023 5:57 AM CDT) [facility] GLUCOSE POC 91 74 - 99 mg/dL 02/02/2023 5:57 AM CDT [place] [facility] SPECIMEN SOURCE, GLUCOSE POC Whole Blood 02/02/2023 5:57 AM CDT [place] [facility] Blood, whole 02/02/2023 5:57 AM CDT 02/02/2023 6:04 AM CDT Zbigniew Marino MD POINT OF CARE TEST ING Performing Organization Address [facility] Co de Phone Number [facility]# [id number] [address] [place] [address] * (ABNORMAL) CBC WITH DIFFERENTIAL (02/02/2023 4:55 AM CDT) [facility] WBC 5.5 4.0 - 9.8 K/uL 02/02/2023 5:46 AM CDT [place] [facility] RBC 3.15(L) 3.90 - 4.90 M/uL 02/02/2023 5:46 AM CDT [facility] HEMOGLOBIN 8.3(L) 11.8 - 14.8 g/dL 02/02/2023 5:46 AM CDT [facility] HEMATOCRIT 25.9(L) 35.5 - 44.0 % 02/02/2023 5:46 AM CDT [facility] MCV 82.2 82.0 - 99.0 fL 02/02/2023 5:46 AM CDT [facility] MCH 26.3(L) 27.2 - 32.6 pg 02/02/2023 5:46 AM CDT [facility] MCHC 32.0 31.5 - 35.5 g/dL 02/02/2023 5:46 AM CDT [facility] RDW 16.8(H) 11.5 - 14.5 % 02/02/2023 5:46 AM CDT [facility] RDW-STDEV 48.6 37.1 - 48.7 fL 02/02/2023 5:46 AM CDT [facility] PLATELETS 213 140 - 350 K/uL 02/02/2023 5:46 AM CDT [facility] MPV 9.7 9.3 - 12.4 fL 02/02/2023 5:46 AM CDT [place] [facility] NEUTROPHILS 49 % 02/02/2023 5:46 AM CDT [facility] LYMPHOCYTES 38 % 02/02/2023 5:46 AM CDT [facility] MONOCYTES 9 % 02/02/2023 5:46 AM CDT [facility] EOSINOPHILS 1 % 02/02/2023 5:46 AM CDT [place] [facility] BASOPHILS 0 % 02/02/2023 5:46 AM CDT [place] [facility] IMMATURE GRANULOCYTES 3 % 02/02/2023 5:46 AM CDT [facility] Comment:IG (Immature Granulo cyte) count includes Metamyelocytes, Myelocytes, and Promyelocytes NEUTROPHIL ABSOLUTE 2.69 1.90 - 7.00 K/uL 02/02/2023 5:46 AM CDT [facility] LYMPHOCYTE ABSOLUTE 2.12 0.70 - 4.50 K/uL 02/02/2023 5:46 AM CDT [place] [facility] MONOCYTE ABSOLUTE 0.52 0.10 - 1.30 K/uL 02/02/2023 5:46 AM CDT [facility] EOSINOPHIL ABSOLUTE 0.03 0.00 - 0.70 K/uL 02/02/2023 5:46 AM CDT [place] [facility] BASOPHILS ABSOLUTE 0.02 0.00 - 0.20 K/uL 02/02/2023 5:46 AM CDT [facility] - . [facility] IMMATURE GRANULOCYTES ABSOLUTE 0.16(H) 0.00 - 0.03 K/uL 02/02/2023 5:46 AM CDT [facility] Blood Venipuncture / Unknown 02/02/2023 4:55 AM CDT 02/02/2023 5:03 AM CDT Manuel Goldstein MD HEMATOLOGY ORDERABLE S [facility] [place] [facility] CLIA# [id number] [address] [place] [address] * POC GLUCOSE (02/02/2023 3:59 AM CDT) GLUCOSE POC 74 74 - 99 mg/dL 02/02/2023 3:59 AM CDT [facility] SPECIMEN SOURCE, GLUCOSE POC Whole Blood 02/02/2023 3:59 AM CDT [facility] Blood, whole 02/02/2023 3:59 AM CDT 02/02/2023 4:08 AM CDT Zbigniew Marino MD POINT OF CARE TEST ING [facility] [place] [facility] CLIA# [id number] [address] [place] [address] * POC GLUCOSE (02/02/2023 2:01 AM CDT) GLUCOSE POC 75 74 - 99 mg/dL 02/02/2023 2:01 AM CDT [facility] LABORATORY [facility] SPECIMEN SOURCE, GLUCOSE POC Whole Blood 02/02/2023 2:01 AM CDT [place] [facility] Blood, whole 02/02/2023 2:01 AM CDT 02/02/2023 2:08 AM CDT Zbigniew Marino MD POINT OF CARE TEST ING [facility] LABORATORY SERVICES [facility] CLIA# [id number] [address] [place] [address] * POC GLUCOSE (02/02/2023 1:31 AM CDT) GLUCOSE POC 84 74 - 99 mg/dL 02/02/2023 1:31 AM CDT [place] [facility] SPECIMEN SOURCE, GLUCOSE POC Whole Blood 02/02/2023 1:31 AM CDT [place] [facility] Blood, whole 02/02/2023 1:31 AM CDT 02/02/2023 1:41 AM CDT Zbigniew Marino MD POINT OF CARE TEST ING Performing Organization Address [facility]/ZIP Co de Phone Number [facility] [place] [facility] CLIA# [id number] [address] [place] [address] * POC GLUCOSE (02/02/2023 1:01 AM CDT) GLUCOSE POC 83 74 - 99 mg/dL 02/02/2023 1:01 AM CDT [place] [facility] SPECIMEN SOURCE, GLUCOSE POC Whole Blood 02/02/2023 1:01 AM CDT [place] [facility] Blood, whole 02/02/2023 1:01 AM CDT 02/02/2023 1:10 AM CDT Zbigniew Marino MD POINT OF CARE TEST ING [facility] LABORATORY [facility] CLIA# [id number] [address] [place] [address] * (ABNORMAL) POC GLUCOSE (02/02/2023 12:33 AM CDT) GLUCOSE POC 70(L) 74 - 99 mg/dL 02/02/2023 12:33 AM CDT [facility]ATORY [facility] SPECIMEN SOURCE, GLUCOSE POC Whole Blood 02/02/2023 12:33 AM CDT [facility] Blood, whole 02/02/2023 12:3 3 AM CDT 02/02/2023 12:41 AM CDT Zbigniew Marino MD POINT OF CARE TEST ING Performing Organization Address [facility]/ZIP Co de Phone Number [facility] [place] [facility] CLIA# [id number] [address] [place] [address] * (ABNORMAL) POC GLUCOSE (02/02/2023 12:14 AM CDT) GLUCOSE POC 59(L) 74 - 99 mg/dL 02/02/2023 12:14 AM CDT [facility] SPECIMEN SOURCE, GLUCOSE POC Whole Blood 02/02/2023 12:14 AM CDT [facility] COMMENT, GLU POC To be Repeated 02/02/2023 12:14 AM CDT [facility] Blood, whole 02/02/2023 12:1 4 AM CDT 02/02/2023 12:24 AM CDT Zbigniew Marino MD POINT OF CARE TEST ING [facility] [place] [facility] CLIA# [id number] [address] [place] [address] * (ABNORMAL) POC GLUCOSE (02/01/2023 11:51 PM CDT) GLUCOSE POC 63(L) 74 - 99 mg/dL 02/01/2023 11:51 PM CDT [facility]ATORY [facility] SPECIMEN SOURCE, GLUCOSE POC Whole Blood 02/01/2023 11:51 PM CDT [facility]ORY [facility] COMMENT, GLU POC To be Repeated 02/01/2023 11:51 PM CDT [facility] Blood, whole 02/01/2023 11:5 1 PM CDT 02/02/2023 12:00 AM CDT Zbigniew Marino MD POINT OF CARE TEST ING Performing Organization Address [facility]/ZIP Co de Phone Number [facility] CLIA# [id number] [address] [place] [address] * POC GLUCOSE (02/01/2023 9:55 PM CDT) GLUCOSE POC 88 74 - 99 mg/dL 02/01/2023 9:55 PM CDT [facility] LABORATORY [facility] SPECIMEN SOURCE, GLUCOSE POC Whole Blood 02/01/2023 9:55 PM CDT [facility] LABORATORY [facility] Blood, whole 02/01/2023 9:55 PM CDT 02/01/2023 10:03 PM CDT Zbigniew Marino MD POINT OF CARE TEST ING Performing Organization Address [facility] Co de Phone Number [facility] CLIA# [id number] [address] [place] [address] * PHOSPHORUS (02/01/2023 9:30 PM CDT) PHOSPHORUS 3.1 2.5 - 4.5 mg/dL 02/01/2023 10:27 PM CDT [facility] LABORATORY [facility] Blood Venipuncture / Unknown 02/01/2023 9:30 PM CDT 02/01/2023 9:40 PM CDT Zbigniew Marino MD CHEMISTRY ORDERABL ES [facility] [place] SERVICES [facility]# [id number] [address] [place] [address] * MAGNESIUM LEVEL (02/01/2023 9:30 PM CDT) MAGNESIUM 2.1 1.6 - 2.6 mg/dL 02/01/2023 10:27 PM CDT [place] [facility] Blood Venipuncture / Unknown 02/01/2023 9:30 PM CDT 02/01/2023 9:40 PM CDT Zbigniew Marino MD CHEMISTRY ORDERABL ES [facility] [place] [facility]# [id number] [address] [place] [address] * (ABNORMAL) BASIC METABOLIC PANEL (02/01/2023 9:30 PM CDT) SODIUM 140 136 - 145 mmol/L 02/01/2023 10:27 PM CDT [place] [facility] POTASSIUM 3.8 3.5 - 5.0 mmol/L 02/01/2023 10:27 PM CDT [place] [facility] - . [facility] CHLORIDE 109(H) 98 - 107 mmol/L 02/01/2023 10:27 PM CDT [place] [facility] CO2 23 22 - 29 mmol/L 02/01/2023 10:27 PM CDT [place] [facility] CALCIUM 8.4(L) 8.6 - 10.2 mg/dL 02/01/2023 10:27 PM CDT [place] [facility] BUN 4(L) 6 - 20 mg/dL 02/01/2023 10:27 PM CDT [place] [facility] CREATININE 0.51 0.51 - 0.95 mg/dL 02/01/2023 10:27 PM CDT [place] [facility] GLUCOSE 79 74 - 99 mg/dL 02/01/2023 10:27 PM CDT [place] [facility] GFR >60 >=60 mL/min/1.7 3 sq meter 02/01/2023 10:27 PM CDT [facility] LABORATORY [facility] Comment:eGFR calculated with 2020 CKD-EPI equation. Vegetarian diet, extremely high or low muscle mass, and may affect results. Cystatin C with Glomerular Filtration Rate is a suitable alternative for these patients. ANION GAP 8 8 - 16 mmol/L 02/01/2023 10:27 PM CDT [facility] LABORATORY [facility] Blood Venipuncture / Unknown 02/01/2023 9:30 PM CDT 02/01/2023 9:40 PM CDT Zbigniew Marino MD CHEMISTRY ORDERABL ES Performing Organization Address [facility] Co de Phone Number [id number] [address] [place] [address] * POC GLUCOSE (02/01/2023 9:28 PM CDT) GLUCOSE POC 97 74 - 99 mg/dL 02/01/2023 9:28 PM CDT [facility] LABORATORY [facility] SPECIMEN SOURCE, GLUCOSE POC Whole Blood 02/01/2023 9:28 PM CDT [facility] LABORATORY [facility] Blood, whole 02/01/2023 9:28 PM CDT 02/01/2023 9:35 PM CDT Zbigniew Marino MD POINT OF CARE TEST ING Performing Organization Address [facility]/ZIP Co de Phone Number [facility] CLIA# [id number] [address] [place] [address] * POC GLUCOSE (02/01/2023 8:40 PM CDT) GLUCOSE POC 75 74 - 99 mg/dL 02/01/2023 8:40 PM CDT [facility] LABORATORY [facility] SPECIMEN SOURCE, GLUCOSE POC Whole Blood 02/01/2023 8:40 PM CDT [facility] LABORATORY [facility] Blood, whole 02/01/2023 8:40 PM CDT 02/01/2023 8:48 PM CDT Zbigniew Marino MD POINT OF CARE TEST ING [facility] LABORATORY [facility] CLIA# [id number] [address] [place] [address] * POC GLUCOSE (02/01/2023 8:09 PM CDT) GLUCOSE POC 78 74 - 99 mg/dL 02/01/2023 8:09 PM CDT [facility]AT[facility] SPECIMEN SOURCE, GLUCOSE POC Whole Blood 02/01/2023 8:09 PM CDT [facility] Blood, whole 02/01/2023 8:09 PM CDT 02/01/2023 8:17 PM CDT Zbigniew Marino MD POINT OF CARE TEST ING Performing Organization Address [facility]/ZIP Co de Phone Number [facility] [place] [facility] CLIA# [id number] [address] [place] [address] * (ABNORMAL) POC GLUCOSE (02/01/2023 7:54 PM CDT) GLUCOSE POC 58(L) 74 - 99 mg/dL 02/01/2023 7:54 PM CDT [facility] SPECIMEN SOURCE, GLUCOSE POC Whole Blood 02/01/2023 7:54 PM CDT [place] [facility] COMMENT, GLU POC To be Repeated 02/01/2023 7:54 PM CDT [place] [facility] Blood, whole 02/01/2023 7:54 PM CDT 02/01/2023 8:02 PM CDT Zbigniew Marino MD POINT OF CARE TEST ING [facility] LABORATORY SERVICES [facility] CLIA# [id number] [address] [place] [address] * (ABNORMAL) POC GLUCOSE (02/01/2023 7:34 PM CDT) GLUCOSE POC 65(L) 74 - 99 mg/dL 02/01/2023 7:34 PM CDT [facility] SPECIMEN SOURCE, GLUCOSE POC Whole Blood 02/01/2023 7:34 PM CDT [facility] LABORATORY SERVICES [facility] COMMENT, GLU POC Notified RN/ 02/01/2023 7:34 PM CDT [facility] LABORATORY SERVICES [facility] Blood, whole 02/01/2023 7:34 PM CDT 02/01/2023 7:43 PM CDT Zbigniew Marino MD POINT OF CARE TEST ING Performing Organization Address City/[facility]/ZIP Co de Phone Number [facility] [place] [facility] CLIA# [id number] [address] [place] [address] * (ABNORMAL) POC GLUCOSE (02/01/2023 7:10 PM CDT) GLUCOSE POC 54(L) 74 - 99 mg/dL 02/01/2023 7:10 PM CDT [facility] LABORATORY SERVICES [facility] SPECIMEN SOURCE, GLUCOSE POC Whole Blood 02/01/2023 7:10 PM CDT [facility] LABORATORY SERVICES [facility] COMMENT, GLU POC Notified RN/ 02/01/2023 7:10 PM CDT [facility] LABORATORY SERVICES [facility] Blood, whole 02/01/2023 7:10 PM CDT 02/01/2023 7:18 PM CDT Zbigniew Marino MD POINT OF CARE TEST ING [facility] CLIA# [id number] [address] [place] [address] * (ABNORMAL) POC GLUCOSE (02/01/2023 6:51 PM CDT) GLUCOSE POC 60(L) 74 - 99 mg/dL 02/01/2023 6:51 PM CDT [facility] LABORATORY [facility] SPECIMEN SOURCE, GLUCOSE POC Whole Blood 02/01/2023 6:51 PM CDT [facility] LABORATORY [facility] COMMENT, GLU POC Notified RN/ 02/01/2023 6:51 PM CDT [facility] LABORATORY [facility] Blood, whole 02/01/2023 6:51 PM CDT 02/01/2023 7:00 PM CDT Zbigniew Marino MD POINT OF CARE TEST ING [facility] CLIA# [id number] [address] [place] [address] * (ABNORMAL) POC GLUCOSE (02/01/2023 6:27 PM CDT) [facility] GLUCOSE POC 50(L) 74 - 99 mg/dL 02/01/2023 6:27 PM CDT [facility] LABORATORY [facility] SPECIMEN SOURCE, GLUCOSE POC Whole Blood 02/01/2023 6:27 PM CDT [facility] LABORATORY [facility] COMMENT, GLU POC Notified RN/ 02/01/2023 6:27 PM CDT [facility] LABORATORY [facility] COMMENT 2, GLU POC Repeated Glucose 02/01/2023 6:27 PM CDT [facility] LABORATORY [facility] Blood, whole 02/01/2023 6:27 PM CDT 02/01/2023 6:34 PM CDT Zbigniew Marino MD POINT OF CARE TEST ING [facility] CLIA# [id number] [address] [place] [address] * POC GLUCOSE (02/01/2023 4:02 PM CDT) [facility] Signature GLUCOSE POC 83 74 - 99 mg/dL 02/01/2023 4:02 PM CDT [facility] LABORATORY [facility] SPECIMEN SOURCE, GLUCOSE POC Whole Blood 02/01/2023 4:02 PM CDT [facility] LABORATORY [facility] Blood, whole 02/01/2023 4:02 PM CDT 02/01/2023 4:11 PM CDT Zbigniew Marino MD POINT OF CARE TEST ING Performing Organization Address [facility]/ZIP Co de Phone Number [facility] CLIA# [id number] [address] [place] [address] * (ABNORMAL) POC GLUCOSE (02/01/2023 2:41 PM CDT) GLUCOSE POC 105(H) 74 - 99 mg/dL 02/01/2023 2:41 PM CDT [facility] LABORATORY [facility] SPECIMEN SOURCE, GLUCOSE POC Whole Blood 02/01/2023 2:41 PM CDT [facility] LABORATORY [facility] Blood, whole 02/01/2023 2:41 PM CDT 02/01/2023 3:02 PM CDT Zbigniew Marino MD POINT OF CARE TEST ING Performing Organization Address [facility] Co de Phone Number [facility] CLIA# [id number] [address] [place] [address] * EXTRA TUBE (SST/GOLD) (02/01/2023 1:18 PM CDT) Blood Venipuncture / Unknown 02/01/2023 1:18 PM CDT 02/01/2023 2:04 PM CDT External Provider [facility] CHEMISTRY ORDERA BLES Performing Organization Address [facility]/ZIP Co de Phone Number [facility] CLIA# [id number] [address] [place] [address] * (ABNORMAL) POC GLUCOSE (02/01/2023 11:13 AM CDT) GLUCOSE POC 156(H) 74 - 99 mg/dL 02/01/2023 11:13 AM CDT [facility] LAB[facility]ATORY SERVICES [facility] SPECIMEN SOURCE, GLUCOSE POC Whole Blood 02/01/2023 11:13 AM CDT [facility] Blood, whole 02/01/2023 11:1 3 AM CDT 02/01/2023 11:23 AM CDT Zbigniew Marino MD POINT OF CARE TEST ING Performing Organization Address City/[facility]/ZIP Co de Phone Number [facility] CLIA# [id number] [address] [place] [address] * (ABNORMAL) POC GLUCOSE (02/01/2023 9:49 AM CDT) GLUCOSE POC 155(H) 74 - 99 mg/dL 02/01/2023 9:49 AM CDT [facility] LABORATORY [facility] SPECIMEN SOURCE, GLUCOSE POC Whole Blood 02/01/2023 9:49 AM CDT [facility] LABORATORY [facility] Blood, whole 02/01/2023 9:49 AM CDT 02/01/2023 10:03 AM CDT Zbigniew Marino MD POINT OF CARE TEST ING [facility] [place] [facility]# [id number] [address] [place] [address] * FERRITIN (02/01/2023 8:39 AM CDT) FERRITIN 48.0 13.0 - 150.0 ng/mL 02/01/2023 9:40 AM CDT [facility] LABORATORY SERVICES [facility] Blood Venipuncture / Unknown 02/01/2023 8:39 AM CDT 02/01/2023 8:49 AM CDT Zbigniew Marino MD CHEMISTRY ORDERABL ES [facility]# [id number] [address] [place] [address] * (ABNORMAL) IRON, TIBC, AND PERCENT SATURATION (02/01/2023 8:39 AM CDT) IRON 34(L) 37 - 145 ug/dL 02/01/2023 9:36 AM CDT [facility] LABORATORY SERVICES [facility] TIBC 413 250 - 450 ug/dL 02/01/2023 9:36 AM CDT [facility] LABORATORY SERVICES [facility] IRON % SATURATION 8(L) 15 - 50 % 02/01/2023 9:36 AM CDT [facility] LABORATORY SERVICES [facility] TRANSFERRIN 325 200 - 360 mg/dL 02/01/2023 9:36 AM CDT [facility] LABORATORY SERVICES [facility] Blood Venipuncture / Unknown 02/01/2023 8:39 AM CDT 02/01/2023 8:49 AM CDT Zbigniew Marino MD CHEMISTRY ORDERABL ES Performing Organization Address [facility]/ZIP Co de Phone Number [facility]# [id number] [address] [place] [address] * PHOSPHORUS (02/01/2023 8:39 AM CDT) PHOSPHORUS 4.0 2.5 - 4.5 mg/dL 02/01/2023 9:36 AM CDT [facility] LABORATORY SERVICES [facility] Blood Venipuncture / Unknown 02/01/2023 8:39 AM CDT 02/01/2023 8:49 AM CDT Zbigniew Marino MD CHEMISTRY ORDERABL ES [facility]# [id number] [address] [place] [address] * (ABNORMAL) MAGNESIUM LEVEL (02/01/2023 8:39 AM CDT) MAGNESIUM 2.9(H) 1.6 - 2.6 mg/dL 02/01/2023 9:35 AM CDT [facility] Blood Venipuncture / Unknown 02/01/2023 8:39 AM CDT 02/01/2023 8:49 AM CDT Zbigniew Marino MD CHEMISTRY ORDERABL ES [facility] LABORATORY SERVICES [facility]# [id number] [address] [place] [address] * (ABNORMAL) BASIC METABOLIC PANEL (02/01/2023 8:39 AM CDT) Pathologist [facility] SODIUM 137 136 - 145 mmol/L 02/01/2023 9:35 AM CDT [facility] LABORATORY SERVICES [facility] POTASSIUM 3.9 3.5 - 5.0 mmol/L 02/01/2023 9:35 AM CDT [facility] CHLORIDE 107 98 - 107 mmol/L 02/01/2023 9:35 AM CDT [facility] CO2 19(L) 22 - 29 mmol/L 02/01/2023 9:35 AM CDT [facility] LABORATORY SERVICES [facility]. [facility] CALCIUM 8.2(L) 8.6 - 10.2 mg/dL 02/01/2023 9:35 AM CDT [facility] LABORATORY SERVICES - . [facility] BUN 3(L) 6 - 20 mg/dL 02/01/2023 9:35 AM CDT [place] [facility] - . [facility] CREATININE 0.53 0.51 - 0.95 mg/dL 02/01/2023 9:35 AM CDT [facility] LABORATORY SERVICES - . [facility] GLUCOSE 174(H) 74 - 99 mg/dL 02/01/2023 9:35 AM CDT [place] [facility] - . [place] GFR >60 >=60 mL/min/1.7 3 sq meter 02/01/2023 9:35 AM T [facility] LABORATORY [facility] Comment:eGFR calculated with 2020 CKD-EPI equation. Vegetarian diet, extremely high or low muscle mass, and may affect results. Cystatin C with Glomerular Filtration Rate is a suitable alternative for these patients. ANION GAP 11 8 - 16 mmol/L 02/01/2023 9:35 AM T [facility] [place] [facility] Blood Venipuncture / Unknown 02/01/2023 8:39 AM CDT 02/01/2023 8:49 AM CDT Zbigniew Marino MD CHEMISTRY ORDERABL ES [facility] [place] [facility] CLIA# [id number] [address] [place] [address] * (ABNORMAL) CBC WITH DIFFERENTIAL (02/01/2023 8:39 AM CDT) WBC 6.1 4.0 - 9.8 K/uL 02/01/2023 9:02 AM [facility] LABORATORY [facility] RBC 3.67(L) 3.90 - 4.90 M/uL 02/01/2023 9:02 AM [facility] LABORATORY [facility] HEMOGLOBIN 9.4(L) 11.8 - 14.8 g/dL 02/01/2023 9:02 AM [facility] [employer] [facility] HEMATOCRIT 30.7(L) 35.5 - 44.0 % 02/01/2023 9:02 AM [facility] LABOR[facility]ORY [facility] MCV 83.7 82.0 - 99.0 fL 02/01/2023 9:02 AM [facility] LABOR[facility]ORY [facility] MCH 25.6(L) 27.2 - 32.6 pg 02/01/2023 9:02 AM [facility] LABORATORY [facility] MCHC 30.6(L) 31.5 - 35.5 g/dL 02/01/2023 9:02 AM [facility] LABORATORY [facility] RDW 16.6(H) 11.5 - 14.5 % 02/01/2023 9:02 AM [facility] LABORATORY SERVICES - [facility] RDW-STDEV 49.2(H) 37.1 - 48.7 fL 02/01/2023 9:02 AM [facility] LABORATORY SERVICES - [facility] PLATELETS 261 140 - 350 K/uL 02/01/2023 9:02 AM [facility] LABORATORY SERVICES - [facility] MPV 9.4 9.3 - 12.4 fL 02/01/2023 9:02 AM [facility] LABORATORY SERVICES - [facility] NEUTROPHILS 51 % 02/01/2023 9:02 AM [facility] LABORATORY SERVICES - [facility] LYMPHOCYTES 35 % 02/01/2023 9:02 AM [facility] LAB[facility]ATORY SERVICES - [facility] MONOCYTES 10 % 02/01/2023 9:02 AM [facility] LABORATORY SERVICES - [facility] EOSINOPHILS 0 % 02/01/2023 9:02 AM [facility] LABORATORY SERVICES - [facility] BASOPHILS 1 % 02/01/2023 9:02 AM [facility] - . [facility] IMMATURE GRANULOCYTES 3 % 02/01/2023 9:02 AM [facility] LABORATORY SERVICES - . [facility] Comment:IG (Immature Granulo cyte) count includes Metamyelocytes, Myelocytes, and Promyelocytes NEUTROPHIL ABSOLUTE 3.11 1.90 - 7.00 K/uL 02/01/2023 9:02 AM [facility] LABORATORY SERVICES - . [facility] LYMPHOCYTE ABSOLUTE 2.13 0.70 - 4.50 K/uL 02/01/2023 9:02 AM [facility] LABORATORY SERVICES - . [facility] MONOCYTE ABSOLUTE 0.61 0.10 - 1.30 K/uL 02/01/2023 9:02 AM [facility] LABORATORY SERVICES - . [facility] EOSINOPHIL ABSOLUTE 0.02 0.00 - 0.70 K/uL 02/01/2023 9:02 AM [facility] LABORATORY SERVICES [facility] BASOPHILS ABSOLUTE 0.03 0.00 - 0.20 K/uL 02/01/2023 9:02 AM [facility] LABORATORY SERVICES - . [facility] IMMATURE GRANULOCYTES ABSOLUTE 0.18(H) 0.00 - 0.03 K/uL 02/01/2023 9:02 AM [facility] LABORATORY SERVICES - . [facility] Blood Venipuncture / Unknown 02/01/2023 8:39 AM CDT 02/01/2023 8:49 AM CDT Manuel Goldstein MD HEMATOLOGY ORDERABLE S [facility] LABORATORY [facility] CLIA# [id number] [address] [place] [address] * (ABNORMAL) POC GLUCOSE (02/01/2023 7:32 AM CDT) GLUCOSE POC 156(H) 74 - 99 mg/dL 02/01/2023 7:32 AM CDT [facility]ORY [facility], GLUCOSE POC Whole Blood 02/01/2023 7:32 AM CDT [facility] SERVICES [facility] Blood, whole 02/01/2023 7:32 AM CDT 02/01/2023 7:41 AM CDT Zbigniew Marino MD POINT OF CARE TEST ING Performing Organization Address [facility]/ZIP Co de Phone Number [facility] LABORATORY [facility] CLIA# [id number] [address] [place] [address] * (ABNORMAL) POC GLUCOSE (02/01/2023 5:32 AM CDT) GLUCOSE POC 114(H) 74 - 99 mg/dL 02/01/2023 5:32 AM CDT [facility] LABORATORY SERVICES [facility] SPECIMEN SOURCE, GLUCOSE POC Whole Blood 02/01/2023 5:32 AM CDT [facility]ORY SERVICES [facility] Blood, whole 02/01/2023 5:32 AM CDT 02/01/2023 5:40 AM CDT Zbigniew Marino MD POINT OF CARE TEST ING [facility] LABORATORY [facility] CLIA# [id number] [address] [place] [address] * (ABNORMAL) POC GLUCOSE (02/01/2023 2:10 AM CDT) GLUCOSE POC 177(H) 74 - 99 mg/dL 02/01/2023 2:10 AM CDT [facility] SPECIMEN SOURCE, GLUCOSE POC Whole Blood 02/01/2023 2:10 AM CDT [facility] Blood, whole 02/01/2023 2:10 AM CDT 02/01/2023 2:18 AM CDT Zbigniew Marino MD POINT OF CARE TEST ING Performing Organization Address [facility]/ZIP Co de Phone Number [facility] CLIA# [id number] [address] [place] [address] * (BROTH-ENRICHED) GROUP B STREP DETECTION (02/01/2023 12:41 AM CDT) [facility] STREPTOCOCCUS GROUP B AMPLIFIED PROBE RESULT Not Detected Not Detected 02/01/2023 11:20 PM CDT [facility] Genital (Vaginal/rectal) Collection / Unknown 02/01/2023 12:41 AM CDT 02/01/2023 12:46 AM CDT Narrative [facility] - 02/01/2023 11:20 PM CDT This test was developed and its performance characteristics determined by [facility]. It has not been cleared by U.S. Food and Drug Administration.The FDA has determined that such clearance or approval is not necessary. This test is used for clinical purposes. It should not be regarded as investigational or for research.This laboratory is certified under the Clinical Laboratory Improvement Amendments of 1988 (CLIA-88) as qualified to perform high complexity clinical laboratory testing. Zbigniew Marino MD MICROBIOLOGY - GEN ERAL ORDERABLES Performing Organization Address City/[facility]/ZIP Co de Phone Number [facility] CLIA# [id number] [address] [place] [address] * (ABNORMAL) POC GLUCOSE (02/01/2023 12:17 AM CDT) GLUCOSE POC 200(H) 74 - 99 mg/dL 02/01/2023 12:17 AM CDT [facility] LABORATORY [facility] SPECIMEN SOURCE, GLUCOSE POC Whole Blood 02/01/2023 12:17 AM CDT [facility]ATORY [facility] Blood, whole 02/01/2023 12:1 7 AM CDT 02/01/2023 12:29 AM CDT Zbigniew Marino MD POINT OF CARE TEST ING Performing Organization Address City/[facility]/ZIP Co de Phone Number [facility] [employer] [facility]# [id number] [address] [place] [address] * (ABNORMAL) POC GLUCOSE (01/31/2023 10:08 PM CDT) GLUCOSE POC 179(H) 74 - 99 mg/dL 01/31/2023 10:08 PM CDT [facility] LABORATORY [facility] SPECIMEN SOURCE, GLUCOSE POC Whole Blood 01/31/2023 10:08 PM CDT [facility] LABORATORY [facility] Blood, whole 01/31/2023 10:0 8 PM CDT 01/31/2023 10:17 PM CDT Zbigniew Marino MD POINT OF CARE TEST ING Performing Organization Address City/[facility]/ZIP Co de Phone Number [facility] [employer] [facility]# [id number] [address] [place] [address] * (ABNORMAL) BASIC METABOLIC PANEL (01/31/2023 9:23 PM CDT) SODIUM 138 136 - 145 mmol/L 01/31/2023 10:17 PM CDT [facility] LAB[facility]ORY [facility] POTASSIUM 3.4(L) 3.5 - 5.0 mmol/L 01/31/2023 10:17 PM CDT [facility] LABORATORY SERVICES [facility] CHLORIDE 109(H) 98 - 107 mmol/L 01/31/2023 10:17 PM CDT [facility] LABORATORY [facility] - . [facility] CO2 19(L) 22 - 29 mmol/L 01/31/2023 10:17 PM CDT [facility] LABORATORY [facility] - . [facility] CALCIUM 8.5(L) 8.6 - 10.2 mg/dL 01/31/2023 10:17 PM CDT [facility] LABORATORY [facility] - . [facility] BUN 3(L) 6 - 20 mg/dL 01/31/2023 10:17 PM CDT [facility] LABORATORY [facility] - . [facility] CREATININE 0.52 0.51 - 0.95 mg/dL 01/31/2023 10:17 PM T [facility] LABORATORY [facility] - . [facility] GLUCOSE 159(H) 74 - 99 mg/dL 01/31/2023 10:17 PM T [facility] LABORATORY [facility] - . [facility] GFR >60 >=60 mL/min/1.7 3 sq meter 01/31/2023 10:17 PM T [facility] LABORATORY [facility] Comment:eGFR calculated with 2020 CKD-EPI equation. Vegetarian diet, extremely high or low muscle mass, and may affect results. Cystatin C with Glomerular Filtration Rate is a suitable alternative for these patients. ANION GAP 10 8 - 16 mmol/L 01/31/2023 10:17 PM T [facility] Blood Venipuncture / Unknown 01/31/2023 9:23 PM CDT 01/31/2023 9:45 PM CDT Manuel Goldstein MD CHEMISTRY ORDERABLES [facility]# [id number] 5 [facility] [place] [place] [address] * MAGNESIUM LEVEL (01/31/2023 9:23 PM CDT) MAGNESIUM 2.1 1.6 - 2.6 mg/dL 01/31/2023 10:17 PM CDT [facility] Blood Venipuncture / Unknown 01/31/2023 9:23 PM CDT 01/31/2023 9:45 PM CDT Manuel Goldstein MD CHEMISTRY ORDERABLES Performing Organization Address [facility]/ZIP Co de Phone Number [id number] [id number] [address] [address] * (ABNORMAL) PHOSPHORUS (01/31/2023 9:23 PM CDT) [facility] PHOSPHORUS 2.1(L) 2.5 - 4.5 mg/dL 01/31/2023 10:17 PM CDT [facility] LABORATORY [facility] Blood Venipuncture / Unknown 01/31/2023 9:23 PM CDT 01/31/2023 9:45 PM CDT Manuel Goldstein MD CHEMISTRY ORDERABLES Performing Organization Address [facility] Phone Number [facility]# [id number] 5 [facility] [place] [address] * (ABNORMAL) POC GLUCOSE (01/31/2023 8:14 PM CDT) [facility] GLUCOSE POC 146(H) 74 - 99 mg/dL 01/31/2023 8:14 PM CDT [facility] LABORATORY [facility] SPECIMEN SOURCE, GLUCOSE POC Whole Blood 01/31/2023 8:14 PM CDT [facility] LABORATORY [facility] Blood, whole 01/31/2023 8:14 PM CDT 01/31/2023 8:28 PM CDT Zbigniew Marino MD POINT OF CARE TEST ING Performing Organization Address [facility]/ZIP Co de Phone Number [facility] [employer] [facility]# [id number] [address] [facility] [address] [address] * (ABNORMAL) POC GLUCOSE (01/31/2023 6:04 PM CDT) GLUCOSE POC 107(H) 74 - 99 mg/dL 01/31/2023 6:04 PM CDT [facility] LABORATORY [facility] SPECIMEN SOURCE, GLUCOSE POC Whole Blood 01/31/2023 6:04 PM CDT [facility] LABORATORY [facility] Blood, whole 01/31/2023 6:04 PM CDT 01/31/2023 6:20 PM CDT Zbigniew Marino MD POINT OF CARE TEST ING Performing Organization Address [facility]/ZIP Co de Phone Number [facility] CLIA# [id number] [address] [place] [address] * (ABNORMAL) POC GLUCOSE (01/31/2023 1:46 PM CDT) GLUCOSE POC 107(H) 74 - 99 mg/dL 01/31/2023 1:46 PM CDT [facility] LABORATORY [facility] SPECIMEN SOURCE, GLUCOSE POC Whole Blood 01/31/2023 1:46 PM CDT [facility] LABORATORY [facility] Blood, whole 01/31/2023 1:46 PM CDT 01/31/2023 1:54 PM CDT Chris Aguirre MD POINT OF CARE TESTIN G Performing Organization Address [facility] Co de Phone Number [facility] CLIA# [id number] [address] [place] [address] * (ABNORMAL) POC GLUCOSE (01/31/2023 11:05 AM CDT) GLUCOSE POC 105(H) 74 - 99 mg/dL 01/31/2023 11:05 AM CDT [facility] LABORATORY [facility] SPECIMEN SOURCE, GLUCOSE POC Whole Blood 01/31/2023 11:05 AM CDT [facility] LABORATORY SERVICES [facility] Blood, whole 01/31/2023 11:0 5 AM CDT 01/31/2023 11:18 AM CDT Chris Aguirre MD POINT OF CARE TESTIN Jayme [facility] CLIA# [id number] [address] [place] [address] * (ABNORMAL) POC GLUCOSE (01/31/2023 9:54 AM CDT) GLUCOSE POC 103(H) 74 - 99 mg/dL 01/31/2023 9:54 AM CDT [facility] LABORATORY SERVICES [facility] SPECIMEN SOURCE, GLUCOSE POC Whole Blood 01/31/2023 9:54 AM CDT [facility] LABORATORY SERVICES [facility] Blood, whole 01/31/2023 9:54 AM CDT 01/31/2023 10:01 AM CDT Chris Aguirre MD POINT OF CARE TESTIN Jayme Performing Organization Address [facility]/ZIP Co de Phone Number [facility] LABORATORY [facility] CLIA# [id number] [address] [place] [address] * (ABNORMAL) POC GLUCOSE (01/31/2023 9:15 AM CDT) GLUCOSE POC 120(H) 74 - 99 mg/dL 01/31/2023 9:15 AM CDT [facility] LABORATORY [facility] SPECIMEN SOURCE, GLUCOSE POC Whole Blood 01/31/2023 9:15 AM CDT [facility] LABORATORY [facility] Blood, whole 01/31/2023 9:15 AM CDT 01/31/2023 9:22 AM CDT Chris Aguirre MD POINT OF CARE TESTIN Jayme [facility] LABORATORY [facility] CLIA# [id number] [address] [place] [address] * (ABNORMAL) POC GLUCOSE (01/31/2023 8:06 AM CDT) GLUCOSE POC 118(H) 74 - 99 mg/dL 01/31/2023 8:06 AM CDT [facility] LABORATORY [facility] SPECIMEN SOURCE, GLUCOSE POC Whole Blood 01/31/2023 8:06 AM CDT [facility] LABORATORY [facility] Blood, whole 01/31/2023 8:06 AM CDT 01/31/2023 8:19 AM CDT Chris Aguirre MD POINT OF CARE TESTIN G [facility] LABORATORY [facility] CLIA# [id number] [address] [place] [address] * (ABNORMAL) POC GLUCOSE (01/31/2023 7:23 AM CDT) GLUCOSE POC 109(H) 74 - 99 mg/dL 01/31/2023 7:23 AM CDT [facility] LABORATORY [facility] SPECIMEN SOURCE, GLUCOSE POC Whole Blood 01/31/2023 7:23 AM CDT [facility] LABORATORY [facility] Blood, whole 01/31/2023 7:23 AM CDT 01/31/2023 7:34 AM CDT Chris Aguirre MD POINT OF CARE TESTIN G [facility] LABORATORY [facility] CLIA# [id number] [address] [place] [address] * VERIFICATION BLOOD GROUP (01/31/2023 7:07 AM CDT) ABO GROUP O 01/31/2023 8:16 AM CDT [facility] LABORATORY SERVICES -- [facility] RH (D) TYPE Positive 01/31/2023 8:16 AM CDT [facility] LABORATORY SERVICES -- [facility] Blood Venipuncture / Unknown 01/31/2023 7:07 AM CDT 01/31/2023 7:08 AM CDT Shonda Lo MD BLOOD BANK ORD ERABLES Performing Organization Address City/[facility]/ZIP Co de Phone Number [facility] [employer] SERVICES -- [facility] CLIA# [id number] [address] [place] [address] * (ABNORMAL) POC GLUCOSE (01/31/2023 6:19 AM CDT) GLUCOSE POC 129(H) 74 - 99 mg/dL 01/31/2023 6:19 AM CDT [place] [facility]ORY [facility] SPECIMEN SOURCE, GLUCOSE POC Whole Blood 01/31/2023 6:19 AM CDT [place] [facility] Blood, whole 01/31/2023 6:19 AM CDT 01/31/2023 6:38 AM CDT Chris Aguirre MD POINT OF CARE TESTIN G Performing Organization Address [facility]/ZIP Co de Phone Number [facility] [employer] [facility] CLIA# [id number] [address] [place] [address] * (ABNORMAL) BASIC METABOLIC PANEL (01/31/2023 5:18 AM CDT) SODIUM 136 136 - 145 mmol/L 01/31/2023 6:31 AM CDT [place] POTASSIUM 2.8(L) 3.5 - 5.0 mmol/L 01/31/2023 6:31 AM CDT [place] [facility] CHLORIDE 109(H) 98 - 107 mmol/L 01/31/2023 6:31 AM CDT [place] [facility] SERVICES - . [facility] CO2 17(L) 22 - 29 mmol/L 01/31/2023 6:31 AM CDT [place] [facility] CALCIUM 7.8(L) 8.6 - 10.2 mg/dL 01/31/2023 6:31 AM CDT [place] [facility] LABORAT[facility] SERVICES - . [facility] BUN 4(L) 6 - 20 mg/dL 01/31/2023 6:31 AM CDT [facility] LABORATORY [facility] CREATININE 0.51 0.51 - 0.95 mg/dL 01/31/2023 6:31 AM [facility] LABORATORY [facility] GLUCOSE 129(H) 74 - 99 mg/dL 01/31/2023 6:31 AM T [facility] LABORATORY [facility] GFR >60 >=60 mL/min/1.7 3 sq meter 01/31/2023 6:31 AM [facility] LABORATORY [facility] Comment:eGFR calculated with 2020 CKD-EPI equation. Vegetarian diet, extremely high or low muscle mass, and may affect results. Cystatin C with Glomerular Filtration Rate is a suitable alternative for these patients. ANION GAP 10 8 - 16 mmol/L 01/31/2023 6:31 AM T [facility] LABORATORY [facility] Blood Venipuncture / Unknown 01/31/2023 5:18 AM CDT 01/31/2023 5:44 AM CDT Manuel Goldstein MD CHEMISTRY ORDERABLES [facility] LABORATORY [facility] CLIA# [id number] [address] [place] [address] * MAGNESIUM LEVEL (01/31/2023 5:18 AM CDT) MAGNESIUM 1.7 1.6 - 2.6 mg/dL 01/31/2023 6:31 AM CDT [facility] LABORATORY [facility] Blood Venipuncture / Unknown 01/31/2023 5:18 AM CDT 01/31/2023 5:44 AM CDT Manuel Goldstein MD CHEMISTRY ORDERABLES [facility] CLIA# [id number] [address] [place] [address] * (ABNORMAL) PHOSPHORUS (01/31/2023 5:18 AM CDT) PHOSPHORUS 1.4(L) 2.5 - 4.5 mg/dL 01/31/2023 6:31 AM T [facility] LABORATORY SERVICES [facility] Blood Venipuncture / Unknown 01/31/2023 5:18 AM CDT 01/31/2023 5:44 AM CDT Manuel Goldstein MD CHEMISTRY ORDERABLES [facility] [employer] SERVICES [facility] CLIA# [id number] 5 [facility] [address] [address] * (ABNORMAL) CBC WITH DIFFERENTIAL (01/31/2023 5:18 AM CDT) [facility] WBC 9.6 4.0 - 9.8 K/uL 01/31/2023 6:00 AM [facility] LABORATORY SERVICES [facility] RBC 3.22(L) 3.90 - 4.90 M/uL 01/31/2023 6:00 AM T [facility] LABORATORY SERVICES [facility] HEMOGLOBIN 8.4(L) 11.8 - 14.8 g/dL 01/31/2023 6:00 AM T [facility] LABORATORY SERVICES [facility] HEMATOCRIT 26.5(L) 35.5 - 44.0 % 01/31/2023 6:00 AM T [facility] [employer] SERVICES [facility] MCV 82.3 82.0 - 99.0 fL 01/31/2023 6:00 AM T [facility] LABORATORY SERVICES [facility] MCH 26.1(L) 27.2 - 32.6 pg 01/31/2023 6:00 AM T [facility] [employer] SERVICES [facility] MCHC 31.7 31.5 - 35.5 g/dL 01/31/2023 6:00 AM T [facility] SERVICES [facility] RDW 16.1(H) 11.5 - 14.5 % 01/31/2023 6:00 AM T [facility] SERVICES [facility] RDW-STDEV 48.1 37.1 - 48.7 fL 01/31/2023 6:00 AM [facility] [employer] SERVICES [facility] PLATELETS 329 140 - 350 K/uL 01/31/2023 6:00 AM T [place] [facility] MPV 9.2(L) 9.3 - 12.4 fL 01/31/2023 6:00 AM [facility] LAB[facility] SERVICES - . [facility] NEUTROPHILS 61 % 01/31/2023 6:00 AM [facility] LAB[facility] SERVICES - . [facility] LYMPHOCYTES 20 % 01/31/2023 6:00 AM [facility] [place] SERVICES - . [facility] MONOCYTES 15 % 01/31/2023 6:00 AM T [place] [facility] SERVICES - . [facility] EOSINOPHILS 0 % 01/31/2023 6:00 AM T [place] [facility] SERVICES - . [facility] BASOPHILS 0 % 01/31/2023 6:00 AM [facility] [place] [facility] SERVICES - . [facility] IMMATURE GRANULOCYTES 4 % 01/31/2023 6:00 AM T [place] [facility] SERVICES - . [facility] Comment:IG (Immature Granulo cyte) count includes Metamyelocytes, Myelocytes, and Promyelocytes NEUTROPHIL ABSOLUTE 5.83 1.90 - 7.00 K/uL 01/31/2023 6:00 AM [facility] [place] [facility] SERVICES - . [facility] LYMPHOCYTE ABSOLUTE 1.91 0.70 - 4.50 K/uL 01/31/2023 6:00 AM [facility] [place] [facility] SERVICES - . [facility] MONOCYTE ABSOLUTE 1.44(H) 0.10 - 1.30 K/uL 01/31/2023 6:00 AM [facility] [place] [facility] SERVICES - . [facility] EOSINOPHIL ABSOLUTE 0.01 0.00 - 0.70 K/uL 01/31/2023 6:00 AM [facility] SERVICES - . [facility] BASOPHILS ABSOLUTE 0.02 0.00 - 0.20 K/uL 01/31/2023 6:00 AM [facility] [employer] [facility] - . [facility] IMMATURE GRANULOCYTES ABSOLUTE 0.37(H) 0.00 - 0.03 K/uL 01/31/2023 6:00 AM [facility] [place] [facility] SERVICES - . [facility] Blood Venipuncture / Unknown 01/31/2023 5:18 AM CDT 01/31/2023 5:43 AM CDT Manuel Goldstein MD HEMATOLOGY ORDERABLE S [facility] LAB[facility]ATORY [facility]# [id number] [address] [place] [address] * (ABNORMAL) POC GLUCOSE (01/31/2023 5:12 AM CDT) GLUCOSE POC 145(H) 74 - 99 mg/dL 01/31/2023 5:12 AM CDT [facility] LABORATORY [facility] SPECIMEN SOURCE, GLUCOSE POC Whole Blood 01/31/2023 5:12 AM CDT [facility] LAB[facility]ATORY [facility] Blood, whole 01/31/2023 5:12 AM CDT 01/31/2023 5:34 AM CDT Vidhi Espinosa MD POINT OF CARE TESTIN G Performing Organization Address [facility]/ZIP Co de Phone Number [facility] LABORATORY [facility] CLKY# [id number] [address] [place] [address] * (ABNORMAL) POC GLUCOSE (01/31/2023 4:19 AM CDT) GLUCOSE POC 155(H) 74 - 99 mg/dL 01/31/2023 4:19 AM CDT [facility] LABORATORY SERVICES [facility] SPECIMEN SOURCE, GLUCOSE POC Whole Blood 01/31/2023 4:19 AM CDT [facility] LAB[facility]ATORY [facility] Blood, whole 01/31/2023 4:19 AM CDT 01/31/2023 4:30 AM CDT Vidhi Espinosa MD POINT OF CARE TESTIN G [facility] [employer] [facility] CLIA# [id number] [address] [place] [address] * (ABNORMAL) POC GLUCOSE (01/31/2023 3:17 AM CDT) GLUCOSE POC 110(H) 74 - 99 mg/dL 01/31/2023 3:17 AM CDT [facility] LABORATORY [facility] SPECIMEN SOURCE, GLUCOSE POC Whole Blood 01/31/2023 3:17 AM CDT [facility] Blood, whole 01/31/2023 3:17 AM CDT 01/31/2023 3:27 AM CDT Vidhi Espinosa MD POINT OF CARE TESTIN G [facility] CLIA# [id number] [address] [place] [address] * (ABNORMAL) POC GLUCOSE (01/31/2023 2:12 AM CDT) GLUCOSE POC 114(H) 74 - 99 mg/dL 01/31/2023 2:12 AM CDT [facility] SPECIMEN SOURCE, GLUCOSE POC Whole Blood 01/31/2023 2:12 AM CDT [facility] Blood, whole 01/31/2023 2:12 AM CDT 01/31/2023 3:27 AM CDT Vidhi Espinosa MD POINT OF CARE TESTIN G [facility] [place] [facility] CLIA# [id number] [address] [place] [address] * (ABNORMAL) POC GLUCOSE (01/31/2023 1:17 AM CDT) GLUCOSE POC 124(H) 74 - 99 mg/dL 01/31/2023 1:17 AM CDT [facility] SPECIMEN SOURCE, GLUCOSE POC Whole Blood 01/31/2023 1:17 AM CDT [facility] Blood, whole 01/31/2023 1:17 AM CDT 01/31/2023 1:26 AM CDT Vidhi Espinosa MD POINT OF CARE TESTMARY Jayme [facility] CLIA# [id number] [address] [place] [address] * (ABNORMAL) POC GLUCOSE (01/31/2023 12:01 AM CDT) GLUCOSE POC 126(H) 74 - 99 mg/dL 01/31/2023 12:01 AM CDT [facility] SPECIMEN SOURCE, GLUCOSE POC Whole Blood 01/31/2023 12:01 AM CDT [facility] Blood, whole 01/31/2023 12:0 1 AM CDT 01/31/2023 12:15 AM CDT Vidhi Espinosa MD POINT OF CARE TESTMARY Jayme Performing Organization Address [facility]/ZIP Co de Phone Number [facility] CLIA# [id number] [address] [place] [address] * (ABNORMAL) POC GLUCOSE (01/30/2023 11:14 PM CDT) GLUCOSE POC 137(H) 74 - 99 mg/dL 01/30/2023 11:14 PM CDT [facility] SPECIMEN SOURCE, GLUCOSE POC Whole Blood 01/30/2023 11:14 PM CDT [facility] Blood, whole 01/30/2023 11:1 4 PM CDT 01/30/2023 11:25 PM CDT Vidhi Espinosa MD POINT OF CARE TESTIN Jayme [facility] [place] [facility] CLIA# [id number] [address] [place] [address] * (ABNORMAL) POC GLUCOSE (01/30/2023 10:16 PM CDT) GLUCOSE POC 157(H) 74 - 99 mg/dL 01/30/2023 10:16 PM CDT [facility] LABORATORY [facility] SPECIMEN SOURCE, GLUCOSE POC Whole Blood 01/30/2023 10:16 PM CDT [facility] LABORATORY [facility] Blood, whole 01/30/2023 10:1 6 PM CDT 01/30/2023 10:25 PM CDT Vidhi Espinosa MD POINT OF CARE TESTIN G [facility] CLIA# [id number] [address] [place] [address] * (ABNORMAL) POC GLUCOSE (01/30/2023 9:19 PM CDT) GLUCOSE POC 134(H) 74 - 99 mg/dL 01/30/2023 9:19 PM CDT [facility] LABORATORY [facility] SPECIMEN SOURCE, GLUCOSE POC Whole Blood 01/30/2023 9:19 PM CDT [facility] LABORATORY [facility] Blood, whole 01/30/2023 9:19 PM CDT 01/30/2023 10:25 PM CDT Vidhi Espinosa MD POINT OF CARE TESTIN G Performing Organization Address City/[facility]/ZIP Co de Phone Number [facility] CLIA# [id number] [address] [place] [address] * (ABNORMAL) POC GLUCOSE (01/30/2023 8:28 PM CDT) GLUCOSE POC 101(H) 74 - 99 mg/dL 01/30/2023 8:28 PM CDT [facility] LABORATORY [facility] SPECIMEN SOURCE, GLUCOSE POC Whole Blood 01/30/2023 8:28 PM CDT [facility] LABORATORY [facility] Blood, whole 01/30/2023 8:28 PM CDT 01/30/2023 10:25 PM CDT Vidhi Espinosa MD POINT OF CARE TESTMARY Jayme [facility] [place] [facility] CLIA# [id number] [address] [place] [address] * (ABNORMAL) POC GLUCOSE (01/30/2023 6:57 PM CDT) GLUCOSE POC 108(H) 74 - 99 mg/dL 01/30/2023 6:57 PM CDT [facility] LABORATORY SERVICES - [facility] SPECIMEN SOURCE, GLUCOSE POC Whole Blood 01/30/2023 6:57 PM CDT [facility] LABORATORY SERVICES [facility] Blood, whole 01/30/2023 6:57 PM CDT 01/30/2023 7:05 PM CDT Vidhi Espinosa MD POINT OF CARE TESTMARY Jayme Performing Organization Address [facility]/ZIP Co de Phone Number [facility] [place] [facility] CLIA# [id number] [address] [place] [address] * POC GLUCOSE (01/30/2023 5:59 PM CDT) GLUCOSE POC 98 74 - 99 mg/dL 01/30/2023 5:59 PM CDT [facility] LABORATORY [facility] SPECIMEN SOURCE, GLUCOSE POC Whole Blood 01/30/2023 5:59 PM CDT [facility] Blood, whole 01/30/2023 5:59 PM CDT 01/30/2023 6:11 PM CDT Vidhi Espinosa MD POINT OF CARE TESTMARY Delacruz [facility] [place] [facility] CLKY# [id number] [address] [place] [address] * (ABNORMAL) BASIC METABOLIC PANEL (01/30/2023 5:09 PM CDT) SODIUM 135(L) 136 - 145 mmol/L 01/30/2023 5:53 PM CDT [facility] LABORATORY [facility] POTASSIUM 3.9 3.5 - 5.0 mmol/L 01/30/2023 5:53 PM CDT [facility] CHLORIDE 110(H) 98 - 107 mmol/L 01/30/2023 5:53 PM CDT [facility] CO2 15(L) 22 - 29 mmol/L 01/30/2023 5:53 PM CDT [facility] CALCIUM 8.0(L) 8.6 - 10.2 mg/dL 01/30/2023 5:53 PM T [facility] BUN 5(L) 6 - 20 mg/dL 01/30/2023 5:53 PM T [facility] CREATININE 0.46(L) 0.51 - 0.95 mg/dL 01/30/2023 5:53 PM T [facility] GLUCOSE 111(H) 74 - 99 mg/dL 01/30/2023 5:53 PM T [facility] GFR >60 >=60 mL/min/1.7 3 sq meter 01/30/2023 5:53 PM T [facility] Comment:eGFR calculated with 2020 CKD-EPI equation. Vegetarian diet, extremely high or low muscle mass, and may affect results. Cystatin C with Glomerular Filtration Rate is a suitable alternative for these patients. ANION GAP 10 8 - 16 mmol/L 01/30/2023 5:53 PM T [facility] Blood Venipuncture / Unknown 01/30/2023 5:09 PM CDT 01/30/2023 5:14 PM CDT Manuel Goldstein MD CHEMISTRY ORDERABLES [facility] CLIA# [id number] [address] [facility] [address] [address] * MAGNESIUM LEVEL (01/30/2023 5:09 PM CDT) MAGNESIUM 2.0 1.6 - 2.6 mg/dL 01/30/2023 5:56 PM CDT [facility] Blood Venipuncture / Unknown 01/30/2023 5:09 PM CDT 01/30/2023 5:14 PM CDT Manuel Goldstein MD CHEMISTRY ORDERABLES Performing Organization Address [facility] de Phone Number [facility]# [id number] [address] [facility] [address] [address] * PHOSPHORUS (01/30/2023 5:09 PM CDT) [facility] PHOSPHORUS 3.3 2.5 - 4.5 mg/dL 01/30/2023 5:56 PM CDT [facility] Comment:Significant change f rom prior result, correlate clinically and redraw if necessary. Blood Venipuncture / Unknown 01/30/2023 5:09 PM CDT 01/30/2023 5:14 PM CDT Manuel Goldstein MD CHEMISTRY ORDERABLES Performing Organization Address [facility] Phone Number [facility]# [id number] [address] [place] [address] * (ABNORMAL) POC GLUCOSE (01/30/2023 5:07 PM CDT) [facility] GLUCOSE POC 111(H) 74 - 99 mg/dL 01/30/2023 5:07 PM CDT [facility] LABORATORY [facility] SPECIMEN SOURCE, GLUCOSE POC Whole Blood 01/30/2023 5:07 PM CDT [facility] LABORATORY [facility] Blood, whole 01/30/2023 5:07 PM CDT 01/30/2023 5:24 PM CDT Vidhi Espinosa MD POINT OF CARE TESTIN G Performing Organization Address [facility]/ZIP Co de Phone Number [facility] [place] [facility]# [id number] [address] [place] [address] * (ABNORMAL) POC GLUCOSE (01/30/2023 4:01 PM CDT) GLUCOSE POC 123(H) 74 - 99 mg/dL 01/30/2023 4:01 PM CDT [facility] LABORATORY [facility] SPECIMEN SOURCE, GLUCOSE POC Whole Blood 01/30/2023 4:01 PM CDT [facility] LABORATORY [facility] Blood, whole 01/30/2023 4:01 PM CDT 01/30/2023 4:10 PM CDT Vidhi Espinosa MD POINT OF CARE TESTMARY Delacruz Performing Organization Address City/[facility]/ZIP Co de Phone Number [facility] [place] [facility] CLKY# [id number] [address] [place] [address] * (ABNORMAL) POC GLUCOSE (01/30/2023 3:01 PM CDT) GLUCOSE POC 124(H) 74 - 99 mg/dL 01/30/2023 3:01 PM CDT [facility] LABORATORY [facility] SPECIMEN SOURCE, GLUCOSE POC Whole Blood 01/30/2023 3:01 PM CDT [facility] LABORATORY [facility] Blood, whole 01/30/2023 3:01 PM CDT 01/30/2023 3:08 PM CDT Vidhi Espinosa MD POINT OF CARE TESTMARY Delacruz [facility] [place] [facility] CLIA# [id number] [address] [place] [address] * (ABNORMAL) POC GLUCOSE (01/30/2023 2:10 PM CDT) GLUCOSE POC 124(H) 74 - 99 mg/dL 01/30/2023 2:10 PM CDT [facility] LABORATORY SERVICES - [facility] SPECIMEN SOURCE, GLUCOSE POC Whole Blood 01/30/2023 2:10 PM CDT [facility] LABORATORY [facility] Blood, whole 01/30/2023 2:10 PM CDT 01/30/2023 2:18 PM CDT Vidhi Espinosa MD POINT OF CARE TESTIN G [facility] LABORATORY [facility] CLIA# [id number] [address] [place] [address] * (ABNORMAL) POC GLUCOSE (01/30/2023 1:07 PM CDT) GLUCOSE POC 101(H) 74 - 99 mg/dL 01/30/2023 1:07 PM CDT [facility] LABORATORY SERVICES [facility] SPECIMEN SOURCE, GLUCOSE POC Whole Blood 01/30/2023 1:07 PM CDT [facility] LABORATORY SERVICES [facility] Blood, whole 01/30/2023 1:07 PM CDT 01/30/2023 1:15 PM CDT Vidhi Espinosa MD POINT OF CARE TESTIN G Performing Organization Address [facility]/ZIP Co de Phone Number [facility] LABORATORY [facility] CLIA# [id number] [address] [place] [address] * POC GLUCOSE (01/30/2023 12:00 PM CDT) GLUCOSE POC 92 74 - 99 mg/dL 01/30/2023 12:00 PM CDT [facility] LABORATORY SERVICES [facility] SPECIMEN SOURCE, GLUCOSE POC Whole Blood 01/30/2023 12:00 PM CDT [facility] LAB[facility]ATORY SERVICES [facility] Blood, whole 01/30/2023 12:0 0 PM CDT 01/30/2023 12:46 PM CDT Vidhi Espinosa MD POINT OF CARE TESTIN G [facility] LABORATORY [facility]# [id number] [address] [place] [address] * LACTIC ACID (01/30/2023 11:04 AM CDT) LACTIC ACID 1.2 <=2.0 mmol/L 01/30/2023 11:39 AM CDT [facility] [place] [facility] Blood Venipuncture / Unknown 01/30/2023 11:04 AM CDT 01/30/2023 11:16 AM CDT Zbigniew Marino MD CHEMISTRY ORDERABL ES [facility] [place] [facility]# [id number] [address] [place] [address] * (ABNORMAL) COMPREHENSIVE METABOLIC PANEL (01/30/2023 11:04 AM CDT) Pathologist [facility] SODIUM 136 136 - 145 mmol/L 01/30/2023 11:55 AM T [facility] LABORATORY SERVICES - [facility] POTASSIUM 2.8(L) 3.5 - 5.0 mmol/L 01/30/2023 11:55 AM T [place] [facility] LABORATORY SERVICES - . [facility] CHLORIDE 110(H) 98 - 107 mmol/L 01/30/2023 11:55 AM T [place] [facility] LABORATORY SERVICES - . [facility] CO2 16(L) 22 - 29 mmol/L 01/30/2023 11:55 AM T [place] [facility]ORATORY SERVICES - . [facility] CALCIUM 9.0 8.6 - 10.2 mg/dL 01/30/2023 11:55 AM T [place] [facility] SERVICES [facility] BUN 6 6 - 20 mg/dL 01/30/2023 11:55 AM T [place] [facility]ORAT[facility] SERVICES - . [facility] CREATININE 0.55 0.51 - 0.95 mg/dL 01/30/2023 11:55 AM T [place] [facility] GLUCOSE 89 74 - 99 mg/dL 01/30/2023 11:55 AM T [place] [facility] LABORATORY SERVICES - . [facility] TOTAL PROTEIN 5.1(L) 6.7 - 8.6 g/dL 01/30/2023 11:55 AM [facility] ALBUMIN 3.1(L) 3.5 - 5.2 g/dL 01/30/2023 11:55 AM [facility] BILIRUBIN TOTAL 0.7 0.3 - 1.2 mg/dL 01/30/2023 11:55 AM [facility] ALKALINE PHOSPHATASE 103 35 - 104 U/L 01/30/2023 11:55 AM [facility] AST 7 <33 U/L 01/30/2023 11:55 AM [facility] ALT 8 <34 U/L 01/30/2023 11:55 AM [facility] GFR >60 >=60 mL/min/1.7 3 sq meter 01/30/2023 11:55 AM [facility] Comment:eGFR calculated with 2020 CKD-EPI equation. Vegetarian diet, extremely high or low muscle mass, and may affect results. Cystatin C with Glomerular Filtration Rate is a suitable alternative for these patients. ANION GAP 10 8 - 16 mmol/L 01/30/2023 11:55 AM [facility] Blood Venipuncture / Unknown 01/30/2023 11:04 AM CDT 01/30/2023 11:17 AM CDT [facility] - 01/30/2023 11:55 AM CDT Samples containing indocyanine green cause interferences on Total and/or Direct Bilirubin and must not be measured. Zbigniew Marino MD CHEMISTRY ORDERABL ES [facility] [id number] [facility] [place] [address] * (ABNORMAL) CBC WITH DIFFERENTIAL (01/30/2023 11:04 AM CDT) WBC 11.1(H) 4.0 - 9.8 K/uL 01/30/2023 11:25 AM CDT [facility] LABORATORY SERVICES - . [facility] RBC 3.45(L) 3.90 - 4.90 M/uL 01/30/2023 11:25 AM CDT [facility] LABORATORY SERVICES - . [facility] HEMOGLOBIN 9.0(L) 11.8 - 14.8 g/dL 01/30/2023 11:25 AM CDT [facility] LABORATORY SERVICES - . [facility] HEMATOCRIT 27.5(L) 35.5 - 44.0 % 01/30/2023 11:25 AM CDT [facility]ATORY SERVICES [facility] MCV 79.7(L) 82.0 - 99.0 fL 01/30/2023 11:25 AM CDT [facility] LABORATORY SERVICES - . [facility] MCH 26.1(L) 27.2 - 32.6 pg 01/30/2023 11:25 AM CDT [facility] MCHC 32.7 31.5 - 35.5 g/dL 01/30/2023 11:25 AM CDT [facility] LABORATORY SERVICES - . [facility] RDW 15.9(H) 11.5 - 14.5 % 01/30/2023 11:25 AM CDT [facility] LABORATORY SERVICES - . [facility] RDW-STDEV 45.7 37.1 - 48.7 fL 01/30/2023 11:25 AM CDT [facility] LABORATORY SERVICES - . [facility] PLATELETS 367(H) 140 - 350 K/uL 01/30/2023 11:25 AM CDT [facility] LABORATORY SERVICES - . [facility] MPV 8.6(L) 9.3 - 12.4 fL 01/30/2023 11:25 AM CDT [facility] LABORATORY SERVICES [facility] NEUTROPHILS 71 % 01/30/2023 11:25 AM CDT [facility]AT[facility] SERVICES [facility] LYMPHOCYTES 14 % 01/30/2023 11:25 AM CDT [facility] SERVICES [facility] MONOCYTES 13 % 01/30/2023 11:25 AM CDT [facility]ATORY SERVICES [facility] EOSINOPHILS 0 % 01/30/2023 11:25 AM CDT [facility]ATORY SERVICES [facility] BASOPHILS 0 % 01/30/2023 11:25 AM CDT [facility]ATORY SERVICES [facility] IMMATURE GRANULOCYTES 2 % 01/30/2023 11:25 AM CDT [facility] [place] [facility] Comment:IG (Immature Granulo cyte) count includes Metamyelocytes, Myelocytes, and Promyelocytes NEUTROPHIL ABSOLUTE 7.86(H) 1.90 - 7.00 K/uL 01/30/2023 11:25 AM CDT [facility] LYMPHOCYTE ABSOLUTE 1.56 0.70 - 4.50 K/uL 01/30/2023 11:[address] [facility]. [facility] MONOCYTE ABSOLUTE 1.45(H) 0.10 - 1.30 K/uL 01/30/2023 11:25 AM CDT [facility] [place] [facility] EOSINOPHIL ABSOLUTE 0.00 0.00 - 0.70 K/uL 01/30/2023 11:25 AM CDT [facility] [place] [facility]. [facility] BASOPHILS ABSOLUTE 0.02 0.00 - 0.20 K/uL 01/30/2023 11:25 AM T [facility] [place] [facility] IMMATURE GRANULOCYTES ABSOLUTE 0.25(H) 0.00 - 0.03 K/uL 01/30/2023 11:25 AM T [facility] [place] [facility] Blood Venipuncture / Unknown 01/30/2023 11:04 AM CDT 01/30/2023 11:17 AM CDT Zbigniew Marino MD HEMATOLOGY ORDERAB LES [facility]# [id number] [address] [place] [address] * (ABNORMAL) POC GLUCOSE (01/30/2023 11:00 AM CDT) GLUCOSE POC 102(H) 74 - 99 mg/dL 01/30/2023 11:00 AM CDT [facility] [place] [facility] SPECIMEN SOURCE, GLUCOSE POC Whole Blood 01/30/2023 11:00 AM CDT [facility] [place] [facility] Blood, whole 01/30/2023 11:0 0 AM CDT 01/30/2023 12:47 PM CDT Vidhi Espinosa MD POINT OF CARE TESTIN G [facility] [place] [facility]# [id number] [address] [place] [address] * POC GLUCOSE (01/30/2023 10:04 AM CDT) GLUCOSE POC 84 74 - 99 mg/dL 01/30/2023 10:04 AM CDT [facility] LABORATORY [facility] SPECIMEN SOURCE, GLUCOSE POC Whole Blood 01/30/2023 10:04 AM CDT [facility] LABORATORY SERVICES [facility] Blood, whole 01/30/2023 10:0 4 AM CDT 01/30/2023 10:13 AM CDT Vidhi Espinosa MD POINT OF CARE TESTMARY Jayme Performing Organization Address [facility]/ZIP Co de Phone Number [facility] [place] [facility]# [id number] [address] [place] [address] * POC GLUCOSE (01/30/2023 9:00 AM CDT) GLUCOSE POC 87 74 - 99 mg/dL 01/30/2023 9:00 AM CDT [facility] LABORATORY [facility] SPECIMEN SOURCE, GLUCOSE POC Whole Blood 01/30/2023 9:00 AM CDT [facility] LABORATORY SERVICES [facility] Blood, whole 01/30/2023 9:00 AM CDT 01/30/2023 9:09 AM CDT Yazan Hernandez MD POINT OF CARE TESTIN G [facility] [place] [facility]# [id number] [address] [place] [address] * POC GLUCOSE (01/30/2023 8:09 AM CDT) GLUCOSE POC 94 74 - 99 mg/dL 01/30/2023 8:09 AM CDT [facility] LABORATORY SERVICES - [facility] SPECIMEN SOURCE, GLUCOSE POC Whole Blood 01/30/2023 8:09 AM CDT [facility] LABORATORY [facility] Blood, whole 01/30/2023 8:09 AM CDT 01/30/2023 8:17 AM CDT Yazan Hernandez MD POINT OF CARE TESTIN G [facility] [id number] [address] [place] [address] * (ABNORMAL) POC GLUCOSE (01/30/2023 6:59 AM CDT) GLUCOSE POC 103(H) 74 - 99 mg/dL 01/30/2023 6:59 AM CDT [facility] LABORATORY [facility] SPECIMEN SOURCE, GLUCOSE POC Whole Blood 01/30/2023 6:59 AM CDT [facility] LABORATORY [facility] Blood, whole 01/30/2023 6:59 AM CDT 01/30/2023 8:17 AM CDT Yazan Hernandez MD POINT OF CARE TESTMARY Delacruz [facility] [place] [facility] CLIA# [id number] [address] [place] [address] * (ABNORMAL) POC GLUCOSE (01/30/2023 5:57 AM CDT) GLUCOSE POC 118(H) 74 - 99 mg/dL 01/30/2023 5:57 AM CDT [facility] LABORATORY SERVICES [facility] SPECIMEN SOURCE, GLUCOSE POC Whole Blood 01/30/2023 5:57 AM CDT [facility] LABORATORY [facility] Blood, whole 01/30/2023 5:57 AM CDT 01/30/2023 8:17 AM CDT Yazan Hernandez MD POINT OF CARE TESTIN Jayme Performing Organization Address [facility]/ZIP Co de Phone Number [facility] LAB[facility]ATORY [facility]# [id number] [address] [place] [address] * (ABNORMAL) POC GLUCOSE (01/30/2023 5:02 AM CDT) GLUCOSE POC 131(H) 74 - 99 mg/dL 01/30/2023 5:02 AM CDT [facility] LABORATORY SERVICES [facility] SPECIMEN SOURCE, GLUCOSE POC Whole Blood 01/30/2023 5:02 AM CDT [facility] Blood, whole 01/30/2023 5:02 AM CDT 01/30/2023 8:17 AM CDT Yazan Hernandez MD POINT OF CARE TESTMARY Jayme Performing Organization Address [facility] de Phone Number [facility] [place] [facility] CLIA# [id number] [address] [place] [address] * (ABNORMAL) HEMOGLOBIN A1C (01/30/2023 3:57 AM CDT) HEMOGLOBIN A1C 5.7(H) <5.7 % 01/30/2023 8:43 AM CDT [facility] LAB[facility]ATORY SERVICES [facility] EST. AVG GLUCOSE, A1C 117 mg/dL 01/30/2023 8:43 AM CDT [facility] LAB[facility] SERVICES [facility] Blood Venipuncture / Unknown 01/30/2023 3:57 AM CDT 01/30/2023 4:01 AM CDT Narrative [facility] LABORATORY [facility] - 01/30/2023 8:43 AM CDT HGB A1C INTERPRETATION NORMAL: ? <5.7% PRE-DIABETES: 5.7 - 6.4% DIABETES: ? 6.5% OR GREATER Manuel Goldstein MD CHEMISTRY ORDERABLES Performing Organization Address City/[facility]/ZIP Co de Phone Number [facility] LABORATORY [facility] CLIA# [id number] [address] [place] [address] * (ABNORMAL) KETONES/BETA HYDROXYBUTYRATE (01/30/2023 3:57 AM CDT) BETA HYDROXYBUTYRATE 2.4(H) <0.4 mmol/L 01/30/2023 7:48 AM CDT [facility] LABORATORY [facility] Blood Venipuncture / Unknown 01/30/2023 3:57 AM CDT 01/30/2023 4:01 AM CDT Manuel Goldstein MD CHEMISTRY ORDERABLES Performing Organization Address City/[facility]/ZIP Co de Phone Number [facility]# [id number] [address] [place] [address] * (ABNORMAL) PHOSPHORUS (01/30/2023 3:57 AM CDT) PHOSPHORUS 1.0(L) 2.5 - 4.5 mg/dL 01/30/2023 4:37 AM CDT [facility] Blood Venipuncture / Unknown 01/30/2023 3:57 AM CDT 01/30/2023 4:01 AM CDT Mora Quevedo MD CHEMISTRY ORDE RABKEVIN [facility]# [id number] [address] [place] [address] * (ABNORMAL) MAGNESIUM LEVEL (01/30/2023 3:57 AM CDT) MAGNESIUM 1.5(L) 1.6 - 2.6 mg/dL 01/30/2023 4:37 AM CDT [facility] Blood Venipuncture / Unknown 01/30/2023 3:57 AM CDT 01/30/2023 4:01 AM CDT Mora Quevedo MD CHEMISTRY ORDE RABLES [facility]# [id number] [address] [place] [id number] * LACTIC ACID (01/30/2023 3:57 AM CDT) LACTIC ACID 1.5 <=2.0 mmol/L 01/30/2023 4:19 AM CDT [place] [facility] Blood Venipuncture / Unknown 01/30/2023 3:57 AM CDT 01/30/2023 4:02 AM CDT Zbigniew Marino MD CHEMISTRY ORDERABL ES Performing Organization Address [facility]/ZIP Co de Phone Number [facility] [facility]# [id number] [address] [place] [address] * (ABNORMAL) COMPREHENSIVE METABOLIC PANEL (01/30/2023 3:57 AM CDT) SODIUM 132(L) 136 - 145 mmol/L 01/30/2023 4:35 AM CDT [place] [facility] POTASSIUM 3.1(L) 3.5 - 5.0 mmol/L 01/30/2023 4:35 AM CDT [place] [facility] CHLORIDE 107 98 - 107 mmol/L 01/30/2023 4:35 AM CDT [place] [facility] CO2 11(L) 22 - 29 mmol/L 01/30/2023 4:35 AM CDT [place] [facility] CALCIUM 8.8 8.6 - 10.2 mg/dL 01/30/2023 4:35 AM CDT [place] [facility] BUN 6 6 - 20 mg/dL 01/30/2023 4:35 AM CDT [place] [facility] CREATININE 0.53 0.51 - 0.95 mg/dL 01/30/2023 4:35 AM [facility] GLUCOSE 128(H) 74 - 99 mg/dL 01/30/2023 4:35 AM [facility] TOTAL PROTEIN 5.4(L) 6.7 - 8.6 g/dL 01/30/2023 4:35 AM [facility] ALBUMIN 3.2(L) 3.5 - 5.2 g/dL 01/30/2023 4:35 AM [facility] BILIRUBIN TOTAL 0.7 0.3 - 1.2 mg/dL 01/30/2023 4:35 AM [facility] ALKALINE PHOSPHATASE 108(H) 35 - 104 U/L 01/30/2023 4:35 AM [facility] AST 7 <33 U/L 01/30/2023 4:35 AM [facility] ALT 7 <34 U/L 01/30/2023 4:35 AM [facility] GFR >60 >=60 mL/min/1.7 3 sq meter 01/30/2023 4:35 AM [facility] Comment:eGFR calculated with 2020 CKD-EPI equation. Vegetarian diet, extremely high or low muscle mass, and may affect results. Cystatin C with Glomerular Filtration Rate is a suitable alternative for these patients. ANION GAP 14 8 - 16 mmol/L 01/30/2023 4:35 AM [facility] Blood Venipuncture / Unknown 01/30/2023 3:57 AM CDT 01/30/2023 4:01 AM [facility] - 01/30/2023 4:35 AM [facility] Samples containing indocyanine green cause interferences on Total and/or Direct Bilirubin and must not be measured. Zbigniew Marino MD CHEMISTRY ORDERABL ES [facility] CLIA# [id number] [address] [facility] [address] [address] * (ABNORMAL) CBC WITH DIFFERENTIAL (01/30/2023 3:57 AM CDT) [facility] WBC 14.0(H) 4.0 - 9.8 K/uL 01/30/2023 4:07 AM CDT [place] [facility] RBC 3.59(L) 3.90 - 4.90 M/uL 01/30/2023 4:07 AM CDT [facility] HEMOGLOBIN 9.2(L) 11.8 - 14.8 g/dL 01/30/2023 4:07 AM CDT [place] [facility] HEMATOCRIT 29.6(L) 35.5 - 44.0 % 01/30/2023 4:07 AM CDT [facility] MCV 82.5 82.0 - 99.0 fL 01/30/2023 4:07 AM CDT [facility] MCH 25.6(L) 27.2 - 32.6 pg 01/30/2023 4:07 AM CDT [place] [facility] MCHC 31.1(L) 31.5 - 35.5 g/dL 01/30/2023 4:07 AM CDT [facility] RDW 15.9(H) 11.5 - 14.5 % 01/30/2023 4:07 AM CDT [facility] RDW-STDEV 47.7 37.1 - 48.7 fL 01/30/2023 4:07 AM CDT [place] [facility] PLATELETS 364(H) 140 - 350 K/uL 01/30/2023 4:07 AM CDT [facility] MPV 8.5(L) 9.3 - 12.4 fL 01/30/2023 4:07 AM CDT [facility] - . [facility] NEUTROPHILS 73 % 01/30/2023 4:07 AM CDT [facility] - . [facility] LYMPHOCYTES 15 % 01/30/2023 4:07 AM CDT [facility] . [facility] MONOCYTES 9 % 01/30/2023 4:07 AM CDT [place] [facility] EOSINOPHILS 0 % 01/30/2023 4:07 AM CDT [facility] BASOPHILS 0 % 01/30/2023 4:07 AM [facility] IMMATURE GRANULOCYTES 3 % 01/30/2023 4:07 AM [facility] Comment:IG (Immature Granulo cyte) count includes Metamyelocytes, Myelocytes, and Promyelocytes NEUTROPHIL ABSOLUTE 10.15(H) 1.90 - 7.00 K/uL 01/30/2023 4:07 AM T [facility] LABORATORY [facility] LYMPHOCYTE ABSOLUTE 2.02 0.70 - 4.50 K/uL 01/30/2023 4:07 AM T [facility] LABORATORY [facility] MONOCYTE ABSOLUTE 1.27 0.10 - 1.30 K/uL 01/30/2023 4:07 AM [facility] LABORATORY [facility] - . [facility] EOSINOPHIL ABSOLUTE 0.00 0.00 - 0.70 K/uL 01/30/2023 4:07 AM [facility] [place] [facility]. [facility] BASOPHILS ABSOLUTE 0.05 0.00 - 0.20 K/uL 01/30/2023 4:07 AM [facility] [place] [facility] IMMATURE GRANULOCYTES ABSOLUTE 0.47(H) 0.00 - 0.03 K/uL 01/30/2023 4:07 AM [facility] [place] [facility] Blood Venipuncture / Unknown 01/30/2023 3:57 AM CDT 01/30/2023 4:01 AM CDT Zbigniew Marino MD HEMATOLOGY ORDERAB LES [facility] Organization Address City/State/ZIP Co de Phone Number [facility] [place] [facility] [id number] [address] [facility] [place] [address] * (ABNORMAL) POC GLUCOSE (01/30/2023 3:52 AM CDT) GLUCOSE POC 125(H) 74 - 99 mg/dL 01/30/2023 3:52 AM CDT [facility] LABORATORY [facility] SPECIMEN SOURCE, GLUCOSE POC Whole Blood 01/30/2023 3:52 AM [facility] [place] [facility] Blood, whole 01/30/2023 3:52 AM CDT 01/30/2023 8:17 AM CDT Yazan Hernandez MD POINT OF CARE TESTMARY Delacruz [facility] LABORATORY SERVICES [facility] CLIA# [id number] [address] [place] [address] * (ABNORMAL) POC GLUCOSE (01/30/2023 2:51 AM CDT) GLUCOSE POC 153(H) 74 - 99 mg/dL 01/30/2023 2:51 AM CDT [facility] SPECIMEN SOURCE, GLUCOSE POC Whole Blood 01/30/2023 2:51 AM CDT [place] [facility] Blood, whole 01/30/2023 2:51 AM CDT 01/30/2023 8:17 AM CDT Yazan Hernandez MD POINT OF CARE TESTMARY Jayme [facility] LABORATORY SERVICES [facility] CLIA# [id number] [address] [place] [address] * (ABNORMAL) POC GLUCOSE (01/30/2023 2:08 AM CDT) GLUCOSE POC 167(H) 74 - 99 mg/dL 01/30/2023 2:08 AM CDT [facility] SPECIMEN SOURCE, GLUCOSE POC Whole Blood 01/30/2023 2:08 AM CDT [place] [facility] Blood, whole 01/30/2023 2:08 AM CDT 01/30/2023 8:17 AM CDT Yazan Hernandez MD POINT OF CARE TESTMARY Jayme [facility] LABORATORY SERVICES [facility] CLIA# [id number] [address] [place] [address] * (ABNORMAL) POC GLUCOSE (01/30/2023 12:59 AM CDT) Pathologist [facility] GLUCOSE POC 184(H) 74 - 99 mg/dL 01/30/2023 12:59 AM CDT [facility] LABORATORY [facility] SPECIMEN SOURCE, GLUCOSE POC Whole Blood 01/30/2023 12:59 AM CDT [facility] Blood, whole 01/30/2023 12:5 9 AM CDT 01/30/2023 8:17 AM CDT Yazan Hernandez MD POINT OF CARE TESTIN G [facility]# [id number] [address] [place] [address] * LACTIC ACID (01/30/2023 12:15 AM CDT) [facility] LACTIC ACID 1.8 <=2.0 mmol/L 01/30/2023 12:53 AM CDT [facility] LABORATORY [facility] Blood Venipuncture / Unknown 01/30/2023 12:15 AM CDT 01/30/2023 12:20 AM CDT Zbigniew Marino MD CHEMISTRY ORDERABL ES [facility] [place] [facility]# [id number] [address] [place] [address] * (ABNORMAL) COMPREHENSIVE METABOLIC PANEL (01/30/2023 12:15 AM CDT) [facility] SODIUM 131(L) 136 - 145 mmol/L 01/30/2023 1:00 AM CDT [facility] LABORATORY [facility] POTASSIUM 3.7 3.5 - 5.0 mmol/L 01/30/2023 1:00 AM CDT [facility] LABORATORY SERVICES [facility] CHLORIDE 103 98 - 107 mmol/L 01/30/2023 1:00 AM CDT [facility] LABORATORY [facility] CO2 7(L) 22 - 29 mmol/L 01/30/2023 1:00 AM [facility] [place] [facility]. [facility] CALCIUM 8.7 8.6 - 10.2 mg/dL 01/30/2023 1:00 AM [facility]. [facility] BUN 6 6 - 20 mg/dL 01/30/2023 1:00 AM [facility]. [facility] CREATININE 0.52 0.51 - 0.95 mg/dL 01/30/2023 1:00 AM [facility] [place] [facility] GLUCOSE 194(H) 74 - 99 mg/dL 01/30/2023 1:00 AM [facility]. [facility] TOTAL PROTEIN 5.5(L) 6.7 - 8.6 g/dL 01/30/2023 1:00 AM [facility] [place] [facility] ALBUMIN 3.2(L) 3.5 - 5.2 g/dL 01/30/2023 1:00 AM [facility] [place] [facility] BILIRUBIN TOTAL 0.6 0.3 - 1.2 mg/dL 01/30/2023 1:00 AM [facility] [place] [facility] ALKALINE PHOSPHATASE 113(H) 35 - 104 U/L 01/30/2023 1:00 AM [facility] [place] [facility] AST 9 <33 U/L 01/30/2023 1:00 AM [facility] [place] [facility] ALT 8 <34 U/L 01/30/2023 1:00 AM [facility] [place] [facility]. [facility] GFR >60 >=60 mL/min/1.7 3 sq meter 01/30/2023 1:00 AM [facility] [place] [facility] Comment:eGFR calculated with 2020 CKD-EPI equation. Vegetarian diet, extremely high or low muscle mass, and may affect results. Cystatin C with Glomerular Filtration Rate is a suitable alternative for these patients. ANION GAP 21(H) 8 - 16 mmol/L 01/30/2023 1:00 AM [facility] [place] [facility] Blood Venipuncture / Unknown 01/30/2023 12:15 AM CDT 01/30/2023 12:20 AM CDT Narrative [facility] - 01/30/2023 1:00 AM CDT Samples containing indocyanine green cause interferences on Total and/or Direct Bilirubin and must not be measured. Zbigniew Marino MD CHEMISTRY ORDERABL ES [facility] LABORATORY [facility] CLIA# [id number] 5 [facility] [address] [place] [address] * (ABNORMAL) CBC WITH DIFFERENTIAL (01/30/2023 12:15 AM CDT) WBC 16.6(H) 4.0 - 9.8 K/uL 01/30/2023 12:28 AM T [facility] LABORATORY [facility] RBC 3.63(L) 3.90 - 4.90 M/uL 01/30/2023 12:28 AM [facility] LABORATORY [facility] HEMOGLOBIN 9.3(L) 11.8 - 14.8 g/dL 01/30/2023 12:28 AM T [facility] HEMATOCRIT 30.5(L) 35.5 - 44.0 % 01/30/2023 12:28 AM [facility]ATORY [facility] MCV 84.0 82.0 - 99.0 fL 01/30/2023 12:28 AM [facility] LABORATORY [facility] MCH 25.6(L) 27.2 - 32.6 pg 01/30/2023 12:28 AM T [facility] LABORATORY SERVICES [facility] MCHC 30.5(L) 31.5 - 35.5 g/dL 01/30/2023 12:28 AM T [facility] LABORATORY [facility] RDW 15.9(H) 11.5 - 14.5 % 01/30/2023 12:28 AM [facility] LABORATORY [facility] RDW-STDEV 48.7 37.1 - 48.7 fL 01/30/2023 12:28 AM [facility] LABORATORY SERVICES [facility] PLATELETS 342 140 - 350 K/uL 01/30/2023 12:28 AM CDT [place] [facility] MPV 8.7(L) 9.3 - 12.4 fL 01/30/2023 12:28 AM T [place] [facility] NEUTROPHILS 78 % 01/30/2023 12:28 AM [facility] - . [facility] LYMPHOCYTES 10 % 01/30/2023 12:28 AM T [place] [facility] - . [facility] MONOCYTES 8 % 01/30/2023 12:28 AM CDT [place] [facility] . [facility] EOSINOPHILS 0 % 01/30/2023 12:28 AM CDT [place] [facility] . [facility] BASOPHILS 0 % 01/30/2023 12:28 AM T [place] [facility] . [facility] IMMATURE GRANULOCYTES 4 % 01/30/2023 12:28 AM T [facility] Comment:IG (Immature Granulo cyte) count includes Metamyelocytes, Myelocytes, and Promyelocytes NEUTROPHIL ABSOLUTE 12.88(H) 1.90 - 7.00 K/uL 01/30/2023 12:28 AM T [facility] LABORATORY SERVICES - . [facility] LYMPHOCYTE ABSOLUTE 1.71 0.70 - 4.50 K/uL 01/30/2023 12:28 AM T [facility] - . [facility] MONOCYTE ABSOLUTE 1.32(H) 0.10 - 1.30 K/uL 01/30/2023 12:28 AM T [facility] LABORATORY SERVICES - . [facility] EOSINOPHIL ABSOLUTE 0.00 0.00 - 0.70 K/uL 01/30/2023 12:28 AM [facility] [employer] [facility]. [facility] BASOPHILS ABSOLUTE 0.05 0.00 - 0.20 K/uL 01/30/2023 12:28 AM T [employer] [facility] - . [facility] IMMATURE GRANULOCYTES ABSOLUTE 0.62(H) 0.00 - 0.03 K/uL 01/30/2023 12:28 AM [facility] [employer] [facility] Blood Venipuncture / Unknown 01/30/2023 12:15 AM CDT 01/30/2023 12:20 AM CDT Zbigniew Marino MD HEMATOLOGY ORDERAB LES [facility] Organization Address City/State/ZIP Co de Phone Number [facility] [id number] [address] [place] [address] * (ABNORMAL) POC GLUCOSE (01/30/2023 12:11 AM CDT) [facility] GLUCOSE POC 193(H) 74 - 99 mg/dL 01/30/2023 12:11 AM CDT [facility] SPECIMEN SOURCE, GLUCOSE POC Whole Blood 01/30/2023 12:11 AM CDT [facility] Blood, whole 01/30/2023 12:1 1 AM CDT 01/30/2023 8:17 AM CDT Yazan Hernandez MD POINT OF CARE TESTIN G [facility]# [id number] [address] [place] [address] * EKG 12-LEAD (01/29/2023 11:29 PM CDT) 01/29/2023 11:2 9 PM CDT Narrative INTERFACE SYSTEM - 01/31/2023 6:04 AM CDT ? Stationary ECG Study ? [facility] ? Test Date: ?01/29/2023 11:29 PM Pat Name: ? CHEY MENJIVAR ? Department: ?? 28 ?Room: ? 4217 01 Gender: ? 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 [email or web address] : ?[id number] ? Requested By: FRANK Varner Order Number: [id number] ? Reading MD: ?? Jacek ??Villarreal ? Measurements Intervals ?[place] ? Rate: ? 113 ?P: ?76 [place]: ? 129 ?QRS: ?106 QRSD: ? 75 ? T: ?15 QT: ? 308 ? QTc: ?424 ? Interpretive Statements ? SINUS TACHYCARDIA MARKED RIGHT AXIS DEVIATION [QRS AXIS > 100] No previous ECG available for comparison Electronically Signed On 01-31-2023 6:04:10 CDT by Jacek ??Pihl Procedure Note Provider, Historical - 01/31/2023 Stationary ECG Study [facility] Test Date: 01/29/2023 11:29 PM Pat Name: CHEY MENJIVAR Department: 28 Room: [address] [place] [address] Gender: F Teacher Associate: brigid : [id number] Requested By: FRANK Varner Order Number: [id number] Reading MD: Jacek Villarreal Measurements Intervals [place] Rate: 113 P: 76 [place]: 129 QRS: 106 QRSD: 75 T: 15 QT: 308 QTc: 424 Interpretive Statements SINUS TACHYCARDIA MARKED RIGHT AXIS DEVIATION [QRS AXIS > 100] No previous ECG available for comparison Electronically Signed On 01-31-2023 6:04:10 CDT by Jacek Villarreal Mora Quevedo MD ECG ORDERABLES Performing Organization Address City/State/[facility] Co de Phone Number INTERFACE SYSTEM Refer to clinic/hospital department * (ABNORMAL) POC GLUCOSE (01/29/2023 10:59 PM CDT) GLUCOSE POC 189(H) 74 - 99 mg/dL 01/29/2023 10:59 PM CDT [facility] SPECIMEN SOURCE, GLUCOSE POC Whole Blood 01/29/2023 10:59 PM CDT [facility] Blood, whole 01/29/2023 10:5 9 PM CDT 01/30/2023 8:17 AM CDT Yazan Hernandez MD POINT OF CARE TESTIN G [facility] [place] [facility]# [id number] [address] [place] [address] * BLOOD CULTURE (01/29/2023 10:34 PM CDT) BLOOD CULTURE No growth 02/05/2023 4:29 PM CDT [facility] LABORATORY [facility] Blood (Peripheral) Venipuncture / Unknown 01/29/2023 10:34 PM CDT 01/29/2023 10:41 PM CDT Narrative [facility] LABORATORY [facility] - 02/05/2023 4:29 PM CDT Specimen processed with suboptimal blood volume collected. Zbigniew Marino MD MICROBIOLOGY - GEN ERAL ORDERABLES Performing Organization Address [facility]/ZIP Co de Phone Number [facility] [place] [facility]# [id number] [address] [place] [address] * (ABNORMAL) POC GLUCOSE (01/29/2023 10:30 PM CDT) [facility] GLUCOSE POC 169(H) 74 - 99 mg/dL 01/29/2023 10:30 PM CDT [facility] LABORATORY [facility] SPECIMEN SOURCE, GLUCOSE POC Whole Blood 01/29/2023 10:30 PM CDT [facility] LABORATORY [facility] Blood, whole 01/29/2023 10:3 0 PM CDT 01/30/2023 8:17 AM CDT Yazan Hernandez MD POINT OF CARE BLANCA G Performing Organization Address City/[facility]/ZIP Co de Phone Number [facility] [place] [facility]# [id number] [address] [place] [address] * BLOOD CULTURE (01/29/2023 10:28 PM CDT) [facility] BLOOD CULTURE No growth 02/03/2023 11:47 PM CDT [facility] LABORATORY [facility] Blood (Peripheral) Venipuncture / Unknown 01/29/2023 10:28 PM CDT 01/29/2023 10:41 PM CDT Zbigniew Marino MD MICROBIOLOGY - GEN ERAL ORDERABLES Performing Organization Address City/[facility]/ZIP Co de Phone Number [facility] CLIA# [id number] [address] [place] [address] * (ABNORMAL) POC GLUCOSE (01/29/2023 10:04 PM CDT) GLUCOSE POC 187(H) 74 - 99 mg/dL 01/29/2023 10:04 PM CDT [facility] LABORATORY [facility] SPECIMEN SOURCE, GLUCOSE POC Whole Blood 01/29/2023 10:04 PM CDT [facility] LABORATORY [facility] Blood, whole 01/29/2023 10:0 4 PM CDT 01/30/2023 8:17 AM CDT Yazan Hernandez MD POINT OF CARE TESTIN G Performing Organization Address [facility] Co de Phone Number [facility] CLIA# [id number] [address] [place] [address] * OSMOLALITY (01/29/2023 9:53 PM CDT) Pathologist [facility] OSMOLALITY 287 275 - 300 mOsm/kg 01/29/2023 11:53 PM CDT [facility] LABORATORY [facility] Blood Venipuncture / Unknown 01/29/2023 9:53 PM CDT 01/29/2023 9:57 PM CDT Mora Quevedo MD CHEMISTRY HANDY KONG Performing Organization Address City/[facility]/ZIP Co de Phone Number [facility] CLIA# [id number] [address] [place] [address] * (ABNORMAL) C-REACTIVE PROTEIN (01/29/2023 9:53 PM CDT) CRP 8.9(H) <5.0 mg/L 01/29/2023 10:39 PM CDT [facility] Blood Venipuncture / Unknown 01/29/2023 9:53 PM CDT 01/29/2023 9:57 PM CDT Mora Quevedo MD CHEMISTRY ORDHuma KONG [facility] CLIA# [id number] [address] [place] [address] * (ABNORMAL) PHOSPHORUS (01/29/2023 9:53 PM CDT) Pathologist [facility] PHOSPHORUS 1.5(L) 2.5 - 4.5 mg/dL 01/29/2023 10:32 PM CDT [facility] Blood Venipuncture / Unknown 01/29/2023 9:53 PM CDT 01/29/2023 9:57 PM CDT Mora Quevedo MD CHEMISTRY HANDY KONG Performing Organization Address City/[facility]/ZIP Co de Phone Number [facility] CLIA# [id number] [address] [place] [address] * MAGNESIUM LEVEL (01/29/2023 9:53 PM CDT) MAGNESIUM 1.7 1.6 - 2.6 mg/dL 01/29/2023 10:32 PM CDT [facility] Blood Venipuncture / Unknown 01/29/2023 9:53 PM CDT 01/29/2023 9:57 PM CDT Mora Quevedo MD CHEMISTRY HANDY KONG [facility]# [id number] [address] [place] [address] * LACTIC ACID (01/29/2023 9:53 PM CDT) LACTIC ACID 1.8 <=2.0 mmol/L 01/29/2023 10:15 PM CDT [facility] LABORATORY [facility] Blood Venipuncture / Unknown 01/29/2023 9:53 PM CDT 01/29/2023 9:57 PM CDT Zbigniew Marino MD CHEMISTRY ORDERABL ES [facility] [place] [facility]# [id number] [address] [place] [address] * (ABNORMAL) COMPREHENSIVE METABOLIC PANEL (01/29/2023 9:53 PM CDT) Pathologist [facility] SODIUM 131(L) 136 - 145 mmol/L 01/29/2023 10:32 PM CDT [facility] LABORATORY SERVICES [facility] POTASSIUM 3.7 3.5 - 5.0 mmol/L 01/29/2023 10:32 PM CDT [facility] LABORATORY [facility] CHLORIDE 101 98 - 107 mmol/L 01/29/2023 10:32 PM CDT [facility] LABORATORY SERVICES - . [facility] CO2 7(L) 22 - 29 mmol/L 01/29/2023 10:32 PM CDT [facility] LABORATORY SERVICES - . [facility] CALCIUM 9.1 8.6 - 10.2 mg/dL 01/29/2023 10:32 PM CDT [facility] LABORATORY SERVICES - [facility] Comment: Significant change from prior result, correlate clinically and redraw if necessary. Results called to Gretta Roman RN by Nurys Patricia at 10:31 PM on 01/29/2023 and read back verified. BUN 6 6 - 20 mg/dL 01/29/2023 10:32 PM CDT [facility] CREATININE 0.58 0.51 - 0.95 mg/dL 01/29/2023 10:32 PM [facility] GLUCOSE 184(H) 74 - 99 mg/dL 01/29/2023 10:32 PM [facility] TOTAL PROTEIN 6.4(L) 6.7 - 8.6 g/dL 01/29/2023 10:32 PM [facility] ALBUMIN 3.7 3.5 - 5.2 g/dL 01/29/2023 10:32 PM [facility] Comment: Significant change from prior result, correlate clinically and redraw if necessary. Results called to Gretta Roman RN by Nurys Patricia at 10:31 PM on 01/29/2023 and read back verified. BILIRUBIN TOTAL 0.7 0.3 - 1.2 mg/dL 01/29/2023 10:32 PM [facility] ALKALINE PHOSPHATASE 135(H) 35 - 104 U/L 01/29/2023 10:32 PM [facility] AST 11 <33 U/L 01/29/2023 10:32 PM [facility] ALT 9 <34 U/L 01/29/2023 10:32 PM [facility] GFR >60 >=60 mL/min/1.7 3 sq meter 01/29/2023 10:32 PM [facility] Comment:eGFR calculated with 2020 CKD-EPI equation. Vegetarian diet, extremely high or low muscle mass, and may affect results. Cystatin C with Glomerular Filtration Rate is a suitable alternative for these patients. ANION GAP 23(H) 8 - 16 mmol/L 01/29/2023 10:32 PM [facility] Blood Venipuncture / Unknown 01/29/2023 9:53 PM CDT 01/29/2023 9:57 PM T [facility] LABORATORY [facility] - 01/29/2023 10:32 PM CDT Samples containing indocyanine green cause interferences on Total and/or Direct Bilirubin and must not be measured. Zbigniew Marino MD CHEMISTRY ORDERABL ES [facility] CLIA# [id number] [address] [place] [address] * (ABNORMAL) CBC WITH DIFFERENTIAL (01/29/2023 9:53 PM CDT) WBC 18.5(H) 4.0 - 9.8 K/uL 01/29/2023 10:02 PM CDT [place] [facility] - . [facility] RBC 4.25 3.90 - 4.90 M/uL 01/29/2023 10:02 PM CDT [place] [facility] - . [facility] HEMOGLOBIN 10.9(L) 11.8 - 14.8 g/dL 01/29/2023 10:02 PM CDT [place] [facility] - . [facility] HEMATOCRIT 35.5 35.5 - 44.0 % 01/29/2023 10:02 PM CDT [place] [facility] MCV 83.5 82.0 - 99.0 fL 01/29/2023 10:02 PM CDT [place] [facility] - . [facility] MCH 25.6(L) 27.2 - 32.6 pg 01/29/2023 10:02 PM CDT [place] [facility] - . [facility] MCHC 30.7(L) 31.5 - 35.5 g/dL 01/29/2023 10:02 PM CDT [place] [facility] - . [facility] RDW 16.2(H) 11.5 - 14.5 % 01/29/2023 10:02 PM CDT [place] [facility] - . [facility] RDW-STDEV 49.0(H) 37.1 - 48.7 fL 01/29/2023 10:02 PM CDT [place] [facility] - . [facility] PLATELETS 422(H) 140 - 350 K/uL 01/29/2023 10:02 PM CDT [place] [facility] - . [facility] MPV 8.7(L) 9.3 - 12.4 fL 01/29/2023 10:02 PM CDT [place] [facility] - . [facility] NEUTROPHILS 80 % 01/29/2023 10:02 PM CDT [place] [facility] LYMPHOCYTES 8 % 01/29/2023 10:02 PM CDT [facility] MONOCYTES 7 % 01/29/2023 10:02 PM CDT [facility] EOSINOPHILS 0 % 01/29/2023 10:02 PM T [facility] BASOPHILS 0 % 01/29/2023 10:02 PM T [facility] IMMATURE GRANULOCYTES 4 % 01/29/2023 10:02 PM CDT [facility] [facility] LABORATORY [facility] Comment:IG (Immature Granulo cyte) count includes Metamyelocytes, Myelocytes, and Promyelocytes NEUTROPHIL ABSOLUTE 14.79(H) 1.90 - 7.00 K/uL 01/29/2023 10:02 PM CDT [facility] LYMPHOCYTE ABSOLUTE 1.55 0.70 - 4.50 K/uL 01/29/2023 10:02 PM CDT [facility] MONOCYTE ABSOLUTE 1.32(H) 0.10 - 1.30 K/uL 01/29/2023 10:02 PM CDT [facility] LABORATORY [facility] EOSINOPHIL ABSOLUTE 0.06 0.00 - 0.70 K/uL 01/29/2023 10:02 PM CDT [facility] LABORATORY [facility] BASOPHILS ABSOLUTE 0.08 0.00 - 0.20 K/uL 01/29/2023 10:02 PM CDT [facility] LABORATORY [facility] IMMATURE GRANULOCYTES ABSOLUTE 0.74(H) 0.00 - 0.03 K/uL 01/29/2023 10:02 PM T [facility] LABORATORY [facility] Blood Venipuncture / Unknown 01/29/2023 9:53 PM CDT 01/29/2023 9:57 PM CDT Zbigniew Marino MD HEMATOLOGY ORDERAB LES [facility] CLIA# [id number] 5 [facility] [address] [address] * (ABNORMAL) POC GLUCOSE (01/29/2023 8:16 PM CDT) GLUCOSE POC 144(H) 74 - 99 mg/dL 01/29/2023 8:16 PM CDT [facility] LABORATORY [facility] SPECIMEN SOURCE, GLUCOSE POC Whole Blood 01/29/2023 8:16 PM CDT [facility] LABORATORY [facility] Blood, whole 01/29/2023 8:16 PM CDT 01/29/2023 9:10 PM CDT Zbigniew Marino MD POINT OF CARE TEST ING Performing Organization Address [facility]/State/ZIP Co de Phone Number [facility] [employer] [facility] CLIA# [id number] [address] [place] [address] * (ABNORMAL) POC GLUCOSE (01/29/2023 7:02 PM CDT) GLUCOSE POC 134(H) 74 - 99 mg/dL 01/29/2023 7:02 PM CDT [facility] LABORATORY [facility] SPECIMEN SOURCE, GLUCOSE POC Whole Blood 01/29/2023 7:02 PM CDT [facility] LABORATORY [facility] Blood, whole 01/29/2023 7:02 PM CDT 01/29/2023 7:10 PM CDT Zbigniew Marino MD POINT OF CARE TEST ING Performing Organization Address [facility]/ZIP Co de Phone Number [facility] [employer] [facility] CLIA# [id number] [address] [place] [address] * (ABNORMAL) PROTEIN/CREATININE RATIO, URINE (01/29/2023 6:58 PM CDT) PROTEIN CONCENTRATION 115(H) 0 - 20 mg/dL 01/29/2023 7:50 PM CDT [facility] LABORATORY [facility] CREATININE, URINE 57.8 29.0 - 226.0 mg/dL 01/29/2023 7:50 PM CDT [facility] Comment:Reference Range vari es with fluid intake and diet. PROTEIN/CREAT RATIO, URINE 1.99(H) 0.00 - 0.19 mg/mg Creatinine 01/29/2023 7:50 PM CDT [facility] Urine URINE SPECIMEN OBTAINED BY CLEAN CATCH PROCEDURE / Unknown Collection / Unknown 01/29/2023 6:58 PM CDT 01/29/2023 7:14 PM CDT Narrative [facility] - 01/29/2023 7:50 PM CDT The ACOG 2013 Guidelines recommend using a cutoff of >/= 0.30 protein/creatinine ratio for the diagnosis and management of preeclampsia. Zbigniew Marino MD URINE ORDERABLES [facility]# [id number] [address] [place] [address] * INFLUENZA A/B, RSV AND COVID-19 PCR PANEL (01/29/2023 6:49 PM CDT) COVID-19 PCR NOT DETECTED Not Detected 01/30/20 7:57 PM CDT [facility] Influenza A by PCR NOT DETECTED Not Detected 01/29/2023 7:57 PM CDT [facility] Influenza B by PCR NOT DETECTED Not Detected 01/29/2023 7:57 PM CDT [facility] RSV by PCR NOT DETECTED Not Detected 01/29/2023 7:57 PM CDT [facility] Upper Respiratory ENTIRE NASOPHARYNX / Unknown Collection / Unknown 01/29/2023 6:49 PM CDT 01/29/2023 6:56 PM CDT Narrative [facility] - 01/29/2023 7:57 PM CDT This test has been authorized by the FDA under an Emergency Use Authorization for use by authorized laboratories.?? This test has been validated in accordance with the FDA's guidance regarding Coronavirus Disease-2019 testing.?? Optimum specimen types and timing for peak viral levels during infection have not been determined.?? A negative RT-PCR result does not rule out infection with the 2019-Novel Coronavirus. Zbigniew Marino MD MICROBIOLOGY - GEN ERAL ORDERABLES [facility] LABORATORY SERVICES - [facility]# [id number] [address] [place] [address] * (ABNORMAL) LACTATE DEHYDROGENASE (01/29/2023 6:48 PM CDT) Pathologist [facility] LD (LACTATE DEHYDROGENASE) 240(H) 135 - 214 U/L 01/29/2023 7:34 PM CDT [facility] Blood Venipuncture / Unknown 01/29/2023 6:48 PM CDT 01/29/2023 6:56 PM CDT Zbigniew Marino MD CHEMISTRY ORDERABL ES Performing Organization Address [facility]/ZIP Co de Phone Number [facility] LABORATORY SERVICES - [facility]# [id number] [address] [place] [address] * TYPE AND SCREEN (01/29/2023 6:48 PM CDT) Pathologist [facility] ABO GROUP O 01/29/2023 9:05 PM CDT [facility] LABORATORY SERVICES -- [facility] RH (D) TYPE Positive 01/29/2023 9:05 PM CDT [facility] LABORATORY SERVICES -- [facility] ANTIBODY SCREEN Negative 01/29/2023 9:05 PM CDT [facility] LABORATORY SERVICES -- [facility] Blood Venipuncture / Unknown 01/29/2023 6:48 PM CDT 01/29/2023 7:35 PM CDT Zbigniew Marino MD BLOOD BANK ORDERAB LES [facility] [employer] SERVICES -- [facility]# [id number] [address] [place] [address] * (ABNORMAL) URINALYSIS WITH REFLEX MICROSCOPIC (01/29/2023 5:27 PM CDT) COLOR UA Yellow Pale to Dark Yellow 01/29/2023 6:09 PM [facility] [place] [facility] CLARITY UA Slightly Cloudy(A) Clear 01/29/2023 6:09 PM [facility] [place] [facility] SPECIFIC GRAVITY UA 1.020 1.003 - 1.035 01/29/2023 6:09 PM [facility] [place] [facility] PH UA 5.0 5.0 - 8.0 01/29/2023 6:09 PM T [place] [facility] LEUKOCYTE ESTERASE UA Negative Negative 01/29/2023 6:09 PM T [place] [facility] NITRITE UA Negative Negative 01/29/2023 6:09 PM [facility] LABORATORY [facility] PROTEIN UA 3+(A) Negative 01/29/2023 6:09 PM [facility] [place] [facility] GLUCOSE UA 1+(A) Negative 01/29/2023 6:09 PM [facility]AT[facility] KETONES UA 2+(A) Negative 01/29/2023 6:09 PM [facility] LABORATORY SERVICES [facility] UROBILINOGEN UA Normal <2.0 mg/dL 6:09 PM [facility] BILIRUBIN UA Negative Negative 01/29/2023 6:09 PM [facility] BLOOD UA 1+(A) Negative 01/29/2023 6:09 PM [facility] LABORATORY SERVICES [facility] WBC UA 3-5(A) 0 - 2 /hpf 01/29/2023 6:09 PM T [place] [facility] RBC UA 3-5(A) 0 - 2 /hpf 01/29/2023 6:09 PM [employer] [place] [facility] BACTERIA UA Negative Negative /hpf 01/29/2023 6:09 PM [facility] LABORATORY SERVICES [facility] EPITHELIAL CELLS, URINE 6-10(A) 0 - 5 /hpf 01/29/2023 6:09 PM [facility] Urine URINE SPECIMEN OBTAINED BY CLEAN CATCH PROCEDURE / Unknown Collection / Unknown 01/29/2023 5:27 PM CDT 01/29/2023 5:53 PM CDT Frank Morley MD URINE ORDERABLES Performing Organization Address [facility]/ZIP Co de Phone Number [facility]# [id number] [address] [place] [address] * (ABNORMAL) POC GLUCOSE (01/29/2023 5:16 PM CDT) GLUCOSE POC 128(H) 74 - 99 mg/dL 01/29/2023 5:16 PM CDT [facility] LABORATORY [facility] SPECIMEN SOURCE, GLUCOSE POC Whole Blood 01/29/2023 5:16 PM CDT [facility] LABORATORY [facility] Blood, whole 01/29/2023 5:16 PM CDT 01/29/2023 5:24 PM CDT Zbigniew Marino MD POINT OF CARE TEST ING Performing Organization Address [facility] Co de Phone Number [facility] [place] [facility] CLKY# [id number] [address] [place] [address] * (ABNORMAL) URIC ACID (01/29/2023 5:03 PM CDT) URIC ACID 7.7(H) 2.4 - 5.7 mg/dL 01/29/2023 8:46 PM CDT [facility] Blood Venipuncture / Unknown 01/29/2023 5:03 PM CDT 01/29/2023 5:15 PM CDT Zbigniew Marino MD CHEMISTRY ORDERABL ES Performing Organization Address [facility]/ZIP Co de Phone Number [facility]# [id number] [address] [place] [address] * (ABNORMAL) KETONES/BETA HYDROXYBUTYRATE (01/29/2023 5:03 PM CDT) Pathologist [facility] BETA HYDROXYBUTYRATE 6.9(H) <0.4 mmol/L 01/29/2023 8:46 PM CDT [facility] LABORATORY SERVICES [facility] Blood Venipuncture / Unknown 01/29/2023 5:03 PM CDT 01/29/2023 5:15 PM CDT Frank Morley MD CHEMISTRY ORDERABLES [facility] [id number] [address] [address] * (ABNORMAL) COMPREHENSIVE METABOLIC PANEL (01/29/2023 5:03 PM CDT) [facility] SODIUM 134(L) 136 - 145 mmol/L 01/29/2023 6:11 PM T [facility] LABORATORY SERVICES [facility] POTASSIUM 4.3 3.5 - 5.0 mmol/L 01/29/2023 6:11 PM T [facility] LABORATORY SERVICES [facility]. [facility] CHLORIDE 100 98 - 107 mmol/L 01/29/2023 6:11 PM T [facility] LABORATORY SERVICES - [facility] CO2 7(L) 22 - 29 mmol/L 01/29/2023 6:11 PM T [facility] LABORATORY SERVICES - [facility] CALCIUM 10.9(H) 8.6 - 10.2 mg/dL 01/29/2023 6:11 PM T [facility] LABORATORY SERVICES - [facility] BUN 7 6 - 20 mg/dL 01/29/2023 6:11 PM T [facility] LABORATORY SERVICES - [facility] CREATININE 0.65 0.51 - 0.95 mg/dL 01/29/2023 6:11 PM T [facility] LABORATORY SERVICES - [facility] GLUCOSE 139(H) 74 - 99 mg/dL 01/29/2023 6:11 PM T [facility] LABORATORY SERVICES - [facility] TOTAL PROTEIN 9.3(H) 6.7 - 8.6 g/dL 01/29/2023 6:11 PM T [facility] LABORATORY SERVICES - [facility] ALBUMIN 5.4(H) 3.5 - 5.2 g/dL 01/29/2023 6:11 PM CDT [facility] BILIRUBIN TOTAL 0.8 0.3 - 1.2 mg/dL 01/29/2023 6:11 PM T [facility] ALKALINE PHOSPHATASE 195(H) 35 - 104 U/L 01/29/2023 6:11 PM T [facility] AST 15 <33 U/L 01/29/2023 6:11 PM T [facility] ALT 10 <34 U/L 01/29/2023 6:11 PM T [facility] GFR >60 >=60 mL/min/1.7 3 sq meter 01/29/2023 6:11 PM T [facility] Comment:eGFR calculated with 2020 CKD-EPI equation. Vegetarian diet, extremely high or low muscle mass, and may affect results. Cystatin C with Glomerular Filtration Rate is a suitable alternative for these patients. ANION GAP 27(H) 8 - 16 mmol/L 01/29/2023 6:11 PM T [facility] Blood Venipuncture / Unknown 01/29/2023 5:03 PM CDT 01/29/2023 5:15 PM CDT [facility] - 01/29/2023 6:11 PM CDT Samples containing indocyanine green cause interferences on Total and/or Direct Bilirubin and must not be measured. Frank Morley MD CHEMISTRY ORDERABLES [facility]# [id number] 5 [facility] [place] [address] * (ABNORMAL) CBC WITH DIFFERENTIAL (01/29/2023 5:03 PM CDT) WBC 20.2(H) 4.0 - 9.8 K/uL 01/29/2023 5:46 PM T [facility] RBC 5.02(H) 3.90 - 4.90 M/uL 01/29/2023 5:46 PM CDT [facility] HEMOGLOBIN 12.7 11.8 - 14.8 g/dL 01/29/2023 5:46 PM CDT [facility] HEMATOCRIT 42.2 35.5 - 44.0 % 01/29/2023 5:46 PM CDT [facility] MCV 84.1 82.0 - 99.0 fL 01/29/2023 5:46 PM CDT [facility] MCH 25.3(L) 27.2 - 32.6 pg 01/29/2023 5:46 PM CDT [facility] MCHC 30.1(L) 31.5 - 35.5 g/dL 01/29/2023 5:46 PM CDT [facility] RDW 16.1(H) 11.5 - 14.5 % 01/29/2023 5:46 PM CDT [facility] LABORATORY SERVICES - [facility] RDW-STDEV 49.1(H) 37.1 - 48.7 fL 01/29/2023 5:46 PM CDT [facility] LABORATORY SERVICES - [facility] PLATELETS 487(H) 140 - 350 K/uL 01/29/2023 5:46 PM CDT [facility]ORATORY SERVICES [facility] MPV 8.7(L) 9.3 - 12.4 fL 01/29/2023 5:46 PM CDT [facility]AT[facility] SERVICES [facility] NEUTROPHILS 80 % 01/29/2023 5:46 PM CDT [facility]ATORY SERVICES [facility] LYMPHOCYTES 8 % 01/29/2023 5:46 PM CDT [facility] MONOCYTES 7 % 01/29/2023 5:46 PM CDT [facility] EOSINOPHILS 0 % 01/29/2023 5:46 PM CDT [facility] BASOPHILS 1 % 01/29/2023 5:46 PM CDT [facility] IMMATURE GRANULOCYTES 4 % 01/29/2023 5:46 PM CDT [facility] Comment:IG (Immature Granulo cyte) count includes Metamyelocytes, Myelocytes, and Promyelocytes NEUTROPHIL ABSOLUTE 16.12(H) 1.90 - 7.00 K/uL 01/29/2023 5:46 PM CDT [facility] LYMPHOCYTE ABSOLUTE 1.66 0.70 - 4.50 K/uL 01/29/2023 5:46 PM CDT [facility] MONOCYTE ABSOLUTE 1.46(H) 0.10 - 1.30 K/uL 01/29/2023 5:46 PM CDT [facility] EOSINOPHIL ABSOLUTE 0.00 0.00 - 0.70 K/uL 01/29/2023 5:46 PM CDT [facility] BASOPHILS ABSOLUTE 0.10 0.00 - 0.20 K/uL 01/29/2023 5:46 PM CDT [facility] LABORATORY SERVICES - . [facility] IMMATURE GRANULOCYTES ABSOLUTE 0.87(H) 0.00 - 0.03 K/uL 01/29/2023 5:46 PM CDT [facility] Blood Venipuncture / Unknown 01/29/2023 5:03 PM CDT 01/29/2023 5:15 PM CDT Frank Morley MD HEMATOLOGY ORDERABLE S [facility] [employer] [facility] CLIA# [id number] [address] [facility] [place] [address] * (ABNORMAL) POC GLUCOSE (01/29/2023 4:05 PM CDT) GLUCOSE POC 134(H) 74 - 99 mg/dL 01/29/2023 4:05 PM CDT [facility] SPECIMEN SOURCE, GLUCOSE POC Whole Blood 01/29/2023 4:05 PM CDT [facility] LABORATORY SERVICES [facility] Blood, whole 01/29/2023 4:05 PM CDT 01/29/2023 4:13 PM CDT Frank Morley MD POINT OF CARE TESTIN G [facility] LABORATORY [facility] CLIA# [id number] [address] [address] * RPR (09/25/2022) ABSTRACTED RPR Non Reactive EXTERNAL LAB Blood Historical Provider CHEMISTRY ORDERABLES EXTERNAL LAB * TYPE AND SCREEN (09/25/2022) ABSTRACTED ABOGROUP O EXTERNAL LAB ABSTRACTED RH(D) TYPE Positive EXTERNAL LAB Blood Historical Provider BLOOD BANK ORDERABLE S EXTERNAL LAB * HIV DETECTION W/REFLX CONFIRMATION (09/25/2022) ABSTRACTED HIV-1 AND 2 ABS Non Reactive EXTERNAL LAB Blood Historical Provider CHEMISTRY ORDERABLES EXTERNAL LAB * HEPATITIS B SURFACE ANTIGEN (09/25/2022) ABSTRACTED HEPATITIS B SURFACE AG Non Reactive EXTERNAL LAB Blood Historical Provider CHEMISTRY ORDERABLES EXTERNAL LAB * RUBELLA IGG (09/25/2022) ABSTRACTED RUBELLA IGG Immune EXTERNAL LAB Blood Historical Provider CHEMISTRY ORDERABLES EXTERNAL LAB documented in this encounter Visit Diagnoses Diagnosis MFMtx/OBH: DKA (resolved), T1DM- Primary Unspecified high-risk Encounter for blood typing Pre-existing type 1 diabetes mellitus in in third trimester Diabetes mellitus, antepartum Diabetic gastroparesis Type II or unspecified type diabetes mellitus with neurological manifestations, not stated as uncontrolled Intractable vomiting with nausea Type 1 diabetes mellitus affecting , antepartum Starvation ketoacidosis Acidosis Mild pre-eclampsia in third trimester Mild or unspecified pre-eclampsia, antepartum documented in this encounter Administered Medications Inactive Administered Medications - up to 3 most recent administrations Medication Order MAR Action Action Date Dose Rate Site acetaminophen (TYLENOL) tablet 650 mg 650 mg, Oral, ONE TIME ONLY, 1 dose, On Wed02/07/23 at 0600, Routine, PACU Given 02/07/2023 6:58 AM CDT 650 mg acetaminophen (TYLENOL) tablet 650 mg 650 mg, Oral, EVERY 6 HOURS, 4 doses, First dose on Wed02/07/23 at 0615, Last dose on Wed02/08/23 at 0000, Routine, Post-op - Floor Given 02/08/2023 12:12 AM CDT 650 mg Given 02/07/2023 6:42 PM CDT 650 mg Given 02/07/2023 12:41 PM CDT 650 mg acetaminophen (TYLENOL) tablet 650 mg 650 mg, Oral, EVERY 6 HOURS, First dose on Wed02/08/23 at 0615, Until Discontinued, Routine, Post-op - Floor Given 02/13/2023 9:09 AM CDT 650 mg Given 02/13/2023 2:22 AM CDT 650 mg Given 02/12/2023 8:19 PM CDT 650 mg calcium as carbonate (TUMS) 500 mg (200 mg elemental) chewable tablet 400 mg 400 mg, Oral, EVERY 6 HOURS PRN, Starting on Wed01/29/23 at 1911, Until 02/13/23 at 1542, Indigestion, Routine carboprost tromethamine (HEMABATE) 250 mcg/mL injection 1 mL 1 mL (250 mcg), IM, EVERY 15 MINUTES PRN, 8 doses, Starting on Wed02/07/23 at 0447, Until 02/13/23 at 1542, Other (See Comment), for excessive bleeding in the immediate period as needed after consultation with resident or attending physician - Maximum of 8 doses, Routine dextrose 5% - lactated ringers infusion IV, at 200 mL/hr, CONTINUOUS, Starting on Wed01/29/23 at 2145, Until 01/30/23 at 2144, Routine Rate Verify 01/30/2023 8:00 PM CDT 200 mL/hr Rate Verify 01/30/2023 7:00 PM CDT 200 mL/hr Rate Verify 01/30/2023 5:00 PM CDT 200 mL/hr dextrose 5% - lactated ringers infusion IV, at 150 mL/hr, CONTINUOUS, Starting on 01/30/23 at 2230, Until 01/31/23 at 2229, Routine New Bag 01/31/2023 10:04 PM CDT 150 m L/hr Rate Verify 01/31/2023 3:00 PM CDT 150 mL/hr Rate Verify 01/31/2023 2:57 PM CDT 150 mL/hr dextrose 5% - lactated ringers infusion IV, at 75 mL/hr, CONTINUOUS, Starting on Wed02/03/23 at 0145, Until Nurys 02/04/23 at 0144, Routine Rate Verify 02/03/2023 2:30 AM CDT 40 mL/ hr Rate Change 02/03/2023 2:29 AM CDT 40 mL/hr New Bag 02/03/2023 1:35 AM CDT 75 mL/hr dextrose 5% - lactated ringers infusion IV, at 50 mL/hr, CONTINUOUS, Starting on 02/06/23 at 1715, Until 02/07/23 at 1714, Routine New Bag 02/06/2023 5:15 PM CDT 50 mL/hr dextrose 5% - sodium chloride 0.9% infusion IV, at 40 mL/hr, SEE ADMIN INSTRUCTIONS, Starting on Wed01/29/23 at 2137, Until 02/13/23 at 1542, Routine dextrose 50% (D50) syringe 12.5 Gram 12.5 Gram, IV, SEE ADMIN INSTRUCTIONS, Starting on Wed01/29/23 at 2139, Until 02/13/23 at 1542, Routine dextrose 50% (D50) syringe 25 Gram 25 Gram, IV, SEE ADMIN INSTRUCTIONS, Starting on Wed01/29/23 at 2139, Until 02/13/23 at 1542, Routine docusate sodium (COLACE) capsule 100 mg 100 mg, Oral, TWO TIMES DAILY, First dose on Wed01/29/23 at 2100, Until Discontinued, Routine Given 02/13/2023 9:09 AM CDT 100 mg Given 02/12/2023 8:15 AM CDT 100 mg Given 02/11/2023 9:05 AM CDT 100 mg enoxaparin (LOVENOX) injection 40 mg 40 mg, subCUT, EVERY 24 HOURS, First dose on 02/08/23 at 0800, Until Discontinued, Routine, Indication: Prophylaxis of VTE Given 02/13/2023 9:09 AM CDT 40 mg Abdominal Tissue Given 02/12/2023 8:15 AM CDT 40 mg Ab domen, Left Lower Quadrant Given 02/11/2023 9:05 AM CDT 40 mg Ab domen, Right Upper Quadrant famotidine (PEPCID) tablet 20 mg 20 mg, Oral, TWO TIMES DAILY PRN, Starting on Wed01/29/23 at 1911, Until 02/13/23 at 1542, Dyspepsia, Indigestion, Routine famotidine PF (PEPCID) 20 mg/2 mL injection 20 mg 20 mg, IV, TWO TIMES DAILY PRN, Starting on Wed01/29/23 at 1911, Until 02/13/23 at 1542, Dyspepsia, Indigestion, Routine Given 02/03/2023 3:58 AM CDT 20 mg ferrous sulfate tablet 325 mg 325 mg, Oral, DAILY, First dose on Wed02/07/23 at 0900, Until Discontinued, Routine, Post-op - Floor Given 02/13/2023 9:09 AM CDT 325 mg Given 02/12/2023 8:15 AM CDT 325 mg Given 02/11/2023 9:05 AM CDT 325 mg glucagon HCL 1 mg/mL injection 1 mg 1 mg, IM, SEE ADMIN INSTRUCTIONS, Starting on Wed01/29/23 at 2139, Until 02/13/23 at 1542, Routine haloperidol lactate (HALDOL) injection 0.5 mg 0.5 mg, IV, ONE TIME PRN, 1 dose, Starting on Wed02/07/23 at 0455, Until 02/13/23 at 1542, Other (See Comment), N/V in OBRR, Routine heparin injection 10,000 Units 10,000 Units, subCUT, EVERY 12 HOURS (BlD), First dose on Wed01/31/23 at 2100, Until Discontinued, Routine Given 02/02/2023 9:12 PM CDT 10,000 Units Abdomen, Right Lower Quadrant Given 02/01/2023 9:41 PM CDT 10,000 Units Abdomen, Left Upper Quadrant Given 02/01/2023 10:02 AM CDT 10,000 Units Abdomen, Left Upper Quadrant ibuprofen (MOTRIN) tablet 600 mg 600 mg, Oral, EVERY 6 HOURS, 4 doses, First dose on Wed02/07/23 at 1200, Last dose on Wed02/08/23 at 0600, Routine, Post-op - Floor Given 02/08/2023 6:35 AM CDT 60 0 mg Given 02/08/2023 12:12 AM CDT 600 mg Given 02/07/2023 6:42 PM CDT 600 mg ibuprofen (MOTRIN) tablet 600 mg 600 mg, Oral, EVERY 6 HOURS, First dose on Wed02/08/23 at 1200, Until Discontinued, Routine, Post-op - Floor Given 02/13/2023 9:09 AM CDT 600 mg Given 02/13/2023 2:22 AM CDT 600 mg Given 02/12/2023 8:19 PM CDT 600 mg insulin glargine-yfgn injection 10 Units 10 Units, subCUT, DAILY WITH BREAKFAST, First dose (after last modification) on Wed02/02/23 at 0800, Until Discontinued, Routine Given 02/02/2023 8:19 AM CDT 10 Units Left Arm insulin glargine-yfgn injection 10 Units 10 Units, subCUT, DAILY AT BEDTIME, First dose (after last modification) on Wed02/02/23 at 2100, Until Discontinued, Routine Given 02/02/2023 9:00 PM CDT 10 Units Arm, Left Upper insulin glargine-yfgn injection 10 Units 10 Units, subCUT, DAILY AT BEDTIME, First dose (after last modification) on Wed02/07/23 at 2100, Until Discontinued, Routine Given 02/07/2023 9:19 PM CDT 10 Units Left Arm insulin glargine-yfgn injection 10 Units 10 Units, subCUT, DAILY AT BEDTIME, First dose (after last modification) on Wed02/10/23 at 2100, Until Discontinued, Routine Given 02/10/2023 10:09 PM CDT 10 Units Arm, Left insulin glargine-yfgn injection 12 Units 12 Units, subCUT, DAILY WITH BREAKFAST, First dose on Wed02/01/23 at 0800, Until Discontinued, Routine Given 02/01/2023 9:55 AM CDT 12 Units Arm, Left Upper insulin glargine-yfgn injection 12 Units 12 Units, subCUT, DAILY AT BEDTIME, First dose on 02/01/23 at 2100, Until Discontinued, Routine Given 02/01/2023 9:39 PM CDT 12 Units Arm, Left Upper insulin glargine-yfgn injection 12 Units 12 Units, subCUT, DAILY AT BEDTIME, First dose (after last modification) on Nurys 02/11/23 at 2100, Until Discontinued, Routine Given 02/12/2023 10:01 PM CDT 12 Units Abdomen, Left Lower Quadrant Patient/Family Admin 02/11/2023 10:29 PM CDT 12 Units Abdomen, Left Lower Quadrant insulin glargine-yfgn injection 14 Units 14 Units, subCUT, DAILY BEFORE LUNCH, First dose on 01/31/23 at 1300, Until Discontinued, Routine Given 01/31/2023 1:53 PM CDT 14 Units Arm, Right Upper insulin glargine-yfgn injection 4 Units 4 Units, subCUT, DAILY WITH BREAKFAST, First dose on 02/07/23 at 0815, Until Discontinued, Routine Given 02/07/2023 8:14 AM CDT 4 Units Arm, Left Upper insulin glargine-yfgn injection 4 Units 4 Units, subCUT, ONE TIME ONLY, 1 dose, On Wed02/10/23 at 0800, Routine Given 02/10/2023 9:27 AM CDT 4 Units A rm, Left insulin glargine-yfgn injection 6 Units 6 Units, subCUT, DAILY AT BEDTIME, 1 dose, First dose on 01/31/23 at 2100, Routine Given 01/31/2023 9:57 PM CDT 6 Units Arm, Left Upper insulin glargine-yfgn injection 6 Units 6 Units, subCUT, DAILY WITH BREAKFAST, First dose on 02/07/23 at 0815, Until Discontinued, Routine Given 02/07/2023 8:14 AM CDT 6 Units Arm, Left Upper insulin glargine-yfgn injection 6 Units 6 Units, subCUT, DAILY AT BEDTIME, First dose (after last modification) on Tu02/09/23 at 2100, Until Discontinued, Routine Given 02/09/2023 10:30 PM CDT 6 Units Arm, Right insulin glargine-yfgn injection 8 Units 8 Units, subCUT, DAILY WITH BREAKFAST, First dose (after last modification) on Wed02/03/23 at 0800, Until Discontinued, Routine Given 02/06/2023 8:55 AM CDT 8 Units Arm, Left Upper Given 02/05/2023 9:26 AM CDT 8 Units Ar m, Left Upper Given 02/04/2023 10:14 AM CDT 8 Units A rm, Left Upper insulin glargine-yfgn injection 8 Units 8 Units, subCUT, DAILY AT BEDTIME, First dose (after last modification) on Wed02/03/23 at 2100, Until Discontinued, Routine Given 02/06/2023 9:51 PM CDT 8 Units Arm, Right Upper Given 02/05/2023 9:55 PM CDT 8 Units Ar m, Left Upper Given 02/04/2023 8:56 PM CDT 8 Units Ar m, Left Upper insulin glargine-yfgn injection 8 Units 8 Units, subCUT, DAILY AT BEDTIME, First dose (after last modification) on Wed02/08/23 at 2100, Until Discontinued, Routine Given 02/08/2023 9:58 PM CDT 8 Units Left Arm insulin glargine-yfgn injection 8 Units 8 Units, subCUT, DAILY WITH BREAKFAST, First dose (after last modification) on Wed02/08/23 at 0845, Until Discontinued, Routine Given 02/08/2023 9:43 AM CDT 8 Units Right Arm insulin glargine-yfgn injection 8 Units 8 Units, subCUT, ONE TIME ONLY, 1 dose, On Nurys 02/11/23 at 0800, Routine Patient/Family Admin 02/11/2023 9:00 AM CDT 8 Units Abdomen, Left Upper Quadrant insulin glargine-yfgn injection 8 Units 8 Units, subCUT, ONE TIME ONLY, 1 dose, On Wed02/12/23 at 0730, Routine Patient/Family Admin 02/12/2023 8:18 AM CDT 8 Units Abdomen, Right Upper Quadrant insulin lispro (HumaLOG) injection 0-5 Units 0-5 Units, subCUT, THREE TIMES DAILY WITH MEALS, First dose on 01/31/23 at 1800, Until Discontinued, Routine Given 02/06/2023 8:44 PM CDT 2 Units Arm, Left Upper Given 02/05/2023 7:33 PM CDT 3 Units Ar m, Right Upper Given 02/05/2023 9:39 AM CDT 1 Units Ar m, Left Upper insulin lispro (HumaLOG) injection 1 Units 1 Units, subCUT, ONE TIME ONLY, 1 dose, On Nurys 02/11/23 at 0515, Routine Given 02/11/2023 5:24 AM CDT 1 Units Arm, Left insulin lispro (HumaLOG) injection 1 Units 1 Units, subCUT, ONE TIME ONLY, 1 dose, On Nurys 02/11/23 at 2130, Routine Patient/Family Admin 02/11/2023 9:24 PM CDT 1 Units Abdomen, Right Lower Quadrant insulin lispro (HumaLOG) injection 2 Units 2 Units, subCUT, ONE TIME ONLY, 1 dose, On 02/07/23 at 0500, Routine Given 02/07/2023 5:05 AM CDT 2 Units Arm, Left Upper insulin lispro (HumaLOG) injection 2 Units 2 Units, subCUT, ONE TIME ONLY, 1 dose, On Wed02/10/23 at 0230, Routine Given 02/10/2023 2:37 AM CDT 2 Units Arm, Right insulin lispro (HumaLOG) injection 2 Units 2 Units, subCUT, ONE TIME ONLY, 1 dose, On Wed02/10/23 at 0515, Routine Given 02/10/2023 5:23 AM CDT 2 Units Arm, Left insulin lispro (HumaLOG) injection 2 Units 2 Units, subCUT, ONE TIME ONLY, 1 dose, On Wed02/10/23 at 1145, Routine Given 02/10/2023 11:56 AM CDT 2 Units Arm, Right insulin lispro (HumaLOG) injection 2 Units 2 Units, subCUT, ONE TIME ONLY, 1 dose, On Wed02/10/23 at 2230, Routine Given 02/10/2023 10:38 PM CDT 2 Units Arm, Left insulin lispro (HumaLOG) injection 2 Units 2 Units, subCUT, ONE TIME ONLY, 1 dose, On Wed02/10/23 at 2245, Routine Given 02/10/2023 10:38 PM CDT 2 Units Arm, Left insulin lispro (HumaLOG) injection 3 Units 3 Units, subCUT, ONE TIME ONLY, 1 dose, On Wed02/03/23 at 1330, Routine Given 02/03/2023 1:21 PM CDT 3 Units Arm, Left Upper insulin lispro (HumaLOG) injection 3 Units 3 Units, subCUT, ONE TIME ONLY, 1 dose, On Wed02/05/23 at 1145, Routine Given 02/05/2023 12:06 PM CDT 3 Units Arm, Right Upper insulin lispro (HumaLOG) injection 3 Units 3 Units, subCUT, ONE TIME ONLY, 1 dose, On Nurys 02/11/23 at 1130, Routine Patient/Family Admin 02/11/2023 11:26 AM CDT 3 Units Arm, Left Upper insulin lispro (HumaLOG) injection 3 Units 3 Units, subCUT, ONE TIME ONLY, 1 dose, On Wed02/12/23 at 0515, Routine Patient/Family Admin 02/12/2023 5:07 AM CDT 3 Units Abdomen, Right Lower Quadrant insulin lispro (HumaLOG) injection 4 Units 4 Units, subCUT, DAILY WITH LUNCH, First dose on 02/07/23 at 1200, Until Discontinued, Routine Given 02/08/2023 1:33 PM CDT 4 Units Left Arm Given 02/07/2023 12:51 PM CDT 2 Units A rm, Left insulin lispro (HumaLOG) injection 4 Units 4 Units, subCUT, DAILY WITH SUPPER, First dose on 02/07/23 at 1700, Until Discontinued, Routine Given 02/08/2023 7:02 PM CDT 4 Units Right Arm Given 02/07/2023 5:42 PM CDT 2 Units Ar m, Right insulin lispro (HumaLOG) injection 4 Units 4 Units, subCUT, ONE TIME ONLY, 1 dose, On Nurys 02/11/23 at 0230, Routine Given 02/11/2023 2:36 AM CDT 4 Units A rm, Left insulin lispro (HumaLOG) injection 4 Units 4 Units, subCUT, ONE TIME ONLY, 1 dose, On Nurys 02/11/23 at 0515, Routine Given 02/11/2023 5:24 AM CDT 4 Units A rm, Left insulin lispro (HumaLOG) variable dose injection subCUT, THREE TIMES DAILY WITH MEALS, First dose on 01/31/23 at 1800, Until Discontinued, Routine Given 02/06/2023 8:45 PM CDT 4 Units Arm, Left Upper Given 02/06/2023 12:54 PM CDT 24 Units A rm, Left Upper Given 02/06/2023 8:57 AM CDT 9 Units Ar m, Left Upper insulin lispro (HumaLOG) variable dose injection subCUT, THREE TIMES DAILY WITH MEALS, First dose on Wed02/09/23 at 1330, Until Discontinued, Routine Given 02/09/2023 6:26 PM CDT 6 Units Left Arm Given 02/09/2023 1:31 PM CDT 4 Units Le ft Arm insulin lispro (HumaLOG) variable dose injection subCUT, THREE TIMES DAILY WITH MEALS, First dose (after last modification) on Wed02/10/23 at 0800, Until Discontinued, Routine Given 02/13/2023 9:20 AM CDT 7 Units Abdomen, Right Lower Quadrant Given 02/12/2023 8:15 PM CDT 7 Units Ab domen, Right Lower Quadrant Given 02/12/2023 2:08 PM CDT 7 Units Ab domen, Left Upper Quadrant insulin regular 1 Units/mL in sodium chloride 0.9% infusion 0-25 Units/hr (0-25 mL/hr), IV, TITRATE, Starting on Wed01/29/23 at 2145, Until 01/31/23 at 1148 Rate Change 01/31/2023 9:56 AM CDT 1.4 Units/hr 1.4 mL/hr Rate Change 01/31/2023 7:24 AM CDT 1.9 Units/hr 1.9 mL/hr Rate Verify 01/31/2023 6:21 AM CDT 2.4 Units/hr 2.4 mL/hr iron sucrose (VENOFER) 100 mg iron/5 mL injection 200 mg 200 mg, IV, ONE TIME ONLY, 1 dose, On Wed02/01/23 at 1600, Routine Given 02/01/2023 4:59 PM CDT 200 mg iron sucrose (VENOFER) 200 mg in sodium chloride 0.9% 100 mL IVPB 200 mg, IV, ONE TIME ONLY, 1 dose, On Wed02/08/23 at 0900, Routine New Bag 02/08/2023 9:24 AM CDT 200 mg 500 mL/hr lactated ringers bolus solution 1,000 mL 1,000 mL, IV, ONE TIME ONLY, 1 dose, On Wed01/29/23 at 2230, at 2,000 mL/hr, Administer over 30 Minutes, Routine New Bag 01/29/2023 10:50 PM CDT 1,000 mL 2000 mL/hr lactated ringers bolus solution 2,000 mL 2,000 mL, IV, ONE TIME ONLY, 1 dose, On Wed01/29/23 at 1845, at 4,000 mL/hr, Administer over 30 Minutes, Routine Bag Switched 01/29/2023 7:06 PM CDT 1,000 mL 4000 mL/hr lactated ringers bolus solution 250 mL 250 mL, IV, ONE TIME ONLY, 1 dose, On 02/06/23 at 1200, at 500 mL/hr, Administer over 30 Minutes, Routine New Bag 02/06/2023 11:51 AM CDT 250 mL 500 mL/hr lactated ringers bolus solution 500 mL 500 mL, IV, ONE TIME ONLY, 1 dose, On Wed01/29/23 at 1630, at 999 mL/hr, Administer over 30 Minutes, Routine New Bag 01/29/2023 5:07 PM CDT 500 mL 999 mL/hr lactated ringers bolus solution 500 mL 500 mL, IV, ONE TIME ONLY, 1 dose, On Wed01/29/23 at 1845, at 999 mL/hr, Administer over 30 Minutes, Routine New Bag 01/29/2023 6:43 PM CDT 500 mL 999 mL/hr lactated ringers bolus solution 500 mL 500 mL, IV, ONE TIME ONLY, 1 dose, On Nurys 02/04/23 at 1545, at 999 mL/hr, Administer over 30 Minutes, Routine Rate Verify 02/04/2023 4:33 PM CDT 20 mL/hr Rate Change 02/04/2023 4:32 PM CDT 20 mL/hr Rate Verify 02/04/2023 4:25 PM CDT 999 mL/hr lactated ringers infusion IV, at 75 mL/hr, CONTINUOUS, Starting on Wed02/01/23 at 0115, Until Wed02/02/23 at 0114, Routine Rate Change 02/01/2023 7:03 PM CDT 75 mL/ hr New Bag 02/01/2023 1:17 AM CDT 150 mL/hr lactated ringers infusion IV, at 75 mL/hr, CONTINUOUS, Starting on Wed02/02/23 at 0130, Until Wed02/02/23 at 1758, Routine Restarted 02/02/2023 12:24 PM CDT 75 mL /hr Rate Verify 02/02/2023 9:12 AM CDT 75 mL/hr Rate Verify 02/02/2023 9:11 AM CDT 75 mL/hr lactated ringers infusion IV, at 125 mL/hr, CONTINUOUS, Starting on Tu02/02/23 at 2315, Until Wed02/03/23 at 2314, Routine Rate Verify 02/03/2023 12:53 PM CDT 125 mL/hr Rate Verify 02/03/2023 2:30 AM CDT 125 mL/hr New Bag 02/03/2023 12:12 AM CDT 125 mL/hr lactated ringers infusion IV, at 75 mL/hr, CONTINUOUS, Starting on 02/06/23 at 1445, Until 02/07/23 at 1444, Routine Rate Change 02/07/2023 5:26 AM CDT 900 mL/hr Continue from Pre-Op 02/07/2023 5:04 AM CDT 75 mL/hr New Bag 02/07/2023 2:35 AM CDT 75 mL/hr lactated ringers infusion IV, at 125 mL/hr, PRE-PROCEDURE CONTINUOUS, Starting on 02/07/23 at 0500, Until 02/07/23 at 0836, Routine, Pre-op New Bag 02/07/2023 4:56 AM CDT 125 mL/hr Lidocaine 4 % topical patch 1 Patch 1 Patch, Topical, DAILY, 3 doses, First dose on 01/30/23 at 1645, Last dose on 02/01/23 at 1700, Routine Applied 02/01/2023 5:25 PM CDT 1 Patch Other (Comment) Applied 01/31/2023 6:05 PM CDT 1 Patch Ba ck, Left Applied 01/30/2023 5:15 PM CDT 1 Patch Ot her (Comment) loperamide (IMODIUM) capsule 2 mg 2 mg, Oral, FOUR TIMES DAILY PRN, Starting on Wed02/03/23 at 1204, Until 02/13/23 at 1542, Diarrhea/Loose Stools, Routine Given 02/03/2023 1:20 PM CDT 2 mg magnesium sulfate in water 2 gram/50 mL (4 %) IVPB 2 Gram 2 Gram, IV, ONE TIME ONLY, 1 dose, On 01/31/23 at 1000, Routine New Bag 01/31/2023 10:18 AM CDT 2 Grams 25 mL/hr magnesium sulfate in water 2 gram/50 mL (4 %) IVPB 2 Gram 2 Gram, IV, ONE TIME ONLY, 1 dose, On 01/31/23 at 1200, Routine Rate Verify 01/31/2023 1:00 PM CDT 25 mL/hr Rate Verify 01/31/2023 12:00 PM CDT 25 mL/hr New Bag 01/31/2023 11:41 AM CDT 2 Grams 25 mL/hr magnesium sulfate in water 2 gram/50 mL (4 %) IVPB 2 Gram 2 Gram, IV, ONE TIME ONLY, 1 dose, On Wed02/01/23 at 0500, Routine New Bag 02/01/2023 5:09 AM CDT 2 Grams 25 mL/hr magnesium sulfate in water 2 gram/50 mL (4 %) IVPB 2 Gram 2 Gram, IV, ONE TIME ONLY, 1 dose, On 02/01/23 at 0500, Routine New Bag 02/01/2023 6:52 AM CDT 2 Grams 25 mL/hr magnesium sulfate in water 4 gram/100 mL IVPB 4 Gram 4 Gram, IV, ONE TIME ONLY, 1 dose, On 01/30/23 at 0930, Routine New Bag 01/30/2023 9:26 AM CDT 4 Grams 25 mL/hr methylergonovine maleate (METHERGINE) 0.2 mg/mL (1 mL) injection 0.2 mg 0.2 mg, IM, EVERY 2 HOURS PRN, 2 doses, Starting on 02/07/23 at 0447, Until 02/13/23 at 1542, Other (See Comment), for excessive bleeding in the immediate period as needed after consultation with resident or attending physician - Maximum of 2 doses, Routine metoclopramide (REGLAN) 5 mg/mL injection 10 mg 10 mg, IV, EVERY 6 HOURS, First dose (after last modification) on 01/30/23 at 0000, Until Discontinued, Routine Given 02/03/2023 12:17 AM CDT 10 mg Given 01/31/2023 6:05 PM CDT 10 mg Given 01/31/2023 12:03 AM CDT 10 mg miSOPROStoL (CYTOTEC) tablet 800 mcg 800 mcg, Rectal, ONE TIME PRN, 1 dose, Starting on 02/07/23 at 0447, Until 02/13/23 at 1542, Other (See Comment), Physician consultation required before administration for appropriate medication selection, Routine modified lanolin (LANOLIN HFA) 100 % topical cream Topical, SEE ADMIN INSTRUCTIONS, Starting on Wed02/07/23 at 0843, Until 02/13/23 at 1542, Routine, Post-op - Floor Given 02/10/2023 9:26 AM CDT 7 Grams Nipple, Bilateral nalbuphine (NUBAIN) injection 2.6 mg 2.6 mg (rounded from 2.5 mg), IV, ONE TIME PRN, 1 dose, Starting on 02/07/23 at 0455, Until 02/13/23 at 1542, Itching, Routine, PACU naloxone (NARCAN) 0.4 mg/mL injection 0.1 mg 0.1 mg, IV, SEE ADMIN INSTRUCTIONS, Starting on Wed01/29/23 at 2137, Until 02/13/23 at 1542, Routine ondansetron (ZOFRAN) 4 mg/2 mL injection 4 mg 4 mg, IV, EVERY 6 HOURS PRN, Starting on Wed01/29/23 at 1625, Until 02/13/23 at 1542, Nausea/Emesis, Routine oxyCODONE (ROXICODONE) tablet 5 mg 5 mg, Oral, EVERY 4 HOURS PRN, Starting on 02/08/23 at 0603, Until 02/13/23 at 1542, Other (See Comment), See admin instructions, Routine, Post-op - Floor Given 02/10/2023 2:35 AM CDT 5 mg Given 02/09/2023 5:05 AM CDT 5 mg oxytocin in sodium chloride 0.9 % (PITOCIN) 20 units in 1,000 mL infusion IV, at 999 mL/hr, CONTINUOUS PRN, Starting on 02/07/23 at 0447, Until 02/13/23 at 1542, Other (See Comment), excessive bleeding in the immediate period, Routine oxytocin in sodium chloride 0.9 % (PITOCIN) 20 units in 1,000 mL infusion IV, at 125 mL/hr, CONTINUOUS, Starting on Wed02/07/23 at 0430, Until 02/13/23 at 1542, Routine New Bag 02/07/2023 5:29 AM CDT oxytocin in sodium chloride 0.9 % (PITOCIN) 20 units in 1,000 mL infusion IV, at 125 mL/hr, CONTINUOUS, Starting on 02/07/23 at 0615, Until [place] 02/07/23 at 1414, Routine, Post-op - Floor New Bag 02/07/2023 9:14 AM CDT 125 mL/hr 125 mL /hr New Bag 02/07/2023 7:18 AM CDT 125 mL/hr 125 mL/hr piperacillin-tazobactam (ZOSYN) 3.375 gram in dextrose (iso-osmotic) 50 mL IVPB 3.375 Gram, IV, EVERY 6 HOURS, First dose on Wed01/29/23 at 1900, Until Discontinued, Routine, Antibiotic Indication: Suspected Sepsis, Unknown Source New Bag 01/30/2023 5:08 AM CDT 3.375 Grams 100 mL/hr New Bag 01/30/2023 12:21 AM CDT 3.375 Grams 100 mL/hr New Bag 01/29/2023 7:43 PM CDT 3.375 Grams 100 mL/hr potassium CHLORIDE 20 mEq/100 mL IVPB 20 mEq 20 mEq, IV, ONE TIME ONLY, 1 dose, On Wed01/31/23 at 0730, Routine Rate Verify 01/31/2023 12:00 PM CDT 20 mL/hr Rate Verify 01/31/2023 11:00 AM CDT 20 mL/hr Rate Verify 01/31/2023 10:00 AM CDT 20 mL/hr potassium CHLORIDE 20 mEq/100 mL IVPB 20 mEq 20 mEq, IV, ONE TIME ONLY, 1 dose, On 01/31/23 at 0930, Routine Rate Verify 01/31/2023 3:00 PM CDT 25 mL/hr Rate Verify 01/31/2023 2:00 PM CDT 25 mL/hr New Bag 01/31/2023 1:19 PM CDT 20 mEq 25 mL/hr potassium CHLORIDE 20 mEq/100 mL IVPB 20 mEq 20 mEq, IV, ONE TIME ONLY, 1 dose, On Wed02/01/23 at 0500, Routine New Bag 02/01/2023 5:12 AM CDT 20 mEq 50 mL/hr potassium PHOSPHATE 30 mmol in sodium chloride 0.9% 260 mL IVPB 30 mmol, IV, ONE TIME ONLY, 1 dose, On 01/30/23 at 0930, Routine Rate Verify 01/30/2023 5:00 PM CDT 49.2 mL/hr Rate Verify 01/30/2023 4:00 PM CDT 49.2 mL/hr Rate Verify 01/30/2023 3:00 PM CDT 49.2 mL/hr potassium PHOSPHATE 30 mmol in sodium chloride 0.9% 260 mL IVPB 30 mmol, IV, ONE TIME ONLY, 1 dose, On 01/31/23 at 1130, Routine New Bag 01/31/2023 1:56 PM CDT 30 mmol 49.2 mL/hr potassium PHOSPHATE 30 mmol in sodium chloride 0.9% 260 mL IVPB 30 mmol, IV, ONE TIME ONLY, 1 dose, On 02/01/23 at 0500, Routine New Bag 02/01/2023 5:10 AM CDT 30 mmol 49.2 mL/hr vit-iron fumarate-fa () 28 mg iron- 800 mcg per tablet 1 Tablet 1 Tablet, Oral, DAILY, First dose on 01/30/23 at 0900, Until Discontinued, Routine Given 02/13/2023 9:09 AM CDT 1 Tablet Given 02/12/2023 8:15 AM CDT 1 Tablet Given 02/11/2023 9:05 AM CDT 1 Tablet prochlorperazine (COMPAZINE) injection 10 mg 10 mg, IV, EVERY 6 HOURS PRN, Starting on Wed02/01/23 at 0839, Until 02/13/23 at 1542, Nausea, Routine Given 02/03/2023 4:00 AM CDT 10 mg prochlorperazine (COMPAZINE) injection 10 mg 10 mg, IV, ONE TIME PRN, 1 dose, Starting on 02/07/23 at 0455, Until 02/13/23 at 1542, Nausea/Emesis, Routine scopolamine (TRANSDERM-SCOP) 1 mg/72 hr transdermal patch 1 Patch 1 Patch, Transdermal, EVERY 72 HOURS, First dose on Wed01/29/23 at 1900, Until Discontinued, Routine Applied 02/07/2023 6:56 PM CDT 1 Patch Ear, Right Applied 02/04/2023 8:59 PM CDT 1 Patch Ea r, Left Applied 02/01/2023 6:58 PM CDT 1 Patch Ea r, Right sennosides-docusate sodium (SENNA-S) 8.6-50 mg per tablet 1 Tablet 1 Tablet, Oral, DAILY AT BEDTIME, First dose on 02/07/23 at 2100, Until Discontinued, Routine, Post-op - Floor Given 02/10/2023 8:01 PM CDT 1 Tab let Given 02/09/2023 10:33 PM CDT 1 Tablet Given 02/08/2023 9:50 PM CDT 1 Tablet simethicone chewable tablet 80 mg 80 mg, Oral, EVERY 6 HOURS PRN, Starting on Wed02/07/23 at 0843, Until 02/13/23 at 1542, Gas, Routine, Post-op - Floor Given 02/09/2023 12:51 AM CDT 80 mg Given 02/08/2023 6:52 PM CDT 80 mg sodium chloride flush injection 5 mL 5 mL, IV, EVERY 12 HOURS (BlD), First dose on 02/07/23 at 0900, Until Discontinued, Routine, Post-op - Floor Given 02/08/2023 9:50 PM CDT 5 mL Given 02/08/2023 9:25 AM CDT 5 mL Given 02/07/2023 8:38 PM CDT 5 mL tranexamic acid (CYKLOKAPRON) 1,000 mg in sodium chloride (iso-osmotic) 100 mL IVPB 1,000 mg, IV, ONE TIME PRN, 1 dose, Starting on 02/07/23 at 0447, Until 02/13/23 at 1542, Other (See Comment), Physician consultation required before administration for appropriate medication selection, Routine vancomycin (VANCOCIN) 1,000 mg in dextrose 5% 200 mL IVPB (PREMIX) 1,000 mg, IV, EVERY 8 HOURS, First dose on Wed01/29/23 at 1930, Until Discontinued, Routine, Antibiotic Indication: Suspected Sepsis, Unknown Source Rate Verify 01/31/2023 4:00 AM CDT 200 mL/hr New Bag 01/31/2023 3:19 AM CDT 1,000 mg 200 mL/hr New Bag 01/30/2023 8:43 PM CDT 1,000 mg 200 mL/hr documented in this encounter Active and Recently Administered Medications Times are shown in CDT. Scheduled Medication Order 02/11/2023 02/12/2023 02/13/2023 acetaminophen (TYLENOL) tablet 650 mg 650 mg, Oral, EVERY 6 HOURS, First dose on 02/08/23 at 0615, Until Discontinued, Routine, Post-op - Floor 0206 (Given - Provider: Diane Machado RN)0905 (Given - Provider: Yadira Hurley RN)1350 (Given - Provider: Yadira Hurley RN)203 (Given - Provider: Marylou Schwartz, MARY) 023 (Given - Provider: Marylou Schwartz RN)0815 (Given - Provider: Aziza Grimm RN)140 (Given - Provider: Aziza Grimm, MARY)2018 (Given - Provider: Shonda Beckford RN) 022 (Given - Provider: Shonda Beckford RN)09 (Given - Provider: Viridiana Wayne RN) dextrose 5 % in water 250 mL flush bag 25 mL 25 mL, IV, SEE ADMIN INSTRUCTIONS, Starting on Wed02/07/23 at 0843, Until 02/13/23 at 1542, Routine, Post-op - Floor dextrose 5% - sodium chloride 0.9% infusion IV, at 40 mL/hr, SEE ADMIN INSTRUCTIONS, Starting on Wed01/29/23 at 2137, Until 02/13/23 at 1542, Routine dextrose 50% (D50) syringe 12.5 Gram 12.5 Gram, IV, SEE ADMIN INSTRUCTIONS, Starting on Wed01/29/23 at 2139, Until 02/13/23 at 1542, Routine dextrose 50% (D50) syringe 25 Gram 25 Gram, IV, SEE ADMIN INSTRUCTIONS, Starting on Wed01/29/23 at 2139, Until 02/13/23 at 1542, Routine docusate sodium (COLACE) capsule 100 mg 100 mg, Oral, TWO TIMES DAILY, First dose on Wed01/29/23 at 2100, Until Discontinued, Routine 09 (Given - Provider: Yadira Hurley RN)2100 (Refused - Provider: Marylou Schwartz RN) 0815 (Given - Provider: Aziza Grimm RN)2019 (Refused - Provider: Shonda Beckford RN) 09 (Given - Provider: Viridiana Wayne, RN) enoxaparin (LOVENOX) injection 40 mg 40 mg, subCUT, EVERY 24 HOURS, First dose on Wed02/08/23 at 0800, Until Discontinued, Routine, Indication: Prophylaxis of VTE 904 (Given - Provider: Yadira Hurley RN) 814 (Given - Provider: Aziza Grimm RN) 908 (Given - Provider: Viridiana Wayne, RN) ferrous sulfate tablet 325 mg 325 mg, Oral, DAILY, First dose on Wed02/07/23 at 0900, Until Discontinued, Routine, Post-op - Floor 904 (Given - Provider: Yadira Hurley RN) 814 (Given - Provider: Aziza Grimm RN) 908 (Given - Provider: Viridiana Wayne RN) glucagon HCL 1 mg/mL injection 1 mg 1 mg, IM, SEE ADMIN INSTRUCTIONS, Starting on Wed01/29/23 at 2139, Until 02/13/23 at 1542, Routine ibuprofen (MOTRIN) tablet 600 mg 600 mg, Oral, EVERY 6 HOURS, First dose on Wed02/08/23 at 1200, Until Discontinued, Routine, Post-op - Floor 0206 (Given - Provider: Diane Machado RN)09 (Given - Provider: Yadira Hurley RN)1350 (Given - Provider: Yadira Hurley RN)2036 (Given - Provider: Marylou Schwartz RN) 023 (Given - Provider: Marylou Schwartz, MARY)08 (Given - Provider: Aziza Grimm, MARY)140 (Given - Provider: Aziza Grimm RN)2018 (Given - Provider: Shonda Beckford, MARY) 022 (Given - Provider: Shonda Beckford RN)09 (Given - Provider: Viridiana Wayne, MARY) insulin glargine-yfgn injection 12 Units 12 Units, subCUT, DAILY AT BEDTIME, First dose (after last modification) on Nurys 02/11/23 at 2100, Until Discontinued, Routine 2229 (Patient/Family Admin - Provider: aMrylou Schwartz, MARY) 2201 (Given - Provider: Shonda Beckford RN) insulin glargine-yfgn injection 8 Units (COMPLETED) 8 Units, subCUT, ONE TIME ONLY, 1 dose, On Wed02/11/23 at 0800, Routine 0900 (Patient/Family Admin - Provider: Yadira Hurley RN - Comment: GP/TS) insulin glargine-yfgn injection 8 Units (COMPLETED) 8 Units, subCUT, ONE TIME ONLY, 1 dose, On Wed02/12/23 at 0730, Routine 0818 (Patient/Family Admin - Provider: Aziza Grimm RN - Comment: administered by pt) insulin lispro (HumaLOG) injection 1 Units (COMPLETED) 1 Units, subCUT, ONE TIME ONLY, 1 dose, On Wed02/11/23 at 0515, Routine 0524 (Given - Provider: Diane Machado RN) insulin lispro (HumaLOG) injection 1 Units (COMPLETED) 1 Units, subCUT, ONE TIME ONLY, 1 dose, On Wed02/11/23 at 2130, Routine 2124 (Patient/Family Admin - Provider: Marylou Schwartz RN - Comment: verified by Porter Lopez RN) insulin lispro (HumaLOG) injection 3 Units (COMPLETED) 3 Units, subCUT, ONE TIME ONLY, 1 dose, On Wed02/11/23 at 1130, Routine 1126 (Patient/Family Admin - Provider: Yadira Hurley, MARY - Comment: BS 339GP/TS) insulin lispro (HumaLOG) injection 3 Units (COMPLETED) 3 Units, subCUT, ONE TIME ONLY, 1 dose, On Wed02/12/23 at 0515, Routine 0507 (Patient/Family Admin - Provider: Marylou Schwartz RN) insulin lispro (HumaLOG) injection 4 Units (COMPLETED) 4 Units, subCUT, ONE TIME ONLY, 1 dose, On Nurys 02/11/23 at 0230, Routine 0236 (Given - Provider: Diane Machado RN) insulin lispro (HumaLOG) injection 4 Units (COMPLETED) 4 Units, subCUT, ONE TIME ONLY, 1 dose, On Nurys 02/11/23 at 0515, Routine 0524 (Given - Provider: Diane Machado RN) insulin lispro (HumaLOG) variable dose injection subCUT, THREE TIMES DAILY WITH MEALS, First dose (after last modification) on Wed02/10/23 at 0800, Until Discontinued, Routine 0948 (Patient/Family Admin - Provider: Yadira Hurley RN - Comment: BS 256GP/TS)1342 (Patient/Family Admin - Provider: Yadira Hurley, RN - Comment: BS 307GP/TS)1831 (Patient/Family Admin - Provider: Yadira Hurley, RN - Comment: BS 181GP/HR) 0937 (Given - Provider: Aziza Grimm RN - Comment: breakfast 53 grams- 5 unitsBG 252- 4 unitsVerified with Marissa Giron RN)1408 (Given - Provider: Aziza Grimm RN - Comment: 54 carbs- 5 uBG 177 - 2 uverified with KK)2014 (Given - Provider: Shonda Beckford RN - Comment: 50gms carbs- 5 unitsBS 202- 2 units) 09 (Given - Provider: Viridiana Wayne RN - Comment: POC before breakfast: 1735 units (breakfast 54g)2 additional units = 7 units total)1200 (Due) modified lanolin (LANOLIN HFA) 100 % topical cream Topical, SEE ADMIN INSTRUCTIONS, Starting on Wed02/07/23 at 0843, Until 02/13/23 at 1542, Routine, Post-op - Floor naloxone (NARCAN) 0.4 mg/mL injection 0.1 mg 0.1 mg, IV, SEE ADMIN INSTRUCTIONS, Starting on Wed01/29/23 at 2137, Until 02/13/23 at 1542, Routine vit-iron fumarate-fa () 28 mg iron- 800 mcg per tablet 1 Tablet 1 Tablet, Oral, DAILY, First dose on Wed01/30/23 at 0900, Until Discontinued, Routine 0905 (Given - Provider: Yadira Hurley RN) 0815 (Given - Provider: Aziza Grimm RN) 0909 (Given - Provider: Viridiana Wayne RN) scopolamine (TRANSDERM-SCOP) 1 mg/72 hr transdermal patch 1 Patch 1 Patch, Transdermal, EVERY 72 HOURS, First dose on Wed01/29/23 at 1900, Until Discontinued, Routine sennosides-docusate sodium (SENNA-S) 8.6-50 mg per tablet 1 Tablet 1 Tablet, Oral, DAILY AT BEDTIME, First dose on Wed02/07/23 at 2100, Until Discontinued, Routine, Post-op - Floor 2100 (Refused - Provider: Marylou Schwartz, MARY) 2018 (Refused - Provider: Shonda Beckford RN) Continuous Medication Order 02/11/2023 02/12/2023 02/13/2023 dextrose 5% - lactated ringers infusion IV, at 200 mL/hr, CONTINUOUS, Starting on Wed01/29/23 at 2145, Until 01/30/23 at 2144, Routine dextrose 5% - lactated ringers infusion IV, at 50 mL/hr, CONTINUOUS, Starting on 02/06/23 at 1715, Until Wed02/07/23 at 1714, Routine lactated ringers infusion IV, at 75 mL/hr, CONTINUOUS, Starting on Wed02/01/23 at 0115, Until Wed02/02/23 at 0114, Routine lactated ringers infusion IV, at 125 mL/hr, CONTINUOUS, Starting on Wed02/02/23 at 2315, Until Wed02/03/23 at 2314, Routine oxytocin in sodium chloride 0.9 % (PITOCIN) 20 units in 1,000 mL infusion IV, at 125 mL/hr, CONTINUOUS, Starting on Wed02/07/23 at 0430, Until 02/13/23 at 1542, Routine PRN Medication Order 02/11/2023 02/12/2023 02/13/2023 calcium as carbonate (TUMS) 500 mg (200 mg elemental) chewable tablet 400 mg 400 mg, Oral, EVERY 6 HOURS PRN, Starting on Wed01/29/23 at 1911, Until 02/13/23 at 1542, Indigestion, Routine carboprost tromethamine (HEMABATE) 250 mcg/mL injection 1 mL 1 mL (250 mcg), IM, EVERY 15 MINUTES PRN, 8 doses, Starting on Wed02/07/23 at 0447, Until 02/13/23 at 1542, Other (See Comment), for excessive bleeding in the immediate period as needed after consultation with resident or attending physician - Maximum of 8 doses, Routine famotidine (PEPCID) tablet 20 mg(Linked Group 1) 20 mg, Oral, TWO TIMES DAILY PRN, Starting on Wed01/29/23 at 1911, Until 02/13/23 at 1542, Dyspepsia, Indigestion, Routine famotidine PF (PEPCID) 20 mg/2 mL injection 20 mg(Linked Group 1) 20 mg, IV, TWO TIMES DAILY PRN, Starting on Wed01/29/23 at 1911, Until 02/13/23 at 1542, Dyspepsia, Indigestion, Routine haloperidol lactate (HALDOL) injection 0.5 mg 0.5 mg, IV, ONE TIME PRN, 1 dose, Starting on 02/07/23 at 0455, Until 02/13/23 at 1542, Other (See Comment), N/V in OBRR, Routine hydrocortisone (PROCTOZONE-HC) 2.5 % rectal cream Rectal, TWO TIMES DAILY PRN, Starting on 02/07/23 at 0843, Until 02/13/23 at 1542, Hemorrhoids, Routine, Post-op - Floor loperamide (IMODIUM) capsule 2 mg 2 mg, Oral, FOUR TIMES DAILY PRN, Starting on Wed02/03/23 at 1204, Until 02/13/23 at 1542, Diarrhea/Loose Stools, Routine magnesium hydroxide (MILK OF MAGNESIA) oral suspension 30 mL 30 mL, Oral, NIGHTLY PRN, Starting on 02/07/23 at 0843, Until 02/13/23 at 1542, Constipation, Routine, Post-op - Floor methylergonovine maleate (METHERGINE) 0.2 mg/mL (1 mL) injection 0.2 mg 0.2 mg, IM, EVERY 2 HOURS PRN, 2 doses, Starting on 02/07/23 at 0447, Until 02/13/23 at 1542, Other (See Comment), for excessive bleeding in the immediate period as needed after consultation with resident or attending physician - Maximum of 2 doses, Routine metoclopramide (REGLAN) 5 mg/mL injection 10 mg 10 mg, IV, EVERY 6 HOURS PRN, Starting on 02/08/23 at 0603, Until 02/13/23 at 1542, Nausea/Emesis, Routine, Post-op - Floor miSOPROStoL (CYTOTEC) tablet 800 mcg 800 mcg, Rectal, ONE TIME PRN, 1 dose, Starting on Wed02/07/23 at 0447, Until 02/13/23 at 1542, Other (See Comment), Physician consultation required before administration for appropriate medication selection, Routine nalbuphine (NUBAIN) injection 2.6 mg 2.6 mg (rounded from 2.5 mg), IV, ONE TIME PRN, 1 dose, Starting on Wed02/07/23 at 0455, Until 02/13/23 at 1542, Itching, Routine, PACU ondansetron (ZOFRAN ODT) tablet 4 mg 4 mg, Oral, EVERY 6 HOURS PRN, Starting on Wed02/08/23 at 0603, Until 02/13/23 at 1542, Nausea/Emesis, Routine, Post-op - Floor ondansetron (ZOFRAN) 4 mg/2 mL injection 4 mg 4 mg, IV, EVERY 6 HOURS PRN, Starting on Wed01/29/23 at 1625, Until 02/13/23 at 1542, Nausea/Emesis, Routine oxyCODONE (ROXICODONE) tablet 5 mg 5 mg, Oral, EVERY 4 HOURS PRN, Starting on Wed02/08/23 at 0603, Until 02/13/23 at 1542, Other (See Comment), See admin instructions, Routine, Post-op - Floor oxyCODONE (ROXICODONE) tablet 5 mg 5 mg, Oral, EVERY 4 HOURS PRN, Starting on Wed02/08/23 at 0603, Until 02/13/23 at 1542, Other (See Comment), See admin instructions, Routine, Post-op - Floor oxytocin in sodium chloride 0.9 % (PITOCIN) 20 units in 1,000 mL infusion IV, at 999 mL/hr, CONTINUOUS PRN, Starting on Wed02/07/23 at 0447, Until 02/13/23 at 1542, Other (See Comment), excessive bleeding in the immediate period, Routine prochlorperazine (COMPAZINE) injection 10 mg 10 mg, IV, EVERY 6 HOURS PRN, Starting on Wed02/01/23 at 0839, Until 02/13/23 at 1542, Nausea, Routine prochlorperazine (COMPAZINE) injection 10 mg 10 mg, IV, ONE TIME PRN, 1 dose, Starting on 02/07/23 at 0455, Until 02/13/23 at 1542, Nausea/Emesis, Routine simethicone chewable tablet 80 mg 80 mg, Oral, EVERY 6 HOURS PRN, Starting on 02/07/23 at 0843, Until 02/13/23 at 1542, Gas, Routine, Post-op - Floor tranexamic acid (CYKLOKAPRON) 1,000 mg in sodium chloride (iso-osmotic) 100 mL IVPB 1,000 mg, IV, ONE TIME PRN, 1 dose, Starting on 02/07/23 at 0447, Until 02/13/23 at 1542, Other (See Comment), Physician consultation required before administration for appropriate medication selection, Routine witch David (TUCKS) 50 % topical pads 1 Each 1 Each, Topical, DAILY PRN, Starting on 02/07/23 at 0843, Until 02/13/23 at 1542, Discomfort, Routine, Post-op - Floor Linked Groups Order Group 1: famotidine (PEPCID) tablet 20 mgJump to med 20 mg, Oral, TWO TIMES DAILY PRN, Starting on Wed01/29/23 at 1911, Until 02/13/23 at 1542, Dyspepsia, Indigestion, Routine Or famotidine PF (PEPCID) 20 mg/2 mL injection 20 mgJump to med 20 mg, IV, TWO TIMES DAILY PRN, Starting on Wed01/29/23 at 1911, Until 02/13/23 at 1542, Dyspepsia, Indigestion, Routine documented in this encounter Additional Health Concerns Infection Onset Date Last Indicated Resolved Time R/O COVID-19 01/29/2023 01/29/2023 01/29/2023 7:57 PM CDT documented as of this encounter
--- OUTSIDE RECORDS SUMMARY | 2024-05-10 19:00 | XMS_ITS | Encounter Summary ---
Author Organization [facility] Address [address] [place] [address] Care Team Providers Care Stone Sandblaster Name Role Phone Unavailable Primary Care Provider Unavailabl e Reason for Visit * Reason Onset Date Comments Med Refill 02/11/2023 Encounter Details Date Type Department Care Team (Late st Contact Info) Description 02/11/[address] [facility] Maternal and Medicine - [facility] [address] [facility] [address] [place] [address] Zbigniew Marino MD [address] [facility] [address] [place] [address] Med Refill Social History Tobacco Use Types Packs/Day [...] encounter Miscellaneous Notes * Telephone Encounter - Kathryn Reyes RN - 02/11/2023 7:59 AM CDT Reached out to [employer] product support representative due to patient's concerns of not receiving insulin pump supplies. Brine Supervisor responds with the following email: I show that [employer] has been trying to reach her since October to place a supply order. Her last ordershipped in August 2022. I also [place], not [place]. The easiest way to get supplies would be for her to call [facility], set up and account and place an order. [employer] will need to speak with her and get consent to ship. Their number is [phone]. If [place] and [facility] can???t help her, [employer] would be another option. Their numberis [phone]. Passed this information along to Dr. Marino. Copying in chart as well for telephone numbers for patient to reach out to mail order service and set up her continue care order. Kathryn Reyes RN, BSN, [facility] Certified Diabetes Care & Edu Specialist [facility] Maternal Medicine [phone] documented in this encounter Plan of Treatment Not on file documented as of this encounter Visit Diagnoses Not on filedocumented in this encounter
--- OUTSIDE RECORDS SUMMARY | 2024-05-10 19:01 | XMS_ITS | Encounter Summary ---
Author Organization [facility] Address [address] [place] [address] Care Team Providers Care Economics Faculty Member Name Role Phone Unavailable Primary Care Provider Unavailabl e Reason for Visit * Reason Onset Date Comments Reschedule Appointment 10/28/2022 Encounter Details Date Type Department Care Team (Late st Contact Info) Description 10/28/2022 Telephone [facility] Maternal and Medicine - [facility] [address] [facility] [address] [place] [address] Zbigniew Marino MD [address] [address] [place] [address] Reschedule Appointment Social History Tobacco Use Types Packs/Day Years Used Date Smoking Tobacco: Never Alcohol Use Standard Drinks/Week Comments Not Currently 0 (1 standard drink = 0.6 oz pur e alcohol) Comments Yes Sex and Gender Information Value Date Recorded Sex Assigned at Not on file Gender Identity Not on file Sexual Orientation Not on file documented as of this encounter Miscellaneous Notes * Telephone Encounter - Juany Tom - 10/28/2022 12:56 PM CDT Called patient to change her upcoming appointment that she has scheduled for 11/17. She is a returning patient in an initial spot. She can reschedule with Sara MORRISON. We also do not have any provider in the office that day. documented in this encounter Plan of Treatment Not on file documented as of this encounter Visit Diagnoses Not on filedocumented in this encounter
--- OUTSIDE RECORDS SUMMARY | 2024-05-10 19:01 | XMS_ITS | Encounter Summary ---
Author Organization [facility] Address [address] [place] [address] Care Team Providers Care School Superintendent Name Role Phone Unavailable Primary Care Provider Unavailabl e Reason for Referral * Eval and Treat (Routine) - Closed Specialty Diagnoses / Procedures Referred By Rachael frey Referred To Contact Gastroenterology Diagnoses Supervision of high risk in second trimester 27 weeks gestation of Type 1 diabetes mellitus without complication Procedures TN OFFICE/OUTPATIENT ESTABLISHED MOD MDM 30-39 MIN TN OFFICE/OUTPATIENT NEW MODERATE MDM 45-59 MINUTES Kelli Neal MD [address] [place] [address] Dorian Hilton MD [address] [place] [address] Referral ID Status Reason Start Date Expiration Date V isits Requested Visits Authorized [id number] Closed Ordering Dept to Review 12/09/2022 12/09/2023 1 1 * Radiology Services (Routine) - Closed Specialty Diagnoses / Procedures Referred By Rachael frey Referred To Contact Diagnoses Supervision of high risk in second trimester 27 weeks gestation of Type 1 diabetes mellitus without complication Procedures US OB LIMITED + NST TN NONSTRESS TEST CHG US UTERUS LIMITED 1/> FETUSES Kelli Neal MD [address] [place] [address] Referral ID Status Reason Start Date Expiration Date Visits Re quested Visits Authorized [id number] Closed 12/10/2022 01/30/2023 1 1 Reason for Visit * Reason Comments Follow Up Encounter Details Date Type Department Care Team (Late st Contact Info) Description 12/09/2022 1:30 PM CDT visit [facility] Maternal and Medicine - [facility] [place] [facility] [address] [place] [address] Kelli Nael MD [address] [place] [address] Supervision of high risk in second trimester (Primary Dx); 27 weeks gestation of ; Type 1 diabetes mellitus without complication Social History Tobacco Use Types Packs/Day Years [...] Sign Reading Time Taken Comments Blood Pressure 100/68 12/09/2022 1:45 PM CDT Pulse 97 12/09/2022 1:45 PM CDT Temperature - - Respiratory Rate - - Oxygen Saturation 98% 12/09/2022 1:45 PM CDT Inhaled Oxygen Concentration - - Weight 72.1 kg (159 lb) 12/09/2022 1:45 PM CDT Height - - Body Mass Index 29.08 08/31/2022 8:52 AM CDT documented in this encounter Progress Notes * Kelli Neal MD - 12/09/2022 1:30 PM CDT Images from the original note were not included. [facility] Maternal Medicine Follow-Up Consultation Karinasa Fuhcs [id number] 27 y.o. Chief Complaint: complicated by: T1DM, improving control High risk 27w1d RPL Previous Primary OB: Dr. Velazquez HPI: Karina Fuchs is a 27 y.o. at 27w1d seen today in follow up due to the above concerns. T1DM: Karina has had improved control this This is her first follow up today. She's had her eye exam. Her A1c - scanned into Media is most recently 5.6%. Her 24 hour U pro was 407. Gastroparesis- has not had any net weight gain Has lost weight this entire time. Having nausea intermittently - 1-2 x weekly where she vomits multiple times that day- generally undigested food followed by stomach acid, Then her appetite diminishes. She has been taking reglan. Having daily BM No abdominal pain. : She denies vaginal bleeding, contractions and leakage of fluid. She denies headache, blurry vision, RUQ/epigastric pain, NV She reports adequate movement. Review of Systems ROS:As Per HPI. Denies nausea, vomiting, chest pain, shortness of breath, headache, or vision symptoms. Denies unintended changes in weight. Denies abdominal pain or changes in bowel or bladder habits. All other systems negative as they relate to the chief complaint. Physical Exam BP 100/68 (BP Location: Right arm, Patient Position (BP): Sitting, BP Cuff Size: Adult) Pulse 97 Wt 72.1 kg (159 lb) SpO2 98% BMI 29.08 kg/m?? General: appearance: alert, in no distress Skin: warm and dry, intact. Eyes: sclera non icteric, normal ocular movements. Lungs: normal respiratory effort, negative for coughing or wheezing Heart: normal rate and normal peripheral perfusion Abdomen: Non-distended. Gravid Extremities: No cyanosis. No edema beyond what is expected at this gestation. Psychiatric: Appropriate mood and affect Obstetric History OB History Para Term AB Living 5 1 1 3 1 SAB IAB Ectopic Multiple Live Births 3 # Outcome Date GA Lbr Chuck/2nd Weight Sex Delivery Anes PTL Lv 5 Current 4 2020 6w0d 3 SAB 2019 6w0d 2 SAB 2019 6w0d 1 Term 2017 37w0d 3147 g (6 lb 15 oz) F CS-LTranv Comments: DKA admits Labs Reviewed No results found for: WBC , MANUALWBC , HGB , HGBPOC , HCT , HCTPOC , PLT , MCV No results found for: NA , K , CL , CO2 , CA , BUN , CREAT , GLUCOSE , TOTALPROTEIN , ALBUMIN , BILITOTAL , ALKPHOS , AST , ALT , ANIONGAP , BCRATIO No results found for: RUBELLAIGG , RUBELLAIGM , RUBELLAIN No results found for: HIV1X2 , [id number] , HIVAB , HIV2AB , HIV1WB , HIV2WB No results found for: HEPAIGGM , HEPAIGG , HEPAIGM , HEPATITIS , HEPBSIGM , HEPBSAG , HEPBSAB , HEPBEAB , HEPBEAG , HEPBDNAQN , HEPCAB , HEPATITISC No results found for: ABORH , ABOGROUP , FETALABORH , RHTYPE No results found for: PROTEINUR No results found for: CREAT , CREATCLEAR , [id number] , GFR Imaging Results for orders placed during the hospital encounter of 11/18/22 OB FOLLOW UP PER FETUS Impression Screening Maternal Medicine Echocardiogram A screening echocardiogram was performed today secondary to T1DM. This reveals appropriate situs, cardiac size, and apical position. Atria and ventricles appear normal in size and shape. Normal crossing of the outflow tracts noted. The cardiac septum appears intact. There is right to left flow through the foramen ovale. The ductal and aortic arches appear to be normal. The valvular flow appears to be appropriate. Normal rhythm on m-mode. Comments: The ultrasound findings and limitations in the detection of cardiac defects as well as normal cardiac anatomy were shared with your patient. For example, echocardiogram may not be able to detect all abnormalities such as very small ventricular septal defects, subtle valve abnormalities or coarctation of the aorta, nor can it predict persistence of structures such as patent foramen ovale or patent ductus arteriosus. All questions were addressed. Impression: Rodriguez viable intrauterine at 24w 1d. Estimated weight is 770 g (82%ile) with abdominal circumference at the 80%ile. Amniotic fluid volume is normal. No major malformations identified within the limitations of ultrasound. Unremarkable screening echocardiogram. Recommendations: growth evaluation in 4 weeks. Thank you for inviting us to participate in your patient's care Medications Current Outpatient Medications Medication Sig Dispense Refill insulin aspart U-100 (NovoLOG U-100 Insulin aspart) 100 unit/mL vial Inject up to 100U per day via insulin pump 30 mL 8 vit,calc76/iron/folic (PNV 29-1 ORAL) Take by mouth. [...] user. Assessment and Plan 27 y.o. at 27w1d with complicated by Suboptimally controlled T1DM Disposition - Transferring care to Dr. Nicole - Follow up with MFM in 4 weeks 1. Concerns Suspected anomalies: None, Echo normal Estimated weight: 11/18 24w 1d.Estimated weight is 770 g (82%ile) with abdominal circumference at the 80%ile. Recommended follow up sonograms: -Growth sonograms at 4 week intervals in the 3rd trimester Recommended testing: -Twice weekly testing starting at 32 weeks Delivery planning -Planning for delivery at [facility]- Transfer to Dr. Jared Nicole --> labs scanned into media did notsee Type and screen was ordered today (RI/HIV NR/ RPR NR/ HC and HB negative/ UDS negative, PAP negative 08/23, H/H and Plts 354) 2. T1DM, A1c most recently 5.6% Assessment: Improving control, has mild proteinuria with 407mg/24 hours Plan: -Your patient was previously counseled about the maternal risks of diabetes in including but not limited to labor dystocia, increased risk of c- section, infection, preeclampsia and abruption -She was also counseled about the risks of diabetes in including but not limited tocongenital anomalies (with heart being the most common), IUGR and conversly macrosomia, shoulder dystocia hypoglycemia, and intrauterine . - Today, no changes to insulin - see CDE note - Continue close monitoring with our office, weekly - Sonographic monitoring above 3. Probable gastroparesis Assessment: Uncontrolled, appears to be cycling with it Plan: - Reglan with meals - RD consultation, recommend dietary supplementation today - this can become a major issue in the late 3rd T - Consultation with GI, Dr. Lewis Thank you for the opportunity to participate in the care of this patient. A copy of this note was sent to the referring physician. Complexity of medical decision making: Moderate due [...] record, Referring and communication with other health manager medicare marketing (not separately reported), Independently interpreting results and communicating results to the patient/family/caregiver (not separately reported), and Care coordination (not separately reported). Kelli Neal MD [facility] Maternal Medicine documented in this encounter Plan of Treatment Scheduled Referrals Name Type Priority Associated Diagnoses Order Schedule AMB REFERRAL TO GASTROENTEROLOGY Outpatient Referral Routine Supervision of high risk in second trimester 27 weeks gestation of Type 1 diabetes mellitus without complication Ordered: 12/09/2022 documented as of this encounter Results * US OB LIMITED + NST (01/25/2023 10:28 AM CDT) Anatomical Region Laterality Modality Pelvis Ultrasound 01/25/2023 3:55 PM CDT Narrative 01/25/2023 1:11 PM CDT MODIFIED [facility] STUDY ----- Pat. Name: KARINA FUCHS Study Date: 01/25/2023 3:55pm Pat. NO: [id number] Referring ??: PHILOMENA VELAZQUEZ MD Site: [place] Diet Aide: : 1995 Age: 27 ----- INDICATION ----- Pre-existing Type 1 Diabetes Mellitus Obesity, Other Maternal Care for Low Transverse Scar from Previous Delivery (Previous ) CODING ----- Diagnoses ? Z3A.33: Weeks of gestation ?O34.211: Maternal care for low transverse scar from previous delivery ?E66.8: Other obesity ?O24.013: Pre-existing type 1 diabetes mellitus, in Procedures ?09400: NST/ monitoring. 1 ?36346: Ultrasound, uterus, real time with image documentation, limited one or more fetuses. 1 ?82360: NST/ monitoring ?94438: Limited 1 or more - CLARA, FHR, position (modifier 59 for MBPP) HISTORY ----- OB History ? 5. Para 1 ?T1A3L1 MATERNAL ASSESSMENT ----- Physical Exam ? Weight 74 kg. BMI 30.99 kg/m??. Blood pressure 109/64 mmHg. Heart rate 83 bpm METHOD ----- EFM, Transabdominal ultrasound examination. View: Good view ----- Rodriguez . Number of fetuses: 1 DATING ----- Cycle: regular cycle, regular cycle Prior assessment by: Outside US GA by prior assessment 33 w + 6 d AARTI by prior assessment: 03/09/2023 Method of dating: Restore dating from previous exam Assigned: based on stated AARTI, selected on 09/17/2022 Assigned GA 33 w + 6 d Assigned AARTI: 03/09/2023 GENERAL EVALUATION ----- Cardiac activity present. Presentation: cephalic NON STRESS TEST ----- NST interpretation: reactive. Test duration 40 min. Baseline FHR 135 bpm. Baseline variability: moderate. Accelerations: Present. Decelerations: Variable. Uterine activity: absent AMNIOTIC FLUID ASSESSMENT ----- Amount of AF: normal amount MVP 8.3 cm. CLARA 17.4 cm. Q1 8.3 cm, Q2 1.3 cm, Q3 4.1 cm, Q4 3.7 cm COMMENT ----- Nurses Notes: Patient reports positive movement and no bleeding, leaking of fluid or rell. Patient scheduled twice weekly. [facility] specialist, Dr. Jenkins, reviewed findings prior to discharge. IMPRESSION ----- Impression 1. Live IUP at 33w 6d. 2. Normal amniotic fluid (DVP 8.3 cm, CLARA. 17.4 cm). 3. Reactive NST/Reassuring testing. Variables present with normal fluid and wandering baseline. Recommendation -Continue testing as scheduled. Thank you for inviting us to participate in your patient's care. ADDENDUM ----- Re-trigger order Procedure Note Charisma Jenkins MD - 01/30/2023 MODIFIED BPP STUDY ----- Pat. Name:Harlan FUCHS Date:01/25/2023 3:55pm Pat. NO: [id number] MD:PHILOMENA VELAZQUEZ [facility]1995Age:27 ----- INDICATION ----- Pre-existing Type 1 Diabetes Mellitus Obesity, Other Maternal Care for Low Transverse Scar from Previous Delivery (Previous ) CODING ----- Diagnoses Z3A.33: Weeks of gestation O34.211: Maternal care for low transverse scarfrom previous delivery E66.8: Other obesity O24.013: Pre-existing type 1 diabetes mellitus, inpregnancy Procedures 20709: NST/ monitoring. 1 16676: Ultrasound, uterus, real time withimage documentation, limited one or more fetuses. 1 23469: NST/ monitoring 45758: Limited 1 or more - CLARA, FHR, position(modifier 59 for MBPP) HISTORY ----- OB History 5. Para 1 T1A3L1 MATERNAL ASSESSMENT ----- Physical Exam Weight 74 kg. BMI 30.99 kg/m??. Blood /64 mmHg. Heart rate 83 bpm METHOD ----- EFM, Transabdominal ultrasound examination. View: Good view ----- Rodriguez . Number of fetuses: 1 DATING ----- Cycle:regular cycle, regular cycle Prior assessment by:Outside US GA by prior [id number] w + 6 d AARTI by prior assessment:03/09/2023 Method of dating:Restore dating from previous exam Assigned:based on stated AARTI, selected on 09/17/2022 Assigned GA33 w + 6 d Assigned AARTI:03/09/2023 GENERAL EVALUATION ----- Cardiac activity present. Presentation: cephalic NON STRESS TEST ----- NST interpretation: reactive. Test duration 40 min. Baseline FHR 135 bpm.Baseline variability: moderate. Accelerations: Present. Decelerations: Variable. Uterine activity: absent AMNIOTIC FLUID ASSESSMENT ----- Amount of AF: normal amount MVP 8.3 cm. CLARA 17.4 cm. Q1 8.3 cm, Q2 1.3 cm, Q3 4.1 cm, Q4 3.7 cm COMMENT ----- Nurses Notes: Patient reports positive movement and no bleeding,leaking of fluid or rell. Patient scheduled twice weekly. M specialist, Dr. Jenkins, reviewed findings prior todischarge. IMPRESSION ----- Impression 1. Live IUP at 33w 6d. 2. Normal amniotic fluid (DVP 8.3 cm, CLARA. 17.4 cm). 3. Reactive NST/Reassuring testing. Variables present withnormal fluid and wandering baseline. Recommendation -Continue testing as scheduled. Thank you for inviting us to participate in your patient's care. ADDENDUM ----- Re-trigger order Kelli Neal MD ORDERABLES documented in this encounter Visit Diagnoses Diagnosis Supervision of high risk in second trimester- Primary Unspecified high-risk 27 weeks gestation of state, incidental Type 1 diabetes mellitus without complication Type I (juvenile type) diabetes mellitus without mention of complication, not stated as uncontrolled Supervision of high risk in second trimester Unspecified high-risk 27 weeks gestation of state, incidental Type 1 diabetes mellitus without complication Type I (juvenile type) diabetes mellitus without mention of complication, not stated as uncontrolled documented in this encounter
--- OUTSIDE RECORDS SUMMARY | 2024-05-10 19:01 | XMS_ITS | Encounter Summary ---
Author Organization [facility] Address [address] [place] [address] Care Team Providers Care Dog And Cat Food Cook Name Role Phone Unavailable Primary Care Provider Unavailabl e Encounter Details Date Type Department Care Team (Late st Contact Info) Description 01/27/2023 Orders Only [facility] Maternal and Medicine - [facility] [address] [place] [address] Delia Stoddard MD NO ADDRESS ON FILE Pre-existing type 1 diabetes mellitus in in third trimester (Primary Dx) Social History Tobacco [...] Diagnosis Pre-existing type 1 diabetes mellitus in in third trimester- Primary Diabetes mellitus, antepartum documented in this encounter
--- OUTSIDE RECORDS SUMMARY | 2024-05-10 19:01 | XMS_ITS | Encounter Summary ---
Author Organization [facility] Address [address] [place] [address] Care Team Providers Care Center Aisle Cashier Name Role Phone Unavailable Primary Care Provider Unavailabl e Reason for Visit * Reason Onset Date Comments Medication Refill 09/17/2022 Encounter Details Date Type Department Care Team (Late st Contact Info) Description 09/17/2022 Refill [facility] [place] [address] [place] [address] Ria Mesa MD [address] [place] [address] Social History Tobacco Use Types Packs/Day Years [...] suspected to have Coronavirus/COVID-19? No / Unsure 08/31/2022 8:42 AM CDT documented as of this encounter Plan of Treatment Not on file documented as of this encounter Visit Diagnoses Not on filedocumented in this encounter
--- OUTSIDE RECORDS SUMMARY | 2024-05-10 19:01 | XMS_ITS | Encounter Summary ---
Author Organization [facility] Address [address] [place] [address] Care Team Providers Care Senior Research Manager Name Role Phone Unavailable Primary Care Provider Unavailabl e Reason for Visit * Reason Comments Diabetes Encounter Details Date Type Department Care Team (Late st Contact Info) Description 12/09/2022 Chart Note [facility] Maternal and Medicine - [facility] [address] [address] [place] [address] Kelli Neal MD [address] [facility] [address] [address] Diabetes Social History Tobacco Use [...] Progress Notes * Roxanna Rodrigues RN - 12/09/2022 1:18 PM CDT Images from the original note were not included. [facility] Maternal Medicine Diabetes Log Review Gestational age: 27w1d Type of DM: DM1 Current regimen: Humalog via Tandem insulin pump + Dexcom CGM Comments: Pump and CGM data reviewed with Dr. Neal during appt today. Pt is currently in Control IQ and uses sleep mode overnights. Average daily glucose per CGM is 138.Average TDD is 30.71 units (72% basal, 28% bolus). -Automatic boluses from pump (seen as droplet symbols on pump/CGM report) -Elevations noted after some meals when pt does not enter carbs and just allows pump to auto bolus for her. No other trends noted Recommendations: -Encourage pt to use bolus calculator before every meal and snack -Send logs weekly and prn INSULIN PUMP Control IQ ON Control IQ ON Control IQ ON Control IQ ON Control IQ ON BASAL RATES TIME Current 10/08 11/19 12/02 12/09 2029-1410 0.9 0.85 0.95 0.90 0.90 4343-2934 1.2 1.25 1.40 1.40 1.40 5164-9027 0.8 0.80 0.90 0.90 0.90 1405-1948 0.9 0.85 0.95 0.85 0.85 CARB RATIO TIME Current 10/08 11/19 12/02 12/09 9205-5192 8 8 6 5 5 6086-9141 8 8 6 5 5 5552-1907 8 8 6 5 5 2822-0131 8 8 6 6 6 SENSITIVITY TIME Current 10/08 11/19 12/09 2138-2877 30 45 30 30 TARGET TIME TARGET RANGE 3619-2214 110-110 Roxanna Rodrigues, MARY Certified Diabetes Care & Edu Specialist [facility] Maternal Medicine MFM Attending Addendum Logs personally reviewed. CGM reviewed Agree with above. Kelli Neal MD FACOG FACS Maternal Medicine 12/09/2022 documented in this encounter Plan of Treatment Not on file documented as of this encounter Visit Diagnoses Not on filedocumented in this encounter
--- OUTSIDE RECORDS SUMMARY | 2024-05-10 19:01 | XMS_ITS | Encounter Summary ---
Author Organization [facility] Address [address] [place] [address] Care Team Providers Care Marketing Team Lead Name Role Phone Unavailable Primary Care Provider Unavailabl e Reason for Referral * Radiology Services (Routine) - Closed Specialty Diagnoses / Procedures Referred By Rachael frey Referred To Contact Radiology Diagnoses Pre-existing type 1 diabetes mellitus in in third trimester Procedures US OB FOLLOW UP PER FETUS Merari Zaragoza NP [address] [facility] [place] [address] [facility] [address] [place] [address] Referral ID Status Reason Start Date Expiration Date Visits Re quested Visits Authorized [id number] Closed 01/06/2023 02/06/2024 1 1 Reason for Visit * Radiology Services (Routine) - Closed Specialty Diagnoses / Procedures Referred By Rachael frey Referred To Contact Radiology Diagnoses Pre-existing type 1 diabetes mellitus in in third trimester Procedures US OB FOLLOW UP PER FETUS Merari Zaragoza, TAMIKO [address] [facility] [place] [address] [facility] [address] [place] [address] Referral ID Status Reason Start Date Expiration Date Visits Re quested Visits Authorized [id number] Closed 01/06/2023 02/06/2024 1 1 Encounter Details Date Type Department Care Team (Latest Contact Info) Description 01/21/2023 3:00 PM CDT - 01/21/2023 11:59 PM CDT Hospital Encounter [facility] [place] [address] [place] [id number] Estefani Merari, 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 120 Tablet 4 08/31/2022 Insulin Syringe-Needle U-100 0.3 mL 31 gauge x 5/16 Syringe 1 Syringe. 01/27/2023 documented as of this encounter Plan of Treatment Not on file documented as of this encounter Procedures Procedure Name Priority Date/Time Associated Diagnosis Comments US OB FOLLOW UP PER FETUS Routine 01/21/2023 3:55 PM CDT Pre-existing type 1 diabetes mellitus in in third trimester documented in this encounter Results * US OB FOLLOW UP PER FETUS (01/21/2023 3:55 PM CDT) Anatomical Region Laterality Modality Pelvis Ultrasound 01/21/2023 3:35 PM CDT Narrative 01/21/2023 3:59 PM CDT STL FOLLOW UP ----- Pat. Name: KARINA FUCHS Study Date: 01/21/2023 3:35pm Pat. NO: [id number] Referring ??MD: PHILOMENA MOORE MD Site: [facility] [employer] Operator: Magdalena Wade RDMS : 1995 Age: 27 ----- INDICATION ----- Pre-existing Type 1 Diabetes Mellitus Obesity, Other Maternal Care for Low Transverse Scar from ? x 1 Previous Delivery (Previous ) CODING ----- Diagnoses ? Z3A.33: Weeks of gestation ?O34.211: Maternal care for low transverse scar from previous delivery ?E66.8: Other obesity ?O24.013: Pre-existing type 1 diabetes mellitus, in ?Z3A.33: Weeks of gestation ?O24.013: Pre-existing type 1 diabetes mellitus, in Procedures ?78574: Ultrasound, uterus, real time with image documentation, follow up, transabdominal ?approach per fetus HISTORY ----- OB History ? 5. Para 1 ?T1A3L1 MATERNAL ASSESSMENT ----- Physical Exam ? Weight 79 kg. BMI 33.07 kg/m?? METHOD ----- Transabdominal ultrasound examination ----- Rodriguez . Number of fetuses: 1 DATING ----- Cycle: regular cycle GA by prior assessment 33 w + 2 d AARTI by prior assessment: 03/09/2023 Ultrasound examination on: 01/21/2023 GA by U/S based upon: AC, BPD, EFW, Femur, HC GA by U/S 34 w + 6 d AARTI by U/S: 02/26/2023 Method of dating: Restore dating from previous exam Assigned: based on stated AARTI, selected on 09/17/2022 Assigned GA 33 w + 2 d Assigned AARTI: 03/09/2023 BIOMETRY ----- BPD ?82.7 ? mm ?33w 2d ?44% ?Hadlock OFD ?119.2 ?mm ?-/- ?>99% ?Kirsty HC ? 324.2 ?mm ?36w 5d ?91% ?Hadlock AC ? 320.7 ?mm ?36w 0d ?98% ?Hadlock Femur ?64.5 ? mm ?33w 2d ?39% ?Hadlock HC / AC ?1.01 ? 27% ?Nicolaides Weight Calculation: EFW ? 2,585 ? g ? 35w 0d ?89% ?Hadlock EFW (lb,oz) ? 5 lb 11 ? oz EFW by ?Hadlock ([id number]) Head / Face / Neck Biometry: Cephalic index ?0.69 ?<1% ?Nicolaides Extremities / Bony Struc Biometry: FL / BPD ?0.78 FL / HC ? 0.20 FL / AC ? 0.20 GENERAL EVALUATION ----- Cardiac activity present. FHR 153 bpm. movements: present. Presentation: cephalic Placenta: Placental site: anterior Umbilical cord: Cord vessels: 3 vessel cord. Amniotic fluid: Amount of AF: normal amount. MVP 6.2 cm. CLARA 16.2 cm. Q1 6.2 cm, Q2 2.7 cm, Q3 3.8 cm, Q4 3.5 cm ANATOMY ----- The following structures appear normal: Head / Neck ? Cranium. Lateral ventricles. Choroid plexus. Midline falx. Cavum septi pellucidi. Cerebellum. Cisterna ?magna. Face ?Profile. Heart / Thorax ?4-chamber view. RVOT view. LVOT view. ?Diaphragm. Abdomen ? Stomach. Kidneys. Bladder. GROWTH OVERVIEW ----- Exam date ? GA ?BPD (mm) ? HC (mm) ?AC (mm) ? FL (mm) ?HL (mm) ?EFW (g) 09/17/2022 ?15w 2d ?30.2 ?57% ?115.9 ? 55% ?98.5 ?74% ? 18.8 ?58% ?18.0 ?52% ?133 ? 68% 10/26/2022 ?20w 6d ?49.7 ?57% ?191.0 ? 64% ?154.3 ?35% ?36.3 ?65% ?34.4 ?77% ?397 ? 56% 11/18/2022 ?24w 1d ?59.4 ?47% ?222.1 ? 35% ?209.0 ?80% ?45.3 ?65% ? 770 ? 82% 01/21/2023 ?33w 2d ?82.7 ?44% ?324.2 ? 91% ?320.7 ?98% ?64.5 ?39% ? 2,585 ? 89% COMMENT ----- Patient's name and date of were verified by the profile saw setup operator prior to the exam IMPRESSION ----- Viable at 33 weeks gestation complicated by type 1 diabetes, maternal obesity and previous Cephalic presentation The biometry is consistent with borderline LGA growth pattern Estimated weight at the 89th percentile with abdominal circumference at the 98th percentile No structural malformations identified within the limitations of a late ultrasound Amniotic fluid volume is normal Anterior placenta. Placenta is not low-lying Recommendations: -Patient scheduled for twice-weekly modified biophysical profile -Patient scheduled for a follow-up ultrasound in 4 weeks to assess growth Procedure Note Pato Castorena MD - 01/21/2023 STL FOLLOW UP ----- Pat. Name:Harlan FUCHS Date:01/21/2023 3:35pm Pat. NO: [id number] :PHILOMENA MOORE [facility]Magdalena Wade RDMS :1995Age:27 ----- INDICATION ----- Pre-existing Type 1 Diabetes Mellitus Obesity, Other Maternal Care for Low Transverse Scar from x 1 Previous Delivery (Previous ) CODING ----- Diagnoses Z3A.33: Weeks of gestation O34.211: Maternal care for low transverse scarfrom previous delivery E66.8: Other obesity O24.013: Pre-existing type 1 diabetes mellitus, inpregnancy Z3A.33: Weeks of gestation O24.013: Pre-existing type 1 diabetes mellitus, inpregnancy Procedures 81647: Ultrasound, uterus, real time withimage documentation, follow up, transabdominal approach per fetus HISTORY ----- OB History 5. Para 1 T1A3L1 MATERNAL ASSESSMENT ----- Physical Exam Weight 79 kg. BMI 33.07 kg/m?? METHOD ----- Transabdominal ultrasound examination ----- Rodriguez . Number of fetuses: 1 DATING ----- Cycle:regular cycle GA by prior [id number] w + 2 d AARTI by prior assessment:03/09/2023 Ultrasound examination on:01/21/2023 GA by U/S based upon:AC, BPD, EFW, Femur, HC GA by U/S34 w + 6 d AARTI by U/S:02/26/2023 Method of dating:Restore dating from previous exam Assigned:based on stated AARTI, selected on 09/17/2022 Assigned GA33 w + 2 d Assigned AARTI:03/09/2023 BIOMETRY ----- BPD 82.7 mm 33w 2d 44%Hadlock OFD 119.2 mm -/- >99%Kirsty HC 324.2 mm 36w 5d 91%Hadlock AC 320.7 mm 36w 0d 98%Hadlock Femur 64.5 mm 33w 2d 39%Hadlock HC / AC 1.01 27%Nicolaides Weight Calculation: EFW 2,585 g 35w 0d89% Hadlock EFW (lb,oz) 5 lb 11 oz EFW by Hadlock ([id number]) Head / Face / Neck Biometry: Cephalic index 0.69 <1%Nicolaides Extremities / Bony Struc Biometry: FL / BPD 0.78 FL / HC 0.20 FL / AC 0.20 GENERAL EVALUATION ----- Cardiac activity present. FHR 153 bpm. movements: present.Presentation: cephalic Placenta: Placental site: anterior Umbilical cord: Cord vessels: 3 vessel cord. Amniotic fluid: Amount of AF: normal amount. MVP 6.2 cm. CLARA 16.2 cm. Q16.2 cm, Q2 2.7 cm, Q3 3.8 cm, Q4 3.5 cm ANATOMY ----- The following structures appear normal: Head / Neck Cranium. Lateral ventricles. Choroid plexus.Midline falx. Cavum septi pellucidi. Cerebellum. Cisterna magna. Face Profile. Heart / Thorax 4-chamber view. RVOT view. LVOT view. Diaphragm. Abdomen Stomach. Kidneys. Bladder. GROWTH OVERVIEW ----- Exam date GA BPD (mm) HC (mm) AC (mm) FL(mm) HL (mm) EFW (g) 09/17/2022 15w 2d 30.2 57% 115.9 55% 98.5 74%18.8 58% 18.0 52% 133 68% 10/26/2022 20w 6d 49.7 57% 191.0 64% 154.3 35%36.3 65% 34.4 77% 397 56% 11/18/2022 24w 1d 59.4 47% 222.1 35% 209.0 80%45.3 65% 770 82% 01/21/2023 33w 2d 82.7 44% 324.2 91% 320.7 98%64.5 39% 2,585 89% COMMENT ----- Patient's name and date of were verified by the profile saw setup operator prior tothe exam IMPRESSION ----- Viable at 33 weeks gestation complicated by type 1 diabetes,maternal obesity and previous Cephalic presentation The biometry is consistent with borderline LGA growthpattern Estimated weight at the 89th percentile with abdominal circumferenceat the 98th percentile No structural malformations identified within the limitations of alate ultrasound Amniotic fluid volume is normal Anterior placenta. Placenta is not low-lying Recommendations: -Patient scheduled for twice-weekly modified biophysical profile -Patient scheduled for a follow-up ultrasound in 4 weeks to assess fetalgrowth Merari Jara NP US ORDERABLES documented in this encounter Visit Diagnoses Diagnosis Pre-existing type 1 diabetes mellitus in in third trimester Diabetes mellitus, antepartum documented in this encounter
--- OUTSIDE RECORDS SUMMARY | 2024-05-10 19:01 | XMS_ITS | Encounter Summary ---
Author Organization [facility] Address [address] [place] [address] Care Team Providers Care Bi Analyst Name Role Phone Unavailable Primary Care Provider Unavailabl e Encounter Details Date Type Department Care Team (Late st Contact Info) Description 07/30/2022 Abstract [facility]NAL [facility]IC[facility] [place] [address] [place] [id number] Charisma Haji Social History Tobacco Use Types Packs/Day Years [...]
--- OUTSIDE RECORDS SUMMARY | 2024-05-10 19:01 | XMS_ITS | Encounter Summary ---
Author Organization [facility] Address [address] [place] [address] Care Team Providers Care Industrial Hygenist Name Role Phone Unavailable Primary Care Provider Unavailabl e Reason for Visit * Reason Onset Date Comments Insurance Issues 09/18/2022 Encounter Details Date Type Department Care Team (Late st Contact Info) Description 09/18/2022 Telephone [facility]ERNAL [facility]IC[facility] [place] [id number] [place] [address] [address] [place] [address] Delia Stoddard MD NO ADDRESS ON FILE Insurance Issues Social History Tobacco Use Types Packs/Day Years [...] Telephone Encounter - Angelica Mcpherson RN - 09/18/2022 10:55 AM CDT Insurance prefers novolog. Rx changed. Pt notified via MM. documented in this encounter Plan of Treatment Not on file documented as of this encounter Visit Diagnoses Diagnosis Type 1 diabetes mellitus with hyperglycemia- Primary Type I (juvenile type) diabetes mellitus without mention of complication, not stated as uncontrolled documented in this encounter
--- OUTSIDE RECORDS SUMMARY | 2024-05-10 19:01 | XMS_ITS | Encounter Summary ---
Author Organization [facility] Address [address] [place] [address] Care Team Providers Care Emt Driver Name Role Phone Unavailable Primary Care Provider Unavailabl e Reason for Visit * Reason Comments Diabetes Encounter Details Date Type Department Care Team (Late st Contact Info) Description 09/08/2022 Chart Note [facility] Maternal and Medicine - [facility] [address] [facility] [address], [place] [address] Kelli Neal MD [address] [place] [address] Diabetes Social History Tobacco Use [...] AM CDT documented as of this encounter Progress Notes * Roxanna Rodrigues RN - 09/08/2022 2:10 PM CDT Images from the original note were not included. [facility] Maternal Medicine Diabetes Log Review Gestational age: 14w0d Type of DM: DM1 Current regimen: Humalog via Tandem insulin pump + Dexcom CGM Comments: Pump and CGM data reviewed. Pt is currently in Control IQ and uses sleep mode overnights.Average daily glucose per CGM is 113. Current average total daily dose of insulin 24.23 units. Of this, 52% is basal and 48% is bolus insulin. -Lows overnight and before meals which causes pump suspension and then pt rebounds high Recommendations: -Decrease basal rates by 6-11% -Adjust ISF based on TDD of 24 units using rule of 1800 -See pump changes below in bold -Send logs weekly and prn INSULIN PUMP Control IQ ON Control IQ ON BASAL RATES TIME Current 09/08 [id number] 0.9 0.80 4502-9591 1.2 1.10 6232-6677 0.8 0.75 0648-0309 0.9 0.85 CARB RATIO TIME Current 09/08 [id number] 8 8 [phone] 8 8 3461-7576 8 8 8754-1254 8 8 SENSITIVITY TIME Current 09/08 [id number] 30 50 TARGET TIME TARGET RANGE 1502-0826 110-110 Roxanna Rodrigues RN Certified Diabetes Care & Edu Specialist [facility] Maternal Medicine MFM Attending Addendum Logs personally reviewed. CGM reviewed Agree with above. Kelli Neal MD FACOG FACS Maternal Medicine 09/08/2022 documented in this encounter Plan of Treatment Not on file documented as of this encounter Visit Diagnoses Not on filedocumented in this encounter
--- OUTSIDE RECORDS SUMMARY | 2024-05-10 19:01 | XMS_ITS | Encounter Summary ---
Author Organization [facility] Address [address] [place] [address] Care Team Providers Care Freedom Of Information Officer Name Role Phone Unavailable Primary Care Provider Unavailabl e Reason for Referral * Radiology Services (Routine) - Closed Specialty Diagnoses / Procedures Referred By Rachael frey Referred To Contact Radiology Diagnoses Supervision of high risk in first trimester Obesity affecting in first trimester 12 weeks gestation of Type 1 diabetes mellitus with hyperglycemia Procedures US OB 14+ WKS SINGLE Kelli Leos MD [address] [place] [address], [place] [address] [facility] [address] [place] [address] Referral ID Status Reason Start Date Expiration Date Visits Re quested Visits Authorized [id number] Closed 08/31/2022 10/01/2023 1 1 Reason for Visit * Radiology Services (Routine) - Closed Specialty Diagnoses / Procedures Referred By Rachael frey Referred To Contact Radiology Diagnoses Supervision of high risk in first trimester Obesity affecting in first trimester 12 weeks gestation of Type 1 diabetes mellitus with hyperglycemia Procedures US OB 14+ WKS SINGLE Kelli Leos MD [address] [place] [address] [facility] [address] [place] [address] Referral ID Status Reason Start Date Expiration Date Visits Re quested Visits Authorized [id number] Closed 08/31/2022 10/01/2023 1 1 Encounter Details Date Type Department Care Team (Late st Contact Info) Description 09/17/2022 12:45 PM CDT - 09/17/2022 11:59 PM CDT Hospital Encounter [facility] [address] [place] [address] Kelli Neal MD [address] [facility] [address] [place] [address] Discharge Disposition: Home or Self Care [...] AM CDT documented as of this encounter Medications at Time of Discharge Medication Sig Dispensed Refills Start Date End Date vit,calc76/iron/foli c (PNV 29-1 ORAL) Take by mouth. 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 120 Tablet 4 08/31/2022 insulin glargine (Lantus Solostar U-100 Insulin) 100 unit/mL pen syringe Inject 25 Units by subcutaneous injection. 02/06/2022 01/06/2023 insulin glargine (Basaglar KwikPen U-100 Insulin) 100 unit/mL pen syringe Inject 9 Units by subcutaneous injection. 03/23/2020 01/06/2023 insulin lispro (HumaLOG) 100 unit/mL vial Use up to 100 units per day via SQ insulin pump therapy as directed. 30 mL 6 09/17/2022 09/18/2022 documented as of this encounter Plan of Treatment Not on file documented as of this encounter Procedures Procedure Name Priority Date/Time Associated Diagnosis Comments US OB 14+ WKS SINGLE GEST Routine 09/17/2022 1:33 PM CDT Supervision of high risk in first trimester Obesity affecting in first trimester 12 weeks gestation of Type 1 diabetes mellitus with hyperglycemia documented in this encounter Results * US OB 14+ WKS SINGLE GEST (09/17/2022 1:33 PM CDT) Anatomical Region Laterality Modality Pelvis Ultrasound 09/17/2022 1:00 PM CDT Narrative 09/17/2022 1:43 PM CDT STL BASIC ----- Pat. Name: KARINA FUCHS Study Date: 09/17/2022 1:00pm Pat. NO: [id number] Referring ??: PHILOMENA MOORE MD Site: [facility] [employer] Clerk: Magdalena Xiong : 1995 Age: 27 ----- INDICATION ----- Pre-existing Type 1 Diabetes Mellitus Obesity, Other Maternal Care for Low Transverse Scar from ? x 1 Previous Delivery (Previous ) CODING ----- Diagnoses ? Z3A.15: Weeks of gestation ?O34.211: Maternal care for low transverse scar from previous delivery ?E66.8: Other obesity ?O24.012: Pre-existing type 1 diabetes mellitus, in Procedures ?76892: Ultrasound, uterus, real time with image documentation, and maternal evaluation, ?after first trimester (> or = 14 weeks 0 days), transabdominal approach; single or first gestation HISTORY ----- OB History ? 5. Para 1 ?T1A3L1 MATERNAL ASSESSMENT ----- Physical Exam ? Weight 79 kg. BMI 33.07 kg/m?? METHOD ----- Transabdominal ultrasound examination ----- Rodriguez . Number of fetuses: 1 DATING ----- Cycle: regular cycle Method of dating: based on stated AARTI GA by prior assessment 15 w + 2 d AARTI by prior assessment: 03/09/2023 Ultrasound examination on: 09/17/2022 GA by U/S based upon: AC, BPD, EFW, Femur, HC GA by U/S 15 w + 5 d AARTI by U/S: 03/06/2023 Assigned: based on stated AARTI, selected on 09/17/2022 Assigned GA 15 w + 2 d Assigned AARTI: 03/09/2023 BIOMETRY ----- BPD ?30.2 ? mm ? 15w 4d ? 57% ?Haddeya OFD ?41.0 ? mm ? 16w 2d ? 82% ?Kirsty HC ? 115.9 ?mm ? 15w 5d ? 55% ?Hadlock Cerebellum tr ?15.1 ? mm ? 16w 1d ? 65% ?Villarreal AC ? 98.5 ? mm ? 15w 6d ? 74% ?Hadlock Femur ?18.8 ? mm ? 15w 4d ? 58% ?Hadlock Humerus ?18.0 ? mm ? 15w 1d ? 52% ?Kirsty HC / AC ?1.18 ?26% ? Nicolaides Weight Calculation: EFW ?133 ? g ?15w 4d ?68% ?Hadlock EFW (lb,oz) ?0 lb 5 ?oz EFW by ?Hadlock ([id number]) Head / Face / Neck Biometry: Cephalic index ?0.74 ? 3% ?Nicolaides CM ?2.3 ? mm ? 8% ?Nicolaides Extremities / Bony Struc Biometry: FL / BPD ? 0.62 ?78% ?Hadlock FL / HC ?0.16 ?53% ?Hadlock FL / AC ?0.19 ?42% ?Hadlock GENERAL EVALUATION ----- Cardiac activity present. FHR 158 bpm. movements: visualized. Presentation: breech Placenta: Placental site: anterior. Placental gotu-tw-avwzddmh os distance 40 mm Umbilical cord: Cord vessels: 3 vessel cord. Insertion site: placental insertion: normal Amniotic fluid: Amount of AF: normal amount. MVP 3.6 cm ANATOMY ----- The following structures appear normal: Head / Neck ? Cranium. Choroid plexus. Midline falx. Face ?Profile. Heart / Thorax ?Situs. Cardiac rhythm. ?Diaphragm. Abdomen ? Abdominal wall. Stomach. Kidneys. Bladder. Extremities / ? Arms. Legs. Skeleton The following structures could not be adequately visualized: Head / Neck ? Lateral ventricles. Cavum septi pellucidi. Cerebellum. Cisterna magna. ?Nuchal fold. Face ?Lips. Nose. Palate. Orbits. Heart / Thorax ?4-chamber view. RVOT view. LVOT view. 3-vessel view. 9-nklfgf-virfspe view. Aortic arch view. Ductal arch ?view. Superior vena cava. Inferior vena cava. High short axis view. Spine ? Cervical spine. Thoracic spine. Lumbar spine. Sacral spine. Extremities / ? Right hand. Left hand. Right foot. Left foot. Skeleton MATERNAL STRUCTURES ----- Cervix ?Visualized ?Approach - Transabdominal: Cervical length 45.1 mm Right Ovary ? Suboptimal ?Size 27 mm x 17 mm x 14 mm. Vol 3.3 cm?? Left Ovary ?Suboptimal ?Size 34 mm x 24 mm x 14 mm. Vol 6.0 cm?? GROWTH OVERVIEW ----- Exam date ? GA ?BPD (mm) ? HC (mm) ?AC (mm) ?FL (mm) ?HL (mm) ?EFW (g) 09/17/2022 ?15w 2d ?30.2 ?57% ?115.9 ? 55% ?98.5 ?74% ?18.8 ?58% ?18.0 ?52% ?133 ?68% COMMENT ----- Patient's name and date of were confirmed by the airfield operations specialist prior to the exam IMPRESSION ----- Impression: - Rodriguez viable intrauterine at 15w 2d - Estimated weight is 133 g (68%ile) - Amniotic fluid volume: normal amount (maximum vertical pocket 3.6 cm) - Placenta anterior. Not low lying. Central cord insert. - Unremarkable early anatomic views. - The cervical length is 45.1 mm. Comments: A basic anatomic survey was performed. The presence of a normal anatomic survey does not rule out genetic, chromosomal or structural anomalies. Recommendation: - Detailed ultrasound in 4 weeks. Thank you for inviting us to participate in your patient's care. Procedure Note Delia Stoddard MD - 09/17/2022 STL BASIC ----- Pat. Name:Harlan FUCHS Date:09/17/2022 1:00pm Pat. NO: [id number] MD:PHILOMENA MOORE [facility]dalena Xiong :1995Age:27 ----- INDICATION ----- Pre-existing Type 1 Diabetes Mellitus Obesity, Other Maternal Care for Low Transverse Scar from x 1 Previous Delivery (Previous ) CODING ----- Diagnoses Z3A.15: Weeks of gestation O34.211: Maternal care for low transverse scarfrom previous delivery E66.8: Other obesity O24.012: Pre-existing type 1 diabetes mellitus, inpregnancy Procedures 90966: Ultrasound, uterus, real time withimage documentation, and maternal evaluation, after first trimester (> or = 14 weeks 0 days),transabdominal approach; single or first gestation HISTORY ----- OB History 5. Para 1 T1A3L1 MATERNAL ASSESSMENT ----- Physical Exam Weight 79 kg. BMI 33.07 kg/m?? METHOD ----- Transabdominal ultrasound examination ----- Rodriguez . Number of fetuses: 1 DATING ----- Cycle:regular cycle Method of dating:based on stated AARTI GA by prior [id number] w + 2 d AARTI by prior assessment:03/09/2023 Ultrasound examination on:09/17/2022 GA by U/S based upon:AC, BPD, EFW, Femur, HC GA by U/S15 w + 5 d AARTI by U/S:03/06/2023 Assigned:based on stated AARTI, selected on 09/17/2022 Assigned GA15 w + 2 d Assigned AARTI:03/09/2023 BIOMETRY ----- BPD 30.2 mm 15w 4d57% Hadlock OFD 41.0 mm 16w 2d82% Kirsty HC 115.9 mm 15w 5d55% Hadlock Cerebellum tr 15.1 mm 16w 1d65% Phil AC 98.5 mm 15w 6d74% Hadlock Femur 18.8 mm 15w 4d58% Hadlock Humerus 18.0 mm 15w 1d52% Kirsty HC / AC 1.18 26%Nicolaides Weight Calculation: EFW 133 g 15w 4d 68%Hadlock EFW (lb,oz) 0 lb 5 oz EFW by Hadlock ([id number]) Head / Face / Neck Biometry: Cephalic index 0.74 3%Nicolaides CM 2.3 mm 8%Nicolaides Extremities / Bony Struc Biometry: FL / BPD 0.62 78%Hadlock FL / HC 0.16 53%Hadlock FL / AC 0.19 42%Hadlock GENERAL EVALUATION ----- Cardiac activity present. FHR 158 bpm. movements: visualized.Presentation: breech Placenta: Placental site: anterior. Placental loci-tj-jjymsdrk os sxpsucyo07 mm Umbilical cord: Cord vessels: 3 vessel cord. Insertion site: placentalinsertion: normal Amniotic fluid: Amount of AF: normal amount. MVP 3.6 cm ANATOMY ----- The following structures appear normal: Head / Neck Cranium. Choroid plexus. Midline falx. Face Profile. Heart / Thorax Situs. Cardiac rhythm. Diaphragm. Abdomen Abdominal wall. Stomach. Kidneys. Bladder. Extremities / Arms. Legs. Skeleton The following structures could not be adequately visualized: Head / Neck Lateral ventricles. Cavum septi pellucidi.Cerebellum. Cisterna magna. Nuchal fold. Face Lips. Nose. Palate. Orbits. Heart / Thorax 4-chamber view. RVOT view. LVOT view. 3-vesselview. 4-avpbrr-ijmwmvr view. Aortic arch view. Ductal arch view. Superior vena cava. Inferior vena cava. Highshort axis view. Spine Cervical spine. Thoracic spine. Lumbar spine.Sacral spine. Extremities / Right hand. Left hand. Right foot. Left foot. Skeleton MATERNAL STRUCTURES ----- Cervix Visualized Approach - Transabdominal: Cervical length 45.1mm Right Ovary Suboptimal Size 27 mm x 17 mm x 14 mm. Vol 3.3 cm?? Left Ovary Suboptimal Size 34 mm x 24 mm x 14 mm. Vol 6.0 cm?? GROWTH OVERVIEW ----- Exam date GA BPD (mm) HC (mm) AC (mm) FL(mm) HL (mm) EFW (g) 09/17/2022 15w 2d 30.2 57% 115.9 55% 98.5 74%18.8 58% 18.0 52% 133 68% COMMENT ----- Patient's name and date of were confirmed by the airfield operations specialist priorto the exam IMPRESSION ----- Impression: - Rodriguez viable intrauterine at 15w 2d - Estimated weight is 133 g (68%ile) - Amniotic fluid volume: normal amount (maximum vertical pocket 3.6 cm) - Placenta anterior. Not low lying. Central cord insert. - Unremarkable early anatomic views. - The cervical length is 45.1 mm. Comments: A basic anatomic survey was performed. The presence of anormal anatomic survey does not rule out genetic, chromosomal or structural anomalies. Recommendation: - Detailed ultrasound in 4 weeks. Thank you for inviting us to participate in your patient's care. Kelli Neal MD US ORDERABLES documented in this encounter Visit Diagnoses Diagnosis Supervision of high risk in first trimester Unspecified high-risk Obesity affecting in first trimester 12 weeks gestation of state, incidental Type 1 diabetes mellitus with hyperglycemia Type I (juvenile type) diabetes mellitus without mention of complication, not stated as uncontrolled documented in this encounter
--- OUTSIDE RECORDS SUMMARY | 2024-05-10 19:01 | XMS_ITS | Encounter Summary ---
Author Organization [facility] Address [address] [place] [address] Care Team Providers Care Clinical Quality Assurance Specialist Name Role Phone Unavailable Primary Care Provider Unavailabl e Reason for Visit * Auth/Cert (Routine) Specialty Diagnoses / Procedures Referred By Rachael t Referred To Contact Critical Care Medicine Diagnoses MFTI 2, Pos DKA abnormal VS Zbigniew Marino MD [address] [address] [place] [address] [facility] Med Surg Icu [address] [place] [address] Referral ID Status Reason Start Date Expiration Date Visits Re quested Visits Authorized [id number] 1 1 Encounter Details Date Type Department Care Team (Late st Contact Info) Description 02/07/2023 5:00 AM CDT - 02/07/2023 6:57 AM CDT Surgery [facility] Labor & [address] [place] [address] Enrico Casillas MD [address] [place] [address] SECTION Surgery Details Date/Time Status Location OR Service Patient Class Case Class Case Type Trauma Case? 02/07/2023 5:[address] L&D C-S B Obstetrics Inpatient Elective No Panel 1 Procedure LRB Anes Op Region Wound Class Comments SECTION N/A Epidural Abdomen Clean Contami nated-II Surgeon Surgeon Role Service Panel Enrico Casillas MD Primary Obstetrics 1 documented in this encounter Social History [...] Sign Reading Time Taken Comments Blood Pressure 117/74 02/07/2023 6:55 AM CDT Pulse 75 02/07/2023 6:55 AM CDT Temperature 36.7 ??C (98 ??F) 02/07/2023 5:57 AM CDT Respiratory Rate 13 02/07/2023 6:55 AM CDT Oxygen Saturation 99% 02/07/2023 6:55 AM CDT Inhaled Oxygen Concentration - - Weight 74.4 kg (164 lb) 01/29/2023 4:40 PM CDT Height 157.5 cm (5' 2 ) 01/29/2023 4:40 PM CDT Body Mass Index 30 01/29/2023 4:40 PM CDT documented in this encounter Discharge Summaries * Kelli Neal MD - 02/13/2023 10:25 AM CDT [facility] Discharge Summary Patient: Chey Selby Menjivar / 27 y.o. / female : 1995 CSN: [id number] 02/13/2023 Admitting Physician: Zbigniew Marino MD Consults: [...] with HROB and Endocrinology. Pt to call [employer] and see if they are comfortable treating [...] [] A1c likely to be rechecked via protective services case worker but if not, will check qtrimester Starvation [...] with HROB and Endocrinology. Pt to call [employer] and see if they are comfortable treating [...] [] A1c likely to be rechecked via protective services case worker but if not, will check qtrimester Starvation ketoacidosis Mild pre-eclampsia in third trimester Operations/Procedures: R C/S HPI: This is a 27 y.o. female who presented with T1DM who presented with preE with SF Hospital Course: The patient was admitted to [facility] where she underwent a repeat delivery, course [...] the case of insulin pump failure. Notify [facility] DM team LU[place] if pump fails 10 mL 1 Insulin Syringe-Needle U-100 0.3 mL 31 gauge x 5/16 Syringe To be used to inject insulin 5-8 timesdaily in the case of insulin pump failure. Notify [facility] DM team [place] if pump fails [...] the case of insulin pump failure. Notify [facility] DM team [place] if pump fails [...] mg 0.2 mg IM every 2 hours Kelli Thayer MD oxytocin in sodium chloride 0.9 % [...] in 1,000 mL infusion IV continuous Kelli Flores MD New Bag at 02/07/23 0529 nalbuphine [...] Kelli Flores MD 325 mg at 02/13/23 09 magnesium hydroxide (MILK OF MAGNESIA) oral suspension 30 mL 30 mL Oral at bedtime PRN Kelli Flroes MD sennosides-docusate sodium (SENNA-S) 8.6-50 mg per [...] 40 mg at1 0909 flu vaccine quadrivalent (6 mo+)(PF) (FLUARIX QUAD,FLULAVAL QUAD,FLUZONE QUAD) 60 mcg (15 mcg x 4)/0.5 mL syringe 60 mcg 1 Dose IM ONE time only Kelli Flores MD loperamide (IMODIUM) capsule 2 mg 2 mg Oral QID PRN Kelli Floers MD 2 mg at 02/03/23 1320 prochlorperazine [...] Kelli Flores MD 1 Tablet at 02/13/23 0909 dextrose 5% - sodium chloride 0.9% infusion [...] Olmedo LMSW - 01/30/2023 3:11 PM CDT [facility]ician Referral Line [phone] Call for assistance establishing a new Primary Care Physician. Or [facility] find [facility] Website: [email or web address] documented in this encounter Medications at Time of Discharge Medication Sig Dispensed Refills Start Date End Date Insulin Syringe-Needle U-100 0.3 mL 31 gauge x 09/15 SyringeIndications:P re-existing type 1 diabetes mellitus in in third trimester To be used to inject insulin 5-8 times daily in the case of insulin pump failure. Notify [facility] DM team [place] if pump fails [...] Consider discharge home today. Antonella Pantoja MD Custom Seamstress Resident, PGY-2 Pager#: [phone] * Shonda Beckford RN - 02/12/2023 10:10 [...] bruising. The mother is attaching to the infant well. There are no concerns at this [...] of carbs. Patient had cheese cubes at 2130. Prior to eating she received one unit of Humalog. Patient received long acting insulin around 2230 which was 12 units. 2 AM BS [...] Glucose over course of yesterday: 131-350s - F/Pre/Post/q/0200; or if patient experiences symptoms of hypoglycemia [...] yesterday, has been calibrating. Cheli Hobson MD COMMUNICATIONS ATTENDANT Resident, PGY-3 MFM Attending Addendum The [...] which greater than 50% was spent in bala-ot-ouht counseling and/or coordination of care with the [...] following regimen - PP: Lantus 4/10 (increased 02/10 PM)>8/10 (proposed changed for today, Humalog ICR [...] Routine post operative cares. Cheli Hobson MD COMMUNICATIONS ATTENDANT Resident, PGY-3 MFM Attending Addendum: The patient was seen and evaluated by myself and the resident/REGULATORY COMPLIANCE ENGINEER. Agree with the findings and plan as [...] well. I discussed the case with our engine manager and Ms. Menjivar was given information to [...] CDT Dr. Hobson and Dr. Marino with [facility], aware of this mornings blood sugars and [...] following regimen - PP: Lantus -/6 (reduced 02/09 AM), Humalog ICR 1:10 g for all meals; sensitivity of increased to 1:50 >100; will continue to adjust as appropriate - Glucose over course of yesterday: 70s-300s (fasting this AM: 317, true fasting - F/Pre/Post/qhs/0200; or if patient experiences symptoms [...] Routine post operative cares. Cheli Hobson MD COMMUNICATIONS ATTENDANT Resident, PGY-3 MFM Attending Addendum: The patient was seen and evaluated by myself and the resident/REGULATORY COMPLIANCE ENGINEER. Agree with the findings and plan as [...] Correctional sensitivity of 1:100>100. Cheli Hobson MD COMMUNICATIONS ATTENDANT Resident, PGY-3 * Rosalinda Francis MD [...] the same, and reducing mealtime Humalog to -//2 - pt plans to go back to [...] Routine post operative cares. Cheli Hobson MD COMMUNICATIONS ATTENDANT Resident, PGY-3 Attending Addendum The patient's [...] from the original note were not included. [facility] Adult Inpatient HYPOglycemia Protocol [facility] Approved by: [facility] - Medical Executive Committee Approval Date: 11/19/2022 [...] but not requiring them. Instructed to call food and beverage manager in the morning and inquire about removing [...] Routine post operative cares Cheli Hobson MD COMMUNICATIONS ATTENDANT Resident, PGY-3 Attending Addendum The patient's chart and plan of care has been reviewed. I have seen and examined this patient independently. I agree with the above with the following additions: continue routine PP care, recovering appropriately. MFM managing T1DM. Lawson Abdalla MD OB Hospitalist 02/08/2023 8:26 AM MFM Attending Addendum: The patient was seen and evaluated by myself and the resident/REGULATORY COMPLIANCE ENGINEER. Agree with the findings and plan as documented above. All pertinent questions addressed and answered. Chief Complaint: complicated by the aforementioned concerns I agree with the plan of care as above. Lantus decreased to 8/8 today. MFM will continue to follow,including managing diabetes through our clinic until Chey has an appointment with her protective services case worker. Zbigniew Marino MD MS FACOG Maternal Medicine [...] as POC glucose in within normal limits. 1341-4186: Slight extension of previously marked area on [...] transitioned from insulin gtt>subQ insulin 10/ PM Post op - bandage to be [...] the following regimen -PP: Lantus 02/09, Humalog /08/04 for 02/07, will adjust as appropriate - pt plans to go back to insulin pump eventually pending insurance - F/Pre/Post/q/0; or if patient experiences symptoms [...] to moderate bleeding. Upon transfer to room 61, blood noted on incision dressing. raveler to notify resident. * Kelli Flores MD [...] given contractions and decelerations. Aura Flores MD COMMUNICATIONS ATTENDANT Resident, PGY-4 Pager #: [phone] Discussed prolonged decels with Dr. Castorena. Recommend proceeding with RCS at this time. Patient recently ate dinner so will plan for 0500. Discussed with Dr. Casillas. Discussed with patient who is agreeable. Laura Salazar MD PGY3 OBGYN [phone] * Jeana Gonzalez RN - 02/06/2023 8:13 [...] change since this AM. Appears comfortable. SVE: /-3, unchanged from prior Will administer small bolus and continue monitoring. If reassuring, can take off monitor and continue NST BID. Laura Salazar MD PGY3 OBGYN [phone]: patient continuing to report contractions, now 12/10. Patient now tachycardic to 110s-120s. Vitals: 02/06/23 1404 BP: 124/75 Pulse: Resp: Temp: SpO2: SVE: /-3 FHT: 140, mod variability, accels, intermittent variable decels [place]: q2-8mins, irregular Discussed with Dr. Casillas. Continue [...] Holloway to evaluate contractions. Aura Flores MD COMMUNICATIONS ATTENDANT Resident, PGY-4 Pager #: [phone] * Lan Montelongo MD - 02/06/2023 9:17 [...] were not included. CLINICAL DIETITIAN PROGRESS NOTE [facility] Follow Up Nutrition Assessment Patient reports her [...] is 30 kg/m??. Last Bowel Movement (mm/dd/yyyy): (PAPER LATCHER) (01/31/23 0400) Nutrition Prescription: DIET SUPPLEMENT GEN [...] Absent TOCO: CTXs occasional Interpretation: reactive Lorenzo Harrison DO COMMUNICATIONS ATTENDANT PGY-4 Pager: [phone] Agree with assessment Pato Castorena MD * [...] 1500. This has beenscheduled. Cheli Hobson MD COMMUNICATIONS ATTENDANT Resident, PGY-3 MFM Attending Addendum The [...] and Referring and communication with other health emergency care attendant (not separately reported). Pato Castorena M.D. Maternal- [...] to decelerations earlier today Anita Steele MD COMMUNICATIONS ATTENDANT Resident, PGY-3 Pager #: [phone] R3 Pager: [phone] * Cammie Macario MD - 02/04/2023 10:49 [...] to place on monitor. Cheli Hobson MD COMMUNICATIONS ATTENDANT Resident, PGY-3 * Charisma Jenkins MD [...] No calf tenderness. SVE per Dr. Macario (10 PM): 2/- Status: Please refer to NST notes; NST [...] coverage and delivery planning. Fidel Perez MD COMMUNICATIONS ATTENDANT PGY-2 Resident MFM Attending Attestation: I [...] labile glucoses. Charisma Jenkins MD Maternal Medicine [facility], [place], [place] * Charisma Jenkins MD - 02/03/2023 11:24 PM CDT Non-Stress Test Indication: Type I DM, starvation ketosis Gestational Age: 35w1d Baseline: 150 bpm Variability: moderate Accelerations: present Decelerations: Variable decels TOCO: CTXs rare Interpretation: reactive, variable decels > improved after extended monitoring Anita Steele MD COMMUNICATIONS ATTENDANT Resident, PGY-3 Pager #: [phone] R3 Pager: [phone] Agree with documentation. Pt had deceleration around 1635, then reactive following this time. Had variable around 2100. Overall monitor is reactive and reassuring. Cont monitoring as scheduled. 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 [] [x] Have you had nausea, [...] from 0600 to 0735 Fidel Perez MD COMMUNICATIONS ATTENDANT PGY-2 Resident * Pinky Minaya RN [...] 16.2cm Labs: Recent Labs 01/31/23212202/01/23 0839 02/01/23 21302/02/23 0455 02/02/23 0909 WBC -- 6.1 -- [...] CLARA 17.4cm, MVP 8.3cm, NST reactive - [facility] US 01/21: ceph, EFW 2585g (89%), AC [...] plan as outlined above. Fidel Perez MD COMMUNICATIONS ATTENDANT PGY-2 Resident MFM Attending Attestation: I [...] Cont hospitalization. Charisma Jenkins MD Maternal Medicine [place], [place] * Pinky Minaya RN - 02/03/2023 8:[address] Hobson PGY-3 called into nurses station. Orders received for morning lispro to be 1u per 7 carbohydrates. PGY-3 to update JUL. * Cammie Macario MD - 02/03/2023 12:43 AM CDT Brief Resident Note Came to recheck patient's cervix and reassess contractions. Contractions have spaced out to q5-7. Patient reports they are less painful than before, around 7/10. Tylenol offered for pain and patient declined. [...] hour or earlier if worsening contractions. Hospitalist special education tutor updated. Cammie Macario MD Obstetrics & Gynecology Resident, PGY-2 Pager #: * Charisma Jenkins MD - 02/02/2023 9:32 PM CDT Non-Stress Test Indication: T1DM, recent DKA Gestational Age: 35w0d Baseline: 145 bpm Variability: moderate Accelerations: present Decelerations: Intermittent small variable decels TOCO: CTXs no Interpretation: reactive Amanda Combs DO OBGYN PGY4 Pager: [phone] Agree with documentation. Charisma Jenkins MD [facility] * Ken Mcduffie (Student) - 02/02/2023 [...] who are supportive Goals of Spiritual Care O And M Supervisor Plan I plan to follow up during rounds to offer spiritual support and to reassess. Recommendations for Healthcare Team Please feel free to consult spiritual care provider/station baggage porter if/when emotional/spiritual distress arises. Thank you for this referral. TONE Bowman [employer] Student [phone] * Charisma Jenkins MD - 02/02/2023 10:08 AM CDT Non-Stress Test Indication: T1DM, recent DKA Gestational Age: 35w0d Baseline: 150 bpm Variability: moderate Accelerations: present Decelerations: Absent TOCO: CTXs no Interpretation: reactive Lorenzo Harrison DO COMMUNICATIONS ATTENDANT PGY-4 Pager: [phone] Agree with documentation. Charisma Jenkins MD [facility] * Charisma Jenkins MD - 02/02/2023 [...] 1900-MN - pre-prandial correction 1:30>120 - Continue [id number] if not eating; will transition to fasting, [...] plan as outlined above. Fidel Perez MD COMMUNICATIONS ATTENDANT PGY-2 Resident MFM Attending Attestation: I [...] 37 weeks. Charisma Jenkins MD Maternal Medicine [facility], [place], [place] * Jazmin Jewell RN - 02/01/2023 11:51 [...] CTXs no Interpretation: reactive Anita Steele MD COMMUNICATIONS ATTENDANT Resident, PGY-3 Pager #: [phone] R3 Pager: [phone] Agree with documentation overall- possible variable deceleration. Overall reassuring. Charisma Jenkins MD [facility] * Jazmin Jewell RN - 02/01/2023 [...] CTXs occasional Interpretation: reactive Cheli Hobson MD COMMUNICATIONS ATTENDANT Resident, PGY-3 Agree with documentation. Occasional variable. Charisma Jenkins MD [facility] * Cheli Hobson MD - 02/01/2023 [...] BP: 113/66 98/59 118/78 Pulse: Resp: 18 18 18 Temp: 98 ??F (36.7 ??C) 97.9 [...] Repeat CBC, CMP, Mag, Phos q12hrs, next / PM - Follow up final blood cultures [...] 1900-MN - pre-prandial correction 1:30>100 - Continue [id number] if not eating; will transition to fasting, [...] plan as outlined above. Cheli Hobson MD COMMUNICATIONS ATTENDANT Resident, PGY-3 * Kita Hastings GN - 02/01/2023 4:[address] Steele, PGY-3, notified of incompatibilities with electrolyte replacement and LR. OK to run NS while running electrolyte replacement. * Cammie Macario MD - 02/01/2023 12:47 AM CDT In patient's room to collect GBS swab with RN kaitlyn. Cammie Macario MD Obstetrics & Gynecology Resident, PGY-2 Pager #: * Charisma Jenkins MD - 01/31/2023 9:52 PM CDT Non-Stress Test Indication: DKA Gestational Age: 34w5d Baseline: 150 bpm Variability: moderate Accelerations: present Decelerations: One small variable decel TOCO: CTXs no Interpretation: reactive Amanda Combs DO OBGYN PGY4 Pager: [phone] Agree with documentation. Charisma Jenkins MD MFM * Laura Salazar MD - 01/31/2023 4:56 [...] tomorrow AM. Laura Salazar MD PGY3 OBGYN [phone] * Soniya Monreal RN - 01/31/2023 3:47 PM CDT EFM removed for transfer to [facility]. * Zbigniew Lima RN - 01/31/2023 3:28 [...] substance use. Her primary OB is at [facility]. ICU Timeline: 01/29: insulin gtt, vancomycin + [...] Input/Output 01/29 1900 - 01/31 0659 In: 18172.5 [I.V.:09099.5] Out: 1250 [Urine:1250] Physical Exam GENERAL: Sleeping, [...] Labs 01/29/23170201/29/23215201/30/23 0015 01/30/23 0357 01/30/23 1104 01/30/23 1709 01/31/23 0518 GLUCOSE 139* 184* 194* [...] results found for: PHARTERIAL , PO2ART , JTT7CNW , ZLO6MNP , BASEEXCESS , SO2ABG Central VBG: No results found for: PHMIXEDVEN , WU0SXLGMRH , ZVV3MEXBEX , LCZ0JXYNL , TH9VEHK Lactic acid: Lab Results Component Value Date/Time LACTATE 1.2 01/30/2023 11:04 AM LACTATE 1.5 01/30/2023 03:57 AM LACTATE 1.8 01/30/2023 12:15 AM Radiology Last Imaging reviewed * Chris Aguirre MD - 01/31/2023 11:42 AM CDT Critical Care Medicine Attending Daily Progress Note I reviewed the medical record including the applicable Critical Care Medicine resident, Fellow, REGULATORY COMPLIANCE ENGINEER or PA???s note from today. I independently examined the patient. I discussed the history, physical findings, laboratory findings, assessment and plan with the applicable resident/Fellow/REGULATORY COMPLIANCE ENGINEER/PA on rounds. Reason for ICU admission: Ketoacidosis. I have reviewed the physical exam findings in the applicable resident/Fellow/REGULATORY COMPLIANCE ENGINEER/PA's note. I have reviewed the assessment and plan in the applicable resident/Fellow/REGULATORY COMPLIANCE ENGINEER/PA's note. Notable amendments to the assessment and [...] than DKA. Change from insulin drip to PAPER LATCHER regimen of Lantus. At high risk of [...] OB: Under the care of OB Hospitalist MFM Consulting Problem List: Starvation ketosis vs DKA [...] decelerations around 4AM. NST reactive since then. [place]: Currently off toco BSUS 01/29/23: vertex, CLARA [...] of monitoring given spontaneous decelerations in the 6630-2449 hour. She agreed to continue monitoring. Denies [...] lasting 2-3 min x 2, mild variables [place]: silent BSUS 01/29/23: vertex, CLARA 9.20cm, MVP [...] RN - 01/31/2023 4:40 AM CDT PGY2 Reginald paged to notify of 2-minute prolonged deceleration into the 70s. * Zabrina Geronimo DO - 01/30/2023 10:21 PM CDT CCM Brief Progress Note: 10:22 PM Called by nurse regarding fluid order expiring Chart reviewed and action taken: Renewed fluids Zabrina Geronimo DO call taker fellow [phone] Unable to reach, call [phone] Tatyana Richmond if still unable to reach ([phone]) * Obdulia Estrada RN - 01/30/2023 8:01 [...] Espinosa MD - 01/30/2023 1:59 PM CDT [facility] ATTENDING: Vidhi Espinosa MD I reviewed the medical record including the applicable Critical Care Medicine resident, Fellow, REGULATORY COMPLIANCE ENGINEER or PA???s note from today. I independently examined the patient. I discussed the history, physical findings, laboratory findings, assessment and plan with the applicable resident/Fellow/REGULATORY COMPLIANCE ENGINEER/PA on rounds. I have reviewed the physical exam findings in the applicable resident/Fellow/REGULATORY COMPLIANCE ENGINEER/PA's note; my notable physical exam findings include: Neuro: Patient is oriented x4 but appears very tired CV: Slightly tachycardic but regular Resp: Clear lungs anteriorly and posteriorly GI: Gravid uterus I have reviewed the assessment and plan in the applicable resident/Fellow/REGULATORY COMPLIANCE ENGINEER/PA's note. Notable amendments to the assessment and [...] End of Shift Note: Pt admitted to [address] [address] around 2200. A&Ox4, complaining of abdominal pain. Continuous nausea w/ intermittent vomiting, patient refusing PRNs & scheduled reglan. Insulin gtt started & titrated per JUL. Anion Gap closed this am. Voided x2 per bedpan. UNDRESS AND ASSESS FOR ALL ADMISSIONS AND TRANSFERS: Undress and Assess performed by: bedside coworker Gretta and bedside coworker Porter upon transfer to [address] [address] Patient does not have skin breakdown. If [...] services. Wound care consult was not initiated. [facility] Skin Care Injury Prevention and Treatment Protocol [facility] Approved by: [facility] - Medical Executive Committee Approval Date: 05/18/2019 [...] in the Wound Care Algorithm. * Johanne Coughlin, - 01/30/2023 7:12 AM CDT CRITICAL CARE [...] substance use. Her primary OB is at [facility]. ICU Timeline: 01/29: insulin gtt, vancomycin + [...] CBC: Recent Labs 01/29/23170201/29/23215201/30/23 0015 01/30/23 0357 WBC 20.2* 18.5* 16.6* [...] SCr of 0.53 mg/dL). LFTs: Recent Labs 01/29/23 1703 01/29/23 2153 01/30/23 0015 01/30/23 0357 ALKPHOS 195* 135* 113* 108* [...] results found for: PHARTERIAL , PO2ART , QKY8CQD , AGY9URY , BASEEXCESS , SO2ABG Central VBG: No results found for: PHMIXEDVEN , QW2FCKRVJK , VCC4FOYTKD , WFI7XCGXK , TM5VDQH Lactic acid: Lab Results Component Value Date/Time [...] 150, mod variability, -accels, intermittent spontaneous decels [place]: silent BSUS 01/29/23: vertex, CLARA 9.20cm, MVP [...] 01/29/23: vertex, CLARA 9.20cm, MVP 3.33cm - [facility] US 01/25: ceph, CLARA 17.4cm, MVP 8.3cm, NST reactive - [facility] US 01/21: ceph, EFW 2585g (89%), AC [...] ICU management Laura Salazar MD PGY3 OBGYN [phone] * Rita Roberts RN - 01/30/2023 6:33 [...] Aguiar RN - 01/29/2023 10:03 PM CDT [facility] Sepsis Surveillance note (A positive vSepsis [...] - Yes (Within time frame) (01/29/232114) The [facility] Sepsis team has notified the Bedside Team, via secure chat and discussed the above. Please call [facility] Sepsis if any assistance is needed. Please call [facility] Sepsis if the patient is not septic and the sepsis alert needs to be cancelled. [facility] Sepsis Hanna Aguiar RN * Rita Roberts RN - 01/29/2023 9:42 PM CDT Patient transferred to ICU, report given to MARY Glynn. This RN assuming care * Rita Roberts RN - 01/29/2023 9:11 PM CDT Lab draw unsuccessful, to send another wastewater technician at this time. * Rita Roberts RN - 01/29/2023 8:55 PM CDT Lab here at this time to collect labs * Rita Roberts RN - 01/29/2023 7:58 PM CDT Pardeep, PGY2 made aware of dark brown color to [...] is a 27 y.o. female currently in 7220/ who was admitted 01/29/2023 4:04 PM.The pharmacy [...] participate in the care of this patient. DENIS Velasquez 01/29/2023 7:07 PM * Rita Roberts RN - 01/29/2023 6:36 PM CDT MARY Byrd received call from lab to confirm that patient is lab collect. MARY Byrd confirmed at this time. Lab to send a dairy lab technician for labs. * Rochelle Orellana RN - 01/29/2023 5:20 PM CDT 1614 - Admitted to [facility] via wheelchair from [facility], patient's mother by side. EFM and toco applied, on left side. Patient responding vaguely and softly to questions and commands. Mother states she had not been feeling well on Wednesday with lower back pain and decreased movement, seen at [facility] then discharged. Vomiting and weakness started on Wednesday, better yesterday, and seen in OB's office for normal visit with ketones in urine on . Ate ice chips this morning and able to shower then progressively weakened throughout the day. Patient denies bleeding or leaking fluid today, but has not felt movement. Jessi-op runner out at bedside. POC in WC 134. Patient tachypnic and tachycardic. OB Rapid Response initiated at 1626. Anesthesia, Dr Morley, and Marcia Marquez PGY-R4 at bedside to assess patient. Orders received for labs and IV fluids. Due to difficult IV start, IV started utilizing ultrasound and labs drawn per anesthesia. Epic admission completed. 1715 - POC glucose 134. Patient resting with [...] the case of insulin pump failure. Notify [facility] DM team LUPE if pump fails 10 mL 1 Insulin Syringe-Needle U-100 0.3 mL 31 gauge x 5/16 Syringe To be used to inject insulin 5-8 timesdaily in the case of insulin pump failure. Notify [facility] DM team LUPE if pump fails [...] atraumatic Data Review: BMP: Recent Labs 01/29/23 170 GLUCOSE 139* BUN 7 CREAT 0.65 NA 134* K 4.3 CL 100 CO2 7* ANIONGAP 27* estimated creatinine clearance is 123.8 mL/min (by C-G formula based on SCr of 0.65 mg/dL). LFTs: Recent Labs 01/29/231702 ALKPHOS 195* ALT 10 AST 15 BILITOTAL 0.8 ALBUMIN 5.4* CBC: Recent Labs 01/29/23170201/29/23 2153 WBC 20.2* 18.5* HGB 12.7 10.9* HCT 42.2 35.5 PLT 487* 422* MCV 84.1 83.5 Coagulation: No results for input(s): PT , INR , APTT in the last 72 hours. ABG: No results found for: PHARTERIAL , GWM6ZZU , PO2ART , SDV1HKT , BASEEXCESS , SO2ABG Central VBG: No results found for: PHMIXEDVEN , WF0YNSHFOK , MYT3GSXPOB , SXC9ORROQ , LF8DWAV Lactic acid: Lab Results Component Value Date/Time [...] Musculoskeletal/Skin: [facility] at [facility]W OB following (M Dr. Ned morgankenrocky) No suspicion for pre-eclampsia at this time [...] pump and Dexcom CGM. She follows with [facility]. Her insulin regimen was adjusted 01/20. She [...] Hx RPL Her primary OB is at [facility]. ROS: As above. 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 Notify [facility] DM team LUPE if pump fails 10 mL 1 Insulin Syringe-Needle U-100 0.3 mL 31 gauge x 5/16 Syringe To be used to inject insulin 5-8 timesdaily in the case of insulin pump failure. Notify [facility] DM team LUPE if pump fails [...] mod variability, no accels, int spontaneous decels [place]: silent BSUS 01/29/23: vertex, CLARA 9.20cm, MVP [...] with Dr. Morley. Erinn Roberto MD PGY-2 COMMUNICATIONS ATTENDANT Pager: PGY-2 Pager: documented in this encounter Consult Notes * Elvi Street RN - 02/09/2023 10:22 AM CDTAssociated Order(s): IP CONSULT TO SHAFTING WORKER Diabetes Type: Type 1 A1C: 5.7 BG Monitoring Supplies(glucometer, strips, lancets): CGM - Dexcom - Currently off BG Monitoring Education: Completed Insulin Education: Completed Diabetes Management Education: Completed Diet and Exercise: Completed Regimen/Anticipated Regimen: Basal/Bolus Barriers to Diabetes Management: None PLEASE have discharge medications filled at [facility]! Reason for consult: Review of Skills/Education [...] Strips, alcohol swabs, BD Ultra-Fine Mally Pen [place] 32x5/32, Lantus Solostar Insulin Pens, and Humalog [...] Effects, Methods of Action Insulin and Administration: Care Home Insulin Use Monitoring: ADA/AACE Target BG Guidelines, A1C, CGM, Ketone testing Diet and Exercise: ADA/AADE Recommended carb targets, Snacking, Common food choices and carb content, ADA/AADE Recommended activity Complications: Hypoglycemia: Symptoms, Rule of 15, Glucose Tablets, Possible causes, When to call the doctor, Strategies to prevent Hyperglycemia: Symptoms, Treatment, Possible Causes, When to call the doctor, Strategies to prevent Care Home: Cardiovascular, Stroke, Neuropathy, Gastroparesis - Autonomic Neuropathy [...] for illness lasting more than 24 hours. [facility] Diabetes Educators [phone] (Wednesday-Wednesday 7:30 AM-5:30 PM) Thank you for allowing us to participate in the care of this patient. Elvi Street MA, BSN, RN Nurse Clinician Diabetes Services Office: [phone] Pager: [phone] * Cindi Tinajero RN - 02/03/2023 4:49 [...] 2:59 PM CDT CLINICAL DIETITIAN PROGRESS NOTE [facility] Follow Up Nutrition Assessment Pt is [...] Discussed carb counts - pt works with [facility] outpatient, missed December appointment. Breakfast- 15-30 [...] is 30 kg/m??. Last Bowel Movement (mm/dd/yyyy): (PAPER LATCHER) (01/31/23 0400) Nutrition Prescription: DIET SUPPLEMENT GEN [...] TO NUTRITION SERVICES CLINICAL DIETITIAN PROGRESS NOTE [facility] Nutrition Consult : Hyperglycemia pathway 34w3d [...] 1640) Body mass index is 30 kg/m??. [place] body weight: 50.1 kg (110 lb 7.2 [...] AM No results found for: HGBA1C , [id number] Pert Meds: lactated ringers, zosyn Food Allergies: [...] and as needed. Judith Allen RD, LD [phone] (office) [phone] (phone) Epic Secure Chat * Zbigniew Marino MD - 01/29/2023 7:13 PM CDTAssociated Order(s): IP CONSULT TO PERINATOLOGY Images from the original note were not included. [facility] Maternal Medicine Perinatology Consultation 01/29/2023 7:13 [...] pump and Dexcom CGM. She follows with [facility]. Her insulin regimen was adjusted 01/20. 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 [...] the case of insulin pump failure. Notify [facility] DM team LUPE if pump fails 10 mL 1 Insulin Syringe-Needle U-100 0.3 mL 31 gauge x 5/16 Syringe To be used to inject insulin 5-8 timesdaily in the case of insulin pump failure. Notify [facility] DM team LUPE if pump fails [...] mod variability, no accels, int spontaneous decels [place]: silent Diabetes Checklist - Diagnosed at 13 [...] (08/2022) - 24hr TUP 407 baseline per [facility] - Glucose 120s-130s - Humalog pump + [...] neg, RPR neg Discussed with Dr. Marino, [facility] Plan: - Continue fluid resuscitation with 2L additional LR, then LR with K at 250cc/hr - Repeat CBC, CMP, LA q4hrs - Follow up blood cultures, LDH, LA, uric acid - Monitor blood pressure - Continue Vanc/Zosyn - Consult ICU Fellow Erinn Roberto MD PGY-2 COMMUNICATIONS ATTENDANT Pager: PGY-2 Pager: [facility] Attending Addendum: The patient was seen and evaluated by myself and the resident/REGULATORY COMPLIANCE ENGINEER. Agree with the findings and plan as documented above. All pertinent questions addressed and answered. Chief Complaint: complicated by the aforementioned concerns (DM type I, DKA). Primary OB: Dr. Velazquez Personally saw and evaluated Ms. Menjivar on the morning of 01/30/2023 with 23 hours of consultation. Iwas consulted by Dr. Morley, OB hospitalist. Ms. Menjivar's primary face hardener is Dr. Velazquez. Ms. Menjivar was resting [...] features 7. Recurrent Loss Post-operative Diagnosis: same Business Communications Instructor: Zbigniew Marino MD Surgeon: Enrico Casillas MD Dye Can Operator: Kelli Flores MD Anesthesia: spinal QBL: 550 mL Urine Output: clear urine in [place]za bag after procedure Specimen(s): Placenta for pathology Antibiotics: 2g Ancef Operative Complications: none Uterotonics given: None Indications: Please see pre-op diagnosis above, H&P and most recent progress notes for further details. Findings: Gestational Age: 35w5d Date of Delivery: 02/07/2023 Time of Delivery: 5:28 AM Sex: Female Delivery Type: , Low Transverse [...] was extended digitally in the cephalad-caudad position. was delivered as noted in the findings above. The umbilical cord was doubly clamped and cut & the was handed to the nurse. The placenta [...] recovery in stable condition. Aura Flores MD COMMUNICATIONS ATTENDANT Resident, PGY-4 Pager #: [phone] Uncomplicated. We operated as co-surgeons throughout. Enrico [...] side when LC arrived. Mom reports a Solar Crew Member is to see her to discuss diet [...] of effective milk transfer, and satiety. Reviewed swad-rl-cugl benefits. Reviewed diet and nutrition for mom. A: progressing with easy latching at this time. P: Breastfeed baby with all feeding cues or at least every 2-3 hours, with 8-12 feedings in 24 hours. Supplement as ordered. Follow HCP instructions. Pump with some feedings while supplementing. Increase eakn-ap-mfvf time between feedings to stimulate feeding cues. [...] UO adequate. Pt showered this shift. Incision SUPERVISOR HOME ENERGY CONSULTANT C/D/I. * Care Plan - Jazmin Steele [...] RN, BSN, CLC * Care Plan - SharaIsaura LMSW - 02/07/2023 6:29 PM CDT Social work consult received due to patient???s [place] score. SW met with pt alone to discuss score [...] suicidal ideation. Patient???s support network includes FOB. SW educated patient on signs/symptoms of PPD and recommended that she also review these with a trusted loved one and give them permission to speak with patient should they notice her exhibiting symptoms. ALONDRA also provided a list of counselors in the [place] area who are qualified to treat PPD [...] MENJIVAR, Baby (Astrid Maza) will reside at [address] [place] [address] with MOB and FOB at discharge. Father of Baby is involved. Prior to , family involved with no services in home. Mother of baby has WIC. Mother of baby does not have Food [place]. SW provided a SNAP application per pt request. Mother of baby has breast pump. Family has a crib. Family has a car seat. Waste Water Worker verified as: MOB has not yet decided [...] work has completed the consult for the [place] score and provided post resources. There are no further concerns needing to be addressed at this time. Baby can discharge home with MOB once medically cleared. Isaura Olmedo LMSW, 02/07/2023 6:29 PM [id number] Problem: Discharge Planning Goal: Identify discharge needs [...] hours; demonstrates effective latch. Outcome: Met Maternal Infant Attachment: Maternal Infant Attachment: Displays maternal attachment behaviors as evidenced by participating in care, participating in learning care, holding , speaking to infant. Outcome: Met Reproductive: Lochia Rubra with absent [...] baby's chart. Note: S: consult per pathway, order, mother's request, first time mom. PatientComplaint: infant concerns: near term, low BS, mom typeI DM, OBJECTIVE: Mom states her goal is to breastfeed her baby. BFHx: G1 had bad experience w/ LC and gave up [id number] Baker was born 02/07/2023 5:28 AM. Gestational Age: 35w5d . Last documented Weight: 3130 g (6 lb 14.4 oz) (Filed from Delivery Summary) (02/07/23 0528). This is a change of 0% from the 's weight. .Attending provider: Georges Rehman MD Patient Active Problem List Diagnosis Code Single liveborn, born in hospital, delivered by section Z38.01 P07.30 Patient Active Problem List Diagnosis Code [...] E87.29 Mild pre-eclampsia in third trimester O14.03 's Labs: Serum BS earlier today was 6 as well as grunting and tachypnea Lab Results Component Value Date GLUCPOC 62 02/07/2023 Baby has been lethargic and easily falls asleep and tires at breast. Started mom pumping 8x/24 hours emphasizing not to skip night pumps, was able to get a few drops at 11 hrs of age. Urine Output: yes and see /Peds I/O Flowsheet Shield Size: 20mm was given to mom in case needed it. Given andreviewed handouts from [place] [employer]: How [...] with 8-12 feedings in 24 hours. Increase zuog-av-hunk time between feedings to stimulate feeding cues. Keep a diary of feedings and diapers. Reviewed ways to get continued assistance with [facility] Services. Encouraged to attend Breast feeding [...] because of medications (i.e. - BP meds, CV/BUSINESS MANAGEMENT PROFESSOR meds, seizure meds, diuretics, pain meds, psych [...] function Outcome: Progressing * Care Plan - ChavarriaAydendavid Roy, LINOLEUM FLOOR INSTALLER - 02/01/2023 12:03 PM CDT Care Management Initial Assessment Initial Discharge Planning Assessment completed. Discussed Care Management's role and Discharge planning. Discharge Plan: Home, no needs. Does the patient have family and/or a caregiver that is willing, able and available to assist if needed? Yes - Name/Relation:Karen Menjivar, mother Comments: Pt is followed by MFM. Pt will follow up with primary OB, Fidel Hair MD in [place], [place]. Patient Discharge Planning Goal: Medical stability [...] Emergency Contact Information Primary Emergency Contact: Karen Baker Mobile Relation: Mother Preferred language: Kiswahili Robotic Weld Technician needed? No Insurance coverage verified: Payor: MEDICAID / Plan: [place]ICAID [place] / Product Type: Medicaid / Prescription coverage: yes Preferred Pharmacy verified: [id number] [place] [address] [address] [facility] Employment Status: not employed Has VA Benefits: no PCP verified as: No primary care provider on file. Pt reports her PCP is with [facility] in [place], [place], but does not remember his name. Patient has not had a stay at an acute care hospital in the last 30 days. Recent Falls?: Last Known Fall: No falls Plan for transportation at discharge: Mother or fiance. Care Management contact information provided. Care Management will continue to follow and assist asneeded. Delia Chavarria, LINOLEUM FLOOR INSTALLER Inpatient Thermal Spray Operator I [phone] Problem: Discharge Planning Goal: Identify discharge needs [...] a VM asking for a call back. ALONDRA/ALEXANDR will continue to follow. Isaura Olmedo LMSW, 01/30/2023 3:47 PM [id number] Problem: Discharge Planning Goal: Identify discharge needs [...] bedpan Skin: undress and assess per Gretta Maciel and Leyla MACIEL Patient Goals Met: remains safe this shift [...] from the original note were not included. ST [facility] Vaginal Protocol [facility] Approved by: [facility] - Medical Executive Committee Approval Date: 09/17/2022 ORDERS ARE ENTERED ???PER PROTOCOL?? Follow this protocol for all induction, augmentation and spontaneous labor patients. Enter the protocol in the patient's electronic health record using Rootlessrase: .vaginalbirthprotocol Orders for Care at Initial Presentation: [...] positive or Rh negative CBC without differential (QNN631) on every patient admitted to Labor & Type and screen (LUS528); unless patient is identified as high risk via the Hemorrhage Risk Assessment, then obtain: type and screen (ULC842), prepare and hold ([id number]) Medication Orders If not already in place, [...] Labor: Type and screen CBC with differentia JESSICA PERDUE Adult Influenza and Pneumococcal Vaccine Protocol [facility] Approved by: [facility] Executive Committee Approval Date: 03/19/2022 ORDERS ARE [...] one time (If available within hospital pharmacy) [facility] Pre-operative Protocol [facility] Approved by: [facility] [place] - Medical Executive Committee Approval Date: 09/17/2022 ORDERS ARE ENTERED ???PER PROTOCOL?? Follow this protocol for all section patients (scheduled and unscheduled). Enter the protocol in the patient's electronic health record using Rootlessrase: .cesareanbirthprotocol Nursing Orders: Initiate the Pathway Notify physician upon admission In-patient anesthesia consult Complete hemorrhage risk assessment on admission. See [facility] PPH Procedure Guidelines Full Code Vital signs [...] level, for High risk- type and screen (BMD561), prepare and hold ([id number]) CBC with differential (Manual differential will be [...] mg, IV, ONE-time PRN after physician consultation [facility] Pre-operative Protocol [facility] Approved by: [facility] - Medical Executive Committee Approval Date: 09/17/2022 ORDERS ARE ENTERED ???PER PROTOCOL?? Follow this protocol for all section patients (scheduled and unscheduled). Enter the protocol in the patient's electronic health record using Rootlessrase: .cesareanbirthprotocol Nursing Orders: Initiate the Pathway Notify physician upon admission In-patient anesthesia consult Complete hemorrhage risk assessment on admission. See [facility] PPH Procedure Guidelines Full Code Vital [...] level, for High risk- type and screen (WPY438), prepare and hold ([id number]) CBC with differential (Manual differential will be [...] - 99 mg/dL 02/13/2023 10:12 AM CDT [facility] SPECIMEN SOURCE, GLUCOSE POC Whole Blood 02/13/2023 10:12 AM CDT [facility] Blood, whole 02/13/2023 10:1 2 AM CDT 02/13/2023 10:27 AM CDT Zbigniew Marino MD POINT OF CARE TEST ING [facility] Justyle [facility] CLIA# [id number] [address] [place] [address] * (ABNORMAL) POC GLUCOSE (02/13/2023 9:19 AM CDT) GLUCOSE POC 173(H) 74 - 99 mg/dL 02/13/2023 9:19 AM CDT [facility] LABORATORY [facility] SPECIMEN SOURCE, GLUCOSE POC Whole Blood 02/13/2023 9:19 AM CDT [facility] Blood, whole 02/13/2023 9:19 AM CDT 02/13/2023 9:35 AM CDT Zbigniew Marino MD POINT OF CARE TEST ING [facility] Justyle [facility] CLIA# [id number] [address] [place] [address] * (ABNORMAL) POC GLUCOSE (02/13/2023 5:49 AM CDT) GLUCOSE POC 130(H) 74 - 99 mg/dL 02/13/2023 5:49 AM CDT [employer] LABORATORY SERVICES - [facility] SPECIMEN SOURCE, GLUCOSE POC Whole Blood 02/13/2023 5:49 AM CDT [employer] LABORATORY SERVICES - [facility] Blood, whole 02/13/2023 5:49 AM CDT 02/13/2023 5:57 AM CDT Zbigniew Marino MD POINT OF CARE TEST ING Performing Organization Address [facility]/ZIP Co de Phone Number [facility] Justyle [facility] CLIA# [id number] [address] [place] [address] * (ABNORMAL) POC GLUCOSE (02/13/2023 1:55 AM CDT) GLUCOSE POC 162(H) 74 - 99 mg/dL 02/13/2023 1:55 AM CDT [employer] LABORATORY SERVICES - [facility] SPECIMEN SOURCE, GLUCOSE POC Whole Blood 02/13/2023 1:55 AM CDT [employer] LABORATORY SERVICES - [facility] Blood, whole 02/13/2023 1:55 AM CDT 02/13/2023 2:02 AM CDT Zbigniew Marino MD POINT OF CARE TEST ING [facility] Justyle [facility] CLIA# [id number] [address] [place] [address] * (ABNORMAL) POC GLUCOSE (02/13/2023 12:33 AM CDT) GLUCOSE POC 152(H) 74 - 99 mg/dL 02/13/2023 12:33 AM CDT [employer] LABORATORY SERVICES - [facility] SPECIMEN SOURCE, GLUCOSE POC Whole Blood 02/13/2023 12:33 AM CDT [employer] LABORATORY SERVICES - [facility] Blood, whole 02/13/2023 12:3 3 AM CDT 02/13/2023 12:41 AM CDT Zbginiew Marino MD POINT OF CARE TEST ING [facility] Justyle [facility] CLIA# [id number] [address] [place] [address] * (ABNORMAL) POC GLUCOSE (02/13/2023 12:03 AM CDT) GLUCOSE POC 129(H) 74 - 99 mg/dL 02/13/2023 12:03 AM CDT [employer] LABORATORY SERVICES - [facility] SPECIMEN SOURCE, GLUCOSE POC Whole Blood 02/13/2023 12:03 AM CDT [facility] Blood, whole 02/13/2023 12:0 3 AM CDT 02/13/2023 12:11 AM CDT Zbigniew Marino MD POINT OF CARE TEST ING Performing Organization Address City/[facility]/ZIP Co de Phone Number [facility] Justyle [facility] CLIA# [id number] [address] [place] [address] * (ABNORMAL) POC GLUCOSE (02/12/2023 11:30 PM CDT) GLUCOSE POC 127(H) 74 - 99 mg/dL 02/12/2023 11:30 PM CDT [facility] - [facility] SPECIMEN SOURCE, GLUCOSE POC Whole Blood 02/12/2023 11:30 PM CDT [employer] LABORATORY SERVICES [facility] Blood, whole 02/12/2023 11:3 0 PM CDT 02/12/2023 11:38 PM CDT Zbigniew Marino MD POINT OF CARE TEST ING [facility] LABORATORY [facility] CLIA# [id number] [address] [place] [address] * POC GLUCOSE (02/12/2023 10:54 PM CDT) GLUCOSE POC 78 74 - 99 mg/dL 02/12/2023 10:54 PM CDT [facility] LABORATORY SERVICES - [facility] SPECIMEN SOURCE, GLUCOSE POC Whole Blood 02/12/2023 10:54 PM CDT [facility] LABORATORY SERVICES - [facility] Blood, whole 02/12/2023 10:5 4 PM CDT 02/12/2023 11:01 PM CDT Zbigniew Marino MD POINT OF CARE TEST ING [facility] LABORATORY [facility] CLIA# [id number] [address] [place] [address] * (ABNORMAL) POC GLUCOSE (02/12/2023 10:24 PM CDT) GLUCOSE POC 62(L) 74 - 99 mg/dL 02/12/2023 10:24 PM CDT [facility] LABORATORY SERVICES - [facility] SPECIMEN SOURCE, GLUCOSE POC Whole Blood 02/12/2023 10:24 PM CDT [facility] LABORATORY SERVICES - [facility] COMMENT, GLU POC Notified RN/MD 02/12/2023 10:24 PM CDT [facility] LABORATORY SERVICES - [facility] Blood, whole 02/12/2023 10:2 4 PM CDT 02/12/2023 10:33 PM CDT Zbigniew Marino MD POINT OF CARE TEST ING [facility] Justyle [facility] CLIA# [id number] [address] [place] [address] * (ABNORMAL) POC GLUCOSE (02/12/2023 10:03 PM CDT) GLUCOSE POC 67(L) 74 - 99 mg/dL 02/12/2023 10:03 PM CDT [facility] LABORATORY SERVICES - [facility] SPECIMEN SOURCE, GLUCOSE POC Whole Blood 02/12/2023 10:03 PM CDT [facility] LABORATORY SERVICES - [facility] COMMENT, GLU POC Notified RN/MD 02/12/2023 10:03 PM CDT [facility] LABORATORY SERVICES - [facility] Blood, whole 02/12/2023 10:0 3 PM CDT 02/12/2023 10:12 PM CDT Zbigniew Marino MD POINT OF CARE TEST ING [facility] CLIA# [id number] [address] [place] [address] * (ABNORMAL) POC GLUCOSE (02/12/2023 8:04 PM CDT) GLUCOSE POC 203(H) 74 - 99 mg/dL 02/12/2023 8:04 PM CDT [facility] LABORATORY SERVICES - [facility] SPECIMEN SOURCE, GLUCOSE POC Whole Blood 02/12/2023 8:04 PM CDT [facility] LABORATORY [facility] - [facility] Blood, whole 02/12/2023 8:04 PM CDT 02/12/2023 8:12 PM CDT Zbigniew Marino MD POINT OF CARE TEST ING [facility] CLIA# [id number] [address] [address] * POC GLUCOSE (02/12/2023 4:15 PM CDT) GLUCOSE POC 96 74 - 99 mg/dL 02/12/2023 4:15 PM CDT [facility] LABORATORY SERVICES - [facility] SPECIMEN SOURCE, GLUCOSE POC Whole Blood 02/12/2023 4:15 PM CDT [facility] LABORATORY SERVICES - [facility] Blood, whole 02/12/2023 4:15 PM CDT 02/12/2023 4:23 PM CDT Zbigniew Marino MD POINT OF CARE TEST ING [facility] Justyle [facility] CLIA# [id number] [address] [place] [address] * (ABNORMAL) POC GLUCOSE (02/12/2023 2:10 PM CDT) GLUCOSE POC 177(H) 74 - 99 mg/dL 02/12/2023 2:10 PM CDT [employer] LABORATORY SERVICES - [facility] SPECIMEN SOURCE, GLUCOSE POC Whole Blood 02/12/2023 2:10 PM CDT [employer] LABORATORY SERVICES - [facility] COMMENT, GLU POC Notified RN/MD 02/12/2023 2:10 PM CDT [facility] - [facility] Blood, whole 02/12/2023 2:10 PM CDT 02/12/2023 2:18 PM CDT Zbigniew Marino MD POINT OF CARE TEST ING Performing Organization Address [facility]/ZIP Co de Phone Number [facility] Justyle [facility] CLIA# [id number] [address] [place] [address] * (ABNORMAL) POC GLUCOSE (02/12/2023 11:56 AM CDT) GLUCOSE POC 155(H) 74 - 99 mg/dL 02/12/2023 11:56 AM CDT [facility] - [facility] SPECIMEN SOURCE, GLUCOSE POC Whole Blood 02/12/2023 11:56 AM CDT [employer] LABORATORY SERVICES [facility] Blood, whole 02/12/2023 11:5 6 AM CDT 02/12/2023 12:10 PM CDT Zbigniew Marino MD POINT OF CARE TEST ING [facility] LABORATORY [facility] CLIA# [id number] [address] [place] [address] * (ABNORMAL) POC GLUCOSE (02/12/2023 9:35 AM CDT) GLUCOSE POC 252(H) 74 - 99 mg/dL 02/12/2023 9:35 AM CDT [facility] SPECIMEN SOURCE, GLUCOSE POC Whole Blood 02/12/2023 9:35 AM CDT [facility] LABORATORY SERVICES - [facility] COMMENT, GLU POC Notified RN/MD 02/12/2023 9:35 AM CDT [facility] LABORATORY SERVICES - [facility] Blood, whole 02/12/2023 9:35 AM CDT 02/12/2023 9:57 AM CDT Zbigniew Marino MD POINT OF CARE TEST ING Performing Organization Address [facility]/ZIP Co de Phone Number [facility] Justyle [facility] CLIA# [id number] [address] [place] [address] * (ABNORMAL) POC GLUCOSE (02/12/2023 4:59 AM CDT) GLUCOSE POC 212(H) 74 - 99 mg/dL 02/12/2023 4:59 AM CDT [facility] SPECIMEN SOURCE, GLUCOSE POC Whole Blood 02/12/2023 4:59 AM CDT [facility] Blood, whole 02/12/2023 4:59 AM CDT 02/12/2023 5:10 AM CDT Zbigniew Marino MD POINT OF CARE TEST ING Performing Organization Address [facility]/ZIP Co de Phone Number [facility] CLIA# [id number] [address] [place] [address] * (ABNORMAL) POC GLUCOSE (02/12/2023 2:32 AM CDT) GLUCOSE POC 137(H) 74 - 99 mg/dL 02/12/2023 2:32 AM CDT [facility] SPECIMEN SOURCE, GLUCOSE POC Whole Blood 02/12/2023 2:32 AM CDT [facility] LABORATORY SERVICES [facility] Blood, whole 02/12/2023 2:32 AM CDT 02/12/2023 2:49 AM CDT Zbigniew Marino MD POINT OF CARE TEST ING [facility] CLIA# [id number] [address] [place] [address] * (ABNORMAL) POC GLUCOSE (02/11/2023 10:28 PM CDT) GLUCOSE POC 109(H) 74 - 99 mg/dL 02/11/2023 10:28 PM CDT [facility] SPECIMEN SOURCE, GLUCOSE POC Whole Blood 02/11/2023 10:28 PM CDT [facility] LABORATORY [facility] Blood, whole 02/11/2023 10:2 8 PM CDT 02/11/2023 10:40 PM CDT Zbigniew Marino MD POINT OF CARE TEST ING Performing Organization Address City/[facility]/ZIP Co de Phone Number [facility] CLIA# [id number] [address] [place] [address] * (ABNORMAL) POC GLUCOSE (02/11/2023 8:35 PM CDT) GLUCOSE POC 131(H) 74 - 99 mg/dL 02/11/2023 8:35 PM CDT [facility] SPECIMEN SOURCE, GLUCOSE POC Whole Blood 02/11/2023 8:35 PM CDT [facility] LABORATORY [facility] Blood, whole 02/11/2023 8:35 PM CDT 02/11/2023 9:34 PM CDT Zbigniew Marino MD POINT OF CARE TEST ING [facility]# [id number] [address] [place] [address] * (ABNORMAL) POC GLUCOSE (02/11/2023 6:28 PM CDT) GLUCOSE POC 181(H) 74 - 99 mg/dL 02/11/2023 6:28 PM CDT [facility] LABORATORY SERVICES - [facility] SPECIMEN SOURCE, GLUCOSE POC Whole Blood 02/11/2023 6:28 PM CDT [facility] LABORATORY SERVICES - [facility] Blood, whole 02/11/2023 6:28 PM CDT 02/11/2023 6:43 PM CDT Zbigniew Marino MD POINT OF CARE TEST ING Performing Organization Address [facility]/ZIP Co de Phone Number [facility] CLIA# [id number] [address] [place] [address] * (ABNORMAL) POC GLUCOSE (02/11/2023 2:58 PM CDT) GLUCOSE POC 229(H) 74 - 99 mg/dL 02/11/2023 2:58 PM CDT [facility] LAB[facility]ORY [facility] SPECIMEN SOURCE, GLUCOSE POC Whole Blood 02/11/2023 2:58 PM CDT [facility] Blood, whole 02/11/2023 2:58 PM CDT 02/11/2023 3:13 PM CDT Zbigniew Marino MD POINT OF CARE TEST ING [facility] CLIA# [id number] [address] [place] [address] * (ABNORMAL) POC GLUCOSE (02/11/2023 1:39 PM CDT) GLUCOSE POC 307(H) 74 - 99 mg/dL 02/11/2023 1:39 PM CDT [facility] LABORATORY SERVICES [facility] SPECIMEN SOURCE, GLUCOSE POC Whole Blood 02/11/2023 1:39 PM CDT [facility] LABORATORY SERVICES - [facility] COMMENT, GLU POC Notified RN/MD 02/11/2023 1:39 PM CDT [facility] LABORATORY SERVICES - [facility] Blood, whole 02/11/2023 1:39 PM CDT 02/11/2023 1:54 PM CDT Zbigniew Marino MD POINT OF CARE TEST ING Performing Organization Address [facility] Co de Phone Number [facility] CLIA# [id number] [address] [place] [address] * (ABNORMAL) POC GLUCOSE (02/11/2023 11:15 AM CDT) GLUCOSE POC 339(H) 74 - 99 mg/dL 02/11/2023 11:15 AM CDT [facility] LABORATORY SERVICES - [facility] SPECIMEN SOURCE, GLUCOSE POC Whole Blood 02/11/2023 11:15 AM CDT [facility] LABORATORY SERVICES [facility] COMMENT, GLU POC Notified RN/ 02/11/2023 11:15 AM CDT [facility] LABORATORY SERVICES [facility] Blood, whole 02/11/2023 11:1 5 AM CDT 02/11/2023 11:38 AM CDT Zbigniew Marino MD POINT OF CARE TEST ING Performing Organization Address [facility] Co de Phone Number [facility] CLIA# [id number] [address] [address] * (ABNORMAL) POC GLUCOSE (02/11/2023 9:43 AM CDT) GLUCOSE POC 256(H) 74 - 99 mg/dL 02/11/2023 9:43 AM CDT [facility] LABORATORY SERVICES [facility] SPECIMEN SOURCE, GLUCOSE POC Whole Blood 02/11/2023 9:43 AM CDT [facility] LABORATORY SERVICES [facility] Blood, whole 02/11/2023 9:43 AM CDT 02/11/2023 10:00 AM CDT Zbigniew Marino MD POINT OF CARE TEST ING Performing Organization Address City/[facility]/ZIP Co de Phone Number [facility] CLIA# [id number] [address] [place] [address] * (ABNORMAL) POC GLUCOSE (02/11/2023 5:09 AM CDT) GLUCOSE POC 353(H) 74 - 99 mg/dL 02/11/2023 5:09 AM CDT [facility] LABORATORY SERVICES - [facility] SPECIMEN SOURCE, GLUCOSE POC Whole Blood 02/11/2023 5:09 AM CDT [facility] COMMENT, GLU POC Notified RN/MD 02/11/2023 5:09 AM CDT [facility] LABORATORY SERVICES [facility] Blood, whole 02/11/2023 5:09 AM CDT 02/11/2023 5:28 AM CDT Zbigniew Marino MD POINT OF CARE TEST ING Performing Organization Address [facility] Co de Phone Number [facility] CLIA# [id number] [address] [place] [address] * (ABNORMAL) POC GLUCOSE (02/11/2023 2:10 AM CDT) GLUCOSE POC 318(H) 74 - 99 mg/dL 02/11/2023 2:10 AM CDT [facility] SPECIMEN SOURCE, GLUCOSE POC Whole Blood 02/11/2023 2:10 AM CDT [facility] LABORATORY SERVICES [facility] COMMENT, GLU POC Notified RN/MD 02/11/2023 2:10 AM CDT [facility] Blood, whole 02/11/2023 2:10 AM CDT 02/11/2023 2:21 AM CDT Zbigniew Marino MD POINT OF CARE TEST ING [facility] CLIA# [id number] [address] [place] [address] * (ABNORMAL) POC GLUCOSE (02/10/2023 10:09 PM CDT) GLUCOSE POC 364(H) 74 - 99 mg/dL 02/10/2023 10:09 PM CDT [facility] LABORATORY SERVICES - [facility] SPECIMEN SOURCE, GLUCOSE POC Whole Blood 02/10/2023 10:09 PM CDT [facility] LABORATORY SERVICES [facility] COMMENT, GLU POC Notified RN/MD 02/10/2023 10:09 PM CDT [facility] LAB[facility]ORY [facility] Blood, whole 02/10/2023 10:0 9 PM CDT 02/10/2023 10:19 PM CDT Zbigniew Marino MD POINT OF CARE TEST ING Performing Organization Address [facility]/ZIP Co de Phone Number [facility] CLIA# [id number] [address] [place] [address] * (ABNORMAL) POC GLUCOSE (02/10/2023 7:59 PM CDT) GLUCOSE POC 247(H) 74 - 99 mg/dL 02/10/2023 7:59 PM CDT [facility] LABORATORY [facility] SPECIMEN SOURCE, GLUCOSE POC Whole Blood 02/10/2023 7:59 PM CDT [facility] LAB[facility] Blood, whole 02/10/2023 7:59 PM CDT 02/10/2023 8:28 PM CDT Zbigniew Marino MD POINT OF CARE TEST ING [facility] CLIA# [id number] [address] [place] [address] * (ABNORMAL) POC GLUCOSE (02/10/2023 7:03 PM CDT) GLUCOSE POC 214(H) 74 - 99 mg/dL 02/10/2023 7:03 PM CDT [facility] LAB[facility]ATORY [facility] SPECIMEN SOURCE, GLUCOSE POC Whole Blood 02/10/2023 7:03 PM CDT [facility] LABORATORY SERVICES - [facility] Blood, whole 02/10/2023 7:03 PM CDT 02/10/2023 7:16 PM CDT Zbigniew Marino MD POINT OF CARE TEST ING [facility] CLIA# [id number] [address] [place] [address] * (ABNORMAL) POC GLUCOSE (02/10/2023 3:53 PM CDT) GLUCOSE POC 137(H) 74 - 99 mg/dL 02/10/2023 3:53 PM CDT [facility] LAB[facility]ORY [facility] SPECIMEN SOURCE, GLUCOSE POC Whole Blood 02/10/2023 3:53 PM CDT [facility] LAB[facility] Blood, whole 02/10/2023 3:53 PM CDT 02/10/2023 4:03 PM CDT Zbigniew Marino MD POINT OF CARE TEST ING [facility] CLVT# [id number] [address] [place] [address] * (ABNORMAL) POC GLUCOSE (02/10/2023 2:26 PM CDT) GLUCOSE POC 131(H) 74 - 99 mg/dL 02/10/2023 2:26 PM CDT [facility] LABORATORY SERVICES - [facility] SPECIMEN SOURCE, GLUCOSE POC Whole Blood 02/10/2023 2:26 PM CDT [facility] LABORATORY SERVICES - [facility] Blood, whole 02/10/2023 2:26 PM CDT 02/10/2023 2:37 PM CDT Zbigniew Marino MD POINT OF CARE TEST ING [facility] Just[facility]# [id number] [address] [place] [address] * TELEMETRY REPORT (02/10/2023 11:53 AM CDT) Provider Scanning ECG ORDERABLES * (ABNORMAL) POC GLUCOSE (02/10/2023 11:11 AM CDT) GLUCOSE POC 314(H) 74 - 99 mg/dL 02/10/2023 11:11 AM CDT [facility] SPECIMEN SOURCE, GLUCOSE POC Whole Blood 02/10/2023 11:11 AM CDT [facility] LABORATORY SERVICES [facility] COMMENT, GLU POC Notified RN/MD 02/10/2023 11:11 AM CDT [facility] LABORATORY SERVICES [facility] Blood, whole 02/10/2023 11:1 1 AM CDT 02/10/2023 11:24 AM CDT Zbigniew Marino MD POINT OF CARE TEST ING Performing Organization Address [facility]/ZIP Co de Phone Number [facility]# [id number] [address] [place] [address] * (ABNORMAL) POC GLUCOSE (02/10/2023 9:33 AM CDT) GLUCOSE POC 338(H) 74 - 99 mg/dL 02/10/2023 9:33 AM CDT [facility] LABORATORY SERVICES [facility] SPECIMEN SOURCE, GLUCOSE POC Whole Blood 02/10/2023 9:33 AM CDT [facility] LABORATORY SERVICES [facility] COMMENT, GLU POC Notified RN/MD 02/10/2023 9:33 AM CDT [facility] Blood, whole 02/10/2023 9:33 AM CDT 02/10/2023 9:45 AM CDT Zbigniew Marino MD POINT OF CARE TEST ING [facility]# [id number] [address] [place] [address] * (ABNORMAL) POC GLUCOSE (02/10/2023 5:12 AM CDT) GLUCOSE POC 317(H) 74 - 99 mg/dL 02/10/2023 5:12 AM CDT [facility] LABORATORY SERVICES - [facility] SPECIMEN SOURCE, GLUCOSE POC Whole Blood 02/10/2023 5:12 AM CDT [facility] LABORATORY SERVICES [facility] COMMENT, GLU POC Notified RN/MD 02/10/2023 5:12 AM CDT [facility] LABORATORY SERVICES [facility] Blood, whole 02/10/2023 5:12 AM CDT 02/10/2023 5:22 AM CDT Zbigniew Marino MD POINT OF CARE TEST ING Performing Organization Address [facility]/ZIP Co de Phone Number [facility]# [id number] [address] [place] [address] * (ABNORMAL) POC GLUCOSE (02/10/2023 1:56 AM CDT) GLUCOSE POC 337(H) 74 - 99 mg/dL 02/10/2023 1:56 AM CDT [facility] LABORATORY SERVICES - [facility] SPECIMEN SOURCE, GLUCOSE POC Whole Blood 02/10/2023 1:56 AM CDT [facility] LABORATORY SERVICES [facility] COMMENT, GLU POC Notified RN/MD 02/10/2023 1:56 AM CDT [facility] LABORATORY SERVICES [facility] Blood, whole 02/10/2023 1:56 AM CDT 02/10/2023 2:05 AM CDT Zbigniew Marino MD POINT OF CARE TEST ING [facility] LABORATORY [facility] CLIA# [id number] [address] [place] [address] * (ABNORMAL) POC GLUCOSE (02/09/2023 10:28 PM CDT) GLUCOSE POC 210(H) 74 - 99 mg/dL 02/09/2023 10:28 PM CDT [facility] LABORATORY [facility] SPECIMEN SOURCE, GLUCOSE POC Whole Blood 02/09/2023 10:28 PM CDT [facility] LABORATORY [facility] Blood, whole 02/09/2023 10:2 8 PM CDT 02/09/2023 10:46 PM CDT Zbigniew Marino MD POINT OF CARE TEST ING [facility] CLIA# [id number] [address] [place] [address] * POC GLUCOSE (02/09/2023 8:54 PM CDT) GLUCOSE POC 92 74 - 99 mg/dL 02/09/2023 8:54 PM CDT [facility] LABORATORY [facility] SPECIMEN SOURCE, GLUCOSE POC Whole Blood 02/09/2023 8:54 PM CDT [facility] LABORATORY [facility] Blood, whole 02/09/2023 8:54 PM CDT 02/09/2023 9:07 PM CDT Zbigniew Marino MD POINT OF CARE TEST ING [facility] CLIA# [id number] [address] [place] [address] * POC GLUCOSE (02/09/2023 7:48 PM CDT) GLUCOSE POC 78 74 - 99 mg/dL 02/09/2023 7:48 PM CDT [facility] LABORATORY [facility] SPECIMEN SOURCE, GLUCOSE POC Whole Blood 02/09/2023 7:48 PM CDT [facility] LABORATORY SERVICES [facility] Blood, whole 02/09/2023 7:48 PM CDT 02/09/2023 8:05 PM CDT Zbigniew Marino MD POINT OF CARE TEST ING Performing Organization Address [facility] Co de Phone Number [facility] CLIA# [id number] [address] [place] [address] * (ABNORMAL) POC GLUCOSE (02/09/2023 6:26 PM CDT) GLUCOSE POC 143(H) 74 - 99 mg/dL 02/09/2023 6:26 PM CDT [facility] LABORATORY [facility] SPECIMEN SOURCE, GLUCOSE POC Whole Blood 02/09/2023 6:26 PM CDT [facility] LABORATORY [facility] COMMENT, GLU POC Notified RN/MD 02/09/2023 6:26 PM CDT [facility] LABOR[facility] Blood, whole 02/09/2023 6:26 PM CDT 02/09/2023 6:39 PM CDT Zbigniew Marino MD POINT OF CARE TEST ING Performing Organization Address [facility] Co de Phone Number [facility] Just[facility] CLIA# [id number] [address] [place] [address] * (ABNORMAL) POC GLUCOSE (02/09/2023 2:37 PM CDT) GLUCOSE POC 226(H) 74 - 99 mg/dL 02/09/2023 2:37 PM CDT [facility] LABORATORY [facility] SPECIMEN SOURCE, GLUCOSE POC Whole Blood 02/09/2023 2:37 PM CDT [facility] LABORATORY [facility] Blood, whole 02/09/2023 2:37 PM CDT 02/09/2023 2:45 PM CDT Zbigniew Marino MD POINT OF CARE TEST ING Performing Organization Address City/[facility]/ZIP Co de Phone Number [facility] LABORATORY SERVICES [facility] CLIA# [id number] [address] [place] [address] * (ABNORMAL) POC GLUCOSE (02/09/2023 1:23 PM CDT) GLUCOSE POC 272(H) 74 - 99 mg/dL 02/09/2023 1:23 PM CDT [facility] LABORATORY SERVICES - [facility] SPECIMEN SOURCE, GLUCOSE POC Whole Blood 02/09/2023 1:23 PM CDT [facility] COMMENT, GLU POC Notified RN/MD 02/09/2023 1:23 PM CDT [facility] LABORATORY SERVICES [facility] Blood, whole 02/09/2023 1:23 PM CDT 02/09/2023 1:32 PM CDT Zbigniew Marino MD POINT OF CARE TEST ING Performing Organization Address [facility]/ZIP Co de Phone Number [facility] LABORATORY [facility] CLIA# [id number] [address] [place] [address] * (ABNORMAL) POC GLUCOSE (02/09/2023 10:25 AM CDT) GLUCOSE POC 170(H) 74 - 99 mg/dL 02/09/2023 10:25 AM CDT [facility] - [facility] SPECIMEN SOURCE, GLUCOSE POC Whole Blood 02/09/2023 10:25 AM CDT [facility] LABORATORY SERVICES [facility] COMMENT, GLU POC Notified RN/ 02/09/2023 10:25 AM CDT [facility] Blood, whole 02/09/2023 10:2 5 AM CDT 02/09/2023 10:33 AM CDT Zbigniew Marino MD POINT OF CARE TEST ING Performing Organization Address City/[facility]/ZIP Co de Phone Number [facility] LABORATORY [facility] CLIA# [id number] [address] [place] [address] * (ABNORMAL) POC GLUCOSE (02/09/2023 9:19 AM CDT) GLUCOSE POC 138(H) 74 - 99 mg/dL 02/09/2023 9:19 AM CDT [facility] LABORATORY SERVICES - [facility] SPECIMEN SOURCE, GLUCOSE POC Whole Blood 02/09/2023 9:19 AM CDT [facility] LABORATORY SERVICES - [facility] Blood, whole 02/09/2023 9:19 AM CDT 02/09/2023 9:27 AM CDT Zbigniew Marino MD POINT OF CARE TEST ING Performing Organization Address [facility] Co de Phone Number [facility] Just[facility] CLIA# [id number] [address] [place] [address] * (ABNORMAL) POC GLUCOSE (02/09/2023 5:09 AM CDT) GLUCOSE POC 106(H) 74 - 99 mg/dL 02/09/2023 5:09 AM CDT [facility] LABORATORY SERVICES - [facility] SPECIMEN SOURCE, GLUCOSE POC Whole Blood 02/09/2023 5:09 AM CDT [facility] LABORATORY [facility] Blood, whole 02/09/2023 5:09 AM CDT 02/09/2023 5:27 AM CDT Zbigniew Marino MD POINT OF CARE TEST ING Performing Organization Address City/[facility]/ZIP Co de Phone Number [facility] CLIA# [id number] [address] [place] [address] * (ABNORMAL) POC GLUCOSE (02/09/2023 2:13 AM CDT) GLUCOSE POC 142(H) 74 - 99 mg/dL 02/09/2023 2:13 AM CDT [facility] LABORATORY SERVICES - [facility] SPECIMEN SOURCE, GLUCOSE POC Whole Blood 02/09/2023 2:13 AM CDT [facility] LABORATORY SERVICES - [facility] Blood, whole 02/09/2023 2:13 AM CDT 02/09/2023 2:22 AM CDT Zbigniew Marino MD POINT OF CARE TEST ING [facility] LABORATORY [facility] CLIA# [id number] [address] [place] [address] * (ABNORMAL) POC GLUCOSE (02/08/2023 9:48 PM CDT) GLUCOSE POC 133(H) 74 - 99 mg/dL 02/08/2023 9:48 PM CDT [facility] LABORATORY SERVICES - [facility] SPECIMEN SOURCE, GLUCOSE POC Whole Blood 02/08/2023 9:48 PM CDT [facility] LABORATORY SERVICES - [facility] Blood, whole 02/08/2023 9:48 PM CDT 02/08/2023 10:18 PM CDT Zbigniew Marino MD POINT OF CARE TEST ING [facility] LABORATORY SERVICES [facility] CLIA# [id number] [address] [place] [address] * (ABNORMAL) POC GLUCOSE (02/08/2023 8:38 PM CDT) GLUCOSE POC 132(H) 74 - 99 mg/dL 02/08/2023 8:38 PM CDT [facility] - [facility] SPECIMEN SOURCE, GLUCOSE POC Whole Blood 02/08/2023 8:38 PM CDT [facility] Blood, whole 02/08/2023 8:38 PM CDT 02/08/2023 9:18 PM CDT Zbigniew Marino MD POINT OF CARE TEST ING [facility] CLIA# [id number] [address] [place] [address] * (ABNORMAL) POC GLUCOSE (02/08/2023 7:01 PM CDT) GLUCOSE POC 152(H) 74 - 99 mg/dL 02/08/2023 7:01 PM CDT [facility] SPECIMEN SOURCE, GLUCOSE POC Whole Blood 02/08/2023 7:01 PM CDT [facility] COMMENT, GLU POC Notified RN/MD 02/08/2023 7:01 PM CDT [facility] Blood, whole 02/08/2023 7:01 PM CDT 02/08/2023 7:28 PM CDT Zbigniew Marino MD POINT OF CARE TEST ING [facility] CLIA# [id number] [address] [place] [address] * (ABNORMAL) POC GLUCOSE (02/08/2023 6:32 PM CDT) GLUCOSE POC 125(H) 74 - 99 mg/dL 02/08/2023 6:32 PM CDT [facility] SPECIMEN SOURCE, GLUCOSE POC Whole Blood 02/08/2023 6:32 PM CDT [facility] Blood, whole 02/08/2023 6:32 PM CDT 02/08/2023 6:41 PM CDT Zbigniew Marino MD POINT OF CARE TEST ING [facility] CLIA# [id number] [address] [place] [address] * (ABNORMAL) POC GLUCOSE (02/08/2023 6:01 PM CDT) GLUCOSE POC 111(H) 74 - 99 mg/dL 02/08/2023 6:01 PM CDT [facility] SPECIMEN SOURCE, GLUCOSE POC Whole Blood 02/08/2023 6:01 PM CDT [facility] Blood, whole 02/08/2023 6:01 PM CDT 02/08/2023 6:12 PM CDT Zbigniew Marino MD POINT OF CARE TEST ING Performing Organization Address [facility] Co de Phone Number [facility] CLIA# [id number] [address] [place] [address] * (ABNORMAL) POC GLUCOSE (02/08/2023 5:31 PM CDT) GLUCOSE POC 73(L) 74 - 99 mg/dL 02/08/2023 5:31 PM CDT [facility] SPECIMEN SOURCE, GLUCOSE POC Whole Blood 02/08/2023 5:31 PM CDT [facility] COMMENT, GLU POC Notified RN/MD 02/08/2023 5:31 PM CDT [facility] Blood, whole 02/08/2023 5:31 PM CDT 02/08/2023 5:40 PM CDT Zbigniew Marino MD POINT OF CARE TEST ING Performing Organization Address [facility] Co de Phone Number [facility] CLVT# [id number] [address] [place] [address] * (ABNORMAL) POC GLUCOSE (02/08/2023 5:16 PM CDT) GLUCOSE POC 62(L) 74 - 99 mg/dL 02/08/2023 5:16 PM CDT [facility] LABORATORY [facility] SPECIMEN SOURCE, GLUCOSE POC Whole Blood 02/08/2023 5:16 PM CDT [facility] COMMENT, GLU POC Notified RN/MD 02/08/2023 5:16 PM CDT [facility] LABORATORY SERVICES [facility] Blood, whole 02/08/2023 5:16 PM CDT 02/08/2023 5:25 PM CDT Zbigniew Marino MD POINT OF CARE TEST ING [facility] Justyle [facility] CLIA# [id number] [address] [place] [address] * (ABNORMAL) POC GLUCOSE (02/08/2023 4:58 PM CDT) GLUCOSE POC 54(L) 74 - 99 mg/dL 02/08/2023 4:58 PM CDT [facility] SPECIMEN SOURCE, GLUCOSE POC Whole Blood 02/08/2023 4:58 PM CDT [facility] COMMENT, GLU POC Notified RN/MD 02/08/2023 4:58 PM CDT [facility] - [facility] Blood, whole 02/08/2023 4:58 PM CDT 02/08/2023 5:25 PM CDT Zbigniew Marino MD POINT OF CARE TEST ING Performing Organization Address [facility]/ZIP Co de Phone Number [facility] Justyle [facility] CLIA# [id number] [address] [place] [address] * (ABNORMAL) POC GLUCOSE (02/08/2023 2:30 PM CDT) GLUCOSE POC 114(H) 74 - 99 mg/dL 02/08/2023 2:30 PM CDT [facility] SPECIMEN SOURCE, GLUCOSE POC Whole Blood 02/08/2023 2:30 PM CDT [facility] Blood, whole 02/08/2023 2:30 PM CDT 02/08/2023 2:37 PM CDT Zbigniew Marino MD POINT OF CARE TEST ING [facility] LABORATORY [facility] CLIA# [id number] [address] [place] [address] * (ABNORMAL) POC GLUCOSE (02/08/2023 1:32 PM CDT) GLUCOSE POC 141(H) 74 - 99 mg/dL 02/08/2023 1:32 PM CDT [facility] LABORATORY SERVICES - [facility] SPECIMEN SOURCE, GLUCOSE POC Whole Blood 02/08/2023 1:32 PM CDT [facility] LABORATORY SERVICES - [facility] Blood, whole 02/08/2023 1:32 PM CDT 02/08/2023 1:56 PM CDT Zbigniew Marino MD POINT OF CARE TEST ING Performing Organization Address [facility]/ZIP Co de Phone Number [facility] Justyle [facility] CLIA# [id number] [address] [place] [address] * (ABNORMAL) POC GLUCOSE (02/08/2023 11:01 AM CDT) GLUCOSE POC 161(H) 74 - 99 mg/dL 02/08/2023 11:01 AM CDT [facility] LABORATORY SERVICES - [facility] SPECIMEN SOURCE, GLUCOSE POC Whole Blood 02/08/2023 11:01 AM CDT [facility] LABORATORY SERVICES - [facility] Blood, whole 02/08/2023 11:0 1 AM CDT 02/08/2023 11:10 AM CDT Zbigniew Marino MD POINT OF CARE TEST ING [facility] Justyle [facility] CLIA# [id number] [address] [place] [address] * POC GLUCOSE (02/08/2023 9:43 AM CDT) GLUCOSE POC 75 74 - 99 mg/dL 02/08/2023 9:43 AM CDT [facility] LABORATORY SERVICES - [facility] SPECIMEN SOURCE, GLUCOSE POC Whole Blood 02/08/2023 9:43 AM CDT [facility] LABORATORY SERVICES - [facility] Blood, whole 02/08/2023 9:43 AM CDT 02/08/2023 10:17 AM CDT Zbigniew Marino MD POINT OF CARE TEST ING [facility] LABORATORY SERVICES [facility] CLIA# [id number] [address] [place] [address] * POC GLUCOSE (02/08/2023 4:15 AM CDT) GLUCOSE POC 77 74 - 99 mg/dL 02/08/2023 4:15 AM CDT [facility] LABORATORY SERVICES - [facility] SPECIMEN SOURCE, GLUCOSE POC Whole Blood 02/08/2023 4:15 AM CDT [facility] LABORATORY SERVICES - [facility] Blood, whole 02/08/2023 4:15 AM CDT 02/08/2023 4:31 AM CDT Zbigniew Marino MD POINT OF CARE TEST ING Performing Organization Address City/[facility]/ZIP Co de Phone Number [facility] Justyle [facility] CLIA# [id number] [address] [place] [address] * (ABNORMAL) POC GLUCOSE (02/08/2023 3:35 AM CDT) GLUCOSE POC 71(L) 74 - 99 mg/dL 02/08/2023 3:35 AM CDT [facility] LABORATORY SERVICES - [facility] SPECIMEN SOURCE, GLUCOSE POC Whole Blood 02/08/2023 3:35 AM CDT [facility] LABORATORY SERVICES - [facility] Blood, whole 02/08/2023 3:35 AM CDT 02/08/2023 3:44 AM CDT Zbigniew Marino MD POINT OF CARE TEST ING [facility] LABORATORY SERVICES [facility] CLIA# [id number] [address] [place] [address] * POC GLUCOSE (02/08/2023 3:06 AM CDT) GLUCOSE POC 90 74 - 99 mg/dL 02/08/2023 3:06 AM CDT [facility] LABORATORY SERVICES - [facility] SPECIMEN SOURCE, GLUCOSE POC Whole Blood 02/08/2023 3:06 AM CDT [facility] - [facility] Blood, whole 02/08/2023 3:06 AM CDT 02/08/2023 3:14 AM CDT Zbigniew Marino MD POINT OF CARE TEST ING Performing Organization Address [facility] Co de Phone Number [facility] Justyle [facility] CLIA# [id number] [address] [place] [address] * (ABNORMAL) POC GLUCOSE (02/08/2023 2:33 AM CDT) GLUCOSE POC 71(L) 74 - 99 mg/dL 02/08/2023 2:33 AM CDT [facility] LABORATORY SERVICES - [facility] SPECIMEN SOURCE, GLUCOSE POC Whole Blood 02/08/2023 2:33 AM CDT [facility] LABORATORY [facility] Blood, whole 02/08/2023 2:33 AM CDT 02/08/2023 2:44 AM CDT Zbigniew Marino MD POINT OF CARE TEST ING Performing Organization Address City/[facility]/ZIP Co de Phone Number [facility] Just[facility] CLIA# [id number] [address] [place] [address] * (ABNORMAL) POC GLUCOSE (02/08/2023 2:11 AM CDT) GLUCOSE POC 68(L) 74 - 99 mg/dL 02/08/2023 2:11 AM CDT [facility] LABORATORY SERVICES - [facility] SPECIMEN SOURCE, GLUCOSE POC Whole Blood 02/08/2023 2:11 AM CDT [facility] LABORATORY SERVICES [facility] COMMENT, GLU POC Notified RN/MD 02/08/2023 2:11 AM CDT [facility] LABORATORY SERVICES - [facility] Blood, whole 02/08/2023 2:11 AM CDT 02/08/2023 2:21 AM CDT Zbigniew Marino MD POINT OF CARE TEST ING [facility] Justyle [facility] CLIA# [id number] [address] [place] [address] * (ABNORMAL) POC GLUCOSE (02/07/2023 9:18 PM CDT) GLUCOSE POC 149(H) 74 - 99 mg/dL 02/07/2023 9:18 PM CDT [facility] LABORATORY SERVICES [facility] SPECIMEN SOURCE, GLUCOSE POC Whole Blood 02/07/2023 9:18 PM CDT [facility] Blood, whole 02/07/2023 9:18 PM CDT 02/07/2023 9:51 PM CDT Zbigniew Marino MD POINT OF CARE TEST ING [facility] Justyle [facility] CLIA# [id number] [address] [place] [address] * (ABNORMAL) POC GLUCOSE (02/07/2023 6:43 PM CDT) GLUCOSE POC 107(H) 74 - 99 mg/dL 02/07/2023 6:43 PM CDT [facility] SERVICES [facility] SPECIMEN SOURCE, GLUCOSE POC Whole Blood 02/07/2023 6:43 PM CDT [facility] LABORATORY SERVICES [facility] Blood, whole 02/07/2023 6:43 PM CDT 02/07/2023 7:02 PM CDT Zbigniew Marino MD POINT OF CARE TEST ING [facility]# [id number] [address] [place] [address] * (ABNORMAL) POC GLUCOSE (02/07/2023 5:40 PM CDT) GLUCOSE POC 70(L) 74 - 99 mg/dL 02/07/2023 5:40 PM CDT [facility] LABORATORY [facility] SPECIMEN SOURCE, GLUCOSE POC Whole Blood 02/07/2023 5:40 PM CDT [facility] LABORATORY [facility] Blood, whole 02/07/2023 5:40 PM CDT 02/07/2023 5:54 PM CDT Zbigniew Marino MD POINT OF CARE TEST ING Performing Organization Address [facility]/ZIP Co de Phone Number [facility] CLIA# [id number] [address] [place] [address] * (ABNORMAL) POC GLUCOSE (02/07/2023 2:11 PM CDT) GLUCOSE POC 105(H) 74 - 99 mg/dL 02/07/2023 2:11 PM CDT [facility] LABORATORY [facility] SPECIMEN SOURCE, GLUCOSE POC Whole Blood 02/07/2023 2:11 PM CDT [facility] LABORATORY [facility] COMMENT, GLU POC Notified RN/MD 02/07/2023 2:11 PM CDT [facility] LABORATORY [facility] Blood, whole 02/07/2023 2:11 PM CDT 02/07/2023 2:20 PM CDT Zbigniew Marino MD PO[facility]ARE [facility] [id number] [address] [place] [address] * POC GLUCOSE (02/07/2023 12:51 PM CDT) GLUCOSE POC 82 74 - 99 mg/dL 02/07/2023 12:51 PM CDT [facility] LABORATORY SERVICES - [facility] SPECIMEN SOURCE, GLUCOSE POC Whole Blood 02/07/2023 12:51 PM CDT [facility] LABORATORY SERVICES - [facility] Blood, whole 02/07/2023 12:5 1 PM CDT 02/07/2023 1:16 PM CDT Zbigniew Marino MD POINT OF CARE TEST ING Performing Organization Address [facility] Co de Phone Number [facility] LABORATORY [facility] CLIA# [id number] [address] [place] [address] * (ABNORMAL) POC GLUCOSE (02/07/2023 11:23 AM CDT) GLUCOSE POC 128(H) 74 - 99 mg/dL 02/07/2023 11:23 AM CDT [facility] LABORATORY SERVICES - [facility] SPECIMEN SOURCE, GLUCOSE POC Whole Blood 02/07/2023 11:23 AM CDT [facility] LABORATORY SERVICES - [facility] COMMENT, GLU POC Notified RN/MD 02/07/2023 11:23 AM CDT [facility] LABORATORY SERVICES - [facility] Blood, whole 02/07/2023 11:2 3 AM CDT 02/07/2023 11:47 AM CDT Zbigniew Marino MD POINT OF CARE TEST ING Performing Organization Address [facility] Co de Phone Number [facility] LABORATORY [facility] CLIA# [id number] [address] [place] [address] * (ABNORMAL) POC GLUCOSE (02/07/2023 10:21 AM CDT) GLUCOSE POC 137(H) 74 - 99 mg/dL 02/07/2023 10:21 AM CDT [facility] LABORATORY SERVICES - [facility] SPECIMEN SOURCE, GLUCOSE POC Whole Blood 02/07/2023 10:21 AM CDT [facility] LABORATORY SERVICES - [facility] Blood, whole 02/07/2023 10:2 1 AM CDT 02/07/2023 10:32 AM CDT Zbigniew Marino MD POINT OF CARE TEST ING Performing Organization Address [facility] Co de Phone Number [facility]# [id number] [address] [place] [address] * (ABNORMAL) POC GLUCOSE (02/07/2023 8:12 AM CDT) GLUCOSE POC 163(H) 74 - 99 mg/dL 02/07/2023 8:12 AM CDT [facility] LABORATORY [facility] SPECIMEN SOURCE, GLUCOSE POC Whole Blood 02/07/2023 8:12 AM CDT [facility] LABORATORY [facility] Blood, whole 02/07/2023 8:12 AM CDT 02/07/2023 8:24 AM CDT Zbigniew Marino MD POINT OF CARE TEST ING Performing Organization Address [facility] de Phone Number [facility]# [id number] [address] [place] [address] * PATHOLOGY (02/07/2023 5:36 AM CDT) Pathologist [facility] CASE REPORT Surgical Pathology Report ? Case: [id number] ? Authorizing Provider: ??Enrico Casillas MD ?Collected: ? 02/07/2023 05:36 AM ? Ordering Location: ? [facility] ?Received: ?02/08/2023 07:54 AM ? Labor & ? Pathologist: ? Di Tilley MD ? Specimen: ?Placenta ? 3 2:05 PM [facility] FINAL DIAGNOSIS Placenta and umbilical cord, section: - 391 g placenta (10th-25th percentile for 36-week gestation). - Single stem vessel with intimal fibrin cushion. - Mild subchorionic fibrin deposition. - Few pigment-laden macrophages identified in membranes (meconium staining). 3 2:05 PM [facility] S DESCRIPTION Received in one container labeled Chey Menjivar and no micro, placenta is a [...] with no lesions or hemorrhagic indentations identified. [employer] sections are submitted in cassettes labeled A1-umbilical cord and membranes; A2 through A4-unremarkable placental parenchyma. SMB 3 2:05 PM [facility] MICROSCOPIC DESCRIPTION The slides are labeled [id number] and Chey Menjivar. The recorded placental weight [...] cord is histologically unremarkable. 3 2:05 PM [facility] OPERATIVE PROCEDURE 1: SECTION 3 2:05 PM [facility] CLINICAL INFORMATION GA: 35+5 Pre-e T1DM 3 2:05 PM [facility] COMMENT Special stain, immunohistochemical, and/or in situ hybridization results are interpreted with controls that demonstrate appropriate staining reactions. Note on use of immunohistochemistry reagents and in situ hybridization probes: These tests were developed and their performance characteristics determined by [facility], Department of Laboratory Medicine. It has not [...] part or completely in the following laboratories: [facility], CLIA #[id number] [address] [place] [address] [id number] [address] [place] [address] [facility]/[place], CLIA #[id number] [address] [place] [address] This report was created with the [employer] voice-activated dictation system. Inherent to this system is the possibility of syntax, grammar, punctuation and other errors that could impact the interpretation of the report. If there are interpretative questions about aspects of this report, please contact the performing pathologist. 2:05 PM CDT [facility] LABORATORY [facility] Tissue SPECIMEN FROM [facility]ENT[facility] / Unknown Collection / Unknown 02/07/2023 5:36 AM CDT 02/08/2023 7:54 AM CDT Comment:GA: 35+5 Pre-e T1DM Enrico Casillas MD PATHOLOGY/CYTOLOGY O RDERABLES Performing Organization Address City/[facility]/ZIP Co de Phone Number [facility]# [id number] [address] [place] [address] * (ABNORMAL) POC GLUCOSE (02/07/2023 4:48 AM CDT) GLUCOSE POC 144(H) 74 - 99 mg/dL 02/07/2023 4:48 AM CDT [facility] SPECIMEN SOURCE, GLUCOSE POC Whole Blood 02/07/2023 4:48 AM CDT [facility] Blood, whole 02/07/2023 4:48 AM CDT 02/07/2023 7:15 AM CDT Zbigniew Marino MD POINT OF CARE TEST ING Performing Organization Address [facility]/ZIP Co de Phone Number [facility]# [id number] [address] [place] [address] * (ABNORMAL) POC GLUCOSE (02/07/2023 3:07 AM CDT) GLUCOSE POC 118(H) 74 - 99 mg/dL 02/07/2023 3:07 AM CDT [facility] LABORATORY SERVICES - [facility] SPECIMEN SOURCE, GLUCOSE POC Whole Blood 02/07/2023 3:07 AM CDT [facility] LABORATORY [facility] Blood, whole 02/07/2023 3:07 AM CDT 02/07/2023 3:15 AM CDT Zbigniew Marino MD POINT OF CARE TEST ING Performing Organization Address [facility]/ZIP Co de Phone Number [facility] CLIA# [id number] [address] [place] [address] * (ABNORMAL) POC GLUCOSE (02/06/2023 9:49 PM CDT) GLUCOSE POC 181(H) 74 - 99 mg/dL 02/06/2023 9:49 PM CDT [facility] LABORATORY [facility] SPECIMEN SOURCE, GLUCOSE POC Whole Blood 02/06/2023 9:49 PM CDT [facility] LABORATORY [facility] Blood, whole 02/06/2023 9:49 PM CDT 02/06/2023 10:01 PM CDT Zbigniew Marino MD POINT OF CARE TEST ING Performing Organization Address [facility]/ZIP Co de Phone Number [facility] CLIA# [id number] [address] [place] [address] * (ABNORMAL) POC GLUCOSE (02/06/2023 8:40 PM CDT) GLUCOSE POC 203(H) 74 - 99 mg/dL 02/06/2023 8:40 PM CDT [facility] LABORATORY [facility] SPECIMEN SOURCE, GLUCOSE POC Whole Blood 02/06/2023 8:40 PM CDT [facility] LABORATORY SERVICES [facility] Blood, whole 02/06/2023 8:40 PM CDT 02/06/2023 8:54 PM CDT Zbigniew Marino MD POINT OF CARE TEST ING Performing Organization Address City/[facility]/ZIP Co de Phone Number [facility] [id number] [address] [place] [address] * (ABNORMAL) POC GLUCOSE (02/06/2023 6:10 PM CDT) GLUCOSE POC 167(H) 74 - 99 mg/dL 02/06/2023 6:10 PM CDT [facility] LABORATORY SERVICES [facility] SPECIMEN SOURCE, GLUCOSE POC Whole Blood 02/06/2023 6:10 PM CDT [facility] LABORATORY SERVICES [facility] Blood, whole 02/06/2023 6:10 PM CDT 02/06/2023 6:18 PM CDT Zbigniew Marino MD POINT OF CARE TEST ING Performing Organization Address [facility] Co de Phone Number [facility] Justyle [facility]# [id number] [address] [place] [address] * (ABNORMAL) POC GLUCOSE (02/06/2023 5:38 PM CDT) GLUCOSE POC 129(H) 74 - 99 mg/dL 02/06/2023 5:38 PM CDT [facility] LABORATORY SERVICES [facility] SPECIMEN SOURCE, GLUCOSE POC Whole Blood 02/06/2023 5:38 PM CDT [facility] LABORATORY SERVICES - [facility] Blood, whole 02/06/2023 5:38 PM CDT 02/06/2023 5:45 PM CDT Zbigniew Marino MD POINT OF CARE TEST ING Performing Organization Address City/[facility]/ZIP Co de Phone Number [facility] Justyle [facility]# [id number] [address] [place] [address] * POC GLUCOSE (02/06/2023 5:07 PM CDT) GLUCOSE POC 81 74 - 99 mg/dL 02/06/2023 5:07 PM CDT [facility] LABORATORY SERVICES - [facility] SPECIMEN SOURCE, GLUCOSE POC Whole Blood 02/06/2023 5:07 PM CDT [employer] LABORATORY SERVICES - [facility] Blood, whole 02/06/2023 5:07 PM CDT 02/06/2023 5:24 PM CDT Zbigniew Marino MD POINT OF CARE TEST ING Performing Organization Address [facility]/ZIP Co de Phone Number [facility] LABORATORY [facility] CLIA# [id number] [address] [place] [address] * (ABNORMAL) POC GLUCOSE (02/06/2023 4:43 PM CDT) GLUCOSE POC 56(L) 74 - 99 mg/dL 02/06/2023 4:43 PM CDT [facility] LABORATORY SERVICES - [facility] SPECIMEN SOURCE, GLUCOSE POC Whole Blood 02/06/2023 4:43 PM CDT [facility] LABORATORY SERVICES [facility] COMMENT, GLU POC Notified RN/MD 02/06/2023 4:43 PM CDT [facility] LABORATORY SERVICES [facility] Blood, whole 02/06/2023 4:43 PM CDT 02/06/2023 4:51 PM CDT Zbigniew Marino MD POINT OF CARE TEST ING Performing Organization Address [facility]/ZIP Co de Phone Number [facility] LABORATORY [facility] CLIA# [id number] [address] [place] [address] * (ABNORMAL) POC GLUCOSE (02/06/2023 4:22 PM CDT) GLUCOSE POC 54(L) 74 - 99 mg/dL 02/06/2023 4:22 PM CDT [facility] LABORATORY SERVICES [facility] SPECIMEN SOURCE, GLUCOSE POC Whole Blood 02/06/2023 4:22 PM CDT [facility] LABORATORY SERVICES - [facility] Blood, whole 02/06/2023 4:22 PM CDT 02/06/2023 4:37 PM CDT Zbigniew Marino MD POINT OF CARE TEST ING Performing Organization Address City/[facility]/ZIP Co de Phone Number [facility] SERVICES [facility] CLIA# [id number] [address] [place] [address] * (ABNORMAL) POC GLUCOSE (02/06/2023 4:06 PM CDT) GLUCOSE POC 40(LL) 74 - 99 mg/dL 02/06/2023 4:06 PM CDT [facility] LABORATORY SERVICES - [facility] SPECIMEN SOURCE, GLUCOSE POC Whole Blood 02/06/2023 4:06 PM CDT [facility] LABORATORY SERVICES - [facility] COMMENT, GLU POC Repeated Glucose 02/06/2023 4:06 PM CDT [facility] LABORATORY SERVICES - [facility] Blood, whole 02/06/2023 4:06 PM CDT 02/06/2023 4:14 PM CDT Zbigniew Marino MD POINT OF CARE TEST ING Performing Organization Address [facility] Co de Phone Number [facility] Justyle [facility] CLIA# [id number] [address] [place] [address] * TYPE AND SCREEN (02/06/2023 3:40 PM CDT) ABO GROUP O 02/06/2023 5:40 PM CDT [facility] LABORATORY SERVICES -- [facility] RH (D) TYPE Positive 02/06/2023 5:40 PM CDT [facility] LABORATORY SERVICES -- [facility] ANTIBODY SCREEN Negative 02/06/2023 5:40 PM CDT [facility] LABORATORY SERVICES -- [facility] Blood Venipuncture / Unknown 02/06/2023 3:40 PM CDT 02/06/2023 4:41 PM CDT Zbigniew Marino MD BLOOD BANK ORDERAB LES [facility] LABORATORY SERVICES -- [facility] CLIA# [id number] [address] [place] [address] * POC GLUCOSE (02/06/2023 3:08 PM CDT) GLUCOSE POC 79 74 - 99 mg/dL 02/06/2023 3:08 PM CDT [facility] LABORATORY SERVICES - [facility] SPECIMEN SOURCE, GLUCOSE POC Whole Blood 02/06/2023 3:08 PM CDT [facility] LABORATORY SERVICES - [facility] Blood, whole 02/06/2023 3:08 PM CDT 02/06/2023 3:21 PM CDT Zbigniew Marino MD POINT OF CARE TEST ING [facility] Justyle [facility] CLIA# [id number] [address] [place] [address] * POC GLUCOSE (02/06/2023 12:32 PM CDT) GLUCOSE POC 95 74 - 99 mg/dL 02/06/2023 12:32 PM CDT [facility] LABORATORY [facility] SPECIMEN SOURCE, GLUCOSE POC Whole Blood 02/06/2023 12:32 PM CDT [facility] LABORATORY [facility] Blood, whole 02/06/2023 12:3 2 PM CDT 02/06/2023 12:49 PM CDT Zbigniew Marino MD POINT OF CARE TEST ING [facility] Justyle [facility] CLIA# [id number] [address] [place] [address] * (ABNORMAL) POC GLUCOSE (02/06/2023 10:20 AM CDT) GLUCOSE POC 131(H) 74 - 99 mg/dL 02/06/2023 10:20 AM CDT [facility] SPECIMEN SOURCE, GLUCOSE POC Whole Blood 02/06/2023 10:20 AM CDT [facility] Blood, whole 02/06/2023 10:2 0 AM CDT 02/06/2023 10:29 AM CDT Zbigniew Marino MD POINT OF CARE TEST ING [facility] LABORATORY SERVICES [facility] CLIA# [id number] [address] [place] [address] * (ABNORMAL) POC GLUCOSE (02/06/2023 8:46 AM CDT) GLUCOSE POC 115(H) 74 - 99 mg/dL 02/06/2023 8:46 AM CDT [facility] LABORATORY SERVICES [facility] SPECIMEN SOURCE, GLUCOSE POC Whole Blood 02/06/2023 8:46 AM CDT [facility] Blood, whole 02/06/2023 8:46 AM CDT 02/06/2023 8:58 AM CDT Zbigniew Marino MD POINT OF CARE TEST ING Performing Organization Address City/[facility]/ZIP Co de Phone Number [facility] Justyle [facility] CLIA# [id number] [address] [place] [address] * POC GLUCOSE (02/06/2023 6:29 AM CDT) GLUCOSE POC 99 74 - 99 mg/dL 02/06/2023 6:29 AM CDT [facility] LABORATORY SERVICES - [facility] SPECIMEN SOURCE, GLUCOSE POC Whole Blood 02/06/2023 6:29 AM CDT [facility] Blood, whole 02/06/2023 6:29 AM CDT 02/06/2023 6:47 AM CDT Zbigniew Marino MD POINT OF CARE TEST ING [facility] LABORATORY [facility] CLIA# [id number] [address] [place] [address] * (ABNORMAL) POC GLUCOSE (02/06/2023 2:06 AM CDT) GLUCOSE POC 141(H) 74 - 99 mg/dL 02/06/2023 2:06 AM CDT [facility] LABORATORY SERVICES - [facility] SPECIMEN SOURCE, GLUCOSE POC Whole Blood 02/06/2023 2:06 AM CDT [facility] LABORATORY SERVICES - [facility] Blood, whole 02/06/2023 2:06 AM CDT 02/06/2023 2:13 AM CDT Zbigniew Marino MD POINT OF CARE TEST ING Performing Organization Address [facility] Co de Phone Number [facility] Justyle [facility]# [id number] [address] [place] [address] * (ABNORMAL) POC GLUCOSE (02/05/2023 9:55 PM CDT) GLUCOSE POC 183(H) 74 - 99 mg/dL 02/05/2023 9:55 PM CDT [facility] LABORATORY [facility] - [facility] SPECIMEN SOURCE, GLUCOSE POC Whole Blood 02/05/2023 9:55 PM CDT [facility] LABORATORY [facility] - [facility] Blood, whole 02/05/2023 9:55 PM CDT 02/05/2023 10:06 PM CDT Zbigniew Marino MD POINT OF CARE TEST ING Performing Organization Address City/[facility]/ZIP Co de Phone Number [facility] CLVT# [id number] [address] [place] [address] * (ABNORMAL) POC GLUCOSE (02/05/2023 9:03 PM CDT) GLUCOSE POC 176(H) 74 - 99 mg/dL 02/05/2023 9:03 PM CDT [facility] LABORATORY SERVICES - [facility] SPECIMEN SOURCE, GLUCOSE POC Whole Blood 02/05/2023 9:03 PM CDT [facility] LABORATORY SERVICES - [facility] Blood, whole 02/05/2023 9:03 PM CDT 02/05/2023 9:12 PM CDT Zbigniew Marino MD POINT OF CARE TEST ING [facility] LABORATORY SERVICES [facility] CLIA# [id number] [address] [place] [address] * (ABNORMAL) POC GLUCOSE (02/05/2023 6:57 PM CDT) GLUCOSE POC 213(H) 74 - 99 mg/dL 02/05/2023 6:57 PM CDT [facility] LABORATORY SERVICES - [facility] SPECIMEN SOURCE, GLUCOSE POC Whole Blood 02/05/2023 6:57 PM CDT [facility] - [facility] Blood, whole 02/05/2023 6:57 PM CDT 02/05/2023 7:05 PM CDT Zbigniew Marino MD POINT OF CARE TEST ING [facility] SERVICES - [facility] CLIA# [id number] [address] [place] [address] * (ABNORMAL) POC GLUCOSE (02/05/2023 4:08 PM CDT) GLUCOSE POC 135(H) 74 - 99 mg/dL 02/05/2023 4:08 PM CDT [facility] LABORATORY SERVICES - [facility] SPECIMEN SOURCE, GLUCOSE POC Whole Blood 02/05/2023 4:08 PM CDT [facility] LABORATORY SERVICES - [facility] Blood, whole 02/05/2023 4:08 PM CDT 02/05/2023 4:22 PM CDT Zbigniew Marino MD POINT OF CARE TEST ING [facility] LABORATORY SERVICES [facility] CLIA# [id number] [address] [place] [address] * (ABNORMAL) POC GLUCOSE (02/05/2023 2:14 PM CDT) GLUCOSE POC 128(H) 74 - 99 mg/dL 02/05/2023 2:14 PM CDT [facility] LABORATORY SERVICES - [facility] SPECIMEN SOURCE, GLUCOSE POC Whole Blood 02/05/2023 2:14 PM CDT [facility] LABORATORY SERVICES - [facility] Blood, whole 02/05/2023 2:14 PM CDT 02/05/2023 2:23 PM CDT Zbigniew Marino MD POINT OF CARE TEST ING Performing Organization Address [facility] Co de Phone Number [facility] Justyle [facility] CLVT# [id number] [address] [place] [address] * (ABNORMAL) POC GLUCOSE (02/05/2023 1:12 PM CDT) GLUCOSE POC 157(H) 74 - 99 mg/dL 02/05/2023 1:12 PM CDT [facility] LABORATORY [facility] - [facility] SPECIMEN SOURCE, GLUCOSE POC Whole Blood 02/05/2023 1:12 PM CDT [facility] LABORATORY [facility] Blood, whole 02/05/2023 1:12 PM CDT 02/05/2023 1:22 PM CDT Zbigniew Marino MD POINT OF CARE TEST ING Performing Organization Address City/[facility]/ZIP Co de Phone Number [facility] Just[facility] CLVT# [id number] [address] [place] [address] * (ABNORMAL) POC GLUCOSE (02/05/2023 11:02 AM CDT) GLUCOSE POC 220(H) 74 - 99 mg/dL 02/05/2023 11:02 AM CDT [facility] - [facility] SPECIMEN SOURCE, GLUCOSE POC Whole Blood 02/05/2023 11:02 AM CDT [facility] LABORATORY SERVICES [facility] Blood, whole 02/05/2023 11:0 2 AM CDT 02/05/2023 11:12 AM CDT Zbigniew Marino MD POINT OF CARE TEST ING [facility] LABORATORY SERVICES [facility] CLIA# [id number] [address] [place] [address] * (ABNORMAL) POC GLUCOSE (02/05/2023 9:23 AM CDT) GLUCOSE POC 151(H) 74 - 99 mg/dL 02/05/2023 9:23 AM CDT [facility] LABORATORY SERVICES - [facility] SPECIMEN SOURCE, GLUCOSE POC Whole Blood 02/05/2023 9:23 AM CDT [facility] LABORATORY SERVICES - [facility] Blood, whole 02/05/2023 9:23 AM CDT 02/05/2023 9:38 AM CDT Zbigniew Marino MD POINT OF CARE TEST ING [facility] SERVICES - [facility] CLIA# [id number] [address] [place] [address] * (ABNORMAL) POC GLUCOSE (02/05/2023 5:10 AM CDT) GLUCOSE POC 103(H) 74 - 99 mg/dL 02/05/2023 5:10 AM CDT [facility] - [facility] SPECIMEN SOURCE, GLUCOSE POC Whole Blood 02/05/2023 5:10 AM CDT [facility] LABORATORY SERVICES - [facility] Blood, whole 02/05/2023 5:10 AM CDT 02/05/2023 5:17 AM CDT Zbigniew Marino MD POINT OF CARE TEST ING [facility] LABORATORY SERVICES [facility] CLIA# [id number] [address] [place] [address] * (ABNORMAL) POC GLUCOSE (02/05/2023 3:27 AM CDT) GLUCOSE POC 107(H) 74 - 99 mg/dL 02/05/2023 3:27 AM CDT [facility] - [facility] SPECIMEN SOURCE, GLUCOSE POC Whole Blood 02/05/2023 3:27 AM CDT [facility] Blood, whole 02/05/2023 3:27 AM CDT 02/05/2023 3:41 AM CDT Zbigniew Marino MD POINT OF CARE TEST ING [facility] CLIA# [id number] [address] [place] [address] * EKG 12-LEAD (02/05/2023 2:00 AM CDT) 02/05/2023 2:00 AM CDT Narrative INTERFACE SYSTEM - 02/05/2023 6:17 AM CDT ? Stationary ECG Study ? [facility] ? Test Date: ?02/05/2023 2:00 AM Pat Name: ? CHEY MENJIVAR ? Department: ?? 49 ?Room: ? 7150 1 Gender: ? F ?Dye Blender: ?? surmc1 : ?1995 ? Requested By: FRANK Varner Order Number: [id number] ? Reading MD: ?? Mann Burt ? Measurements Intervals ?[place] ? Rate: ? 76 ? P: ?50 CT: ? 123 ?QRS: ?82 QRSD: ? 79 ? T: ?11 QT: ? 351 ? QTc: ?395 ? Interpretive Statements ? Sinus rhythm Left atrial enlargement Nonspecific T Wave Abnormality Electronically Signed On 02-05-2023 6:17:36 CDT by Mann Burt Procedure Note Mann Burt MD - 02/05/2023 Stationary ECG Study [facility] Test Date: 02/05/2023 2:00 AM Pat Name: CHEY MENJIVAR Department: 49 Room: 71 1 Gender: F Dye Blender: [facility] : 1995 Requested By: FRANK Varner Order Number: [id number] Reading MD: Mann Burt Measurements Intervals [place] Rate: 76 P: 50 CT: 123 QRS: 82 QRSD: 79 T: 11 QT: 351 QTc: 395 Interpretive Statements Sinus rhythm Left atrial enlargement Nonspecific T Wave Abnormality Electronically Signed On 02-05-2023 6:17:36 CDT by Mann Burt Zbigniew Marino MD ECG ORDERABLES Performing Organization Address City/State/[facility] Co de Phone Number INTERFACE SYSTEM Refer to clinic/hospital department * XR CHEST PA OR AP 1 VW (02/05/2023 1:23 AM CDT) Anatomical Region Laterality Modality Chest Computed Radiogr aphy 02/05/2023 1:23 AM CDT Impressions 02/05/2023 7:17 AM CDT IMPRESSION: 1. Clear lungs. DICTATION LOCATION: Location [facility] Narrative 02/05/2023 7:17 AM CDT EXAMINATION: XR [...] None. IMPRESSION: 1. Clear lungs. DICTATION LOCATION: Location [address] [place] [address] Zbigniew Marino MD DIAGNOSTIC IMAGING ORDERABLES * (ABNORMAL) CBC WITHOUT DIFFERENTIAL (02/05/2023 1:10 AM CDT) [facility] WBC 9.1 4.0 - 9.8 K/uL 02/05/2023 1:23 AM CDT [facility] LABORATORY SERVICES - [facility] RBC 3.61(L) 3.90 - 4.90 M/uL 02/05/2023 1:23 AM CDT [facility] LABORATORY SERVICES - [facility] HEMOGLOBIN 9.4(L) 11.8 - 14.8 g/dL 02/05/2023 1:23 AM CDT [facility] LABORATORY SERVICES - [facility] HEMATOCRIT 30.3(L) 35.5 - 44.0 % 02/05/2023 1:23 AM CDT [facility] LABORATORY SERVICES - [facility] MCV 83.9 82.0 - 99.0 fL 02/05/2023 1:23 AM CDT [facility] LABORATORY SERVICES - [facility] MCH 26.0(L) 27.2 - 32.6 pg 02/05/2023 1:23 AM CDT [facility] LABORATORY SERVICES - [facility] MCHC 31.0(L) 31.5 - 35.5 g/dL 02/05/2023 1:23 AM CDT [facility] LABORATORY SERVICES - [facility] PLATELETS 266 140 - 350 K/uL 02/05/2023 1:23 AM CDT [facility] LABORATORY SERVICES - [facility] MPV 9.4 9.3 - 12.4 fL 02/05/2023 1:23 AM CDT [facility] LABORATORY SERVICES - [facility] RDW 18.5(H) 11.5 - 14.5 % 02/05/2023 1:23 AM CDT [facility] LABORATORY SERVICES - [facility] RDW-STDEV 50.0(H) 37.1 - 48.7 fL 02/05/2023 1:23 AM CDT [facility] LABORATORY SERVICES - [facility] Blood Venipuncture / Unknown 02/05/2023 1:10 AM CDT 02/05/2023 1:16 AM CDT Zbigniew Marino MD HEMATOLOGY ORDERAB LES [facility] LABORATORY SERVICES - [facility] CLIA# [id number] [address] [place] [address] * (ABNORMAL) COMPREHENSIVE METABOLIC PANEL (02/05/2023 1:09 AM CDT) SODIUM 138 136 - 145 mmol/L 02/05/2023 1:46 AM T [facility]ATORY SERVICES - [facility] POTASSIUM 4.3 3.5 - 5.0 mmol/L 02/05/2023 1:46 AM [facility]ATORY SERVICES - [facility] CHLORIDE 101 98 - 107 mmol/L 02/05/2023 1:46 AM T [facility] - [facility] CO2 30(H) 22 - 29 mmol/L 02/05/2023 1:46 AM T [facility] - [facility] CALCIUM 8.8 8.6 - 10.2 mg/dL 02/05/2023 1:46 AM T [facility] - [facility] BUN 4(L) 6 - 20 mg/dL 02/05/2023 1:46 AM T [facility] - [facility] CREATININE 0.54 0.51 - 0.95 mg/dL 02/05/2023 1:46 AM T [facility] - [facility] GLUCOSE 68(L) 74 - 99 mg/dL 02/05/2023 1:46 AM T [facility] - [facility] TOTAL PROTEIN 5.5(L) 6.7 - 8.6 g/dL 02/05/2023 1:46 AM T [facility] - [facility] ALBUMIN 3.2(L) 3.5 - 5.2 g/dL 02/05/2023 1:46 AM T [facility] - [facility] BILIRUBIN TOTAL 0.2(L) 0.3 - 1.2 mg/dL 02/05/2023 1:46 AM CDT [facility] ALKALINE PHOSPHATASE 104 35 - 104 U/L 02/05/2023 1:46 AM T [facility] AST 23 <33 U/L 02/05/2023 1:46 AM CDT [facility] ALT 12 <34 U/L 02/05/2023 1:46 AM T [facility] GFR >60 >=60 mL/min/1.7 3 sq meter 02/05/2023 1:46 AM T [facility] Comment:eGFR calculated with 2020 CKD-EPI equation. Vegetarian diet, extremely high or low muscle mass, and may affect results. Cystatin C with Glomerular Filtration Rate is a suitable alternative for these patients. ANION GAP 7(L) 8 - 16 mmol/L 02/05/2023 1:46 AM T [facility] Blood Venipuncture / Unknown 02/05/2023 1:09 AM CDT 02/05/2023 1:16 AM CDT [facility] LABORATORY [facility] - 02/05/2023 1:46 AM CDT Samples containing indocyanine green cause interferences on Total and/or Direct Bilirubin and must not be measured. Zbigniew Marino MD CHEMISTRY ORDERABL ES [facility]# [id number] [address] [place] [address] * (ABNORMAL) POC GLUCOSE (02/04/2023 10:14 PM CDT) GLUCOSE POC 110(H) 74 - 99 mg/dL 02/04/2023 10:14 PM CDT [facility] SPECIMEN SOURCE, GLUCOSE POC Whole Blood 02/04/2023 10:14 PM CDT [facility] Blood, whole 02/04/2023 10:1 4 PM CDT 02/04/2023 11:31 PM CDT Zbigniew Marino MD POINT OF CARE TEST ING [facility]# [id number] [address] [place] [address] * (ABNORMAL) POC GLUCOSE (02/04/2023 8:51 PM CDT) GLUCOSE POC 110(H) 74 - 99 mg/dL 02/04/2023 8:51 PM CDT [facility] LABORATORY [facility] SPECIMEN SOURCE, GLUCOSE POC Whole Blood 02/04/2023 8:51 PM CDT [facility] LABORATORY [facility] Blood, whole 02/04/2023 8:51 PM CDT 02/04/2023 9:20 PM CDT Zbigniew Marino MD POINT OF CARE TEST ING Performing Organization Address [facility]/ZIP Co de Phone Number [facility] Justyle [facility]# [id number] [address] [place] [address] * (ABNORMAL) POC GLUCOSE (02/04/2023 7:27 PM CDT) GLUCOSE POC 125(H) 74 - 99 mg/dL 02/04/2023 7:27 PM CDT [facility] LABORATORY [facility] SPECIMEN SOURCE, GLUCOSE POC Whole Blood 02/04/2023 7:27 PM CDT [facility] LABORATORY [facility] Blood, whole 02/04/2023 7:27 PM CDT 02/04/2023 7:37 PM CDT Zbigniew Marino MD POINT OF CARE TEST ING Performing Organization Address City/[facility]/ZIP Co de Phone Number [facility]# [id number] [address] [place] [address] * (ABNORMAL) POC GLUCOSE (02/04/2023 4:42 PM CDT) GLUCOSE POC 156(H) 74 - 99 mg/dL 02/04/2023 4:42 PM CDT [facility] LABORATORY SERVICES - [facility] SPECIMEN SOURCE, GLUCOSE POC Whole Blood 02/04/2023 4:42 PM CDT [facility] LABORATORY SERVICES - [facility] Blood, whole 02/04/2023 4:42 PM CDT 02/04/2023 4:50 PM CDT Zbigniew Marino MD POINT OF CARE TEST ING [facility] CLIA# [id number] [address] [place] [address] * (ABNORMAL) POC GLUCOSE (02/04/2023 3:30 PM CDT) GLUCOSE POC 176(H) 74 - 99 mg/dL 02/04/2023 3:30 PM CDT [facility] LABORATORY SERVICES [facility] SPECIMEN SOURCE, GLUCOSE POC Whole Blood 02/04/2023 3:30 PM CDT [facility] LABORATORY [facility] Blood, whole 02/04/2023 3:30 PM CDT 02/04/2023 3:38 PM CDT Zbigniew Marino MD POINT OF CARE TEST ING [facility] CLIA# [id number] [address] [place] [address] * (ABNORMAL) POC GLUCOSE (02/04/2023 2:38 PM CDT) GLUCOSE POC 223(H) 74 - 99 mg/dL 02/04/2023 2:38 PM CDT [facility] LABORATORY SERVICES - [facility] SPECIMEN SOURCE, GLUCOSE POC Whole Blood 02/04/2023 2:38 PM CDT [facility] LABORATORY SERVICES - [facility] Blood, whole 02/04/2023 2:38 PM CDT 02/04/2023 2:45 PM CDT Zbigniew Marino MD POINT OF CARE TEST ING [facility]# [id number] [address] [place] [address] * (ABNORMAL) POC GLUCOSE (02/04/2023 2:01 PM CDT) GLUCOSE POC 244(H) 74 - 99 mg/dL 02/04/2023 2:01 PM CDT [facility] LABORATORY SERVICES [facility] SPECIMEN SOURCE, GLUCOSE POC Whole Blood 02/04/2023 2:01 PM CDT [facility] LABORATORY [facility] Blood, whole 02/04/2023 2:01 PM CDT 02/04/2023 2:09 PM CDT Zbigniew Marino MD POINT OF CARE TEST ING Performing Organization Address [facility]/ZIP Co de Phone Number [facility] Just[facility]# [id number] [address] [place] [address] * (ABNORMAL) POC GLUCOSE (02/04/2023 1:49 PM CDT) GLUCOSE POC 249(H) 74 - 99 mg/dL 02/04/2023 1:49 PM CDT [facility] LABORATORY [facility] SPECIMEN SOURCE, GLUCOSE POC Whole Blood 02/04/2023 1:49 PM CDT [facility] LABORATORY [facility] Blood, whole 02/04/2023 1:49 PM CDT 02/04/2023 1:57 PM CDT Zbigniew Marino MD POINT OF CARE TEST ING Performing Organization Address City/[facility]/ZIP Co de Phone Number [facility]# [id number] [address] [place] [address] * (ABNORMAL) POC GLUCOSE (02/04/2023 11:37 AM CDT) GLUCOSE POC 173(H) 74 - 99 mg/dL 02/04/2023 11:37 AM CDT [facility] LABORATORY SERVICES - [facility] SPECIMEN SOURCE, GLUCOSE POC Whole Blood 02/04/2023 11:37 AM CDT [facility] LABORATORY SERVICES - [facility] Blood, whole 02/04/2023 11:3 7 AM CDT 02/04/2023 11:46 AM CDT Zbigniew Marino MD POINT OF CARE TEST ING [facility] CLIA# [id number] [address] [place] [address] * (ABNORMAL) POC GLUCOSE (02/04/2023 10:12 AM CDT) GLUCOSE POC 129(H) 74 - 99 mg/dL 02/04/2023 10:12 AM CDT [facility] LABORATORY [facility] SPECIMEN SOURCE, GLUCOSE POC Whole Blood 02/04/2023 10:12 AM CDT [facility] LABORATORY [facility] Blood, whole 02/04/2023 10:1 2 AM CDT 02/04/2023 10:27 AM CDT Zbigniew Marino MD POINT OF CARE TEST ING [facility] Justyle [facility] CLIA# [id number] [address] [place] [address] * (ABNORMAL) POC GLUCOSE (02/04/2023 7:03 AM CDT) GLUCOSE POC 114(H) 74 - 99 mg/dL 02/04/2023 7:03 AM CDT [facility] LABORATORY [facility] - [facility] SPECIMEN SOURCE, GLUCOSE POC Whole Blood 02/04/2023 7:03 AM CDT [facility] LABORATORY [facility] - [facility] Blood, whole 02/04/2023 7:03 AM CDT 02/04/2023 7:13 AM CDT Zbigniew Marino MD POINT OF CARE TEST ING [facility]# [id number] [address] [place] [address] * POC GLUCOSE (02/04/2023 6:31 AM CDT) GLUCOSE POC 90 74 - 99 mg/dL 02/04/2023 6:31 AM CDT [facility] LABORATORY [facility] SPECIMEN SOURCE, GLUCOSE POC Whole Blood 02/04/2023 6:31 AM CDT [facility] LABORATORY [facility] Blood, whole 02/04/2023 6:31 AM CDT 02/04/2023 6:39 AM CDT Zbigniew Marino MD POINT OF CARE TEST ING Performing Organization Address [facility]/ZIP Co de Phone Number [facility]# [id number] [address] [place] [address] * POC GLUCOSE (02/04/2023 6:05 AM CDT) GLUCOSE POC 79 74 - 99 mg/dL 02/04/2023 6:05 AM CDT [facility] LABORATORY [facility] SPECIMEN SOURCE, GLUCOSE POC Whole Blood 02/04/2023 6:05 AM CDT [facility] LABORATORY [facility] Blood, whole 02/04/2023 6:05 AM CDT 02/04/2023 6:14 AM CDT Zbigniew Marino MD POINT OF CARE TEST ING [facility]# [id number] [address] [place] [address] * (ABNORMAL) POC GLUCOSE (02/04/2023 5:43 AM CDT) GLUCOSE POC 57(L) 74 - 99 mg/dL 02/04/2023 5:43 AM CDT [employer] [facility] LABORATORY SERVICES - [facility] SPECIMEN SOURCE, GLUCOSE POC Whole Blood 02/04/2023 5:43 AM CDT [facility] LABORATORY SERVICES - [facility] COMMENT, GLU POC Notified RN/MD 02/04/2023 5:43 AM CDT [employer] [facility] LABORATORY SERVICES - [facility] Blood, whole 02/04/2023 5:43 AM CDT 02/04/2023 5:52 AM CDT Zbigniew Marino MD POINT OF CARE TEST ING [facility] LABORATORY SERVICES [facility] CLIA# [id number] [address] [place] [address] * (ABNORMAL) POC GLUCOSE (02/04/2023 5:26 AM CDT) GLUCOSE POC 56(L) 74 - 99 mg/dL 02/04/2023 5:26 AM CDT [facility] LABORATORY SERVICES - [facility] SPECIMEN SOURCE, GLUCOSE POC Whole Blood 02/04/2023 5:26 AM CDT [facility] LABORATORY SERVICES - [facility] COMMENT, GLU POC Notified RN/MD 02/04/2023 5:26 AM CDT [facility] LABORATORY SERVICES - [facility] Blood, whole 02/04/2023 5:26 AM CDT 02/04/2023 5:37 AM CDT Zbigniew Marino MD POINT OF CARE TEST ING [facility] SERVICES [facility] CLIA# [id number] [address] [place] [address] * POC GLUCOSE (02/03/2023 10:58 PM CDT) GLUCOSE POC 97 74 - 99 mg/dL 02/03/2023 10:58 PM CDT [facility] LABORATORY SERVICES - [facility] SPECIMEN SOURCE, GLUCOSE POC Whole Blood 02/03/2023 10:58 PM CDT [facility] LABORATORY SERVICES - [facility] Blood, whole 02/03/2023 10:5 8 PM CDT 02/03/2023 11:06 PM CDT Zbigniew Marino MD POINT OF CARE TEST ING [facility] LABORATORY [facility] CLIA# [id number] [address] [place] [address] * (ABNORMAL) POC GLUCOSE (02/03/2023 10:20 PM CDT) GLUCOSE POC 72(L) 74 - 99 mg/dL 02/03/2023 10:20 PM CDT [facility] LABORATORY SERVICES [facility] SPECIMEN SOURCE, GLUCOSE POC Whole Blood 02/03/2023 10:20 PM CDT [facility] Blood, whole 02/03/2023 10:2 0 PM CDT 02/03/2023 10:31 PM CDT Zbigniew Marino MD POINT OF CARE TEST ING Performing Organization Address City/[facility]/ZIP Co de Phone Number [facility] CLIA# [id number] [address] [place] [address] * POC GLUCOSE (02/03/2023 9:50 PM CDT) GLUCOSE POC 74 74 - 99 mg/dL 02/03/2023 9:50 PM CDT [facility] LABORATORY SERVICES - [facility] SPECIMEN SOURCE, GLUCOSE POC Whole Blood 02/03/2023 9:50 PM CDT [facility] Blood, whole 02/03/2023 9:50 PM CDT 02/03/2023 9:58 PM CDT Zbigniew Marino MD POINT OF CARE TEST ING [facility] LABORATORY [facility] CLIA# [id number] [address] [place] [address] * POC GLUCOSE (02/03/2023 9:17 PM CDT) GLUCOSE POC 74 74 - 99 mg/dL 02/03/2023 9:17 PM CDT [facility] LABORATORY SERVICES - [facility] SPECIMEN SOURCE, GLUCOSE POC Whole Blood 02/03/2023 9:17 PM CDT [facility] LABORATORY SERVICES - [facility] Blood, whole 02/03/2023 9:17 PM CDT 02/03/2023 9:26 PM CDT Zbigniew Marino MD POINT OF CARE TEST ING [facility] CLIA# [id number] [address] [place] [address] * (ABNORMAL) POC GLUCOSE (02/03/2023 8:59 PM CDT) GLUCOSE POC 62(L) 74 - 99 mg/dL 02/03/2023 8:59 PM CDT [facility] LABORATORY SERVICES - [facility] SPECIMEN SOURCE, GLUCOSE POC Whole Blood 02/03/2023 8:59 PM CDT [facility] LABORATORY SERVICES - [facility] COMMENT, GLU POC Notified RN/MD 02/03/2023 8:59 PM CDT [facility] LABORATORY SERVICES - [facility] Blood, whole 02/03/2023 8:59 PM CDT 02/03/2023 9:07 PM CDT Zbigniew Marino MD POINT OF CARE TEST ING [facility] CLIA# [id number] [address] [place] [address] * POC GLUCOSE (02/03/2023 6:32 PM CDT) GLUCOSE POC 75 74 - 99 mg/dL 02/03/2023 6:32 PM CDT [facility] LABORATORY SERVICES [facility] SPECIMEN SOURCE, GLUCOSE POC Whole Blood 02/03/2023 6:32 PM CDT [facility] LABORATORY [facility] Blood, whole 02/03/2023 6:32 PM CDT 02/03/2023 6:45 PM CDT Zbigniew Marino MD POINT OF CARE TEST ING Performing Organization Address [facility]/ZIP Co de Phone Number [facility] CLIA# [id number] [address] [place] [address] * RPR (02/03/2023 5:07 PM CDT) RPR NON-REACTI VE Non-Reacti ve 02/04/2023 11:41 AM CDT [facility] LABORATORY [facility] Blood Venipuncture / Unknown 02/03/2023 5:07 PM CDT 02/03/2023 5:13 PM CDT Zbigniew Marino MD CHEMISTRY ORDERABL ES Performing Organization Address [facility] Center/[facility]/ZIP Co de Phone Number [facility] Justyle [facility] CLIA# [id number] [address] [place] [address] * (ABNORMAL) POC GLUCOSE (02/03/2023 3:48 PM CDT) GLUCOSE POC 138(H) 74 - 99 mg/dL 02/03/2023 3:48 PM CDT [facility] LABORATORY [facility] SPECIMEN SOURCE, GLUCOSE POC Whole Blood 02/03/2023 3:48 PM CDT [facility] LABORATORY [facility] Blood, whole 02/03/2023 3:48 PM CDT 02/03/2023 4:12 PM CDT Zbigniew Marino MD POINT OF CARE TEST ING Performing Organization Address City/[facility]/ZIP Co de Phone Number [facility] CLIA# [id number] [address] [place] [address] * (ABNORMAL) POC GLUCOSE (02/03/2023 2:14 PM CDT) GLUCOSE POC 141(H) 74 - 99 mg/dL 02/03/2023 2:14 PM CDT [facility] LABORATORY SERVICES - [facility] SPECIMEN SOURCE, GLUCOSE POC Whole Blood 02/03/2023 2:14 PM CDT [facility] LABORATORY SERVICES - [facility] Blood, whole 02/03/2023 2:14 PM CDT 02/03/2023 2:22 PM CDT Zbigniew Marino MD POINT OF CARE TEST ING Performing Organization Address City/[facility]/ZIP Co de Phone Number [facility] Justyle [facility]# [id number] [address] [place] [address] * (ABNORMAL) POC GLUCOSE (02/03/2023 12:49 PM CDT) GLUCOSE POC 193(H) 74 - 99 mg/dL 02/03/2023 12:49 PM CDT [facility] LABORATORY [facility] SPECIMEN SOURCE, GLUCOSE POC Whole Blood 02/03/2023 12:49 PM CDT [facility] LABORATORY [facility] Blood, whole 02/03/2023 12:4 9 PM CDT 02/03/2023 12:57 PM CDT Zbigniew Marino MD POINT OF CARE TEST ING [facility]# [id number] [address] [place] [address] * (ABNORMAL) POC GLUCOSE (02/03/2023 11:59 AM CDT) GLUCOSE POC 177(H) 74 - 99 mg/dL 02/03/2023 11:59 AM CDT [facility] LABORATORY [facility] SPECIMEN SOURCE, GLUCOSE POC Whole Blood 02/03/2023 11:59 AM CDT [facility] LABORATORY SERVICES [facility] Blood, whole 02/03/2023 11:5 9 AM CDT 02/03/2023 12:07 PM CDT Zbigniew Marino MD POINT OF CARE TEST ING [facility] LABORATORY [facility] CLIA# [id number] [address] [place] [address] * (ABNORMAL) POC GLUCOSE (02/03/2023 10:30 AM CDT) GLUCOSE POC 136(H) 74 - 99 mg/dL 02/03/2023 10:30 AM CDT [facility] LABORATORY SERVICES [facility] SPECIMEN SOURCE, GLUCOSE POC Whole Blood 02/03/2023 10:30 AM CDT [facility] Blood, whole 02/03/2023 10:3 0 AM CDT 02/03/2023 10:37 AM CDT Zbigniew Marino MD POINT OF CARE TEST ING Performing Organization Address [facility]/ZIP Co de Phone Number [facility] Just[facility] CLIA# [id number] [address] [place] [address] * (ABNORMAL) POC GLUCOSE (02/03/2023 5:47 AM CDT) GLUCOSE POC 121(H) 74 - 99 mg/dL 02/03/2023 5:47 AM CDT [facility] LABORATORY SERVICES [facility] SPECIMEN SOURCE, GLUCOSE POC Whole Blood 02/03/2023 5:47 AM CDT [facility] LABORATORY [facility] Blood, whole 02/03/2023 5:47 AM CDT 02/03/2023 5:57 AM CDT Zbigniew Marino MD POINT OF CARE TEST ING [facility] LABORATORY [facility] CLIA# [id number] [address] [place] [address] * (ABNORMAL) POC GLUCOSE (02/03/2023 4:08 AM CDT) GLUCOSE POC 102(H) 74 - 99 mg/dL 02/03/2023 4:08 AM CDT [facility] LABORATORY SERVICES - [facility] SPECIMEN SOURCE, GLUCOSE POC Whole Blood 02/03/2023 4:08 AM CDT [facility] LABORATORY SERVICES - [facility] Blood, whole 02/03/2023 4:08 AM CDT 02/03/2023 4:17 AM CDT Zbigniew Marino MD POINT OF CARE TEST ING [facility] Just[facility] CLIA# [id number] [address] [place] [address] * POC GLUCOSE (02/03/2023 2:53 AM CDT) GLUCOSE POC 81 74 - 99 mg/dL 02/03/2023 2:53 AM CDT [facility] LABORATORY SERVICES - [facility] SPECIMEN SOURCE, GLUCOSE POC Whole Blood 02/03/2023 2:53 AM CDT [facility] LABORATORY SERVICES - [facility] Blood, whole 02/03/2023 2:53 AM CDT 02/03/2023 3:06 AM CDT Zbigniew Marino MD POINT OF CARE TEST ING [facility] Just[facility] CLIA# [id number] [address] [place] [address] * POC GLUCOSE (02/03/2023 2:08 AM CDT) GLUCOSE POC 79 74 - 99 mg/dL 02/03/2023 2:08 AM CDT [facility] - [facility] SPECIMEN SOURCE, GLUCOSE POC Whole Blood 02/03/2023 2:08 AM CDT [facility] - [facility] Blood, whole 02/03/2023 2:08 AM CDT 02/03/2023 2:23 AM CDT Zbigniew Marino MD POINT OF CARE TEST ING Performing Organization Address [facility] Co de Phone Number [facility] Just[facility]# [id number] [address] [place] [address] * (ABNORMAL) POC GLUCOSE (02/03/2023 1:52 AM CDT) GLUCOSE POC 56(L) 74 - 99 mg/dL 02/03/2023 1:52 AM CDT [facility] LABORATORY SERVICES - [facility] SPECIMEN SOURCE, GLUCOSE POC Whole Blood 02/03/2023 1:52 AM CDT [facility] LABORATORY SERVICES - [facility] COMMENT, GLU POC Notified RN/MD 02/03/2023 1:52 AM CDT [facility] LABORATORY SERVICES [facility] COMMENT 2, GLU POC To be Repeated 02/03/2023 1:52 AM CDT [facility] LABORATORY SERVICES [facility] Blood, whole 02/03/2023 1:52 AM CDT 02/03/2023 2:01 AM CDT Zbigniew Marino MD POINT OF CARE TEST ING Performing Organization Address [facility] Co de Phone Number [facility] [id number] [address] [place] [address] * (ABNORMAL) POC GLUCOSE (02/03/2023 12:58 AM CDT) GLUCOSE POC 52(L) 74 - 99 mg/dL 02/03/2023 12:58 AM CDT [facility] LABORATORY SERVICES [facility] SPECIMEN SOURCE, GLUCOSE POC Whole Blood 02/03/2023 12:58 AM CDT [facility] LABORATORY SERVICES [facility] COMMENT, GLU POC Notified RN/MD 02/03/2023 12:58 AM CDT [facility] Blood, whole 02/03/2023 12:5 8 AM CDT 02/03/2023 1:07 AM CDT Zbigniew Marino MD POINT OF CARE TEST ING [facility] CLIA# [id number] [address] [place] [address] * (ABNORMAL) POC GLUCOSE (02/03/2023 12:26 AM CDT) GLUCOSE POC 53(L) 74 - 99 mg/dL 02/03/2023 12:26 AM CDT [facility] LABORATORY SERVICES - [facility] SPECIMEN SOURCE, GLUCOSE POC Whole Blood 02/03/2023 12:26 AM CDT [facility] LABORATORY SERVICES - [facility] COMMENT, GLU POC Notified RN/MD 02/03/2023 12:26 AM CDT [facility] LABORATORY SERVICES - [facility] Blood, whole 02/03/2023 12:2 6 AM CDT 02/03/2023 12:39 AM CDT Zbigniew Marino MD POINT OF CARE TEST ING Performing Organization Address [facility]/ZIP Co de Phone Number [facility] Just[facility] CLIA# [id number] [address] [place] [address] * (ABNORMAL) POC GLUCOSE (02/02/2023 10:57 PM CDT) GLUCOSE POC 72(L) 74 - 99 mg/dL 02/02/2023 10:57 PM CDT [facility] LABORATORY SERVICES - [facility] SPECIMEN SOURCE, GLUCOSE POC Whole Blood 02/02/2023 10:57 PM CDT [facility] LABORATORY SERVICES - [facility] Blood, whole 02/02/2023 10:5 7 PM CDT 02/02/2023 11:06 PM CDT Zbigniew Marino MD POINT OF CARE TEST ING [facility] LABORATORY [facility] CLIA# [id number] [address] [place] [address] * (ABNORMAL) POC GLUCOSE (02/02/2023 10:33 PM CDT) GLUCOSE POC 53(L) 74 - 99 mg/dL 02/02/2023 10:33 PM CDT [facility] LABORATORY SERVICES [facility] SPECIMEN SOURCE, GLUCOSE POC Whole Blood 02/02/2023 10:33 PM CDT [facility] LABORATORY SERVICES [facility] COMMENT, GLU POC Notified RN/MD 02/02/2023 10:33 PM CDT [facility] LABORATORY SERVICES [facility] Blood, whole 02/02/2023 10:3 3 PM CDT 02/02/2023 10:45 PM CDT Zbigniew Marino MD POINT OF CARE TEST ING Performing Organization Address [facility]/ZIP Co de Phone Number [facility] CLIA# [id number] [address] [place] [address] * (ABNORMAL) POC GLUCOSE (02/02/2023 10:12 PM CDT) GLUCOSE POC 59(L) 74 - 99 mg/dL 02/02/2023 10:12 PM CDT [facility] LABORATORY [facility] SPECIMEN SOURCE, GLUCOSE POC Whole Blood 02/02/2023 10:12 PM CDT [facility] LABORATORY [facility] COMMENT, GLU POC Notified RN/ 02/02/2023 10:12 PM CDT [facility] LABORATORY SERVICES [facility] Blood, whole 02/02/2023 10:1 2 PM CDT 02/02/2023 10:33 PM CDT Zbigniew Marino MD POINT OF CARE TEST ING Performing Organization Address City/[facility]/ZIP Co de Phone Number [facility] CLIA# [id number] [address] [place] [address] * (ABNORMAL) POC GLUCOSE (02/02/2023 8:50 PM CDT) GLUCOSE POC 73(L) 74 - 99 mg/dL 02/02/2023 8:50 PM CDT [employer] [facility] [employer] LABORATORY SERVICES - [facility] SPECIMEN SOURCE, GLUCOSE POC Whole Blood 02/02/2023 8:50 PM CDT [facility] LABORATORY SERVICES - [facility] Blood, whole 02/02/2023 8:50 PM CDT 02/02/2023 9:21 PM CDT Zbigniew Marino MD POINT OF CARE TEST ING Performing Organization Address [facility]/ZIP Co de Phone Number [facility] LABORATORY [facility] CLIA# [id number] [address] [place] [address] * (ABNORMAL) POC GLUCOSE (02/02/2023 8:25 PM CDT) GLUCOSE POC 63(L) 74 - 99 mg/dL 02/02/2023 8:25 PM CDT [facility] LABORATORY SERVICES - [facility] SPECIMEN SOURCE, GLUCOSE POC Whole Blood 02/02/2023 8:25 PM CDT [facility] LABORATORY SERVICES [facility] COMMENT, GLU POC Notified RN/MD 02/02/2023 8:25 PM CDT [facility] LABORATORY SERVICES [facility] Blood, whole 02/02/2023 8:25 PM CDT 02/02/2023 8:53 PM CDT Zbigniew Marino MD POINT OF CARE TEST ING Performing Organization Address City/[facility]/ZIP Co de Phone Number [facility] LABORATORY SERVICES [facility] CLIA# [id number] [address] [place] [address] * (ABNORMAL) POC GLUCOSE (02/02/2023 8:02 PM CDT) GLUCOSE POC 56(L) 74 - 99 mg/dL 02/02/2023 8:02 PM CDT [facility] LABORATORY SERVICES [facility] SPECIMEN SOURCE, GLUCOSE POC Whole Blood 02/02/2023 8:02 PM CDT [facility] LABORATORY SERVICES [facility] COMMENT, GLU POC Notified RN/MD 02/02/2023 8:02 PM CDT [facility] - [facility] Blood, whole 02/02/2023 8:02 PM CDT 02/02/2023 8:53 PM CDT Zbigniew Marino MD POINT OF CARE TEST ING Performing Organization Address City/[facility]/ZIP Co de Phone Number [facility] Just[facility] CLIA# [id number] [address] [place] [address] * (ABNORMAL) POC GLUCOSE (02/02/2023 4:19 PM CDT) GLUCOSE POC 100(H) 74 - 99 mg/dL 02/02/2023 4:19 PM CDT [facility] - [facility] SPECIMEN SOURCE, GLUCOSE POC Whole Blood 02/02/2023 4:19 PM CDT [facility] - [facility] Blood, whole 02/02/2023 4:19 PM CDT 02/02/2023 4:26 PM CDT Zbigniew Marino MD POINT OF CARE TEST ING Performing Organization Address [facility]/ZIP Co de Phone Number [facility] Just[facility] CLIA# [id number] [address] [place] [address] * POC GLUCOSE (02/02/2023 3:09 PM CDT) GLUCOSE POC 81 74 - 99 mg/dL 02/02/2023 3:09 PM CDT [facility] LABORATORY SERVICES - [facility] SPECIMEN SOURCE, GLUCOSE POC Whole Blood 02/02/2023 3:09 PM CDT [facility] LABORATORY SERVICES - [facility] COMMENT, GLU POC Notified MARY/ 02/02/2023 3:09 PM CDT [facility] - [facility] Blood, whole 02/02/2023 3:09 PM CDT 02/02/2023 3:23 PM CDT Zbigniew Marino MD POINT OF CARE TEST ING [facility] Just[facility] CLIA# [id number] [address] [place] [address] * POC GLUCOSE (02/02/2023 10:59 AM CDT) GLUCOSE POC 83 74 - 99 mg/dL 02/02/2023 10:59 AM CDT [facility] LABORATORY [facility] SPECIMEN SOURCE, GLUCOSE POC Whole Blood 02/02/2023 10:59 AM CDT [facility] LABORATORY SERVICES [facility] COMMENT, GLU POC Notified RN/MD 02/02/2023 10:59 AM CDT [facility] LABORATORY [facility] Blood, whole 02/02/2023 10:5 9 AM CDT 02/02/2023 11:11 AM CDT Zbigniew Marino MD POINT OF CARE TEST ING Performing Organization Address [facility]/ZIP Co de Phone Number [facility] Just[facility] CLIA# [id number] [address] [place] [address] * POC GLUCOSE (02/02/2023 9:34 AM CDT) GLUCOSE POC 79 74 - 99 mg/dL 02/02/2023 9:34 AM CDT [facility] LABORATORY [facility] SPECIMEN SOURCE, GLUCOSE POC Whole Blood 02/02/2023 9:34 AM CDT [facility] LABORATORY [facility] Blood, whole 02/02/2023 9:34 AM CDT 02/02/2023 9:51 AM CDT Zbigniew Marino MD POINT OF CARE TEST ING [facility] Just[facility] CLIA# [id number] [address] [place] [address] * PHOSPHORUS (02/02/2023 9:09 AM CDT) PHOSPHORUS 3.1 2.5 - 4.5 mg/dL 02/02/2023 10:02 AM CDT [facility] LABORATORY SERVICES [facility] Blood Venipuncture / Unknown 02/02/2023 9:09 AM CDT 02/02/2023 9:14 AM CDT Zbigniew Marino MD CHEMISTRY ORDERABL ES Performing Organization Address City/[facility]/ZIP Co de Phone Number [facility] Just[facility]# [id number] [address] [facility] [address] * MAGNESIUM LEVEL (02/02/2023 9:09 AM CDT) MAGNESIUM 1.9 1.6 - 2.6 mg/dL 02/02/2023 10:02 AM CDT [facility] LABORATORY SERVICES [facility] Blood Venipuncture / Unknown 02/02/2023 9:09 AM CDT 02/02/2023 9:14 AM CDT Zbigniew Marino MD CHEMISTRY ORDERABL ES Performing Organization Address City/[facility]/ZIP Co de Phone Number [facility] Just[facility]# [id number] [address] [place] [address] [place] [address] * (ABNORMAL) BASIC METABOLIC PANEL (02/02/2023 9:09 AM CDT) SODIUM 136 136 - 145 mmol/L 02/02/2023 10:02 AM CDT [facility] LABORATORY SERVICES - [facility] POTASSIUM 3.6 3.5 - 5.0 mmol/L 02/02/2023 10:02 AM CDT [facility] LABORATORY SERVICES - . [facility] CHLORIDE 104 98 - 107 mmol/L 02/02/2023 10:02 AM CDT [facility] LABORATORY SERVICES - . [facility] CO2 24 22 - 29 mmol/L 02/02/2023 10:02 AM CDT [facility] LABORATORY SERVICES - . [facility] CALCIUM 8.8 8.6 - 10.2 mg/dL 02/02/2023 10:02 AM CDT [facility] LABORATORY SERVICES - . [facility] BUN 3(L) 6 - 20 mg/dL 02/02/2023 10:02 AM [facility] LABORATORY [facility] CREATININE 0.50(L) 0.51 - 0.95 mg/dL 02/02/2023 10:02 AM [facility] LABORATORY [facility] GLUCOSE 76 74 - 99 mg/dL 02/02/2023 10:02 AM [facility] LABORATORY [facility] GFR >60 >=60 mL/min/1.7 3 sq meter 02/02/2023 10:02 AM [facility] LABORATORY SERVICES [facility] Comment:eGFR calculated with 2020 CKD-EPI equation. Vegetarian diet, extremely high or low muscle mass, and may affect results. Cystatin C with Glomerular Filtration Rate is a suitable alternative for these patients. ANION GAP 8 8 - 16 mmol/L 02/02/2023 10:02 AM [facility] LABORATORY [facility] Blood Venipuncture / Unknown 02/02/2023 9:09 AM CDT 02/02/2023 9:14 AM CDT Zbigniew Marino MD CHEMISTRY ORDERABL ES [facility] Just[facility]# [id number] [address] [facility] [place] [address] * POC GLUCOSE (02/02/2023 8:08 AM CDT) GLUCOSE POC 77 74 - 99 mg/dL 02/02/2023 8:08 AM CDT [facility] LABORATORY [facility] SPECIMEN SOURCE, GLUCOSE POC Whole Blood 02/02/2023 8:08 AM CDT [facility] LABORATORY [facility] COMMENT, GLU POC Notified RN/ 02/02/2023 8:08 AM CDT [facility] Blood, whole 02/02/2023 8:08 AM CDT 02/02/2023 8:22 AM CDT Zbigniew Marino MD POINT OF CARE TEST ING [facility] [id number] [address] [place] [address] * POC GLUCOSE (02/02/2023 5:57 AM CDT) [facility] GLUCOSE POC 91 74 - 99 mg/dL 02/02/2023 5:57 AM CDT [facility] LABORATORY SERVICES - [facility] SPECIMEN SOURCE, GLUCOSE POC Whole Blood 02/02/2023 5:57 AM CDT [facility] LABORATORY SERVICES - [facility] Blood, whole 02/02/2023 5:57 AM CDT 02/02/2023 6:04 AM CDT Zbigniew Marino MD POINT OF CARE TEST ING [employer] [facility] Justyle [facility] CLIA# [id number] [address] [place] [address] * (ABNORMAL) CBC WITH DIFFERENTIAL (02/02/2023 4:55 AM CDT) [facility] WBC 5.5 4.0 - 9.8 K/uL 02/02/2023 5:46 AM CDT [facility] LABORATORY SERVICES - [facility] RBC 3.15(L) 3.90 - 4.90 M/uL 02/02/2023 5:46 AM CDT [facility] LABORATORY SERVICES - [facility] HEMOGLOBIN 8.3(L) 11.8 - 14.8 g/dL 02/02/2023 5:46 AM CDT [facility] LABORATORY SERVICES - [facility] HEMATOCRIT 25.9(L) 35.5 - 44.0 % 02/02/2023 5:46 AM CDT [facility] LABORATORY SERVICES - [facility] MCV 82.2 82.0 - 99.0 fL 02/02/2023 5:46 AM CDT [facility] LABORATORY SERVICES - [facility] MCH 26.3(L) 27.2 - 32.6 pg 02/02/2023 5:46 AM CDT [facility] LABORATORY SERVICES - [facility] MCHC 32.0 31.5 - 35.5 g/dL 02/02/2023 5:46 AM CDT [facility] LABORATORY SERVICES - [facility] RDW 16.8(H) 11.5 - 14.5 % 02/02/2023 5:46 AM CDT [facility] LABORATORY SERVICES - [facility] RDW-STDEV 48.6 37.1 - 48.7 fL 02/02/2023 5:46 AM CDT [facility] LABORATORY SERVICES - [facility] PLATELETS 213 140 - 350 K/uL 02/02/2023 5:46 AM CDT [facility]ATORY SERVICES - [facility] MPV 9.7 9.3 - 12.4 fL 02/02/2023 5:46 AM CDT [facility] SERVICES - [facility] NEUTROPHILS 49 % 02/02/2023 5:46 AM CDT [facility] - [facility] LYMPHOCYTES 38 % 02/02/2023 5:46 AM CDT [facility] - [facility] MONOCYTES 9 % 02/02/2023 5:46 AM CDT [facility] - [facility] EOSINOPHILS 1 % 02/02/2023 5:46 AM CDT [facility] - [facility] BASOPHILS 0 % 02/02/2023 5:46 AM CDT [facility] - [facility] IMMATURE GRANULOCYTES 3 % 02/02/2023 5:46 AM CDT [facility] - [facility] Comment:IG (Immature Granulo cyte) count includes Metamyelocytes, Myelocytes, and Promyelocytes NEUTROPHIL ABSOLUTE 2.69 1.90 - 7.00 K/uL 02/02/2023 5:46 AM CDT [facility] LABORATORY SERVICES - [facility] LYMPHOCYTE ABSOLUTE 2.12 0.70 - 4.50 K/uL 02/02/2023 5:46 AM CDT [facility]ATORY SERVICES - [facility] MONOCYTE ABSOLUTE 0.52 0.10 - 1.30 K/uL 02/02/2023 5:46 AM CDT [facility]ATORY SERVICES - [facility] EOSINOPHIL ABSOLUTE 0.03 0.00 - 0.70 K/uL 02/02/2023 5:46 AM CDT [facility]ORY SERVICES - [facility] BASOPHILS ABSOLUTE 0.02 0.00 - 0.20 K/uL 02/02/2023 5:46 AM CDT [facility]ATORY SERVICES - [facility] IMMATURE GRANULOCYTES ABSOLUTE 0.16(H) 0.00 - 0.03 K/uL 02/02/2023 5:46 AM CDT [facility] LABORATORY SERVICES - [facility] Blood Venipuncture / Unknown 02/02/2023 4:55 AM CDT 02/02/2023 5:03 AM CDT Manuel Goldstein MD HEMATOLOGY ORDERABLE S [facility] LABORATORY [facility] CLIA# [id number] [address] [address] * POC GLUCOSE (02/02/2023 3:59 AM CDT) GLUCOSE POC 74 74 - 99 mg/dL 02/02/2023 3:59 AM CDT [facility] LABORATORY SERVICES - [facility] SPECIMEN SOURCE, GLUCOSE POC Whole Blood 02/02/2023 3:59 AM CDT [facility] Blood, whole 02/02/2023 3:59 AM CDT 02/02/2023 4:08 AM CDT Zbigniew Marino MD POINT OF CARE TEST ING Performing Organization Address [facility] Co de Phone Number [facility] [employer] CLIA# [id number] [address] [address] * POC GLUCOSE (02/02/2023 2:01 AM CDT) GLUCOSE POC 75 74 - 99 mg/dL 02/02/2023 2:01 AM CDT [facility] LABORATORY SERVICES - [facility] SPECIMEN SOURCE, GLUCOSE POC Whole Blood 02/02/2023 2:01 AM CDT [facility] LABORATORY [facility] - [facility] Blood, whole 02/02/2023 2:01 AM CDT 02/02/2023 2:08 AM CDT Zbigniew Marino MD POINT OF CARE TEST ING Performing Organization Address City/[facility]/ZIP Co de Phone Number [facility] CLIA# [id number] [address] [place] [address] * POC GLUCOSE (02/02/2023 1:31 AM CDT) GLUCOSE POC 84 74 - 99 mg/dL 02/02/2023 1:31 AM CDT [facility] LABORATORY SERVICES - [facility] SPECIMEN SOURCE, GLUCOSE POC Whole Blood 02/02/2023 1:31 AM CDT [facility] LABORATORY SERVICES - [facility] Blood, whole 02/02/2023 1:31 AM CDT 02/02/2023 1:41 AM CDT Zbigniew Marino MD POINT OF CARE TEST ING Performing Organization Address City/[facility]/ZIP Co de Phone Number [facility] CLIA# [id number] [address] [place] [address] * POC GLUCOSE (02/02/2023 1:01 AM CDT) GLUCOSE POC 83 74 - 99 mg/dL 02/02/2023 1:01 AM CDT [facility] LABORATORY SERVICES - [facility] SPECIMEN SOURCE, GLUCOSE POC Whole Blood 02/02/2023 1:01 AM CDT [facility] LABORATORY [facility] Blood, whole 02/02/2023 1:01 AM CDT 02/02/2023 1:10 AM CDT Zbigniew Marino MD POINT OF CARE TEST ING [facility] CLIA# [id number] [address] [place] [address] * (ABNORMAL) POC GLUCOSE (02/02/2023 12:33 AM CDT) GLUCOSE POC 70(L) 74 - 99 mg/dL 02/02/2023 12:33 AM CDT [facility] - [facility] SPECIMEN SOURCE, GLUCOSE POC Whole Blood 02/02/2023 12:33 AM CDT [facility] Blood, whole 02/02/2023 12:3 3 AM CDT 02/02/2023 12:41 AM CDT Zbigniew Marino MD POINT OF CARE TEST ING Performing Organization Address [facility] Co de Phone Number [facility] CLIA# [id number] [address] [place] [address] * (ABNORMAL) POC GLUCOSE (02/02/2023 12:14 AM CDT) GLUCOSE POC 59(L) 74 - 99 mg/dL 02/02/2023 12:14 AM CDT [employer] LABORATORY SERVICES [facility] SPECIMEN SOURCE, GLUCOSE POC Whole Blood 02/02/2023 12:14 AM CDT [facility] COMMENT, GLU POC To be Repeated 02/02/2023 12:14 AM CDT [facility] LABORATORY SERVICES [facility] Blood, whole 02/02/2023 12:1 4 AM CDT 02/02/2023 12:24 AM CDT Zbigniew Marino MD POINT OF CARE TEST ING Performing Organization Address [facility] Co de Phone Number [facility] Justyle [facility]# [id number] [address] [place] [address] * (ABNORMAL) POC GLUCOSE (02/01/2023 11:51 PM CDT) GLUCOSE POC 63(L) 74 - 99 mg/dL 02/01/2023 11:51 PM CDT [facility] LABORATORY SERVICES [facility] SPECIMEN SOURCE, GLUCOSE POC Whole Blood 02/01/2023 11:51 PM CDT [employer] LABORATORY SERVICES [facility] COMMENT, GLU POC To be Repeated 02/01/2023 11:51 PM CDT [facility] Blood, whole 02/01/2023 11:5 1 PM CDT 02/02/2023 12:00 AM CDT Zbigniew Marino MD POINT OF CARE TEST ING Performing Organization Address [facility]/ZIP Co de Phone Number [facility] [id number] [address] [place] [address] * POC GLUCOSE (02/01/2023 9:55 PM CDT) GLUCOSE POC 88 74 - 99 mg/dL 02/01/2023 9:55 PM CDT [facility] LABORATORY [facility] SPECIMEN SOURCE, GLUCOSE POC Whole Blood 02/01/2023 9:55 PM CDT [facility] LABORATORY [facility] Blood, whole 02/01/2023 9:55 PM CDT 02/01/2023 10:03 PM CDT Zbigniew Marino MD POINT OF CARE TEST ING Performing Organization Address [facility]/ZIP Co de Phone Number [facility] Just[facility] CLVT# [id number] [address] [place] [address] * PHOSPHORUS (02/01/2023 9:30 PM CDT) PHOSPHORUS 3.1 2.5 - 4.5 mg/dL 02/01/2023 10:27 PM CDT [facility] Blood Venipuncture / Unknown 02/01/2023 9:30 PM CDT 02/01/2023 9:40 PM CDT Zbigniew Marino MD CHEMISTRY ORDERABL ES Performing Organization Address City/[facility]/ZIP Co de Phone Number [facility]# [id number] [address] [place] [address] * MAGNESIUM LEVEL (02/01/2023 9:30 PM CDT) MAGNESIUM 2.1 1.6 - 2.6 mg/dL 02/01/2023 10:27 PM CDT [facility] LABORATORY [facility] Blood Venipuncture / Unknown 02/01/2023 9:30 PM CDT 02/01/2023 9:40 PM CDT Zbigniew Marino MD CHEMISTRY ORDERABL ES [facility] [employer] SERVICES [facility] CLIA# [id number] [address] [facility] [address] [address] * (ABNORMAL) BASIC METABOLIC PANEL (02/01/2023 9:30 PM CDT) SODIUM 140 136 - 145 mmol/L 02/01/2023 10:27 PM T [facility] LABORATORY [facility] POTASSIUM 3.8 3.5 - 5.0 mmol/L 02/01/2023 10:27 PM T [facility] LABORATORY [facility]. [facility] CHLORIDE 109(H) 98 - 107 mmol/L 02/01/2023 10:27 PM [facility] LABORATORY [facility]. [facility] CO2 23 22 - 29 mmol/L 02/01/2023 10:27 PM T [facility] LABORATORY [facility]. [facility] CALCIUM 8.4(L) 8.6 - 10.2 mg/dL 02/01/2023 10:27 PM T [facility] LABORATORY [facility]. [facility] BUN 4(L) 6 - 20 mg/dL 02/01/2023 10:27 PM T [facility] LABORATORY [facility]. [facility] CREATININE 0.51 0.51 - 0.95 mg/dL 02/01/2023 10:27 PM [facility] LABORATORY [facility]. [facility] GLUCOSE 79 74 - 99 mg/dL 02/01/2023 10:27 PM T [facility] LABORATORY [facility]. [facility] GFR >60 >=60 mL/min/1.7 3 sq meter 02/01/2023 10:27 PM [facility] LABORATORY SERVICES [facility] Comment:eGFR calculated with 2020 CKD-EPI equation. Vegetarian diet, extremely high or low muscle mass, and may affect results. Cystatin C with Glomerular Filtration Rate is a suitable alternative for these patients. ANION GAP 8 8 - 16 mmol/L 02/01/2023 10:27 PM T [facility] LABORATORY SERVICES [facility] Blood Venipuncture / Unknown 02/01/2023 9:30 PM CDT 02/01/2023 9:40 PM CDT Zbigniew Marino MD CHEMISTRY ORDERABL ES [facility] LABORATORY [facility] CLIA# [id number] [address] [place] [address] * POC GLUCOSE (02/01/2023 9:28 PM CDT) GLUCOSE POC 97 74 - 99 mg/dL 02/01/2023 9:28 PM CDT [facility] LABORATORY SERVICES - [facility] SPECIMEN SOURCE, GLUCOSE POC Whole Blood 02/01/2023 9:28 PM CDT [facility] - [facility] Blood, whole 02/01/2023 9:28 PM CDT 02/01/2023 9:35 PM CDT Zbigniew Marino MD POINT OF CARE TEST ING Performing Organization Address [facility]/ZIP Co de Phone Number [facility] Just[facility] CLIA# [id number] [address] [place] [address] * POC GLUCOSE (02/01/2023 8:40 PM CDT) GLUCOSE POC 75 74 - 99 mg/dL 02/01/2023 8:40 PM CDT [facility] - [facility] SPECIMEN SOURCE, GLUCOSE POC Whole Blood 02/01/2023 8:40 PM CDT [facility] LABORATORY SERVICES - [facility] Blood, whole 02/01/2023 8:40 PM CDT 02/01/2023 8:48 PM CDT Zbigniew Marino MD POINT OF CARE TEST ING Performing Organization Address [facility]/ZIP Co de Phone Number [facility] LABORATORY [facility] CLIA# [id number] [address] [place] [address] * POC GLUCOSE (02/01/2023 8:09 PM CDT) GLUCOSE POC 78 74 - 99 mg/dL 02/01/2023 8:09 PM CDT [facility] LABORATORY SERVICES - [facility] SPECIMEN SOURCE, GLUCOSE POC Whole Blood 02/01/2023 8:09 PM CDT [facility] LABORATORY SERVICES - [facility] Blood, whole 02/01/2023 8:09 PM CDT 02/01/2023 8:17 PM CDT Zbigniew Marino MD POINT OF CARE TEST ING [facility] LABORATORY [facility] CLIA# [id number] [address] [place] [address] * (ABNORMAL) POC GLUCOSE (02/01/2023 7:54 PM CDT) GLUCOSE POC 58(L) 74 - 99 mg/dL 02/01/2023 7:54 PM CDT [facility] LABORATORY SERVICES - [facility] SPECIMEN SOURCE, GLUCOSE POC Whole Blood 02/01/2023 7:54 PM CDT [facility] LABORATORY SERVICES - [facility] COMMENT, GLU POC To be Repeated 02/01/2023 7:54 PM CDT [facility] LABORATORY SERVICES - [facility] Blood, whole 02/01/2023 7:54 PM CDT 02/01/2023 8:02 PM CDT Zbigniew Marino MD POINT OF CARE TEST ING [facility] SERVICES [facility] CLIA# [id number] [address] [place] [address] * (ABNORMAL) POC GLUCOSE (02/01/2023 7:34 PM CDT) GLUCOSE POC 65(L) 74 - 99 mg/dL 02/01/2023 7:34 PM CDT [facility] - [facility] SPECIMEN SOURCE, GLUCOSE POC Whole Blood 02/01/2023 7:34 PM CDT [facility] LABORATORY SERVICES [facility] COMMENT, GLU POC Notified HEMALATHA 02/01/2023 7:34 PM CDT [facility] LABORATORY SERVICES - [facility] Blood, whole 02/01/2023 7:34 PM CDT 02/01/2023 7:43 PM CDT Zbigniew Marino MD POINT OF CARE TEST ING Performing Organization Address [facility] Co de Phone Number [facility] LABORATORY [facility] CLIA# [id number] [address] [address] * (ABNORMAL) POC GLUCOSE (02/01/2023 7:10 PM CDT) GLUCOSE POC 54(L) 74 - 99 mg/dL 02/01/2023 7:10 PM CDT [facility] LABORATORY SERVICES [facility] SPECIMEN SOURCE, GLUCOSE POC Whole Blood 02/01/2023 7:10 PM CDT [facility] LABORATORY SERVICES [facility] COMMENT, GLU POC Notified HEMALATHA 02/01/2023 7:10 PM CDT [facility] LABORATORY SERVICES [facility] Blood, whole 02/01/2023 7:10 PM CDT 02/01/2023 7:18 PM CDT Zbigniew Marino MD POINT OF CARE TEST ING Performing Organization Address [facility] Co de Phone Number [facility] LABORATORY [facility]# [id number] [address] [facility] [address] [address] * (ABNORMAL) POC GLUCOSE (02/01/2023 6:51 PM CDT) GLUCOSE POC 60(L) 74 - 99 mg/dL 02/01/2023 6:51 PM CDT [facility] LABORATORY SERVICES [facility] SPECIMEN SOURCE, GLUCOSE POC Whole Blood 02/01/2023 6:51 PM CDT [facility] LABORATORY SERVICES [facility] COMMENT, GLU POC Notified HEMALATHA 02/01/2023 6:51 PM CDT [facility] LABORATORY SERVICES [facility] Blood, whole 02/01/2023 6:51 PM CDT 02/01/2023 7:00 PM CDT Zbigniew Marino MD POINT OF CARE TEST ING [facility] LABORATORY [facility] CLIA# [id number] [address] [place] [address] * (ABNORMAL) POC GLUCOSE (02/01/2023 6:27 PM CDT) GLUCOSE POC 50(L) 74 - 99 mg/dL 02/01/2023 6:27 PM CDT [facility] LABORATORY [facility] SPECIMEN SOURCE, GLUCOSE POC Whole Blood 02/01/2023 6:27 PM CDT [facility] LABORATORY [facility] COMMENT, GLU POC Notified RN/MD 02/01/2023 6:27 PM CDT [facility] LABORATORY [facility] COMMENT 2, GLU POC Repeated Glucose 02/01/2023 6:27 PM CDT [facility] LABORATORY [facility] Blood, whole 02/01/2023 6:27 PM CDT 02/01/2023 6:34 PM CDT Zbigniew Marino MD POINT OF CARE TEST ING Performing Organization Address [facility]/ZIP Co de Phone Number [facility] Justyle [facility] CLIA# [id number] [address] [place] [address] * POC GLUCOSE (02/01/2023 4:02 PM CDT) GLUCOSE POC 83 74 - 99 mg/dL 02/01/2023 4:02 PM CDT [facility] LABORATORY [facility] SPECIMEN SOURCE, GLUCOSE POC Whole Blood 02/01/2023 4:02 PM CDT [facility] LABORATORY [facility] Blood, whole 02/01/2023 4:02 PM CDT 02/01/2023 4:11 PM CDT Zbigniew Marino MD POINT OF CARE TEST ING Performing Organization Address [facility]/ZIP Co de Phone Number [facility] Justyle [facility] CLIA# [id number] [address] [place] [address] * (ABNORMAL) POC GLUCOSE (02/01/2023 2:41 PM CDT) GLUCOSE POC 105(H) 74 - 99 mg/dL 02/01/2023 2:41 PM CDT [facility] LABORATORY SERVICES - [facility] SPECIMEN SOURCE, GLUCOSE POC Whole Blood 02/01/2023 2:41 PM CDT [facility] LABORATORY SERVICES - [facility] Blood, whole 02/01/2023 2:41 PM CDT 02/01/2023 3:02 PM CDT Zbigniew Marino MD POINT OF CARE TEST ING Performing Organization Address [facility] Co de Phone Number [facility] Justyle [facility] CLIA# [id number] [address] [place] [address] * EXTRA TUBE (SST/GOLD) (02/01/2023 1:18 PM CDT) Blood Venipuncture / Unknown 02/01/2023 1:18 PM CDT 02/01/2023 2:04 PM CDT External Provider [facility] CHEMISTRY ORDERA BLES Performing Organization Address [facility]/ZIP Co de Phone Number [facility] Justyle [facility] CLIA# [id number] [address] [place] [address] * (ABNORMAL) POC GLUCOSE (02/01/2023 11:13 AM CDT) GLUCOSE POC 156(H) 74 - 99 mg/dL 02/01/2023 11:13 AM CDT [facility] LABORATORY SERVICES [facility] SPECIMEN SOURCE, GLUCOSE POC Whole Blood 02/01/2023 11:13 AM CDT [facility] LABORATORY SERVICES - [facility] Blood, whole 02/01/2023 11:1 3 AM CDT 02/01/2023 11:23 AM CDT Zbigniew Marino MD POINT OF CARE TEST ING Performing Organization Address [facility] Co de Phone Number [facility]# [id number] [address] [place] [address] * (ABNORMAL) POC GLUCOSE (02/01/2023 9:49 AM CDT) [facility] GLUCOSE POC 155(H) 74 - 99 mg/dL 02/01/2023 9:49 AM CDT [facility] LABORATORY [facility] SPECIMEN SOURCE, GLUCOSE POC Whole Blood 02/01/2023 9:49 AM CDT [facility] LABORATORY [facility] Blood, whole 02/01/2023 9:49 AM CDT 02/01/2023 10:03 AM CDT Zbigniew Marino MD POINT OF CARE TEST ING Performing Organization Address [facility] de Phone Number [facility] CLVT# [id number] [address] [place] [address] * FERRITIN (02/01/2023 8:39 AM CDT) [facility] FERRITIN 48.0 13.0 - 150.0 ng/mL 02/01/2023 9:40 AM CDT [facility] Justyle [facility] Blood Venipuncture / Unknown 02/01/2023 8:39 AM CDT 02/01/2023 8:49 AM CDT Zbigniew Marino MD CHEMISTRY ORDERABL ES Performing Organization Address [facility] Co de Phone Number [facility] Justyle [facility]# [id number] [address] [place] [address] * (ABNORMAL) IRON, TIBC, AND PERCENT SATURATION (02/01/2023 8:39 AM CDT) [facility] IRON 34(L) 37 - 145 ug/dL 02/01/2023 9:36 AM CDT [facility] LABORATORY [facility] TIBC 413 250 - 450 ug/dL 02/01/2023 9:36 AM CDT [facility] LABORATORY SERVICES - [facility] IRON % SATURATION 8(L) 15 - 50 % 02/01/2023 9:36 AM CDT [facility] LABORATORY [facility] TRANSFERRIN 325 200 - 360 mg/dL 02/01/2023 9:36 AM CDT [facility] LABORATORY SERVICES [facility] Blood Venipuncture / Unknown 02/01/2023 8:39 AM CDT 02/01/2023 8:49 AM CDT Zbigniew Marino MD CHEMISTRY ORDERABL ES Performing Organization Address City/[facility]/ZIP Co de Phone Number [facility] CLIA# [id number] [address] [place] [address] * PHOSPHORUS (02/01/2023 8:39 AM CDT) PHOSPHORUS 4.0 2.5 - 4.5 mg/dL 02/01/2023 9:36 AM CDT [facility] LABORATORY [facility] Blood Venipuncture / Unknown 02/01/2023 8:39 AM CDT 02/01/2023 8:49 AM CDT Zbigniew Marino MD CHEMISTRY ORDERABL ES [facility]# [id number] [address] [place] [address] * (ABNORMAL) MAGNESIUM LEVEL (02/01/2023 8:39 AM CDT) MAGNESIUM 2.9(H) 1.6 - 2.6 mg/dL 02/01/2023 9:35 AM CDT [facility] LABORATORY [facility] Blood Venipuncture / Unknown 02/01/2023 8:39 AM CDT 02/01/2023 8:49 AM CDT Zbigniew Marino MD CHEMISTRY ORDERABL ES [facility] Justyle [facility]# [id number] [address] [place] [place] [address] * (ABNORMAL) BASIC METABOLIC PANEL (02/01/2023 8:39 AM CDT) SODIUM 137 136 - 145 mmol/L 02/01/2023 9:35 AM T [facility] POTASSIUM 3.9 3.5 - 5.0 mmol/L 02/01/2023 9:35 AM [facility] Justyle [facility] - . [facility] CHLORIDE 107 98 - 107 mmol/L 02/01/2023 9:35 AM [facility] CO2 19(L) 22 - 29 mmol/L 02/01/2023 9:[address] [facility] CALCIUM 8.2(L) 8.6 - 10.2 mg/dL 02/01/2023 9:[address] [facility]. [facility] BUN 3(L) 6 - 20 mg/dL 02/01/2023 9:[address] [facility]. [facility] CREATININE 0.53 0.51 - 0.95 mg/dL 02/01/2023 9:[address] [facility]. [facility] GLUCOSE 174(H) 74 - 99 mg/dL 02/01/2023 9:[address] [facility]. [facility] GFR >60 >=60 mL/min/1.7 3 sq meter 02/01/2023 9:35 AM [facility] Justyle [facility] Comment:eGFR calculated with 2020 CKD-EPI equation. Vegetarian diet, extremely high or low muscle mass, and may affect results. Cystatin C with Glomerular Filtration Rate is a suitable alternative for these patients. ANION GAP 11 8 - 16 mmol/L 02/01/2023 9:35 AM [facility] LABORATORY [facility] Blood Venipuncture / Unknown 02/01/2023 8:39 AM CDT 02/01/2023 8:49 AM CDT Zbigniew Marino MD CHEMISTRY ORDERABL ES [facility] LABORATORY SERVICES - [facility]# [id number] [address] [place] [address] * (ABNORMAL) CBC WITH DIFFERENTIAL (02/01/2023 8:39 AM CDT) Pathologist [facility] WBC 6.1 4.0 - 9.8 K/uL 02/01/2023 9:02 AM CDT [facility] LABORATORY SERVICES - [facility] RBC 3.67(L) 3.90 - 4.90 M/uL 02/01/2023 9:02 AM CDT [facility] LABORATORY SERVICES - [facility] HEMOGLOBIN 9.4(L) 11.8 - 14.8 g/dL 02/01/2023 9:02 AM T [facility] LABORATORY SERVICES - [facility] HEMATOCRIT 30.7(L) 35.5 - 44.0 % 02/01/2023 9:02 AM CDT [facility] LABORATORY SERVICES - . [facility] MCV 83.7 82.0 - 99.0 fL 02/01/2023 9:02 AM CDT [facility] LABORATORY SERVICES - [facility] MCH 25.6(L) 27.2 - 32.6 pg 02/01/2023 9:02 AM CDT [facility] LABORATORY SERVICES - [facility] MCHC 30.6(L) 31.5 - 35.5 g/dL 02/01/2023 9:02 AM CDT [facility] LABORATORY SERVICES - . [facility] RDW 16.6(H) 11.5 - 14.5 % 02/01/2023 9:02 AM CDT [facility] LABORATORY SERVICES - [facility] RDW-STDEV 49.2(H) 37.1 - 48.7 fL 02/01/2023 9:02 AM CDT [facility] LABORATORY SERVICES - . [facility] PLATELETS 261 140 - 350 K/uL 02/01/2023 9:02 AM CDT [facility] LABORATORY SERVICES - . [facility] MPV 9.4 9.3 - 12.4 fL 02/01/2023 9:02 AM CDT [facility] LABORATORY SERVICES - [facility] NEUTROPHILS 51 % 02/01/2023 9:02 AM CDT [facility] LABORATORY SERVICES - [facility] LYMPHOCYTES 35 % 02/01/2023 9:02 AM CDT [facility] LABORATORY SERVICES - [facility] MONOCYTES 10 % 02/01/2023 9:02 AM T [facility] LABORATORY SERVICES - [facility] EOSINOPHILS 0 % 02/01/2023 9:02 AM CDT [facility] LABORATORY SERVICES - [facility] BASOPHILS 1 % 02/01/2023 9:02 AM CDT [facility] LABORATORY SERVICES - [facility] IMMATURE GRANULOCYTES 3 % 02/01/2023 9:02 AM T [facility] LABORATORY SERVICES - [facility] Comment:IG (Immature Granulo cyte) count includes Metamyelocytes, Myelocytes, and Promyelocytes NEUTROPHIL ABSOLUTE 3.11 1.90 - 7.00 K/uL 02/01/2023 9:02 AM T [facility] LABORATORY SERVICES - [facility] LYMPHOCYTE ABSOLUTE 2.13 0.70 - 4.50 K/uL 02/01/2023 9:02 AM CDT [facility] LABORATORY SERVICES - [facility] MONOCYTE ABSOLUTE 0.61 0.10 - 1.30 K/uL 02/01/2023 9:02 AM CDT [facility] LABORATORY SERVICES - [facility] EOSINOPHIL ABSOLUTE 0.02 0.00 - 0.70 K/uL 02/01/2023 9:02 AM T [facility] LABORATORY SERVICES - [facility] BASOPHILS ABSOLUTE 0.03 0.00 - 0.20 K/uL 02/01/2023 9:02 AM T [facility] LABORATORY SERVICES - . [facility] IMMATURE GRANULOCYTES ABSOLUTE 0.18(H) 0.00 - 0.03 K/uL 02/01/2023 9:02 AM T [facility] LABORATORY SERVICES - . [facility] Blood Venipuncture / Unknown 02/01/2023 8:39 AM CDT 02/01/2023 8:49 AM CDT Manuel Goldstein MD HEMATOLOGY ORDERABLE S [facility] SERVICES - [facility] CLIA# [id number] [address] [facility] [address] [address] * (ABNORMAL) POC GLUCOSE (02/01/2023 7:32 AM CDT) GLUCOSE POC 156(H) 74 - 99 mg/dL 02/01/2023 7:32 AM CDT [facility] LABORATORY SERVICES - [facility] SPECIMEN SOURCE, GLUCOSE POC Whole Blood 02/01/2023 7:32 AM CDT [facility] Blood, whole 02/01/2023 7:32 AM CDT 02/01/2023 7:41 AM CDT Zbigniew Marino MD POINT OF CARE TEST ING Performing Organization Address City/[facility]/ZIP Co de Phone Number [facility]# [id number] [address] [place] [address] * (ABNORMAL) POC GLUCOSE (02/01/2023 5:32 AM CDT) GLUCOSE POC 114(H) 74 - 99 mg/dL 02/01/2023 5:32 AM CDT [facility] LABORATORY SERVICES - [facility] SPECIMEN SOURCE, GLUCOSE POC Whole Blood 02/01/2023 5:32 AM CDT [facility] LABORATORY SERVICES - [facility] Blood, whole 02/01/2023 5:32 AM CDT 02/01/2023 5:40 AM CDT Zbigniew Marino MD POINT OF CARE TEST ING Performing Organization Address City/[facility]/ZIP Co de Phone Number [facility]# [id number] [address] [place] [address] * (ABNORMAL) POC GLUCOSE (02/01/2023 2:10 AM CDT) GLUCOSE POC 177(H) 74 - 99 mg/dL 02/01/2023 2:10 AM CDT [facility] - [facility] SPECIMEN SOURCE, GLUCOSE POC Whole Blood 02/01/2023 2:10 AM CDT [facility] LABORATORY SERVICES - [facility] Blood, whole 02/01/2023 2:1 0 AM CDT 02/01/2023 2:18 AM CDT Zbigniew Marino MD POINT OF CARE TEST ING Performing Organization Address [facility] Co de Phone Number [facility] CLIA# [id number] [address] [place] [address] * (BROTH-ENRICHED) GROUP B STREP DETECTION (02/01/2023 12:41 AM CDT) [facility] STREPTOCOCCUS GROUP B AMPLIFIED PROBE RESULT Not Detected Not Detected 02/01/2023 11:20 PM CDT [facility] Genital (Vaginal/rectal) Collection / Unknown 02/01/2023 12:41 AM CDT 02/01/2023 12:46 AM CDT Narrative [facility] - 02/01/2023 11:20 PM CDT This test was developed and its performance characteristics determined by [facility]. It has not been cleared by [...] - GEN ERAL ORDERABLES Performing Organization Address [facility] Co de Phone Number [facility] CLIA# [id number] [address] [place] [address] * (ABNORMAL) POC GLUCOSE (02/01/2023 12:17 AM CDT) [facility] GLUCOSE POC 200(H) 74 - 99 mg/dL 02/01/2023 12:17 AM CDT [facility] SPECIMEN SOURCE, GLUCOSE POC Whole Blood 02/01/2023 12:17 AM CDT [facility] Blood, whole 02/01/2023 12:1 7 AM CDT 02/01/2023 12:29 AM CDT Zbigniew Marino MD POINT OF CARE TEST ING Performing Organization Address [facility]/ZIP Co de Phone Number [facility] CLIA# [id number] [address] [place] [address] * (ABNORMAL) POC GLUCOSE (01/31/2023 10:08 PM CDT) GLUCOSE POC 179(H) 74 - 99 mg/dL 01/31/2023 10:08 PM CDT [facility] LABORATORY SERVICES - [facility] SPECIMEN SOURCE, GLUCOSE POC Whole Blood 01/31/2023 10:08 PM CDT [facility] LABORATORY SERVICES - [facility] Blood, whole 01/31/2023 10:0 8 PM CDT 01/31/2023 10:17 PM CDT Zbigniew Marino MD POINT OF CARE TEST ING Performing Organization Address [facility]/ZIP Co de Phone Number [facility] Justyle [facility] CLIA# [id number] [address] [place] [address] * (ABNORMAL) BASIC METABOLIC PANEL (01/31/2023 9:23 PM CDT) Pathologist [facility] SODIUM 138 136 - 145 mmol/L 01/31/2023 10:17 PM CDT [facility] LABORATORY SERVICES - [facility] POTASSIUM 3.4(L) 3.5 - 5.0 mmol/L 01/31/2023 10:17 PM CDT [facility] - [facility] CHLORIDE 109(H) 98 - 107 mmol/L 01/31/2023 10:17 PM CDT [facility]ORY SERVICES - . [facility] CO2 19(L) 22 - 29 mmol/L 01/31/2023 10:17 PM CDT [facility] LABORATORY SERVICES - [facility] CALCIUM 8.5(L) 8.6 - 10.2 mg/dL 01/31/2023 10:17 PM CDT [facility] SERVICES - . [facility] BUN 3(L) 6 - 20 mg/dL 01/31/2023 10:17 PM CDT [facility] LABORATORY [facility] CREATININE 0.52 0.51 - 0.95 mg/dL 01/31/2023 10:17 PM CDT [facility] LABORATORY [facility] GLUCOSE 159(H) 74 - 99 mg/dL 01/31/2023 10:17 PM CDT [facility] LABORATORY [facility] GFR >60 >=60 mL/min/1.7 3 sq meter 01/31/2023 10:17 PM CDT [facility] LABORATORY [facility] Comment:eGFR calculated with 2020 CKD-EPI equation. Vegetarian diet, extremely high or low muscle mass, and may affect results. Cystatin C with Glomerular Filtration Rate is a suitable alternative for these patients. ANION GAP 10 8 - 16 mmol/L 01/31/2023 10:17 PM CDT [facility] LABORATORY [facility] Blood Venipuncture / Unknown 01/31/2023 9:23 PM CDT 01/31/2023 9:45 PM CDT Manuel Goldstein MD CHEMISTRY ORDERABLES [facility] CLIA# [id number] [address] [place] [address] * MAGNESIUM LEVEL (01/31/2023 9:23 PM CDT) MAGNESIUM 2.1 1.6 - 2.6 mg/dL 01/31/2023 10:17 PM CDT [facility] LABORATORY [facility] Blood Venipuncture / Unknown 01/31/2023 9:23 PM CDT 01/31/2023 9:45 PM CDT Manuel Goldstein MD CHEMISTRY ORDERABLES [facility] CLIA# [id number] [address], [place] [address] * (ABNORMAL) PHOSPHORUS (01/31/2023 9:23 PM CDT) PHOSPHORUS 2.1(L) 2.5 - 4.5 mg/dL 01/31/2023 10:17 PM CDT [facility] LABORATORY [facility] Blood Venipuncture / Unknown 01/31/2023 9:23 PM CDT 01/31/2023 9:45 PM CDT Manuel Goldstein MD CHEMISTRY ORDERABLES [facility]# [id number] [address] [place] [address] * (ABNORMAL) POC GLUCOSE (01/31/2023 8:14 PM CDT) [facility] Signature GLUCOSE POC 146(H) 74 - 99 mg/dL 01/31/2023 8:14 PM CDT [facility] SPECIMEN SOURCE, GLUCOSE POC Whole Blood 01/31/2023 8:14 PM CDT [facility] LABORATORY [facility] Blood, whole 01/31/2023 8:14 PM CDT 01/31/2023 8:28 PM CDT Zbigniew Marino MD POINT OF CARE TEST ING Performing Organization Address [facility]/ZIP Co de Phone Number [facility]# [id number] [address] [place] [address] * (ABNORMAL) POC GLUCOSE (01/31/2023 6:04 PM CDT) GLUCOSE POC 107(H) 74 - 99 mg/dL 01/31/2023 6:04 PM CDT [facility] LABORATORY [facility] SPECIMEN SOURCE, GLUCOSE POC Whole Blood 01/31/2023 6:04 PM CDT [facility] LABORATORY [facility] Blood, whole 01/31/2023 6:04 PM CDT 01/31/2023 6:20 PM CDT Zbigniew Marino MD POINT OF CARE TEST ING [facility] LABORATORY SERVICES [facility] CLIA# [id number] [address] [place] [address] * (ABNORMAL) POC GLUCOSE (01/31/2023 1:46 PM CDT) GLUCOSE POC 107(H) 74 - 99 mg/dL 01/31/2023 1:46 PM CDT [facility] LABORATORY SERVICES - [facility] SPECIMEN SOURCE, GLUCOSE POC Whole Blood 01/31/2023 1:46 PM CDT [facility] LABORATORY SERVICES - [facility] Blood, whole 01/31/2023 1:46 PM CDT 01/31/2023 1:54 PM CDT Chris Aguirre MD POINT OF CARE TESTIN G Performing Organization Address City/[facility]/ZIP Co de Phone Number [facility] LABORATORY [facility] CLIA# [id number] [address] [place] [address] * (ABNORMAL) POC GLUCOSE (01/31/2023 11:05 AM CDT) GLUCOSE POC 105(H) 74 - 99 mg/dL 01/31/2023 11:05 AM CDT [facility] LABORATORY SERVICES - [facility] SPECIMEN SOURCE, GLUCOSE POC Whole Blood 01/31/2023 11:05 AM CDT [facility] LABORATORY SERVICES - [facility] Blood, whole 01/31/2023 11:0 5 AM CDT 01/31/2023 11:18 AM CDT Chris Aguirre MD POINT OF CARE TESTIN G [facility] LABORATORY [facility] CLIA# [id number] [address] [place] [address] * (ABNORMAL) POC GLUCOSE (01/31/2023 9:54 AM CDT) GLUCOSE POC 103(H) 74 - 99 mg/dL 01/31/2023 9:54 AM CDT [facility] LABORATORY [facility] SPECIMEN SOURCE, GLUCOSE POC Whole Blood 01/31/2023 9:54 AM CDT [facility] LABORATORY SERVICES - [facility] Blood, whole 01/31/2023 9:54 AM CDT 01/31/2023 10:01 AM CDT Chris Aguirre MD POINT OF CARE TESTIN G Performing Organization Address [facility]/ZIP Co de Phone Number [facility] LABORATORY [facility] CLIA# [id number] [address] [place] [address] * (ABNORMAL) POC GLUCOSE (01/31/2023 9:15 AM CDT) GLUCOSE POC 120(H) 74 - 99 mg/dL 01/31/2023 9:15 AM CDT [facility] LABORATORY [facility] SPECIMEN SOURCE, GLUCOSE POC Whole Blood 01/31/2023 9:15 AM CDT [facility] LABORATORY [facility] Blood, whole 01/31/2023 9:15 AM CDT 01/31/2023 9:22 AM CDT Chris Aguirre MD POINT OF CARE TESTIN G Performing Organization Address [facility] Co de Phone Number [facility] CLIA# [id number] [address] [place] [address] * (ABNORMAL) POC GLUCOSE (01/31/2023 8:06 AM CDT) GLUCOSE POC 118(H) 74 - 99 mg/dL 01/31/2023 8:06 AM CDT [facility] LABORATORY [facility] SPECIMEN SOURCE, GLUCOSE POC Whole Blood 01/31/2023 8:06 AM CDT [facility] LABORATORY [facility] Blood, whole 01/31/2023 8:06 AM CDT 01/31/2023 8:19 AM CDT Chris Aguirre MD POINT OF CARE TESTIN G [facility] LABORATORY SERVICES [facility]# [id number] [address] [place] [address] * (ABNORMAL) POC GLUCOSE (01/31/2023 7:23 AM CDT) GLUCOSE POC 109(H) 74 - 99 mg/dL 01/31/2023 7:23 AM CDT [facility] LABORATORY SERVICES - [facility] SPECIMEN SOURCE, GLUCOSE POC Whole Blood 01/31/2023 7:23 AM CDT [facility] LABORATORY SERVICES - [facility] Blood, whole 01/31/2023 7:23 AM CDT 01/31/2023 7:34 AM CDT Chris Aguirre MD POINT OF CARE TESTMARY G Performing Organization Address City/[facility]/ZIP Co de Phone Number [facility] LABORATORY SERVICES [facility]# [id number] [address] [place] [address] * VERIFICATION BLOOD GROUP (01/31/2023 7:07 AM CDT) ABO GROUP O 01/31/2023 8:16 AM CDT [facility] LABORATORY SERVICES -- [facility] RH (D) TYPE Positive 01/31/2023 8:16 AM CDT [facility] LABORATORY SERVICES -- [facility] Blood Venipuncture / Unknown 01/31/2023 7:07 AM CDT 01/31/2023 7:08 AM CDT Shonda Lo MD BLOOD BANK ORD ERABLES [facility] LABORATORY SERVICES -- [facility]# [id number] [address] [place] [address] * (ABNORMAL) POC GLUCOSE (01/31/2023 6:19 AM CDT) GLUCOSE POC 129(H) 74 - 99 mg/dL 01/31/2023 6:19 AM CDT [facility] LABORATORY SERVICES - [facility] SPECIMEN SOURCE, GLUCOSE POC Whole Blood 01/31/2023 6:19 AM [facility] SERVICES - [facility] Blood, whole 01/31/2023 6:19 AM CDT 01/31/2023 6:38 AM CDT Chris Aguirre MD POINT OF CARE TESTIN G [facility] SERVICES [facility]# [id number] [address] [place] [address] * (ABNORMAL) BASIC METABOLIC PANEL (01/31/2023 5:18 AM CDT) Pathologist [facility] SODIUM 136 136 - 145 mmol/L 01/31/2023 6:31 AM [facility] LABORATORY SERVICES [facility] POTASSIUM 2.8(L) 3.5 - 5.0 mmol/L 01/31/2023 6:31 AM [facility] LABORATORY SERVICES [facility] CHLORIDE 109(H) 98 - 107 mmol/L 01/31/2023 6:31 AM [facility] CO2 17(L) 22 - 29 mmol/L 01/31/2023 6:31 AM [facility] LABORATORY [facility] CALCIUM 7.8(L) 8.6 - 10.2 mg/dL 01/31/2023 6:31 AM [facility] LABORATORY SERVICES [facility] BUN 4(L) 6 - 20 mg/dL 01/31/2023 6:31 AM [facility] [employer] LABORATORY SERVICES [facility]. [facility] CREATININE 0.51 0.51 - 0.95 mg/dL 01/31/2023 6:31 AM [facility] GLUCOSE 129(H) 74 - 99 mg/dL 01/31/2023 6:31 AM [facility] LABORATORY SERVICES [facility] GFR >60 >=60 mL/min/1.7 3 sq meter 01/31/2023 6:31 AM CDT [employer] [facility] Comment:eGFR calculated with 2020 CKD-EPI equation. Vegetarian diet, extremely high or low muscle mass, and may affect results. Cystatin C with Glomerular Filtration Rate is a suitable alternative for these patients. ANION GAP 10 8 - 16 mmol/L 01/31/2023 6:31 AM CDT [facility] LABORATORY [facility] Blood Venipuncture / Unknown 01/31/2023 5:18 AM CDT 01/31/2023 5:44 AM CDT Manuel Goldstein MD CHEMISTRY ORDERABLES Performing Organization Address [facility] de Phone Number [facility] CLIA# [id number] [address] [place] [address] * MAGNESIUM LEVEL (01/31/2023 5:18 AM CDT) MAGNESIUM 1.7 1.6 - 2.6 mg/dL 01/31/2023 6:31 AM CDT [facility] Blood Venipuncture / Unknown 01/31/2023 5:18 AM CDT 01/31/2023 5:44 AM CDT Manuel Goldstein MD CHEMISTRY ORDERABLES Performing Organization Address [facility] Phone Number [facility]# [id number] [address] [place] [address] * (ABNORMAL) PHOSPHORUS (01/31/2023 5:18 AM CDT) PHOSPHORUS 1.4(L) 2.5 - 4.5 mg/dL 01/31/2023 6:31 AM CDT [facility] Blood Venipuncture / Unknown 01/31/2023 5:18 AM CDT 01/31/2023 5:44 AM CDT Manuel Goldstein MD CHEMISTRY ORDERABLES Performing Organization Address [facility]/State/ZIP Co de Phone Number [facility] LABORATORY SERVICES - [facility] CLIA# [id number] [address] [place] [address] * (ABNORMAL) CBC WITH DIFFERENTIAL (01/31/2023 5:18 AM CDT) [facility] WBC 9.6 4.0 - 9.8 K/uL 01/31/2023 6:00 AM CDT [facility] LABORATORY SERVICES - [facility] RBC 3.22(L) 3.90 - 4.90 M/uL 01/31/2023 6:00 AM CDT [facility]ATORY SERVICES - [facility] HEMOGLOBIN 8.4(L) 11.8 - 14.8 g/dL 01/31/2023 6:00 AM CDT [facility]AT[facility] SERVICES - [facility] HEMATOCRIT 26.5(L) 35.5 - 44.0 % 01/31/2023 6:00 AM CDT [facility]AT[facility] SERVICES - [facility] MCV 82.3 82.0 - 99.0 fL 01/31/2023 6:00 AM CDT [facility] SERVICES - [facility] MCH 26.1(L) 27.2 - 32.6 pg 01/31/2023 6:00 AM CDT [facility] SERVICES - [facility] MCHC 31.7 31.5 - 35.5 g/dL 01/31/2023 6:00 AM CDT [facility]ATORY SERVICES - [facility] RDW 16.1(H) 11.5 - 14.5 % 01/31/2023 6:00 AM CDT [facility] SERVICES - [facility] RDW-STDEV 48.1 37.1 - 48.7 fL 01/31/2023 6:00 AM CDT [facility]AT[facility] SERVICES - [facility] PLATELETS 329 140 - 350 K/uL 01/31/2023 6:00 AM CDT [facility] - [facility] MPV 9.2(L) 9.3 - 12.4 fL 01/31/2023 6:00 AM CDT [facility] - [facility] NEUTROPHILS 61 % 01/31/2023 6:00 AM CDT [facility] - [facility] LYMPHOCYTES 20 % 01/31/2023 6:00 AM CDT [facility] - [facility] MONOCYTES 15 % 01/31/2023 6:00 AM T [facility] LABORATORY SERVICES - [facility] EOSINOPHILS 0 % 01/31/2023 6:00 AM T [facility] LABORATORY SERVICES - [facility] BASOPHILS 0 % 01/31/2023 6:00 AM T [facility] LABORATORY SERVICES - . [facility] IMMATURE GRANULOCYTES 4 % 01/31/2023 6:00 AM T [facility] LABORATORY SERVICES - [facility] Comment:IG (Immature Granulo cyte) count includes Metamyelocytes, Myelocytes, and Promyelocytes NEUTROPHIL ABSOLUTE 5.83 1.90 - 7.00 K/uL 01/31/2023 6:00 AM CDT [facility] LABORATORY SERVICES - . [facility] LYMPHOCYTE ABSOLUTE 1.91 0.70 - 4.50 K/uL 01/31/2023 6:00 AM T [facility] LABORATORY SERVICES - . [facility] MONOCYTE ABSOLUTE 1.44(H) 0.10 - 1.30 K/uL 01/31/2023 6:00 AM T [facility] LABORATORY SERVICES - [facility] EOSINOPHIL ABSOLUTE 0.01 0.00 - 0.70 K/uL 01/31/2023 6:00 AM T [facility] LABORATORY SERVICES - [facility] BASOPHILS ABSOLUTE 0.02 0.00 - 0.20 K/uL 01/31/2023 6:00 AM T [facility] LABORATORY SERVICES - . [facility] IMMATURE GRANULOCYTES ABSOLUTE 0.37(H) 0.00 - 0.03 K/uL 01/31/2023 6:00 AM T [facility] LABORATORY SERVICES - [facility] Blood Venipuncture / Unknown 01/31/2023 5:18 AM CDT 01/31/2023 5:43 AM CDT Manuel Goldstein MD HEMATOLOGY ORDERABLE S [facility] [employer] [facility]# [id number] [address] [facility] [place] [place] [address] * (ABNORMAL) POC GLUCOSE (01/31/2023 5:12 AM CDT) [facility] Signature GLUCOSE POC 145(H) 74 - 99 mg/dL 01/31/2023 5:12 AM CDT [facility] LABORATORY SERVICES - [facility] SPECIMEN SOURCE, GLUCOSE POC Whole Blood 01/31/2023 5:12 AM CDT [facility] LABORATORY SERVICES - [facility] Blood, whole 01/31/2023 5:12 AM CDT 01/31/2023 5:34 AM CDT Vidhi Espinosa MD POINT OF CARE TESTIN G Performing Organization Address City/[facility]/ZIP Co de Phone Number [facility] LABORATORY [facility] CLIA# [id number] [address] [address] * (ABNORMAL) POC GLUCOSE (01/31/2023 4:19 AM CDT) GLUCOSE POC 155(H) 74 - 99 mg/dL 01/31/2023 4:19 AM CDT [facility] LABORATORY SERVICES - [facility] SPECIMEN SOURCE, GLUCOSE POC Whole Blood 01/31/2023 4:19 AM CDT [facility] LABORATORY SERVICES [facility] Blood, whole 01/31/2023 4:19 AM CDT 01/31/2023 4:30 AM CDT Vidhi Espinosa MD POINT OF CARE TESTIN G Performing Organization Address [facility] Co de Phone Number [facility] CLIA# [id number] [address] [place] [address] * (ABNORMAL) POC GLUCOSE (01/31/2023 3:17 AM CDT) GLUCOSE POC 110(H) 74 - 99 mg/dL 01/31/2023 3:17 AM CDT [facility] - [facility] SPECIMEN SOURCE, GLUCOSE POC Whole Blood 01/31/2023 3:17 AM CDT [facility] LABORATORY SERVICES - [facility] Blood, whole 01/31/2023 3:17 AM CDT 01/31/2023 3:27 AM CDT Vidhi Espinosa MD POINT OF CARE TESTIN G Performing Organization Address City/State/[facility] Co de Phone Number [facility] [id number] [address] [place] [address] * (ABNORMAL) POC GLUCOSE (01/31/2023 2:12 AM CDT) GLUCOSE POC 114(H) 74 - 99 mg/dL 01/31/2023 2:12 AM CDT [facility] LABORATORY SERVICES - [facility] SPECIMEN SOURCE, GLUCOSE POC Whole Blood 01/31/2023 2:12 AM CDT [facility] LABORATORY SERVICES [facility] Blood, whole 01/31/2023 2:12 AM CDT 01/31/2023 3:27 AM CDT Vidhi Espinosa MD POINT OF CARE CHIDIMARY Jayme Performing Organization Address [facility]/ZIP Co de Phone Number [facility] [employer] [facility] CLIA# [id number] [address] [place] [address] * (ABNORMAL) POC GLUCOSE (01/31/2023 1:17 AM CDT) GLUCOSE POC 124(H) 74 - 99 mg/dL 01/31/2023 1:17 AM CDT [facility] LABORATORY SERVICES - [facility] SPECIMEN SOURCE, GLUCOSE POC Whole Blood 01/31/2023 1:17 AM CDT [facility] LABORATORY [facility] Blood, whole 01/31/2023 1:17 AM CDT 01/31/2023 1:26 AM CDT Vidhi Espinosa MD POINT OF CARE BLANCA Delacruz [facility] [id number] [address] [place] [address] * (ABNORMAL) POC GLUCOSE (01/31/2023 12:01 AM CDT) GLUCOSE POC 126(H) 74 - 99 mg/dL 01/31/2023 12:01 AM CDT [facility] LABORATORY SERVICES - [facility] SPECIMEN SOURCE, GLUCOSE POC Whole Blood 01/31/2023 12:01 AM CDT [facility] LABORATORY [facility] Blood, whole 01/31/2023 12:0 1 AM CDT 01/31/2023 12:15 AM CDT Vidhi Espinosa MD POINT OF CARE TESTMARY Delacruz Performing Organization Address [facility]/ZIP Co de Phone Number [facility]# [id number] [address], [place] [address] * (ABNORMAL) POC GLUCOSE (01/30/2023 11:14 PM CDT) GLUCOSE POC 137(H) 74 - 99 mg/dL 01/30/2023 11:14 PM CDT [facility] LABORATORY [facility] SPECIMEN SOURCE, GLUCOSE POC Whole Blood 01/30/2023 11:14 PM CDT [facility] LABORATORY [facility] Blood, whole 01/30/2023 11:1 4 PM CDT 01/30/2023 11:25 PM CDT Vidhi Espinosa MD POINT OF CARE BLANCA Delacruz Performing Organization Address City/[facility]/ZIP Co de Phone Number [facility]# [id number] [address] [facility] [place] [address] * (ABNORMAL) POC GLUCOSE (01/30/2023 10:16 PM CDT) GLUCOSE POC 157(H) 74 - 99 mg/dL 01/30/2023 10:16 PM CDT [facility] LABORATORY [facility] SPECIMEN SOURCE, GLUCOSE POC Whole Blood 01/30/2023 10:16 PM CDT [facility] LABORATORY [facility] Blood, whole 01/30/2023 10:1 6 PM CDT 01/30/2023 10:25 PM CDT Vidhi Espinosa MD POINT OF CARE TESTIN Jayme [facility]ORY [facility] [id number] [address] [place] [address] * (ABNORMAL) POC GLUCOSE (01/30/2023 9:19 PM CDT) GLUCOSE POC 134(H) 74 - 99 mg/dL 01/30/2023 9:19 PM CDT [facility] LABORATORY SERVICES - [facility] SPECIMEN SOURCE, GLUCOSE POC Whole Blood 01/30/2023 9:19 PM CDT [facility] LABORATORY SERVICES [facility] Blood, whole 01/30/2023 9:19 PM CDT 01/30/2023 10:25 PM CDT Vidhi Espinosa MD POINT OF CARE BLANCA Jayme Performing Organization Address [facility]/ZIP Co de Phone Number [facility] LABORATORY [facility]# [id number] [address] [place] [address] * (ABNORMAL) POC GLUCOSE (01/30/2023 8:28 PM CDT) GLUCOSE POC 101(H) 74 - 99 mg/dL 01/30/2023 8:28 PM CDT [facility] LABORATORY SERVICES - [facility] SPECIMEN SOURCE, GLUCOSE POC Whole Blood 01/30/2023 8:28 PM CDT [facility] LABORATORY SERVICES - [facility] Blood, whole 01/30/2023 8:28 PM CDT 01/30/2023 10:25 PM CDT Vidhi Espinosa MD POINT OF CARE BLANCA Jayme [facility] [employer] [facility]# [id number] [address] [place] [address] * (ABNORMAL) POC GLUCOSE (01/30/2023 6:57 PM CDT) GLUCOSE POC 108(H) 74 - 99 mg/dL 01/30/2023 6:57 PM CDT [facility] LABORATORY SERVICES - [facility] SPECIMEN SOURCE, GLUCOSE POC Whole Blood 01/30/2023 6:57 PM CDT [facility] LABORATORY SERVICES - [facility] Blood, whole 01/30/2023 6:57 PM CDT 01/30/2023 7:05 PM CDT Vidhi Espinosa MD POINT OF CARE TESTMARY Delacruz Performing Organization Address [facility]/ZIP Co de Phone Number [facility]# [id number] [address] [place] [address] * POC GLUCOSE (01/30/2023 5:59 PM CDT) Pathologist [facility] GLUCOSE POC 98 74 - 99 mg/dL 01/30/2023 5:59 PM CDT [facility] - [facility] SPECIMEN SOURCE, GLUCOSE POC Whole Blood 01/30/2023 5:59 PM CDT [facility] - [facility] Blood, whole 01/30/2023 5:59 PM CDT 01/30/2023 6:11 PM CDT Vidhi Espinosa MD POINT OF CARE BLANCA Delacruz Performing Organization Address [facility] Co de Phone Number [facility] Just[employer] [facility]# [id number] [address] [place] [address] * (ABNORMAL) BASIC METABOLIC PANEL (01/30/2023 5:09 PM CDT) SODIUM 135(L) 136 - 145 mmol/L 01/30/2023 5:53 PM CDT [employer] [facility] LABORATORY SERVICES [facility] POTASSIUM 3.9 3.5 - 5.0 mmol/L 01/30/2023 5:53 PM CDT [facility] LABORATORY SERVICES [facility] CHLORIDE 110(H) 98 - 107 mmol/L 01/30/2023 5:53 PM CDT [facility] CO2 15(L) 22 - 29 mmol/L 01/30/2023 5:53 PM CDT [facility] SERVICES [facility] CALCIUM 8.0(L) 8.6 - 10.2 mg/dL 01/30/2023 5:53 PM CDT [facility] SERVICES - . [facility] BUN 5(L) 6 - 20 mg/dL 01/30/2023 5:53 PM CDT [facility] LABORATORY SERVICES [facility] CREATININE 0.46(L) 0.51 - 0.95 mg/dL 01/30/2023 5:53 PM CDT [facility] GLUCOSE 111(H) 74 - 99 mg/dL 01/30/2023 5:53 PM T [facility] GFR >60 >=60 mL/min/1.7 3 sq meter 01/30/2023 5:53 PM CDT [facility]ORAT[facility] SERVICES [facility] Comment:eGFR calculated with 2020 CKD-EPI equation. Vegetarian diet, extremely high or low muscle mass, and may affect results. Cystatin C with Glomerular Filtration Rate is a suitable alternative for these patients. ANION GAP 10 8 - 16 mmol/L 01/30/2023 5:53 PM CDT [facility] Blood Venipuncture / Unknown 01/30/2023 5:09 PM CDT 01/30/2023 5:14 PM CDT Manuel Goldstein MD CHEMISTRY ORDERABLES Performing Organization Address City/[facility]/ZIP Co de Phone Number [facility] [employer] [facility] CLVT# [id number] [address] [place] [address] * MAGNESIUM LEVEL (01/30/2023 5:09 PM CDT) MAGNESIUM 2.0 1.6 - 2.6 mg/dL 01/30/2023 5:56 PM CDT [facility] Blood Venipuncture / Unknown 01/30/2023 5:09 PM CDT 01/30/2023 5:14 PM CDT Manuel Goldstein MD CHEMISTRY ORDERABLES [facility]# [id number] [address] [place] [address] * PHOSPHORUS (01/30/2023 5:09 PM CDT) Pathologist [facility] Health PHOSPHORUS 3.3 2.5 - 4.5 mg/dL 01/30/2023 5:56 PM CDT [facility] LABORATORY [facility] Comment:Significant change f rom prior result, correlate clinically and redraw if necessary. Blood Venipuncture / Unknown 01/30/2023 5:09 PM CDT 01/30/2023 5:14 PM CDT Manuel Goldstein MD CHEMISTRY ORDERABLES Performing Organization Address [facility]/ZIP Co de Phone Number [facility]# [id number] [address] [place] [address] * (ABNORMAL) POC GLUCOSE (01/30/2023 5:07 PM CDT) [facility] GLUCOSE POC 111(H) 74 - 99 mg/dL 01/30/2023 5:07 PM CDT [facility] SPECIMEN SOURCE, GLUCOSE POC Whole Blood 01/30/2023 5:07 PM CDT [facility] Blood, whole 01/30/2023 5:07 PM CDT 01/30/2023 5:24 PM CDT Vidhi Espinosa MD POINT OF CARE TESTIN G [facility]# [id number] [address] [place] [address] * (ABNORMAL) POC GLUCOSE (01/30/2023 4:01 PM CDT) [facility] GLUCOSE POC 123(H) 74 - 99 mg/dL 01/30/2023 4:01 PM CDT [facility] LABOR[facility]ORY [facility] SPECIMEN SOURCE, GLUCOSE POC Whole Blood 01/30/2023 4:01 PM CDT [facility] LABORATORY SERVICES [facility] Blood, whole 01/30/2023 4:01 PM CDT 01/30/2023 4:10 PM CDT Vidhi Espinosa MD POINT OF CARE TESTMARY Delacruz [facility] LABORATORY [facility] CLIA# [id number] [address] [place] [address] * (ABNORMAL) POC GLUCOSE (01/30/2023 3:01 PM CDT) GLUCOSE POC 124(H) 74 - 99 mg/dL 01/30/2023 3:01 PM CDT [facility] LABORATORY SERVICES [facility] SPECIMEN SOURCE, GLUCOSE POC Whole Blood 01/30/2023 3:01 PM CDT [facility] Blood, whole 01/30/2023 3:01 PM CDT 01/30/2023 3:08 PM CDT Vidhi Espinosa MD POINT OF CARE TESTMARY G Performing Organization Address [facility]/ZIP Co de Phone Number [facility] Justyle [facility] CLIA# [id number] [address] [place] [address] * (ABNORMAL) POC GLUCOSE (01/30/2023 2:10 PM CDT) GLUCOSE POC 124(H) 74 - 99 mg/dL 01/30/2023 2:10 PM CDT [facility]OR[facility] SPECIMEN SOURCE, GLUCOSE POC Whole Blood 01/30/2023 2:10 PM CDT [facility] Blood, whole 01/30/2023 2:10 PM CDT 01/30/2023 2:18 PM CDT Vidhi Espinosa MD POINT OF CARE TESTMARY Delacruz [facility]# [id number] [address] [place] [address] * (ABNORMAL) POC GLUCOSE (01/30/2023 1:07 PM CDT) GLUCOSE POC 101(H) 74 - 99 mg/dL 01/30/2023 1:07 PM CDT [facility] LABORATORY [facility] SPECIMEN SOURCE, GLUCOSE POC Whole Blood 01/30/2023 1:07 PM CDT [facility] Blood, whole 01/30/2023 1:0 7 PM CDT 01/30/2023 1:15 PM CDT Vidhi Espinosa MD POINT OF CARE TESTIN Jayme [facility]# [id number] [address] [place] [address] * POC GLUCOSE (01/30/2023 12:00 PM CDT) GLUCOSE POC 92 74 - 99 mg/dL 01/30/2023 12:00 PM CDT [facility] LABOR[facility]ORY [facility] SPECIMEN SOURCE, GLUCOSE POC Whole Blood 01/30/2023 12:00 PM CDT [facility]ORY [facility] Blood, whole 01/30/2023 12:0 0 PM CDT 01/30/2023 12:46 PM CDT Vidhi Espinosa MD POINT OF CARE TESTIN Jayme [facility]# [id number] [address] [place] [address] * LACTIC ACID (01/30/2023 11:04 AM CDT) LACTIC ACID 1.2 <=2.0 mmol/L 01/30/2023 11:39 AM CDT [facility] Blood Venipuncture / Unknown 01/30/2023 11:04 AM CDT 01/30/2023 11:16 AM CDT Zbigniew Marino MD CHEMISTRY ORDERABL ES [facility] LABORATORY SERVICES [facility] CLIA# [id number] [address] [place] [address] [place] [address] * (ABNORMAL) COMPREHENSIVE METABOLIC PANEL (01/30/2023 11:04 AM CDT) SODIUM 136 136 - 145 mmol/L 01/30/2023 11:55 AM T [facility] LABORATORY SERVICES - . [facility] POTASSIUM 2.8(L) 3.5 - 5.0 mmol/L 01/30/2023 11:55 AM T [facility] LABORATORY SERVICES [facility] CHLORIDE 110(H) 98 - 107 mmol/L 01/30/2023 11:55 AM T [facility] LABORATORY [facility] CO2 16(L) 22 - 29 mmol/L 01/30/2023 11:55 AM T [facility] LABORATORY SERVICES - . [facility] CALCIUM 9.0 8.6 - 10.2 mg/dL 01/30/2023 11:55 AM T [facility] LABORATORY SERVICES - [facility] BUN 6 6 - 20 mg/dL 01/30/2023 11:55 AM T [facility] LABORATORY SERVICES [facility]. [facility] CREATININE 0.55 0.51 - 0.95 mg/dL 01/30/2023 11:55 AM T [facility] LABORATORY SERVICES [facility] GLUCOSE 89 74 - 99 mg/dL 01/30/2023 11:55 AM T [facility] LABORATORY SERVICES - [facility] TOTAL PROTEIN 5.1(L) 6.7 - 8.6 g/dL 01/30/2023 11:55 AM T [employer] LABORATORY SERVICES - [facility] ALBUMIN 3.1(L) 3.5 - 5.2 g/dL 01/30/2023 11:55 AM T [employer] LABORATORY SERVICES - [facility] BILIRUBIN TOTAL 0.7 0.3 - 1.2 mg/dL 01/30/2023 11:55 AM T [employer] LABORATORY SERVICES - [facility] ALKALINE PHOSPHATASE 103 35 - 104 U/L 01/30/2023 11:55 AM T [facility] AST 7 <33 U/L 01/30/2023 11:55 AM T [facility] ALT 8 <34 U/L 01/30/2023 11:55 AM T [facility] GFR >60 >=60 mL/min/1.7 3 sq meter 01/30/2023 11:55 AM T [facility] Comment:eGFR calculated with 2020 CKD-EPI equation. Vegetarian diet, extremely high or low muscle mass, and may affect results. Cystatin C with Glomerular Filtration Rate is a suitable alternative for these patients. ANION GAP 10 8 - 16 mmol/L 01/30/2023 11:55 AM [facility] Blood Venipuncture / Unknown 01/30/2023 11:04 AM CDT 01/30/2023 11:17 AM CDT [facility] - 01/30/2023 11:55 AM CDT Samples containing indocyanine green cause interferences on Total and/or Direct Bilirubin and must not be measured. Zbigniew Marino MD CHEMISTRY ORDERABL ES [facility]# [id number] [address] [place] [address] * (ABNORMAL) CBC WITH DIFFERENTIAL (01/30/2023 11:04 AM CDT) WBC 11.1(H) 4.0 - 9.8 K/uL 01/30/2023 11:25 AM T [facility] LABORATORY [facility] RBC 3.45(L) 3.90 - 4.90 M/uL 01/30/2023 11:25 AM T [facility] HEMOGLOBIN 9.0(L) 11.8 - 14.8 g/dL 01/30/2023 11:25 AM T [facility] HEMATOCRIT 27.5(L) 35.5 - 44.0 % 01/30/2023 11:25 AM CDT [employer] LABORATORY SERVICES - . [facility] MCV 79.7(L) 82.0 - 99.0 fL 01/30/2023 11:25 AM CDT [employer] LABORATORY SERVICES - . [facility] MCH 26.1(L) 27.2 - 32.6 pg 01/30/2023 11:25 AM CDT [facility] LABORATORY SERVICES - [facility] MCHC 32.7 31.5 - 35.5 g/dL 01/30/2023 11:25 AM CDT [facility] LABORATORY SERVICES - [facility] RDW 15.9(H) 11.5 - 14.5 % 01/30/2023 11:25 AM CDT [facility] LABORATORY SERVICES - [facility] RDW-STDEV 45.7 37.1 - 48.7 fL 01/30/2023 11:25 AM CDT [facility] LABORATORY SERVICES - [facility] PLATELETS 367(H) 140 - 350 K/uL 01/30/2023 11:25 AM CDT [facility] LABORATORY SERVICES - [facility] MPV 8.6(L) 9.3 - 12.4 fL 01/30/2023 11:25 AM [employer] [facility] LABORATORY SERVICES - . [facility] NEUTROPHILS 71 % 01/30/2023 11:25 AM CDT [facility] LABORATORY SERVICES - . [facility] LYMPHOCYTES 14 % 01/30/2023 11:25 AM CDT [facility] LABORATORY SERVICES - . [facility] MONOCYTES 13 % 01/30/2023 11:25 AM CDT [facility] LABORATORY SERVICES - . [facility] EOSINOPHILS 0 % 01/30/2023 11:25 AM CDT [facility] LABORATORY SERVICES - . [facility] BASOPHILS 0 % 01/30/2023 11:25 AM CDT [facility] LABORATORY SERVICES - . [facility] IMMATURE GRANULOCYTES 2 % 01/30/2023 11:25 AM CDT [facility] LABORATORY SERVICES - . [facility] Comment:IG (Immature Granulo cyte) count includes Metamyelocytes, Myelocytes, and Promyelocytes NEUTROPHIL ABSOLUTE 7.86(H) 1.90 - 7.00 K/uL 01/30/2023 11:25 AM CDT [facility] LABORATORY SERVICES - . [facility] LYMPHOCYTE ABSOLUTE 1.56 0.70 - 4.50 K/uL 01/30/2023 11:25 AM CDT [facility] LABORATORY SERVICES - [facility] MONOCYTE ABSOLUTE 1.45(H) 0.10 - 1.30 K/uL 01/30/2023 11:25 AM CDT [facility] LABORATORY SERVICES - . [facility] EOSINOPHIL ABSOLUTE 0.00 0.00 - 0.70 K/uL 01/30/2023 11:25 AM CDT [facility] LABORATORY SERVICES - . [facility] BASOPHILS ABSOLUTE 0.02 0.00 - 0.20 K/uL 01/30/2023 11:25 AM CDT [facility] LABORATORY SERVICES - . [facility] IMMATURE GRANULOCYTES ABSOLUTE 0.25(H) 0.00 - 0.03 K/uL 01/30/2023 11:25 AM CDT [facility] LABORATORY SERVICES - [facility] Blood Venipuncture / Unknown 01/30/2023 11:04 AM CDT 01/30/2023 11:17 AM CDT Zbigniew Marino MD HEMATOLOGY ORDERAB LES Performing Organization Address City/[facility]/ZIP Co de Phone Number [facility] CLIA# [id number] [address] [facility] [place] [address] * (ABNORMAL) POC GLUCOSE (01/30/2023 11:00 AM CDT) GLUCOSE POC 102(H) 74 - 99 mg/dL 01/30/2023 11:00 AM CDT [facility] LABORATORY SERVICES - [facility] SPECIMEN SOURCE, GLUCOSE POC Whole Blood 01/30/2023 11:00 AM CDT [facility] LABORATORY [facility] - [facility] Blood, whole 01/30/2023 11:0 0 AM CDT 01/30/2023 12:47 PM CDT Vidhi Espinosa MD POINT OF CARE TESTIN G Performing Organization Address City/[facility]/ZIP Co de Phone Number [facility] CLIA# [id number] [address] [facility] [place] [address] * POC GLUCOSE (01/30/2023 10:04 AM CDT) GLUCOSE POC 84 74 - 99 mg/dL 01/30/2023 10:04 AM CDT [facility] LABORATORY SERVICES - [facility] SPECIMEN SOURCE, GLUCOSE POC Whole Blood 01/30/2023 10:04 AM CDT [facility] LABORATORY SERVICES - [facility] Blood, whole 01/30/2023 10:0 4 AM CDT 01/30/2023 10:13 AM CDT Vidhi Espinosa MD POINT OF CARE TESTIN G Performing Organization Address City/[facility]/ZIP Co de Phone Number [facility]# [id number] [address] [place] [address] * POC GLUCOSE (01/30/2023 9:00 AM CDT) GLUCOSE POC 87 74 - 99 mg/dL 01/30/2023 9:00 AM CDT [facility] LABORATORY [facility] SPECIMEN SOURCE, GLUCOSE POC Whole Blood 01/30/2023 9:00 AM CDT [facility] LABORATORY [facility] Blood, whole 01/30/2023 9:00 AM CDT 01/30/2023 9:09 AM CDT Yazan Hernandez MD POINT OF CARE BLANCA Delacruz Performing Organization Address [facility] Co de Phone Number [facility] Justyle [facility]# [id number] [address] [place] [address] * POC GLUCOSE (01/30/2023 8:09 AM CDT) GLUCOSE POC 94 74 - 99 mg/dL 01/30/2023 8:09 AM CDT [facility] - [facility] SPECIMEN SOURCE, GLUCOSE POC Whole Blood 01/30/2023 8:09 AM CDT [facility] SERVICES [facility] Blood, whole 01/30/2023 8:09 AM CDT 01/30/2023 8:17 AM CDT Yazan Hernandez MD POINT OF CARE TESTMARY Delacruz [facility] Just[facility] [id number] [address] [place] [address] * (ABNORMAL) POC GLUCOSE (01/30/2023 6:59 AM CDT) GLUCOSE POC 103(H) 74 - 99 mg/dL 01/30/2023 6:59 AM CDT [facility] LABORATORY SERVICES - [facility] SPECIMEN SOURCE, GLUCOSE POC Whole Blood 01/30/2023 6:59 AM CDT [facility] LABORATORY SERVICES [facility] Blood, whole 01/30/2023 6:59 AM CDT 01/30/2023 8:17 AM CDT Yazan Hernandez MD POINT OF CARE CHIDIMARY Jayme Performing Organization Address [facility] Co de Phone Number [facility] Just[facility] CLIA# [id number] [address] [place] [address] * (ABNORMAL) POC GLUCOSE (01/30/2023 5:57 AM CDT) GLUCOSE POC 118(H) 74 - 99 mg/dL 01/30/2023 5:57 AM CDT [facility] LABORATORY [facility] SPECIMEN SOURCE, GLUCOSE POC Whole Blood 01/30/2023 5:57 AM CDT [facility] LABORATORY [facility] Blood, whole 01/30/2023 5:57 AM CDT 01/30/2023 8:17 AM CDT Yazan Hernandez MD POINT OF CARE BLANCA Delacruz [facility] Just[facility]# [id number] [address] [place] [address] * (ABNORMAL) POC GLUCOSE (01/30/2023 5:02 AM CDT) GLUCOSE POC 131(H) 74 - 99 mg/dL 01/30/2023 5:02 AM CDT [facility] Just[facility] SPECIMEN SOURCE, GLUCOSE POC Whole Blood 01/30/2023 5:02 AM CDT [facility] Blood, whole 01/30/2023 5:02 AM CDT 01/30/2023 8:17 AM CDT Yazan Hernandez MD POINT OF CARE TESTIN G Performing Organization Address City/[facility]/ZIP Co de Phone Number [facility] [employer] CLIA# [id number] [address] [address] * (ABNORMAL) HEMOGLOBIN A1C (01/30/2023 3:57 AM CDT) HEMOGLOBIN A1C 5.7(H) <5.7 % 01/30/2023 8:43 AM CDT [facility] EST. AVG GLUCOSE, A1C 117 mg/dL 01/30/2023 8:43 AM CDT [facility] Blood Venipuncture / Unknown 01/30/2023 3:57 AM CDT 01/30/2023 4:01 AM CDT Narrative [facility] LABORATORY [facility] - 01/30/2023 8:43 AM CDT HGB A1C INTERPRETATION NORMAL: ? <5.7% PRE-DIABETES: 5.7 - 6.4% DIABETES: ? 6.5% OR GREATER Manuel Goldstein MD CHEMISTRY ORDERABLES [facility] CLIA# [id number] [address] [place] [address] * (ABNORMAL) KETONES/BETA HYDROXYBUTYRATE (01/30/2023 3:57 AM CDT) BETA HYDROXYBUTYRATE 2.4(H) <0.4 mmol/L 01/30/2023 7:48 AM CDT [facility] Just[facility] Blood Venipuncture / Unknown 01/30/2023 3:57 AM CDT 01/30/2023 4:01 AM CDT Manuel Goldstein MD CHEMISTRY ORDERABLES Performing Organization Address [facility] Co de Phone Number [facility] [id number] [address] [place] [address] * (ABNORMAL) PHOSPHORUS (01/30/2023 3:57 AM CDT) PHOSPHORUS 1.0(L) 2.5 - 4.5 mg/dL 01/30/2023 4:37 AM CDT [facility] Blood Venipuncture / Unknown 01/30/2023 3:57 AM CDT 01/30/2023 4:01 AM CDT Mora Quevedo MD CHEMISTRY ORDHuma KONG Performing Organization Address [facility] Co de Phone Number [facility]# [id number] [address] [place], [place] [address] * (ABNORMAL) MAGNESIUM LEVEL (01/30/2023 3:57 AM CDT) MAGNESIUM 1.5(L) 1.6 - 2.6 mg/dL 01/30/2023 4:37 AM CDT [facility] Blood Venipuncture / Unknown 01/30/2023 3:57 AM CDT 01/30/2023 4:01 AM CDT Mora Quevedo MD CHEMISTRY ORDHuma KONG Performing Organization Address [facility] Co de Phone Number [facility] CLIA# [id number] [address] [place] [address] * LACTIC ACID (01/30/2023 3:57 AM CDT) LACTIC ACID 1.5 <=2.0 mmol/L 01/30/2023 4:19 AM CDT [employer] LABORATORY SERVICES - [facility] Blood Venipuncture / Unknown 01/30/2023 3:57 AM CDT 01/30/2023 4:02 AM CDT Zbigniew Marino MD CHEMISTRY ORDERABL ES [facility] [employer] SERVICES [facility] CLIA# [id number] [address] [address] * (ABNORMAL) COMPREHENSIVE METABOLIC PANEL (01/30/2023 3:57 AM CDT) Pathologist [facility] SODIUM 132(L) 136 - 145 mmol/L 01/30/2023 4:35 AM T [employer] LABORATORY SERVICES - . [facility] POTASSIUM 3.1(L) 3.5 - 5.0 mmol/L 01/30/2023 4:35 AM T [employer] SERVICES - [facility] CHLORIDE 107 98 - 107 mmol/L 01/30/2023 4:35 AM T [facility] LABORATORY SERVICES - [facility] CO2 11(L) 22 - 29 mmol/L 01/30/2023 4:35 AM T [facility] LABORATORY SERVICES - [facility] CALCIUM 8.8 8.6 - 10.2 mg/dL 01/30/2023 4:35 AM T [facility] LABORATORY SERVICES - [facility] BUN 6 6 - 20 mg/dL 01/30/2023 4:35 AM T [facility] LABORATORY SERVICES - [facility] CREATININE 0.53 0.51 - 0.95 mg/dL 01/30/2023 4:35 AM T [facility] LABORATORY SERVICES - [facility] GLUCOSE 128(H) 74 - 99 mg/dL 01/30/2023 4:35 AM T [facility] LABORATORY SERVICES - [facility] TOTAL PROTEIN 5.4(L) 6.7 - 8.6 g/dL 01/30/2023 4:35 AM T [facility] LABORATORY SERVICES - [facility] ALBUMIN 3.2(L) 3.5 - 5.2 g/dL 01/30/2023 4:35 AM T [facility] SERVICES - [facility] BILIRUBIN TOTAL 0.7 0.3 - 1.2 mg/dL 01/30/2023 4:35 AM [facility] ALKALINE PHOSPHATASE 108(H) 35 - 104 U/L 01/30/2023 4:35 AM [facility] AST 7 <33 U/L 01/30/2023 4:35 AM [facility] ALT 7 <34 U/L 01/30/2023 4:35 AM [facility] GFR >60 >=60 mL/min/1.7 3 sq meter 01/30/2023 4:35 AM [facility] Comment:eGFR calculated with 2020 CKD-EPI equation. Vegetarian diet, extremely high or low muscle mass, and may affect results. Cystatin C with Glomerular Filtration Rate is a suitable alternative for these patients. ANION GAP 14 8 - 16 mmol/L 01/30/2023 4:35 AM [facility] Blood Venipuncture / Unknown 01/30/2023 3:57 AM CDT 01/30/2023 4:01 AM T [facility] - 01/30/2023 4:35 AM CDT Samples containing indocyanine green cause interferences on Total and/or Direct Bilirubin and must not be measured. Zbigniew Marino MD CHEMISTRY ORDERABL ES [facility]# [id number] [address] [place] [address] * (ABNORMAL) CBC WITH DIFFERENTIAL (01/30/2023 3:57 AM CDT) WBC 14.0(H) 4.0 - 9.8 K/uL 01/30/2023 4:07 AM [facility] RBC 3.59(L) 3.90 - 4.90 M/uL 01/30/2023 4:07 AM [facility] HEMOGLOBIN 9.2(L) 11.8 - 14.8 g/dL 01/30/2023 4:07 AM CDT [employer] LABORATORY SERVICES - [facility] HEMATOCRIT 29.6(L) 35.5 - 44.0 % 01/30/2023 4:07 AM CDT [facility] LABORATORY SERVICES - . [facility] MCV 82.5 82.0 - 99.0 fL 01/30/2023 4:07 AM T [employer] LABORATORY SERVICES - [facility] MCH 25.6(L) 27.2 - 32.6 pg 01/30/2023 4:07 AM CDT [facility] LABORATORY SERVICES - [facility] MCHC 31.1(L) 31.5 - 35.5 g/dL 01/30/2023 4:07 AM [employer] LABORATORY SERVICES - [facility] RDW 15.9(H) 11.5 - 14.5 % 01/30/2023 4:07 AM [employer] LABORATORY SERVICES - [facility] RDW-STDEV 47.7 37.1 - 48.7 fL 01/30/2023 4:07 AM [facility] [employer] LABORATORY SERVICES - [facility] PLATELETS 364(H) 140 - 350 K/uL 01/30/2023 4:07 AM [facility] LABORATORY SERVICES - [facility] MPV 8.5(L) 9.3 - 12.4 fL 01/30/2023 4:07 AM [facility] [employer] LABORATORY SERVICES - [facility] NEUTROPHILS 73 % 01/30/2023 4:07 AM [facility] LABORATORY SERVICES - . [facility] LYMPHOCYTES 15 % 01/30/2023 4:07 AM [facility] LABORATORY SERVICES - . [facility] MONOCYTES 9 % 01/30/2023 4:07 AM CDT [employer] LABORATORY SERVICES - . [facility] EOSINOPHILS 0 % 01/30/2023 4:07 AM CDT [facility] LABORATORY SERVICES - . [facility] BASOPHILS 0 % 01/30/2023 4:07 AM CDT [facility] LABORATORY SERVICES - . [facility] IMMATURE GRANULOCYTES 3 % 01/30/2023 4:07 AM [facility] LABORATORY SERVICES - [facility] Comment:IG (Immature Granulo cyte) count includes Metamyelocytes, Myelocytes, and Promyelocytes NEUTROPHIL ABSOLUTE 10.15(H) 1.90 - 7.00 K/uL 01/30/2023 4:07 AM CDT [facility] LABORATORY SERVICES - [facility] LYMPHOCYTE ABSOLUTE 2.02 0.70 - 4.50 K/uL 01/30/2023 4:07 AM CDT [facility] LABORATORY SERVICES - [facility] MONOCYTE ABSOLUTE 1.27 0.10 - 1.30 K/uL 01/30/2023 4:07 AM CDT [facility] - . [facility] EOSINOPHIL ABSOLUTE 0.00 0.00 - 0.70 K/uL 01/30/2023 4:07 AM CDT [facility] - . [facility] BASOPHILS ABSOLUTE 0.05 0.00 - 0.20 K/uL 01/30/2023 4:07 AM CDT [facility] LABORATORY SERVICES - . [facility] IMMATURE GRANULOCYTES ABSOLUTE 0.47(H) 0.00 - 0.03 K/uL 01/30/2023 4:07 AM CDT [facility] LABORATORY SERVICES - [facility] Blood Venipuncture / Unknown 01/30/2023 3:57 AM CDT 01/30/2023 4:01 AM CDT Zbigniew Marino MD HEMATOLOGY ORDERAB LES [facility] CLIA# [id number] [address] [place] [address] * (ABNORMAL) POC GLUCOSE (01/30/2023 3:52 AM CDT) GLUCOSE POC 125(H) 74 - 99 mg/dL 01/30/2023 3:52 AM CDT [facility] LABORATORY SERVICES - [facility] SPECIMEN SOURCE, GLUCOSE POC Whole Blood 01/30/2023 3:52 AM CDT [facility]ORAT[facility] - [facility] Blood, whole 01/30/2023 3:52 AM CDT 01/30/2023 8:17 AM CDT Yazan Hernandez MD POINT OF CARE TESTIN G [facility] CLIA# [id number] [address] [place] [address] * (ABNORMAL) POC GLUCOSE (01/30/2023 2:51 AM CDT) GLUCOSE POC 153(H) 74 - 99 mg/dL 01/30/2023 2:51 AM CDT [facility] LABORATORY SERVICES - [facility] SPECIMEN SOURCE, GLUCOSE POC Whole Blood 01/30/2023 2:51 AM CDT [facility] LABORATORY SERVICES - [facility] Blood, whole 01/30/2023 2:51 AM CDT 01/30/2023 8:17 AM CDT Yazan Hernandez MD POINT OF CARE TESTMARY G Performing Organization Address City/[facility]/ZIP Co de Phone Number [facility]# [id number] [address] [place] [address] * (ABNORMAL) POC GLUCOSE (01/30/2023 2:08 AM CDT) GLUCOSE POC 167(H) 74 - 99 mg/dL 01/30/2023 2:08 AM CDT [facility] LABORATORY SERVICES - [facility] SPECIMEN SOURCE, GLUCOSE POC Whole Blood 01/30/2023 2:08 AM CDT [facility] LABORATORY [facility] Blood, whole 01/30/2023 2:08 AM CDT 01/30/2023 8:17 AM CDT Yazan Hernandez MD POINT OF CARE TESTMARY G [facility]# [id number] [address] [place] [address] * (ABNORMAL) POC GLUCOSE (01/30/2023 12:59 AM CDT) GLUCOSE POC 184(H) 74 - 99 mg/dL 01/30/2023 12:59 AM CDT [facility] LABORATORY [facility] SPECIMEN SOURCE, GLUCOSE POC Whole Blood 01/30/2023 12:59 AM CDT [facility] LABORATORY SERVICES - [facility] Blood, whole 01/30/2023 12:5 9 AM CDT 01/30/2023 8:17 AM CDT Yazan Hernandez MD POINT OF CARE TESTIN G Performing Organization Address [facility]/ZIP Co de Phone Number [facility]# [id number] [address] [place] [address] * LACTIC ACID (01/30/2023 12:15 AM CDT) LACTIC ACID 1.8 <=2.0 mmol/L 01/30/2023 12:53 AM CDT [facility] Blood Venipuncture / Unknown 01/30/2023 12:15 AM CDT 01/30/2023 12:20 AM CDT Zbigniew Marino MD CHEMISTRY ORDERABL ES Performing Organization Address [facility]/ZIP Co de Phone Number [facility]# [id number] [address] [place] [address] * (ABNORMAL) COMPREHENSIVE METABOLIC PANEL (01/30/2023 12:15 AM CDT) SODIUM 131(L) 136 - 145 mmol/L 01/30/2023 1:00 AM T [facility] - . [facility] POTASSIUM 3.7 3.5 - 5.0 mmol/L 01/30/2023 1:00 AM CDT [facility] - . [facility] CHLORIDE 103 98 - 107 mmol/L 01/30/2023 1:00 AM T [facility] - . [facility] CO2 7(L) 22 - 29 mmol/L 01/30/2023 1:00 AM CDT [facility] - . [facility] CALCIUM 8.7 8.6 - 10.2 mg/dL 01/30/2023 1:00 AM T [facility] - . [facility] BUN 6 6 - 20 mg/dL 01/30/2023 1:00 AM T [facility] - . [facility] CREATININE 0.52 0.51 - 0.95 mg/dL 01/30/2023 1:00 AM [facility] GLUCOSE 194(H) 74 - 99 mg/dL 01/30/2023 1:00 AM [facility] TOTAL PROTEIN 5.5(L) 6.7 - 8.6 g/dL 01/30/2023 1:00 AM [facility] ALBUMIN 3.2(L) 3.5 - 5.2 g/dL 01/30/2023 1:00 AM [facility] BILIRUBIN TOTAL 0.6 0.3 - 1.2 mg/dL 01/30/2023 1:00 AM [facility] ALKALINE PHOSPHATASE 113(H) 35 - 104 U/L 01/30/2023 1:00 AM [facility] AST 9 <33 U/L 01/30/2023 1:00 AM [facility] ALT 8 <34 U/L 01/30/2023 1:00 AM [facility] GFR >60 >=60 mL/min/1.7 3 sq meter 01/30/2023 1:00 AM [facility] Comment:eGFR calculated with 2020 CKD-EPI equation. Vegetarian diet, extremely high or low muscle mass, and may affect results. Cystatin C with Glomerular Filtration Rate is a suitable alternative for these patients. ANION GAP 21(H) 8 - 16 mmol/L 01/30/2023 1:00 AM [facility] Blood Venipuncture / Unknown 01/30/2023 12:15 AM T 01/30/2023 12:20 AM [facility] - 01/30/2023 1:00 AM [facility] Samples containing indocyanine green cause interferences on Total and/or Direct Bilirubin and must not be measured. Zbigniew Marino MD CHEMISTRY ORDERABL ES [facility] CLIA# [id number] 7 [facility] [address] [address] * (ABNORMAL) CBC WITH DIFFERENTIAL (01/30/2023 12:15 AM CDT) [facility] WBC 16.6(H) 4.0 - 9.8 K/uL 01/30/2023 12:28 AM CDT [facility] RBC 3.63(L) 3.90 - 4.90 M/uL 01/30/2023 12:28 AM CDT [facility] HEMOGLOBIN 9.3(L) 11.8 - 14.8 g/dL 01/30/2023 12:28 AM CDT [facility] - [facility] HEMATOCRIT 30.5(L) 35.5 - 44.0 % 01/30/2023 12:28 AM CDT [facility] MCV 84.0 82.0 - 99.0 fL 01/30/2023 12:28 AM CDT [facility] MCH 25.6(L) 27.2 - 32.6 pg 01/30/2023 12:28 AM CDT [facility] MCHC 30.5(L) 31.5 - 35.5 g/dL 01/30/2023 12:28 AM CDT [facility] RDW 15.9(H) 11.5 - 14.5 % 01/30/2023 12:28 AM CDT [facility] RDW-STDEV 48.7 37.1 - 48.7 fL 01/30/2023 12:28 AM CDT [facility] PLATELETS 342 140 - 350 K/uL 01/30/2023 12:28 AM CDT [facility] MPV 8.7(L) 9.3 - 12.4 fL 01/30/2023 12:28 AM CDT [facility] NEUTROPHILS 78 % 01/30/2023 12:28 AM CDT [facility] LYMPHOCYTES 10 % 01/30/2023 12:28 AM CDT [facility] MONOCYTES 8 % 01/30/2023 12:28 AM CDT [facility] EOSINOPHILS 0 % 01/30/2023 12:28 AM [facility] - . [facility] BASOPHILS 0 % 01/30/2023 12:28 AM [facility] IMMATURE GRANULOCYTES 4 % 01/30/2023 12:28 AM [facility] SERVICES - . [facility] Comment:IG (Immature Granulo cyte) count includes Metamyelocytes, Myelocytes, and Promyelocytes NEUTROPHIL ABSOLUTE 12.88(H) 1.90 - 7.00 K/uL 01/30/2023 12:28 AM [facility] LABORATORY [facility] - . [facility] LYMPHOCYTE ABSOLUTE 1.71 0.70 - 4.50 K/uL 01/30/2023 12:28 AM [facility] - . [facility] MONOCYTE ABSOLUTE 1.32(H) 0.10 - 1.30 K/uL 01/30/2023 12:28 AM [facility] - . [facility] EOSINOPHIL ABSOLUTE 0.00 0.00 - 0.70 K/uL 01/30/2023 12:28 AM [facility] LABORATORY [facility] - . [facility] BASOPHILS ABSOLUTE 0.05 0.00 - 0.20 K/uL 01/30/2023 12:28 AM [facility] - . [facility] IMMATURE GRANULOCYTES ABSOLUTE 0.62(H) 0.00 - 0.03 K/uL 01/30/2023 12:28 AM [facility] Blood Venipuncture / Unknown 01/30/2023 12:15 AM CDT 01/30/2023 12:20 AM CDT Zbigniew Marino MD HEMATOLOGY ORDERAB LES [facility] [id number] [facility] [address] [address] * (ABNORMAL) POC GLUCOSE (01/30/2023 12:11 AM CDT) GLUCOSE POC 193(H) 74 - 99 mg/dL 01/30/2023 12:11 AM CDT [facility] SPECIMEN SOURCE, GLUCOSE POC Whole Blood 01/30/2023 12:11 AM CDT [facility] Blood, whole 01/30/2023 12:1 1 AM CDT 01/30/2023 8:17 AM CDT Yazan Hernandez MD POINT OF CARE TESTIN Jayme [facility] CLIA# [id number] [address] [place] [address] * EKG 12-LEAD (01/29/2023 11:29 PM CDT) 01/29/2023 11:2 9 PM CDT Narrative INTERFACE SYSTEM - 01/31/2023 6:04 AM CDT ? Stationary ECG Study ? [facility] ? Test Date: ?01/29/2023 11:29 PM Pat Name: ? CHEY MENJIVAR ? Department: ?? 28 ?Room: ? 4217 01 Gender: ? F ?Dye Blender: ?? britd1 : ?[id number] ? Requested By: FRANK Varner Order Number: [id number] ? Reading MD: ?? Jacek ??Villarreal ? Measurements Intervals ?[place] ? Rate: ? 113 ?P: ?76 CT: ? 129 ?QRS: ?106 QRSD: ? 75 ? T: ?15 QT: ? 308 ? QTc: ?424 ? Interpretive Statements ? SINUS TACHYCARDIA MARKED RIGHT AXIS DEVIATION [QRS AXIS > 100] No previous ECG available for comparison Electronically Signed On 01-31-2023 6:04:10 CDT by Jacek ?Luz Maria Procedure Note Provider, Historical - 01/31/2023 Stationary ECG Study [facility] Test Date: 01/29/2023 11:29 PM Pat Name: CHEY MENJIVAR Department: 28 Room: [address] [place] [address] Gender: F Dye Blender: brigid : [id number] Requested By: FRANK Varner Order Number: [id number] Reading MD: Jacek Villarreal Measurements Intervals [place] Rate: 113 P: 76 CT: 129 QRS: 106 QRSD: 75 T: 15 QT: 308 QTc: 424 Interpretive Statements SINUS TACHYCARDIA MARKED RIGHT AXIS DEVIATION [QRS AXIS > 100] No previous ECG available for comparison Electronically Signed On 01-31-2023 6:04:10 CDT by Jacek Villarreal Mora Quevedo MD ECG ORDERABLES INTERFACE SYSTEM Refer to clinic/hospital department * (ABNORMAL) POC GLUCOSE (01/29/2023 10:59 PM CDT) [facility] GLUCOSE POC 189(H) 74 - 99 mg/dL 01/29/2023 10:59 PM CDT [facility] LABORATORY [facility] SPECIMEN SOURCE, GLUCOSE POC Whole Blood 01/29/2023 10:59 PM CDT [facility] Blood, whole 01/29/2023 10:5 9 PM CDT 01/30/2023 8:17 AM CDT Yazan Hernandez MD POINT OF CARE TESTIN G [facility] CLIA# [id number] [address] [place] [address] * BLOOD CULTURE (01/29/2023 10:34 PM CDT) [facility] BLOOD CULTURE No growth 02/05/2023 4:29 PM CDT [facility] LABORATORY [facility] Blood (Peripheral) Venipuncture / Unknown 01/29/2023 10:34 PM CDT 01/29/2023 10:41 PM CDT Narrative [facility] LABORATORY [facility] - 02/05/2023 4:29 PM CDT Specimen processed with suboptimal blood volume collected. Zbigniew Marino MD MICROBIOLOGY - GEN ERAL ORDERABLES Performing Organization Address City/[facility]/ZIP Co de Phone Number [facility] CLIA# [id number] [address] [place] [address] * (ABNORMAL) POC GLUCOSE (01/29/2023 10:30 PM CDT) [facility] GLUCOSE POC 169(H) 74 - 99 mg/dL 01/29/2023 10:30 PM CDT [facility] SPECIMEN SOURCE, GLUCOSE POC Whole Blood 01/29/2023 10:30 PM CDT [facility] Blood, whole 01/29/2023 10:3 0 PM CDT 01/30/2023 8:17 AM CDT Yazan Hernandez MD POINT OF CARE TESTIN G Performing Organization Address [facility]/ZIP Co de Phone Number [facility] CLIA# [id number] [address] [place] [address] * BLOOD CULTURE (01/29/2023 10:28 PM CDT) [facility] BLOOD CULTURE No growth 02/03/2023 11:47 PM CDT [facility] Blood (Peripheral) Venipuncture / Unknown 01/29/2023 10:28 PM CDT 01/29/2023 10:41 PM CDT Zbigniew Marino MD MICROBIOLOGY - GEN ERAL ORDERABLES Performing Organization Address City/[facility]/ZIP Co de Phone Number [facility] CLIA# [id number] [address] [place] [address] * (ABNORMAL) POC GLUCOSE (01/29/2023 10:04 PM CDT) [facility] GLUCOSE POC 187(H) 74 - 99 mg/dL 01/29/2023 10:04 PM CDT [facility] LABORATORY [facility] SPECIMEN SOURCE, GLUCOSE POC Whole Blood 01/29/2023 10:04 PM CDT [facility] LABORATORY [facility] Blood, whole 01/29/2023 10:0 4 PM CDT 01/30/2023 8:17 AM CDT Yazan Hernandez MD POINT OF CARE TESTIN G Performing Organization Address City/[facility]/ZIP Co de Phone Number [facility] CLVT# [id number] [address] [place] [address] * OSMOLALITY (01/29/2023 9:53 PM CDT) [facility] OSMOLALITY 287 275 - 300 mOsm/kg 01/29/2023 11:53 PM CDT [facility] LABORATORY [facility] Blood Venipuncture / Unknown 01/29/2023 9:53 PM CDT 01/29/2023 9:57 PM CDT Mora Quevedo MD CHEMISTRY HANDY KONG [facility]# [id number] [address] [place] [address] * (ABNORMAL) C-REACTIVE PROTEIN (01/29/2023 9:53 PM CDT) [facility] CRP 8.9(H) <5.0 mg/L 01/29/2023 10:39 PM CDT [facility] LABORATORY [facility] Blood Venipuncture / Unknown 01/29/2023 9:53 PM CDT 01/29/2023 9:57 PM CDT Mora Quevedo MD CHEMISTRY HANDY KONG [facility]# [id number] [address] [place] [address] * (ABNORMAL) PHOSPHORUS (01/29/2023 9:53 PM CDT) PHOSPHORUS 1.5(L) 2.5 - 4.5 mg/dL 01/29/2023 10:32 PM CDT [facility] LABORATORY [facility] Blood Venipuncture / Unknown 01/29/2023 9:53 PM CDT 01/29/2023 9:57 PM CDT Mora Quevedo MD CHEMISTRY HANDY KONG Performing Organization Address City/[facility]/ZIP Co de Phone Number [facility]# [id number] [address] [place] [address] * MAGNESIUM LEVEL (01/29/2023 9:53 PM CDT) MAGNESIUM 1.7 1.6 - 2.6 mg/dL 01/29/2023 10:32 PM CDT [facility] LABORATORY [facility] Blood Venipuncture / Unknown 01/29/2023 9:53 PM CDT 01/29/2023 9:57 PM CDT Mora Quevedo MD CHEMISTRY HANDY KONG [facility] Just[facility]# [id number] [address] [place] [address] * LACTIC ACID (01/29/2023 9:53 PM CDT) LACTIC ACID 1.8 <=2.0 mmol/L 01/29/2023 10:15 PM CDT [facility] LABORATORY [facility] Blood Venipuncture / Unknown 01/29/2023 9:53 PM CDT 01/29/2023 9:57 PM CDT Zbigniew Marino MD CHEMISTRY ORDERABL ES [facility] LABORATORY SERVICES - [facility] CLIA# [id number] [address] [facility] [address] [address] * (ABNORMAL) COMPREHENSIVE METABOLIC PANEL (01/29/2023 9:53 PM CDT) SODIUM 131(L) 136 - 145 mmol/L 01/29/2023 10:32 PM CDT [facility] - . [place] POTASSIUM 3.7 3.5 - 5.0 mmol/L 01/29/2023 10:32 PM CDT [facility] LABORATORY [facility] - . [facility] CHLORIDE 101 98 - 107 mmol/L 01/29/2023 10:32 PM CDT [facility] LABORATORY [facility] - . [facility] CO2 7(L) 22 - 29 mmol/L 01/29/2023 10:32 PM CDT [facility] LABORATORY SERVICES - . [facility] CALCIUM 9.1 8.6 - 10.2 mg/dL 01/29/2023 10:32 PM CDT [facility] SERVICES - . [place] Comment: Significant change from prior result, correlate clinically and redraw if necessary. Results called to Gretta Roman RN by Nurys Patricia at 10:31 PM on 01/29/2023 and read back verified. BUN 6 6 - 20 mg/dL 01/29/2023 10:32 PM T [facility] LABORATORY SERVICES - . [facility] CREATININE 0.58 0.51 - 0.95 mg/dL 01/29/2023 10:32 PM CDT [facility] LABORATORY SERVICES - . [facility] GLUCOSE 184(H) 74 - 99 mg/dL 01/29/2023 10:32 PM T [facility] LABORATORY [facility] - . [facility] TOTAL PROTEIN 6.4(L) 6.7 - 8.6 g/dL 01/29/2023 10:32 PM CDT [facility] - . [place] ALBUMIN 3.7 3.5 - 5.2 g/dL 01/29/2023 10:32 PM T [facility] Comment: Significant change from prior result, correlate clinically and redraw if necessary. Results called to Gretta Roman RN by Nurys Patricia at 10:31 PM on 01/29/2023 and read back verified. BILIRUBIN TOTAL 0.7 0.3 - 1.2 mg/dL 01/29/2023 10:32 PM T [facility] ALKALINE PHOSPHATASE 135(H) 35 - 104 U/L 01/29/2023 10:32 PM T [facility] AST 11 <33 U/L 01/29/2023 10:32 PM [facility] ALT 9 <34 U/L 01/29/2023 10:32 PM T [facility] GFR >60 >=60 mL/min/1.7 3 sq meter 01/29/2023 10:32 PM [facility] Comment:eGFR calculated with 2020 CKD-EPI equation. Vegetarian diet, extremely high or low muscle mass, and may affect results. Cystatin C with Glomerular Filtration Rate is a suitable alternative for these patients. ANION GAP 23(H) 8 - 16 mmol/L 01/29/2023 10:32 PM [facility] Blood Venipuncture / Unknown 01/29/2023 9:53 PM CDT 01/29/2023 9:57 PM CDT Narrative [facility] - 01/29/2023 10:32 PM CDT Samples containing indocyanine green cause interferences on Total and/or Direct Bilirubin and must not be measured. Zbigniew Marino MD CHEMISTRY ORDERABL ES [facility] CLIA# [id number] [address] [facility] [address] [address] * (ABNORMAL) CBC WITH DIFFERENTIAL (01/29/2023 9:53 PM CDT) WBC 18.5(H) 4.0 - 9.8 K/uL 01/29/2023 10:02 PM CDT [facility] - [facility] RBC 4.25 3.90 - 4.90 M/uL 01/29/2023 10:02 PM CDT [facility] - . [facility] HEMOGLOBIN 10.9(L) 11.8 - 14.8 g/dL 01/29/2023 10:02 PM CDT [facility] - . [place] HEMATOCRIT 35.5 35.5 - 44.0 % 01/29/2023 10:02 PM CDT [facility] - . [facility] MCV 83.5 82.0 - 99.0 fL 01/29/2023 10:02 PM CDT [facility] - . [place] MCH 25.6(L) 27.2 - 32.6 pg 01/29/2023 10:02 PM CDT [facility] - . [facility] MCHC 30.7(L) 31.5 - 35.5 g/dL 01/29/2023 10:02 PM CDT [facility] - . [place] RDW 16.2(H) 11.5 - 14.5 % 01/29/2023 10:02 PM CDT [facility] - . [facility] RDW-STDEV 49.0(H) 37.1 - 48.7 fL 01/29/2023 10:02 PM CDT [facility] - . [facility] PLATELETS 422(H) 140 - 350 K/uL 01/29/2023 10:02 PM CDT [facility]AT[facility] SERVICES - . [facility] MPV 8.7(L) 9.3 - 12.4 fL 01/29/2023 10:02 PM CDT [facility] NEUTROPHILS 80 % 01/29/2023 10:02 PM CDT [facility] LYMPHOCYTES 8 % 01/29/2023 10:02 PM CDT [facility] MONOCYTES 7 % 01/29/2023 10:02 PM CDT [facility] EOSINOPHILS 0 % 01/29/2023 10:02 PM CDT [facility] BASOPHILS 0 % 01/29/2023 10:02 PM CDT [facility] IMMATURE GRANULOCYTES 4 % 01/29/2023 10:02 PM CDT [facility] LABORATORY SERVICES [facility] Comment:IG (Immature Granulo cyte) count includes Metamyelocytes, Myelocytes, and Promyelocytes NEUTROPHIL ABSOLUTE 14.79(H) 1.90 - 7.00 K/uL 01/29/2023 10:02 PM CDT [facility] LABORATORY [facility] LYMPHOCYTE ABSOLUTE 1.55 0.70 - 4.50 K/uL 01/29/2023 10:02 PM CDT [facility] LABORATORY [facility] MONOCYTE ABSOLUTE 1.32(H) 0.10 - 1.30 K/uL 01/29/2023 10:02 PM CDT [facility] LABORATORY SERVICES [facility] EOSINOPHIL ABSOLUTE 0.06 0.00 - 0.70 K/uL 01/29/2023 10:02 PM CDT [facility] LABORATORY [facility] BASOPHILS ABSOLUTE 0.08 0.00 - 0.20 K/uL 01/29/2023 10:02 PM CDT [facility] LABORATORY [facility] IMMATURE GRANULOCYTES ABSOLUTE 0.74(H) 0.00 - 0.03 K/uL 01/29/2023 10:02 PM CDT [facility] LABORATORY [facility] Blood Venipuncture / Unknown 01/29/2023 9:53 PM CDT 01/29/2023 9:57 PM CDT Zbigniew Marino MD HEMATOLOGY ORDERAB LES [facility]# [id number] [address] [place] [address] * (ABNORMAL) POC GLUCOSE (01/29/2023 8:16 PM CDT) GLUCOSE POC 144(H) 74 - 99 mg/dL 01/29/2023 8:16 PM CDT [facility] LABORATORY [facility] SPECIMEN SOURCE, GLUCOSE POC Whole Blood 01/29/2023 8:16 PM CDT [facility] Blood, whole 01/29/2023 8:16 PM CDT 01/29/2023 9:10 PM CDT Zbigniew Marino MD POINT OF CARE TEST ING Performing Organization Address [facility]/ZIP Co de Phone Number [facility]# [id number] [address] [place] [address] * (ABNORMAL) POC GLUCOSE (01/29/2023 7:02 PM CDT) GLUCOSE POC 134(H) 74 - 99 mg/dL 01/29/2023 7:02 PM CDT [facility] SPECIMEN SOURCE, GLUCOSE POC Whole Blood 01/29/2023 7:02 PM CDT [facility] Blood, whole 01/29/2023 7:02 PM CDT 01/29/2023 7:10 PM CDT Zbigniew Marino MD POINT OF CARE TEST ING Performing Organization Address [facility] Co de Phone Number [facility] [id number] [address] [place] [address] * (ABNORMAL) PROTEIN/CREATININE RATIO, URINE (01/29/2023 6:58 PM CDT) PROTEIN CONCENTRATION 115(H) 0 - 20 mg/dL 01/29/2023 7:50 PM CDT [facility] CREATININE, URINE 57.8 29.0 - 226.0 mg/dL 01/29/2023 7:50 PM CDT [facility] LABORATORY [facility] Comment:Reference Range vari es with fluid intake and diet. PROTEIN/CREAT RATIO, URINE 1.99(H) 0.00 - 0.19 mg/mg Creatinine 01/29/2023 7:50 PM CDT [facility] LABORATORY [facility] Urine URINE SPECIMEN OBTAINED BY CLEAN CATCH PROCEDURE / Unknown Collection / Unknown 01/29/2023 6:58 PM CDT 01/29/2023 7:14 PM CDT Narrative [facility] LABORATORY [facility] - 01/29/2023 7:50 PM CDT The ACOG 2013 Guidelines recommend using a cutoff of >/= 0.30 protein/creatinine ratio for the diagnosis and management of preeclampsia. Zbigniew Marino MD URINE ORDERABLES [facility] [id number] [address] [place] [address] * INFLUENZA A/B, RSV AND COVID-19 PCR PANEL (01/29/2023 6:49 PM CDT) [facility] COVID-19 PCR NOT DETECTED Not Detected 01/30/20 7:57 PM CDT [facility] LABORATORY [facility] Influenza A by PCR NOT DETECTED Not Detected 01/29/2023 7:57 PM CDT [facility] LABORATORY [facility] Influenza B by PCR NOT DETECTED Not Detected 01/29/2023 7:57 PM CDT [facility] LABORATORY [facility] RSV by PCR NOT DETECTED Not Detected 01/29/2023 7:57 PM CDT [facility] Upper Respiratory ENTIRE NASOPHARYNX / Unknown Collection / Unknown 01/29/2023 6:49 PM CDT 01/29/2023 6:56 PM CDT Narrative [facility] - 01/29/2023 7:57 PM CDT [...] Marino MD MICROBIOLOGY - GEN ERAL ORDERABLES [facility]# [id number] [address] [place] [address] * (ABNORMAL) LACTATE DEHYDROGENASE (01/29/2023 6:48 PM CDT) Pathologist [facility] LD (LACTATE DEHYDROGENASE) 240(H) 135 - 214 U/L 01/29/2023 7:34 PM CDT [facility] Blood Venipuncture / Unknown 01/29/2023 6:48 PM CDT 01/29/2023 6:56 PM CDT Zbigniew Marino MD CHEMISTRY ORDERABL ES Performing Organization Address [facility]/ZIP Co de Phone Number [facility] - [facility]# [id number] [address] [place] [address] * TYPE AND SCREEN (01/29/2023 6:48 PM CDT) Pathologist [facility] ABO GROUP O 01/29/2023 9:05 PM CDT [facility] -- [facility] RH (D) TYPE Positive 01/29/2023 9:05 PM CDT [facility] ANTIBODY SCREEN Negative 01/29/2023 9:05 PM CDT [facility] Blood Venipuncture / Unknown 01/29/2023 6:48 PM CDT 01/29/2023 7:35 PM CDT Zbigniew Marino MD BLOOD BANK ORDERAB LES Performing Organization Address [facility]/ZIP Co de Phone Number [facility]# [id number] [address] [place] [address] * (ABNORMAL) URINALYSIS WITH REFLEX MICROSCOPIC (01/29/2023 5:27 PM CDT) COLOR UA Yellow Pale to Dark Yellow 01/29/2023 6:09 PM CDT [facility] CLARITY UA Slightly Cloudy(A) Clear 01/29/2023 6:09 PM CDT [facility] SPECIFIC GRAVITY UA 1.020 1.003 - 1.035 01/29/2023 6:09 PM CDT [facility] PH UA 5.0 5.0 - 8.0 01/29/2023 6:09 PM CDT [facility] LEUKOCYTE ESTERASE UA Negative Negative 01/29/2023 6:09 PM CDT [facility] NITRITE UA Negative Negative 01/29/2023 6:09 PM CDT [facility] PROTEIN UA 3+(A) Negative 01/29/2023 6:09 PM CDT [facility] GLUCOSE UA 1+(A) Negative 01/29/2023 6:09 PM CDT [facility] KETONES UA 2+(A) Negative 01/29/2023 6:09 PM CDT [facility] UROBILINOGEN UA Normal <2.0 mg/dL 6:09 PM CDT [facility] BILIRUBIN UA Negative Negative 01/29/2023 6:09 PM CDT [facility] SERVICES - [facility] BLOOD UA 1+(A) Negative 01/29/2023 6:09 PM CDT [facility] - [facility] WBC UA 3-5(A) 0 - 2 /hpf 01/29/2023 6:09 PM CDT [facility] RBC UA 3-5(A) 0 - 2 /hpf 01/29/2023 6:09 PM CDT [facility] SERVICES - [facility] BACTERIA UA Negative Negative /hpf 01/29/2023 6:09 PM CDT [facility] EPITHELIAL CELLS, URINE 6-10(A) 0 - 5 /hpf 01/29/2023 6:09 PM CDT [facility] Urine URINE SPECIMEN OBTAINED BY CLEAN CATCH PROCEDURE / Unknown Collection / Unknown 01/29/2023 5:27 PM CDT 01/29/2023 5:53 PM CDT Frank Morley MD URINE ORDERABLES [facility] [id number] [address] [place] [address] * (ABNORMAL) POC GLUCOSE (01/29/2023 5:16 PM CDT) GLUCOSE POC 128(H) 74 - 99 mg/dL 01/29/2023 5:16 PM CDT [facility] SPECIMEN SOURCE, GLUCOSE POC Whole Blood 01/29/2023 5:16 PM CDT [facility] Blood, whole 01/29/2023 5:16 PM CDT 01/29/2023 5:24 PM CDT Zbigniew Marino MD POINT OF CARE TEST ING Performing Organization Address [facility]/ZIP Co de Phone Number [facility] CLIA# [id number] [address] [place] [address] * (ABNORMAL) URIC ACID (01/29/2023 5:03 PM CDT) URIC ACID 7.7(H) 2.4 - 5.7 mg/dL 01/29/2023 8:46 PM CDT [facility] Blood Venipuncture / Unknown 01/29/2023 5:03 PM CDT 01/29/2023 5:15 PM CDT Zbigniew Marino MD CHEMISTRY ORDERABL ES Performing Organization Address [facility]/ZIP Co de Phone Number [facility] CLVT# [id number] [address] [place] [address] * (ABNORMAL) KETONES/BETA HYDROXYBUTYRATE (01/29/2023 5:03 PM CDT) BETA HYDROXYBUTYRATE 6.9(H) <0.4 mmol/L 01/29/2023 8:46 PM CDT [facility] Blood Venipuncture / Unknown 01/29/2023 5:03 PM CDT 01/29/2023 5:15 PM CDT Frank Morley MD CHEMISTRY ORDERABLES [facility] SERVICES - [facility] CLIA# [id number] [address] [place] [address] * (ABNORMAL) COMPREHENSIVE METABOLIC PANEL (01/29/2023 5:03 PM CDT) SODIUM 134(L) 136 - 145 mmol/L 01/29/2023 6:11 PM CDT [facility] - [facility] POTASSIUM 4.3 3.5 - 5.0 mmol/L 01/29/2023 6:11 PM CDT [facility] - [facility] CHLORIDE 100 98 - 107 mmol/L 01/29/2023 6:11 PM CDT [facility] - [facility] CO2 7(L) 22 - 29 mmol/L 01/29/2023 6:11 PM CDT [facility] - [facility] CALCIUM 10.9(H) 8.6 - 10.2 mg/dL 01/29/2023 6:11 PM CDT [facility] - [facility] BUN 7 6 - 20 mg/dL 01/29/2023 6:11 PM CDT [facility] - [facility] CREATININE 0.65 0.51 - 0.95 mg/dL 01/29/2023 6:11 PM CDT [facility] - [facility] GLUCOSE 139(H) 74 - 99 mg/dL 01/29/2023 6:11 PM CDT [facility] - [facility] TOTAL PROTEIN 9.3(H) 6.7 - 8.6 g/dL 01/29/2023 6:11 PM CDT [facility] - [facility] ALBUMIN 5.4(H) 3.5 - 5.2 g/dL 01/29/2023 6:11 PM CDT [facility]ATORY SERVICES - [facility] BILIRUBIN TOTAL 0.8 0.3 - 1.2 mg/dL 01/29/2023 6:11 PM CDT [facility] - [facility] ALKALINE PHOSPHATASE 195(H) 35 - 104 U/L 01/29/2023 6:11 PM CDT [facility] - [facility] AST 15 <33 U/L 01/29/2023 6:11 PM CDT [facility] - [facility] ALT 10 <34 U/L 01/29/2023 6:11 PM T [facility] GFR >60 >=60 mL/min/1.7 3 sq meter 01/29/2023 6:11 PM T [facility] Comment:eGFR calculated with 2020 CKD-EPI equation. Vegetarian diet, extremely high or low muscle mass, and may affect results. Cystatin C with Glomerular Filtration Rate is a suitable alternative for these patients. ANION GAP 27(H) 8 - 16 mmol/L 01/29/2023 6:11 PM T [facility] Blood Venipuncture / Unknown 01/29/2023 5:03 PM CDT 01/29/2023 5:15 PM CDT [facility] LABORATORY [facility] - 01/29/2023 6:11 PM CDT Samples containing indocyanine green cause interferences on Total and/or Direct Bilirubin and must not be measured. Frank Morley MD CHEMISTRY ORDERABLES [facility] CLIA# [id number] [address] [place] [address] * (ABNORMAL) CBC WITH DIFFERENTIAL (01/29/2023 5:03 PM CDT) WBC 20.2(H) 4.0 - 9.8 K/uL 01/29/2023 5:46 PM CDT [facility] RBC 5.02(H) 3.90 - 4.90 M/uL 01/29/2023 5:46 PM T [facility] HEMOGLOBIN 12.7 11.8 - 14.8 g/dL 01/29/2023 5:46 PM CDT [facility] HEMATOCRIT 42.2 35.5 - 44.0 % 01/29/2023 5:46 PM CDT [facility] MCV 84.1 82.0 - 99.0 fL 01/29/2023 5:46 PM CDT [facility] - [facility] MCH 25.3(L) 27.2 - 32.6 pg 01/29/2023 5:46 PM CDT [facility] - [facility] MCHC 30.1(L) 31.5 - 35.5 g/dL 01/29/2023 5:46 PM CDT [facility] - [facility] RDW 16.1(H) 11.5 - 14.5 % 01/29/2023 5:46 PM CDT [facility] - [facility] RDW-STDEV 49.1(H) 37.1 - 48.7 fL 01/29/2023 5:46 PM CDT [facility] - [facility] PLATELETS 487(H) 140 - 350 K/uL 01/29/2023 5:46 PM CDT [facility] - [facility] MPV 8.7(L) 9.3 - 12.4 fL 01/29/2023 5:46 PM CDT [facility] - [facility] NEUTROPHILS 80 % 01/29/2023 5:46 PM CDT [facility] - [facility] LYMPHOCYTES 8 % 01/29/2023 5:46 PM CDT [facility] - . [facility] MONOCYTES 7 % 01/29/2023 5:46 PM CDT [facility] SERVICES - . [facility] EOSINOPHILS 0 % 01/29/2023 5:46 PM CDT [facility] - [facility] BASOPHILS 1 % 01/29/2023 5:46 PM CDT [facility] - [facility] IMMATURE GRANULOCYTES 4 % 01/29/2023 5:46 PM CDT [facility] SERVICES - . [facility] Comment:IG (Immature Granulo cyte) count includes Metamyelocytes, Myelocytes, and Promyelocytes NEUTROPHIL ABSOLUTE 16.12(H) 1.90 - 7.00 K/uL 01/29/2023 5:46 PM CDT [facility] - . [facility] LYMPHOCYTE ABSOLUTE 1.66 0.70 - 4.50 K/uL 01/29/2023 5:46 PM CDT [facility] SERVICES - . [facility] MONOCYTE ABSOLUTE 1.46(H) 0.10 - 1.30 K/uL 01/29/2023 5:46 PM CDT [facility] SERVICES - . [facility] EOSINOPHIL ABSOLUTE 0.00 0.00 - 0.70 K/uL 01/29/2023 5:46 PM CDT [facility]ATORY SERVICES - [facility] BASOPHILS ABSOLUTE 0.10 0.00 - 0.20 K/uL 01/29/2023 5:46 PM CDT [facility]ORY SERVICES - [facility] IMMATURE GRANULOCYTES ABSOLUTE 0.87(H) 0.00 - 0.03 K/uL 01/29/2023 5:46 PM CDT [facility]ORY SERVICES - [facility] Blood Venipuncture / Unknown 01/29/2023 5:03 PM CDT 01/29/2023 5:15 PM CDT Frank Morley MD HEMATOLOGY ORDERABLE S Performing Organization Address [facility]/ZIP Co de Phone Number [facility] CLIA# [id number] [address], [place] [address] * (ABNORMAL) POC GLUCOSE (01/29/2023 4:05 PM CDT) [facility] GLUCOSE POC 134(H) 74 - 99 mg/dL 01/29/2023 4:05 PM CDT [facility] LAB[facility]ORY [facility] - [facility] SPECIMEN SOURCE, GLUCOSE POC Whole Blood 01/29/2023 4:05 PM CDT [facility] - [facility] Blood, whole 01/29/2023 4:05 PM CDT 01/29/2023 4:13 PM CDT Frank Morley MD POINT OF CARE TESTIN G Performing Organization Address [facility]/ZIP Co de Phone Number [facility] CLIA# [id number] [address], [place] [address] * RPR (09/25/2022) [facility] ABSTRACTED RPR Non Reactive EXTERNAL LAB Blood Historical Provider CHEMISTRY ORDERABLES Performing Organization Address City/[facility]/ZIP Co de Phone Number EXTERNAL LAB * TYPE AND SCREEN (09/25/2022) ABSTRACTED ABOGROUP O EXTERNAL LAB ABSTRACTED RH(D) TYPE Positive EXTERNAL LAB Blood Historical Provider BLOOD BANK ORDERABLE S EXTERNAL LAB * HIV DETECTION W/REFLX CONFIRMATION (09/25/2022) ABSTRACTED HIV-1 AND 2 ABS Non Reactive EXTERNAL LAB Blood Historical Provider CHEMISTRY ORDERABLES EXTERNAL LAB * HEPATITIS B SURFACE ANTIGEN (09/25/2022) Pathologist [facility] ABSTRACTED HEPATITIS B SURFACE AG Non Reactive EXTERNAL LAB Blood Historical Provider CHEMISTRY ORDERABLES Performing Organization Address City/[facility]/ZIP Co de Phone Number EXTERNAL LAB * RUBELLA IGG (09/25/2022) ABSTRACTED RUBELLA IGG Immune EXTERNAL LAB Blood Historical Provider CHEMISTRY ORDERABLES Performing Organization Address City/[facility]/ZIP Co de Phone Number EXTERNAL LAB documented in this encounter Visit Diagnoses Not [...] Oral, EVERY 6 HOURS PRN, Starting on 01/29/23 at 1911, Until 02/13/23 at 1542, Indigestion, [...] of 8 doses, Routine dextrose 5% - sodium chloride 0.9% infusion [...] 325 mg, Oral, DAILY, First dose on 02/07/23 at 0900, Until [...] Other (See Comment), N/V in OBRR, Routine ibuprofen (MOTRIN) tablet 600 mg 600 mg, Oral, EVERY 6 HOURS, First dose on 02/08/23 at 1200, Until Discontinued, Routine, Post-op - Floor Given 02/13/2023 9:09 AM CDT 600 mg Given 02/13/2023 2:22 AM CDT 600 mg Given 02/12/2023 8:19 PM CDT 600 mg insulin glargine-yfgn injection 12 Units 12 Units, subCUT, DAILY AT BEDTIME, First dose (after last modification) on Nurys 02/11/23 at 2100, Until Discontinued, Routine Given 02/12/2023 10:01 PM CDT 12 Units Abdomen, Left Lower Quadrant Patient/Family Admin 02/11/2023 10:29 PM CDT 12 Units Abdomen, Left Lower Quadrant insulin lispro (HumaLOG) variable dose injection subCUT, THREE TIMES DAILY WITH MEALS, First dose (after last modification) on Wed02/10/23 at 0800, Until Discontinued, Routine Given 02/13/2023 9:20 AM CDT 7 Units Abdomen, Right Lower Quadrant Given 02/12/2023 8:15 PM CDT 7 Units Ab domen, Right Lower Quadrant Given 02/12/2023 2:08 PM CDT 7 Units Ab domen, Left Upper Quadrant loperamide (IMODIUM) capsule 2 mg 2 mg, Oral, FOUR TIMES DAILY PRN, Starting on Wed02/03/23 at 1204, Until 02/13/23 at 1542, Diarrhea/Loose Stools, Routine Given 02/03/2023 1:20 PM CDT 2 mg methylergonovine maleate (METHERGINE) 0.2 mg/mL (1 mL) injection 0.2 mg 0.2 mg, IM, EVERY 2 HOURS PRN, 2 doses, Starting on 02/07/23 at 0447, Until 02/13/23 at 1542, Other (See Comment), for excessive bleeding in the immediate period as needed after consultation with resident or attending physician - Maximum of 2 doses, Routine miSOPROStoL (CYTOTEC) tablet 800 mcg 800 mcg, [...] 125 mL/hr, CONTINUOUS, Starting on 02/07/23 at 0430, Until 02/13/23 at 1542, Routine New Bag 02/07/2023 5:29 AM CDT vit-iron fumarate-fa () 28 mg iron- 800 mcg per tablet 1 Tablet 1 Tablet, Oral, DAILY, First dose on 01/30/23 at 0900, Until Discontinued, Routine Given 02/13/2023 9:09 AM CDT 1 Tablet Given 02/12/2023 8:15 AM CDT 1 Tablet Given 02/11/2023 9:05 AM CDT 1 Tablet prochlorperazine (COMPAZINE) injection 10 mg 10 mg, IV, EVERY 6 HOURS PRN, Starting on 02/01/23 at 0839, Until 02/13/23 at 1542, Nausea, [...] Given 02/08/2023 6:52 PM CDT 80 mg tranexamic acid (CYKLOKAPRON) 1,000 mg in sodium chloride (iso-osmotic) 100 mL IVPB 1,000 mg, IV, ONE TIME PRN, 1 dose, Starting on 02/07/23 at 0447, Until 02/13/23 at 1542, Other (See Comment), Physician consultation required before administration for appropriate medication selection, Routine documented in this encounter Active and Recently Administered Medications Times are shown in CDT. Scheduled Medication Order 02/11/2023 02/12/2023 02/13/2023 acetaminophen (TYLENOL) tablet 650 mg 650 mg, Oral, EVERY 6 HOURS, First dose on 02/08/23 at 0615, Until Discontinued, Routine, Post-op - Floor 0206 (Given - Provider: Diane Machado RN)0905 (Given - Provider: Yadira Hurley RN)1350 (Given - Provider: Yadira Hurley RN)2037 (Given - Provider: Marylou Schwartz RN) 0233 (Given - Provider: Marylou Schwartz RN)0815 (Given - Provider: Aziza Grimm RN)1407 (Given - Provider: Aziza Grimm RN)2019 (Given - Provider: Shonda Beckford RN) 0222 (Given - Provider: Shonda Beckford RN)0909 (Given - Provider: Viridiana Wayne RN) dextrose [...] on Wed01/29/23 at 2100, Until Discontinued, Routine 904 (Given - Provider: Yadira Hurley RN)2100 (Refused - Provider: Marylou Schwartz RN) 08 (Given - Provider: Aziza Grimm RN)2019 (Refused - Provider: Shonda Beckford RN) 09 (Given - Provider: Viridiana Wayne RN) enoxaparin (LOVENOX) injection 40 mg 40 mg, subCUT, EVERY 24 HOURS, First dose on Wed02/08/23 at 0800, Until Discontinued, Routine, Indication: Prophylaxis of VTE 904 (Given - Provider: Yadira Hurley RN) 814 (Given - Provider: Aziza Grimm RN) 09 (Given - Provider: Viridiana Wayne RN) ferrous sulfate tablet 325 mg 325 mg, Oral, DAILY, First dose on Wed02/07/23 at 0900, Until Discontinued, Routine, Post-op - Floor 904 (Given - Provider: Yadira Hurley RN) 814 (Given - Provider: Aziza Grimm RN) 09 (Given - Provider: Viridiana Wayne RN) glucagon HCL 1 mg/mL injection 1 mg 1 mg, IM, SEE ADMIN INSTRUCTIONS, Starting on Wed01/29/23 at 2139, Until 02/13/23 at 1542, Routine ibuprofen (MOTRIN) tablet 600 mg 600 mg, Oral, EVERY 6 HOURS, First dose on 02/08/23 at 1200, Until Discontinued, Routine, Post-op - Floor 0206 (Given - Provider: Diane Machado RN)0905 (Given - Provider: Yadira Hurley, RN)1350 (Given - Provider: Yadira Hurley, RN)2037 (Given - Provider: Marylou Schwartz RN) 0233 (Given - Provider: Marylou Schwartz RN)0815 (Given - Provider: zAiza Grimm, MARY)1407 (Given - Provider: Aziza Grimm, MARY)2018 (Given - Provider: Shonda Beckford RN) 022 (Given - Provider: Shonda Beckford RN)09 (Given - Provider: Viridiana Wayne RN) insulin glargine-yfgn injection 12 Units 12 Units, subCUT, DAILY AT BEDTIME, First dose (after last modification) on Wed02/11/23 at 2100, Until Discontinued, Routine 2228 (Patient/Family Admin - Provider: Marylou Schwartz RN) 220 (Given - Provider: Shonda Beckford, MARY) insulin glargine-yfgn injection 8 Units (COMPLETED) 8 [...] dose, On Nurys 02/11/23 at 2130, Routine 2124 (Patient/Family Admin - Provider: Marylou Schwartz, MARY - Comment: verified by Porter Lopez RN) insulin lispro (HumaLOG) injection 3 Units (COMPLETED) 3 Units, subCUT, ONE TIME ONLY, 1 dose, On Wed02/11/23 at 1130, Routine 1126 (Patient/Family Admin - Provider: Yadira Hurley, RN - Comment: BS [id number]) insulin lispro (HumaLOG) injection 3 Units (COMPLETED) 3 Units, subCUT, ONE TIME ONLY, 1 dose, On Wed02/12/23 at 0515, Routine 0507 (Patient/Family Admin - Provider: Marylou Schwartz, MARY) insulin lispro (HumaLOG) injection 4 Units (COMPLETED) 4 Units, subCUT, ONE TIME ONLY, 1 dose, On Wed02/11/23 at 0230, Routine 0236 (Given - Provider: Diane Machado, MARY) insulin lispro (HumaLOG) injection 4 Units (COMPLETED) 4 Units, subCUT, ONE TIME ONLY, 1 dose, On Wed02/11/23 at 0515, Routine 0524 (Given - Provider: Diane Machado, MARY) insulin lispro (HumaLOG) variable dose injection subCUT, THREE TIMES DAILY WITH MEALS, First dose (after last modification) on Wed02/10/23 at 0800, Until Discontinued, Routine 0948 (Patient/Family Admin - Provider: Yadira Hurley, RN - Comment: BS 256GP/TS)1342 (Patient/Family Admin [...] 50gms carbs- 5 unitsBS 202- 2 units) 0920 (Given - Provider: Viridiana N Wayne, RN - Comment: POC before breakfast: 1735 units (breakfast 54g)2 additional units = 7 units total)1200 (Due) modified lanolin (LANOLIN HFA) 100 % topical cream Topical, SEE ADMIN INSTRUCTIONS, Starting on 02/07/23 at 0843, Until 02/13/23 at 1542, Routine, Post-op - Floor naloxone (NARCAN) 0.4 mg/mL injection 0.1 mg 0.1 mg, IV, SEE ADMIN INSTRUCTIONS, Starting on Wed01/29/23 at 2137, Until 02/13/23 at 1542, Routine vit-iron fumarate-fa () 28 mg iron- 800 mcg per tablet 1 Tablet 1 Tablet, Oral, DAILY, First dose on 01/30/23 at 0900, Until Discontinued, Routine 0905 (Given - Provider: Yadira Hurley RN) 0815 (Given - Provider: Aziza Grimm RN) 09 (Given - Provider: Viridiana Wayne RN) scopolamine (TRANSDERM-SCOP) 1 mg/72 hr transdermal patch 1 Patch 1 Patch, Transdermal, EVERY 72 HOURS, First dose on Wed01/29/23 at 1900, Until Discontinued, Routine sennosides-docusate sodium (SENNA-S) 8.6-50 mg per tablet 1 Tablet 1 Tablet, Oral, DAILY AT BEDTIME, First dose on 02/07/23 at 2100, Until Discontinued, Routine, Post-op - Floor 2100 (Refused - Provider: Marylou Schwartz RN) 2018 (Refused - Provider: Shonda Beckford RN) Continuous Medication Order 02/11/2023 02/12/2023 02/13/2023 dextrose 5% - lactated ringers infusion IV, at 200 mL/hr, CONTINUOUS, Starting on Wed01/29/23 at 2145, Until 01/30/23 at 2144, Routine dextrose 5% - lactated ringers infusion IV, at 50 mL/hr, CONTINUOUS, Starting on 02/06/23 at 1715, Until 02/07/23 at 1714, Routine lactated ringers infusion IV, at 75 mL/hr, CONTINUOUS, Starting on Wed02/01/23 at 0115, Until Tu02/02/23 at 0114, Routine lactated ringers infusion IV, [...] Rectal, TWO TIMES DAILY PRN, Starting on Wed02/07/23 at 0843, Until 02/13/23 at 1542, Hemorrhoids, [...] IV, EVERY 6 HOURS PRN, Starting on Wed02/08/23 [...] Oral, EVERY 6 HOURS PRN, Starting on 02/08/23 [...] IV, EVERY 6 HOURS PRN, Starting on 02/01/23 at 0839, Until 02/13/23 at 1542, Nausea, [...]
--- OUTSIDE RECORDS SUMMARY | 2024-05-10 19:01 | XMS_ITS | Encounter Summary ---
Author Organization [facility] Address [address] [place] [address] Care Team Providers Care Digester Hand Name Role Phone Unavailable Primary Care Provider Unavailabl e Reason for Visit * Reason Onset Date Comments Medical Records 08/13/2022 Encounter Details Date Type Department Care Team (Late st Contact Info) Description 08/13/2022 Telephone [facility] [place] [id number] [place] [address] Pato Castorena MD [address] [place] [address] Medical Records Social History Tobacco Use Types Packs/Day Years Used Date Smoking Tobacco: Never Assessed Comments Yes Sex and Gender Information Value [...] Telephone Encounter - Angelica Mcpherson RN - 08/13/2022 2:45 PM CDT Patient referred to [facility] for DM1. Was scheduled with RD 08/12 but did not keep the appointment. She is open to rescheduling. Type I Diabetes Checklist: -Date of Diagnosis: age 13 -Managed outside by: Dr Sanches at [facility] -Last office visit: unknown -Last A1C: 6.7 per patient, date unknown -Last TSH: unknown -Last dilated eye exam: > 5 years. Patient will find opth close to home. Denies [facility] referral -Last EKG: unknown -Chronic complications: possible gastroparesis but workup was neg per pt -DKA admit(s): 10 since Jan 2021 -Last admit: unknown -Insulin Pump Make and Model: TSlim -Start date: unknown -Type of Insulin used: humalog -Back up insulin plan: it is in her fridge. I asked she check that the expiration date -CGM name: Dexcom -Glucometer name: juju -Feels hypoglycemic at: feels shaky and sweaty in the 60s but claims that she has been unaware in the 40s if she was too busy -Hypoglycemia treatment: 15-30g of carb depending on how low. Juice or candy -Glucagon at home? yes -Last used: never -Ketosticks at home? yes -Health And Wellness Coordinator/MIN consult: needs rescheduled -Encouraged 1:1 with GENE Fay, MIN (if not scheduled). Reviewed target blood sugar levels withpt and instructed to send logs weekly and prn PLAN Obtain tandem PW for data sharing. Waiting on her my diallo reply with this info. Reschedule RD consult. Kell Haji asked to help with this. Get records from OB- I called them on 08/13 and requested this. MFM consult 08/19 Time, date location discussed with patient. INSULIN PUMP BASAL RATES TIME DATE 2433-1290 [id number] CARB RATIO TIME DATE 7737-8209 [id number] SENSITIVITY TIME DATE 0574-2212 TARGET TIME TARGET RANGE 3426-4684 documented in this encounter Plan of Treatment Not on file documented as of this encounter Visit Diagnoses Not on filedocumented in this encounter
--- OUTSIDE RECORDS SUMMARY | 2024-05-10 19:01 | XMS_ITS | Encounter Summary ---
Author Organization [facility] Address [address] Attn: Epic Prelude ADT [place] [address] Care Team Providers Care Certified Public Accountant Name Role Phone Unavailable Primary Care Provider Unavailabl e Encounter Details Date Type Department Care Team (Latest Contact Info) Description 01/29/2023 Travel Social History Tobacco Use Types Packs/Day Years Used Date Smoking Tobacco: Never Passive Smoke Exposure: Never Smokeless Tobacco: Never Alcohol Use Standard Drinks/Week Comments Not Currently 0 (1 standard drink = 0.6 oz pur e alcohol) Feeling Safe Answer Date Recorded Are you in a relationship wi th someone who hurts you emotionally and/or physically? Unable to obtain 01/29/2023 Comments Yes Sex and Gender Information Value [...]
--- OUTSIDE RECORDS SUMMARY | 2024-05-10 19:01 | XMS_ITS | Encounter Summary ---
Author Organization [facility] Address [address] [place] [address] Care Team Providers Care Data Communications Technician Name Role Phone Unavailable Primary Care Provider Unavailabl e Reason for Referral * Radiology Services (Routine) - Closed Specialty Diagnoses / Procedures Referred By Rachael frey Referred To Contact Radiology Diagnoses Supervision of high risk in second trimester 27 weeks gestation of Type 1 diabetes mellitus without complication Procedures US MONITORING NST US OB LIMITED + NST NV NONSTRESS TEST CHG US UTERUS LIMITED 1/> FETUSES Kelli Neal MD [address] [place] [address], [place] [address] [facility] [place] [address] [place] [address] Referral ID Status Reason Start Date Expiration Date Visits Re quested Visits Authorized [id number] Closed 12/10/2022 01/30/2023 1 1 Reason for Visit * Radiology Services (Routine) - Closed Specialty Diagnoses / Procedures Referred By Rachael t Referred To Contact Radiology Diagnoses Supervision of high risk in second trimester 27 weeks gestation of Type 1 diabetes mellitus without complication Procedures US MONITORING NST US OB LIMITED + NST NV NONSTRESS TEST CHG US UTERUS LIMITED 1/> FETUSES Kelli Neal MD [address] [place] [address], [place] [address] [facility] [address] [place] [address] Referral ID Status Reason Start Date Expiration Date Visits Re quested Visits Authorized [id number] Closed 12/10/2022 01/30/2023 1 1 Encounter Details Date Type Department Care Team (Late st Contact Info) Description 01/21/2023 2:15 PM CDT - 01/21/2023 11:59 PM CDT Hospital Encounter [facility] [place] [address] [place] [address] Kelli Neal MD [address] [facility] [place] [id number] Discharge Disposition: Home or Self Care Social [...] Name Priority Date/Time Associated Diagnosis Comments US MONITORING NST Routine 01/21/2023 4:09 PM CDT Supervision of high risk in second trimester 27 weeks gestation of Type 1 diabetes mellitus without complication documented in this encounter Results * US MONITORING NST (01/21/2023 4:09 PM CDT) Anatomical Region Laterality Modality Ultrasound 01/21/2023 3:46 PM CDT Narrative 01/21/2023 4:28 PM CDT NON STRESS TEST STUDY ----- Pat. Name: KARINA FUCHS Study Date: 01/21/2023 3:46pm Pat. NO: [id number] Referring ??MD: PHILOMENA MOORE MD Site: [place] [employer]: : 1995 Age: 27 ----- INDICATION ----- Pre-existing Type 1 Diabetes Mellitus Obesity, Other Maternal Care for Low Transverse Scar from Previous Delivery (Previous ) CODING ----- Diagnoses ? Z3A.33: Weeks of gestation ?O34.211: Maternal care for low transverse scar from previous delivery ?E66.8: Other obesity ?O24.013: Pre-existing type 1 diabetes mellitus, in Procedures ?86468: NST/ monitoring. 1 HISTORY ----- OB History ? 5. Para 1 ?T1A3L1 MATERNAL ASSESSMENT ----- Physical Exam ? Blood pressure 111/66 mmHg. Heart rate 77 bpm METHOD ----- EFM ----- Rodriguez . Number of fetuses: 1 DATING ----- Cycle: regular cycle, regular cycle Prior assessment by: Outside US GA by prior assessment 33 w + 2 d AARTI by prior assessment: 03/09/2023 Method of dating: Restore dating from previous exam Assigned: based on stated AARTI, selected on 09/17/2022 Assigned GA 33 w + 2 d Assigned AARTI: 03/09/2023 GENERAL EVALUATION ----- Presentation: not visualized NON STRESS TEST ----- NST interpretation: reactive. Test duration 67 min. Baseline FHR 150 bpm. Baseline variability: moderate. Accelerations: Present. Decelerations: Not present. Uterine activity: absent Some of the strip was not captured in QS COMMENT ----- Nursing notes: Patient denies vaginal bleeding or leaking of amniotic fluid. Patient denies any contractions. Patient states fetus is positive for movement. Patient stated that her fasting blood sugar was 94 this morning. Patient scheduled twice weekly. [facility] specialist,Dr. Castorena, reviewed FHR tracing findings prior to discharge. Patient then transferred to ultrasound after NST. IMPRESSION ----- Findings ? Comment Reactive non-stress test (NST) Procedure Note Pato Castorena MD - 01/21/2023 NON STRESS TEST STUDY ----- Pat. Name:Harlan FUCHS Date:01/21/2023 3:46pm Pat. NO: [id number] :PHILOMENA MOORE MD Site:[employer]: :1995Age:27 ----- INDICATION ----- Pre-existing Type 1 Diabetes Mellitus Obesity, Other Maternal Care for Low Transverse Scar from Previous Delivery (Previous ) CODING ----- Diagnoses Z3A.33: Weeks of gestation O34.211: Maternal care for low transverse scarfrom previous delivery E66.8: Other obesity O24.013: Pre-existing type 1 diabetes mellitus, inpregnancy Procedures 26694: NST/ monitoring. 1 HISTORY ----- OB History 5. Para 1 T1A3L1 MATERNAL ASSESSMENT ----- Physical Exam Blood pressure 111/66 mmHg. Heart rate 77 bpm METHOD ----- EFM ----- Rodriguez . Number of fetuses: 1 DATING ----- Cycle:regular cycle, regular cycle Prior assessment by:Outside US GA by prior [id number] w + 2 d AARTI by prior assessment:03/09/2023 Method of dating:Restore dating from previous exam Assigned:based on stated AARTI, selected on 09/17/2022 Assigned GA33 w + 2 d Assigned AARTI:03/09/2023 GENERAL EVALUATION ----- Presentation: not visualized NON STRESS TEST ----- NST interpretation: reactive. Test duration 67 min. Baseline FHR 150 bpm.Baseline variability: moderate. Accelerations: Present. Decelerations: Not present. Uterine activity: absent Some of the strip was not captured in QS COMMENT ----- Nursing notes: Patient denies vaginal bleeding or leaking of amnioticfluid. Patient denies any contractions. Patient states fetus is positive for movement. Patient stated that her fasting bloodsugar was 94 this morning. Patient scheduled twice weekly. [facility] specialist,Dr. Csatorena, reviewed FHR tracing findings prior todischarge. Patient then transferred to ultrasound after NST. IMPRESSION ----- Findings Comment Reactive non-stress test (NST) Kelli Neal MD US ORDERABLES documented in this encounter Visit Diagnoses Diagnosis Supervision of high risk in second trimester Unspecified high-risk 27 weeks gestation of state, incidental Type 1 diabetes mellitus without complication Type I (juvenile type) diabetes mellitus without mention of complication, not stated as uncontrolled documented in this encounter
--- OUTSIDE RECORDS SUMMARY | 2024-05-10 19:01 | XMS_ITS | Encounter Summary ---
Author Organization [facility] Address [address] [place] [address] Care Team Providers Care Co Founder Name Role Phone Unavailable Primary Care Provider Unavailabl e Reason for Visit * Reason Onset Date Comments No Show 10/16/2022 Encounter Details Date Type Department Care Team (Late st Contact Info) Description 10/16/2022 Telephone [facility] MATERNAL MEDICINE [place] [address] [facility] [address] [place] [address] Merari Jara NP [address] [address] No Show Social History Tobacco Use Types Packs/Day Years [...] Miscellaneous Notes * Telephone Encounter - Kathryn Ramos - 10/16/2022 10:47 AM CDT Karina was a no show for appointment today with Sara Jara. Called and left message for her to call back to reschedule. Kathryn Ramos, 10/16/2022 10:48 AM documented in this encounter Plan of Treatment Not on file documented as of this encounter Visit Diagnoses Not on filedocumented in this encounter
--- OUTSIDE RECORDS SUMMARY | 2024-05-10 19:01 | XMS_ITS | Encounter Summary ---
Author Organization [facility] Address [address] [place] [address] Care Team Providers Care Cylinder Machine Operator Pulp Drier Name Role Phone Unavailable Primary Care Provider Unavailabl e Reason for Visit * Reason Comments Diabetes Encounter Details Date Type Department Care Team (Late st Contact Info) Description 10/08/[address] [facility] MATERNAL MEDICINE [place] [address] [place] [phone] Roxann Jansen MD [address] [facility] [address] [place] [address] Diabetes Social History Tobacco Use [...] Progress Notes * Roxanna Rodrigues RN - 10/08/2022 11:58 AM CDT Images from the original note were not included. [facility] Maternal Medicine Diabetes Log Review Gestational age: 18w2d Type of DM: DM1 Current regimen: Humalog via Tandem insulin pump + Dexcom CGM Comments: Pump and CGM data reviewed. Pt is currently in Control IQ and uses sleep mode overnights.Average daily glucose per CGM is 139. Current average total daily dose of insulin 38.61 units. Of this, 56% is basal and 44% is bolus insulin. Most recent pump adjustments were made on 09/08 but pt didnot make these changes for unclear reasons. -Lows overnight with highs before lunch Recommendations: -Decrease basal rates at 0000 and 1900 by 6% -Increase basal rate at 0300 by 4% -Adjust ISF based on TDD of 38 units using rule of 1700 -See pump changes below in bold -Send logs weekly and prn INSULIN PUMP Control IQ ON Control IQ ON BASAL RATES TIME Current 10/08 7647-5466 0.9 0.85 5359-1672 1.2 1.25 2175-8993 0.8 0.80 0057-8682 0.9 0.85 CARB RATIO TIME Current 10/08 9394-2009 8 8 3559-0058 8 8 2329-1214 8 8 2810-0647 8 8 SENSITIVITY TIME Current 10/08 5336-9612 30 45 TARGET TIME TARGET RANGE [phone] Roxanna Rodrigues RN Certified Diabetes Care & Edu Specialist [facility] Maternal Medicine Physician Attestation: Log reviewed. Agree with above recommendations. No additional changes at this time. Roxann Jansen MD Maternal Medicine documented in this encounter Plan of Treatment Not on file documented as of this encounter Visit Diagnoses Not on filedocumented in this encounter
--- OUTSIDE RECORDS SUMMARY | 2024-05-10 19:01 | XMS_ITS | Encounter Summary ---
Author Organization [facility] Address [address] [place] [address] Care Team Providers Care Label Drier Name Role Phone Unavailable Primary Care Provider Unavailabl e Reason for Visit * Reason Onset Date Comments Nausea 01/20/2023 Encounter Details Date Type Department Care Team (Late st Contact Info) Description 01/20/2023 Telephone [facility] MATERNAL MEDICINE [place] [address] [place] [address] Kanchan Sanchez MD [address] [facility] [address] [place] [phone] Nausea Social History Tobacco Use Types Packs/Day Years [...] Telephone Encounter - Kathryn Reyes RN - 01/20/2023 3:57 PM CDT Patient calls with reports of nausea/vomiting q2-3 days. Has gastroparesis. Scopolamine patch. Has had a yogurt and smoothie today so far. Last vomited Wednesday AM. BG are stable and she is staying hydrated. No concerns to present to triage presently. Explained if BG persistently >200 mg/dL, nausea/vomiting, ketones - to present to [facility] immediately. States understanding. No further questions at this time. Kathryn Reyes RN, BSN, [facility] Certified Diabetes Care & Edu Specialist [facility] Maternal Medicine [phone] documented in this encounter Plan of Treatment Not on file documented as of this encounter Visit Diagnoses Not on filedocumented in this encounter
--- OUTSIDE RECORDS SUMMARY | 2024-05-10 19:01 | XMS_ITS | Encounter Summary ---
Author Organization [facility] Address [address] [place] [address] Care Team Providers Care Night Auditor Name Role Phone Unavailable Primary Care Provider Unavailabl e Reason for Visit * Reason Comments Erroneous encounter-disregard Encounter Details Date Type Department Care Team (Late st Contact Info) Description 10/16/2022 Chart Note [facility] MATERNAL MEDICINE [place] [address] [place] [address] Merari Jara NP [address] [address] Erroneous encounter-disregard Social History Tobacco Use Types Packs/Day Years Used Date Smoking Tobacco: Never Alcohol Use Standard Drinks/Week Comments Not Currently 0 (1 standard drink = 0.6 oz pur e alcohol) Comments Yes Sex and Gender Information Value Date Recorded Sex Assigned at Not on file Gender Identity Not on file Sexual Orientation Not on file documented as of this encounter Progress Notes * Kathryn Reyes RN - 10/16/2022 8:21 AM CDT Error documented in this encounter Plan of Treatment Not on file documented as of this encounter Visit Diagnoses Not on filedocumented in this encounter
--- OUTSIDE RECORDS SUMMARY | 2024-05-10 19:01 | XMS_ITS | Encounter Summary ---
Author Organization [facility] Address [address] [facility] Attn: Epic Prelude ADT TOMI VARGAS [address] Care Team Providers Care Diesel Inspector Name Role Phone Unavailable Primary Care Provider Unavailabl e Encounter Details Date Type Department Care Team (Latest Contact Info) Description 08/31/2022 Travel Social History Tobacco Use Types Packs/Day [...]
--- OUTSIDE RECORDS SUMMARY | 2024-05-10 19:01 | XMS_ITS | Encounter Summary ---
Author Organization [facility] Address [address] [place] [address] Care Team Providers Care Fur Scraper Name Role Phone Unavailable Primary Care Provider Unavailabl e Reason for Visit * Reason Onset Date Comments Apointment Changes 10/27/2022 Encounter Details Date Type Department Care Team (Late st Contact Info) Description 10/27/2022 Telephone [facility] Maternal and Medicine - [facility] [address] [facility] [address] [place] [address] Zbigniew Marino MD [address] [facility] [address] [place] [address] Apointment Changes Social History Tobacco Use Types Packs/Day Years [...] * Telephone Encounter - Juany Tom - 10/27/2022 10:01 AM CDT Called patient to change her upcoming appointment that she has scheduled for 11/18. She is a returning patient in an initial spot. She can reschedule with Sara MORRISON. documented in this encounter Plan of Treatment Not on file documented as of this encounter Visit Diagnoses Not on filedocumented in this encounter
--- OUTSIDE RECORDS SUMMARY | 2024-05-10 19:01 | XMS_ITS | Encounter Summary ---
Author Organization [facility] Address [address] [place] [address] Care Team Providers Care Welfare Project Manager Name Role Phone Unavailable Primary Care Provider Unavailabl e Reason for Visit * Reason Onset Date Comments Diabetes 10/29/2022 c Encounter Details Date Type Department Care Team (Late st Contact Info) Description 10/29/2022 Telephone [facility] Maternal and Medicine - [facility] [address] [place] [address] Zbigniew Marino MD [address] [facility] [address] [place] [address] Diabetes (c) Social History Tobacco Use Types Packs/Day Years [...] Telephone Encounter - Kathryn Reyes RN - 10/29/2022 9:22 AM CDT Called patient and received voicemail. Call was placed to ask for permission to review insulin pumpand CGM - last review 10/08. Patient is currently scheduled for MFM initial appointment on 11/17 at 0900 - patient has already had initial consult and needs a follow up appointment. Will cancel this initial appointment and notified patient on voicemail to call back LUPE to reschedule MFM follow up. Kathryn Reyes RN, BSN, [facility] Certified Diabetes Care & Edu Specialist [facility] Maternal Medicine [phone] documented in this encounter Plan of Treatment Not on file documented as of this encounter Visit Diagnoses Not on filedocumented in this encounter
--- OUTSIDE RECORDS SUMMARY | 2024-05-10 19:01 | XMS_ITS | Encounter Summary ---
Author Organization [facility] Address [address] [place] [address] Care Team Providers Care Necktie Operator Pockets And Pieces Name Role Phone Unavailable Primary Care Provider Unavailabl e Reason for Visit * Reason Comments Pt Ed Encounter Details Date Type Department Care Team (Late st Contact Info) Description 11/26/2022 9:00 AM CDT Video Visit [facility] Maternal and Medicine - [facility] [address] [facility] [address] [place] [address] Type 1 diabetes mellitus with other specified complication (Primary Dx) Social History Tobacco Use Types [...] as of this encounter Progress Notes * Nya Gan, RD - 11/26/2022 10:47 AM CDT Images from the original note were not included. Patient's identity confirmed yes Patient gave verbal consent to have these services billed to their insurance and expressed understanding that co-insurance and deductible may apply: yes This encounter was completed via two-way synchronous audio and video communication. [facility] Maternal Medicine Outpatient Medical Nutrition Therapy Individual Consult- Video Visit Start Time: 9:15am End Time:10:15am Name: Karina Fuchs Date of : 1995 Age: 27 y.o. Referring Physician: Dr. Velazquez Date of Visit: 11/26/2022 EDC: Estimated Date of Delivery: 03/09/23 Number of Weeks Gestation: 25w2d Diagnosis: Type I DM Pt reporting every other week is sick 2-3 days with nausea and vomiting, likely catered to gastroparesis. States had gastric emptying study done few years ago, but was not conclusive to dx of gastroparesis. On days where she is sick she does manual boluses to keep her BG levels in control. On more normal days where she is able to stomach solid foods she has been doing her best to enter grams of carbohydrates into her pump and take boluses 10-15 minutes before the meal. Voices some frustrations with her control, in particular to post meal spikes. Exercise: walks 30 minutes daily Dietary recall: Breakfast: cereal- either Cheerios or cornflakes with 2% milk or light flavored yogurt with blue berries- reports estimates about 35-45 gm CHO for these meals Snack: - Lunch: deli sandwich with 2 slices of white bread or frozen meal Snack: snap peas with ranch dressing Dinner: pasta dishes with chicken + corn/peas/green beans/leafy salads/potatoes/cooked broccoli; other proteins- ground beef, ground pork or pork chops/steak Snack: - PAST MEDICAL HISTORY Past Medical History: Diagnosis Date DM (diabetes mellitus) MEDICATIONS Current Outpatient Medications on File Prior to Visit Medication Sig Dispense Refill insulin aspart U-100 [...] 120 Tablet 4 No current facility-administered medications on file prior to visit. LABS: Hemoglobin A1C: No results found for: HGBA1C , [id number] ASSESSMENT/SUMMARY OF COUNSELING Self-Monitoring of Blood Glucose -Recommended monitoring BG for FBG/1 hr pp/pre-meal/HS/3AM -Reviewed glycemic target goals for -FBG <95 -1 hr pp <140 -Pre-meal 90-100 -HS 80-120 -Plans for reporting BG logs at least weekly to [facility] Diabetes team through [employer]- pt has Dexcom CGM Physical Activity -Discussed benefits of physical activity -Recommended goal of 30 minutes/day -Explained relationship between activity, stress, nutrition and insulin on glucose levels Healthy Eating -Defined healthy eating basics for -Reviewed effect of carbohydrate, protein and fat on glycemic control -Reviewed food groups and recommended servings/day -Discussed carbohydrate food groups focusing on complex carbohydrate sources -Carbohydrate counting: Meal Planning Recommendations: Breakfast- 15-30 grams carbohydrates Lunch- 30-45 grams carbohydrates Dinner- 30-45 grams carbohydrates Snacks (goal for 2-3/day)- 15 grams carbohydrates -Label reading -Menu planning PLAN/RECOMMENDATIONS/GOALS: Sent the following materials through [facility]: Low-Residue Diet and Balanced Plate Goals: 1. To submit logs weekly to [facility] for review, logging BG levels from Dexcom for FBG/pre/post/HS/3AM 2. To eat 3 meals and 2-3 snack daily focusing on carbohydrate consistency -Follow low-residue diet- avoid all raw vegetables and high fibrous fresh fruits, avoid rough/stringy/tough meat, white refined grains in moderation, low- fat dairy Breakfast: light yogurt + banana (avoid berries) or homemade smoothie Lunch/Dinner: cooked vegetables (riced cauliflower/broccoli, carrots, green beans) + ground/tender meat + grain/starchy veg (sweet potatoes or little white pasta) + fruit (melon, banana, peeled fruits) 3. Exercise 30 minutes per day- continue walking 4. Liquid diet during gastroparesis flares- pt has Andres shakes Goal Evaluation: 3 Evaluation of Goals: Based on a scale of 0-5: (5=always, 0=never, 3=50% achieved) Consult Visit with [facility] physician scheduled: yes- follow- up visit with [facility] provider Dr. Ángel Gan RDN, [facility] Maternal Medicine [phone] ext [phone] documented in this encounter Plan of Treatment Not on file documented as of this encounter Visit Diagnoses Diagnosis Type 1 diabetes mellitus with other specified complication- Primary documented in this encounter
--- OUTSIDE RECORDS SUMMARY | 2024-05-10 19:01 | XMS_ITS | Encounter Summary ---
Author Organization [facility] Address [address] [place] [address] Care Team Providers Care Screening Nurse Name Role Phone Unavailable Primary Care Provider Unavailabl e Reason for Referral * Radiology Services (Routine) - Closed Specialty Diagnoses / Procedures Referred By Rachael frey Referred To Contact Diagnoses Supervision of high risk in second trimester 27 weeks gestation of Type 1 diabetes mellitus without complication Procedures US OB LIMITED + NST DC NONSTRESS TEST CHG US UTERUS LIMITED 1/> FETUSES Kelli Neal MD [address] [place] [address], [place] [address] Referral ID Status Reason Start Date Expiration Date Visits Re quested Visits Authorized [id number] Closed 12/10/2022 01/30/2023 1 1 Reason for Visit * Radiology Services (Routine) - Closed Specialty Diagnoses / Procedures Referred By Rachael frey Referred To Contact Diagnoses Supervision of high risk in second trimester 27 weeks gestation of Type 1 diabetes mellitus without complication Procedures US OB LIMITED + NST DC NONSTRESS TEST CHG US UTERUS LIMITED 1/> FETUSES Kelli Neal MD [address] [place] [address], [place] [address] Referral ID Status Reason Start Date Expiration Date Visits Re quested Visits Authorized [id number] Closed 12/10/2022 01/30/2023 1 1 Encounter Details Date Type Department Care Team ([facility] st Contact Info) Description 01/25/2023 9:30 AM CDT - 01/25/2023 11:59 PM CDT Hospital Encounter [facility] [place] [address] [place] [address] eKlli Neal MD [address] [place] [place] [id number] Discharge Disposition: Home or Self Care Social [...] Date/Time Associated Diagnosis Comments US OB LIMITED + NST Routine 01/25/2023 10:28 AM CDT Supervision of high risk in second trimester 27 weeks gestation of Type 1 diabetes mellitus without complication documented in this encounter Results * US OB LIMITED + NST (01/25/2023 10:28 AM CDT) Anatomical Region Laterality Modality Pelvis Ultrasound 01/25/2023 3:55 PM CDT Narrative 01/25/2023 1:11 PM CDT MODIFIED [facility] STUDY ----- Pat. Name: KARINA FUCHS Study Date: 01/25/2023 3:55pm Pat. NO: [id number] Referring ??MD: PHILOMENA MOORE MD Site: [place] [employer]: : 1995 Age: 27 ----- INDICATION ----- Pre-existing Type 1 Diabetes Mellitus Obesity, Other Maternal Care for Low Transverse Scar from Previous Delivery (Previous ) CODING ----- Diagnoses ? Z3A.33: Weeks of gestation ?O34.211: Maternal care for low transverse scar from previous delivery ?E66.8: Other obesity ?O24.013: Pre-existing type 1 diabetes mellitus, in Procedures ?22179: NST/ monitoring. 1 ?66365: Ultrasound, uterus, real time with image documentation, limited one or more fetuses. 1 ?76312: NST/ monitoring ?21582: Limited 1 or more - CLARA, FHR, [...] fluid or rell. Patient scheduled twice weekly. [facility] specialist, Dr. Jenkins, reviewed findings prior [...] Pat. Name:Harlan FUCHS Date:01/25/2023 3:55pm Pat. NO: [id number] MD:PHILOMENA MOORE MD [facility]: :1995Age:27 ----- INDICATION ----- Pre-existing Type 1 Diabetes Mellitus Obesity, Other Maternal Care for Low Transverse Scar from Previous Delivery (Previous ) CODING ----- Diagnoses Z3A.33: Weeks of gestation O34.211: Maternal care for low transverse scarfrom previous delivery E66.8: Other obesity O24.013: Pre-existing type 1 diabetes mellitus, inpregnancy Procedures 98372: NST/ monitoring. 1 23688: Ultrasound, uterus, real time withimage documentation, limited one or more fetuses. 1 50079: NST/ monitoring 80947: Limited 1 or more - CLARA, FHR, position(modifier 59 for MBPP) HISTORY ----- OB History 5. Para 1 T1A3L1 MATERNAL ASSESSMENT ----- Physical Exam Weight 74 kg. BMI 30.99 kg/m??. Blood vgohekaj969/64 mmHg. Heart rate 83 bpm METHOD ----- EFM, Transabdominal ultrasound examination. View: Good view ----- Rodriguez . Number of fetuses: 1 DATING ----- Cycle:regular cycle, regular cycle Prior assessment by:Outside US GA by prior [id number] w + 6 d AARTI by prior [...] fluid or rell. Patient scheduled twice weekly. [facility] specialist, Dr. Jenkins, reviewed findings prior todischarge. [...]
--- OUTSIDE RECORDS SUMMARY | 2024-05-10 19:01 | XMS_ITS | Encounter Summary ---
Author Organization [facility] Address [address] [place] [address] Care Team Providers Care Primary Class Teacher Name Role Phone Unavailable Primary Care Provider Unavailabl e Reason for Visit * Auth/Cert (Routine) Specialty Diagnoses / Procedures Referred By Rachael t Referred To Contact Critical Care Medicine Diagnoses MFTI 2, Pos DKA abnormal VS Zbigniew Marino MD [address] [facility] [address] [place] [address] [facility] [address] [place] [address] Referral ID Status Reason Start Date Expiration Date Visits Re quested Visits Authorized [id number] 1 1 Encounter Details Date Type Department Care Team (Late st Contact Info) Description 02/07/2023 5:04 AM CDT Anesthesia Event [facility] Labor & [address] [place] [address] Salma Parra MD [address] [facility] [address] [place] [address] Anesthesia Record Procedure Summary Procedure Name Responsible Anesthesiologist Anesthesia Start Time Anesthesia Stop Time SECTION (Abdomen) Salma Prara MD 02/07/23 0504 02/07/23 0559 Events Date Time Event Comment 02/07/2023 0454 0503 In Room This event disp lays the In Room time documented in the Surgical Log. Deleting this event will not remove it from the log but will remove it from the Grid and Graph timeline. 0504 An Start 0504 AN Equip Check Anesthesia eq uipment and materials checked in accordance with local policy. 0504 An Start Data 0504 Pre-Induction Immediate pre- induction anesthetic assessment performed. Vital signs as noted on graphic. 0510 Neuraxial Block 0514 Anesthesia Ready 0524 Quick Note Block adequate right after prep. Marcia Parra MD 0524 Procedure Start This event d isplays the Procedure Start time documented in the Surgical Log. Deleting this event will not remove it from the log but will remove it from the Grid and Graph timeline. 0525 Patient Comfortable 0528 Uterine Incision This event displays the Uterine Incision time documented in the Surgical Log. Deleting this event will not remove it from the log but will remove it from the Grid and Graph timeline. 0533 Quick Note In OR for nette zhu. Pt stable, uterine tone adequate - Marcia Parra MD 0553 an stop data 0554 Procedure Stop This event di splays the Procedure Stop time documented in the Surgical Log. Deleting this event will not remove it from the log but will remove it from the Grid and Graph timeline. 0556 Out of Room This event disp lays the Out of Room time documented in the Surgical Log. Deleting this event will not remove it from the log but will remove it from the Grid and Graph timeline. 0559 An Stop 02/08/2023 0811 Follow-up Complete Meds Name Total citric acid-sodium citrate solution (BIC ITRA) solution 30 mL metoclopramide (REGLAN) 5 mg/mL injectio n 10 mg ondansetron (ZOFRAN) 4??mg/2 mL injectio n 4 mg famotidine (pf) (PEPCID) 20 mg/2 mL inje ction 20 mg BUPivacaine 0.75% in dextrose 8.25% PF ( MARCAINE SPINAL) injection solution 1.6 mL morphine PF (ASTRAMORPH,DURAMORPH) 1 mg/ mL injection 0.15 mg 150 mcg fentaNYL PF (SUBLIMAZE) 15 mcg/0.3 mL sy ringe 15 mcg 15 mcg oxytocin (PITOCIN) 10 Units in sodium ch loride 0.9% 9 mL solution 3 Units phenylephrine (DEVI-SYNEPHRIN E) 20 mg/250 mL in 0.9% sodium chloride infusion (INTRA-OP USE ONLY) 1,488 mcg ceFAZolin (ANCEF) 2,000 mg in dextrose ( iso-osmotic) 100 mL IVPB (PREMIX) 2,000 mg ketorolac (TORADOL) 15 mg/mL injection 1 5 mg oxytocin in sodium chloride 0.9 % (PITOC IN) 20 units in 1,000 mL infusion 200 mL lactated ringers infusion 100 mL * Agents No agents on file. * Blood No blood administrations on file. Lines, Drains, and Airways Type Details Placement Removal Peripheral IV Pre-Hospital Start: No; Orientation: Anterior, Left, Lower; Location: Arm; Gauge: 20 gauge; Needle Length: 1.88 in length; Insertion Attempts: 1; Patient Tolerance: tolerated well; Removal Indication: site symptomatic; Removal Interventions: direct pressure, catheter intact 02/03/23 1648 by Cindi Tinajero RN 02/08/23 2154 by Мария Argueta RN Indwelling Urethral Catheter 02/07/23; 0515; No; Indwelling double lumen catheter; 100% silicone; 16 Fr; inserted; 1; 10; 10; 02/07/23; 1728 02/07/23 0515 by Desiree Ojeda RN 02/07/23 1728 by Kitty Grimm RN Incision 02/07/23; 0545; surgical incision; other (comment); abdomen; 02/14/23; 0142 02/07/23 0545 by Desiree Ojeda RN 02/14/23 0142 by PROVIDER, DISCHARGE PATIENT documented in this encounter Social History Tobacco [...] of this encounter OR Notes * Anesthesia Post-Op Follow-up Note - Ricardo Bruce MD - 02/08/2023 8:11 AM CDT OB Anesthesia Post-Operative Assessment 02/08/2023 8:11 AM Karina Fuchs, status post Neuraxial anesthesia for Section. Patient evaluated via in person visit. Respiratory Function Resp: 18 (02/08/23539) SpO2: 97 % (02/07/23 1554) Able to breathe and cough freely Able to maintain O2 saturation greater than 92% on room air Cardiovascular Function Heart Rate: 75 bpm (02/07/23748) BP: 101/58 (02/08/23539) BP within 20% of preanesthetic level Mental Status, Neuro Fully awake Able to move 4 extremities voluntarily. No focal sensory deficits or weakness. Temperature Temp: 36.4 ??C (02/08/23539) Pain Pain Rating: Rest: 0 (02/08/23634) Presence of Pain: denies pain/discomfort (02/08/23634) Postoperative Hydration Intake/Output Summary (Last 24 hours) at 02/08/2023 0811 Last data filed at 02/08/2023 0420 Gross per 24 hour Intake 2105.11 ml Output 1275 ml Net 830.11 ml Nausea and Vomiting Signs/Symptoms: continuous nausea (01/31/23 0400) Able to drink fluids, no nausea, no vomiting Narrative no apparent anesthetic complications and tolerated procedure well Ricardo Bruce MD 02/08/2023 8:11 AM * Anesthesia Postprocedure Evaluation - Salma Parra MD - 02/07/2023 8:08 AM CDT Post Anesthesia Evaluation Vitals: Vitals Value Taken Time BP 117/75 02/07/2349 Temp 36.7 ??C 02/07/2357 Resp 18 02/07/23748 SpO2 100 % 02/07/23806 Pulse 76 02/07/23806 Heart Rate 70 bpm 02/07/23748 Vitals shown include unvalidated device data. Pain Rating: Pain Rating: Rest: 0 (02/07/23744) Pain Rating: Activity: 7 (02/06/23730) Presence of Pain: denies pain/discomfort (02/07/23744) Anesthesia Post Evaluation Patient location during evaluation: OB Patient participation: patient was able to participate in the post op evaluation Level of consciousness: 0 = alert, responsive, answers simple questions appropriately, able to perform simple tasks Pain management: adequate Multimodal analgesia pain management approach Airway patency: patent Nausea or Vomiting: none Cardiovascular status: regular rate and rhythm Respiratory status: no respiratory symptoms Hydration status: well hydrated No notable events documented. Salma Parra MD * Anesthesia Handoff - Luis M Leos CRNA - 02/07/2023 5:59 AM CDT Post-Anesthetic transfer of care report elements to appropriate post-anesthesia recovery environment completed in accordance with procedure. I completed my handoff to the receiving nurse during which we: 1. Identified the patient 2. Identified the responsible provider 3. Reviewed the pertinent medical history 4. Discussed the surgical course 5. Reviewed intra-op anesthesia management and issues during anesthesia 6. Set expectations for post-procedure period 7. Orders as necessary and appropriate for continuation of care are present in Epic. 8. Allowed opportunity for questions and acknowledgement of understanding. Vital Signs: BP: 118/69 (02/07/2023 5:57 AM) Pulse: 86 (02/07/2023 5:57 AM) Heart Rate: 93 bpm (02/06/2023 8:50 PM) Temp: 36.7 ??C (02/07/2023 5:57 AM) Resp: 18 (02/07/2023 5:57 AM) SpO2: 100 % (02/07/2023 5:57 AM) 5:59 AM Luis M Leos CRNA * Anesthesia Procedure Notes - Luis M Leos CRNA - 02/07/2023 5:11 AM CDT Associated Order(s): Spinal Block Spinal Block Patient location during procedure: OB Reason for block: primary anesthetic Staffing Performed: PURNIMA/KRIS Authorized by: Salma Parra MD Performed by: Luis M Leos CRNA Preanesthetic Checklist Completed: patient identified, IV checked, risks and benefits discussed, monitors and equipment checked, pre-op evaluation and timeout performed Spinal Hand hygiene performed prior to procedure Patient was prepped and draped in usual sterile fashion Time out performed Mask worn Patient position: Sitting Prep: ChloraPrep and site prepped and draped Local Anesthetic: Lidocaine 1% without epinephrine Patient monitoring: Continuous pulse oximetry, EKG and Non-invasive blood pressure Approach: Midline Location: L3-4 (Lumbar) Injection Technique: Single-shot [place] Identification: palpation technique Number of Attempts: 1 Spinal Needle Needle type: Pencil-tip Needle gauge: 25 G Needle length: 10 cmCSF visualized Assessment Events: easy and well tolerated Outcome: A full evaluation is pending * Anesthesia Preprocedure Evaluation - Salma Parra MD - 02/06/2023 9:50 PM CDT Relevant Problems CARDIOVASCULAR (+) Mild pre-eclampsia in third trimester ENDOCRINE (+) Type 1 diabetes mellitus affecting , antepartum (+) Type 1 diabetes mellitus with hyperglycemia (+) Type 1 diabetes mellitus without complication Anesthesia Evaluation Patient summary reviewed Airway Mallampati: I TM distance: >3 FB Neck ROM: full Dental - normal exam Pulmonary - negative ROS and normal exam breath sounds clear to auscultation (-) sleep apnea Cardiovascular - normal exam (+) hypertension (Pre-e without SF this hospitalization) Rhythm: regular Rate: normal Neuro/Psych - negative ROS GI/Hepatic/Renal - negative ROS Comments: Intractable N/V with possible gastroparesis Endo/Other (+) diabetes mellitus (h/o DKA. Had been on pump but not currently d/t insurance) type 1 using insulin Comments: 5, para 1, aborta 3, 35w4d Last anticoagulation 02/02 2111 - heparin 10,000 Hgb 9.4, platelets 266 Abdominal Anesthesia History No history of anesthetic complications. Anesthesia Plan ASA Final: 2 Spinal N/A induction NPO status > 8 hours Anesthetic plan and risks discussed with Patient and Spouse. Use of blood products: consented to blood products. Plan discussed with Puppy Trainer. Post-op analgesia: Spinal morphine. Spinal Plan for postoperative opioid use Smoking Compliance patient did not smoke on day of surgery assessment indications: indeterminate or abnormal status and previous para: Gestational age: 35w4d Dilation- Cervical: 2 (02/06/231437) Station: -3 (10/07/23 1438) Temp: 36.6 ??C (02/06/232049) Temp src: Oral (02/06/232049) Pertinent interval changes in the patient's history or review of systems: None Recommendations: GI prophylaxis Choice of Anesthesia/Anesthesia Plan: Delay until 0500 d/t patient eating solid food at 2100, Regional, and Routine Monitoring Postop pain management discussed yes History reviewed, patient seen and examined prior to induction of anesthesia. Neuraxial anesthesia and general anesthesia if circumstances warrant discussed, including risks, benefits, and alternatives. Questions solicited and answered. Patient understands and wishes to proceed. documented in this encounter Miscellaneous Notes * Addendum Note - Ricardo Bruce MD - 02/08/2023 8:11 AM CDT Addendum created 02/08/23810 by Ricardo Bruce MD Clinical Note Signed, Intraprocedure Event edited documented in this encounter Plan of Treatment Not on file documented as of this encounter Procedures Procedure Name Priority Date/Time Associated Diagnosis Comments ND ANESTHESIA BLOCK PB PLACEHOLDER CHARGE Routine 02/07/2023 5:11 AM CDT documented in this encounter Results * ND ANESTHESIA BLOCK PB PLACEHOLDER CHARGE (02/07/2023 5:11 AM CDT) Narrative Luis M Leos CRNA - 02/07/2023 5:11 AM CDT Luis M Leos CRNA ? 02/07/2023 ??5:11 AM Spinal Block Patient location during procedure: OB Reason for block: primary anesthetic Staffing Performed: INTEGRATION SOFTWARE ENGINEER/CAA Authorized by: Salma Parra MD ?? Performed by: Luis M Leos CRNA Preanesthetic Checklist Completed: patient identified, IV checked, risks and benefits discussed, monitors and equipment checked, pre-op evaluation and timeout performed Spinal Hand hygiene performed prior to procedure Patient was prepped and draped in usual sterile fashion Time out performed Mask worn Patient position: Sitting Prep: ChloraPrep and site prepped and draped Local Anesthetic: Lidocaine 1% without epinephrine Patient monitoring: Continuous pulse oximetry, EKG and Non-invasive blood pressure Approach: Midline Location: L3-4 (Lumbar) Injection Technique: Single-shot [place] Identification: palpation technique Number of Attempts: 1 Spinal Needle Needle type: Pencil-tip Needle gauge: 25 G Needle length: 10 cmCSF visualized Assessment Events: easy and well tolerated Outcome: A full evaluation is pending Salma Parra MD PROCEDURE/MINOR SURG ICAL ORDERABLES documented in this encounter Visit Diagnoses Not on filedocumented in this encounter Administered Medications Inactive Administered Medications - up to 3 most recent administrations Medication Order MAR Action Action Date Dose Rate Site BUPivacaine-dextrose (PF) (MARCAINE SPINAL, SENSORCAINE-MPF) injection IntraTHEcal, INTRA-PROCEDURE PRN, Starting on 02/07/23 at 0510, Until 02/07/23 at 0559, Routine, Anesthesia Intra-op Given 02/07/2023 5:10 AM CDT 1.6 mL ceFAZolin (ANCEF) 2,000 mg in dextrose (iso-osmotic) 100 mL IVPB (PREMIX) 2,000 mg, IV, PRE-PROCEDURE ONCE, 1 dose, Starting on 02/07/23 at 0447, Until 02/07/23 at 0514, Routine, Pre-op, Antibiotic Indication: Surgical prophylaxis Given 02/07/2023 5:04 AM CDT 2,000 mg famotidine PF (PEPCID) 20 mg/2 mL injection IV, INTRA-PROCEDURE PRN, Starting on 02/07/23 at 0451, Until 02/07/23 at 0559, Routine, Anesthesia Intra-op Given 02/07/2023 4:51 AM CDT 20 mg fentaNYL PF (SUBLIMAZE) 15 mcg/0.3 mL syringe 15 mcg 15 mcg, See Admin Instructions, INTRA-PROCEDURE ONCE, 1 dose, Starting on 02/07/23 at 0420, Until 02/07/23 at 0510, Routine Given 02/07/2023 5:10 AM CDT 15 mcg ketorolac (TORADOL) injection IV, INTRA-PROCEDURE PRN, Starting on 02/07/23 at 0544, Until 02/07/23 at 0559, Routine, Anesthesia Intra-op Given 02/07/2023 5:44 AM CDT 15 mg lactated ringers infusion IV, at 75 mL/hr, CONTINUOUS, Starting on 02/06/23 at 1445, Until 02/07/23 at 1444, Routine Rate Change 02/07/2023 5:26 AM CDT 900 mL /hr Continue from Pre-Op 02/07/2023 5:04 AM CDT 75 mL/hr New Bag 02/07/2023 2:35 AM CDT 75 mL/hr metoclopramide (REGLAN) 5 mg/mL injection IV, INTRA-PROCEDURE PRN, Starting on 02/07/23 at 0451, Until 02/07/23 at 0559, Routine, Anesthesia Intra-op Given 02/07/2023 4:51 AM CDT 10 mg morphine PF (ASTRAMORPH,DURAMORPH) 1 mg/mL injection 0.15 mg 0.15 mg (150 mcg), IntraTHEcal, INTRA-PROCEDURE ONCE, 1 dose, Starting on 02/07/23 at 0420, Until 02/07/23 at 0510, Routine Given 02/07/2023 5:10 AM CDT 150 mcg ondansetron (ZOFRAN) 4 mg/2 mL injection IV, INTRA-PROCEDURE PRN, Starting on 02/07/23 at 0452, Until 02/07/23 at 0559, Routine, Anesthesia Intra-op Given 02/07/2023 4:51 AM CDT 4 mg oxytocin (PITOCIN) 10 Units in sodium chloride 0.9% 9 mL solution IV, INTRA-PROCEDURE CONTINUOUS PRN, Starting on 02/07/23 at 0529, Until 02/07/23 at 0559, Routine, Anesthesia Intra-op New Bag 02/07/2023 5:29 AM CDT 3 Units oxytocin in sodium chloride 0.9 % (PITOCIN) 20 units in 1,000 mL infusion IV, at 125 mL/hr, CONTINUOUS, Starting on 02/07/23 at 0430, Until 02/13/23 at 1542, Routine New Bag 02/07/2023 5:29 AM CDT phenylephrine (DEVI-SYNEPHRINE) 20 mg/250 mL in 0.9% sodium chloride infusion (INTRA-OP USE ONLY) 0-0.1 mcg/kg/min ? 74.4 kg (0-5.58 mL/hr, rounded to 0-5.6 mL/hr), IV, INTRA-PROCEDURE CONTINUOUS PRN, Starting on 02/07/23 at 0420, Until 02/07/23 at 0836, Blood Pressure Rate Change 02/07/2023 5:43 AM CDT 0.3 mcg/kg/min 16.74 mL/hr Rate Change 02/07/2023 5:10 AM CDT 0.5 mcg/kg/min 27.9 mL/ hr New Bag 02/07/2023 5:06 AM CDT 0.5 mcg/kg/min 27.9 mL/h r sodium citrate-citric acid (BICITRA) oral solution Oral, INTRA-PROCEDURE PRN, Starting on 02/07/23 at 0451, Until 02/07/23 at 0559, Routine, Anesthesia Intra-op Given 02/07/2023 4:51 AM CDT 30 mL documented in this encounter
--- OUTSIDE RECORDS SUMMARY | 2024-05-10 19:01 | XMS_ITS | Encounter Summary ---
Author Organization [facility] Address [address] [place] [address] Care Team Providers Care Sql Developer Name Role Phone Unavailable Primary Care Provider Unavailabl e Reason for Referral * Echocardiography (Routine) - Closed Specialty Diagnoses / Procedures Referred By Rachael frey Referred To Contact Radiology Diagnoses Supervision of high risk in first trimester Obesity affecting in first trimester 12 weeks gestation of Type 1 diabetes mellitus with hyperglycemia Procedures ECHO 2D + COLOR FLOW VELOCITY SC DOP ECHOCARD COLOR FLOW VELOCITY MAPPING CHG ECHO CARDIOVASC W/WO M-MODE RECORDING CHG DOPPLER ECHO SPECTRAL DISPLAY COMPLETE Kelli Neal MD [address] [place] [address], [place] [address] [facility] Maternal And [facility] [address] [place] [address] Referral ID Status Reason Start Date Expiration Date Visits Re quested Visits Authorized [id number] Closed 08/31/2022 10/01/2023 1 1 Reason for Visit * Echocardiography (Routine) - Closed Specialty Diagnoses / Procedures Referred By Contac t Referred To Contact Radiology Diagnoses Supervision of high risk in first trimester Obesity affecting in first trimester 12 weeks gestation of Type 1 diabetes mellitus with hyperglycemia Procedures ECHO 2D + COLOR FLOW VELOCITY SC DOP ECHOCARD COLOR FLOW VELOCITY MAPPING CHG ECHO CARDIOVASC W/WO M-MODE RECORDING CHG DOPPLER ECHO SPECTRAL DISPLAY COMPLETE Kelli Neal MD [address] [place] [address] [facility] Maternal And Hc Ground Fl [address] [place] [address] Referral ID Status Reason Start Date Expiration Date Visits Re quested Visits Authorized [id number] Closed 08/31/2022 10/01/2023 1 1 Encounter Details Date Type Department Care Team (Late st Contact Info) Description 11/18/2022 12:36 PM CDT - 11/18/2022 11:59 PM CDT Hospital Encounter [facility] and Ground [address] [place] [address] Kelli Neal MD [address] [facility] [place] [address] Discharge Disposition: Home or Self [...] Sig Dispensed Refills Start Date End Date promethazine (PHENERGAN) 25 mg Suppository 10/09/2022 vit,calc76/iron/folic (PNV 29-1 ORAL) Take by mouth. metoclopramide HCl (REGLAN) 5 mg tabletIndications:Supe rvision of high risk in first trimester,Gastroparesi s due to DM Take 1 Tablet (5 mg) by mouth 4 times daily before meals and at bedtime. 120 Tablet 4 08/31/2022 insulin glargine (Lantus Solostar U-100 Insulin) 100 unit/mL pen syringe Inject 25 Units by subcutaneous injection. 02/06/2022 01/06/2023 insulin glargine (Basaglar KwikPen U-100 Insulin) 100 unit/mL pen syringe Inject 9 Units by subcutaneous injection. 03/23/2020 01/06/2023 insulin aspart U-100 (NovoLOG U-100 Insulin aspart) 100 unit/mL vialIndications:Type 1 diabetes mellitus with hyperglycemia Inject up to 100U per day via insulin pump 30 mL 8 09/18/2022 01/20/2023 documented as of this encounter Plan of Treatment Not on file documented as of this encounter Procedures Procedure Name Priority Date/Time Associated Diagnosis Comments ECHO 2D + COLOR FLOW VELOCITY Routine 11/18/2022 2:01 PM CDT Supervision of high risk in first trimester Obesity affecting in first trimester 12 weeks gestation of Type 1 diabetes mellitus with hyperglycemia documented in this encounter Results * ECHO 2D + COLOR FLOW VELOCITY (11/18/2022 2:01 PM CDT) Narrative 11/18/2022 2:01 PM CDT Order information only. ??Exam was auto-finalized. ?? Kelli Neal MD ORDERABLES documented in this encounter Visit Diagnoses Diagnosis Supervision of high risk in first trimester Unspecified high-risk Obesity affecting in first trimester 12 weeks gestation of state, incidental Type 1 diabetes mellitus with hyperglycemia Type I (juvenile type) diabetes mellitus without mention of complication, not stated as uncontrolled documented in this encounter
--- OUTSIDE RECORDS SUMMARY | 2024-05-10 19:01 | XMS_ITS | Encounter Summary ---
Author Organization [facility] Address [address] [place] [address] Care Team Providers Care Commercial Baking Teacher Name Role Phone Unavailable Primary Care Provider Unavailabl e Reason for Visit * Reason Comments Diabetes Encounter Details Date Type Department Care Team (Late st Contact Info) Description 01/06/2023 Chart Note [facility] Maternal and Medicine - [facility] [address] [facility] [address], [place] [address] Merari Jara NP [address] [facility] [place] [address] Diabetes Social History Tobacco Use [...] Progress Notes * Roxanna Rodrigues RN - 01/06/2023 8:43 AM CDT Images from the original note were not included. [facility] Maternal Medicine Diabetes Log Review Gestational age: 31w1d Type of DM: DM1 Current regimen: Humalog via Tandem insulin pump + Dexcom CGM Comments: Pump and CGM data reviewed in preparation for appt today with DAMIAN Calvert. Pt is currently in Control IQ and uses sleep mode overnights. Average sensor glucose for the past 7days is 133 mg/dL. Average TDD is 41.56 units (57% basal, 43% bolus). -Automatic boluses from pump (seen as droplet symbols on pump/CGM report) when wearing the CGM. Shehas not been wearing CGM for several days so she's been in manual mode. -Elevations noted after meals, bedtime and overnight. Recommendations: -Increase basal rates at 0000 and 1900 by 6-11% -Increase ICR at all meals -Encourage pt to reapply CGM to use Control IQ and use bolus calculator before every meal and snack -Send logs weekly and prn INSULIN PUMP Control IQ ON Control IQ ON Control IQ ON Control IQ ON Control IQ ON Control IQ OFF BASAL RATES TIME Current 10/08 11/19 12/02 12/09 01/06 [id number] 0.9 0.85 0.95 0.90 0.90 1.00 8358-1657 1.2 1.25 1.40 1.40 1.40 1.40 6370-6148 0.8 0.80 0.90 0.90 0.90 0.90 2405-2654 0.9 0.85 0.95 0.85 0.85 0.90 CARB RATIO TIME Current 10/08 11/19 12/02 12/09 01/06 4750-7163 8 8 6 5 5 4 7287-1804 8 8 6 5 5 4 4344-7721 8 8 6 5 5 4 5507-8573 8 8 6 6 6 5 SENSITIVITY TIME Current 10/08 11/19 12/09 01/06 4572-2771 30 45 30 30 30 TARGET TIME TARGET RANGE 3759-2617 110-110 Roxanna Rodrigues RN Certified Diabetes Care & Edu Specialist [facility] Maternal Medicine MFM Nurse Practitioner Attestation: Log reviewed. Agree with above recommendations. Changes made during her appt today. Merari Jara NP [facility] Maternal Medicine documented in this encounter Plan of Treatment Not on file documented as of this encounter Visit Diagnoses Not on filedocumented in this encounter
--- OUTSIDE RECORDS SUMMARY | 2024-05-10 19:01 | XMS_ITS | Encounter Summary ---
Author Organization [facility] Address [address] [place] [address] Care Team Providers Care Reconditioning Associate Name Role Phone Unavailable Primary Care Provider Unavailabl e Encounter Details Date Type Department Care Team (Late st Contact Info) Description 01/20/2023 Orders Only [facility] MATERNAL MEDICINE [place] [address] [place] [address] Kanchan Sanchez MD [address] [place] [address] Social History Tobacco Use Types Packs/Day [...] as of this encounter Progress Notes * Angelica Mcpherson RN - 01/20/2023 1:29 PM CDT Jodie asks for humalog Rx. Sent. documented in this encounter Plan of Treatment Not on file documented as of this encounter Visit Diagnoses Not on filedocumented in this encounter
--- OUTSIDE RECORDS SUMMARY | 2024-05-10 19:01 | XMS_ITS | Encounter Summary ---
Author Organization [facility] Address [address] [place] [address] Care Team Providers Care Auto Repair Technician Name Role Phone Unavailable Primary Care Provider Unavailabl e Reason for Visit * Reason Comments Diabetes Encounter Details Date Type Department Care Team (Late st Contact Info) Description 11/19/2022 Chart Note [facility] Maternal and Medicine - [facility] [address] [facility] [address] [place] [address] Delia Stoddard MD NO ADDRESS ON FILE Diabetes Social History Tobacco Use Types Packs/Day [...] Progress Notes * Roxanna Rodrigues RN - 11/19/2022 11:35 AM CDT Images from the original note were not included. [facility] Maternal Medicine Diabetes Log Review Gestational age: 24w2d Type of DM: DM1 Current regimen: Humalog via Tandem insulin pump + Dexcom CGM Comments: Pump and CGM data reviewed. Pt is currently in Control IQ and uses sleep mode overnights.Average daily glucose per CGM is 147. Current average total daily dose of insulin 38.46 units. Of this, 61% is basal and 39% is bolus insulin. Most recent pump adjustments were made on 10/08.. -Blood sugars globally elevated. Pt does not bolus regularly for meals and relies on auto corrections from pump often Recommendations: -Increase basal rates by 12-13% -Increase ICR -Adjust ISF based on TDD of 40 units using rule of 1500 -See pump changes below in bold -Send logs weekly and prn INSULIN PUMP Control IQ ON Control IQ ON Control IQ ON BASAL RATES TIME Current 10/08 11/19 5464-3753 0.9 0.85 0.95 4903-5405 1.2 1.25 1.40 4227-1214 0.8 0.80 0.90 1111-1493 0.9 0.85 0.95 CARB RATIO TIME Current 10/08 11/19 8543-6082 8 8 6 4484-0874 8 8 6 5419-2140 8 8 6 5742-2330 8 8 6 SENSITIVITY TIME Current 10/08-2359 30 45 30 TARGET TIME TARGET RANGE 5517-9999 110-110 Roxanna Rodrigues RN Certified Diabetes Care & Edu Specialist [facility] Maternal Medicine Physician Attestation: Log reviewed. Agree with above recommendations. No additional changes at this time. Delia Stoddard MD Maternal Medicine documented in this encounter Plan of Treatment Not on file documented as of this encounter Visit Diagnoses Not on filedocumented in this encounter
--- OUTSIDE RECORDS SUMMARY | 2024-05-10 19:01 | XMS_ITS | Encounter Summary ---
Author Organization [facility] Address [address] [facility] Attn: Epic Prelude ADT TOMI VARGAS [address] Care Team Providers Care Wad Lubricator Name Role Phone Unavailable Primary Care Provider Unavailabl e Encounter Details Date Type Department Care Team (Latest Contact Info) Description 11/18/2022 Travel Social History Tobacco Use Types Packs/Day [...]
--- OUTSIDE RECORDS SUMMARY | 2024-05-10 19:01 | XMS_ITS | Encounter Summary ---
Author Organization [facility] Address [address] [place] [address] Care Team Providers Care Ball Machine Operator Name Role Phone Unavailable Primary Care Provider Unavailabl e Reason for Visit * Reason Onset Date Comments Diabetes 10/07/2022 Encounter Details Date Type Department Care Team (Late st Contact Info) Description 10/07/2022 Telephone [facility] MATERNAL MEDICINE [place] [address] [place] [address] Zbigniew Marino MD [address] [place] [address] Diabetes Social History Tobacco Use Types Packs/Day [...] Telephone Encounter - Kathryn Reyes RN - 10/07/2022 9:20 AM CDT Called patient and received voicemail. Call was placed for DM compliance and permission/communications to review pump and CGM. Last review 09/08. Encouraged to call office back or respond to [employer] message with permission to review. Also encouraged to call back and schedule follow up appointment. Kathryn Reyes RN, BSN, [facility] Certified Diabetes Care & Edu Specialist [facility] Maternal Medicine [phone] documented in this encounter Plan of Treatment Not on file documented as of this encounter Visit Diagnoses Not on filedocumented in this encounter
--- OUTSIDE RECORDS SUMMARY | 2024-05-10 19:01 | XMS_ITS | Encounter Summary ---
Author Organization [facility] Address [address] [place] [address] Care Team Providers Care Balloon Pilot Name Role Phone Unavailable Primary Care Provider Unavailabl e Reason for Referral * Radiology Services (Routine) - Closed Specialty Diagnoses / Procedures Referred By Rachael frey Referred To Contact Radiology Diagnoses Pre-existing type 1 diabetes mellitus in in third trimester Procedures US OB FOLLOW UP PER FETUS [place] Merari Jara NP [address] [facility] [place] [address] [facility] Maternal And Ground Fl [address] [place] [address] Referral ID Status Reason Start Date Expiration Date Visits Re quested Visits Authorized [id number] Closed 01/06/2023 02/06/2024 1 1 Reason for Visit * Reason Comments Follow Up Encounter Details Date Type Department Care Team (Latest Contact Info) Description 01/06/2023 1:00 PM CDT visit [facility] Maternal and Medicine - [facility] [address] [facility] [place] [address] Merari Jara NP [address] [address] Supervision of high risk in third trimester; Pre-existing type 1 diabetes mellitus in in third trimester; Previous section Social History Tobacco Use Types Packs/Day [...] Sign Reading Time Taken Comments Blood Pressure 112/70 01/06/2023 1:41 PM CDT Pulse 98 01/06/2023 1:41 PM CDT Temperature - - Respiratory Rate - - Oxygen Saturation 99% 01/06/2023 1:41 PM CDT Inhaled Oxygen Concentration - - Weight 74.4 kg (164 lb) 01/06/2023 1:41 PM CDT Height - - Body Mass Index 30 08/31/2022 8:52 AM CDT documented in this encounter Progress Notes * Merari Jara, TAMIKO - 01/06/2023 2:00 PM CDT [facility] Maternal Medicine Follow-Up Consultation Karina Fuchs [id number] 27 y.o. Chief Complaint: complicated by: T1DM, improving control High risk at 31w1d RPL Previous Primary OB: Dr. Velazquez HPI: Karina Fuchs is a 27 y.o. at 31w1d seen today in follow up due to the above concerns. Initial MFM consult on 08/[address] Neal (see note for full history details) States she attempted to seek out an BENCH HAND MACHINE at [facility], but they do not take her insurance and she would now like to deliver at [facility]. Her GI appointment at [facility] was also canceled due to her insurance T1DM: Karina has had improved control this Her A1c - scanned into Media is most recently 5.6%. Her 24 hour U protein was 407. Her Dexcom and values were reviewed today. (See separate CDCES RN note for details). Average blood sugar over the last 7 days is 133. Increased values after meals, at bedtime and overnight. Denies any hospitalizations since her last MFM visit on 12/09 Gastroparesis- has had approximately 5 pound weight gain since her last visit States she is feeling better since she started on a scopolamine patch. States she vomited only twice over the weekend. Had a smoothie and Ensure today. is tolerating small meals Having daily BM Denies abdominal pain. : She denies vaginal bleeding, contractions and leakage of fluid. She denies blurry vision, RUQ/epigastric pain. Reports occasional mild headaches, none at the present time She reports adequate movement. Review of Systems ROS:As Per HPI. Denies nausea, vomiting, chest pain, shortness of breath, headache, or vision symptoms. Denies unintended changes in weight. Denies abdominal pain or changes in bowel or bladder habits. All other systems negative as they relate to the chief complaint. Physical Exam BP 112/70 (BP Location: Right arm, Patient Position (BP): Sitting) Pulse 98 Wt 74.4 kg (164 lb) SpO2 99% BMI 30.00 kg/m?? General: appearance: alert, in no distress Skin: warm and dry, intact. Eyes: sclera non icteric, normal ocular movements. Lungs: normal respiratory effort, negative for coughing or wheezing Heart: normal rate and normal peripheral perfusion Abdomen: Non-distended. Gravid Extremities: No cyanosis. 1+LE edema bilaterally, states has been present for most of her Psychiatric: Appropriate mood and affect FHR per DOPPLER (see flowsheet) Obstetric History OB History Para Term AB Living 5 1 1 3 1 SAB IAB Ectopic Multiple Live Births 3 # Outcome Date GA Lbr Chuck/2nd Weight Sex Delivery Anes PTL Lv 5 Current 4 2020 6w0d 3 SAB 2019 6w0d 2 2018 6w0d 1 Term 2017 37w0d 3147 g (6 lb 15 oz) F CS-LTranv Comments: DKA admits Medications Current Outpatient Medications Medication Sig Dispense Refill Insulin Syringe-Needle U-100 0.3 mL 31 gauge x 5/16 Syringe 1 Syringe. blood sugar diagnostic Strip 1 Strip. scopolamine (Transderm-Scop) 1 mg/72 hr patch Apply 1 Patch to skin as directed see administration instructions for 10 doses. 10 Patch 3 cholecalciferol, Vitamin D3, 50 mcg (2,000 unit) Tablet Take 1 Tablet (2,000 Units) by mouth daily.3 Acetone, Urine, Test (Ketostix) Strip Use as directed. Notify MD for moderate to large ketones. 100Strip 1 insulin aspart U-100 (NovoLOG U-100 Insulin aspart) [...] meals and at bedtime. 120 Tablet 4 promethazine (PHENERGAN) 25 mg Suppository insulin lispro (HumaLOG) 100 unit/mL vial Inject 8 Units by subcutaneous injection. [DISCONTINUED] insulin glargine (Lantus Solostar U-100 Insulin) 100 unit/mL pen syringe Inject 25 Units by subcutaneous injection. [DISCONTINUED] insulin glargine (Basaglar KwikPen U-100 Insulin) 100 unit/mL pen syringe Inject 9 Units by subcutaneous injection. No current facility-administered medications for this visit. TOBACCO COUNSELING She is not a tobacco/nicotine user. Assessment and Plan 27 y.o. at 31w1d with complicated by: Type 1DM 1. Concerns Suspected anomalies: None, Echo normal Estimated weight: 11/18 24w 1d.Estimated weight is 770 g (82%ile) with abdominal circumference at the 80%ile. Recommended follow up sonograms: -Growth sonograms at 4 week intervals in the 3rd trimester (ordered today for [place]) Recommended testing: -Twice weekly testing starting at 32 weeks (has scheduled at [facility]) Delivery planning: At this time delivery goal is for 39 weeks. -Patient now desires to deliver at [facility]--> labs scanned into media did not see Type and screen was previously ordered (RI/HIV NR/ RPR NR/ HC and HB negative/ UDS negative, PAP negative 08/23, H/H and Plts 354) 2. T1DM, A1c most recently 5.6% Assessment: Improving control, - mild baseline proteinuria with 407mg/24 hours Plan: -Your patient was previously counseled about the maternal risks of diabetes in including but not limited to labor dystocia, increased risk of c- section, infection, preeclampsia and abruption -Basal and insulin to carb ratio values adjusted today, see CDE note - Continue close monitoring with our office, weekly glucose logs/Dexcom review - Sonographic monitoring above -Continue aspirin 81 mg daily for preeclampsia risk reduction; reviewed signs and symptoms of preeclampsia today 3. Probable gastroparesis Assessment: Improving with scopolamine patch Plan: -Continue scopolamine patch use -Small meals -Alert our office if having increased nausea vomiting -Check urine ketones if N/V, and if present, needs to present to the hospital to rule out DKA Disposition - Attempting to Transfer care to [facility] - Follow up with MFM in 3-4 weeks Thank you for the opportunity to participate in the care of this patient. A copy of this note was sent to the referring physician. Complexity of medical decision making: Moderate due to with the additional complications mentioned above. Merari Jara NP [facility] Maternal Medicine On the day of the visit, I spent 35 minutes providing care to this patient including Preparing to see the patient, Obtaining and/or reviewing separately obtained history, Performing a medically appropriate examination and/or evaluation, Counseling and educating the patient/family/caregiver, Ordering medications, tests or procedures, Documenting clinical information in the medical record, Referring and communication with other health home health care provider (not separately reported), and Independently interpreting results and communicating results to the patient/family/caregiver (not separately reported). documented in this encounter Plan of Treatment Not on file documented as of this encounter Results * US OB FOLLOW UP PER FETUS (01/21/2023 3:55 PM CDT) Anatomical Region Laterality Modality Pelvis Ultrasound 01/21/2023 3:35 PM CDT Narrative 01/21/2023 3:59 PM CDT STL FOLLOW UP ----- Pat. Name: KARINA FUCHS Study Date: 01/21/2023 3:35pm Pat. NO: [id number] Referring ??MD: PHILOMENA VELAZQUEZ MD Site: [facility] [employer] Loan Processing Clerk: Magdalena Wade RDMS : 1995 Age: 27 [...] Pre-existing type 1 diabetes mellitus, in Procedures ?04392: Ultrasound, uterus, real time with image documentation, [...] lb 11 ? oz EFW by ?Hadlock ([id number]) Head / Face / Neck Biometry: Cephalic [...] and date of were verified by the die polisher prior to the exam IMPRESSION ----- Viable [...] Pat. Name:Harlan FUCHS Date:01/21/2023 3:35pm Pat. NO: [id number] MD:PHILOMENA VELAZQUEZ [facility]Magdalena Wade RDMS :1995Age:27 ----- INDICATION ----- [...] Pre-existing type 1 diabetes mellitus, inpregnancy Procedures 33967: Ultrasound, uterus, real time withimage documentation, follow up, transabdominal approach per fetus HISTORY ----- OB History 5. Para 1 T1A3L1 MATERNAL ASSESSMENT ----- Physical Exam Weight 79 kg. BMI 33.07 kg/m?? METHOD ----- Transabdominal ultrasound examination ----- Rodriguez . Number of fetuses: 1 DATING ----- Cycle:regular cycle GA by prior [id number] w + 2 d AARTI by prior [...] 5 lb 11 oz EFW by Hadlock ([id number]) Head / Face / Neck Biometry: Cephalic [...] and date of were verified by the die polisher prior tothe exam IMPRESSION ----- Viable at [...] Diagnoses Diagnosis Supervision of high risk in third trimester Unspecified high-risk Pre-existing type 1 diabetes mellitus in in third trimester Diabetes mellitus, antepartum Previous section Other postprocedural status Pre-existing type 1 diabetes mellitus in in third trimester Diabetes mellitus, antepartum documented in this encounter
--- OUTSIDE RECORDS SUMMARY | 2024-05-10 19:01 | XMS_ITS | Encounter Summary ---
Author Organization [facility] Address 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 Name Role Phone Unavailable Primary Care Provider Unavailabl e Reason for Referral * Radiology Services (Routine) - Closed Specialty Diagnoses / Procedures Referred By Rachael frey Referred To Contact Radiology Diagnoses Supervision of high risk in first trimester Obesity affecting in first trimester 12 weeks gestation of Type 1 diabetes mellitus with hyperglycemia Procedures US OB DETAIL SINGLE GEST Kelli Neal MD [address] [place] [address] [facility] [address] [place] [address] Referral ID Status Reason Start Date Expiration Date Visits Re quested Visits Authorized [id number] Closed 08/31/2022 10/01/2023 1 1 * Echocardiography (Routine) - Closed Specialty Diagnoses / Procedures Referred By Contac t Referred To Contact Radiology Diagnoses Supervision of high risk in first trimester Obesity affecting in first trimester 12 weeks gestation of Type 1 diabetes mellitus with hyperglycemia Procedures ECHO 2D + COLOR FLOW VELOCITY WI DOP ECHOCARD COLOR FLOW VELOCITY MAPPING CHG ECHO CARDIOVASC W/WO M-MODE RECORDING CHG DOPPLER ECHO SPECTRAL DISPLAY COMPLETE Kelli Neal MD [address] [place] [address] [facility] [address] [place] [address] Referral ID Status Reason Start Date Expiration Date Visits Re quested Visits Authorized [id number] Closed 08/31/2022 10/01/2023 1 1 * Radiology Services (Routine) - Closed Specialty Diagnoses / Procedures Referred By Rachael frey Referred To Contact Radiology Diagnoses Supervision of high risk in first trimester Obesity affecting in first trimester 12 weeks gestation of Type 1 diabetes mellitus with hyperglycemia Procedures US OB 14+ WKS SINGLE GEST Kelli De Leon MD [address] [facility] [place] [address] [facility] [place] [address] [facility] [place] [address] Referral ID Status Reason Start Date Expiration Date Visits Re quested Visits Authorized [id number] Closed 08/31/2022 10/01/2023 1 1 Reason for Visit * Reason Comments Consult * Eval and Treat (31-60 Days) - Closed Specialty Diagnoses / Procedures Referred By Rachael frey Referred To Contact Perinatology Diagnoses Type 1 diabetes mellitus Mireya Moore MD [address] [address] [facility] [place] [facility] [address] [facility] [place] [address] Referral ID Status Reason Start Date Expiration Date Visits Requested Visits Authorized [id number] Closed Performing Department to Schedule 07/16/2022 08/16/2023 1 1 Encounter Details Date Type Department Care Team (Late st Contact Info) Description 08/31/2022 9:00 AM CDT Initial [facility] [place] [address] [place] [address] Kelli Neal MD [address] [facility] [address] [place] [address] Supervision of high risk in first trimester (Primary Dx); Obesity affecting in first trimester; 12 weeks gestation of ; Type 1 diabetes mellitus with hyperglycemia; Gastroparesis due to DM Social History Tobacco Use Types Packs/Day Years Used Date Smoking Tobacco: Never Tobacco Cessation:Counseling Given: Not Answered [...] Sign Reading Time Taken Comments Blood Pressure 116/68 08/31/2022 8:52 AM CDT Pulse 110 08/31/2022 8:52 AM CDT Temperature - - Respiratory Rate - - Oxygen Saturation 99% 08/31/2022 8:52 AM CDT Inhaled Oxygen Concentration - - Weight 78.5 kg (173 lb) 08/31/2022 8:52 AM CDT Height 157.5 cm (5' 2 ) 08/31/2022 8:52 AM CDT Body Mass Index 31.64 08/31/2022 8:52 AM CDT documented in this encounter Progress Notes * Kelli Neal MD - 08/31/2022 9:19 AM CDT [facility] Maternal Medicine Consultation Karina Menjivar [id number] 27 y.o. Chief Complaint: complicated by: T1DM, suboptimal control, gastroparesis High risk 12w6d RPL Previous Consult requested by: Dr. Moore HPI: Karina Menjivar is a 27 y.o. at 12w6d seen today in consultation due to the above concerns. Karina is managed for her T1DM by Dr. Sanches in [place], at [facility]. She has had DM since age 13. DKA a bunch . Last Dka was in the fall. Previous - she was in and out of the hospital with multiple DKA admissions. She is currently in [employer] - T slim and dexcom. She has not had DKA this so far. She did have an ED visit for N/V though. She takes reglan for nausea and has had a work up for gastroparesis which was negative but symptomsare concerning for gastroparesis She did no show the crystal finisher appointment this just due to issues at work. 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 She works 5 days a week daytimes. When she gets home she walks her 2 dogs. 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 In 2017, she had a complicated (DKA) and delivered at term, she did have a due to arrest of dilation vs descent? She denies vaginal bleeding, contractions and leakage of fluid. Her past medical, surgical, family, and social history was reviewed and was otherwise unremarkable. Review of Systems ROS:As Per HPI. Denies nausea, vomiting, chest pain, shortness of breath, headache, or vision symptoms. Denies unintended changes in weight. Denies abdominal pain or changes in bowel or bladder habits. All other systems negative as they relate to the chief complaint. Physical Exam BP 116/68 Pulse (!) 110 Ht 5' 2 (1.575 m) Wt 78.5 kg (173 lb) SpO2 99% BMI 31.64 kg/m?? General: appearance: alert, in no distress Skin: warm and dry, intact. Eyes: sclera non icteric, normal ocular movements. Lungs: normal respiratory effort, negative for coughing or wheezing Heart: normal rate and normal peripheral perfusion Abdomen: Soft, non-tender, non-distended. Extremities: No cyanosis. No edema beyond what is expected at this gestation. Psychiatric: Appropriate mood and affect OB History Para Term AB Living 5 1 1 3 1 SAB IAB Ectopic Multiple Live Births 3 # Outcome Date GA Lbr Chuck/2nd Weight Sex Delivery Anes PTL Lv 5 Current 4 2020 6w0d 3 2019 6w0d 2 SAB 2018 6w0d 1 Term 2017 37w0d 3147 g (6 lb 15 oz) F CS-LTranv Comments: DKA admits Past Medical History: Diagnosis Date DM (diabetes mellitus) Family History Denies family history of chromosome problems or defects. Denies parents, brothers or sisters with bleeding disorders or history of blood clots No family history on file. Past Surgical History: Procedure Laterality Date HX SECTION 2016 HX DILATION AND CURETTAGE 2018 2019 HX TONSILLECTOMY Labs Reviewed No results found for: WBC, MANUALWBC, HGB, HGBPOC, HCT, HCTPOC, PLT, MCV No results found for: NA, K, CL, CO2, CA, BUN, CREAT, GLUCOSE, TOTALPROTEIN, ALBUMIN, BILITOTAL, ALKPHOS, AST, ALT, ANIONGAP, BCRATIO No results found for: RUBELLAIGG, RUBELLAIGM, RUBELLAIN No results found for: HIV1X2, [id number], HIVAB, HIV2AB, HIV1WB, HIV2WB No results found for: HEPAIGGM, HEPAIGG, HEPAIGM, HEPATITIS, HEPBSIGM, HEPBSAG, HEPBSAB, HEPBEAB, HEPBEAG, HEPBDNAQN, HEPCAB, HEPATITISC No results found for: ABORH, ABOGROUP, FETALABORH, RHTYPE No results found for: PROTEINUR No results found for: CREAT, CREATCLEAR, [id number], GFR Imaging No results found for this or any previous visit. Medications Current Outpatient Medications Medication Sig Dispense Refill metoclopramide HCl (REGLAN) 5 mg tablet Take 5 mg by mouth 4 times daily before meals and at bedtime. vit,calc76/iron/folic (PNV 29-1 ORAL) Take by mouth. aspirin (ECOTRIN EC) 81 mg Tablet, Delayed Release (E.C.) Take 81 mg by mouth daily. insulin lispro (HumaLOG) 100 unit/mL vial Inject 100 Units by subcutaneous injection daily. No current facility-administered medications for this visit. Checklists Diabetes Checklist -Diagnosed at 13 years old -Managed outside by Dr. Sanches -Pre- regimen T slim and dexcom automode -Last DKA Fall -Hypoglycemic awareness at 60s -Last dilated eye exam: >5 years ago -Last EKG: Probably during DKA admit -Evidence of end organ damage: None suspected -TSH PENDING -Hgb A1c: 7/0% in 05/2022 -Baseline PEC labs: PENDING -Taking LDA Plans to Summary of Consultation T1DM We reviewed today that the incidence of complications in pregnancies with diabetes is inversely proportional to glucose control with minimal complications if glucose control is optimal. It was initially first proposed that the exaggerated response to insulin is provoked by hyperglycemiathat results from maternal hyperglycemia. Poorly controlled DM is associated with increased risks of the following: first-trimester miscarriage; congenital malformations (most common malformations are cardiac defects and [employer] anomalies, especially neural tube defects; most pathognomonic are sacral agenesis/caudal regression); intrauterine demise; (both iatrogenic and spontaneous); preeclampsia; ketoacidosis; polyhydramnios; macrosomia (increased insulin acts as growth factor; the degree of macrosomia is correlated with fasting and postprandial blood glucose values outside of the suggested parameters); operative delivery (both vaginal and ) and injury (i ncluding brachial plexus) (both related to macrosomia); delayed lung maturity; respiratory distresssyndrome; jaundice (because of polycythemia), hypoglycemia, hypocalcemia and polycythemia in the , all related to elevated glucose levels and consequent hyperinsulinemia antenatally; and mortality. Long-term follow-up has shown higher rates of obesity, type II DM, and lower IQ in children of mothers with poorly controlled DM in . Optimizing health outcomes can be achieved by a combination of diet, exercise, glucose monitoring, and insulin therapy. Women with type I DM and glucose levels of >200 mg/dL should check their urine ketones and immediately alert their health care provider if positive. Diet: Nutritional requirements are adjusted on the basis of maternal body mass index (BMI); women with normal BMI require 30 to 35 kcal/kg/day. Individuals <90% of their ideal body weight (IBW) may increase this by an additional 5 kcal/kg/day, and those >120% of their IBW should decrease thisvalue to 24 kcal/kg/day. The content should be distributed as 45% complex, high-fiber carbohydrates, 20% protein, and 35% primarily unsaturated fats. The calories are distributed over three meals andthree snacks with breakfast receiving the smallest allotment at 15%, and the other two meals receiving near equal distribution. Saccharin, aspartame, acesulfame-K, maltodextin, and sucralose may be used safely in moderate amounts. Recommend Testing: Glycated hemoglobin concentration every 4-6 weeks. Additionally, recommend obtaining an initial baseline set of labs including creatinine, TSH, free T4, random protein: creatinine ratio. Also recommend obtaining and/or referring patient for a electrocardiogram, dilated and compreh ensive eye examination by an rn home care, and first trimester ultrasound examination if dating is uncertain. HgA1C: A glycosylated hemoglobin A1c <6% is normal. Hemoglobin A1c of 6% reflects a mean glucoselevel of 120 mg/dL; each 1% increment in hemoglobin A1c is equal to a change in mean glucose level of 30 mg/dL. There is evidence that blood sugars (and hemoglobin A1c measurements) should be maintained within normal limits throughout gestation and not just in a particular trimester to decrease therisk of poor outcomes. Blood Glucose monitoring: Frequent home glucose monitoring has been associated with enhanced glucose control and shorter interval to achieve target blood sugars. Capillary blood glucose (???finger stick?? ) measurements using a glucometer should be obtained at least four times a day--fasting and one hour postprandial. Insulin: Multiple-dose insulin (MDI) injection therapy is the mainstay in the management of pregestational diabetes. All subcutaneous insulin types have been approved during . Subcutaneous insulin pump therapy (continuous subcutaneous insulin infusion therapy [CSII]) may be continued in women already compliant with this mode of therapy. In non adults, women compliant with insulinpumps have increased satisfaction, decreased episodes of severe hypoglycemia, and better control ofhyperglycemia. There is currently insufficient evidence to recommend CSII versus MDI in in women not already on pumps. Carbohydrate counting and the use of an zwlercs-bq-ctekuyeueqns ratio of 1 unit of insulin for every 15 g of carbohydrate in early gestation can allow for greater flexibility in eating but has not been studied in a trial. As advances with its concomitant increased insulin resistance, an increased ratio is required with 1 unit covering a lower amount of carbohydrates, for example, 1 unit/3 g of carbohydrate. Diabetic Ketoacidosis: occurs in 5% to 10% of women with pregestational type I diabetes. It is defined by elevated glucose (usually >250 mg/dL), positive serum ketones, and acidosis. Riskfactors include type I diabetes, new onset diabetes, infections (e.g., urinary or respiratory tractinfections), poor compliance, insulin pump failure, and treatment with beta-mimetics or steroids. Symptoms include abdominal pain, nausea, vomiting, and altered sensorium. Laboratory tests should include an arterial blood gas (pH <7.3), electrolytes (serum bicarbonate <15 mEq/L and elevated anion gap), serum and urinary ketones (elevated). Aggressive hydration, intravenous insulin, and correction of the underlying etiology are the most important interventions, with close electrolyte (especially glucose and potassium) monitoring. mortality may be up to 10%, even with aggressive management. surveillance: surveillance is required to determine whether congenital anomalies are present and to minimize mortality. Because of the increased risk of defects, particularly cardiac and neural tube defects, patients should be offered alpha-fetoprotein screening at 16 to 18 weeks gestation, targeted ultrasonography at 18 to 20 weeks, and echocardiography at 20 to 22 weeks. Serial ultrasounds in the third trimester to evaluate growth and frequent visits to review glucose control are also advocated. The use of surveillance with nonstress test (NST) and/or biophysical profile is recommended by expert opinion. For women with good glycemic control, antepartum testing can start at 32 weeks with once or twice weekly NSTs, increased to twice weekly at 36 weeks, and continued until delivery. For women with poor glycemic control, antepartum testing may need to begin earlier. Delivery: Timing of delivery in women with pregestational DM in good control is usually at about 390/7-39 6/7 weeks (unless maternal or factors dictate earlier intervention) as mortality increases after 40 weeks. In general, indicated delivery before 39 weeks, if truly indicated, should not require assessment of maturity. Mode of delivery is generally vaginal. is indicated if estimated weight is >=4500g. Intrapartum glucose management: The usual subcutaneous long-acting (e.g., glargine) or intermediate-acting insulin (e.g., NPH) is given at bedtime the evening before delivery, and the usual subcutaneous morning insulin is withheld on the day of delivery. Intrapartum management is targeted to maintain maternal glucose levels between 70 and 110 mg/dL. Often the insulin requirement is decreased because of the energy requirements of labor. Intravenous insulin, dextrose solution, frequent (usually every one hour) glucose monitoring, and evaluation of urinary ketones are required to prevent a catabolic state and the development of ketoacidosis. Once active labor begins or glucose is <70 mg/dL,IV 5% dextrose at 125 cc/hour can be started. Once glucose level is >=100 mg/dL, short-acting (e.g., lispro or regular) IV insulin should be started. IV 5% dextrose and insulin infusions should beseparate and often should occur at the same time to prevent ketonuria. Adjustments to the basal infusion rates are based on hourly finger stick blood sugars while in labor. The use of the insulin pump, maintaining the basal rate, rather than using an IV insulin infusion, is an accepted alternative.With delivery, use of a single injection of long-acting insulin, an IV insulin infusion, or subcutaneous pump at a low basal rate are equal alternatives until oral intake is assured and morestandard dosing can be reinstituted. Insulin requirements are diminished and are generally half of the antepartum requirement. : Usual diabetic diet should be restarted after delivery with one half of the predeliverydose or the full prepregnancy dose (if this achieved euglycemia) restarted. If food intake cannot be restarted soon, then glucose levels of >140 mg/dL should be treated with proper coverage. Breast-feeding has increased maternal caloric demands and an additional 500 kcal/day needs to be added tothe diet to avoid hypoglycemia. All forms of contraception are available to diabetics, providing they have no contraindications, such as hypertension or vascular disease TOBACCO COUNSELING She is not a tobacco user. Assessment and Plan 27 y.o. at 12w6d with complicated by Suboptimally controlled T1DM Disposition - Continue care and delivery with Dr. Moore - Follow up with M in 4 weeks 1. Concerns Suspected anomalies: PENDING Estimated weight: PENDING Recommended follow up sonograms: - 16 week basic ultrasound - anatomic survey at 20 weeks - echocardiogram at 24 weeks -Growth sonograms at 4 week intervals in the 3rd trimester Recommended testing: -Twice weekly testing starting at 32 weeks Delivery planning -TBD 2. T1DM Assessment: Suboptimal control Plan: -Your patient was counseled about the maternal risks of diabetes in including but not limited to labor dystocia, increased risk of , infection, preeclampsia and abruption -She was also counseled about the risks of diabetes in including but not limited tocongenital anomalies (with heart being the most common), IUGR and conversly macrosomia, shoulder dystocia hypoglycemia, and intrauterine . -She was counseled that the most optimal way to modify these risks is with good glucose control -Continued routine obstetrical care. -Serial HgA1C every 4-6 weeks. -Urine ketone measurements during periods of illness or when any blood glucose value is greater than 200. -Recommend urine protein dipstick evaluations at each office visit. -Recommend serum creatinine measurement in women with diabetes complicated by nephropathy. -Recommend baseline TSH measurement if not done so already. -Recommend baseline pre-eclampsia labs (platelets, creatinine, AST/ALT and either a 24 hour urine for protein or random fumjsdr-mn-nxqppmpn clearance ratio) -Baseline dilated and comprehensive eye examination and then as necessary per retinal specialist. -Recommend fingerstick checks at least 4 times daily (Fasting and 1 hour postprandial), also recommend occassionally checking 3am values if fasting hyperglycemia is noted and checking pre-prandial ifthe patient is carb-counting -Her fastings should be <90 and her 1 hour postprandial should be <140 -Instruction reviewed with your patient regarding WEEKLY submission of blood glucose log. -Although adjustments are necessary at no time should this patient be without a basal dose of insulin -Recommend detailed anatomic (level II ultrasound) survey at 18-20 weeks. -Recommend screening echocardiogram at 22-24 weeks. -Recommend serial growth ultrasound surveillance at 4 week intervals starting at 24-28 weeks. -Recommend surveillance at 32 weeks, or sooner depending of level of glycemic control.. -In situations in which betamethasone need to be administered to accelerate lung maturation between 23 and 34 weeks of gestation, we suggest monitoring capillary blood glucose concentrations hourly beginning 12 hours after the initial dose and continuing for at least 24 hours after the second dose, and then several times per day thereafter. We suggest considering administration ofinsulin intravenously as needed to maintain euglycemia - If the expected weight is over 4500 grams, we suggest delivery to avoid possible trauma from shoulder dystocia. -We suggest induction of labor at 39 weeks of gestation in women with favorable cervices and fetuses less than 4500 g. The presence of high risk factors, such as poor glucose control, worsening nephropathy or retinopathy, preeclampsia, or restricted growth may warrant consideration of earlierdelivery. Awaiting the spontaneous onset of labor is reasonable if there is good glycemic control and no or additional maternal complications. If induction of an unfavorable cervix is planned, use of cervical ripening agents is safe and effective. -We suggest avoiding induction because of suspected macrosomia. This intervention has not been proven to improve maternal or outcomes, and may increase the delivery rate. 3. Probable gastroparesis Assessment: Discussed dietary changes Plan: - Reglan with meals - RD consultation - this can become a major issue in the late 3rd T and we will assess her need for dietary supplementation at that time Thank you for the opportunity to participate [...] patient, Obtaining and/or reviewing separately obtained history, Counseling and educating the patient/family/caregiver, Ordering medications, tests or procedures, Documenting clinical information in the medical record, and Referring and communication with other health memory care program resident (not separately reported). Kelli Neal MD [facility] Maternal Medicine documented in this encounter Miscellaneous Notes * Addendum Note - Kell Mcpherson RN - 08/31/2022 10:49 AM CDTAddended by: KELL MCPHERSON on: 08/31/2022 10:49 AM Modules accepted: Orders documented in this encounter Plan of Treatment Not on file documented as of this encounter Results * ECHO 2D + COLOR FLOW VELOCITY (11/18/2022 2:01 PM CDT) Narrative 11/18/2022 2:01 PM CDT Order information only. ??Exam was auto-finalized. ?? Kelli Neal MD US ORDERABLES * US OB DETAIL SINGLE GEST (10/26/2022 2:07 PM CDT) Anatomical Region Laterality Modality Pelvis Ultrasound 10/26/2022 1:15 PM CDT Narrative 10/26/2022 2:34 PM CDT STL COMP ----- Pat. Name: KARINA MENJIVAR Study Date: 10/26/2022 1:15pm Pat. NO: [id number] Referring ??MD: MIREYA MOORE MD Site: [place] Clinical Pharmacy Manager: Magdalena Wade RDMS : 1995 Age: 27 ----- INDICATION ----- Pre-existing Type 1 Diabetes Mellitus Obesity, Other Maternal Care for Low Transverse Scar from ? x 1 Previous Delivery (Previous ) CODING ----- Diagnoses ? Z3A.20: Weeks of gestation ?O34.211: Maternal care for low transverse scar from previous delivery ?E66.8: Other obesity ?O24.012: Pre-existing type 1 diabetes mellitus, in Procedures ?00013: Ultrasound, uterus, real time with image documentation, and maternal evaluation ?plus detailed anatomic examination, transabdominal approach HISTORY ----- OB History ? 5. Para 1 ?T1A3L1 MATERNAL ASSESSMENT ----- Physical Exam ? Weight 79 kg. BMI 33.07 kg/m?? METHOD ----- Transabdominal ultrasound examination ----- Rodriguez . Number of fetuses: 1 DATING ----- Cycle: regular cycle GA by prior assessment 20 w + 6 d AARTI by prior assessment: 03/09/2023 Ultrasound examination on: 10/26/2022 GA by U/S based upon: AC, BPD, EFW, Femur, HC GA by U/S 21 w + 1 d AARTI by U/S: 03/07/2023 Method of dating: Restore dating from previous exam Assigned: based on stated AARTI, selected on 09/17/2022 Assigned GA 20 w + 6 d Assigned AARTI: 03/09/2023 BIOMETRY ----- BPD ?49.7 ? mm ? 21w 0d ? 57% ?Hadlock OFD ?68.8 ? mm ? 23w 0d ? 98% ?Kirsty HC ? 191.0 ?mm ? 21w 3d ? 64% ?Hadlock Cerebellum tr ?22.4 ? mm ? 21w 5d ? 67% ?Villarreal Nuchal fold ?2.9 ?mm AC ? 154.3 ?mm ? 20w 4d ? 35% ?Hadlock Femur ?36.3 ? mm ? 21w 4d ? 65% ?Hadlock Humerus ?34.4 ? mm ? 21w 5d ? 77% ?Kirsty HC / AC ?1.24 ?87% ? Nicolaides Weight Calculation: EFW ?397 ? g ?21w 0d ?56% ?Hadlock EFW (lb,oz) ?0 lb 14 ? oz EFW by ?Hadlock ([id number]) Head / Face / Neck Biometry: Cephalic index ? 0.72 ? 3% ?Nicolaides Body Stylist ? 7.4 ? mm CM ? 6.0 ? mm ? 74% ?Nicolaides Outer IOD ? 30.8 ?mm ? 19w 6d ?10% ?Kirsty Extremities / Bony Struc Biometry: FL / BPD ?0.73 ? 61% ?Hadlock FL / HC ? 0.19 ? 45% ?Hadlock FL / AC ? 0.24 ? 85% ?Hadlock Tibia ? 33.5 ?mm ? 22w 3d ?94% ?Kirsty GENERAL EVALUATION ----- Cardiac activity present. movements: present. Presentation: cephalic Placenta: Placental site: anterior. Placental mpjl-yw-cfdytfgp os distance 76 mm Umbilical cord: Cord vessels: 3 vessel cord. Insertion site: placental insertion: normal Amniotic fluid: Amount of AF: normal amount. MVP 5.2 cm ANATOMY ----- The following structures appear normal: Head / Neck ? Cranium. Lateral ventricles. Choroid plexus. Midline falx. Cavum septi pellucidi. Cerebellum. Cisterna ?magna. Thalami. ?Nuchal fold. Face ?Lips. Profile. Nose. Palate. Orbits. Heart / Thorax ?4-chamber view. RVOT view. LVOT view. 3-vessel view. 1-tgisig-ycdjjja view. Situs. Aortic arch view. ?Ductal arch view. Superior vena cava. Inferior vena cava. High short axis view. Cardiac rhythm. ?Diaphragm. Abdomen ? Abdominal wall. Stomach. Kidneys. Bladder. Spine ? Cervical spine. Thoracic spine. Lumbar spine. Sacral spine. Extremities / ? Arms. Right hand. Left hand. Legs. Right foot. Left foot. Skeleton MATERNAL STRUCTURES ----- Cervix ?Visualized ?Approach - Transabdominal: Cervical length 47.5 mm Right Ovary ? Normal ?Size 29 mm x 22 mm x 20 mm. Vol 6.5 cm?? Left Ovary ?Suboptimal GROWTH OVERVIEW ----- Exam date ? GA ?BPD (mm) ? HC (mm) ?AC (mm) ? FL (mm) ?HL (mm) ?EFW (g) 09/17/2022 ?15w 2d ?30.2 ?57% ?115.9 ? 55% ?98.5 ?74% ? 18.8 ?58% ?18.0 ?52% ?133 ? 68% 10/26/2022 ?20w 6d ?49.7 ?57% ?191.0 ? 64% ?154.3 ?35% ?36.3 ?65% ?34.4 ?77% ?397 ? 56% COMMENT ----- Patient's name and date of were verified by the engineering technical analyst before the exam IMPRESSION ----- Rodriguez @ 20w 6d complicated by T1DM. - The biometry is consistent with dates. - Amniotic fluid indices are within normal limits. - The placenta is anterior with no evidence of previa or low-lying placenta. - Visualized anatomy is unremarkable and no abnormality is suspected at this time. A followup ultrasound and echocardiogram are recommended in 4 weeks to check growth and evaluate the cardiac anatomy given T1DM. Thank you for allowing us to participate in the care of your patient. Procedure Note Kanchan Sanchez MD - 10/26/2022 [facility] COMP ----- Pat. Name:Harlan MENJIVAR Date:10/26/2022 1:15pm Pat. NO: [id number] MD:MIREYA MOORE MD [facility]:Magdalena Wade RDMS :1995Age:27 ----- INDICATION ----- Pre-existing Type 1 Diabetes Mellitus Obesity, Other Maternal Care for Low Transverse Scar from x 1 Previous Delivery (Previous ) CODING ----- Diagnoses Z3A.20: Weeks of gestation O34.211: Maternal care for low transverse scarfrom previous delivery E66.8: Other obesity O24.012: Pre-existing type 1 diabetes mellitus, inpregnancy Procedures 71875: Ultrasound, uterus, real time withimage documentation, and maternal evaluation plus detailed anatomic examination,transabdominal approach HISTORY ----- OB History 5. Para 1 [id number] MATERNAL ASSESSMENT ----- Physical Exam Weight 79 kg. BMI 33.07 kg/m?? METHOD ----- Transabdominal ultrasound examination ----- Rodriguez . Number of fetuses: 1 DATING ----- Cycle:regular cycle GA by prior [id number] w + 6 d AARTI by prior assessment:03/09/2023 Ultrasound examination on:10/26/2022 GA by U/S based upon:AC, BPD, EFW, Femur, HC GA by U/S21 w + 1 d AARTI by U/S:03/07/2023 Method of dating:Restore dating from previous exam Assigned:based on stated ARATI, selected on 09/17/2022 Assigned [id number] w + 6 d Assigned AARTI:03/09/2023 BIOMETRY ----- BPD 49.7 mm 21w 0d57% Hadlock OFD 68.8 mm 23w 0d98% Kirsty HC 191.0 mm 21w 3d64% Hadlock Cerebellum tr 22.4 mm 21w 5d67% Villarreal Nuchal fold 2.9 mm AC 154.3 mm 20w 4d35% Hadlock Femur 36.3 mm 21w 4d65% Hadlock Humerus 34.4 mm 21w 5d77% Kirsty HC / AC 1.24 87%Nicolaides Weight Calculation: EFW 397 g 21w 0d 56%Hadlock EFW (lb,oz) 0 lb 14 oz EFW by Hadlock ([id number]) Head / Face / Neck Biometry: Cephalic index 0.72 3%Nicolaides Body Stylist 7.4 mm CM 6.0 mm 74%Nicolaides Outer IOD 30.8 mm 19w 6d 10%Kirsty Extremities / Bony Struc Biometry: FL / BPD 0.73 61%Hadlock FL / HC 0.19 45%Hadlock FL / AC 0.24 85%Hadlock Tibia 33.5 mm 22w 3d 94%Kirsty GENERAL EVALUATION ----- Cardiac activity present. movements: present. Presentation:cephalic Placenta: Placental site: anterior. Placental ncag-vk-oqikwzjb os [id number] mm Umbilical cord: Cord vessels: 3 vessel cord. Insertion site: placentalinsertion: normal Amniotic fluid: Amount of AF: normal amount. MVP 5.2 cm ANATOMY ----- The following structures appear normal: Head / Neck Cranium. Lateral ventricles. Choroid plexus.Midline falx. Cavum septi pellucidi. Cerebellum. Cisterna magna. Thalami. Nuchal fold. Face Lips. Profile. Nose. Palate. Orbits. Heart / Thorax 4-chamber view. RVOT view. LVOT view. 3-vesselview. 7-nfuawq-myadcnv view. Situs. Aortic arch view. Ductal arch view. Superior vena cava. Inferiorvena cava. High short axis view. Cardiac rhythm. Diaphragm. Abdomen Abdominal wall. Stomach. Kidneys. Bladder. Spine Cervical spine. Thoracic spine. Lumbar spine.Sacral spine. Extremities / Arms. Right hand. Left hand. Legs. Right foot.Left foot. Skeleton MATERNAL STRUCTURES ----- Cervix Visualized Approach - Transabdominal: Cervical length 47.5mm Right Ovary Normal Size 29 mm x 22 mm x 20 mm. Vol 6.5 cm?? Left Ovary Suboptimal GROWTH OVERVIEW ----- Exam date GA BPD (mm) HC (mm) AC (mm) FL(mm) HL (mm) EFW (g) 09/17/2022 15w 2d 30.2 57% 115.9 55% 98.5 74%18.8 58% 18.0 52% 133 68% 10/26/2022 20w 6d 49.7 57% 191.0 64% 154.3 35%36.3 65% 34.4 77% 397 56% COMMENT ----- Patient's name and date of were verified by the engineering technical analyst beforethe exam IMPRESSION ----- Rodriguez @ 20w 6d complicated by T1DM. - The biometry is consistent with dates. - Amniotic fluid indices are within normal limits. - The placenta is anterior with no evidence of previa or low-lyingplacenta. - Visualized anatomy is unremarkable and no abnormality is suspectedat this time. A followup ultrasound and echocardiogram are recommended in 4 weeksto check growth and evaluate the cardiac anatomy given T1DM. Thank you for allowing us to participate in the care of your patient. Kelli Neal MD US ORDERABLES * US OB 14+ WKS SINGLE GEST (09/17/2022 1:33 PM CDT) Anatomical Region Laterality Modality Pelvis Ultrasound 09/17/2022 1:00 PM CDT Narrative 09/17/2022 1:43 PM CDT STL BASIC ----- Pat. Name: KARINA MENJIVAR Study Date: 09/17/2022 1:00pm Pat. NO: [id number] Referring ??MD: MIREYA MOORE MD Site: [facility] Manager: Magdalena Xiong : 1995 Age: 27 ----- INDICATION ----- Pre-existing Type 1 Diabetes Mellitus Obesity, Other Maternal Care for Low Transverse Scar from ? x 1 Previous Delivery (Previous ) CODING ----- Diagnoses ? Z3A.15: Weeks of gestation ?O34.211: Maternal care for low transverse scar from previous delivery ?E66.8: Other obesity ?O24.012: Pre-existing type 1 diabetes mellitus, in Procedures ?95698: Ultrasound, uterus, real time with image documentation, [...] ? mm ? 15w 4d ? 57% ?Hadlock OFD ?41.0 ? mm ? 16w 2d [...] ?0 lb 5 ?oz EFW by ?Hadlock ([id number]) Head / Face / Neck Biometry: Cephalic index ?0.74 ? 3% ?Nicolaides CM ?2.3 ? mm ? 8% ?Nicolaides Extremities / Bony Struc Biometry: FL / BPD ? 0.62 ?78% ?Hadlock FL / HC ?0.16 ?53% ?Hadlock FL / AC ?0.19 ?42% ?Hadlock GENERAL EVALUATION ----- Cardiac activity present. FHR 158 bpm. movements: visualized. Presentation: breech Placenta: Placental site: anterior. Placental pivc-ys-yofhcdqy os distance 40 mm Umbilical cord: Cord [...] view. RVOT view. LVOT view. 3-vessel view. 2-djkifi-hqhkuad view. Aortic arch view. Ductal arch ?view. [...] and date of were confirmed by the engineering technical analyst prior to the exam IMPRESSION ----- Impression: [...] - 09/17/2022 ST[facility] BASIC ----- Pat. Name:Harlan MENJIVAR Date:09/17/2022 1:00pm Pat. NO: [id number] MD:MIREYA MOORE [facility] Xiong :1995Age:27 ----- INDICATION ----- Pre-existing Type 1 Diabetes Mellitus Obesity, Other Maternal Care for Low Transverse Scar from x 1 Previous Delivery (Previous ) CODING ----- Diagnoses Z3A.15: Weeks of gestation O34.211: Maternal care for low transverse scarfrom previous delivery E66.8: Other obesity O24.012: Pre-existing type 1 diabetes mellitus, inpregnancy Procedures 43923: Ultrasound, uterus, real time withimage documentation, and [...] dating:based on stated AARTI GA by prior [id number] w + 2 d AARTI by prior [...] Hadlock Cerebellum tr 15.1 mm 16w 1d65% Villarreal AC 98.5 mm 15w 6d74% Hadlock Femur 18.8 mm 15w 4d58% Hadlock Humerus 18.0 mm 15w 1d52% Kirsty HC / AC 1.18 26%Nicolaides Weight Calculation: EFW 133 g 15w 4d 68%Hadlock EFW (lb,oz) 0 lb 5 oz EFW by Hadlock ([id number]) Head / Face / Neck Biometry: Cephalic index 0.74 3%Nicolaides CM 2.3 mm 8%Nicolaides Extremities / Bony Struc Biometry: FL / BPD 0.62 78%Hadlock FL / HC 0.16 53%Hadlock FL / AC 0.19 42%Hadlock GENERAL EVALUATION ----- Cardiac activity present. FHR 158 bpm. movements: visualized.Presentation: breech Placenta: Placental site: anterior. Placental guau-wg-nhghgqvo os oogvdxnv85 mm Umbilical cord: Cord vessels: 3 vessel [...] 4-chamber view. RVOT view. LVOT view. 3-vesselview. 4-pkmpte-kerpjgm view. Aortic arch view. Ductal arch view. [...] and date of were confirmed by the engineering technical analyst priorto the exam IMPRESSION ----- Impression: - [...] Diagnosis Supervision of high risk in first trimester- Primary Unspecified high-risk Obesity affecting in first trimester 12 weeks gestation of state, incidental Type 1 diabetes mellitus with hyperglycemia Type I (juvenile type) diabetes mellitus without mention of complication, not stated as uncontrolled Gastroparesis due to DM Type II or unspecified type diabetes mellitus with neurological manifestations, not stated as uncontrolled Supervision of high risk in first trimester Unspecified high-risk Obesity affecting in first trimester 12 weeks gestation of state, incidental Type 1 diabetes mellitus with hyperglycemia Type I (juvenile type) diabetes mellitus without mention of complication, not stated as uncontrolled Supervision of high risk in first trimester Unspecified high-risk Obesity affecting in first trimester 12 weeks gestation of state, incidental Type 1 diabetes mellitus with hyperglycemia Type I (juvenile type) diabetes mellitus without mention of complication, not stated as uncontrolled Supervision of high risk in first trimester Unspecified high-risk Obesity affecting in first trimester 12 weeks gestation of state, incidental Type 1 diabetes mellitus with hyperglycemia Type I (juvenile type) diabetes mellitus without mention of complication, not stated as uncontrolled documented in this encounter
--- OUTSIDE RECORDS SUMMARY | 2024-05-10 19:01 | XMS_ITS | Encounter Summary ---
Author Organization [facility] Address [address] [place] [address] Care Team Providers Care Fertilizer Loader Name Role Phone Unavailable Primary Care Provider Unavailabl e Reason for Referral * Radiology Services (Routine) - Closed Specialty Diagnoses / Procedures Referred By Rachael frey Referred To Contact Radiology Diagnoses Supervision of high risk in first trimester Obesity affecting in first trimester 12 weeks gestation of Type 1 diabetes mellitus with hyperglycemia Procedures US OB FOLLOW UP PER FETUS Kelli Neal MD [address] [place] [address] [address] [facility] [address] [place] [address] Referral ID Status Reason Start Date Expiration Date Visits Re quested Visits Authorized [id number] Closed 08/31/2022 10/01/2023 1 1 Reason for Visit * Radiology Services (Routine) - Closed Specialty Diagnoses / Procedures Referred By Contac t Referred To Contact Radiology Diagnoses Supervision of high risk in first trimester Obesity affecting in first trimester 12 weeks gestation of Type 1 diabetes mellitus with hyperglycemia Procedures US OB FOLLOW UP PER FETUS Kelli Neal MD [address] [place] [address] [facility] [address] [place] [address] Referral ID Status Reason Start Date Expiration Date Visits Re quested Visits Authorized [id number] Closed 08/31/2022 10/01/2023 1 1 Encounter Details Date Type Department Care Team (Late st Contact Info) Description 11/18/2022 12:33 PM CDT - 11/18/2022 11:59 PM CDT Hospital Encounter [facility] [address] [place] [address] Kelli Neal MD [address] [place] [place] [address] Discharge Disposition: Home or Self Care Social [...] US OB FOLLOW UP PER FETUS Routine 11/18/2022 1:59 PM CDT Supervision of high risk in first trimester Obesity affecting in first trimester 12 weeks gestation of Type 1 diabetes mellitus with hyperglycemia documented in this encounter Results * US OB FOLLOW UP PER FETUS (11/18/2022 1:59 PM CDT) Anatomical Region Laterality Modality Pelvis Ultrasound 11/18/2022 12:5 9 PM CDT Narrative 11/18/2022 2:08 PM CDT STL FOLLOW UP ----- Pat. Name: KARINA FUCHS Study Date: 11/18/2022 12:59pm Pat. NO: [id number] Referring ??MD: PHILOMENA MOORE MD Site: [facility] [employer] Functional Tester: Nya Matamoros RDMS : 1995 Age: 27 ----- INDICATION ----- Pre-existing Type 1 Diabetes Mellitus Obesity, Other Maternal Care for Low Transverse Scar from Previous Delivery (Previous ) CODING ----- Diagnoses ? Z3A.24: Weeks of gestation ?O34.211: Maternal care for low transverse scar from previous delivery ?E66.8: Other obesity ?O24.012: Pre-existing type 1 diabetes mellitus, in Procedures ?40480: Ultrasound, uterus, real time with image documentation, follow up, transabdominal ?approach per fetus ?41104: Echocardiography, , cardiovascular system, real time with image documentation (2D), with or ?without M-mode recording ?39655: Doppler echocardiography color flow velocity mapping ?84556: Doppler echocardiography, , cardiovascular system, pulsed wave and/or continuous wave with ?spectral display; complete HISTORY ----- OB History ? 5. Para 1 ?T1A3L1 MATERNAL ASSESSMENT ----- Physical Exam ? Weight 75 kg. BMI 31.18 kg/m?? METHOD ----- Transabdominal ultrasound examination ----- Rodriguez . Number of fetuses: 1 DATING ----- Cycle: regular cycle GA by prior assessment 24 w + 1 d AARTI by prior assessment: 03/09/2023 Ultrasound examination on: 11/18/2022 GA by U/S based upon: AC, BPD, EFW, Femur, HC GA by U/S 24 w + 5 d AARTI by U/S: 03/05/2023 Method of dating: Restore dating from previous exam Assigned: based on stated AARTI, selected on 09/17/2022 Assigned GA 24 w + 1 d Assigned AARTI: 03/09/2023 BIOMETRY ----- BPD ?59.4 ? mm ? 24w 2d ? 47% ?Hadlock OFD ?79.4 ? mm ? 25w 6d ? 95% ?Kirsty HC ? 222.1 ?mm ? 24w 2d ? 35% ?Hadlock Cerebellum tr ?28.4 ? mm ? 26w 2d ? 92% ?Villarreal AC ? 209.0 ?mm ? 25w 3d ? 80% ?Hadlock Femur ?45.3 ? mm ? 25w 0d ? 65% ?Hadlock HC / AC ?1.06 ?12% ? Nicolaides Weight Calculation: EFW ?770 ? g ?24w 6d ?82% ?Hadlock EFW (lb,oz) ?1 lb 11 ? oz EFW by ?Hadlock ([id number]) Head / Face / Neck Biometry: Cephalic index ? 0.75 ? 14% ?Nicolaides Digital Media Buyer ? 6.7 ? mm CM ? 4.5 ? mm ? 11% ?Nicolaides Thorax / Lungs Biometry: Thoracic circ ?156.3 ?mm ? 14% ?Lessoway ThC / AC ? 0.75 Heart / Great Vessels Biometry: Cardiac axis ?38 ? Cardiac circ ?94.0 ?mm CC / ThC ?0.60 PA main ?4.9 ?mm Ductus art. ?3.1 ?mm ?31% ?Whitten Rt PA branch ? 2.2 ?mm Lt PA branch ? 2.3 ?mm Ao root ?3.2 ?mm ?4% ?Sharland Ao asc ? 4.2 ?mm Ao isthmus ? 2.9 ?mm Ao desc ?3.2 ?mm PA main / Ao asc ?1.17 McGoon Index mod. ? 1.4 Ao isthmus / Ductus art. ?0.94 IVC ?3.6 ? mm SVC ?3.2 ? mm Extremities / Bony Struc Biometry: FL / BPD ?0.76 FL / HC ? 0.20 FL / AC ? 0.22 GENERAL EVALUATION ----- Cardiac activity present. FHR 162 bpm. movements: present. Presentation: cephalic Placenta: anterior Umbilical cord: Cord vessels: 3 vessel cord. Amniotic fluid: Amount of AF: normal amount. MVP 4.3 cm ECHOCARDIOGRAM ----- Situs ? situs solitus (normal) Cardiac position ?levocardia (normal) Cardiac axis ?normal Cardiac size ?normal (approx. 1/3 of thoracic area) Cardiac rhythm ?regular (normal) 4-chamber view ?normal LVOT view ? normal RVOT view ? normal 3-vessel view ? normal 2-kdyfki-ujzslrs view ? normal High short axis view ?normal Low short axis view ? normal Aortic arch view ?normal Ductal arch view ?normal Bicaval view ?normal Venous-atrial connections ? normal size and morphology AV connections ?normal alignment VA connections ?normal size and morphology IVC ? Normal SVC ? Normal Pulmonary veins ? normal size and morphology Right atrium ?Normal Left atrium ? Normal Atrial septum ? normal size and morphology Foramen ovale ? normal (in the central third/half, flap valve in left atrium) Right ventricle ? Normal Left ventricle ?Normal Ventricular septum ?normal size and morphology Tricuspid valve ? normal size and morphology Mitral valve ?normal size and morphology Pulmonary valve ? normal size and morphology Aortic valve ?normal size and morphology Cross-over gr. arteries ? anterior great artery (confirmed to be the pulmonary artery by its branching) which ?crosses the course of the proximal aorta, indicative of normal relationship of the ?great arteries Main PA ? the main pulmonary artery can be seen bifurcating into the arterial duct and the ?right pulmonary artery Pulmonary arteries ?Normal Ascending aorta ? normal size and morphology Ductal arch ? Normal Aortic arch ? Normal Brachioceph. arteries ? normal size and morphology Descending aorta ?normal size and morphology Ductus venosus ?Normal Echogenic focus ? no Linear insertion of AV valves ? no Pericardial effusion ?no Cardiac Biometry: RA width diast ?9.0 ? mm RV length diast ? 15.9 ?mm ?55% ?Whitten RV width diast ?4.9 ? mm ?<1% ?Whitten RV wall diast ? 2.7 ? mm ?88% ?Whitten LA width diast ?8.5 ? mm LV length diast ? 17.3 ?mm ?40% ?Whitten LV width diast ?8.1 ? mm ?16% ?Whitten LV wall diast ? 2.2 ? mm ?37% ?Whitten RV length diast / LV length diast ? 0.92 IV Septum diast ? 3.6 ? mm ?>99% ?Whitten RVOT diam ?4.9 ? mm RVOT area ?19.0 ?mm?? LVOT diam ?3.6 ? mm LVOT area ?10.0 ?mm?? LA/Ao diast ?2.66 TV annulus diast ? 5.6 ?mm PV annulus syst ?4.4 ?mm MV annulus diast ? 6.4 ?mm AoV annulus syst ? 3.8 ?mm MV annulus diast / TV annulus diast ? 1.14 AoV annulus syst / PV annulus syst ?0.86 Heart Z-Scores: ? Z- FL ?Z- BPD ?Z- GA ?Z- EFW ? Zscore by RV width diast ? 4.9 ?mm ? -4.76 ?-3.91 ? -4.15 ? Montelongo LV width diast ? 8.1 ?mm ? -0.98 ?-0.29 ? -0.33 ? Montelongo TV annulus ? 5.6 ?mm ? -2.50 ?- 1.77 ? -1.83 ? Montelongo diast MV annulus ? 6.4 ?mm ? -1.47 ?- 0.74 ? -0.74 ? Montelongo diast PV annulus syst ?4.4 ?mm ? -0.89 ?-0.12 ? -0.10 ? Montelongo AoV annulus ?3.8 ?mm ? -0.44 ?0.22 ?0.23 ? Montelongo syst PA main ?4.9 ?mm ? -0.43 ?0.15 ?0.15 ? Montelongo Ductus art. ?3.1 ?mm ? -0.18 ?0.27 ?0.23 ? Montelongo Rt PA branch ? 2.2 ?mm ? -1.14 ?-0.65 ? -0.68 ? Montelongo Lt PA branch ? 2.3 ?mm ? -0.40 ?0.11 ?0.00 ? Montelongo Ao asc ? 4.2 ?mm ? -0.66 ?0.02 ?0.03 ? Montelongo Ao isthmus ? 2.9 ?mm ? 0.02 ? 0.12 ?0.13 ? 0.19 ? Chad Ao desc ?3.2 ?mm ? -1.58 ?- 0.77 ? -0.86 ? Montelongo IVC ?3.6 ?mm ? 1.15 ? 1.59 ?1.56 ? Montelongo Cardiac Doppler: Tricuspid Valve: E-wave ?35.28 ?cm/s A-wave ?52.00 ?cm/s E / A ? 0.68 ?59% ?Hecher Mitral Valve: E-wave ? 29.50 ?cm/s A-wave ? 59.60 ?cm/s E / A ?0.49 ? 1% ?Hecher Pulmonary Valve: Vmax ? 58.20 ?cm/s Aortic Valve: Vmax ? 69.39 ? cm/s ? 55% ?Felix DOPPLER ----- Aortic Isthmus: PS ? 93.18 ? cm/s ?81% ?Rubén Ductus Arteriosus: PS ? 90.60 ?cm/s ANATOMY ----- The following structures appear normal: Head / Neck ? Cranium. Heart / Thorax ?4-chamber view. RVOT view. LVOT view. 3-vessel view. 7-wbaedd-ieajzzn view. ?Diaphragm. Abdomen ? Stomach. Kidneys. Bladder. [...] ?80% ?45.3 ?65% ? 770 ? 82% COMMENT ----- Patient's name and date of were verified by the nurse leader prior to the exam IMPRESSION ----- Screening Maternal Medicine Echocardiogram A screening echocardiogram [...] us to participate in your patient's care Procedure Note Charisma Jenkins MD - 11/18/2022 ST FOLLOW UP ----- Pat. Name:MILI FUCHSDeepa Date:11/18/2022 12:59pm Pat. NO: [id number] MD:PHILOMENA MOORE MD [facility] Matamoros RDMS :1995Age:27 ----- INDICATION ----- Pre-existing Type 1 Diabetes Mellitus Obesity, Other Maternal Care for Low Transverse Scar from Previous Delivery (Previous ) CODING ----- Diagnoses Z3A.24: Weeks of gestation O34.211: Maternal care for low transverse scarfrom previous delivery E66.8: Other obesity O24.012: Pre-existing type 1 diabetes mellitus, inpregnancy Procedures 35139: Ultrasound, uterus, real time withimage documentation, follow up, transabdominal approach per fetus 23425: Echocardiography, , cardiovascularsystem, real time with image documentation (2D), with or without M-mode recording 08093: Doppler echocardiography color flowvelocity mapping 91537: Doppler echocardiography, ,cardiovascular system, pulsed wave and/or continuous wave with spectral display; complete HISTORY ----- OB History 5. Para 1 T1A3L1 MATERNAL ASSESSMENT ----- Physical Exam Weight 75 kg. BMI 31.18 kg/m?? METHOD ----- Transabdominal ultrasound examination ----- Rodriguez . Number of fetuses: 1 DATING ----- Cycle:regular cycle GA by prior [id number] w + 1 d AARTI by prior assessment:03/09/2023 Ultrasound examination on:11/18/2022 GA by U/S based upon:AC, BPD, EFW, Femur, HC GA by U/S24 w + 5 d AARTI by U/S:03/05/2023 Method of dating:Restore dating from previous exam Assigned:based on stated AARTI, selected on 09/17/2022 Assigned GA24 w + 1 d Assigned AARTI:03/09/2023 BIOMETRY ----- BPD 59.4 mm 24w 2d47% Hadlock OFD 79.4 mm 25w 6d95% Kirsty HC 222.1 mm 24w 2d35% Hadlock Cerebellum tr 28.4 mm 26w 2d92% Villarreal AC 209.0 mm 25w 3d80% Hadlock Femur 45.3 mm 25w 0d65% Hadlock HC / AC 1.06 12%Nicolaides Weight Calculation: EFW 770 g 24w 6d 82%Hadlock EFW (lb,oz) 1 lb 11 oz EFW by Hadlock ([id number]-FL) Head / Face / Neck Biometry: Cephalic index 0.75 14%Nicolaides Digital Media Buyer 6.7 mm CM 4.5 mm 11%Nicolaides Thorax / Lungs Biometry: Thoracic circ 156.3 mm 14%Lessmichaely ThC / AC 0.75 Heart / Great Vessels Biometry: Cardiac axis 38?? Cardiac circ 94.0mm CC / ThC 0.60 PA main 4.9 mm Ductus art. 3.1 mm 31%Whitten Rt PA branch 2.2 mm Lt PA branch 2.3 mm Ao root 3.2 mm 4%[facility] Ao asc 4.2 mm Ao isthmus 2.9 mm Ao desc 3.2 mm PA main / Ao asc 1.17 McGoon Index mod. 1.4 Ao isthmus / Ductus art. 0.94 IVC 3.6mm SVC 3.2mm Extremities / Bony Struc Biometry: FL / BPD 0.76 FL / HC 0.20 FL / AC 0.22 GENERAL EVALUATION ----- Cardiac activity present. FHR 162 bpm. movements: present.Presentation: cephalic Placenta: anterior Umbilical cord: Cord vessels: 3 vessel cord. Amniotic fluid: Amount of AF: normal amount. MVP 4.3 cm ECHOCARDIOGRAM ----- Situs situs solitus (normal) Cardiac position levocardia (normal) Cardiac axis normal Cardiac size normal (approx. 1/3 ofthoracic area) Cardiac rhythm regular (normal) 4-chamber view normal LVOT view normal RVOT view normal 3-vessel view normal 3-txwjjo-vnwairx view normal High short axis view normal Low short axis view normal Aortic arch view normal Ductal arch view normal Bicaval view normal Venous-atrial connections normal size and morphology AV connections normal alignment VA connections normal size and morphology IVC Normal SVC Normal Pulmonary veins normal size and morphology Right atrium Normal Left atrium Normal Atrial septum normal size and morphology Foramen ovale normal (in the centralthird/half, flap valve in left atrium) Right ventricle Normal Left ventricle Normal Ventricular septum normal size and morphology Tricuspid valve normal size and morphology Mitral valve normal size and morphology Pulmonary valve normal size and morphology Aortic valve normal size and morphology Cross-over gr. arteries anterior great artery(confirmed to be the pulmonary artery by its branching) which crosses the course of theproximal aorta, indicative of normal relationship of the great arteries Main PA the main pulmonary artery canbe seen bifurcating into the arterial duct and the right pulmonary artery Pulmonary arteries Normal Ascending aorta normal size and morphology Ductal arch Normal Aortic arch Normal Brachioceph. arteries normal size and morphology Descending aorta normal size and morphology Ductus venosus Normal Echogenic focus no Linear insertion of AV valves no Pericardial effusion no Cardiac Biometry: RA width diast 9.0 mm RV length diast 15.9 mm55% Whitten RV width diast 4.9 mm<1% Whitten RV wall diast 2.7 mm88% Whitten LA width diast 8.5 mm LV length diast 17.3 mm40% Whitten LV width diast 8.1 mm16% Whitten LV wall diast 2.2 mm37% Whitten RV length diast / LV length diast 0.92 IV Septum diast 3.6 mm >99%Whitten RVOT diam 4.9mm RVOT area 19.0mm?? LVOT diam 3.6mm LVOT area 10.0mm?? LA/Ao diast 2.66 TV annulus diast 5.6mm PV annulus syst 4.4mm MV annulus diast 6.4mm AoV annulus syst 3.8mm MV annulus diast / TV annulus diast 1.14 AoV annulus syst / PV annulus syst 0.86 Heart Z-Scores: Z- FL Z- BPD Z-GA Z- EFW Zscore by RV width diast 4.9 mm -4.76 -3.91-4.15 Montelongo LV width diast 8.1 mm -0.98 -0.29-0.33 Montelongo TV annulus 5.6 mm -2.50 -1.77-1.83 Montelongo diast MV annulus 6.4 mm -1.47 -0.74-0.74 Montelongo diast PV annulus syst 4.4 mm -0.89 -0.12-0.10 Montelongo AoV annulus 3.8 mm -0.44 0.220.23 Montelongo syst PA main 4.9 mm -0.43 0.150.15 Montelongo Ductus art. 3.1 mm -0.18 0.270.23 Reginald Rt PA branch 2.2 mm -1.14 -0.65-0.68 Montelongo Lt PA branch 2.3 mm -0.40 0.110.00 Reginald Ao asc 4.2 mm -0.66 0.020.03 Reginald Ao isthmus 2.9 mm 0.02 0.120.13 0.19 Chad Ao desc 3.2 mm -1.58 -0.77-0.86 Reginald IVC 3.6 mm 1.15 1.591.56 Montelongo Cardiac Doppler: Tricuspid Valve: E-wave 35.28 cm/s A-wave 52.00 cm/s E / A 0.6859% Hecher Mitral Valve: E-wave 29.50 cm/s A-wave 59.60 cm/s E / A 0.491% Hecher Pulmonary Valve: Vmax 58.20 cm/s Aortic Valve: Vmax 69.39 cm/s55% Felix DOPPLER ----- Aortic Isthmus: PS 93.18 cm/s 81%Rubén Ductus Arteriosus: PS 90.60cm/s ANATOMY ----- The following structures appear normal: Head / Neck Cranium. Heart / Thorax 4-chamber view. RVOT view. LVOT view. 3-vesselview. 6-lyxdat-fbbotjr view. Diaphragm. Abdomen Stomach. Kidneys. Bladder. GROWTH OVERVIEW ----- Exam date GA BPD (mm) HC (mm) AC (mm) FL(mm) HL (mm) EFW (g) 09/17/2022 15w 2d 30.2 57% 115.9 55% 98.5 74%18.8 58% 18.0 52% 133 68% 10/26/2022 20w 6d 49.7 57% 191.0 64% 154.3 35%36.3 65% 34.4 77% 397 56% 11/18/2022 24w 1d 59.4 47% 222.1 35% 209.0 80%45.3 65% 770 82% COMMENT ----- Patient's name and date of were verified by the nurse leader prior tothe exam IMPRESSION ----- Screening Maternal Medicine Echocardiogram A screening echocardiogram was performed today secondary to T1DM.This reveals appropriate situs, cardiac size, and apical position. Atria and ventricles appear normal in size and shape. Normalcrossing of the outflow tracts noted. The cardiac septum appears intact. There is right to left flow through the foramen ovale. Theductal and aortic arches appear to be normal. The valvular flow appears to be appropriate. Normal rhythm on m-mode. Comments: The ultrasound findings and limitations in the detection ofcardiac defects as well as normal cardiac anatomy were shared with your patient. For example, echocardiogram may notbe able to detect all abnormalities such as very small ventricular septal defects, subtle valve abnormalities or coarctation ofthe aorta, nor can it predict persistence of structures such as patent foramen ovale or patent ductus arteriosus.All questions were addressed. Impression: Rodriguez viable intrauterine at 24w 1d. Estimated weight is 770 g (82%ile) with abdominal circumference atthe 80%ile. Amniotic fluid volume is normal. No major malformations identified within the limitations of ultrasound. Unremarkable screening echocardiogram. Recommendations: growth evaluation in 4 weeks. Thank you for inviting us to participate in your patient's care Kelli Neal MD US ORDERABLES documented in this encounter Visit Diagnoses Diagnosis Supervision of high risk in first trimester Unspecified high-risk Obesity affecting in first trimester 12 weeks gestation of state, incidental Type 1 diabetes mellitus with hyperglycemia Type I (juvenile type) diabetes mellitus without mention of complication, not stated as uncontrolled documented in this encounter
--- OUTSIDE RECORDS SUMMARY | 2024-05-10 19:01 | XMS_ITS | Encounter Summary ---
Author Organization [facility] Address [address] [place] [address] Care Team Providers Care Filament Tester Name Role Phone Unavailable Primary Care Provider Unavailabl e Encounter Details Date Type Department Care Team (Late st Contact Info) Description 07/16/2022 Abstract [facility] Maternal and Medicine - [facility] [address] [place] [address] Jasmina Souza Social History Tobacco Use Types [...]
--- OUTSIDE RECORDS SUMMARY | 2024-05-10 19:01 | XMS_ITS | Encounter Summary ---
Author Organization [facility] Address [address] [place] [address] Care Team Providers Care Biomedical Engineering Supervisor Name Role Phone Unavailable Primary Care Provider Unavailabl e Reason for Visit * Reason Comments Diabetes Encounter Details Date Type Department Care Team (Late st Contact Info) Description 01/20/2023 Chart Note [facility] MATERNAL MEDICINE [place] [address] [place] [address] Kelli Neal MD [address] [place] [address] Diabetes Social History Tobacco Use [...] Progress Notes * Kathryn Reyes RN - 01/20/2023 1:45 PM CDT Images from the original note were not included. [facility] Maternal Medicine Diabetes Log Review Gestational age: 33w1d Type of DM: DM1 Current regimen: Humalog via Tandem insulin pump + Dexcom CGM Comments: Pump and CGM data reviewed. Average sensor glucose for the past 7 days is 138 mg/dL. Average TDD is 41.93 units (59% basal, 31%bolus). -BG rising overnight and throughout majority of the day -Highs after all boluses. Pump is auto-bolusing frequently after meals. Continue to encourage to take insulin at least 10-15 minutes before first bite Recommendations: -Increase majority of basals by 10% -Adjust ICRs. Bolus at least 10-15 minutes prior to first bite -Send MM message weekly and prn for pump/CGM review INSULIN PUMP Control IQ ON Control IQ ON Control IQ ON Control IQ ON Control IQ ON Control IQ OFF Control IQ ON BASAL RATES TIME Current 10/08 11/19 12/02 12/09 01/06 01/20 3263-9756 0.9 0.85 0.95 0.90 0.90 1.00 1.00 4532-4835 1.2 1.25 1.40 1.40 1.40 1.40 1.55 8417-4582 0.8 0.80 0.90 0.90 0.90 0.90 1.00 0716-0899 0.9 0.85 0.95 0.85 0.85 0.90 1.00 CARB RATIO TIME Current 10/08 11/19 12/02 12/09 01/06 01/20 6028-5669 8 8 6 5 5 4 3 2852-0310 8 8 6 5 5 4 3 5638-3503 8 8 6 5 5 4 3 3778-0319 8 8 6 6 6 5 4 SENSITIVITY TIME Current 10/08 11/19 12/09 01/06 9767-5161 30 45 30 30 30 TARGET TIME TARGET RANGE 9829-6295 110-110 Kathryn Reyes RN Certified Diabetes Care & Edu Specialist [facility] Maternal Medicine MFM Attending Addendum Logs personally reviewed. CGM reviewed Agree with above. Kelli Neal MD FACOG FACS Maternal Medicine 01/20/2023 documented in this encounter Plan of Treatment Not on file documented as of this encounter Visit Diagnoses Not on filedocumented in this encounter
--- OUTSIDE RECORDS SUMMARY | 2024-05-10 19:01 | XMS_ITS | Encounter Summary ---
Author Organization [facility] Address [address] [place] [address] Care Team Providers Care Rib Matcher And Fitter Name Role Phone Unavailable Primary Care Provider Unavailabl e Reason for Visit * Reason Comments Diabetes Noncompliance Encounter Details Date Type Department Care Team ([facility] st Contact Info) Description 11/09/2022 Chart Note [facility] Maternal and Medicine - [facility] [address], [place] [address] Roxann Jansen MD [address] [place] [address] Diabetes (Noncompliance) Social History Tobacco Use Types Packs/Day Years [...] Progress Notes * Kathryn Reyes RN - 11/09/2022 9:[address] Velazquez's office of patient's noncompliance with sending blood glucose logs/providing communication and feedback on pump and CGM. Also notified office that patient does not have an OB for this . Dr. Velazquez requested full transfer of care to [facility] for patient's . Patient was given information on establishing care with a [facility] OB, but has not yet established care. Last communication received from patient on 10/08. [employer] messages sent on 10/16, 10/22, and 10/27 andtelephone calls on 10/16, 10/27, and 10/29. No response from patient at this time. No follow up scheduled at this time, although numerous attempts have been made to schedule this follow up. At this time, Certified Diabetes Care and Certification Engineer Team will be discontinuing all efforts to request blood glucose logs from patient. Patient has been notified via official letter from [facility] and will need to put forth following efforts to send blood glucose logs via [employer] or telephone call. documented in this encounter Plan of Treatment Not on file documented as of this encounter Visit Diagnoses Not on filedocumented in this encounter
--- OUTSIDE RECORDS SUMMARY | 2024-05-10 19:01 | XMS_ITS | Encounter Summary ---
Author Organization [facility] Address [address] [place] [address] Care Team Providers Care Chute Operator Name Role Phone Unavailable Primary Care Provider Unavailabl e Encounter Details Date Type Department Care Team (Late st Contact Info) Description 10/12/2022 Abstract [facility] MATERNAL MEDICINE [place] [address] [place] [address] Charisma Haji Social History Tobacco Use Types [...]
--- OUTSIDE RECORDS SUMMARY | 2024-05-10 19:01 | XMS_ITS | Encounter Summary ---
Author Organization [facility] Address [address] [place] [address] Care Team Providers Care Associate Business Analyst Name Role Phone Unavailable Primary Care Provider Unavailabl e Reason for Visit * Reason Comments Diabetes Encounter Details Date Type Department Care Team (Late st Contact Info) Description 12/02/2022 Chart Note [facility] MATERNAL MEDICINE [place] [address] [place] [address] Kelli Neal MD [address] [place] [address] Diabetes Social History Tobacco Use [...] Progress Notes * Kathryn Reyes RN - 12/02/2022 10:20 AM CDT Images from the original note were not included. [facility] Maternal Medicine Diabetes Log Review Gestational age: 26w1d Type of DM: DM1 Current regimen: Humalog via Tandem insulin pump + Dexcom CGM Comments: Pump and CGM data reviewed. Recent 1:1 with [facility], on 11/26. Suspected gastroparesis (see RDN note from 11/26 for more detail). Information on low residue diet provided. Upcoming MFM follow up with Dr. Neal on 12/09 Pt is currently in Control IQ and uses sleep mode overnights. Average daily glucose per CGM is 135.Current average total daily dose of insulin 44.21 units. Of this, 46% is basal and 41% is bolus insulin. Most recent pump adjustments were made on 11/19 -Automatic boluses from pump (seen as droplet symbols on pump/CGM report) contributing to hypoglycemic events. Automatic basal function is unable to fluctuate with these automatic boluses, due to insulin on board. Recommend transitioning into Sleep Mode for 24 hours/day and hopefully will prevent these hypoglycemic events -Did not make basal changes as recommended on 11/19. Rising sugars around 0200 daily and through theAM and afternoon -Highs following AM and afternoon meals. Inconsistent trends following meals after 1900 Recommendations: -Increase 0000, 0300, and 0800 basals by 6-13% -Adjust majority of ICRs -Turn on Sleep Mode 24 hours/day. Instructions sent on how to turn on Sleep Mode 24 hours/day -See pump changes below in bold -Send logs weekly and prn INSULIN PUMP Control IQ ON Control IQ ON Control IQ ON SLEEP MODE X24HR BASAL RATES TIME Current 10/08 11/19 12/02 7317-1848 0.9 0.85 0.95 0.90 8498-7624 1.2 1.25 1.40 1.40 6811-3283 0.8 0.80 0.90 0.90 4723-1042 0.9 0.85 0.95 0.85 CARB RATIO TIME Current 10/08 11/19 12/02 6278-1825 8 8 6 5 0659-3473 8 8 6 5 3275-1898 8 8 6 5 4028-3127 8 8 6 6 SENSITIVITY TIME Current 10/08 11/19 6656-1332 30 45 30 TARGET TIME TARGET RANGE 7345-1514 110-110 Kathryn Reyes, RN Certified Diabetes Care & Edu Specialist [facility] Maternal Medicine MFM Attending Addendum Logs personally reviewed. CGM reviewed Agree with above. Kelli Neal MD FACOG FACS Maternal Medicine 12/02/2022 documented in this encounter Plan of Treatment Not on file documented as of this encounter Visit Diagnoses Not on filedocumented in this encounter
--- OUTSIDE RECORDS SUMMARY | 2024-05-10 19:01 | XMS_ITS | Encounter Summary ---
Author Organization [facility] Address [address] [place] [address] Care Team Providers Care Galley Stripper Name Role Phone Unavailable Primary Care [...] SINGLE GEST Kelli Neal MD [address] [address] [facility] [address] [place] [address] Referral ID Status Reason Start Date Expiration Date Visits Re quested Visits Authorized [id number] Closed 08/31/2022 10/01/2023 1 1 Reason for Visit * Radiology Services (Routine) - Closed Specialty Diagnoses / Procedures Referred By Contac t Referred To Contact Radiology Diagnoses Supervision of high risk in first trimester Obesity affecting in first trimester 12 weeks gestation of Type 1 diabetes mellitus with hyperglycemia Procedures US OB DETAIL SINGLE GEST Kelli Neal MD [address] [place] [address] [facility] [address] [place] [address] Referral ID Status Reason Start Date Expiration Date Visits Re quested Visits Authorized [id number] Closed 08/31/2022 10/01/2023 1 1 Encounter Details Date Type Department Care Team (Late st Contact Info) Description 10/26/2022 1:00 PM CDT - 10/26/2022 11:59 PM CDT Hospital Encounter [facility] [place] [address] [place] [address] Kelli Neal MD [address] [facility] [address] [place] [address] Discharge Disposition: Home or Self Care Social [...] Priority Date/Time Associated Diagnosis Comments US OB DETAIL SINGLE GEST Routine 10/26/2022 2:07 PM CDT Supervision of high risk in first trimester Obesity affecting in first trimester 12 weeks gestation of Type 1 diabetes mellitus with hyperglycemia documented in this encounter Results * US OB DETAIL SINGLE GEST (10/26/2022 2:07 PM CDT) Anatomical Region Laterality Modality Pelvis Ultrasound 10/26/2022 1:15 PM CDT Narrative 10/26/2022 2:34 PM CDT STL COMP ----- Pat. Name: KARINA FUCHS Study Date: 10/26/2022 1:15pm Pat. NO: [id number] Referring ??MD: PHILOMENA MOORE MD Site: [place] Accreditation Coordinator: Magdalena Wade RDMS : 1995 Age: 27 ----- INDICATION ----- Pre-existing Type 1 Diabetes Mellitus Obesity, Other Maternal Care for Low Transverse Scar from ? x 1 Previous Delivery (Previous ) CODING ----- Diagnoses ? Z3A.20: Weeks of gestation ?O34.211: Maternal care for low transverse scar from previous delivery ?E66.8: Other obesity ?O24.012: Pre-existing type 1 diabetes mellitus, in Procedures ?75877: Ultrasound, uterus, real time with image documentation, [...] lb 14 ? oz EFW by ?Hadlock ([id number]-[id number]-FL) Head / Face / Neck Biometry: Cephalic index ? 0.72 ? 3% ?Nicolaides [place]man ? 7.4 ? mm CM ? 6.0 [...] Presentation: cephalic Placenta: Placental site: anterior. Placental idoq-zk-flupjkon os distance 76 mm Umbilical cord: Cord [...] view. RVOT view. LVOT view. 3-vessel view. 8-clkjmg-ouqmpez view. Situs. Aortic arch view. ?Ductal arch [...] and date of were verified by the tailor women's garment alteration before the exam IMPRESSION ----- Rodriguez @ [...] - 10/26/2022 STL COMP ----- Pat. Name:Harlan FUCHS Date:10/26/2022 1:15pm Pat. NO: [id number] MD:PHILOMENA MOORE [facility]Magdalena Wade RDMS :1995Age:27 ----- INDICATION ----- Pre-existing Type 1 Diabetes Mellitus Obesity, Other Maternal Care for Low Transverse Scar from x 1 Previous Delivery (Previous ) CODING ----- Diagnoses Z3A.20: Weeks of gestation O34.211: Maternal care for low transverse scarfrom previous delivery E66.8: Other obesity O24.012: Pre-existing type 1 diabetes mellitus, inpregnancy Procedures 32932: Ultrasound, uterus, real time withimage documentation, and maternal evaluation plus detailed anatomic examination,transabdominal approach HISTORY ----- OB History 5. Para 1 T1A3L1 MATERNAL ASSESSMENT ----- Physical Exam Weight 79 kg. BMI 33.07 kg/m?? METHOD ----- Transabdominal ultrasound examination ----- Rodriguez . Number of fetuses: 1 DATING ----- Cycle:regular cycle GA by prior [id number] w + 6 d AARTI by prior assessment:03/09/2023 Ultrasound examination on:10/26/2022 GA by U/S based upon:AC, BPD, EFW, Femur, HC GA by U/S21 w + 1 d AARTI by U/S:03/07/2023 Method of dating:Restore dating from previous exam Assigned:based on stated AARTI, selected on 09/17/2022 Assigned GA20 w + [...] 0 lb 14 oz EFW by Hadlock (DHP-PA-WL-FL) Head / Face / Neck Biometry: Cephalic index 0.72 3%Nicolaides [place]man 7.4 mm CM 6.0 mm 74%Nicolaides Outer IOD 30.8 mm 19w 6d 10%Kirsty Extremities / Bony Struc Biometry: FL / BPD 0.73 61%Hadlock FL / HC 0.19 45%Hadlock FL / AC 0.24 85%Hadlock Tibia 33.5 mm 22w 3d 94%Kirsty GENERAL EVALUATION ----- Cardiac activity present. movements: present. Presentation:cephalic Placenta: Placental site: anterior. Placental syox-qh-axucsmgx os qoxvxfkw29 mm Umbilical cord: Cord vessels: 3 vessel cord. Insertion site: placentalinsertion: normal Amniotic fluid: Amount of AF: normal amount. MVP 5.2 cm ANATOMY ----- The following structures appear normal: Head / Neck Cranium. Lateral ventricles. Choroid plexus.Midline falx. Cavum septi pellucidi. Cerebellum. Cisterna magna. Thalami. Nuchal fold. Face Lips. Profile. Nose. Palate. Orbits. Heart / Thorax 4-chamber view. RVOT view. LVOT view. 3-vesselview. 1-vlvxim-jssdwaw view. Situs. Aortic arch view. Ductal arch [...] and date of were verified by the tailor women's garment alteration beforethe exam IMPRESSION ----- Rodriguez @ 20w [...] your patient. Kelli Neal MD US ORDERABLES documented in this encounter Visit Diagnoses Diagnosis Supervision of high risk in first trimester Unspecified high-risk Obesity affecting in first trimester 12 weeks gestation of state, incidental Type 1 diabetes mellitus with hyperglycemia Type I (juvenile type) diabetes mellitus without mention of complication, not stated as uncontrolled documented in this encounter
--- OUTSIDE RECORDS SUMMARY | 2024-05-10 19:01 | XMS_ITS | Encounter Summary ---
Author Organization [facility] Address [address] [place] [address] Care Team Providers Care Package Delivery Room Service Runner Name Role Phone Unavailable Primary Care Provider Unavailabl e Reason for Visit * Reason Onset Date Comments Diabetes 12/28/2022 Encounter Details Date Type Department Care Team (Late st Contact Info) Description 12/28/2022 Telephone [facility] - [facility] [address] [address] [place] [address] Juhi Mathews MD [address] [facility] [address] [place] [address] Diabetes Social History Tobacco Use Types Packs/Day [...] Telephone Encounter - Kathryn Reyes RN - 12/28/2022 11:53 AM CDT Called patient and received voicemail. Notified to respond via ison furniture message or telephone call with permission to review pump/CGM. Also encouraged to call back to discuss OB appointment. Scheduled for initial consult 12/[address] Lin and mohit showed this appointment. Currently, patient does not have an OB unless she is seeing a provider out of charting network. Encouraged to call back LUPE to discuss. MFM follow up with DAMIAN Ruiz, on 01/06 Kathryn Reyes RN, BSN, [facility] Certified Diabetes Care & Edu Specialist [facility] Maternal Medicine [phone] documented in this encounter Plan of Treatment Not on file documented as of this encounter Visit Diagnoses Not on filedocumented in this encounter
== END 2024-05-04 01:10 | disposition home or self-care (01) ==
PROVIDERS: Emergency Provider Physician Assistant; PCP Emergency Medicine
DX: O20.0 Threatened abortion (principal); Z3A.13 13 weeks gestation of pregnancy; O24.011 Pre-existing type 1 diabetes mellitus, in pregnancy, first trimester; E10.9 Type 1 diabetes mellitus without complications; Z79.4 Long term (current) use of insulin; D64.9 Anemia, unspecified
CPT/HCPCS: 36415; 80053; 84702; 85025; 85461; 85610; 85730; 86850; 86900; 86901; 96360; 99291; J7030

== ENCOUNTER 2024-06-06 19:40 | Emergency (ER) | payer BC, SELFPAY ==
--- NOTE | ~2024-06-06 | XR_ITS ---
Portable chest x-ray Comparison: 02/27/2024 Clinical History: Leukocytosis Findings: Lungs are clear, without focal consolidation or pleural effusion. Cardiomediastinal silho uette is stable. Bones and soft tissues are unremarkable. Impression: Normal chest. Reviewed, dictated and finalized at [facility]. [employer] Impression: Normal chest.
--- OUTSIDE RECORDS SUMMARY | 2024-06-06 19:43 | XMS_ITS | Encounter Summary ---
Author Organization [facility] Address [address] [place] [address] Care Team Providers Care Superintendent Cemetery Name Role Phone Jolanta Freeman MD Primary Care Provider + [phone] Reason for Visit * Reason Onset Date Comments MEDICATION REFILL 03/18/2018 Encounter Details Date Type Department Care Team (Late st Contact Info) Description 03/18/2018 Refill [facility] [address] [place] [address] Pawan Ram MD [address] [place] [address] MEDICATION REFILL Social History Tobacco Use Types [...] on filedocumented in this encounter Care Teams Superintendent Cemetery Relationship Specialty Start Date End Date Jolanta Freeman MD PCP - General Pediatrics 05/24/13 documented as of this encounter
--- OUTSIDE RECORDS SUMMARY | 2024-06-06 19:43 | XMS_ITS | Data Portability ---
Author Organization [facility] Address [address] [place] [address] Care Team Providers Care Biostatistics Teacher Name Role Phone VICKY SIMENTAL Chain Link Fence Installer Assessment No assessment recorded. Plan of Treatment Reminders Order Date Submit Date Provider Last Modified By Organization Details Last Modified Time Details Appointments None recorded. Lab test, urine 2019 020 [email or web address] In-Office Order, Internal Use Only DO Not Attach Compendium DO Not Attach Compendium, Do Not Delete/merge, [id number] 12:26:41 prolactin , serum 2019 020 [facility], [address] [facility] [place], [address], 0 09:38:48 lh + FSH, serum 2019 020 [facility], [address] [facility] [address], [place], [address], 0 09:38:47 TSH, ultra-sen sitive, serum 2019 020 [facility], [address] [facility] 2, [place], [address], 0 09:38:48 test, urine 2019 020 [email or web address] In-Office Order, Internal Use Only DO Not Attach Compendium DO Not Attach Compendium, Do Not Delete/merge, [id number] 0 12:37:00 Referral None recorded. Procedures None recorded. Surgeries None recorded. Imaging None recorded. Medication Orders Microgest in FE 05/22 (28) 1 mg-20 mcg (21)/75 mg (7) tablet 2018 019 [facility], [address] [place], [address], 0 11:59:36 Provera 10 mg tablet 2019 020 [facility], [address] [facility], [place], [address], 0 12:37:09 Patient TargetsNo targets recorded. Patient Instructions Encounter Date Encounter Id Patient Instructions Last Modified By Organization Details Last Modified Time 11/16/2019 [id number] secondary amenorrhea: care instructions [email or web address] Not available 11/16/2019 12:37:00 Reason for Referral None Reported. Results Created Date Observation Date Name Description Value Unit Range Abnormal Flag Note LastModifiedBy Organization Detail LastModifiedTime 10/20/19 19 10/19/2018 pregn nahum test, urine HCG positi ve Not Available In-Office Order Internal Use Only DO Not Attach Compendium DO Not Attach Compendium, Do Not Delete/merge, [id number] 10/19/2018 10:21:23 10/27/19 19 10/28/2018 bacte rial vagin osis + vagin itis panel , vagin al atopobium vaginae Low - 0 score Not Available [facility] ([facility]) [address] [facility], [place], [address], 10/29/2018 16:35:29 10/27/19 19 10/28/2018 bacte rial vagin osis + vagin itis panel , vagin al bvab 2 Low - 0 score Not Available [facility] ([facility]) [address] [facility], [place], [address], 10/29/2018 16:35:29 10/27/19 19 10/28/2018 bacte rial [...] is not neces jason. Not Available [facility] ([facility]) [address] [place], [address], 10/29/2018 16:35:29 10/27/19 19 10/28/2018 bacte rial vagin osis + vagin itis panel , vagin al trich vag by HOMERO Negati ve negati ve Not Available [facility] ([facility]) [address] [place], [address], 10/29/2018 16:35:29 10/27/19 19 10/28/2018 bacte rial vagin osis + vagin itis panel , vagin al chlamydia trachomatis, HOMERO Negati ve negati ve Not Available [facility] ([facility]) [address] [place], [address], 10/29/2018 16:35:29 10/27/19 19 10/28/2018 bacte rial vagin osis + vagin itis panel , vagin al neisseria gonorrhoeae, HOMERO Negati ve negati ve Not Available [facility] ([facility]) [address] [place], [address], 10/29/2018 16:35:29 10/27/19 19 10/29/2018 bacte rial vagin osis + vagin itis panel , vagin al nidia albicans, HOMERO Positi ve negati ve abnormal Not Available [facility] ([facility]) [address] [facility], [place], [address], 10/29/2018 16:35:29 10/27/19 19 10/29/2018 bacte rial [...] is not neces jason. Not Available [facility] ([facility]) [address] [facility], [place], [address], 10/29/2018 16:35:29 10/27/19 19 10/26/2018 urina lysis , dipst ick Protein Negati ve Not Available In-Office Order Internal Use Only DO Not Attach Compendium DO Not Attach Compendium, Do Not Delete/merge, [id number] 10/26/2018 11:21:30 10/27/1910/26/2018 urina lysis , dipst ick Glucose Negati ve Not Available In-Office Order Internal Use Only DO Not Attach Compendium DO Not Attach Compendium, Do Not Delete/merge, [id number] 10/26/2018 11:21:30 10/05/19 20 10/05/2019 pregn nahum test, urine HCG negati ve Not Available In-Office Order Internal Use Only DO Not Attach Compendium DO Not Attach Compendium, Do Not Delete/merge, [id number] 10/05/2019 12:14:51 11/16/1911/17/2019 lh + FSH, serum LH 55.3 mIU/m L Adult Femal e: Folli cular phase 2.4 - 12.6 Ovula tion phase 14.0 - 95.6 Lutea l phase 1.0 - 11.4 Postm enopa usal 7.7 - 58.5 Not Available [facility] ([facility]) [address] [facility], [place], [address], 11/17/2019 09:38:47 11/16/1911/17/2019 lh + FSH, serum FSH 11.5 mIU/m L Adult Femal e: Folli cular phase 3.5 - 12.5 Ovula tion phase 4.7 - 21.5 Lutea l phase 1.7 - 7.7 Postm enopa usal 25.8 - 134.8 Not Available [facility] ([facility]) [address] [place], [address], 11/17/2019 09:38:47 11/16/1911/17/2019 TSH, ultra -sens itive , serum TSH 2.050 uIU/m L 0.450- 4.500 Not Available [facility] ([facility]) [address] [place], [address], 11/17/2019 09:38:48 11/16/1911/17/2019 prola ctin, serum prolactin 24.4 NG/mL 4.8-23 .3 above high normal Not Available [facility] ([facility]) [address] [place], [address], 11/17/2019 09:38:48 11/16/1911/16/2019 pregn nahum test, urine HCG negati ve Not Available In-Office Order Internal Use Only DO Not Attach Compendium DO Not Attach Compendium, Do Not Delete/merge, [id number] 11/16/2019 12:29:25 11/01/19 19 10/29/2018 US, obste tric, 1st trime ster No observ ation record ed. [email or web address] [facility] (Radiology) [address] [place], [address], 11/09/2018 18:04:47 Result Notes None recorded. Problems Name Problem SNOMED Code Status Onset Date Resolution Date Notes Provider Name and Address Organization Details Recorded Time Diabetic ketoacid osis 923173166 Active 2017 admitted to U ICU Radha [place], [place] - [facility] 9 09:49:34 Type 1 diabetes mellitus 36178265 Active Carrie Joseph PA-C Attn: Accountin g,[address] 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, [place], [address], [place] - [facility] 9 09:30:16 Metaboli c alkalosi s 8544521 Active 2017 Carrie Joseph PA-C Attn: Accountin g,[address] [facility], [place], [address], [place] [facility] 9 09:31:33 Hypereme sis gravidar um with metaboli c disturba nce 774955835 Active 2018 Carrie Joseph PA-C Attn: Accountin g,[address] [facility], [place], [address], [place] - [facility] 9 09:31:33 Notes:multiple admissions fo r DKA and leaving AMA Problem Notes None recorded. Procedures Surgical History Date Name Laterality Status Provider Name and Address Organization Details Recorded Time 11/11/19 19 Dilation and Curettage completed Radha Perez [facility] 11/30/2018 09:54:12 11/10/19 19 Cerumen Removal completed Carrie Joseph PA-C Attn: Accounting,[address] [facility], [place], [address], [facility] 11/09/2018 08:59:31 08/16/19 19 Date of Last [facility]/19/2018 10:17:59 10/11/19 17 Caesarean Section completed Radha [facility] 08/15/2018 14:33:55 05/03/19 11 Tonsillectomy completed KAMI Cool CT - [facility] 01/17/2018 14:10:03 Imaging Results Imaging Date Name Status LastModified by Organiz ation Details LastModified Time 10/29/2018 US, obstetric, 1st trimester completed [email or web address] [facility] (Radiology) [address] [place] [address], [address], 11/09/2018 18:04:47 Procedure Notes None recorded. Medical [...] Not Available No t Available Dexcom [employer] Equipment Operator USE TO MONITOR BLOOD GLUCOSE CONTINUO USLY [...] Updated DateTime 9 156.21 cm 24.5 kg/m2 52573.1 9 g 114 /min 16 /min 98 % 98 % 114 [degF] 122 mm[Hg] 78 mm[Hg] Mar Menjivar [place] - [facility] 9 08:46:55 Date Recorded Body height Body mass index (BMI) Body weight Systolic blood pressure Diastolic blood pressure Provider Name and Address Organization Details Last Updated DateTime 11/09/2018 156.21 cm 25.4 kg/m2 31815.08 g 108 mm[Hg] 60 mm[Hg] [facility] 9 14:53:20 Date Recorded Body height Body mass index (BMI) Body weight Systolic blood pressure Diastolic blood pressure Provider Name and Address Organization Details Last Updated DateTime 11/30/2018 156.21 cm 26.5 kg/m2 63085.27 1962 g 110 mm[Hg] 74 mm[Hg] [facility] 9 09:52:01 Date Recorded Body height Body mass index (BMI) Body weight Systolic blood pressure Diastolic blood pressure Provider Name and Address Organization Details Last Updated DateTime 10/05/2019 156.21 cm 30.1 kg/m2 22134.32 g 100 mm[Hg] 80 mm[Hg] Radha Perez MA [facility] 0 11:58:16 Date Recorded Body height Body mass index (BMI) Body weight Systolic blood pressure Diastolic blood pressure Provider Name and Address Organization Details Last Updated DateTime 11/16/2019 156.21 cm 31.9 kg/m2 04816.17 g 106 mm[Hg] 78 mm[Hg] Cortney Lainez [facility] 0 12:12:18 Date Recorded Body height Provider Name an d Address Organization Details Last Updated DateTime 12/12/2019 156.21 cm Radha Perez MA [facility] 12/11 14:47:30 Social History Question Answer Notes LastModified by Organizat ion Details LastModified Time Tobacco Smoking Status Never Smoker KAMI Cool, [facility] 01/17/2018 14:07:35 Do You Have An Advance [...] available 10/05/2019 Education 12 2 Years At [employer] Information not available 01/17/2018 What Is Your Occupation? [employer] Information not available 10/05/2019 Frequent [...] Of Your Most Recent Tobacco Screening? 11/16/2019 [email or web address] Information not available 11/16/2019 How Many Children [...] How Much Tobacco Do You Smoke? No [email or web address] Information not available 11/16/2019 Smoking Pre- No [...] Atrial Fibrillation N High Blood Pressure N Blood Clots N COPD N Depression N Headaches/Migraines N Anxiety Disorder Y Muscle, Joint, or Bone Problems N Polyps N Infertility N Acid Reflux (GERD) Y Cancer N Stroke N Headaches N Kidney or Bladder Problems N Acne N Eating Disorder N Skin Problems N Asthma N Allergies N Hepatitis N Breast Cancer N Lung Disease N Breast Problem N Anesthesia Complications N Endometriosis N High Cholesterol N Liver Disease N Thyroid Problems N GI Problems Y Anemia N Heart Attack ([place]) N Diabetes Y Ovarian Cancer N Blood Transfusions N Seizures/Epilepsy N Abuse/Domestic Violence N Heart Disease N Pre-Eclampsia N Heart [...] virus, quadrivalent, preservative 9 completed Not Available [facility] 05/20/2019 02:37:03 Past Encounters Encounter ID Performer Location Encounter Start Date Encounter Closed Date Diagnosis/Indication Diagnosis SNOMED-CT Code Diagnosis ICD10 Code Diagnosis Note [id number] [facility] (Adult Med) [address] [place] [address] 01/17/2018 13:54:22 01/18/2018 15:15:08 Type 1 diabetes mellitus 62619371 E10.9 reviewed hospital records. Pt instructed to continue current insulin regimen w/ humalog and Lantus, will refill humalog until she can get in with endocrine. She is traveling to [place] next month, not sure what she needs for her insulin needles to take on plane, she has never flown before. Will write letter of medical necessity Microcytic anemia 369579 007 D50.9 reviewed labs from [facility] with patient, will need to review [facility] records from earlier in the year to see if stable or getting worse. Pt is asymptomat ic. Mixed anxi ety and depressive disorder 623758383 F41.8 started on zoloft this last hospital stay; she has appt w/ psych in Mar. Cont current dose, call here if any problems while waiting for appt. Gastropare sis due to type 1 diabetes mellitus 114460585 E10.43 if she develops new N/V or regurgitat ion of foods or constipati on, would recommend gastric emptying study. Gastroesop hageal reflux disease without esophagitis 065755681 K21.9 controlled , cont low acid diet, control DM and cont PPI prn. [id number] [facility] (Adult Med) [address] [place] [address] 05/26/2018 09:45:55 05/30/2018 10:05:02 Type 1 diabetes mellitus 33828837 E10.9 pt reports blood sugars in 100s, but few months ago was hospitaliz ed for DKA. discussed control, frequent testing, bring meter to next visit. Dysuria-fr equency syndrome 8801595 R30.0 w/ DM, tx for UTI, will get cx. discussed controllin g glucose to minimize infections . Generalize d anxiety disorder 53021290 F41.1 reports no anxiety attacks, says sertraline working. Chest pain 42121471 R07. 89 not likely cardiac, but w/ DM recommend stress test. Influenza vaccine needed 1519209011 106 Z23 Constipation 53754777 K5 9.00 discussed how this can contribute to chest pain sxs. Advised her to increase fiber, start stool softener and/or miralax, all available OTC. Drink plenty of water. possible gastropare sis from uncontroll ed DM. [id number] MD Malou Adames (Adult Med) [address] [place] [address] 08/10/2018 08:25:31 08/11/2018 09:08:16 Nausea 859343891 R11.0 pt feels similar to when she [...] gastric emptying study if negative for Amenorrhea 89794955 N91. 2 pt feels similar to when she was last , neg tests at home. Neg here as well. Recommend serum Hcg quantitati ve. Advised her to maintain tight glucose control. Make appt to see gynecologi st for amenorrhea whether or not she is . Type 1 jordyn betes mellitus 36945721 E10.69 recurrent UTI, DKA admission to hospital in late May and Jun. signed out AMA 06/26. She had glucose in 300s during hospital stay, A1c of 9.4% Abnormal urinalysis 1672 37561 R82.90 trace LE, will send for cx due to recurrent hospitaliz ations for UTI and DKA. Glycosuria 62199648 R81 pt reports glucose in 100-200s at home since she was d/c from hospital. Advised her to drink more water, call her endocrinol ogist to discuss high glucose in urine. [id number] Vicky Westfall (FUNERAL PLANNING COUNSELOR) [address] [place] [address] 08/15/2018 14:14:40 08/16/2018 11:45:52 Gynecologic examination 73539119 Z01.419 First pap today Fertility care 013845237 Z31.84 Pt. not preventing . Pt. encouraged to get glucose under tight control prior to getting . Pt. also advised to start taking vitamins now because need to be taking them before she would know she is . Rx sent to pharmacy. Irregular periods 151607 07 N92.6 Pt. missed her period in Jun. and July. She had negative serum beta hCG quant on 08/10/18. On period now. Will check hormones d/t Type I DM as well. [id number] Vicky Westfall (FUNERAL PLANNING COUNSELOR) [address] [place] [address] 10/19/2018 10:07:32 10/20/2018 13:18:27 Missed period 73297432 N92.5 UTP positive. Routine an tenatal care 742499619 Z34.81 At [place], beta hCG quant was 7000 and US showed a 2.5 mm GS with yolk sac. Repeat US ordered. Pre-existi ng type 1 diabetes mellitus in 308318381 O24.019 Poor glucose control. HbA1c 9.4 at [facility] on 10/05/18. DKA x 3 this year (05/21=[facility], 06/21 = [place], 10/19 = [facility] transferre d to [place]). Referral to [facility] for transfer of care generated, marii. [id number] Vicky Westfall (FUNERAL PLANNING COUNSELOR) [address] [place] [address] 10/26/2018 10:57:05 10/27/2018 11:52:06 Routine care 060089763 Z34.81 Repeat US not until Sat at [facility]. [facility] appt. pending viable by US. RTTee Butcher. for results and POC, marii. [id number] [facility] Torres (Adult Med) [address] [place] [address] 11/09/2018 08:36:19 11/10/2018 10:43:27 Type 1 diabetes mellitus 54077256 E10.69 recurrent UTI, DKA admission to hospital in late May and Jun. signed out AMA 06/26. She had glucose in 300s during hospital stay, A1c of 9.4%. Then hospitaliz ed w/ DKA in October, then hyperemesi s and metabolic alkalosis w/ DKA last week and again left AMA, but pt did not acknowledg e that. Reviewed most recent hospital records at [place] and [facility]. Advised her to keep f/u with endocrine this Wednesday; ask them about pneumonia vaccine. Impacted c erumen in right ear [id number] 334694 H61.21 resolved w/ lavage Mood disorder 11876272 F 40 pt has very flat affect and denies any problems when she is here for visits but has had 4 hospitaliz ations for DKA. She would benefit from psychology /psychiatr y referral. Revisit at f/u. [id number] Vicky eWstfall (FUNERAL PLANNING COUNSELOR) [address] [place] [address] 11/09/2018 14:43:07 11/10/2018 11:37:49 Missed miscarriage 49600699 O02.1 While in the hospital for DKA at [place] pt. [place] [address] [place] [address] confirming miscarriag e. She has not had [...] ion. Pre and post-OP expectatio ns discussed. [id number] Vicky Westfall (FUNERAL PLANNING COUNSELOR) [address] [place] [address] 11/30/2018 09:44:42 11/30/2018 14:02:55 Oral contraceptive prescribed 906245388 Z30.011 control options discussed. Pt. wants pills. Rx sent to pharmacy. Instructio ns discussed. Possible changes in blood glucose with OCPs discussed. Pt. to manage glucose accordingmarii pena. Postoperative visit 2330 64555 Z09 Pt. recovered. Pathology shows immature POCs, dwp. Pt. does not desire at this time. See below. [id number] Vicky Westfall (FUNERAL PLANNING COUNSELOR) [address] [place] [address] 10/05/2019 11:46:51 10/06/2019 09:08:38 Missed period 07296361 N92.5 UPT was negative, dwp. If pt. misses next period, take UPT at home and come in for TSH, FSH, prolactin check, dwp. Pt. already does not drink alcohol and she is taking gummie vitamins. [id number] Vicky Westfall (FUNERAL PLANNING COUNSELOR) [address] [facility] [place] [address] 11/16/2019 12:03:11 11/21/2019 09:33:49 Amenorrhea 86966132 N91.2 UPT is negative, dwp. Will check hormones and do a progestero ne challenge. Rx sent. Lokesh ma discussed. [id number] Vicky Simental [facility] (FUNERAL PLANNING COUNSELOR) [address] [place] [address] 12/12/2019 08:01:47 12/13/2019 19:23:43 Irregular periods 03051218 N92.6 TSH, FSH, and prolactin within normal [...] Garcia Member ID Guarantor Name 11/09/2018 1 [facility] (MEDICAID HM) [id number] 0003 Karina Fuchs [id number] Karina Fuchs 11/30/2018 1 [facility] (MEDICAID HMO) [id number] 0003 Karina Fuchs [id number] Karina Fuchs 10/05/2019 1 [facility] (MEDICAID HMO) [id number] 0003 Karina Fuchs [id number] Karina Fuchs 11/16/2019 1 [facility] (MEDICAID HMO) [id number] 0003 Karina Fuchs [id number] Karina Fuchs 12/12/2019 1 [facility] (MEDICAID HMO) [id number] 0003 Karina Fuchs [id number] Karina Fuchs Notes Date Note Type Note Provider Name and Address Organization Details Recorded Time 11/09/2018 text/html Pt. presents for follow-up to decreasing beta hCG quant with no bleeding. She denies any pain. Vicky Simental [place], [place] - [facility] 11/09/2018 16:57:54 11/09/2018 text/html [...] d/c. Carrie Joseph PA-C Attn: Accounting,[address] [place], [address], [place] [facility] 11/09/2018 11:24:58 11/30/2018 text/html Pt presents for post OP visit 2 weeks s/p suction D&C for a missed ab. She denies pain and bleeding. She has no complaints but does want to get on control. Vicky collazo, [place] - [facility] 11/30/2018 10:12:44 10/05/2019 text/html Pt presents with c/o missed period. She has not been taking her OCPs since 03/2019 because it messes with her blood sugar. She is using condoms. It has been 36 days since her last cycle and this has never happened to her before. Vicky collazo, [place] - [facility] 10/05/2019 12:26:16 11/16/2019 text/html Pt. [...] Domestic Partner Domestic Partner Phone Father Name Consolidator Status 08/16/19 19 1 CLOSED Fetus Data First Name Last Name Admitted to NICU Weight (g) Sex Living Outcome Pediatric Complications Fetus ID Race Codes Race Delivery Type F Full Term [id number] Héctor Calculation Initial Héctor Date Initial Exam [...] Domestic Partner Domestic Partner Phone Father Name Consolidator Status 12/01/19 19 1 CLOSED Fetus Data First Name Last Name Admitted to NICU Weight (g) Sex Living Outcome Pediatric Complications Fetus ID Race Codes Race Delivery Type , Spontane ous [id number] Héctor Calculation Initial Héctor Date Initial Exam [...] Domestic Partner Domestic Partner Phone Father Name Consolidator Status 10/20/19 19 1 O Positive sally link CLOSED Fetus Data First Name Last Name Admitted to NICU Weight (g) Sex Living Outcome Pediatric Complications Fetus ID Race Codes Race Delivery Type [id number] Héctor Calculation Initial Héctor Date Initial Exam Date Initial Exam Provider Initial Ultrasound Date Last Menstrual Period Date Ultra Sound Weeks Gestation 05/13/2019 10/19/2018 [email or web address] 08/06/2018 0 Eighteen To Twenty Week Héctor [...] Weight in lbs Pre/Post Dialysis Refused Weight 134.59808920643 BP Diastolic BP Location Tested BP Systolic BP Type 80 108 sitting Fetus Heart Rate Present Fetus Movement Comments Flowsheet Date 10/26/2018 Regalado Score Blood Edema Fundus Height Fundus Units Glucose Ketones Leukocytes Nitrite Labor Signs Protein Cervic Dilation Cervic Effacement Cervic Station Type Weight in lbs Pre/Post Dialysis Refused Weight 138.591167242696 BP Diastolic BP Location Tested BP Systolic BP Type 72 110 sitting Fetus Heart Rate Present Fetus Movement Comments Flowsheet Date 11/09/2018 Regalado Score Blood Edema Fundus Height Fundus Units Glucose Ketones Leukocytes Nitrite Labor Signs Protein Cervic Dilation Cervic Effacement Cervic Station Type Weight in lbs Pre/Post Dialysis Refused With clothes 132.885665284329 BP Diastolic BP Location Tested BP Systolic BP Type 78 R arm 122 sitting Fetus Heart Rate Present Fetus Movement Comments Flowsheet Date 11/09/2018 Regalado Score Blood Edema Fundus Height Fundus Units Glucose Ketones Leukocytes Nitrite Labor Signs Protein Cervic Dilation Cervic Effacement Cervic Station Type Weight in lbs Pre/Post Dialysis Refused Weight 136.305907518209 BP Diastolic BP Location Tested BP Systolic BP Type 60 L arm 108 sitting Fetus Heart Rate Present Fetus Movement Comments Flowsheet Date 11/30/2018 Regalado Score Blood Edema Fundus Height Fundus Units Glucose Ketones Leukocytes Nitrite Labor Signs Protein Cervic Dilation Cervic Effacement Cervic Station Type Weight in lbs Pre/Post Dialysis Refused Weight 142.211976621298 BP Diastolic BP Location Tested BP Systolic [...] At Estimated Date of Delivery false Thalassemia (Bangladeshi, Swedish, Mediterranean, Or Background): MCV < 80 false Neural Tube Defect (Meningom yelocele, Spina Bifida, Or Anencephaly) false Congenital Heart Defect false Down Syndrome false Tiburcio-Sachs (eg, Sabianism, Cajun, Latvian-[place]) f alse Darron Disease false Sickle Cell Disease Or Trait () false Hemophilia Or Other Blood Disorders false Muscular Dystrophy false Cystic Fibrosis false Arabella's Chorea false Mental Retardation/Autism false Other Inherited [...]
--- OUTSIDE RECORDS SUMMARY | 2024-06-06 19:43 | XMS_ITS | Referral Summary ---
Author Organization [facility] Address [address] [place] [address] Care Team Providers Care Transfer And Line Up Worker Name Role Phone Warren Phillips MD Unavailable [phone] Miscellaneous, Not In File Unavailable Unava ilable [...] 04/29/2021 Assessment & Plan (04/29/2021 8:51 AM HEALTH COACH): This may be reactive, no source of infection. -pending urine cultures, pending blood culture -sterile pyuria on urinalysis Altered mental status 03/04/2021 Diabetic ketoacidosis with c jorge associated with type 1 diabetes mellitus ([facility]) 11/16/2020 Marijuana abuse 11/16/2020 Intractable vomiting 03/13/2020 [...] with HROB and Endocrinology. Pt to call Item Repair Manager and see if they are comfortable treating [...] [] A1c likely to be rechecked via model builder display but if not, will check qtrimester Noncompliance with medication regimen 04/26/2019 Tachycardia 03/24/2019 Diabetic gastroparesis ([facility]) 02/14/2019 Depression 02/11/2019 Hypokalemia 11/08/2018 Assessment & [...] Uncontrolled type 1 diabetes mellitus with hyperglycemia ([facility]) 01/02/2018 Assessment & Plan (11/27/2019 5:40 AM [...] coma associated with type 1 diabetes mellitus ([facility]) 03/24/2019 11/20/2021 Assessment & Plan (04/29/2021 8:50 AM HEALTH COACH): Patient with multiple admissions for DKA. Patient states that she has been compliant with her insulin and has not missed any doses. Unclear trigger: Viral panel negative On admission patient's glucose was 259, anion gap of 23. Lactate normal. Urinalysis with 4+ ketones, 2+ leukocyte esterase pending the urine culture -beta hydroxybutyrate 1.5 -senior technologist -consulted Endocrine appreciate assistance possibly needing insulin [...] (02/13/2019): Added automatically from request for surgery [id number] Assessment & Plan (11/27/2019 5:37 AM CDT): [...] IV Reglan Sepsis due to gram-negative UTI ([facility]) 05/27/2018 03/06/2020 Metabolic alkalosis 01/02/2018 03/06/20 20 [...] coma associated with type 1 diabetes mellitus ([facility]) 03/06/2020 Increased lactic acid level 03/06/2020 Immunizations [...] often do you attend chur ch or methodist services? Never 01/20/2022 Do you belong to any clubs o r organizations such as yarsanism groups, unions, fraternal or athletic groups, or [...] on file Legal Sex Female 3:13 AM HEALTH COACH Gender Identity Not on file Sexual Orientation [...] BLOOD ORDERABLES Final Res ult TOMY [facility]HU ([place]) [address] [facility] [place] [address] * TSH reflex to free T4 (01/29/2022 10:34 PM CDT) TSH 1.69 0.30 - 4.20 mcIUnit/mL [facility] ([place]) Blood 01/29/2022 10:3 4 PM CDT 01/29/2022 10:41 PM CDT Result [facility] Gio Sewell MD LAB BLOOD ORDERABLES Final Re sult Performing Organization Address City/[facility]/ZIP Co de Phone Number TOMY SAHU ([place]) [address] [place] [address] [place] [address] * (ABNORMAL) Hemoglobin A1c (01/29/2022 10:34 PM CDT) Hgb A1C 6.6(H) 4.0 - 5.6 % [facility] ([place]) Estimated Average Glucose 143 mg/dL [facility]) Comment: The ADA recommends reporting an estimated Average Glucose (eAG) with all Hemoglobin A1c results using the equation derived from a study of 507 normal and diabetic adults. ??Minority populations were underrepresented and children were not included. ?? (Diabetes Care 31:3133-5382, 2008). ??The eAG is not equivalent to a fasting glucose. Blood 01/29/2022 10:3 4 PM CDT 01/29/2022 10:41 PM CDT Gio Sewell MD LAB BLOOD ORDERABLES Final Re sult TOMY SAHU [place]) 1 [facility] Department [place] [address] * Lipid panel (02/08/2017 8:46 PM CDT) Cholesterol 160 30 - 200 mg/dL [facility] Comment: Interpretive Data Desirable: ?<200 mg/dL Borderline high: ??200-239 mg/dL High: ? > or = 240 mg/dL Literature Reference: National Cholesterol Education Program (NCEP) Expert Panel on Detection, Evaluation, and Treatment of High Blood Cholesterol in Adults (Adult Treatment Panel III). ??Circulation 2004; 110:227. Current interpretive data was last revised on 2015. Triglycerides 66 0 - 150 mg/dL [facility] Comment: Interpretive Data Desirable: ? < 150 mg/dL Borderline High: ? 150 - 199 mg/dL High: ?200 - 499 mg/dL Very High: ? > or = 499 mg/dL Literature Reference: See Cholesterol Current interpretive data was last revised on 2015. HDL 57 >=40 mg/dL [facility] Comment: Interpretive Data Less than 40 mg/dL - low; A major risk factor for heart disease. Greater than or equal to 60 mg/dL - High; ??considered protective of heart disease. Literature Reference: See Cholesterol Current interpretive data was last revised on 2015. LDL, calculated 90 10 - 129 mg/dL [facility] Comment: Interpretive Data Optimal: ? < 100 mg/dL Near Optimal: ?100 - 129 mg/dL Borderline High: ?? 130 - 159 mg/dL High: ?160 - 189 mg/dL Very high: ? > or = 190 mg/dL Literature Reference: See Cholesterol Current interpretive data was last revised on 2015. Non-HDL Cholesterol 103 mg/dL [facility] Comment: Interpretive Data When triglycerides are >200 mg/dL, non-HDL C is a secondary target of therapy, with a goal 30 mg/dL higher than the identified LDL-C goal. Reference: ??See Cholesterol Reference. Current interpretive data was last revised 2015. Blood specimen (specimen) 02/08/2017 8:46 PM CDT 02/08/2017 9:09 PM CDT us Antonieta Pinto LAB BLOOD ORDERABLES Final Resul t [facility] Department [place] [address] from Last 3 Months or Most Recently Relevant to Health Maintenance Insurance [facility] Advance Directives For more information, please contact: [phone] * Full Code (Latest Code Status on [...] First Alternate Health Care Agent Care Teams Transfer And Line Up Worker Relationship Specialty Start Date End Date Teresita Marquez MD 2 [facility] [address] [place] [address] PCP - General Family Medicine 02/02/22 Warren Phillips MD Consulting Physician Gastroenterology 02/16/19 Miscellaneous, Not In File 07/23/21 Nicole Lopez DO 4 [facility] [address] [place] [address] Resident Family Medicine 11/22/21 Naomi Sanches MD 4 [facility] [address] [place] [address] Referring Physician General Surgery 11/22/21
--- OUTSIDE RECORDS SUMMARY | 2024-06-06 19:43 | XMS_ITS | Data Portability ---
Author Organization [facility] [place] Address [address] [place] [address] [place] [address] Assessment Encounter Date Assessment Date Assessment LastModified by Organization Details LastModified Time 01/28/2023 01/28/2023 Patient is 34 weeks . Discussed T1DM comanagement with MFM. Continue appointments as scheduled with ERNESTINA Darling at [facility]. [email or web address] Not available 01/28/2023 17:57:06 Plan of Treatment Reminders Order Date Submit Date Provider Last Modified By Organization Details Last Modified Time Details Appointments None recorded. Lab urinalysis, [email or web address] [address], [address], [place], [address], 12:22:58 Referral None recorded. Procedures None recorded. Surgeries None recorded. Imaging US, obstetric, follow-up [email or web address], [address], [address], [place], [address], 19:57:31 US, obstetric, biophysical profile + non-stress test [email or web address], [address], [address], [place], [address], 19:57:31 Medication Orders promethazin e 12.5 mg tablet 2022 [address] [id number], [address] [facility], [place], [place], [id number], 11:19:02 Patient TargetsNo targets recorded. Patient InstructionsNo instructions recorded. Reason for Referral None Reported. Results Created Date Observation Date Name Description Value Unit Range Abnormal Flag Note LastModifiedBy Organization Detail LastModifiedTime 01/29/20 23 01/28/2023 urina lysis , dipst ick Leukocytes Negati ve Not Available [place] [address], [place], [address], 01/28/2023 12:21:38 01/29/20 23 01/28/2023 urina lysis , dipst ick Nitrite Negati ve Not Available [place] [address], [place], [address], 01/28/2023 12:21:38 01/29/20 23 01/28/2023 urina lysis , dipst ick Urobilinogen Negati ve Not Available [place] [address], [place], [address], 01/28/2023 12:21:38 01/29/20 23 01/28/2023 urina lysis , dipst ick Protein Trace Not Available [place] [address], [place], [address], 01/28/2023 12:21:38 01/29/20 23 01/28/2023 urina lysis , dipst ick pH 5 Not Available [place] [address], [place], [address], 01/28/2023 12:21:38 01/29/20 23 01/28/2023 urina lysis , dipst ick Specific Moira 1.030 Not Available [facility] [address], [place], [address], 01/28/2023 12:21:38 01/29/20 23 01/28/2023 urina lysis , dipst ick Ketone Large Not Available [place] [address], [place], [address], 01/28/2023 12:21:38 01/29/20 23 01/28/2023 urina lysis , dipst ick Bilirubin Negati ve Not Available [place] [address], [place], [address], 01/28/2023 12:21:38 01/29/20 23 01/28/2023 urina lysis , dipst ick Glucose 1000 Not Available [place] [address], [place], [address], 01/28/2023 12:21:38 01/29/20 23 01/28/2023 urina lysis , dipst ick Appearance Cloudy Not Available [facility] [address], [place], [address], 01/28/2023 12:21:38 01/29/20 23 01/28/2023 urina lysis , dipst ick Color Dark Yellow Not Available [place] [address], [place], [address], 01/28/2023 12:21:38 01/29/20 23 01/28/2023 US, gabriela taverao w-up No observ ation record ed. nclark [place] [address], [place], [address], 01/28/2023 10:41:08 01/29/20 23 01/28/2023 US, ibis garcia, bioph ysica l profi le + non-s tress test No observ ation record ed. nclark [place] [address], [place], [address], 01/28/2023 10:41:00 01/29/20 23 01/28/2023 US, obste tric, follo w-up No observ ation record ed. bebeto Kassi [address], [place], [address], 02/02/2023 17:54:42 Result Notes None recorded. Problems Name Problem SNOMED Code Status Onset Date Resolution Date Notes Provider Name and Address Organization Details Recorded Time Pregnanc y 87152131 Completed 202202/19/2023 Manda Yousif [facility] 3 11:10:14 Type 1 diabetes mellitus 85886565 Completed followed by Tatyana DO, last A1c 6.7%, on insulin pump with CGM; hx of DKA at beginnin g of pregnanc y, frequent nausea/v omiting Manda Yousif [facility] 3 11:10:13 Ketoacid osis due to type 1 diabetes mellitus 313567842 Active 2018 Type 1 diabetes mellitus with ketoacid osis without coma;Pra ctice ID: [id number] Not Available [facility] 0 21:12:57 Pregnanc y and type 1 diabetes mellitus 761683763 Active 2018 Pre-exis ting diabetes , type 1, in pregnanc y, first trimeste r;Practi ce ID: 0001 Not Available [facility] 0 21:12:57 Finding of contents of cervix 864641491 Active 2018 Weeks of gestatio n of pregnanc y not specifie d;Practi ce ID: 0001 Not Available [facility] 0 21:12:57 Problem Notes None recorded. Procedures Surgical History Date Name Laterality Status Provider Name and Address Organization Details Recorded Time 0 Dilation and curettage completed [facility] 01/28/2023 11:05:45 9 Dilation and curettage completed [facility] 01/28/2023 11:05:39 7 section completed [facility] 01/28/2023 10:33:36 Imaging Results Imaging Date Name Status LastModified by Organiz ation Details LastModified Time 01/28/2023 US, obstetric, follow-up completed [address], [place], [address], 01/28/2023 10:41:08 01/28/2023 US, obstetric, biophysical profile + non-stress test completed [address], [place], [address], 01/28/2023 10:41:00 01/28/2023 US, obstetric, follow-up completed bebeto [address] [facility], [place], [address], 02/02/2023 17:54:42 Procedure Notes None recorded. Medical [...] THE CASE OF INSULIN PUMP FAILURE. NOTIFY [facility] DM TEAM LUPE IF PUMP FAILS [...] Updated DateTime 01/28/2023 157.48 cm 28.5 kg/m2 29932.40 972 g 130 mm[Hg] 77 mm[Hg] [facility] 10:40:10 Date Recorded Body height Body mass index (BMI) Body weight Systolic blood pressure Diastolic blood pressure Provider Name and Address Organization Details Last Updated DateTime 03/08/2023 157.48 cm 29.6 kg/m2 28292.53 g 101 mm[Hg] 69 mm[Hg] [facility] 3 11:20:49 Social History Question Answer Notes LastModified by Organizat ion Details LastModified Time Tobacco Smoking Status Never Smoker [facility] 01/28/2023 10:33:11 What Is Your Level [...] SNOMED-CT Code Diagnosis ICD10 Code Diagnosis Note [id number] Irasema Jackson [place] [address] [address] 01/28/2023 09:49:55 01/28/2023 11:26:01 Pre-existing type 1 diabetes mellitus in 358249470 O24.019 O36.8190 Z3A.34 [id number] TAHIRA BLANC MD [place] [address] [address] 01/28/2023 10:02:14 01/28/2023 17:59:18 Vomiting of 92994723 O21.9 Urinary tr act infection in 630721711 O23.43 Pre-existi ng type 1 diabetes mellitus in 066602470 O24.019 - warning signs for DKA reviewed with patient, instructed to go to ER if having intractabl e nausea/vom iting Gestation period, 34 weeks 33693695 Z3A.34 [id number] TAHIRA BLANC MD [place] [address] [address] 03/08/2023 10:55:24 03/08/2023 12:17:02 care 959158269 Z39.2 S/p RLTCS 4 weeks ago here today for a visit.1. Patient recovering well2. Plans to continue breast feeding/pu mping, would like to stop supplement ation if able to, seeing LC at [facility] office3. Interested in POPs for contracept ion at this time. Risks, benefits, and alternativ es reviewed with the patient. Slynd samples given4. Patient instructed to follow up in 1 year for well woman exam unless need arises prior depression 58 630987 F53.0 - EPDS 19- denies SI/HI- starting counseling with [facility] next week- not interested in starting medical therapy at this time, will see how she feels after starting counseling Pre-existi ng type 1 diabetes mellitus in 337354765 O24.019 - warning signs for DKA reviewed with patient, instructed to go to ER if having intractabl e nausea/vom iting Pre-eclampsia 821060714 O14.15 Health Concerns Section Related Observation LastModified by Organization Detai ls LastModified Time None Recorded Concern Status LastModified by Organization Details LastModified Time None Recorded Advance Directives Directive None Recorded Payers Encounter Date Sequence Insurance Name Policy Number Policy Garcia Covered Member ID Garcia Member ID Guarantor Name 01/28/2023 1 [place] [facility] Karina Fuchs [id number] Karina Fuchs 01/28/2023 1 [place] [facility] Karina Fuchs [id number] Karina Fuchs 03/08/2023 1 [place] [facility] Karina Fuchs [id number] Karina Fuchs Notes Date Note Type Note Provider Name and Address Organization Details Recorded Time 01/28/2023 text/html Presents to establish OB care. Has not been seen by OBGYN since October, however has followed with Dr. Neal with [facility] closely for diabetic control. EDC 03/09/23; US and echo wnl Vasovagal with laying flat, no LOC. Hx of c section; would like repeat c section. T1DM:- Diagnosed at age 12- Managed outside by Dr. Sanches (endocrinology)- Pre- regimen: insulin pump, settings unknown- Antepartum regimen: insulin pump,12-3 basal 1, 1:30, 1:33-8 basal 1.558-7p basal 17-12a basal 1, ICR 1:4- regimen: tbd from [facility]- Last dilated eye exam: 08/2022- Last EKG: has not performed- Evidence of end organ damage: elevated- echo: wnl Was in ICU for DKA at beginning of , no further admissions.Getting nauseous every 2-3days, throwing up; zofran/reglan not working, scop patch works sometimes, no heartburn, no food triggers, TAHIRA BLANC MD [address], [place], [address], [place] [facility] 01/28/2023 17:58:23 03/08/2023 text/html S/P RLTCS [...] options. ?? Starting counseling on March 16, [facility], [facility]. Feeling very overwhelmed at home, feels she is not doing enough around the house. Has good support at home, her fiance is very involved. EPDS 19. TAHIRA BLANC MD [address], [place], [address], [facility] 03/08/2023 11:57:41 OBGyn Episode Ob Episode Information Episode Created Date Number of Fetuses Patient Bloodtype Patient rh Status Prepregnancy Weight lbs Domestic Partner Domestic Partner Phone Father Name Newspaper Copy Editor Status 01/29/20 23 1 O Positive 174 CLOSED Fetus Data First Name Last Name Admitted to NICU Weight (g) Sex Living Outcome Pediatric Complications Fetus ID Race Codes Race Delivery Type [id number] Repeat Problems Problem Notes Problem Name Start Date End Date Resolution Snomed Code Not e Type 1 diabetes mellitus 34793877 followed by Rita negro [facility], last A1c 6.7%, on insulin pump with CGM; hx of DKA at beginning of , frequent nausea/vomiting Héctor Calculation Initial Héctor Date Initial Exam Date Initial Exam Provider Initial Ultrasound Date Last Menstrual Period Date Ultra Sound Weeks Gestation 03/09/2023 01/28/2023 0 Eighteen To Twenty Week Héctor Update Ultra Sound Date Fundal Height At Umbil Quickening Date Ultra Sound Latest Weeks Gestation Final Héctor Confirmed By Final Héctor Confirmed Date Final Héctor Date Ultra Sound Latest Days Gestation 0 [email or web address] 01/28/2023 03/09/20 23 0 Pre- Flowsheet Flowsheet Date 01/28/2023 Regalado Score Blood Edema Fundus Height Fundus Units Glucose Ketones Leukocytes Nitrite Labor Signs Protein Cervic Dilation Cervic Effacement Cervic Station none Type Weight in lbs Pre/Post Dialysis Refused Weight 156.974854396563 BP Diastolic BP Location Tested BP Systolic [...] Estim ated Date of Delivery false Thalassemia (Filipino, Arabic, Mediterranean, Or Background): MCV < 80 false Neural Tube Defect (Meningomyelocele, Spina Bifi da, Or Anencephaly) false Congenital Heart Defect false Down Syndrome false Tiburcio-Sachs (eg, Voodoo, Cajun, Zimbabwean-Davidson) f alse Darron Disease false Sickle Cell Disease Or Trait () false Hemophilia Or Other Blood Disorders false Muscular Dystrophy false Cystic Fibrosis false Hamblen's Chorea false Intellectual Disability/Autism false If Yes, [...] Domestic Partner Domestic Partner Phone Father Name Newspaper Copy Editor Status 01/29/20 23 1 CLOSED Fetus Data First Name Last Name Admitted to NICU Weight (g) Sex Living Outcome Pediatric Complications Fetus ID Race Codes Race Delivery Type [id number] Primary Héctor Calculation Initial Héctor Date Initial Exam [...]
--- OUTSIDE RECORDS SUMMARY | 2024-06-06 19:43 | XMS_ITS | Clinical Summary ---
Author Organization [facility] Address [address] [place] [address] Care Team Providers Care Scrap Kettle Tender Name Role Phone Warren Phillips MD Unavailable [phone] Miscellaneous, Not In File Unavailable Unava ilable [...] 04/29/2021 Assessment & Plan (04/29/2021 8:51 AM LABORATORY SAMPLE CARRIER): This may be reactive, no source of infection. -pending urine cultures, pending blood culture -sterile pyuria on urinalysis Altered mental status 03/04/2021 Diabetic ketoacidosis with c jorge associated with type 1 diabetes mellitus ([facility]) 11/16/2020 Marijuana abuse 11/16/2020 Intractable vomiting 03/13/2020 [...] with HROB and Endocrinology. Pt to call Rubber Stamp Maker and see if they are comfortable treating [...] [] A1c likely to be rechecked via counselor at law but if not, will check qtrimester Noncompliance with medication regimen 04/26/2019 Tachycardia 03/24/2019 Diabetic gastroparesis ([facility]/HCC) 02/14/2019 Depression 02/11/2019 Hypokalemia 11/08/2018 Assessment & [...] Uncontrolled type 1 diabetes mellitus with hyperglycemia ([facility]) 01/02/2018 Assessment & Plan (11/27/2019 5:40 AM [...] coma associated with type 1 diabetes mellitus ([facility]) 03/24/2019 11/20/2021 Assessment & Plan (04/29/2021 8:50 AM LABORATORY SAMPLE CARRIER): Patient with multiple admissions for DKA. Patient states that she has been compliant with her insulin and has not missed any doses. Unclear trigger: Viral panel negative On admission patient's glucose was 259, anion gap of 23. Lactate normal. Urinalysis with 4+ ketones, 2+ leukocyte esterase pending the urine culture -beta hydroxybutyrate 1.5 -special educator -consulted Endocrine appreciate assistance possibly needing [...] (02/13/2019): Added automatically from request for surgery [id number] Assessment & Plan (11/27/2019 5:37 AM CDT): [...] IV Reglan Sepsis due to gram-negative UTI ([facility]) 05/27/2018 03/06/2020 Metabolic alkalosis 01/02/2018 03/06/20 20 [...] coma associated with type 1 diabetes mellitus ([facility]) 03/06/2020 Increased lactic acid level 03/06/2020 Immunizations [...] Date Comments Depression Miscarriage Diabetes mellitus ([facility]) T1DM Diabetic ketoacidosis ([facility]) ([facility]) Cannabinoid hyperemesis syndrome Dehydration 01/02/2018 Uncontrolled type 1 diabetes mellitus with hyperglycemia ([facility]) ([facility]) 01/02/2018 Family History Medical History Relation Name [...] often do you attend chur ch or roman catholic services? Never 01/20/2022 Do you belong to any clubs o r organizations such as restoration groups, unions, fraternal or athletic groups, or [...] on file Legal Sex Female 3:13 AM LABORATORY SAMPLE CARRIER Gender Identity Not on file Sexual Orientation [...] ORDERABLES Final Res ult Performing Organization Address City/[facility]/ZIP Co de Phone Number TOMY SAHU ([place]) [address] [facility] [place] [address] * TSH reflex to free T4 (01/29/2022 10:34 PM CDT) TSH 1.69 0.30 - 4.20 mcIUnit/mL TOMY SAHU ([place]) Blood 01/29/2022 10:3 4 PM CDT 01/29/2022 10:41 PM CDT us Gio Sewell MD LAB BLOOD ORDERABLES Final Re sult Performing Organization Address [facility]/ZIP Co de Phone Number TOMY SAHU ([place]) [address] [facility] [place] [address] * (ABNORMAL) Hemoglobin A1c (01/29/2022 10:34 PM [...] children were not included. ?? (Diabetes Care 31:[id number], 2008). ??The eAG is not equivalent to a fasting glucose. Blood 01/29/2022 10:3 4 PM CDT 01/29/2022 10:41 PM CDT us Gio Sewell MD LAB BLOOD ORDERABLES Final Re sult TOMY [facility] ([place]) [address] [facility] Department [place] [address] * Lipid panel (02/08/2017 8:46 PM CDT) [...] calculated 90 10 - 129 mg/dL TOMY [facility] Comment: Interpretive Data Optimal: ? < 100 mg/dL Near Optimal: ?100 - 129 mg/dL Borderline High: ?? 130 - 159 mg/dL High: ?160 - 189 mg/dL Very high: ? > or = 190 mg/dL Literature Reference: See Cholesterol Current interpretive data was last revised on 2015. Non-HDL Cholesterol 103 mg/dL TOMY [facility] Comment: Interpretive Data When triglycerides are >200 mg/dL, non-HDL C is a secondary target of therapy, with a goal 30 mg/dL higher than the identified LDL-C goal. Reference: ??See Cholesterol Reference. Current interpretive data was last revised 2015. Blood specimen (specimen) 02/08/2017 8:46 PM CDT 02/08/2017 9:09 PM CDT us Tessacamille Pinto LAB BLOOD ORDERABLES Final Resul t [facility] [place] [address] from Last 3 Months or Most Recently Relevant to Health Maintenance Insurance [facility] IDDE [facility] Advance Directives For more information, please contact: [phone] * Full Code (Latest Code Status on [...] Agents on File Name Relationship Healthcare Agent [facility] Communication Karen Fuchs Mother First Alternate Health Care Agent Care Teams Scrap Kettle Tender Relationship Specialty Start Date End Date Teresita Marquez MD [address] [place] [address] PCP - General Family Medicine 02/02/22 Warren Phillips MD Consulting Physician Gastroenterology 02/16/19 Miscellaneous, Not In File 07/23/21 Nicole Lopez DO [address] [place] [address] Resident Family Medicine 11/22/21 Naomi Sanches MD [address] [place] [address] Referring Physician General Surgery 11/22/21
--- OUTSIDE RECORDS SUMMARY | 2024-06-06 19:44 | XMS_ITS | Clinical Summary ---
Author Organization [facility] Address [address] [place] [address] Phone Care Team Providers Care Pool Hand Name Role Phone Unavailable Primary Care Provider Unavailabl e Allergies No known active allergies Medications vit,calc76/iron/f olic (PNV 29-1 ORAL) Take by mouth. 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 120 Tablet 4 09/01/19 23 Active scopolamine (Transderm-Scop) 1 mg/72 hr patch Apply 1 Patch to skin as directed see administration instructions for 10 doses. 10 Patch 3 12/10/19 23 Active Acetone, Urine, Test (Ketostix) StripIndications: Supervision of high risk in second trimester,Type 1 diabetes mellitus without complication ([facility]) Use as directed. Notify MD for moderate to large ketones. 100 Strip 1 12/10/19 23 Active promethazine (PHENERGAN) 25 mg Suppository 10/10/19 23 Active blood sugar diagnostic Strip 1 Strip. Act shonna insulin lispro (HumaLOG) 100 unit/mL vial Up to 100U/day via insulin pump 30 mL 5 01/21/20 23 Active Insulin Syringe-Needle U-100 0.3 mL 31 gauge x 09/15 SyringeIndication s:Pre-existing type 1 diabetes mellitus in in third trimester To be used to inject insulin 5-8 times daily in the case of insulin pump failure. Notify M DM team LUPE if pump fails 100 Each 1 01/28/20 Active insulin lispro (HumaLOG KwikPen Insulin) 100 unit/mL pen syringeIndication s:Type 1 diabetes mellitus with hyperglycemia (CMS/HCC) Inject 1 unit of insulin for every 10g of carbs before meals. Inject an additional unit of insulin for every 40mg/dL greater than 110 mg/dL before your meals. Max daily units: 100 15 mL 3 02/19/20 Active Lantus Solostar U-100 Insulin 100 unit/mL (3 mL) solution for injectionIndicati ons:Type 1 diabetes mellitus with hyperglycemia (CMS/HCC) Inject 8 units under the skin in the morning and 8 units at night. 15 mL 4 03/19/20 Active Active Problems Problem Noted Date Diagnosed [...] with HROB and Endocrinology. Pt to call Senior Business Development Analyst and see if they are comfortable treating [...] [] A1c likely to be rechecked via anvilsmith but if not, will check qtrimester Diabetic [...] Encounters Date Type Department Care Team Description 05/24/2024 External Device Data [facility] ABSTRACTION Provider, Abstract 05/24/2024 External Device Data [facility]STRACTION Provider, Abstract 05/09/2024 External Device Data [facility] Provider, Abstract 05/05/2024 [facility] Maternal and Medicine [facility] [address], [place] [address] Kathryn Coppola Appointment Notification 05/04/2024 [facility] and [facility] [place] [facility] [address], [place] [phone] Juhi Mathews MD Appointment Notification 04/17/2024 Telephone [facility] Maternal and Medicine [facility] [place] [facility] [address] [place] [address] Nya Gan, DIANDRA Diabetes 03/14/2024 External Device Data [facility] ABSTRACTION Provider, Abstract 03/13/2024 Abstract [facility] [address] [place] [phone] Stacey Tripathi RN 03/13/2024 Abstract [facility] [address] [place] [phone] Jasmina Souza 03/07/2024 Telephone [facility] Maternal Medicine [address] [place] [address] Kelli Neal MD Diabetes from Last 3 Months Immunizations Immunization Administration Dates Next Due (ADACEL/BOOSTRIX)(10 YR UP) [...] at Not on file Legal Sex Female 9:28 AM CDT Gender Identity Not on file Sexual [...] 3 - 3-dose series) 1996 1996, 1996 DIABETES ANNUAL FOOT EXAM 2014 DIABETES ANNUAL [...] 5.7(H) <5.7 % 01/30/2023 8:43 AM CDT [facility] EST. AVG GLUCOSE, A1C 117 mg/dL 01/30/2023 8:43 AM CDT [facility] Blood Venipuncture / Unknown 01/30/2023 3:57 AM CDT 01/30/2023 4:01 AM CDT Narrative [facility] - 01/30/2023 8:43 AM CDT HGB A1C INTERPRETATION NORMAL: ? <5.7% PRE-DIABETES: 5.7 - 6.4% DIABETES: ? 6.5% OR GREATER Manuel Goldstein MD CHEMISTRY ORDERABLES Final Resul t [facility]# [id number] [address] [facility] [address] from Last 3 Months or Most Recently Relevant to Health Maintenance Insurance [place] [facility] [facility] RX [employer] Commercial RX [employer] PL[employer] (INTERNAL) [facility] RX [employer] Commercial RX [employer] Commercial [[id number] Advance Directives For more information, please contact: [phone] * Full Code (Latest Code Status on File) Date Activated Date Inactivated Comments 02/07/2023 8:45 AM 02/13/2023 3:42 PM * Full Code Date Activated Date Inactivated Comments 02/07/2023 8:43 AM 02/07/2023 8:45 AM * Full Code Date Activated Date Inactivated Comments 01/29/2023 4:27 PM 02/07/2023 8:43 AM
--- OUTSIDE RECORDS SUMMARY | 2024-06-06 19:44 | XMS_ITS | Clinical Summary ---
Author Organization [facility] [employer] Address [address] [place] [address] Care Team Providers Care Remote Broadcast Engineer Name Role Phone Jolanta Freeman MD Primary Care Provider [phone] Source Comments [facility] [employer],non-owned Affiliates and Associated Physician Practices is amultiple site organization consisting of ambulatory clinics and hospital sitesin [place], [place], [place] and [place]. This disclosure is being madepursuant to the Care Everywhere program and may not contain all information available regarding this patient. Last updated 18.[facility] [employer] Allergies No known active allergies Medications * [...] Date Last Done Comments PAP SMEAR 1996 HEPATITIS C SCREENING 06/24/2014 DTAP/TDAP/TD VACCINES (1 - Tdap) 2015 HEPATITIS B VACCINE (1 of 3 - 19+ 3-dose series) 2015 PNEUMOCOCCAL VACCINE (1 of 2 - PCV) 2015 DIABETES RETINOPATHY SCREENING 02/07/2018 DIABETES-FOOT EXAM WITH MONOFILAMENT 02/07/2018 DIABETES-HGB A1C 01/08/2019 10/08/2018, 01/2018, 11/28/2017, Additional history exists DIABETES-SERUM CREATININE 10/10/20192018, 10/08/2018, 10/08/2018, Additional history exists COVID-19 VACCINE ( - season) 2024 INFLUENZA VACCINE (#1) 2024 01/01/2017 DEPRESSION SCREENING 05/03/2024 DIABETES - URINE PROTEIN SCREENING 05/03/2024 ZOSTER VACCINE (1 of 2) 2046 HIV SCREENING Completed 10/07/2018 HIB VACCINE Aged Out No longer eligi ble based on patient's age to complete this topic HPV VACCINE Aged Out No longer eligi ble based on patient's age to complete this topic MENINGOCOCCAL (Group B) VACCINE Aged Out No longer eligible based on [...] - 106 mg/dL 10/09/2018 6:[address] [facility] Sodium 134(L) 136 - 145 mmol/L 10/09/2018 6:[address] [facility] Potassium 4.1 3.5 - 5.1 mmol/L 10/09/2018 6:[address] [facility] Chloride 99 98 - 107 mmol/L 10/09/2018 6:[address] [facility] CO2 26 23 - 31 mmol/L 10/09/2018 6:[address] [facility] Calcium 8.9 8.4 - 10.2 mg/dL 10/09/2018 6:[address] [facility] Anion Gap 9 8 - 16 mmol/L 10/09/2018 6:[address] [facility] BUN 2(L) 7 - 18.7 mg/dL 10/09/2018 6:[address] [facility] Creatinine 0.44(L) 0.55 - 1.02 mg/dL 10/09/2018 6:[address] [facility] Alkaline Phosphatase 69 40 - 150 U/L 10/09/2018 6:[address] [facility] ALT 9(L) 13 - 61 U/L 10/09/2018 6:[address] [facility] AST 12 5 - 34 U/L 10/09/2018 6:[address] [facility] Protein Total 6.1(L) 6.4 - 8.3 gm/dL 10/09/2018 6:[address] [facility] Albumin 3.6 3.5 - 5.2 gm/dL 10/09/2018 6:[address] [facility] Bilirubin Total 0.7 0.2 - 1.0 mg/dL 10/09/2018 6:[address] [facility] eGFR by MDRD >60 >60 mL/min/1.7 3m2 10/09/2018 6:[address] [facility] eGFR by MDRD >60 >60 mL/min/1.7 3m2 10/09/2018 6:[address] [facility] Blood BLOOD SPECIMEN / Unknown Lab Venipuncture / Unknown 10/09/2018 5:22 AM CDT 10/09/2018 5:[address] [facility] - 10/09/2018 6:05 AM CDT Attention clinician: BUN Reference Range has changed. Suni Barrera MD LAB - CHEMISTRY O RDERAETTA [facility] [address] [place] [phone] * (ABNORMAL) HEMOGLOBIN A1C (10/08/2018 12:52 AM CDT) Pathologist [facility] Hemoglobin A1c 10.3(H) 4.0 - 6.1 % 10/08/2018 1:[address] [facility] Estimated Average Glucose 249 mg/dL 10/08/2018 1:[address] [facility] Blood BLOOD SPECIMEN / Unknown Lab Venipuncture / Unknown 10/08/2018 12:52 AM CDT 10/08/2018 12:57 AM CDT [facility] - 10/08/2018 1:18 AM CDT Attention clinician: ??Reference Range has changed. Cody Palmer MD LAB - CHEMISTRY [place]Y [place]ONG Performing Organization Address City/[facility]/ZIP Co de Phone Number [facility] [address] [place] [phone] * HIV-1 HIV-2 ANTIBODY + HIV P24 AG PANEL (10/07/2018 8:53 PM CDT) Pathologist [facility] HIV1/2 Ab + P24 Ag Non Reactive Non Reactive 10/07/2018 9:[address] [facility] Blood BLOOD SPECIMEN / Unknown Lab Venipuncture / Unknown 10/07/2018 8:53 PM CDT 10/07/2018 8:59 PM CDT [facility] - 10/07/2018 9:41 PM CDT No Laboratory evidence of HIV infection. Franchesca Orellana MD LAB - CHEMISTR Y ORDERABLES [facility] [address] [place] [address] from Last 3 Months or Most Recently [...] 9:40 PM 11/30/2017 4:07 PM Care Teams Remote Broadcast Engineer Relationship Specialty Start Date End Date Jolanta Freeman MD PCP - General Pediatrics 05/24/13
--- OUTSIDE RECORDS SUMMARY | 2024-06-06 19:44 | XMS_ITS | Patient Health Summary ---
Author Organization [facility] [employer] Address [address] [place] [address] Care Team Providers Care Inspector Eyeglass Frames Name Role Phone Jolanta Freeman MD Primary Care Provider + [phone] Note from [facility],non-owned Affiliates and Associated Physician Practices is amultiple site organization consisting of ambulatory clinics and hospital sitesin [place], [place], [place] and [place]. This disclosure is being madepursuant to the Care Everywhere program and may not contain all information available regarding this patient. Last updated 18.[facility] [employer] Allergies No known active allergies Medications * [...] diabetes mellitus affecting in first trimester, antepartum ([facility]) * COMPREHENSIVE METABOLIC PANEL(Performed 10/07/2018) Performed for Type 1 diabetes mellitus with ketoacidosis without coma (HCC), 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, antepartum ([facility]) * OBSTETRIC PANEL (BEAKER)(Performed 10/07/2018) Performed for Type 1 diabetes mellitus with ketoacidosis without coma (HCC), 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, antepartum ([facility]) * GLUCOSE - POINT OF CARE(Performed [...] of113 resultswithin the time period is included. [facility] Glucose WB/POC 171(H) 70 - 106 mg/dL 10/09/2018 3:55 PM CDT [facility] Specimen Type Arterial/C apillary 10/09/2018 3:55 PM CDT [facility] Blood BLOOD SPECIMEN / Unknown 10/09/2018 3:43 PM CDT 10/09/2018 3:55 PM CDT Franchesca Orellana MD LAB - POINT OF CARE ORDERABLES Performing Organization Address City/[facility] Co de Phone Number [facility] [address] [place] [phone] * (ABNORMAL) KETONES QUALITATIVE URINE AUTO (10/09/2018 11:50 AM CDT) Only the most recent of3 resultswithin the time period is included. [facility] Ketone UA 2+(A) Negative 10/09/2018 12:23 PM CDT [facility] Urine URINE / Unknown Collection / Unknown 10/09/2018 11:50 AM CDT 10/09/2018 12:17 PM CDT Narrative [facility] - 10/09/2018 12:23 PM CDT Lauren Mckoy MD LAB - URINALYSIS ORD ERABLES Performing Organization Address City/[facility]/ZIP Co de Phone Number [facility] [address] [place] [address] * (ABNORMAL) CBC W AUTO DIFFERENTIAL (10/09/2018 5:22 AM CDT) Only the most recent of11 resultswithin the time period is included. [facility] WBC 8.6 4.4 - 10.7 x10E9/L 10/09/2018 5:45 AM CDT [facility] WBC Corrected x10E9/L 10/09/2018 5:45 AM CDT [facility] RBC 5.15 3.80 - 5.20 x10E12/L 10/09/2018 5:[facility] Hemoglobin 14.2 12.0 - 15.6 gm/dL 10/09/2018 5:45 AM [facility] Hematocrit 41.5 35.9 - 45.5 % 10/09/2018 5:45 AM [facility] MCV 80.6(L) 80.7 - 98.3 fl 10/09/2018 5:45 AM [facility] MCH 27.6 26.7 - 34.0 pg 10/09/2018 5:45 AM [facility] MCHC 34.2 30.8 - 35.9 gm/dL 10/09/2018 5:45 AM [facility] Platelet Count 420(H) 153 - 416 x10E9/L 10/09/2018 5:45 AM [facility] RDW-CV 14.2 12.1 - 14.9 % 10/09/2018 5:45 AM [facility] MPV 8.7(L) 9.4 - 12.9 fl 10/09/2018 5:45 AM [facility] Neutrophils % 51.3 44.0 - 73.0 % 10/09/2018 5:45 AM [facility] Lymphocytes % 32.5 20.0 - 43.0 % 10/09/2018 5:45 AM [facility] Monocytes % 13.8(H) 5.0 - 13.0 % 10/09/2018 5:45 AM [facility] Eosinophils % 0.1 0.0 - 6.0 % 10/09/2018 5:45 AM [facility] Basophils % 0.7 0.0 - 2.0 % 10/09/2018 5:45 AM [facility] Immature Granulocytes 1.6(H) 0 - 1 % 10/09/2018 5:45 AM [facility] Neutrophil Absolute 4.43 2.01 - 7.14 x10E9/L 10/09/2018 5:45 AM [facility] Lymphocytes Absolute 2.81 1.07 - 3.94 x10E9/L 10/09/2018 5:45 AM [facility] Monocytes Absolute 1.19(H) 0.26 - 1.07 x10E9/L 10/09/2018 5:45 AM CDT [facility] Eosinophils Absolute 0.01 0 - 0.47 x10E9/L 10/09/2018 5:45 AM CDT [facility] Basophils Absolute 0.06 0 - 0.08 x10E9/L 10/09/2018 5:45 AM CDT [facility] Immature Granulocytes Absolute 0.14(H) 0.00 - 0.06 x10E9/L 10/09/2018 5:45 AM CDT [facility] nRBC Auto 0 /100 WBC 10/09/2018 5:45 AM T [facility] Blood BLOOD SPECIMEN / Unknown Lab Venipuncture / Unknown 10/09/2018 5:22 AM CDT 10/09/2018 5:28 AM CDT Jay Ceja MD LAB - HEMATOLOGY ORD ERABLES [facility] [address] [place], [place] [id number] * (ABNORMAL) COMPREHENSIVE METABOLIC PANEL (10/09/2018 5:22 AM CDT) Only the most recent of6 resultswithin the time period is included. Glucose 124(H) 74 - 106 mg/dL 10/09/2018 6:05 AM [facility] Sodium 134(L) 136 - 145 mmol/L 10/09/2018 6:05 AM [facility] Potassium 4.1 3.5 - 5.1 mmol/L 10/09/2018 6:05 AM [facility] Chloride 99 98 - 107 mmol/L 10/09/2018 6:05 AM [facility] CO2 26 23 - 31 mmol/L 10/09/2018 6:05 AM [facility] Calcium 8.9 8.4 - 10.2 mg/dL 10/09/2018 6:05 AM [facility] Anion Gap 9 8 - 16 mmol/L 10/09/2018 6:05 AM [facility] BUN 2(L) 7 - 18.7 mg/dL 10/09/2018 6:05 AM [facility] Creatinine 0.44(L) 0.55 - 1.02 mg/dL 10/09/2018 6:05 AM CDT [facility] Alkaline Phosphatase 69 40 - 150 U/L 10/09/2018 6:05 AM CDT [facility] ALT 9(L) 13 - 61 U/L 10/09/2018 6:05 AM CDT [facility] AST 12 5 - 34 U/L 10/09/2018 6:05 AM CDT [facility] Protein Total 6.1(L) 6.4 - 8.3 gm/dL 10/09/2018 6:05 AM CDT [facility] Albumin 3.6 3.5 - 5.2 gm/dL 10/09/2018 6:05 AM CDT [facility] Bilirubin Total 0.7 0.2 - 1.0 mg/dL 10/09/2018 6:05 AM CDT [facility] eGFR by MDRD >60 >60 mL/min/1.7 3m2 10/09/2018 6:05 AM CDT [facility] eGFR by MDRD >60 >60 mL/min/1.7 2 10/09/2018 6:05 AM CDT [facility] Blood BLOOD SPECIMEN / Unknown Lab Venipuncture / Unknown 10/09/2018 5:22 AM CDT 10/09/2018 5:28 AM CDT Narrative [facility] - 10/09/2018 6:05 AM CDT Attention clinician: BUN Reference Range has changed. Suni Barrera MD LAB - CHEMISTRY O RDERABLES [facility] [address] [place] [address] * (ABNORMAL) PHOSPHORUS BLOOD (10/09/2018 5:22 AM CDT) Only the most recent of14 resultswithin the time period is included. Phosphorus 1.8(L) 2.3 - 4.7 mg/dL 10/09/2018 6:04 AM CDT [facility] Blood BLOOD SPECIMEN / Unknown Lab Venipuncture / Unknown 10/09/2018 5:22 AM CDT 10/09/2018 5:28 AM CDT Jay Ceja MD LAB - CHEMISTRY ORDE RABLES Performing Organization Address [facility]/ZIP Co de Phone Number [facility] [address] [place] [address] * (ABNORMAL) MAGNESIUM BLOOD (10/09/2018 5:22 AM CDT) Only the most recent of12 resultswithin the time period is included. Pathologist [facility] Magnesium 1.4(L) 1.6 - 2.6 mg/dL 10/09/2018 6:04 AM CDT [facility] Blood BLOOD SPECIMEN / Unknown Lab Venipuncture / Unknown 10/09/2018 5:22 AM CDT 10/09/2018 5:28 AM CDT Jay Ceja MD LAB - CHEMISTRY HANDY KONG Performing Organization Address [facility] Co de Phone Number [facility] [address] [place] [address] * EKG 12-LEAD (10/08/2018 6:28 PM CDT) Only the most recent of3 resultswithin the time period is included. [facility] Ventricular Rate 80 BPM [facility] Atrial Rate 80 BPM [facility] P-R Interval 122 ms [facility] QRS Duration ms 80 ms [facility] Q-T Interval ms 350 ms [facility] QTC Calculation (Bezet) 403 ms [facility] Calculated P [place] 67 degrees [facility] Calculated R [place] 90 degrees [facility] Calculated T [place] 59 degrees [facility] Interpretation EKG SINUS RHYTHM WITH APCS BORDERLINE ECG NO PREVIOUS ECGS AVAILABLE Confirmed by MD Rudy, Felipe ([id number]) on 10/12/2018 7:33:13 AM [facility] 10/08/2018 6:28 PM CDT 10/12/2018 7:33 AM CDT Sandra Dickerson MD ECG ORDERABLES Performing Organization Address [facility] Co de Phone Number [facility] * (ABNORMAL) HYDROXYBUTYRATE BETA (10/08/2018 4:57 PM CDT) Only the most recent of4 resultswithin the time period is included. [facility] Beta-Hydroxybu tyrate 0.6(H) <0.6 mmol/L 10/08/2018 5:27 PM CDT [facility] Blood BLOOD SPECIMEN / Unknown Lab Venipuncture / Unknown 10/08/2018 4:57 PM CDT 10/08/2018 5:01 PM CDT Narrative [facility] - 10/08/2018 5:27 PM CDT Betahydroxybutyrate comment: This test replaces Serum Acetone testing.Results 0.6-1.5 mmol/L could require medical intervention. Results >1.5 mmol/L may be indicative of diabetic ketoacidosis. Use in conjunction with Serum Glucose levels. Lauren Mckoy MD LAB - CHEMISTRY HANDY KONG [facility] Organization Address City/State/ZIP Co de Phone Number [facility] [address] [place] [address] * (ABNORMAL) BLOOD GASES ARTERIAL (10/08/2018 12:23 PM CDT) Pathologist [facility] pH Arterial 7.42 7.35 - 7.45 pH [...] Mode Room Air 10/08/2018 12:37 PM CDT [facility] RESP THERAPY Sample Site R Radial 10/08/2018 12:37 PM CDT [facility] RESP THERAPY Sample Type Arterial 10/08/2018 12:37 PM CDT [facility] RESP THERAPY Patient Educator ID [id number] 10/08/2018 12:37 PM CDT [facility] Blood, arterial ARTERIAL BLOOD SPECIMEN / Unknown 10/08/2018 12:23 PM CDT 10/08/2018 12:23 PM CDT Suni Barrera MD LAB - BLOOD GASES ORDERABLES [facility] [address] [phone] * HCG BETA BLOOD QUANTITATIVE (10/08/2018 11:42 AM CDT) hCG Quantitative 7,151.16 mIU/mL 10/09/19 19 12:52 PM CDT [facility] Blood BLOOD SPECIMEN / Unknown Lab Venipuncture / Unknown 10/08/2018 11:42 AM CDT 10/08/2018 12:09 PM CDT Narrative [facility] - 10/08/2018 12:52 PM CDT ? [...] - CHEMISTRY O EVELIA Performing Organization Address [facility] de Phone Number [facility] [address] [place] [phone] * PROTEIN URINE QUALITATIVE AUTO (10/08/2018 11:20 AM CDT) Protein UA Negative Negative 10/08/2018 11:45 AM CDT [facility] Urine URINE / Unknown Collection / Unknown 10/08/2018 11:20 AM CDT 10/08/2018 11:32 AM CDT Jay Ceja MD LAB - URINALYSIS ORD RADHABLES Performing Organization Address [facility]/ZIP Co de Phone Number [facility] [address] [place] [address] * (ABNORMAL) GLUCOSE URINE QUALITATIVE AUTO (10/08/2018 11:20 AM CDT) Glucose UA 2+(A) Negative 10/08/2018 11:45 AM CDT [facility] Urine URINE / Unknown Collection / Unknown 10/08/2018 11:20 AM CDT 10/08/2018 11:32 AM CDT Jay Ceja MD LAB - URINALYSIS ORD ERABLES Performing Organization Address City/[facility]/ZIP Co de Phone Number [facility] [address] [place] [address] * BLOOD TYPE VERIFICATION (10/08/2018 6:05 AM CDT) ABO O 10/08/2018 6:50 AM CDT [facility] Rh Type Positive 10/08/2018 6:50 AM CDT [facility] Blood Bank BLOOD SPECIMEN / Unknown Lab Venipuncture / Unknown 10/08/2018 6:05 AM CDT 10/08/2018 6:12 AM CDT Franchesca Orellana MD LAB - BLOOD BA NK ORDERABLES Performing Organization Address City/[facility] Co de Phone Number [facility] [address] [place] [address] * (ABNORMAL) HEMOGLOBIN A1C (10/08/2018 12:52 AM CDT) Only the most recent of3 resultswithin the time period is included. Hemoglobin A1c 10.3(H) 4.0 - 6.1 % 10/08/2018 1:18 AM CDT [facility] Estimated Average Glucose 249 mg/dL 10/08/2018 1:18 AM CDT [facility] Blood BLOOD SPECIMEN / Unknown Lab Venipuncture / Unknown 10/08/2018 12:52 AM CDT 10/08/2018 12:57 AM CDT Narrative [facility] - 10/08/2018 1:18 AM CDT Attention clinician: ??Reference Range has changed. Cody Palmer MD LAB - CHEMISTRY HANDY KONG Performing Organization Address [facility] Co de Phone Number [facility] [address] [place] [address] * TYPE + SCREEN PANEL (10/08/2018 12:52 AM CDT) ABO O 10/08/2018 1:33 AM CDT [facility] Rh Type Positive 10/08/2018 1:33 AM CDT [facility] Comment:History checked. Col lect retype. Antibody Screen Negative 10/08/2018 1:33 AM CDT [facility] Blood Bank BLOOD SPECIMEN / Unknown Lab Venipuncture / Unknown 10/08/2018 12:52 AM CDT 10/08/2018 12:58 AM CDT Cody Palmer MD LAB - BLOOD BANK ALONSO FORBES Performing Organization Address [facility] Co de Phone Number [facility] [address] [place] [address] * (ABNORMAL) URINALYSIS REFLEX MICROSCOPIC REFLEX CULTURE (10/07/2018 10:39 PM CDT) Color UA Yellow Straw, Yellow 10/07/2018 11:09 PM CDT [facility] Clarity UA Clear Clear 10/07/2018 11:09 PM CDT [facility] Glucose UA 3+(A) Negative 10/07/2018 11:09 PM CDT [facility] Bilirubin UA Negative Negative 10/07/2018 11:09 PM CDT [facility] Ketone UA 2+(A) Negative 10/07/2018 11:09 PM CDT [facility] Specific [place] UA 1.022 1.005 - 1.030 10/07/2018 11:09 PM CDT [facility] Blood UA Negative Negative 10/07/2018 11:09 PM CDT [facility] pH UA 6.0 5.0 - 8.0 pH 10/07/2018 11:09 PM CDT [facility] Protein UA Negative Negative 10/07/2018 11:09 PM CDT [facility] Urobilinogen UA Negative Negative mg/dL 10/07/2018 11:09 PM CDT [facility] Nitrite UA Negative Negative 10/07/2018 11:09 PM CDT [facility] Leukocyte UA Negative Negative 10/07/2018 11:09 PM CDT [facility] Urine Microscopy Urine microscopy not indicated 10/07/2018 11:09 PM CDT [facility] Reflex Status Culture not indicated 10/07/2018 11:09 PM CDT [facility] Urine URINE SPECIMEN OBTAINED BY CLEAN CATCH PROCEDURE / Unknown Collection / Unknown 10/07/2018 10:39 PM CDT 10/07/2018 10:49 PM CDT Narrative [facility] - 10/07/2018 11:09 PM CDT Cody Palmer MD LAB - URINALYSIS ORD ERABLES [facility] [address] [place] [address] * DRUG SCREEN TOX URINE PANEL (10/07/2018 10:38 PM CDT) Only the most recent of3 resultswithin the time period is included. [facility] Amphetamines Screen Urine Not Detected Not Detected 10/07/2018 11:44 PM CDT [facility] Barbiturates Screen Urine Not Detected Not Detected 10/07/2018 11:44 PM CDT [facility] Benzodiazepines Screen Urine Not Detected Not Detected 10/07/2018 11:44 PM CDT [facility] Cannabinoids Screen Urine Not Detected Not Detected 10/07/2018 11:44 PM CDT [facility] Cocaine Screen Urine Not Detected Not Detected 10/07/2018 11:44 PM CDT [facility] Methadone Screen Urine Not Detected Not Detected 10/07/2018 11:44 PM CDT [facility] Opiate Screen Urine Not Detected Not Detected 10/07/2018 11:44 PM CDT [facility] Phencyclidine Screen Urine Not Detected Not Detected 10/07/2018 11:44 PM CDT [facility] Urine URINE / Unknown Collection / Unknown 10/07/2018 10:38 PM CDT 10/07/2018 10:49 PM CDT Narrative [facility] - 10/07/2018 11:44 PM CDT This [...] URINE CHEMISTR Y ORDERABLES Performing Organization Address [facility] de Phone Number [facility] [address] [place] [phone] * SYPHILIS ANTIBODY CASCADING REFLEX (10/07/2018 8:53 PM CDT) Treponema pallidum Antibody Non Reactive Non Reactive 10/07/2018 9:41 PM CDT [facility] Comment: No Laboratory evidence of syphilis infection. ?? Note: ??Circulating antibodies may be low or undetectable in early infection. ??If recent exposure is suspected, re-draw sample in 2-4 weeks and repeat testing. Blood BLOOD SPECIMEN / Unknown Lab Venipuncture / Unknown 10/07/2018 8:53 PM CDT 10/07/2018 8:59 PM CDT Cody Palmer MD LAB - SEROLOGY ORDER RULA Performing Organization Address [facility] de Phone Number [facility] [address] [place], [place] [phone] * HIV-1 HIV-2 ANTIBODY + HIV P24 AG PANEL (10/07/2018 8:53 PM CDT) HIV1/2 Ab + P24 Ag Non Reactive Non Reactive 10/07/2018 9:41 PM CDT [facility] Blood BLOOD SPECIMEN / Unknown Lab Venipuncture / Unknown 10/07/2018 8:53 PM CDT 10/07/2018 8:59 PM CDT Narrative [facility] - 10/07/2018 9:41 PM CDT No Laboratory evidence of HIV infection. Franchesca Orellana MD LAB - CHEMISTR Y ORDERABLES Performing Organization Address [facility] Co de Phone Number [facility] [address] [place], [place] [id number] * TSH REFLEX FREE T4 (10/07/2018 8:53 PM CDT) TSH 0.4015 0.35 - 4.94 ulU/mL 10/07/2018 9:42 PM CDT [facility] Blood BLOOD SPECIMEN / Unknown Lab Venipuncture / Unknown 10/07/2018 8:53 PM CDT 10/07/2018 8:59 PM CDT Cody Palmer MD LAB - CHEMISTRY HANDY KONG Performing Organization Address [facility] de Phone Number [facility] [address] [place] [phone] * RUBELLA ANTIBODY IGG (10/07/2018 8:53 PM CDT) Rubella Antibody 1.65 Immune >0.99 index 10/10/2018 8:06 AM CDT [facility] ([facility]) Comment: ?Non-immune ? <0.90 ?Equivocal ??0.90 - 0.99 ?Immune ? >0.99 Blood BLOOD SPECIMEN / Unknown Venipuncture / Unknown 10/07/2018 8:53 PM CDT 10/07/2018 8:59 PM CDT Narrative [facility] ([facility]) - 10/10/2018 8:06 AM CDT Performed at: ??01 - [facility] [address] [place], [place] ??[id number] Hospice Community Liaison: Gregorio Ortega PhD, Phone: ??[phone] Cody Palmer MD LAB - SEROLOGY ORDER RULA Performing Organization Address City/[facility]/ZIP Co de Phone Number [facility] ([facility]) [address] [place] [address] * HEPATITIS B SURFACE ANTIGEN W RFLX CONFIRMATION (10/07/2018 8:53 PM CDT) [facility] HBsAg Non Reactive Non Reactive 10/07/2018 9:43 PM CDT [facility] Blood BLOOD SPECIMEN / Unknown Lab Venipuncture / Unknown 10/07/2018 8:53 PM CDT 10/07/2018 9:00 PM CDT Cody Palmer MD LAB - CHEMISTRY ORDE DILAN Performing Organization Address City/[facility]/ZIP Co de Phone Number [facility] [address] [place] [phone] * CARDIAC PROCEDURE ORDER (03/16/2018 8:28 AM THREADER) Only the most recent of2 resultswithin the time period is included. Narrative 03/16/2018 8:28 AM THREADER Ordered by an unspecified provider. Scanned Document [...] the time period is included. Pathologist [facility] WBC (corrected for NRBC) 5.9 10? 3 /uL 12/30/2017 7:29 AM CDT [facility] Total Cell Count 100 12/30/2017 7:29 AM [facility] Neutrophils Absolute Manual 1.36(L) 1.60 - 7.00 10? 3 /uL 12/30/2017 7:29 AM [facility] Comment:(BANDS+SEGS) x WBC = NEUT # (ANC) Lymphocyte Absolute Manual 4.13(H) 0.80 - 2.90 10? 3 /uL 12/30/2017 7:29 AM [facility] Monocytes Absolute Manual 0.41 0.14 - 0.66 10? 3 /uL 12/30/2017 7:29 AM [facility] Neutrophil % Manual 23(L) 30 - 60 % 12/30/2017 7:29 AM [facility] Lymphocyte % Manual 70(H) 20 - 45 % 12/30/2017 7:29 AM [facility] Monocytes % Manual 7 2 - 10 % 12/30/2017 7:29 AM [facility] Platelet Estimate Adequate Adequate 12/30/2017 7:29 AM [facility] Ovalocytes Occasional(A ) None 12/30/2017 7:29 AM [facility] Blood BLOOD SPECIMEN / Unknown Venipuncture / Unknown 12/30/2017 5:45 AM CDT 12/30/2017 5:48 AM CDT Iesha Dominguez Lionel [employer] L[employer] OPERATOR-MACHINE BRUSHER LAB - HEMATOLOGY ORDERABLES [facility] [address] [place] [address] * (ABNORMAL) BASIC METABOLIC PANEL (CALCIUM TOTAL) (12/30/2017 5:45 AM CDT) Only the most recent of19 resultswithin the time period is included. BUN 5(L) 7 - 26 mg/dL 12/30/2017 6:05 AM [facility] Creatinine 0.4(L) 0.6 - 1.2 mg/dL 12/30/2017 6:05 AM [facility] Sodium 136 136 - 145 mmol/L 12/30/2017 6:05 AM [facility] Comment:Checked Potassium 3.7 3.5 - 4.5 mmol/L 12/30/2017 6:05 AM [facility] Chloride 102 98 - 107 mmol/L 12/30/2017 6:05 AM [facility] CO2 25 22 - 29 mmol/L 12/30/2017 6:05 AM [facility] Glucose 174(H) 70 - 115 mg/dL 12/30/2017 6:05 AM [facility] Calcium 8.4 8.4 - 10.2 mg/dL 12/30/2017 6:05 AM [facility] Anion Gap 13 8 - 18 12/30/2017 6:05 AM [facility] BUN/Creatinine Ratio 13 7 - 23 12/30/2017 6:05 AM [facility] Osmolality Calculated 283 270 - 300 mOsm/kg 12/30/2017 6:05 AM [facility] eGFR >60 >60 mL/min/1.7 3 m2 12/30/2017 6:05 AM [facility] Blood BLOOD SPECIMEN / Unknown Venipuncture / Unknown 12/30/2017 5:45 AM CDT 12/30/2017 5:48 AM CDT Cl Del Valle DO LAB - CHEMISTRY OR DERABLES Performing Organization Address City/State/[facility] Co de Phone Number [facility] [address] [place] [address] * CELIAC DISEASE PROFILE W RFLX (12/28/2017 6:21 AM CDT) Endomysial Antibody IgA Negative Negative 12/29/2017 4:24 PM CDT [facility] ([facility]) TTG Antibody IgA <2 0 - 3 U/mL 12/30/19 18 4:24 PM CDT [facility] ([facility]) Comment: ?Negative ?0 - ??3 ?Weak Positive ?? 4 - 10 ?Positive ? >10 Tissue Transglutaminase (tTG) has been identified as the endomysial antigen. ??Studies have demonstr- ated that endomysial IgA antibodies have over 99% specificity for gluten sensitive enteropathy. IgA Quantitative 147 87 - 352 mg/dL 12/29/2017 4:24 PM CDT [facility] ([facility]) Blood BLOOD SPECIMEN / Unknown Venipuncture / Unknown 12/28/2017 6:21 AM CDT 12/28/2017 6:27 AM CDT Narrative [facility] ([facility]) - 12/29/2017 4:24 PM CDT Performed at: ??01 - [facility] [address], [place] ??[id number] [facility] Liaison: Gregorio Ortega PhD, Phone: ??[phone] Cl Del Valle DO LAB - CHEMISTRY OR DERABLES Performing Organization Address [facility] de Phone [facility]) [address] [place] [address] * TSH (12/28/2017 6:21 AM CDT) Only the most recent of2 resultswithin the time period is included. Pathologist [facility] TSH 1.573 0.350 - 4.940 uIU/mL 12/28/2017 7:07 AM CDT [facility] Blood BLOOD SPECIMEN / Unknown Venipuncture / Unknown 12/28/2017 6:21 AM CDT 12/28/2017 6:26 AM CDT Cl Del Valle DO LAB - CHEMISTRY OR DERABLES Performing Organization Address [facility] de Phone Number [address] [phone] * PT-INR [facility] (12/26/2017 6:11 AM CDT) Only the most recent of2 resultswithin the time period is included. Pathologist [facility] PT 14.3 12.1 - 14.8 Seconds 12/26/2017 6:46 AM T [facility] INR 1.1 See Comment 12/26/2017 6:46 AM [facility] Comment: The suggested therapeutic range for standard coumadin (warfarin) therapy is an INR of 2.0-3.0. For high-risk patients (Mechanical Mitral Valve Prosthesis, etc.), the suggested prophylactic therapeutic range is an INR of 2.5-3.5. Blood BLOOD SPECIMEN / Unknown Venipuncture / Unknown 12/26/2017 6:11 AM CDT 12/26/2017 6:20 AM CDT Connie Loya MD LAB - COAGULATION OR DERABLES Performing Organization Address City/[facility]/ZIP Co de Phone Number [address] [phone] * LACTIC ACID BLOOD (12/26/2017 6:11 AM CDT) Only the most recent of3 resultswithin the time period is included. Pathologist [facility] Lactic Acid-Stat 1.4 0.5 - 2.2 mmol/L 12/26/2017 6:52 AM [facility] Blood BLOOD SPECIMEN / Unknown Venipuncture / Unknown 12/26/2017 6:11 AM CDT 12/26/2017 6:20 AM CDT Connie Loya MD LAB - CHEMISTRY ORDE RABLES Performing Organization Address City/[facility]/ZIP Co de Phone Number [address] [phone] * (ABNORMAL) BLOOD GASES JACLYN (12/26/2017 1:24 AM CDT) Only the most recent of2 resultswithin the time period is included. pH Mixed Venous 7.23(L) 7.30 - 7.40 12/26/2017 2:24 AM [facility] pCO2 Mixed Venous 28(L) 40 - 46 mmHg 12/26/2017 2:24 AM [facility] pO2 Mixed Venous 52(H) 35 - 42 mmHg 12/26/2017 2:24 AM [facility] HCO3 Mixed Venous 11.3(L) 22.0 - 26.0 mmol/L 12/26/2017 2:24 AM [facility] TCO2 Mixed Venous 12.1(L) 25.0 - 29.0 mmol/L 12/26/2017 2:24 AM [facility] Base Excess Venous -14.7(L) -2.0 - 2.0 mmol/L 12/26/2017 2:24 AM [facility] Hemoglobin Mixed Venous 13.1 12.0 - 15.5 g/dL 12/26/2017 2:24 AM [facility] Oxyhemoglobin Mixed Venous 80.1(H) 66.0 - 77.0 % 12/26/2017 2:24 AM [facility] Carboxyhemoglobin Venous 0.3 0.0 - 3.0 % 12/26/2017 2:24 AM [facility] Methemoglobin 0.5 0.0 - 2.0 % 12/26/2017 2:24 AM [facility] FI O2 Mixed Venous 21.0 % 2017 2:24 AM [facility] Blood BLOOD SPECIMEN / Unknown Venipuncture / Unknown 12/26/2017 1:24 AM CDT 12/26/2017 2:22 AM CDT Dannie Lafleur MD LAB - BLOOD GASES ORDERABLES Performing Organization Address [facility]/State/[facility] Co de Phone Number [facility] [address] [place] [address] * XR CHEST 2VW (12/26/2017 12:53 AM CDT) Anatomical Region Laterality Modality Chest Radiographic Sarayh ging 12/26/2017 1:58 AM CDT Impressions 12/26/2017 6:56 AM CDT FINDINGS/IMPRESSION: Lungs are clear and well-expanded. ??There is no focal consolidation, pleural effusion, or pneumothorax. The cardiomediastinal silhouette is normal. This report was dictated by Jd Gray M.D. (residential air sealing technician). I, Dr. EDGAR GUTIERREZ MD have personally [...] report was dictated by Jd Gray M.D. (residential air sealing technician). I, Dr. EDGAR GUTIERREZ MD have personally reviewed and interpreted this examination/study. This report was electronically signed by EDGAR GUTIERREZ MD on12/26/2017 6:56 AM . 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 - POINT OF C ARE ORDERABLES [facility] POCT TESTING [address] [place] [address] * (ABNORMAL) URINALYSIS NO MICROSCOPIC NO CULTURE (12/25/2017 8:55 PM CDT) Color UA Yellow Straw, Yellow, Colorless, Light Yellow 12/25/2017 9:16 PM CDT [facility] Clarity UA Clear Clear 12/25/2017 9:16 PM CDT [facility] Specific [place] UA 1.027 1.001 - 1.030 12/25/2017 9:16 PM CDT [facility] pH UA 5.5 5.0 - 8.0 12/25/2017 9:16 PM CDT [facility] Protein UA 20(A) <=20 mg/dL 12/25/2017 9:16 PM T [facility] Glucose UA >1000(A) Negative mg/dL 12/25/2017 9:16 PM T [facility] Ketone UA >80(A) Negative mg/dL 12/25/2017 9:16 PM T [facility] Bilirubin UA Negative Negative mg/dL 12/25/2017 9:16 PM CDT [facility] Blood UA Negative Negative 12/25/2017 9:16 PM T [facility] Nitrite UA Negative Negative 12/25/2017 9:16 PM T [facility] Leukocyte Esterase Trace(A) Negative 12/25/2017 9:16 PM T [facility] Urobilinogen UA <2.0 <2.0 mg/dL 8 9:16 PM CDT [facility] Urine URINE SPECIMEN OBTAINED BY CLEAN CATCH PROCEDURE / Unknown Collection / Unknown 12/25/2017 8:55 PM CDT 12/25/2017 8:59 PM CDT Lamar SMYTH LAB - URINALYSIS ORDERABLES [address] [phone] * (ABNORMAL) LIPASE BLOOD (12/25/2017 7:58 PM CDT) Only the most recent of2 resultswithin the time period is included. Lipase 5(L) 8 - 78 Units/L 12/25/2017 9:58 PM CDT [facility] Blood BLOOD SPECIMEN / Unknown Venipuncture / Unknown 12/25/2017 7:58 PM CDT 12/25/2017 8:03 PM CDT [facility] LAB - CHEMISTRY ORDERABLES Performing Organization Address City/[facility]/ZIP Co de Phone Number [address] [phone] * (ABNORMAL) RENAL FUNCTION PANEL (12/10/2017 7:53 AM CDT) Only the most recent of2 resultswithin the time period is included. Glucose 69(L) 74 - 106 mg/dL 12/10/2017 8:13 AM CDT [facility] Sodium 141 136 - 145 mmol/L 12/10/2017 8:13 AM CDT [facility] Potassium 3.2(L) 3.5 - 5.1 mmol/L 12/10/2017 8:13 AM CDT [facility] Chloride 107 98 - 107 mmol/L 12/10/2017 8:13 AM CDT [facility] CO2 24 22 - 31 mmol/L 12/10/2017 8:13 AM CDT [facility] Calcium 7.5(L) 8.5 - 10.1 mg/dL 12/10/2017 8:13 AM CDT [facility] Anion Gap 10 8 - 16 mmol/L 12/10/2017 8:13 AM CDT [facility] BUN 3(L) 7 - 21 mg/dL 12/10/2017 8:13 AM CDT [facility] Creatinine 0.31(L) 0.50 - 1.30 mg/dL 12/10/2017 8:13 AM CDT [facility] Albumin 2.8(L) 3.4 - 5.0 gm/dL 12/10/2017 8:13 AM CDT [facility] Phosphorus 4.4 2.5 - 4.9 mg/dL 12/10/2017 8:13 AM CDT [facility] eGFR by MDRD >60 >60 mL/min/1.7 3m2 12/10/2017 8:13 AM CDT [facility] eGFR by MDRD >60 >60 mL/min/1.7 3m2 12/10/2017 8:13 AM CDT [facility] Blood BLOOD SPECIMEN / Unknown Venipuncture / Unknown 12/10/2017 7:53 AM CDT 12/10/2017 7:53 AM CDT Joelle Petty MD LAB - CHEMISTRY HANDY KONG [facility] Organization Address City/State/ZIP Co de Phone Number [facility] [address] [place] [address] * (ABNORMAL) PROCALCITONIN LEVEL (12/09/2017 9:07 PM CDT) Procalcitonin 0.26(H) <=0.10 ng/mL 12/10/2017 1:17 PM CDT [facility] Blood BLOOD SPECIMEN / Unknown Venipuncture / Unknown 12/09/2017 9:07 PM CDT 12/09/2017 10:09 PM CDT Narrative [facility] - 12/10/2017 1:17 PM CDT The [...] Change in Procalcitonin Calculator is available at [email or web address] ?? If clinical picture has not improved and PCT remains high, reevaluate and consider treatment failure or other causes. Abdirahman Bruce MD LAB - CHEMISTRY HANDY KONG [facility] Organization Address City/State/ZIP Co de Phone Number [facility] [address] [place] [address] * TROPONIN I (12/09/2017 4:23 PM CDT) Troponin I <0.015 0.000 - 0.049 ng/mL 12/09/2017 6:47 PM CDT [facility] Blood BLOOD SPECIMEN / Unknown Venipuncture / Unknown 12/09/2017 4:23 PM CDT 12/09/2017 4:37 PM CDT Narrative [facility] - 12/09/2017 6:47 PM CDT Note: [...] - CHEMISTRY HANDY KONG Performing Organization Address City/[facility]/ZIP Co de Phone Number [facility] [address] [place] [address] * CULTURE VRE (12/09/2017 4:23 PM CDT) Pathologist [facility] Culture Negative for vancomycin-resi stant Enterococci (VRE) [place] 12/11/2017 6:[address] [facility] Microbiology ENTIRE RECTUM / Unknown Collection / Unknown 12/09/2017 4:23 PM CDT 12/09/2017 4:36 PM CDT Satinder Landry MD LAB - MICROBIOLOGY O RDERAETTA [facility] [address] [phone] * CULTURE MRSA (12/09/2017 4:23 PM CDT) Only the most recent of2 resultswithin the time period is included. Culture Negative for methicillin-resist ant Staphylococcus aureus (MRSA) [place] 12/11/2017 6:04 AM CDT [facility] Microbiology ENTIRE RECTUM / Unknown Collection / Unknown 12/09/2017 4:23 PM CDT 12/09/2017 4:36 PM CDT Satinder Landry MD LAB - MICROBIOLOGY O RDERABLES [facility] [address] [place] [address], [facility] [phone] * (ABNORMAL) CBC W/O DIFFERENTIAL (11/30/2017 3:31 AM CDT) Only the most recent of2 resultswithin the time period is included. WBC 6.6 3.5 - 10.5 10? 3 /uL 11/30/2017 4:06 AM [facility] RBC 4.24 3.90 - 5.00 10? 6 /uL 11/30/2017 4:06 AM [facility] Hemoglobin 11.9(L) 12.0 - 15.5 g/dL 11/30/2017 4:06 AM [facility] Hematocrit 34.0(L) 35.0 - 45.0 % 11/30/2017 4:06 AM [facility] MCV 80.2(L) 81.0 - 97.0 fL 11/30/2017 4:06 AM [facility] MCH 28.1 28.0 - 34.0 pg 11/30/2017 4:06 AM [facility] MCHC 35.0 32.0 - 36.0 g/dL 11/30/2017 4:06 AM [facility] Platelet Count 324 150 - 400 10? 3 /uL 11/30/2017 4:06 AM [facility] RDW-SD 39.0 36.0 - 50.0 fL 11/30/2017 4:06 AM [facility] RDW-CV 13.4 11.2 - 14.8 % 11/30/2017 4:06 AM [facility] MPV 8.7(L) 9.3 - 12.8 fL 11/30/2017 4:06 AM [facility] Blood BLOOD SPECIMEN / Unknown Lab Venipuncture / Unknown 11/30/2017 3:31 AM CDT 11/30/2017 3:57 AM CDT Lucas Carrera MD LAB - HEMATOLOGY ORDERABLES Performing Organization Address [facility] Co de Phone Number [address] [phone] * (ABNORMAL) ALBUMIN BLOOD (11/30/2017 3:31 AM CDT) Albumin 3.2(L) 3.4 - 5.0 g/dL 11/30/2017 4:19 AM CDT [facility] Blood BLOOD SPECIMEN / Unknown Lab Venipuncture / Unknown 11/30/2017 3:31 AM CDT 11/30/2017 3:57 AM CDT Lewis Garcia MD LAB - CHEMISTRY O RDERABLES Performing Organization Address [facility] Co de Phone Number [address] [phone] * (ABNORMAL) CORTISOL BLOOD AM (11/29/2017 9:08 AM CDT) Only the most recent of4 resultswithin the time period is included. Cortisol AM 28.7(H) 3.7 - 19.4 mcg/dL 11/29/2017 2:21 PM CDT [facility] Blood BLOOD SPECIMEN / Unknown Venipuncture / Unknown 11/29/2017 9:08 AM CDT 11/29/2017 9:50 AM CDT Lucas Carrera MD LAB - CHEMISTRY ORDERABLES Performing Organization Address [facility] Co de Phone Number [address] [phone] * ACTH (11/29/2017 8:27 AM CDT) ACTH 30.1 7.2 - 63.3 pg/mL 11/30/2017 1:12 PM CDT [facility] ([facility]) Comment:ACTH reference inter tommie for samples collected between 7 and 10 AM. Blood BLOOD SPECIMEN / Unknown Venipuncture / Unknown 11/29/2017 8:27 AM CDT 11/29/2017 8:30 AM CDT N[facility]ative [facility] ([facility]) - 11/30/2017 1:12 PM CDT Performed at: ??01 - [facility] [address] [place], [place] ??[id number] Hospice Community Liaison: Gregorio Ortega PhD, Phone: ??[phone] Lucas Carrera MD LAB - CHEMISTRY ORDERABLES Performing Organization Address City/[facility]/ZIP Co de Phone Number [facility] ([facility]) [address] [place] [address] * CULTURE BLOOD (11/28/2017 10:30 PM CDT) Only the most recent of2 resultswithin the time period is included. Pathologist [facility] Culture No growth day 5 [place] 12/04/2017 2:[address] [facility] Blood PERIPHERAL BLOOD / Unknown Venipuncture / Unknown 11/28/2017 10:30 PM CDT 11/28/2017 10:37 PM CDT Lucas Carrera MD LAB - MICROBIOLO GY ORDERABLES Performing Organization Address City/[facility]/ZIP Co de Phone Number [facility] [address] [place], [place] [address] [place] [address] * PTT [facility] (11/28/2017 10:29 PM CDT) APTT 25.2 23.0 - 38.4 Seconds 11/28/2017 10:48 PM CDT [facility] Comment: Suggested therapeutic range for full dose I.V. heparin therapy for venous thromboembolism is 66.0-91.0 seconds. Blood BLOOD SPECIMEN / Unknown Venipuncture / Unknown 11/28/2017 10:29 PM CDT 11/28/2017 10:36 PM CDT Lucas Carrera MD LAB - COAGULATIO N ORDERABLES Performing Organization Address City/[facility]/[place] [address], [facility] [phone] * ALCOHOL ETHYL BLOOD (11/28/2017 10:29 PM CDT) Interpretation Ethanol None Detected None Detected mg/dL 11/28/2017 11:44 PM CDT [facility] Comment: Ethanol levels less than 10 mg/dL are resulted as None detected . Blood BLOOD SPECIMEN / Unknown Venipuncture / Unknown 11/28/2017 10:29 PM CDT 11/28/2017 11:22 PM CDT Lucas Carrera MD LAB - CHEMISTRY ORDERABLES Performing Organization Address [facility] Co de Phone Number [address] [phone] * XR CHEST 1VW PORTABLE (11/28/2017 10:22 [...] Yellow, Colorless, Light Yellow 11/28/2017 10:53 PM [facility] Clarity UA Clear Clear 11/28/2017 10:53 PM [facility] Specific [place] UA 1.022 1.001 - 1.030 11/28/2017 10:53 PM [facility] pH UA 6.0 5.0 - 8.0 11/28/2017 10:53 PM [facility] Protein UA 20(A) <=20 mg/dL 11/28/2017 10:53 PM [facility] Glucose UA >1000(A) Negative mg/dL 11/28/2017 10:53 PM [facility] Ketone UA >80(A) Negative mg/dL 11/28/2017 10:53 PM [facility] Bilirubin UA Negative Negative mg/dL 11/28/2017 10:53 PM [facility] Blood UA Moderate(A) Negative 11/28/2017 10:53 PM [facility] Nitrite UA Negative Negative 11/28/2017 10:53 PM [facility] Leukocyte Esterase Negative Negative 11/28/2017 10:53 PM [facility] Urobilinogen UA <2.0 <2.0 mg/dL 8 10:53 PM [facility] RBC UA 65(H) 0 - 8 /HPF 11/28/2017 10:53 PM [facility] WBC UA <1 0 - 2 /HPF 11/28/2017 10:53 PM [facility] Squamous Epithelial Cells UA 1 0 - 1 /HPF 11/28/2017 10:53 PM CDT [facility] Mucus UA Occasional( A) None /LPF 11/28/2017 10:53 PM CDT [facility] Urine URINE SPECIMEN OBTAINED BY CLEAN CATCH PROCEDURE / Unknown Collection / Unknown 11/28/2017 9:48 PM CDT 11/28/2017 10:38 PM CDT Lucas Carrera MD LAB - URINALYSIS ORDERABLES Performing Organization Address City/[facility] Co de Phone Number [facility] [address] [place], [place] [address] [place] [address] * CULTURE URINE (11/28/2017 9:48 PM CDT) Culture Urine <10,000 CFU/mL urogenital cassidy [place] 11/30/2017 7:[address] [facility] Urine URINE SPECIMEN OBTAINED BY CLEAN CATCH PROCEDURE / Unknown Collection / Unknown 11/28/2017 9:48 PM CDT 11/28/2017 10:38 PM CDT Lucas Carrera MD LAB - MICROBIOLO GY ORDERABLES Performing Organization Address [facility] Co de Phone Number [facility] [address] [phone] * EKG 15-LEAD (05/29/2013 10:20 AM THREADER) Ventricular Rate 77 BPM CG MUSE Atrial Rate 77 BPM CG MUSE P-R Interval 130 ms CG MUSE QRS Duration ms 78 ms CG MUSE Q-T Interval ms 346 ms CG MUSE QTC Calculation (Bezet) 391 ms CG MUSE Calculated P [place] 30 degrees CG MUSE Calculated R [place] 87 degrees CG MUSE Calculated T [place] 48 degrees CG MUSE Interpretation EKG Sinus rhythm with marked sinus arrhythmia Normal ECG No previous ECGs available Confirmed by MD Paige, [place] ([id number]) on 05/29/2013 10:55:20 AM CG MUSE 05/29/2013 10:2 0 AM THREADER 05/29/2013 10:55 AM THREADER Narrative CG MUSE - 05/29/2013 10:55 AM THREADER Procedure Note Document, Scanned - 05/29/2013 9:34 AM CST Transcriptions Document, Scanned - 05/29/2013 9:34 AM CST Document, Scanned - 05/29/2013 10:56 AM CST Ordering Provider Unlisted MD RAFAELA QUILES CG LUCIANA * ECHO CONSULT - PEDIATRIC (05/29/2013 9:15 AM THREADER) 05/29/2013 9:15 AM THREADER Narrative [facility] - 05/29/2013 11:29 AM THREADER [facility] , Transthoracic Echocardiogram 2D, M-mode, Doppler, and Color Doppler Name: KARINA MENJIVAR MR #: [id number] Study date: 05/29/2013 Age: 17 years : 1995 Gender: Female Ht: 61.9 in / 157.2 cm Wt: 124.1 lb / 56.4 kg BSA: 1.56 m?? HR: BP: / age: AARTI: Maternal age: PITCH WORKER: ??Theodore Gibson MD PEDIATRIC ECHO PUNCHBOARD INSERTER: ??STERLING Cramer REFERRING PHYSICIAN: ??JOLANTA FREEMAN MD [...] g/m2 SV(Teich): 69.3 ml Procedure Note 05/29/2013 [facility] , Transthoracic Echocardiogram 2D, M-mode, Doppler, and Color Doppler Name: KARINA MENJIVAR MR #: [id number] Study date: 05/29/2013 Age: 17 years : 1995 Gender: Female Ht: 61.9 in / 157.2 cm Wt: 124.1 lb / 56.4 kg BSA: 1.56 m?? HR: BP: / age: AARTI: Maternal age: PITCH WORKER: Theodore Gibson MD PEDIATRIC ECHO PUNCHBOARD INSERTER: STERLING Cramer REFERRING PHYSICIAN: JOLANTA FREEMAN MD [...] 69.3 ml Tammy Freeman MD ECHO ORDERABLES [facility] [address] [place] [address] Care Teams Inspector Eyeglass Frames Relationship Specialty Start Date End Date Jolanta Freeman MD PCP - General Pediatrics 05/24/13
--- OUTSIDE RECORDS SUMMARY | 2024-06-06 19:44 | XMS_ITS | Clinical Summary ---
Author Organization [facility] Address [address] [place] [address] Phone Care Team Providers Care Burlap Man Name Role Phone Carrie Joseph Primary Care Provider [phone] Naomi Sanches MD Unavailable Allergies No known active allergies Medications Glucose Blood (BLOOD GLUCOSE TEST STRIPS) Strip 1 Strip by Does not apply route 4 times daily. 400 Each 3 08/11/19 20 Active ReliOn Pen [place] 32G X 4 MM Misc 4 times a day 400 Pen Needle 3 05/20/19 21 Active Insulin Syringe-Needle U-100 (INSULIN SYRINGE 1CC/31GX5/16 ) 31G X 5/16 1 ML Misc 4 times a day 400 Each 3 05/21/19 21 Active omeprazole (PriLOSEC) 20 MG CAPSULE DELAYED RELEASEIndicati ons:Gastroesoph ageal reflux disease with esophagitis without hemorrhage Take 1 Capsule by mouth 2 times daily (before meals). Take 30 minutes before meal with protein 180 Capsule 1 05/08/19 22 Active Continuous Blood Gluc Transmit (Dexcom G6 Transmitter) Misc 1 Each by Does not apply route every 90 days. Change transmitter every 90 days. 1 Each 3 11/01/19 22 Active insulin glargine (Lantus SoloStar) 100 UNIT/ML Solution Pen-injector 25 Units by Subcutaneous route every evening. 30 mL 1 02/07/20 22 Active omeprazole (PriLOSEC) 40 MG CAPSULE DELAYED RELEASE Take 1 Capsule by mouth daily. 12/31/19 18 Active metoclopramide (REGLAN) 10 MG Tablet TAKE 1 TABLET BY MOUTH EVERY 6 HOURS FOR NAUSEA DIRECTED 07/18/19 23 Active scopolamine (TRANSDERM-SCOP ) 1 MG/3DAYS PATCH 72 HR APPLY 1 PATCH TO THE SKIN DIRECTED EVERY 72 HOURS 06/30/19 24 Active ondansetron (ZOFRAN-ODT) 4 MG TABLET DISPERSIBLE Take 1 Tablet by mouth every 8 hours as needed for Nausea - 1st line. 10 Tablet 10/01/19 24 Active Continuous Glucose Pole Inspector (Dexcom G7 Pole Inspector) Device Check blood glucose before each meal and at bedtime 1 Each 12/02/19 24 Active Continuous Glucose Sensor (Dexcom G7 Sensor) Misc Every 10 days 9 Each 3 12/02/19 24 Active insulin lispro (HumaLOG) 100 UNIT/ML Solution INJECT UP TO 90 UNITS UNDER THE SKIN PER DAY PER INSULIN PUMP SETTINGS 90 mL 1 05/25/19 25 Active insulin lispro (HumaLOG) 100 UNIT/ML Solution INJECT UP TO 60 UNITS UNDER THE SKIN PER DAY PER INSULIN PUMP SETTINGS 60 mL 1 03/24/20 24 025 Discontin ued(Reord er) Active Problems Problem Noted Date Diagnosed Date Class 1 obesity due to exces s calories with serious comorbidity and body mass index (BMI) of 32.0 to 32.9 in adult 11/16/2019 Type 1 diabetes mellitus without complication Hypoglycemia 11/11/2018 Diabetic ketoacidosis associ ated with type 1 diabetes mellitus 01/03/2017 Hyperkalemia 01/03/2017 Hypernatremia 01/03/2017 Encounters Date Type Department Care Team Description 05/25/2024 9:15 AM TIMBER HEWER Office Visit [facility] - Endocrinology - [place] [address] [place] [address] Naomi Sanches MD Type 1 diabetes mellitus without complication (HCC) (Primary Dx); Class 1 obesity due to excess calories with serious comorbidity and body mass index (BMI) of 32.0 to 32.9 in adult; Hypoglycemia; Insulin pump titration Discharge Disposition: Discharged to home or Selfcare 05/23/2024 Travel 03/24/2024 Refill [facility] - Endocrinology - [place] [address] [place] [address] Naomi Sanches MD Medication Refill from Last [...] Sign Reading Time Taken Comments Blood Pressure 120/74 05/25/2024 9:10 AM TIMBER HEWER Pulse 107 05/25/2024 9:10 AM TIMBER HEWER Temperature 36.3 ??C (97.3 ??F) 05/25/2024 9:10 AM CS T Respiratory Rate 22 05/25/2024 9:10 AM TIMBER HEWER Oxygen Saturation 97% 05/25/2024 9:10 AM TIMBER HEWER Inhaled Oxygen Concentration - - Weight 80.3 kg (177 lb) 05/25/2024 9:10 AM TIMBER HEWER Height 157.5 cm (5' 2 ) 05/25/2024 9:10 AM TIMBER HEWER Body Mass Index 32.37 05/25/2024 9:10 AM TIMBER HEWER Plan of Treatment Upcoming Encounters Date Type Department Care Team (Late st Contact Info) Description 08/23/2024 9:45 AM CDT Office Visit [facility] - Endocrinology - [place] [address] [place] [phone] Naomi Sanches MD [address] [address] Health Maintenance Due Date Last Done Comments Diabetes: Eye Exam 1996 Hepatitis C Virus (HCV) Screening 1996 Pneumococcal Immunization Combined (1 of 2 - PCV) 2015 Diabetes: Nephropathy Screening 07/21/2018 07/21/2017, 02/03/2017, 01/03/2017 Influenza Immunization (#1) 2024 05/26/2018, 0 01/01/2017 SARS-COV-2 Immunization (2 - season) 2024 05/11/2021 Diabetes: Hemoglobin A1c 11/22/2024 025, 12/02/2023, 09/01/2023, Additional history exists Diabetes: Foot Exam 05/25/2025 05/25/2024 DTaP/Tdap/Td Immunization (7 - Td or Tdap) [...] Associated Diagnosis Comments POCT GLYCOSYLATED HEMOGLOBIN Routine 05/25/2024 9:15 AM TIMBER HEWER Type 1 diabetes mellitus without complication (HCC) CMP (COMPREHENSIVE METABOLIC PANEL) STAT 07/21/2017 9:00 PM CDT from Last 3 Months or Most Recently Relevant to Health Maintenance Results * POCT GLYCOSYLATED HEMOGLOBIN (05/25/2024 9:15 AM TIMBER HEWER) Pathologist [facility] HGB-A1C 5.4 4 - 6 % Blood 05/25/2024 9:15 AM TIMBER HEWER Naomi Sacnhes MD POINT OF CARE TESTING (MANUAL) F inal Result * (ABNORMAL) CMP (Comprehensive Metabolic Panel) (07/21/2017 9:00 PM CDT) Pathologist [facility] SODIUM 139 131 - 143 mmol/L 07/21/2017 10:05 PM CDT [facility] POTASSIUM 4.7 3.5 - 5.1 mmol/L 07/21/2017 10:05 PM CDT [facility] CHLORIDE 94(L) 100 - 110 mmol/L 07/21/2017 10:05 PM CDT [facility] CO2, VENOUS 21(L) 22 - 32 mmol/L 07/21/2017 10:05 PM CDT [facility] ANION GAP 28.7(H) 8.0 - 20.0 mmol/L 07/21/2017 10:05 PM CDT [facility] GLUCOSE 310(H) 70 - 105 mg/dL 07/21/2017 10:05 PM CDT [facility] BUN 19 10 - 31 mg/dL 07/21/2017 10:05 PM CDT [facility] CREATININE, BLOOD 0.46(L) 0.60 - 1.30 mg/dL 07/21/2017 10:05 PM CDT [facility] BUN/CREATININE RATIO 41(H) 12 - 20 ratio 07/21/2017 10:05 PM CDT [facility] TOTAL PROTEIN 8.1 6.0 - 8.3 g/dL 07/21/2017 10:05 PM CDT [facility] ALBUMIN 4.9 3.5 - 5.2 g/dL 07/21/2017 10:05 PM CDT [facility] A/G RATIO 1.5 1.0 - 2.0 07/21/2017 10:05 PM CDT [facility] CALCIUM 10.2 8.9 - 10.3 mg/dL 07/21/2017 10:05 PM CDT [facility] T BILI 0.4 0.3 - 1.2 mg/dL 07/21/2017 10:05 PM CDT [facility] SGOT (AST) 12 1 - 32 U/L 07/21/2017 10:05 PM CDT [facility] SGPT (ALT) 9 1 - 33 U/L 07/21/2017 10:05 PM CDT [facility] ALKALINE PHOSPHATASE 116(H) 35 - 105 U/L 07/21/2017 10:05 PM CDT [facility] GFR, EST. NONAFRICAN >60 >=60 07/21/2017 10:05 PM CDT [facility] GFR, EST. >60 >=60 07/21/2017 10:05 PM CDT [facility] Comment: Creatinine Clearance is the preferred criteria for selecting drug dose adjustments in renally impaired patients. ??The GFR is provided as additional pertinent clinical information. GFR is reported in mL/min/1.73 sq m. Blood specimen (specimen) Venous Catheter (IV) / Unknown 07/21/2017 9:00 PM CDT 07/21/2017 9:42 PM CDT Renzo Nuñez MD CHEMISTRY ORDERABLES Chanell l Result [facility] [address] [place] [address] from Last 3 Months or Most Recently Relevant to Health Maintenance Insurance [place] [id number] Advance Directives * Full Code (Latest Code [...] measures to stabilize the patient. Care Teams Burlap Man Relationship Specialty Start Date End Date Carrie Joseph PA [address] [address] PCP - General Adult Medicine 11/11/18 Naomi Sanches MD [address] [phone] Consulting Physician Endocrinology 05/21/20
--- OUTSIDE RECORDS SUMMARY | 2024-06-06 19:44 | XMS_ITS | Referral Summary ---
Author Organization [facility] Address [address] [place] [address] Care Team Providers Care Cribber Name Role Phone Jolanta Freeman MD Primary Care Provider + [phone] Source Comments [facility],non-owned Affiliates and Associated Physician Practices is amultiple site organization consisting of ambulatory clinics and hospital sitesin [place], [place], [place] and [place]. This disclosure is being madepursuant to the Care Everywhere program and may not contain all information available regarding this patient. Last updated 18.[facility] Allergies No known active allergies Medications * [...] COMPREHENSIVE METABOLIC PANEL (10/09/2018 5:22 AM CDT) [facility] Glucose 124(H) 74 - 106 mg/dL 10/09/2018 6:05 AM CDT [facility] Sodium 134(L) 136 - 145 mmol/L 10/09/2018 6:05 AM CDT [facility] Potassium 4.1 3.5 - 5.1 mmol/L 10/09/2018 6:05 AM CDT [facility] Chloride 99 98 - 107 mmol/L 10/09/2018 6:05 AM CDT [facility] CO2 26 23 - 31 mmol/L 10/09/2018 6:05 AM CDT [facility] Calcium 8.9 8.4 - 10.2 mg/dL 10/09/2018 6:05 AM T [facility] Anion Gap 9 8 - 16 mmol/L 10/09/2018 6:05 AM T [facility] BUN 2(L) 7 - 18.7 mg/dL 10/09/2018 6:05 AM T [facility] Creatinine 0.44(L) 0.55 - 1.02 mg/dL 10/09/2018 6:05 AM T [facility] Alkaline Phosphatase 69 40 - 150 U/L 10/09/2018 6:05 AM T [facility] ALT 9(L) 13 - 61 U/L 10/09/2018 6:05 AM T [facility] AST 12 5 - 34 U/L 10/09/2018 6:05 AM [facility] Protein Total 6.1(L) 6.4 - 8.3 gm/dL 10/09/2018 6:05 AM T [facility] Albumin 3.6 3.5 - 5.2 gm/dL 10/09/2018 6:05 AM T [facility] Bilirubin Total 0.7 0.2 - 1.0 mg/dL 10/09/2018 6:05 AM T [facility] eGFR by MDRD >60 >60 mL/min/1.7 3m2 10/09/2018 6:05 AM [facility] eGFR by MDRD >60 >60 mL/min/1.7 3m2 10/09/2018 6:05 AM [facility] Blood BLOOD SPECIMEN / Unknown Lab Venipuncture / Unknown 10/09/2018 5:22 AM CDT 10/09/2018 5:28 AM CDT Narrative [facility] - 10/09/2018 6:05 AM CDT Attention clinician: BUN Reference Range has changed. Suni Barrera MD LAB - CHEMISTRY O RDERABLES [facility] [address] [place] [address] * (ABNORMAL) HEMOGLOBIN A1C (10/08/2018 12:52 AM CDT) Hemoglobin A1c 10.3(H) 4.0 - 6.1 % 10/08/2018 1:18 AM CDT [facility] Estimated Average Glucose 249 mg/dL 10/08/2018 1:18 AM CDT [facility] Blood BLOOD SPECIMEN / Unknown Lab Venipuncture / Unknown 10/08/2018 12:52 AM CDT 10/08/2018 12:57 AM CDT Narrative [facility] - 10/08/2018 1:18 AM CDT Attention clinician: ??Reference Range has changed. Cody Palmer MD LAB - CHEMISTRY HANDY KONG Performing Organization Address City/[facility]/ZIP Co de Phone Number [facility] [address] [place], [place] [id number] * HIV-1 HIV-2 ANTIBODY + HIV P24 AG PANEL (10/07/2018 8:53 PM CDT) HIV1/2 Ab + P24 Ag Non Reactive Non Reactive 10/07/2018 9:41 PM CDT [facility] Blood BLOOD SPECIMEN / Unknown Lab Venipuncture / Unknown 10/07/2018 8:53 PM CDT 10/07/2018 8:59 PM CDT Narrative [facility] - 10/07/2018 9:41 PM CDT No Laboratory evidence of HIV infection. Franchesca Orellana MD LAB - CHEMISTR Y ORDERABLES Performing Organization Address City/[facility]/ZIP Co de Phone Number [facility] [address] [place] [address] from Last 3 Months or Most Recently [...] 9:40 PM 11/30/2017 4:07 PM Care Teams Cribber Relationship Specialty Start Date End Date Jolanta Freeman MD PCP - General Pediatrics 05/24/13
[2024-06-06 20:16] VITALS: BP 150/99; PULSE 114; RESP 15; TEMP 36.5; O2SAT 100
[2024-06-06 22:54] VITALS: BP 161/103; PULSE 114; RESP 18; TEMP 36.7; O2SAT 99
--- NOTE | 2024-06-06 22:58 | PC.NURSE ---
Accu check-110 at 2611
--- NOTE | 2024-06-06 23:13 | PC.NURSE ---
Attempted to obtain labs x 1, unsuccessful. Pt reports normally has to get US IVs when comes to ED. Will wait for pt to get to back to have someone reattempt.
[2024-06-06 23:25] LABS: Glucose Point of Care 110 mg/dl (65-105)
--- OUTSIDE RECORDS SUMMARY | 2024-06-07 00:19 | XMS_ITS | Encounter Summary ---
Author Organization [facility] Address [address] [place] [address] Care Team Providers Care Racing Manager Name Role Phone Jolanta Freeman MD Primary Care Provider + [phone] Reason for Visit * Reason Onset Date Comments MEDICATION REFILL 03/18/2018 Encounter Details Date Type Department Care Team (Late st Contact Info) Description 03/18/2018 Refill [facility] Endocrinology, Diabetes and Metabolism [address] [place] [address] Pawan Ram MD [address] [place] [address] MEDICATION REFILL Social History Tobacco Use Types [...] on filedocumented in this encounter Care Teams Racing Manager Relationship Specialty Start Date End Date Jolanta Freeman MD PCP - General Pediatrics 05/24/13 documented as of this encounter
--- OUTSIDE RECORDS SUMMARY | 2024-06-07 00:20 | XMS_ITS | Referral Summary ---
Author Organization [facility] Address [address] [place] [address] Care Team Providers Care Ob/Gyn Nurse Name Role Phone Jolanta Freeman MD Primary Care Provider + [phone] Source Comments [facility],non-owned Affiliates and Associated Physician Practices is amultiple site organization consisting of ambulatory clinics and hospital sitesin [place], [place], [place] and [place]. This disclosure is being madepursuant to the Care Everywhere program and may not contain all information available regarding this patient. Last updated 18.[facility] Allergies No known active allergies Medications * [...] COMPREHENSIVE METABOLIC PANEL (10/09/2018 5:22 AM CDT) [facility] Glucose 124(H) 74 - 106 mg/dL 10/09/2018 6:05 AM CDT [facility] Sodium 134(L) 136 - 145 mmol/L 10/09/2018 6:05 AM CDT [facility] Potassium 4.1 3.5 - 5.1 mmol/L 10/09/2018 6:05 AM CDT [facility] Chloride 99 98 - 107 mmol/L 10/09/2018 6:05 AM CDT [facility] CO2 26 23 - 31 mmol/L 10/09/2018 6:05 AM CDT [facility] Calcium 8.9 8.4 - 10.2 mg/dL 10/09/2018 6:05 AM T [facility] Anion Gap 9 8 - 16 mmol/L 10/09/2018 6:05 AM T [facility] BUN 2(L) 7 - 18.7 mg/dL 10/09/2018 6:05 AM T [facility] Creatinine 0.44(L) 0.55 - 1.02 mg/dL 10/09/2018 6:05 AM T [facility] Alkaline Phosphatase 69 40 - 150 U/L 10/09/2018 6:05 AM T [facility] ALT 9(L) 13 - 61 U/L 10/09/2018 6:05 AM T [facility] AST 12 5 - 34 U/L 10/09/2018 6:05 AM [facility] Protein Total 6.1(L) 6.4 - 8.3 gm/dL 10/09/2018 6:05 AM T [facility] Albumin 3.6 3.5 - 5.2 gm/dL 10/09/2018 6:05 AM T [facility] Bilirubin Total 0.7 0.2 - 1.0 mg/dL 10/09/2018 6:05 AM T [facility] eGFR by MDRD >60 >60 mL/min/1.7 3m2 10/09/2018 6:05 AM [facility] eGFR by MDRD >60 >60 mL/min/1.7 3m2 10/09/2018 6:05 AM [facility] Blood BLOOD SPECIMEN / Unknown Lab Venipuncture / Unknown 10/09/2018 5:22 AM CDT 10/09/2018 5:28 AM CDT Narrative [facility] - 10/09/2018 6:05 AM CDT Attention clinician: BUN Reference Range has changed. Suni Barrera MD LAB - CHEMISTRY O RDERABLES [facility] [address] [place] [address] * (ABNORMAL) HEMOGLOBIN A1C (10/08/2018 12:52 AM CDT) Hemoglobin A1c 10.3(H) 4.0 - 6.1 % 10/08/2018 1:18 AM CDT [facility] Estimated Average Glucose 249 mg/dL 10/08/2018 1:18 AM CDT [facility] Blood BLOOD SPECIMEN / Unknown Lab Venipuncture / Unknown 10/08/2018 12:52 AM CDT 10/08/2018 12:57 AM CDT Narrative [facility] - 10/08/2018 1:18 AM CDT Attention clinician: ??Reference Range has changed. Cody Palmer MD LAB - CHEMISTRY HANDY [place]ONG Performing Organization Address City/[facility]/ZIP Co de Phone Number [facility] [address] [place], [place] [id number] * HIV-1 HIV-2 ANTIBODY + HIV P24 AG PANEL (10/07/2018 8:53 PM CDT) HIV1/2 Ab + P24 Ag Non Reactive Non Reactive 10/07/2018 9:41 PM CDT [facility] Blood BLOOD SPECIMEN / Unknown Lab Venipuncture / Unknown 10/07/2018 8:53 PM CDT 10/07/2018 8:59 PM CDT Narrative [facility] - 10/07/2018 9:41 PM CDT No Laboratory evidence of HIV infection. Franchesca Orellana MD LAB - CHEMISTR Y ORDERABLES Performing Organization Address City/[facility]/ZIP Co de Phone Number [facility] [address] [place] [address] from Last 3 Months or Most Recently [...] 9:40 PM 11/30/2017 4:07 PM Care Teams Ob/Gyn Nurse Relationship Specialty Start Date End Date Jolanta Freeman MD PCP - General Pediatrics 05/24/13
--- OUTSIDE RECORDS SUMMARY | 2024-06-07 00:20 | XMS_ITS | Encounter Summary ---
Author Organization [facility] Address [facility] [place] [address] Care Team Providers Care Knotting Machine Operator Portable Name Role Phone Carrie Joseph PA-C Primary Care Provider Encounter Details Date Type Department Care Team (Late st Contact Info) Description 07/17/2017 Abstract [facility] CONVERSION [address] [place] [address] , Generic Conversion, Social History Tobacco Use [...] Rule Out 04/16/2020 04/22/2020 04/23/2020 3:31 PM FIRE EATER documented as of this encounter Care Teams Knotting Machine Operator Portable Relationship Specialty Start Date End Date Carrie Joseph PA-C PCP - General PHYSICIAN ZINC CHLORIDE OPERATOR 01/11/19 documented as of this encounter
--- OUTSIDE RECORDS SUMMARY | 2024-06-07 00:20 | XMS_ITS | Clinical Summary ---
Author Organization [facility] Address [facility] [place] [address] Care Team Providers Care Teller Manager Name Role Phone EmeraldCarrie moreland Josette BETTS Primary Care Provider Allergies No known active allergies Medications insulin lispro (HUMALOG) 100 UNIT/ML patient supplied PUMP Inject into the skin continuous. Active Active Problems No known active problems Resolved Problems Problem Noted Date Diagnosed Date Resolved Date Vomiting 06/25/2019 06/25/2019 Encounters Date Type Department Care Team Description 05/10/2024 7:35 AM RUST Anesthesia Event [facility] [address] [place] [id number] Lex Perea, Alma Zaman MD 05/10/2024 7:30 AM MILKING SYSTEM INSTALLER - 05/10/2024 8:19 AM RUST Surgery [facility] [address] [place] [address] Genie Pittman MD DILATATION & CURETTAGE SUCTION WITH 12 CURVED VACUUM CURETTE, TRANSVAGINAL ULTRASOUND 05/10/2024 6:42 AM MILKING SYSTEM INSTALLER - 05/10/2024 10:30 AM RUST Hospital Encounter [facility] [address] [place] [address] Genie Pittman MD Discharge Disposition: Home or Self Care (Routine Discharge) 05/10/2024 Travel 05/05/2024 Travel 05/04/2024 12:03 PM MILKING SYSTEM INSTALLER - 05/04/2024 11:59 PM MILKING SYSTEM INSTALLER Hospital Encounter [facility] [address] [place] [address] Genie Pittman MD Discharge Disposition: Home or Self Care (Routine Discharge) 05/04/2024 Orders Only [facility] [address] [place] [address] Genie Pittman MD 05/04/2024 Travel from Last 3 Months [...] Comments Blood Pressure 98/45 05/10/2024 9:45 AM MILKING SYSTEM INSTALLER Pulse 105 05/10/2024 8:22 AM MILKING SYSTEM INSTALLER Temperature 36.7 ??C (98 ??F) 05/10/2024 9:15 AM MILKING SYSTEM INSTALLER Respiratory Rate 18 05/10/2024 8:22 AM MILKING SYSTEM INSTALLER Oxygen Saturation 99% 05/10/2024 9:45 AM MILKING SYSTEM INSTALLER Inhaled Oxygen Concentration - - Weight 77.1 kg (170 lb) 05/10/2024 6:54 AM MILKING SYSTEM INSTALLER Height 154.9 cm (5' 1 ) 05/10/2024 6:54 AM MILKING SYSTEM INSTALLER Body Mass Index 32.12 05/10/2024 6:54 AM MILKING SYSTEM INSTALLER Plan of Treatment Health Maintenance Due Date [...] on patient's age to complete this topic Meningococcal B Vaccine Aged Out No l onger eligible based on patient's age to complete [...] DILATATION & CURETTAGE SUCTION 05/10/2024 7:35 AM MILKING SYSTEM INSTALLER MISSED Case Notes IDDM-has insulin pump PATHOLOGY Routine 05/10/2024 12:00 AM MILKING SYSTEM INSTALLER URINE BACTERIA CULTURE Routine 05/04/2024 12:17 PM MILKING SYSTEM INSTALLER Pre-operative laboratory examination TYPE & SCREEN Routine 05/04/2024 12:17 PM MILKING SYSTEM INSTALLER Pre-operative laboratory examination HC URINALYSIS AUTO W/O MICRO Routine 05/04/2024 12:17 PM MILKING SYSTEM INSTALLER Pre-operative laboratory examination CBC W/DIFF AUTOMATED Routine 05/04/2024 12:17 PM MILKING SYSTEM INSTALLER Pre-operative laboratory examination from Last 3 Months Results * Pathology (05/10/2024 12:00 AM MILKING SYSTEM INSTALLER) PATHOLOGY [facility] ? Department of Laboratory Medicine ?[address] [facility] ?[place] [address] ? , extension [phone] ? Pathology Report ? Surgical Pathology Report Name: KARINA FUCHS ? Specimen #: [id number] Age: 2 1995 (Age: 28) ?Location: [facility] Sex: F ?Procedure Date: 05/10/2024 Hospital #: [id number] ?Date Received: 05/11/2024 Date Reported: 05/12/2024 Provider: GENIE PITTMAN MD Source: Products of conception Clinical History: Missed . FINAL DIAGNOSIS: Uterine contents, dilation and suction curettage: ? -Immature chorionic villi with patchy edema and degenerative changes. ? -Chorionic plate and decidua with acute inflammation and degenerative changes. ? -Three-vessel umbilical cord with degenerative changes. ? -Gestational endometrium with acute and chronic inflammation. ? - parts present. Gross Description: Received in formalin, labeled with a patient label and as product of conception, is a 10.5 x 7.5 x 3.5 cm aggregate of pink castaneda tissue fragments intermixed with clotted blood. ??Macerated parts are grossly identified. The foot length measures 0.6 cm. ??A 6.9 cm umbilical cord is identified, attached to the fragmented torso, and ranges from 0.1-0.4 cm in diameter. ??The 0.1 cm umbilical cord diameter is identified extending from the torso and measures 1.2 cm in length. ??The largest umbilical cord diameter is just distal to the smallest umbilical cord diameter. ??Sectioning through the placental parenchyma reveals rare cystic foci that measure up to 0.6 cm. ??No further discrete parenchymal lesions are identified. Director It sections are submitted as follows: 1 ??motor vehicle field representative umbilical cord, including constrictive proximal focus 23 ??random sections. Please note: The specimen is returned to the collecting facility following microscopic examination. Gross examination (when applicable) was performed at [facility], [address] [place] [address]. This case was interpreted and signed out at [facility], [address] [place] [address]. ?? Electronically Signed Out ? C. Abdirahman Santana M.D. [facility] TISSUE PRODUCTS OF CONCEPTION TISSUE SPECIMEN / Unknown 05/10/2024 8:00 AM MILKING SYSTEM INSTALLER Genie Pittman MD PATHOLOGY/CYTOLOGY ORDERABLES Final Result [facility] [address] [place] [address], [id number] * TYPE & SCREEN (05/04/2024 12:17 PM MILKING SYSTEM INSTALLER) ABO/RH O POSITIVE 05/04/2024 4:37 PM MILKING SYSTEM INSTALLER [facility] ANTIBODY SCREEN NEGATIVE 05/04/2024 4:37 PM MILKING SYSTEM INSTALLER [facility] SAMPLE EXPIRATION 05/18/2024,2 359 05/06/2024 7:40 AM MILKING SYSTEM INSTALLER [facility] 05/04/2024 12:1 7 PM MILKING SYSTEM INSTALLER Genie Pittman MD BLOOD BANK TEST ORDERABLES Fin al Result [facility] [address] [place] [address], [place] [phone] * (ABNORMAL) URINALYSIS (05/04/2024 12:17 PM MILKING SYSTEM INSTALLER) COLOR (U) YELLOW 05/04/2024 1:48 PM MILKING SYSTEM INSTALLER [facility] TRANSPARENCY CLEAR 05/04/2024 1:48 PM MILKING SYSTEM INSTALLER [facility] SPECIFIC GRAVITY (U) 1.010 1.002 - 1.030 05/04/2024 1:48 PM MILKING SYSTEM INSTALLER [facility] U PH 7.0 4.5 - 8.0 05/04/2024 1:48 PM MILKING SYSTEM INSTALLER [facility] LEUKOCYTES (U) 1+(A) NEGATIVE 05/04/2024 1:48 PM MILKING SYSTEM INSTALLER [facility] NITRITES NEGATIVE NEGATIVE 05/04/2024 1:48 PM MILKING SYSTEM INSTALLER [facility] PROTEIN RANDOM (U) 1+(A) NEGATIVE 05/04/2024 1:48 PM MILKING SYSTEM INSTALLER [facility] GLUCOSE (U) 4+(A) NEGATIVE 05/04/2024 1:48 PM MILKING SYSTEM INSTALLER [facility] KETONES MG/DL (U) NEGATIVE NEGATIVE 05/04/2024 1:48 PM MILKING SYSTEM INSTALLER [facility] UROBILINOGEN NORMAL NORMAL EU/DL 05/04/2024 1:48 PM MILKING SYSTEM INSTALLER [facility] BILIRUBIN (U) NEGATIVE NEGATIVE 05/04/2024 1:48 PM MILKING SYSTEM INSTALLER [facility] BLOOD (U) 3+(A) NEGATIVE 05/04/2024 1:48 PM MILKING SYSTEM INSTALLER [facility] WBC/HPF 0-5 /HPF 05/04/2024 1:48 PM MILKING SYSTEM INSTALLER [facility] RBC/HPF 5-10 /HPF 05/04/2024 1:48 PM [facility] EPI/HPF 5-10 /HPF 05/04/2024 1:48 PM [facility] BACTERIA (U) 1+ /HPF 05/04/2024 1:48 PM MILKING SYSTEM INSTALLER [facility] MUCUS 2+ 05/04/2024 1:48 PM MILKING SYSTEM INSTALLER [facility] URINE SPECIMEN OBTAINED BY CLEAN CATCH PROCEDURE / Unknown 05/04/2024 12:17 PM MILKING SYSTEM INSTALLER us Genie Pittman MD URINE ORDERABLES Final Result Performing Organization Address City/[facility]/ZIP Co de Phone Number [facility] [address] [place] [address], [place] [phone] * (ABNORMAL) URINE BACTERIA CULTURE (05/04/2024 12:17 PM MILKING SYSTEM INSTALLER) SPEC DESCRIPTION URINE CLEAN CATCH 05/04/2024 12:28 PM [facility] SPECIAL REQUESTS NO SPECIAL REQUEST 05/04/2024 12:28 PM [facility] CULTURE RESULT 10,000-49,000 COL/ML STREPTOCOCCUS GROUP D-NOT ENTEROCOCCUS SUSCEPTIBILTY NOT ROUTINELY PERFORMED. SAVING ISOLATE FOR 5 DAYS. CONTACT MICROBIOLOGY DEPARTMENT IF FURTHER WORKUP IS INDICATED. (A) 05/07/2024 8:24 AM MILKING SYSTEM INSTALLER [facility] URINE SPECIMEN OBTAINED BY CLEAN CATCH PROCEDURE / Unknown 05/04/2024 12:17 PM MILKING SYSTEM INSTALLER 05/04/2024 12:28 PM MILKING SYSTEM INSTALLER us Genie Pittman MD MICROBIOLOGY - GENERAL ORDERAB LES Final Result Performing Organization Address City/[facility]/ZIP Co de Phone Number [facility] [address] [place] [address], [place] [phone] [facility] [address] [place] [address], [place] [phone] * (ABNORMAL) CBC W/DIFF AUTOMATED (05/04/2024 12:17 PM MILKING SYSTEM INSTALLER) [facility] WBC 10.70 4.50 - 11.00 x10'3/uL 05/04/2024 12:36 PM MILKING SYSTEM INSTALLER [facility] RBC 3.94(L) 4.20 - 5.40 x10'6/uL 05/04/2024 12:36 PM [facility] HGB 11.8(L) 12.0 - 16.0 G/DL 05/04/2024 12:36 PM [facility] HCT 35.2(L) 38.0 - 48.0 % 05/04/2024 12:36 PM [facility] MCV 89.3 81.0 - 99.0 FL 05/04/2024 12:36 PM [facility] MCH 29.9 27.0 - 31.0 PG 05/04/2024 12:36 PM [facility] MCHC 33.5 32.0 - 36.0 G/DL 05/04/2024 12:36 PM [facility] RDW 13.2 11.5 - 14.5 % 05/04/2024 12:36 PM [facility] PLT 378 130 - 400 x10'3/uL 05/04/2024 12:36 PM [facility] MPV 8.8(L) 9.3 - 12.2 FL 05/04/2024 12:36 PM [facility] CBC COMMENT AUTOMATED RBC MORPHOLOGY AND PLATELET EVALUATION NORMAL 05/04/2024 12:36 PM [facility] NEUTROPHILS % 77.5 % 05/04/2024 12:36 PM [facility] LYMPHOCYTES % 13.9 % 05/04/2024 12:36 PM [facility] MONOCYTES % 6.9 % 05/04/2024 12:36 PM [facility] EOSINOPHILS 0.4 % 05/04/2024 12:36 PM [facility] BASOPHILS 0.3 % 05/04/2024 12:36 PM [facility] IMMATURE GRANS % 1.0 % 05/04/19 25 12:36 PM [facility] NRBC % 0.0 % 05/04/2024 12:36 PM [facility] ABS. NEUTROPHILS TOTAL 8.29(H) 1.80 - 7.70 x10'3/uL 05/04/2024 12:36 PM [facility] ABS. LYMPHOCYTES 1.49 1.00 - 4.80 x10'3/uL 05/04/2024 12:36 PM [facility] ABS. MONOCYTES 0.74 0.24 - 0.86 x10'3/uL 05/04/2024 12:36 PM [facility] ABS. EOSINOPHILS 0.04 0.04 - 0.36 x10'3/uL 05/04/2024 12:36 PM [facility] ABS. BASOPHILS 0.03 0.01 - 0.08 x10'3/uL 05/04/2024 12:36 PM [facility] ABS. IMMATURE GRANULOCYTES 0.11 0.00 - 0.49 x10'3/uL 05/04/2024 12:36 PM [facility] ABS. NUCLEATED RBC'S 0.00 0.00 - 0.01 x10'3/uL 05/04/2024 12:36 PM MILKING SYSTEM INSTALLER [facility] 05/04/2024 12:1 7 PM MILKING SYSTEM INSTALLER Genie Pittman MD LABORATORY Final Result [facility] [address] [place] [address], from Last [address] [place] [place] [address] C/O PROVIDER SERVICES KEANU BAIRES [id number] Advance Directives Documents on File Type Date Recorded Patient Director It Expl anation Advance Directives and Living Will 04/18/2020 9:10 AM 01/10/2007 LIVING [place] [employer] Advance Directives and Living Will 04/18/2020 9:09 AM 01/10/2007 HC POA Advance Directives and Living Will 01/07/2017 SHORT FORM POWER OF FORMING YARDAGE CONTROL OPERATOR Advance Directives and Living Will 01/07/2017 LIVING WILL Advance Directives and Living Will 12/22/2016 LIVING WILL Advance Directives and Living Will 12/22/2016 SHORT FORM POWER OF FORMING YARDAGE CONTROL OPERATOR * Full Code (Latest Code Status on File) Date Activated Date Inactivated Comments 05/10/2024 8:24 AM 05/10/2024 12:51 PM * Full Code Date Activated Date Inactivated Comments 04/24/2020 11:18 AM 04/24/2020 2:03 PM * Full Code Date Activated Date Inactivated Comments 06/25/2019 6:14 AM 06/25/2019 6:51 PM Care Teams Teller Manager Relationship Specialty Start Date End Date Carrie Joseph PA-C PCP - General PHYSICIAN FIXED INCOME DIRECTOR 01/11/19
--- OUTSIDE RECORDS SUMMARY | 2024-06-07 00:20 | XMS_ITS | Clinical Summary ---
Author Organization [facility] Address [address] [place] [address] Phone Care Team Providers Care Acute Care Nurse Practitioner Name Role Phone Carrie Joseph Primary Care Provider [phone] Naomi Sanches MD Unavailable Allergies No known active allergies Medications Glucose Blood (BLOOD GLUCOSE TEST STRIPS) Strip 1 Strip by Does not apply route 4 times daily. 400 Each 3 08/11/19 20 Active ReliOn Pen Emma 32G X 4 MM Misc 4 times [...] 10 Tablet 10/01/19 24 Active Continuous Glucose Plastic Boat Buffer (Dexcom G7 Plastic Boat Buffer) Device Check blood glucose before each meal [...] Department Care Team Description 05/25/2024 9:15 AM PAPER RECLAIMING MACHINE OPERATOR Office Visit [facility] - Endocrinology - [place] [address] [place] [address] Naomi Sanches MD Type 1 diabetes mellitus without complication (HCC) (Primary Dx); Class 1 obesity due to excess calories with serious comorbidity and body mass index (BMI) of 32.0 to 32.9 in adult; Hypoglycemia; Insulin pump titration Discharge Disposition: Discharged to home or Selfcare 05/23/2024 Travel 03/24/2024 Refill [facility] - Endocrinology - [place] [address] [place] [address] Naoim Sanches MD Medication Refill from Last 3 [...] Comments Blood Pressure 120/74 05/25/2024 9:10 AM PAPER RECLAIMING MACHINE OPERATOR Pulse 107 05/25/2024 9:10 AM PAPER RECLAIMING MACHINE OPERATOR Temperature 36.3 ??C (97.3 ??F) 05/25/2024 9:10 AM CS T Respiratory Rate 22 05/25/2024 9:10 AM PAPER RECLAIMING MACHINE OPERATOR Oxygen Saturation 97% 05/25/2024 9:10 AM PAPER RECLAIMING MACHINE OPERATOR Inhaled Oxygen Concentration - - Weight 80.3 kg (177 lb) 05/25/2024 9:10 AM PAPER RECLAIMING MACHINE OPERATOR Height 157.5 cm (5' 2 ) 05/25/2024 9:10 AM PAPER RECLAIMING MACHINE OPERATOR Body Mass Index 32.37 05/25/2024 9:10 AM PAPER RECLAIMING MACHINE OPERATOR Plan of Treatment Upcoming Encounters Date Type Department Care Team (Late st Contact Info) Description 08/23/2024 9:45 AM CDT Office Visit [facility] - Endocrinology - [place] [address] [place] [id number] Naomi Sanches MD [address] [address] Health Maintenance Due Date Last [...] POCT GLYCOSYLATED HEMOGLOBIN Routine 05/25/2024 9:15 AM PAPER RECLAIMING MACHINE OPERATOR Type 1 diabetes mellitus without complication (HCC) CMP (COMPREHENSIVE METABOLIC PANEL) STAT 07/21/2017 9:00 PM CDT from Last 3 Months or Most Recently Relevant to Health Maintenance Results * POCT GLYCOSYLATED HEMOGLOBIN (05/25/2024 9:15 AM PAPER RECLAIMING MACHINE OPERATOR) Pathologist [facility] HGB-A1C 5.4 4 - 6 % Blood 05/25/2024 9:15 AM PAPER RECLAIMING MACHINE OPERATOR Naomi Sanches MD POINT OF CARE TESTING (MANUAL) F inal Result * (ABNORMAL) CMP (Comprehensive Metabolic Panel) (07/21/2017 9:00 PM CDT) Pathologist [facility] SODIUM 139 131 - 143 mmol/L 07/21/2017 10:05 PM CDT [facility] POTASSIUM 4.7 3.5 - 5.1 mmol/L 07/21/2017 10:05 PM CDT [facility] CHLORIDE 94(L) 100 - 110 mmol/L 07/21/2017 10:05 PM CDT [facility] CO2, VENOUS 21(L) 22 - 32 mmol/L 07/21/2017 10:05 PM CDT [facility] ANION GAP 28.7(H) 8.0 - 20.0 mmol/L 07/21/2017 10:05 PM CDT [facility] GLUCOSE 310(H) 70 - 105 mg/dL 07/21/2017 10:05 PM CDT [facility] BUN 19 10 - 31 mg/dL 07/21/2017 10:05 PM CDT [facility] CREATININE, BLOOD 0.46(L) 0.60 - 1.30 mg/dL 07/21/2017 10:05 PM CDT [facility] BUN/CREATININE RATIO 41(H) 12 - 20 ratio 07/21/2017 10:05 PM CDT [facility] TOTAL PROTEIN 8.1 6.0 - 8.3 g/dL 07/21/2017 10:05 PM CDT [facility] ALBUMIN 4.9 3.5 - 5.2 g/dL 07/21/2017 10:05 PM CDT [facility] A/G RATIO 1.5 1.0 - 2.0 07/21/2017 10:05 PM CDT [facility] CALCIUM 10.2 8.9 - 10.3 mg/dL 07/21/2017 10:05 PM CDT [facility] T BILI 0.4 0.3 - 1.2 mg/dL 07/21/2017 10:05 PM CDT [facility] SGOT (AST) 12 1 - 32 U/L 07/21/2017 10:05 PM CDT [facility] SGPT (ALT) 9 1 - 33 U/L 07/21/2017 10:05 PM CDT [facility] ALKALINE PHOSPHATASE 116(H) 35 - 105 U/L 07/21/2017 10:05 PM CDT [facility] GFR, EST. NONAFRICAN >60 >=60 07/21/2017 10:05 PM CDT [facility] GFR, EST. >60 >=60 07/21/2017 10:05 PM CDT [facility] Comment: Creatinine Clearance is the preferred criteria for selecting drug dose adjustments in renally impaired patients. ??The GFR is provided as additional pertinent clinical information. GFR is reported in mL/min/1.73 sq m. Blood specimen (specimen) Venous Catheter (IV) / Unknown 07/21/2017 9:00 PM CDT 07/21/2017 9:42 PM CDT Renzo Nuñez MD CHEMISTRY ORDERABLES Chanell l Result [facility] [address] [place] [address] from Last 3 Months or Most Recently Relevant to Health Maintenance Insurance [place] [employer] [employer] [id number] Advance Directives * Full Code (Latest Code [...] measures to stabilize the patient. Care Teams Acute Care Nurse Practitioner Relationship Specialty Start Date End Date Carrie Joseph PA [address] [address] PCP - General Adult Medicine 11/11/18 Naomi Sanches MD [address] [address] Consulting Physician Endocrinology 05/21/20
--- OUTSIDE RECORDS SUMMARY | 2024-06-07 00:20 | XMS_ITS | Patient Health Summary ---
Author Organization [facility] [employer] Address [address] [place] [address] Care Team Providers Care Lay Out Worker Name Role Phone Jolanta Freeman MD Primary Care Provider + [phone] Note from [facility],non-owned Affiliates and Associated Physician Practices is amultiple site organization consisting of ambulatory clinics and hospital sitesin [place], [place] and [place]. This disclosure is being madepursuant to the Care Everywhere program and may not contain all information available regarding this patient. Last updated 18.[facility] Allergies No known active allergies Medications * [...] diabetes mellitus affecting in first trimester, antepartum ([facility]) * COMPREHENSIVE METABOLIC PANEL(Performed 10/07/2018) Performed for Type 1 diabetes mellitus with ketoacidosis without coma (HCC), 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, antepartum ([facility]) * OBSTETRIC PANEL (BEAKER)(Performed 10/07/2018) Performed for Type 1 diabetes mellitus with ketoacidosis without coma (HCC), 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, antepartum ([facility]) * GLUCOSE - POINT OF CARE(Performed 10/07/2018) [...] of113 resultswithin the time period is included. [facility] Glucose WB/POC 171(H) 70 - 106 mg/dL 10/09/2018 3:55 PM CDT [facility] Specimen Type Arterial/C apillary 10/09/2018 3:55 PM CDT [facility] Blood BLOOD SPECIMEN / Unknown 10/09/2018 3:43 PM CDT 10/09/2018 3:55 PM CDT Franchesca Orellana MD LAB - POINT OF CARE ORDERABLES Performing Organization Address City/[facility] [address]/[facility] Co de Phone Number [facility] [address] [place] [phone] * (ABNORMAL) KETONES QUALITATIVE URINE AUTO (10/09/2018 11:50 AM CDT) Only the most recent of3 resultswithin the time period is included. [facility] Ketone UA 2+(A) Negative 10/09/2018 12:23 PM CDT [facility] Urine URINE / Unknown Collection / Unknown 10/09/2018 11:50 AM CDT 10/09/2018 12:17 PM CDT Narrative [facility] - 10/09/2018 12:23 PM CDT Lauren Mckoy MD LAB - URINALYSIS ORD ERABLES Performing Organization Address City/[facility] [address]/ZIP Co de Phone Number [facility] [address] [place] [address] * (ABNORMAL) CBC W AUTO DIFFERENTIAL (10/09/2018 5:22 AM CDT) Only the most recent of11 resultswithin the time period is included. [facility] WBC 8.6 4.4 - 10.7 x10E9/L 10/09/2018 5:45 AM CDT [facility] WBC Corrected x10E9/L 10/09/2018 5:45 AM CDT [facility] RBC 5.15 3.80 - 5.20 x10E12/L 10/09/2018 5:45 AM [facility] Hemoglobin 14.2 12.0 - 15.6 gm/dL 10/09/2018 5:45 AM [facility] Hematocrit 41.5 35.9 - 45.5 % 10/09/2018 5:45 AM [facility] MCV 80.6(L) 80.7 - 98.3 fl 10/09/2018 5:45 AM [facility] MCH 27.6 26.7 - 34.0 pg 10/09/2018 5:45 AM [facility] MCHC 34.2 30.8 - 35.9 gm/dL 10/09/2018 5:45 AM [facility] Platelet Count 420(H) 153 - 416 x10E9/L 10/09/2018 5:45 AM [facility] RDW-CV 14.2 12.1 - 14.9 % 10/09/2018 5:45 AM [facility] MPV 8.7(L) 9.4 - 12.9 fl 10/09/2018 5:45 AM [facility] Neutrophils % 51.3 44.0 - 73.0 % 10/09/2018 5:45 AM [facility] Lymphocytes % 32.5 20.0 - 43.0 % 10/09/2018 5:45 AM [facility] Monocytes % 13.8(H) 5.0 - 13.0 % 10/09/2018 5:45 AM [facility] Eosinophils % 0.1 0.0 - 6.0 % 10/09/2018 5:45 AM [facility] Basophils % 0.7 0.0 - 2.0 % 10/09/2018 5:45 AM [facility] Immature Granulocytes 1.6(H) 0 - 1 % 10/09/2018 5:45 AM [facility] Neutrophil Absolute 4.43 2.01 - 7.14 x10E9/L 10/09/2018 5:45 AM [facility] Lymphocytes Absolute 2.81 1.07 - 3.94 x10E9/L 10/09/2018 5:45 AM [facility] Monocytes Absolute 1.19(H) 0.26 - 1.07 x10E9/L 10/09/2018 5:45 AM CDT [facility] Eosinophils Absolute 0.01 0 - 0.47 x10E9/L 10/09/2018 5:45 AM CDT [facility] Basophils Absolute 0.06 0 - 0.08 x10E9/L 10/09/2018 5:45 AM CDT [facility] Immature Granulocytes Absolute 0.14(H) 0.00 - 0.06 x10E9/L 10/09/2018 5:45 AM CDT [facility] nRBC Auto 0 /100 WBC 10/09/2018 5:45 AM T [facility] Blood BLOOD SPECIMEN / Unknown Lab Venipuncture / Unknown 10/09/2018 5:22 AM CDT 10/09/2018 5:28 AM CDT Jay Ceja MD LAB - HEMATOLOGY ORD ERABLES [facility] [address] [place], [place] [phone] * (ABNORMAL) COMPREHENSIVE METABOLIC PANEL (10/09/2018 5:22 AM CDT) Only the most recent of6 resultswithin the time period is included. Glucose 124(H) 74 - 106 mg/dL 10/09/2018 6:05 AM [facility] Sodium 134(L) 136 - 145 mmol/L 10/09/2018 6:05 AM [facility] Potassium 4.1 3.5 - 5.1 mmol/L 10/09/2018 6:05 AM [facility] Chloride 99 98 - 107 mmol/L 10/09/2018 6:05 AM [facility] CO2 26 23 - 31 mmol/L 10/09/2018 6:05 AM [facility] Calcium 8.9 8.4 - 10.2 mg/dL 10/09/2018 6:05 AM [facility] Anion Gap 9 8 - 16 mmol/L 10/09/2018 6:05 AM [facility] BUN 2(L) 7 - 18.7 mg/dL 10/09/2018 6:05 AM [facility] Creatinine 0.44(L) 0.55 - 1.02 mg/dL 10/09/2018 6:05 AM CDT [facility] Alkaline Phosphatase 69 40 - 150 U/L 10/09/2018 6:05 AM CDT [facility] ALT 9(L) 13 - 61 U/L 10/09/2018 6:05 AM CDT [facility] AST 12 5 - 34 U/L 10/09/2018 6:05 AM CDT [facility] Protein Total 6.1(L) 6.4 - 8.3 gm/dL 10/09/2018 6:05 AM CDT [facility] Albumin 3.6 3.5 - 5.2 gm/dL 10/09/2018 6:05 AM CDT [facility] Bilirubin Total 0.7 0.2 - 1.0 mg/dL 10/09/2018 6:05 AM CDT [facility] eGFR by MDRD >60 >60 mL/min/1.7 3m2 10/09/2018 6:05 AM CDT [facility] eGFR by MDRD >60 >60 mL/min/1.7 2 10/09/2018 6:05 AM CDT [facility] Blood BLOOD SPECIMEN / Unknown Lab Venipuncture / Unknown 10/09/2018 5:22 AM CDT 10/09/2018 5:28 AM CDT Narrative [facility] - 10/09/2018 6:05 AM CDT Attention clinician: BUN Reference Range has changed. Suni Barerra MD LAB - CHEMISTRY O RDERABLES [facility] [address] [place] [address] * (ABNORMAL) PHOSPHORUS BLOOD (10/09/2018 5:22 AM CDT) Only the most recent of14 resultswithin the time period is included. Phosphorus 1.8(L) 2.3 - 4.7 mg/dL 10/09/2018 6:04 AM CDT [facility] Blood BLOOD SPECIMEN / Unknown Lab Venipuncture / Unknown 10/09/2018 5:22 AM CDT 10/09/2018 5:28 AM CDT Jay Ceja MD LAB - CHEMISTRY ORDE RABLES Performing Organization Address [facility]/ZIP Co de Phone Number [facility] [address] [place] [address] * (ABNORMAL) MAGNESIUM BLOOD (10/09/2018 5:22 AM CDT) Only the most recent of12 resultswithin the time period is included. Pathologist [facility] Magnesium 1.4(L) 1.6 - 2.6 mg/dL 10/09/2018 6:04 AM CDT [facility] Blood BLOOD SPECIMEN / Unknown Lab Venipuncture / Unknown 10/09/2018 5:22 AM CDT 10/09/2018 5:28 AM CDT Jay Ceja MD LAB - CHEMISTRY HANDY KONG Performing Organization Address [facility] Co de Phone Number [facility] [address] [place] [address] * EKG 12-LEAD (10/08/2018 6:28 PM CDT) Only the most recent of3 resultswithin the time period is included. [facility] Ventricular Rate 80 BPM [facility] Atrial Rate 80 BPM [facility] P-R Interval 122 ms [facility] QRS Duration ms 80 ms [facility] Q-T Interval ms 350 ms [facility] QTC Calculation (Bezet) 403 ms [facility] Calculated P [place] 67 degrees [facility] Calculated R [place] 90 degrees [facility] Calculated T [place] 59 degrees [facility] Interpretation EKG SINUS RHYTHM WITH APCS BORDERLINE ECG NO PREVIOUS ECGS AVAILABLE Confirmed by MD Rudy, Felipe ([id number]) on 10/12/2018 7:33:13 AM [facility] 10/08/2018 6:28 PM CDT 10/12/2018 7:33 AM CDT Sandra Dickerson MD ECG ORDERABLES Performing Organization Address [facility] Co de Phone Number [facility] * (ABNORMAL) HYDROXYBUTYRATE BETA (10/08/2018 4:57 PM CDT) Only the most recent of4 resultswithin the time period is included. [facility] Beta-Hydroxybu tyrate 0.6(H) <0.6 mmol/L 10/08/2018 5:27 PM CDT [facility] Blood BLOOD SPECIMEN / Unknown Lab Venipuncture / Unknown 10/08/2018 4:57 PM CDT 10/08/2018 5:01 PM CDT Narrative [facility] - 10/08/2018 5:27 PM CDT Betahydroxybutyrate comment: This test replaces Serum Acetone testing.Results 0.6-1.5 mmol/L could require medical intervention. Results >1.5 mmol/L may be indicative of diabetic ketoacidosis. Use in conjunction with Serum Glucose levels. Lauren Mckoy MD LAB - CHEMISTRY HANDY KONG [facility] Organization Address City/State/ZIP Co de Phone Number [facility] [address] [place] [address] * (ABNORMAL) BLOOD GASES ARTERIAL (10/08/2018 12:23 PM CDT) Pathologist [facility] pH Arterial 7.42 7.35 - 7.45 pH [...] Mode Room Air 10/08/2018 12:37 PM CDT [facility] Sample Site R Radial 10/08/2018 12:37 PM CDT [facility] Sample Type Arterial 10/08/2018 12:37 PM CDT [facility] [employer] Screen [employer] Trimmer ID [id number] 10/08/2018 12:37 PM CDT [facility] Blood, arterial ARTERIAL BLOOD SPECIMEN / Unknown 10/08/2018 12:23 PM CDT 10/08/2018 12:23 PM CDT Suni Barrera MD LAB - BLOOD GASES ORDERABLES [facility] [address] [phone] * HCG BETA BLOOD QUANTITATIVE (10/08/2018 11:42 AM CDT) hCG Quantitative 7,151.16 mIU/mL 10/09/19 19 12:52 PM CDT [facility] Blood BLOOD SPECIMEN / Unknown Lab Venipuncture / Unknown 10/08/2018 11:42 AM CDT 10/08/2018 12:09 PM CDT Narrative [facility] - 10/08/2018 12:52 PM CDT ? [...] - CHEMISTRY O EVELIA Performing Organization Address [facility] de Phone Number [facility] [address] [place] [phone] * PROTEIN URINE QUALITATIVE AUTO (10/08/2018 11:20 AM CDT) Protein UA Negative Negative 10/08/2018 11:45 AM CDT [facility] Urine URINE / Unknown Collection / Unknown 10/08/2018 11:20 AM CDT 10/08/2018 11:32 AM CDT Jay Ceja MD LAB - URINALYSIS ORD RADHABLES Performing Organization Address [facility] [address]/ZIP Co de Phone Number [facility] [address] [place] [address] * (ABNORMAL) GLUCOSE URINE QUALITATIVE AUTO (10/08/2018 11:20 AM CDT) Glucose UA 2+(A) Negative 10/08/2018 11:45 AM CDT [facility] Urine URINE / Unknown Collection / Unknown 10/08/2018 11:20 AM CDT 10/08/2018 11:32 AM CDT Jay Ceja MD LAB - URINALYSIS ORD ERABLES Performing Organization Address City/[facility] [address]/ZIP Co de Phone Number [facility] [address] [place] [address] * BLOOD TYPE VERIFICATION (10/08/2018 6:05 AM CDT) ABO O 10/08/2018 6:50 AM CDT [facility] Rh Type Positive 10/08/2018 6:50 AM CDT [facility] Blood Bank BLOOD SPECIMEN / Unknown Lab Venipuncture / Unknown 10/08/2018 6:05 AM CDT 10/08/2018 6:12 AM CDT Franchesca Orellana MD LAB - BLOOD BA NK ORDERABLES Performing Organization Address City/[facility] [address]/[facility] Co de Phone Number [facility] [address] [place] [address] * (ABNORMAL) HEMOGLOBIN A1C (10/08/2018 12:52 AM CDT) Only the most recent of3 resultswithin the time period is included. Hemoglobin A1c 10.3(H) 4.0 - 6.1 % 10/08/2018 1:18 AM CDT [facility] Estimated Average Glucose 249 mg/dL 10/08/2018 1:18 AM CDT [facility] Blood BLOOD SPECIMEN / Unknown Lab Venipuncture / Unknown 10/08/2018 12:52 AM CDT 10/08/2018 12:57 AM CDT Narrative [facility] - 10/08/2018 1:18 AM CDT Attention clinician: ??Reference Range has changed. Cody Palmer MD LAB - CHEMISTRY HANDY KONG Performing Organization Address [facility] Co de Phone Number [facility] [address] [place] [address] * TYPE + SCREEN PANEL (10/08/2018 12:52 AM CDT) ABO O 10/08/2018 1:33 AM CDT [facility] Rh Type Positive 10/08/2018 1:33 AM CDT [facility] Comment:History checked. Col lect retype. Antibody Screen Negative 10/08/2018 1:33 AM CDT [facility] Blood Bank BLOOD SPECIMEN / Unknown Lab Venipuncture / Unknown 10/08/2018 12:52 AM CDT 10/08/2018 12:58 AM CDT Cody Palmer MD LAB - BLOOD BANK ALONSO FORBES Performing Organization Address [facility] Co de Phone Number [facility] [address] [place] [address] * (ABNORMAL) URINALYSIS REFLEX MICROSCOPIC REFLEX CULTURE (10/07/2018 10:39 PM CDT) Color UA Yellow Straw, Yellow 10/07/2018 11:09 PM CDT [facility] Clarity UA Clear Clear 10/07/2018 11:09 PM CDT [facility] Glucose UA 3+(A) Negative 10/07/2018 11:09 PM CDT [facility] Bilirubin UA Negative Negative 10/07/2018 11:09 PM CDT [facility] Ketone UA 2+(A) Negative 10/07/2018 11:09 PM CDT [facility] Specific [place] UA 1.022 1.005 - 1.030 10/07/2018 11:09 PM CDT [facility] Blood UA Negative Negative 10/07/2018 11:09 PM CDT [facility] pH UA 6.0 5.0 - 8.0 pH 10/07/2018 11:09 PM CDT [facility] Protein UA Negative Negative 10/07/2018 11:09 PM CDT [facility] Urobilinogen UA Negative Negative mg/dL 10/07/2018 11:09 PM CDT [facility] Nitrite UA Negative Negative 10/07/2018 11:09 PM CDT [facility] Leukocyte UA Negative Negative 10/07/2018 11:09 PM CDT [facility] Urine Microscopy Urine microscopy not indicated 10/07/2018 11:09 PM CDT [facility] Reflex Status Culture not indicated 10/07/2018 11:09 PM CDT [facility] Urine URINE SPECIMEN OBTAINED BY CLEAN CATCH PROCEDURE / Unknown Collection / Unknown 10/07/2018 10:39 PM CDT 10/07/2018 10:49 PM CDT Narrative [facility] - 10/07/2018 11:09 PM CDT Cody Palmer MD LAB - URINALYSIS ORD ERABLES [facility] [address] [place] [address] * DRUG SCREEN TOX URINE PANEL (10/07/2018 10:38 PM CDT) Only the most recent of3 resultswithin the time period is included. [facility] Amphetamines Screen Urine Not Detected Not Detected 10/07/2018 11:44 PM CDT [facility] Barbiturates Screen Urine Not Detected Not Detected 10/07/2018 11:44 PM CDT [facility] Benzodiazepines Screen Urine Not Detected Not Detected 10/07/2018 11:44 PM CDT [facility] Cannabinoids Screen Urine Not Detected Not Detected 10/07/2018 11:44 PM CDT [facility] Cocaine Screen Urine Not Detected Not Detected 10/07/2018 11:44 PM CDT [facility] Methadone Screen Urine Not Detected Not Detected 10/07/2018 11:44 PM CDT [facility] Opiate Screen Urine Not Detected Not Detected 10/07/2018 11:44 PM CDT [facility] Phencyclidine Screen Urine Not Detected Not Detected 10/07/2018 11:44 PM CDT [facility] Urine URINE / Unknown Collection / Unknown 10/07/2018 10:38 PM CDT 10/07/2018 10:49 PM CDT Narrative [facility] - 10/07/2018 11:44 PM CDT This [...] URINE CHEMISTR Y ORDERABLES Performing Organization Address [facility] de Phone Number [facility] [address] [place] [phone] * SYPHILIS ANTIBODY CASCADING REFLEX (10/07/2018 8:53 PM CDT) Treponema pallidum Antibody Non Reactive Non Reactive 10/07/2018 9:41 PM CDT [facility] Comment: No Laboratory evidence of syphilis infection. ?? Note: ??Circulating antibodies may be low or undetectable in early infection. ??If recent exposure is suspected, re-draw sample in 2-4 weeks and repeat testing. Blood BLOOD SPECIMEN / Unknown Lab Venipuncture / Unknown 10/07/2018 8:53 PM CDT 10/07/2018 8:59 PM CDT Cody Palmer MD LAB - SEROLOGY ORDER RULA Performing Organization Address [facility] de Phone Number [facility] [address] [place], [place] [phone] * HIV-1 HIV-2 ANTIBODY + HIV P24 AG PANEL (10/07/2018 8:53 PM CDT) HIV1/2 Ab + P24 Ag Non Reactive Non Reactive 10/07/2018 9:41 PM CDT [facility] Blood BLOOD SPECIMEN / Unknown Lab Venipuncture / Unknown 10/07/2018 8:53 PM CDT 10/07/2018 8:59 PM CDT Narrative [facility] - 10/07/2018 9:41 PM CDT No Laboratory evidence of HIV infection. Franchesca Orellana MD LAB - CHEMISTR Y ORDERABLES Performing Organization Address [facility] Co de Phone Number [facility] [address] [place], [place] [phone] * TSH REFLEX FREE T4 (10/07/2018 8:53 PM CDT) TSH 0.4015 0.35 - 4.94 ulU/mL 10/07/2018 9:42 PM CDT [facility] Blood BLOOD SPECIMEN / Unknown Lab Venipuncture / Unknown 10/07/2018 8:53 PM CDT 10/07/2018 8:59 PM CDT Cody Palmer MD LAB - CHEMISTRY HANDY KONG Performing Organization Address [facility] de Phone Number [facility] [address] [place] [phone] * RUBELLA ANTIBODY IGG (10/07/2018 8:53 PM CDT) Rubella Antibody 1.65 Immune >0.99 index 10/10/2018 8:06 AM CDT [facility] ([facility]) Comment: ?Non-immune ? <0.90 ?Equivocal ??0.90 - 0.99 ?Immune ? >0.99 Blood BLOOD SPECIMEN / Unknown Venipuncture / Unknown 10/07/2018 8:53 PM CDT 10/07/2018 8:59 PM CDT Narrative [facility] ([facility]) - 10/10/2018 8:06 AM CDT Performed at: ??01 - [facility] [address] [place], [place] ??[id number] Report Developer: Gregorio Ortega PhD, Phone: ??[phone] Cody Palmer MD LAB - SEROLOGY ORDER RULA Performing Organization Address City/[facility]/ZIP Co de Phone Number [facility] ([facility]) [address] [place] [address] * HEPATITIS B SURFACE ANTIGEN W RFLX CONFIRMATION (10/07/2018 8:53 PM CDT) [facility] HBsAg Non Reactive Non Reactive 10/07/2018 9:43 PM CDT [facility] Blood BLOOD SPECIMEN / Unknown Lab Venipuncture / Unknown 10/07/2018 8:53 PM CDT 10/07/2018 9:00 PM CDT Cody Palmer MD LAB - CHEMISTRY ORDE DILAN Performing Organization Address City/[facility] [address]/ZIP Co de Phone Number [facility] [address] [place] [phone] * CARDIAC PROCEDURE ORDER (03/16/2018 8:28 AM VESSEL BUILDER) Only the most recent of2 resultswithin the time period is included. Narrative 03/16/2018 8:28 AM VESSEL BUILDER Ordered by an unspecified provider. Scanned Document [...] resultswithin the time period is included. Pathologist [facility] WBC (corrected for NRBC) 5.9 10? 3 /uL 12/30/2017 7:29 AM CDT [facility] Total Cell Count 100 12/30/2017 7:29 AM [facility] Neutrophils Absolute Manual 1.36(L) 1.60 - 7.00 10? 3 /uL 12/30/2017 7:29 AM [facility] Comment:(BANDS+SEGS) x WBC = NEUT # (ANC) Lymphocyte Absolute Manual 4.13(H) 0.80 - 2.90 10? 3 /uL 12/30/2017 7:29 AM [facility] Monocytes Absolute Manual 0.41 0.14 - 0.66 10? 3 /uL 12/30/2017 7:29 AM [facility] Neutrophil % Manual 23(L) 30 - 60 % 12/30/2017 7:29 AM [facility] Lymphocyte % Manual 70(H) 20 - 45 % 12/30/2017 7:29 AM [facility] Monocytes % Manual 7 2 - 10 % 12/30/2017 7:29 AM [facility] Platelet Estimate Adequate Adequate 12/30/2017 7:29 AM [facility] Ovalocytes Occasional(A ) None 12/30/2017 7:29 AM [facility] Blood BLOOD SPECIMEN / Unknown Venipuncture / Unknown 12/30/2017 5:45 AM CDT 12/30/2017 5:48 AM CDT Iesha Dominguez Lionel NATURAL G[employer] TRADER-JOURNEYMAN PIPEFITTER LAB - HEMATOLOGY ORDERABLES [facility] [address] [place] [address] * (ABNORMAL) BASIC METABOLIC PANEL (CALCIUM TOTAL) (12/30/2017 5:45 AM CDT) Only the most recent of19 resultswithin the time period is included. BUN 5(L) 7 - 26 mg/dL 12/30/2017 6:05 AM [facility] Creatinine 0.4(L) 0.6 - 1.2 mg/dL 12/30/2017 6:05 AM [facility] Sodium 136 136 - 145 mmol/L 12/30/2017 6:05 AM [facility] Comment:Checked Potassium 3.7 3.5 - 4.5 mmol/L 12/30/2017 6:05 AM [facility] Chloride 102 98 - 107 mmol/L 12/30/2017 6:05 AM [facility] CO2 25 22 - 29 mmol/L 12/30/2017 6:05 AM [facility] Glucose 174(H) 70 - 115 mg/dL 12/30/2017 6:05 AM [facility] Calcium 8.4 8.4 - 10.2 mg/dL 12/30/2017 6:05 AM [facility] Anion Gap 13 8 - 18 12/30/2017 6:05 AM [facility] BUN/Creatinine Ratio 13 7 - 23 12/30/2017 6:05 AM [facility] Osmolality Calculated 283 270 - 300 mOsm/kg 12/30/2017 6:05 AM [facility] eGFR >60 >60 mL/min/1.7 3 m2 12/30/2017 6:05 AM [facility] Blood BLOOD SPECIMEN / Unknown Venipuncture / Unknown 12/30/2017 5:45 AM CDT 12/30/2017 5:48 AM CDT Cl Del Valle DO LAB - CHEMISTRY OR DERABLES Performing Organization Address City/State/[facility] Co de Phone Number [facility] [address] [place] [address] * CELIAC DISEASE PROFILE W RFLX (12/28/2017 6:21 AM CDT) Endomysial Antibody IgA Negative Negative 12/29/2017 4:24 PM CDT [facility] ([facility]) TTG Antibody IgA <2 0 - 3 U/mL 12/30/19 18 4:24 PM CDT [facility] ([facility]) Comment: ?Negative ?0 - ??3 ?Weak Positive ?? 4 - 10 ?Positive ? >10 Tissue Transglutaminase (tTG) has been identified as the endomysial antigen. ??Studies have demonstr- ated that endomysial IgA antibodies have over 99% specificity for gluten sensitive enteropathy. IgA Quantitative 147 87 - 352 mg/dL 12/29/2017 4:24 PM CDT [facility] ([facility]) Blood BLOOD SPECIMEN / Unknown Venipuncture / Unknown 12/28/2017 6:21 AM CDT 12/28/2017 6:27 AM CDT Narrative [facility] ([facility]) - 12/29/2017 4:24 PM CDT Performed at: ??01 - [facility] [address], [place] ??[id number] Report Developer: Gregorio Ortega PhD, Phone: ??[phone] Cl Del Valle DO LAB - CHEMISTRY OR DERABLES Performing Organization Address [facility] [address]/[facility] de Phone Number [facility] ([facility]) [address] [place] [id number] * TSH (12/28/2017 6:21 AM CDT) Only the most recent of2 resultswithin the time period is included. Pathologist [facility] TSH 1.573 0.350 - 4.940 uIU/mL 12/28/2017 7:07 AM CDT [facility] Blood BLOOD SPECIMEN / Unknown Venipuncture / Unknown 12/28/2017 6:21 AM CDT 12/28/2017 6:26 AM CDT Cl Del Valle DO LAB - CHEMISTRY OR DERABLES Performing Organization Address [facility] [address]/[facility] de Phone Number [address] [phone] * PT-INR [facility] (12/26/2017 6:11 AM CDT) Only the most recent of2 resultswithin the time period is included. Pathologist [facility] PT 14.3 12.1 - 14.8 Seconds 12/26/2017 6:46 AM T [facility] INR 1.1 See Comment 12/26/2017 6:46 AM [facility] Comment: The suggested therapeutic range for standard coumadin (warfarin) therapy is an INR of 2.0-3.0. For high-risk patients (Mechanical Mitral Valve Prosthesis, etc.), the suggested prophylactic therapeutic range is an INR of 2.5-3.5. Blood BLOOD SPECIMEN / Unknown Venipuncture / Unknown 12/26/2017 6:11 AM CDT 12/26/2017 6:20 AM CDT Connie Loya MD LAB - COAGULATION OR DERABLES Performing Organization Address City/[facility] [address]/ZIP Co de Phone Number [address] [phone] * LACTIC ACID BLOOD (12/26/2017 6:11 AM CDT) Only the most recent of3 resultswithin the time period is included. Pathologist [facility] Lactic Acid-Stat 1.4 0.5 - 2.2 mmol/L 12/26/2017 6:52 AM [facility] Blood BLOOD SPECIMEN / Unknown Venipuncture / Unknown 12/26/2017 6:11 AM CDT 12/26/2017 6:20 AM CDT Connie Loya MD LAB - CHEMISTRY ORDE RABLES Performing Organization Address City/[facility] [address]/ZIP Co de Phone Number [address] [phone] * (ABNORMAL) BLOOD GASES JACLYN (12/26/2017 1:24 AM CDT) Only the most recent of2 resultswithin the time period is included. pH Mixed Venous 7.23(L) 7.30 - 7.40 12/26/2017 2:24 AM [facility] pCO2 Mixed Venous 28(L) 40 - 46 mmHg 12/26/2017 2:24 AM [facility] pO2 Mixed Venous 52(H) 35 - 42 mmHg 12/26/2017 2:24 AM [facility] HCO3 Mixed Venous 11.3(L) 22.0 - 26.0 mmol/L 12/26/2017 2:24 AM [facility] TCO2 Mixed Venous 12.1(L) 25.0 - 29.0 mmol/L 12/26/2017 2:24 AM [facility] Base Excess Venous -14.7(L) -2.0 - 2.0 mmol/L 12/26/2017 2:24 AM [facility] Hemoglobin Mixed Venous 13.1 12.0 - 15.5 g/dL 12/26/2017 2:24 AM [facility] Oxyhemoglobin Mixed Venous 80.1(H) 66.0 - 77.0 % 12/26/2017 2:24 AM [facility] Carboxyhemoglobin Venous 0.3 0.0 - 3.0 % 12/26/2017 2:24 AM [facility] Methemoglobin 0.5 0.0 - 2.0 % 12/26/2017 2:24 AM [facility] FI O2 Mixed Venous 21.0 % 2017 2:24 AM [facility] Blood BLOOD SPECIMEN / Unknown Venipuncture / Unknown 12/26/2017 1:24 AM CDT 12/26/2017 2:22 AM CDT Dannie Lafleur MD LAB - BLOOD GASES ORDERABLES Performing Organization Address [facility]/State/[facility] Co de Phone Number [facility] [address] [place] [address] * XR CHEST 2VW (12/26/2017 12:53 AM CDT) Anatomical Region Laterality Modality Chest Radiographic Sarahy ging 12/26/2017 1:58 AM CDT Impressions 12/26/2017 6:56 AM CDT FINDINGS/IMPRESSION: Lungs are clear and well-expanded. ??There is no focal consolidation, pleural effusion, or pneumothorax. The cardiomediastinal silhouette is normal. This report was dictated by Jd Gray M.D. (radiology teacher). I, Dr. EDGAR GUTIERREZ MD have personally [...] report was dictated by Jd Gray M.D. (radiology teacher). I, Dr. EDGAR GUTIERREZ MD have personally reviewed and interpreted this examination/study. This report was electronically signed by EDGAR GUTIERREZ MD on12/26/2017 6:56 AM . 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 LAB - POINT OF C ARE ORDERABLES [facility] POCT TESTING [address] [place] [address] * (ABNORMAL) URINALYSIS NO MICROSCOPIC NO CULTURE (12/25/2017 8:55 PM CDT) Color UA Yellow Straw, Yellow, Colorless, Light Yellow 12/25/2017 9:16 PM CDT [facility] Clarity UA Clear Clear 12/25/2017 9:16 PM CDT [facility] Specific Sycamore UA 1.027 1.001 - 1.030 12/25/2017 9:16 PM CDT [facility] pH UA 5.5 5.0 - 8.0 12/25/2017 9:16 PM CDT [facility] Protein UA 20(A) <=20 mg/dL 12/25/2017 9:16 PM T [facility] Glucose UA >1000(A) Negative mg/dL 12/25/2017 9:16 PM T [facility] Ketone UA >80(A) Negative mg/dL 12/25/2017 9:16 PM T [facility] Bilirubin UA Negative Negative mg/dL 12/25/2017 9:16 PM CDT [facility] Blood UA Negative Negative 12/25/2017 9:16 PM T [facility] Nitrite UA Negative Negative 12/25/2017 9:16 PM T [facility] Leukocyte Esterase Trace(A) Negative 12/25/2017 9:16 PM T [facility] Urobilinogen UA <2.0 <2.0 mg/dL 8 9:16 PM CDT [facility] Urine URINE SPECIMEN OBTAINED BY CLEAN CATCH PROCEDURE / Unknown Collection / Unknown 12/25/2017 8:55 PM CDT 12/25/2017 8:59 PM CDT Lamar SMYTH LAB - URINALYSIS ORDERABLES [address] [phone] * (ABNORMAL) LIPASE BLOOD (12/25/2017 7:58 PM CDT) Only the most recent of2 resultswithin the time period is included. Lipase 5(L) 8 - 78 Units/L 12/25/2017 9:58 PM CDT [facility] Blood BLOOD SPECIMEN / Unknown Venipuncture / Unknown 12/25/2017 7:58 PM CDT 12/25/2017 8:03 PM CDT Lamar Alexander [facility] LAB - CHEMISTRY ORDERABLES Performing Organization Address City/[facility] [address]/ZIP Co de Phone Number [address] [phone] * (ABNORMAL) RENAL FUNCTION PANEL (12/10/2017 7:53 AM CDT) Only the most recent of2 resultswithin the time period is included. Glucose 69(L) 74 - 106 mg/dL 12/10/2017 8:13 AM CDT [facility] Sodium 141 136 - 145 mmol/L 12/10/2017 8:13 AM CDT [facility] Potassium 3.2(L) 3.5 - 5.1 mmol/L 12/10/2017 8:13 AM CDT [facility] Chloride 107 98 - 107 mmol/L 12/10/2017 8:13 AM CDT [facility] CO2 24 22 - 31 mmol/L 12/10/2017 8:13 AM CDT [facility] Calcium 7.5(L) 8.5 - 10.1 mg/dL 12/10/2017 8:13 AM CDT [facility] Anion Gap 10 8 - 16 mmol/L 12/10/2017 8:13 AM CDT [facility] BUN 3(L) 7 - 21 mg/dL 12/10/2017 8:13 AM CDT [facility] Creatinine 0.31(L) 0.50 - 1.30 mg/dL 12/10/2017 8:13 AM CDT [facility] Albumin 2.8(L) 3.4 - 5.0 gm/dL 12/10/2017 8:13 AM CDT [facility] Phosphorus 4.4 2.5 - 4.9 mg/dL 12/10/2017 8:13 AM CDT [facility] eGFR by MDRD >60 >60 mL/min/1.7 3m2 12/10/2017 8:13 AM CDT [facility] eGFR by MDRD >60 >60 mL/min/1.7 3m2 12/10/2017 8:13 AM CDT [facility] Blood BLOOD SPECIMEN / Unknown Venipuncture / Unknown 12/10/2017 7:53 AM CDT 12/10/2017 7:53 AM CDT Joelle Petty MD LAB - CHEMISTRY [facility] Organization Address City/State/ZIP Co de Phone Number [facility] [address] [place] [address] * (ABNORMAL) PROCALCITONIN LEVEL (12/09/2017 9:07 PM CDT) Procalcitonin 0.26(H) <=0.10 ng/mL 12/10/2017 1:17 PM CDT [facility] Blood BLOOD SPECIMEN / Unknown Venipuncture / Unknown 12/09/2017 9:07 PM CDT 12/09/2017 10:09 PM CDT Narrative [facility] - 12/10/2017 1:17 PM CDT The [...] Change in Procalcitonin Calculator is available at [email or web address] ?? If clinical picture has not improved and PCT remains high, reevaluate and consider treatment failure or other causes. Abdirahman Bruce MD LAB - CHEMISTRY [facility] Organization Address City/State/ZIP Co de Phone Number [facility] [address] [place] [address] * TROPONIN I (12/09/2017 4:23 PM CDT) Troponin I <0.015 0.000 - 0.049 ng/mL 12/09/2017 6:47 PM CDT [facility] Blood BLOOD SPECIMEN / Unknown Venipuncture / Unknown 12/09/2017 4:23 PM CDT 12/09/2017 4:37 PM CDT Narrative [facility] - 12/09/2017 6:47 PM CDT Note: [...] Performing Organization Address City/[facility] [address]/ZIP Co de Phone Number [facility] [address] [place] [address] * CULTURE VRE (12/09/2017 4:23 PM CDT) Pathologist [facility] Culture Negative for vancomycin-resi stant Enterococci (VRE) ORQUIDEA 12/11/2017 6:12 AM CDT [facility] MICROBIOLOGY Microbiology ENTIRE RECTUM / Unknown Collection / Unknown 12/09/2017 4:23 PM CDT 12/09/2017 4:36 PM CDT Satinder Landry MD LAB - MICROBIOLOGY O RDERAETTA [facility] MICROBIOLOGY [address] [phone] * CULTURE MRSA (12/09/2017 4:23 PM CDT) Only the most recent of2 resultswithin the time period is included. Culture Negative for methicillin-resist ant Staphylococcus aureus (MRSA) ORQUIDEA 12/11/2017 6:04 AM CDT [facility] MICROBIOLOGY Microbiology ENTIRE RECTUM / Unknown Collection / Unknown 12/09/2017 4:23 PM CDT 12/09/2017 4:36 PM CDT Satinder Landry MD LAB - MICROBIOLOGY O RDERABLES [facility] MICROBIOLOGY [address] [place] [address], [facility] [phone] * (ABNORMAL) CBC W/O DIFFERENTIAL (11/30/2017 3:31 AM CDT) Only the most recent of2 resultswithin the time period is included. WBC 6.6 3.5 - 10.5 10? 3 /uL 11/30/2017 4:06 AM [facility] RBC 4.24 3.90 - 5.00 10? 6 /uL 11/30/2017 4:06 AM [facility] Hemoglobin 11.9(L) 12.0 - 15.5 g/dL 11/30/2017 4:06 AM [facility] Hematocrit 34.0(L) 35.0 - 45.0 % 11/30/2017 4:06 AM [facility] MCV 80.2(L) 81.0 - 97.0 fL 11/30/2017 4:06 AM [facility] MCH 28.1 28.0 - 34.0 pg 11/30/2017 4:06 AM [facility] MCHC 35.0 32.0 - 36.0 g/dL 11/30/2017 4:06 AM [facility] Platelet Count 324 150 - 400 10? 3 /uL 11/30/2017 4:06 AM [facility] RDW-SD 39.0 36.0 - 50.0 fL 11/30/2017 4:06 AM [facility] RDW-CV 13.4 11.2 - 14.8 % 11/30/2017 4:06 AM [facility] MPV 8.7(L) 9.3 - 12.8 fL 11/30/2017 4:06 AM [facility] Blood BLOOD SPECIMEN / Unknown Lab Venipuncture / Unknown 11/30/2017 3:31 AM CDT 11/30/2017 3:57 AM CDT Lucas Carrera MD LAB - HEMATOLOGY ORDERABLES Performing Organization Address [facility] Co de Phone Number [address] [phone] * (ABNORMAL) ALBUMIN BLOOD (11/30/2017 3:31 AM CDT) Albumin 3.2(L) 3.4 - 5.0 g/dL 11/30/2017 4:19 AM CDT [facility] Blood BLOOD SPECIMEN / Unknown Lab Venipuncture / Unknown 11/30/2017 3:31 AM CDT 11/30/2017 3:57 AM CDT Lewis Garcia MD LAB - CHEMISTRY O RDERABLES Performing Organization Address [facility] [address]/[facility] Co de Phone Number [address] [phone] * (ABNORMAL) CORTISOL BLOOD AM (11/29/2017 9:08 AM CDT) Only the most recent of4 resultswithin the time period is included. Cortisol AM 28.7(H) 3.7 - 19.4 mcg/dL 11/29/2017 2:21 PM CDT [facility] Blood BLOOD SPECIMEN / Unknown Venipuncture / Unknown 11/29/2017 9:08 AM CDT 11/29/2017 9:50 AM CDT Lucas Carrera MD LAB - CHEMISTRY ORDERABLES Performing Organization Address [facility] [address]/[facility] Co de Phone Number [address] [phone] * ACTH (11/29/2017 8:27 AM CDT) ACTH 30.1 7.2 - 63.3 pg/mL 11/30/2017 1:12 PM CDT [facility] ([facility]) Comment:ACTH reference inter tommie for samples collected between 7 and 10 AM. Blood BLOOD SPECIMEN / Unknown Venipuncture / Unknown 11/29/2017 8:27 AM CDT 11/29/2017 8:30 AM CDT N[facility]ative [facility]) - 11/30/2017 1:12 PM CDT Performed at: ??01 - [facility] [address] [place], [place] ??[id number] Report Developer: Gregorio Ortega PhD, Phone: ??[phone] Lucas Carrera MD LAB - CHEMISTRY ORDERABLES Performing Organization Address City/[facility] [address]/ZIP Co de Phone Number [facility] ([facility]) [address] [place] [address] * CULTURE BLOOD (11/28/2017 10:30 PM CDT) Only the most recent of2 resultswithin the time period is included. Pathologist [facility] Culture No growth day 5 ORQUDIEA 12/04/2017 2:00 AM CDT [facility]CROBIOLOG[facility] Blood PERIPHERAL BLOOD / Unknown Venipuncture / Unknown 11/28/2017 10:30 PM CDT 11/28/2017 10:37 PM CDT Lucas Carrera MD LAB - MICROBIOLO GY ORDERABLES Performing Organization Address City/[facility] [address]/ZIP Co de Phone Number [facility]CRO[facility] [address] [place], [place] [id number] [place] [address] * PTT [facility] (11/28/2017 10:29 PM CDT) APTT 25.2 23.0 - 38.4 Seconds 11/28/2017 10:48 PM CDT [facility] Comment: Suggested therapeutic range for full dose I.V. heparin therapy for venous thromboembolism is 66.0-91.0 seconds. Blood BLOOD SPECIMEN / Unknown Venipuncture / Unknown 11/28/2017 10:29 PM CDT 11/28/2017 10:36 PM CDT Lucas Carrera MD LAB - COAGULATIO N ORDERABLES Performing Organization Address City/[facility] [address]/[place] [address], [facility] [phone] * ALCOHOL ETHYL BLOOD (11/28/2017 10:29 PM CDT) Interpretation Ethanol None Detected None Detected mg/dL 11/28/2017 11:44 PM CDT [facility] Comment: Ethanol levels less than 10 mg/dL are resulted as None detected . Blood BLOOD SPECIMEN / Unknown Venipuncture / Unknown 11/28/2017 10:29 PM CDT 11/28/2017 11:22 PM CDT Lucas Carrera MD LAB - CHEMISTRY ORDERABLES Performing Organization Address [facility] [address]/[facility] Co de Phone Number [address] [phone] * XR CHEST 1VW PORTABLE (11/28/2017 10:22 [...] Yellow, Colorless, Light Yellow 11/28/2017 10:53 PM [facility] Clarity UA Clear Clear 11/28/2017 10:53 PM [facility] Specific Sycamore UA 1.022 1.001 - 1.030 11/28/2017 10:53 PM [facility] pH UA 6.0 5.0 - 8.0 11/28/2017 10:53 PM [facility] Protein UA 20(A) <=20 mg/dL 11/28/2017 10:53 PM [facility] Glucose UA >1000(A) Negative mg/dL 11/28/2017 10:53 PM [facility] Ketone UA >80(A) Negative mg/dL 11/28/2017 10:53 PM [facility] Bilirubin UA Negative Negative mg/dL 11/28/2017 10:53 PM [facility] Blood UA Moderate(A) Negative 11/28/2017 10:53 PM [facility] Nitrite UA Negative Negative 11/28/2017 10:53 PM [facility] Leukocyte Esterase Negative Negative 11/28/2017 10:53 PM [facility] Urobilinogen UA <2.0 <2.0 mg/dL 8 10:53 PM [facility] RBC UA 65(H) 0 - 8 /HPF 11/28/2017 10:53 PM [facility] WBC UA <1 0 - 2 /HPF 11/28/2017 10:53 PM [facility] Squamous Epithelial Cells UA 1 0 - 1 /HPF 11/28/2017 10:53 PM CDT [facility] Mucus UA Occasional( A) None /LPF 11/28/2017 10:53 PM CDT [facility] Urine URINE SPECIMEN OBTAINED BY CLEAN CATCH PROCEDURE / Unknown Collection / Unknown 11/28/2017 9:48 PM CDT 11/28/2017 10:38 PM CDT Lucas Carrera MD LAB - URINALYSIS ORDERABLES Performing Organization Address City/[facility] [address]/[facility] Co de Phone Number [facility] [address] [place], [place] [id number] [place] [address] * CULTURE URINE (11/28/2017 9:48 PM CDT) Culture Urine <10,000 CFU/mL urogenital cassidy ORQUIDEA 11/30/2017 7:54 AM CDT [facility] Urine URINE SPECIMEN OBTAINED BY CLEAN CATCH PROCEDURE / Unknown Collection / Unknown 11/28/2017 9:48 PM CDT 11/28/2017 10:38 PM CDT Lucas Carrera MD LAB - MICROBIOLO GY ORDERABLES Performing Organization Address [facility] [address]/[facility] Co de Phone Number [facility] MICRO[facility]OLOG[facility] [address] [phone] * EKG 15-LEAD (05/29/2013 10:20 AM VESSEL BUILDER) Ventricular Rate 77 BPM CG MUSE Atrial Rate 77 BPM CG MUSE P-R Interval 130 ms CG MUSE QRS Duration ms 78 ms CG MUSE Q-T Interval ms 346 ms CG MUSE QTC Calculation (Bezet) 391 ms CG MUSE Calculated P [place] 30 degrees CG MUSE Calculated R [place] 87 degrees CG MUSE Calculated T [place] 48 degrees CG MUSE Interpretation EKG Sinus rhythm with marked sinus arrhythmia Normal ECG No previous ECGs available Confirmed by MD Paige, [place] ([id number]) on 05/29/2013 10:55:20 AM CG MUSE 05/29/2013 10:2 0 AM VESSEL BUILDER 05/29/2013 10:55 AM VESSEL BUILDER Narrative CG MUSE - 05/29/2013 10:55 AM VESSEL BUILDER Procedure Note Document, Scanned - 05/29/2013 9:34 AM CST Transcriptions Document, Scanned - 05/29/2013 9:34 AM CST Document, Scanned - 05/29/2013 10:56 AM CST Ordering Provider Unlisted MD RAFAELA QUILES CG LUCIANA * ECHO CONSULT - PEDIATRIC (05/29/2013 9:15 AM VESSEL BUILDER) 05/29/2013 9:15 AM VESSEL BUILDER Narrative [facility] - 05/29/2013 11:29 AM VESSEL BUILDER [facility] , Transthoracic Echocardiogram 2D, M-mode, Doppler, and Color Doppler Name: KARINA MENJIVAR MR #: [id number] Study date: 05/29/2013 Age: 17 years : 1995 Gender: Female Ht: 61.9 in / 157.2 cm Wt: 124.1 lb / 56.4 kg BSA: 1.56 m?? HR: BP: / age: AARTI: Maternal age: SCRIPT COORDINATOR: ??Theodore Gibson MD PEDIATRIC ECHO COMBAT RIFLE CREWMEMBER: ??STERLING Cramer REFERRING PHYSICIAN: ??JOLANTA FREEMAN MD [...] g/m2 SV(Teich): 69.3 ml Procedure Note 05/29/2013 [facility] , Transthoracic Echocardiogram 2D, M-mode, Doppler, and Color Doppler Name: KARINA MENJIVAR MR #: [id number] Study date: 05/29/2013 Age: 17 years : 1995 Gender: Female Ht: 61.9 in / 157.2 cm Wt: 124.1 lb / 56.4 kg BSA: 1.56 m?? HR: BP: / age: AARTI: Maternal age: SCRIPT COORDINATOR: Theodore Gibson MD PEDIATRIC ECHO COMBAT RIFLE CREWMEMBER: STERLING Cramer REFERRING PHYSICIAN: JOLANTA FREEMAN MD [...] 69.3 ml Tammy Freeman MD ECHO ORDERABLES [facility] [address] [place] [address] Care Teams Lay Out Worker Relationship Specialty Start Date End Date Jolanta Freeman MD PCP - General Pediatrics 05/24/13
--- OUTSIDE RECORDS SUMMARY | 2024-06-07 00:20 | XMS_ITS | Clinical Summary ---
Author Organization [facility] Address [address] [place] [address] Care Team Providers Care Panel Cutter Name Role Phone Jolanta Freeman MD Primary Care Provider + [phone] Source Comments [facility],non-owned Affiliates and Associated Physician Practices is amultiple site organization consisting of ambulatory clinics and hospital sitesin [place], [place], [place] and [place]. This disclosure is being madepursuant to the Care Everywhere program and may not contain all information available regarding this patient. Last updated 18.[facility] Allergies No known active allergies Medications * [...] - 106 mg/dL 10/09/2018 6:05 AM CDT [facility] Sodium 134(L) 136 - 145 mmol/L 10/09/2018 6:05 AM CDT [facility] Potassium 4.1 3.5 - 5.1 mmol/L 10/09/2018 6:05 AM CDT [facility] Chloride 99 98 - 107 mmol/L 10/09/2018 6:05 AM CDT [facility] CO2 26 23 - 31 mmol/L 10/09/2018 6:05 AM CDT [facility] Calcium 8.9 8.4 - 10.2 mg/dL 10/09/2018 6:05 AM CDT [facility] Anion Gap 9 8 - 16 mmol/L 10/09/2018 6:05 AM CDT [facility] BUN 2(L) 7 - 18.7 mg/dL 10/09/2018 6:05 AM T [facility] Creatinine 0.44(L) 0.55 - 1.02 mg/dL 10/09/2018 6:05 AM T [facility] Alkaline Phosphatase 69 40 - 150 U/L 10/09/2018 6:05 AM T [facility] ALT 9(L) 13 - 61 U/L 10/09/2018 6:05 AM CDT [facility] AST 12 5 - 34 U/L 10/09/2018 6:05 AM T [facility] Protein Total 6.1(L) 6.4 - 8.3 gm/dL 10/09/2018 6:05 AM CDT [facility] Albumin 3.6 3.5 - 5.2 gm/dL 10/09/2018 6:05 AM CDT [facility] Bilirubin Total 0.7 0.2 - 1.0 mg/dL 10/09/2018 6:05 AM T [facility] eGFR by MDRD >60 >60 mL/min/1.7 3m2 10/09/2018 6:05 AM CDT [facility] eGFR by MDRD >60 >60 mL/min/1.7 3m2 10/09/2018 6:05 AM CDT [facility] Blood BLOOD SPECIMEN / Unknown Lab Venipuncture / Unknown 10/09/2018 5:22 AM CDT 10/09/2018 5:28 AM CDT Narrative [facility] - 10/09/2018 6:05 AM CDT Attention clinician: BUN Reference Range has changed. Suni Barrera MD LAB - CHEMISTRY O RDERAETTA [facility] [address] [place] [address] [phone] * (ABNORMAL) HEMOGLOBIN A1C (10/08/2018 12:52 AM CDT) Pathologist [facility] Hemoglobin A1c 10.3(H) 4.0 - 6.1 % 10/08/2018 1:18 AM CDT [facility] Estimated Average Glucose 249 mg/dL 10/08/2018 1:18 AM CDT [facility] Blood BLOOD SPECIMEN / Unknown Lab Venipuncture / Unknown 10/08/2018 12:52 AM CDT 10/08/2018 12:57 AM CDT [facility] - 10/08/2018 1:18 AM CDT Attention clinician: ??Reference Range has changed. Cody Palmer MD LAB - CHEMISTRY [place]Y [place] Performing Organization Address City/[facility]/ZIP Co de Phone Number [facility] [address] [place] [address] [phone] * HIV-1 HIV-2 ANTIBODY + HIV P24 AG PANEL (10/07/2018 8:53 PM CDT) Pathologist [facility] HIV1/2 Ab + P24 Ag Non Reactive Non Reactive 10/07/2018 9:41 PM CDT [facility] Blood BLOOD SPECIMEN / Unknown Lab Venipuncture / Unknown 10/07/2018 8:53 PM CDT 10/07/2018 8:59 PM CDT [facility] - 10/07/2018 9:41 PM CDT No Laboratory evidence of HIV infection. Franchesca Orellana MD LAB - CHEMISTR Y ORDERABLES [facility] [address] [place] [address] from Last 3 Months or Most Recently [...] 9:40 PM 11/30/2017 4:07 PM Care Teams Panel Cutter Relationship Specialty Start Date End Date Jolanta Freeman MD PCP - General Pediatrics 05/24/13
--- OUTSIDE RECORDS SUMMARY | 2024-06-07 00:21 | XMS_ITS | Clinical Summary ---
Author Organization [facility] Address [address] [place] [address] Phone Care Team Providers Care Director Of Income Tax Name Role Phone Unavailable Primary Care Provider Unavailabl e Allergies No known active allergies Medications vit,calc76/iron/f olic (PNV 29-1 ORAL) Take by mouth. 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 Notify MD [...] with HROB and Endocrinology. Pt to call Fabric Finisher and see if they are comfortable treating [...] [] A1c likely to be rechecked via posting clerk but if not, will check qtrimester Diabetic [...] Device Data STL ABSTRACTION Provider, Abstract 05/05/2024 [facility] Maternal and Medicine [facility] [address], [place] [address] Kathryn Coppola Appointment Notification 05/04/2024 [facility] Maternal and Medicine [facility] [place] [facility] [address], [place] [phone] Juhi Mathews MD Appointment Notification 04/17/2024 Telephone [facility] Maternal and Medicine [facility] [place] [facility] [address] [place] [address] Nya Gan, DIANDRA Diabetes 03/14/2024 External Device Data STL ABSTRACTION Provider, Abstract 03/13/2024 Abstract [facility] Maternal and Medicine - [facility] [address] [place] [phone] Stacey Tripathi RN 03/13/2024 Abstract [facility] Maternal and Medicine - [facility] [address] [place] [phone] Jasmina Souza 03/07/2024 Telephone [facility] Maternal Medicine [address] [place] [address] Kelli Neal MD Diabetes from [...] 5.7(H) <5.7 % 01/30/2023 8:43 AM CDT [facility] [employer] [facility] EST. AVG GLUCOSE, A1C 117 mg/dL 01/30/2023 8:43 AM CDT [facility] [employer] [facility] Blood Venipuncture / Unknown 01/30/2023 3:57 AM CDT 01/30/2023 4:01 AM CDT Narrative [facility] - 01/30/2023 8:43 AM CDT HGB A1C INTERPRETATION NORMAL: ? <5.7% PRE-DIABETES: 5.7 - 6.4% DIABETES: ? 6.5% OR GREATER Manuel Goldstein MD CHEMISTRY ORDERABLES Final Resul t [facility]# [id number] [address] [facility] [place] [address] from Last 3 Months or Most Recently Relevant to Health Maintenance Insurance [place] [employer] [facility] RX [employer] Commercial RX [employer] (INTERNAL) [facility] [employer] RX [employer] Commercial RX [employer] Commercial [[id number] Advance Directives For more information, please contact: [phone] * Full Code (Latest Code Status on File) Date Activated Date Inactivated Comments 02/07/2023 8:45 AM 02/13/2023 3:42 PM * Full Code Date Activated Date Inactivated Comments 02/07/2023 8:43 AM 02/07/2023 8:45 AM * Full Code Date Activated Date Inactivated Comments 01/29/2023 4:27 PM 02/07/2023 8:43 AM
--- OUTSIDE RECORDS SUMMARY | 2024-06-07 00:21 | XMS_ITS | Referral Summary ---
Author Organization [facility] Address [address] [place] [address] Care Team Providers Care Patch Driller Name Role Phone Warren Phillips MD Unavailable [phone] Miscellaneous, Not In File Unavailable Unava ilable [...] 04/29/2021 Assessment & Plan (04/29/2021 8:51 AM ACADEMIC COACH): This may be reactive, no source of infection. -pending urine cultures, pending blood culture -sterile pyuria on urinalysis Altered mental status 03/04/2021 Diabetic ketoacidosis with c jorge associated with type 1 diabetes mellitus ([facility]) 11/16/2020 Marijuana abuse 11/16/2020 Intractable [...] with HROB and Endocrinology. Pt to call Remote Sensing Advisor and see if they are comfortable treating [...] [] A1c likely to be rechecked via cylinder checker but if not, will check qtrimester Noncompliance with medication regimen 04/26/2019 Tachycardia 03/24/2019 Diabetic gastroparesis ([facility]) 02/14/2019 Depression 02/11/2019 Hypokalemia [...] Uncontrolled type 1 diabetes mellitus with hyperglycemia ([facility]) 01/02/2018 Assessment & Plan (11/27/2019 [...] coma associated with type 1 diabetes mellitus ([facility]) 03/24/2019 11/20/2021 Assessment & Plan (04/29/2021 8:50 AM ACADEMIC COACH): Patient with multiple admissions for DKA. Patient states that she has been compliant with her insulin and has not missed any doses. Unclear trigger: Viral panel negative On admission patient's glucose was 259, anion gap of 23. Lactate normal. Urinalysis with 4+ ketones, 2+ leukocyte esterase pending the urine culture -beta hydroxybutyrate 1.5 -early childhood educator aide -consulted Endocrine appreciate assistance possibly needing insulin [...] (02/13/2019): Added automatically from request for surgery [id number] Assessment & Plan (11/27/2019 5:37 AM CDT): [...] IV Reglan Sepsis due to gram-negative UTI ([facility]) 05/27/2018 03/06/2020 Metabolic alkalosis 01/02/2018 [...] coma associated with type 1 diabetes mellitus ([facility]) 03/06/2020 Increased lactic acid level [...] often do you attend chur ch or hindu services? Never 01/20/2022 Do you belong to any clubs o r organizations such as jehovah's witness groups, unions, fraternal or athletic groups, or [...] on file Legal Sex Female 3:13 AM ACADEMIC COACH Gender Identity Not on file Sexual [...] BLOOD ORDERABLES Final Res ult TOMY SAHU ([place]) [address] [facility] [place] [address] * TSH reflex to free T4 (01/29/2022 10:34 PM CDT) TSH 1.69 0.30 - 4.20 mcIUnit/mL TOMY [facility] ([place]) Blood 01/29/2022 10:3 4 PM CDT 01/29/2022 10:41 PM CDT Result [facility] Gio Sewell MD LAB BLOOD ORDERABLES Final Re sult Performing Organization Address City/[facility]/ZIP Co de Phone Number TOMY SAHU ([place]) [address] [place] [address] [place] [address] * (ABNORMAL) Hemoglobin A1c (01/29/2022 10:34 PM CDT) Hgb A1C 6.6(H) 4.0 - 5.6 % TOMY [facility] ([place]) Estimated Average Glucose 143 mg/dL [facility]) Comment: The ADA recommends reporting an estimated Average Glucose (eAG) with all Hemoglobin A1c results using the equation derived from a study of 507 normal and diabetic adults. ??Minority populations were underrepresented and children were not included. ?? (Diabetes Care 31:2909-3093, 2008). ??The eAG is not equivalent to a fasting glucose. Blood 01/29/2022 10:3 4 PM CDT 01/29/2022 10:41 PM CDT Gio Sewell MD LAB BLOOD ORDERABLES Final Re sult TOMY SAHU [place]) 1 [facility] [place] [address] * Lipid panel (02/08/2017 8:46 PM CDT) Cholesterol 160 30 - 200 mg/dL TOMY [facility] Comment: Interpretive Data Desirable: ?<200 mg/dL Borderline high: ??200-239 mg/dL High: ? > or = 240 mg/dL Literature Reference: National Cholesterol Education Program (NCEP) Expert Panel on Detection, Evaluation, and Treatment of High Blood Cholesterol in Adults (Adult Treatment Panel III). ??Circulation 2004; 110:227. Current interpretive data was last revised on 2015. Triglycerides 66 0 - 150 mg/dL TOMY [facility] Comment: Interpretive Data Desirable: ? < 150 mg/dL Borderline High: ? 150 - 199 mg/dL High: ?200 - 499 mg/dL Very High: ? > or = 499 mg/dL Literature Reference: See Cholesterol Current interpretive data was last revised on 2015. HDL 57 >=40 mg/dL TOMY [facility] Comment: Interpretive Data Less than 40 mg/dL - low; A major risk factor for heart disease. Greater than or equal to 60 mg/dL - High; ??considered protective of heart disease. Literature Reference: See Cholesterol Current interpretive data was last revised on 2015. LDL, calculated 90 10 - 129 mg/dL TOMY [facility] Comment: Interpretive Data Optimal: ? < 100 mg/dL Near Optimal: ?100 - 129 mg/dL Borderline High: ?? 130 - 159 mg/dL High: ?160 - 189 mg/dL Very high: ? > or = 190 mg/dL Literature Reference: See Cholesterol Current interpretive data was last revised on 2015. Non-HDL Cholesterol 103 mg/dL TOMY [facility] Comment: Interpretive Data When triglycerides are >200 mg/dL, non-HDL C is a secondary target of therapy, with a goal 30 mg/dL higher than the identified LDL-C goal. Reference: ??See Cholesterol Reference. Current interpretive data was last revised 2015. Blood specimen (specimen) 02/08/2017 8:46 PM CDT 02/08/2017 9:09 PM CDT us Antonieta Pinto LAB BLOOD ORDERABLES Final Resul t TOMY [facility] [place] [address] from Last 3 Months or Most Recently Relevant to Health Maintenance Insurance [facility] Advance Directives For more information, please contact: [phone] * Full Code (Latest Code Status on [...] First Alternate Health Care Agent Care Teams Patch Driller Relationship Specialty Start Date End Date Teresita Marquez MD [address] [facility] [address] [place] [address] PCP - General Family Medicine 02/02/22 Warren Phillips MD Consulting Physician Gastroenterology 02/16/19 Miscellaneous, Not In File 07/23/21 Nicole Lopez DO [address] [facility] [address] [place] [address] Resident Family Medicine 11/22/21 Naomi Sanches MD [address] [facility] [address] [place] [address] Referring Physician General Surgery 11/22/21
--- OUTSIDE RECORDS SUMMARY | 2024-06-07 00:21 | XMS_ITS | Clinical Summary ---
Author Organization [facility] Address [address] [place] [address] Care Team Providers Care Advertising Sales Executive Name Role Phone Warren Phillips MD Unavailable [phone] Miscellaneous, Not In File Unavailable Unava ilable [...] 04/29/2021 Assessment & Plan (04/29/2021 8:51 AM COFFEE SHOP MANAGER): This may be reactive, no source of infection. -pending urine cultures, pending blood culture -sterile pyuria on urinalysis Altered mental status 03/04/2021 Diabetic ketoacidosis with c jorge associated with type 1 diabetes mellitus ([facility]) 11/16/2020 Marijuana abuse 11/16/2020 Intractable [...] with HROB and Endocrinology. Pt to call Bowling Floor Desk Clerk and see if they are comfortable treating [...] [] A1c likely to be rechecked via calender operator helper but if not, will check qtrimester Noncompliance with medication regimen 04/26/2019 Tachycardia 03/24/2019 Diabetic gastroparesis ([facility]) 02/14/2019 Depression 02/11/2019 Hypokalemia 11/08/2018 Assessment & [...] Uncontrolled type 1 diabetes mellitus with hyperglycemia ([facility]) 01/02/2018 Assessment & Plan (11/27/2019 [...] coma associated with type 1 diabetes mellitus ([facility]) 03/24/2019 11/20/2021 Assessment & Plan (04/29/2021 8:50 AM COFFEE SHOP MANAGER): Patient with multiple admissions for DKA. Patient states that she has been compliant with her insulin and has not missed any doses. Unclear trigger: Viral panel negative On admission patient's glucose was 259, anion gap of 23. Lactate normal. Urinalysis with 4+ ketones, 2+ leukocyte esterase pending the urine culture -beta hydroxybutyrate 1.5 -ict educator -consulted Endocrine appreciate assistance possibly needing [...] (02/13/2019): Added automatically from request for surgery [id number] Assessment & Plan (11/27/2019 5:37 AM CDT): [...] IV Reglan Sepsis due to gram-negative UTI ([facility]) 05/27/2018 03/06/2020 Metabolic alkalosis 01/02/2018 [...] coma associated with type 1 diabetes mellitus ([facility]) 03/06/2020 Increased lactic acid level [...] History Date Comments Depression Miscarriage Diabetes mellitus ([facility]) T1DM Diabetic ketoacidosis ([facility]) ([facility]) Cannabinoid hyperemesis syndrome Dehydration 01/02/2018 Uncontrolled type 1 diabetes mellitus with hyperglycemia ([facility]) ([facility]) 01/02/2018 Family History Medical History [...] often do you attend chur ch or restoration services? Never 01/20/2022 Do you belong to [...] on file Legal Sex Female 3:13 AM COFFEE SHOP MANAGER Gender Identity Not on file Sexual [...] ORDERABLES Final Res ult Performing Organization Address City/[facility]/ZIP Co de Phone Number TOMY SAHU ([place]) 1 [facility] [employer] [place] [address] * TSH reflex to free T4 (01/29/2022 10:34 PM CDT) TSH 1.69 0.30 - 4.20 mcIUnit/mL TOMY SAHU ([place]) Blood 01/29/2022 10:3 4 PM CDT 01/29/2022 10:41 PM CDT us Gio Sewell MD LAB BLOOD ORDERABLES Final Re sult Performing Organization Address [facility]/ZIP Co de Phone Number TOMY SAHU ([place]) 1 [facility] [employer] [place] [address] * (ABNORMAL) Hemoglobin A1c (01/29/2022 10:34 PM CDT) Hgb A1C 6.6(H) 4.0 - 5.6 % TOMY SAHU ([place]) Estimated Average Glucose 143 mg/dL TOMY [facility]HU ([place]) Comment: The ADA recommends reporting an estimated Average Glucose (eAG) with all Hemoglobin A1c results using the equation derived from a study of 507 normal and diabetic adults. ??Minority populations were underrepresented and children were not included. ?? (Diabetes Care 31:3308-0092, 2008). ??The eAG is not equivalent to a fasting glucose. Blood 01/29/2022 10:3 4 PM CDT 01/29/2022 10:41 PM CDT us Gio Sewell MD LAB BLOOD ORDERABLES Final Re sult TOMY [facility] ([place]) 1 [facility] [place] [address] * Lipid panel (02/08/2017 8:46 PM CDT) [...] calculated 90 10 - 129 mg/dL TOMY [facility] Comment: Interpretive Data Optimal: ? < 100 mg/dL Near Optimal: ?100 - 129 mg/dL Borderline High: ?? 130 - 159 mg/dL High: ?160 - 189 mg/dL Very high: ? > or = 190 mg/dL Literature Reference: See Cholesterol Current interpretive data was last revised on 2015. Non-HDL Cholesterol 103 mg/dL TOMY [facility] Comment: Interpretive Data When triglycerides are >200 mg/dL, non-HDL C is a secondary target of therapy, with a goal 30 mg/dL higher than the identified LDL-C goal. Reference: ??See Cholesterol Reference. Current interpretive data was last revised 2015. Blood specimen (specimen) 02/08/2017 8:46 PM CDT 02/08/2017 9:09 PM CDT us Tessacamille Pinto LAB BLOOD ORDERABLES Final Resul t [facility] One [facility] [place] [address] from Last 3 Months or Most Recently Relevant to Health Maintenance Insurance [facility] IDIN [facility] IDIN Advance Directives For more information, please contact: [phone] * Full Code (Latest Code Status on [...] Agents on File Name Relationship Healthcare Agent [facility] Communication Karen Fuchs Mother First Alternate Health Care Agent Care Teams Advertising Sales Executive Relationship Specialty Start Date End Date Teresita Marquez MD [address] [facility] [address] [place] [address] PCP - General Family Medicine 02/02/22 Warren Phillips MD Consulting Physician Gastroenterology 02/16/19 Miscellaneous, Not In File 07/23/21 Nicole Lopez DO [address] [facility] [address] [place] [address] Resident Family Medicine 11/22/21 Naomi Sanches MD [address] [facility] [address] [place] [address] Referring Physician General Surgery 11/22/21
[2024-06-07 00:30] VITALS: BP 132/84; PULSE 100; RESP 20; O2SAT 99
--- NOTE | 2024-06-07 01:07 | PC.NURSE ---
IV attempted. agile business analyst notified and called distribution warehouse manager.
--- NOTE | 2024-06-07 01:07 | ED.NAVMDI ---
HPI - Nausea/Vomiting/Diarrhea General Chief complaint: Nausea/Vomiting/Diarrhea Stated complaint: n/v since wednesday, hx type 1 diabetic Time Seen by Provider: 06/07/24 00:12 Source: patient and family (grandmother) Mode of arrival: ambulatory Limitations: no limitations History of Present Illness HPI Narrative: Patient presents with constant nausea and frequent vomiting since Wednesday06/04/24. No cough or shortness of breath. Believse 10 episdoes of emesis in the past 24 hours. Type 1 diabetes mellitus on continuous insulin but states blood sugars have been ok. No fevers/chills/abdominal pain/pelvic pain. LBM earlier today without diarrhea. She has been having low back pain and a headache. No sick contacts, dysuria, hematuria, urgency or frequency. LMP was awhile ago. She had a miscarriage in May requiring a D&C but no vaginal bleeding after. No No flank pain. Related Data Home Medications ?Medication ?Instructions ?Recorded ?Confirmed ?Last Taken ?Type insulin lispro 100 unit/mL See Rx Instructions .Route .COMPLEX 02/28/24 02/28/24 Unknown History subcutaneous solution Allergies Allergy/AdvReac Type Severity Reaction Status Date / Time No Known Allergies Allergy Unknown Verified 06/06/24 19:41 [facility] Past Medical History Medical History History of premature delivery History of miscarriage Type 1 diabetes mellitus Gastric ulcer On recent EGD at [facility] Anxiety Finger fracture Abdominal pain Chronic abdominal pain Surgical History Surgical History Hx of dilation and curettage x3 including 2019 following missed ab and in May 2024 after miscarriage Hx of section 2017 Hx of tonsillectomy Family History Family History Mother Family history of anemia Father Unknown family medical history Other Family history of arthritis Family history of hepatitis Family history of liver disease Social History Social History Social History: She lives at home with her 7-year-old daughter and her 1-year-old. She denies any alcohol tobacco or illicit substance use. she is engaged to be . Code status: Full code Surrogate decision maker: Karen Fuchs (mother) Smoking status: Never smoker Alcohol intake: never Substance use: never Substance use type: does not use Do You Feel Safe in your Home?: Yes Lack of Transportation: No Lack of Food: Never True Current Housing: I Have Housing Concerned About Future Housing: No Difficulty Paying Gas/Electric Bills: No Difficulty Paying for Meds: No Currently Unemployed: No Education: Bachelor's Degree Difficulty w/ Childcare or Family Care: No Spiritual care concerns: No Agree to blood products: Yes Exam Narrative: GENERAL: well-nourished, and in no acute distress. Appears tired but not somnolent. HEAD: Normocephalic, atraumatic. EYES: Non injected, non icteric ENT: Nares clear, no rhinorrhea or epistaxis. Tacky mucous membranes NECK: Supple. CHEST: Speaking in full sentences. No respiratory distress. HEART: Tachycaric rate and rhythm. . ABDOMEN: Soft, nondistended. Non tender to palpation. EXTREMITIES: Normal range of motion. No lower extremity edema. SKIN: Warm, dry, no rash. NEURO: No focal deficits. Alert and oriented x3. PSYCH: Normal mood and affect. Course Vital Signs Vital signs: Vital Signs Temperature 97.7 F 06/06/24 20:16 Pulse Rate 114 H 06/06/24 20:16 Respiratory Rate 15 06/06/24 20:16 Blood Pressure 150/99 H 06/06/24 20:16 Pulse Oximetry 100 06/06/24 20:16 Oxygen Delivery Room Air 06/06/24 20:16 Temperature 98 F 06/07/24 07:45 Pulse Rate 100 06/07/24 07:45 Respiratory Rate 16 06/07/24 07:45 Blood Pressure 123/84 06/07/24 07:45 Pulse Oximetry 100 06/07/24 07:45 Oxygen Delivery Room Air 06/06/24 20:16 MDM - Nausea/Vomiting/Diarrhea MDM Narrative Medical decision making narrative: Patient presents with nausea and vomiting as well as low back pain and headache. In the emergency department she is afebrile with vital signs notable for hypertension and tachycardia. Leukocytosis and thrombocytosis. Otherwise with normal renal function and no marked electrolyte abnormalities. Difficult to obtain vascular access. I attempted POCUS at bedside bilateral upper extremities and was unsuccessful - would get blood return but sites wouldn't subsequently flush or, on the left, extravasated. Patient given PO Zofran and, as feeling better, was able to po challenge. I had patient drink more than just a cup of water given the 4+ ketones in urine. She is keeping it down and appears more comfortable at this time. She states she often seems to get very nauseated and vomit around the time of her menstrual period like this. She has asked her PCP and radio host before but they are both men and she feels like she hasn't gotten a response. We discussed that some women are very symptomatic around the time of menses. Advised she follow up with her OBGyn who may have more targetted advice/recommendations. Discharged home in stable condition with Rx for Zofran. Differential Diagnosis Differential diagnosis: Likely gastroenteritis, drug-induced nausea and vomiting, dehydration and other (diabetic issues/considered DKA; UTI; ; acute viral syndrome/influenza/covid) Lab Data Attestation: I reviewed the patient's lab results. 06/07/24 02:17 06/07/24 02:17 Labs: Lab Results 06/06/24 06/07/24 06/07/24 Range/Units 22:58 02:03 02:17 WBC 12.9 H (4.5-10.0) K/mm3 RBC 5.01 (4.2-5.4) M/mm3 Hgb 14.2 (12.0-15.0) g/dL Hct 43.0 (37.0-47.0) % MCV 85.8 (80-100) fl MCH 28.3 (26-34) pg MCHC 33.0 (32-36) g/dl RDW 13.3 (11.5-14.5) % Plt Count 514 H (150-375) k/mm3 MPV 8.6 (7.4-10.4) fl Immature Gran % (Auto) 0.3 (0-0.5) % Neut % (Auto) 78.1 H (45.5-73.1) % Lymph % (Auto) 13.6 L (18.3-44.2) % [place] % (Auto) 7.6 (2.6-8.5) % Eos % (Auto) 0.2 (0-4.4) % Baso % (Auto) 0.2 (0.2-1.2) % Lymph # (Auto) 1.75 (0.9-3.2) K/mm3 [place] # (Auto) 1.0 H (0.1-0.6) K/mm3 Eos # (Auto) 0.0 (0-0.3) K/mm3 Baso # (Auto) 0.0 (0.0-0.1) K/mm3 Abs Immat Gran (auto) 0.04 H (0.00-0.031) K/mm3 Absolute Neuts (auto) 10.1 H (1.3-6.7) K/mm3 Absolute Nucleated RBC 0.000 (0.0-0.012) K/mm3 Nucleated RBC % 0.0 (0.0-0.2) % Sodium 138 (137-145) mmol/L Potassium 3.8 (3.4-5.0) mmol/L Chloride 102 (98-107) mmol/L Carbon Dioxide 18 L (22-30) mmol/L Anion Gap 18 H (4-12) mmol/L BUN 22 H D (7-17) mg/dL Creatinine 0.49 L (0.7-1.0) mg/dL Estim Creat Clear Calc 135 ml/min Estimated GFR > 60 (59 - ) Glucose 103 (65-110) mg/dL POC Capillary Glucose 110 H (65-105) mg/dl Calcium 9.9 (8.4-10.2) mg/dL Total Bilirubin 1.1 (0.2-1.3) mg/dL AST 21 (14-36) U/L ALT 16 (6-35) U/L Alkaline Phosphatase 68 (38-126) U/L Total Protein 8.0 (6.3-8.2) g/dL Albumin 4.7 (3.5-5.1) g/dL Lipase 22 L (23-300) U/L Urine Color (Yellow) Urine Appearance (Clear) Urine pH (5.0-9.0) Ur Specific [place] (1.001-1.035) Urine Protein (Negative) mg/dL Urine Glucose (UA) (Negative) mg/dL Urine Ketones (Negative) mg/dL Ur Blood (Man) (Negative) Urine Nitrate (Negative) Urine Bilirubin (Negative) Urine Urobilinogen (<2.0) mg/dL Add Ur Microanalysis Leukocyte Esterase Rfl (Negative) JEWEL/UL Urine RBC (0-2) /hpf Urine WBC (0-3) /hpf Ur Squamous Epith Cells (Few) /hpf Urine Bacteria /hpf Urine Casts POC Urine HCG, Qual (Negative) Influenza A (RT-PCR) Negative (Negative) Influenza B (RT-PCR) Negative (Negative) RSV (RT-PCR) Negative (Negative) SARS-CoV-2 RNA (RT-PCR) Negative (Negative) 06/07/24 06/07/24 Range/Units 06:25 06:27 WBC (4.5-10.0) K/mm3 RBC (4.2-5.4) M/mm3 Hgb (12.0-15.0) g/dL Hct (37.0-47.0) % MCV (80-100) fl MCH (26-34) pg MCHC (32-36) g/dl RDW (11.5-14.5) % Plt Count (150-375) k/mm3 MPV (7.4-10.4) fl Immature Gran % (Auto) (0-0.5) % Neut % (Auto) (45.5-73.1) % Lymph % (Auto) (18.3-44.2) % [place] % (Auto) (2.6-8.5) % Eos % (Auto) (0-4.4) % Baso % (Auto) (0.2-1.2) % Lymph # (Auto) (0.9-3.2) K/mm3 [place] # (Auto) (0.1-0.6) K/mm3 Eos # (Auto) (0-0.3) K/mm3 Baso # (Auto) (0.0-0.1) K/mm3 Abs Immat Gran (auto) (0.00-0.031) K/mm3 Absolute Neuts (auto) (1.3-6.7) K/mm3 Absolute Nucleated RBC (0.0-0.012) K/mm3 Nucleated RBC % (0.0-0.2) % Sodium (137-145) mmol/L Potassium (3.4-5.0) mmol/L Chloride (98-107) mmol/L Carbon Dioxide (22-30) mmol/L Anion Gap (4-12) mmol/L BUN (7-17) mg/dL Creatinine (0.7-1.0) mg/dL Estim Creat Clear Calc ml/min Estimated GFR (59 - ) Glucose (65-110) mg/dL POC Capillary Glucose (65-105) mg/dl Calcium (8.4-10.2) mg/dL Total Bilirubin (0.2-1.3) mg/dL AST (14-36) U/L ALT (6-35) U/L Alkaline Phosphatase (38-126) U/L Total Protein (6.3-8.2) g/dL Albumin (3.5-5.1) g/dL Lipase (23-300) U/L Urine Color Dark yellow (Yellow) Urine Appearance Clear (Clear) Urine pH 6.0 (5.0-9.0) Ur Specific [place] 1.037 H (1.001-1.035) Urine Protein 2+ H (Negative) mg/dL Urine Glucose (UA) Negative (Negative) mg/dL Urine Ketones 4+ H (Negative) mg/dL Ur Blood (Man) 2+ H (Negative) Urine Nitrate Negative (Negative) Urine Bilirubin 1+ H (Negative) Urine Urobilinogen 1.0 (<2.0) mg/dL Add Ur Microanalysis Reviewed Leukocyte Esterase Rfl Negative (Negative) JEWEL/UL Urine RBC 0-2 (0-2) /hpf Urine WBC 0-5 (0-3) /hpf Ur Squamous Epith Cells Occasional (Few) /hpf Urine Bacteria None seen /hpf Urine Casts 3-5 POC Urine HCG, Qual Negative (Negative) Influenza A (RT-PCR) (Negative) Influenza B (RT-PCR) (Negative) RSV (RT-PCR) (Negative) SARS-CoV-2 RNA (RT-PCR) (Negative) Discharge Plan Discharge Clinical Impression: Leukocytosis, Thrombocytosis, Menstrual cycle problem, Nausea & vomiting, Ketonuria Patient Disposition: Home, Self-Care Condition: Stable Instructions: Antibiotic Form, Acute Nausea and Vomiting (DC), Leukocytosis (ED) Additional Instructions: As we discussed, your workup was generally unremarkable except you had an elevated white count and platelet count and I suspect these are due to a degree of dehydration. Now that we are better controlling her nausea and vomiting you are able to maintain your hydration. Drink plenty of fluids and rest. We are prescribing you the medication that helped with your nausea and vomiting while you are here. Follow-up with your primary care physician, radio host, and OB Gyne regarding her concerns. Returning to the emergency department with any new or worsening symptoms Patient Language: Congolese Prescriptions: New ondansetron 4 mg tablet,disintegrating 4 mg PO Q8H PRN (Reason: nausea and vomiting) Qty: 7 0RF No Action insulin lispro 100 unit/mL solution See Rx Instructions .ROUTE .COMPLEX Rx Instructions: insulin pump; basal rate of 8 doxylamine-pyridoxine (vit B6) 20-20 mg tablet,IR,delayed rel,biphasic 1 tablet PO HS Qty: 10 0RF promethazine 12.5 mg tablet 12.5 mg PO TID PRN (Reason: nausea and vomiting) Qty: 4 0RF ondansetron 4 mg tablet,disintegrating 4 mg PO Q8H Qty: 14 0RF doxylamine-pyridoxine (vit B6) 10-10 mg tablet,delayed release (DR/EC) 1 tablet PO DAILY Qty: 20 0RF Classic 28 mg iron- 800 mcg tablet 1 tablet PO DAILY 30 Days Qty: 30 0RF Follow-up/Referrals: Harley Jauregui MD [Primary Care Provider] - Stand Alone Forms: Work/School Release IP Time of Disposition: 08:26
[2024-06-07 02:23] LABS: Basophils Percent Auto 0.2 % (0.2-1.2); Eosinophils Percent Auto 0.2 % (0-4.4); Hemoglobin 14.2 g/dL (12.0-15.0); Immature Granulocyte Absolute 0.04 K/mm3 (0.00-0.031); Immature Granulocyte Percent A 0.3 % (0-0.5); Lymphocytes Absolute Auto 1.75 K/mm3 (0.9-3.2); Lymphocytes Percent Auto 13.6 % (18.3-44.2); Mean Corpuscular Hemoglobin 28.3 pg (26-34); Mean Corpuscular Volume 85.8 fl (80-100); Mean Platelet Volume 8.6 fl (7.4-10.4); Monocytes Percent Auto 7.6 % (2.6-8.5); Neutrophils Absolute Auto 10.1 K/mm3 (1.3-6.7); Neutrophils Percent Auto 78.1 % (45.5-73.1); Platelet Count Result 514 k/mm3 (150-375); Red Blood Count 5.01 M/mm3 (4.2-5.4); Red Cell Distribution Width 13.3 % (11.5-14.5); White Blood Count 12.9 K/mm3 (4.5-10.0)
[2024-06-07 02:33] LABS: Alanine Aminotransferase 16 U/L (6-35); Albumin Level 4.7 g/dL (3.5-5.1); Alkaline Phosphatase 68 U/L (38-126); Anion Gap 18 mmol/L (4-12); Aspartate Amino Transferase 21 U/L (14-36); Bilirubin,Total 1.1 mg/dL (0.2-1.3); Blood Urea Nitrogen 22 mg/dL (7-17); Calcium 9.9 mg/dL (8.4-10.2); Carbon Dioxide 18 mmol/L (22-30); Chloride 102 mmol/L (98-107); Estimated CRCL calculation 135 ml/min; Estimated Glomerular Filt Rate > 60; Glucose 103 mg/dL (65-110); Lipase 22 U/L (23-300); Potassium 3.8 mmol/L (3.4-5.0); Sodium 138 mmol/L (137-145)
[2024-06-07 02:43] LABS: Influenza A QL RT-PCR Negative (Negative); Influenza B QL RT-PCR Negative (Negative); RSV RNA, RT-PCR Negative (Negative); SARS-CoV-2 RNA PCR Negative (Negative)
[2024-06-07 05:00] VITALS: BP 116/79; PULSE 108; RESP 20; O2SAT 97
--- NOTE | 2024-06-07 05:04 | PC.NURSE ---
DARSHANAP attempted IV via ultrasound without success.
[2024-06-07 06:00] VITALS: BP 111/71; PULSE 99; RESP 16; O2SAT 98
[2024-06-07] MEDS: ONDANSETRON HCL ODT 4 MG TABLET PO (06:25)
[2024-06-07 06:29] LABS: BEDSIDEPREGUCG Negative (Negative)
[2024-06-07 06:58] LABS: Add Urine Microscopic? YES; Appearance Urine Clear (Clear); Bacteria Urine None Seen /hpf; Bilirubin Urine 1+ (Negative); Blood Urine 2+ (Negative); Color Urine Dark Yellow (Yellow); Glucose Urine UA Negative (Negative); Ketones Urine 4+ mg/dL (Negative); Leukocyte Esterase Ur Negative LEU/UL (Negative); Need Manual Microscopic Reviewed; Nitrate Urine Negative (Negative); Protein Urine 2+ mg/dL (Negative); RBC Urine 0-2 /hpf (0-2); Specific Grav Ur 1.037 (1.001-1.035); Squamous Epithelial Cell Urine Occasional /hpf (Few); WBC Urine 0-5 /hpf (0-3)
[2024-06-07 07:45] VITALS: BP 123/84; PULSE 100; RESP 16; TEMP 36.6; O2SAT 100
== END 2024-06-07 08:36 | disposition home or self-care (01) ==
PROVIDERS: Emergency Provider Student in an Organized Health Care Education/Training Program; PCP Emergency Medicine
DX: D72.829 Elevated white blood cell count, unspecified (principal); D75.839 Thrombocytosis, unspecified; N92.6 Irregular menstruation, unspecified; R11.2 Nausea with vomiting, unspecified; R82.4 Acetonuria; Z20.822 Contact with and (suspected) exposure to COVID-19; E10.9 Type 1 diabetes mellitus without complications; F41.9 Anxiety disorder, unspecified; Z79.4 Long term (current) use of insulin
CPT/HCPCS: 36415; 71045; 80053; 81001; 81025; 82948; 83690; 85025; 87637; 96361; 96374; 99284; A9270

== ENCOUNTER 2024-07-18 11:09 | Emergency (ER) | payer OTHER, SELFPAY ==
[2024-07-18] VITALS (50 sets, daily range): BP systolic 100–161; BP diastolic 61–115; PULSE 81–141; RESP 11–26; TEMP 36.4; O2SAT 92–100
[2024-07-18 11:19] LABS: Glucose Point of Care 212 mg/dl (65-105)
[2024-07-18 11:35] LABS: BEDSIDEPREGUCG Negative (Negative)
--- NOTE | 2024-07-18 11:45 | ED_ITS ---
HPI - Nausea/Vomiting/Diarrhea General Chief complaint: Nausea/Vomiting/Diarrhea Stated complaint: N/V/D x3 days BGL 200-300 Time Seen by Provider: 07/18/24 11:39 Source: patient Mode of arrival: ambulatory History of Present Illness HPI Narrative: Patient presents with report of nausea, nonbloody emesis, and nonbloody diarrhea of 3 days duration. She has a history of type 1 diabetes mellitus and states that her blood sugars have ranged from 200-300. She denies any abdominal pain. She changed insurance and this meant that her system of continuous glucose monitoring and insulin administration changed. Currently taking long-acting Lantus, 22 units q.h.s. and she does report that she took this dose last night. Her short-acting is given as a sliding scale and she states that her fiance helped administer a dose of this this morning. She states that she often has issues with blood glucose regulation as well as intractable nausea and vomiting around the time of her menses which is something we had discussed previously. However, she reports that her last menstrual period was 06/07/2024. Reports irregular periods at baseline. Denies any fevers, chills, cough, or myalgias. Related Data Home Medications ?Medication ?Instructions ?Recorded ?Confirmed ?Last Taken ?Type insulin lispro 100 unit/mL See Rx Instructions .Route .COMPLEX 02/28/24 02/28/24 Unknown History subcutaneous solution Allergies Allergy/AdvReac Type Severity Reaction Status Date / Time No Known Allergies Allergy Unknown Verified 07/18/24 11:10 [facility] Past Medical History Medical History History of premature delivery History of miscarriage Type 1 diabetes mellitus Gastric ulcer On EGD at [facility] Anxiety Finger fracture Abdominal pain Chronic abdominal pain Surgical History Surgical History Hx of dilation and curettage x3 including 2019 following missed ab and in May 2024 after miscarriage Hx of section 2017 Hx of tonsillectomy Family History Family History Mother Family history of anemia Father Unknown family medical history Other Family history of arthritis Family history of hepatitis Family history of liver disease Social History Social History Social History: She lives at home with her 7-year-old daughter and her 1-year-old. She denies any alcohol tobacco or illicit substance use. she is engaged to be . Code status: Full code Surrogate decision maker: Karen Fuchs (mother) Smoking status: Never smoker Alcohol intake: never Substance use: never Substance use type: does not use Do You Feel Safe in your Home?: Yes Lack of Transportation: No Lack of Food: Never True Current Housing: I Have Housing Concerned About Future Housing: No Difficulty Paying Gas/Electric Bills: No Difficulty Paying for Meds: No Currently Unemployed: No Education: Bachelor's Degree Difficulty w/ Childcare or Family Care: No Spiritual care concerns: No Agree to blood products: Yes Exam 2 Narrative: GENERAL: well-nourished, and in no acute distress. HEAD: Normocephalic, atraumatic. EYES: Non injected, non icteric ENT: Nares clear, no rhinorrhea or epistaxis. Moist mucous membranes NECK: Supple. CHEST: Speaking in full sentences. No respiratory distress. HEART: Tachycardic rate and rhythm. . ABDOMEN: Soft, nondistended. EXTREMITIES: Normal range of motion. No lower extremity edema. SKIN: Warm, dry, no rash. NEURO: No focal deficits. Alert and oriented x3. PSYCH: Congruent mood and affect; flat Course Vital Signs Vital signs: Vital Signs Temperature 97.6 F 07/18/24 11:15 Pulse Rate 134 H 07/18/24 11:15 Respiratory Rate 16 07/18/24 11:15 Blood Pressure 137/100 H 07/18/24 11:15 Pulse Oximetry 100 07/18/24 11:15 Oxygen Delivery Room Air 07/18/24 11:15 Temperature 97.6 F 07/18/24 11:15 Pulse Rate 87 07/18/24 20:20 Respiratory Rate 18 07/18/24 20:20 Blood Pressure 148/88 H 07/18/24 20:20 Pulse Oximetry 100 07/18/24 20:20 Oxygen Delivery Room Air 07/18/24 11:15 MDM - Nausea/Vomiting/Diarrhea MDM Narrative Medical decision making narrative: Patient with past medical history type 1 diabetes mellitus presents with nausea, vomiting, diarrhea of 3 days duration and also abnormal blood glucose, ranging in the 200s and 300s at home. In the emergency department she is afebrile with vital signs notable for tachycardia at a rate of 134 beats per minute. She also has an elevated diastolic blood pressure. Point of care glucose in triage was 212 mg/dL. 1 L IV fluids was ordered as well as ondansetron initially. She has leukocytosis and thrombocytosis, both of which are chronic. Beta hydroxybutyrate nearly 4. She has hyperglycemia with anion gap, mildly acidotic although not frankly so (>15). She also has 4+ ketonuria. Partial correction of sodium (135-136) in the setting of her hyperglycemia. Potassium ok. Also borderline/soft call, initially DKA protocol ordered and discussed admission with patient. However, before insulin administered, POC glucose noted to be <200. Additional 1L IV Fluids ordered as is 2.5mg haloperidol and diphenhydramine given patient states she remains nauseated. Repeat BMP also improved. In fact, anion gap nearly normalized. At this time, it appears that patient might have a stronger component of starvation ketosis. She is given dextrose containing fluids at this time. Still reports nausea though has not vomited while in the ED. Repeat BMP with hyperglycemia but no anion gap no acidosis at this time. test negative. Patient is evaluated multiple times and appears drowsy secondary to medications but is resting comfortably protecting her airway. Each time she has a woken and ask how she is doing, she states she continues to have nausea. She has not vomited in over 8 hours while in the emergency department and otherwise appears very comfortable. Does not appear that there is an indication to admit her at this time. Discussed the possibility and if she feels comfortable with going home to rest. She shrugs her shoulders, appears indifferent, states I guess. Tachycardia has resolved. Discharged home in stable condition. Provided Rx for an additional antiemetic. Differential Diagnosis Differential diagnosis: Likely traveler's diarrhea, food poisoning, gastroenteritis, drug-induced nausea and vomiting, dehydration and other (DKA, glycemic dysregulation; acute viral syndrome; pancreatitis) Lab Data Attestation: I reviewed the patient's lab results. 07/18/24 12:14 07/18/24 18:52 Labs: Lab Results 07/18/24 07/18/24 07/18/24 Range/Units 11:17 11:27 12:11 WBC (4.5-10.0) K/mm3 RBC (4.2-5.4) M/mm3 Hgb (12.0-15.0) g/dL Hct (37.0-47.0) % MCV (80-100) fl MCH (26-34) pg MCHC (32-36) g/dl RDW (11.5-14.5) % Plt Count (150-375) k/mm3 MPV (7.4-10.4) fl Immature Gran % (Auto) (0-0.5) % Neut % (Auto) (45.5-73.1) % Lymph % (Auto) (18.3-44.2) % Whitman % (Auto) (2.6-8.5) % Eos % (Auto) (0-4.4) % Baso % (Auto) (0.2-1.2) % Lymph # (Auto) (0.9-3.2) K/mm3 Whitman # (Auto) (0.1-0.6) K/mm3 Eos # (Auto) (0-0.3) K/mm3 Baso # (Auto) (0.0-0.1) K/mm3 Abs Immat Gran (auto) (0.00-0.031) K/mm3 Absolute Neuts (auto) (1.3-6.7) K/mm3 Absolute Nucleated RBC (0.0-0.012) K/mm3 Nucleated RBC % (0.0-0.2) % Sodium 133 L (137-145) mmol/L Potassium 4.1 (3.4-5.0) mmol/L Chloride 95 L (98-107) mmol/L Carbon Dioxide 20 L (22-30) mmol/L Anion Gap 18 H (4-12) mmol/L BUN 23 H (7-17) mg/dL Creatinine 0.64 L (0.7-1.0) mg/dL Estim Creat Clear Calc Not Reportable Estimated GFR > 60 (59 - ) Glucose 218 H (65-110) mg/dL POC Capillary Glucose 212 H (65-105) mg/dl Hemoglobin A1c (<5.7) % Calcium 10.1 (8.4-10.2) mg/dL Phosphorus (2.5-4.5) mg/dL Magnesium (1.6-2.3) mg/dL Total Bilirubin 1.4 H (0.2-1.3) mg/dL AST 20 (14-36) U/L ALT 18 (6-35) U/L Alkaline Phosphatase 87 (38-126) U/L Total Protein 8.0 (6.3-8.2) g/dL Albumin 5.0 (3.5-5.1) g/dL Lipase (23-300) U/L Beta-Hydroxybutyrate/Acetoacetate (0.02-0.27) mmol/L Urine Color (Yellow) Urine Appearance (Clear) Urine pH (5.0-9.0) Ur Specific Prichard (1.001-1.035) Urine Protein (Negative) mg/dL Urine Glucose (UA) (Negative) mg/dL Urine Ketones (Negative) mg/dL Ur Blood (Man) (Negative) Urine Nitrate (Negative) Urine Bilirubin (Negative) Urine Urobilinogen (<2.0) mg/dL Add Ur Microanalysis Leukocyte Esterase Rfl (Negative) JEWEL/UL Urine RBC (0-2) /hpf Urine WBC (0-3) /hpf Ur Squamous Epith Cells (Few) /hpf Urine Bacteria /hpf Urine Casts POC Urine HCG, Qual Negative (Negative) Urine Test Influenza A (RT-PCR) (Negative) Influenza B (RT-PCR) (Negative) RSV (RT-PCR) (Negative) SARS-CoV-2 RNA (RT-PCR) (Negative) 07/18/24 07/18/24 07/18/24 Range/Units 12:12 12:12 12:14 WBC 12.8 H (4.5-10.0) K/mm3 RBC 5.00 (4.2-5.4) M/mm3 Hgb 13.9 (12.0-15.0) g/dL Hct 41.3 (37.0-47.0) % MCV 82.6 (80-100) fl MCH 27.8 (26-34) pg MCHC 33.7 (32-36) g/dl RDW 14.6 H (11.5-14.5) % Plt Count 527 H (150-375) k/mm3 MPV 9.1 (7.4-10.4) fl Immature Gran % (Auto) 0.4 (0-0.5) % Neut % (Auto) 73.0 (45.5-73.1) % Lymph % (Auto) 16.1 L (18.3-44.2) % Whitman % (Auto) 10.3 H (2.6-8.5) % Eos % (Auto) 0.0 (0-4.4) % Baso % (Auto) 0.2 (0.2-1.2) % Lymph # (Auto) 2.06 (0.9-3.2) K/mm3 Whitman # (Auto) 1.3 H (0.1-0.6) K/mm3 Eos # (Auto) 0.0 (0-0.3) K/mm3 Baso # (Auto) 0.0 (0.0-0.1) K/mm3 Abs Immat Gran (auto) 0.05 H (0.00-0.031) K/mm3 Absolute Neuts (auto) 9.3 H (1.3-6.7) K/mm3 Absolute Nucleated RBC 0.000 (0.0-0.012) K/mm3 Nucleated RBC % 0.0 (0.0-0.2) % Sodium (137-145) mmol/L Potassium (3.4-5.0) mmol/L Chloride (98-107) mmol/L Carbon Dioxide (22-30) mmol/L Anion Gap (4-12) mmol/L BUN (7-17) mg/dL Creatinine (0.7-1.0) mg/dL Estim Creat Clear Calc Estimated GFR (59 - ) Glucose (65-110) mg/dL POC Capillary Glucose (65-105) mg/dl Hemoglobin A1c (<5.7) % Calcium (8.4-10.2) mg/dL Phosphorus (2.5-4.5) mg/dL Magnesium 1.8 Cancelled (1.6-2.3) mg/dL Total Bilirubin (0.2-1.3) mg/dL AST (14-36) U/L ALT (6-35) U/L Alkaline Phosphatase (38-126) U/L Total Protein (6.3-8.2) g/dL Albumin (3.5-5.1) g/dL Lipase 28 (23-300) U/L Beta-Hydroxybutyrate/Acetoacetate 3.94 H (0.02-0.27) mmol/L Urine Color (Yellow) Urine Appearance (Clear) Urine pH (5.0-9.0) Ur Specific Prichard (1.001-1.035) Urine Protein (Negative) mg/dL Urine Glucose (UA) (Negative) mg/dL Urine Ketones (Negative) mg/dL Ur Blood (Man) (Negative) Urine Nitrate (Negative) Urine Bilirubin (Negative) Urine Urobilinogen (<2.0) mg/dL Add Ur Microanalysis Leukocyte Esterase Rfl (Negative) JEWEL/UL Urine RBC (0-2) /hpf Urine WBC (0-3) /hpf Ur Squamous Epith Cells (Few) /hpf Urine Bacteria /hpf Urine Casts POC Urine HCG, Qual (Negative) Urine Test Influenza A (RT-PCR) (Negative) Influenza B (RT-PCR) (Negative) RSV (RT-PCR) (Negative) SARS-CoV-2 RNA (RT-PCR) (Negative) 07/18/24 07/18/24 07/18/24 Range/Units 12:54 14:46 16:54 WBC (4.5-10.0) K/mm3 RBC (4.2-5.4) M/mm3 Hgb (12.0-15.0) g/dL Hct (37.0-47.0) % MCV (80-100) fl MCH (26-34) pg MCHC (32-36) g/dl RDW (11.5-14.5) % Plt Count (150-375) k/mm3 MPV (7.4-10.4) fl Immature Gran % (Auto) (0-0.5) % Neut % (Auto) (45.5-73.1) % Lymph % (Auto) (18.3-44.2) % Whitman % (Auto) (2.6-8.5) % Eos % (Auto) (0-4.4) % Baso % (Auto) (0.2-1.2) % Lymph # (Auto) (0.9-3.2) K/mm3 Whitman # (Auto) (0.1-0.6) K/mm3 Eos # (Auto) (0-0.3) K/mm3 Baso # (Auto) (0.0-0.1) K/mm3 Abs Immat Gran (auto) (0.00-0.031) K/mm3 Absolute Neuts (auto) (1.3-6.7) K/mm3 Absolute Nucleated RBC (0.0-0.012) K/mm3 Nucleated RBC % (0.0-0.2) % Sodium 134 L (137-145) mmol/L Potassium 4.1 (3.4-5.0) mmol/L Chloride 102 (98-107) mmol/L Carbon Dioxide 19 L (22-30) mmol/L Anion Gap 13 H (4-12) mmol/L BUN 20 H (7-17) mg/dL Creatinine 0.46 L (0.7-1.0) mg/dL Estim Creat Clear Calc Not Reportable Estimated GFR > 60 (59 - ) Glucose 157 H (65-110) mg/dL POC Capillary Glucose 176 H (65-105) mg/dl Hemoglobin A1c 5.9 H (<5.7) % Calcium 8.5 (8.4-10.2) mg/dL Phosphorus 2.3 L (2.5-4.5) mg/dL Magnesium (1.6-2.3) mg/dL Total Bilirubin (0.2-1.3) mg/dL AST (14-36) U/L ALT (6-35) U/L Alkaline Phosphatase (38-126) U/L Total Protein (6.3-8.2) g/dL Albumin (3.5-5.1) g/dL Lipase (23-300) U/L Beta-Hydroxybutyrate/Acetoacetate (0.02-0.27) mmol/L Urine Color Yellow (Yellow) Urine Appearance Turbid H (Clear) Urine pH 6.0 (5.0-9.0) Ur Specific Prichard 1.041 H (1.001-1.035) Urine Protein 1+ H (Negative) mg/dL Urine Glucose (UA) 3+ H (Negative) mg/dL Urine Ketones 4+ H (Negative) mg/dL Ur Blood (Man) Negative (Negative) Urine Nitrate Negative (Negative) Urine Bilirubin Negative (Negative) Urine Urobilinogen 0.2 (<2.0) mg/dL Add Ur Microanalysis Reviewed Leukocyte Esterase Rfl Negative (Negative) JEWEL/UL Urine RBC 0-2 (0-2) /hpf Urine WBC 0-5 (0-3) /hpf Ur Squamous Epith Cells Occasional (Few) /hpf Urine Bacteria Rare /hpf Urine Casts 0-2 POC Urine HCG, Qual (Negative) Urine Test Negative Influenza A (RT-PCR) Negative (Negative) Influenza B (RT-PCR) Negative (Negative) RSV (RT-PCR) Negative (Negative) SARS-CoV-2 RNA (RT-PCR) Negative (Negative) 07/18/24 07/18/24 Range/Units 16:59 18:52 WBC (4.5-10.0) K/mm3 RBC (4.2-5.4) M/mm3 Hgb (12.0-15.0) g/dL Hct (37.0-47.0) % MCV (80-100) fl MCH (26-34) pg MCHC (32-36) g/dl RDW (11.5-14.5) % Plt Count (150-375) k/mm3 MPV (7.4-10.4) fl Immature Gran % (Auto) (0-0.5) % Neut % (Auto) (45.5-73.1) % Lymph % (Auto) (18.3-44.2) % Whitman % (Auto) (2.6-8.5) % Eos % (Auto) (0-4.4) % Baso % (Auto) (0.2-1.2) % Lymph # (Auto) (0.9-3.2) K/mm3 Whitman # (Auto) (0.1-0.6) K/mm3 Eos # (Auto) (0-0.3) K/mm3 Baso # (Auto) (0.0-0.1) K/mm3 Abs Immat Gran (auto) (0.00-0.031) K/mm3 Absolute Neuts (auto) (1.3-6.7) K/mm3 Absolute Nucleated RBC (0.0-0.012) K/mm3 Nucleated RBC % (0.0-0.2) % Sodium 132 L (137-145) mmol/L Potassium 3.9 (3.4-5.0) mmol/L Chloride 102 (98-107) mmol/L Carbon Dioxide 22 (22-30) mmol/L Anion Gap 8 (4-12) mmol/L BUN 19 H (7-17) mg/dL Creatinine 0.49 L (0.7-1.0) mg/dL Estim Creat Clear Calc Not Reportable Estimated GFR > 60 (59 - ) Glucose 352 H (65-110) mg/dL POC Capillary Glucose 160 H (65-105) mg/dl Hemoglobin A1c (<5.7) % Calcium 7.8 L (8.4-10.2) mg/dL Phosphorus (2.5-4.5) mg/dL Magnesium (1.6-2.3) mg/dL Total Bilirubin (0.2-1.3) mg/dL AST (14-36) U/L ALT (6-35) U/L Alkaline Phosphatase (38-126) U/L Total Protein (6.3-8.2) g/dL Albumin (3.5-5.1) g/dL Lipase (23-300) U/L Beta-Hydroxybutyrate/Acetoacetate (0.02-0.27) mmol/L Urine Color (Yellow) Urine Appearance (Clear) Urine pH (5.0-9.0) Ur Specific Prichard (1.001-1.035) Urine Protein (Negative) mg/dL Urine Glucose (UA) (Negative) mg/dL Urine Ketones (Negative) mg/dL Ur Blood (Man) (Negative) Urine Nitrate (Negative) Urine Bilirubin (Negative) Urine Urobilinogen (<2.0) mg/dL Add Ur Microanalysis Leukocyte Esterase Rfl (Negative) JEWEL/UL Urine RBC (0-2) /hpf Urine WBC (0-3) /hpf Ur Squamous Epith Cells (Few) /hpf Urine Bacteria /hpf Urine Casts POC Urine HCG, Qual (Negative) Urine Test Influenza A (RT-PCR) (Negative) Influenza B (RT-PCR) (Negative) RSV (RT-PCR) (Negative) SARS-CoV-2 RNA (RT-PCR) (Negative) Discharge Plan Discharge Clinical Impression: Hyperglycemia due to diabetes mellitus, Leukocytosis, Thrombocytosis, Elevated beta-hydroxybutyrate Patient Disposition: Home, Self-Care Condition: Stable Instructions: Antibiotic Form, Leukocytosis (ED), Diabetic Hyperglycemia (ED) Patient Language: Turkish Prescriptions: New prochlorperazine maleate [Compazine] 10 mg tablet 10 mg PO Q8H PRN (Reason: nausea and vomiting) Qty: 15 0RF No Action insulin lispro 100 unit/mL solution See Rx Instructions .ROUTE .COMPLEX Rx Instructions: insulin pump; basal rate of 8 doxylamine-pyridoxine (vit B6) 20-20 mg tablet,IR,delayed rel,biphasic 1 tablet PO HS Qty: 10 0RF promethazine 12.5 mg tablet 12.5 mg PO TID PRN (Reason: nausea and vomiting) Qty: 4 0RF ondansetron 4 mg tablet,disintegrating 4 mg PO Q8H Qty: 14 0RF doxylamine-pyridoxine (vit B6) 10-10 mg tablet,delayed release (DR/EC) 1 tablet PO DAILY Qty: 20 0RF Classic 28 mg iron- 800 mcg tablet 1 tablet PO DAILY 30 Days Qty: 30 0RF ondansetron 4 mg tablet,disintegrating 4 mg PO Q8H PRN (Reason: nausea and vomiting) Qty: 7 0RF Follow-up/Referrals: Harley Jauregui MD [Primary Care Provider] - Stand Alone Forms: Work/School Release IP Time of Disposition: 20:05
[2024-07-18] MEDS: SODIUM CHLORIDE 0.9% IV 1,000 ML 999 ML IV CONT ×2 (12:22→15:10)
[2024-07-18] MEDS: ONDANSETRON INJ 4 MG/2 ML VIAL IV PUSH (12:26)
[2024-07-18 12:42] LABS: Basophils Percent Auto 0.2 % (0.2-1.2); Hematocrit 41.3 % (37.0-47.0); Hemoglobin 13.9 g/dL (12.0-15.0); Immature Granulocyte Absolute 0.05 K/mm3 (0.00-0.031); Immature Granulocyte Percent A 0.4 % (0-0.5); Lymphocytes Absolute Auto 2.06 K/mm3 (0.9-3.2); Lymphocytes Percent Auto 16.1 % (18.3-44.2); Mean Corpuscular HGB Conc 33.7 g/dl (32-36); Mean Corpuscular Hemoglobin 27.8 pg (26-34); Mean Corpuscular Volume 82.6 fl (80-100); Mean Platelet Volume 9.1 fl (7.4-10.4); Monocytes Absolute Auto 1.3 K/mm3 (0.1-0.6); Monocytes Percent Auto 10.3 % (2.6-8.5); Neutrophils Absolute Auto 9.3 K/mm3 (1.3-6.7); Platelet Count Result 527 k/mm3 (150-375); Red Cell Distribution Width 14.6 % (11.5-14.5); White Blood Count 12.8 K/mm3 (4.5-10.0)
--- OUTSIDE RECORDS SUMMARY | 2024-07-18 12:48 | XMS_ITS | Clinical Summary ---
Author Organization [facility] Address [address] [place] [address] Phone Care Team Providers Care Supervisor Cell Maintenance Name Role Phone Naomi Sanches MD Unavailable Genie Reid MD Primary Care Provider [phone] Allergies No known active allergies Medications Glucose Blood (BLOOD GLUCOSE TEST STRIPS) Strip 1 Strip by Does not apply route 4 times daily. 400 Each 3 0 Active ReliOn Pen Beasley 32G X 4 MM Misc 4 times [...] line. 10 Tablet 4 Active Continuous Glucose Market Research Analyst (Dexcom G7 Market Research Analyst) Device Check blood glucose before each meal and at bedtime 1 Each 4 Active Continuous Glucose Sensor (Dexcom G7 Sensor) Misc Every 10 days 9 Each 3 4 Active insulin lispro (HumaLOG) 100 UNIT/ML Solution INJECT UP TO 90 UNITS UNDER THE SKIN PER DAY PER INSULIN PUMP SETTINGS 90 mL 1 5 Active Active Problems Problem Noted Date Diagnosed Date Class 1 obesity due to exces s calories with serious comorbidity and body mass index (BMI) of 32.0 to 32.9 in adult 11/16/2019 Type 1 diabetes mellitus without complication Hypoglycemia 11/11/2018 Diabetic ketoacidosis associ ated with type 1 diabetes mellitus 01/03/2017 Hyperkalemia 01/03/2017 Hypernatremia 01/03/2017 Encounters Date Type Department Care Team Description 05/25/2024 9:15 AM ELECTRICAL APPLIANCE REPAIRER Office Visit [facility] - Endocrinology [facility] [address] [place] [address] Naomi Sanches MD Type 1 diabetes mellitus without complication (HCC) (Primary Dx); Class 1 obesity due to excess calories with serious comorbidity and body mass index (BMI) of 32.0 to 32.9 in adult; Hypoglycemia; Insulin pump titration Discharge Disposition: Discharged to home or Selfcare 05/23/2024 Travel from Last 3 Months Immunizations Immunization Administration [...] Comments Blood Pressure 120/74 05/25/2024 9:10 AM ELECTRICAL APPLIANCE REPAIRER Pulse 107 05/25/2024 9:10 AM ELECTRICAL APPLIANCE REPAIRER Temperature 36.3 C (97.3 F) 05/25/2024 9:10 AM ELECTRICAL APPLIANCE REPAIRER Respiratory Rate 22 05/25/2024 9:10 AM ELECTRICAL APPLIANCE REPAIRER Oxygen Saturation 97% 05/25/2024 9:10 AM ELECTRICAL APPLIANCE REPAIRER Inhaled Oxygen Concentration - - Weight 80.3 kg (177 lb) 05/25/2024 9:10 AM ELECTRICAL APPLIANCE REPAIRER Height 157.5 cm (5' 2 ) 05/25/2024 9:10 AM ELECTRICAL APPLIANCE REPAIRER Body Mass Index 32.37 05/25/2024 9:10 AM ELECTRICAL APPLIANCE REPAIRER Plan of Treatment Upcoming Encounters Date Type Department Care Team (Late st Contact Info) Description 08/23/2024 9:45 AM CDT Office Visit [facility] - Endocrinology - [place] [address] [place] [phone] Naomi Sanches MD [address] [phone] Health Maintenance Due Date Last Done Comments Diabetes: Eye Exam 1996 Hepatitis C Virus (HCV) Screening 1996 Pneumococcal Immunization Combined (1 of 2 - PCV) 2015 Pap Smear 2017 Diabetes: Nephropathy Screening 07/21/2018 07/21/2017, 02/03/2017, 01/03/2017 Influenza Immunization (#1) 01/02/202405/04, 01/01/2017, 01/01/2017, Additional history exists SARS-COV-2 Immunization ( - season) 2024 05/11/2021 Diabetes: Hemoglobin A1c [...] POCT GLYCOSYLATED HEMOGLOBIN Routine 05/25/2024 9:15 AM ELECTRICAL APPLIANCE REPAIRER Type 1 diabetes mellitus without complication (HCC) CMP (COMPREHENSIVE METABOLIC PANEL) STAT 07/21/2017 9:00 PM CDT from Last 3 Months or Most Recently Relevant to Health Maintenance Results * POCT GLYCOSYLATED HEMOGLOBIN (05/25/2024 9:15 AM ELECTRICAL APPLIANCE REPAIRER) HGB-A1C 5.4 4 - 6 % Blood 05/25/2024 9:15 AM ELECTRICAL APPLIANCE REPAIRER us Wonil Tae MD POINT OF CARE TESTING (MANUAL) F inal Result * (ABNORMAL) CMP (Comprehensive Metabolic Panel) (07/21/2017 9:00 PM CDT) SODIUM 139 131 - 143 mmol/L 07/21/2017 10:05 PM CDT [facility] POTASSIUM 4.7 3.5 - 5.1 mmol/L 07/21/2017 10:05 PM CDT [facility] CHLORIDE 94(L) 100 - 110 mmol/L 07/21/2017 10:05 PM T [facility] CO2, VENOUS 21(L) 22 - 32 mmol/L 07/21/2017 10:05 PM T [facility] ANION GAP 28.7(H) 8.0 - 20.0 mmol/L 07/21/2017 10:05 PM T [facility] GLUCOSE 310(H) 70 - 105 mg/dL 07/21/2017 10:05 PM T [facility] BUN 19 10 - 31 mg/dL 07/21/2017 10:05 PM T [facility] CREATININE, BLOOD 0.46(L) 0.60 - 1.30 mg/dL 07/21/2017 10:[address] [facility] BUN/CREATININE RATIO 41(H) 12 - 20 ratio 07/21/2017 10:[address] [facility] TOTAL PROTEIN 8.1 6.0 - 8.3 g/dL 07/21/2017 10:05 PM T [facility] ALBUMIN 4.9 3.5 - 5.2 g/dL 07/21/2017 10:[address] [facility] A/G RATIO 1.5 1.0 - 2.0 07/21/2017 10:[address] [facility] CALCIUM 10.2 8.9 - 10.3 mg/dL 07/21/2017 10:05 PM T [facility] T BILI 0.4 0.3 - 1.2 mg/dL 07/21/2017 10:05 PM CDT [facility] SGOT (AST) 12 1 - 32 U/L 07/21/2017 10:05 PM CDT [facility] SGPT (ALT) 9 1 - 33 U/L 07/21/2017 10:05 PM CDT [facility] ALKALINE PHOSPHATASE 116(H) 35 - 105 U/L 07/21/2017 10:05 PM CDT [facility] GFR, EST. NONAFRICAN >60 >=60 07/21/2017 10:05 PM CDT [facility] GFR, EST. >60 >=60 07/21/2017 10:05 PM CDT [facility] Comment: Creatinine Clearance is the preferred criteria for selecting drug dose adjustments in renally impaired patients. The GFR is provided as additional pertinent clinical information. GFR is reported in mL/min/1.73 sq m. Blood specimen (specimen) Venous Catheter (IV) / Unknown 07/21/2017 9:00 PM CDT 07/21/2017 9:42 PM CDT us Renzo Nuñez MD CHEMISTRY ORDERABLES Chanell betancourt Result [facility] [address] [place] [address] from Last 3 Months or Most Recently Relevant to Health Maintenance Insurance MEDICAID [employer] Advance Directives * Full Code (Latest Code [...] measures to stabilize the patient. Care Teams Supervisor Cell Maintenance Relationship Specialty Start Date End Date Genie Reid MD [address] [place] [address] PCP - General Obstetrics & Gynecology 07/14/24 Naomi Sanches MD [address] [phone] Consulting Physician Endocrinology 05/21/20
--- OUTSIDE RECORDS SUMMARY | 2024-07-18 12:48 | XMS_ITS | Encounter Summary ---
Author Organization [facility] Address [address] [place] [address] Care Team Providers Care Automated Cutting Machine Operator Name Role Phone Jolanta Freeman MD Primary Care Provider [phone] Reason for Visit * Reason Onset Date Comments MEDICATION REFILL 03/18/2018 Encounter Details Date Type Department Care Team (Late st Contact Info) Description 03/18/2018 Refill [facility]ocr[facility], Diabetes [facility] Met[facility] [address] [place] [address] Pawan Ram MD [address] [place] [address] MEDICATION REFILL Social History Tobacco Use Types [...] on filedocumented in this encounter Care Teams Automated Cutting Machine Operator Relationship Specialty Start Date End Date Jolanta Freeman MD PCP - General Pediatrics 05/24/13 documented as of this encounter
--- OUTSIDE RECORDS SUMMARY | 2024-07-18 12:48 | XMS_ITS | Data Portability ---
Author Organization [facility] for [facility]'s [facility], [id number] Address [address] [place] [address] Assessment No assessment recorded. Plan of Treatment Reminders Order Date Submit Date Provider Last Modified By Organization Details Last Modified Time Details Appointments ANNUAL- EST 15 2024 10:15A M ROGELIO LEMUS WHNP Not available Not available Not available Lab None recorded. Referral gastroent erologist referral 2024 025 ATHENAFAX [facility], [address] [facility], [place] [address], [place], [address], 07/14/2024 13:20:59 Procedures None recorded. Surgeries None recorded. Imaging None recorded. Medication Orders None recorded. Patient TargetsNo targets recorded. 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 [email or web address] Not available 06/22/2024 12:52:32 Reason for Referral Saas Architect Referral for Type 1 diabetes mellitus Referring Physician: Genie Pittman, HAND BRUSH FILLER, Encounter Date: 06/22/2024 Problems Name Problem SNOMED Code Status Onset Date Resolution Date Notes Provider Name and Address Organization Details Recorded Time Type 1 diabetes mellitus [id number] [place]; [facility] GENIE PITTMAN MD [address], [place], [address] [place] [address] for Women's [facility] 5 16:22:10 Nausea and vomiting 48506142 Active 025 GENIE PITTMAN MD [address], [place], [address], [facility] for Womens [facility] 5 12:44:42 Diarrhea 75927366 Active 025 [place] [address] [place] [address] [address], [place], [address], [facility] for [facility] 5 12:44:46 Problem Notes None recorded. Procedures Surgical History Date Name Laterality Status Provider Name and Address Organization Details Recorded Time 05/10/19 25 Dilation and curettage [place] [address] [place] [address] [address], [place], [address], [facility] for [facility] 06/21/2024 16:20:37 10/26/19 24 Date of Last Pap Smear completed [place] [address] [place] [address] [address], [place], [address], [facility] for [facility] 06/21/2024 16:19:47 delivery completed GENIE [place] [address] [place] [address] [address], [place], [address], [facility] for [facility] 06/21/2024 16:20:10 tonsillectomy [place] [address] [place] [address] [address], [place], [address], [facility] for [facility] 06/21/2024 16:22:45 Tonsillectomy completed Rad[facility] for [facility] 06/22/2024 12:33:26 Dilation and Curettage completed Radha Hudson [facility] for [facility] 06/22/2024 12:33:26 Caesarean Section completed Radha [facility] for [facility] 06/22/2024 12:33:26 Imaging Results None recorded. Procedure Notes None recorded. Medical Equipment None Reported. Allergies No known drug allergies Medications Name Sig Start Date Stop Date Status Note LastModified by Organization Details LastModified Time promethazin e 12.5 mg tablet TAKE 1 TABLET BY MOUTH THREE TIMES DAILY NEEDED FOR FOR NAUSEA AND VOMITING 06/22 completed Not Available Not Available Not Available Lantus U-100 Insulin 100 unit/mL subcutaneou s solution ADMINISTE R 16 UNITS UNDER THE SKIN EVERY MORNING 06/22 completed Not Available Not Available Not Available metronidazo le 500 mg tablet TAKE 1 TABLET BY MOUTH TWICE DAILY FOR 3 DAYS 06/22 completed Not Available Not Available Not Available insulin lispro (U-100) 100 unit/mL subcutaneou s solution ADMINISTE R UP TO 60 UNITS UNDER THE SKIN DAILY. INSULIN PUMP SETTINGS active Not Available Not Available No t Available scopolamine 1 mg over 3 days transdermal patch APPLY 1 PATCH TO THE SKIN DIRECTED EVERY 72 HOURS 06/22 completed Not Available Not Available Not Available ondansetron 4 mg disintegrat ing tablet DISSOLVE 1 TABLET ON THE TONGUE EVERY 8 HOURS NEEDED FOR NAUSEA OR VOMITING active Not Available Not Available No t Available Junel FE 1.5 (28) 1.5 mg-30 mcg (21)/75 mg (7) tablet TAKE 1 TABLET BY MOUTH DAILY active Not Available Not Available No t Available Loestrin Fe 1.5 (28-Day) active Not Available Not Available Not Available Classic 28 mg iron-800 mcg tablet TAKE 1 TABLET BY MOUTH DAILY 06/22 completed Not Available Not Available Not Available Humalog Hakeem KwikPen (U-100) 100 unit/mL subcutaneou s half-unit pen Inject by subcutane ous route. active Not Available Not Available No t Available Dexcom G7 Hazard Waste Handler USE TO MONITOR BLOOD GLUCOSE CONTINUOU SLY active Not Available Not Available No t Available Dexcom G7 Sensor device USE EVERY 10 DAYS active Not Available Not Available No t Available Vitals Date Recorded Body height Body mass index (BMI) Body weight Systolic blood pressure Diastolic blood pressure Provider Name and Address Organization Details Last Updated DateTime 06/22/2024 154.94 cm 33.5 kg/m2 90493.57 g 114 mm[Hg] 74 mm[Hg] Radha [facility] 12:33:09 Social History Question Answer Notes LastModified by Organizat ion Details LastModified Time Tobacco Smoking Status Never Smoker Radha [facility] 06/21/2024 16:50:24 Do You Have An Advance Directive? No [email or web address] Information not available 06/22/2024 What Is Your Level Of Alcohol Consumption? Occasional Information not available 06/21/2024 If You Are , What Was Your Level Of Alcohol Consumption Prior To ? Occasional [email or web address] Information not available 06/22/2024 How Many Years Have You Consumed Alcohol? 7 [email or web address] Information not available 06/22/2024 What Is Your Level Of Caffeine Consumption? Occasional [email or web address] Information not available 06/22/2024 Are You Currently Employed? No [email or web address] Information not available 06/21/2024 What Type Of Diet Are You Following? DIABETIC [email or web address] Information not available 06/22/2024 What Is Your Relationship Status? Single [email or web address] Information not available 06/21/2024 Do You Use Any Illicit Or Recreational Drugs? No [email or web address] Information not available 06/21/2024 Sex: Unknown Functional Status None recorded. Mental Status None recorded. Family History Relationship Description Onset Age of this Age Resolved Age Notes LastModified by Organization Details LastModified Time Maternal Grandmother Hypertensive disorder [email or web address] Not available 06/21 16:47:56 Medical History Condition Response Endocrinology- Diabetes Y Gynecological History Statement/Question Response 11 History of PCOS N Flow Moderate History of Fibroids N Date of LMP 06/07/2024 History of Infertility N History of Cervical Dysplasia N History of Vulvar Dysplasia N Duration of Flow (days) 5 History of Recurrent Ovarian Cysts N HPV Vaccine Completed History of Endometriosis N Sexually Active? Y History of Dysmenorrhea N Menses Monthly Y Date of Last Pap Smear 10/26/2023 Sexual Problems? N History of Sexually Transmitted Infectio n N Obstetrics History GPAL:G 6 P 1 1 4 2 Type Value Full Term 1 Spontaneous 4 Premature 1 Living 2 Total 6 Past Encounters Encounter ID Performer Location Encounter Start Date Encounter Closed Date Diagnosis/Indication Diagnosis SNOMED-CT Code Diagnosis ICD10 Code Diagnosis Note [id number] GENIE PITTMAN MD [id number] [facility] [address] [facility] [facility] [address] [place] [address] 06/22/2024 12:22:45 06/22/2024 12:53:35 Type 1 diabetes mellitus 75978473 E10.9 R19.7 R11.2 Nausea and vomiting 1693 1999 R11.2 Diarrhea 80277158 R19.7 Health Concerns Section Related Observation LastModified by Organization Detai ls LastModified Time None Recorded Concern Status LastModified by Organization Details LastModified Time None Recorded Advance Directives Directive N: Payers Encounter Date Sequence Insurance Name Policy Number Policy Garcia Covered Member ID Garcia Member ID Guarantor Name 06/22/2024 1 [facility] (MEDICAID REPLACEMENT - HMO) Karina Jef [id number] Karina Fuchs Notes Date Note Type Note Provider Name and Address Organization Details Recorded Time 06/22/2024 text/html Patient states s he is a type one diabetic, a few days before she starts her periods every month she gets vomiting, diarrhea and nausea and it will last from 4-5 days. 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 5yr ago saw a resolution manager for similar symptoms, was told all ok. at that time, symptoms were not as frequent. for past year, happens every period. has a CGM, bg's around 100-150 most of the time. her insulin pump is regular insulin, gets an hourly basal and boluses for meals, follows diabetic diet, and only drinks water. is frustrated and wonders if we can help her. just prior to the symptoms, has abdominal pain upper and lower, resolves once vomit/diarrhea, and then all resolves into period. -bg GENIE PITTMAN MD [address], [place], [address], [place] [facility] 06/22/2024 12:52:53 OBGyn Episode No OBEpisode recorded.
--- OUTSIDE RECORDS SUMMARY | 2024-07-18 12:49 | XMS_ITS | Clinical Summary ---
Author Organization [facility] Address [address] [place] [address] Care Team Providers Care Basket Machine Operator Name Role Phone Warren Phillips MD Unavailable [phone] Miscellaneous, Not In File Unavailable Unava ilable Nicole Garcia DO Unavailable [phone] Naomi Sanches MD Unavailable Teresita Marquez MD [...] 04/29/2021 Assessment & Plan (04/29/2021 8:51 AM SALES TEAM MEMBER): This may be reactive, no source of infection. -pending urine cultures, pending blood culture -sterile pyuria on urinalysis Altered mental status 03/04/2021 Diabetic ketoacidosis with c jorge associated with type 1 diabetes mellitus 11/16/2020 Marijuana abuse 11/16/2020 Intractable vomiting 03/13/2020 [...] with HROB and Endocrinology. Pt to call C++ Professor and see if they are comfortable treating [...] [] A1c likely to be rechecked via renal dialysis technician but if not, will check qtrimester Noncompliance with medication regimen 04/26/2019 Tachycardia 03/24/2019 Diabetic gastroparesis ([facility]/HCC) 02/14/2019 Depression 02/11/2019 Hypokalemia 11/08/2018 [...] Uncontrolled type 1 diabetes mellitus with hyperglycemia ([facility]) 01/02/2018 Assessment & Plan (11/27/2019 5:40 [...] coma associated with type 1 diabetes mellitus ([facility]) 03/24/2019 11/20/2021 Assessment & Plan (04/29/2021 8:50 AM SALES TEAM MEMBER): Patient with multiple admissions for DKA. Patient states that she has been compliant with her insulin and has not missed any doses. Unclear trigger: Viral panel negative On admission patient's glucose was 259, anion gap of 23. Lactate normal. Urinalysis with 4+ ketones, 2+ leukocyte esterase pending the urine culture -beta hydroxybutyrate 1.5 -clinical nurse educator -consulted Endocrine appreciate assistance possibly needing [...] (02/13/2019): Added automatically from request for surgery [id number] Assessment & Plan (11/27/2019 5:37 AM CDT): [...] IV Reglan Sepsis due to gram-negative UTI 05/27/2018 03/06/2020 Metabolic alkalosis 01/02/2018 03/06/20 20 [...] coma associated with type 1 diabetes mellitus 03/06/2020 Increased lactic acid level 03/06/2020 Immunizations Immunization Administration Dates Next Due DTP / HiB [...] History Date Comments Depression Miscarriage Diabetes mellitus (HCC) T1DM Diabetic ketoacidosis (HCC) Cannabinoid hyperemesis syndrome Dehydration 01/02/2018 Uncontrolled type 1 diabetes mellitus with hyperglycemia (CMS/HCC) (HCC) 01/02/2018 Family History Medical History Relation Name [...] often do you attend chur ch or christian services? Never 01/20/2022 Do you belong to any clubs o r organizations such as pentecostalism groups, unions, fraternal or athletic groups, or [...] on file Legal Sex Female 3:13 AM SALES TEAM MEMBER Gender Identity Not on file Sexual Orientation [...] 113 07/17/2022 6:46 PM CDT Temperature 36.7 C (98.1 F) 07/17/2022 1:09 PM CDT Respiratory Rate 18 07/17/2022 6:46 PM CDT [...] Foot Exam 1996 Hepatitis C Screening 1996 Dilated Eye Exam 2006 Varicella Vaccines (2 of 2 - 13+ 2-dose series) 08/11/2010 07/14/2010 Pneumococcal vaccine <65 (1 of 2 - PCV) 2015 Lipid Panel 02/08/2018 02/08/2017, 07/01, 07/01/2012 Hemoglobin A1C 07/29/2022 01/29/2022, 10/02, 04/28/2021, Additional history exists TSH Level 01/29/2023 01/29/2022, 11/0 06/2020, 03/21/2020, Additional history exists Regular Well Visit/Exam 18-64 02/02/2023 02/02/2022 Depression Screening 07/16/2023 07/15/2022, 02/02/2022, 03/12/2020, Additional history exists eGFR 07/18/2023 07/17/2022, 10/2021, 01/29/2022, Additional history exists Covid-19 Vaccine ( season) 2024 05/11/2021 Influenza Vaccine (#1) 2024 9, 01/01/2017, 05/13/2016 DTaP/Tdap/Td Vaccine (6 - Td or Tdap) 09/09/2026 09/09/2016, 12/11/2009, 10/31/2001, Additional history exists Hepatitis B Screening Completed 1996, 997 HPV Vaccines Aged Out No longer eligi [...] ([facility]) Comment: Interpretive Data Reference Interval Normal >/= 90 mL/min/1.73m2 Mildly decreased* 60 - 89 mL/min/1.73m2 Mildly to moderately decreased 45 - 59 mL/min/1.73m2 Moderately to severely decreased 30 - 44 mL/min/1.73m2 Severely decreased 15 - 29 mL/min/1.73m2 Kidney Failure < 15 mL/min/1.73m2 *Relative to young adult level Estimated glomerular [...] ORDERABLES Final Res ult Performing Organization Address City/[facility]/ZIP Co de Phone Number [facility] [address] [place] [address] [place] [address] * TSH reflex to free T4 (01/29/2022 10:34 PM CDT) TSH 1.69 0.30 - 4.20 mcIUnit/mL [facility] Blood 01/29/2022 10:3 4 PM CDT 01/29/2022 10:41 PM CDT Gio Sewell MD LAB BLOOD ORDERABLES Final Re sult Performing Organization Address [facility] Co de Phone Number [facility] [address] [place] [address] [place] [address] * (ABNORMAL) Hemoglobin A1c (01/29/2022 10:34 PM CDT) Hgb A1C 6.6(H) 4.0 - 5.6 % [facility] Estimated Average Glucose 143 mg/dL [facility] Comment: The ADA recommends reporting an estimated Average Glucose (eAG) with all Hemoglobin A1c results using the equation derived from a study of 507 normal and diabetic adults. Minority populations were underrepresented and children were not included. (Diabetes Care 31:1008-1464, 2008). The eAG is not equivalent to a fasting glucose. Blood 01/29/2022 10:3 4 PM CDT 01/29/2022 10:41 PM CDT us Gio Sewell MD LAB BLOOD ORDERABLES Final Re sult [facility]OMY [facility] 1 [facility] Department [place] [address] * Lipid panel (02/08/2017 8:46 PM CDT) Cholesterol 160 30 - 200 mg/dL [facility] Comment: Interpretive Data Desirable: <200 mg/dL Borderline high: 200-239 mg/dL High: > or = 240 mg/dL Literature Reference: National Cholesterol Education Program (NCEP) Expert Panel on Detection, Evaluation, and Treatment of High Blood Cholesterol in Adults (Adult Treatment Panel III). Circulation 2004; 110:227. Current interpretive data was last revised on 2015. Triglycerides 66 0 - 150 mg/dL TOMY [facility] Comment: Interpretive Data Desirable: < 150 mg/dL Borderline High: 150 - 199 mg/dL High: 200 - 499 mg/dL Very High: > or = 499 mg/dL Literature Reference: See Cholesterol Current interpretive data was last revised on 2015. HDL 57 >=40 mg/dL [facility] Comment: Interpretive Data Less than 40 mg/dL - low; A major risk factor for heart disease. Greater than or equal to 60 mg/dL - High; considered protective of heart disease. Literature Reference: See Cholesterol Current interpretive data was last revised on 2015. LDL, calculated 90 10 - 129 mg/dL [facility] Comment: Interpretive Data Optimal: < 100 mg/dL Near Optimal: 100 - 129 mg/dL Borderline High: 130 - 159 mg/dL High: 160 - 189 mg/dL Very high: > or = 190 mg/dL Literature Reference: See Cholesterol Current interpretive data was last revised on 2015. Non-HDL Cholesterol 103 mg/dL [facility] Comment: Interpretive Data When triglycerides are >200 mg/dL, non-HDL C is a secondary target of therapy, with a goal 30 mg/dL higher than the identified LDL-C goal. Reference: See Cholesterol Reference. Current interpretive data was last revised 2015. Blood specimen (specimen) 02/08/2017 8:46 PM CDT 02/08/2017 9:09 PM CDT us Tessacamille Pinto LAB BLOOD ORDERABLES Final Resul t [facility]OM[facility] Department [place] [address] from Last 3 Months or Most Recently Relevant to Health Maintenance Insurance [place] [address] [facility] IDPA Advance Directives For more information, please contact: [phone] * Full Code (Latest Code Status on [...] First Alternate Health Care Agent Care Teams Basket Machine Operator Relationship Specialty Start Date End Date Teresita Marquez MD [address] [address] [address] [place] [address] PCP - General Family Medicine 02/02/22 Warren Phillips MD Consulting Physician Gastroenterology 02/16/19 Miscellaneous, Not In File 07/23/21 Nicole Garcia DO [address] [facility] [address] [place] [address] Resident Family Medicine 11/22/21 Naomi Sanches MD [address] [facility] [address] [place] [address] Referring Physician General Surgery 11/22/21
--- OUTSIDE RECORDS SUMMARY | 2024-07-18 12:49 | XMS_ITS | Clinical Summary ---
Author Organization [facility] Address [address] [place] [address] Phone Care Team Providers Care Trimmer Machine Operator Name Role Phone Unavailable Primary Care Provider Unavailabl e Allergies No known active allergies Medications vit,calc76/iron/f olic (PNV 29-1 ORAL) Take by mouth. Activ e metoclopramide HCl (REGLAN) 5 mg tabletIndications :Supervision of high risk in first trimester,Gastrop aresis due to DM ([facility]) Take 1 Tablet (5 mg) [...] second trimester,Type 1 diabetes mellitus without complication ([facility]) Use as directed. Notify MD [...] with HROB and Endocrinology. Pt to call [employer] Executive Director and see if they are comfortable treating [...] [] A1c likely to be rechecked via sheet metal installer but if not, will check qtrimester Diabetic [...] Encounters Date Type Department Care Team Description 06/20/2024 External Device Data [facility] Provider, Abstract 05/24/2024 External Device Data [facility] Provider, Abstract 05/24/2024 External Device Data [facility] Provider, Abstract 05/09/2024 External Device Data [facility] Provider, Abstract 05/05/2024 Telephone [facility] Maternal and Medicine [facility] [address] [place] [address] Kathryn Coppola Appointment Notification 05/04/2024 Telephone [facility] Maternal and Medicine [facility] [address] [place] [address] Juhi Mathews MD Appointment Notification from Last 3 Months Immunizations Immunization Administration [...] 65 02/18/2023 11:16 AM CDT Temperature 36.6 C (97.8 F) 02/13/2023 6:41 AM CDT Respiratory Rate 16 02/13/2023 6:41 AM CDT [...] CHOLESTEROL ANNUAL 2014 CERVICAL CANCER SCREENING 2017 Preventative Visit-Managed Medicaid 02/03/2023 02/02/2022 DIABETES HBA1C Q 6 MONTHS 07/31/20232022, 05/22/2022, [...] 5.7(H) <5.7 % 01/30/2023 8:43 AM CDT [facility] EST. AVG GLUCOSE, A1C 117 mg/dL 01/30/2023 8:43 AM CDT [facility] Blood Venipuncture / Unknown 01/30/2023 3:57 AM CDT 01/30/2023 4:01 AM CDT Narrative [facility] - 01/30/2023 8:43 AM CDT HGB A1C INTERPRETATION NORMAL: <5.7% PRE-DIABETES: 5.7 - 6.4% DIABETES: 6.5% OR GREATER Manuel Goldstein MD CHEMISTRY ORDERABLES Final Resul t [facility] CLIA# [id number] [address] [place] [place] [id number] from Last 3 Months or Most Recently Relevant to Health Maintenance Insurance [facility] [place] RX [employer] Commercial RX [employer] (INTERNAL) [facility] [employer] RX [employer] Commercial RX [employer] Commercial [[id number] Advance Directives For more information, please contact: [phone] * Full Code (Latest Code Status on File) Date Activated Date Inactivated Comments 02/07/2023 8:45 AM 02/13/2023 3:42 PM * Full Code Date Activated Date Inactivated Comments 02/07/2023 8:43 AM 02/07/2023 8:45 AM * Full Code Date Activated Date Inactivated Comments 01/29/2023 4:27 PM 02/07/2023 8:43 AM
--- OUTSIDE RECORDS SUMMARY | 2024-07-18 12:49 | XMS_ITS | Clinical Summary ---
Author Organization [facility] [employer] Address [address] [place] [address] Care Team Providers Care Mexican Food Machine Tender Name Role Phone Jolanta Freeman MD Primary Care Provider + [phone] Source Comments [facility] [employer],non-owned Affiliates and Associated Physician Practices is amultiple site organization consisting of ambulatory clinics and hospital sitesin [place], [place], [place] and [place]. This disclosure is being madepursuant to the Care Everywhere program and may not contain all information available regarding this patient. Last updated 18.[facility] [employer] Allergies No known active allergies Medications * [...] AM CDT back to bed Temperature 36.9 C (98.4 F) 10/09/2018 7:30 AM CDT Respiratory Rate 18 10/09/2018 11:5 3 AM [...] complete this topic MENINGOCOCCAL (Group B) VACCINE SHARED DECISION-MAKING Aged Out No longer eligible based on patient's age to complete this topic MENINGOCOCCAL GROUPS A/C/Y/W VACCINE Aged Out No longer eligible based on patient's age to complete this topic PNEUMOCOCCAL VACCINE Aged Out No long er eligible based on patient's age to complete [...] - 106 mg/dL 10/09/2018 6:05 AM CDT [facility] Sodium 134(L) 136 - 145 mmol/L 10/09/2018 6:05 AM CDT [facility] Potassium 4.1 3.5 - 5.1 mmol/L 10/09/2018 6:05 AM T [facility] Chloride 99 98 - 107 mmol/L 10/09/2018 6:05 AM T [facility] CO2 26 23 - 31 mmol/L 10/09/2018 6:05 AM T [facility] Calcium 8.9 8.4 - 10.2 mg/dL 10/09/2018 6:05 AM CDT [facility] Anion Gap 9 8 - 16 mmol/L 10/09/2018 6:05 AM T [facility] BUN 2(L) 7 - 18.7 mg/dL 10/09/2018 6:05 AM T [facility] Creatinine 0.44(L) 0.55 - 1.02 mg/dL 10/09/2018 6:05 AM T [facility] Alkaline Phosphatase 69 40 - 150 U/L 10/09/2018 6:05 AM T [facility] ALT 9(L) 13 - 61 U/L 10/09/2018 6:05 AM CDT [facility] AST 12 5 - 34 U/L 10/09/2018 6:05 AM T [facility] Protein Total 6.1(L) 6.4 - 8.3 gm/dL 10/09/2018 6:05 AM T [facility] Albumin 3.6 3.5 - 5.2 gm/dL 10/09/2018 6:05 AM CDT [facility] Bilirubin Total 0.7 0.2 - 1.0 mg/dL 10/09/2018 6:05 AM T [facility] eGFR by MDRD >60 >60 mL/min/1.7 3m2 10/09/2018 6:05 AM CDT [facility] eGFR by MDRD >60 >60 mL/min/1.7 3m2 10/09/2018 6:05 AM CDT [facility] Blood BLOOD SPECIMEN / Unknown Lab Venipuncture / Unknown 10/09/2018 5:22 AM CDT 10/09/2018 5:28 AM CDT Narrative [facility] - 10/09/2018 6:05 AM CDT Attention clinician: BUN Reference Range has changed. Suni Barrera MD LAB - CHEMISTRY O RDERAETTA Performing Organization Address [facility] Co de Phone Number [facility] [address] [place] [address] [phone] * (ABNORMAL) HEMOGLOBIN A1C (10/08/2018 12:52 AM CDT) Pathologist [facility] Hemoglobin A1c 10.3(H) 4.0 - 6.1 % 10/08/2018 1:18 AM CDT [facility] Estimated Average Glucose 249 mg/dL 10/08/2018 1:18 AM CDT [facility] Blood BLOOD SPECIMEN / Unknown Lab Venipuncture / Unknown 10/08/2018 12:52 AM CDT 10/08/2018 12:57 AM CDT Narrative [facility] - 10/08/2018 1:18 AM CDT Attention clinician: Reference Range has changed. Cody Palmer MD LAB - CHEMISTRY HANDY KONG Performing Organization Address City/[facility] Co de Phone Number [facility] [address] [place] [phone] * HIV-1 HIV-2 ANTIBODY + HIV P24 AG PANEL (10/07/2018 8:53 PM CDT) Pathologist [facility] HIV1/2 Ab + P24 Ag Non Reactive Non Reactive 10/07/2018 9:41 PM CDT [facility] Blood BLOOD SPECIMEN / Unknown Lab Venipuncture / Unknown 10/07/2018 8:53 PM CDT 10/07/2018 8:59 PM CDT Narrative [facility] - 10/07/2018 9:41 PM CDT No Laboratory evidence of HIV infection. Franchesca Orellana MD LAB - CHEMISTR Y ORDERABLES [facility] [address] [place] [address] from Last 3 Months or Most Recently [...] 9:40 PM 11/30/2017 4:07 PM Care Teams Mexican Food Machine Tender Relationship Specialty Start Date End Date Jolanta Freeman MD PCP - General Pediatrics 05/24/13
--- OUTSIDE RECORDS SUMMARY | 2024-07-18 12:49 | XMS_ITS | Clinical Summary ---
Author Organization [facility] Address [facility] [place] [address] Care Team Providers Care Ct Technician Name Role Phone EmeraldCarrie moreland Josette BETTS Primary Care Provider Allergies No known active allergies Medications insulin lispro (HUMALOG) 100 UNIT/ML patient supplied PUMP Inject into the skin continuous. Active Active Problems No known active problems Resolved Problems Problem Noted Date Diagnosed Date Resolved Date Vomiting 06/25/2019 06/25/2019 Encounters Date Type Department Care Team Description 05/10/2024 7:35 AM [facility] Anesthesia Event [facility] [address] [place] [id number] Lex Perea, Alma Zaman MD 05/10/2024 7:30 AM ORDER ENTRY SPECIALIST - 05/10/2024 8:19 AM [facility] [address] [place] [address] Genie Pittman MD DILATATION & CURETTAGE SUCTION WITH 12 CURVED VACUUM CURETTE, TRANSVAGINAL ULTRASOUND 05/10/2024 6:42 AM ORDER ENTRY SPECIALIST - 05/10/2024 10:30 AM [facility] Hospital Encounter [facility] [address] [place] [address] Genie Pittman MD Discharge Disposition: Home or Self Care (Routine Discharge) 05/10/2024 Travel 05/05/2024 Travel 05/04/2024 12:03 PM ORDER ENTRY SPECIALIST - 05/04/2024 11:59 PM ORDER ENTRY SPECIALIST Hospital Encounter [facility] [address] [place] [address] Genie Pittman MD Discharge Disposition: Home or Self Care (Routine Discharge) 05/04/2024 Orders Only [facility] [address] [place] [address] Genie Pittman MD 05/04/2024 Travel from Last [...] Comments Blood Pressure 98/45 05/10/2024 9:45 AM ORDER ENTRY SPECIALIST Pulse 105 05/10/2024 8:22 AM ORDER ENTRY SPECIALIST Temperature 36.7 C (98 F) 05/10/2024 9:15 AM ORDER ENTRY SPECIALIST Respiratory Rate 18 05/10/2024 8:22 AM ORDER ENTRY SPECIALIST Oxygen Saturation 99% 05/10/2024 9:45 AM ORDER ENTRY SPECIALIST Inhaled Oxygen Concentration - - Weight 77.1 kg (170 lb) 05/10/2024 6:54 AM ORDER ENTRY SPECIALIST Height 154.9 cm (5' 1 ) 05/10/2024 6:54 AM ORDER ENTRY SPECIALIST Body Mass Index 32.12 05/10/2024 6:54 AM ORDER ENTRY SPECIALIST Plan of Treatment Health Maintenance Due Date [...] DILATATION & CURETTAGE SUCTION 05/10/2024 7:35 AM ORDER ENTRY SPECIALIST MISSED Case Notes IDDM-has insulin pump PATHOLOGY Routine 05/10/2024 12:00 AM ORDER ENTRY SPECIALIST URINE BACTERIA CULTURE Routine 05/04/2024 12:17 PM ORDER ENTRY SPECIALIST Pre-operative laboratory examination TYPE & SCREEN Routine 05/04/2024 12:17 PM ORDER ENTRY SPECIALIST Pre-operative laboratory examination HC URINALYSIS AUTO W/O MICRO Routine 05/04/2024 12:17 PM ORDER ENTRY SPECIALIST Pre-operative laboratory examination CBC W/DIFF AUTOMATED Routine 05/04/2024 12:17 PM ORDER ENTRY SPECIALIST Pre-operative laboratory examination from Last 3 Months Results * Pathology (05/10/2024 12:00 AM ORDER ENTRY SPECIALIST) PATHOLOGY [facility] Department of Laboratory Medicine [address] [place] [phone] , extension [phone] Pathology Report Surgical Pathology Report Name: KARINA FUCHS Specimen #: [id number] Age: 2 1995 (Age: 28) Location: [facility] Sex: F Procedure Date: 05/10/2024 Hospital #: [id number] Date Received: 05/11/2024 Date Reported: 05/12/2024 Provider: GENIE PITTMAN MD Source: Products of conception Clinical History: Missed . FINAL DIAGNOSIS: Uterine contents, dilation and suction curettage: -Immature chorionic villi with patchy edema and degenerative changes. -Chorionic plate and decidua with acute inflammation and degenerative changes. -Three-vessel umbilical cord with degenerative changes. -Gestational endometrium with acute and chronic inflammation. - parts present. Gross Description: Received in formalin, labeled with a patient label and as product of conception, is a 10.5 x 7.5 x 3.5 cm aggregate of pink castaneda tissue fragments intermixed with clotted blood. Macerated parts are grossly identified. The foot length measures 0.6 cm. A 6.9 cm umbilical cord is identified, attached to the fragmented torso, and ranges from 0.1-0.4 cm in diameter. The 0.1 cm umbilical cord diameter is identified extending from the torso and measures 1.2 cm in length. The largest umbilical cord diameter is just distal to the smallest umbilical cord diameter. Sectioning through the placental parenchyma reveals rare cystic foci that measure up to 0.6 cm. No further discrete parenchymal lesions are identified. Bulk Sugar Handler sections are submitted as follows: 1 union representative umbilical cord, including constrictive proximal focus 23 random sections. Please note: The specimen is returned to the collecting facility following microscopic examination. Gross examination (when applicable) was performed at [facility], [address] [place] [address]. This case was interpreted and signed out at [facility], [address] [place] [address]. Electronically Signed Out Gilmar Santana M.D. [facility] TISSUE PRODUCTS OF CONCEPTION TISSUE SPECIMEN / Unknown 05/10/2024 8:00 AM ORDER ENTRY SPECIALIST us Genie Pittman MD PATHOLOGY/CYTOLOGY ORDERABLES Final Result [facility] [address] [place] [address], [id number] * TYPE & SCREEN (05/04/2024 12:17 PM ORDER ENTRY SPECIALIST) ABO/RH O POSITIVE 05/04/2024 4:37 PM ORDER ENTRY SPECIALIST [facility] ANTIBODY SCREEN NEGATIVE 05/04/2024 4:37 PM [facility] SAMPLE EXPIRATION 05/18/2024,2 359 05/06/2024 7:40 AM ORDER ENTRY SPECIALIST [facility] 05/04/2024 12:1 7 PM ORDER ENTRY SPECIALIST us Genie Pittman MD BLOOD BANK TEST ORDERABLES Fin al Result [facility] [address] [place] [address], [place] [phone] * (ABNORMAL) URINALYSIS (05/04/2024 12:17 PM ORDER ENTRY SPECIALIST) COLOR (U) YELLOW 05/04/2024 1:48 PM [facility] TRANSPARENCY CLEAR 05/04/2024 1:48 PM ORDER ENTRY SPECIALIST [facility] SPECIFIC GRAVITY (U) 1.010 1.002 - 1.030 05/04/2024 1:48 PM [facility] U PH 7.0 4.5 - 8.0 05/04/2024 1:48 PM [facility] LEUKOCYTES (U) 1+(A) NEGATIVE 05/04/2024 1:48 PM [facility] NITRITES NEGATIVE NEGATIVE 05/04/2024 1:48 PM [facility] PROTEIN RANDOM (U) 1+(A) NEGATIVE 05/04/2024 1:48 PM [facility] GLUCOSE (U) 4+(A) NEGATIVE 05/04/2024 1:48 PM ORDER ENTRY SPECIALIST [facility] KETONES MG/DL (U) NEGATIVE NEGATIVE 05/04/2024 1:48 PM ORDER ENTRY SPECIALIST [facility] UROBILINOGEN NORMAL NORMAL EU/DL 05/04/2024 1:48 PM ORDER ENTRY SPECIALIST [facility] BILIRUBIN (U) NEGATIVE NEGATIVE 05/04/2024 1:48 PM ORDER ENTRY SPECIALIST [facility] BLOOD (U) 3+(A) NEGATIVE 05/04/2024 1:48 PM ORDER ENTRY SPECIALIST [facility] WBC/HPF 0-5 /HPF 05/04/2024 1:48 PM ORDER ENTRY SPECIALIST [facility] RBC/HPF 5-10 /HPF 05/04/2024 1:48 PM ORDER ENTRY SPECIALIST [facility] EPI/HPF 5-10 /HPF 05/04/2024 1:48 PM ORDER ENTRY SPECIALIST [facility] BACTERIA (U) 1+ /HPF 05/04/2024 1:48 PM [facility] MUCUS 2+ 05/04/2024 1:48 PM [facility] URINE SPECIMEN OBTAINED BY CLEAN CATCH PROCEDURE / Unknown 05/04/2024 12:17 PM ORDER ENTRY SPECIALIST us Genie Pittman MD URINE ORDERABLES Final Result [facility] [address] [place] [address], [place] [phone] * (ABNORMAL) URINE BACTERIA CULTURE (05/04/2024 12:17 PM ORDER ENTRY SPECIALIST) SPEC DESCRIPTION URINE CLEAN CATCH 05/04/2024 12:28 PM ORDER ENTRY SPECIALIST [facility] SPECIAL REQUESTS NO SPECIAL REQUEST 05/04/2024 12:28 PM [facility] CULTURE RESULT 10,000-49,000 COL/ML STREPTOCOCCUS GROUP D-NOT ENTEROCOCCUS SUSCEPTIBILTY NOT ROUTINELY PERFORMED. SAVING ISOLATE FOR 5 DAYS. CONTACT MICROBIOLOGY DEPARTMENT IF FURTHER WORKUP IS INDICATED. (A) 05/07/2024 8:24 AM ORDER ENTRY SPECIALIST [facility] URINE SPECIMEN OBTAINED BY CLEAN CATCH PROCEDURE / Unknown 05/04/2024 12:17 PM ORDER ENTRY SPECIALIST 05/04/2024 12:28 PM ORDER ENTRY SPECIALIST Genie Pittman MD MICROBIOLOGY - GENERAL ORDERAB LES Final Result [facility] [address] [place] [address], [place] [phone] [facility] [address] [place] [address], [place] [phone] * (ABNORMAL) CBC W/DIFF AUTOMATED (05/04/2024 12:17 PM ORDER ENTRY SPECIALIST) WBC 10.70 4.50 - 11.00 x10'3/uL 05/04/2024 12:36 PM [facility] RBC 3.94(L) 4.20 - 5.40 x10'6/uL 05/04/2024 12:36 PM [facility] HGB 11.8(L) 12.0 - 16.0 G/DL 05/04/2024 12:36 PM [facility] HCT 35.2(L) 38.0 - 48.0 % 05/04/2024 12:36 PM [facility] MCV 89.3 81.0 - 99.0 FL 05/04/2024 12:36 PM [facility] MCH 29.9 27.0 - 31.0 PG 05/04/2024 12:36 PM [facility] MCHC 33.5 32.0 - 36.0 G/DL 05/04/2024 12:36 PM [facility] RDW 13.2 11.5 - 14.5 % 05/04/2024 12:36 PM [facility] PLT 378 130 - 400 x10'3/uL 05/04/2024 12:36 PM [facility] MPV 8.8(L) 9.3 - 12.2 FL 05/04/2024 12:36 PM [facility] CBC COMMENT AUTOMATED RBC MORPHOLOGY AND PLATELET EVALUATION NORMAL 05/04/2024 12:36 PM [facility] NEUTROPHILS % 77.5 % 05/04/2024 12:36 PM [facility] LYMPHOCYTES % 13.9 % 05/04/2024 12:36 PM [facility] MONOCYTES % 6.9 % 05/04/2024 12:36 PM [facility] EOSINOPHILS 0.4 % 05/04/2024 12:36 PM [facility] BASOPHILS 0.3 % 05/04/2024 12:36 PM [facility] IMMATURE GRANS % 1.0 % 05/04/19 25 12:36 PM [facility] NRBC % 0.0 % 05/04/2024 12:36 PM [facility] ABS. NEUTROPHILS TOTAL 8.29(H) 1.80 - 7.70 x10'3/uL 05/04/2024 12:36 PM [facility] ABS. LYMPHOCYTES 1.49 1.00 - 4.80 x10'3/uL 05/04/2024 12:36 PM [facility] ABS. MONOCYTES 0.74 0.24 - 0.86 x10'3/uL 05/04/2024 12:36 PM [facility] ABS. EOSINOPHILS 0.04 0.04 - 0.36 x10'3/uL 05/04/2024 12:36 PM ORDER ENTRY SPECIALIST [facility] ABS. BASOPHILS 0.03 0.01 - 0.08 x10'3/uL 05/04/2024 12:36 PM ORDER ENTRY SPECIALIST [facility] ABS. IMMATURE GRANULOCYTES 0.11 0.00 - 0.49 x10'3/uL 05/04/2024 12:36 PM ORDER ENTRY SPECIALIST [facility] ABS. NUCLEATED RBC'S 0.00 0.00 - 0.01 x10'3/uL 05/04/2024 12:36 PM ORDER ENTRY SPECIALIST [facility] 05/04/2024 12:1 7 PM ORDER ENTRY SPECIALIST us Genie Pittman MD LABORATORY Final Result [facility] [address] [place] [phone], from Last 3 Months Insurance C/O [employer] [id number] Advance Directives Documents on File Type Date Recorded Patient Bulk Sugar Handler Expl anation Advance Directives and Living Will 04/18/2020 9:10 AM 01/10/2007 [place]IVING [place] Advance Directives and Living Will 04/18/2020 9:09 AM 01/10/2007 HC POA Advance Directives and Living Will 01/07/2017 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 Advance Directives and Living Will 01/07/2017 LIVING WILL Advance Directives and Living Will 12/22/2016 LIVING WILL Advance Directives and Living Will 12/22/2016 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
--- OUTSIDE RECORDS SUMMARY | 2024-07-18 12:49 | XMS_ITS | Data Portability ---
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 Plan of Treatment Reminders Order Date Submit Date Provider Last Modified By Organization Details Last Modified Time Details Appointments None recorded. Lab prolactin , serum 2019 020 [facility], [address] [facility] [address], [place], [address], 0 09:38:48 lh + FSH, serum 2019 020 [facility], [address] [place] [address] 2, [place], [address], 0 09:38:47 TSH, ultra-sen sitive, serum 2019 020 [facility], [address] [place] [address] 2, [place], [address], 0 09:38:48 test, urine 2019 020 [email or web address] In-Office Order, Internal Use Only DO Not Attach Compendium DO Not Attach Compendium, Do Not Delete/merge, [id number] 0 12:37:00 test, urine 2019 020 [email or web address] In-Office Order, Internal Use Only DO Not Attach Compendium DO Not Attach Compendium, Do Not Delete/merge, [id number] 0 12:26:41 Referral None recorded. Procedures None recorded. Surgeries None recorded. Imaging None recorded. Medication Orders Provera 10 mg tablet 2019 020 [facility], [address] [facility] [facility], [place], [address], 0 12:37:09 Microgest in FE 05/22 (28) 1 mg-20 mcg (21)/75 mg (7) tablet 2018 019 [facility], [address] [place], [address], 0 11:59:36 Patient TargetsNo targets recorded. Patient Instructions Encounter Date Encounter Id Patient Instructions Last Modified By Organization Details Last Modified Time 11/16/2019 [id number] secondary amenorrhea: care instructions [email or web address] Not available 11/16/2019 12:37:00 Reason for Referral None Reported. Results Created Date Observation Date Name Description Value Unit Range Abnormal Flag Note LastModifiedBy Organization Detail LastModifiedTime 10/20/19 19 10/19/2018 pregn nahum test, urine HCG positi ve Not Available In-Office Order Internal Use Only DO Not Attach Compendium DO Not Attach Compendium, Do Not Delete/merge, [id number] 10/19/2018 10:21:23 10/27/19 19 10/28/2018 bacte rial vagin osis + vagin itis panel , vagin al atopobium vaginae Low - 0 score Not Available [facility] ([facility]) [address] [place], [address], 10/29/2018 16:35:29 10/27/19 19 10/28/2018 bacte rial vagin osis + vagin itis panel , vagin al bvab 2 Low - 0 score Not Available [facility] ([facility]) [address] [place], [address], 10/29/2018 16:35:29 10/27/19 19 10/28/2018 bacte rial [facility] [address] [place], [address], 10/29/2018 16:35:29 10/27/19 19 10/28/2018 bacte rial vagin osis + vagin itis panel , vagin al trich vag by HOMERO Negati ve negati ve Not Available [facility] ([facility]) [address] [place], [address], 10/29/2018 16:35:29 10/27/19 19 10/28/2018 bacte rial vagin osis + vagin itis panel , vagin al chlamydia trachomatis, HOMERO Negati ve negati ve Not Available [facility] ([facility]) [address] [place], [address], 10/29/2018 16:35:29 10/27/19 19 10/28/2018 bacte rial vagin osis + vagin itis panel , vagin al neisseria gonorrhoeae, HOMERO Negati ve negati ve Not Available [facility] ([facility]) [address] [place], [address], 10/29/2018 16:35:29 10/27/19 19 10/29/2018 bacte rial vagin osis + vagin itis panel , vagin al nidia albicans, HOMERO Positi ve negati ve abnormal Not Available [facility] ([facility]) [address] [facility], [place], [address], 10/29/2018 16:35:29 10/27/19 19 10/29/2018 bacte rial [...] [facility] [address] [facility], [place], [address], 10/29/2018 16:35:29 10/27/19 19 10/26/2018 urina lysis , dipst ick Protein Negati ve Not Available In-Office Order Internal Use Only DO Not Attach Compendium DO Not Attach Compendium, Do Not Delete/merge, [id number] 10/26/2018 11:21:30 10/27/1910/26/2018 urina lysis , dipst ick Glucose Negati ve Not Available In-Office Order Internal Use Only DO Not Attach Compendium DO Not Attach Compendium, Do Not Delete/merge, [id number] 10/26/2018 11:21:30 10/05/19 20 10/05/2019 pregn nahum test, urine HCG negati ve Not Available In-Office Order Internal Use Only DO Not Attach Compendium DO Not Attach Compendium, Do Not Delete/merge, [id number] 10/05/2019 12:14:51 11/16/1911/17/2019 lh + FSH, serum LH 55.3 mIU/m L Adult Femal e: Folli cular phase 2.4 - 12.6 Ovula tion phase 14.0 - 95.6 Lutea l phase 1.0 - 11.4 Postm enopa usal 7.7 - 58.5 Not Available [facility] ([facility]) [address] [facility], [place], [address], 11/17/2019 09:38:47 11/16/1911/17/2019 lh + FSH, serum FSH 11.5 mIU/m L Adult Femal e: Folli cular phase 3.5 - 12.5 Ovula tion phase 4.7 - 21.5 Lutea l phase 1.7 - 7.7 Postm enopa usal 25.8 - 134.8 Not Available [facility] ([facility]) [address] [place], [address], 11/17/2019 09:38:47 11/16/1911/17/2019 TSH, ultra -sens itive , serum TSH 2.050 uIU/m L 0.450- 4.500 Not Available [facility] ([facility]) [address] [place], [address], 11/17/2019 09:38:48 11/16/1911/17/2019 prola ctin, serum prolactin 24.4 NG/mL 4.8-23 .3 above high normal Not Available [facility] ([facility]) [address] [place], [address], 11/17/2019 09:38:48 11/16/1911/16/2019 pregn nahum test, urine HCG negati ve Not Available In-Office Order Internal Use Only DO Not Attach Compendium DO Not Attach Compendium, Do Not Delete/merge, [id number] 11/16/2019 12:29:25 11/01/19 19 10/29/2018 US, obste tric, 1st trime ster No observ ation record ed. [email or web address] [facility] (Radiology) [address] [place], [address], 11/09/2018 18:04:47 Result Notes None recorded. 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 113038326 Active Radha [place] [facility] 9 09:49:34 Microcyt ic anemia 996676600 Active 2017 hgb/hct 10.8/32.5 , MCV 80 Radha [place] [facility] 9 09:49:34 Metaboli c acidosis , increase d anion gap (IAG) 11348778 Active 2017 Radha [place] [facility] 9 09:49:34 Hypokale shaji 96274945 Active 2017 Radha [place] [facility] 9 09:49:34 Pregnanc y 67950228 Completed 201811/30/2018 Radha [place] [facility] 9 09:52:22 Uncontro lled type 1 diabetes mellitus 955080678 Active 2017 Carrie Joseph PA-C Attn: Accountin g,[address] [facility], [place], [address], [place] - [facility] 9 09:30:16 Metaboli c alkalosi s 2990371 Active 2017 Carrie Joseph PA-C Attn: Accountin g,[address] [facility], [place], [address], [place] [facility] 9 09:31:33 Hypereme sis gravidar um with metaboli c disturba nce 202670527 Active 2018 Carrie Joseph PA-C Attn: Accountin g,[address] [facility], [place], [address], [place] - [facility] 9 09:31:33 Notes:multiple admissions fo r DKA and leaving AMA Problem Notes None recorded. Procedures Surgical History Date Name Laterality Status Provider Name and Address Organization Details Recorded Time 11/11/19 19 Dilation and Curettage completed Radha Perez [facility] 11/30/2018 09:54:12 11/10/19 19 Cerumen Removal completed Carrie Joseph PA-C Attn: Accounting,[address] [facility], [place], [address], [facility] 11/09/2018 08:59:31 08/16/19 19 Date of Last [facility]/19/2018 10:17:59 10/11/19 17 Caesarean Section completed Radha [facility] 08/15/2018 14:33:55 05/03/19 11 Tonsillectomy completed KAMI Cool [place] - [place] 01/17/2018 14:10:03 Imaging Results Imaging Date Name Status LastModified by Organiz ation Details LastModified Time 10/29/2018 US, obstetric, 1st trimester completed [email or web address] [facility] (Radiology) [address] [place] [address], [address], 11/09/2018 18:04:47 Procedure Notes None recorded. Medical [...] Not Available No t Available Dexcom G7 Lining Mechanic USE TO MONITOR BLOOD GLUCOSE CONTINUO USLY [...] Updated DateTime 9 156.21 cm 24.5 kg/m2 42206.1 9 g 114 /min 16 /min 98 % 98 % 114 [degF] 122 mm[Hg] 78 mm[Hg] Mar Menjivar [place] - [facility] 9 08:46:55 Date Recorded Body height Body mass index (BMI) Body weight Systolic blood pressure Diastolic blood pressure Provider Name and Address Organization Details Last Updated DateTime 11/09/2018 156.21 cm 25.4 kg/m2 70519.08 g 108 mm[Hg] 60 mm[Hg] [facility] 9 14:53:20 Date Recorded Body height Body mass index (BMI) Body weight Systolic blood pressure Diastolic blood pressure Provider Name and Address Organization Details Last Updated DateTime 11/30/2018 156.21 cm 26.5 kg/m2 91732.27 1962 g 110 mm[Hg] 74 mm[Hg] [facility] 9 09:52:01 Date Recorded Body height Body mass index (BMI) Body weight Systolic blood pressure Diastolic blood pressure Provider Name and Address Organization Details Last Updated DateTime 10/05/2019 156.21 cm 30.1 kg/m2 93507.32 g 100 mm[Hg] 80 mm[Hg] Radha Perez MA [facility] 0 11:58:16 Date Recorded Body height Body mass index (BMI) Body weight Systolic blood pressure Diastolic blood pressure Provider Name and Address Organization Details Last Updated DateTime 11/16/2019 156.21 cm 31.9 kg/m2 95089.17 g 106 mm[Hg] 78 mm[Hg] Cortney aLinez [facility] 0 12:12:18 Date Recorded Body height Provider Name an d Address Organization Details Last Updated DateTime 12/12/2019 156.21 cm Radha Perez MA [facility] 12/11 14:47:30 Social History Question Answer Notes LastModified by Organizat ion Details LastModified Time Tobacco Smoking Status Never Smoker KAMI Cool, [facility] 01/17/2018 14:07:35 Do You Have An [...] available 10/05/2019 Education 12 2 Years At [employer] Information not available 01/17/2018 What Is Your Occupation? [employer] Information not available 10/05/2019 Frequent [...] Of Your Most Recent Tobacco Screening? 11/16/2019 [email or web address] Information not available 11/16/2019 How Many Children [...] How Much Tobacco Do You Smoke? No [email or web address] Information not available 11/16/2019 Smoking Pre- No [...] Skin Problems N Anemia N Heart Attack (SD) N Diabetes Y Ovarian Cancer N Blood [...] virus, quadrivalent, preservative 9 completed Not Available [facility] 05/20/2019 02:37:03 Past Encounters Encounter ID Performer Location Encounter Start Date Encounter Closed Date Diagnosis/Indication Diagnosis SNOMED-CT Code Diagnosis ICD10 Code Diagnosis Note [id number] [facility] Torres (Adult Med) [address] [place] [address] 01/17/2018 13:54:22 01/18/2018 15:15:08 Type 1 diabetes mellitus 34789488 E10.9 reviewed hospital records. Pt instructed to continue current insulin regimen w/ humalog and Lantus, will refill humalog until she can get in with endocrine. She is traveling to [place] next month, not sure what she needs for her insulin needles to take on plane, she has never flown before. Will write letter of medical necessity Microcytic anemia 226764 007 D50.9 reviewed labs from [facility] with patient, will need to review [facility] records from earlier in the year to see if stable or getting worse. Pt is asymptomat ic. Mixed anxi ety and depressive disorder 564400874 F41.8 started on zoloft this last hospital stay; she has appt w/ psych in Mar. Cont current dose, call here if any problems while waiting for appt. Gastropare sis due to type 1 diabetes mellitus 923413058 E10.43 if she develops new N/V or regurgitat ion of foods or constipati on, would recommend gastric emptying study. Gastroesop hageal reflux disease without esophagitis 167530496 K21.9 controlled , cont low acid diet, control DM and cont PPI prn. [id number] [facility] (Adult Med) [address] [place] [address] 05/26/2018 09:45:55 05/30/2018 10:05:02 Type 1 diabetes mellitus 26185182 E10.9 pt reports blood sugars in 100s, but few months ago was hospitaliz ed for DKA. discussed control, frequent testing, bring meter to next visit. Dysuria-fr equency syndrome 0551672 R30.0 w/ DM, tx for UTI, will get cx. discussed controllin g glucose to minimize infections . Generalize d anxiety disorder 35701499 F41.1 reports no anxiety attacks, says sertraline working. Chest pain 36245860 R07. 89 not likely cardiac, but w/ DM recommend stress test. Influenza vaccine needed 1038897044 106 Z23 Constipation 24181183 K5 9.00 discussed how this can contribute to chest pain sxs. Advised her to increase fiber, start stool softener and/or miralax, all available OTC. Drink plenty of water. possible gastropare sis from uncontroll ed DM. [id number] MD Malou Adames (Adult Med) [address] [place] [address] 08/10/2018 08:25:31 08/11/2018 09:08:16 Nausea 023473331 R11.0 pt feels similar to when she [...] gastric emptying study if negative for Amenorrhea 40891014 N91. 2 pt feels similar to when she was last , neg tests at home. Neg here as well. Recommend serum Hcg quantitati ve. Advised her to maintain tight glucose control. Make appt to see gynecologi st for amenorrhea whether or not she is . Type 1 jordyn betes mellitus 33005234 E10.69 recurrent UTI, DKA admission to hospital in late May and Jun. signed out AMA 06/26. She had glucose in 300s during hospital stay, A1c of 9.4% Abnormal urinalysis 1672 78589 R82.90 trace LE, will send for cx due to recurrent hospitaliz ations for UTI and DKA. Glycosuria 54016541 R81 pt reports glucose in 100-200s at home since she was d/c from hospital. Advised her to drink more water, call her endocrinol ogist to discuss high glucose in urine. [id number] Vicky Westfall (ACCOUNT AUDITOR) [address] [place] [address] 08/15/2018 14:14:40 08/16/2018 11:45:52 Gynecologic examination 38677044 Z01.419 First pap today Fertility care 526291103 Z31.84 Pt. not preventing . Pt. encouraged to get glucose under tight control prior to getting . Pt. also advised to start taking vitamins now because need to be taking them before she would know she is . Rx sent to pharmacy. Irregular periods 486882 07 N92.6 Pt. missed her period in Jun. and July. She had negative serum beta hCG quant on 08/10/18. On period now. Will check hormones d/t Type I DM as well. [id number] Vicky Westfall (ACCOUNT AUDITOR) [address] [place] [address] 10/19/2018 10:07:32 10/20/2018 13:18:27 Missed period 68488721 N92.5 UTP positive. Routine an tenatal care 272267217 Z34.81 At [facility], beta hCG quant was 7000 and US showed a 2.5 mm GS with yolk sac. Repeat US ordered. Pre-existi ng type 1 diabetes mellitus in 650892173 O24.019 Poor glucose control. HbA1c 9.4 at [facility] on 10/05/18. DKA x 3 this year (05/21=[facility], 06/21 = [facility], 10/19 = [facility] transferre d to [facility]). Referral to [facility] for transfer of care generated, marii. [id number] Vicky Westfall (ACCOUNT AUDITOR) [address] [place] [address] 10/26/2018 10:57:05 10/27/2018 11:52:06 Routine care 467476020 Z34.81 Repeat US not until Sat at [facility]. [facility] appt. pending viable by US. RTTee Butcher. for results and POC, marii. [id number] AL[facility] Torres (Adult Med) [address] [place] [address] 11/09/2018 08:36:19 11/10/2018 10:43:27 Type 1 diabetes mellitus 60507942 E10.69 recurrent UTI, DKA admission to hospital in late May and Jun. signed out AMA 06/26. She had glucose in 300s during hospital stay, A1c of 9.4%. Then hospitaliz ed w/ DKA in October, then hyperemesi s and metabolic alkalosis w/ DKA last week and again left AMA, but pt did not acknowledg e that. Reviewed most recent hospital records at [facility] and [facility]. Advised her to keep f/u with endocrine this Wednesday; ask them about pneumonia vaccine. Impacted c erumen in right ear [id number] 023158 H61.21 resolved w/ lavage Mood disorder 57904686 F 40 pt has very flat affect and denies any problems when she is here for visits but has had 4 hospitaliz ations for DKA. She would benefit from psychology /psychiatr y referral. Revisit at f/u. [id number] Vicky Westfall (ACCOUNT AUDITOR) [address] [place] [address] 11/09/2018 14:43:07 11/10/2018 11:37:49 Missed miscarriage 76609092 O02.1 While in the hospital for DKA at [facility] pt. [place] [address] [place] [address] confirming miscarriag e. She has not had [...] ion. Pre and post-OP expectatio ns discussed. [id number] Vicky Westfall (ACCOUNT AUDITOR) [address] [place] [address] 11/30/2018 09:44:42 11/30/2018 14:02:55 Oral contraceptive prescribed 802670800 Z30.011 control options discussed. Pt. wants pills. Rx sent to pharmacy. Instructio ns discussed. Possible changes in blood glucose with OCPs discussed. Pt. to manage glucose accordingmarii pena. Postoperative visit 1535 43618 Z09 Pt. recovered. Pathology shows immature POCs, dwp. Pt. does not desire at this time. See below. [id number] Vicky Westfall (ACCOUNT AUDITOR) [address] [place] [address] 10/05/2019 11:46:51 10/06/2019 09:08:38 Missed period 61303587 N92.5 UPT was negative, dwp. If pt. misses next period, take UPT at home and come in for TSH, FSH, prolactin check, dwp. Pt. already does not drink alcohol and she is taking gummie vitamins. [id number] Vicky Westfall (ACCOUNT AUDITOR) [address] [facility] [place] [address] 11/16/2019 12:03:11 11/21/2019 09:33:49 Amenorrhea 02897133 N91.2 UPT is negative, dwp. Will check hormones and do a progestero ne challenge. Rx sent. Lokesh ma discussed. [id number] Vicky Simental [facility] (ACCOUNT AUDITOR) [address] [place] [address] 12/12/2019 08:01:47 12/13/2019 19:23:43 Irregular periods 81295961 N92.6 TSH, FSH, and prolactin within normal [...] Garcia Member ID Guarantor Name 11/09/2018 1 [facility] (MEDICAID HM) [id number] 0003 Karina Fuchs [id number] Karina Fuchs 11/30/2018 1 [facility] (MEDICAID HMO) [id number] 0003 Karina Fuchs [id number] Karina Fuchs 10/05/2019 1 [facility] (MEDICAID HMO) [id number] 0003 Karina Fuchs [id number] Karina Fuchs 11/16/2019 1 [facility] (MEDICAID HMO) [id number] 0003 Karina Fuchs [id number] Karina Fuchs 12/12/2019 1 [facility] (MEDICAID HMO) [id number] 0003 Karina Fuchs [id number] Karina Fuchs Notes Date Note Type Note Provider Name and Address Organization Details Recorded Time 11/09/2018 text/html Pt. presents for follow-up to decreasing beta hCG quant with no bleeding. She denies any pain. Vicky Simental [place], [place] - [facility] 11/09/2018 16:57:54 11/09/2018 text/html [...] d/c. Carrie Joseph PA-C Attn: Accounting,[address] [place], [address], [place] [facility] 11/09/2018 11:24:58 11/30/2018 text/html Pt presents for post OP visit 2 weeks s/p suction D&C for a missed ab. She denies pain and bleeding. She has no complaints but does want to get on control. Vicky collazo, [place] - [facility] 11/30/2018 10:12:44 10/05/2019 text/html Pt presents with c/o missed period. She has not been taking her OCPs since 03/2019 because it messes with her blood sugar. She is using condoms. It has been 36 days since her last cycle and this has never happened to her before. Vicky collazo, [place] - [place] 10/05/2019 12:26:16 11/16/2019 text/html Pt. [...] Domestic Partner Domestic Partner Phone Father Name Time Motion Analyst Status 08/16/19 19 1 CLOSED Fetus Data First Name Last Name Admitted to NICU Weight (g) Sex Living Outcome Pediatric Complications Fetus ID Race Codes Race Delivery Type F Full Term [id number] Héctor Calculation Initial Héctor Date Initial Exam [...] Domestic Partner Domestic Partner Phone Father Name Time Motion Analyst Status 12/01/19 19 1 CLOSED Fetus Data First Name Last Name Admitted to NICU Weight (g) Sex Living Outcome Pediatric Complications Fetus ID Race Codes Race Delivery Type , Spontane ous 38804 Héctor Calculation Initial Héctor Date Initial Exam [...] Domestic Partner Domestic Partner Phone Father Name Time Motion Analyst Status 10/20/19 19 1 O Positive sally link CLOSED Fetus Data First Name Last Name Admitted to NICU Weight (g) Sex Living Outcome Pediatric Complications Fetus ID Race Codes Race Delivery Type [id number] Héctor Calculation Initial Héctor Date Initial Exam Date Initial Exam Provider Initial Ultrasound Date Last Menstrual Period Date Ultra Sound Weeks Gestation 05/13/2019 10/19/2018 [email or web address] 08/06/2018 0 Eighteen To Twenty Week Héctor [...] Weight in lbs Pre/Post Dialysis Refused Weight 134.92334564320 BP Diastolic BP Location Tested BP Systolic BP Type 80 108 sitting Fetus Heart Rate Present Fetus Movement Comments Flowsheet Date 10/26/2018 Regalado Score Blood Edema Fundus Height Fundus Units Glucose Ketones Leukocytes Nitrite Labor Signs Protein Cervic Dilation Cervic Effacement Cervic Station Type Weight in lbs Pre/Post Dialysis Refused Weight 138.162369003871 BP Diastolic BP Location Tested BP Systolic BP Type 72 110 sitting Fetus Heart Rate Present Fetus Movement Comments Flowsheet Date 11/09/2018 Regalado Score Blood Edema Fundus Height Fundus Units Glucose Ketones Leukocytes Nitrite Labor Signs Protein Cervic Dilation Cervic Effacement Cervic Station Type Weight in lbs Pre/Post Dialysis Refused With clothes 132.646256427498 BP Diastolic BP Location Tested BP Systolic BP Type 78 R arm 122 sitting Fetus Heart Rate Present Fetus Movement Comments Flowsheet Date 11/09/2018 Regalado Score Blood Edema Fundus Height Fundus Units Glucose Ketones Leukocytes Nitrite Labor Signs Protein Cervic Dilation Cervic Effacement Cervic Station Type Weight in lbs Pre/Post Dialysis Refused Weight 136.975765319454 BP Diastolic BP Location Tested BP Systolic BP Type 60 L arm 108 sitting Fetus Heart Rate Present Fetus Movement Comments Flowsheet Date 11/30/2018 Regalado Score Blood Edema Fundus Height Fundus Units Glucose Ketones Leukocytes Nitrite Labor Signs Protein Cervic Dilation Cervic Effacement Cervic Station Type Weight in lbs Pre/Post Dialysis Refused Weight 142.642928618657 BP Diastolic BP Location Tested BP Systolic [...] At Estimated Date of Delivery false Thalassemia (Thai, Slovak, Mediterranean, Or Background): MCV < 80 false Neural Tube Defect (Meningom yelocele, Spina Bifida, Or Anencephaly) false Congenital Heart Defect false Down Syndrome false Tiburcio-Sachs (eg, Episcopalian, Cajun, Icelandic-Dutch) f alse Darron Disease false Sickle Cell Disease Or Trait () false Hemophilia Or Other Blood Disorders false Muscular Dystrophy false Cystic Fibrosis false Chilton's Chorea false Mental Retardation/Autism false Other Inherited [...]
--- OUTSIDE RECORDS SUMMARY | 2024-07-18 12:49 | XMS_ITS | Encounter Summary ---
Author Organization [facility] Address [facility] access [facility] [place] [address] Care Team Providers Care Law Firm Consultant Name Role Phone Carrie Joseph PA-C Primary Care Provider Encounter Details Date Type Department Care Team (Late st Contact Info) Description 07/17/2017 Abstract [facility] CONVERSION [address] [place] [address] , Generic Conversion, Social History Tobacco Use [...] Rule Out 04/16/2020 04/22/2020 04/23/2020 3:31 PM HAT BINDER documented as of this encounter Care Teams Law Firm Consultant Relationship Specialty Start Date End Date Carrie Joseph PA-C PCP - General PHYSICIAN DIRECTOR RECREATION 01/11/19 documented as of this encounter
--- OUTSIDE RECORDS SUMMARY | 2024-07-18 12:49 | XMS_ITS | Referral Summary ---
Author Organization [facility] Address [address] [place] [address] Care Team Providers Care Carton Packaging Machine Operator Name Role Phone Warren Phillips MD Unavailable [phone] Miscellaneous, Not In File Unavailable Unava ilable Nicole Garcia DO Unavailable [phone] Naomi Sanches MD Unavailable Teresita Marquez MD [...] 04/29/2021 Assessment & Plan (04/29/2021 8:51 AM MEMORANDUM STATEMENT CLERK): This may be reactive, no source of [...] with HROB and Endocrinology. Pt to call Director Of Sustainability Programs and see if they are comfortable treating [...] [] A1c likely to be rechecked via relief pilot but if not, will check qtrimester Noncompliance with medication regimen 04/26/2019 Tachycardia 03/24/2019 Diabetic gastroparesis ([facility]/HCC) 02/14/2019 Depression 02/11/2019 Hypokalemia 11/08/2018 Assessment & [...] Uncontrolled type 1 diabetes mellitus with hyperglycemia ([facility]) 01/02/2018 Assessment & Plan (11/27/2019 5:40 AM [...] coma associated with type 1 diabetes mellitus ([facility]) 03/24/2019 11/20/2021 Assessment & Plan (04/29/2021 8:50 AM MEMORANDUM STATEMENT CLERK): Patient with multiple admissions for DKA. Patient states that she has been compliant with her insulin and has not missed any doses. Unclear trigger: Viral panel negative On admission patient's glucose was 259, anion gap of 23. Lactate normal. Urinalysis with 4+ ketones, 2+ leukocyte esterase pending the urine culture -beta hydroxybutyrate 1.5 -healthcare educator -consulted Endocrine appreciate assistance possibly needing [...] (02/13/2019): Added automatically from request for surgery [id number] Assessment & Plan (11/27/2019 5:37 AM CDT): [...] often do you attend chur ch or hoahaoism services? Never 01/20/2022 Do you belong to any clubs o r organizations such as baptism groups, unions, fraternal or athletic groups, or [...] on file Legal Sex Female 3:13 AM MEMORANDUM STATEMENT CLERK Gender Identity Not on file Sexual [...] of Race in Diagnosing Kidney Disease, JASN 202). The CKD-EPI equation should not be used for patients with unstable renal function and has not been validated in children and those over 70. Current interpretive data was last reviewed 2021. Blood 07/17/2022 1:22 PM CDT 07/17/2022 1:29 PM CDT us Dre Mancuso MD LAB BLOOD ORDERABLES Final Res ult [facility]OMY [facility]HU (REFORM) [address] [facility] [place] [address] * TSH reflex to free T4 (01/29/2022 10:34 PM CDT) Pathologist [facility] TSH 1.69 0.30 - 4.20 mcIUnit/mL [facility] (REFORM) Blood 01/29/2022 10:3 4 PM CDT 01/29/2022 10:41 PM CDT Gio Sewell MD LAB BLOOD ORDERABLES Final Re sult Performing Organization Address [facility] Co de Phone Number [facility]OM[facility] ([facility]FORM) [address] [place] [address] * (ABNORMAL) Hemoglobin A1c (01/29/2022 10:34 PM CDT) [facility] Hgb A1C 6.6(H) 4.0 - 5.6 % [facility] (REFORM) Estimated Average Glucose 143 mg/dL [facility] (REFORM) Comment: The ADA recommends reporting an estimated Average Glucose (eAG) with all Hemoglobin A1c results using the equation derived from a study of 507 normal and diabetic adults. Minority populations were underrepresented and children were not included. (Diabetes Care 31:5317-2447, 2008). The eAG is not equivalent to a fasting glucose. Blood 01/29/2022 10:3 4 PM CDT 01/29/2022 10:41 PM CDT Gio Sewell MD LAB BLOOD ORDERABLES Final Re sult Performing Organization Address City/[facility]/ZIP Co de Phone Number TOMY SAHU (REFORM) [address] [facility] [place] [address] * Lipid panel (02/08/2017 8:46 PM CDT) [facility] Cholesterol 160 30 - 200 mg/dL [facility] Comment: Interpretive Data Desirable: <200 mg/dL Borderline high: 200-239 mg/dL High: > or = 240 mg/dL Literature Reference: National Cholesterol Education Program (NCEP) Expert Panel on Detection, Evaluation, and Treatment of High Blood Cholesterol in Adults (Adult Treatment Panel III). Circulation 2004; 110:227. Current interpretive data was last revised on 2015. Triglycerides 66 0 - 150 mg/dL [facility] Comment: Interpretive Data Desirable: < 150 mg/dL Borderline High: 150 - 199 mg/dL High: 200 - 499 mg/dL Very High: > or = 499 mg/dL Literature Reference: See Cholesterol Current interpretive data was last revised on 2015. HDL 57 >=40 mg/dL [facility] Comment: Interpretive Data Less than 40 mg/dL - low; A major risk factor for heart disease. Greater than or equal to 60 mg/dL - High; considered protective of heart disease. Literature Reference: See Cholesterol Current interpretive data was last revised on 2015. LDL, calculated 90 10 - 129 mg/dL [facility] Comment: Interpretive Data Optimal: < 100 mg/dL Near Optimal: 100 - 129 mg/dL Borderline High: 130 - 159 mg/dL High: 160 - 189 mg/dL Very high: > or = 190 mg/dL Literature Reference: See Cholesterol Current interpretive data was last revised on 2015. Non-HDL Cholesterol 103 mg/dL [facility] Comment: Interpretive Data When triglycerides are >200 mg/dL, non-HDL C is a secondary target of therapy, with a goal 30 mg/dL higher than the identified LDL-C goal. Reference: See Cholesterol Reference. Current interpretive data was last revised 2015. Blood specimen (specimen) 02/08/2017 8:46 PM CDT 02/08/2017 9:09 PM CDT us Demialejandro Blair LAB BLOOD ORDERABLES Final Resul t [facility] Department [place] [address] from Last 3 Months or Most Recently Relevant to Health Maintenance Insurance [employer] [facility] IDPA Advance Directives For more information, please contact: [phone] * Full Code (Latest Code Status on [...] Agents on File Name Relationship Healthcare Agent [facility] Communication Karen Fuchs Mother First Alternate Health Care Agent Care Teams Carton Packaging Machine Operator Relationship Specialty Start Date End Date Teresita Marquez MD [address] [place] [address] [place] [address] PCP - General Family Medicine 02/02/22 Warren Phillips MD Consulting Physician Gastroenterology 02/16/19 Miscellaneous, Not In File 07/23/21 Nicole Garcia DO [address] [place] [address] [place] [address] Resident Family Medicine 11/22/21 Naomi Sanches MD [address] [place] [address] [place] [address] Referring Physician General Surgery 11/22/21
[2024-07-18 13:01] LABS: Lipase 28 U/L (23-300); Magnesium 1.8 mg/dL (1.6-2.3)
[2024-07-18 13:02] LABS: Alanine Aminotransferase 18 U/L (6-35); Alkaline Phosphatase 87 U/L (38-126); Anion Gap 18 mmol/L (4-12); Aspartate Amino Transferase 20 U/L (14-36); Bilirubin,Total 1.4 mg/dL (0.2-1.3); Blood Urea Nitrogen 23 mg/dL (7-17); Calcium 10.1 mg/dL (8.4-10.2); Carbon Dioxide 20 mmol/L (22-30); Chloride 95 mmol/L (98-107); Estimated Glomerular Filt Rate > 60; Glucose 218 mg/dL (65-110); Potassium 4.1 mmol/L (3.4-5.0); Sodium 133 mmol/L (137-145)
[2024-07-18 13:07] LABS: Beta-Hydroxybutyrate/Acetoacetate 3.94 mmol/L (0.02-0.27)
--- OUTSIDE RECORDS SUMMARY | 2024-07-18 13:19 | XMS_ITS | Clinical Summary ---
Author Organization [facility] Address [address] [place] [address] Phone Care Team Providers Care Community Manager Name Role Phone Naomi Sanches MD Unavailable Genie Reid MD Primary Care Provider [phone] Allergies No known active allergies Medications Glucose Blood (BLOOD GLUCOSE TEST STRIPS) Strip 1 Strip by Does not apply route 4 times daily. 400 Each 3 0 Active ReliOn Pen Friend 32G X 4 MM Misc 4 times [...] line. 10 Tablet 4 Active Continuous Glucose Carpenter Railcar (Dexcom G7 Carpenter Railcar) Device Check blood glucose before each meal [...] Department Care Team Description 05/25/2024 9:15 AM BUSINESS DEVELOPMENT OFFICER Office Visit [facility] - Endocrinology [facility] [address] [place] [address] Naomi Sanches MD Type 1 [...] Comments Blood Pressure 120/74 05/25/2024 9:10 AM BUSINESS DEVELOPMENT OFFICER Pulse 107 05/25/2024 9:10 AM BUSINESS DEVELOPMENT OFFICER Temperature 36.3 C (97.3 F) 05/25/2024 9:10 AM BUSINESS DEVELOPMENT OFFICER Respiratory Rate 22 05/25/2024 9:10 AM BUSINESS DEVELOPMENT OFFICER Oxygen Saturation 97% 05/25/2024 9:10 AM BUSINESS DEVELOPMENT OFFICER Inhaled Oxygen Concentration - - Weight 80.3 kg (177 lb) 05/25/2024 9:10 AM BUSINESS DEVELOPMENT OFFICER Height 157.5 cm (5' 2 ) 05/25/2024 9:10 AM BUSINESS DEVELOPMENT OFFICER Body Mass Index 32.37 05/25/2024 9:10 AM BUSINESS DEVELOPMENT OFFICER Plan of Treatment Upcoming Encounters Date Type Department Care Team (Late st Contact Info) Description 08/23/2024 9:45 AM CDT Office Visit [facility] - Endocrinology - [place] [address] [place] [phone] Naomi Sanches MD [address] [phone] Health Maintenance Due Date Last Done Comments [...] POCT GLYCOSYLATED HEMOGLOBIN Routine 05/25/2024 9:15 AM BUSINESS DEVELOPMENT OFFICER Type 1 diabetes mellitus without complication (HCC) CMP (COMPREHENSIVE METABOLIC PANEL) STAT 07/21/2017 9:00 PM CDT from Last 3 Months or Most Recently Relevant to Health Maintenance Results * POCT GLYCOSYLATED HEMOGLOBIN (05/25/2024 9:15 AM BUSINESS DEVELOPMENT OFFICER) HGB-A1C 5.4 4 - 6 % Blood 05/25/2024 9:15 AM BUSINESS DEVELOPMENT OFFICER us Wonil Tae MD POINT OF CARE TESTING (MANUAL) F inal Result * (ABNORMAL) CMP (Comprehensive Metabolic Panel) (07/21/2017 9:00 PM CDT) SODIUM 139 131 - 143 mmol/L 07/21/2017 10:05 PM CDT [facility] POTASSIUM 4.7 3.5 - 5.1 mmol/L 07/21/2017 10:05 PM CDT [facility] CHLORIDE 94(L) 100 - 110 mmol/L 07/21/2017 10:05 PM T [facility] CO2, VENOUS 21(L) 22 - 32 mmol/L 07/21/2017 10:05 PM T [facility] ANION GAP 28.7(H) 8.0 - 20.0 mmol/L 07/21/2017 10:05 PM T [facility] GLUCOSE 310(H) 70 - 105 mg/dL 07/21/2017 10:05 PM T [facility] BUN 19 10 - 31 mg/dL 07/21/2017 10:05 PM T [facility] CREATININE, BLOOD 0.46(L) 0.60 - 1.30 mg/dL 07/21/2017 10:05 PM [facility] BUN/CREATININE RATIO 41(H) 12 - 20 ratio 07/21/2017 10:05 PM [facility] TOTAL PROTEIN 8.1 6.0 - 8.3 g/dL 07/21/2017 10:05 PM T [facility] ALBUMIN 4.9 3.5 - 5.2 g/dL 07/21/2017 10:05 PM [facility] A/G RATIO 1.5 1.0 - 2.0 07/21/2017 10:05 PM [facility] CALCIUM 10.2 8.9 - 10.3 mg/dL 07/21/2017 10:05 PM T [facility] T BILI 0.4 0.3 - 1.2 mg/dL 07/21/2017 10:05 PM CDT [facility] SGOT (AST) 12 1 - 32 U/L 07/21/2017 10:05 PM CDT [facility] SGPT (ALT) 9 1 - 33 U/L 07/21/2017 10:05 PM CDT [facility] ALKALINE PHOSPHATASE 116(H) 35 - 105 U/L 07/21/2017 10:05 PM CDT [facility] GFR, EST. NONAFRICAN >60 >=60 07/21/2017 10:05 PM CDT [facility] GFR, EST. >60 >=60 07/21/2017 10:05 PM CDT [facility] Comment: Creatinine Clearance is the preferred criteria for selecting drug dose adjustments in renally impaired patients. The GFR is provided as additional pertinent clinical information. GFR is reported in mL/min/1.73 sq m. Blood specimen (specimen) Venous Catheter (IV) / Unknown 07/21/2017 9:00 PM CDT 07/21/2017 9:42 PM CDT us Renzo Nuñez MD CHEMISTRY ORDERABLES Chanell betancourt Result [facility] [address] [place] [address] from Last 3 Months or Most Recently Relevant to Health Maintenance Insurance MEDICAID [employer] Advance Directives * Full Code [...] measures to stabilize the patient. Care Teams Community Manager Relationship Specialty Start Date End Date Genie Reid MD [address] [place] [address] PCP - General Obstetrics & Gynecology 07/14/24 Naomi Sanches MD [address] [phone] Consulting Physician Endocrinology 05/21/20
--- OUTSIDE RECORDS SUMMARY | 2024-07-18 13:19 | XMS_ITS | Encounter Summary ---
Author Organization [facility] Address [address] [place] [address] Care Team Providers Care Marine Gear Keeper Name Role Phone Jolanta Freeman MD Primary Care Provider [phone] Reason for Visit * Reason Onset Date Comments MEDICATION REFILL 03/18/2018 Encounter Details Date Type Department Care Team (Late st Contact Info) Description 03/18/2018 Refill [facility] Diabetes [facility] Met[facility] [address] [place] [address] Pawan Ram MD [address] [place] [address] MEDICATION REFILL Social History Tobacco Use Types [...] on filedocumented in this encounter Care Teams Marine Gear Keeper Relationship Specialty Start Date End Date Jolanta Freeman MD PCP - General Pediatrics 05/24/13 documented as of this encounter
--- OUTSIDE RECORDS SUMMARY | 2024-07-18 13:20 | XMS_ITS | Encounter Summary ---
Author Organization [facility] Address [facility] [place] [address] Care Team Providers Care Construction Consultant Name Role Phone Carrie Joseph PA-C Primary Care Provider Encounter Details Date Type Department Care Team (Late st Contact Info) Description 07/17/2017 Abstract [facility] CONVERSION [address] [place] [address] , Generic Conversion, Social History Tobacco Use [...] Rule Out 04/16/2020 04/22/2020 04/23/2020 3:31 PM ELECTRIC RAZOR MECHANIC documented as of this encounter Care Teams Construction Consultant Relationship Specialty Start Date End Date Carrie Joseph PA-C PCP - General PHYSICIAN MIXING HOUSE OPERATOR 01/11/19 documented as of this encounter
--- OUTSIDE RECORDS SUMMARY | 2024-07-18 13:20 | XMS_ITS | Data Portability ---
Author Organization [facility] [place] Address [address] [place] [address] [place] [address] Assessment Encounter Date Assessment Date Assessment LastModified by Organization Details LastModified Time 01/28/2023 01/28/2023 Patient is 34 weeks . Discussed T1DM comanagement with MFM. Continue appointments as scheduled with ERNESTIAN Darling at [facility]. [email or web address] Not available 01/28/2023 17:57:06 Plan of Treatment Reminders Order Date Submit Date Provider Last Modified By Organization Details Last Modified Time Details Appointments None recorded. [facility]inal[facility] [address], [address], [place], [address], 12:22:58 Referral None recorded. Procedures None recorded. Surgeries None recorded. Imaging US, obstetric, follow-up [email or web address], [address], [address], [place], [address], 19:57:31 US, obstetric, biophysical profile + non-stress test [email or web address], [address], [address], [place], [address], 19:57:31 Medication Orders promethazin e 12.5 mg tablet 2022 023 [id number], [address] [facility], [place], [place], [id number], 11:19:02 Patient TargetsNo targets recorded. Patient InstructionsNo instructions recorded. Reason for Referral None Reported. Results Created Date Observation Date Name Description Value Unit Range Abnormal Flag Note LastModifiedBy Organization Detail LastModifiedTime 01/29/20 23 01/28/2023 urina lysis , dipst ick Leukocytes Negati ve Not Available [place] [address], [place], [address], 01/28/2023 12:21:38 01/29/20 23 01/28/2023 urina lysis , dipst ick Nitrite Negati ve Not Available [place] [address], [place], [address], 01/28/2023 12:21:38 01/29/20 23 01/28/2023 urina lysis , dipst ick Urobilinogen Negati ve Not Available [place] [address], [place], [address], 01/28/2023 12:21:38 01/29/20 23 01/28/2023 urina lysis , dipst ick Protein Trace Not Available [place] [address], [place], [address], 01/28/2023 12:21:38 01/29/20 23 01/28/2023 urina lysis , dipst ick pH 5 Not Available [place] [address], [place], [address], 01/28/2023 12:21:38 01/29/20 23 01/28/2023 urina lysis , dipst ick Specific Casco 1.030 Not Available [facility] [address], [place], [address], 01/28/2023 12:21:38 01/29/20 23 01/28/2023 urina lysis , dipst ick Ketone Large Not Available [place] [address], [place], [address], 01/28/2023 12:21:38 01/29/20 23 01/28/2023 urina lysis , dipst ick Bilirubin Negati ve Not Available [place] [address], [place], [address], 01/28/2023 12:21:38 01/29/20 23 01/28/2023 urina lysis , dipst ick Glucose 1000 Not Available [place] [address], [place], [address], 01/28/2023 12:21:38 01/29/20 23 01/28/2023 urina lysis , dipst ick Appearance Cloudy Not Available [facility] [address], [place], [address], 01/28/2023 12:21:38 01/29/20 23 01/28/2023 urina lysis , dipst ick Color Dark Yellow Not Available [place] [address], [place], [address], 01/28/2023 12:21:38 01/29/20 23 01/28/2023 US, gabriela taverao w-up No observ ation record ed. [email or web address] [place] [address], [place], [address], 01/28/2023 10:41:08 01/29/20 23 01/28/2023 US, ibis garcia, bioph ysica l profi le + non-s tress test No observ ation record ed. nclark [place] [address], [place], [address], 01/28/2023 10:41:00 01/29/20 23 01/28/2023 US, obste tric, follo w-up No observ ation record ed. bebeto Kassi [address], [place], [address], 02/02/2023 17:54:42 Result Notes None recorded. Problems Name Problem SNOMED Code Status Onset Date Resolution Date Notes Provider Name and Address Organization Details Recorded Time Pregnanc y 50689395 Completed 202202/19/2023 Manda Yousif [facility] 3 11:10:14 Type 1 diabetes mellitus 13704733 Completed followed by Tatyana DO, last A1c 6.7%, on insulin pump with CGM; hx of DKA at beginnin g of pregnanc y, frequent nausea/v omiting Manda Yousif [facility] 3 11:10:13 Ketoacid osis due to type 1 diabetes mellitus 087244528 Active 2018 Type 1 diabetes mellitus with ketoacid osis without coma;Pra ctice ID: [id number] Not Available [facility] 0 21:12:57 Pregnanc y and type 1 diabetes mellitus 785791543 Active 2018 Pre-exis ting diabetes , type 1, in pregnanc y, first trimeste r;Practi ce ID: 0001 Not Available [facility] 0 21:12:57 Finding of contents of cervix 504329061 Active 2018 Weeks of gestatio n of pregnanc y not specifie d;Practi ce ID: 0001 Not Available [facility] 0 21:12:57 Problem Notes None recorded. Procedures Surgical History Date Name Laterality Status Provider Name and Address Organization Details Recorded Time 0 Dilation and curettage completed [facility] 01/28/2023 11:05:45 9 Dilation and curettage completed [facility] 01/28/2023 11:05:39 7 section completed [facility] 01/28/2023 10:33:36 Imaging Results Imaging Date Name Status LastModified by Organiz ation Details LastModified Time 01/28/2023 US, obstetric, follow-up completed [address], [place], [address], 01/28/2023 10:41:08 01/28/2023 US, obstetric, biophysical profile + non-stress test completed [address], [place], [address], 01/28/2023 10:41:00 01/28/2023 US, obstetric, follow-up completed bebeto [address] [facility], [place], [address], 02/02/2023 17:54:42 Procedure Notes None recorded. Medical [...] THE CASE OF INSULIN PUMP FAILURE. NOTIFY [facility] DM TEAM LUPE IF PUMP FAILS [...] Updated DateTime 01/28/2023 157.48 cm 28.5 kg/m2 53709.40 972 g 130 mm[Hg] 77 mm[facility]Hg[facility] 10:40:10 Date Recorded Body height Body mass index (BMI) Body weight Systolic blood pressure Diastolic blood pressure Provider Name and Address Organization Details Last Updated DateTime 03/08/2023 157.48 cm 29.6 kg/m2 38210.53 g 101 mm[Hg] 69 mm[Hg] [facility] 3 11:20:49 Social History Question Answer Notes LastModified by Organizat ion Details LastModified Time Tobacco Smoking Status Never Smoker [facility] 01/28/2023 10:33:11 What Is Your Level [...] N Drug/Latex Allergies/Reactions N Blood Transfusion N Lung Disease N Dermatologic Disorders N Defects or Inherited Disease N Breast Problem N Gestational Diabetes N Hematologic disorders N Anesthesia Complications N History of STI N Deep Vein Thrombosis N Polycystic ovary syndrome N Anxiety Disorder N Autoimmune disease N Arthritis N Polyps N Infertility N History of abnormal pap N Acid Reflux (GERD) N Cancer N Varicosities N Stroke N Neurologic/Epilepsy N Endometriosis N High Cholesterol N Fibromyalgia N Headaches N Kidney Disease N Heart Problems N [...] SNOMED-CT Code Diagnosis ICD10 Code Diagnosis Note [id number] Irasema Jackson [place] [address] [address] 01/28/2023 09:49:55 01/28/2023 11:26:01 Pre-existing type 1 diabetes mellitus in 785676440 O24.019 O36.8190 Z3A.34 [id number] TAHIRA BLANC MD [place] [address] [address] 01/28/2023 10:02:14 01/28/2023 17:59:18 Vomiting of 19371533 O21.9 Urinary tr act infection in 013596153 O23.43 Pre-existi ng type 1 diabetes mellitus in 758856672 O24.019 - warning signs for DKA reviewed with patient, instructed to go to ER if having intractabl e nausea/vom iting Gestation period, 34 weeks 03425441 Z3A.34 [id number] TAHIRA BLANC MD [place] [address] [address] 03/08/2023 10:55:24 03/08/2023 12:17:02 care 050089635 Z39.2 S/p RLTCS 4 weeks ago here today for a visit.1. Patient recovering well2. Plans to continue breast feeding/pu mping, would like to stop supplement ation if able to, seeing LC at [facility] office3. Interested in POPs for contracept ion at this time. Risks, benefits, and alternativ es reviewed with the patient. Slynd samples given4. Patient instructed to follow up in 1 year for well woman exam unless need arises prior depression 58 488953 F53.0 - EPDS 19- denies SI/HI- starting counseling with [facility] next week- not interested in starting medical therapy at this time, will see how she feels after starting counseling Pre-existi ng type 1 diabetes mellitus in 314784639 O24.019 - warning signs for DKA reviewed with patient, instructed to go to ER if having intractabl e nausea/vom iting Pre-eclampsia 978180356 O14.15 Health Concerns Section Related Observation LastModified by Organization Detai ls LastModified Time None Recorded Concern Status LastModified by Organization Details LastModified Time None Recorded Advance Directives Directive None Recorded Payers Encounter Date Sequence Insurance Name Policy Number Policy Garcia Covered Member ID Garcia Member ID Guarantor Name 01/28/2023 1 [place] [facility] Karina Fuchs [id number] Karina Fuchs 01/28/2023 1 [place] [facility] Karina Fuchs [id number] Karina Fuchs 03/08/2023 1 [place] [facility] Karina Fuchs [id number] Karina Fuchs Notes Date Note Type Note Provider Name and Address Organization Details Recorded Time 01/28/2023 text/html Presents to establish OB care. Has not been seen by OBGYN since October, however has followed with Dr. Neal with [facility] closely for diabetic control. EDC 03/09/23; US and echo wnl Vasovagal with laying flat, no LOC. Hx of c section; would like repeat c section. T1DM:- Diagnosed at age 12- Managed outside by Dr. Sanches (endocrinology)- Pre- regimen: insulin pump, settings unknown- Antepartum regimen: insulin pump,12-3 basal 1, 1:30, 1:33-8 basal 1.558-7p basal 17-12a basal 1, ICR 1:4- regimen: tbd from [facility]- Last dilated eye exam: 08/2022- Last EKG: has not performed- Evidence of end organ damage: elevated- echo: wnl Was in ICU for DKA at beginning of , no further admissions.Getting nauseous every 2-3days, throwing up; zofran/reglan not working, scop patch works sometimes, no heartburn, no food triggers, TAHIRA BLANC MD [address], [place], [address], [place] [facility] 01/28/2023 17:58:23 03/08/2023 text/html S/P RLTCS on 02/07 at 35 weeks gestation. was complicated by preeclampsia with severe features and T1DM. They named her Astrid. Complications with delivery: none. Patient denies any specific problems since delivery. Patient overall feeling well. Patient is combo feeding without problems. Needs rx for breast pump. Has not had a period yet. No bleeding. Bowel and bladder function are normal. Patient has not been sexually active since delivery. Patient interested in contraception at this time, discussed hormonal vs nonhormonal options. Starting counseling on March 16, [facility]. Feeling very overwhelmed at home, feels she is not doing enough around the house. Has good support at home, her fiance is very involved. EPDS 19. TAHIRA BLANC MD [address], [place], [address], [place] [facility] 03/08/2023 11:57:41 OBGyn Episode Ob Episode Information Episode Created Date Number of Fetuses Patient Bloodtype Patient rh Status Prepregnancy Weight lbs Domestic Partner Domestic Partner Phone Father Name Supply Chain Intern Status 01/29/20 23 1 O Positive 174 CLOSED Fetus Data First Name Last Name Admitted to NICU Weight (g) Sex Living Outcome Pediatric Complications Fetus ID Race Codes Race Delivery Type [id number] Repeat Problems Problem Notes Problem Name Start Date End Date Resolution Snomed Code Not e Type 1 diabetes mellitus 97551824 followed by Rita negro M, last A1c 6.7%, on insulin pump with [...] Date Ultra Sound Latest Days Gestation 0 [email or web address] 01/28/2023 03/09/20 23 0 Pre- Flowsheet Flowsheet Date 01/28/2023 Regalado Score Blood Edema Fundus Height Fundus Units Glucose Ketones Leukocytes Nitrite Labor Signs Protein Cervic Dilation Cervic Effacement Cervic Station none Type Weight in lbs Pre/Post Dialysis Refused Weight 156.402629868608 BP Diastolic BP Location Tested BP Systolic [...] Estim ated Date of Delivery false Thalassemia (Albanian, Palauan, Mediterranean, Or Background): MCV < 80 false Neural Tube Defect (Meningomyelocele, Spina Bifi da, Or Anencephaly) false Congenital Heart Defect false Down Syndrome false Tiburcio-Sachs (eg, Yarsanism, Cajun, Sinhala-Landers) f alse Darron Disease false Sickle Cell Disease Or Trait () false Hemophilia Or Other Blood Disorders false Muscular Dystrophy false Cystic Fibrosis false Greenbrier's Chorea false Intellectual Disability/Autism false If Yes, [...] Domestic Partner Domestic Partner Phone Father Name Supply Chain Intern Status 01/29/20 23 1 CLOSED Fetus Data First Name Last Name Admitted to NICU Weight (g) Sex Living Outcome Pediatric Complications Fetus ID Race Codes Race Delivery Type [id number] Primary Héctor Calculation Initial Héctor Date Initial [...]
--- OUTSIDE RECORDS SUMMARY | 2024-07-18 13:20 | XMS_ITS | Clinical Summary ---
Author Organization [facility] Address [address] [place] [address] Phone Care Team Providers Care Senior Sous Chef Name Role Phone Unavailable Primary Care Provider Unavailabl e Allergies No known active allergies Medications vit,calc76/iron/f olic (PNV 29-1 ORAL) Take by mouth. 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 Notify MD [...] with HROB and Endocrinology. Pt to call Hematology Technologist and see if they are comfortable treating [...] [] A1c likely to be rechecked via patient support assistant but if not, will check qtrimester Diabetic [...] Data STL ABSTRACTION Provider, Abstract 05/05/2024 Telephone [facility] [address] [place] [address] Kathryn Coppola Appointment Notification 05/04/2024 Telephone [facility] [address] [place] [address] Juhi Mathews MD Appointment Notification [...] 5.7(H) <5.7 % 01/30/2023 8:43 AM CDT [facility] EST. AVG GLUCOSE, A1C 117 mg/dL 01/30/2023 8:43 AM CDT [facility] Blood Venipuncture / Unknown 01/30/2023 3:57 AM CDT 01/30/2023 4:01 AM CDT Narrative [facility] - 01/30/2023 8:43 AM CDT HGB A1C INTERPRETATION NORMAL: <5.7% PRE-DIABETES: 5.7 - 6.4% DIABETES: 6.5% OR GREATER Manuel Goldstein MD CHEMISTRY ORDERABLES Final Resul t [facility] CLIA# [id number] [address] [place] [id number] from Last 3 Months or Most Recently Relevant to Health Maintenance Insurance [facility] [place] RX [employer] Commercial RX AG[employer] PLANS (INTERNAL) [facility] Internal Plans RX [employer] Commercial RX [employer] Commercial [[id number] Advance Directives For more information, please contact: [phone] * Full Code (Latest Code Status on File) Date Activated Date Inactivated Comments 02/07/2023 8:45 AM 02/13/2023 3:42 PM * Full Code Date Activated Date Inactivated Comments 02/07/2023 8:43 AM 02/07/2023 8:45 AM * Full Code Date Activated Date Inactivated Comments 01/29/2023 4:27 PM 02/07/2023 8:43 AM
--- OUTSIDE RECORDS SUMMARY | 2024-07-18 13:20 | XMS_ITS | Clinical Summary ---
Author Organization [facility] Address [address] [place] [address] Care Team Providers Care Sofa Inspector Name Role Phone Jolanta Freeman MD Primary Care Provider + [phone] Source Comments [facility],non-owned Affiliates and Associated Physician Practices is amultiple site organization consisting of ambulatory clinics and hospital sitesin [place], [place], [place] and [place]. This disclosure is being madepursuant to the Care Everywhere program and may not contain all information available regarding this patient. Last updated 18.[facility] Allergies No known active allergies Medications * [...] - 106 mg/dL 10/09/2018 6:05 AM CDT [facility] Sodium 134(L) 136 - 145 mmol/L 10/09/2018 6:05 AM CDT [facility] Potassium 4.1 3.5 - 5.1 mmol/L 10/09/2018 6:05 AM T [facility] Chloride 99 98 - 107 mmol/L 10/09/2018 6:05 AM T [facility] CO2 26 23 - 31 mmol/L 10/09/2018 6:05 AM T [facility] Calcium 8.9 8.4 - 10.2 mg/dL 10/09/2018 6:05 AM CDT [facility] Anion Gap 9 8 - 16 mmol/L 10/09/2018 6:05 AM T [facility] BUN 2(L) 7 - 18.7 mg/dL 10/09/2018 6:05 AM T [facility] Creatinine 0.44(L) 0.55 - 1.02 mg/dL 10/09/2018 6:05 AM T [facility] Alkaline Phosphatase 69 40 - 150 U/L 10/09/2018 6:05 AM T [facility] ALT 9(L) 13 - 61 U/L 10/09/2018 6:05 AM CDT [facility] AST 12 5 - 34 U/L 10/09/2018 6:05 AM T [facility] Protein Total 6.1(L) 6.4 - 8.3 gm/dL 10/09/2018 6:05 AM T [facility] Albumin 3.6 3.5 - 5.2 gm/dL 10/09/2018 6:05 AM CDT [facility] Bilirubin Total 0.7 0.2 - 1.0 mg/dL 10/09/2018 6:05 AM T [facility] eGFR by MDRD >60 >60 mL/min/1.7 3m2 10/09/2018 6:05 AM CDT [facility] eGFR by MDRD >60 >60 mL/min/1.7 3m2 10/09/2018 6:05 AM CDT [facility] Blood BLOOD SPECIMEN / Unknown Lab Venipuncture / Unknown 10/09/2018 5:22 AM CDT 10/09/2018 5:28 AM CDT Narrative [facility] - 10/09/2018 6:05 AM CDT Attention clinician: BUN Reference Range has changed. Suni Barrera MD LAB - CHEMISTRY O RDERAETTA Performing Organization Address [facility] Co de Phone Number [facility] [address] [place] [address] [phone] * (ABNORMAL) HEMOGLOBIN A1C (10/08/2018 12:52 AM CDT) Pathologist [facility] Hemoglobin A1c 10.3(H) 4.0 - 6.1 % 10/08/2018 1:18 AM CDT [facility] Estimated Average Glucose 249 mg/dL 10/08/2018 1:18 AM CDT [facility] Blood BLOOD SPECIMEN / Unknown Lab Venipuncture / Unknown 10/08/2018 12:52 AM CDT 10/08/2018 12:57 AM CDT Narrative [facility] - 10/08/2018 1:18 AM CDT Attention clinician: Reference Range has changed. Cody Palmer MD LAB - CHEMISTRY HANDY KONG Performing Organization Address City/[facility] Co de Phone Number [facility] [address] [place] [phone] * HIV-1 HIV-2 ANTIBODY + HIV P24 AG PANEL (10/07/2018 8:53 PM CDT) Pathologist [facility] HIV1/2 Ab + P24 Ag Non Reactive Non Reactive 10/07/2018 9:41 PM CDT [facility] Blood BLOOD SPECIMEN / Unknown Lab Venipuncture / Unknown 10/07/2018 8:53 PM CDT 10/07/2018 8:59 PM CDT Narrative [facility] - 10/07/2018 9:41 PM CDT No Laboratory evidence of HIV infection. Franchesca Orellana MD LAB - CHEMISTR Y ORDERABLES [facility] [address] [place] [address] from Last 3 Months or Most Recently [...] 9:40 PM 11/30/2017 4:07 PM Care Teams Sofa Inspector Relationship Specialty Start Date End Date Jolanta Freeman MD PCP - General Pediatrics 05/24/13
--- OUTSIDE RECORDS SUMMARY | 2024-07-18 13:20 | XMS_ITS | Clinical Summary ---
Author Organization [facility] Address [facility] [place] [address] Care Team Providers Care Electrical/Instrument Technician Name Role Phone EmeraldCarrie moreland Josette [...] AM [facility] Anesthesia Event [facility] [address] [place] [address] Lex Perea, Alam Zaman MD 05/10/2024 7:30 AM TOOL BUILDER - 05/10/2024 8:19 AM [facility] Surgery [facility] [address] [place] [address] Genie Pittman MD DILATATION & CURETTAGE SUCTION WITH 12 CURVED VACUUM CURETTE, TRANSVAGINAL ULTRASOUND 05/10/2024 6:42 AM TOOL BUILDER - 05/10/2024 10:30 AM [facility] Hospital Encounter [facility] [address] [place] [address] Genie Pittman MD Discharge Disposition: Home or Self Care (Routine Discharge) 05/10/2024 Travel 05/05/2024 Travel 05/04/2024 12:03 PM TOOL BUILDER - 05/04/2024 11:59 PM TOOL BUILDER Hospital Encounter [facility] [address] [place] [address] Genie Pittman MD Discharge Disposition: Home or Self Care (Routine Discharge) 05/04/2024 Orders Only [facility] [address] [place] [address] Genie Pittman MD 05/04/2024 Travel from Last [...] Comments Blood Pressure 98/45 05/10/2024 9:45 AM TOOL BUILDER Pulse 105 05/10/2024 8:22 AM TOOL BUILDER Temperature 36.7 C (98 F) 05/10/2024 9:15 AM TOOL BUILDER Respiratory Rate 18 05/10/2024 8:22 AM TOOL BUILDER Oxygen Saturation 99% 05/10/2024 9:45 AM TOOL BUILDER Inhaled Oxygen Concentration - - Weight 77.1 kg (170 lb) 05/10/2024 6:54 AM TOOL BUILDER Height 154.9 cm (5' 1 ) 05/10/2024 6:54 AM TOOL BUILDER Body Mass Index 32.12 05/10/2024 6:54 AM TOOL BUILDER Plan of Treatment Health Maintenance Due Date [...] DILATATION & CURETTAGE SUCTION 05/10/2024 7:35 AM TOOL BUILDER MISSED Case Notes IDDM-has insulin pump PATHOLOGY Routine 05/10/2024 12:00 AM TOOL BUILDER URINE BACTERIA CULTURE Routine 05/04/2024 12:17 PM TOOL BUILDER Pre-operative laboratory examination TYPE & SCREEN Routine 05/04/2024 12:17 PM TOOL BUILDER Pre-operative laboratory examination HC URINALYSIS AUTO W/O MICRO Routine 05/04/2024 12:17 PM TOOL BUILDER Pre-operative laboratory examination CBC W/DIFF AUTOMATED Routine 05/04/2024 12:17 PM TOOL BUILDER Pre-operative laboratory examination from Last 3 Months Results * Pathology (05/10/2024 12:00 AM TOOL BUILDER) PATHOLOGY [facility] Department of Laboratory Medicine [address] [place] [phone] , extension [phone] Pathology Report Surgical Pathology Report Name: KARINA FUCHS Specimen #: [id number] Age: 2 1995 (Age: 28) Location: [facility] Sex: F Procedure Date: 05/10/2024 Hospital #: [id number] Date Received: 05/11/2024 Date Reported: 05/12/2024 Provider: [...] No further discrete parenchymal lesions are identified. Professor Of Spanish sections are submitted as follows: 1 office services representative umbilical cord, including constrictive proximal focus 23 random sections. Please note: The specimen is returned to the collecting facility following microscopic examination. Gross examination (when applicable) was performed at [facility], [address] [place] [address]. This case was interpreted and signed out at [facility], [address] [place] [address]. Electronically Signed Out Gilmar Santana M.D. [facility] TISSUE PRODUCTS OF CONCEPTION TISSUE SPECIMEN / Unknown 05/10/2024 8:00 AM TOOL BUILDER us Genie Pittman MD PATHOLOGY/CYTOLOGY ORDERABLES Final Result [facility] [address] [place] [address], [phone] * TYPE & SCREEN (05/04/2024 12:17 PM TOOL BUILDER) ABO/RH O POSITIVE 05/04/2024 4:37 PM TOOL BUILDER [facility] ANTIBODY SCREEN NEGATIVE 05/04/2024 4:37 PM [facility] SAMPLE EXPIRATION 05/18/2024,2 359 05/06/2024 7:40 AM TOOL BUILDER [facility] 05/04/2024 12:1 7 PM TOOL BUILDER us Genie Pittman MD BLOOD BANK TEST ORDERABLES Fin al Result [facility] [address] [place] [address], [place] [phone] * (ABNORMAL) URINALYSIS (05/04/2024 12:17 PM TOOL BUILDER) COLOR (U) YELLOW 05/04/2024 1:48 PM [facility] TRANSPARENCY CLEAR 05/04/2024 1:48 PM TOOL BUILDER [facility] SPECIFIC GRAVITY (U) 1.010 1.002 - 1.030 05/04/2024 1:48 PM [facility] U PH 7.0 4.5 - 8.0 05/04/2024 1:48 PM [facility] LEUKOCYTES (U) 1+(A) NEGATIVE 05/04/2024 1:48 PM [facility] NITRITES NEGATIVE NEGATIVE 05/04/2024 1:48 PM [facility] PROTEIN RANDOM (U) 1+(A) NEGATIVE 05/04/2024 1:48 PM [facility] GLUCOSE (U) 4+(A) NEGATIVE 05/04/2024 1:48 PM TOOL BUILDER [facility] KETONES MG/DL (U) NEGATIVE NEGATIVE 05/04/2024 1:48 PM TOOL BUILDER [facility] UROBILINOGEN NORMAL NORMAL EU/DL 05/04/2024 1:48 PM TOOL BUILDER [facility] BILIRUBIN (U) NEGATIVE NEGATIVE 05/04/2024 1:48 PM TOOL BUILDER [facility] BLOOD (U) 3+(A) NEGATIVE 05/04/2024 1:48 PM TOOL BUILDER [facility] WBC/HPF 0-5 /HPF 05/04/2024 1:48 PM TOOL BUILDER [facility] RBC/HPF 5-10 /HPF 05/04/2024 1:48 PM TOOL BUILDER [facility] EPI/HPF 5-10 /HPF 05/04/2024 1:48 PM TOOL BUILDER [facility] BACTERIA (U) 1+ /HPF 05/04/2024 1:48 PM [facility] MUCUS 2+ 05/04/2024 1:48 PM [facility] URINE SPECIMEN OBTAINED BY CLEAN CATCH PROCEDURE / Unknown 05/04/2024 12:17 PM TOOL BUILDER us Genie Pittman MD URINE ORDERABLES Final Result [facility] [address] [place] [address], [place] [phone] * (ABNORMAL) URINE BACTERIA CULTURE (05/04/2024 12:17 PM TOOL BUILDER) SPEC DESCRIPTION URINE CLEAN CATCH 05/04/2024 12:28 PM TOOL BUILDER [facility] SPECIAL REQUESTS NO SPECIAL REQUEST 05/04/2024 12:28 PM [facility] CULTURE RESULT 10,000-49,000 COL/ML STREPTOCOCCUS GROUP D-NOT ENTEROCOCCUS SUSCEPTIBILTY NOT ROUTINELY PERFORMED. SAVING ISOLATE FOR 5 DAYS. CONTACT MICROBIOLOGY DEPARTMENT IF FURTHER WORKUP IS INDICATED. (A) 05/07/2024 8:24 AM TOOL BUILDER [facility] URINE SPECIMEN OBTAINED BY CLEAN CATCH PROCEDURE / Unknown 05/04/2024 12:17 PM TOOL BUILDER 05/04/2024 12:28 PM TOOL BUILDER Genie Pittman MD MICROBIOLOGY - GENERAL ORDERAB LES Final Result [facility] [address] [place] [address], [place] [phone] [facility] [address] [place] [address], [place] [phone] * (ABNORMAL) CBC W/DIFF AUTOMATED (05/04/2024 12:17 PM TOOL BUILDER) WBC 10.70 4.50 - 11.00 x10'3/uL 05/04/2024 12:36 PM [facility] RBC 3.94(L) 4.20 - 5.40 x10'6/uL 05/04/2024 12:36 PM [facility] HGB 11.8(L) 12.0 - 16.0 G/DL 05/04/2024 12:36 PM [facility] HCT 35.2(L) 38.0 - 48.0 % 05/04/2024 12:36 PM [facility] MCV 89.3 81.0 - 99.0 FL 05/04/2024 12:36 PM [facility] MCH 29.9 27.0 - 31.0 PG 05/04/2024 12:36 PM [facility] MCHC 33.5 32.0 - 36.0 G/DL 05/04/2024 12:36 PM [facility] RDW 13.2 11.5 - 14.5 % 05/04/2024 12:36 PM [facility] PLT 378 130 - 400 x10'3/uL 05/04/2024 12:36 PM [facility] MPV 8.8(L) 9.3 - 12.2 FL 05/04/2024 12:36 PM [facility] CBC COMMENT AUTOMATED RBC MORPHOLOGY AND PLATELET EVALUATION NORMAL 05/04/2024 12:36 PM [facility] NEUTROPHILS % 77.5 % 05/04/2024 12:36 PM [facility] LYMPHOCYTES % 13.9 % 05/04/2024 12:36 PM [facility] MONOCYTES % 6.9 % 05/04/2024 12:36 PM [facility] EOSINOPHILS 0.4 % 05/04/2024 12:36 PM [facility] BASOPHILS 0.3 % 05/04/2024 12:36 PM [facility] IMMATURE GRANS % 1.0 % 05/04/19 25 12:36 PM [facility] NRBC % 0.0 % 05/04/2024 12:36 PM [facility] ABS. NEUTROPHILS TOTAL 8.29(H) 1.80 - 7.70 x10'3/uL 05/04/2024 12:36 PM [facility] ABS. LYMPHOCYTES 1.49 1.00 - 4.80 x10'3/uL 05/04/2024 12:36 PM [facility] ABS. MONOCYTES 0.74 0.24 - 0.86 x10'3/uL 05/04/2024 12:36 PM [facility] ABS. EOSINOPHILS 0.04 0.04 - 0.36 x10'3/uL 05/04/2024 12:36 PM TOOL BUILDER [facility] ABS. BASOPHILS 0.03 0.01 - 0.08 x10'3/uL 05/04/2024 12:36 PM TOOL BUILDER [facility] ABS. IMMATURE GRANULOCYTES 0.11 0.00 - 0.49 x10'3/uL 05/04/2024 12:36 PM TOOL BUILDER [facility] ABS. NUCLEATED RBC'S 0.00 0.00 - 0.01 x10'3/uL 05/04/2024 12:36 PM TOOL BUILDER [facility] 05/04/2024 12:1 7 PM TOOL BUILDER us Genie Pittman MD LABORATORY Final Result [facility] [address] [place] [phone], from Last 3 Months Insurance C/O PROVID[employer] SERVICES KEANU BAIRES [id number] Advance Directives Documents on File Type Date Recorded Patient Professor Of Spanish Expl anation Advance Directives and Living Will 04/18/2020 9:10 AM 01/10/2007 LIVING [place] Advance Directives and Living Will 04/18/2020 9:09 AM 01/10/2007 HC POA Advance Directives and Living Will 01/07/2017 SHORT FORM POWER OF POLE SETTER Advance Directives and Living Will 01/07/2017 LIVING WILL Advance Directives and Living Will 12/22/2016 LIVING WILL Advance Directives and Living Will 12/22/2016 SHORT FORM POWER OF POLE SETTER * Full Code (Latest Code Status on File) Date Activated Date Inactivated Comments 05/10/2024 8:24 AM 05/10/2024 12:51 PM * Full Code Date Activated Date Inactivated Comments 04/24/2020 11:18 AM 04/24/2020 2:03 PM * Full Code Date Activated Date Inactivated Comments 06/25/2019 6:14 AM 06/25/2019 6:51 PM Care Teams Electrical/Instrument Technician Relationship Specialty Start Date End Date Carrie Joseph PA-C PCP - General PHYSICIAN TOURIST INFORMATION ASSISTANT 01/11/19
--- OUTSIDE RECORDS SUMMARY | 2024-07-18 13:20 | XMS_ITS | Clinical Summary ---
Author Organization [facility] Address [address] [place] [address] Care Team Providers Care Rn New Graduate Name Role Phone Warren Phillips MD Unavailable [phone] Miscellaneous, Not In File Unavailable Unava ilable Nicole Garcia DO Unavailable [phone] Naomi Sanches MD Unavailable Teresita Marquez MD [...] 04/29/2021 Assessment & Plan (04/29/2021 8:51 AM DRIVER LICENSE AGENT): This may be reactive, no source of [...] with HROB and Endocrinology. Pt to call Clinical Aide and see if they are comfortable treating [...] [] A1c likely to be rechecked via manager of housekeeping but if not, will check qtrimester Noncompliance with medication regimen 04/26/2019 Tachycardia 03/24/2019 Diabetic gastroparesis ([facility]CC) 02/14/2019 Depression 02/11/2019 Hypokalemia 11/08/2018 Assessment & [...] Uncontrolled type 1 diabetes mellitus with hyperglycemia ([facility]) 01/02/2018 Assessment & Plan (11/27/2019 [...] coma associated with type 1 diabetes mellitus ([facility]) 03/24/2019 11/20/2021 Assessment & Plan (04/29/2021 8:50 AM DRIVER LICENSE AGENT): Patient with multiple admissions for DKA. Patient states that she has been compliant with her insulin and has not missed any doses. Unclear trigger: Viral panel negative On admission patient's glucose was 259, anion gap of 23. Lactate normal. Urinalysis with 4+ ketones, 2+ leukocyte esterase pending the urine culture -beta hydroxybutyrate 1.5 -clinical trial educator -consulted Endocrine appreciate assistance possibly needing [...] (02/13/2019): Added automatically from request for surgery [id number] Assessment & Plan (11/27/2019 5:37 AM CDT): [...] often do you attend chur ch or evangelical services? Never 01/20/2022 Do you belong to any clubs o r organizations such as buddhism groups, unions, fraternal or athletic groups, or [...] on file Legal Sex Female 3:13 AM DRIVER LICENSE AGENT Gender Identity Not on file Sexual Orientation [...] [facility]/ZIP Co de Phone Number [facility] ([place]) [address] [place] [address] [place] [address] * TSH reflex to free T4 (01/29/2022 10:34 PM CDT) TSH 1.69 0.30 - 4.20 mcIUnit/mL [facility] ([place]) Blood 01/29/2022 10:3 4 PM CDT 01/29/2022 10:41 PM CDT Gio Sewell MD LAB BLOOD ORDERABLES Final Re sult Performing Organization Address [facility] Co de Phone Number [facility] ([place]) [address] [place] [address] [place] [address] * (ABNORMAL) Hemoglobin A1c (01/29/2022 10:34 PM CDT) Hgb A1C 6.6(H) 4.0 - 5.6 % [facility] ([place]) Estimated Average Glucose 143 mg/dL [facility] ([place]) Comment: The ADA recommends reporting an estimated Average Glucose (eAG) with all Hemoglobin A1c results using the equation derived from a study of 507 normal and diabetic adults. Minority populations were underrepresented and children were not included. (Diabetes Care 31:4136-3877, 2008). The eAG is not equivalent to a fasting glucose. Blood 01/29/2022 10:3 4 PM CDT 01/29/2022 10:41 PM CDT us Gio Sewell MD LAB BLOOD ORDERABLES Final Re sult [facility] 1 [facility] Department [place] [address] * Lipid panel (02/08/2017 8:46 PM CDT) Cholesterol 160 30 - 200 mg/dL [facility] Comment: Interpretive Data Desirable: <200 mg/dL Borderline [...] on 2015. HDL 57 >=40 mg/dL [facility] Comment: Interpretive Data Less than 40 mg/dL - low; A major risk factor for heart disease. Greater than or equal to 60 mg/dL - High; considered protective of heart disease. Literature Reference: See Cholesterol Current interpretive data was last revised on 2015. LDL, calculated 90 10 - 129 mg/dL [facility] Comment: Interpretive Data Optimal: < 100 mg/dL Near Optimal: 100 - 129 mg/dL Borderline High: 130 - 159 mg/dL High: 160 - 189 mg/dL Very high: > or = 190 mg/dL Literature Reference: See Cholesterol Current interpretive data was last revised on 2015. Non-HDL Cholesterol 103 mg/dL [facility] Comment: Interpretive Data When triglycerides are >200 mg/dL, non-HDL C is a secondary target of therapy, with a goal 30 mg/dL higher than the identified LDL-C goal. Reference: See Cholesterol Reference. Current interpretive data was last revised 2015. Blood specimen (specimen) 02/08/2017 8:46 PM CDT 02/08/2017 9:09 PM CDT us Tessacamille Pinto LAB BLOOD ORDERABLES Final Resul t [facility] Department [place] [address] from Last 3 Months or Most Recently Relevant to Health Maintenance Insurance [employer] [facility] IDPA Advance Directives For more information, please contact: [phone] * Full Code (Latest Code Status on [...] First Alternate Health Care Agent Care Teams Rn New Graduate Relationship Specialty Start Date End Date Teresita Marquez MD [address] [place] [address] PCP - General Family Medicine 02/02/22 Warren Phillips MD Consulting Physician Gastroenterology 02/16/19 Miscellaneous, Not In File 07/23/21 Nicole Garcia DO [address] [place] [address] Resident Family Medicine 11/22/21 Naomi Sanches MD [address] [place] [address] Referring Physician General Surgery 11/22/21
--- OUTSIDE RECORDS SUMMARY | 2024-07-18 13:20 | XMS_ITS | Referral Summary ---
Author Organization [facility] Address [address] [place] [address] Care Team Providers Care Exhauster Name Role Phone Warren Phillips MD Unavailable [phone] Miscellaneous, Not In File Unavailable Unava ilable Nicole Garcia DO Unavailable Naomi Sanches MD Unavailable Teresita [...] 04/29/2021 Assessment & Plan (04/29/2021 8:51 AM MEDICAL INTERPRETER): This may be reactive, no source of [...] with HROB and Endocrinology. Pt to call Survey Cad Technician and see if they are comfortable treating [...] [] A1c likely to be rechecked via metal solderer but if not, will check qtrimester Noncompliance with medication regimen 04/26/2019 Tachycardia 03/24/2019 Diabetic gastroparesis ([facility]/HCC) 02/14/2019 Depression 02/11/2019 Hypokalemia 11/08/2018 Assessment [...] Uncontrolled type 1 diabetes mellitus with hyperglycemia ([facility]) 01/02/2018 Assessment & Plan (11/27/2019 5:40 [...] associated with type 1 diabetes mellitus ([facility]) 03/24/2019 11/20/2021 Assessment & Plan (04/29/2021 8:50 AM MEDICAL INTERPRETER): Patient with multiple admissions for DKA. Patient states that she has been compliant with her insulin and has not missed any doses. Unclear trigger: Viral panel negative On admission patient's glucose was 259, anion gap of 23. Lactate normal. Urinalysis with 4+ ketones, 2+ leukocyte esterase pending the urine culture -beta hydroxybutyrate 1.5 -assistant health educator -consulted Endocrine appreciate assistance possibly needing [...] (02/13/2019): Added automatically from request for surgery [id number] Assessment & Plan (11/27/2019 5:37 AM CDT): [...] often do you attend chur ch or yarsani services? Never 01/20/2022 Do you belong to any clubs o r organizations such as quaker groups, unions, fraternal or athletic groups, or [...] on file Legal Sex Female 3:13 AM MEDICAL INTERPRETER Gender Identity Not on file Sexual Orientation [...] BLOOD ORDERABLES Final Res ult [facility] ([place]) [address] [place] [address] * TSH reflex to free T4 (01/29/2022 10:34 PM CDT) Pathologist [facility] TSH 1.69 0.30 - 4.20 mcIUnit/mL [facility] Blood 01/29/2022 10:3 4 PM CDT 01/29/2022 10:41 PM CDT Gio Sewell MD LAB BLOOD ORDERABLES Final Re sult Performing Organization Address [facility] Co de Phone Number [facility] ([place]) [address] [place] [address] * (ABNORMAL) Hemoglobin A1c (01/29/2022 10:34 PM CDT) [facility] Hgb A1C 6.6(H) 4.0 - 5.6 % [facility] Estimated Average Glucose 143 mg/dL [facility] ([place]) Comment: The ADA recommends reporting an estimated Average Glucose (eAG) with all Hemoglobin A1c results using the equation derived from a study of 507 normal and diabetic adults. Minority populations were underrepresented and children were not included. (Diabetes Care 31:6801-1105, 2008). The eAG is not equivalent to a fasting glucose. Blood 01/29/2022 10:3 4 PM CDT 01/29/2022 10:41 PM CDT Gio Sewell MD LAB BLOOD ORDERABLES Final Re sult Performing Organization Address City/[facility]/ZIP Co de Phone Number [facility] ([place]) [address] [place] [address] * Lipid panel (02/08/2017 8:46 PM CDT) [facility] Cholesterol 160 30 - 200 mg/dL [facility] Comment: Interpretive Data Desirable: <200 mg/dL Borderline high: 200-239 mg/dL High: > or = 240 mg/dL Literature Reference: National Cholesterol Education Program (NCEP) Expert Panel on Detection, Evaluation, and Treatment of High Blood Cholesterol in Adults (Adult Treatment Panel III). Circulation 2004; 110:227. Current interpretive data was last revised on 2015. Triglycerides 66 0 - 150 mg/dL [facility] Comment: Interpretive Data Desirable: < 150 mg/dL Borderline High: 150 - 199 mg/dL High: 200 - 499 mg/dL Very High: > or = 499 mg/dL Literature Reference: See Cholesterol Current interpretive data was last revised on 2015. HDL 57 >=40 mg/dL [facility] Comment: Interpretive Data Less than 40 [...] on 2015. Non-HDL Cholesterol 103 mg/dL [facility] Comment: Interpretive Data When triglycerides are >200 mg/dL, non-HDL C is a secondary target of therapy, with a goal 30 mg/dL higher than the identified LDL-C goal. Reference: See Cholesterol Reference. Current interpretive data was last revised 2015. Blood specimen (specimen) 02/08/2017 8:46 PM CDT 02/08/2017 9:09 PM CDT us Demialejandro Blair LAB BLOOD ORDERABLES Final Resul t [facility]CHE[facility] Department [place] [address] from Last 3 Months or Most Recently Relevant to Health Maintenance Insurance [employer] [facility] IDPA Advance Directives For more information, please contact: [phone] * Full Code (Latest Code Status on [...] on File Name Relationship Healthcare Agent [facility] Communication Karen Fuchs Mother First Alternate Health Care Agent Care Teams Exhauster Relationship Specialty Start Date End Date Teresita Marquez MD [address] [place] [address] [place] [address] PCP - General Family Medicine 02/02/22 Warren Phillips MD Consulting Physician Gastroenterology 02/16/19 Miscellaneous, Not In File 07/23/21 Nicole Garcia DO [address] [place] [address] [place] [address] Resident Family Medicine 11/22/21 Naomi Sanches MD [address] [place] [address] [place] [address] Referring Physician General Surgery 11/22/21
[2024-07-18 13:37] LABS: Add Urine Microscopic? YES; Appearance Urine Turbid (Clear); Bacteria Urine Rare /hpf; Bilirubin Urine Negative (Negative); Blood Urine Negative (Negative); Color Urine Yellow (Yellow); Glucose Urine UA 3+ mg/dL (Negative); Ketones Urine 4+ mg/dL (Negative); Leukocyte Esterase Ur Negative LEU/UL (Negative); Need Manual Microscopic Reviewed; Nitrate Urine Negative (Negative); Non Pathogenic Casts 0-2; Protein Urine 1+ mg/dL (Negative); RBC Urine 0-2 /hpf (0-2); Specific Grav Ur 1.041 (1.001-1.035); Squamous Epithelial Cell Urine Occasional /hpf (Few); Urobilinogen Urine 0.2 mg/dL (<2.0); WBC Urine 0-5 /hpf (0-3)
[2024-07-18 14:08] LABS: Influenza A QL RT-PCR Negative (Negative); Influenza B QL RT-PCR Negative (Negative); RSV RNA, RT-PCR Negative (Negative); SARS-CoV-2 RNA PCR Negative (Negative)
[2024-07-18 14:50] LABS: Glucose Point of Care 176 mg/dl (65-105)
[2024-07-18] MEDS: diphenhydrAMINE HCl INJ 50 MG/ML VIAL 25 MG IV PUSH ×2 (15:09→18:04)
[2024-07-18] MEDS: HALOPERIDOL LACTATE 5 MG/ML VIAL 2.5 MG IV PUSH ×2 (15:09→18:04)
[2024-07-18 17:02] LABS: Glucose Point of Care 160 mg/dl (65-105)
[2024-07-18 17:20] LABS: Anion Gap 13 mmol/L (4-12); Blood Urea Nitrogen 20 mg/dL (7-17); Calcium 8.5 mg/dL (8.4-10.2); Carbon Dioxide 19 mmol/L (22-30); Chloride 102 mmol/L (98-107); Estimated Glomerular Filt Rate > 60; Glucose 157 mg/dL (65-110); Potassium 4.1 mmol/L (3.4-5.0); Sodium 134 mmol/L (137-145)
[2024-07-18 17:25] LABS: Hemoglobin A1C 5.9 % (<5.7)
[2024-07-18 17:31] LABS: Phosphorus 2.3 mg/dL (2.5-4.5)
[2024-07-18] MEDS: DEXTROSE 5%/0.9% SOD CHL 1,000 ML 100 ML IV CONT (18:04)
--- NOTE | 2024-07-18 18:55 | PC.NURSE ---
multiple fluid orders not given EDP attempting to keep pt from admission. POC changed o deliver other boluses and nausea medications. pt also made aware of change in plan. awaiting BMP results that will decide is dc or admitted. BMP sent to lab 1402
[2024-07-18 19:10] LABS: Anion Gap 8 mmol/L (4-12); Blood Urea Nitrogen 19 mg/dL (7-17); Calcium 7.8 mg/dL (8.4-10.2); Carbon Dioxide 22 mmol/L (22-30); Chloride 102 mmol/L (98-107); Estimated Glomerular Filt Rate > 60; Glucose 352 mg/dL (65-110); Potassium 3.9 mmol/L (3.4-5.0); Sodium 132 mmol/L (137-145)
[2024-07-18 19:54] LABS: Pregnancy On Board Control Positive; Urine Pregnancy Test Negative
== END 2024-07-18 20:21 | disposition home or self-care (01) ==
PROVIDERS: Emergency Provider Student in an Organized Health Care Education/Training Program; PCP Emergency Medicine
DX: E10.65 Type 1 diabetes mellitus with hyperglycemia (principal); D72.829 Elevated white blood cell count, unspecified; D75.839 Thrombocytosis, unspecified; R82.4 Acetonuria; Z20.822 Contact with and (suspected) exposure to COVID-19; F41.9 Anxiety disorder, unspecified; Z79.4 Long term (current) use of insulin
CPT/HCPCS: 36415; 80048; 80053; 81001; 81025; 82010; 82948; 83036; 83690; 83735; 84100; 85025; 87637; 96361; 96365; 96366; 96375; 96376; 99284; J1200; J1630; J2405; J7030; J7042